=== PATIENT | female | born 1940 | race Hispanic/Latino ===

== ENCOUNTER 2021-11-03 21:43 | Inpatient (IN) | payer MEDICARE ==
[2021-11-03] MEDS ORDERED: SODIUM CHLORIDE 0.9% 1000 ML 1,000 ML IV ONE (22:10)
[2021-11-03] MEDS ORDERED: ACETAMINOPHEN 500 MG TAB PO ONE (22:12)
--- NOTE | 2021-11-03 22:16 | Emergency Department Report ---
ED Shortness of Breath HPI - General Chief Complaint: Dyspnea/Respdistress Stated Complaint: HELENA Time Seen by Provider: 11/03/21 22:05 Source: patient, EMS Mode of arrival: Stretcher Limitations: No Limitations - History of Present Illness Initial Comments: Patient is 81 years old female with history of hypertension, diabetes and arthritis. Patient brought to the emergency room via EMS from home for evaluation of shortness of breath and difficulty breathing for the last 2 to 3 days associated with fever of 102.2 according to the patient . Patient found to be tachypneic with an oxygen saturation initially 76% improved to 88% on nonrebreather. EMS reported that patient received 2 doses of COVID-19 vaccine. MD Complaint: shortness of breath, cough - Related Data Allergies Allergy/AdvReac Type Severity Reaction Status Date / Time codeine Allergy Unknown Unverified 05/25/14 11:35 meperidine HCl [From Demerol] Allergy Unknown Unverified 05/25/14 11:35 morphine Allergy Unknown Unverified 05/25/14 11:35 Penicillins Allergy Swelling Unverified 05/25/14 11:35 ED Review of Systems ROS: Stated complaint: HELENA Other details as noted in HPI Comment: All other systems reviewed and negative Constitutional: chills, fever Respiratory: cough, orthopnea, shortness of breath, SOB with exertion, SOB at rest. denies: wheezing Cardiovascular: denies: chest pain, palpitations Gastrointestinal: denies: abdominal pain, nausea, vomiting Musculoskeletal: denies: back pain Neurological: denies: headache, weakness ED Physical Exam - General Limitations: No Limitations General appearance: alert, in distress - Head Head exam: Present: atraumatic, normocephalic, normal inspection - Eye Eye exam: Present: normal appearance, PERRL - ENT ENT exam: Present: normal exam - Neck Neck exam: Present: normal inspection, full ROM. Absent: tenderness, meningismus - Respiratory Respiratory exam: Present: respiratory distress, rales, accessory muscle use, decreased breath sounds - GI/Abdominal GI/Abdominal exam: Present: soft. Absent: distended, tenderness, guarding - Extremities Exam Extremities exam: Present: pedal edema - Neurological Exam Neurological exam: Present: alert, oriented X3, CN II-XII intact - Skin Skin exam: Present: warm ED Course Vital Signs 11/03/21 22:15 Temperature 99.7 F H Pulse Rate 120 H Respiratory 26 H Rate Blood Pressure 110/70 [Left] O2 Sat by Pulse 88 Oximetry ED Medical Decision Making - Lab Data Result diagrams: 11/03/21 22:32 11/03/21 22:32 - Radiology Data Radiology results: report reviewed - Medical Decision Making Patient is 81 years old female with history of hypertension, diabetes and arthritis. Patient brought to the emergency room via EMS from home for evalua tion of shortness of breath and difficulty breathing for the last 2 to 3 days associated with fever of 102.2 according to the patient . Patient found to be tachypneic with an oxygen saturation initially 76% improved to 88% on nonrebreather. EMS reported that patient received 2 doses of COVID-19 vaccine. Labs reviewed and showed leukocytosis of 29,000. Chest x-ray showed bilateral infiltrate concerning for pneumonia. Patient received Levaquin and vancomycin. Lactic acid is 3.2. Patient started on normal saline with gentle hydration at 125 mL/h. Patient found to be anemic with a hemoglobin of 6.1. MCV 75. Patient denies any hematemesis, hematochezia or melena. No hemoptysis. Patient received 1 units of PRBC. I discussed the patient with Dr. Mckeno, he agreed to admit the patient to medical service for further management. Critical Care Time: Yes Critical care time in (mins) excluding proc time.: 35 Critical care attestation.: If time is entered above; I have spent that time in minutes in the direct care of this critically ill patient, excluding procedure time. ED Disposition Clinical Impression: Acute respiratory failure with hypoxia, Bilateral pneumonia, Suspected COVID-19 virus infection, Acute anemia Disposition: 09 ADMITTED INPATIENT Is pt being admited?: Yes Condition: Stable Instructions: Bacterial Pneumonia (ED) Referrals: PRIMARY CARE, [Primary Care Provider] - 3-5 Days
--- NOTE | 2021-11-03 22:50 | XRay Report ---
CHEST 1 VIEW 11/03/2021 9:34 PM INDICATION / CLINICAL INFORMATION: Dyspnea. 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 LUNGS / PLEURA: Bilateral interstitial opacities and bilateral pleural effusions. Bibasilar opacities likely represent atelectasis. No pneumothorax. ADDITIONAL FINDINGS: No significant additional findings. IMPRESSION: 1. Bilateral interstitial pulmonary edema with bilateral pleural effusions. 2. Bibasilar opacities favor atelectasis. 3. Cardiomegaly. Signer Name: Saul Rodgers MD Signed: 11/03/2021 10:46 PM Workstation Name: [email or web address] [id number]
[2021-11-03 23:00] LABS: Mean Corpuscular HGB Conc 28 % (30-34); Mean Corpuscular Volume 75 fl (79-97); Platelet Count 276 K/mm3 (140-440); Red Blood Count 2.93 M/mm3 (3.65-5.03); Red Cell Distribution Width 19.7 % (13.2-15.2)
[2021-11-03 23:03] LABS: INR 1.4 (0.87-1.13)
[2021-11-03 23:04] LABS: Partial Thromboplastin Time 28.9 Sec. (24.2-36.6)
[2021-11-03 23:07] LABS: Hematocrit 21.9 % (30.3-42.9); Hemoglobin 6.1 gm/dl (10.1-14.3)
[2021-11-03 23:16] LABS: Calcium 8.3 mg/dL (8.4-10.2)
[2021-11-03] MEDS ORDERED: SODIUM CHLORIDE 0.9% 500 ML 500 ML IV ONE (23:19)
[2021-11-03 23:21] LABS: Alanine Aminotransferase 11 units/L (7-56); Albumin 3.5 g/dL (3.9-5)
[2021-11-03 23:45] LABS: Bilirubin,Direct < 0.2 mg/dL (0-0.2)
[2021-11-04] MEDS ORDERED: VANCOMYCIN/NS 1 GM/250 ML 1 GM/250 ML BAG IV ONE (00:01)
[2021-11-04] MEDS ORDERED: dexAMETHasone 4 MG/ML VIAL IV ONE (01:28)
[2021-11-04 01:32] LABS: Chol/HDL Ratio 1.9 %
[2021-11-04] MEDS ORDERED: MORPHINE 4 MG/1 ML INJ IV PRN (02:03)
[2021-11-04] MEDS ORDERED: DEXTROSE 50% IN WATER (25GM) 50 ML SYRINGE IV PRN (02:03)
[2021-11-04] MEDS ORDERED: MAGNESIUM HYDROXIDE (MOM) ORAL LIQD UDC PO PRN (02:03)
[2021-11-04] MEDS ORDERED: MORPHINE 2 MG/1 ML INJ IV PRN (02:03)
[2021-11-04 02:08] LABS: Basophils % (Manual) 0 % (0.0-1.8); Eosinophils % (Manual) 0 % (0.0-4.3); Monocytes % (Manual) 0 % (0.0-7.3); Total Cells Counted 100
[2021-11-04 02:09] LABS: Hypochromasia 2+
[2021-11-04 02:10] LABS: Anisocytosis 1+; Platelet Estimate Consistent w Auto
[2021-11-04] MEDS ORDERED: SODIUM CHLORIDE 0.9% 1000 ML 1,000 ML IV SCH ×2 (02:15)
--- NOTE | 2021-11-04 02:24 | History and Physical Report ---
History of Present Illness Date of examination: 11/04/21 Date of admission: 11/04/2021 Chief complaint: Shortness of Breath History of present illness: 81-year-old female with known history of diabetes mellitus, hypertension and arthritis brought to the emergency room via EMS today for shortness of breath which has been ongoing for the past 3 days. Patient has been having some cough and shortness of breath. According to patient's , patient has also been h aving a fever of about 102.2 F. Upon arrival of EMS patient was found to be tachypneic with O2 saturation of 76% on room air which later improved to 88% on nonrebreather. Work-up in the emergency room today, chest x-ray shows bilateral interstitial pulmonary edema with bilateral pleural effusions.. Bibasilar opacities which favors atelectasis. Lab reveals leukocytosis of 29. Hemoglobin of 6.1. Patient is being prepared for blood transfusion and will also be checked for COVID-19. Past History Past Medical History: No medical history Past Surgical History: No surgical history Social history: no significant social history Family history: no significant family history Medications and Allergies Allergies Allergy/AdvReac Type Severity Reaction Status Date / Time codeine Allergy Unknown Verified 11/04/21 02:20 meperidine HCl [From Demerol] Allergy Unknown Verified 11/04/21 02:21 morphine Allergy Unknown Verified 11/04/21 02:21 Penicillins Allergy Swelling Verified 11/04/21 02:21 Active Meds: Active Medications Acetaminophen (Acetaminophen 325 Mg Tab) 650 mg PO Q6H PRN PRN Reason: Pain MILD(1-3)/Fever >100.5/RODRIGUEZ Dextrose (Dextrose 50% In Water (25gm) 50 Ml Syringe) 50 ml IV Q30MIN PRN; Protocol PRN Reason: Hypoglycemia Dextrose (Dextrose 50% In Water (25gm) 50 Ml Syringe) 50 ml IV Q30MIN PRN; Protocol PRN Reason: Hypoglycemia Heparin Sodium (Porcine) (Heparin 5,000 Unit/1 Ml Vial) 5,000 unit SUB-Q Q8HR YOS[facility] Sodium Chloride (Nacl 0.9% 1000 Ml) 1,000 mls @ 125 mls/hr IV ONCE ONE Stop: 11/04/21 06:09 Sodium Chloride (Nacl 0.9% 1000 Ml) 1,000 mls @ 75 mls/hr IV DIRECT YOSSI Sodium Chloride (Nacl 0.9% 1000 Ml) 1,000 mls @ 75 mls/hr IV DIRECT YOSSI Levofloxacin/Dextrose (Levaquin 750mg/150ml) 750 mg in 150 mls @ 100 mls/hr IV Q24H YOS[facility]; Protocol Insulin Human Lispro (Insulin Lispro 100 Unit/Ml) 0 unit SUB-Q ACHS YOSSI; Protocol Insulin Human Lispro (Insulin Lispro 100 Unit/Ml) 0 unit SUB-Q Q6HR YOS[facility]; Protocol Magnesium Hydroxide (Magnesium Hydroxide (Mom) Oral Liqd Udc) 30 ml PO Q4H PRN PRN Reason: Constipation Morphine Sulfate (Morphine 2 Mg/1 Ml Inj) 2 mg IV Q4H PRN PRN Reason: Pain, Moderate (4-6) Morphine Sulfate (Morphine 4 Mg/1 Ml Inj) 4 mg IV Q4H PRN PRN Reason: Pain , Severe (7-10) Ondansetron HCl (Ondansetron 4 Mg/2 Ml Inj) 4 mg IV Q8H PRN PRN Reason: Nausea And Vomiting Sodium Chloride (Sodium Chloride 0.9% 10 Ml Flush Syringe) 10 ml IV BID YOSSI Sodium Chloride (Sodium Chloride 0.9% 10 Ml Flush Syringe) 10 ml IV PRN PRN PRN Reason: LINE FLUSH Review of Systems Constitutional: fever, no chills Ears, nose, mouth and throat: no nasal congestion, no sore throat Cardiovascular: no chest pain, no palpitations Respiratory: cough, shortness of breath Gastrointestinal: no abdominal pain, no nausea, no vomiting, no diarrhea Genitourinary Female: no pelvic pain, no flank pain, no dysuria, no hematuria Musculoskeletal: no neck pain, no low back pain Integumentary: no rash, no pruritis Neurological: no headaches, no confusion Psychiatric: no anxiety, no depression Endocrine: no polydipsia, no polyuria, no nocturia Exam - Constitutional Vitals: Temp Pulse Resp BP Pulse Ox 99.7 F H 120 H 26 H 110/70 88 11/03/21 22:15 11/03/21 22:15 11/03/21 22:15 11/03/21 22:15 11/03/21 22:15 General appearance: Present: no acute distress, well-nourished, other (Moderate pallor) - EENT Eyes: Present: PERRL, EOM intact. Absent: scleral icterus ENT: hearing intact, clear oral mucosa, dentition normal - Neck Neck: Present: supple, normal ROM - Respiratory Respiratory effort: normal Respiratory: bilateral: diminished - Cardiovascular Rhythm: regular Heart Sounds: Present: S1 & S2. Absent: systolic murmur, diastolic murmur, rub, click - Extremities Extremities: no ischemia, pulses intact, pulses symmetrical, normal temperature, normal color, Full ROM Extremity abnormal: edema (1+ bilateral lower extremity edema) Peripheral Pulses: within normal limits - Abdominal General gastrointestinal: Present: soft, non-tender, non-distended, normal bowel sounds. Absent: mass - Integumentary Integumentary: Present: clear, warm, dry. Absent: rash - Musculoskeletal Musculoskeletal: strength equal bilaterally - Psychiatric Psychiatric: appropriate mood/affect, intact judgment & insight, memory intact, cooperative - Neurologic Neurologic: CNII-XII intact, no focal deficits, moves all extremities HEART Score - HEART Score Troponin: Troponin T 0.051 ng/mL (0.00-0.029) H D 11/04/21 00:59 Results - Labs CBC & Chem 7: 11/03/21 22:32 11/03/21 22:32 Labs: Abnormal lab results 11/03/21 11/03/21 11/03/21 Range/Units 22:32 22:32 22:32 WBC 29.3 H (4.5-11.0) K/mm3 RBC 2.93 L (3.65-5.03) M/mm3 Hgb 6.1 L (10.1-14.3) gm/dl Hct 21.9 L (30.3-42.9) % MCV 75 L (79-97) fl MCH 21 L (28-32) pg MCHC 28 L (30-34) % RDW 19.7 H (13.2-15.2) % Seg Neuts % (Manual) 97.0 H (40.0-70.0) % Lymphocytes % (Manual) 3.0 L (13.4-35.0) % Seg Neutrophils # Man 28.4 H (1.8-7.7) K/mm3 Lymphocytes # (Manual) 0.9 L (1.2-5.4) K/mm3 PT 18.6 H (12.2-14.9) Sec. INR 1.40 H (0.87-1.13) Carbon Dioxide 20 L (22-30) mmol/L BUN 33 H (7-17) mg/dL Glucose 119 H (65-100) mg/dL Lactic Acid (0.7-2.0) mmol/L Calcium 8.3 L (8.4-10.2) mg/dL Alkaline Phosphatase (35-129) units/L Troponin T 0.035 H (0.00-0.029) ng/mL NT-Pro-B Natriuret Pep (0-900) pg/mL Albumin (3.9-5) g/dL LDL Cholesterol Direct 34 L (50-130) mg/dL Crossmatch 11/03/21 11/03/21 11/03/21 Range/Units 22:32 22:32 23:57 WBC (4.5-11.0) K/mm3 RBC (3.65-5.03) M/mm3 Hgb (10.1-14.3) gm/dl Hct (30.3-42.9) % MCV (79-97) fl MCH (28-32) pg MCHC (30-34) % RDW (13.2-15.2) % Seg Neuts % (Manual) (40.0-70.0) % Lymphocytes % (Manual) (13.4-35.0) % Seg Neutrophils # Man (1.8-7.7) K/mm3 Lymphocytes # (Manual) (1.2-5.4) K/mm3 PT (12.2-14.9) Sec. INR (0.87-1.13) Carbon Dioxide (22-30) mmol/L BUN (7-17) mg/dL Glucose (65-100) mg/dL Lactic Acid 3.70 H* (0.7-2.0) mmol/L Calcium (8.4-10.2) mg/dL Alkaline Phosphatase 139 H (35-129) units/L Troponin T (0.00-0.029) ng/mL NT-Pro-B Natriuret Pep 7895 H (0-900) pg/mL Albumin 3.5 L (3.9-5) g/dL LDL Cholesterol Direct (50-130) mg/dL Crossmatch See Detail 11/04/21 Range/Units 00:59 WBC (4.5-11.0) K/mm3 RBC (3.65-5.03) M/mm3 Hgb (10.1-14.3) gm/dl Hct (30.3-42.9) % MCV (79-97) fl MCH (28-32) pg MCHC (30-34) % RDW (13.2-15.2) % Seg Neuts % (Manual) (40.0-70.0) % Lymphocytes % (Manual) (13.4-35.0) % Seg Neutrophils # Man (1.8-7.7) K/mm3 Lymphocytes # (Manual) (1.2-5.4) K/mm3 PT (12.2-14.9) Sec. INR (0.87-1.13) Carbon Dioxide (22-30) mmol/L BUN (7-17) mg/dL Glucose (65-100) mg/dL Lactic Acid (0.7-2.0) mmol/L Calcium (8.4-10.2) mg/dL Alkaline Phosphatase (35-129) units/L Troponin T 0.051 H D (0.00-0.029) ng/mL NT-Pro-B Natriuret Pep (0-900) pg/mL Albumin (3.9-5) g/dL LDL Cholesterol Direct (50-130) mg/dL Crossmatch Assessment and Plan - Patient Problems (1) Acute respiratory failure with hypoxia Current Visit: Yes Status: Acute Plan to address problem: Possibly secondary to underlying pleural effusion versus pneumonia. Will keep O2 saturation greater or equal to 92%. (2) Acute anemia Current Visit: Yes Status: Acute Plan to address problem: Patient denies any rectal bleeding. She is being prepared for blood transfusion. We will monitor CBC. We will check stool Hemoccults. (3) Bilateral pneumonia Current Visit: Yes Status: Acute Plan to address problem: Patient placed on empiric IV antibiotics. Will await culture results. (4) Suspected COVID-19 virus infection Current Visit: Yes Status: Acute Plan to address problem: Will await COVID-19 testing. (5) DVT prophylaxis Current Visit: Yes Status: Acute Plan to address problem: Patient placed on subcutaneous heparin. (6) Full code status Current Visit: Yes Status: Acute Plan to address problem: Patient is full code.
[2021-11-04] MEDS ORDERED: INSULIN LISPRO 100 UNIT/ML SUB-Q SCH (06:00)
[2021-11-04] MEDS: INSULIN LISPRO 100 UNIT/ML SUB-Q SCH ×2 (09:29→17:39)
--- NOTE | 2021-11-04 09:40 | Progress Note ---
Assessment and Plan Assessment and plan: History of present illness: 81-year-old female with known history of diabetes mellitus, hypertension and arthritis brought to the emergency room via EMS today for shortness of breath which has been ongoing for the past 3 days. Patient has been having some cough and shortness of breath. According to patient's , patient has also been having a fever of about 102.2 F. Upon arrival of EMS patient was found to be tachypneic with O2 saturation of 76% on room air which later improved to 88% on nonrebreather. Disposition : ICU Hospital Course to date: 11/04/2021: Empiric therapy with iv levaquin/vancomycin. COVID PCR pending. Will consult ID. PCCM consulted, will follow recs. Hypotensive this AM, ordered bolus and fluids at 150 cc/hr. May require pressor support if bp does not improve. Assessment and Plan: #Acute respiratory failure with hypoxia - nrb - abx iv - work up as below - ccm consultation #Acute microcytic anemia - hgb 6.1, mcv: 75 - ordered 1 unit prbc #Severe Sepsis POA vs septic shock - wbc: 29.3, LA 3.7, febrile, source pulmonary - hypotensive, fluid bolus, blood products...may require pressors if unresponsive. - bcx, scx, ucx - empiric iv abx #Bilateral pneumonia #Suspected COVID-19 virus infection #Advance care planning Disease education conducted, care plan discussed, diagnoses discussed, prognosis discussed, patient is full code, patient acknowledges understanding and agree with care plan, +30 minutes. The high probability of a clinically significant, sudden or life threatening deterioration of the [multi] system(s) required my full and direct attention, intervention and personal management. The aggregate critical care time was [60] minutes. This time is in addition to time spent performing reported procedures but includes the following: [x] Data Review and interpretation [x] Patient assessment and monitoring of vital signs [x] Documentation [x] Medication orders and management History Interval history: Slightly confused on my encounter. Patient pulse oximeter malfunction but just prior saw sats 90's. Ventimask on but barely. Patient state she continues to feel unwell, very weak. Denies chest pain but does state she is still short of breath. Endorses chills. Hospitalist Physical - Physical exam Narrative exam: Physical Exam: VITAL SIGNS: Reviewed. GENERAL: The patient appears normally developed, Vital signs as documented. Frail appearing elderly woman. HEAD: No signs of head trauma. EYES: Pupils are equal. Extraocular motions intact. EARS: Hearing grossly intact. MOUTH: Oropharynx is normal. NECK: No adenopathy, no JVD. CHEST: Bl rhonchi CARDIAC: Regular rate and rhythm. S1 and S2, without murmurs, gallops, or rubs. VASCULAR: No Edema. Peripheral pulses normal and equal in all extremities. ABDOMEN: Soft, non tender and non distended. No rebound or guarding, and no masses palpated. Bowel Sounds normal. MUSCULOSKELETAL: Good range of motion of all major joints. Extremities without clubbing, cyanosis or edema. NEUROLOGIC EXAM: Alert and oriented x 4. no focal sensory or strength deficits. PSYCHIATRIC: anxious appearing SKIN: detail exam as documented in skin assessment - Constitutional Vitals: Temp Pulse Resp BP Pulse Ox 98.1 F 88 14 68/50 91 11/04/21 06:55 11/04/21 08:00 11/04/21 08:00 11/04/21 08:00 11/04/21 07:46 General appearance: Present: no acute distress, well-nourished, other (Moderate pallor) HEART Score - HEART Score Troponin: Troponin T 0.051 ng/mL (0.00-0.029) H D 11/04/21 00:59 Results - Labs CBC & Chem 7: 11/03/21 22:32 11/03/21 22:32 Labs: Laboratory Last Values WBC 29.3 K/mm3 (4.5-11.0) H 11/03/21 22:32 RBC 2.93 M/mm3 (3.65-5.03) L 11/03/21 22:32 Hgb 6.1 gm/dl (10.1-14.3) L 11/03/21 22:32 Hct 21.9 % (30.3-42.9) L 11/03/21 22:32 MCV 75 fl (79-97) L 11/03/21 22:32 MCH 21 pg (28-32) L 11/03/21 22:32 MCHC 28 % (30-34) L 11/03/21 22:32 RDW 19.7 % (13.2-15.2) H 11/03/21 22:32 Plt Count 276 K/mm3 (140-440) 11/03/21 22:32 Add Manual Diff Complete 11/03/21: Total Counted 100 11/03/21 22:32 Seg 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 11/03/21 22:32 Seg Neuts % (Manual) 97.0 % (40.0-70.0) H 11/03/21 22:32 Band Neutrophils % 0 % 11/03/21 22:32 Lymphocytes % (Manual) 3.0 % (13.4-35.0) L 11/03/21 22:32 Reactive Lymphs % (Man) 0 % 11/03/21 22:32 Monocytes % (Manual) 0 % (0.0-7.3) 11/03/21:32 Eosinophils % (Manual) 0 % (0.0-4.3) 11/03/21:32 Basophils % (Manual) 0 % (0.0-1.8) 11/03/21 22:32 Metamyelocytes % 0 % 11/03/21: Myelocytes % 0 % 11/03/21:32 Promyelocytes % 0 % 11/03/21 22:32 Blast Cells % 0 % 11/03/21:32 Nucleated RBC % Not Reportable 11/03/21: Seg Neutrophils # Man 28.4 K/mm3 (1.8-7.7) H 11/03/21 22:32 Band Neutrophils # 0.0 K/mm3 11/03/21 22:32 Lymphocytes # (Manual) 0.9 K/mm3 (1.2-5.4) L 11/03/21 22:32 Abs React Lymphs (Man) 0.0 K/mm3 11/03/21:32 Monocytes # (Manual) 0.0 K/mm3 (0.0-0.8) 11/03/21 22:32 Eosinophils # (Manual) 0.0 K/mm3 (0.0-0.4) 11/03/21 22:32 Basophils # (Manual) 0.0 K/mm3 (0.0-0.1) 11/03/21 22:32 Metamyelocytes # 0.0 K/mm3 11/03/21 22:32 Myelocytes # 0.0 K/mm3 11/03/21 22:32 Promyelocytes # 0.0 K/mm3 11/03/21 22:32 Blast Cells # 0.0 K/mm3 11/03/21 22:32 WBC Morphology Not Reportable 11/03/21 22:32 Hypersegmented Neuts Not Reportable 11/03/21 22:32 Hyposegmented Neuts Not Reportable 11/03/21 22:32 Hypogranular Neuts Not Reportable 11/03/21 22:32 Smudge Cells Not Reportable 11/03/21 22:32 Toxic Granulation Not Reportable 11/03/21 22:32 Toxic Vacuolation Not Reportable 11/03/21 22:32 Dohle Bodies Not Reportable 11/03/21 22:32 Pelger-Huet Anomaly Not Reportable 11/03/21 22:32 Irina Rods Not Reportable 11/03/21 22:32 Platelet Estimate Consistent w auto 11/03/21 22:32 Clumped Platelets Not Reportable 11/03/21 22:32 Plt Clumps, EDTA Not Reportable 11/03/21 22:32 Large Platelets Not Reportable 11/03/21 22:32 Giant Platelets Not Reportable 11/03/21 22:32 Platelet Satelliting Not Reportable 11/03/21 22:32 Plt Morphology Comment Not Reportable 11/03/21 22:32 RBC Morphology Not Reportable 11/03/21 22:32 Dimorphic RBCs Not Reportable 11/03/21 22:32 Polychromasia Not Reportable 11/03/21 22:32 Hypochromasia 2+ 11/03/21 22:32 Poikilocytosis Not Reportable 11/03/21 22:32 Anisocytosis 1+ 11/03/21 22:32 Microcytosis Not Reportable 11/03/21 22:32 Macrocytosis Not Reportable 11/03/21 22:32 Spherocytes Not Reportable 11/03/21 22:32 Pappenheimer Bodies Not Reportable 11/03/21 22:32 Sickle Cells Not Reportable 11/03/21 22:32 Target Cells Not Reportable 11/03/21 22:32 Tear Drop Cells Not Reportable 11/03/21 22:32 Ovalocytes Not Reportable 11/03/21 22:32 Helmet Cells Not Reportable 11/03/21 22:32 Odonnell-[place] Bodies Not Reportable 11/03/21 22:32 Elma Rings Not Reportable 11/03/21 22:32 [place] Cells Not Reportable 11/03/21 22:32 Bite Cells Not Reportable 11/03/21 22:32 Crenated Cell Not Reportable 11/03/21 22:32 Elliptocytes Not Reportable 11/03/21 22:32 Acanthocytes (Spur) Not Reportable 11/03/21 22:32 Rouleaux Not Reportable 11/03/21 22:32 Hemoglobin C Crystals Not Reportable 11/03/21 22:32 Schistocytes Not Reportable 11/03/21 22:32 Malaria parasites Not Reportable 11/03/21 22:32 Godfrey Bodies Not Reportable 11/03/21 22:32 Hem Pathologist Commnt No 11/03/21 22:32 PT 18.6 Sec. (12.2-14.9) H 11/03/21 22:32 INR 1.40 (0.87-1.13) H 11/03/21 22:32 APTT 28.9 Sec. (24.2-36.6) 11/03/21 22:32 Sodium 138 mmol/L (137-145) 11/03/21 22:32 Potassium 4.0 mmol/L (3.6-5.0) 11/03/21 22:32 Chloride 101.3 mmol/L (98-107) 11/03/21 22:32 Carbon Dioxide 20 mmol/L (22-30) L 11/03/21 22:32 Anion Gap 21 mmol/L 11/03/21 22:32 BUN 33 mg/dL (7-17) H 11/03/21 22:32 Creatinine 1.0 mg/dL (0.6-1.2) 11/03/21 22:32 Estimated GFR 53 ml/min 11/03/21 22:32 BUN/Creatinine Ratio 33 % 11/03/21 22:32 Glucose 119 mg/dL (65-100) H 11/03/21 22:32 Lactic Acid 3.70 mmol/L (0.7-2.0) H* 11/03/21 22:32 Calcium 8.3 mg/dL (8.4-10.2) L 11/03/21 22:32 Total Bilirubin 0.40 mg/dL (0.1-1.2) 11/03/21 22:32 Direct Bilirubin < 0.2 mg/dL (0-0.2) 11/03/21 22:32 Indirect Bilirubin 0.2 mg/dL 11/03/21 22:32 AST 19 units/L (5-40) 11/03/21 22:32 ALT 11 units/L (7-56) 11/03/21 22:32 Alkaline Phosphatase 139 units/L (35-129) H 11/03/21 22:32 Troponin T 0.051 ng/mL (0.00-0.029) H D 11/04/21 00:59 NT-Pro-B Natriuret Pep 7895 pg/mL (0-900) H 11/03/21 22:32 Total Protein 6.5 g/dL (6.3-8.2) 11/03/21 22:32 Albumin 3.5 g/dL (3.9-5) L 11/03/21 22:32 Albumin/Globulin Ratio 1.2 % 11/03/21 22:32 Triglycerides 66 mg/dL (2-149) 11/03/21 22:32 Cholesterol 80 mg/dL (50-199) 11/03/21 22:32 LDL Cholesterol Direct 34 mg/dL (50-130) L 11/03/21 22:32 HDL Cholesterol 42 mg/dL (40-59) 11/03/21 22:32 Cholesterol/HDL Ratio 1.90 % 11/03/21 22:32 Blood Type O POSITIVE 11/03/21 23:57 Antibody Screen Negative 11/03/21 23:57 Crossmatch See Detail 11/03/21 23:57 Microbiology: Microbiology 11/03/21 22:57 Peripheral/Venous Blood Culture - Preliminary Culture in Progress 11/03/21 22:32 Peripheral/Venous Blood Culture - Preliminary Culture in Progress Active Medications - Current Medications Current Medications: Generic Name Dose Route Start Last Admin Trade Name Freq PRN Reason Stop Dose Admin Acetaminophen 650 mg 11/04/21 02:03 Acetaminophen 325 Mg Tab PO Q6H PRN Pain MILD(1-3)/Fever >100.5/RODRIGUEZ Dextrose 50 ml 11/04/21 02:03 Dextrose 50% In Water (25gm) 50 Ml Syringe IV Q30MIN PRN Hypoglycemia Protocol Heparin Sodium (Porcine) 5,000 unit 11/04/21 06:00 Heparin 5,000 Unit/1 Ml Vial SUB-Q Q8HR [facility] Sodium Chloride 1,000 mls @ 75 mls/hr 11/04/21 02:15 Nacl 0.9% 1000 Ml IV DIRECT YOSSI Levofloxacin/Dextrose 750 mg in 150 mls @ 100 mls/hr 11/04/21 03:00 11/04/21 02:55 Levaquin 750mg/150ml IV 100 mls/hr Q48H [facility] Administration Protocol Insulin Human Lispro 0 unit 11/04/21 07:30 Insulin Lispro 100 Unit/Ml SUB-Q ACHS YOSSI Protocol Insulin Human Lispro 0 unit 11/04/21 06:00 Insulin Lispro 100 Unit/Ml SUB-Q Q6HR [facility] Protocol Magnesium Hydroxide 30 ml 11/04/21 02:03 Magnesium Hydroxide (Mom) Oral Liqd Udc PO Q4H PRN Constipation Ondansetron HCl 4 mg 11/04/21 02:03 Ondansetron 4 Mg/2 Ml Inj IV Q8H PRN Nausea And Vomiting Sodium Chloride 10 ml 11/04/21 10:00 Sodium Chloride 0.9% 10 Ml Flush Syringe IV BID YOSSI Sodium Chloride 10 ml 11/04/21 02:03 Sodium Chloride 0.9% 10 Ml Flush Syringe IV PRN PRN LINE FLUSH
[2021-11-04 14:33] LABS: Mean Corpuscular HGB Conc 29 % (30-34); Mean Corpuscular Volume 78 fl (79-97); Platelet Count 231 K/mm3 (140-440); Red Blood Count 3.28 M/mm3 (3.65-5.03); Red Cell Distribution Width 19.1 % (13.2-15.2)
[2021-11-04 14:34] LABS: Hematocrit 25.5 % (30.3-42.9); Hemoglobin 7.3 gm/dl (10.1-14.3)
--- NOTE | 2021-11-04 14:44 | Consultation ---
History of Present Illness - Reason for Consult Consult date: 11/04/21 b/l pna, COVID PUI Requesting physician: FREDERICK DALTON - History of Present Illness The patient is a 81-year-old female with diabetes mellitus, hypertension, arthritis was admitted with shortness of breath. She was also having fever. Upon evaluation in the ER, chest x-ray showed bilateral opacities concerning for pneumonia versus pulmonary edema. COVID-19 PCR was ordered and is pending. She was febrile at home reportedly, T-max here 99.7 F. Labs showed leukocytosis with WBC 29.3, lactate 3.7, troponin 0.051, NT proBNP 7895, creatinine 1.0 Review of Systems: reviewed in the chart, unable to obtain, minimize risk of transmission Past History Past Medical History: No medical history Past Surgical History: No surgical history Social history: no significant social history Family history: no significant family history Medications and Allergies Allergies Allergy/AdvReac Type Severity Reaction Status Date / Time codeine Allergy Unknown Verified 11/04/21 02:20 meperidine HCl [From Demerol] Allergy Unknown Verified 11/04/21 02:21 morphine Allergy Unknown Verified 11/04/21 02:21 Penicillins Allergy Swelling Verified 11/04/21 02:21 Home Medications Medication Instructions Recorded Confirmed Last Taken Type Azelastine HCl [Azelastine HCl 1 drop OU BID 11/04/21 11/04/21 Unknown History 0.05%] HYDROcodone/APAP 10-325 [[place] 1 each PO Q8HR PRN 11/04/21 11/04/21 Unknown History 10/325] allopurinoL [Zyloprim] 300 mg PO QDAY 11/04/21 11/04/21 Unknown History Active Meds: Active Medications Acetaminophen (Acetaminophen 325 Mg Tab) 650 mg PO Q6H PRN PRN Reason: Pain MILD(1-3)/Fever >100.5/RODRIGUEZ Dextrose (Dextrose 50% In Water (25gm) 50 Ml Syringe) 50 ml IV Q30MIN PRN; Protocol PRN Reason: Hypoglycemia Heparin Sodium (Porcine) (Heparin 5,000 Unit/1 Ml Vial) 5,000 unit SUB-Q Q8HR [facility] Sodium Chloride (Nacl 0.9% 1000 Ml) 1,000 mls @ 150 mls/hr IV DIRECT [facility] Last Admin: 11/04/21 09:29 Dose: 150 mls/hr Ceftriaxone Sodium (Rocephin/Ns 2 Gm/100 Ml) 2 gm in 100 mls @ 200 mls/hr IV Q24HR [facility]; Protocol Insulin Human Lispro (Insulin Lispro 100 Unit/Ml) 0 unit SUB-Q ACHS [facility]; Protocol Last Admin: 11/04/21 09:29 Dose: Not Given Magnesium Hydroxide (Magnesium Hydroxide (Mom) Oral Liqd Udc) 30 ml PO Q4H PRN PRN Reason: Constipation Ondansetron HCl (Ondansetron 4 Mg/2 Ml Inj) 4 mg IV Q8H PRN PRN Reason: Nausea And Vomiting Sodium Chloride (Sodium Chloride 0.9% 10 Ml Flush Syringe) 10 ml IV BID [facility] Sodium Chloride (Sodium Chloride 0.9% 10 Ml Flush Syringe) 10 ml IV PRN PRN PRN Reason: LINE FLUSH Physical Examination - Physical Exam Narrative exam: Physical Exam (reviewed in chart to minimize risk of transmission) Constitutional: deferred Head, Ears, Nose: deferred Eyes: deferred Neck: deferred Oral: deferred Cardiovascular: deferred Respiratory: deferred GI: deferred Musculoskeletal: deferred Skin: deferred Hem/Lymphatic: deferred Psych: deferred Neurological: deferred - Constitutional Vitals: Vital Signs Temp Pulse Resp BP Pulse Ox 98.1 F 88 21 73/46 95 11/04/21 06:55 11/04/21 09:00 11/04/21 09:00 11/04/21 09:00 11/04/21 09:00 Temperature -Last 24 Hours Temperature 98.1 F Temperature 97.9 F Temperature 98.4 F Temperature 98.2 F Temperature 98.3 F Temperature 98.3 F Temperature 99.7 F Results - Labs CBC & Chem 7: 11/04/21 13:58 11/03/21 22:32 Labs: Abnormal lab results 11/03/21 11/03/21 11/03/21 Range/Units 22:32 22:32 22:32 WBC 29.3 H (4.5-11.0) K/mm3 RBC 2.93 L (3.65-5.03) M/mm3 Hgb 6.1 L (10.1-14.3) gm/dl Hct 21.9 L (30.3-42.9) % MCV 75 L (79-97) fl MCH 21 L (28-32) pg MCHC 28 L (30-34) % RDW 19.7 H (13.2-15.2) % Seg Neuts % (Manual) 97.0 H (40.0-70.0) % Lymphocytes % (Manual) 3.0 L (13.4-35.0) % Seg Neutrophils # Man 28.4 H (1.8-7.7) K/mm3 Lymphocytes # (Manual) 0.9 L (1.2-5.4) K/mm3 PT 18.6 H (12.2-14.9) Sec. INR 1.40 H (0.87-1.13) Carbon Dioxide 20 L (22-30) mmol/L BUN 33 H (7-17) mg/dL Glucose 119 H (65-100) mg/dL Lactic Acid (0.7-2.0) mmol/L Calcium 8.3 L (8.4-10.2) mg/dL Alkaline Phosphatase (35-129) units/L Troponin T 0.035 H (0.00-0.029) ng/mL NT-Pro-B Natriuret Pep (0-900) pg/mL Albumin (3.9-5) g/dL LDL Cholesterol Direct 34 L (50-130) mg/dL Crossmatch 11/03/21 11/03/21 11/03/21 Range/Units 22:32 22:32 23:57 WBC (4.5-11.0) K/mm3 RBC (3.65-5.03) M/mm3 Hgb (10.1-14.3) gm/dl Hct (30.3-42.9) % MCV (79-97) fl MCH (28-32) pg MCHC (30-34) % RDW (13.2-15.2) % Seg Neuts % (Manual) (40.0-70.0) % Lymphocytes % (Manual) (13.4-35.0) % Seg Neutrophils # Man (1.8-7.7) K/mm3 Lymphocytes # (Manual) (1.2-5.4) K/mm3 PT (12.2-14.9) Sec. INR (0.87-1.13) Carbon Dioxide (22-30) mmol/L BUN (7-17) mg/dL Glucose (65-100) mg/dL Lactic Acid 3.70 H* (0.7-2.0) mmol/L Calcium (8.4-10.2) mg/dL Alkaline Phosphatase 139 H (35-129) units/L Troponin T (0.00-0.029) ng/mL NT-Pro-B Natriuret Pep 7895 H (0-900) pg/mL Albumin 3.5 L (3.9-5) g/dL LDL Cholesterol Direct (50-130) mg/dL Crossmatch See Detail 11/04/21 11/04/21 Range/Units 00:59 13:58 WBC 27.9 H (4.5-11.0) K/mm3 RBC 3.28 L (3.65-5.03) M/mm3 Hgb 7.3 L (10.1-14.3) gm/dl Hct 25.5 L (30.3-42.9) % MCV 78 L (79-97) fl MCH 22 L (28-32) pg MCHC 29 L (30-34) % RDW 19.1 H (13.2-15.2) % Seg Neuts % (Manual) (40.0-70.0) % Lymphocytes % (Manual) (13.4-35.0) % Seg Neutrophils # Man (1.8-7.7) K/mm3 Lymphocytes # (Manual) (1.2-5.4) K/mm3 PT (12.2-14.9) Sec. INR (0.87-1.13) Carbon Dioxide (22-30) mmol/L BUN (7-17) mg/dL Glucose (65-100) mg/dL Lactic Acid (0.7-2.0) mmol/L Calcium (8.4-10.2) mg/dL Alkaline Phosphatase (35-129) units/L Troponin T 0.051 H D (0.00-0.029) ng/mL NT-Pro-B Natriuret Pep (0-900) pg/mL Albumin (3.9-5) g/dL LDL Cholesterol Direct (50-130) mg/dL Crossmatch - Imaging and Cardiology Chest x-ray: report reviewed, image reviewed (b/l atelectasis v/s pna, cardiac device present) Assessment and Plan Cultures: SARS CoV2 PCR: Pending 11/03/2021 blood culture: 2 sets positive for GPC A/P: 81-year-old female with diabetes mellitus, hypertension, arthritis was admitted with shortness of breath. She was also having fever: #Severe sepsis, secondary to bilateral pneumonia: Likely bacterial. Rule out COVID-19 also. #GPC bacteremia: Likely secondary to above. Does have indwelling cardiac device. #Acute hypoxic respiratory failure: Secondary to above. Requiring NRB. Recs: -Empiric ceftriaxone, vancomycin -Follow-up blood cultures -Repeat blood cultures ordered -TTE ordered Gumaro Baires MD, FACP, [facility] O: [phone] F: [phone]
[2021-11-04] MEDS ORDERED: VANCOMYCIN PHARMACY TO DOSE IV SCH (15:00)
[2021-11-04] MEDS: HEPARIN 5,000 UNIT/1 ML VIAL SUB-Q SCH ×2 (15:20→17:40)
[2021-11-04 15:23] LABS: Band Neutrophils # (Manual) 0.3 K/mm3; Basophils % (Manual) 0 % (0.0-1.8); Eosinophils % (Manual) 0 % (0.0-4.3); Total Cells Counted 100
[2021-11-04 15:24] LABS: Anisocytosis 1+; Hypochromasia 2+; Platelet Estimate Consistent w Auto; Toxic Granulation 1+
[2021-11-04] MEDS: cefTRIAXone/NS 2 GM/100 ML 2 GM/100 ML BAG IV SCH (18:45)
[2021-11-05] MEDS: busPIRone 5 MG TAB PO SCH ×2 (00:03→23:39)
[2021-11-05] MEDS: ACETAMINOPHEN 325 MG TAB PO PRN (00:04)
[2021-11-05] MEDS: HEPARIN 5,000 UNIT/1 ML VIAL SUB-Q SCH ×4 (00:07→23:40)
[2021-11-05] MEDS: HYDROcodone/ACETAMINOPHEN 10-325MG TAB PO PRN ×2 (01:12→08:35)
[2021-11-05 06:28] LABS: Mean Corpuscular HGB Conc 29 % (30-34); Mean Corpuscular Volume 78 fl (79-97); Platelet Count 268 K/mm3 (140-440); Red Blood Count 3.57 M/mm3 (3.65-5.03); Red Cell Distribution Width 19.2 % (13.2-15.2)
[2021-11-05] MEDS: INSULIN LISPRO 100 UNIT/ML SUB-Q SCH ×5 (06:30→22:18)
[2021-11-05 06:41] LABS: Hematocrit 27.7 % (30.3-42.9)
[2021-11-05 06:57] LABS: Albumin 3.2 g/dL (3.9-5); C-Reactive Protein 22.2 mg/dL (0.00-1.30); Calcium 8.9 mg/dL (8.4-10.2)
--- NOTE | 2021-11-05 07:25 | Consultation ---
History of Present Illness Consult date: 11/05/21 Requesting physician: FREDERICK DALTON Reason for consult: other History of present illness: 81-year-old female with known history of diabetes mellitus, hypertension and arthritis brought to the emergency room via EMS today for shortness of breath which has been ongoing for the past 3 days. Patient has been having some cough and shortness of breath. According to patient's , patient has also been having a fever of about 102.2 F. Upon arrival of EMS patient was found to be tachypneic with O2 saturation of 76% on room air which later improved to 88% on nonrebreather. Work-up in the emergency room today, chest x-ray shows bilateral interstitial pulmonary edema with bilateral pleural effusions. Bibasilar opacities which favors atelectasis. Lab reveals leukocytosis of 29. Hemoglobin of 6.1. lactate 3.7, troponin 0.051, NT proBNP 7895, creatinine 1.0 Patient is being prepared for blood transfusion and will also be checked for COVID-19. A critical care consult was placed. when I saw her the patient was in distress, she had increased work of breathing and was soft blood pressure. She was awake and alert, with conversational dyspnea. She has just received 1 unit PRBC and she has been seen by ID and started on antibiotics I discussed with the RT- placed on BIPAP Discussed with the RN, and order placed for PICC line placement and Levophed ordered Discussed with hospital medicine Past History Past Medical History: other (s/p cardiac device) Past Surgical History: No surgical history Social history: no significant social history Family history: no significant family history Medications and Allergies Allergies Allergy/AdvReac Type Severity Reaction Status Date / Time codeine Allergy Unknown Verified 11/04/21 02:20 meperidine HCl [From Demerol] Allergy Unknown Verified 11/04/21 02:21 morphine Allergy Unknown Verified 11/04/21 02:21 Penicillins Allergy Swelling Verified 11/04/21 02:21 Home Medications Medication Instructions Recorded Confirmed Last Taken Type Buspirone HCl [busPIRone] 15 mg PO DAILY 11/04/21 11/04/21 Unknown History Furosemide [Lasix] 40 mg PO QDAY 11/04/21 11/04/21 Unknown History HYDROcodone/APAP 10-325 [[place] 1 each PO Q8HR PRN 11/04/21 11/04/21 Unknown History 10/325] Levothyroxine [Synthroid] 125 mcg PO QAM 11/04/21 11/04/21 Unknown History Loratadine [Allergy Relief] 10 mg PO QDAY PRN 11/04/21 11/04/21 Unknown History Meclizine [Antivert] 12.5 mg PO BID PRN 11/04/21 11/04/21 Unknown History Nitroglycerin [Nitrostat] 0.4 mg SL PRN PRN 11/04/21 11/04/21 Unknown History Omeprazole Magnesium [Prilosec] 20 mg PO QDAY 11/04/21 11/04/21 Unknown History Ondansetron HCl [Zofran] 4 mg PO Q6HR PRN 11/04/21 11/04/21 Unknown History Pravastatin Sodium [Pravastatin] 20 mg PO QHS 11/04/21 11/04/21 Unknown History Prednisone [predniSONE (Rebeca) ER 1 mg PO QDAY 11/04/21 11/04/21 Unknown History TAB] allopurinoL [Zyloprim] 300 mg PO QDAY 11/04/21 11/04/21 Unknown History Active Meds: Active Medications Acetaminophen (Acetaminophen 325 Mg Tab) 650 mg PO Q6H PRN PRN Reason: Pain MILD(1-3)/Fever >100.5/RODRIGUEZ Last Admin: 11/05/21 00:04 Dose: 650 mg Hydrocodone Bitart/Acetaminophen (Hydrocodone/Acetaminophen 10-325mg Tab) 1 each PO Q6H PRN PRN Reason: Pain, Moderate (4-6) Last Admin: 11/05/21 01:12 Dose: 1 each Buspirone HCl (Buspirone 5 Mg Tab) 7.5 mg PO BID [facility] Last Admin: 11/05/21 00:03 Dose: 7.5 mg Dextrose (Dextrose 50% In Water (25gm) 50 Ml Syringe) 50 ml IV Q30MIN PRN; Protocol PRN Reason: Hypoglycemia Heparin Sodium (Porcine) (Heparin 5,000 Unit/1 Ml Vial) 5,000 unit SUB-Q Q8HR [facility] Last Admin: 11/05/21 00:07 Dose: 5,000 unit Sodium Chloride (Nacl 0.9% 1000 Ml) 1,000 mls @ 150 mls/hr IV DIRECT [facility] Last Admin: 11/04/21 09:29 Dose: 150 mls/hr Ceftriaxone Sodium (Rocephin/Ns 2 Gm/100 Ml) 2 gm in 100 mls @ 200 mls/hr IV Q24HR [facility]; Protocol Last Admin: 11/04/21 18:45 Dose: 200 mls/hr Vancomycin HCl (Vancomycin/Ns 1 Gm/250 Ml) 1 gm in 250 mls @ 167.007 mls/hr IV Q24HR [facility] Insulin Human Lispro (Insulin Lispro 100 Unit/Ml) 0 unit SUB-Q ACHS [facility]; Protocol Last Admin: 11/05/21 06:30 Dose: Not Given Levothyroxine Sodium (Levothyroxine 125 Mcg Tab) 125 mcg PO DAILY@0600 [facility] Magnesium Hydroxide (Magnesium Hydroxide (Mom) Oral Liqd Udc) 30 ml PO Q4H PRN PRN Reason: Constipation Ondansetron HCl (Ondansetron 4 Mg/2 Ml Inj) 4 mg IV Q8H PRN PRN Reason: Nausea And Vomiting Sodium Chloride (Sodium Chloride 0.9% 10 Ml Flush Syringe) 10 ml IV BID [facility] Last Admin: 11/05/21 00:08 Dose: 10 ml Sodium Chloride (Sodium Chloride 0.9% 10 Ml Flush Syringe) 10 ml IV PRN PRN PRN Reason: LINE FLUSH Review of Systems ROS unobtainable: due to mental status (due to respiratory distress) Physical Examination Vital signs: Vital Signs Temp Pulse Resp BP Pulse Ox 99.7 F H 120 H 26 H 110/70 88 11/03/21 22:15 11/03/21 22:15 11/03/21 22:15 11/03/21 22:15 11/03/21 22:15 General appearance: alert, appears uncomfortable, other (in moderate distress) Eyes: non-icteric ENT: oropharynx dry Neck: supple, no lymphadenopathy, no JVD Effort: mildly labored Ascultation: Bilateral: diminished breath sounds, rhonchi Cardiovascular: regular rate and rhythm, other (Tachycardia, S1,S2) Gastrointestinal: normoactive bowel sounds, soft, non-tender, non-distended Extremities: pulses normal, edema non-focal exam, pupils equal and round, other (moving all extemities, obeys commands) mood appropriate Results - Laboratory Findings CBC and BMP: 11/05/21 06:11 11/05/21 06:11 PT/INR, D-dimer PT 18.6 Sec. (12.2-14.9) H 11/03/21 22:32 INR 1.40 (0.87-1.13) H 11/03/21 22:32 D-Dimer 1494.53 ng/mlDDU (0-234) H 11/05/21 06:11 Abnormal lab findings: Abnormal Labs 11/03/21 11/03/21 11/03/21 22:32 22:32 22:32 WBC 29.3 H RBC 2.93 L Hgb 6.1 L Hct 21.9 L MCV 75 L MCH 21 L MCHC 28 L RDW 19.7 H Seg Neuts % (Manual) 97.0 H Lymphocytes % (Manual) 3.0 L Seg Neutrophils # Man 28.4 H Lymphocytes # (Manual) 0.9 L PT 18.6 H INR 1.40 H D-Dimer Carbon Dioxide 20 L BUN 33 H Glucose 119 H Lactic Acid Calcium 8.3 L AST Alkaline Phosphatase Lactate Dehydrogenase Troponin T 0.035 H C-Reactive Protein NT-Pro-B Natriuret Pep Total Protein Albumin LDL Cholesterol Direct 34 L Crossmatch 11/03/21 11/03/21 11/03/21 22:32 22:32 23:57 WBC RBC Hgb Hct MCV MCH MCHC RDW Seg Neuts % (Manual) Lymphocytes % (Manual) Seg Neutrophils # Man Lymphocytes # (Manual) PT INR D-Dimer Carbon Dioxide BUN Glucose Lactic Acid 3.70 H* Calcium AST Alkaline Phosphatase 139 H Lactate Dehydrogenase Troponin T C-Reactive Protein NT-Pro-B Natriuret Pep 7895 H Total Protein Albumin 3.5 L LDL Cholesterol Direct Crossmatch See Detail 11/04/21 11/04/21 11/05/21 00:59 13:58 00:51 WBC 27.9 H RBC 3.28 L Hgb 7.3 L Hct 25.5 L MCV 78 L MCH 22 L MCHC 29 L RDW 19.1 H Seg Neuts % (Manual) 96.0 H Lymphocytes % (Manual) 2.0 L Seg Neutrophils # Man 26.8 H Lymphocytes # (Manual) 0.6 L PT INR D-Dimer Carbon Dioxide BUN Glucose Lactic Acid Calcium AST Alkaline Phosphatase Lactate Dehydrogenase Troponin T 0.051 H D 0.032 H D C-Reactive Protein NT-Pro-B Natriuret Pep Total Protein Albumin LDL Cholesterol Direct Crossmatch 11/05/21 11/05/21 11/05/21 06:11 06:11 06:11 WBC 31.8 H RBC 3.57 L Hgb 8.0 L Hct 27.7 L MCV 78 L MCH 22 L MCHC 29 L RDW 19.2 H Seg Neuts % (Manual) Lymphocytes % (Manual) Seg Neutrophils # Man Lymphocytes # (Manual) PT INR D-Dimer 1494.53 H Carbon Dioxide 19 L BUN 42 H Glucose 115 H Lactic Acid Calcium AST 43 H Alkaline Phosphatase Lactate Dehydrogenase 187 H Troponin T C-Reactive Protein 22.20 H NT-Pro-B Natriuret Pep Total Protein 6.0 L Albumin 3.2 L LDL Cholesterol Direct Crossmatch 11/05/21 06:11 WBC RBC Hgb Hct MCV MCH MCHC RDW Seg Neuts % (Manual) Lymphocytes % (Manual) Seg Neutrophils # Man Lymphocytes # (Manual) PT INR D-Dimer Carbon Dioxide BUN Glucose Lactic Acid Calcium AST Alkaline Phosphatase Lactate Dehydrogenase Troponin T 0.033 H C-Reactive Protein NT-Pro-B Natriuret Pep Total Protein Albumin LDL Cholesterol Direct Crossmatch - Diagnostic Findings Chest x-ray: image reviewed (BIlateral mixed alveolar interstitial infiltraes, cardiomegaly, cardiac device) Assessment and Plan Severe Sepsis POA vs septic shock- 11/03/2021 blood culture: 2 sets positive for GPC Acute respiratory failure with hypoxia Acute microcytic anemia Bilateral pneumonia Suspected COVID-19 virus infection -Get ABG, BIPAP ordered for increased work of breathing -Possible a cardiogenic component to her respiratory compromise, get surface echocardiogram -Titrate supplemental oxygen to keep SpO2 88-90% -Empiric antibiotics per ID service, deescalate based on culture data and clinical response -Place PICC line and start vasopressors -Supportive transfusions keep HgB >7g/dL -No VTE prophylaxis, in view of anemia requiring blood transfusion -Get FOBT -Follow cultures -Judicious volume resuscitation, patient has evidence of heart failure radiographically with a markedly elevated BNP -Airborne and contact isolation while waiting COVID testing results The high probability of a clinically significant, sudden or life threatening deterioration of the respiratory, cardiovascular, hematology systems required my full and direct attention, intervention and personal management. The aggregate critical care time was [35] minutes. This time is in addition to time spent performing reported procedures but includes the following: [x] Data Review and interpretation [x] Patient assessment and monitoring of vital signs [x] Documentation [x] Medication orders and management
[2021-11-05 07:47] LABS: Anisocytosis 1+; Band Neutrophils # (Manual) 0.3 K/mm3; Basophils % (Manual) 0 % (0.0-1.8); Eosinophils % (Manual) 0 % (0.0-4.3); Hypochromasia 2+; Large Platelets Few; Monocytes % (Manual) 3.5 % (0.0-7.3); Platelet Estimate Consistent w Auto; Total Cells Counted 200
[2021-11-05 07:48] LABS: Toxic Granulation 1+
[2021-11-05] MEDS: ONDANSETRON 4 MG/2 ML INJ IV PRN ×2 (07:49→15:48)
[2021-11-05] MEDS: LEVOTHYROXINE 125 MCG TAB PO SCH (07:50)
--- NOTE | 2021-11-05 08:48 | Progress Note ---
Assessment and Plan Assessment and plan: History of present illness: 81-year-old female with known history of diabetes mellitus, hypertension and arthritis brought to the emergency room via EMS today for shortness of breath which has been ongoing for the past 3 days. Patient has been having some cough and shortness of breath. According to patient's , patient has also been having a fever of about 102.2 F. Upon arrival of EMS patient was found to be tachypneic with O2 saturation of 76% on room air which later improved to 88% on nonrebreather. Disposition : ICU Hospital Course to date: 11/04/2021: Empiric therapy with iv levaquin/vancomycin. COVID PCR pending. Will consult ID. PCCM consulted, will follow recs. Hypotensive this AM, ordered bolus and fluids at 150 cc/hr. May require pressor support if bp does not improve. 11/05/2021: GBS on bcx +, currently on rocephin IV. Currently on bipap due to respiratory distress overnight. Worsening BL opacities on CXR. May be volume overload vs pneumonia. Unfortunately bp too low for lasix at this point. WIll continue levophed and bipap. Once able to tolerate, may do trial of albumin/lasix. Call attempt made to [facility], no response. Will try again tomorrow to update. Assessment and Plan: #Acute respiratory failure with hypoxia - now on bipap currently. - cxr shows worsening bl opacities, may be volume overloaded. - abx iv - work up as below - [facility] consultation #Septic shock POA - wbc: 29.3, LA 3.7, febrile, source pulmonary - hypotensive, fluid bolus, blood products...may require pressors if unresponsive. - bcx, scx, ucx - empiric iv abx remains hypotensive, Initiate Levophed gtt #Group B strep bacteremia - 11/04 Bcx: 4/4 GBS Vancomycin/Levaquin discontinued, Rocephin continued, monitor for allergic reaction (that said risk is very low) - repeat blood cx 11/05 ordered #Bilateral pneumonia - bl opacities on cxr - scx #Acute microcytic anemia - hgb 6.1, mcv: 75 - ordered 1 unit prbc, repeat hgb improved. - trend h/h daily #Suspected COVID-19 virus infection - rt pcr negative #Advance care planning Disease education conducted, care plan discussed, diagnoses discussed, prognosis discussed, patient is full code, patient acknowledges understanding and agree with care plan, +30 minutes. The high probability of a clinically significant, sudden or life threatening deterioration of the [multi] system(s) required my full and direct attention, intervention and personal management. The aggregate critical care time was [60] minutes. This time is in addition to time spent performing reported procedures but includes the following: [x] Data Review and interpretation [x] Patient assessment and monitoring of vital signs [x] Documentation [x] Medication orders and management History Interval history: On BIPAP this morning. Patient upset over bipap mask however advised patient to not pull mask as it is maintaining saturations. Hospitalist Physical - Physical exam Narrative exam: Physical Exam: VITAL SIGNS: Reviewed. GENERAL: The patient appears normally developed, Vital signs as documented. Frail appearing elderly woman. HEAD: No signs of head trauma. EYES: Pupils are equal. Extraocular motions intact. EARS: Hearing grossly intact. MOUTH: Oropharynx is normal. NECK: No adenopathy, no JVD. CHEST: Bl rhonchi CARDIAC: Regular rate and rhythm. S1 and S2, without murmurs, gallops, or rubs. VASCULAR: No Edema. Peripheral pulses normal and equal in all extremities. ABDOMEN: Soft, non tender and non distended. No rebound or guarding, and no masses palpated. Bowel Sounds normal. MUSCULOSKELETAL: Good range of motion of all major joints. Extremities without clubbing, cyanosis or edema. NEUROLOGIC EXAM: Alert and oriented x 4. no focal sensory or strength deficits. PSYCHIATRIC: anxious appearing SKIN: detail exam as documented in skin assessment - Constitutional Vitals: Temp Pulse Resp BP Pulse Ox 97.3 F L 101 H 22 78/36 98 11/05/21 08:38 11/05/21 08:38 11/05/21 08:38 11/05/21 08:38 11/05/21 08:38 General appearance: Present: no acute distress, well-nourished, other (Moderate pallor) HEART Score - HEART Score Troponin: Troponin T 0.033 ng/mL (0.00-0.029) H 11/05/21 06:11 Results - Labs CBC & Chem 7: 11/05/21 06:11 11/05/21 06:11 Labs: Laboratory Last Values WBC 31.8 K/mm3 (4.5-11.0) H 11/05/21 06:11 RBC 3.57 M/mm3 (3.65-5.03) L 11/05/21 06:11 Hgb 8.0 gm/dl (10.1-14.3) L 11/05/21 06:11 Hct 27.7 % (30.3-42.9) L 11/05/21 06:11 MCV 78 fl (79-97) L 11/05/21 06:11 MCH 22 pg (28-32) L 11/05/21 06:11 MCHC 29 % (30-34) L 11/05/21 06:11 RDW 19.2 % (13.2-15.2) H 11/05/21 06:11 Plt Count 268 K/mm3 (140-440) 11/05/21 06:11 Add Manual Diff Complete 11/05/21 06:11 Total Counted 200 11/05/21 06:11 Seg Neutrophils % Electronic Prepress System Operator 11/05/21 06:11 Seg Neuts % (Manual) 91.0 % (40.0-70.0) H 11/05/21 06:11 Band Neutrophils % 1.0 % 11/05/21 06:11 Lymphocytes % (Manual) 4.5 % (13.4-35.0) L 11/05/21 06:11 Reactive Lymphs % (Man) 0 % 11/05/21 06:11 Monocytes % (Manual) 3.5 % (0.0-7.3) 11/05/21 06:11 Eosinophils % (Manual) 0 % (0.0-4.3) 11/05/21 06:11 Basophils % (Manual) 0 % (0.0-1.8) 11/05/21 06:11 Metamyelocytes % 0 % 11/05/21 06:11 Myelocytes % 0 % 11/05/21 06:11 Promyelocytes % 0 % 11/05/21 06:11 Blast Cells % 0 % 11/05/21 06:11 Nucleated RBC % Not Reportable 11/05/21 06:11 Seg Neutrophils # Man 28.9 K/mm3 (1.8-7.7) H 11/05/21 06:11 Band Neutrophils # 0.3 K/mm3 11/05/21 06:11 Lymphocytes # (Manual) 1.4 K/mm3 (1.2-5.4) 11/05/21 06:11 Abs React Lymphs (Man) 0.0 K/mm3 11/05/21 06:11 Monocytes # (Manual) 1.1 K/mm3 (0.0-0.8) H 11/05/21 06:11 Eosinophils # (Manual) 0.0 K/mm3 (0.0-0.4) 11/05/21 06:11 Basophils # (Manual) 0.0 K/mm3 (0.0-0.1) 11/05/21 06:11 Metamyelocytes # 0.0 K/mm3 11/05/21 06:11 Myelocytes # 0.0 K/mm3 11/05/21 06:11 Promyelocytes # 0.0 K/mm3 11/05/21 06:11 Blast Cells # 0.0 K/mm3 11/05/21 06:11 WBC Morphology Not Reportable 11/05/21 06:11 Hypersegmented Neuts Not Reportable 11/05/21 06:11 Hyposegmented Neuts Not Reportable 11/05/21 06:11 Hypogranular Neuts Not Reportable 11/05/21 06:11 Smudge Cells Not Reportable 11/05/21 06:11 Toxic Granulation 1+ 11/05/21 06:11 Toxic Vacuolation Not Reportable 11/05/21 06:11 Dohle Bodies Not Reportable 11/05/21 06:11 Pelger-Huet Anomaly Not Reportable 11/05/21 06:11 Irina Rods Not Reportable 11/05/21 06:11 Platelet Estimate Consistent w auto 11/05/21 06:11 Clumped Platelets Not Reportable 11/05/21 06:11 Plt Clumps, EDTA Not Reportable 11/05/21 06:11 Large Platelets Few 11/05/21 06:11 Giant Platelets Not Reportable 11/05/21 06:11 Platelet Satelliting Not Reportable 11/05/21 06:11 Plt Morphology Comment Not Reportable 11/05/21 06:11 RBC Morphology Not Reportable 11/05/21 06:11 Dimorphic RBCs Not Reportable 11/05/21 06:11 Polychromasia Not Reportable 11/05/21 06:11 Hypochromasia 2+ 11/05/21 06:11 Poikilocytosis Not Reportable 11/05/21 06:11 Anisocytosis 1+ 11/05/21 06:11 Microcytosis Not Reportable 11/05/21 06:11 Macrocytosis Not Reportable 11/05/21 06:11 Spherocytes Not Reportable 11/05/21 06:11 Pappenheimer Bodies Not Reportable 11/05/21 06:11 Sickle Cells Not Reportable 11/05/21 06:11 Target Cells Not Reportable 11/05/21 06:11 Tear Drop Cells Not Reportable 11/05/21 06:11 Ovalocytes Not Reportable 11/05/21 06:11 Helmet Cells Not Reportable 11/05/21 06:11 Odonnell-Burden Bodies Not Reportable 11/05/21 06:11 Bath Rings Not Reportable 11/05/21 06:11 [place] Cells Not Reportable 11/05/21 06:11 Bite Cells Not Reportable 11/05/21 06:11 Crenated Cell Not Reportable 11/05/21 06:11 Elliptocytes Not Reportable 11/05/21 06:11 Acanthocytes (Spur) Not Reportable 11/05/21 06:11 Rouleaux Not Reportable 11/05/21 06:11 Hemoglobin C Crystals Not Reportable 11/05/21 06:11 Schistocytes Not Reportable 11/05/21 06:11 Malaria parasites Not Reportable 11/05/21 06:11 Godfrey Bodies Not Reportable 11/05/21 06:11 Hem Pathologist Commnt No 11/05/21 06:11 PT 18.6 Sec. (12.2-14.9) H 11/03/21 22:32 INR 1.40 (0.87-1.13) H 11/03/21 22:32 APTT 28.9 Sec. (24.2-36.6) 11/03/21 22:32 D-Dimer 1494.53 ng/mlDDU (0-234) H 11/05/21 06:11 Sodium 139 mmol/L (137-145) 11/05/21 06:11 Potassium 4.5 mmol/L (3.6-5.0) 11/05/21 06:11 Chloride 105.4 mmol/L (98-107) 11/05/21 06:11 Carbon Dioxide 19 mmol/L (22-30) L 11/05/21 06:11 Anion Gap 19 mmol/L 11/05/21 06:11 BUN 42 mg/dL (7-17) H 11/05/21 06:11 Creatinine 1.1 mg/dL (0.6-1.2) 11/05/21 06:11 Estimated GFR 47 ml/min 11/05/21 06:11 BUN/Creatinine Ratio 38 % 11/05/21 06:11 Glucose 115 mg/dL (65-100) H 11/05/21 06:11 POC Glucose 102 mg/dL (70-105) 11/04/21 19:31 Lactic Acid 3.70 mmol/L (0.7-2.0) H* 11/03/21 22:32 Calcium 8.9 mg/dL (8.4-10.2) 11/05/21 06:11 Ferritin 52.6 ng/mL (10.0-200.0) 11/05/21 06:11 Total Bilirubin 0.30 mg/dL (0.1-1.2) 11/05/21 06:11 Direct Bilirubin < 0.2 mg/dL (0-0.2) 11/03/21 22:32 Indirect Bilirubin 0.2 mg/dL 11/03/21 22:32 AST 43 units/L (5-40) H 11/05/21 06:11 ALT 23 units/L (7-56) 11/05/21 06:11 Alkaline Phosphatase 117 units/L (35-129) 11/05/21 06:11 Lactate Dehydrogenase 187 units/L (91-180) H 11/05/21 06:11 Troponin T 0.033 ng/mL (0.00-0.029) H 11/05/21 06:11 C-Reactive Protein 22.20 mg/dL (0.00-1.30) H 11/05/21 06:11 NT-Pro-B Natriuret Pep 7895 pg/mL (0-900) H 11/03/21 22:32 Total Protein 6.0 g/dL (6.3-8.2) L 11/05/21 06:11 Albumin 3.2 g/dL (3.9-5) L 11/05/21 06:11 Albumin/Globulin Ratio 1.1 % 11/05/21 06:11 Triglycerides 66 mg/dL (2-149) 11/03/21 22:32 Cholesterol 80 mg/dL (50-199) 11/03/21 22:32 LDL Cholesterol Direct 34 mg/dL (50-130) L 11/03/21 22:32 HDL Cholesterol 42 mg/dL (40-59) 11/03/21 22:32 Cholesterol/HDL Ratio 1.90 % 11/03/21 22:32 Coronavirus (PCR) Negative (Negative) 11/04/21 Unknown Blood Type O POSITIVE 11/03/21 23:57 Antibody Screen Negative 11/03/21 23:57 Crossmatch See Detail 11/03/21 23:57 Microbiology: Microbiology 11/04/21 15:03 Peripheral/Venous Blood Culture - Preliminary Culture in Progress 11/04/21 15:03 Peripheral/Venous Blood Culture - Preliminary Culture in Progress 11/03/21 22:32 Peripheral/Venous Blood Culture - Preliminary 11/03/21 22:57 Peripheral/Venous Blood Culture - Preliminary Active Medications - Current Medications Current Medications: Generic Name Dose Route Start Last Admin Trade Name Freq PRN Reason Stop Dose Admin Acetaminophen 650 mg 11/04/21 02:03 11/05/21 00:04 Acetaminophen 325 Mg Tab PO 650 mg Q6H PRN Administration Pain MILD(1-3)/Fever >100.5/RODRIGUEZ Hydrocodone Bitart/Acetaminophen 1 each 11/05/21 00:59 11/05/21 08:35 Hydrocodone/Acetaminophen 10-325mg Tab PO 1 each Q6H PRN Administration Pain, Moderate (4-6) Buspirone HCl 7.5 mg 11/04/21 23:45 11/05/21 00:03 Buspirone 5 Mg Tab PO 7.5 mg BID YOSSI Administration Dextrose 50 ml 11/04/21 02:03 Dextrose 50% In Water (25gm) 50 Ml Syringe IV Q30MIN PRN Hypoglycemia Protocol Heparin Sodium (Porcine) 5,000 unit 11/04/21 06:00 11/05/21 07:51 Heparin 5,000 Unit/1 Ml Vial SUB-Q 5,000 unit Q8HR YOSSI Administration Sodium Chloride 1,000 mls @ 150 mls/hr 11/04/21 02:15 11/04/21 09:29 Nacl 0.9% 1000 Ml IV 150 mls/hr DIRECT YOSSI Administration Ceftriaxone Sodium 2 gm in 100 mls @ 200 mls/hr 11/04/21 15:00 11/04/21 18:45 Rocephin/Ns 2 Gm/100 Ml IV 200 mls/hr Q24HR YOSSI Administration Protocol Vancomycin HCl 1 gm in 250 mls @ 167.007 mls/hr 11/05/21 10:00 Vancomycin/Ns 1 Gm/250 Ml IV Q24HR YOSSI NORepinephrine/NS 8 MG-250 ML 8 mg in 250 mls @ 3.75 mls/hr 11/05/21 09:00 Norepinephrine/Ns 8 Mg-250 Ml (Double Conc) IV TITRATE YOSSI Protocol 2 MCG/MIN Insulin Human Lispro 0 unit 11/04/21 07:30 11/05/21 07:50 Insulin Lispro 100 Unit/Ml SUB-Q Not Given ACHS YOSSI Protocol Levothyroxine Sodium 125 mcg 11/05/21 07:00 11/05/21 07:50 Levothyroxine 125 Mcg Tab PO 125 mcg DAILY@0600 YOSSI Administration Magnesium Hydroxide 30 ml 11/04/21 02:03 Magnesium Hydroxide (Mom) Oral Liqd Udc PO Q4H PRN Constipation Ondansetron HCl 4 mg 11/04/21 02:03 11/05/21 07:49 Ondansetron 4 Mg/2 Ml Inj IV 4 mg Q8H PRN Administration Nausea And Vomiting Sodium Chloride 10 ml 11/04/21 10:00 11/05/21 00:08 Sodium Chloride 0.9% 10 Ml Flush Syringe IV 10 ml BID YOSSI Administration Sodium Chloride 10 ml 11/04/21 02:03 Sodium Chloride 0.9% 10 Ml Flush Syringe IV PRN PRN LINE FLUSH Nutrition/Malnutrition Assess - Dietary Evaluation Nutrition/Malnutrition Findings: Nutrition Notes Start: 11/04/21 17:16 Freq: Status: Active Protocol: Document 11/04/21 17:16 ISABELL (Rec: 11/04/21 17:22 ISABELL [id number]) Nutrition Notes Need for Assessment generated from: MD Order,Education Initial or Follow up Brief Note Current Diagnosis Diabetes,Hypertension, Respiratory Failure Other Pertinent Diagnosis COVID-19 pui, Bilateral Pneumonia, Acute Anemia. Current Diet Cardiac/Consistent Carbohydrates Diet (since B ). Height 5 ft Weight 58.967 kg [place] Body Weight (kg) 45.45 BMI 25.4 Weight change and time frame None reported at admission. Weight Status Appropriate Subjective/Other Information RD consult for nutrition education. No report available on PO intake of meals at the time. Pt still on ED, not a candidate for Nutrition Education at the time, will assess feasibility on F/U. Percent of energy/protein needs met: Prescribed Cardiac/Consistent Carbohydrates Diet provides for energy/protein needs (1, 977 Kcal/86 g) during LOS. Nutrition Intervention Follow-Up By: 11/11/21 Additional Comments Nutrition education will be provided on F/U if feasible. Continue monitoring food tolerance, %PO intake of meals , and BM.
[2021-11-05] MEDS: NORepinephrine/NS 8 MG-250 ML 8 MG/250 ML INFUS..BTL IV SCH ×2 (08:50→21:52)
--- NOTE | 2021-11-05 08:58 | XRay Report ---
CHEST 1 VIEW 11/05/2021 7:27 AM INDICATION / CLINICAL INFORMATION: resp failure, bilaeral [pleural effusions. COMPARISON: 11/03/2021 FINDINGS: SUPPORT DEVICES: Stable, satisfactory device positioning. HEART / MEDIASTINUM: Cardiomegaly LUNGS / PLEURA: Increased interstitial prominence and opacities with bilateral effusions appear sligh tly increased No pneumothorax. ADDITIONAL FINDINGS: No significant additional findings. IMPRESSION: 1. Worsening bilateral pulmonary opacities and effusions Signer Name: Eduard Hahn MD Signed: 11/05/2021 8:53 AM Workstation Name: [id number]
[2021-11-05] MEDS ORDERED: VANCOMYCIN/NS 1 GM/250 ML 1 GM/250 ML BAG IV SCH (10:00)
[2021-11-05] MEDS: cefTRIAXone/NS 2 GM/100 ML 2 GM/100 ML BAG IV SCH (12:14)
--- NOTE | 2021-11-05 13:30 | Progress Note ---
Assessment and Plan Cultures: SARS CoV2 PCR: negative 11/03/2021 blood culture: Group B streptococcus 11/04/2021 blood culture: In process A/P: 81-year-old female with diabetes mellitus, hypertension, arthritis was admitted with shortness of breath. She was also having fever: #Severe sepsis, secondary to bilateral pneumonia: Likely bacterial. COVID-19 negative #Group B Strep bacteremia: Likely secondary to above, no other source identified. Does have indwelling cardiac device, per patient it is a pacemaker. TTE showed no valvular or lead vegetations #Acute hypoxic respiratory failure: Secondary to above. was requiring NRB, weaned to ventimask Recs: -continue Ceftriaxone 2 gm daily -vancomycin discontinued -Follow-up blood cultures Gumaro Baires MD, FACP, [facility] O: [phone] F: [phone] Subjective Date of service: 11/05/21 Interval history: No fever. On Ventimask. COVID-19 PCR came back negative. Asking for water. Says her entire body hurts Objective - Exam Narrative Exam: Physical Exam: Constitutional: Alert, cooperative. Mild distress Head, Ears, Nose: Normocephalic, atraumatic. External ears, nose normal Eyes: Conjunctivae/corneas clear. No icterus. No ptosis. Neck: Supple, no meningeal signs Oral: ventimask Cardiovascular: S1, S2 +, PPM site non tender Respiratory: Good air entry, clear to auscultation bilaterally GI: Soft, non-tender; bowel sounds normal. No peritoneal signs Musculoskeletal: trace pedal edema, no cyanosis. dry skin Skin: No rash or abscess Hem/Lymphatic: No palpable cervical or supraclavicular nodes. No lymphangitis Psych: Mood ok. Affect normal Neurological: Awake, alert, oriented. No gross abnormality - Constitutional Vitals: Vital Signs Temp Pulse Resp BP Pulse Ox 98.5 F 103 H 20 95/58 100 11/05/21 12:18 11/05/21 12:18 11/05/21 12:18 11/05/21 12:18 11/05/21 12:18 Temperature -Last 24 Hours Temperature 98.5 F Temperature 97.3 F - Labs CBC & Chem 7: 11/05/21 06:11 11/05/21 06:11 Labs: Abnormal lab results 11/04/21 11/05/21 11/05/21 Range/Units 13:58 00:51 06:11 WBC 27.9 H 31.8 H (4.5-11.0) K/mm3 RBC 3.28 L 3.57 L (3.65-5.03) M/mm3 Hgb 7.3 L 8.0 L (10.1-14.3) gm/dl Hct 25.5 L 27.7 L (30.3-42.9) % MCV 78 L 78 L (79-97) fl MCH 22 L 22 L (28-32) pg MCHC 29 L 29 L (30-34) % RDW 19.1 H 19.2 H (13.2-15.2) % Seg Neuts % (Manual) 96.0 H 91.0 H (40.0-70.0) % Lymphocytes % (Manual) 2.0 L 4.5 L (13.4-35.0) % Seg Neutrophils # Man 26.8 H 28.9 H (1.8-7.7) K/mm3 Lymphocytes # (Manual) 0.6 L (1.2-5.4) K/mm3 Monocytes # (Manual) 1.1 H (0.0-0.8) K/mm3 D-Dimer (0-234) ng/mlDDU Carbon Dioxide (22-30) mmol/L BUN (7-17) mg/dL Glucose (65-100) mg/dL POC Glucose (70-105) mg/dL AST (5-40) units/L Lactate Dehydrogenase (91-180) units/L Troponin T 0.032 H D (0.00-0.029) ng/mL C-Reactive Protein (0.00-1.30) mg/dL Total Protein (6.3-8.2) g/dL Albumin (3.9-5) g/dL 11/05/21 11/05/21 11/05/21 Range/Units 06:11 06:11 06:11 WBC (4.5-11.0) K/mm3 RBC (3.65-5.03) M/mm3 Hgb (10.1-14.3) gm/dl Hct (30.3-42.9) % MCV (79-97) fl MCH (28-32) pg MCHC (30-34) % RDW (13.2-15.2) % Seg Neuts % (Manual) (40.0-70.0) % Lymphocytes % (Manual) (13.4-35.0) % Seg Neutrophils # Man (1.8-7.7) K/mm3 Lymphocytes # (Manual) (1.2-5.4) K/mm3 Monocytes # (Manual) (0.0-0.8) K/mm3 D-Dimer 1494.53 H (0-234) ng/mlDDU Carbon Dioxide 19 L (22-30) mmol/L BUN 42 H (7-17) mg/dL Glucose 115 H (65-100) mg/dL POC Glucose (70-105) mg/dL AST 43 H (5-40) units/L Lactate Dehydrogenase 187 H (91-180) units/L Troponin T 0.033 H (0.00-0.029) ng/mL C-Reactive Protein 22.20 H (0.00-1.30) mg/dL Total Protein 6.0 L (6.3-8.2) g/dL Albumin 3.2 L (3.9-5) g/dL 11/05/21 Range/Units 12:15 WBC (4.5-11.0) K/mm3 RBC (3.65-5.03) M/mm3 Hgb (10.1-14.3) gm/dl Hct (30.3-42.9) % MCV (79-97) fl MCH (28-32) pg MCHC (30-34) % RDW (13.2-15.2) % Seg Neuts % (Manual) (40.0-70.0) % Lymphocytes % (Manual) (13.4-35.0) % Seg Neutrophils # Man (1.8-7.7) K/mm3 Lymphocytes # (Manual) (1.2-5.4) K/mm3 Monocytes # (Manual) (0.0-0.8) K/mm3 D-Dimer (0-234) ng/mlDDU Carbon Dioxide (22-30) mmol/L BUN (7-17) mg/dL Glucose (65-100) mg/dL POC Glucose 113 H (70-105) mg/dL AST (5-40) units/L Lactate Dehydrogenase (91-180) units/L Troponin T (0.00-0.029) ng/mL C-Reactive Protein (0.00-1.30) mg/dL Total Protein (6.3-8.2) g/dL Albumin (3.9-5) g/dL
[2021-11-05] MEDS ORDERED: SODIUM CHLORIDE 0.9% 1000 ML 1,000 ML ONE (20:41)
--- NOTE | 2021-11-05 21:17 | Procedure Note ---
Date of procedure: 11/05/21 Pre-op diagnosis: Sepsis Post-op diagnosis: same Procedure: Right femoral vein triple-lumen catheter under ultrasound guidance. A timeout was taken to verify the correct patient, correct procedure, and correct operative site. Staff nurse at bedside. The patient was prepped and draped in the usual sterile fashion. Local anesthesia was obtained with lidocaine 1%. Ultrasound was utilized to localize the right femoral vein without difficulty. The Seldinger technique was utilized to access the right femoral vein under ultrasound guidance. A seeker needle was then advanced into the right femoral vein without difficulty under ultrasound guidance. A guidewire was then advanced into the right femoral vein and the seeker needle was subsequently removed over the guidewire. A scalpel was used to incise the skin. A dilator was then advanced over the guidewire into the right femoral vein and subsequently removed. A preflush triple-lumen catheter was then advanced to the right femoral vein and the guidewire subsequently removed.. All 3 ports flush and drawl with ease. The triple-lumen catheter was then sewn in place with 3-0 nylon. A Biopatch was placed at the insertion site. Complications none. Estimated blood loss minimal. Anesthesia: local Estimated blood loss: minimal Pathology: none Condition: critical Disposition: ICU
[2021-11-05] MEDS ORDERED: SODIUM CHLORIDE 0.9% 1000 ML 3,000 ML IV ONE (21:26)
[2021-11-05] MEDS ORDERED: busPIRone 5 MG TAB PO SCH (22:00)
[2021-11-05] MEDS ORDERED: VASOPRESSIN 20 UNIT in SODIUM CHLORIDE 0.9% 100 ML IV SCH (23:00)
[2021-11-06] MEDS ORDERED: ETOMIDATE 20 MG/10 ML INJ IV ONE ×2 (00:30→00:35)
[2021-11-06] MEDS ORDERED: SUCCINYLCHOLINE CHLORIDE 200 MG/10 ML INJ MDV IV ONE (00:30)
[2021-11-06] MEDS ORDERED: DOPamine 800 MG/D5W 250ML 800 MG/250 ML BAG IV ONE (00:32)
[2021-11-06] MEDS ORDERED: SUCCINYLCHOLINE CHLORIDE 200 MG/10 ML INJ MDV ONE (00:35)
--- NOTE | 2021-11-06 01:00 | Event Note ---
Date: 11/06/21 I was called to the room by patient nurse stating that patient is more obtunded and not responding painful stimuli. Her oxygen saturation is 82% on BiPAP. Patient with a GCS of 3. I immediately proceeded with intubation. Patient Ambu bag to 95%. Using medication assisted intubation. Patient initially given etomidate 20 mg and then proceeded with succinylcholine 100 mg. Using a glide scope I was able to visualized vocal cords however patient has a very narrow airway and unable to pass a 7.5 ET tube but successfully passed a 6.0 ET tube. With good color change and bilateral breath sounds on both sides. Chest x-ray ordered to confirm ET tube. Patient blood pressure also is like 54/44 I asked the patient nurse to add dopamine. I discussed the patient with Dr. Mckeon, hospitalist on-call to follow-up on the patient.
--- NOTE | 2021-11-06 01:40 | XRay Report ---
CHEST 1 VIEW 11/06/2021 12:30 AM INDICATION / CLINICAL INFORMATION: POST INTUBATION. COMPARISON: 11/05/21 FINDINGS: Patient is markedly rotated to the left. SUPPORT DEVICES: Endotracheal tube has been placed with the tip 3.6 cm above the pascale. Esophagogast teresa tube has been placed below the diaphragm into the stomach. HEART / MEDIASTINUM: Stable. LUNGS / PLEURA: Bilateral pulmonary opacities and pleural effusions are unchanged. No pneumothorax. ADDITIONAL FINDINGS: No significant additional findings. IMPRESSION: 1. Endotracheal and esophagogastric tubes in expected position. Signer Name: Dyllan Baker MD Signed: 11/06/2021 1:35 AM Workstation Name: [id number]
[2021-11-06] MEDS ORDERED: MINERAL OIL/PETROLATUM, WHITE OPHTH OINT 3.5 GM OU PRN (04:02)
[2021-11-06] MEDS ORDERED: MIDAZOLAM 2 MG/2 ML INJ IV PRN (04:02)
[2021-11-06] MEDS ORDERED: LIP THERAPY VASELINE TP PRN (04:02)
[2021-11-06] MEDS ORDERED: MIDAZOLAM 100 MG in SODIUM CHLORIDE 0.9% 80 ML IV SCH (05:00)
[2021-11-06 06:46] LABS: ABG Base Excess -9.6 mmol/L (-2.0-3.0); ABG HCO3 15.8 mmol/L (20.0-26.0); ABG Methemoglobin 0.5 % (0.0-1.5); ABG Oxygen Saturation 96.7 % (95.0-99.0); ABG PCO2 32.4 mm Hg; ABG PH 7.305 pH Units (7.350-7.450); ABG PO2 82.1 mm Hg (80.0-90.0)
[2021-11-06] MEDS: LEVOTHYROXINE 125 MCG TAB PO SCH (06:58)
[2021-11-06] MEDS: HEPARIN 5,000 UNIT/1 ML VIAL SUB-Q SCH ×3 (07:00→23:38)
--- NOTE | 2021-11-06 08:03 | Progress Note ---
Assessment and Plan Severe Sepsis POA vs septic shock- 11/03/2021 blood culture: 2 sets positive for GPC Acute respiratory failure with hypoxia, now on MVS Acute microcytic anemia Bilateral pneumonia Left pleural effusion Cardiomyopathy EF 30-35% Moderate pulmonary HTN RVSP 49 -IR for ultrasound guided thoracentesis of left pleural effusion- this will help improve respiratory mechanics. Send pleural fluid for analysis -Place PICC line and discontinue the femoral CVL -Once she gets up to the ICU, place arterial line fro invasive hemodynamic monitoring -Wean vasopressor support for MAP>655, wean off dopamine first - continue to titrate supplemental oxygen to keep SPO2 88-90% - VAP bundle addressed, aspiration precatuions - continue bronchodilators with pulmonary hygiene per RT - avoid nephrotoxins, renally dose all medications - Accuchecks with glycemic control per SSI (While critically ill target blood glucose of 140-180 mg/dL; avoid hypoglycemia) - sedation prn for target RASS 0 to -1 - continue to avoid benzodiazepines, reduce the possibility of delirium -antibiotics per ID- BCx positive for beta hemolytic strep, follow up cultures no growth to date - prn analgesia per CPOT score - Maintenance of sleep-wake cycle, avoid delirium - start enteral nutritional support once OGT placement has been confirmed - Stress and VTE prophylaxis - mobility, off loading and frequent turning to prevent pressure ulcer - Monitor hemodynamics closely - continue other care per attending / other consultants - discharge planning ongoing concurrently COVID SPECIFIC INTERVENTIONS - Negative CONDITION: CRITICAL PROGNOSIS: GUARDED CODE STATUS: FULL CODE The high probability of a clinically significant, sudden or life-threatening deterioration of the [respiratory, cardiovascular and hematologic] system(s) required my full and direct attention, intervention and personal management. The aggregate critical care time was [35] minutes without overlap. Time includes spent on; [x] Data Review and interpretation [x] Patient assessment and monitoring of vital signs [x] Documentation [x] Medication orders and management Subjective Date of service: 11/06/21 Interval history: Follow up fro acute hypoxemic resp failure; Septic and cardiogenic shock; severe anemia; Patient seen and examined. Vitals, labs, medications, chart and imaging reviewed. Discussed with respiratory and nursing care staff. Decompensation overnight requiring intubation. On MVS: 20/350/+6/100% Currently on dopamine, levophed, vasopressin. Midazolam and Fentanyl Right femoral CVL Objective - Exam Narrative Exam: VITAL SIGNS: Reviewed. GENERAL: The patient appears normally developed, Orally intubated to MVS, no distress Vital signs as documented. Frail appearing elderly woman. HEAD: No signs of head trauma. EYES: Pupils are equal. Extraocular motions intact. NECK: No adenopathy, no JVD. CHEST: Decreased AE bialterally with rhonchi Chest wall device CARDIAC: Regular rate and rhythm. S1 and S2, without murmurs, gallops, or rubs. VASCULAR: No Edema. Peripheral pulses normal and equal in all extremities. ABDOMEN: Soft, non tender and non distended. No rebound or guarding, and no masses palpated. Bowel Sounds normal. MUSCULOSKELETAL: Good range of motion of all major joints. Extremities without clubbing, cyanosis or edema. NEUROLOGIC EXAM: Unable to assess, sedated SKIN: detail exam as documented in skin assessment Vital Signs - 12hr 11/05/21 11/05/21 11/05/21 20:11 20:21 20:31 Pulse Rate 120 H 121 H 123 H Respiratory 26 H 25 H 25 H Rate Blood Pressure 83/42 79/44 87/50 O2 Sat by Pulse 93 93 94 Oximetry 11/05/21 11/05/21 11/05/21 20:41 20:51 21:00 Pulse Rate 126 H 130 H 128 H Respiratory 27 H 20 21 Rate Blood Pressure 87/50 97/54 154/105 O2 Sat by Pulse 93 93 85 Oximetry 11/05/21 11/05/21 11/05/21 21:10 21:11 21:20 Pulse Rate 130 H 128 H Respiratory 26 H 26 H Rate Blood Pressure 154/105 82/54 O2 Sat by Pulse 92 86 87 Oximetry 11/05/21 11/05/21 11/05/21 21:31 21:45 22:01 Pulse Rate 126 H 127 H 112 H Respiratory 31 H 27 H 28 H Rate Blood Pressure 81/50 71/41 72/39 O2 Sat by Pulse 91 96 Oximetry 11/05/21 11/05/21 11/05/21 22:15 22:31 22:45 Pulse Rate 118 H 123 H 122 H Respiratory 28 H 30 H 31 H Rate Blood Pressure 84/50 85/44 78/47 O2 Sat by Pulse 97 94 93 Oximetry 11/05/21 11/05/21 11/05/21 22:57 23:01 23:11 Pulse Rate 121 H 120 H 120 H Respiratory 25 H 24 26 H Rate Blood Pressure 78/47 75/43 75/43 O2 Sat by Pulse 92 94 91 Oximetry 11/05/21 11/05/21 11/05/21 23:21 23:31 23:41 Pulse Rate 120 H 119 H 118 H Respiratory 29 H 22 26 H Rate Blood Pressure 77/41 73/42 73/42 O2 Sat by Pulse 91 91 91 Oximetry 11/05/21 11/06/21 11/06/21 23:51 00:01 00:11 Pulse Rate 117 H 117 H 117 H Respiratory 29 H 28 H 29 H Rate Blood Pressure 73/45 82/37 82/37 O2 Sat by Pulse 91 91 90 Oximetry 11/06/21 11/06/21 11/06/21 00:21 00:30 00:41 Pulse Rate 117 H 117 H 114 H Respiratory 30 H 27 H 35 H Rate Blood Pressure 80/39 134/47 75/33 O2 Sat by Pulse 90 100 Oximetry 11/06/21 11/06/21 11/06/21 00:51 01:01 01:11 Pulse Rate 108 H 117 H 121 H Respiratory 21 20 20 Rate Blood Pressure 69/33 79/46 102/43 O2 Sat by Pulse 74 L 99 71 L Oximetry 11/06/21 11/06/21 11/06/21 01:21 01:31 01:41 Pulse Rate 127 H 124 H 125 H Respiratory 21 18 20 Rate Blood Pressure 104/52 98/63 98/63 O2 Sat by Pulse 70 L 57 L 55 L Oximetry 11/06/21 11/06/21 11/06/21 01:51 02:01 02:11 Pulse Rate 126 H 124 H 123 H Respiratory 20 20 20 Rate Blood Pressure 97/59 101/60 101/60 O2 Sat by Pulse 40 L 86 87 Oximetry 11/06/21 11/06/21 11/06/21 02:31 02:45 03:01 Pulse Rate 122 H 126 H 128 H Respiratory 20 20 20 Rate Blood Pressure 98/52 106/62 97/54 O2 Sat by Pulse 80 L 82 L Oximetry 11/06/21 11/06/21 11/06/21 03:15 03:31 03:45 Pulse Rate 137 H 129 H 133 H Respiratory 28 H 22 34 H Rate Blood Pressure 59/32 79/47 177/51 O2 Sat by Pulse 84 86 83 L Oximetry 01/20/22 01/20/22 01/20/22 04:01 04:11 04:31 Pulse Rate 127 H 126 H 126 H Respiratory 22 20 23 Rate Blood Pressure 167/45 167/45 182/50 O2 Sat by Pulse 87 85 85 Oximetry 11/06/21 11/06/21 11/06/21 04:45 05:01 05:15 Pulse Rate 118 H 123 H 121 H Respiratory 21 19 25 H Rate Blood Pressure 170/44 178/47 157/43 O2 Sat by Pulse 86 85 89 Oximetry 11/06/21 11/06/21 11/06/21 05:31 05:45 06:01 Pulse Rate 116 H 118 H 116 H Respiratory 22 23 20 Rate Blood Pressure 149/35 155/48 136/44 O2 Sat by Pulse 96 92 100 Oximetry 11/06/21 11/06/21 11/06/21 06:15 06:31 06:45 Pulse Rate 118 H 116 H 117 H Respiratory 21 20 20 Rate Blood Pressure 159/50 134/47 148/52 O2 Sat by Pulse 100 91 96 Oximetry CBC and BMP: 11/06/21 15:50 11/06/21 15:50 ABG, PT/INR, D-dimer: ABG ABG pH 7.305 pH Units (7.350-7.450) L 11/06/21 05:50 ABG pCO2 32.4 mm Hg 11/06/21 05:50 ABG pO2 82.1 mm Hg (80.0-90.0) 11/06/21 05:50 ABG O2 Saturation 96.7 % (95.0-99.0) 11/06/21 05:50 PT/INR, D-dimer PT 18.6 Sec. (12.2-14.9) H 11/03/21 22:32 INR 1.40 (0.87-1.13) H 11/03/21 22:32 D-Dimer 1494.53 ng/mlDDU (0-234) H 11/05/21 06:11 Abnormal lab findings: Abnormal Labs 11/03/21 11/03/21 11/03/21 22:32 22:32 22:32 WBC 29.3 H RBC 2.93 L Hgb 6.1 L Hct 21.9 L MCV 75 L MCH 21 L MCHC 28 L RDW 19.7 H Seg Neuts % (Manual) 97.0 H Lymphocytes % (Manual) 3.0 L Seg Neutrophils # Man 28.4 H Lymphocytes # (Manual) 0.9 L Monocytes # (Manual) PT 18.6 H INR 1.40 H D-Dimer ABG pH ABG HCO3 ABG Base Excess ABG Hemoglobin Oxyhemoglobin Carbon Dioxide 20 L BUN 33 H Glucose 119 H POC Glucose Lactic Acid Calcium 8.3 L AST Alkaline Phosphatase Lactate Dehydrogenase Troponin T 0.035 H C-Reactive Protein NT-Pro-B Natriuret Pep Total Protein Albumin LDL Cholesterol Direct 34 L Crossmatch 11/03/21 11/03/21 11/03/21 22:32 22:32 23:57 WBC RBC Hgb Hct MCV MCH MCHC RDW Seg Neuts % (Manual) Lymphocytes % (Manual) Seg Neutrophils # Man Lymphocytes # (Manual) Monocytes # (Manual) PT INR D-Dimer ABG pH ABG HCO3 ABG Base Excess ABG Hemoglobin Oxyhemoglobin Carbon Dioxide BUN Glucose POC Glucose Lactic Acid 3.70 H* Calcium AST Alkaline Phosphatase 139 H Lactate Dehydrogenase Troponin T C-Reactive Protein NT-Pro-B Natriuret Pep 7895 H Total Protein Albumin 3.5 L LDL Cholesterol Direct Crossmatch See Detail 11/04/21 11/04/21 11/05/21 00:59 13:58 00:51 WBC 27.9 H RBC 3.28 L Hgb 7.3 L Hct 25.5 L MCV 78 L MCH 22 L MCHC 29 L RDW 19.1 H Seg Neuts % (Manual) 96.0 H Lymphocytes % (Manual) 2.0 L Seg Neutrophils # Man 26.8 H Lymphocytes # (Manual) 0.6 L Monocytes # (Manual) PT INR D-Dimer ABG pH ABG HCO3 ABG Base Excess ABG Hemoglobin Oxyhemoglobin Carbon Dioxide BUN Glucose POC Glucose Lactic Acid Calcium AST Alkaline Phosphatase Lactate Dehydrogenase Troponin T 0.051 H D 0.032 H D C-Reactive Protein NT-Pro-B Natriuret Pep Total Protein Albumin LDL Cholesterol Direct Crossmatch 11/05/21 11/05/21 11/05/21 06:11 06:11 06:11 WBC 31.8 H RBC 3.57 L Hgb 8.0 L Hct 27.7 L MCV 78 L MCH 22 L MCHC 29 L RDW 19.2 H Seg Neuts % (Manual) 91.0 H Lymphocytes % (Manual) 4.5 L Seg Neutrophils # Man 28.9 H Lymphocytes # (Manual) Monocytes # (Manual) 1.1 H PT INR D-Dimer 1494.53 H ABG pH ABG HCO3 ABG Base Excess ABG Hemoglobin Oxyhemoglobin Carbon Dioxide 19 L BUN 42 H Glucose 115 H POC Glucose Lactic Acid Calcium AST 43 H Alkaline Phosphatase Lactate Dehydrogenase 187 H Troponin T C-Reactive Protein 22.20 H NT-Pro-B Natriuret Pep Total Protein 6.0 L Albumin 3.2 L LDL Cholesterol Direct Crossmatch 11/05/21 11/05/21 11/06/21 06:11 12:15 00:30 WBC RBC Hgb Hct MCV MCH MCHC RDW Seg Neuts % (Manual) Lymphocytes % (Manual) Seg Neutrophils # Man Lymphocytes # (Manual) Monocytes # (Manual) PT INR D-Dimer ABG pH ABG HCO3 ABG Base Excess ABG Hemoglobin Oxyhemoglobin Carbon Dioxide BUN Glucose POC Glucose 113 H 69 L Lactic Acid Calcium AST Alkaline Phosphatase Lactate Dehydrogenase Troponin T 0.033 H C-Reactive Protein NT-Pro-B Natriuret Pep Total Protein Albumin LDL Cholesterol Direct Crossmatch 11/06/21 05:50 WBC RBC Hgb Hct MCV MCH MCHC RDW Seg Neuts % (Manual) Lymphocytes % (Manual) Seg Neutrophils # Man Lymphocytes # (Manual) Monocytes # (Manual) PT INR D-Dimer ABG pH 7.305 L ABG HCO3 15.8 L ABG Base Excess -9.6 L ABG Hemoglobin 8.6 L Oxyhemoglobin 94.6 L Carbon Dioxide BUN Glucose POC Glucose Lactic Acid Calcium AST Alkaline Phosphatase Lactate Dehydrogenase Troponin T C-Reactive Protein NT-Pro-B Natriuret Pep Total Protein Albumin LDL Cholesterol Direct Crossmatch Chest x-ray: image reviewed (Bilatral alveolra interstial infiltrates, bilateral effusions, ETT in position) Additional Studies: Echo 11/04/21 -LVEF 30-35%, mild diastolic dysfunction -RVSP 49 -Moderate MR -Pacemaker leads in place Allied health notes reviewed: RT
--- NOTE | 2021-11-06 08:39 | Progress Note ---
Assessment and Plan Assessment and plan: History of present illness: 81-year-old female with known history of diabetes mellitus, hypertension and arthritis brought to the emergency room via EMS today for shortness of breath which has been ongoing for the past 3 days. Patient has been having some cough and shortness of breath. According to patient's , patient has also been having a fever of about 102.2 F. Upon arrival of EMS patient was found to be tachypneic with O2 saturation of 76% on room air which later improved to 88% on nonrebreather. Disposition : ICU Hospital Course to date: 11/04/2021: Empiric therapy with iv levaquin/vancomycin. COVID PCR pending. Will consult ID. PCCM consulted, will follow recs. Hypotensive this AM, ordered bolus and fluids at 150 cc/hr. May require pressor support if bp does not improve. 11/05/2021: GBS on bcx +, currently on rocephin IV. Currently on bipap due to respiratory distress overnight. Worsening BL opacities on CXR. May be volume overload vs pneumonia. Unfortunately bp too low for lasix at this point. WIll continue levophed and bipap. Once able to tolerate, may do trial of albumin/lasix. Call attempt made to Niraj, no response. Will try again tomorrow to update. 11/06/2021: Decompensated overnight requiring intubation. CXR shows worsening interstitial infiltrates. Currenlty on dopamine, levophed, vasopressin. PICC line ordered. Advised RN to place gamble for I/O monitoring. Would benefit from diuresis but very volume overloaded. Prognosis guarded. Assessment and Plan: #Acute respiratory failure with hypoxia - now on bipap currently. - cxr shows worsening bl opacities, may be volume overloaded. - abx iv - work up as below - [facility] consultation #Septic shock POA - wbc: 29.3, LA 3.7, febrile, source pulmonary - hypotensive, fluid bolus, blood products...may require pressors if unr esponsive. - bcx, scx, ucx - empiric iv abx remains hypotensive, Initiate Levophed gtt #Group B strep bacteremia - 11/04 Bcx: 4/4 GBS Vancomycin/Levaquin discontinued, Rocephin continued, monitor for allergic reaction (that said risk is very low) - repeat blood cx 1/19 ordered #Bilateral pneumonia - bl opacities on cxr - scx #Acute microcytic anemia - hgb 6.1, mcv: 75 - ordered 1 unit prbc, repeat hgb improved. - trend h/h daily #Suspected COVID-19 virus infection - rt pcr negative #Advance care planning Disease education conducted, care plan discussed, diagnoses discussed, prognosis discussed, patient is full code, patient acknowledges understanding and agree with care plan, +30 minutes. The high probability of a clinically significant, sudden or life threatening deterioration of the [multi] system(s) required my full and direct attention, intervention and personal management. The aggregate critical care time was [60] minutes. This time is in addition to time spent performing reported procedures but includes the following: [x] Data Review and interpretation [x] Patient assessment and monitoring of vital signs [x] Documentation [x] Medication orders and management History Interval history: Decompensated overnight, requiring intubation. Hospitalist Physical - Physical exam Narrative exam: Physical Exam: VITAL SIGNS: Reviewed. GENERAL: The patient appears normally developed, Vital signs as documented. Frail appearing elderly woman. HEAD: No signs of head trauma. EYES: Pupils are equal. Extraocular motions intact. EARS: Hearing grossly intact. MOUTH: Oropharynx is normal. NECK: No adenopathy, no JVD. CHEST: Bl rhonchi CARDIAC: Regular rate and rhythm. S1 and S2, without murmurs, gallops, or rubs. VASCULAR: No Edema. Peripheral pulses normal and equal in all extremities. ABDOMEN: Soft, non tender and non distended. No rebound or guarding, and no masses palpated. Bowel Sounds normal. MUSCULOSKELETAL: Good range of motion of all major joints. Extremities without clubbing, cyanosis or edema. NEUROLOGIC EXAM: Alert and oriented x 4. no focal sensory or strength deficits. PSYCHIATRIC: anxious appearing SKIN: detail exam as documented in skin assessment - Constitutional Vitals: Temp Pulse Resp BP Pulse Ox 97.5 F L 117 H 20 148/52 96 11/05/21 17:00 11/06/21 06:45 11/06/21 06:45 11/06/21 06:45 11/06/21 06:45 General appearance: Present: no acute distress, well-nourished, other (Moderate pallor) HEART Score - HEART Score Troponin: Troponin T 0.033 ng/mL (0.00-0.029) H 11/05/21 06:11 Results - Labs CBC & Chem 7: 11/06/21 15:50 11/06/21 15:50 Labs: Laboratory Last Values WBC 31.8 K/mm3 (4.5-11.0) H 11/05/21 06:11 RBC 3.57 M/mm3 (3.65-5.03) L 11/05/21 06:11 Hgb 8.0 gm/dl (10.1-14.3) L 11/05/21 06:11 Hct 27.7 % (30.3-42.9) L 11/05/21 06:11 MCV 78 fl (79-97) L 11/05/21 06:11 MCH 22 pg (28-32) L 11/05/21 06:11 MCHC 29 % (30-34) L 11/05/21 06:11 RDW 19.2 % (13.2-15.2) H 11/05/21 06:11 Plt Count 268 K/mm3 (140-440) 11/05/21 06:11 Add Manual Diff Complete 11/05/21 06:11 Total Counted 200 11/05/21 06:11 Seg Neutrophils % Director Of Intelligence 11/05/21 06:11 Seg Neuts % (Manual) 91.0 % (40.0-70.0) H 11/05/21 06:11 Band Neutrophils % 1.0 % 11/05/21 06:11 Lymphocytes % (Manual) 4.5 % (13.4-35.0) L 11/05/21 06:11 Reactive Lymphs % (Man) 0 % 11/05/21 06:11 Monocytes % (Manual) 3.5 % (0.0-7.3) 11/05/21 06:11 Eosinophils % (Manual) 0 % (0.0-4.3) 11/05/21 06:11 Basophils % (Manual) 0 % (0.0-1.8) 11/05/21 06:11 Metamyelocytes % 0 % 11/05/21 06:11 Myelocytes % 0 % 11/05/21 06:11 Promyelocytes % 0 % 11/05/21 06:11 Blast Cells % 0 % 11/05/21 06:11 Nucleated RBC % Not Reportable 11/05/21 06:11 Seg Neutrophils # Man 28.9 K/mm3 (1.8-7.7) H 11/05/21 06:11 Band Neutrophils # 0.3 K/mm3 11/05/21 06:11 Lymphocytes # (Manual) 1.4 K/mm3 (1.2-5.4) 11/05/21 06:11 Abs React Lymphs (Man) 0.0 K/mm3 11/05/21 06:11 Monocytes # (Manual) 1.1 K/mm3 (0.0-0.8) H 11/05/21 06:11 Eosinophils # (Manual) 0.0 K/mm3 (0.0-0.4) 11/05/21 06:11 Basophils # (Manual) 0.0 K/mm3 (0.0-0.1) 11/05/21 06:11 Metamyelocytes # 0.0 K/mm3 11/05/21 06:11 Myelocytes # 0.0 K/mm3 11/05/21 06:11 Promyelocytes # 0.0 K/mm3 11/05/21 06:11 Blast Cells # 0.0 K/mm3 11/05/21 06:11 WBC Morphology Not Reportable 11/05/21 06:11 Hypersegmented Neuts Not Reportable 11/05/21 06:11 Hyposegmented Neuts Not Reportable 11/05/21 06:11 Hypogranular Neuts Not Reportable 11/05/21 06:11 Smudge Cells Not Reportable 11/05/21 06:11 Toxic Granulation 1+ 11/05/21 06:11 Toxic Vacuolation Not Reportable 11/05/21 06:11 Dohle Bodies Not Reportable 11/05/21 06:11 Pelger-Huet Anomaly Not Reportable 11/05/21 06:11 Irina Rods Not Reportable 11/05/21 06:11 Platelet Estimate Consistent w auto 11/05/21 06:11 Clumped Platelets Not Reportable 11/05/21 06:11 Plt Clumps, EDTA Not Reportable 11/05/21 06:11 Large Platelets Few 11/05/21 06:11 Giant Platelets Not Reportable 11/05/21 06:11 Platelet Satelliting Not Reportable 11/05/21 06:11 Plt Morphology Comment Not Reportable 11/05/21 06:11 RBC Morphology Not Reportable 11/05/21 06:11 Dimorphic RBCs Not Reportable 11/05/21 06:11 Polychromasia Not Reportable 11/05/21 06:11 Hypochromasia 2+ 11/05/21 06:11 Poikilocytosis Not Reportable 11/05/21 06:11 Anisocytosis 1+ 11/05/21 06:11 Microcytosis Not Reportable 11/05/21 06:11 Macrocytosis Not Reportable 11/05/21 06:11 Spherocytes Not Reportable 11/05/21 06:11 Pappenheimer Bodies Not Reportable 11/05/21 06:11 Sickle Cells Not Reportable 11/05/21 06:11 Target Cells Not Reportable 11/05/21 06:11 Tear Drop Cells Not Reportable 11/05/21 06:11 Ovalocytes Not Reportable 11/05/21 06:11 Helmet Cells Not Reportable 11/05/21 06:11 Odonnell-Simla Bodies Not Reportable 11/05/21 06:11 [place] Rings Not Reportable 11/05/21 06:11 [place] Cells Not Reportable 11/05/21 06:11 Bite Cells Not Reportable 11/05/21 06:11 Crenated Cell Not Reportable 11/05/21 06:11 Elliptocytes Not Reportable 11/05/21 06:11 Acanthocytes (Spur) Not Reportable 11/05/21 06:11 Rouleaux Not Reportable 11/05/21 06:11 Hemoglobin C Crystals Not Reportable 11/05/21 06:11 Schistocytes Not Reportable 11/05/21 06:11 Malaria parasites Not Reportable 11/05/21 06:11 Godfrey Bodies Not Reportable 11/05/21 06:11 Hem Pathologist Commnt No 11/05/21 06:11 PT 18.6 Sec. (12.2-14.9) H 11/03/21 22:32 INR 1.40 (0.87-1.13) H 11/03/21 22:32 APTT 28.9 Sec. (24.2-36.6) 11/03/21 22:32 D-Dimer 1494.53 ng/mlDDU (0-234) H 11/05/21 06:11 ABG pH 7.305 pH Units (7.350-7.450) L 11/06/21 05:50 ABG pCO2 32.4 mm Hg 11/06/21 05:50 ABG pO2 82.1 mm Hg (80.0-90.0) 11/06/21 05:50 ABG HCO3 15.8 mmol/L (20.0-26.0) L 11/06/21 05:50 ABG O2 Saturation 96.7 % (95.0-99.0) 11/06/21 05:50 ABG O2 Content 11.6 (0.0-44) 11/06/21 05:50 ABG Base Excess -9.6 mmol/L (-2.0-3.0) L 11/06/21 05:50 ABG Hemoglobin 8.6 gm/dl (12.0-16.0) L 11/06/21 05:50 ABG Carboxyhemoglobin 1.7 % (0.0-5.0) 11/06/21 05:50 ABG Methemoglobin 0.5 % (0.0-1.5) 11/06/21 05:50 Oxyhemoglobin 94.6 % (95.0-99.0) L 11/06/21 05:50 FiO2 100 % 11/06/21 05:50 Sodium 139 mmol/L (137-145) 11/05/21 06:11 Potassium 4.5 mmol/L (3.6-5.0) 11/05/21 06:11 Chloride 105.4 mmol/L (98-107) 11/05/21 06:11 Carbon Dioxide 19 mmol/L (22-30) L 11/05/21 06:11 Anion Gap 19 mmol/L 11/05/21 06:11 BUN 42 mg/dL (7-17) H 11/05/21 06:11 Creatinine 1.1 mg/dL (0.6-1.2) 11/05/21 06:11 Estimated GFR 47 ml/min 11/05/21 06:11 BUN/Creatinine Ratio 38 % 11/05/21 06:11 Glucose 115 mg/dL (65-100) H 11/05/21 06:11 POC Glucose 69 mg/dL (70-105) L 11/06/21 00:30 Lactic Acid 3.70 mmol/L (0.7-2.0) H* 11/03/21 22:32 Calcium 8.9 mg/dL (8.4-10.2) 11/05/21 06:11 Ferritin 52.6 ng/mL (10.0-200.0) 11/05/21 06:11 Total Bilirubin 0.30 mg/dL (0.1-1.2) 11/05/21 06:11 Direct Bilirubin < 0.2 mg/dL (0-0.2) 11/03/21 22:32 Indirect Bilirubin 0.2 mg/dL 11/03/21 22:32 AST 43 units/L (5-40) H 11/05/21 06:11 ALT 23 units/L (7-56) 11/05/21 06:11 Alkaline Phosphatase 117 units/L (35-129) 11/05/21 06:11 Lactate Dehydrogenase 187 units/L (91-180) H 11/05/21 06:11 Troponin T 0.033 ng/mL (0.00-0.029) H 11/05/21 06:11 C-Reactive Protein 22.20 mg/dL (0.00-1.30) H 11/05/21 06:11 NT-Pro-B Natriuret Pep 7895 pg/mL (0-900) H 11/03/21 22:32 Total Protein 6.0 g/dL (6.3-8.2) L 11/05/21 06:11 Albumin 3.2 g/dL (3.9-5) L 11/05/21 06:11 Albumin/Globulin Ratio 1.1 % 11/05/21 06:11 Triglycerides 66 mg/dL (2-149) 11/03/21 22:32 Cholesterol 80 mg/dL (50-199) 11/03/21 22:32 LDL Cholesterol Direct 34 mg/dL (50-130) L 11/03/21 22:32 HDL Cholesterol 42 mg/dL (40-59) 11/03/21 22:32 Cholesterol/HDL Ratio 1.90 % 11/03/21 22:32 Coronavirus (PCR) Negative (Negative) 11/04/21 Unknown Blood Type O POSITIVE 11/03/21 23:57 Antibody Screen Negative 11/03/21 23:57 Crossmatch See Detail 11/03/21 23:57 Microbiology: Microbiology 11/04/21 15:03 Peripheral/Venous Blood Culture - Preliminary NO GROWTH AFTER 24 HOURS 11/04/21 15:03 Peripheral/Venous Blood Culture - Preliminary NO GROWTH AFTER 24 HOURS 11/03/21 22:32 Peripheral/Venous Blood Culture - Final Beta Hemolytic Strep Group B 11/03/21 22:57 Peripheral/Venous Blood Culture - Preliminary Beta Hemolytic Strep Group B Active Medications - Current Medications Current Medications: Generic Name Dose Route Start Last Admin Trade Name Freq PRN Reason Stop Dose Admin Acetaminophen 650 mg 11/04/21 02:03 11/05/21 00:04 Acetaminophen 325 Mg Tab PO 650 mg Q6H PRN Administration Pain MILD(1-3)/Fever >100.5/RODRIGUEZ Hydrocodone Bitart/Acetaminophen 1 each 11/05/21 00:59 11/05/21 08:35 Hydrocodone/Acetaminophen 10-325mg Tab PO 1 each Q6H PRN Administration Pain, Moderate (4-6) Buspirone HCl 7.5 mg 11/04/21 23:45 11/05/21 23:39 Buspirone 5 Mg Tab PO Not Given BID YOSSI Dextrose 50 ml 11/04/21 02:03 Dextrose 50% In Water (25gm) 50 Ml Syringe IV Q30MIN PRN Hypoglycemia Protocol Famotidine 20 mg 11/06/21 10:00 Famotidine 20 Mg/2 Ml Inj IV DAILY YOSSI Heparin Sodium (Porcine) 5,000 unit 11/04/21 06:00 11/05/21 23:40 Heparin 5,000 Unit/1 Ml Vial SUB-Q Not Given Q8HR YOSSI Hydrophilic Ointment 1 applic 11/06/21 04:02 Lip Therapy Vaseline TP Q2HR PRN Dry Lips Ceftriaxone Sodium 2 gm in 100 mls @ 200 mls/hr 11/04/21 15:00 11/05/21 15:02 Rocephin/Ns 2 Gm/100 Ml IV Infused Q24HR YOSSI Infusion Protocol NORepinephrine/NS 8 MG-250 ML 8 mg in 250 mls @ 3.75 mls/hr 11/05/21 09:00 11/05/21 21:52 Norepinephrine/Ns 8 Mg-250 Ml (Double Conc) IV 14 mcg/min TITRATE YOSSI 26.25 mls/hr Administration Protocol 2 MCG/MIN Vasopressin 20 unit/ Sodium 101 mls @ 9.09 mls/hr 11/05/21 23:00 11/06/21 01:00 Chloride IV 0.03 units/min TITR YOSSI 9.09 mls/hr Administration Protocol 0.03 UNITS/MIN Dopamine HCl/Dextrose 800 mg in 250 mls @ 2.211 mls/hr 11/06/21 00:32 11/06/21 01:38 Dopamine 800 Mg/D5w 250ml IV 11/10/21 17:36 20 mcg/kg/min TITR ONE 22.113 mls/hr Administration Protocol 2 MCG/KG/MIN Midazolam HCl 100 mg/ Sodium 100 mls @ 2 mls/hr 11/06/21 05:00 Chloride IV TITR COUNTS INCLUDE 234 BEDS AT THE [facility] Protocol 2 MG/HR Insulin Human Lispro 0 unit 11/04/21 07:30 11/05/21 22:18 Insulin Lispro 100 Unit/Ml SUB-Q Not Given ACHS COUNTS INCLUDE 234 BEDS AT THE [facility] Protocol Levothyroxine Sodium 125 mcg 11/05/21 07:00 11/06/21 06:58 Levothyroxine 125 Mcg Tab PO Not Given DAILY@0600 COUNTS INCLUDE 234 BEDS AT THE [facility] Magnesium Hydroxide 30 ml 11/04/21 02:03 Magnesium Hydroxide (Mom) Oral Liqd Udc PO Q4H PRN Constipation Midazolam HCl 2 mg 11/06/21 04:02 11/06/21 04:00 Midazolam 2 Mg/2 Ml Inj IV 2 mg Q10MIN PRN Administration Sedation Multi-Ingred Cream/Lotion/Oil/Oint 1 applic 11/06/21 04:02 Mineral Oil/Petrolatum, White Ophth Oint 3.5 Gm OU Q4HR PRN Dry Eye(s) Ondansetron HCl 4 mg 11/04/21 02:03 11/05/21 15:48 Ondansetron 4 Mg/2 Ml Inj IV 4 mg Q8H PRN Administration Nausea And Vomiting Senna/Docusate Sodium 1 tab 11/06/21 10:00 Sennosides/Docusate Sodium 8.6/50 Mg Tab FEEDTUBE BID YOSSI Sodium Chloride 10 ml 11/04/21 10:00 11/05/21 23:39 Sodium Chloride 0.9% 10 Ml Flush Syringe IV 10 ml BID YOSSI Administration Sodium Chloride 10 ml 11/04/21 02:03 Sodium Chloride 0.9% 10 Ml Flush Syringe IV PRN PRN LINE FLUSH Nutrition/Malnutrition Assess - Dietary Evaluation Nutrition/Malnutrition Findings: Nutrition Notes Start: 11/04/21 17:16 Freq: Status: Active Protocol: Document 11/04/21 17:16 ISABELL (Rec: 11/04/21 17:22 ISABELL [id number]) Nutrition Notes Need for Assessment generated from: MD Order,Education Initial or Follow up Brief Note Current Diagnosis Diabetes,Hypertension, Respiratory Failure Other Pertinent Diagnosis COVID-19 pui, Bilateral Pneumonia, Acute Anemia. Current Diet Cardiac/Consistent Carbohydrates Diet (since B ). Height 5 ft Weight 58.967 kg [place] Body Weight (kg) 45.45 BMI 25.4 Weight change and time frame None reported at admission. Weight Status Appropriate Subjective/Other Information RD consult for nutrition education. No report available on PO intake of meals at the time. Pt still on ED, not a candidate for Nutrition Education at the time, will assess feasibility on F/U. Percent of energy/protein needs met: Prescribed Cardiac/Consistent Carbohydrates Diet provides for energy/protein needs (1, 977 Kcal/86 g) during LOS. Nutrition Intervention Follow-Up By: 11/11/21 Additional Comments Nutrition education will be provided on F/U if feasible. Continue monitoring food tolerance, %PO intake of meals , and BM.
[2021-11-06] MEDS: busPIRone 5 MG TAB PO SCH ×2 (10:00→23:38)
[2021-11-06] MEDS ORDERED: FAMOTIDINE 20 MG/2 ML INJ IV SCH (10:00)
[2021-11-06] MEDS: INSULIN LISPRO 100 UNIT/ML SUB-Q SCH ×3 (12:12→18:46)
[2021-11-06] MEDS: cefTRIAXone/NS 2 GM/100 ML 2 GM/100 ML BAG IV SCH (12:12)
[2021-11-06] MEDS: SENNOSIDES/DOCUSATE SODIUM 8.6/50 MG TAB FEEDTUBE SCH ×2 (12:12→23:39)
[2021-11-06] MEDS: FAMOTIDINE 20 MG/2 ML INJ IV SCH (12:12)
[2021-11-06] MEDS: NORepinephrine/NS 8 MG-250 ML 8 MG/250 ML INFUS..BTL IV SCH (14:00)
--- NOTE | 2021-11-06 14:12 | Progress Note ---
Assessment and Plan Cultures: SARS CoV2 PCR: negative 11/03/2021 blood culture: Group B streptococcus 11/04/2021 blood culture: no growth A/P: 81-year-old female with diabetes mellitus, hypertension, arthritis was admitted with shortness of breath. She was also having fever: #Severe sepsis with shock, secondary to bilateral pneumonia: likely from Group B Strep. COVID-19 negative #Group B Strep bacteremia: Likely secondary to above, no other source identified. Does have indwelling cardiac device, per patient it is a pacemaker. TTE showed no valvular or lead vegetations #Acute hypoxic respiratory failure: Secondary to above. Intubated, on the vent. Recs: -continue Ceftriaxone 2 gm daily -added IV Clindamycin for synergy x 3 days -overall guarded prognosis Gumaro Baires MD, FACP, [facility] O: [phone] F: [phone] Subjective Date of service: 11/06/21 Interval history: No fever. Now intubated, on pressors. Objective - Exam Narrative Exam: Physical Exam: Constitutional: sedated, intubated, on the vent Head, Ears, Nose: Normocephalic, atraumatic. External ears, nose normal Eyes: Conjunctivae/corneas clear. No icterus. No ptosis. Neck: intubated Oral: intubated Cardiovascular: S1, S2 + Respiratory: AE fair bilaterally GI: Soft, bowel sounds + Musculoskeletal: trace pedal edema Skin: No rash or abscess Hem/Lymphatic: No palpable cervical or supraclavicular nodes. No lymphangitis Psych: no agitation Neurological: sedated, intubated, on the vent, exam limited - Constitutional Vitals: Vital Signs Temp Pulse Resp BP Pulse Ox 97.5 F L 95 H 20 94/59 100 11/05/21 17:00 11/06/21 13:16 11/06/21 12:01 11/06/21 12:01 11/06/21 13:16 Temperature -Last 24 Hours Temperature 97.5 F - Labs CBC & Chem 7: 11/05/21 06:11 11/05/21 06:11 Labs: Abnormal lab results 11/06/21 11/06/21 Range/Units 00:30 05:50 ABG pH 7.305 L (7.350-7.450) pH Units ABG HCO3 15.8 L (20.0-26.0) mmol/L ABG Base Excess -9.6 L (-2.0-3.0) mmol/L ABG Hemoglobin 8.6 L (12.0-16.0) gm/dl Oxyhemoglobin 94.6 L (95.0-99.0) % POC Glucose 69 L (70-105) mg/dL - Imaging and cardiology Chest x-ray: report reviewed, image reviewed (ET tube +, PPM +)
--- NOTE | 2021-11-06 14:25 | XRay Report ---
CHEST - 1 VIEW 1354 hours INDICATION: chest pain COMPARISON: Earlier today at 0102 hours FINDINGS: Support devices: Stable support device positioning. Heart: Stable mild cardiomegaly Lungs/pleura: There is rotation to the left, but pulmonary venous congestion and bilateral pleural e ffusions appear decreased by 50%. No pneumothorax. Additional findings: None. IMPRESSION: Improvement in CHF/volume overload as described. No new acute process. Signer Name: Job López Jr, MD Signed: 11/06/2021 2:20 PM Workstation Name: [id number]
[2021-11-06 16:19] LABS: Mean Corpuscular HGB Conc 29 % (30-34); Mean Corpuscular Volume 76 fl (79-97); Platelet Count 234 K/mm3 (140-440); Red Blood Count 3.62 M/mm3 (3.65-5.03); Red Cell Distribution Width 19.6 % (13.2-15.2)
[2021-11-06 16:23] LABS: Hematocrit 27.5 % (30.3-42.9)
--- NOTE | 2021-11-06 16:40 | Cat Scan Report ---
CT head/brain wo con INDICATION / CLINICAL INFORMATION: 81 years Female; altered mentation. TECHNIQUE: Routine CT head without contrast. All CT scans at this location are performed using CT dos e reduction for ALARA by means of automated exposure control. COMPARISON: None. FINDINGS: BRAIN / INTRACRANIAL CONTENTS: There is extensive cerebral white matter disease most consistent with microvascular angiopathy. There is moderate cerebral atrophy with associated mild prominence of the v entricular system. The motion degrades the image quality in this intubated patient. However, there is no clear CT evidence of acute intracranial hemorrhage or significant mass effect. ORBITS: No significant abnormality of visualized orbits. SINUSES / MASTOIDS: No significant abnormality in the visualized paranasal sinuses or mastoid air donavan ls. CRANIOCERVICAL JUNCTION: No significant abnormality. ADDITIONAL FINDINGS: None. IMPRESSION: 1. There is extensive microvascular angiopathy and moderate cerebral atrophy as described without benito ar CT evidence of acute intracranial hemorrhage. Signer Name: Phil Kong MD Signed: 11/06/2021 4:35 PM Workstation Name: [id number]
[2021-11-06 17:11] LABS: Albumin 2.6 g/dL (3.9-5); Calcium 7.9 mg/dL (8.4-10.2)
[2021-11-06 18:11] LABS: Anisocytosis 1+; Basophils % (Manual) 0 % (0.0-1.8); Eosinophils % (Manual) 0 % (0.0-4.3); Hypochromasia 2+; Platelet Estimate Consistent w Auto; Total Cells Counted 100
[2021-11-07] MEDS: INSULIN LISPRO 100 UNIT/ML SUB-Q SCH ×4 (04:47→18:02)
[2021-11-07 05:11] LABS: ABG Base Excess -5.9 mmol/L (-2.0-3.0); ABG HCO3 18.1 mmol/L (20.0-26.0); ABG Methemoglobin 0.5 % (0.0-1.5); ABG Oxygen Saturation 99.5 % (95.0-99.0); ABG PCO2 29.7 mm Hg; ABG PH 7.404 pH Units (7.350-7.450)
[2021-11-07 05:13] LABS: ABG PO2 296.9 mm Hg (80.0-90.0)
[2021-11-07] MEDS: HEPARIN 5,000 UNIT/1 ML VIAL SUB-Q SCH ×2 (09:29→15:58)
[2021-11-07] MEDS: LEVOTHYROXINE 125 MCG TAB PO SCH (09:29)
[2021-11-07] MEDS: FAMOTIDINE 20 MG/2 ML INJ IV SCH (10:36)
[2021-11-07] MEDS: SENNOSIDES/DOCUSATE SODIUM 8.6/50 MG TAB FEEDTUBE SCH (10:41)
[2021-11-07] MEDS: cefTRIAXone/NS 2 GM/100 ML 2 GM/100 ML BAG IV SCH (10:41)
[2021-11-07] MEDS: busPIRone 5 MG TAB PO SCH (10:42)
--- NOTE | 2021-11-07 11:54 | Progress Note ---
Assessment and Plan Cultures: SARS CoV2 PCR: negative 11/03/2021 blood culture: Group B streptococcus 11/04/2021 blood culture: no growth A/P: 81-year-old female with diabetes mellitus, hypertension, arthritis was admitted with shortness of breath. She was also having fever: #Severe sepsis with shock, secondary to bilateral pneumonia: likely from Group B Strep. COVID-19 negative #Group B Strep bacteremia: Likely secondary to above, no other source identified, other possibility is mild lower extremity cellulitis. Does have indwelling cardiac device, per patient it is a pacemaker. TTE showed no valvular or lead vegetations #Acute hypoxic respiratory failure: Secondary to above. Intubated, on the vent. Recs: -continue Ceftriaxone 2 gm daily -continue IV Clindamycin for synergy x 3 days, D2 -overall guarded prognosis Gumaro Baires MD, FACP, [facility] O: [phone] F: [phone] Subjective Date of service: 11/07/21 Interval history: Afebrile. Remains intubated, on the vent. Sedated. On pressors: Levophed. Objective - Exam Narrative Exam: Physical Exam: Constitutional: sedated, intubated, on the vent Head, Ears, Nose: Normocephalic, atraumatic. External ears, nose normal Eyes: Conjunctivae/corneas clear. No icterus. No ptosis. Neck: intubated Oral: intubated Cardiovascular: S1, S2 + Respiratory: AE fair bilaterally GI: Soft, bowel sounds + Musculoskeletal: trace pedal edema Skin: No rash or abscess Hem/Lymphatic: No palpable cervical or supraclavicular nodes. No lymphangitis Psych: no agitation Neurological: sedated, intubated, on the vent, exam limited - Constitutional Vitals: Vital Signs Temp Pulse Resp BP Pulse Ox 99.0 F 92 H 20 140/61 100 11/07/21 00:16 11/07/21 10:46 11/07/21 10:46 11/07/21 10:46 11/07/21 10:46 Temperature -Last 24 Hours Temperature 99.0 F - Labs CBC & Chem 7: 11/06/21 15:50 11/06/21 15:50 Labs: Abnormal lab results 01/11/06/21 11/07/21 Range/Units 15:50 15:50 03:30 WBC 25.5 H (4.5-11.0) K/mm3 RBC 3.62 L (3.65-5.03) M/mm3 Hgb 8.0 L (10.1-14.3) gm/dl Hct 27.5 L (30.3-42.9) % MCV 76 L (79-97) fl MCH 22 L (28-32) pg MCHC 29 L (30-34) % RDW 19.6 H (13.2-15.2) % Seg Neuts % (Manual) 92.0 H (40.0-70.0) % Lymphocytes % (Manual) 5.0 L (13.4-35.0) % Seg Neutrophils # Man 23.5 H (1.8-7.7) K/mm3 ABG pO2 (80.0-90.0) mm Hg ABG HCO3 (20.0-26.0) mmol/L ABG O2 Saturation (95.0-99.0) % ABG Base Excess (-2.0-3.0) mmol/L ABG Hemoglobin (12.0-16.0) gm/dl Chloride 113.9 H (98-107) mmol/L Carbon Dioxide 17 L (22-30) mmol/L BUN 56 H (7-17) mg/dL Glucose 114 H (65-100) mg/dL POC Glucose 106 H (70-105) mg/dL Calcium 7.9 L (8.4-10.2) mg/dL AST 1410 H (5-40) units/L ALT 934 H (7-56) units/L Alkaline Phosphatase 142 H (35-129) units/L Total Protein 5.0 L (6.3-8.2) g/dL Albumin 2.6 L (3.9-5) g/dL 11/07/21 11/07/21 Range/Units 04:50 08:07 WBC (4.5-11.0) K/mm3 RBC (3.65-5.03) M/mm3 Hgb (10.1-14.3) gm/dl Hct (30.3-42.9) % MCV (79-97) fl MCH (28-32) pg MCHC (30-34) % RDW (13.2-15.2) % Seg Neuts % (Manual) (40.0-70.0) % Lymphocytes % (Manual) (13.4-35.0) % Seg Neutrophils # Man (1.8-7.7) K/mm3 ABG pO2 296.9 H (80.0-90.0) mm Hg ABG HCO3 18.1 L (20.0-26.0) mmol/L ABG O2 Saturation 99.5 H (95.0-99.0) % ABG Base Excess -5.9 L (-2.0-3.0) mmol/L ABG Hemoglobin 7.6 L (12.0-16.0) gm/dl Chloride (98-107) mmol/L Carbon Dioxide (22-30) mmol/L BUN (7-17) mg/dL Glucose (65-100) mg/dL POC Glucose 108 H (70-105) mg/dL Calcium (8.4-10.2) mg/dL AST (5-40) units/L ALT (7-56) units/L Alkaline Phosphatase (35-129) units/L Total Protein (6.3-8.2) g/dL Albumin (3.9-5) g/dL
--- NOTE | 2021-11-07 13:01 | Progress Note ---
Assessment and Plan Severe Sepsis POA vs septic shock- 11/03/2021 blood culture: 2 sets positive for GPC Acute respiratory failure with hypoxia, now on MVS Acute microcytic anemia Bilateral pneumonia Left pleural effusion Cardiomyopathy EF 30-35% Moderate pulmonary HTN RVSP 49 IR for ultrasound guided thoracentesis of left pleural effusion- this will help improve respiratory mechanics. Place PICC line and discontinue the femoral CVL Wean vasopressor support for MAP>65 Stop Midazolam and use fentanyl Antibiotics per ID Enteric nutritional support Monitor electrolytes and address as indicated Conservative fluid management as tolerated by renal function and hemodynamics. Once she if off Levophed, negative fluid balance can be achieved with intermittent diuretic therapy ABG and CXR in am - continue to titrate supplemental oxygen to keep SPO2 88-90% - VAP bundle addressed, aspiration precautions - continue bronchodilators with pulmonary hygiene per RT - avoid nephrotoxins, renally dose all medications - Accuchecks with glycemic control per SSI (While critically ill target blood glucose of 140-180 mg/dL; avoid hypoglycemia) - sedation prn for target RASS 0 to -1 - continue to avoid benzodiazepines, reduce the possibility of delirium -antibiotics per ID- BCx positive for beta hemolytic strep, follow up cultures no growth to date - prn analgesia per CPOT score - Maintenance of sleep-wake cycle, avoid delirium - Stress and VTE prophylaxis - mobility, off loading and frequent turning to prevent pressure ulcer - Monitor hemodynamics closely - continue other care per attending / other consultants COVID SPECIFIC INTERVENTIONS - Negative CONDITION: CRITICAL PROGNOSIS: GUARDED CODE STATUS: FULL CODE The high probability of a clinically significant, sudden or life-threatening deterioration of the [respiratory, cardiovascular and hematologic] system(s) required my full and direct attention, intervention and personal management. The aggregate critical care time was [35] minutes without overlap. Time includes spent on; [x] Data Review and interpretation [x] Patient assessment and monitoring of vital signs [x] Documentation [x] Medication orders and management Subjective Date of service: 11/07/21 Interval history: Follow up fro acute hypoxemic resp failure; Septic and cardiogenic shock; severe anemia; Patient seen and examined. Vitals, labs, medications, chart and imaging reviewed. Discussed with respiratory and nursing care staff. Remains on MVS; 20/350/+6/100% Midazolam and Fentanyl Right femoral CVL On Norepinephrine Objective Vital Signs - 12hr 11/07/21 11/07/21 11/07/21 01:12 01:31 02:01 Pulse Rate 91 H 87 Respiratory 20 20 20 Rate Blood Pressure 141/71 127/62 Blood Pressure [Left] O2 Sat by Pulse 98 100 100 Oximetry 11/07/21 11/07/21 11/07/21 02:31 03:01 03:31 Pulse Rate 87 90 89 Respiratory 20 20 19 Rate Blood Pressure 128/64 131/65 131/65 Blood Pressure [Left] O2 Sat by Pulse 100 100 100 Oximetry 11/07/21 11/07/21 11/07/21 03:51 04:01 04:31 Pulse Rate 91 H 89 89 Respiratory 20 20 Rate Blood Pressure 137/66 135/67 121/61 Blood Pressure [Left] O2 Sat by Pulse 98 100 100 Oximetry 11/07/21 11/07/21 11/07/21 05:01 05:31 06:01 Pulse Rate 90 89 90 Respiratory 20 20 20 Rate Blood Pressure 136/70 135/65 132/66 Blood Pressure [Left] O2 Sat by Pulse 100 100 100 Oximetry 11/07/21 11/07/21 11/07/21 06:31 07:01 07:31 Pulse Rate 90 94 H 98 H Respiratory 20 17 20 Rate Blood Pressure 138/66 136/63 141/67 Blood Pressure [Left] O2 Sat by Pulse 100 100 100 Oximetry 11/07/21 11/07/21 11/07/21 08:01 08:30 09:00 Pulse Rate 94 H 92 H 92 H Respiratory 24 18 Rate Blood Pressure 127/65 140/65 136/57 Blood Pressure [Left] O2 Sat by Pulse 100 100 100 Oximetry 11/07/21 11/07/21 11/07/21 09:01 09:31 10:01 Pulse Rate 91 H 92 H 92 H Respiratory 17 17 18 Rate Blood Pressure 133/62 136/62 133/62 Blood Pressure [Left] O2 Sat by Pulse 100 100 100 Oximetry 11/07/21 11/07/21 11/07/21 10:31 10:46 11:01 Pulse Rate 92 H 92 H 87 Respiratory 17 20 19 Rate Blood Pressure 138/62 117/50 Blood Pressure 140/61 [Left] O2 Sat by Pulse 100 100 100 Oximetry 11/07/21 11/07/21 11:31 12:01 Pulse Rate 87 86 Respiratory 19 17 Rate Blood Pressure 117/53 116/50 Blood Pressure [Left] O2 Sat by Pulse 100 100 Oximetry Constitutional: no acute distress, asleep, other (RASS-3) Eyes: non-icteric ENT: oropharynx dry Neck: supple, no lymphadenopathy, no JVD Effort: mildly labored Ascultation: Bilateral: diminished breath sounds, rhonchi Cardiovascular: regular rate and rhythm, other (Tachycardia, S1,S2) Gastrointestinal: normoactive bowel sounds, soft, non-tender, non-distended Extremities: pulses normal, edema (bilateral upper extemites- especially her paredes nds) Neurologic: pupils equal and round, other (RASS-3) CBC and BMP: 11/10/21 04:00 11/10/21 04:00 ABG, PT/INR, D-dimer: ABG ABG pH 7.404 pH Units (7.350-7.450) 11/07/21 04:50 ABG pCO2 29.7 mm Hg 11/07/21 04:50 ABG pO2 296.9 mm Hg (80.0-90.0) H 11/07/21 04:50 ABG O2 Saturation 99.5 % (95.0-99.0) H 11/07/21 04:50 PT/INR, D-dimer PT 18.6 Sec. (12.2-14.9) H 11/03/21 22:32 INR 1.40 (0.87-1.13) H 11/03/21 22:32 D-Dimer 1494.53 ng/mlDDU (0-234) H 11/05/21 06:11 Abnormal lab findings: Abnormal Labs 11/03/21 11/03/21 11/03/21 22:32 22:32 22:32 WBC 29.3 H RBC 2.93 L Hgb 6.1 L Hct 21.9 L MCV 75 L MCH 21 L MCHC 28 L RDW 19.7 H Seg Neuts % (Manual) 97.0 H Lymphocytes % (Manual) 3.0 L Seg Neutrophils # Man 28.4 H Lymphocytes # (Manual) 0.9 L Monocytes # (Manual) PT 18.6 H INR 1.40 H D-Dimer ABG pH ABG pO2 ABG HCO3 ABG O2 Saturation ABG Base Excess ABG Hemoglobin Oxyhemoglobin Chloride Carbon Dioxide 20 L BUN 33 H Glucose 119 H POC Glucose Lactic Acid Calcium 8.3 L AST ALT Alkaline Phosphatase Lactate Dehydrogenase Troponin T 0.035 H C-Reactive Protein NT-Pro-B Natriuret Pep Total Protein Albumin LDL Cholesterol Direct 34 L Crossmatch 11/03/21 11/03/21 11/03/21 22:32 22:32 23:57 WBC RBC Hgb Hct MCV MCH MCHC RDW Seg Neuts % (Manual) Lymphocytes % (Manual) Seg Neutrophils # Man Lymphocytes # (Manual) Monocytes # (Manual) PT INR D-Dimer ABG pH ABG pO2 ABG HCO3 ABG O2 Saturation ABG Base Excess ABG Hemoglobin Oxyhemoglobin Chloride Carbon Dioxide BUN Glucose POC Glucose Lactic Acid 3.70 H* Calcium AST ALT Alkaline Phosphatase 139 H Lactate Dehydrogenase Troponin T C-Reactive Protein NT-Pro-B Natriuret Pep 7895 H Total Protein Albumin 3.5 L LDL Cholesterol Direct Crossmatch See Detail 11/04/21 11/04/21 11/05/21 00:59 13:58 00:51 WBC 27.9 H RBC 3.28 L Hgb 7.3 L Hct 25.5 L MCV 78 L MCH 22 L MCHC 29 L RDW 19.1 H Seg Neuts % (Manual) 96.0 H Lymphocytes % (Manual) 2.0 L Seg Neutrophils # Man 26.8 H Lymphocytes # (Manual) 0.6 L Monocytes # (Manual) PT INR D-Dimer ABG pH ABG pO2 ABG HCO3 ABG O2 Saturation ABG Base Excess ABG Hemoglobin Oxyhemoglobin Chloride Carbon Dioxide BUN Glucose POC Glucose Lactic Acid Calcium AST ALT Alkaline Phosphatase Lactate Dehydrogenase Troponin T 0.051 H D 0.032 H D C-Reactive Protein NT-Pro-B Natriuret Pep Total Protein Albumin LDL Cholesterol Direct Crossmatch 11/05/21 11/05/21 11/05/21 06:11 06:11 06:11 WBC 31.8 H RBC 3.57 L Hgb 8.0 L Hct 27.7 L MCV 78 L MCH 22 L MCHC 29 L RDW 19.2 H Seg Neuts % (Manual) 91.0 H Lymphocytes % (Manual) 4.5 L Seg Neutrophils # Man 28.9 H Lymphocytes # (Manual) Monocytes # (Manual) 1.1 H PT INR D-Dimer 1494.53 H ABG pH ABG pO2 ABG HCO3 ABG O2 Saturation ABG Base Excess ABG Hemoglobin Oxyhemoglobin Chloride Carbon Dioxide 19 L BUN 42 H Glucose 115 H POC Glucose Lactic Acid Calcium AST 43 H ALT Alkaline Phosphatase Lactate Dehydrogenase 187 H Troponin T C-Reactive Protein 22.20 H NT-Pro-B Natriuret Pep Total Protein 6.0 L Albumin 3.2 L LDL Cholesterol Direct Crossmatch 11/05/21 11/05/21 11/06/21 06:11 12:15 00:30 WBC RBC Hgb Hct MCV MCH MCHC RDW Seg Neuts % (Manual) Lymphocytes % (Manual) Seg Neutrophils # Man Lymphocytes # (Manual) Monocytes # (Manual) PT INR D-Dimer ABG pH ABG pO2 ABG HCO3 ABG O2 Saturation ABG Base Excess ABG Hemoglobin Oxyhemoglobin Chloride Carbon Dioxide BUN Glucose POC Glucose 113 H 69 L Lactic Acid Calcium AST ALT Alkaline Phosphatase Lactate Dehydrogenase Troponin T 0.033 H C-Reactive Protein NT-Pro-B Natriuret Pep Total Protein Albumin LDL Cholesterol Direct Crossmatch 11/06/21 11/06/21 11/06/21 05:50 15:50 15:50 WBC 25.5 H RBC 3.62 L Hgb 8.0 L Hct 27.5 L MCV 76 L MCH 22 L MCHC 29 L RDW 19.6 H Seg Neuts % (Manual) 92.0 H Lymphocytes % (Manual) 5.0 L Seg Neutrophils # Man 23.5 H Lymphocytes # (Manual) Monocytes # (Manual) PT INR D-Dimer ABG pH 7.305 L ABG pO2 ABG HCO3 15.8 L ABG O2 Saturation ABG Base Excess -9.6 L ABG Hemoglobin 8.6 L Oxyhemoglobin 94.6 L Chloride 113.9 H Carbon Dioxide 17 L BUN 56 H Glucose 114 H POC Glucose Lactic Acid Calcium 7.9 L AST 1410 H ALT 934 H Alkaline Phosphatase 142 H Lactate Dehydrogenase Troponin T C-Reactive Protein NT-Pro-B Natriuret Pep Total Protein 5.0 L Albumin 2.6 L LDL Cholesterol Direct Crossmatch 11/07/21 11/07/21 11/07/21 03:30 04:50 08:07 WBC RBC Hgb Hct MCV MCH MCHC RDW Seg Neuts % (Manual) Lymphocytes % (Manual) Seg Neutrophils # Man Lymphocytes # (Manual) Monocytes # (Manual) PT INR D-Dimer ABG pH ABG pO2 296.9 H ABG HCO3 18.1 L ABG O2 Saturation 99.5 H ABG Base Excess -5.9 L ABG Hemoglobin 7.6 L Oxyhemoglobin Chloride Carbon Dioxide BUN Glucose POC Glucose 106 H 108 H Lactic Acid Calcium AST ALT Alkaline Phosphatase Lactate Dehydrogenase Troponin T C-Reactive Protein NT-Pro-B Natriuret Pep Total Protein Albumin LDL Cholesterol Direct Crossmatch Chest x-ray: image reviewed Allied health notes reviewed: RT
--- NOTE | 2021-11-07 17:26 | Progress Note ---
Assessment and Plan Assessment and Plan: #Acute respiratory failure with hypoxia - now on bipap currently. - cxr shows worsening bl opacities, may be volume overloaded. - abx iv - work up as below - [facility] [place] consultation #Septic shock POA - wbc: 29.3, LA 3.7, febrile, source pulmonary - hypotensive, fluid bolus, blood products...may require pressors if unresponsive. - bcx, scx, ucx - empiric iv abx remains hypotensive, Initiate Levophed gtt #Group B strep bacteremia - 11/04 Bcx: 4/4 GBS Vancomycin/Levaquin discontinued, Rocephin continued, monitor for allergic reaction (that said risk is very low) - repeat blood cx 11/05 ordered #Bilateral pneumonia - bl opacities on cxr - scx #Acute microcytic anemia - hgb 6.1, mcv: 75 - ordered 1 unit prbc, repeat hgb improved. - trend h/h daily #Suspected COVID-19 virus infection - rt pcr negative #Advance care planning Disease education conducted, care plan discussed, diagnoses discussed, prognosis discussed, patient is full code, patient acknowledges understanding and agree with care plan, +30 minutes. The high probability of a clinically significant, sudden or life threatening deterioration of the [multi] system(s) required my full and direct attention, intervention and personal management. The aggregate critical care time was [40] minutes. This time is in addition to time spent performing reported procedures but includes the following: [x] Data Review and interpretation [x] Patient assessment and monitoring of vital signs [x] Documentation [x] Medication orders and management Subjective Date of service: 11/07/21 Interval history: 81-year-old female with known history of diabetes mellitus, hypertension and arthritis brought to the emergency room via EMS today for shortness of breath wh ich has been ongoing for the past 3 days. Patient has been having some cough and shortness of breath. According to patient's , patient has also been having a fever of about 102.2 F. Upon arrival of EMS patient was found to be tachypneic with O2 saturation of 76% on room air which later improved to 88% on nonrebreather. Disposition : ICU Hospital Course to date: 11/04/2021: Empiric therapy with iv levaquin/vancomycin. COVID PCR pending. Will consult ID. PCCM consulted, will follow recs. Hypotensive this AM, ordered bolus and fluids at 150 cc/hr. May require pressor support if bp does not improve. 11/05/2021: GBS on bcx +, currently on rocephin IV. Currently on bipap due to respiratory distress overnight. Worsening BL opacities on CXR. May be volume overload vs pneumonia. Unfortunately bp too low for lasix at this point. WIll continue levophed and bipap. Once able to tolerate, may do trial of albumin/lasix. Call attempt made to [facility], no response. Will try again tomorrow to update. 11/06/2021: Decompensated overnight requiring intubation. CXR shows worsening interstitial infiltrates. Currenlty on dopamine, levophed, vasopressin. PICC line ordered. Advised RN to place gamble for I/O monitoring. Would benefit from diuresis but very volume overloaded. Prognosis guarded. Objective - Constitutional Vitals: Vital Signs - 12hr 11/07/21 11/07/21 11/07/21 05:31 06:01 06:31 Temperature Pulse Rate 89 90 90 Respiratory 20 20 20 Rate Blood Pressure 135/65 132/66 138/66 Blood Pressure [Left] O2 Sat by Pulse 100 100 100 Oximetry 11/07/21 11/07/21 11/07/21 07:01 07:31 08:01 Temperature Pulse Rate 94 H 98 H 94 H Respiratory 17 20 24 Rate Blood Pressure 136/63 141/67 127/65 Blood Pressure [Left] O2 Sat by Pulse 100 100 100 Oximetry 11/07/21 11/07/21 11/07/21 08:30 09:00 09:01 Temperature Pulse Rate 92 H 92 H 91 H Respiratory 18 17 Rate Blood Pressure 140/65 136/57 133/62 Blood Pressure [Left] O2 Sat by Pulse 100 100 100 Oximetry 11/07/21 11/07/21 11/07/21 09:31 10:01 10:31 Temperature Pulse Rate 92 H 92 H 92 H Respiratory 17 18 17 Rate Blood Pressure 136/62 133/62 138/62 Blood Pressure [Left] O2 Sat by Pulse 100 100 100 Oximetry 11/07/21 11/07/21 11/07/21 10:46 11:01 11:31 Temperature Pulse Rate 92 H 87 87 Respiratory 20 19 19 Rate Blood Pressure 117/50 117/53 Blood Pressure 140/61 [Left] O2 Sat by Pulse 100 100 100 Oximetry 11/07/21 11/07/21 11/07/21 12:01 12:15 12:31 Temperature 96.7 F L Pulse Rate 86 87 Respiratory 17 18 Rate Blood Pressure 116/50 116/51 Blood Pressure [Left] O2 Sat by Pulse 100 100 Oximetry 11/07/21 11/07/21 11/07/21 13:01 13:31 14:00 Temperature 97.6 F Pulse Rate 86 84 Respiratory 21 16 Rate Blood Pressure 113/52 111/51 Blood Pressure [Left] O2 Sat by Pulse 100 100 Oximetry 11/07/21 11/07/21 11/07/21 14:01 14:31 15:01 Temperature Pulse Rate 85 84 87 Respiratory 23 17 18 Rate Blood Pressure 122/51 119/54 125/53 Blood Pressure [Left] O2 Sat by Pulse 100 100 100 Oximetry 11/07/21 11/07/21 11/07/21 15:31 16:01 16:31 Temperature Pulse Rate 82 85 84 Respiratory 16 16 17 Rate Blood Pressure 114/47 106/46 112/52 Blood Pressure [Left] O2 Sat by Pulse 100 100 100 Oximetry - Labs CBC & Chem 7: 11/06/21 15:50 11/06/21 15:50 Labs: Abnormal lab results 11/06/21 11/06/21 11/07/21 Range/Units 15:50 15:50 03:30 Seg Neuts % (Manual) 92.0 H (40.0-70.0) % Lymphocytes % (Manual) 5.0 L (13.4-35.0) % Seg Neutrophils # Man 23.5 H (1.8-7.7) K/mm3 ABG pO2 (80.0-90.0) mm Hg ABG HCO3 (20.0-26.0) mmol/L ABG O2 Saturation (95.0-99.0) % ABG Base Excess (-2.0-3.0) mmol/L ABG Hemoglobin (12.0-16.0) gm/dl POC Glucose 106 H (70-105) mg/dL AST 1410 H (5-40) units/L ALT 934 H (7-56) units/L 11/07/21 11/07/21 Range/Units 04:50 08:07 Seg Neuts % (Manual) (40.0-70.0) % Lymphocytes % (Manual) (13.4-35.0) % Seg Neutrophils # Man (1.8-7.7) K/mm3 ABG pO2 296.9 H (80.0-90.0) mm Hg ABG HCO3 18.1 L (20.0-26.0) mmol/L ABG O2 Saturation 99.5 H (95.0-99.0) % ABG Base Excess -5.9 L (-2.0-3.0) mmol/L ABG Hemoglobin 7.6 L (12.0-16.0) gm/dl POC Glucose 108 H (70-105) mg/dL AST (5-40) units/L ALT (7-56) units/L HEART Score - HEART Score Troponin: Troponin T 0.033 ng/mL (0.00-0.029) H 11/05/21 06:11
[2021-11-08] MEDS: busPIRone 5 MG TAB PO SCH ×2 (01:33→10:41)
[2021-11-08] MEDS: SENNOSIDES/DOCUSATE SODIUM 8.6/50 MG TAB FEEDTUBE SCH ×2 (01:34→10:41)
[2021-11-08] MEDS: HEPARIN 5,000 UNIT/1 ML VIAL SUB-Q SCH ×3 (01:34→18:25)
[2021-11-08] MEDS: INSULIN LISPRO 100 UNIT/ML SUB-Q SCH ×4 (02:20→19:16)
[2021-11-08 03:42] LABS: ABG Base Excess -3.4 mmol/L (-2.0-3.0); ABG HCO3 20.5 mmol/L (20.0-26.0); ABG Methemoglobin 0.5 % (0.0-1.5); ABG Oxygen Saturation 98.6 % (95.0-99.0); ABG PCO2 31.9 mm Hg; ABG PH 7.427 pH Units (7.350-7.450); ABG PO2 127.4 mm Hg (80.0-90.0)
--- NOTE | 2021-11-08 06:04 | Progress Note ---
Assessment and Plan Severe Sepsis POA vs septic shock- 11/03/2021 blood culture: 2 sets positive for GPC Acute respiratory failure with hypoxia, now on MVS Acute microcytic anemia Bilateral pneumonia Left pleural effusion Cardiomyopathy EF 30-35% Moderate pulmonary HTN RVSP 49 IR for ultrasound guided thoracentesis of left pleural effusion- this will help improve respiratory mechanics. Discontinue the femoral CVL Wean vasopressor support for MAP>65 Stop Midazolam and use fentanyl Antibiotics per ID Enteric nutritional support, Monitor electrolytes and address as indicated Conservative fluid management as tolerated by renal function and hemodynamics. Negative fluid balance can be achieved with intermittent diuretic therapy ABG and CXR as clinically indicated - continue to titrate supplemental oxygen to keep SPO2 88-90% - VAP bundle addressed, aspiration precautions - continue bronchodilators with pulmonary hygiene per RT - avoid nephrotoxins, renally dose all medications - Accuchecks with glycemic control per SSI (While critically ill target blood glucose of 140-180 mg/dL; avoid hypoglycemia) - sedation prn for target RASS 0 to -1 - continue to avoid benzodiazepines, reduce the possibility of delirium -antibiotics per ID- BCx positive for beta hemolytic strep, follow up cultures no growth to date - prn analgesia per CPOT score - Maintenance of sleep-wake cycle, avoid delirium - Stress and VTE prophylaxis - mobility, off loading and frequent turning to prevent pressure ulcer - Monitor hemodynamics closely - continue other care per attending / other consultants COVID SPECIFIC INTERVENTIONS - Negative CONDITION: CRITICAL PROGNOSIS: GUARDED CODE STATUS: FULL CODE The high probability of a clinically significant, sudden or life-threatening deterioration of the [respiratory, cardiovascular and hematologic] system(s) required my full and direct attention, intervention and personal management. The aggregate critical care time was [35] minutes without overlap. Time includes spent on; [x] Data Review and interpretation [x] Patient assessment and monitoring of vital signs [x] Documentation [x] Medication orders and management Subjective Date of service: 11/08/21 Interval history: Follow up fro acute hypoxemic resp failure; Septic and cardiogenic shock; severe anemia; Patient seen and examined. Vitals, labs, medications, chart and imaging reviewed. Discussed with respiratory and nursing care staff. Remains on MVS; 20/350/+6/100% Midazolam and Fentanyl Right femoral CVL On Norepinephrine Objective Vital Signs - 12hr 11/07/21 11/07/21 11/07/21 18:31 19:01 19:31 Temperature Pulse Rate 85 80 81 Pulse Rate [ From Monitor] Respiratory 26 H 16 16 Rate Blood Pressure 122/57 111/49 116/51 Blood Pressure [Left] O2 Sat by Pulse 100 100 100 Oximetry 11/07/21 11/07/21 11/07/21 19:50 20:01 20:31 Temperature Pulse Rate 80 80 81 Pulse Rate [ From Monitor] Respiratory 2 L 16 16 Rate Blood Pressure 103/45 117/49 113/46 Blood Pressure [Left] O2 Sat by Pulse 98 100 100 Oximetry 11/07/21 11/07/21 11/07/21 21:01 21:31 22:01 Temperature Pulse Rate 78 77 84 Pulse Rate [ From Monitor] Respiratory 16 16 18 Rate Blood Pressure 118/47 116/47 122/54 Blood Pressure [Left] O2 Sat by Pulse 100 100 100 Oximetry 11/07/21 11/07/21 11/07/21 22:31 23:01 23:07 Temperature Pulse Rate 77 79 76 Pulse Rate [ From Monitor] Respiratory 17 16 17 Rate Blood Pressure 112/51 115/46 115/46 Blood Pressure [Left] O2 Sat by Pulse 100 100 100 Oximetry 11/07/21 11/07/21 11/07/21 23:09 23:11 23:20 Temperature 99.8 F H Pulse Rate 76 77 Pulse Rate [ From Monitor] Respiratory 16 16 Rate Blood Pressure 115/46 115/46 Blood Pressure 115/46 [Left] O2 Sat by Pulse 100 100 100 Oximetry 11/07/21 11/07/21 11/08/21 23:50 23:52 00:00 Temperature 98.7 F Pulse Rate 84 84 Pulse Rate [ 70 From Monitor] Respiratory 20 16 Rate Blood Pressure 103/45 103/45 Blood Pressure [Left] O2 Sat by Pulse 91 91 Oximetry 11/08/21 11/08/21 11/08/21 00:10 00:20 00:30 Temperature Pulse Rate 87 89 87 Pulse Rate [ From Monitor] Respiratory 14 15 18 Rate Blood Pressure 105/41 103/47 113/49 Blood Pressure [Left] O2 Sat by Pulse 94 96 95 Oximetry 11/08/21 11/08/21 11/08/21 00:41 00:51 01:00 Temperature Pulse Rate 86 86 86 Pulse Rate [ From Monitor] Respiratory 19 20 19 Rate Blood Pressure 103/47 109/48 117/44 Blood Pressure [Left] O2 Sat by Pulse 96 97 97 Oximetry 11/08/21 11/08/21 11/08/21 01:11 01:21 01:30 Temperature Pulse Rate 86 77 85 Pulse Rate [ From Monitor] Respiratory 21 17 24 Rate Blood Pressure 117/44 118/51 120/51 Blood Pressure [Left] O2 Sat by Pulse 98 99 99 Oximetry 11/08/21 11/08/21 11/08/21 01:41 01:51 02:00 Temperature Pulse Rate 89 84 82 Pulse Rate [ From Monitor] Respiratory 18 15 21 Rate Blood Pressure 120/51 121/54 110/52 Blood Pressure [Left] O2 Sat by Pulse 99 99 99 Oximetry 11/08/21 11/08/21 11/08/21 02:11 02:21 02:30 Temperature Pulse Rate 79 79 78 Pulse Rate [ From Monitor] Respiratory 21 19 15 Rate Blood Pressure 110/52 113/51 114/50 Blood Pressure [Left] O2 Sat by Pulse 99 100 100 Oximetry 11/08/21 11/08/21 11/08/21 02:41 02:51 03:00 Temperature Pulse Rate 77 75 75 Pulse Rate [ From Monitor] Respiratory 16 19 18 Rate Blood Pressure 114/50 113/51 112/49 Blood Pressure [Left] O2 Sat by Pulse 100 100 100 Oximetry 11/08/21 11/08/21 11/08/21 03:11 03:21 03:30 Temperature Pulse Rate 79 77 80 Pulse Rate [ From Monitor] Respiratory 19 17 16 Rate Blood Pressure 112/49 117/51 117/51 Blood Pressure [Left] O2 Sat by Pulse 100 100 100 Oximetry 11/08/21 11/08/21 11/08/21 03:35 03:41 03:51 Temperature Pulse Rate 76 81 83 Pulse Rate [ From Monitor] Respiratory 4 L 19 18 Rate Blood Pressure 103/45 117/51 116/51 Blood Pressure [Left] O2 Sat by Pulse 98 99 Oximetry 11/08/21 11/08/21 11/08/21 04:00 04:11 04:21 Temperature 97.6 F Pulse Rate 81 84 83 Pulse Rate [ 70 From Monitor] Respiratory 18 18 16 Rate Blood Pressure 122/53 122/53 119/52 Blood Pressure [Left] O2 Sat by Pulse 100 99 100 Oximetry 11/08/21 11/08/21 11/08/21 04:30 04:41 04:51 Temperature Pulse Rate 87 79 81 Pulse Rate [ From Monitor] Respiratory 16 17 20 Rate Blood Pressure 126/55 126/55 121/51 Blood Pressure [Left] O2 Sat by Pulse 100 100 100 Oximetry 11/08/21 05:00 Temperature Pulse Rate 82 Pulse Rate [ From Monitor] Respiratory 20 Rate Blood Pressure 125/53 Blood Pressure [Left] O2 Sat by Pulse 100 Oximetry Constitutional: no acute distress, other (orally intuabted , no patient- ventilator dys-synchrony) Eyes: non-icteric ENT: oropharynx dry Neck: supple, no lymphadenopathy, no JVD Effort: mildly labored Ascultation: Bilateral: diminished breath sounds, rhonchi Cardiovascular: regular rate and rhythm, other (Tachycardia, S1,S2) Gastrointestinal: normoactive bowel sounds, soft, non-tender, non-distended Extremities: pulses normal, edema (hands) Neurologic: pupils equal and round, other (RASS-3) CBC and BMP: 11/10/21 04:00 11/10/21 04:00 ABG, PT/INR, D-dimer: ABG ABG pH 7.427 pH Units (7.350-7.450) 11/08/21 03:10 ABG pCO2 31.9 mm Hg 11/08/21 03:10 ABG pO2 127.4 mm Hg (80.0-90.0) H 11/08/21 03:10 ABG O2 Saturation 98.6 % (95.0-99.0) 11/08/21 03:10 PT/INR, D-dimer PT 18.6 Sec. (12.2-14.9) H 11/03/21 22:32 INR 1.40 (0.87-1.13) H 11/03/21 22:32 D-Dimer 1494.53 ng/mlDDU (0-234) H 11/05/21 06:11 Abnormal lab findings: Abnormal Labs 11/03/21 11/03/21 11/03/21 22:32 22:32 22:32 WBC 29.3 H RBC 2.93 L Hgb 6.1 L Hct 21.9 L MCV 75 L MCH 21 L MCHC 28 L RDW 19.7 H Seg Neuts % (Manual) 97.0 H Lymphocytes % (Manual) 3.0 L Seg Neutrophils # Man 28.4 H Lymphocytes # (Manual) 0.9 L Monocytes # (Manual) PT 18.6 H INR 1.40 H D-Dimer ABG pH ABG pO2 ABG HCO3 ABG O2 Saturation ABG Base Excess ABG Hemoglobin Oxyhemoglobin Chloride Carbon Dioxide 20 L BUN 33 H Glucose 119 H POC Glucose Lactic Acid Calcium 8.3 L AST ALT Alkaline Phosphatase Lactate Dehydrogenase Troponin T 0.035 H C-Reactive Protein NT-Pro-B Natriuret Pep Total Protein Albumin LDL Cholesterol Direct 34 L Crossmatch 11/03/21 11/03/21 11/03/21 22:32 22:32 23:57 WBC RBC Hgb Hct MCV MCH MCHC RDW Seg Neuts % (Manual) Lymphocytes % (Manual) Seg Neutrophils # Man Lymphocytes # (Manual) Monocytes # (Manual) PT INR D-Dimer ABG pH ABG pO2 ABG HCO3 ABG O2 Saturation ABG Base Excess ABG Hemoglobin Oxyhemoglobin Chloride Carbon Dioxide BUN Glucose POC Glucose Lactic Acid 3.70 H* Calcium AST ALT Alkaline Phosphatase 139 H Lactate Dehydrogenase Troponin T C-Reactive Protein NT-Pro-B Natriuret Pep 7895 H Total Protein Albumin 3.5 L LDL Cholesterol Direct Crossmatch See Detail 11/04/21 11/04/21 11/05/21 00:59 13:58 00:51 WBC 27.9 H RBC 3.28 L Hgb 7.3 L Hct 25.5 L MCV 78 L MCH 22 L MCHC 29 L RDW 19.1 H Seg Neuts % (Manual) 96.0 H Lymphocytes % (Manual) 2.0 L Seg Neutrophils # Man 26.8 H Lymphocytes # (Manual) 0.6 L Monocytes # (Manual) PT INR D-Dimer ABG pH ABG pO2 ABG HCO3 ABG O2 Saturation ABG Base Excess ABG Hemoglobin Oxyhemoglobin Chloride Carbon Dioxide BUN Glucose POC Glucose Lactic Acid Calcium AST ALT Alkaline Phosphatase Lactate Dehydrogenase Troponin T 0.051 H D 0.032 H D C-Reactive Protein NT-Pro-B Natriuret Pep Total Protein Albumin LDL Cholesterol Direct Crossmatch 11/05/21 11/05/21 11/05/21 06:11 06:11 06:11 WBC 31.8 H RBC 3.57 L Hgb 8.0 L Hct 27.7 L MCV 78 L MCH 22 L MCHC 29 L RDW 19.2 H Seg Neuts % (Manual) 91.0 H Lymphocytes % (Manual) 4.5 L Seg Neutrophils # Man 28.9 H Lymphocytes # (Manual) Monocytes # (Manual) 1.1 H PT INR D-Dimer 1494.53 H ABG pH ABG pO2 ABG HCO3 ABG O2 Saturation ABG Base Excess ABG Hemoglobin Oxyhemoglobin Chloride Carbon Dioxide 19 L BUN 42 H Glucose 115 H POC Glucose Lactic Acid Calcium AST 43 H ALT Alkaline Phosphatase Lactate Dehydrogenase 187 H Troponin T C-Reactive Protein 22.20 H NT-Pro-B Natriuret Pep Total Protein 6.0 L Albumin 3.2 L LDL Cholesterol Direct Crossmatch 11/05/21 11/05/21 11/06/21 06:11 12:15 00:30 WBC RBC Hgb Hct MCV MCH MCHC RDW Seg Neuts % (Manual) Lymphocytes % (Manual) Seg Neutrophils # Man Lymphocytes # (Manual) Monocytes # (Manual) PT INR D-Dimer ABG pH ABG pO2 ABG HCO3 ABG O2 Saturation ABG Base Excess ABG Hemoglobin Oxyhemoglobin Chloride Carbon Dioxide BUN Glucose POC Glucose 113 H 69 L Lactic Acid Calcium AST ALT Alkaline Phosphatase Lactate Dehydrogenase Troponin T 0.033 H C-Reactive Protein NT-Pro-B Natriuret Pep Total Protein Albumin LDL Cholesterol Direct Crossmatch 11/06/21 11/06/21 11/06/21 05:50 15:50 15:50 WBC 25.5 H RBC 3.62 L Hgb 8.0 L Hct 27.5 L MCV 76 L MCH 22 L MCHC 29 L RDW 19.6 H Seg Neuts % (Manual) 92.0 H Lymphocytes % (Manual) 5.0 L Seg Neutrophils # Man 23.5 H Lymphocytes # (Manual) Monocytes # (Manual) PT INR D-Dimer ABG pH 7.305 L ABG pO2 ABG HCO3 15.8 L ABG O2 Saturation ABG Base Excess -9.6 L ABG Hemoglobin 8.6 L Oxyhemoglobin 94.6 L Chloride 113.9 H Carbon Dioxide 17 L BUN 56 H Glucose 114 H POC Glucose Lactic Acid Calcium 7.9 L AST 1410 H ALT 934 H Alkaline Phosphatase 142 H Lactate Dehydrogenase Troponin T C-Reactive Protein NT-Pro-B Natriuret Pep Total Protein 5.0 L Albumin 2.6 L LDL Cholesterol Direct Crossmatch 11/07/21 11/07/21 11/07/21 03:30 04:50 08:07 WBC RBC Hgb Hct MCV MCH MCHC RDW Seg Neuts % (Manual) Lymphocytes % (Manual) Seg Neutrophils # Man Lymphocytes # (Manual) Monocytes # (Manual) PT INR D-Dimer ABG pH ABG pO2 296.9 H ABG HCO3 18.1 L ABG O2 Saturation 99.5 H ABG Base Excess -5.9 L ABG Hemoglobin 7.6 L Oxyhemoglobin Chloride Carbon Dioxide BUN Glucose POC Glucose 106 H 108 H Lactic Acid Calcium AST ALT Alkaline Phosphatase Lactate Dehydrogenase Troponin T C-Reactive Protein NT-Pro-B Natriuret Pep Total Protein Albumin LDL Cholesterol Direct Crossmatch 11/08/21 03:10 WBC RBC Hgb Hct MCV MCH MCHC RDW Seg Neuts % (Manual) Lymphocytes % (Manual) Seg Neutrophils # Man Lymphocytes # (Manual) Monocytes # (Manual) PT INR D-Dimer ABG pH ABG pO2 127.4 H ABG HCO3 ABG O2 Saturation ABG Base Excess -3.4 L ABG Hemoglobin 7.4 L Oxyhemoglobin Chloride Carbon Dioxide BUN Glucose POC Glucose Lactic Acid Calcium AST ALT Alkaline Phosphatase Lactate Dehydrogenase Troponin T C-Reactive Protein NT-Pro-B Natriuret Pep Total Protein Albumin LDL Cholesterol Direct Crossmatch Allied health notes reviewed: RT
[2021-11-08] MEDS: LEVOTHYROXINE 125 MCG TAB PO SCH (06:08)
[2021-11-08 10:14] LABS: Hematocrit 25.4 % (30.3-42.9); Hemoglobin 7.5 gm/dl (10.1-14.3); Mean Corpuscular HGB Conc 30 % (30-34); Mean Corpuscular Volume 76 fl (79-97); Platelet Count 145 K/mm3 (140-440); Red Blood Count 3.35 M/mm3 (3.65-5.03); Red Cell Distribution Width 19.9 % (13.2-15.2)
[2021-11-08 10:37] LABS: BUN/Creatinine Ratio 54; Blood Urea Nitrogen 38 mg/dL (7-17); Calcium 8.3 mg/dL (8.4-10.2); Hemolysis Index 1
[2021-11-08] MEDS: cefTRIAXone/NS 2 GM/100 ML 2 GM/100 ML BAG IV SCH (10:40)
[2021-11-08] MEDS: FAMOTIDINE 20 MG/2 ML INJ IV SCH (10:41)
--- NOTE | 2021-11-08 10:42 | XRay Report ---
ABDOMEN 1 VIEW INDICATION / CLINICAL INFORMATION: OGT Placement. COMPARISON: One view of the chest from 11/06/2021. FINDINGS: TUBES / LINES: An orogastric tube terminates over the gastric body. A right common femoral CVL termin ates approximately 2 cm below the right SI joint. BOWEL GAS PATTERN: No dilated bowel loops. A large amount of stool is seen along the rectum. FREE AIR / EXTRALUMINAL GAS: None seen. ADDITIONAL FINDINGS: Worsening bilateral pleural parenchymal opacities are partially visualized. A le ft pacemaker and right arm PICC are unchanged in position. IMPRESSION: 1. Satisfactory positioning of the orogastric tube with evidence of constipation/stool impaction. 2. Additional findings as above. Signer Name: Osiel Kirk MD Signed: 11/08/2021 10:38 AM Workstation Name: [id number]
[2021-11-08] MEDS ORDERED: LIPASE 10,500/PROTEASE 25,000/AMYLASE 43,750 (UNITS) DR CAP FEEDTUBE PRN (11:09)
[2021-11-08] MEDS ORDERED: SODIUM BICARBONATE 325 MG TAB FEEDTUBE PRN (11:09)
[2021-11-08] MEDS ORDERED: SIMPLE SYRUP 15 ML FEEDTUBE PRN ×2 (11:09)
[2021-11-08] MEDS ORDERED: POTASSIUM CHLORIDE 20 MEQ PACKET FEEDTUBE SCH (11:17)
--- NOTE | 2021-11-08 11:20 | Progress Note ---
Assessment and Plan Assessment and plan: This is a 81-year-old female with known history of diabetes mellitus, hypertension, PPM, and arthritis admitted for sepsis and acute hypoxia respiratory failure 2/2 bilateral pneumonia requiring intubation and ventilatory support Hospital Course to date: 11/04/2021: Empiric therapy with iv levaquin/vancomycin. COVID PCR pending. Will consult ID. PCCM consulted, will follow recs. Hypotensive this AM, ordered bolus and fluids at 150 cc/hr. May require pressor support if bp does not improve. 11/05/2021: GBS on bcx +, currently on rocephin IV. Currently on bipap due to respiratory distress overnight. Worsening BL opacities on CXR. May be volume overload vs pneumonia. Unfortunately bp too low for lasix at this point. WIll continue levophed and bipap. Once able to tolerate, may do trial of albumin/lasix. Call attempt made to Niraj, no response. Will try again tomorrow to update. 11/06/2021: Decompensated overnight requiring intubation. CXR shows worsening int erstitial infiltrates. Currenlty on dopamine, levophed, vasopressin. PICC line ordered. Advised RN to place gamble for I/O monitoring. Would benefit from diuresis but very volume overloaded. Prognosis guarded 11/08: Off sedation this am, remains unresponsive only grimace to pain. Hold all sedatives agents for now, patient is off pressors this am. Hypernatremia from today's lab- D5W X1bag, and low K repleted, repeat lab in the am. Severe constipation also noted from KUB, BR added. Assessment and Plan #Septic Shock POA #Bilateral Pneumonia #Bacteremia - Presented with fevers, leukocytosis, and hypotension - COVID PCR negative - 11/04 Bcult with 3/4 group B strep bacteremia - 11/05 Repeat Bculture pending - 11/04 2D Echo with no evidence of vegetation - ID on consult, appreciate recommendations - Continue current IV Abx per ID - F/u on culture data - Trend CBC #Acute Hypoxic Respiratory Failure 2/2 #Bilateral Pleural Effusion #Bilateral Pneumonia - COVID PCR negative - CXR shows Bilateral opacities, may be volume overloaded. - Intubated on 11/06 - Vent Setting:A/C-35%,6,16,350 - This am ABG noted - CCM consulted, appreciate recommendations - Continue IV ABx - VAP bundle addressed - Aspiration precaution HOB above 30 - PS trials when more awake - ABG and CXR er CCM - Continue SPO2 monitoring for SPO2 goal above 92% #CHF- EF 30-35% with PPM #Hypotension-improved #Septic Kristian - Was on 3 pressors initially - Off pressors this am - SR on the monitor, HR 70-90s - 11/04 Echo-EF 30-35% - Cardiology consulted - Continue blood pressure monitor per protocol - Maintain MAP above 65 #Acute Encephalopathy - Probably r/t sedation vs infectious process vs high Na - Pt was on versed gtt, now D/c - CT head noted - Will contine to monitor for now - Hold all sedatives agents #Acute Microcytic Anemia - s/p 1unit of PRBCs - H&H stable this am - trend h/h daily #Transaminitis/Shock Liver - Probably due to bacteria/spetic shock - Continue to Trend LFTs #DVT Prophylaxis - Continue AC- heparin subQ - SCDs to bilateral lower extremities while in bed The high probability of a clinically significant, sudden or life threatening deterioration of the [multi] system(s) required my full and direct attention, intervention and personal management. The aggregate critical care time was [60] minutes. This time is in addition to time spent performing reported procedures but includes the following: [x] Data Review and interpretation [x] Patient assessment and monitoring of vital signs [x] Documentation [x] Medication orders and management Disposition Plan: ICU Total Time Spent with Patient (Minutes): 60 History Interval history: Patient seen and examined at the bedside. Intubated, not on any sedation, only grimace to pain. MARIA DEL CARMEN overnight Hospitalist Physical - Constitutional Vitals: Temp Pulse Resp BP Pulse Ox 97.9 F 84 17 116/48 99 11/08/21 08:00 11/08/21 11:00 11/08/21 11:00 11/08/21 11:00 11/08/21 11:00 General appearance: Present: no acute distress, other (Intubated and u nresponsive) - EENT Eyes: Present: PERRL - Respiratory Respiratory effort: normal Respiratory: bilateral: rhonchi - Cardiovascular Rhythm: regular Heart Sounds: Present: S1 & S2 - Extremities Extremities: no ischemia, pulses intact, pulses symmetrical Extremity abnormal: edema - Peripheral Assessment Generalized Edema Type: Non-pitting Edema Degree: 1+ Capillary Refill: < 3 seconds Skin Temperature: Warm Peripheral Pulses: within normal limits - Abdominal General gastrointestinal: soft, non-distended, hypoactive bowel sounds - Integumentary Integumentary: Present: warm, dry - Psychiatric Psychiatric: other (Intubated and unresponsive) - Neurologic Neurologic: other (Intubated and unresponsive) - Allied Health Allied health notes reviewed: nursing HEART Score - HEART Score Troponin: Troponin T 0.033 ng/mL (0.00-0.029) H 11/05/21 06:11 Results - Labs CBC & Chem 7: 11/08/21 Unknown 11/08/21 Unknown Labs: Laboratory Last Values WBC 10.1 K/mm3 (4.5-11.0) 11/08/21 Unknown RBC 3.35 M/mm3 (3.65-5.03) L 11/08/21 Unknown Hgb 7.5 gm/dl (10.1-14.3) L 11/08/21 Unknown Hct 25.4 % (30.3-42.9) L 11/08/21 Unknown MCV 76 fl (79-97) L 11/08/21 Unknown MCH 23 pg (28-32) L 11/08/21 Unknown MCHC 30 % (30-34) 11/08/21 Unknown RDW 19.9 % (13.2-15.2) H 11/08/21 Unknown Plt Count 145 K/mm3 (140-440) 11/08/21 Unknown Add Manual Diff Complete 11/06/21 15:50 Total Counted 100 11/06/21 15:50 Seg Neutrophils % Incubator Operator 11/06/21 15:50 Seg Neuts % (Manual) 92.0 % (40.0-70.0) H 11/06/21 15:50 Band Neutrophils % 0 % 11/06/21 15:50 Lymphocytes % (Manual) 5.0 % (13.4-35.0) L 11/06/21 15:50 Reactive Lymphs % (Man) 0 % 11/06/21 15:50 Monocytes % (Manual) 3.0 % (0.0-7.3) 11/06/21 15:50 Eosinophils % (Manual) 0 % (0.0-4.3) 11/06/21 15:50 Basophils % (Manual) 0 % (0.0-1.8) 11/06/21 15:50 Metamyelocytes % 0 % 11/06/21 15:50 Myelocytes % 0 % 11/06/21 15:50 Promyelocytes % 0 % 11/06/21 15:50 Blast Cells % 0 % 11/06/21 15:50 Nucleated RBC % Not Reportable 11/06/21 15:50 Seg Neutrophils # Man 23.5 K/mm3 (1.8-7.7) H 11/06/21 15:50 Band Neutrophils # 0.0 K/mm3 11/06/21 15:50 Lymphocytes # (Manual) 1.3 K/mm3 (1.2-5.4) 11/06/21 15:50 Abs React Lymphs (Man) 0.0 K/mm3 11/06/21 15:50 Monocytes # (Manual) 0.8 K/mm3 (0.0-0.8) 11/06/21 15:50 Eosinophils # (Manual) 0.0 K/mm3 (0.0-0.4) 11/06/21 15:50 Basophils # (Manual) 0.0 K/mm3 (0.0-0.1) 11/06/21 15:50 Metamyelocytes # 0.0 K/mm3 11/06/21 15:50 Myelocytes # 0.0 K/mm3 11/06/21 15:50 Promyelocytes # 0.0 K/mm3 11/06/21 15:50 Blast Cells # 0.0 K/mm3 11/06/21 15:50 WBC Morphology Not Reportable 11/06/21 15:50 Hypersegmented Neuts Not Reportable 11/06/21 15:50 Hyposegmented Neuts Not Reportable 11/06/21 15:50 Hypogranular Neuts Not Reportable 11/06/21 15:50 Smudge Cells Not Reportable 11/06/21 15:50 Toxic Granulation Not Reportable 11/06/21 15:50 Toxic Vacuolation Not Reportable 11/06/21 15:50 Dohle Bodies Not Reportable 11/06/21 15:50 Pelger-Huet Anomaly Not Reportable 11/06/21 15:50 Irina Rods Not Reportable 11/06/21 15:50 Platelet Estimate Consistent w auto 11/06/21 15:50 Clumped Platelets Not Reportable 11/06/21 15:50 Plt Clumps, EDTA Not Reportable 11/06/21 15:50 Large Platelets Not Reportable 11/06/21 15:50 Giant Platelets Not Reportable 11/06/21 15:50 Platelet Satelliting Not Reportable 11/06/21 15:50 Plt Morphology Comment Not Reportable 11/06/21 15:50 RBC Morphology Not Reportable 11/06/21 15:50 Dimorphic RBCs Not Reportable 11/06/21 15:50 Polychromasia Not Reportable 11/06/21 15:50 Hypochromasia 2+ 11/06/21 15:50 Poikilocytosis Not Reportable 11/06/21 15:50 Anisocytosis 1+ 11/06/21 15:50 Microcytosis Not Reportable 11/06/21 15:50 Macrocytosis Not Reportable 11/06/21 15:50 Spherocytes Not Reportable 11/06/21 15:50 Pappenheimer Bodies Not Reportable 11/06/21 15:50 Sickle Cells Not Reportable 11/06/21 15:50 Target Cells Not Reportable 11/06/21 15:50 Tear Drop Cells Not Reportable 11/06/21 15:50 Ovalocytes Not Reportable 11/06/21 15:50 Helmet Cells Not Reportable 11/06/21 15:50 Odonnell-Haugan Bodies Not Reportable 11/06/21 15:50 [place] Rings Not Reportable 11/06/21 15:50 Malcom Cells Not Reportable 11/06/21 15:50 Bite Cells Not Reportable 11/06/21 15:50 Crenated Cell Not Reportable 11/06/21 15:50 Elliptocytes Not Reportable 11/06/21 15:50 Acanthocytes (Spur) Not Reportable 11/06/21 15:50 Rouleaux Not Reportable 11/06/21 15:50 Hemoglobin C Crystals Not Reportable 11/06/21 15:50 Schistocytes Not Reportable 11/06/21 15:50 Malaria parasites Not Reportable 11/06/21 15:50 Godfrey Bodies Not Reportable 11/06/21 15:50 Hem Pathologist Commnt No 11/06/21 15:50 PT 18.6 Sec. (12.2-14.9) H 11/03/21 22:32 INR 1.40 (0.87-1.13) H 11/03/21 22:32 APTT 28.9 Sec. (24.2-36.6) 11/03/21 22:32 D-Dimer 1494.53 ng/mlDDU (0-234) H 11/05/21 06:11 ABG pH 7.427 pH Units (7.350-7.450) 11/08/21 03:10 ABG pCO2 31.9 mm Hg 11/08/21 03:10 ABG pO2 127.4 mm Hg (80.0-90.0) H 11/08/21 03:10 ABG HCO3 20.5 mmol/L (20.0-26.0) 11/08/21 03:10 ABG O2 Saturation 98.6 % (95.0-99.0) 11/08/21 03:10 ABG O2 Content 10.3 (0.0-44) 11/08/21 03:10 ABG Base Excess -3.4 mmol/L (-2.0-3.0) L 11/08/21 03:10 ABG Hemoglobin 7.4 gm/dl (12.0-16.0) L 11/08/21 03:10 ABG Carboxyhemoglobin 1.7 % (0.0-5.0) 11/08/21 03:10 ABG Methemoglobin 0.5 % (0.0-1.5) 11/08/21 03:10 Oxyhemoglobin 96.4 % (95.0-99.0) 11/08/21 03:10 FiO2 45 % 11/08/21 03:10 Sodium 154 mmol/L (137-145) H D 11/08/21 Unknown Potassium 3.3 mmol/L (3.6-5.0) L 11/08/21 Unknown Chloride 120.7 mmol/L (98-107) H 11/08/21 Unknown Carbon Dioxide 20 mmol/L (22-30) L 11/08/21 Unknown Anion Gap 17 mmol/L 11/08/21 Unknown BUN 38 mg/dL (7-17) H 11/08/21 Unknown Creatinine 0.7 mg/dL (0.6-1.2) 11/08/21 Unknown Estimated GFR > 60 ml/min 11/08/21 Unknown BUN/Creatinine Ratio 54 % 11/08/21 Unknown Glucose 97 mg/dL (65-100) 11/08/21 Unknown POC Glucose 89 mg/dL (70-105) 11/08/21 09:47 Lactic Acid 3.70 mmol/L (0.7-2.0) H* 11/03/21 22:32 Calcium 8.3 mg/dL (8.4-10.2) L 11/08/21 Unknown Ferritin 52.6 ng/mL (10.0-200.0) 11/05/21 06:11 Total Bilirubin 0.50 mg/dL (0.1-1.2) 11/06/21 15:50 Direct Bilirubin < 0.2 mg/dL (0-0.2) 11/03/21 22:32 Indirect Bilirubin 0.2 mg/dL 11/03/21 22:32 AST 1410 units/L (5-40) H 11/06/21 15:50 ALT 934 units/L (7-56) H 11/06/21 15:50 Alkaline Phosphatase 142 units/L (35-129) H 11/06/21 15:50 Lactate Dehydrogenase 187 units/L (91-180) H 11/05/21 06:11 Troponin T 0.033 ng/mL (0.00-0.029) H 11/05/21 06:11 C-Reactive Protein 22.20 mg/dL (0.00-1.30) H 11/05/21 06:11 NT-Pro-B Natriuret Pep 7895 pg/mL (0-900) H 11/03/21 22:32 Total Protein 5.0 g/dL (6.3-8.2) L 11/06/21 15:50 Albumin 2.6 g/dL (3.9-5) L 11/06/21 15:50 Albumin/Globulin Ratio 1.1 % 11/06/21 15:50 Triglycerides 66 mg/dL (2-149) 11/03/21 22:32 Cholesterol 80 mg/dL (50-199) 11/03/21 22:32 LDL Cholesterol Direct 34 mg/dL (50-130) L 11/03/21 22:32 HDL Cholesterol 42 mg/dL (40-59) 11/03/21 22:32 Cholesterol/HDL Ratio 1.90 % 11/03/21 22:32 Coronavirus (PCR) Negative (Negative) 11/04/21 Unknown Blood Type O POSITIVE 11/03/21 23:57 Antibody Screen Negative 11/03/21 23:57 Crossmatch See Detail 11/03/21 23:57 Microbiology: Microbiology 11/04/21 15:03 Peripheral/Venous Blood Culture - Preliminary NO GROWTH AFTER 72 HOURS 11/04/21 15:03 Peripheral/Venous Blood Culture - Preliminary NO GROWTH AFTER 72 HOURS Gamble/IV: Voiding Method Indwelling Catheter Active Medications - Current Medications Current Medications: Generic Name Dose Route Start Last Admin Trade Name Freq PRN Reason Stop Dose Admin Acetaminophen 650 mg 11/04/21 02:03 11/05/21 00:04 Acetaminophen 325 Mg Tab PO 650 mg Q6H PRN Administration Pain MILD(1-3)/Fever >100.5/RODRIGUEZ Hydrocodone Bitart/Acetaminophen 1 each 11/05/21 00:59 11/05/21 08:35 Hydrocodone/Acetaminophen 10-325mg Tab PO 1 each Q6H PRN Administration Pain, Moderate (4-6) Lipase/Protease/Amylase 1 each 11/08/21 11:09 Lipase 10,500/Protease 25,000/Amylase 43,750 (Units) Dr Lema FEEDTUBE PRN PRN For Clogged Feeding Tube Buspirone HCl 7.5 mg 11/04/21 23:45 11/08/21 10:41 Buspirone 5 Mg Tab PO 7.5 mg BID YOSSI Administration Dextrose 50 ml 11/04/21 02:03 Dextrose 50% In Water (25gm) 50 Ml Syringe IV Q30MIN PRN Hypoglycemia Protocol Docusate Sodium 100 mg 11/08/21 12:00 Docusate Sodium 100 Mg/10 Ml Oral Liqd PO BID YOSSI Famotidine 20 mg 11/06/21 10:00 11/08/21 10:41 Famotidine 20 Mg/2 Ml Inj IV 20 mg DAILY YOSSI Administration Heparin Sodium (Porcine) 5,000 unit 11/08/21 10:00 11/08/21 10:41 Heparin 5,000 Unit/1 Ml Vial SUB-Q 5,000 unit 0200,1000,1800 YOSSI Administration Hydrophilic Ointment 1 applic 11/06/21 04:02 Lip Therapy Vaseline TP Q2HR PRN Dry Lips Ceftriaxone Sodium 2 gm in 100 mls @ 200 mls/hr 11/04/21 15:00 11/08/21 10:40 Rocephin/Ns 2 Gm/100 Ml IV 200 mls/hr Q24HR YOSSI Administration Protocol NORepinephrine/NS 8 MG-250 ML 8 mg in 250 mls @ 3.75 mls/hr 11/05/21 09:00 11/07/21 08:45 Norepinephrine/Ns 8 Mg-250 Ml (Double Conc) IV Infused TITRATE YOSSI Titration Protocol 2 MCG/MIN Vasopressin 20 unit/ Sodium 101 mls @ 9.09 mls/hr 11/05/21 23:00 11/06/21 01:00 Chloride IV 0.03 units/min TITR YOSSI 9.09 mls/hr Administration Protocol 0.03 UNITS/MIN Dopamine HCl/Dextrose 800 mg in 250 mls @ 2.211 mls/hr 11/06/21 00:32 11/06/21 14:18 Dopamine 800 Mg/D5w 250ml IV 11/10/21 17:36 Infused TITR ONE Titration Protocol 2 MCG/KG/MIN Midazolam HCl 100 mg/ Sodium 100 mls @ 2 mls/hr 11/06/21 05:00 11/08/21 06:07 Chloride IV 0 mg/hr TITR YOSSI 0 mls/hr Titration Protocol 2 MG/HR Clindamycin HCl 900 mg in 50 mls @ 100 mls/hr 11/08/21 02:00 11/08/21 10:40 Cleocin 900 Mg/50 Ml IV 100 mls/hr 0200,1000,1800 [facility] Administration Protocol Dextrose 1,000 mls @ 75 mls/hr 11/08/21 12:00 D5w IV 11/09/21 01:19 DIRECT [facility] Insulin Human Lispro 0 unit 11/06/21 12:00 11/08/21 06:08 Insulin Lispro 100 Unit/Ml SUB-Q Not Given Q6HR [facility] Protocol Levothyroxine Sodium 125 mcg 11/05/21 07:00 11/08/21 06:08 Levothyroxine 125 Mcg Tab PO 125 mcg DAILY@0600 [facility] Administration Magnesium Hydroxide 30 ml 11/04/21 02:03 Magnesium Hydroxide (Mom) Oral Liqd Udc PO Q4H PRN Constipation Midazolam HCl 2 mg 11/06/21 04:02 11/06/21 04:00 Midazolam 2 Mg/2 Ml Inj IV 2 mg Q10MIN PRN Administration Sedation Multi-Ingred Cream/Lotion/Oil/Oint 1 applic 11/06/21 04:02 Mineral Oil/Petrolatum, White Ophth Oint 3.5 Gm OU Q4HR PRN Dry Eye(s) Ondansetron HCl 4 mg 11/04/21 02:03 11/05/21 15:48 Ondansetron 4 Mg/2 Ml Inj IV 4 mg Q8H PRN Administration Nausea And Vomiting Polyethylene Glycol 17 gm 11/08/21 12:00 Polyethylene Glycol 3350 17 Gm Powder PO QDAY YOSSI Potassium Chloride 40 meq 11/08/21 11:17 Potassium Chloride 20 Meq Packet FEEDTUBE 11/08/21 11:18 ONCE ONE Senna 17.6 mg 11/08/21 22:00 Sennosides Oral Liqd 8.8 Mg/5 Ml Oral Liqd PO Q12HR YOSSI Simple Syrup 15 ml 11/08/21 11:09 Simple Syrup 15 Ml FEEDTUBE PRN PRN Hypoglycemia Simple Syrup 30 ml 11/08/21 11:09 Simple Syrup 15 Ml FEEDTUBE PRN PRN Hypoglycemia Sodium Bicarbonate 325 mg 11/08/21 11:09 Sodium Bicarbonate 325 Mg Tab FEEDTUBE PRN PRN For Clogged Feeding Tube Sodium Chloride 10 ml 11/04/21 10:00 11/08/21 10:40 Sodium Chloride 0.9% 10 Ml Flush Syringe IV 10 ml BID YOSSI Administration Sodium Chloride 10 ml 11/04/21 02:03 Sodium Chloride 0.9% 10 Ml Flush Syringe IV PRN PRN LINE FLUSH Nutrition/Malnutrition Assess - Dietary Evaluation Nutrition/Malnutrition Findings: Nutrition Notes Start: 11/04/21 17:16 Freq: Status: Active Protocol: Document 11/04/21 17:16 ISABELL (Rec: 11/04/21 17:22 ISABELL [id number]) Nutrition Notes Need for Assessment generated from: MD Order,Education Initial or Follow up Brief Note Current Diagnosis Diabetes,Hypertension, Respiratory Failure Other Pertinent Diagnosis COVID-19 pui, Bilateral Pneumonia, Acute Anemia. Current Diet Cardiac/Consistent Carbohydrates Diet (since B ). Height 5 ft Weight 58.967 kg [place] Body Weight (kg) 45.45 BMI 25.4 Weight change and time frame None reported at admission. Weight Status Appropriate Subjective/Other Information RD consult for nutrition education. No report available on PO intake of meals at the time. Pt still on ED, not a candidate for Nutrition Education at the time, will assess feasibility on F/U. Percent of energy/protein needs met: Prescribed Cardiac/Consistent Carbohydrates Diet provides for energy/protein needs (1, 977 Kcal/86 g) during LOS. Nutrition Intervention Follow-Up By: 11/11/21 Additional Comments Nutrition education will be provided on F/U if feasible. Continue monitoring food tolerance, %PO intake of meals , and BM.
[2021-11-08] MEDS ORDERED: fentaNYL 100 MCG/2 ML INJ IV PRN (11:21)
[2021-11-08] MEDS ORDERED: DEXTROSE 5% IN WATER 1,000 ML IV SCH (12:00)
--- NOTE | 2021-11-08 14:49 | Event Note ---
Date: 11/08/21 Received a call from patient's , Niraj Amaro. Patient's daughter was also on the call. They were updated on patient's condition and status. All questions and concerns were voiced at this time. Team will continue to follow up with further updates. Contact Info:- Niraj Amaro At [phone] + [id number]- [phone]
[2021-11-08] MEDS: POLYETHYLENE GLYCOL 3350 17 GM POWDER PO SCH (15:27)
[2021-11-08] MEDS: DOCUSATE SODIUM 100 MG/10 ML ORAL LIQD PO SCH ×2 (15:27→22:19)
--- NOTE | 2021-11-08 18:18 | Consultation ---
History of Present Illness Consult date: 11/08/21 Requesting physician: LONNIE MAURICE Consult reason: congestive heart failure History of present illness: Pt is an 81-year-old female with a hx of CAD s/p PCI (2004), CHB s/p PPM ([facility], 11/2020), and HTN, who presented with complaints of SOB and fever. She was found to be in respiratory distress, initially treated with NRB. Pt was also noted to be septic with radiographic evidence of bilateral PNA. Pt was eventually intubated and ultimately required vasopressor support. Cardiology has been consulted today for evaluation and management of suspected CHF. ProBNP 7895pg/mL at admission. CXR reveals evidence of increasing pulmonary vascular congestion, along with previously noted bilateral pleural effusions. Of note, was previously followed in our office by Dr. Cohen but now follows with [facility]. Dobutamine stress echo 11/25/2020: no evidence of ischemia, LVEF 60%. Echo 11/22/2020: EF 55-60%, grade II diastolic dysfunction, mild biatrial enlargement, mild , mild TR. Lexiscan stress MPI 11/2018: medium-sized partially reversible apical defect, large fixed inferior defect, small fixed inferolateral defect, EF 57%. Past History Past Medical History: arthritis, CAD, diabetes, hypertension, hypothyroidism, other (CHB) Past Surgical History: PTCA, Other (PPM). denies: valve replacement, CABG Social history: denies: smoking, alcohol abuse Family history: CAD, cancer, hypertension Medications and Allergies Allergies Allergy/AdvReac Type Severity Reaction Status Date / Time codeine Allergy Unknown Verified 11/04/21 02:20 meperidine HCl [From Demerol] Allergy Unknown Verified 11/04/21 02:21 morphine Allergy Unknown Verified 11/04/21 02:21 Penicillins Allergy Swelling Verified 11/04/21 02:21 Home Medications Medication Instructions Recorded Confirmed Last Taken Type Buspirone HCl [busPIRone] 15 mg PO DAILY 11/04/21 11/04/21 Unknown History Furosemide [Lasix] 40 mg PO QDAY 11/04/21 11/04/21 Unknown History HYDROcodone/APAP 10-325 [[place] 1 each PO Q8HR PRN 11/04/21 11/04/21 Unknown History 10/325] Levothyroxine [Synthroid] 125 mcg PO QAM 11/04/21 11/04/21 Unknown History Loratadine [Allergy Relief] 10 mg PO QDAY PRN 11/04/21 11/04/21 Unknown History Meclizine [Antivert] 12.5 mg PO BID PRN 11/04/21 11/04/21 Unknown History Nitroglycerin [Nitrostat] 0.4 mg SL PRN PRN 11/04/21 11/04/21 Unknown History Omeprazole Magnesium [Prilosec] 20 mg PO QDAY 11/04/21 11/04/21 Unknown History Ondansetron HCl [Zofran] 4 mg PO Q6HR PRN 11/04/21 11/04/21 Unknown History Pravastatin Sodium [Pravastatin] 20 mg PO QHS 11/04/21 11/04/21 Unknown History Prednisone [predniSONE (Rebeca) ER 1 mg PO QDAY 11/04/21 11/04/21 Unknown History TAB] allopurinoL [Zyloprim] 300 mg PO QDAY 11/04/21 11/04/21 Unknown History Active Meds: Active Medications Acetaminophen (Acetaminophen 325 Mg Tab) 650 mg PO Q6H PRN PRN Reason: Pain MILD(1-3)/Fever >100.5/RODRIGUEZ Last Admin: 11/05/21 00:04 Dose: 650 mg Lipase/Protease/Amylase (Lipase 10,500/Protease 25,000/Amylase 43,750 (Units) Dr Lema) 1 each FEEDTUBE PRN PRN PRN Reason: For Clogged Feeding Tube Dextrose (Dextrose 50% In Water (25gm) 50 Ml Syringe) 50 ml IV Q30MIN PRN; Protocol PRN Reason: Hypoglycemia Docusate Sodium (Docusate Sodium 100 Mg/10 Ml Oral Liqd) 100 mg PO BID [facility] Last Admin: 11/08/21 15:27 Dose: 100 mg Famotidine (Famotidine 20 Mg/2 Ml Inj) 20 mg IV DAILY [facility] Last Admin: 11/08/21 10:41 Dose: 20 mg Furosemide (Furosemide 20 Mg/2 Ml Inj) 20 mg IV 0600,1800 [facility] Heparin Sodium (Porcine) (Heparin 5,000 Unit/1 Ml Vial) 5,000 unit SUB-Q 0200,1000,1800 [facility] Last Admin: 11/08/21 10:41 Dose: 5,000 unit Hydrophilic Ointment (Lip Therapy Vaseline) 1 applic TP Q2HR PRN PRN Reason: Dry Lips Ceftriaxone Sodium (Rocephin/Ns 2 Gm/100 Ml) 2 gm in 100 mls @ 200 mls/hr IV Q24HR [facility]; Protocol Last Admin: 11/08/21 10:40 Dose: 200 mls/hr NORepinephrine/NS 8 MG-250 ML (Norepinephrine/Ns 8 Mg-250 Ml (Double Conc)) 8 mg in 250 mls @ 3.75 mls/hr IV TITRATE [facility]; Protocol Last Titration: 11/07/21 08:45 Dose: Infused Vasopressin 20 unit/ Sodium (Chloride) 101 mls @ 9.09 mls/hr IV TITR [facility]; P rotocol Last Admin: 11/06/21 01:00 Dose: 0.03 units/min, 9.09 mls/hr Clindamycin HCl (Cleocin 900 Mg/50 Ml) 900 mg in 50 mls @ 100 mls/hr IV 0200,1000,1800 [facility]; Protocol Stop: 11/09/21 18:59 Last Admin: 11/08/21 10:40 Dose: 100 mls/hr Dextrose (D5w) 1,000 mls @ 75 mls/hr IV DIRECT [facility] Stop: 11/09/21 01:19 Last Admin: 11/08/21 15:27 Dose: 75 mls/hr Insulin Human Lispro (Insulin Lispro 100 Unit/Ml) 0 unit SUB-Q Q6HR [facility]; Protocol Last Admin: 11/08/21 15:15 Dose: Not Given Levothyroxine Sodium (Levothyroxine 125 Mcg Tab) 125 mcg PO DAILY@0600 [facility] Last Admin: 11/08/21 06:08 Dose: 125 mcg Magnesium Hydroxide (Magnesium Hydroxide (Mom) Oral Liqd Udc) 30 ml PO Q4H PRN PRN Reason: Constipation Multi-Ingred Cream/Lotion/Oil/Oint (Mineral Oil/Petrolatum, White Ophth Oint 3.5 Gm) 1 applic OU Q4HR PRN PRN Reason: Dry Eye(s) Ondansetron HCl (Ondansetron 4 Mg/2 Ml Inj) 4 mg IV Q8H PRN PRN Reason: Nausea And Vomiting Last Admin: 11/05/21 15:48 Dose: 4 mg Polyethylene Glycol (Polyethylene Glycol 3350 17 Gm Powder) 17 gm PO QDAY [facility] Last Admin: 11/08/21 15:27 Dose: 17 gm Potassium Chloride (Potassium Chloride 20 Meq Packet) 40 meq FEEDTUBE ONCE [facility] Last Admin: 11/08/21 15:27 Dose: 40 meq Senna (Sennosides Oral Liqd 8.8 Mg/5 Ml Oral Liqd) 17.6 mg PO Q12HR [facility] Simple Syrup (Simple Syrup 15 Ml) 15 ml FEEDTUBE PRN PRN PRN Reason: Hypoglycemia Simple Syrup (Simple Syrup 15 Ml) 30 ml FEEDTUBE PRN PRN PRN Reason: Hypoglycemia Sodium Bicarbonate (Sodium Bicarbonate 325 Mg Tab) 325 mg FEEDTUBE PRN PRN PRN Reason: For Clogged Feeding Tube Sodium Chloride (Sodium Chloride 0.9% 10 Ml Flush Syringe) 10 ml IV BID [facility] Last Admin: 11/08/21 10:40 Dose: 10 ml Sodium Chloride (Sodium Chloride 0.9% 10 Ml Flush Syringe) 10 ml IV PRN PRN PRN Reason: LINE FLUSH Review of Systems ROS unobtainable: due to endotracheal tube Physical Examination Last Vital Signs Temp 97.6 F 11/08/21 16:00 Pulse 91 H 11/08/21 17:11 Resp 17 11/08/21 17:11 BP 113/45 11/08/21 17:11 Pulse Ox 100 11/08/21 17:11 General appearance: other (intubated) HEENT: Positive: Normocephaly Neck: Positive: neck supple, trachea midline Cardiac: Positive: Reg Rate and Rhythm Lungs: Positive: Ventilated Respirations Neuro: Positive: Other (intubated) Abdomen: Positive: Soft Skin: Negative: Wound Musculoskeletal: No Fluid Collection Extremities: Present: lower extr. pulses, edema Results 11/08/21 Unknown 11/08/21 Unknown CBC 11/08/21 Range/Units Unknown WBC 10.1 (4.5-11.0) K/mm3 RBC 3.35 L (3.65-5.03) M/mm3 Hgb 7.5 L (10.1-14.3) gm/dl Hct 25.4 L (30.3-42.9) % Plt Count 145 (140-440) K/mm3 Comprehensive Metabolic Panel 11/08/21 Range/Units Unknown Sodium 154 H D (137-145) mmol/L Potassium 3.3 L (3.6-5.0) mmol/L Chloride 120.7 H (98-107) mmol/L Carbon Dioxide 20 L (22-30) mmol/L BUN 38 H (7-17) mg/dL Creatinine 0.7 (0.6-1.2) mg/dL Glucose 97 (65-100) mg/dL Calcium 8.3 L (8.4-10.2) mg/dL - Imaging and Cardiology Stress echo: report reviewed Echo: report reviewed, other Cardiac cath: report reviewed EKG interpretations - Telemetry EKG Rhythm: Sinus Rhythm Assessment and Plan Acute Respiratory Failure Septic Shock GBS Bacteremia Bilateral Pneumonia Bilateral Pleural Effusions Acute HFrEF Cardiomyopathy (EF reduced to 30-35% on echo this admission) Tn Elevation (?Type 2 IA in the setting of hypoxia & shock) Elevated LFTs (?shock liver) Anemia Hypernatremia Hypokalemia CAD s/p PCI (2004) CHB s/p PPM ([facility]) Hypothyroidism H/o HTN H/o DM Arthritis Plan: Echo reviewed - EF 30-35%, mild diastolic dysfunction, RV mildly dilated, moderate MR, moderate TR, moderate pulmonary HTN w/RVSP 49mmHg, no pericardial effusion, large left pleural effusion. Suspect volume overload in the setting of IV fluid resuscitation. Start gentle IV diuresis with strict I/Os and close monitoring of renal indices & electrolytes. May consider addition of inotrope therapy pending clinical response. Will start beta charleen when hemodynamically permissible. Not on ASA d/t allergy. Statin held in the setting of elevated LFTs. Obtain 12-lead ECG. Pt seen in conjunction with Dr. Rizo, who agrees with the assessment and plan of care.
[2021-11-08] MEDS: FUROSEMIDE 20 MG/2 ML INJ IV SCH (18:25)
[2021-11-08] MEDS: ACETAMINOPHEN 325 MG TAB PO PRN (22:49)
[2021-11-08] MEDS: SENNOSIDES ORAL LIQD 8.8 MG/5 ML ORAL LIQD PO SCH (23:17)
[2021-11-09] MEDS: INSULIN LISPRO 100 UNIT/ML SUB-Q SCH ×3 (00:51→21:00)
[2021-11-09] MEDS: HEPARIN 5,000 UNIT/1 ML VIAL SUB-Q SCH ×3 (01:56→21:01)
[2021-11-09 02:42] LABS: Mean Corpuscular HGB Conc 30 % (30-34); Mean Corpuscular Volume 76 fl (79-97); Platelet Count 146 K/mm3 (140-440); Red Blood Count 3.65 M/mm3 (3.65-5.03); Red Cell Distribution Width 19.9 % (13.2-15.2)
[2021-11-09 02:45] LABS: Hematocrit 27.6 % (30.3-42.9); Hemoglobin 8.1 gm/dl (10.1-14.3)
[2021-11-09 03:07] LABS: Alanine Aminotransferase 481 units/L (7-56); Albumin 2.8 g/dL (3.9-5); Blood Urea Nitrogen 33 mg/dL (7-17); Calcium 8.5 mg/dL (8.4-10.2); Hemolysis Index 2
[2021-11-09 03:34] LABS: ABG Base Excess -1.5 mmol/L (-2.0-3.0); ABG HCO3 21.7 mmol/L (20.0-26.0); ABG Methemoglobin 0.5 % (0.0-1.5); ABG Oxygen Saturation 98.5 % (95.0-99.0); ABG PCO2 29.9 mm Hg; ABG PH 7.479 pH Units (7.350-7.450); ABG PO2 121.3 mm Hg (80.0-90.0)
[2021-11-09 03:38] LABS: BUN/Creatinine Ratio 47
[2021-11-09] MEDS: FUROSEMIDE 20 MG/2 ML INJ IV SCH ×2 (05:00→21:01)
[2021-11-09] MEDS: LEVOTHYROXINE 125 MCG TAB PO SCH (05:01)
[2021-11-09] MEDS: SENNOSIDES ORAL LIQD 8.8 MG/5 ML ORAL LIQD PO SCH ×2 (10:10→21:02)
[2021-11-09] MEDS: POLYETHYLENE GLYCOL 3350 17 GM POWDER PO SCH (10:10)
[2021-11-09] MEDS: FAMOTIDINE 20 MG/2 ML INJ IV SCH (10:10)
[2021-11-09] MEDS: DOCUSATE SODIUM 100 MG/10 ML ORAL LIQD PO SCH ×2 (10:10→21:01)
[2021-11-09] MEDS: cefTRIAXone/NS 2 GM/100 ML 2 GM/100 ML BAG IV SCH (10:11)
--- NOTE | 2021-11-09 11:21 | Progress Note ---
<LONNIE MAURICE - Last Filed: 11/09/21 17:41> Assessment and Plan Assessment and plan: This is a 81-year-old female with known history of diabetes mellitus, hypertension, PPM, and arthritis admitted for sepsis and acute hypoxia respiratory failure 2/2 bilateral pneumonia requiring intubation and ventilatory support Hospital Course to date: 11/04/2021: Empiric therapy with iv levaquin/vancomycin. COVID PCR pending. Will consult ID. PCCM consulted, will follow recs. Hypotensive this AM, ordered bolus and fluids at 150 cc/hr. May require pressor support if bp does not improve. 11/05/2021: GBS on bcx +, currently on rocephin IV. Currently on bipap due to respiratory distress overnight. Worsening BL opacities on CXR. May be volume overload vs pneumonia. Unfortunately bp too low for lasix at this point. WIll continue levophed and bipap. Once able to tolerate, may do trial of albumin/lasi x. Call attempt made to Niraj, no response. Will try again tomorrow to update. 11/06/2021: Decompensated overnight requiring intubation. CXR shows worsening interstitial infiltrates. Currenlty on dopamine, levophed, vasopressin. PICC line ordered. Advised RN to place gamble for I/O monitoring. Would benefit from diuresis but very volume overloaded. Prognosis guarded 11/08: Off sedation this am, remains unresponsive only grimace to pain. Hold all sedatives agents for now, patient is off pressors this am. Hypernatremia from today's lab- D5W X1bag, and low K repleted, repeat lab in the am. Severe constipation also noted from KUB, BR added. 11/09: Sudden SPO2 drop in the 60s this am. Patient was manually bagged and deep suctioned. Patient is currently stable on the vent, repeat CXR with no significant change. D/w CCM Mucomyst and brochodilator added. Patient mentation is unchanged, continue to hold off on sedative agents. Neurology consulted. Assessment and Plan #Septic Shock POA #Bilateral Pneumonia #Bacteremia - Presented with fevers, leukocytosis, and hypotension - COVID PCR negative - 11/04 Bcult with 3/4 group B strep bacteremia - 11/05 Repeat Bculture pending - 11/04 2D Echo with no evidence of vegetation - ID on consult, appreciate recommendations - Continue current IV Abx per ID - F/u on culture data - Trend CBC #Acute Hypoxic Respiratory Failure 2/2 #Bilateral Pleural Effusion #Bilateral Pneumonia - COVID PCR negative - CXR shows Bilateral opacities, may be volume overloaded. - Intubated on 11/06 - Vent Setting:A/C-35%,6,16,350 - This am ABG noted - CCM consulted, appreciate recommendations - Continue IV ABx - VAP bundle addressed - Aspiration precaution HOB above 30 - PS trials when more awake - ABG and CXR er CCM - Continue SPO2 monitoring for SPO2 goal above 92% #CHF- EF 30-35% with PPM #Hypotension-improved #Septic Kristian - Was on 3 pressors initially - Off pressors this am - SR on the monitor, HR 70-90s - 11/04 Echo-EF 30-35% - Cardiology consulted - Continue blood pressure monitor per protocol - Maintain MAP above 65 #Acute Encephalopathy - Probably r/t sedation vs infectious process - Pt was on versed gtt, now D/c - Mentation unchanged - CT head noted - Will contine to monitor for now - Hold all sedatives agents - Neurology consulted #Acute Microcytic Anemia - s/p 1unit of PRBCs - H&H stable this am - trend h/h daily #Transaminitis/Shock Liver - Probably due to bacteria/spetic shock - Continue to Trend LFTs #DVT Prophylaxis - Continue AC- heparin subQ - SCDs to bilateral lower extremities while in bed The high probability of a clinically significant, sudden or life threatening deterioration of the [multi] system(s) required my full and direct attention, intervention and personal management. The aggregate critical care time was [60] minutes. This time is in addition to time spent performing reported procedures but includes the following: [x] Data Review and interpretation [x] Patient assessment and monitoring of vital signs [x] Documentation [x] Medication orders and management Disposition Plan: ICU Total Time Spent with Patient (Minutes): 60 History Interval history: Patient seen and examined at the bedside. Intubated, not on any sedation, only grimace to pain. Per RN patient desated into the 60s requiring manual bagging this am, patient was deep suction and placed back on the vent. Patient is currentlt stable SPO2 at 100%, no acute distress noted Hospitalist Physical - Constitutional Vitals: Temp Pulse Resp BP Pulse Ox 97.9 F 96 H 25 H 134/60 97 11/09/21 08:00 11/09/21 10:10 11/09/21 10:10 11/09/21 10:10 11/09/21 10:10 General appearance: Present: no acute distress, other (On the vent) - EENT Eyes: Present: PERRL - Respiratory Respiratory effort: normal Respiratory: bilateral: rhonchi - Cardiovascular Rhythm: regular Heart Sounds: Present: S1 & S2 - Extremities Extremities: no ischemia, pulses intact, pulses symmetrical Extremity abnormal: edema - Peripheral Assessment Generalized Edema Type: Non-pitting Edema Degree: 1+ Capillary Refill: < 3 seconds Skin Temperature: Warm Peripheral Pulses: within normal limits - Abdominal General gastrointestinal: soft, non-distended, normal bowel sounds - Integumentary Integumentary: Present: warm, dry - Psychiatric Psychiatric: other (CA[facility]) - Neurologic Neurologic: other (Unresponsive, only grimace to pain. Not on any sedation) - Allied Health Allied health notes reviewed: nursing HEART Score - HEART Score Troponin: Troponin T 0.033 ng/mL (0.00-0.029) H 11/05/21 06:11 Results - Labs CBC & Chem 7: 11/09/21 02:00 11/09/21 02:00 Labs: Laboratory Last Values WBC 14.5 K/mm3 (4.5-11.0) H 11/09/21 02:00 RBC 3.65 M/mm3 (3.65-5.03) 11/09/21 02:00 Hgb 8.1 gm/dl (10.1-14.3) L 11/09/21 02:00 Hct 27.6 % (30.3-42.9) L 11/09/21 02:00 MCV 76 fl (79-97) L 11/09/21 02:00 MCH 22 pg (28-32) L 11/09/21 02:00 MCHC 30 % (30-34) 11/09/21 02:00 RDW 19.9 % (13.2-15.2) H 11/09/21 02:00 Plt Count 146 K/mm3 (140-440) 11/09/21 02:00 Add Manual Diff Complete 11/06/21 15:50 Total Counted 100 11/06/21 15:50 Seg Neutrophils % Image Consultant 11/06/21 15:50 Seg Neuts % (Manual) 92.0 % (40.0-70.0) H 11/06/21 15:50 Band Neutrophils % 0 % 11/06/21 15:50 Lymphocytes % (Manual) 5.0 % (13.4-35.0) L 11/06/21 15:50 Reactive Lymphs % (Man) 0 % 11/06/21 15:50 Monocytes % (Manual) 3.0 % (0.0-7.3) 11/06/21 15:50 Eosinophils % (Manual) 0 % (0.0-4.3) 11/06/21 15:50 Basophils % (Manual) 0 % (0.0-1.8) 11/06/21 15:50 Metamyelocytes % 0 % 11/06/21 15:50 Myelocytes % 0 % 11/06/21 15:50 Promyelocytes % 0 % 11/06/21 15:50 Blast Cells % 0 % 11/06/21 15:50 Nucleated RBC % Not Reportable 11/06/21 15:50 Seg Neutrophils # Man 23.5 K/mm3 (1.8-7.7) H 11/06/21 15:50 Band Neutrophils # 0.0 K/mm3 11/06/21 15:50 Lymphocytes # (Manual) 1.3 K/mm3 (1.2-5.4) 11/06/21 15:50 Abs React Lymphs (Man) 0.0 K/mm3 11/06/21 15:50 Monocytes # (Manual) 0.8 K/mm3 (0.0-0.8) 11/06/21 15:50 Eosinophils # (Manual) 0.0 K/mm3 (0.0-0.4) 11/06/21 15:50 Basophils # (Manual) 0.0 K/mm3 (0.0-0.1) 11/06/21 15:50 Metamyelocytes # 0.0 K/mm3 11/06/21 15:50 Myelocytes # 0.0 K/mm3 11/06/21 15:50 Promyelocytes # 0.0 K/mm3 11/06/21 15:50 Blast Cells # 0.0 K/mm3 11/06/21 15:50 WBC Morphology Not Reportable 11/06/21 15:50 Hypersegmented Neuts Not Reportable 11/06/21 15:50 Hyposegmented Neuts Not Reportable 11/06/21 15:50 Hypogranular Neuts Not Reportable 11/06/21 15:50 Smudge Cells Not Reportable 11/06/21 15:50 Toxic Granulation Not Reportable 11/06/21 15:50 Toxic Vacuolation Not Reportable 11/06/21 15:50 Dohle Bodies Not Reportable 11/06/21 15:50 Pelger-Huet Anomaly Not Reportable 11/06/21 15:50 Irina Rods Not Reportable 11/06/21 15:50 Platelet Estimate Consistent w auto 11/06/21 15:50 Clumped Platelets Not Reportable 11/06/21 15:50 Plt Clumps, EDTA Not Reportable 11/06/21 15:50 Large Platelets Not Reportable 11/06/21 15:50 Giant Platelets Not Reportable 11/06/21 15:50 Platelet Satelliting Not Reportable 11/06/21 15:50 Plt Morphology Comment Not Reportable 11/06/21 15:50 RBC Morphology Not Reportable 11/06/21 15:50 Dimorphic RBCs Not Reportable 11/06/21 15:50 Polychromasia Not Reportable 11/06/21 15:50 Hypochromasia 2+ 11/06/21 15:50 Poikilocytosis Not Reportable 11/06/21 15:50 Anisocytosis 1+ 11/06/21 15:50 Microcytosis Not Reportable 11/06/21 15:50 Macrocytosis Not Reportable 11/06/21 15:50 Spherocytes Not Reportable 11/06/21 15:50 Pappenheimer Bodies Not Reportable 11/06/21 15:50 Sickle Cells Not Reportable 11/06/21 15:50 Target Cells Not Reportable 11/06/21 15:50 Tear Drop Cells Not Reportable 11/06/21 15:50 Ovalocytes Not Reportable 11/06/21 15:50 Helmet Cells Not Reportable 11/06/21 15:50 [place] Bodies Not Reportable 11/06/21 15:50 [place] Rings Not Reportable 11/06/21 15:50 [place] Cells Not Reportable 11/06/21 15:50 Bite Cells Not Reportable 11/06/21 15:50 Crenated Cell Not Reportable 11/06/21 15:50 Elliptocytes Not Reportable 11/06/21 15:50 Acanthocytes (Spur) Not Reportable 11/06/21 15:50 Rouleaux Not Reportable 11/06/21 15:50 Hemoglobin C Crystals Not Reportable 11/06/21 15:50 Schistocytes Not Reportable 11/06/21 15:50 Malaria parasites Not Reportable 11/06/21 15:50 Godfrey Bodies Not Reportable 11/06/21 15:50 Hem Pathologist Commnt No 11/06/21 15:50 PT 18.6 Sec. (12.2-14.9) H 11/03/21 22:32 INR 1.40 (0.87-1.13) H 11/03/21 22:32 APTT 28.9 Sec. (24.2-36.6) 11/03/21 22:32 D-Dimer 1494.53 ng/mlDDU (0-234) H 11/05/21 06:11 ABG pH 7.479 pH Units (7.350-7.450) H 11/09/21 02:31 ABG pCO2 29.9 mm Hg 11/09/21 02:31 ABG pO2 121.3 mm Hg (80.0-90.0) H 11/09/21 02:31 ABG HCO3 21.7 mmol/L (20.0-26.0) 11/09/21 02:31 ABG O2 Saturation 98.5 % (95.0-99.0) 11/09/21 02:31 ABG O2 Content 10.1 (0.0-44) 11/09/21 02:31 ABG Base Excess -1.5 mmol/L (-2.0-3.0) 11/09/21 02:31 ABG Hemoglobin 7.3 gm/dl (12.0-16.0) L 11/09/21 02:31 ABG Carboxyhemoglobin 1.9 % (0.0-5.0) 11/09/21 02:31 ABG Methemoglobin 0.5 % (0.0-1.5) 11/09/21 02:31 Oxyhemoglobin 96.2 % (95.0-99.0) 11/09/21 02:31 FiO2 35 % 11/09/21 02:31 Sodium 143 mmol/L (137-145) D 11/09/21 02:00 Potassium 3.6 mmol/L (3.6-5.0) 11/09/21 02:00 Chloride 112.5 mmol/L (98-107) H 11/09/21 02:00 Carbon Dioxide 22 mmol/L (22-30) 11/09/21 02:00 Anion Gap 12 mmol/L 11/09/21 02:00 BUN 33 mg/dL (7-17) H 11/09/21 02:00 Creatinine 0.7 mg/dL (0.6-1.2) 11/09/21 02:00 Estimated GFR > 60 ml/min 11/09/21 02:00 BUN/Creatinine Ratio 47 % 11/09/21 02:00 Glucose 161 mg/dL (65-100) H 11/09/21 02:00 POC Glucose 135 mg/dL (70-105) H 11/09/21 05:12 Lactic Acid 3.70 mmol/L (0.7-2.0) H* 11/03/21 22:32 Calcium 8.5 mg/dL (8.4-10.2) 11/09/21 02:00 Ferritin 52.6 ng/mL (10.0-200.0) 11/05/21 06:11 Total Bilirubin 0.30 mg/dL (0.1-1.2) 11/09/21 02:00 Direct Bilirubin < 0.2 mg/dL (0-0.2) 11/03/21 22:32 Indirect Bilirubin 0.2 mg/dL 11/03/21 22:32 AST 251 units/L (5-40) H 11/09/21 02:00 ALT 481 units/L (7-56) H 11/09/21 02:00 Alkaline Phosphatase 128 units/L (35-129) 11/09/21 02:00 Lactate Dehydrogenase 187 units/L (91-180) H 11/05/21 06:11 Troponin T 0.033 ng/mL (0.00-0.029) H 11/05/21 06:11 C-Reactive Protein 22.20 mg/dL (0.00-1.30) H 11/05/21 06:11 NT-Pro-B Natriuret Pep 7895 pg/mL (0-900) H 11/03/21 22:32 Total Protein 5.0 g/dL (6.3-8.2) L 11/09/21 02:00 Albumin 2.8 g/dL (3.9-5) L 11/09/21 02:00 Albumin/Globulin Ratio 1.3 % 11/09/21 02:00 Triglycerides 66 mg/dL (2-149) 11/03/21 22:32 Cholesterol 80 mg/dL (50-199) 11/03/21 22:32 LDL Cholesterol Direct 34 mg/dL (50-130) L 11/03/21 22:32 HDL Cholesterol 42 mg/dL (40-59) 11/03/21 22:32 Cholesterol/HDL Ratio 1.90 % 11/03/21 22:32 Coronavirus (PCR) Negative (Negative) 11/04/21 Unknown Blood Type O POSITIVE 11/03/21 23:57 Antibody Screen Negative 11/03/21 23:57 Crossmatch See Detail 11/03/21 23:57 Microbiology: Microbiology 11/04/21 15:03 Peripheral/Venous Blood Culture - Preliminary NO GROWTH AFTER 4 DAYS 11/04/21 15:03 Peripheral/Venous Blood Culture - Preliminary NO GROWTH AFTER 4 DAYS Gamble/IV: Voiding Method Indwelling Catheter Active Medications - Current Medications Current Medications: Generic Name Dose Route Start Last Admin Trade Name Freq PRN Reason Stop Dose Admin Acetaminophen 650 mg 11/04/21 02:03 11/08/21 22:49 Acetaminophen 325 Mg Tab PO 650 mg Q6H PRN Administration Pain MILD(1-3)/Fever >100.5/RODRIGUEZ Lipase/Protease/Amylase 1 each 11/08/21 11:09 Lipase 10,500/Protease 25,000/Amylase 43,750 (Units) Dr Lema FEEDTUBE PRN PRN For Clogged Feeding Tube Dextrose 50 ml 11/04/21 02:03 Dextrose 50% In Water (25gm) 50 Ml Syringe IV Q30MIN PRN Hypoglycemia Protocol Docusate Sodium 100 mg 11/08/21 12:00 11/09/21 10:10 Docusate Sodium 100 Mg/10 Ml Oral Liqd PO 100 mg BID YOSSI Administration Famotidine 20 mg 11/06/21 10:00 11/09/21 10:10 Famotidine 20 Mg/2 Ml Inj IV 20 mg DAILY YOSSI Administration Furosemide 20 mg 11/08/21 18:00 11/09/21 05:00 Furosemide 20 Mg/2 Ml Inj IV 20 mg 0600,1800 YOSSI Administration Heparin Sodium (Porcine) 5,000 unit 11/08/21 10:00 11/09/21 10:11 Heparin 5,000 Unit/1 Ml Vial SUB-Q 5,000 unit 0200,1000,1800 YOSSI Administration Hydrophilic Ointment 1 applic 11/06/21 04:02 Lip Therapy Vaseline TP Q2HR PRN Dry Lips Ceftriaxone Sodium 2 gm in 100 mls @ 200 mls/hr 11/04/21 15:00 11/09/21 10:11 Rocephin/Ns 2 Gm/100 Ml IV 200 mls/hr Q24HR YOSSI Administration Protocol NORepinephrine/NS 8 MG-250 ML 8 mg in 250 mls @ 3.75 mls/hr 11/05/21 09:00 11/07/21 08:45 Norepinephrine/Ns 8 Mg-250 Ml (Double Conc) IV Infused TITRATE YOSSI Titration Protocol 2 MCG/MIN Vasopressin 20 unit/ Sodium 101 mls @ 9.09 mls/hr 11/05/21 23:00 11/06/21 01:00 Chloride IV 0.03 units/min TITR YOSSI 9.09 mls/hr Administration Protocol 0.03 UNITS/MIN Clindamycin HCl 900 mg in 50 mls @ 100 mls/hr 11/08/21 02:00 11/09/21 01:56 Cleocin 900 Mg/50 Ml IV 11/09/21 18:59 100 mls/hr 0200,1000,1800 [facility] Administration Protocol Insulin Human Lispro 0 unit 11/06/21 12:00 11/09/21 05:35 Insulin Lispro 100 Unit/Ml SUB-Q Not Given Q6HR [facility] Protocol Levothyroxine Sodium 125 mcg 11/05/21 07:00 11/09/21 05:01 Levothyroxine 125 Mcg Tab PO 125 mcg DAILY@0600 [facility] Administration Magnesium Hydroxide 30 ml 11/04/21 02:03 Magnesium Hydroxide (Mom) Oral Liqd Udc PO Q4H PRN Constipation Multi-Ingred Cream/Lotion/Oil/Oint 1 applic 11/06/21 04:02 Mineral Oil/Petrolatum, White Ophth Oint 3.5 Gm OU Q4HR PRN Dry Eye(s) Ondansetron HCl 4 mg 11/04/21 02:03 11/05/21 15:48 Ondansetron 4 Mg/2 Ml Inj IV 4 mg Q8H PRN Administration Nausea And Vomiting Polyethylene Glycol 17 gm 11/08/21 12:00 11/09/21 10:10 Polyethylene Glycol 3350 17 Gm Powder PO 17 gm QDAY YOSSI Administration Potassium Chloride 40 meq 11/08/21 11:17 11/08/21 15:27 Potassium Chloride 20 Meq Packet FEEDTUBE 40 meq ONCE YOSSI Administration Senna 17.6 mg 11/08/21 22:00 11/09/21 10:10 Sennosides Oral Liqd 8.8 Mg/5 Ml Oral Liqd PO 17.6 mg Q12HR YOSSI Administration Simple Syrup 15 ml 11/08/21 11:09 Simple Syrup 15 Ml FEEDTUBE PRN PRN Hypoglycemia Simple Syrup 30 ml 11/08/21 11:09 Simple Syrup 15 Ml FEEDTUBE PRN PRN Hypoglycemia Sodium Bicarbonate 325 mg 11/08/21 11:09 Sodium Bicarbonate 325 Mg Tab FEEDTUBE PRN PRN For Clogged Feeding Tube Sodium Chloride 10 ml 11/04/21 10:00 11/08/21 22:19 Sodium Chloride 0.9% 10 Ml Flush Syringe IV 10 ml BID YOSSI Administration Sodium Chloride 10 ml 11/04/21 02:03 Sodium Chloride 0.9% 10 Ml Flush Syringe IV PRN PRN LINE FLUSH Nutrition/Malnutrition Assess - Dietary Evaluation Nutrition/Malnutrition Findings: Nutrition Notes Start: 11/04/21 17:16 Freq: Status: Active Protocol: Document 11/08/21 14:15 RS (Rec: 11/08/21 14:29 RS [id number]) Nutrition Notes Need for Assessment generated from: MD Order Initial or Follow up Reassessment Current Diagnosis Diabetes,Hypertension, Respiratory Failure Other Pertinent Diagnosis COVID-19 pui, Bilateral Pneumonia, Acute Anemia. Current Diet Vital AF Labs/Tests Na:154 K+: 3.3 Cl: 120.7 CO2: 20 BUN:38 Pertinent Medications norepineprine Height 5 ft Weight 58.967 kg [place] Body Weight (kg) 45.45 BMI 25.4 Weight Status Appropriate Subjective/Other Information MD consult for TF. Pt is intubated on vent; no skin breakdown noted. Percent of energy/protein needs met: 0% Current % PO Negligible Minimum of two criteria No Energy Intake (non-severe) <75% Estimated Energy Requirement >7 days #1 Nutrition Diagnosis Inadequate oral intake Etiology on mechanical vent As Evidenced by Signs and Symptoms pt NPO Is patient on ventilator? Yes Is Patient Ambulatory and/or Out of Bed No REE-([place]-St. Jeor-confined to bed) 1166.664 Kcal/Kg value to use for calculation 29 Approximate Energy Requirements Using 1710 kcal/Kg Calculation Used for Recommendations Kcal/kg Additional Notes Protein needs: 70-118g/day (1. 2-2g/kg BW/day) Fluid needs: 1mL/kcal Nutrition Intervention Change Diet Order: Vital AF at 60ml/hr Nutrition Support: Initiate Vital AF at 10mL/hr and increase rate by 10mL q8hr until goal rate of 60mL/hr is achieved. Free water flush of 250mL q4hr until hypernatremia is resolved. Free water flush of 100mL q4hr once hypernatremia is resolved. Kcal 1,728 Protein (gm) 108 Fluid (mL) 1,167 Goal #1 Meet at least 75% of kcal/PRO needs via TF Follow-Up By: 11/10/21 Additional Comments F/U for intiatiation of TF/TF tolerance <LEAH ALFONSO - Last Filed: 11/10/21 07:16> Assessment and Plan Assessment and plan: I saw and evaluated the patient. I agree with the findings and the plan of care as documented in the Nurse Practitioner's~note, with the following corrections and additions. Hospitalist Physical - Constitutional Vitals: Temp Pulse Resp BP Pulse Ox 98.7 F 95 H 23 130/63 100 11/10/21 04:00 11/10/21 05:20 11/10/21 05:20 11/10/21 05:20 11/10/21 05:20 HEART Score - HEART Score Troponin: Troponin T 0.033 ng/mL (0.00-0.029) H 11/05/21 06:11 Results - Labs CBC & Chem 7: 11/10/21 04:00 11/10/21 04:00 Labs: Laboratory Last Values WBC 16.0 K/mm3 (4.5-11.0) H 11/10/21 04:00 RBC 3.61 M/mm3 (3.65-5.03) L 11/10/21 04:00 Hgb 8.0 gm/dl (10.1-14.3) L 11/10/21 04:00 Hct 27.1 % (30.3-42.9) L 11/10/21 04:00 MCV 75 fl (79-97) L 11/10/21 04:00 MCH 22 pg (28-32) L 11/10/21 04:00 MCHC 30 % (30-34) 11/10/21 04:00 RDW 20.4 % (13.2-15.2) H 11/10/21 04:00 Plt Count 144 K/mm3 (140-440) 11/10/21 04:00 Add Manual Diff Complete 11/06/21 15:50 Total Counted 100 11/06/21 15:50 Seg Neutrophils % Image Consultant 11/06/21 15:50 Seg Neuts % (Manual) 92.0 % (40.0-70.0) H 11/06/21 15:50 Band Neutrophils % 0 % 11/06/21 15:50 Lymphocytes % (Manual) 5.0 % (13.4-35.0) L 11/06/21 15:50 Reactive Lymphs % (Man) 0 % 11/06/21 15:50 Monocytes % (Manual) 3.0 % (0.0-7.3) 11/06/21 15:50 Eosinophils % (Manual) 0 % (0.0-4.3) 11/06/21 15:50 Basophils % (Manual) 0 % (0.0-1.8) 11/06/21 15:50 Metamyelocytes % 0 % 11/06/21 15:50 Myelocytes % 0 % 11/06/21 15:50 Promyelocytes % 0 % 11/06/21 15:50 Blast Cells % 0 % 11/06/21 15:50 Nucleated RBC % Not Reportable 11/06/21 15:50 Seg Neutrophils # Man 23.5 K/mm3 (1.8-7.7) H 11/06/21 15:50 Band Neutrophils # 0.0 K/mm3 11/06/21 15:50 Lymphocytes # (Manual) 1.3 K/mm3 (1.2-5.4) 11/06/21 15:50 Abs React Lymphs (Man) 0.0 K/mm3 11/06/21 15:50 Monocytes # (Manual) 0.8 K/mm3 (0.0-0.8) 11/06/21 15:50 Eosinophils # (Manual) 0.0 K/mm3 (0.0-0.4) 11/06/21 15:50 Basophils # (Manual) 0.0 K/mm3 (0.0-0.1) 11/06/21 15:50 Metamyelocytes # 0.0 K/mm3 11/06/21 15:50 Myelocytes # 0.0 K/mm3 11/06/21 15:50 Promyelocytes # 0.0 K/mm3 11/06/21 15:50 Blast Cells # 0.0 K/mm3 11/06/21 15:50 WBC Morphology Not Reportable 11/06/21 15:50 Hypersegmented Neuts Not Reportable 11/06/21 15:50 Hyposegmented Neuts Not Reportable 11/06/21 15:50 Hypogranular Neuts Not Reportable 11/06/21 15:50 Smudge Cells Not Reportable 11/06/21 15:50 Toxic Granulation Not Reportable 11/06/21 15:50 Toxic Vacuolation Not Reportable 11/06/21 15:50 Dohle Bodies Not Reportable 11/06/21 15:50 Pelger-Huet Anomaly Not Reportable 11/06/21 15:50 Irina Rods Not Reportable 11/06/21 15:50 Platelet Estimate Consistent w auto 11/06/21 15:50 Clumped Platelets Not Reportable 11/06/21 15:50 Plt Clumps, EDTA Not Reportable 11/06/21 15:50 Large Platelets Not Reportable 11/06/21 15:50 Giant Platelets Not Reportable 11/06/21 15:50 Platelet Satelliting Not Reportable 11/06/21 15:50 Plt Morphology Comment Not Reportable 11/06/21 15:50 RBC Morphology Not Reportable 11/06/21 15:50 Dimorphic RBCs Not Reportable 11/06/21 15:50 Polychromasia Not Reportable 11/06/21 15:50 Hypochromasia 2+ 11/06/21 15:50 Poikilocytosis Not Reportable 11/06/21 15:50 Anisocytosis 1+ 11/06/21 15:50 Microcytosis Not Reportable 11/06/21 15:50 Macrocytosis Not Reportable 11/06/21 15:50 Spherocytes Not Reportable 11/06/21 15:50 Pappenheimer Bodies Not Reportable 11/06/21 15:50 Sickle Cells Not Reportable 11/06/21 15:50 Target Cells Not Reportable 11/06/21 15:50 Tear Drop Cells Not Reportable 11/06/21 15:50 Ovalocytes Not Reportable 11/06/21 15:50 Helmet Cells Not Reportable 11/06/21 15:50 [place] Bodies Not Reportable 11/06/21 15:50 [place] Rings Not Reportable 11/06/21 15:50 [place] Cells Not Reportable 11/06/21 15:50 Bite Cells Not Reportable 11/06/21 15:50 Crenated Cell Not Reportable 11/06/21 15:50 Elliptocytes Not Reportable 11/06/21 15:50 Acanthocytes (Spur) Not Reportable 11/06/21 15:50 Rouleaux Not Reportable 11/06/21 15:50 Hemoglobin C Crystals Not Reportable 11/06/21 15:50 Schistocytes Not Reportable 11/06/21 15:50 Malaria parasites Not Reportable 11/06/21 15:50 Godfrey Bodies Not Reportable 11/06/21 15:50 Hem Pathologist Commnt No 11/06/21 15:50 PT 18.6 Sec. (12.2-14.9) H 11/03/21 22:32 INR 1.40 (0.87-1.13) H 11/03/21 22:32 APTT 28.9 Sec. (24.2-36.6) 11/03/21 22:32 D-Dimer 1494.53 ng/mlDDU (0-234) H 11/05/21 06:11 ABG pH 7.479 pH Units (7.350-7.450) H 11/09/21 02:31 ABG pCO2 29.9 mm Hg 11/09/21 02:31 ABG pO2 121.3 mm Hg (80.0-90.0) H 11/09/21 02:31 ABG HCO3 21.7 mmol/L (20.0-26.0) 11/09/21 02:31 ABG O2 Saturation 98.5 % (95.0-99.0) 11/09/21 02:31 ABG O2 Content 10.1 (0.0-44) 11/09/21 02:31 ABG Base Excess -1.5 mmol/L (-2.0-3.0) 11/09/21 02:31 ABG Hemoglobin 7.3 gm/dl (12.0-16.0) L 11/09/21 02:31 ABG Carboxyhemoglobin 1.9 % (0.0-5.0) 11/09/21 02:31 ABG Methemoglobin 0.5 % (0.0-1.5) 11/09/21 02:31 Oxyhemoglobin 96.2 % (95.0-99.0) 11/09/21 02:31 FiO2 35 % 11/09/21 02:31 Sodium 149 mmol/L (137-145) H 11/10/21 04:00 Potassium 3.9 mmol/L (3.6-5.0) 11/10/21 04:00 Chloride 114.1 mmol/L (98-107) H 11/10/21 04:00 Carbon Dioxide 23 mmol/L (22-30) 11/10/21 04:00 Anion Gap 16 mmol/L 11/10/21 04:00 BUN 31 mg/dL (7-17) H 11/10/21 04:00 Creatinine 0.6 mg/dL (0.6-1.2) 11/10/21 04:00 Estimated GFR > 60 ml/min 11/10/21 04:00 BUN/Creatinine Ratio 52 % 11/10/21 04:00 Glucose 148 mg/dL (65-100) H 11/10/21 04:00 POC Glucose 132 mg/dL (70-105) H 11/10/21 05:35 Lactic Acid 3.70 mmol/L (0.7-2.0) H* 11/03/21 22:32 Calcium 8.2 mg/dL (8.4-10.2) L 11/10/21 04:00 Phosphorus 2.60 mg/dL (2.5-4.5) 11/10/21 04:00 Magnesium 1.70 mg/dL (1.7-2.3) 11/10/21 04:00 Ferritin 52.6 ng/mL (10.0-200.0) 11/05/21 06:11 Total Bilirubin 0.30 mg/dL (0.1-1.2) 11/09/21 02:00 Direct Bilirubin < 0.2 mg/dL (0-0.2) 11/03/21 22:32 Indirect Bilirubin 0.2 mg/dL 11/03/21 22:32 AST 251 units/L (5-40) H 11/09/21 02:00 ALT 481 units/L (7-56) H 11/09/21 02:00 Alkaline Phosphatase 128 units/L (35-129) 11/09/21 02:00 Lactate Dehydrogenase 187 units/L (91-180) H 11/05/21 06:11 Troponin T 0.033 ng/mL (0.00-0.029) H 11/05/21 06:11 C-Reactive Protein 22.20 mg/dL (0.00-1.30) H 11/05/21 06:11 NT-Pro-B Natriuret Pep 7895 pg/mL (0-900) H 11/03/21 22:32 Total Protein 5.0 g/dL (6.3-8.2) L 11/09/21 02:00 Albumin 2.8 g/dL (3.9-5) L 11/09/21 02:00 Albumin/Globulin Ratio 1.3 % 11/09/21 02:00 Triglycerides 66 mg/dL (2-149) 11/03/21 22:32 Cholesterol 80 mg/dL (50-199) 11/03/21 22:32 LDL Cholesterol Direct 34 mg/dL (50-130) L 11/03/21 22:32 HDL Cholesterol 42 mg/dL (40-59) 11/03/21 22:32 Cholesterol/HDL Ratio 1.90 % 11/03/21 22:32 Coronavirus (PCR) Negative (Negative) 11/04/21 Unknown Blood Type O POSITIVE 11/03/21 23:57 Antibody Screen Negative 11/03/21 23:57 Crossmatch See Detail 11/03/21 23:57 Microbiology: Microbiology 11/04/21 15:03 Peripheral/Venous Blood Culture - Final NO GROWTH AFTER 5 DAYS 11/04/21 15:03 Peripheral/Venous Blood Culture - Final NO GROWTH AFTER 5 DAYS [facility]/IV: Voiding Method Indwelling Catheter Active Medications - Current Medications Current Medications: Generic Name Dose Route Start Last Admin Trade Name Freq PRN Reason Stop Dose Admin Acetaminophen 650 mg 11/04/21 02:03 11/08/21 22:49 Acetaminophen 325 Mg Tab PO 650 mg Q6H PRN Administration Pain MILD(1-3)/Fever >100.5/RODRIGUEZ Acetylcysteine 200 mg 11/10/21 00:00 Acetylcysteine 20% 200 Mg/1 Ml *For Inhalation Use* INHALATION Q8HRT YOSSI Albuterol 2.5 mg 11/10/21 00:00 11/09/21 23:08 Albuterol 2.5 Mg/3 Ml Nebu IH 2.5 mg Q8HRT YOSSI Administration Lipase/Protease/Amylase 1 each 11/08/21 11:09 Lipase 10,500/Protease 25,000/Amylase 43,750 (Units) Dr Lema FEEDTUBE PRN PRN For Clogged Feeding Tube Dextrose 50 ml 11/04/21 02:03 Dextrose 50% In Water (25gm) 50 Ml Syringe IV Q30MIN PRN Hypoglycemia Protocol Docusate Sodium 100 mg 11/08/21 12:00 11/09/21 21:01 Docusate Sodium 100 Mg/10 Ml Oral Liqd PO 100 mg BID YOSSI Administration Famotidine 20 mg 11/06/21 10:00 11/09/21 10:10 Famotidine 20 Mg/2 Ml Inj IV 20 mg DAILY YOSSI Administration Furosemide 20 mg 11/08/21 18:00 11/10/21 05:27 Furosemide 20 Mg/2 Ml Inj IV 20 mg 0600,1800 YOSSI Administration Heparin Sodium (Porcine) 5,000 unit 11/08/21 10:00 11/10/21 02:32 Heparin 5,000 Unit/1 Ml Vial SUB-Q 5,000 unit 0200,1000,1800 YOSSI Administration Hydrophilic Ointment 1 applic 11/06/21 04:02 Lip Therapy Vaseline TP Q2HR PRN Dry Lips Ceftriaxone Sodium 2 gm in 100 mls @ 200 mls/hr 11/04/21 15:00 11/09/21 10:11 Rocephin/Ns 2 Gm/100 Ml IV 200 mls/hr Q24HR YOSSI Administration Protocol NORepinephrine/NS 8 MG-250 ML 8 mg in 250 mls @ 3.75 mls/hr 11/05/21 09:00 11/07/21 08:45 Norepinephrine/Ns 8 Mg-250 Ml (Double Conc) IV Infused TITRATE YOSSI Titration Protocol 2 MCG/MIN Vasopressin 20 unit/ Sodium 101 mls @ 9.09 mls/hr 11/05/21 23:00 11/06/21 01:00 Chloride IV 0.03 units/min TITR YOSSI 9.09 mls/hr Administration Protocol 0.03 UNITS/MIN Insulin Human Lispro 0 unit 11/06/21 12:00 11/10/21 06:12 Insulin Lispro 100 Unit/Ml SUB-Q Not Given Q6HR [facility] Protocol Levothyroxine Sodium 125 mcg 11/05/21 07:00 11/10/21 06:13 Levothyroxine 125 Mcg Tab PO 125 mcg DAILY@0600 YOSSI Administration Magnesium Hydroxide 30 ml 11/04/21 02:03 Magnesium Hydroxide (Mom) Oral Liqd Udc PO Q4H PRN Constipation Metoprolol Tartrate 12.5 mg 11/09/21 22:00 11/09/21 21:02 Metoprolol Tartrate 25 Mg Tab PO 12.5 mg BID YOSSI Administration Multi-Ingred Cream/Lotion/Oil/Oint 1 applic 11/06/21 04:02 Mineral Oil/Petrolatum, White Ophth Oint 3.5 Gm OU Q4HR PRN Dry Eye(s) Ondansetron HCl 4 mg 11/04/21 02:03 11/05/21 15:48 Ondansetron 4 Mg/2 Ml Inj IV 4 mg Q8H PRN Administration Nausea And Vomiting Polyethylene Glycol 17 gm 11/08/21 12:00 11/09/21 10:10 Polyethylene Glycol 3350 17 Gm Powder PO 17 gm QDAY YOSSI Administration Potassium Chloride 40 meq 11/08/21 11:17 11/08/21 15:27 Potassium Chloride 20 Meq Packet FEEDTUBE 40 meq ONCE YOSSI Administration Senna 17.6 mg 11/08/21 22:00 11/09/21 21:02 Sennosides Oral Liqd 8.8 Mg/5 Ml Oral Liqd PO 17.6 mg Q12HR YOSSI Administration Simple Syrup 15 ml 11/08/21 11:09 Simple Syrup 15 Ml FEEDTUBE PRN PRN Hypoglycemia Simple Syrup 30 ml 11/08/21 11:09 Simple Syrup 15 Ml FEEDTUBE PRN PRN Hypoglycemia Sodium Bicarbonate 325 mg 11/08/21 11:09 Sodium Bicarbonate 325 Mg Tab FEEDTUBE PRN PRN For Clogged Feeding Tube Sodium Chloride 10 ml 11/04/21 10:00 11/09/21 21:02 Sodium Chloride 0.9% 10 Ml Flush Syringe IV 10 ml BID YOSSI Administration Sodium Chloride 10 ml 11/04/21 02:03 Sodium Chloride 0.9% 10 Ml Flush Syringe IV PRN PRN LINE FLUSH Nutrition/Malnutrition Assess - Dietary Evaluation Nutrition/Malnutrition Findings: Nutrition Notes Start: 11/04/21 17:16 Freq: Status: Active Protocol: Document 11/08/21 14:15 RS (Rec: 11/08/21 14:29 RS [id number]) Nutrition Notes Need for Assessment generated from: MD Order Initial or Follow up Reassessment Current Diagnosis Diabetes,Hypertension, Respiratory Failure Other Pertinent Diagnosis COVID-19 pui, Bilateral Pneumonia, Acute Anemia. Current Diet Vital AF Labs/Tests Na:154 K+: 3.3 Cl: 120.7 CO2: 20 BUN:38 Pertinent Medications norepineprine Height 5 ft Weight 58.967 kg [place] Body Weight (kg) 45.45 BMI 25.4 Weight Status Appropriate Subjective/Other Information MD consult for TF. Pt is intubated on vent; no skin breakdown noted. Percent of energy/protein needs met: 0% Current % PO Negligible Minimum of two criteria No Energy Intake (non-severe) <75% Estimated Energy Requirement >7 days #1 Nutrition Diagnosis Inadequate oral intake Etiology on mechanical vent As Evidenced by Signs and Symptoms pt NPO Is patient on ventilator? Yes Is Patient Ambulatory and/or Out of Bed No REE-([facility]-confined to bed) 1166.664 Kcal/Kg value to use for calculation 29 Approximate Energy Requirements Using 1710 kcal/Kg Calculation Used for Recommendations Kcal/kg Additional Notes Protein needs: 70-118g/day (1. 2-2g/kg BW/day) Fluid needs: 1mL/kcal Nutrition Intervention Change Diet Order: Vital AF at 60ml/hr Nutrition Support: Initiate Vital AF at 10mL/hr and increase rate by 10mL q8hr until goal rate of 60mL/hr is achieved. Free water flush of 250mL q4hr until hypernatremia is resolved. Free water flush of 100mL q4hr once hypernatremia is resolved. Kcal 1,728 Protein (gm) 108 Fluid (mL) 1,167 Goal #1 Meet at least 75% of kcal/PRO needs via TF Follow-Up By: 11/10/21 Additional Comments F/U for intiatiation of TF/TF tolerance
--- NOTE | 2021-11-09 12:17 | XRay Report ---
CHEST 1 VIEW INDICATION / CLINICAL INFORMATION: Hypoxia. COMPARISON: 11/06/2021 FINDINGS: SUPPORT DEVICES: Unchanged. HEART / MEDIASTINUM: Stable. LUNGS / PLEURA: No significant interval change in severity or distribution of airspace opacities. No pneumothorax. ADDITIONAL FINDINGS: No significant additional findings. IMPRESSION: 1. No significant change. Signer Name: Fan Khan MD Signed: 11/09/2021 12:13 PM Workstation Name: [id number]
--- NOTE | 2021-11-09 18:26 | Progress Note ---
Assessment and Plan Acute Respiratory Failure Septic Shock GBS Bacteremia Bilateral Pneumonia Bilateral Pleural Effusions Acute HFrEF Cardiomyopathy (EF reduced to 30-35% on echo this admission) NSVT Tn Elevation (?Type 2 SD in the setting of hypoxia & shock) Elevated LFTs (?shock liver) Anemia Hypokalemia CAD s/p PCI (2004) CHB s/p PPM ([facility]) Hypothyroidism H/o HTN H/o DM Arthritis Plan: Echo reviewed - EF 30-35%, mild diastolic dysfunction, RV mildly dilated, moderate MR, moderate TR, moderate pulmonary HTN w/RVSP 49mmHg, no pericardial effusion, large left pleural effusion. Suspect volume overload in the setting of IV fluid resuscitation. Continue gentle IV diuresis with strict I/Os and close monitoring of renal indices & electrolytes. Check Mg. Start Lopressor 12.5mg BID. Not on ASA d/t allergy. Statin held in the setting of elevated LFTs. 12-lead ECG pending. Pt seen in conjunction with Dr. Rizo, who agrees with the assessment and plan of care. - Patient Problems (1) Acute respiratory failure with hypoxia Current Visit: Yes Status: Acute Subjective Date of service: 11/09/21 Principal diagnosis: HFrEF Interval history: 2800mL UOP noted / 24 hrs. Tele reviewed - SR 90-100s with frequent NSVT. Objective Last Vital Signs Temp 98.3 F 11/09/21 12:00 Pulse 104 H 11/09/21 15:46 Resp 24 11/09/21 15:40 BP 132/88 11/09/21 15:46 Pulse Ox 100 11/09/21 15:46 - Physical Examination General: Other (intubated) Cardiac: Positive: Reg Rate and Rhythm Lungs: Positive: Ventilated Respirations Neuro: Positive: Other (intubated) Abdomen: Positive: Soft Skin: Negative: Wound Extremities: Present: lower extr. pulses, edema - Labs and Meds Cardiac Enzymes 11/09/21 Range/Units 02:00 AST 251 H (5-40) units/L CBC 11/09/21 Range/Units 02:00 WBC 14.5 H (4.5-11.0) K/mm3 RBC 3.65 (3.65-5.03) M/mm3 Hgb 8.1 L (10.1-14.3) gm/dl Hct 27.6 L (30.3-42.9) % Plt Count 146 (140-440) K/mm3 Comprehensive Metabolic Panel 11/09/21 Range/Units 02:00 Sodium 143 D (137-145) mmol/L Potassium 3.6 (3.6-5.0) mmol/L Chloride 112.5 H (98-107) mmol/L Carbon Dioxide 22 (22-30) mmol/L BUN 33 H (7-17) mg/dL Creatinine 0.7 (0.6-1.2) mg/dL Glucose 161 H (65-100) mg/dL Calcium 8.5 (8.4-10.2) mg/dL AST 251 H (5-40) units/L ALT 481 H (7-56) units/L Alkaline Phosphatase 128 (35-129) units/L Total Protein 5.0 L (6.3-8.2) g/dL Albumin 2.8 L (3.9-5) g/dL - Imaging and Cardiology EKG: report reviewed, image reviewed Stress echo: report reviewed Echo: report reviewed Cardiac cath: report reviewed - Telemetry EKG Rhythm: Sinus Rhythm - Allied health notes Allied health notes reviewed: nursing
--- NOTE | 2021-11-09 18:53 | Progress Note ---
Assessment and Plan Severe Sepsis POA vs septic shock- 11/03/2021 blood culture: 2 sets positive for GPC Acute respiratory failure with hypoxia, now on MVS Acute microcytic anemia Bilateral pneumonia Left pleural effusion Cardiomyopathy EF 30-35% Moderate pulmonary HTN RVSP 49 Continue to hold all sedation Ultrasound of the right chest wall to evaluate the pleural effusion- on imaging the effusion appears less but she has a worsening of the alveolar infitrates Get tracheal aspirate for cultures Antibiotics per ID, if she decompensates overnight or needs vasopressor support will broaden antibiotics Enteric nutritional support, free water flushes for hypernatremia Monitor electrolytes and address as indicated Adjust minute ventilation- she is has alkalosis on ABGs - continue to titrate supplemental oxygen to keep SPO2 88-90% - VAP bundle addressed, aspiration precautions - continue bronchodilators with pulmonary hygiene per RT - avoid nephrotoxins, renally dose all medications - Accuchecks with glycemic control per SSI (While critically ill target blood glucose of 140-180 mg/dL; avoid hypoglycemia) - sedation prn for target RASS 0 to -1 - continue to avoid benzodiazepines, reduce the possibility of delirium -antibiotics per ID- BCx positive for beta hemolytic strep, follow up cultures no growth to date - prn analgesia per CPOT score - Maintenance of sleep-wake cycle, avoid delirium - Stress and VTE prophylaxis - mobility, off loading and frequent turning to prevent pressure ulcer - Monitor hemodynamics closely - continue other care per attending / other consultants COVID SPECIFIC INTERVENTIONS - Negative CONDITION: CRITICAL PROGNOSIS: GUARDED CODE STATUS: FULL CODE The high probability of a clinically significant, sudden or life-threatening deterioration of the [respiratory, cardiovascular and hematologic] system(s) required my full and direct attention, intervention and personal management. The aggregate critical care time was [35] minutes without overlap. Time includes spent on; [x] Data Review and interpretation [x] Patient assessment and monitoring of vital signs [x] Documentation [x] Medication orders and management Subjective Date of service: 11/09/21 Principal diagnosis: HFrEF Interval history: Follow up fro acute hypoxemic resp failure; Septic and cardiogenic shock; severe anemia; Patient seen and examined. Vitals, labs, medications, chart and imaging reviewed. Discussed with respiratory and nursing care staff. Sudden SPO2 drop in the 60s this am. Patient was manually bagged and deep suctioned. Remains on minimal vent setting, she has worsening WCC and she has worsening alveoalr infiltrates on imaging She remains unresponsive and has been off Midazolam for 24 hours Objective Vital Signs - 12hr 11/09/21 11/09/21 11/09/21 07:00 07:10 07:20 Temperature Pulse Rate 93 H 94 H 92 H Pulse Rate [ From Monitor] Respiratory 21 22 24 Rate Blood Pressure 121/69 121/69 132/65 O2 Sat by Pulse 100 100 99 Oximetry 11/09/21 11/09/21 11/09/21 07:30 07:40 07:50 Temperature Pulse Rate 90 92 H 91 H Pulse Rate [ From Monitor] Respiratory 21 26 H 16 Rate Blood Pressure 126/60 126/60 132/65 O2 Sat by Pulse 99 100 99 Oximetry 11/09/21 11/09/21 11/09/21 08:00 08:10 08:20 Temperature 97.9 F Pulse Rate 91 H 92 H 100 H Pulse Rate [ 79 From Monitor] Respiratory 19 19 16 Rate Blood Pressure 127/63 127/63 127/70 O2 Sat by Pulse 99 99 96 Oximetry 11/09/21 11/09/21 11/09/21 08:30 08:38 08:40 Temperature Pulse Rate 107 H 94 H 95 H Pulse Rate [ From Monitor] Respiratory 14 14 Rate Blood Pressure 146/72 146/72 146/72 O2 Sat by Pulse 88 100 100 Oximetry 11/09/21 11/09/21 11/09/21 08:50 09:00 09:10 Temperature Pulse Rate 103 H 106 H 108 H Pulse Rate [ From Monitor] Respiratory 12 15 26 H Rate Blood Pressure 128/64 141/76 141/76 O2 Sat by Pulse 97 98 99 Oximetry 11/09/21 11/09/21 11/09/21 09:20 09:30 09:40 Temperature Pulse Rate 106 H 99 H 98 H Pulse Rate [ From Monitor] Respiratory 18 30 H 26 H Rate Blood Pressure 135/75 134/68 134/68 O2 Sat by Pulse 95 96 96 Oximetry 11/09/21 11/09/21 11/09/21 09:50 10:00 10:10 Temperature Pulse Rate 101 H 97 H 96 H Pulse Rate [ From Monitor] Respiratory 26 H 25 H 25 H Rate Blood Pressure 130/69 134/60 134/60 O2 Sat by Pulse 97 97 97 Oximetry 11/09/21 11/09/21 11/09/21 10:20 10:30 10:40 Temperature Pulse Rate 96 H 97 H 101 H Pulse Rate [ From Monitor] Respiratory 21 17 17 Rate Blood Pressure 131/59 137/67 137/67 O2 Sat by Pulse 100 100 100 Oximetry 11/09/21 11/09/21 11/09/21 10:50 11:00 11:10 Temperature Pulse Rate 96 H 94 H 94 H Pulse Rate [ From Monitor] Respiratory 23 20 18 Rate Blood Pressure 135/65 138/67 138/67 O2 Sat by Pulse 100 100 100 Oximetry 11/09/21 11/09/21 11/09/21 11:20 11:30 11:40 Temperature Pulse Rate 93 H 89 96 H Pulse Rate [ From Monitor] Respiratory 27 H 18 21 Rate Blood Pressure 125/65 120/60 120/60 O2 Sat by Pulse 100 100 100 Oximetry 11/09/21 11/09/21 11/09/21 11:50 12:00 12:10 Temperature 98.3 F Pulse Rate 98 H 96 H 95 H Pulse Rate [ 79 From Monitor] Respiratory 22 30 H 26 H Rate Blood Pressure 126/82 146/79 146/79 O2 Sat by Pulse 98 96 96 Oximetry 11/09/21 11/09/21 11/09/21 12:20 12:30 12:40 Temperature Pulse Rate 90 83 84 Pulse Rate [ From Monitor] Respiratory 19 19 20 Rate Blood Pressure 141/66 122/54 122/54 O2 Sat by Pulse 97 96 95 Oximetry 11/09/21 11/09/21 11/09/21 12:50 12:56 13:00 Temperature Pulse Rate 100 H 88 101 H Pulse Rate [ From Monitor] Respiratory 29 H 25 H Rate Blood Pressure 141/74 141/74 153/82 O2 Sat by Pulse 95 100 97 Oximetry 11/09/21 11/09/21 11/09/21 13:02 13:10 13:20 Temperature Pulse Rate 95 H 100 H Pulse Rate [ From Monitor] Respiratory 20 29 H 21 Rate Blood Pressure 153/82 157/65 O2 Sat by Pulse 100 94 86 Oximetry 11/09/21 11/09/21 11/09/21 13:30 13:40 13:50 Temperature Pulse Rate 101 H 100 H 94 H Pulse Rate [ From Monitor] Respiratory 25 H 16 24 Rate Blood Pressure 130/74 130/74 145/69 O2 Sat by Pulse 92 85 79 L Oximetry 01/11/09/21 11/09/21 14:00 14:10 14:20 Temperature Pulse Rate 90 85 96 H Pulse Rate [ From Monitor] Respiratory 22 17 25 H Rate Blood Pressure 122/56 122/56 126/65 O2 Sat by Pulse 88 97 100 Oximetry 11/09/21 11/09/21 11/09/21 14:30 14:40 14:50 Temperature Pulse Rate 99 H 90 94 H Pulse Rate [ From Monitor] Respiratory 22 19 27 H Rate Blood Pressure 145/67 145/67 130/72 O2 Sat by Pulse 99 100 100 Oximetry 11/09/21 11/09/21 11/09/21 15:00 15:10 15:20 Temperature Pulse Rate 94 H 95 H 91 H Pulse Rate [ From Monitor] Respiratory 19 25 H 22 Rate Blood Pressure 131/68 131/68 126/60 O2 Sat by Pulse 100 100 100 Oximetry 11/09/21 11/09/21 11/09/21 15:30 15:40 15:46 Temperature Pulse Rate 103 H 104 H 104 H Pulse Rate [ From Monitor] Respiratory 19 24 Rate Blood Pressure 132/88 132/88 132/88 O2 Sat by Pulse 100 100 100 Oximetry 11/09/21 11/09/21 11/09/21 15:50 16:00 16:10 Temperature 98.2 F Pulse Rate 105 H 101 H 95 H Pulse Rate [ 79 From Monitor] Respiratory 25 H 21 19 Rate Blood Pressure 142/85 128/61 128/61 O2 Sat by Pulse 100 100 100 Oximetry 11/09/21 11/09/21 11/09/21 16:20 16:30 16:40 Temperature Pulse Rate 86 84 106 H Pulse Rate [ From Monitor] Respiratory 17 21 21 Rate Blood Pressure 106/54 95/41 95/41 O2 Sat by Pulse 100 100 95 Oximetry 11/09/21 11/09/21 11/09/21 16:50 17:00 17:10 Temperature Pulse Rate 116 H 113 H 113 H Pulse Rate [ From Monitor] Respiratory 17 30 H 26 H Rate Blood Pressure 151/77 150/77 150/77 O2 Sat by Pulse 92 92 92 Oximetry 11/09/21 11/09/21 11/09/21 17:20 17:30 17:40 Temperature Pulse Rate 98 H 93 H 101 H Pulse Rate [ From Monitor] Respiratory 26 H 20 25 H Rate Blood Pressure 124/61 102/45 102/45 O2 Sat by Pulse 93 95 96 Oximetry 11/09/21 11/09/21 11/09/21 17:50 18:00 18:10 Temperature Pulse Rate 87 104 H 103 H Pulse Rate [ From Monitor] Respiratory 16 23 18 Rate Blood Pressure 110/52 125/69 125/69 O2 Sat by Pulse 98 99 99 Oximetry 11/09/21 11/09/21 18:20 18:30 Temperature Pulse Rate 101 H 101 H Pulse Rate [ From Monitor] Respiratory 25 H 27 H Rate Blood Pressure 102/46 120/65 O2 Sat by Pulse 100 100 Oximetry Constitutional: no acute distress, other (ETT to MVS, frail elderly woman) Eyes: non-icteric ENT: oropharynx moist Neck: supple, no lymphadenopathy, no JVD Effort: normal Ascultation: Bilateral: diminished breath sounds, rhonchi Cardiovascular: regular rate and rhythm, other (S1,S2) Gastrointestinal: normoactive bowel sounds, soft, non-tender, non-distended Extremities: pulses normal, edema Neurologic: pupils equal and round, other (grimaces to pain) CBC and BMP: 11/10/21 04:00 11/10/21 04:00 ABG, PT/INR, D-dimer: ABG ABG pH 7.479 pH Units (7.350-7.450) H 11/09/21 02:31 ABG pCO2 29.9 mm Hg 11/09/21 02:31 ABG pO2 121.3 mm Hg (80.0-90.0) H 11/09/21 02:31 ABG O2 Saturation 98.5 % (95.0-99.0) 11/09/21 02:31 PT/INR, D-dimer PT 18.6 Sec. (12.2-14.9) H 11/03/21 22:32 INR 1.40 (0.87-1.13) H 11/03/21 22:32 D-Dimer 1494.53 ng/mlDDU (0-234) H 11/05/21 06:11 Abnormal lab findings: Abnormal Labs 11/03/21 11/03/21 11/03/21 22:32 22:32 22:32 WBC 29.3 H RBC 2.93 L Hgb 6.1 L Hct 21.9 L MCV 75 L MCH 21 L MCHC 28 L RDW 19.7 H Seg Neuts % (Manual) 97.0 H Lymphocytes % (Manual) 3.0 L Seg Neutrophils # Man 28.4 H Lymphocytes # (Manual) 0.9 L Monocytes # (Manual) PT 18.6 H INR 1.40 H D-Dimer ABG pH ABG pO2 ABG HCO3 ABG O2 Saturation ABG Base Excess ABG Hemoglobin Oxyhemoglobin Sodium Potassium Chloride Carbon Dioxide 20 L BUN 33 H Glucose 119 H POC Glucose Lactic Acid Calcium 8.3 L AST ALT Alkaline Phosphatase Lactate Dehydrogenase Troponin T 0.035 H C-Reactive Protein NT-Pro-B Natriuret Pep Total Protein Albumin LDL Cholesterol Direct 34 L Crossmatch 11/03/21 11/03/21 11/03/21 22:32 22:32 23:57 WBC RBC Hgb Hct MCV MCH MCHC RDW Seg Neuts % (Manual) Lymphocytes % (Manual) Seg Neutrophils # Man Lymphocytes # (Manual) Monocytes # (Manual) PT INR D-Dimer ABG pH ABG pO2 ABG HCO3 ABG O2 Saturation ABG Base Excess ABG Hemoglobin Oxyhemoglobin Sodium Potassium Chloride Carbon Dioxide BUN Glucose POC Glucose Lactic Acid 3.70 H* Calcium AST ALT Alkaline Phosphatase 139 H Lactate Dehydrogenase Troponin T C-Reactive Protein NT-Pro-B Natriuret Pep 7895 H Total Protein Albumin 3.5 L LDL Cholesterol Direct Crossmatch See Detail 11/04/21 11/04/21 11/05/21 00:59 13:58 00:51 WBC 27.9 H RBC 3.28 L Hgb 7.3 L Hct 25.5 L MCV 78 L MCH 22 L MCHC 29 L RDW 19.1 H Seg Neuts % (Manual) 96.0 H Lymphocytes % (Manual) 2.0 L Seg Neutrophils # Man 26.8 H Lymphocytes # (Manual) 0.6 L Monocytes # (Manual) PT INR D-Dimer ABG pH ABG pO2 ABG HCO3 ABG O2 Saturation ABG Base Excess ABG Hemoglobin Oxyhemoglobin Sodium Potassium Chloride Carbon Dioxide BUN Glucose POC Glucose Lactic Acid Calcium AST ALT Alkaline Phosphatase Lactate Dehydrogenase Troponin T 0.051 H D 0.032 H D C-Reactive Protein NT-Pro-B Natriuret Pep Total Protein Albumin LDL Cholesterol Direct Crossmatch 11/05/21 11/05/21 11/05/21 06:11 06:11 06:11 WBC 31.8 H RBC 3.57 L Hgb 8.0 L Hct 27.7 L MCV 78 L MCH 22 L MCHC 29 L RDW 19.2 H Seg Neuts % (Manual) 91.0 H Lymphocytes % (Manual) 4.5 L Seg Neutrophils # Man 28.9 H Lymphocytes # (Manual) Monocytes # (Manual) 1.1 H PT INR D-Dimer 1494.53 H ABG pH ABG pO2 ABG HCO3 ABG O2 Saturation ABG Base Excess ABG Hemoglobin Oxyhemoglobin Sodium Potassium Chloride Carbon Dioxide 19 L BUN 42 H Glucose 115 H POC Glucose Lactic Acid Calcium AST 43 H ALT Alkaline Phosphatase Lactate Dehydrogenase 187 H Troponin T C-Reactive Protein 22.20 H NT-Pro-B Natriuret Pep Total Protein 6.0 L Albumin 3.2 L LDL Cholesterol Direct Crossmatch 11/05/21 11/05/21 11/06/21 06:11 12:15 00:30 WBC RBC Hgb Hct MCV MCH MCHC RDW Seg Neuts % (Manual) Lymphocytes % (Manual) Seg Neutrophils # Man Lymphocytes # (Manual) Monocytes # (Manual) PT INR D-Dimer ABG pH ABG pO2 ABG HCO3 ABG O2 Saturation ABG Base Excess ABG Hemoglobin Oxyhemoglobin Sodium Potassium Chloride Carbon Dioxide BUN Glucose POC Glucose 113 H 69 L Lactic Acid Calcium AST ALT Alkaline Phosphatase Lactate Dehydrogenase Troponin T 0.033 H C-Reactive Protein NT-Pro-B Natriuret Pep Total Protein Albumin LDL Cholesterol Direct Crossmatch 11/06/21 11/06/21 11/06/21 05:50 15:50 15:50 WBC 25.5 H RBC 3.62 L Hgb 8.0 L Hct 27.5 L MCV 76 L MCH 22 L MCHC 29 L RDW 19.6 H Seg Neuts % (Manual) 92.0 H Lymphocytes % (Manual) 5.0 L Seg Neutrophils # Man 23.5 H Lymphocytes # (Manual) Monocytes # (Manual) PT INR D-Dimer ABG pH 7.305 L ABG pO2 ABG HCO3 15.8 L ABG O2 Saturation ABG Base Excess -9.6 L ABG Hemoglobin 8.6 L Oxyhemoglobin 94.6 L Sodium Potassium Chloride 113.9 H Carbon Dioxide 17 L BUN 56 H Glucose 114 H POC Glucose Lactic Acid Calcium 7.9 L AST 1410 H ALT 934 H Alkaline Phosphatase 142 H Lactate Dehydrogenase Troponin T C-Reactive Protein NT-Pro-B Natriuret Pep Total Protein 5.0 L Albumin 2.6 L LDL Cholesterol Direct Crossmatch 11/07/21 11/07/21 11/07/21 03:30 04:50 08:07 WBC RBC Hgb Hct MCV MCH MCHC RDW Seg Neuts % (Manual) Lymphocytes % (Manual) Seg Neutrophils # Man Lymphocytes # (Manual) Monocytes # (Manual) PT INR D-Dimer ABG pH ABG pO2 296.9 H ABG HCO3 18.1 L ABG O2 Saturation 99.5 H ABG Base Excess -5.9 L ABG Hemoglobin 7.6 L Oxyhemoglobin Sodium Potassium Chloride Carbon Dioxide BUN Glucose POC Glucose 106 H 108 H Lactic Acid Calcium AST ALT Alkaline Phosphatase Lactate Dehydrogenase Troponin T C-Reactive Protein NT-Pro-B Natriuret Pep Total Protein Albumin LDL Cholesterol Direct Crossmatch 11/08/21 11/08/21 11/08/21 03:10 18:05 23:43 WBC RBC Hgb Hct MCV MCH MCHC RDW Seg Neuts % (Manual) Lymphocytes % (Manual) Seg Neutrophils # Man Lymphocytes # (Manual) Monocytes # (Manual) PT INR D-Dimer ABG pH ABG pO2 127.4 H ABG HCO3 ABG O2 Saturation ABG Base Excess -3.4 L ABG Hemoglobin 7.4 L Oxyhemoglobin Sodium Potassium Chloride Carbon Dioxide BUN Glucose POC Glucose 113 H 141 H Lactic Acid Calcium AST ALT Alkaline Phosphatase Lactate Dehydrogenase Troponin T C-Reactive Protein NT-Pro-B Natriuret Pep Total Protein Albumin LDL Cholesterol Direct Crossmatch 11/08/21 11/08/21 11/09/21 Unknown Unknown 02:00 WBC 14.5 H RBC 3.35 L Hgb 7.5 L 8.1 L Hct 25.4 L 27.6 L MCV 76 L 76 L MCH 23 L 22 L MCHC RDW 19.9 H 19.9 H Seg Neuts % (Manual) Lymphocytes % (Manual) Seg Neutrophils # Man Lymphocytes # (Manual) Monocytes # (Manual) PT INR D-Dimer ABG pH ABG pO2 ABG HCO3 ABG O2 Saturation ABG Base Excess ABG Hemoglobin Oxyhemoglobin Sodium 154 H D Potassium 3.3 L Chloride 120.7 H Carbon Dioxide 20 L BUN 38 H Glucose POC Glucose Lactic Acid Calcium 8.3 L AST ALT Alkaline Phosphatase Lactate Dehydrogenase Troponin T C-Reactive Protein NT-Pro-B Natriuret Pep Total Protein Albumin LDL Cholesterol Direct Crossmatch 11/09/21 11/09/21 11/09/21 02:00 02:31 05:12 WBC RBC Hgb Hct MCV MCH MCHC RDW Seg Neuts % (Manual) Lymphocytes % (Manual) Seg Neutrophils # Man Lymphocytes # (Manual) Monocytes # (Manual) PT INR D-Dimer ABG pH 7.479 H ABG pO2 121.3 H ABG HCO3 ABG O2 Saturation ABG Base Excess ABG Hemoglobin 7.3 L Oxyhemoglobin Sodium Potassium Chloride 112.5 H Carbon Dioxide BUN 33 H Glucose 161 H POC Glucose 135 H Lactic Acid Calcium AST 251 H ALT 481 H Alkaline Phosphatase Lactate Dehydrogenase Troponin T C-Reactive Protein NT-Pro-B Natriuret Pep Total Protein 5.0 L Albumin 2.8 L LDL Cholesterol Direct Crossmatch 11/09/21 11/09/21 11:33 16:32 WBC RBC Hgb Hct MCV MCH MCHC RDW Seg Neuts % (Manual) Lymphocytes % (Manual) Seg Neutrophils # Man Lymphocytes # (Manual) Monocytes # (Manual) PT INR D-Dimer ABG pH ABG pO2 ABG HCO3 ABG O2 Saturation ABG Base Excess ABG Hemoglobin Oxyhemoglobin Sodium Potassium Chloride Carbon Dioxide BUN Glucose POC Glucose 132 H 133 H Lactic Acid Calcium AST ALT Alkaline Phosphatase Lactate Dehydrogenase Troponin T C-Reactive Protein NT-Pro-B Natriuret Pep Total Protein Albumin LDL Cholesterol Direct Crossmatch Allied health notes reviewed: nursing
[2021-11-09] MEDS: METOPROLOL TARTRATE 25 MG TAB PO SCH (21:02)
[2021-11-09] MEDS: ALBUTEROL 2.5 MG/3 ML NEBU IH SCH (23:08)
[2021-11-10] MEDS: INSULIN LISPRO 100 UNIT/ML SUB-Q SCH ×4 (00:27→18:24)
[2021-11-10] MEDS: HEPARIN 5,000 UNIT/1 ML VIAL SUB-Q SCH ×2 (02:32→10:09)
[2021-11-10] MEDS: FUROSEMIDE 20 MG/2 ML INJ IV SCH ×2 (05:27→18:24)
[2021-11-10 05:35] LABS: Mean Corpuscular HGB Conc 30 % (30-34); Mean Corpuscular Volume 75 fl (79-97); Platelet Count 144 K/mm3 (140-440); Red Blood Count 3.61 M/mm3 (3.65-5.03)
[2021-11-10 05:58] LABS: Hematocrit 27.1 % (30.3-42.9); Red Cell Distribution Width 20.4 % (13.2-15.2)
[2021-11-10 06:01] LABS: Blood Urea Nitrogen 31 mg/dL (7-17); Calcium 8.2 mg/dL (8.4-10.2); Hemolysis Index 5
[2021-11-10] MEDS: LEVOTHYROXINE 125 MCG TAB PO SCH (06:13)
[2021-11-10 06:20] LABS: BUN/Creatinine Ratio 52
[2021-11-10] MEDS: ALBUTEROL 2.5 MG/3 ML NEBU IH SCH ×3 (08:54→22:17)
[2021-11-10] MEDS: ACETYLCYSTEINE 20% 200 MG/1 ML *FOR INHALATION USE INHALATION SCH ×3 (08:54→22:17)
--- NOTE | 2021-11-10 09:38 | Consultation ---
History of Present Illness Consult date: 11/10/21 Reason for Consult: Encephalopathy and Hypoxemia with fever ,COVID-19 is negative History of present illness: Shortness of Breath History of present illness: 81-year-old female with known history of diabetes mellitus, hypertension and arthritis brought to the emergency room via EMS today for shortness of breath which has been ongoing for the past 3 days. Patient has been having some cough and shortness of breath. According to patient's , patient has also been having a fever of about 102.2 F. Upon arrival of EMS patient was found to be tachypneic with O2 saturation of 76% on room air which later improved to 88% on nonrebreather. Work-up in the emergency room today, chest x-ray shows bilateral interstitial pulmonary edema with bilateral pleural effusions.. Bibasilar opacities which favors atelectasis. Lab reveals leukocytosis of 29. Hemoglobin of 6.1. Patient is being prepared for blood transfusion and will also be checked for COVID-19. she is off sedation intubated neurology asked to see pt. 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 denies: valve replacement, CABG Social history: denies: smoking, alcohol abuse Family history: CAD, cancer, hypertension Medications and Allergies Allergies Allergy/AdvReac Type Severity Reaction Status Date / Time codeine Allergy Unknown Verified 11/04/21 02:20 meperidine HCl [From Demerol] Allergy Unknown Verified 11/04/21 02:21 morphine Allergy Unknown Verified 11/04/21 02:21 Penicillins Allergy Swelling Verified 11/04/21 02:21 Home Medications Medication Instructions Recorded Confirmed Last Taken Type Buspirone HCl [busPIRone] 15 mg PO DAILY 11/04/21 11/04/21 Unknown History Furosemide [Lasix] 40 mg PO QDAY 11/04/21 11/04/21 Unknown History HYDROcodone/APAP 10-325 [Gilbert 1 each PO Q8HR PRN 11/04/21 11/04/21 Unknown History 10/325] Levothyroxine [Synthroid] 125 mcg PO QAM 11/04/21 11/04/21 Unknown History Loratadine [Allergy Relief] 10 mg PO QDAY PRN 11/04/21 11/04/21 Unknown History Meclizine [Antivert] 12.5 mg PO BID PRN 11/04/21 11/04/21 Unknown History Nitroglycerin [Nitrostat] 0.4 mg SL PRN PRN 11/04/21 11/04/21 Unknown History Omeprazole Magnesium [Prilosec] 20 mg PO QDAY 11/04/21 11/04/21 Unknown History Ondansetron HCl [Zofran] 4 mg PO Q6HR PRN 11/04/21 11/04/21 Unknown History Pravastatin Sodium [Pravastatin] 20 mg PO QHS 11/04/21 11/04/21 Unknown History Prednisone [predniSONE (Rebeca) ER 1 mg PO QDAY 11/04/21 11/04/21 Unknown History TAB] allopurinoL [Zyloprim] 300 mg PO QDAY 11/04/21 11/04/21 Unknown History Active Meds: Active Medications Acetaminophen (Acetaminophen 325 Mg Tab) 650 mg PO Q6H PRN PRN Reason: Pain MILD(1-3)/Fever >100.5/RODRIGUEZ Last Admin: 11/08/21 22:49 Dose: 650 mg Acetylcysteine (Acetylcysteine 20% 200 Mg/1 Ml *For Inhalation Use*) 200 mg INHALATION Q8HRT [facility] Last Admin: 11/10/21 08:54 Dose: Not Given Albuterol (Albuterol 2.5 Mg/3 Ml Nebu) 2.5 mg IH Q8HRT [facility] Last Admin: 11/10/21 08:54 Dose: Not Given Lipase/Protease/Amylase (Lipase 10,500/Protease 25,000/Amylase 43,750 (Units) Dr Lema) 1 each FEEDTUBE PRN PRN PRN Reason: For Clogged Feeding Tube Dextrose (Dextrose 50% In Water (25gm) 50 Ml Syringe) 50 ml IV Q30MIN PRN; Protocol PRN Reason: Hypoglycemia Docusate Sodium (Docusate Sodium 100 Mg/10 Ml Oral Liqd) 100 mg PO BID [facility] Last Admin: 11/09/21 21:01 Dose: 100 mg Famotidine (Famotidine 20 Mg/2 Ml Inj) 20 mg IV DAILY [facility] Last Admin: 11/09/21 10:10 Dose: 20 mg Furosemide (Furosemide 20 Mg/2 Ml Inj) 20 mg IV 0600,1800 [facility] Last Admin: 11/10/21 05:27 Dose: 20 mg Heparin Sodium (Porcine) (Heparin 5,000 Unit/1 Ml Vial) 5,000 unit SUB-Q 0200,1000,1800 [facility] Last Admin: 11/10/21 02:32 Dose: 5,000 unit Hydrophilic Ointment (Lip Therapy Vaseline) 1 applic TP Q2HR PRN PRN Reason: Dry Lips Ceftriaxone Sodium (Rocephin/Ns 2 Gm/100 Ml) 2 gm in 100 mls @ 200 mls/hr IV Q24HR [facility]; Protocol Last Admin: 11/09/21 10:11 Dose: 200 mls/hr NORepinephrine/NS 8 MG-250 ML (Norepinephrine/Ns 8 Mg-250 Ml (Double Conc)) 8 mg in 250 mls @ 3.75 mls/hr IV TITRATE [facility]; Protocol Last Titration: 11/07/21 08:45 Dose: Infused Vasopressin 20 unit/ Sodium (Chloride) 101 mls @ 9.09 mls/hr IV TITR [facility]; Protocol Last Admin: 11/06/21 01:00 Dose: 0.03 units/min, 9.09 mls/hr Insulin Human Lispro (Insulin Lispro 100 Unit/Ml) 0 unit SUB-Q Q6HR [facility]; Protocol Last Admin: 11/10/21 06:12 Dose: Not Given Levothyroxine Sodium (Levothyroxine 125 Mcg Tab) 125 mcg PO DAILY@0600 [facility] Last Admin: 11/10/21 06:13 Dose: 125 mcg Magnesium Hydroxide (Magnesium Hydroxide (Mom) Oral Liqd Udc) 30 ml PO Q4H PRN PRN Reason: Constipation Metoprolol Tartrate (Metoprolol Tartrate 25 Mg Tab) 12.5 mg PO BID [facility] Last Admin: 11/09/21 21:02 Dose: 12.5 mg Multi-Ingred Cream/Lotion/Oil/Oint (Mineral Oil/Petrolatum, White Ophth Oint 3.5 Gm) 1 applic OU Q4HR PRN PRN Reason: Dry Eye(s) Ondansetron HCl (Ondansetron 4 Mg/2 Ml Inj) 4 mg IV Q8H PRN PRN Reason: Nausea And Vomiting Last Admin: 11/05/21 15:48 Dose: 4 mg Polyethylene Glycol (Polyethylene Glycol 3350 17 Gm Powder) 17 gm PO QDAY [facility] Last Admin: 11/09/21 10:10 Dose: 17 gm Potassium Chloride (Potassium Chloride 20 Meq Packet) 40 meq FEEDTUBE ONCE [facility] Last Admin: 11/08/21 15:27 Dose: 40 meq Senna (Sennosides Oral Liqd 8.8 Mg/5 Ml Oral Liqd) 17.6 mg PO Q12HR [facility] Last Admin: 11/09/21 21:02 Dose: 17.6 mg Simple Syrup (Simple Syrup 15 Ml) 15 ml FEEDTUBE PRN PRN PRN Reason: Hypoglycemia Simple Syrup (Simple Syrup 15 Ml) 30 ml FEEDTUBE PRN PRN PRN Reason: Hypoglycemia Sodium Bicarbonate (Sodium Bicarbonate 325 Mg Tab) 325 mg FEEDTUBE PRN PRN PRN Reason: For Clogged Feeding Tube Sodium Chloride (Sodium Chloride 0.9% 10 Ml Flush Syringe) 10 ml IV BID [facility] Last Admin: 11/09/21 21:02 Dose: 10 ml Sodium Chloride (Sodium Chloride 0.9% 10 Ml Flush Syringe) 10 ml IV PRN PRN PRN Reason: LINE FLUSH Physical Examination - Vital Signs Vital Signs: Vital Signs Temp Pulse Resp BP Pulse Ox 99.7 F H 120 H 26 H 110/70 88 11/03/21 22:15 11/03/21 22:15 11/03/21 22:15 11/03/21 22:15 11/03/21 22:15 - Constitutional General appearance: comfortable - EENT EENT: Present: PERRL, mucous membranes moist - Respiratory Respiratory: Present: lungs clear, rales, rhonchi - Cardiovascular Cardiovascular: Present: regular rate, normal S1, normal S2 Extremities: Present: no peripheral edema bilatateraly, no clubbing, cyanosis - Gastrointestinal Gastrointestinal: Present: normoactive bowel sounds - Integumentary Integumentary: Present: normal - Neurologic Cranial nerve examination: PERRL, EOMI Speech examination: other (intubated and is lathergic , not follow command) Detailed motor examination: other (slight movment in lower and to lesser extent in upper she is lathergic and is not following command,reflexes are suppressed and planter is down going) Cerebellar examination: other (she is slightly open eyes to sternal rub not moving not follow command , no neck rigidity is appreciated) Results - Laboratory Findings CBC and BMP: 11/10/21 04:00 11/10/21 04:00 Abnormal Lab Findings: Abnormal Labs 11/03/21 11/03/21 11/03/21 22:32 22:32 22:32 WBC 29.3 H RBC 2.93 L Hgb 6.1 L Hct 21.9 L MCV 75 L MCH 21 L MCHC 28 L RDW 19.7 H Seg Neuts % (Manual) 97.0 H Lymphocytes % (Manual) 3.0 L Seg Neutrophils # Man 28.4 H Lymphocytes # (Manual) 0.9 L Monocytes # (Manual) PT 18.6 H INR 1.40 H D-Dimer ABG pH ABG pO2 ABG HCO3 ABG O2 Saturation ABG Base Excess ABG Hemoglobin Oxyhemoglobin Sodium Potassium Chloride Carbon Dioxide 20 L BUN 33 H Glucose 119 H POC Glucose Lactic Acid Calcium 8.3 L AST ALT Alkaline Phosphatase Lactate Dehydrogenase Troponin T 0.035 H C-Reactive Protein NT-Pro-B Natriuret Pep Total Protein Albumin LDL Cholesterol Direct 34 L Crossmatch 11/03/21 11/03/21 11/03/21 22:32 22:32 23:57 WBC RBC Hgb Hct MCV MCH MCHC RDW Seg Neuts % (Manual) Lymphocytes % (Manual) Seg Neutrophils # Man Lymphocytes # (Manual) Monocytes # (Manual) PT INR D-Dimer ABG pH ABG pO2 ABG HCO3 ABG O2 Saturation ABG Base Excess ABG Hemoglobin Oxyhemoglobin Sodium Potassium Chloride Carbon Dioxide BUN Glucose POC Glucose Lactic Acid 3.70 H* Calcium AST ALT Alkaline Phosphatase 139 H Lactate Dehydrogenase Troponin T C-Reactive Protein NT-Pro-B Natriuret Pep 7895 H Total Protein Albumin 3.5 L LDL Cholesterol Direct Crossmatch See Detail 11/04/21 11/04/21 11/05/21 00:59 13:58 00:51 WBC 27.9 H RBC 3.28 L Hgb 7.3 L Hct 25.5 L MCV 78 L MCH 22 L MCHC 29 L RDW 19.1 H Seg Neuts % (Manual) 96.0 H Lymphocytes % (Manual) 2.0 L Seg Neutrophils # Man 26.8 H Lymphocytes # (Manual) 0.6 L Monocytes # (Manual) PT INR D-Dimer ABG pH ABG pO2 ABG HCO3 ABG O2 Saturation ABG Base Excess ABG Hemoglobin Oxyhemoglobin Sodium Potassium Chloride Carbon Dioxide BUN Glucose POC Glucose Lactic Acid Calcium AST ALT Alkaline Phosphatase Lactate Dehydrogenase Troponin T 0.051 H D 0.032 H D C-Reactive Protein NT-Pro-B Natriuret Pep Total Protein Albumin LDL Cholesterol Direct Crossmatch 11/05/21 11/05/21 11/05/21 06:11 06:11 06:11 WBC 31.8 H RBC 3.57 L Hgb 8.0 L Hct 27.7 L MCV 78 L MCH 22 L MCHC 29 L RDW 19.2 H Seg Neuts % (Manual) 91.0 H Lymphocytes % (Manual) 4.5 L Seg Neutrophils # Man 28.9 H Lymphocytes # (Manual) Monocytes # (Manual) 1.1 H PT INR D-Dimer 1494.53 H ABG pH ABG pO2 ABG HCO3 ABG O2 Saturation ABG Base Excess ABG Hemoglobin Oxyhemoglobin Sodium Potassium Chloride Carbon Dioxide 19 L BUN 42 H Glucose 115 H POC Glucose Lactic Acid Calcium AST 43 H ALT Alkaline Phosphatase Lactate Dehydrogenase 187 H Troponin T C-Reactive Protein 22.20 H NT-Pro-B Natriuret Pep Total Protein 6.0 L Albumin 3.2 L LDL Cholesterol Direct Crossmatch 11/05/21 11/05/21 11/06/21 06:11 12:15 00:30 WBC RBC Hgb Hct MCV MCH MCHC RDW Seg Neuts % (Manual) Lymphocytes % (Manual) Seg Neutrophils # Man Lymphocytes # (Manual) Monocytes # (Manual) PT INR D-Dimer ABG pH ABG pO2 ABG HCO3 ABG O2 Saturation ABG Base Excess ABG Hemoglobin Oxyhemoglobin Sodium Potassium Chloride Carbon Dioxide BUN Glucose POC Glucose 113 H 69 L Lactic Acid Calcium AST ALT Alkaline Phosphatase Lactate Dehydrogenase Troponin T 0.033 H C-Reactive Protein NT-Pro-B Natriuret Pep Total Protein Albumin LDL Cholesterol Direct Crossmatch 11/06/21 11/06/21 11/06/21 05:50 15:50 15:50 WBC 25.5 H RBC 3.62 L Hgb 8.0 L Hct 27.5 L MCV 76 L MCH 22 L MCHC 29 L RDW 19.6 H Seg Neuts % (Manual) 92.0 H Lymphocytes % (Manual) 5.0 L Seg Neutrophils # Man 23.5 H Lymphocytes # (Manual) Monocytes # (Manual) PT INR D-Dimer ABG pH 7.305 L ABG pO2 ABG HCO3 15.8 L ABG O2 Saturation ABG Base Excess -9.6 L ABG Hemoglobin 8.6 L Oxyhemoglobin 94.6 L Sodium Potassium Chloride 113.9 H Carbon Dioxide 17 L BUN 56 H Glucose 114 H POC Glucose Lactic Acid Calcium 7.9 L AST 1410 H ALT 934 H Alkaline Phosphatase 142 H Lactate Dehydrogenase Troponin T C-Reactive Protein NT-Pro-B Natriuret Pep Total Protein 5.0 L Albumin 2.6 L LDL Cholesterol Direct Crossmatch 11/07/21 11/07/21 11/07/21 03:30 04:50 08:07 WBC RBC Hgb Hct MCV MCH MCHC RDW Seg Neuts % (Manual) Lymphocytes % (Manual) Seg Neutrophils # Man Lymphocytes # (Manual) Monocytes # (Manual) PT INR D-Dimer ABG pH ABG pO2 296.9 H ABG HCO3 18.1 L ABG O2 Saturation 99.5 H ABG Base Excess -5.9 L ABG Hemoglobin 7.6 L Oxyhemoglobin Sodium Potassium Chloride Carbon Dioxide BUN Glucose POC Glucose 106 H 108 H Lactic Acid Calcium AST ALT Alkaline Phosphatase Lactate Dehydrogenase Troponin T C-Reactive Protein NT-Pro-B Natriuret Pep Total Protein Albumin LDL Cholesterol Direct Crossmatch 11/08/21 11/08/21 11/08/21 03:10 18:05 23:43 WBC RBC Hgb Hct MCV MCH MCHC RDW Seg Neuts % (Manual) Lymphocytes % (Manual) Seg Neutrophils # Man Lymphocytes # (Manual) Monocytes # (Manual) PT INR D-Dimer ABG pH ABG pO2 127.4 H ABG HCO3 ABG O2 Saturation ABG Base Excess -3.4 L ABG Hemoglobin 7.4 L Oxyhemoglobin Sodium Potassium Chloride Carbon Dioxide BUN Glucose POC Glucose 113 H 141 H Lactic Acid Calcium AST ALT Alkaline Phosphatase Lactate Dehydrogenase Troponin T C-Reactive Protein NT-Pro-B Natriuret Pep Total Protein Albumin LDL Cholesterol Direct Crossmatch 11/08/21 11/08/21 11/09/21 Unknown Unknown 02:00 WBC 14.5 H RBC 3.35 L Hgb 7.5 L 8.1 L Hct 25.4 L 27.6 L MCV 76 L 76 L MCH 23 L 22 L MCHC RDW 19.9 H 19.9 H Seg Neuts % (Manual) Lymphocytes % (Manual) Seg Neutrophils # Man Lymphocytes # (Manual) Monocytes # (Manual) PT INR D-Dimer ABG pH ABG pO2 ABG HCO3 ABG O2 Saturation ABG Base Excess ABG Hemoglobin Oxyhemoglobin Sodium 154 H D Potassium 3.3 L Chloride 120.7 H Carbon Dioxide 20 L BUN 38 H Glucose POC Glucose Lactic Acid Calcium 8.3 L AST ALT Alkaline Phosphatase Lactate Dehydrogenase Troponin T C-Reactive Protein NT-Pro-B Natriuret Pep Total Protein Albumin LDL Cholesterol Direct Crossmatch 11/09/21 11/09/21 11/09/21 02:00 02:31 05:12 WBC RBC Hgb Hct MCV MCH MCHC RDW Seg Neuts % (Manual) Lymphocytes % (Manual) Seg Neutrophils # Man Lymphocytes # (Manual) Monocytes # (Manual) PT INR D-Dimer ABG pH 7.479 H ABG pO2 121.3 H ABG HCO3 ABG O2 Saturation ABG Base Excess ABG Hemoglobin 7.3 L Oxyhemoglobin Sodium Potassium Chloride 112.5 H Carbon Dioxide BUN 33 H Glucose 161 H POC Glucose 135 H Lactic Acid Calcium AST 251 H ALT 481 H Alkaline Phosphatase Lactate Dehydrogenase Troponin T C-Reactive Protein NT-Pro-B Natriuret Pep Total Protein 5.0 L Albumin 2.8 L LDL Cholesterol Direct Crossmatch 11/09/21 11/09/21 11/09/21 11:33 16:32 23:28 WBC RBC Hgb Hct MCV MCH MCHC RDW Seg Neuts % (Manual) Lymphocytes % (Manual) Seg Neutrophils # Man Lymphocytes # (Manual) Monocytes # (Manual) PT INR D-Dimer ABG pH ABG pO2 ABG HCO3 ABG O2 Saturation ABG Base Excess ABG Hemoglobin Oxyhemoglobin Sodium Potassium Chloride Carbon Dioxide BUN Glucose POC Glucose 132 H 133 H 143 H Lactic Acid Calcium AST ALT Alkaline Phosphatase Lactate Dehydrogenase Troponin T C-Reactive Protein NT-Pro-B Natriuret Pep Total Protein Albumin LDL Cholesterol Direct Crossmatch 11/10/21 11/10/21 11/10/21 04:00 04:00 05:35 WBC 16.0 H RBC 3.61 L Hgb 8.0 L Hct 27.1 L MCV 75 L MCH 22 L MCHC RDW 20.4 H Seg Neuts % (Manual) Lymphocytes % (Manual) Seg Neutrophils # Man Lymphocytes # (Manual) Monocytes # (Manual) PT INR D-Dimer ABG pH ABG pO2 ABG HCO3 ABG O2 Saturation ABG Base Excess ABG Hemoglobin Oxyhemoglobin Sodium 149 H Potassium Chloride 114.1 H Carbon Dioxide BUN 31 H Glucose 148 H POC Glucose 132 H Lactic Acid Calcium 8.2 L AST ALT Alkaline Phosphatase Lactate Dehydrogenase Troponin T C-Reactive Protein NT-Pro-B Natriuret Pep Total Protein Albumin LDL Cholesterol Direct Crossmatch Assessment and Plan 81-year-old female with known history of diabetes mellitus, hypertension and arthritis brought to the emergency room via EMS today for shortness of breath which has been ongoing for the past 3 days. Patient has been having some cough and shortness of breath. According to patient's , patient has also been having a fever of about 102.2 F. Upon arrival of EMS patient was found to be tachypneic with O2 saturation of 76% on room air which later improved to 88% on nonrebreather. Work-up in the emergency room today, chest x-ray shows bilateral interstitial pulmonary edema with bilateral pleural effusions.. Bibasilar opacities which favors atelectasis. Assessment and Plan #Acute Encephalopathy - Probably r/t sedation vs infectious process- off sedation today -Ct brain showed no acute event -EEG is pending -MRI brain when possible - Pt was on versed gtt, now D/c #Septic Shock POA #Bilateral Pneumonia #Bacteremia - Presented with fevers, leukocytosis, and hypotension - COVID PCR negative - 11/04 B.cult with 3/4 group B strep bacteremia - 11/05 Repeat B.culture pending - 11/04 2D Echo with no evidence of vegetation - ID on consult, appreciate recommendations - Continue current IV Abx per ID - F/u on culture data - Trend CBC #Acute Hypoxic Respiratory Failure 2/2 #Bilateral Pleural Effusion #Bilateral Pneumonia - COVID PCR negative - CXR shows Bilateral opacities, may be volume overloaded. - Intubated on 11/06 - Vent Setting:A/C-35%,6,16,350 - This am ABG noted - CCM consulted, appreciate recommendations - Continue IV ABx - VAP bundle addressed - Aspiration precaution HOB above 30 - PS trials when more awake - ABG and CXR er CCM - Continue SPO2 monitoring for SPO2 goal above 92% #CHF- EF 30-35% with PPM #Hypotension-improved #Septic Kristian - Was on 3 pressors initially - Off pressors this am - SR on the monitor, HR 70-90s - 11/04 Echo-EF 30-35% - Cardiology consulted - Continue blood pressure monitor per protocol - Maintain MAP above 65 #Acute Microcytic Anemia #Transaminitis/Shock Liver #DVT Prophylaxis - Continue AC- heparin subQ - SCDs to bilateral lower extremities while in bed The high probability of a clinically significant, sudden or life threatening deterioration of the [multi] system(s) required my full and direct attention, intervention and personal management. The aggregate critical care time was [60] minutes. This time is in addition to time spent performing reported procedures but includes the following: [x] Data Review and interpretation [x] Patient assessment and monitoring of vital signs [x] Documentation PLAN 1- Hold sedation 2- MRI brain wo gd when possible 3- EEG 4- treat underlying infection 5-TSH,B12,ammonia level will follow
[2021-11-10] MEDS: SENNOSIDES ORAL LIQD 8.8 MG/5 ML ORAL LIQD PO SCH ×2 (10:07→21:40)
[2021-11-10] MEDS: POLYETHYLENE GLYCOL 3350 17 GM POWDER PO SCH (10:07)
[2021-11-10] MEDS: SODIUM CHLORIDE 0.9% 50 ML IVPB IV PRN (10:07)
[2021-11-10] MEDS: cefTRIAXone/NS 2 GM/100 ML 2 GM/100 ML BAG IV SCH (10:07)
[2021-11-10] MEDS: DOCUSATE SODIUM 100 MG/10 ML ORAL LIQD PO SCH ×2 (10:08→21:40)
[2021-11-10] MEDS: FAMOTIDINE 20 MG/2 ML INJ IV SCH (10:08)
[2021-11-10] MEDS: METOPROLOL TARTRATE 25 MG TAB PO SCH ×2 (10:08→21:41)
--- NOTE | 2021-11-10 12:26 | Progress Note ---
Assessment and Plan Severe Sepsis POA vs septic shock- 11/03/2021 blood culture: 2 sets positive for GPC Acute respiratory failure with hypoxia, now on MVS Acute microcytic anemia Bilateral pneumonia Left pleural effusion Cardiomyopathy EF 30-35% Moderate pulmonary HTN RVSP 49 - follow US Chest +/- thoracentesis - get lower extremity dopplers re: elevated d-dimers - reduced set rate to 12/min - increased TV to 400mls - get ABG now ands address - d/c folley cathetr in am if shows critical care improvement - antibiotics per ID (BCx positive for beta hemolytic strep, follow up cultures no growth to date) - continue care as below otherwise; - Daily SAT and SBT assessment as tolerated - continue to wean supplemental oxygen for target O2 sat's > 90% acutely - VAP bundle addressed - continue lung protective strategies - continue bronchodilators with pulmonary hygiene per RT - wean per pulmonary driven protocols otherwise - avoid nephrotoxins, renally dose all medications - continue accuchecks with glycemic control per SSI (While critically ill target blood glucose of 140-180 mg/dL; avoid hypoglycemia) - sedation prn for target RASS 0 to -1 - continue to avoid benzodiazepine's, reduce the possibility of delirium - prn analgesia per CPOT score - Maintenance of sleep-wake cycle, avoid delirium - continue enteral nutritional support at goal rate as tolerated - G.I. & VTE prophylaxis - PT/OT/ROM exercises - continue mobility protocols for pressure ulcer prophylaxis - Monitor hemodynamics closely - continue other care per attending / other consultants - discharge planning ongoing concurrently COVID SPECIFIC INTERVENTIONS - COVID-19 PCR negative .... Re-evaluate in am & prn CONDITION: CRITICAL PROGNOSIS: GUARDED CODE STATUS: FULL CODE The high probability of a clinically significant, sudden or life-threatening deterioration of the [respiratory, cardiovascular & neurologic] system(s) required my full and direct attention, intervention and personal management. The aggregate critical care time was [34] minutes without overlap. Time includes spent on; [x] Data Review and interpretation [x] Patient assessment and monitoring of vital signs [x] Documentation [x] Medication orders and management Subjective Date of service: 11/10/21 Principal diagnosis: Septic shock; AHRF; Anemia; Pneumonia; L. pleural effusion; HFrEF; Pulm HTN Interval history: Patient is seen today for: Septic shock; Acute hypoxemic respiratory failure; Anemia; Bilateral pneumonia; Left pleural effusion; HFrEF 30-35%; Pulm HTN RVSP 49 Seen and examined at bedside; 24hour events reviewed; nursing and respiratory care staff consulted; no adverse overnight events reported to me; resting in bed; remains on MVS; failed bedside SBT; AMS is persistent; mild oropharyngeal secretions; COVID-19 repeat test negative; no gross bleeding Objective Vital Signs - 12hr 11/10/21 11/10/21 11/10/21 00:30 00:40 00:50 Temperature Pulse Rate 113 H 111 H 103 H Respiratory 27 H 28 H 26 H Rate Blood Pressure 152/89 152/89 152/89 O2 Sat by Pulse 99 98 98 Oximetry 11/10/21 11/10/21 11/10/21 01:00 01:10 01:20 Temperature Pulse Rate 97 H 96 H 98 H Respiratory 21 25 H 22 Rate Blood Pressure 125/66 125/66 125/66 O2 Sat by Pulse 99 99 99 Oximetry 11/10/21 11/10/21 11/10/21 01:30 01:40 01:50 Temperature Pulse Rate 97 H 99 H 104 H Respiratory 25 H 25 H 20 Rate Blood Pressure 125/66 125/66 125/66 O2 Sat by Pulse 99 99 99 Oximetry 11/10/21 11/10/21 11/10/21 02:00 02:10 02:20 Temperature Pulse Rate 99 H 88 91 H Respiratory 22 22 22 Rate Blood Pressure 134/63 134/63 134/63 O2 Sat by Pulse 98 99 99 Oximetry 11/10/21 11/10/21 11/10/21 02:30 02:40 02:50 Temperature Pulse Rate 96 H 94 H 102 H Respiratory 23 22 20 Rate Blood Pressure 134/63 134/63 134/63 O2 Sat by Pulse 99 99 100 Oximetry 11/10/21 11/10/21 11/10/21 03:00 03:10 03:20 Temperature Pulse Rate 96 H 93 H 91 H Respiratory 23 26 H 20 Rate Blood Pressure 119/62 119/62 119/62 O2 Sat by Pulse 99 100 99 Oximetry 11/10/21 11/10/21 11/10/21 03:30 03:40 03:50 Temperature Pulse Rate 99 H 100 H 92 H Respiratory 21 21 24 Rate Blood Pressure 119/62 119/62 119/62 O2 Sat by Pulse 100 100 100 Oximetry 11/10/21 11/10/2122 04:00 04:10 04:20 Temperature 98.7 F Pulse Rate 94 H 93 H 97 H Respiratory 22 25 H 22 Rate Blood Pressure 127/70 127/70 127/70 O2 Sat by Pulse 100 99 100 Oximetry 11/10/21 11/10/21 11/10/21 04:30 04:40 04:50 Temperature Pulse Rate 95 H 97 H 99 H Respiratory 26 H 25 H 16 Rate Blood Pressure 127/70 127/70 127/70 O2 Sat by Pulse 100 100 100 Oximetry 11/10/21 11/10/21 11/10/21 05:00 05:10 05:20 Temperature Pulse Rate 95 H 95 H 95 H Respiratory 19 11 L 23 Rate Blood Pressure 130/63 130/63 130/63 O2 Sat by Pulse 100 100 100 Oximetry 11/10/21 11/10/21 11/10/21 05:30 05:40 05:50 Temperature Pulse Rate 97 H 101 H 99 H Respiratory 21 30 H 22 Rate Blood Pressure 130/63 130/63 130/63 O2 Sat by Pulse 100 100 100 Oximetry 11/10/21 11/10/21 11/10/21 06:00 06:11 06:21 Temperature Pulse Rate 93 H 97 H 102 H Respiratory 22 18 28 H Rate Blood Pressure 134/63 130/63 130/63 O2 Sat by Pulse 99 100 100 Oximetry 11/10/21 11/10/21 11/10/21 06:31 06:41 06:51 Temperature Pulse Rate 103 H 97 H 96 H Respiratory 24 19 26 H Rate Blood Pressure 130/63 130/63 130/63 O2 Sat by Pulse 99 99 99 Oximetry 11/10/21 11/10/21 11/10/21 07:00 07:11 07:21 Temperature Pulse Rate 101 H 97 H 96 H Respiratory 25 H 19 27 H Rate Blood Pressure 137/60 137/60 137/60 O2 Sat by Pulse 99 99 99 Oximetry 11/10/21 11/10/21 11/10/21 07:31 07:41 07:49 Temperature Pulse Rate 98 H 99 H 98 H Respiratory 28 H 23 Rate Blood Pressure 137/60 137/60 137/60 O2 Sat by Pulse 99 100 100 Oximetry 11/10/21 11/10/21 11/10/21 07:51 08:00 08:11 Temperature 98.9 F Pulse Rate 97 H 101 H 95 H Respiratory 18 30 H 26 H Rate Blood Pressure 137/60 133/70 133/70 O2 Sat by Pulse 100 99 98 Oximetry 11/10/21 11/10/21 11/10/21 08:21 08:31 08:41 Temperature Pulse Rate 101 H 108 H 107 H Respiratory 22 30 H 12 Rate Blood Pressure 133/70 133/70 133/70 O2 Sat by Pulse 99 99 99 Oximetry 11/10/21 11/10/21 11/10/21 08:51 09:00 09:11 Temperature Pulse Rate 99 H 97 H 98 H Respiratory 28 H 22 23 Rate Blood Pressure 133/70 125/54 125/54 O2 Sat by Pulse 98 99 98 Oximetry 11/10/21 11/10/21 11/10/21 09:21 09:31 09:41 Temperature Pulse Rate 98 H 97 H 95 H Respiratory 21 26 H 25 H Rate Blood Pressure 125/54 125/54 125/54 O2 Sat by Pulse 99 99 99 Oximetry 11/10/21 11/10/21 11/10/21 09:51 10:00 10:08 Temperature Pulse Rate 101 H 100 H 100 H Respiratory 23 24 Rate Blood Pressure 125/54 145/63 145/63 O2 Sat by Pulse 99 99 Oximetry 11/10/21 11/10/21 11/10/21 10:11 10:21 10:31 Temperature Pulse Rate 101 H 105 H 90 Respiratory 29 H 29 H 25 H Rate Blood Pressure 145/63 145/63 145/63 O2 Sat by Pulse 100 99 99 Oximetry 11/10/21 11/10/21 11/10/21 10:41 10:51 11:00 Temperature Pulse Rate 87 94 H 93 H Respiratory 19 23 31 H Rate Blood Pressure 145/63 145/63 139/69 O2 Sat by Pulse 99 99 98 Oximetry 11/10/21 11/10/21 11/10/21 11:11 11:21 11:22 Temperature Pulse Rate 94 H 92 H 90 Respiratory 27 H 25 H Rate Blood Pressure 139/69 139/69 139/69 O2 Sat by Pulse 100 99 100 Oximetry 11/10/21 11:31 Temperature Pulse Rate 87 Respiratory 26 H Rate Blood Pressure 139/69 O2 Sat by Pulse 99 Oximetry Constitutional: appears uncomfortable, other (ETT to MVS, frail elderly woman with mildly increased respiratory effort at rest) Eyes: non-icteric ENT: oropharynx moist, oropharyngeal exudate pre (clear frothy), other (ETT 23 cm ELIZABETH) Neck: supple, no lymphadenopathy, no JVD Effort: normal, mildly labored Ascultation: Bilateral: diminished breath sounds, rhonchi Percussion: Bilateral: not dull Cardiovascular: regular rate and rhythm, other (S1,S2) Gastrointestinal: normoactive bowel sounds, soft, non-tender, non-distended Extremities: no edema, pink and warm, pulses normal, edema (trace) Neurologic: non-focal exam (grossly), pupils equal and round, unable to assess, other (grimaces to pain) Psychiatric: anxious, other (unable to assess re: AMS) CBC and BMP: 11/10/21 04:00 11/10/21 04:00 ABG, PT/INR, D-dimer: ABG ABG pH 7.479 pH Units (7.350-7.450) H 11/09/21 02:31 ABG pCO2 29.9 mm Hg 11/09/21 02:31 ABG pO2 121.3 mm Hg (80.0-90.0) H 11/09/21 02:31 ABG O2 Saturation 98.5 % (95.0-99.0) 11/09/21 02:31 PT/INR, D-dimer PT 18.6 Sec. (12.2-14.9) H 11/03/21 22:32 INR 1.40 (0.87-1.13) H 11/03/21 22:32 D-Dimer 1494.53 ng/mlDDU (0-234) H 11/05/21 06:11 Abnormal lab findings: Abnormal Labs 11/03/21 11/03/21 11/03/21 22:32 22:32 22:32 WBC 29.3 H RBC 2.93 L Hgb 6.1 L Hct 21.9 L MCV 75 L MCH 21 L MCHC 28 L RDW 19.7 H Seg Neuts % (Manual) 97.0 H Lymphocytes % (Manual) 3.0 L Seg Neutrophils # Man 28.4 H Lymphocytes # (Manual) 0.9 L Monocytes # (Manual) PT 18.6 H INR 1.40 H D-Dimer ABG pH ABG pO2 ABG HCO3 ABG O2 Saturation ABG Base Excess ABG Hemoglobin Oxyhemoglobin Sodium Potassium Chloride Carbon Dioxide 20 L BUN 33 H Glucose 119 H POC Glucose Lactic Acid Calcium 8.3 L AST ALT Alkaline Phosphatase Lactate Dehydrogenase Troponin T 0.035 H C-Reactive Protein NT-Pro-B Natriuret Pep Total Protein Albumin LDL Cholesterol Direct 34 L Crossmatch 11/03/21 11/03/21 11/03/21 22:32 22:32 23:57 WBC RBC Hgb Hct MCV MCH MCHC RDW Seg Neuts % (Manual) Lymphocytes % (Manual) Seg Neutrophils # Man Lymphocytes # (Manual) Monocytes # (Manual) PT INR D-Dimer ABG pH ABG pO2 ABG HCO3 ABG O2 Saturation ABG Base Excess ABG Hemoglobin Oxyhemoglobin Sodium Potassium Chloride Carbon Dioxide BUN Glucose POC Glucose Lactic Acid 3.70 H* Calcium AST ALT Alkaline Phosphatase 139 H Lactate Dehydrogenase Troponin T C-Reactive Protein NT-Pro-B Natriuret Pep 7895 H Total Protein Albumin 3.5 L LDL Cholesterol Direct Crossmatch See Detail 11/04/21 11/04/21 11/05/21 00:59 13:58 00:51 WBC 27.9 H RBC 3.28 L Hgb 7.3 L Hct 25.5 L MCV 78 L MCH 22 L MCHC 29 L RDW 19.1 H Seg Neuts % (Manual) 96.0 H Lymphocytes % (Manual) 2.0 L Seg Neutrophils # Man 26.8 H Lymphocytes # (Manual) 0.6 L Monocytes # (Manual) PT INR D-Dimer ABG pH ABG pO2 ABG HCO3 ABG O2 Saturation ABG Base Excess ABG Hemoglobin Oxyhemoglobin Sodium Potassium Chloride Carbon Dioxide BUN Glucose POC Glucose Lactic Acid Calcium AST ALT Alkaline Phosphatase Lactate Dehydrogenase Troponin T 0.051 H D 0.032 H D C-Reactive Protein NT-Pro-B Natriuret Pep Total Protein Albumin LDL Cholesterol Direct Crossmatch 11/05/21 11/05/21 11/05/21 06:11 06:11 06:11 WBC 31.8 H RBC 3.57 L Hgb 8.0 L Hct 27.7 L MCV 78 L MCH 22 L MCHC 29 L RDW 19.2 H Seg Neuts % (Manual) 91.0 H Lymphocytes % (Manual) 4.5 L Seg Neutrophils # Man 28.9 H Lymphocytes # (Manual) Monocytes # (Manual) 1.1 H PT INR D-Dimer 1494.53 H ABG pH ABG pO2 ABG HCO3 ABG O2 Saturation ABG Base Excess ABG Hemoglobin Oxyhemoglobin Sodium Potassium Chloride Carbon Dioxide 19 L BUN 42 H Glucose 115 H POC Glucose Lactic Acid Calcium AST 43 H ALT Alkaline Phosphatase Lactate Dehydrogenase 187 H Troponin T C-Reactive Protein 22.20 H NT-Pro-B Natriuret Pep Total Protein 6.0 L Albumin 3.2 L LDL Cholesterol Direct Crossmatch 11/05/21 11/05/21 11/06/21 06:11 12:15 00:30 WBC RBC Hgb Hct MCV MCH MCHC RDW Seg Neuts % (Manual) Lymphocytes % (Manual) Seg Neutrophils # Man Lymphocytes # (Manual) Monocytes # (Manual) PT INR D-Dimer ABG pH ABG pO2 ABG HCO3 ABG O2 Saturation ABG Base Excess ABG Hemoglobin Oxyhemoglobin Sodium Potassium Chloride Carbon Dioxide BUN Glucose POC Glucose 113 H 69 L Lactic Acid Calcium AST ALT Alkaline Phosphatase Lactate Dehydrogenase Troponin T 0.033 H C-Reactive Protein NT-Pro-B Natriuret Pep Total Protein Albumin LDL Cholesterol Direct Crossmatch 11/06/21 11/06/21 11/06/21 05:50 15:50 15:50 WBC 25.5 H RBC 3.62 L Hgb 8.0 L Hct 27.5 L MCV 76 L MCH 22 L MCHC 29 L RDW 19.6 H Seg Neuts % (Manual) 92.0 H Lymphocytes % (Manual) 5.0 L Seg Neutrophils # Man 23.5 H Lymphocytes # (Manual) Monocytes # (Manual) PT INR D-Dimer ABG pH 7.305 L ABG pO2 ABG HCO3 15.8 L ABG O2 Saturation ABG Base Excess -9.6 L ABG Hemoglobin 8.6 L Oxyhemoglobin 94.6 L Sodium Potassium Chloride 113.9 H Carbon Dioxide 17 L BUN 56 H Glucose 114 H POC Glucose Lactic Acid Calcium 7.9 L AST 1410 H ALT 934 H Alkaline Phosphatase 142 H Lactate Dehydrogenase Troponin T C-Reactive Protein NT-Pro-B Natriuret Pep Total Protein 5.0 L Albumin 2.6 L LDL Cholesterol Direct Crossmatch 11/07/21 11/07/21 11/07/21 03:30 04:50 08:07 WBC RBC Hgb Hct MCV MCH MCHC RDW Seg Neuts % (Manual) Lymphocytes % (Manual) Seg Neutrophils # Man Lymphocytes # (Manual) Monocytes # (Manual) PT INR D-Dimer ABG pH ABG pO2 296.9 H ABG HCO3 18.1 L ABG O2 Saturation 99.5 H ABG Base Excess -5.9 L ABG Hemoglobin 7.6 L Oxyhemoglobin Sodium Potassium Chloride Carbon Dioxide BUN Glucose POC Glucose 106 H 108 H Lactic Acid Calcium AST ALT Alkaline Phosphatase Lactate Dehydrogenase Troponin T C-Reactive Protein NT-Pro-B Natriuret Pep Total Protein Albumin LDL Cholesterol Direct Crossmatch 11/08/21 11/08/21 11/08/21 03:10 18:05 23:43 WBC RBC Hgb Hct MCV MCH MCHC RDW Seg Neuts % (Manual) Lymphocytes % (Manual) Seg Neutrophils # Man Lymphocytes # (Manual) Monocytes # (Manual) PT INR D-Dimer ABG pH ABG pO2 127.4 H ABG HCO3 ABG O2 Saturation ABG Base Excess -3.4 L ABG Hemoglobin 7.4 L Oxyhemoglobin Sodium Potassium Chloride Carbon Dioxide BUN Glucose POC Glucose 113 H 141 H Lactic Acid Calcium AST ALT Alkaline Phosphatase Lactate Dehydrogenase Troponin T C-Reactive Protein NT-Pro-B Natriuret Pep Total Protein Albumin LDL Cholesterol Direct Crossmatch 11/08/21 11/08/21 11/09/21 Unknown Unknown 02:00 WBC 14.5 H RBC 3.35 L Hgb 7.5 L 8.1 L Hct 25.4 L 27.6 L MCV 76 L 76 L MCH 23 L 22 L MCHC RDW 19.9 H 19.9 H Seg Neuts % (Manual) Lymphocytes % (Manual) Seg Neutrophils # Man Lymphocytes # (Manual) Monocytes # (Manual) PT INR D-Dimer ABG pH ABG pO2 ABG HCO3 ABG O2 Saturation ABG Base Excess ABG Hemoglobin Oxyhemoglobin Sodium 154 H D Potassium 3.3 L Chloride 120.7 H Carbon Dioxide 20 L BUN 38 H Glucose POC Glucose Lactic Acid Calcium 8.3 L AST ALT Alkaline Phosphatase Lactate Dehydrogenase Troponin T C-Reactive Protein NT-Pro-B Natriuret Pep Total Protein Albumin LDL Cholesterol Direct Crossmatch 11/09/21 11/09/21 11/09/21 02:00 02:31 05:12 WBC RBC Hgb Hct MCV MCH MCHC RDW Seg Neuts % (Manual) Lymphocytes % (Manual) Seg Neutrophils # Man Lymphocytes # (Manual) Monocytes # (Manual) PT INR D-Dimer ABG pH 7.479 H ABG pO2 121.3 H ABG HCO3 ABG O2 Saturation ABG Base Excess ABG Hemoglobin 7.3 L Oxyhemoglobin Sodium Potassium Chloride 112.5 H Carbon Dioxide BUN 33 H Glucose 161 H POC Glucose 135 H Lactic Acid Calcium AST 251 H ALT 481 H Alkaline Phosphatase Lactate Dehydrogenase Troponin T C-Reactive Protein NT-Pro-B Natriuret Pep Total Protein 5.0 L Albumin 2.8 L LDL Cholesterol Direct Crossmatch 11/09/21 11/09/21 11/09/21 11:33 16:32 23:28 WBC RBC Hgb Hct MCV MCH MCHC RDW Seg Neuts % (Manual) Lymphocytes % (Manual) Seg Neutrophils # Man Lymphocytes # (Manual) Monocytes # (Manual) PT INR D-Dimer ABG pH ABG pO2 ABG HCO3 ABG O2 Saturation ABG Base Excess ABG Hemoglobin Oxyhemoglobin Sodium Potassium Chloride Carbon Dioxide BUN Glucose POC Glucose 132 H 133 H 143 H Lactic Acid Calcium AST ALT Alkaline Phosphatase Lactate Dehydrogenase Troponin T C-Reactive Protein NT-Pro-B Natriuret Pep Total Protein Albumin LDL Cholesterol Direct Crossmatch 11/10/21 11/10/21 11/10/21 04:00 04:00 05:35 WBC 16.0 H RBC 3.61 L Hgb 8.0 L Hct 27.1 L MCV 75 L MCH 22 L MCHC RDW 20.4 H Seg Neuts % (Manual) Lymphocytes % (Manual) Seg Neutrophils # Man Lymphocytes # (Manual) Monocytes # (Manual) PT INR D-Dimer ABG pH ABG pO2 ABG HCO3 ABG O2 Saturation ABG Base Excess ABG Hemoglobin Oxyhemoglobin Sodium 149 H Potassium Chloride 114.1 H Carbon Dioxide BUN 31 H Glucose 148 H POC Glucose 132 H Lactic Acid Calcium 8.2 L AST ALT Alkaline Phosphatase Lactate Dehydrogenase Troponin T C-Reactive Protein NT-Pro-B Natriuret Pep Total Protein Albumin LDL Cholesterol Direct Crossmatch 11/10/21 11:31 WBC RBC Hgb Hct MCV MCH MCHC RDW Seg Neuts % (Manual) Lymphocytes % (Manual) Seg Neutrophils # Man Lymphocytes # (Manual) Monocytes # (Manual) PT INR D-Dimer ABG pH ABG pO2 ABG HCO3 ABG O2 Saturation ABG Base Excess ABG Hemoglobin Oxyhemoglobin Sodium Potassium Chloride Carbon Dioxide BUN Glucose POC Glucose 147 H Lactic Acid Calcium AST ALT Alkaline Phosphatase Lactate Dehydrogenase Troponin T C-Reactive Protein NT-Pro-B Natriuret Pep Total Protein Albumin LDL Cholesterol Direct Crossmatch Chest x-ray: pending Allied health notes reviewed: nursing
--- NOTE | 2021-11-10 14:10 | Progress Note ---
Assessment and Plan Acute Respiratory Failure Septic Shock GBS Bacteremia Bilateral Pneumonia Bilateral Pleural Effusions Acute HFrEF Cardiomyopathy (EF reduced to 30-35% on echo this admission) NSVT Tn Elevation (?Type [address] in the setting of hypoxia & shock) Elevated LFTs (?shock liver) Anemia Hypokalemia CAD s/p PCI (2004) CHB s/p PPM ([facility]) Hypothyroidism H/o HTN H/o DM Arthritis Echo reviewed - EF 30-35%, mild diastolic dysfunction, RV mildly dilated, moderate MR, moderate TR, moderate pulmonary HTN w/RVSP 49mmHg, no pericardial effusion, large left pleural effusion. Plan: EKG shows sinus 95 with nonspecific T wave abnormality. No acute ischemic changes Suspect volume overload in the setting of IV fluid resuscitation. Continue gentle IV diuresis with strict I/Os and close monitoring of renal indices & electrolytes. Continue metoprolol 12.5mg BID. Not on ASA d/t allergy. Statin held in the setting of elevated LFTs. Pt seen in conjunction with Dr. Rizo, who agrees with the assessment and plan of care. - Patient Problems (1) Acute anemia Current Visit: Yes Status: Acute (2) Acute respiratory failure with hypoxia Current Visit: Yes Status: Acute (3) Bilateral pneumonia Current Visit: Yes Status: Acute Subjective Date of service: 11/10/21 Principal diagnosis: Septic shock; AHRF; Anemia; Pneumonia; L. pleural effusion; HFrEF; Pulm HTN Interval history: Patient remained intubated and sedated no acute distress Sinus 90s to 100 with PVCs on monitor Objective Vital Signs Temp Pulse Pulse Pulse Resp BP Pulse Ox 11/10/21 12:00 99.1 F 11/10/21 11:31 87 26 H 139/69 99 11/10/21 11:22 90 139/69 100 11/10/21 11:21 92 H 25 H 139/69 99 11/10/21 11:11 94 H 27 H 139/69 100 11/10/21 11:00 93 H 31 H 139/69 98 11/10/21 10:51 94 H 23 145/63 99 11/10/21 10:41 87 19 145/63 99 11/10/21 10:31 90 25 H 145/63 99 11/10/21 10:21 105 H 29 H 145/63 99 11/10/21 10:11 101 H 29 H 145/63 100 11/10/21 10:08 100 H 145/63 11/10/21 10:00 100 H 24 145/63 99 11/10/21 09:51 101 H 23 125/54 99 11/10/21 09:41 95 H 25 H 125/54 99 11/10/21 09:31 97 H 26 H 125/54 99 11/10/21 09:21 98 H 21 125/54 99 11/10/21 09:11 98 H 23 125/54 98 11/10/21 09:00 97 H 22 125/54 99 11/10/21 08:51 99 H 28 H 133/70 98 11/10/21 08:41 107 H 12 133/70 99 11/10/21 08:31 108 H 30 H 133/70 99 11/10/21 08:21 101 H 22 133/70 99 11/10/21 08:11 95 H 26 H 133/70 98 11/10/21 08:00 98.9 F 101 H 30 H 133/70 99 11/10/21 07:51 97 H 18 137/60 100 11/10/21 07:49 98 H 137/60 100 11/10/21 07:41 99 H 23 137/60 100 11/10/21 07:31 98 H 28 H 137/60 99 11/10/21 07:21 96 H 27 H 137/60 99 11/10/21 07:11 97 H 19 137/60 99 11/10/21 07:00 101 H 25 H 137/60 99 11/10/21 06:51 96 H 26 H 130/63 99 11/10/21 06:41 97 H 19 130/63 99 11/10/21 06:31 103 H 24 130/63 99 11/10/21 06:21 102 H 28 H 130/63 100 11/10/21 06:11 97 H 18 130/63 100 11/10/21 06:00 93 H 22 134/63 99 11/10/21 05:50 99 H 22 130/63 100 11/10/21 05:40 101 H 30 H 130/63 100 11/10/21 05:30 97 H 21 130/63 100 11/10/21 05:20 95 H 23 130/63 100 11/10/21 05:10 95 H 11 L 130/63 100 11/10/21 05:00 95 H 19 130/63 100 11/10/21 04:50 99 H 16 127/70 100 11/10/21 04:40 97 H 25 H 127/70 100 11/10/21 04:30 95 H 26 H 127/70 100 11/10/21 04:20 97 H 22 127/70 100 11/10/21 04:10 93 H 25 H 127/70 99 11/10/21 04:00 98.7 F 94 H 22 127/70 100 11/10/21 03:50 92 H 24 119/62 100 11/10/21 03:40 100 H 21 119/62 100 11/10/21 03:30 99 H 21 119/62 100 11/10/21 03:20 91 H 20 119/62 99 11/10/21 03:10 93 H 26 H 119/62 100 11/10/21 03:00 96 H 23 119/62 99 11/10/21 02:50 102 H 20 134/63 100 11/10/21 02:40 94 H 22 134/63 99 11/10/21 02:30 96 H 23 134/63 99 11/10/21 02:20 91 H 22 134/63 99 11/10/21 02:10 88 22 134/63 99 11/10/21 02:00 99 H 22 134/63 98 11/10/21 01:50 104 H 20 125/66 99 11/10/21 01:40 99 H 25 H 125/66 99 11/10/21 01:30 97 H 25 H 125/66 99 11/10/21 01:20 98 H 22 125/66 99 11/10/21 01:10 96 H 25 H 125/66 99 11/10/21 01:00 97 H 21 125/66 99 11/10/21 00:50 103 H 26 H 152/89 98 11/10/21 00:40 111 H 28 H 152/89 98 11/10/21 00:30 113 H 27 H 152/89 99 11/10/21 00:20 105 H 24 152/89 99 11/10/21 00:10 108 H 26 H 152/89 98 11/10/21 00:00 98.8 F 110 H 31 H 119/59 98 11/09/21 23:57 113 H 152/89 98 11/09/21 23:50 112 H 24 119/59 98 11/09/21 23:40 102 H 25 H 119/59 100 11/09/21 23:30 84 17 119/59 100 11/09/21 23:20 86 16 119/59 100 11/09/21 23:18 88 16 119/59 100 11/09/21 23:17 89 11/09/21 23:10 102 H 29 H 119/59 99 11/09/21 23:00 93 H 20 119/59 100 11/09/21 22:50 94 H 20 117/65 99 11/09/21 22:40 100 H 25 H 117/65 99 11/09/21 22:30 99 H 27 H 117/65 100 11/09/21 22:20 95 H 20 117/65 99 11/09/21 22:10 91 H 27 H 117/65 99 11/09/21 22:00 94 H 24 117/65 100 11/09/21 21:50 98 H 28 H 137/73 99 11/09/21 21:40 99 H 22 137/73 100 11/09/21 21:30 93 H 20 137/73 99 11/09/21 21:20 102 H 26 H 137/73 99 11/09/21 21:10 97 H 21 137/73 100 11/09/21 21:00 108 H 23 137/73 100 11/09/21 20:50 113 H 26 H 128/86 99 11/09/21 20:40 111 H 23 128/86 99 11/09/21 20:30 114 H 20 128/86 99 11/09/21 20:20 111 H 21 128/86 99 11/09/21 20:10 108 H 24 128/86 99 11/09/21 20:00 99.4 F 113 H 23 128/86 99 11/09/21 19:50 116 H 21 129/92 99 11/09/21 19:47 117 H 117 H 29 H 99 11/09/21 19:40 117 H 17 111/50 100 11/09/21 19:30 98 H 21 111/50 100 11/09/21 19:20 102 H 20 121/60 99 11/09/21 19:10 99 H 28 H 132/67 100 11/09/21 19:00 111 H 26 H 132/67 99 11/09/21 18:50 112 H 27 H 135/77 100 11/09/21 18:40 105 H 28 H 120/65 100 11/09/21 18:30 101 H 27 H 120/65 100 11/09/21 18:20 101 H 25 H 102/46 100 11/09/21 18:10 103 H 18 125/69 99 11/09/21 18:00 104 H 23 125/69 99 11/09/21 17:50 87 16 110/52 98 11/09/21 17:40 101 H 25 H 102/45 96 11/09/21 17:30 93 H 20 102/45 95 11/09/21 17:20 98 H 26 H 124/61 93 11/09/21 17:10 113 H 26 H 150/77 92 11/09/21 17:00 113 H 30 H 150/77 92 11/09/21 16:50 116 H 17 151/77 92 11/09/21 16:40 106 H 21 95/41 95 11/09/21 16:30 84 21 95/41 100 11/09/21 16:20 86 17 106/54 100 11/09/21 16:10 95 H 19 128/61 100 11/09/21 16:00 98.2 F 101 H 79 21 128/61 100 11/09/21 15:50 105 H 25 H 142/85 100 11/09/21 15:46 104 H 132/88 100 11/09/21 15:40 104 H 24 132/88 100 11/09/21 15:30 103 H 19 132/88 100 11/09/21 15:20 91 H 22 126/60 100 11/09/21 15:10 95 H 25 H 131/68 100 11/09/21 15:00 94 H 19 131/68 100 11/09/21 14:50 94 H 27 H 130/72 100 11/09/21 14:40 90 19 145/67 100 11/09/21 14:30 99 H 22 145/67 99 11/09/21 14:20 96 H 25 H 126/65 100 11/09/21 14:10 85 17 122/56 97 - Physical Examination General: Other (intubated) HEENT: Positive: Normocephaly Neck: Positive: neck supple, trachea midline Cardiac: Positive: Reg Rate and Rhythm Lungs: Positive: Ventilated Respirations Neuro: Positive: Other (intubated) Abdomen: Positive: Soft Skin: Negative: Wound Musculoskeletal: No Fluid Collection Extremities: Present: lower extr. pulses, edema - Labs and Meds CBC 11/10/21 Range/Units 04:00 WBC 16.0 H (4.5-11.0) K/mm3 RBC 3.61 L (3.65-5.03) M/mm3 Hgb 8.0 L (10.1-14.3) gm/dl Hct 27.1 L (30.3-42.9) % Plt Count 144 (140-440) K/mm3 Comprehensive Metabolic Panel 11/10/21 Range/Units 04:00 Sodium 149 H (137-145) mmol/L Potassium 3.9 (3.6-5.0) mmol/L Chloride 114.1 H (98-107) mmol/L Carbon Dioxide 23 (22-30) mmol/L BUN 31 H (7-17) mg/dL Creatinine 0.6 (0.6-1.2) mg/dL Glucose 148 H (65-100) mg/dL Calcium 8.2 L (8.4-10.2) mg/dL - Imaging and Cardiology EKG: report reviewed, image reviewed Stress echo: report reviewed Echo: report reviewed Cardiac cath: report reviewed - Telemetry EKG Rhythm: Sinus Rhythm - EKG Sinus rhythms and dysrhythmias: sinus rhythm - Allied health notes Allied health notes reviewed: nursing
--- NOTE | 2021-11-10 15:14 | Progress Note ---
Assessment and Plan Cultures: SARS CoV2 PCR: negative 11/03/2021 blood culture: Group B streptococcus 11/04/2021 blood culture: no growth A/P: 81-year-old female with diabetes mellitus, hypertension, arthritis was admitted with shortness of breath. She was also having fever: #Severe sepsis with shock, secondary to bilateral pneumonia: likely from Group B Strep. COVID-19 negative #Group B Strep bacteremia: Likely secondary to above, no other source identified, other possibility is mild lower extremity cellulitis. Does have indwelling cardiac device, per patient it is a pacemaker. TTE showed no valvular or lead vegetations #Acute hypoxic respiratory failure: Secondary to above. Intubated, on the vent. Recs: -continue Ceftriaxone 2 gm daily, plan 2 weeks. -Completed synergistic clindamycin -overall guarded prognosis Mahogany Montes MD [facility] ([facility]) O: [phone] F: [phone] Subjective Date of service: 11/10/21 Principal diagnosis: Septic shock; AHRF; Anemia; Pneumonia; L. pleural effusion; HFrEF; Pulm HTN Interval history: Afebrile, white count elevated at 16. Cultures no growth. She remains on the vent. Imaging personally viewed: Chest x-ray: No significant change Objective - Exam Narrative Exam: Physical exam deferred to reduce risk of transmission of COVID-19. Please refer to primary team's note. - Constitutional Vitals: Vital Signs Temp Pulse Resp BP Pulse Ox 99.1 F 87 26 H 139/69 99 11/10/21 12:00 11/10/21 11:31 11/10/21 11:31 11/10/21 11:31 11/10/21 11:31 Temperature -Last 24 Hours Temperature 99.1 F Temperature 98.9 F Temperature 98.7 F Temperature 98.8 F Temperature 99.4 F Temperature 98.2 F - Labs CBC & Chem 7: 11/10/21 04:00 11/10/21 04:00 Labs: Abnormal lab results 11/09/21 11/09/21 11/10/21 Range/Units 16:32 23:28 04:00 WBC 16.0 H (4.5-11.0) K/mm3 RBC 3.61 L (3.65-5.03) M/mm3 Hgb 8.0 L (10.1-14.3) gm/dl Hct 27.1 L (30.3-42.9) % MCV 75 L (79-97) fl MCH 22 L (28-32) pg RDW 20.4 H (13.2-15.2) % Sodium (137-145) mmol/L Chloride (98-107) mmol/L BUN (7-17) mg/dL Glucose (65-100) mg/dL POC Glucose 133 H 143 H (70-105) mg/dL Calcium (8.4-10.2) mg/dL 11/10/21 11/10/21 11/10/21 Range/Units 04:00 05:35 11:31 WBC (4.5-11.0) K/mm3 RBC (3.65-5.03) M/mm3 Hgb (10.1-14.3) gm/dl Hct (30.3-42.9) % MCV (79-97) fl MCH (28-32) pg RDW (13.2-15.2) % Sodium 149 H (137-145) mmol/L Chloride 114.1 H (98-107) mmol/L BUN 31 H (7-17) mg/dL Glucose 148 H (65-100) mg/dL POC Glucose 132 H 147 H (70-105) mg/dL Calcium 8.2 L (8.4-10.2) mg/dL
[2021-11-10 16:05] LABS: ABG Base Excess 1.2 mmol/L (-2.0-3.0); ABG HCO3 25.6 mmol/L (20.0-26.0); ABG Methemoglobin 0.5 % (0.0-1.5); ABG Oxygen Saturation 98.5 % (95.0-99.0); ABG PCO2 39.3 mm Hg; ABG PH 7.43 pH Units (7.350-7.450); ABG PO2 126.6 mm Hg (80.0-90.0)
--- NOTE | 2021-11-10 18:47 | Vascular Lab Report ---
DUPLEX DOPPLER LOWER EXTREMITY VEINS, BILATERAL INDICATION / CLINICAL INFORMATION: swelling. TECHNIQUE: Duplex doppler imaging was performed through the veins of both lower extremities using conner ous compression and other maneuvers. COMPARISON: None available. FINDINGS: RIGHT COMMON FEMORAL VEIN: Acute thrombus. RIGHT FEMORAL VEIN: Acute thrombus. RIGHT POPLITEAL VEIN: Negative. RIGHT CALF VEINS: Negative. There is also DVT seen in the inferior aspect of the right external iliac vein. LEFT COMMON FEMORAL VEIN: Negative. LEFT FEMORAL VEIN: Negative. LEFT POPLITEAL VEIN: Negative. LEFT CALF VEINS: Negative. ADDITIONAL FINDINGS: None. IMPRESSION: 1. Acute DVT is seen in the right external iliac vein, common femoral vein and superior aspect of the femoral vein. CRITICAL RESULT: Time of Discovery (UROLOGY NURSE/CDT): 1732 Time of Communication (UROLOGY NURSE/CDT): 1740 Licensed Practitioner Receiving Report: Vane, the patient's nurse, notified by the technologist. Read-Back Performed: Yes. Signer Name: Jefferson Salmeron MD Signed: 11/10/2021 6:42 PM Workstation Name: [id number]
--- NOTE | 2021-11-10 19:18 | Progress Note ---
<MAYCOLJASBIR MorelMarissa - Last Filed: 11/10/21 19:52> Assessment and Plan Assessment and plan: Assessment and Plan Assessment and plan: This is a 81-year-old female with known history of diabetes mellitus, hypertension, PPM, and arthritis admitted for sepsis and acute hypoxia respiratory failure 2/2 bilateral pneumonia requiring intubation and ventilatory support Septic shock, POA, bilateral pneumonia, bacteremia -Infectious disease consulted, appreciate recommendations -COVID-19 PCR negative -Presented with fevers, leukocytosis and hypotension -11/04 blood cultures positive with a group B strep bacteremia however repeat blood cultures on the with no growth to date -Echo showed no evidence of vegetation -ABX therapy with ceftriaxone and clindamycin -Completed clindamycin, 2 weeks of ceftriaxone planned (11/04) -Monitor WBC and fever curve Acute hypoxic respiratory failure secondary to bilateral pleural effusion/bilateral pneumonia -COVID-19 PCR negative -Intubated on 11/06 with------ -A.m. vent settings: Assist-control rate 16, tidal volume 350, PEEP 6, FiO2 40% -See RT notes for titration -Failed SBT -ABG/CXR per CCM -VAP bundle -Right chest wall ultrasound pending -SPO2 monitoring -Mucomyst every 8 -Albuterol every 8 Acute DVT in the right external iliac vein, common femoral vein, superior aspect of femoral vein, elevated ddimer -Evidenced on bilateral upper lower extremity ultrasound -Therapeutic Lovenox Heart failure with reduced EF, h/o CHB PPM -S/p vasopressor support -11/04 echocardiogram shows EF 30 to 35% -Cardiology consulted, appreciate recommendations -Continue beta-charleen -Not on aspirin due to allergy -Statins on hold due to elevated LFTs -Blood pressure monitor per protocol Acute encephalopathy -Neurology consulted, appreciate recommendations -CT brain showed no acute events -EEG pending -MRI brain and possible -Avoid delirium -Reorientation as needed -TSH/B12/ammonia level pending Acute microcytic anemia -S/p 1 unit PRBC -Trend CBC -Transfuse for hemoglobin less than 7 Transaminitis -Nutrition consult for tube feeding -BR: Senokot -24-hour positive 475 -Trend LFTs -No BM recorded h/o HTN/CAD s/p PCI (2004) -Statin on hold due to transaminitis -Hold home antihypertensive and resume as tolerated -Blood pressure monitoring per protocol h/o DM -SSI -Accu-Cheks every 6 -Avoid hypoglycemia h/o hypothyroidism -Continue home Synthroid DVT/GI prophylaxis -Therapeutic Lovenox, PPI The high probability of a clinically significant, sudden or life threatening deterioration of the [multi] system(s) required my full and direct attention, intervention and personal management. The aggregate critical care time was [60] minutes. This time is in addition to time spent performing reported procedures but includes the following: [x] Data Review and interpretation [x] Patient assessment and monitoring of vital signs [x] Documentation [x] Medication orders and management Disposition Plan: icu Total Time Spent with Patient (Minutes): 60 History Interval history: This is an 82-year-old female with DM, HTN , PPM and arthritis who presented to the emergency department on 11/04 for shortness of breath ongoing for the past 3 days, cough and according to family a fever of 102.2. Upon arrival of EMS patient was found to be tachypneic and hypoxic with SPO2 of 76% on room air which later improved to 88% on nonrebreather. Work-up in the emergency department included a CXR which showed bilateral interstitial pulmonary edema with bilateral pleural effusions and bibasilar opacities, leukocytosis and anemia with a hemoglobin of 6.1. Patient was admitted to the hospitalist service with acute anemia, acute hypoxic respiratory failure, bilateral pneumonia and COVID-19 PUI with consults to pulmonology, infectious disease and later cardiology. Patient was eventually intubated in the emergency department on 11/06. Hospital Course to date: 11/04/2021: Empiric therapy with iv levaquin/vancomycin. COVID PCR pending. Will consult ID. PCCM consulted, will follow recs. Hypotensive this AM, ordered bolus and fluids at 150 cc/hr. May require pressor support if bp does not improve. 11/05/2021: GBS on bcx +, currently on rocephin IV. Currently on bipap due to respiratory distress overnight. Worsening BL opacities on CXR. May be volume overload vs pneumonia. Unfortunately bp too low for lasix at this point. WIll continue levophed and bipap. Once able to tolerate, may do trial of albumin/lasix. Call attempt made to Niraj, no response. Will try again tomorrow to update. 11/06/2021: Decompensated overnight requiring intubation. CXR shows worsening interstitial infiltrates. Currenlty on dopamine, levophed, vasopressin. PICC tressa johnson ordered. Advised RN to place gamble for I/O monitoring. Would benefit from diuresis but very volume overloaded. Prognosis guarded 11/08: Off sedation this am, remains unresponsive only grimace to pain. Hold all sedatives agents for now, patient is off pressors this am. Hypernatremia from today's lab- D5W X1bag, and low K repleted, repeat lab in the am. Severe constipation also noted from KUB, BR added. 11/09: Sudden SPO2 drop in the 60s this am. Patient was manually bagged and deep suctioned. Patient is currently stable on the vent, repeat CXR with no significant change. D/w CCM Mucomyst and brochodilator added. Patient mentation is unchanged, continue to hold off on sedative agents. Neurology consulted. 11/10: Acute DVT noted on bilateral lower extremity Doppler ultrasound therefore she was started on Lovenox treatment dose. Failed SBT. Hypernatremia and hyperchloremia noted, free water flush adjusted. This is a 80-year-old female with DM, HTN, and arthritis admitted for sepsis, acute hypoxic respiratory failure secondary to bilateral pneumonia requiring intubation Hospitalist Physical - Constitutional Vitals: Temp Pulse Resp BP Pulse Ox 99.1 F 102 H 23 150/71 99 11/10/21 12:00 11/10/21 18:21 11/10/21 18:21 11/10/21 18:21 11/10/21 18:21 General appearance: Present: no acute distress, other (On the vent) HEART Score - HEART Score Troponin: Troponin T 0.033 ng/mL (0.00-0.029) H 11/05/21 06:11 Results - Labs CBC & Chem 7: 11/10/21 04:00 11/10/21 04:00 Labs: Laboratory Last Values WBC 16.0 K/mm3 (4.5-11.0) H 11/10/21 04:00 RBC 3.61 M/mm3 (3.65-5.03) L 11/10/21 04:00 Hgb 8.0 gm/dl (10.1-14.3) L 11/10/21 04:00 Hct 27.1 % (30.3-42.9) L 11/10/21 04:00 MCV 75 fl (79-97) L 11/10/21 04:00 MCH 22 pg (28-32) L 11/10/21 04:00 MCHC 30 % (30-34) 11/10/21 04:00 RDW 20.4 % (13.2-15.2) H 11/10/21 04:00 Plt Count 144 K/mm3 (140-440) 11/10/21 04:00 Add Manual Diff Complete 11/06/21 15:50 Total Counted 100 11/06/21 15:50 Seg Neutrophils % Utility Maintenance Worker 11/06/21 15:50 Seg Neuts % (Manual) 92.0 % (40.0-70.0) H 11/06/21 15:50 Band Neutrophils % 0 % 11/06/21 15:50 Lymphocytes % (Manual) 5.0 % (13.4-35.0) L 11/06/21 15:50 Reactive Lymphs % (Man) 0 % 11/06/21 15:50 Monocytes % (Manual) 3.0 % (0.0-7.3) 11/06/21 15:50 Eosinophils % (Manual) 0 % (0.0-4.3) 11/06/21 15:50 Basophils % (Manual) 0 % (0.0-1.8) 11/06/21 15:50 Metamyelocytes % 0 % 11/06/21 15:50 Myelocytes % 0 % 11/06/21 15:50 Promyelocytes % 0 % 11/06/21 15:50 Blast Cells % 0 % 11/06/21 15:50 Nucleated RBC % Not Reportable 11/06/21 15:50 Seg Neutrophils # Man 23.5 K/mm3 (1.8-7.7) H 11/06/21 15:50 Band Neutrophils # 0.0 K/mm3 11/06/21 15:50 Lymphocytes # (Manual) 1.3 K/mm3 (1.2-5.4) 11/06/21 15:50 Abs React Lymphs (Man) 0.0 K/mm3 11/06/21 15:50 Monocytes # (Manual) 0.8 K/mm3 (0.0-0.8) 11/06/21 15:50 Eosinophils # (Manual) 0.0 K/mm3 (0.0-0.4) 11/06/21 15:50 Basophils # (Manual) 0.0 K/mm3 (0.0-0.1) 11/06/21 15:50 Metamyelocytes # 0.0 K/mm3 11/06/21 15:50 Myelocytes # 0.0 K/mm3 11/06/21 15:50 Promyelocytes # 0.0 K/mm3 11/06/21 15:50 Blast Cells # 0.0 K/mm3 11/06/21 15:50 WBC Morphology Not Reportable 11/06/21 15:50 Hypersegmented Neuts Not Reportable 11/06/21 15:50 Hyposegmented Neuts Not Reportable 11/06/21 15:50 Hypogranular Neuts Not Reportable 11/06/21 15:50 Smudge Cells Not Reportable 11/06/21 15:50 Toxic Granulation Not Reportable 11/06/21 15:50 Toxic Vacuolation Not Reportable 11/06/21 15:50 Dohle Bodies Not Reportable 11/06/21 15:50 Pelger-Huet Anomaly Not Reportable 11/06/21 15:50 Irina Rods Not Reportable 11/06/21 15:50 Platelet Estimate Consistent w auto 11/06/21 15:50 Clumped Platelets Not Reportable 11/06/21 15:50 Plt Clumps, EDTA Not Reportable 11/06/21 15:50 Large Platelets Not Reportable 11/06/21 15:50 Giant Platelets Not Reportable 11/06/21 15:50 Platelet Satelliting Not Reportable 11/06/21 15:50 Plt Morphology Comment Not Reportable 11/06/21 15:50 RBC Morphology Not Reportable 11/06/21 15:50 Dimorphic RBCs Not Reportable 11/06/21 15:50 Polychromasia Not Reportable 11/06/21 15:50 Hypochromasia 2+ 11/06/21 15:50 Poikilocytosis Not Reportable 11/06/21 15:50 Anisocytosis 1+ 11/06/21 15:50 Microcytosis Not Reportable 11/06/21 15:50 Macrocytosis Not Reportable 11/06/21 15:50 Spherocytes Not Reportable 11/06/21 15:50 Pappenheimer Bodies Not Reportable 11/06/21 15:50 Sickle Cells Not Reportable 11/06/21 15:50 Target Cells Not Reportable 11/06/21 15:50 Tear Drop Cells Not Reportable 11/06/21 15:50 Ovalocytes Not Reportable 11/06/21 15:50 Helmet Cells Not Reportable 11/06/21 15:50 O[place] Bodies Not Reportable 11/06/21 15:50 [place] Rings Not Reportable 11/06/21 15:50 Malcom Cells Not Reportable 11/06/21 15:50 Bite Cells Not Reportable 11/06/21 15:50 Crenated Cell Not Reportable 11/06/21 15:50 Elliptocytes Not Reportable 11/06/21 15:50 Acanthocytes (Spur) Not Reportable 11/06/21 15:50 Rouleaux Not Reportable 11/06/21 15:50 Hemoglobin C Crystals Not Reportable 11/06/21 15:50 Schistocytes Not Reportable 11/06/21 15:50 Malaria parasites Not Reportable 11/06/21 15:50 Godfrey Bodies Not Reportable 11/06/21 15:50 Hem Pathologist Commnt No 11/06/21 15:50 PT 18.6 Sec. (12.2-14.9) H 11/03/21 22:32 INR 1.40 (0.87-1.13) H 11/03/21 22:32 APTT 28.9 Sec. (24.2-36.6) 11/03/21 22:32 D-Dimer 1494.53 ng/mlDDU (0-234) H 11/05/21 06:11 ABG pH 7.430 pH Units (7.350-7.450) 11/10/21 15:35 ABG pCO2 39.3 mm Hg 11/10/21 15:35 ABG pO2 126.6 mm Hg (80.0-90.0) H 11/10/21 15:35 ABG HCO3 25.6 mmol/L (20.0-26.0) 11/10/21 15:35 ABG O2 Saturation 98.5 % (95.0-99.0) 11/10/21 15:35 ABG O2 Content 10.3 (0.0-44) 11/10/21 15:35 ABG Base Excess 1.2 mmol/L (-2.0-3.0) 11/10/21 15:35 ABG Hemoglobin 7.4 gm/dl (12.0-16.0) L 11/10/21 15:35 ABG Carboxyhemoglobin 1.9 % (0.0-5.0) 11/10/21 15:35 ABG Methemoglobin 0.5 % (0.0-1.5) 11/10/21 15:35 Oxyhemoglobin 96.2 % (95.0-99.0) 11/10/21 15:35 FiO2 40 % 11/10/21 15:35 Sodium 149 mmol/L (137-145) H 11/10/21 04:00 Potassium 3.9 mmol/L (3.6-5.0) 11/10/21 04:00 Chloride 114.1 mmol/L (98-107) H 11/10/21 04:00 Carbon Dioxide 23 mmol/L (22-30) 11/10/21 04:00 Anion Gap 16 mmol/L 11/10/21 04:00 BUN 31 mg/dL (7-17) H 11/10/21 04:00 Creatinine 0.6 mg/dL (0.6-1.2) 11/10/21 04:00 Estimated GFR > 60 ml/min 11/10/21 04:00 BUN/Creatinine Ratio 52 % 11/10/21 04:00 Glucose 148 mg/dL (65-100) H 11/10/21 04:00 POC Glucose 140 mg/dL (70-105) H 11/10/21 17:53 Lactic Acid 3.70 mmol/L (0.7-2.0) H* 11/03/21 22:32 Calcium 8.2 mg/dL (8.4-10.2) L 11/10/21 04:00 Phosphorus 2.60 mg/dL (2.5-4.5) 11/10/21 04:00 Magnesium 1.70 mg/dL (1.7-2.3) 11/10/21 04:00 Ferritin 52.6 ng/mL (10.0-200.0) 11/05/21 06:11 Total Bilirubin 0.30 mg/dL (0.1-1.2) 11/09/21 02:00 Direct Bilirubin < 0.2 mg/dL (0-0.2) 11/03/21 22:32 Indirect Bilirubin 0.2 mg/dL 11/03/21 22:32 AST 251 units/L (5-40) H 11/09/21 02:00 ALT 481 units/L (7-56) H 11/09/21 02:00 Alkaline Phosphatase 128 units/L (35-129) 11/09/21 02:00 Ammonia 42.0 umol/L (25-60) 11/10/21 14:08 Lactate Dehydrogenase 187 units/L (91-180) H 11/05/21 06:11 Troponin T 0.033 ng/mL (0.00-0.029) H 11/05/21 06:11 C-Reactive Protein 22.20 mg/dL (0.00-1.30) H 11/05/21 06:11 NT-Pro-B Natriuret Pep 7895 pg/mL (0-900) H 11/03/21 22:32 Total Protein 5.0 g/dL (6.3-8.2) L 11/09/21 02:00 Albumin 2.8 g/dL (3.9-5) L 11/09/21 02:00 Albumin/Globulin Ratio 1.3 % 11/09/21 02:00 Triglycerides 66 mg/dL (2-149) 11/03/21 22:32 Cholesterol 80 mg/dL (50-199) 11/03/21 22:32 LDL Cholesterol Direct 34 mg/dL (50-130) L 11/03/21 22:32 HDL Cholesterol 42 mg/dL (40-59) 11/03/21 22:32 Cholesterol/HDL Ratio 1.90 % 11/03/21 22:32 Vitamin B12 1823 pg/mL (211-911) H 11/10/21 14:08 TSH 1.510 mlU/mL (0.270-4.200) 11/10/21 14:08 Coronavirus (PCR) Negative (Negative) 11/10/21 08:30 Blood Type O POSITIVE 11/03/21 23:57 Antibody Screen Negative 11/03/21 23:57 Crossmatch See Detail 11/03/21 23:57 Microbiology: Microbiology 11/04/21 15:03 Peripheral/Venous Blood Culture - Final NO GROWTH AFTER 5 DAYS 11/04/21 15:03 Peripheral/Venous Blood Culture - Final NO GROWTH AFTER 5 DAYS Gamble/IV: Voiding Method Indwelling Catheter Active Medications - Current Medications Current Medications: Generic Name Dose Route Start Last Admin Trade Name Freq PRN Reason Stop Dose Admin Acetaminophen 650 mg 11/04/21 02:03 11/08/21 22:49 Acetaminophen 325 Mg Tab PO 650 mg Q6H PRN Administration Pain MILD(1-3)/Fever >100.5/RODRIGUEZ Acetylcysteine 200 mg 11/10/21 00:00 11/10/21 16:18 Acetylcysteine 20% 200 Mg/1 Ml *For Inhalation Use* INHALATION Not Given Q8HRT YOSSI Albuterol 2.5 mg 11/10/21 00:00 11/10/21 16:18 Albuterol 2.5 Mg/3 Ml Nebu IH Not Given Q8HRT YOSSI Lipase/Protease/Amylase 1 each 11/08/21 11:09 Lipase 10,500/Protease 25,000/Amylase 43,750 (Units) Dr Lema FEEDTUBE PRN PRN For Clogged Feeding Tube Dextrose 0 ml 11/10/21 10:52 Dextrose 10% *Hypoglycemia IV PRN PRN Hypoglycemia Docusate Sodium 100 mg 11/08/21 12:00 11/10/21 10:08 Docusate Sodium 100 Mg/10 Ml Oral Liqd PO 100 mg BID YOSSI Administration Enoxaparin Sodium 60 mg 11/10/21 22:00 Enoxaparin 60 Mg/0.6 Ml Inj SUB-Q Q12HR YOSSI Protocol Famotidine 10 mg 11/11/21 10:00 Famotidine 10 Mg Tab PO BID YOSSI Furosemide 20 mg 11/08/21 18:00 11/10/21 18:24 Furosemide 20 Mg/2 Ml Inj IV 20 mg 0600,1800 YOSSI Administration Hydrophilic Ointment 1 applic 11/06/21 04:02 Lip Therapy Vaseline TP Q2HR PRN Dry Lips Ceftriaxone Sodium 2 gm in 100 mls @ 200 mls/hr 11/04/21 15:00 11/10/21 10:07 Rocephin/Ns 2 Gm/100 Ml IV 200 mls/hr Q24HR YOSSI Administration Protocol NORepinephrine/NS 8 MG-250 ML 8 mg in 250 mls @ 3.75 mls/hr 11/05/21 09:00 11/07/21 08:45 Norepinephrine/Ns 8 Mg-250 Ml (Double Conc) IV Infused TITRATE YOSSI Titration Protocol 2 MCG/MIN Vasopressin 20 unit/ Sodium 101 mls @ 9.09 mls/hr 11/05/21 23:00 11/06/21 01:00 Chloride IV 0.03 units/min TITR YOSSI 9.09 mls/hr Administration Protocol 0.03 UNITS/MIN Insulin Human Lispro 0 unit 11/06/21 12:00 11/10/21 18:24 Insulin Lispro 100 Unit/Ml SUB-Q Not Given Q6HR [facility] Protocol Levothyroxine Sodium 125 mcg 11/05/21 07:00 11/10/21 06:13 Levothyroxine 125 Mcg Tab PO 125 mcg DAILY@0600 [facility] Administration Magnesium Hydroxide 30 ml 11/04/21 02:03 Magnesium Hydroxide (Mom) Oral Liqd Udc PO Q4H PRN Constipation Metoprolol Tartrate 12.5 mg 11/09/21 22:00 11/10/21 10:08 Metoprolol Tartrate 25 Mg Tab PO 12.5 mg BID [facility] Administration Multi-Ingred Cream/Lotion/Oil/Oint 1 applic 11/06/21 04:02 Mineral Oil/Petrolatum, White Ophth Oint 3.5 Gm OU Q4HR PRN Dry Eye(s) Ondansetron HCl 4 mg 11/04/21 02:03 11/05/21 15:48 Ondansetron 4 Mg/2 Ml Inj IV 4 mg Q8H PRN Administration Nausea And Vomiting Polyethylene Glycol 17 gm 11/08/21 12:00 11/10/21 10:07 Polyethylene Glycol 3350 17 Gm Powder PO 17 gm QDAY [facility] Administration Senna 17.6 mg 11/08/21 22:00 11/10/21 10:07 Sennosides Oral Liqd 8.8 Mg/5 Ml Oral Liqd PO 17.6 mg Q12HR YOSSI Administration Simple Syrup 15 ml 11/08/21 11:09 Simple Syrup 15 Ml FEEDTUBE PRN PRN Hypoglycemia Simple Syrup 30 ml 11/08/21 11:09 Simple Syrup 15 Ml FEEDTUBE PRN PRN Hypoglycemia Sodium Bicarbonate 325 mg 11/08/21 11:09 Sodium Bicarbonate 325 Mg Tab FEEDTUBE PRN PRN For Clogged Feeding Tube Sodium Chloride 10 ml 11/04/21 10:00 11/10/21 17:27 Sodium Chloride 0.9% 10 Ml Flush Syringe IV Not Given BID YOSSI Sodium Chloride 10 ml 11/04/21 02:03 Sodium Chloride 0.9% 10 Ml Flush Syringe IV PRN PRN LINE FLUSH Sodium Chloride 10 ml 11/10/21 09:57 11/10/21 10:07 Sodium Chloride 0.9% 50 Ml Ivpb IV 10 ml PRN PRN Administration FLUSH Nutrition/Malnutrition Assess - Dietary Evaluation Nutrition/Malnutrition Findings: Nutrition Notes Start: 11/04/21 17:16 Freq: Status: Active Protocol: Document 11/10/21 16:03 ISABELL (Rec: 11/10/21 16:20 ISABELL [id number]) Nutrition Notes Current Diagnosis Diabetes,Sepsis,Hypertension, Respiratory Failure Other Pertinent Diagnosis Severe Sepsis/Bacteremia, Bilateral Pneumonia. Current Diet TF-Vital AF @ 60 ml/hr (since L 11/08). Height 5 ft Weight 58.967 kg [place] Body Weight (kg) 45.45 BMI 25.4 Weight change and time frame No body weight change reported . Weight Status Appropriate Subjective/Other Information RD consult for TF tolerance. TF well tolerated, according to RN notes. Percent of energy/protein needs met: Prescribed Vital AF @ 60 ml/hr provides for energy/protein needs (1,710 Kcal/107 g) during LOS, 100% Kcal; 100% AA . #1 Nutrition Diagnosis Inadequate oral intake Diagnosis Progress(for reassessment Continues documentation) Is patient on ventilator? Yes Is Patient Ambulatory and/or Out of Bed No REE-([facility]-confined to bed) 1166.664 Kcal/Kg value to use for calculation 29 Approximate Energy Requirements Using 1710 kcal/Kg Calculation Used for Recommendations Kcal/kg Additional Notes Protein: 70-118 g/day (1.2-2g/ kg BW/day) Fluids: 1 ml/kcal, or as per MD. Nutrition Intervention Nutrition Support: Continue Vital AF @ 60 ml/hr. Flush: 100 ml water Q 4 hr, or as per MD. Kcal 1,710 Protein (gm) 107 Carbohydrates (gm) 158 Fat (gm) 77 Fluid (mL) 1,156 Fiber (gm) 7 % RDI: 100% Kcal; 100% AA. Goal #1 Provide at least 75% of energy /protein needs through Enteral Feeding during LOS. Goal #2 Maintain body weight within +/ -3% of admission body weight during LOS. Follow-Up By: 11/17/21 Additional Comments Continue monitoring TF tolerance and BM. <LEAH ALFONSO - Last Filed: 11/14/21 09:41> Assessment and Plan Assessment and plan: I saw and evaluated the patient. I agree with the findings and the plan of care as documented in the Nurse Practitioner's~note, with the following corrections and additions. Hospitalist Physical - Constitutional Vitals: Temp Pulse Resp BP Pulse Ox 98.0 F 86 14 121/52 99 11/14/21 08:00 11/14/21 09:01 11/14/21 09:01 11/14/21 09:01 11/14/21 09:01 HEART Score - HEART Score Troponin: Troponin T 0.033 ng/mL (0.00-0.029) H 11/05/21 06:11 Results - Labs CBC & Chem 7: 11/14/21 04:46 11/14/21 04:46 Labs: Laboratory Last Values WBC 20.0 K/mm3 (4.5-11.0) H 11/14/21 04:46 RBC 3.41 M/mm3 (3.65-5.03) L 11/14/21 04:46 Hgb 7.9 gm/dl (10.1-14.3) L 11/14/21 04:46 Hct 26.8 % (30.3-42.9) L 11/14/21 04:46 MCV 79 fl (79-97) 11/14/21 04:46 MCH 23 pg (28-32) L 11/14/21 04:46 MCHC 29 % (30-34) L 11/14/21 04:46 RDW 24.0 % (13.2-15.2) H 11/14/21 04:46 Plt Count 146 K/mm3 (140-440) 11/14/21 04:46 Add Manual Diff Complete 11/06/21 15:50 Total Counted 100 11/06/21 15:50 Seg Neutrophils % Utility Maintenance Worker 11/06/21 15:50 Seg Neuts % (Manual) 92.0 % (40.0-70.0) H 11/06/21 15:50 Band Neutrophils % 0 % 11/06/21 15:50 Lymphocytes % (Manual) 5.0 % (13.4-35.0) L 11/06/21 15:50 Reactive Lymphs % (Man) 0 % 11/06/21 15:50 Monocytes % (Manual) 3.0 % (0.0-7.3) 11/06/21 15:50 Eosinophils % (Manual) 0 % (0.0-4.3) 11/06/21 15:50 Basophils % (Manual) 0 % (0.0-1.8) 11/06/21 15:50 Metamyelocytes % 0 % 11/06/21 15:50 Myelocytes % 0 % 11/06/21 15:50 Promyelocytes % 0 % 11/06/21 15:50 Blast Cells % 0 % 11/06/21 15:50 Nucleated RBC % Not Reportable 11/06/21 15:50 Seg Neutrophils # Man 23.5 K/mm3 (1.8-7.7) H 11/06/21 15:50 Band Neutrophils # 0.0 K/mm3 11/06/21 15:50 Lymphocytes # (Manual) 1.3 K/mm3 (1.2-5.4) 11/06/21 15:50 Abs React Lymphs (Man) 0.0 K/mm3 11/06/21 15:50 Monocytes # (Manual) 0.8 K/mm3 (0.0-0.8) 11/06/21 15:50 Eosinophils # (Manual) 0.0 K/mm3 (0.0-0.4) 11/06/21 15:50 Basophils # (Manual) 0.0 K/mm3 (0.0-0.1) 11/06/21 15:50 Metamyelocytes # 0.0 K/mm3 11/06/21 15:50 Myelocytes # 0.0 K/mm3 11/06/21 15:50 Promyelocytes # 0.0 K/mm3 11/06/21 15:50 Blast Cells # 0.0 K/mm3 11/06/21 15:50 WBC Morphology Not Reportable 11/06/21 15:50 Hypersegmented Neuts Not Reportable 11/06/21 15:50 Hyposegmented Neuts Not Reportable 11/06/21 15:50 Hypogranular Neuts Not Reportable 11/06/21 15:50 Smudge Cells Not Reportable 11/06/21 15:50 Toxic Granulation Not Reportable 11/06/21 15:50 Toxic Vacuolation Not Reportable 11/06/21 15:50 Dohle Bodies Not Reportable 11/06/21 15:50 Pelger-Huet Anomaly Not Reportable 11/06/21 15:50 Irina Rods Not Reportable 11/06/21 15:50 Platelet Estimate Consistent w auto 11/06/21 15:50 Clumped Platelets Not Reportable 11/06/21 15:50 Plt Clumps, EDTA Not Reportable 11/06/21 15:50 Large Platelets Not Reportable 11/06/21 15:50 Giant Platelets Not Reportable 11/06/21 15:50 Platelet Satelliting Not Reportable 11/06/21 15:50 Plt Morphology Comment Not Reportable 11/06/21 15:50 RBC Morphology Not Reportable 11/06/21 15:50 Dimorphic RBCs Not Reportable 11/06/21 15:50 Polychromasia Not Reportable 11/06/21 15:50 Hypochromasia 2+ 11/06/21 15:50 Poikilocytosis Not Reportable 11/06/21 15:50 Anisocytosis 1+ 11/06/21 15:50 Microcytosis Not Reportable 11/06/21 15:50 Macrocytosis Not Reportable 11/06/21 15:50 Spherocytes Not Reportable 11/06/21 15:50 Pappenheimer Bodies Not Reportable 11/06/21 15:50 Sickle Cells Not Reportable 11/06/21 15:50 Target Cells Not Reportable 11/06/21 15:50 Tear Drop Cells Not Reportable 11/06/21 15:50 Ovalocytes Not Reportable 11/06/21 15:50 Helmet Cells Not Reportable 11/06/21 15:50 [place] Bodies Not Reportable 11/06/21 15:50 [place] Rings Not Reportable 11/06/21 15:50 [place] Cells Not Reportable 11/06/21 15:50 Bite Cells Not Reportable 11/06/21 15:50 Crenated Cell Not Reportable 11/06/21 15:50 Elliptocytes Not Reportable 11/06/21 15:50 Acanthocytes (Spur) Not Reportable 11/06/21 15:50 Rouleaux Not Reportable 11/06/21 15:50 Hemoglobin C Crystals Not Reportable 11/06/21 15:50 Schistocytes Not Reportable 11/06/21 15:50 Malaria parasites Not Reportable 11/06/21 15:50 Godfrey Bodies Not Reportable 11/06/21 15:50 Hem Pathologist Commnt No 11/06/21 15:50 PT 18.6 Sec. (12.2-14.9) H 11/03/21 22:32 INR 1.40 (0.87-1.13) H 11/03/21 22:32 APTT 28.9 Sec. (24.2-36.6) 11/03/21 22:32 D-Dimer 2655.00 ng/mlDDU (0-234) H 11/11/21 04:28 ABG pH 7.586 pH Units (7.350-7.450) H 11/12/21 05:40 ABG pCO2 29.2 mm Hg 11/12/21 05:40 ABG pO2 150.6 mm Hg (80.0-90.0) H 11/12/21 05:40 ABG HCO3 27.2 mmol/L (20.0-26.0) H 11/12/21 05:40 ABG O2 Saturation 99.1 % (95.0-99.0) H 11/12/21 05:40 ABG O2 Content 10.6 (0.0-44) 11/12/21 05:40 ABG Base Excess 5.2 mmol/L (-2.0-3.0) H 11/12/21 05:40 ABG Hemoglobin 7.5 gm/dl (12.0-16.0) L 11/12/21 05:40 ABG Carboxyhemoglobin 1.7 % (0.0-5.0) 11/12/21 05:40 ABG Methemoglobin 0.5 % (0.0-1.5) 11/12/21 05:40 Oxyhemoglobin 96.9 % (95.0-99.0) 11/12/21 05:40 FiO2 50 % 11/12/21 05:40 Sodium 148 mmol/L (137-145) H 11/14/21 04:46 Potassium 4.1 mmol/L (3.6-5.0) 11/14/21 04:46 Chloride 113.1 mmol/L (98-107) H 11/14/21 04:46 Carbon Dioxide 24 mmol/L (22-30) 11/14/21 04:46 Anion Gap 15 mmol/L 11/14/21 04:46 BUN 43 mg/dL (7-17) H 11/14/21 04:46 Creatinine 0.7 mg/dL (0.6-1.2) 11/14/21 04:46 Estimated GFR > 60 ml/min 11/14/21 04:46 BUN/Creatinine Ratio 61 % 11/14/21 04:46 Glucose 140 mg/dL (65-100) H 11/14/21 04:46 POC Glucose 132 mg/dL (70-105) H 11/14/21 05:10 Lactic Acid 3.70 mmol/L (0.7-2.0) H* 11/03/21 22:32 Calcium 7.5 mg/dL (8.4-10.2) L 11/14/21 04:46 Phosphorus 4.40 mg/dL (2.5-4.5) D 11/13/21 06:30 Magnesium 2.40 mg/dL (1.7-2.3) H 11/13/21 06:30 Ferritin 52.6 ng/mL (10.0-200.0) 11/05/21 06:11 Total Bilirubin < 0.20 mg/dL (0.1-1.2) 11/13/21 06:30 Direct Bilirubin < 0.2 mg/dL (0-0.2) 11/11/21 04:28 Indirect Bilirubin 0.1 mg/dL 11/11/21 04:28 AST 35 units/L (5-40) 11/13/21 06:30 ALT 72 units/L (7-56) H 11/13/21 06:30 Alkaline Phosphatase 100 units/L (35-129) 11/13/21 06:30 Ammonia 42.0 umol/L (25-60) 11/10/21 14:08 Lactate Dehydrogenase 187 units/L (91-180) H 11/05/21 06:11 Troponin T 0.033 ng/mL (0.00-0.029) H 11/05/21 06:11 C-Reactive Protein 22.20 mg/dL (0.00-1.30) H 11/05/21 06:11 NT-Pro-B Natriuret Pep 7895 pg/mL (0-900) H 11/03/21 22:32 Total Protein 5.2 g/dL (6.3-8.2) L 11/13/21 06:30 Albumin 2.2 g/dL (3.9-5) L 11/13/21 06:30 Albumin/Globulin Ratio 0.7 % 11/13/21 06:30 Triglycerides 66 mg/dL (2-149) 11/03/21 22: Cholesterol 80 mg/dL (50-199) 11/03/21 22: LDL Cholesterol Direct 34 mg/dL (50-130) L 11/03/21 22: HDL Cholesterol 42 mg/dL (40-59) 11/03/21 22: Cholesterol/HDL Ratio 1.90 % 11/03/21 22:32 Vitamin B12 1823 pg/mL (211-911) H 11/10/21 14:08 TSH 1.510 mlU/mL (0.270-4.200) 11/10/21 14:08 Urine Color Yellow (Yellow) 11/11/21 09:00 Urine Turbidity Slightly-cloudy (Clear) 11/11/21 09:00 Urine pH 5.0 (5.0-7.0) 11/11/21 09:00 Ur Specific [place] 1.009 (1.003-1.030) 11/11/21 09:00 Urine Protein <15 mg/dl mg/dL (Negative) 11/11/21 09:00 Urine Glucose (UA) Neg mg/dL (Negative) 11/11/21 09:00 Urine Ketones Neg mg/dL (Negative) 11/11/21 09:00 Urine Blood Mod (Negative) 11/11/21 09:00 Urine Nitrite Neg (Negative) 11/11/21 09:00 Urine Bilirubin Neg (Negative) 11/11/21 09:00 Urine Urobilinogen < 2.0 mg/dL (<2.0) 11/11/21 09:00 Ur Leukocyte Esterase Neg (Negative) 11/11/21 09:00 Urine WBC (Auto) < 1.0 /HPF (0.0-6.0) 11/11/21 09:00 Urine RBC (Auto) < 1.0 /HPF (0.0-6.0) 11/11/21 09:00 Coronavirus (PCR) Negative (Negative) 11/10/21 08:30 Blood Type O POSITIVE 11/13/21 08:30 Antibody Screen Negative 11/13/21 08:30 Crossmatch See Detail 11/13/21 08:30 Microbiology: Microbiology 11/10/21 15:35 Tracheal Aspirate Sputum Culture - Final 11/11/21 14:22 Peripheral/Venous Blood Culture - Preliminary NO GROWTH AFTER 48 HOURS 11/11/21 14:36 Peripheral/Venous Blood Culture - Preliminary NO GROWTH AFTER 48 HOURS [place]/IV: Voiding Method Indwelling Catheter Active Medications - Current Medications Current Medications: Generic Name Dose Route Start Last Admin Trade Name Freq PRN Reason Stop Dose Admin Acetaminophen 650 mg 11/04/21 02:03 11/12/21 05:35 Acetaminophen 325 Mg Tab PO 650 mg Q6H PRN Administration Pain MILD(1-3)/Fever >100.5/RODRIGUEZ Lipase/Protease/Amylase 1 each 11/08/21 11:09 Lipase 10,500/Protease 25,000/Amylase 43,750 (Units) Cap FEEDTUBE PRN PRN For Clogged Feeding Tube Dextrose 0 ml 11/10/21 10:52 Dextrose 10% *Hypoglycemia IV PRN PRN Hypoglycemia Docusate Sodium 100 mg 11/08/21 12:00 11/13/21 21:39 Docusate Sodium 100 Mg/10 Ml Oral Liqd PO Not Given BID YOSSI Enoxaparin Sodium 60 mg 11/10/21 22:00 11/13/21 21:38 Enoxaparin 60 Mg/0.6 Ml Inj SUB-Q 60 mg Q12HR YOSSI Administration Protocol Famotidine 10 mg 11/11/21 22:00 11/13/21 21:38 Famotidine 10 Mg Tab FEEDTUBE 10 mg BID YOSSI Administration Fentanyl 50 mcg 11/11/21 16:22 11/13/21 18:01 Fentanyl 100 Mcg/2 Ml Inj IV 50 mcg Q10MIN PRN Administration ANALGESIA Furosemide 20 mg 11/08/21 18:00 11/14/21 06:25 Furosemide 20 Mg/2 Ml Inj IV 20 mg 0600,1800 YOSSI Administration Hydrophilic Ointment 1 applic 11/06/21 04:02 Lip Therapy Vaseline TP Q2HR PRN Dry Lips NORepinephrine/NS 8 MG-250 ML 8 mg in 250 mls @ 3.75 mls/hr 11/05/21 09:00 11/14/21 09:19 Norepinephrine/Ns 8 Mg-250 Ml (Double Conc) IV 0 mcg/min TITRATE YOSSI 0 mls/hr Titration Protocol 2 MCG/MIN Vasopressin 20 unit/ Sodium 101 mls @ 9.09 mls/hr 11/05/21 23:00 11/06/21 01:00 Chloride IV 0.03 units/min TITR YOSSI 9.09 mls/hr Administration Protocol 0.03 UNITS/MIN Fentanyl Citrate 2,000 mcg in 100 mls @ 3.12 mls/hr 11/11/21 17:00 11/14/21 04:20 Fentanyl Drip Premix IV 3 mcg/kg/hr TITR YOSSI 9.36 mls/hr Administration Protocol 1 MCG/KG/HR Cefepime HCl 1 gm in 100 mls @ 200 mls/hr 11/12/21 16:00 11/14/21 00:08 Cefepime/Ns 1 Gm/100 Ml IV 200 mls/hr Q8H YOSSI Administration Protocol Vancomycin HCl 1,250 mg/ 275 mls @ 166.667 mls/hr 11/12/21 15:00 11/13/21 15:15 Sodium Chloride IV 166.667 mls/hr Q24H YOSSI Administration Insulin Human Lispro 0 unit 11/06/21 12:00 11/14/21 06:25 Insulin Lispro 100 Unit/Ml SUB-Q Not Given Q6HR [facility] Protocol Levothyroxine Sodium 125 mcg 11/05/21 07:00 11/14/21 06:25 Levothyroxine 125 Mcg Tab PO 125 mcg DAILY@0600 [facility] Administration Magnesium Hydroxide 30 ml 11/04/21 02:03 Magnesium Hydroxide (Mom) Oral Liqd Udc PO Q4H PRN Constipation Multi-Ingred Cream/Lotion/Oil/Oint 1 applic 11/06/21 04:02 Mineral Oil/Petrolatum, White Ophth Oint 3.5 Gm OU Q4HR PRN Dry Eye(s) Ondansetron HCl 4 mg 11/04/21 02:03 11/05/21 15:48 Ondansetron 4 Mg/2 Ml Inj IV 4 mg Q8H PRN Administration Nausea And Vomiting Polyethylene Glycol 17 gm 11/08/21 12:00 11/13/21 09:10 Polyethylene Glycol 3350 17 Gm Powder PO 17 gm QDAY YOSSI Administration Senna 17.6 mg 11/08/21 22:00 11/13/21 21:39 Sennosides Oral Liqd 8.8 Mg/5 Ml Oral Liqd PO Not Given Q12HR YOSSI Simple Syrup 15 ml 11/08/21 11:09 Simple Syrup 15 Ml FEEDTUBE PRN PRN Hypoglycemia Simple Syrup 30 ml 11/08/21 11:09 Simple Syrup 15 Ml FEEDTUBE PRN PRN Hypoglycemia Sodium Bicarbonate 325 mg 11/08/21 11:09 Sodium Bicarbonate 325 Mg Tab FEEDTUBE PRN PRN For Clogged Feeding Tube Sodium Chloride 10 ml 11/04/21 10:00 11/13/21 21:39 Sodium Chloride 0.9% 10 Ml Flush Syringe IV 10 ml BID YOSSI Administration Sodium Chloride 10 ml 11/04/21 02:03 Sodium Chloride 0.9% 10 Ml Flush Syringe IV PRN PRN LINE FLUSH Sodium Chloride 10 ml 11/10/21 09:57 11/12/21 17:08 Sodium Chloride 0.9% 50 Ml Ivpb IV 10 ml PRN PRN Administration FLUSH Nutrition/Malnutrition Assess - Dietary Evaluation Nutrition/Malnutrition Findings: Nutrition Notes Start: 11/04/21 17:16 Freq: Status: Active Protocol: Document 11/10/21 16:03 ISABELL (Rec: 11/10/21 16:20 ISABELL [id number]) Nutrition Notes Current Diagnosis Diabetes,Sepsis,Hypertension, Respiratory Failure Other Pertinent Diagnosis Severe Sepsis/Bacteremia, Bilateral Pneumonia. Current Diet TF-Vital AF @ 60 ml/hr (since L 11/08). Height 5 ft Weight 58.967 kg [place] Body Weight (kg) 45.45 BMI 25.4 Weight change and time frame No body weight change reported . Weight Status Appropriate Subjective/Other Information RD consult for TF tolerance. TF well tolerated, according to RN notes. Percent of energy/protein needs met: Prescribed Vital AF @ 60 ml/hr provides for energy/protein needs (1,710 Kcal/107 g) during LOS, 100% Kcal; 100% AA . #1 Nutrition Diagnosis Inadequate oral intake Diagnosis Progress(for reassessment Continues documentation) Is patient on ventilator? Yes Is Patient Ambulatory and/or Out of Bed No REE-([place]. Jeor-confined to bed) 1166.664 Kcal/Kg value to use for calculation 29 Approximate Energy Requirements Using 1710 kcal/Kg Calculation Used for Recommendations Kcal/kg Additional Notes Protein: 70-118 g/day (1.2-2g/ kg BW/day) Fluids: 1 ml/kcal, or as per MD. Nutrition Intervention Nutrition Support: Continue Vital AF @ 60 ml/hr. Flush: 100 ml water Q 4 hr, or as per MD. Kcal 1,710 Protein (gm) 107 Carbohydrates (gm) 158 Fat (gm) 77 Fluid (mL) 1,156 Fiber (gm) 7 % RDI: 100% Kcal; 100% AA. Goal #1 Provide at least 75% of energy /protein needs through Enteral Feeding during LOS. Goal #2 Maintain body weight within +/ -3% of admission body weight during LOS. Follow-Up By: 11/17/21 Additional Comments Continue monitoring TF tolerance and BM.
[2021-11-10] MEDS: ENOXAPARIN 60 MG/0.6 ML INJ SUB-Q SCH (21:40)
[2021-11-11] MEDS: INSULIN LISPRO 100 UNIT/ML SUB-Q SCH ×3 (01:06→18:44)
[2021-11-11] MEDS: ACETYLCYSTEINE 20% 200 MG/1 ML *FOR INHALATION USE INHALATION SCH (01:56)
[2021-11-11] MEDS: ALBUTEROL 2.5 MG/3 ML NEBU IH SCH (01:56)
[2021-11-11 05:12] LABS: Mean Corpuscular HGB Conc 29 % (30-34); Mean Corpuscular Volume 75 fl (79-97); Platelet Count 132 K/mm3 (140-440); Red Blood Count 3.47 M/mm3 (3.65-5.03)
[2021-11-11 05:22] LABS: Hemoglobin 7.5 gm/dl (10.1-14.3); Red Cell Distribution Width 21.6 % (13.2-15.2)
[2021-11-11 05:35] LABS: Alanine Aminotransferase 203 units/L (7-56); Albumin 2.6 g/dL (3.9-5); Blood Urea Nitrogen 34 mg/dL (7-17); Calcium 7.9 mg/dL (8.4-10.2); Hemolysis Index 0
[2021-11-11 05:40] LABS: BUN/Creatinine Ratio 57; Bilirubin,Direct < 0.2 mg/dL (0-0.2)
[2021-11-11] MEDS: FUROSEMIDE 20 MG/2 ML INJ IV SCH (05:59)
[2021-11-11] MEDS: LEVOTHYROXINE 125 MCG TAB PO SCH (05:59)
[2021-11-11] MEDS: ACETAMINOPHEN 325 MG TAB PO PRN ×2 (08:40→21:17)
--- NOTE | 2021-11-11 08:58 | Electrocardiograph Report ---
[facility] Test Date: 2021-11-10 Test Time: 11:11:46 Pat Name: ENRRIQUE GLASS Department: Room: A262 1 Gender: F Debate Director: BONG : [id number] Requested By: SORIN BILLY Order Number: [id number] Reading MD: Gabino Griggs Measurements Intervals [place] Rate: 95 P: -61 MT: 148 QRS: -47 QRSD: 126 T: 141 QT: 363 QTc: 457 Interpretive Statements Sinus or ectopic atrial rhythm Nonspecific IVCD poor r wave progression Abnormal T, consider ischemia, lateral leads No previous ECG available for comparison Electronically Signed On 11-11-2021 8:57:39 EST by Gabino Griggs
[2021-11-11 09:26] LABS: Bilirubin,Urine NEG (Negative); Blood,Urine MOD (Negative); Color,Urine Yellow (Yellow); Protein,Urine <15 mg/dL mg/dL (Negative); Urobilinogen,Urine < 2.0 mg/dL (<2.0); WBC,Urine < 1.0 /HPF (0.0-6.0)
[2021-11-11 09:30] LABS: RBC,Urine < 1.0 /HPF (0.0-6.0)
--- NOTE | 2021-11-11 09:59 | XRay Report ---
CHEST 1 VIEW INDICATION / CLINICAL INFORMATION: fevers. COMPARISON: 11/09/2021 FINDINGS: SUPPORT DEVICES: Unchanged. HEART / MEDIASTINUM: Largely obscured LUNGS / PLEURA: Severe interval increase in consolidation of the left hemithorax with essentially com plete opacification of the left hemithorax. Right basilar airspace disease and suspected right pleura l effusion are again demonstrated and not significantly changed. No pneumothorax. ADDITIONAL FINDINGS: No significant additional findings. IMPRESSION: 1. Interval worsening, now with essentially complete opacification of the left hemithorax. 2. Right basilar airspace disease and layering right pleural effusion are not significantly changed. Signer Name: Fan Khan MD Signed: 11/11/2021 9:54 AM Workstation Name: [id number]
[2021-11-11] MEDS ORDERED: FAMOTIDINE 10 MG TAB PO SCH (10:00)
[2021-11-11] MEDS: POLYETHYLENE GLYCOL 3350 17 GM POWDER PO SCH (10:09)
[2021-11-11] MEDS: SENNOSIDES ORAL LIQD 8.8 MG/5 ML ORAL LIQD PO SCH ×2 (10:09→21:19)
[2021-11-11] MEDS: ENOXAPARIN 60 MG/0.6 ML INJ SUB-Q SCH ×2 (10:09→21:18)
[2021-11-11] MEDS: DOCUSATE SODIUM 100 MG/10 ML ORAL LIQD PO SCH ×2 (10:09→21:17)
[2021-11-11] MEDS: cefTRIAXone/NS 2 GM/100 ML 2 GM/100 ML BAG IV SCH (10:09)
[2021-11-11] MEDS: METOPROLOL TARTRATE 25 MG TAB PO SCH (10:09)
[2021-11-11] MEDS ORDERED: METOPROLOL TARTRATE 25 MG TAB PO SCH (11:00)
--- NOTE | 2021-11-11 11:45 | Progress Note ---
Assessment and Plan 81-year-old female with known history of diabetes mellitus, hypertension and arthritis brought to the emergency room via EMS today for shortness of breath which has been ongoing for the past 3 days. Patient has been having some cough and shortness of breath. According to patient's , patient has also been having a fever of about 102.2 F. Upon arrival of EMS patient was found to be tachypneic with O2 saturation of 76% on room air which later improved to 88% on nonrebreather. Work-up in the emergency room today, chest x-ray shows bilateral interstitial pulmonary edema with bilateral pleural effusions.. Bibasilar opacities which favors atelectasis. Assessment and Plan #Acute Encephalopathy - related to infectious process- off sedation today -Ct brain showed no acute event -EEG is pending -MRI brain unable to do due to pace maker - will repeat CT brain #Septic Shock POA #Bilateral Pneumonia #Bacteremia - Presented with fevers, leukocytosis, and hypotension - COVID PCR negative - 11/04 B.cult with 3/4 group B strep bacteremia - 11/04 2D Echo with no evidence of vegetation - Trend CBC #Acute Hypoxic Respiratory Failure 2/2 #Bilateral Pleural Effusion #Bilateral Pneumonia - COVID PCR negative - CXR shows Bilateral opacities, may be volume overloaded. #CHF- EF 30-35% with PPM #Hypotension-improved #Septic Kristian - Was on 3 pressors initially - Off pressors - SR on the monitor, HR 70-90s - 11/04 Echo-EF 30-35% - Maintain MAP above 65 #Acute Microcytic Anemia # Positive US lEs in Right external iliac vein , right common femoral vein and superior aspect right femoral vein #Transaminitis/Shock Liver #DVT Prophylaxis - Continue AC- heparin subQ-Full dose - SCDs to bilateral lower extremities while in bed HARVINDER 1- Hold sedation/ hydration 2- EEG 3- treat underlying infection 4- repeat Ct brain 5- Sq heparin 6- MRI brain can not be done due to pace maker will follow prognosis is quarded Subjective Date of service: 11/11/21 Principal diagnosis: Septic shock; AHRF; Anemia; Pneumonia; L. pleural effusion; HFrEF; Pulm HTN Interval history: continues to be intubated unresponsive , positive blood cls plus pneumonia -she is off sedation could not do MRI due to pace maker eeg is pending Ammonia#[id number] b12 and folate wnl US les is remarkable for DVT iliac and femral veins she is on SQ heparin Objective - Vital Sign Vital Signs - 12hr 11/10/21 11/11/21 11/11/21 23:51 00:00 00:11 Temperature 100.6 F H Pulse Rate 89 91 H 94 H Pulse Rate [ Anterior Throughout] Pulse Rate [ 94 H From Monitor] Respiratory 16 21 21 Rate Respiratory Rate [Anterior Throughout] Blood Pressure 110/47 120/59 120/59 O2 Sat by Pulse 98 98 99 Oximetry 11/11/21 11/11/21 11/11/21 00:21 00:31 00:41 Temperature Pulse Rate 90 85 95 H Pulse Rate [ Anterior Throughout] Pulse Rate [ From Monitor] Respiratory 16 16 15 Rate Respiratory Rate [Anterior Throughout] Blood Pressure 120/59 120/59 120/59 O2 Sat by Pulse 99 99 100 Oximetry 11/11/21 11/11/21 11/11/21 00:51 01:00 01:11 Temperature Pulse Rate 89 95 H 100 H Pulse Rate [ Anterior Throughout] Pulse Rate [ From Monitor] Respiratory 15 18 16 Rate Respiratory Rate [Anterior Throughout] Blood Pressure 120/59 133/63 133/63 O2 Sat by Pulse 100 100 100 Oximetry 11/11/21 11/11/21 11/11/21 01:21 01:31 01:41 Temperature Pulse Rate 97 H 96 H 95 H Pulse Rate [ Anterior Throughout] Pulse Rate [ From Monitor] Respiratory 18 20 18 Rate Respiratory Rate [Anterior Throughout] Blood Pressure 133/63 133/63 133/63 O2 Sat by Pulse 100 100 100 Oximetry 11/11/21 11/11/21 11/11/21 01:51 02:00 02:11 Temperature Pulse Rate 98 H 99 H 94 H Pulse Rate [ Anterior Throughout] Pulse Rate [ From Monitor] Respiratory 18 19 17 Rate Respiratory Rate [Anterior Throughout] Blood Pressure 133/63 144/62 144/62 O2 Sat by Pulse 100 100 100 Oximetry 11/11/21 11/11/21 11/11/21 02:21 02:31 02:41 Temperature Pulse Rate 101 H 98 H 99 H Pulse Rate [ Anterior Throughout] Pulse Rate [ From Monitor] Respiratory 16 16 22 Rate Respiratory Rate [Anterior Throughout] Blood Pressure 144/62 144/62 144/62 O2 Sat by Pulse 99 100 100 Oximetry 11/11/21 11/11/21 11/11/21 02:51 03:00 03:11 Temperature Pulse Rate 102 H 100 H 103 H Pulse Rate [ Anterior Throughout] Pulse Rate [ From Monitor] Respiratory 19 19 22 Rate Respiratory Rate [Anterior Throughout] Blood Pressure 144/62 132/66 132/66 O2 Sat by Pulse 100 100 100 Oximetry 11/11/21 11/11/21 11/11/21 03:21 03:31 03:41 Temperature Pulse Rate 101 H 101 H 104 H Pulse Rate [ Anterior Throughout] Pulse Rate [ From Monitor] Respiratory 20 19 20 Rate Respiratory Rate [Anterior Throughout] Blood Pressure 132/66 132/66 132/66 O2 Sat by Pulse 100 100 100 Oximetry 11/11/21 11/11/21 11/11/21 03:48 03:51 04:00 Temperature 99.7 F H 99.7 F H Pulse Rate 102 H 103 H Pulse Rate [ Anterior Throughout] Pulse Rate [ 88 From Monitor] Respiratory 19 18 Rate Respiratory Rate [Anterior Throughout] Blood Pressure 132/66 130/60 O2 Sat by Pulse 100 100 Oximetry 11/11/21 11/11/21 11/11/21 04:11 04:21 04:31 Temperature Pulse Rate 102 H 104 H 110 H Pulse Rate [ Anterior Throughout] Pulse Rate [ From Monitor] Respiratory 16 17 21 Rate Respiratory Rate [Anterior Throughout] Blood Pressure 130/60 130/60 130/60 O2 Sat by Pulse 99 100 100 Oximetry 11/11/21 11/11/21 11/11/21 04:32 04:41 04:51 Temperature Pulse Rate 106 H 105 H 107 H Pulse Rate [ Anterior Throughout] Pulse Rate [ From Monitor] Respiratory 15 21 Rate Respiratory Rate [Anterior Throughout] Blood Pressure 130/60 130/60 130/60 O2 Sat by Pulse 100 100 100 Oximetry 11/11/21 11/11/21 11/11/21 05:00 05:11 05:21 Temperature Pulse Rate 104 H 107 H 106 H Pulse Rate [ Anterior Throughout] Pulse Rate [ From Monitor] Respiratory 20 18 22 Rate Respiratory Rate [Anterior Throughout] Blood Pressure 123/55 123/55 123/55 O2 Sat by Pulse 99 99 100 Oximetry 11/11/21 11/11/21 11/11/21 05:31 05:41 05:51 Temperature Pulse Rate 107 H 108 H 108 H Pulse Rate [ Anterior Throughout] Pulse Rate [ From Monitor] Respiratory 22 19 21 Rate Respiratory Rate [Anterior Throughout] Blood Pressure 123/55 123/55 123/55 O2 Sat by Pulse 100 100 100 Oximetry 11/11/21 11/11/21 11/11/21 06:00 06:11 06:21 Temperature Pulse Rate 107 H 109 H 109 H Pulse Rate [ Anterior Throughout] Pulse Rate [ From Monitor] Respiratory 15 21 21 Rate Respiratory Rate [Anterior Throughout] Blood Pressure 134/66 134/66 134/66 O2 Sat by Pulse 100 100 100 Oximetry 11/11/21 11/11/21 11/11/21 06:31 06:41 06:51 Temperature Pulse Rate 108 H 105 H 107 H Pulse Rate [ Anterior Throughout] Pulse Rate [ From Monitor] Respiratory 15 22 23 Rate Respiratory Rate [Anterior Throughout] Blood Pressure 134/66 134/66 134/66 O2 Sat by Pulse 100 99 99 Oximetry 11/11/21 11/11/21 11/11/21 07:00 08:00 08:40 Temperature 100.3 F H Pulse Rate 109 H 116 H Pulse Rate [ Anterior Throughout] Pulse Rate [ From Monitor] Respiratory 21 Rate Respiratory Rate [Anterior Throughout] Blood Pressure 143/64 143/64 O2 Sat by Pulse 100 98 Oximetry 11/11/21 11/11/21 08:45 10:09 Temperature Pulse Rate 115 H Pulse Rate [ 118 H Anterior Throughout] Pulse Rate [ From Monitor] Respiratory Rate Respiratory 15 Rate [Anterior Throughout] Blood Pressure 136/53 O2 Sat by Pulse Oximetry - General Apperance Constitutional: comfortable - EENT EENT: PERRL, mucous membranes moist - Respiratory Respiratory: lungs clear, rales, rhonchi - Cardiovascular Cardiovascular: regular rate, normal S1, normal S2 Extremities: no peripheral edema bilat, no clubbing, cyanosis - Gastrointestinal Gastrointestinal: normoactive bowel sounds - Integumentary Integumentary: normal - Neurologic Cranial nerve examination: PERRL, EOMI, intact Speech examination: other (intubated unresponsive) Detailed motor examination: other (slight withdrawal of feet to stimulation) - Laboratory Findings CBC and BMP: 11/11/21 04:28 11/11/21 04:28 Abnormal Lab Findings: Abnormal Labs 11/03/21 11/03/21 11/03/21 22:32 22:32 22:32 WBC 29.3 H RBC 2.93 L Hgb 6.1 L Hct 21.9 L MCV 75 L MCH 21 L MCHC 28 L RDW 19.7 H Plt Count Seg Neuts % (Manual) 97.0 H Lymphocytes % (Manual) 3.0 L Seg Neutrophils # Man 28.4 H Lymphocytes # (Manual) 0.9 L Monocytes # (Manual) PT 18.6 H INR 1.40 H D-Dimer ABG pH ABG pO2 ABG HCO3 ABG O2 Saturation ABG Base Excess ABG Hemoglobin Oxyhemoglobin Sodium Potassium Chloride Carbon Dioxide 20 L BUN 33 H Glucose 119 H POC Glucose Lactic Acid Calcium 8.3 L AST ALT Alkaline Phosphatase Lactate Dehydrogenase Troponin T 0.035 H C-Reactive Protein NT-Pro-B Natriuret Pep Total Protein Albumin LDL Cholesterol Direct 34 L Vitamin B12 Crossmatch 11/03/21 11/03/21 11/03/21 22:32 22:32 23:57 WBC RBC Hgb Hct MCV MCH MCHC RDW Plt Count Seg Neuts % (Manual) Lymphocytes % (Manual) Seg Neutrophils # Man Lymphocytes # (Manual) Monocytes # (Manual) PT INR D-Dimer ABG pH ABG pO2 ABG HCO3 ABG O2 Saturation ABG Base Excess ABG Hemoglobin Oxyhemoglobin Sodium Potassium Chloride Carbon Dioxide BUN Glucose POC Glucose Lactic Acid 3.70 H* Calcium AST ALT Alkaline Phosphatase 139 H Lactate Dehydrogenase Troponin T C-Reactive Protein NT-Pro-B Natriuret Pep 7895 H Total Protein Albumin 3.5 L LDL Cholesterol Direct Vitamin B12 Crossmatch See Detail 11/04/21 11/04/21 11/05/21 00:59 13:58 00:51 WBC 27.9 H RBC 3.28 L Hgb 7.3 L Hct 25.5 L MCV 78 L MCH 22 L MCHC 29 L RDW 19.1 H Plt Count Seg Neuts % (Manual) 96.0 H Lymphocytes % (Manual) 2.0 L Seg Neutrophils # Man 26.8 H Lymphocytes # (Manual) 0.6 L Monocytes # (Manual) PT INR D-Dimer ABG pH ABG pO2 ABG HCO3 ABG O2 Saturation ABG Base Excess ABG Hemoglobin Oxyhemoglobin Sodium Potassium Chloride Carbon Dioxide BUN Glucose POC Glucose Lactic Acid Calcium AST ALT Alkaline Phosphatase Lactate Dehydrogenase Troponin T 0.051 H D 0.032 H D C-Reactive Protein NT-Pro-B Natriuret Pep Total Protein Albumin LDL Cholesterol Direct Vitamin B12 Crossmatch 11/05/21 11/05/21 11/05/21 06:11 06:11 06:11 WBC 31.8 H RBC 3.57 L Hgb 8.0 L Hct 27.7 L MCV 78 L MCH 22 L MCHC 29 L RDW 19.2 H Plt Count Seg Neuts % (Manual) 91.0 H Lymphocytes % (Manual) 4.5 L Seg Neutrophils # Man 28.9 H Lymphocytes # (Manual) Monocytes # (Manual) 1.1 H PT INR D-Dimer 1494.53 H ABG pH ABG pO2 ABG HCO3 ABG O2 Saturation ABG Base Excess ABG Hemoglobin Oxyhemoglobin Sodium Potassium Chloride Carbon Dioxide 19 L BUN 42 H Glucose 115 H POC Glucose Lactic Acid Calcium AST 43 H ALT Alkaline Phosphatase Lactate Dehydrogenase 187 H Troponin T C-Reactive Protein 22.20 H NT-Pro-B Natriuret Pep Total Protein 6.0 L Albumin 3.2 L LDL Cholesterol Direct Vitamin B12 Crossmatch 11/05/21 11/05/21 11/06/21 06:11 12:15 00:30 WBC RBC Hgb Hct MCV MCH MCHC RDW Plt Count Seg Neuts % (Manual) Lymphocytes % (Manual) Seg Neutrophils # Man Lymphocytes # (Manual) Monocytes # (Manual) PT INR D-Dimer ABG pH ABG pO2 ABG HCO3 ABG O2 Saturation ABG Base Excess ABG Hemoglobin Oxyhemoglobin Sodium Potassium Chloride Carbon Dioxide BUN Glucose POC Glucose 113 H 69 L Lactic Acid Calcium AST ALT Alkaline Phosphatase Lactate Dehydrogenase Troponin T 0.033 H C-Reactive Protein NT-Pro-B Natriuret Pep Total Protein Albumin LDL Cholesterol Direct Vitamin B12 Crossmatch 11/06/21 11/06/21 11/06/21 05:50 15:50 15:50 WBC 25.5 H RBC 3.62 L Hgb 8.0 L Hct 27.5 L MCV 76 L MCH 22 L MCHC 29 L RDW 19.6 H Plt Count Seg Neuts % (Manual) 92.0 H Lymphocytes % (Manual) 5.0 L Seg Neutrophils # Man 23.5 H Lymphocytes # (Manual) Monocytes # (Manual) PT INR D-Dimer ABG pH 7.305 L ABG pO2 ABG HCO3 15.8 L ABG O2 Saturation ABG Base Excess -9.6 L ABG Hemoglobin 8.6 L Oxyhemoglobin 94.6 L Sodium Potassium Chloride 113.9 H Carbon Dioxide 17 L BUN 56 H Glucose 114 H POC Glucose Lactic Acid Calcium 7.9 L AST 1410 H ALT 934 H Alkaline Phosphatase 142 H Lactate Dehydrogenase Troponin T C-Reactive Protein NT-Pro-B Natriuret Pep Total Protein 5.0 L Albumin 2.6 L LDL Cholesterol Direct Vitamin B12 Crossmatch 11/07/21 11/07/21 11/07/21 03:30 04:50 08:07 WBC RBC Hgb Hct MCV MCH MCHC RDW Plt Count Seg Neuts % (Manual) Lymphocytes % (Manual) Seg Neutrophils # Man Lymphocytes # (Manual) Monocytes # (Manual) PT INR D-Dimer ABG pH ABG pO2 296.9 H ABG HCO3 18.1 L ABG O2 Saturation 99.5 H ABG Base Excess -5.9 L ABG Hemoglobin 7.6 L Oxyhemoglobin Sodium Potassium Chloride Carbon Dioxide BUN Glucose POC Glucose 106 H 108 H Lactic Acid Calcium AST ALT Alkaline Phosphatase Lactate Dehydrogenase Troponin T C-Reactive Protein NT-Pro-B Natriuret Pep Total Protein Albumin LDL Cholesterol Direct Vitamin B12 Crossmatch 11/08/21 11/08/21 11/08/21 03:10 18:05 23:43 WBC RBC Hgb Hct MCV MCH MCHC RDW Plt Count Seg Neuts % (Manual) Lymphocytes % (Manual) Seg Neutrophils # Man Lymphocytes # (Manual) Monocytes # (Manual) PT INR D-Dimer ABG pH ABG pO2 127.4 H ABG HCO3 ABG O2 Saturation ABG Base Excess -3.4 L ABG Hemoglobin 7.4 L Oxyhemoglobin Sodium Potassium Chloride Carbon Dioxide BUN Glucose POC Glucose 113 H 141 H Lactic Acid Calcium AST ALT Alkaline Phosphatase Lactate Dehydrogenase Troponin T C-Reactive Protein NT-Pro-B Natriuret Pep Total Protein Albumin LDL Cholesterol Direct Vitamin B12 Crossmatch 11/08/21 11/08/21 11/09/21 Unknown Unknown 02:00 WBC 14.5 H RBC 3.35 L Hgb 7.5 L 8.1 L Hct 25.4 L 27.6 L MCV 76 L 76 L MCH 23 L 22 L MCHC RDW 19.9 H 19.9 H Plt Count Seg Neuts % (Manual) Lymphocytes % (Manual) Seg Neutrophils # Man Lymphocytes # (Manual) Monocytes # (Manual) PT INR D-Dimer ABG pH ABG pO2 ABG HCO3 ABG O2 Saturation ABG Base Excess ABG Hemoglobin Oxyhemoglobin Sodium 154 H D Potassium 3.3 L Chloride 120.7 H Carbon Dioxide 20 L BUN 38 H Glucose POC Glucose Lactic Acid Calcium 8.3 L AST ALT Alkaline Phosphatase Lactate Dehydrogenase Troponin T C-Reactive Protein NT-Pro-B Natriuret Pep Total Protein Albumin LDL Cholesterol Direct Vitamin B12 Crossmatch 11/09/21 11/09/21 11/09/21 02:00 02:31 05:12 WBC RBC Hgb Hct MCV MCH MCHC RDW Plt Count Seg Neuts % (Manual) Lymphocytes % (Manual) Seg Neutrophils # Man Lymphocytes # (Manual) Monocytes # (Manual) PT INR D-Dimer ABG pH 7.479 H ABG pO2 121.3 H ABG HCO3 ABG O2 Saturation ABG Base Excess ABG Hemoglobin 7.3 L Oxyhemoglobin Sodium Potassium Chloride 112.5 H Carbon Dioxide BUN 33 H Glucose 161 H POC Glucose 135 H Lactic Acid Calcium AST 251 H ALT 481 H Alkaline Phosphatase Lactate Dehydrogenase Troponin T C-Reactive Protein NT-Pro-B Natriuret Pep Total Protein 5.0 L Albumin 2.8 L LDL Cholesterol Direct Vitamin B12 Crossmatch 11/09/21 11/09/21 11/09/21 11:33 16:32 23:28 WBC RBC Hgb Hct MCV MCH MCHC RDW Plt Count Seg Neuts % (Manual) Lymphocytes % (Manual) Seg Neutrophils # Man Lymphocytes # (Manual) Monocytes # (Manual) PT INR D-Dimer ABG pH ABG pO2 ABG HCO3 ABG O2 Saturation ABG Base Excess ABG Hemoglobin Oxyhemoglobin Sodium Potassium Chloride Carbon Dioxide BUN Glucose POC Glucose 132 H 133 H 143 H Lactic Acid Calcium AST ALT Alkaline Phosphatase Lactate Dehydrogenase Troponin T C-Reactive Protein NT-Pro-B Natriuret Pep Total Protein Albumin LDL Cholesterol Direct Vitamin B12 Crossmatch 11/10/21 11/10/21 11/10/21 04:00 04:00 05:35 WBC 16.0 H RBC 3.61 L Hgb 8.0 L Hct 27.1 L MCV 75 L MCH 22 L MCHC RDW 20.4 H Plt Count Seg Neuts % (Manual) Lymphocytes % (Manual) Seg Neutrophils # Man Lymphocytes # (Manual) Monocytes # (Manual) PT INR D-Dimer ABG pH ABG pO2 ABG HCO3 ABG O2 Saturation ABG Base Excess ABG Hemoglobin Oxyhemoglobin Sodium 149 H Potassium Chloride 114.1 H Carbon Dioxide BUN 31 H Glucose 148 H POC Glucose 132 H Lactic Acid Calcium 8.2 L AST ALT Alkaline Phosphatase Lactate Dehydrogenase Troponin T C-Reactive Protein NT-Pro-B Natriuret Pep Total Protein Albumin LDL Cholesterol Direct Vitamin B12 Crossmatch 11/10/21 11/10/21 11/10/21 11:31 14:08 15:35 WBC RBC Hgb Hct MCV MCH MCHC RDW Plt Count Seg Neuts % (Manual) Lymphocytes % (Manual) Seg Neutrophils # Man Lymphocytes # (Manual) Monocytes # (Manual) PT INR D-Dimer ABG pH ABG pO2 126.6 H ABG HCO3 ABG O2 Saturation ABG Base Excess ABG Hemoglobin 7.4 L Oxyhemoglobin Sodium Potassium Chloride Carbon Dioxide BUN Glucose POC Glucose 147 H Lactic Acid Calcium AST ALT Alkaline Phosphatase Lactate Dehydrogenase Troponin T C-Reactive Protein NT-Pro-B Natriuret Pep Total Protein Albumin LDL Cholesterol Direct Vitamin B12 1823 H Crossmatch 11/10/21 11/11/21 11/11/21 17:53 00:55 04:28 WBC RBC Hgb Hct MCV MCH MCHC RDW Plt Count Seg Neuts % (Manual) Lymphocytes % (Manual) Seg Neutrophils # Man Lymphocytes # (Manual) Monocytes # (Manual) PT INR D-Dimer ABG pH ABG pO2 ABG HCO3 ABG O2 Saturation ABG Base Excess ABG Hemoglobin Oxyhemoglobin Sodium 149 H Potassium Chloride 112.2 H Carbon Dioxide BUN 34 H Glucose 148 H POC Glucose 140 H 145 H Lactic Acid Calcium 7.9 L AST 53 H ALT 203 H Alkaline Phosphatase Lactate Dehydrogenase Troponin T C-Reactive Protein NT-Pro-B Natriuret Pep Total Protein 4.9 L Albumin 2.6 L LDL Cholesterol Direct Vitamin B12 Crossmatch 11/11/21 11/11/21 11/11/21 04:28 04:28 05:28 WBC 20.9 H RBC 3.47 L Hgb 7.5 L Hct 26.0 L MCV 75 L MCH 22 L MCHC 29 L RDW 21.6 H Plt Count 132 L Seg Neuts % (Manual) Lymphocytes % (Manual) Seg Neutrophils # Man Lymphocytes # (Manual) Monocytes # (Manual) PT INR D-Dimer 2655.00 H ABG pH ABG pO2 ABG HCO3 ABG O2 Saturation ABG Base Excess ABG Hemoglobin Oxyhemoglobin Sodium Potassium Chloride Carbon Dioxide BUN Glucose POC Glucose 154 H Lactic Acid Calcium AST ALT Alkaline Phosphatase Lactate Dehydrogenase Troponin T C-Reactive Protein NT-Pro-B Natriuret Pep Total Protein Albumin LDL Cholesterol Direct Vitamin B12 Crossmatch
--- NOTE | 2021-11-11 13:13 | Progress Note ---
Assessment and Plan Severe Sepsis POA vs septic shock- 11/03/2021 blood culture: 2 sets positive for GPC Acute respiratory failure with hypoxia, now on MVS Acute microcytic anemia Bilateral pneumonia Left pleural effusion Cardiomyopathy EF 30-35% Moderate pulmonary HTN RVSP 49 - fiberoptic bronchoscopy done to open up left lung - ETT changed to a #7.5 over bougie (was a 6.0) - repeat CXR revealed right pneumothorax and s/p right chest tube (emergently done due to new onset hypotension) - follow post chest tube CXR - US Chest with small L>R effusions - lower extremity dopplers revealed acute right iliac DVT; continue treatment dose Lovenox - continue care as below otherwise; - Daily SAT and SBT assessment as tolerated - continue to wean supplemental oxygen for target O2 sat's > 90% acutely - VAP bundle addressed - continue lung protective strategies - continue bronchodilators with pulmonary hygiene per RT - wean per pulmonary driven protocols otherwise - avoid nephrotoxins, renally dose all medications - continue accuchecks with glycemic control per SSI (While critically ill target blood glucose of 140-180 mg/dL; avoid hypoglycemia) - sedation prn for target RASS 0 to -1 - antibiotics per ID recommendations - continue to avoid benzodiazepine's, reduce the possibility of delirium - prn analgesia per CPOT score - Maintenance of sleep-wake cycle, avoid delirium - continue enteral nutritional support at goal rate as tolerated - G.I. & VTE prophylaxis - PT/OT/ROM exercises - continue mobility protocols for pressure ulcer prophylaxis - Monitor hemodynamics closely - continue other care per attending / other consultants - discharge planning ongoing concurrently COVID SPECIFIC INTERVENTIONS - COVID-19 PCR negative .... Re-evaluate in am & prn CONDITION: CRITICAL PROGNOSIS: GUARDED CODE STATUS: FULL CODE The high probability of a clinically significant, sudden or life-threatening deterioration of the [respiratory, cardiovascular & neurologic] system(s) required my full and direct attention, intervention and personal management. The aggregate critical care time was [40] minutes without overlap. Time includes spent on; [x] Data Review and interpretation [x] Patient assessment and monitoring of vital signs [x] Documentation [x] Medication orders and management Subjective Date of service: 11/11/21 Principal diagnosis: Septic shock; AHRF; Anemia; Pneumonia; L. pleural effusion; HFrEF; Pulm HTN Interval history: Patient is seen today for: Septic shock; Acute hypoxemic respiratory failure; Anemia; Bilateral pneumonia; Left pleural effusion; HFrEF 30-35%; Pulm HTN RVSP 49 Seen and examined at bedside; 24hour events reviewed; nursing and respiratory care staff consulted; no adverse overnight events reported to me; resting in bed; remains on MVS; CXR with left lung atelectasis likely related to mucus plug; no emesis or overt aspiration but AMS is persistent Objective Vital Signs - 12hr 11/11/21 11/11/21 11/11/21 01:21 01:31 01:41 Temperature Pulse Rate 97 H 96 H 95 H Pulse Rate [ Anterior Throughout] Pulse Rate [ From Monitor] Respiratory 18 20 18 Rate Respiratory Rate [Anterior Throughout] Blood Pressure 133/63 133/63 133/63 O2 Sat by Pulse 100 100 100 Oximetry 11/11/21 11/11/21 11/11/21 01:51 02:00 02:11 Temperature Pulse Rate 98 H 99 H 94 H Pulse Rate [ Anterior Throughout] Pulse Rate [ From Monitor] Respiratory 18 19 17 Rate Respiratory Rate [Anterior Throughout] Blood Pressure 133/63 144/62 144/62 O2 Sat by Pulse 100 100 100 Oximetry 11/11/21 11/11/21 11/11/21 02:21 02:31 02:41 Temperature Pulse Rate 101 H 98 H 99 H Pulse Rate [ Anterior Throughout] Pulse Rate [ From Monitor] Respiratory 16 16 22 Rate Respiratory Rate [Anterior Throughout] Blood Pressure 144/62 144/62 144/62 O2 Sat by Pulse 99 100 100 Oximetry 11/11/21 11/11/21 11/11/21 02:51 03:00 03:11 Temperature Pulse Rate 102 H 100 H 103 H Pulse Rate [ Anterior Throughout] Pulse Rate [ From Monitor] Respiratory 19 19 22 Rate Respiratory Rate [Anterior Throughout] Blood Pressure 144/62 132/66 132/66 O2 Sat by Pulse 100 100 100 Oximetry 11/11/21 11/11/21 11/11/21 03:21 03:31 03:41 Temperature Pulse Rate 101 H 101 H 104 H Pulse Rate [ Anterior Throughout] Pulse Rate [ From Monitor] Respiratory 20 19 20 Rate Respiratory Rate [Anterior Throughout] Blood Pressure 132/66 132/66 132/66 O2 Sat by Pulse 100 100 100 Oximetry 11/11/21 11/11/21 11/11/21 03:48 03:51 04:00 Temperature 99.7 F H 99.7 F H Pulse Rate 102 H 103 H Pulse Rate [ Anterior Throughout] Pulse Rate [ 88 From Monitor] Respiratory 19 18 Rate Respiratory Rate [Anterior Throughout] Blood Pressure 132/66 130/60 O2 Sat by Pulse 100 100 Oximetry 11/11/21 11/11/21 11/11/21 04:11 04:21 04:31 Temperature Pulse Rate 102 H 104 H 110 H Pulse Rate [ Anterior Throughout] Pulse Rate [ From Monitor] Respiratory 16 17 21 Rate Respiratory Rate [Anterior Throughout] Blood Pressure 130/60 130/60 130/60 O2 Sat by Pulse 99 100 100 Oximetry 11/11/21 11/11/21 11/11/21 04:32 04:41 04:51 Temperature Pulse Rate 106 H 105 H 107 H Pulse Rate [ Anterior Throughout] Pulse Rate [ From Monitor] Respiratory 15 21 Rate Respiratory Rate [Anterior Throughout] Blood Pressure 130/60 130/60 130/60 O2 Sat by Pulse 100 100 100 Oximetry 11/11/21 11/11/21 11/11/21 05:00 05:11 05:21 Temperature Pulse Rate 104 H 107 H 106 H Pulse Rate [ Anterior Throughout] Pulse Rate [ From Monitor] Respiratory 20 18 22 Rate Respiratory Rate [Anterior Throughout] Blood Pressure 123/55 123/55 123/55 O2 Sat by Pulse 99 99 100 Oximetry 11/11/21 11/11/21 11/11/21 05:31 05:41 05:51 Temperature Pulse Rate 107 H 108 H 108 H Pulse Rate [ Anterior Throughout] Pulse Rate [ From Monitor] Respiratory 22 19 21 Rate Respiratory Rate [Anterior Throughout] Blood Pressure 123/55 123/55 123/55 O2 Sat by Pulse 100 100 100 Oximetry 11/11/21 11/11/21 11/11/21 06:00 06:11 06:21 Temperature Pulse Rate 107 H 109 H 109 H Pulse Rate [ Anterior Throughout] Pulse Rate [ From Monitor] Respiratory 15 21 21 Rate Respiratory Rate [Anterior Throughout] Blood Pressure 134/66 134/66 134/66 O2 Sat by Pulse 100 100 100 Oximetry 11/11/21 11/11/21 11/11/21 06:31 06:41 06:51 Temperature Pulse Rate 108 H 105 H 107 H Pulse Rate [ Anterior Throughout] Pulse Rate [ From Monitor] Respiratory 15 22 23 Rate Respiratory Rate [Anterior Throughout] Blood Pressure 134/66 134/66 134/66 O2 Sat by Pulse 100 99 99 Oximetry 11/11/21 11/11/21 11/11/21 07:00 07:11 07:21 Temperature Pulse Rate 109 H 110 H 113 H Pulse Rate [ Anterior Throughout] Pulse Rate [ From Monitor] Respiratory 21 22 24 Rate Respiratory Rate [Anterior Throughout] Blood Pressure 143/64 143/64 143/64 O2 Sat by Pulse 100 100 100 Oximetry 11/11/21 11/11/21 11/11/21 07:31 07:41 07:51 Temperature Pulse Rate 114 H 112 H 115 H Pulse Rate [ Anterior Throughout] Pulse Rate [ From Monitor] Respiratory 22 21 21 Rate Respiratory Rate [Anterior Throughout] Blood Pressure 143/64 143/64 143/64 O2 Sat by Pulse 100 100 99 Oximetry 11/11/21 11/11/21 11/11/21 08:00 08:11 08:21 Temperature 100.3 F H Pulse Rate 116 H 116 H 119 H Pulse Rate [ Anterior Throughout] Pulse Rate [ From Monitor] Respiratory 21 22 23 Rate Respiratory Rate [Anterior Throughout] Blood Pressure 143/68 143/68 143/68 O2 Sat by Pulse 99 100 100 Oximetry 11/11/21 11/11/21 11/11/21 08:31 08:40 08:41 Temperature Pulse Rate 119 H 116 H 117 H Pulse Rate [ Anterior Throughout] Pulse Rate [ From Monitor] Respiratory 21 22 Rate Respiratory Rate [Anterior Throughout] Blood Pressure 143/68 143/64 143/68 O2 Sat by Pulse 98 98 99 Oximetry 11/11/21 11/11/21 11/11/21 08:45 08:51 09:00 Temperature Pulse Rate 119 H 116 H Pulse Rate [ 118 H Anterior Throughout] Pulse Rate [ From Monitor] Respiratory 22 21 Rate Respiratory 15 Rate [Anterior Throughout] Blood Pressure 143/68 139/56 O2 Sat by Pulse 100 100 Oximetry 11/11/21 11/11/21 11/11/21 09:11 09:21 09:31 Temperature Pulse Rate 118 H 118 H 116 H Pulse Rate [ Anterior Throughout] Pulse Rate [ From Monitor] Respiratory 24 23 17 Rate Respiratory Rate [Anterior Throughout] Blood Pressure 139/56 139/56 139/56 O2 Sat by Pulse 99 98 99 Oximetry 11/11/21 11/11/21 11/11/21 09:41 09:51 10:00 Temperature Pulse Rate 116 H 118 H 113 H Pulse Rate [ Anterior Throughout] Pulse Rate [ From Monitor] Respiratory 20 14 20 Rate Respiratory Rate [Anterior Throughout] Blood Pressure 139/56 139/56 136/53 O2 Sat by Pulse 99 99 92 Oximetry 11/11/21 11/11/21 11/11/21 10:09 10:11 10:21 Temperature Pulse Rate 115 H 115 H 117 H Pulse Rate [ Anterior Throughout] Pulse Rate [ From Monitor] Respiratory 21 24 Rate Respiratory Rate [Anterior Throughout] Blood Pressure 136/53 136/53 136/53 O2 Sat by Pulse 89 87 Oximetry 11/11/21 11/11/21 11/11/21 10:31 10:41 10:51 Temperature Pulse Rate 113 H 109 H 102 H Pulse Rate [ Anterior Throughout] Pulse Rate [ From Monitor] Respiratory 24 22 16 Rate Respiratory Rate [Anterior Throughout] Blood Pressure 136/53 136/53 136/53 O2 Sat by Pulse 88 89 90 Oximetry 11/11/21 11/11/21 11/11/21 11:00 11:11 11:21 Temperature Pulse Rate 101 H 103 H 101 H Pulse Rate [ Anterior Throughout] Pulse Rate [ From Monitor] Respiratory 21 22 21 Rate Respiratory Rate [Anterior Throughout] Blood Pressure 124/43 124/43 124/43 O2 Sat by Pulse 92 94 96 Oximetry 11/11/21 11/11/21 11/11/21 11:31 11:41 11:51 Temperature Pulse Rate 104 H 106 H 104 H Pulse Rate [ Anterior Throughout] Pulse Rate [ From Monitor] Respiratory 21 18 18 Rate Respiratory Rate [Anterior Throughout] Blood Pressure 124/43 124/43 124/43 O2 Sat by Pulse 96 97 98 Oximetry 11/11/21 11/11/21 11/11/21 12:00 12:11 12:21 Temperature 100.4 F H Pulse Rate 106 H 102 H 106 H Pulse Rate [ Anterior Throughout] Pulse Rate [ From Monitor] Respiratory 15 20 20 Rate Respiratory Rate [Anterior Throughout] Blood Pressure 119/50 119/50 119/50 O2 Sat by Pulse 98 98 95 Oximetry 11/11/21 11/11/21 11/11/21 12:31 12:40 12:41 Temperature Pulse Rate 106 H 100 H Pulse Rate [ Anterior Throughout] Pulse Rate [ From Monitor] Respiratory 18 17 Rate Respiratory Rate [Anterior Throughout] Blood Pressure 119/50 119/50 O2 Sat by Pulse 96 100 97 Oximetry 11/11/21 12:51 Temperature Pulse Rate 106 H Pulse Rate [ Anterior Throughout] Pulse Rate [ From Monitor] Respiratory 20 Rate Respiratory Rate [Anterior Throughout] Blood Pressure 119/50 O2 Sat by Pulse 97 Oximetry Constitutional: appears uncomfortable, other (ETT to MVS, frail elderly woman with mildly increased respiratory effort at rest) Eyes: non-icteric ENT: oropharynx moist, oropharyngeal exudate pre (clear frothy), other (ETT 23 cm ELIZABETH) Neck: supple, no lymphadenopathy, no JVD Effort: normal, mildly labored Ascultation: Bilateral: diminished breath sounds (L>R), rhonchi Percussion: Bilateral: not dull Cardiovascular: regular rate and rhythm, other (S1,S2) Gastrointestinal: normoactive bowel sounds, soft, non-tender, non-distended Integumentary: normal Extremities: no edema, pink and warm, pulses normal, edema (trace) Neurologic: non-focal exam (grossly), pupils equal and round, unable to assess, other (grimaces to pain) Psychiatric: other (unable to assess re: AMS) CBC and BMP: 11/11/21 04:28 11/11/21 04:28 ABG, PT/INR, D-dimer: ABG ABG pH 7.430 pH Units (7.350-7.450) 11/10/21 15:35 ABG pCO2 39.3 mm Hg 11/10/21 15:35 ABG pO2 126.6 mm Hg (80.0-90.0) H 11/10/21 15:35 ABG O2 Saturation 98.5 % (95.0-99.0) 11/10/21 15:35 PT/INR, D-dimer PT 18.6 Sec. (12.2-14.9) H 11/03/21 22:32 INR 1.40 (0.87-1.13) H 11/03/21 22:32 D-Dimer 2655.00 ng/mlDDU (0-234) H 11/11/21 04:28 Abnormal lab findings: Abnormal Labs 11/03/21 11/03/21 11/03/21 22:32 22:32 22:32 WBC 29.3 H RBC 2.93 L Hgb 6.1 L Hct 21.9 L MCV 75 L MCH 21 L MCHC 28 L RDW 19.7 H Plt Count Seg Neuts % (Manual) 97.0 H Lymphocytes % (Manual) 3.0 L Seg Neutrophils # Man 28.4 H Lymphocytes # (Manual) 0.9 L Monocytes # (Manual) PT 18.6 H INR 1.40 H D-Dimer ABG pH ABG pO2 ABG HCO3 ABG O2 Saturation ABG Base Excess ABG Hemoglobin Oxyhemoglobin Sodium Potassium Chloride Carbon Dioxide 20 L BUN 33 H Glucose 119 H POC Glucose Lactic Acid Calcium 8.3 L AST ALT Alkaline Phosphatase Lactate Dehydrogenase Troponin T 0.035 H C-Reactive Protein NT-Pro-B Natriuret Pep Total Protein Albumin LDL Cholesterol Direct 34 L Vitamin B12 Crossmatch 11/03/21 11/03/21 11/03/21 22:32 22:32 23:57 WBC RBC Hgb Hct MCV MCH MCHC RDW Plt Count Seg Neuts % (Manual) Lymphocytes % (Manual) Seg Neutrophils # Man Lymphocytes # (Manual) Monocytes # (Manual) PT INR D-Dimer ABG pH ABG pO2 ABG HCO3 ABG O2 Saturation ABG Base Excess ABG Hemoglobin Oxyhemoglobin Sodium Potassium Chloride Carbon Dioxide BUN Glucose POC Glucose Lactic Acid 3.70 H* Calcium AST ALT Alkaline Phosphatase 139 H Lactate Dehydrogenase Troponin T C-Reactive Protein NT-Pro-B Natriuret Pep 7895 H Total Protein Albumin 3.5 L LDL Cholesterol Direct Vitamin B12 Crossmatch See Detail 11/04/21 11/04/21 11/05/21 00:59 13:58 00:51 WBC 27.9 H RBC 3.28 L Hgb 7.3 L Hct 25.5 L MCV 78 L MCH 22 L MCHC 29 L RDW 19.1 H Plt Count Seg Neuts % (Manual) 96.0 H Lymphocytes % (Manual) 2.0 L Seg Neutrophils # Man 26.8 H Lymphocytes # (Manual) 0.6 L Monocytes # (Manual) PT INR D-Dimer ABG pH ABG pO2 ABG HCO3 ABG O2 Saturation ABG Base Excess ABG Hemoglobin Oxyhemoglobin Sodium Potassium Chloride Carbon Dioxide BUN Glucose POC Glucose Lactic Acid Calcium AST ALT Alkaline Phosphatase Lactate Dehydrogenase Troponin T 0.051 H D 0.032 H D C-Reactive Protein NT-Pro-B Natriuret Pep Total Protein Albumin LDL Cholesterol Direct Vitamin B12 Crossmatch 11/05/21 11/05/21 11/05/21 06:11 06:11 06:11 WBC 31.8 H RBC 3.57 L Hgb 8.0 L Hct 27.7 L MCV 78 L MCH 22 L MCHC 29 L RDW 19.2 H Plt Count Seg Neuts % (Manual) 91.0 H Lymphocytes % (Manual) 4.5 L Seg Neutrophils # Man 28.9 H Lymphocytes # (Manual) Monocytes # (Manual) 1.1 H PT INR D-Dimer 1494.53 H ABG pH ABG pO2 ABG HCO3 ABG O2 Saturation ABG Base Excess ABG Hemoglobin Oxyhemoglobin Sodium Potassium Chloride Carbon Dioxide 19 L BUN 42 H Glucose 115 H POC Glucose Lactic Acid Calcium AST 43 H ALT Alkaline Phosphatase Lactate Dehydrogenase 187 H Troponin T C-Reactive Protein 22.20 H NT-Pro-B Natriuret Pep Total Protein 6.0 L Albumin 3.2 L LDL Cholesterol Direct Vitamin B12 Crossmatch 11/05/21 11/05/21 11/06/21 06:11 12:15 00:30 WBC RBC Hgb Hct MCV MCH MCHC RDW Plt Count Seg Neuts % (Manual) Lymphocytes % (Manual) Seg Neutrophils # Man Lymphocytes # (Manual) Monocytes # (Manual) PT INR D-Dimer ABG pH ABG pO2 ABG HCO3 ABG O2 Saturation ABG Base Excess ABG Hemoglobin Oxyhemoglobin Sodium Potassium Chloride Carbon Dioxide BUN Glucose POC Glucose 113 H 69 L Lactic Acid Calcium AST ALT Alkaline Phosphatase Lactate Dehydrogenase Troponin T 0.033 H C-Reactive Protein NT-Pro-B Natriuret Pep Total Protein Albumin LDL Cholesterol Direct Vitamin B12 Crossmatch 11/06/21 11/06/21 11/06/21 05:50 15:50 15:50 WBC 25.5 H RBC 3.62 L Hgb 8.0 L Hct 27.5 L MCV 76 L MCH 22 L MCHC 29 L RDW 19.6 H Plt Count Seg Neuts % (Manual) 92.0 H Lymphocytes % (Manual) 5.0 L Seg Neutrophils # Man 23.5 H Lymphocytes # (Manual) Monocytes # (Manual) PT INR D-Dimer ABG pH 7.305 L ABG pO2 ABG HCO3 15.8 L ABG O2 Saturation ABG Base Excess -9.6 L ABG Hemoglobin 8.6 L Oxyhemoglobin 94.6 L Sodium Potassium Chloride 113.9 H Carbon Dioxide 17 L BUN 56 H Glucose 114 H POC Glucose Lactic Acid Calcium 7.9 L AST 1410 H ALT 934 H Alkaline Phosphatase 142 H Lactate Dehydrogenase Troponin T C-Reactive Protein NT-Pro-B Natriuret Pep Total Protein 5.0 L Albumin 2.6 L LDL Cholesterol Direct Vitamin B12 Crossmatch 11/07/21 11/07/21 11/07/21 03:30 04:50 08:07 WBC RBC Hgb Hct MCV MCH MCHC RDW Plt Count Seg Neuts % (Manual) Lymphocytes % (Manual) Seg Neutrophils # Man Lymphocytes # (Manual) Monocytes # (Manual) PT INR D-Dimer ABG pH ABG pO2 296.9 H ABG HCO3 18.1 L ABG O2 Saturation 99.5 H ABG Base Excess -5.9 L ABG Hemoglobin 7.6 L Oxyhemoglobin Sodium Potassium Chloride Carbon Dioxide BUN Glucose POC Glucose 106 H 108 H Lactic Acid Calcium AST ALT Alkaline Phosphatase Lactate Dehydrogenase Troponin T C-Reactive Protein NT-Pro-B Natriuret Pep Total Protein Albumin LDL Cholesterol Direct Vitamin B12 Crossmatch 11/08/21 11/08/21 11/08/21 03:10 18:05 23:43 WBC RBC Hgb Hct MCV MCH MCHC RDW Plt Count Seg Neuts % (Manual) Lymphocytes % (Manual) Seg Neutrophils # Man Lymphocytes # (Manual) Monocytes # (Manual) PT INR D-Dimer ABG pH ABG pO2 127.4 H ABG HCO3 ABG O2 Saturation ABG Base Excess -3.4 L ABG Hemoglobin 7.4 L Oxyhemoglobin Sodium Potassium Chloride Carbon Dioxide BUN Glucose POC Glucose 113 H 141 H Lactic Acid Calcium AST ALT Alkaline Phosphatase Lactate Dehydrogenase Troponin T C-Reactive Protein NT-Pro-B Natriuret Pep Total Protein Albumin LDL Cholesterol Direct Vitamin B12 Crossmatch 11/08/21 11/08/21 11/09/21 Unknown Unknown 02:00 WBC 14.5 H RBC 3.35 L Hgb 7.5 L 8.1 L Hct 25.4 L 27.6 L MCV 76 L 76 L MCH 23 L 22 L MCHC RDW 19.9 H 19.9 H Plt Count Seg Neuts % (Manual) Lymphocytes % (Manual) Seg Neutrophils # Man Lymphocytes # (Manual) Monocytes # (Manual) PT INR D-Dimer ABG pH ABG pO2 ABG HCO3 ABG O2 Saturation ABG Base Excess ABG Hemoglobin Oxyhemoglobin Sodium 154 H D Potassium 3.3 L Chloride 120.7 H Carbon Dioxide 20 L BUN 38 H Glucose POC Glucose Lactic Acid Calcium 8.3 L AST ALT Alkaline Phosphatase Lactate Dehydrogenase Troponin T C-Reactive Protein NT-Pro-B Natriuret Pep Total Protein Albumin LDL Cholesterol Direct Vitamin B12 Crossmatch 11/09/21 11/09/21 11/09/21 02:00 02:31 05:12 WBC RBC Hgb Hct MCV MCH MCHC RDW Plt Count Seg Neuts % (Manual) Lymphocytes % (Manual) Seg Neutrophils # Man Lymphocytes # (Manual) Monocytes # (Manual) PT INR D-Dimer ABG pH 7.479 H ABG pO2 121.3 H ABG HCO3 ABG O2 Saturation ABG Base Excess ABG Hemoglobin 7.3 L Oxyhemoglobin Sodium Potassium Chloride 112.5 H Carbon Dioxide BUN 33 H Glucose 161 H POC Glucose 135 H Lactic Acid Calcium AST 251 H ALT 481 H Alkaline Phosphatase Lactate Dehydrogenase Troponin T C-Reactive Protein NT-Pro-B Natriuret Pep Total Protein 5.0 L Albumin 2.8 L LDL Cholesterol Direct Vitamin B12 Crossmatch 11/09/21 11/09/21 11/09/21 11:33 16:32 23:28 WBC RBC Hgb Hct MCV MCH MCHC RDW Plt Count Seg Neuts % (Manual) Lymphocytes % (Manual) Seg Neutrophils # Man Lymphocytes # (Manual) Monocytes # (Manual) PT INR D-Dimer ABG pH ABG pO2 ABG HCO3 ABG O2 Saturation ABG Base Excess ABG Hemoglobin Oxyhemoglobin Sodium Potassium Chloride Carbon Dioxide BUN Glucose POC Glucose 132 H 133 H 143 H Lactic Acid Calcium AST ALT Alkaline Phosphatase Lactate Dehydrogenase Troponin T C-Reactive Protein NT-Pro-B Natriuret Pep Total Protein Albumin LDL Cholesterol Direct Vitamin B12 Crossmatch 11/10/21 11/10/21 11/10/21 04:00 04:00 05:35 WBC 16.0 H RBC 3.61 L Hgb 8.0 L Hct 27.1 L MCV 75 L MCH 22 L MCHC RDW 20.4 H Plt Count Seg Neuts % (Manual) Lymphocytes % (Manual) Seg Neutrophils # Man Lymphocytes # (Manual) Monocytes # (Manual) PT INR D-Dimer ABG pH ABG pO2 ABG HCO3 ABG O2 Saturation ABG Base Excess ABG Hemoglobin Oxyhemoglobin Sodium 149 H Potassium Chloride 114.1 H Carbon Dioxide BUN 31 H Glucose 148 H POC Glucose 132 H Lactic Acid Calcium 8.2 L AST ALT Alkaline Phosphatase Lactate Dehydrogenase Troponin T C-Reactive Protein NT-Pro-B Natriuret Pep Total Protein Albumin LDL Cholesterol Direct Vitamin B12 Crossmatch 11/10/21 11/10/21 11/10/21 11:31 14:08 15:35 WBC RBC Hgb Hct MCV MCH MCHC RDW Plt Count Seg Neuts % (Manual) Lymphocytes % (Manual) Seg Neutrophils # Man Lymphocytes # (Manual) Monocytes # (Manual) PT INR D-Dimer ABG pH ABG pO2 126.6 H ABG HCO3 ABG O2 Saturation ABG Base Excess ABG Hemoglobin 7.4 L Oxyhemoglobin Sodium Potassium Chloride Carbon Dioxide BUN Glucose POC Glucose 147 H Lactic Acid Calcium AST ALT Alkaline Phosphatase Lactate Dehydrogenase Troponin T C-Reactive Protein NT-Pro-B Natriuret Pep Total Protein Albumin LDL Cholesterol Direct Vitamin B12 1823 H Crossmatch 11/10/21 11/11/21 11/11/21 17:53 00:55 04:28 WBC RBC Hgb Hct MCV MCH MCHC RDW Plt Count Seg Neuts % (Manual) Lymphocytes % (Manual) Seg Neutrophils # Man Lymphocytes # (Manual) Monocytes # (Manual) PT INR D-Dimer ABG pH ABG pO2 ABG HCO3 ABG O2 Saturation ABG Base Excess ABG Hemoglobin Oxyhemoglobin Sodium 149 H Potassium Chloride 112.2 H Carbon Dioxide BUN 34 H Glucose 148 H POC Glucose 140 H 145 H Lactic Acid Calcium 7.9 L AST 53 H ALT 203 H Alkaline Phosphatase Lactate Dehydrogenase Troponin T C-Reactive Protein NT-Pro-B Natriuret Pep Total Protein 4.9 L Albumin 2.6 L LDL Cholesterol Direct Vitamin B12 Crossmatch 11/11/21 11/11/21 11/11/21 04:28 04:28 05:28 WBC 20.9 H RBC 3.47 L Hgb 7.5 L Hct 26.0 L MCV 75 L MCH 22 L MCHC 29 L RDW 21.6 H Plt Count 132 L Seg Neuts % (Manual) Lymphocytes % (Manual) Seg Neutrophils # Man Lymphocytes # (Manual) Monocytes # (Manual) PT INR D-Dimer 2655.00 H ABG pH ABG pO2 ABG HCO3 ABG O2 Saturation ABG Base Excess ABG Hemoglobin Oxyhemoglobin Sodium Potassium Chloride Carbon Dioxide BUN Glucose POC Glucose 154 H Lactic Acid Calcium AST ALT Alkaline Phosphatase Lactate Dehydrogenase Troponin T C-Reactive Protein NT-Pro-B Natriuret Pep Total Protein Albumin LDL Cholesterol Direct Vitamin B12 Crossmatch 11/11/21 12:38 WBC RBC Hgb Hct MCV MCH MCHC RDW Plt Count Seg Neuts % (Manual) Lymphocytes % (Manual) Seg Neutrophils # Man Lymphocytes # (Manual) Monocytes # (Manual) PT INR D-Dimer ABG pH ABG pO2 ABG HCO3 ABG O2 Saturation ABG Base Excess ABG Hemoglobin Oxyhemoglobin Sodium Potassium Chloride Carbon Dioxide BUN Glucose POC Glucose 137 H Lactic Acid Calcium AST ALT Alkaline Phosphatase Lactate Dehydrogenase Troponin T C-Reactive Protein NT-Pro-B Natriuret Pep Total Protein Albumin LDL Cholesterol Direct Vitamin B12 Crossmatch Chest x-ray: image reviewed (left lung large volume atelectasis) Allied health notes reviewed: nursing
--- NOTE | 2021-11-11 13:25 | Progress Note ---
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 She was found to be in respiratory distress, initially treated with NRB. Pt was also noted to be septic with radiographic evidence of bilateral PNA Acute Respiratory Failure Septic Shock GBS Bacteremia Bilateral Pneumonia Bilateral Pleural Effusions Acute HFrEF Cardiomyopathy (EF reduced to 30-35% on echo this admission) NSVT Tn Elevation (?Type 2 OR in the setting of hypoxia & shock) Elevated LFTs (?shock liver) Anemia Hypokalemia CAD s/p PCI (2004) CHB s/p PPM ([facility]) Hypothyroidism H/o HTN H/o DM Arthritis Echo reviewed - EF 30-35%, mild diastolic dysfunction, RV mildly dilated, moderate MR, moderate TR, moderate pulmonary HTN w/RVSP 49mmHg, no pericardial effusion, large left pleural effusion. Plan: Suspect volume overload in the setting of IV fluid resuscitation. Continue gentle IV diuresis with strict I/Os and close monitoring of renal indices & electrolytes. Patient is tachycardic will increase to metoprolol 25mg BID. Not on ASA d/t allergy. Statin held in the setting of elevated LFTs. Pt seen in conjunction with Dr. Griggs, who agrees with the assessment and plan of care. - Patient Problems (1) Acute anemia Current Visit: Yes Status: Acute (2) Acute respiratory failure with hypoxia Current Visit: Yes Status: Acute (3) Bilateral pneumonia Current Visit: Yes Status: Acute Subjective Date of service: 11/11/21 Principal diagnosis: Septic shock; AHRF; Anemia; Pneumonia; L. pleural effusion; HFrEF; Pulm HTN Interval history: Patient remained intubated and sedated no acute distress Sinus tach 110s-120s on monitor Objective Vital Signs Temp Pulse Pulse Pulse Resp Resp BP 11/11/21 12:51 106 H 20 119/50 11/11/21 12:41 100 H 17 119/50 11/11/21 12:40 11/11/21 12:31 106 H 18 119/50 11/11/21 12:21 106 H 20 119/50 11/11/21 12:11 102 H 20 119/50 11/11/21 12:00 100.4 F H 106 H 15 119/50 11/11/21 11:51 104 H 18 124/43 11/11/21 11:41 106 H 18 124/43 11/11/21 11:31 104 H 21 124/43 11/11/21 11:21 101 H 21 124/43 11/11/21 11:11 103 H 22 124/43 11/11/21 11:00 101 H 21 124/43 11/11/21 10:51 102 H 16 136/53 11/11/21 10:41 109 H 22 136/53 11/11/21 10:31 113 H 24 136/53 11/11/21 10:21 117 H 24 136/53 11/11/21 10:11 115 H 21 136/53 11/11/21 10:09 115 H 136/53 11/11/21 10:00 113 H 20 136/53 11/11/21 09:51 118 H 14 139/56 11/11/21 09:41 116 H 20 139/56 11/11/21 09:31 116 H 17 139/56 11/11/21 09:21 118 H 23 139/56 11/11/21 09:11 118 H 24 139/56 11/11/21 09:00 116 H 21 139/56 11/11/21 08:51 119 H 22 143/68 11/11/21 08:45 118 H 15 11/11/21 08:41 117 H 22 143/68 11/11/21 08:40 116 H 143/64 11/11/21 08:31 119 H 21 143/68 11/11/21 08:21 119 H 23 143/68 11/11/21 08:11 116 H 22 143/68 11/11/21 08:00 100.3 F H 116 H 21 143/68 11/11/21 07:51 115 H 21 143/64 11/11/21 07:41 112 H 21 143/64 11/11/21 07:31 114 H 22 143/64 11/11/21 07:21 113 H 24 143/64 11/11/21 07:11 110 H 22 143/64 11/11/21 07:00 109 H 21 143/64 11/11/21 06:51 107 H 23 134/66 11/11/21 06:41 105 H 22 134/66 11/11/21 06:31 108 H 15 134/66 01/25/22 06:21 109 H 21 134/66 11/11/21 06:11 109 H 21 134/66 11/11/21 06:00 107 H 15 134/66 11/11/21 05:51 108 H 21 123/55 11/11/21 05:41 108 H 19 123/55 11/11/21 05:31 107 H 22 123/55 11/11/21 05:21 106 H 22 123/55 11/11/21 05:11 107 H 18 123/55 11/11/21 05:00 104 H 20 123/55 11/11/21 04:51 107 H 21 130/60 11/11/21 04:41 105 H 15 130/60 11/11/21 04:32 106 H 130/60 11/11/21 04:31 110 H 21 130/60 11/11/21 04:21 104 H 17 130/60 11/11/21 04:11 102 H 16 130/60 11/11/21 04:00 99.7 F H 103 H 88 18 130/60 11/11/21 03:51 102 H 19 132/66 11/11/21 03:48 99.7 F H 11/11/21 03:41 104 H 20 132/66 11/11/21 03:31 101 H 19 132/66 11/11/21 03:21 101 H 20 132/66 11/11/21 03:11 103 H 22 132/66 11/11/21 03:00 100 H 19 132/66 11/11/21 02:51 102 H 19 144/62 11/11/21 02:41 99 H 22 144/62 11/11/21 02:31 98 H 16 144/62 11/11/21 02:21 101 H 16 144/62 11/11/21 02:11 94 H 17 144/62 11/11/21 02:00 99 H 19 144/62 11/11/21 01:51 98 H 18 133/63 11/11/21 01:41 95 H 18 133/63 11/11/21 01:31 96 H 20 133/63 11/11/21 01:21 97 H 18 133/63 11/11/21 01:11 100 H 16 133/63 11/11/21 01:00 95 H 18 133/63 11/11/21 00:51 89 15 120/59 11/11/21 00:41 95 H 15 120/59 11/11/21 00:31 85 16 120/59 11/11/21 00:21 90 16 120/59 11/11/21 00:11 94 H 21 120/59 11/11/21 00:00 100.6 F H 91 H 94 H 21 120/59 11/10/21 23:51 89 16 110/47 11/10/21 23:41 86 17 110/47 11/10/21 23:31 93 H 19 110/47 11/10/21 23:21 86 17 110/47 11/10/21 23:11 90 16 110/47 11/10/21 23:00 87 15 110/47 11/10/21 22:51 91 H 19 148/59 11/10/21 22:41 93 H 20 148/59 11/10/21 22:31 104 H 20 148/59 11/10/21 22:21 97 H 18 148/59 11/10/21 22:17 107 H 14 11/10/21 22:11 94 H 20 148/59 11/10/21 22:07 93 H 148/59 11/10/21 22:00 107 H 15 148/59 11/10/21 21:51 113 H 38 H 172/67 11/10/21 21:41 111 H 18 174/84 11/10/21 21:31 110 H 19 174/84 11/10/21 21:21 109 H 21 174/84 11/10/21 21:11 111 H 16 174/84 11/10/21 21:00 111 H 16 174/84 11/10/21 20:51 114 H 16 158/84 11/10/21 20:41 114 H 18 158/84 11/10/21 20:31 114 H 17 158/84 11/10/21 20:21 114 H 18 158/84 11/10/21 20:11 114 H 17 158/84 11/10/21 20:00 100.8 F H 106 H 90 16 158/84 11/10/21 19:51 110 H 16 141/67 11/10/21 19:47 113 H 17 141/67 11/10/21 19:41 113 H 25 H 141/67 11/10/21 19:31 102 H 18 141/67 11/10/21 19:29 104 H 141/67 11/10/21 19:21 101 H 18 141/67 11/10/21 19:11 98 H 21 141/67 11/10/21 19:00 98 H 21 141/67 11/10/21 18:51 103 H 19 150/71 11/10/21 18:41 98 H 36 H 150/71 11/10/21 18:31 103 H 14 150/71 11/10/21 18:21 102 H 23 150/71 11/10/21 18:11 101 H 37 H 150/71 11/10/21 18:00 99 H 23 150/71 11/10/21 17:51 103 H 17 146/70 11/10/21 17:41 101 H 19 146/70 11/10/21 17:31 102 H 19 146/70 11/10/21 17:28 96 H 11/10/21 17:21 97 H 22 146/70 11/10/21 17:11 97 H 19 146/70 11/10/21 17:01 97 H 24 146/70 11/10/21 16:51 93 H 22 113/53 11/10/21 16:41 99 H 20 113/53 11/10/21 16:31 96 H 21 113/53 11/10/21 16:21 104 H 21 113/53 11/10/21 16:11 96 H 17 113/53 11/10/21 16:00 90 16 113/53 11/10/21 15:51 94 H 15 123/58 11/10/21 15:41 91 H 17 123/58 11/10/21 15:31 92 H 17 123/58 11/10/21 15:28 94 H 123/58 11/10/21 15:21 96 H 17 123/58 11/10/21 15:11 93 H 25 H 123/58 11/10/21 15:00 123/58 11/10/21 14:51 89 18 147/79 11/10/21 14:41 147/79 11/10/21 14:31 93 H 25 H 147/79 11/10/21 14:21 100 H 22 147/79 11/10/21 14:11 103 H 24 147/79 11/10/21 14:00 104 H 25 H 147/79 11/10/21 13:51 97 H 23 123/51 11/10/21 13:41 97 H 25 H 123/51 11/10/21 13:31 92 H 23 123/51 Pulse Ox 11/11/21 12:51 97 11/11/21 12:41 97 11/11/21 12:40 100 11/11/21 12:31 96 11/11/21 12:21 95 11/11/21 12:11 98 11/11/21 12:00 98 11/11/21 11:51 98 11/11/21 11:41 97 11/11/21 11:31 96 11/11/21 11:21 96 11/11/21 11:11 94 11/11/21 11:00 92 11/11/21 10:51 90 11/11/21 10:41 89 11/11/21 10:31 88 11/11/21 10:21 87 11/11/21 10:11 89 11/11/21 10:09 11/11/21 10:00 92 11/11/21 09:51 99 11/11/21 09:41 99 11/11/21 09:31 99 11/11/21 09:21 98 11/11/21 09:11 99 11/11/21 09:00 100 11/11/21 08:51 100 11/11/21 08:45 11/11/21 08:41 99 11/11/21 08:40 98 11/11/21 08:31 98 11/11/21 08:21 100 11/11/21 08:11 100 11/11/21 08:00 99 11/11/21 07:51 99 11/11/21 07:41 100 11/11/21 07:31 100 11/11/21 07:21 100 11/11/21 07:11 100 11/11/21 07:00 100 11/11/21 06:51 99 11/11/21 06:41 99 11/11/21 06:31 100 11/11/21 06:21 100 11/11/21 06:11 100 11/11/21 06:00 100 11/11/21 05:51 100 11/11/21 05:41 100 11/11/21 05:31 100 11/11/21 05:21 100 11/11/21 05:11 99 11/11/21 05:00 99 11/11/21 04:51 100 11/11/21 04:41 100 11/11/21 04:32 100 11/11/21 04:31 100 11/11/21 04:21 100 11/11/21 04:11 99 11/11/21 04:00 100 11/11/21 03:51 100 11/11/21 03:48 11/11/21 03:41 100 11/11/21 03:31 100 11/11/21 03:21 100 11/11/21 03:11 100 11/11/21 03:00 100 11/11/21 02:51 100 11/11/21 02:41 100 11/11/21 02:31 100 11/11/21 02:21 99 11/11/21 02:11 100 11/11/21 02:00 100 11/11/21 01:51 100 11/11/21 01:41 100 11/11/21 01:31 100 11/11/21 01:21 100 11/11/21 01:11 100 11/11/21 01:00 100 11/11/21 00:51 100 11/11/21 00:41 100 11/11/21 00:31 99 11/11/21 00:21 99 11/11/21 00:11 99 11/11/21 00:00 98 11/10/21 23:51 98 11/10/21 23:41 96 11/10/21 23:31 96 11/10/21 23:21 94 11/10/21 23:11 95 11/10/21 23:00 93 11/10/21 22:51 94 11/10/21 22:41 93 11/10/21 22:31 100 11/10/21 22:21 100 11/10/21 22:17 11/10/21 22:11 98 11/10/21 22:07 98 11/10/21 22:00 85 11/10/21 21:51 99 11/10/21 21:41 98 11/10/21 21:31 98 11/10/21 21:21 98 11/10/21 21:11 98 11/10/21 21:00 98 11/10/21 20:51 99 11/10/21 20:41 99 11/10/21 20:31 99 11/10/21 20:21 99 11/10/21 20:11 99 11/10/21 20:00 99 11/10/21 19:51 99 11/10/21 19:47 98 11/10/21 19:41 100 11/10/21 19:31 99 11/10/21 19:29 98 11/10/21 19:21 99 11/10/21 19:11 98 11/10/21 19:00 98 11/10/21 18:51 100 11/10/21 18:41 99 11/10/21 18:31 100 11/10/21 18:21 99 11/10/21 18:11 99 11/10/21 18:00 98 11/10/21 17:51 99 11/10/21 17:41 98 11/10/21 17:31 98 11/10/21 17:28 100 11/10/21 17:21 97 11/10/21 17:11 97 11/10/21 17:01 97 11/10/21 16:51 95 11/10/21 16:41 96 11/10/21 16:31 94 11/10/21 16:21 97 11/10/21 16:11 98 11/10/21 16:00 100 11/10/21 15:51 100 11/10/21 15:41 100 11/10/21 15:31 100 11/10/21 15:28 100 11/10/21 15:21 100 11/10/21 15:11 99 11/10/21 15:00 100 11/10/21 14:51 100 11/10/21 14:41 99 11/10/21 14:31 99 11/10/21 14:21 99 11/10/21 14:11 99 11/10/21 14:00 99 11/10/21 13:51 99 11/10/21 13:41 99 11/10/21 13:31 99 - Physical Examination General: Other (intubated) HEENT: Positive: Normocephaly Neck: Positive: neck supple, trachea midline Cardiac: Positive: Regular Rhythm, Tachycardia Lungs: Positive: Ventilated Respirations Neuro: Positive: Other (intubated) Abdomen: Positive: Soft Skin: Negative: Wound Musculoskeletal: No Fluid Collection Extremities: Present: lower extr. pulses, edema - Labs and Meds Cardiac Enzymes 11/11/21 Range/Units 04:28 AST 53 H (5-40) units/L CBC 11/11/21 Range/Units 04:28 WBC 20.9 H (4.5-11.0) K/mm3 RBC 3.47 L (3.65-5.03) M/mm3 Hgb 7.5 L (10.1-14.3) gm/dl Hct 26.0 L (30.3-42.9) % Plt Count 132 L (140-440) K/mm3 Comprehensive Metabolic Panel 11/11/21 Range/Units 04:28 Sodium 149 H (137-145) mmol/L Potassium 3.8 (3.6-5.0) mmol/L Chloride 112.2 H (98-107) mmol/L Carbon Dioxide 26 (22-30) mmol/L BUN 34 H (7-17) mg/dL Creatinine 0.6 (0.6-1.2) mg/dL Glucose 148 H (65-100) mg/dL Calcium 7.9 L (8.4-10.2) mg/dL Direct Bilirubin < 0.2 (0-0.2) mg/dL Indirect Bilirubin 0.1 mg/dL AST 53 H (5-40) units/L ALT 203 H (7-56) units/L Alkaline Phosphatase 124 (35-129) units/L Total Protein 4.9 L (6.3-8.2) g/dL Albumin 2.6 L (3.9-5) g/dL - Imaging and Cardiology EKG: report reviewed, image reviewed Stress echo: report reviewed Echo: report reviewed Cardiac cath: report reviewed - Telemetry EKG Rhythm: Sinus Tachycardia - EKG Sinus rhythms and dysrhythmias: sinus rhythm, sinus tachycardia - Allied health notes Allied health notes reviewed: nursing
--- NOTE | 2021-11-11 13:30 | Ultrasound Report ---
US chest INDICATION / CLINICAL INFORMATION: right pleural effusion. COMPARISON: Chest radiograph performed today. FINDINGS: Limited grayscale imaging to evaluate for pleural effusion. Right pleural effusion volume measures approximately 31 cc. Left pleural effusion measures approximat denny 48 cc. IMPRESSION: Small pleural effusions, left slightly larger than right. Scribed by: Belle Richardson RDMS, RVT Scribed: 11/11/2021 9:39 AM I have reviewed the images, agree with this report, and edited this report as needed. Signer Name: Osiel Kirk MD Signed: 11/11/2021 1:26 PM Workstation Name: [id number]
[2021-11-11] MEDS: FREE WATER PO SCH (14:00)
[2021-11-11] MEDS ORDERED: LIDOCAINE (1%) 10 MG/1 ML VIAL 20 ML MDV INFILTRATI NR (14:47)
[2021-11-11] MEDS ORDERED: fentaNYL 100 MCG/2 ML INJ ONE ×2 (14:53→16:04)
[2021-11-11] MEDS: NORepinephrine/NS 8 MG-250 ML 8 MG/250 ML INFUS..BTL IV SCH (15:00)
[2021-11-11] MEDS ORDERED: propofoL 200 MG/20 ML VIAL IV ONE ×2 (15:05→17:00)
[2021-11-11] MEDS ORDERED: SODIUM CHLORIDE 0.9% 500 ML 500 ML ONE (15:15)
--- NOTE | 2021-11-11 15:57 | XRay Report ---
CHEST 1 VIEW 11/11/2021 2:49 PM INDICATION / CLINICAL INFORMATION: ETT exchange; post bronchoscopy. COMPARISON: Exam done earlier today FINDINGS: SUPPORT DEVICES: The tip of ET tube appears to be about 3 cm above the pascale. Other lines appear sta ble. HEART / MEDIASTINUM: Stable. LUNGS / PLEURA: Interval development of moderate right pneumothorax. Improved aeration in the left denzel ng. ADDITIONAL FINDINGS: No significant additional findings. IMPRESSION: 1. Interval development of moderate right pneumothorax. Message was left with Irma working with Dr. Burnett at 2:53 PM on 11/11/2021. Signer Name: Ramana Grissom MD Signed: 11/11/2021 3:53 PM Workstation Name: [id number]
[2021-11-11] MEDS ORDERED: LACTATED RINGERS 1,000 ML IV ONE ×2 (16:00→17:00)
--- NOTE | 2021-11-11 16:09 | Progress Note ---
Assessment and Plan Cultures: SARS CoV2 PCR: negative 11/03/2021 blood culture: Group B streptococcus 11/04/2021 blood culture: no growth A/P: 81-year-old female with diabetes mellitus, hypertension, arthritis was admitted with shortness of breath. She was also having fever: #Severe sepsis with shock, secondary to bilateral pneumonia: likely from Group B Strep. COVID-19 negative #Group B Strep bacteremia: Likely secondary to above, no other source identified, other possibility is mild lower extremity cellulitis. Does have indwelling cardiac device, per patient it is a pacemaker. TTE showed no valvular or lead vegetations #Acute hypoxic respiratory failure: Secondary to above. Intubated, on the vent. Recs: -Given fevers and worsening white count esclaated to cefepime -CXR with R PTX today -Completed synergistic clindamycin -overall guarded prognosis Mahogany Montes MD [facility] O: [phone] F: [phone] Subjective Date of service: 11/11/21 Principal diagnosis: Septic shock; AHRF; Anemia; Pneumonia; L. pleural effusion; HFrEF; Pulm HTN Interval history: Febrile today. Bronch done. White count increasing. Objective - Exam Narrative Exam: Physical exam deferred to reduce risk of transmission of COVID-19. Please refer to primary team's note. - Constitutional Vitals: Vital Signs Temp Pulse Resp BP Pulse Ox 100.4 F H 106 H 20 119/50 100 11/11/21 12:00 11/11/21 12:51 11/11/21 12:51 11/11/21 12:51 11/11/21 15:10 Temperature -Last 24 Hours Temperature 100.4 F Temperature 100.3 F Temperature 99.7 F Temperature 99.7 F Temperature 100.6 F Temperature 100.6 F Temperature 100.8 F - Labs CBC & Chem 7: 11/11/21 04:28 11/11/21 04:28 Labs: Abnormal lab results 11/10/21 11/11/21 11/11/21 Range/Units 17:53 00:55 04:28 WBC (4.5-11.0) K/mm3 RBC (3.65-5.03) M/mm3 Hgb (10.1-14.3) gm/dl Hct (30.3-42.9) % MCV (79-97) fl MCH (28-32) pg MCHC (30-34) % RDW (13.2-15.2) % Plt Count (140-440) K/mm3 D-Dimer (0-234) ng/mlDDU Sodium 149 H (137-145) mmol/L Chloride 112.2 H (98-107) mmol/L BUN 34 H (7-17) mg/dL Glucose 148 H (65-100) mg/dL POC Glucose 140 H 145 H (70-105) mg/dL Calcium 7.9 L (8.4-10.2) mg/dL AST 53 H (5-40) units/L ALT 203 H (7-56) units/L Total Protein 4.9 L (6.3-8.2) g/dL Albumin 2.6 L (3.9-5) g/dL 11/11/21 11/11/21 11/11/21 Range/Units 04:28 04:28 05:28 WBC 20.9 H (4.5-11.0) K/mm3 RBC 3.47 L (3.65-5.03) M/mm3 Hgb 7.5 L (10.1-14.3) gm/dl Hct 26.0 L (30.3-42.9) % MCV 75 L (79-97) fl MCH 22 L (28-32) pg MCHC 29 L (30-34) % RDW 21.6 H (13.2-15.2) % Plt Count 132 L (140-440) K/mm3 D-Dimer 2655.00 H (0-234) ng/mlDDU Sodium (137-145) mmol/L Chloride (98-107) mmol/L BUN (7-17) mg/dL Glucose (65-100) mg/dL POC Glucose 154 H (70-105) mg/dL Calcium (8.4-10.2) mg/dL AST (5-40) units/L ALT (7-56) units/L Total Protein (6.3-8.2) g/dL Albumin (3.9-5) g/dL 11/11/21 Range/Units 12:38 WBC (4.5-11.0) K/mm3 RBC (3.65-5.03) M/mm3 Hgb (10.1-14.3) gm/dl Hct (30.3-42.9) % MCV (79-97) fl MCH (28-32) pg MCHC (30-34) % RDW (13.2-15.2) % Plt Count (140-440) K/mm3 D-Dimer (0-234) ng/mlDDU Sodium (137-145) mmol/L Chloride (98-107) mmol/L BUN (7-17) mg/dL Glucose (65-100) mg/dL POC Glucose 137 H (70-105) mg/dL Calcium (8.4-10.2) mg/dL AST (5-40) units/L ALT (7-56) units/L Total Protein (6.3-8.2) g/dL Albumin (3.9-5) g/dL
[2021-11-11] MEDS ORDERED: fentaNYL 100 MCG/2 ML INJ IV ONE (16:22)
--- NOTE | 2021-11-11 16:39 | Procedure Note ---
Date of procedure: 11/11/21 Pre-op diagnosis: pneumothorax; pleural effusion Post-op diagnosis: same Procedure: Emergent procedure Procedure: Right chest tube placement Indication: Acute R. pneumothorax with hypotension Consent: Emergent procedure. notified post stabilization Complications: no immediate procedural complications. Area of right upper anterior chest wall prepped with sterile drape and cleaned with chorahexidine. Using the sternum and mid clavicular junction as guide, area was palpated for 2nd ICS. Area infiltrated with lidocaine generously. Utilizing a modified seldinger technique a finder needle was used for access, pleural space entered at junction of sternal angle and mid clavicular line (2nd LICS) above the rib and air escape was audible, bubbles noted during aspiration upon entering pleural space and pleural fluid was evident. Then wire was threaded through needle into pleural space, small incision made, space dilated with provided dilator then chest tube inserted over wire and sutured in place. Chest tube attached to pleura vac. Yellow pleural fluid was noted to be draining. Catheter secured with sutures, petroleum gauze in place, covered by Tegaderm. airplane captain affixed to pigtail. CXR ordered. Atrium to wall suction CCT: 60 mins Anesthesia: local Surgeon: JASBIR SEVERINO Program/Music Director: CATHERINE HERNANDEZ Estimated blood loss: minimal Specimen disposition: discarded Condition: critical Disposition: ICU
--- NOTE | 2021-11-11 16:53 | Procedure Note ---
Date of procedure: 11/11/21 Pre-op diagnosis: Left lung atelectasis Post-op diagnosis: same (resolved) Procedure: Fiberoptic bronchoscopy with suction of secretions (full dictation # [id number]) Please see dictated notes for full details Anesthesia: local Estimated blood loss: none Pathology: none
[2021-11-11] MEDS: fentaNYL DRIP Premix 2,000 MCG/100 ML BAG IV SCH (17:02)
--- NOTE | 2021-11-11 17:16 | XRay Report ---
CHEST 1 VIEW 11/11/2021 4:10 PM INDICATION / CLINICAL INFORMATION: chest tube placement. COMPARISON: Exam done earlier today FINDINGS: SUPPORT DEVICES: Placement of right chest tube. HEART / MEDIASTINUM: No significant abnormality. LUNGS / PLEURA: Decreased size of right pneumothorax. Otherwise unchanged bilateral opacities. ADDITIONAL FINDINGS: No significant additional findings. IMPRESSION: 1. Decreased size of right pneumothorax following chest tube placement. Signer Name: Ramana Grissom MD Signed: 11/11/2021 5:12 PM Workstation Name: [email or web address]
--- NOTE | 2021-11-11 17:46 | Progress Note ---
<JASBIR SEVERINO - Last Filed: 11/11/21 17:49> Assessment and Plan Assessment and plan: This is a 81-year-old female with known history of diabetes mellitus, hypertension, PPM, and arthritis admitted for sepsis and acute hypoxia respiratory failure 2/2 bilateral pneumonia requiring intubation and ventilatory support Assessment and Plan Septic shock, POA, bilateral pneumonia, bacteremia -Infectious disease consulted, appreciate recommendations -COVID-19 PCR negative -Presented with fevers, leukocytosis and hypotension -11/04 blood cultures positive with a group B strep bacteremia however repeat blood cultures on the with no growth to date -Echo showed no evidence of vegetation -ABX therapy with ceftriaxone and clindamycin -Completed clindamycin, 2 weeks of ceftriaxone planned (11/04) -Monitor WBC and fever curve -Noted to have fever today -UA/PC/CXR ordered -Bedside bronchoscopy for mucous plug on CXR 11/11 Acute hypoxic respiratory failure secondary to bilateral pneumonia, bilateral pleural effusion. Right pneomothorax -COVID-19 PCR negative -Intubated on 11/06 with 6.00 ETT at 18 at the lip -A.m. vent settings: Assist-control rate 16, tidal volume 350, PEEP 6, FiO2 40% -See RT notes for titration -11/11: Changed over bougie to 7.50 ETT at 22 at the lip -Current vent settings AC, rate 25, tidal and 400, FiO2 100%, PEEP 6 -S/p bedside bronchoscopy on 11/11 -Post bronc noted to have transient hypotension-> given LR bolus, Levophed drip -Complicated by pneumothorax -S/p chest tube placement for right pneumothorax -Chest tube to wall suction -ABG/CXR per CCM -VAP bundle -Right chest wall ultrasound shows pleural effusion -SPO2 monitoring -Mucomyst every 8 -Albuterol every 8 Acute DVT in the right external iliac vein, common femoral vein, superior aspect of femoral vein, elevated ddimer -Evidenced on bilateral upper lower extremity ultrasound -Therapeutic Lovenox Heart failure with reduced EF, h/o chronic heart block s/p PPM -S/p vasopressor support -11/04 echocardiogram shows EF 30 to 35% -Cardiology consulted, appreciate recommendations -Continue beta-charleen -Not on aspirin due to allergy -Statins on hold due to elevated LFTs -Blood pressure monitor per protocol Acute encephalopathy -Neurology consulted, appreciate recommendations -CT brain showed no acute events -EEG pending -MRI brain and possible-> patient has metal in her body -Repeat CT head pending -Avoid delirium -Reorientation as needed -TSH/B12/ammonia level pending Acute microcytic anemia -S/p 1 unit PRBC -Trend CBC -Transfuse for hemoglobin less than 7 Transaminitis -Nutrition consult for tube feeding -BR: Senokot -No BM recorded since admission -KUB for a.m. -24-hour positive 475 -Trend LFTs h/o HTN/CAD s/p PCI (2004) -Statin on hold due to transaminitis -Hold home antihypertensive and resume as tolerated -Blood pressure monitoring per protocol h/o DM -SSI -Accu-Cheks every 6 -Avoid hypoglycemia h/o hypothyroidism -Continue home Synthroid DVT/GI prophylaxis -Therapeutic Lovenox, PPI The high probability of a clinically significant, sudden or life threatening deterioration of the [multi] system(s) required my full and direct attention, intervention and personal management. The aggregate critical care time was [60] minutes. This time is in addition to time spent performing reported procedures but includes the following: [x] Data Review and interpretation [x] Patient assessment and monitoring of vital signs [x] Documentation [x] Medication orders and management Disposition Plan: ICU Total Time Spent with Patient (Minutes): 60 History Interval history: This is an 82-year-old female with DM, HTN , PPM and arthritis who presented to the emergency department on 11/04 for shortness of breath ongoing for the past 3 days, cough and according to family a fever of 102.2. Upon arrival of EMS patient was found to be tachypneic and hypoxic with SPO2 of 76% on room air which later improved to 88% on nonrebreather. Work-up in the emergency department included a CXR which showed bilateral interstitial pulmonary edema with bilateral pleural effusions and bibasilar opacities, leukocytosis and anemia with a hemoglobin of 6.1. Patient was admitted to the hospitalist service with acute anemia, acute hypoxic respiratory failure, bilateral pneumonia and COVID-19 PUI with consults to pulmonology, infectious disease and later cardiology. Patient was eventually intubated in the emergency department on 11/06. Hospital Course to date: 11/04/2021: Empiric therapy with iv levaquin/vancomycin. COVID PCR pending. Will consult ID. PCCM consulted, will follow recs. Hypotensive this AM, ordered bolus and fluids at 150 cc/hr. May require pressor support if bp does not improve. 11/05/2021: GBS on bcx +, currently on rocephin IV. Currently on bipap due to respiratory distress overnight. Worsening BL opacities on CXR. May be volume overload vs pneumonia. Unfortunately bp too low for lasix at this point. WIll continue levophed and bipap. Once able to tolerate, may do trial of albumin/la six. Call attempt made to Niraj, no response. Will try again tomorrow to update. 11/06/2021: Decompensated overnight requiring intubation. CXR shows worsening interstitial infiltrates. Currenlty on dopamine, levophed, vasopressin. PICC line ordered. Advised RN to place gamble for I/O monitoring. Would benefit from diuresis but very volume overloaded. Prognosis guarded 11/08: Off sedation this am, remains unresponsive only grimace to pain. Hold all sedatives agents for now, patient is off pressors this am. Hypernatremia from today's lab- D5W X1bag, and low K repleted, repeat lab in the am. Severe constipation also noted from KUB, BR added. 11/09: Sudden SPO2 drop in the 60s this am. Patient was manually bagged and deep suctioned. Patient is currently stable on the vent, repeat CXR with no significant change. D/w [facility] Mucomyst and brochodilator added. Patient mentation is unchanged, continue to hold off on sedative agents. Neurology consulted. 11/10: Acute DVT noted on bilateral lower extremity Doppler ultrasound therefore she was started on Lovenox treatment dose. Failed SBT. Hypernatremia and hyperchloremia noted, free water flush adjusted. 11/11: Patient noted to be febrile with increasing of the cytosis, UA/BC sent and CXR ordered. ID escalated antibiotics to cefepime. CXR demonstrated mucous plug, bedside bronchoscopy was performed and O ETT was changed over bougie from 6 cm to 7.5. Patient was noted to have a pneumothorax postprocedure and chest tube was placed. Family updated by [facility]. Free water flush increased and will add Jaswant supplementation. Hospitalist Physical - Constitutional Vitals: Temp Pulse Resp BP Pulse Ox 101.5 F H 92 H 25 H 126/49 100 11/11/21 16:00 11/11/21 17:00 11/11/21 16:00 11/11/21 17:00 11/11/21 17:00 General appearance: Present: no acute distress, other (On the vent) - EENT Eyes: Present: PERRL, EOM intact ENT: poor dentition - Neck Neck: Present: normal ROM - Respiratory Respiratory effort: normal Respiratory: bilateral: diminished - Cardiovascular Rhythm: regular Heart Sounds: Present: S1 & S2. Absent: systolic murmur, diastolic murmur - Extremities Extremities: no ischemia, pulses intact, pulses symmetrical, normal temperature, normal color Peripheral Pulses: within normal limits - Abdominal General gastrointestinal: soft, non-tender, non-distended, normal bowel sounds - Integumentary Integumentary: Present: warm, dry - Psychiatric Psychiatric: cooperative - Neurologic Neurologic: CNII-XII intact - Allied Health Allied health notes reviewed: nursing, RT, social work HEART Score - HEART Score Troponin: Troponin T 0.033 ng/mL (0.00-0.029) H 11/05/21 06:11 Results - Labs CBC & Chem 7: 11/11/21 04:28 11/11/21 04:28 Labs: Laboratory Last Values WBC 20.9 K/mm3 (4.5-11.0) H 11/11/21 04:28 RBC 3.47 M/mm3 (3.65-5.03) L 11/11/21 04:28 Hgb 7.5 gm/dl (10.1-14.3) L 11/11/21 04:28 Hct 26.0 % (30.3-42.9) L 11/11/21 04:28 MCV 75 fl (79-97) L 11/11/21 04:28 MCH 22 pg (28-32) L 11/11/21 04:28 MCHC 29 % (30-34) L 11/11/21 04:28 RDW 21.6 % (13.2-15.2) H 11/11/21 04:28 Plt Count 132 K/mm3 (140-440) L 11/11/21 04:28 Add Manual Diff Complete 11/06/21 15:50 Total Counted 100 11/06/21 15:50 Seg Neutrophils % Staking Engineer 11/06/21 15:50 Seg Neuts % (Manual) 92.0 % (40.0-70.0) H 11/06/21 15:50 Band Neutrophils % 0 % 11/06/21 15:50 Lymphocytes % (Manual) 5.0 % (13.4-35.0) L 11/06/21 15:50 Reactive Lymphs % (Man) 0 % 11/06/21 15:50 Monocytes % (Manual) 3.0 % (0.0-7.3) 11/06/21 15:50 Eosinophils % (Manual) 0 % (0.0-4.3) 11/06/21 15:50 Basophils % (Manual) 0 % (0.0-1.8) 11/06/21 15:50 Metamyelocytes % 0 % 11/06/21 15:50 Myelocytes % 0 % 11/06/21 15:50 Promyelocytes % 0 % 11/06/21 15:50 Blast Cells % 0 % 11/06/21 15:50 Nucleated RBC % Not Reportable 11/06/21 15:50 Seg Neutrophils # Man 23.5 K/mm3 (1.8-7.7) H 11/06/21 15:50 Band Neutrophils # 0.0 K/mm3 11/06/21 15:50 Lymphocytes # (Manual) 1.3 K/mm3 (1.2-5.4) 11/06/21 15:50 Abs React Lymphs (Man) 0.0 K/mm3 11/06/21 15:50 Monocytes # (Manual) 0.8 K/mm3 (0.0-0.8) 11/06/21 15:50 Eosinophils # (Manual) 0.0 K/mm3 (0.0-0.4) 11/06/21 15:50 Basophils # (Manual) 0.0 K/mm3 (0.0-0.1) 11/06/21 15:50 Metamyelocytes # 0.0 K/mm3 11/06/21 15:50 Myelocytes # 0.0 K/mm3 11/06/21 15:50 Promyelocytes # 0.0 K/mm3 11/06/21 15:50 Blast Cells # 0.0 K/mm3 11/06/21 15:50 WBC Morphology Not Reportable 11/06/21 15:50 Hypersegmented Neuts Not Reportable 11/06/21 15:50 Hyposegmented Neuts Not Reportable 11/06/21 15:50 Hypogranular Neuts Not Reportable 11/06/21 15:50 Smudge Cells Not Reportable 11/06/21 15:50 Toxic Granulation Not Reportable 11/06/21 15:50 Toxic Vacuolation Not Reportable 11/06/21 15:50 Dohle Bodies Not Reportable 11/06/21 15:50 Pelger-Huet Anomaly Not Reportable 11/06/21 15:50 Irina Rods Not Reportable 11/06/21 15:50 Platelet Estimate Consistent w auto 11/06/21 15:50 Clumped Platelets Not Reportable 11/06/21 15:50 Plt Clumps, EDTA Not Reportable 11/06/21 15:50 Large Platelets Not Reportable 11/06/21 15:50 Giant Platelets Not Reportable 11/06/21 15:50 Platelet Satelliting Not Reportable 11/06/21 15:50 Plt Morphology Comment Not Reportable 11/06/21 15:50 RBC Morphology Not Reportable 11/06/21 15:50 Dimorphic RBCs Not Reportable 11/06/21 15:50 Polychromasia Not Reportable 11/06/21 15:50 Hypochromasia 2+ 11/06/21 15:50 Poikilocytosis Not Reportable 11/06/21 15:50 Anisocytosis 1+ 11/06/21 15:50 Microcytosis Not Reportable 11/06/21 15:50 Macrocytosis Not Reportable 11/06/21 15:50 Spherocytes Not Reportable 11/06/21 15:50 Pappenheimer Bodies Not Reportable 11/06/21 15:50 Sickle Cells Not Reportable 11/06/21 15:50 Target Cells Not Reportable 11/06/21 15:50 Tear Drop Cells Not Reportable 11/06/21 15:50 Ovalocytes Not Reportable 11/06/21 15:50 Helmet Cells Not Reportable 11/06/21 15:50 [place] Bodies Not Reportable 11/06/21 15:50 [place] Rings Not Reportable 11/06/21 15:50 Sc[place]ey Cells Not Reportable 11/06/21 15:50 Bite Cells Not Reportable 11/06/21 15:50 Crenated Cell Not Reportable 11/06/21 15:50 Elliptocytes Not Reportable 11/06/21 15:50 Acanthocytes (Spur) Not Reportable 11/06/21 15:50 Rouleaux Not Reportable 11/06/21 15:50 Hemoglobin C Crystals Not Reportable 11/06/21 15:50 Schistocytes Not Reportable 11/06/21 15:50 Malaria parasites Not Reportable 11/06/21 15:50 Godfrey Bodies Not Reportable 11/06/21 15:50 Hem Pathologist Commnt No 11/06/21 15:50 PT 18.6 Sec. (12.2-14.9) H 11/03/21 22:32 INR 1.40 (0.87-1.13) H 11/03/21 22:32 APTT 28.9 Sec. (24.2-36.6) 11/03/21 22:32 D-Dimer 2655.00 ng/mlDDU (0-234) H 11/11/21 04:28 ABG pH 7.430 pH Units (7.350-7.450) 11/10/21 15:35 ABG pCO2 39.3 mm Hg 11/10/21 15:35 ABG pO2 126.6 mm Hg (80.0-90.0) H 11/10/21 15:35 ABG HCO3 25.6 mmol/L (20.0-26.0) 11/10/21 15:35 ABG O2 Saturation 98.5 % (95.0-99.0) 11/10/21 15:35 ABG O2 Content 10.3 (0.0-44) 11/10/21 15:35 ABG Base Excess 1.2 mmol/L (-2.0-3.0) 11/10/21 15:35 ABG Hemoglobin 7.4 gm/dl (12.0-16.0) L 11/10/21 15:35 ABG Carboxyhemoglobin 1.9 % (0.0-5.0) 11/10/21 15:35 ABG Methemoglobin 0.5 % (0.0-1.5) 11/10/21 15:35 Oxyhemoglobin 96.2 % (95.0-99.0) 11/10/21 15:35 FiO2 40 % 11/10/21 15:35 Sodium 149 mmol/L (137-145) H 11/11/21 04:28 Potassium 3.8 mmol/L (3.6-5.0) 11/11/21 04:28 Chloride 112.2 mmol/L (98-107) H 11/11/21 04:28 Carbon Dioxide 26 mmol/L (22-30) 11/11/21 04:28 Anion Gap 15 mmol/L 11/11/21 04:28 BUN 34 mg/dL (7-17) H 11/11/21 04:28 Creatinine 0.6 mg/dL (0.6-1.2) 11/11/21 04:28 Estimated GFR > 60 ml/min 11/11/21 04:28 BUN/Creatinine Ratio 57 % 11/11/21 04:28 Glucose 148 mg/dL (65-100) H 11/11/21 04:28 POC Glucose 137 mg/dL (70-105) H 11/11/21 12:38 Lactic Acid 3.70 mmol/L (0.7-2.0) H* 11/03/21 22:32 Calcium 7.9 mg/dL (8.4-10.2) L 11/11/21 04:28 Phosphorus 2.60 mg/dL (2.5-4.5) 11/10/21 04:00 Magnesium 1.70 mg/dL (1.7-2.3) 11/10/21 04:00 Ferritin 52.6 ng/mL (10.0-200.0) 11/05/21 06:11 Total Bilirubin 0.30 mg/dL (0.1-1.2) 11/11/21 04:28 Direct Bilirubin < 0.2 mg/dL (0-0.2) 11/11/21 04:28 Indirect Bilirubin 0.1 mg/dL 11/11/21 04:28 AST 53 units/L (5-40) H 11/11/21 04:28 ALT 203 units/L (7-56) H 11/11/21 04:28 Alkaline Phosphatase 124 units/L (35-129) 11/11/21 04:28 Ammonia 42.0 umol/L (25-60) 11/10/21 14:08 Lactate Dehydrogenase 187 units/L (91-180) H 11/05/21 06:11 Troponin T 0.033 ng/mL (0.00-0.029) H 11/05/21 06:11 C-Reactive Protein 22.20 mg/dL (0.00-1.30) H 11/05/21 06:11 NT-Pro-B Natriuret Pep 7895 pg/mL (0-900) H 11/03/21 22:32 Total Protein 4.9 g/dL (6.3-8.2) L 11/11/21 04:28 Albumin 2.6 g/dL (3.9-5) L 11/11/21 04:28 Albumin/Globulin Ratio 1.1 % 11/11/21 04:28 Triglycerides 66 mg/dL (2-149) 11/03/21 22:32 Cholesterol 80 mg/dL (50-199) 11/03/21 22:32 LDL Cholesterol Direct 34 mg/dL (50-130) L 11/03/21 22:32 HDL Cholesterol 42 mg/dL (40-59) 11/03/21 22:32 Cholesterol/HDL Ratio 1.90 % 11/03/21 22:32 Vitamin B12 1823 pg/mL (211-911) H 11/10/21 14:08 TSH 1.510 mlU/mL (0.270-4.200) 11/10/21 14:08 Urine Color Yellow (Yellow) 11/11/21 09:00 Urine Turbidity Slightly-cloudy (Clear) 11/11/21 09:00 Urine pH 5.0 (5.0-7.0) 11/11/21 09:00 Ur Specific [place] 1.009 (1.003-1.030) 11/11/21 09:00 Urine Protein <15 mg/dl mg/dL (Negative) 11/11/21 09:00 Urine Glucose (UA) Neg mg/dL (Negative) 11/11/21 09:00 Urine Ketones Neg mg/dL (Negative) 11/11/21 09:00 Urine Blood Mod (Negative) 11/11/21 09:00 Urine Nitrite Neg (Negative) 11/11/21 09:00 Urine Bilirubin Neg (Negative) 11/11/21 09:00 Urine Urobilinogen < 2.0 mg/dL (<2.0) 11/11/21 09:00 Ur Leukocyte Esterase Neg (Negative) 11/11/21 09:00 Urine WBC (Auto) < 1.0 /HPF (0.0-6.0) 11/11/21 09:00 Urine RBC (Auto) < 1.0 /HPF (0.0-6.0) 11/11/21 09:00 Coronavirus (PCR) Negative (Negative) 11/10/21 08:30 Blood Type O POSITIVE 11/03/21 23:57 Antibody Screen Negative 11/03/21 23:57 Crossmatch See Detail 11/03/21 23:57 Microbiology: Microbiology 11/11/21 14:22 Peripheral/Venous Blood Culture - Preliminary Culture in Progress 11/11/21 14:36 Peripheral/Venous Blood Culture - Preliminary Culture in Progress Gamble/IV: Voiding Method Indwelling Catheter Active Medications - Current Medications Current Medications: Generic Name Dose Route Start Last Admin Trade Name Freq PRN Reason Stop Dose Admin Acetaminophen 650 mg 11/04/21 02:03 11/11/21 08:40 Acetaminophen 325 Mg Tab PO 650 mg Q6H PRN Administration Pain MILD(1-3)/Fever >100.5/RODRIGUEZ Acetylcysteine 200 mg 11/10/21 00:00 11/11/21 01:56 Acetylcysteine 20% 200 Mg/1 Ml *For Inhalation Use* INHALATION 11/12/21 16:01 Not Given Q8HRT [facility] Albuterol 2.5 mg 11/10/21 00:00 11/11/21 01:56 Albuterol 2.5 Mg/3 Ml Nebu IH 11/12/21 16:01 Not Given Q8HRT [facility] Lipase/Protease/Amylase 1 each 11/08/21 11:09 Lipase 10,500/Protease 25,000/Amylase 43,750 (Units) Dr Lema FEEDTUBE PRN PRN For Clogged Feeding Tube Dextrose 0 ml 11/10/21 10:52 Dextrose 10% *Hypoglycemia IV PRN PRN Hypoglycemia Docusate Sodium 100 mg 11/08/21 12:00 11/11/21 10:09 Docusate Sodium 100 Mg/10 Ml Oral Liqd PO 100 mg BID YOSSI Administration Enoxaparin Sodium 60 mg 11/10/21 22:00 11/11/21 10:09 Enoxaparin 60 Mg/0.6 Ml Inj SUB-Q 60 mg Q12HR YOSSI Administration Protocol Famotidine 10 mg 11/11/21 22:00 Famotidine 10 Mg Tab FEEDTUBE BID [facility] Fentanyl 50 mcg 11/11/21 16:22 Fentanyl 100 Mcg/2 Ml Inj IV Q10MIN PRN ANALGESIA Furosemide 20 mg 11/08/21 18:00 11/11/21 05:59 Furosemide 20 Mg/2 Ml Inj IV 20 mg 0600,1800 [facility] Administration Hydrophilic Ointment 1 applic 11/06/21 04:02 Lip Therapy Vaseline TP Q2HR PRN Dry Lips NORepinephrine/NS 8 MG-250 ML 8 mg in 250 mls @ 3.75 mls/hr 11/05/21 09:00 11/07/21 08:45 Norepinephrine/Ns 8 Mg-250 Ml (Double Conc) IV Infused TITRATE [facility] Titration Protocol 2 MCG/MIN Vasopressin 20 unit/ Sodium 101 mls @ 9.09 mls/hr 11/05/21 23:00 11/06/21 01:00 Chloride IV 0.03 units/min TITR YOSSI 9.09 mls/hr Administration Protocol 0.03 UNITS/MIN Cefepime HCl 2 gm in 100 mls @ 200 mls/hr 11/11/21 17:00 Cefepime/Ns 2 Gm/100 Ml IV Q8H [facility] Protocol Lactated Ringer's 1,000 mls @ 999 mls/hr 11/11/21 17:00 Lactated Ringers IV 11/11/21 18:00 BOLUS ONE Fentanyl Citrate 2,000 mcg in 100 mls @ 3.12 mls/hr 11/11/21 17:00 11/11/21 17:02 Fentanyl Drip Premix IV 1 mcg/kg/hr TITR YOSSI 3.12 mls/hr Administration Protocol 1 MCG/KG/HR Insulin Human Lispro 0 unit 11/06/21 12:00 11/11/21 05:59 Insulin Lispro 100 Unit/Ml SUB-Q 2 unit Q6HR [facility] Administration Protocol Levothyroxine Sodium 125 mcg 11/05/21 07:00 11/11/21 05:59 Levothyroxine 125 Mcg Tab PO 125 mcg DAILY@0600 [facility] Administration Magnesium Hydroxide 30 ml 11/04/21 02:03 Magnesium Hydroxide (Mom) Oral Liqd Udc PO Q4H PRN Constipation Metoprolol Tartrate 25 mg 11/11/21 11:00 Metoprolol Tartrate 25 Mg Tab FEEDTUBE BID YOSSI Multi-Ingred Cream/Lotion/Oil/Oint 1 applic 11/06/21 04:02 Mineral Oil/Petrolatum, White Ophth Oint 3.5 Gm OU Q4HR PRN Dry Eye(s) Ondansetron HCl 4 mg 11/04/21 02:03 11/05/21 15:48 Ondansetron 4 Mg/2 Ml Inj IV 4 mg Q8H PRN Administration Nausea And Vomiting Polyethylene Glycol 17 gm 11/08/21 12:00 11/11/21 10:09 Polyethylene Glycol 3350 17 Gm Powder PO 17 gm QDAY YOSSI Administration Senna 17.6 mg 11/08/21 22:00 11/11/21 10:09 Sennosides Oral Liqd 8.8 Mg/5 Ml Oral Liqd PO 17.6 mg Q12HR YOSSI Administration Simple Syrup 15 ml 11/08/21 11:09 Simple Syrup 15 Ml FEEDTUBE PRN PRN Hypoglycemia Simple Syrup 30 ml 11/08/21 11:09 Simple Syrup 15 Ml FEEDTUBE PRN PRN Hypoglycemia Sodium Bicarbonate 325 mg 11/08/21 11:09 Sodium Bicarbonate 325 Mg Tab FEEDTUBE PRN PRN For Clogged Feeding Tube Sodium Chloride 10 ml 11/04/21 10:00 11/10/21 21:42 Sodium Chloride 0.9% 10 Ml Flush Syringe IV Not Given BID YOSSI Sodium Chloride 10 ml 11/04/21 02:03 Sodium Chloride 0.9% 10 Ml Flush Syringe IV PRN PRN LINE FLUSH Sodium Chloride 10 ml 11/10/21 09:57 11/10/21 10:07 Sodium Chloride 0.9% 50 Ml Ivpb IV 10 ml PRN PRN Administration FLUSH Nutrition/Malnutrition Assess - Dietary Evaluation Nutrition/Malnutrition Findings: Nutrition Notes Start: 11/04/21 17:16 Freq: Status: Active Protocol: Document 11/10/21 16:03 ISABELL (Rec: 11/10/21 16:20 ISABELL [id number]) Nutrition Notes Current Diagnosis Diabetes,Sepsis,Hypertension, Respiratory Failure Other Pertinent Diagnosis Severe Sepsis/Bacteremia, Bilateral Pneumonia. Current Diet TF-Vital AF @ 60 ml/hr (since L 11/08). Height 5 ft Weight 58.967 kg [place] Body Weight (kg) 45.45 BMI 25.4 Weight change and time frame No body weight change reported . Weight Status Appropriate Subjective/Other Information RD consult for TF tolerance. TF well tolerated, according to RN notes. Percent of energy/protein needs met: Prescribed Vital AF @ 60 ml/hr provides for energy/protein needs (1,710 Kcal/107 g) during LOS, 100% Kcal; 100% AA . #1 Nutrition Diagnosis Inadequate oral intake Diagnosis Progress(for reassessment Continues documentation) Is patient on ventilator? Yes Is Patient Ambulatory and/or Out of Bed No REE-([place]-St. Jeor-confined to bed) 1166.664 Kcal/Kg value to use for calculation 29 Approximate Energy Requirements Using 1710 kcal/Kg Calculation Used for Recommendations Kcal/kg Additional Notes Protein: 70-118 g/day (1.2-2g/ kg BW/day) Fluids: 1 ml/kcal, or as per MD. Nutrition Intervention Nutrition Support: Continue Vital AF @ 60 ml/hr. Flush: 100 ml water Q 4 hr, or as per MD. Kcal 1,710 Protein (gm) 107 Carbohydrates (gm) 158 Fat (gm) 77 Fluid (mL) 1,156 Fiber (gm) 7 % RDI: 100% Kcal; 100% AA. Goal #1 Provide at least 75% of energy /protein needs through Enteral Feeding during LOS. Goal #2 Maintain body weight within +/ -3% of admission body weight during LOS. Follow-Up By: 11/17/21 Additional Comments Continue monitoring TF tolerance and BM. <FREDERICK DALTON - Last Filed: 11/20/21 12:54> Assessment and Plan Assessment and plan: I saw and evaluated the patient. Discussed with the nurse practitioner and agree with their findings and plan as documented in this note. Hospitalist Physical - Constitutional Vitals: Temp Pulse Resp BP Pulse Ox 97.0 F L 67 12 116/59 96 11/20/21 12:00 11/20/21 12:30 11/20/21 12:30 11/20/21 12:30 11/20/21 12:30 HEART Score - HEART Score Troponin: Troponin T 0.033 ng/mL (0.00-0.029) H 11/05/21 06:11 Results - Labs CBC & Chem 7: 11/20/21 05:40 11/20/21 05:40 Labs: Laboratory Last Values WBC 8.2 K/mm3 (4.5-11.0) 11/20/21 05:40 RBC 3.40 M/mm3 (3.65-5.03) L 11/20/21 05:40 Hgb 9.1 gm/dl (10.1-14.3) L 11/20/21 05:40 Hct 28.8 % (30.3-42.9) L 11/20/21 05:40 MCV 85 fl (79-97) 11/20/21 05:40 MCH 27 pg (28-32) L 11/20/21 05:40 MCHC 31 % (30-34) 11/20/21 05:40 RDW 20.7 % (13.2-15.2) H 11/20/21 05:40 Plt Count 172 K/mm3 (140-440) 11/20/21 05:40 Add Manual Diff Complete 11/16/21 15:25 Total Counted 100 11/16/21 15:25 Seg Neutrophils % Staking Engineer 11/06/21 15:50 Seg Neuts % (Manual) 87.0 % (40.0-70.0) H 11/16/21 15:25 Band Neutrophils % 0 % 11/16/21 15:25 Lymphocytes % (Manual) 8.0 % (13.4-35.0) L 11/16/21 15:25 Reactive Lymphs % (Man) 0 % 11/16/21 15:25 Monocytes % (Manual) 5.0 % (0.0-7.3) 11/16/21 15:25 Eosinophils % (Manual) 0 % (0.0-4.3) 11/16/21 15:25 Basophils % (Manual) 0 % (0.0-1.8) 11/16/21 15:25 Metamyelocytes % 0 % 11/16/21 15:25 Myelocytes % 0 % 11/16/21 15:25 Promyelocytes % 0 % 11/16/21 15:25 Blast Cells % 0 % 11/16/21 15:25 Nucleated RBC % Not Reportable 11/16/21 15:25 Seg Neutrophils # Man 15.0 K/mm3 (1.8-7.7) H 11/16/21 15:25 Band Neutrophils # 0.0 K/mm3 11/16/21 15:25 Lymphocytes # (Manual) 1.4 K/mm3 (1.2-5.4) 11/16/21 15:25 Abs React Lymphs (Man) 0.0 K/mm3 11/16/21 15:25 Monocytes # (Manual) 0.9 K/mm3 (0.0-0.8) H 11/16/21 15:25 Eosinophils # (Manual) 0.0 K/mm3 (0.0-0.4) 11/16/21 15:25 Basophils # (Manual) 0.0 K/mm3 (0.0-0.1) 11/16/21 15:25 Metamyelocytes # 0.0 K/mm3 11/16/21 15:25 Myelocytes # 0.0 K/mm3 11/16/21 15:25 Promyelocytes # 0.0 K/mm3 11/16/21 15:25 Blast Cells # 0.0 K/mm3 11/16/21 15:25 WBC Morphology Not Reportable 11/16/21 15:25 Hypersegmented Neuts Not Reportable 11/16/21 15:25 Hyposegmented Neuts Not Reportable 11/16/21 15:25 Hypogranular Neuts Not Reportable 11/16/21 15:25 Smudge Cells Not Reportable 11/16/21 15:25 Toxic Granulation Not Reportable 11/16/21 15:25 Toxic Vacuolation Not Reportable 11/16/21 15:25 Dohle Bodies Not Reportable 11/16/21 15:25 Pelger-Huet Anomaly Not Reportable 11/16/21 15:25 Irina Rods Not Reportable 11/16/21 15:25 Platelet Estimate Consistent w auto 11/16/21 15:25 Clumped Platelets Rare 11/16/21 15:25 Plt Clumps, EDTA Not Reportable 11/16/21 15:25 Large Platelets Not Reportable 11/16/21 15:25 Giant Platelets Not Reportable 11/16/21 15:25 Platelet Satelliting Not Reportable 11/16/21 15:25 Plt Morphology Comment Not Reportable 11/16/21 15:25 RBC Morphology Not Reportable 11/16/21 15:25 Dimorphic RBCs Not Reportable 11/16/21 15:25 Polychromasia Not Reportable 11/16/21 15:25 Hypochromasia 2+ 11/16/21 15:25 Poikilocytosis Not Reportable 11/16/21 15:25 Anisocytosis 2+ 11/16/21 15:25 Microcytosis Not Reportable 11/16/21 15:25 Macrocytosis Not Reportable 11/16/21 15:25 Spherocytes Not Reportable 11/16/21 15:25 Pappenheimer Bodies Not Reportable 11/16/21 15:25 Sickle Cells Not Reportable 11/16/21 15:25 Target Cells 2+ 11/16/21 15:25 Tear Drop Cells Not Reportable 11/16/21 15:25 Ovalocytes Not Reportable 11/16/21 15:25 Helmet Cells Not Reportable 11/16/21 15:25 [place] Bodies Not Reportable 11/16/21 15:25 [place] Rings Not Reportable 11/16/21 15:25 [place] Cells Not Reportable 11/16/21 15:25 Bite Cells Not Reportable 11/16/21 15:25 Crenated Cell Not Reportable 11/16/21 15:25 Elliptocytes Not Reportable 11/16/21 15:25 Acanthocytes (Spur) Not Reportable 11/16/21 15:25 Rouleaux Not Reportable 11/16/21 15:25 Hemoglobin C Crystals Not Reportable 11/16/21 15:25 Schistocytes Not Reportable 11/16/21 15:25 Malaria parasites Not Reportable 11/16/21 15:25 Godfrey Bodies Not Reportable 11/16/21 15:25 Hem Pathologist Commnt No 11/16/21 15:25 PT 18.6 Sec. (12.2-14.9) H 11/03/21 22:32 INR 1.40 (0.87-1.13) H 11/03/21 22:32 APTT 28.9 Sec. (24.2-36.6) 11/03/21 22:32 D-Dimer 2655.00 ng/mlDDU (0-234) H 11/11/21 04:28 ABG pH 7.407 pH Units (7.350-7.450) 11/14/21 16:14 ABG pCO2 45.6 mm Hg 11/14/21 16:14 ABG pO2 80.6 mm Hg (80.0-90.0) 11/14/21 16:14 ABG HCO3 28.0 mmol/L (20.0-26.0) H 11/14/21 16:14 ABG O2 Saturation 97.0 % (95.0-99.0) 11/14/21 16:14 ABG O2 Content 7.8 (0.0-44) 11/14/21 16:14 ABG Base Excess 3.1 mmol/L (-2.0-3.0) H 11/14/21 16:14 ABG Hemoglobin 5.8 gm/dl (12.0-16.0) L 11/14/21 16:14 ABG Carboxyhemoglobin 2.0 % (0.0-5.0) 11/14/21 16:14 ABG Methemoglobin 0.3 % (0.0-1.5) 11/14/21 16:14 Oxyhemoglobin 94.8 % (95.0-99.0) L 11/14/21 16:14 FiO2 35 % 11/14/21 16:14 Sodium 141 mmol/L (137-145) 11/20/21 05:40 Potassium 3.5 mmol/L (3.6-5.0) L 11/20/21 05:40 Chloride 108.9 mmol/L (98-107) H 11/20/21 05:40 Carbon Dioxide 23 mmol/L (22-30) 11/20/21 05:40 Anion Gap 13 mmol/L 11/20/21 05:40 BUN 37 mg/dL (7-17) H 11/20/21 05:40 Creatinine 0.8 mg/dL (0.6-1.2) 11/20/21 05:40 Estimated GFR > 60 ml/min 11/20/21 05:40 BUN/Creatinine Ratio 46 % 11/20/21 05:40 Glucose 117 mg/dL (65-100) H 11/20/21 05:40 POC Glucose 74 mg/dL (70-105) 11/20/21 12:04 Lactic Acid 3.70 mmol/L (0.7-2.0) H* 11/03/21 22:32 Calcium 7.5 mg/dL (8.4-10.2) L 11/20/21 05:40 Phosphorus 3.80 mg/dL (2.5-4.5) D 11/19/21 04:55 Magnesium 2.30 mg/dL (1.7-2.3) 11/19/21 04:55 Ferritin 52.6 ng/mL (10.0-200.0) 11/05/21 06:11 Total Bilirubin 0.50 mg/dL (0.1-1.2) 11/17/21 05:56 Direct Bilirubin < 0.2 mg/dL (0-0.2) 11/11/21 04:28 Indirect Bilirubin 0.1 mg/dL 11/11/21 04:28 AST 36 units/L (5-40) 11/17/21 05:56 ALT 47 units/L (7-56) 11/17/21 05:56 Alkaline Phosphatase 107 units/L (35-129) 11/17/21 05:56 Ammonia 42.0 umol/L (25-60) 11/10/21 14:08 Lactate Dehydrogenase 187 units/L (91-180) H 11/05/21 06:11 Troponin T 0.033 ng/mL (0.00-0.029) H 11/05/21 06:11 C-Reactive Protein 22.20 mg/dL (0.00-1.30) H 11/05/21 06:11 NT-Pro-B Natriuret Pep 7895 pg/mL (0-900) H 11/03/21 22:32 Total Protein 5.1 g/dL (6.3-8.2) L 11/17/21 05:56 Albumin 2.2 g/dL (3.9-5) L 11/17/21 05:56 Albumin/Globulin Ratio 0.8 % 11/17/21 05:56 Triglycerides 66 mg/dL (2-149) 11/03/21 22:32 Cholesterol 80 mg/dL (50-199) 11/03/21 22:32 LDL Cholesterol Direct 34 mg/dL (50-130) L 11/03/21 22:32 HDL Cholesterol 42 mg/dL (40-59) 11/03/21 22:32 Cholesterol/HDL Ratio 1.90 % 11/03/21 22:32 Vitamin B12 1823 pg/mL (211-911) H 11/10/21 14:08 TSH 1.510 mlU/mL (0.270-4.200) 11/10/21 14:08 Urine Color Yellow (Yellow) 11/11/21 09:00 Urine Turbidity Slightly-cloudy (Clear) 11/11/21 09:00 Urine pH 5.0 (5.0-7.0) 11/11/21 09:00 Ur Specific [place] 1.009 (1.003-1.030) 11/11/21 09:00 Urine Protein <15 mg/dl mg/dL (Negative) 11/11/21 09:00 Urine Glucose (UA) Neg mg/dL (Negative) 11/11/21 09:00 Urine Ketones Neg mg/dL (Negative) 11/11/21 09:00 Urine Blood Mod (Negative) 11/11/21 09:00 Urine Nitrite Neg (Negative) 11/11/21 09:00 Urine Bilirubin Neg (Negative) 11/11/21 09:00 Urine Urobilinogen < 2.0 mg/dL (<2.0) 11/11/21 09:00 Ur Leukocyte Esterase Neg (Negative) 11/11/21 09:00 Urine WBC (Auto) < 1.0 /HPF (0.0-6.0) 11/11/21 09:00 Urine RBC (Auto) < 1.0 /HPF (0.0-6.0) 11/11/21 09:00 Coronavirus (PCR) Negative (Negative) 11/10/21 08:30 Blood Type O POSITIVE 11/18/21 10:45 Antibody Screen Negative 11/18/21 10:45 Crossmatch See Detail 11/18/21 10:45 Gamble/IV: Voiding Method Incontinent Active Medications - Current Medications Current Medications: Generic Name Dose Route Start Last Admin Trade Name Freq PRN Reason Stop Dose Admin Acetaminophen 650 mg 11/04/21 02:03 11/16/21 15:43 Acetaminophen 325 Mg Tab PO 650 mg Q6H PRN Administration Pain MILD(1-3)/Fever >100.5/RODRIGUEZ Hydrocodone Bitart/Acetaminophen 1 each 11/15/21 20:00 11/20/21 09:52 Hydrocodone/Acetaminophen 10-325mg Tab PO 11/20/21 19:59 1 each TID YOSSI Administration Lipase/Protease/Amylase 1 each 11/08/21 11:09 Lipase 10,500/Protease 25,000/Amylase 43,750 (Units) Dr Lema FEEDTUBE PRN PRN For Clogged Feeding Tube Buspirone HCl 7.5 mg 11/17/21 22:00 11/20/21 09:52 Buspirone 5 Mg Tab PO 7.5 mg BID YOSSI Administration Dextrose 0 ml 11/10/21 10:52 11/20/21 12:37 Dextrose 10% *Hypoglycemia IV 50 ml PRN PRN Administration Hypoglycemia Docusate Sodium 100 mg 11/08/21 12:00 11/20/21 09:08 Docusate Sodium 100 Mg/10 Ml Oral Liqd PO Not Given BID YOSSI Fentanyl 1 applic 11/17/21 13:00 11/20/21 09:07 Fentanyl 25 Mcg/Hr Patch 72hr TD 1 applic Q3D YOSSI Administration Fentanyl 25 mcg 11/19/21 18:09 11/20/21 07:05 Fentanyl 100 Mcg/2 Ml Inj IV 11/21/21 18:08 25 mcg Q2HR PRN Administration Pain, Moderate (4-6) Hydrophilic Ointment 1 applic 11/06/21 04:02 Lip Therapy Vaseline TP Q2HR PRN Dry Lips NORepinephrine/NS 8 MG-250 ML 8 mg in 250 mls @ 3.75 mls/hr 11/05/21 09:00 11/18/21 03:26 Norepinephrine/Ns 8 Mg-250 Ml (Double Conc) IV 0 mcg/min TITRATE YOSSI 0 mls/hr Titration Protocol 2 MCG/MIN Vasopressin 20 unit/ Sodium 101 mls @ 9.09 mls/hr 11/05/21 23:00 11/06/21 01:00 Chloride IV 0.03 units/min TITR YOSSI 9.09 mls/hr Administration Protocol 0.03 UNITS/MIN Pantoprazole Sodium 80 mg/ 100 mls @ 10 mls/hr 11/16/21 17:00 11/20/21 01:34 Sodium Chloride IV 8 mg/hr DIRECT YOSSI 10 mls/hr Administration 8 MG/HR Fentanyl Citrate 2,000 mcg in 100 mls @ 3.12 mls/hr 11/17/21 13:00 11/20/21 10:11 Fentanyl Drip Premix IV 3 mcg/kg/hr TITR YOSSI 9.36 mls/hr Titration Protocol 1 MCG/KG/HR Dextrose 1,000 mls @ 75 mls/hr 11/17/21 16:00 11/20/21 06:44 D5w IV 11/21/21 05:19 75 mls/hr DIRECT YOSSI Administration Insulin Human Lispro 0 unit 11/06/21 12:00 11/20/21 12:40 Insulin Lispro 100 Unit/Ml SUB-Q Not Given Q6HR [facility] Protocol Levothyroxine Sodium 125 mcg 11/05/21 07:00 11/20/21 05:29 Levothyroxine 125 Mcg Tab PO Not Given DAILY@0600 YOSSI Magnesium Hydroxide 30 ml 11/04/21 02:03 Magnesium Hydroxide (Mom) Oral Liqd Udc PO Q4H PRN Constipation Multi-Ingred Cream/Lotion/Oil/Oint 1 applic 11/06/21 04:02 Mineral Oil/Petrolatum, White Ophth Oint 3.5 Gm OU Q4HR PRN Dry Eye(s) Ondansetron HCl 4 mg 11/04/21 02:03 11/05/21 15:48 Ondansetron 4 Mg/2 Ml Inj IV 4 mg Q8H PRN Administration Nausea And Vomiting Polyethylene Glycol 17 gm 11/08/21 12:00 11/20/21 09:08 Polyethylene Glycol 3350 17 Gm Powder PO Not Given QDAY [facility] Potassium Chloride 40 meq 11/20/21 09:00 11/20/21 09:51 Potassium Chloride 20 Meq Packet FEEDTUBE 11/20/21 13:00 40 meq ONCE@0900 [facility] Administration Pravastatin Sodium 20 mg 11/18/21 22:00 11/19/21 22:54 Pravastatin 20 Mg Tab PO Not Given QHS [facility] Senna 17.6 mg 11/08/21 22:00 11/20/21 09:08 Sennosides Oral Liqd 8.8 Mg/5 Ml Oral Liqd PO Not Given Q12HR YOSSI Simple Syrup 15 ml 11/08/21 11:09 Simple Syrup 15 Ml FEEDTUBE PRN PRN Hypoglycemia Simple Syrup 30 ml 11/08/21 11:09 Simple Syrup 15 Ml FEEDTUBE PRN PRN Hypoglycemia Sodium Bicarbonate 325 mg 11/08/21 11:09 Sodium Bicarbonate 325 Mg Tab FEEDTUBE PRN PRN For Clogged Feeding Tube Sodium Chloride 10 ml 11/04/21 10:00 11/20/21 09:07 Sodium Chloride 0.9% 10 Ml Flush Syringe IV 10 ml BID YOSSI Administration Sodium Chloride 10 ml 11/04/21 02:03 Sodium Chloride 0.9% 10 Ml Flush Syringe IV PRN PRN LINE FLUSH Sodium Chloride 10 ml 11/10/21 09:57 11/17/21 20:47 Sodium Chloride 0.9% 50 Ml Ivpb IV 10 ml PRN PRN Administration FLUSH Sucralfate 1 gm 11/18/21 16:30 11/20/21 12:00 Sucralfate 1 Gm/10 Ml Oral Liqd PO 1 gm ACHS YOSSI Administration Nutrition/Malnutrition Assess - Dietary Evaluation Nutrition/Malnutrition Findings: Nutrition Notes Start: 11/04/21 17:16 Freq: Status: Active Protocol: Document 11/19/21 16:30 ISABELL (Rec: 11/19/21 16:41 ISABELL [id number]) Nutrition Notes Initial or Follow up Brief Note Current Diet NPO. Height 5 ft Weight 62.4 kg [place] Body Weight (kg) 45.45 BMI 26.9 Weight change and time frame No body weight change reported . Weight Status Appropriate Subjective/Other Information RD consult for routine F/U on TF resume. Pt presented GI bleed. Procedure: EGD with hemostasis and biopsy. Pt continues on mechanical ventilation. indication to continue NPO. Percent of energy/protein needs met: Pt currently on NPO. Nutrition Intervention Follow-Up By: 11/21/21 Additional Comments F/U: TF restart/tolerance, vent status, Na lab/water flush
[2021-11-11] MEDS: METOPROLOL TARTRATE 25 MG TAB FEEDTUBE SCH ×2 (18:43→21:21)
[2021-11-11] MEDS: FAMOTIDINE 10 MG TAB FEEDTUBE SCH (21:18)
[2021-11-12] MEDS: INSULIN LISPRO 100 UNIT/ML SUB-Q SCH ×4 (00:39→19:41)
[2021-11-12] MEDS: FREE WATER PO SCH ×7 (02:38→21:04)
[2021-11-12] MEDS: ACETAMINOPHEN 325 MG TAB PO PRN (05:35)
[2021-11-12] MEDS: CEFEPIME/NS 2 GM/100 ML 2 GM/100 ML BAG IV SCH ×3 (05:36→08:49)
[2021-11-12] MEDS: LEVOTHYROXINE 125 MCG TAB PO SCH (05:37)
[2021-11-12] MEDS: FUROSEMIDE 20 MG/2 ML INJ IV SCH ×2 (05:37→17:04)
[2021-11-12 06:19] LABS: ABG Base Excess 5.2 mmol/L (-2.0-3.0); ABG HCO3 27.2 mmol/L (20.0-26.0); ABG Methemoglobin 0.5 % (0.0-1.5); ABG Oxygen Saturation 99.1 % (95.0-99.0); ABG PCO2 29.2 mm Hg; ABG PH 7.586 pH Units (7.350-7.450); ABG PO2 150.6 mm Hg (80.0-90.0)
--- NOTE | 2021-11-12 09:17 | XRay Report ---
CHEST 1 VIEW 11/12/2021 7:35 AM INDICATION / CLINICAL INFORMATION: Follow-up of pneumothorax. COMPARISON: 11/11/2021 FINDINGS: SUPPORT DEVICES: Stable, satisfactory device positioning. HEART / MEDIASTINUM: Stable. LUNGS / PLEURA: No appreciable residual pneumothorax on the current study. Stable diffuse left lung o pacities. ADDITIONAL FINDINGS: No significant additional findings. IMPRESSION: 1. No appreciable residual pneumothorax on the current exam. Signer Name: Ramana Grissom MD Signed: 11/12/2021 9:13 AM Workstation Name: [email or web address]
[2021-11-12] MEDS: ENOXAPARIN 60 MG/0.6 ML INJ SUB-Q SCH ×2 (09:39→21:02)
[2021-11-12] MEDS: SENNOSIDES ORAL LIQD 8.8 MG/5 ML ORAL LIQD PO SCH ×2 (09:40→21:03)
[2021-11-12] MEDS: DOCUSATE SODIUM 100 MG/10 ML ORAL LIQD PO SCH ×2 (09:40→21:04)
[2021-11-12] MEDS: FAMOTIDINE 10 MG TAB FEEDTUBE SCH ×2 (09:40→21:02)
[2021-11-12] MEDS: POLYETHYLENE GLYCOL 3350 17 GM POWDER PO SCH (09:40)
[2021-11-12] MEDS: METOPROLOL TARTRATE 25 MG TAB FEEDTUBE SCH ×3 (09:40→21:15)
--- NOTE | 2021-11-12 12:05 | Progress Note ---
Assessment and Plan Severe Sepsis POA vs septic shock- 11/03/2021 blood culture: 2 sets positive for GPC Acute respiratory failure with hypoxia, now on MVS Acute microcytic anemia Bilateral pneumonia Left pleural effusion Cardiomyopathy EF 30-35% Moderate pulmonary HTN RVSP 49 - reduced set rate to 14/min - reduced FiO2 to 40% - continue treatment dose Lovenox - continue care as below otherwise; - Daily SAT and SBT assessment as tolerated - continue to wean supplemental oxygen for target O2 sat's > 90% acutely - VAP bundle addressed - continue lung protective strategies - continue bronchodilators with pulmonary hygiene per RT - wean per pulmonary driven protocols otherwise - avoid nephrotoxins, renally dose all medications - continue accuchecks with glycemic control per SSI (While critically ill target blood glucose of 140-180 mg/dL; avoid hypoglycemia) - sedation prn for target RASS 0 to -1 - antibiotics per ID recommendations - continue to avoid benzodiazepine's, reduce the possibility of delirium - prn analgesia per CPOT score - Maintenance of sleep-wake cycle, avoid delirium - continue enteral nutritional support at goal rate as tolerated - G.I. & VTE prophylaxis - PT/OT/ROM exercises - continue mobility protocols for pressure ulcer prophylaxis - Monitor hemodynamics closely - continue other care per attending / other consultants - discharge planning ongoing concurrently COVID SPECIFIC INTERVENTIONS - COVID-19 PCR negative .... Re-evaluate in am & prn CONDITION: CRITICAL PROGNOSIS: GUARDED CODE STATUS: FULL CODE The high probability of a clinically significant, sudden or life-threatening deterioration of the [respiratory, cardiovascular & neurologic] system(s) required my full and direct attention, intervention and personal management. The aggregate critical care time was [34] minutes without overlap. Time includes spent on; [x] Data Review and interpretation [x] Patient assessment and monitoring of vital signs [x] Documentation [x] Medication orders and management Subjective Date of service: 11/12/21 Principal diagnosis: Septic shock; AHRF; Anemia; Pneumonia; L. pleural effusion; HFrEF; Pulm HTN Interval history: Patient is seen today for: Septic shock; Acute hypoxemic respiratory failure; Anemia; Bilateral pneumonia; Left pleural effusion; HFrEF 30-35%; Pulm HTN RVSP 49 Seen and examined at bedside; 24hour events reviewed; nursing and respiratory care staff consulted; no adverse overnight events reported to me; resting in bed; remains on MVS; appropriately responsive; FiO2 at 50% with room to wean; no N/V/F/C; remains on Levophed @ 4 nicole's/min Objective Vital Signs - 12hr 11/12/21 11/12/21 11/12/21 00:15 00:30 00:45 Temperature Pulse Rate 91 H 90 89 Pulse Rate [ From Monitor] Respiratory 25 H 25 H 25 H Rate Blood Pressure 110/46 117/43 107/46 O2 Sat by Pulse Oximetry 11/12/21 11/12/21 11/12/21 01:00 01:15 01:30 Temperature Pulse Rate 91 H 88 89 Pulse Rate [ From Monitor] Respiratory 25 H 25 H 25 H Rate Blood Pressure 116/46 126/46 118/46 O2 Sat by Pulse 99 96 Oximetry 11/12/21 11/12/21 11/12/21 01:45 02:00 02:15 Temperature Pulse Rate 89 87 88 Pulse Rate [ From Monitor] Respiratory 25 H 25 H 25 H Rate Blood Pressure 121/45 116/45 120/45 O2 Sat by Pulse 99 Oximetry 11/12/21 11/12/21 11/12/21 02:30 02:45 03:00 Temperature Pulse Rate 88 88 88 Pulse Rate [ From Monitor] Respiratory 25 H 25 H 25 H Rate Blood Pressure 121/46 120/46 126/48 O2 Sat by Pulse 100 98 98 Oximetry 11/12/21 11/12/21 11/12/21 03:15 03:30 03:45 Temperature Pulse Rate 89 88 86 Pulse Rate [ From Monitor] Respiratory 17 25 H 25 H Rate Blood Pressure 123/48 118/46 121/44 O2 Sat by Pulse Oximetry 11/12/21 11/12/21 11/12/21 04:00 04:15 04:30 Temperature 100.7 F H Pulse Rate 87 91 H 88 Pulse Rate [ 87 From Monitor] Respiratory 25 H 25 H 25 H Rate Blood Pressure 126/46 125/48 123/45 O2 Sat by Pulse 94 Oximetry 11/12/21 11/12/21 11/12/21 04:45 04:53 05:00 Temperature Pulse Rate 92 H 92 H 90 Pulse Rate [ From Monitor] Respiratory 25 H 25 H Rate Blood Pressure 121/50 121/50 131/50 O2 Sat by Pulse 95 100 Oximetry 11/12/21 11/12/21 11/12/21 05:15 05:30 05:45 Temperature Pulse Rate 87 87 87 Pulse Rate [ From Monitor] Respiratory 25 H 25 H 25 H Rate Blood Pressure 125/48 123/50 115/43 O2 Sat by Pulse 94 88 Oximetry 11/12/21 11/12/21 11/12/21 06:00 06:15 06:30 Temperature Pulse Rate 85 85 84 Pulse Rate [ From Monitor] Respiratory 25 H 25 H 25 H Rate Blood Pressure 112/41 108/42 109/40 O2 Sat by Pulse 98 99 99 Oximetry 11/12/21 11/12/21 11/12/21 06:45 07:00 07:15 Temperature Pulse Rate 83 86 85 Pulse Rate [ From Monitor] Respiratory 25 H 26 H 25 H Rate Blood Pressure 106/38 103/35 108/38 O2 Sat by Pulse 99 94 95 Oximetry 11/12/21 08:10 Temperature Pulse Rate 85 Pulse Rate [ From Monitor] Respiratory Rate Blood Pressure 120/48 O2 Sat by Pulse 98 Oximetry Constitutional: no acute distress (sedated), other (ETT to MVS, frail elderly woman with mildly increased respiratory effort at rest) Eyes: non-icteric ENT: oropharynx moist, oropharyngeal exudate pre (clear frothy), other (ETT 23 cm ELIZABETH) Neck: supple, no lymphadenopathy, no JVD Effort: normal, mildly labored Ascultation: Bilateral: diminished breath sounds, rhonchi, other (Right chest tube) Percussion: Bilateral: not dull Cardiovascular: regular rate and rhythm, other (S1,S2) Gastrointestinal: normoactive bowel sounds, soft, non-tender, non-distended Integumentary: normal Extremities: no edema, pink and warm, pulses normal, edema (trace) Neurologic: non-focal exam (grossly), pupils equal and round, CN II-XII normal, unable to assess, other (sedated) Psychiatric: other (sedated) CBC and BMP: 11/11/21 04:28 11/11/21 04:28 ABG, PT/INR, D-dimer: ABG ABG pH 7.586 pH Units (7.350-7.450) H 11/12/21 05:40 ABG pCO2 29.2 mm Hg 11/12/21 05:40 ABG pO2 150.6 mm Hg (80.0-90.0) H 11/12/21 05:40 ABG O2 Saturation 99.1 % (95.0-99.0) H 11/12/21 05:40 PT/INR, D-dimer PT 18.6 Sec. (12.2-14.9) H 11/03/21 22:32 INR 1.40 (0.87-1.13) H 11/03/21 22:32 D-Dimer 2655.00 ng/mlDDU (0-234) H 11/11/21 04:28 Abnormal lab findings: Abnormal Labs 11/03/21 11/03/21 11/03/21 22:32 22:32 22:32 WBC 29.3 H RBC 2.93 L Hgb 6.1 L Hct 21.9 L MCV 75 L MCH 21 L MCHC 28 L RDW 19.7 H Plt Count Seg Neuts % (Manual) 97.0 H Lymphocytes % (Manual) 3.0 L Seg Neutrophils # Man 28.4 H Lymphocytes # (Manual) 0.9 L Monocytes # (Manual) PT 18.6 H INR 1.40 H D-Dimer ABG pH ABG pO2 ABG HCO3 ABG O2 Saturation ABG Base Excess ABG Hemoglobin Oxyhemoglobin Sodium Potassium Chloride Carbon Dioxide 20 L BUN 33 H Glucose 119 H POC Glucose Lactic Acid Calcium 8.3 L AST ALT Alkaline Phosphatase Lactate Dehydrogenase Troponin T 0.035 H C-Reactive Protein NT-Pro-B Natriuret Pep Total Protein Albumin LDL Cholesterol Direct 34 L Vitamin B12 Crossmatch 11/03/21 11/03/21 11/03/21 22:32 22:32 23:57 WBC RBC Hgb Hct MCV MCH MCHC RDW Plt Count Seg Neuts % (Manual) Lymphocytes % (Manual) Seg Neutrophils # Man Lymphocytes # (Manual) Monocytes # (Manual) PT INR D-Dimer ABG pH ABG pO2 ABG HCO3 ABG O2 Saturation ABG Base Excess ABG Hemoglobin Oxyhemoglobin Sodium Potassium Chloride Carbon Dioxide BUN Glucose POC Glucose Lactic Acid 3.70 H* Calcium AST ALT Alkaline Phosphatase 139 H Lactate Dehydrogenase Troponin T C-Reactive Protein NT-Pro-B Natriuret Pep 7895 H Total Protein Albumin 3.5 L LDL Cholesterol Direct Vitamin B12 Crossmatch See Detail 11/04/21 11/04/21 11/05/21 00:59 13:58 00:51 WBC 27.9 H RBC 3.28 L Hgb 7.3 L Hct 25.5 L MCV 78 L MCH 22 L MCHC 29 L RDW 19.1 H Plt Count Seg Neuts % (Manual) 96.0 H Lymphocytes % (Manual) 2.0 L Seg Neutrophils # Man 26.8 H Lymphocytes # (Manual) 0.6 L Monocytes # (Manual) PT INR D-Dimer ABG pH ABG pO2 ABG HCO3 ABG O2 Saturation ABG Base Excess ABG Hemoglobin Oxyhemoglobin Sodium Potassium Chloride Carbon Dioxide BUN Glucose POC Glucose Lactic Acid Calcium AST ALT Alkaline Phosphatase Lactate Dehydrogenase Troponin T 0.051 H D 0.032 H D C-Reactive Protein NT-Pro-B Natriuret Pep Total Protein Albumin LDL Cholesterol Direct Vitamin B12 Crossmatch 11/05/21 11/05/21 11/05/21 06:11 06:11 06:11 WBC 31.8 H RBC 3.57 L Hgb 8.0 L Hct 27.7 L MCV 78 L MCH 22 L MCHC 29 L RDW 19.2 H Plt Count Seg Neuts % (Manual) 91.0 H Lymphocytes % (Manual) 4.5 L Seg Neutrophils # Man 28.9 H Lymphocytes # (Manual) Monocytes # (Manual) 1.1 H PT INR D-Dimer 1494.53 H ABG pH ABG pO2 ABG HCO3 ABG O2 Saturation ABG Base Excess ABG Hemoglobin Oxyhemoglobin Sodium Potassium Chloride Carbon Dioxide 19 L BUN 42 H Glucose 115 H POC Glucose Lactic Acid Calcium AST 43 H ALT Alkaline Phosphatase Lactate Dehydrogenase 187 H Troponin T C-Reactive Protein 22.20 H NT-Pro-B Natriuret Pep Total Protein 6.0 L Albumin 3.2 L LDL Cholesterol Direct Vitamin B12 Crossmatch 11/05/21 11/05/21 11/06/21 06:11 12:15 00:30 WBC RBC Hgb Hct MCV MCH MCHC RDW Plt Count Seg Neuts % (Manual) Lymphocytes % (Manual) Seg Neutrophils # Man Lymphocytes # (Manual) Monocytes # (Manual) PT INR D-Dimer ABG pH ABG pO2 ABG HCO3 ABG O2 Saturation ABG Base Excess ABG Hemoglobin Oxyhemoglobin Sodium Potassium Chloride Carbon Dioxide BUN Glucose POC Glucose 113 H 69 L Lactic Acid Calcium AST ALT Alkaline Phosphatase Lactate Dehydrogenase Troponin T 0.033 H C-Reactive Protein NT-Pro-B Natriuret Pep Total Protein Albumin LDL Cholesterol Direct Vitamin B12 Crossmatch 11/06/21 11/06/21 11/06/21 05:50 15:50 15:50 WBC 25.5 H RBC 3.62 L Hgb 8.0 L Hct 27.5 L MCV 76 L MCH 22 L MCHC 29 L RDW 19.6 H Plt Count Seg Neuts % (Manual) 92.0 H Lymphocytes % (Manual) 5.0 L Seg Neutrophils # Man 23.5 H Lymphocytes # (Manual) Monocytes # (Manual) PT INR D-Dimer ABG pH 7.305 L ABG pO2 ABG HCO3 15.8 L ABG O2 Saturation ABG Base Excess -9.6 L ABG Hemoglobin 8.6 L Oxyhemoglobin 94.6 L Sodium Potassium Chloride 113.9 H Carbon Dioxide 17 L BUN 56 H Glucose 114 H POC Glucose Lactic Acid Calcium 7.9 L AST 1410 H ALT 934 H Alkaline Phosphatase 142 H Lactate Dehydrogenase Troponin T C-Reactive Protein NT-Pro-B Natriuret Pep Total Protein 5.0 L Albumin 2.6 L LDL Cholesterol Direct Vitamin B12 Crossmatch 11/07/21 11/07/21 11/07/21 03:30 04:50 08:07 WBC RBC Hgb Hct MCV MCH MCHC RDW Plt Count Seg Neuts % (Manual) Lymphocytes % (Manual) Seg Neutrophils # Man Lymphocytes # (Manual) Monocytes # (Manual) PT INR D-Dimer ABG pH ABG pO2 296.9 H ABG HCO3 18.1 L ABG O2 Saturation 99.5 H ABG Base Excess -5.9 L ABG Hemoglobin 7.6 L Oxyhemoglobin Sodium Potassium Chloride Carbon Dioxide BUN Glucose POC Glucose 106 H 108 H Lactic Acid Calcium AST ALT Alkaline Phosphatase Lactate Dehydrogenase Troponin T C-Reactive Protein NT-Pro-B Natriuret Pep Total Protein Albumin LDL Cholesterol Direct Vitamin B12 Crossmatch 11/08/21 11/08/21 11/08/21 03:10 18:05 23:43 WBC RBC Hgb Hct MCV MCH MCHC RDW Plt Count Seg Neuts % (Manual) Lymphocytes % (Manual) Seg Neutrophils # Man Lymphocytes # (Manual) Monocytes # (Manual) PT INR D-Dimer ABG pH ABG pO2 127.4 H ABG HCO3 ABG O2 Saturation ABG Base Excess -3.4 L ABG Hemoglobin 7.4 L Oxyhemoglobin Sodium Potassium Chloride Carbon Dioxide BUN Glucose POC Glucose 113 H 141 H Lactic Acid Calcium AST ALT Alkaline Phosphatase Lactate Dehydrogenase Troponin T C-Reactive Protein NT-Pro-B Natriuret Pep Total Protein Albumin LDL Cholesterol Direct Vitamin B12 Crossmatch 11/08/21 11/08/21 11/09/21 Unknown Unknown 02:00 WBC 14.5 H RBC 3.35 L Hgb 7.5 L 8.1 L Hct 25.4 L 27.6 L MCV 76 L 76 L MCH 23 L 22 L MCHC RDW 19.9 H 19.9 H Plt Count Seg Neuts % (Manual) Lymphocytes % (Manual) Seg Neutrophils # Man Lymphocytes # (Manual) Monocytes # (Manual) PT INR D-Dimer ABG pH ABG pO2 ABG HCO3 ABG O2 Saturation ABG Base Excess ABG Hemoglobin Oxyhemoglobin Sodium 154 H D Potassium 3.3 L Chloride 120.7 H Carbon Dioxide 20 L BUN 38 H Glucose POC Glucose Lactic Acid Calcium 8.3 L AST ALT Alkaline Phosphatase Lactate Dehydrogenase Troponin T C-Reactive Protein NT-Pro-B Natriuret Pep Total Protein Albumin LDL Cholesterol Direct Vitamin B12 Crossmatch 11/09/21 11/09/21 11/09/21 02:00 02:31 05:12 WBC RBC Hgb Hct MCV MCH MCHC RDW Plt Count Seg Neuts % (Manual) Lymphocytes % (Manual) Seg Neutrophils # Man Lymphocytes # (Manual) Monocytes # (Manual) PT INR D-Dimer ABG pH 7.479 H ABG pO2 121.3 H ABG HCO3 ABG O2 Saturation ABG Base Excess ABG Hemoglobin 7.3 L Oxyhemoglobin Sodium Potassium Chloride 112.5 H Carbon Dioxide BUN 33 H Glucose 161 H POC Glucose 135 H Lactic Acid Calcium AST 251 H ALT 481 H Alkaline Phosphatase Lactate Dehydrogenase Troponin T C-Reactive Protein NT-Pro-B Natriuret Pep Total Protein 5.0 L Albumin 2.8 L LDL Cholesterol Direct Vitamin B12 Crossmatch 11/09/21 11/09/21 11/09/21 11:33 16:32 23:28 WBC RBC Hgb Hct MCV MCH MCHC RDW Plt Count Seg Neuts % (Manual) Lymphocytes % (Manual) Seg Neutrophils # Man Lymphocytes # (Manual) Monocytes # (Manual) PT INR D-Dimer ABG pH ABG pO2 ABG HCO3 ABG O2 Saturation ABG Base Excess ABG Hemoglobin Oxyhemoglobin Sodium Potassium Chloride Carbon Dioxide BUN Glucose POC Glucose 132 H 133 H 143 H Lactic Acid Calcium AST ALT Alkaline Phosphatase Lactate Dehydrogenase Troponin T C-Reactive Protein NT-Pro-B Natriuret Pep Total Protein Albumin LDL Cholesterol Direct Vitamin B12 Crossmatch 11/10/21 11/10/21 11/10/21 04:00 04:00 05:35 WBC 16.0 H RBC 3.61 L Hgb 8.0 L Hct 27.1 L MCV 75 L MCH 22 L MCHC RDW 20.4 H Plt Count Seg Neuts % (Manual) Lymphocytes % (Manual) Seg Neutrophils # Man Lymphocytes # (Manual) Monocytes # (Manual) PT INR D-Dimer ABG pH ABG pO2 ABG HCO3 ABG O2 Saturation ABG Base Excess ABG Hemoglobin Oxyhemoglobin Sodium 149 H Potassium Chloride 114.1 H Carbon Dioxide BUN 31 H Glucose 148 H POC Glucose 132 H Lactic Acid Calcium 8.2 L AST ALT Alkaline Phosphatase Lactate Dehydrogenase Troponin T C-Reactive Protein NT-Pro-B Natriuret Pep Total Protein Albumin LDL Cholesterol Direct Vitamin B12 Crossmatch 11/10/21 11/10/21 11/10/21 11:31 14:08 15:35 WBC RBC Hgb Hct MCV MCH MCHC RDW Plt Count Seg Neuts % (Manual) Lymphocytes % (Manual) Seg Neutrophils # Man Lymphocytes # (Manual) Monocytes # (Manual) PT INR D-Dimer ABG pH ABG pO2 126.6 H ABG HCO3 ABG O2 Saturation ABG Base Excess ABG Hemoglobin 7.4 L Oxyhemoglobin Sodium Potassium Chloride Carbon Dioxide BUN Glucose POC Glucose 147 H Lactic Acid Calcium AST ALT Alkaline Phosphatase Lactate Dehydrogenase Troponin T C-Reactive Protein NT-Pro-B Natriuret Pep Total Protein Albumin LDL Cholesterol Direct Vitamin B12 1823 H Crossmatch 11/10/21 11/11/21 11/11/21 17:53 00:55 04:28 WBC RBC Hgb Hct MCV MCH MCHC RDW Plt Count Seg Neuts % (Manual) Lymphocytes % (Manual) Seg Neutrophils # Man Lymphocytes # (Manual) Monocytes # (Manual) PT INR D-Dimer ABG pH ABG pO2 ABG HCO3 ABG O2 Saturation ABG Base Excess ABG Hemoglobin Oxyhemoglobin Sodium 149 H Potassium Chloride 112.2 H Carbon Dioxide BUN 34 H Glucose 148 H POC Glucose 140 H 145 H Lactic Acid Calcium 7.9 L AST 53 H ALT 203 H Alkaline Phosphatase Lactate Dehydrogenase Troponin T C-Reactive Protein NT-Pro-B Natriuret Pep Total Protein 4.9 L Albumin 2.6 L LDL Cholesterol Direct Vitamin B12 Crossmatch 11/11/21 11/11/21 11/11/21 04:28 04:28 05:28 WBC 20.9 H RBC 3.47 L Hgb 7.5 L Hct 26.0 L MCV 75 L MCH 22 L MCHC 29 L RDW 21.6 H Plt Count 132 L Seg Neuts % (Manual) Lymphocytes % (Manual) Seg Neutrophils # Man Lymphocytes # (Manual) Monocytes # (Manual) PT INR D-Dimer 2655.00 H ABG pH ABG pO2 ABG HCO3 ABG O2 Saturation ABG Base Excess ABG Hemoglobin Oxyhemoglobin Sodium Potassium Chloride Carbon Dioxide BUN Glucose POC Glucose 154 H Lactic Acid Calcium AST ALT Alkaline Phosphatase Lactate Dehydrogenase Troponin T C-Reactive Protein NT-Pro-B Natriuret Pep Total Protein Albumin LDL Cholesterol Direct Vitamin B12 Crossmatch 11/11/21 11/11/21 11/12/21 12:38 18:13 00:14 WBC RBC Hgb Hct MCV MCH MCHC RDW Plt Count Seg Neuts % (Manual) Lymphocytes % (Manual) Seg Neutrophils # Man Lymphocytes # (Manual) Monocytes # (Manual) PT INR D-Dimer ABG pH ABG pO2 ABG HCO3 ABG O2 Saturation ABG Base Excess ABG Hemoglobin Oxyhemoglobin Sodium Potassium Chloride Carbon Dioxide BUN Glucose POC Glucose 137 H 108 H 137 H Lactic Acid Calcium AST ALT Alkaline Phosphatase Lactate Dehydrogenase Troponin T C-Reactive Protein NT-Pro-B Natriuret Pep Total Protein Albumin LDL Cholesterol Direct Vitamin B12 Crossmatch 11/12/21 11/12/21 11/12/21 05:40 06:24 11:12 WBC RBC Hgb Hct MCV MCH MCHC RDW Plt Count Seg Neuts % (Manual) Lymphocytes % (Manual) Seg Neutrophils # Man Lymphocytes # (Manual) Monocytes # (Manual) PT INR D-Dimer ABG pH 7.586 H ABG pO2 150.6 H ABG HCO3 27.2 H ABG O2 Saturation 99.1 H ABG Base Excess 5.2 H ABG Hemoglobin 7.5 L Oxyhemoglobin Sodium Potassium Chloride Carbon Dioxide BUN Glucose POC Glucose 132 H 140 H Lactic Acid Calcium AST ALT Alkaline Phosphatase Lactate Dehydrogenase Troponin T C-Reactive Protein NT-Pro-B Natriuret Pep Total Protein Albumin LDL Cholesterol Direct Vitamin B12 Crossmatch Chest x-ray: image reviewed (chest tube in place) Allied health notes reviewed: nursing
--- NOTE | 2021-11-12 13:36 | Progress Note ---
Assessment and Plan Cultures: SARS CoV2 PCR: negative 11/03/2021 blood culture: Group B streptococcus 11/04/2021 blood culture: no growth A/P: 81-year-old female with diabetes mellitus, hypertension, arthritis was admitted with shortness of breath. She was also having fever: #Severe sepsis with shock, secondary to bilateral pneumonia: likely from Group B Strep. COVID-19 negative #Group B Strep bacteremia: Likely secondary to above, no other source identified, other possibility is mild lower extremity cellulitis. Does have indwelling cardiac device, per patient it is a pacemaker. TTE showed no valvular or lead vegetations #Acute hypoxic respiratory failure: Secondary to above. Intubated, on the vent. Recs: -Given fevers and worsening white count esclaated to cefepime -Empiric vancomycin pending blood culture results. -Completed synergistic clindamycin -overall guarded prognosis Mahogany Montes MD [facility] ([facility]) O: [phone] F: [phone] Subjective Date of service: 11/12/21 Principal diagnosis: Septic shock; AHRF; Anemia; Pneumonia; L. pleural effusion; HFrEF; Pulm HTN Interval history: Febrile overnight to 100.7 with a white count 20.9. Imaging personally reviewed: Chest x-ray: No residual pneumothorax. Objective - Exam Narrative Exam: Physical exam deferred to reduce risk of transmission of COVID-19. Please refer to primary team's note. - Constitutional Vitals: Vital Signs Temp Pulse Resp BP Pulse Ox 98.4 F 77 25 H 120/48 100 11/12/21 12:00 11/12/21 12:10 11/12/21 07:15 11/12/21 12:10 11/12/21 12:10 Temperature -Last 24 Hours Temperature [Post-Procedure] 101.5 F Temperature 98.4 F Temperature 99.5 F Temperature 100.7 F Temperature 100.3 F Temperature 98.2 F - Labs CBC & Chem 7: 11/11/21 04:28 11/11/21 04:28 Labs: Abnormal lab results 11/11/21 11/12/21 11/12/21 Range/Units 18:13 00:14 05:40 ABG pH 7.586 H (7.350-7.450) pH Units ABG pO2 150.6 H (80.0-90.0) mm Hg ABG HCO3 27.2 H (20.0-26.0) mmol/L ABG O2 Saturation 99.1 H (95.0-99.0) % ABG Base Excess 5.2 H (-2.0-3.0) mmol/L ABG Hemoglobin 7.5 L (12.0-16.0) gm/dl POC Glucose 108 H 137 H (70-105) mg/dL 11/12/21 11/12/21 Range/Units 06:24 11:12 ABG pH (7.350-7.450) pH Units ABG pO2 (80.0-90.0) mm Hg ABG HCO3 (20.0-26.0) mmol/L ABG O2 Saturation (95.0-99.0) % ABG Base Excess (-2.0-3.0) mmol/L ABG Hemoglobin (12.0-16.0) gm/dl POC Glucose 132 H 140 H (70-105) mg/dL
--- NOTE | 2021-11-12 13:41 | Progress Note ---
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 She was found to be in respiratory distress, initially treated with NRB. Pt was also noted to be septic with radiographic evidence of bilateral PNA Acute Respiratory Failure Septic Shock GBS Bacteremia Bilateral Pneumonia Bilateral Pleural Effusions Right pneumothorax and s/p right chest tube Acute HFrEF Cardiomyopathy (EF reduced to 30-35% on echo this admission) NSVT Tn Elevation (?Type 2 [place] in the setting of hypoxia & shock) Elevated LFTs (?shock liver) Anemia Hypokalemia CAD s/p PCI (2004) CHB s/p PPM ([facility]) Hypothyroidism H/o HTN H/o DM Arthritis Echo reviewed - EF 30-35%, mild diastolic dysfunction, RV mildly dilated, moderate MR, moderate TR, moderate pulmonary HTN w/RVSP 49mmHg, no pericardial effusion, large left pleural effusion. Plan: Per documentation patient had bronchoscopy yesterday and developed pneumothorax. Chest tube was inserted Patiet had UOP= [id number] yesterday. Continue gentle IV diuresis with strict I/Os and close monitoring of renal indices & electrolytes. Continue metoprolol 25mg BID. Not on ASA d/t allergy. Statin held in the setting of elevated LFTs. Pt seen in conjunction with Dr. Griggs, who agrees with the assessment and plan of care. - Patient Problems (1) Acute anemia Current Visit: Yes Status: Acute (2) Acute respiratory failure with hypoxia Current Visit: Yes Status: Acute (3) Bilateral pneumonia Current Visit: Yes Status: Acute Subjective Date of service: 11/12/21 Principal diagnosis: Septic shock; AHRF; Anemia; Pneumonia; L. pleural effusion; HFrEF; Pulm HTN Interval history: Patient remained intubated no acute distress Sinus 80s on monitor Objective Vital Signs Temp Temp Pulse Pulse Pulse Resp Resp 11/12/21 12:10 77 11/12/21 12:00 98.4 F 11/12/21 08:10 85 11/12/21 08:00 99.5 F 11/12/21 07:15 85 25 H 11/12/21 07:00 86 26 H 11/12/21 06:45 83 25 H 01/26/22 06:30 84 25 H 11/12/21 06:15 85 25 H 11/12/21 06:00 85 25 H 11/12/21 05:45 87 25 H 11/12/21 05:30 87 25 H 11/12/21 05:15 87 25 H 11/12/21 05:00 90 25 H 11/12/21 04:53 92 H 11/12/21 04:45 92 H 25 H 11/12/21 04:30 88 25 H 11/12/21 04:15 91 H 25 H 11/12/21 04:00 100.7 F H 87 87 25 H 11/12/21 03:45 86 25 H 11/12/21 03:30 88 25 H 11/12/21 03:15 89 17 11/12/21 03:00 88 25 H 11/12/21 02:45 88 25 H 11/12/21 02:30 88 25 H 11/12/21 02:15 88 25 H 11/12/21 02:00 87 25 H 11/12/21 01:45 89 25 H 11/12/21 01:30 89 25 H 11/12/21 01:15 88 25 H 11/12/21 01:00 91 H 25 H 11/12/21 00:45 89 25 H 11/12/21 00:30 90 25 H 11/12/21 00:15 91 H 25 H 11/12/21 00:00 100.3 F H 90 90 24 11/11/21 23:45 91 H 25 H 11/11/21 23:30 91 H 25 H 11/11/21 23:16 91 H 11/11/21 23:15 90 25 H 11/11/21 23:00 91 H 25 H 11/11/21 22:45 92 H 25 H 11/11/21 22:30 91 H 25 H 11/11/21 22:21 90 24 11/11/21 22:15 92 H 25 H 11/11/21 22:11 92 H 25 H 11/11/21 22:00 92 H 25 H 11/11/21 21:51 92 H 25 H 11/11/21 21:45 91 H 25 H 11/11/21 21:41 94 H 25 H 11/11/21 21:30 95 H 25 H 11/11/21 21:21 95 H 25 H 11/11/21 21:15 97 H 21 11/11/21 21:11 96 H 24 11/11/21 21:00 95 H 25 H 11/11/21 20:51 95 H 25 H 11/11/21 20:45 91 H 25 H 11/11/21 20:41 96 H 25 H 11/11/21 20:30 94 H 25 H 11/11/21 20:20 95 H 25 H 11/11/21 20:16 92 H 25 H 11/11/21 20:11 90 21 11/11/21 20:01 92 H 25 H 11/11/21 20:00 98.2 F 91 H 22 11/11/21 19:50 91 H 25 H 11/11/21 19:46 90 23 11/11/21 19:41 91 H 26 H 11/11/21 19:31 90 25 H 11/11/21 19:30 90 25 H 11/11/21 19:20 92 H 25 H 11/11/21 19:16 91 H 25 H 11/11/21 19:11 91 H 25 H 11/11/21 19:01 93 H 25 H 11/11/21 18:50 93 H 25 H 11/11/21 18:41 92 H 26 H 11/11/21 18:31 93 H 25 H 11/11/21 18:20 96 H 25 H 11/11/21 18:11 96 H 25 H 11/11/21 18:01 99 H 17 11/11/21 17:51 97 H 17 11/11/21 17:41 92 H 25 H 11/11/21 17:31 92 H 25 H 11/11/21 17:20 92 H 25 H 11/11/21 17:11 93 H 25 H 11/11/21 17:01 94 H 25 H 11/11/21 17:00 92 H 11/11/21 16:50 90 25 H 11/11/21 16:41 92 H 25 H 11/11/21 16:31 93 H 25 H 11/11/21 16:20 94 H 25 H 11/11/21 16:11 97 H 20 11/11/21 16:01 97 H 25 H 11/11/21 16:00 101.5 F H 93 H 20 25 H 11/11/21 15:50 96 H 29 H 11/11/21 15:41 104 H 30 H 11/11/21 15:30 97 H 21 11/11/21 15:21 88 24 11/11/21 15:11 96 H 13 11/11/21 15:10 11/11/21 15:00 110 H 32 H 11/11/21 14:51 102 H 22 11/11/21 14:41 104 H 13 11/11/21 14:31 100 H 19 11/11/21 14:21 104 H 11/11/21 14:11 108 H 20 11/11/21 14:00 109 H 19 11/11/21 13:51 110 H 21 11/11/21 13:41 113 H 22 BP BP Pulse Ox 11/12/21 12:10 120/48 100 11/12/21 12:00 11/12/21 08:10 120/48 98 11/12/21 08:00 11/12/21 07:15 108/38 95 11/12/21 07:00 103/35 94 11/12/21 06:45 106/38 99 11/12/21 06:30 109/40 99 11/12/21 06:15 108/42 99 11/12/21 06:00 112/41 98 11/12/21 05:45 115/43 88 11/12/21 05:30 123/50 11/12/21 05:15 125/48 94 11/12/21 05:00 131/50 100 11/12/21 04:53 121/50 95 11/12/21 04:45 121/50 11/12/21 04:30 123/45 11/12/21 04:15 125/48 11/12/21 04:00 126/46 94 11/12/21 03:45 121/44 11/12/21 03:30 118/46 11/12/21 03:15 123/48 11/12/21 03:00 126/48 98 11/12/21 02:45 120/46 98 11/12/21 02:30 121/46 100 11/12/21 02:15 120/45 11/12/21 02:00 116/45 11/12/21 01:45 121/45 99 11/12/21 01:30 118/46 96 11/12/21 01:15 126/46 11/12/21 01:00 116/46 99 11/12/21 00:45 107/46 11/12/21 00:30 117/43 11/12/21 00:15 110/46 11/12/21 00:00 120/43 98 11/11/21 23:45 112/43 91 11/11/21 23:30 108/46 98 11/11/21 23:16 111/44 96 11/11/21 23:15 11/11/21 23:00 111/42 11/11/21 22:45 110/43 11/11/21 22:30 104/42 11/11/21 22:21 114/43 11/11/21 22:15 114/43 99 11/11/21 22:11 113/44 11/11/21 22:00 122/45 11/11/21 21:51 122/45 11/11/21 21:45 122/45 11/11/21 21:41 120/48 11/11/21 21:30 120/48 11/11/21 21:21 120/48 11/11/21 21:15 120/48 11/11/21 21:11 119/46 11/11/21 21:00 120/47 11/11/21 20:51 120/47 11/11/21 20:45 120/47 98 11/11/21 20:41 119/45 96 11/11/21 20:30 121/47 96 11/11/21 20:20 119/47 99 11/11/21 20:16 120/45 95 11/11/21 20:11 111/45 11/11/21 20:01 113/47 100 11/11/21 20:00 113/47 100 11/11/21 19:50 114/49 100 11/11/21 19:46 115/48 11/11/21 19:41 118/46 11/11/21 19:31 116/46 11/11/21 19:30 116/46 11/11/21 19:20 111/42 94 11/11/21 19:16 11/11/21 19:11 116/43 98 11/11/21 19:01 122/49 100 11/11/21 18:50 121/49 11/11/21 18:41 122/49 11/11/21 18:31 122/50 11/11/21 18:20 116/53 11/11/21 18:11 128/56 11/11/21 18:01 127/52 100 11/11/21 17:51 114/53 99 11/11/21 17:41 121/45 100 11/11/21 17:31 123/50 100 11/11/21 17:20 125/48 11/11/21 17:11 124/50 11/11/21 17:01 125/53 11/11/21 17:00 126/49 100 11/11/21 16:50 117/50 11/11/21 16:41 127/54 11/11/21 16:31 115/44 11/11/21 16:20 111/46 98 11/11/21 16:11 128/53 91 11/11/21 16:01 130/54 90 11/11/21 16:00 115/44 100 11/11/21 15:50 124/56 100 11/11/21 15:41 110/47 98 11/11/21 15:30 62/35 86 11/11/21 15:21 46/22 100 11/11/21 15:11 108/51 100 11/11/21 15:10 100 11/11/21 15:00 147/75 100 11/11/21 14:51 133/49 100 11/11/21 14:41 133/49 100 11/11/21 14:31 133/49 98 11/11/21 14:21 133/49 96 11/11/21 14:11 133/49 95 11/11/21 14:00 133/49 96 11/11/21 13:51 137/60 96 11/11/21 13:41 137/60 96 - Physical Examination General: Other (intubated) HEENT: Positive: Normocephaly Neck: Positive: neck supple, trachea midline Cardiac: Positive: Reg Rate and Rhythm Lungs: Positive: Ventilated Respirations Neuro: Positive: Other (intubated) Abdomen: Positive: Soft Skin: Negative: Rash, Wound Musculoskeletal: No Fluid Collection Extremities: Present: lower extr. pulses, edema - Imaging and Cardiology EKG: report reviewed, image reviewed Stress echo: report reviewed Echo: report reviewed Cardiac cath: report reviewed - Telemetry EKG Rhythm: Sinus Rhythm - EKG Sinus rhythms and dysrhythmias: sinus rhythm, sinus tachycardia - Allied health notes Allied health notes reviewed: nursing
--- NOTE | 2021-11-12 13:52 | Progress Note ---
Assessment and Plan 81-year-old female with known history of diabetes mellitus, hypertension and arthritis brought to the emergency room via EMS today for shortness of breath which has been ongoing for the past 3 days. Patient has been having some cough and shortness of breath. According to patient's , patient has also been having a fever of about 102.2 F. Upon arrival of EMS patient was found to be tachypneic with O2 saturation of 76% on room air which later improved to 88% on nonrebreather. Work-up in the emergency room today, chest x-ray shows bilateral interstitial pulmonary edema with bilateral pleural effusions.. Bibasilar opacities which favors atelectasis. Assessment and Plan #Acute Encephalopathy - related to infectious process- off sedation today -Ct brain showed no acute event -EEG is slightly slow , no seizure activity is noted -MRI brain unable to do due to pace maker/ foreign body metal .. - will repeat CT brain pending # Diffuse weakness - mostly related to bed ridden - need pt therapy evaluation. #Septic Shock POA #Bilateral Pneumonia #Bacteremia - Presented with fevers, leukocytosis, and hypotension - COVID PCR negative - 11/04 B.cult with 3/4 group B strep bacteremia - 11/04 2D Echo with no evidence of vegetation - Trend CBC #Acute Hypoxic Respiratory Failure 2/2 #Bilateral Pleural Effusion #Bilateral Pneumonia - COVID PCR negative - CXR shows Bilateral opacities, may be volume overloaded. #CHF- EF 30-35% with PPM #Hypotension-improved #Septic Kristian - Was on 3 pressors initially - Off pressors - SR on the monitor, HR 70-90s - 11/04 Echo-EF 30-35% - Maintain MAP above 65 #Acute Microcytic Anemia # Positive US lEs in Right external iliac vein , right common femoral vein and superior aspect right femoral vein #Transaminitis/Shock Liver #DVT Prophylaxis - Continue AC- heparin subQ-Full dose - SCDs to bilateral lower extremities while in bed will follow awak and follows command Subjective Principal diagnosis: Septic shock; AHRF; Anemia; Pneumonia; L. pleural effusion; HFrEF; Pulm HTN Interval history: continues to be intubated awak todat respond to command moving both lower and right upper extremities and to lesser extent left upper positive blood cls plus pneumonia -she is off sedation could not do MRI due to metal in body eeg is reasonably will maintained back ground !!! Ammonia#[id number] b12 and folate wnl US les is remarkable for DVT iliac and femral veins she is on SQ heparin Objective - Vital Sign Vital Signs - 12hr 11/12/21 11/12/21 11/12/21 01:45 02:00 02:15 Temperature Pulse Rate 89 87 88 Pulse Rate [ From Monitor] Respiratory 25 H 25 H 25 H Rate Blood Pressure 121/45 116/45 120/45 O2 Sat by Pulse 99 Oximetry 11/12/21 11/12/21 11/12/21 02:30 02:45 03:00 Temperature Pulse Rate 88 88 88 Pulse Rate [ From Monitor] Respiratory 25 H 25 H 25 H Rate Blood Pressure 121/46 120/46 126/48 O2 Sat by Pulse 100 98 98 Oximetry 11/12/21 11/12/21 11/12/21 03:15 03:30 03:45 Temperature Pulse Rate 89 88 86 Pulse Rate [ From Monitor] Respiratory 17 25 H 25 H Rate Blood Pressure 123/48 118/46 121/44 O2 Sat by Pulse Oximetry 11/12/21 11/12/21 11/12/21 04:00 04:15 04:30 Temperature 100.7 F H Pulse Rate 87 91 H 88 Pulse Rate [ 87 From Monitor] Respiratory 25 H 25 H 25 H Rate Blood Pressure 126/46 125/48 123/45 O2 Sat by Pulse 94 Oximetry 11/12/21 11/12/21 11/12/21 04:45 04:53 05:00 Temperature Pulse Rate 92 H 92 H 90 Pulse Rate [ From Monitor] Respiratory 25 H 25 H Rate Blood Pressure 121/50 121/50 131/50 O2 Sat by Pulse 95 100 Oximetry 11/12/21 11/12/21 11/12/21 05:15 05:30 05:45 Temperature Pulse Rate 87 87 87 Pulse Rate [ From Monitor] Respiratory 25 H 25 H 25 H Rate Blood Pressure 125/48 123/50 115/43 O2 Sat by Pulse 94 88 Oximetry 11/12/21 11/12/21 11/12/21 06:00 06:15 06:30 Temperature Pulse Rate 85 85 84 Pulse Rate [ From Monitor] Respiratory 25 H 25 H 25 H Rate Blood Pressure 112/41 108/42 109/40 O2 Sat by Pulse 98 99 99 Oximetry 01/26/22 01/26/22 01/26/22 06:45 07:00 07:15 Temperature Pulse Rate 83 86 85 Pulse Rate [ From Monitor] Respiratory 25 H 26 H 25 H Rate Blood Pressure 106/38 103/35 108/38 O2 Sat by Pulse 99 94 95 Oximetry 11/12/21 11/12/21 11/12/21 08:00 08:10 12:00 Temperature 99.5 F 98.4 F Pulse Rate 85 Pulse Rate [ From Monitor] Respiratory Rate Blood Pressure 120/48 O2 Sat by Pulse 98 Oximetry 11/12/21 12:10 Temperature Pulse Rate 77 Pulse Rate [ From Monitor] Respiratory Rate Blood Pressure 120/48 O2 Sat by Pulse 100 Oximetry - General Apperance Constitutional: uncomfortable - EENT EENT: PERRL, mucous membranes moist - Respiratory Respiratory: lungs clear, rhonchi - Cardiovascular Cardiovascular: regular rate, normal S1, normal S2 Extremities: no peripheral edema bilat, no clubbing, cyanosis - Gastrointestinal Gastrointestinal: normoactive bowel sounds - Integumentary Integumentary: decubitus ulcer - Neurologic Cranial nerve examination: PERRL, EOMI Speech examination: other (intubated off sedation seem to respond to command today ) Detailed motor examination: other (possible left uuper less movment no clear facial asymmetry , wiggl both feet ) - Laboratory Findings CBC and BMP: 11/11/21 04:28 11/11/21 04:28 Abnormal Lab Findings: Abnormal Labs 11/03/21 11/03/21 11/03/21 22:32 22:32 22:32 WBC 29.3 H RBC 2.93 L Hgb 6.1 L Hct 21.9 L MCV 75 L MCH 21 L MCHC 28 L RDW 19.7 H Plt Count Seg Neuts % (Manual) 97.0 H Lymphocytes % (Manual) 3.0 L Seg Neutrophils # Man 28.4 H Lymphocytes # (Manual) 0.9 L Monocytes # (Manual) PT 18.6 H INR 1.40 H D-Dimer ABG pH ABG pO2 ABG HCO3 ABG O2 Saturation ABG Base Excess ABG Hemoglobin Oxyhemoglobin Sodium Potassium Chloride Carbon Dioxide 20 L BUN 33 H Glucose 119 H POC Glucose Lactic Acid Calcium 8.3 L AST ALT Alkaline Phosphatase Lactate Dehydrogenase Troponin T 0.035 H C-Reactive Protein NT-Pro-B Natriuret Pep Total Protein Albumin LDL Cholesterol Direct 34 L Vitamin B12 Crossmatch 11/03/21 11/03/21 11/03/21 22:32 22:32 23:57 WBC RBC Hgb Hct MCV MCH MCHC RDW Plt Count Seg Neuts % (Manual) Lymphocytes % (Manual) Seg Neutrophils # Man Lymphocytes # (Manual) Monocytes # (Manual) PT INR D-Dimer ABG pH ABG pO2 ABG HCO3 ABG O2 Saturation ABG Base Excess ABG Hemoglobin Oxyhemoglobin Sodium Potassium Chloride Carbon Dioxide BUN Glucose POC Glucose Lactic Acid 3.70 H* Calcium AST ALT Alkaline Phosphatase 139 H Lactate Dehydrogenase Troponin T C-Reactive Protein NT-Pro-B Natriuret Pep 7895 H Total Protein Albumin 3.5 L LDL Cholesterol Direct Vitamin B12 Crossmatch See Detail 11/04/21 11/04/21 11/05/21 00:59 13:58 00:51 WBC 27.9 H RBC 3.28 L Hgb 7.3 L Hct 25.5 L MCV 78 L MCH 22 L MCHC 29 L RDW 19.1 H Plt Count Seg Neuts % (Manual) 96.0 H Lymphocytes % (Manual) 2.0 L Seg Neutrophils # Man 26.8 H Lymphocytes # (Manual) 0.6 L Monocytes # (Manual) PT INR D-Dimer ABG pH ABG pO2 ABG HCO3 ABG O2 Saturation ABG Base Excess ABG Hemoglobin Oxyhemoglobin Sodium Potassium Chloride Carbon Dioxide BUN Glucose POC Glucose Lactic Acid Calcium AST ALT Alkaline Phosphatase Lactate Dehydrogenase Troponin T 0.051 H D 0.032 H D C-Reactive Protein NT-Pro-B Natriuret Pep Total Protein Albumin LDL Cholesterol Direct Vitamin B12 Crossmatch 11/05/21 11/05/21 11/05/21 06:11 06:11 06:11 WBC 31.8 H RBC 3.57 L Hgb 8.0 L Hct 27.7 L MCV 78 L MCH 22 L MCHC 29 L RDW 19.2 H Plt Count Seg Neuts % (Manual) 91.0 H Lymphocytes % (Manual) 4.5 L Seg Neutrophils # Man 28.9 H Lymphocytes # (Manual) Monocytes # (Manual) 1.1 H PT INR D-Dimer 1494.53 H ABG pH ABG pO2 ABG HCO3 ABG O2 Saturation ABG Base Excess ABG Hemoglobin Oxyhemoglobin Sodium Potassium Chloride Carbon Dioxide 19 L BUN 42 H Glucose 115 H POC Glucose Lactic Acid Calcium AST 43 H ALT Alkaline Phosphatase Lactate Dehydrogenase 187 H Troponin T C-Reactive Protein 22.20 H NT-Pro-B Natriuret Pep Total Protein 6.0 L Albumin 3.2 L LDL Cholesterol Direct Vitamin B12 Crossmatch 11/05/21 11/05/21 11/06/21 06:11 12:15 00:30 WBC RBC Hgb Hct MCV MCH MCHC RDW Plt Count Seg Neuts % (Manual) Lymphocytes % (Manual) Seg Neutrophils # Man Lymphocytes # (Manual) Monocytes # (Manual) PT INR D-Dimer ABG pH ABG pO2 ABG HCO3 ABG O2 Saturation ABG Base Excess ABG Hemoglobin Oxyhemoglobin Sodium Potassium Chloride Carbon Dioxide BUN Glucose POC Glucose 113 H 69 L Lactic Acid Calcium AST ALT Alkaline Phosphatase Lactate Dehydrogenase Troponin T 0.033 H C-Reactive Protein NT-Pro-B Natriuret Pep Total Protein Albumin LDL Cholesterol Direct Vitamin B12 Crossmatch 11/06/21 11/06/21 11/06/21 05:50 15:50 15:50 WBC 25.5 H RBC 3.62 L Hgb 8.0 L Hct 27.5 L MCV 76 L MCH 22 L MCHC 29 L RDW 19.6 H Plt Count Seg Neuts % (Manual) 92.0 H Lymphocytes % (Manual) 5.0 L Seg Neutrophils # Man 23.5 H Lymphocytes # (Manual) Monocytes # (Manual) PT INR D-Dimer ABG pH 7.305 L ABG pO2 ABG HCO3 15.8 L ABG O2 Saturation ABG Base Excess -9.6 L ABG Hemoglobin 8.6 L Oxyhemoglobin 94.6 L Sodium Potassium Chloride 113.9 H Carbon Dioxide 17 L BUN 56 H Glucose 114 H POC Glucose Lactic Acid Calcium 7.9 L AST 1410 H ALT 934 H Alkaline Phosphatase 142 H Lactate Dehydrogenase Troponin T C-Reactive Protein NT-Pro-B Natriuret Pep Total Protein 5.0 L Albumin 2.6 L LDL Cholesterol Direct Vitamin B12 Crossmatch 11/07/21 11/07/21 11/07/21 03:30 04:50 08:07 WBC RBC Hgb Hct MCV MCH MCHC RDW Plt Count Seg Neuts % (Manual) Lymphocytes % (Manual) Seg Neutrophils # Man Lymphocytes # (Manual) Monocytes # (Manual) PT INR D-Dimer ABG pH ABG pO2 296.9 H ABG HCO3 18.1 L ABG O2 Saturation 99.5 H ABG Base Excess -5.9 L ABG Hemoglobin 7.6 L Oxyhemoglobin Sodium Potassium Chloride Carbon Dioxide BUN Glucose POC Glucose 106 H 108 H Lactic Acid Calcium AST ALT Alkaline Phosphatase Lactate Dehydrogenase Troponin T C-Reactive Protein NT-Pro-B Natriuret Pep Total Protein Albumin LDL Cholesterol Direct Vitamin B12 Crossmatch 11/08/21 11/08/21 11/08/21 03:10 18:05 23:43 WBC RBC Hgb Hct MCV MCH MCHC RDW Plt Count Seg Neuts % (Manual) Lymphocytes % (Manual) Seg Neutrophils # Man Lymphocytes # (Manual) Monocytes # (Manual) PT INR D-Dimer ABG pH ABG pO2 127.4 H ABG HCO3 ABG O2 Saturation ABG Base Excess -3.4 L ABG Hemoglobin 7.4 L Oxyhemoglobin Sodium Potassium Chloride Carbon Dioxide BUN Glucose POC Glucose 113 H 141 H Lactic Acid Calcium AST ALT Alkaline Phosphatase Lactate Dehydrogenase Troponin T C-Reactive Protein NT-Pro-B Natriuret Pep Total Protein Albumin LDL Cholesterol Direct Vitamin B12 Crossmatch 11/08/21 11/08/21 11/09/21 Unknown Unknown 02:00 WBC 14.5 H RBC 3.35 L Hgb 7.5 L 8.1 L Hct 25.4 L 27.6 L MCV 76 L 76 L MCH 23 L 22 L MCHC RDW 19.9 H 19.9 H Plt Count Seg Neuts % (Manual) Lymphocytes % (Manual) Seg Neutrophils # Man Lymphocytes # (Manual) Monocytes # (Manual) PT INR D-Dimer ABG pH ABG pO2 ABG HCO3 ABG O2 Saturation ABG Base Excess ABG Hemoglobin Oxyhemoglobin Sodium 154 H D Potassium 3.3 L Chloride 120.7 H Carbon Dioxide 20 L BUN 38 H Glucose POC Glucose Lactic Acid Calcium 8.3 L AST ALT Alkaline Phosphatase Lactate Dehydrogenase Troponin T C-Reactive Protein NT-Pro-B Natriuret Pep Total Protein Albumin LDL Cholesterol Direct Vitamin B12 Crossmatch 11/09/21 11/09/21 11/09/21 02:00 02:31 05:12 WBC RBC Hgb Hct MCV MCH MCHC RDW Plt Count Seg Neuts % (Manual) Lymphocytes % (Manual) Seg Neutrophils # Man Lymphocytes # (Manual) Monocytes # (Manual) PT INR D-Dimer ABG pH 7.479 H ABG pO2 121.3 H ABG HCO3 ABG O2 Saturation ABG Base Excess ABG Hemoglobin 7.3 L Oxyhemoglobin Sodium Potassium Chloride 112.5 H Carbon Dioxide BUN 33 H Glucose 161 H POC Glucose 135 H Lactic Acid Calcium AST 251 H ALT 481 H Alkaline Phosphatase Lactate Dehydrogenase Troponin T C-Reactive Protein NT-Pro-B Natriuret Pep Total Protein 5.0 L Albumin 2.8 L LDL Cholesterol Direct Vitamin B12 Crossmatch 11/09/21 11/09/21 11/09/21 11:33 16:32 23:28 WBC RBC Hgb Hct MCV MCH MCHC RDW Plt Count Seg Neuts % (Manual) Lymphocytes % (Manual) Seg Neutrophils # Man Lymphocytes # (Manual) Monocytes # (Manual) PT INR D-Dimer ABG pH ABG pO2 ABG HCO3 ABG O2 Saturation ABG Base Excess ABG Hemoglobin Oxyhemoglobin Sodium Potassium Chloride Carbon Dioxide BUN Glucose POC Glucose 132 H 133 H 143 H Lactic Acid Calcium AST ALT Alkaline Phosphatase Lactate Dehydrogenase Troponin T C-Reactive Protein NT-Pro-B Natriuret Pep Total Protein Albumin LDL Cholesterol Direct Vitamin B12 Crossmatch 11/10/21 11/10/21 11/10/21 04:00 04:00 05:35 WBC 16.0 H RBC 3.61 L Hgb 8.0 L Hct 27.1 L MCV 75 L MCH 22 L MCHC RDW 20.4 H Plt Count Seg Neuts % (Manual) Lymphocytes % (Manual) Seg Neutrophils # Man Lymphocytes # (Manual) Monocytes # (Manual) PT INR D-Dimer ABG pH ABG pO2 ABG HCO3 ABG O2 Saturation ABG Base Excess ABG Hemoglobin Oxyhemoglobin Sodium 149 H Potassium Chloride 114.1 H Carbon Dioxide BUN 31 H Glucose 148 H POC Glucose 132 H Lactic Acid Calcium 8.2 L AST ALT Alkaline Phosphatase Lactate Dehydrogenase Troponin T C-Reactive Protein NT-Pro-B Natriuret Pep Total Protein Albumin LDL Cholesterol Direct Vitamin B12 Crossmatch 11/10/21 11/10/21 11/10/21 11:31 14:08 15:35 WBC RBC Hgb Hct MCV MCH MCHC RDW Plt Count Seg Neuts % (Manual) Lymphocytes % (Manual) Seg Neutrophils # Man Lymphocytes # (Manual) Monocytes # (Manual) PT INR D-Dimer ABG pH ABG pO2 126.6 H ABG HCO3 ABG O2 Saturation ABG Base Excess ABG Hemoglobin 7.4 L Oxyhemoglobin Sodium Potassium Chloride Carbon Dioxide BUN Glucose POC Glucose 147 H Lactic Acid Calcium AST ALT Alkaline Phosphatase Lactate Dehydrogenase Troponin T C-Reactive Protein NT-Pro-B Natriuret Pep Total Protein Albumin LDL Cholesterol Direct Vitamin B12 1823 H Crossmatch 11/10/21 11/11/21 11/11/21 17:53 00:55 04:28 WBC RBC Hgb Hct MCV MCH MCHC RDW Plt Count Seg Neuts % (Manual) Lymphocytes % (Manual) Seg Neutrophils # Man Lymphocytes # (Manual) Monocytes # (Manual) PT INR D-Dimer ABG pH ABG pO2 ABG HCO3 ABG O2 Saturation ABG Base Excess ABG Hemoglobin Oxyhemoglobin Sodium 149 H Potassium Chloride 112.2 H Carbon Dioxide BUN 34 H Glucose 148 H POC Glucose 140 H 145 H Lactic Acid Calcium 7.9 L AST 53 H ALT 203 H Alkaline Phosphatase Lactate Dehydrogenase Troponin T C-Reactive Protein NT-Pro-B Natriuret Pep Total Protein 4.9 L Albumin 2.6 L LDL Cholesterol Direct Vitamin B12 Crossmatch 11/11/21 11/11/21 11/11/21 04:28 04:28 05:28 WBC 20.9 H RBC 3.47 L Hgb 7.5 L Hct 26.0 L MCV 75 L MCH 22 L MCHC 29 L RDW 21.6 H Plt Count 132 L Seg Neuts % (Manual) Lymphocytes % (Manual) Seg Neutrophils # Man Lymphocytes # (Manual) Monocytes # (Manual) PT INR D-Dimer 2655.00 H ABG pH ABG pO2 ABG HCO3 ABG O2 Saturation ABG Base Excess ABG Hemoglobin Oxyhemoglobin Sodium Potassium Chloride Carbon Dioxide BUN Glucose POC Glucose 154 H Lactic Acid Calcium AST ALT Alkaline Phosphatase Lactate Dehydrogenase Troponin T C-Reactive Protein NT-Pro-B Natriuret Pep Total Protein Albumin LDL Cholesterol Direct Vitamin B12 Crossmatch 11/11/21 11/11/21 11/12/21 12:38 18:13 00:14 WBC RBC Hgb Hct MCV MCH MCHC RDW Plt Count Seg Neuts % (Manual) Lymphocytes % (Manual) Seg Neutrophils # Man Lymphocytes # (Manual) Monocytes # (Manual) PT INR D-Dimer ABG pH ABG pO2 ABG HCO3 ABG O2 Saturation ABG Base Excess ABG Hemoglobin Oxyhemoglobin Sodium Potassium Chloride Carbon Dioxide BUN Glucose POC Glucose 137 H 108 H 137 H Lactic Acid Calcium AST ALT Alkaline Phosphatase Lactate Dehydrogenase Troponin T C-Reactive Protein NT-Pro-B Natriuret Pep Total Protein Albumin LDL Cholesterol Direct Vitamin B12 Crossmatch 11/12/21 11/12/21 11/12/21 05:40 06:24 11:12 WBC RBC Hgb Hct MCV MCH MCHC RDW Plt Count Seg Neuts % (Manual) Lymphocytes % (Manual) Seg Neutrophils # Man Lymphocytes # (Manual) Monocytes # (Manual) PT INR D-Dimer ABG pH 7.586 H ABG pO2 150.6 H ABG HCO3 27.2 H ABG O2 Saturation 99.1 H ABG Base Excess 5.2 H ABG Hemoglobin 7.5 L Oxyhemoglobin Sodium Potassium Chloride Carbon Dioxide BUN Glucose POC Glucose 132 H 140 H Lactic Acid Calcium AST ALT Alkaline Phosphatase Lactate Dehydrogenase Troponin T C-Reactive Protein NT-Pro-B Natriuret Pep Total Protein Albumin LDL Cholesterol Direct Vitamin B12 Crossmatch
[2021-11-12] MEDS ORDERED: VANCOMYCIN PHARMACY TO DOSE IV SCH (14:00)
--- NOTE | 2021-11-12 14:25 | Operative Report ---
DATE OF SURGERY: 11/11/2021 PULMONARY PROCEDURE NOTE PROCEDURE: Fiberoptic bronchoscopy with suction of secretions. INDICATIONS: Left lung atelectasis. CONSENT: Informed and witnessed obtained from the patient's and witnessed by the nurse over the phone. COMPLICATIONS: The patient developed a pneumothorax post-procedure; however, this was after she also had an ET tube exchange over a bougie, so it is really if anything is more likely that the pneumothorax may have been related to the bougie exchange, otherwise no immediate procedural complications. DESCRIPTION OF PROCEDURE: After informed and witnessed consent as well as premedication, which included 50 mcg of IV fentanyl twice for a total of 100 mcg as well as topical 1% lidocaine, 5 mL applied at the pascale. The fiberoptic bronchoscope was passed through the Bodai valve and advanced into the distal trachea. From the level of the pascale, I really did not see any significant secretions blocking the left mainstem, which was the presumption. I did enter the left main stem bronchus after anesthesia at pascale and suctioned mild looking secretions really that included some at the entrance to the lingula and some in the entrance of the basilar segments; however, no large mucus plug. I then directed the fiberoptic bronchoscope to the right mainstem bronchus, where I did encounter much more secretions then on the left. This was suctioned out as best as I could with the fiberoptic bronchoscope and lavaged. I did not see any gross endobronchial lesions. Fiberoptic bronchoscope was then withdrawn through the Bodai valve. The patient tolerated the procedure well at that point. TID: [id number] RECEIPT: [id number] MIKE/JOSR/RYAN
[2021-11-12 15:20] LABS: Mean Corpuscular HGB Conc 29 % (30-34); Mean Corpuscular Volume 75 fl (79-97); Platelet Count 145 K/mm3 (140-440); Red Blood Count 3.27 M/mm3 (3.65-5.03)
[2021-11-12 15:28] LABS: Hematocrit 24.5 % (30.3-42.9); Hemoglobin 7.1 gm/dl (10.1-14.3); Red Cell Distribution Width 22.3 % (13.2-15.2)
[2021-11-12 15:32] LABS: Blood Urea Nitrogen 40 mg/dL (7-17); Calcium 7.4 mg/dL (8.4-10.2); Hemolysis Index 8
[2021-11-12 15:34] LABS: BUN/Creatinine Ratio 67
[2021-11-12] MEDS ORDERED: POTASSIUM PHOSPHATE 40 MMOL in SODIUM CHLORIDE 0.9% 500 ML 500 ML IV ONE (16:44)
[2021-11-12] MEDS ORDERED: MAGNESIUM SULFATE 4 GM/100 ML BAG IV ONE (16:45)
[2021-11-12] MEDS: ALBUTEROL 2.5 MG/3 ML NEBU IH SCH (16:56)
[2021-11-12] MEDS: fentaNYL DRIP Premix 2,000 MCG/100 ML BAG IV SCH (17:05)
[2021-11-12] MEDS: VANCOMYCIN 1,250 MG in SODIUM CHLORIDE 0.9% 250ML 250 ML IV SCH (17:05)
[2021-11-12] MEDS: SODIUM CHLORIDE 0.9% 50 ML IVPB IV PRN ×2 (17:06→17:08)
[2021-11-12] MEDS: CEFEPIME/NS 1 GM/100 ML 1 GM/100 ML BAG IV SCH (17:06)
--- NOTE | 2021-11-12 18:30 | Progress Note ---
<MAYCOLJASBIR H. - Last Filed: 11/12/21 18:33> Assessment and Plan Assessment and plan: This is a 81-year-old female with known history of diabetes mellitus, hypertension, PPM, and arthritis admitted for sepsis and acute hypoxia respiratory failure 2/2 bilateral pneumonia requiring intubation and ventilatory support Assessment and Plan Septic shock, POA, bilateral pneumonia, bacteremia -Infectious disease consulted, appreciate recommendations -COVID-19 PCR negative -Presented with fevers, leukocytosis and hypotension -11/04 blood cultures positive with a group B strep bacteremia however repeat blood cultures on the with no growth to date -Echo showed no evidence of vegetation -ABX therapy with ceftriaxone and clindamycin -Completed clindamycin, 2 weeks of ceftriaxone planned (11/04) -Given persistent leukocytosis and fever, escalated to cefepime -Monitor WBC and fever curve -Recultured on 11/11 -Follow-up culture -Bedside bronchoscopy for mucous plug on CXR 11/11 Acute hypoxic respiratory failure secondary to bilateral pneumonia, bilateral pleural effusion. Right pneomothorax -COVID-19 PCR negative -Intubated on 11/06 with 6.00 ETT at 18 at the lip -A.m. vent settings: Assist-control rate 16, tidal volume 350, PEEP 6, FiO2 40% -See RT notes for titration -11/11: Changed over bougie to 7.50 ETT at 22 at the lip -Current vent settings AC, rate 25, tidal and 400, FiO2 100%, PEEP 6 -S/p bedside bronchoscopy on 11/11 -Post bronc noted to have transient hypotension-> given LR bolus, Levophed drip -Complicated by pneumothorax -S/p chest tube placement for right pneumothorax -Chest tube to wall suction -[address] drainage 450 ml -ABG/CXR per CCM -VAP bundle -Right chest wall ultrasound shows pleural effusion -SPO2 monitoring -Mucomyst every 8 -Albuterol every 8 Acute DVT in the right external iliac vein, common femoral vein, superior aspect of femoral vein -Evidenced on bilateral upper lower extremity ultrasound -Therapeutic Lovenox Hypokalemia, hypomagnesemia, hypophosphatemia -Repleted with K-Phos and magnesium -Trend BMP Heart failure with reduced EF, h/o chronic heart block s/p PPM -S/p vasopressor support -11/04 echocardiogram shows EF 30 to 35% -Cardiology consulted, appreciate recommendations -Continue beta-charleen -Not on aspirin due to allergy -Statins on hold due to elevated LFTs -Blood pressure monitor per protocol Acute encephalopathy -Neurology consulted, appreciate recommendations -CT brain showed no acute events -EEG pending -MRI brain and possible-> patient has metal in her body -Repeat CT head pending -Avoid delirium -Reorientation as needed -TSH/B12/ammonia level pending Acute microcytic anemia -S/p 1 unit PRBC -Trend CBC -Transfuse for hemoglobin less than 7 Transaminitis -Nutrition consult for tube feeding -BR: Senokot -KUB ordered yesterday was discontinued by tech. Will not reorder due to glass recorded BM 11/12 -24-hour -2899 ml -Trend LFTs h/o HTN/CAD s/p PCI (2004) -Statin on hold due to transaminitis -Hold home antihypertensive and resume as tolerated -Blood pressure monitoring per protocol h/o DM -SSI -Accu-Cheks every 6 -Avoid hypoglycemia h/o hypothyroidism -Continue home Synthroid DVT/GI prophylaxis -Therapeutic Lovenox, PPI The high probability of a clinically significant, sudden or life threatening deterioration of the [multi] system(s) required my full and direct attention, intervention and personal management. The aggregate critical care time was [60] minutes. This time is in addition to time spent performing reported procedures but includes the following: [x] Data Review and interpretation [x] Patient assessment and monitoring of vital signs [x] Documentation [x] Medication orders and management Disposition Plan: icu Total Time Spent with Patient (Minutes): 60 History Interval history: This is an 82-year-old female with DM, HTN , PPM and arthritis who presented to the emergency department on 11/04 for shortness of breath ongoing for the past 3 days, cough and according to family a fever of 102.2. Upon arrival of EMS patient was found to be tachypneic and hypoxic with SPO2 of 76% on room air which later improved to 88% on nonrebreather. Work-up in the emergency department included a CXR which showed bilateral interstitial pulmonary edema with bilateral pleural effusions and bibasilar opacities, leukocytosis and anemia with a hemoglobin of 6.1. Patient was admitted to the hospitalist service with acute anemia, acute hypoxic respiratory failure, bilateral pneumonia and COVID-19 PUI with consults to pulmonology, infectious disease and later cardiology. Patient was eventually intubated in the emergency department on 11/06. Hospital Course to date: 11/04/2021: Empiric therapy with iv levaquin/vancomycin. COVID PCR pending. Will consult ID. PCCM consulted, will follow recs. Hypotensive this AM, ordered bolus and fluids at 150 cc/hr. May require pressor support if bp does not improve. 11/05/2021: GBS on bcx +, currently on rocephin IV. Currently on bipap due to respiratory distress overnight. Worsening BL opacities on CXR. May be volume overload vs pneumonia. Unfortunately bp too low for lasix at this point. WIll continue levophed and bipap. Once able to tolerate, may do trial of albumin/lasix. Call attempt made to Niraj, no response. Will try again tomorrow to update. 11/06/2021: Decompensated overnight requiring intubation. CXR shows worsening interstitial infiltrates. Currenlty on dopamine, levophed, vasopressin. PICC li ne ordered. Advised RN to place gamble for I/O monitoring. Would benefit from diuresis but very volume overloaded. Prognosis guarded 11/08: Off sedation this am, remains unresponsive only grimace to pain. Hold all sedatives agents for now, patient is off pressors this am. Hypernatremia from today's lab- D5W X1bag, and low K repleted, repeat lab in the am. Severe constipation also noted from KUB, BR added. 11/09: Sudden SPO2 drop in the 60s this am. Patient was manually bagged and deep suctioned. Patient is currently stable on the vent, repeat CXR with no significant change. D/w CCM Mucomyst and brochodilator added. Patient mentation is unchanged, continue to hold off on sedative agents. Neurology consulted. 11/10: Acute DVT noted on bilateral lower extremity Doppler ultrasound therefore she was started on Lovenox treatment dose. Failed SBT. Hypernatremia and hyperchloremia noted, free water flush adjusted. 11/11: Patient noted to be febrile with increasing of the cytosis, UA/BC sent and CXR ordered. ID escalated antibiotics to cefepime. CXR demonstrated mucous plug, bedside bronchoscopy was performed and O ETT was changed over sonal from 6 cm to 7.5. Patient was noted to have a pneumothorax postprocedure and chest tube was placed. Family updated by CCM. Free water flush increased and will add Jaswant supplementation. 11/12: Patient not noted to follow commands, hypernatremia worsen/persist, increasing free water flush, potassium and magnesium and phosphorus repleted. H emoglobin noted to be 7.1/24.5 from 7.03/12 yesterday. We will continue to trend and monitor. Vent changes per CCM. Repeat CXR showed no residual pneumothorax. Consider waterseal tomorrow. Given persistent leukocytosis antibiotics escalated to cefepime per ID. Hospitalist Physical - Physical exam Narrative exam: General appearance: Present: no acute distress, other (On the vent) - EENT Eyes: Present: PERRL, EOM intact ENT: poor dentition - Neck Neck: Present: normal ROM - Respiratory Respiratory effort: normal Respiratory: bilateral: diminished - Cardiovascular Rhythm: regular Heart Sounds: Present: S1 & S2. Absent: systolic murmur, diastolic murmur - Extremities Extremities: no ischemia, pulses intact, pulses symmetrical, normal temperature, normal color Peripheral Pulses: within normal limits - Abdominal General gastrointestinal: soft, non-tender, non-distended, normal bowel sounds - Integumentary Integumentary: Present: warm, dry - Psychiatric Psychiatric: cooperative - Neurologic Neurologic: CNII-XII intact - Allied Health Allied health notes reviewed: nursing, RT, social work - Constitutional Vitals: Temp Pulse Resp BP Pulse Ox 98.4 F 82 22 104/50 97 11/12/21 12:00 11/12/21 17:30 11/12/21 17:30 11/12/21 17:30 11/12/21 17:15 General appearance: Present: no acute distress, other (On the vent) HEART Score - HEART Score Troponin: Troponin T 0.033 ng/mL (0.00-0.029) H 11/05/21 06:11 Results - Labs CBC & Chem 7: 11/12/21 14:50 11/12/21 14:50 Labs: Laboratory Last Values WBC 19.8 K/mm3 (4.5-11.0) H 11/12/21 14:50 RBC 3.27 M/mm3 (3.65-5.03) L 11/12/21 14:50 Hgb 7.1 gm/dl (10.1-14.3) L 11/12/21 14:50 Hct 24.5 % (30.3-42.9) L 11/12/21 14:50 MCV 75 fl (79-97) L 11/12/21 14:50 MCH 22 pg (28-32) L 11/12/21 14:50 MCHC 29 % (30-34) L 11/12/21 14:50 RDW 22.3 % (13.2-15.2) H 11/12/21 14:50 Plt Count 145 K/mm3 (140-440) 11/12/21 14:50 Add Manual Diff Complete 11/06/21 15:50 Total Counted 100 11/06/21 15:50 Seg Neutrophils % Bottle Hop 11/06/21 15:50 Seg Neuts % (Manual) 92.0 % (40.0-70.0) H 11/06/21 15:50 Band Neutrophils % 0 % 11/06/21 15:50 Lymphocytes % (Manual) 5.0 % (13.4-35.0) L 11/06/21 15:50 Reactive Lymphs % (Man) 0 % 11/06/21 15:50 Monocytes % (Manual) 3.0 % (0.0-7.3) 11/06/21 15:50 Eosinophils % (Manual) 0 % (0.0-4.3) 11/06/21 15:50 Basophils % (Manual) 0 % (0.0-1.8) 11/06/21 15:50 Metamyelocytes % 0 % 11/06/21 15:50 Myelocytes % 0 % 11/06/21 15:50 Promyelocytes % 0 % 11/06/21 15:50 Blast Cells % 0 % 11/06/21 15:50 Nucleated RBC % Not Reportable 11/06/21 15:50 Seg Neutrophils # Man 23.5 K/mm3 (1.8-7.7) H 11/06/21 15:50 Band Neutrophils # 0.0 K/mm3 11/06/21 15:50 Lymphocytes # (Manual) 1.3 K/mm3 (1.2-5.4) 11/06/21 15:50 Abs React Lymphs (Man) 0.0 K/mm3 11/06/21 15:50 Monocytes # (Manual) 0.8 K/mm3 (0.0-0.8) 11/06/21 15:50 Eosinophils # (Manual) 0.0 K/mm3 (0.0-0.4) 11/06/21 15:50 Basophils # (Manual) 0.0 K/mm3 (0.0-0.1) 11/06/21 15:50 Metamyelocytes # 0.0 K/mm3 11/06/21 15:50 Myelocytes # 0.0 K/mm3 11/06/21 15:50 Promyelocytes # 0.0 K/mm3 11/06/21 15:50 Blast Cells # 0.0 K/mm3 11/06/21 15:50 WBC Morphology Not Reportable 11/06/21 15:50 Hypersegmented Neuts Not Reportable 11/06/21 15:50 Hyposegmented Neuts Not Reportable 11/06/21 15:50 Hypogranular Neuts Not Reportable 11/06/21 15:50 Smudge Cells Not Reportable 11/06/21 15:50 Toxic Granulation Not Reportable 11/06/21 15:50 Toxic Vacuolation Not Reportable 11/06/21 15:50 Dohle Bodies Not Reportable 11/06/21 15:50 Pelger-Huet Anomaly Not Reportable 11/06/21 15:50 Irina Rods Not Reportable 11/06/21 15:50 Platelet Estimate Consistent w auto 11/06/21 15:50 Clumped Platelets Not Reportable 11/06/21 15:50 Plt Clumps, EDTA Not Reportable 11/06/21 15:50 Large Platelets Not Reportable 11/06/21 15:50 Giant Platelets Not Reportable 11/06/21 15:50 Platelet Satelliting Not Reportable 11/06/21 15:50 Plt Morphology Comment Not Reportable 11/06/21 15:50 RBC Morphology Not Reportable 11/06/21 15:50 Dimorphic RBCs Not Reportable 11/06/21 15:50 Polychromasia Not Reportable 11/06/21 15:50 Hypochromasia 2+ 11/06/21 15:50 Poikilocytosis Not Reportable 11/06/21 15:50 Anisocytosis 1+ 11/06/21 15:50 Microcytosis Not Reportable 11/06/21 15:50 Macrocytosis Not Reportable 11/06/21 15:50 Spherocytes Not Reportable 11/06/21 15:50 Pappenheimer Bodies Not Reportable 11/06/21 15:50 Sickle Cells Not Reportable 11/06/21 15:50 Target Cells Not Reportable 11/06/21 15:50 Tear Drop Cells Not Reportable 11/06/21 15:50 Ovalocytes Not Reportable 11/06/21 15:50 Helmet Cells Not Reportable 11/06/21 15:[address] [place] Bodies Not Reportable 11/06/21 15:50 Henriette Rings Not Reportable 11/06/21 15:50 Malcom Cells Not Reportable 11/06/21 15:50 Bite Cells Not Reportable 11/06/21 15:50 Crenated Cell Not Reportable 11/06/21 15:50 Elliptocytes Not Reportable 11/06/21 15:50 Acanthocytes (Spur) Not Reportable 11/06/21 15:50 Rouleaux Not Reportable 11/06/21 15:50 Hemoglobin C Crystals Not Reportable 11/06/21 15:50 Schistocytes Not Reportable 11/06/21 15:50 Malaria parasites Not Reportable 11/06/21 15:50 Godfrey Bodies Not Reportable 11/06/21 15:50 Hem Pathologist Commnt No 11/06/21 15:50 PT 18.6 Sec. (12.2-14.9) H 11/03/21 22:32 INR 1.40 (0.87-1.13) H 11/03/21 22:32 APTT 28.9 Sec. (24.2-36.6) 11/03/21 22:32 D-Dimer 2655.00 ng/mlDDU (0-234) H 11/11/21 04:28 ABG pH 7.586 pH Units (7.350-7.450) H 11/12/21 05:40 ABG pCO2 29.2 mm Hg 11/12/21 05:40 ABG pO2 150.6 mm Hg (80.0-90.0) H 11/12/21 05:40 ABG HCO3 27.2 mmol/L (20.0-26.0) H 11/12/21 05:40 ABG O2 Saturation 99.1 % (95.0-99.0) H 11/12/21 05:40 ABG O2 Content 10.6 (0.0-44) 11/12/21 05:40 ABG Base Excess 5.2 mmol/L (-2.0-3.0) H 11/12/21 05:40 ABG Hemoglobin 7.5 gm/dl (12.0-16.0) L 11/12/21 05:40 ABG Carboxyhemoglobin 1.7 % (0.0-5.0) 11/12/21 05:40 ABG Methemoglobin 0.5 % (0.0-1.5) 11/12/21 05:40 Oxyhemoglobin 96.9 % (95.0-99.0) 11/12/21 05:40 FiO2 50 % 11/12/21 05:40 Sodium 150 mmol/L (137-145) H 11/12/21 14:50 Potassium 3.3 mmol/L (3.6-5.0) L 11/12/21 14:50 Chloride 112.0 mmol/L (98-107) H 11/12/21 14:50 Carbon Dioxide 25 mmol/L (22-30) 11/12/21 14:50 Anion Gap 16 mmol/L 11/12/21 14:50 BUN 40 mg/dL (7-17) H 11/12/21 14:50 Creatinine 0.6 mg/dL (0.6-1.2) 11/12/21 14:50 Estimated GFR > 60 ml/min 11/12/21 14:50 BUN/Creatinine Ratio 67 % 11/12/21 14:50 Glucose 151 mg/dL (65-100) H 11/12/21 14:50 POC Glucose 121 mg/dL (70-105) H 11/12/21 17:13 Lactic Acid 3.70 mmol/L (0.7-2.0) H* 11/03/21 22:32 Calcium 7.4 mg/dL (8.4-10.2) L 11/12/21 14:50 Phosphorus 1.70 mg/dL (2.5-4.5) L 11/12/21 14:50 Magnesium 1.40 mg/dL (1.7-2.3) L 11/12/21 14:50 Ferritin 52.6 ng/mL (10.0-200.0) 11/05/21 06:11 Total Bilirubin 0.30 mg/dL (0.1-1.2) 11/11/21 04:28 Direct Bilirubin < 0.2 mg/dL (0-0.2) 11/11/21 04:28 Indirect Bilirubin 0.1 mg/dL 11/11/21 04:28 AST 53 units/L (5-40) H 11/11/21 04:28 ALT 203 units/L (7-56) H 11/11/21 04:28 Alkaline Phosphatase 124 units/L (35-129) 11/11/21 04:28 Ammonia 42.0 umol/L (25-60) 11/10/21 14:08 Lactate Dehydrogenase 187 units/L (91-180) H 11/05/21 06:11 Troponin T 0.033 ng/mL (0.00-0.029) H 11/05/21 06:11 C-Reactive Protein 22.20 mg/dL (0.00-1.30) H 11/05/21 06:11 NT-Pro-B Natriuret Pep 7895 pg/mL (0-900) H 11/03/21 22:32 Total Protein 4.9 g/dL (6.3-8.2) L 11/11/21 04:28 Albumin 2.6 g/dL (3.9-5) L 11/11/21 04:28 Albumin/Globulin Ratio 1.1 % 11/11/21 04:28 Triglycerides 66 mg/dL (2-149) 11/03/21 22:32 Cholesterol 80 mg/dL (50-199) 11/03/21 22:32 LDL Cholesterol Direct 34 mg/dL (50-130) L 11/03/21 22:32 HDL Cholesterol 42 mg/dL (40-59) 11/03/21 22:32 Cholesterol/HDL Ratio 1.90 % 11/03/21 22:32 Vitamin B12 1823 pg/mL (211-911) H 11/10/21 14:08 TSH 1.510 mlU/mL (0.270-4.200) 11/10/21 14:08 Urine Color Yellow (Yellow) 11/11/21 09:00 Urine Turbidity Slightly-cloudy (Clear) 11/11/21 09:00 Urine pH 5.0 (5.0-7.0) 11/11/21 09:00 Ur Specific [place] 1.009 (1.003-1.030) 11/11/21 09:00 Urine Protein <15 mg/dl mg/dL (Negative) 11/11/21 09:00 Urine Glucose (UA) Neg mg/dL (Negative) 11/11/21 09:00 Urine Ketones Neg mg/dL (Negative) 11/11/21 09:00 Urine Blood Mod (Negative) 11/11/21 09:00 Urine Nitrite Neg (Negative) 11/11/21 09:00 Urine Bilirubin Neg (Negative) 11/11/21 09:00 Urine Urobilinogen < 2.0 mg/dL (<2.0) 11/11/21 09:00 Ur Leukocyte Esterase Neg (Negative) 11/11/21 09:00 Urine WBC (Auto) < 1.0 /HPF (0.0-6.0) 11/11/21 09:00 Urine RBC (Auto) < 1.0 /HPF (0.0-6.0) 11/11/21 09:00 Coronavirus (PCR) Negative (Negative) 11/10/21 08:30 Blood Type O POSITIVE 11/03/21 23:57 Antibody Screen Negative 11/03/21 23:57 Crossmatch See Detail 11/03/21 23:57 Microbiology: Microbiology 11/11/21 14:22 Peripheral/Venous Blood Culture - Preliminary NO GROWTH AFTER 24 HOURS 11/11/21 14:36 Peripheral/Venous Blood Culture - Preliminary NO GROWTH AFTER 24 HOURS 11/10/21 15:35 Tracheal Aspirate Sputum Culture - Preliminary Gamble/IV: Voiding Method Indwelling Catheter Active Medications - Current Medications Current Medications: Generic Name Dose Route Start Last Admin Trade Name Freq PRN Reason Stop Dose Admin Acetaminophen 650 mg 11/04/21 02:03 11/12/21 05:35 Acetaminophen 325 Mg Tab PO 650 mg Q6H PRN Administration Pain MILD(1-3)/Fever >100.5/ORDRIGUEZ Lipase/Protease/Amylase 1 each 11/08/21 11:09 Lipase 10,500/Protease 25,000/Amylase 43,750 (Units) Cap FEEDTUBE PRN PRN For Clogged Feeding Tube Dextrose 0 ml 11/10/21 10:52 Dextrose 10% *Hypoglycemia IV PRN PRN Hypoglycemia Docusate Sodium 100 mg 11/08/21 12:00 11/12/21 09:40 Docusate Sodium 100 Mg/10 Ml Oral Liqd PO 100 mg BID YOSSI Administration Enoxaparin Sodium 60 mg 11/10/21 22:00 11/12/21 09:39 Enoxaparin 60 Mg/0.6 Ml Inj SUB-Q 60 mg Q12HR YOSSI Administration Protocol Famotidine 10 mg 11/11/21 22:00 11/12/21 09:40 Famotidine 10 Mg Tab FEEDTUBE 10 mg BID YOSSI Administration Fentanyl 50 mcg 11/11/21 16:22 Fentanyl 100 Mcg/2 Ml Inj IV Q10MIN PRN ANALGESIA Furosemide 20 mg 11/08/21 18:00 11/12/21 17:04 Furosemide 20 Mg/2 Ml Inj IV 20 mg 0600,1800 YOSSI Administration Hydrophilic Ointment 1 applic 11/06/21 04:02 Lip Therapy Vaseline TP Q2HR PRN Dry Lips NORepinephrine/NS 8 MG-250 ML 8 mg in 250 mls @ 3.75 mls/hr 11/05/21 09:00 11/11/21 19:30 Norepinephrine/Ns 8 Mg-250 Ml (Double Conc) IV 4 mcg/min TITRATE YOSSI 7.5 mls/hr Titration Protocol 2 MCG/MIN Vasopressin 20 unit/ Sodium 101 mls @ 9.09 mls/hr 11/05/21 23:00 11/06/21 01:00 Chloride IV 0.03 units/min TITR YOSSI 9.09 mls/hr Administration Protocol 0.03 UNITS/MIN Fentanyl Citrate 2,000 mcg in 100 mls @ 3.12 mls/hr 11/11/21 17:00 11/12/21 17:05 Fentanyl Drip Premix IV 2 mcg/kg/hr TITR YOSSI 6.24 mls/hr Administration Protocol 1 MCG/KG/HR Cefepime HCl 1 gm in 100 mls @ 200 mls/hr 11/12/21 16:00 11/12/21 17:06 Cefepime/Ns 1 Gm/100 Ml IV 200 mls/hr Q8H YOSSI Administration Protocol Vancomycin HCl 1,250 mg/ 275 mls @ 166.667 mls/hr 11/12/21 15:00 11/12/21 17:05 Sodium Chloride IV 166.667 mls/hr Q24H YOSSI Administration Potassium Phosphate 40 mmol/ 513.3333 mls @ 83 mls/hr 11/12/21 16:44 Sodium Chloride IV 11/12/21 22:55 ONCE ONE Magnesium Sulfate 4 gm in 100 mls @ 25 mls/hr 11/12/21 16:45 Magnesium Sulfate 4gm/100ml IV 11/12/21 20:44 ONCE ONE Insulin Human Lispro 0 unit 11/06/21 12:00 11/12/21 17:12 Insulin Lispro 100 Unit/Ml SUB-Q Not Given Q6HR [facility] Protocol Levothyroxine Sodium 125 mcg 11/05/21 07:00 11/12/21 05:37 Levothyroxine 125 Mcg Tab PO 125 mcg DAILY@0600 [facility] Administration Magnesium Hydroxide 30 ml 11/04/21 02:03 Magnesium Hydroxide (Mom) Oral Liqd Udc PO Q4H PRN Constipation Metoprolol Tartrate 25 mg 11/11/21 11:00 11/12/21 09:40 Metoprolol Tartrate 25 Mg Tab FEEDTUBE Not Given BID [facility] Multi-Ingred Cream/Lotion/Oil/Oint 1 applic 11/06/21 04:02 Mineral Oil/Petrolatum, White Ophth Oint 3.5 Gm OU Q4HR PRN Dry Eye(s) Ondansetron HCl 4 mg 11/04/21 02:03 11/05/21 15:48 Ondansetron 4 Mg/2 Ml Inj IV 4 mg Q8H PRN Administration Nausea And Vomiting Polyethylene Glycol 17 gm 11/08/21 12:00 11/12/21 09:40 Polyethylene Glycol 3350 17 Gm Powder PO 17 gm QDAY [facility] Administration Senna 17.6 mg 11/08/21 22:00 11/12/21 09:40 Sennosides Oral Liqd 8.8 Mg/5 Ml Oral Liqd PO 17.6 mg Q12HR YOSSI Administration Simple Syrup 15 ml 11/08/21 11:09 Simple Syrup 15 Ml FEEDTUBE PRN PRN Hypoglycemia Simple Syrup 30 ml 11/08/21 11:09 Simple Syrup 15 Ml FEEDTUBE PRN PRN Hypoglycemia Sodium Bicarbonate 325 mg 11/08/21 11:09 Sodium Bicarbonate 325 Mg Tab FEEDTUBE PRN PRN For Clogged Feeding Tube Sodium Chloride 10 ml 11/04/21 10:00 11/11/21 21:20 Sodium Chloride 0.9% 10 Ml Flush Syringe IV Not Given BID YOSSI Sodium Chloride 10 ml 11/04/21 02:03 Sodium Chloride 0.9% 10 Ml Flush Syringe IV PRN PRN LINE FLUSH Sodium Chloride 10 ml 11/10/21 09:57 11/12/21 17:08 Sodium Chloride 0.9% 50 Ml Ivpb IV 10 ml PRN PRN Administration FLUSH Nutrition/Malnutrition Assess - Dietary Evaluation Nutrition/Malnutrition Findings: Nutrition Notes Start: 11/04/21 17:16 Freq: Status: Active Protocol: Document 11/10/21 16:03 ISABELL (Rec: 11/10/21 16:20 ISABELL [id number]) Nutrition Notes Current Diagnosis Diabetes,Sepsis,Hypertension, Respiratory Failure Other Pertinent Diagnosis Severe Sepsis/Bacteremia, Bilateral Pneumonia. Current Diet TF-Vital AF @ 60 ml/hr (since L 11/08). Height 5 ft Weight 58.967 kg [place] Body Weight (kg) 45.45 BMI 25.4 Weight change and time frame No body weight change reported . Weight Status Appropriate Subjective/Other Information RD consult for TF tolerance. TF well tolerated, according to RN notes. Percent of energy/protein needs met: Prescribed Vital AF @ 60 ml/hr provides for energy/protein needs (1,710 Kcal/107 g) during LOS, 100% Kcal; 100% AA . #1 Nutrition Diagnosis Inadequate oral intake Diagnosis Progress(for reassessment Continues documentation) Is patient on ventilator? Yes Is Patient Ambulatory and/or Out of Bed No REE-([facility]-confined to bed) 1166.664 Kcal/Kg value to use for calculation 29 Approximate Energy Requirements Using 1710 kcal/Kg Calculation Used for Recommendations Kcal/kg Additional Notes Protein: 70-118 g/day (1.2-2g/ kg BW/day) Fluids: 1 ml/kcal, or as per MD. Nutrition Intervention Nutrition Support: Continue Vital AF @ 60 ml/hr. Flush: 100 ml water Q 4 hr, or as per MD. Kcal 1,710 Protein (gm) 107 Carbohydrates (gm) 158 Fat (gm) 77 Fluid (mL) 1,156 Fiber (gm) 7 % RDI: 100% Kcal; 100% AA. Goal #1 Provide at least 75% of energy /protein needs through Enteral Feeding during LOS. Goal #2 Maintain body weight within +/ -3% of admission body weight during LOS. Follow-Up By: 11/17/21 Additional Comments Continue monitoring TF tolerance and BM. <FREDERICK DALTON - Last Filed: 11/20/21 12:53> Assessment and Plan Assessment and plan: I saw and evaluated the patient. Discussed with the nurse practitioner and agree with their findings and plan as documented in this note. Hospitalist Physical - Constitutional Vitals: Temp Pulse Resp BP Pulse Ox 97.0 F L 67 15 91/44 95 11/20/21 12:00 11/20/21 11:28 11/20/21 11:27 11/20/21 11:00 11/20/21 11:27 HEART Score - HEART Score Troponin: Troponin T 0.033 ng/mL (0.00-0.029) H 11/05/21 06:11 Results - Labs CBC & Chem 7: 11/20/21 05:40 11/20/21 05:40 Labs: Laboratory Last Values WBC 8.2 K/mm3 (4.5-11.0) 11/20/21 05:40 RBC 3.40 M/mm3 (3.65-5.03) L 11/20/21 05:40 Hgb 9.1 gm/dl (10.1-14.3) L 11/20/21 05:40 Hct 28.8 % (30.3-42.9) L 11/20/21 05:40 MCV 85 fl (79-97) 11/20/21 05:40 MCH 27 pg (28-32) L 11/20/21 05:40 MCHC 31 % (30-34) 11/20/21 05:40 RDW 20.7 % (13.2-15.2) H 11/20/21 05:40 Plt Count 172 K/mm3 (140-440) 11/20/21 05:40 Add Manual Diff Complete 11/16/21 15:25 Total Counted 100 11/16/21 15:25 Seg Neutrophils % Bottle Hop 11/06/21 15:50 Seg Neuts % (Manual) 87.0 % (40.0-70.0) H 11/16/21 15:25 Band Neutrophils % 0 % 11/16/21 15:25 Lymphocytes % (Manual) 8.0 % (13.4-35.0) L 11/16/21 15:25 Reactive Lymphs % (Man) 0 % 11/16/21 15:25 Monocytes % (Manual) 5.0 % (0.0-7.3) 11/16/21 15:25 Eosinophils % (Manual) 0 % (0.0-4.3) 11/16/21 15:25 Basophils % (Manual) 0 % (0.0-1.8) 11/16/21 15:25 Metamyelocytes % 0 % 11/16/21 15:25 Myelocytes % 0 % 11/16/21 15:25 Promyelocytes % 0 % 11/16/21 15:25 Blast Cells % 0 % 11/16/21 15:25 Nucleated RBC % Not Reportable 11/16/21 15:25 Seg Neutrophils # Man 15.0 K/mm3 (1.8-7.7) H 11/16/21 15:25 Band Neutrophils # 0.0 K/mm3 11/16/21 15:25 Lymphocytes # (Manual) 1.4 K/mm3 (1.2-5.4) 11/16/21 15:25 Abs React Lymphs (Man) 0.0 K/mm3 11/16/21 15:25 Monocytes # (Manual) 0.9 K/mm3 (0.0-0.8) H 11/16/21 15:25 Eosinophils # (Manual) 0.0 K/mm3 (0.0-0.4) 11/16/21 15:25 Basophils # (Manual) 0.0 K/mm3 (0.0-0.1) 11/16/21 15:25 Metamyelocytes # 0.0 K/mm3 11/16/21 15:25 Myelocytes # 0.0 K/mm3 11/16/21 15:25 Promyelocytes # 0.0 K/mm3 11/16/21 15:25 Blast Cells # 0.0 K/mm3 11/16/21 15:25 WBC Morphology Not Reportable 11/16/21 15:25 Hypersegmented Neuts Not Reportable 11/16/21 15:25 Hyposegmented Neuts Not Reportable 11/16/21 15:25 Hypogranular Neuts Not Reportable 11/16/21 15:25 Smudge Cells Not Reportable 11/16/21 15:25 Toxic Granulation Not Reportable 11/16/21 15:25 Toxic Vacuolation Not Reportable 11/16/21 15:25 Dohle Bodies Not Reportable 11/16/21 15:25 Pelger-Huet Anomaly Not Reportable 11/16/21 15:25 Irina Rods Not Reportable 11/16/21 15:25 Platelet Estimate Consistent w auto 11/16/21 15:25 Clumped Platelets Rare 11/16/21 15:25 Plt Clumps, EDTA Not Reportable 11/16/21 15:25 Large Platelets Not Reportable 11/16/21 15:25 Giant Platelets Not Reportable 11/16/21 15:25 Platelet Satelliting Not Reportable 11/16/21 15:25 Plt Morphology Comment Not Reportable 11/16/21 15:25 RBC Morphology Not Reportable 11/16/21 15:25 Dimorphic RBCs Not Reportable 11/16/21 15:25 Polychromasia Not Reportable 11/16/21 15:25 Hypochromasia 2+ 11/16/21 15:25 Poikilocytosis Not Reportable 11/16/21 15:25 Anisocytosis 2+ 11/16/21 15:25 Microcytosis Not Reportable 11/16/21 15:25 Macrocytosis Not Reportable 11/16/21 15:25 Spherocytes Not Reportable 11/16/21 15:25 Pappenheimer Bodies Not Reportable 11/16/21 15:25 Sickle Cells Not Reportable 11/16/21 15:25 Target Cells 2+ 11/16/21 15:25 Tear Drop Cells Not Reportable 11/16/21 15:25 Ovalocytes Not Reportable 11/16/21 15:25 Helmet Cells Not Reportable 11/16/21 15:[address] [place] Bodies Not Reportable 11/16/21 15:25 Henriette Rings Not Reportable 11/16/21 15:25 Malcom Cells Not Reportable 11/16/21 15:25 Bite Cells Not Reportable 11/16/21 15:25 Crenated Cell Not Reportable 11/16/21 15:25 Elliptocytes Not Reportable 11/16/21 15:25 Acanthocytes (Spur) Not Reportable 11/16/21 15:25 Rouleaux Not Reportable 11/16/21 15:25 Hemoglobin C Crystals Not Reportable 11/16/21 15:25 Schistocytes Not Reportable 11/16/21 15:25 Malaria parasites Not Reportable 11/16/21 15:25 Godfrey Bodies Not Reportable 11/16/21 15:25 Hem Pathologist Commnt No 11/16/21 15:25 PT 18.6 Sec. (12.2-14.9) H 11/03/21 22:32 INR 1.40 (0.87-1.13) H 11/03/21 22:32 APTT 28.9 Sec. (24.2-36.6) 11/03/21 22:32 D-Dimer 2655.00 ng/mlDDU (0-234) H 11/11/21 04:28 ABG pH 7.407 pH Units (7.350-7.450) 11/14/21 16:14 ABG pCO2 45.6 mm Hg 11/14/21 16:14 ABG pO2 80.6 mm Hg (80.0-90.0) 11/14/21 16:14 ABG HCO3 28.0 mmol/L (20.0-26.0) H 11/14/21 16:14 ABG O2 Saturation 97.0 % (95.0-99.0) 11/14/21 16:14 ABG O2 Content 7.8 (0.0-44) 11/14/21 16:14 ABG Base Excess 3.1 mmol/L (-2.0-3.0) H 11/14/21 16:14 ABG Hemoglobin 5.8 gm/dl (12.0-16.0) L 11/14/21 16:14 ABG Carboxyhemoglobin 2.0 % (0.0-5.0) 11/14/21 16:14 ABG Methemoglobin 0.3 % (0.0-1.5) 11/14/21 16:14 Oxyhemoglobin 94.8 % (95.0-99.0) L 11/14/21 16:14 FiO2 35 % 11/14/21 16:14 Sodium 141 mmol/L (137-145) 11/20/21 05:40 Potassium 3.5 mmol/L (3.6-5.0) L 11/20/21 05:40 Chloride 108.9 mmol/L (98-107) H 11/20/21 05:40 Carbon Dioxide 23 mmol/L (22-30) 11/20/21 05:40 Anion Gap 13 mmol/L 11/20/21 05:40 BUN 37 mg/dL (7-17) H 11/20/21 05:40 Creatinine 0.8 mg/dL (0.6-1.2) 11/20/21 05:40 Estimated GFR > 60 ml/min 11/20/21 05:40 BUN/Creatinine Ratio 46 % 11/20/21 05:40 Glucose 117 mg/dL (65-100) H 11/20/21 05:40 POC Glucose 74 mg/dL (70-105) 11/20/21 12:04 Lactic Acid 3.70 mmol/L (0.7-2.0) H* 11/03/21 22:32 Calcium 7.5 mg/dL (8.4-10.2) L 11/20/21 05:40 Phosphorus 3.80 mg/dL (2.5-4.5) D 11/19/21 04:55 Magnesium 2.30 mg/dL (1.7-2.3) 11/19/21 04:55 Ferritin 52.6 ng/mL (10.0-200.0) 11/05/21 06:11 Total Bilirubin 0.50 mg/dL (0.1-1.2) 11/17/21 05:56 Direct Bilirubin < 0.2 mg/dL (0-0.2) 11/11/21 04:28 Indirect Bilirubin 0.1 mg/dL 11/11/21 04:28 AST 36 units/L (5-40) 11/17/21 05:56 ALT 47 units/L (7-56) 11/17/21 05:56 Alkaline Phosphatase 107 units/L (35-129) 11/17/21 05:56 Ammonia 42.0 umol/L (25-60) 11/10/21 14:08 Lactate Dehydrogenase 187 units/L (91-180) H 11/05/21 06:11 Troponin T 0.033 ng/mL (0.00-0.029) H 11/05/21 06:11 C-Reactive Protein 22.20 mg/dL (0.00-1.30) H 11/05/21 06:11 NT-Pro-B Natriuret Pep 7895 pg/mL (0-900) H 11/03/21 22:32 Total Protein 5.1 g/dL (6.3-8.2) L 11/17/21 05:56 Albumin 2.2 g/dL (3.9-5) L 11/17/21 05:56 Albumin/Globulin Ratio 0.8 % 11/17/21 05:56 Triglycerides 66 mg/dL (2-149) 11/03/21 22:32 Cholesterol 80 mg/dL (50-199) 11/03/21 22:32 LDL Cholesterol Direct 34 mg/dL (50-130) L 11/03/21 22:32 HDL Cholesterol 42 mg/dL (40-59) 11/03/21 22:32 Cholesterol/HDL Ratio 1.90 % 11/03/21 22:32 Vitamin B12 1823 pg/mL (211-911) H 11/10/21 14:08 TSH 1.510 mlU/mL (0.270-4.200) 11/10/21 14:08 Urine Color Yellow (Yellow) 11/11/21 09:00 Urine Turbidity Slightly-cloudy (Clear) 11/11/21 09:00 Urine pH 5.0 (5.0-7.0) 11/11/21 09:00 Ur Specific [place] 1.009 (1.003-1.030) 11/11/21 09:00 Urine Protein <15 mg/dl mg/dL (Negative) 11/11/21 09:00 Urine Glucose (UA) Neg mg/dL (Negative) 11/11/21 09:00 Urine Ketones Neg mg/dL (Negative) 11/11/21 09:00 Urine Blood Mod (Negative) 11/11/21 09:00 Urine Nitrite Neg (Negative) 11/11/21 09:00 Urine Bilirubin Neg (Negative) 11/11/21 09:00 Urine Urobilinogen < 2.0 mg/dL (<2.0) 11/11/21 09:00 Ur Leukocyte Esterase Neg (Negative) 11/11/21 09:00 Urine WBC (Auto) < 1.0 /HPF (0.0-6.0) 11/11/21 09:00 Urine RBC (Auto) < 1.0 /HPF (0.0-6.0) 11/11/21 09:00 Coronavirus (PCR) Negative (Negative) 11/10/21 08:30 Blood Type O POSITIVE 11/18/21 10:45 Antibody Screen Negative 11/18/21 10:45 Crossmatch See Detail 11/18/21 10:45 Gamble/IV: Voiding Method Incontinent Active Medications - Current Medications Current Medications: Generic Name Dose Route Start Last Admin Trade Name Freq PRN Reason Stop Dose Admin Acetaminophen 650 mg 11/04/21 02:03 11/16/21 15:43 Acetaminophen 325 Mg Tab PO 650 mg Q6H PRN Administration Pain MILD(1-3)/Fever >100.5/RODRIGUEZ Hydrocodone Bitart/Acetaminophen 1 each 11/15/21 20:00 11/20/21 09:52 Hydrocodone/Acetaminophen 10-325mg Tab PO 11/20/21 19:59 1 each TID YOSSI Administration Lipase/Protease/Amylase 1 each 11/08/21 11:09 Lipase 10,500/Protease 25,000/Amylase 43,750 (Units) Dr Lema FEEDTUBE PRN PRN For Clogged Feeding Tube Buspirone HCl 7.5 mg 11/17/21 22:00 11/20/21 09:52 Buspirone 5 Mg Tab PO 7.5 mg BID YOSSI Administration Dextrose 0 ml 11/10/21 10:52 11/20/21 12:37 Dextrose 10% *Hypoglycemia IV 50 ml PRN PRN Administration Hypoglycemia Docusate Sodium 100 mg 11/08/21 12:00 11/20/21 09:08 Docusate Sodium 100 Mg/10 Ml Oral Liqd PO Not Given BID YOSSI Fentanyl 1 applic 11/17/21 13:00 11/20/21 09:07 Fentanyl 25 Mcg/Hr Patch 72hr TD 1 applic Q3D YOSSI Administration Fentanyl 25 mcg 11/19/21 18:09 11/20/21 07:05 Fentanyl 100 Mcg/2 Ml Inj IV 11/21/21 18:08 25 mcg Q2HR PRN Administration Pain, Moderate (4-6) Hydrophilic Ointment 1 applic 11/06/21 04:02 Lip Therapy Vaseline TP Q2HR PRN Dry Lips NORepinephrine/NS 8 MG-250 ML 8 mg in 250 mls @ 3.75 mls/hr 11/05/21 09:00 11/18/21 03:26 Norepinephrine/Ns 8 Mg-250 Ml (Double Conc) IV 0 mcg/min TITRATE YOSSI 0 mls/hr Titration Protocol 2 MCG/MIN Vasopressin 20 unit/ Sodium 101 mls @ 9.09 mls/hr 11/05/21 23:00 11/06/21 01:00 Chloride IV 0.03 units/min TITR YOSSI 9.09 mls/hr Administration Protocol 0.03 UNITS/MIN Pantoprazole Sodium 80 mg/ 100 mls @ 10 mls/hr 11/16/21 17:00 11/20/21 01:34 Sodium Chloride IV 8 mg/hr DIRECT YOSSI 10 mls/hr Administration 8 MG/HR Fentanyl Citrate 2,000 mcg in 100 mls @ 3.12 mls/hr 11/17/21 13:00 11/20/21 10:11 Fentanyl Drip Premix IV 3 mcg/kg/hr TITR YOSSI 9.36 mls/hr Titration Protocol 1 MCG/KG/HR Dextrose 1,000 mls @ 75 mls/hr 11/17/21 16:00 11/20/21 06:44 D5w IV 11/21/21 05:19 75 mls/hr DIRECT YOSSI Administration Insulin Human Lispro 0 unit 11/06/21 12:00 11/20/21 12:40 Insulin Lispro 100 Unit/Ml SUB-Q Not Given Q6HR [facility] Protocol Levothyroxine Sodium 125 mcg 11/05/21 07:00 11/20/21 05:29 Levothyroxine 125 Mcg Tab PO Not Given DAILY@0600 [facility] Magnesium Hydroxide 30 ml 11/04/21 02:03 Magnesium Hydroxide (Mom) Oral Liqd Udc PO Q4H PRN Constipation Multi-Ingred Cream/Lotion/Oil/Oint 1 applic 11/06/21 04:02 Mineral Oil/Petrolatum, White Ophth Oint 3.5 Gm OU Q4HR PRN Dry Eye(s) Ondansetron HCl 4 mg 11/04/21 02:03 11/05/21 15:48 Ondansetron 4 Mg/2 Ml Inj IV 4 mg Q8H PRN Administration Nausea And Vomiting Polyethylene Glycol 17 gm 11/08/21 12:00 11/20/21 09:08 Polyethylene Glycol 3350 17 Gm Powder PO Not Given QDAY [facility] Potassium Chloride 40 meq 11/20/21 09:00 11/20/21 09:51 Potassium Chloride 20 Meq Packet FEEDTUBE 11/20/21 13:00 40 meq ONCE@0900 YOSSI Administration Pravastatin Sodium 20 mg 11/18/21 22:00 11/19/21 22:54 Pravastatin 20 Mg Tab PO Not Given QHS YOSSI Senna 17.6 mg 11/08/21 22:00 11/20/21 09:08 Sennosides Oral Liqd 8.8 Mg/5 Ml Oral Liqd PO Not Given Q12HR YOSSI Simple Syrup 15 ml 11/08/21 11:09 Simple Syrup 15 Ml FEEDTUBE PRN PRN Hypoglycemia Simple Syrup 30 ml 11/08/21 11:09 Simple Syrup 15 Ml FEEDTUBE PRN PRN Hypoglycemia Sodium Bicarbonate 325 mg 11/08/21 11:09 Sodium Bicarbonate 325 Mg Tab FEEDTUBE PRN PRN For Clogged Feeding Tube Sodium Chloride 10 ml 11/04/21 10:00 11/20/21 09:07 Sodium Chloride 0.9% 10 Ml Flush Syringe IV 10 ml BID YOSSI Administration Sodium Chloride 10 ml 11/04/21 02:03 Sodium Chloride 0.9% 10 Ml Flush Syringe IV PRN PRN LINE FLUSH Sodium Chloride 10 ml 11/10/21 09:57 11/17/21 20:47 Sodium Chloride 0.9% 50 Ml Ivpb IV 10 ml PRN PRN Administration FLUSH Sucralfate 1 gm 11/18/21 16:30 11/20/21 12:00 Sucralfate 1 Gm/10 Ml Oral Liqd PO 1 gm ACHS YOSSI Administration Nutrition/Malnutrition Assess - Dietary Evaluation Nutrition/Malnutrition Findings: Nutrition Notes Start: 11/04/21 17:16 Freq: Status: Active Protocol: Document 11/19/21 16:30 ISABELL (Rec: 11/19/21 16:41 ISABELL [email or web address]) Nutrition Notes Initial or Follow up Brief Note Current Diet NPO. Height 5 ft Weight 62.4 kg [place] Body Weight (kg) 45.45 BMI 26.9 Weight change and time frame No body weight change reported . Weight Status Appropriate Subjective/Other Information RD consult for routine F/U on TF resume. Pt presented GI bleed. Procedure: EGD with hemostasis and biopsy. Pt continues on mechanical ventilation. indication to continue NPO. Percent of energy/protein needs met: Pt currently on NPO. Nutrition Intervention Follow-Up By: 11/21/21 Additional Comments F/U: TF restart/tolerance, vent status, Na lab/water flush
[2021-11-12] MEDS: NORepinephrine/NS 8 MG-250 ML 8 MG/250 ML INFUS..BTL IV SCH (23:30)
[2021-11-13] MEDS: INSULIN LISPRO 100 UNIT/ML SUB-Q SCH ×4 (00:03→18:40)
[2021-11-13] MEDS: CEFEPIME/NS 1 GM/100 ML 1 GM/100 ML BAG IV SCH ×3 (01:52→15:15)
[2021-11-13] MEDS: FREE WATER PO SCH ×3 (02:50→09:10)
[2021-11-13] MEDS: fentaNYL DRIP Premix 2,000 MCG/100 ML BAG IV SCH ×2 (05:53→18:10)
[2021-11-13] MEDS: FUROSEMIDE 20 MG/2 ML INJ IV SCH ×2 (05:55→18:01)
[2021-11-13] MEDS: LEVOTHYROXINE 125 MCG TAB PO SCH (05:55)
[2021-11-13 06:57] LABS: Hematocrit 23.2 % (30.3-42.9); Hemoglobin 6.8 gm/dl (10.1-14.3); Mean Corpuscular HGB Conc 29 % (30-34); Mean Corpuscular Volume 74 fl (79-97); Platelet Count 135 K/mm3 (140-440); Red Blood Count 3.12 M/mm3 (3.65-5.03)
[2021-11-13 07:00] LABS: Red Cell Distribution Width 22.2 % (13.2-15.2)
[2021-11-13 07:34] LABS: Hemolysis Index 0
[2021-11-13 08:09] LABS: BUN/Creatinine Ratio 67; Blood Urea Nitrogen 40 mg/dL (7-17); Calcium 7.3 mg/dL (8.4-10.2)
[2021-11-13 08:10] LABS: Alanine Aminotransferase 72 units/L (7-56); Albumin 2.2 g/dL (3.9-5)
[2021-11-13] MEDS ORDERED: SODIUM CHLORIDE 0.9% 500 ML 500 ML IV SCH (08:17)
[2021-11-13] MEDS: METOPROLOL TARTRATE 25 MG TAB FEEDTUBE SCH (09:10)
[2021-11-13] MEDS: DOCUSATE SODIUM 100 MG/10 ML ORAL LIQD PO SCH ×2 (09:10→21:39)
[2021-11-13] MEDS: SENNOSIDES ORAL LIQD 8.8 MG/5 ML ORAL LIQD PO SCH ×2 (09:10→21:39)
[2021-11-13] MEDS: FAMOTIDINE 10 MG TAB FEEDTUBE SCH ×2 (09:10→21:38)
[2021-11-13] MEDS: POLYETHYLENE GLYCOL 3350 17 GM POWDER PO SCH (09:10)
--- NOTE | 2021-11-13 09:33 | Progress Note ---
Assessment and Plan 81-year-old female with known history of diabetes mellitus, hypertension and arthritis brought to the emergency room via EMS today for shortness of breath which has been ongoing for the past 3 days. Patient has been having some cough and shortness of breath. According to patient's , patient has also been having a fever of about 102.2 F. Upon arrival of EMS patient was found to be tachypneic with O2 saturation of 76% on room air which later improved to 88% on nonrebreather. Work-up in the emergency room today, chest x-ray shows bilateral interstitial pulmonary edema with bilateral pleural effusions.. Bibasilar opacities which favors atelectasis. Assessment and Plan #Acute Encephalopathy improved she is alert follow command ,move allextremites to stimulation and command -on Fentanyl today IV# 3mc due to pain and agitation -Initial Ct brain showed no acute event -EEG is slightly slow , no seizure activity is noted -MRI brain unable to do due to pace maker/ foreign body metal .. - will repeat CT brain pending # Diffuse weakness - mostly related to bed ridden - need pt therapy evaluation. #Septic Shock POA #Bilateral Pneumonia #Bacteremia - Presented with fevers, leukocytosis, and hypotension - COVID PCR negative - 11/04 B.cult with 3/4 group B strep bacteremia - 11/04 2D Echo with no evidence of vegetation - Trend CBC #Acute Hypoxic Respiratory Failure 2/2 #Bilateral Pleural Effusion #Bilateral Pneumonia # Pneumothorax after bronchoscopy --she is with right side chest tube. - COVID PCR negative - CXR shows Bilateral opacities, may be volume overloaded. #CHF- EF 30-35% with PPM #Hypotension-improved #Septic Kristian - Was on 3 pressors initially - Off pressors - SR on the monitor, HR 70-90s - 11/04 Echo-EF 30-35% - Maintain MAP above 65 #Acute Microcytic Anemia # Positive US lEs in Right external iliac vein , right common femoral vein and superior aspect right femoral vein #Transaminitis/Shock Liver #DVT Prophylaxis - Continue AC- heparin subQ-Full dose - SCDs to bilateral lower extremities while in bed will follow awak and follows command pt therapy extubation when stable per Pulmonary . Subjective Date of service: 11/13/21 Principal diagnosis: Septic shock; AHRF; Anemia; Pneumonia; L. pleural effusion; HFrEF; Pulm HTN Interval history: continues to be intubated awak today respond to command moving all extremities slightly agitated started on small dose fentanyl 3mc could not do MRI due to metal in body eeg is reasonably will maintained back ground !!! Ammonia#42 b12 and folate wnl US les is remarkable for DVT iliac and femral veins she is on SQ heparin Allergic to ASA as per cardiology note. WBCs is more elevated today 21.2K, Hg#6.8 Na#149--40/0.6 Objective - Vital Sign Vital Signs - 12hr 11/12/21 11/12/21 11/12/21 21:30 21:45 22:00 Temperature Pulse Rate 79 76 77 Pulse Rate [ From Monitor] Pulse Rate [ Left Dorsalis Pedis] Pulse Rate [ Left Radial] Pulse Rate [ Right Dorsalis Pedis] Pulse Rate [ Right Radial] Respiratory 14 14 14 Rate Blood Pressure 89/38 87/37 96/42 O2 Sat by Pulse 98 100 100 Oximetry 11/12/21 11/12/21 11/12/21 22:15 22:30 22:45 Temperature Pulse Rate 74 74 75 Pulse Rate [ From Monitor] Pulse Rate [ Left Dorsalis Pedis] Pulse Rate [ Left Radial] Pulse Rate [ Right Dorsalis Pedis] Pulse Rate [ Right Radial] Respiratory 14 15 14 Rate Blood Pressure 86/37 85/37 91/38 O2 Sat by Pulse 100 98 100 Oximetry 11/12/21 11/12/21 11/12/21 23:01 23:15 23:30 Temperature Pulse Rate 95 H 90 80 Pulse Rate [ From Monitor] Pulse Rate [ Left Dorsalis Pedis] Pulse Rate [ Left Radial] Pulse Rate [ Right Dorsalis Pedis] Pulse Rate [ Right Radial] Respiratory 13 15 15 Rate Blood Pressure 99/64 103/59 80/38 O2 Sat by Pulse 73 L 98 Oximetry 11/12/21 11/13/21 11/13/21 23:45 00:00 00:07 Temperature 98.4 F Pulse Rate 81 78 79 Pulse Rate [ 79 From Monitor] Pulse Rate [ Left Dorsalis Pedis] Pulse Rate [ Left Radial] Pulse Rate [ Right Dorsalis Pedis] Pulse Rate [ Right Radial] Respiratory 14 14 17 Rate Blood Pressure 83/42 95/46 95/46 O2 Sat by Pulse 99 100 100 Oximetry 11/13/21 11/13/21 11/13/21 00:15 00:22 00:30 Temperature Pulse Rate 81 82 84 Pulse Rate [ From Monitor] Pulse Rate [ Left Dorsalis Pedis] Pulse Rate [ Left Radial] Pulse Rate [ Right Dorsalis Pedis] Pulse Rate [ Right Radial] Respiratory 14 16 Rate Blood Pressure 105/54 105/54 106/53 O2 Sat by Pulse 99 99 100 Oximetry 11/13/21 11/13/21 11/13/21 00:45 01:00 01:15 Temperature Pulse Rate 81 85 85 Pulse Rate [ From Monitor] Pulse Rate [ Left Dorsalis Pedis] Pulse Rate [ Left Radial] Pulse Rate [ Right Dorsalis Pedis] Pulse Rate [ Right Radial] Respiratory 16 14 16 Rate Blood Pressure 109/50 98/45 105/48 O2 Sat by Pulse 100 100 Oximetry 11/13/21 11/13/21 11/13/21 01:30 01:45 02:00 Temperature Pulse Rate 82 87 89 Pulse Rate [ From Monitor] Pulse Rate [ Left Dorsalis Pedis] Pulse Rate [ Left Radial] Pulse Rate [ Right Dorsalis Pedis] Pulse Rate [ Right Radial] Respiratory 17 15 16 Rate Blood Pressure 96/45 103/56 107/51 O2 Sat by Pulse 100 Oximetry 11/13/21 11/13/21 11/13/21 02:15 02:30 02:45 Temperature Pulse Rate 89 95 H 89 Pulse Rate [ From Monitor] Pulse Rate [ Left Dorsalis Pedis] Pulse Rate [ Left Radial] Pulse Rate [ Right Dorsalis Pedis] Pulse Rate [ Right Radial] Respiratory 20 18 15 Rate Blood Pressure 106/56 108/57 104/53 O2 Sat by Pulse 99 99 99 Oximetry 11/13/21 11/13/21 11/13/21 03:00 03:15 03:30 Temperature Pulse Rate 83 83 82 Pulse Rate [ From Monitor] Pulse Rate [ Left Dorsalis Pedis] Pulse Rate [ Left Radial] Pulse Rate [ Right Dorsalis Pedis] Pulse Rate [ Right Radial] Respiratory 18 16 16 Rate Blood Pressure 103/48 102/51 95/48 O2 Sat by Pulse 98 98 97 Oximetry 11/13/21 11/13/21 11/13/21 03:45 03:50 04:00 Temperature 98.7 F Pulse Rate 86 82 83 Pulse Rate [ 83 From Monitor] Pulse Rate [ Left Dorsalis Pedis] Pulse Rate [ Left Radial] Pulse Rate [ Right Dorsalis Pedis] Pulse Rate [ Right Radial] Respiratory 17 17 Rate Blood Pressure 108/55 106/53 O2 Sat by Pulse 98 99 Oximetry 11/13/21 11/13/21 11/13/21 04:08 04:15 04:30 Temperature Pulse Rate 85 86 87 Pulse Rate [ From Monitor] Pulse Rate [ Left Dorsalis Pedis] Pulse Rate [ Left Radial] Pulse Rate [ Right Dorsalis Pedis] Pulse Rate [ Right Radial] Respiratory 13 15 Rate Blood Pressure 106/53 106/56 112/57 O2 Sat by Pulse 98 98 100 Oximetry 11/13/21 11/13/21 11/13/21 04:45 05:00 05:15 Temperature Pulse Rate 85 85 86 Pulse Rate [ From Monitor] Pulse Rate [ Left Dorsalis Pedis] Pulse Rate [ Left Radial] Pulse Rate [ Right Dorsalis Pedis] Pulse Rate [ Right Radial] Respiratory 16 15 16 Rate Blood Pressure 103/51 110/55 104/52 O2 Sat by Pulse 98 99 99 Oximetry 11/13/21 11/13/21 11/13/21 05:30 05:45 06:00 Temperature Pulse Rate 87 90 94 H Pulse Rate [ From Monitor] Pulse Rate [ Left Dorsalis Pedis] Pulse Rate [ Left Radial] Pulse Rate [ Right Dorsalis Pedis] Pulse Rate [ Right Radial] Respiratory 17 22 17 Rate Blood Pressure 113/53 113/55 123/62 O2 Sat by Pulse 99 99 99 Oximetry 11/13/21 11/13/21 11/13/21 06:15 06:30 06:45 Temperature Pulse Rate 90 93 H 82 Pulse Rate [ From Monitor] Pulse Rate [ Left Dorsalis Pedis] Pulse Rate [ Left Radial] Pulse Rate [ Right Dorsalis Pedis] Pulse Rate [ Right Radial] Respiratory 15 18 17 Rate Blood Pressure 103/49 108/50 87/39 O2 Sat by Pulse 96 98 99 Oximetry 11/13/21 11/13/21 11/13/21 07:00 07:15 07:30 Temperature Pulse Rate 82 87 82 Pulse Rate [ From Monitor] Pulse Rate [ Left Dorsalis Pedis] Pulse Rate [ Left Radial] Pulse Rate [ Right Dorsalis Pedis] Pulse Rate [ Right Radial] Respiratory 16 14 17 Rate Blood Pressure 86/43 101/52 92/44 O2 Sat by Pulse 99 99 98 Oximetry 11/13/21 11/13/21 11/13/21 07:45 08:00 08:15 Temperature 100.1 F H Pulse Rate 82 82 82 Pulse Rate [ 82 From Monitor] Pulse Rate [ 80 Left Dorsalis Pedis] Pulse Rate [ 78 Left Radial] Pulse Rate [ 80 Right Dorsalis Pedis] Pulse Rate [ 78 Right Radial] Respiratory 15 15 14 Rate Blood Pressure 94/48 94/47 95/48 O2 Sat by Pulse 99 98 99 Oximetry 11/13/21 11/13/21 08:30 09:10 Temperature Pulse Rate 92 H 83 Pulse Rate [ From Monitor] Pulse Rate [ Left Dorsalis Pedis] Pulse Rate [ Left Radial] Pulse Rate [ Right Dorsalis Pedis] Pulse Rate [ Right Radial] Respiratory 18 Rate Blood Pressure 113/58 101/48 O2 Sat by Pulse 100 Oximetry - General Apperance Constitutional: uncomfortable - EENT EENT: PERRL, mucous membranes moist - Respiratory Respiratory: chest non-tender, lungs clear, rhonchi - Cardiovascular Cardiovascular: regular rate, normal S1, normal S2 Extremities: no peripheral edema bilat, no clubbing, cyanosis - Gastrointestinal Gastrointestinal: normoactive bowel sounds - Integumentary Integumentary: normal - Neurologic Cranial nerve examination: PERRL, EOMI, intact Speech examination: other (intubated , respond to command ,move allextremities , planter is down going .) - Laboratory Findings CBC and BMP: 11/13/21 06:30 11/13/21 06:30 Abnormal Lab Findings: Abnormal Labs 11/03/21 11/03/21 11/03/21 22:32 22:32 22:32 WBC 29.3 H RBC 2.93 L Hgb 6.1 L Hct 21.9 L MCV 75 L MCH 21 L MCHC 28 L RDW 19.7 H Plt Count Seg Neuts % (Manual) 97.0 H Lymphocytes % (Manual) 3.0 L Seg Neutrophils # Man 28.4 H Lymphocytes # (Manual) 0.9 L Monocytes # (Manual) PT 18.6 H INR 1.40 H D-Dimer ABG pH ABG pO2 ABG HCO3 ABG O2 Saturation ABG Base Excess ABG Hemoglobin Oxyhemoglobin Sodium Potassium Chloride Carbon Dioxide 20 L BUN 33 H Glucose 119 H POC Glucose Lactic Acid Calcium 8.3 L Phosphorus Magnesium AST ALT Alkaline Phosphatase Lactate Dehydrogenase Troponin T 0.035 H C-Reactive Protein NT-Pro-B Natriuret Pep Total Protein Albumin LDL Cholesterol Direct 34 L Vitamin B12 Crossmatch 11/03/21 11/03/21 11/03/21 22:32 22:32 23:57 WBC RBC Hgb Hct MCV MCH MCHC RDW Plt Count Seg Neuts % (Manual) Lymphocytes % (Manual) Seg Neutrophils # Man Lymphocytes # (Manual) Monocytes # (Manual) PT INR D-Dimer ABG pH ABG pO2 ABG HCO3 ABG O2 Saturation ABG Base Excess ABG Hemoglobin Oxyhemoglobin Sodium Potassium Chloride Carbon Dioxide BUN Glucose POC Glucose Lactic Acid 3.70 H* Calcium Phosphorus Magnesium AST ALT Alkaline Phosphatase 139 H Lactate Dehydrogenase Troponin T C-Reactive Protein NT-Pro-B Natriuret Pep 7895 H Total Protein Albumin 3.5 L LDL Cholesterol Direct Vitamin B12 Crossmatch See Detail 11/04/21 11/04/21 11/05/21 00:59 13:58 00:51 WBC 27.9 H RBC 3.28 L Hgb 7.3 L Hct 25.5 L MCV 78 L MCH 22 L MCHC 29 L RDW 19.1 H Plt Count Seg Neuts % (Manual) 96.0 H Lymphocytes % (Manual) 2.0 L Seg Neutrophils # Man 26.8 H Lymphocytes # (Manual) 0.6 L Monocytes # (Manual) PT INR D-Dimer ABG pH ABG pO2 ABG HCO3 ABG O2 Saturation ABG Base Excess ABG Hemoglobin Oxyhemoglobin Sodium Potassium Chloride Carbon Dioxide BUN Glucose POC Glucose Lactic Acid Calcium Phosphorus Magnesium AST ALT Alkaline Phosphatase Lactate Dehydrogenase Troponin T 0.051 H D 0.032 H D C-Reactive Protein NT-Pro-B Natriuret Pep Total Protein Albumin LDL Cholesterol Direct Vitamin B12 Crossmatch 11/05/21 11/05/21 11/05/21 06:11 06:11 06:11 WBC 31.8 H RBC 3.57 L Hgb 8.0 L Hct 27.7 L MCV 78 L MCH 22 L MCHC 29 L RDW 19.2 H Plt Count Seg Neuts % (Manual) 91.0 H Lymphocytes % (Manual) 4.5 L Seg Neutrophils # Man 28.9 H Lymphocytes # (Manual) Monocytes # (Manual) 1.1 H PT INR D-Dimer 1494.53 H ABG pH ABG pO2 ABG HCO3 ABG O2 Saturation ABG Base Excess ABG Hemoglobin Oxyhemoglobin Sodium Potassium Chloride Carbon Dioxide 19 L BUN 42 H Glucose 115 H POC Glucose Lactic Acid Calcium Phosphorus Magnesium AST 43 H ALT Alkaline Phosphatase Lactate Dehydrogenase 187 H Troponin T C-Reactive Protein 22.20 H NT-Pro-B Natriuret Pep Total Protein 6.0 L Albumin 3.2 L LDL Cholesterol Direct Vitamin B12 Crossmatch 11/05/21 11/05/21 11/06/21 06:11 12:15 00:30 WBC RBC Hgb Hct MCV MCH MCHC RDW Plt Count Seg Neuts % (Manual) Lymphocytes % (Manual) Seg Neutrophils # Man Lymphocytes # (Manual) Monocytes # (Manual) PT INR D-Dimer ABG pH ABG pO2 ABG HCO3 ABG O2 Saturation ABG Base Excess ABG Hemoglobin Oxyhemoglobin Sodium Potassium Chloride Carbon Dioxide BUN Glucose POC Glucose 113 H 69 L Lactic Acid Calcium Phosphorus Magnesium AST ALT Alkaline Phosphatase Lactate Dehydrogenase Troponin T 0.033 H C-Reactive Protein NT-Pro-B Natriuret Pep Total Protein Albumin LDL Cholesterol Direct Vitamin B12 Crossmatch 11/06/21 11/06/21 11/06/21 05:50 15:50 15:50 WBC 25.5 H RBC 3.62 L Hgb 8.0 L Hct 27.5 L MCV 76 L MCH 22 L MCHC 29 L RDW 19.6 H Plt Count Seg Neuts % (Manual) 92.0 H Lymphocytes % (Manual) 5.0 L Seg Neutrophils # Man 23.5 H Lymphocytes # (Manual) Monocytes # (Manual) PT INR D-Dimer ABG pH 7.305 L ABG pO2 ABG HCO3 15.8 L ABG O2 Saturation ABG Base Excess -9.6 L ABG Hemoglobin 8.6 L Oxyhemoglobin 94.6 L Sodium Potassium Chloride 113.9 H Carbon Dioxide 17 L BUN 56 H Glucose 114 H POC Glucose Lactic Acid Calcium 7.9 L Phosphorus Magnesium AST 1410 H ALT 934 H Alkaline Phosphatase 142 H Lactate Dehydrogenase Troponin T C-Reactive Protein NT-Pro-B Natriuret Pep Total Protein 5.0 L Albumin 2.6 L LDL Cholesterol Direct Vitamin B12 Crossmatch 11/07/21 11/07/21 11/07/21 03:30 04:50 08:07 WBC RBC Hgb Hct MCV MCH MCHC RDW Plt Count Seg Neuts % (Manual) Lymphocytes % (Manual) Seg Neutrophils # Man Lymphocytes # (Manual) Monocytes # (Manual) PT INR D-Dimer ABG pH ABG pO2 296.9 H ABG HCO3 18.1 L ABG O2 Saturation 99.5 H ABG Base Excess -5.9 L ABG Hemoglobin 7.6 L Oxyhemoglobin Sodium Potassium Chloride Carbon Dioxide BUN Glucose POC Glucose 106 H 108 H Lactic Acid Calcium Phosphorus Magnesium AST ALT Alkaline Phosphatase Lactate Dehydrogenase Troponin T C-Reactive Protein NT-Pro-B Natriuret Pep Total Protein Albumin LDL Cholesterol Direct Vitamin B12 Crossmatch 11/08/21 11/08/21 11/08/21 03:10 18:05 23:43 WBC RBC Hgb Hct MCV MCH MCHC RDW Plt Count Seg Neuts % (Manual) Lymphocytes % (Manual) Seg Neutrophils # Man Lymphocytes # (Manual) Monocytes # (Manual) PT INR D-Dimer ABG pH ABG pO2 127.4 H ABG HCO3 ABG O2 Saturation ABG Base Excess -3.4 L ABG Hemoglobin 7.4 L Oxyhemoglobin Sodium Potassium Chloride Carbon Dioxide BUN Glucose POC Glucose 113 H 141 H Lactic Acid Calcium Phosphorus Magnesium AST ALT Alkaline Phosphatase Lactate Dehydrogenase Troponin T C-Reactive Protein NT-Pro-B Natriuret Pep Total Protein Albumin LDL Cholesterol Direct Vitamin B12 Crossmatch 11/08/21 11/08/21 11/09/21 Unknown Unknown 02:00 WBC 14.5 H RBC 3.35 L Hgb 7.5 L 8.1 L Hct 25.4 L 27.6 L MCV 76 L 76 L MCH 23 L 22 L MCHC RDW 19.9 H 19.9 H Plt Count Seg Neuts % (Manual) Lymphocytes % (Manual) Seg Neutrophils # Man Lymphocytes # (Manual) Monocytes # (Manual) PT INR D-Dimer ABG pH ABG pO2 ABG HCO3 ABG O2 Saturation ABG Base Excess ABG Hemoglobin Oxyhemoglobin Sodium 154 H D Potassium 3.3 L Chloride 120.7 H Carbon Dioxide 20 L BUN 38 H Glucose POC Glucose Lactic Acid Calcium 8.3 L Phosphorus Magnesium AST ALT Alkaline Phosphatase Lactate Dehydrogenase Troponin T C-Reactive Protein NT-Pro-B Natriuret Pep Total Protein Albumin LDL Cholesterol Direct Vitamin B12 Crossmatch 11/09/21 11/09/21 11/09/21 02:00 02:31 05:12 WBC RBC Hgb Hct MCV MCH MCHC RDW Plt Count Seg Neuts % (Manual) Lymphocytes % (Manual) Seg Neutrophils # Man Lymphocytes # (Manual) Monocytes # (Manual) PT INR D-Dimer ABG pH 7.479 H ABG pO2 121.3 H ABG HCO3 ABG O2 Saturation ABG Base Excess ABG Hemoglobin 7.3 L Oxyhemoglobin Sodium Potassium Chloride 112.5 H Carbon Dioxide BUN 33 H Glucose 161 H POC Glucose 135 H Lactic Acid Calcium Phosphorus Magnesium AST 251 H ALT 481 H Alkaline Phosphatase Lactate Dehydrogenase Troponin T C-Reactive Protein NT-Pro-B Natriuret Pep Total Protein 5.0 L Albumin 2.8 L LDL Cholesterol Direct Vitamin B12 Crossmatch 11/09/21 11/09/21 11/09/21 11:33 16:32 23:28 WBC RBC Hgb Hct MCV MCH MCHC RDW Plt Count Seg Neuts % (Manual) Lymphocytes % (Manual) Seg Neutrophils # Man Lymphocytes # (Manual) Monocytes # (Manual) PT INR D-Dimer ABG pH ABG pO2 ABG HCO3 ABG O2 Saturation ABG Base Excess ABG Hemoglobin Oxyhemoglobin Sodium Potassium Chloride Carbon Dioxide BUN Glucose POC Glucose 132 H 133 H 143 H Lactic Acid Calcium Phosphorus Magnesium AST ALT Alkaline Phosphatase Lactate Dehydrogenase Troponin T C-Reactive Protein NT-Pro-B Natriuret Pep Total Protein Albumin LDL Cholesterol Direct Vitamin B12 Crossmatch 11/10/21 11/10/21 11/10/21 04:00 04:00 05:35 WBC 16.0 H RBC 3.61 L Hgb 8.0 L Hct 27.1 L MCV 75 L MCH 22 L MCHC RDW 20.4 H Plt Count Seg Neuts % (Manual) Lymphocytes % (Manual) Seg Neutrophils # Man Lymphocytes # (Manual) Monocytes # (Manual) PT INR D-Dimer ABG pH ABG pO2 ABG HCO3 ABG O2 Saturation ABG Base Excess ABG Hemoglobin Oxyhemoglobin Sodium 149 H Potassium Chloride 114.1 H Carbon Dioxide BUN 31 H Glucose 148 H POC Glucose 132 H Lactic Acid Calcium 8.2 L Phosphorus Magnesium AST ALT Alkaline Phosphatase Lactate Dehydrogenase Troponin T C-Reactive Protein NT-Pro-B Natriuret Pep Total Protein Albumin LDL Cholesterol Direct Vitamin B12 Crossmatch 11/10/21 11/10/21 11/10/21 11:31 14:08 15:35 WBC RBC Hgb Hct MCV MCH MCHC RDW Plt Count Seg Neuts % (Manual) Lymphocytes % (Manual) Seg Neutrophils # Man Lymphocytes # (Manual) Monocytes # (Manual) PT INR D-Dimer ABG pH ABG pO2 126.6 H ABG HCO3 ABG O2 Saturation ABG Base Excess ABG Hemoglobin 7.4 L Oxyhemoglobin Sodium Potassium Chloride Carbon Dioxide BUN Glucose POC Glucose 147 H Lactic Acid Calcium Phosphorus Magnesium AST ALT Alkaline Phosphatase Lactate Dehydrogenase Troponin T C-Reactive Protein NT-Pro-B Natriuret Pep Total Protein Albumin LDL Cholesterol Direct Vitamin B12 1823 H Crossmatch 11/10/21 11/11/21 11/11/21 17:53 00:55 04:28 WBC RBC Hgb Hct MCV MCH MCHC RDW Plt Count Seg Neuts % (Manual) Lymphocytes % (Manual) Seg Neutrophils # Man Lymphocytes # (Manual) Monocytes # (Manual) PT INR D-Dimer ABG pH ABG pO2 ABG HCO3 ABG O2 Saturation ABG Base Excess ABG Hemoglobin Oxyhemoglobin Sodium 149 H Potassium Chloride 112.2 H Carbon Dioxide BUN 34 H Glucose 148 H POC Glucose 140 H 145 H Lactic Acid Calcium 7.9 L Phosphorus Magnesium AST 53 H ALT 203 H Alkaline Phosphatase Lactate Dehydrogenase Troponin T C-Reactive Protein NT-Pro-B Natriuret Pep Total Protein 4.9 L Albumin 2.6 L LDL Cholesterol Direct Vitamin B12 Crossmatch 11/11/21 11/11/21 11/11/21 04:28 04:28 05:28 WBC 20.9 H RBC 3.47 L Hgb 7.5 L Hct 26.0 L MCV 75 L MCH 22 L MCHC 29 L RDW 21.6 H Plt Count 132 L Seg Neuts % (Manual) Lymphocytes % (Manual) Seg Neutrophils # Man Lymphocytes # (Manual) Monocytes # (Manual) PT INR D-Dimer 2655.00 H ABG pH ABG pO2 ABG HCO3 ABG O2 Saturation ABG Base Excess ABG Hemoglobin Oxyhemoglobin Sodium Potassium Chloride Carbon Dioxide BUN Glucose POC Glucose 154 H Lactic Acid Calcium Phosphorus Magnesium AST ALT Alkaline Phosphatase Lactate Dehydrogenase Troponin T C-Reactive Protein NT-Pro-B Natriuret Pep Total Protein Albumin LDL Cholesterol Direct Vitamin B12 Crossmatch 11/11/21 11/11/21 11/12/21 12:38 18:13 00:14 WBC RBC Hgb Hct MCV MCH MCHC RDW Plt Count Seg Neuts % (Manual) Lymphocytes % (Manual) Seg Neutrophils # Man Lymphocytes # (Manual) Monocytes # (Manual) PT INR D-Dimer ABG pH ABG pO2 ABG HCO3 ABG O2 Saturation ABG Base Excess ABG Hemoglobin Oxyhemoglobin Sodium Potassium Chloride Carbon Dioxide BUN Glucose POC Glucose 137 H 108 H 137 H Lactic Acid Calcium Phosphorus Magnesium AST ALT Alkaline Phosphatase Lactate Dehydrogenase Troponin T C-Reactive Protein NT-Pro-B Natriuret Pep Total Protein Albumin LDL Cholesterol Direct Vitamin B12 Crossmatch 11/12/21 11/12/21 11/12/21 05:40 06:24 11:12 WBC RBC Hgb Hct MCV MCH MCHC RDW Plt Count Seg Neuts % (Manual) Lymphocytes % (Manual) Seg Neutrophils # Man Lymphocytes # (Manual) Monocytes # (Manual) PT INR D-Dimer ABG pH 7.586 H ABG pO2 150.6 H ABG HCO3 27.2 H ABG O2 Saturation 99.1 H ABG Base Excess 5.2 H ABG Hemoglobin 7.5 L Oxyhemoglobin Sodium Potassium Chloride Carbon Dioxide BUN Glucose POC Glucose 132 H 140 H Lactic Acid Calcium Phosphorus Magnesium AST ALT Alkaline Phosphatase Lactate Dehydrogenase Troponin T C-Reactive Protein NT-Pro-B Natriuret Pep Total Protein Albumin LDL Cholesterol Direct Vitamin B12 Crossmatch 11/12/21 11/12/21 11/12/21 14:50 14:50 17:13 WBC 19.8 H RBC 3.27 L Hgb 7.1 L Hct 24.5 L MCV 75 L MCH 22 L MCHC 29 L RDW 22.3 H Plt Count Seg Neuts % (Manual) Lymphocytes % (Manual) Seg Neutrophils # Man Lymphocytes # (Manual) Monocytes # (Manual) PT INR D-Dimer ABG pH ABG pO2 ABG HCO3 ABG O2 Saturation ABG Base Excess ABG Hemoglobin Oxyhemoglobin Sodium 150 H Potassium 3.3 L Chloride 112.0 H Carbon Dioxide BUN 40 H Glucose 151 H POC Glucose 121 H Lactic Acid Calcium 7.4 L Phosphorus 1.70 L Magnesium 1.40 L AST ALT Alkaline Phosphatase Lactate Dehydrogenase Troponin T C-Reactive Protein NT-Pro-B Natriuret Pep Total Protein Albumin LDL Cholesterol Direct Vitamin B12 Crossmatch 11/12/21 11/13/21 11/13/21 23:19 05:34 06:30 WBC RBC Hgb Hct MCV MCH MCHC RDW Plt Count Seg Neuts % (Manual) Lymphocytes % (Manual) Seg Neutrophils # Man Lymphocytes # (Manual) Monocytes # (Manual) PT INR D-Dimer ABG pH ABG pO2 ABG HCO3 ABG O2 Saturation ABG Base Excess ABG Hemoglobin Oxyhemoglobin Sodium 149 H Potassium Chloride 60.0 L Carbon Dioxide BUN 40 H Glucose 146 H POC Glucose 113 H 132 H Lactic Acid Calcium 7.3 L Phosphorus Magnesium 2.40 H AST ALT 72 H Alkaline Phosphatase Lactate Dehydrogenase Troponin T C-Reactive Protein NT-Pro-B Natriuret Pep Total Protein 5.2 L Albumin 2.2 L LDL Cholesterol Direct Vitamin B12 Crossmatch 11/13/21 06:30 WBC 21.2 H RBC 3.12 L Hgb 6.8 L Hct 23.2 L MCV 74 L MCH 22 L MCHC 29 L RDW 22.2 H Plt Count 135 L Seg Neuts % (Manual) Lymphocytes % (Manual) Seg Neutrophils # Man Lymphocytes # (Manual) Monocytes # (Manual) PT INR D-Dimer ABG pH ABG pO2 ABG HCO3 ABG O2 Saturation ABG Base Excess ABG Hemoglobin Oxyhemoglobin Sodium Potassium Chloride Carbon Dioxide BUN Glucose POC Glucose Lactic Acid Calcium Phosphorus Magnesium AST ALT Alkaline Phosphatase Lactate Dehydrogenase Troponin T C-Reactive Protein NT-Pro-B Natriuret Pep Total Protein Albumin LDL Cholesterol Direct Vitamin B12 Crossmatch
[2021-11-13] MEDS: ENOXAPARIN 60 MG/0.6 ML INJ SUB-Q SCH ×2 (09:50→21:38)
--- NOTE | 2021-11-13 11:56 | Progress Note ---
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 She was found to be in respiratory distress, initially treated with NRB. Pt was also noted to be septic with radiographic evidence of bilateral PNA Acute Respiratory Failure Septic Shock GBS Bacteremia Bilateral Pneumonia Bilateral Pleural Effusions Right pneumothorax and s/p right chest tube Acute HFrEF Cardiomyopathy (EF reduced to 30-35% on echo this admission) NSVT Tn Elevation (?Type 2 IN in the setting of hypoxia & shock) Elevated LFTs (?shock liver) Anemia Hypokalemia CAD s/p PCI (2004) CHB s/p PPM ([facility]) Hypothyroidism H/o HTN H/o DM Arthritis Echo reviewed - EF 30-35%, mild diastolic dysfunction, RV mildly dilated, moderate MR, moderate TR, moderate pulmonary HTN w/RVSP 49mmHg, no pericardial effusion, large left pleural effusion. Plan: Patient currently on levo will hold metoprolol Continue gentle IV diuresis with strict I/Os and close monitoring of renal indices & electrolytes. Not on ASA d/t allergy. Statin held in the setting of elevated LFTs. Pt seen in conjunction with Dr. Griggs, who agrees with the assessment and plan of care. - Patient Problems (1) Acute anemia Current Visit: Yes Status: Acute (2) Acute respiratory failure with hypoxia Current Visit: Yes Status: Acute (3) Bilateral pneumonia Current Visit: Yes Status: Acute Subjective Date of service: 11/13/21 Principal diagnosis: Septic shock; AHRF; Anemia; Pneumonia; L. pleural effusion; HFrEF; Pulm HTN Interval history: Patient remained intubated and is currently awake Sinus 80s with frequent PVCs on monitor Objective Vital Signs Temp Pulse Pulse Pulse Pulse Pulse Pulse 11/13/21 11:42 98.2 F 11/13/21 09:10 83 11/13/21 08:30 92 H 11/13/21 08:15 82 11/13/21 08:00 100.1 F H 82 82 80 78 80 78 11/13/21 07:45 82 11/13/21 07:30 82 11/13/21 07:15 87 11/13/21 07:00 82 11/13/21 06:45 82 11/13/21 06:30 93 H 11/13/21 06:15 90 11/13/21 06:00 94 H 11/13/21 05:45 90 11/13/21 05:30 87 11/13/21 05:15 86 11/13/21 05:00 85 11/13/21 04:45 85 11/13/21 04:30 87 11/13/21 04:15 86 11/13/21 04:08 85 11/13/21 04:00 98.7 F 83 83 11/13/21 03:50 82 11/13/21 03:45 86 11/13/21 03:30 82 11/13/21 03:15 83 11/13/21 03:00 83 11/13/21 02:45 89 11/13/21 02:30 95 H 11/13/21 02:15 89 11/13/21 02:00 89 11/13/21 01:45 87 11/13/21 01:30 82 11/13/21 01:15 85 11/13/21 01:00 85 11/13/21 00:45 81 11/13/21 00:30 84 11/13/21 00:22 82 11/13/21 00:15 81 11/13/21 00:07 79 11/13/21 00:00 98.4 F 78 79 11/12/21 23:45 81 11/12/21 23:30 80 11/12/21 23:15 90 11/12/21 23:01 95 H 11/12/21 22:45 75 11/12/21 22:30 74 11/12/21 22:15 74 11/12/21 22:00 77 11/12/21 21:45 76 11/12/21 21:30 79 11/12/21 21:15 84 11/12/21 20:45 84 11/12/21 20:30 82 11/12/21 20:18 87 11/12/21 20:16 90 11/12/21 20:00 99.2 F 82 82 11/12/21 19:45 80 11/12/21 19:30 84 11/12/21 19:15 83 11/12/21 19:00 87 11/12/21 18:45 76 11/12/21 18:30 78 11/12/21 18:15 78 11/12/21 18:00 78 11/12/21 17:45 77 11/12/21 17:30 82 11/12/21 17:15 83 11/12/21 17:00 86 11/12/21 16:46 98 H 11/12/21 16:30 86 11/12/21 16:15 85 11/12/21 16:00 98.4 F 94 H 87 11/12/21 15:45 89 11/12/21 15:30 91 H 11/12/21 15:15 81 11/12/21 15:00 81 11/12/21 14:46 85 11/12/21 14:30 79 11/12/21 14:15 77 11/12/21 14:00 80 11/12/21 13:45 77 11/12/21 13:30 76 11/12/21 13:15 78 11/12/21 13:00 80 11/12/21 12:45 78 11/12/21 12:30 77 11/12/21 12:15 77 11/12/21 12:10 77 11/12/21 12:00 98.4 F 78 87 Resp BP Pulse Ox 11/13/21 11:42 11/13/21 09:10 101/48 11/13/21 08:30 18 113/58 100 11/13/21 08:15 14 95/48 99 11/13/21 08:00 15 94/47 98 11/13/21 07:45 15 94/48 99 11/13/21 07:30 17 92/44 98 11/13/21 07:15 14 101/52 99 11/13/21 07:00 16 86/43 99 11/13/21 06:45 17 87/39 99 11/13/21 06:30 18 108/50 98 11/13/21 06:15 15 103/49 96 11/13/21 06:00 17 123/62 99 11/13/21 05:45 22 113/55 99 11/13/21 05:30 17 113/53 99 11/13/21 05:15 16 104/52 99 11/13/21 05:00 15 110/55 99 11/13/21 04:45 16 103/51 98 11/13/21 04:30 15 112/57 100 11/13/21 04:15 13 106/56 98 11/13/21 04:08 106/53 98 11/13/21 04:00 17 106/53 99 11/13/21 03:50 11/13/21 03:45 17 108/55 98 11/13/21 03:30 16 95/48 97 11/13/21 03:15 16 102/51 98 11/13/21 03:00 18 103/48 98 11/13/21 02:45 15 104/53 99 11/13/21 02:30 18 108/57 99 11/13/21 02:15 20 106/56 99 11/13/21 02:00 16 107/51 100 11/13/21 01:45 15 103/56 11/13/21 01:30 17 96/45 11/13/21 01:15 16 105/48 11/13/21 01:00 14 98/45 100 11/13/21 00:45 16 109/50 100 11/13/21 00:30 16 106/53 100 11/13/21 00:22 105/54 99 11/13/21 00:15 14 105/54 99 11/13/21 00:07 17 95/46 100 11/13/21 00:00 14 95/46 100 11/12/21 23:45 14 83/42 99 11/12/21 23:30 15 80/38 98 11/12/21 23:15 15 103/59 11/12/21 23:01 13 99/64 73 L 11/12/21 22:45 14 91/38 100 11/12/21 22:30 15 85/37 98 11/12/21 22:15 14 86/37 100 11/12/21 22:00 14 96/42 100 11/12/21 21:45 14 87/37 100 11/12/21 21:30 14 89/38 98 11/12/21 21:15 16 99/45 99 11/12/21 20:45 15 99/43 97 11/12/21 20:30 14 106/43 99 11/12/21 20:18 116/56 100 11/12/21 20:16 22 116/56 99 11/12/21 20:00 14 101/44 96 11/12/21 19:45 14 94/42 99 11/12/21 19:30 16 112/45 100 11/12/21 19:15 12 103/52 99 11/12/21 19:00 12 108/45 99 11/12/21 18:45 16 108/45 98 11/12/21 18:30 16 105/43 99 11/12/21 18:15 20 107/43 97 11/12/21 18:00 18 105/46 99 11/12/21 17:45 17 102/46 99 11/12/21 17:30 22 104/50 11/12/21 17:15 14 113/46 97 11/12/21 17:00 22 146/74 94 11/12/21 16:46 23 146/74 98 11/12/21 16:30 19 127/54 95 11/12/21 16:15 21 125/53 98 11/12/21 16:00 25 H 138/58 97 11/12/21 15:45 17 123/57 95 11/12/21 15:30 16 121/57 95 11/12/21 15:15 16 115/52 95 11/12/21 15:00 18 118/54 99 11/12/21 14:46 14 130/55 100 11/12/21 14:30 25 H 120/54 100 11/12/21 14:15 25 H 115/48 100 11/12/21 14:00 25 H 110/45 100 11/12/21 13:45 25 H 111/46 100 11/12/21 13:30 25 H 109/42 100 11/12/21 13:15 25 H 106/44 100 11/12/21 13:00 25 H 111/41 99 11/12/21 12:45 25 H 104/39 100 11/12/21 12:30 25 H 104/48 100 11/12/21 12:15 25 H 112/43 100 11/12/21 12:10 120/48 100 11/12/21 12:00 25 H 115/46 97 - Physical Examination General: Other (intubated) HEENT: Positive: Normocephaly Neck: Positive: neck supple, trachea midline Cardiac: Positive: Reg Rate and Rhythm Lungs: Positive: Ventilated Respirations Neuro: Positive: Other (intubated) Abdomen: Positive: Soft Skin: Negative: Rash, Wound Musculoskeletal: No Fluid Collection Extremities: Present: lower extr. pulses, edema - Labs and Meds Cardiac Enzymes 11/13/21 Range/Units 06:30 AST 35 (5-40) units/L CBC 11/12/21 11/13/21 Range/Units 14:50 06:30 WBC 19.8 H 21.2 H (4.5-11.0) K/mm3 RBC 3.27 L 3.12 L (3.65-5.03) M/mm3 Hgb 7.1 L 6.8 L (10.1-14.3) gm/dl Hct 24.5 L 23.2 L (30.3-42.9) % Plt Count 145 135 L (140-440) K/mm3 Comprehensive Metabolic Panel 11/12/21 11/13/21 Range/Units 14:50 06:30 Sodium 150 H 149 H (137-145) mmol/L Potassium 3.3 L 4.1 D (3.6-5.0) mmol/L Chloride 112.0 H 60.0 L (98-107) mmol/L Carbon Dioxide 25 26 (22-30) mmol/L BUN 40 H 40 H (7-17) mg/dL Creatinine 0.6 0.6 (0.6-1.2) mg/dL Glucose 151 H 146 H (65-100) mg/dL Calcium 7.4 L 7.3 L (8.4-10.2) mg/dL AST 35 (5-40) units/L ALT 72 H (7-56) units/L Alkaline Phosphatase 100 (35-129) units/L Total Protein 5.2 L (6.3-8.2) g/dL Albumin 2.2 L (3.9-5) g/dL - Imaging and Cardiology EKG: report reviewed, image reviewed Stress echo: report reviewed Echo: report reviewed Cardiac cath: report reviewed - Telemetry EKG Rhythm: Sinus Rhythm - EKG Sinus rhythms and dysrhythmias: sinus rhythm, sinus tachycardia Ventricular dysrhythmias: ventricular premature com - Allied health notes Allied health notes reviewed: nursing
--- NOTE | 2021-11-13 13:15 | Progress Note ---
Assessment and Plan Severe Sepsis POA vs septic shock- 11/03/2021 blood culture: 2 sets positive for GPC Acute respiratory failure with hypoxia, now on MVS Acute microcytic anemia Bilateral pneumonia Left pleural effusion Cardiomyopathy EF 30-35% Moderate pulmonary HTN RVSP 49 - reduced set rate further to 12/min - resume SBT's as tolerated - transfuse 1 unit PRBC - wean Levophed for target MAP > 65 mmHg - continue treatment dose Lovenox - continue care as below otherwise; - Daily SAT and SBT assessment as tolerated - continue to wean supplemental oxygen for target O2 sat's > 90% acutely - VAP bundle addressed - continue lung protective strategies - continue bronchodilators with pulmonary hygiene per RT - wean per pulmonary driven protocols otherwise - avoid nephrotoxins, renally dose all medications - continue accuchecks with glycemic control per SSI (While critically ill target blood glucose of 140-180 mg/dL; avoid hypoglycemia) - sedation prn for target RASS 0 to -1 - antibiotics per ID recommendations - continue to avoid benzodiazepine's, reduce the possibility of delirium - prn analgesia per CPOT score - Maintenance of sleep-wake cycle, avoid delirium - continue enteral nutritional support at goal rate as tolerated - G.I. & VTE prophylaxis - PT/OT/ROM exercises - continue mobility protocols for pressure ulcer prophylaxis - Monitor hemodynamics closely - continue other care per attending / other consultants - discharge planning ongoing concurrently COVID SPECIFIC INTERVENTIONS - COVID-19 PCR negative .... Re-evaluate in am & prn CONDITION: CRITICAL PROGNOSIS: GUARDED CODE STATUS: FULL CODE The high probability of a clinically significant, sudden or life-threatening deterioration of the [respiratory, cardiovascular & neurologic] system(s) required my full and direct attention, intervention and personal management. The aggregate critical care time was [32] minutes without overlap. Time includes spent on; [x] Data Review and interpretation [x] Patient assessment and monitoring of vital signs [x] Documentation [x] Medication orders and management Subjective Date of service: 11/13/21 Principal diagnosis: Septic shock; AHRF; Anemia; Pneumonia; L. pleural effusion; HFrEF; Pulm HTN Interval history: Patient is seen today for: Septic shock; Acute hypoxemic respiratory failure; Anemia; Bilateral pneumonia; Left pleural effusion; HFrEF 30-35%; Pulm HTN RVSP 49 Seen and examined at bedside; 24hour events reviewed; nursing and respiratory care staff consulted; no adverse overnight events reported to me; resting in bed; remains on MVS; serum Hb low at 6.8 g/dl, no gross bleeding reported; no emesis or overt aspiration; chest tube in place; remains on Levophed drip but weaned down to 6 nicole's/min Objective Vital Signs - 12hr 11/13/21 11/13/21 11/13/21 01:30 01:45 02:00 Temperature Pulse Rate 82 87 89 Pulse Rate [ From Monitor] Pulse Rate [ Left Dorsalis Pedis] Pulse Rate [ Left Radial] Pulse Rate [ Right Dorsalis Pedis] Pulse Rate [ Right Radial] Respiratory 17 15 16 Rate Blood Pressure 96/45 103/56 107/51 O2 Sat by Pulse 100 Oximetry 11/13/21 11/13/21 11/13/21 02:15 02:30 02:45 Temperature Pulse Rate 89 95 H 89 Pulse Rate [ From Monitor] Pulse Rate [ Left Dorsalis Pedis] Pulse Rate [ Left Radial] Pulse Rate [ Right Dorsalis Pedis] Pulse Rate [ Right Radial] Respiratory 20 18 15 Rate Blood Pressure 106/56 108/57 104/53 O2 Sat by Pulse 99 99 99 Oximetry 11/13/21 11/13/21 11/13/21 03:00 03:15 03:30 Temperature Pulse Rate 83 83 82 Pulse Rate [ From Monitor] Pulse Rate [ Left Dorsalis Pedis] Pulse Rate [ Left Radial] Pulse Rate [ Right Dorsalis Pedis] Pulse Rate [ Right Radial] Respiratory 18 16 16 Rate Blood Pressure 103/48 102/51 95/48 O2 Sat by Pulse 98 98 97 Oximetry 11/13/21 11/13/21 11/13/21 03:45 03:50 04:00 Temperature 98.7 F Pulse Rate 86 82 83 Pulse Rate [ 83 From Monitor] Pulse Rate [ Left Dorsalis Pedis] Pulse Rate [ Left Radial] Pulse Rate [ Right Dorsalis Pedis] Pulse Rate [ Right Radial] Respiratory 17 17 Rate Blood Pressure 108/55 106/53 O2 Sat by Pulse 98 99 Oximetry 11/13/21 11/13/21 11/13/21 04:08 04:15 04:30 Temperature Pulse Rate 85 86 87 Pulse Rate [ From Monitor] Pulse Rate [ Left Dorsalis Pedis] Pulse Rate [ Left Radial] Pulse Rate [ Right Dorsalis Pedis] Pulse Rate [ Right Radial] Respiratory 13 15 Rate Blood Pressure 106/53 106/56 112/57 O2 Sat by Pulse 98 98 100 Oximetry 11/13/21 11/13/21 11/13/21 04:45 05:00 05:15 Temperature Pulse Rate 85 85 86 Pulse Rate [ From Monitor] Pulse Rate [ Left Dorsalis Pedis] Pulse Rate [ Left Radial] Pulse Rate [ Right Dorsalis Pedis] Pulse Rate [ Right Radial] Respiratory 16 15 16 Rate Blood Pressure 103/51 110/55 104/52 O2 Sat by Pulse 98 99 99 Oximetry 11/13/21 11/13/21 11/13/21 05:30 05:45 06:00 Temperature Pulse Rate 87 90 94 H Pulse Rate [ From Monitor] Pulse Rate [ Left Dorsalis Pedis] Pulse Rate [ Left Radial] Pulse Rate [ Right Dorsalis Pedis] Pulse Rate [ Right Radial] Respiratory 17 22 17 Rate Blood Pressure 113/53 113/55 123/62 O2 Sat by Pulse 99 99 99 Oximetry 11/13/21 11/13/21 11/13/21 06:15 06:30 06:45 Temperature Pulse Rate 90 93 H 82 Pulse Rate [ From Monitor] Pulse Rate [ Left Dorsalis Pedis] Pulse Rate [ Left Radial] Pulse Rate [ Right Dorsalis Pedis] Pulse Rate [ Right Radial] Respiratory 15 18 17 Rate Blood Pressure 103/49 108/50 87/39 O2 Sat by Pulse 96 98 99 Oximetry 11/13/21 11/13/21 11/13/21 07:00 07:15 07:30 Temperature Pulse Rate 82 87 82 Pulse Rate [ From Monitor] Pulse Rate [ Left Dorsalis Pedis] Pulse Rate [ Left Radial] Pulse Rate [ Right Dorsalis Pedis] Pulse Rate [ Right Radial] Respiratory 16 14 17 Rate Blood Pressure 86/43 101/52 92/44 O2 Sat by Pulse 99 99 98 Oximetry 11/13/21 11/13/21 11/13/21 07:45 08:00 08:15 Temperature 100.1 F H Pulse Rate 82 82 82 Pulse Rate [ 82 From Monitor] Pulse Rate [ 80 Left Dorsalis Pedis] Pulse Rate [ 78 Left Radial] Pulse Rate [ 80 Right Dorsalis Pedis] Pulse Rate [ 78 Right Radial] Respiratory 15 15 14 Rate Blood Pressure 94/48 94/47 95/48 O2 Sat by Pulse 99 98 99 Oximetry 11/13/21 11/13/21 11/13/21 08:30 09:10 11:42 Temperature 98.2 F Pulse Rate 92 H 83 Pulse Rate [ From Monitor] Pulse Rate [ Left Dorsalis Pedis] Pulse Rate [ Left Radial] Pulse Rate [ Right Dorsalis Pedis] Pulse Rate [ Right Radial] Respiratory 18 Rate Blood Pressure 113/58 101/48 O2 Sat by Pulse 100 Oximetry 11/13/21 11/13/21 11/13/21 12:00 12:30 12:45 Temperature 98.5 F 98.8 F Pulse Rate 94 H 98 H 103 H Pulse Rate [ From Monitor] Pulse Rate [ Left Dorsalis Pedis] Pulse Rate [ Left Radial] Pulse Rate [ Right Dorsalis Pedis] Pulse Rate [ Right Radial] Respiratory 14 15 Rate Blood Pressure 130/61 130/61 123/60 O2 Sat by Pulse 99 99 100 Oximetry Constitutional: no acute distress (sedated), other (ETT to MVS, frail elderly woman with mildly increased respiratory effort at rest) Eyes: non-icteric ENT: oropharynx moist, oropharyngeal exudate pre (clear frothy), other (ETT 23 cm ELIZABETH) Neck: supple, no lymphadenopathy, no JVD Effort: normal, mildly labored Ascultation: Bilateral: diminished breath sounds, rhonchi, other (Right chest tube) Percussion: Bilateral: not dull Cardiovascular: regular rate and rhythm, other (S1,S2) Gastrointestinal: normoactive bowel sounds Integumentary: normal Extremities: no edema, pink and warm, pulses normal, edema (trace) Neurologic: non-focal exam (grossly), pupils equal and round, CN II-XII normal, unable to assess, other (sedated) Psychiatric: other (sedated) CBC and BMP: 11/13/21 06:30 11/13/21 06:30 ABG, PT/INR, D-dimer: ABG ABG pH 7.586 pH Units (7.350-7.450) H 11/12/21 05:40 ABG pCO2 29.2 mm Hg 11/12/21 05:40 ABG pO2 150.6 mm Hg (80.0-90.0) H 11/12/21 05:40 ABG O2 Saturation 99.1 % (95.0-99.0) H 11/12/21 05:40 PT/INR, D-dimer PT 18.6 Sec. (12.2-14.9) H 11/03/21 22:32 INR 1.40 (0.87-1.13) H 11/03/21 22:32 D-Dimer 2655.00 ng/mlDDU (0-234) H 11/11/21 04:28 Abnormal lab findings: Abnormal Labs 11/03/21 11/03/21 11/03/21 22:32 22:32 22:32 WBC 29.3 H RBC 2.93 L Hgb 6.1 L Hct 21.9 L MCV 75 L MCH 21 L MCHC 28 L RDW 19.7 H Plt Count Seg Neuts % (Manual) 97.0 H Lymphocytes % (Manual) 3.0 L Seg Neutrophils # Man 28.4 H Lymphocytes # (Manual) 0.9 L Monocytes # (Manual) PT 18.6 H INR 1.40 H D-Dimer ABG pH ABG pO2 ABG HCO3 ABG O2 Saturation ABG Base Excess ABG Hemoglobin Oxyhemoglobin Sodium Potassium Chloride Carbon Dioxide 20 L BUN 33 H Glucose 119 H POC Glucose Lactic Acid Calcium 8.3 L Phosphorus Magnesium AST ALT Alkaline Phosphatase Lactate Dehydrogenase Troponin T 0.035 H C-Reactive Protein NT-Pro-B Natriuret Pep Total Protein Albumin LDL Cholesterol Direct 34 L Vitamin B12 Crossmatch 11/03/21 11/03/21 11/03/21 22:32 22:32 23:57 WBC RBC Hgb Hct MCV MCH MCHC RDW Plt Count Seg Neuts % (Manual) Lymphocytes % (Manual) Seg Neutrophils # Man Lymphocytes # (Manual) Monocytes # (Manual) PT INR D-Dimer ABG pH ABG pO2 ABG HCO3 ABG O2 Saturation ABG Base Excess ABG Hemoglobin Oxyhemoglobin Sodium Potassium Chloride Carbon Dioxide BUN Glucose POC Glucose Lactic Acid 3.70 H* Calcium Phosphorus Magnesium AST ALT Alkaline Phosphatase 139 H Lactate Dehydrogenase Troponin T C-Reactive Protein NT-Pro-B Natriuret Pep 7895 H Total Protein Albumin 3.5 L LDL Cholesterol Direct Vitamin B12 Crossmatch See Detail 11/04/21 11/04/21 11/05/21 00:59 13:58 00:51 WBC 27.9 H RBC 3.28 L Hgb 7.3 L Hct 25.5 L MCV 78 L MCH 22 L MCHC 29 L RDW 19.1 H Plt Count Seg Neuts % (Manual) 96.0 H Lymphocytes % (Manual) 2.0 L Seg Neutrophils # Man 26.8 H Lymphocytes # (Manual) 0.6 L Monocytes # (Manual) PT INR D-Dimer ABG pH ABG pO2 ABG HCO3 ABG O2 Saturation ABG Base Excess ABG Hemoglobin Oxyhemoglobin Sodium Potassium Chloride Carbon Dioxide BUN Glucose POC Glucose Lactic Acid Calcium Phosphorus Magnesium AST ALT Alkaline Phosphatase Lactate Dehydrogenase Troponin T 0.051 H D 0.032 H D C-Reactive Protein NT-Pro-B Natriuret Pep Total Protein Albumin LDL Cholesterol Direct Vitamin B12 Crossmatch 11/05/21 11/05/21 11/05/21 06:11 06:11 06:11 WBC 31.8 H RBC 3.57 L Hgb 8.0 L Hct 27.7 L MCV 78 L MCH 22 L MCHC 29 L RDW 19.2 H Plt Count Seg Neuts % (Manual) 91.0 H Lymphocytes % (Manual) 4.5 L Seg Neutrophils # Man 28.9 H Lymphocytes # (Manual) Monocytes # (Manual) 1.1 H PT INR D-Dimer 1494.53 H ABG pH ABG pO2 ABG HCO3 ABG O2 Saturation ABG Base Excess ABG Hemoglobin Oxyhemoglobin Sodium Potassium Chloride Carbon Dioxide 19 L BUN 42 H Glucose 115 H POC Glucose Lactic Acid Calcium Phosphorus Magnesium AST 43 H ALT Alkaline Phosphatase Lactate Dehydrogenase 187 H Troponin T C-Reactive Protein 22.20 H NT-Pro-B Natriuret Pep Total Protein 6.0 L Albumin 3.2 L LDL Cholesterol Direct Vitamin B12 Crossmatch 11/05/21 11/05/21 11/06/21 06:11 12:15 00:30 WBC RBC Hgb Hct MCV MCH MCHC RDW Plt Count Seg Neuts % (Manual) Lymphocytes % (Manual) Seg Neutrophils # Man Lymphocytes # (Manual) Monocytes # (Manual) PT INR D-Dimer ABG pH ABG pO2 ABG HCO3 ABG O2 Saturation ABG Base Excess ABG Hemoglobin Oxyhemoglobin Sodium Potassium Chloride Carbon Dioxide BUN Glucose POC Glucose 113 H 69 L Lactic Acid Calcium Phosphorus Magnesium AST ALT Alkaline Phosphatase Lactate Dehydrogenase Troponin T 0.033 H C-Reactive Protein NT-Pro-B Natriuret Pep Total Protein Albumin LDL Cholesterol Direct Vitamin B12 Crossmatch 11/06/21 11/06/21 11/06/21 05:50 15:50 15:50 WBC 25.5 H RBC 3.62 L Hgb 8.0 L Hct 27.5 L MCV 76 L MCH 22 L MCHC 29 L RDW 19.6 H Plt Count Seg Neuts % (Manual) 92.0 H Lymphocytes % (Manual) 5.0 L Seg Neutrophils # Man 23.5 H Lymphocytes # (Manual) Monocytes # (Manual) PT INR D-Dimer ABG pH 7.305 L ABG pO2 ABG HCO3 15.8 L ABG O2 Saturation ABG Base Excess -9.6 L ABG Hemoglobin 8.6 L Oxyhemoglobin 94.6 L Sodium Potassium Chloride 113.9 H Carbon Dioxide 17 L BUN 56 H Glucose 114 H POC Glucose Lactic Acid Calcium 7.9 L Phosphorus Magnesium AST 1410 H ALT 934 H Alkaline Phosphatase 142 H Lactate Dehydrogenase Troponin T C-Reactive Protein NT-Pro-B Natriuret Pep Total Protein 5.0 L Albumin 2.6 L LDL Cholesterol Direct Vitamin B12 Crossmatch 11/07/21 11/07/21 11/07/21 03:30 04:50 08:07 WBC RBC Hgb Hct MCV MCH MCHC RDW Plt Count Seg Neuts % (Manual) Lymphocytes % (Manual) Seg Neutrophils # Man Lymphocytes # (Manual) Monocytes # (Manual) PT INR D-Dimer ABG pH ABG pO2 296.9 H ABG HCO3 18.1 L ABG O2 Saturation 99.5 H ABG Base Excess -5.9 L ABG Hemoglobin 7.6 L Oxyhemoglobin Sodium Potassium Chloride Carbon Dioxide BUN Glucose POC Glucose 106 H 108 H Lactic Acid Calcium Phosphorus Magnesium AST ALT Alkaline Phosphatase Lactate Dehydrogenase Troponin T C-Reactive Protein NT-Pro-B Natriuret Pep Total Protein Albumin LDL Cholesterol Direct Vitamin B12 Crossmatch 11/08/21 11/08/21 11/08/21 03:10 18:05 23:43 WBC RBC Hgb Hct MCV MCH MCHC RDW Plt Count Seg Neuts % (Manual) Lymphocytes % (Manual) Seg Neutrophils # Man Lymphocytes # (Manual) Monocytes # (Manual) PT INR D-Dimer ABG pH ABG pO2 127.4 H ABG HCO3 ABG O2 Saturation ABG Base Excess -3.4 L ABG Hemoglobin 7.4 L Oxyhemoglobin Sodium Potassium Chloride Carbon Dioxide BUN Glucose POC Glucose 113 H 141 H Lactic Acid Calcium Phosphorus Magnesium AST ALT Alkaline Phosphatase Lactate Dehydrogenase Troponin T C-Reactive Protein NT-Pro-B Natriuret Pep Total Protein Albumin LDL Cholesterol Direct Vitamin B12 Crossmatch 11/08/21 11/08/21 11/09/21 Unknown Unknown 02:00 WBC 14.5 H RBC 3.35 L Hgb 7.5 L 8.1 L Hct 25.4 L 27.6 L MCV 76 L 76 L MCH 23 L 22 L MCHC RDW 19.9 H 19.9 H Plt Count Seg Neuts % (Manual) Lymphocytes % (Manual) Seg Neutrophils # Man Lymphocytes # (Manual) Monocytes # (Manual) PT INR D-Dimer ABG pH ABG pO2 ABG HCO3 ABG O2 Saturation ABG Base Excess ABG Hemoglobin Oxyhemoglobin Sodium 154 H D Potassium 3.3 L Chloride 120.7 H Carbon Dioxide 20 L BUN 38 H Glucose POC Glucose Lactic Acid Calcium 8.3 L Phosphorus Magnesium AST ALT Alkaline Phosphatase Lactate Dehydrogenase Troponin T C-Reactive Protein NT-Pro-B Natriuret Pep Total Protein Albumin LDL Cholesterol Direct Vitamin B12 Crossmatch 11/09/21 11/09/21 11/09/21 02:00 02:31 05:12 WBC RBC Hgb Hct MCV MCH MCHC RDW Plt Count Seg Neuts % (Manual) Lymphocytes % (Manual) Seg Neutrophils # Man Lymphocytes # (Manual) Monocytes # (Manual) PT INR D-Dimer ABG pH 7.479 H ABG pO2 121.3 H ABG HCO3 ABG O2 Saturation ABG Base Excess ABG Hemoglobin 7.3 L Oxyhemoglobin Sodium Potassium Chloride 112.5 H Carbon Dioxide BUN 33 H Glucose 161 H POC Glucose 135 H Lactic Acid Calcium Phosphorus Magnesium AST 251 H ALT 481 H Alkaline Phosphatase Lactate Dehydrogenase Troponin T C-Reactive Protein NT-Pro-B Natriuret Pep Total Protein 5.0 L Albumin 2.8 L LDL Cholesterol Direct Vitamin B12 Crossmatch 11/09/21 11/09/21 11/09/21 11:33 16:32 23:28 WBC RBC Hgb Hct MCV MCH MCHC RDW Plt Count Seg Neuts % (Manual) Lymphocytes % (Manual) Seg Neutrophils # Man Lymphocytes # (Manual) Monocytes # (Manual) PT INR D-Dimer ABG pH ABG pO2 ABG HCO3 ABG O2 Saturation ABG Base Excess ABG Hemoglobin Oxyhemoglobin Sodium Potassium Chloride Carbon Dioxide BUN Glucose POC Glucose 132 H 133 H 143 H Lactic Acid Calcium Phosphorus Magnesium AST ALT Alkaline Phosphatase Lactate Dehydrogenase Troponin T C-Reactive Protein NT-Pro-B Natriuret Pep Total Protein Albumin LDL Cholesterol Direct Vitamin B12 Crossmatch 11/10/21 11/10/21 11/10/21 04:00 04:00 05:35 WBC 16.0 H RBC 3.61 L Hgb 8.0 L Hct 27.1 L MCV 75 L MCH 22 L MCHC RDW 20.4 H Plt Count Seg Neuts % (Manual) Lymphocytes % (Manual) Seg Neutrophils # Man Lymphocytes # (Manual) Monocytes # (Manual) PT INR D-Dimer ABG pH ABG pO2 ABG HCO3 ABG O2 Saturation ABG Base Excess ABG Hemoglobin Oxyhemoglobin Sodium 149 H Potassium Chloride 114.1 H Carbon Dioxide BUN 31 H Glucose 148 H POC Glucose 132 H Lactic Acid Calcium 8.2 L Phosphorus Magnesium AST ALT Alkaline Phosphatase Lactate Dehydrogenase Troponin T C-Reactive Protein NT-Pro-B Natriuret Pep Total Protein Albumin LDL Cholesterol Direct Vitamin B12 Crossmatch 11/10/21 11/10/21 11/10/21 11:31 14:08 15:35 WBC RBC Hgb Hct MCV MCH MCHC RDW Plt Count Seg Neuts % (Manual) Lymphocytes % (Manual) Seg Neutrophils # Man Lymphocytes # (Manual) Monocytes # (Manual) PT INR D-Dimer ABG pH ABG pO2 126.6 H ABG HCO3 ABG O2 Saturation ABG Base Excess ABG Hemoglobin 7.4 L Oxyhemoglobin Sodium Potassium Chloride Carbon Dioxide BUN Glucose POC Glucose 147 H Lactic Acid Calcium Phosphorus Magnesium AST ALT Alkaline Phosphatase Lactate Dehydrogenase Troponin T C-Reactive Protein NT-Pro-B Natriuret Pep Total Protein Albumin LDL Cholesterol Direct Vitamin B12 1823 H Crossmatch 11/10/21 11/11/21 11/11/21 17:53 00:55 04:28 WBC RBC Hgb Hct MCV MCH MCHC RDW Plt Count Seg Neuts % (Manual) Lymphocytes % (Manual) Seg Neutrophils # Man Lymphocytes # (Manual) Monocytes # (Manual) PT INR D-Dimer ABG pH ABG pO2 ABG HCO3 ABG O2 Saturation ABG Base Excess ABG Hemoglobin Oxyhemoglobin Sodium 149 H Potassium Chloride 112.2 H Carbon Dioxide BUN 34 H Glucose 148 H POC Glucose 140 H 145 H Lactic Acid Calcium 7.9 L Phosphorus Magnesium AST 53 H ALT 203 H Alkaline Phosphatase Lactate Dehydrogenase Troponin T C-Reactive Protein NT-Pro-B Natriuret Pep Total Protein 4.9 L Albumin 2.6 L LDL Cholesterol Direct Vitamin B12 Crossmatch 11/11/21 11/11/21 11/11/21 04:28 04:28 05:28 WBC 20.9 H RBC 3.47 L Hgb 7.5 L Hct 26.0 L MCV 75 L MCH 22 L MCHC 29 L RDW 21.6 H Plt Count 132 L Seg Neuts % (Manual) Lymphocytes % (Manual) Seg Neutrophils # Man Lymphocytes # (Manual) Monocytes # (Manual) PT INR D-Dimer 2655.00 H ABG pH ABG pO2 ABG HCO3 ABG O2 Saturation ABG Base Excess ABG Hemoglobin Oxyhemoglobin Sodium Potassium Chloride Carbon Dioxide BUN Glucose POC Glucose 154 H Lactic Acid Calcium Phosphorus Magnesium AST ALT Alkaline Phosphatase Lactate Dehydrogenase Troponin T C-Reactive Protein NT-Pro-B Natriuret Pep Total Protein Albumin LDL Cholesterol Direct Vitamin B12 Crossmatch 11/11/21 11/11/21 11/12/21 12:38 18:13 00:14 WBC RBC Hgb Hct MCV MCH MCHC RDW Plt Count Seg Neuts % (Manual) Lymphocytes % (Manual) Seg Neutrophils # Man Lymphocytes # (Manual) Monocytes # (Manual) PT INR D-Dimer ABG pH ABG pO2 ABG HCO3 ABG O2 Saturation ABG Base Excess ABG Hemoglobin Oxyhemoglobin Sodium Potassium Chloride Carbon Dioxide BUN Glucose POC Glucose 137 H 108 H 137 H Lactic Acid Calcium Phosphorus Magnesium AST ALT Alkaline Phosphatase Lactate Dehydrogenase Troponin T C-Reactive Protein NT-Pro-B Natriuret Pep Total Protein Albumin LDL Cholesterol Direct Vitamin B12 Crossmatch 11/12/21 11/12/21 11/12/21 05:40 06:24 11:12 WBC RBC Hgb Hct MCV MCH MCHC RDW Plt Count Seg Neuts % (Manual) Lymphocytes % (Manual) Seg Neutrophils # Man Lymphocytes # (Manual) Monocytes # (Manual) PT INR D-Dimer ABG pH 7.586 H ABG pO2 150.6 H ABG HCO3 27.2 H ABG O2 Saturation 99.1 H ABG Base Excess 5.2 H ABG Hemoglobin 7.5 L Oxyhemoglobin Sodium Potassium Chloride Carbon Dioxide BUN Glucose POC Glucose 132 H 140 H Lactic Acid Calcium Phosphorus Magnesium AST ALT Alkaline Phosphatase Lactate Dehydrogenase Troponin T C-Reactive Protein NT-Pro-B Natriuret Pep Total Protein Albumin LDL Cholesterol Direct Vitamin B12 Crossmatch 11/12/21 11/12/21 11/12/21 14:50 14:50 17:13 WBC 19.8 H RBC 3.27 L Hgb 7.1 L Hct 24.5 L MCV 75 L MCH 22 L MCHC 29 L RDW 22.3 H Plt Count Seg Neuts % (Manual) Lymphocytes % (Manual) Seg Neutrophils # Man Lymphocytes # (Manual) Monocytes # (Manual) PT INR D-Dimer ABG pH ABG pO2 ABG HCO3 ABG O2 Saturation ABG Base Excess ABG Hemoglobin Oxyhemoglobin Sodium 150 H Potassium 3.3 L Chloride 112.0 H Carbon Dioxide BUN 40 H Glucose 151 H POC Glucose 121 H Lactic Acid Calcium 7.4 L Phosphorus 1.70 L Magnesium 1.40 L AST ALT Alkaline Phosphatase Lactate Dehydrogenase Troponin T C-Reactive Protein NT-Pro-B Natriuret Pep Total Protein Albumin LDL Cholesterol Direct Vitamin B12 Crossmatch 11/12/21 11/13/21 11/13/21 23:19 05:34 06:30 WBC RBC Hgb Hct MCV MCH MCHC RDW Plt Count Seg Neuts % (Manual) Lymphocytes % (Manual) Seg Neutrophils # Man Lymphocytes # (Manual) Monocytes # (Manual) PT INR D-Dimer ABG pH ABG pO2 ABG HCO3 ABG O2 Saturation ABG Base Excess ABG Hemoglobin Oxyhemoglobin Sodium 149 H Potassium Chloride 60.0 L Carbon Dioxide BUN 40 H Glucose 146 H POC Glucose 113 H 132 H Lactic Acid Calcium 7.3 L Phosphorus Magnesium 2.40 H AST ALT 72 H Alkaline Phosphatase Lactate Dehydrogenase Troponin T C-Reactive Protein NT-Pro-B Natriuret Pep Total Protein 5.2 L Albumin 2.2 L LDL Cholesterol Direct Vitamin B12 Crossmatch 11/13/21 11/13/21 11/13/21 06:30 08:30 11:19 WBC 21.2 H RBC 3.12 L Hgb 6.8 L Hct 23.2 L MCV 74 L MCH 22 L MCHC 29 L RDW 22.2 H Plt Count 135 L Seg Neuts % (Manual) Lymphocytes % (Manual) Seg Neutrophils # Man Lymphocytes # (Manual) Monocytes # (Manual) PT INR D-Dimer ABG pH ABG pO2 ABG HCO3 ABG O2 Saturation ABG Base Excess ABG Hemoglobin Oxyhemoglobin Sodium Potassium Chloride Carbon Dioxide BUN Glucose POC Glucose 136 H Lactic Acid Calcium Phosphorus Magnesium AST ALT Alkaline Phosphatase Lactate Dehydrogenase Troponin T C-Reactive Protein NT-Pro-B Natriuret Pep Total Protein Albumin LDL Cholesterol Direct Vitamin B12 Crossmatch See Detail Chest x-ray: pending Allied health notes reviewed: nursing
--- NOTE | 2021-11-13 14:00 | Progress Note ---
Assessment and Plan Cultures: SARS CoV2 PCR: negative 11/03/2021 blood culture: Group B streptococcus 11/04/2021 blood culture: no growth 11/11/2021 blood culture: No growth A/P: 81-year-old female with diabetes mellitus, hypertension, arthritis was admitted with shortness of breath. She was also having fever: #Severe sepsis with shock, secondary to bilateral pneumonia: likely from Group B Strep. COVID-19 negative #Group B Strep bacteremia: Likely secondary to above, no other source identified, other possibility is mild lower extremity cellulitis. Does have indwelling cardiac device, per patient it is a pacemaker. TTE showed no valvular or lead vegetations #Acute hypoxic respiratory failure: Secondary to above. Intubated, on the vent. Recs: -Given fevers and worsening white count escalated to cefepime -Empiric vancomycin pending blood culture results. -Completed synergistic clindamycin -overall guarded prognosis Mahogany Montes MD [facility] O: [phone] F: [phone] Subjective Date of service: 11/13/21 Principal diagnosis: Septic shock; AHRF; Anemia; Pneumonia; L. pleural effusion; HFrEF; Pulm HTN Interval history: Afebrile overnight, white count remains elevated at 21.2. Objective - Exam Narrative Exam: Physical exam deferred to reduce risk of transmission of COVID-19. Please refer to primary team's note. - Constitutional Vitals: Vital Signs Temp Pulse Resp BP Pulse Ox 98.5 F 83 14 102/48 98 11/13/21 13:45 11/13/21 13:45 11/13/21 13:45 11/13/21 13:45 11/13/21 13:45 Temperature -Last 24 Hours Temperature 98.5 F Temperature 99 F Temperature 98.8 F Temperature 98.5 F Temperature 98.2 F Temperature 100.1 F Temperature 100.1 F Temperature 98.7 F Temperature 98.4 F Temperature 99.2 F Temperature 98.4 F - Labs CBC & Chem 7: 11/13/21 06:30 11/13/21 06:30 Labs: Abnormal lab results 11/12/21 11/12/21 11/12/21 Range/Units 14:50 14:50 17:13 WBC 19.8 H (4.5-11.0) K/mm3 RBC 3.27 L (3.65-5.03) M/mm3 Hgb 7.1 L (10.1-14.3) gm/dl Hct 24.5 L (30.3-42.9) % MCV 75 L (79-97) fl MCH 22 L (28-32) pg MCHC 29 L (30-34) % RDW 22.3 H (13.2-15.2) % Plt Count (140-440) K/mm3 Sodium 150 H (137-145) mmol/L Potassium 3.3 L (3.6-5.0) mmol/L Chloride 112.0 H (98-107) mmol/L BUN 40 H (7-17) mg/dL Glucose 151 H (65-100) mg/dL POC Glucose 121 H (70-105) mg/dL Calcium 7.4 L (8.4-10.2) mg/dL Phosphorus 1.70 L (2.5-4.5) mg/dL Magnesium 1.40 L (1.7-2.3) mg/dL ALT (7-56) units/L Total Protein (6.3-8.2) g/dL Albumin (3.9-5) g/dL Crossmatch 11/12/21 11/13/21 11/13/21 Range/Units 23:19 05:34 06:30 WBC (4.5-11.0) K/mm3 RBC (3.65-5.03) M/mm3 Hgb (10.1-14.3) gm/dl Hct (30.3-42.9) % MCV (79-97) fl MCH (28-32) pg MCHC (30-34) % RDW (13.2-15.2) % Plt Count (140-440) K/mm3 Sodium 149 H (137-145) mmol/L Potassium (3.6-5.0) mmol/L Chloride 60.0 L (98-107) mmol/L BUN 40 H (7-17) mg/dL Glucose 146 H (65-100) mg/dL POC Glucose 113 H 132 H (70-105) mg/dL Calcium 7.3 L (8.4-10.2) mg/dL Phosphorus (2.5-4.5) mg/dL Magnesium 2.40 H (1.7-2.3) mg/dL ALT 72 H (7-56) units/L Total Protein 5.2 L (6.3-8.2) g/dL Albumin 2.2 L (3.9-5) g/dL Crossmatch 11/13/21 11/13/21 11/13/21 Range/Units 06:30 08:30 11:19 WBC 21.2 H (4.5-11.0) K/mm3 RBC 3.12 L (3.65-5.03) M/mm3 Hgb 6.8 L (10.1-14.3) gm/dl Hct 23.2 L (30.3-42.9) % MCV 74 L (79-97) fl MCH 22 L (28-32) pg MCHC 29 L (30-34) % RDW 22.2 H (13.2-15.2) % Plt Count 135 L (140-440) K/mm3 Sodium (137-145) mmol/L Potassium (3.6-5.0) mmol/L Chloride (98-107) mmol/L BUN (7-17) mg/dL Glucose (65-100) mg/dL POC Glucose 136 H (70-105) mg/dL Calcium (8.4-10.2) mg/dL Phosphorus (2.5-4.5) mg/dL Magnesium (1.7-2.3) mg/dL ALT (7-56) units/L Total Protein (6.3-8.2) g/dL Albumin (3.9-5) g/dL Crossmatch See Detail
[2021-11-13] MEDS: VANCOMYCIN 1,250 MG in SODIUM CHLORIDE 0.9% 250ML 250 ML IV SCH (15:15)
--- NOTE | 2021-11-13 15:52 | Progress Note ---
<MAYCOLJASBIR H. - Last Filed: 11/13/21 15:48> Assessment and Plan Assessment and plan: This is a 81-year-old female with known history of diabetes mellitus, hypertension, PPM, and arthritis admitted for sepsis and acute hypoxia respiratory failure 2/2 bilateral pneumonia requiring intubation and ventilatory support Assessment and Plan Septic shock, POA, bilateral pneumonia, bacteremia -Infectious disease consulted, appreciate recommendations -COVID-19 PCR negative -Presented with fevers, leukocytosis and hypotension -11/04 blood cultures positive with a group B strep bacteremia however repeat blood cultures on the with no growth to date -Echo showed no evidence of vegetation -ABX therapy with ceftriaxone and clindamycin -Completed clindamycin, 2 weeks of ceftriaxone planned (11/04) -Given persistent leukocytosis and fever, escalated to cefepime by ID -Monitor WBC and fever curve -Recultured on 11/11 -Follow-up culture -Bedside bronchoscopy for mucous plug on CXR 11/11 Acute hypoxic respiratory failure secondary to bilateral pneumonia, bilateral pleural effusion. Right pneomothorax -COVID-19 PCR negative -Intubated on 11/06 with 6.00 ETT at 18 at the lip -A.m. vent settings: Assist-control rate 16, tidal volume 350, PEEP 6, FiO2 40% -See RT notes for titration -11/11: Changed over bougie to 7.50 ETT at 22 at the lip -Current vent settings AC, rate 25, tidal and 400, FiO2 100%, PEEP 6 -S/p bedside bronchoscopy on 11/11 -Post bronc noted to have transient hypotension-> given LR bolus, Levophed drip -Complicated by pneumothorax -S/p chest tube placement for right pneumothorax -Chest tube to wall suction -[address] drainage 0 ml -ABG/CXR per CCM -VAP bundle -Right chest wall ultrasound shows pleural effusion -SPO2 monitoring -Mucomyst every 8 -Albuterol every 8 Acute DVT in the right external iliac vein, common femoral vein, superior aspect of femoral vein -Evidenced on bilateral upper lower extremity ultrasound -Therapeutic Lovenox Hypernatremia -increase in FWF -Trend sodium Hypokalemia, hypomagnesemia, hypophosphatemia (resolved) -Repleted with K-Phos and magnesium -Trend BMP Hypotension, Heart failure with reduced EF, h/o chronic heart block s/p PPM -Remains on vasopressor support with levophed -map goal >65 -11/04 echocardiogram shows EF 30 to 35% -Cardiology consulted, appreciate recommendations -Continue beta-charleen -Not on aspirin due to allergy -Statins on hold due to elevated LFTs -Blood pressure monitor per protocol Acute encephalopathy -Neurology consulted, appreciate recommendations -CT brain showed no acute events -EEG pending -MRI brain and possible-> patient has metal in her body -Repeat CT head pending -Avoid delirium -Reorientation as needed -TSH/B12/ammonia level pending Acute microcytic anemia -S/p 1 unit PRBC -Trend CBC -Transfuse for hemoglobin less than 7 -noted to be 6.8 today -given 1 unit prbc today Transaminitis -Nutrition consult for tube feeding -BR: Senokot -KUB ordered yesterday was discontinued by tech. Will not reorder due to recorded BM 11/12 -24-hour -64 ml -Trend LFTs h/o HTN/CAD s/p PCI (2004) -Statin on hold due to transaminitis -Hold home antihypertensive and resume as tolerated -Blood pressure monitoring per protocol h/o DM -SSI -Accu-Cheks every 6 -Avoid hypoglycemia h/o hypothyroidism -Continue home Synthroid DVT/GI prophylaxis -Therapeutic Lovenox, PPI The high probability of a clinically significant, sudden or life threatening deterioration of the [multi] system(s) required my full and direct attention, intervention and personal management. The aggregate critical care time was [60] minutes. This time is in addition to time spent performing reported procedures but includes the following: [x] Data Review and interpretation [x] Patient assessment and monitoring of vital signs [x] Documentation [x] Medication orders and management Disposition Plan: icu Total Time Spent with Patient (Minutes): 60 History Interval history: This is an 82-year-old female with DM, HTN , PPM and arthritis who presented to the emergency department on 11/04 for shortness of breath ongoing for the past 3 days, cough and according to family a fever of 102.2. Upon arrival of EMS patient was found to be tachypneic and hypoxic with SPO2 of 76% on room air which later improved to 88% on nonrebreather. Work-up in the emergency department included a CXR which showed bilateral interstitial pulmonary edema with bilateral pleural effusions and bibasilar opacities, leukocytosis and anemia with a hemoglobin of 6.1. Patient was admitted to the hospitalist service with acute anemia, acute hypoxic respiratory failure, bilateral pneumonia and COVID-19 PUI with consults to pulmonology, infectious disease and later cardiology. Patient was eventually intubated in the emergency department on 11/06. Hospital Course to date: 11/04/2021: Empiric therapy with iv levaquin/vancomycin. COVID PCR pending. Will consult ID. PCCM consulted, will follow recs. Hypotensive this AM, ordered bolus and fluids at 150 cc/hr. May require pressor support if bp does not improve. 11/05/2021: GBS on bcx +, currently on rocephin IV. Currently on bipap due to res piratory distress overnight. Worsening BL opacities on CXR. May be volume overload vs pneumonia. Unfortunately bp too low for lasix at this point. WIll continue levophed and bipap. Once able to tolerate, may do trial of albumin/lasix. Call attempt made to Niraj, no response. Will try again tomorrow to update. 11/06/2021: Decompensated overnight requiring intubation. CXR shows worsening i nterstitial infiltrates. Currenlty on dopamine, levophed, vasopressin. PICC line ordered. Advised RN to place gamble for I/O monitoring. Would benefit from diuresis but very volume overloaded. Prognosis guarded 11/08: Off sedation this am, remains unresponsive only grimace to pain. Hold all sedatives agents for now, patient is off pressors this am. Hypernatremia from today's lab- D5W X1bag, and low K repleted, repeat lab in the am. Severe constipation also noted from KUB, BR added. 11/09: Sudden SPO2 drop in the 60s this am. Patient was manually bagged and deep suctioned. Patient is currently stable on the vent, repeat CXR with no significant change. D/w CCM Mucomyst and brochodilator added. Patient mentation is unchanged, continue to hold off on sedative agents. Neurology consulted. 11/10: Acute DVT noted on bilateral lower extremity Doppler ultrasound therefore she was started on Lovenox treatment dose. Failed SBT. Hypernatremia and hyperchloremia noted, free water flush adjusted. 11/11: Patient noted to be febrile with increasing of the cytosis, UA/BC sent and CXR ordered. ID escalated antibiotics to cefepime. CXR demonstrated mucous plug, bedside bronchoscopy was performed and O ETT was changed over bougie from 6 cm to 7.5. Patient was noted to have a pneumothorax postprocedure and chest tube was placed. Family updated by CCM. Free water flush increased and will add Jaswant supplementation. 11/12: Patient not noted to follow commands, hypernatremia worsen/persist, in creasing free water flush, potassium and magnesium and phosphorus repleted. Hemoglobin noted to be 7.1/24.5 from 7.03/12 yesterday. We will continue to trend and monitor. Vent changes per CCM. Repeat CXR showed no residual pneumothorax. Consider waterseal tomorrow. Given persistent leukocytosis antibiotics escalated to cefepime per ID. 11/13: Remains on cefepime and vancomycin, vent changes per CCM. Anemia noted and given 1 unit PRBC. And beta-charleen held in setting of Levophed drip infu sing. Remains on fentanyl drip. Hospitalist Physical - Constitutional Vitals: Temp Pulse Resp BP Pulse Ox 98.8 F 80 15 103/45 98 11/13/21 14:30 11/13/21 14:30 11/13/21 14:30 11/13/21 14:30 11/13/21 14:30 General appearance: Present: no acute distress, other (On the vent) - EENT Eyes: Present: PERRL, EOM intact ENT: hearing intact, clear oral mucosa, dentition normal - Neck Neck: Present: normal ROM - Respiratory Respiratory effort: normal Respiratory: bilateral: diminished - Cardiovascular Rhythm: regular Heart Sounds: Present: S1 & S2. Absent: systolic murmur, diastolic murmur - Extremities Extremities: no ischemia, pulses intact, pulses symmetrical, No edema, normal temperature, normal color Peripheral Pulses: within normal limits - Abdominal General gastrointestinal: soft, non-tender, non-distended, normal bowel sounds - Integumentary Integumentary: Present: warm, dry - Psychiatric Psychiatric: cooperative - Neurologic Neurologic: CNII-XII intact, no focal deficits, moves all extremities - Allied Health Allied health notes reviewed: nursing, RT, social work HEART Score - HEART Score Troponin: Troponin T 0.033 ng/mL (0.00-0.029) H 11/05/21 06:11 Results - Labs CBC & Chem 7: 11/13/21 06:30 11/13/21 06:30 Labs: Laboratory Last Values WBC 21.2 K/mm3 (4.5-11.0) H 11/13/21 06:30 RBC 3.12 M/mm3 (3.65-5.03) L 11/13/21 06:30 Hgb 6.8 gm/dl (10.1-14.3) L 11/13/21 06:30 Hct 23.2 % (30.3-42.9) L 11/13/21 06:30 MCV 74 fl (79-97) L 11/13/21 06:30 MCH 22 pg (28-32) L 11/13/21 06:30 MCHC 29 % (30-34) L 11/13/21 06:30 RDW 22.2 % (13.2-15.2) H 11/13/21 06:30 Plt Count 135 K/mm3 (140-440) L 11/13/21 06:30 Add Manual Diff Complete 11/06/21 15:50 Total Counted 100 11/06/21 15:50 Seg Neutrophils % Milieu Coordinator 11/06/21 15:50 Seg Neuts % (Manual) 92.0 % (40.0-70.0) H 11/06/21 15:50 Band Neutrophils % 0 % 11/06/21 15:50 Lymphocytes % (Manual) 5.0 % (13.4-35.0) L 11/06/21 15:50 Reactive Lymphs % (Man) 0 % 11/06/21 15:50 Monocytes % (Manual) 3.0 % (0.0-7.3) 11/06/21 15:50 Eosinophils % (Manual) 0 % (0.0-4.3) 11/06/21 15:50 Basophils % (Manual) 0 % (0.0-1.8) 11/06/21 15:50 Metamyelocytes % 0 % 11/06/21 15:50 Myelocytes % 0 % 11/06/21 15:50 Promyelocytes % 0 % 11/06/21 15:50 Blast Cells % 0 % 11/06/21 15:50 Nucleated RBC % Not Reportable 11/06/21 15:50 Seg Neutrophils # Man 23.5 K/mm3 (1.8-7.7) H 11/06/21 15:50 Band Neutrophils # 0.0 K/mm3 11/06/21 15:50 Lymphocytes # (Manual) 1.3 K/mm3 (1.2-5.4) 11/06/21 15:50 Abs React Lymphs (Man) 0.0 K/mm3 11/06/21 15:50 Monocytes # (Manual) 0.8 K/mm3 (0.0-0.8) 11/06/21 15:50 Eosinophils # (Manual) 0.0 K/mm3 (0.0-0.4) 11/06/21 15:50 Basophils # (Manual) 0.0 K/mm3 (0.0-0.1) 11/06/21 15:50 Metamyelocytes # 0.0 K/mm3 11/06/21 15:50 Myelocytes # 0.0 K/mm3 11/06/21 15:50 Promyelocytes # 0.0 K/mm3 11/06/21 15:50 Blast Cells # 0.0 K/mm3 11/06/21 15:50 WBC Morphology Not Reportable 11/06/21 15:50 Hypersegmented Neuts Not Reportable 11/06/21 15:50 Hyposegmented Neuts Not Reportable 11/06/21 15:50 Hypogranular Neuts Not Reportable 11/06/21 15:50 Smudge Cells Not Reportable 11/06/21 15:50 Toxic Granulation Not Reportable 11/06/21 15:50 Toxic Vacuolation Not Reportable 11/06/21 15:50 Dohle Bodies Not Reportable 11/06/21 15:50 Pelger-Huet Anomaly Not Reportable 11/06/21 15:50 Irina Rods Not Reportable 11/06/21 15:50 Platelet Estimate Consistent w auto 11/06/21 15:50 Clumped Platelets Not Reportable 11/06/21 15:50 Plt Clumps, EDTA Not Reportable 11/06/21 15:50 Large Platelets Not Reportable 11/06/21 15:50 Giant Platelets Not Reportable 11/06/21 15:50 Platelet Satelliting Not Reportable 11/06/21 15:50 Plt Morphology Comment Not Reportable 11/06/21 15:50 RBC Morphology Not Reportable 11/06/21 15:50 Dimorphic RBCs Not Reportable 11/06/21 15:50 Polychromasia Not Reportable 11/06/21 15:50 Hypochromasia 2+ 11/06/21 15:50 Poikilocytosis Not Reportable 11/06/21 15:50 Anisocytosis 1+ 11/06/21 15:50 Microcytosis Not Reportable 11/06/21 15:50 Macrocytosis Not Reportable 11/06/21 15:50 Spherocytes Not Reportable 11/06/21 15:50 Pappenheimer Bodies Not Reportable 11/06/21 15:50 Sickle Cells Not Reportable 11/06/21 15:50 Target Cells Not Reportable 11/06/21 15:50 Tear Drop Cells Not Reportable 11/06/21 15:50 Ovalocytes Not Reportable 11/06/21 15:50 Helmet Cells Not Reportable 11/06/21 15:50 Odonnell-Arpin Bodies Not Reportable 11/06/21 15:50 [place] Rings Not Reportable 11/06/21 15:50 May Cells Not Reportable 11/06/21 15:50 Bite Cells Not Reportable 11/06/21 15:50 Crenated Cell Not Reportable 11/06/21 15:50 Elliptocytes Not Reportable 11/06/21 15:50 Acanthocytes (Spur) Not Reportable 11/06/21 15:50 Rouleaux Not Reportable 11/06/21 15:50 Hemoglobin C Crystals Not Reportable 11/06/21 15:50 Schistocytes Not Reportable 11/06/21 15:50 Malaria parasites Not Reportable 11/06/21 15:50 Godfrey Bodies Not Reportable 11/06/21 15:50 Hem Pathologist Commnt No 11/06/21 15:50 PT 18.6 Sec. (12.2-14.9) H 11/03/21 22:32 INR 1.40 (0.87-1.13) H 11/03/21 22:32 APTT 28.9 Sec. (24.2-36.6) 11/03/21 22:32 D-Dimer 2655.00 ng/mlDDU (0-234) H 11/11/21 04:28 ABG pH 7.586 pH Units (7.350-7.450) H 11/12/21 05:40 ABG pCO2 29.2 mm Hg 11/12/21 05:40 ABG pO2 150.6 mm Hg (80.0-90.0) H 11/12/21 05:40 ABG HCO3 27.2 mmol/L (20.0-26.0) H 11/12/21 05:40 ABG O2 Saturation 99.1 % (95.0-99.0) H 11/12/21 05:40 ABG O2 Content 10.6 (0.0-44) 11/12/21 05:40 ABG Base Excess 5.2 mmol/L (-2.0-3.0) H 11/12/21 05:40 ABG Hemoglobin 7.5 gm/dl (12.0-16.0) L 11/12/21 05:40 ABG Carboxyhemoglobin 1.7 % (0.0-5.0) 11/12/21 05:40 ABG Methemoglobin 0.5 % (0.0-1.5) 11/12/21 05:40 Oxyhemoglobin 96.9 % (95.0-99.0) 11/12/21 05:40 FiO2 50 % 11/12/21 05:40 Sodium 149 mmol/L (137-145) H 11/13/21 06:30 Potassium 4.1 mmol/L (3.6-5.0) D 11/13/21 06:30 Chloride 60.0 mmol/L (98-107) L 11/13/21 06:30 Carbon Dioxide 26 mmol/L (22-30) 11/13/21 06:30 Anion Gap 15 mmol/L 11/13/21 06:30 BUN 40 mg/dL (7-17) H 11/13/21 06:30 Creatinine 0.6 mg/dL (0.6-1.2) 11/13/21 06:30 Estimated GFR > 60 ml/min 11/13/21 06:30 BUN/Creatinine Ratio 67 % 11/13/21 06:30 Glucose 146 mg/dL (65-100) H 11/13/21 06:30 POC Glucose 136 mg/dL (70-105) H 11/13/21 11:19 Lactic Acid 3.70 mmol/L (0.7-2.0) H* 11/03/21 22:32 Calcium 7.3 mg/dL (8.4-10.2) L 11/13/21 06:30 Phosphorus 4.40 mg/dL (2.5-4.5) D 11/13/21 06:30 Magnesium 2.40 mg/dL (1.7-2.3) H 11/13/21 06:30 Ferritin 52.6 ng/mL (10.0-200.0) 11/05/21 06:11 Total Bilirubin < 0.20 mg/dL (0.1-1.2) 11/13/21 06:30 Direct Bilirubin < 0.2 mg/dL (0-0.2) 11/11/21 04:28 Indirect Bilirubin 0.1 mg/dL 11/11/21 04:28 AST 35 units/L (5-40) 11/13/21 06:30 ALT 72 units/L (7-56) H 11/13/21 06:30 Alkaline Phosphatase 100 units/L (35-129) 11/13/21 06:30 Ammonia 42.0 umol/L (25-60) 11/10/21 14:08 Lactate Dehydrogenase 187 units/L (91-180) H 11/05/21 06:11 Troponin T 0.033 ng/mL (0.00-0.029) H 11/05/21 06:11 C-Reactive Protein 22.20 mg/dL (0.00-1.30) H 11/05/21 06:11 NT-Pro-B Natriuret Pep 7895 pg/mL (0-900) H 11/03/21 22:32 Total Protein 5.2 g/dL (6.3-8.2) L 11/13/21 06:30 Albumin 2.2 g/dL (3.9-5) L 11/13/21 06:30 Albumin/Globulin Ratio 0.7 % 11/13/21 06:30 Triglycerides 66 mg/dL (2-149) 11/03/21 22:32 Cholesterol 80 mg/dL (50-199) 11/03/21 22:32 LDL Cholesterol Direct 34 mg/dL (50-130) L 11/03/21 22:32 HDL Cholesterol 42 mg/dL (40-59) 11/03/21 22:32 Cholesterol/HDL Ratio 1.90 % 11/03/21 22:32 Vitamin B12 1823 pg/mL (211-911) H 11/10/21 14:08 TSH 1.510 mlU/mL (0.270-4.200) 11/10/21 14:08 Urine Color Yellow (Yellow) 11/11/21 09:00 Urine Turbidity Slightly-cloudy (Clear) 11/11/21 09:00 Urine pH 5.0 (5.0-7.0) 11/11/21 09:00 Ur Specific [place] 1.009 (1.003-1.030) 11/11/21 09:00 Urine Protein <15 mg/dl mg/dL (Negative) 11/11/21 09:00 Urine Glucose (UA) Neg mg/dL (Negative) 11/11/21 09:00 Urine Ketones Neg mg/dL (Negative) 11/11/21 09:00 Urine Blood Mod (Negative) 11/11/21 09:00 Urine Nitrite Neg (Negative) 11/11/21 09:00 Urine Bilirubin Neg (Negative) 11/11/21 09:00 Urine Urobilinogen < 2.0 mg/dL (<2.0) 11/11/21 09:00 Ur Leukocyte Esterase Neg (Negative) 11/11/21 09:00 Urine WBC (Auto) < 1.0 /HPF (0.0-6.0) 11/11/21 09:00 Urine RBC (Auto) < 1.0 /HPF (0.0-6.0) 11/11/21 09:00 Coronavirus (PCR) Negative (Negative) 11/10/21 08:30 Blood Type O POSITIVE 11/13/21 08:30 Antibody Screen Negative 11/13/21 08:30 Crossmatch See Detail 11/13/21 08:30 Microbiology: Microbiology 11/11/21 14:22 Peripheral/Venous Blood Culture - Preliminary NO GROWTH AFTER 24 HOURS 11/11/21 14:36 Peripheral/Venous Blood Culture - Preliminary NO GROWTH AFTER 24 HOURS 11/10/21 15:35 Tracheal Aspirate Sputum Culture - Preliminary Gamble/IV: Voiding Method Indwelling Catheter Active Medications - Current Medications Current Medications: Generic Name Dose Route Start Last Admin Trade Name Freq PRN Reason Stop Dose Admin Acetaminophen 650 mg 11/04/21 02:03 11/12/21 05:35 Acetaminophen 325 Mg Tab PO 650 mg Q6H PRN Administration Pain MILD(1-3)/Fever >100.5/RODRIGUEZ Lipase/Protease/Amylase 1 each 11/08/21 11:09 Lipase 10,500/Protease 25,000/Amylase 43,750 (Units) Dr Cap FEEDTUBE PRN PRN For Clogged Feeding Tube Dextrose 0 ml 11/10/21 10:52 Dextrose 10% *Hypoglycemia IV PRN PRN Hypoglycemia Docusate Sodium 100 mg 11/08/21 12:00 11/13/21 09:10 Docusate Sodium 100 Mg/10 Ml Oral Liqd PO 100 mg BID YOSSI Administration Enoxaparin Sodium 60 mg 11/10/21 22:00 11/13/21 09:50 Enoxaparin 60 Mg/0.6 Ml Inj SUB-Q 60 mg Q12HR YOSSI Administration Protocol Famotidine 10 mg 11/11/21 22:00 11/13/21 09:10 Famotidine 10 Mg Tab FEEDTUBE 10 mg BID YOSSI Administration Fentanyl 50 mcg 11/11/21 16:22 Fentanyl 100 Mcg/2 Ml Inj IV Q10MIN PRN ANALGESIA Furosemide 20 mg 11/08/21 18:00 11/13/21 05:55 Furosemide 20 Mg/2 Ml Inj IV 20 mg 0600,1800 YOSSI Administration Hydrophilic Ointment 1 applic 11/06/21 04:02 Lip Therapy Vaseline TP Q2HR PRN Dry Lips NORepinephrine/NS 8 MG-250 ML 8 mg in 250 mls @ 3.75 mls/hr 11/05/21 09:00 11/13/21 13:30 Norepinephrine/Ns 8 Mg-250 Ml (Double Conc) IV 6 mcg/min TITRATE YOSSI 11.25 mls/hr Titration Protocol 2 MCG/MIN Vasopressin 20 unit/ Sodium 101 mls @ 9.09 mls/hr 11/05/21 23:00 11/06/21 01:00 Chloride IV 0.03 units/min TITR YOSSI 9.09 mls/hr Administration Protocol 0.03 UNITS/MIN Fentanyl Citrate 2,000 mcg in 100 mls @ 3.12 mls/hr 11/11/21 17:00 11/13/21 11:13 Fentanyl Drip Premix IV 3 mcg/kg/hr TITR YOSSI 9.36 mls/hr Titration Protocol 1 MCG/KG/HR Cefepime HCl 1 gm in 100 mls @ 200 mls/hr 11/12/21 16:00 11/13/21 15:15 Cefepime/Ns 1 Gm/100 Ml IV 200 mls/hr Q8H YOSSI Administration Protocol Vancomycin HCl 1,250 mg/ 275 mls @ 166.667 mls/hr 11/12/21 15:00 11/13/21 15:15 Sodium Chloride IV 166.667 mls/hr Q24H YOSSI Administration Sodium Chloride 500 mls @ 0 mls/hr 11/13/21 08:17 Nacl 0.9% 500 Ml IV 11/13/21 23:59 ONCE YOSSI As Directed Insulin Human Lispro 0 unit 11/06/21 12:00 11/13/21 12:49 Insulin Lispro 100 Unit/Ml SUB-Q Not Given Q6HR [facility] Protocol Levothyroxine Sodium 125 mcg 11/05/21 07:00 11/13/21 05:55 Levothyroxine 125 Mcg Tab PO 125 mcg DAILY@0600 [facility] Administration Magnesium Hydroxide 30 ml 11/04/21 02:03 Magnesium Hydroxide (Mom) Oral Liqd Udc PO Q4H PRN Constipation Multi-Ingred Cream/Lotion/Oil/Oint 1 applic 11/06/21 04:02 Mineral Oil/Petrolatum, White Ophth Oint 3.5 Gm OU Q4HR PRN Dry Eye(s) Ondansetron HCl 4 mg 11/04/21 02:03 11/05/21 15:48 Ondansetron 4 Mg/2 Ml Inj IV 4 mg Q8H PRN Administration Nausea And Vomiting Polyethylene Glycol 17 gm 11/08/21 12:00 11/13/21 09:10 Polyethylene Glycol 3350 17 Gm Powder PO 17 gm QDAY [facility] Administration Senna 17.6 mg 11/08/21 22:00 11/13/21 09:10 Sennosides Oral Liqd 8.8 Mg/5 Ml Oral Liqd PO 17.6 mg Q12HR YOSSI Administration Simple Syrup 15 ml 11/08/21 11:09 Simple Syrup 15 Ml FEEDTUBE PRN PRN Hypoglycemia Simple Syrup 30 ml 11/08/21 11:09 Simple Syrup 15 Ml FEEDTUBE PRN PRN Hypoglycemia Sodium Bicarbonate 325 mg 11/08/21 11:09 Sodium Bicarbonate 325 Mg Tab FEEDTUBE PRN PRN For Clogged Feeding Tube Sodium Chloride 10 ml 11/04/21 10:00 11/13/21 09:10 Sodium Chloride 0.9% 10 Ml Flush Syringe IV 10 ml BID YOSSI Administration Sodium Chloride 10 ml 11/04/21 02:03 Sodium Chloride 0.9% 10 Ml Flush Syringe IV PRN PRN LINE FLUSH Sodium Chloride 10 ml 11/10/21 09:57 11/12/21 17:08 Sodium Chloride 0.9% 50 Ml Ivpb IV 10 ml PRN PRN Administration FLUSH Nutrition/Malnutrition Assess - Dietary Evaluation Nutrition/Malnutrition Findings: Nutrition Notes Start: 11/04/21 17:16 Freq: Status: Active Protocol: Document 11/10/21 16:03 ISABELL (Rec: 11/10/21 16:20 ISABELL [id number]) Nutrition Notes Current Diagnosis Diabetes,Sepsis,Hypertension, Respiratory Failure Other Pertinent Diagnosis Severe Sepsis/Bacteremia, Bilateral Pneumonia. Current Diet TF-Vital AF @ 60 ml/hr (since L 11/08). Height 5 ft Weight 58.967 kg [place] Body Weight (kg) 45.45 BMI 25.4 Weight change and time frame No body weight change reported . Weight Status Appropriate Subjective/Other Information RD consult for TF tolerance. TF well tolerated, according to RN notes. Percent of energy/protein needs met: Prescribed Vital AF @ 60 ml/hr provides for energy/protein needs (1,710 Kcal/107 g) during LOS, 100% Kcal; 100% AA . #1 Nutrition Diagnosis Inadequate oral intake Diagnosis Progress(for reassessment Continues documentation) Is patient on ventilator? Yes Is Patient Ambulatory and/or Out of Bed No REE-([facility]-confined to bed) 1166.664 Kcal/Kg value to use for calculation 29 Approximate Energy Requirements Using 1710 kcal/Kg Calculation Used for Recommendations Kcal/kg Additional Notes Protein: 70-118 g/day (1.2-2g/ kg BW/day) Fluids: 1 ml/kcal, or as per MD. Nutrition Intervention Nutrition Support: Continue Vital AF @ 60 ml/hr. Flush: 100 ml water Q 4 hr, or as per MD. Kcal 1,710 Protein (gm) 107 Carbohydrates (gm) 158 Fat (gm) 77 Fluid (mL) 1,156 Fiber (gm) 7 % RDI: 100% Kcal; 100% AA. Goal #1 Provide at least 75% of energy /protein needs through Enteral Feeding during LOS. Goal #2 Maintain body weight within +/ -3% of admission body weight during LOS. Follow-Up By: 11/17/21 Additional Comments Continue monitoring TF tolerance and BM. <FREDERICK DALTON - Last Filed: 11/20/21 12:53> Assessment and Plan Assessment and plan: I saw and evaluated the patient. Discussed with the nurse practitioner and agree with their findings and plan as documented in this note. Hospitalist Physical - Constitutional Vitals: Temp Pulse Resp BP Pulse Ox 97.0 F L 67 15 91/44 95 11/20/21 12:00 11/20/21 11:28 11/20/21 11:27 11/20/21 11:00 11/20/21 11:27 HEART Score - HEART Score Troponin: Troponin T 0.033 ng/mL (0.00-0.029) H 11/05/21 06:11 Results - Labs CBC & Chem 7: 11/20/21 05:40 11/20/21 05:40 Labs: Laboratory Last Values WBC 8.2 K/mm3 (4.5-11.0) 11/20/21 05:40 RBC 3.40 M/mm3 (3.65-5.03) L 11/20/21 05:40 Hgb 9.1 gm/dl (10.1-14.3) L 11/20/21 05:40 Hct 28.8 % (30.3-42.9) L 11/20/21 05:40 MCV 85 fl (79-97) 11/20/21 05:40 MCH 27 pg (28-32) L 11/20/21 05:40 MCHC 31 % (30-34) 11/20/21 05:40 RDW 20.7 % (13.2-15.2) H 11/20/21 05:40 Plt Count 172 K/mm3 (140-440) 11/20/21 05:40 Add Manual Diff Complete 11/16/21 15:25 Total Counted 100 11/16/21 15:25 Seg Neutrophils % Milieu Coordinator 11/06/21 15:50 Seg Neuts % (Manual) 87.0 % (40.0-70.0) H 11/16/21 15:25 Band Neutrophils % 0 % 11/16/21 15:25 Lymphocytes % (Manual) 8.0 % (13.4-35.0) L 11/16/21 15:25 Reactive Lymphs % (Man) 0 % 11/16/21 15:25 Monocytes % (Manual) 5.0 % (0.0-7.3) 11/16/21 15:25 Eosinophils % (Manual) 0 % (0.0-4.3) 11/16/21 15:25 Basophils % (Manual) 0 % (0.0-1.8) 11/16/21 15:25 Metamyelocytes % 0 % 11/16/21 15:25 Myelocytes % 0 % 11/16/21 15:25 Promyelocytes % 0 % 11/16/21 15:25 Blast Cells % 0 % 11/16/21 15:25 Nucleated RBC % Not Reportable 11/16/21 15:25 Seg Neutrophils # Man 15.0 K/mm3 (1.8-7.7) H 11/16/21 15:25 Band Neutrophils # 0.0 K/mm3 11/16/21 15:25 Lymphocytes # (Manual) 1.4 K/mm3 (1.2-5.4) 11/16/21 15:25 Abs React Lymphs (Man) 0.0 K/mm3 11/16/21 15:25 Monocytes # (Manual) 0.9 K/mm3 (0.0-0.8) H 11/16/21 15:25 Eosinophils # (Manual) 0.0 K/mm3 (0.0-0.4) 11/16/21 15:25 Basophils # (Manual) 0.0 K/mm3 (0.0-0.1) 11/16/21 15:25 Metamyelocytes # 0.0 K/mm3 11/16/21 15:25 Myelocytes # 0.0 K/mm3 11/16/21 15:25 Promyelocytes # 0.0 K/mm3 11/16/21 15:25 Blast Cells # 0.0 K/mm3 11/16/21 15:25 WBC Morphology Not Reportable 11/16/21 15:25 Hypersegmented Neuts Not Reportable 11/16/21 15:25 Hyposegmented Neuts Not Reportable 11/16/21 15:25 Hypogranular Neuts Not Reportable 11/16/21 15:25 Smudge Cells Not Reportable 11/16/21 15:25 Toxic Granulation Not Reportable 11/16/21 15:25 Toxic Vacuolation Not Reportable 11/16/21 15:25 Dohle Bodies Not Reportable 11/16/21 15:25 Pelger-Huet Anomaly Not Reportable 11/16/21 15:25 Irina Rods Not Reportable 11/16/21 15:25 Platelet Estimate Consistent w auto 11/16/21 15:25 Clumped Platelets Rare 11/16/21 15:25 Plt Clumps, EDTA Not Reportable 11/16/21 15:25 Large Platelets Not Reportable 11/16/21 15:25 Giant Platelets Not Reportable 11/16/21 15:25 Platelet Satelliting Not Reportable 11/16/21 15:25 Plt Morphology Comment Not Reportable 11/16/21 15:25 RBC Morphology Not Reportable 11/16/21 15:25 Dimorphic RBCs Not Reportable 11/16/21 15:25 Polychromasia Not Reportable 11/16/21 15:25 Hypochromasia 2+ 11/16/21 15:25 Poikilocytosis Not Reportable 11/16/21 15:25 Anisocytosis 2+ 11/16/21 15:25 Microcytosis Not Reportable 11/16/21 15:25 Macrocytosis Not Reportable 11/16/21 15:25 Spherocytes Not Reportable 11/16/21 15:25 Pappenheimer Bodies Not Reportable 11/16/21 15:25 Sickle Cells Not Reportable 11/16/21 15:25 Target Cells 2+ 11/16/21 15:25 Tear Drop Cells Not Reportable 11/16/21 15:25 Ovalocytes Not Reportable 11/16/21 15:25 Helmet Cells Not Reportable 11/16/21 15:25 Odonnell-Arpin Bodies Not Reportable 11/16/21 15:25 [place] Rings Not Reportable 11/16/21 15:25 May Cells Not Reportable 11/16/21 15:25 Bite Cells Not Reportable 11/16/21 15:25 Crenated Cell Not Reportable 11/16/21 15:25 Elliptocytes Not Reportable 11/16/21 15:25 Acanthocytes (Spur) Not Reportable 11/16/21 15:25 Rouleaux Not Reportable 11/16/21 15:25 Hemoglobin C Crystals Not Reportable 11/16/21 15:25 Schistocytes Not Reportable 11/16/21 15:25 Malaria parasites Not Reportable 11/16/21 15:25 Godfrey Bodies Not Reportable 11/16/21 15:25 Hem Pathologist Commnt No 11/16/21 15:25 PT 18.6 Sec. (12.2-14.9) H 11/03/21 22:32 INR 1.40 (0.87-1.13) H 11/03/21 22:32 APTT 28.9 Sec. (24.2-36.6) 11/03/21 22:32 D-Dimer 2655.00 ng/mlDDU (0-234) H 11/11/21 04:28 ABG pH 7.407 pH Units (7.350-7.450) 11/14/21 16:14 ABG pCO2 45.6 mm Hg 11/14/21 16:14 ABG pO2 80.6 mm Hg (80.0-90.0) 11/14/21 16:14 ABG HCO3 28.0 mmol/L (20.0-26.0) H 11/14/21 16:14 ABG O2 Saturation 97.0 % (95.0-99.0) 11/14/21 16:14 ABG O2 Content 7.8 (0.0-44) 11/14/21 16:14 ABG Base Excess 3.1 mmol/L (-2.0-3.0) H 11/14/21 16:14 ABG Hemoglobin 5.8 gm/dl (12.0-16.0) L 11/14/21 16:14 ABG Carboxyhemoglobin 2.0 % (0.0-5.0) 11/14/21 16:14 ABG Methemoglobin 0.3 % (0.0-1.5) 11/14/21 16:14 Oxyhemoglobin 94.8 % (95.0-99.0) L 11/14/21 16:14 FiO2 35 % 11/14/21 16:14 Sodium 141 mmol/L (137-145) 11/20/21 05:40 Potassium 3.5 mmol/L (3.6-5.0) L 11/20/21 05:40 Chloride 108.9 mmol/L (98-107) H 11/20/21 05:40 Carbon Dioxide 23 mmol/L (22-30) 11/20/21 05:40 Anion Gap 13 mmol/L 11/20/21 05:40 BUN 37 mg/dL (7-17) H 11/20/21 05:40 Creatinine 0.8 mg/dL (0.6-1.2) 11/20/21 05:40 Estimated GFR > 60 ml/min 11/20/21 05:40 BUN/Creatinine Ratio 46 % 11/20/21 05:40 Glucose 117 mg/dL (65-100) H 11/20/21 05:40 POC Glucose 74 mg/dL (70-105) 11/20/21 12:04 Lactic Acid 3.70 mmol/L (0.7-2.0) H* 11/03/21 22:32 Calcium 7.5 mg/dL (8.4-10.2) L 11/20/21 05:40 Phosphorus 3.80 mg/dL (2.5-4.5) D 11/19/21 04:55 Magnesium 2.30 mg/dL (1.7-2.3) 11/19/21 04:55 Ferritin 52.6 ng/mL (10.0-200.0) 11/05/21 06:11 Total Bilirubin 0.50 mg/dL (0.1-1.2) 11/17/21 05:56 Direct Bilirubin < 0.2 mg/dL (0-0.2) 11/11/21 04:28 Indirect Bilirubin 0.1 mg/dL 11/11/21 04:28 AST 36 units/L (5-40) 11/17/21 05:56 ALT 47 units/L (7-56) 11/17/21 05:56 Alkaline Phosphatase 107 units/L (35-129) 11/17/21 05:56 Ammonia 42.0 umol/L (25-60) 11/10/21 14:08 Lactate Dehydrogenase 187 units/L (91-180) H 11/05/21 06:11 Troponin T 0.033 ng/mL (0.00-0.029) H 11/05/21 06:11 C-Reactive Protein 22.20 mg/dL (0.00-1.30) H 11/05/21 06:11 NT-Pro-B Natriuret Pep 7895 pg/mL (0-900) H 11/03/21 22:32 Total Protein 5.1 g/dL (6.3-8.2) L 11/17/21 05:56 Albumin 2.2 g/dL (3.9-5) L 11/17/21 05:56 Albumin/Globulin Ratio 0.8 % 11/17/21 05:56 Triglycerides 66 mg/dL (2-149) 11/03/21 22:32 Cholesterol 80 mg/dL (50-199) 11/03/21 22:32 LDL Cholesterol Direct 34 mg/dL (50-130) L 11/03/21 22:32 HDL Cholesterol 42 mg/dL (40-59) 11/03/21 22:32 Cholesterol/HDL Ratio 1.90 % 11/03/21 22:32 Vitamin B12 1823 pg/mL (211-911) H 11/10/21 14:08 TSH 1.510 mlU/mL (0.270-4.200) 11/10/21 14:08 Urine Color Yellow (Yellow) 11/11/21 09:00 Urine Turbidity Slightly-cloudy (Clear) 11/11/21 09:00 Urine pH 5.0 (5.0-7.0) 11/11/21 09:00 Ur Specific [place] 1.009 (1.003-1.030) 11/11/21 09:00 Urine Protein <15 mg/dl mg/dL (Negative) 11/11/21 09:00 Urine Glucose (UA) Neg mg/dL (Negative) 11/11/21 09:00 Urine Ketones Neg mg/dL (Negative) 11/11/21 09:00 Urine Blood Mod (Negative) 11/11/21 09:00 Urine Nitrite Neg (Negative) 11/11/21 09:00 Urine Bilirubin Neg (Negative) 11/11/21 09:00 Urine Urobilinogen < 2.0 mg/dL (<2.0) 11/11/21 09:00 Ur Leukocyte Esterase Neg (Negative) 11/11/21 09:00 Urine WBC (Auto) < 1.0 /HPF (0.0-6.0) 11/11/21 09:00 Urine RBC (Auto) < 1.0 /HPF (0.0-6.0) 11/11/21 09:00 Coronavirus (PCR) Negative (Negative) 11/10/21 08:30 Blood Type O POSITIVE 11/18/21 10:45 Antibody Screen Negative 11/18/21 10:45 Crossmatch See Detail 11/18/21 10:45 Gamble/IV: Voiding Method Incontinent Active Medications - Current Medications Current Medications: Generic Name Dose Route Start Last Admin Trade Name Freq PRN Reason Stop Dose Admin Acetaminophen 650 mg 11/04/21 02:03 11/16/21 15:43 Acetaminophen 325 Mg Tab PO 650 mg Q6H PRN Administration Pain MILD(1-3)/Fever >100.5/RODRIGUEZ Hydrocodone Bitart/Acetaminophen 1 each 11/15/21 20:00 11/20/21 09:52 Hydrocodone/Acetaminophen 10-325mg Tab PO 11/20/21 19:59 1 each TID YOSSI Administration Lipase/Protease/Amylase 1 each 11/08/21 11:09 Lipase 10,500/Protease 25,000/Amylase 43,750 (Units) Dr Lema FEEDTUBE PRN PRN For Clogged Feeding Tube Buspirone HCl 7.5 mg 11/17/21 22:00 11/20/21 09:52 Buspirone 5 Mg Tab PO 7.5 mg BID YOSSI Administration Dextrose 0 ml 11/10/21 10:52 11/20/21 12:37 Dextrose 10% *Hypoglycemia IV 50 ml PRN PRN Administration Hypoglycemia Docusate Sodium 100 mg 11/08/21 12:00 11/20/21 09:08 Docusate Sodium 100 Mg/10 Ml Oral Liqd PO Not Given BID YOSSI Fentanyl 1 applic 11/17/21 13:00 11/20/21 09:07 Fentanyl 25 Mcg/Hr Patch 72hr TD 1 applic Q3D YOSSI Administration Fentanyl 25 mcg 11/19/21 18:09 11/20/21 07:05 Fentanyl 100 Mcg/2 Ml Inj IV 11/21/21 18:08 25 mcg Q2HR PRN Administration Pain, Moderate (4-6) Hydrophilic Ointment 1 applic 11/06/21 04:02 Lip Therapy Vaseline TP Q2HR PRN Dry Lips NORepinephrine/NS 8 MG-250 ML 8 mg in 250 mls @ 3.75 mls/hr 11/05/21 09:00 11/18/21 03:26 Norepinephrine/Ns 8 Mg-250 Ml (Double Conc) IV 0 mcg/min TITRATE YOSSI 0 mls/hr Titration Protocol 2 MCG/MIN Vasopressin 20 unit/ Sodium 101 mls @ 9.09 mls/hr 11/05/21 23:00 11/06/21 01:00 Chloride IV 0.03 units/min TITR YOSSI 9.09 mls/hr Administration Protocol 0.03 UNITS/MIN Pantoprazole Sodium 80 mg/ 100 mls @ 10 mls/hr 11/16/21 17:00 11/20/21 01:34 Sodium Chloride IV 8 mg/hr DIRECT YOSSI 10 mls/hr Administration 8 MG/HR Fentanyl Citrate 2,000 mcg in 100 mls @ 3.12 mls/hr 11/17/21 13:00 11/20/21 10:11 Fentanyl Drip Premix IV 3 mcg/kg/hr TITR YOSSI 9.36 mls/hr Titration Protocol 1 MCG/KG/HR Dextrose 1,000 mls @ 75 mls/hr 11/17/21 16:00 11/20/21 06:44 D5w IV 11/21/21 05:19 75 mls/hr DIRECT YOSSI Administration Insulin Human Lispro 0 unit 11/06/21 12:00 11/20/21 12:40 Insulin Lispro 100 Unit/Ml SUB-Q Not Given Q6HR [facility] Protocol Levothyroxine Sodium 125 mcg 11/05/21 07:00 11/20/21 05:29 Levothyroxine 125 Mcg Tab PO Not Given DAILY@0600 [facility] Magnesium Hydroxide 30 ml 11/04/21 02:03 Magnesium Hydroxide (Mom) Oral Liqd Udc PO Q4H PRN Constipation Multi-Ingred Cream/Lotion/Oil/Oint 1 applic 11/06/21 04:02 Mineral Oil/Petrolatum, White Ophth Oint 3.5 Gm OU Q4HR PRN Dry Eye(s) Ondansetron HCl 4 mg 11/04/21 02:03 11/05/21 15:48 Ondansetron 4 Mg/2 Ml Inj IV 4 mg Q8H PRN Administration Nausea And Vomiting Polyethylene Glycol 17 gm 11/08/21 12:00 11/20/21 09:08 Polyethylene Glycol 3350 17 Gm Powder PO Not Given QDAY [facility] Potassium Chloride 40 meq 11/20/21 09:00 11/20/21 09:51 Potassium Chloride 20 Meq Packet FEEDTUBE 11/20/21 13:00 40 meq ONCE@0900 YOSSI Administration Pravastatin Sodium 20 mg 11/18/21 22:00 11/19/21 22:54 Pravastatin 20 Mg Tab PO Not Given QHS YOSSI Senna 17.6 mg 11/08/21 22:00 11/20/21 09:08 Sennosides Oral Liqd 8.8 Mg/5 Ml Oral Liqd PO Not Given Q12HR YOSSI Simple Syrup 15 ml 11/08/21 11:09 Simple Syrup 15 Ml FEEDTUBE PRN PRN Hypoglycemia Simple Syrup 30 ml 11/08/21 11:09 Simple Syrup 15 Ml FEEDTUBE PRN PRN Hypoglycemia Sodium Bicarbonate 325 mg 11/08/21 11:09 Sodium Bicarbonate 325 Mg Tab FEEDTUBE PRN PRN For Clogged Feeding Tube Sodium Chloride 10 ml 11/04/21 10:00 11/20/21 09:07 Sodium Chloride 0.9% 10 Ml Flush Syringe IV 10 ml BID YOSSI Administration Sodium Chloride 10 ml 11/04/21 02:03 Sodium Chloride 0.9% 10 Ml Flush Syringe IV PRN PRN LINE FLUSH Sodium Chloride 10 ml 11/10/21 09:57 11/17/21 20:47 Sodium Chloride 0.9% 50 Ml Ivpb IV 10 ml PRN PRN Administration FLUSH Sucralfate 1 gm 11/18/21 16:30 11/20/21 12:00 Sucralfate 1 Gm/10 Ml Oral Liqd PO 1 gm ACHS YOSSI Administration Nutrition/Malnutrition Assess - Dietary Evaluation Nutrition/Malnutrition Findings: Nutrition Notes Start: 11/04/21 17:16 Freq: Status: Active Protocol: Document 11/19/21 16:30 ISABELL (Rec: 11/19/21 16:41 ISABELL [id number]) Nutrition Notes Initial or Follow up Brief Note Current Diet NPO. Height 5 ft Weight 62.4 kg [place] Body Weight (kg) 45.45 BMI 26.9 Weight change and time frame No body weight change reported . Weight Status Appropriate Subjective/Other Information RD consult for routine F/U on TF resume. Pt presented GI bleed. Procedure: EGD with hemostasis and biopsy. Pt continues on mechanical ventilation. indication to continue NPO. Percent of energy/protein needs met: Pt currently on NPO. Nutrition Intervention Follow-Up By: 11/21/21 Additional Comments F/U: TF restart/tolerance, vent status, Na lab/water flush
[2021-11-13] MEDS: fentaNYL 100 MCG/2 ML INJ IV PRN (18:01)
[2021-11-13] MEDS: NORepinephrine/NS 8 MG-250 ML 8 MG/250 ML INFUS..BTL IV SCH (21:37)
[2021-11-14] MEDS: INSULIN LISPRO 100 UNIT/ML SUB-Q SCH ×4 (00:07→17:35)
[2021-11-14] MEDS: CEFEPIME/NS 1 GM/100 ML 1 GM/100 ML BAG IV SCH ×3 (00:08→16:15)
[2021-11-14] MEDS: fentaNYL DRIP Premix 2,000 MCG/100 ML BAG IV SCH ×2 (04:20→14:18)
[2021-11-14 05:26] LABS: Mean Corpuscular HGB Conc 29 % (30-34); Mean Corpuscular Volume 79 fl (79-97); Platelet Count 146 K/mm3 (140-440); Red Blood Count 3.41 M/mm3 (3.65-5.03)
[2021-11-14 05:27] LABS: Hematocrit 26.8 % (30.3-42.9); Hemoglobin 7.9 gm/dl (10.1-14.3)
[2021-11-14 05:40] LABS: Blood Urea Nitrogen 43 mg/dL (7-17); Calcium 7.5 mg/dL (8.4-10.2); Hemolysis Index 3
[2021-11-14 05:41] LABS: BUN/Creatinine Ratio 61
[2021-11-14] MEDS: LEVOTHYROXINE 125 MCG TAB PO SCH (06:25)
[2021-11-14] MEDS: FUROSEMIDE 20 MG/2 ML INJ IV SCH ×2 (06:25→17:34)
[2021-11-14] MEDS: SENNOSIDES ORAL LIQD 8.8 MG/5 ML ORAL LIQD PO SCH ×2 (09:39→22:42)
[2021-11-14] MEDS: DOCUSATE SODIUM 100 MG/10 ML ORAL LIQD PO SCH ×2 (09:39→22:42)
[2021-11-14] MEDS: ENOXAPARIN 60 MG/0.6 ML INJ SUB-Q SCH ×2 (09:40→22:41)
[2021-11-14] MEDS: POLYETHYLENE GLYCOL 3350 17 GM POWDER PO SCH (09:40)
[2021-11-14] MEDS: FAMOTIDINE 10 MG TAB FEEDTUBE SCH ×2 (10:10→22:41)
--- NOTE | 2021-11-14 11:24 | Progress Note ---
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 She was found to be in respiratory distress, initially treated with NRB. Pt was also noted to be septic with radiographic evidence of bilateral PNA Acute Respiratory Failure Septic Shock GBS Bacteremia Bilateral Pneumonia Bilateral Pleural Effusions Right pneumothorax and s/p right chest tube Acute HFrEF DVT Cardiomyopathy (EF reduced to 30-35% on echo this admission) NSVT Tn Elevation (?Type 2 [place] in the setting of hypoxia & shock) Elevated LFTs (?shock liver) Anemia Hypokalemia CAD s/p PCI (2004) CHB s/p PPM ([facility]) Hypothyroidism H/o HTN H/o DM Arthritis Echo reviewed - EF 30-35%, mild diastolic dysfunction, RV mildly dilated, moderate MR, moderate TR, moderate pulmonary HTN w/RVSP 49mmHg, no pericardial effusion, large left pleural effusion. Plan: Patient no longer on Levo. Will continue to hold BB for soft BB Continue gentle IV diuresis with strict I/Os and close monitoring of renal indices & electrolytes. Not on ASA d/t allergy. Statin held in the setting of elevated LFTs. Will see as needed over weekend Pt seen in conjunction with Dr. Griggs, who agrees with the assessment and plan of care. - Patient Problems (1) Acute anemia Current Visit: Yes Status: Acute (2) Acute respiratory failure with hypoxia Current Visit: Yes Status: Acute (3) Bilateral pneumonia Current Visit: Yes Status: Acute Subjective Date of service: 11/14/21 Principal diagnosis: Septic shock; AHRF; Anemia; Pneumonia; L. pleural effusion; HFrEF; Pulm HTN Interval history: Patient remained intubated and is currently awake Sinus 90s on monitor Objective Vital Signs Temp Pulse Pulse Resp BP Pulse Ox 11/14/21 10:45 85 15 127/46 98 11/14/21 10:31 85 13 147/48 98 11/14/21 10:15 87 14 131/50 98 11/14/21 10:01 92 H 13 130/51 99 11/14/21 09:45 91 H 11 L 111/50 100 11/14/21 09:30 82 15 111/50 98 11/14/21 09:15 94 H 15 121/52 100 11/14/21 09:01 86 14 121/52 99 11/14/21 08:45 88 15 96/39 99 11/14/21 08:30 76 15 96/39 97 11/14/21 08:15 77 16 100/42 97 11/14/21 08:00 98.0 F 83 17 114/50 97 11/14/21 07:45 79 15 108/51 98 11/14/21 07:30 78 15 100/43 96 11/14/21 07:15 80 15 95/41 96 11/14/21 07:00 83 16 96/42 96 11/14/21 06:45 87 15 130/66 97 11/14/21 06:30 97 H 19 130/66 98 11/14/21 06:15 95 H 15 117/51 100 11/14/21 06:00 103 H 19 138/71 98 11/14/21 05:45 97 H 12 122/70 93 11/14/21 05:31 94 H 13 122/70 99 11/14/21 05:15 89 13 120/54 98 11/14/21 05:00 83 16 120/54 98 11/14/21 04:45 81 14 114/50 98 11/14/21 04:30 83 14 107/47 97 11/14/21 04:15 79 14 105/50 96 11/14/21 04:10 85 2 L 114/50 98 11/14/21 04:00 98.6 F 80 15 107/49 98 11/14/21 03:45 85 11 L 122/56 98 11/14/21 03:42 84 19 99 11/14/21 03:30 84 16 123/53 97 11/14/21 03:15 82 15 118/49 98 11/14/21 03:00 86 19 122/55 98 11/14/21 02:45 86 14 121/61 100 11/14/21 02:30 87 18 129/60 99 11/14/21 02:15 83 15 123/61 97 11/14/21 02:00 87 16 119/59 98 11/14/21 01:45 80 17 108/58 97 11/14/21 01:30 79 14 102/47 97 11/14/21 01:15 83 15 121/51 97 11/14/21 01:00 81 14 111/47 95 01/28/22 00:45 89 20 128/55 98 11/14/21 00:30 89 17 121/54 96 11/14/21 00:20 84 4 L 107/50 97 11/14/21 00:15 89 18 132/56 97 11/14/21 00:00 98.8 F 89 89 17 131/60 99 11/13/21 23:45 91 H 17 127/60 99 11/13/21 23:30 83 14 122/58 100 11/13/21 23:15 84 13 119/57 99 11/13/21 23:00 82 14 116/57 99 11/13/21 22:45 79 14 108/51 100 11/13/21 22:30 74 14 94/37 98 11/13/21 22:15 80 14 108/44 98 11/13/21 22:00 85 13 119/52 99 11/13/21 21:45 96 H 19 135/62 99 11/13/21 21:30 80 14 111/48 99 11/13/21 21:15 80 14 109/48 98 11/13/21 21:00 84 14 118/56 99 11/13/21 20:45 88 16 123/60 99 11/13/21 20:30 85 14 119/60 98 11/13/21 20:15 85 14 123/56 98 11/13/21 20:00 99.7 F H 81 81 14 116/54 98 11/13/21 19:45 78 14 107/49 98 11/13/21 19:30 79 14 109/49 97 11/13/21 19:15 81 14 109/50 98 11/13/21 19:00 78 15 99/42 97 11/13/21 18:45 80 14 102/39 97 11/13/21 18:30 92 H 17 126/59 98 11/13/21 18:15 98 H 20 139/73 97 11/13/21 18:00 106 H 18 144/76 11/13/21 17:45 100 H 17 140/73 99 11/13/21 17:30 98 H 14 135/68 99 11/13/21 17:15 92 H 16 124/56 98 11/13/21 17:00 91 H 15 119/60 99 11/13/21 16:45 89 14 117/61 97 11/13/21 16:30 95 H 15 129/62 98 11/13/21 16:15 96 H 17 102/49 98 11/13/21 16:00 100 H 84 16 140/73 98 11/13/21 15:53 99.4 F 11/13/21 15:45 77 15 94/42 98 11/13/21 15:30 86 14 105/56 97 11/13/21 15:15 91 H 10 L 111/61 98 11/13/21 15:00 91 H 14 118/60 98 11/13/21 14:45 98 H 12 116/56 97 11/13/21 14:30 98.8 F 80 15 103/45 98 11/13/21 14:15 81 15 107/53 98 11/13/21 14:00 84 16 95/47 98 11/13/21 13:45 98.5 F 83 14 102/48 98 11/13/21 13:30 90 16 112/57 99 11/13/21 13:15 99 F 82 16 104/48 99 11/13/21 13:00 89 16 110/53 99 11/13/21 12:45 98.8 F 95 H 14 123/60 99 11/13/21 12:30 98.5 F 98 H 14 130/61 99 11/13/21 12:15 101 H 19 140/58 99 11/13/21 12:00 98.2 F 80 80 17 105/50 99 11/13/21 11:45 80 16 105/52 100 11/13/21 11:42 98.2 F 11/13/21 11:30 79 15 104/53 99 - Physical Examination General: Other (intubated) HEENT: Positive: Normocephaly Neck: Positive: neck supple, trachea midline Cardiac: Positive: Reg Rate and Rhythm Lungs: Positive: Ventilated Respirations Neuro: Positive: Other (intubated) Abdomen: Positive: Soft Skin: Negative: Rash, Wound Musculoskeletal: No Fluid Collection Extremities: Present: lower extr. pulses, edema - Labs and Meds CBC 11/14/21 Range/Units 04:46 WBC 20.0 H (4.5-11.0) K/mm3 RBC 3.41 L (3.65-5.03) M/mm3 Hgb 7.9 L (10.1-14.3) gm/dl Hct 26.8 L (30.3-42.9) % Plt Count 146 (140-440) K/mm3 Comprehensive Metabolic Panel 11/14/21 Range/Units 04:46 Sodium 148 H (137-145) mmol/L Potassium 4.1 (3.6-5.0) mmol/L Chloride 113.1 H (98-107) mmol/L Carbon Dioxide 24 (22-30) mmol/L BUN 43 H (7-17) mg/dL Creatinine 0.7 (0.6-1.2) mg/dL Glucose 140 H (65-100) mg/dL Calcium 7.5 L (8.4-10.2) mg/dL - Imaging and Cardiology EKG: report reviewed, image reviewed Stress echo: report reviewed Echo: report reviewed Cardiac cath: report reviewed - Telemetry EKG Rhythm: Sinus Rhythm - EKG Sinus rhythms and dysrhythmias: sinus rhythm, sinus tachycardia Ventricular dysrhythmias: ventricular premature com - Allied health notes Allied health notes reviewed: nursing
--- NOTE | 2021-11-14 12:12 | Progress Note ---
Assessment and Plan 81-year-old female with known history of diabetes mellitus, hypertension and arthritis brought to the emergency room via EMS today for shortness of breath which has been ongoing for the past 3 days. Patient has been having some cough and shortness of breath. According to patient's , patient has also been having a fever of about 102.2 F. Upon arrival of EMS patient was found to be tachypneic with O2 saturation of 76% on room air which later improved to 88% on nonrebreather. Work-up in the emergency room today, chest x-ray shows bilateral interstitial pulmonary edema with bilateral pleural effusions.. Bibasilar opacities which favors atelectasis. Assessment and Plan #Acute Encephalopathy improved she is alert follow command ,move all extremites to stimulation and command -on Fentanyl today IV# 3mc due to pain and agitation -Initial Ct brain showed no acute event -EEG is slightly slow , no seizure activity is noted -MRI brain unable to do due to pace maker/ foreign body metal .. - will repeat CT brain pending # Diffuse weakness - mostly related to bed ridden - need pt therapy evaluation. #Septic Shock POA #Bilateral Pneumonia #Bacteremia - Presented with fevers, leukocytosis, and hypotension - COVID PCR negative - 11/04 B.cult with 3/4 group B strep bacteremia - 11/04 2D Echo with no evidence of vegetation - Trend CBC #Acute Hypoxic Respiratory Failure 2/2 #Bilateral Pleural Effusion #Bilateral Pneumonia # Pneumothorax after bronchoscopy --she is with right side chest tube. - COVID PCR negative - CXR shows Bilateral opacities, may be volume overloaded. #CHF- EF 30-35% with PPM #Hypotension-improved #Septic Kristian - Was on 3 pressors initially - Off pressors - SR on the monitor, HR 70-90s - 11/04 Echo-EF 30-35% - Maintain MAP above 65 #Acute Microcytic Anemia # Positive US lEs in Right external iliac vein , right common femoral vein and superior aspect right femoral vein #Transaminitis/Shock Liver #DVT Prophylaxis - Continue AC- heparin subQ-Full dose - SCDs to bilateral lower extremities while in bed Recommend 1-as above 2-PT therapy to see 3- extubate when ready 4- Ct brain repeat when ready will sign off 2- Subjective Date of service: 11/14/21 Principal diagnosis: Septic shock; AHRF; Anemia; Pneumonia; L. pleural effusion; HFrEF; Pulm HTN Interval history: continues to be intubated awak today respond to command moving all extremities slightly agitated started on small dose fentanyl 3mc could not do MRI due to metal in body eeg is reasonably will maintained back ground !!! Ammonia#42 b12 and folate wnl US les is remarkable for DVT iliac and femral veins she is on SQ heparin Allergic to ASA as per cardiology note. WBCs is #down slightly 20K, Na#149- 148--- BUN/Cr#43/0.7 Objective - Vital Sign Vital Signs - 12hr 11/14/21 11/14/21 11/14/21 00:15 00:20 00:30 Temperature Pulse Rate 89 84 89 Pulse Rate [ From Monitor] Respiratory 18 4 L 17 Rate Blood Pressure 132/56 107/50 121/54 O2 Sat by Pulse 97 97 96 Oximetry 11/14/21 11/14/21 11/14/21 00:45 01:00 01:15 Temperature Pulse Rate 89 81 83 Pulse Rate [ From Monitor] Respiratory 20 14 15 Rate Blood Pressure 128/55 111/47 121/51 O2 Sat by Pulse 98 95 97 Oximetry 11/14/21 11/14/21 11/14/21 01:30 01:45 02:00 Temperature Pulse Rate 79 80 87 Pulse Rate [ From Monitor] Respiratory 14 17 16 Rate Blood Pressure 102/47 108/58 119/59 O2 Sat by Pulse 97 97 98 Oximetry 11/14/21 11/14/21 11/14/21 02:15 02:30 02:45 Temperature Pulse Rate 83 87 86 Pulse Rate [ From Monitor] Respiratory 15 18 14 Rate Blood Pressure 123/61 129/60 121/61 O2 Sat by Pulse 97 99 100 Oximetry 11/14/21 11/14/21 11/14/21 03:00 03:15 03:30 Temperature Pulse Rate 86 82 84 Pulse Rate [ From Monitor] Respiratory 19 15 16 Rate Blood Pressure 122/55 118/49 123/53 O2 Sat by Pulse 98 98 97 Oximetry 11/14/21 11/14/21 11/14/21 03:42 03:45 04:00 Temperature 98.6 F Pulse Rate 85 80 Pulse Rate [ 84 From Monitor] Respiratory 19 11 L 15 Rate Blood Pressure 122/56 107/49 O2 Sat by Pulse 99 98 98 Oximetry 0111/14/21 11/14/21 04:10 04:15 04:30 Temperature Pulse Rate 85 79 83 Pulse Rate [ From Monitor] Respiratory 2 L 14 14 Rate Blood Pressure 114/50 105/50 107/47 O2 Sat by Pulse 98 96 97 Oximetry 11/14/21 11/14/21 11/14/21 04:45 05:00 05:15 Temperature Pulse Rate 81 83 89 Pulse Rate [ From Monitor] Respiratory 14 16 13 Rate Blood Pressure 114/50 120/54 120/54 O2 Sat by Pulse 98 98 98 Oximetry 11/14/21 11/14/21 11/14/21 05:31 05:45 06:00 Temperature Pulse Rate 94 H 97 H 103 H Pulse Rate [ From Monitor] Respiratory 13 12 19 Rate Blood Pressure 122/70 122/70 138/71 O2 Sat by Pulse 99 93 98 Oximetry 11/14/21 11/14/21 11/14/21 06:15 06:30 06:45 Temperature Pulse Rate 95 H 97 H 87 Pulse Rate [ From Monitor] Respiratory 15 19 15 Rate Blood Pressure 117/51 130/66 130/66 O2 Sat by Pulse 100 98 97 Oximetry 11/14/21 11/14/21 11/14/21 07:00 07:15 07:30 Temperature Pulse Rate 83 80 78 Pulse Rate [ From Monitor] Respiratory 16 15 15 Rate Blood Pressure 96/42 95/41 100/43 O2 Sat by Pulse 96 96 96 Oximetry 11/14/21 11/14/21 11/14/21 07:45 08:00 08:15 Temperature 98.0 F Pulse Rate 79 83 77 Pulse Rate [ From Monitor] Respiratory 15 17 16 Rate Blood Pressure 108/51 114/50 100/42 O2 Sat by Pulse 98 97 97 Oximetry 11/14/21 11/14/21 11/14/21 08:30 08:45 09:01 Temperature Pulse Rate 76 88 86 Pulse Rate [ From Monitor] Respiratory 15 15 14 Rate Blood Pressure 96/39 96/39 121/52 O2 Sat by Pulse 97 99 99 Oximetry 11/14/21 11/14/21 11/14/21 09:15 09:30 09:45 Temperature Pulse Rate 94 H 82 91 H Pulse Rate [ From Monitor] Respiratory 15 15 11 L Rate Blood Pressure 121/52 111/50 111/50 O2 Sat by Pulse 100 98 100 Oximetry 11/14/21 11/14/21 11/14/21 10:01 10:15 10:31 Temperature Pulse Rate 92 H 87 85 Pulse Rate [ From Monitor] Respiratory 13 14 13 Rate Blood Pressure 130/51 131/50 147/48 O2 Sat by Pulse 99 98 98 Oximetry 11/14/21 10:45 Temperature Pulse Rate 85 Pulse Rate [ From Monitor] Respiratory 15 Rate Blood Pressure 127/46 O2 Sat by Pulse 98 Oximetry - General Apperance Constitutional: uncomfortable - EENT EENT: PERRL, mucous membranes moist - Respiratory Respiratory: lungs clear, rhonchi - Cardiovascular Cardiovascular: regular rate, normal S1, normal S2 Extremities: no peripheral edema bilat, no clubbing, cyanosis - Gastrointestinal Gastrointestinal: normoactive bowel sounds - Integumentary Integumentary: normal - Neurologic Cranial nerve examination: PERRL, EOMI, intact Speech examination: other (awak and intubated ) Detailed motor examination: other (move all limbs to stimuli and command ) - Laboratory Findings CBC and BMP: 11/14/21 04:46 11/14/21 04:46 Abnormal Lab Findings: Abnormal Labs 11/03/21 11/03/21 11/03/21 22:32 22:32 22:32 WBC 29.3 H RBC 2.93 L Hgb 6.1 L Hct 21.9 L MCV 75 L MCH 21 L MCHC 28 L RDW 19.7 H Plt Count Seg Neuts % (Manual) 97.0 H Lymphocytes % (Manual) 3.0 L Seg Neutrophils # Man 28.4 H Lymphocytes # (Manual) 0.9 L Monocytes # (Manual) PT 18.6 H INR 1.40 H D-Dimer ABG pH ABG pO2 ABG HCO3 ABG O2 Saturation ABG Base Excess ABG Hemoglobin Oxyhemoglobin Sodium Potassium Chloride Carbon Dioxide 20 L BUN 33 H Glucose 119 H POC Glucose Lactic Acid Calcium 8.3 L Phosphorus Magnesium AST ALT Alkaline Phosphatase Lactate Dehydrogenase Troponin T 0.035 H C-Reactive Protein NT-Pro-B Natriuret Pep Total Protein Albumin LDL Cholesterol Direct 34 L Vitamin B12 Crossmatch 11/03/21 11/03/21 11/03/21 22:32 22:32 23:57 WBC RBC Hgb Hct MCV MCH MCHC RDW Plt Count Seg Neuts % (Manual) Lymphocytes % (Manual) Seg Neutrophils # Man Lymphocytes # (Manual) Monocytes # (Manual) PT INR D-Dimer ABG pH ABG pO2 ABG HCO3 ABG O2 Saturation ABG Base Excess ABG Hemoglobin Oxyhemoglobin Sodium Potassium Chloride Carbon Dioxide BUN Glucose POC Glucose Lactic Acid 3.70 H* Calcium Phosphorus Magnesium AST ALT Alkaline Phosphatase 139 H Lactate Dehydrogenase Troponin T C-Reactive Protein NT-Pro-B Natriuret Pep 7895 H Total Protein Albumin 3.5 L LDL Cholesterol Direct Vitamin B12 Crossmatch See Detail 11/04/21 11/04/21 11/05/21 00:59 13:58 00:51 WBC 27.9 H RBC 3.28 L Hgb 7.3 L Hct 25.5 L MCV 78 L MCH 22 L MCHC 29 L RDW 19.1 H Plt Count Seg Neuts % (Manual) 96.0 H Lymphocytes % (Manual) 2.0 L Seg Neutrophils # Man 26.8 H Lymphocytes # (Manual) 0.6 L Monocytes # (Manual) PT INR D-Dimer ABG pH ABG pO2 ABG HCO3 ABG O2 Saturation ABG Base Excess ABG Hemoglobin Oxyhemoglobin Sodium Potassium Chloride Carbon Dioxide BUN Glucose POC Glucose Lactic Acid Calcium Phosphorus Magnesium AST ALT Alkaline Phosphatase Lactate Dehydrogenase Troponin T 0.051 H D 0.032 H D C-Reactive Protein NT-Pro-B Natriuret Pep Total Protein Albumin LDL Cholesterol Direct Vitamin B12 Crossmatch 11/05/21 11/05/21 11/05/21 06:11 06:11 06:11 WBC 31.8 H RBC 3.57 L Hgb 8.0 L Hct 27.7 L MCV 78 L MCH 22 L MCHC 29 L RDW 19.2 H Plt Count Seg Neuts % (Manual) 91.0 H Lymphocytes % (Manual) 4.5 L Seg Neutrophils # Man 28.9 H Lymphocytes # (Manual) Monocytes # (Manual) 1.1 H PT INR D-Dimer 1494.53 H ABG pH ABG pO2 ABG HCO3 ABG O2 Saturation ABG Base Excess ABG Hemoglobin Oxyhemoglobin Sodium Potassium Chloride Carbon Dioxide 19 L BUN 42 H Glucose 115 H POC Glucose Lactic Acid Calcium Phosphorus Magnesium AST 43 H ALT Alkaline Phosphatase Lactate Dehydrogenase 187 H Troponin T C-Reactive Protein 22.20 H NT-Pro-B Natriuret Pep Total Protein 6.0 L Albumin 3.2 L LDL Cholesterol Direct Vitamin B12 Crossmatch 11/05/21 11/05/2122 06:11 12:15 00:30 WBC RBC Hgb Hct MCV MCH MCHC RDW Plt Count Seg Neuts % (Manual) Lymphocytes % (Manual) Seg Neutrophils # Man Lymphocytes # (Manual) Monocytes # (Manual) PT INR D-Dimer ABG pH ABG pO2 ABG HCO3 ABG O2 Saturation ABG Base Excess ABG Hemoglobin Oxyhemoglobin Sodium Potassium Chloride Carbon Dioxide BUN Glucose POC Glucose 113 H 69 L Lactic Acid Calcium Phosphorus Magnesium AST ALT Alkaline Phosphatase Lactate Dehydrogenase Troponin T 0.033 H C-Reactive Protein NT-Pro-B Natriuret Pep Total Protein Albumin LDL Cholesterol Direct Vitamin B12 Crossmatch 11/06/21 11/06/21 11/06/21 05:50 15:50 15:50 WBC 25.5 H RBC 3.62 L Hgb 8.0 L Hct 27.5 L MCV 76 L MCH 22 L MCHC 29 L RDW 19.6 H Plt Count Seg Neuts % (Manual) 92.0 H Lymphocytes % (Manual) 5.0 L Seg Neutrophils # Man 23.5 H Lymphocytes # (Manual) Monocytes # (Manual) PT INR D-Dimer ABG pH 7.305 L ABG pO2 ABG HCO3 15.8 L ABG O2 Saturation ABG Base Excess -9.6 L ABG Hemoglobin 8.6 L Oxyhemoglobin 94.6 L Sodium Potassium Chloride 113.9 H Carbon Dioxide 17 L BUN 56 H Glucose 114 H POC Glucose Lactic Acid Calcium 7.9 L Phosphorus Magnesium AST 1410 H ALT 934 H Alkaline Phosphatase 142 H Lactate Dehydrogenase Troponin T C-Reactive Protein NT-Pro-B Natriuret Pep Total Protein 5.0 L Albumin 2.6 L LDL Cholesterol Direct Vitamin B12 Crossmatch 11/07/21 11/07/21 11/07/21 03:30 04:50 08:07 WBC RBC Hgb Hct MCV MCH MCHC RDW Plt Count Seg Neuts % (Manual) Lymphocytes % (Manual) Seg Neutrophils # Man Lymphocytes # (Manual) Monocytes # (Manual) PT INR D-Dimer ABG pH ABG pO2 296.9 H ABG HCO3 18.1 L ABG O2 Saturation 99.5 H ABG Base Excess -5.9 L ABG Hemoglobin 7.6 L Oxyhemoglobin Sodium Potassium Chloride Carbon Dioxide BUN Glucose POC Glucose 106 H 108 H Lactic Acid Calcium Phosphorus Magnesium AST ALT Alkaline Phosphatase Lactate Dehydrogenase Troponin T C-Reactive Protein NT-Pro-B Natriuret Pep Total Protein Albumin LDL Cholesterol Direct Vitamin B12 Crossmatch 11/08/21 11/08/21 11/08/21 03:10 18:05 23:43 WBC RBC Hgb Hct MCV MCH MCHC RDW Plt Count Seg Neuts % (Manual) Lymphocytes % (Manual) Seg Neutrophils # Man Lymphocytes # (Manual) Monocytes # (Manual) PT INR D-Dimer ABG pH ABG pO2 127.4 H ABG HCO3 ABG O2 Saturation ABG Base Excess -3.4 L ABG Hemoglobin 7.4 L Oxyhemoglobin Sodium Potassium Chloride Carbon Dioxide BUN Glucose POC Glucose 113 H 141 H Lactic Acid Calcium Phosphorus Magnesium AST ALT Alkaline Phosphatase Lactate Dehydrogenase Troponin T C-Reactive Protein NT-Pro-B Natriuret Pep Total Protein Albumin LDL Cholesterol Direct Vitamin B12 Crossmatch 11/08/21 11/08/21 11/09/21 Unknown Unknown 02:00 WBC 14.5 H RBC 3.35 L Hgb 7.5 L 8.1 L Hct 25.4 L 27.6 L MCV 76 L 76 L MCH 23 L 22 L MCHC RDW 19.9 H 19.9 H Plt Count Seg Neuts % (Manual) Lymphocytes % (Manual) Seg Neutrophils # Man Lymphocytes # (Manual) Monocytes # (Manual) PT INR D-Dimer ABG pH ABG pO2 ABG HCO3 ABG O2 Saturation ABG Base Excess ABG Hemoglobin Oxyhemoglobin Sodium 154 H D Potassium 3.3 L Chloride 120.7 H Carbon Dioxide 20 L BUN 38 H Glucose POC Glucose Lactic Acid Calcium 8.3 L Phosphorus Magnesium AST ALT Alkaline Phosphatase Lactate Dehydrogenase Troponin T C-Reactive Protein NT-Pro-B Natriuret Pep Total Protein Albumin LDL Cholesterol Direct Vitamin B12 Crossmatch 11/09/21 11/09/21 11/09/21 02:00 02:31 05:12 WBC RBC Hgb Hct MCV MCH MCHC RDW Plt Count Seg Neuts % (Manual) Lymphocytes % (Manual) Seg Neutrophils # Man Lymphocytes # (Manual) Monocytes # (Manual) PT INR D-Dimer ABG pH 7.479 H ABG pO2 121.3 H ABG HCO3 ABG O2 Saturation ABG Base Excess ABG Hemoglobin 7.3 L Oxyhemoglobin Sodium Potassium Chloride 112.5 H Carbon Dioxide BUN 33 H Glucose 161 H POC Glucose 135 H Lactic Acid Calcium Phosphorus Magnesium AST 251 H ALT 481 H Alkaline Phosphatase Lactate Dehydrogenase Troponin T C-Reactive Protein NT-Pro-B Natriuret Pep Total Protein 5.0 L Albumin 2.8 L LDL Cholesterol Direct Vitamin B12 Crossmatch 11/09/21 11/09/21 11/09/21 11:33 16:32 23:28 WBC RBC Hgb Hct MCV MCH MCHC RDW Plt Count Seg Neuts % (Manual) Lymphocytes % (Manual) Seg Neutrophils # Man Lymphocytes # (Manual) Monocytes # (Manual) PT INR D-Dimer ABG pH ABG pO2 ABG HCO3 ABG O2 Saturation ABG Base Excess ABG Hemoglobin Oxyhemoglobin Sodium Potassium Chloride Carbon Dioxide BUN Glucose POC Glucose 132 H 133 H 143 H Lactic Acid Calcium Phosphorus Magnesium AST ALT Alkaline Phosphatase Lactate Dehydrogenase Troponin T C-Reactive Protein NT-Pro-B Natriuret Pep Total Protein Albumin LDL Cholesterol Direct Vitamin B12 Crossmatch 11/10/21 11/10/21 11/10/21 04:00 04:00 05:35 WBC 16.0 H RBC 3.61 L Hgb 8.0 L Hct 27.1 L MCV 75 L MCH 22 L MCHC RDW 20.4 H Plt Count Seg Neuts % (Manual) Lymphocytes % (Manual) Seg Neutrophils # Man Lymphocytes # (Manual) Monocytes # (Manual) PT INR D-Dimer ABG pH ABG pO2 ABG HCO3 ABG O2 Saturation ABG Base Excess ABG Hemoglobin Oxyhemoglobin Sodium 149 H Potassium Chloride 114.1 H Carbon Dioxide BUN 31 H Glucose 148 H POC Glucose 132 H Lactic Acid Calcium 8.2 L Phosphorus Magnesium AST ALT Alkaline Phosphatase Lactate Dehydrogenase Troponin T C-Reactive Protein NT-Pro-B Natriuret Pep Total Protein Albumin LDL Cholesterol Direct Vitamin B12 Crossmatch 11/10/21 11/10/21 11/10/21 11:31 14:08 15:35 WBC RBC Hgb Hct MCV MCH MCHC RDW Plt Count Seg Neuts % (Manual) Lymphocytes % (Manual) Seg Neutrophils # Man Lymphocytes # (Manual) Monocytes # (Manual) PT INR D-Dimer ABG pH ABG pO2 126.6 H ABG HCO3 ABG O2 Saturation ABG Base Excess ABG Hemoglobin 7.4 L Oxyhemoglobin Sodium Potassium Chloride Carbon Dioxide BUN Glucose POC Glucose 147 H Lactic Acid Calcium Phosphorus Magnesium AST ALT Alkaline Phosphatase Lactate Dehydrogenase Troponin T C-Reactive Protein NT-Pro-B Natriuret Pep Total Protein Albumin LDL Cholesterol Direct Vitamin B12 1823 H Crossmatch 11/10/21 11/11/21 11/11/21 17:53 00:55 04:28 WBC RBC Hgb Hct MCV MCH MCHC RDW Plt Count Seg Neuts % (Manual) Lymphocytes % (Manual) Seg Neutrophils # Man Lymphocytes # (Manual) Monocytes # (Manual) PT INR D-Dimer ABG pH ABG pO2 ABG HCO3 ABG O2 Saturation ABG Base Excess ABG Hemoglobin Oxyhemoglobin Sodium 149 H Potassium Chloride 112.2 H Carbon Dioxide BUN 34 H Glucose 148 H POC Glucose 140 H 145 H Lactic Acid Calcium 7.9 L Phosphorus Magnesium AST 53 H ALT 203 H Alkaline Phosphatase Lactate Dehydrogenase Troponin T C-Reactive Protein NT-Pro-B Natriuret Pep Total Protein 4.9 L Albumin 2.6 L LDL Cholesterol Direct Vitamin B12 Crossmatch 11/11/21 11/11/21 11/11/21 04:28 04:28 05:28 WBC 20.9 H RBC 3.47 L Hgb 7.5 L Hct 26.0 L MCV 75 L MCH 22 L MCHC 29 L RDW 21.6 H Plt Count 132 L Seg Neuts % (Manual) Lymphocytes % (Manual) Seg Neutrophils # Man Lymphocytes # (Manual) Monocytes # (Manual) PT INR D-Dimer 2655.00 H ABG pH ABG pO2 ABG HCO3 ABG O2 Saturation ABG Base Excess ABG Hemoglobin Oxyhemoglobin Sodium Potassium Chloride Carbon Dioxide BUN Glucose POC Glucose 154 H Lactic Acid Calcium Phosphorus Magnesium AST ALT Alkaline Phosphatase Lactate Dehydrogenase Troponin T C-Reactive Protein NT-Pro-B Natriuret Pep Total Protein Albumin LDL Cholesterol Direct Vitamin B12 Crossmatch 11/11/21 11/11/21 11/12/21 12:38 18:13 00:14 WBC RBC Hgb Hct MCV MCH MCHC RDW Plt Count Seg Neuts % (Manual) Lymphocytes % (Manual) Seg Neutrophils # Man Lymphocytes # (Manual) Monocytes # (Manual) PT INR D-Dimer ABG pH ABG pO2 ABG HCO3 ABG O2 Saturation ABG Base Excess ABG Hemoglobin Oxyhemoglobin Sodium Potassium Chloride Carbon Dioxide BUN Glucose POC Glucose 137 H 108 H 137 H Lactic Acid Calcium Phosphorus Magnesium AST ALT Alkaline Phosphatase Lactate Dehydrogenase Troponin T C-Reactive Protein NT-Pro-B Natriuret Pep Total Protein Albumin LDL Cholesterol Direct Vitamin B12 Crossmatch 11/12/21 11/12/21 11/12/21 05:40 06:24 11:12 WBC RBC Hgb Hct MCV MCH MCHC RDW Plt Count Seg Neuts % (Manual) Lymphocytes % (Manual) Seg Neutrophils # Man Lymphocytes # (Manual) Monocytes # (Manual) PT INR D-Dimer ABG pH 7.586 H ABG pO2 150.6 H ABG HCO3 27.2 H ABG O2 Saturation 99.1 H ABG Base Excess 5.2 H ABG Hemoglobin 7.5 L Oxyhemoglobin Sodium Potassium Chloride Carbon Dioxide BUN Glucose POC Glucose 132 H 140 H Lactic Acid Calcium Phosphorus Magnesium AST ALT Alkaline Phosphatase Lactate Dehydrogenase Troponin T C-Reactive Protein NT-Pro-B Natriuret Pep Total Protein Albumin LDL Cholesterol Direct Vitamin B12 Crossmatch 11/12/21 11/12/21 11/12/21 14:50 14:50 17:13 WBC 19.8 H RBC 3.27 L Hgb 7.1 L Hct 24.5 L MCV 75 L MCH 22 L MCHC 29 L RDW 22.3 H Plt Count Seg Neuts % (Manual) Lymphocytes % (Manual) Seg Neutrophils # Man Lymphocytes # (Manual) Monocytes # (Manual) PT INR D-Dimer ABG pH ABG pO2 ABG HCO3 ABG O2 Saturation ABG Base Excess ABG Hemoglobin Oxyhemoglobin Sodium 150 H Potassium 3.3 L Chloride 112.0 H Carbon Dioxide BUN 40 H Glucose 151 H POC Glucose 121 H Lactic Acid Calcium 7.4 L Phosphorus 1.70 L Magnesium 1.40 L AST ALT Alkaline Phosphatase Lactate Dehydrogenase Troponin T C-Reactive Protein NT-Pro-B Natriuret Pep Total Protein Albumin LDL Cholesterol Direct Vitamin B12 Crossmatch 11/12/21 11/13/21 11/13/21 23:19 05:34 06:30 WBC RBC Hgb Hct MCV MCH MCHC RDW Plt Count Seg Neuts % (Manual) Lymphocytes % (Manual) Seg Neutrophils # Man Lymphocytes # (Manual) Monocytes # (Manual) PT INR D-Dimer ABG pH ABG pO2 ABG HCO3 ABG O2 Saturation ABG Base Excess ABG Hemoglobin Oxyhemoglobin Sodium 149 H Potassium Chloride 60.0 L Carbon Dioxide BUN 40 H Glucose 146 H POC Glucose 113 H 132 H Lactic Acid Calcium 7.3 L Phosphorus Magnesium 2.40 H AST ALT 72 H Alkaline Phosphatase Lactate Dehydrogenase Troponin T C-Reactive Protein NT-Pro-B Natriuret Pep Total Protein 5.2 L Albumin 2.2 L LDL Cholesterol Direct Vitamin B12 Crossmatch 11/13/21 11/13/21 11/13/21 06:30 08:30 11:19 WBC 21.2 H RBC 3.12 L Hgb 6.8 L Hct 23.2 L MCV 74 L MCH 22 L MCHC 29 L RDW 22.2 H Plt Count 135 L Seg Neuts % (Manual) Lymphocytes % (Manual) Seg Neutrophils # Man Lymphocytes # (Manual) Monocytes # (Manual) PT INR D-Dimer ABG pH ABG pO2 ABG HCO3 ABG O2 Saturation ABG Base Excess ABG Hemoglobin Oxyhemoglobin Sodium Potassium Chloride Carbon Dioxide BUN Glucose POC Glucose 136 H Lactic Acid Calcium Phosphorus Magnesium AST ALT Alkaline Phosphatase Lactate Dehydrogenase Troponin T C-Reactive Protein NT-Pro-B Natriuret Pep Total Protein Albumin LDL Cholesterol Direct Vitamin B12 Crossmatch See Detail 11/13/21 11/14/21 11/14/21 18:21 00:01 04:46 WBC 20.0 H RBC 3.41 L Hgb 7.9 L Hct 26.8 L MCV MCH 23 L MCHC 29 L RDW 24.0 H Plt Count Seg Neuts % (Manual) Lymphocytes % (Manual) Seg Neutrophils # Man Lymphocytes # (Manual) Monocytes # (Manual) PT INR D-Dimer ABG pH ABG pO2 ABG HCO3 ABG O2 Saturation ABG Base Excess ABG Hemoglobin Oxyhemoglobin Sodium Potassium Chloride Carbon Dioxide BUN Glucose POC Glucose 149 H 141 H Lactic Acid Calcium Phosphorus Magnesium AST ALT Alkaline Phosphatase Lactate Dehydrogenase Troponin T C-Reactive Protein NT-Pro-B Natriuret Pep Total Protein Albumin LDL Cholesterol Direct Vitamin B12 Crossmatch 11/14/21 11/14/21 11/14/21 04:46 05:10 11:10 WBC RBC Hgb Hct MCV MCH MCHC RDW Plt Count Seg Neuts % (Manual) Lymphocytes % (Manual) Seg Neutrophils # Man Lymphocytes # (Manual) Monocytes # (Manual) PT INR D-Dimer ABG pH ABG pO2 ABG HCO3 ABG O2 Saturation ABG Base Excess ABG Hemoglobin Oxyhemoglobin Sodium 148 H Potassium Chloride 113.1 H Carbon Dioxide BUN 43 H Glucose 140 H POC Glucose 132 H 133 H Lactic Acid Calcium 7.5 L Phosphorus Magnesium AST ALT Alkaline Phosphatase Lactate Dehydrogenase Troponin T C-Reactive Protein NT-Pro-B Natriuret Pep Total Protein Albumin LDL Cholesterol Direct Vitamin B12 Crossmatch
--- NOTE | 2021-11-14 13:51 | Progress Note ---
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 - placed on SBT - get ABG after 2 hours on SBT - rest on AC qhs for now till meeting weaning criteria better - s/p 1 unit PRBC yesterday with appropriate rise in Hb level - continue free water supplementation - wean Levophed for target MAP > 65 mmHg - continue treatment dose Lovenox for DVT - continue care as below otherwise; - Daily SAT and SBT assessment as tolerated - continue to wean supplemental oxygen for target O2 sat's > 90% acutely - VAP bundle addressed - continue lung protective strategies - continue bronchodilators with pulmonary hygiene per RT - wean per pulmonary driven protocols otherwise - avoid nephrotoxins, renally dose all medications - continue accuchecks with glycemic control per SSI (While critically ill target blood glucose of 140-180 mg/dL; avoid hypoglycemia) - sedation prn for target RASS 0 to -1 - antibiotics per ID recommendations - continue to avoid benzodiazepine's, reduce the possibility of delirium - prn analgesia per CPOT score - Maintenance of sleep-wake cycle, avoid delirium - continue enteral nutritional support at goal rate as tolerated - G.I. & VTE prophylaxis - PT/OT/ROM exercises - continue mobility protocols for pressure ulcer prophylaxis - Monitor hemodynamics closely - continue other care per attending / other consultants - discharge planning ongoing concurrently COVID SPECIFIC INTERVENTIONS - COVID-19 PCR negative .... Re-evaluate in am & prn CONDITION: CRITICAL PROGNOSIS: GUARDED CODE STATUS: FULL CODE The high probability of a clinically significant, sudden or life-threatening deterioration of the [respiratory, cardiovascular & neurologic] system(s) required my full and direct attention, intervention and personal management. The aggregate critical care time was [35] minutes without overlap. Time includes spent on; [x] Data Review and interpretation [x] Patient assessment and monitoring of vital signs [x] Documentation [x] Medication orders and management Subjective Date of service: 11/14/21 Principal diagnosis: Septic shock; AHRF; Anemia; Pneumonia; L. pleural effusion; HFrEF; Pulm HTN Interval history: Patient is seen today for: Septic shock; Acute hypoxemic respiratory failure; Anemia; Bilateral pneumonia; Left pleural effusion; HFrEF 30-35%; Pulm HTN RVSP 49 Seen and examined at bedside; 24hour events reviewed; nursing and respiratory care staff consulted; no adverse overnight events reported to me; resting in bed; remains on MVS; follows simple commands; complains of pain despite fentanyl drip @ 3 nicole's/kg/hr; tolerated bedside SBT decently but with p-supp at 20 cm H2O Objective Vital Signs - 12hr 11/14/21 11/14/21 11/14/21 02:00 02:15 02:30 Temperature Pulse Rate 87 83 87 Pulse Rate [ From Monitor] Respiratory 16 15 18 Rate Blood Pressure 119/59 123/61 129/60 O2 Sat by Pulse 98 97 99 Oximetry 11/14/21 11/14/21 11/14/21 02:45 03:00 03:15 Temperature Pulse Rate 86 86 82 Pulse Rate [ From Monitor] Respiratory 14 19 15 Rate Blood Pressure 121/61 122/55 118/49 O2 Sat by Pulse 100 98 98 Oximetry 11/14/21 11/14/21 11/14/21 03:30 03:42 03:45 Temperature Pulse Rate 84 85 Pulse Rate [ 84 From Monitor] Respiratory 16 19 11 L Rate Blood Pressure 123/53 122/56 O2 Sat by Pulse 97 99 98 Oximetry 11/14/21 11/14/21 11/14/21 04:00 04:10 04:15 Temperature 98.6 F Pulse Rate 80 85 79 Pulse Rate [ From Monitor] Respiratory 15 2 L 14 Rate Blood Pressure 107/49 114/50 105/50 O2 Sat by Pulse 98 98 96 Oximetry 11/14/21 11/14/21 11/14/21 04:30 04:45 05:00 Temperature Pulse Rate 83 81 83 Pulse Rate [ From Monitor] Respiratory 14 14 16 Rate Blood Pressure 107/47 114/50 120/54 O2 Sat by Pulse 97 98 98 Oximetry 11/14/21 11/14/21 11/14/21 05:15 05:31 05:45 Temperature Pulse Rate 89 94 H 97 H Pulse Rate [ From Monitor] Respiratory 13 13 12 Rate Blood Pressure 120/54 122/70 122/70 O2 Sat by Pulse 98 99 93 Oximetry 11/14/21 11/14/21 11/14/21 06:00 06:15 06:30 Temperature Pulse Rate 103 H 95 H 97 H Pulse Rate [ From Monitor] Respiratory 19 15 19 Rate Blood Pressure 138/71 117/51 130/66 O2 Sat by Pulse 98 100 98 Oximetry 11/14/21 11/14/21 11/14/21 06:45 07:00 07:15 Temperature Pulse Rate 87 83 80 Pulse Rate [ From Monitor] Respiratory 15 16 15 Rate Blood Pressure 130/66 96/42 95/41 O2 Sat by Pulse 97 96 96 Oximetry 11/14/21 11/14/21 11/14/21 07:30 07:45 08:00 Temperature 98.0 F Pulse Rate 78 79 89 Pulse Rate [ From Monitor] Respiratory 15 15 17 Rate Blood Pressure 100/43 108/51 114/50 O2 Sat by Pulse 96 98 97 Oximetry 11/14/21 11/14/21 11/14/21 08:15 08:30 08:45 Temperature Pulse Rate 77 76 88 Pulse Rate [ From Monitor] Respiratory 16 15 15 Rate Blood Pressure 100/42 96/39 96/39 O2 Sat by Pulse 97 97 99 Oximetry 11/14/21 11/14/21 11/14/21 09:01 09:15 09:30 Temperature Pulse Rate 86 94 H 82 Pulse Rate [ From Monitor] Respiratory 14 15 15 Rate Blood Pressure 121/52 121/52 111/50 O2 Sat by Pulse 99 100 98 Oximetry 11/14/21 11/14/21 11/14/21 09:45 10:01 10:15 Temperature Pulse Rate 91 H 92 H 87 Pulse Rate [ From Monitor] Respiratory 11 L 13 14 Rate Blood Pressure 111/50 130/51 131/50 O2 Sat by Pulse 100 99 98 Oximetry 11/14/21 11/14/21 11/14/21 10:31 10:45 11:01 Temperature Pulse Rate 85 85 89 Pulse Rate [ From Monitor] Respiratory 13 15 14 Rate Blood Pressure 147/48 127/46 117/54 O2 Sat by Pulse 98 98 98 Oximetry 11/14/21 11/14/21 11/14/21 11:15 11:30 11:45 Temperature Pulse Rate 78 76 74 Pulse Rate [ From Monitor] Respiratory 15 14 15 Rate Blood Pressure 117/54 94/39 90/36 O2 Sat by Pulse 97 97 97 Oximetry 11/14/21 11/14/21 11/14/21 12:00 12:15 12:58 Temperature 98.7 F Pulse Rate 80 75 77 Pulse Rate [ From Monitor] Respiratory 14 17 Rate Blood Pressure 96/41 88/36 108/51 O2 Sat by Pulse 98 98 100 Oximetry Constitutional: appears uncomfortable, other (ETT to MVS, frail elderly woman with mildly increased respiratory effort at rest) Eyes: non-icteric ENT: oropharynx moist, oropharyngeal exudate pre (clear frothy), other (ETT 23 cm ELIZABETH) Neck: supple, no lymphadenopathy, no JVD Effort: normal, mildly labored Ascultation: Bilateral: diminished breath sounds, rhonchi, other (Right chest tube) Percussion: Bilateral: not dull Cardiovascular: regular rate and rhythm, other (S1,S2) Gastrointestinal: normoactive bowel sounds, soft, non-tender, non-distended Integumentary: normal Extremities: no edema, pink and warm, pulses normal, edema (trace) Neurologic: non-focal exam (grossly), pupils equal and round, CN II-XII normal, unable to assess, other (sedated) Psychiatric: other (sedated) CBC and BMP: 11/14/21 04:46 11/14/21 04:46 ABG, PT/INR, D-dimer: ABG ABG pH 7.586 pH Units (7.350-7.450) H 11/12/21 05:40 ABG pCO2 29.2 mm Hg 11/12/21 05:40 ABG pO2 150.6 mm Hg (80.0-90.0) H 11/12/21 05:40 ABG O2 Saturation 99.1 % (95.0-99.0) H 11/12/21 05:40 PT/INR, D-dimer PT 18.6 Sec. (12.2-14.9) H 11/03/21 22:32 INR 1.40 (0.87-1.13) H 11/03/21 22:32 D-Dimer 2655.00 ng/mlDDU (0-234) H 11/11/21 04:28 Abnormal lab findings: Abnormal Labs 11/03/21 11/03/21 11/03/21 22:32 22:32 22:32 WBC 29.3 H RBC 2.93 L Hgb 6.1 L Hct 21.9 L MCV 75 L MCH 21 L MCHC 28 L RDW 19.7 H Plt Count Seg Neuts % (Manual) 97.0 H Lymphocytes % (Manual) 3.0 L Seg Neutrophils # Man 28.4 H Lymphocytes # (Manual) 0.9 L Monocytes # (Manual) PT 18.6 H INR 1.40 H D-Dimer ABG pH ABG pO2 ABG HCO3 ABG O2 Saturation ABG Base Excess ABG Hemoglobin Oxyhemoglobin Sodium Potassium Chloride Carbon Dioxide 20 L BUN 33 H Glucose 119 H POC Glucose Lactic Acid Calcium 8.3 L Phosphorus Magnesium AST ALT Alkaline Phosphatase Lactate Dehydrogenase Troponin T 0.035 H C-Reactive Protein NT-Pro-B Natriuret Pep Total Protein Albumin LDL Cholesterol Direct 34 L Vitamin B12 Crossmatch 11/03/21 11/03/21 11/03/21 22:32 22:32 23:57 WBC RBC Hgb Hct MCV MCH MCHC RDW Plt Count Seg Neuts % (Manual) Lymphocytes % (Manual) Seg Neutrophils # Man Lymphocytes # (Manual) Monocytes # (Manual) PT INR D-Dimer ABG pH ABG pO2 ABG HCO3 ABG O2 Saturation ABG Base Excess ABG Hemoglobin Oxyhemoglobin Sodium Potassium Chloride Carbon Dioxide BUN Glucose POC Glucose Lactic Acid 3.70 H* Calcium Phosphorus Magnesium AST ALT Alkaline Phosphatase 139 H Lactate Dehydrogenase Troponin T C-Reactive Protein NT-Pro-B Natriuret Pep 7895 H Total Protein Albumin 3.5 L LDL Cholesterol Direct Vitamin B12 Crossmatch See Detail 11/04/21 11/04/21 11/05/21 00:59 13:58 00:51 WBC 27.9 H RBC 3.28 L Hgb 7.3 L Hct 25.5 L MCV 78 L MCH 22 L MCHC 29 L RDW 19.1 H Plt Count Seg Neuts % (Manual) 96.0 H Lymphocytes % (Manual) 2.0 L Seg Neutrophils # Man 26.8 H Lymphocytes # (Manual) 0.6 L Monocytes # (Manual) PT INR D-Dimer ABG pH ABG pO2 ABG HCO3 ABG O2 Saturation ABG Base Excess ABG Hemoglobin Oxyhemoglobin Sodium Potassium Chloride Carbon Dioxide BUN Glucose POC Glucose Lactic Acid Calcium Phosphorus Magnesium AST ALT Alkaline Phosphatase Lactate Dehydrogenase Troponin T 0.051 H D 0.032 H D C-Reactive Protein NT-Pro-B Natriuret Pep Total Protein Albumin LDL Cholesterol Direct Vitamin B12 Crossmatch 11/05/21 11/05/21 11/05/21 06:11 06:11 06:11 WBC 31.8 H RBC 3.57 L Hgb 8.0 L Hct 27.7 L MCV 78 L MCH 22 L MCHC 29 L RDW 19.2 H Plt Count Seg Neuts % (Manual) 91.0 H Lymphocytes % (Manual) 4.5 L Seg Neutrophils # Man 28.9 H Lymphocytes # (Manual) Monocytes # (Manual) 1.1 H PT INR D-Dimer 1494.53 H ABG pH ABG pO2 ABG HCO3 ABG O2 Saturation ABG Base Excess ABG Hemoglobin Oxyhemoglobin Sodium Potassium Chloride Carbon Dioxide 19 L BUN 42 H Glucose 115 H POC Glucose Lactic Acid Calcium Phosphorus Magnesium AST 43 H ALT Alkaline Phosphatase Lactate Dehydrogenase 187 H Troponin T C-Reactive Protein 22.20 H NT-Pro-B Natriuret Pep Total Protein 6.0 L Albumin 3.2 L LDL Cholesterol Direct Vitamin B12 Crossmatch 11/05/21 11/05/21 11/06/21 06:11 12:15 00:30 WBC RBC Hgb Hct MCV MCH MCHC RDW Plt Count Seg Neuts % (Manual) Lymphocytes % (Manual) Seg Neutrophils # Man Lymphocytes # (Manual) Monocytes # (Manual) PT INR D-Dimer ABG pH ABG pO2 ABG HCO3 ABG O2 Saturation ABG Base Excess ABG Hemoglobin Oxyhemoglobin Sodium Potassium Chloride Carbon Dioxide BUN Glucose POC Glucose 113 H 69 L Lactic Acid Calcium Phosphorus Magnesium AST ALT Alkaline Phosphatase Lactate Dehydrogenase Troponin T 0.033 H C-Reactive Protein NT-Pro-B Natriuret Pep Total Protein Albumin LDL Cholesterol Direct Vitamin B12 Crossmatch 11/06/21 11/06/21 11/06/21 05:50 15:50 15:50 WBC 25.5 H RBC 3.62 L Hgb 8.0 L Hct 27.5 L MCV 76 L MCH 22 L MCHC 29 L RDW 19.6 H Plt Count Seg Neuts % (Manual) 92.0 H Lymphocytes % (Manual) 5.0 L Seg Neutrophils # Man 23.5 H Lymphocytes # (Manual) Monocytes # (Manual) PT INR D-Dimer ABG pH 7.305 L ABG pO2 ABG HCO3 15.8 L ABG O2 Saturation ABG Base Excess -9.6 L ABG Hemoglobin 8.6 L Oxyhemoglobin 94.6 L Sodium Potassium Chloride 113.9 H Carbon Dioxide 17 L BUN 56 H Glucose 114 H POC Glucose Lactic Acid Calcium 7.9 L Phosphorus Magnesium AST 1410 H ALT 934 H Alkaline Phosphatase 142 H Lactate Dehydrogenase Troponin T C-Reactive Protein NT-Pro-B Natriuret Pep Total Protein 5.0 L Albumin 2.6 L LDL Cholesterol Direct Vitamin B12 Crossmatch 11/07/21 11/07/21 11/07/21 03:30 04:50 08:07 WBC RBC Hgb Hct MCV MCH MCHC RDW Plt Count Seg Neuts % (Manual) Lymphocytes % (Manual) Seg Neutrophils # Man Lymphocytes # (Manual) Monocytes # (Manual) PT INR D-Dimer ABG pH ABG pO2 296.9 H ABG HCO3 18.1 L ABG O2 Saturation 99.5 H ABG Base Excess -5.9 L ABG Hemoglobin 7.6 L Oxyhemoglobin Sodium Potassium Chloride Carbon Dioxide BUN Glucose POC Glucose 106 H 108 H Lactic Acid Calcium Phosphorus Magnesium AST ALT Alkaline Phosphatase Lactate Dehydrogenase Troponin T C-Reactive Protein NT-Pro-B Natriuret Pep Total Protein Albumin LDL Cholesterol Direct Vitamin B12 Crossmatch 11/08/21 11/08/21 11/08/21 03:10 18:05 23:43 WBC RBC Hgb Hct MCV MCH MCHC RDW Plt Count Seg Neuts % (Manual) Lymphocytes % (Manual) Seg Neutrophils # Man Lymphocytes # (Manual) Monocytes # (Manual) PT INR D-Dimer ABG pH ABG pO2 127.4 H ABG HCO3 ABG O2 Saturation ABG Base Excess -3.4 L ABG Hemoglobin 7.4 L Oxyhemoglobin Sodium Potassium Chloride Carbon Dioxide BUN Glucose POC Glucose 113 H 141 H Lactic Acid Calcium Phosphorus Magnesium AST ALT Alkaline Phosphatase Lactate Dehydrogenase Troponin T C-Reactive Protein NT-Pro-B Natriuret Pep Total Protein Albumin LDL Cholesterol Direct Vitamin B12 Crossmatch 11/08/21 11/08/21 11/09/21 Unknown Unknown 02:00 WBC 14.5 H RBC 3.35 L Hgb 7.5 L 8.1 L Hct 25.4 L 27.6 L MCV 76 L 76 L MCH 23 L 22 L MCHC RDW 19.9 H 19.9 H Plt Count Seg Neuts % (Manual) Lymphocytes % (Manual) Seg Neutrophils # Man Lymphocytes # (Manual) Monocytes # (Manual) PT INR D-Dimer ABG pH ABG pO2 ABG HCO3 ABG O2 Saturation ABG Base Excess ABG Hemoglobin Oxyhemoglobin Sodium 154 H D Potassium 3.3 L Chloride 120.7 H Carbon Dioxide 20 L BUN 38 H Glucose POC Glucose Lactic Acid Calcium 8.3 L Phosphorus Magnesium AST ALT Alkaline Phosphatase Lactate Dehydrogenase Troponin T C-Reactive Protein NT-Pro-B Natriuret Pep Total Protein Albumin LDL Cholesterol Direct Vitamin B12 Crossmatch 11/09/21 11/09/21 11/09/21 02:00 02:31 05:12 WBC RBC Hgb Hct MCV MCH MCHC RDW Plt Count Seg Neuts % (Manual) Lymphocytes % (Manual) Seg Neutrophils # Man Lymphocytes # (Manual) Monocytes # (Manual) PT INR D-Dimer ABG pH 7.479 H ABG pO2 121.3 H ABG HCO3 ABG O2 Saturation ABG Base Excess ABG Hemoglobin 7.3 L Oxyhemoglobin Sodium Potassium Chloride 112.5 H Carbon Dioxide BUN 33 H Glucose 161 H POC Glucose 135 H Lactic Acid Calcium Phosphorus Magnesium AST 251 H ALT 481 H Alkaline Phosphatase Lactate Dehydrogenase Troponin T C-Reactive Protein NT-Pro-B Natriuret Pep Total Protein 5.0 L Albumin 2.8 L LDL Cholesterol Direct Vitamin B12 Crossmatch 11/09/21 11/09/21 11/09/21 11:33 16:32 23:28 WBC RBC Hgb Hct MCV MCH MCHC RDW Plt Count Seg Neuts % (Manual) Lymphocytes % (Manual) Seg Neutrophils # Man Lymphocytes # (Manual) Monocytes # (Manual) PT INR D-Dimer ABG pH ABG pO2 ABG HCO3 ABG O2 Saturation ABG Base Excess ABG Hemoglobin Oxyhemoglobin Sodium Potassium Chloride Carbon Dioxide BUN Glucose POC Glucose 132 H 133 H 143 H Lactic Acid Calcium Phosphorus Magnesium AST ALT Alkaline Phosphatase Lactate Dehydrogenase Troponin T C-Reactive Protein NT-Pro-B Natriuret Pep Total Protein Albumin LDL Cholesterol Direct Vitamin B12 Crossmatch 11/10/21 11/10/21 11/10/21 04:00 04:00 05:35 WBC 16.0 H RBC 3.61 L Hgb 8.0 L Hct 27.1 L MCV 75 L MCH 22 L MCHC RDW 20.4 H Plt Count Seg Neuts % (Manual) Lymphocytes % (Manual) Seg Neutrophils # Man Lymphocytes # (Manual) Monocytes # (Manual) PT INR D-Dimer ABG pH ABG pO2 ABG HCO3 ABG O2 Saturation ABG Base Excess ABG Hemoglobin Oxyhemoglobin Sodium 149 H Potassium Chloride 114.1 H Carbon Dioxide BUN 31 H Glucose 148 H POC Glucose 132 H Lactic Acid Calcium 8.2 L Phosphorus Magnesium AST ALT Alkaline Phosphatase Lactate Dehydrogenase Troponin T C-Reactive Protein NT-Pro-B Natriuret Pep Total Protein Albumin LDL Cholesterol Direct Vitamin B12 Crossmatch 11/10/21 11/10/21 11/10/21 11:31 14:08 15:35 WBC RBC Hgb Hct MCV MCH MCHC RDW Plt Count Seg Neuts % (Manual) Lymphocytes % (Manual) Seg Neutrophils # Man Lymphocytes # (Manual) Monocytes # (Manual) PT INR D-Dimer ABG pH ABG pO2 126.6 H ABG HCO3 ABG O2 Saturation ABG Base Excess ABG Hemoglobin 7.4 L Oxyhemoglobin Sodium Potassium Chloride Carbon Dioxide BUN Glucose POC Glucose 147 H Lactic Acid Calcium Phosphorus Magnesium AST ALT Alkaline Phosphatase Lactate Dehydrogenase Troponin T C-Reactive Protein NT-Pro-B Natriuret Pep Total Protein Albumin LDL Cholesterol Direct Vitamin B12 1823 H Crossmatch 11/10/21 11/11/21 11/11/21 17:53 00:55 04:28 WBC RBC Hgb Hct MCV MCH MCHC RDW Plt Count Seg Neuts % (Manual) Lymphocytes % (Manual) Seg Neutrophils # Man Lymphocytes # (Manual) Monocytes # (Manual) PT INR D-Dimer ABG pH ABG pO2 ABG HCO3 ABG O2 Saturation ABG Base Excess ABG Hemoglobin Oxyhemoglobin Sodium 149 H Potassium Chloride 112.2 H Carbon Dioxide BUN 34 H Glucose 148 H POC Glucose 140 H 145 H Lactic Acid Calcium 7.9 L Phosphorus Magnesium AST 53 H ALT 203 H Alkaline Phosphatase Lactate Dehydrogenase Troponin T C-Reactive Protein NT-Pro-B Natriuret Pep Total Protein 4.9 L Albumin 2.6 L LDL Cholesterol Direct Vitamin B12 Crossmatch 11/11/21 11/11/21 11/11/21 04:28 04:28 05:28 WBC 20.9 H RBC 3.47 L Hgb 7.5 L Hct 26.0 L MCV 75 L MCH 22 L MCHC 29 L RDW 21.6 H Plt Count 132 L Seg Neuts % (Manual) Lymphocytes % (Manual) Seg Neutrophils # Man Lymphocytes # (Manual) Monocytes # (Manual) PT INR D-Dimer 2655.00 H ABG pH ABG pO2 ABG HCO3 ABG O2 Saturation ABG Base Excess ABG Hemoglobin Oxyhemoglobin Sodium Potassium Chloride Carbon Dioxide BUN Glucose POC Glucose 154 H Lactic Acid Calcium Phosphorus Magnesium AST ALT Alkaline Phosphatase Lactate Dehydrogenase Troponin T C-Reactive Protein NT-Pro-B Natriuret Pep Total Protein Albumin LDL Cholesterol Direct Vitamin B12 Crossmatch 11/11/21 11/11/21 11/12/21 12:38 18:13 00:14 WBC RBC Hgb Hct MCV MCH MCHC RDW Plt Count Seg Neuts % (Manual) Lymphocytes % (Manual) Seg Neutrophils # Man Lymphocytes # (Manual) Monocytes # (Manual) PT INR D-Dimer ABG pH ABG pO2 ABG HCO3 ABG O2 Saturation ABG Base Excess ABG Hemoglobin Oxyhemoglobin Sodium Potassium Chloride Carbon Dioxide BUN Glucose POC Glucose 137 H 108 H 137 H Lactic Acid Calcium Phosphorus Magnesium AST ALT Alkaline Phosphatase Lactate Dehydrogenase Troponin T C-Reactive Protein NT-Pro-B Natriuret Pep Total Protein Albumin LDL Cholesterol Direct Vitamin B12 Crossmatch 11/12/21 11/12/21 11/12/21 05:40 06:24 11:12 WBC RBC Hgb Hct MCV MCH MCHC RDW Plt Count Seg Neuts % (Manual) Lymphocytes % (Manual) Seg Neutrophils # Man Lymphocytes # (Manual) Monocytes # (Manual) PT INR D-Dimer ABG pH 7.586 H ABG pO2 150.6 H ABG HCO3 27.2 H ABG O2 Saturation 99.1 H ABG Base Excess 5.2 H ABG Hemoglobin 7.5 L Oxyhemoglobin Sodium Potassium Chloride Carbon Dioxide BUN Glucose POC Glucose 132 H 140 H Lactic Acid Calcium Phosphorus Magnesium AST ALT Alkaline Phosphatase Lactate Dehydrogenase Troponin T C-Reactive Protein NT-Pro-B Natriuret Pep Total Protein Albumin LDL Cholesterol Direct Vitamin B12 Crossmatch 11/12/21 11/12/21 11/12/21 14:50 14:50 17:13 WBC 19.8 H RBC 3.27 L Hgb 7.1 L Hct 24.5 L MCV 75 L MCH 22 L MCHC 29 L RDW 22.3 H Plt Count Seg Neuts % (Manual) Lymphocytes % (Manual) Seg Neutrophils # Man Lymphocytes # (Manual) Monocytes # (Manual) PT INR D-Dimer ABG pH ABG pO2 ABG HCO3 ABG O2 Saturation ABG Base Excess ABG Hemoglobin Oxyhemoglobin Sodium 150 H Potassium 3.3 L Chloride 112.0 H Carbon Dioxide BUN 40 H Glucose 151 H POC Glucose 121 H Lactic Acid Calcium 7.4 L Phosphorus 1.70 L Magnesium 1.40 L AST ALT Alkaline Phosphatase Lactate Dehydrogenase Troponin T C-Reactive Protein NT-Pro-B Natriuret Pep Total Protein Albumin LDL Cholesterol Direct Vitamin B12 Crossmatch 11/12/21 11/13/21 11/13/21 23:19 05:34 06:30 WBC RBC Hgb Hct MCV MCH MCHC RDW Plt Count Seg Neuts % (Manual) Lymphocytes % (Manual) Seg Neutrophils # Man Lymphocytes # (Manual) Monocytes # (Manual) PT INR D-Dimer ABG pH ABG pO2 ABG HCO3 ABG O2 Saturation ABG Base Excess ABG Hemoglobin Oxyhemoglobin Sodium 149 H Potassium Chloride 60.0 L Carbon Dioxide BUN 40 H Glucose 146 H POC Glucose 113 H 132 H Lactic Acid Calcium 7.3 L Phosphorus Magnesium 2.40 H AST ALT 72 H Alkaline Phosphatase Lactate Dehydrogenase Troponin T C-Reactive Protein NT-Pro-B Natriuret Pep Total Protein 5.2 L Albumin 2.2 L LDL Cholesterol Direct Vitamin B12 Crossmatch 11/13/21 11/13/21 11/13/21 06:30 08:30 11:19 WBC 21.2 H RBC 3.12 L Hgb 6.8 L Hct 23.2 L MCV 74 L MCH 22 L MCHC 29 L RDW 22.2 H Plt Count 135 L Seg Neuts % (Manual) Lymphocytes % (Manual) Seg Neutrophils # Man Lymphocytes # (Manual) Monocytes # (Manual) PT INR D-Dimer ABG pH ABG pO2 ABG HCO3 ABG O2 Saturation ABG Base Excess ABG Hemoglobin Oxyhemoglobin Sodium Potassium Chloride Carbon Dioxide BUN Glucose POC Glucose 136 H Lactic Acid Calcium Phosphorus Magnesium AST ALT Alkaline Phosphatase Lactate Dehydrogenase Troponin T C-Reactive Protein NT-Pro-B Natriuret Pep Total Protein Albumin LDL Cholesterol Direct Vitamin B12 Crossmatch See Detail 11/13/21 11/14/21 11/14/21 18:21 00:01 04:46 WBC 20.0 H RBC 3.41 L Hgb 7.9 L Hct 26.8 L MCV MCH 23 L MCHC 29 L RDW 24.0 H Plt Count Seg Neuts % (Manual) Lymphocytes % (Manual) Seg Neutrophils # Man Lymphocytes # (Manual) Monocytes # (Manual) PT INR D-Dimer ABG pH ABG pO2 ABG HCO3 ABG O2 Saturation ABG Base Excess ABG Hemoglobin Oxyhemoglobin Sodium Potassium Chloride Carbon Dioxide BUN Glucose POC Glucose 149 H 141 H Lactic Acid Calcium Phosphorus Magnesium AST ALT Alkaline Phosphatase Lactate Dehydrogenase Troponin T C-Reactive Protein NT-Pro-B Natriuret Pep Total Protein Albumin LDL Cholesterol Direct Vitamin B12 Crossmatch 11/14/21 11/14/21 11/14/21 04:46 05:10 11:10 WBC RBC Hgb Hct MCV MCH MCHC RDW Plt Count Seg Neuts % (Manual) Lymphocytes % (Manual) Seg Neutrophils # Man Lymphocytes # (Manual) Monocytes # (Manual) PT INR D-Dimer ABG pH ABG pO2 ABG HCO3 ABG O2 Saturation ABG Base Excess ABG Hemoglobin Oxyhemoglobin Sodium 148 H Potassium Chloride 113.1 H Carbon Dioxide BUN 43 H Glucose 140 H POC Glucose 132 H 133 H Lactic Acid Calcium 7.5 L Phosphorus Magnesium AST ALT Alkaline Phosphatase Lactate Dehydrogenase Troponin T C-Reactive Protein NT-Pro-B Natriuret Pep Total Protein Albumin LDL Cholesterol Direct Vitamin B12 Crossmatch Chest x-ray: pending Allied health notes reviewed: nursing
--- NOTE | 2021-11-14 14:05 | Progress Note ---
Assessment and Plan Cultures: SARS CoV2 PCR: negative 11/03/2021 blood culture: Group B streptococcus 11/04/2021 blood culture: no growth 11/11/2021 blood culture: No growth A/P: 81-year-old female with diabetes mellitus, hypertension, arthritis was admitted with shortness of breath. She was also having fever: #Severe sepsis with shock, secondary to bilateral pneumonia: likely from Group B Strep. COVID-19 negative #Group B Strep bacteremia: Likely secondary to above, no other source identified, other possibility is mild lower extremity cellulitis. Does have indwelling cardiac device, per patient it is a pacemaker. TTE showed no valvular or lead vegetations #Acute hypoxic respiratory failure: Secondary to above. Intubated, on the vent. Recs: -Given fevers and worsening white count escalated to cefepime -Stopped empiric vancomycin -Completed synergistic clindamycin -overall guarded prognosis Mahogany Montes MD [facility] ([facility]) O: [phone] F: [phone] Subjective Date of service: 11/14/21 Principal diagnosis: Septic shock; AHRF; Anemia; Pneumonia; L. pleural effusion; HFrEF; Pulm HTN Interval history: Afebrile, white count 20 today. Is approximately consistent with previous. Cultures remain negative. No other acute changes. Objective - Exam Narrative Exam: Physical exam deferred to reduce risk of transmission of COVID-19. Please refer to primary team's note. - Constitutional Vitals: Vital Signs Temp Pulse Resp BP Pulse Ox 98.7 F 77 17 108/51 100 11/14/21 12:00 11/14/21 12:58 11/14/21 12:20 11/14/21 12:58 11/14/21 12:58 Temperature -Last 24 Hours Temperature 98.7 F Temperature 98.0 F Temperature 98.6 F Temperature 98.8 F Temperature 99.7 F Temperature 99.4 F Temperature 98.8 F - Labs CBC & Chem 7: 11/14/21 04:46 11/14/21 04:46 Labs: Abnormal lab results 11/13/21 11/13/21 11/14/21 Range/Units 08:30 18:21 00:01 WBC (4.5-11.0) K/mm3 RBC (3.65-5.03) M/mm3 Hgb (10.1-14.3) gm/dl Hct (30.3-42.9) % MCH (28-32) pg MCHC (30-34) % RDW (13.2-15.2) % Sodium (137-145) mmol/L Chloride (98-107) mmol/L BUN (7-17) mg/dL Glucose (65-100) mg/dL POC Glucose 149 H 141 H (70-105) mg/dL Calcium (8.4-10.2) mg/dL Crossmatch See Detail 11/14/21 11/14/21 11/14/21 Range/Units 04:46 04:46 05:10 WBC 20.0 H (4.5-11.0) K/mm3 RBC 3.41 L (3.65-5.03) M/mm3 Hgb 7.9 L (10.1-14.3) gm/dl Hct 26.8 L (30.3-42.9) % MCH 23 L (28-32) pg MCHC 29 L (30-34) % RDW 24.0 H (13.2-15.2) % Sodium 148 H (137-145) mmol/L Chloride 113.1 H (98-107) mmol/L BUN 43 H (7-17) mg/dL Glucose 140 H (65-100) mg/dL POC Glucose 132 H (70-105) mg/dL Calcium 7.5 L (8.4-10.2) mg/dL Crossmatch 11/14/21 Range/Units 11:10 WBC (4.5-11.0) K/mm3 RBC (3.65-5.03) M/mm3 Hgb (10.1-14.3) gm/dl Hct (30.3-42.9) % MCH (28-32) pg MCHC (30-34) % RDW (13.2-15.2) % Sodium (137-145) mmol/L Chloride (98-107) mmol/L BUN (7-17) mg/dL Glucose (65-100) mg/dL POC Glucose 133 H (70-105) mg/dL Calcium (8.4-10.2) mg/dL Crossmatch
[2021-11-14 16:30] LABS: ABG Base Excess 3.1 mmol/L (-2.0-3.0); ABG Methemoglobin 0.3 % (0.0-1.5); ABG PCO2 45.6 mm Hg; ABG PH 7.407 pH Units (7.350-7.450); ABG PO2 80.6 mm Hg (80.0-90.0)
--- NOTE | 2021-11-14 18:07 | Progress Note ---
<JASBIR SEVERINO - Last Filed: 11/14/21 18:03> Assessment and Plan Assessment and plan: This is a 81-year-old female with known history of diabetes mellitus, hypertension, PPM, and arthritis admitted for sepsis and acute hypoxia respiratory failure 2/2 bilateral pneumonia requiring intubation and ventilatory support Assessment and Plan Septic shock, POA, bilateral pneumonia, bacteremia -Infectious disease consulted, appreciate recommendations -COVID-19 PCR negative -Presented with fevers, leukocytosis and hypotension -11/04 blood cultures positive with a group B strep bacteremia however repeat blood cultures on the with no growth to date -Echo showed no evidence of vegetation -ABX therapy with ceftriaxone and clindamycin -Completed clindamycin, 2 weeks of ceftriaxone planned (11/04) -Given persistent leukocytosis and fever, escalated to cefepime by ID -Monitor WBC and fever curve -Recultured on 11/11 -Follow-up culture -Bedside bronchoscopy for mucous plug on CXR 11/11 Acute hypoxic respiratory failure secondary to bilateral pneumonia, bilateral pleural effusion. Right pneomothorax -COVID-19 PCR negative -Intubated on 11/06 with 6.00 ETT at 18 at the lip -A.m. vent settings: Assist-control rate 16, tidal volume 350, PEEP 6, FiO2 40% -See RT notes for titration -11/11: Changed over bougie to 7.50 ETT at 22 at the lip -Current vent settings AC, rate 25, tidal and 400, FiO2 100%, PEEP 6 -S/p bedside bronchoscopy on 11/11 -Post bronc noted to have transient hypotension-> given LR bolus, Levophed drip -Complicated by pneumothorax -S/p chest tube placement for right pneumothorax -Chest tube to wall suction -[address] drainage 0 ml -ABG/CXR per CCM -VAP bundle -Right chest wall ultrasound shows pleural effusion -SPO2 monitoring -Mucomyst every 8 -Albuterol every 8 Acute DVT in the right external iliac vein, common femoral vein, superior aspect of femoral vein -Evidenced on bilateral upper lower extremity ultrasound -Therapeutic Lovenox Hypernatremia -increase in FWF -Trend sodium Hypokalemia, hypomagnesemia, hypophosphatemia (resolved) -Repleted with K-Phos and magnesium -Trend BMP Hypotension, Heart failure with reduced EF, h/o chronic heart block s/p PPM -Remains on vasopressor support with levophed -map goal >65 -11/04 echocardiogram shows EF 30 to 35% -Cardiology consulted, appreciate recommendations -Continue beta-charleen -Not on aspirin due to allergy -Statins on hold due to elevated LFTs -Blood pressure monitor per protocol Acute encephalopathy -Neurology consulted, appreciate recommendations -CT brain showed no acute events -EEG interpreted as abnormal record due to diffuse slowing and therefore5 height noted throughout the recording, suggestive of encephalopathic process and/or drug effect, possibilities of postictal state cannot be totally excluded. Clinical correlation is in order -MRI brain and possible-> patient has metal in her body -Repeat CT head pending -Avoid delirium -Reorientation as needed -TSH/B12/ammonia level pending Acute microcytic anemia -S/p 1 unit PRBC -Trend CBC -Transfuse for hemoglobin less than 7 -repeat h/h 7.9/.8 Transaminitis -Nutrition consult for tube feeding -BR: Senokot -KUB ordered yesterday was discontinued by tech. Will not reorder due to recorded BM 11/12 -24-hour +896 ml -Trend LFTs h/o HTN/CAD s/p PCI (2004) -Statin on hold due to transaminitis -Hold home antihypertensive and resume as tolerated -Blood pressure monitoring per protocol h/o DM -SSI -Accu-Cheks every 6 -Avoid hypoglycemia h/o hypothyroidism -Continue home Synthroid DVT/GI prophylaxis -Therapeutic Lovenox, PPI The high probability of a clinically significant, sudden or life threatening deterioration of the [multi] system(s) required my full and direct attention, intervention and personal management. The aggregate critical care time was [60] minutes. This time is in addition to time spent performing reported procedures but includes the following: [x] Data Review and interpretation [x] Patient assessment and monitoring of vital signs [x] Documentation [x] Medication orders and management Disposition Plan: icu Total Time Spent with Patient (Minutes): 60 History Interval history: This is an 82-year-old female with DM, HTN , PPM and arthritis who presented to the emergency department on 11/04 for shortness of breath ongoing for the past 3 days, cough and according to family a fever of 102.2. Upon arrival of EMS patient was found to be tachypneic and hypoxic with SPO2 of 76% on room air which later improved to 88% on nonrebreather. Work-up in the emergency department included a CXR which showed bilateral interstitial pulmonary edema with bilateral pleural effusions and bibasilar opacities, leukocytosis and anemia with a hemoglobin of 6.1. Patient was admitted to the hospitalist service with acute anemia, acute hypoxic respiratory failure, bilateral pneumonia and COVID-19 PUI with consults to pulmonology, infectious disease and later cardiology. Patient was eventually intubated in the emergency department on 11/06. Hospital Course to date: 11/04/2021: Empiric therapy with iv levaquin/vancomycin. COVID PCR pending. Will consult ID. PCCM consulted, will follow recs. Hypotensive this AM, ordered bolus and fluids at 150 cc/hr. May require pressor support if bp does not improve. 11/05/2021: GBS on bcx +, currently on rocephin IV. Currently on bipap due to respiratory distress overnight. Worsening BL opacities on CXR. May be volume ov erload vs pneumonia. Unfortunately bp too low for lasix at this point. WIll continue levophed and bipap. Once able to tolerate, may do trial of albumin/lasix. Call attempt made to Niraj, no response. Will try again tomorrow to update. 11/06/2021: Decompensated overnight requiring intubation. CXR shows worsening interstitial infiltrates. Currenlty on dopamine, levophed, vasopressin. PICC line ordered. Advised RN to place gamble for I/O monitoring. Would benefit from diuresis but very volume overloaded. Prognosis guarded 11/08: Off sedation this am, remains unresponsive only grimace to pain. Hold all sedatives agents for now, patient is off pressors this am. Hypernatremia from today's lab- D5W X1bag, and low K repleted, repeat lab in the am. Severe constipation also noted from KUB, BR added. 11/09: Sudden SPO2 drop in the 60s this am. Patient was manually bagged and deep suctioned. Patient is currently stable on the vent, repeat CXR with no significant change. D/w CCM Mucomyst and brochodilator added. Patient mentation is unchanged, continue to hold off on sedative agents. Neurology consulted. 11/10: Acute DVT noted on bilateral lower extremity Doppler ultrasound therefore she was started on Lovenox treatment dose. Failed SBT. Hypernatremia and hyperchloremia noted, free water flush adjusted. 11/11: Patient noted to be febrile with increasing of the cytosis, UA/BC sent and CXR ordered. ID escalated antibiotics to cefepime. CXR demonstrated mucous plug, bedside bronchoscopy was performed and O ETT was changed over bougie from 6 cm to 7.5. Patient was noted to have a pneumothorax postprocedure and chest tube was placed. Family updated by [facility]. Free water flush increased and will add Jaswant supplementation. 11/12: Patient not noted to follow commands, hypernatremia worsen/persist, increasing free water flush, potassium and magnesium and phosphorus repleted. Hemoglobin noted to be 7.1/24.5 from 7.03/12 yesterday. We will continue to trend and monitor. Vent changes per [facility]. Repeat CXR showed no residual pneumothorax. Consider waterseal tomorrow. Given persistent leukocytosis antibiotics escalated to cefepime per ID. 11/13: Remains on cefepime and vancomycin, vent changes per CCM. Anemia noted and given 1 unit PRBC. And beta-charleen held in setting of Levophed drip infusing. Remains on fentanyl drip. 11/14: Patient put on CPAP trial by [facility], will continue chest tube until after extubation. Will rest on assist control. CT brain was cancelled by shingle grader and reordered. Hospitalist Physical - Constitutional Vitals: Temp Pulse Resp BP Pulse Ox 98.7 F 89 21 124/55 98 11/14/21 12:00 11/14/21 16:14 11/14/21 16:14 11/14/21 16:14 11/14/21 16:14 General appearance: Present: no acute distress, other (On the vent) - EENT Eyes: Present: PERRL, EOM intact ENT: hearing intact, clear oral mucosa - Neck Neck: Present: normal ROM - Respiratory Respiratory effort: normal Respiratory: bilateral: diminished - Cardiovascular Rhythm: regular Heart Sounds: Present: S1 & S2. Absent: systolic murmur, diastolic murmur - Extremities Extremities: no ischemia, pulses intact, pulses symmetrical, No edema, normal temperature, normal color Peripheral Pulses: within normal limits - Abdominal General gastrointestinal: soft, non-tender, non-distended, normal bowel sounds - Integumentary Integumentary: Present: warm, dry - Psychiatric Psychiatric: cooperative, agitated - Neurologic Neurologic: CNII-XII intact, moves all extremities - Allied Health Allied health notes reviewed: nursing, RT, social work HEART Score - HEART Score Troponin: Troponin T 0.033 ng/mL (0.00-0.029) H 11/05/21 06:11 Results - Labs CBC & Chem 7: 11/14/21 04:46 11/14/21 04:46 Labs: Laboratory Last Values WBC 20.0 K/mm3 (4.5-11.0) H 11/14/21 04:46 RBC 3.41 M/mm3 (3.65-5.03) L 11/14/21 04:46 Hgb 7.9 gm/dl (10.1-14.3) L 11/14/21 04:46 Hct 26.8 % (30.3-42.9) L 11/14/21 04:46 MCV 79 fl (79-97) 11/14/21 04:46 MCH 23 pg (28-32) L 11/14/21 04:46 MCHC 29 % (30-34) L 11/14/21 04:46 RDW 24.0 % (13.2-15.2) H 11/14/21 04:46 Plt Count 146 K/mm3 (140-440) 11/14/21 04:46 Add Manual Diff Complete 11/06/21 15:50 Total Counted 100 11/06/21 15:50 Seg Neutrophils % Senior Research Consultant 11/06/21 15:50 Seg Neuts % (Manual) 92.0 % (40.0-70.0) H 11/06/21 15:50 Band Neutrophils % 0 % 11/06/21 15:50 Lymphocytes % (Manual) 5.0 % (13.4-35.0) L 11/06/21 15:50 Reactive Lymphs % (Man) 0 % 11/06/21 15:50 Monocytes % (Manual) 3.0 % (0.0-7.3) 11/06/21 15:50 Eosinophils % (Manual) 0 % (0.0-4.3) 11/06/21 15:50 Basophils % (Manual) 0 % (0.0-1.8) 11/06/21 15:50 Metamyelocytes % 0 % 11/06/21 15:50 Myelocytes % 0 % 11/06/21 15:50 Promyelocytes % 0 % 11/06/21 15:50 Blast Cells % 0 % 11/06/21 15:50 Nucleated RBC % Not Reportable 11/06/21 15:50 Seg Neutrophils # Man 23.5 K/mm3 (1.8-7.7) H 11/06/21 15:50 Band Neutrophils # 0.0 K/mm3 11/06/21 15:50 Lymphocytes # (Manual) 1.3 K/mm3 (1.2-5.4) 11/06/21 15:50 Abs React Lymphs (Man) 0.0 K/mm3 11/06/21 15:50 Monocytes # (Manual) 0.8 K/mm3 (0.0-0.8) 11/06/21 15:50 Eosinophils # (Manual) 0.0 K/mm3 (0.0-0.4) 11/06/21 15:50 Basophils # (Manual) 0.0 K/mm3 (0.0-0.1) 11/06/21 15:50 Metamyelocytes # 0.0 K/mm3 11/06/21 15:50 Myelocytes # 0.0 K/mm3 11/06/21 15:50 Promyelocytes # 0.0 K/mm3 11/06/21 15:50 Blast Cells # 0.0 K/mm3 11/06/21 15:50 WBC Morphology Not Reportable 11/06/21 15:50 Hypersegmented Neuts Not Reportable 11/06/21 15:50 Hyposegmented Neuts Not Reportable 11/06/21 15:50 Hypogranular Neuts Not Reportable 11/06/21 15:50 Smudge Cells Not Reportable 11/06/21 15:50 Toxic Granulation Not Reportable 11/06/21 15:50 Toxic Vacuolation Not Reportable 11/06/21 15:50 Dohle Bodies Not Reportable 11/06/21 15:50 Pelger-Huet Anomaly Not Reportable 11/06/21 15:50 Irina Rods Not Reportable 11/06/21 15:50 Platelet Estimate Consistent w auto 11/06/21 15:50 Clumped Platelets Not Reportable 11/06/21 15:50 Plt Clumps, EDTA Not Reportable 11/06/21 15:50 Large Platelets Not Reportable 11/06/21 15:50 Giant Platelets Not Reportable 11/06/21 15:50 Platelet Satelliting Not Reportable 11/06/21 15:50 Plt Morphology Comment Not Reportable 11/06/21 15:50 RBC Morphology Not Reportable 11/06/21 15:50 Dimorphic RBCs Not Reportable 11/06/21 15:50 Polychromasia Not Reportable 11/06/21 15:50 Hypochromasia 2+ 11/06/21 15:50 Poikilocytosis Not Reportable 11/06/21 15:50 Anisocytosis 1+ 11/06/21 15:50 Microcytosis Not Reportable 11/06/21 15:50 Macrocytosis Not Reportable 11/06/21 15:50 Spherocytes Not Reportable 11/06/21 15:50 Pappenheimer Bodies Not Reportable 11/06/21 15:50 Sickle Cells Not Reportable 11/06/21 15:50 Target Cells Not Reportable 11/06/21 15:50 Tear Drop Cells Not Reportable 11/06/21 15:50 Ovalocytes Not Reportable 11/06/21 15:50 Helmet Cells Not Reportable 11/06/21 15:50 [place] Bodies Not Reportable 11/06/21 15:50 Bromide Rings Not Reportable 11/06/21 15:50 Malcom Cells Not Reportable 11/06/21 15:50 Bite Cells Not Reportable 11/06/21 15:50 Crenated Cell Not Reportable 11/06/21 15:50 Elliptocytes Not Reportable 11/06/21 15:50 Acanthocytes (Spur) Not Reportable 11/06/21 15:50 Rouleaux Not Reportable 11/06/21 15:50 Hemoglobin C Crystals Not Reportable 11/06/21 15:50 Schistocytes Not Reportable 11/06/21 15:50 Malaria parasites Not Reportable 11/06/21 15:50 Godfrey Bodies Not Reportable 11/06/21 15:50 Hem Pathologist Commnt No 11/06/21 15:50 PT 18.6 Sec. (12.2-14.9) H 11/03/21 22:32 INR 1.40 (0.87-1.13) H 11/03/21 22:32 APTT 28.9 Sec. (24.2-36.6) 11/03/21 22:32 D-Dimer 2655.00 ng/mlDDU (0-234) H 11/11/21 04:28 ABG pH 7.407 pH Units (7.350-7.450) 11/14/21 16:14 ABG pCO2 45.6 mm Hg 11/14/21 16:14 ABG pO2 80.6 mm Hg (80.0-90.0) 11/14/21 16:14 ABG HCO3 28.0 mmol/L (20.0-26.0) H 11/14/21 16:14 ABG O2 Saturation 97.0 % (95.0-99.0) 11/14/21 16:14 ABG O2 Content 7.8 (0.0-44) 11/14/21 16:14 ABG Base Excess 3.1 mmol/L (-2.0-3.0) H 11/14/21 16:14 ABG Hemoglobin 5.8 gm/dl (12.0-16.0) L 11/14/21 16:14 ABG Carboxyhemoglobin 2.0 % (0.0-5.0) 11/14/21 16:14 ABG Methemoglobin 0.3 % (0.0-1.5) 11/14/21 16:14 Oxyhemoglobin 94.8 % (95.0-99.0) L 11/14/21 16:14 FiO2 35 % 11/14/21 16:14 Sodium 148 mmol/L (137-145) H 11/14/21 04:46 Potassium 4.1 mmol/L (3.6-5.0) 11/14/21 04:46 Chloride 113.1 mmol/L (98-107) H 11/14/21 04:46 Carbon Dioxide 24 mmol/L (22-30) 11/14/21 04:46 Anion Gap 15 mmol/L 11/14/21 04:46 BUN 43 mg/dL (7-17) H 11/14/21 04:46 Creatinine 0.7 mg/dL (0.6-1.2) 11/14/21 04:46 Estimated GFR > 60 ml/min 11/14/21 04:46 BUN/Creatinine Ratio 61 % 11/14/21 04:46 Glucose 140 mg/dL (65-100) H 11/14/21 04:46 POC Glucose 130 mg/dL (70-105) H 11/14/21 17:48 Lactic Acid 3.70 mmol/L (0.7-2.0) H* 11/03/21 22:32 Calcium 7.5 mg/dL (8.4-10.2) L 11/14/21 04:46 Phosphorus 4.40 mg/dL (2.5-4.5) D 11/13/21 06:30 Magnesium 2.40 mg/dL (1.7-2.3) H 11/13/21 06:30 Ferritin 52.6 ng/mL (10.0-200.0) 11/05/21 06:11 Total Bilirubin < 0.20 mg/dL (0.1-1.2) 11/13/21 06:30 Direct Bilirubin < 0.2 mg/dL (0-0.2) 11/11/21 04:28 Indirect Bilirubin 0.1 mg/dL 11/11/21 04:28 AST 35 units/L (5-40) 11/13/21 06:30 ALT 72 units/L (7-56) H 11/13/21 06:30 Alkaline Phosphatase 100 units/L (35-129) 11/13/21 06:30 Ammonia 42.0 umol/L (25-60) 11/10/21 14:08 Lactate Dehydrogenase 187 units/L (91-180) H 11/05/21 06:11 Troponin T 0.033 ng/mL (0.00-0.029) H 11/05/21 06:11 C-Reactive Protein 22.20 mg/dL (0.00-1.30) H 11/05/21 06:11 NT-Pro-B Natriuret Pep 7895 pg/mL (0-900) H 11/03/21 22:32 Total Protein 5.2 g/dL (6.3-8.2) L 11/13/21 06:30 Albumin 2.2 g/dL (3.9-5) L 11/13/21 06:30 Albumin/Globulin Ratio 0.7 % 11/13/21 06:30 Triglycerides 66 mg/dL (2-149) 11/03/21 22:32 Cholesterol 80 mg/dL (50-199) 11/03/21 22:32 LDL Cholesterol Direct 34 mg/dL (50-130) L 11/03/21 22:32 HDL Cholesterol 42 mg/dL (40-59) 11/03/21 22:32 Cholesterol/HDL Ratio 1.90 % 11/03/21 22:32 Vitamin B12 1823 pg/mL (211-911) H 11/10/21 14:08 TSH 1.510 mlU/mL (0.270-4.200) 11/10/21 14:08 Urine Color Yellow (Yellow) 11/11/21 09:00 Urine Turbidity Slightly-cloudy (Clear) 11/11/21 09:00 Urine pH 5.0 (5.0-7.0) 11/11/21 09:00 Ur Specific [place] 1.009 (1.003-1.030) 11/11/21 09:00 Urine Protein <15 mg/dl mg/dL (Negative) 11/11/21 09:00 Urine Glucose (UA) Neg mg/dL (Negative) 11/11/21 09:00 Urine Ketones Neg mg/dL (Negative) 11/11/21 09:00 Urine Blood Mod (Negative) 11/11/21 09:00 Urine Nitrite Neg (Negative) 11/11/21 09:00 Urine Bilirubin Neg (Negative) 11/11/21 09:00 Urine Urobilinogen < 2.0 mg/dL (<2.0) 11/11/21 09:00 Ur Leukocyte Esterase Neg (Negative) 11/11/21 09:00 Urine WBC (Auto) < 1.0 /HPF (0.0-6.0) 11/11/21 09:00 Urine RBC (Auto) < 1.0 /HPF (0.0-6.0) 11/11/21 09:00 Coronavirus (PCR) Negative (Negative) 11/10/21 08:30 Blood Type O POSITIVE 11/13/21 08:30 Antibody Screen Negative 11/13/21 08:30 Crossmatch See Detail 11/13/21 08:30 Microbiology: Microbiology 11/11/21 14:22 Peripheral/Venous Blood Culture - Preliminary NO GROWTH AFTER 72 HOURS 11/11/21 14:36 Peripheral/Venous Blood Culture - Preliminary NO GROWTH AFTER 72 HOURS 11/10/21 15:35 Tracheal Aspirate Sputum Culture - Final Gamble/IV: Voiding Method Indwelling Catheter Active Medications - Current Medications Current Medications: Generic Name Dose Route Start Last Admin Trade Name Freq PRN Reason Stop Dose Admin Acetaminophen 650 mg 11/04/21 02:03 11/12/21 05:35 Acetaminophen 325 Mg Tab PO 650 mg Q6H PRN Administration Pain MILD(1-3)/Fever >100.5/RODRIGUEZ Lipase/Protease/Amylase 1 each 11/08/21 11:09 Lipase 10,500/Protease 25,000/Amylase 43,750 (Units) Dr Cap FEEDTUBE PRN PRN For Clogged Feeding Tube Dextrose 0 ml 11/10/21 10:52 Dextrose 10% *Hypoglycemia IV PRN PRN Hypoglycemia Docusate Sodium 100 mg 11/08/21 12:00 11/14/21 09:39 Docusate Sodium 100 Mg/10 Ml Oral Liqd PO 100 mg BID YOSSI Administration Enoxaparin Sodium 60 mg 11/10/21 22:00 11/14/21 09:40 Enoxaparin 60 Mg/0.6 Ml Inj SUB-Q 60 mg Q12HR YOSSI Administration Protocol Famotidine 10 mg 11/11/21 22:00 11/14/21 10:10 Famotidine 10 Mg Tab FEEDTUBE 10 mg BID YOSSI Administration Fentanyl 50 mcg 11/11/21 16:22 11/13/21 18:01 Fentanyl 100 Mcg/2 Ml Inj IV 50 mcg Q10MIN PRN Administration ANALGESIA Furosemide 20 mg 11/08/21 18:00 11/14/21 17:34 Furosemide 20 Mg/2 Ml Inj IV 20 mg 0600,1800 YOSSI Administration Hydrophilic Ointment 1 applic 11/06/21 04:02 Lip Therapy Vaseline TP Q2HR PRN Dry Lips NORepinephrine/NS 8 MG-250 ML 8 mg in 250 mls @ 3.75 mls/hr 11/05/21 09:00 11/14/21 12:23 Norepinephrine/Ns 8 Mg-250 Ml (Double Conc) IV 2 mcg/min TITRATE YOSSI 3.75 mls/hr Titration Protocol 2 MCG/MIN Vasopressin 20 unit/ Sodium 101 mls @ 9.09 mls/hr 11/05/21 23:00 11/06/21 01:00 Chloride IV 0.03 units/min TITR YOSSI 9.09 mls/hr Administration Protocol 0.03 UNITS/MIN Fentanyl Citrate 2,000 mcg in 100 mls @ 3.12 mls/hr 11/11/21 17:00 11/14/21 14:18 Fentanyl Drip Premix IV 3 mcg/kg/hr TITR YOSSI 9.36 mls/hr Administration Protocol 1 MCG/KG/HR Cefepime HCl 1 gm in 100 mls @ 200 mls/hr 11/12/21 16:00 11/14/21 16:15 Cefepime/Ns 1 Gm/100 Ml IV 200 mls/hr Q8H [facility] Administration Protocol Insulin Human Lispro 0 unit 11/06/21 12:00 11/14/21 17:35 Insulin Lispro 100 Unit/Ml SUB-Q Not Given Q6HR [facility] Protocol Levothyroxine Sodium 125 mcg 11/05/21 07:00 11/14/21 06:25 Levothyroxine 125 Mcg Tab PO 125 mcg DAILY@0600 [facility] Administration Magnesium Hydroxide 30 ml 11/04/21 02:03 Magnesium Hydroxide (Mom) Oral Liqd Udc PO Q4H PRN Constipation Multi-Ingred Cream/Lotion/Oil/Oint 1 applic 11/06/21 04:02 Mineral Oil/Petrolatum, White Ophth Oint 3.5 Gm OU Q4HR PRN Dry Eye(s) Ondansetron HCl 4 mg 11/04/21 02:03 11/05/21 15:48 Ondansetron 4 Mg/2 Ml Inj IV 4 mg Q8H PRN Administration Nausea And Vomiting Polyethylene Glycol 17 gm 11/08/21 12:00 11/14/21 09:40 Polyethylene Glycol 3350 17 Gm Powder PO 17 gm QDAY [facility] Administration Senna 17.6 mg 11/08/21 22:00 11/14/21 09:39 Sennosides Oral Liqd 8.8 Mg/5 Ml Oral Liqd PO 17.6 mg Q12HR [facility] Administration Simple Syrup 15 ml 11/08/21 11:09 Simple Syrup 15 Ml FEEDTUBE PRN PRN Hypoglycemia Simple Syrup 30 ml 11/08/21 11:09 Simple Syrup 15 Ml FEEDTUBE PRN PRN Hypoglycemia Sodium Bicarbonate 325 mg 11/08/21 11:09 Sodium Bicarbonate 325 Mg Tab FEEDTUBE PRN PRN For Clogged Feeding Tube Sodium Chloride 10 ml 11/04/21 10:00 11/14/21 10:01 Sodium Chloride 0.9% 10 Ml Flush Syringe IV Not Given BID YOSSI Sodium Chloride 10 ml 11/04/21 02:03 Sodium Chloride 0.9% 10 Ml Flush Syringe IV PRN PRN LINE FLUSH Sodium Chloride 10 ml 11/10/21 09:57 11/12/21 17:08 Sodium Chloride 0.9% 50 Ml Ivpb IV 10 ml PRN PRN Administration FLUSH Nutrition/Malnutrition Assess - Dietary Evaluation Nutrition/Malnutrition Findings: Nutrition Notes Start: 11/04/21 17:16 Freq: Status: Active Protocol: Document 11/10/21 16:03 ISABELL (Rec: 11/10/21 16:20 ISABELL [id number]) Nutrition Notes Current Diagnosis Diabetes,Sepsis,Hypertension, Respiratory Failure Other Pertinent Diagnosis Severe Sepsis/Bacteremia, Bilateral Pneumonia. Current Diet TF-Vital AF @ 60 ml/hr (since L 11/08). Height 5 ft Weight 58.967 kg [place] Body Weight (kg) 45.45 BMI 25.4 Weight change and time frame No body weight change reported . Weight Status Appropriate Subjective/Other Information RD consult for TF tolerance. TF well tolerated, according to RN notes. Percent of energy/protein needs met: Prescribed Vital AF @ 60 ml/hr provides for energy/protein needs (1,710 Kcal/107 g) during LOS, 100% Kcal; 100% AA . #1 Nutrition Diagnosis Inadequate oral intake Diagnosis Progress(for reassessment Continues documentation) Is patient on ventilator? Yes Is Patient Ambulatory and/or Out of Bed No REE-([facility]-confined to bed) 1166.664 Kcal/Kg value to use for calculation 29 Approximate Energy Requirements Using 1710 kcal/Kg Calculation Used for Recommendations Kcal/kg Additional Notes Protein: 70-118 g/day (1.2-2g/ kg BW/day) Fluids: 1 ml/kcal, or as per MD. Nutrition Intervention Nutrition Support: Continue Vital AF @ 60 ml/hr. Flush: 100 ml water Q 4 hr, or as per MD. Kcal 1,710 Protein (gm) 107 Carbohydrates (gm) 158 Fat (gm) 77 Fluid (mL) 1,156 Fiber (gm) 7 % RDI: 100% Kcal; 100% AA. Goal #1 Provide at least 75% of energy /protein needs through Enteral Feeding during LOS. Goal #2 Maintain body weight within +/ -3% of admission body weight during LOS. Follow-Up By: 11/17/21 Additional Comments Continue monitoring TF tolerance and BM. <FREDERICK DALTON - Last Filed: 11/20/21 12:52> Assessment and Plan Assessment and plan: I saw and evaluated the patient. Discussed with the nurse practitioner and agree with their findings and plan as documented in this note. Hospitalist Physical - Constitutional Vitals: Temp Pulse Resp BP Pulse Ox 97.0 F L 67 15 91/44 95 11/20/21 12:00 11/20/21 11:28 11/20/21 11:27 11/20/21 11:00 11/20/21 11:27 HEART Score - HEART Score Troponin: Troponin T 0.033 ng/mL (0.00-0.029) H 11/05/21 06:11 Results - Labs CBC & Chem 7: 11/20/21 05:40 11/20/21 05:40 Labs: Laboratory Last Values WBC 8.2 K/mm3 (4.5-11.0) 11/20/21 05:40 RBC 3.40 M/mm3 (3.65-5.03) L 11/20/21 05:40 Hgb 9.1 gm/dl (10.1-14.3) L 11/20/21 05:40 Hct 28.8 % (30.3-42.9) L 11/20/21 05:40 MCV 85 fl (79-97) 11/20/21 05:40 MCH 27 pg (28-32) L 11/20/21 05:40 MCHC 31 % (30-34) 11/20/21 05:40 RDW 20.7 % (13.2-15.2) H 11/20/21 05:40 Plt Count 172 K/mm3 (140-440) 11/20/21 05:40 Add Manual Diff Complete 11/16/21 15:25 Total Counted 100 11/16/21 15:25 Seg Neutrophils % Senior Research Consultant 11/06/21 15:50 Seg Neuts % (Manual) 87.0 % (40.0-70.0) H 11/16/21 15:25 Band Neutrophils % 0 % 11/16/21 15:25 Lymphocytes % (Manual) 8.0 % (13.4-35.0) L 11/16/21 15:25 Reactive Lymphs % (Man) 0 % 11/16/21 15:25 Monocytes % (Manual) 5.0 % (0.0-7.3) 11/16/21 15:25 Eosinophils % (Manual) 0 % (0.0-4.3) 11/16/21 15:25 Basophils % (Manual) 0 % (0.0-1.8) 11/16/21 15:25 Metamyelocytes % 0 % 11/16/21 15:25 Myelocytes % 0 % 11/16/21 15:25 Promyelocytes % 0 % 11/16/21 15:25 Blast Cells % 0 % 11/16/21 15:25 Nucleated RBC % Not Reportable 11/16/21 15:25 Seg Neutrophils # Man 15.0 K/mm3 (1.8-7.7) H 11/16/21 15:25 Band Neutrophils # 0.0 K/mm3 11/16/21 15:25 Lymphocytes # (Manual) 1.4 K/mm3 (1.2-5.4) 11/16/21 15:25 Abs React Lymphs (Man) 0.0 K/mm3 11/16/21 15:25 Monocytes # (Manual) 0.9 K/mm3 (0.0-0.8) H 11/16/21 15:25 Eosinophils # (Manual) 0.0 K/mm3 (0.0-0.4) 11/16/21 15:25 Basophils # (Manual) 0.0 K/mm3 (0.0-0.1) 11/16/21 15:25 Metamyelocytes # 0.0 K/mm3 11/16/21 15:25 Myelocytes # 0.0 K/mm3 11/16/21 15:25 Promyelocytes # 0.0 K/mm3 11/16/21 15:25 Blast Cells # 0.0 K/mm3 11/16/21 15:25 WBC Morphology Not Reportable 11/16/21 15:25 Hypersegmented Neuts Not Reportable 11/16/21 15:25 Hyposegmented Neuts Not Reportable 11/16/21 15:25 Hypogranular Neuts Not Reportable 11/16/21 15:25 Smudge Cells Not Reportable 11/16/21 15:25 Toxic Granulation Not Reportable 11/16/21 15:25 Toxic Vacuolation Not Reportable 11/16/21 15:25 Dohle Bodies Not Reportable 11/16/21 15:25 Pelger-Huet Anomaly Not Reportable 11/16/21 15:25 Irina Rods Not Reportable 11/16/21 15:25 Platelet Estimate Consistent w auto 11/16/21 15:25 Clumped Platelets Rare 11/16/21 15:25 Plt Clumps, EDTA Not Reportable 11/16/21 15:25 Large Platelets Not Reportable 11/16/21 15:25 Giant Platelets Not Reportable 11/16/21 15:25 Platelet Satelliting Not Reportable 11/16/21 15:25 Plt Morphology Comment Not Reportable 11/16/21 15:25 RBC Morphology Not Reportable 11/16/21 15:25 Dimorphic RBCs Not Reportable 11/16/21 15:25 Polychromasia Not Reportable 11/16/21 15:25 Hypochromasia 2+ 11/16/21 15:25 Poikilocytosis Not Reportable 11/16/21 15:25 Anisocytosis 2+ 11/16/21 15:25 Microcytosis Not Reportable 11/16/21 15:25 Macrocytosis Not Reportable 11/16/21 15:25 Spherocytes Not Reportable 11/16/21 15:25 Pappenheimer Bodies Not Reportable 11/16/21 15:25 Sickle Cells Not Reportable 11/16/21 15:25 Target Cells 2+ 11/16/21 15:25 Tear Drop Cells Not Reportable 11/16/21 15:25 Ovalocytes Not Reportable 11/16/21 15:25 Helmet Cells Not Reportable 11/16/21 15:25 [place] Bodies Not Reportable 11/16/21 15:25 Bromide Rings Not Reportable 11/16/21 15:25 Malcom Cells Not Reportable 11/16/21 15:25 Bite Cells Not Reportable 11/16/21 15:25 Crenated Cell Not Reportable 11/16/21 15:25 Elliptocytes Not Reportable 11/16/21 15:25 Acanthocytes (Spur) Not Reportable 11/16/21 15:25 Rouleaux Not Reportable 11/16/21 15:25 Hemoglobin C Crystals Not Reportable 11/16/21 15:25 Schistocytes Not Reportable 11/16/21 15:25 Malaria parasites Not Reportable 11/16/21 15:25 Godfrey Bodies Not Reportable 11/16/21 15:25 Hem Pathologist Commnt No 11/16/21 15:25 PT 18.6 Sec. (12.2-14.9) H 11/03/21 22:32 INR 1.40 (0.87-1.13) H 11/03/21 22:32 APTT 28.9 Sec. (24.2-36.6) 11/03/21 22:32 D-Dimer 2655.00 ng/mlDDU (0-234) H 11/11/21 04:28 ABG pH 7.407 pH Units (7.350-7.450) 11/14/21 16:14 ABG pCO2 45.6 mm Hg 11/14/21 16:14 ABG pO2 80.6 mm Hg (80.0-90.0) 11/14/21 16:14 ABG HCO3 28.0 mmol/L (20.0-26.0) H 11/14/21 16:14 ABG O2 Saturation 97.0 % (95.0-99.0) 11/14/21 16:14 ABG O2 Content 7.8 (0.0-44) 11/14/21 16:14 ABG Base Excess 3.1 mmol/L (-2.0-3.0) H 11/14/21 16:14 ABG Hemoglobin 5.8 gm/dl (12.0-16.0) L 11/14/21 16:14 ABG Carboxyhemoglobin 2.0 % (0.0-5.0) 11/14/21 16:14 ABG Methemoglobin 0.3 % (0.0-1.5) 11/14/21 16:14 Oxyhemoglobin 94.8 % (95.0-99.0) L 11/14/21 16:14 FiO2 35 % 11/14/21 16:14 Sodium 141 mmol/L (137-145) 11/20/21 05:40 Potassium 3.5 mmol/L (3.6-5.0) L 11/20/21 05:40 Chloride 108.9 mmol/L (98-107) H 11/20/21 05:40 Carbon Dioxide 23 mmol/L (22-30) 11/20/21 05:40 Anion Gap 13 mmol/L 11/20/21 05:40 BUN 37 mg/dL (7-17) H 11/20/21 05:40 Creatinine 0.8 mg/dL (0.6-1.2) 11/20/21 05:40 Estimated GFR > 60 ml/min 11/20/21 05:40 BUN/Creatinine Ratio 46 % 11/20/21 05:40 Glucose 117 mg/dL (65-100) H 11/20/21 05:40 POC Glucose 74 mg/dL (70-105) 11/20/21 12:04 Lactic Acid 3.70 mmol/L (0.7-2.0) H* 11/03/21 22:32 Calcium 7.5 mg/dL (8.4-10.2) L 11/20/21 05:40 Phosphorus 3.80 mg/dL (2.5-4.5) D 11/19/21 04:55 Magnesium 2.30 mg/dL (1.7-2.3) 11/19/21 04:55 Ferritin 52.6 ng/mL (10.0-200.0) 11/05/21 06:11 Total Bilirubin 0.50 mg/dL (0.1-1.2) 11/17/21 05:56 Direct Bilirubin < 0.2 mg/dL (0-0.2) 11/11/21 04:28 Indirect Bilirubin 0.1 mg/dL 11/11/21 04:28 AST 36 units/L (5-40) 11/17/21 05:56 ALT 47 units/L (7-56) 11/17/21 05:56 Alkaline Phosphatase 107 units/L (35-129) 11/17/21 05:56 Ammonia 42.0 umol/L (25-60) 11/10/21 14:08 Lactate Dehydrogenase 187 units/L (91-180) H 11/05/21 06:11 Troponin T 0.033 ng/mL (0.00-0.029) H 11/05/21 06:11 C-Reactive Protein 22.20 mg/dL (0.00-1.30) H 11/05/21 06:11 NT-Pro-B Natriuret Pep 7895 pg/mL (0-900) H 11/03/21 22:32 Total Protein 5.1 g/dL (6.3-8.2) L 11/17/21 05:56 Albumin 2.2 g/dL (3.9-5) L 11/17/21 05:56 Albumin/Globulin Ratio 0.8 % 11/17/21 05:56 Triglycerides 66 mg/dL (2-149) 11/03/21 22:32 Cholesterol 80 mg/dL (50-199) 11/03/21 22:32 LDL Cholesterol Direct 34 mg/dL (50-130) L 11/03/21 22:32 HDL Cholesterol 42 mg/dL (40-59) 11/03/21 22:32 Cholesterol/HDL Ratio 1.90 % 11/03/21 22:32 Vitamin B12 1823 pg/mL (211-911) H 11/10/21 14:08 TSH 1.510 mlU/mL (0.270-4.200) 11/10/21 14:08 Urine Color Yellow (Yellow) 11/11/21 09:00 Urine Turbidity Slightly-cloudy (Clear) 11/11/21 09:00 Urine pH 5.0 (5.0-7.0) 11/11/21 09:00 Ur Specific [place] 1.009 (1.003-1.030) 11/11/21 09:00 Urine Protein <15 mg/dl mg/dL (Negative) 11/11/21 09:00 Urine Glucose (UA) Neg mg/dL (Negative) 11/11/21 09:00 Urine Ketones Neg mg/dL (Negative) 11/11/21 09:00 Urine Blood Mod (Negative) 11/11/21 09:00 Urine Nitrite Neg (Negative) 11/11/21 09:00 Urine Bilirubin Neg (Negative) 11/11/21 09:00 Urine Urobilinogen < 2.0 mg/dL (<2.0) 11/11/21 09:00 Ur Leukocyte Esterase Neg (Negative) 11/11/21 09:00 Urine WBC (Auto) < 1.0 /HPF (0.0-6.0) 11/11/21 09:00 Urine RBC (Auto) < 1.0 /HPF (0.0-6.0) 11/11/21 09:00 Coronavirus (PCR) Negative (Negative) 11/10/21 08:30 Blood Type O POSITIVE 11/18/21 10:45 Antibody Screen Negative 11/18/21 10:45 Crossmatch See Detail 11/18/21 10:45 Gamble/IV: Voiding Method Incontinent Active Medications - Current Medications Current Medications: Generic Name Dose Route Start Last Admin Trade Name Freq PRN Reason Stop Dose Admin Acetaminophen 650 mg 11/04/21 02:03 11/16/21 15:43 Acetaminophen 325 Mg Tab PO 650 mg Q6H PRN Administration Pain MILD(1-3)/Fever >100.5/RODRIGUEZ Hydrocodone Bitart/Acetaminophen 1 each 11/15/21 20:00 11/20/21 09:52 Hydrocodone/Acetaminophen 10-325mg Tab PO 11/20/21 19:59 1 each TID YOSSI Administration Lipase/Protease/Amylase 1 each 11/08/21 11:09 Lipase 10,500/Protease 25,000/Amylase 43,750 (Units) Dr Lema FEEDTUBE PRN PRN For Clogged Feeding Tube Buspirone HCl 7.5 mg 11/17/21 22:00 11/20/21 09:52 Buspirone 5 Mg Tab PO 7.5 mg BID YOSSI Administration Dextrose 0 ml 11/10/21 10:52 11/20/21 12:37 Dextrose 10% *Hypoglycemia IV 50 ml PRN PRN Administration Hypoglycemia Docusate Sodium 100 mg 11/08/21 12:00 11/20/21 09:08 Docusate Sodium 100 Mg/10 Ml Oral Liqd PO Not Given BID YOSSI Fentanyl 1 applic 11/17/21 13:00 11/20/21 09:07 Fentanyl 25 Mcg/Hr Patch 72hr TD 1 applic Q3D YOSSI Administration Fentanyl 25 mcg 11/19/21 18:09 11/20/21 07:05 Fentanyl 100 Mcg/2 Ml Inj IV 11/21/21 18:08 25 mcg Q2HR PRN Administration Pain, Moderate (4-6) Hydrophilic Ointment 1 applic 11/06/21 04:02 Lip Therapy Vaseline TP Q2HR PRN Dry Lips NORepinephrine/NS 8 MG-250 ML 8 mg in 250 mls @ 3.75 mls/hr 11/05/21 09:00 11/18/21 03:26 Norepinephrine/Ns 8 Mg-250 Ml (Double Conc) IV 0 mcg/min TITRATE YOSSI 0 mls/hr Titration Protocol 2 MCG/MIN Vasopressin 20 unit/ Sodium 101 mls @ 9.09 mls/hr 11/05/21 23:00 11/06/21 01:00 Chloride IV 0.03 units/min TITR YOSSI 9.09 mls/hr Administration Protocol 0.03 UNITS/MIN Pantoprazole Sodium 80 mg/ 100 mls @ 10 mls/hr 11/16/21 17:00 11/20/21 01:34 Sodium Chloride IV 8 mg/hr DIRECT YOSSI 10 mls/hr Administration 8 MG/HR Fentanyl Citrate 2,000 mcg in 100 mls @ 3.12 mls/hr 11/17/21 13:00 11/20/21 10:11 Fentanyl Drip Premix IV 3 mcg/kg/hr TITR YOSSI 9.36 mls/hr Titration Protocol 1 MCG/KG/HR Dextrose 1,000 mls @ 75 mls/hr 11/17/21 16:00 11/20/21 06:44 D5w IV 11/21/21 05:19 75 mls/hr DIRECT YOSSI Administration Insulin Human Lispro 0 unit 11/06/21 12:00 11/20/21 12:40 Insulin Lispro 100 Unit/Ml SUB-Q Not Given Q6HR [facility] Protocol Levothyroxine Sodium 125 mcg 11/05/21 07:00 11/20/21 05:29 Levothyroxine 125 Mcg Tab PO Not Given DAILY@0600 [facility] Magnesium Hydroxide 30 ml 11/04/21 02:03 Magnesium Hydroxide (Mom) Oral Liqd Udc PO Q4H PRN Constipation Multi-Ingred Cream/Lotion/Oil/Oint 1 applic 11/06/21 04:02 Mineral Oil/Petrolatum, White Ophth Oint 3.5 Gm OU Q4HR PRN Dry Eye(s) Ondansetron HCl 4 mg 11/04/21 02:03 11/05/21 15:48 Ondansetron 4 Mg/2 Ml Inj IV 4 mg Q8H PRN Administration Nausea And Vomiting Polyethylene Glycol 17 gm 11/08/21 12:00 11/20/21 09:08 Polyethylene Glycol 3350 17 Gm Powder PO Not Given QDAY [facility] Potassium Chloride 40 meq 11/20/21 09:00 11/20/21 09:51 Potassium Chloride 20 Meq Packet FEEDTUBE 02/03/22 13:00 40 meq ONCE@0900 YOSSI Administration Pravastatin Sodium 20 mg 11/18/21 22:00 11/19/21 22:54 Pravastatin 20 Mg Tab PO Not Given QHS YOSSI Senna 17.6 mg 11/08/21 22:00 11/20/21 09:08 Sennosides Oral Liqd 8.8 Mg/5 Ml Oral Liqd PO Not Given Q12HR YOSSI Simple Syrup 15 ml 11/08/21 11:09 Simple Syrup 15 Ml FEEDTUBE PRN PRN Hypoglycemia Simple Syrup 30 ml 11/08/21 11:09 Simple Syrup 15 Ml FEEDTUBE PRN PRN Hypoglycemia Sodium Bicarbonate 325 mg 11/08/21 11:09 Sodium Bicarbonate 325 Mg Tab FEEDTUBE PRN PRN For Clogged Feeding Tube Sodium Chloride 10 ml 11/04/21 10:00 11/20/21 09:07 Sodium Chloride 0.9% 10 Ml Flush Syringe IV 10 ml BID YOSSI Administration Sodium Chloride 10 ml 11/04/21 02:03 Sodium Chloride 0.9% 10 Ml Flush Syringe IV PRN PRN LINE FLUSH Sodium Chloride 10 ml 11/10/21 09:57 11/17/21 20:47 Sodium Chloride 0.9% 50 Ml Ivpb IV 10 ml PRN PRN Administration FLUSH Sucralfate 1 gm 11/18/21 16:30 11/20/21 12:00 Sucralfate 1 Gm/10 Ml Oral Liqd PO 1 gm ACHS YOSSI Administration Nutrition/Malnutrition Assess - Dietary Evaluation Nutrition/Malnutrition Findings: Nutrition Notes Start: 11/04/21 17:16 Freq: Status: Active Protocol: Document 11/19/21 16:30 ISABELL (Rec: 11/19/21 16:41 [email or web address]) Nutrition Notes Initial or Follow up Brief Note Current Diet NPO. Height 5 ft Weight 62.4 kg [place] Body Weight (kg) 45.45 BMI 26.9 Weight change and time frame No body weight change reported . Weight Status Appropriate Subjective/Other Information RD consult for routine F/U on TF resume. Pt presented GI bleed. Procedure: EGD with hemostasis and biopsy. Pt continues on mechanical ventilation. indication to continue NPO. Percent of energy/protein needs met: Pt currently on NPO. Nutrition Intervention Follow-Up By: 11/21/21 Additional Comments F/U: TF restart/tolerance, vent status, Na lab/water flush
[2021-11-15] MEDS: fentaNYL DRIP Premix 2,000 MCG/100 ML BAG IV SCH (00:02)
[2021-11-15] MEDS: INSULIN LISPRO 100 UNIT/ML SUB-Q SCH ×4 (00:05→18:08)
[2021-11-15] MEDS: CEFEPIME/NS 1 GM/100 ML 1 GM/100 ML BAG IV SCH ×3 (00:05→17:32)
[2021-11-15] MEDS: LEVOTHYROXINE 125 MCG TAB PO SCH (06:12)
[2021-11-15] MEDS: FUROSEMIDE 20 MG/2 ML INJ IV SCH ×2 (06:14→17:33)
[2021-11-15 06:34] LABS: Mean Corpuscular HGB Conc 29 % (30-34); Mean Corpuscular Volume 80 fl (79-97); Platelet Count 143 K/mm3 (140-440)
[2021-11-15 06:38] LABS: Hematocrit 27.9 % (30.3-42.9); Hemoglobin 8.2 gm/dl (10.1-14.3); Red Cell Distribution Width 24.9 % (13.2-15.2)
[2021-11-15 06:58] LABS: Blood Urea Nitrogen 48 mg/dL (7-17); Calcium 7.9 mg/dL (8.4-10.2); Hemolysis Index 0
[2021-11-15 07:05] LABS: BUN/Creatinine Ratio 69
--- NOTE | 2021-11-15 08:35 | Progress Note ---
<JASBIR SEVERINO - Last Filed: 11/15/21 15:00> Assessment and Plan Assessment and plan: This is a 81-year-old female with known history of diabetes mellitus, hypertension, PPM, and arthritis admitted for sepsis and acute hypoxia respiratory failure 2/2 bilateral pneumonia requiring intubation and ventilatory support Assessment and Plan Septic shock, POA, bilateral pneumonia, bacteremia -Infectious disease consulted, appreciate recommendations -COVID-19 PCR negative -Presented with fevers, leukocytosis and hypotension -11/04 blood cultures positive with a group B strep bacteremia however repeat blood cultures on the with no growth to date -Echo showed no evidence of vegetation -ABX therapy with ceftriaxone and clindamycin -Completed clindamycin, 2 weeks of ceftriaxone planned (11/04) -Given persistent leukocytosis and fever, escalated to cefepime by ID -Monitor WBC and fever curve -Recultured on 11/11 -Follow-up culture -Bedside bronchoscopy for mucous plug on CXR 11/11 Acute hypoxic respiratory failure secondary to bilateral pneumonia, bilateral pleural effusion. Right pneomothorax -COVID-19 PCR negative -Intubated on 11/06 with 6.00 ETT at 18 at the lip -A.m. vent settings: Assist-control rate 16, tidal volume 350, PEEP 6, FiO2 40% -See RT notes for titration -11/11: Changed over bougie to 7.50 ETT at 22 at the lip -Current vent settings AC, rate 25, tidal and 400, FiO2 100%, PEEP 6 -S/p bedside bronchoscopy on 11/11 -Post bronc noted to have transient hypotension-> given LR bolus, Levophed drip -Complicated by pneumothorax -S/p chest tube placement for right pneumothorax -Chest tube to wall suction -[address] drainage 0 ml -removed overngiht on 11/15 by patient -cxr shows no pneumo -ABG/CXR per CCM -VAP bundle -Right chest wall ultrasound shows pleural effusion -SPO2 monitoring -Mucomyst every 8 -Albuterol every 8 Acute DVT in the right external iliac vein, common femoral vein, superior aspect of femoral vein -Evidenced on bilateral upper lower extremity ultrasound -Therapeutic Lovenox Hypernatremia -increase in FWF -Trend sodium Hypokalemia, hypomagnesemia, hypophosphatemia (resolved) -Repleted with K-Phos and magnesium -Trend BMP Hypotension, Heart failure with reduced EF, h/o chronic heart block s/p PPM -Remains on vasopressor support with levophed -map goal >65 -11/04 echocardiogram shows EF 30 to 35% -Cardiology consulted, appreciate recommendations -Continue beta-charleen -Not on aspirin due to allergy -Statins on hold due to elevated LFTs -Blood pressure monitor per protocol Acute encephalopathy -Neurology consulted, appreciate recommendations -CT brain showed no acute events -EEG interpreted as abnormal record due to diffuse slowing and therefore5 height noted throughout the recording, suggestive of encephalopathic process and/or drug effect, possibilities of postictal state cannot be totally excluded. Clinical correlation is in order -MRI brain and possible-> patient has metal in her body -Repeat CT head with no acute findings -Reorientation as needed -TSH/B12/ammonia level pending Acute microcytic anemia -S/p 1 unit PRBC -Trend CBC -Transfuse for hemoglobin less than 7 -repeat h/h 7.9/26.8 Transaminitis -Nutrition consult for tube feeding -BR: Senokot -last BM 11/12 -24-hour +397 ml -Trend LFTs h/o HTN/CAD s/p PCI (2004) -Statin on hold due to transaminitis -Hold home antihypertensive and resume as tolerated -Blood pressure monitoring per protocol h/o DM -SSI -Accu-Cheks every 6 -Avoid hypoglycemia h/o hypothyroidism -Continue home Synthroid DVT/GI prophylaxis -Therapeutic Lovenox, PPI The high probability of a clinically significant, sudden or life threatening deterioration of the [multi] system(s) required my full and direct attention, intervention and personal management. The aggregate critical care time was [60] minutes. This time is in addition to time spent performing reported procedures but includes the following: [x] Data Review and interpretation [x] Patient assessment and monitoring of vital signs [x] Documentation [x] Medication orders and management Disposition Plan: icu Total Time Spent with Patient (Minutes): 60 History Interval history: This is an 82-year-old female with DM, HTN , PPM and arthritis who presented to the emergency department on 11/04 for shortness of breath ongoing for the past 3 days, cough and according to family a fever of 102.2. Upon arrival of EMS patient was found to be tachypneic and hypoxic with SPO2 of 76% on room air which later improved to 88% on nonrebreather. Work-up in the emergency de partment included a CXR which showed bilateral interstitial pulmonary edema with bilateral pleural effusions and bibasilar opacities, leukocytosis and anemia with a hemoglobin of 6.1. Patient was admitted to the hospitalist service with acute anemia, acute hypoxic respiratory failure, bilateral pneumonia and COVID- 19 PUI with consults to pulmonology, infectious disease and later cardiology. Patient was eventually intubated in the emergency department on 11/06. Hospital Course to date: 11/04/2021: Empiric therapy with iv levaquin/vancomycin. COVID PCR pending. Will consult ID. PCCM consulted, will follow recs. Hypotensive this AM, ordered bolus and fluids at 150 cc/hr. May require pressor support if bp does not improve. 11/05/2021: GBS on bcx +, currently on rocephin IV. Currently on bipap due to respiratory distress overnight. Worsening BL opacities on CXR. May be volume overload vs pneumonia. Unfortunately bp too low for lasix at this point. WIll continue levophed and bipap. Once able to tolerate, may do trial of albumin/lasix. Call attempt made to Niraj, no response. Will try again tomorrow to update. 11/06/2021: Decompensated overnight requiring intubation. CXR shows worsening interstitial infiltrates. Currenlty on dopamine, levophed, vasopressin. PICC line ordered. Advised RN to place gamble for I/O monitoring. Would benefit from diuresis but very volume overloaded. Prognosis guarded 11/08: Off sedation this am, remains unresponsive only grimace to pain. Hold all sedatives agents for now, patient is off pressors this am. Hypernatremia from today's lab- D5W X1bag, and low K repleted, repeat lab in the am. Severe constipation also noted from KUB, BR added. 11/09: Sudden SPO2 drop in the 60s this am. Patient was manually bagged and deep suctioned. Patient is currently stable on the vent, repeat CXR with no significant change. D/w CCM Mucomyst and brochodilator added. Patient mentation is unchanged, continue to hold off on sedative agents. Neurology consulted. 11/10: Acute DVT noted on bilateral lower extremity Doppler ultrasound therefore she was started on Lovenox treatment dose. Failed SBT. Hypernatremia and hyperchloremia noted, free water flush adjusted. 11/11: Patient noted to be febrile with increasing of the cytosis, UA/BC sent and CXR ordered. ID escalated antibiotics to cefepime. CXR demonstrated mucous plug, bedside bronchoscopy was performed and O ETT was changed over bougie from 6 cm to 7.5. Patient was noted to have a pneumothorax postprocedure and chest tube was placed. Family updated by [facility]. Free water flush increased and will add Jaswant supplementation. 11/12: Patient not noted to follow commands, hypernatremia worsen/persist, increasing free water flush, potassium and magnesium and phosphorus repleted. Hemoglobin noted to be 7.1/24.5 from 7.03/12 yesterday. We will continue to trend and monitor. Vent changes per [facility]. Repeat CXR showed no residual pneumothorax. Consider waterseal tomorrow. Given persistent leukocytosis antibiotics escalated to cefepime per ID. 11/13: Remains on cefepime and vancomycin, vent changes per [facility]. Anemia noted and given 1 unit PRBC. And beta-charleen held in setting of Levophed drip infusing. Remains on fentanyl drip. 11/14: Patient put on CPAP trial by [facility], will continue chest tube until after extubation. Will rest on assist control. CT brain was cancelled by commodities trader and reordered. 11/15: Patient removed chest tube overnight. Will obtain cxr. remains on low dose levo. CTH completed with no acute findings. RT to place on CPAP. Hospitalist Physical - Physical exam Narrative exam: General appearance: Present: no acute distress, other (On the vent) - EENT Eyes: Present: PERRL, EOM intact ENT: poor dentition - Neck Neck: Present: normal ROM - Respiratory Respiratory effort: normal Respiratory: bilateral: diminished - Cardiovascular Rhythm: regular Heart Sounds: Present: S1 & S2. Absent: systolic murmur, diastolic murmur - Extremities Extremities: no ischemia, pulses intact, pulses symmetrical, normal temperature, normal color Peripheral Pulses: within normal limits - Abdominal General gastrointestinal: soft, non-tender, non-distended, normal bowel sounds - Integumentary Integumentary: Present: warm, dry - Psychiatric Psychiatric: cooperative - Neurologic Neurologic: CNII-XII intact - Allied Health Allied health notes reviewed: nursing, RT, social work - Constitutional Vitals: Temp Pulse Resp BP Pulse Ox 98.8 F 73 16 100/43 99 11/15/21 00:00 11/15/21 08:20 11/15/21 08:00 11/15/21 08:20 11/15/21 08:20 General appearance: Present: no acute distress, other (On the vent) HEART Score - HEART Score Troponin: Troponin T 0.033 ng/mL (0.00-0.029) H 11/05/21 06:11 Results - Labs CBC & Chem 7: 11/15/21 05:50 11/15/21 05:50 Labs: Laboratory Last Values WBC 19.9 K/mm3 (4.5-11.0) H 11/15/21 05:50 RBC 3.50 M/mm3 (3.65-5.03) L 11/15/21 05:50 Hgb 8.2 gm/dl (10.1-14.3) L 11/15/21 05:50 Hct 27.9 % (30.3-42.9) L 11/15/21 05:50 MCV 80 fl (79-97) 11/15/21 05:50 MCH 23 pg (28-32) L 11/15/21 05:50 MCHC 29 % (30-34) L 11/15/21 05:50 RDW 24.9 % (13.2-15.2) H 11/15/21 05:50 Plt Count 143 K/mm3 (140-440) 11/15/21 05:50 Add Manual Diff Complete 11/06/21 15:50 Total Counted 100 11/06/21 15:50 Seg Neutrophils % Kiln Remover 11/06/21 15:50 Seg Neuts % (Manual) 92.0 % (40.0-70.0) H 11/06/21 15:50 Band Neutrophils % 0 % 11/06/21 15:50 Lymphocytes % (Manual) 5.0 % (13.4-35.0) L 11/06/21 15:50 Reactive Lymphs % (Man) 0 % 11/06/21 15:50 Monocytes % (Manual) 3.0 % (0.0-7.3) 11/06/21 15:50 Eosinophils % (Manual) 0 % (0.0-4.3) 11/06/21 15:50 Basophils % (Manual) 0 % (0.0-1.8) 11/06/21 15:50 Metamyelocytes % 0 % 11/06/21 15:50 Myelocytes % 0 % 11/06/21 15:50 Promyelocytes % 0 % 11/06/21 15:50 Blast Cells % 0 % 11/06/21 15:50 Nucleated RBC % Not Reportable 11/06/21 15:50 Seg Neutrophils # Man 23.5 K/mm3 (1.8-7.7) H 11/06/21 15:50 Band Neutrophils # 0.0 K/mm3 11/06/21 15:50 Lymphocytes # (Manual) 1.3 K/mm3 (1.2-5.4) 11/06/21 15:50 Abs React Lymphs (Man) 0.0 K/mm3 11/06/21 15:50 Monocytes # (Manual) 0.8 K/mm3 (0.0-0.8) 11/06/21 15:50 Eosinophils # (Manual) 0.0 K/mm3 (0.0-0.4) 11/06/21 15:50 Basophils # (Manual) 0.0 K/mm3 (0.0-0.1) 11/06/21 15:50 Metamyelocytes # 0.0 K/mm3 11/06/21 15:50 Myelocytes # 0.0 K/mm3 11/06/21 15:50 Promyelocytes # 0.0 K/mm3 11/06/21 15:50 Blast Cells # 0.0 K/mm3 11/06/21 15:50 WBC Morphology Not Reportable 11/06/21 15:50 Hypersegmented Neuts Not Reportable 11/06/21 15:50 Hyposegmented Neuts Not Reportable 11/06/21 15:50 Hypogranular Neuts Not Reportable 11/06/21 15:50 Smudge Cells Not Reportable 11/06/21 15:50 Toxic Granulation Not Reportable 11/06/21 15:50 Toxic Vacuolation Not Reportable 11/06/21 15:50 Dohle Bodies Not Reportable 11/06/21 15:50 Pelger-Huet Anomaly Not Reportable 11/06/21 15:50 Irina Rods Not Reportable 11/06/21 15:50 Platelet Estimate Consistent w auto 11/06/21 15:50 Clumped Platelets Not Reportable 11/06/21 15:50 Plt Clumps, EDTA Not Reportable 11/06/21 15:50 Large Platelets Not Reportable 11/06/21 15:50 Giant Platelets Not Reportable 11/06/21 15:50 Platelet Satelliting Not Reportable 11/06/21 15:50 Plt Morphology Comment Not Reportable 11/06/21 15:50 RBC Morphology Not Reportable 11/06/21 15:50 Dimorphic RBCs Not Reportable 11/06/21 15:50 Polychromasia Not Reportable 11/06/21 15:50 Hypochromasia 2+ 11/06/21 15:50 Poikilocytosis Not Reportable 11/06/21 15:50 Anisocytosis 1+ 11/06/21 15:50 Microcytosis Not Reportable 11/06/21 15:50 Macrocytosis Not Reportable 11/06/21 15:50 Spherocytes Not Reportable 11/06/21 15:50 Pappenheimer Bodies Not Reportable 11/06/21 15:50 Sickle Cells Not Reportable 11/06/21 15:50 Target Cells Not Reportable 11/06/21 15:50 Tear Drop Cells Not Reportable 11/06/21 15:50 Ovalocytes Not Reportable 11/06/21 15:50 Helmet Cells Not Reportable 11/06/21 15:50 Odonnell-[place] Bodies Not Reportable 11/06/21 15:50 Butternut Rings Not Reportable 11/06/21 15:50 Malcom Cells Not Reportable 11/06/21 15:50 Bite Cells Not Reportable 11/06/21 15:50 Crenated Cell Not Reportable 11/06/21 15:50 Elliptocytes Not Reportable 11/06/21 15:50 Acanthocytes (Spur) Not Reportable 11/06/21 15:50 Rouleaux Not Reportable 11/06/21 15:50 Hemoglobin C Crystals Not Reportable 11/06/21 15:50 Schistocytes Not Reportable 11/06/21 15:50 Malaria parasites Not Reportable 11/06/21 15:50 Godfrey Bodies Not Reportable 11/06/21 15:50 Hem Pathologist Commnt No 11/06/21 15:50 PT 18.6 Sec. (12.2-14.9) H 11/03/21 22:32 INR 1.40 (0.87-1.13) H 11/03/21 22:32 APTT 28.9 Sec. (24.2-36.6) 11/03/21 22:32 D-Dimer 2655.00 ng/mlDDU (0-234) H 11/11/21 04:28 ABG pH 7.407 pH Units (7.350-7.450) 11/14/21 16:14 ABG pCO2 45.6 mm Hg 11/14/21 16:14 ABG pO2 80.6 mm Hg (80.0-90.0) 11/14/21 16:14 ABG HCO3 28.0 mmol/L (20.0-26.0) H 11/14/21 16:14 ABG O2 Saturation 97.0 % (95.0-99.0) 11/14/21 16:14 ABG O2 Content 7.8 (0.0-44) 11/14/21 16:14 ABG Base Excess 3.1 mmol/L (-2.0-3.0) H 11/14/21 16:14 ABG Hemoglobin 5.8 gm/dl (12.0-16.0) L 11/14/21 16:14 ABG Carboxyhemoglobin 2.0 % (0.0-5.0) 11/14/21 16:14 ABG Methemoglobin 0.3 % (0.0-1.5) 11/14/21 16:14 Oxyhemoglobin 94.8 % (95.0-99.0) L 11/14/21 16:14 FiO2 35 % 11/14/21 16:14 Sodium 149 mmol/L (137-145) H 11/15/21 05:50 Potassium 4.0 mmol/L (3.6-5.0) 11/15/21 05:50 Chloride 112.0 mmol/L (98-107) H 11/15/21 05:50 Carbon Dioxide 26 mmol/L (22-30) 11/15/21 05:50 Anion Gap 15 mmol/L 11/15/21 05:50 BUN 48 mg/dL (7-17) H 11/15/21 05:50 Creatinine 0.7 mg/dL (0.6-1.2) 11/15/21 05:50 Estimated GFR > 60 ml/min 11/15/21 05:50 BUN/Creatinine Ratio 69 % 11/15/21 05:50 Glucose 152 mg/dL (65-100) H 11/15/21 05:50 POC Glucose 137 mg/dL (70-105) H 11/15/21 05:20 Lactic Acid 3.70 mmol/L (0.7-2.0) H* 11/03/21 22:32 Calcium 7.9 mg/dL (8.4-10.2) L 11/15/21 05:50 Phosphorus 4.40 mg/dL (2.5-4.5) D 11/13/21 06:30 Magnesium 2.40 mg/dL (1.7-2.3) H 11/13/21 06:30 Ferritin 52.6 ng/mL (10.0-200.0) 11/05/21 06:11 Total Bilirubin < 0.20 mg/dL (0.1-1.2) 11/13/21 06:30 Direct Bilirubin < 0.2 mg/dL (0-0.2) 11/11/21 04:28 Indirect Bilirubin 0.1 mg/dL 11/11/21 04:28 AST 35 units/L (5-40) 11/13/21 06:30 ALT 72 units/L (7-56) H 11/13/21 06:30 Alkaline Phosphatase 100 units/L (35-129) 11/13/21 06:30 Ammonia 42.0 umol/L (25-60) 11/10/21 14:08 Lactate Dehydrogenase 187 units/L (91-180) H 11/05/21 06:11 Troponin T 0.033 ng/mL (0.00-0.029) H 11/05/21 06:11 C-Reactive Protein 22.20 mg/dL (0.00-1.30) H 11/05/21 06:11 NT-Pro-B Natriuret Pep 7895 pg/mL (0-900) H 11/03/21 22:32 Total Protein 5.2 g/dL (6.3-8.2) L 11/13/21 06:30 Albumin 2.2 g/dL (3.9-5) L 11/13/21 06:30 Albumin/Globulin Ratio 0.7 % 11/13/21 06:30 Triglycerides 66 mg/dL (2-149) 11/03/21 22:32 Cholesterol 80 mg/dL (50-199) 11/03/21 22:32 LDL Cholesterol Direct 34 mg/dL (50-130) L 11/03/21 22:32 HDL Cholesterol 42 mg/dL (40-59) 11/03/21 22:32 Cholesterol/HDL Ratio 1.90 % 11/03/21 22:32 Vitamin B12 1823 pg/mL (211-911) H 11/10/21 14:08 TSH 1.510 mlU/mL (0.270-4.200) 11/10/21 14:08 Urine Color Yellow (Yellow) 11/11/21 09:00 Urine Turbidity Slightly-cloudy (Clear) 11/11/21 09:00 Urine pH 5.0 (5.0-7.0) 11/11/21 09:00 Ur Specific [place] 1.009 (1.003-1.030) 11/11/21 09:00 Urine Protein <15 mg/dl mg/dL (Negative) 11/11/21 09:00 Urine Glucose (UA) Neg mg/dL (Negative) 11/11/21 09:00 Urine Ketones Neg mg/dL (Negative) 11/11/21 09:00 Urine Blood Mod (Negative) 11/11/21 09:00 Urine Nitrite Neg (Negative) 11/11/21 09:00 Urine Bilirubin Neg (Negative) 11/11/21 09:00 Urine Urobilinogen < 2.0 mg/dL (<2.0) 11/11/21 09:00 Ur Leukocyte Esterase Neg (Negative) 11/11/21 09:00 Urine WBC (Auto) < 1.0 /HPF (0.0-6.0) 11/11/21 09:00 Urine RBC (Auto) < 1.0 /HPF (0.0-6.0) 11/11/21 09:00 Coronavirus (PCR) Negative (Negative) 11/10/21 08:30 Blood Type O POSITIVE 11/13/21 08:30 Antibody Screen Negative 11/13/21 08:30 Crossmatch See Detail 11/13/21 08:30 Microbiology: Microbiology 11/11/21 14:22 Peripheral/Venous Blood Culture - Preliminary NO GROWTH AFTER 72 HOURS 11/11/21 14:36 Peripheral/Venous Blood Culture - Preliminary NO GROWTH AFTER 72 HOURS Gamble/IV: Voiding Method Indwelling Catheter Active Medications - Current Medications Current Medications: Generic Name Dose Route Start Last Admin Trade Name Freq PRN Reason Stop Dose Admin Acetaminophen 650 mg 11/04/21 02:03 11/12/21 05:35 Acetaminophen 325 Mg Tab PO 650 mg Q6H PRN Administration Pain MILD(1-3)/Fever >100.5/RODRIGUEZ Lipase/Protease/Amylase 1 each 11/08/21 11:09 Lipase 10,500/Protease 25,000/Amylase 43,750 (Units) Cap FEEDTUBE PRN PRN For Clogged Feeding Tube Dextrose 0 ml 11/10/21 10:52 Dextrose 10% *Hypoglycemia IV PRN PRN Hypoglycemia Docusate Sodium 100 mg 11/08/21 12:00 11/14/21 22:42 Docusate Sodium 100 Mg/10 Ml Oral Liqd PO 100 mg BID YOSSI Administration Enoxaparin Sodium 60 mg 11/10/21 22:00 11/14/21 22:41 Enoxaparin 60 Mg/0.6 Ml Inj SUB-Q 60 mg Q12HR YOSSI Administration Protocol Famotidine 10 mg 11/11/21 22:00 11/14/21 22:41 Famotidine 10 Mg Tab FEEDTUBE 10 mg BID YOSSI Administration Fentanyl 50 mcg 11/11/21 16:22 11/13/21 18:01 Fentanyl 100 Mcg/2 Ml Inj IV 50 mcg Q10MIN PRN Administration ANALGESIA Furosemide 20 mg 11/08/21 18:00 11/15/21 06:14 Furosemide 20 Mg/2 Ml Inj IV 20 mg 0600,1800 YOSSI Administration Hydrophilic Ointment 1 applic 11/06/21 04:02 Lip Therapy Vaseline TP Q2HR PRN Dry Lips NORepinephrine/NS 8 MG-250 ML 8 mg in 250 mls @ 3.75 mls/hr 11/05/21 09:00 11/14/21 12:23 Norepinephrine/Ns 8 Mg-250 Ml (Double Conc) IV 2 mcg/min TITRATE YOSSI 3.75 mls/hr Titration Protocol 2 MCG/MIN Vasopressin 20 unit/ Sodium 101 mls @ 9.09 mls/hr 11/05/21 23:00 11/06/21 01:00 Chloride IV 0.03 units/min TITR YOSSI 9.09 mls/hr Administration Protocol 0.03 UNITS/MIN Fentanyl Citrate 2,000 mcg in 100 mls @ 3.12 mls/hr 11/11/21 17:00 11/15/21 08:22 Fentanyl Drip Premix IV 0 mcg/kg/hr TITR YOSSI 0 mls/hr Titration Protocol 1 MCG/KG/HR Cefepime HCl 1 gm in 100 mls @ 200 mls/hr 11/12/21 16:00 11/15/21 00:05 Cefepime/Ns 1 Gm/100 Ml IV 200 mls/hr Q8H [facility] Administration Protocol Insulin Human Lispro 0 unit 11/06/21 12:00 11/15/21 06:15 Insulin Lispro 100 Unit/Ml SUB-Q Not Given Q6HR [facility] Protocol Levothyroxine Sodium 125 mcg 11/05/21 07:00 11/15/21 06:12 Levothyroxine 125 Mcg Tab PO 125 mcg DAILY@0600 [facility] Administration Magnesium Hydroxide 30 ml 11/04/21 02:03 Magnesium Hydroxide (Mom) Oral Liqd Udc PO Q4H PRN Constipation Multi-Ingred Cream/Lotion/Oil/Oint 1 applic 11/06/21 04:02 Mineral Oil/Petrolatum, White Ophth Oint 3.5 Gm OU Q4HR PRN Dry Eye(s) Ondansetron HCl 4 mg 11/04/21 02:03 11/05/21 15:48 Ondansetron 4 Mg/2 Ml Inj IV 4 mg Q8H PRN Administration Nausea And Vomiting Polyethylene Glycol 17 gm 11/08/21 12:00 11/14/21 09:40 Polyethylene Glycol 3350 17 Gm Powder PO 17 gm QDAY [facility] Administration Senna 17.6 mg 11/08/21 22:00 11/14/21 22:42 Sennosides Oral Liqd 8.8 Mg/5 Ml Oral Liqd PO 17.6 mg Q12HR [facility] Administration Simple Syrup 15 ml 11/08/21 11:09 Simple Syrup 15 Ml FEEDTUBE PRN PRN Hypoglycemia Simple Syrup 30 ml 11/08/21 11:09 Simple Syrup 15 Ml FEEDTUBE PRN PRN Hypoglycemia Sodium Bicarbonate 325 mg 11/08/21 11:09 Sodium Bicarbonate 325 Mg Tab FEEDTUBE PRN PRN For Clogged Feeding Tube Sodium Chloride 10 ml 11/04/21 10:00 11/15/21 08:22 Sodium Chloride 0.9% 10 Ml Flush Syringe IV Not Given BID YOSSI Sodium Chloride 10 ml 11/04/21 02:03 Sodium Chloride 0.9% 10 Ml Flush Syringe IV PRN PRN LINE FLUSH Sodium Chloride 10 ml 11/10/21 09:57 11/12/21 17:08 Sodium Chloride 0.9% 50 Ml Ivpb IV 10 ml PRN PRN Administration FLUSH Nutrition/Malnutrition Assess - Dietary Evaluation Nutrition/Malnutrition Findings: Nutrition Notes Start: 11/04/21 17:16 Freq: Status: Active Protocol: Document 11/10/21 16:03 ISABELL (Rec: 11/10/21 16:20 ISABELL [id number]) Nutrition Notes Current Diagnosis Diabetes,Sepsis,Hypertension, Respiratory Failure Other Pertinent Diagnosis Severe Sepsis/Bacteremia, Bilateral Pneumonia. Current Diet TF-Vital AF @ 60 ml/hr (since L 11/08). Height 5 ft Weight 58.967 kg [place] Body Weight (kg) 45.45 BMI 25.4 Weight change and time frame No body weight change reported . Weight Status Appropriate Subjective/Other Information RD consult for TF tolerance. TF well tolerated, according to RN notes. Percent of energy/protein needs met: Prescribed Vital AF @ 60 ml/hr provides for energy/protein needs (1,710 Kcal/107 g) during LOS, 100% Kcal; 100% AA . #1 Nutrition Diagnosis Inadequate oral intake Diagnosis Progress(for reassessment Continues documentation) Is patient on ventilator? Yes Is Patient Ambulatory and/or Out of Bed No REE-([place]-confined to bed) 1166.664 Kcal/Kg value to use for calculation 29 Approximate Energy Requirements Using 1710 kcal/Kg Calculation Used for Recommendations Kcal/kg Additional Notes Protein: 70-118 g/day (1.2-2g/ kg BW/day) Fluids: 1 ml/kcal, or as per MD. Nutrition Intervention Nutrition Support: Continue Vital AF @ 60 ml/hr. Flush: 100 ml water Q 4 hr, or as per MD. Kcal 1,710 Protein (gm) 107 Carbohydrates (gm) 158 Fat (gm) 77 Fluid (mL) 1,156 Fiber (gm) 7 % RDI: 100% Kcal; 100% AA. Goal #1 Provide at least 75% of energy /protein needs through Enteral Feeding during LOS. Goal #2 Maintain body weight within +/ -3% of admission body weight during LOS. Follow-Up By: 11/17/21 Additional Comments Continue monitoring TF tolerance and BM. <FREDERICK DALTON - Last Filed: 11/20/21 12:52> Assessment and Plan Assessment and plan: I saw and evaluated the patient. Discussed with the nurse practitioner and agree with their findings and plan as documented in this note. Hospitalist Physical - Constitutional Vitals: Temp Pulse Resp BP Pulse Ox 97.0 F L 67 15 91/44 95 11/20/21 12:00 11/20/21 11:28 11/20/21 11:27 11/20/21 11:00 11/20/21 11:27 HEART Score - HEART Score Troponin: Troponin T 0.033 ng/mL (0.00-0.029) H 11/05/21 06:11 Results - Labs CBC & Chem 7: 11/20/21 05:40 11/20/21 05:40 Labs: Laboratory Last Values WBC 8.2 K/mm3 (4.5-11.0) 11/20/21 05:40 RBC 3.40 M/mm3 (3.65-5.03) L 11/20/21 05:40 Hgb 9.1 gm/dl (10.1-14.3) L 11/20/21 05:40 Hct 28.8 % (30.3-42.9) L 11/20/21 05:40 MCV 85 fl (79-97) 11/20/21 05:40 MCH 27 pg (28-32) L 11/20/21 05:40 MCHC 31 % (30-34) 11/20/21 05:40 RDW 20.7 % (13.2-15.2) H 11/20/21 05:40 Plt Count 172 K/mm3 (140-440) 11/20/21 05:40 Add Manual Diff Complete 11/16/21 15:25 Total Counted 100 11/16/21 15:25 Seg Neutrophils % Kiln Remover 11/06/21 15:50 Seg Neuts % (Manual) 87.0 % (40.0-70.0) H 11/16/21 15:25 Band Neutrophils % 0 % 11/16/21 15:25 Lymphocytes % (Manual) 8.0 % (13.4-35.0) L 11/16/21 15:25 Reactive Lymphs % (Man) 0 % 11/16/21 15:25 Monocytes % (Manual) 5.0 % (0.0-7.3) 11/16/21 15:25 Eosinophils % (Manual) 0 % (0.0-4.3) 11/16/21 15:25 Basophils % (Manual) 0 % (0.0-1.8) 11/16/21 15:25 Metamyelocytes % 0 % 11/16/21 15:25 Myelocytes % 0 % 11/16/21 15:25 Promyelocytes % 0 % 11/16/21 15:25 Blast Cells % 0 % 11/16/21 15:25 Nucleated RBC % Not Reportable 11/16/21 15:25 Seg Neutrophils # Man 15.0 K/mm3 (1.8-7.7) H 11/16/21 15:25 Band Neutrophils # 0.0 K/mm3 11/16/21 15:25 Lymphocytes # (Manual) 1.4 K/mm3 (1.2-5.4) 11/16/21 15:25 Abs React Lymphs (Man) 0.0 K/mm3 11/16/21 15:25 Monocytes # (Manual) 0.9 K/mm3 (0.0-0.8) H 11/16/21 15:25 Eosinophils # (Manual) 0.0 K/mm3 (0.0-0.4) 11/16/21 15:25 Basophils # (Manual) 0.0 K/mm3 (0.0-0.1) 11/16/21 15:25 Metamyelocytes # 0.0 K/mm3 11/16/21 15:25 Myelocytes # 0.0 K/mm3 11/16/21 15:25 Promyelocytes # 0.0 K/mm3 11/16/21 15:25 Blast Cells # 0.0 K/mm3 11/16/21 15:25 WBC Morphology Not Reportable 11/16/21 15:25 Hypersegmented Neuts Not Reportable 11/16/21 15:25 Hyposegmented Neuts Not Reportable 11/16/21 15:25 Hypogranular Neuts Not Reportable 11/16/21 15:25 Smudge Cells Not Reportable 11/16/21 15:25 Toxic Granulation Not Reportable 11/16/21 15:25 Toxic Vacuolation Not Reportable 11/16/21 15:25 Dohle Bodies Not Reportable 11/16/21 15:25 Pelger-Huet Anomaly Not Reportable 11/16/21 15:25 Irina Rods Not Reportable 11/16/21 15:25 Platelet Estimate Consistent w auto 11/16/21 15:25 Clumped Platelets Rare 11/16/21 15:25 Plt Clumps, EDTA Not Reportable 11/16/21 15:25 Large Platelets Not Reportable 11/16/21 15:25 Giant Platelets Not Reportable 11/16/21 15:25 Platelet Satelliting Not Reportable 11/16/21 15:25 Plt Morphology Comment Not Reportable 11/16/21 15:25 RBC Morphology Not Reportable 11/16/21 15:25 Dimorphic RBCs Not Reportable 11/16/21 15:25 Polychromasia Not Reportable 11/16/21 15:25 Hypochromasia 2+ 11/16/21 15:25 Poikilocytosis Not Reportable 11/16/21 15:25 Anisocytosis 2+ 11/16/21 15:25 Microcytosis Not Reportable 11/16/21 15:25 Macrocytosis Not Reportable 11/16/21 15:25 Spherocytes Not Reportable 11/16/21 15:25 Pappenheimer Bodies Not Reportable 11/16/21 15:25 Sickle Cells Not Reportable 11/16/21 15:25 Target Cells 2+ 11/16/21 15:25 Tear Drop Cells Not Reportable 11/16/21 15:25 Ovalocytes Not Reportable 11/16/21 15:25 Helmet Cells Not Reportable 11/16/21 15:25 [place] Bodies Not Reportable 11/16/21 15:25 Butternut Rings Not Reportable 11/16/21 15:25 [place] Cells Not Reportable 11/16/21 15:25 Bite Cells Not Reportable 11/16/21 15:25 Crenated Cell Not Reportable 11/16/21 15:25 Elliptocytes Not Reportable 11/16/21 15:25 Acanthocytes (Spur) Not Reportable 11/16/21 15:25 Rouleaux Not Reportable 11/16/21 15:25 Hemoglobin C Crystals Not Reportable 11/16/21 15:25 Schistocytes Not Reportable 11/16/21 15:25 Malaria parasites Not Reportable 11/16/21 15:25 Godfrey Bodies Not Reportable 11/16/21 15:25 Hem Pathologist Commnt No 11/16/21 15:25 PT 18.6 Sec. (12.2-14.9) H 11/03/21 22:32 INR 1.40 (0.87-1.13) H 11/03/21 22:32 APTT 28.9 Sec. (24.2-36.6) 11/03/21 22:32 D-Dimer 2655.00 ng/mlDDU (0-234) H 11/11/21 04:28 ABG pH 7.407 pH Units (7.350-7.450) 11/14/21 16:14 ABG pCO2 45.6 mm Hg 11/14/21 16:14 ABG pO2 80.6 mm Hg (80.0-90.0) 11/14/21 16:14 ABG HCO3 28.0 mmol/L (20.0-26.0) H 11/14/21 16:14 ABG O2 Saturation 97.0 % (95.0-99.0) 11/14/21 16:14 ABG O2 Content 7.8 (0.0-44) 11/14/21 16:14 ABG Base Excess 3.1 mmol/L (-2.0-3.0) H 11/14/21 16:14 ABG Hemoglobin 5.8 gm/dl (12.0-16.0) L 11/14/21 16:14 ABG Carboxyhemoglobin 2.0 % (0.0-5.0) 11/14/21 16:14 ABG Methemoglobin 0.3 % (0.0-1.5) 11/14/21 16:14 Oxyhemoglobin 94.8 % (95.0-99.0) L 11/14/21 16:14 FiO2 35 % 11/14/21 16:14 Sodium 141 mmol/L (137-145) 11/20/21 05:40 Potassium 3.5 mmol/L (3.6-5.0) L 11/20/21 05:40 Chloride 108.9 mmol/L (98-107) H 11/20/21 05:40 Carbon Dioxide 23 mmol/L (22-30) 11/20/21 05:40 Anion Gap 13 mmol/L 11/20/21 05:40 BUN 37 mg/dL (7-17) H 11/20/21 05:40 Creatinine 0.8 mg/dL (0.6-1.2) 11/20/21 05:40 Estimated GFR > 60 ml/min 11/20/21 05:40 BUN/Creatinine Ratio 46 % 11/20/21 05:40 Glucose 117 mg/dL (65-100) H 11/20/21 05:40 POC Glucose 74 mg/dL (70-105) 11/20/21 12:04 Lactic Acid 3.70 mmol/L (0.7-2.0) H* 11/03/21 22:32 Calcium 7.5 mg/dL (8.4-10.2) L 11/20/21 05:40 Phosphorus 3.80 mg/dL (2.5-4.5) D 11/19/21 04:55 Magnesium 2.30 mg/dL (1.7-2.3) 11/19/21 04:55 Ferritin 52.6 ng/mL (10.0-200.0) 11/05/21 06:11 Total Bilirubin 0.50 mg/dL (0.1-1.2) 11/17/21 05:56 Direct Bilirubin < 0.2 mg/dL (0-0.2) 11/11/21 04:28 Indirect Bilirubin 0.1 mg/dL 11/11/21 04:28 AST 36 units/L (5-40) 11/17/21 05:56 ALT 47 units/L (7-56) 11/17/21 05:56 Alkaline Phosphatase 107 units/L (35-129) 11/17/21 05:56 Ammonia 42.0 umol/L (25-60) 11/10/21 14:08 Lactate Dehydrogenase 187 units/L (91-180) H 11/05/21 06:11 Troponin T 0.033 ng/mL (0.00-0.029) H 11/05/21 06:11 C-Reactive Protein 22.20 mg/dL (0.00-1.30) H 11/05/21 06:11 NT-Pro-B Natriuret Pep 7895 pg/mL (0-900) H 11/03/21 22:32 Total Protein 5.1 g/dL (6.3-8.2) L 11/17/21 05:56 Albumin 2.2 g/dL (3.9-5) L 11/17/21 05:56 Albumin/Globulin Ratio 0.8 % 11/17/21 05:56 Triglycerides 66 mg/dL (2-149) 11/03/21 22:32 Cholesterol 80 mg/dL (50-199) 11/03/21 22:32 LDL Cholesterol Direct 34 mg/dL (50-130) L 11/03/21 22:32 HDL Cholesterol 42 mg/dL (40-59) 11/03/21 22:32 Cholesterol/HDL Ratio 1.90 % 11/03/21 22:32 Vitamin B12 1823 pg/mL (211-911) H 11/10/21 14:08 TSH 1.510 mlU/mL (0.270-4.200) 11/10/21 14:08 Urine Color Yellow (Yellow) 11/11/21 09:00 Urine Turbidity Slightly-cloudy (Clear) 11/11/21 09:00 Urine pH 5.0 (5.0-7.0) 11/11/21 09:00 Ur Specific [place] 1.009 (1.003-1.030) 11/11/21 09:00 Urine Protein <15 mg/dl mg/dL (Negative) 11/11/21 09:00 Urine Glucose (UA) Neg mg/dL (Negative) 11/11/21 09:00 Urine Ketones Neg mg/dL (Negative) 11/11/21 09:00 Urine Blood Mod (Negative) 11/11/21 09:00 Urine Nitrite Neg (Negative) 11/11/21 09:00 Urine Bilirubin Neg (Negative) 11/11/21 09:00 Urine Urobilinogen < 2.0 mg/dL (<2.0) 11/11/21 09:00 Ur Leukocyte Esterase Neg (Negative) 11/11/21 09:00 Urine WBC (Auto) < 1.0 /HPF (0.0-6.0) 11/11/21 09:00 Urine RBC (Auto) < 1.0 /HPF (0.0-6.0) 11/11/21 09:00 Coronavirus (PCR) Negative (Negative) 11/10/21 08:30 Blood Type O POSITIVE 11/18/21 10:45 Antibody Screen Negative 11/18/21 10:45 Crossmatch See Detail 11/18/21 10:45 Gamble/IV: Voiding Method Incontinent Active Medications - Current Medications Current Medications: Generic Name Dose Route Start Last Admin Trade Name Freq PRN Reason Stop Dose Admin Acetaminophen 650 mg 11/04/21 02:03 11/16/21 15:43 Acetaminophen 325 Mg Tab PO 650 mg Q6H PRN Administration Pain MILD(1-3)/Fever >100.5/RODRIGUEZ Hydrocodone Bitart/Acetaminophen 1 each 11/15/21 20:00 11/20/21 09:52 Hydrocodone/Acetaminophen 10-325mg Tab PO 11/20/21 19:59 1 each TID YOSSI Administration Lipase/Protease/Amylase 1 each 11/08/21 11:09 Lipase 10,500/Protease 25,000/Amylase 43,750 (Units) Dr Lema FEEDTUBE PRN PRN For Clogged Feeding Tube Buspirone HCl 7.5 mg 11/17/21 22:00 11/20/21 09:52 Buspirone 5 Mg Tab PO 7.5 mg BID YOSSI Administration Dextrose 0 ml 11/10/21 10:52 11/20/21 12:37 Dextrose 10% *Hypoglycemia IV 50 ml PRN PRN Administration Hypoglycemia Docusate Sodium 100 mg 11/08/21 12:00 11/20/21 09:08 Docusate Sodium 100 Mg/10 Ml Oral Liqd PO Not Given BID YOSSI Fentanyl 1 applic 11/17/21 13:00 11/20/21 09:07 Fentanyl 25 Mcg/Hr Patch 72hr TD 1 applic Q3D YOSSI Administration Fentanyl 25 mcg 11/19/21 18:09 11/20/21 07:05 Fentanyl 100 Mcg/2 Ml Inj IV 11/21/21 18:08 25 mcg Q2HR PRN Administration Pain, Moderate (4-6) Hydrophilic Ointment 1 applic 11/06/21 04:02 Lip Therapy Vaseline TP Q2HR PRN Dry Lips NORepinephrine/NS 8 MG-250 ML 8 mg in 250 mls @ 3.75 mls/hr 11/05/21 09:00 11/18/21 03:26 Norepinephrine/Ns 8 Mg-250 Ml (Double Conc) IV 0 mcg/min TITRATE YOSSI 0 mls/hr Titration Protocol 2 MCG/MIN Vasopressin 20 unit/ Sodium 101 mls @ 9.09 mls/hr 11/05/21 23:00 11/06/21 01:00 Chloride IV 0.03 units/min TITR YOSSI 9.09 mls/hr Administration Protocol 0.03 UNITS/MIN Pantoprazole Sodium 80 mg/ 100 mls @ 10 mls/hr 11/16/21 17:00 11/20/21 01:34 Sodium Chloride IV 8 mg/hr DIRECT YOSSI 10 mls/hr Administration 8 MG/HR Fentanyl Citrate 2,000 mcg in 100 mls @ 3.12 mls/hr 11/17/21 13:00 11/20/21 10:11 Fentanyl Drip Premix IV 3 mcg/kg/hr TITR YOSSI 9.36 mls/hr Titration Protocol 1 MCG/KG/HR Dextrose 1,000 mls @ 75 mls/hr 11/17/21 16:00 11/20/21 06:44 D5w IV 11/21/21 05:19 75 mls/hr DIRECT YOSSI Administration Insulin Human Lispro 0 unit 11/06/21 12:00 11/20/21 12:40 Insulin Lispro 100 Unit/Ml SUB-Q Not Given Q6HR [facility] Protocol Levothyroxine Sodium 125 mcg 11/05/21 07:00 11/20/21 05:29 Levothyroxine 125 Mcg Tab PO Not Given DAILY@0600 [facility] Magnesium Hydroxide 30 ml 11/04/21 02:03 Magnesium Hydroxide (Mom) Oral Liqd Udc PO Q4H PRN Constipation Multi-Ingred Cream/Lotion/Oil/Oint 1 applic 11/06/21 04:02 Mineral Oil/Petrolatum, White Ophth Oint 3.5 Gm OU Q4HR PRN Dry Eye(s) Ondansetron HCl 4 mg 11/04/21 02:03 11/05/21 15:48 Ondansetron 4 Mg/2 Ml Inj IV 4 mg Q8H PRN Administration Nausea And Vomiting Polyethylene Glycol 17 gm 11/08/21 12:00 11/20/21 09:08 Polyethylene Glycol 3350 17 Gm Powder PO Not Given QDAY [facility] Potassium Chloride 40 meq 11/20/21 09:00 11/20/21 09:51 Potassium Chloride 20 Meq Packet FEEDTUBE 11/20/21 13:00 40 meq ONCE@0900 YOSSI Administration Pravastatin Sodium 20 mg 11/18/21 22:00 11/19/21 22:54 Pravastatin 20 Mg Tab PO Not Given QHS YOSSI Senna 17.6 mg 11/08/21 22:00 11/20/21 09:08 Sennosides Oral Liqd 8.8 Mg/5 Ml Oral Liqd PO Not Given Q12HR YOSSI Simple Syrup 15 ml 11/08/21 11:09 Simple Syrup 15 Ml FEEDTUBE PRN PRN Hypoglycemia Simple Syrup 30 ml 11/08/21 11:09 Simple Syrup 15 Ml FEEDTUBE PRN PRN Hypoglycemia Sodium Bicarbonate 325 mg 11/08/21 11:09 Sodium Bicarbonate 325 Mg Tab FEEDTUBE PRN PRN For Clogged Feeding Tube Sodium Chloride 10 ml 11/04/21 10:00 11/20/21 09:07 Sodium Chloride 0.9% 10 Ml Flush Syringe IV 10 ml BID YOSSI Administration Sodium Chloride 10 ml 11/04/21 02:03 Sodium Chloride 0.9% 10 Ml Flush Syringe IV PRN PRN LINE FLUSH Sodium Chloride 10 ml 11/10/21 09:57 11/17/21 20:47 Sodium Chloride 0.9% 50 Ml Ivpb IV 10 ml PRN PRN Administration FLUSH Sucralfate 1 gm 11/18/21 16:30 11/20/21 12:00 Sucralfate 1 Gm/10 Ml Oral Liqd PO 1 gm ACHS YOSSI Administration Nutrition/Malnutrition Assess - Dietary Evaluation Nutrition/Malnutrition Findings: Nutrition Notes Start: 11/04/21 17:16 Freq: Status: Active Protocol: Document 11/19/21 16:30 ISABELL (Rec: 11/19/21 16:41 ISABELL [id number]) Nutrition Notes Initial or Follow up Brief Note Current Diet NPO. Height 5 ft Weight 62.4 kg [place] Body Weight (kg) 45.45 BMI 26.9 Weight change and time frame No body weight change reported . Weight Status Appropriate Subjective/Other Information RD consult for routine F/U on TF resume. Pt presented GI bleed. Procedure: EGD with hemostasis and biopsy. Pt continues on mechanical ventilation. indication to continue NPO. Percent of energy/protein needs met: Pt currently on NPO. Nutrition Intervention Follow-Up By: 11/21/21 Additional Comments F/U: TF restart/tolerance, vent status, Na lab/water flush
[2021-11-15] MEDS: POLYETHYLENE GLYCOL 3350 17 GM POWDER PO SCH (09:13)
[2021-11-15] MEDS: DOCUSATE SODIUM 100 MG/10 ML ORAL LIQD PO SCH ×2 (09:13→22:42)
[2021-11-15] MEDS: FAMOTIDINE 10 MG TAB FEEDTUBE SCH ×2 (09:13→22:42)
[2021-11-15] MEDS: ENOXAPARIN 60 MG/0.6 ML INJ SUB-Q SCH ×2 (09:13→22:42)
[2021-11-15] MEDS: SENNOSIDES ORAL LIQD 8.8 MG/5 ML ORAL LIQD PO SCH ×2 (09:13→22:42)
[2021-11-15] MEDS: fentaNYL 100 MCG/2 ML INJ IV PRN (10:42)
--- NOTE | 2021-11-15 10:42 | Cat Scan Report ---
CT head/brain wo con INDICATION / CLINICAL INFORMATION: 81 years Female; ams. Patient in distress. Best images possible.. TECHNIQUE: Routine CT head without contrast. All CT scans at this location are performed using CT dos e reduction for ALARA by means of automated exposure control. COMPARISON: 11/06/2021 FINDINGS: BRAIN / INTRACRANIAL CONTENTS: No acute hemorrhage, mass effect, midline shift, hydrocephalus, or acu te, large territorial infarct. Mild to moderate, diffuse cerebral and mild cerebellar atrophy. Moderate degree of hippocampal atroph y suggested bilaterally. There are moderate, somewhat confluent areas of decreased attenuation in the white matter of the cere bral hemispheres. These are nonspecific findings and may be related to microangiopathy (hypertension, diabetes, atherosclerosis), given the patient's age. It might be difficult to evaluate for small are as of ischemia without diffusion imaging by MRI. CRANIOCERVICAL JUNCTION: No significant abnormality. ORBITS: No significant abnormality of visualized orbits. SINUSES / MASTOIDS: Patient is intubated. OG tube noted as well. Visualized paranasal sinuses are ess entially clear. However, there is moderate opacification of the mastoids. Nasal septum perforation no wayne. ADDITIONAL FINDINGS: Atherosclerotic disease is seen in the anterior and posterior circulation. IMPRESSION: 1. No focal mass, hemorrhage, hydrocephalus, or acute, large territorial infarct. Signer Name: Tristan Lockett MD, III Signed: 11/15/2021 10:38 AM Workstation Name: [email or web address]
--- NOTE | 2021-11-15 11:34 | XRay Report ---
ABDOMEN AP PORTABLE SUPINE 1047 INDICATION: OGT placement COMPARISON: None available. FINDINGS: Orogastric tube extends well into the stomach. Signer Name: Yousif Sanches MD Signed: 11/15/2021 11:29 AM Workstation Name: [id number]
--- NOTE | 2021-11-15 13:08 | XRay Report ---
CHEST 1 VIEW INDICATION / CLINICAL INFORMATION: chest tube removal STUDY TIME: 1229 COMPARISON: 11/12/2021 FINDINGS: SUPPORT DEVICES: Right thoracostomy tube has been removed. Pacer is again noted. Nasogastric tube and endotracheal tube appear unchanged. HEART / MEDIASTINUM: Stable LUNGS / PLEURA: Patient is strongly rotated. Congestive changes and pulmonary edema appear moderately worse. Left pleural effusion is more prominent. Left basilar infiltrate is more prominent. No pneumo thorax. ADDITIONAL FINDINGS: No significant additional findings. Signer Name: Yousif Sanches MD Signed: 11/15/2021 1:04 PM Workstation Name: [id number]
--- NOTE | 2021-11-15 13:49 | Progress Note ---
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 (Discussed care plan at length with her and daughter over the phone and answered all their questions; they alsdo mention she takes Lortabs 10 4 times daily religiously for chronic pain) - schedule lortabs 10 tid - repeat CXR in am for surveillance - add scopolamine patch for better secretion control - wean Levophed for target MAP > 65 mmHg - continue treatment dose Lovenox for DVT - continue care as below otherwise; - Daily SAT and SBT assessment as tolerated - continue to wean supplemental oxygen for target O2 sat's > 90% acutely - VAP bundle addressed - continue lung protective strategies - continue bronchodilators with pulmonary hygiene per RT - wean per pulmonary driven protocols otherwise - avoid nephrotoxins, renally dose all medications - continue accuchecks with glycemic control per SSI (While critically ill target blood glucose of 140-180 mg/dL; avoid hypoglycemia) - sedation prn for target RASS 0 to -1 - antibiotics per ID recommendations - continue to avoid benzodiazepine's, reduce the possibility of delirium - prn analgesia per CPOT score - Maintenance of sleep-wake cycle, avoid delirium - continue enteral nutritional support at goal rate as tolerated - G.I. & VTE prophylaxis - PT/OT/ROM exercises - continue mobility protocols for pressure ulcer prophylaxis - Monitor hemodynamics closely - continue other care per attending / other consultants - discharge planning ongoing concurrently COVID SPECIFIC INTERVENTIONS - COVID-19 PCR negative .... Re-evaluate in am & prn CONDITION: CRITICAL PROGNOSIS: GUARDED CODE STATUS: FULL CODE The high probability of a clinically significant, sudden or life-threatening deterioration of the [respiratory, cardiovascular & neurologic] system(s) required my full and direct attention, intervention and personal management. The aggregate critical care time was [38] minutes without overlap. Time includes spent on; [x] Data Review and interpretation [x] Patient assessment and monitoring of vital signs [x] Documentation [x] Medication orders and management Subjective Date of service: 11/15/21 Principal diagnosis: Septic shock; AHRF; Anemia; Pneumonia; L. pleural effusion; HFrEF; Pulm HTN Interval history: Patient is seen today for: Septic shock; Acute hypoxemic respiratory failure; Anemia; Bilateral pneumonia; Left pleural effusion; HFrEF 30-35%; Pulm HTN RVSP 49 Seen and examined at bedside; 24hour events reviewed; nursing and respiratory care staff consulted; no adverse overnight events reported to me; resting in bed; remains on MVS; dislodged her chest tube overnight; repeat CXR without recurrent PTX; failed SBT after 1-2 hours with po-supp @ 20 cm H2O Objective Vital Signs - 12hr 11/15/21 11/15/21 11/15/21 02:00 02:15 02:31 Temperature Pulse Rate 95 H 94 H 79 Pulse Rate [ From Monitor] Respiratory 18 14 16 Rate Blood Pressure 117/74 127/65 101/36 O2 Sat by Pulse Oximetry 11/15/21 11/15/21 11/15/21 02:45 03:00 03:15 Temperature Pulse Rate 83 87 91 H Pulse Rate [ From Monitor] Respiratory 15 14 13 Rate Blood Pressure 118/54 122/57 132/62 O2 Sat by Pulse Oximetry 11/15/21 11/15/21 11/15/21 03:30 03:45 04:00 Temperature Pulse Rate 87 91 H 93 H Pulse Rate [ 93 H From Monitor] Respiratory 14 16 19 Rate Blood Pressure 122/56 128/63 134/67 O2 Sat by Pulse 98 Oximetry 11/15/21 11/15/21 11/15/21 04:02 04:15 04:30 Temperature Pulse Rate 93 H 88 89 Pulse Rate [ From Monitor] Respiratory 14 11 L Rate Blood Pressure 134/67 121/60 129/57 O2 Sat by Pulse 97 Oximetry 11/15/21 11/15/21 11/15/21 04:45 05:01 05:15 Temperature Pulse Rate 87 77 89 Pulse Rate [ From Monitor] Respiratory 10 L 14 13 Rate Blood Pressure 114/59 101/38 129/56 O2 Sat by Pulse Oximetry 11/15/21 11/15/21 11/15/21 05:30 05:45 06:01 Temperature Pulse Rate 91 H 93 H 94 H Pulse Rate [ From Monitor] Respiratory 16 14 13 Rate Blood Pressure 135/59 143/65 141/56 O2 Sat by Pulse Oximetry 11/15/21 11/15/21 11/15/21 06:15 06:30 06:45 Temperature Pulse Rate 96 H 92 H 86 Pulse Rate [ From Monitor] Respiratory 15 13 15 Rate Blood Pressure 144/63 129/65 126/57 O2 Sat by Pulse 98 98 Oximetry 11/15/21 11/15/21 11/15/21 07:01 07:15 07:30 Temperature Pulse Rate 81 87 80 Pulse Rate [ From Monitor] Respiratory 9 L 16 15 Rate Blood Pressure 111/46 110/56 108/48 O2 Sat by Pulse 98 96 99 Oximetry 11/15/21 11/15/21 11/15/21 07:45 08:00 08:15 Temperature 97.9 F Pulse Rate 75 76 76 Pulse Rate [ From Monitor] Respiratory 13 16 16 Rate Blood Pressure 100/43 102/44 100/43 O2 Sat by Pulse 98 98 99 Oximetry 11/15/21 11/15/21 11/15/21 08:20 08:30 08:45 Temperature Pulse Rate 73 78 81 Pulse Rate [ From Monitor] Respiratory 14 15 Rate Blood Pressure 100/43 114/51 114/51 O2 Sat by Pulse 99 100 100 Oximetry 11/15/21 11/15/21 11/15/21 09:00 09:15 09:59 Temperature Pulse Rate 95 H 96 H 116 H Pulse Rate [ From Monitor] Respiratory 14 15 26 H Rate Blood Pressure 141/63 141/63 O2 Sat by Pulse 100 99 Oximetry 11/15/21 11/15/21 11/15/21 10:01 10:15 10:30 Temperature Pulse Rate 110 H 108 H 99 H Pulse Rate [ From Monitor] Respiratory 24 25 H 14 Rate Blood Pressure 129/55 129/55 135/57 O2 Sat by Pulse 60 L 87 98 Oximetry 11/15/21 11/15/21 11/15/21 10:45 11:01 11:15 Temperature Pulse Rate 95 H 90 81 Pulse Rate [ From Monitor] Respiratory 15 14 14 Rate Blood Pressure 137/56 124/50 124/50 O2 Sat by Pulse 98 97 98 Oximetry 11/15/21 11/15/21 11/15/21 11:30 11:45 12:00 Temperature 98.5 F Pulse Rate 79 78 78 Pulse Rate [ From Monitor] Respiratory 16 15 15 Rate Blood Pressure 87/38 103/45 116/50 O2 Sat by Pulse 98 99 100 Oximetry 11/15/21 11/15/21 11/15/21 12:05 12:15 12:30 Temperature Pulse Rate 77 82 77 Pulse Rate [ From Monitor] Respiratory 18 15 Rate Blood Pressure 116/50 119/55 109/52 O2 Sat by Pulse 100 100 100 Oximetry 11/15/21 11/15/21 11/15/21 12:45 13:01 13:15 Temperature Pulse Rate 82 86 91 H Pulse Rate [ From Monitor] Respiratory 16 14 15 Rate Blood Pressure 109/52 125/62 129/63 O2 Sat by Pulse 100 100 99 Oximetry Constitutional: appears uncomfortable, other (ETT to MVS, frail elderly woman with mildly increased respiratory effort at rest) Eyes: non-icteric ENT: oropharynx moist, oropharyngeal exudate pre (clear frothy), other (ETT 23 cm ELIZABETH) Neck: supple, no lymphadenopathy, no JVD Effort: normal, mildly labored Ascultation: Bilateral: diminished breath sounds, rhonchi Percussion: Bilateral: not dull Cardiovascular: regular rate and rhythm, other (S1,S2) Gastrointestinal: normoactive bowel sounds, soft, non-tender, non-distended Integumentary: normal Extremities: no edema, pink and warm, pulses normal, edema (trace) Neurologic: non-focal exam (grossly), pupils equal and round, CN II-XII normal, unable to assess, other (sedated) Psychiatric: other (sedated) CBC and BMP: 11/15/21 05:50 11/15/21 05:50 ABG, PT/INR, D-dimer: ABG ABG pH 7.407 pH Units (7.350-7.450) 11/14/21 16:14 ABG pCO2 45.6 mm Hg 11/14/21 16:14 ABG pO2 80.6 mm Hg (80.0-90.0) 11/14/21 16:14 ABG O2 Saturation 97.0 % (95.0-99.0) 11/14/21 16:14 PT/INR, D-dimer PT 18.6 Sec. (12.2-14.9) H 11/03/21 22:32 INR 1.40 (0.87-1.13) H 11/03/21 22:32 D-Dimer 2655.00 ng/mlDDU (0-234) H 11/11/21 04:28 Abnormal lab findings: Abnormal Labs 11/03/21 11/03/21 11/03/21 22:32 22:32 22:32 WBC 29.3 H RBC 2.93 L Hgb 6.1 L Hct 21.9 L MCV 75 L MCH 21 L MCHC 28 L RDW 19.7 H Plt Count Seg Neuts % (Manual) 97.0 H Lymphocytes % (Manual) 3.0 L Seg Neutrophils # Man 28.4 H Lymphocytes # (Manual) 0.9 L Monocytes # (Manual) PT 18.6 H INR 1.40 H D-Dimer ABG pH ABG pO2 ABG HCO3 ABG O2 Saturation ABG Base Excess ABG Hemoglobin Oxyhemoglobin Sodium Potassium Chloride Carbon Dioxide 20 L BUN 33 H Glucose 119 H POC Glucose Lactic Acid Calcium 8.3 L Phosphorus Magnesium AST ALT Alkaline Phosphatase Lactate Dehydrogenase Troponin T 0.035 H C-Reactive Protein NT-Pro-B Natriuret Pep Total Protein Albumin LDL Cholesterol Direct 34 L Vitamin B12 Crossmatch 11/03/21 11/03/21 11/03/21 22:32 22:32 23:57 WBC RBC Hgb Hct MCV MCH MCHC RDW Plt Count Seg Neuts % (Manual) Lymphocytes % (Manual) Seg Neutrophils # Man Lymphocytes # (Manual) Monocytes # (Manual) PT INR D-Dimer ABG pH ABG pO2 ABG HCO3 ABG O2 Saturation ABG Base Excess ABG Hemoglobin Oxyhemoglobin Sodium Potassium Chloride Carbon Dioxide BUN Glucose POC Glucose Lactic Acid 3.70 H* Calcium Phosphorus Magnesium AST ALT Alkaline Phosphatase 139 H Lactate Dehydrogenase Troponin T C-Reactive Protein NT-Pro-B Natriuret Pep 7895 H Total Protein Albumin 3.5 L LDL Cholesterol Direct Vitamin B12 Crossmatch See Detail 11/04/21 11/04/21 11/05/21 00:59 13:58 00:51 WBC 27.9 H RBC 3.28 L Hgb 7.3 L Hct 25.5 L MCV 78 L MCH 22 L MCHC 29 L RDW 19.1 H Plt Count Seg Neuts % (Manual) 96.0 H Lymphocytes % (Manual) 2.0 L Seg Neutrophils # Man 26.8 H Lymphocytes # (Manual) 0.6 L Monocytes # (Manual) PT INR D-Dimer ABG pH ABG pO2 ABG HCO3 ABG O2 Saturation ABG Base Excess ABG Hemoglobin Oxyhemoglobin Sodium Potassium Chloride Carbon Dioxide BUN Glucose POC Glucose Lactic Acid Calcium Phosphorus Magnesium AST ALT Alkaline Phosphatase Lactate Dehydrogenase Troponin T 0.051 H D 0.032 H D C-Reactive Protein NT-Pro-B Natriuret Pep Total Protein Albumin LDL Cholesterol Direct Vitamin B12 Crossmatch 11/05/21 11/05/21 11/05/21 06:11 06:11 06:11 WBC 31.8 H RBC 3.57 L Hgb 8.0 L Hct 27.7 L MCV 78 L MCH 22 L MCHC 29 L RDW 19.2 H Plt Count Seg Neuts % (Manual) 91.0 H Lymphocytes % (Manual) 4.5 L Seg Neutrophils # Man 28.9 H Lymphocytes # (Manual) Monocytes # (Manual) 1.1 H PT INR D-Dimer 1494.53 H ABG pH ABG pO2 ABG HCO3 ABG O2 Saturation ABG Base Excess ABG Hemoglobin Oxyhemoglobin Sodium Potassium Chloride Carbon Dioxide 19 L BUN 42 H Glucose 115 H POC Glucose Lactic Acid Calcium Phosphorus Magnesium AST 43 H ALT Alkaline Phosphatase Lactate Dehydrogenase 187 H Troponin T C-Reactive Protein 22.20 H NT-Pro-B Natriuret Pep Total Protein 6.0 L Albumin 3.2 L LDL Cholesterol Direct Vitamin B12 Crossmatch 11/05/21 11/05/21 11/06/21 06:11 12:15 00:30 WBC RBC Hgb Hct MCV MCH MCHC RDW Plt Count Seg Neuts % (Manual) Lymphocytes % (Manual) Seg Neutrophils # Man Lymphocytes # (Manual) Monocytes # (Manual) PT INR D-Dimer ABG pH ABG pO2 ABG HCO3 ABG O2 Saturation ABG Base Excess ABG Hemoglobin Oxyhemoglobin Sodium Potassium Chloride Carbon Dioxide BUN Glucose POC Glucose 113 H 69 L Lactic Acid Calcium Phosphorus Magnesium AST ALT Alkaline Phosphatase Lactate Dehydrogenase Troponin T 0.033 H C-Reactive Protein NT-Pro-B Natriuret Pep Total Protein Albumin LDL Cholesterol Direct Vitamin B12 Crossmatch 11/06/21 11/06/21 11/06/21 05:50 15:50 15:50 WBC 25.5 H RBC 3.62 L Hgb 8.0 L Hct 27.5 L MCV 76 L MCH 22 L MCHC 29 L RDW 19.6 H Plt Count Seg Neuts % (Manual) 92.0 H Lymphocytes % (Manual) 5.0 L Seg Neutrophils # Man 23.5 H Lymphocytes # (Manual) Monocytes # (Manual) PT INR D-Dimer ABG pH 7.305 L ABG pO2 ABG HCO3 15.8 L ABG O2 Saturation ABG Base Excess -9.6 L ABG Hemoglobin 8.6 L Oxyhemoglobin 94.6 L Sodium Potassium Chloride 113.9 H Carbon Dioxide 17 L BUN 56 H Glucose 114 H POC Glucose Lactic Acid Calcium 7.9 L Phosphorus Magnesium AST 1410 H ALT 934 H Alkaline Phosphatase 142 H Lactate Dehydrogenase Troponin T C-Reactive Protein NT-Pro-B Natriuret Pep Total Protein 5.0 L Albumin 2.6 L LDL Cholesterol Direct Vitamin B12 Crossmatch 11/07/21 11/07/21 11/07/21 03:30 04:50 08:07 WBC RBC Hgb Hct MCV MCH MCHC RDW Plt Count Seg Neuts % (Manual) Lymphocytes % (Manual) Seg Neutrophils # Man Lymphocytes # (Manual) Monocytes # (Manual) PT INR D-Dimer ABG pH ABG pO2 296.9 H ABG HCO3 18.1 L ABG O2 Saturation 99.5 H ABG Base Excess -5.9 L ABG Hemoglobin 7.6 L Oxyhemoglobin Sodium Potassium Chloride Carbon Dioxide BUN Glucose POC Glucose 106 H 108 H Lactic Acid Calcium Phosphorus Magnesium AST ALT Alkaline Phosphatase Lactate Dehydrogenase Troponin T C-Reactive Protein NT-Pro-B Natriuret Pep Total Protein Albumin LDL Cholesterol Direct Vitamin B12 Crossmatch 11/08/21 11/08/21 11/08/21 03:10 18:05 23:43 WBC RBC Hgb Hct MCV MCH MCHC RDW Plt Count Seg Neuts % (Manual) Lymphocytes % (Manual) Seg Neutrophils # Man Lymphocytes # (Manual) Monocytes # (Manual) PT INR D-Dimer ABG pH ABG pO2 127.4 H ABG HCO3 ABG O2 Saturation ABG Base Excess -3.4 L ABG Hemoglobin 7.4 L Oxyhemoglobin Sodium Potassium Chloride Carbon Dioxide BUN Glucose POC Glucose 113 H 141 H Lactic Acid Calcium Phosphorus Magnesium AST ALT Alkaline Phosphatase Lactate Dehydrogenase Troponin T C-Reactive Protein NT-Pro-B Natriuret Pep Total Protein Albumin LDL Cholesterol Direct Vitamin B12 Crossmatch 11/08/21 11/08/21 11/09/21 Unknown Unknown 02:00 WBC 14.5 H RBC 3.35 L Hgb 7.5 L 8.1 L Hct 25.4 L 27.6 L MCV 76 L 76 L MCH 23 L 22 L MCHC RDW 19.9 H 19.9 H Plt Count Seg Neuts % (Manual) Lymphocytes % (Manual) Seg Neutrophils # Man Lymphocytes # (Manual) Monocytes # (Manual) PT INR D-Dimer ABG pH ABG pO2 ABG HCO3 ABG O2 Saturation ABG Base Excess ABG Hemoglobin Oxyhemoglobin Sodium 154 H D Potassium 3.3 L Chloride 120.7 H Carbon Dioxide 20 L BUN 38 H Glucose POC Glucose Lactic Acid Calcium 8.3 L Phosphorus Magnesium AST ALT Alkaline Phosphatase Lactate Dehydrogenase Troponin T C-Reactive Protein NT-Pro-B Natriuret Pep Total Protein Albumin LDL Cholesterol Direct Vitamin B12 Crossmatch 11/09/21 11/09/21 11/09/21 02:00 02:31 05:12 WBC RBC Hgb Hct MCV MCH MCHC RDW Plt Count Seg Neuts % (Manual) Lymphocytes % (Manual) Seg Neutrophils # Man Lymphocytes # (Manual) Monocytes # (Manual) PT INR D-Dimer ABG pH 7.479 H ABG pO2 121.3 H ABG HCO3 ABG O2 Saturation ABG Base Excess ABG Hemoglobin 7.3 L Oxyhemoglobin Sodium Potassium Chloride 112.5 H Carbon Dioxide BUN 33 H Glucose 161 H POC Glucose 135 H Lactic Acid Calcium Phosphorus Magnesium AST 251 H ALT 481 H Alkaline Phosphatase Lactate Dehydrogenase Troponin T C-Reactive Protein NT-Pro-B Natriuret Pep Total Protein 5.0 L Albumin 2.8 L LDL Cholesterol Direct Vitamin B12 Crossmatch 11/09/21 11/09/21 11/09/21 11:33 16:32 23:28 WBC RBC Hgb Hct MCV MCH MCHC RDW Plt Count Seg Neuts % (Manual) Lymphocytes % (Manual) Seg Neutrophils # Man Lymphocytes # (Manual) Monocytes # (Manual) PT INR D-Dimer ABG pH ABG pO2 ABG HCO3 ABG O2 Saturation ABG Base Excess ABG Hemoglobin Oxyhemoglobin Sodium Potassium Chloride Carbon Dioxide BUN Glucose POC Glucose 132 H 133 H 143 H Lactic Acid Calcium Phosphorus Magnesium AST ALT Alkaline Phosphatase Lactate Dehydrogenase Troponin T C-Reactive Protein NT-Pro-B Natriuret Pep Total Protein Albumin LDL Cholesterol Direct Vitamin B12 Crossmatch 11/10/21 11/10/21 11/10/21 04:00 04:00 05:35 WBC 16.0 H RBC 3.61 L Hgb 8.0 L Hct 27.1 L MCV 75 L MCH 22 L MCHC RDW 20.4 H Plt Count Seg Neuts % (Manual) Lymphocytes % (Manual) Seg Neutrophils # Man Lymphocytes # (Manual) Monocytes # (Manual) PT INR D-Dimer ABG pH ABG pO2 ABG HCO3 ABG O2 Saturation ABG Base Excess ABG Hemoglobin Oxyhemoglobin Sodium 149 H Potassium Chloride 114.1 H Carbon Dioxide BUN 31 H Glucose 148 H POC Glucose 132 H Lactic Acid Calcium 8.2 L Phosphorus Magnesium AST ALT Alkaline Phosphatase Lactate Dehydrogenase Troponin T C-Reactive Protein NT-Pro-B Natriuret Pep Total Protein Albumin LDL Cholesterol Direct Vitamin B12 Crossmatch 11/10/21 11/10/21 11/10/21 11:31 14:08 15:35 WBC RBC Hgb Hct MCV MCH MCHC RDW Plt Count Seg Neuts % (Manual) Lymphocytes % (Manual) Seg Neutrophils # Man Lymphocytes # (Manual) Monocytes # (Manual) PT INR D-Dimer ABG pH ABG pO2 126.6 H ABG HCO3 ABG O2 Saturation ABG Base Excess ABG Hemoglobin 7.4 L Oxyhemoglobin Sodium Potassium Chloride Carbon Dioxide BUN Glucose POC Glucose 147 H Lactic Acid Calcium Phosphorus Magnesium AST ALT Alkaline Phosphatase Lactate Dehydrogenase Troponin T C-Reactive Protein NT-Pro-B Natriuret Pep Total Protein Albumin LDL Cholesterol Direct Vitamin B12 1823 H Crossmatch 11/10/21 11/11/21 11/11/21 17:53 00:55 04:28 WBC RBC Hgb Hct MCV MCH MCHC RDW Plt Count Seg Neuts % (Manual) Lymphocytes % (Manual) Seg Neutrophils # Man Lymphocytes # (Manual) Monocytes # (Manual) PT INR D-Dimer ABG pH ABG pO2 ABG HCO3 ABG O2 Saturation ABG Base Excess ABG Hemoglobin Oxyhemoglobin Sodium 149 H Potassium Chloride 112.2 H Carbon Dioxide BUN 34 H Glucose 148 H POC Glucose 140 H 145 H Lactic Acid Calcium 7.9 L Phosphorus Magnesium AST 53 H ALT 203 H Alkaline Phosphatase Lactate Dehydrogenase Troponin T C-Reactive Protein NT-Pro-B Natriuret Pep Total Protein 4.9 L Albumin 2.6 L LDL Cholesterol Direct Vitamin B12 Crossmatch 11/11/21 11/11/21 11/11/21 04:28 04:28 05:28 WBC 20.9 H RBC 3.47 L Hgb 7.5 L Hct 26.0 L MCV 75 L MCH 22 L MCHC 29 L RDW 21.6 H Plt Count 132 L Seg Neuts % (Manual) Lymphocytes % (Manual) Seg Neutrophils # Man Lymphocytes # (Manual) Monocytes # (Manual) PT INR D-Dimer 2655.00 H ABG pH ABG pO2 ABG HCO3 ABG O2 Saturation ABG Base Excess ABG Hemoglobin Oxyhemoglobin Sodium Potassium Chloride Carbon Dioxide BUN Glucose POC Glucose 154 H Lactic Acid Calcium Phosphorus Magnesium AST ALT Alkaline Phosphatase Lactate Dehydrogenase Troponin T C-Reactive Protein NT-Pro-B Natriuret Pep Total Protein Albumin LDL Cholesterol Direct Vitamin B12 Crossmatch 11/11/21 11/11/21 11/12/21 12:38 18:13 00:14 WBC RBC Hgb Hct MCV MCH MCHC RDW Plt Count Seg Neuts % (Manual) Lymphocytes % (Manual) Seg Neutrophils # Man Lymphocytes # (Manual) Monocytes # (Manual) PT INR D-Dimer ABG pH ABG pO2 ABG HCO3 ABG O2 Saturation ABG Base Excess ABG Hemoglobin Oxyhemoglobin Sodium Potassium Chloride Carbon Dioxide BUN Glucose POC Glucose 137 H 108 H 137 H Lactic Acid Calcium Phosphorus Magnesium AST ALT Alkaline Phosphatase Lactate Dehydrogenase Troponin T C-Reactive Protein NT-Pro-B Natriuret Pep Total Protein Albumin LDL Cholesterol Direct Vitamin B12 Crossmatch 11/12/21 11/12/21 11/12/21 05:40 06:24 11:12 WBC RBC Hgb Hct MCV MCH MCHC RDW Plt Count Seg Neuts % (Manual) Lymphocytes % (Manual) Seg Neutrophils # Man Lymphocytes # (Manual) Monocytes # (Manual) PT INR D-Dimer ABG pH 7.586 H ABG pO2 150.6 H ABG HCO3 27.2 H ABG O2 Saturation 99.1 H ABG Base Excess 5.2 H ABG Hemoglobin 7.5 L Oxyhemoglobin Sodium Potassium Chloride Carbon Dioxide BUN Glucose POC Glucose 132 H 140 H Lactic Acid Calcium Phosphorus Magnesium AST ALT Alkaline Phosphatase Lactate Dehydrogenase Troponin T C-Reactive Protein NT-Pro-B Natriuret Pep Total Protein Albumin LDL Cholesterol Direct Vitamin B12 Crossmatch 11/12/21 11/12/21 11/12/21 14:50 14:50 17:13 WBC 19.8 H RBC 3.27 L Hgb 7.1 L Hct 24.5 L MCV 75 L MCH 22 L MCHC 29 L RDW 22.3 H Plt Count Seg Neuts % (Manual) Lymphocytes % (Manual) Seg Neutrophils # Man Lymphocytes # (Manual) Monocytes # (Manual) PT INR D-Dimer ABG pH ABG pO2 ABG HCO3 ABG O2 Saturation ABG Base Excess ABG Hemoglobin Oxyhemoglobin Sodium 150 H Potassium 3.3 L Chloride 112.0 H Carbon Dioxide BUN 40 H Glucose 151 H POC Glucose 121 H Lactic Acid Calcium 7.4 L Phosphorus 1.70 L Magnesium 1.40 L AST ALT Alkaline Phosphatase Lactate Dehydrogenase Troponin T C-Reactive Protein NT-Pro-B Natriuret Pep Total Protein Albumin LDL Cholesterol Direct Vitamin B12 Crossmatch 11/12/21 11/13/21 11/13/21 23:19 05:34 06:30 WBC RBC Hgb Hct MCV MCH MCHC RDW Plt Count Seg Neuts % (Manual) Lymphocytes % (Manual) Seg Neutrophils # Man Lymphocytes # (Manual) Monocytes # (Manual) PT INR D-Dimer ABG pH ABG pO2 ABG HCO3 ABG O2 Saturation ABG Base Excess ABG Hemoglobin Oxyhemoglobin Sodium 149 H Potassium Chloride 60.0 L Carbon Dioxide BUN 40 H Glucose 146 H POC Glucose 113 H 132 H Lactic Acid Calcium 7.3 L Phosphorus Magnesium 2.40 H AST ALT 72 H Alkaline Phosphatase Lactate Dehydrogenase Troponin T C-Reactive Protein NT-Pro-B Natriuret Pep Total Protein 5.2 L Albumin 2.2 L LDL Cholesterol Direct Vitamin B12 Crossmatch 11/13/21 11/13/21 11/13/21 06:30 08:30 11:19 WBC 21.2 H RBC 3.12 L Hgb 6.8 L Hct 23.2 L MCV 74 L MCH 22 L MCHC 29 L RDW 22.2 H Plt Count 135 L Seg Neuts % (Manual) Lymphocytes % (Manual) Seg Neutrophils # Man Lymphocytes # (Manual) Monocytes # (Manual) PT INR D-Dimer ABG pH ABG pO2 ABG HCO3 ABG O2 Saturation ABG Base Excess ABG Hemoglobin Oxyhemoglobin Sodium Potassium Chloride Carbon Dioxide BUN Glucose POC Glucose 136 H Lactic Acid Calcium Phosphorus Magnesium AST ALT Alkaline Phosphatase Lactate Dehydrogenase Troponin T C-Reactive Protein NT-Pro-B Natriuret Pep Total Protein Albumin LDL Cholesterol Direct Vitamin B12 Crossmatch See Detail 11/13/21 11/14/21 11/14/21 18:21 00:01 04:46 WBC 20.0 H RBC 3.41 L Hgb 7.9 L Hct 26.8 L MCV MCH 23 L MCHC 29 L RDW 24.0 H Plt Count Seg Neuts % (Manual) Lymphocytes % (Manual) Seg Neutrophils # Man Lymphocytes # (Manual) Monocytes # (Manual) PT INR D-Dimer ABG pH ABG pO2 ABG HCO3 ABG O2 Saturation ABG Base Excess ABG Hemoglobin Oxyhemoglobin Sodium Potassium Chloride Carbon Dioxide BUN Glucose POC Glucose 149 H 141 H Lactic Acid Calcium Phosphorus Magnesium AST ALT Alkaline Phosphatase Lactate Dehydrogenase Troponin T C-Reactive Protein NT-Pro-B Natriuret Pep Total Protein Albumin LDL Cholesterol Direct Vitamin B12 Crossmatch 11/14/21 11/14/21 11/14/21 04:46 05:10 11:10 WBC RBC Hgb Hct MCV MCH MCHC RDW Plt Count Seg Neuts % (Manual) Lymphocytes % (Manual) Seg Neutrophils # Man Lymphocytes # (Manual) Monocytes # (Manual) PT INR D-Dimer ABG pH ABG pO2 ABG HCO3 ABG O2 Saturation ABG Base Excess ABG Hemoglobin Oxyhemoglobin Sodium 148 H Potassium Chloride 113.1 H Carbon Dioxide BUN 43 H Glucose 140 H POC Glucose 132 H 133 H Lactic Acid Calcium 7.5 L Phosphorus Magnesium AST ALT Alkaline Phosphatase Lactate Dehydrogenase Troponin T C-Reactive Protein NT-Pro-B Natriuret Pep Total Protein Albumin LDL Cholesterol Direct Vitamin B12 Crossmatch 11/14/21 11/14/21 11/14/21 16:14 17:48 23:23 WBC RBC Hgb Hct MCV MCH MCHC RDW Plt Count Seg Neuts % (Manual) Lymphocytes % (Manual) Seg Neutrophils # Man Lymphocytes # (Manual) Monocytes # (Manual) PT INR D-Dimer ABG pH ABG pO2 ABG HCO3 28.0 H ABG O2 Saturation ABG Base Excess 3.1 H ABG Hemoglobin 5.8 L Oxyhemoglobin 94.8 L Sodium Potassium Chloride Carbon Dioxide BUN Glucose POC Glucose 130 H 136 H Lactic Acid Calcium Phosphorus Magnesium AST ALT Alkaline Phosphatase Lactate Dehydrogenase Troponin T C-Reactive Protein NT-Pro-B Natriuret Pep Total Protein Albumin LDL Cholesterol Direct Vitamin B12 Crossmatch 11/15/21 11/15/21 11/15/21 05:20 05:50 05:50 WBC 19.9 H RBC 3.50 L Hgb 8.2 L Hct 27.9 L MCV MCH 23 L MCHC 29 L RDW 24.9 H Plt Count Seg Neuts % (Manual) Lymphocytes % (Manual) Seg Neutrophils # Man Lymphocytes # (Manual) Monocytes # (Manual) PT INR D-Dimer ABG pH ABG pO2 ABG HCO3 ABG O2 Saturation ABG Base Excess ABG Hemoglobin Oxyhemoglobin Sodium 149 H Potassium Chloride 112.0 H Carbon Dioxide BUN 48 H Glucose 152 H POC Glucose 137 H Lactic Acid Calcium 7.9 L Phosphorus Magnesium AST ALT Alkaline Phosphatase Lactate Dehydrogenase Troponin T C-Reactive Protein NT-Pro-B Natriuret Pep Total Protein Albumin LDL Cholesterol Direct Vitamin B12 Crossmatch 11/15/21 12:12 WBC RBC Hgb Hct MCV MCH MCHC RDW Plt Count Seg Neuts % (Manual) Lymphocytes % (Manual) Seg Neutrophils # Man Lymphocytes # (Manual) Monocytes # (Manual) PT INR D-Dimer ABG pH ABG pO2 ABG HCO3 ABG O2 Saturation ABG Base Excess ABG Hemoglobin Oxyhemoglobin Sodium Potassium Chloride Carbon Dioxide BUN Glucose POC Glucose 114 H Lactic Acid Calcium Phosphorus Magnesium AST ALT Alkaline Phosphatase Lactate Dehydrogenase Troponin T C-Reactive Protein NT-Pro-B Natriuret Pep Total Protein Albumin LDL Cholesterol Direct Vitamin B12 Crossmatch Chest x-ray: image reviewed (no recurrent PTX) Allied health notes reviewed: nursing
[2021-11-15] MEDS: HYDROcodone/ACETAMINOPHEN 10-325MG TAB PO SCH (22:41)
[2021-11-16] MEDS: INSULIN LISPRO 100 UNIT/ML SUB-Q SCH ×4 (00:24→18:23)
[2021-11-16] MEDS: CEFEPIME/NS 1 GM/100 ML 1 GM/100 ML BAG IV SCH ×3 (00:34→16:30)
--- NOTE | 2021-11-16 05:50 | XRay Report ---
CHEST 1 VIEW 11/16/2021 4:40 AM INDICATION / CLINICAL INFORMATION: Pneumothorax. COMPARISON: Yesterday. FINDINGS: SUPPORT DEVICES: Unchanged. HEART / MEDIASTINUM: Unchanged. LUNGS / PLEURA: Bilateral pleuroparenchymal disease, left greater than right, has shown significant i mprovement. Disease persists, especially in the left mid to lower hemithorax. No pneumothorax. ADDITIONAL FINDINGS: No significant additional findings. IMPRESSION: Improving bilateral pleuroparenchymal disease, left greater than right. Signer Name: Deven Nguyễn MD Signed: 11/16/2021 5:46 AM Workstation Name: [id number]
[2021-11-16] MEDS: FUROSEMIDE 20 MG/2 ML INJ IV SCH ×2 (06:02→18:22)
[2021-11-16] MEDS: LEVOTHYROXINE 125 MCG TAB PO SCH (06:02)
[2021-11-16] MEDS: HYDROcodone/ACETAMINOPHEN 10-325MG TAB PO SCH ×2 (08:37→13:38)
[2021-11-16 10:28] LABS: Hematocrit 20.2 % (30.3-42.9); Mean Corpuscular HGB Conc 30 % (30-34); Mean Corpuscular Volume 79 fl (79-97); Platelet Count 204 K/mm3 (140-440); Red Blood Count 2.57 M/mm3 (3.65-5.03)
[2021-11-16 10:33] LABS: Calcium 8.1 mg/dL (8.4-10.2)
[2021-11-16 10:34] LABS: Red Cell Distribution Width 26.3 % (13.2-15.2)
[2021-11-16] MEDS: SENNOSIDES ORAL LIQD 8.8 MG/5 ML ORAL LIQD PO SCH (11:00)
[2021-11-16] MEDS: ENOXAPARIN 60 MG/0.6 ML INJ SUB-Q SCH (11:00)
[2021-11-16] MEDS: FAMOTIDINE 10 MG TAB FEEDTUBE SCH (11:00)
[2021-11-16] MEDS: DOCUSATE SODIUM 100 MG/10 ML ORAL LIQD PO SCH (11:00)
[2021-11-16] MEDS: POLYETHYLENE GLYCOL 3350 17 GM POWDER PO SCH (11:02)
[2021-11-16] MEDS ORDERED: SODIUM CHLORIDE 0.9% 500 ML 500 ML IV ONE ×2 (12:16→19:44)
[2021-11-16] MEDS: FREE WATER PO SCH ×2 (13:41→18:23)
--- NOTE | 2021-11-16 13:53 | Progress Note ---
<JASBIR SEVERINO - Last Filed: 11/16/21 13:59> Assessment and Plan Assessment and plan: This is a 81-year-old female with known history of diabetes mellitus, hypertension, PPM, and arthritis admitted for sepsis and acute hypoxia respiratory failure 2/2 bilateral pneumonia requiring intubation and ventilatory support Assessment and Plan Septic shock, POA, bilateral pneumonia, bacteremia -Infectious disease consulted, appreciate recommendations -COVID-19 PCR negative -Presented with fevers, leukocytosis and hypotension -11/04 blood cultures positive with a group B strep bacteremia however repeat blood cultures on the with no growth to date -Echo showed no evidence of vegetation -ABX therapy with ceftriaxone and clindamycin -Completed clindamycin, 2 weeks of ceftriaxone planned (11/04) -Given persistent leukocytosis and fever, escalated to cefepime by ID -Monitor WBC and fever curve -Recultured on 11/11 -Follow-up culture -Bedside bronchoscopy for mucous plug on CXR 11/11 Acute hypoxic respiratory failure secondary to bilateral pneumonia, bilateral pleural effusion. Right pneomothorax -COVID-19 PCR negative -Intubated on 11/06 with 6.00 ETT at 18 at the lip -A.m. vent settings: Assist-control rate 16, tidal volume 350, PEEP 6, FiO2 40% -See RT notes for titration -11/11: Changed over bougie to 7.50 ETT at 22 at the lip -Current vent settings AC, rate 25, tidal and 400, FiO2 100%, PEEP 6 -S/p bedside bronchoscopy on 11/11 -Post bronc noted to have transient hypotension-> given LR bolus, Levophed drip -Complicated by pneumothorax -S/p chest tube placement for right pneumothorax -Chest tube to wall suction -[address] drainage 0 ml -removed overnight on 11/15 by patient -cxr shows no pneumo -ABG/CXR per CCM -VAP bundle -Right chest wall ultrasound shows pleural effusion -SPO2 monitoring -Mucomyst every 8 -Albuterol every 8 Acute DVT in the right external iliac vein, common femoral vein, superior aspect of femoral vein -Evidenced on bilateral upper lower extremity ultrasound -Therapeutic Lovenox Hypernatremia -increase in FWF -Trend sodium Hypotension, Heart failure with reduced EF, h/o chronic heart block s/p PPM -s/p vasopressor support with levophed -map goal >65 -11/04 echocardiogram shows EF 30 to 35% -Cardiology consulted, appreciate recommendations -Continue beta-charleen -Not on aspirin due to allergy -Statins on hold due to elevated LFTs -Blood pressure monitor per protocol Acute encephalopathy -Neurology consulted, appreciate recommendations -CT brain showed no acute events -EEG interpreted as abnormal record due to diffuse slowing and therefore5 height noted throughout the recording, suggestive of encephalopathic process and/or drug effect, possibilities of postictal state cannot be totally excluded. Clinical correlation is in order -MRI brain and possible-> patient has metal in her body -Repeat CT head with no acute findings -Reorientation as needed -Ammonia 42, B12 1823, TSH 1.5 Acute microcytic anemia -S/p 1 unit PRBC -Trend CBC -Transfuse for hemoglobin less than 7 -hbg 6 today -1 unit prbc -noted to have increase in BUN -gastric occult ordered Transaminitis -Nutrition consult for tube feeding -BR: Senokot -last BM 11/15 -24-hour -578 ml -Trend LFTs h/o HTN/CAD s/p PCI (2004) -Statin on hold due to transaminitis -Hold home antihypertensive and resume as tolerated -Blood pressure monitoring per protocol h/o DM -SSI -Accu-Cheks every 6 -Avoid hypoglycemia h/o hypothyroidism -Continue home Synthroid DVT/GI prophylaxis -Therapeutic Lovenox, PPI The high probability of a clinically significant, sudden or life threatening deterioration of the [multi] system(s) required my full and direct attention, intervention and personal management. The aggregate critical care time was [60] minutes. This time is in addition to time spent performing reported procedures but includes the following: [x] Data Review and interpretation [x] Patient assessment and monitoring of vital signs [x] Documentation [x] Medication orders and management Disposition Plan: icu Total Time Spent with Patient (Minutes): 60 History Interval history: This is an 82-year-old female with DM, HTN , PPM and arthritis who presented to the emergency department on 11/04 for shortness of breath ongoing for the past 3 days, cough and according to family a fever of 102.2. Upon arrival of EMS patient was found to be tachypneic and hypoxic with SPO2 of 76% on room air which later improved to 88% on nonrebreather. Work-up in the emergency department included a CXR which showed bilateral interstitial pulmonary edema with bilateral pleural effusions and bibasilar opacities, leukocytosis and anemia with a hemoglobin of 6.1. Patient was admitted to the hospitalist service with acute anemia, acute hypoxic respiratory failure, bilateral pneumonia and COVID-19 PUI with consults to pulmonology, infectious disease and later cardiology. Patient was eventually intubated in the emergency department on 11/06. Hospital Course to date: 11/04/2021: Empiric therapy with iv levaquin/vancomycin. COVID PCR pending. Will consult ID. PCCM consulted, will follow recs. Hypotensive this AM, ordered bolus and fluids at 150 cc/hr. May require pressor support if bp does not improve. 11/05/2021: GBS on bcx +, currently on rocephin IV. Currently on bipap due to respiratory distress overnight. Worsening BL opacities on CXR. May be volume overload vs pneumonia. Unfortunately bp too low for lasix at this point. WIll continue levophed and bipap. Once able to tolerate, may do trial of albumin/lasix. Call attempt made to alok Healy, no response. Will try again tomorrow to update. 11/06/2021: Decompensated overnight requiring intubation. CXR shows worsening interstitial infiltrates. Currenlty on dopamine, levophed, vasopressin. PICC line ordered. Advised RN to place gamble for I/O monitoring. Would benefit from diuresis but very volume overloaded. Prognosis guarded 11/08: Off sedation this am, remains unresponsive only grimace to pain. Hold all sedatives agents for now, patient is off pressors this am. Hypernatremia from today's lab- D5W X1bag, and low K repleted, repeat lab in the am. Severe constipation also noted from KUB, BR added. 11/09: Sudden SPO2 drop in the 60s this am. Patient was manually bagged and deep suctioned. Patient is currently stable on the vent, repeat CXR with no significant change. D/w CCM Mucomyst and brochodilator added. Patient mentation is unchanged, continue to hold off on sedative agents. Neurology consulted. 11/10: Acute DVT noted on bilateral lower extremity Doppler ultrasound therefore she was started on Lovenox treatment dose. Failed SBT. Hypernatremia and hyperchloremia noted, free water flush adjusted. 11/11: Patient noted to be febrile with increasing of the cytosis, UA/BC sent and CXR ordered. ID escalated antibiotics to cefepime. CXR demonstrated mucous pl ug, bedside bronchoscopy was performed and O ETT was changed over bougie from 6 cm to 7.5. Patient was noted to have a pneumothorax postprocedure and chest tube was placed. Family updated by [facility]. Free water flush increased and will add Jaswant supplementation. 11/12: Patient not noted to follow commands, hypernatremia worsen/persist, increasing free water flush, potassium and magnesium and phosphorus repleted. Hemoglobin noted to be 7.1/24.5 from 7.03/12 yesterday. We will continue to trend and monitor. Vent changes per [facility]. Repeat CXR showed no residual pneumothorax. Consider waterseal tomorrow. Given persistent leukocytosis antibiotics escalated to cefepime per ID. 11/13: Remains on cefepime and vancomycin, vent changes per [facility]. Anemia noted and given 1 unit PRBC. And beta-charleen held in setting of Levophed drip infusing. Remains on fentanyl drip. 11/14: Patient put on CPAP trial by [facility], will continue chest tube until after extubation. Will rest on assist control. CT brain was cancelled by cloth grader supervisor and reordered. 11/15: Patient removed chest tube overnight. Will obtain cxr. remains on low dose levo. CTH completed with no acute findings. RT to place on CPAP. 11/16: Hypernatremia/hyperchloremia noted on the increase of day water flushes. Anemia noted and ordered PRBC. asked RT to place on cpap but not done yet Hospitalist Physical - Physical exam Narrative exam: General appearance: Present: no acute distress, other (On the vent) - EENT Eyes: Present: PERRL, EOM intact ENT: poor dentition - Neck Neck: Present: normal ROM - Respiratory Respiratory effort: normal Respiratory: bilateral: diminished - Cardiovascular Rhythm: regular Heart Sounds: Present: S1 & S2. Absent: systolic murmur, diastolic murmur - Extremities Extremities: no ischemia, pulses intact, pulses symmetrical, normal temperature, normal color Peripheral Pulses: within normal limits - Abdominal General gastrointestinal: soft, non-tender, non-distended, normal bowel sounds - Integumentary Integumentary: Present: warm, dry - Psychiatric Psychiatric: cooperative - Neurologic Neurologic: CNII-XII intact - Allied Health Allied health notes reviewed: nursing, RT, social work - Constitutional Vitals: Temp Pulse Resp BP Pulse Ox 98.5 F 109 H 25 H 105/47 100 11/16/21 08:00 11/16/21 12:30 11/16/21 13:38 11/16/21 12:30 11/16/21 12:30 General appearance: Present: no acute distress, other (On the vent) HEART Score - HEART Score Troponin: Troponin T 0.033 ng/mL (0.00-0.029) H 11/05/21 06:11 Results - Labs CBC & Chem 7: 11/16/21 10:00 11/16/21 10:00 Labs: Laboratory Last Values WBC 21.7 K/mm3 (4.5-11.0) H 11/16/21 10:00 RBC 2.57 M/mm3 (3.65-5.03) L 11/16/21 10:00 Hgb 6.0 gm/dl (10.1-14.3) L 11/16/21 10:00 Hct 20.2 % (30.3-42.9) L D 11/16/21 10:00 MCV 79 fl (79-97) 11/16/21 10:00 MCH 24 pg (28-32) L 11/16/21 10:00 MCHC 30 % (30-34) 11/16/21 10:00 RDW 26.3 % (13.2-15.2) H 11/16/21 10:00 Plt Count 204 K/mm3 (140-440) 11/16/21 10:00 Add Manual Diff Complete 11/06/21 15:50 Total Counted 100 11/06/21 15:50 Seg Neutrophils % Commissary Agent 11/06/21 15:50 Seg Neuts % (Manual) 92.0 % (40.0-70.0) H 11/06/21 15:50 Band Neutrophils % 0 % 11/06/21 15:50 Lymphocytes % (Manual) 5.0 % (13.4-35.0) L 11/06/21 15:50 Reactive Lymphs % (Man) 0 % 11/06/21 15:50 Monocytes % (Manual) 3.0 % (0.0-7.3) 11/06/21 15:50 Eosinophils % (Manual) 0 % (0.0-4.3) 11/06/21 15:50 Basophils % (Manual) 0 % (0.0-1.8) 11/06/21 15:50 Metamyelocytes % 0 % 11/06/21 15:50 Myelocytes % 0 % 11/06/21 15:50 Promyelocytes % 0 % 11/06/21 15:50 Blast Cells % 0 % 11/06/21 15:50 Nucleated RBC % Not Reportable 11/06/21 15:50 Seg Neutrophils # Man 23.5 K/mm3 (1.8-7.7) H 11/06/21 15:50 Band Neutrophils # 0.0 K/mm3 11/06/21 15:50 Lymphocytes # (Manual) 1.3 K/mm3 (1.2-5.4) 11/06/21 15:50 Abs React Lymphs (Man) 0.0 K/mm3 11/06/21 15:50 Monocytes # (Manual) 0.8 K/mm3 (0.0-0.8) 11/06/21 15:50 Eosinophils # (Manual) 0.0 K/mm3 (0.0-0.4) 11/06/21 15:50 Basophils # (Manual) 0.0 K/mm3 (0.0-0.1) 11/06/21 15:50 Metamyelocytes # 0.0 K/mm3 11/06/21 15:50 Myelocytes # 0.0 K/mm3 11/06/21 15:50 Promyelocytes # 0.0 K/mm3 11/06/21 15:50 Blast Cells # 0.0 K/mm3 11/06/21 15:50 WBC Morphology Not Reportable 11/06/21 15:50 Hypersegmented Neuts Not Reportable 11/06/21 15:50 Hyposegmented Neuts Not Reportable 11/06/21 15:50 Hypogranular Neuts Not Reportable 11/06/21 15:50 Smudge Cells Not Reportable 11/06/21 15:50 Toxic Granulation Not Reportable 11/06/21 15:50 Toxic Vacuolation Not Reportable 11/06/21 15:50 Dohle Bodies Not Reportable 11/06/21 15:50 Pelger-Huet Anomaly Not Reportable 11/06/21 15:50 Irina Rods Not Reportable 11/06/21 15:50 Platelet Estimate Consistent w auto 11/06/21 15:50 Clumped Platelets Not Reportable 11/06/21 15:50 Plt Clumps, EDTA Not Reportable 11/06/21 15:50 Large Platelets Not Reportable 11/06/21 15:50 Giant Platelets Not Reportable 11/06/21 15:50 Platelet Satelliting Not Reportable 11/06/21 15:50 Plt Morphology Comment Not Reportable 11/06/21 15:50 RBC Morphology Not Reportable 11/06/21 15:50 Dimorphic RBCs Not Reportable 11/06/21 15:50 Polychromasia Not Reportable 11/06/21 15:50 Hypochromasia 2+ 11/06/21 15:50 Poikilocytosis Not Reportable 11/06/21 15:50 Anisocytosis 1+ 11/06/21 15:50 Microcytosis Not Reportable 11/06/21 15:50 Macrocytosis Not Reportable 11/06/21 15:50 Spherocytes Not Reportable 11/06/21 15:50 Pappenheimer Bodies Not Reportable 11/06/21 15:50 Sickle Cells Not Reportable 11/06/21 15:50 Target Cells Not Reportable 11/06/21 15:50 Tear Drop Cells Not Reportable 11/06/21 15:50 Ovalocytes Not Reportable 11/06/21 15:50 Helmet Cells Not Reportable 11/06/21 15:50 [place] Bodies Not Reportable 11/06/21 15:50 [place] Rings Not Reportable 11/06/21 15:50 [place] Cells Not Reportable 11/06/21 15:50 Bite Cells Not Reportable 11/06/21 15:50 Crenated Cell Not Reportable 11/06/21 15:50 Elliptocytes Not Reportable 11/06/21 15:50 Acanthocytes (Spur) Not Reportable 11/06/21 15:50 Rouleaux Not Reportable 11/06/21 15:50 Hemoglobin C Crystals Not Reportable 11/06/21 15:50 Schistocytes Not Reportable 11/06/21 15:50 Malaria parasites Not Reportable 11/06/21 15:50 Godfrey Bodies Not Reportable 11/06/21 15:50 Hem Pathologist Commnt No 11/06/21 15:50 PT 18.6 Sec. (12.2-14.9) H 11/03/21 22:32 INR 1.40 (0.87-1.13) H 11/03/21 22:32 APTT 28.9 Sec. (24.2-36.6) 11/03/21 22:32 D-Dimer 2655.00 ng/mlDDU (0-234) H 11/11/21 04:28 ABG pH 7.407 pH Units (7.350-7.450) 11/14/21 16:14 ABG pCO2 45.6 mm Hg 11/14/21 16:14 ABG pO2 80.6 mm Hg (80.0-90.0) 11/14/21 16:14 ABG HCO3 28.0 mmol/L (20.0-26.0) H 11/14/21 16:14 ABG O2 Saturation 97.0 % (95.0-99.0) 11/14/21 16:14 ABG O2 Content 7.8 (0.0-44) 11/14/21 16:14 ABG Base Excess 3.1 mmol/L (-2.0-3.0) H 11/14/21 16:14 ABG Hemoglobin 5.8 gm/dl (12.0-16.0) L 11/14/21 16:14 ABG Carboxyhemoglobin 2.0 % (0.0-5.0) 11/14/21 16:14 ABG Methemoglobin 0.3 % (0.0-1.5) 11/14/21 16:14 Oxyhemoglobin 94.8 % (95.0-99.0) L 11/14/21 16:14 FiO2 35 % 11/14/21 16:14 Sodium 153 mmol/L (137-145) H 11/16/21 10:00 Potassium 3.8 mmol/L (3.6-5.0) 11/16/21 10:00 Chloride 114.9 mmol/L (98-107) H 11/16/21 10:00 Carbon Dioxide 26 mmol/L (22-30) 11/16/21 10:00 Anion Gap 16 mmol/L 11/16/21 10:00 BUN 74 mg/dL (7-17) H 11/16/21 10:00 Creatinine 0.9 mg/dL (0.6-1.2) 11/16/21 10:00 Estimated GFR 60 ml/min 11/16/21 10:00 BUN/Creatinine Ratio 82 % 11/16/21 10:00 Glucose 155 mg/dL (65-100) H 11/16/21 10:00 POC Glucose 131 mg/dL (70-105) H 11/16/21 11:34 Lactic Acid 3.70 mmol/L (0.7-2.0) H* 11/03/21 22:32 Calcium 8.1 mg/dL (8.4-10.2) L 11/16/21 10:00 Phosphorus 4.40 mg/dL (2.5-4.5) D 11/13/21 06:30 Magnesium 2.40 mg/dL (1.7-2.3) H 11/13/21 06:30 Ferritin 52.6 ng/mL (10.0-200.0) 11/05/21 06:11 Total Bilirubin < 0.20 mg/dL (0.1-1.2) 11/13/21 06:30 Direct Bilirubin < 0.2 mg/dL (0-0.2) 11/11/21 04:28 Indirect Bilirubin 0.1 mg/dL 11/11/21 04:28 AST 35 units/L (5-40) 11/13/21 06:30 ALT 72 units/L (7-56) H 11/13/21 06:30 Alkaline Phosphatase 100 units/L (35-129) 11/13/21 06:30 Ammonia 42.0 umol/L (25-60) 11/10/21 14:08 Lactate Dehydrogenase 187 units/L (91-180) H 11/05/21 06:11 Troponin T 0.033 ng/mL (0.00-0.029) H 11/05/21 06:11 C-Reactive Protein 22.20 mg/dL (0.00-1.30) H 11/05/21 06:11 NT-Pro-B Natriuret Pep 7895 pg/mL (0-900) H 11/03/21 22:32 Total Protein 5.2 g/dL (6.3-8.2) L 11/13/21 06:30 Albumin 2.2 g/dL (3.9-5) L 11/13/21 06:30 Albumin/Globulin Ratio 0.7 % 11/13/21 06:30 Triglycerides 66 mg/dL (2-149) 11/03/21 22:32 Cholesterol 80 mg/dL (50-199) 11/03/21 22:32 LDL Cholesterol Direct 34 mg/dL (50-130) L 11/03/21 22:32 HDL Cholesterol 42 mg/dL (40-59) 11/03/21 22:32 Cholesterol/HDL Ratio 1.90 % 11/03/21 22:32 Vitamin B12 1823 pg/mL (211-911) H 11/10/21 14:08 TSH 1.510 mlU/mL (0.270-4.200) 11/10/21 14:08 Urine Color Yellow (Yellow) 11/11/21 09:00 Urine Turbidity Slightly-cloudy (Clear) 11/11/21 09:00 Urine pH 5.0 (5.0-7.0) 11/11/21 09:00 Ur Specific [place] 1.009 (1.003-1.030) 11/11/21 09:00 Urine Protein <15 mg/dl mg/dL (Negative) 11/11/21 09:00 Urine Glucose (UA) Neg mg/dL (Negative) 11/11/21 09:00 Urine Ketones Neg mg/dL (Negative) 11/11/21 09:00 Urine Blood Mod (Negative) 11/11/21 09:00 Urine Nitrite Neg (Negative) 11/11/21 09:00 Urine Bilirubin Neg (Negative) 11/11/21 09:00 Urine Urobilinogen < 2.0 mg/dL (<2.0) 11/11/21 09:00 Ur Leukocyte Esterase Neg (Negative) 11/11/21 09:00 Urine WBC (Auto) < 1.0 /HPF (0.0-6.0) 11/11/21 09:00 Urine RBC (Auto) < 1.0 /HPF (0.0-6.0) 11/11/21 09:00 Coronavirus (PCR) Negative (Negative) 11/10/21 08:30 Blood Type O POSITIVE 11/13/21 08:30 Antibody Screen Negative 11/13/21 08:30 Crossmatch See Detail 11/13/21 08:30 Microbiology: Microbiology 11/11/21 14:22 Peripheral/Venous Blood Culture - Preliminary NO GROWTH AFTER 4 DAYS 11/11/21 14:36 Peripheral/Venous Blood Culture - Preliminary NO GROWTH AFTER 4 DAYS Gamble/IV: Voiding Method Indwelling Catheter Active Medications - Current Medications Current Medications: Generic Name Dose Route Start Last Admin Trade Name Freq PRN Reason Stop Dose Admin Acetaminophen 650 mg 11/04/21 02:03 11/12/21 05:35 Acetaminophen 325 Mg Tab PO 650 mg Q6H PRN Administration Pain MILD(1-3)/Fever >100.5/RODRIGUEZ Hydrocodone Bitart/Acetaminophen 1 each 11/15/21 20:00 11/16/21 13:38 Hydrocodone/Acetaminophen 10-325mg Tab PO 11/20/21 19:59 1 each TID YOSSI Administration Lipase/Protease/Amylase 1 each 11/08/21 11:09 Lipase 10,500/Protease 25,000/Amylase 43,750 (Units) Dr Lema FEEDTUBE PRN PRN For Clogged Feeding Tube Dextrose 0 ml 11/10/21 10:52 Dextrose 10% *Hypoglycemia IV PRN PRN Hypoglycemia Docusate Sodium 100 mg 11/08/21 12:00 11/16/21 11:00 Docusate Sodium 100 Mg/10 Ml Oral Liqd PO 100 mg BID YOSSI Administration Enoxaparin Sodium 60 mg 11/10/21 22:00 11/16/21 11:00 Enoxaparin 60 Mg/0.6 Ml Inj SUB-Q 60 mg Q12HR YOSSI Administration Protocol Famotidine 10 mg 11/11/21 22:00 11/16/21 11:00 Famotidine 10 Mg Tab FEEDTUBE 10 mg BID YOSSI Administration Fentanyl 50 mcg 11/11/21 16:22 11/15/21 10:42 Fentanyl 100 Mcg/2 Ml Inj IV 50 mcg Q10MIN PRN Administration ANALGESIA Furosemide 20 mg 11/08/21 18:00 11/16/21 06:02 Furosemide 20 Mg/2 Ml Inj IV 20 mg 0600,1800 YOSSI Administration Hydrophilic Ointment 1 applic 11/06/21 04:02 Lip Therapy Vaseline TP Q2HR PRN Dry Lips NORepinephrine/NS 8 MG-250 ML 8 mg in 250 mls @ 3.75 mls/hr 11/05/21 09:00 11/14/21 12:23 Norepinephrine/Ns 8 Mg-250 Ml (Double Conc) IV 2 mcg/min TITRATE YOSSI 3.75 mls/hr Titration Protocol 2 MCG/MIN Vasopressin 20 unit/ Sodium 101 mls @ 9.09 mls/hr 11/05/21 23:00 11/06/21 01:00 Chloride IV 0.03 units/min TITR YOSSI 9.09 mls/hr Administration Protocol 0.03 UNITS/MIN Fentanyl Citrate 2,000 mcg in 100 mls @ 3.12 mls/hr 11/11/21 17:00 11/15/21 12:00 Fentanyl Drip Premix IV Infused TITR YOSSI Titration Protocol 1 MCG/KG/HR Cefepime HCl 1 gm in 100 mls @ 200 mls/hr 11/12/21 16:00 11/16/21 08:37 Cefepime/Ns 1 Gm/100 Ml IV 200 mls/hr Q8H [facility] Administration Protocol Insulin Human Lispro 0 unit 11/06/21 12:00 11/16/21 12:50 Insulin Lispro 100 Unit/Ml SUB-Q Not Given Q6HR [facility] Protocol Levothyroxine Sodium 125 mcg 11/05/21 07:00 11/16/21 06:02 Levothyroxine 125 Mcg Tab PO 125 mcg DAILY@0600 [facility] Administration Magnesium Hydroxide 30 ml 11/04/21 02:03 Magnesium Hydroxide (Mom) Oral Liqd Udc PO Q4H PRN Constipation Multi-Ingred Cream/Lotion/Oil/Oint 1 applic 11/06/21 04:02 Mineral Oil/Petrolatum, White Ophth Oint 3.5 Gm OU Q4HR PRN Dry Eye(s) Ondansetron HCl 4 mg 11/04/21 02:03 11/05/21 15:48 Ondansetron 4 Mg/2 Ml Inj IV 4 mg Q8H PRN Administration Nausea And Vomiting Polyethylene Glycol 17 gm 11/08/21 12:00 11/16/21 11:02 Polyethylene Glycol 3350 17 Gm Powder PO 17 gm QDAY YOSSI Administration Senna 17.6 mg 11/08/21 22:00 11/16/21 11:00 Sennosides Oral Liqd 8.8 Mg/5 Ml Oral Liqd PO 17.6 mg Q12HR YOSSI Administration Simple Syrup 15 ml 11/08/21 11:09 Simple Syrup 15 Ml FEEDTUBE PRN PRN Hypoglycemia Simple Syrup 30 ml 11/08/21 11:09 Simple Syrup 15 Ml FEEDTUBE PRN PRN Hypoglycemia Sodium Bicarbonate 325 mg 11/08/21 11:09 Sodium Bicarbonate 325 Mg Tab FEEDTUBE PRN PRN For Clogged Feeding Tube Sodium Chloride 10 ml 11/04/21 10:00 11/16/21 11:02 Sodium Chloride 0.9% 10 Ml Flush Syringe IV 10 ml BID YOSSI Administration Sodium Chloride 10 ml 11/04/21 02:03 Sodium Chloride 0.9% 10 Ml Flush Syringe IV PRN PRN LINE FLUSH Sodium Chloride 10 ml 11/10/21 09:57 11/12/21 17:08 Sodium Chloride 0.9% 50 Ml Ivpb IV 10 ml PRN PRN Administration FLUSH Nutrition/Malnutrition Assess - Dietary Evaluation Nutrition/Malnutrition Findings: Nutrition Notes Start: 11/04/21 17:16 Freq: Status: Active Protocol: Document 11/10/21 16:03 ISABELL (Rec: 11/10/21 16:20 ISABELL [id number]) Nutrition Notes Current Diagnosis Diabetes,Sepsis,Hypertension, Respiratory Failure Other Pertinent Diagnosis Severe Sepsis/Bacteremia, Bilateral Pneumonia. Current Diet TF-Vital AF @ 60 ml/hr (since L 11/08). Height 5 ft Weight 58.967 kg [place] Body Weight (kg) 45.45 BMI 25.4 Weight change and time frame No body weight change reported . Weight Status Appropriate Subjective/Other Information RD consult for TF tolerance. TF well tolerated, according to RN notes. Percent of energy/protein needs met: Prescribed Vital AF @ 60 ml/hr provides for energy/protein needs (1,710 Kcal/107 g) during LOS, 100% Kcal; 100% AA . #1 Nutrition Diagnosis Inadequate oral intake Diagnosis Progress(for reassessment Continues documentation) Is patient on ventilator? Yes Is Patient Ambulatory and/or Out of Bed No REE-([facility]-confined to bed) 1166.664 Kcal/Kg value to use for calculation 29 Approximate Energy Requirements Using 1710 kcal/Kg Calculation Used for Recommendations Kcal/kg Additional Notes Protein: 70-118 g/day (1.2-2g/ kg BW/day) Fluids: 1 ml/kcal, or as per MD. Nutrition Intervention Nutrition Support: Continue Vital AF @ 60 ml/hr. Flush: 100 ml water Q 4 hr, or as per MD. Kcal 1,710 Protein (gm) 107 Carbohydrates (gm) 158 Fat (gm) 77 Fluid (mL) 1,156 Fiber (gm) 7 % RDI: 100% Kcal; 100% AA. Goal #1 Provide at least 75% of energy /protein needs through Enteral Feeding during LOS. Goal #2 Maintain body weight within +/ -3% of admission body weight during LOS. Follow-Up By: 11/17/21 Additional Comments Continue monitoring TF tolerance and BM. <FREDERICK DALTON - Last Filed: 11/18/21 10:21> Assessment and Plan Assessment and plan: I saw and evaluated the patient. Discussed with the nurse practitioner and agree with their findings and plan as documented in this note. Hospitalist Physical - Constitutional Vitals: Temp Pulse Resp BP Pulse Ox 98.6 F 85 16 135/68 89 11/18/21 08:00 11/18/21 10:00 11/18/21 10:00 11/18/21 10:00 11/18/21 10:00 HEART Score - HEART Score Troponin: Troponin T 0.033 ng/mL (0.00-0.029) H 11/05/21 06:11 Results - Labs CBC & Chem 7: 11/18/21 05:10 11/18/21 07:10 Labs: Laboratory Last Values WBC 12.5 K/mm3 (4.5-11.0) H 11/18/21 05:10 RBC 2.39 M/mm3 (3.65-5.03) L 11/18/21 05:10 Hgb 6.1 gm/dl (10.1-14.3) L 11/18/21 05:10 Hct 20.2 % (30.3-42.9) L 11/18/21 05:10 MCV 85 fl (79-97) 11/18/21 05:10 MCH 25 pg (28-32) L 11/18/21 05:10 MCHC 30 % (30-34) 11/18/21 05:10 RDW 23.2 % (13.2-15.2) H 11/18/21 05:10 Plt Count 150 K/mm3 (140-440) 11/18/21 05:10 Add Manual Diff Complete 11/16/21 15:25 Total Counted 100 11/16/21 15:25 Seg Neutrophils % Commissary Agent 11/06/21 15:50 Seg Neuts % (Manual) 87.0 % (40.0-70.0) H 11/16/21 15:25 Band Neutrophils % 0 % 11/16/21 15:25 Lymphocytes % (Manual) 8.0 % (13.4-35.0) L 11/16/21 15:25 Reactive Lymphs % (Man) 0 % 11/16/21 15:25 Monocytes % (Manual) 5.0 % (0.0-7.3) 11/16/21 15:25 Eosinophils % (Manual) 0 % (0.0-4.3) 11/16/21 15:25 Basophils % (Manual) 0 % (0.0-1.8) 11/16/21 15:25 Metamyelocytes % 0 % 11/16/21 15:25 Myelocytes % 0 % 11/16/21 15:25 Promyelocytes % 0 % 11/16/21 15:25 Blast Cells % 0 % 11/16/21 15:25 Nucleated RBC % Not Reportable 11/16/21 15:25 Seg Neutrophils # Man 15.0 K/mm3 (1.8-7.7) H 11/16/21 15:25 Band Neutrophils # 0.0 K/mm3 11/16/21 15:25 Lymphocytes # (Manual) 1.4 K/mm3 (1.2-5.4) 11/16/21 15:25 Abs React Lymphs (Man) 0.0 K/mm3 11/16/21 15:25 Monocytes # (Manual) 0.9 K/mm3 (0.0-0.8) H 11/16/21 15:25 Eosinophils # (Manual) 0.0 K/mm3 (0.0-0.4) 11/16/21 15:25 Basophils # (Manual) 0.0 K/mm3 (0.0-0.1) 11/16/21 15:25 Metamyelocytes # 0.0 K/mm3 11/16/21 15:25 Myelocytes # 0.0 K/mm3 11/16/21 15:25 Promyelocytes # 0.0 K/mm3 11/16/21 15:25 Blast Cells # 0.0 K/mm3 11/16/21 15:25 WBC Morphology Not Reportable 11/16/21 15:25 Hypersegmented Neuts Not Reportable 11/16/21 15:25 Hyposegmented Neuts Not Reportable 11/16/21 15:25 Hypogranular Neuts Not Reportable 11/16/21 15:25 Smudge Cells Not Reportable 11/16/21 15:25 Toxic Granulation Not Reportable 11/16/21 15:25 Toxic Vacuolation Not Reportable 11/16/21 15:25 Dohle Bodies Not Reportable 11/16/21 15:25 Pelger-Huet Anomaly Not Reportable 11/16/21 15:25 Irina Rods Not Reportable 11/16/21 15:25 Platelet Estimate Consistent w auto 11/16/21 15:25 Clumped Platelets Rare 11/16/21 15:25 Plt Clumps, EDTA Not Reportable 11/16/21 15:25 Large Platelets Not Reportable 11/16/21 15:25 Giant Platelets Not Reportable 11/16/21 15:25 Platelet Satelliting Not Reportable 11/16/21 15:25 Plt Morphology Comment Not Reportable 11/16/21 15:25 RBC Morphology Not Reportable 11/16/21 15:25 Dimorphic RBCs Not Reportable 11/16/21 15:25 Polychromasia Not Reportable 11/16/21 15:25 Hypochromasia 2+ 11/16/21 15:25 Poikilocytosis Not Reportable 11/16/21 15:25 Anisocytosis 2+ 11/16/21 15:25 Microcytosis Not Reportable 11/16/21 15:25 Macrocytosis Not Reportable 11/16/21 15:25 Spherocytes Not Reportable 11/16/21 15:25 Pappenheimer Bodies Not Reportable 11/16/21 15:25 Sickle Cells Not Reportable 11/16/21 15:25 Target Cells 2+ 11/16/21 15:25 Tear Drop Cells Not Reportable 11/16/21 15:25 Ovalocytes Not Reportable 11/16/21 15:25 Helmet Cells Not Reportable 11/16/21 15:25 [place] Bodies Not Reportable 11/16/21 15:25 [place] Rings Not Reportable 11/16/21 15:25 [place] Cells Not Reportable 11/16/21 15:25 Bite Cells Not Reportable 11/16/21 15:25 Crenated Cell Not Reportable 11/16/21 15:25 Elliptocytes Not Reportable 11/16/21 15:25 Acanthocytes (Spur) Not Reportable 11/16/21 15:25 Rouleaux Not Reportable 11/16/21 15:25 Hemoglobin C Crystals Not Reportable 11/16/21 15:25 Schistocytes Not Reportable 11/16/21 15:25 Malaria parasites Not Reportable 11/16/21 15:25 Godfrey Bodies Not Reportable 11/16/21 15:25 Hem Pathologist Commnt No 11/16/21 15:25 PT 18.6 Sec. (12.2-14.9) H 11/03/21 22:32 INR 1.40 (0.87-1.13) H 11/03/21 22:32 APTT 28.9 Sec. (24.2-36.6) 11/03/21 22:32 D-Dimer 2655.00 ng/mlDDU (0-234) H 11/11/21 04:28 ABG pH 7.407 pH Units (7.350-7.450) 11/14/21 16:14 ABG pCO2 45.6 mm Hg 11/14/21 16:14 ABG pO2 80.6 mm Hg (80.0-90.0) 11/14/21 16:14 ABG HCO3 28.0 mmol/L (20.0-26.0) H 11/14/21 16:14 ABG O2 Saturation 97.0 % (95.0-99.0) 11/14/21 16:14 ABG O2 Content 7.8 (0.0-44) 11/14/21 16:14 ABG Base Excess 3.1 mmol/L (-2.0-3.0) H 11/14/21 16:14 ABG Hemoglobin 5.8 gm/dl (12.0-16.0) L 11/14/21 16:14 ABG Carboxyhemoglobin 2.0 % (0.0-5.0) 11/14/21 16:14 ABG Methemoglobin 0.3 % (0.0-1.5) 11/14/21 16:14 Oxyhemoglobin 94.8 % (95.0-99.0) L 11/14/21 16:14 FiO2 35 % 11/14/21 16:14 Sodium 148 mmol/L (137-145) H D 11/18/21 07:10 Potassium 3.1 mmol/L (3.6-5.0) L 11/18/21 07:10 Chloride 111.9 mmol/L (98-107) H 11/18/21 07:10 Carbon Dioxide 27 mmol/L (22-30) 11/18/21 07:10 Anion Gap 12 mmol/L 11/18/21 07:10 BUN 63 mg/dL (7-17) H 11/18/21 07:10 Creatinine 1.0 mg/dL (0.6-1.2) 11/18/21 07:10 Estimated GFR 53 ml/min 11/18/21 07:10 BUN/Creatinine Ratio 63 % 11/18/21 07:10 Glucose 141 mg/dL (65-100) H 11/18/21 07:10 POC Glucose 124 mg/dL (70-105) H 11/18/21 05:23 Lactic Acid 3.70 mmol/L (0.7-2.0) H* 11/03/21 22:32 Calcium 8.1 mg/dL (8.4-10.2) L D 11/18/21 07:10 Phosphorus 2.20 mg/dL (2.5-4.5) L D 11/18/21 05:10 Magnesium 1.50 mg/dL (1.7-2.3) L 11/18/21 05:10 Ferritin 52.6 ng/mL (10.0-200.0) 11/05/21 06:11 Total Bilirubin 0.50 mg/dL (0.1-1.2) 11/17/21 05:56 Direct Bilirubin < 0.2 mg/dL (0-0.2) 11/11/21 04:28 Indirect Bilirubin 0.1 mg/dL 11/11/21 04:28 AST 36 units/L (5-40) 11/17/21 05:56 ALT 47 units/L (7-56) 11/17/21 05:56 Alkaline Phosphatase 107 units/L (35-129) 11/17/21 05:56 Ammonia 42.0 umol/L (25-60) 11/10/21 14:08 Lactate Dehydrogenase 187 units/L (91-180) H 11/05/21 06:11 Troponin T 0.033 ng/mL (0.00-0.029) H 11/05/21 06:11 C-Reactive Protein 22.20 mg/dL (0.00-1.30) H 11/05/21 06:11 NT-Pro-B Natriuret Pep 7895 pg/mL (0-900) H 11/03/21 22:32 Total Protein 5.1 g/dL (6.3-8.2) L 11/17/21 05:56 Albumin 2.2 g/dL (3.9-5) L 11/17/21 05:56 Albumin/Globulin Ratio 0.8 % 11/17/21 05:56 Triglycerides 66 mg/dL (2-149) 11/03/21 22:32 Cholesterol 80 mg/dL (50-199) 11/03/21 22:32 LDL Cholesterol Direct 34 mg/dL (50-130) L 11/03/21 22:32 HDL Cholesterol 42 mg/dL (40-59) 11/03/21 22:32 Cholesterol/HDL Ratio 1.90 % 11/03/21 22:32 Vitamin B12 1823 pg/mL (211-911) H 11/10/21 14:08 TSH 1.510 mlU/mL (0.270-4.200) 11/10/21 14:08 Urine Color Yellow (Yellow) 11/11/21 09:00 Urine Turbidity Slightly-cloudy (Clear) 11/11/21 09:00 Urine pH 5.0 (5.0-7.0) 11/11/21 09:00 Ur Specific [place] 1.009 (1.003-1.030) 11/11/21 09:00 Urine Protein <15 mg/dl mg/dL (Negative) 11/11/21 09:00 Urine Glucose (UA) Neg mg/dL (Negative) 11/11/21 09:00 Urine Ketones Neg mg/dL (Negative) 11/11/21 09:00 Urine Blood Mod (Negative) 11/11/21 09:00 Urine Nitrite Neg (Negative) 11/11/21 09:00 Urine Bilirubin Neg (Negative) 11/11/21 09:00 Urine Urobilinogen < 2.0 mg/dL (<2.0) 11/11/21 09:00 Ur Leukocyte Esterase Neg (Negative) 11/11/21 09:00 Urine WBC (Auto) < 1.0 /HPF (0.0-6.0) 11/11/21 09:00 Urine RBC (Auto) < 1.0 /HPF (0.0-6.0) 11/11/21 09:00 Coronavirus (PCR) Negative (Negative) 11/10/21 08:30 Blood Type O POSITIVE 11/16/21 14:00 Antibody Screen Negative 11/16/21 14:00 Crossmatch See Detail 11/16/21 14:00 Gamble/IV: Voiding Method Indwelling Catheter Active Medications - Current Medications Current Medications: Generic Name Dose Route Start Last Admin Trade Name Freq PRN Reason Stop Dose Admin Acetaminophen 650 mg 11/04/21 02:03 11/16/21 15:43 Acetaminophen 325 Mg Tab PO 650 mg Q6H PRN Administration Pain MILD(1-3)/Fever >100.5/RODRIGUEZ Hydrocodone Bitart/Acetaminophen 1 each 11/15/21 20:00 11/18/21 09:58 Hydrocodone/Acetaminophen 10-325mg Tab PO 11/20/21 19:59 Not Given TID YOSSI Lipase/Protease/Amylase 1 each 11/08/21 11:09 Lipase 10,500/Protease 25,000/Amylase 43,750 (Units) Dr Lema FEEDTUBE PRN PRN For Clogged Feeding Tube Buspirone HCl 7.5 mg 11/17/21 22:00 11/18/21 09:58 Buspirone 5 Mg Tab PO Not Given BID YOSSI Dextrose 0 ml 11/10/21 10:52 Dextrose 10% *Hypoglycemia IV PRN PRN Hypoglycemia Docusate Sodium 100 mg 11/08/21 12:00 11/18/21 09:58 Docusate Sodium 100 Mg/10 Ml Oral Liqd PO Not Given BID YOSSI Fentanyl 25 mcg 11/17/21 12:07 11/18/21 09:18 Fentanyl 100 Mcg/2 Ml Inj IV 11/19/21 12:06 25 mcg Q2H PRN Administration Pain , Severe (7-10) Fentanyl 1 applic 11/17/21 13:00 11/17/21 13:00 Fentanyl 25 Mcg/Hr Patch 72hr TD 1 applic Q3D YOSSI Administration Hydrophilic Ointment 1 applic 11/06/21 04:02 Lip Therapy Vaseline TP Q2HR PRN Dry Lips NORepinephrine/NS 8 MG-250 ML 8 mg in 250 mls @ 3.75 mls/hr 11/05/21 09:00 11/18/21 03:26 Norepinephrine/Ns 8 Mg-250 Ml (Double Conc) IV 0 mcg/min TITRATE YOSSI 0 mls/hr Titration Protocol 2 MCG/MIN Vasopressin 20 unit/ Sodium 101 mls @ 9.09 mls/hr 11/05/21 23:00 11/06/21 01:00 Chloride IV 0.03 units/min TITR YOSSI 9.09 mls/hr Administration Protocol 0.03 UNITS/MIN Cefepime HCl 1 gm in 100 mls @ 200 mls/hr 11/12/21 16:00 11/18/21 09:16 Cefepime/Ns 1 Gm/100 Ml IV 200 mls/hr Q8H YOSSI Administration Protocol Pantoprazole Sodium 80 mg/ 100 mls @ 10 mls/hr 11/16/21 17:00 11/18/21 04:58 Sodium Chloride IV 8 mg/hr DIRECT YOSSI 10 mls/hr Administration 8 MG/HR Fentanyl Citrate 2,000 mcg in 100 mls @ 3.12 mls/hr 11/17/21 13:00 11/17/21 19:05 Fentanyl Drip Premix IV 0 mcg/kg/hr TITR YOSSI 0 mls/hr Titration Protocol 1 MCG/KG/HR Dextrose 1,000 mls @ 100 mls/hr 11/17/21 16:00 11/18/21 03:25 D5w IV 11/20/21 01:59 100 mls/hr DIRECT YOSSI Administration Magnesium Sulfate 4 gm in 100 mls @ 25 mls/hr 11/18/21 10:00 11/18/21 09:16 Magnesium Sulfate 4gm/100ml IV 11/18/21 13:59 25 mls/hr ONCE ONE Administration Potassium Phosphate 45 mmol/ 515 mls @ 85 mls/hr 11/18/21 10:00 11/18/21 09:58 Sodium Chloride IV 11/18/21 16:03 85 mls/hr ONCE ONE Administration Insulin Human Lispro 0 unit 11/06/21 12:00 11/18/21 05:28 Insulin Lispro 100 Unit/Ml SUB-Q Not Given Q6HR [facility] Protocol Levothyroxine Sodium 125 mcg 11/05/21 07:00 11/18/21 05:17 Levothyroxine 125 Mcg Tab PO Not Given DAILY@0600 YOSSI Magnesium Hydroxide 30 ml 11/04/21 02:03 Magnesium Hydroxide (Mom) Oral Liqd Udc PO Q4H PRN Constipation Multi-Ingred Cream/Lotion/Oil/Oint 1 applic 11/06/21 04:02 Mineral Oil/Petrolatum, White Ophth Oint 3.5 Gm OU Q4HR PRN Dry Eye(s) Ondansetron HCl 4 mg 11/04/21 02:03 11/05/21 15:48 Ondansetron 4 Mg/2 Ml Inj IV 4 mg Q8H PRN Administration Nausea And Vomiting Polyethylene Glycol 17 gm 11/08/21 12:00 11/18/21 09:58 Polyethylene Glycol 3350 17 Gm Powder PO Not Given QDAY [facility] Senna 17.6 mg 11/08/21 22:00 11/18/21 09:59 Sennosides Oral Liqd 8.8 Mg/5 Ml Oral Liqd PO Not Given Q12HR YOSSI Simple Syrup 15 ml 11/08/21 11:09 Simple Syrup 15 Ml FEEDTUBE PRN PRN Hypoglycemia Simple Syrup 30 ml 11/08/21 11:09 Simple Syrup 15 Ml FEEDTUBE PRN PRN Hypoglycemia Sodium Bicarbonate 325 mg 11/08/21 11:09 Sodium Bicarbonate 325 Mg Tab FEEDTUBE PRN PRN For Clogged Feeding Tube Sodium Chloride 10 ml 11/04/21 10:00 11/18/21 09:59 Sodium Chloride 0.9% 10 Ml Flush Syringe IV 10 ml BID YOSSI Administration Sodium Chloride 10 ml 11/04/21 02:03 Sodium Chloride 0.9% 10 Ml Flush Syringe IV PRN PRN LINE FLUSH Sodium Chloride 10 ml 11/10/21 09:57 11/17/21 20:47 Sodium Chloride 0.9% 50 Ml Ivpb IV 10 ml PRN PRN Administration FLUSH Nutrition/Malnutrition Assess - Dietary Evaluation Nutrition/Malnutrition Findings: Nutrition Notes Start: 11/04/21 17:16 Freq: Status: Active Protocol: Document 11/17/21 15:18 YOVANI (Rec: 11/17/21 15:27 [facility] [email or web address]) Nutrition Notes Initial or Follow up Reassessment Current Diagnosis Diabetes,Hypertension, Respiratory Failure Other Pertinent Diagnosis Septic shock, Bilat pneu, Anemia, GIB Current Diet NPO Labs/Tests Na 151 BUN 85 Pertinent Medications Levophed gtt, Vasopressin gtt, Protonix gtt, Fentanyl Height 5 ft Weight 62.4 kg [place] Body Weight (kg) 45.45 BMI 26.9 Weight change and time frame Wt change noted Weight Status Appropriate Subjective/Other Information Per RN, TF turned off sec to scheduled procedure today (IVC filter placement). Pt remains on vent support. #1 Nutrition Diagnosis Inadequate oral intake Diagnosis Progress(for reassessment Continues documentation) Is patient on ventilator? Yes Is Patient Ambulatory and/or Out of Bed No REE-([place] Jeor-confined to bed) [phone] Calculation Used for Recommendations [place] Additional Notes Pro needs 1.2-2g/k-125g/ day Fluid needs 1ml/kcal Nutrition Intervention Nutrition Support: Resume TF when medically feasible. Pt to either receive Vital AF 1.2 at 40ml/ hr or Glucerna 1.2 at 40ml/hr. Goal #1 Resume TF to meet nutrient needs Follow-Up By: 11/19/21 Additional Comments F/U: TF restart/tolerance, vent status, Na lab/water flush
--- NOTE | 2021-11-16 14:36 | Progress Note ---
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 (Discussed care plan at length with her and daughter over the phone and answered all their questions; they alsdo mention she takes Lortabs 10 4 times daily religiously for chronic pain) - resume full support via AC mode - stat repeat on CBC - transfuse 2 units PRBC's if confirmed - send stool occult bleed - get Vascular surgery consult as may need IVC filter if continued anemia on anticoagulation - continue scopolamine patch for better secretion control - wean Levophed for target MAP > 65 mmHg - continue treatment dose Lovenox for DVT - continue care as below otherwise; - Daily SAT and SBT assessment as tolerated - continue to wean supplemental oxygen for target O2 sat's > 90% acutely - VAP bundle addressed - continue lung protective strategies - continue bronchodilators with pulmonary hygiene per RT - wean per pulmonary driven protocols otherwise - avoid nephrotoxins, renally dose all medications - continue accuchecks with glycemic control per SSI (While critically ill target blood glucose of 140-180 mg/dL; avoid hypoglycemia) - sedation prn for target RASS 0 to -1 - antibiotics per ID recommendations - continue to avoid benzodiazepine's, reduce the possibility of delirium - prn analgesia per CPOT score - Maintenance of sleep-wake cycle, avoid delirium - continue enteral nutritional support at goal rate as tolerated - G.I. & VTE prophylaxis - PT/OT/ROM exercises - continue mobility protocols for pressure ulcer prophylaxis - Monitor hemodynamics closely - continue other care per attending / other consultants - discharge planning ongoing concurrently COVID SPECIFIC INTERVENTIONS - COVID-19 PCR negative .... Re-evaluate in am & prn CONDITION: CRITICAL PROGNOSIS: GUARDED CODE STATUS: FULL CODE The high probability of a clinically significant, sudden or life-threatening deterioration of the [respiratory, cardiovascular & neurologic] system(s) required my full and direct attention, intervention and personal management. The aggregate critical care time was [32] minutes without overlap. Time includes spent on; [x] Data Review and interpretation [x] Patient assessment and monitoring of vital signs [x] Documentation [x] Medication orders and management Subjective Date of service: 11/16/21 Principal diagnosis: Septic shock; AHRF; Anemia; Pneumonia; L. pleural effusion; HFrEF; Pulm HTN Interval history: Patient is seen today for: Septic shock; Acute hypoxemic respiratory failure; Anemia; Bilateral pneumonia; Left pleural effusion; HFrEF 30-35%; Pulm HTN RVSP 49 Seen and examined at bedside; 24hour events reviewed; nursing and respiratory care staff consulted; no adverse overnight events reported to me; resting in bed; remains on MVS; serum Hb down to 6.2 but no gross bleeding reported; also BMP with significant worsening in azotemia; on SBT with p-supp at 14 cm H2O but in moderate distress. Objective Vital Signs - 12hr 11/16/21 11/16/21 11/16/21 02:45 03:00 03:15 Temperature Pulse Rate 97 H 102 H Pulse Rate [ From Monitor] Respiratory 20 22 Rate Blood Pressure 124/55 124/55 129/56 O2 Sat by Pulse 100 100 Oximetry 11/16/21 11/16/21 11/16/21 03:30 03:45 03:57 Temperature 98.8 F Pulse Rate 103 H 108 H Pulse Rate [ From Monitor] Respiratory 22 32 H Rate Blood Pressure 139/61 141/66 O2 Sat by Pulse 100 100 Oximetry 11/16/21 11/16/21 11/16/21 04:00 04:15 04:30 Temperature Pulse Rate 105 H 106 H 105 H Pulse Rate [ 105 H From Monitor] Respiratory 19 40 H 23 Rate Blood Pressure 136/56 135/61 135/60 O2 Sat by Pulse 100 100 100 Oximetry 11/16/21 11/16/21 11/16/21 04:45 05:00 05:15 Temperature Pulse Rate 105 H 106 H 107 H Pulse Rate [ From Monitor] Respiratory 17 27 H 26 H Rate Blood Pressure 130/54 134/59 130/56 O2 Sat by Pulse 100 100 100 Oximetry 11/16/21 11/16/21 11/16/21 05:30 05:45 06:00 Temperature Pulse Rate 106 H 106 H 111 H Pulse Rate [ From Monitor] Respiratory 26 H 25 H 20 Rate Blood Pressure 122/53 147/61 147/63 O2 Sat by Pulse 100 97 100 Oximetry 11/16/21 11/16/21 11/16/21 06:15 06:30 06:45 Temperature Pulse Rate 115 H 115 H 116 H Pulse Rate [ From Monitor] Respiratory 19 18 22 Rate Blood Pressure 141/65 137/63 143/56 O2 Sat by Pulse 100 100 99 Oximetry 11/16/21 11/16/21 11/16/21 07:00 07:30 07:33 Temperature Pulse Rate 115 H 110 H 109 H Pulse Rate [ From Monitor] Respiratory 17 25 H Rate Blood Pressure 143/56 114/44 114/44 O2 Sat by Pulse 100 95 97 Oximetry 11/16/21 11/16/21 11/16/21 08:00 08:30 08:37 Temperature 98.5 F Pulse Rate 110 H 112 H Pulse Rate [ 112 H From Monitor] Respiratory 26 H 25 H 25 H Rate Blood Pressure 100/39 113/45 O2 Sat by Pulse 99 99 Oximetry 11/16/21 11/16/21 11/16/21 09:00 09:30 09:37 Temperature Pulse Rate 113 H 114 H Pulse Rate [ From Monitor] Respiratory 25 H 24 24 Rate Blood Pressure 112/44 102/39 O2 Sat by Pulse 100 100 Oximetry 11/16/21 11/16/21 11/16/21 10:00 10:30 11:00 Temperature Pulse Rate 110 H 112 H 112 H Pulse Rate [ From Monitor] Respiratory 25 H 25 H 27 H Rate Blood Pressure 116/45 108/42 103/42 O2 Sat by Pulse 92 98 99 Oximetry 11/16/21 11/16/21 11/16/21 11:12 11:30 12:00 Temperature 102.2 F H Pulse Rate 113 H 111 H 110 H Pulse Rate [ 113 H From Monitor] Respiratory 25 H 22 Rate Blood Pressure 103/42 100/42 106/52 O2 Sat by Pulse 100 99 100 Oximetry 11/16/21 11/16/21 11/16/21 12:30 13:00 13:30 Temperature Pulse Rate 109 H 111 H 111 H Pulse Rate [ From Monitor] Respiratory 22 25 H 25 H Rate Blood Pressure 105/47 120/55 120/55 O2 Sat by Pulse 100 99 98 Oximetry 11/16/21 11/16/21 13:38 14:00 Temperature Pulse Rate 103 H Pulse Rate [ From Monitor] Respiratory 25 H 22 Rate Blood Pressure 116/48 O2 Sat by Pulse 98 Oximetry Constitutional: appears uncomfortable, other (ETT to MVS, frail elderly woman with mildly increased respiratory effort at rest) Eyes: non-icteric ENT: oropharynx moist, oropharyngeal exudate pre (clear frothy), other (ETT 23 cm ELIZABETH) Neck: supple, no lymphadenopathy, no JVD Effort: normal, mildly labored Ascultation: Bilateral: diminished breath sounds, rhonchi Percussion: Bilateral: not dull Cardiovascular: regular rate and rhythm, other (S1,S2) Gastrointestinal: normoactive bowel sounds, soft, non-tender, non-distended Integumentary: normal Extremities: no edema, pink and warm, pulses normal, edema (trace) Neurologic: non-focal exam (grossly), pupils equal and round, CN II-XII normal, unable to assess, other (sedated) Psychiatric: other (unable to assess re: AMS) CBC and BMP: 11/16/21 10:00 11/16/21 10:00 ABG, PT/INR, D-dimer: ABG ABG pH 7.407 pH Units (7.350-7.450) 11/14/21 16:14 ABG pCO2 45.6 mm Hg 11/14/21 16:14 ABG pO2 80.6 mm Hg (80.0-90.0) 11/14/21 16:14 ABG O2 Saturation 97.0 % (95.0-99.0) 11/14/21 16:14 PT/INR, D-dimer PT 18.6 Sec. (12.2-14.9) H 11/03/21 22:32 INR 1.40 (0.87-1.13) H 11/03/21 22:32 D-Dimer 2655.00 ng/mlDDU (0-234) H 11/11/21 04:28 Abnormal lab findings: Abnormal Labs 11/03/21 11/03/21 11/03/21 22:32 22:32 22:32 WBC 29.3 H RBC 2.93 L Hgb 6.1 L Hct 21.9 L MCV 75 L MCH 21 L MCHC 28 L RDW 19.7 H Plt Count Seg Neuts % (Manual) 97.0 H Lymphocytes % (Manual) 3.0 L Seg Neutrophils # Man 28.4 H Lymphocytes # (Manual) 0.9 L Monocytes # (Manual) PT 18.6 H INR 1.40 H D-Dimer ABG pH ABG pO2 ABG HCO3 ABG O2 Saturation ABG Base Excess ABG Hemoglobin Oxyhemoglobin Sodium Potassium Chloride Carbon Dioxide 20 L BUN 33 H Glucose 119 H POC Glucose Lactic Acid Calcium 8.3 L Phosphorus Magnesium AST ALT Alkaline Phosphatase Lactate Dehydrogenase Troponin T 0.035 H C-Reactive Protein NT-Pro-B Natriuret Pep Total Protein Albumin LDL Cholesterol Direct 34 L Vitamin B12 Crossmatch 11/03/21 11/03/21 11/03/21 22:32 22:32 23:57 WBC RBC Hgb Hct MCV MCH MCHC RDW Plt Count Seg Neuts % (Manual) Lymphocytes % (Manual) Seg Neutrophils # Man Lymphocytes # (Manual) Monocytes # (Manual) PT INR D-Dimer ABG pH ABG pO2 ABG HCO3 ABG O2 Saturation ABG Base Excess ABG Hemoglobin Oxyhemoglobin Sodium Potassium Chloride Carbon Dioxide BUN Glucose POC Glucose Lactic Acid 3.70 H* Calcium Phosphorus Magnesium AST ALT Alkaline Phosphatase 139 H Lactate Dehydrogenase Troponin T C-Reactive Protein NT-Pro-B Natriuret Pep 7895 H Total Protein Albumin 3.5 L LDL Cholesterol Direct Vitamin B12 Crossmatch See Detail 11/04/21 11/04/21 11/05/21 00:59 13:58 00:51 WBC 27.9 H RBC 3.28 L Hgb 7.3 L Hct 25.5 L MCV 78 L MCH 22 L MCHC 29 L RDW 19.1 H Plt Count Seg Neuts % (Manual) 96.0 H Lymphocytes % (Manual) 2.0 L Seg Neutrophils # Man 26.8 H Lymphocytes # (Manual) 0.6 L Monocytes # (Manual) PT INR D-Dimer ABG pH ABG pO2 ABG HCO3 ABG O2 Saturation ABG Base Excess ABG Hemoglobin Oxyhemoglobin Sodium Potassium Chloride Carbon Dioxide BUN Glucose POC Glucose Lactic Acid Calcium Phosphorus Magnesium AST ALT Alkaline Phosphatase Lactate Dehydrogenase Troponin T 0.051 H D 0.032 H D C-Reactive Protein NT-Pro-B Natriuret Pep Total Protein Albumin LDL Cholesterol Direct Vitamin B12 Crossmatch 11/05/21 11/05/21 11/05/21 06:11 06:11 06:11 WBC 31.8 H RBC 3.57 L Hgb 8.0 L Hct 27.7 L MCV 78 L MCH 22 L MCHC 29 L RDW 19.2 H Plt Count Seg Neuts % (Manual) 91.0 H Lymphocytes % (Manual) 4.5 L Seg Neutrophils # Man 28.9 H Lymphocytes # (Manual) Monocytes # (Manual) 1.1 H PT INR D-Dimer 1494.53 H ABG pH ABG pO2 ABG HCO3 ABG O2 Saturation ABG Base Excess ABG Hemoglobin Oxyhemoglobin Sodium Potassium Chloride Carbon Dioxide 19 L BUN 42 H Glucose 115 H POC Glucose Lactic Acid Calcium Phosphorus Magnesium AST 43 H ALT Alkaline Phosphatase Lactate Dehydrogenase 187 H Troponin T C-Reactive Protein 22.20 H NT-Pro-B Natriuret Pep Total Protein 6.0 L Albumin 3.2 L LDL Cholesterol Direct Vitamin B12 Crossmatch 11/05/21 11/05/21 11/06/21 06:11 12:15 00:30 WBC RBC Hgb Hct MCV MCH MCHC RDW Plt Count Seg Neuts % (Manual) Lymphocytes % (Manual) Seg Neutrophils # Man Lymphocytes # (Manual) Monocytes # (Manual) PT INR D-Dimer ABG pH ABG pO2 ABG HCO3 ABG O2 Saturation ABG Base Excess ABG Hemoglobin Oxyhemoglobin Sodium Potassium Chloride Carbon Dioxide BUN Glucose POC Glucose 113 H 69 L Lactic Acid Calcium Phosphorus Magnesium AST ALT Alkaline Phosphatase Lactate Dehydrogenase Troponin T 0.033 H C-Reactive Protein NT-Pro-B Natriuret Pep Total Protein Albumin LDL Cholesterol Direct Vitamin B12 Crossmatch 11/06/21 11/06/21 11/06/21 05:50 15:50 15:50 WBC 25.5 H RBC 3.62 L Hgb 8.0 L Hct 27.5 L MCV 76 L MCH 22 L MCHC 29 L RDW 19.6 H Plt Count Seg Neuts % (Manual) 92.0 H Lymphocytes % (Manual) 5.0 L Seg Neutrophils # Man 23.5 H Lymphocytes # (Manual) Monocytes # (Manual) PT INR D-Dimer ABG pH 7.305 L ABG pO2 ABG HCO3 15.8 L ABG O2 Saturation ABG Base Excess -9.6 L ABG Hemoglobin 8.6 L Oxyhemoglobin 94.6 L Sodium Potassium Chloride 113.9 H Carbon Dioxide 17 L BUN 56 H Glucose 114 H POC Glucose Lactic Acid Calcium 7.9 L Phosphorus Magnesium AST 1410 H ALT 934 H Alkaline Phosphatase 142 H Lactate Dehydrogenase Troponin T C-Reactive Protein NT-Pro-B Natriuret Pep Total Protein 5.0 L Albumin 2.6 L LDL Cholesterol Direct Vitamin B12 Crossmatch 11/07/21 11/07/21 11/07/21 03:30 04:50 08:07 WBC RBC Hgb Hct MCV MCH MCHC RDW Plt Count Seg Neuts % (Manual) Lymphocytes % (Manual) Seg Neutrophils # Man Lymphocytes # (Manual) Monocytes # (Manual) PT INR D-Dimer ABG pH ABG pO2 296.9 H ABG HCO3 18.1 L ABG O2 Saturation 99.5 H ABG Base Excess -5.9 L ABG Hemoglobin 7.6 L Oxyhemoglobin Sodium Potassium Chloride Carbon Dioxide BUN Glucose POC Glucose 106 H 108 H Lactic Acid Calcium Phosphorus Magnesium AST ALT Alkaline Phosphatase Lactate Dehydrogenase Troponin T C-Reactive Protein NT-Pro-B Natriuret Pep Total Protein Albumin LDL Cholesterol Direct Vitamin B12 Crossmatch 11/08/21 11/08/21 11/08/21 03:10 18:05 23:43 WBC RBC Hgb Hct MCV MCH MCHC RDW Plt Count Seg Neuts % (Manual) Lymphocytes % (Manual) Seg Neutrophils # Man Lymphocytes # (Manual) Monocytes # (Manual) PT INR D-Dimer ABG pH ABG pO2 127.4 H ABG HCO3 ABG O2 Saturation ABG Base Excess -3.4 L ABG Hemoglobin 7.4 L Oxyhemoglobin Sodium Potassium Chloride Carbon Dioxide BUN Glucose POC Glucose 113 H 141 H Lactic Acid Calcium Phosphorus Magnesium AST ALT Alkaline Phosphatase Lactate Dehydrogenase Troponin T C-Reactive Protein NT-Pro-B Natriuret Pep Total Protein Albumin LDL Cholesterol Direct Vitamin B12 Crossmatch 11/08/21 11/08/21 11/09/21 Unknown Unknown 02:00 WBC 14.5 H RBC 3.35 L Hgb 7.5 L 8.1 L Hct 25.4 L 27.6 L MCV 76 L 76 L MCH 23 L 22 L MCHC RDW 19.9 H 19.9 H Plt Count Seg Neuts % (Manual) Lymphocytes % (Manual) Seg Neutrophils # Man Lymphocytes # (Manual) Monocytes # (Manual) PT INR D-Dimer ABG pH ABG pO2 ABG HCO3 ABG O2 Saturation ABG Base Excess ABG Hemoglobin Oxyhemoglobin Sodium 154 H D Potassium 3.3 L Chloride 120.7 H Carbon Dioxide 20 L BUN 38 H Glucose POC Glucose Lactic Acid Calcium 8.3 L Phosphorus Magnesium AST ALT Alkaline Phosphatase Lactate Dehydrogenase Troponin T C-Reactive Protein NT-Pro-B Natriuret Pep Total Protein Albumin LDL Cholesterol Direct Vitamin B12 Crossmatch 11/09/21 11/09/21 11/09/21 02:00 02:31 05:12 WBC RBC Hgb Hct MCV MCH MCHC RDW Plt Count Seg Neuts % (Manual) Lymphocytes % (Manual) Seg Neutrophils # Man Lymphocytes # (Manual) Monocytes # (Manual) PT INR D-Dimer ABG pH 7.479 H ABG pO2 121.3 H ABG HCO3 ABG O2 Saturation ABG Base Excess ABG Hemoglobin 7.3 L Oxyhemoglobin Sodium Potassium Chloride 112.5 H Carbon Dioxide BUN 33 H Glucose 161 H POC Glucose 135 H Lactic Acid Calcium Phosphorus Magnesium AST 251 H ALT 481 H Alkaline Phosphatase Lactate Dehydrogenase Troponin T C-Reactive Protein NT-Pro-B Natriuret Pep Total Protein 5.0 L Albumin 2.8 L LDL Cholesterol Direct Vitamin B12 Crossmatch 11/09/21 11/09/21 11/09/21 11:33 16:32 23:28 WBC RBC Hgb Hct MCV MCH MCHC RDW Plt Count Seg Neuts % (Manual) Lymphocytes % (Manual) Seg Neutrophils # Man Lymphocytes # (Manual) Monocytes # (Manual) PT INR D-Dimer ABG pH ABG pO2 ABG HCO3 ABG O2 Saturation ABG Base Excess ABG Hemoglobin Oxyhemoglobin Sodium Potassium Chloride Carbon Dioxide BUN Glucose POC Glucose 132 H 133 H 143 H Lactic Acid Calcium Phosphorus Magnesium AST ALT Alkaline Phosphatase Lactate Dehydrogenase Troponin T C-Reactive Protein NT-Pro-B Natriuret Pep Total Protein Albumin LDL Cholesterol Direct Vitamin B12 Crossmatch 11/10/21 11/10/21 11/10/21 04:00 04:00 05:35 WBC 16.0 H RBC 3.61 L Hgb 8.0 L Hct 27.1 L MCV 75 L MCH 22 L MCHC RDW 20.4 H Plt Count Seg Neuts % (Manual) Lymphocytes % (Manual) Seg Neutrophils # Man Lymphocytes # (Manual) Monocytes # (Manual) PT INR D-Dimer ABG pH ABG pO2 ABG HCO3 ABG O2 Saturation ABG Base Excess ABG Hemoglobin Oxyhemoglobin Sodium 149 H Potassium Chloride 114.1 H Carbon Dioxide BUN 31 H Glucose 148 H POC Glucose 132 H Lactic Acid Calcium 8.2 L Phosphorus Magnesium AST ALT Alkaline Phosphatase Lactate Dehydrogenase Troponin T C-Reactive Protein NT-Pro-B Natriuret Pep Total Protein Albumin LDL Cholesterol Direct Vitamin B12 Crossmatch 11/10/21 11/10/21 11/10/21 11:31 14:08 15:35 WBC RBC Hgb Hct MCV MCH MCHC RDW Plt Count Seg Neuts % (Manual) Lymphocytes % (Manual) Seg Neutrophils # Man Lymphocytes # (Manual) Monocytes # (Manual) PT INR D-Dimer ABG pH ABG pO2 126.6 H ABG HCO3 ABG O2 Saturation ABG Base Excess ABG Hemoglobin 7.4 L Oxyhemoglobin Sodium Potassium Chloride Carbon Dioxide BUN Glucose POC Glucose 147 H Lactic Acid Calcium Phosphorus Magnesium AST ALT Alkaline Phosphatase Lactate Dehydrogenase Troponin T C-Reactive Protein NT-Pro-B Natriuret Pep Total Protein Albumin LDL Cholesterol Direct Vitamin B12 1823 H Crossmatch 11/10/21 11/11/21 11/11/21 17:53 00:55 04:28 WBC RBC Hgb Hct MCV MCH MCHC RDW Plt Count Seg Neuts % (Manual) Lymphocytes % (Manual) Seg Neutrophils # Man Lymphocytes # (Manual) Monocytes # (Manual) PT INR D-Dimer ABG pH ABG pO2 ABG HCO3 ABG O2 Saturation ABG Base Excess ABG Hemoglobin Oxyhemoglobin Sodium 149 H Potassium Chloride 112.2 H Carbon Dioxide BUN 34 H Glucose 148 H POC Glucose 140 H 145 H Lactic Acid Calcium 7.9 L Phosphorus Magnesium AST 53 H ALT 203 H Alkaline Phosphatase Lactate Dehydrogenase Troponin T C-Reactive Protein NT-Pro-B Natriuret Pep Total Protein 4.9 L Albumin 2.6 L LDL Cholesterol Direct Vitamin B12 Crossmatch 11/11/21 11/11/21 11/11/21 04:28 04:28 05:28 WBC 20.9 H RBC 3.47 L Hgb 7.5 L Hct 26.0 L MCV 75 L MCH 22 L MCHC 29 L RDW 21.6 H Plt Count 132 L Seg Neuts % (Manual) Lymphocytes % (Manual) Seg Neutrophils # Man Lymphocytes # (Manual) Monocytes # (Manual) PT INR D-Dimer 2655.00 H ABG pH ABG pO2 ABG HCO3 ABG O2 Saturation ABG Base Excess ABG Hemoglobin Oxyhemoglobin Sodium Potassium Chloride Carbon Dioxide BUN Glucose POC Glucose 154 H Lactic Acid Calcium Phosphorus Magnesium AST ALT Alkaline Phosphatase Lactate Dehydrogenase Troponin T C-Reactive Protein NT-Pro-B Natriuret Pep Total Protein Albumin LDL Cholesterol Direct Vitamin B12 Crossmatch 11/11/21 11/11/21 11/12/21 12:38 18:13 00:14 WBC RBC Hgb Hct MCV MCH MCHC RDW Plt Count Seg Neuts % (Manual) Lymphocytes % (Manual) Seg Neutrophils # Man Lymphocytes # (Manual) Monocytes # (Manual) PT INR D-Dimer ABG pH ABG pO2 ABG HCO3 ABG O2 Saturation ABG Base Excess ABG Hemoglobin Oxyhemoglobin Sodium Potassium Chloride Carbon Dioxide BUN Glucose POC Glucose 137 H 108 H 137 H Lactic Acid Calcium Phosphorus Magnesium AST ALT Alkaline Phosphatase Lactate Dehydrogenase Troponin T C-Reactive Protein NT-Pro-B Natriuret Pep Total Protein Albumin LDL Cholesterol Direct Vitamin B12 Crossmatch 11/12/21 11/12/21 11/12/21 05:40 06:24 11:12 WBC RBC Hgb Hct MCV MCH MCHC RDW Plt Count Seg Neuts % (Manual) Lymphocytes % (Manual) Seg Neutrophils # Man Lymphocytes # (Manual) Monocytes # (Manual) PT INR D-Dimer ABG pH 7.586 H ABG pO2 150.6 H ABG HCO3 27.2 H ABG O2 Saturation 99.1 H ABG Base Excess 5.2 H ABG Hemoglobin 7.5 L Oxyhemoglobin Sodium Potassium Chloride Carbon Dioxide BUN Glucose POC Glucose 132 H 140 H Lactic Acid Calcium Phosphorus Magnesium AST ALT Alkaline Phosphatase Lactate Dehydrogenase Troponin T C-Reactive Protein NT-Pro-B Natriuret Pep Total Protein Albumin LDL Cholesterol Direct Vitamin B12 Crossmatch 11/12/21 11/12/21 11/12/21 14:50 14:50 17:13 WBC 19.8 H RBC 3.27 L Hgb 7.1 L Hct 24.5 L MCV 75 L MCH 22 L MCHC 29 L RDW 22.3 H Plt Count Seg Neuts % (Manual) Lymphocytes % (Manual) Seg Neutrophils # Man Lymphocytes # (Manual) Monocytes # (Manual) PT INR D-Dimer ABG pH ABG pO2 ABG HCO3 ABG O2 Saturation ABG Base Excess ABG Hemoglobin Oxyhemoglobin Sodium 150 H Potassium 3.3 L Chloride 112.0 H Carbon Dioxide BUN 40 H Glucose 151 H POC Glucose 121 H Lactic Acid Calcium 7.4 L Phosphorus 1.70 L Magnesium 1.40 L AST ALT Alkaline Phosphatase Lactate Dehydrogenase Troponin T C-Reactive Protein NT-Pro-B Natriuret Pep Total Protein Albumin LDL Cholesterol Direct Vitamin B12 Crossmatch 11/12/21 11/13/21 11/13/21 23:19 05:34 06:30 WBC RBC Hgb Hct MCV MCH MCHC RDW Plt Count Seg Neuts % (Manual) Lymphocytes % (Manual) Seg Neutrophils # Man Lymphocytes # (Manual) Monocytes # (Manual) PT INR D-Dimer ABG pH ABG pO2 ABG HCO3 ABG O2 Saturation ABG Base Excess ABG Hemoglobin Oxyhemoglobin Sodium 149 H Potassium Chloride 60.0 L Carbon Dioxide BUN 40 H Glucose 146 H POC Glucose 113 H 132 H Lactic Acid Calcium 7.3 L Phosphorus Magnesium 2.40 H AST ALT 72 H Alkaline Phosphatase Lactate Dehydrogenase Troponin T C-Reactive Protein NT-Pro-B Natriuret Pep Total Protein 5.2 L Albumin 2.2 L LDL Cholesterol Direct Vitamin B12 Crossmatch 11/13/21 11/13/21 11/13/21 06:30 08:30 11:19 WBC 21.2 H RBC 3.12 L Hgb 6.8 L Hct 23.2 L MCV 74 L MCH 22 L MCHC 29 L RDW 22.2 H Plt Count 135 L Seg Neuts % (Manual) Lymphocytes % (Manual) Seg Neutrophils # Man Lymphocytes # (Manual) Monocytes # (Manual) PT INR D-Dimer ABG pH ABG pO2 ABG HCO3 ABG O2 Saturation ABG Base Excess ABG Hemoglobin Oxyhemoglobin Sodium Potassium Chloride Carbon Dioxide BUN Glucose POC Glucose 136 H Lactic Acid Calcium Phosphorus Magnesium AST ALT Alkaline Phosphatase Lactate Dehydrogenase Troponin T C-Reactive Protein NT-Pro-B Natriuret Pep Total Protein Albumin LDL Cholesterol Direct Vitamin B12 Crossmatch See Detail 11/13/21 11/14/21 11/14/21 18:21 00:01 04:46 WBC 20.0 H RBC 3.41 L Hgb 7.9 L Hct 26.8 L MCV MCH 23 L MCHC 29 L RDW 24.0 H Plt Count Seg Neuts % (Manual) Lymphocytes % (Manual) Seg Neutrophils # Man Lymphocytes # (Manual) Monocytes # (Manual) PT INR D-Dimer ABG pH ABG pO2 ABG HCO3 ABG O2 Saturation ABG Base Excess ABG Hemoglobin Oxyhemoglobin Sodium Potassium Chloride Carbon Dioxide BUN Glucose POC Glucose 149 H 141 H Lactic Acid Calcium Phosphorus Magnesium AST ALT Alkaline Phosphatase Lactate Dehydrogenase Troponin T C-Reactive Protein NT-Pro-B Natriuret Pep Total Protein Albumin LDL Cholesterol Direct Vitamin B12 Crossmatch 11/14/21 11/14/21 11/14/21 04:46 05:10 11:10 WBC RBC Hgb Hct MCV MCH MCHC RDW Plt Count Seg Neuts % (Manual) Lymphocytes % (Manual) Seg Neutrophils # Man Lymphocytes # (Manual) Monocytes # (Manual) PT INR D-Dimer ABG pH ABG pO2 ABG HCO3 ABG O2 Saturation ABG Base Excess ABG Hemoglobin Oxyhemoglobin Sodium 148 H Potassium Chloride 113.1 H Carbon Dioxide BUN 43 H Glucose 140 H POC Glucose 132 H 133 H Lactic Acid Calcium 7.5 L Phosphorus Magnesium AST ALT Alkaline Phosphatase Lactate Dehydrogenase Troponin T C-Reactive Protein NT-Pro-B Natriuret Pep Total Protein Albumin LDL Cholesterol Direct Vitamin B12 Crossmatch 11/14/21 11/14/21 11/14/21 16:14 17:48 23:23 WBC RBC Hgb Hct MCV MCH MCHC RDW Plt Count Seg Neuts % (Manual) Lymphocytes % (Manual) Seg Neutrophils # Man Lymphocytes # (Manual) Monocytes # (Manual) PT INR D-Dimer ABG pH ABG pO2 ABG HCO3 28.0 H ABG O2 Saturation ABG Base Excess 3.1 H ABG Hemoglobin 5.8 L Oxyhemoglobin 94.8 L Sodium Potassium Chloride Carbon Dioxide BUN Glucose POC Glucose 130 H 136 H Lactic Acid Calcium Phosphorus Magnesium AST ALT Alkaline Phosphatase Lactate Dehydrogenase Troponin T C-Reactive Protein NT-Pro-B Natriuret Pep Total Protein Albumin LDL Cholesterol Direct Vitamin B12 Crossmatch 11/15/21 11/15/21 11/15/21 05:20 05:50 05:50 WBC 19.9 H RBC 3.50 L Hgb 8.2 L Hct 27.9 L MCV MCH 23 L MCHC 29 L RDW 24.9 H Plt Count Seg Neuts % (Manual) Lymphocytes % (Manual) Seg Neutrophils # Man Lymphocytes # (Manual) Monocytes # (Manual) PT INR D-Dimer ABG pH ABG pO2 ABG HCO3 ABG O2 Saturation ABG Base Excess ABG Hemoglobin Oxyhemoglobin Sodium 149 H Potassium Chloride 112.0 H Carbon Dioxide BUN 48 H Glucose 152 H POC Glucose 137 H Lactic Acid Calcium 7.9 L Phosphorus Magnesium AST ALT Alkaline Phosphatase Lactate Dehydrogenase Troponin T C-Reactive Protein NT-Pro-B Natriuret Pep Total Protein Albumin LDL Cholesterol Direct Vitamin B12 Crossmatch 11/15/21 11/15/21 11/15/21 12:12 17:07 23:24 WBC RBC Hgb Hct MCV MCH MCHC RDW Plt Count Seg Neuts % (Manual) Lymphocytes % (Manual) Seg Neutrophils # Man Lymphocytes # (Manual) Monocytes # (Manual) PT INR D-Dimer ABG pH ABG pO2 ABG HCO3 ABG O2 Saturation ABG Base Excess ABG Hemoglobin Oxyhemoglobin Sodium Potassium Chloride Carbon Dioxide BUN Glucose POC Glucose 114 H 135 H 123 H Lactic Acid Calcium Phosphorus Magnesium AST ALT Alkaline Phosphatase Lactate Dehydrogenase Troponin T C-Reactive Protein NT-Pro-B Natriuret Pep Total Protein Albumin LDL Cholesterol Direct Vitamin B12 Crossmatch 11/16/21 11/16/21 11/16/21 05:21 10:00 10:00 WBC 21.7 H RBC 2.57 L Hgb 6.0 L Hct 20.2 L D MCV MCH 24 L MCHC RDW 26.3 H Plt Count Seg Neuts % (Manual) Lymphocytes % (Manual) Seg Neutrophils # Man Lymphocytes # (Manual) Monocytes # (Manual) PT INR D-Dimer ABG pH ABG pO2 ABG HCO3 ABG O2 Saturation ABG Base Excess ABG Hemoglobin Oxyhemoglobin Sodium 153 H Potassium Chloride 114.9 H Carbon Dioxide BUN 74 H Glucose 155 H POC Glucose 127 H Lactic Acid Calcium 8.1 L Phosphorus Magnesium AST ALT Alkaline Phosphatase Lactate Dehydrogenase Troponin T C-Reactive Protein NT-Pro-B Natriuret Pep Total Protein Albumin LDL Cholesterol Direct Vitamin B12 Crossmatch 11/16/21 11:34 WBC RBC Hgb Hct MCV MCH MCHC RDW Plt Count Seg Neuts % (Manual) Lymphocytes % (Manual) Seg Neutrophils # Man Lymphocytes # (Manual) Monocytes # (Manual) PT INR D-Dimer ABG pH ABG pO2 ABG HCO3 ABG O2 Saturation ABG Base Excess ABG Hemoglobin Oxyhemoglobin Sodium Potassium Chloride Carbon Dioxide BUN Glucose POC Glucose 131 H Lactic Acid Calcium Phosphorus Magnesium AST ALT Alkaline Phosphatase Lactate Dehydrogenase Troponin T C-Reactive Protein NT-Pro-B Natriuret Pep Total Protein Albumin LDL Cholesterol Direct Vitamin B12 Crossmatch Chest x-ray: image reviewed (improved areation) Allied health notes reviewed: nursing
[2021-11-16] MEDS: ACETAMINOPHEN 325 MG TAB PO PRN (15:43)
[2021-11-16 15:50] LABS: Mean Corpuscular HGB Conc 29 % (30-34); Mean Corpuscular Volume 78 fl (79-97); Platelet Count 172 K/mm3 (140-440); Red Blood Count 2.08 M/mm3 (3.65-5.03)
[2021-11-16 15:56] LABS: Hematocrit 16.2 % (30.3-42.9); Hemoglobin 4.7 gm/dl (10.1-14.3)
[2021-11-16] MEDS ORDERED: SODIUM CHLORIDE 0.9% 500 ML 500 ML IV NR (16:00)
[2021-11-16 16:03] LABS: Calcium 7.6 mg/dL (8.4-10.2)
--- NOTE | 2021-11-16 16:11 | Event Note ---
Date: 11/16/21 - repeat Hb 4.7 - stool guaiac pending but physical sample consistent with Melena - Hold Lovenox - transfuse 2 units PRBC stat and repeat H&H - begin Protonix drip - GI consult placed - vascular consult for IVC filter
[2021-11-16] MEDS ORDERED: PANTOPRAZOLE 40 MG INJ IV STA (16:14)
[2021-11-16] MEDS: NORepinephrine/NS 8 MG-250 ML 8 MG/250 ML INFUS..BTL IV SCH (16:16)
[2021-11-16 16:39] LABS: Anisocytosis 2+; Basophils % (Manual) 0 % (0.0-1.8); Eosinophils % (Manual) 0 % (0.0-4.3); Hypochromasia 2+; Platelet Clumps Rare; Target Cells 2+; Total Cells Counted 100
[2021-11-16 16:40] LABS: Platelet Estimate Consistent w Auto
[2021-11-16] MEDS: PANTOPRAZOLE 80 MG in SODIUM CHLORIDE 0.9% 100 ML IV SCH (17:30)
[2021-11-16 23:13] LABS: Hematocrit 27.7 % (30.3-42.9); Hemoglobin 8.6 gm/dl (10.1-14.3)
[2021-11-17] MEDS: SENNOSIDES ORAL LIQD 8.8 MG/5 ML ORAL LIQD PO SCH ×3 (01:03→21:56)
[2021-11-17] MEDS: HYDROcodone/ACETAMINOPHEN 10-325MG TAB PO SCH ×4 (01:03→21:55)
[2021-11-17] MEDS: DOCUSATE SODIUM 100 MG/10 ML ORAL LIQD PO SCH ×3 (01:03→21:56)
[2021-11-17] MEDS: FAMOTIDINE 10 MG TAB FEEDTUBE SCH (01:04)
[2021-11-17] MEDS: FREE WATER PO SCH ×7 (01:05→21:56)
[2021-11-17] MEDS: CEFEPIME/NS 1 GM/100 ML 1 GM/100 ML BAG IV SCH ×3 (01:08→17:41)
[2021-11-17] MEDS: INSULIN LISPRO 100 UNIT/ML SUB-Q SCH ×4 (01:16→18:22)
[2021-11-17] MEDS: PANTOPRAZOLE 80 MG in SODIUM CHLORIDE 0.9% 100 ML IV SCH ×2 (05:18→17:39)
[2021-11-17] MEDS: LEVOTHYROXINE 125 MCG TAB PO SCH (05:44)
[2021-11-17] MEDS: FUROSEMIDE 20 MG/2 ML INJ IV SCH (05:45)
[2021-11-17 06:26] LABS: Hematocrit 28.5 % (30.3-42.9); Hemoglobin 8.7 gm/dl (10.1-14.3); Mean Corpuscular HGB Conc 31 % (30-34); Mean Corpuscular Volume 82 fl (79-97); Platelet Count 237 K/mm3 (140-440); Red Blood Count 3.47 M/mm3 (3.65-5.03)
[2021-11-17 06:48] LABS: Albumin 2.2 g/dL (3.9-5); Calcium 7.8 mg/dL (8.4-10.2)
[2021-11-17 07:02] LABS: Red Cell Distribution Width 22.3 % (13.2-15.2)
--- NOTE | 2021-11-17 08:17 | Gastroenterology Consultation ---
History of Present Illness - Reason for Consult Consult date: 11/17/21 GI bleed Requesting physician: CATHERINE HERNANDEZ - History of Present Illness This is a 81-year-old female with known history of diabetes mellitus, hypertension, PPM, and arthritis admitted for sepsis and acute hypoxia respiratory failure 2/2 bilateral pneumonia requiring intubation and ventilatory support She remains intubated and unable to provide a history Hemoglobin went from 6 to 4, then patient got 2 units transfusion blood and hemoglobin went up to 8 Patient has received a total of 4 units over the course of her hospitalization Occult blood positive yesterday Report of dark stool yesterday and today Obtained/updated/reviewed patient's current medications Past History Past Medical History: arthritis, CAD, diabetes, hypertension, hypothyroidism, other (CHB) Past Surgical History: PTCA, Other (PPM). denies: valve replacement, CABG Social history: denies: smoking, alcohol abuse Family history: CAD, cancer, hypertension Medications and Allergies Allergies Allergy/AdvReac Type Severity Reaction Status Date / Time codeine Allergy Unknown Verified 11/04/21 02:20 meperidine HCl [From Demerol] Allergy Unknown Verified 11/04/21 02:21 morphine Allergy Unknown Verified 11/04/21 02:21 Penicillins Allergy Swelling Verified 11/04/21 02:21 Home Medications Medication Instructions Recorded Confirmed Last Taken Type Buspirone HCl [busPIRone] 15 mg PO DAILY 11/04/21 11/04/21 Unknown History Furosemide [Lasix] 40 mg PO QDAY 11/04/21 11/04/21 Unknown History HYDROcodone/APAP 10-325 [[place] 1 each PO Q8HR PRN 11/04/21 11/04/21 Unknown History 10/325] Levothyroxine [Synthroid] 125 mcg PO QAM 11/04/21 11/04/21 Unknown History Loratadine [Allergy Relief] 10 mg PO QDAY PRN 11/04/21 11/04/21 Unknown History Meclizine [Antivert] 12.5 mg PO BID PRN 11/04/21 11/04/21 Unknown History Nitroglycerin [Nitrostat] 0.4 mg SL PRN PRN 11/04/21 11/04/21 Unknown History Omeprazole Magnesium [Prilosec] 20 mg PO QDAY 11/04/21 11/04/21 Unknown History Pravastatin Sodium [Pravastatin] 20 mg PO QHS 11/04/21 11/04/21 Unknown History Prednisone [predniSONE (Rebeca) ER 1 mg PO QDAY 11/04/21 11/04/21 Unknown History TAB] allopurinoL [Zyloprim] 300 mg PO QDAY 11/04/21 11/04/21 Unknown History ondansetron HCL [Zofran] 4 mg PO Q6HR PRN 11/04/21 11/04/21 Unknown History Active Meds: Active Medications Acetaminophen (Acetaminophen 325 Mg Tab) 650 mg PO Q6H PRN PRN Reason: Pain MILD(1-3)/Fever >100.5/RODRIGUEZ Last Admin: 11/16/21 15:43 Dose: 650 mg Hydrocodone Bitart/Acetaminophen (Hydrocodone/Acetaminophen 10-325mg Tab) 1 each PO TID [facility] Stop: 11/20/21 19:59 Last Admin: 11/17/21 07:50 Dose: 1 each Lipase/Protease/Amylase (Lipase 10,500/Protease 25,000/Amylase 43,750 (Units) Dr Lema) 1 each FEEDTUBE PRN PRN PRN Reason: For Clogged Feeding Tube Dextrose (Dextrose 10% *Hypoglycemia) 0 ml IV PRN PRN PRN Reason: Hypoglycemia Docusate Sodium (Docusate Sodium 100 Mg/10 Ml Oral Liqd) 100 mg PO BID [facility] Last Admin: 11/17/21 01:03 Dose: 100 mg Famotidine (Famotidine 10 Mg Tab) 10 mg FEEDTUBE BID [facility] Last Admin: 11/17/21 01:04 Dose: 10 mg Fentanyl (Fentanyl 100 Mcg/2 Ml Inj) 50 mcg IV Q10MIN PRN PRN Reason: ANALGESIA Last Admin: 11/15/21 10:42 Dose: 50 mcg Furosemide (Furosemide 20 Mg/2 Ml Inj) 20 mg IV 0600,1800 [facility] Last Admin: 11/17/21 05:45 Dose: 20 mg Hydrophilic Ointment (Lip Therapy Vaseline) 1 applic TP Q2HR PRN PRN Reason: Dry Lips NORepinephrine/NS 8 MG-250 ML (Norepinephrine/Ns 8 Mg-250 Ml (Double Conc)) 8 mg in 250 mls @ 3.75 mls/hr IV TITRATE YOSSI; Protocol Last Titration: 11/16/21 18:30 Dose: 6 mcg/min, 11.25 mls/hr Vasopressin 20 unit/ Sodium (Chloride) 101 mls @ 9.09 mls/hr IV TITR YOSSI; Protocol Last Admin: 11/06/21 01:00 Dose: 0.03 units/min, 9.09 mls/hr Fentanyl Citrate (Fentanyl Drip Premix) 2,000 mcg in 100 mls @ 3.12 mls/hr IV TITR YOSSI; Protocol Last Titration: 11/15/21 12:00 Dose: Infused Cefepime HCl (Cefepime/Ns 1 Gm/100 Ml) 1 gm in 100 mls @ 200 mls/hr IV Q8H YOSSI; Protocol Last Admin: 11/17/21 07:50 Dose: 200 mls/hr Pantoprazole Sodium 80 mg/ (Sodium Chloride) 100 mls @ 10 mls/hr IV DIRECT YOSSI Last Admin: 11/17/21 05:18 Dose: 8 mg/hr, 10 mls/hr Insulin Human Lispro (Insulin Lispro 100 Unit/Ml) 0 unit SUB-Q Q6HR YOSSI; Protocol Last Admin: 11/17/21 07:59 Dose: Not Given Levothyroxine Sodium (Levothyroxine 125 Mcg Tab) 125 mcg PO DAILY@0600 [facility] Last Admin: 11/17/21 05:44 Dose: 125 mcg Magnesium Hydroxide (Magnesium Hydroxide (Mom) Oral Liqd Udc) 30 ml PO Q4H PRN PRN Reason: Constipation Multi-Ingred Cream/Lotion/Oil/Oint (Mineral Oil/Petrolatum, White Ophth Oint 3.5 Gm) 1 applic OU Q4HR PRN PRN Reason: Dry Eye(s) Ondansetron HCl (Ondansetron 4 Mg/2 Ml Inj) 4 mg IV Q8H PRN PRN Reason: Nausea And Vomiting Last Admin: 11/05/21 15:48 Dose: 4 mg Polyethylene Glycol (Polyethylene Glycol 3350 17 Gm Powder) 17 gm PO QDAY [facility] Last Admin: 11/16/21 11:02 Dose: 17 gm Senna (Sennosides Oral Liqd 8.8 Mg/5 Ml Oral Liqd) 17.6 mg PO Q12HR [facility] Last Admin: 11/17/21 01:03 Dose: 17.6 mg Simple Syrup (Simple Syrup 15 Ml) 15 ml FEEDTUBE PRN PRN PRN Reason: Hypoglycemia Simple Syrup (Simple Syrup 15 Ml) 30 ml FEEDTUBE PRN PRN PRN Reason: Hypoglycemia Sodium Bicarbonate (Sodium Bicarbonate 325 Mg Tab) 325 mg FEEDTUBE PRN PRN PRN Reason: For Clogged Feeding Tube Sodium Chloride (Sodium Chloride 0.9% 10 Ml Flush Syringe) 10 ml IV BID YOSSI Last Admin: 11/17/21 01:06 Dose: 10 ml Sodium Chloride (Sodium Chloride 0.9% 10 Ml Flush Syringe) 10 ml IV PRN PRN PRN Reason: LINE FLUSH Sodium Chloride (Sodium Chloride 0.9% 50 Ml Ivpb) 10 ml IV PRN PRN PRN Reason: FLUSH Last Admin: 11/12/21 17:08 Dose: 10 ml Review of Systems - Review of Systems ROS unobtainable: due to endotracheal tube Exam - Constitutional Vital Signs: Temp Pulse Resp BP Pulse Ox 98.8 F 83 16 117/50 97 11/17/21 04:00 11/17/21 07:15 11/17/21 07:15 11/17/21 07:15 11/17/21 07:15 General appearance: other (Intubated) - EENT Eyes: EOM intact ENT: hearing intact - Neck Neck: supple - Respiratory Respiratory effort: other (On CPAP while intubated) - Cardiovascular Rhythm: regular - Gastrointestinal General gastrointestinal: Present: soft, non-tender Rectal Exam: other (Nurse assisted me in checking patient's stool it is very dark brown) - Integumentary Integumentary: Present: dry - Neurologic Neurological: other (Patient intubated so unable to speak but responding to verbal commands) - Psychiatric Psychiatric: other (Unable to assess as patient is intubated so cannot speak) - Labs CBC & Chem 7: 11/17/21 05:56 11/17/21 05:56 Lab Results: Laboratory Results - last 24 hr 11/16/21 11/16/21 11/16/21 10:00 10:00 11:34 WBC 21.7 H RBC 2.57 L Hgb 6.0 L Hct 20.2 L D MCV 79 MCH 24 L MCHC 30 RDW 26.3 H Plt Count 204 Add Manual Diff Total Counted Seg Neuts % (Manual) Band Neutrophils % Lymphocytes % (Manual) Reactive Lymphs % (Man) Monocytes % (Manual) Eosinophils % (Manual) Basophils % (Manual) Metamyelocytes % Myelocytes % Promyelocytes % Blast Cells % Nucleated RBC % Seg Neutrophils # Man Band Neutrophils # Lymphocytes # (Manual) Abs React Lymphs (Man) Monocytes # (Manual) Eosinophils # (Manual) Basophils # (Manual) Metamyelocytes # Myelocytes # Promyelocytes # Blast Cells # WBC Morphology Hypersegmented Neuts Hyposegmented Neuts Hypogranular Neuts Smudge Cells Toxic Granulation Toxic Vacuolation Dohle Bodies Pelger-Huet Anomaly Irina Rods Platelet Estimate Clumped Platelets Plt Clumps, EDTA Large Platelets Giant Platelets Platelet Satelliting Plt Morphology Comment RBC Morphology Dimorphic RBCs Polychromasia Hypochromasia Poikilocytosis Anisocytosis Microcytosis Macrocytosis Spherocytes Pappenheimer Bodies Sickle Cells Target Cells Tear Drop Cells Ovalocytes Helmet Cells [place]-Gr[place] Bodies Fossil Rings Malcom Cells Bite Cells Crenated Cell Elliptocytes Acanthocytes (Spur) Rouleaux Hemoglobin C Crystals Schistocytes Malaria parasites Godfrey Bodies Hem Pathologist Commnt Sodium 153 H Potassium 3.8 Chloride 114.9 H Carbon Dioxide 26 Anion Gap 16 BUN 74 H Creatinine 0.9 Estimated GFR 60 BUN/Creatinine Ratio 82 Glucose 155 H POC Glucose 131 H Calcium 8.1 L Phosphorus Magnesium Total Bilirubin AST ALT Alkaline Phosphatase Total Protein Albumin Albumin/Globulin Ratio Blood Type Antibody Screen Crossmatch 11/16/21 11/16/21 11/16/21 14:00 15:25 15:25 WBC 17.2 H RBC 2.08 L Hgb 4.7 L* Hct 16.2 L* MCV 78 L MCH 23 L MCHC 29 L RDW 26.0 H Plt Count 172 Add Manual Diff Complete Total Counted 100 Seg Neuts % (Manual) 87.0 H Band Neutrophils % 0 Lymphocytes % (Manual) 8.0 L Reactive Lymphs % (Man) 0 Monocytes % (Manual) 5.0 Eosinophils % (Manual) 0 Basophils % (Manual) 0 Metamyelocytes % 0 Myelocytes % 0 Promyelocytes % 0 Blast Cells % 0 Nucleated RBC % Not Reportable Seg Neutrophils # Man 15.0 H Band Neutrophils # 0.0 Lymphocytes # (Manual) 1.4 Abs React Lymphs (Man) 0.0 Monocytes # (Manual) 0.9 H Eosinophils # (Manual) 0.0 Basophils # (Manual) 0.0 Metamyelocytes # 0.0 Myelocytes # 0.0 Promyelocytes # 0.0 Blast Cells # 0.0 WBC Morphology Not Reportable Hypersegmented Neuts Not Reportable Hyposegmented Neuts Not Reportable Hypogranular Neuts Not Reportable Smudge Cells Not Reportable Toxic Granulation Not Reportable Toxic Vacuolation Not Reportable Dohle Bodies Not Reportable Pelger-Huet Anomaly Not Reportable Irina Rods Not Reportable Platelet Estimate Consistent w auto Clumped Platelets Rare Plt Clumps, EDTA Not Reportable Large Platelets Not Reportable Giant Platelets Not Reportable Platelet Satelliting Not Reportable Plt Morphology Comment Not Reportable RBC Morphology Not Reportable Dimorphic RBCs Not Reportable Polychromasia Not Reportable Hypochromasia 2+ Poikilocytosis Not Reportable Anisocytosis 2+ Microcytosis Not Reportable Macrocytosis Not Reportable Spherocytes Not Reportable Pappenheimer Bodies Not Reportable Sickle Cells Not Reportable Target Cells 2+ Tear Drop Cells Not Reportable Ovalocytes Not Reportable Helmet Cells Not Reportable [place] Bodies Not Reportable Fossil Rings Not Reportable Malcom Cells Not Reportable Bite Cells Not Reportable Crenated Cell Not Reportable Elliptocytes Not Reportable Acanthocytes (Spur) Not Reportable Rouleaux Not Reportable Hemoglobin C Crystals Not Reportable Schistocytes Not Reportable Malaria parasites Not Reportable Godfrey Bodies Not Reportable Hem Pathologist Commnt No Sodium 148 H Potassium 3.8 Chloride 113.2 H Carbon Dioxide 26 Anion Gap 13 BUN 84 H Creatinine 1.0 Estimated GFR 53 BUN/Creatinine Ratio 84 Glucose 164 H POC Glucose Calcium 7.6 L Phosphorus Magnesium Total Bilirubin AST ALT Alkaline Phosphatase Total Protein Albumin Albumin/Globulin Ratio Blood Type O POSITIVE Antibody Screen Negative Crossmatch See Detail 11/16/21 11/16/21 11/16/21 17:21 22:43 23:07 WBC RBC Hgb 8.6 L D Hct 27.7 L D MCV MCH MCHC RDW Plt Count Add Manual Diff Total Counted Seg Neuts % (Manual) Band Neutrophils % Lymphocytes % (Manual) Reactive Lymphs % (Man) Monocytes % (Manual) Eosinophils % (Manual) Basophils % (Manual) Metamyelocytes % Myelocytes % Promyelocytes % Blast Cells % Nucleated RBC % Seg Neutrophils # Man Band Neutrophils # Lymphocytes # (Manual) Abs React Lymphs (Man) Monocytes # (Manual) Eosinophils # (Manual) Basophils # (Manual) Metamyelocytes # Myelocytes # Promyelocytes # Blast Cells # WBC Morphology Hypersegmented Neuts Hyposegmented Neuts Hypogranular Neuts Smudge Cells Toxic Granulation Toxic Vacuolation Dohle Bodies Pelger-Huet Anomaly Irina Rods Platelet Estimate Clumped Platelets Plt Clumps, EDTA Large Platelets Giant Platelets Platelet Satelliting Plt Morphology Comment RBC Morphology Dimorphic RBCs Polychromasia Hypochromasia Poikilocytosis Anisocytosis Microcytosis Macrocytosis Spherocytes Pappenheimer Bodies Sickle Cells Target Cells Tear Drop Cells Ovalocytes Helmet Cells [place]-Granger Bodies Fossil Rings Malcom Cells Bite Cells Crenated Cell Elliptocytes Acanthocytes (Spur) Rouleaux Hemoglobin C Crystals Schistocytes Malaria parasites Godfrey Bodies Hem Pathologist Commnt Sodium Potassium Chloride Carbon Dioxide Anion Gap BUN Creatinine Estimated GFR BUN/Creatinine Ratio Glucose POC Glucose 124 H 128 H Calcium Phosphorus Magnesium Total Bilirubin AST ALT Alkaline Phosphatase Total Protein Albumin Albumin/Globulin Ratio Blood Type Antibody Screen Crossmatch 11/17/21 11/17/21 11/17/21 05:33 05:56 05:56 WBC 25.1 H RBC 3.47 L Hgb 8.7 L Hct 28.5 L MCV 82 MCH 25 L MCHC 31 RDW 22.3 H Plt Count 237 Add Manual Diff Total Counted Seg Neuts % (Manual) Band Neutrophils % Lymphocytes % (Manual) Reactive Lymphs % (Man) Monocytes % (Manual) Eosinophils % (Manual) Basophils % (Manual) Metamyelocytes % Myelocytes % Promyelocytes % Blast Cells % Nucleated RBC % Seg Neutrophils # Man Band Neutrophils # Lymphocytes # (Manual) Abs React Lymphs (Man) Monocytes # (Manual) Eosinophils # (Manual) Basophils # (Manual) Metamyelocytes # Myelocytes # Promyelocytes # Blast Cells # WBC Morphology Hypersegmented Neuts Hyposegmented Neuts Hypogranular Neuts Smudge Cells Toxic Granulation Toxic Vacuolation Dohle Bodies Pelger-Huet Anomaly Irina Rods Platelet Estimate Clumped Platelets Plt Clumps, EDTA Large Platelets Giant Platelets Platelet Satelliting Plt Morphology Comment RBC Morphology Dimorphic RBCs Polychromasia Hypochromasia Poikilocytosis Anisocytosis Microcytosis Macrocytosis Spherocytes Pappenheimer Bodies Sickle Cells Target Cells Tear Drop Cells Ovalocytes Helmet Cells [place]-Granger Bodies Fossil Rings [place] Cells Bite Cells Crenated Cell Elliptocytes Acanthocytes (Spur) Rouleaux Hemoglobin C Crystals Schistocytes Malaria parasites Godfrey Bodies Hem Pathologist Commnt Sodium 151 H Potassium 3.8 Chloride 113.6 H Carbon Dioxide 25 Anion Gap 16 BUN 85 H Creatinine 1.0 Estimated GFR 53 BUN/Creatinine Ratio 85 Glucose 132 H POC Glucose 133 H Calcium 7.8 L Phosphorus 2.90 Magnesium 1.90 Total Bilirubin 0.50 AST 36 ALT 47 Alkaline Phosphatase 107 Total Protein 5.1 L Albumin 2.2 L Albumin/Globulin Ratio 0.8 Blood Type Antibody Screen Crossmatch Assessment and Plan Patient without jocelyn melena on my exam Hemoglobin has been very low this entire hospitalization with intermittent blood transfusions required Patient clinically does not appear to be having an active GI bleed based upon my exam and reviewing the labs Therefore recommend continue PPI drip and monitor clinically however unclear th at the benefits of endoscopy would outweigh the risks at this juncture However if patient has overt GI bleeding with concomitant significant sudden drop in hemoglobin please call me so I can reassess for an EGD - Patient Problems (1) Anemia Current Visit: Yes Status: Acute (2) Occult blood positive stool Current Visit: Yes Status: Acute
[2021-11-17] MEDS: POLYETHYLENE GLYCOL 3350 17 GM POWDER PO SCH (09:41)
--- NOTE | 2021-11-17 10:54 | Progress Note ---
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 (Discussed care plan at length with her and daughter over the phone and answered all their questions; they alsdo mention she takes Lortabs 10 4 times daily religiously for chronic pain) - place 25 nicole's/hr Fentanyl patch - resume IV Fentanyl drip meantime - keep NPO - continue Protonix drip - further directive's per G.I. team recommendations - resume full support via AC mode - trend H&H - tentatively for IVC filter placement - hold Lasix re: Azotemia - discontinue Sánchez catheter - D5W @ 100 mls/hr X 3 liters re: Hypernatremia - prn Levophed for target MAP > 65 mmHg - continue care as below otherwise; - Daily SAT and SBT assessment as tolerated - continue to wean supplemental oxygen for target O2 sat's > 90% acutely - VAP bundle addressed - continue lung protective strategies - continue bronchodilators with pulmonary hygiene per RT - wean per pulmonary driven protocols otherwise - avoid nephrotoxins, renally dose all medications - continue accuchecks with glycemic control per SSI (While critically ill target blood glucose of 140-180 mg/dL; avoid hypoglycemia) - sedation prn for target RASS 0 to -1 - antibiotics per ID recommendations - continue to avoid benzodiazepine's, reduce the possibility of delirium - prn analgesia per CPOT score - Maintenance of sleep-wake cycle, avoid delirium - continue enteral nutritional support at goal rate as tolerated - G.I. & VTE prophylaxis - PT/OT/ROM exercises - continue mobility protocols for pressure ulcer prophylaxis - Monitor hemodynamics closely - continue other care per attending / other consultants - discharge planning ongoing concurrently COVID SPECIFIC INTERVENTIONS - COVID-19 PCR negative .... Re-evaluate in am & prn CONDITION: CRITICAL PROGNOSIS: GUARDED CODE STATUS: FULL CODE The high probability of a clinically significant, sudden or life-threatening deterioration of the [respiratory, cardiovascular & neurologic] system(s) required my full and direct attention, intervention and personal management. The aggregate critical care time was [36] minutes without overlap. Time includes spent on; [x] Data Review and interpretation [x] Patient assessment and monitoring of vital signs [x] Documentation [x] Medication orders and management Subjective Date of service: 11/17/21 Principal diagnosis: Septic shock; AHRF; Anemia; Pneumonia; L. pleural effusion; HFrEF; Pulm HTN Interval history: Patient is seen today for: Septic shock; Acute hypoxemic respiratory failure; Anemia; Bilateral pneumonia; Left pleural effusion; HFrEF 30-35%; Pulm HTN RVSP 49 Seen and examined at bedside; 24hour events reviewed; nursing and respiratory care staff consulted; no adverse overnight events reported to me; resting in bed; remains on MVS; serum Hb up to 8.6 s/p 2 units PRBC's (unlikely baseline 4.7 was correct); stool guaiac was positive and seen by GI as well as vascular team; she is alert and grimacing to pain issues Objective Vital Signs - 12hr 11/16/21 11/16/21 11/16/21 23:00 23:15 23:30 Temperature Pulse Rate 77 77 76 Pulse Rate [ From Monitor] Respiratory 17 20 17 Rate Blood Pressure 112/47 107/45 104/45 O2 Sat by Pulse 100 100 100 Oximetry 11/16/21 11/16/21 11/17/21 23:42 23:45 00:00 Temperature 98.5 F Pulse Rate 79 76 Pulse Rate [ 77 From Monitor] Respiratory 13 17 Rate Blood Pressure 114/53 109/50 O2 Sat by Pulse 100 100 Oximetry 11/17/21 11/17/21 11/17/21 00:15 00:30 00:45 Temperature Pulse Rate 76 77 75 Pulse Rate [ From Monitor] Respiratory 20 21 13 Rate Blood Pressure 107/46 112/49 104/47 O2 Sat by Pulse 100 100 100 Oximetry 11/17/21 11/17/21 11/17/21 01:00 01:15 01:30 Temperature Pulse Rate 77 77 75 Pulse Rate [ From Monitor] Respiratory 19 17 18 Rate Blood Pressure 112/49 108/47 108/45 O2 Sat by Pulse 100 100 99 Oximetry 11/17/21 11/17/21 11/17/21 01:45 02:00 02:15 Temperature Pulse Rate 75 74 75 Pulse Rate [ From Monitor] Respiratory 18 17 18 Rate Blood Pressure 98/41 105/47 103/45 O2 Sat by Pulse 100 100 99 Oximetry 11/17/21 11/17/21 11/17/21 02:30 02:45 03:00 Temperature Pulse Rate 75 75 75 Pulse Rate [ From Monitor] Respiratory 21 20 18 Rate Blood Pressure 100/42 101/44 106/46 O2 Sat by Pulse 99 99 98 Oximetry 11/17/21 11/17/21 11/17/21 03:15 03:30 03:45 Temperature Pulse Rate 75 74 74 Pulse Rate [ From Monitor] Respiratory 22 18 20 Rate Blood Pressure 102/47 111/47 98/45 O2 Sat by Pulse 99 99 99 Oximetry 11/17/21 11/17/21 11/17/21 04:00 04:01 04:15 Temperature 98.8 F Pulse Rate 81 76 77 Pulse Rate [ 78 From Monitor] Respiratory 21 16 Rate Blood Pressure 109/50 107/54 O2 Sat by Pulse 100 99 Oximetry 11/17/21 11/17/21 11/17/21 04:30 04:45 05:00 Temperature Pulse Rate 75 76 84 Pulse Rate [ From Monitor] Respiratory 21 19 12 Rate Blood Pressure 99/45 113/53 113/53 O2 Sat by Pulse 97 97 100 Oximetry 11/17/21 11/17/21 11/17/21 05:15 05:30 05:45 Temperature Pulse Rate 82 85 85 Pulse Rate [ From Monitor] Respiratory 22 18 15 Rate Blood Pressure 130/57 132/64 141/63 O2 Sat by Pulse 98 98 98 Oximetry 11/17/21 11/17/21 11/17/21 06:00 06:15 06:30 Temperature Pulse Rate 81 82 89 Pulse Rate [ From Monitor] Respiratory 17 19 21 Rate Blood Pressure 141/63 125/59 146/75 O2 Sat by Pulse 97 97 98 Oximetry 11/17/21 11/17/21 11/17/21 06:45 07:00 07:15 Temperature Pulse Rate 89 90 83 Pulse Rate [ From Monitor] Respiratory 29 H 20 16 Rate Blood Pressure 144/81 151/92 117/50 O2 Sat by Pulse 98 97 97 Oximetry 11/17/21 11/17/21 11/17/21 07:30 07:45 08:00 Temperature 99.9 F H Pulse Rate 79 87 95 H Pulse Rate [ 89 From Monitor] Respiratory 14 13 16 Rate Blood Pressure 104/49 139/57 148/58 O2 Sat by Pulse 97 97 99 Oximetry 11/17/21 11/17/21 11/17/21 08:15 08:30 08:45 Temperature Pulse Rate 80 79 78 Pulse Rate [ From Monitor] Respiratory 17 19 18 Rate Blood Pressure 108/49 84/39 123/55 O2 Sat by Pulse 97 98 99 Oximetry 11/17/21 11/17/21 11/17/21 09:00 09:15 09:17 Temperature Pulse Rate 78 78 82 Pulse Rate [ From Monitor] Respiratory 15 18 21 Rate Blood Pressure 119/60 128/55 128/55 O2 Sat by Pulse 99 99 99 Oximetry 11/17/21 11/17/21 11/17/21 09:31 09:45 09:56 Temperature Pulse Rate 92 H 92 H 82 Pulse Rate [ From Monitor] Respiratory 33 H 37 H Rate Blood Pressure 149/65 148/68 148/68 O2 Sat by Pulse 99 99 98 Oximetry 11/17/21 11/17/21 10:00 10:15 Temperature Pulse Rate 84 80 Pulse Rate [ From Monitor] Respiratory 16 15 Rate Blood Pressure 103/49 120/53 O2 Sat by Pulse 98 98 Oximetry Constitutional: appears uncomfortable, other (ETT to MVS, frail elderly woman with mildly increased respiratory effort at rest) Eyes: non-icteric ENT: oropharynx moist, oropharyngeal exudate pre (clear frothy), other (ETT 23 cm ELIZABETH) Neck: supple, no lymphadenopathy, no JVD Effort: normal, mildly labored Ascultation: Bilateral: diminished breath sounds, rhonchi Percussion: Bilateral: not dull Cardiovascular: regular rate and rhythm, other (S1,S2) Gastrointestinal: normoactive bowel sounds, soft, non-tender, non-distended Integumentary: normal Extremities: no edema, pink and warm, pulses normal, edema (trace) Neurologic: non-focal exam (grossly), pupils equal and round, CN II-XII normal, other (sedated) Psychiatric: mood appropriate, anxious CBC and BMP: 11/17/21 05:56 11/17/21 05:56 ABG, PT/INR, D-dimer: ABG ABG pH 7.407 pH Units (7.350-7.450) 11/14/21 16:14 ABG pCO2 45.6 mm Hg 11/14/21 16:14 ABG pO2 80.6 mm Hg (80.0-90.0) 11/14/21 16:14 ABG O2 Saturation 97.0 % (95.0-99.0) 11/14/21 16:14 PT/INR, D-dimer PT 18.6 Sec. (12.2-14.9) H 11/03/21 22:32 INR 1.40 (0.87-1.13) H 11/03/21 22:32 D-Dimer 2655.00 ng/mlDDU (0-234) H 11/11/21 04:28 Abnormal lab findings: Abnormal Labs 11/03/21 11/03/21 11/03/21 22:32 22:32 22:32 WBC 29.3 H RBC 2.93 L Hgb 6.1 L Hct 21.9 L MCV 75 L MCH 21 L MCHC 28 L RDW 19.7 H Plt Count Seg Neuts % (Manual) 97.0 H Lymphocytes % (Manual) 3.0 L Seg Neutrophils # Man 28.4 H Lymphocytes # (Manual) 0.9 L Monocytes # (Manual) PT 18.6 H INR 1.40 H D-Dimer ABG pH ABG pO2 ABG HCO3 ABG O2 Saturation ABG Base Excess ABG Hemoglobin Oxyhemoglobin Sodium Potassium Chloride Carbon Dioxide 20 L BUN 33 H Glucose 119 H POC Glucose Lactic Acid Calcium 8.3 L Phosphorus Magnesium AST ALT Alkaline Phosphatase Lactate Dehydrogenase Troponin T 0.035 H C-Reactive Protein NT-Pro-B Natriuret Pep Total Protein Albumin LDL Cholesterol Direct 34 L Vitamin B12 Crossmatch 11/03/21 11/03/21 11/03/21 22:32 22:32 23:57 WBC RBC Hgb Hct MCV MCH MCHC RDW Plt Count Seg Neuts % (Manual) Lymphocytes % (Manual) Seg Neutrophils # Man Lymphocytes # (Manual) Monocytes # (Manual) PT INR D-Dimer ABG pH ABG pO2 ABG HCO3 ABG O2 Saturation ABG Base Excess ABG Hemoglobin Oxyhemoglobin Sodium Potassium Chloride Carbon Dioxide BUN Glucose POC Glucose Lactic Acid 3.70 H* Calcium Phosphorus Magnesium AST ALT Alkaline Phosphatase 139 H Lactate Dehydrogenase Troponin T C-Reactive Protein NT-Pro-B Natriuret Pep 7895 H Total Protein Albumin 3.5 L LDL Cholesterol Direct Vitamin B12 Crossmatch See Detail 11/04/21 11/04/21 11/05/21 00:59 13:58 00:51 WBC 27.9 H RBC 3.28 L Hgb 7.3 L Hct 25.5 L MCV 78 L MCH 22 L MCHC 29 L RDW 19.1 H Plt Count Seg Neuts % (Manual) 96.0 H Lymphocytes % (Manual) 2.0 L Seg Neutrophils # Man 26.8 H Lymphocytes # (Manual) 0.6 L Monocytes # (Manual) PT INR D-Dimer ABG pH ABG pO2 ABG HCO3 ABG O2 Saturation ABG Base Excess ABG Hemoglobin Oxyhemoglobin Sodium Potassium Chloride Carbon Dioxide BUN Glucose POC Glucose Lactic Acid Calcium Phosphorus Magnesium AST ALT Alkaline Phosphatase Lactate Dehydrogenase Troponin T 0.051 H D 0.032 H D C-Reactive Protein NT-Pro-B Natriuret Pep Total Protein Albumin LDL Cholesterol Direct Vitamin B12 Crossmatch 11/05/21 11/05/21 11/05/21 06:11 06:11 06:11 WBC 31.8 H RBC 3.57 L Hgb 8.0 L Hct 27.7 L MCV 78 L MCH 22 L MCHC 29 L RDW 19.2 H Plt Count Seg Neuts % (Manual) 91.0 H Lymphocytes % (Manual) 4.5 L Seg Neutrophils # Man 28.9 H Lymphocytes # (Manual) Monocytes # (Manual) 1.1 H PT INR D-Dimer 1494.53 H ABG pH ABG pO2 ABG HCO3 ABG O2 Saturation ABG Base Excess ABG Hemoglobin Oxyhemoglobin Sodium Potassium Chloride Carbon Dioxide 19 L BUN 42 H Glucose 115 H POC Glucose Lactic Acid Calcium Phosphorus Magnesium AST 43 H ALT Alkaline Phosphatase Lactate Dehydrogenase 187 H Troponin T C-Reactive Protein 22.20 H NT-Pro-B Natriuret Pep Total Protein 6.0 L Albumin 3.2 L LDL Cholesterol Direct Vitamin B12 Crossmatch 11/05/21 11/05/21 11/06/21 06:11 12:15 00:30 WBC RBC Hgb Hct MCV MCH MCHC RDW Plt Count Seg Neuts % (Manual) Lymphocytes % (Manual) Seg Neutrophils # Man Lymphocytes # (Manual) Monocytes # (Manual) PT INR D-Dimer ABG pH ABG pO2 ABG HCO3 ABG O2 Saturation ABG Base Excess ABG Hemoglobin Oxyhemoglobin Sodium Potassium Chloride Carbon Dioxide BUN Glucose POC Glucose 113 H 69 L Lactic Acid Calcium Phosphorus Magnesium AST ALT Alkaline Phosphatase Lactate Dehydrogenase Troponin T 0.033 H C-Reactive Protein NT-Pro-B Natriuret Pep Total Protein Albumin LDL Cholesterol Direct Vitamin B12 Crossmatch 11/06/21 11/06/21 11/06/21 05:50 15:50 15:50 WBC 25.5 H RBC 3.62 L Hgb 8.0 L Hct 27.5 L MCV 76 L MCH 22 L MCHC 29 L RDW 19.6 H Plt Count Seg Neuts % (Manual) 92.0 H Lymphocytes % (Manual) 5.0 L Seg Neutrophils # Man 23.5 H Lymphocytes # (Manual) Monocytes # (Manual) PT INR D-Dimer ABG pH 7.305 L ABG pO2 ABG HCO3 15.8 L ABG O2 Saturation ABG Base Excess -9.6 L ABG Hemoglobin 8.6 L Oxyhemoglobin 94.6 L Sodium Potassium Chloride 113.9 H Carbon Dioxide 17 L BUN 56 H Glucose 114 H POC Glucose Lactic Acid Calcium 7.9 L Phosphorus Magnesium AST 1410 H ALT 934 H Alkaline Phosphatase 142 H Lactate Dehydrogenase Troponin T C-Reactive Protein NT-Pro-B Natriuret Pep Total Protein 5.0 L Albumin 2.6 L LDL Cholesterol Direct Vitamin B12 Crossmatch 11/07/21 11/07/21 11/07/21 03:30 04:50 08:07 WBC RBC Hgb Hct MCV MCH MCHC RDW Plt Count Seg Neuts % (Manual) Lymphocytes % (Manual) Seg Neutrophils # Man Lymphocytes # (Manual) Monocytes # (Manual) PT INR D-Dimer ABG pH ABG pO2 296.9 H ABG HCO3 18.1 L ABG O2 Saturation 99.5 H ABG Base Excess -5.9 L ABG Hemoglobin 7.6 L Oxyhemoglobin Sodium Potassium Chloride Carbon Dioxide BUN Glucose POC Glucose 106 H 108 H Lactic Acid Calcium Phosphorus Magnesium AST ALT Alkaline Phosphatase Lactate Dehydrogenase Troponin T C-Reactive Protein NT-Pro-B Natriuret Pep Total Protein Albumin LDL Cholesterol Direct Vitamin B12 Crossmatch 11/08/21 11/08/21 11/08/21 03:10 18:05 23:43 WBC RBC Hgb Hct MCV MCH MCHC RDW Plt Count Seg Neuts % (Manual) Lymphocytes % (Manual) Seg Neutrophils # Man Lymphocytes # (Manual) Monocytes # (Manual) PT INR D-Dimer ABG pH ABG pO2 127.4 H ABG HCO3 ABG O2 Saturation ABG Base Excess -3.4 L ABG Hemoglobin 7.4 L Oxyhemoglobin Sodium Potassium Chloride Carbon Dioxide BUN Glucose POC Glucose 113 H 141 H Lactic Acid Calcium Phosphorus Magnesium AST ALT Alkaline Phosphatase Lactate Dehydrogenase Troponin T C-Reactive Protein NT-Pro-B Natriuret Pep Total Protein Albumin LDL Cholesterol Direct Vitamin B12 Crossmatch 11/08/21 11/08/21 11/09/21 Unknown Unknown 02:00 WBC 14.5 H RBC 3.35 L Hgb 7.5 L 8.1 L Hct 25.4 L 27.6 L MCV 76 L 76 L MCH 23 L 22 L MCHC RDW 19.9 H 19.9 H Plt Count Seg Neuts % (Manual) Lymphocytes % (Manual) Seg Neutrophils # Man Lymphocytes # (Manual) Monocytes # (Manual) PT INR D-Dimer ABG pH ABG pO2 ABG HCO3 ABG O2 Saturation ABG Base Excess ABG Hemoglobin Oxyhemoglobin Sodium 154 H D Potassium 3.3 L Chloride 120.7 H Carbon Dioxide 20 L BUN 38 H Glucose POC Glucose Lactic Acid Calcium 8.3 L Phosphorus Magnesium AST ALT Alkaline Phosphatase Lactate Dehydrogenase Troponin T C-Reactive Protein NT-Pro-B Natriuret Pep Total Protein Albumin LDL Cholesterol Direct Vitamin B12 Crossmatch 11/09/21 11/09/21 11/09/21 02:00 02:31 05:12 WBC RBC Hgb Hct MCV MCH MCHC RDW Plt Count Seg Neuts % (Manual) Lymphocytes % (Manual) Seg Neutrophils # Man Lymphocytes # (Manual) Monocytes # (Manual) PT INR D-Dimer ABG pH 7.479 H ABG pO2 121.3 H ABG HCO3 ABG O2 Saturation ABG Base Excess ABG Hemoglobin 7.3 L Oxyhemoglobin Sodium Potassium Chloride 112.5 H Carbon Dioxide BUN 33 H Glucose 161 H POC Glucose 135 H Lactic Acid Calcium Phosphorus Magnesium AST 251 H ALT 481 H Alkaline Phosphatase Lactate Dehydrogenase Troponin T C-Reactive Protein NT-Pro-B Natriuret Pep Total Protein 5.0 L Albumin 2.8 L LDL Cholesterol Direct Vitamin B12 Crossmatch 11/09/21 11/09/21 11/09/21 11:33 16:32 23:28 WBC RBC Hgb Hct MCV MCH MCHC RDW Plt Count Seg Neuts % (Manual) Lymphocytes % (Manual) Seg Neutrophils # Man Lymphocytes # (Manual) Monocytes # (Manual) PT INR D-Dimer ABG pH ABG pO2 ABG HCO3 ABG O2 Saturation ABG Base Excess ABG Hemoglobin Oxyhemoglobin Sodium Potassium Chloride Carbon Dioxide BUN Glucose POC Glucose 132 H 133 H 143 H Lactic Acid Calcium Phosphorus Magnesium AST ALT Alkaline Phosphatase Lactate Dehydrogenase Troponin T C-Reactive Protein NT-Pro-B Natriuret Pep Total Protein Albumin LDL Cholesterol Direct Vitamin B12 Crossmatch 11/10/21 11/10/21 11/10/21 04:00 04:00 05:35 WBC 16.0 H RBC 3.61 L Hgb 8.0 L Hct 27.1 L MCV 75 L MCH 22 L MCHC RDW 20.4 H Plt Count Seg Neuts % (Manual) Lymphocytes % (Manual) Seg Neutrophils # Man Lymphocytes # (Manual) Monocytes # (Manual) PT INR D-Dimer ABG pH ABG pO2 ABG HCO3 ABG O2 Saturation ABG Base Excess ABG Hemoglobin Oxyhemoglobin Sodium 149 H Potassium Chloride 114.1 H Carbon Dioxide BUN 31 H Glucose 148 H POC Glucose 132 H Lactic Acid Calcium 8.2 L Phosphorus Magnesium AST ALT Alkaline Phosphatase Lactate Dehydrogenase Troponin T C-Reactive Protein NT-Pro-B Natriuret Pep Total Protein Albumin LDL Cholesterol Direct Vitamin B12 Crossmatch 11/10/21 11/10/21 11/10/21 11:31 14:08 15:35 WBC RBC Hgb Hct MCV MCH MCHC RDW Plt Count Seg Neuts % (Manual) Lymphocytes % (Manual) Seg Neutrophils # Man Lymphocytes # (Manual) Monocytes # (Manual) PT INR D-Dimer ABG pH ABG pO2 126.6 H ABG HCO3 ABG O2 Saturation ABG Base Excess ABG Hemoglobin 7.4 L Oxyhemoglobin Sodium Potassium Chloride Carbon Dioxide BUN Glucose POC Glucose 147 H Lactic Acid Calcium Phosphorus Magnesium AST ALT Alkaline Phosphatase Lactate Dehydrogenase Troponin T C-Reactive Protein NT-Pro-B Natriuret Pep Total Protein Albumin LDL Cholesterol Direct Vitamin B12 1823 H Crossmatch 11/10/21 11/11/21 11/11/21 17:53 00:55 04:28 WBC RBC Hgb Hct MCV MCH MCHC RDW Plt Count Seg Neuts % (Manual) Lymphocytes % (Manual) Seg Neutrophils # Man Lymphocytes # (Manual) Monocytes # (Manual) PT INR D-Dimer ABG pH ABG pO2 ABG HCO3 ABG O2 Saturation ABG Base Excess ABG Hemoglobin Oxyhemoglobin Sodium 149 H Potassium Chloride 112.2 H Carbon Dioxide BUN 34 H Glucose 148 H POC Glucose 140 H 145 H Lactic Acid Calcium 7.9 L Phosphorus Magnesium AST 53 H ALT 203 H Alkaline Phosphatase Lactate Dehydrogenase Troponin T C-Reactive Protein NT-Pro-B Natriuret Pep Total Protein 4.9 L Albumin 2.6 L LDL Cholesterol Direct Vitamin B12 Crossmatch 11/11/21 11/11/21 11/11/21 04:28 04:28 05:28 WBC 20.9 H RBC 3.47 L Hgb 7.5 L Hct 26.0 L MCV 75 L MCH 22 L MCHC 29 L RDW 21.6 H Plt Count 132 L Seg Neuts % (Manual) Lymphocytes % (Manual) Seg Neutrophils # Man Lymphocytes # (Manual) Monocytes # (Manual) PT INR D-Dimer 2655.00 H ABG pH ABG pO2 ABG HCO3 ABG O2 Saturation ABG Base Excess ABG Hemoglobin Oxyhemoglobin Sodium Potassium Chloride Carbon Dioxide BUN Glucose POC Glucose 154 H Lactic Acid Calcium Phosphorus Magnesium AST ALT Alkaline Phosphatase Lactate Dehydrogenase Troponin T C-Reactive Protein NT-Pro-B Natriuret Pep Total Protein Albumin LDL Cholesterol Direct Vitamin B12 Crossmatch 11/11/21 11/11/21 11/12/21 12:38 18:13 00:14 WBC RBC Hgb Hct MCV MCH MCHC RDW Plt Count Seg Neuts % (Manual) Lymphocytes % (Manual) Seg Neutrophils # Man Lymphocytes # (Manual) Monocytes # (Manual) PT INR D-Dimer ABG pH ABG pO2 ABG HCO3 ABG O2 Saturation ABG Base Excess ABG Hemoglobin Oxyhemoglobin Sodium Potassium Chloride Carbon Dioxide BUN Glucose POC Glucose 137 H 108 H 137 H Lactic Acid Calcium Phosphorus Magnesium AST ALT Alkaline Phosphatase Lactate Dehydrogenase Troponin T C-Reactive Protein NT-Pro-B Natriuret Pep Total Protein Albumin LDL Cholesterol Direct Vitamin B12 Crossmatch 11/12/21 11/12/21 11/12/21 05:40 06:24 11:12 WBC RBC Hgb Hct MCV MCH MCHC RDW Plt Count Seg Neuts % (Manual) Lymphocytes % (Manual) Seg Neutrophils # Man Lymphocytes # (Manual) Monocytes # (Manual) PT INR D-Dimer ABG pH 7.586 H ABG pO2 150.6 H ABG HCO3 27.2 H ABG O2 Saturation 99.1 H ABG Base Excess 5.2 H ABG Hemoglobin 7.5 L Oxyhemoglobin Sodium Potassium Chloride Carbon Dioxide BUN Glucose POC Glucose 132 H 140 H Lactic Acid Calcium Phosphorus Magnesium AST ALT Alkaline Phosphatase Lactate Dehydrogenase Troponin T C-Reactive Protein NT-Pro-B Natriuret Pep Total Protein Albumin LDL Cholesterol Direct Vitamin B12 Crossmatch 11/12/21 11/12/21 11/12/21 14:50 14:50 17:13 WBC 19.8 H RBC 3.27 L Hgb 7.1 L Hct 24.5 L MCV 75 L MCH 22 L MCHC 29 L RDW 22.3 H Plt Count Seg Neuts % (Manual) Lymphocytes % (Manual) Seg Neutrophils # Man Lymphocytes # (Manual) Monocytes # (Manual) PT INR D-Dimer ABG pH ABG pO2 ABG HCO3 ABG O2 Saturation ABG Base Excess ABG Hemoglobin Oxyhemoglobin Sodium 150 H Potassium 3.3 L Chloride 112.0 H Carbon Dioxide BUN 40 H Glucose 151 H POC Glucose 121 H Lactic Acid Calcium 7.4 L Phosphorus 1.70 L Magnesium 1.40 L AST ALT Alkaline Phosphatase Lactate Dehydrogenase Troponin T C-Reactive Protein NT-Pro-B Natriuret Pep Total Protein Albumin LDL Cholesterol Direct Vitamin B12 Crossmatch 11/12/21 11/13/21 11/13/21 23:19 05:34 06:30 WBC RBC Hgb Hct MCV MCH MCHC RDW Plt Count Seg Neuts % (Manual) Lymphocytes % (Manual) Seg Neutrophils # Man Lymphocytes # (Manual) Monocytes # (Manual) PT INR D-Dimer ABG pH ABG pO2 ABG HCO3 ABG O2 Saturation ABG Base Excess ABG Hemoglobin Oxyhemoglobin Sodium 149 H Potassium Chloride 60.0 L Carbon Dioxide BUN 40 H Glucose 146 H POC Glucose 113 H 132 H Lactic Acid Calcium 7.3 L Phosphorus Magnesium 2.40 H AST ALT 72 H Alkaline Phosphatase Lactate Dehydrogenase Troponin T C-Reactive Protein NT-Pro-B Natriuret Pep Total Protein 5.2 L Albumin 2.2 L LDL Cholesterol Direct Vitamin B12 Crossmatch 11/13/21 11/13/21 11/13/21 06:30 08:30 11:19 WBC 21.2 H RBC 3.12 L Hgb 6.8 L Hct 23.2 L MCV 74 L MCH 22 L MCHC 29 L RDW 22.2 H Plt Count 135 L Seg Neuts % (Manual) Lymphocytes % (Manual) Seg Neutrophils # Man Lymphocytes # (Manual) Monocytes # (Manual) PT INR D-Dimer ABG pH ABG pO2 ABG HCO3 ABG O2 Saturation ABG Base Excess ABG Hemoglobin Oxyhemoglobin Sodium Potassium Chloride Carbon Dioxide BUN Glucose POC Glucose 136 H Lactic Acid Calcium Phosphorus Magnesium AST ALT Alkaline Phosphatase Lactate Dehydrogenase Troponin T C-Reactive Protein NT-Pro-B Natriuret Pep Total Protein Albumin LDL Cholesterol Direct Vitamin B12 Crossmatch See Detail 11/13/21 11/14/21 11/14/21 18:21 00:01 04:46 WBC 20.0 H RBC 3.41 L Hgb 7.9 L Hct 26.8 L MCV MCH 23 L MCHC 29 L RDW 24.0 H Plt Count Seg Neuts % (Manual) Lymphocytes % (Manual) Seg Neutrophils # Man Lymphocytes # (Manual) Monocytes # (Manual) PT INR D-Dimer ABG pH ABG pO2 ABG HCO3 ABG O2 Saturation ABG Base Excess ABG Hemoglobin Oxyhemoglobin Sodium Potassium Chloride Carbon Dioxide BUN Glucose POC Glucose 149 H 141 H Lactic Acid Calcium Phosphorus Magnesium AST ALT Alkaline Phosphatase Lactate Dehydrogenase Troponin T C-Reactive Protein NT-Pro-B Natriuret Pep Total Protein Albumin LDL Cholesterol Direct Vitamin B12 Crossmatch 11/14/21 11/14/21 11/14/21 04:46 05:10 11:10 WBC RBC Hgb Hct MCV MCH MCHC RDW Plt Count Seg Neuts % (Manual) Lymphocytes % (Manual) Seg Neutrophils # Man Lymphocytes # (Manual) Monocytes # (Manual) PT INR D-Dimer ABG pH ABG pO2 ABG HCO3 ABG O2 Saturation ABG Base Excess ABG Hemoglobin Oxyhemoglobin Sodium 148 H Potassium Chloride 113.1 H Carbon Dioxide BUN 43 H Glucose 140 H POC Glucose 132 H 133 H Lactic Acid Calcium 7.5 L Phosphorus Magnesium AST ALT Alkaline Phosphatase Lactate Dehydrogenase Troponin T C-Reactive Protein NT-Pro-B Natriuret Pep Total Protein Albumin LDL Cholesterol Direct Vitamin B12 Crossmatch 11/14/21 11/14/21 11/14/21 16:14 17:48 23:23 WBC RBC Hgb Hct MCV MCH MCHC RDW Plt Count Seg Neuts % (Manual) Lymphocytes % (Manual) Seg Neutrophils # Man Lymphocytes # (Manual) Monocytes # (Manual) PT INR D-Dimer ABG pH ABG pO2 ABG HCO3 28.0 H ABG O2 Saturation ABG Base Excess 3.1 H ABG Hemoglobin 5.8 L Oxyhemoglobin 94.8 L Sodium Potassium Chloride Carbon Dioxide BUN Glucose POC Glucose 130 H 136 H Lactic Acid Calcium Phosphorus Magnesium AST ALT Alkaline Phosphatase Lactate Dehydrogenase Troponin T C-Reactive Protein NT-Pro-B Natriuret Pep Total Protein Albumin LDL Cholesterol Direct Vitamin B12 Crossmatch 11/15/21 11/15/21 11/15/21 05:20 05:50 05:50 WBC 19.9 H RBC 3.50 L Hgb 8.2 L Hct 27.9 L MCV MCH 23 L MCHC 29 L RDW 24.9 H Plt Count Seg Neuts % (Manual) Lymphocytes % (Manual) Seg Neutrophils # Man Lymphocytes # (Manual) Monocytes # (Manual) PT INR D-Dimer ABG pH ABG pO2 ABG HCO3 ABG O2 Saturation ABG Base Excess ABG Hemoglobin Oxyhemoglobin Sodium 149 H Potassium Chloride 112.0 H Carbon Dioxide BUN 48 H Glucose 152 H POC Glucose 137 H Lactic Acid Calcium 7.9 L Phosphorus Magnesium AST ALT Alkaline Phosphatase Lactate Dehydrogenase Troponin T C-Reactive Protein NT-Pro-B Natriuret Pep Total Protein Albumin LDL Cholesterol Direct Vitamin B12 Crossmatch 11/15/21 11/15/21 11/15/21 12:12 17:07 23:24 WBC RBC Hgb Hct MCV MCH MCHC RDW Plt Count Seg Neuts % (Manual) Lymphocytes % (Manual) Seg Neutrophils # Man Lymphocytes # (Manual) Monocytes # (Manual) PT INR D-Dimer ABG pH ABG pO2 ABG HCO3 ABG O2 Saturation ABG Base Excess ABG Hemoglobin Oxyhemoglobin Sodium Potassium Chloride Carbon Dioxide BUN Glucose POC Glucose 114 H 135 H 123 H Lactic Acid Calcium Phosphorus Magnesium AST ALT Alkaline Phosphatase Lactate Dehydrogenase Troponin T C-Reactive Protein NT-Pro-B Natriuret Pep Total Protein Albumin LDL Cholesterol Direct Vitamin B12 Crossmatch 11/16/21 11/16/21 11/16/21 05:21 10:00 10:00 WBC 21.7 H RBC 2.57 L Hgb 6.0 L Hct 20.2 L D MCV MCH 24 L MCHC RDW 26.3 H Plt Count Seg Neuts % (Manual) Lymphocytes % (Manual) Seg Neutrophils # Man Lymphocytes # (Manual) Monocytes # (Manual) PT INR D-Dimer ABG pH ABG pO2 ABG HCO3 ABG O2 Saturation ABG Base Excess ABG Hemoglobin Oxyhemoglobin Sodium 153 H Potassium Chloride 114.9 H Carbon Dioxide BUN 74 H Glucose 155 H POC Glucose 127 H Lactic Acid Calcium 8.1 L Phosphorus Magnesium AST ALT Alkaline Phosphatase Lactate Dehydrogenase Troponin T C-Reactive Protein NT-Pro-B Natriuret Pep Total Protein Albumin LDL Cholesterol Direct Vitamin B12 Crossmatch 11/16/21 11/16/21 11/16/21 11:34 14:00 15:25 WBC 17.2 H RBC 2.08 L Hgb 4.7 L* Hct 16.2 L* MCV 78 L MCH 23 L MCHC 29 L RDW 26.0 H Plt Count Seg Neuts % (Manual) 87.0 H Lymphocytes % (Manual) 8.0 L Seg Neutrophils # Man 15.0 H Lymphocytes # (Manual) Monocytes # (Manual) 0.9 H PT INR D-Dimer ABG pH ABG pO2 ABG HCO3 ABG O2 Saturation ABG Base Excess ABG Hemoglobin Oxyhemoglobin Sodium Potassium Chloride Carbon Dioxide BUN Glucose POC Glucose 131 H Lactic Acid Calcium Phosphorus Magnesium AST ALT Alkaline Phosphatase Lactate Dehydrogenase Troponin T C-Reactive Protein NT-Pro-B Natriuret Pep Total Protein Albumin LDL Cholesterol Direct Vitamin B12 Crossmatch See Detail 11/16/21 11/16/21 11/16/21 15:25 17:21 22:43 WBC RBC Hgb 8.6 L D Hct 27.7 L D MCV MCH MCHC RDW Plt Count Seg Neuts % (Manual) Lymphocytes % (Manual) Seg Neutrophils # Man Lymphocytes # (Manual) Monocytes # (Manual) PT INR D-Dimer ABG pH ABG pO2 ABG HCO3 ABG O2 Saturation ABG Base Excess ABG Hemoglobin Oxyhemoglobin Sodium 148 H Potassium Chloride 113.2 H Carbon Dioxide BUN 84 H Glucose 164 H POC Glucose 124 H Lactic Acid Calcium 7.6 L Phosphorus Magnesium AST ALT Alkaline Phosphatase Lactate Dehydrogenase Troponin T C-Reactive Protein NT-Pro-B Natriuret Pep Total Protein Albumin LDL Cholesterol Direct Vitamin B12 Crossmatch 11/16/21 11/17/21 11/17/21 23:07 05:33 05:56 WBC 25.1 H RBC 3.47 L Hgb 8.7 L Hct 28.5 L MCV MCH 25 L MCHC RDW 22.3 H Plt Count Seg Neuts % (Manual) Lymphocytes % (Manual) Seg Neutrophils # Man Lymphocytes # (Manual) Monocytes # (Manual) PT INR D-Dimer ABG pH ABG pO2 ABG HCO3 ABG O2 Saturation ABG Base Excess ABG Hemoglobin Oxyhemoglobin Sodium Potassium Chloride Carbon Dioxide BUN Glucose POC Glucose 128 H 133 H Lactic Acid Calcium Phosphorus Magnesium AST ALT Alkaline Phosphatase Lactate Dehydrogenase Troponin T C-Reactive Protein NT-Pro-B Natriuret Pep Total Protein Albumin LDL Cholesterol Direct Vitamin B12 Crossmatch 11/17/21 05:56 WBC RBC Hgb Hct MCV MCH MCHC RDW Plt Count Seg Neuts % (Manual) Lymphocytes % (Manual) Seg Neutrophils # Man Lymphocytes # (Manual) Monocytes # (Manual) PT INR D-Dimer ABG pH ABG pO2 ABG HCO3 ABG O2 Saturation ABG Base Excess ABG Hemoglobin Oxyhemoglobin Sodium 151 H Potassium Chloride 113.6 H Carbon Dioxide BUN 85 H Glucose 132 H POC Glucose Lactic Acid Calcium 7.8 L Phosphorus Magnesium AST ALT Alkaline Phosphatase Lactate Dehydrogenase Troponin T C-Reactive Protein NT-Pro-B Natriuret Pep Total Protein 5.1 L Albumin 2.2 L LDL Cholesterol Direct Vitamin B12 Crossmatch Chest x-ray: pending Allied health notes reviewed: nursing
--- NOTE | 2021-11-17 11:32 | Consultation ---
History of Present Illness - Reason for Consult Consult date: 11/17/21 IVC filter Requesting physician: JASBIR SEVERINO - History of Present Illness This is a 81-year-old female with known history of diabetes mellitus, hypertension, PPM, and arthritis admitted for sepsis and acute hypoxia respiratory failure 2/2 bilateral pneumonia requiring intubation and ventilatory support She remains intubated and unable to provide a history Hemoglobin went from 6 to 4, then patient got 2 units transfusion blood and hemoglobin went up to 8 Patient has received a total of 4 units over the course of her hospitalization Occult blood positive yesterday Report of dark stool yesterday and today Vascular consulted for IVC filter. Patient has right lower extremity DVT with pulmonary issues making her high risk for deterioration if pulmonary embolism occurs. Patient cannot be anticoagulated due to severe anemia and is occult blood positive. Past History Past Medical History: arthritis, CAD, diabetes, hypertension, hypothyroidism, ot her (CHB) Past Surgical History: PTCA, Other (PPM). denies: valve replacement, CABG Social history: denies: smoking, alcohol abuse Family history: CAD, cancer, hypertension Medications and Allergies Allergies Allergy/AdvReac Type Severity Reaction Status Date / Time codeine Allergy Unknown Verified 11/04/21 02:20 meperidine HCl [From Demerol] Allergy Unknown Verified 11/04/21 02:21 morphine Allergy Unknown Verified 11/04/21 02:21 Penicillins Allergy Swelling Verified 11/04/21 02:21 Home Medications Medication Instructions Recorded Confirmed Last Taken Type Buspirone HCl [busPIRone] 15 mg PO DAILY 11/04/21 11/04/21 Unknown History Furosemide [Lasix] 40 mg PO QDAY 11/04/21 11/04/21 Unknown History HYDROcodone/APAP 10-325 [[place] 1 each PO Q8HR PRN 11/04/21 11/04/21 Unknown History 10/325] Levothyroxine [Synthroid] 125 mcg PO QAM 11/04/21 11/04/21 Unknown History Loratadine [Allergy Relief] 10 mg PO QDAY PRN 11/04/21 11/04/21 Unknown History Meclizine [Antivert] 12.5 mg PO BID PRN 11/04/21 11/04/21 Unknown History Nitroglycerin [Nitrostat] 0.4 mg SL PRN PRN 11/04/21 11/04/21 Unknown History Omeprazole Magnesium [Prilosec] 20 mg PO QDAY 11/04/21 11/04/21 Unknown History Pravastatin Sodium [Pravastatin] 20 mg PO QHS 11/04/21 11/04/21 Unknown History Prednisone [predniSONE (Rebeca) ER 1 mg PO QDAY 11/04/21 11/04/21 Unknown History TAB] allopurinoL [Zyloprim] 300 mg PO QDAY 11/04/21 11/04/21 Unknown History ondansetron HCL [Zofran] 4 mg PO Q6HR PRN 11/04/21 11/04/21 Unknown History Active Meds: Active Medications Acetaminophen (Acetaminophen 325 Mg Tab) 650 mg PO Q6H PRN PRN Reason: Pain MILD(1-3)/Fever >100.5/RODRIGUEZ Last Admin: 11/16/21 15:43 Dose: 650 mg Hydrocodone Bitart/Acetaminophen (Hydrocodone/Acetaminophen 10-325mg Tab) 1 each PO TID YOSSI Stop: 11/20/21 19:59 Last Admin: 11/17/21 07:50 Dose: 1 each Lipase/Protease/Amylase (Lipase 10,500/Protease 25,000/Amylase 43,750 (Units) Dr Cap) 1 each FEEDTUBE PRN PRN PRN Reason: For Clogged Feeding Tube Dextrose (Dextrose 10% *Hypoglycemia) 0 ml IV PRN PRN PRN Reason: Hypoglycemia Docusate Sodium (Docusate Sodium 100 Mg/10 Ml Oral Liqd) 100 mg PO BID YOSSI Last Admin: 11/17/21 09:41 Dose: Not Given Fentanyl (Fentanyl 100 Mcg/2 Ml Inj) 50 mcg IV Q10MIN PRN PRN Reason: ANALGESIA Last Admin: 11/15/21 10:42 Dose: 50 mcg Furosemide (Furosemide 20 Mg/2 Ml Inj) 20 mg IV 0600,1800 [facility] Last Admin: 11/17/21 05:45 Dose: 20 mg Hydrophilic Ointment (Lip Therapy Vaseline) 1 applic TP Q2HR PRN PRN Reason: Dry Lips NORepinephrine/NS 8 MG-250 ML (Norepinephrine/Ns 8 Mg-250 Ml (Double Conc)) 8 mg in 250 mls @ 3.75 mls/hr IV TITRATE YOSSI; Protocol Last Titration: 11/17/21 10:37 Dose: 6 mcg/min, 11.25 mls/hr Vasopressin 20 unit/ Sodium (Chloride) 101 mls @ 9.09 mls/hr IV TITR YOSSI; Protocol Last Admin: 11/06/21 01:00 Dose: 0.03 units/min, 9.09 mls/hr Fentanyl Citrate (Fentanyl Drip Premix) 2,000 mcg in 100 mls @ 3.12 mls/hr IV TITR YOSSI; Protocol Last Titration: 11/15/21 12:00 Dose: Infused Cefepime HCl (Cefepime/Ns 1 Gm/100 Ml) 1 gm in 100 mls @ 200 mls/hr IV Q8H YOSSI; Protocol Last Admin: 11/17/21 07:50 Dose: 200 mls/hr Pantoprazole Sodium 80 mg/ (Sodium Chloride) 100 mls @ 10 mls/hr IV DIRECT YOSSI Last Admin: 11/17/21 05:18 Dose: 8 mg/hr, 10 mls/hr Insulin Human Lispro (Insulin Lispro 100 Unit/Ml) 0 unit SUB-Q Q6HR YOSSI; Protocol Last Admin: 11/17/21 07:59 Dose: Not Given Levothyroxine Sodium (Levothyroxine 125 Mcg Tab) 125 mcg PO DAILY@0600 [facility] Last Admin: 11/17/21 05:44 Dose: 125 mcg Magnesium Hydroxide (Magnesium Hydroxide (Mom) Oral Liqd Udc) 30 ml PO Q4H PRN PRN Reason: Constipation Multi-Ingred Cream/Lotion/Oil/Oint (Mineral Oil/Petrolatum, White Ophth Oint 3.5 Gm) 1 applic OU Q4HR PRN PRN Reason: Dry Eye(s) Ondansetron HCl (Ondansetron 4 Mg/2 Ml Inj) 4 mg IV Q8H PRN PRN Reason: Nausea And Vomiting Last Admin: 11/05/21 15:48 Dose: 4 mg Polyethylene Glycol (Polyethylene Glycol 3350 17 Gm Powder) 17 gm PO QDAY [facility] Last Admin: 11/17/21 09:41 Dose: Not Given Senna (Sennosides Oral Liqd 8.8 Mg/5 Ml Oral Liqd) 17.6 mg PO Q12HR [facility] Last Admin: 11/17/21 09:41 Dose: Not Given Simple Syrup (Simple Syrup 15 Ml) 15 ml FEEDTUBE PRN PRN PRN Reason: Hypoglycemia Simple Syrup (Simple Syrup 15 Ml) 30 ml FEEDTUBE PRN PRN PRN Reason: Hypoglycemia Sodium Bicarbonate (Sodium Bicarbonate 325 Mg Tab) 325 mg FEEDTUBE PRN PRN PRN Reason: For Clogged Feeding Tube Sodium Chloride (Sodium Chloride 0.9% 10 Ml Flush Syringe) 10 ml IV BID YOSSI Last Admin: 11/17/21 09:59 Dose: 10 ml Sodium Chloride (Sodium Chloride 0.9% 10 Ml Flush Syringe) 10 ml IV PRN PRN PRN Reason: LINE FLUSH Sodium Chloride (Sodium Chloride 0.9% 50 Ml Ivpb) 10 ml IV PRN PRN PRN Reason: FLUSH Last Admin: 11/12/21 17:08 Dose: 10 ml Review of Systems ROS unobtainable: due to endotracheal tube Exam - Constitutional Vitals: Temp Pulse Resp BP Pulse Ox 99.9 F H 80 15 120/53 98 11/17/21 08:00 11/17/21 10:15 11/17/21 10:15 11/17/21 10:15 11/17/21 10:15 General appearance: Present: no acute distress - EENT ENT: other (Intubated) - Respiratory Respiratory effort: other (Intubated) - Abdominal General gastrointestinal: Present: soft, other - Rectal Rectal Exam: deferred - Psychiatric Psychiatric: other (Intubated) - Neurologic Neurologic: other (Intubated) Results - Labs CBC & Chem 7: 11/17/21 11:55 11/17/21 05:56 Labs: Abnormal lab results 11/16/21 11/16/21 11/16/21 Range/Units 11:34 14:00 15:25 WBC 17.2 H (4.5-11.0) K/mm3 RBC 2.08 L (3.65-5.03) M/mm3 Hgb 4.7 L* (10.1-14.3) gm/dl Hct 16.2 L* (30.3-42.9) % MCV 78 L (79-97) fl MCH 23 L (28-32) pg MCHC 29 L (30-34) % RDW 26.0 H (13.2-15.2) % Seg Neuts % (Manual) 87.0 H (40.0-70.0) % Lymphocytes % (Manual) 8.0 L (13.4-35.0) % Seg Neutrophils # Man 15.0 H (1.8-7.7) K/mm3 Monocytes # (Manual) 0.9 H (0.0-0.8) K/mm3 Sodium (137-145) mmol/L Chloride (98-107) mmol/L BUN (7-17) mg/dL Glucose (65-100) mg/dL POC Glucose 131 H (70-105) mg/dL Calcium (8.4-10.2) mg/dL Total Protein (6.3-8.2) g/dL Albumin (3.9-5) g/dL Crossmatch See Detail 11/16/21 11/16/21 11/16/21 Range/Units 15:25 17:21 22:43 WBC (4.5-11.0) K/mm3 RBC (3.65-5.03) M/mm3 Hgb 8.6 L D (10.1-14.3) gm/dl Hct 27.7 L D (30.3-42.9) % MCV (79-97) fl MCH (28-32) pg MCHC (30-34) % RDW (13.2-15.2) % Seg Neuts % (Manual) (40.0-70.0) % Lymphocytes % (Manual) (13.4-35.0) % Seg Neutrophils # Man (1.8-7.7) K/mm3 Monocytes # (Manual) (0.0-0.8) K/mm3 Sodium 148 H (137-145) mmol/L Chloride 113.2 H (98-107) mmol/L BUN 84 H (7-17) mg/dL Glucose 164 H (65-100) mg/dL POC Glucose 124 H (70-105) mg/dL Calcium 7.6 L (8.4-10.2) mg/dL Total Protein (6.3-8.2) g/dL Albumin (3.9-5) g/dL Crossmatch 11/16/21 11/17/21 11/17/21 Range/Units 23:07 05:33 05:56 WBC 25.1 H (4.5-11.0) K/mm3 RBC 3.47 L (3.65-5.03) M/mm3 Hgb 8.7 L (10.1-14.3) gm/dl Hct 28.5 L (30.3-42.9) % MCV (79-97) fl MCH 25 L (28-32) pg MCHC (30-34) % RDW 22.3 H (13.2-15.2) % Seg Neuts % (Manual) (40.0-70.0) % Lymphocytes % (Manual) (13.4-35.0) % Seg Neutrophils # Man (1.8-7.7) K/mm3 Monocytes # (Manual) (0.0-0.8) K/mm3 Sodium (137-145) mmol/L Chloride (98-107) mmol/L BUN (7-17) mg/dL Glucose (65-100) mg/dL POC Glucose 128 H 133 H (70-105) mg/dL Calcium (8.4-10.2) mg/dL Total Protein (6.3-8.2) g/dL Albumin (3.9-5) g/dL Crossmatch 11/17/21 11/17/21 Range/Units 05:56 11:00 WBC (4.5-11.0) K/mm3 RBC (3.65-5.03) M/mm3 Hgb (10.1-14.3) gm/dl Hct (30.3-42.9) % MCV (79-97) fl MCH (28-32) pg MCHC (30-34) % RDW (13.2-15.2) % Seg Neuts % (Manual) (40.0-70.0) % Lymphocytes % (Manual) (13.4-35.0) % Seg Neutrophils # Man (1.8-7.7) K/mm3 Monocytes # (Manual) (0.0-0.8) K/mm3 Sodium 151 H (137-145) mmol/L Chloride 113.6 H (98-107) mmol/L BUN 85 H (7-17) mg/dL Glucose 132 H (65-100) mg/dL POC Glucose 121 H (70-105) mg/dL Calcium 7.8 L (8.4-10.2) mg/dL Total Protein 5.1 L (6.3-8.2) g/dL Albumin 2.2 L (3.9-5) g/dL Crossmatch Assessment and Plan 81-year-old female with multiple medical issues who was admitted for sepsis with pneumonia who has a right lower extremity DVT with severe anemia requiring 2 packed red blood cell unit transfusion with response. Given patient's multiple medical issues and sepsis with pneumonia, a pulmonary embolism would place her at a prohibitively high risk for further deterioration. Patient is occult blood positive with severe anemia and cannot tolerate further anticoagulation per primary team. Given these issues, IVC filter is appropriate. Discussed with who agrees with procedure. Plan for IVC filter placement. Once patient's risk of GI bleeding decreases, consider reinitiation of anticoagulation. Discussed with that patient should follow-up with us if she survives this hospitalization for IVC filter removal.
[2021-11-17] MEDS: NORepinephrine/NS 8 MG-250 ML 8 MG/250 ML INFUS..BTL IV SCH (11:43)
[2021-11-17] MEDS: fentaNYL DRIP Premix 2,000 MCG/100 ML BAG IV SCH ×2 (12:04→12:10)
--- NOTE | 2021-11-17 12:23 | XRay Report ---
ABDOMEN 1 VIEW INDICATION / CLINICAL INFORMATION: ivc filter, check. Evaluate for presence of IVC filter. COMPARISON: KUB from 11/15/2021. FINDINGS: TUBES / LINES: Unchanged esophagogastric tube. BOWEL GAS PATTERN: No significant abnormality. FREE AIR / EXTRALUMINAL GAS: None seen. ADDITIONAL FINDINGS: No IVC filter is identified. The bones are unchanged. IMPRESSION: No acute findings. No IVC filter is identified. Signer Name: Osiel Kirk MD Signed: 11/17/2021 12:18 PM Workstation Name: [id number]
--- NOTE | 2021-11-17 12:29 | Progress Note ---
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 She was found to be in respiratory distress, initially treated with NRB. Pt was also noted to be septic with radiographic evidence of bilateral PNA Acute Respiratory Failure Septic Shock GBS Bacteremia Bilateral Pneumonia Bilateral Pleural Effusions Right pneumothorax and s/p right chest tube Acute HFrEF DVT Cardiomyopathy (EF reduced to 30-35% on echo this admission) NSVT Tn Elevation (?Type 2 NH in the setting of hypoxia & shock) Elevated LFTs (?shock liver) Anemia Hypokalemia CAD s/p PCI (2004) CHB s/p PPM ([facility]) Hypothyroidism H/o HTN H/o DM Arthritis Echo reviewed - EF 30-35%, mild diastolic dysfunction, RV mildly dilated, moderate MR, moderate TR, moderate pulmonary HTN w/RVSP 49mmHg, no pericardial effusion, large left pleural effusion. Plan: Will continue to hold BB for soft BB Continue gentle IV diuresis with strict I/Os and close monitoring of renal indices & electrolytes. Not on ASA d/t allergy. Statin held in the setting of elevated LFTs. Patient may be for ICV filter today Pt seen in conjunction with Dr. Rizo who agrees with the assessment and plan of care. - Patient Problems (1) Acute anemia Current Visit: Yes Status: Acute (2) Acute respiratory failure with hypoxia Current Visit: Yes Status: Acute (3) Bilateral pneumonia Current Visit: Yes Status: Acute Subjective Date of service: 11/17/21 Principal diagnosis: Septic shock; AHRF; Anemia; Pneumonia; L. pleural effusion; HFrEF; Pulm HTN Interval history: Patient remained intubated and sedated Sinus 80s with APCs on monitor Objective Vital Signs Temp Pulse Pulse Resp BP Pulse Ox 11/17/21 12:16 83 14 134/47 100 11/17/21 12:00 83 83 13 140/53 100 11/17/21 11:45 76 19 116/48 99 11/17/21 11:30 78 12 122/57 99 11/17/21 11:15 80 15 128/60 99 11/17/21 11:00 81 19 124/60 98 11/17/21 10:45 80 20 132/64 99 11/17/21 10:30 77 16 104/45 99 11/17/21 10:15 80 15 120/53 98 11/17/21 10:00 84 16 103/49 98 11/17/21 09:56 82 148/68 98 11/17/21 09:45 92 H 37 H 148/68 99 11/17/21 09:31 92 H 33 H 149/65 99 11/17/21 09:17 82 21 128/55 99 11/17/21 09:15 78 18 128/55 99 11/17/21 09:00 78 15 119/60 99 11/17/21 08:45 78 18 123/55 99 11/17/21 08:30 79 19 84/39 98 11/17/21 08:15 80 17 108/49 97 11/17/21 08:00 99.9 F H 95 H 89 16 148/58 99 11/17/21 07:45 87 13 139/57 97 11/17/21 07:30 79 14 104/49 97 11/17/21 07:15 83 16 117/50 97 11/17/21 07:00 90 20 151/92 97 11/17/21 06:45 89 29 H 144/81 98 11/17/21 06:30 89 21 146/75 98 11/17/21 06:15 82 19 125/59 97 11/17/21 06:00 81 17 141/63 97 11/17/21 05:45 85 15 141/63 98 11/17/21 05:30 85 18 132/64 98 11/17/21 05:15 82 22 130/57 98 11/17/21 05:00 84 12 113/53 100 11/17/21 04:45 76 19 113/53 97 11/17/21 04:30 75 21 99/45 97 11/17/21 04:15 77 16 107/54 99 11/17/21 04:01 76 11/17/21 04:00 98.8 F 81 78 21 109/50 100 11/17/21 03:45 74 20 98/45 99 11/17/21 03:30 74 18 111/47 99 11/17/21 03:15 75 22 102/47 99 11/17/21 03:00 75 18 106/46 98 11/17/21 02:45 75 20 101/44 99 11/17/21 02:30 75 21 100/42 99 11/17/21 02:15 75 18 103/45 99 11/17/21 02:00 74 17 105/47 100 11/17/21 01:45 75 18 98/41 100 11/17/21 01:30 75 18 108/45 99 11/17/21 01:15 77 17 108/47 100 11/17/21 01:00 77 19 112/49 100 11/17/21 00:45 75 13 104/47 100 11/17/21 00:30 77 21 112/49 100 11/17/21 00:15 76 20 107/46 100 11/17/21 00:00 76 77 17 109/50 100 11/16/21 23:45 79 13 114/53 100 11/16/21 23:42 98.5 F 11/16/21 23:30 76 17 104/45 100 11/16/21 23:15 77 20 107/45 100 11/16/21 23:00 77 17 112/47 100 11/16/21 22:45 80 16 94/41 100 11/16/21 22:30 78 17 104/42 100 11/16/21 22:15 79 15 113/50 100 11/16/21 22:00 79 17 101/45 100 11/16/21 21:45 77 17 102/43 100 11/16/21 21:30 77 18 98/43 100 11/16/21 21:15 78 17 122/44 100 11/16/21 21:00 81 16 139/46 100 11/16/21 20:45 83 15 129/54 100 11/16/21 20:30 80 14 118/53 100 11/16/21 20:15 80 17 114/50 99 11/16/21 20:04 78 17 93/39 99 11/16/21 20:00 99.2 F 82 82 24 129/54 100 11/16/21 19:45 79 21 116/50 97 11/16/21 19:30 81 17 117/50 95 11/16/21 19:25 97.5 F L 81 24 117/50 92 11/16/21 19:15 83 30 H 109/50 94 11/16/21 19:14 98.4 F 86 21 109/50 93 11/16/21 19:00 84 39 H 103/47 93 11/16/21 18:45 87 26 H 93/41 92 11/16/21 18:44 98.6 F 87 22 93/41 94 11/16/21 18:30 95 H 18 155/72 90 11/16/21 18:29 99.1 F 94 H 22 155/72 91 11/16/21 18:15 106 H 13 155/72 100 11/16/21 18:00 90 17 127/62 97 11/16/21 17:45 91 H 21 127/62 97 11/16/21 17:30 96 H 14 126/60 100 11/16/21 17:18 99.2 F 92 H 21 118/51 99 11/16/21 17:15 90 14 118/51 100 11/16/21 17:00 91 H 19 95/43 96 11/16/21 16:48 99.5 F 93 H 17 93/44 99 11/16/21 16:45 94 H 18 93/44 100 11/16/21 16:30 97 H 19 98/43 100 11/16/21 16:18 99.5 F 99 H 16 87/37 100 11/16/21 16:15 96 H 18 87/37 100 11/16/21 16:03 99 F 98 H 17 86/37 100 11/16/21 16:00 81 16 86/37 100 11/16/21 15:46 101 H 17 86/38 100 11/16/21 15:43 18 11/16/21 15:30 100 H 21 79/34 98 11/16/21 15:16 105 H 22 88/36 98 11/16/21 15:00 103 H 20 71/33 100 11/16/21 14:48 105 H 19 127/58 100 11/16/21 14:46 108 H 18 127/58 99 11/16/21 14:38 18 11/16/21 14:30 109 H 41 H 127/58 92 11/16/21 14:00 103 H 22 116/48 98 11/16/21 13:38 25 H 11/16/21 13:30 111 H 25 H 120/55 98 11/16/21 13:00 111 H 25 H 120/55 99 11/16/21 12:30 109 H 22 105/47 100 - Physical Examination General: Other (intubated) HEENT: Positive: Normocephaly Neck: Positive: neck supple, trachea midline Cardiac: Positive: Reg Rate and Rhythm Lungs: Positive: Ventilated Respirations Neuro: Positive: Other (intubated) Abdomen: Positive: Soft Skin: Negative: Rash, Wound Musculoskeletal: No Fluid Collection Extremities: Present: lower extr. pulses, edema - Labs and Meds Cardiac Enzymes 11/17/21 Range/Units 05:56 AST 36 (5-40) units/L CBC 11/16/21 11/16/21 11/17/21 Range/Units 15:25 22:43 05:56 WBC 17.2 H 25.1 H (4.5-11.0) K/mm3 RBC 2.08 L 3.47 L (3.65-5.03) M/mm3 Hgb 4.7 L* 8.6 L D 8.7 L (10.1-14.3) gm/dl Hct 16.2 L* 27.7 L D 28.5 L (30.3-42.9) % Plt Count 172 237 (140-440) K/mm3 Comprehensive Metabolic Panel 11/16/21 11/17/21 Range/Units 15:25 05:56 Sodium 148 H 151 H (137-145) mmol/L Potassium 3.8 3.8 (3.6-5.0) mmol/L Chloride 113.2 H 113.6 H (98-107) mmol/L Carbon Dioxide 26 25 (22-30) mmol/L BUN 84 H 85 H (7-17) mg/dL Creatinine 1.0 1.0 (0.6-1.2) mg/dL Glucose 164 H 132 H (65-100) mg/dL Calcium 7.6 L 7.8 L (8.4-10.2) mg/dL AST 36 (5-40) units/L ALT 47 (7-56) units/L Alkaline Phosphatase 107 (35-129) units/L Total Protein 5.1 L (6.3-8.2) g/dL Albumin 2.2 L (3.9-5) g/dL - Imaging and Cardiology EKG: report reviewed, image reviewed Stress echo: report reviewed Echo: report reviewed Cardiac cath: report reviewed - Telemetry EKG Rhythm: Sinus Rhythm - EKG Sinus rhythms and dysrhythmias: sinus rhythm, sinus tachycardia Ventricular dysrhythmias: ventricular premature com - Allied health notes Allied health notes reviewed: nursing
[2021-11-17] MEDS: fentaNYL 25 MCG/HR PATCH 72HR TD SCH (13:00)
[2021-11-17 13:21] LABS: Hematocrit 26.9 % (30.3-42.9); Hemoglobin 8.3 gm/dl (10.1-14.3)
[2021-11-17] MEDS ORDERED: SODIUM CHLORIDE 0.9% 500 ML 500 ML ONE (13:36)
[2021-11-17] MEDS ORDERED: HEPARIN/NS 5000 UNIT/500ML 500 ML IR ONE (13:36)
[2021-11-17] MEDS ORDERED: MIDAZOLAM 2 MG/2 ML INJ ONE (13:54)
[2021-11-17] MEDS ORDERED: fentaNYL 100 MCG/2 ML INJ ONE (13:54)
[2021-11-17] MEDS: LIDOCAINE (2%) 20 MG/1 ML VIAL 20 ML MDV INFILTRATI ONE ×2 (14:20→14:23)
--- NOTE | 2021-11-17 15:00 | Operative Report ---
Operative Report Operative Report: EXAM: Ultrasound guided access of the right internal jugular Selection of the left hepatic vein with digital subtraction angiography Selection of the right hepatic vein with digital subtraction angiography Selection of the left external iliac vein with digital subtraction angiography IVC filter placement and inferior venacava venography DATE: 11/17/2021 INDICATION: Right lower extremity DVT with inability to anticoagulate due to GI bleed with anemia. MEDICATIONS: Continuous cardiopulmonary monitoring was performed during this procedure. Please review the nursing record for a list of all medications. DEVICES: Retrievable Bard Lawrence IVC filter. PERFUME AND TOILET WATER MAKER: STEPHANIE RAMOS MD CONTRAST: 70 mLs of nonionic contrast PROCEDURE: The risks, benefits, and alternatives were discussed with the patient's spouse; written informed consent was obtained. The patient was transported to the angiography suite in stable condition. The patient was transported on the table and the right internal jugular was assessed with ultrasound to ensure patency. The patient was prepped and draped in a sterile fashion. The right internal jugular vein was accessed with an 21-gauge needle under direct ultrasound guidance. Under direct ultrasound guidance, the right internal jugular vein was accessed with a 21-gauge needle. 0.018 inch wire was advanced through the needle and the needle was exchanged for a transitional dilation. Inner dilator and wire was removed. 0.035 inch wire was passed into the superior vena cava. The transitional dilator was exchanged for a 5 Trin[place] sheath. Digital subtraction angiography was performed demonstrating patency of the SVC and right atrium. Multiple wires and catheters were used to select the IVC. I suspect this was due to the dilated nature of the right atrium. Initially, the left hepatic vein and right hepatic vein were selected and digital subtraction angiography de monstrated patency of the hepatic branches. Ultimately the IVC was selected. Then the left external iliac vein was selected. Digital subtraction angiography was performed demonstrating patency of the left external iliac vein and common iliac vein. 5 Trin[place] pigtail catheter was advanced over the wire and passed into the inferior vena cava. The table was locked. Digital subtraction venography was performed. Digital subtraction venography of the inferior vena cava demonstrates no evidence of inferior vena cava thrombus. The inferior vena cava is normal in size. Renal vein inflow is visualized. The inferior vena cava is adequate to accommodate an IVC filter. The pigtail was removed over a 0.035 inch wire and the sheath was removed over the wire. The IVC filter sheath and introducer were advanced over the wire under direct fluoroscopic guidance. The wire and introducer were removed. The IVC filter deployment system was advanced through the sheath and properly positioned under fluoroscopic guidance. The IVC filter was deployed under direct fluoroscopic guidance. Venography was performed through the sheath to confirm position. Bard Terri retrievable IVC filter is properly positioned, below the renal veins and above the iliocaval confluence. The deployment system, and sheath were removed. Pressure was held until hemostasis was achieved. The patient was transferred from the angiography suite in stable condition. FINDINGS: Please see procedure notes above. IMPRESSION: Successful placement of a retrievable Bard Lawrence IVC filter. No evidence of caval thrombus.
--- NOTE | 2021-11-17 15:35 | Progress Note ---
Assessment and Plan Cultures: SARS CoV2 PCR: negative 11/03/2021 blood culture: Group B streptococcus 11/04/2021 blood culture: no growth 11/11/2021 blood culture: No growth A/P: 81-year-old female with diabetes mellitus, hypertension, arthritis was admitted with shortness of breath. She was also having fever: #Severe sepsis with shock, secondary to bilateral pneumonia: likely from Group B Strep. COVID-19 negative #Group B Strep bacteremia: Likely secondary to above, no other source identified, other possibility is mild lower extremity cellulitis. Does have indwelling cardiac device, per patient it is a pacemaker. TTE showed no valvular or lead vegetations #Acute hypoxic respiratory failure: Secondary to above. Intubated, on the vent. #Acute DVT: unable to anticoagulate Recs: -Given fevers and worsening white count escalated to cefepime. fevers improving, white count remains high -IVC filter for DVT today -overall guarded prognosis Mahogany Montes MD [facility] O: [phone] F: [phone] Subjective Date of service: 11/17/21 Principal diagnosis: Septic shock; AHRF; Anemia; Pneumonia; L. pleural effusion; HFrEF; Pulm HTN Interval history: Afebrile overnight, white count worsened to 25.1. Blood cultures remain negative. To the OR today for IVC filter. Imaging personally reviewed: Chest x-ray: Improving bilateral pneumonia Objective - Exam Narrative Exam: Physical exam deferred to reduce risk of transmission of COVID-19. Please refer to primary team's note. - Constitutional Vitals: Vital Signs Temp Pulse Resp BP Pulse Ox 98.5 F 78 18 114/55 98 11/17/21 12:00 11/17/21 13:30 11/17/21 13:30 11/17/21 13:30 11/17/21 13:30 Temperature -Last 24 Hours Temperature 98.5 F Temperature 99.9 F Temperature 98.8 F Temperature 98.5 F Temperature 99.2 F Temperature 97.5 F Temperature 98.4 F Temperature 98.6 F Temperature 99.1 F Temperature 99.2 F Temperature 99.5 F Temperature 99.5 F Temperature 99 F - Labs CBC & Chem 7: 11/17/21 11:55 11/17/21 05:56 Labs: Abnormal lab results 11/16/21 11/16/21 11/16/21 Range/Units 14:00 15:25 15:25 WBC 17.2 H (4.5-11.0) K/mm3 RBC 2.08 L (3.65-5.03) M/mm3 Hgb 4.7 L* (10.1-14.3) gm/dl Hct 16.2 L* (30.3-42.9) % MCV 78 L (79-97) fl MCH 23 L (28-32) pg MCHC 29 L (30-34) % RDW 26.0 H (13.2-15.2) % Seg Neuts % (Manual) 87.0 H (40.0-70.0) % Lymphocytes % (Manual) 8.0 L (13.4-35.0) % Seg Neutrophils # Man 15.0 H (1.8-7.7) K/mm3 Monocytes # (Manual) 0.9 H (0.0-0.8) K/mm3 Sodium 148 H (137-145) mmol/L Chloride 113.2 H (98-107) mmol/L BUN 84 H (7-17) mg/dL Glucose 164 H (65-100) mg/dL POC Glucose (70-105) mg/dL Calcium 7.6 L (8.4-10.2) mg/dL Total Protein (6.3-8.2) g/dL Albumin (3.9-5) g/dL Crossmatch See Detail 11/16/21 11/16/21 11/16/21 Range/Units 17:21 22:43 23:07 WBC (4.5-11.0) K/mm3 RBC (3.65-5.03) M/mm3 Hgb 8.6 L D (10.1-14.3) gm/dl Hct 27.7 L D (30.3-42.9) % MCV (79-97) fl MCH (28-32) pg MCHC (30-34) % RDW (13.2-15.2) % Seg Neuts % (Manual) (40.0-70.0) % Lymphocytes % (Manual) (13.4-35.0) % Seg Neutrophils # Man (1.8-7.7) K/mm3 Monocytes # (Manual) (0.0-0.8) K/mm3 Sodium (137-145) mmol/L Chloride (98-107) mmol/L BUN (7-17) mg/dL Glucose (65-100) mg/dL POC Glucose 124 H 128 H (70-105) mg/dL Calcium (8.4-10.2) mg/dL Total Protein (6.3-8.2) g/dL Albumin (3.9-5) g/dL Crossmatch 11/17/21 11/17/21 11/17/21 Range/Units 05:33 05:56 05:56 WBC 25.1 H (4.5-11.0) K/mm3 RBC 3.47 L (3.65-5.03) M/mm3 Hgb 8.7 L (10.1-14.3) gm/dl Hct 28.5 L (30.3-42.9) % MCV (79-97) fl MCH 25 L (28-32) pg MCHC (30-34) % RDW 22.3 H (13.2-15.2) % Seg Neuts % (Manual) (40.0-70.0) % Lymphocytes % (Manual) (13.4-35.0) % Seg Neutrophils # Man (1.8-7.7) K/mm3 Monocytes # (Manual) (0.0-0.8) K/mm3 Sodium 151 H (137-145) mmol/L Chloride 113.6 H (98-107) mmol/L BUN 85 H (7-17) mg/dL Glucose 132 H (65-100) mg/dL POC Glucose 133 H (70-105) mg/dL Calcium 7.8 L (8.4-10.2) mg/dL Total Protein 5.1 L (6.3-8.2) g/dL Albumin 2.2 L (3.9-5) g/dL Crossmatch 11/17/21 11/17/21 Range/Units 11:00 11:55 WBC (4.5-11.0) K/mm3 RBC (3.65-5.03) M/mm3 Hgb 8.3 L (10.1-14.3) gm/dl Hct 26.9 L (30.3-42.9) % MCV (79-97) fl MCH (28-32) pg MCHC (30-34) % RDW (13.2-15.2) % Seg Neuts % (Manual) (40.0-70.0) % Lymphocytes % (Manual) (13.4-35.0) % Seg Neutrophils # Man (1.8-7.7) K/mm3 Monocytes # (Manual) (0.0-0.8) K/mm3 Sodium (137-145) mmol/L Chloride (98-107) mmol/L BUN (7-17) mg/dL Glucose (65-100) mg/dL POC Glucose 121 H (70-105) mg/dL Calcium (8.4-10.2) mg/dL Total Protein (6.3-8.2) g/dL Albumin (3.9-5) g/dL Crossmatch
[2021-11-17] MEDS: DEXTROSE 5% IN WATER 1,000 ML IV SCH (16:08)
--- NOTE | 2021-11-17 17:05 | Progress Note ---
<LONNIE MAURICE - Last Filed: 11/17/21 18:14> Assessment and Plan Assessment and plan: This is a 81-year-old female with known history of diabetes mellitus, hypertension, PPM, and arthritis admitted for sepsis and acute hypoxia respiratory failure 2/2 bilateral pneumonia requiring intubation and ventilatory support Hospital Course to date: 11/04/2021: Empiric therapy with iv levaquin/vancomycin. COVID PCR pending. Will consult ID. PCCM consulted, will follow recs. Hypotensive this AM, ordered bolus and fluids at 150 cc/hr. May require pressor support if bp does not improve. 11/05/2021: GBS on bcx +, currently on rocephin IV. Currently on bipap due to respiratory distress overnight. Worsening BL opacities on CXR. May be volume overload vs pneumonia. Unfortunately bp too low for lasix at this point. WIll continue levophed and bipap. Once able to tolerate, may do trial of albumin/lasi x. Call attempt made to Niraj, no response. Will try again tomorrow to update. 11/06/2021: Decompensated overnight requiring intubation. CXR shows worsening interstitial infiltrates. Currenlty on dopamine, levophed, vasopressin. PICC line ordered. Advised RN to place gamble for I/O monitoring. Would benefit from diuresis but very volume overloaded. Prognosis guarded 11/08: Off sedation this am, remains unresponsive only grimace to pain. Hold all sedatives agents for now, patient is off pressors this am. Hypernatremia from today's lab- D5W X1bag, and low K repleted, repeat lab in the am. Severe constipation also noted from KUB, BR added. 11/09: Sudden SPO2 drop in the 60s this am. Patient was manually bagged and deep suctioned. Patient is currently stable on the vent, repeat CXR with no significant change. D/w CCM Mucomyst and brochodilator added. Patient mentation is unchanged, continue to hold off on sedative agents. Neurology consulted. 11/10: Acute DVT noted on bilateral lower extremity Doppler ultrasound therefore she was started on Lovenox treatment dose. Failed SBT. Hypernatremia and hyperchloremia noted, free water flush adjusted. 11/11: Patient noted to be febrile with increasing of the cytosis, UA/BC sent and CXR ordered. ID escalated antibiotics to cefepime. CXR demonstrated mucous plug, bedside bronchoscopy was performed and O ETT was changed over bougie from 6 cm to 7.5. Patient was noted to have a pneumothorax postprocedure and chest tube was placed. Family updated by [facility]. Free water flush increased and will add Jaswant supplementation. 11/12: Patient not noted to follow commands, hypernatremia worsen/persist, increasing free water flush, potassium and magnesium and phosphorus repleted. Hemoglobin noted to be 7.1/24.5 from 7.03/12 yesterday. We will continue to trend and monitor. Vent changes per CCM. Repeat CXR showed no residual pneumo thorax. Consider waterseal tomorrow. Given persistent leukocytosis antibiotics escalated to cefepime per ID. 11/13: Remains on cefepime and vancomycin, vent changes per CCM. Anemia noted and given 1 unit PRBC. And beta-charleen held in setting of Levophed drip infusing. Remains on fentanyl drip. 11/14: Patient put on CPAP trial by [facility], will continue chest tube until after extubation. Will rest on assist control. CT brain was cancelled by [facility] and reordered. 11/15: Patient removed chest tube overnight. Will obtain cxr. remains on low dose levo. CTH completed with no acute findings. RT to place on CPAP. 11/16: Hypernatremia/hyperchloremia noted on the increase of day water flushes. Anemia noted and ordered PRBC. asked RT to place on cpap but not done yet 11/17: Patient remains on the vent, awake and following commands. H&H stable s/p 2units PRBCs. GI on consult, no intervention at this time. Will continue protonix gtt and serial H&H Q6hrs. Keep patient NPO for now, D5w added for hypernatremia and NPO status. Plan for IVC filter placement today by Vascular. Assessment and Plan #Septic Shock POA #Bilateral Pneumonia #Bacteremia - Presented with fevers, leukocytosis, and hypotension - COVID PCR negative - 11/04 Bcult with 3/4 group B strep bacteremia - Repeat Bculture NGTD - 11/04 2D Echo with no evidence of vegetation - ID on consult, appreciate recommendations - Continue current IV Abx per ID - F/u on culture data - Trend CBC #Acute Hypoxic Respiratory Failure 2/ #Right Pneumothorax #Bilateral Pleural Effusion #Bilateral Pneumonia - COVID PCR negative - CXR shows Bilateral opacities, may be volume overloaded - CCM consulted, appreciate recommendations - Intubated on 11/06, ETT exchanged on 11/11 - 11/11 Bronchoscopy--Complicated by spontaneous pneumothorax - 11/11 S/p chest tube placement for right pneumothorax, removed by patient on 11/15 - 11/15 Repeat CXR with resolve Pneumo - This am Vent Setting:A/C-35%,6,16,350 - Today ABG pending - Continue Nebs treatment - VAP bundle addressed - Aspiration precaution HOB above 30 - ABG and CXR per [facility] - Continue SPO2 monitoring for SPO2 goal above 92% #CHF- EF 30-35% with PPM #Hypotension-Resolved #Septic Kristian - Was on 3 pressors initially - BP remains stable - SR on the monitor, HR 70-90s - 11/04 Echo-EF 30-35% - Cardiology on consult - Continue beta-charleen - Not on aspirin due to allergy - Statins on hold due to elevated LFTs - Continue blood pressure monitor per protocol - Maintain MAP above 65 #Acute Blood Loss #Acute GI Bleed #Acute Microcytic Anemia - Report of melena &black tarry stools - s/p a total of 4units of PRBCs since admit - Now on protonix gtt - GI on consult, no intervention at this time - H&H stable this am - Keep patient NPO - Serial H&H Q6hrs - Transfuse for H&H less than 7 - Hold AC for now #Hypernatremia - Unable to give FWF due to NPO status - D5w was added - Strict intake and output - Continue to monitor and replace electrolytes as needed - Trend BMP #Acute DVT in RLE - BLE doppler + Acute DVT in the right external iliac vein, common femoral vein, and superior aspect of femoral vein - Was on Therapeutic Lovenox- held to due GI Bleed - Plan for possible IVC filter placement today by Vascular Surg #Acute Encephalopathy-improved - Probably r/t sedation vs infectious process - Awake and following commands - CT head noted - Neurology consulted - Resumed Buspar #Transaminitis/Shock Liver - Probably due to bacteria/spetic shock - Continue to Trend LFTs The high probability of a clinically significant, sudden or life threatening deterioration of the [multi] system(s) required my full and direct attention, intervention and personal management. The aggregate critical care time was [60] minutes. This time is in addition to time spent performing reported procedures but includes the following: [x] Data Review and interpretation [x] Patient assessment and monitoring of vital signs [x] Documentation [x] Medication orders and management Disposition Plan: ICU Total Time Spent with Patient (Minutes): 60 Hospitalist Physical - Constitutional Vitals: Temp Pulse Resp BP Pulse Ox 97.8 F 73 18 125/59 100 11/17/21 16:00 11/17/21 16:23 11/17/21 15:30 11/17/21 16:23 11/17/21 16:23 General appearance: Present: no acute distress HEART Score - HEART Score Troponin: Troponin T 0.033 ng/mL (0.00-0.029) H 11/05/21 06:11 Results - Labs CBC & Chem 7: 11/17/21 11:55 11/17/21 05:56 Labs: Laboratory Last Values WBC 25.1 K/mm3 (4.5-11.0) H 11/17/21 05:56 RBC 3.47 M/mm3 (3.65-5.03) L 11/17/21 05:56 Hgb 8.3 gm/dl (10.1-14.3) L 11/17/21 11:55 Hct 26.9 % (30.3-42.9) L 11/17/21 11:55 MCV 82 fl (79-97) 11/17/21 05:56 MCH 25 pg (28-32) L 11/17/21 05:56 MCHC 31 % (30-34) 11/17/21 05:56 RDW 22.3 % (13.2-15.2) H 11/17/21 05:56 Plt Count 237 K/mm3 (140-440) 11/17/21 05:56 Add Manual Diff Complete 11/16/21 15:25 Total Counted 100 11/16/21 15:25 Seg Neutrophils % Hand Polisher 11/06/21 15:50 Seg Neuts % (Manual) 87.0 % (40.0-70.0) H 11/16/21 15:25 Band Neutrophils % 0 % 11/16/21 15:25 Lymphocytes % (Manual) 8.0 % (13.4-35.0) L 11/16/21 15:25 Reactive Lymphs % (Man) 0 % 11/16/21 15:25 Monocytes % (Manual) 5.0 % (0.0-7.3) 11/16/21 15:25 Eosinophils % (Manual) 0 % (0.0-4.3) 11/16/21 15:25 Basophils % (Manual) 0 % (0.0-1.8) 11/16/21 15:25 Metamyelocytes % 0 % 11/16/21 15:25 Myelocytes % 0 % 11/16/21 15:25 Promyelocytes % 0 % 11/16/21 15:25 Blast Cells % 0 % 11/16/21 15:25 Nucleated RBC % Not Reportable 11/16/21 15:25 Seg Neutrophils # Man 15.0 K/mm3 (1.8-7.7) H 11/16/21 15:25 Band Neutrophils # 0.0 K/mm3 11/16/21 15:25 Lymphocytes # (Manual) 1.4 K/mm3 (1.2-5.4) 11/16/21 15:25 Abs React Lymphs (Man) 0.0 K/mm3 11/16/21 15:25 Monocytes # (Manual) 0.9 K/mm3 (0.0-0.8) H 11/16/21 15:25 Eosinophils # (Manual) 0.0 K/mm3 (0.0-0.4) 11/16/21 15:25 Basophils # (Manual) 0.0 K/mm3 (0.0-0.1) 11/16/21 15:25 Metamyelocytes # 0.0 K/mm3 11/16/21 15:25 Myelocytes # 0.0 K/mm3 11/16/21 15:25 Promyelocytes # 0.0 K/mm3 11/16/21 15:25 Blast Cells # 0.0 K/mm3 11/16/21 15:25 WBC Morphology Not Reportable 11/16/21 15:25 Hypersegmented Neuts Not Reportable 11/16/21 15:25 Hyposegmented Neuts Not Reportable 11/16/21 15:25 Hypogranular Neuts Not Reportable 11/16/21 15:25 Smudge Cells Not Reportable 11/16/21 15:25 Toxic Granulation Not Reportable 11/16/21 15:25 Toxic Vacuolation Not Reportable 11/16/21 15:25 Dohle Bodies Not Reportable 11/16/21 15:25 Pelger-Huet Anomaly Not Reportable 11/16/21 15:25 Irina Rods Not Reportable 11/16/21 15:25 Platelet Estimate Consistent w auto 11/16/21 15:25 Clumped Platelets Rare 11/16/21 15:25 Plt Clumps, EDTA Not Reportable 11/16/21 15:25 Large Platelets Not Reportable 11/16/21 15:25 Giant Platelets Not Reportable 11/16/21 15:25 Platelet Satelliting Not Reportable 11/16/21 15:25 Plt Morphology Comment Not Reportable 11/16/21 15:25 RBC Morphology Not Reportable 11/16/21 15:25 Dimorphic RBCs Not Reportable 11/16/21 15:25 Polychromasia Not Reportable 11/16/21 15:25 Hypochromasia 2+ 11/16/21 15:25 Poikilocytosis Not Reportable 11/16/21 15:25 Anisocytosis 2+ 11/16/21 15:25 Microcytosis Not Reportable 11/16/21 15:25 Macrocytosis Not Reportable 11/16/21 15:25 Spherocytes Not Reportable 11/16/21 15:25 Pappenheimer Bodies Not Reportable 11/16/21 15:25 Sickle Cells Not Reportable 11/16/21 15:25 Target Cells 2+ 11/16/21 15:25 Tear Drop Cells Not Reportable 11/16/21 15:25 Ovalocytes Not Reportable 11/16/21 15:25 Helmet Cells Not Reportable 11/16/21 15:25 [place] Bodies Not Reportable 11/16/21 15:25 [place] Rings Not Reportable 11/16/21 15:25 [place] Cells Not Reportable 11/16/21 15:25 Bite Cells Not Reportable 11/16/21 15:25 Crenated Cell Not Reportable 11/16/21 15:25 Elliptocytes Not Reportable 11/16/21 15:25 Acanthocytes (Spur) Not Reportable 11/16/21 15:25 Rouleaux Not Reportable 11/16/21 15:25 Hemoglobin C Crystals Not Reportable 11/16/21 15:25 Schistocytes Not Reportable 11/16/21 15:25 Malaria parasites Not Reportable 11/16/21 15:25 Godfrey Bodies Not Reportable 11/16/21 15:25 Hem Pathologist Commnt No 11/16/21 15:25 PT 18.6 Sec. (12.2-14.9) H 11/03/21 22:32 INR 1.40 (0.87-1.13) H 11/03/21 22:32 APTT 28.9 Sec. (24.2-36.6) 11/03/21 22:32 D-Dimer 2655.00 ng/mlDDU (0-234) H 11/11/21 04:28 ABG pH 7.407 pH Units (7.350-7.450) 11/14/21 16:14 ABG pCO2 45.6 mm Hg 11/14/21 16:14 ABG pO2 80.6 mm Hg (80.0-90.0) 11/14/21 16:14 ABG HCO3 28.0 mmol/L (20.0-26.0) H 11/14/21 16:14 ABG O2 Saturation 97.0 % (95.0-99.0) 11/14/21 16:14 ABG O2 Content 7.8 (0.0-44) 11/14/21 16:14 ABG Base Excess 3.1 mmol/L (-2.0-3.0) H 11/14/21 16:14 ABG Hemoglobin 5.8 gm/dl (12.0-16.0) L 11/14/21 16:14 ABG Carboxyhemoglobin 2.0 % (0.0-5.0) 11/14/21 16:14 ABG Methemoglobin 0.3 % (0.0-1.5) 11/14/21 16:14 Oxyhemoglobin 94.8 % (95.0-99.0) L 11/14/21 16:14 FiO2 35 % 11/14/21 16:14 Sodium 151 mmol/L (137-145) H 11/17/21 05:56 Potassium 3.8 mmol/L (3.6-5.0) 11/17/21 05:56 Chloride 113.6 mmol/L (98-107) H 11/17/21 05:56 Carbon Dioxide 25 mmol/L (22-30) 11/17/21 05:56 Anion Gap 16 mmol/L 11/17/21 05:56 BUN 85 mg/dL (7-17) H 11/17/21 05:56 Creatinine 1.0 mg/dL (0.6-1.2) 11/17/21 05:56 Estimated GFR 53 ml/min 11/17/21 05:56 BUN/Creatinine Ratio 85 % 11/17/21 05:56 Glucose 132 mg/dL (65-100) H 11/17/21 05:56 POC Glucose 121 mg/dL (70-105) H 11/17/21 11:00 Lactic Acid 3.70 mmol/L (0.7-2.0) H* 11/03/21 22:32 Calcium 7.8 mg/dL (8.4-10.2) L 11/17/21 05:56 Phosphorus 2.90 mg/dL (2.5-4.5) 11/17/21 05:56 Magnesium 1.90 mg/dL (1.7-2.3) 11/17/21 05:56 Ferritin 52.6 ng/mL (10.0-200.0) 11/05/21 06:11 Total Bilirubin 0.50 mg/dL (0.1-1.2) 11/17/21 05:56 Direct Bilirubin < 0.2 mg/dL (0-0.2) 11/11/21 04:28 Indirect Bilirubin 0.1 mg/dL 11/11/21 04:28 AST 36 units/L (5-40) 11/17/21 05:56 ALT 47 units/L (7-56) 11/17/21 05:56 Alkaline Phosphatase 107 units/L (35-129) 11/17/21 05:56 Ammonia 42.0 umol/L (25-60) 11/10/21 14:08 Lactate Dehydrogenase 187 units/L (91-180) H 11/05/21 06:11 Troponin T 0.033 ng/mL (0.00-0.029) H 11/05/21 06:11 C-Reactive Protein 22.20 mg/dL (0.00-1.30) H 11/05/21 06:11 NT-Pro-B Natriuret Pep 7895 pg/mL (0-900) H 11/03/21 22:32 Total Protein 5.1 g/dL (6.3-8.2) L 11/17/21 05:56 Albumin 2.2 g/dL (3.9-5) L 11/17/21 05:56 Albumin/Globulin Ratio 0.8 % 11/17/21 05:56 Triglycerides 66 mg/dL (2-149) 11/03/21 22:32 Cholesterol 80 mg/dL (50-199) 11/03/21 22:32 LDL Cholesterol Direct 34 mg/dL (50-130) L 11/03/21 22:32 HDL Cholesterol 42 mg/dL (40-59) 11/03/21 22: Cholesterol/HDL Ratio 1.90 % 11/03/21 22:32 Vitamin B12 1823 pg/mL (211-911) H 11/10/21 14:08 TSH 1.510 mlU/mL (0.270-4.200) 11/10/21 14:08 Urine Color Yellow (Yellow) 11/11/21 09:00 Urine Turbidity Slightly-cloudy (Clear) 11/11/21 09:00 Urine pH 5.0 (5.0-7.0) 11/11/21 09:00 Ur Specific Bliss 1.009 (1.003-1.030) 11/11/21 09:00 Urine Protein <15 mg/dl mg/dL (Negative) 11/11/21 09:00 Urine Glucose (UA) Neg mg/dL (Negative) 11/11/21 09:00 Urine Ketones Neg mg/dL (Negative) 11/11/21 09:00 Urine Blood Mod (Negative) 11/11/21 09:00 Urine Nitrite Neg (Negative) 11/11/21 09:00 Urine Bilirubin Neg (Negative) 11/11/21 09:00 Urine Urobilinogen < 2.0 mg/dL (<2.0) 11/11/21 09:00 Ur Leukocyte Esterase Neg (Negative) 11/11/21 09:00 Urine WBC (Auto) < 1.0 /HPF (0.0-6.0) 11/11/21 09:00 Urine RBC (Auto) < 1.0 /HPF (0.0-6.0) 11/11/21 09:00 Coronavirus (PCR) Negative (Negative) 11/10/21 08:30 Blood Type O POSITIVE 11/16/21 14:00 Antibody Screen Negative 11/16/21 14:00 Crossmatch See Detail 11/16/21 14:00 Microbiology: Microbiology 11/16/21 15:25 Stool Stool Occult Blood (KIRAN) - Final 11/11/21 14:22 Peripheral/Venous Blood Culture - Final NO GROWTH AFTER 5 DAYS 11/11/21 14:36 Peripheral/Venous Blood Culture - Final NO GROWTH AFTER 5 DAYS Gamble/IV: Voiding Method Indwelling Catheter Active Medications - Current Medications Current Medications: Generic Name Dose Route Start Last Admin Trade Name Freq PRN Reason Stop Dose Admin Acetaminophen 650 mg 11/04/21 02:03 11/16/21 15:43 Acetaminophen 325 Mg Tab PO 650 mg Q6H PRN Administration Pain MILD(1-3)/Fever >100.5/RODRIGUEZ Hydrocodone Bitart/Acetaminophen 1 each 11/15/21 20:00 11/17/21 13:58 Hydrocodone/Acetaminophen 10-325mg Tab PO 11/20/21 19:59 Not Given TID YOSSI Lipase/Protease/Amylase 1 each 11/08/21 11:09 Lipase 10,500/Protease 25,000/Amylase 43,750 (Units) Dr Lema FEEDTUBE PRN PRN For Clogged Feeding Tube Dextrose 0 ml 11/10/21 10:52 Dextrose 10% *Hypoglycemia IV PRN PRN Hypoglycemia Docusate Sodium 100 mg 11/08/21 12:00 11/17/21 09:41 Docusate Sodium 100 Mg/10 Ml Oral Liqd PO Not Given BID YOSSI Fentanyl 25 mcg 11/17/21 12:07 Fentanyl 100 Mcg/2 Ml Inj IV 11/19/21 12:06 Q2H PRN Pain , Severe (7-10) Fentanyl 1 applic 11/17/21 13:00 11/17/21 13:00 Fentanyl 25 Mcg/Hr Patch 72hr TD 1 applic Q3D YOSSI Administration Hydrophilic Ointment 1 applic 11/06/21 04:02 Lip Therapy Vaseline TP Q2HR PRN Dry Lips NORepinephrine/NS 8 MG-250 ML 8 mg in 250 mls @ 3.75 mls/hr 11/05/21 09:00 11/17/21 11:43 Norepinephrine/Ns 8 Mg-250 Ml (Double Conc) IV 6 mcg/min TITRATE YOSSI 11.25 mls/hr Administration Protocol 2 MCG/MIN Vasopressin 20 unit/ Sodium 101 mls @ 9.09 mls/hr 11/05/21 23:00 11/06/21 01:00 Chloride IV 0.03 units/min TITR YOSSI 9.09 mls/hr Administration Protocol 0.03 UNITS/MIN Cefepime HCl 1 gm in 100 mls @ 200 mls/hr 11/12/21 16:00 11/17/21 07:50 Cefepime/Ns 1 Gm/100 Ml IV 200 mls/hr Q8H YOSSI Administration Protocol Pantoprazole Sodium 80 mg/ 100 mls @ 10 mls/hr 11/16/21 17:00 11/17/21 05:18 Sodium Chloride IV 8 mg/hr DIRECT YOSSI 10 mls/hr Administration 8 MG/HR Fentanyl Citrate 2,000 mcg in 100 mls @ 3.12 mls/hr 11/17/21 13:00 11/17/21 12:10 Fentanyl Drip Premix IV 1 mcg/kg/hr TITR YOSSI 3.12 mls/hr Administration Protocol 1 MCG/KG/HR Dextrose 1,000 mls @ 100 mls/hr 11/17/21 16:00 11/17/21 16:08 D5w IV 11/20/21 01:59 100 mls/hr DIRECT YOSSI Administration Insulin Human Lispro 0 unit 11/06/21 12:00 11/17/21 11:34 Insulin Lispro 100 Unit/Ml SUB-Q Not Given Q6HR [facility] Protocol Levothyroxine Sodium 125 mcg 11/05/21 07:00 11/17/21 05:44 Levothyroxine 125 Mcg Tab PO 125 mcg DAILY@0600 YOSSI Administration Magnesium Hydroxide 30 ml 11/04/21 02:03 Magnesium Hydroxide (Mom) Oral Liqd Udc PO Q4H PRN Constipation Multi-Ingred Cream/Lotion/Oil/Oint 1 applic 11/06/21 04:02 Mineral Oil/Petrolatum, White Ophth Oint 3.5 Gm OU Q4HR PRN Dry Eye(s) Ondansetron HCl 4 mg 11/04/21 02:03 11/05/21 15:48 Ondansetron 4 Mg/2 Ml Inj IV 4 mg Q8H PRN Administration Nausea And Vomiting Polyethylene Glycol 17 gm 01/22/22 12:00 11/17/21 09:41 Polyethylene Glycol 3350 17 Gm Powder PO Not Given QDAY YOSSI Senna 17.6 mg 11/08/21 22:00 11/17/21 09:41 Sennosides Oral Liqd 8.8 Mg/5 Ml Oral Liqd PO Not Given Q12HR YOSSI Simple Syrup 15 ml 11/08/21 11:09 Simple Syrup 15 Ml FEEDTUBE PRN PRN Hypoglycemia Simple Syrup 30 ml 11/08/21 11:09 Simple Syrup 15 Ml FEEDTUBE PRN PRN Hypoglycemia Sodium Bicarbonate 325 mg 11/08/21 11:09 Sodium Bicarbonate 325 Mg Tab FEEDTUBE PRN PRN For Clogged Feeding Tube Sodium Chloride 10 ml 11/04/21 10:00 11/17/21 09:59 Sodium Chloride 0.9% 10 Ml Flush Syringe IV 10 ml BID YOSSI Administration Sodium Chloride 10 ml 11/04/21 02:03 Sodium Chloride 0.9% 10 Ml Flush Syringe IV PRN PRN LINE FLUSH Sodium Chloride 10 ml 11/10/21 09:57 11/12/21 17:08 Sodium Chloride 0.9% 50 Ml Ivpb IV 10 ml PRN PRN Administration FLUSH Nutrition/Malnutrition Assess - Dietary Evaluation Nutrition/Malnutrition Findings: Nutrition Notes Start: 11/04/21 17:16 Freq: Status: Active Protocol: Document 11/17/21 15:18 [facility] (Rec: 11/17/21 15:27 [facility] [id number]) Nutrition Notes Initial or Follow up Reassessment Current Diagnosis Diabetes,Hypertension, Respiratory Failure Other Pertinent Diagnosis Septic shock, Bilat pneu, Anemia, GIB Current Diet NPO Labs/Tests Na 151 BUN 85 Pertinent Medications Levophed gtt, Vasopressin gtt, Protonix gtt, Fentanyl Height 5 ft Weight 62.4 kg [place] Body Weight (kg) 45.45 BMI 26.9 Weight change and time frame Wt change noted Weight Status Appropriate Subjective/Other Information Per RN, TF turned off sec to scheduled procedure today (IVC filter placement). Pt remains on vent support. #1 Nutrition Diagnosis Inadequate oral intake Diagnosis Progress(for reassessment Continues documentation) Is patient on ventilator? Yes Is Patient Ambulatory and/or Out of Bed No REE-([facility]-confined to bed) 1207.824 Calculation Used for Recommendations Mahad Tilley Additional Notes Pro needs 1.2-2g/k-125g/ day Fluid needs 1ml/kcal Nutrition Intervention Nutrition Support: Resume TF when medically feasible. Pt to either receive Vital AF 1.2 at 40ml/ hr or Glucerna 1.2 at 40ml/hr. Goal #1 Resume TF to meet nutrient needs Follow-Up By: 11/19/21 Additional Comments F/U: TF restart/tolerance, vent status, Na lab/water flush <FREDERICK DALTON - Last Filed: 11/18/21 10:15> Assessment and Plan Assessment and plan: I saw and evaluated the patient. Discussed with the nurse practitioner and agree with their findings and plan as documented in this note. History Interval history: intubated and sedated. Hospitalist Physical - Constitutional Vitals: Temp Pulse Resp BP Pulse Ox 98.6 F 85 16 135/68 89 11/18/21 08:00 11/18/21 10:00 11/18/21 10:00 11/18/21 10:00 11/18/21 10:00 HEART Score - HEART Score Troponin: Troponin T 0.033 ng/mL (0.00-0.029) H 11/05/21 06:11 Results - Labs CBC & Chem 7: 11/18/21 05:10 11/18/21 07:10 Labs: Laboratory Last Values WBC 12.5 K/mm3 (4.5-11.0) H 11/18/21 05:10 RBC 2.39 M/mm3 (3.65-5.03) L 11/18/21 05:10 Hgb 6.1 gm/dl (10.1-14.3) L 11/18/21 05:10 Hct 20.2 % (30.3-42.9) L 11/18/21 05:10 MCV 85 fl (79-97) 11/18/21 05:10 MCH 25 pg (28-32) L 11/18/21 05:10 MCHC 30 % (30-34) 11/18/21 05:10 RDW 23.2 % (13.2-15.2) H 11/18/21 05:10 Plt Count 150 K/mm3 (140-440) 11/18/21 05:10 Add Manual Diff Complete 11/16/21 15:25 Total Counted 100 11/16/21 15:25 Seg Neutrophils % Hand Polisher 11/06/21 15:50 Seg Neuts % (Manual) 87.0 % (40.0-70.0) H 11/16/21 15:25 Band Neutrophils % 0 % 11/16/21 15:25 Lymphocytes % (Manual) 8.0 % (13.4-35.0) L 11/16/21 15:25 Reactive Lymphs % (Man) 0 % 11/16/21 15:25 Monocytes % (Manual) 5.0 % (0.0-7.3) 11/16/21 15:25 Eosinophils % (Manual) 0 % (0.0-4.3) 11/16/21 15:25 Basophils % (Manual) 0 % (0.0-1.8) 11/16/21 15:25 Metamyelocytes % 0 % 11/16/21 15:25 Myelocytes % 0 % 11/16/21 15:25 Promyelocytes % 0 % 11/16/21 15:25 Blast Cells % 0 % 11/16/21 15:25 Nucleated RBC % Not Reportable 11/16/21 15:25 Seg Neutrophils # Man 15.0 K/mm3 (1.8-7.7) H 11/16/21 15:25 Band Neutrophils # 0.0 K/mm3 11/16/21 15:25 Lymphocytes # (Manual) 1.4 K/mm3 (1.2-5.4) 11/16/21 15:25 Abs React Lymphs (Man) 0.0 K/mm3 11/16/21 15:25 Monocytes # (Manual) 0.9 K/mm3 (0.0-0.8) H 11/16/21 15:25 Eosinophils # (Manual) 0.0 K/mm3 (0.0-0.4) 11/16/21 15:25 Basophils # (Manual) 0.0 K/mm3 (0.0-0.1) 11/16/21 15:25 Metamyelocytes # 0.0 K/mm3 11/16/21 15:25 Myelocytes # 0.0 K/mm3 11/16/21 15:25 Promyelocytes # 0.0 K/mm3 11/16/21 15:25 Blast Cells # 0.0 K/mm3 11/16/21 15:25 WBC Morphology Not Reportable 11/16/21 15:25 Hypersegmented Neuts Not Reportable 11/16/21 15:25 Hyposegmented Neuts Not Reportable 11/16/21 15:25 Hypogranular Neuts Not Reportable 11/16/21 15:25 Smudge Cells Not Reportable 11/16/21 15:25 Toxic Granulation Not Reportable 11/16/21 15:25 Toxic Vacuolation Not Reportable 11/16/21 15:25 Dohle Bodies Not Reportable 11/16/21 15:25 Pelger-Huet Anomaly Not Reportable 11/16/21 15:25 Irina Rods Not Reportable 11/16/21 15:25 Platelet Estimate Consistent w auto 11/16/21 15:25 Clumped Platelets Rare 11/16/21 15:25 Plt Clumps, EDTA Not Reportable 11/16/21 15:25 Large Platelets Not Reportable 11/16/21 15:25 Giant Platelets Not Reportable 11/16/21 15:25 Platelet Satelliting Not Reportable 11/16/21 15:25 Plt Morphology Comment Not Reportable 11/16/21 15:25 RBC Morphology Not Reportable 11/16/21 15:25 Dimorphic RBCs Not Reportable 11/16/21 15:25 Polychromasia Not Reportable 11/16/21 15:25 Hypochromasia 2+ 11/16/21 15:25 Poikilocytosis Not Reportable 11/16/21 15:25 Anisocytosis 2+ 11/16/21 15:25 Microcytosis Not Reportable 11/16/21 15:25 Macrocytosis Not Reportable 11/16/21 15:25 Spherocytes Not Reportable 11/16/21 15:25 Pappenheimer Bodies Not Reportable 11/16/21 15:25 Sickle Cells Not Reportable 11/16/21 15:25 Target Cells 2+ 11/16/21 15:25 Tear Drop Cells Not Reportable 11/16/21 15:25 Ovalocytes Not Reportable 11/16/21 15:25 Helmet Cells Not Reportable 11/16/21 15:25 [place] Bodies Not Reportable 11/16/21 15:25 [place] Rings Not Reportable 11/16/21 15:25 [place] Cells Not Reportable 11/16/21 15:25 Bite Cells Not Reportable 11/16/21 15:25 Crenated Cell Not Reportable 11/16/21 15:25 Elliptocytes Not Reportable 11/16/21 15:25 Acanthocytes (Spur) Not Reportable 11/16/21 15:25 Rouleaux Not Reportable 11/16/21 15:25 Hemoglobin C Crystals Not Reportable 11/16/21 15:25 Schistocytes Not Reportable 11/16/21 15:25 Malaria parasites Not Reportable 11/16/21 15:25 [place] Bodies Not Reportable 11/16/21 15:25 Hem Pathologist Commnt No 11/16/21 15:25 PT 18.6 Sec. (12.2-14.9) H 11/03/21 22:32 INR 1.40 (0.87-1.13) H 11/03/21 22:32 APTT 28.9 Sec. (24.2-36.6) 11/03/21 22:32 D-Dimer 2655.00 ng/mlDDU (0-234) H 11/11/21 04:28 ABG pH 7.407 pH Units (7.350-7.450) 11/14/21 16:14 ABG pCO2 45.6 mm Hg 11/14/21 16:14 ABG pO2 80.6 mm Hg (80.0-90.0) 11/14/21 16:14 ABG HCO3 28.0 mmol/L (20.0-26.0) H 11/14/21 16:14 ABG O2 Saturation 97.0 % (95.0-99.0) 11/14/21 16:14 ABG O2 Content 7.8 (0.0-44) 11/14/21 16:14 ABG Base Excess 3.1 mmol/L (-2.0-3.0) H 11/14/21 16:14 ABG Hemoglobin 5.8 gm/dl (12.0-16.0) L 11/14/21 16:14 ABG Carboxyhemoglobin 2.0 % (0.0-5.0) 11/14/21 16:14 ABG Methemoglobin 0.3 % (0.0-1.5) 11/14/21 16:14 Oxyhemoglobin 94.8 % (95.0-99.0) L 11/14/21 16:14 FiO2 35 % 11/14/21 16:14 Sodium 148 mmol/L (137-145) H D 11/18/21 07:10 Potassium 3.1 mmol/L (3.6-5.0) L 11/18/21 07:10 Chloride 111.9 mmol/L (98-107) H 11/18/21 07:10 Carbon Dioxide 27 mmol/L (22-30) 11/18/21 07:10 Anion Gap 12 mmol/L 11/18/21 07:10 BUN 63 mg/dL (7-17) H 11/18/21 07:10 Creatinine 1.0 mg/dL (0.6-1.2) 11/18/21 07:10 Estimated GFR 53 ml/min 11/18/21 07:10 BUN/Creatinine Ratio 63 % 11/18/21 07:10 Glucose 141 mg/dL (65-100) H 11/18/21 07:10 POC Glucose 124 mg/dL (70-105) H 11/18/21 05:23 Lactic Acid 3.70 mmol/L (0.7-2.0) H* 11/03/21 22:32 Calcium 8.1 mg/dL (8.4-10.2) L D 11/18/21 07:10 Phosphorus 2.20 mg/dL (2.5-4.5) L D 11/18/21 05:10 Magnesium 1.50 mg/dL (1.7-2.3) L 11/18/21 05:10 Ferritin 52.6 ng/mL (10.0-200.0) 11/05/21 06:11 Total Bilirubin 0.50 mg/dL (0.1-1.2) 11/17/21 05:56 Direct Bilirubin < 0.2 mg/dL (0-0.2) 11/11/21 04:28 Indirect Bilirubin 0.1 mg/dL 11/11/21 04:28 AST 36 units/L (5-40) 11/17/21 05:56 ALT 47 units/L (7-56) 11/17/21 05:56 Alkaline Phosphatase 107 units/L (35-129) 11/17/21 05:56 Ammonia 42.0 umol/L (25-60) 11/10/21 14:08 Lactate Dehydrogenase 187 units/L (91-180) H 11/05/21 06:11 Troponin T 0.033 ng/mL (0.00-0.029) H 11/05/21 06:11 C-Reactive Protein 22.20 mg/dL (0.00-1.30) H 11/05/21 06:11 NT-Pro-B Natriuret Pep 7895 pg/mL (0-900) H 11/03/21 22:32 Total Protein 5.1 g/dL (6.3-8.2) L 11/17/21 05:56 Albumin 2.2 g/dL (3.9-5) L 11/17/21 05:56 Albumin/Globulin Ratio 0.8 % 11/17/21 05:56 Triglycerides 66 mg/dL (2-149) 11/03/21 22:32 Cholesterol 80 mg/dL (50-199) 11/03/21 22:32 LDL Cholesterol Direct 34 mg/dL (50-130) L 11/03/21 22:32 HDL Cholesterol 42 mg/dL (40-59) 11/03/21 22:32 Cholesterol/HDL Ratio 1.90 % 11/03/21 22:32 Vitamin B12 1823 pg/mL (211-911) H 11/10/21 14:08 TSH 1.510 mlU/mL (0.270-4.200) 11/10/21 14:08 Urine Color Yellow (Yellow) 11/11/21 09:00 Urine Turbidity Slightly-cloudy (Clear) 11/11/21 09:00 Urine pH 5.0 (5.0-7.0) 11/11/21 09:00 Ur Specific Bliss 1.009 (1.003-1.030) 11/11/21 09:00 Urine Protein <15 mg/dl mg/dL (Negative) 11/11/21 09:00 Urine Glucose (UA) Neg mg/dL (Negative) 11/11/21 09:00 Urine Ketones Neg mg/dL (Negative) 11/11/21 09:00 Urine Blood Mod (Negative) 11/11/21 09:00 Urine Nitrite Neg (Negative) 11/11/21 09:00 Urine Bilirubin Neg (Negative) 11/11/21 09:00 Urine Urobilinogen < 2.0 mg/dL (<2.0) 11/11/21 09:00 Ur Leukocyte Esterase Neg (Negative) 11/11/21 09:00 Urine WBC (Auto) < 1.0 /HPF (0.0-6.0) 11/11/21 09:00 Urine RBC (Auto) < 1.0 /HPF (0.0-6.0) 11/11/21 09:00 Coronavirus (PCR) Negative (Negative) 11/10/21 08:30 Blood Type O POSITIVE 11/16/21 14:00 Antibody Screen Negative 11/16/21 14:00 Crossmatch See Detail 11/16/21 14:00 Gamble/IV: Voiding Method Indwelling Catheter Active Medications - Current Medications Current Medications: Generic Name Dose Route Start Last Admin Trade Name Freq PRN Reason Stop Dose Admin Acetaminophen 650 mg 11/04/21 02:03 11/16/21 15:43 Acetaminophen 325 Mg Tab PO 650 mg Q6H PRN Administration Pain MILD(1-3)/Fever >100.5/RODRIGUEZ Hydrocodone Bitart/Acetaminophen 1 each 11/15/21 20:00 11/18/21 09:58 Hydrocodone/Acetaminophen 10-325mg Tab PO 11/20/21 19:59 Not Given TID YOSSI Lipase/Protease/Amylase 1 each 11/08/21 11:09 Lipase 10,500/Protease 25,000/Amylase 43,750 (Units) Dr Lema FEEDTUBE PRN PRN For Clogged Feeding Tube Buspirone HCl 7.5 mg 11/17/21 22:00 11/18/21 09:58 Buspirone 5 Mg Tab PO Not Given BID YOSSI Dextrose 0 ml 11/10/21 10:52 Dextrose 10% *Hypoglycemia IV PRN PRN Hypoglycemia Docusate Sodium 100 mg 11/08/21 12:00 11/18/21 09:58 Docusate Sodium 100 Mg/10 Ml Oral Liqd PO Not Given BID YOSSI Fentanyl 25 mcg 11/17/21 12:07 11/18/21 09:18 Fentanyl 100 Mcg/2 Ml Inj IV 11/19/21 12:06 25 mcg Q2H PRN Administration Pain , Severe (7-10) Fentanyl 1 applic 11/17/21 13:00 11/17/21 13:00 Fentanyl 25 Mcg/Hr Patch 72hr TD 1 applic Q3D YOSSI Administration Hydrophilic Ointment 1 applic 11/06/21 04:02 Lip Therapy Vaseline TP Q2HR PRN Dry Lips NORepinephrine/NS 8 MG-250 ML 8 mg in 250 mls @ 3.75 mls/hr 11/05/21 09:00 11/18/21 03:26 Norepinephrine/Ns 8 Mg-250 Ml (Double Conc) IV 0 mcg/min TITRATE YOSSI 0 mls/hr Titration Protocol 2 MCG/MIN Vasopressin 20 unit/ Sodium 101 mls @ 9.09 mls/hr 11/05/21 23:00 11/06/21 01:00 Chloride IV 0.03 units/min TITR YOSSI 9.09 mls/hr Administration Protocol 0.03 UNITS/MIN Cefepime HCl 1 gm in 100 mls @ 200 mls/hr 11/12/21 16:00 11/18/21 09:16 Cefepime/Ns 1 Gm/100 Ml IV 200 mls/hr Q8H YOSSI Administration Protocol Pantoprazole Sodium 80 mg/ 100 mls @ 10 mls/hr 11/16/21 17:00 11/18/21 04:58 Sodium Chloride IV 8 mg/hr DIRECT YOSSI 10 mls/hr Administration 8 MG/HR Fentanyl Citrate 2,000 mcg in 100 mls @ 3.12 mls/hr 11/17/21 13:00 11/17/21 19:05 Fentanyl Drip Premix IV 0 mcg/kg/hr TITR YOSSI 0 mls/hr Titration Protocol 1 MCG/KG/HR Dextrose 1,000 mls @ 100 mls/hr 11/17/21 16:00 11/18/21 03:25 D5w IV 11/20/21 01:59 100 mls/hr DIRECT YOSSI Administration Magnesium Sulfate 4 gm in 100 mls @ 25 mls/hr 11/18/21 10:00 11/18/21 09:16 Magnesium Sulfate 4gm/100ml IV 11/18/21 13:59 25 mls/hr ONCE ONE Administration Potassium Phosphate 45 mmol/ 515 mls @ 85 mls/hr 11/18/21 10:00 11/18/21 09:58 Sodium Chloride IV 11/18/21 16:03 85 mls/hr ONCE ONE Administration Insulin Human Lispro 0 unit 11/06/21 12:00 11/18/21 05:28 Insulin Lispro 100 Unit/Ml SUB-Q Not Given Q6HR [facility] Protocol Levothyroxine Sodium 125 mcg 11/05/21 07:00 11/18/21 05:17 Levothyroxine 125 Mcg Tab PO Not Given DAILY@0600 YOSSI Magnesium Hydroxide 30 ml 11/04/21 02:03 Magnesium Hydroxide (Mom) Oral Liqd Udc PO Q4H PRN Constipation Multi-Ingred Cream/Lotion/Oil/Oint 1 applic 11/06/21 04:02 Mineral Oil/Petrolatum, White Ophth Oint 3.5 Gm OU Q4HR PRN Dry Eye(s) Ondansetron HCl 4 mg 11/04/21 02:03 11/05/21 15:48 Ondansetron 4 Mg/2 Ml Inj IV 4 mg Q8H PRN Administration Nausea And Vomiting Polyethylene Glycol 17 gm 11/08/21 12:00 11/18/21 09:58 Polyethylene Glycol 3350 17 Gm Powder PO Not Given QDAY [facility] Senna 17.6 mg 11/08/21 22:00 11/18/21 09:59 Sennosides Oral Liqd 8.8 Mg/5 Ml Oral Liqd PO Not Given Q12HR YOSSI Simple Syrup 15 ml 11/08/21 11:09 Simple Syrup 15 Ml FEEDTUBE PRN PRN Hypoglycemia Simple Syrup 30 ml 11/08/21 11:09 Simple Syrup 15 Ml FEEDTUBE PRN PRN Hypoglycemia Sodium Bicarbonate 325 mg 11/08/21 11:09 Sodium Bicarbonate 325 Mg Tab FEEDTUBE PRN PRN For Clogged Feeding Tube Sodium Chloride 10 ml 11/04/21 10:00 11/18/21 09:59 Sodium Chloride 0.9% 10 Ml Flush Syringe IV 10 ml BID YOSSI Administration Sodium Chloride 10 ml 11/04/21 02:03 Sodium Chloride 0.9% 10 Ml Flush Syringe IV PRN PRN LINE FLUSH Sodium Chloride 10 ml 11/10/21 09:57 11/17/21 20:47 Sodium Chloride 0.9% 50 Ml Ivpb IV 10 ml PRN PRN Administration FLUSH Nutrition/Malnutrition Assess - Dietary Evaluation Nutrition/Malnutrition Findings: Nutrition Notes Start: 11/04/21 17:16 Freq: Status: Active Protocol: Document 11/17/21 15:18 YOVANI (Rec: 11/17/21 15:27 MNALL [id number]) Nutrition Notes Initial or Follow up Reassessment Current Diagnosis Diabetes,Hypertension, Respiratory Failure Other Pertinent Diagnosis Septic shock, Bilat pneu, Anemia, GIB Current Diet NPO Labs/Tests Na 151 BUN 85 Pertinent Medications Levophed gtt, Vasopressin gtt, Protonix gtt, Fentanyl Height 5 ft Weight 62.4 kg [place] Body Weight (kg) 45.45 BMI 26.9 Weight change and time frame Wt change noted Weight Status Appropriate Subjective/Other Information Per RN, TF turned off sec to scheduled procedure today (IVC filter placement). Pt remains on vent support. #1 Nutrition Diagnosis Inadequate oral intake Diagnosis Progress(for reassessment Continues documentation) Is patient on ventilator? Yes Is Patient Ambulatory and/or Out of Bed No REE-(Maynard-St. Jeor-confined to bed) [phone] Calculation Used for Recommendations Maynard-St Jeor Additional Notes Pro needs 1.2-2g/k-125g/ day Fluid needs 1ml/kcal Nutrition Intervention Nutrition Support: Resume TF when medically feasible. Pt to either receive Vital AF 1.2 at 40ml/ hr or Glucerna 1.2 at 40ml/hr. Goal #1 Resume TF to meet nutrient needs Follow-Up By: 11/19/21 Additional Comments F/U: TF restart/tolerance, vent status, Na lab/water flush
[2021-11-17 20:19] LABS: Hematocrit 24.8 % (30.3-42.9); Hemoglobin 7.5 gm/dl (10.1-14.3)
[2021-11-17] MEDS: fentaNYL 100 MCG/2 ML INJ IV PRN (20:46)
[2021-11-17] MEDS: SODIUM CHLORIDE 0.9% 50 ML IVPB IV PRN (20:47)
[2021-11-17] MEDS: busPIRone 5 MG TAB PO SCH (21:55)
[2021-11-18 00:48] LABS: Hematocrit 23.6 % (30.3-42.9); Hemoglobin 7.1 gm/dl (10.1-14.3)
[2021-11-18] MEDS: INSULIN LISPRO 100 UNIT/ML SUB-Q SCH ×4 (00:51→19:02)
[2021-11-18] MEDS: FREE WATER PO SCH ×5 (01:26→21:58)
[2021-11-18] MEDS: CEFEPIME/NS 1 GM/100 ML 1 GM/100 ML BAG IV SCH ×4 (01:26→23:30)
[2021-11-18] MEDS: DEXTROSE 5% IN WATER 1,000 ML IV SCH ×2 (03:25→14:08)
[2021-11-18] MEDS: PANTOPRAZOLE 80 MG in SODIUM CHLORIDE 0.9% 100 ML IV SCH ×2 (04:58→17:00)
[2021-11-18] MEDS: fentaNYL 100 MCG/2 ML INJ IV PRN ×2 (05:05→09:18)
[2021-11-18] MEDS: LEVOTHYROXINE 125 MCG TAB PO SCH (05:17)
[2021-11-18 05:53] LABS: Hematocrit 20.2 % (30.3-42.9); Hemoglobin 6.1 gm/dl (10.1-14.3); Mean Corpuscular HGB Conc 30 % (30-34); Mean Corpuscular Volume 85 fl (79-97); Platelet Count 150 K/mm3 (140-440); Red Blood Count 2.39 M/mm3 (3.65-5.03)
[2021-11-18 05:56] LABS: Red Cell Distribution Width 23.2 % (13.2-15.2)
[2021-11-18] MEDS ORDERED: SODIUM CHLORIDE 0.9% 500 ML 500 ML IV ONE ×2 (06:04→09:40)
[2021-11-18 07:36] LABS: Calcium 8.1 mg/dL (8.4-10.2)
--- NOTE | 2021-11-18 08:44 | Gastroenterology Progress Note ---
Assessment and Plan Patient with occult blood positive stool More rapid drop in hemoglobin over the last 24 hours Requiring multiple blood transfusions in the last 48 hours despite PPI Therefore this juncture now benefits of EGD outweighs risks Spoke with the patient's and explained to him After patient gets 1 unit PRBC will schedule EGD for today - Patient Problems (1) Anemia Current Visit: Yes Status: Acute (2) Occult blood positive stool Current Visit: Yes Status: Acute Subjective Date of service: 11/18/21 Principal diagnosis: Septic shock; AHRF; Anemia; Pneumonia; L. pleural effusion; HFrEF; Pulm HTN Interval history: Patient intubated so unable to speak I spoke to the patient's nurse she reports patient still with dark stools Drop in hemoglobin despite blood transfusion noted Patient still on PPI Objective - Constitutional Vitals: Temp Pulse Resp BP Pulse Ox 98.6 F 78 17 120/51 97 11/18/21 08:00 11/18/21 08:38 11/18/21 08:38 11/18/21 08:38 11/18/21 08:38 General appearance: other (Intubated, awake) - EENT ENT: hearing intact - Respiratory Respiratory effort: other (Intubated) - Gastrointestinal General gastrointestinal: Present: soft - Labs CBC & Chem 7: 11/18/21 05:10 11/18/21 07:10 Labs: Laboratory Results - last 24 hr 11/16/21 11/17/21 11/17/21 14:00 11:00 11:55 WBC RBC Hgb 8.3 L Hct 26.9 L MCV MCH MCHC RDW Plt Count Sodium Potassium Chloride Carbon Dioxide Anion Gap BUN Creatinine Estimated GFR BUN/Creatinine Ratio Glucose POC Glucose 121 H Calcium Phosphorus Magnesium Crossmatch See Detail 11/17/21 11/17/21 11/18/21 18:04 18:55 00:26 WBC RBC Hgb 7.5 L 7.1 L Hct 24.8 L 23.6 L MCV MCH MCHC RDW Plt Count Sodium Potassium Chloride Carbon Dioxide Anion Gap BUN Creatinine Estimated GFR BUN/Creatinine Ratio Glucose POC Glucose 144 H Calcium Phosphorus Magnesium Crossmatch 11/18/21 11/18/21 11/18/21 00:43 05:10 05:10 WBC 12.5 H RBC 2.39 L Hgb 6.1 L Hct 20.2 L MCV 85 MCH 25 L MCHC 30 RDW 23.2 H Plt Count 150 Sodium 131 L D Potassium 2.9 L* D Chloride 97.8 L Carbon Dioxide 23 Anion Gap 13 BUN 58 H Creatinine 0.9 Estimated GFR 60 BUN/Creatinine Ratio 64 Glucose 665 H* POC Glucose 139 H Calcium 7.0 L Phosphorus 2.20 L D Magnesium 1.50 L Crossmatch 11/18/21 11/18/21 05:23 07:10 WBC RBC Hgb Hct MCV MCH MCHC RDW Plt Count Sodium 148 H D Potassium 3.1 L Chloride 111.9 H Carbon Dioxide 27 Anion Gap 12 BUN 63 H Creatinine 1.0 Estimated GFR 53 BUN/Creatinine Ratio 63 Glucose 141 H POC Glucose 124 H Calcium 8.1 L D Phosphorus Magnesium Crossmatch
[2021-11-18] MEDS: HYDROcodone/ACETAMINOPHEN 10-325MG TAB PO SCH ×3 (09:58→21:31)
[2021-11-18] MEDS: POLYETHYLENE GLYCOL 3350 17 GM POWDER PO SCH (09:58)
[2021-11-18] MEDS: DOCUSATE SODIUM 100 MG/10 ML ORAL LIQD PO SCH ×2 (09:58→21:58)
[2021-11-18] MEDS: busPIRone 5 MG TAB PO SCH ×2 (09:58→21:58)
[2021-11-18] MEDS: SENNOSIDES ORAL LIQD 8.8 MG/5 ML ORAL LIQD PO SCH ×2 (09:59→21:59)
[2021-11-18] MEDS ORDERED: MAGNESIUM SULFATE 4 GM/100 ML BAG IV ONE (10:00)
[2021-11-18] MEDS ORDERED: POTASSIUM PHOSPHATE 45 MMOL in SODIUM CHLORIDE 0.9% 500 ML 500 ML IV ONE (10:00)
--- NOTE | 2021-11-18 12:14 | Progress Note ---
<LONNIE MAURICE - Last Filed: 11/18/21 17:52> Assessment and Plan Assessment and plan: This is a 81-year-old female with known history of diabetes mellitus, hypertension, PPM, and arthritis admitted for sepsis and acute hypoxia respiratory failure 2/2 bilateral pneumonia requiring intubation and ventilatory support Hospital Course to date: 11/04/2021: Empiric therapy with iv levaquin/vancomycin. COVID PCR pending. Will consult ID. PCCM consulted, will follow recs. Hypotensive this AM, ordered bolus and fluids at 150 cc/hr. May require pressor support if bp does not improve. 11/05/2021: GBS on bcx +, currently on rocephin IV. Currently on bipap due to respiratory distress overnight. Worsening BL opacities on CXR. May be volume overload vs pneumonia. Unfortunately bp too low for lasix at this point. WIll continue levophed and bipap. Once able to tolerate, may do trial of albumin/lasi x. Call attempt made to Niraj, no response. Will try again tomorrow to update. 11/06/2021: Decompensated overnight requiring intubation. CXR shows worsening interstitial infiltrates. Currenlty on dopamine, levophed, vasopressin. PICC line ordered. Advised RN to place gamble for I/O monitoring. Would benefit from diuresis but very volume overloaded. Prognosis guarded 11/08: Off sedation this am, remains unresponsive only grimace to pain. Hold all sedatives agents for now, patient is off pressors this am. Hypernatremia from today's lab- D5W X1bag, and low K repleted, repeat lab in the am. Severe constipation also noted from KUB, BR added. 11/09: Sudden SPO2 drop in the 60s this am. Patient was manually bagged and deep suctioned. Patient is currently stable on the vent, repeat CXR with no significant change. D/w CCM Mucomyst and brochodilator added. Patient mentation is unchanged, continue to hold off on sedative agents. Neurology consulted. 11/10: Acute DVT noted on bilateral lower extremity Doppler ultrasound therefore she was started on Lovenox treatment dose. Failed SBT. Hypernatremia and hyperchloremia noted, free water flush adjusted. 11/11: Patient noted to be febrile with increasing of the cytosis, UA/BC sent and CXR ordered. ID escalated antibiotics to cefepime. CXR demonstrated mucous plug, bedside bronchoscopy was performed and O ETT was changed over bougie from 6 cm to 7.5. Patient was noted to have a pneumothorax postprocedure and chest tube was placed. Family updated by [facility]. Free water flush increased and will add Jaswant supplementation. 11/12: Patient not noted to follow commands, hypernatremia worsen/persist, increasing free water flush, potassium and magnesium and phosphorus repleted. Hemoglobin noted to be 7.1/24.5 from 7.03/12 yesterday. We will continue to trend and monitor. Vent changes per [facility]. Repeat CXR showed no residual pneumo thorax. Consider waterseal tomorrow. Given persistent leukocytosis antibiotics escalated to cefepime per ID. 11/13: Remains on cefepime and vancomycin, vent changes per [facility]. Anemia noted and given 1 unit PRBC. And beta-charleen held in setting of Levophed drip infusing. Remains on fentanyl drip. 11/14: Patient put on CPAP trial by [facility], will continue chest tube until after extubation. Will rest on assist control. CT brain was cancelled by cath lab radiological technologist and reordered. 11/15: Patient removed chest tube overnight. Will obtain cxr. remains on low dose levo. CTH completed with no acute findings. RT to place on CPAP. 11/16: Hypernatremia/hyperchloremia noted on the increase of day water flushes. Anemia noted and ordered PRBC. asked RT to place on cpap but not done yet 11/17: Patient remains on the vent, awake and following commands. H&H stable s/p 2units PRBCs. GI on consult, no intervention at this time. Will continue protonix gtt and serial H&H Q6hrs. Keep patient NPO for now, D5w added for hypernatremia and NPO status. Plan for IVC filter placement today by Vascular. 11/18: Patient is s/p IVC filter. H&H continue to trend down, hbg 6.1 this am, 1 unit of PRBCs ordered. Plan for possible EGD today by GI. Keep patient NPO, continue PPI drip and serial H&H Q6hrs. Electrolytes repleted, repeat lab in the am Assessment and Plan #Septic Shock POA #Bilateral Pneumonia #Bacteremia - Presented with fevers, leukocytosis, and hypotension - COVID PCR negative - 11/04 Bcult with 3/4 group B strep bacteremia - Repeat Bculture NGTD - 11/04 2D Echo with no evidence of vegetation - ID on consult, appreciate recommendations - Continue current IV Abx per ID - F/u on culture data - Trend CBC #Acute Hypoxic Respiratory Failure 2/2 #Right Pneumothorax #Bilateral Pleural Effusion #Bilateral Pneumonia - COVID PCR negative - CXR shows Bilateral opacities, may be volume overloaded - CCM consulted, appreciate recommendations - Intubated on 11/06, ETT exchanged on 11/11 - 11/11 Bronchoscopy--Complicated by spontaneous pneumothorax - 11/11 S/p chest tube placement for right pneumothorax, removed by patient on 11/15 - 11/15 Repeat CXR with resolve Pneumo - This am Vent Setting:CPAP-30%,6,16,350 - Today ABG pending - Continue Nebs treatment - VAP bundle addressed - Aspiration precaution HOB above 30 - ABG and CXR per CCM - Continue SPO2 monitoring for SPO2 goal above 92% #CHF- EF 30-35% with PPM #Hypotension-Resolved #Septic Kristian - Was on 3 pressors initially - BP remains stable - SR on the monitor, HR 70-90s - 11/04 Echo-EF 30-35% - Cardiology on consult - Continue beta-charleen - Not on aspirin due to allergy - Statins on hold due to elevated LFTs - Continue blood pressure monitor per protocol - Maintain MAP above 65 #Acute Blood Loss #Acute GI Bleed #Acute Microcytic Anemia - Report of melena &black tarry stools - s/p a total of 4units of PRBCs since admit - H&H dropped again this am, 1unit of PRBC ordered - GI on consult, no intervention at this time - Plan for possible EGD today - Continue protonix gtt - Keep patient NPO - Serial H&H Q6hrs - Transfuse for H&H less than 7 - Hold AC for now #Hypokalemia #Hypernatremia - K repleted - Unable to give FWF due to NPO status - Continue D5W - Strict intake and output - Continue to monitor and replace electrolytes as needed - Trend BMP,mag, & phosp #Acute DVT in RLE - BLE doppler + Acute DVT in the right external iliac vein, common femoral vein, and superior aspect of femoral vein - Was on Therapeutic Lovenox- held to due GI Bleed - 11/17 s/p IVC filter placement by Vascular Surg #Acute Encephalopathy-improved - Probably r/t sedation vs infectious process - Awake and following commands - CT head noted - Neurology consulted - Resumed Buspar #Transaminitis/Shock Liver - Probably due to bacteria/spetic shock - Continue to Trend LFTs The high probability of a clinically significant, sudden or life threatening deterioration of the [multi] system(s) required my full and direct attention, intervention and personal management. The aggregate critical care time was [60] minutes. This time is in addition to time spent performing reported procedures but includes the following: [x] Data Review and interpretation [x] Patient assessment and monitoring of vital signs [x] Documentation [x] Medication orders and management Disposition Plan: ICU Total Time Spent with Patient (Minutes): 60 History Interval history: Patient seen and examined at the bedside. Patient remains on the vent, Awake and alert, following simple commands. Per RN gamble was reinserted overnight due to X1 bladder scan greater than 600. Patient is still with black tarry stools overnight, Hbg dropped to 6.1 this am, 1unit of PRBCs ordered. Hospitalist Physical - Constitutional Vitals: Temp Pulse Resp BP Pulse Ox 98.6 F 75 25 H 112/45 95 11/18/21 08:00 11/18/21 11:45 11/18/21 11:45 11/18/21 11:45 11/18/21 11:45 General appearance: Present: no acute distress - EENT Eyes: Present: PERRL ENT: hearing intact - Neck Neck: Present: normal ROM - Respiratory Respiratory effort: normal Respiratory: bilateral: rhonchi - Cardiovascular Rhythm: regular Heart Sounds: Present: S1 & S2 - Extremities Extremities: no ischemia, pulses intact, pulses symmetrical Extremity abnormal: edema - Peripheral Assessment Generalized Edema Type: Pitting Edema Degree: 2+ Capillary Refill: < 3 seconds Skin Temperature: Warm Peripheral Pulses: within normal limits - Abdominal General gastrointestinal: soft, non-distended, normal bowel sounds - Integumentary Integumentary: Present: warm, dry - Psychiatric Psychiatric: appropriate mood/affect, cooperative - Neurologic Neurologic: moves all extremities, other (Awake and alert, follows simple commands) - Allied Health Allied health notes reviewed: nursing HEART Score - HEART Score Troponin: Troponin T 0.033 ng/mL (0.00-0.029) H 11/05/21 06:11 Results - Labs CBC & Chem 7: 11/18/21 05:10 11/18/21 07:10 Labs: Laboratory Last Values WBC 12.5 K/mm3 (4.5-11.0) H 11/18/21 05:10 RBC 2.39 M/mm3 (3.65-5.03) L 11/18/21 05:10 Hgb 6.1 gm/dl (10.1-14.3) L 11/18/21 05:10 Hct 20.2 % (30.3-42.9) L 11/18/21 05:10 MCV 85 fl (79-97) 11/18/21 05:10 MCH 25 pg (28-32) L 11/18/21 05:10 MCHC 30 % (30-34) 11/18/21 05:10 RDW 23.2 % (13.2-15.2) H 11/18/21 05:10 Plt Count 150 K/mm3 (140-440) 11/18/21 05:10 Add Manual Diff Complete 11/16/21 15:25 Total Counted 100 11/16/21 15:25 Seg Neutrophils % Automotive [employer] Drafter 11/06/21 15:50 Seg Neuts % (Manual) 87.0 % (40.0-70.0) H 11/16/21 15:25 Band Neutrophils % 0 % 11/16/21 15:25 Lymphocytes % (Manual) 8.0 % (13.4-35.0) L 11/16/21 15:25 Reactive Lymphs % (Man) 0 % 11/16/21 15:25 Monocytes % (Manual) 5.0 % (0.0-7.3) 11/16/21 15:25 Eosinophils % (Manual) 0 % (0.0-4.3) 11/16/21 15:25 Basophils % (Manual) 0 % (0.0-1.8) 11/16/21 15:25 Metamyelocytes % 0 % 11/16/21 15:25 Myelocytes % 0 % 11/16/21 15:25 Promyelocytes % 0 % 11/16/21 15:25 Blast Cells % 0 % 11/16/21 15:25 Nucleated RBC % Not Reportable 11/16/21 15:25 Seg Neutrophils # Man 15.0 K/mm3 (1.8-7.7) H 11/16/21 15:25 Band Neutrophils # 0.0 K/mm3 11/16/21 15:25 Lymphocytes # (Manual) 1.4 K/mm3 (1.2-5.4) 11/16/21 15:25 Abs React Lymphs (Man) 0.0 K/mm3 11/16/21 15:25 Monocytes # (Manual) 0.9 K/mm3 (0.0-0.8) H 11/16/21 15:25 Eosinophils # (Manual) 0.0 K/mm3 (0.0-0.4) 11/16/21 15:25 Basophils # (Manual) 0.0 K/mm3 (0.0-0.1) 11/16/21 15:25 Metamyelocytes # 0.0 K/mm3 11/16/21 15:25 Myelocytes # 0.0 K/mm3 11/16/21 15:25 Promyelocytes # 0.0 K/mm3 11/16/21 15:25 Blast Cells # 0.0 K/mm3 11/16/21 15:25 WBC Morphology Not Reportable 11/16/21 15:25 Hypersegmented Neuts Not Reportable 11/16/21 15:25 Hyposegmented Neuts Not Reportable 11/16/21 15:25 Hypogranular Neuts Not Reportable 11/16/21 15:25 Smudge Cells Not Reportable 11/16/21 15:25 Toxic Granulation Not Reportable 11/16/21 15:25 Toxic Vacuolation Not Reportable 11/16/21 15:25 Dohle Bodies Not Reportable 11/16/21 15:25 Pelger-Huet Anomaly Not Reportable 11/16/21 15:25 Irina Rods Not Reportable 11/16/21 15:25 Platelet Estimate Consistent w auto 11/16/21 15:25 Clumped Platelets Rare 11/16/21 15:25 Plt Clumps, EDTA Not Reportable 11/16/21 15:25 Large Platelets Not Reportable 11/16/21 15:25 Giant Platelets Not Reportable 11/16/21 15:25 Platelet Satelliting Not Reportable 11/16/21 15:25 Plt Morphology Comment Not Reportable 11/16/21 15:25 RBC Morphology Not Reportable 11/16/21 15:25 Dimorphic RBCs Not Reportable 11/16/21 15:25 Polychromasia Not Reportable 11/16/21 15:25 Hypochromasia 2+ 11/16/21 15:25 Poikilocytosis Not Reportable 11/16/21 15:25 Anisocytosis 2+ 11/16/21 15:25 Microcytosis Not Reportable 11/16/21 15:25 Macrocytosis Not Reportable 11/16/21 15:25 Spherocytes Not Reportable 11/16/21 15:25 Pappenheimer Bodies Not Reportable 11/16/21 15:25 Sickle Cells Not Reportable 11/16/21 15:25 Target Cells 2+ 11/16/21 15:25 Tear Drop Cells Not Reportable 11/16/21 15:25 Ovalocytes Not Reportable 11/16/21 15:25 Helmet Cells Not Reportable 11/16/21 15:25 [place] Bodies Not Reportable 11/16/21 15:25 [place] Rings Not Reportable 11/16/21 15:25 [place] Cells Not Reportable 11/16/21 15:25 Bite Cells Not Reportable 11/16/21 15:25 Crenated Cell Not Reportable 11/16/21 15:25 Elliptocytes Not Reportable 11/16/21 15:25 Acanthocytes (Spur) Not Reportable 11/16/21 15:25 Rouleaux Not Reportable 11/16/21 15:25 Hemoglobin C Crystals Not Reportable 11/16/21 15:25 Schistocytes Not Reportable 11/16/21 15:25 Malaria parasites Not Reportable 11/16/21 15:25 [place]frey Bodies Not Reportable 11/16/21 15:25 Hem Pathologist Commnt No 11/16/21 15:25 PT 18.6 Sec. (12.2-14.9) H 11/03/21 22:32 INR 1.40 (0.87-1.13) H 11/03/21 22:32 APTT 28.9 Sec. (24.2-36.6) 11/03/21 22:32 D-Dimer 2655.00 ng/mlDDU (0-234) H 11/11/21 04:28 ABG pH 7.407 pH Units (7.350-7.450) 11/14/21 16:14 ABG pCO2 45.6 mm Hg 11/14/21 16:14 ABG pO2 80.6 mm Hg (80.0-90.0) 11/14/21 16:14 ABG HCO3 28.0 mmol/L (20.0-26.0) H 11/14/21 16:14 ABG O2 Saturation 97.0 % (95.0-99.0) 11/14/21 16:14 ABG O2 Content 7.8 (0.0-44) 11/14/21 16:14 ABG Base Excess 3.1 mmol/L (-2.0-3.0) H 11/14/21 16:14 ABG Hemoglobin 5.8 gm/dl (12.0-16.0) L 11/14/21 16:14 ABG Carboxyhemoglobin 2.0 % (0.0-5.0) 11/14/21 16:14 ABG Methemoglobin 0.3 % (0.0-1.5) 11/14/21 16:14 Oxyhemoglobin 94.8 % (95.0-99.0) L 11/14/21 16:14 FiO2 35 % 11/14/21 16:14 Sodium 148 mmol/L (137-145) H D 11/18/21 07:10 Potassium 3.1 mmol/L (3.6-5.0) L 11/18/21 07:10 Chloride 111.9 mmol/L (98-107) H 11/18/21 07:10 Carbon Dioxide 27 mmol/L (22-30) 11/18/21 07:10 Anion Gap 12 mmol/L 11/18/21 07:10 BUN 63 mg/dL (7-17) H 11/18/21 07:10 Creatinine 1.0 mg/dL (0.6-1.2) 11/18/21 07:10 Estimated GFR 53 ml/min 11/18/21 07:10 BUN/Creatinine Ratio 63 % 11/18/21 07:10 Glucose 141 mg/dL (65-100) H 11/18/21 07:10 POC Glucose 119 mg/dL (70-105) H 11/18/21 11:57 Lactic Acid 3.70 mmol/L (0.7-2.0) H* 11/03/21 22:32 Calcium 8.1 mg/dL (8.4-10.2) L D 11/18/21 07:10 Phosphorus 2.20 mg/dL (2.5-4.5) L D 11/18/21 05:10 Magnesium 1.50 mg/dL (1.7-2.3) L 11/18/21 05:10 Ferritin 52.6 ng/mL (10.0-200.0) 11/05/21 06:11 Total Bilirubin 0.50 mg/dL (0.1-1.2) 11/17/21 05:56 Direct Bilirubin < 0.2 mg/dL (0-0.2) 11/11/21 04:28 Indirect Bilirubin 0.1 mg/dL 11/11/21 04:28 AST 36 units/L (5-40) 11/17/21 05:56 ALT 47 units/L (7-56) 11/17/21 05:56 Alkaline Phosphatase 107 units/L (35-129) 11/17/21 05:56 Ammonia 42.0 umol/L (25-60) 11/10/21 14:08 Lactate Dehydrogenase 187 units/L (91-180) H 11/05/21 06:11 Troponin T 0.033 ng/mL (0.00-0.029) H 11/05/21 06:11 C-Reactive Protein 22.20 mg/dL (0.00-1.30) H 11/05/21 06:11 NT-Pro-B Natriuret Pep 7895 pg/mL (0-900) H 11/03/21 22:32 Total Protein 5.1 g/dL (6.3-8.2) L 11/17/21 05:56 Albumin 2.2 g/dL (3.9-5) L 11/17/21 05:56 Albumin/Globulin Ratio 0.8 % 11/17/21 05:56 Triglycerides 66 mg/dL (2-149) 11/03/21 22:32 Cholesterol 80 mg/dL (50-199) 11/03/21 22:32 LDL Cholesterol Direct 34 mg/dL (50-130) L 11/03/21 22:32 HDL Cholesterol 42 mg/dL (40-59) 11/03/21 22:32 Cholesterol/HDL Ratio 1.90 % 11/03/21 22:32 Vitamin B12 1823 pg/mL (211-911) H 11/10/21 14:08 TSH 1.510 mlU/mL (0.270-4.200) 11/10/21 14:08 Urine Color Yellow (Yellow) 11/11/21 09:00 Urine Turbidity Slightly-cloudy (Clear) 11/11/21 09:00 Urine pH 5.0 (5.0-7.0) 11/11/21 09:00 Ur Specific [place] 1.009 (1.003-1.030) 11/11/21 09:00 Urine Protein <15 mg/dl mg/dL (Negative) 11/11/21 09:00 Urine Glucose (UA) Neg mg/dL (Negative) 11/11/21 09:00 Urine Ketones Neg mg/dL (Negative) 11/11/21 09:00 Urine Blood Mod (Negative) 11/11/21 09:00 Urine Nitrite Neg (Negative) 11/11/21 09:00 Urine Bilirubin Neg (Negative) 11/11/21 09:00 Urine Urobilinogen < 2.0 mg/dL (<2.0) 11/11/21 09:00 Ur Leukocyte Esterase Neg (Negative) 11/11/21 09:00 Urine WBC (Auto) < 1.0 /HPF (0.0-6.0) 11/11/21 09:00 Urine RBC (Auto) < 1.0 /HPF (0.0-6.0) 11/11/21 09:00 Coronavirus (PCR) Negative (Negative) 11/10/21 08:30 Blood Type O POSITIVE 11/18/21 10:45 Antibody Screen Negative 11/18/21 10:45 Crossmatch See Detail 11/18/21 10:45 Gamble/IV: Voiding Method Indwelling Catheter Active Medications - Current Medications Current Medications: Generic Name Dose Route Start Last Admin Trade Name Freq PRN Reason Stop Dose Admin Acetaminophen 650 mg 11/04/21 02:03 11/16/21 15:43 Acetaminophen 325 Mg Tab PO 650 mg Q6H PRN Administration Pain MILD(1-3)/Fever >100.5/RODRIGUEZ Hydrocodone Bitart/Acetaminophen 1 each 11/15/21 20:00 11/18/21 09:58 Hydrocodone/Acetaminophen 10-325mg Tab PO 11/20/21 19:59 Not Given TID YOSSI Lipase/Protease/Amylase 1 each 11/08/21 11:09 Lipase 10,500/Protease 25,000/Amylase 43,750 (Units) Dr Lema FEEDTUBE PRN PRN For Clogged Feeding Tube Buspirone HCl 7.5 mg 11/17/21 22:00 11/18/21 09:58 Buspirone 5 Mg Tab PO Not Given BID YOSSI Dextrose 0 ml 11/10/21 10:52 Dextrose 10% *Hypoglycemia IV PRN PRN Hypoglycemia Docusate Sodium 100 mg 11/08/21 12:00 11/18/21 09:58 Docusate Sodium 100 Mg/10 Ml Oral Liqd PO Not Given BID YOSSI Fentanyl 25 mcg 11/17/21 12:07 11/18/21 09:18 Fentanyl 100 Mcg/2 Ml Inj IV 11/19/21 12:06 25 mcg Q2H PRN Administration Pain , Severe (7-10) Fentanyl 1 applic 11/17/21 13:00 11/17/21 13:00 Fentanyl 25 Mcg/Hr Patch 72hr TD 1 applic Q3D YOSSI Administration Hydrophilic Ointment 1 applic 11/06/21 04:02 Lip Therapy Vaseline TP Q2HR PRN Dry Lips NORepinephrine/NS 8 MG-250 ML 8 mg in 250 mls @ 3.75 mls/hr 11/05/21 09:00 11/18/21 03:26 Norepinephrine/Ns 8 Mg-250 Ml (Double Conc) IV 0 mcg/min TITRATE YOSSI 0 mls/hr Titration Protocol 2 MCG/MIN Vasopressin 20 unit/ Sodium 101 mls @ 9.09 mls/hr 11/05/21 23:00 11/06/21 01:00 Chloride IV 0.03 units/min TITR YOSSI 9.09 mls/hr Administration Protocol 0.03 UNITS/MIN Cefepime HCl 1 gm in 100 mls @ 200 mls/hr 11/12/21 16:00 11/18/21 09:16 Cefepime/Ns 1 Gm/100 Ml IV 200 mls/hr Q8H YOSSI Administration Protocol Pantoprazole Sodium 80 mg/ 100 mls @ 10 mls/hr 11/16/21 17:00 11/18/21 04:58 Sodium Chloride IV 8 mg/hr DIRECT YOSSI 10 mls/hr Administration 8 MG/HR Fentanyl Citrate 2,000 mcg in 100 mls @ 3.12 mls/hr 11/17/21 13:00 11/17/21 19:05 Fentanyl Drip Premix IV 0 mcg/kg/hr TITR YOSSI 0 mls/hr Titration Protocol 1 MCG/KG/HR Dextrose 1,000 mls @ 100 mls/hr 11/17/21 16:00 11/18/21 03:25 D5w IV 11/20/21 01:59 100 mls/hr DIRECT YOSSI Administration Magnesium Sulfate 4 gm in 100 mls @ 25 mls/hr 11/18/21 10:00 11/18/21 09:16 Magnesium Sulfate 4gm/100ml IV 11/18/21 13:59 25 mls/hr ONCE ONE Administration Potassium Phosphate 45 mmol/ 515 mls @ 85 mls/hr 11/18/21 10:00 11/18/21 09:58 Sodium Chloride IV 11/18/21 16:03 85 mls/hr ONCE ONE Administration Insulin Human Lispro 0 unit 11/06/21 12:00 11/18/21 05:28 Insulin Lispro 100 Unit/Ml SUB-Q Not Given Q6HR [facility] Protocol Levothyroxine Sodium 125 mcg 11/05/21 07:00 11/18/21 05:17 Levothyroxine 125 Mcg Tab PO Not Given DAILY@0600 [facility] Magnesium Hydroxide 30 ml 11/04/21 02:03 Magnesium Hydroxide (Mom) Oral Liqd Udc PO Q4H PRN Constipation Multi-Ingred Cream/Lotion/Oil/Oint 1 applic 11/06/21 04:02 Mineral Oil/Petrolatum, White Ophth Oint 3.5 Gm OU Q4HR PRN Dry Eye(s) Ondansetron HCl 4 mg 11/04/21 02:03 11/05/21 15:48 Ondansetron 4 Mg/2 Ml Inj IV 4 mg Q8H PRN Administration Nausea And Vomiting Polyethylene Glycol 17 gm 11/08/21 12:00 11/18/21 09:58 Polyethylene Glycol 3350 17 Gm Powder PO Not Given QDAY [facility] Senna 17.6 mg 11/08/21 22:00 11/18/21 09:59 Sennosides Oral Liqd 8.8 Mg/5 Ml Oral Liqd PO Not Given Q12HR YOSSI Simple Syrup 15 ml 11/08/21 11:09 Simple Syrup 15 Ml FEEDTUBE PRN PRN Hypoglycemia Simple Syrup 30 ml 11/08/21 11:09 Simple Syrup 15 Ml FEEDTUBE PRN PRN Hypoglycemia Sodium Bicarbonate 325 mg 11/08/21 11:09 Sodium Bicarbonate 325 Mg Tab FEEDTUBE PRN PRN For Clogged Feeding Tube Sodium Chloride 10 ml 11/04/21 10:00 11/18/21 09:59 Sodium Chloride 0.9% 10 Ml Flush Syringe IV 10 ml BID YOSSI Administration Sodium Chloride 10 ml 11/04/21 02:03 Sodium Chloride 0.9% 10 Ml Flush Syringe IV PRN PRN LINE FLUSH Sodium Chloride 10 ml 11/10/21 09:57 11/17/21 20:47 Sodium Chloride 0.9% 50 Ml Ivpb IV 10 ml PRN PRN Administration FLUSH Nutrition/Malnutrition Assess - Dietary Evaluation Nutrition/Malnutrition Findings: Nutrition Notes Start: 11/04/21 17:16 Freq: Status: Active Protocol: Document 11/17/21 15:18 NHALL (Rec: 11/17/21 15:27 ORALL [id number]) Nutrition Notes Initial or Follow up Reassessment Current Diagnosis Diabetes,Hypertension, Respiratory Failure Other Pertinent Diagnosis Septic shock, Bilat pneu, Anemia, GIB Current Diet NPO Labs/Tests Na 151 BUN 85 Pertinent Medications Levophed gtt, Vasopressin gtt, Protonix gtt, Fentanyl Height 5 ft Weight 62.4 kg [place] Body Weight (kg) 45.45 BMI 26.9 Weight change and time frame Wt change noted Weight Status Appropriate Subjective/Other Information Per RN, TF turned off sec to scheduled procedure today (IVC filter placement). Pt remains on vent support. #1 Nutrition Diagnosis Inadequate oral intake Diagnosis Progress(for reassessment Continues documentation) Is patient on ventilator? Yes Is Patient Ambulatory and/or Out of Bed No REE-([facility]-confined to bed) 3047.824 Calculation Used for Recommendations [facility] Additional Notes Pro needs 1.2-2g/k-125g/ day Fluid needs 1ml/kcal Nutrition Intervention Nutrition Support: Resume TF when medically feasible. Pt to either receive Vital AF 1.2 at 40ml/ hr or Glucerna 1.2 at 40ml/hr. Goal #1 Resume TF to meet nutrient needs Follow-Up By: 11/19/21 Additional Comments F/U: TF restart/tolerance, vent status, Na lab/water flush <LEAH ALFONSO - Last Filed: 11/18/21 18:23> Assessment and Plan Assessment and plan: I saw and evaluated the patient. I agree with the findings and the plan of care as documented in the Nurse Practitioner's~note, with the following corrections and additions. Hospitalist Physical - Constitutional Vitals: Temp Pulse Resp BP Pulse Ox 97.7 F 69 18 105/47 92 11/18/21 16:00 11/18/21 17:16 11/18/21 17:16 11/18/21 17:16 11/18/21 17:16 HEART Score - HEART Score Troponin: Troponin T 0.033 ng/mL (0.00-0.029) H 11/05/21 06:11 Results - Labs CBC & Chem 7: 11/18/21 05:10 11/18/21 07:10 Labs: Laboratory Last Values WBC 12.5 K/mm3 (4.5-11.0) H 11/18/21 05:10 RBC 2.39 M/mm3 (3.65-5.03) L 11/18/21 05:10 Hgb 6.1 gm/dl (10.1-14.3) L 11/18/21 05:10 Hct 20.2 % (30.3-42.9) L 11/18/21 05:10 MCV 85 fl (79-97) 11/18/21 05:10 MCH 25 pg (28-32) L 11/18/21 05:10 MCHC 30 % (30-34) 11/18/21 05:10 RDW 23.2 % (13.2-15.2) H 11/18/21 05:10 Plt Count 150 K/mm3 (140-440) 11/18/21 05:10 Add Manual Diff Complete 11/16/21 15:25 Total Counted 100 11/16/21 15:25 Seg Neutrophils % [employer] 11/06/21 15:50 Seg Neuts % (Manual) 87.0 % (40.0-70.0) H 11/16/21 15:25 Band Neutrophils % 0 % 11/16/21 15:25 Lymphocytes % (Manual) 8.0 % (13.4-35.0) L 11/16/21 15:25 Reactive Lymphs % (Man) 0 % 11/16/21 15:25 Monocytes % (Manual) 5.0 % (0.0-7.3) 11/16/21 15:25 Eosinophils % (Manual) 0 % (0.0-4.3) 11/16/21 15:25 Basophils % (Manual) 0 % (0.0-1.8) 11/16/21 15:25 Metamyelocytes % 0 % 11/16/21 15:25 Myelocytes % 0 % 11/16/21 15:25 Promyelocytes % 0 % 11/16/21 15:25 Blast Cells % 0 % 11/16/21 15:25 Nucleated RBC % Not Reportable 11/16/21 15:25 Seg Neutrophils # Man 15.0 K/mm3 (1.8-7.7) H 11/16/21 15:25 Band Neutrophils # 0.0 K/mm3 11/16/21 15:25 Lymphocytes # (Manual) 1.4 K/mm3 (1.2-5.4) 11/16/21 15:25 Abs React Lymphs (Man) 0.0 K/mm3 11/16/21 15:25 Monocytes # (Manual) 0.9 K/mm3 (0.0-0.8) H 11/16/21 15:25 Eosinophils # (Manual) 0.0 K/mm3 (0.0-0.4) 11/16/21 15:25 Basophils # (Manual) 0.0 K/mm3 (0.0-0.1) 11/16/21 15:25 Metamyelocytes # 0.0 K/mm3 11/16/21 15:25 Myelocytes # 0.0 K/mm3 11/16/21 15:25 Promyelocytes # 0.0 K/mm3 11/16/21 15:25 Blast Cells # 0.0 K/mm3 11/16/21 15:25 WBC Morphology Not Reportable 11/16/21 15:25 Hypersegmented Neuts Not Reportable 11/16/21 15:25 Hyposegmented Neuts Not Reportable 11/16/21 15:25 Hypogranular Neuts Not Reportable 11/16/21 15:25 Smudge Cells Not Reportable 11/16/21 15:25 Toxic Granulation Not Reportable 11/16/21 15:25 Toxic Vacuolation Not Reportable 11/16/21 15:25 Dohle Bodies Not Reportable 11/16/21 15:25 Pelger-Huet Anomaly Not Reportable 11/16/21 15:25 Irina Rods Not Reportable 11/16/21 15:25 Platelet Estimate Consistent w auto 11/16/21 15:25 Clumped Platelets Rare 11/16/21 15:25 Plt Clumps, EDTA Not Reportable 11/16/21 15:25 Large Platelets Not Reportable 11/16/21 15:25 Giant Platelets Not Reportable 11/16/21 15:25 Platelet Satelliting Not Reportable 11/16/21 15:25 Plt Morphology Comment Not Reportable 11/16/21 15:25 RBC Morphology Not Reportable 11/16/21 15:25 Dimorphic RBCs Not Reportable 11/16/21 15:25 Polychromasia Not Reportable 11/16/21 15:25 Hypochromasia 2+ 11/16/21 15:25 Poikilocytosis Not Reportable 11/16/21 15:25 Anisocytosis 2+ 11/16/21 15:25 Microcytosis Not Reportable 11/16/21 15:25 Macrocytosis Not Reportable 11/16/21 15:25 Spherocytes Not Reportable 11/16/21 15:25 Pappenheimer Bodies Not Reportable 11/16/21 15:25 Sickle Cells Not Reportable 11/16/21 15:25 Target Cells 2+ 11/16/21 15:25 Tear Drop Cells Not Reportable 11/16/21 15:25 Ovalocytes Not Reportable 11/16/21 15:25 Helmet Cells Not Reportable 11/16/21 15:25 [place] Bodies Not Reportable 11/16/21 15:25 [place] Rings Not Reportable 11/16/21 15:25 [place] Cells Not Reportable 11/16/21 15:25 Bite Cells Not Reportable 11/16/21 15:25 Crenated Cell Not Reportable 11/16/21 15:25 Elliptocytes Not Reportable 11/16/21 15:25 Acanthocytes (Spur) Not Reportable 11/16/21 15:25 Rouleaux Not Reportable 11/16/21 15:25 Hemoglobin C Crystals Not Reportable 11/16/21 15:25 Schistocytes Not Reportable 11/16/21 15:25 Malaria parasites Not Reportable 11/16/21 15:25 [place] Bodies Not Reportable 11/16/21 15:25 Hem Pathologist Commnt No 11/16/21 15:25 PT 18.6 Sec. (12.2-14.9) H 11/03/21 22:32 INR 1.40 (0.87-1.13) H 11/03/21 22:32 APTT 28.9 Sec. (24.2-36.6) 11/03/21 22:32 D-Dimer 2655.00 ng/mlDDU (0-234) H 11/11/21 04:28 ABG pH 7.407 pH Units (7.350-7.450) 11/14/21 16:14 ABG pCO2 45.6 mm Hg 11/14/21 16:14 ABG pO2 80.6 mm Hg (80.0-90.0) 11/14/21 16:14 ABG HCO3 28.0 mmol/L (20.0-26.0) H 11/14/21 16:14 ABG O2 Saturation 97.0 % (95.0-99.0) 11/14/21 16:14 ABG O2 Content 7.8 (0.0-44) 11/14/21 16:14 ABG Base Excess 3.1 mmol/L (-2.0-3.0) H 11/14/21 16:14 ABG Hemoglobin 5.8 gm/dl (12.0-16.0) L 11/14/21 16:14 ABG Carboxyhemoglobin 2.0 % (0.0-5.0) 11/14/21 16:14 ABG Methemoglobin 0.3 % (0.0-1.5) 11/14/21 16:14 Oxyhemoglobin 94.8 % (95.0-99.0) L 11/14/21 16:14 FiO2 35 % 11/14/21 16:14 Sodium 148 mmol/L (137-145) H D 11/18/21 07:10 Potassium 3.1 mmol/L (3.6-5.0) L 11/18/21 07:10 Chloride 111.9 mmol/L (98-107) H 11/18/21 07:10 Carbon Dioxide 27 mmol/L (22-30) 11/18/21 07:10 Anion Gap 12 mmol/L 11/18/21 07:10 BUN 63 mg/dL (7-17) H 11/18/21 07:10 Creatinine 1.0 mg/dL (0.6-1.2) 11/18/21 07:10 Estimated GFR 53 ml/min 11/18/21 07:10 BUN/Creatinine Ratio 63 % 11/18/21 07:10 Glucose 141 mg/dL (65-100) H 11/18/21 07:10 POC Glucose 98 mg/dL (70-105) 11/18/21 17:51 Lactic Acid 3.70 mmol/L (0.7-2.0) H* 11/03/21 22:32 Calcium 8.1 mg/dL (8.4-10.2) L D 11/18/21 07:10 Phosphorus 2.20 mg/dL (2.5-4.5) L D 11/18/21 05:10 Magnesium 1.50 mg/dL (1.7-2.3) L 11/18/21 05:10 Ferritin 52.6 ng/mL (10.0-200.0) 11/05/21 06:11 Total Bilirubin 0.50 mg/dL (0.1-1.2) 11/17/21 05:56 Direct Bilirubin < 0.2 mg/dL (0-0.2) 11/11/21 04:28 Indirect Bilirubin 0.1 mg/dL 11/11/21 04:28 AST 36 units/L (5-40) 11/17/21 05:56 ALT 47 units/L (7-56) 11/17/21 05:56 Alkaline Phosphatase 107 units/L (35-129) 11/17/21 05:56 Ammonia 42.0 umol/L (25-60) 11/10/21 14:08 Lactate Dehydrogenase 187 units/L (91-180) H 11/05/21 06:11 Troponin T 0.033 ng/mL (0.00-0.029) H 11/05/21 06:11 C-Reactive Protein 22.20 mg/dL (0.00-1.30) H 11/05/21 06:11 NT-Pro-B Natriuret Pep 7895 pg/mL (0-900) H 11/03/21 22:32 Total Protein 5.1 g/dL (6.3-8.2) L 11/17/21 05:56 Albumin 2.2 g/dL (3.9-5) L 11/17/21 05:56 Albumin/Globulin Ratio 0.8 % 11/17/21 05:56 Triglycerides 66 mg/dL (2-149) 11/03/21 22:32 Cholesterol 80 mg/dL (50-199) 11/03/21 22:32 LDL Cholesterol Direct 34 mg/dL (50-130) L 11/03/21 22:32 HDL Cholesterol 42 mg/dL (40-59) 11/03/21 22:32 Cholesterol/HDL Ratio 1.90 % 11/03/21 22:32 Vitamin B12 1823 pg/mL (211-911) H 11/10/21 14:08 TSH 1.510 mlU/mL (0.270-4.200) 11/10/21 14:08 Urine Color Yellow (Yellow) 11/11/21 09:00 Urine Turbidity Slightly-cloudy (Clear) 11/11/21 09:00 Urine pH 5.0 (5.0-7.0) 11/11/21 09:00 Ur Specific [place] 1.009 (1.003-1.030) 11/11/21 09:00 Urine Protein <15 mg/dl mg/dL (Negative) 11/11/21 09:00 Urine Glucose (UA) Neg mg/dL (Negative) 11/11/21 09:00 Urine Ketones Neg mg/dL (Negative) 11/11/21 09:00 Urine Blood Mod (Negative) 11/11/21 09:00 Urine Nitrite Neg (Negative) 11/11/21 09:00 Urine Bilirubin Neg (Negative) 11/11/21 09:00 Urine Urobilinogen < 2.0 mg/dL (<2.0) 11/11/21 09:00 Ur Leukocyte Esterase Neg (Negative) 11/11/21 09:00 Urine WBC (Auto) < 1.0 /HPF (0.0-6.0) 11/11/21 09:00 Urine RBC (Auto) < 1.0 /HPF (0.0-6.0) 11/11/21 09:00 Coronavirus (PCR) Negative (Negative) 11/10/21 08:30 Blood Type O POSITIVE 11/18/21 10:45 Antibody Screen Negative 11/18/21 10:45 Crossmatch See Detail 11/18/21 10:45 Gamble/IV: Voiding Method Indwelling Catheter Active Medications - Current Medications Current Medications: Generic Name Dose Route Start Last Admin Trade Name Freq PRN Reason Stop Dose Admin Acetaminophen 650 mg 11/04/21 02:03 11/16/21 15:43 Acetaminophen 325 Mg Tab PO 650 mg Q6H PRN Administration Pain MILD(1-3)/Fever >100.5/RODRIGUEZ Hydrocodone Bitart/Acetaminophen 1 each 11/15/21 20:00 11/18/21 09:58 Hydrocodone/Acetaminophen 10-325mg Tab PO 11/20/21 19:59 Not Given TID YOSSI Lipase/Protease/Amylase 1 each 11/08/21 11:09 Lipase 10,500/Protease 25,000/Amylase 43,750 (Units) Dr Lema FEEDTUBE PRN PRN For Clogged Feeding Tube Buspirone HCl 7.5 mg 11/17/21 22:00 11/18/21 09:58 Buspirone 5 Mg Tab PO Not Given BID YOSSI Dextrose 0 ml 11/10/21 10:52 Dextrose 10% *Hypoglycemia IV PRN PRN Hypoglycemia Docusate Sodium 100 mg 11/08/21 12:00 11/18/21 09:58 Docusate Sodium 100 Mg/10 Ml Oral Liqd PO Not Given BID YOSSI Fentanyl 25 mcg 11/17/21 12:07 11/18/21 09:18 Fentanyl 100 Mcg/2 Ml Inj IV 11/19/21 12:06 25 mcg Q2H PRN Administration Pain , Severe (7-10) Fentanyl 1 applic 11/17/21 13:00 11/17/21 13:00 Fentanyl 25 Mcg/Hr Patch 72hr TD 1 applic Q3D YOSSI Administration Hydrophilic Ointment 1 applic 11/06/21 04:02 Lip Therapy Vaseline TP Q2HR PRN Dry Lips NORepinephrine/NS 8 MG-250 ML 8 mg in 250 mls @ 3.75 mls/hr 11/05/21 09:00 11/18/21 03:26 Norepinephrine/Ns 8 Mg-250 Ml (Double Conc) IV 0 mcg/min TITRATE YOSSI 0 mls/hr Titration Protocol 2 MCG/MIN Vasopressin 20 unit/ Sodium 101 mls @ 9.09 mls/hr 11/05/21 23:00 11/06/21 01:00 Chloride IV 0.03 units/min TITR YOSSI 9.09 mls/hr Administration Protocol 0.03 UNITS/MIN Cefepime HCl 1 gm in 100 mls @ 200 mls/hr 11/12/21 16:00 11/18/21 17:00 Cefepime/Ns 1 Gm/100 Ml IV 200 mls/hr Q8H YOSSI Administration Protocol Pantoprazole Sodium 80 mg/ 100 mls @ 10 mls/hr 11/16/21 17:00 11/18/21 17:00 Sodium Chloride IV 8 mg/hr DIRECT YOSSI 10 mls/hr Administration 8 MG/HR Fentanyl Citrate 2,000 mcg in 100 mls @ 3.12 mls/hr 11/17/21 13:00 11/17/21 19:05 Fentanyl Drip Premix IV 0 mcg/kg/hr TITR YOSSI 0 mls/hr Titration Protocol 1 MCG/KG/HR Dextrose 1,000 mls @ 75 mls/hr 11/17/21 16:00 11/18/21 14:08 D5w IV 11/21/21 05:19 100 mls/hr DIRECT YOSSI Administration Insulin Human Lispro 0 unit 11/06/21 12:00 11/18/21 14:09 Insulin Lispro 100 Unit/Ml SUB-Q Not Given Q6HR [facility] Protocol Levothyroxine Sodium 125 mcg 11/05/21 07:00 11/18/21 05:17 Levothyroxine 125 Mcg Tab PO Not Given DAILY@0600 [facility] Magnesium Hydroxide 30 ml 11/04/21 02:03 Magnesium Hydroxide (Mom) Oral Liqd Udc PO Q4H PRN Constipation Multi-Ingred Cream/Lotion/Oil/Oint 1 applic 11/06/21 04:02 Mineral Oil/Petrolatum, White Ophth Oint 3.5 Gm OU Q4HR PRN Dry Eye(s) Ondansetron HCl 4 mg 11/04/21 02:03 11/05/21 15:48 Ondansetron 4 Mg/2 Ml Inj IV 4 mg Q8H PRN Administration Nausea And Vomiting Polyethylene Glycol 17 gm 11/08/21 12:00 11/18/21 09:58 Polyethylene Glycol 3350 17 Gm Powder PO Not Given QDAY [facility] Pravastatin Sodium 20 mg 11/18/21 22:00 Pravastatin 20 Mg Tab PO QHS [facility] Senna 17.6 mg 11/08/21 22:00 11/18/21 09:59 Sennosides Oral Liqd 8.8 Mg/5 Ml Oral Liqd PO Not Given Q12HR YOSSI Simple Syrup 15 ml 11/08/21 11:09 Simple Syrup 15 Ml FEEDTUBE PRN PRN Hypoglycemia Simple Syrup 30 ml 11/08/21 11:09 Simple Syrup 15 Ml FEEDTUBE PRN PRN Hypoglycemia Sodium Bicarbonate 325 mg 11/08/21 11:09 Sodium Bicarbonate 325 Mg Tab FEEDTUBE PRN PRN For Clogged Feeding Tube Sodium Chloride 10 ml 11/04/21 10:00 11/18/21 09:59 Sodium Chloride 0.9% 10 Ml Flush Syringe IV 10 ml BID YOSSI Administration Sodium Chloride 10 ml 11/04/21 02:03 Sodium Chloride 0.9% 10 Ml Flush Syringe IV PRN PRN LINE FLUSH Sodium Chloride 10 ml 11/10/21 09:57 11/17/21 20:47 Sodium Chloride 0.9% 50 Ml Ivpb IV 10 ml PRN PRN Administration FLUSH Sucralfate 1 gm 11/18/21 16:30 Sucralfate 1 Gm/10 Ml Oral Liqd PO [facility] Nutrition/Malnutrition Assess - Dietary Evaluation Nutrition/Malnutrition Findings: Nutrition Notes Start: 11/04/21 17:16 Freq: Status: Active Protocol: Document 11/17/21 15:18 [facility] (Rec: 11/17/21 15:27 [facility] [id number]) Nutrition Notes Initial or Follow up Reassessment Current Diagnosis Diabetes,Hypertension, Respiratory Failure Other Pertinent Diagnosis Septic shock, Bilat pneu, Anemia, GIB Current Diet NPO Labs/Tests Na 151 BUN 85 Pertinent Medications Levophed gtt, Vasopressin gtt, Protonix gtt, Fentanyl Height 5 ft Weight 62.4 kg [place] Body Weight (kg) 45.45 BMI 26.9 Weight change and time frame Wt change noted Weight Status Appropriate Subjective/Other Information Per RN, TF turned off sec to scheduled procedure today (IVC filter placement). Pt remains on vent support. #1 Nutrition Diagnosis Inadequate oral intake Diagnosis Progress(for reassessment Continues documentation) Is patient on ventilator? Yes Is Patient Ambulatory and/or Out of Bed No REE-([facility]-confined to bed) [phone] Calculation Used for Recommendations [facility] Additional Notes Pro needs 1.2-2g/k-125g/ day Fluid needs 1ml/kcal Nutrition Intervention Nutrition Support: Resume TF when medically feasible. Pt to either receive Vital AF 1.2 at 40ml/ hr or Glucerna 1.2 at 40ml/hr. Goal #1 Resume TF to meet nutrient needs Follow-Up By: 11/19/21 Additional Comments F/U: TF restart/tolerance, vent status, Na lab/water flush
--- NOTE | 2021-11-18 12:34 | Progress Note ---
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 She was found to be in respiratory distress, initially treated with NRB. Pt was also noted to be septic with radiographic evidence of bilateral PNA Acute Respiratory Failure Septic Shock GBS Bacteremia Bilateral Pneumonia Bilateral Pleural Effusions Right pneumothorax and s/p right chest tube Acute HFrEF DVT Cardiomyopathy (EF reduced to 30-35% on echo this admission) NSVT Tn Elevation (?Type 2 TN in the setting of hypoxia & shock) Anemia Hypokalemia CAD s/p PCI (2004) CHB s/p PPM ([facility]) Hypothyroidism H/o HTN H/o DM Arthritis Echo reviewed - EF 30-35%, mild diastolic dysfunction, RV mildly dilated, moderate MR, moderate TR, moderate pulmonary HTN w/RVSP 49mmHg, no pericardial effusion, large left pleural effusion. Plan: Will continue to hold BB for soft BB Not on ASA d/t allergy. Pat[place] S/p IVC filter Patient may be for EGD today Will resume statin due Pt seen in conjunction with Dr. Rizo who agrees with the assessment and plan of care. - Patient Problems (1) Acute anemia Current Visit: Yes Status: Acute (2) Acute respiratory failure with hypoxia Current Visit: Yes Status: Acute (3) Bilateral pneumonia Current Visit: Yes Status: Acute Subjective Date of service: 11/18/21 Principal diagnosis: Septic shock; AHRF; Anemia; Pneumonia; L. pleural effusion; HFrEF; Pulm HTN Interval history: Patient remained intubated Sinus 80s with APCs on monitor Objective Vital Signs Temp Pulse Pulse Resp BP Pulse Ox 11/18/21 12:15 75 105/45 94 11/18/21 11:45 75 25 H 112/45 95 11/18/21 11:30 74 23 109/48 89 11/18/21 11:15 78 35 H 121/51 94 11/18/21 11:00 77 24 112/52 79 L 11/18/21 10:45 76 16 126/39 89 11/18/21 10:30 82 13 134/51 78 L 11/18/21 10:15 79 17 122/47 84 11/18/21 10:00 85 16 135/68 89 11/18/21 09:45 81 18 133/59 88 11/18/21 09:30 79 12 128/53 96 11/18/21 09:15 78 13 114/60 92 11/18/21 09:00 79 14 104/56 92 11/18/21 08:45 77 13 114/46 98 11/18/21 08:38 78 17 120/51 97 11/18/21 08:30 80 13 120/51 98 11/18/21 08:15 80 14 113/47 98 11/18/21 08:00 98.6 F 83 77 10 L 133/43 95 11/18/21 07:45 80 12 125/49 94 11/18/21 07:30 82 16 118/63 100 11/18/21 07:16 77 17 129/48 97 11/18/21 07:00 80 10 L 133/46 99 11/18/21 06:45 81 13 127/49 94 11/18/21 06:30 85 12 117/54 98 11/18/21 06:15 76 18 111/50 97 11/18/21 06:00 76 14 109/45 98 11/18/21 05:45 74 20 100/40 96 11/18/21 05:30 75 17 108/39 96 11/18/21 05:15 76 17 112/42 99 11/18/21 05:00 82 10 L 125/48 87 11/18/21 04:46 135/60 89 11/18/21 04:30 79 10 L 118/57 87 11/18/21 04:15 78 10 L 124/51 94 11/18/21 04:11 81 123/49 98 11/18/21 04:00 97.5 F L 80 83 10 L 123/49 95 11/18/21 03:46 82 13 114/51 98 11/18/21 03:30 78 19 120/49 97 11/18/21 03:15 85 11 L 136/55 96 11/18/21 03:00 80 12 125/46 100 11/18/21 02:45 81 11 L 128/48 100 11/18/21 02:30 81 16 127/52 95 11/18/21 02:16 80 11 L 117/43 97 11/18/21 02:00 81 16 111/46 91 11/18/21 01:46 82 12 140/50 86 02/01/22 01:30 77 30 H 122/44 99 11/18/21 01:15 79 18 122/50 99 11/18/21 01:00 83 21 132/52 97 11/18/21 00:53 81 98 11/18/21 00:46 81 20 123/46 94 11/18/21 00:30 82 13 123/46 98 11/18/21 00:15 81 11 L 143/59 100 11/18/21 00:00 97.8 F 84 82 19 141/65 100 11/17/21 23:45 77 16 139/58 100 11/17/21 23:34 79 11/17/21 23:30 75 14 135/56 100 11/17/21 23:15 75 22 139/55 100 11/17/21 23:00 79 15 138/65 100 11/17/21 22:45 84 11 L 141/63 100 11/17/21 22:30 83 14 141/58 100 11/17/21 22:15 83 14 136/59 100 11/17/21 22:00 85 14 134/58 100 11/17/21 21:45 81 18 150/63 100 11/17/21 21:30 74 17 140/55 100 11/17/21 21:15 73 18 82/55 100 11/17/21 21:00 74 20 103/47 100 11/17/21 20:45 88 13 144/69 99 11/17/21 20:30 82 12 136/61 100 11/17/21 20:16 78 136/57 100 11/17/21 20:15 78 12 136/57 100 11/17/21 20:00 97.6 F 79 81 18 129/54 100 11/17/21 19:45 72 19 122/51 100 11/17/21 19:30 71 17 112/43 100 11/17/21 19:15 74 19 108/42 100 11/17/21 19:00 75 16 94/36 100 11/17/21 18:45 155/77 100 11/17/21 18:30 84 11 L 138/61 99 11/17/21 18:15 79 14 136/58 98 11/17/21 18:00 79 27 H 131/54 93 11/17/21 17:45 80 14 129/61 92 11/17/21 17:30 75 16 132/55 95 11/17/21 17:15 73 20 119/47 93 11/17/21 17:00 78 17 130/56 96 11/17/21 16:45 76 19 127/47 91 11/17/21 16:30 79 17 134/58 94 11/17/21 16:23 73 125/59 100 11/17/21 16:15 77 19 125/59 100 11/17/21 16:00 97.8 F 76 76 18 122/55 100 11/17/21 15:45 76 19 113/56 100 11/17/21 15:30 80 18 116/47 100 11/17/21 15:26 114/55 100 11/17/21 13:30 78 18 114/55 98 11/17/21 13:15 74 18 118/46 98 11/17/21 13:00 76 12 117/57 99 11/17/21 12:45 73 15 94/42 100 - Physical Examination General: Other (intubated) HEENT: Positive: Normocephaly Neck: Positive: neck supple, trachea midline Cardiac: Positive: Reg Rate and Rhythm Lungs: Positive: Ventilated Respirations Neuro: Positive: Other (intubated) Abdomen: Positive: Soft Skin: Negative: Rash, Wound Musculoskeletal: No Fluid Collection Extremities: Present: lower extr. pulses, edema - Labs and Meds CBC 11/17/21 11/17/21 11/18/21 Range/Units 11:55 18:55 00:26 WBC (4.5-11.0) K/mm3 RBC (3.65-5.03) M/mm3 Hgb 8.3 L 7.5 L 7.1 L (10.1-14.3) gm/dl Hct 26.9 L 24.8 L 23.6 L (30.3-42.9) % Plt Count (140-440) K/mm3 11/18/21 Range/Units 05:10 WBC 12.5 H (4.5-11.0) K/mm3 RBC 2.39 L (3.65-5.03) M/mm3 Hgb 6.1 L (10.1-14.3) gm/dl Hct 20.2 L (30.3-42.9) % Plt Count 150 (140-440) K/mm3 Comprehensive Metabolic Panel 11/18/21 11/18/21 Range/Units 05:10 07:10 Sodium 131 L D 148 H D (137-145) mmol/L Potassium 2.9 L* D 3.1 L (3.6-5.0) mmol/L Chloride 97.8 L 111.9 H (98-107) mmol/L Carbon Dioxide 23 27 (22-30) mmol/L BUN 58 H 63 H (7-17) mg/dL Creatinine 0.9 1.0 (0.6-1.2) mg/dL Glucose 665 H* 141 H (65-100) mg/dL Calcium 7.0 L 8.1 L D (8.4-10.2) mg/dL - Imaging and Cardiology EKG: report reviewed, image reviewed Stress echo: report reviewed Echo: report reviewed Cardiac cath: report reviewed - Telemetry EKG Rhythm: Sinus Rhythm - EKG Sinus rhythms and dysrhythmias: sinus rhythm, sinus tachycardia Ventricular dysrhythmias: ventricular premature com - Allied health notes Allied health notes reviewed: nursing
[2021-11-18] MEDS ORDERED: SODIUM CHLORIDE 0.9% 250ML 250 ML ONE (13:06)
[2021-11-18] MEDS ORDERED: WATER FOR IRRIG STERILE 250 ML BOTTLE IR ONE (13:09)
[2021-11-18] MEDS ORDERED: WATER FOR IRRIG STERILE 1,000 ML BOTTLE ONE (13:10)
[2021-11-18] MEDS ORDERED: EPINEPHrine 1 MG/10 ML SYRINGE ONE (13:16)
--- NOTE | 2021-11-18 13:35 | Progress Note ---
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 - follow EGD report - keep NPO - continue Protonix drip - trend H&H - complete D5W @ 100 mls/hr X 3 liters re: Hypernatremia - prn Levophed for target MAP > 65 mmHg - continue care as below otherwise; - Daily SAT and SBT assessment as tolerated - continue to wean supplemental oxygen for target O2 sat's > 90% acutely - VAP bundle addressed - continue lung protective strategies - continue bronchodilators with pulmonary hygiene per RT - wean per pulmonary driven protocols otherwise - avoid nephrotoxins, renally dose all medications - continue accuchecks with glycemic control per SSI (While critically ill target blood glucose of 140-180 mg/dL; avoid hypoglycemia) - sedation prn for target RASS 0 to -1 - antibiotics per ID recommendations - continue to avoid benzodiazepine's, reduce the possibility of delirium - prn analgesia per CPOT score - Maintenance of sleep-wake cycle, avoid delirium - continue enteral nutritional support at goal rate as tolerated - G.I. & VTE prophylaxis - PT/OT/ROM exercises - continue mobility protocols for pressure ulcer prophylaxis - Monitor hemodynamics closely - continue other care per attending / other consultants - discharge planning ongoing concurrently COVID SPECIFIC INTERVENTIONS - COVID-19 PCR negative .... Re-evaluate in am & prn CONDITION: CRITICAL PROGNOSIS: GUARDED CODE STATUS: FULL CODE The high probability of a clinically significant, sudden or life-threatening deterioration of the [respiratory, cardiovascular & neurologic] system(s) required my full and direct attention, intervention and personal management. The aggregate critical care time was [32] minutes without overlap. Time includes spent on; [x] Data Review and interpretation [x] Patient assessment and monitoring of vital signs [x] Documentation [x] Medication orders and management Subjective Date of service: 11/18/21 Principal diagnosis: Septic shock; AHRF; Anemia; Pneumonia; L. pleural effusion; HFrEF; Pulm HTN Interval history: Patient is seen today for: Septic shock; Acute hypoxemic respiratory failure; Anemia; Bilateral pneumonia; Left pleural effusion; HFrEF 30-35%; Pulm HTN RVSP 49 Seen and examined at bedside; 24hour events reviewed; nursing and respiratory care staff consulted; no adverse overnight events reported to me; resting in bed; remains on MVS; for EGD today; received 1 unit PRBC; s/p IVC filter now Objective Vital Signs - 12hr 11/18/21 11/18/21 11/18/21 01:46 02:00 02:16 Temperature Pulse Rate 82 81 80 Pulse Rate [ From Monitor] Respiratory 12 16 11 L Rate Blood Pressure 140/50 111/46 117/43 O2 Sat by Pulse 86 91 97 Oximetry 11/18/21 11/18/21 11/18/21 02:30 02:45 03:00 Temperature Pulse Rate 81 81 80 Pulse Rate [ From Monitor] Respiratory 16 11 L 12 Rate Blood Pressure 127/52 128/48 125/46 O2 Sat by Pulse 95 100 100 Oximetry 11/18/21 11/18/21 11/18/21 03:15 03:30 03:46 Temperature Pulse Rate 85 78 82 Pulse Rate [ From Monitor] Respiratory 11 L 19 13 Rate Blood Pressure 136/55 120/49 114/51 O2 Sat by Pulse 96 97 98 Oximetry 11/18/21 11/18/21 11/18/21 04:00 04:11 04:15 Temperature 97.5 F L Pulse Rate 80 81 78 Pulse Rate [ 83 From Monitor] Respiratory 10 L 10 L Rate Blood Pressure 123/49 123/49 124/51 O2 Sat by Pulse 95 98 94 Oximetry 11/18/21 11/18/21 11/18/21 04:30 04:46 05:00 Temperature Pulse Rate 79 82 Pulse Rate [ From Monitor] Respiratory 10 L 10 L Rate Blood Pressure 118/57 135/60 125/48 O2 Sat by Pulse 87 89 87 Oximetry 11/18/21 11/18/21 11/18/21 05:15 05:30 05:45 Temperature Pulse Rate 76 75 74 Pulse Rate [ From Monitor] Respiratory 17 17 20 Rate Blood Pressure 112/42 108/39 100/40 O2 Sat by Pulse 99 96 96 Oximetry 11/18/21 11/18/21 11/18/21 06:00 06:15 06:30 Temperature Pulse Rate 76 76 85 Pulse Rate [ From Monitor] Respiratory 14 18 12 Rate Blood Pressure 109/45 111/50 117/54 O2 Sat by Pulse 98 97 98 Oximetry 11/18/21 11/18/21 11/18/21 06:45 07:00 07:16 Temperature Pulse Rate 81 80 77 Pulse Rate [ From Monitor] Respiratory 13 10 L 17 Rate Blood Pressure 127/49 133/46 129/48 O2 Sat by Pulse 94 99 97 Oximetry 11/18/21 11/18/21 11/18/21 07:30 07:45 08:00 Temperature 98.6 F Pulse Rate 82 80 83 Pulse Rate [ 77 From Monitor] Respiratory 16 12 10 L Rate Blood Pressure 118/63 125/49 133/43 O2 Sat by Pulse 100 94 95 Oximetry 11/18/21 11/18/21 11/18/21 08:15 08:30 08:38 Temperature Pulse Rate 80 80 78 Pulse Rate [ From Monitor] Respiratory 14 13 17 Rate Blood Pressure 113/47 120/51 120/51 O2 Sat by Pulse 98 98 97 Oximetry 11/18/21 11/18/21 11/18/21 08:45 09:00 09:15 Temperature Pulse Rate 77 79 78 Pulse Rate [ From Monitor] Respiratory 13 14 13 Rate Blood Pressure 114/46 104/56 114/60 O2 Sat by Pulse 98 92 92 Oximetry 11/18/21 11/18/21 11/18/21 09:30 09:45 10:00 Temperature Pulse Rate 79 81 85 Pulse Rate [ From Monitor] Respiratory 12 18 16 Rate Blood Pressure 128/53 133/59 135/68 O2 Sat by Pulse 96 88 89 Oximetry 11/18/21 11/18/21 11/18/21 10:15 10:30 10:45 Temperature Pulse Rate 79 82 76 Pulse Rate [ From Monitor] Respiratory 17 13 16 Rate Blood Pressure 122/47 134/51 126/39 O2 Sat by Pulse 84 78 L 89 Oximetry 11/18/21 11/18/21 11/18/21 11:00 11:15 11:30 Temperature Pulse Rate 77 78 74 Pulse Rate [ From Monitor] Respiratory 24 35 H 23 Rate Blood Pressure 112/52 121/51 109/48 O2 Sat by Pulse 79 L 94 89 Oximetry 11/18/21 11/18/21 11/18/21 11:45 12:00 12:15 Temperature 97.9 F Pulse Rate 75 75 72 Pulse Rate [ From Monitor] Respiratory 25 H 32 H 29 H Rate Blood Pressure 112/45 111/43 105/45 O2 Sat by Pulse 95 94 94 Oximetry 11/18/21 11/18/2122 12:30 12:45 13:00 Temperature Pulse Rate 75 74 75 Pulse Rate [ From Monitor] Respiratory 21 16 13 Rate Blood Pressure 111/43 111/42 111/42 O2 Sat by Pulse 93 94 93 Oximetry 11/18/21 13:15 Temperature 97.5 F L Pulse Rate 73 Pulse Rate [ From Monitor] Respiratory 20 Rate Blood Pressure 106/42 O2 Sat by Pulse 94 Oximetry Constitutional: no acute distress, other (ETT to MVS, frail elderly woman with mildly increased respiratory effort at rest) Eyes: non-icteric ENT: oropharynx moist, oropharyngeal exudate pre (clear frothy), other (ETT 23 cm ELIZABETH) Neck: supple, no lymphadenopathy, no JVD Effort: normal, mildly labored Ascultation: Bilateral: diminished breath sounds, rhonchi Percussion: Bilateral: not dull Cardiovascular: regular rate and rhythm, other (S1,S2) Gastrointestinal: normoactive bowel sounds, soft, non-tender, non-distended Integumentary: normal Extremities: no edema, pink and warm, pulses normal, edema (trace) Neurologic: non-focal exam (grossly), pupils equal and round, CN II-XII normal, other (sedated) Psychiatric: mood appropriate, affect normal CBC and BMP: 11/19/21 04:55 11/19/21 04:55 ABG, PT/INR, D-dimer: ABG ABG pH 7.407 pH Units (7.350-7.450) 11/14/21 16:14 ABG pCO2 45.6 mm Hg 11/14/21 16:14 ABG pO2 80.6 mm Hg (80.0-90.0) 11/14/21 16:14 ABG O2 Saturation 97.0 % (95.0-99.0) 11/14/21 16:14 PT/INR, D-dimer PT 18.6 Sec. (12.2-14.9) H 11/03/21 22:32 INR 1.40 (0.87-1.13) H 11/03/21 22:32 D-Dimer 2655.00 ng/mlDDU (0-234) H 11/11/21 04:28 Abnormal lab findings: Abnormal Labs 11/03/21 11/03/21 11/03/21 22:32 22:32 22:32 WBC 29.3 H RBC 2.93 L Hgb 6.1 L Hct 21.9 L MCV 75 L MCH 21 L MCHC 28 L RDW 19.7 H Plt Count Seg Neuts % (Manual) 97.0 H Lymphocytes % (Manual) 3.0 L Seg Neutrophils # Man 28.4 H Lymphocytes # (Manual) 0.9 L Monocytes # (Manual) PT 18.6 H INR 1.40 H D-Dimer ABG pH ABG pO2 ABG HCO3 ABG O2 Saturation ABG Base Excess ABG Hemoglobin Oxyhemoglobin Sodium Potassium Chloride Carbon Dioxide 20 L BUN 33 H Glucose 119 H POC Glucose Lactic Acid Calcium 8.3 L Phosphorus Magnesium AST ALT Alkaline Phosphatase Lactate Dehydrogenase Troponin T 0.035 H C-Reactive Protein NT-Pro-B Natriuret Pep Total Protein Albumin LDL Cholesterol Direct 34 L Vitamin B12 Crossmatch 11/03/21 11/03/21 11/03/21 22:32 22:32 23:57 WBC RBC Hgb Hct MCV MCH MCHC RDW Plt Count Seg Neuts % (Manual) Lymphocytes % (Manual) Seg Neutrophils # Man Lymphocytes # (Manual) Monocytes # (Manual) PT INR D-Dimer ABG pH ABG pO2 ABG HCO3 ABG O2 Saturation ABG Base Excess ABG Hemoglobin Oxyhemoglobin Sodium Potassium Chloride Carbon Dioxide BUN Glucose POC Glucose Lactic Acid 3.70 H* Calcium Phosphorus Magnesium AST ALT Alkaline Phosphatase 139 H Lactate Dehydrogenase Troponin T C-Reactive Protein NT-Pro-B Natriuret Pep 7895 H Total Protein Albumin 3.5 L LDL Cholesterol Direct Vitamin B12 Crossmatch See Detail 11/04/21 11/04/21 11/05/21 00:59 13:58 00:51 WBC 27.9 H RBC 3.28 L Hgb 7.3 L Hct 25.5 L MCV 78 L MCH 22 L MCHC 29 L RDW 19.1 H Plt Count Seg Neuts % (Manual) 96.0 H Lymphocytes % (Manual) 2.0 L Seg Neutrophils # Man 26.8 H Lymphocytes # (Manual) 0.6 L Monocytes # (Manual) PT INR D-Dimer ABG pH ABG pO2 ABG HCO3 ABG O2 Saturation ABG Base Excess ABG Hemoglobin Oxyhemoglobin Sodium Potassium Chloride Carbon Dioxide BUN Glucose POC Glucose Lactic Acid Calcium Phosphorus Magnesium AST ALT Alkaline Phosphatase Lactate Dehydrogenase Troponin T 0.051 H D 0.032 H D C-Reactive Protein NT-Pro-B Natriuret Pep Total Protein Albumin LDL Cholesterol Direct Vitamin B12 Crossmatch 11/05/21 11/05/21 11/05/21 06:11 06:11 06:11 WBC 31.8 H RBC 3.57 L Hgb 8.0 L Hct 27.7 L MCV 78 L MCH 22 L MCHC 29 L RDW 19.2 H Plt Count Seg Neuts % (Manual) 91.0 H Lymphocytes % (Manual) 4.5 L Seg Neutrophils # Man 28.9 H Lymphocytes # (Manual) Monocytes # (Manual) 1.1 H PT INR D-Dimer 1494.53 H ABG pH ABG pO2 ABG HCO3 ABG O2 Saturation ABG Base Excess ABG Hemoglobin Oxyhemoglobin Sodium Potassium Chloride Carbon Dioxide 19 L BUN 42 H Glucose 115 H POC Glucose Lactic Acid Calcium Phosphorus Magnesium AST 43 H ALT Alkaline Phosphatase Lactate Dehydrogenase 187 H Troponin T C-Reactive Protein 22.20 H NT-Pro-B Natriuret Pep Total Protein 6.0 L Albumin 3.2 L LDL Cholesterol Direct Vitamin B12 Crossmatch 11/05/21 11/05/21 11/06/21 06:11 12:15 00:30 WBC RBC Hgb Hct MCV MCH MCHC RDW Plt Count Seg Neuts % (Manual) Lymphocytes % (Manual) Seg Neutrophils # Man Lymphocytes # (Manual) Monocytes # (Manual) PT INR D-Dimer ABG pH ABG pO2 ABG HCO3 ABG O2 Saturation ABG Base Excess ABG Hemoglobin Oxyhemoglobin Sodium Potassium Chloride Carbon Dioxide BUN Glucose POC Glucose 113 H 69 L Lactic Acid Calcium Phosphorus Magnesium AST ALT Alkaline Phosphatase Lactate Dehydrogenase Troponin T 0.033 H C-Reactive Protein NT-Pro-B Natriuret Pep Total Protein Albumin LDL Cholesterol Direct Vitamin B12 Crossmatch 11/06/21 11/06/21 11/06/21 05:50 15:50 15:50 WBC 25.5 H RBC 3.62 L Hgb 8.0 L Hct 27.5 L MCV 76 L MCH 22 L MCHC 29 L RDW 19.6 H Plt Count Seg Neuts % (Manual) 92.0 H Lymphocytes % (Manual) 5.0 L Seg Neutrophils # Man 23.5 H Lymphocytes # (Manual) Monocytes # (Manual) PT INR D-Dimer ABG pH 7.305 L ABG pO2 ABG HCO3 15.8 L ABG O2 Saturation ABG Base Excess -9.6 L ABG Hemoglobin 8.6 L Oxyhemoglobin 94.6 L Sodium Potassium Chloride 113.9 H Carbon Dioxide 17 L BUN 56 H Glucose 114 H POC Glucose Lactic Acid Calcium 7.9 L Phosphorus Magnesium AST 1410 H ALT 934 H Alkaline Phosphatase 142 H Lactate Dehydrogenase Troponin T C-Reactive Protein NT-Pro-B Natriuret Pep Total Protein 5.0 L Albumin 2.6 L LDL Cholesterol Direct Vitamin B12 Crossmatch 11/07/21 11/07/21 11/07/21 03:30 04:50 08:07 WBC RBC Hgb Hct MCV MCH MCHC RDW Plt Count Seg Neuts % (Manual) Lymphocytes % (Manual) Seg Neutrophils # Man Lymphocytes # (Manual) Monocytes # (Manual) PT INR D-Dimer ABG pH ABG pO2 296.9 H ABG HCO3 18.1 L ABG O2 Saturation 99.5 H ABG Base Excess -5.9 L ABG Hemoglobin 7.6 L Oxyhemoglobin Sodium Potassium Chloride Carbon Dioxide BUN Glucose POC Glucose 106 H 108 H Lactic Acid Calcium Phosphorus Magnesium AST ALT Alkaline Phosphatase Lactate Dehydrogenase Troponin T C-Reactive Protein NT-Pro-B Natriuret Pep Total Protein Albumin LDL Cholesterol Direct Vitamin B12 Crossmatch 11/08/21 11/08/21 11/08/21 03:10 18:05 23:43 WBC RBC Hgb Hct MCV MCH MCHC RDW Plt Count Seg Neuts % (Manual) Lymphocytes % (Manual) Seg Neutrophils # Man Lymphocytes # (Manual) Monocytes # (Manual) PT INR D-Dimer ABG pH ABG pO2 127.4 H ABG HCO3 ABG O2 Saturation ABG Base Excess -3.4 L ABG Hemoglobin 7.4 L Oxyhemoglobin Sodium Potassium Chloride Carbon Dioxide BUN Glucose POC Glucose 113 H 141 H Lactic Acid Calcium Phosphorus Magnesium AST ALT Alkaline Phosphatase Lactate Dehydrogenase Troponin T C-Reactive Protein NT-Pro-B Natriuret Pep Total Protein Albumin LDL Cholesterol Direct Vitamin B12 Crossmatch 11/08/21 11/08/21 11/09/21 Unknown Unknown 02:00 WBC 14.5 H RBC 3.35 L Hgb 7.5 L 8.1 L Hct 25.4 L 27.6 L MCV 76 L 76 L MCH 23 L 22 L MCHC RDW 19.9 H 19.9 H Plt Count Seg Neuts % (Manual) Lymphocytes % (Manual) Seg Neutrophils # Man Lymphocytes # (Manual) Monocytes # (Manual) PT INR D-Dimer ABG pH ABG pO2 ABG HCO3 ABG O2 Saturation ABG Base Excess ABG Hemoglobin Oxyhemoglobin Sodium 154 H D Potassium 3.3 L Chloride 120.7 H Carbon Dioxide 20 L BUN 38 H Glucose POC Glucose Lactic Acid Calcium 8.3 L Phosphorus Magnesium AST ALT Alkaline Phosphatase Lactate Dehydrogenase Troponin T C-Reactive Protein NT-Pro-B Natriuret Pep Total Protein Albumin LDL Cholesterol Direct Vitamin B12 Crossmatch 11/09/21 11/09/21 11/09/21 02:00 02:31 05:12 WBC RBC Hgb Hct MCV MCH MCHC RDW Plt Count Seg Neuts % (Manual) Lymphocytes % (Manual) Seg Neutrophils # Man Lymphocytes # (Manual) Monocytes # (Manual) PT INR D-Dimer ABG pH 7.479 H ABG pO2 121.3 H ABG HCO3 ABG O2 Saturation ABG Base Excess ABG Hemoglobin 7.3 L Oxyhemoglobin Sodium Potassium Chloride 112.5 H Carbon Dioxide BUN 33 H Glucose 161 H POC Glucose 135 H Lactic Acid Calcium Phosphorus Magnesium AST 251 H ALT 481 H Alkaline Phosphatase Lactate Dehydrogenase Troponin T C-Reactive Protein NT-Pro-B Natriuret Pep Total Protein 5.0 L Albumin 2.8 L LDL Cholesterol Direct Vitamin B12 Crossmatch 11/09/21 11/09/21 11/09/21 11:33 16:32 23:28 WBC RBC Hgb Hct MCV MCH MCHC RDW Plt Count Seg Neuts % (Manual) Lymphocytes % (Manual) Seg Neutrophils # Man Lymphocytes # (Manual) Monocytes # (Manual) PT INR D-Dimer ABG pH ABG pO2 ABG HCO3 ABG O2 Saturation ABG Base Excess ABG Hemoglobin Oxyhemoglobin Sodium Potassium Chloride Carbon Dioxide BUN Glucose POC Glucose 132 H 133 H 143 H Lactic Acid Calcium Phosphorus Magnesium AST ALT Alkaline Phosphatase Lactate Dehydrogenase Troponin T C-Reactive Protein NT-Pro-B Natriuret Pep Total Protein Albumin LDL Cholesterol Direct Vitamin B12 Crossmatch 11/10/21 11/10/21 11/10/21 04:00 04:00 05:35 WBC 16.0 H RBC 3.61 L Hgb 8.0 L Hct 27.1 L MCV 75 L MCH 22 L MCHC RDW 20.4 H Plt Count Seg Neuts % (Manual) Lymphocytes % (Manual) Seg Neutrophils # Man Lymphocytes # (Manual) Monocytes # (Manual) PT INR D-Dimer ABG pH ABG pO2 ABG HCO3 ABG O2 Saturation ABG Base Excess ABG Hemoglobin Oxyhemoglobin Sodium 149 H Potassium Chloride 114.1 H Carbon Dioxide BUN 31 H Glucose 148 H POC Glucose 132 H Lactic Acid Calcium 8.2 L Phosphorus Magnesium AST ALT Alkaline Phosphatase Lactate Dehydrogenase Troponin T C-Reactive Protein NT-Pro-B Natriuret Pep Total Protein Albumin LDL Cholesterol Direct Vitamin B12 Crossmatch 11/10/21 11/10/21 11/10/21 11:31 14:08 15:35 WBC RBC Hgb Hct MCV MCH MCHC RDW Plt Count Seg Neuts % (Manual) Lymphocytes % (Manual) Seg Neutrophils # Man Lymphocytes # (Manual) Monocytes # (Manual) PT INR D-Dimer ABG pH ABG pO2 126.6 H ABG HCO3 ABG O2 Saturation ABG Base Excess ABG Hemoglobin 7.4 L Oxyhemoglobin Sodium Potassium Chloride Carbon Dioxide BUN Glucose POC Glucose 147 H Lactic Acid Calcium Phosphorus Magnesium AST ALT Alkaline Phosphatase Lactate Dehydrogenase Troponin T C-Reactive Protein NT-Pro-B Natriuret Pep Total Protein Albumin LDL Cholesterol Direct Vitamin B12 1823 H Crossmatch 11/10/21 11/11/21 11/11/21 17:53 00:55 04:28 WBC RBC Hgb Hct MCV MCH MCHC RDW Plt Count Seg Neuts % (Manual) Lymphocytes % (Manual) Seg Neutrophils # Man Lymphocytes # (Manual) Monocytes # (Manual) PT INR D-Dimer ABG pH ABG pO2 ABG HCO3 ABG O2 Saturation ABG Base Excess ABG Hemoglobin Oxyhemoglobin Sodium 149 H Potassium Chloride 112.2 H Carbon Dioxide BUN 34 H Glucose 148 H POC Glucose 140 H 145 H Lactic Acid Calcium 7.9 L Phosphorus Magnesium AST 53 H ALT 203 H Alkaline Phosphatase Lactate Dehydrogenase Troponin T C-Reactive Protein NT-Pro-B Natriuret Pep Total Protein 4.9 L Albumin 2.6 L LDL Cholesterol Direct Vitamin B12 Crossmatch 11/11/21 11/11/21 11/11/21 04:28 04:28 05:28 WBC 20.9 H RBC 3.47 L Hgb 7.5 L Hct 26.0 L MCV 75 L MCH 22 L MCHC 29 L RDW 21.6 H Plt Count 132 L Seg Neuts % (Manual) Lymphocytes % (Manual) Seg Neutrophils # Man Lymphocytes # (Manual) Monocytes # (Manual) PT INR D-Dimer 2655.00 H ABG pH ABG pO2 ABG HCO3 ABG O2 Saturation ABG Base Excess ABG Hemoglobin Oxyhemoglobin Sodium Potassium Chloride Carbon Dioxide BUN Glucose POC Glucose 154 H Lactic Acid Calcium Phosphorus Magnesium AST ALT Alkaline Phosphatase Lactate Dehydrogenase Troponin T C-Reactive Protein NT-Pro-B Natriuret Pep Total Protein Albumin LDL Cholesterol Direct Vitamin B12 Crossmatch 11/11/21 11/11/21 11/12/21 12:38 18:13 00:14 WBC RBC Hgb Hct MCV MCH MCHC RDW Plt Count Seg Neuts % (Manual) Lymphocytes % (Manual) Seg Neutrophils # Man Lymphocytes # (Manual) Monocytes # (Manual) PT INR D-Dimer ABG pH ABG pO2 ABG HCO3 ABG O2 Saturation ABG Base Excess ABG Hemoglobin Oxyhemoglobin Sodium Potassium Chloride Carbon Dioxide BUN Glucose POC Glucose 137 H 108 H 137 H Lactic Acid Calcium Phosphorus Magnesium AST ALT Alkaline Phosphatase Lactate Dehydrogenase Troponin T C-Reactive Protein NT-Pro-B Natriuret Pep Total Protein Albumin LDL Cholesterol Direct Vitamin B12 Crossmatch 11/12/21 11/12/21 11/12/21 05:40 06:24 11:12 WBC RBC Hgb Hct MCV MCH MCHC RDW Plt Count Seg Neuts % (Manual) Lymphocytes % (Manual) Seg Neutrophils # Man Lymphocytes # (Manual) Monocytes # (Manual) PT INR D-Dimer ABG pH 7.586 H ABG pO2 150.6 H ABG HCO3 27.2 H ABG O2 Saturation 99.1 H ABG Base Excess 5.2 H ABG Hemoglobin 7.5 L Oxyhemoglobin Sodium Potassium Chloride Carbon Dioxide BUN Glucose POC Glucose 132 H 140 H Lactic Acid Calcium Phosphorus Magnesium AST ALT Alkaline Phosphatase Lactate Dehydrogenase Troponin T C-Reactive Protein NT-Pro-B Natriuret Pep Total Protein Albumin LDL Cholesterol Direct Vitamin B12 Crossmatch 11/12/21 11/12/21 11/12/21 14:50 14:50 17:13 WBC 19.8 H RBC 3.27 L Hgb 7.1 L Hct 24.5 L MCV 75 L MCH 22 L MCHC 29 L RDW 22.3 H Plt Count Seg Neuts % (Manual) Lymphocytes % (Manual) Seg Neutrophils # Man Lymphocytes # (Manual) Monocytes # (Manual) PT INR D-Dimer ABG pH ABG pO2 ABG HCO3 ABG O2 Saturation ABG Base Excess ABG Hemoglobin Oxyhemoglobin Sodium 150 H Potassium 3.3 L Chloride 112.0 H Carbon Dioxide BUN 40 H Glucose 151 H POC Glucose 121 H Lactic Acid Calcium 7.4 L Phosphorus 1.70 L Magnesium 1.40 L AST ALT Alkaline Phosphatase Lactate Dehydrogenase Troponin T C-Reactive Protein NT-Pro-B Natriuret Pep Total Protein Albumin LDL Cholesterol Direct Vitamin B12 Crossmatch 11/12/21 11/13/21 11/13/21 23:19 05:34 06:30 WBC RBC Hgb Hct MCV MCH MCHC RDW Plt Count Seg Neuts % (Manual) Lymphocytes % (Manual) Seg Neutrophils # Man Lymphocytes # (Manual) Monocytes # (Manual) PT INR D-Dimer ABG pH ABG pO2 ABG HCO3 ABG O2 Saturation ABG Base Excess ABG Hemoglobin Oxyhemoglobin Sodium 149 H Potassium Chloride 60.0 L Carbon Dioxide BUN 40 H Glucose 146 H POC Glucose 113 H 132 H Lactic Acid Calcium 7.3 L Phosphorus Magnesium 2.40 H AST ALT 72 H Alkaline Phosphatase Lactate Dehydrogenase Troponin T C-Reactive Protein NT-Pro-B Natriuret Pep Total Protein 5.2 L Albumin 2.2 L LDL Cholesterol Direct Vitamin B12 Crossmatch 11/13/21 11/13/21 11/13/21 06:30 08:30 11:19 WBC 21.2 H RBC 3.12 L Hgb 6.8 L Hct 23.2 L MCV 74 L MCH 22 L MCHC 29 L RDW 22.2 H Plt Count 135 L Seg Neuts % (Manual) Lymphocytes % (Manual) Seg Neutrophils # Man Lymphocytes # (Manual) Monocytes # (Manual) PT INR D-Dimer ABG pH ABG pO2 ABG HCO3 ABG O2 Saturation ABG Base Excess ABG Hemoglobin Oxyhemoglobin Sodium Potassium Chloride Carbon Dioxide BUN Glucose POC Glucose 136 H Lactic Acid Calcium Phosphorus Magnesium AST ALT Alkaline Phosphatase Lactate Dehydrogenase Troponin T C-Reactive Protein NT-Pro-B Natriuret Pep Total Protein Albumin LDL Cholesterol Direct Vitamin B12 Crossmatch See Detail 11/13/21 11/14/21 11/14/21 18:21 00:01 04:46 WBC 20.0 H RBC 3.41 L Hgb 7.9 L Hct 26.8 L MCV MCH 23 L MCHC 29 L RDW 24.0 H Plt Count Seg Neuts % (Manual) Lymphocytes % (Manual) Seg Neutrophils # Man Lymphocytes # (Manual) Monocytes # (Manual) PT INR D-Dimer ABG pH ABG pO2 ABG HCO3 ABG O2 Saturation ABG Base Excess ABG Hemoglobin Oxyhemoglobin Sodium Potassium Chloride Carbon Dioxide BUN Glucose POC Glucose 149 H 141 H Lactic Acid Calcium Phosphorus Magnesium AST ALT Alkaline Phosphatase Lactate Dehydrogenase Troponin T C-Reactive Protein NT-Pro-B Natriuret Pep Total Protein Albumin LDL Cholesterol Direct Vitamin B12 Crossmatch 11/14/21 11/14/21 11/14/21 04:46 05:10 11:10 WBC RBC Hgb Hct MCV MCH MCHC RDW Plt Count Seg Neuts % (Manual) Lymphocytes % (Manual) Seg Neutrophils # Man Lymphocytes # (Manual) Monocytes # (Manual) PT INR D-Dimer ABG pH ABG pO2 ABG HCO3 ABG O2 Saturation ABG Base Excess ABG Hemoglobin Oxyhemoglobin Sodium 148 H Potassium Chloride 113.1 H Carbon Dioxide BUN 43 H Glucose 140 H POC Glucose 132 H 133 H Lactic Acid Calcium 7.5 L Phosphorus Magnesium AST ALT Alkaline Phosphatase Lactate Dehydrogenase Troponin T C-Reactive Protein NT-Pro-B Natriuret Pep Total Protein Albumin LDL Cholesterol Direct Vitamin B12 Crossmatch 11/14/21 11/14/21 11/14/21 16:14 17:48 23:23 WBC RBC Hgb Hct MCV MCH MCHC RDW Plt Count Seg Neuts % (Manual) Lymphocytes % (Manual) Seg Neutrophils # Man Lymphocytes # (Manual) Monocytes # (Manual) PT INR D-Dimer ABG pH ABG pO2 ABG HCO3 28.0 H ABG O2 Saturation ABG Base Excess 3.1 H ABG Hemoglobin 5.8 L Oxyhemoglobin 94.8 L Sodium Potassium Chloride Carbon Dioxide BUN Glucose POC Glucose 130 H 136 H Lactic Acid Calcium Phosphorus Magnesium AST ALT Alkaline Phosphatase Lactate Dehydrogenase Troponin T C-Reactive Protein NT-Pro-B Natriuret Pep Total Protein Albumin LDL Cholesterol Direct Vitamin B12 Crossmatch 11/15/21 11/15/21 11/15/21 05:20 05:50 05:50 WBC 19.9 H RBC 3.50 L Hgb 8.2 L Hct 27.9 L MCV MCH 23 L MCHC 29 L RDW 24.9 H Plt Count Seg Neuts % (Manual) Lymphocytes % (Manual) Seg Neutrophils # Man Lymphocytes # (Manual) Monocytes # (Manual) PT INR D-Dimer ABG pH ABG pO2 ABG HCO3 ABG O2 Saturation ABG Base Excess ABG Hemoglobin Oxyhemoglobin Sodium 149 H Potassium Chloride 112.0 H Carbon Dioxide BUN 48 H Glucose 152 H POC Glucose 137 H Lactic Acid Calcium 7.9 L Phosphorus Magnesium AST ALT Alkaline Phosphatase Lactate Dehydrogenase Troponin T C-Reactive Protein NT-Pro-B Natriuret Pep Total Protein Albumin LDL Cholesterol Direct Vitamin B12 Crossmatch 11/15/21 11/15/21 11/15/21 12:12 17:07 23:24 WBC RBC Hgb Hct MCV MCH MCHC RDW Plt Count Seg Neuts % (Manual) Lymphocytes % (Manual) Seg Neutrophils # Man Lymphocytes # (Manual) Monocytes # (Manual) PT INR D-Dimer ABG pH ABG pO2 ABG HCO3 ABG O2 Saturation ABG Base Excess ABG Hemoglobin Oxyhemoglobin Sodium Potassium Chloride Carbon Dioxide BUN Glucose POC Glucose 114 H 135 H 123 H Lactic Acid Calcium Phosphorus Magnesium AST ALT Alkaline Phosphatase Lactate Dehydrogenase Troponin T C-Reactive Protein NT-Pro-B Natriuret Pep Total Protein Albumin LDL Cholesterol Direct Vitamin B12 Crossmatch 11/16/21 11/16/21 11/16/21 05:21 10:00 10:00 WBC 21.7 H RBC 2.57 L Hgb 6.0 L Hct 20.2 L D MCV MCH 24 L MCHC RDW 26.3 H Plt Count Seg Neuts % (Manual) Lymphocytes % (Manual) Seg Neutrophils # Man Lymphocytes # (Manual) Monocytes # (Manual) PT INR D-Dimer ABG pH ABG pO2 ABG HCO3 ABG O2 Saturation ABG Base Excess ABG Hemoglobin Oxyhemoglobin Sodium 153 H Potassium Chloride 114.9 H Carbon Dioxide BUN 74 H Glucose 155 H POC Glucose 127 H Lactic Acid Calcium 8.1 L Phosphorus Magnesium AST ALT Alkaline Phosphatase Lactate Dehydrogenase Troponin T C-Reactive Protein NT-Pro-B Natriuret Pep Total Protein Albumin LDL Cholesterol Direct Vitamin B12 Crossmatch 11/16/21 11/16/21 11/16/21 11:34 14:00 15:25 WBC 17.2 H RBC 2.08 L Hgb 4.7 L* Hct 16.2 L* MCV 78 L MCH 23 L MCHC 29 L RDW 26.0 H Plt Count Seg Neuts % (Manual) 87.0 H Lymphocytes % (Manual) 8.0 L Seg Neutrophils # Man 15.0 H Lymphocytes # (Manual) Monocytes # (Manual) 0.9 H PT INR D-Dimer ABG pH ABG pO2 ABG HCO3 ABG O2 Saturation ABG Base Excess ABG Hemoglobin Oxyhemoglobin Sodium Potassium Chloride Carbon Dioxide BUN Glucose POC Glucose 131 H Lactic Acid Calcium Phosphorus Magnesium AST ALT Alkaline Phosphatase Lactate Dehydrogenase Troponin T C-Reactive Protein NT-Pro-B Natriuret Pep Total Protein Albumin LDL Cholesterol Direct Vitamin B12 Crossmatch See Detail 11/16/21 11/16/21 11/16/21 15:25 17:21 22:43 WBC RBC Hgb 8.6 L D Hct 27.7 L D MCV MCH MCHC RDW Plt Count Seg Neuts % (Manual) Lymphocytes % (Manual) Seg Neutrophils # Man Lymphocytes # (Manual) Monocytes # (Manual) PT INR D-Dimer ABG pH ABG pO2 ABG HCO3 ABG O2 Saturation ABG Base Excess ABG Hemoglobin Oxyhemoglobin Sodium 148 H Potassium Chloride 113.2 H Carbon Dioxide BUN 84 H Glucose 164 H POC Glucose 124 H Lactic Acid Calcium 7.6 L Phosphorus Magnesium AST ALT Alkaline Phosphatase Lactate Dehydrogenase Troponin T C-Reactive Protein NT-Pro-B Natriuret Pep Total Protein Albumin LDL Cholesterol Direct Vitamin B12 Crossmatch 11/16/21 11/17/21 11/17/21 23:07 05:33 05:56 WBC 25.1 H RBC 3.47 L Hgb 8.7 L Hct 28.5 L MCV MCH 25 L MCHC RDW 22.3 H Plt Count Seg Neuts % (Manual) Lymphocytes % (Manual) Seg Neutrophils # Man Lymphocytes # (Manual) Monocytes # (Manual) PT INR D-Dimer ABG pH ABG pO2 ABG HCO3 ABG O2 Saturation ABG Base Excess ABG Hemoglobin Oxyhemoglobin Sodium Potassium Chloride Carbon Dioxide BUN Glucose POC Glucose 128 H 133 H Lactic Acid Calcium Phosphorus Magnesium AST ALT Alkaline Phosphatase Lactate Dehydrogenase Troponin T C-Reactive Protein NT-Pro-B Natriuret Pep Total Protein Albumin LDL Cholesterol Direct Vitamin B12 Crossmatch 11/17/21 11/17/21 11/17/21 05:56 11:00 11:55 WBC RBC Hgb 8.3 L Hct 26.9 L MCV MCH MCHC RDW Plt Count Seg Neuts % (Manual) Lymphocytes % (Manual) Seg Neutrophils # Man Lymphocytes # (Manual) Monocytes # (Manual) PT INR D-Dimer ABG pH ABG pO2 ABG HCO3 ABG O2 Saturation ABG Base Excess ABG Hemoglobin Oxyhemoglobin Sodium 151 H Potassium Chloride 113.6 H Carbon Dioxide BUN 85 H Glucose 132 H POC Glucose 121 H Lactic Acid Calcium 7.8 L Phosphorus Magnesium AST ALT Alkaline Phosphatase Lactate Dehydrogenase Troponin T C-Reactive Protein NT-Pro-B Natriuret Pep Total Protein 5.1 L Albumin 2.2 L LDL Cholesterol Direct Vitamin B12 Crossmatch 11/17/21 11/17/21 11/18/21 18:04 18:55 00:26 WBC RBC Hgb 7.5 L 7.1 L Hct 24.8 L 23.6 L MCV MCH MCHC RDW Plt Count Seg Neuts % (Manual) Lymphocytes % (Manual) Seg Neutrophils # Man Lymphocytes # (Manual) Monocytes # (Manual) PT INR D-Dimer ABG pH ABG pO2 ABG HCO3 ABG O2 Saturation ABG Base Excess ABG Hemoglobin Oxyhemoglobin Sodium Potassium Chloride Carbon Dioxide BUN Glucose POC Glucose 144 H Lactic Acid Calcium Phosphorus Magnesium AST ALT Alkaline Phosphatase Lactate Dehydrogenase Troponin T C-Reactive Protein NT-Pro-B Natriuret Pep Total Protein Albumin LDL Cholesterol Direct Vitamin B12 Crossmatch 11/18/21 11/18/21 11/18/21 00:43 05:10 05:10 WBC 12.5 H RBC 2.39 L Hgb 6.1 L Hct 20.2 L MCV MCH 25 L MCHC RDW 23.2 H Plt Count Seg Neuts % (Manual) Lymphocytes % (Manual) Seg Neutrophils # Man Lymphocytes # (Manual) Monocytes # (Manual) PT INR D-Dimer ABG pH ABG pO2 ABG HCO3 ABG O2 Saturation ABG Base Excess ABG Hemoglobin Oxyhemoglobin Sodium 131 L D Potassium 2.9 L* D Chloride 97.8 L Carbon Dioxide BUN 58 H Glucose 665 H* POC Glucose 139 H Lactic Acid Calcium 7.0 L Phosphorus 2.20 L D Magnesium 1.50 L AST ALT Alkaline Phosphatase Lactate Dehydrogenase Troponin T C-Reactive Protein NT-Pro-B Natriuret Pep Total Protein Albumin LDL Cholesterol Direct Vitamin B12 Crossmatch 11/18/21 11/18/21 11/18/21 05:23 07:10 10:45 WBC RBC Hgb Hct MCV MCH MCHC RDW Plt Count Seg Neuts % (Manual) Lymphocytes % (Manual) Seg Neutrophils # Man Lymphocytes # (Manual) Monocytes # (Manual) PT INR D-Dimer ABG pH ABG pO2 ABG HCO3 ABG O2 Saturation ABG Base Excess ABG Hemoglobin Oxyhemoglobin Sodium 148 H D Potassium 3.1 L Chloride 111.9 H Carbon Dioxide BUN 63 H Glucose 141 H POC Glucose 124 H Lactic Acid Calcium 8.1 L D Phosphorus Magnesium AST ALT Alkaline Phosphatase Lactate Dehydrogenase Troponin T C-Reactive Protein NT-Pro-B Natriuret Pep Total Protein Albumin LDL Cholesterol Direct Vitamin B12 Crossmatch See Detail 11/18/21 11:57 WBC RBC Hgb Hct MCV MCH MCHC RDW Plt Count Seg Neuts % (Manual) Lymphocytes % (Manual) Seg Neutrophils # Man Lymphocytes # (Manual) Monocytes # (Manual) PT INR D-Dimer ABG pH ABG pO2 ABG HCO3 ABG O2 Saturation ABG Base Excess ABG Hemoglobin Oxyhemoglobin Sodium Potassium Chloride Carbon Dioxide BUN Glucose POC Glucose 119 H Lactic Acid Calcium Phosphorus Magnesium AST ALT Alkaline Phosphatase Lactate Dehydrogenase Troponin T C-Reactive Protein NT-Pro-B Natriuret Pep Total Protein Albumin LDL Cholesterol Direct Vitamin B12 Crossmatch Chest x-ray: pending Allied health notes reviewed: nursing
[2021-11-18] MEDS ORDERED: propofoL 200 MG/20 ML VIAL IV ONE (13:51)
[2021-11-18] MEDS ORDERED: LIDOCAINE MPF (2%) 20 MG/1 ML VIAL 5 ML ONE (13:51)
[2021-11-18] MEDS ORDERED: KETAMINE/STERILE WATER 50 MG/ML SYRINGE ONE (13:53)
[2021-11-18] MEDS ORDERED: MIDAZOLAM 2 MG/2 ML INJ ONE (13:53)
[2021-11-18] MEDS ORDERED: SODIUM CHLORIDE 0.9% 250ML 250 ML IV SCH ×2 (14:00→14:15)
--- NOTE | 2021-11-18 14:00 | Anesthesia Consultation ---
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 Awake, alert with no pressors or sedation infusing immediately prior to procedure.
--- NOTE | 2021-11-18 14:05 | Anesthesia Day of Surgery ---
Anesthesia Day of Surgery - Day of Surgery Patient Examined: Yes Patient H&P Reviewed: Yes Patient is NPO: Yes
--- NOTE | 2021-11-18 14:28 | Progress Note ---
Assessment and Plan Cultures: SARS CoV2 PCR: negative 11/03/2021 blood culture: Group B streptococcus 11/04/2021 blood culture: no growth 11/11/2021 blood culture: No growth A/P: 81-year-old female with diabetes mellitus, hypertension, arthritis was admitted with shortness of breath. She was also having fever: #Severe sepsis with shock, secondary to bilateral pneumonia: likely from Group B Strep. COVID-19 negative #Group B Strep bacteremia: Likely secondary to above, no other source identified, other possibility is mild lower extremity cellulitis. Does have indwelling cardiac device, per patient it is a pacemaker. TTE showed no valvular or lead vegetations #Acute hypoxic respiratory failure: Secondary to above. Intubated, on the vent. #Acute DVT: unable to anticoagulate Recs: -Given fevers and worsening white count escalated to cefepime. fevers improving, white count remains high -IVC filter for DVT yesterday -overall guarded prognosis Mahogany Montes MD [facility] O: [phone] F: [phone] Subjective Date of service: 11/18/21 Principal diagnosis: Septic shock; AHRF; Anemia; Pneumonia; L. pleural effusion; HFrEF; Pulm HTN Interval history: Afebrile, white count 12.5. Remains on the vent. Objective - Exam Narrative Exam: Physical exam deferred to reduce risk of transmission of COVID-19. Please refer to primary team's note. - Constitutional Vitals: Vital Signs Temp Pulse Resp BP Pulse Ox 97.5 F L 76 18 119/94 95 11/18/21 13:15 11/18/21 14:00 11/18/21 14:00 11/18/21 14:00 11/18/21 14:00 Temperature -Last 24 Hours Temperature 97.5 F Temperature 97.9 F Temperature 98.6 F Temperature 97.5 F Temperature 97.8 F Temperature 97.6 F Temperature 97.8 F - Labs CBC & Chem 7: 11/18/21 05:10 11/18/21 07:10 Labs: Abnormal lab results 11/16/21 11/17/21 11/17/21 Range/Units 14:00 18:04 18:55 WBC (4.5-11.0) K/mm3 RBC (3.65-5.03) M/mm3 Hgb 7.5 L (10.1-14.3) gm/dl Hct 24.8 L (30.3-42.9) % MCH (28-32) pg RDW (13.2-15.2) % Sodium (137-145) mmol/L Potassium (3.6-5.0) mmol/L Chloride (98-107) mmol/L BUN (7-17) mg/dL Glucose (65-100) mg/dL POC Glucose 144 H (70-105) mg/dL Calcium (8.4-10.2) mg/dL Phosphorus (2.5-4.5) mg/dL Magnesium (1.7-2.3) mg/dL Crossmatch See Detail 11/18/21 11/18/21 11/18/21 Range/Units 00:26 00:43 05:10 WBC 12.5 H (4.5-11.0) K/mm3 RBC 2.39 L (3.65-5.03) M/mm3 Hgb 7.1 L 6.1 L (10.1-14.3) gm/dl Hct 23.6 L 20.2 L (30.3-42.9) % MCH 25 L (28-32) pg RDW 23.2 H (13.2-15.2) % Sodium (137-145) mmol/L Potassium (3.6-5.0) mmol/L Chloride (98-107) mmol/L BUN (7-17) mg/dL Glucose (65-100) mg/dL POC Glucose 139 H (70-105) mg/dL Calcium (8.4-10.2) mg/dL Phosphorus (2.5-4.5) mg/dL Magnesium (1.7-2.3) mg/dL Crossmatch 11/18/21 11/18/21 11/18/21 Range/Units 05:10 05:23 07:10 WBC (4.5-11.0) K/mm3 RBC (3.65-5.03) M/mm3 Hgb (10.1-14.3) gm/dl Hct (30.3-42.9) % MCH (28-32) pg RDW (13.2-15.2) % Sodium 131 L D 148 H D (137-145) mmol/L Potassium 2.9 L* D 3.1 L (3.6-5.0) mmol/L Chloride 97.8 L 111.9 H (98-107) mmol/L BUN 58 H 63 H (7-17) mg/dL Glucose 665 H* 141 H (65-100) mg/dL POC Glucose 124 H (70-105) mg/dL Calcium 7.0 L 8.1 L D (8.4-10.2) mg/dL Phosphorus 2.20 L D (2.5-4.5) mg/dL Magnesium 1.50 L (1.7-2.3) mg/dL Crossmatch 11/18/21 11/18/21 Range/Units 10:45 11:57 WBC (4.5-11.0) K/mm3 RBC (3.65-5.03) M/mm3 Hgb (10.1-14.3) gm/dl Hct (30.3-42.9) % MCH (28-32) pg RDW (13.2-15.2) % Sodium (137-145) mmol/L Potassium (3.6-5.0) mmol/L Chloride (98-107) mmol/L BUN (7-17) mg/dL Glucose (65-100) mg/dL POC Glucose 119 H (70-105) mg/dL Calcium (8.4-10.2) mg/dL Phosphorus (2.5-4.5) mg/dL Magnesium (1.7-2.3) mg/dL Crossmatch See Detail
[2021-11-18] MEDS ORDERED: PHENYLEPHRINE/NS 1,000 MCG/10 ML SYRINGE (OR USE) IV ONE (14:44)
--- NOTE | 2021-11-18 14:49 | Operative Report ---
Operative Report Operative Report: DOS: 11/18/21 SURGEON: James Yepez MD EGD with hemostasis and biopsy REPORT PREOPERATIVE DIAGNOSIS and POSTOPERATIVE DIAGNOSIS: GI Bleed ESTIMATED BLOOD LOSS: 10cc DESCRIPTION OF PROCEDURE: A high-resolution EGD scope was passed through the oropharynx, esophagus, stomach, and second portion of duodenum. The scope was carefully withdrawn. Retroflexion was performed in the stomach. At the end of the procedure, the scope was cleaned using normal technique. Vital signs monitored continuously throughout. SEDATION: Provided by Anesthesiology Services. COMPLICATIONS: None. FINDINGS: * No gross lesions in the 2nd portion of the duodenum * Large cratered ulcer in the posterior duodenal bulb about 2 cm in diameter. Visible vessel present. Mild active oozing from the ulcer bed. A total of 3 injections were performed around the ulcer for a total of 2.5 cc of dilute epinephrine and hemostasis was obtained. However, because location of the ulcer could not inject circumferentially around the ulcer only able to inject around 60% of the circumference * Mostly healed clean-based ulcer in the anterior duodenal bulb with surrounding edema and erythema, no high risk stigmata * Mild to moderate atrophic gastritis throughout the entire stomach. Scattered erythema. No active bleeding * GE junction located approximately 35 cm from incisors * 3 cm hiatal hernia * 1 cm area of nodularity at the GE junction concerning for dysplasia, cold forceps used to obtain biopsies * Remainder exam unremarkable RECOMMENDATIONS: Continue PPI drip for 48 more hours Trend hemoglobin closely Avoid blood thinners Start Carafate 1 g p.o. 3 times daily If patient rebleeds please consult IR for possible intervention, as no further GI interventions available
--- NOTE | 2021-11-18 15:29 | Post Anesthesia Evaluation ---
- Post Anesthesia Evaluation Patient Participated: No Airway Patent: Yes Stable Respiratory Function: Yes Nausea/Vomiting: No Temp > 96.8F: Yes Pain Manageable: Yes Adequeate Hydration: Yes Anesthesia Complications: No
[2021-11-18] MEDS: SUCRALFATE 1 GM/10 ML ORAL LIQD PO SCH ×2 (19:04→21:31)
[2021-11-18] MEDS: PRAVASTATIN 20 MG TAB PO SCH (21:59)
[2021-11-19] MEDS: fentaNYL 100 MCG/2 ML INJ IV PRN ×3 (00:11→23:16)
[2021-11-19] MEDS: INSULIN LISPRO 100 UNIT/ML SUB-Q SCH ×4 (00:18→18:20)
[2021-11-19 01:10] LABS: Hematocrit 28.3 % (30.3-42.9)
[2021-11-19] MEDS: DEXTROSE 5% IN WATER 1,000 ML IV SCH ×2 (02:03→17:50)
[2021-11-19] MEDS: PANTOPRAZOLE 80 MG in SODIUM CHLORIDE 0.9% 100 ML IV SCH ×2 (04:23→15:02)
[2021-11-19 05:47] LABS: Hematocrit 28.1 % (30.3-42.9); Hemoglobin 8.9 gm/dl (10.1-14.3); Mean Corpuscular HGB Conc 32 % (30-34); Mean Corpuscular Volume 84 fl (79-97); Platelet Count 157 K/mm3 (140-440); Red Blood Count 3.35 M/mm3 (3.65-5.03)
[2021-11-19] MEDS: FREE WATER PO SCH (06:00)
[2021-11-19] MEDS: DEXTROSE 10% *Hypoglycemia IV PRN ×2 (06:00→18:25)
[2021-11-19] MEDS: LEVOTHYROXINE 125 MCG TAB PO SCH (06:01)
[2021-11-19 06:03] LABS: BUN/Creatinine Ratio 59; Blood Urea Nitrogen 47 mg/dL (7-17); Calcium 7.1 mg/dL (8.4-10.2); Hemolysis Index 0
[2021-11-19 06:18] LABS: Red Cell Distribution Width 20.3 % (13.2-15.2)
[2021-11-19] MEDS: HYDROcodone/ACETAMINOPHEN 10-325MG TAB PO SCH ×3 (09:20→22:43)
[2021-11-19] MEDS: POLYETHYLENE GLYCOL 3350 17 GM POWDER PO SCH (09:20)
[2021-11-19] MEDS: DOCUSATE SODIUM 100 MG/10 ML ORAL LIQD PO SCH ×2 (09:20→22:54)
[2021-11-19] MEDS: busPIRone 5 MG TAB PO SCH ×2 (09:20→22:53)
[2021-11-19] MEDS: SENNOSIDES ORAL LIQD 8.8 MG/5 ML ORAL LIQD PO SCH ×2 (09:20→22:54)
[2021-11-19] MEDS: SUCRALFATE 1 GM/10 ML ORAL LIQD PO SCH ×4 (09:50→22:56)
[2021-11-19] MEDS: CEFEPIME/NS 1 GM/100 ML 1 GM/100 ML BAG IV SCH ×2 (09:50→15:05)
--- NOTE | 2021-11-19 10:54 | Progress Note ---
<LONNIE MAURICE - Last Filed: 11/19/21 18:06> Assessment and Plan Assessment and plan: This is a 81-year-old female with known history of diabetes mellitus, hypertension, PPM, and arthritis admitted for sepsis and acute hypoxia respiratory failure 2/2 bilateral pneumonia requiring intubation and ventilatory support Hospital Course to date: 11/04/2021: Empiric therapy with iv levaquin/vancomycin. COVID PCR pending. Will consult ID. PCCM consulted, will follow recs. Hypotensive this AM, ordered bolus and fluids at 150 cc/hr. May require pressor support if bp does not improve. 11/05/2021: GBS on bcx +, currently on rocephin IV. Currently on bipap due to respiratory distress overnight. Worsening BL opacities on CXR. May be volume overload vs pneumonia. Unfortunately bp too low for lasix at this point. WIll continue levophed and bipap. Once able to tolerate, may do trial of albumin/lasi x. Call attempt made to [facility]ir[facility], no response. Will try again tomorrow to update. 11/06/2021: Decompensated overnight requiring intubation. CXR shows worsening interstitial infiltrates. Currenlty on dopamine, levophed, vasopressin. PICC line ordered. Advised RN to place gamble for I/O monitoring. Would benefit from diuresis but very volume overloaded. Prognosis guarded 11/08: Off sedation this am, remains unresponsive only grimace to pain. Hold all sedatives agents for now, patient is off pressors this am. Hypernatremia from today's lab- D5W X1bag, and low K repleted, repeat lab in the am. Severe constipation also noted from KUB, BR added. 11/09: Sudden SPO2 drop in the 60s this am. Patient was manually bagged and deep suctioned. Patient is currently stable on the vent, repeat CXR with no significant change. D/w CCM Mucomyst and brochodilator added. Patient mentation is unchanged, continue to hold off on sedative agents. Neurology consulted. 11/10: Acute DVT noted on bilateral lower extremity Doppler ultrasound therefore she was started on Lovenox treatment dose. Failed SBT. Hypernatremia and hyperchloremia noted, free water flush adjusted. 11/11: Patient noted to be febrile with increasing of the cytosis, UA/BC sent and CXR ordered. ID escalated antibiotics to cefepime. CXR demonstrated mucous plug, bedside bronchoscopy was performed and O ETT was changed over bougie from 6 cm to 7.5. Patient was noted to have a pneumothorax postprocedure and chest tube was placed. Family updated by [facility]. Free water flush increased and will add Jaswant supplementation. 11/12: Patient not noted to follow commands, hypernatremia worsen/persist, increasing free water flush, potassium and magnesium and phosphorus repleted. Hemoglobin noted to be 7.1/24.5 from 7.03/12 yesterday. We will continue to trend and monitor. Vent changes per [facility]. Repeat CXR showed no residual pneumo thorax. Consider waterseal tomorrow. Given persistent leukocytosis antibiotics escalated to cefepime per ID. 11/13: Remains on cefepime and vancomycin, vent changes per [facility]. Anemia noted and given 1 unit PRBC. And beta-charleen held in setting of Levophed drip infusing. Remains on fentanyl drip. 11/14: Patient put on CPAP trial by [facility], will continue chest tube until after extubation. Will rest on assist control. CT brain was cancelled by [employer] and reordered. 11/15: Patient removed chest tube overnight. Will obtain cxr. remains on low dose levo. CTH completed with no acute findings. RT to place on CPAP. 11/16: Hypernatremia/hyperchloremia noted on the increase of day water flushes. Anemia noted and ordered PRBC. asked RT to place on cpap but not done yet 11/17: Patient remains on the vent, awake and following commands. H&H stable s/p 2units PRBCs. GI on consult, no intervention at this time. Will continue protonix gtt and serial H&H Q6hrs. Keep patient NPO for now, D5w added for hypernatremia and NPO status. Plan for IVC filter placement today by Vascular. 11/18: Patient is s/p IVC filter. H&H continue to trend down, hbg 6.1 this am, 1 unit of PRBCs ordered. Plan for possible EGD today by GI. Keep patient NPO, continue PPI drip and serial H&H Q6hrs. Electrolytes repleted, repeat lab in the am 11/19: S/p EGD- larger duodenal ulcer noted, see operative note. GI recommendat ions noted also noted. H&H stable this am. Keep patient on protonix gtt for now. Will keep patient NPO, continue IVF and serial H&H for now. Electrolytes repleted, repeat labs in the am Assessment and Plan #Septic Shock POA #Bilateral Pneumonia #Bacteremia - Presented with fevers, leukocytosis, and hypotension - COVID PCR negative - 11/04 Bcult with 3/4 group B strep bacteremia - Repeat Bculture NGTD - 11/04 2D Echo with no evidence of vegetation - ID on consult, appreciate recommendations - Continue current IV Abx per ID - F/u on culture data - Trend CBC #Acute Hypoxic Respiratory Failure 11/19 #Right Pneumothorax #Bilateral Pleural Effusion #Bilateral Pneumonia - COVID PCR negative - CXR shows Bilateral opacities, may be volume overloaded - CCM consulted, appreciate recommendations - Intubated on 11/06, ETT exchanged on 11/11 - 11/11 Bronchoscopy--Complicated by spontaneous pneumothorax - 11/11 S/p chest tube placement for right pneumothorax, removed by patient on 11/15 - 11/15 Repeat CXR with resolve Pneumo - This am Vent Setting:CPAP-30%,6,16,350 - Today ABG pending - Continue Nebs treatment - VAP bundle addressed - Aspiration precaution HOB above 30 - ABG and CXR per CCM - Continue SPO2 monitoring for SPO2 goal above 92% #CHF- EF 30-35% with PPM #Hypotension-Resolved #Septic Kristian - Was on 3 pressors initially - BP remains stable - SR on the monitor, HR 70-90s - 11/04 Echo-EF 30-35% - Cardiology on consult - Continue beta-charleen - Not on aspirin due to allergy - Statins on hold due to elevated LFTs - Continue blood pressure monitor per protocol - Maintain MAP above 65 #Acute Blood Loss #Acute GI Bleed #Acute Microcytic Anemia - Report of melena &black tarry stools - s/p a total of 4units of PRBCs since admit - H&H dropped again this am, 1unit of PRBC ordered - GI on consult - 11/18 EGD- Large cratered ulcer in the posterior duodenal bulb about 2 cm in diameter. Visible vessel present. Mild active oozing from the ulcer bed. A total of 3 injections were performed around the ulcer for a total of 2.5 cc of dilute epinephrine and hemostasis was obtained.--> See full report - Continue protonix gtt - Keep patient NPO - Serial H&H Q6hrs - Transfuse for H&H less than 7 - Hold AC for now #Hypokalemia #Hypernatremia - K repleted - Unable to give FWF due to NPO status - Continue D5W - Strict intake and output - Continue to monitor and replace electrolytes as needed - Trend BMP,mag, & phosp #Acute DVT in RLE - BLE doppler + Acute DVT in the right external iliac vein, common femoral vein, and superior aspect of femoral vein - Was on Therapeutic Lovenox- held to due GI Bleed - 11/17 s/p IVC filter placement by Vascular Surg #Acute Encephalopathy-improved - Probably r/t sedation vs infectious process - Awake and following commands - CT head noted - Neurology consulted - Resumed Buspar #Transaminitis/Shock Liver - Probably due to bacteria/spetic shock - Continue to Trend LFTs The high probability of a clinically significant, sudden or life threatening deterioration of the [multi] system(s) required my full and direct attention, intervention and personal management. The aggregate critical care time was [60] minutes. This time is in addition to time spent performing reported procedures but includes the following: [x] Data Review and interpretation [x] Patient assessment and monitoring of vital signs [x] Documentation [x] Medication orders and management Disposition Plan: ICU Total Time Spent with Patient (Minutes): 60 History Interval history: Patient seen and examined at the bedside. Patient remains on the vent, Awake and alert, following simple commands. s/p EGD from yesterday. Per RN X2 dark stools overnight, and urinary retention, patient was straight cath per protocol Hospitalist Physical - Constitutional Vitals: Temp Pulse Resp BP Pulse Ox 97.7 F 71 14 110/50 100 11/19/21 07:18 11/19/21 10:00 11/19/21 10:00 11/19/21 10:00 11/19/21 10:00 General appearance: Present: no acute distress - EENT Eyes: Present: PERRL ENT: hearing intact - Neck Neck: Present: normal ROM - Respiratory Respiratory effort: normal Respiratory: bilateral: rhonchi - Cardiovascular Rhythm: regular Heart Sounds: Present: S1 & S2 - Extremities Extremities: no ischemia, pulses intact, pulses symmetrical Extremity abnormal: edema - Peripheral Assessment Generalized Edema Type: Pitting Edema Degree: 2+ Capillary Refill: < 3 seconds Skin Temperature: Warm Peripheral Pulses: within normal limits - Abdominal General gastrointestinal: soft, non-distended, normal bowel sounds - Integumentary Integumentary: Present: warm, dry - Psychiatric Psychiatric: cooperative, other - Neurologic Neurologic: moves all extremities - Allied Health Allied health notes reviewed: nursing HEART Score - HEART Score Troponin: Troponin T 0.033 ng/mL (0.00-0.029) H 11/05/21 06:11 Results - Labs CBC & Chem 7: 11/19/21 04:55 11/19/21 04:55 Labs: Laboratory Last Values WBC 10.3 K/mm3 (4.5-11.0) 11/19/21 04:55 RBC 3.35 M/mm3 (3.65-5.03) L 11/19/21 04:55 Hgb 8.9 gm/dl (10.1-14.3) L 11/19/21 04:55 Hct 28.1 % (30.3-42.9) L 11/19/21 04:55 MCV 84 fl (79-97) 11/19/21 04:55 MCH 27 pg (28-32) L 11/19/21 04:55 MCHC 32 % (30-34) 11/19/21 04:55 RDW 20.3 % (13.2-15.2) H 11/19/21 04:55 Plt Count 157 K/mm3 (140-440) 11/19/21 04:55 Add Manual Diff Complete 11/16/21 15:25 Total Counted 100 11/16/21 15:25 Seg Neutrophils % Butter Melter 11/06/21 15:50 Seg Neuts % (Manual) 87.0 % (40.0-70.0) H 11/16/21 15:25 Band Neutrophils % 0 % 11/16/21 15:25 Lymphocytes % (Manual) 8.0 % (13.4-35.0) L 11/16/21 15:25 Reactive Lymphs % (Man) 0 % 11/16/21 15:25 Monocytes % (Manual) 5.0 % (0.0-7.3) 11/16/21 15:25 Eosinophils % (Manual) 0 % (0.0-4.3) 11/16/21 15:25 Basophils % (Manual) 0 % (0.0-1.8) 11/16/21 15:25 Metamyelocytes % 0 % 11/16/21 15:25 Myelocytes % 0 % 11/16/21 15:25 Promyelocytes % 0 % 11/16/21 15:25 Blast Cells % 0 % 11/16/21 15:25 Nucleated RBC % Not Reportable 11/16/21 15:25 Seg Neutrophils # Man 15.0 K/mm3 (1.8-7.7) H 11/16/21 15:25 Band Neutrophils # 0.0 K/mm3 11/16/21 15:25 Lymphocytes # (Manual) 1.4 K/mm3 (1.2-5.4) 11/16/21 15:25 Abs React Lymphs (Man) 0.0 K/mm3 11/16/21 15:25 Monocytes # (Manual) 0.9 K/mm3 (0.0-0.8) H 11/16/21 15:25 Eosinophils # (Manual) 0.0 K/mm3 (0.0-0.4) 11/16/21 15:25 Basophils # (Manual) 0.0 K/mm3 (0.0-0.1) 11/16/21 15:25 Metamyelocytes # 0.0 K/mm3 11/16/21 15:25 Myelocytes # 0.0 K/mm3 11/16/21 15:25 Promyelocytes # 0.0 K/mm3 11/16/21 15:25 Blast Cells # 0.0 K/mm3 11/16/21 15:25 WBC Morphology Not Reportable 11/16/21 15:25 Hypersegmented Neuts Not Reportable 11/16/21 15:25 Hyposegmented Neuts Not Reportable 11/16/21 15:25 Hypogranular Neuts Not Reportable 11/16/21 15:25 Smudge Cells Not Reportable 11/16/21 15:25 Toxic Granulation Not Reportable 11/16/21 15:25 Toxic Vacuolation Not Reportable 11/16/21 15:25 Dohle Bodies Not Reportable 11/16/21 15:25 Pelger-Huet Anomaly Not Reportable 11/16/21 15:25 Irina Rods Not Reportable 11/16/21 15:25 Platelet Estimate Consistent w auto 11/16/21 15:25 Clumped Platelets Rare 11/16/21 15:25 Plt Clumps, EDTA Not Reportable 11/16/21 15:25 Large Platelets Not Reportable 11/16/21 15:25 Giant Platelets Not Reportable 11/16/21 15:25 Platelet Satelliting Not Reportable 11/16/21 15:25 Plt Morphology Comment Not Reportable 11/16/21 15:25 RBC Morphology Not Reportable 11/16/21 15:25 Dimorphic RBCs Not Reportable 11/16/21 15:25 Polychromasia Not Reportable 11/16/21 15:25 Hypochromasia 2+ 11/16/21 15:25 Poikilocytosis Not Reportable 11/16/21 15:25 Anisocytosis 2+ 11/16/21 15:25 Microcytosis Not Reportable 11/16/21 15:25 Macrocytosis Not Reportable 11/16/21 15:25 Spherocytes Not Reportable 11/16/21 15:25 Pappenheimer Bodies Not Reportable 11/16/21 15:25 Sickle Cells Not Reportable 11/16/21 15:25 Target Cells 2+ 11/16/21 15:25 Tear Drop Cells Not Reportable 11/16/21 15:25 Ovalocytes Not Reportable 11/16/21 15:25 Helmet Cells Not Reportable 11/16/21 15:25 Odonnell-[place] Bodies Not Reportable 11/16/21 15:25 [place] Rings Not Reportable 11/16/21 15:25 Doyle Cells Not Reportable 11/16/21 15:25 Bite Cells Not Reportable 11/16/21 15:25 Crenated Cell Not Reportable 11/16/21 15:25 Elliptocytes Not Reportable 11/16/21 15:25 Acanthocytes (Spur) Not Reportable 11/16/21 15:25 Rouleaux Not Reportable 11/16/21 15:25 Hemoglobin C Crystals Not Reportable 11/16/21 15:25 Schistocytes Not Reportable 11/16/21 15:25 Malaria parasites Not Reportable 11/16/21 15:25 Godfrey Bodies Not Reportable 11/16/21 15:25 Hem Pathologist Commnt No 11/16/21 15:25 PT 18.6 Sec. (12.2-14.9) H 11/03/21 22:32 INR 1.40 (0.87-1.13) H 11/03/21 22:32 APTT 28.9 Sec. (24.2-36.6) 11/03/21 22:32 D-Dimer 2655.00 ng/mlDDU (0-234) H 11/11/21 04:28 ABG pH 7.407 pH Units (7.350-7.450) 11/14/21 16:14 ABG pCO2 45.6 mm Hg 11/14/21 16:14 ABG pO2 80.6 mm Hg (80.0-90.0) 11/14/21 16:14 ABG HCO3 28.0 mmol/L (20.0-26.0) H 11/14/21 16:14 ABG O2 Saturation 97.0 % (95.0-99.0) 11/14/21 16:14 ABG O2 Content 7.8 (0.0-44) 11/14/21 16:14 ABG Base Excess 3.1 mmol/L (-2.0-3.0) H 11/14/21 16:14 ABG Hemoglobin 5.8 gm/dl (12.0-16.0) L 11/14/21 16:14 ABG Carboxyhemoglobin 2.0 % (0.0-5.0) 11/14/21 16:14 ABG Methemoglobin 0.3 % (0.0-1.5) 11/14/21 16:14 Oxyhemoglobin 94.8 % (95.0-99.0) L 11/14/21 16:14 FiO2 35 % 11/14/21 16:14 Sodium 142 mmol/L (137-145) 11/19/21 04:55 Potassium 3.5 mmol/L (3.6-5.0) L 11/19/21 04:55 Chloride 108.6 mmol/L (98-107) H 11/19/21 04:55 Carbon Dioxide 23 mmol/L (22-30) 11/19/21 04:55 Anion Gap 14 mmol/L 11/19/21 04:55 BUN 47 mg/dL (7-17) H 11/19/21 04:55 Creatinine 0.8 mg/dL (0.6-1.2) 11/19/21 04:55 Estimated GFR > 60 ml/min 11/19/21 04:55 BUN/Creatinine Ratio 59 % 11/19/21 04:55 Glucose 207 mg/dL (65-100) H 11/19/21 04:55 POC Glucose 99 mg/dL (70-105) 11/19/21 08:33 Lactic Acid 3.70 mmol/L (0.7-2.0) H* 11/03/21 22:32 Calcium 7.1 mg/dL (8.4-10.2) L 11/19/21 04:55 Phosphorus 3.80 mg/dL (2.5-4.5) D 11/19/21 04:55 Magnesium 2.30 mg/dL (1.7-2.3) 11/19/21 04:55 Ferritin 52.6 ng/mL (10.0-200.0) 11/05/21 06:11 Total Bilirubin 0.50 mg/dL (0.1-1.2) 11/17/21 05:56 Direct Bilirubin < 0.2 mg/dL (0-0.2) 11/11/21 04:28 Indirect Bilirubin 0.1 mg/dL 11/11/21 04:28 AST 36 units/L (5-40) 11/17/21 05:56 ALT 47 units/L (7-56) 11/17/21 05:56 Alkaline Phosphatase 107 units/L (35-129) 11/17/21 05:56 Ammonia 42.0 umol/L (25-60) 11/10/21 14:08 Lactate Dehydrogenase 187 units/L (91-180) H 11/05/21 06:11 Troponin T 0.033 ng/mL (0.00-0.029) H 11/05/21 06:11 C-Reactive Protein 22.20 mg/dL (0.00-1.30) H 11/05/21 06:11 NT-Pro-B Natriuret Pep 7895 pg/mL (0-900) H 11/03/21 22:32 Total Protein 5.1 g/dL (6.3-8.2) L 11/17/21 05:56 Albumin 2.2 g/dL (3.9-5) L 11/17/21 05:56 Albumin/Globulin Ratio 0.8 % 11/17/21 05:56 Triglycerides 66 mg/dL (2-149) 11/03/21 22:32 Cholesterol 80 mg/dL (50-199) 11/03/21 22:32 LDL Cholesterol Direct 34 mg/dL (50-130) L 11/03/21 22:32 HDL Cholesterol 42 mg/dL (40-59) 11/03/21 22:32 Cholesterol/HDL Ratio 1.90 % 11/03/21 22:32 Vitamin B12 1823 pg/mL (211-911) H 11/10/21 14:08 TSH 1.510 mlU/mL (0.270-4.200) 11/10/21 14:08 Urine Color Yellow (Yellow) 11/11/21 09:00 Urine Turbidity Slightly-cloudy (Clear) 11/11/21 09:00 Urine pH 5.0 (5.0-7.0) 11/11/21 09:00 Ur Specific Skipwith 1.009 (1.003-1.030) 11/11/21 09:00 Urine Protein <15 mg/dl mg/dL (Negative) 11/11/21 09:00 Urine Glucose (UA) Neg mg/dL (Negative) 11/11/21 09:00 Urine Ketones Neg mg/dL (Negative) 11/11/21 09:00 Urine Blood Mod (Negative) 11/11/21 09:00 Urine Nitrite Neg (Negative) 11/11/21 09:00 Urine Bilirubin Neg (Negative) 11/11/21 09:00 Urine Urobilinogen < 2.0 mg/dL (<2.0) 11/11/21 09:00 Ur Leukocyte Esterase Neg (Negative) 11/11/21 09:00 Urine WBC (Auto) < 1.0 /HPF (0.0-6.0) 11/11/21 09:00 Urine RBC (Auto) < 1.0 /HPF (0.0-6.0) 11/11/21 09:00 Coronavirus (PCR) Negative (Negative) 11/10/21 08:30 Blood Type O POSITIVE 11/18/21 10:45 Antibody Screen Negative 11/18/21 10:45 Crossmatch See Detail 11/18/21 10:45 Gamble/IV: Voiding Method Incontinent Active Medications - Current Medications Current Medications: Generic Name Dose Route Start Last Admin Trade Name Freq PRN Reason Stop Dose Admin Acetaminophen 650 mg 11/04/21 02:03 11/16/21 15:43 Acetaminophen 325 Mg Tab PO 650 mg Q6H PRN Administration Pain MILD(1-3)/Fever >100.5/RODRIGUEZ Hydrocodone Bitart/Acetaminophen 1 each 11/15/21 20:00 11/19/21 09:20 Hydrocodone/Acetaminophen 10-325mg Tab PO 11/20/21 19:59 Not Given TID YOSSI Lipase/Protease/Amylase 1 each 11/08/21 11:09 Lipase 10,500/Protease 25,000/Amylase 43,750 (Units) Dr Lema FEEDTUBE PRN PRN For Clogged Feeding Tube Buspirone HCl 7.5 mg 11/17/21 22:00 11/19/21 09:20 Buspirone 5 Mg Tab PO Not Given BID YOSSI Dextrose 0 ml 11/10/21 10:52 11/19/21 06:00 Dextrose 10% *Hypoglycemia IV 75 ml PRN PRN Administration Hypoglycemia Docusate Sodium 100 mg 11/08/21 12:00 11/19/21 09:20 Docusate Sodium 100 Mg/10 Ml Oral Liqd PO Not Given BID YOSSI Fentanyl 25 mcg 11/17/21 12:07 11/19/21 10:26 Fentanyl 100 Mcg/2 Ml Inj IV 11/19/21 12:06 25 mcg Q2H PRN Administration Pain , Severe (7-10) Fentanyl 1 applic 11/17/21 13:00 11/17/21 13:00 Fentanyl 25 Mcg/Hr Patch 72hr TD 1 applic Q3D YOSSI Administration Hydrophilic Ointment 1 applic 11/06/21 04:02 Lip Therapy Vaseline TP Q2HR PRN Dry Lips NORepinephrine/NS 8 MG-250 ML 8 mg in 250 mls @ 3.75 mls/hr 11/05/21 09:00 11/18/21 03:26 Norepinephrine/Ns 8 Mg-250 Ml (Double Conc) IV 0 mcg/min TITRATE YOSSI 0 mls/hr Titration Protocol 2 MCG/MIN Vasopressin 20 unit/ Sodium 101 mls @ 9.09 mls/hr 11/05/21 23:00 11/06/21 01:00 Chloride IV 0.03 units/min TITR YOSSI 9.09 mls/hr Administration Protocol 0.03 UNITS/MIN Cefepime HCl 1 gm in 100 mls @ 200 mls/hr 11/12/21 16:00 11/19/21 09:50 Cefepime/Ns 1 Gm/100 Ml IV 200 mls/hr Q8H [facility] Administration Protocol Pantoprazole Sodium 80 mg/ 100 mls @ 10 mls/hr 11/16/21 17:00 11/19/21 04:23 Sodium Chloride IV 8 mg/hr DIRECT YOSSI 10 mls/hr Administration 8 MG/HR Fentanyl Citrate 2,000 mcg in 100 mls @ 3.12 mls/hr 11/17/21 13:00 11/17/21 19:05 Fentanyl Drip Premix IV 0 mcg/kg/hr TITR YOSSI 0 mls/hr Titration Protocol 1 MCG/KG/HR Dextrose 1,000 mls @ 75 mls/hr 11/17/21 16:00 11/19/21 02:03 D5w IV 11/21/21 05:19 75 mls/hr DIRECT YOSSI Administration Insulin Human Lispro 0 unit 11/06/21 12:00 11/19/21 06:01 Insulin Lispro 100 Unit/Ml SUB-Q Not Given Q6HR [facility] Protocol Levothyroxine Sodium 125 mcg 11/05/21 07:00 11/19/21 06:01 Levothyroxine 125 Mcg Tab PO Not Given DAILY@0600 [facility] Magnesium Hydroxide 30 ml 11/04/21 02:03 Magnesium Hydroxide (Mom) Oral Liqd Udc PO Q4H PRN Constipation Multi-Ingred Cream/Lotion/Oil/Oint 1 applic 11/06/21 04:02 Mineral Oil/Petrolatum, White Ophth Oint 3.5 Gm OU Q4HR PRN Dry Eye(s) Ondansetron HCl 4 mg 11/04/21 02:03 11/05/21 15:48 Ondansetron 4 Mg/2 Ml Inj IV 4 mg Q8H PRN Administration Nausea And Vomiting Polyethylene Glycol 17 gm 11/08/21 12:00 11/19/21 09:20 Polyethylene Glycol 3350 17 Gm Powder PO Not Given QDAY [facility] Pravastatin Sodium 20 mg 11/18/21 22:00 11/18/21 21:59 Pravastatin 20 Mg Tab PO Not Given QHS [facility] Senna 17.6 mg 11/08/21 22:00 11/19/21 09:20 Sennosides Oral Liqd 8.8 Mg/5 Ml Oral Liqd PO Not Given Q12HR YOSSI Simple Syrup 15 ml 11/08/21 11:09 Simple Syrup 15 Ml FEEDTUBE PRN PRN Hypoglycemia Simple Syrup 30 ml 11/08/21 11:09 Simple Syrup 15 Ml FEEDTUBE PRN PRN Hypoglycemia Sodium Bicarbonate 325 mg 11/08/21 11:09 Sodium Bicarbonate 325 Mg Tab FEEDTUBE PRN PRN For Clogged Feeding Tube Sodium Chloride 10 ml 11/04/21 10:00 11/19/21 09:51 Sodium Chloride 0.9% 10 Ml Flush Syringe IV Not Given BID YOSSI Sodium Chloride 10 ml 11/04/21 02:03 Sodium Chloride 0.9% 10 Ml Flush Syringe IV PRN PRN LINE FLUSH Sodium Chloride 10 ml 11/10/21 09:57 11/17/21 20:47 Sodium Chloride 0.9% 50 Ml Ivpb IV 10 ml PRN PRN Administration FLUSH Sucralfate 1 gm 11/18/21 16:30 11/19/21 09:50 Sucralfate 1 Gm/10 Ml Oral Liqd PO 1 gm ACHS YOSSI Administration Nutrition/Malnutrition Assess - Dietary Evaluation Nutrition/Malnutrition Findings: Nutrition Notes Start: 11/04/21 17:16 Freq: Status: Active Protocol: Document 11/17/21 15:18 [facility] (Rec: 11/17/21 15:27 [facility] [id number]) Nutrition Notes Initial or Follow up Reassessment Current Diagnosis Diabetes,Hypertension, Respiratory Failure Other Pertinent Diagnosis Septic shock, Bilat pneu, Anemia, GIB Current Diet NPO Labs/Tests Na 151 BUN 85 Pertinent Medications Levophed gtt, Vasopressin gtt, Protonix gtt, Fentanyl Height 5 ft Weight 62.4 kg Ethan Body Weight (kg) 45.45 BMI 26.9 Weight change and time frame Wt change noted Weight Status Appropriate Subjective/Other Information Per RN, TF turned off sec to scheduled procedure today (IVC filter placement). Pt remains on vent support. #1 Nutrition Diagnosis Inadequate oral intake Diagnosis Progress(for reassessment Continues documentation) Is patient on ventilator? Yes Is Patient Ambulatory and/or Out of Bed No REE-([facility]-confined to bed) 1207.824 Calculation Used for Recommendations [facility] Additional Notes Pro needs 1.2-2g/k-125g/ day Fluid needs 1ml/kcal Nutrition Intervention Nutrition Support: Resume TF when medically feasible. Pt to either receive Vital AF 1.2 at 40ml/ hr or Glucerna 1.2 at 40ml/hr. Goal #1 Resume TF to meet nutrient needs Follow-Up By: 11/19/21 Additional Comments F/U: TF restart/tolerance, vent status, Na lab/water flush <LEAH ALFONSO - Last Filed: 11/20/21 07:24> Assessment and Plan Assessment and plan: I saw and evaluated the patient. I agree with the findings and the plan of care as documented in the Nurse Practitioner's~note, with the following corrections and additions. Hospitalist Physical - Constitutional Vitals: Temp Pulse Resp BP Pulse Ox 97.8 F 63 20 142/52 100 11/20/21 04:00 11/20/21 05:00 11/20/21 05:00 11/20/21 05:00 11/20/21 05:00 HEART Score - HEART Score Troponin: Troponin T 0.033 ng/mL (0.00-0.029) H 11/05/21 06:11 Results - Labs CBC & Chem 7: 11/20/21 05:40 11/20/21 05:40 Labs: Laboratory Last Values WBC 8.2 K/mm3 (4.5-11.0) 11/20/21 05:40 RBC 3.40 M/mm3 (3.65-5.03) L 11/20/21 05:40 Hgb 9.1 gm/dl (10.1-14.3) L 11/20/21 05:40 Hct 28.8 % (30.3-42.9) L 11/20/21 05:40 MCV 85 fl (79-97) 11/20/21 05:40 MCH 27 pg (28-32) L 11/20/21 05:40 MCHC 31 % (30-34) 11/20/21 05:40 RDW 20.7 % (13.2-15.2) H 11/20/21 05:40 Plt Count 172 K/mm3 (140-440) 11/20/21 05:40 Add Manual Diff Complete 11/16/21 15:25 Total Counted 100 11/16/21 15:25 Seg Neutrophils % Butter Melter 11/06/21 15:50 Seg Neuts % (Manual) 87.0 % (40.0-70.0) H 11/16/21 15:25 Band Neutrophils % 0 % 11/16/21 15:25 Lymphocytes % (Manual) 8.0 % (13.4-35.0) L 11/16/21 15:25 Reactive Lymphs % (Man) 0 % 11/16/21 15:25 Monocytes % (Manual) 5.0 % (0.0-7.3) 11/16/21 15:25 Eosinophils % (Manual) 0 % (0.0-4.3) 11/16/21 15:25 Basophils % (Manual) 0 % (0.0-1.8) 11/16/21 15:25 Metamyelocytes % 0 % 11/16/21 15:25 Myelocytes % 0 % 11/16/21 15:25 Promyelocytes % 0 % 11/16/21 15:25 Blast Cells % 0 % 11/16/21 15:25 Nucleated RBC % Not Reportable 11/16/21 15:25 Seg Neutrophils # Man 15.0 K/mm3 (1.8-7.7) H 11/16/21 15:25 Band Neutrophils # 0.0 K/mm3 11/16/21 15:25 Lymphocytes # (Manual) 1.4 K/mm3 (1.2-5.4) 11/16/21 15:25 Abs React Lymphs (Man) 0.0 K/mm3 11/16/21 15:25 Monocytes # (Manual) 0.9 K/mm3 (0.0-0.8) H 11/16/21 15:25 Eosinophils # (Manual) 0.0 K/mm3 (0.0-0.4) 11/16/21 15:25 Basophils # (Manual) 0.0 K/mm3 (0.0-0.1) 11/16/21 15:25 Metamyelocytes # 0.0 K/mm3 11/16/21 15:25 Myelocytes # 0.0 K/mm3 11/16/21 15:25 Promyelocytes # 0.0 K/mm3 11/16/21 15:25 Blast Cells # 0.0 K/mm3 11/16/21 15:25 WBC Morphology Not Reportable 11/16/21 15:25 Hypersegmented Neuts Not Reportable 11/16/21 15:25 Hyposegmented Neuts Not Reportable 11/16/21 15:25 Hypogranular Neuts Not Reportable 11/16/21 15:25 Smudge Cells Not Reportable 11/16/21 15:25 Toxic Granulation Not Reportable 11/16/21 15:25 Toxic Vacuolation Not Reportable 11/16/21 15:25 Dohle Bodies Not Reportable 11/16/21 15:25 Pelger-Huet Anomaly Not Reportable 11/16/21 15:25 Irina Rods Not Reportable 11/16/21 15:25 Platelet Estimate Consistent w auto 11/16/21 15:25 Clumped Platelets Rare 11/16/21 15:25 Plt Clumps, EDTA Not Reportable 11/16/21 15:25 Large Platelets Not Reportable 11/16/21 15:25 Giant Platelets Not Reportable 11/16/21 15:25 Platelet Satelliting Not Reportable 11/16/21 15:25 Plt Morphology Comment Not Reportable 11/16/21 15:25 RBC Morphology Not Reportable 11/16/21 15:25 Dimorphic RBCs Not Reportable 11/16/21 15:25 Polychromasia Not Reportable 11/16/21 15:25 Hypochromasia 2+ 11/16/21 15:25 Poikilocytosis Not Reportable 11/16/21 15:25 Anisocytosis 2+ 11/16/21 15:25 Microcytosis Not Reportable 11/16/21 15:25 Macrocytosis Not Reportable 11/16/21 15:25 Spherocytes Not Reportable 11/16/21 15:25 Pappenheimer Bodies Not Reportable 11/16/21 15:25 Sickle Cells Not Reportable 11/16/21 15:25 Target Cells 2+ 11/16/21 15:25 Tear Drop Cells Not Reportable 11/16/21 15:25 Ovalocytes Not Reportable 11/16/21 15:25 Helmet Cells Not Reportable 11/16/21 15:25 Odonnell-[place] Bodies Not Reportable 11/16/21 15:25 [place] Rings Not Reportable 11/16/21 15:25 Doyle Cells Not Reportable 11/16/21 15:25 Bite Cells Not Reportable 11/16/21 15:25 Crenated Cell Not Reportable 11/16/21 15:25 Elliptocytes Not Reportable 11/16/21 15:25 Acanthocytes (Spur) Not Reportable 11/16/21 15:25 Rouleaux Not Reportable 11/16/21 15:25 Hemoglobin C Crystals Not Reportable 11/16/21 15:25 Schistocytes Not Reportable 11/16/21 15:25 Malaria parasites Not Reportable 11/16/21 15:25 Godfrey Bodies Not Reportable 11/16/21 15:25 Hem Pathologist Commnt No 11/16/21 15:25 PT 18.6 Sec. (12.2-14.9) H 11/03/21 22:32 INR 1.40 (0.87-1.13) H 11/03/21 22:32 APTT 28.9 Sec. (24.2-36.6) 11/03/21 22:32 D-Dimer 2655.00 ng/mlDDU (0-234) H 11/11/21 04:28 ABG pH 7.407 pH Units (7.350-7.450) 11/14/21 16:14 ABG pCO2 45.6 mm Hg 11/14/21 16:14 ABG pO2 80.6 mm Hg (80.0-90.0) 11/14/21 16:14 ABG HCO3 28.0 mmol/L (20.0-26.0) H 11/14/21 16:14 ABG O2 Saturation 97.0 % (95.0-99.0) 11/14/21 16:14 ABG O2 Content 7.8 (0.0-44) 11/14/21 16:14 ABG Base Excess 3.1 mmol/L (-2.0-3.0) H 11/14/21 16:14 ABG Hemoglobin 5.8 gm/dl (12.0-16.0) L 11/14/21 16:14 ABG Carboxyhemoglobin 2.0 % (0.0-5.0) 11/14/21 16:14 ABG Methemoglobin 0.3 % (0.0-1.5) 11/14/21 16:14 Oxyhemoglobin 94.8 % (95.0-99.0) L 11/14/21 16:14 FiO2 35 % 11/14/21 16:14 Sodium 141 mmol/L (137-145) 11/20/21 05:40 Potassium 3.5 mmol/L (3.6-5.0) L 11/20/21 05:40 Chloride 108.9 mmol/L (98-107) H 11/20/21 05:40 Carbon Dioxide 23 mmol/L (22-30) 11/20/21 05:40 Anion Gap 13 mmol/L 11/20/21 05:40 BUN 37 mg/dL (7-17) H 11/20/21 05:40 Creatinine 0.8 mg/dL (0.6-1.2) 11/20/21 05:40 Estimated GFR > 60 ml/min 11/20/21 05:40 BUN/Creatinine Ratio 46 % 11/20/21 05:40 Glucose 117 mg/dL (65-100) H 11/20/21 05:40 POC Glucose 88 mg/dL (70-105) 11/20/21 06:29 Lactic Acid 3.70 mmol/L (0.7-2.0) H* 11/03/21 22:32 Calcium 7.5 mg/dL (8.4-10.2) L 11/20/21 05:40 Phosphorus 3.80 mg/dL (2.5-4.5) D 11/19/21 04:55 Magnesium 2.30 mg/dL (1.7-2.3) 11/19/21 04:55 Ferritin 52.6 ng/mL (10.0-200.0) 11/05/21 06:11 Total Bilirubin 0.50 mg/dL (0.1-1.2) 11/17/21 05:56 Direct Bilirubin < 0.2 mg/dL (0-0.2) 11/11/21 04:28 Indirect Bilirubin 0.1 mg/dL 11/11/21 04:28 AST 36 units/L (5-40) 11/17/21 05:56 ALT 47 units/L (7-56) 11/17/21 05:56 Alkaline Phosphatase 107 units/L (35-129) 11/17/21 05:56 Ammonia 42.0 umol/L (25-60) 11/10/21 14:08 Lactate Dehydrogenase 187 units/L (91-180) H 11/05/21 06:11 Troponin T 0.033 ng/mL (0.00-0.029) H 11/05/21 06:11 C-Reactive Protein 22.20 mg/dL (0.00-1.30) H 11/05/21 06:11 NT-Pro-B Natriuret Pep 7895 pg/mL (0-900) H 11/03/21 22:32 Total Protein 5.1 g/dL (6.3-8.2) L 11/17/21 05:56 Albumin 2.2 g/dL (3.9-5) L 11/17/21 05:56 Albumin/Globulin Ratio 0.8 % 11/17/21 05:56 Triglycerides 66 mg/dL (2-149) 11/03/21 22:32 Cholesterol 80 mg/dL (50-199) 11/03/21 22:32 LDL Cholesterol Direct 34 mg/dL (50-130) L 11/03/21 22:32 HDL Cholesterol 42 mg/dL (40-59) 11/03/21 22:32 Cholesterol/HDL Ratio 1.90 % 11/03/21 22:32 Vitamin B12 1823 pg/mL (211-911) H 11/10/21 14:08 TSH 1.510 mlU/mL (0.270-4.200) 11/10/21 14:08 Urine Color Yellow (Yellow) 11/11/21 09:00 Urine Turbidity Slightly-cloudy (Clear) 11/11/21 09:00 Urine pH 5.0 (5.0-7.0) 11/11/21 09:00 Ur Specific Skipwith 1.009 (1.003-1.030) 11/11/21 09:00 Urine Protein <15 mg/dl mg/dL (Negative) 11/11/21 09:00 Urine Glucose (UA) Neg mg/dL (Negative) 11/11/21 09:00 Urine Ketones Neg mg/dL (Negative) 11/11/21 09:00 Urine Blood Mod (Negative) 11/11/21 09:00 Urine Nitrite Neg (Negative) 11/11/21 09:00 Urine Bilirubin Neg (Negative) 11/11/21 09:00 Urine Urobilinogen < 2.0 mg/dL (<2.0) 11/11/21 09:00 Ur Leukocyte Esterase Neg (Negative) 11/11/21 09:00 Urine WBC (Auto) < 1.0 /HPF (0.0-6.0) 11/11/21 09:00 Urine RBC (Auto) < 1.0 /HPF (0.0-6.0) 11/11/21 09:00 Coronavirus (PCR) Negative (Negative) 11/10/21 08:30 Blood Type O POSITIVE 11/18/21 10:45 Antibody Screen Negative 11/18/21 10:45 Crossmatch See Detail 11/18/21 10:45 Gamble/IV: Voiding Method Incontinent Active Medications - Current Medications Current Medications: Generic Name Dose Route Start Last Admin Trade Name Freq PRN Reason Stop Dose Admin Acetaminophen 650 mg 11/04/21 02:03 11/16/21 15:43 Acetaminophen 325 Mg Tab PO 650 mg Q6H PRN Administration Pain MILD(1-3)/Fever >100.5/RODRIGUEZ Hydrocodone Bitart/Acetaminophen 1 each 11/15/21 20:00 11/19/21 22:43 Hydrocodone/Acetaminophen 10-325mg Tab PO 11/20/21 19:59 Not Given TID YOSSI Lipase/Protease/Amylase 1 each 11/08/21 11:09 Lipase 10,500/Protease 25,000/Amylase 43,750 (Units) Dr Lema FEEDTUBE PRN PRN For Clogged Feeding Tube Buspirone HCl 7.5 mg 11/17/21 22:00 11/19/21 22:53 Buspirone 5 Mg Tab PO Not Given BID YOSSI Dextrose 0 ml 11/10/21 10:52 11/19/21 18:25 Dextrose 10% *Hypoglycemia IV 50 ml PRN PRN Administration Hypoglycemia Docusate Sodium 100 mg 11/08/21 12:00 11/19/21 22:54 Docusate Sodium 100 Mg/10 Ml Oral Liqd PO Not Given BID YOSSI Fentanyl 1 applic 11/17/21 13:00 11/17/21 13:00 Fentanyl 25 Mcg/Hr Patch 72hr TD 1 applic Q3D YOSSI Administration Fentanyl 25 mcg 11/19/21 18:09 11/20/21 07:05 Fentanyl 100 Mcg/2 Ml Inj IV 11/21/21 18:08 25 mcg Q2HR PRN Administration Pain, Moderate (4-6) Hydrophilic Ointment 1 applic 11/06/21 04:02 Lip Therapy Vaseline TP Q2HR PRN Dry Lips NORepinephrine/NS 8 MG-250 ML 8 mg in 250 mls @ 3.75 mls/hr 11/05/21 09:00 11/18/21 03:26 Norepinephrine/Ns 8 Mg-250 Ml (Double Conc) IV 0 mcg/min TITRATE YOSSI 0 mls/hr Titration Protocol 2 MCG/MIN Vasopressin 20 unit/ Sodium 101 mls @ 9.09 mls/hr 11/05/21 23:00 11/06/21 01:00 Chloride IV 0.03 units/min TITR YOSSI 9.09 mls/hr Administration Protocol 0.03 UNITS/MIN Pantoprazole Sodium 80 mg/ 100 mls @ 10 mls/hr 11/16/21 17:00 11/20/21 01:34 Sodium Chloride IV 8 mg/hr DIRECT YOSSI 10 mls/hr Administration 8 MG/HR Fentanyl Citrate 2,000 mcg in 100 mls @ 3.12 mls/hr 11/17/21 13:00 11/19/21 18:37 Fentanyl Drip Premix IV 0 mcg/kg/hr TITR YOSSI 0 mls/hr Titration Protocol 1 MCG/KG/HR Dextrose 1,000 mls @ 75 mls/hr 11/17/21 16:00 11/20/21 06:44 D5w IV 11/21/21 05:19 75 mls/hr DIRECT YOSSI Administration Insulin Human Lispro 0 unit 11/06/21 12:00 11/20/21 06:43 Insulin Lispro 100 Unit/Ml SUB-Q Not Given Q6HR [facility] Protocol Levothyroxine Sodium 125 mcg 11/05/21 07:00 11/20/21 05:29 Levothyroxine 125 Mcg Tab PO Not Given DAILY@0600 YOSSI Magnesium Hydroxide 30 ml 11/04/21 02:03 Magnesium Hydroxide (Mom) Oral Liqd Udc PO Q4H PRN Constipation Multi-Ingred Cream/Lotion/Oil/Oint 1 applic 11/06/21 04:02 Mineral Oil/Petrolatum, White Ophth Oint 3.5 Gm OU Q4HR PRN Dry Eye(s) Ondansetron HCl 4 mg 11/04/21 02:03 11/05/21 15:48 Ondansetron 4 Mg/2 Ml Inj IV 4 mg Q8H PRN Administration Nausea And Vomiting Polyethylene Glycol 17 gm 11/08/21 12:00 11/19/21 09:20 Polyethylene Glycol 3350 17 Gm Powder PO Not Given QDAY [facility] Pravastatin Sodium 20 mg 11/18/21 22:00 11/19/21 22:54 Pravastatin 20 Mg Tab PO Not Given QHS YOSSI Senna 17.6 mg 11/08/21 22:00 11/19/21 22:54 Sennosides Oral Liqd 8.8 Mg/5 Ml Oral Liqd PO Not Given Q12HR YOSSI Simple Syrup 15 ml 11/08/21 11:09 Simple Syrup 15 Ml FEEDTUBE PRN PRN Hypoglycemia Simple Syrup 30 ml 11/08/21 11:09 Simple Syrup 15 Ml FEEDTUBE PRN PRN Hypoglycemia Sodium Bicarbonate 325 mg 11/08/21 11:09 Sodium Bicarbonate 325 Mg Tab FEEDTUBE PRN PRN For Clogged Feeding Tube Sodium Chloride 10 ml 11/04/21 10:00 11/19/21 22:56 Sodium Chloride 0.9% 10 Ml Flush Syringe IV 10 ml BID YOSSI Administration Sodium Chloride 10 ml 11/04/21 02:03 Sodium Chloride 0.9% 10 Ml Flush Syringe IV PRN PRN LINE FLUSH Sodium Chloride 10 ml 11/10/21 09:57 11/17/21 20:47 Sodium Chloride 0.9% 50 Ml Ivpb IV 10 ml PRN PRN Administration FLUSH Sucralfate 1 gm 11/18/21 16:30 11/19/21 22:56 Sucralfate 1 Gm/10 Ml Oral Liqd PO 1 gm ACHS YOSSI Administration Nutrition/Malnutrition Assess - Dietary Evaluation Nutrition/Malnutrition Findings: Nutrition Notes Start: 11/04/21 17:16 Freq: Status: Active Protocol: Document 11/19/21 16:30 ISABELL (Rec: 11/19/21 16:41 [email or web address] [id number]) Nutrition Notes Initial or Follow up Brief Note Current Diet NPO. Height 5 ft Weight 62.4 kg Ethan Body Weight (kg) 45.45 BMI 26.9 Weight change and time frame No body weight change reported . Weight Status Appropriate Subjective/Other Information RD consult for routine F/U on TF resume. Pt presented GI bleed. Procedure: EGD with hemostasis and biopsy. Pt continues on mechanical ventilation. MD indication to continue NPO. Percent of energy/protein needs met: Pt currently on NPO. Nutrition Intervention Follow-Up By: 11/21/21 Additional Comments F/U: TF restart/tolerance, vent status, Na lab/water flush
--- NOTE | 2021-11-19 11:09 | Progress Note ---
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 - keep NPO - IR consultation if Hb drops further - continue Protonix drip - trend H&H - prn Levophed for target MAP > 65 mmHg - continue care as below otherwise; - Daily SAT and SBT assessment as tolerated - continue to wean supplemental oxygen for target O2 sat's > 90% acutely - VAP bundle addressed - continue lung protective strategies - continue bronchodilators with pulmonary hygiene per RT - wean per pulmonary driven protocols otherwise - avoid nephrotoxins, renally dose all medications - continue accuchecks with glycemic control per SSI (While critically ill target blood glucose of 140-180 mg/dL; avoid hypoglycemia) - sedation prn for target RASS 0 to -1 - antibiotics per ID recommendations - continue to avoid benzodiazepine's, reduce the possibility of delirium - prn analgesia per CPOT score - Maintenance of sleep-wake cycle, avoid delirium - continue enteral nutritional support at goal rate as tolerated - G.I. & VTE prophylaxis - PT/OT/ROM exercises - continue mobility protocols for pressure ulcer prophylaxis - Monitor hemodynamics closely - continue other care per attending / other consultants - discharge planning ongoing concurrently COVID SPECIFIC INTERVENTIONS - COVID-19 PCR negative .... Re-evaluate in am & prn CONDITION: CRITICAL PROGNOSIS: GUARDED CODE STATUS: FULL CODE The high probability of a clinically significant, sudden or life-threatening deterioration of the [respiratory, cardiovascular & neurologic] system(s) required my full and direct attention, intervention and personal management. The aggregate critical care time was [35] minutes without overlap. Time includes spent on; [x] Data Review and interpretation [x] Patient assessment and monitoring of vital signs [x] Documentation [x] Medication orders and management Subjective Date of service: 11/19/21 Principal diagnosis: Septic shock; AHRF; Anemia; Pneumonia; L. pleural effusion; HFrEF; Pulm HTN Interval history: Patient is seen today for: Septic shock; Acute hypoxemic respiratory failure; Anemia; Bilateral pneumonia; Left pleural effusion; HFrEF 30-35%; Pulm HTN RVSP 49 Seen and examined at bedside; 24hour events reviewed; nursing and respiratory care staff consulted; no adverse overnight events reported to me; resting in bed; remains on MVS; failed bedside SBT very quickly; EGD showed duodenal bulb ulcer and she remains on protonix drip; may need IR intervention if Hb drops further Objective Vital Signs - 12hr 11/18/21 11/18/21 11/18/21 23:15 23:18 23:30 Temperature Pulse Rate 68 70 67 Pulse Rate [ From Monitor] Respiratory 13 11 L 14 Rate Blood Pressure 114/43 115/51 113/47 O2 Sat by Pulse 97 98 99 Oximetry 11/18/21 11/19/21 11/19/21 23:45 00:00 00:15 Temperature 98.4 F Pulse Rate 70 65 70 Pulse Rate [ 69 From Monitor] Respiratory 13 19 15 Rate Blood Pressure 114/47 98/43 112/42 O2 Sat by Pulse 97 95 96 Oximetry 11/19/21 11/19/21 11/19/21 00:30 00:46 01:00 Temperature Pulse Rate 65 67 64 Pulse Rate [ From Monitor] Respiratory 24 16 17 Rate Blood Pressure 98/43 98/43 105/41 O2 Sat by Pulse 96 96 96 Oximetry 11/19/21 11/19/21 11/19/21 01:16 01:30 01:46 Temperature Pulse Rate 65 64 67 Pulse Rate [ From Monitor] Respiratory 19 15 15 Rate Blood Pressure 105/41 105/41 99/41 O2 Sat by Pulse 97 95 96 Oximetry 11/19/21 11/19/21 11/19/21 02:00 02:16 02:30 Temperature Pulse Rate 64 67 68 Pulse Rate [ From Monitor] Respiratory 20 12 29 H Rate Blood Pressure 103/42 103/42 103/42 O2 Sat by Pulse 98 98 98 Oximetry 11/19/21 11/19/21 11/19/21 02:46 03:00 03:09 Temperature Pulse Rate 66 66 65 Pulse Rate [ From Monitor] Respiratory 19 26 H Rate Blood Pressure 122/52 122/52 O2 Sat by Pulse 98 96 Oximetry 11/19/21 11/19/21 11/19/21 03:30 04:00 04:30 Temperature 97.8 F Pulse Rate 65 67 65 Pulse Rate [ 67 From Monitor] Respiratory 13 16 20 Rate Blood Pressure 117/50 117/50 115/51 O2 Sat by Pulse 97 100 97 Oximetry 11/19/21 11/19/21 11/19/21 05:00 05:30 06:00 Temperature Pulse Rate 62 64 66 Pulse Rate [ From Monitor] Respiratory 16 15 19 Rate Blood Pressure 111/51 109/51 109/51 O2 Sat by Pulse 98 97 Oximetry 11/19/21 11/19/21 11/19/21 06:30 07:00 07:18 Temperature 97.7 F Pulse Rate 62 68 Pulse Rate [ From Monitor] Respiratory 17 26 H Rate Blood Pressure 105/43 105/47 O2 Sat by Pulse 96 94 Oximetry 11/19/21 11/19/21 11/19/21 07:30 07:40 08:00 Temperature Pulse Rate 65 66 67 Pulse Rate [ 64 From Monitor] Respiratory 18 19 Rate Blood Pressure 105/47 102/44 102/44 O2 Sat by Pulse 94 95 95 Oximetry 11/19/21 11/19/21 11/19/21 08:30 09:00 09:30 Temperature Pulse Rate 70 67 68 Pulse Rate [ From Monitor] Respiratory 21 15 20 Rate Blood Pressure 114/51 110/47 110/50 O2 Sat by Pulse 97 97 99 Oximetry 11/19/21 10:00 Temperature Pulse Rate 71 Pulse Rate [ From Monitor] Respiratory 14 Rate Blood Pressure 110/50 O2 Sat by Pulse 100 Oximetry Constitutional: appears uncomfortable, other (ETT to MVS, frail elderly woman with mildly increased respiratory effort at rest) Eyes: non-icteric ENT: oropharynx moist, oropharyngeal exudate pre (clear frothy), other (ETT 23 cm ELIZABETH) Neck: supple, no lymphadenopathy, no JVD Effort: normal, mildly labored Ascultation: Bilateral: diminished breath sounds, rhonchi Percussion: Bilateral: not dull Cardiovascular: regular rate and rhythm, other (S1,S2) Gastrointestinal: normoactive bowel sounds, soft, non-tender, non-distended (protuberant) Integumentary: normal Extremities: no edema, pink and warm, pulses normal, edema (trace) Neurologic: non-focal exam (grossly), pupils equal and round, CN II-XII normal, other (sedated) Psychiatric: mood appropriate, affect normal CBC and BMP: 11/19/21 04:55 11/19/21 04:55 ABG, PT/INR, D-dimer: ABG ABG pH 7.407 pH Units (7.350-7.450) 11/14/21 16:14 ABG pCO2 45.6 mm Hg 11/14/21 16:14 ABG pO2 80.6 mm Hg (80.0-90.0) 11/14/21 16:14 ABG O2 Saturation 97.0 % (95.0-99.0) 11/14/21 16:14 PT/INR, D-dimer PT 18.6 Sec. (12.2-14.9) H 11/03/21 22:32 INR 1.40 (0.87-1.13) H 11/03/21 22:32 D-Dimer 2655.00 ng/mlDDU (0-234) H 11/11/21 04:28 Abnormal lab findings: Abnormal Labs 11/03/21 11/03/21 11/03/21 22:32 22:32 22:32 WBC 29.3 H RBC 2.93 L Hgb 6.1 L Hct 21.9 L MCV 75 L MCH 21 L MCHC 28 L RDW 19.7 H Plt Count Seg Neuts % (Manual) 97.0 H Lymphocytes % (Manual) 3.0 L Seg Neutrophils # Man 28.4 H Lymphocytes # (Manual) 0.9 L Monocytes # (Manual) PT 18.6 H INR 1.40 H D-Dimer ABG pH ABG pO2 ABG HCO3 ABG O2 Saturation ABG Base Excess ABG Hemoglobin Oxyhemoglobin Sodium Potassium Chloride Carbon Dioxide 20 L BUN 33 H Glucose 119 H POC Glucose Lactic Acid Calcium 8.3 L Phosphorus Magnesium AST ALT Alkaline Phosphatase Lactate Dehydrogenase Troponin T 0.035 H C-Reactive Protein NT-Pro-B Natriuret Pep Total Protein Albumin LDL Cholesterol Direct 34 L Vitamin B12 Crossmatch 11/03/21 11/03/21 11/03/21 22:32 22:32 23:57 WBC RBC Hgb Hct MCV MCH MCHC RDW Plt Count Seg Neuts % (Manual) Lymphocytes % (Manual) Seg Neutrophils # Man Lymphocytes # (Manual) Monocytes # (Manual) PT INR D-Dimer ABG pH ABG pO2 ABG HCO3 ABG O2 Saturation ABG Base Excess ABG Hemoglobin Oxyhemoglobin Sodium Potassium Chloride Carbon Dioxide BUN Glucose POC Glucose Lactic Acid 3.70 H* Calcium Phosphorus Magnesium AST ALT Alkaline Phosphatase 139 H Lactate Dehydrogenase Troponin T C-Reactive Protein NT-Pro-B Natriuret Pep 7895 H Total Protein Albumin 3.5 L LDL Cholesterol Direct Vitamin B12 Crossmatch See Detail 11/04/21 11/04/21 11/05/21 00:59 13:58 00:51 WBC 27.9 H RBC 3.28 L Hgb 7.3 L Hct 25.5 L MCV 78 L MCH 22 L MCHC 29 L RDW 19.1 H Plt Count Seg Neuts % (Manual) 96.0 H Lymphocytes % (Manual) 2.0 L Seg Neutrophils # Man 26.8 H Lymphocytes # (Manual) 0.6 L Monocytes # (Manual) PT INR D-Dimer ABG pH ABG pO2 ABG HCO3 ABG O2 Saturation ABG Base Excess ABG Hemoglobin Oxyhemoglobin Sodium Potassium Chloride Carbon Dioxide BUN Glucose POC Glucose Lactic Acid Calcium Phosphorus Magnesium AST ALT Alkaline Phosphatase Lactate Dehydrogenase Troponin T 0.051 H D 0.032 H D C-Reactive Protein NT-Pro-B Natriuret Pep Total Protein Albumin LDL Cholesterol Direct Vitamin B12 Crossmatch 11/05/21 11/05/21 11/05/21 06:11 06:11 06:11 WBC 31.8 H RBC 3.57 L Hgb 8.0 L Hct 27.7 L MCV 78 L MCH 22 L MCHC 29 L RDW 19.2 H Plt Count Seg Neuts % (Manual) 91.0 H Lymphocytes % (Manual) 4.5 L Seg Neutrophils # Man 28.9 H Lymphocytes # (Manual) Monocytes # (Manual) 1.1 H PT INR D-Dimer 1494.53 H ABG pH ABG pO2 ABG HCO3 ABG O2 Saturation ABG Base Excess ABG Hemoglobin Oxyhemoglobin Sodium Potassium Chloride Carbon Dioxide 19 L BUN 42 H Glucose 115 H POC Glucose Lactic Acid Calcium Phosphorus Magnesium AST 43 H ALT Alkaline Phosphatase Lactate Dehydrogenase 187 H Troponin T C-Reactive Protein 22.20 H NT-Pro-B Natriuret Pep Total Protein 6.0 L Albumin 3.2 L LDL Cholesterol Direct Vitamin B12 Crossmatch 11/05/21 11/05/21 11/06/21 06:11 12:15 00:30 WBC RBC Hgb Hct MCV MCH MCHC RDW Plt Count Seg Neuts % (Manual) Lymphocytes % (Manual) Seg Neutrophils # Man Lymphocytes # (Manual) Monocytes # (Manual) PT INR D-Dimer ABG pH ABG pO2 ABG HCO3 ABG O2 Saturation ABG Base Excess ABG Hemoglobin Oxyhemoglobin Sodium Potassium Chloride Carbon Dioxide BUN Glucose POC Glucose 113 H 69 L Lactic Acid Calcium Phosphorus Magnesium AST ALT Alkaline Phosphatase Lactate Dehydrogenase Troponin T 0.033 H C-Reactive Protein NT-Pro-B Natriuret Pep Total Protein Albumin LDL Cholesterol Direct Vitamin B12 Crossmatch 11/06/21 11/06/21 11/06/21 05:50 15:50 15:50 WBC 25.5 H RBC 3.62 L Hgb 8.0 L Hct 27.5 L MCV 76 L MCH 22 L MCHC 29 L RDW 19.6 H Plt Count Seg Neuts % (Manual) 92.0 H Lymphocytes % (Manual) 5.0 L Seg Neutrophils # Man 23.5 H Lymphocytes # (Manual) Monocytes # (Manual) PT INR D-Dimer ABG pH 7.305 L ABG pO2 ABG HCO3 15.8 L ABG O2 Saturation ABG Base Excess -9.6 L ABG Hemoglobin 8.6 L Oxyhemoglobin 94.6 L Sodium Potassium Chloride 113.9 H Carbon Dioxide 17 L BUN 56 H Glucose 114 H POC Glucose Lactic Acid Calcium 7.9 L Phosphorus Magnesium AST 1410 H ALT 934 H Alkaline Phosphatase 142 H Lactate Dehydrogenase Troponin T C-Reactive Protein NT-Pro-B Natriuret Pep Total Protein 5.0 L Albumin 2.6 L LDL Cholesterol Direct Vitamin B12 Crossmatch 11/07/21 11/07/21 11/07/21 03:30 04:50 08:07 WBC RBC Hgb Hct MCV MCH MCHC RDW Plt Count Seg Neuts % (Manual) Lymphocytes % (Manual) Seg Neutrophils # Man Lymphocytes # (Manual) Monocytes # (Manual) PT INR D-Dimer ABG pH ABG pO2 296.9 H ABG HCO3 18.1 L ABG O2 Saturation 99.5 H ABG Base Excess -5.9 L ABG Hemoglobin 7.6 L Oxyhemoglobin Sodium Potassium Chloride Carbon Dioxide BUN Glucose POC Glucose 106 H 108 H Lactic Acid Calcium Phosphorus Magnesium AST ALT Alkaline Phosphatase Lactate Dehydrogenase Troponin T C-Reactive Protein NT-Pro-B Natriuret Pep Total Protein Albumin LDL Cholesterol Direct Vitamin B12 Crossmatch 11/08/21 11/08/21 11/08/21 03:10 18:05 23:43 WBC RBC Hgb Hct MCV MCH MCHC RDW Plt Count Seg Neuts % (Manual) Lymphocytes % (Manual) Seg Neutrophils # Man Lymphocytes # (Manual) Monocytes # (Manual) PT INR D-Dimer ABG pH ABG pO2 127.4 H ABG HCO3 ABG O2 Saturation ABG Base Excess -3.4 L ABG Hemoglobin 7.4 L Oxyhemoglobin Sodium Potassium Chloride Carbon Dioxide BUN Glucose POC Glucose 113 H 141 H Lactic Acid Calcium Phosphorus Magnesium AST ALT Alkaline Phosphatase Lactate Dehydrogenase Troponin T C-Reactive Protein NT-Pro-B Natriuret Pep Total Protein Albumin LDL Cholesterol Direct Vitamin B12 Crossmatch 11/08/21 11/08/21 11/09/21 Unknown Unknown 02:00 WBC 14.5 H RBC 3.35 L Hgb 7.5 L 8.1 L Hct 25.4 L 27.6 L MCV 76 L 76 L MCH 23 L 22 L MCHC RDW 19.9 H 19.9 H Plt Count Seg Neuts % (Manual) Lymphocytes % (Manual) Seg Neutrophils # Man Lymphocytes # (Manual) Monocytes # (Manual) PT INR D-Dimer ABG pH ABG pO2 ABG HCO3 ABG O2 Saturation ABG Base Excess ABG Hemoglobin Oxyhemoglobin Sodium 154 H D Potassium 3.3 L Chloride 120.7 H Carbon Dioxide 20 L BUN 38 H Glucose POC Glucose Lactic Acid Calcium 8.3 L Phosphorus Magnesium AST ALT Alkaline Phosphatase Lactate Dehydrogenase Troponin T C-Reactive Protein NT-Pro-B Natriuret Pep Total Protein Albumin LDL Cholesterol Direct Vitamin B12 Crossmatch 11/09/21 11/09/21 11/09/21 02:00 02:31 05:12 WBC RBC Hgb Hct MCV MCH MCHC RDW Plt Count Seg Neuts % (Manual) Lymphocytes % (Manual) Seg Neutrophils # Man Lymphocytes # (Manual) Monocytes # (Manual) PT INR D-Dimer ABG pH 7.479 H ABG pO2 121.3 H ABG HCO3 ABG O2 Saturation ABG Base Excess ABG Hemoglobin 7.3 L Oxyhemoglobin Sodium Potassium Chloride 112.5 H Carbon Dioxide BUN 33 H Glucose 161 H POC Glucose 135 H Lactic Acid Calcium Phosphorus Magnesium AST 251 H ALT 481 H Alkaline Phosphatase Lactate Dehydrogenase Troponin T C-Reactive Protein NT-Pro-B Natriuret Pep Total Protein 5.0 L Albumin 2.8 L LDL Cholesterol Direct Vitamin B12 Crossmatch 11/09/21 11/09/21 11/09/21 11:33 16:32 23:28 WBC RBC Hgb Hct MCV MCH MCHC RDW Plt Count Seg Neuts % (Manual) Lymphocytes % (Manual) Seg Neutrophils # Man Lymphocytes # (Manual) Monocytes # (Manual) PT INR D-Dimer ABG pH ABG pO2 ABG HCO3 ABG O2 Saturation ABG Base Excess ABG Hemoglobin Oxyhemoglobin Sodium Potassium Chloride Carbon Dioxide BUN Glucose POC Glucose 132 H 133 H 143 H Lactic Acid Calcium Phosphorus Magnesium AST ALT Alkaline Phosphatase Lactate Dehydrogenase Troponin T C-Reactive Protein NT-Pro-B Natriuret Pep Total Protein Albumin LDL Cholesterol Direct Vitamin B12 Crossmatch 11/10/21 11/10/21 11/10/21 04:00 04:00 05:35 WBC 16.0 H RBC 3.61 L Hgb 8.0 L Hct 27.1 L MCV 75 L MCH 22 L MCHC RDW 20.4 H Plt Count Seg Neuts % (Manual) Lymphocytes % (Manual) Seg Neutrophils # Man Lymphocytes # (Manual) Monocytes # (Manual) PT INR D-Dimer ABG pH ABG pO2 ABG HCO3 ABG O2 Saturation ABG Base Excess ABG Hemoglobin Oxyhemoglobin Sodium 149 H Potassium Chloride 114.1 H Carbon Dioxide BUN 31 H Glucose 148 H POC Glucose 132 H Lactic Acid Calcium 8.2 L Phosphorus Magnesium AST ALT Alkaline Phosphatase Lactate Dehydrogenase Troponin T C-Reactive Protein NT-Pro-B Natriuret Pep Total Protein Albumin LDL Cholesterol Direct Vitamin B12 Crossmatch 11/10/21 11/10/21 11/10/21 11:31 14:08 15:35 WBC RBC Hgb Hct MCV MCH MCHC RDW Plt Count Seg Neuts % (Manual) Lymphocytes % (Manual) Seg Neutrophils # Man Lymphocytes # (Manual) Monocytes # (Manual) PT INR D-Dimer ABG pH ABG pO2 126.6 H ABG HCO3 ABG O2 Saturation ABG Base Excess ABG Hemoglobin 7.4 L Oxyhemoglobin Sodium Potassium Chloride Carbon Dioxide BUN Glucose POC Glucose 147 H Lactic Acid Calcium Phosphorus Magnesium AST ALT Alkaline Phosphatase Lactate Dehydrogenase Troponin T C-Reactive Protein NT-Pro-B Natriuret Pep Total Protein Albumin LDL Cholesterol Direct Vitamin B12 1823 H Crossmatch 11/10/21 11/11/21 11/11/21 17:53 00:55 04:28 WBC RBC Hgb Hct MCV MCH MCHC RDW Plt Count Seg Neuts % (Manual) Lymphocytes % (Manual) Seg Neutrophils # Man Lymphocytes # (Manual) Monocytes # (Manual) PT INR D-Dimer ABG pH ABG pO2 ABG HCO3 ABG O2 Saturation ABG Base Excess ABG Hemoglobin Oxyhemoglobin Sodium 149 H Potassium Chloride 112.2 H Carbon Dioxide BUN 34 H Glucose 148 H POC Glucose 140 H 145 H Lactic Acid Calcium 7.9 L Phosphorus Magnesium AST 53 H ALT 203 H Alkaline Phosphatase Lactate Dehydrogenase Troponin T C-Reactive Protein NT-Pro-B Natriuret Pep Total Protein 4.9 L Albumin 2.6 L LDL Cholesterol Direct Vitamin B12 Crossmatch 11/11/21 11/11/21 11/11/21 04:28 04:28 05:28 WBC 20.9 H RBC 3.47 L Hgb 7.5 L Hct 26.0 L MCV 75 L MCH 22 L MCHC 29 L RDW 21.6 H Plt Count 132 L Seg Neuts % (Manual) Lymphocytes % (Manual) Seg Neutrophils # Man Lymphocytes # (Manual) Monocytes # (Manual) PT INR D-Dimer 2655.00 H ABG pH ABG pO2 ABG HCO3 ABG O2 Saturation ABG Base Excess ABG Hemoglobin Oxyhemoglobin Sodium Potassium Chloride Carbon Dioxide BUN Glucose POC Glucose 154 H Lactic Acid Calcium Phosphorus Magnesium AST ALT Alkaline Phosphatase Lactate Dehydrogenase Troponin T C-Reactive Protein NT-Pro-B Natriuret Pep Total Protein Albumin LDL Cholesterol Direct Vitamin B12 Crossmatch 11/11/21 11/11/21 11/12/21 12:38 18:13 00:14 WBC RBC Hgb Hct MCV MCH MCHC RDW Plt Count Seg Neuts % (Manual) Lymphocytes % (Manual) Seg Neutrophils # Man Lymphocytes # (Manual) Monocytes # (Manual) PT INR D-Dimer ABG pH ABG pO2 ABG HCO3 ABG O2 Saturation ABG Base Excess ABG Hemoglobin Oxyhemoglobin Sodium Potassium Chloride Carbon Dioxide BUN Glucose POC Glucose 137 H 108 H 137 H Lactic Acid Calcium Phosphorus Magnesium AST ALT Alkaline Phosphatase Lactate Dehydrogenase Troponin T C-Reactive Protein NT-Pro-B Natriuret Pep Total Protein Albumin LDL Cholesterol Direct Vitamin B12 Crossmatch 11/12/21 11/12/21 11/12/21 05:40 06:24 11:12 WBC RBC Hgb Hct MCV MCH MCHC RDW Plt Count Seg Neuts % (Manual) Lymphocytes % (Manual) Seg Neutrophils # Man Lymphocytes # (Manual) Monocytes # (Manual) PT INR D-Dimer ABG pH 7.586 H ABG pO2 150.6 H ABG HCO3 27.2 H ABG O2 Saturation 99.1 H ABG Base Excess 5.2 H ABG Hemoglobin 7.5 L Oxyhemoglobin Sodium Potassium Chloride Carbon Dioxide BUN Glucose POC Glucose 132 H 140 H Lactic Acid Calcium Phosphorus Magnesium AST ALT Alkaline Phosphatase Lactate Dehydrogenase Troponin T C-Reactive Protein NT-Pro-B Natriuret Pep Total Protein Albumin LDL Cholesterol Direct Vitamin B12 Crossmatch 11/12/21 11/12/21 11/12/21 14:50 14:50 17:13 WBC 19.8 H RBC 3.27 L Hgb 7.1 L Hct 24.5 L MCV 75 L MCH 22 L MCHC 29 L RDW 22.3 H Plt Count Seg Neuts % (Manual) Lymphocytes % (Manual) Seg Neutrophils # Man Lymphocytes # (Manual) Monocytes # (Manual) PT INR D-Dimer ABG pH ABG pO2 ABG HCO3 ABG O2 Saturation ABG Base Excess ABG Hemoglobin Oxyhemoglobin Sodium 150 H Potassium 3.3 L Chloride 112.0 H Carbon Dioxide BUN 40 H Glucose 151 H POC Glucose 121 H Lactic Acid Calcium 7.4 L Phosphorus 1.70 L Magnesium 1.40 L AST ALT Alkaline Phosphatase Lactate Dehydrogenase Troponin T C-Reactive Protein NT-Pro-B Natriuret Pep Total Protein Albumin LDL Cholesterol Direct Vitamin B12 Crossmatch 11/12/21 11/13/21 11/13/21 23:19 05:34 06:30 WBC RBC Hgb Hct MCV MCH MCHC RDW Plt Count Seg Neuts % (Manual) Lymphocytes % (Manual) Seg Neutrophils # Man Lymphocytes # (Manual) Monocytes # (Manual) PT INR D-Dimer ABG pH ABG pO2 ABG HCO3 ABG O2 Saturation ABG Base Excess ABG Hemoglobin Oxyhemoglobin Sodium 149 H Potassium Chloride 60.0 L Carbon Dioxide BUN 40 H Glucose 146 H POC Glucose 113 H 132 H Lactic Acid Calcium 7.3 L Phosphorus Magnesium 2.40 H AST ALT 72 H Alkaline Phosphatase Lactate Dehydrogenase Troponin T C-Reactive Protein NT-Pro-B Natriuret Pep Total Protein 5.2 L Albumin 2.2 L LDL Cholesterol Direct Vitamin B12 Crossmatch 11/13/21 11/13/21 11/13/21 06:30 08:30 11:19 WBC 21.2 H RBC 3.12 L Hgb 6.8 L Hct 23.2 L MCV 74 L MCH 22 L MCHC 29 L RDW 22.2 H Plt Count 135 L Seg Neuts % (Manual) Lymphocytes % (Manual) Seg Neutrophils # Man Lymphocytes # (Manual) Monocytes # (Manual) PT INR D-Dimer ABG pH ABG pO2 ABG HCO3 ABG O2 Saturation ABG Base Excess ABG Hemoglobin Oxyhemoglobin Sodium Potassium Chloride Carbon Dioxide BUN Glucose POC Glucose 136 H Lactic Acid Calcium Phosphorus Magnesium AST ALT Alkaline Phosphatase Lactate Dehydrogenase Troponin T C-Reactive Protein NT-Pro-B Natriuret Pep Total Protein Albumin LDL Cholesterol Direct Vitamin B12 Crossmatch See Detail 11/13/21 11/14/21 11/14/21 18:21 00:01 04:46 WBC 20.0 H RBC 3.41 L Hgb 7.9 L Hct 26.8 L MCV MCH 23 L MCHC 29 L RDW 24.0 H Plt Count Seg Neuts % (Manual) Lymphocytes % (Manual) Seg Neutrophils # Man Lymphocytes # (Manual) Monocytes # (Manual) PT INR D-Dimer ABG pH ABG pO2 ABG HCO3 ABG O2 Saturation ABG Base Excess ABG Hemoglobin Oxyhemoglobin Sodium Potassium Chloride Carbon Dioxide BUN Glucose POC Glucose 149 H 141 H Lactic Acid Calcium Phosphorus Magnesium AST ALT Alkaline Phosphatase Lactate Dehydrogenase Troponin T C-Reactive Protein NT-Pro-B Natriuret Pep Total Protein Albumin LDL Cholesterol Direct Vitamin B12 Crossmatch 11/14/21 11/14/21 11/14/21 04:46 05:10 11:10 WBC RBC Hgb Hct MCV MCH MCHC RDW Plt Count Seg Neuts % (Manual) Lymphocytes % (Manual) Seg Neutrophils # Man Lymphocytes # (Manual) Monocytes # (Manual) PT INR D-Dimer ABG pH ABG pO2 ABG HCO3 ABG O2 Saturation ABG Base Excess ABG Hemoglobin Oxyhemoglobin Sodium 148 H Potassium Chloride 113.1 H Carbon Dioxide BUN 43 H Glucose 140 H POC Glucose 132 H 133 H Lactic Acid Calcium 7.5 L Phosphorus Magnesium AST ALT Alkaline Phosphatase Lactate Dehydrogenase Troponin T C-Reactive Protein NT-Pro-B Natriuret Pep Total Protein Albumin LDL Cholesterol Direct Vitamin B12 Crossmatch 11/14/21 11/14/21 11/14/21 16:14 17:48 23:23 WBC RBC Hgb Hct MCV MCH MCHC RDW Plt Count Seg Neuts % (Manual) Lymphocytes % (Manual) Seg Neutrophils # Man Lymphocytes # (Manual) Monocytes # (Manual) PT INR D-Dimer ABG pH ABG pO2 ABG HCO3 28.0 H ABG O2 Saturation ABG Base Excess 3.1 H ABG Hemoglobin 5.8 L Oxyhemoglobin 94.8 L Sodium Potassium Chloride Carbon Dioxide BUN Glucose POC Glucose 130 H 136 H Lactic Acid Calcium Phosphorus Magnesium AST ALT Alkaline Phosphatase Lactate Dehydrogenase Troponin T C-Reactive Protein NT-Pro-B Natriuret Pep Total Protein Albumin LDL Cholesterol Direct Vitamin B12 Crossmatch 11/15/21 11/15/21 11/15/21 05:20 05:50 05:50 WBC 19.9 H RBC 3.50 L Hgb 8.2 L Hct 27.9 L MCV MCH 23 L MCHC 29 L RDW 24.9 H Plt Count Seg Neuts % (Manual) Lymphocytes % (Manual) Seg Neutrophils # Man Lymphocytes # (Manual) Monocytes # (Manual) PT INR D-Dimer ABG pH ABG pO2 ABG HCO3 ABG O2 Saturation ABG Base Excess ABG Hemoglobin Oxyhemoglobin Sodium 149 H Potassium Chloride 112.0 H Carbon Dioxide BUN 48 H Glucose 152 H POC Glucose 137 H Lactic Acid Calcium 7.9 L Phosphorus Magnesium AST ALT Alkaline Phosphatase Lactate Dehydrogenase Troponin T C-Reactive Protein NT-Pro-B Natriuret Pep Total Protein Albumin LDL Cholesterol Direct Vitamin B12 Crossmatch 11/15/21 11/15/21 11/15/21 12:12 17:07 23:24 WBC RBC Hgb Hct MCV MCH MCHC RDW Plt Count Seg Neuts % (Manual) Lymphocytes % (Manual) Seg Neutrophils # Man Lymphocytes # (Manual) Monocytes # (Manual) PT INR D-Dimer ABG pH ABG pO2 ABG HCO3 ABG O2 Saturation ABG Base Excess ABG Hemoglobin Oxyhemoglobin Sodium Potassium Chloride Carbon Dioxide BUN Glucose POC Glucose 114 H 135 H 123 H Lactic Acid Calcium Phosphorus Magnesium AST ALT Alkaline Phosphatase Lactate Dehydrogenase Troponin T C-Reactive Protein NT-Pro-B Natriuret Pep Total Protein Albumin LDL Cholesterol Direct Vitamin B12 Crossmatch 11/16/21 11/16/21 11/16/21 05:21 10:00 10:00 WBC 21.7 H RBC 2.57 L Hgb 6.0 L Hct 20.2 L D MCV MCH 24 L MCHC RDW 26.3 H Plt Count Seg Neuts % (Manual) Lymphocytes % (Manual) Seg Neutrophils # Man Lymphocytes # (Manual) Monocytes # (Manual) PT INR D-Dimer ABG pH ABG pO2 ABG HCO3 ABG O2 Saturation ABG Base Excess ABG Hemoglobin Oxyhemoglobin Sodium 153 H Potassium Chloride 114.9 H Carbon Dioxide BUN 74 H Glucose 155 H POC Glucose 127 H Lactic Acid Calcium 8.1 L Phosphorus Magnesium AST ALT Alkaline Phosphatase Lactate Dehydrogenase Troponin T C-Reactive Protein NT-Pro-B Natriuret Pep Total Protein Albumin LDL Cholesterol Direct Vitamin B12 Crossmatch 11/16/21 11/16/21 11/16/21 11:34 14:00 15:25 WBC 17.2 H RBC 2.08 L Hgb 4.7 L* Hct 16.2 L* MCV 78 L MCH 23 L MCHC 29 L RDW 26.0 H Plt Count Seg Neuts % (Manual) 87.0 H Lymphocytes % (Manual) 8.0 L Seg Neutrophils # Man 15.0 H Lymphocytes # (Manual) Monocytes # (Manual) 0.9 H PT INR D-Dimer ABG pH ABG pO2 ABG HCO3 ABG O2 Saturation ABG Base Excess ABG Hemoglobin Oxyhemoglobin Sodium Potassium Chloride Carbon Dioxide BUN Glucose POC Glucose 131 H Lactic Acid Calcium Phosphorus Magnesium AST ALT Alkaline Phosphatase Lactate Dehydrogenase Troponin T C-Reactive Protein NT-Pro-B Natriuret Pep Total Protein Albumin LDL Cholesterol Direct Vitamin B12 Crossmatch See Detail 11/16/21 11/16/21 11/16/21 15:25 17:21 22:43 WBC RBC Hgb 8.6 L D Hct 27.7 L D MCV MCH MCHC RDW Plt Count Seg Neuts % (Manual) Lymphocytes % (Manual) Seg Neutrophils # Man Lymphocytes # (Manual) Monocytes # (Manual) PT INR D-Dimer ABG pH ABG pO2 ABG HCO3 ABG O2 Saturation ABG Base Excess ABG Hemoglobin Oxyhemoglobin Sodium 148 H Potassium Chloride 113.2 H Carbon Dioxide BUN 84 H Glucose 164 H POC Glucose 124 H Lactic Acid Calcium 7.6 L Phosphorus Magnesium AST ALT Alkaline Phosphatase Lactate Dehydrogenase Troponin T C-Reactive Protein NT-Pro-B Natriuret Pep Total Protein Albumin LDL Cholesterol Direct Vitamin B12 Crossmatch 11/16/21 11/17/21 11/17/21 23:07 05:33 05:56 WBC 25.1 H RBC 3.47 L Hgb 8.7 L Hct 28.5 L MCV MCH 25 L MCHC RDW 22.3 H Plt Count Seg Neuts % (Manual) Lymphocytes % (Manual) Seg Neutrophils # Man Lymphocytes # (Manual) Monocytes # (Manual) PT INR D-Dimer ABG pH ABG pO2 ABG HCO3 ABG O2 Saturation ABG Base Excess ABG Hemoglobin Oxyhemoglobin Sodium Potassium Chloride Carbon Dioxide BUN Glucose POC Glucose 128 H 133 H Lactic Acid Calcium Phosphorus Magnesium AST ALT Alkaline Phosphatase Lactate Dehydrogenase Troponin T C-Reactive Protein NT-Pro-B Natriuret Pep Total Protein Albumin LDL Cholesterol Direct Vitamin B12 Crossmatch 11/17/21 11/17/21 11/17/21 05:56 11:00 11:55 WBC RBC Hgb 8.3 L Hct 26.9 L MCV MCH MCHC RDW Plt Count Seg Neuts % (Manual) Lymphocytes % (Manual) Seg Neutrophils # Man Lymphocytes # (Manual) Monocytes # (Manual) PT INR D-Dimer ABG pH ABG pO2 ABG HCO3 ABG O2 Saturation ABG Base Excess ABG Hemoglobin Oxyhemoglobin Sodium 151 H Potassium Chloride 113.6 H Carbon Dioxide BUN 85 H Glucose 132 H POC Glucose 121 H Lactic Acid Calcium 7.8 L Phosphorus Magnesium AST ALT Alkaline Phosphatase Lactate Dehydrogenase Troponin T C-Reactive Protein NT-Pro-B Natriuret Pep Total Protein 5.1 L Albumin 2.2 L LDL Cholesterol Direct Vitamin B12 Crossmatch 11/17/21 11/17/21 11/18/21 18:04 18:55 00:26 WBC RBC Hgb 7.5 L 7.1 L Hct 24.8 L 23.6 L MCV MCH MCHC RDW Plt Count Seg Neuts % (Manual) Lymphocytes % (Manual) Seg Neutrophils # Man Lymphocytes # (Manual) Monocytes # (Manual) PT INR D-Dimer ABG pH ABG pO2 ABG HCO3 ABG O2 Saturation ABG Base Excess ABG Hemoglobin Oxyhemoglobin Sodium Potassium Chloride Carbon Dioxide BUN Glucose POC Glucose 144 H Lactic Acid Calcium Phosphorus Magnesium AST ALT Alkaline Phosphatase Lactate Dehydrogenase Troponin T C-Reactive Protein NT-Pro-B Natriuret Pep Total Protein Albumin LDL Cholesterol Direct Vitamin B12 Crossmatch 11/18/21 11/18/21 11/18/21 00:43 05:10 05:10 WBC 12.5 H RBC 2.39 L Hgb 6.1 L Hct 20.2 L MCV MCH 25 L MCHC RDW 23.2 H Plt Count Seg Neuts % (Manual) Lymphocytes % (Manual) Seg Neutrophils # Man Lymphocytes # (Manual) Monocytes # (Manual) PT INR D-Dimer ABG pH ABG pO2 ABG HCO3 ABG O2 Saturation ABG Base Excess ABG Hemoglobin Oxyhemoglobin Sodium 131 L D Potassium 2.9 L* D Chloride 97.8 L Carbon Dioxide BUN 58 H Glucose 665 H* POC Glucose 139 H Lactic Acid Calcium 7.0 L Phosphorus 2.20 L D Magnesium 1.50 L AST ALT Alkaline Phosphatase Lactate Dehydrogenase Troponin T C-Reactive Protein NT-Pro-B Natriuret Pep Total Protein Albumin LDL Cholesterol Direct Vitamin B12 Crossmatch 11/18/21 11/18/21 11/18/21 05:23 07:10 10:45 WBC RBC Hgb Hct MCV MCH MCHC RDW Plt Count Seg Neuts % (Manual) Lymphocytes % (Manual) Seg Neutrophils # Man Lymphocytes # (Manual) Monocytes # (Manual) PT INR D-Dimer ABG pH ABG pO2 ABG HCO3 ABG O2 Saturation ABG Base Excess ABG Hemoglobin Oxyhemoglobin Sodium 148 H D Potassium 3.1 L Chloride 111.9 H Carbon Dioxide BUN 63 H Glucose 141 H POC Glucose 124 H Lactic Acid Calcium 8.1 L D Phosphorus Magnesium AST ALT Alkaline Phosphatase Lactate Dehydrogenase Troponin T C-Reactive Protein NT-Pro-B Natriuret Pep Total Protein Albumin LDL Cholesterol Direct Vitamin B12 Crossmatch See Detail 11/18/21 11/19/21 11/19/21 11:57 00:19 04:55 WBC RBC 3.35 L Hgb 9.0 L 8.9 L Hct 28.3 L D 28.1 L MCV MCH 27 L MCHC RDW 20.3 H Plt Count Seg Neuts % (Manual) Lymphocytes % (Manual) Seg Neutrophils # Man Lymphocytes # (Manual) Monocytes # (Manual) PT INR D-Dimer ABG pH ABG pO2 ABG HCO3 ABG O2 Saturation ABG Base Excess ABG Hemoglobin Oxyhemoglobin Sodium Potassium Chloride Carbon Dioxide BUN Glucose POC Glucose 119 H Lactic Acid Calcium Phosphorus Magnesium AST ALT Alkaline Phosphatase Lactate Dehydrogenase Troponin T C-Reactive Protein NT-Pro-B Natriuret Pep Total Protein Albumin LDL Cholesterol Direct Vitamin B12 Crossmatch 11/19/21 11/19/21 04:55 05:42 WBC RBC Hgb Hct MCV MCH MCHC RDW Plt Count Seg Neuts % (Manual) Lymphocytes % (Manual) Seg Neutrophils # Man Lymphocytes # (Manual) Monocytes # (Manual) PT INR D-Dimer ABG pH ABG pO2 ABG HCO3 ABG O2 Saturation ABG Base Excess ABG Hemoglobin Oxyhemoglobin Sodium Potassium 3.5 L Chloride 108.6 H Carbon Dioxide BUN 47 H Glucose 207 H POC Glucose 63 L Lactic Acid Calcium 7.1 L Phosphorus Magnesium AST ALT Alkaline Phosphatase Lactate Dehydrogenase Troponin T C-Reactive Protein NT-Pro-B Natriuret Pep Total Protein Albumin LDL Cholesterol Direct Vitamin B12 Crossmatch Allied health notes reviewed: nursing
[2021-11-19] MEDS: fentaNYL DRIP Premix 2,000 MCG/100 ML BAG IV SCH (12:18)
[2021-11-19] MEDS ORDERED: POTASSIUM CHLORIDE 20 MEQ 20 MEQ/100 ML BAG IV SCH (13:00)
--- NOTE | 2021-11-19 15:15 | Post Anesthesia Evaluation ---
- Post Anesthesia Evaluation Patient Participated: No Airway Patent: Yes (intubated) Stable Respiratory Function: Yes Nausea/Vomiting: No Temp > 96.8F: Yes Pain Manageable: Yes (on fentanyl drip) Adequeate Hydration: Yes Anesthesia Complications: No Block Receding Appropriately: Not Applicable Patient on Ventilator: Yes
--- NOTE | 2021-11-19 16:38 | Progress Note ---
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 She was found to be in respiratory distress, initially treated with NRB. Pt was also noted to be septic with radiographic evidence of bilateral PNA Acute Respiratory Failure Septic Shock GBS Bacteremia Bilateral Pneumonia Bilateral Pleural Effusions Right pneumothorax and s/p right chest tube Acute HFrEF DVT Cardiomyopathy (EF reduced to 30-35% on echo this admission) NSVT Tn Elevation (?Type 2 NC in the setting of hypoxia & shock) Anemia GI bleed CAD s/p PCI (2004) CHB s/p PPM ([facility]) Hypothyroidism H/o HTN H/o DM Arthritis Echo reviewed - EF 30-35%, mild diastolic dysfunction, RV mildly dilated, moderate MR, moderate TR, moderate pulmonary HTN w/RVSP 49mmHg, no pericardial effusion, large left pleural effusion. Plan: Will continue to hold BB for soft BB Not on ASA d/t allergy. Patient S/p IVC filter Continue statin Pt seen in conjunction with Dr. Rizo who agrees with the assessment and plan of care. - Patient Problems (1) Acute anemia Current Visit: Yes Status: Acute (2) Acute respiratory failure with hypoxia Current Visit: Yes Status: Acute (3) Bilateral pneumonia Current Visit: Yes Status: Acute Subjective Date of service: 11/19/21 Principal diagnosis: Septic shock; AHRF; Anemia; Pneumonia; L. pleural effusion; HFrEF; Pulm HTN Interval history: Patient remained intubated Sinus 70s with PvCs on monitor Objective Vital Signs Temp Pulse Pulse Resp BP Pulse Ox 11/19/21 13:54 96.8 F L 11/19/21 13:00 69 15 129/58 98 11/19/21 12:30 76 20 122/55 98 11/19/21 12:00 73 72 13 102/43 99 11/19/21 11:30 64 14 101/44 95 11/19/21 11:00 64 16 117/50 96 11/19/21 10:30 70 18 117/50 97 11/19/21 10:00 71 14 110/50 100 11/19/21 09:30 68 20 110/50 99 11/19/21 09:00 67 15 110/47 97 11/19/21 08:30 70 21 114/51 97 02/12/09 08:00 67 64 19 102/44 95 02 07:40 66 102/44 95 11/19/21 07:30 65 18 105/47 94 11/19/21 07:18 97.7 F 0202 07:00 68 26 H 105/47 94 0202 06:30 62 17 105/43 96 11/19/21 06:00 66 19 109/51 02 05:30 64 15 109/51 97 0202 05:00 62 16 111/51 98 11/19/21 04:30 65 20 115/51 97 11/19/21 04:00 97.8 F 67 67 16 117/50 100 11/19/21 03:30 65 13 117/50 97 11/19/21 03:09 65 11/19/21 03:00 66 26 H 122/52 96 11/19/21 02:46 66 19 122/52 98 11/19/21 02:30 68 29 H 103/42 98 02 02:16 67 12 103/42 98 11/19/21 02:00 64 20 103/42 98 02 01:46 67 15 99/41 96 0202 01:30 64 15 105/41 95 11/19/21 01:16 65 19 105/41 97 11/19/21 01:00 64 17 105/41 96 11/19/21 00:46 67 16 98/43 96 11/19/21 00:30 65 24 98/43 96 11/19/21 00:15 70 15 112/42 96 11/19/21 00:00 98.4 F 65 69 19 98/43 95 02/22 23:45 70 13 114/47 97 02/01/22 23:30 67 14 113/47 99 02/22 23:18 70 11 L 115/51 98 020122 23:15 68 13 114/43 97 02/01/22 23:00 67 13 110/45 99 02//22 22:45 67 18 108/43 100 02//22 22:30 67 24 105/42 97 0222 22:15 67 22 106/42 97 02 22:00 67 20 103/41 95 11/18/21 21:45 67 17 108/42 98 11/18/21 21:30 70 11 L 112/47 97 11/18/21 21:15 68 14 107/46 99 11/18/21 21:00 68 17 107/47 99 11/18/21 20:48 69 108/47 99 11/18/21 20:45 68 20 101/48 97 11/18/21 20:30 65 16 99/44 99 11/18/21 20:15 67 23 99/44 98 11/18/21 20:00 98.0 F 68 14 105/48 99 11/18/21 19:45 65 17 99/44 98 11/18/21 19:44 83 19 100 11/18/21 19:40 68 11/18/21 19:30 66 22 101/44 98 11/18/21 19:15 68 17 106/47 97 11/18/21 19:00 67 16 96/42 97 11/18/21 18:45 70 18 104/46 97 11/18/21 18:30 70 17 100/45 96 11/18/21 18:15 74 18 102/46 97 11/18/21 18:00 73 18 97/47 95 11/18/21 17:46 74 25 H 119/56 89 11/18/21 17:30 69 16 100/41 92 11/18/21 17:16 69 18 105/47 92 11/18/21 17:00 70 16 108/44 92 11/18/21 16:46 69 18 101/43 90 - Physical Examination General: Other (intubated) HEENT: Positive: Normocephaly Neck: Positive: neck supple, trachea midline Cardiac: Positive: Reg Rate and Rhythm Lungs: Positive: Ventilated Respirations Neuro: Positive: Other (intubated) Abdomen: Positive: Soft Skin: Negative: Rash, Wound Musculoskeletal: No Fluid Collection Extremities: Present: lower extr. pulses, edema - Labs and Meds CBC 11/19/21 11/19/21 Range/Units 00:19 04:55 WBC 10.3 (4.5-11.0) K/mm3 RBC 3.35 L (3.65-5.03) M/mm3 Hgb 9.0 L 8.9 L (10.1-14.3) gm/dl Hct 28.3 L D 28.1 L (30.3-42.9) % Plt Count 157 (140-440) K/mm3 Comprehensive Metabolic Panel 11/19/21 Range/Units 04:55 Sodium 142 (137-145) mmol/L Potassium 3.5 L (3.6-5.0) mmol/L Chloride 108.6 H (98-107) mmol/L Carbon Dioxide 23 (22-30) mmol/L BUN 47 H (7-17) mg/dL Creatinine 0.8 (0.6-1.2) mg/dL Glucose 207 H (65-100) mg/dL Calcium 7.1 L (8.4-10.2) mg/dL - Imaging and Cardiology EKG: report reviewed, image reviewed Stress echo: report reviewed Echo: report reviewed Cardiac cath: report reviewed - Telemetry EKG Rhythm: Sinus Rhythm - EKG Sinus rhythms and dysrhythmias: sinus rhythm, sinus tachycardia Ventricular dysrhythmias: ventricular premature com - Allied health notes Allied health notes reviewed: nursing
--- NOTE | 2021-11-19 16:49 | Progress Note ---
Assessment and Plan Cultures: SARS CoV2 PCR: negative 11/03/2021 blood culture: Group B streptococcus 11/04/2021 blood culture: no growth 11/11/2021 blood culture: No growth A/P: 81-year-old female with diabetes mellitus, hypertension, arthritis was admitted with shortness of breath. She was also having fever: #Severe sepsis with shock, secondary to bilateral pneumonia: likely from Group B Strep. COVID-19 negative #Group B Strep bacteremia: Likely secondary to above, no other source identified, other possibility is mild lower extremity cellulitis. Does have indwelling cardiac device, per patient it is a pacemaker. TTE showed no valvular or lead vegetations #Acute hypoxic respiratory failure: Secondary to above. Intubated, on the vent. #Acute DVT: unable to anticoagulate Recs: -Stop cefepime after day 8 today. -overall guarded prognosis Mahogany Montes MD [facility] O: [phone] F: [phone] Subjective Date of service: 11/19/21 Principal diagnosis: Septic shock; AHRF; Anemia; Pneumonia; L. pleural effusion; HFrEF; Pulm HTN Interval history: Afebrile, normal white count. Objective - Exam Narrative Exam: Physical exam deferred to reduce risk of transmission of COVID-19. Please refer to primary team's note. - Constitutional Vitals: Vital Signs Temp Pulse Resp BP Pulse Ox 96.8 F L 65 11 L 98/48 99 11/19/21 13:54 11/19/21 16:30 11/19/21 16:30 11/19/21 16:30 11/19/21 16:30 Temperature -Last 24 Hours Temperature 96.8 F Temperature 97.7 F Temperature 97.8 F Temperature 98.4 F Temperature 98.0 F - Labs CBC & Chem 7: 11/19/21 04:55 11/19/21 04:55 Labs: Abnormal lab results 11/19/21 11/19/21 11/19/21 Range/Units 00:19 04:55 04:55 RBC 3.35 L (3.65-5.03) M/mm3 Hgb 9.0 L 8.9 L (10.1-14.3) gm/dl Hct 28.3 L D 28.1 L (30.3-42.9) % MCH 27 L (28-32) pg RDW 20.3 H (13.2-15.2) % Potassium 3.5 L (3.6-5.0) mmol/L Chloride 108.6 H (98-107) mmol/L BUN 47 H (7-17) mg/dL Glucose 207 H (65-100) mg/dL POC Glucose (70-105) mg/dL Calcium 7.1 L (8.4-10.2) mg/dL 11/19/21 Range/Units 05:42 RBC (3.65-5.03) M/mm3 Hgb (10.1-14.3) gm/dl Hct (30.3-42.9) % MCH (28-32) pg RDW (13.2-15.2) % Potassium (3.6-5.0) mmol/L Chloride (98-107) mmol/L BUN (7-17) mg/dL Glucose (65-100) mg/dL POC Glucose 63 L (70-105) mg/dL Calcium (8.4-10.2) mg/dL
--- NOTE | 2021-11-19 17:48 | Gastroenterology Progress Note ---
Assessment and Plan Continue PPI drip for one more day Trend hemoglobin closely Avoid blood thinners cont Carafate 1 g p.o. 3 times daily If patient rebleeds please consult IR for possible intervention, as no further GI interventions available GI will sign off - Patient Problems (1) Anemia Current Visit: Yes Status: Acute (2) Occult blood positive stool Current Visit: Yes Status: Acute Subjective Date of service: 11/19/21 (patient seen around 7:45AM) Principal diagnosis: Septic shock; AHRF; Anemia; Pneumonia; L. pleural effusion; HFrEF; Pulm HTN Interval history: hgb stable s/p transfusion and no overt bleeding per nurse, patient cannot provide history EGD 11/18 FINDINGS: * No gross lesions in the 2nd portion of the duodenum * Large cratered ulcer in the posterior duodenal bulb about 2 cm in diameter. Visible vessel present. Mild active oozing from the ulcer bed. A total of 3 injections were performed around the ulcer for a total of 2.5 cc of dilute epinephrine and hemostasis was obtained. However, because location of the ulcer could not inject circumferentially around the ulcer only able to inject around 60% of the circumference * Mostly healed clean-based ulcer in the anterior duodenal bulb with surrounding edema and erythema, no high risk stigmata * Mild to moderate atrophic gastritis throughout the entire stomach. Scattered erythema. No active bleeding * GE junction located approximately 35 cm from incisors * 3 cm hiatal hernia * 1 cm area of nodularity at the GE junction concerning for dysplasia, cold forceps used to obtain biopsies * Remainder exam unremarkable Objective - Constitutional Vitals: Temp Pulse Resp BP Pulse Ox 96.8 F L 67 13 104/51 98 11/19/21 13:54 11/19/21 17:00 11/19/21 17:00 11/19/21 17:00 11/19/21 17:00 General appearance: other (intubated) - EENT Eyes: EOM intact - Respiratory Respiratory effort: other (intubated) - Gastrointestinal General gastrointestinal: Present: soft - Labs CBC & Chem 7: 11/19/21 04:55 11/19/21 04:55 Labs: Laboratory Results - last 24 hr 11/18/21 11/19/21 11/19/21 17:51 00:09 00:19 WBC RBC Hgb 9.0 L Hct 28.3 L D MCV MCH MCHC RDW Plt Count Sodium Potassium Chloride Carbon Dioxide Anion Gap BUN Creatinine Estimated GFR BUN/Creatinine Ratio Glucose POC Glucose 98 78 Calcium Phosphorus Magnesium 11/19/21 11/19/21 11/19/21 04:55 04:55 05:42 WBC 10.3 RBC 3.35 L Hgb 8.9 L Hct 28.1 L MCV 84 MCH 27 L MCHC 32 RDW 20.3 H Plt Count 157 Sodium 142 Potassium 3.5 L Chloride 108.6 H Carbon Dioxide 23 Anion Gap 14 BUN 47 H Creatinine 0.8 Estimated GFR > 60 BUN/Creatinine Ratio 59 Glucose 207 H POC Glucose 63 L Calcium 7.1 L Phosphorus 3.80 D Magnesium 2.30 11/19/21 11/19/21 11/19/21 06:15 08:33 11:50 WBC RBC Hgb Hct MCV MCH MCHC RDW Plt Count Sodium Potassium Chloride Carbon Dioxide Anion Gap BUN Creatinine Estimated GFR BUN/Creatinine Ratio Glucose POC Glucose 77 99 87 Calcium Phosphorus Magnesium
[2021-11-19] MEDS: PRAVASTATIN 20 MG TAB PO SCH (22:54)
[2021-11-20] MEDS: PANTOPRAZOLE 80 MG in SODIUM CHLORIDE 0.9% 100 ML IV SCH (01:34)
[2021-11-20 01:50] LABS: Hematocrit 28.6 % (30.3-42.9)
[2021-11-20] MEDS: fentaNYL 100 MCG/2 ML INJ IV PRN ×2 (02:43→07:05)
[2021-11-20] MEDS: LEVOTHYROXINE 125 MCG TAB PO SCH (05:29)
[2021-11-20 06:34] LABS: Hematocrit 28.8 % (30.3-42.9); Hemoglobin 9.1 gm/dl (10.1-14.3); Mean Corpuscular HGB Conc 31 % (30-34); Mean Corpuscular Volume 85 fl (79-97); Platelet Count 172 K/mm3 (140-440)
[2021-11-20 06:36] LABS: Red Cell Distribution Width 20.7 % (13.2-15.2)
[2021-11-20] MEDS: INSULIN LISPRO 100 UNIT/ML SUB-Q SCH ×4 (06:43→18:30)
[2021-11-20] MEDS: DEXTROSE 5% IN WATER 1,000 ML IV SCH ×2 (06:44→21:00)
[2021-11-20 06:51] LABS: BUN/Creatinine Ratio 46; Blood Urea Nitrogen 37 mg/dL (7-17); Calcium 7.5 mg/dL (8.4-10.2); Hemolysis Index 2
[2021-11-20] MEDS: HYDROcodone/ACETAMINOPHEN 10-325MG TAB PO SCH ×3 (08:06→13:06)
[2021-11-20] MEDS: SUCRALFATE 1 GM/10 ML ORAL LIQD PO SCH ×4 (09:07→21:09)
[2021-11-20] MEDS: fentaNYL 25 MCG/HR PATCH 72HR TD SCH (09:07)
[2021-11-20] MEDS: DOCUSATE SODIUM 100 MG/10 ML ORAL LIQD PO SCH ×2 (09:08→21:09)
[2021-11-20] MEDS: POTASSIUM CHLORIDE 20 MEQ PACKET FEEDTUBE SCH ×2 (09:08→09:51)
[2021-11-20] MEDS: SENNOSIDES ORAL LIQD 8.8 MG/5 ML ORAL LIQD PO SCH ×2 (09:08→21:10)
[2021-11-20] MEDS: busPIRone 5 MG TAB PO SCH ×3 (09:08→21:09)
[2021-11-20] MEDS: POLYETHYLENE GLYCOL 3350 17 GM POWDER PO SCH (09:08)
--- NOTE | 2021-11-20 10:35 | Progress Note ---
<LONNIE MAURICE - Last Filed: 11/20/21 15:37> Assessment and Plan Assessment and plan: This is a 81-year-old female with known history of diabetes mellitus, hypertension, PPM, and arthritis admitted for sepsis and acute hypoxia respiratory failure 2/2 bilateral pneumonia requiring intubation and ventilatory support Hospital Course to date: 11/04/2021: Empiric therapy with iv levaquin/vancomycin. COVID PCR pending. Will consult ID. PCCM consulted, will follow recs. Hypotensive this AM, ordered bolus and fluids at 150 cc/hr. May require pressor support if bp does not improve. 11/05/2021: GBS on bcx +, currently on rocephin IV. Currently on bipap due to respiratory distress overnight. Worsening BL opacities on CXR. May be volume overload vs pneumonia. Unfortunately bp too low for lasix at this point. WIll continue levophed and bipap. Once able to tolerate, may do trial of albumin/lasi x. Call attempt made to Niraj, no response. Will try again tomorrow to update. 11/06/2021: Decompensated overnight requiring intubation. CXR shows worsening interstitial infiltrates. Currenlty on dopamine, levophed, vasopressin. PICC line ordered. Advised RN to place gamble for I/O monitoring. Would benefit from diuresis but very volume overloaded. Prognosis guarded 11/08: Off sedation this am, remains unresponsive only grimace to pain. Hold all sedatives agents for now, patient is off pressors this am. Hypernatremia from today's lab- D5W X1bag, and low K repleted, repeat lab in the am. Severe constipation also noted from KUB, BR added. 11/09: Sudden SPO2 drop in the 60s this am. Patient was manually bagged and deep suctioned. Patient is currently stable on the vent, repeat CXR with no significant change. D/w CCM Mucomyst and brochodilator added. Patient mentation is unchanged, continue to hold off on sedative agents. Neurology consulted. 11/10: Acute DVT noted on bilateral lower extremity Doppler ultrasound therefore she was started on Lovenox treatment dose. Failed SBT. Hypernatremia and hyperchloremia noted, free water flush adjusted. 11/11: Patient noted to be febrile with increasing of the cytosis, UA/BC sent and CXR ordered. ID escalated antibiotics to cefepime. CXR demonstrated mucous plug, bedside bronchoscopy was performed and O ETT was changed over bougie from 6 cm to 7.5. Patient was noted to have a pneumothorax postprocedure and chest tube was placed. Family updated by [facility]. Free water flush increased and will add Jaswant supplementation. 11/12: Patient not noted to follow commands, hypernatremia worsen/persist, increasing free water flush, potassium and magnesium and phosphorus repleted. Hemoglobin noted to be 7.1/24.5 from 7.03/12 yesterday. We will continue to trend and monitor. Vent changes per [facility]. Repeat CXR showed no residual pneumo thorax. Consider waterseal tomorrow. Given persistent leukocytosis antibiotics escalated to cefepime per ID. 11/13: Remains on cefepime and vancomycin, vent changes per [facility]. Anemia noted and given 1 unit PRBC. And beta-charleen held in setting of Levophed drip infusing. Remains on fentanyl drip. 11/14: Patient put on CPAP trial by [facility], will continue chest tube until after extubation. Will rest on assist control. CT brain was cancelled by [employer] and reordered. 11/15: Patient removed chest tube overnight. Will obtain cxr. remains on low dose levo. CTH completed with no acute findings. RT to place on CPAP. 11/16: Hypernatremia/hyperchloremia noted on the increase of day water flushes. Anemia noted and ordered PRBC. asked RT to place on cpap but not done yet 11/17: Patient remains on the vent, awake and following commands. H&H stable s/p 2units PRBCs. GI on consult, no intervention at this time. Will continue protonix gtt and serial H&H Q6hrs. Keep patient NPO for now, D5w added for hypernatremia and NPO status. Plan for IVC filter placement today by Vascular. 11/18: Patient is s/p IVC filter. H&H continue to trend down, hbg 6.1 this am, 1 unit of PRBCs ordered. Plan for possible EGD today by GI. Keep patient NPO, continue PPI drip and serial H&H Q6hrs. Electrolytes repleted, repeat lab in the am 11/19: S/p EGD- larger duodenal ulcer noted, see operative note. GI recommendat ions noted also noted. H&H stable this am. Keep patient on protonix gtt for now. Will keep patient NPO, continue IVF and serial H&H for now. Electrolytes repleted, repeat labs in the am 2/3: Very agitated and restless this am, fentanyl gtt resumed. Patient remains on protonix gtt, H&H remains stable. Will switch protonix gtt to IV BID, continue carafate and okay to resume meds at this time. Will F/u with GI to see if TF can be resumed. Gamble was reinserted overnight for retention. Electrolytes repleted, repeat in the am. Plan for possible PST today for possible extubation per [facility]. Assessment and Plan #Septic Shock POA #Bilateral Pneumonia #Bacteremia - Presented with fevers, leukocytosis, and hypotension - COVID PCR negative - 11/04 Bcult with 3/4 group B strep bacteremia - Repeat Bculture NGTD - 11/04 2D Echo with no evidence of vegetation - ID on consult, appreciate recommendations - Patient completed IV Abx course - F/u on culture data - Trend CBC #Acute Hypoxic Respiratory Failure 11/19 #Right Pneumothorax #Bilateral Pleural Effusion #Bilateral Pneumonia - COVID PCR negative - CXR shows Bilateral opacities, may be volume overloaded - [facility] consulted, appreciate recommendations - Intubated on 11/06, ETT exchanged on 11/11 - 11/11 Bronchoscopy--Complicated by spontaneous pneumothorax - 11/11 S/p chest tube placement for right pneumothorax, removed by patient on 11/15 - 11/15 Repeat CXR with resolve Pneumo - This am Vent Setting:A/C-30%,6,14,400 - Today ABG pending - Plan for possible PST today for possible extubation per CCM - Continue Nebs treatment - VAP bundle addressed - Aspiration precaution HOB above 30 - ABG and CXR per CCM - Continue SPO2 monitoring for SPO2 goal above 92% #CHF- EF 30-35% with PPM #Hypotension-Resolved #Septic Kristian - Was on 3 pressors initially - BP remains stable - SR on the monitor, HR 70-90s - 11/04 Echo-EF 30-35% - Cardiology on consult - Continue beta-charleen - Not on aspirin due to allergy - Statins resumed - Continue blood pressure monitor per protocol - Maintain MAP above 65 #Acute Blood Loss #Acute GI Bleed #Acute Microcytic Anemia - Report of melena &black tarry stools - s/p a total of 5units of PRBCs since admit - H&H remains stable post EDG - GI on consult - 11/18 EGD- Large cratered ulcer in the posterior duodenal bulb about 2 cm in diameter. Visible vessel present. Mild active oozing from the ulcer bed. A total of 3 injections were performed around the ulcer for a total of 2.5 cc of dilute epinephrine and hemostasis was obtained.--> See full report - Protonix gtt switched to IV push BID - Continue Carafate - Okay to administer meds at this time, will f/u with GI on resuming TF - Continue to trend CBC - Transfuse for H&H less than 7 - Hold AC for now #Hypokalemia #Hypernatremia-improved - K repleted - Continue D5W for now - Strict intake and output - Continue to monitor and replace electrolytes as needed - Trend BMP,mag, & phosp #Urinary Retention - Gamble reinserted on 11/19 for retention - Keep gamble for now, will reassess in 3 to 5days #Acute DVT in RLE - BLE doppler + Acute DVT in the right external iliac vein, common femoral vein, and superior aspect of femoral vein - Was on Therapeutic Lovenox- held to due GI Bleed - 11/17 s/p IVC filter placement by Vascular Surg #Agitation #Acute Encephalopathy-Resolved - Awake and agitated this am, following commands - Fentanyl gtt resumed, titrate for RASS goal of 0 to -1 - CT head noted - Neurology consulted - Resumed Buspar #Transaminitis/Shock Liver - Probably due to bacteria/spetic shock - Continue to Trend LFTs The high probability of a clinically significant, sudden or life threatening deterioration of the [multi] system(s) required my full and direct attention, intervention and personal management. The aggregate critical care time was [60] minutes. This time is in addition to time spent performing reported procedures but includes the following: [x] Data Review and interpretation [x] Patient assessment and monitoring of vital signs [x] Documentation [x] Medication orders and management Disposition Plan: ICU Total Time Spent with Patient (Minutes): 60 History Interval history: Patient seen and examined at the bedside. Patient remains on the vent. Appears very agitated and restless this am, fentanyl gtt resumed. Gamble was also re- inserted overnight due to retention. Remains on protonix gtt, no s/s of any active bleeding overnight Hospitalist Physical - Constitutional Vitals: Temp Pulse Resp BP Pulse Ox 97.8 F 75 13 145/72 98 11/20/21 04:00 11/20/21 10:00 11/20/21 10:00 11/20/21 10:00 11/20/21 10:00 General appearance: Present: mild distress, other (On the vent) - EENT Eyes: Present: PERRL, EOM intact ENT: hearing intact - Neck Neck: Present: normal ROM - Respiratory Respiratory effort: normal Respiratory: bilateral: rhonchi - Cardiovascular Rhythm: regular Heart Sounds: Present: S1 & S2 - Extremities Extremities: no ischemia, pulses intact, pulses symmetrical Extremity abnormal: edema - Peripheral Assessment Generalized Edema Type: Non-pitting Edema Degree: 2+ Capillary Refill: < 3 seconds Skin Temperature: Warm Peripheral Pulses: within normal limits - Abdominal General gastrointestinal: soft, non-distended, normal bowel sounds - Integumentary Integumentary: Present: warm, dry - Psychiatric Psychiatric: agitated - Neurologic Neurologic: moves all extremities - Allied Health Allied health notes reviewed: nursing HEART Score - HEART Score Troponin: Troponin T 0.033 ng/mL (0.00-0.029) H 11/05/21 06:11 Results - Labs CBC & Chem 7: 11/20/21 05:40 11/20/21 05:40 Labs: Laboratory Last Values WBC 8.2 K/mm3 (4.5-11.0) 11/20/21 05:40 RBC 3.40 M/mm3 (3.65-5.03) L 11/20/21 05:40 Hgb 9.1 gm/dl (10.1-14.3) L 11/20/21 05:40 Hct 28.8 % (30.3-42.9) L 11/20/21 05:40 MCV 85 fl (79-97) 11/20/21 05:40 MCH 27 pg (28-32) L 11/20/21 05:40 MCHC 31 % (30-34) 11/20/21 05:40 RDW 20.7 % (13.2-15.2) H 11/20/21 05:40 Plt Count 172 K/mm3 (140-440) 11/20/21 05:40 Add Manual Diff Complete 11/16/21 15:25 Total Counted 100 11/16/21 15:25 Seg Neutrophils % Blanket Winder Helper 11/06/21 15:50 Seg Neuts % (Manual) 87.0 % (40.0-70.0) H 11/16/21 15:25 Band Neutrophils % 0 % 11/16/21 15:25 Lymphocytes % (Manual) 8.0 % (13.4-35.0) L 11/16/21 15:25 Reactive Lymphs % (Man) 0 % 11/16/21 15:25 Monocytes % (Manual) 5.0 % (0.0-7.3) 11/16/21 15:25 Eosinophils % (Manual) 0 % (0.0-4.3) 11/16/21 15:25 Basophils % (Manual) 0 % (0.0-1.8) 11/16/21 15:25 Metamyelocytes % 0 % 11/16/21 15:25 Myelocytes % 0 % 11/16/21 15:25 Promyelocytes % 0 % 11/16/21 15:25 Blast Cells % 0 % 11/16/21 15:25 Nucleated RBC % Not Reportable 11/16/21 15:25 Seg Neutrophils # Man 15.0 K/mm3 (1.8-7.7) H 11/16/21 15:25 Band Neutrophils # 0.0 K/mm3 11/16/21 15:25 Lymphocytes # (Manual) 1.4 K/mm3 (1.2-5.4) 11/16/21 15:25 Abs React Lymphs (Man) 0.0 K/mm3 11/16/21 15:25 Monocytes # (Manual) 0.9 K/mm3 (0.0-0.8) H 11/16/21 15:25 Eosinophils # (Manual) 0.0 K/mm3 (0.0-0.4) 11/16/21 15:25 Basophils # (Manual) 0.0 K/mm3 (0.0-0.1) 11/16/21 15:25 Metamyelocytes # 0.0 K/mm3 11/16/21 15:25 Myelocytes # 0.0 K/mm3 11/16/21 15:25 Promyelocytes # 0.0 K/mm3 11/16/21 15:25 Blast Cells # 0.0 K/mm3 11/16/21 15:25 WBC Morphology Not Reportable 11/16/21 15:25 Hypersegmented Neuts Not Reportable 11/16/21 15:25 Hyposegmented Neuts Not Reportable 11/16/21 15:25 Hypogranular Neuts Not Reportable 11/16/21 15:25 Smudge Cells Not Reportable 11/16/21 15:25 Toxic Granulation Not Reportable 11/16/21 15:25 Toxic Vacuolation Not Reportable 11/16/21 15:25 Dohle Bodies Not Reportable 11/16/21 15:25 Pelger-Huet Anomaly Not Reportable 11/16/21 15:25 Irina Rods Not Reportable 11/16/21 15:25 Platelet Estimate Consistent w auto 11/16/21 15:25 Clumped Platelets Rare 11/16/21 15:25 Plt Clumps, EDTA Not Reportable 11/16/21 15:25 Large Platelets Not Reportable 11/16/21 15:25 Giant Platelets Not Reportable 11/16/21 15:25 Platelet Satelliting Not Reportable 11/16/21 15:25 Plt Morphology Comment Not Reportable 11/16/21 15:25 RBC Morphology Not Reportable 11/16/21 15:25 Dimorphic RBCs Not Reportable 11/16/21 15:25 Polychromasia Not Reportable 11/16/21 15:25 Hypochromasia 2+ 11/16/21 15:25 Poikilocytosis Not Reportable 11/16/21 15:25 Anisocytosis 2+ 11/16/21 15:25 Microcytosis Not Reportable 11/16/21 15:25 Macrocytosis Not Reportable 11/16/21 15:25 Spherocytes Not Reportable 11/16/21 15:25 Pappenheimer Bodies Not Reportable 11/16/21 15:25 Sickle Cells Not Reportable 11/16/21 15:25 Target Cells 2+ 11/16/21 15:25 Tear Drop Cells Not Reportable 11/16/21 15:25 Ovalocytes Not Reportable 11/16/21 15:25 Helmet Cells Not Reportable 11/16/21 15:25 [place] Bodies Not Reportable 11/16/21 15:25 [place] Rings Not Reportable 11/16/21 15:25 [place] Cells Not Reportable 11/16/21 15:25 Bite Cells Not Reportable 11/16/21 15:25 Crenated Cell Not Reportable 11/16/21 15:25 Elliptocytes Not Reportable 11/16/21 15:25 Acanthocytes (Spur) Not Reportable 11/16/21 15:25 Rouleaux Not Reportable 11/16/21 15:25 Hemoglobin C Crystals Not Reportable 11/16/21 15:25 Schistocytes Not Reportable 11/16/21 15:25 Malaria parasites Not Reportable 11/16/21 15:25 Godfrey Bodies Not Reportable 11/16/21 15:25 Hem Pathologist Commnt No 11/16/21 15:25 PT 18.6 Sec. (12.2-14.9) H 11/03/21 22:32 INR 1.40 (0.87-1.13) H 11/03/21 22:32 APTT 28.9 Sec. (24.2-36.6) 11/03/21 22:32 D-Dimer 2655.00 ng/mlDDU (0-234) H 11/11/21 04:28 ABG pH 7.407 pH Units (7.350-7.450) 11/14/21 16:14 ABG pCO2 45.6 mm Hg 11/14/21 16:14 ABG pO2 80.6 mm Hg (80.0-90.0) 11/14/21 16:14 ABG HCO3 28.0 mmol/L (20.0-26.0) H 11/14/21 16:14 ABG O2 Saturation 97.0 % (95.0-99.0) 11/14/21 16:14 ABG O2 Content 7.8 (0.0-44) 11/14/21 16:14 ABG Base Excess 3.1 mmol/L (-2.0-3.0) H 11/14/21 16:14 ABG Hemoglobin 5.8 gm/dl (12.0-16.0) L 11/14/21 16:14 ABG Carboxyhemoglobin 2.0 % (0.0-5.0) 11/14/21 16:14 ABG Methemoglobin 0.3 % (0.0-1.5) 11/14/21 16:14 Oxyhemoglobin 94.8 % (95.0-99.0) L 11/14/21 16:14 FiO2 35 % 11/14/21 16:14 Sodium 141 mmol/L (137-145) 11/20/21 05:40 Potassium 3.5 mmol/L (3.6-5.0) L 11/20/21 05:40 Chloride 108.9 mmol/L (98-107) H 11/20/21 05:40 Carbon Dioxide 23 mmol/L (22-30) 11/20/21 05:40 Anion Gap 13 mmol/L 11/20/21 05:40 BUN 37 mg/dL (7-17) H 11/20/21 05:40 Creatinine 0.8 mg/dL (0.6-1.2) 11/20/21 05:40 Estimated GFR > 60 ml/min 11/20/21 05:40 BUN/Creatinine Ratio 46 % 11/20/21 05:40 Glucose 117 mg/dL (65-100) H 11/20/21 05:40 POC Glucose 88 mg/dL (70-105) 11/20/21 06:29 Lactic Acid 3.70 mmol/L (0.7-2.0) H* 11/03/21 22:32 Calcium 7.5 mg/dL (8.4-10.2) L 11/20/21 05:40 Phosphorus 3.80 mg/dL (2.5-4.5) D 11/19/21 04:55 Magnesium 2.30 mg/dL (1.7-2.3) 11/19/21 04:55 Ferritin 52.6 ng/mL (10.0-200.0) 11/05/21 06:11 Total Bilirubin 0.50 mg/dL (0.1-1.2) 11/17/21 05:56 Direct Bilirubin < 0.2 mg/dL (0-0.2) 11/11/21 04:28 Indirect Bilirubin 0.1 mg/dL 11/11/21 04:28 AST 36 units/L (5-40) 11/17/21 05:56 ALT 47 units/L (7-56) 11/17/21 05:56 Alkaline Phosphatase 107 units/L (35-129) 11/17/21 05:56 Ammonia 42.0 umol/L (25-60) 11/10/21 14:08 Lactate Dehydrogenase 187 units/L (91-180) H 11/05/21 06:11 Troponin T 0.033 ng/mL (0.00-0.029) H 11/05/21 06:11 C-Reactive Protein 22.20 mg/dL (0.00-1.30) H 11/05/21 06:11 NT-Pro-B Natriuret Pep 7895 pg/mL (0-900) H 11/03/21 22:32 Total Protein 5.1 g/dL (6.3-8.2) L 11/17/21 05:56 Albumin 2.2 g/dL (3.9-5) L 11/17/21 05:56 Albumin/Globulin Ratio 0.8 % 11/17/21 05:56 Triglycerides 66 mg/dL (2-149) 11/03/21 22:32 Cholesterol 80 mg/dL (50-199) 11/03/21 22:32 LDL Cholesterol Direct 34 mg/dL (50-130) L 11/03/21 22:32 HDL Cholesterol 42 mg/dL (40-59) 11/03/21 22:32 Cholesterol/HDL Ratio 1.90 % 11/03/21 22:32 Vitamin B12 1823 pg/mL (211-911) H 11/10/21 14:08 TSH 1.510 mlU/mL (0.270-4.200) 11/10/21 14:08 Urine Color Yellow (Yellow) 11/11/21 09:00 Urine Turbidity Slightly-cloudy (Clear) 11/11/21 09:00 Urine pH 5.0 (5.0-7.0) 11/11/21 09:00 Ur Specific [place] 1.009 (1.003-1.030) 11/11/21 09:00 Urine Protein <15 mg/dl mg/dL (Negative) 11/11/21 09:00 Urine Glucose (UA) Neg mg/dL (Negative) 11/11/21 09:00 Urine Ketones Neg mg/dL (Negative) 11/11/21 09:00 Urine Blood Mod (Negative) 11/11/21 09:00 Urine Nitrite Neg (Negative) 11/11/21 09:00 Urine Bilirubin Neg (Negative) 11/11/21 09:00 Urine Urobilinogen < 2.0 mg/dL (<2.0) 11/11/21 09:00 Ur Leukocyte Esterase Neg (Negative) 11/11/21 09:00 Urine WBC (Auto) < 1.0 /HPF (0.0-6.0) 11/11/21 09:00 Urine RBC (Auto) < 1.0 /HPF (0.0-6.0) 11/11/21 09:00 Coronavirus (PCR) Negative (Negative) 11/10/21 08:30 Blood Type O POSITIVE 11/18/21 10:45 Antibody Screen Negative 11/18/21 10:45 Crossmatch See Detail 11/18/21 10:45 Gamble/IV: Voiding Method Incontinent Active Medications - Current Medications Current Medications: Generic Name Dose Route Start Last Admin Trade Name Freq PRN Reason Stop Dose Admin Acetaminophen 650 mg 11/04/21 02:03 11/16/21 15:43 Acetaminophen 325 Mg Tab PO 650 mg Q6H PRN Administration Pain MILD(1-3)/Fever >100.5/RODRIGUEZ Hydrocodone Bitart/Acetaminophen 1 each 11/15/21 20:00 11/20/21 09:52 Hydrocodone/Acetaminophen 10-325mg Tab PO 11/20/21 19:59 1 each TID YOSSI Administration Lipase/Protease/Amylase 1 each 11/08/21 11:09 Lipase 10,500/Protease 25,000/Amylase 43,750 (Units) Dr Lema FEEDTUBE PRN PRN For Clogged Feeding Tube Buspirone HCl 7.5 mg 11/17/21 22:00 11/20/21 09:52 Buspirone 5 Mg Tab PO 7.5 mg BID YOSSI Administration Dextrose 0 ml 11/10/21 10:52 11/19/21 18:25 Dextrose 10% *Hypoglycemia IV 50 ml PRN PRN Administration Hypoglycemia Docusate Sodium 100 mg 11/08/21 12:00 11/20/21 09:08 Docusate Sodium 100 Mg/10 Ml Oral Liqd PO Not Given BID YOSSI Fentanyl 1 applic 11/17/21 13:00 11/20/21 09:07 Fentanyl 25 Mcg/Hr Patch 72hr TD 1 applic Q3D YOSSI Administration Fentanyl 25 mcg 11/19/21 18:09 11/20/21 07:05 Fentanyl 100 Mcg/2 Ml Inj IV 11/21/21 18:08 25 mcg Q2HR PRN Administration Pain, Moderate (4-6) Hydrophilic Ointment 1 applic 11/06/21 04:02 Lip Therapy Vaseline TP Q2HR PRN Dry Lips NORepinephrine/NS 8 MG-250 ML 8 mg in 250 mls @ 3.75 mls/hr 11/05/21 09:00 11/18/21 03:26 Norepinephrine/Ns 8 Mg-250 Ml (Double Conc) IV 0 mcg/min TITRATE YOSSI 0 mls/hr Titration Protocol 2 MCG/MIN Vasopressin 20 unit/ Sodium 101 mls @ 9.09 mls/hr 11/05/21 23:00 11/06/21 01:00 Chloride IV 0.03 units/min TITR YOSSI 9.09 mls/hr Administration Protocol 0.03 UNITS/MIN Pantoprazole Sodium 80 mg/ 100 mls @ 10 mls/hr 11/16/21 17:00 11/20/21 01:34 Sodium Chloride IV 8 mg/hr DIRECT YOSSI 10 mls/hr Administration 8 MG/HR Fentanyl Citrate 2,000 mcg in 100 mls @ 3.12 mls/hr 11/17/21 13:00 11/20/21 10:11 Fentanyl Drip Premix IV 3 mcg/kg/hr TITR YOSSI 9.36 mls/hr Titration Protocol 1 MCG/KG/HR Dextrose 1,000 mls @ 75 mls/hr 11/17/21 16:00 11/20/21 06:44 D5w IV 11/21/21 05:19 75 mls/hr DIRECT YOSSI Administration Insulin Human Lispro 0 unit 11/06/21 12:00 11/20/21 06:43 Insulin Lispro 100 Unit/Ml SUB-Q Not Given Q6HR YOSSI Protocol Levothyroxine Sodium 125 mcg 11/05/21 07:00 11/20/21 05:29 Levothyroxine 125 Mcg Tab PO Not Given DAILY@0600 YOSSI Magnesium Hydroxide 30 ml 11/04/21 02:03 Magnesium Hydroxide (Mom) Oral Liqd Udc PO Q4H PRN Constipation Multi-Ingred Cream/Lotion/Oil/Oint 1 applic 11/06/21 04:02 Mineral Oil/Petrolatum, White Ophth Oint 3.5 Gm OU Q4HR PRN Dry Eye(s) Ondansetron HCl 4 mg 11/04/21 02:03 11/05/21 15:48 Ondansetron 4 Mg/2 Ml Inj IV 4 mg Q8H PRN Administration Nausea And Vomiting Polyethylene Glycol 17 gm 11/08/21 12:00 11/20/21 09:08 Polyethylene Glycol 3350 17 Gm Powder PO Not Given QDAY [facility] Potassium Chloride 40 meq 11/20/21 09:00 11/20/21 09:51 Potassium Chloride 20 Meq Packet FEEDTUBE 11/20/21 13:00 40 meq ONCE@0900 YOSSI Administration Pravastatin Sodium 20 mg 11/18/21 22:00 11/19/21 22:54 Pravastatin 20 Mg Tab PO Not Given QHS [facility] Senna 17.6 mg 11/08/21 22:00 11/20/21 09:08 Sennosides Oral Liqd 8.8 Mg/5 Ml Oral Liqd PO Not Given Q12HR YOSSI Simple Syrup 15 ml 11/08/21 11:09 Simple Syrup 15 Ml FEEDTUBE PRN PRN Hypoglycemia Simple Syrup 30 ml 11/08/21 11:09 Simple Syrup 15 Ml FEEDTUBE PRN PRN Hypoglycemia Sodium Bicarbonate 325 mg 11/08/21 11:09 Sodium Bicarbonate 325 Mg Tab FEEDTUBE PRN PRN For Clogged Feeding Tube Sodium Chloride 10 ml 11/04/21 10:00 11/20/21 09:07 Sodium Chloride 0.9% 10 Ml Flush Syringe IV 10 ml BID YOSSI Administration Sodium Chloride 10 ml 11/04/21 02:03 Sodium Chloride 0.9% 10 Ml Flush Syringe IV PRN PRN LINE FLUSH Sodium Chloride 10 ml 11/10/21 09:57 11/17/21 20:47 Sodium Chloride 0.9% 50 Ml Ivpb IV 10 ml PRN PRN Administration FLUSH Sucralfate 1 gm 11/18/21 16:30 11/20/21 09:07 Sucralfate 1 Gm/10 Ml Oral Liqd PO 1 gm ACHS YOSSI Administration Nutrition/Malnutrition Assess - Dietary Evaluation Nutrition/Malnutrition Findings: Nutrition Notes Start: 11/04/21 17:16 Freq: Status: Active Protocol: Document 11/19/21 16:30 ISABELL (Rec: 11/19/21 16:41 ISABELL [email or web address]) Nutrition Notes Initial or Follow up Brief Note Current Diet NPO. Height 5 ft Weight 62.4 kg [place] Body Weight (kg) 45.45 BMI 26.9 Weight change and time frame No body weight change reported . Weight Status Appropriate Subjective/Other Information RD consult for routine F/U on TF resume. Pt presented GI bleed. Procedure: EGD with hemostasis and biopsy. Pt continues on mechanical ventilation. indication to continue NPO. Percent of energy/protein needs met: Pt currently on NPO. Nutrition Intervention Follow-Up By: 11/21/21 Additional Comments F/U: TF restart/tolerance, vent status, Na lab/water flush <LEAH ALFONSO - Last Filed: 11/21/21 07:41> Assessment and Plan Assessment and plan: I saw and evaluated the patient. I agree with the findings and the plan of care as documented in the Nurse Practitioner's~note, with the following corrections and additions. Hospitalist Physical - Constitutional Vitals: Temp Pulse Resp BP Pulse Ox 97.7 F 76 20 123/55 95 11/21/21 04:00 11/21/21 06:30 11/21/21 06:30 11/21/21 06:30 11/21/21 06:30 HEART Score - HEART Score Troponin: Troponin T 0.033 ng/mL (0.00-0.029) H 11/05/21 06:11 Results - Labs CBC & Chem 7: 11/21/21 04:30 11/21/21 04:30 Labs: Laboratory Last Values WBC 9.3 K/mm3 (4.5-11.0) 11/21/21 04:30 RBC 3.25 M/mm3 (3.65-5.03) L 11/21/21 04:30 Hgb 8.6 gm/dl (10.1-14.3) L 11/21/21 04:30 Hct 28.1 % (30.3-42.9) L 11/21/21 04:30 MCV 86 fl (79-97) 11/21/21 04:30 MCH 26 pg (28-32) L 11/21/21 04:30 MCHC 31 % (30-34) 11/21/21 04:30 RDW 20.7 % (13.2-15.2) H 11/21/21 04:30 Plt Count 200 K/mm3 (140-440) 11/21/21 04:30 Add Manual Diff Complete 11/16/21 15:25 Total Counted 100 11/16/21 15:25 Seg Neutrophils % Blanket Winder Helper 11/06/21 15:50 Seg Neuts % (Manual) 87.0 % (40.0-70.0) H 11/16/21 15:25 Band Neutrophils % 0 % 11/16/21 15:25 Lymphocytes % (Manual) 8.0 % (13.4-35.0) L 11/16/21 15:25 Reactive Lymphs % (Man) 0 % 11/16/21 15:25 Monocytes % (Manual) 5.0 % (0.0-7.3) 11/16/21 15:25 Eosinophils % (Manual) 0 % (0.0-4.3) 11/16/21 15:25 Basophils % (Manual) 0 % (0.0-1.8) 11/16/21 15:25 Metamyelocytes % 0 % 11/16/21 15:25 Myelocytes % 0 % 11/16/21 15:25 Promyelocytes % 0 % 11/16/21 15:25 Blast Cells % 0 % 11/16/21 15:25 Nucleated RBC % Not Reportable 11/16/21 15:25 Seg Neutrophils # Man 15.0 K/mm3 (1.8-7.7) H 11/16/21 15:25 Band Neutrophils # 0.0 K/mm3 11/16/21 15:25 Lymphocytes # (Manual) 1.4 K/mm3 (1.2-5.4) 11/16/21 15:25 Abs React Lymphs (Man) 0.0 K/mm3 11/16/21 15:25 Monocytes # (Manual) 0.9 K/mm3 (0.0-0.8) H 11/16/21 15:25 Eosinophils # (Manual) 0.0 K/mm3 (0.0-0.4) 11/16/21 15:25 Basophils # (Manual) 0.0 K/mm3 (0.0-0.1) 11/16/21 15:25 Metamyelocytes # 0.0 K/mm3 11/16/21 15:25 Myelocytes # 0.0 K/mm3 11/16/21 15:25 Promyelocytes # 0.0 K/mm3 11/16/21 15:25 Blast Cells # 0.0 K/mm3 11/16/21 15:25 WBC Morphology Not Reportable 11/16/21 15:25 Hypersegmented Neuts Not Reportable 11/16/21 15:25 Hyposegmented Neuts Not Reportable 11/16/21 15:25 Hypogranular Neuts Not Reportable 11/16/21 15:25 Smudge Cells Not Reportable 11/16/21 15:25 Toxic Granulation Not Reportable 11/16/21 15:25 Toxic Vacuolation Not Reportable 11/16/21 15:25 Dohle Bodies Not Reportable 11/16/21 15:25 Pelger-Huet Anomaly Not Reportable 11/16/21 15:25 Irina Rods Not Reportable 11/16/21 15:25 Platelet Estimate Consistent w auto 11/16/21 15:25 Clumped Platelets Rare 11/16/21 15:25 Plt Clumps, EDTA Not Reportable 11/16/21 15:25 Large Platelets Not Reportable 11/16/21 15:25 Giant Platelets Not Reportable 11/16/21 15:25 Platelet Satelliting Not Reportable 11/16/21 15:25 Plt Morphology Comment Not Reportable 11/16/21 15:25 RBC Morphology Not Reportable 11/16/21 15:25 Dimorphic RBCs Not Reportable 11/16/21 15:25 Polychromasia Not Reportable 11/16/21 15:25 Hypochromasia 2+ 11/16/21 15:25 Poikilocytosis Not Reportable 11/16/21 15:25 Anisocytosis 2+ 11/16/21 15:25 Microcytosis Not Reportable 11/16/21 15:25 Macrocytosis Not Reportable 11/16/21 15:25 Spherocytes Not Reportable 11/16/21 15:25 Pappenheimer Bodies Not Reportable 11/16/21 15:25 Sickle Cells Not Reportable 11/16/21 15:25 Target Cells 2+ 11/16/21 15:25 Tear Drop Cells Not Reportable 11/16/21 15:25 Ovalocytes Not Reportable 11/16/21 15:25 Helmet Cells Not Reportable 11/16/21 15:25 [place] Bodies Not Reportable 11/16/21 15:25 [place] Rings Not Reportable 11/16/21 15:25 Malcom Cells Not Reportable 11/16/21 15:25 Bite Cells Not Reportable 11/16/21 15:25 Crenated Cell Not Reportable 11/16/21 15:25 Elliptocytes Not Reportable 11/16/21 15:25 Acanthocytes (Spur) Not Reportable 11/16/21 15:25 Rouleaux Not Reportable 11/16/21 15:25 Hemoglobin C Crystals Not Reportable 11/16/21 15:25 Schistocytes Not Reportable 11/16/21 15:25 Malaria parasites Not Reportable 11/16/21 15:25 Godfrey Bodies Not Reportable 11/16/21 15:25 Hem Pathologist Commnt No 11/16/21 15:25 PT 18.6 Sec. (12.2-14.9) H 11/03/21 22:32 INR 1.40 (0.87-1.13) H 11/03/21 22:32 APTT 28.9 Sec. (24.2-36.6) 11/03/21 22:32 D-Dimer 2655.00 ng/mlDDU (0-234) H 11/11/21 04:28 ABG pH 7.354 pH Units (7.350-7.450) 11/20/21 Unknown ABG pCO2 41.6 mm Hg 11/20/21 Unknown ABG pO2 85.2 mm Hg (80.0-90.0) 11/20/21 Unknown ABG HCO3 22.7 mmol/L (20.0-26.0) 11/20/21 Unknown ABG O2 Saturation 96.6 % (95.0-99.0) 11/20/21 Unknown ABG O2 Content 12.7 (0.0-44) 11/20/21 Unknown ABG Base Excess -2.7 mmol/L (-2.0-3.0) L 11/20/21 Unknown ABG Hemoglobin 9.5 gm/dl (12.0-16.0) L 11/20/21 Unknown ABG Carboxyhemoglobin 1.9 % (0.0-5.0) 11/20/21 Unknown ABG Methemoglobin 0.4 % (0.0-1.5) 11/20/21 Unknown Oxyhemoglobin 94.3 % (95.0-99.0) L 11/20/21 Unknown FiO2 30 % 11/20/21 Unknown Sodium 134 mmol/L (137-145) L 11/21/21 04:30 Potassium 4.4 mmol/L (3.6-5.0) D 11/21/21 04:30 Chloride 106.2 mmol/L (98-107) 11/21/21 04:30 Carbon Dioxide 20 mmol/L (22-30) L 11/21/21 04:30 Anion Gap 12 mmol/L 11/21/21 04:30 BUN 34 mg/dL (7-17) H 11/21/21 04:30 Creatinine 0.9 mg/dL (0.6-1.2) 11/21/21 04:30 Estimated GFR 60 ml/min 11/21/21 04:30 BUN/Creatinine Ratio 38 % 11/21/21 04:30 Glucose 93 mg/dL (65-100) 11/21/21 04:30 POC Glucose 88 mg/dL (70-105) 11/21/21 06:02 Lactic Acid 3.70 mmol/L (0.7-2.0) H* 11/03/21 22:32 Calcium 7.1 mg/dL (8.4-10.2) L 11/21/21 04:30 Phosphorus 3.30 mg/dL (2.5-4.5) 11/21/21 04:30 Magnesium 1.90 mg/dL (1.7-2.3) 11/21/21 04:30 Ferritin 52.6 ng/mL (10.0-200.0) 11/05/21 06:11 Total Bilirubin 0.50 mg/dL (0.1-1.2) 11/17/21 05:56 Direct Bilirubin < 0.2 mg/dL (0-0.2) 11/11/21 04:28 Indirect Bilirubin 0.1 mg/dL 11/11/21 04:28 AST 36 units/L (5-40) 11/17/21 05:56 ALT 47 units/L (7-56) 11/17/21 05:56 Alkaline Phosphatase 107 units/L (35-129) 11/17/21 05:56 Ammonia 42.0 umol/L (25-60) 11/10/21 14:08 Lactate Dehydrogenase 187 units/L (91-180) H 11/05/21 06:11 Troponin T 0.033 ng/mL (0.00-0.029) H 11/05/21 06:11 C-Reactive Protein 22.20 mg/dL (0.00-1.30) H 11/05/21 06:11 NT-Pro-B Natriuret Pep 7895 pg/mL (0-900) H 11/03/21 22:32 Total Protein 5.1 g/dL (6.3-8.2) L 11/17/21 05:56 Albumin 2.2 g/dL (3.9-5) L 11/17/21 05:56 Albumin/Globulin Ratio 0.8 % 11/17/21 05:56 Triglycerides 66 mg/dL (2-149) 11/03/21 22:32 Cholesterol 80 mg/dL (50-199) 11/03/21 22:32 LDL Cholesterol Direct 34 mg/dL (50-130) L 11/03/21 22:32 HDL Cholesterol 42 mg/dL (40-59) 11/03/21 22:32 Cholesterol/HDL Ratio 1.90 % 11/03/21 22:32 Vitamin B12 1823 pg/mL (211-911) H 11/10/21 14:08 TSH 1.510 mlU/mL (0.270-4.200) 11/10/21 14:08 Urine Color Yellow (Yellow) 11/11/21 09:00 Urine Turbidity Slightly-cloudy (Clear) 11/11/21 09:00 Urine pH 5.0 (5.0-7.0) 11/11/21 09:00 Ur Specific [place]ers 1.009 (1.003-1.030) 11/11/21 09:00 Urine Protein <15 mg/dl mg/dL (Negative) 11/11/21 09:00 Urine Glucose (UA) Neg mg/dL (Negative) 11/11/21 09:00 Urine Ketones Neg mg/dL (Negative) 11/11/21 09:00 Urine Blood Mod (Negative) 11/11/21 09:00 Urine Nitrite Neg (Negative) 11/11/21 09:00 Urine Bilirubin Neg (Negative) 11/11/21 09:00 Urine Urobilinogen < 2.0 mg/dL (<2.0) 01/25/22 09:00 Ur Leukocyte Esterase Neg (Negative) 11/11/21 09:00 Urine WBC (Auto) < 1.0 /HPF (0.0-6.0) 11/11/21 09:00 Urine RBC (Auto) < 1.0 /HPF (0.0-6.0) 11/11/21 09:00 Coronavirus (PCR) Negative (Negative) 11/10/21 08:30 Blood Type O POSITIVE 11/18/21 10:45 Antibody Screen Negative 11/18/21 10:45 Crossmatch See Detail 11/18/21 10:45 Gamble/IV: Voiding Method Incontinent Active Medications - Current Medications Current Medications: Generic Name Dose Route Start Last Admin Trade Name Freq PRN Reason Stop Dose Admin Acetaminophen 650 mg 11/04/21 02:03 11/16/21 15:43 Acetaminophen 325 Mg Tab PO 650 mg Q6H PRN Administration Pain MILD(1-3)/Fever >100.5/RODRIGUEZ Lipase/Protease/Amylase 1 each 11/08/21 11:09 Lipase 10,500/Protease 25,000/Amylase 43,750 (Units) Dr Lema FEEDTUBE PRN PRN For Clogged Feeding Tube Buspirone HCl 7.5 mg 11/17/21 22:00 11/20/21 21:09 Buspirone 5 Mg Tab PO 7.5 mg BID YOSSI Administration Dextrose 0 ml 11/10/21 10:52 11/20/21 12:37 Dextrose 10% *Hypoglycemia IV 50 ml PRN PRN Administration Hypoglycemia Docusate Sodium 100 mg 11/08/21 12:00 11/20/21 21:09 Docusate Sodium 100 Mg/10 Ml Oral Liqd PO 100 mg BID YOSSI Administration Fentanyl 1 applic 11/17/21 13:00 11/20/21 09:07 Fentanyl 25 Mcg/Hr Patch 72hr TD 1 applic Q3D YOSSI Administration Fentanyl 25 mcg 11/19/21 18:09 11/20/21 07:05 Fentanyl 100 Mcg/2 Ml Inj IV 11/21/21 18:08 25 mcg Q2HR PRN Administration Pain, Moderate (4-6) Hydrophilic Ointment 1 applic 11/06/21 04:02 Lip Therapy Vaseline TP Q2HR PRN Dry Lips NORepinephrine/NS 8 MG-250 ML 8 mg in 250 mls @ 3.75 mls/hr 11/05/21 09:00 11/18/21 03:26 Norepinephrine/Ns 8 Mg-250 Ml (Double Conc) IV 0 mcg/min TITRATE YOSSI 0 mls/hr Titration Protocol 2 MCG/MIN Vasopressin 20 unit/ Sodium 101 mls @ 9.09 mls/hr 11/05/21 23:00 11/06/21 01:00 Chloride IV 0.03 units/min TITR YOSSI 9.09 mls/hr Administration Protocol 0.03 UNITS/MIN Fentanyl Citrate 2,000 mcg in 100 mls @ 3.12 mls/hr 11/17/21 13:00 11/20/21 18:27 Fentanyl Drip Premix IV 1 mcg/kg/hr TITR YOSSI 3.12 mls/hr Titration Protocol 1 MCG/KG/HR Insulin Human Lispro 0 unit 11/06/21 12:00 11/21/21 06:53 Insulin Lispro 100 Unit/Ml SUB-Q Not Given Q6HR [facility] Protocol Levothyroxine Sodium 125 mcg 11/05/21 07:00 11/21/21 06:53 Levothyroxine 125 Mcg Tab PO 125 mcg DAILY@0600 [facility] Administration Magnesium Hydroxide 30 ml 11/04/21 02:03 Magnesium Hydroxide (Mom) Oral Liqd Udc PO Q4H PRN Constipation Multi-Ingred Cream/Lotion/Oil/Oint 1 applic 11/06/21 04:02 Mineral Oil/Petrolatum, White Ophth Oint 3.5 Gm OU Q4HR PRN Dry Eye(s) Ondansetron HCl 4 mg 11/04/21 02:03 11/05/21 15:48 Ondansetron 4 Mg/2 Ml Inj IV 4 mg Q8H PRN Administration Nausea And Vomiting Pantoprazole Sodium 40 mg 11/20/21 22:00 11/20/21 21:09 Pantoprazole 40 Mg Inj IV 40 mg BID YOSSI Administration Polyethylene Glycol 17 gm 11/08/21 12:00 11/20/21 09:08 Polyethylene Glycol 3350 17 Gm Powder PO Not Given QDAY [facility] Pravastatin Sodium 20 mg 11/18/21 22:00 11/20/21 21:09 Pravastatin 20 Mg Tab PO 20 mg QHS YOSSI Administration Quetiapine Fumarate 50 mg 11/20/21 22:00 11/20/21 21:10 Quetiapine 25 Mg Tab PO 50 mg BID YOSSI Administration Senna 17.6 mg 11/08/21 22:00 11/20/21 21:10 Sennosides Oral Liqd 8.8 Mg/5 Ml Oral Liqd PO 17.6 mg Q12HR YOSSI Administration Simple Syrup 15 ml 11/08/21 11:09 Simple Syrup 15 Ml FEEDTUBE PRN PRN Hypoglycemia Simple Syrup 30 ml 11/08/21 11:09 Simple Syrup 15 Ml FEEDTUBE PRN PRN Hypoglycemia Sodium Bicarbonate 325 mg 11/08/21 11:09 Sodium Bicarbonate 325 Mg Tab FEEDTUBE PRN PRN For Clogged Feeding Tube Sodium Chloride 10 ml 11/04/21 10:00 11/20/21 21:10 Sodium Chloride 0.9% 10 Ml Flush Syringe IV 10 ml BID YOSSI Administration Sodium Chloride 10 ml 11/04/21 02:03 Sodium Chloride 0.9% 10 Ml Flush Syringe IV PRN PRN LINE FLUSH Sodium Chloride 10 ml 11/10/21 09:57 11/17/21 20:47 Sodium Chloride 0.9% 50 Ml Ivpb IV 10 ml PRN PRN Administration FLUSH Sucralfate 1 gm 11/18/21 16:30 11/20/21 21:09 Sucralfate 1 Gm/10 Ml Oral Liqd PO 1 gm ACHS YOSSI Administration Nutrition/Malnutrition Assess - Dietary Evaluation Nutrition/Malnutrition Findings: Nutrition Notes Start: 11/04/21 17:16 Freq: Status: Active Protocol: Document 11/20/21 15:54 ISABELL (Rec: 11/20/21 16:31 ISABELL [id number]) Nutrition Notes Initial or Follow up Reassessment Current Diagnosis Decubitus(Pressure Ulcer), Diabetes,Sepsis,Hypertension, Respiratory Failure Other Pertinent Diagnosis Septic shock, Bilateral Pneumonia, Lower Extremity Cellulitis. Current Diet TF-Glucerna 1.2 Tamir @ 42 ml/hr (since D 11/20). Labs/Tests 11/20: K 3.5, Cl 108.9, BUN 37 , Glu 117. Pertinent Medications 11/20: D5w 1000 ml @ 75 ml/hr, others nutritionally unremarkable. Height 5 ft Weight 62.4 kg Elrod Body Weight (kg) 45.45 BMI 26.9 Weight change and time frame No body weight change reported . Weight Status Appropriate Subjective/Other Information RD consult for routine F/U on TF resume. Pt continues on mechanical ventilation. MD indication to Resume TF. Percent of energy/protein needs met: Prescribed Glucerna 1.2 Tamir @ 42 ml/hr provides for energy/ protein needs (1,208 Kcal/60 g ) during LOS, 100% Kcal; 81% AA. Burn Absent Trauma Absent GI Symptoms Diarrhea Difficulty In Swallowing,Chewing Food Allergy No Skin Integrity/Comment Lower Extremities Pressure Ulcer. Current % PO Other Minimum of two criteria No #1 Nutrition Diagnosis Inadequate oral intake Comments: Pt continues on mechanical ventilation. MD indication to Resume TF. Diagnosis Progress(for reassessment Continues documentation) Is patient on ventilator? Yes Is Patient Ambulatory and/or Out of Bed No REE-([facility]-confined to bed) 1207.82 Calculation Used for Recommendations [facility] Additional Notes Protein: 1.2-2 g/Kg; 75-125 g/ day. Fluids: 1 ml/Kcal, or as per MD. Nutrition Intervention Nutrition Support: Start Glucerna 1.2 Tamri @ 42 ml /hr. Flush: 70 ml water Q 4 hr, or as per MD. Kcal 1,208 Protein (gm) 60 Carbohydrates (gm) 115 Fat (gm) 60 Fluid (mL) 810 Fiber (gm) 16 % RDI: 100% Kcal; 81% AA. Goal #1 Provide at least 75% of energy /protein needs through Enteral Feeding during LOS. Goal #2 Maintain body weight within +/ -3% of admission body weight during LOS. Follow-Up By: 11/24/21 Additional Comments Continue monitoring TF tolerance and BM.
[2021-11-20] MEDS: DEXTROSE 10% *Hypoglycemia IV PRN (12:37)
--- NOTE | 2021-11-20 14:08 | Progress Note ---
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 - resume scheduled Lortabs - begin low dose Seroquel - placed on SBT and toplerating well so far - ABG after 2 hours - change Protonix top 40 mg IV bid - continue to trend H&H prn - prn Levophed for target MAP > 65 mmHg - continue care as below otherwise; - Daily SAT and SBT assessment as tolerated - continue to wean supplemental oxygen for target O2 sat's > 90% acutely - VAP bundle addressed - continue lung protective strategies - continue bronchodilators with pulmonary hygiene per RT - wean per pulmonary driven protocols otherwise - avoid nephrotoxins, renally dose all medications - continue accuchecks with glycemic control per SSI (While critically ill target blood glucose of 140-180 mg/dL; avoid hypoglycemia) - sedation prn for target RASS 0 to -1 - antibiotics per ID recommendations - continue to avoid benzodiazepine's, reduce the possibility of delirium - prn analgesia per CPOT score - Maintenance of sleep-wake cycle, avoid delirium - continue enteral nutritional support at goal rate as tolerated - G.I. & VTE prophylaxis - PT/OT/ROM exercises - continue mobility protocols for pressure ulcer prophylaxis - Monitor hemodynamics closely - continue other care per attending / other consultants - discharge planning ongoing concurrently COVID SPECIFIC INTERVENTIONS - COVID-19 PCR negative .... Re-evaluate in am & prn CONDITION: CRITICAL PROGNOSIS: GUARDED CODE STATUS: FULL CODE The high probability of a clinically significant, sudden or life-threatening deterioration of the [respiratory, cardiovascular & neurologic] system(s) required my full and direct attention, intervention and personal management. The aggregate critical care time was [32] minutes without overlap. Time includes spent on; [x] Data Review and interpretation [x] Patient assessment and monitoring of vital signs [x] Documentation [x] Medication orders and management Subjective Date of service: 11/20/21 Principal diagnosis: Septic shock; AHRF; Anemia; Pneumonia; L. pleural effusion; HFrEF; Pulm HTN Interval history: Patient is seen today for: Septic shock; Acute hypoxemic respiratory failure; Anemia; Bilateral pneumonia; Left pleural effusion; HFrEF 30-35%; Pulm HTN RVSP 49 Seen and examined at bedside; 24hour events reviewed; nursing and respiratory care staff consulted; no adverse overnight events reported to me; resting in bed; remains on MVS; H & H holding so far; cleared for tube feeds and meds by G.I. team; gamble replaced due to retention; still with intermittent agitation issues Objective Vital Signs - 12hr 11/20/21 11/20/21 11/20/21 02:30 03:00 03:30 Temperature Pulse Rate 81 69 74 Pulse Rate [ From Monitor] Respiratory 16 16 14 Rate Blood Pressure 153/70 115/50 125/71 O2 Sat by Pulse 100 99 99 Oximetry 11/20/21 11/20/21 11/20/21 04:00 04:30 04:49 Temperature 97.8 F Pulse Rate 69 70 64 Pulse Rate [ 77 From Monitor] Respiratory 12 16 Rate Blood Pressure 123/79 135/61 135/61 O2 Sat by Pulse 100 99 100 Oximetry 11/20/21 11/20/21 11/20/21 05:00 05:30 06:00 Temperature Pulse Rate 63 61 72 Pulse Rate [ From Monitor] Respiratory 20 14 13 Rate Blood Pressure 142/52 95/45 131/68 O2 Sat by Pulse 100 98 100 Oximetry 11/20/21 11/20/21 11/20/21 06:30 07:00 07:30 Temperature Pulse Rate 72 74 72 Pulse Rate [ From Monitor] Respiratory 21 13 17 Rate Blood Pressure 139/71 148/67 142/60 O2 Sat by Pulse 99 99 97 Oximetry 11/20/21 11/20/21 11/20/21 08:00 08:30 08:38 Temperature Pulse Rate 66 72 63 Pulse Rate [ 63 From Monitor] Respiratory 19 17 Rate Blood Pressure 106/48 118/63 118/63 O2 Sat by Pulse 97 92 95 Oximetry 11/20/21 11/20/21 11/20/21 09:00 09:30 10:00 Temperature Pulse Rate 73 76 75 Pulse Rate [ From Monitor] Respiratory 13 17 13 Rate Blood Pressure 124/61 148/69 145/72 O2 Sat by Pulse 98 98 Oximetry 11/20/21 11/20/21 11/20/21 10:30 11:00 11:27 Temperature Pulse Rate 74 69 Pulse Rate [ 67 From Monitor] Respiratory 18 13 15 Rate Blood Pressure 129/59 91/44 O2 Sat by Pulse 98 92 95 Oximetry 11/20/21 11/20/21 11/20/21 11:28 11:30 12:00 Temperature 97.0 F L Pulse Rate 67 68 68 Pulse Rate [ From Monitor] Respiratory 15 12 Rate Blood Pressure 107/57 107/52 O2 Sat by Pulse 97 Oximetry 11/20/21 11/20/21 11/20/21 12:30 12:41 13:00 Temperature Pulse Rate 67 65 66 Pulse Rate [ From Monitor] Respiratory 12 19 Rate Blood Pressure 116/59 109/51 109/51 O2 Sat by Pulse 96 100 99 Oximetry Constitutional: appears uncomfortable, other (ETT to MVS, frail elderly woman with mildly increased respiratory effort at rest) Eyes: non-icteric ENT: oropharynx moist, oropharyngeal exudate pre (clear frothy), other (ETT 23 cm ELIZABETH) Neck: supple, no lymphadenopathy, no JVD Effort: normal, mildly labored Ascultation: Bilateral: diminished breath sounds, rhonchi Percussion: Bilateral: not dull Cardiovascular: regular rate and rhythm, other (S1,S2) Gastrointestinal: normoactive bowel sounds, soft, non-tender, non-distended (pro tuberant) Integumentary: normal Extremities: no edema, pink and warm, pulses normal, edema (trace) Neurologic: non-focal exam (grossly), pupils equal and round, CN II-XII normal, other (sedated) Psychiatric: mood appropriate, affect normal CBC and BMP: 11/21/21 04:30 11/21/21 04:30 ABG, PT/INR, D-dimer: ABG ABG pH 7.407 pH Units (7.350-7.450) 11/14/21 16:14 ABG pCO2 45.6 mm Hg 11/14/21 16:14 ABG pO2 80.6 mm Hg (80.0-90.0) 11/14/21 16:14 ABG O2 Saturation 97.0 % (95.0-99.0) 11/14/21 16:14 PT/INR, D-dimer PT 18.6 Sec. (12.2-14.9) H 11/03/21 22:32 INR 1.40 (0.87-1.13) H 11/03/21 22:32 D-Dimer 2655.00 ng/mlDDU (0-234) H 11/11/21 04:28 Abnormal lab findings: Abnormal Labs 11/03/21 11/03/21 11/03/21 22:32 22:32 22:32 WBC 29.3 H RBC 2.93 L Hgb 6.1 L Hct 21.9 L MCV 75 L MCH 21 L MCHC 28 L RDW 19.7 H Plt Count Seg Neuts % (Manual) 97.0 H Lymphocytes % (Manual) 3.0 L Seg Neutrophils # Man 28.4 H Lymphocytes # (Manual) 0.9 L Monocytes # (Manual) PT 18.6 H INR 1.40 H D-Dimer ABG pH ABG pO2 ABG HCO3 ABG O2 Saturation ABG Base Excess ABG Hemoglobin Oxyhemoglobin Sodium Potassium Chloride Carbon Dioxide 20 L BUN 33 H Glucose 119 H POC Glucose Lactic Acid Calcium 8.3 L Phosphorus Magnesium AST ALT Alkaline Phosphatase Lactate Dehydrogenase Troponin T 0.035 H C-Reactive Protein NT-Pro-B Natriuret Pep Total Protein Albumin LDL Cholesterol Direct 34 L Vitamin B12 Crossmatch 11/03/21 11/03/21 11/03/21 22:32 22:32 23:57 WBC RBC Hgb Hct MCV MCH MCHC RDW Plt Count Seg Neuts % (Manual) Lymphocytes % (Manual) Seg Neutrophils # Man Lymphocytes # (Manual) Monocytes # (Manual) PT INR D-Dimer ABG pH ABG pO2 ABG HCO3 ABG O2 Saturation ABG Base Excess ABG Hemoglobin Oxyhemoglobin Sodium Potassium Chloride Carbon Dioxide BUN Glucose POC Glucose Lactic Acid 3.70 H* Calcium Phosphorus Magnesium AST ALT Alkaline Phosphatase 139 H Lactate Dehydrogenase Troponin T C-Reactive Protein NT-Pro-B Natriuret Pep 7895 H Total Protein Albumin 3.5 L LDL Cholesterol Direct Vitamin B12 Crossmatch See Detail 11/04/21 11/04/21 11/05/21 00:59 13:58 00:51 WBC 27.9 H RBC 3.28 L Hgb 7.3 L Hct 25.5 L MCV 78 L MCH 22 L MCHC 29 L RDW 19.1 H Plt Count Seg Neuts % (Manual) 96.0 H Lymphocytes % (Manual) 2.0 L Seg Neutrophils # Man 26.8 H Lymphocytes # (Manual) 0.6 L Monocytes # (Manual) PT INR D-Dimer ABG pH ABG pO2 ABG HCO3 ABG O2 Saturation ABG Base Excess ABG Hemoglobin Oxyhemoglobin Sodium Potassium Chloride Carbon Dioxide BUN Glucose POC Glucose Lactic Acid Calcium Phosphorus Magnesium AST ALT Alkaline Phosphatase Lactate Dehydrogenase Troponin T 0.051 H D 0.032 H D C-Reactive Protein NT-Pro-B Natriuret Pep Total Protein Albumin LDL Cholesterol Direct Vitamin B12 Crossmatch 11/05/21 11/05/21 11/05/21 06:11 06:11 06:11 WBC 31.8 H RBC 3.57 L Hgb 8.0 L Hct 27.7 L MCV 78 L MCH 22 L MCHC 29 L RDW 19.2 H Plt Count Seg Neuts % (Manual) 91.0 H Lymphocytes % (Manual) 4.5 L Seg Neutrophils # Man 28.9 H Lymphocytes # (Manual) Monocytes # (Manual) 1.1 H PT INR D-Dimer 1494.53 H ABG pH ABG pO2 ABG HCO3 ABG O2 Saturation ABG Base Excess ABG Hemoglobin Oxyhemoglobin Sodium Potassium Chloride Carbon Dioxide 19 L BUN 42 H Glucose 115 H POC Glucose Lactic Acid Calcium Phosphorus Magnesium AST 43 H ALT Alkaline Phosphatase Lactate Dehydrogenase 187 H Troponin T C-Reactive Protein 22.20 H NT-Pro-B Natriuret Pep Total Protein 6.0 L Albumin 3.2 L LDL Cholesterol Direct Vitamin B12 Crossmatch 11/05/21 11/05/21 11/06/21 06:11 12:15 00:30 WBC RBC Hgb Hct MCV MCH MCHC RDW Plt Count Seg Neuts % (Manual) Lymphocytes % (Manual) Seg Neutrophils # Man Lymphocytes # (Manual) Monocytes # (Manual) PT INR D-Dimer ABG pH ABG pO2 ABG HCO3 ABG O2 Saturation ABG Base Excess ABG Hemoglobin Oxyhemoglobin Sodium Potassium Chloride Carbon Dioxide BUN Glucose POC Glucose 113 H 69 L Lactic Acid Calcium Phosphorus Magnesium AST ALT Alkaline Phosphatase Lactate Dehydrogenase Troponin T 0.033 H C-Reactive Protein NT-Pro-B Natriuret Pep Total Protein Albumin LDL Cholesterol Direct Vitamin B12 Crossmatch 11/06/21 11/06/21 11/06/21 05:50 15:50 15:50 WBC 25.5 H RBC 3.62 L Hgb 8.0 L Hct 27.5 L MCV 76 L MCH 22 L MCHC 29 L RDW 19.6 H Plt Count Seg Neuts % (Manual) 92.0 H Lymphocytes % (Manual) 5.0 L Seg Neutrophils # Man 23.5 H Lymphocytes # (Manual) Monocytes # (Manual) PT INR D-Dimer ABG pH 7.305 L ABG pO2 ABG HCO3 15.8 L ABG O2 Saturation ABG Base Excess -9.6 L ABG Hemoglobin 8.6 L Oxyhemoglobin 94.6 L Sodium Potassium Chloride 113.9 H Carbon Dioxide 17 L BUN 56 H Glucose 114 H POC Glucose Lactic Acid Calcium 7.9 L Phosphorus Magnesium AST 1410 H ALT 934 H Alkaline Phosphatase 142 H Lactate Dehydrogenase Troponin T C-Reactive Protein NT-Pro-B Natriuret Pep Total Protein 5.0 L Albumin 2.6 L LDL Cholesterol Direct Vitamin B12 Crossmatch 11/07/21 11/07/21 11/07/21 03:30 04:50 08:07 WBC RBC Hgb Hct MCV MCH MCHC RDW Plt Count Seg Neuts % (Manual) Lymphocytes % (Manual) Seg Neutrophils # Man Lymphocytes # (Manual) Monocytes # (Manual) PT INR D-Dimer ABG pH ABG pO2 296.9 H ABG HCO3 18.1 L ABG O2 Saturation 99.5 H ABG Base Excess -5.9 L ABG Hemoglobin 7.6 L Oxyhemoglobin Sodium Potassium Chloride Carbon Dioxide BUN Glucose POC Glucose 106 H 108 H Lactic Acid Calcium Phosphorus Magnesium AST ALT Alkaline Phosphatase Lactate Dehydrogenase Troponin T C-Reactive Protein NT-Pro-B Natriuret Pep Total Protein Albumin LDL Cholesterol Direct Vitamin B12 Crossmatch 11/08/21 11/08/21 11/08/21 03:10 18:05 23:43 WBC RBC Hgb Hct MCV MCH MCHC RDW Plt Count Seg Neuts % (Manual) Lymphocytes % (Manual) Seg Neutrophils # Man Lymphocytes # (Manual) Monocytes # (Manual) PT INR D-Dimer ABG pH ABG pO2 127.4 H ABG HCO3 ABG O2 Saturation ABG Base Excess -3.4 L ABG Hemoglobin 7.4 L Oxyhemoglobin Sodium Potassium Chloride Carbon Dioxide BUN Glucose POC Glucose 113 H 141 H Lactic Acid Calcium Phosphorus Magnesium AST ALT Alkaline Phosphatase Lactate Dehydrogenase Troponin T C-Reactive Protein NT-Pro-B Natriuret Pep Total Protein Albumin LDL Cholesterol Direct Vitamin B12 Crossmatch 11/08/21 11/08/21 11/09/21 Unknown Unknown 02:00 WBC 14.5 H RBC 3.35 L Hgb 7.5 L 8.1 L Hct 25.4 L 27.6 L MCV 76 L 76 L MCH 23 L 22 L MCHC RDW 19.9 H 19.9 H Plt Count Seg Neuts % (Manual) Lymphocytes % (Manual) Seg Neutrophils # Man Lymphocytes # (Manual) Monocytes # (Manual) PT INR D-Dimer ABG pH ABG pO2 ABG HCO3 ABG O2 Saturation ABG Base Excess ABG Hemoglobin Oxyhemoglobin Sodium 154 H D Potassium 3.3 L Chloride 120.7 H Carbon Dioxide 20 L BUN 38 H Glucose POC Glucose Lactic Acid Calcium 8.3 L Phosphorus Magnesium AST ALT Alkaline Phosphatase Lactate Dehydrogenase Troponin T C-Reactive Protein NT-Pro-B Natriuret Pep Total Protein Albumin LDL Cholesterol Direct Vitamin B12 Crossmatch 11/09/21 11/09/21 11/09/21 02:00 02:31 05:12 WBC RBC Hgb Hct MCV MCH MCHC RDW Plt Count Seg Neuts % (Manual) Lymphocytes % (Manual) Seg Neutrophils # Man Lymphocytes # (Manual) Monocytes # (Manual) PT INR D-Dimer ABG pH 7.479 H ABG pO2 121.3 H ABG HCO3 ABG O2 Saturation ABG Base Excess ABG Hemoglobin 7.3 L Oxyhemoglobin Sodium Potassium Chloride 112.5 H Carbon Dioxide BUN 33 H Glucose 161 H POC Glucose 135 H Lactic Acid Calcium Phosphorus Magnesium AST 251 H ALT 481 H Alkaline Phosphatase Lactate Dehydrogenase Troponin T C-Reactive Protein NT-Pro-B Natriuret Pep Total Protein 5.0 L Albumin 2.8 L LDL Cholesterol Direct Vitamin B12 Crossmatch 11/09/21 11/09/21 11/09/21 11:33 16:32 23:28 WBC RBC Hgb Hct MCV MCH MCHC RDW Plt Count Seg Neuts % (Manual) Lymphocytes % (Manual) Seg Neutrophils # Man Lymphocytes # (Manual) Monocytes # (Manual) PT INR D-Dimer ABG pH ABG pO2 ABG HCO3 ABG O2 Saturation ABG Base Excess ABG Hemoglobin Oxyhemoglobin Sodium Potassium Chloride Carbon Dioxide BUN Glucose POC Glucose 132 H 133 H 143 H Lactic Acid Calcium Phosphorus Magnesium AST ALT Alkaline Phosphatase Lactate Dehydrogenase Troponin T C-Reactive Protein NT-Pro-B Natriuret Pep Total Protein Albumin LDL Cholesterol Direct Vitamin B12 Crossmatch 11/10/21 11/10/21 11/10/21 04:00 04:00 05:35 WBC 16.0 H RBC 3.61 L Hgb 8.0 L Hct 27.1 L MCV 75 L MCH 22 L MCHC RDW 20.4 H Plt Count Seg Neuts % (Manual) Lymphocytes % (Manual) Seg Neutrophils # Man Lymphocytes # (Manual) Monocytes # (Manual) PT INR D-Dimer ABG pH ABG pO2 ABG HCO3 ABG O2 Saturation ABG Base Excess ABG Hemoglobin Oxyhemoglobin Sodium 149 H Potassium Chloride 114.1 H Carbon Dioxide BUN 31 H Glucose 148 H POC Glucose 132 H Lactic Acid Calcium 8.2 L Phosphorus Magnesium AST ALT Alkaline Phosphatase Lactate Dehydrogenase Troponin T C-Reactive Protein NT-Pro-B Natriuret Pep Total Protein Albumin LDL Cholesterol Direct Vitamin B12 Crossmatch 11/10/21 11/10/21 11/10/21 11:31 14:08 15:35 WBC RBC Hgb Hct MCV MCH MCHC RDW Plt Count Seg Neuts % (Manual) Lymphocytes % (Manual) Seg Neutrophils # Man Lymphocytes # (Manual) Monocytes # (Manual) PT INR D-Dimer ABG pH ABG pO2 126.6 H ABG HCO3 ABG O2 Saturation ABG Base Excess ABG Hemoglobin 7.4 L Oxyhemoglobin Sodium Potassium Chloride Carbon Dioxide BUN Glucose POC Glucose 147 H Lactic Acid Calcium Phosphorus Magnesium AST ALT Alkaline Phosphatase Lactate Dehydrogenase Troponin T C-Reactive Protein NT-Pro-B Natriuret Pep Total Protein Albumin LDL Cholesterol Direct Vitamin B12 1823 H Crossmatch 11/10/21 11/11/21 11/11/21 17:53 00:55 04:28 WBC RBC Hgb Hct MCV MCH MCHC RDW Plt Count Seg Neuts % (Manual) Lymphocytes % (Manual) Seg Neutrophils # Man Lymphocytes # (Manual) Monocytes # (Manual) PT INR D-Dimer ABG pH ABG pO2 ABG HCO3 ABG O2 Saturation ABG Base Excess ABG Hemoglobin Oxyhemoglobin Sodium 149 H Potassium Chloride 112.2 H Carbon Dioxide BUN 34 H Glucose 148 H POC Glucose 140 H 145 H Lactic Acid Calcium 7.9 L Phosphorus Magnesium AST 53 H ALT 203 H Alkaline Phosphatase Lactate Dehydrogenase Troponin T C-Reactive Protein NT-Pro-B Natriuret Pep Total Protein 4.9 L Albumin 2.6 L LDL Cholesterol Direct Vitamin B12 Crossmatch 11/11/21 11/11/21 11/11/21 04:28 04:28 05:28 WBC 20.9 H RBC 3.47 L Hgb 7.5 L Hct 26.0 L MCV 75 L MCH 22 L MCHC 29 L RDW 21.6 H Plt Count 132 L Seg Neuts % (Manual) Lymphocytes % (Manual) Seg Neutrophils # Man Lymphocytes # (Manual) Monocytes # (Manual) PT INR D-Dimer 2655.00 H ABG pH ABG pO2 ABG HCO3 ABG O2 Saturation ABG Base Excess ABG Hemoglobin Oxyhemoglobin Sodium Potassium Chloride Carbon Dioxide BUN Glucose POC Glucose 154 H Lactic Acid Calcium Phosphorus Magnesium AST ALT Alkaline Phosphatase Lactate Dehydrogenase Troponin T C-Reactive Protein NT-Pro-B Natriuret Pep Total Protein Albumin LDL Cholesterol Direct Vitamin B12 Crossmatch 11/11/21 11/11/21 11/12/21 12:38 18:13 00:14 WBC RBC Hgb Hct MCV MCH MCHC RDW Plt Count Seg Neuts % (Manual) Lymphocytes % (Manual) Seg Neutrophils # Man Lymphocytes # (Manual) Monocytes # (Manual) PT INR D-Dimer ABG pH ABG pO2 ABG HCO3 ABG O2 Saturation ABG Base Excess ABG Hemoglobin Oxyhemoglobin Sodium Potassium Chloride Carbon Dioxide BUN Glucose POC Glucose 137 H 108 H 137 H Lactic Acid Calcium Phosphorus Magnesium AST ALT Alkaline Phosphatase Lactate Dehydrogenase Troponin T C-Reactive Protein NT-Pro-B Natriuret Pep Total Protein Albumin LDL Cholesterol Direct Vitamin B12 Crossmatch 11/12/21 11/12/21 11/12/21 05:40 06:24 11:12 WBC RBC Hgb Hct MCV MCH MCHC RDW Plt Count Seg Neuts % (Manual) Lymphocytes % (Manual) Seg Neutrophils # Man Lymphocytes # (Manual) Monocytes # (Manual) PT INR D-Dimer ABG pH 7.586 H ABG pO2 150.6 H ABG HCO3 27.2 H ABG O2 Saturation 99.1 H ABG Base Excess 5.2 H ABG Hemoglobin 7.5 L Oxyhemoglobin Sodium Potassium Chloride Carbon Dioxide BUN Glucose POC Glucose 132 H 140 H Lactic Acid Calcium Phosphorus Magnesium AST ALT Alkaline Phosphatase Lactate Dehydrogenase Troponin T C-Reactive Protein NT-Pro-B Natriuret Pep Total Protein Albumin LDL Cholesterol Direct Vitamin B12 Crossmatch 11/12/21 11/12/21 11/12/21 14:50 14:50 17:13 WBC 19.8 H RBC 3.27 L Hgb 7.1 L Hct 24.5 L MCV 75 L MCH 22 L MCHC 29 L RDW 22.3 H Plt Count Seg Neuts % (Manual) Lymphocytes % (Manual) Seg Neutrophils # Man Lymphocytes # (Manual) Monocytes # (Manual) PT INR D-Dimer ABG pH ABG pO2 ABG HCO3 ABG O2 Saturation ABG Base Excess ABG Hemoglobin Oxyhemoglobin Sodium 150 H Potassium 3.3 L Chloride 112.0 H Carbon Dioxide BUN 40 H Glucose 151 H POC Glucose 121 H Lactic Acid Calcium 7.4 L Phosphorus 1.70 L Magnesium 1.40 L AST ALT Alkaline Phosphatase Lactate Dehydrogenase Troponin T C-Reactive Protein NT-Pro-B Natriuret Pep Total Protein Albumin LDL Cholesterol Direct Vitamin B12 Crossmatch 11/12/21 11/13/21 11/13/21 23:19 05:34 06:30 WBC RBC Hgb Hct MCV MCH MCHC RDW Plt Count Seg Neuts % (Manual) Lymphocytes % (Manual) Seg Neutrophils # Man Lymphocytes # (Manual) Monocytes # (Manual) PT INR D-Dimer ABG pH ABG pO2 ABG HCO3 ABG O2 Saturation ABG Base Excess ABG Hemoglobin Oxyhemoglobin Sodium 149 H Potassium Chloride 60.0 L Carbon Dioxide BUN 40 H Glucose 146 H POC Glucose 113 H 132 H Lactic Acid Calcium 7.3 L Phosphorus Magnesium 2.40 H AST ALT 72 H Alkaline Phosphatase Lactate Dehydrogenase Troponin T C-Reactive Protein NT-Pro-B Natriuret Pep Total Protein 5.2 L Albumin 2.2 L LDL Cholesterol Direct Vitamin B12 Crossmatch 11/13/21 11/13/21 11/13/21 06:30 08:30 11:19 WBC 21.2 H RBC 3.12 L Hgb 6.8 L Hct 23.2 L MCV 74 L MCH 22 L MCHC 29 L RDW 22.2 H Plt Count 135 L Seg Neuts % (Manual) Lymphocytes % (Manual) Seg Neutrophils # Man Lymphocytes # (Manual) Monocytes # (Manual) PT INR D-Dimer ABG pH ABG pO2 ABG HCO3 ABG O2 Saturation ABG Base Excess ABG Hemoglobin Oxyhemoglobin Sodium Potassium Chloride Carbon Dioxide BUN Glucose POC Glucose 136 H Lactic Acid Calcium Phosphorus Magnesium AST ALT Alkaline Phosphatase Lactate Dehydrogenase Troponin T C-Reactive Protein NT-Pro-B Natriuret Pep Total Protein Albumin LDL Cholesterol Direct Vitamin B12 Crossmatch See Detail 11/13/21 11/14/21 11/14/21 18:21 00:01 04:46 WBC 20.0 H RBC 3.41 L Hgb 7.9 L Hct 26.8 L MCV MCH 23 L MCHC 29 L RDW 24.0 H Plt Count Seg Neuts % (Manual) Lymphocytes % (Manual) Seg Neutrophils # Man Lymphocytes # (Manual) Monocytes # (Manual) PT INR D-Dimer ABG pH ABG pO2 ABG HCO3 ABG O2 Saturation ABG Base Excess ABG Hemoglobin Oxyhemoglobin Sodium Potassium Chloride Carbon Dioxide BUN Glucose POC Glucose 149 H 141 H Lactic Acid Calcium Phosphorus Magnesium AST ALT Alkaline Phosphatase Lactate Dehydrogenase Troponin T C-Reactive Protein NT-Pro-B Natriuret Pep Total Protein Albumin LDL Cholesterol Direct Vitamin B12 Crossmatch 11/14/21 11/14/21 11/14/21 04:46 05:10 11:10 WBC RBC Hgb Hct MCV MCH MCHC RDW Plt Count Seg Neuts % (Manual) Lymphocytes % (Manual) Seg Neutrophils # Man Lymphocytes # (Manual) Monocytes # (Manual) PT INR D-Dimer ABG pH ABG pO2 ABG HCO3 ABG O2 Saturation ABG Base Excess ABG Hemoglobin Oxyhemoglobin Sodium 148 H Potassium Chloride 113.1 H Carbon Dioxide BUN 43 H Glucose 140 H POC Glucose 132 H 133 H Lactic Acid Calcium 7.5 L Phosphorus Magnesium AST ALT Alkaline Phosphatase Lactate Dehydrogenase Troponin T C-Reactive Protein NT-Pro-B Natriuret Pep Total Protein Albumin LDL Cholesterol Direct Vitamin B12 Crossmatch 11/14/21 11/14/21 11/14/21 16:14 17:48 23:23 WBC RBC Hgb Hct MCV MCH MCHC RDW Plt Count Seg Neuts % (Manual) Lymphocytes % (Manual) Seg Neutrophils # Man Lymphocytes # (Manual) Monocytes # (Manual) PT INR D-Dimer ABG pH ABG pO2 ABG HCO3 28.0 H ABG O2 Saturation ABG Base Excess 3.1 H ABG Hemoglobin 5.8 L Oxyhemoglobin 94.8 L Sodium Potassium Chloride Carbon Dioxide BUN Glucose POC Glucose 130 H 136 H Lactic Acid Calcium Phosphorus Magnesium AST ALT Alkaline Phosphatase Lactate Dehydrogenase Troponin T C-Reactive Protein NT-Pro-B Natriuret Pep Total Protein Albumin LDL Cholesterol Direct Vitamin B12 Crossmatch 11/15/21 11/15/21 11/15/21 05:20 05:50 05:50 WBC 19.9 H RBC 3.50 L Hgb 8.2 L Hct 27.9 L MCV MCH 23 L MCHC 29 L RDW 24.9 H Plt Count Seg Neuts % (Manual) Lymphocytes % (Manual) Seg Neutrophils # Man Lymphocytes # (Manual) Monocytes # (Manual) PT INR D-Dimer ABG pH ABG pO2 ABG HCO3 ABG O2 Saturation ABG Base Excess ABG Hemoglobin Oxyhemoglobin Sodium 149 H Potassium Chloride 112.0 H Carbon Dioxide BUN 48 H Glucose 152 H POC Glucose 137 H Lactic Acid Calcium 7.9 L Phosphorus Magnesium AST ALT Alkaline Phosphatase Lactate Dehydrogenase Troponin T C-Reactive Protein NT-Pro-B Natriuret Pep Total Protein Albumin LDL Cholesterol Direct Vitamin B12 Crossmatch 11/15/21 11/15/21 11/15/21 12:12 17:07 23:24 WBC RBC Hgb Hct MCV MCH MCHC RDW Plt Count Seg Neuts % (Manual) Lymphocytes % (Manual) Seg Neutrophils # Man Lymphocytes # (Manual) Monocytes # (Manual) PT INR D-Dimer ABG pH ABG pO2 ABG HCO3 ABG O2 Saturation ABG Base Excess ABG Hemoglobin Oxyhemoglobin Sodium Potassium Chloride Carbon Dioxide BUN Glucose POC Glucose 114 H 135 H 123 H Lactic Acid Calcium Phosphorus Magnesium AST ALT Alkaline Phosphatase Lactate Dehydrogenase Troponin T C-Reactive Protein NT-Pro-B Natriuret Pep Total Protein Albumin LDL Cholesterol Direct Vitamin B12 Crossmatch 11/16/21 11/16/21 11/16/21 05:21 10:00 10:00 WBC 21.7 H RBC 2.57 L Hgb 6.0 L Hct 20.2 L D MCV MCH 24 L MCHC RDW 26.3 H Plt Count Seg Neuts % (Manual) Lymphocytes % (Manual) Seg Neutrophils # Man Lymphocytes # (Manual) Monocytes # (Manual) PT INR D-Dimer ABG pH ABG pO2 ABG HCO3 ABG O2 Saturation ABG Base Excess ABG Hemoglobin Oxyhemoglobin Sodium 153 H Potassium Chloride 114.9 H Carbon Dioxide BUN 74 H Glucose 155 H POC Glucose 127 H Lactic Acid Calcium 8.1 L Phosphorus Magnesium AST ALT Alkaline Phosphatase Lactate Dehydrogenase Troponin T C-Reactive Protein NT-Pro-B Natriuret Pep Total Protein Albumin LDL Cholesterol Direct Vitamin B12 Crossmatch 11/16/21 11/16/21 11/16/21 11:34 14:00 15:25 WBC 17.2 H RBC 2.08 L Hgb 4.7 L* Hct 16.2 L* MCV 78 L MCH 23 L MCHC 29 L RDW 26.0 H Plt Count Seg Neuts % (Manual) 87.0 H Lymphocytes % (Manual) 8.0 L Seg Neutrophils # Man 15.0 H Lymphocytes # (Manual) Monocytes # (Manual) 0.9 H PT INR D-Dimer ABG pH ABG pO2 ABG HCO3 ABG O2 Saturation ABG Base Excess ABG Hemoglobin Oxyhemoglobin Sodium Potassium Chloride Carbon Dioxide BUN Glucose POC Glucose 131 H Lactic Acid Calcium Phosphorus Magnesium AST ALT Alkaline Phosphatase Lactate Dehydrogenase Troponin T C-Reactive Protein NT-Pro-B Natriuret Pep Total Protein Albumin LDL Cholesterol Direct Vitamin B12 Crossmatch See Detail 11/16/21 11/16/21 11/16/21 15:25 17:21 22:43 WBC RBC Hgb 8.6 L D Hct 27.7 L D MCV MCH MCHC RDW Plt Count Seg Neuts % (Manual) Lymphocytes % (Manual) Seg Neutrophils # Man Lymphocytes # (Manual) Monocytes # (Manual) PT INR D-Dimer ABG pH ABG pO2 ABG HCO3 ABG O2 Saturation ABG Base Excess ABG Hemoglobin Oxyhemoglobin Sodium 148 H Potassium Chloride 113.2 H Carbon Dioxide BUN 84 H Glucose 164 H POC Glucose 124 H Lactic Acid Calcium 7.6 L Phosphorus Magnesium AST ALT Alkaline Phosphatase Lactate Dehydrogenase Troponin T C-Reactive Protein NT-Pro-B Natriuret Pep Total Protein Albumin LDL Cholesterol Direct Vitamin B12 Crossmatch 11/16/21 11/17/21 11/17/21 23:07 05:33 05:56 WBC 25.1 H RBC 3.47 L Hgb 8.7 L Hct 28.5 L MCV MCH 25 L MCHC RDW 22.3 H Plt Count Seg Neuts % (Manual) Lymphocytes % (Manual) Seg Neutrophils # Man Lymphocytes # (Manual) Monocytes # (Manual) PT INR D-Dimer ABG pH ABG pO2 ABG HCO3 ABG O2 Saturation ABG Base Excess ABG Hemoglobin Oxyhemoglobin Sodium Potassium Chloride Carbon Dioxide BUN Glucose POC Glucose 128 H 133 H Lactic Acid Calcium Phosphorus Magnesium AST ALT Alkaline Phosphatase Lactate Dehydrogenase Troponin T C-Reactive Protein NT-Pro-B Natriuret Pep Total Protein Albumin LDL Cholesterol Direct Vitamin B12 Crossmatch 11/17/21 11/17/21 11/17/21 05:56 11:00 11:55 WBC RBC Hgb 8.3 L Hct 26.9 L MCV MCH MCHC RDW Plt Count Seg Neuts % (Manual) Lymphocytes % (Manual) Seg Neutrophils # Man Lymphocytes # (Manual) Monocytes # (Manual) PT INR D-Dimer ABG pH ABG pO2 ABG HCO3 ABG O2 Saturation ABG Base Excess ABG Hemoglobin Oxyhemoglobin Sodium 151 H Potassium Chloride 113.6 H Carbon Dioxide BUN 85 H Glucose 132 H POC Glucose 121 H Lactic Acid Calcium 7.8 L Phosphorus Magnesium AST ALT Alkaline Phosphatase Lactate Dehydrogenase Troponin T C-Reactive Protein NT-Pro-B Natriuret Pep Total Protein 5.1 L Albumin 2.2 L LDL Cholesterol Direct Vitamin B12 Crossmatch 11/17/21 11/17/21 11/18/21 18:04 18:55 00:26 WBC RBC Hgb 7.5 L 7.1 L Hct 24.8 L 23.6 L MCV MCH MCHC RDW Plt Count Seg Neuts % (Manual) Lymphocytes % (Manual) Seg Neutrophils # Man Lymphocytes # (Manual) Monocytes # (Manual) PT INR D-Dimer ABG pH ABG pO2 ABG HCO3 ABG O2 Saturation ABG Base Excess ABG Hemoglobin Oxyhemoglobin Sodium Potassium Chloride Carbon Dioxide BUN Glucose POC Glucose 144 H Lactic Acid Calcium Phosphorus Magnesium AST ALT Alkaline Phosphatase Lactate Dehydrogenase Troponin T C-Reactive Protein NT-Pro-B Natriuret Pep Total Protein Albumin LDL Cholesterol Direct Vitamin B12 Crossmatch 11/18/21 11/18/21 11/18/21 00:43 05:10 05:10 WBC 12.5 H RBC 2.39 L Hgb 6.1 L Hct 20.2 L MCV MCH 25 L MCHC RDW 23.2 H Plt Count Seg Neuts % (Manual) Lymphocytes % (Manual) Seg Neutrophils # Man Lymphocytes # (Manual) Monocytes # (Manual) PT INR D-Dimer ABG pH ABG pO2 ABG HCO3 ABG O2 Saturation ABG Base Excess ABG Hemoglobin Oxyhemoglobin Sodium 131 L D Potassium 2.9 L* D Chloride 97.8 L Carbon Dioxide BUN 58 H Glucose 665 H* POC Glucose 139 H Lactic Acid Calcium 7.0 L Phosphorus 2.20 L D Magnesium 1.50 L AST ALT Alkaline Phosphatase Lactate Dehydrogenase Troponin T C-Reactive Protein NT-Pro-B Natriuret Pep Total Protein Albumin LDL Cholesterol Direct Vitamin B12 Crossmatch 11/18/21 11/18/21 11/18/21 05:23 07:10 10:45 WBC RBC Hgb Hct MCV MCH MCHC RDW Plt Count Seg Neuts % (Manual) Lymphocytes % (Manual) Seg Neutrophils # Man Lymphocytes # (Manual) Monocytes # (Manual) PT INR D-Dimer ABG pH ABG pO2 ABG HCO3 ABG O2 Saturation ABG Base Excess ABG Hemoglobin Oxyhemoglobin Sodium 148 H D Potassium 3.1 L Chloride 111.9 H Carbon Dioxide BUN 63 H Glucose 141 H POC Glucose 124 H Lactic Acid Calcium 8.1 L D Phosphorus Magnesium AST ALT Alkaline Phosphatase Lactate Dehydrogenase Troponin T C-Reactive Protein NT-Pro-B Natriuret Pep Total Protein Albumin LDL Cholesterol Direct Vitamin B12 Crossmatch See Detail 11/18/21 11/19/21 11/19/21 11:57 00:19 04:55 WBC RBC 3.35 L Hgb 9.0 L 8.9 L Hct 28.3 L D 28.1 L MCV MCH 27 L MCHC RDW 20.3 H Plt Count Seg Neuts % (Manual) Lymphocytes % (Manual) Seg Neutrophils # Man Lymphocytes # (Manual) Monocytes # (Manual) PT INR D-Dimer ABG pH ABG pO2 ABG HCO3 ABG O2 Saturation ABG Base Excess ABG Hemoglobin Oxyhemoglobin Sodium Potassium Chloride Carbon Dioxide BUN Glucose POC Glucose 119 H Lactic Acid Calcium Phosphorus Magnesium AST ALT Alkaline Phosphatase Lactate Dehydrogenase Troponin T C-Reactive Protein NT-Pro-B Natriuret Pep Total Protein Albumin LDL Cholesterol Direct Vitamin B12 Crossmatch 11/19/21 11/19/21 11/20/21 04:55 05:42 00:55 WBC RBC Hgb 9.0 L Hct 28.6 L MCV MCH MCHC RDW Plt Count Seg Neuts % (Manual) Lymphocytes % (Manual) Seg Neutrophils # Man Lymphocytes # (Manual) Monocytes # (Manual) PT INR D-Dimer ABG pH ABG pO2 ABG HCO3 ABG O2 Saturation ABG Base Excess ABG Hemoglobin Oxyhemoglobin Sodium Potassium 3.5 L Chloride 108.6 H Carbon Dioxide BUN 47 H Glucose 207 H POC Glucose 63 L Lactic Acid Calcium 7.1 L Phosphorus Magnesium AST ALT Alkaline Phosphatase Lactate Dehydrogenase Troponin T C-Reactive Protein NT-Pro-B Natriuret Pep Total Protein Albumin LDL Cholesterol Direct Vitamin B12 Crossmatch 11/20/21 11/20/21 05:40 05:40 WBC RBC 3.40 L Hgb 9.1 L Hct 28.8 L MCV MCH 27 L MCHC RDW 20.7 H Plt Count Seg Neuts % (Manual) Lymphocytes % (Manual) Seg Neutrophils # Man Lymphocytes # (Manual) Monocytes # (Manual) PT INR D-Dimer ABG pH ABG pO2 ABG HCO3 ABG O2 Saturation ABG Base Excess ABG Hemoglobin Oxyhemoglobin Sodium Potassium 3.5 L Chloride 108.9 H Carbon Dioxide BUN 37 H Glucose 117 H POC Glucose Lactic Acid Calcium 7.5 L Phosphorus Magnesium AST ALT Alkaline Phosphatase Lactate Dehydrogenase Troponin T C-Reactive Protein NT-Pro-B Natriuret Pep Total Protein Albumin LDL Cholesterol Direct Vitamin B12 Crossmatch Allied health notes reviewed: nursing
--- NOTE | 2021-11-20 14:08 | Progress Note ---
Assessment and Plan Cultures: SARS CoV2 PCR: negative 11/03/2021 blood culture: Group B streptococcus 11/04/2021 blood culture: no growth 11/11/2021 blood culture: No growth A/P: 81-year-old female with diabetes mellitus, hypertension, arthritis was admitted with shortness of breath. She was also having fever: #Severe sepsis with shock, secondary to bilateral pneumonia: likely from Group B Strep. COVID-19 negative #Group B Strep bacteremia: Likely secondary to above, no other source identified, other possibility is mild lower extremity cellulitis. Does have indwelling cardiac device, per patient it is a pacemaker. TTE showed no valvular or lead vegetations #Acute hypoxic respiratory failure: Secondary to above. Intubated, on the vent. #Acute DVT: unable to anticoagulate Recs: -Completed antibiotics -overall guarded prognosis Mahogany Montes MD [facility] ([facility]) O: [phone] F: [phone] Subjective Date of service: 11/20/21 Principal diagnosis: Septic shock; AHRF; Anemia; Pneumonia; L. pleural effusion; HFrEF; Pulm HTN Interval history: Afebrile, normal white count. Objective - Exam Narrative Exam: Physical exam deferred to reduce risk of transmission of COVID-19. Please refer to primary team's note. - Constitutional Vitals: Vital Signs Temp Pulse Resp BP Pulse Ox 97.0 F L 66 19 109/51 99 11/20/21 12:00 11/20/21 13:00 11/20/21 13:00 11/20/21 13:00 11/20/21 13:00 Temperature -Last 24 Hours Temperature 97.0 F Temperature 97.8 F Temperature 97.5 F Temperature 97.5 F Temperature 97.5 F Temperature 97.5 F Temperature 97.4 F - Labs CBC & Chem 7: 11/20/21 05:40 11/20/21 05:40 Labs: Abnormal lab results 11/20/21 11/20/21 11/20/21 Range/Units 00:55 05:40 05:40 RBC 3.40 L (3.65-5.03) M/mm3 Hgb 9.0 L 9.1 L (10.1-14.3) gm/dl Hct 28.6 L 28.8 L (30.3-42.9) % MCH 27 L (28-32) pg RDW 20.7 H (13.2-15.2) % Potassium 3.5 L (3.6-5.0) mmol/L Chloride 108.9 H (98-107) mmol/L BUN 37 H (7-17) mg/dL Glucose 117 H (65-100) mg/dL Calcium 7.5 L (8.4-10.2) mg/dL
--- NOTE | 2021-11-20 14:55 | Progress Note ---
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 She was found to be in respiratory distress, initially treated with NRB. Pt was also noted to be septic with radiographic evidence of bilateral PNA Acute Respiratory Failure Septic Shock GBS Bacteremia Bilateral Pneumonia Bilateral Pleural Effusions Right pneumothorax and s/p right chest tube Acute HFrEF DVT- s/p IVC filter Cardiomyopathy (EF reduced to 30-35% on echo this admission) NSVT Tn Elevation (?Type 2 MO in the setting of hypoxia & shock) Anemia GI bleed CAD s/p PCI (2004) CHB s/p PPM ([facility]) Hypothyroidism H/o HTN H/o DM Arthritis Echo reviewed - EF 30-35%, mild diastolic dysfunction, RV mildly dilated, moderate MR, moderate TR, moderate pulmonary HTN w/RVSP 49mmHg, no pericardial effusion, large left pleural effusion. Plan: Will continue to hold BB for soft BP Not on ASA d/t allergy. Patient S/p IVC filter Continue statin Pt seen in conjunction with Dr. Rizo who agrees with the assessment and plan of care. - Patient Problems (1) Acute anemia Current Visit: Yes Status: Acute (2) Acute respiratory failure with hypoxia Current Visit: Yes Status: Acute (3) Bilateral pneumonia Current Visit: Yes Status: Acute Subjective Date of service: 11/20/21 Principal diagnosis: Septic shock; AHRF; Anemia; Pneumonia; L. pleural effusion; HFrEF; Pulm HTN Interval history: Patient remained intubated Sinus 70s on monitor Objective Vital Signs Temp Pulse Pulse Resp BP Pulse Ox 11/20/21 14:30 69 16 133/58 99 11/20/21 14:00 67 13 114/53 99 11/20/21 13:30 66 14 116/52 99 11/20/21 13:00 66 19 109/51 99 11/20/21 12:41 65 109/51 100 11/20/21 12:30 67 12 116/59 96 11/20/21 12:00 97.0 F L 68 12 107/52 11/20/21 11:30 68 15 107/57 97 11/20/21 11:28 67 11/20/21 11:27 67 15 95 11/20/21 11:00 69 13 91/44 92 11/20/21 10:30 74 18 129/59 98 03 10:00 75 13 145/72 98 03 09:30 76 17 148/69 98 11/20/21 09:00 73 13 124/61 11/20/21 08:38 63 118/63 95 11/20/21 08:30 72 17 118/63 92 11/20/21 08:00 66 63 19 106/48 97 03 07:30 72 17 142/60 97 11/20/21 07:00 74 13 148/67 99 11/20/21 06:30 72 21 139/71 99 11/20/21 06:00 72 13 131/68 100 11/20/21 05:30 61 14 95/45 98 11/20/21 05:00 63 20 142/52 100 11/20/21 04:49 64 135/61 100 11/20/21 04:30 70 16 135/61 99 11/20/21 04:00 97.8 F 69 77 12 123/79 100 03 03:30 74 14 125/71 99 11/20/21 03:00 69 16 115/50 99 03 02:30 81 16 153/70 100 11/20/21 02:00 79 18 147/69 88 03 01:30 66 23 117/55 98 11/20/21 01:00 66 24 107/52 97 11/20/21 00:30 73 8 L 123/59 97 03 00:03 69 149/59 98 11/20/21 00:00 97.5 F L 65 77 15 102/45 94 0222 23:30 68 13 149/59 100 11/19/21 23:26 67 11 L 142/60 99 020222 23:00 72 18 142/60 98 0222 22:30 78 15 85/36 94 02 22:00 67 20 104/50 98 0222 21:30 68 23 110/52 98 02 21:00 64 15 99/43 97 02 20:31 66 16 109/49 99 0222 20:24 62 90/45 98 02 20:00 97.5 F L 64 77 20 90/45 95 11/19/21 19:30 65 24 85/36 96 11/19/21 19:00 63 19 119/55 93 11/19/21 18:30 64 15 102/43 95 11/19/21 18:23 97.4 F L 11/19/21 18:00 68 17 106/44 92 11/19/21 17:30 65 24 106/44 100 11/19/21 17:00 67 13 104/51 98 11/19/21 16:30 65 11 L 98/48 99 11/19/21 16:00 65 67 20 98/48 95 11/19/21 15:30 63 17 94/48 98 11/19/21 15:00 63 5 L 85/41 99 - Physical Examination General: Other (intubated) HEENT: Positive: Normocephaly Neck: Positive: neck supple, trachea midline Cardiac: Positive: Reg Rate and Rhythm Lungs: Positive: Ventilated Respirations Neuro: Positive: Other (intubated) Abdomen: Positive: Soft Skin: Negative: Rash, Wound Musculoskeletal: No Fluid Collection Extremities: Present: lower extr. pulses, edema - Labs and Meds CBC 11/20/21 11/20/21 Range/Units 00:55 05:40 WBC 8.2 (4.5-11.0) K/mm3 RBC 3.40 L (3.65-5.03) M/mm3 Hgb 9.0 L 9.1 L (10.1-14.3) gm/dl Hct 28.6 L 28.8 L (30.3-42.9) % Plt Count 172 (140-440) K/mm3 Comprehensive Metabolic Panel 11/20/21 Range/Units 05:40 Sodium 141 (137-145) mmol/L Potassium 3.5 L (3.6-5.0) mmol/L Chloride 108.9 H (98-107) mmol/L Carbon Dioxide 23 (22-30) mmol/L BUN 37 H (7-17) mg/dL Creatinine 0.8 (0.6-1.2) mg/dL Glucose 117 H (65-100) mg/dL Calcium 7.5 L (8.4-10.2) mg/dL - Imaging and Cardiology EKG: report reviewed, image reviewed Stress echo: report reviewed Echo: report reviewed Cardiac cath: report reviewed - EKG Sinus rhythms and dysrhythmias: sinus rhythm, sinus tachycardia Ventricular dysrhythmias: ventricular premature com - Allied health notes Allied health notes reviewed: nursing
[2021-11-20] MEDS: fentaNYL DRIP Premix 2,000 MCG/100 ML BAG IV SCH (15:00)
[2021-11-20 15:52] LABS: ABG Base Excess -2.7 mmol/L (-2.0-3.0); ABG HCO3 22.7 mmol/L (20.0-26.0); ABG Methemoglobin 0.4 % (0.0-1.5); ABG Oxygen Saturation 96.6 % (95.0-99.0); ABG PCO2 41.6 mm Hg; ABG PH 7.354 pH Units (7.350-7.450); ABG PO2 85.2 mm Hg (80.0-90.0)
[2021-11-20] MEDS ORDERED: QUEtiapine 25 MG TAB PO ONE (16:00)
[2021-11-20] MEDS: PANTOPRAZOLE 40 MG INJ IV SCH (21:09)
[2021-11-20] MEDS: PRAVASTATIN 20 MG TAB PO SCH (21:09)
[2021-11-20] MEDS: QUEtiapine 25 MG TAB PO SCH (21:10)
[2021-11-21] MEDS: INSULIN LISPRO 100 UNIT/ML SUB-Q SCH ×4 (00:14→17:46)
[2021-11-21 05:19] LABS: Hematocrit 28.1 % (30.3-42.9); Hemoglobin 8.6 gm/dl (10.1-14.3); Mean Corpuscular HGB Conc 31 % (30-34); Mean Corpuscular Volume 86 fl (79-97); Platelet Count 200 K/mm3 (140-440); Red Blood Count 3.25 M/mm3 (3.65-5.03)
[2021-11-21 05:22] LABS: Red Cell Distribution Width 20.7 % (13.2-15.2)
[2021-11-21 05:40] LABS: Calcium 7.1 mg/dL (8.4-10.2)
[2021-11-21] MEDS: LEVOTHYROXINE 125 MCG TAB PO SCH (06:53)
[2021-11-21] MEDS: SUCRALFATE 1 GM/10 ML ORAL LIQD PO SCH ×3 (09:08→16:25)
[2021-11-21] MEDS: busPIRone 5 MG TAB PO SCH (09:08)
[2021-11-21] MEDS: PANTOPRAZOLE 40 MG INJ IV SCH (09:08)
[2021-11-21] MEDS: QUEtiapine 25 MG TAB PO SCH (09:08)
[2021-11-21] MEDS: DOCUSATE SODIUM 100 MG/10 ML ORAL LIQD PO SCH (09:09)
[2021-11-21] MEDS: SENNOSIDES ORAL LIQD 8.8 MG/5 ML ORAL LIQD PO SCH (09:09)
[2021-11-21] MEDS: POLYETHYLENE GLYCOL 3350 17 GM POWDER PO SCH (09:09)
--- NOTE | 2021-11-21 10:01 | Progress Note ---
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 She was found to be in respiratory distress, initially treated with NRB. Pt was also noted to be septic with radiographic evidence of bilateral PNA Acute Respiratory Failure Septic Shock GBS Bacteremia Bilateral Pneumonia Bilateral Pleural Effusions Right pneumothorax and s/p right chest tube Acute HFrEF DVT- s/p IVC filter Cardiomyopathy (EF reduced to 30-35% on echo this admission) NSVT Tn Elevation (?Type 2 [place] in the setting of hypoxia & shock) Anemia GI bleed CAD s/p PCI (2004) CHB s/p PPM ([facility]) Hypothyroidism H/o HTN H/o DM Arthritis Echo reviewed - EF 30-35%, mild diastolic dysfunction, RV mildly dilated, moderate MR, moderate TR, moderate pulmonary HTN w/RVSP 49mmHg, no pericardial effusion, large left pleural effusion. Plan: Unclear as to why patient was not on beta-charleen as an outpatient given cardiac history and the fact that she has PPM.due to patient having frequent PVCs on wed ito this a.m. Will initiate metoprolol 12.5 mg p.o. twice daily. May titrate up as needed Repeat EKG in the a.m. Not on ASA d/t allergy. Patient S/p IVC filter Continue statin Pt seen in conjunction with Dr. Rizo who agrees with the assessment and plan of care. - Patient Problems (1) Acute anemia Current Visit: Yes Status: Acute (2) Acute respiratory failure with hypoxia Current Visit: Yes Status: Acute (3) Bilateral pneumonia Current Visit: Yes Status: Acute Subjective Date of service: 11/21/21 Principal diagnosis: Septic shock; AHRF; Anemia; Pneumonia; L. pleural effusion; HFrEF; Pulm HTN Interval history: Patient remained intubated Sinus 80s on with frequent PVCs on monitor Objective Vital Signs Temp Pulse Pulse Resp BP Pulse Ox 11/21/21 09:00 76 18 130/56 97 11/21/21 08:30 79 16 122/54 96 11/21/21 08:01 84 22 150/71 98 11/21/21 08:00 76 76 21 98 11/21/21 07:51 89 123/56 92 11/21/21 07:30 75 23 123/56 96 11/21/21 07:00 76 20 133/61 97 11/21/21 06:30 76 20 123/55 95 11/21/21 06:00 75 21 133/60 95 11/21/21 05:30 73 25 H 133/55 96 11/21/21 05:00 77 21 127/57 94 11/21/21 04:30 74 17 119/62 98 11/21/21 04:14 72 119/62 97 11/21/21 04:00 97.7 F 73 69 11 L 119/62 100 11/21/21 03:30 71 16 109/56 98 11/21/21 03:00 70 16 111/57 99 11/21/21 02:30 70 15 112/60 99 11/21/21 02:00 69 15 105/55 98 11/21/21 01:30 69 16 105/52 99 11/21/21 01:00 70 14 105/52 100 11/21/21 00:30 71 14 127/62 100 11/21/21 00:07 70 113/62 100 11/21/21 00:00 97.4 F L 69 69 15 109/58 98 03 23:30 69 16 113/62 98 11/20/21 23:00 69 25 H 113/56 96 11/20/21 22:30 69 22 102/51 95 03 22:26 70 18 93/45 95 11/20/21 22:00 65 16 93/45 96 11/20/21 21:30 66 16 103/56 99 03 21:00 64 15 105/57 100 03 20:30 63 16 105/61 100 11/20/21 20:00 65 69 15 110/55 98 03 19:56 62 98/54 100 03 19:30 63 12 98/54 100 03 19:00 63 14 98/56 100 0203 18:30 63 14 93/52 100 11/20/21 18:00 62 12 101/51 98 03 17:30 62 14 90/45 96 11/20/21 17:27 90/54 0203 17:00 66 14 100 11/20/21 16:30 63 14 116/48 95 11/20/21 16:00 65 69 16 116/48 95 11/20/21 15:45 69 14 86/50 98 11/20/21 15:30 71 12 135/63 98 11/20/21 15:00 64 17 133/58 11/20/21 14:30 69 16 133/58 99 11/20/21 14:00 70 13 114/53 99 11/20/21 13:30 66 14 116/52 99 11/20/21 13:00 66 19 109/51 99 11/20/21 12:41 65 109/51 100 11/20/21 12:30 67 12 116/59 96 11/20/21 12:00 97.0 F L 68 12 107/52 11/20/21 11:30 68 15 107/57 97 11/20/21 11:28 67 11/20/21 11:27 67 15 95 11/20/21 11:00 69 13 91/44 92 11/20/21 10:30 74 18 129/59 98 11/20/21 10:00 75 13 145/72 98 - Physical Examination General: Other (intubated) HEENT: Positive: Normocephaly Neck: Positive: neck supple, trachea midline Cardiac: Positive: Reg Rate and Rhythm Lungs: Positive: Ventilated Respirations Neuro: Positive: Other (intubated) Abdomen: Positive: Soft Skin: Negative: Rash, Wound Musculoskeletal: No Fluid Collection Extremities: Present: lower extr. pulses, edema - Labs and Meds CBC 11/21/21 Range/Units 04:30 WBC 9.3 (4.5-11.0) K/mm3 RBC 3.25 L (3.65-5.03) M/mm3 Hgb 8.6 L (10.1-14.3) gm/dl Hct 28.1 L (30.3-42.9) % Plt Count 200 (140-440) K/mm3 Comprehensive Metabolic Panel 11/21/21 Range/Units 04:30 Sodium 134 L (137-145) mmol/L Potassium 4.4 D (3.6-5.0) mmol/L Chloride 106.2 (98-107) mmol/L Carbon Dioxide 20 L (22-30) mmol/L BUN 34 H (7-17) mg/dL Creatinine 0.9 (0.6-1.2) mg/dL Glucose 93 (65-100) mg/dL Calcium 7.1 L (8.4-10.2) mg/dL - Imaging and Cardiology EKG: report reviewed, image reviewed Stress echo: report reviewed Echo: report reviewed Cardiac cath: report reviewed - Telemetry EKG Rhythm: Sinus Rhythm - EKG Sinus rhythms and dysrhythmias: sinus rhythm Ventricular dysrhythmias: ventricular premature com - Allied health notes Allied health notes reviewed: nursing
[2021-11-21] MEDS: HYDROcodone/ACETAMINOPHEN 10-325MG TAB FEEDTUBE SCH ×2 (10:13→16:25)
[2021-11-21] MEDS: METOPROLOL TARTRATE 25 MG TAB PO SCH (10:13)
[2021-11-21] MEDS: fentaNYL DRIP Premix 2,000 MCG/100 ML BAG IV SCH (11:03)
--- NOTE | 2021-11-21 11:19 | Progress Note ---
<LONNIE MAURICE - Last Filed: 11/21/21 18:20> Assessment and Plan Assessment and plan: This is a 81-year-old female with known history of diabetes mellitus, hypertension, PPM, and arthritis admitted for sepsis and acute hypoxia respiratory failure 2/2 bilateral pneumonia requiring intubation and ventilatory support Hospital Course to date: 11/04/2021: Empiric therapy with iv levaquin/vancomycin. COVID PCR pending. Will consult ID. PCCM consulted, will follow recs. Hypotensive this AM, ordered bolus and fluids at 150 cc/hr. May require pressor support if bp does not improve. 11/05/2021: GBS on bcx +, currently on rocephin IV. Currently on bipap due to respiratory distress overnight. Worsening BL opacities on CXR. May be volume overload vs pneumonia. Unfortunately bp too low for lasix at this point. WIll continue levophed and bipap. Once able to tolerate, may do trial of albumin/lasi x. Call attempt made to Niraj, no response. Will try again tomorrow to update. 11/06/2021: Decompensated overnight requiring intubation. CXR shows worsening interstitial infiltrates. Currenlty on dopamine, levophed, vasopressin. PICC line ordered. Advised RN to place gamble for I/O monitoring. Would benefit from diuresis but very volume overloaded. Prognosis guarded 11/08: Off sedation this am, remains unresponsive only grimace to pain. Hold all sedatives agents for now, patient is off pressors this am. Hypernatremia from today's lab- D5W X1bag, and low K repleted, repeat lab in the am. Severe constipation also noted from KUB, BR added. 11/09: Sudden SPO2 drop in the 60s this am. Patient was manually bagged and deep suctioned. Patient is currently stable on the vent, repeat CXR with no significant change. D/w CCM Mucomyst and brochodilator added. Patient mentation is unchanged, continue to hold off on sedative agents. Neurology consulted. 11/10: Acute DVT noted on bilateral lower extremity Doppler ultrasound therefore she was started on Lovenox treatment dose. Failed SBT. Hypernatremia and hyperchloremia noted, free water flush adjusted. 11/11: Patient noted to be febrile with increasing of the cytosis, UA/BC sent and CXR ordered. ID escalated antibiotics to cefepime. CXR demonstrated mucous plug, bedside bronchoscopy was performed and O ETT was changed over bougie from 6 cm to 7.5. Patient was noted to have a pneumothorax postprocedure and chest tube was placed. Family updated by [facility]. Free water flush increased and will add Jaswant supplementation. 11/12: Patient not noted to follow commands, hypernatremia worsen/persist, increasing free water flush, potassium and magnesium and phosphorus repleted. Hemoglobin noted to be 7.1/24.5 from 7.03/12 yesterday. We will continue to trend and monitor. Vent changes per [facility]. Repeat CXR showed no residual pneumo thorax. Consider waterseal tomorrow. Given persistent leukocytosis antibiotics escalated to cefepime per ID. 11/13: Remains on cefepime and vancomycin, vent changes per [facility]. Anemia noted and given 1 unit PRBC. And beta-charleen held in setting of Levophed drip infusing. Remains on fentanyl drip. 11/14: Patient put on CPAP trial by [facility], will continue chest tube until after extubation. Will rest on assist control. CT brain was cancelled by [employer] and reordered. 11/15: Patient removed chest tube overnight. Will obtain cxr. remains on low dose levo. CTH completed with no acute findings. RT to place on CPAP. 11/16: Hypernatremia/hyperchloremia noted on the increase of day water flushes. Anemia noted and ordered PRBC. asked RT to place on cpap but not done yet 11/17: Patient remains on the vent, awake and following commands. H&H stable s/p 2units PRBCs. GI on consult, no intervention at this time. Will continue protonix gtt and serial H&H Q6hrs. Keep patient NPO for now, D5w added for hypernatremia and NPO status. Plan for IVC filter placement today by Vascular. 11/18: Patient is s/p IVC filter. H&H continue to trend down, hbg 6.1 this am, 1 unit of PRBCs ordered. Plan for possible EGD today by GI. Keep patient NPO, continue PPI drip and serial H&H Q6hrs. Electrolytes repleted, repeat lab in the am 11/19: S/p EGD- larger duodenal ulcer noted, see operative note. GI recommendat ions noted also noted. H&H stable this am. Keep patient on protonix gtt for now. Will keep patient NPO, continue IVF and serial H&H for now. Electrolytes repleted, repeat labs in the am 2/3: Very agitated and restless this am, fentanyl gtt resumed. Patient remains on protonix gtt, H&H remains stable. Will switch protonix gtt to IV BID, continue carafate and okay to resume meds at this time. Will F/u with GI to see if TF can be resumed. Gamble was reinserted overnight for retention. Electrolytes repleted, repeat in the am. Plan for possible PST today for possible extubation per [facility]. 11/21: Patient is now on seroquel and patient's home buspar resumed. Patient more calm this morning, fentanyl gtt is off. H&H remains stable and patient is tolerating TF. Patient had a runs of Vtach/PVCs this am, BB added per Cardio. Continue daily PS and wean trial for possible extubation. Assessment and Plan #Septic Shock POA #Bilateral Pneumonia #Bacteremia - Presented with fevers, leukocytosis, and hypotension - COVID PCR negative - 11/04 Bcult with 3/4 group B strep bacteremia - Repeat Bculture NGTD - 11/04 2D Echo with no evidence of vegetation - ID on consult, appreciate recommendations - Patient completed IV Abx course - F/u on culture data - Trend CBC #Acute Hypoxic Respiratory Failure 2/ #Right Pneumothorax #Bilateral Pleural Effusion #Bilateral Pneumonia - COVID PCR negative - CXR shows Bilateral opacities, may be volume overloaded - [facility] consulted, appreciate recommendations - Intubated on 11/06, ETT exchanged on 11/11 - 11/11 Bronchoscopy--Complicated by spontaneous pneumothorax - 11/11 S/p chest tube placement for right pneumothorax, removed by patient on 11/15 - 11/15 Repeat CXR with resolve Pneumo - This am Vent Setting:A/C-30%,6,14,400 - Today ABG pending - Plan for possible PST today for possible extubation per CCM - Continue Nebs treatment - VAP bundle addressed - Aspiration precaution HOB above 30 - ABG and CXR per CCM - Continue SPO2 monitoring for SPO2 goal above 92% #CHF- EF 30-35% with PPM #Hypotension-Resolved #Septic Kristian - Was on 3 pressors initially - BP remains stable - SR on the monitor, HR 70-90s - 11/04 Echo-EF 30-35% - Cardiology on consult - Continue beta-charleen - Not on aspirin due to allergy - Statins resumed - Continue blood pressure monitor per protocol - Maintain MAP above 65 #Acute Blood Loss #Acute GI Bleed #Acute Microcytic Anemia - Report of melena &black tarry stools - s/p a total of 5units of PRBCs since admit - H&H remains stable post EGD - GI on consult - 11/18 EGD- Large cratered ulcer in the posterior duodenal bulb about 2 cm in diameter. Visible vessel present. Mild active oozing from the ulcer bed. A total of 3 injections were performed around the ulcer for a total of 2.5 cc of dilute epinephrine and hemostasis was obtained.--> See full report - Protonix gtt switched to IV push BID - Continue Carafate - Patient is tolerating TF - Continue to trend CBC - Transfuse for H&H less than 7 - Hold AC for now #Hypokalemia #Hypernatremia-improved - Strict intake and output - Continue to monitor and replace electrolytes as needed - Trend BMP,mag, & phosp #Urinary Retention - Gamble reinserted on 11/19 for retention - Keep gamble for now, will reassess in 3 to 5days #Acute DVT in RLE - BLE doppler + Acute DVT in the right external iliac vein, common femoral vein, and superior aspect of femoral vein - Was on Therapeutic Lovenox- held to due GI Bleed - 11/17 s/p IVC filter placement by Vascular Surg #Agitation #Acute Encephalopathy-Resolved - Awake and agitated this am, following commands - Fentanyl gtt resumed, titrate for RASS goal of 0 to -1 - CT head noted - Neurology consulted - Resumed Buspar #Transaminitis/Shock Liver - Probably due to bacteria/spetic shock - Continue to Trend LFTs The high probability of a clinically significant, sudden or life threatening deterioration of the [multi] system(s) required my full and direct attention, intervention and personal management. The aggregate critical care time was [60] minutes. This time is in addition to time spent performing reported procedures but includes the following: [x] Data Review and interpretation [x] Patient assessment and monitoring of vital signs [x] Documentation [x] Medication orders and management Disposition Plan: ICU Total Time Spent with Patient (Minutes): 60 History Interval history: Patient seen and examined at the bedside. Patient remains on the vent. Appears drowsy this am , however awake and calm, still following commands. Off the fentanyl gtt. MARIA DEL CARMEN overnight Hospitalist Physical - Constitutional Vitals: Temp Pulse Resp BP Pulse Ox 98.4 F 92 H 21 133/76 91 11/21/21 08:00 11/21/21 11:01 11/21/21 11:01 11/21/21 11:01 11/21/21 11:01 General appearance: Present: no acute distress, other (On the vent) - EENT Eyes: Present: PERRL ENT: hearing intact - Neck Neck: Present: normal ROM - Respiratory Respiratory effort: normal Respiratory: bilateral: rhonchi - Cardiovascular Rhythm: regular Heart Sounds: Present: S1 & S2 - Extremities Extremities: no ischemia, pulses intact, pulses symmetrical Extremity abnormal: edema - Peripheral Assessment Generalized Edema Type: Pitting Edema Degree: 2+ Capillary Refill: < 3 seconds Skin Temperature: Warm Peripheral Pulses: within normal limits - Abdominal General gastrointestinal: soft, non-distended, normal bowel sounds - Integumentary Integumentary: Present: warm, dry - Psychiatric Psychiatric: appropriate mood/affect, cooperative, other (On the vent) - Neurologic Neurologic: moves all extremities, other (On the vent) - Allied Health Allied health notes reviewed: nursing HEART Score - HEART Score Troponin: Troponin T 0.033 ng/mL (0.00-0.029) H 11/05/21 06:11 Results - Labs CBC & Chem 7: 11/21/21 04:30 11/21/21 04:30 Labs: Laboratory Last Values WBC 9.3 K/mm3 (4.5-11.0) 11/21/21 04:30 RBC 3.25 M/mm3 (3.65-5.03) L 11/21/21 04:30 Hgb 8.6 gm/dl (10.1-14.3) L 11/21/21 04:30 Hct 28.1 % (30.3-42.9) L 11/21/21 04:30 MCV 86 fl (79-97) 11/21/21 04:30 MCH 26 pg (28-32) L 11/21/21 04:30 MCHC 31 % (30-34) 11/21/21 04:30 RDW 20.7 % (13.2-15.2) H 11/21/21 04:30 Plt Count 200 K/mm3 (140-440) 11/21/21 04:30 Add Manual Diff Complete 11/16/21 15:25 Total Counted 100 11/16/21 15:25 Seg Neutrophils % Alarm Signal Operator 11/06/21 15:50 Seg Neuts % (Manual) 87.0 % (40.0-70.0) H 11/16/21 15:25 Band Neutrophils % 0 % 11/16/21 15:25 Lymphocytes % (Manual) 8.0 % (13.4-35.0) L 11/16/21 15:25 Reactive Lymphs % (Man) 0 % 11/16/21 15:25 Monocytes % (Manual) 5.0 % (0.0-7.3) 11/16/21 15:25 Eosinophils % (Manual) 0 % (0.0-4.3) 11/16/21 15:25 Basophils % (Manual) 0 % (0.0-1.8) 11/16/21 15:25 Metamyelocytes % 0 % 11/16/21 15:25 Myelocytes % 0 % 11/16/21 15:25 Promyelocytes % 0 % 11/16/21 15:25 Blast Cells % 0 % 11/16/21 15:25 Nucleated RBC % Not Reportable 11/16/21 15:25 Seg Neutrophils # Man 15.0 K/mm3 (1.8-7.7) H 11/16/21 15:25 Band Neutrophils # 0.0 K/mm3 11/16/21 15:25 Lymphocytes # (Manual) 1.4 K/mm3 (1.2-5.4) 11/16/21 15:25 Abs React Lymphs (Man) 0.0 K/mm3 11/16/21 15:25 Monocytes # (Manual) 0.9 K/mm3 (0.0-0.8) H 11/16/21 15:25 Eosinophils # (Manual) 0.0 K/mm3 (0.0-0.4) 11/16/21 15:25 Basophils # (Manual) 0.0 K/mm3 (0.0-0.1) 11/16/21 15:25 Metamyelocytes # 0.0 K/mm3 11/16/21 15:25 Myelocytes # 0.0 K/mm3 11/16/21 15:25 Promyelocytes # 0.0 K/mm3 11/16/21 15:25 Blast Cells # 0.0 K/mm3 11/16/21 15:25 WBC Morphology Not Reportable 11/16/21 15:25 Hypersegmented Neuts Not Reportable 11/16/21 15:25 Hyposegmented Neuts Not Reportable 11/16/21 15:25 Hypogranular Neuts Not Reportable 11/16/21 15:25 Smudge Cells Not Reportable 11/16/21 15:25 Toxic Granulation Not Reportable 11/16/21 15:25 Toxic Vacuolation Not Reportable 11/16/21 15:25 Dohle Bodies Not Reportable 11/16/21 15:25 Pelger-Huet Anomaly Not Reportable 11/16/21 15:25 Irina Rods Not Reportable 11/16/21 15:25 Platelet Estimate Consistent w auto 11/16/21 15:25 Clumped Platelets Rare 11/16/21 15:25 Plt Clumps, EDTA Not Reportable 11/16/21 15:25 Large Platelets Not Reportable 11/16/21 15:25 Giant Platelets Not Reportable 11/16/21 15:25 Platelet Satelliting Not Reportable 11/16/21 15:25 Plt Morphology Comment Not Reportable 11/16/21 15:25 RBC Morphology Not Reportable 11/16/21 15:25 Dimorphic RBCs Not Reportable 11/16/21 15:25 Polychromasia Not Reportable 11/16/21 15:25 Hypochromasia 2+ 11/16/21 15:25 Poikilocytosis Not Reportable 11/16/21 15:25 Anisocytosis 2+ 11/16/21 15:25 Microcytosis Not Reportable 11/16/21 15:25 Macrocytosis Not Reportable 11/16/21 15:25 Spherocytes Not Reportable 11/16/21 15:25 Pappenheimer Bodies Not Reportable 11/16/21 15:25 Sickle Cells Not Reportable 11/16/21 15:25 Target Cells 2+ 11/16/21 15:25 Tear Drop Cells Not Reportable 11/16/21 15:25 Ovalocytes Not Reportable 11/16/21 15:25 Helmet Cells Not Reportable 11/16/21 15:25 [place] Bodies Not Reportable 11/16/21 15:25 Banning Rings Not Reportable 11/16/21 15:25 Samaria Cells Not Reportable 11/16/21 15:25 Bite Cells Not Reportable 11/16/21 15:25 Crenated Cell Not Reportable 11/16/21 15:25 Elliptocytes Not Reportable 11/16/21 15:25 Acanthocytes (Spur) Not Reportable 11/16/21 15:25 Rouleaux Not Reportable 11/16/21 15:25 Hemoglobin C Crystals Not Reportable 11/16/21 15:25 Schistocytes Not Reportable 11/16/21 15:25 Malaria parasites Not Reportable 11/16/21 15:25 Godfrey Bodies Not Reportable 11/16/21 15:25 Hem Pathologist Commnt No 11/16/21 15:25 PT 18.6 Sec. (12.2-14.9) H 11/03/21 22:32 INR 1.40 (0.87-1.13) H 11/03/21 22:32 APTT 28.9 Sec. (24.2-36.6) 11/03/21 22:32 D-Dimer 2655.00 ng/mlDDU (0-234) H 11/11/21 04:28 ABG pH 7.354 pH Units (7.350-7.450) 11/20/21 Unknown ABG pCO2 41.6 mm Hg 11/20/21 Unknown ABG pO2 85.2 mm Hg (80.0-90.0) 11/20/21 Unknown ABG HCO3 22.7 mmol/L (20.0-26.0) 11/20/21 Unknown ABG O2 Saturation 96.6 % (95.0-99.0) 11/20/21 Unknown ABG O2 Content 12.7 (0.0-44) 11/20/21 Unknown ABG Base Excess -2.7 mmol/L (-2.0-3.0) L 11/20/21 Unknown ABG Hemoglobin 9.5 gm/dl (12.0-16.0) L 11/20/21 Unknown ABG Carboxyhemoglobin 1.9 % (0.0-5.0) 11/20/21 Unknown ABG Methemoglobin 0.4 % (0.0-1.5) 11/20/21 Unknown Oxyhemoglobin 94.3 % (95.0-99.0) L 11/20/21 Unknown FiO2 30 % 11/20/21 Unknown Sodium 134 mmol/L (137-145) L 11/21/21 04:30 Potassium 4.4 mmol/L (3.6-5.0) D 11/21/21 04:30 Chloride 106.2 mmol/L (98-107) 11/21/21 04:30 Carbon Dioxide 20 mmol/L (22-30) L 11/21/21 04:30 Anion Gap 12 mmol/L 11/21/21 04:30 BUN 34 mg/dL (7-17) H 11/21/21 04:30 Creatinine 0.9 mg/dL (0.6-1.2) 11/21/21 04:30 Estimated GFR 60 ml/min 11/21/21 04:30 BUN/Creatinine Ratio 38 % 11/21/21 04:30 Glucose 93 mg/dL (65-100) 11/21/21 04:30 POC Glucose 89 mg/dL (70-105) 11/21/21 11:02 Lactic Acid 3.70 mmol/L (0.7-2.0) H* 11/03/21 22:32 Calcium 7.1 mg/dL (8.4-10.2) L 11/21/21 04:30 Phosphorus 3.30 mg/dL (2.5-4.5) 11/21/21 04:30 Magnesium 1.90 mg/dL (1.7-2.3) 11/21/21 04:30 Ferritin 52.6 ng/mL (10.0-200.0) 11/05/21 06:11 Total Bilirubin 0.50 mg/dL (0.1-1.2) 11/17/21 05:56 Direct Bilirubin < 0.2 mg/dL (0-0.2) 11/11/21 04:28 Indirect Bilirubin 0.1 mg/dL 11/11/21 04:28 AST 36 units/L (5-40) 11/17/21 05:56 ALT 47 units/L (7-56) 11/17/21 05:56 Alkaline Phosphatase 107 units/L (35-129) 11/17/21 05:56 Ammonia 42.0 umol/L (25-60) 11/10/21 14:08 Lactate Dehydrogenase 187 units/L (91-180) H 11/05/21 06:11 Troponin T 0.033 ng/mL (0.00-0.029) H 11/05/21 06:11 C-Reactive Protein 22.20 mg/dL (0.00-1.30) H 11/05/21 06:11 NT-Pro-B Natriuret Pep 7895 pg/mL (0-900) H 11/03/21 22:32 Total Protein 5.1 g/dL (6.3-8.2) L 11/17/21 05:56 Albumin 2.2 g/dL (3.9-5) L 11/17/21 05:56 Albumin/Globulin Ratio 0.8 % 11/17/21 05:56 Triglycerides 66 mg/dL (2-149) 11/03/21 22:32 Cholesterol 80 mg/dL (50-199) 11/03/21 22:32 LDL Cholesterol Direct 34 mg/dL (50-130) L 11/03/21 22:32 HDL Cholesterol 42 mg/dL (40-59) 11/03/21 22:32 Cholesterol/HDL Ratio 1.90 % 11/03/21 22:32 Vitamin B12 1823 pg/mL (211-911) H 11/10/21 14:08 TSH 1.510 mlU/mL (0.270-4.200) 11/10/21 14:08 Urine Color Yellow (Yellow) 11/11/21 09:00 Urine Turbidity Slightly-cloudy (Clear) 11/11/21 09:00 Urine pH 5.0 (5.0-7.0) 11/11/21 09:00 Ur Specific [place] 1.009 (1.003-1.030) 11/11/21 09:00 Urine Protein <15 mg/dl mg/dL (Negative) 11/11/21 09:00 Urine Glucose (UA) Neg mg/dL (Negative) 11/11/21 09:00 Urine Ketones Neg mg/dL (Negative) 11/11/21 09:00 Urine Blood Mod (Negative) 11/11/21 09:00 Urine Nitrite Neg (Negative) 11/11/21 09:00 Urine Bilirubin Neg (Negative) 11/11/21 09:00 Urine Urobilinogen < 2.0 mg/dL (<2.0) 11/11/21 09:00 Ur Leukocyte Esterase Neg (Negative) 11/11/21 09:00 Urine WBC (Auto) < 1.0 /HPF (0.0-6.0) 11/11/21 09:00 Urine RBC (Auto) < 1.0 /HPF (0.0-6.0) 11/11/21 09:00 Coronavirus (PCR) Negative (Negative) 11/10/21 08:30 Blood Type O POSITIVE 11/18/21 10:45 Antibody Screen Negative 11/18/21 10:45 Crossmatch See Detail 11/18/21 10:45 Gamble/IV: Voiding Method Incontinent Active Medications - Current Medications Current Medications: Generic Name Dose Route Start Last Admin Trade Name Freq PRN Reason Stop Dose Admin Acetaminophen 650 mg 11/04/21 02:03 11/16/21 15:43 Acetaminophen 325 Mg Tab PO 650 mg Q6H PRN Administration Pain MILD(1-3)/Fever >100.5/RODRIGUEZ Hydrocodone Bitart/Acetaminophen 1 each 11/21/21 10:00 11/21/21 10:13 Hydrocodone/Acetaminophen 10-325mg Tab FEEDTUBE 1 each TID YOSSI Administration Lipase/Protease/Amylase 1 each 11/08/21 11:09 Lipase 10,500/Protease 25,000/Amylase 43,750 (Units) Dr Lema FEEDTUBE PRN PRN For Clogged Feeding Tube Buspirone HCl 7.5 mg 11/17/21 22:00 11/21/21 09:08 Buspirone 5 Mg Tab PO 7.5 mg BID YOSSI Administration Dextrose 0 ml 11/10/21 10:52 11/20/21 12:37 Dextrose 10% *Hypoglycemia IV 50 ml PRN PRN Administration Hypoglycemia Docusate Sodium 100 mg 11/08/21 12:00 11/21/21 09:09 Docusate Sodium 100 Mg/10 Ml Oral Liqd PO Not Given BID YOSSI Fentanyl 1 applic 11/17/21 13:00 11/20/21 09:07 Fentanyl 25 Mcg/Hr Patch 72hr TD 1 applic Q3D YOSSI Administration Fentanyl 25 mcg 11/19/21 18:09 11/20/21 07:05 Fentanyl 100 Mcg/2 Ml Inj IV 11/21/21 18:08 25 mcg Q2HR PRN Administration Pain, Moderate (4-6) Hydrophilic Ointment 1 applic 11/06/21 04:02 Lip Therapy Vaseline TP Q2HR PRN Dry Lips NORepinephrine/NS 8 MG-250 ML 8 mg in 250 mls @ 3.75 mls/hr 11/05/21 09:00 11/18/21 03:26 Norepinephrine/Ns 8 Mg-250 Ml (Double Conc) IV 0 mcg/min TITRATE YOSSI 0 mls/hr Titration Protocol 2 MCG/MIN Fentanyl Citrate 2,000 mcg in 100 mls @ 3.12 mls/hr 11/17/21 13:00 11/21/21 11:03 Fentanyl Drip Premix IV 1 mcg/kg/hr TITR YOSSI 3.12 mls/hr Administration Protocol 1 MCG/KG/HR Insulin Human Lispro 0 unit 11/06/21 12:00 11/21/21 11:07 Insulin Lispro 100 Unit/Ml SUB-Q Not Given Q6HR [facility] Protocol Levothyroxine Sodium 125 mcg 11/05/21 07:00 11/21/21 06:53 Levothyroxine 125 Mcg Tab PO 125 mcg DAILY@0600 [facility] Administration Magnesium Hydroxide 30 ml 11/04/21 02:03 Magnesium Hydroxide (Mom) Oral Liqd Udc PO Q4H PRN Constipation Metoprolol Tartrate 12.5 mg 11/21/21 10:00 11/21/21 10:13 Metoprolol Tartrate 25 Mg Tab PO 12.5 mg BID [facility] Administration Multi-Ingred Cream/Lotion/Oil/Oint 1 applic 11/06/21 04:02 Mineral Oil/Petrolatum, White Ophth Oint 3.5 Gm OU Q4HR PRN Dry Eye(s) Ondansetron HCl 4 mg 11/04/21 02:03 11/05/21 15:48 Ondansetron 4 Mg/2 Ml Inj IV 4 mg Q8H PRN Administration Nausea And Vomiting Pantoprazole Sodium 40 mg 11/20/21 22:00 11/21/21 09:08 Pantoprazole 40 Mg Inj IV 40 mg BID [facility] Administration Polyethylene Glycol 17 gm 11/08/21 12:00 11/21/21 09:09 Polyethylene Glycol 3350 17 Gm Powder PO Not Given QDAY YOSSI Pravastatin Sodium 20 mg 11/18/21 22:00 11/20/21 21:09 Pravastatin 20 Mg Tab PO 20 mg QHS YOSSI Administration Quetiapine Fumarate 50 mg 11/20/21 22:00 11/21/21 09:08 Quetiapine 25 Mg Tab PO 50 mg BID YOSSI Administration Senna 17.6 mg 11/08/21 22:00 11/21/21 09:09 Sennosides Oral Liqd 8.8 Mg/5 Ml Oral Liqd PO Not Given Q12HR YOSSI Simple Syrup 15 ml 11/08/21 11:09 Simple Syrup 15 Ml FEEDTUBE PRN PRN Hypoglycemia Simple Syrup 30 ml 11/08/21 11:09 Simple Syrup 15 Ml FEEDTUBE PRN PRN Hypoglycemia Sodium Bicarbonate 325 mg 11/08/21 11:09 Sodium Bicarbonate 325 Mg Tab FEEDTUBE PRN PRN For Clogged Feeding Tube Sodium Chloride 10 ml 11/04/21 10:00 11/21/21 09:09 Sodium Chloride 0.9% 10 Ml Flush Syringe IV 10 ml BID YOSSI Administration Sodium Chloride 10 ml 11/04/21 02:03 Sodium Chloride 0.9% 10 Ml Flush Syringe IV PRN PRN LINE FLUSH Sodium Chloride 10 ml 11/10/21 09:57 11/17/21 20:47 Sodium Chloride 0.9% 50 Ml Ivpb IV 10 ml PRN PRN Administration FLUSH Sucralfate 1 gm 11/18/21 16:30 11/21/21 09:08 Sucralfate 1 Gm/10 Ml Oral Liqd PO 1 gm ACHS YOSSI Administration Nutrition/Malnutrition Assess - Dietary Evaluation Nutrition/Malnutrition Findings: Nutrition Notes Start: 11/04/21 17:16 Freq: Status: Active Protocol: Document 11/20/21 15:54 ISABELL (Rec: 11/20/21 16:31 ISABELL [id number]) Nutrition Notes Initial or Follow up Reassessment Current Diagnosis Decubitus(Pressure Ulcer), Diabetes,Sepsis,Hypertension, Respiratory Failure Other Pertinent Diagnosis Septic shock, Bilateral Pneumonia, Lower Extremity Cellulitis. Current Diet TF-Glucerna 1.2 Tamir @ 42 ml/hr (since D 11/20). Labs/Tests 11/20: K 3.5, Cl 108.9, BUN 37 , Glu 117. Pertinent Medications 11/20: D5w 1000 ml @ 75 ml/hr, others nutritionally unremarkable. Height 5 ft Weight 62.4 kg [place] Body Weight (kg) 45.45 BMI 26.9 Weight change and time frame No body weight change reported . Weight Status Appropriate Subjective/Other Information RD consult for routine F/U on TF resume. Pt continues on mechanical ventilation. MD indication to Resume TF. Percent of energy/protein needs met: Prescribed Glucerna 1.2 Tamir @ 42 ml/hr provides for energy/ protein needs (1,208 Kcal/60 g ) during LOS, 100% Kcal; 81% AA. Burn Absent Trauma Absent GI Symptoms Diarrhea Difficulty In Swallowing,Chewing Food Allergy No Skin Integrity/Comment Lower Extremities Pressure Ulcer. Current % PO Other Minimum of two criteria No #1 Nutrition Diagnosis Inadequate oral intake Comments: Pt continues on mechanical ventilation. MD indication to Resume TF. Diagnosis Progress(for reassessment Continues documentation) Is patient on ventilator? Yes Is Patient Ambulatory and/or Out of Bed No REE-([facility]-confined to bed) 1207.824 Calculation Used for Recommendations [facility] Additional Notes Protein: 1.2-2 g/Kg; 75-125 g/ day. Fluids: 1 ml/Kcal, or as per MD. Nutrition Intervention Nutrition Support: Start Glucerna 1.2 Tamir @ 42 ml /hr. Flush: 70 ml water Q 4 hr, or as per MD. Kcal 1,208 Protein (gm) 60 Carbohydrates (gm) 115 Fat (gm) 60 Fluid (mL) 810 Fiber (gm) 16 % RDI: 100% Kcal; 81% AA. Goal #1 Provide at least 75% of energy /protein needs through Enteral Feeding during LOS. Goal #2 Maintain body weight within +/ -3% of admission body weight during LOS. Follow-Up By: 11/24/21 Additional Comments Continue monitoring TF tolerance and BM. <LEAH ALFONSO - Last Filed: 11/22/21 07:36> Assessment and Plan Assessment and plan: I saw and evaluated the patient. I agree with the findings and the plan of care as documented in the Nurse Practitioner's~note, with the following corrections and additions. Hospitalist Physical - Constitutional Vitals: Temp Pulse Resp BP Pulse Ox 99.0 F 77 14 104/53 99 11/22/21 04:00 11/22/21 04:30 11/22/21 04:30 11/22/21 04:30 11/22/21 04:30 HEART Score - HEART Score Troponin: Troponin T 0.033 ng/mL (0.00-0.029) H 11/05/21 06:11 Results - Labs CBC & Chem 7: 11/21/21 04:30 11/21/21 04:30 Labs: Laboratory Last Values WBC 9.3 K/mm3 (4.5-11.0) 11/21/21 04:30 RBC 3.25 M/mm3 (3.65-5.03) L 11/21/21 04:30 Hgb 8.6 gm/dl (10.1-14.3) L 11/21/21 04:30 Hct 28.1 % (30.3-42.9) L 11/21/21 04:30 MCV 86 fl (79-97) 11/21/21 04:30 MCH 26 pg (28-32) L 11/21/21 04:30 MCHC 31 % (30-34) 11/21/21 04:30 RDW 20.7 % (13.2-15.2) H 11/21/21 04:30 Plt Count 200 K/mm3 (140-440) 11/21/21 04:30 Add Manual Diff Complete 11/16/21 15:25 Total Counted 100 11/16/21 15:25 Seg Neutrophils % Alarm Signal Operator 11/06/21 15:50 Seg Neuts % (Manual) 87.0 % (40.0-70.0) H 11/16/21 15:25 Band Neutrophils % 0 % 11/16/21 15:25 Lymphocytes % (Manual) 8.0 % (13.4-35.0) L 11/16/21 15:25 Reactive Lymphs % (Man) 0 % 11/16/21 15:25 Monocytes % (Manual) 5.0 % (0.0-7.3) 11/16/21 15:25 Eosinophils % (Manual) 0 % (0.0-4.3) 11/16/21 15:25 Basophils % (Manual) 0 % (0.0-1.8) 11/16/21 15:25 Metamyelocytes % 0 % 11/16/21 15:25 Myelocytes % 0 % 11/16/21 15:25 Promyelocytes % 0 % 11/16/21 15:25 Blast Cells % 0 % 11/16/21 15:25 Nucleated RBC % Not Reportable 11/16/21 15:25 Seg Neutrophils # Man 15.0 K/mm3 (1.8-7.7) H 11/16/21 15:25 Band Neutrophils # 0.0 K/mm3 11/16/21 15:25 Lymphocytes # (Manual) 1.4 K/mm3 (1.2-5.4) 11/16/21 15:25 Abs React Lymphs (Man) 0.0 K/mm3 11/16/21 15:25 Monocytes # (Manual) 0.9 K/mm3 (0.0-0.8) H 11/16/21 15:25 Eosinophils # (Manual) 0.0 K/mm3 (0.0-0.4) 11/16/21 15:25 Basophils # (Manual) 0.0 K/mm3 (0.0-0.1) 11/16/21 15:25 Metamyelocytes # 0.0 K/mm3 11/16/21 15:25 Myelocytes # 0.0 K/mm3 11/16/21 15:25 Promyelocytes # 0.0 K/mm3 11/16/21 15:25 Blast Cells # 0.0 K/mm3 11/16/21 15:25 WBC Morphology Not Reportable 11/16/21 15:25 Hypersegmented Neuts Not Reportable 11/16/21 15:25 Hyposegmented Neuts Not Reportable 11/16/21 15:25 Hypogranular Neuts Not Reportable 11/16/21 15:25 Smudge Cells Not Reportable 11/16/21 15:25 Toxic Granulation Not Reportable 11/16/21 15:25 Toxic Vacuolation Not Reportable 11/16/21 15:25 Dohle Bodies Not Reportable 11/16/21 15:25 Pelger-Huet Anomaly Not Reportable 11/16/21 15:25 Irina Rods Not Reportable 11/16/21 15:25 Platelet Estimate Consistent w auto 11/16/21 15:25 Clumped Platelets Rare 11/16/21 15:25 Plt Clumps, EDTA Not Reportable 11/16/21 15:25 Large Platelets Not Reportable 11/16/21 15:25 Giant Platelets Not Reportable 11/16/21 15:25 Platelet Satelliting Not Reportable 11/16/21 15:25 Plt Morphology Comment Not Reportable 11/16/21 15:25 RBC Morphology Not Reportable 11/16/21 15:25 Dimorphic RBCs Not Reportable 11/16/21 15:25 Polychromasia Not Reportable 11/16/21 15:25 Hypochromasia 2+ 11/16/21 15:25 Poikilocytosis Not Reportable 11/16/21 15:25 Anisocytosis 2+ 11/16/21 15:25 Microcytosis Not Reportable 11/16/21 15:25 Macrocytosis Not Reportable 11/16/21 15:25 Spherocytes Not Reportable 11/16/21 15:25 Pappenheimer Bodies Not Reportable 11/16/21 15:25 Sickle Cells Not Reportable 11/16/21 15:25 Target Cells 2+ 11/16/21 15:25 Tear Drop Cells Not Reportable 11/16/21 15:25 Ovalocytes Not Reportable 11/16/21 15:25 Helmet Cells Not Reportable 11/16/21 15:25 [place] Bodies Not Reportable 11/16/21 15:25 Banning Rings Not Reportable 11/16/21 15:25 Samaria Cells Not Reportable 11/16/21 15:25 Bite Cells Not Reportable 11/16/21 15:25 Crenated Cell Not Reportable 11/16/21 15:25 Elliptocytes Not Reportable 11/16/21 15:25 Acanthocytes (Spur) Not Reportable 11/16/21 15:25 Rouleaux Not Reportable 11/16/21 15:25 Hemoglobin C Crystals Not Reportable 11/16/21 15:25 Schistocytes Not Reportable 11/16/21 15:25 Malaria parasites Not Reportable 11/16/21 15:25 Godfrey Bodies Not Reportable 11/16/21 15:25 Hem Pathologist Commnt No 11/16/21 15:25 PT 18.6 Sec. (12.2-14.9) H 11/03/21 22:32 INR 1.40 (0.87-1.13) H 11/03/21 22:32 APTT 28.9 Sec. (24.2-36.6) 11/03/21 22:32 D-Dimer 2655.00 ng/mlDDU (0-234) H 11/11/21 04:28 ABG pH 7.449 pH Units (7.350-7.450) 11/21/21 16:00 ABG pCO2 32.1 mm Hg 11/21/21 16:00 ABG pO2 114.2 mm Hg (80.0-90.0) H 11/21/21 16:00 ABG HCO3 21.8 mmol/L (20.0-26.0) 11/21/21 16:00 ABG O2 Saturation 98.3 % (95.0-99.0) 11/21/21 16:00 ABG O2 Content 12.5 (0.0-44) 11/21/21 16:00 ABG Base Excess -1.7 mmol/L (-2.0-3.0) 11/21/21 16:00 ABG Hemoglobin 9.1 gm/dl (12.0-16.0) L 11/21/21 16:00 ABG Carboxyhemoglobin 1.9 % (0.0-5.0) 11/21/21 16:00 ABG Methemoglobin 0.5 % (0.0-1.5) 11/21/21 16:00 Oxyhemoglobin 96.0 % (95.0-99.0) 11/21/21 16:00 FiO2 30 % 11/21/21 16:00 Sodium 134 mmol/L (137-145) L 11/21/21 04:30 Potassium 4.4 mmol/L (3.6-5.0) D 11/21/21 04:30 Chloride 106.2 mmol/L (98-107) 11/21/21 04:30 Carbon Dioxide 20 mmol/L (22-30) L 11/21/21 04:30 Anion Gap 12 mmol/L 11/21/21 04:30 BUN 34 mg/dL (7-17) H 11/21/21 04:30 Creatinine 0.9 mg/dL (0.6-1.2) 11/21/21 04:30 Estimated GFR 60 ml/min 11/21/21 04:30 BUN/Creatinine Ratio 38 % 11/21/21 04:30 Glucose 93 mg/dL (65-100) 11/21/21 04:30 POC Glucose 91 mg/dL (70-105) 11/22/21 05:45 Lactic Acid 3.70 mmol/L (0.7-2.0) H* 11/03/21 22:32 Calcium 7.1 mg/dL (8.4-10.2) L 11/21/21 04:30 Phosphorus 3.30 mg/dL (2.5-4.5) 11/21/21 04:30 Magnesium 1.90 mg/dL (1.7-2.3) 11/21/21 04:30 Ferritin 52.6 ng/mL (10.0-200.0) 11/05/21 06:11 Total Bilirubin 0.50 mg/dL (0.1-1.2) 11/17/21 05:56 Direct Bilirubin < 0.2 mg/dL (0-0.2) 11/11/21 04:28 Indirect Bilirubin 0.1 mg/dL 11/11/21 04:28 AST 36 units/L (5-40) 11/17/21 05:56 ALT 47 units/L (7-56) 11/17/21 05:56 Alkaline Phosphatase 107 units/L (35-129) 11/17/21 05:56 Ammonia 42.0 umol/L (25-60) 11/10/21 14:08 Lactate Dehydrogenase 187 units/L (91-180) H 11/05/21 06:11 Troponin T 0.033 ng/mL (0.00-0.029) H 11/05/21 06:11 C-Reactive Protein 22.20 mg/dL (0.00-1.30) H 11/05/21 06:11 NT-Pro-B Natriuret Pep 7895 pg/mL (0-900) H 11/03/21 22:32 Total Protein 5.1 g/dL (6.3-8.2) L 11/17/21 05:56 Albumin 2.2 g/dL (3.9-5) L 11/17/21 05:56 Albumin/Globulin Ratio 0.8 % 11/17/21 05:56 Triglycerides 66 mg/dL (2-149) 11/03/21 22:32 Cholesterol 80 mg/dL (50-199) 11/03/21 22:32 LDL Cholesterol Direct 34 mg/dL (50-130) L 11/03/21 22:32 HDL Cholesterol 42 mg/dL (40-59) 11/03/21 22:32 Cholesterol/HDL Ratio 1.90 % 11/03/21 22:32 Vitamin B12 1823 pg/mL (211-911) H 11/10/21 14:08 TSH 1.510 mlU/mL (0.270-4.200) 11/10/21 14:08 Urine Color Yellow (Yellow) 11/11/21 09:00 Urine Turbidity Slightly-cloudy (Clear) 11/11/21 09:00 Urine pH 5.0 (5.0-7.0) 11/11/21 09:00 Ur Specific [place] 1.009 (1.003-1.030) 11/11/21 09:00 Urine Protein <15 mg/dl mg/dL (Negative) 11/11/21 09:00 Urine Glucose (UA) Neg mg/dL (Negative) 11/11/21 09:00 Urine Ketones Neg mg/dL (Negative) 11/11/21 09:00 Urine Blood Mod (Negative) 11/11/21 09:00 Urine Nitrite Neg (Negative) 11/11/21 09:00 Urine Bilirubin Neg (Negative) 11/11/21 09:00 Urine Urobilinogen < 2.0 mg/dL (<2.0) 11/11/21 09:00 Ur Leukocyte Esterase Neg (Negative) 11/11/21 09:00 Urine WBC (Auto) < 1.0 /HPF (0.0-6.0) 11/11/21 09:00 Urine RBC (Auto) < 1.0 /HPF (0.0-6.0) 11/11/21 09:00 Coronavirus (PCR) Negative (Negative) 11/10/21 08:30 Blood Type O POSITIVE 11/18/21 10:45 Antibody Screen Negative 11/18/21 10:45 Crossmatch See Detail 11/18/21 10:45 Gamble/IV: Voiding Method Incontinent Active Medications - Current Medications Current Medications: Generic Name Dose Route Start Last Admin Trade Name Freq PRN Reason Stop Dose Admin Acetaminophen 650 mg 11/04/21 02:03 11/16/21 15:43 Acetaminophen 325 Mg Tab PO 650 mg Q6H PRN Administration Pain MILD(1-3)/Fever >100.5/RODRIGUEZ Hydrocodone Bitart/Acetaminophen 1 each 11/21/21 10:00 11/22/21 00:10 Hydrocodone/Acetaminophen 10-325mg Tab FEEDTUBE 1 each TID YOSSI Administration Lipase/Protease/Amylase 1 each 11/08/21 11:09 Lipase 10,500/Protease 25,000/Amylase 43,750 (Units) Dr Cap FEEDTUBE PRN PRN For Clogged Feeding Tube Buspirone HCl 7.5 mg 11/17/21 22:00 11/22/21 00:11 Buspirone 5 Mg Tab PO 7.5 mg BID YOSSI Administration Dextrose 0 ml 11/10/21 10:52 11/21/21 16:27 Dextrose 10% *Hypoglycemia IV 50 ml PRN PRN Administration Hypoglycemia Docusate Sodium 100 mg 11/08/21 12:00 11/22/21 00:10 Docusate Sodium 100 Mg/10 Ml Oral Liqd PO 100 mg BID YOSSI Administration Fentanyl 1 applic 11/17/21 13:00 11/20/21 09:07 Fentanyl 25 Mcg/Hr Patch 72hr TD 1 applic Q3D YOSSI Administration Hydrophilic Ointment 1 applic 11/06/21 04:02 Lip Therapy Vaseline TP Q2HR PRN Dry Lips NORepinephrine/NS 8 MG-250 ML 8 mg in 250 mls @ 3.75 mls/hr 11/05/21 09:00 11/18/21 03:26 Norepinephrine/Ns 8 Mg-250 Ml (Double Conc) IV 0 mcg/min TITRATE YOSSI 0 mls/hr Titration Protocol 2 MCG/MIN Fentanyl Citrate 2,000 mcg in 100 mls @ 3.12 mls/hr 11/17/21 13:00 11/21/21 17:45 Fentanyl Drip Premix IV 1 mcg/kg/hr TITR YOSSI 3.12 mls/hr Titration Protocol 1 MCG/KG/HR Insulin Human Lispro 0 unit 11/06/21 12:00 11/22/21 06:45 Insulin Lispro 100 Unit/Ml SUB-Q Not Given Q6HR YOSSI Protocol Levothyroxine Sodium 125 mcg 11/05/21 07:00 11/22/21 07:10 Levothyroxine 125 Mcg Tab PO 125 mcg DAILY@0600 YOSSI Administration Magnesium Hydroxide 30 ml 11/04/21 02:03 Magnesium Hydroxide (Mom) Oral Liqd Udc PO Q4H PRN Constipation Metoprolol Tartrate 12.5 mg 11/21/21 10:00 11/22/21 00:10 Metoprolol Tartrate 25 Mg Tab PO 12.5 mg BID YOSSI Administration Multi-Ingred Cream/Lotion/Oil/Oint 1 applic 11/06/21 04:02 Mineral Oil/Petrolatum, White Ophth Oint 3.5 Gm OU Q4HR PRN Dry Eye(s) Ondansetron HCl 4 mg 11/04/21 02:03 11/05/21 15:48 Ondansetron 4 Mg/2 Ml Inj IV 4 mg Q8H PRN Administration Nausea And Vomiting Pantoprazole Sodium 40 mg 11/20/21 22:00 11/22/21 00:16 Pantoprazole 40 Mg Inj IV 40 mg BID YOSSI Administration Polyethylene Glycol 17 gm 11/08/21 12:00 11/21/21 09:09 Polyethylene Glycol 3350 17 Gm Powder PO Not [facility] Pravastatin Sodium 20 mg 11/18/21 22:00 11/22/21 00:16 Pravastatin 20 Mg Tab PO 20 mg QHS YOSSI Administration Quetiapine Fumarate 50 mg 11/20/21 22:00 11/22/21 00:09 Quetiapine 25 Mg Tab PO 50 mg BID YOSSI Administration Senna 17.6 mg 11/08/21 22:00 11/22/21 00:10 Sennosides Oral Liqd 8.8 Mg/5 Ml Oral Liqd PO 17.6 mg Q12HR YOSSI Administration Simple Syrup 15 ml 11/08/21 11:09 Simple Syrup 15 Ml FEEDTUBE PRN PRN Hypoglycemia Simple Syrup 30 ml 11/08/21 11:09 Simple Syrup 15 Ml FEEDTUBE PRN PRN Hypoglycemia Sodium Bicarbonate 325 mg 11/08/21 11:09 Sodium Bicarbonate 325 Mg Tab FEEDTUBE PRN PRN For Clogged Feeding Tube Sodium Chloride 10 ml 11/04/21 10:00 11/22/21 00:16 Sodium Chloride 0.9% 10 Ml Flush Syringe IV 10 ml BID YOSSI Administration Sodium Chloride 10 ml 11/04/21 02:03 Sodium Chloride 0.9% 10 Ml Flush Syringe IV PRN PRN LINE FLUSH Sodium Chloride 10 ml 11/10/21 09:57 11/17/21 20:47 Sodium Chloride 0.9% 50 Ml Ivpb IV 10 ml PRN PRN Administration FLUSH Sucralfate 1 gm 11/18/21 16:30 11/22/21 00:18 Sucralfate 1 Gm/10 Ml Oral Liqd PO 1 gm ACHS YOSSI Administration Nutrition/Malnutrition Assess - Dietary Evaluation Nutrition/Malnutrition Findings: Nutrition Notes Start: 11/04/21 17:16 Freq: Status: Active Protocol: Document 11/20/21 15:54 ISABELL (Rec: 11/20/21 16:31 ISABELL [id number]) Nutrition Notes Initial or Follow up Reassessment Current Diagnosis Decubitus(Pressure Ulcer), Diabetes,Sepsis,Hypertension, Respiratory Failure Other Pertinent Diagnosis Septic shock, Bilateral Pneumonia, Lower Extremity Cellulitis. Current Diet TF-Glucerna 1.2 Tamir @ 42 ml/hr (since D 11/20). Labs/Tests 11/20: K 3.5, Cl 108.9, BUN 37 , Glu 117. Pertinent Medications 11/20: D5w 1000 ml @ 75 ml/hr, others nutritionally unremarkable. Height 5 ft Weight 62.4 kg [place] Body Weight (kg) 45.45 BMI 26.9 Weight change and time frame No body weight change reported . Weight Status Appropriate Subjective/Other Information RD consult for routine F/U on TF resume. Pt continues on mechanical ventilation. MD indication to Resume TF. Percent of energy/protein needs met: Prescribed Glucerna 1.2 Tamir @ 42 ml/hr provides for energy/ protein needs (1,208 Kcal/60 g ) during LOS, 100% Kcal; 81% AA. Burn Absent Trauma Absent GI Symptoms Diarrhea Difficulty In Swallowing,Chewing Food Allergy No Skin Integrity/Comment Lower Extremities Pressure Ulcer. Current % PO Other Minimum of two criteria No #1 Nutrition Diagnosis Inadequate oral intake Comments: Pt continues on mechanical ventilation. MD indication to Resume TF. Diagnosis Progress(for reassessment Continues documentation) Is patient on ventilator? Yes Is Patient Ambulatory and/or Out of Bed No REE-([place]-confined to bed) [phone] Calculation Used for Recommendations [facility] Additional Notes Protein: 1.2-2 g/Kg; 75-125 g/ day. Fluids: 1 ml/Kcal, or as per MD. Nutrition Intervention Nutrition Support: Start Glucerna 1.2 Tamir @ 42 ml /hr. Flush: 70 ml water Q 4 hr, or as per MD. Kcal 1,208 Protein (gm) 60 Carbohydrates (gm) 115 Fat (gm) 60 Fluid (mL) 810 Fiber (gm) 16 % RDI: 100% Kcal; 81% AA. Goal #1 Provide at least 75% of energy /protein needs through Enteral Feeding during LOS. Goal #2 Maintain body weight within +/ -3% of admission body weight during LOS. Follow-Up By: 11/24/21 Additional Comments Continue monitoring TF tolerance and BM.
--- NOTE | 2021-11-21 13:30 | XRay Report ---
XR abdomen 1V ap INDICATION: NGT placement. COMPARISON: 11/17/2021 FINDINGS: The tip of the esophagogastric tube projects over the body of the stomach. Signer Name: Ramana Grissom MD Signed: 11/21/2021 1:26 PM Workstation Name: [id number]
--- NOTE | 2021-11-21 14:08 | Progress Note ---
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 - discontinue daytime Seroquel - ABG after 2 hours on SBT - consider extubation to BIPAP today or tomorrow - continue Protonix 40 mg IV bid - continue to trend H&H prn - prn Levophed for target MAP > 65 mmHg - continue care as below otherwise; - Daily SAT and SBT assessment as tolerated - continue to wean supplemental oxygen for target O2 sat's > 90% acutely - VAP bundle addressed - continue lung protective strategies - continue bronchodilators with pulmonary hygiene per RT - wean per pulmonary driven protocols otherwise - avoid nephrotoxins, renally dose all medications - continue accuchecks with glycemic control per SSI (While critically ill target blood glucose of 140-180 mg/dL; avoid hypoglycemia) - sedation prn for target RASS 0 to -1 - antibiotics per ID recommendations - continue to avoid benzodiazepine's, reduce the possibility of delirium - prn analgesia per CPOT score - Maintenance of sleep-wake cycle, avoid delirium - continue enteral nutritional support at goal rate as tolerated - G.I. & VTE prophylaxis - PT/OT/ROM exercises - continue mobility protocols for pressure ulcer prophylaxis - Monitor hemodynamics closely - continue other care per attending / other consultants - discharge planning ongoing concurrently COVID SPECIFIC INTERVENTIONS - COVID-19 PCR negative .... Re-evaluate in am & prn CONDITION: CRITICAL PROGNOSIS: GUARDED CODE STATUS: FULL CODE The high probability of a clinically significant, sudden or life-threatening deterioration of the [respiratory, cardiovascular & neurologic] system(s) required my full and direct attention, intervention and personal management. The aggregate critical care time was [36] minutes without overlap. Time includes spent on; [x] Data Review and interpretation [x] Patient assessment and monitoring of vital signs [x] Documentation [x] Medication orders and management Subjective Date of service: 11/21/21 Principal diagnosis: Septic shock; AHRF; Anemia; Pneumonia; L. pleural effusion; HFrEF; Pulm HTN Interval history: Patient is seen today for: Septic shock; Acute hypoxemic respiratory failure; Anemia; Bilateral pneumonia; Left pleural effusion; HFrEF 30-35%; Pulm HTN RVSP 49 Seen and examined at bedside; 24hour events reviewed; nursing and respiratory care staff consulted; no adverse overnight events reported to me; resting in bed; remains on MVS; responded very well to Seroquel and off IV Fentanyl; just placed on SBT and tolerating well so far; no emesis or overt aspiration; started on low dose metoprolol. Objective Vital Signs - 12hr 11/21/21 11/21/21 11/21/21 02:30 03:00 03:30 Temperature Pulse Rate 70 70 71 Pulse Rate [ From Monitor] Respiratory 15 16 16 Rate Blood Pressure 112/60 111/57 109/56 O2 Sat by Pulse 99 99 98 Oximetry 11/21/21 11/21/21 11/21/21 04:00 04:14 04:30 Temperature 97.7 F Pulse Rate 73 72 74 Pulse Rate [ 69 From Monitor] Respiratory 11 L 17 Rate Blood Pressure 119/62 119/62 119/62 O2 Sat by Pulse 100 97 98 Oximetry 11/21/21 11/21/21 11/21/21 05:00 05:30 06:00 Temperature Pulse Rate 77 73 75 Pulse Rate [ From Monitor] Respiratory 21 25 H 21 Rate Blood Pressure 127/57 133/55 133/60 O2 Sat by Pulse 94 96 95 Oximetry 11/21/21 11/21/21 11/21/21 06:30 07:00 07:30 Temperature Pulse Rate 76 76 75 Pulse Rate [ From Monitor] Respiratory 20 20 23 Rate Blood Pressure 123/55 133/61 123/56 O2 Sat by Pulse 95 97 96 Oximetry 11/21/21 11/21/21 11/21/21 07:51 08:00 08:01 Temperature 98.4 F Pulse Rate 89 76 84 Pulse Rate [ 76 From Monitor] Respiratory 21 22 Rate Blood Pressure 123/56 150/71 O2 Sat by Pulse 92 98 98 Oximetry 11/21/21 11/21/21 11/21/21 08:30 09:00 09:30 Temperature Pulse Rate 79 76 82 Pulse Rate [ From Monitor] Respiratory 16 18 14 Rate Blood Pressure 122/54 130/56 143/62 O2 Sat by Pulse 96 97 96 Oximetry 11/21/21 11/21/21 11/21/21 10:00 10:13 10:30 Temperature Pulse Rate 84 81 77 Pulse Rate [ From Monitor] Respiratory 21 19 Rate Blood Pressure 123/50 123/50 119/49 O2 Sat by Pulse 97 99 Oximetry 11/21/21 11/21/21 11/21/21 11:01 11:30 11:37 Temperature 98.9 F Pulse Rate 92 H 77 Pulse Rate [ From Monitor] Respiratory 21 18 Rate Blood Pressure 133/76 110/40 O2 Sat by Pulse 91 98 Oximetry 11/21/21 11/21/21 11/21/21 11:40 12:00 12:01 Temperature Pulse Rate 76 86 85 Pulse Rate [ 86 From Monitor] Respiratory 17 17 Rate Blood Pressure 110/40 124/58 O2 Sat by Pulse 97 100 98 Oximetry 11/21/21 11/21/21 12:30 13:00 Temperature Pulse Rate 75 74 Pulse Rate [ From Monitor] Respiratory 20 18 Rate Blood Pressure 108/43 111/45 O2 Sat by Pulse 91 93 Oximetry Constitutional: no acute distress, other (ETT to MVS, frail elderly woman without increased respiratory effort at rest) Eyes: non-icteric ENT: oropharynx moist, oropharyngeal exudate pre (clear frothy), other (ETT 23 cm ELIZABETH) Neck: supple, no lymphadenopathy, no JVD Effort: normal, mildly labored Ascultation: Bilateral: diminished breath sounds, rhonchi (bases) Percussion: Bilateral: not dull Cardiovascular: regular rate and rhythm, other (S1,S2) Gastrointestinal: normoactive bowel sounds, soft, non-tender, non-distended (protuberant) Integumentary: normal Extremities: pink and warm, pulses normal, edema (upper etremities) Neurologic: non-focal exam (grossly), pupils equal and round, CN II-XII normal, other (sedated) Psychiatric: other (sedate, unable to assess) CBC and BMP: 11/21/21 04:30 11/21/21 04:30 ABG, PT/INR, D-dimer: ABG ABG pH 7.354 pH Units (7.350-7.450) 11/20/21 Unknown ABG pCO2 41.6 mm Hg 11/20/21 Unknown ABG pO2 85.2 mm Hg (80.0-90.0) 11/20/21 Unknown ABG O2 Saturation 96.6 % (95.0-99.0) 11/20/21 Unknown PT/INR, D-dimer PT 18.6 Sec. (12.2-14.9) H 11/03/21 22:32 INR 1.40 (0.87-1.13) H 11/03/21 22:32 D-Dimer 2655.00 ng/mlDDU (0-234) H 11/11/21 04:28 Abnormal lab findings: Abnormal Labs 11/03/21 11/03/21 11/03/21 22:32 22:32 22:32 WBC 29.3 H RBC 2.93 L Hgb 6.1 L Hct 21.9 L MCV 75 L MCH 21 L MCHC 28 L RDW 19.7 H Plt Count Seg Neuts % (Manual) 97.0 H Lymphocytes % (Manual) 3.0 L Seg Neutrophils # Man 28.4 H Lymphocytes # (Manual) 0.9 L Monocytes # (Manual) PT 18.6 H INR 1.40 H D-Dimer ABG pH ABG pO2 ABG HCO3 ABG O2 Saturation ABG Base Excess ABG Hemoglobin Oxyhemoglobin Sodium Potassium Chloride Carbon Dioxide 20 L BUN 33 H Glucose 119 H POC Glucose Lactic Acid Calcium 8.3 L Phosphorus Magnesium AST ALT Alkaline Phosphatase Lactate Dehydrogenase Troponin T 0.035 H C-Reactive Protein NT-Pro-B Natriuret Pep Total Protein Albumin LDL Cholesterol Direct 34 L Vitamin B12 Crossmatch 11/03/21 11/03/21 11/03/21 22:32 22:32 23:57 WBC RBC Hgb Hct MCV MCH MCHC RDW Plt Count Seg Neuts % (Manual) Lymphocytes % (Manual) Seg Neutrophils # Man Lymphocytes # (Manual) Monocytes # (Manual) PT INR D-Dimer ABG pH ABG pO2 ABG HCO3 ABG O2 Saturation ABG Base Excess ABG Hemoglobin Oxyhemoglobin Sodium Potassium Chloride Carbon Dioxide BUN Glucose POC Glucose Lactic Acid 3.70 H* Calcium Phosphorus Magnesium AST ALT Alkaline Phosphatase 139 H Lactate Dehydrogenase Troponin T C-Reactive Protein NT-Pro-B Natriuret Pep 7895 H Total Protein Albumin 3.5 L LDL Cholesterol Direct Vitamin B12 Crossmatch See Detail 11/04/21 11/04/21 11/05/21 00:59 13:58 00:51 WBC 27.9 H RBC 3.28 L Hgb 7.3 L Hct 25.5 L MCV 78 L MCH 22 L MCHC 29 L RDW 19.1 H Plt Count Seg Neuts % (Manual) 96.0 H Lymphocytes % (Manual) 2.0 L Seg Neutrophils # Man 26.8 H Lymphocytes # (Manual) 0.6 L Monocytes # (Manual) PT INR D-Dimer ABG pH ABG pO2 ABG HCO3 ABG O2 Saturation ABG Base Excess ABG Hemoglobin Oxyhemoglobin Sodium Potassium Chloride Carbon Dioxide BUN Glucose POC Glucose Lactic Acid Calcium Phosphorus Magnesium AST ALT Alkaline Phosphatase Lactate Dehydrogenase Troponin T 0.051 H D 0.032 H D C-Reactive Protein NT-Pro-B Natriuret Pep Total Protein Albumin LDL Cholesterol Direct Vitamin B12 Crossmatch 11/05/21 11/05/21 11/05/21 06:11 06:11 06:11 WBC 31.8 H RBC 3.57 L Hgb 8.0 L Hct 27.7 L MCV 78 L MCH 22 L MCHC 29 L RDW 19.2 H Plt Count Seg Neuts % (Manual) 91.0 H Lymphocytes % (Manual) 4.5 L Seg Neutrophils # Man 28.9 H Lymphocytes # (Manual) Monocytes # (Manual) 1.1 H PT INR D-Dimer 1494.53 H ABG pH ABG pO2 ABG HCO3 ABG O2 Saturation ABG Base Excess ABG Hemoglobin Oxyhemoglobin Sodium Potassium Chloride Carbon Dioxide 19 L BUN 42 H Glucose 115 H POC Glucose Lactic Acid Calcium Phosphorus Magnesium AST 43 H ALT Alkaline Phosphatase Lactate Dehydrogenase 187 H Troponin T C-Reactive Protein 22.20 H NT-Pro-B Natriuret Pep Total Protein 6.0 L Albumin 3.2 L LDL Cholesterol Direct Vitamin B12 Crossmatch 11/05/21 11/05/21 11/06/21 06:11 12:15 00:30 WBC RBC Hgb Hct MCV MCH MCHC RDW Plt Count Seg Neuts % (Manual) Lymphocytes % (Manual) Seg Neutrophils # Man Lymphocytes # (Manual) Monocytes # (Manual) PT INR D-Dimer ABG pH ABG pO2 ABG HCO3 ABG O2 Saturation ABG Base Excess ABG Hemoglobin Oxyhemoglobin Sodium Potassium Chloride Carbon Dioxide BUN Glucose POC Glucose 113 H 69 L Lactic Acid Calcium Phosphorus Magnesium AST ALT Alkaline Phosphatase Lactate Dehydrogenase Troponin T 0.033 H C-Reactive Protein NT-Pro-B Natriuret Pep Total Protein Albumin LDL Cholesterol Direct Vitamin B12 Crossmatch 11/06/21 11/06/21 11/06/21 05:50 15:50 15:50 WBC 25.5 H RBC 3.62 L Hgb 8.0 L Hct 27.5 L MCV 76 L MCH 22 L MCHC 29 L RDW 19.6 H Plt Count Seg Neuts % (Manual) 92.0 H Lymphocytes % (Manual) 5.0 L Seg Neutrophils # Man 23.5 H Lymphocytes # (Manual) Monocytes # (Manual) PT INR D-Dimer ABG pH 7.305 L ABG pO2 ABG HCO3 15.8 L ABG O2 Saturation ABG Base Excess -9.6 L ABG Hemoglobin 8.6 L Oxyhemoglobin 94.6 L Sodium Potassium Chloride 113.9 H Carbon Dioxide 17 L BUN 56 H Glucose 114 H POC Glucose Lactic Acid Calcium 7.9 L Phosphorus Magnesium AST 1410 H ALT 934 H Alkaline Phosphatase 142 H Lactate Dehydrogenase Troponin T C-Reactive Protein NT-Pro-B Natriuret Pep Total Protein 5.0 L Albumin 2.6 L LDL Cholesterol Direct Vitamin B12 Crossmatch 11/07/21 11/07/21 11/07/21 03:30 04:50 08:07 WBC RBC Hgb Hct MCV MCH MCHC RDW Plt Count Seg Neuts % (Manual) Lymphocytes % (Manual) Seg Neutrophils # Man Lymphocytes # (Manual) Monocytes # (Manual) PT INR D-Dimer ABG pH ABG pO2 296.9 H ABG HCO3 18.1 L ABG O2 Saturation 99.5 H ABG Base Excess -5.9 L ABG Hemoglobin 7.6 L Oxyhemoglobin Sodium Potassium Chloride Carbon Dioxide BUN Glucose POC Glucose 106 H 108 H Lactic Acid Calcium Phosphorus Magnesium AST ALT Alkaline Phosphatase Lactate Dehydrogenase Troponin T C-Reactive Protein NT-Pro-B Natriuret Pep Total Protein Albumin LDL Cholesterol Direct Vitamin B12 Crossmatch 11/08/21 11/08/21 11/08/21 03:10 18:05 23:43 WBC RBC Hgb Hct MCV MCH MCHC RDW Plt Count Seg Neuts % (Manual) Lymphocytes % (Manual) Seg Neutrophils # Man Lymphocytes # (Manual) Monocytes # (Manual) PT INR D-Dimer ABG pH ABG pO2 127.4 H ABG HCO3 ABG O2 Saturation ABG Base Excess -3.4 L ABG Hemoglobin 7.4 L Oxyhemoglobin Sodium Potassium Chloride Carbon Dioxide BUN Glucose POC Glucose 113 H 141 H Lactic Acid Calcium Phosphorus Magnesium AST ALT Alkaline Phosphatase Lactate Dehydrogenase Troponin T C-Reactive Protein NT-Pro-B Natriuret Pep Total Protein Albumin LDL Cholesterol Direct Vitamin B12 Crossmatch 11/08/21 11/08/21 11/09/21 Unknown Unknown 02:00 WBC 14.5 H RBC 3.35 L Hgb 7.5 L 8.1 L Hct 25.4 L 27.6 L MCV 76 L 76 L MCH 23 L 22 L MCHC RDW 19.9 H 19.9 H Plt Count Seg Neuts % (Manual) Lymphocytes % (Manual) Seg Neutrophils # Man Lymphocytes # (Manual) Monocytes # (Manual) PT INR D-Dimer ABG pH ABG pO2 ABG HCO3 ABG O2 Saturation ABG Base Excess ABG Hemoglobin Oxyhemoglobin Sodium 154 H D Potassium 3.3 L Chloride 120.7 H Carbon Dioxide 20 L BUN 38 H Glucose POC Glucose Lactic Acid Calcium 8.3 L Phosphorus Magnesium AST ALT Alkaline Phosphatase Lactate Dehydrogenase Troponin T C-Reactive Protein NT-Pro-B Natriuret Pep Total Protein Albumin LDL Cholesterol Direct Vitamin B12 Crossmatch 11/09/21 11/09/21 11/09/21 02:00 02:31 05:12 WBC RBC Hgb Hct MCV MCH MCHC RDW Plt Count Seg Neuts % (Manual) Lymphocytes % (Manual) Seg Neutrophils # Man Lymphocytes # (Manual) Monocytes # (Manual) PT INR D-Dimer ABG pH 7.479 H ABG pO2 121.3 H ABG HCO3 ABG O2 Saturation ABG Base Excess ABG Hemoglobin 7.3 L Oxyhemoglobin Sodium Potassium Chloride 112.5 H Carbon Dioxide BUN 33 H Glucose 161 H POC Glucose 135 H Lactic Acid Calcium Phosphorus Magnesium AST 251 H ALT 481 H Alkaline Phosphatase Lactate Dehydrogenase Troponin T C-Reactive Protein NT-Pro-B Natriuret Pep Total Protein 5.0 L Albumin 2.8 L LDL Cholesterol Direct Vitamin B12 Crossmatch 11/09/21 11/09/21 11/09/21 11:33 16:32 23:28 WBC RBC Hgb Hct MCV MCH MCHC RDW Plt Count Seg Neuts % (Manual) Lymphocytes % (Manual) Seg Neutrophils # Man Lymphocytes # (Manual) Monocytes # (Manual) PT INR D-Dimer ABG pH ABG pO2 ABG HCO3 ABG O2 Saturation ABG Base Excess ABG Hemoglobin Oxyhemoglobin Sodium Potassium Chloride Carbon Dioxide BUN Glucose POC Glucose 132 H 133 H 143 H Lactic Acid Calcium Phosphorus Magnesium AST ALT Alkaline Phosphatase Lactate Dehydrogenase Troponin T C-Reactive Protein NT-Pro-B Natriuret Pep Total Protein Albumin LDL Cholesterol Direct Vitamin B12 Crossmatch 11/10/21 11/10/21 11/10/21 04:00 04:00 05:35 WBC 16.0 H RBC 3.61 L Hgb 8.0 L Hct 27.1 L MCV 75 L MCH 22 L MCHC RDW 20.4 H Plt Count Seg Neuts % (Manual) Lymphocytes % (Manual) Seg Neutrophils # Man Lymphocytes # (Manual) Monocytes # (Manual) PT INR D-Dimer ABG pH ABG pO2 ABG HCO3 ABG O2 Saturation ABG Base Excess ABG Hemoglobin Oxyhemoglobin Sodium 149 H Potassium Chloride 114.1 H Carbon Dioxide BUN 31 H Glucose 148 H POC Glucose 132 H Lactic Acid Calcium 8.2 L Phosphorus Magnesium AST ALT Alkaline Phosphatase Lactate Dehydrogenase Troponin T C-Reactive Protein NT-Pro-B Natriuret Pep Total Protein Albumin LDL Cholesterol Direct Vitamin B12 Crossmatch 11/10/21 11/10/21 11/10/21 11:31 14:08 15:35 WBC RBC Hgb Hct MCV MCH MCHC RDW Plt Count Seg Neuts % (Manual) Lymphocytes % (Manual) Seg Neutrophils # Man Lymphocytes # (Manual) Monocytes # (Manual) PT INR D-Dimer ABG pH ABG pO2 126.6 H ABG HCO3 ABG O2 Saturation ABG Base Excess ABG Hemoglobin 7.4 L Oxyhemoglobin Sodium Potassium Chloride Carbon Dioxide BUN Glucose POC Glucose 147 H Lactic Acid Calcium Phosphorus Magnesium AST ALT Alkaline Phosphatase Lactate Dehydrogenase Troponin T C-Reactive Protein NT-Pro-B Natriuret Pep Total Protein Albumin LDL Cholesterol Direct Vitamin B12 1823 H Crossmatch 11/10/21 11/11/21 11/11/21 17:53 00:55 04:28 WBC RBC Hgb Hct MCV MCH MCHC RDW Plt Count Seg Neuts % (Manual) Lymphocytes % (Manual) Seg Neutrophils # Man Lymphocytes # (Manual) Monocytes # (Manual) PT INR D-Dimer ABG pH ABG pO2 ABG HCO3 ABG O2 Saturation ABG Base Excess ABG Hemoglobin Oxyhemoglobin Sodium 149 H Potassium Chloride 112.2 H Carbon Dioxide BUN 34 H Glucose 148 H POC Glucose 140 H 145 H Lactic Acid Calcium 7.9 L Phosphorus Magnesium AST 53 H ALT 203 H Alkaline Phosphatase Lactate Dehydrogenase Troponin T C-Reactive Protein NT-Pro-B Natriuret Pep Total Protein 4.9 L Albumin 2.6 L LDL Cholesterol Direct Vitamin B12 Crossmatch 11/11/21 11/11/21 11/11/21 04:28 04:28 05:28 WBC 20.9 H RBC 3.47 L Hgb 7.5 L Hct 26.0 L MCV 75 L MCH 22 L MCHC 29 L RDW 21.6 H Plt Count 132 L Seg Neuts % (Manual) Lymphocytes % (Manual) Seg Neutrophils # Man Lymphocytes # (Manual) Monocytes # (Manual) PT INR D-Dimer 2655.00 H ABG pH ABG pO2 ABG HCO3 ABG O2 Saturation ABG Base Excess ABG Hemoglobin Oxyhemoglobin Sodium Potassium Chloride Carbon Dioxide BUN Glucose POC Glucose 154 H Lactic Acid Calcium Phosphorus Magnesium AST ALT Alkaline Phosphatase Lactate Dehydrogenase Troponin T C-Reactive Protein NT-Pro-B Natriuret Pep Total Protein Albumin LDL Cholesterol Direct Vitamin B12 Crossmatch 11/11/21 11/11/21 11/12/21 12:38 18:13 00:14 WBC RBC Hgb Hct MCV MCH MCHC RDW Plt Count Seg Neuts % (Manual) Lymphocytes % (Manual) Seg Neutrophils # Man Lymphocytes # (Manual) Monocytes # (Manual) PT INR D-Dimer ABG pH ABG pO2 ABG HCO3 ABG O2 Saturation ABG Base Excess ABG Hemoglobin Oxyhemoglobin Sodium Potassium Chloride Carbon Dioxide BUN Glucose POC Glucose 137 H 108 H 137 H Lactic Acid Calcium Phosphorus Magnesium AST ALT Alkaline Phosphatase Lactate Dehydrogenase Troponin T C-Reactive Protein NT-Pro-B Natriuret Pep Total Protein Albumin LDL Cholesterol Direct Vitamin B12 Crossmatch 11/12/21 11/12/21 11/12/21 05:40 06:24 11:12 WBC RBC Hgb Hct MCV MCH MCHC RDW Plt Count Seg Neuts % (Manual) Lymphocytes % (Manual) Seg Neutrophils # Man Lymphocytes # (Manual) Monocytes # (Manual) PT INR D-Dimer ABG pH 7.586 H ABG pO2 150.6 H ABG HCO3 27.2 H ABG O2 Saturation 99.1 H ABG Base Excess 5.2 H ABG Hemoglobin 7.5 L Oxyhemoglobin Sodium Potassium Chloride Carbon Dioxide BUN Glucose POC Glucose 132 H 140 H Lactic Acid Calcium Phosphorus Magnesium AST ALT Alkaline Phosphatase Lactate Dehydrogenase Troponin T C-Reactive Protein NT-Pro-B Natriuret Pep Total Protein Albumin LDL Cholesterol Direct Vitamin B12 Crossmatch 11/12/21 11/12/21 11/12/21 14:50 14:50 17:13 WBC 19.8 H RBC 3.27 L Hgb 7.1 L Hct 24.5 L MCV 75 L MCH 22 L MCHC 29 L RDW 22.3 H Plt Count Seg Neuts % (Manual) Lymphocytes % (Manual) Seg Neutrophils # Man Lymphocytes # (Manual) Monocytes # (Manual) PT INR D-Dimer ABG pH ABG pO2 ABG HCO3 ABG O2 Saturation ABG Base Excess ABG Hemoglobin Oxyhemoglobin Sodium 150 H Potassium 3.3 L Chloride 112.0 H Carbon Dioxide BUN 40 H Glucose 151 H POC Glucose 121 H Lactic Acid Calcium 7.4 L Phosphorus 1.70 L Magnesium 1.40 L AST ALT Alkaline Phosphatase Lactate Dehydrogenase Troponin T C-Reactive Protein NT-Pro-B Natriuret Pep Total Protein Albumin LDL Cholesterol Direct Vitamin B12 Crossmatch 11/12/21 11/13/21 11/13/21 23:19 05:34 06:30 WBC RBC Hgb Hct MCV MCH MCHC RDW Plt Count Seg Neuts % (Manual) Lymphocytes % (Manual) Seg Neutrophils # Man Lymphocytes # (Manual) Monocytes # (Manual) PT INR D-Dimer ABG pH ABG pO2 ABG HCO3 ABG O2 Saturation ABG Base Excess ABG Hemoglobin Oxyhemoglobin Sodium 149 H Potassium Chloride 60.0 L Carbon Dioxide BUN 40 H Glucose 146 H POC Glucose 113 H 132 H Lactic Acid Calcium 7.3 L Phosphorus Magnesium 2.40 H AST ALT 72 H Alkaline Phosphatase Lactate Dehydrogenase Troponin T C-Reactive Protein NT-Pro-B Natriuret Pep Total Protein 5.2 L Albumin 2.2 L LDL Cholesterol Direct Vitamin B12 Crossmatch 11/13/21 11/13/21 11/13/21 06:30 08:30 11:19 WBC 21.2 H RBC 3.12 L Hgb 6.8 L Hct 23.2 L MCV 74 L MCH 22 L MCHC 29 L RDW 22.2 H Plt Count 135 L Seg Neuts % (Manual) Lymphocytes % (Manual) Seg Neutrophils # Man Lymphocytes # (Manual) Monocytes # (Manual) PT INR D-Dimer ABG pH ABG pO2 ABG HCO3 ABG O2 Saturation ABG Base Excess ABG Hemoglobin Oxyhemoglobin Sodium Potassium Chloride Carbon Dioxide BUN Glucose POC Glucose 136 H Lactic Acid Calcium Phosphorus Magnesium AST ALT Alkaline Phosphatase Lactate Dehydrogenase Troponin T C-Reactive Protein NT-Pro-B Natriuret Pep Total Protein Albumin LDL Cholesterol Direct Vitamin B12 Crossmatch See Detail 11/13/21 11/14/21 11/14/21 18:21 00:01 04:46 WBC 20.0 H RBC 3.41 L Hgb 7.9 L Hct 26.8 L MCV MCH 23 L MCHC 29 L RDW 24.0 H Plt Count Seg Neuts % (Manual) Lymphocytes % (Manual) Seg Neutrophils # Man Lymphocytes # (Manual) Monocytes # (Manual) PT INR D-Dimer ABG pH ABG pO2 ABG HCO3 ABG O2 Saturation ABG Base Excess ABG Hemoglobin Oxyhemoglobin Sodium Potassium Chloride Carbon Dioxide BUN Glucose POC Glucose 149 H 141 H Lactic Acid Calcium Phosphorus Magnesium AST ALT Alkaline Phosphatase Lactate Dehydrogenase Troponin T C-Reactive Protein NT-Pro-B Natriuret Pep Total Protein Albumin LDL Cholesterol Direct Vitamin B12 Crossmatch 11/14/21 11/14/21 11/14/21 04:46 05:10 11:10 WBC RBC Hgb Hct MCV MCH MCHC RDW Plt Count Seg Neuts % (Manual) Lymphocytes % (Manual) Seg Neutrophils # Man Lymphocytes # (Manual) Monocytes # (Manual) PT INR D-Dimer ABG pH ABG pO2 ABG HCO3 ABG O2 Saturation ABG Base Excess ABG Hemoglobin Oxyhemoglobin Sodium 148 H Potassium Chloride 113.1 H Carbon Dioxide BUN 43 H Glucose 140 H POC Glucose 132 H 133 H Lactic Acid Calcium 7.5 L Phosphorus Magnesium AST ALT Alkaline Phosphatase Lactate Dehydrogenase Troponin T C-Reactive Protein NT-Pro-B Natriuret Pep Total Protein Albumin LDL Cholesterol Direct Vitamin B12 Crossmatch 11/14/21 11/14/21 11/14/21 16:14 17:48 23:23 WBC RBC Hgb Hct MCV MCH MCHC RDW Plt Count Seg Neuts % (Manual) Lymphocytes % (Manual) Seg Neutrophils # Man Lymphocytes # (Manual) Monocytes # (Manual) PT INR D-Dimer ABG pH ABG pO2 ABG HCO3 28.0 H ABG O2 Saturation ABG Base Excess 3.1 H ABG Hemoglobin 5.8 L Oxyhemoglobin 94.8 L Sodium Potassium Chloride Carbon Dioxide BUN Glucose POC Glucose 130 H 136 H Lactic Acid Calcium Phosphorus Magnesium AST ALT Alkaline Phosphatase Lactate Dehydrogenase Troponin T C-Reactive Protein NT-Pro-B Natriuret Pep Total Protein Albumin LDL Cholesterol Direct Vitamin B12 Crossmatch 11/15/21 11/15/21 11/15/21 05:20 05:50 05:50 WBC 19.9 H RBC 3.50 L Hgb 8.2 L Hct 27.9 L MCV MCH 23 L MCHC 29 L RDW 24.9 H Plt Count Seg Neuts % (Manual) Lymphocytes % (Manual) Seg Neutrophils # Man Lymphocytes # (Manual) Monocytes # (Manual) PT INR D-Dimer ABG pH ABG pO2 ABG HCO3 ABG O2 Saturation ABG Base Excess ABG Hemoglobin Oxyhemoglobin Sodium 149 H Potassium Chloride 112.0 H Carbon Dioxide BUN 48 H Glucose 152 H POC Glucose 137 H Lactic Acid Calcium 7.9 L Phosphorus Magnesium AST ALT Alkaline Phosphatase Lactate Dehydrogenase Troponin T C-Reactive Protein NT-Pro-B Natriuret Pep Total Protein Albumin LDL Cholesterol Direct Vitamin B12 Crossmatch 11/15/21 11/15/21 11/15/21 12:12 17:07 23:24 WBC RBC Hgb Hct MCV MCH MCHC RDW Plt Count Seg Neuts % (Manual) Lymphocytes % (Manual) Seg Neutrophils # Man Lymphocytes # (Manual) Monocytes # (Manual) PT INR D-Dimer ABG pH ABG pO2 ABG HCO3 ABG O2 Saturation ABG Base Excess ABG Hemoglobin Oxyhemoglobin Sodium Potassium Chloride Carbon Dioxide BUN Glucose POC Glucose 114 H 135 H 123 H Lactic Acid Calcium Phosphorus Magnesium AST ALT Alkaline Phosphatase Lactate Dehydrogenase Troponin T C-Reactive Protein NT-Pro-B Natriuret Pep Total Protein Albumin LDL Cholesterol Direct Vitamin B12 Crossmatch 11/16/21 11/16/21 11/16/21 05:21 10:00 10:00 WBC 21.7 H RBC 2.57 L Hgb 6.0 L Hct 20.2 L D MCV MCH 24 L MCHC RDW 26.3 H Plt Count Seg Neuts % (Manual) Lymphocytes % (Manual) Seg Neutrophils # Man Lymphocytes # (Manual) Monocytes # (Manual) PT INR D-Dimer ABG pH ABG pO2 ABG HCO3 ABG O2 Saturation ABG Base Excess ABG Hemoglobin Oxyhemoglobin Sodium 153 H Potassium Chloride 114.9 H Carbon Dioxide BUN 74 H Glucose 155 H POC Glucose 127 H Lactic Acid Calcium 8.1 L Phosphorus Magnesium AST ALT Alkaline Phosphatase Lactate Dehydrogenase Troponin T C-Reactive Protein NT-Pro-B Natriuret Pep Total Protein Albumin LDL Cholesterol Direct Vitamin B12 Crossmatch 11/16/21 11/16/2122 11:34 14:00 15:25 WBC 17.2 H RBC 2.08 L Hgb 4.7 L* Hct 16.2 L* MCV 78 L MCH 23 L MCHC 29 L RDW 26.0 H Plt Count Seg Neuts % (Manual) 87.0 H Lymphocytes % (Manual) 8.0 L Seg Neutrophils # Man 15.0 H Lymphocytes # (Manual) Monocytes # (Manual) 0.9 H PT INR D-Dimer ABG pH ABG pO2 ABG HCO3 ABG O2 Saturation ABG Base Excess ABG Hemoglobin Oxyhemoglobin Sodium Potassium Chloride Carbon Dioxide BUN Glucose POC Glucose 131 H Lactic Acid Calcium Phosphorus Magnesium AST ALT Alkaline Phosphatase Lactate Dehydrogenase Troponin T C-Reactive Protein NT-Pro-B Natriuret Pep Total Protein Albumin LDL Cholesterol Direct Vitamin B12 Crossmatch See Detail 11/16/21 11/16/21 11/16/21 15:25 17:21 22:43 WBC RBC Hgb 8.6 L D Hct 27.7 L D MCV MCH MCHC RDW Plt Count Seg Neuts % (Manual) Lymphocytes % (Manual) Seg Neutrophils # Man Lymphocytes # (Manual) Monocytes # (Manual) PT INR D-Dimer ABG pH ABG pO2 ABG HCO3 ABG O2 Saturation ABG Base Excess ABG Hemoglobin Oxyhemoglobin Sodium 148 H Potassium Chloride 113.2 H Carbon Dioxide BUN 84 H Glucose 164 H POC Glucose 124 H Lactic Acid Calcium 7.6 L Phosphorus Magnesium AST ALT Alkaline Phosphatase Lactate Dehydrogenase Troponin T C-Reactive Protein NT-Pro-B Natriuret Pep Total Protein Albumin LDL Cholesterol Direct Vitamin B12 Crossmatch 11/16/21 11/17/21 11/17/21 23:07 05:33 05:56 WBC 25.1 H RBC 3.47 L Hgb 8.7 L Hct 28.5 L MCV MCH 25 L MCHC RDW 22.3 H Plt Count Seg Neuts % (Manual) Lymphocytes % (Manual) Seg Neutrophils # Man Lymphocytes # (Manual) Monocytes # (Manual) PT INR D-Dimer ABG pH ABG pO2 ABG HCO3 ABG O2 Saturation ABG Base Excess ABG Hemoglobin Oxyhemoglobin Sodium Potassium Chloride Carbon Dioxide BUN Glucose POC Glucose 128 H 133 H Lactic Acid Calcium Phosphorus Magnesium AST ALT Alkaline Phosphatase Lactate Dehydrogenase Troponin T C-Reactive Protein NT-Pro-B Natriuret Pep Total Protein Albumin LDL Cholesterol Direct Vitamin B12 Crossmatch 11/17/21 11/17/21 11/17/21 05:56 11:00 11:55 WBC RBC Hgb 8.3 L Hct 26.9 L MCV MCH MCHC RDW Plt Count Seg Neuts % (Manual) Lymphocytes % (Manual) Seg Neutrophils # Man Lymphocytes # (Manual) Monocytes # (Manual) PT INR D-Dimer ABG pH ABG pO2 ABG HCO3 ABG O2 Saturation ABG Base Excess ABG Hemoglobin Oxyhemoglobin Sodium 151 H Potassium Chloride 113.6 H Carbon Dioxide BUN 85 H Glucose 132 H POC Glucose 121 H Lactic Acid Calcium 7.8 L Phosphorus Magnesium AST ALT Alkaline Phosphatase Lactate Dehydrogenase Troponin T C-Reactive Protein NT-Pro-B Natriuret Pep Total Protein 5.1 L Albumin 2.2 L LDL Cholesterol Direct Vitamin B12 Crossmatch 11/17/21 11/17/21 11/18/21 18:04 18:55 00:26 WBC RBC Hgb 7.5 L 7.1 L Hct 24.8 L 23.6 L MCV MCH MCHC RDW Plt Count Seg Neuts % (Manual) Lymphocytes % (Manual) Seg Neutrophils # Man Lymphocytes # (Manual) Monocytes # (Manual) PT INR D-Dimer ABG pH ABG pO2 ABG HCO3 ABG O2 Saturation ABG Base Excess ABG Hemoglobin Oxyhemoglobin Sodium Potassium Chloride Carbon Dioxide BUN Glucose POC Glucose 144 H Lactic Acid Calcium Phosphorus Magnesium AST ALT Alkaline Phosphatase Lactate Dehydrogenase Troponin T C-Reactive Protein NT-Pro-B Natriuret Pep Total Protein Albumin LDL Cholesterol Direct Vitamin B12 Crossmatch 11/18/21 11/18/21 11/18/21 00:43 05:10 05:10 WBC 12.5 H RBC 2.39 L Hgb 6.1 L Hct 20.2 L MCV MCH 25 L MCHC RDW 23.2 H Plt Count Seg Neuts % (Manual) Lymphocytes % (Manual) Seg Neutrophils # Man Lymphocytes # (Manual) Monocytes # (Manual) PT INR D-Dimer ABG pH ABG pO2 ABG HCO3 ABG O2 Saturation ABG Base Excess ABG Hemoglobin Oxyhemoglobin Sodium 131 L D Potassium 2.9 L* D Chloride 97.8 L Carbon Dioxide BUN 58 H Glucose 665 H* POC Glucose 139 H Lactic Acid Calcium 7.0 L Phosphorus 2.20 L D Magnesium 1.50 L AST ALT Alkaline Phosphatase Lactate Dehydrogenase Troponin T C-Reactive Protein NT-Pro-B Natriuret Pep Total Protein Albumin LDL Cholesterol Direct Vitamin B12 Crossmatch 11/18/21 11/18/21 11/18/21 05:23 07:10 10:45 WBC RBC Hgb Hct MCV MCH MCHC RDW Plt Count Seg Neuts % (Manual) Lymphocytes % (Manual) Seg Neutrophils # Man Lymphocytes # (Manual) Monocytes # (Manual) PT INR D-Dimer ABG pH ABG pO2 ABG HCO3 ABG O2 Saturation ABG Base Excess ABG Hemoglobin Oxyhemoglobin Sodium 148 H D Potassium 3.1 L Chloride 111.9 H Carbon Dioxide BUN 63 H Glucose 141 H POC Glucose 124 H Lactic Acid Calcium 8.1 L D Phosphorus Magnesium AST ALT Alkaline Phosphatase Lactate Dehydrogenase Troponin T C-Reactive Protein NT-Pro-B Natriuret Pep Total Protein Albumin LDL Cholesterol Direct Vitamin B12 Crossmatch See Detail 11/18/21 11/19/21 11/19/21 11:57 00:19 04:55 WBC RBC 3.35 L Hgb 9.0 L 8.9 L Hct 28.3 L D 28.1 L MCV MCH 27 L MCHC RDW 20.3 H Plt Count Seg Neuts % (Manual) Lymphocytes % (Manual) Seg Neutrophils # Man Lymphocytes # (Manual) Monocytes # (Manual) PT INR D-Dimer ABG pH ABG pO2 ABG HCO3 ABG O2 Saturation ABG Base Excess ABG Hemoglobin Oxyhemoglobin Sodium Potassium Chloride Carbon Dioxide BUN Glucose POC Glucose 119 H Lactic Acid Calcium Phosphorus Magnesium AST ALT Alkaline Phosphatase Lactate Dehydrogenase Troponin T C-Reactive Protein NT-Pro-B Natriuret Pep Total Protein Albumin LDL Cholesterol Direct Vitamin B12 Crossmatch 11/19/21 11/19/21 11/20/21 04:55 05:42 00:55 WBC RBC Hgb 9.0 L Hct 28.6 L MCV MCH MCHC RDW Plt Count Seg Neuts % (Manual) Lymphocytes % (Manual) Seg Neutrophils # Man Lymphocytes # (Manual) Monocytes # (Manual) PT INR D-Dimer ABG pH ABG pO2 ABG HCO3 ABG O2 Saturation ABG Base Excess ABG Hemoglobin Oxyhemoglobin Sodium Potassium 3.5 L Chloride 108.6 H Carbon Dioxide BUN 47 H Glucose 207 H POC Glucose 63 L Lactic Acid Calcium 7.1 L Phosphorus Magnesium AST ALT Alkaline Phosphatase Lactate Dehydrogenase Troponin T C-Reactive Protein NT-Pro-B Natriuret Pep Total Protein Albumin LDL Cholesterol Direct Vitamin B12 Crossmatch 11/20/21 11/20/21 11/20/21 05:40 05:40 Unknown WBC RBC 3.40 L Hgb 9.1 L Hct 28.8 L MCV MCH 27 L MCHC RDW 20.7 H Plt Count Seg Neuts % (Manual) Lymphocytes % (Manual) Seg Neutrophils # Man Lymphocytes # (Manual) Monocytes # (Manual) PT INR D-Dimer ABG pH ABG pO2 ABG HCO3 ABG O2 Saturation ABG Base Excess -2.7 L ABG Hemoglobin 9.5 L Oxyhemoglobin 94.3 L Sodium Potassium 3.5 L Chloride 108.9 H Carbon Dioxide BUN 37 H Glucose 117 H POC Glucose Lactic Acid Calcium 7.5 L Phosphorus Magnesium AST ALT Alkaline Phosphatase Lactate Dehydrogenase Troponin T C-Reactive Protein NT-Pro-B Natriuret Pep Total Protein Albumin LDL Cholesterol Direct Vitamin B12 Crossmatch 11/21/21 11/21/21 04:30 04:30 WBC RBC 3.25 L Hgb 8.6 L Hct 28.1 L MCV MCH 26 L MCHC RDW 20.7 H Plt Count Seg Neuts % (Manual) Lymphocytes % (Manual) Seg Neutrophils # Man Lymphocytes # (Manual) Monocytes # (Manual) PT INR D-Dimer ABG pH ABG pO2 ABG HCO3 ABG O2 Saturation ABG Base Excess ABG Hemoglobin Oxyhemoglobin Sodium 134 L Potassium Chloride Carbon Dioxide 20 L BUN 34 H Glucose POC Glucose Lactic Acid Calcium 7.1 L Phosphorus Magnesium AST ALT Alkaline Phosphatase Lactate Dehydrogenase Troponin T C-Reactive Protein NT-Pro-B Natriuret Pep Total Protein Albumin LDL Cholesterol Direct Vitamin B12 Crossmatch Allied health notes reviewed: nursing
--- NOTE | 2021-11-21 14:30 | Progress Note ---
Assessment and Plan Cultures: SARS CoV2 PCR: negative 11/03/2021 blood culture: Group B streptococcus 11/04/2021 blood culture: no growth 11/11/2021 blood culture: No growth A/P: 81-year-old female with diabetes mellitus, hypertension, arthritis was admitted with shortness of breath. She was also having fever: #Severe sepsis with shock, secondary to bilateral pneumonia: likely from Group B Strep. COVID-19 negative #Group B Strep bacteremia: Likely secondary to above, no other source identified, other possibility is mild lower extremity cellulitis. Does have indwelling cardiac device, per patient it is a pacemaker. TTE showed no valvular or lead vegetations #Acute hypoxic respiratory failure: Secondary to above. Intubated, on the vent. #Acute DVT: unable to anticoagulate Recs: -Completed antibiotics -overall guarded prognosis ID will sign off. Please call with questions. Mahogany Montes MD [facility] ([facility]) O: [phone] F: [phone] Subjective Date of service: 11/21/21 Principal diagnosis: Septic shock; AHRF; Anemia; Pneumonia; L. pleural effusion; HFrEF; Pulm HTN Interval history: Afebrile, normal white count. Objective - Exam Narrative Exam: Physical exam deferred to reduce risk of transmission of COVID-19. Please refer to primary team's note. - Constitutional Vitals: Vital Signs Temp Pulse Resp BP Pulse Ox 98.9 F 74 18 111/45 93 11/21/21 11:37 11/21/21 13:00 11/21/21 13:00 11/21/21 13:00 11/21/21 13:00 Temperature -Last 24 Hours Temperature 98.9 F Temperature 98.4 F Temperature 97.7 F Temperature 97.4 F - Labs CBC & Chem 7: 11/21/21 04:30 11/21/21 04:30 Labs: Abnormal lab results 11/20/21 11/21/21 11/21/21 Range/Units Unknown 04:30 04:30 RBC 3.25 L (3.65-5.03) M/mm3 Hgb 8.6 L (10.1-14.3) gm/dl Hct 28.1 L (30.3-42.9) % MCH 26 L (28-32) pg RDW 20.7 H (13.2-15.2) % ABG Base Excess -2.7 L (-2.0-3.0) mmol/L ABG Hemoglobin 9.5 L (12.0-16.0) gm/dl Oxyhemoglobin 94.3 L (95.0-99.0) % Sodium 134 L (137-145) mmol/L Carbon Dioxide 20 L (22-30) mmol/L BUN 34 H (7-17) mg/dL Calcium 7.1 L (8.4-10.2) mg/dL
--- NOTE | 2021-11-21 14:45 | Electrocardiograph Report ---
[facility] Test Date: 2021-11-21 Test Time: 08:52:07 Pat Name: ENRRIQUE GLASS Department: Room: A262 1 Gender: F Behavioral Modification Assistant: MATTHIAS : [id number] Requested By: LONNIE MAURICE Order Number: [id number] Reading MD: Vamsi Covington Measurements Intervals [place] Rate: 77 P: -36 WV: 153 QRS: -44 QRSD: 130 T: 104 QT: 434 QTc: 491 Interpretive Statements Sinus rhythm RBBB and LAFB Compared to ECG 11/10/2021 11:11:46 No significant change Electronically Signed On 11-21-2021 14:44:34 EST by Vamsi Covington
[2021-11-21] MEDS: DEXTROSE 10% *Hypoglycemia IV PRN (16:27)
[2021-11-21 17:14] LABS: ABG Base Excess -1.7 mmol/L (-2.0-3.0); ABG HCO3 21.8 mmol/L (20.0-26.0); ABG Methemoglobin 0.5 % (0.0-1.5); ABG Oxygen Saturation 98.3 % (95.0-99.0); ABG PCO2 32.1 mm Hg; ABG PH 7.449 pH Units (7.350-7.450); ABG PO2 114.2 mm Hg (80.0-90.0)
[2021-11-22] MEDS: QUEtiapine 25 MG TAB PO SCH ×3 (00:09→21:25)
[2021-11-22] MEDS: SENNOSIDES ORAL LIQD 8.8 MG/5 ML ORAL LIQD PO SCH ×3 (00:10→21:23)
[2021-11-22] MEDS: METOPROLOL TARTRATE 25 MG TAB PO SCH ×3 (00:10→21:26)
[2021-11-22] MEDS: HYDROcodone/ACETAMINOPHEN 10-325MG TAB FEEDTUBE SCH ×4 (00:10→21:24)
[2021-11-22] MEDS: DOCUSATE SODIUM 100 MG/10 ML ORAL LIQD PO SCH ×3 (00:10→21:23)
[2021-11-22] MEDS: busPIRone 5 MG TAB PO SCH ×3 (00:11→21:23)
[2021-11-22] MEDS: PRAVASTATIN 20 MG TAB PO SCH ×2 (00:16→21:25)
[2021-11-22] MEDS: PANTOPRAZOLE 40 MG INJ IV SCH ×3 (00:16→21:23)
[2021-11-22] MEDS: SUCRALFATE 1 GM/10 ML ORAL LIQD PO SCH ×5 (00:18→21:23)
[2021-11-22] MEDS: INSULIN LISPRO 100 UNIT/ML SUB-Q SCH ×4 (00:27→18:06)
[2021-11-22] MEDS: LEVOTHYROXINE 125 MCG TAB PO SCH (07:10)
[2021-11-22 08:05] LABS: Calcium 7.5 mg/dL (8.4-10.2)
[2021-11-22 08:06] LABS: Hematocrit 28.5 % (30.3-42.9); Mean Corpuscular HGB Conc 32 % (30-34); Mean Corpuscular Volume 86 fl (79-97); Platelet Count 204 K/mm3 (140-440)
[2021-11-22] MEDS: POLYETHYLENE GLYCOL 3350 17 GM POWDER PO SCH (10:18)
--- NOTE | 2021-11-22 11:25 | Progress Note ---
<LONNIE MAURICE - Last Filed: 11/22/21 19:17> Assessment and Plan Assessment and plan: This is a 81-year-old female with known history of diabetes mellitus, hypertension, PPM, and arthritis admitted for sepsis and acute hypoxia respiratory failure 2/2 bilateral pneumonia requiring intubation and ventilatory support Hospital Course to date: 11/04/2021: Empiric therapy with iv levaquin/vancomycin. COVID PCR pending. Will consult ID. PCCM consulted, will follow recs. Hypotensive this AM, ordered bolus and fluids at 150 cc/hr. May require pressor support if bp does not improve. 11/05/2021: GBS on bcx +, currently on rocephin IV. Currently on bipap due to respiratory distress overnight. Worsening BL opacities on CXR. May be volume overload vs pneumonia. Unfortunately bp too low for lasix at this point. WIll continue levophed and bipap. Once able to tolerate, may do trial of albumin/lasi x. Call attempt made to Niraj, no response. Will try again tomorrow to update. 11/06/2021: Decompensated overnight requiring intubation. CXR shows worsening interstitial infiltrates. Currenlty on dopamine, levophed, vasopressin. PICC line ordered. Advised RN to place gamble for I/O monitoring. Would benefit from diuresis but very volume overloaded. Prognosis guarded 11/08: Off sedation this am, remains unresponsive only grimace to pain. Hold all sedatives agents for now, patient is off pressors this am. Hypernatremia from today's lab- D5W X1bag, and low K repleted, repeat lab in the am. Severe constipation also noted from KUB, BR added. 11/09: Sudden SPO2 drop in the 60s this am. Patient was manually bagged and deep suctioned. Patient is currently stable on the vent, repeat CXR with no significant change. D/w CCM Mucomyst and brochodilator added. Patient mentation is unchanged, continue to hold off on sedative agents. Neurology consulted. 11/10: Acute DVT noted on bilateral lower extremity Doppler ultrasound therefore she was started on Lovenox treatment dose. Failed SBT. Hypernatremia and hyperchloremia noted, free water flush adjusted. 11/11: Patient noted to be febrile with increasing of the cytosis, UA/BC sent and CXR ordered. ID escalated antibiotics to cefepime. CXR demonstrated mucous plug, bedside bronchoscopy was performed and O ETT was changed over bougie from 6 cm to 7.5. Patient was noted to have a pneumothorax postprocedure and chest tube was placed. Family updated by [facility]. Free water flush increased and will add Jaswant supplementation. 11/12: Patient not noted to follow commands, hypernatremia worsen/persist, increasing free water flush, potassium and magnesium and phosphorus repleted. Hemoglobin noted to be 7.1/24.5 from 7.03/12 yesterday. We will continue to trend and monitor. Vent changes per [facility]. Repeat CXR showed no residual pneumo thorax. Consider waterseal tomorrow. Given persistent leukocytosis antibiotics escalated to cefepime per ID. 11/13: Remains on cefepime and vancomycin, vent changes per [facility]. Anemia noted and given 1 unit PRBC. And beta-charleen held in setting of Levophed drip infusing. Remains on fentanyl drip. 11/14: Patient put on CPAP trial by [facility], will continue chest tube until after extubation. Will rest on assist control. CT brain was cancelled by [employer] and reordered. 11/15: Patient removed chest tube overnight. Will obtain cxr. remains on low dose levo. CTH completed with no acute findings. RT to place on CPAP. 11/16: Hypernatremia/hyperchloremia noted on the increase of day water flushes. Anemia noted and ordered PRBC. asked RT to place on cpap but not done yet 11/17: Patient remains on the vent, awake and following commands. H&H stable s/p 2units PRBCs. GI on consult, no intervention at this time. Will continue protonix gtt and serial H&H Q6hrs. Keep patient NPO for now, D5w added for hypernatremia and NPO status. Plan for IVC filter placement today by Vascular. 11/18: Patient is s/p IVC filter. H&H continue to trend down, hbg 6.1 this am, 1 unit of PRBCs ordered. Plan for possible EGD today by GI. Keep patient NPO, continue PPI drip and serial H&H Q6hrs. Electrolytes repleted, repeat lab in the am 11/19: S/p EGD- larger duodenal ulcer noted, see operative note. GI recommendat ions noted also noted. H&H stable this am. Keep patient on protonix gtt for now. Will keep patient NPO, continue IVF and serial H&H for now. Electrolytes repleted, repeat labs in the am 2/3: Very agitated and restless this am, fentanyl gtt resumed. Patient remains on protonix gtt, H&H remains stable. Will switch protonix gtt to IV BID, continue carafate and okay to resume meds at this time. Will F/u with GI to see if TF can be resumed. Gamble was reinserted overnight for retention. Electrolytes repleted, repeat in the am. Plan for possible PST today for possible extubation per CCM. 11/21: Patient is now on seroquel and patient's home buspar resumed. Patient more calm this morning, fentanyl gtt is off. H&H remains stable and patient is tolerating TF. Patient had a runs of Vtach/PVCs this am, BB added per Cardio. Continue daily PS and wean trial for possible extubation. 11/22: Back on fentanyl gtt overnight , RASS o to -1, following commands. Patient failed PST this am due to increased work of breathing and low SPO2, ABG pending. Patient is also with worsen pitting edema, lasix is still on hold. Will discuss with cardio and CCM to possibly resume lasix. Assessment and Plan #Septic Shock POA #Bilateral Pneumonia #Bacteremia - Presented with fevers, leukocytosis, and hypotension - COVID PCR negative - 11/04 Bcult with 3/4 group B strep bacteremia - Repeat Bculture NGTD - 11/04 2D Echo with no evidence of vegetation - ID on consult, appreciate recommendations - Patient completed IV Abx course - F/u on culture data - Trend CBC #Acute Hypoxic Respiratory Failure / #Right Pneumothorax #Bilateral Pleural Effusion #Bilateral Pneumonia - COVID PCR negative - CXR shows Bilateral opacities, may be volume overloaded - CCM consulted, appreciate recommendations - Intubated on 11/06, ETT exchanged on 11/11 - 11/11 Bronchoscopy--Complicated by spontaneous pneumothorax - 11/11 S/p chest tube placement for right pneumothorax, removed by patient on 11/15 - 11/15 Repeat CXR with resolve Pneumo - This am Vent Setting:A/C-30%,6,14,400 - Today ABG pending - Continue Nebs treatmen - Continue daily PST as tolerated - VAP bundle addressed - Aspiration precaution HOB above 30 - ABG and CXR per CCM - Continue SPO2 monitoring for SPO2 goal above 92% #CHF- EF 30-35% with PPM #Hypotension-Resolved #Septic Kristian - Was on 3 pressors initially - BP remains stable - SR on the monitor, HR 70-90s - 11/04 Echo-EF 30-35% - Cardiology on consult - Continue beta-charleen - Not on aspirin due to allergy - Statins resumed - Continue blood pressure monitor per protocol - Maintain MAP above 65 #Acute Blood Loss #Acute GI Bleed #Acute Microcytic Anemia - Report of melena &black tarry stools - s/p a total of 5units of PRBCs since admit - H&H remains stable post EGD - GI on consult - 11/18 EGD- Large cratered ulcer in the posterior duodenal bulb about 2 cm in diameter. Visible vessel present. Mild active oozing from the ulcer bed. A total of 3 injections were performed around the ulcer for a total of 2.5 cc of dilute epinephrine and hemostasis was obtained.--> See full report - Protonix gtt switched to IV push BID - Continue Carafate - Patient is tolerating TF - Continue to trend CBC - Transfuse for H&H less than 7 - Hold AC for now #Hypokalemia #Hypernatremia-improved - Strict intake and output - Continue to monitor and replace electrolytes as needed - Trend BMP,mag, & phosp #Urinary Retention - Gamble reinserted on 11/19 for retention - Keep gamble for now, will reassess in 3 to 5days #Acute DVT in RLE - BLE doppler + Acute DVT in the right external iliac vein, common femoral vein, and superior aspect of femoral vein - Was on Therapeutic Lovenox- held to due GI Bleed - 11/17 s/p IVC filter placement by Vascular Surg #Agitation #Acute Encephalopathy-Resolved - Awake and agitated this am, following commands - Fentanyl gtt resumed, titrate for RASS goal of 0 to -1 - CT head noted - Neurology consulted - Resumed Buspar #Transaminitis/Shock Liver - Probably due to bacteria/spetic shock - Continue to Trend LFTs The high probability of a clinically significant, sudden or life threatening deterioration of the [multi] system(s) required my full and direct attention, intervention and personal management. The aggregate critical care time was [60] minutes. This time is in addition to time spent performing reported procedures but includes the following: [x] Data Review and interpretation [x] Patient assessment and monitoring of vital signs [x] Documentation [x] Medication orders and management Disposition Plan: ICU Total Time Spent with Patient (Minutes): 60 History Interval history: Patient seen and examined at the bedside. Patient remains on the vent. Still drowsy but following commands. Back on fentanyl gtt. Patient also failed PST this am due to increase work of breathing and low SPO2. MARIA DEL CARMEN overnight Hospitalist Physical - Constitutional Vitals: Temp Pulse Resp BP Pulse Ox 98.6 F 77 23 124/46 93 11/22/21 08:00 11/22/21 11:15 11/22/21 10:01 11/22/21 11:15 11/22/21 11:15 General appearance: Present: no acute distress, other (On the vent) - EENT Eyes: Present: PERRL ENT: hearing intact - Neck Neck: Present: normal ROM - Respiratory Respiratory effort: normal Respiratory: bilateral: rhonchi - Cardiovascular Rhythm: regular Heart Sounds: Present: S1 & S2 - Extremities Extremities: no ischemia, pulses intact, pulses symmetrical Extremity abnormal: edema - Peripheral Assessment Generalized Edema Type: Pitting Edema Degree: 3+ Capillary Refill: < 3 seconds Skin Temperature: Warm Peripheral Pulses: within normal limits - Abdominal General gastrointestinal: soft, non-distended, normal bowel sounds - Integumentary Integumentary: Present: warm, dry - Psychiatric Psychiatric: appropriate mood/affect, cooperative - Neurologic Neurologic: moves all extremities - Allied Health Allied health notes reviewed: nursing HEART Score - HEART Score Troponin: Troponin T 0.033 ng/mL (0.00-0.029) H 11/05/21 06:11 Results - Labs CBC & Chem 7: 11/22/21 07:07 11/22/21 07:07 Labs: Laboratory Last Values WBC 10.1 K/mm3 (4.5-11.0) 11/22/21 07:07 RBC 3.30 M/mm3 (3.65-5.03) L 11/22/21 07:07 Hgb 9.0 gm/dl (10.1-14.3) L 11/22/21 07:07 Hct 28.5 % (30.3-42.9) L 11/22/21 07:07 MCV 86 fl (79-97) 11/22/21 07:07 MCH 27 pg (28-32) L 11/22/21 07:07 MCHC 32 % (30-34) 11/22/21 07:07 RDW 21.0 % (13.2-15.2) H 11/22/21 07:07 Plt Count 204 K/mm3 (140-440) 11/22/21 07:07 Add Manual Diff Complete 11/16/21 15:25 Total Counted 100 11/16/21 15:25 Seg Neutrophils % [employer] Consultant 11/06/21 15:50 Seg Neuts % (Manual) 87.0 % (40.0-70.0) H 11/16/21 15:25 Band Neutrophils % 0 % 11/16/21 15:25 Lymphocytes % (Manual) 8.0 % (13.4-35.0) L 11/16/21 15:25 Reactive Lymphs % (Man) 0 % 11/16/21 15:25 Monocytes % (Manual) 5.0 % (0.0-7.3) 11/16/21 15:25 Eosinophils % (Manual) 0 % (0.0-4.3) 11/16/21 15:25 Basophils % (Manual) 0 % (0.0-1.8) 11/16/21 15:25 Metamyelocytes % 0 % 11/16/21 15:25 Myelocytes % 0 % 11/16/21 15:25 Promyelocytes % 0 % 11/16/21 15:25 Blast Cells % 0 % 11/16/21 15:25 Nucleated RBC % Not Reportable 11/16/21 15:25 Seg Neutrophils # Man 15.0 K/mm3 (1.8-7.7) H 11/16/21 15:25 Band Neutrophils # 0.0 K/mm3 11/16/21 15:25 Lymphocytes # (Manual) 1.4 K/mm3 (1.2-5.4) 11/16/21 15:25 Abs React Lymphs (Man) 0.0 K/mm3 11/16/21 15:25 Monocytes # (Manual) 0.9 K/mm3 (0.0-0.8) H 11/16/21 15:25 Eosinophils # (Manual) 0.0 K/mm3 (0.0-0.4) 11/16/21 15:25 Basophils # (Manual) 0.0 K/mm3 (0.0-0.1) 11/16/21 15:25 Metamyelocytes # 0.0 K/mm3 11/16/21 15:25 Myelocytes # 0.0 K/mm3 11/16/21 15:25 Promyelocytes # 0.0 K/mm3 11/16/21 15:25 Blast Cells # 0.0 K/mm3 11/16/21 15:25 WBC Morphology Not Reportable 11/16/21 15:25 Hypersegmented Neuts Not Reportable 11/16/21 15:25 Hyposegmented Neuts Not Reportable 11/16/21 15:25 Hypogranular Neuts Not Reportable 11/16/21 15:25 Smudge Cells Not Reportable 11/16/21 15:25 Toxic Granulation Not Reportable 11/16/21 15:25 Toxic Vacuolation Not Reportable 11/16/21 15:25 Dohle Bodies Not Reportable 11/16/21 15:25 Pelger-Huet Anomaly Not Reportable 11/16/21 15:25 Irina Rods Not Reportable 11/16/21 15:25 Platelet Estimate Consistent w auto 11/16/21 15:25 Clumped Platelets Rare 11/16/21 15:25 Plt Clumps, EDTA Not Reportable 11/16/21 15:25 Large Platelets Not Reportable 11/16/21 15:25 Giant Platelets Not Reportable 11/16/21 15:25 Platelet Satelliting Not Reportable 11/16/21 15:25 Plt Morphology Comment Not Reportable 11/16/21 15:25 RBC Morphology Not Reportable 11/16/21 15:25 Dimorphic RBCs Not Reportable 11/16/21 15:25 Polychromasia Not Reportable 11/16/21 15:25 Hypochromasia 2+ 11/16/21 15:25 Poikilocytosis Not Reportable 11/16/21 15:25 Anisocytosis 2+ 11/16/21 15:25 Microcytosis Not Reportable 11/16/21 15:25 Macrocytosis Not Reportable 11/16/21 15:25 Spherocytes Not Reportable 11/16/21 15:25 Pappenheimer Bodies Not Reportable 11/16/21 15:25 Sickle Cells Not Reportable 11/16/21 15:25 Target Cells 2+ 11/16/21 15:25 Tear Drop Cells Not Reportable 11/16/21 15:25 Ovalocytes Not Reportable 11/16/21 15:25 Helmet Cells Not Reportable 11/16/21 15:25 Odonnell-Mansura Bodies Not Reportable 11/16/21 15:25 [place] Rings Not Reportable 11/16/21 15:25 Malcom Cells Not Reportable 11/16/21 15:25 Bite Cells Not Reportable 11/16/21 15:25 Crenated Cell Not Reportable 11/16/21 15:25 Elliptocytes Not Reportable 11/16/21 15:25 Acanthocytes (Spur) Not Reportable 11/16/21 15:25 Rouleaux Not Reportable 11/16/21 15:25 Hemoglobin C Crystals Not Reportable 11/16/21 15:25 Schistocytes Not Reportable 11/16/21 15:25 Malaria parasites Not Reportable 11/16/21 15:25 Godfrey Bodies Not Reportable 11/16/21 15:25 Hem Pathologist Commnt No 11/16/21 15:25 PT 18.6 Sec. (12.2-14.9) H 11/03/21 22:32 INR 1.40 (0.87-1.13) H 11/03/21 22:32 APTT 28.9 Sec. (24.2-36.6) 11/03/21 22:32 D-Dimer 2655.00 ng/mlDDU (0-234) H 11/11/21 04:28 ABG pH 7.449 pH Units (7.350-7.450) 11/21/21 16:00 ABG pCO2 32.1 mm Hg 11/21/21 16:00 ABG pO2 114.2 mm Hg (80.0-90.0) H 11/21/21 16:00 ABG HCO3 21.8 mmol/L (20.0-26.0) 11/21/21 16:00 ABG O2 Saturation 98.3 % (95.0-99.0) 11/21/21 16:00 ABG O2 Content 12.5 (0.0-44) 11/21/21 16:00 ABG Base Excess -1.7 mmol/L (-2.0-3.0) 11/21/21 16:00 ABG Hemoglobin 9.1 gm/dl (12.0-16.0) L 11/21/21 16:00 ABG Carboxyhemoglobin 1.9 % (0.0-5.0) 11/21/21 16:00 ABG Methemoglobin 0.5 % (0.0-1.5) 11/21/21 16:00 Oxyhemoglobin 96.0 % (95.0-99.0) 11/21/21 16:00 FiO2 30 % 11/21/21 16:00 Sodium 139 mmol/L (137-145) 11/22/21 07:07 Potassium 4.7 mmol/L (3.6-5.0) 11/22/21 07:07 Chloride 107.0 mmol/L (98-107) 11/22/21 07:07 Carbon Dioxide 22 mmol/L (22-30) 11/22/21 07:07 Anion Gap 15 mmol/L 11/22/21 07:07 BUN 32 mg/dL (7-17) H 11/22/21 07:07 Creatinine 1.0 mg/dL (0.6-1.2) 11/22/21 07:07 Estimated GFR 53 ml/min 11/22/21 07:07 BUN/Creatinine Ratio 32 % 11/22/21 07:07 Glucose 106 mg/dL (65-100) H 11/22/21 07:07 POC Glucose 91 mg/dL (70-105) 11/22/21 05:45 Lactic Acid 3.70 mmol/L (0.7-2.0) H* 11/03/21 22:32 Calcium 7.5 mg/dL (8.4-10.2) L 11/22/21 07:07 Phosphorus 3.30 mg/dL (2.5-4.5) 11/22/21 07:07 Magnesium 1.90 mg/dL (1.7-2.3) 11/22/21 07:07 Ferritin 52.6 ng/mL (10.0-200.0) 11/05/21 06:11 Total Bilirubin 0.50 mg/dL (0.1-1.2) 11/17/21 05:56 Direct Bilirubin < 0.2 mg/dL (0-0.2) 11/11/21 04:28 Indirect Bilirubin 0.1 mg/dL 11/11/21 04:28 AST 36 units/L (5-40) 11/17/21 05:56 ALT 47 units/L (7-56) 11/17/21 05:56 Alkaline Phosphatase 107 units/L (35-129) 11/17/21 05:56 Ammonia 42.0 umol/L (25-60) 11/10/21 14:08 Lactate Dehydrogenase 187 units/L (91-180) H 11/05/21 06:11 Troponin T 0.033 ng/mL (0.00-0.029) H 11/05/21 06:11 C-Reactive Protein 22.20 mg/dL (0.00-1.30) H 11/05/21 06:11 NT-Pro-B Natriuret Pep 7895 pg/mL (0-900) H 11/03/21 22:32 Total Protein 5.1 g/dL (6.3-8.2) L 11/17/21 05:56 Albumin 2.2 g/dL (3.9-5) L 11/17/21 05:56 Albumin/Globulin Ratio 0.8 % 11/17/21 05:56 Triglycerides 66 mg/dL (2-149) 11/03/21 22:32 Cholesterol 80 mg/dL (50-199) 11/03/21 22:32 LDL Cholesterol Direct 34 mg/dL (50-130) L 11/03/21 22:32 HDL Cholesterol 42 mg/dL (40-59) 11/03/21 22:32 Cholesterol/HDL Ratio 1.90 % 11/03/21 22:32 Vitamin B12 1823 pg/mL (211-911) H 11/10/21 14:08 TSH 1.510 mlU/mL (0.270-4.200) 11/10/21 14:08 Urine Color Yellow (Yellow) 11/11/21 09:00 Urine Turbidity Slightly-cloudy (Clear) 11/11/21 09:00 Urine pH 5.0 (5.0-7.0) 11/11/21 09:00 Ur Specific [place] 1.009 (1.003-1.030) 11/11/21 09:00 Urine Protein <15 mg/dl mg/dL (Negative) 11/11/21 09:00 Urine Glucose (UA) Neg mg/dL (Negative) 11/11/21 09:00 Urine Ketones Neg mg/dL (Negative) 11/11/21 09:00 Urine Blood Mod (Negative) 11/11/21 09:00 Urine Nitrite Neg (Negative) 11/11/21 09:00 Urine Bilirubin Neg (Negative) 11/11/21 09:00 Urine Urobilinogen < 2.0 mg/dL (<2.0) 11/11/21 09:00 Ur Leukocyte Esterase Neg (Negative) 11/11/21 09:00 Urine WBC (Auto) < 1.0 /HPF (0.0-6.0) 11/11/21 09:00 Urine RBC (Auto) < 1.0 /HPF (0.0-6.0) 11/11/21 09:00 Coronavirus (PCR) Negative (Negative) 11/10/21 08:30 Blood Type O POSITIVE 11/18/21 10:45 Antibody Screen Negative 11/18/21 10:45 Crossmatch See Detail 11/18/21 10:45 Gamble/IV: Voiding Method Incontinent Active Medications - Current Medications Current Medications: Generic Name Dose Route Start Last Admin Trade Name Freq PRN Reason Stop Dose Admin Acetaminophen 650 mg 11/04/21 02:03 11/16/21 15:43 Acetaminophen 325 Mg Tab PO 650 mg Q6H PRN Administration Pain MILD(1-3)/Fever >100.5/RODRIGUEZ Hydrocodone Bitart/Acetaminophen 1 each 11/21/21 10:00 11/22/21 10:17 Hydrocodone/Acetaminophen 10-325mg Tab FEEDTUBE 1 each TID YOSSI Administration Lipase/Protease/Amylase 1 each 11/08/21 11:09 Lipase 10,500/Protease 25,000/Amylase 43,750 (Units) Dr Lema FEEDTUBE PRN PRN For Clogged Feeding Tube Buspirone HCl 7.5 mg 11/17/21 22:00 11/22/21 10:15 Buspirone 5 Mg Tab PO 7.5 mg BID YOSSI Administration Dextrose 0 ml 11/10/21 10:52 11/21/21 16:27 Dextrose 10% *Hypoglycemia IV 50 ml PRN PRN Administration Hypoglycemia Docusate Sodium 100 mg 01/22/22 12:00 11/22/21 10:17 Docusate Sodium 100 Mg/10 Ml Oral Liqd PO 100 mg BID YOSSI Administration Fentanyl 1 applic 11/17/21 13:00 11/20/21 09:07 Fentanyl 25 Mcg/Hr Patch 72hr TD 1 applic Q3D YOSSI Administration Hydrophilic Ointment 1 applic 11/06/21 04:02 Lip Therapy Vaseline TP Q2HR PRN Dry Lips NORepinephrine/NS 8 MG-250 ML 8 mg in 250 mls @ 3.75 mls/hr 11/05/21 09:00 11/18/21 03:26 Norepinephrine/Ns 8 Mg-250 Ml (Double Conc) IV 0 mcg/min TITRATE YOSSI 0 mls/hr Titration Protocol 2 MCG/MIN Fentanyl Citrate 2,000 mcg in 100 mls @ 3.12 mls/hr 11/17/21 13:00 11/22/21 10:19 Fentanyl Drip Premix IV 0 mcg/kg/hr TITR YOSSI 0 mls/hr Titration Protocol 1 MCG/KG/HR Insulin Human Lispro 0 unit 11/06/21 12:00 11/22/21 06:45 Insulin Lispro 100 Unit/Ml SUB-Q Not Given Q6HR [facility] Protocol Levothyroxine Sodium 125 mcg 11/05/21 07:00 11/22/21 07:10 Levothyroxine 125 Mcg Tab PO 125 mcg DAILY@0600 [facility] Administration Magnesium Hydroxide 30 ml 11/04/21 02:03 Magnesium Hydroxide (Mom) Oral Liqd Udc PO Q4H PRN Constipation Metoprolol Tartrate 12.5 mg 11/21/21 10:00 11/22/21 10:16 Metoprolol Tartrate 25 Mg Tab PO 12.5 mg BID [facility] Administration Multi-Ingred Cream/Lotion/Oil/Oint 1 applic 11/06/21 04:02 Mineral Oil/Petrolatum, White Ophth Oint 3.5 Gm OU Q4HR PRN Dry Eye(s) Ondansetron HCl 4 mg 11/04/21 02:03 11/05/21 15:48 Ondansetron 4 Mg/2 Ml Inj IV 4 mg Q8H PRN Administration Nausea And Vomiting Pantoprazole Sodium 40 mg 11/20/21 22:00 11/22/21 10:18 Pantoprazole 40 Mg Inj IV 40 mg BID YOSSI Administration Polyethylene Glycol 17 gm 11/08/21 12:00 11/22/21 10:18 Polyethylene Glycol 3350 17 Gm Powder PO Not Given QDAY YOSSI Pravastatin Sodium 20 mg 11/18/21 22:00 11/22/21 00:16 Pravastatin 20 Mg Tab PO 20 mg QHS YOSSI Administration Quetiapine Fumarate 50 mg 11/20/21 22:00 11/22/21 10:16 Quetiapine 25 Mg Tab PO 50 mg BID YOSSI Administration Senna 17.6 mg 11/08/21 22:00 11/22/21 10:18 Sennosides Oral Liqd 8.8 Mg/5 Ml Oral Liqd PO Not Given Q12HR YOSSI Simple Syrup 15 ml 11/08/21 11:09 Simple Syrup 15 Ml FEEDTUBE PRN PRN Hypoglycemia Simple Syrup 30 ml 11/08/21 11:09 Simple Syrup 15 Ml FEEDTUBE PRN PRN Hypoglycemia Sodium Bicarbonate 325 mg 11/08/21 11:09 Sodium Bicarbonate 325 Mg Tab FEEDTUBE PRN PRN For Clogged Feeding Tube Sodium Chloride 10 ml 11/04/21 10:00 11/22/21 10:18 Sodium Chloride 0.9% 10 Ml Flush Syringe IV 10 ml BID YOSSI Administration Sodium Chloride 10 ml 11/04/21 02:03 Sodium Chloride 0.9% 10 Ml Flush Syringe IV PRN PRN LINE FLUSH Sodium Chloride 10 ml 11/10/21 09:57 11/17/21 20:47 Sodium Chloride 0.9% 50 Ml Ivpb IV 10 ml PRN PRN Administration FLUSH Sucralfate 1 gm 11/18/21 16:30 11/22/21 10:15 Sucralfate 1 Gm/10 Ml Oral Liqd PO 1 gm ACHS YOSSI Administration Nutrition/Malnutrition Assess - Dietary Evaluation Nutrition/Malnutrition Findings: Nutrition Notes Start: 11/04/21 17:16 Freq: Status: Active Protocol: Document 11/20/21 15:54 ISABELL (Rec: 11/20/21 16:31 ISABELL [id number]) Nutrition Notes Initial or Follow up Reassessment Current Diagnosis Decubitus(Pressure Ulcer), Diabetes,Sepsis,Hypertension, Respiratory Failure Other Pertinent Diagnosis Septic shock, Bilateral Pneumonia, Lower Extremity Cellulitis. Current Diet TF-Glucerna 1.2 Tamir @ 42 ml/hr (since D 11/20). Labs/Tests 11/20: K 3.5, Cl 108.9, BUN 37 , Glu 117. Pertinent Medications 11/20: D5w 1000 ml @ 75 ml/hr, others nutritionally unremarkable. Height 5 ft Weight 62.4 kg [place] Body Weight (kg) 45.45 BMI 26.9 Weight change and time frame No body weight change reported . Weight Status Appropriate Subjective/Other Information RD consult for routine F/U on TF resume. Pt continues on mechanical ventilation. MD indication to Resume TF. Percent of energy/protein needs met: Prescribed Glucerna 1.2 Tamir @ 42 ml/hr provides for energy/ protein needs (1,208 Kcal/60 g ) during LOS, 100% Kcal; 81% AA. Burn Absent Trauma Absent GI Symptoms Diarrhea Difficulty In Swallowing,Chewing Food Allergy No Skin Integrity/Comment Lower Extremities Pressure Ulcer. Current % PO Other Minimum of two criteria No #1 Nutrition Diagnosis Inadequate oral intake Comments: Pt continues on mechanical ventilation. MD indication to Resume TF. Diagnosis Progress(for reassessment Continues documentation) Is patient on ventilator? Yes Is Patient Ambulatory and/or Out of Bed No REE-([place]-St. Jeor-confined to bed) 1207.824 Calculation Used for Recommendations [facility] Additional Notes Protein: 1.2-2 g/Kg; 75-125 g/ day. Fluids: 1 ml/Kcal, or as per MD. Nutrition Intervention Nutrition Support: Start Glucerna 1.2 Tamir @ 42 ml /hr. Flush: 70 ml water Q 4 hr, or as per MD. Kcal 1,208 Protein (gm) 60 Carbohydrates (gm) 115 Fat (gm) 60 Fluid (mL) 810 Fiber (gm) 16 % RDI: 100% Kcal; 81% AA. Goal #1 Provide at least 75% of energy /protein needs through Enteral Feeding during LOS. Goal #2 Maintain body weight within +/ -3% of admission body weight during LOS. Follow-Up By: 11/24/21 Additional Comments Continue monitoring TF tolerance and BM. <LEAH ALFONSO - Last Filed: 11/23/21 07:19> Assessment and Plan Assessment and plan: I saw and evaluated the patient. I agree with the findings and the plan of care as documented in the Nurse Practitioner's~note, with the following corrections and additions. Hospitalist Physical - Constitutional Vitals: Temp Pulse Resp BP Pulse Ox 98.6 F 85 14 129/54 100 11/23/21 04:00 11/23/21 07:00 11/23/21 07:00 11/23/21 07:00 11/23/21 07:00 HEART Score - HEART Score Troponin: Troponin T 0.033 ng/mL (0.00-0.029) H 11/05/21 06:11 Results - Labs CBC & Chem 7: 11/23/21 04:38 11/23/21 04:38 Labs: Laboratory Last Values WBC 9.3 K/mm3 (4.5-11.0) 11/23/21 04:38 RBC 3.23 M/mm3 (3.65-5.03) L 11/23/21 04:38 Hgb 8.8 gm/dl (10.1-14.3) L 11/23/21 04:38 Hct 28.0 % (30.3-42.9) L 11/23/21 04:38 MCV 87 fl (79-97) 11/23/21 04:38 MCH 27 pg (28-32) L 11/23/21 04:38 MCHC 32 % (30-34) 11/23/21 04:38 RDW 21.3 % (13.2-15.2) H 11/23/21 04:38 Plt Count 227 K/mm3 (140-440) 11/23/21 04:38 Add Manual Diff Complete 11/16/21 15:25 Total Counted 100 11/16/21 15:25 Seg Neutrophils % [employer] Consultant 11/06/21 15:50 Seg Neuts % (Manual) 87.0 % (40.0-70.0) H 11/16/21 15:25 Band Neutrophils % 0 % 11/16/21 15:25 Lymphocytes % (Manual) 8.0 % (13.4-35.0) L 11/16/21 15:25 Reactive Lymphs % (Man) 0 % 11/16/21 15:25 Monocytes % (Manual) 5.0 % (0.0-7.3) 11/16/21 15:25 Eosinophils % (Manual) 0 % (0.0-4.3) 11/16/21 15:25 Basophils % (Manual) 0 % (0.0-1.8) 11/16/21 15:25 Metamyelocytes % 0 % 11/16/21 15:25 Myelocytes % 0 % 11/16/21 15:25 Promyelocytes % 0 % 11/16/21 15:25 Blast Cells % 0 % 11/16/21 15:25 Nucleated RBC % Not Reportable 11/16/21 15:25 Seg Neutrophils # Man 15.0 K/mm3 (1.8-7.7) H 11/16/21 15:25 Band Neutrophils # 0.0 K/mm3 11/16/21 15:25 Lymphocytes # (Manual) 1.4 K/mm3 (1.2-5.4) 11/16/21 15:25 Abs React Lymphs (Man) 0.0 K/mm3 11/16/21 15:25 Monocytes # (Manual) 0.9 K/mm3 (0.0-0.8) H 11/16/21 15:25 Eosinophils # (Manual) 0.0 K/mm3 (0.0-0.4) 11/16/21 15:25 Basophils # (Manual) 0.0 K/mm3 (0.0-0.1) 11/16/21 15:25 Metamyelocytes # 0.0 K/mm3 11/16/21 15:25 Myelocytes # 0.0 K/mm3 11/16/21 15:25 Promyelocytes # 0.0 K/mm3 11/16/21 15:25 Blast Cells # 0.0 K/mm3 11/16/21 15:25 WBC Morphology Not Reportable 11/16/21 15:25 Hypersegmented Neuts Not Reportable 11/16/21 15:25 Hyposegmented Neuts Not Reportable 11/16/21 15:25 Hypogranular Neuts Not Reportable 11/16/21 15:25 Smudge Cells Not Reportable 11/16/21 15:25 Toxic Granulation Not Reportable 11/16/21 15:25 Toxic Vacuolation Not Reportable 11/16/21 15:25 Dohle Bodies Not Reportable 11/16/21 15:25 Pelger-Huet Anomaly Not Reportable 11/16/21 15:25 Irina Rods Not Reportable 11/16/21 15:25 Platelet Estimate Consistent w auto 11/16/21 15:25 Clumped Platelets Rare 11/16/21 15:25 Plt Clumps, EDTA Not Reportable 11/16/21 15:25 Large Platelets Not Reportable 11/16/21 15:25 Giant Platelets Not Reportable 11/16/21 15:25 Platelet Satelliting Not Reportable 11/16/21 15:25 Plt Morphology Comment Not Reportable 11/16/21 15:25 RBC Morphology Not Reportable 11/16/21 15:25 Dimorphic RBCs Not Reportable 11/16/21 15:25 Polychromasia Not Reportable 11/16/21 15:25 Hypochromasia 2+ 11/16/21 15:25 Poikilocytosis Not Reportable 11/16/21 15:25 Anisocytosis 2+ 11/16/21 15:25 Microcytosis Not Reportable 11/16/21 15:25 Macrocytosis Not Reportable 11/16/21 15:25 Spherocytes Not Reportable 11/16/21 15:25 Pappenheimer Bodies Not Reportable 11/16/21 15:25 Sickle Cells Not Reportable 11/16/21 15:25 Target Cells 2+ 11/16/21 15:25 Tear Drop Cells Not Reportable 11/16/21 15:25 Ovalocytes Not Reportable 11/16/21 15:25 Helmet Cells Not Reportable 11/16/21 15:25 Odonnell-Mansura Bodies Not Reportable 11/16/21 15:25 [place] Rings Not Reportable 11/16/21 15:25 Malcom Cells Not Reportable 11/16/21 15:25 Bite Cells Not Reportable 11/16/21 15:25 Crenated Cell Not Reportable 11/16/21 15:25 Elliptocytes Not Reportable 11/16/21 15:25 Acanthocytes (Spur) Not Reportable 11/16/21 15:25 Rouleaux Not Reportable 11/16/21 15:25 Hemoglobin C Crystals Not Reportable 11/16/21 15:25 Schistocytes Not Reportable 11/16/21 15:25 Malaria parasites Not Reportable 11/16/21 15:25 Godfrey Bodies Not Reportable 11/16/21 15:25 Hem Pathologist Commnt No 11/16/21 15:25 PT 18.6 Sec. (12.2-14.9) H 11/03/21 22:32 INR 1.40 (0.87-1.13) H 11/03/21 22:32 APTT 28.9 Sec. (24.2-36.6) 11/03/21 22:32 D-Dimer 2655.00 ng/mlDDU (0-234) H 11/11/21 04:28 ABG pH 7.449 pH Units (7.350-7.450) 11/21/21 16:00 ABG pCO2 32.1 mm Hg 11/21/21 16:00 ABG pO2 114.2 mm Hg (80.0-90.0) H 11/21/21 16:00 ABG HCO3 21.8 mmol/L (20.0-26.0) 11/21/21 16:00 ABG O2 Saturation 98.3 % (95.0-99.0) 11/21/21 16:00 ABG O2 Content 12.5 (0.0-44) 11/21/21 16:00 ABG Base Excess -1.7 mmol/L (-2.0-3.0) 11/21/21 16:00 ABG Hemoglobin 9.1 gm/dl (12.0-16.0) L 11/21/21 16:00 ABG Carboxyhemoglobin 1.9 % (0.0-5.0) 11/21/21 16:00 ABG Methemoglobin 0.5 % (0.0-1.5) 11/21/21 16:00 Oxyhemoglobin 96.0 % (95.0-99.0) 11/21/21 16:00 FiO2 30 % 11/21/21 16:00 Sodium 136 mmol/L (137-145) L 11/23/21 04:38 Potassium 4.4 mmol/L (3.6-5.0) 11/23/21 04:38 Chloride 106.5 mmol/L (98-107) 11/23/21 04:38 Carbon Dioxide 20 mmol/L (22-30) L 11/23/21 04:38 Anion Gap 14 mmol/L 11/23/21 04:38 BUN 32 mg/dL (7-17) H 11/23/21 04:38 Creatinine 0.9 mg/dL (0.6-1.2) 11/23/21 04:38 Estimated GFR 60 ml/min 11/23/21 04:38 BUN/Creatinine Ratio 36 % 11/23/21 04:38 Glucose 109 mg/dL (65-100) H 11/23/21 04:38 POC Glucose 115 mg/dL (70-105) H 11/23/21 06:01 Lactic Acid 3.70 mmol/L (0.7-2.0) H* 11/03/21 22:32 Calcium 7.7 mg/dL (8.4-10.2) L 11/23/21 04:38 Phosphorus 3.30 mg/dL (2.5-4.5) 11/22/21 07:07 Magnesium 1.90 mg/dL (1.7-2.3) 11/22/21 07:07 Ferritin 52.6 ng/mL (10.0-200.0) 11/05/21 06:11 Total Bilirubin 0.50 mg/dL (0.1-1.2) 11/17/21 05:56 Direct Bilirubin < 0.2 mg/dL (0-0.2) 11/11/21 04:28 Indirect Bilirubin 0.1 mg/dL 11/11/21 04:28 AST 36 units/L (5-40) 11/17/21 05:56 ALT 47 units/L (7-56) 11/17/21 05:56 Alkaline Phosphatase 107 units/L (35-129) 11/17/21 05:56 Ammonia 42.0 umol/L (25-60) 11/10/21 14:08 Lactate Dehydrogenase 187 units/L (91-180) H 11/05/21 06:11 Troponin T 0.033 ng/mL (0.00-0.029) H 11/05/21 06:11 C-Reactive Protein 22.20 mg/dL (0.00-1.30) H 11/05/21 06:11 NT-Pro-B Natriuret Pep 7895 pg/mL (0-900) H 11/03/21 22:32 Total Protein 5.1 g/dL (6.3-8.2) L 11/17/21 05:56 Albumin 2.2 g/dL (3.9-5) L 11/17/21 05:56 Albumin/Globulin Ratio 0.8 % 11/17/21 05:56 Triglycerides 66 mg/dL (2-149) 11/03/21 22:32 Cholesterol 80 mg/dL (50-199) 11/03/21 22:32 LDL Cholesterol Direct 34 mg/dL (50-130) L 11/03/21 22:32 HDL Cholesterol 42 mg/dL (40-59) 11/03/21 22:32 Cholesterol/HDL Ratio 1.90 % 11/03/21 22:32 Vitamin B12 1823 pg/mL (211-911) H 11/10/21 14:08 TSH 1.510 mlU/mL (0.270-4.200) 11/10/21 14:08 Urine Color Yellow (Yellow) 11/11/21 09:00 Urine Turbidity Slightly-cloudy (Clear) 11/11/21 09:00 Urine pH 5.0 (5.0-7.0) 11/11/21 09:00 Ur Specific [place] 1.009 (1.003-1.030) 11/11/21 09:00 Urine Protein <15 mg/dl mg/dL (Negative) 11/11/21 09:00 Urine Glucose (UA) Neg mg/dL (Negative) 11/11/21 09:00 Urine Ketones Neg mg/dL (Negative) 11/11/21 09:00 Urine Blood Mod (Negative) 11/11/21 09:00 Urine Nitrite Neg (Negative) 11/11/21 09:00 Urine Bilirubin Neg (Negative) 11/11/21 09:00 Urine Urobilinogen < 2.0 mg/dL (<2.0) 11/11/21 09:00 Ur Leukocyte Esterase Neg (Negative) 11/11/21 09:00 Urine WBC (Auto) < 1.0 /HPF (0.0-6.0) 11/11/21 09:00 Urine RBC (Auto) < 1.0 /HPF (0.0-6.0) 11/11/21 09:00 Coronavirus (PCR) Negative (Negative) 11/10/21 08:30 Blood Type O POSITIVE 11/18/21 10:45 Antibody Screen Negative 11/18/21 10:45 Crossmatch See Detail 11/18/21 10:45 Gamble/IV: Voiding Method Indwelling Catheter Active Medications - Current Medications Current Medications: Generic Name Dose Route Start Last Admin Trade Name Freq PRN Reason Stop Dose Admin Acetaminophen 650 mg 11/04/21 02:03 11/16/21 15:43 Acetaminophen 325 Mg Tab PO 650 mg Q6H PRN Administration Pain MILD(1-3)/Fever >100.5/RODRIGUEZ Hydrocodone Bitart/Acetaminophen 1 each 11/21/21 10:00 11/22/21 21:24 Hydrocodone/Acetaminophen 10-325mg Tab FEEDTUBE 1 each TID YOSSI Administration Lipase/Protease/Amylase 1 each 11/08/21 11:09 Lipase 10,500/Protease 25,000/Amylase 43,750 (Units) Dr Cap FEEDTUBE PRN PRN For Clogged Feeding Tube Buspirone HCl 7.5 mg 11/17/21 22:00 11/22/21 21:23 Buspirone 5 Mg Tab PO 7.5 mg BID YOSSI Administration Dextrose 0 ml 11/10/21 10:52 11/21/21 16:27 Dextrose 10% *Hypoglycemia IV 50 ml PRN PRN Administration Hypoglycemia Docusate Sodium 100 mg 11/08/21 12:00 11/22/21 21:23 Docusate Sodium 100 Mg/10 Ml Oral Liqd PO 100 mg BID YOSSI Administration Fentanyl 1 applic 11/17/21 13:00 11/20/21 09:07 Fentanyl 25 Mcg/Hr Patch 72hr TD 1 applic Q3D YOSSI Administration Hydrophilic Ointment 1 applic 11/06/21 04:02 Lip Therapy Vaseline TP Q2HR PRN Dry Lips NORepinephrine/NS 8 MG-250 ML 8 mg in 250 mls @ 3.75 mls/hr 11/05/21 09:00 11/18/21 03:26 Norepinephrine/Ns 8 Mg-250 Ml (Double Conc) IV 0 mcg/min TITRATE YOSSI 0 mls/hr Titration Protocol 2 MCG/MIN Fentanyl Citrate 2,000 mcg in 100 mls @ 3.12 mls/hr 11/17/21 13:00 11/22/21 18:04 Fentanyl Drip Premix IV 0 mcg/kg/hr TITR YOSSI 0 mls/hr Titration Protocol 1 MCG/KG/HR Insulin Human Lispro 0 unit 11/06/21 12:00 11/23/21 05:43 Insulin Lispro 100 Unit/Ml SUB-Q Not Given Q6HR YOSSI Protocol Levothyroxine Sodium 125 mcg 11/05/21 07:00 11/23/21 05:49 Levothyroxine 125 Mcg Tab PO 125 mcg DAILY@0600 [facility] Administration Magnesium Hydroxide 30 ml 11/04/21 02:03 Magnesium Hydroxide (Mom) Oral Liqd Udc PO Q4H PRN Constipation Metoprolol Tartrate 12.5 mg 11/21/21 10:00 11/22/21 21:26 Metoprolol Tartrate 25 Mg Tab PO 12.5 mg BID [facility] Administration Multi-Ingred Cream/Lotion/Oil/Oint 1 applic 11/06/21 04:02 Mineral Oil/Petrolatum, White Ophth Oint 3.5 Gm OU Q4HR PRN Dry Eye(s) Ondansetron HCl 4 mg 11/04/21 02:03 11/05/21 15:48 Ondansetron 4 Mg/2 Ml Inj IV 4 mg Q8H PRN Administration Nausea And Vomiting Pantoprazole Sodium 40 mg 11/20/21 22:00 11/22/21 21:23 Pantoprazole 40 Mg Inj IV 40 mg BID YOSSI Administration Polyethylene Glycol 17 gm 11/08/21 12:00 11/22/21 10:18 Polyethylene Glycol 3350 17 Gm Powder PO Not Given QDAY [facility] Pravastatin Sodium 20 mg 11/18/21 22:00 11/22/21 21:25 Pravastatin 20 Mg Tab PO 20 mg QHS [facility] Administration Quetiapine Fumarate 50 mg 11/20/21 22:00 11/22/21 21:25 Quetiapine 25 Mg Tab PO 50 mg BID [facility] Administration Senna 17.6 mg 11/08/21 22:00 11/22/21 21:23 Sennosides Oral Liqd 8.8 Mg/5 Ml Oral Liqd PO 17.6 mg Q12HR YOSSI Administration Simple Syrup 15 ml 11/08/21 11:09 Simple Syrup 15 Ml FEEDTUBE PRN PRN Hypoglycemia Simple Syrup 30 ml 11/08/21 11:09 Simple Syrup 15 Ml FEEDTUBE PRN PRN Hypoglycemia Sodium Bicarbonate 325 mg 11/08/21 11:09 Sodium Bicarbonate 325 Mg Tab FEEDTUBE PRN PRN For Clogged Feeding Tube Sodium Chloride 10 ml 11/04/21 10:00 11/22/21 21:26 Sodium Chloride 0.9% 10 Ml Flush Syringe IV 10 ml BID YOSSI Administration Sodium Chloride 10 ml 11/04/21 02:03 Sodium Chloride 0.9% 10 Ml Flush Syringe IV PRN PRN LINE FLUSH Sodium Chloride 10 ml 11/10/21 09:57 11/17/21 20:47 Sodium Chloride 0.9% 50 Ml Ivpb IV 10 ml PRN PRN Administration FLUSH Sucralfate 1 gm 11/18/21 16:30 11/22/21 21:23 Sucralfate 1 Gm/10 Ml Oral Liqd PO 1 gm ACHS YOSSI Administration Nutrition/Malnutrition Assess - Dietary Evaluation Nutrition/Malnutrition Findings: Nutrition Notes Start: 11/04/21 17:16 Freq: Status: Active Protocol: Document 11/20/21 15:54 ISABELL (Rec: 11/20/21 16:31 ISABELL [id number]) Nutrition Notes Initial or Follow up Reassessment Current Diagnosis Decubitus(Pressure Ulcer), Diabetes,Sepsis,Hypertension, Respiratory Failure Other Pertinent Diagnosis Septic shock, Bilateral Pneumonia, Lower Extremity Cellulitis. Current Diet TF-Glucerna 1.2 Tamir @ 42 ml/hr (since D 11/20). Labs/Tests 11/20: K 3.5, Cl 108.9, BUN 37 , Glu 117. Pertinent Medications 11/20: D5w 1000 ml @ 75 ml/hr, others nutritionally unremarkable. Height 5 ft Weight 62.4 kg [place] Body Weight (kg) 45.45 BMI 26.9 Weight change and time frame No body weight change reported . Weight Status Appropriate Subjective/Other Information RD consult for routine F/U on TF resume. Pt continues on mechanical ventilation. MD indication to Resume TF. Percent of energy/protein needs met: Prescribed Glucerna 1.2 Tamir @ 42 ml/hr provides for energy/ protein needs (1,208 Kcal/60 g ) during LOS, 100% Kcal; 81% AA. Burn Absent Trauma Absent GI Symptoms Diarrhea Difficulty In Swallowing,Chewing Food Allergy No Skin Integrity/Comment Lower Extremities Pressure Ulcer. Current % PO Other Minimum of two criteria No #1 Nutrition Diagnosis Inadequate oral intake Comments: Pt continues on mechanical ventilation. MD indication to Resume TF. Diagnosis Progress(for reassessment Continues documentation) Is patient on ventilator? Yes Is Patient Ambulatory and/or Out of Bed No [facility]EE[facility]) 1207.824 Calculation Used for Recommendations [facility] Additional Notes Protein: 1.2-2 g/Kg; 75-125 g/ day. Fluids: 1 ml/Kcal, or as per MD. Nutrition Intervention Nutrition Support: Start Glucerna 1.2 Tamir @ 42 ml /hr. Flush: 70 ml water Q 4 hr, or as per MD. Kcal 1,208 Protein (gm) 60 Carbohydrates (gm) 115 Fat (gm) 60 Fluid (mL) 810 Fiber (gm) 16 % RDI: 100% Kcal; 81% AA. Goal #1 Provide at least 75% of energy /protein needs through Enteral Feeding during LOS. Goal #2 Maintain body weight within +/ -3% of admission body weight during LOS. Follow-Up By: 11/24/21 Additional Comments Continue monitoring TF tolerance and BM.
--- NOTE | 2021-11-22 11:43 | Progress Note ---
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 She was found to be in respiratory distress, initially treated with NRB. Pt was also noted to be septic with radiographic evidence of bilateral PNA Acute Respiratory Failure Septic Shock GBS Bacteremia Bilateral Pneumonia Bilateral Pleural Effusions Right pneumothorax and s/p right chest tube Acute HFrEF DVT- s/p IVC filter Cardiomyopathy (EF reduced to 30-35% on echo this admission) NSVT Tn Elevation (?Type 2 PR in the setting of hypoxia & shock) Anemia GI bleed CAD s/p PCI (2004) CHB s/p PPM ([facility]) Hypothyroidism H/o HTN H/o DM Arthritis Echo reviewed - EF 30-35%, mild diastolic dysfunction, RV mildly dilated, moderate MR, moderate TR, moderate pulmonary HTN w/RVSP 49mmHg, no pericardial effusion, large left pleural effusion. Plan: cont low dose bb Not on ASA d/t allergy. Patient S/p IVC filter Continue statin Subjective Principal diagnosis: Septic shock; AHRF; Anemia; Pneumonia; L. pleural effusion; HFrEF; Pulm HTN Interval history: No changes overnight. RN at bedside. Objective Vital Signs Temp Pulse Pulse Resp BP Pulse Ox 11/22/21 11:15 77 124/46 93 11/22/21 11:01 76 20 124/46 95 11/22/21 10:30 85 12 175/76 98 11/22/21 10:16 87 188/99 11/22/21 10:01 89 23 188/99 90 11/22/21 09:30 75 23 127/59 95 11/22/21 09:00 76 14 124/57 95 11/22/21 08:30 75 14 121/57 94 11/22/21 08:00 98.6 F 76 13 130/58 99 11/22/21 07:47 75 121/55 97 11/22/21 07:30 76 15 121/55 95 11/22/21 07:01 80 16 126/60 89 11/22/21 06:30 79 15 126/60 100 11/22/21 06:00 76 14 105/57 97 11/22/21 05:30 75 15 102/51 98 11/22/21 05:00 76 12 113/54 98 11/22/21 04:30 77 14 104/53 99 11/22/21 04:02 80 115/55 97 11/22/21 04:00 99.0 F 81 81 20 115/55 100 11/22/21 03:30 79 8 L 107/53 100 11/22/21 03:00 78 16 106/48 99 11/22/21 02:30 78 19 100/49 97 11/22/21 02:00 80 18 98/49 98 11/22/21 01:30 79 13 95/48 97 11/22/21 01:00 81 16 91/45 97 11/22/21 00:30 89 12 114/52 97 11/22/21 00:21 83 110/53 96 11/22/21 00:10 84 110/53 11/22/21 00:00 99.5 F 83 89 21 110/53 100 11/21/21 23:30 82 16 107/53 98 11/21/21 23:00 78 9 L 109/49 97 11/21/21 22:30 81 10 L 119/52 96 11/21/21 22:00 81 14 122/51 98 11/21/21 21:30 78 18 109/48 95 11/21/21 21:00 82 12 115/49 95 11/21/21 20:30 84 14 130/60 95 11/21/21 20:00 99.1 F 83 79 24 127/64 100 11/21/21 19:58 79 118/56 95 11/21/21 19:30 80 7 L 118/56 94 11/21/21 19:00 81 16 115/49 95 11/21/21 18:30 81 16 127/58 97 11/21/21 18:15 77 16 147/76 95 11/21/21 18:02 90 147/76 90 11/21/21 18:01 91 H 11 L 147/76 88 11/21/21 17:30 73 25 H 101/40 90 11/21/21 17:00 71 22 106/40 97 11/21/21 16:51 99.1 F 11/21/21 16:30 76 20 130/60 97 11/21/21 16:00 74 10 L 112/49 95 11/21/21 15:53 75 21 100 11/21/21 15:52 75 02/04/22 15:30 75 19 112/48 99 11/21/21 15:00 73 18 112/45 99 11/21/21 14:57 73 23 98/40 98 11/21/21 14:30 72 14 97/37 98 11/21/21 14:00 73 15 107/44 99 11/21/21 13:30 74 13 107/44 95 11/21/21 13:00 74 18 111/45 93 11/21/21 12:30 75 20 108/43 91 11/21/21 12:01 85 17 124/58 98 11/21/21 12:00 86 86 17 100 - Physical Examination General: Other (intubated) HEENT: Positive: Normocephaly Neck: Positive: neck supple, trachea midline Neuro: Positive: Other (intubated) Abdomen: Positive: Soft Skin: Negative: Rash, Wound Musculoskeletal: No Fluid Collection Extremities: Present: lower extr. pulses, edema - Labs and Meds CBC 11/22/21 Range/Units 07:07 WBC 10.1 (4.5-11.0) K/mm3 RBC 3.30 L (3.65-5.03) M/mm3 Hgb 9.0 L (10.1-14.3) gm/dl Hct 28.5 L (30.3-42.9) % Plt Count 204 (140-440) K/mm3 Comprehensive Metabolic Panel 11/22/21 Range/Units 07:07 Sodium 139 (137-145) mmol/L Potassium 4.7 (3.6-5.0) mmol/L Chloride 107.0 (98-107) mmol/L Carbon Dioxide 22 (22-30) mmol/L BUN 32 H (7-17) mg/dL Creatinine 1.0 (0.6-1.2) mg/dL Glucose 106 H (65-100) mg/dL Calcium 7.5 L (8.4-10.2) mg/dL - Imaging and Cardiology EKG: report reviewed, image reviewed Stress echo: report reviewed Echo: report reviewed Cardiac cath: report reviewed - EKG Sinus rhythms and dysrhythmias: sinus rhythm Ventricular dysrhythmias: ventricular premature com - Allied health notes Allied health notes reviewed: nursing
--- NOTE | 2021-11-22 15:44 | Progress Note ---
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 - discussed need for a tracheostomy with her and daughter and they want to talk to the surgeon regarding aura-operative risks - surgery consult placed - continue Protonix 40 mg IV bid - prn Levophed for target MAP > 65 mmHg - continue care as below otherwise; - continue daily SAT and SBT assessment as tolerated - continue to wean supplemental oxygen for target O2 sat's > 90% acutely - VAP bundle addressed - continue lung protective strategies - continue bronchodilators with pulmonary hygiene per RT - wean per pulmonary driven protocols otherwise - avoid nephrotoxins, renally dose all medications - continue accuchecks with glycemic control per SSI (While critically ill target blood glucose of 140-180 mg/dL; avoid hypoglycemia) - sedation prn for target RASS 0 to -1 - antibiotics per ID recommendations - continue to avoid benzodiazepine's, reduce the possibility of delirium - prn analgesia per CPOT score - Maintenance of sleep-wake cycle, avoid delirium - continue enteral nutritional support at goal rate as tolerated - G.I. & VTE prophylaxis - PT/OT/ROM exercises - continue mobility protocols for pressure ulcer prophylaxis - Monitor hemodynamics closely - continue other care per attending / other consultants - discharge planning ongoing concurrently COVID SPECIFIC INTERVENTIONS - COVID-19 PCR negative .... Re-evaluate in am & prn CONDITION: CRITICAL PROGNOSIS: GUARDED CODE STATUS: FULL CODE The high probability of a clinically significant, sudden or life-threatening deterioration of the [respiratory, cardiovascular & neurologic] system(s) required my full and direct attention, intervention and personal management. The aggregate critical care time was [32] minutes without overlap. Time includes spent on; [x] Data Review and interpretation [x] Patient assessment and monitoring of vital signs [x] Documentation [x] Medication orders and management Subjective Date of service: 11/22/21 Principal diagnosis: Septic shock; AHRF; Anemia; Pneumonia; L. pleural effusion; HFrEF; Pulm HTN Interval history: Patient is seen today for: Septic shock; Acute hypoxemic respiratory failure; Anemia; Bilateral pneumonia; Left pleural effusion; HFrEF 30-35%; Pulm HTN RVSP 49 Seen and examined at bedside; 24hour events reviewed; nursing and respiratory care staff consulted; no adverse overnight events reported to me; resting in bed; remains on MVS; unfortunately she continues to fail SBT's even with p-supp at 20 cm H2O; no N/V/F/C Objective Vital Signs - 12hr 11/22/21 11/22/21 11/22/21 04:00 04:02 04:30 Temperature 99.0 F Pulse Rate 81 80 77 Pulse Rate [ 81 From Monitor] Respiratory 20 14 Rate Blood Pressure 115/55 115/55 104/53 O2 Sat by Pulse 100 97 99 Oximetry 11/22/21 11/22/21 11/22/21 05:00 05:30 06:00 Temperature Pulse Rate 76 75 76 Pulse Rate [ From Monitor] Respiratory 12 15 14 Rate Blood Pressure 113/54 102/51 105/57 O2 Sat by Pulse 98 98 97 Oximetry 11/22/21 11/22/21 11/22/21 06:30 07:01 07:30 Temperature Pulse Rate 79 80 76 Pulse Rate [ From Monitor] Respiratory 15 16 15 Rate Blood Pressure 126/60 126/60 121/55 O2 Sat by Pulse 100 89 95 Oximetry 11/22/21 11/22/21 11/22/21 07:47 08:00 08:30 Temperature 98.6 F Pulse Rate 75 76 75 Pulse Rate [ From Monitor] Respiratory 13 14 Rate Blood Pressure 121/55 130/58 121/57 O2 Sat by Pulse 97 99 94 Oximetry 11/22/21 11/22/21 11/22/21 09:00 09:30 10:01 Temperature Pulse Rate 76 75 89 Pulse Rate [ From Monitor] Respiratory 14 23 23 Rate Blood Pressure 124/57 127/59 188/99 O2 Sat by Pulse 95 95 90 Oximetry 11/22/21 11/22/21 11/22/21 10:16 10:30 11:01 Temperature Pulse Rate 87 85 76 Pulse Rate [ From Monitor] Respiratory 12 20 Rate Blood Pressure 188/99 175/76 124/46 O2 Sat by Pulse 98 95 Oximetry 11/22/21 11/22/21 11/22/21 11:15 11:30 12:00 Temperature 97.7 F Pulse Rate 77 71 68 Pulse Rate [ From Monitor] Respiratory 16 15 Rate Blood Pressure 124/46 99/44 86/44 O2 Sat by Pulse 93 94 96 Oximetry 11/22/21 11/22/2111/22/22 12:30 13:00 13:30 Temperature Pulse Rate 67 67 68 Pulse Rate [ From Monitor] Respiratory 18 14 16 Rate Blood Pressure 113/43 111/43 114/45 O2 Sat by Pulse 96 99 98 Oximetry 11/22/21 11/22/21 11/22/21 14:01 14:31 15:00 Temperature Pulse Rate 74 79 81 Pulse Rate [ From Monitor] Respiratory 18 19 14 Rate Blood Pressure 126/47 139/61 138/65 O2 Sat by Pulse 98 97 98 Oximetry 11/22/21 15:30 Temperature Pulse Rate 73 Pulse Rate [ From Monitor] Respiratory 10 L Rate Blood Pressure 125/52 O2 Sat by Pulse 98 Oximetry Constitutional: no acute distress, other (ETT to MVS, frail elderly woman with mildly increased respiratory effort at rest) Eyes: non-icteric ENT: oropharynx moist, oropharyngeal exudate pre (clear frothy), other (ETT 23 cm ELIZABETH) Neck: supple, no lymphadenopathy, no JVD Effort: normal, mildly labored Ascultation: Bilateral: diminished breath sounds, rhonchi (bases) Percussion: Bilateral: not dull Cardiovascular: regular rate and rhythm, other (S1,S2) Gastrointestinal: normoactive bowel sounds, soft, non-tender, non-distended (protuberant) Integumentary: normal Extremities: no cyanosis, pink and warm, pulses normal, edema (upper etremities) Neurologic: non-focal exam (grossly), pupils equal and round, CN II-XII normal, other (sedated) Psychiatric: mood appropriate, affect normal CBC and BMP: 11/22/21 07:07 11/22/21 07:07 ABG, PT/INR, D-dimer: ABG ABG pH 7.449 pH Units (7.350-7.450) 11/21/21 16:00 ABG pCO2 32.1 mm Hg 11/21/21 16:00 ABG pO2 114.2 mm Hg (80.0-90.0) H 11/21/21 16:00 ABG O2 Saturation 98.3 % (95.0-99.0) 11/21/21 16:00 PT/INR, D-dimer PT 18.6 Sec. (12.2-14.9) H 11/03/21 22:32 INR 1.40 (0.87-1.13) H 11/03/21 22:32 D-Dimer 2655.00 ng/mlDDU (0-234) H 11/11/21 04:28 Abnormal lab findings: Abnormal Labs 11/03/21 11/03/21 11/03/21 22:32 22:32 22:32 WBC 29.3 H RBC 2.93 L Hgb 6.1 L Hct 21.9 L MCV 75 L MCH 21 L MCHC 28 L RDW 19.7 H Plt Count Seg Neuts % (Manual) 97.0 H Lymphocytes % (Manual) 3.0 L Seg Neutrophils # Man 28.4 H Lymphocytes # (Manual) 0.9 L Monocytes # (Manual) PT 18.6 H INR 1.40 H D-Dimer ABG pH ABG pO2 ABG HCO3 ABG O2 Saturation ABG Base Excess ABG Hemoglobin Oxyhemoglobin Sodium Potassium Chloride Carbon Dioxide 20 L BUN 33 H Glucose 119 H POC Glucose Lactic Acid Calcium 8.3 L Phosphorus Magnesium AST ALT Alkaline Phosphatase Lactate Dehydrogenase Troponin T 0.035 H C-Reactive Protein NT-Pro-B Natriuret Pep Total Protein Albumin LDL Cholesterol Direct 34 L Vitamin B12 Crossmatch 11/03/21 11/03/21 11/03/21 22:32 22:32 23:57 WBC RBC Hgb Hct MCV MCH MCHC RDW Plt Count Seg Neuts % (Manual) Lymphocytes % (Manual) Seg Neutrophils # Man Lymphocytes # (Manual) Monocytes # (Manual) PT INR D-Dimer ABG pH ABG pO2 ABG HCO3 ABG O2 Saturation ABG Base Excess ABG Hemoglobin Oxyhemoglobin Sodium Potassium Chloride Carbon Dioxide BUN Glucose POC Glucose Lactic Acid 3.70 H* Calcium Phosphorus Magnesium AST ALT Alkaline Phosphatase 139 H Lactate Dehydrogenase Troponin T C-Reactive Protein NT-Pro-B Natriuret Pep 7895 H Total Protein Albumin 3.5 L LDL Cholesterol Direct Vitamin B12 Crossmatch See Detail 11/04/21 11/04/21 11/05/21 00:59 13:58 00:51 WBC 27.9 H RBC 3.28 L Hgb 7.3 L Hct 25.5 L MCV 78 L MCH 22 L MCHC 29 L RDW 19.1 H Plt Count Seg Neuts % (Manual) 96.0 H Lymphocytes % (Manual) 2.0 L Seg Neutrophils # Man 26.8 H Lymphocytes # (Manual) 0.6 L Monocytes # (Manual) PT INR D-Dimer ABG pH ABG pO2 ABG HCO3 ABG O2 Saturation ABG Base Excess ABG Hemoglobin Oxyhemoglobin Sodium Potassium Chloride Carbon Dioxide BUN Glucose POC Glucose Lactic Acid Calcium Phosphorus Magnesium AST ALT Alkaline Phosphatase Lactate Dehydrogenase Troponin T 0.051 H D 0.032 H D C-Reactive Protein NT-Pro-B Natriuret Pep Total Protein Albumin LDL Cholesterol Direct Vitamin B12 Crossmatch 11/05/21 11/05/21 11/05/21 06:11 06:11 06:11 WBC 31.8 H RBC 3.57 L Hgb 8.0 L Hct 27.7 L MCV 78 L MCH 22 L MCHC 29 L RDW 19.2 H Plt Count Seg Neuts % (Manual) 91.0 H Lymphocytes % (Manual) 4.5 L Seg Neutrophils # Man 28.9 H Lymphocytes # (Manual) Monocytes # (Manual) 1.1 H PT INR D-Dimer 1494.53 H ABG pH ABG pO2 ABG HCO3 ABG O2 Saturation ABG Base Excess ABG Hemoglobin Oxyhemoglobin Sodium Potassium Chloride Carbon Dioxide 19 L BUN 42 H Glucose 115 H POC Glucose Lactic Acid Calcium Phosphorus Magnesium AST 43 H ALT Alkaline Phosphatase Lactate Dehydrogenase 187 H Troponin T C-Reactive Protein 22.20 H NT-Pro-B Natriuret Pep Total Protein 6.0 L Albumin 3.2 L LDL Cholesterol Direct Vitamin B12 Crossmatch 11/05/21 11/05/21 11/06/21 06:11 12:15 00:30 WBC RBC Hgb Hct MCV MCH MCHC RDW Plt Count Seg Neuts % (Manual) Lymphocytes % (Manual) Seg Neutrophils # Man Lymphocytes # (Manual) Monocytes # (Manual) PT INR D-Dimer ABG pH ABG pO2 ABG HCO3 ABG O2 Saturation ABG Base Excess ABG Hemoglobin Oxyhemoglobin Sodium Potassium Chloride Carbon Dioxide BUN Glucose POC Glucose 113 H 69 L Lactic Acid Calcium Phosphorus Magnesium AST ALT Alkaline Phosphatase Lactate Dehydrogenase Troponin T 0.033 H C-Reactive Protein NT-Pro-B Natriuret Pep Total Protein Albumin LDL Cholesterol Direct Vitamin B12 Crossmatch 11/06/21 11/06/21 11/06/21 05:50 15:50 15:50 WBC 25.5 H RBC 3.62 L Hgb 8.0 L Hct 27.5 L MCV 76 L MCH 22 L MCHC 29 L RDW 19.6 H Plt Count Seg Neuts % (Manual) 92.0 H Lymphocytes % (Manual) 5.0 L Seg Neutrophils # Man 23.5 H Lymphocytes # (Manual) Monocytes # (Manual) PT INR D-Dimer ABG pH 7.305 L ABG pO2 ABG HCO3 15.8 L ABG O2 Saturation ABG Base Excess -9.6 L ABG Hemoglobin 8.6 L Oxyhemoglobin 94.6 L Sodium Potassium Chloride 113.9 H Carbon Dioxide 17 L BUN 56 H Glucose 114 H POC Glucose Lactic Acid Calcium 7.9 L Phosphorus Magnesium AST 1410 H ALT 934 H Alkaline Phosphatase 142 H Lactate Dehydrogenase Troponin T C-Reactive Protein NT-Pro-B Natriuret Pep Total Protein 5.0 L Albumin 2.6 L LDL Cholesterol Direct Vitamin B12 Crossmatch 11/07/21 11/07/21 11/07/21 03:30 04:50 08:07 WBC RBC Hgb Hct MCV MCH MCHC RDW Plt Count Seg Neuts % (Manual) Lymphocytes % (Manual) Seg Neutrophils # Man Lymphocytes # (Manual) Monocytes # (Manual) PT INR D-Dimer ABG pH ABG pO2 296.9 H ABG HCO3 18.1 L ABG O2 Saturation 99.5 H ABG Base Excess -5.9 L ABG Hemoglobin 7.6 L Oxyhemoglobin Sodium Potassium Chloride Carbon Dioxide BUN Glucose POC Glucose 106 H 108 H Lactic Acid Calcium Phosphorus Magnesium AST ALT Alkaline Phosphatase Lactate Dehydrogenase Troponin T C-Reactive Protein NT-Pro-B Natriuret Pep Total Protein Albumin LDL Cholesterol Direct Vitamin B12 Crossmatch 11/08/21 11/08/21 11/08/21 03:10 18:05 23:43 WBC RBC Hgb Hct MCV MCH MCHC RDW Plt Count Seg Neuts % (Manual) Lymphocytes % (Manual) Seg Neutrophils # Man Lymphocytes # (Manual) Monocytes # (Manual) PT INR D-Dimer ABG pH ABG pO2 127.4 H ABG HCO3 ABG O2 Saturation ABG Base Excess -3.4 L ABG Hemoglobin 7.4 L Oxyhemoglobin Sodium Potassium Chloride Carbon Dioxide BUN Glucose POC Glucose 113 H 141 H Lactic Acid Calcium Phosphorus Magnesium AST ALT Alkaline Phosphatase Lactate Dehydrogenase Troponin T C-Reactive Protein NT-Pro-B Natriuret Pep Total Protein Albumin LDL Cholesterol Direct Vitamin B12 Crossmatch 11/08/21 11/08/21 11/09/21 Unknown Unknown 02:00 WBC 14.5 H RBC 3.35 L Hgb 7.5 L 8.1 L Hct 25.4 L 27.6 L MCV 76 L 76 L MCH 23 L 22 L MCHC RDW 19.9 H 19.9 H Plt Count Seg Neuts % (Manual) Lymphocytes % (Manual) Seg Neutrophils # Man Lymphocytes # (Manual) Monocytes # (Manual) PT INR D-Dimer ABG pH ABG pO2 ABG HCO3 ABG O2 Saturation ABG Base Excess ABG Hemoglobin Oxyhemoglobin Sodium 154 H D Potassium 3.3 L Chloride 120.7 H Carbon Dioxide 20 L BUN 38 H Glucose POC Glucose Lactic Acid Calcium 8.3 L Phosphorus Magnesium AST ALT Alkaline Phosphatase Lactate Dehydrogenase Troponin T C-Reactive Protein NT-Pro-B Natriuret Pep Total Protein Albumin LDL Cholesterol Direct Vitamin B12 Crossmatch 11/09/21 11/09/21 11/09/21 02:00 02:31 05:12 WBC RBC Hgb Hct MCV MCH MCHC RDW Plt Count Seg Neuts % (Manual) Lymphocytes % (Manual) Seg Neutrophils # Man Lymphocytes # (Manual) Monocytes # (Manual) PT INR D-Dimer ABG pH 7.479 H ABG pO2 121.3 H ABG HCO3 ABG O2 Saturation ABG Base Excess ABG Hemoglobin 7.3 L Oxyhemoglobin Sodium Potassium Chloride 112.5 H Carbon Dioxide BUN 33 H Glucose 161 H POC Glucose 135 H Lactic Acid Calcium Phosphorus Magnesium AST 251 H ALT 481 H Alkaline Phosphatase Lactate Dehydrogenase Troponin T C-Reactive Protein NT-Pro-B Natriuret Pep Total Protein 5.0 L Albumin 2.8 L LDL Cholesterol Direct Vitamin B12 Crossmatch 11/09/21 11/09/21 11/09/21 11:33 16:32 23:28 WBC RBC Hgb Hct MCV MCH MCHC RDW Plt Count Seg Neuts % (Manual) Lymphocytes % (Manual) Seg Neutrophils # Man Lymphocytes # (Manual) Monocytes # (Manual) PT INR D-Dimer ABG pH ABG pO2 ABG HCO3 ABG O2 Saturation ABG Base Excess ABG Hemoglobin Oxyhemoglobin Sodium Potassium Chloride Carbon Dioxide BUN Glucose POC Glucose 132 H 133 H 143 H Lactic Acid Calcium Phosphorus Magnesium AST ALT Alkaline Phosphatase Lactate Dehydrogenase Troponin T C-Reactive Protein NT-Pro-B Natriuret Pep Total Protein Albumin LDL Cholesterol Direct Vitamin B12 Crossmatch 11/10/21 11/10/21 11/10/21 04:00 04:00 05:35 WBC 16.0 H RBC 3.61 L Hgb 8.0 L Hct 27.1 L MCV 75 L MCH 22 L MCHC RDW 20.4 H Plt Count Seg Neuts % (Manual) Lymphocytes % (Manual) Seg Neutrophils # Man Lymphocytes # (Manual) Monocytes # (Manual) PT INR D-Dimer ABG pH ABG pO2 ABG HCO3 ABG O2 Saturation ABG Base Excess ABG Hemoglobin Oxyhemoglobin Sodium 149 H Potassium Chloride 114.1 H Carbon Dioxide BUN 31 H Glucose 148 H POC Glucose 132 H Lactic Acid Calcium 8.2 L Phosphorus Magnesium AST ALT Alkaline Phosphatase Lactate Dehydrogenase Troponin T C-Reactive Protein NT-Pro-B Natriuret Pep Total Protein Albumin LDL Cholesterol Direct Vitamin B12 Crossmatch 11/10/21 11/10/21 11/10/21 11:31 14:08 15:35 WBC RBC Hgb Hct MCV MCH MCHC RDW Plt Count Seg Neuts % (Manual) Lymphocytes % (Manual) Seg Neutrophils # Man Lymphocytes # (Manual) Monocytes # (Manual) PT INR D-Dimer ABG pH ABG pO2 126.6 H ABG HCO3 ABG O2 Saturation ABG Base Excess ABG Hemoglobin 7.4 L Oxyhemoglobin Sodium Potassium Chloride Carbon Dioxide BUN Glucose POC Glucose 147 H Lactic Acid Calcium Phosphorus Magnesium AST ALT Alkaline Phosphatase Lactate Dehydrogenase Troponin T C-Reactive Protein NT-Pro-B Natriuret Pep Total Protein Albumin LDL Cholesterol Direct Vitamin B12 1823 H Crossmatch 11/10/21 11/11/21 11/11/21 17:53 00:55 04:28 WBC RBC Hgb Hct MCV MCH MCHC RDW Plt Count Seg Neuts % (Manual) Lymphocytes % (Manual) Seg Neutrophils # Man Lymphocytes # (Manual) Monocytes # (Manual) PT INR D-Dimer ABG pH ABG pO2 ABG HCO3 ABG O2 Saturation ABG Base Excess ABG Hemoglobin Oxyhemoglobin Sodium 149 H Potassium Chloride 112.2 H Carbon Dioxide BUN 34 H Glucose 148 H POC Glucose 140 H 145 H Lactic Acid Calcium 7.9 L Phosphorus Magnesium AST 53 H ALT 203 H Alkaline Phosphatase Lactate Dehydrogenase Troponin T C-Reactive Protein NT-Pro-B Natriuret Pep Total Protein 4.9 L Albumin 2.6 L LDL Cholesterol Direct Vitamin B12 Crossmatch 11/11/21 11/11/2111/11/22 04:28 04:28 05:28 WBC 20.9 H RBC 3.47 L Hgb 7.5 L Hct 26.0 L MCV 75 L MCH 22 L MCHC 29 L RDW 21.6 H Plt Count 132 L Seg Neuts % (Manual) Lymphocytes % (Manual) Seg Neutrophils # Man Lymphocytes # (Manual) Monocytes # (Manual) PT INR D-Dimer 2655.00 H ABG pH ABG pO2 ABG HCO3 ABG O2 Saturation ABG Base Excess ABG Hemoglobin Oxyhemoglobin Sodium Potassium Chloride Carbon Dioxide BUN Glucose POC Glucose 154 H Lactic Acid Calcium Phosphorus Magnesium AST ALT Alkaline Phosphatase Lactate Dehydrogenase Troponin T C-Reactive Protein NT-Pro-B Natriuret Pep Total Protein Albumin LDL Cholesterol Direct Vitamin B12 Crossmatch 11/11/21 11/11/21 11/12/21 12:38 18:13 00:14 WBC RBC Hgb Hct MCV MCH MCHC RDW Plt Count Seg Neuts % (Manual) Lymphocytes % (Manual) Seg Neutrophils # Man Lymphocytes # (Manual) Monocytes # (Manual) PT INR D-Dimer ABG pH ABG pO2 ABG HCO3 ABG O2 Saturation ABG Base Excess ABG Hemoglobin Oxyhemoglobin Sodium Potassium Chloride Carbon Dioxide BUN Glucose POC Glucose 137 H 108 H 137 H Lactic Acid Calcium Phosphorus Magnesium AST ALT Alkaline Phosphatase Lactate Dehydrogenase Troponin T C-Reactive Protein NT-Pro-B Natriuret Pep Total Protein Albumin LDL Cholesterol Direct Vitamin B12 Crossmatch 11/12/21 11/12/21 11/12/21 05:40 06:24 11:12 WBC RBC Hgb Hct MCV MCH MCHC RDW Plt Count Seg Neuts % (Manual) Lymphocytes % (Manual) Seg Neutrophils # Man Lymphocytes # (Manual) Monocytes # (Manual) PT INR D-Dimer ABG pH 7.586 H ABG pO2 150.6 H ABG HCO3 27.2 H ABG O2 Saturation 99.1 H ABG Base Excess 5.2 H ABG Hemoglobin 7.5 L Oxyhemoglobin Sodium Potassium Chloride Carbon Dioxide BUN Glucose POC Glucose 132 H 140 H Lactic Acid Calcium Phosphorus Magnesium AST ALT Alkaline Phosphatase Lactate Dehydrogenase Troponin T C-Reactive Protein NT-Pro-B Natriuret Pep Total Protein Albumin LDL Cholesterol Direct Vitamin B12 Crossmatch 11/12/21 11/12/21 11/12/21 14:50 14:50 17:13 WBC 19.8 H RBC 3.27 L Hgb 7.1 L Hct 24.5 L MCV 75 L MCH 22 L MCHC 29 L RDW 22.3 H Plt Count Seg Neuts % (Manual) Lymphocytes % (Manual) Seg Neutrophils # Man Lymphocytes # (Manual) Monocytes # (Manual) PT INR D-Dimer ABG pH ABG pO2 ABG HCO3 ABG O2 Saturation ABG Base Excess ABG Hemoglobin Oxyhemoglobin Sodium 150 H Potassium 3.3 L Chloride 112.0 H Carbon Dioxide BUN 40 H Glucose 151 H POC Glucose 121 H Lactic Acid Calcium 7.4 L Phosphorus 1.70 L Magnesium 1.40 L AST ALT Alkaline Phosphatase Lactate Dehydrogenase Troponin T C-Reactive Protein NT-Pro-B Natriuret Pep Total Protein Albumin LDL Cholesterol Direct Vitamin B12 Crossmatch 11/12/21 11/13/21 11/13/21 23:19 05:34 06:30 WBC RBC Hgb Hct MCV MCH MCHC RDW Plt Count Seg Neuts % (Manual) Lymphocytes % (Manual) Seg Neutrophils # Man Lymphocytes # (Manual) Monocytes # (Manual) PT INR D-Dimer ABG pH ABG pO2 ABG HCO3 ABG O2 Saturation ABG Base Excess ABG Hemoglobin Oxyhemoglobin Sodium 149 H Potassium Chloride 60.0 L Carbon Dioxide BUN 40 H Glucose 146 H POC Glucose 113 H 132 H Lactic Acid Calcium 7.3 L Phosphorus Magnesium 2.40 H AST ALT 72 H Alkaline Phosphatase Lactate Dehydrogenase Troponin T C-Reactive Protein NT-Pro-B Natriuret Pep Total Protein 5.2 L Albumin 2.2 L LDL Cholesterol Direct Vitamin B12 Crossmatch 11/13/21 11/13/21 11/13/21 06:30 08:30 11:19 WBC 21.2 H RBC 3.12 L Hgb 6.8 L Hct 23.2 L MCV 74 L MCH 22 L MCHC 29 L RDW 22.2 H Plt Count 135 L Seg Neuts % (Manual) Lymphocytes % (Manual) Seg Neutrophils # Man Lymphocytes # (Manual) Monocytes # (Manual) PT INR D-Dimer ABG pH ABG pO2 ABG HCO3 ABG O2 Saturation ABG Base Excess ABG Hemoglobin Oxyhemoglobin Sodium Potassium Chloride Carbon Dioxide BUN Glucose POC Glucose 136 H Lactic Acid Calcium Phosphorus Magnesium AST ALT Alkaline Phosphatase Lactate Dehydrogenase Troponin T C-Reactive Protein NT-Pro-B Natriuret Pep Total Protein Albumin LDL Cholesterol Direct Vitamin B12 Crossmatch See Detail 11/13/21 11/14/21 11/14/21 18:21 00:01 04:46 WBC 20.0 H RBC 3.41 L Hgb 7.9 L Hct 26.8 L MCV MCH 23 L MCHC 29 L RDW 24.0 H Plt Count Seg Neuts % (Manual) Lymphocytes % (Manual) Seg Neutrophils # Man Lymphocytes # (Manual) Monocytes # (Manual) PT INR D-Dimer ABG pH ABG pO2 ABG HCO3 ABG O2 Saturation ABG Base Excess ABG Hemoglobin Oxyhemoglobin Sodium Potassium Chloride Carbon Dioxide BUN Glucose POC Glucose 149 H 141 H Lactic Acid Calcium Phosphorus Magnesium AST ALT Alkaline Phosphatase Lactate Dehydrogenase Troponin T C-Reactive Protein NT-Pro-B Natriuret Pep Total Protein Albumin LDL Cholesterol Direct Vitamin B12 Crossmatch 11/14/21 11/14/21 11/14/21 04:46 05:10 11:10 WBC RBC Hgb Hct MCV MCH MCHC RDW Plt Count Seg Neuts % (Manual) Lymphocytes % (Manual) Seg Neutrophils # Man Lymphocytes # (Manual) Monocytes # (Manual) PT INR D-Dimer ABG pH ABG pO2 ABG HCO3 ABG O2 Saturation ABG Base Excess ABG Hemoglobin Oxyhemoglobin Sodium 148 H Potassium Chloride 113.1 H Carbon Dioxide BUN 43 H Glucose 140 H POC Glucose 132 H 133 H Lactic Acid Calcium 7.5 L Phosphorus Magnesium AST ALT Alkaline Phosphatase Lactate Dehydrogenase Troponin T C-Reactive Protein NT-Pro-B Natriuret Pep Total Protein Albumin LDL Cholesterol Direct Vitamin B12 Crossmatch 11/14/21 11/14/21 11/14/21 16:14 17:48 23:23 WBC RBC Hgb Hct MCV MCH MCHC RDW Plt Count Seg Neuts % (Manual) Lymphocytes % (Manual) Seg Neutrophils # Man Lymphocytes # (Manual) Monocytes # (Manual) PT INR D-Dimer ABG pH ABG pO2 ABG HCO3 28.0 H ABG O2 Saturation ABG Base Excess 3.1 H ABG Hemoglobin 5.8 L Oxyhemoglobin 94.8 L Sodium Potassium Chloride Carbon Dioxide BUN Glucose POC Glucose 130 H 136 H Lactic Acid Calcium Phosphorus Magnesium AST ALT Alkaline Phosphatase Lactate Dehydrogenase Troponin T C-Reactive Protein NT-Pro-B Natriuret Pep Total Protein Albumin LDL Cholesterol Direct Vitamin B12 Crossmatch 11/15/21 11/15/21 11/15/21 05:20 05:50 05:50 WBC 19.9 H RBC 3.50 L Hgb 8.2 L Hct 27.9 L MCV MCH 23 L MCHC 29 L RDW 24.9 H Plt Count Seg Neuts % (Manual) Lymphocytes % (Manual) Seg Neutrophils # Man Lymphocytes # (Manual) Monocytes # (Manual) PT INR D-Dimer ABG pH ABG pO2 ABG HCO3 ABG O2 Saturation ABG Base Excess ABG Hemoglobin Oxyhemoglobin Sodium 149 H Potassium Chloride 112.0 H Carbon Dioxide BUN 48 H Glucose 152 H POC Glucose 137 H Lactic Acid Calcium 7.9 L Phosphorus Magnesium AST ALT Alkaline Phosphatase Lactate Dehydrogenase Troponin T C-Reactive Protein NT-Pro-B Natriuret Pep Total Protein Albumin LDL Cholesterol Direct Vitamin B12 Crossmatch 11/15/21 11/15/21 11/15/21 12:12 17:07 23:24 WBC RBC Hgb Hct MCV MCH MCHC RDW Plt Count Seg Neuts % (Manual) Lymphocytes % (Manual) Seg Neutrophils # Man Lymphocytes # (Manual) Monocytes # (Manual) PT INR D-Dimer ABG pH ABG pO2 ABG HCO3 ABG O2 Saturation ABG Base Excess ABG Hemoglobin Oxyhemoglobin Sodium Potassium Chloride Carbon Dioxide BUN Glucose POC Glucose 114 H 135 H 123 H Lactic Acid Calcium Phosphorus Magnesium AST ALT Alkaline Phosphatase Lactate Dehydrogenase Troponin T C-Reactive Protein NT-Pro-B Natriuret Pep Total Protein Albumin LDL Cholesterol Direct Vitamin B12 Crossmatch 11/16/21 11/16/21 11/16/21 05:21 10:00 10:00 WBC 21.7 H RBC 2.57 L Hgb 6.0 L Hct 20.2 L D MCV MCH 24 L MCHC RDW 26.3 H Plt Count Seg Neuts % (Manual) Lymphocytes % (Manual) Seg Neutrophils # Man Lymphocytes # (Manual) Monocytes # (Manual) PT INR D-Dimer ABG pH ABG pO2 ABG HCO3 ABG O2 Saturation ABG Base Excess ABG Hemoglobin Oxyhemoglobin Sodium 153 H Potassium Chloride 114.9 H Carbon Dioxide BUN 74 H Glucose 155 H POC Glucose 127 H Lactic Acid Calcium 8.1 L Phosphorus Magnesium AST ALT Alkaline Phosphatase Lactate Dehydrogenase Troponin T C-Reactive Protein NT-Pro-B Natriuret Pep Total Protein Albumin LDL Cholesterol Direct Vitamin B12 Crossmatch 11/16/21 11/16/21 11/16/21 11:34 14:00 15:25 WBC 17.2 H RBC 2.08 L Hgb 4.7 L* Hct 16.2 L* MCV 78 L MCH 23 L MCHC 29 L RDW 26.0 H Plt Count Seg Neuts % (Manual) 87.0 H Lymphocytes % (Manual) 8.0 L Seg Neutrophils # Man 15.0 H Lymphocytes # (Manual) Monocytes # (Manual) 0.9 H PT INR D-Dimer ABG pH ABG pO2 ABG HCO3 ABG O2 Saturation ABG Base Excess ABG Hemoglobin Oxyhemoglobin Sodium Potassium Chloride Carbon Dioxide BUN Glucose POC Glucose 131 H Lactic Acid Calcium Phosphorus Magnesium AST ALT Alkaline Phosphatase Lactate Dehydrogenase Troponin T C-Reactive Protein NT-Pro-B Natriuret Pep Total Protein Albumin LDL Cholesterol Direct Vitamin B12 Crossmatch See Detail 11/16/21 11/16/21 11/16/21 15:25 17:21 22:43 WBC RBC Hgb 8.6 L D Hct 27.7 L D MCV MCH MCHC RDW Plt Count Seg Neuts % (Manual) Lymphocytes % (Manual) Seg Neutrophils # Man Lymphocytes # (Manual) Monocytes # (Manual) PT INR D-Dimer ABG pH ABG pO2 ABG HCO3 ABG O2 Saturation ABG Base Excess ABG Hemoglobin Oxyhemoglobin Sodium 148 H Potassium Chloride 113.2 H Carbon Dioxide BUN 84 H Glucose 164 H POC Glucose 124 H Lactic Acid Calcium 7.6 L Phosphorus Magnesium AST ALT Alkaline Phosphatase Lactate Dehydrogenase Troponin T C-Reactive Protein NT-Pro-B Natriuret Pep Total Protein Albumin LDL Cholesterol Direct Vitamin B12 Crossmatch 11/16/21 11/17/21 11/17/21 23:07 05:33 05:56 WBC 25.1 H RBC 3.47 L Hgb 8.7 L Hct 28.5 L MCV MCH 25 L MCHC RDW 22.3 H Plt Count Seg Neuts % (Manual) Lymphocytes % (Manual) Seg Neutrophils # Man Lymphocytes # (Manual) Monocytes # (Manual) PT INR D-Dimer ABG pH ABG pO2 ABG HCO3 ABG O2 Saturation ABG Base Excess ABG Hemoglobin Oxyhemoglobin Sodium Potassium Chloride Carbon Dioxide BUN Glucose POC Glucose 128 H 133 H Lactic Acid Calcium Phosphorus Magnesium AST ALT Alkaline Phosphatase Lactate Dehydrogenase Troponin T C-Reactive Protein NT-Pro-B Natriuret Pep Total Protein Albumin LDL Cholesterol Direct Vitamin B12 Crossmatch 11/17/21 11/17/21 11/17/21 05:56 11:00 11:55 WBC RBC Hgb 8.3 L Hct 26.9 L MCV MCH MCHC RDW Plt Count Seg Neuts % (Manual) Lymphocytes % (Manual) Seg Neutrophils # Man Lymphocytes # (Manual) Monocytes # (Manual) PT INR D-Dimer ABG pH ABG pO2 ABG HCO3 ABG O2 Saturation ABG Base Excess ABG Hemoglobin Oxyhemoglobin Sodium 151 H Potassium Chloride 113.6 H Carbon Dioxide BUN 85 H Glucose 132 H POC Glucose 121 H Lactic Acid Calcium 7.8 L Phosphorus Magnesium AST ALT Alkaline Phosphatase Lactate Dehydrogenase Troponin T C-Reactive Protein NT-Pro-B Natriuret Pep Total Protein 5.1 L Albumin 2.2 L LDL Cholesterol Direct Vitamin B12 Crossmatch 11/17/21 11/17/21 11/18/21 18:04 18:55 00:26 WBC RBC Hgb 7.5 L 7.1 L Hct 24.8 L 23.6 L MCV MCH MCHC RDW Plt Count Seg Neuts % (Manual) Lymphocytes % (Manual) Seg Neutrophils # Man Lymphocytes # (Manual) Monocytes # (Manual) PT INR D-Dimer ABG pH ABG pO2 ABG HCO3 ABG O2 Saturation ABG Base Excess ABG Hemoglobin Oxyhemoglobin Sodium Potassium Chloride Carbon Dioxide BUN Glucose POC Glucose 144 H Lactic Acid Calcium Phosphorus Magnesium AST ALT Alkaline Phosphatase Lactate Dehydrogenase Troponin T C-Reactive Protein NT-Pro-B Natriuret Pep Total Protein Albumin LDL Cholesterol Direct Vitamin B12 Crossmatch 11/18/21 11/18/21 11/18/21 00:43 05:10 05:10 WBC 12.5 H RBC 2.39 L Hgb 6.1 L Hct 20.2 L MCV MCH 25 L MCHC RDW 23.2 H Plt Count Seg Neuts % (Manual) Lymphocytes % (Manual) Seg Neutrophils # Man Lymphocytes # (Manual) Monocytes # (Manual) PT INR D-Dimer ABG pH ABG pO2 ABG HCO3 ABG O2 Saturation ABG Base Excess ABG Hemoglobin Oxyhemoglobin Sodium 131 L D Potassium 2.9 L* D Chloride 97.8 L Carbon Dioxide BUN 58 H Glucose 665 H* POC Glucose 139 H Lactic Acid Calcium 7.0 L Phosphorus 2.20 L D Magnesium 1.50 L AST ALT Alkaline Phosphatase Lactate Dehydrogenase Troponin T C-Reactive Protein NT-Pro-B Natriuret Pep Total Protein Albumin LDL Cholesterol Direct Vitamin B12 Crossmatch 11/18/21 11/18/21 11/18/21 05:23 07:10 10:45 WBC RBC Hgb Hct MCV MCH MCHC RDW Plt Count Seg Neuts % (Manual) Lymphocytes % (Manual) Seg Neutrophils # Man Lymphocytes # (Manual) Monocytes # (Manual) PT INR D-Dimer ABG pH ABG pO2 ABG HCO3 ABG O2 Saturation ABG Base Excess ABG Hemoglobin Oxyhemoglobin Sodium 148 H D Potassium 3.1 L Chloride 111.9 H Carbon Dioxide BUN 63 H Glucose 141 H POC Glucose 124 H Lactic Acid Calcium 8.1 L D Phosphorus Magnesium AST ALT Alkaline Phosphatase Lactate Dehydrogenase Troponin T C-Reactive Protein NT-Pro-B Natriuret Pep Total Protein Albumin LDL Cholesterol Direct Vitamin B12 Crossmatch See Detail 11/18/21 11/19/21 11/19/21 11:57 00:19 04:55 WBC RBC 3.35 L Hgb 9.0 L 8.9 L Hct 28.3 L D 28.1 L MCV MCH 27 L MCHC RDW 20.3 H Plt Count Seg Neuts % (Manual) Lymphocytes % (Manual) Seg Neutrophils # Man Lymphocytes # (Manual) Monocytes # (Manual) PT INR D-Dimer ABG pH ABG pO2 ABG HCO3 ABG O2 Saturation ABG Base Excess ABG Hemoglobin Oxyhemoglobin Sodium Potassium Chloride Carbon Dioxide BUN Glucose POC Glucose 119 H Lactic Acid Calcium Phosphorus Magnesium AST ALT Alkaline Phosphatase Lactate Dehydrogenase Troponin T C-Reactive Protein NT-Pro-B Natriuret Pep Total Protein Albumin LDL Cholesterol Direct Vitamin B12 Crossmatch 11/19/21 11/19/21 11/20/21 04:55 05:42 00:55 WBC RBC Hgb 9.0 L Hct 28.6 L MCV MCH MCHC RDW Plt Count Seg Neuts % (Manual) Lymphocytes % (Manual) Seg Neutrophils # Man Lymphocytes # (Manual) Monocytes # (Manual) PT INR D-Dimer ABG pH ABG pO2 ABG HCO3 ABG O2 Saturation ABG Base Excess ABG Hemoglobin Oxyhemoglobin Sodium Potassium 3.5 L Chloride 108.6 H Carbon Dioxide BUN 47 H Glucose 207 H POC Glucose 63 L Lactic Acid Calcium 7.1 L Phosphorus Magnesium AST ALT Alkaline Phosphatase Lactate Dehydrogenase Troponin T C-Reactive Protein NT-Pro-B Natriuret Pep Total Protein Albumin LDL Cholesterol Direct Vitamin B12 Crossmatch 02/01/0611/20/21 11/20/21 05:40 05:40 Unknown WBC RBC 3.40 L Hgb 9.1 L Hct 28.8 L MCV MCH 27 L MCHC RDW 20.7 H Plt Count Seg Neuts % (Manual) Lymphocytes % (Manual) Seg Neutrophils # Man Lymphocytes # (Manual) Monocytes # (Manual) PT INR D-Dimer ABG pH ABG pO2 ABG HCO3 ABG O2 Saturation ABG Base Excess -2.7 L ABG Hemoglobin 9.5 L Oxyhemoglobin 94.3 L Sodium Potassium 3.5 L Chloride 108.9 H Carbon Dioxide BUN 37 H Glucose 117 H POC Glucose Lactic Acid Calcium 7.5 L Phosphorus Magnesium AST ALT Alkaline Phosphatase Lactate Dehydrogenase Troponin T C-Reactive Protein NT-Pro-B Natriuret Pep Total Protein Albumin LDL Cholesterol Direct Vitamin B12 Crossmatch 11/21/21 11/21/21 11/21/21 04:30 04:30 16:00 WBC RBC 3.25 L Hgb 8.6 L Hct 28.1 L MCV MCH 26 L MCHC RDW 20.7 H Plt Count Seg Neuts % (Manual) Lymphocytes % (Manual) Seg Neutrophils # Man Lymphocytes # (Manual) Monocytes # (Manual) PT INR D-Dimer ABG pH ABG pO2 114.2 H ABG HCO3 ABG O2 Saturation ABG Base Excess ABG Hemoglobin 9.1 L Oxyhemoglobin Sodium 134 L Potassium Chloride Carbon Dioxide 20 L BUN 34 H Glucose POC Glucose Lactic Acid Calcium 7.1 L Phosphorus Magnesium AST ALT Alkaline Phosphatase Lactate Dehydrogenase Troponin T C-Reactive Protein NT-Pro-B Natriuret Pep Total Protein Albumin LDL Cholesterol Direct Vitamin B12 Crossmatch 11/22/21 11/22/21 07:07 07:07 WBC RBC 3.30 L Hgb 9.0 L Hct 28.5 L MCV MCH 27 L MCHC RDW 21.0 H Plt Count Seg Neuts % (Manual) Lymphocytes % (Manual) Seg Neutrophils # Man Lymphocytes # (Manual) Monocytes # (Manual) PT INR D-Dimer ABG pH ABG pO2 ABG HCO3 ABG O2 Saturation ABG Base Excess ABG Hemoglobin Oxyhemoglobin Sodium Potassium Chloride Carbon Dioxide BUN 32 H Glucose 106 H POC Glucose Lactic Acid Calcium 7.5 L Phosphorus Magnesium AST ALT Alkaline Phosphatase Lactate Dehydrogenase Troponin T C-Reactive Protein NT-Pro-B Natriuret Pep Total Protein Albumin LDL Cholesterol Direct Vitamin B12 Crossmatch Chest x-ray: pending Allied health notes reviewed: nursing
[2021-11-23] MEDS: INSULIN LISPRO 100 UNIT/ML SUB-Q SCH ×4 (00:15→18:40)
[2021-11-23 05:18] LABS: Hemoglobin 8.8 gm/dl (10.1-14.3); Mean Corpuscular HGB Conc 32 % (30-34); Mean Corpuscular Volume 87 fl (79-97); Platelet Count 227 K/mm3 (140-440); Red Blood Count 3.23 M/mm3 (3.65-5.03)
[2021-11-23 05:22] LABS: Red Cell Distribution Width 21.3 % (13.2-15.2)
[2021-11-23 05:39] LABS: Calcium 7.7 mg/dL (8.4-10.2)
[2021-11-23] MEDS: LEVOTHYROXINE 125 MCG TAB PO SCH (05:49)
[2021-11-23] MEDS: SUCRALFATE 1 GM/10 ML ORAL LIQD PO SCH ×4 (08:25→21:09)
[2021-11-23] MEDS: HYDROcodone/ACETAMINOPHEN 10-325MG TAB FEEDTUBE SCH ×3 (08:25→21:09)
[2021-11-23] MEDS: POLYETHYLENE GLYCOL 3350 17 GM POWDER PO SCH (09:27)
[2021-11-23] MEDS: PANTOPRAZOLE 40 MG INJ IV SCH ×2 (09:28→21:09)
[2021-11-23] MEDS: SENNOSIDES ORAL LIQD 8.8 MG/5 ML ORAL LIQD PO SCH ×2 (09:28→21:08)
[2021-11-23] MEDS: DOCUSATE SODIUM 100 MG/10 ML ORAL LIQD PO SCH ×2 (09:28→21:08)
[2021-11-23] MEDS: fentaNYL 25 MCG/HR PATCH 72HR TD SCH (09:29)
[2021-11-23] MEDS: QUEtiapine 25 MG TAB PO SCH ×2 (09:29→21:08)
[2021-11-23] MEDS: METOPROLOL TARTRATE 25 MG TAB PO SCH ×2 (09:30→21:14)
[2021-11-23] MEDS: busPIRone 5 MG TAB PO SCH ×2 (10:12→21:08)
--- NOTE | 2021-11-23 10:33 | Progress Note ---
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 She was found to be in respiratory distress, initially treated with NRB. Pt was also noted to be septic with radiographic evidence of bilateral PNA Acute Respiratory Failure Septic Shock GBS Bacteremia Bilateral Pneumonia Bilateral Pleural Effusions Right pneumothorax and s/p right chest tube Acute HFrEF DVT- s/p IVC filter Cardiomyopathy (EF reduced to 30-35% on echo this admission) NSVT Tn Elevation (?Type 2 CO in the setting of hypoxia & shock) Anemia GI bleed CAD s/p PCI (2004) CHB s/p PPM ([facility]) Hypothyroidism H/o HTN H/o DM Arthritis Echo reviewed - EF 30-35%, mild diastolic dysfunction, RV mildly dilated, moderate MR, moderate TR, moderate pulmonary HTN w/RVSP 49mmHg, no pericardial effusion, large left pleural effusion. Plan: no changes from cardiac standpoint Subjective Principal diagnosis: Septic shock; AHRF; Anemia; Pneumonia; L. pleural effusion; HFrEF; Pulm HTN Interval history: No changes overnight. RN at bedside. Objective Vital Signs Temp Pulse Pulse Resp BP Pulse Ox 11/23/21 10:00 88 15 129/50 93 11/23/21 09:30 86 13 127/49 92 11/23/21 09:08 87 131/55 100 11/23/21 09:00 86 9 L 131/55 100 11/23/21 08:39 85 12 100 11/23/21 08:30 85 12 127/52 100 11/23/21 08:00 85 12 131/52 99 11/23/21 07:36 98.3 F 11/23/21 07:30 85 15 133/55 99 11/23/21 07:00 85 14 129/54 100 11/23/21 06:30 84 13 127/52 99 11/23/21 06:00 85 12 130/53 99 11/23/21 05:30 89 18 138/51 97 11/23/21 05:00 97 H 20 152/62 96 11/23/21 04:30 80 15 134/57 95 11/23/21 04:00 98.6 F 80 17 136/53 95 11/23/21 03:58 80 95 02/06/22 03:30 80 21 131/52 93 11/23/21 03:00 80 16 134/50 95 11/23/21 02:30 88 15 152/60 99 11/23/21 02:00 76 15 121/51 98 11/23/21 01:30 74 19 129/81 96 11/23/21 01:00 75 14 123/48 98 11/23/21 00:30 73 18 119/40 97 11/23/21 00:02 74 11/23/21 00:00 97.6 F 81 14 131/52 95 11/22/21 23:30 71 21 107/35 95 11/22/21 23:00 71 16 105/37 93 11/22/21 22:30 70 15 129/41 91 11/22/21 22:00 81 14 129/41 94 11/22/21 21:30 77 10 L 136/55 100 11/22/21 21:26 78 136/55 11/22/21 21:15 79 13 114/42 99 11/22/21 21:07 75 114/42 99 11/22/21 21:00 75 15 113/44 99 11/22/21 20:45 77 14 113/44 99 11/22/21 20:30 75 13 122/57 98 11/22/21 20:24 75 11/22/21 20:15 74 14 122/57 100 11/22/21 20:00 98.2 F 77 11 L 111/43 100 11/22/21 19:46 73 13 99 11/22/21 19:45 74 16 111/43 99 11/22/21 19:30 74 13 111/43 100 11/22/21 19:15 77 14 112/42 99 11/22/21 19:00 73 13 112/42 99 11/22/21 18:45 75 14 110/44 98 11/22/21 18:30 73 15 110/44 98 11/22/21 18:15 73 14 131/52 98 11/22/21 18:00 80 20 131/52 99 11/22/21 17:30 76 13 124/56 99 11/22/21 17:00 69 11 L 110/43 98 11/22/21 16:30 68 13 110/41 97 11/22/21 16:00 97.6 F 67 13 115/44 99 11/22/21 15:30 73 10 L 125/52 98 11/22/21 15:26 79 138/65 100 11/22/21 15:00 81 14 138/65 98 11/22/21 14:31 79 19 139/61 97 11/22/21 14:01 74 18 126/47 98 11/22/21 13:30 68 16 114/45 98 11/22/21 13:00 67 14 111/43 99 11/22/21 12:30 67 18 113/43 96 11/22/21 12:00 97.7 F 68 15 86/44 96 11/22/21 11:30 71 16 99/44 94 11/22/21 11:15 77 124/46 93 11/22/21 11:01 76 20 124/46 95 - Physical Examination General: Other (intubated) HEENT: Positive: Normocephaly Neck: Positive: neck supple, trachea midline Neuro: Positive: Other (intubated) Abdomen: Positive: Soft Skin: Negative: Rash, Wound Musculoskeletal: No Fluid Collection Extremities: Present: lower extr. pulses, edema - Labs and Meds CBC 11/23/21 Range/Units 04:38 WBC 9.3 (4.5-11.0) K/mm3 RBC 3.23 L (3.65-5.03) M/mm3 Hgb 8.8 L (10.1-14.3) gm/dl Hct 28.0 L (30.3-42.9) % Plt Count 227 (140-440) K/mm3 Comprehensive Metabolic Panel 11/23/21 Range/Units 04:38 Sodium 136 L (137-145) mmol/L Potassium 4.4 (3.6-5.0) mmol/L Chloride 106.5 (98-107) mmol/L Carbon Dioxide 20 L (22-30) mmol/L BUN 32 H (7-17) mg/dL Creatinine 0.9 (0.6-1.2) mg/dL Glucose 109 H (65-100) mg/dL Calcium 7.7 L (8.4-10.2) mg/dL - Imaging and Cardiology EKG: report reviewed, image reviewed Stress echo: report reviewed Echo: report reviewed Cardiac cath: report reviewed - EKG Sinus rhythms and dysrhythmias: sinus rhythm Ventricular dysrhythmias: ventricular premature com - Allied health notes Allied health notes reviewed: nursing
--- NOTE | 2021-11-23 11:40 | Consultation ---
History of Present Illness Consult date: 11/23/21 Chief complaint: vent dependence - History of present illness History of present illness: 81-year-old female with history of diabetes, hypertension who presented to the emergency room on 11/03/2021 for shortness of breath, fever. The patient was diagnosed with pneumonia, septic shock. During hospitalization patient's mental status deteriorated and she was intubated. She was also treated for GI bleed secondary to a duodenal ulcer. The patient has not been able to be weaned from the ventilator. During PSV trials the patient becomes tachypneic and desaturates. Trach and PEG requested by division service manager. Past History Past Medical History: arthritis, CAD, diabetes, hypertension, hypothyroidism, other (CHB) Past Surgical History: PTCA, Other (PPM). denies: valve replacement, CABG Social history: denies: smoking, alcohol abuse Family history: CAD, cancer, hypertension Medications and Allergies Allergies Allergy/AdvReac Type Severity Reaction Status Date / Time codeine Allergy Unknown Verified 11/04/21 02:20 meperidine HCl [From Demerol] Allergy Unknown Verified 11/04/21 02:21 morphine Allergy Unknown Verified 11/04/21 02:21 Penicillins Allergy Swelling Verified 11/04/21 02:21 Home Medications Medication Instructions Recorded Confirmed Last Taken Type Buspirone HCl [busPIRone] 15 mg PO DAILY 11/04/21 11/04/21 Unknown History Furosemide [Lasix] 40 mg PO QDAY 11/04/21 11/04/21 Unknown History HYDROcodone/APAP 10-325 [Nichols 1 each PO Q8HR PRN 11/04/21 11/04/21 Unknown History 10/325] Levothyroxine [Synthroid] 125 mcg PO QAM 11/04/21 11/04/21 Unknown History Loratadine [Allergy Relief] 10 mg PO QDAY PRN 11/04/21 11/04/21 Unknown History Meclizine [Antivert] 12.5 mg PO BID PRN 11/04/21 11/04/21 Unknown History Nitroglycerin [Nitrostat] 0.4 mg SL PRN PRN 11/04/21 11/04/21 Unknown History Omeprazole Magnesium [Prilosec] 20 mg PO QDAY 11/04/21 11/04/21 Unknown History Pravastatin Sodium [Pravastatin] 20 mg PO QHS 11/04/21 11/04/21 Unknown History Prednisone [predniSONE (Rebeca) ER 1 mg PO QDAY 11/04/21 11/04/21 Unknown History TAB] allopurinoL [Zyloprim] 300 mg PO QDAY 11/04/21 11/04/21 Unknown History ondansetron HCL [Zofran] 4 mg PO Q6HR PRN 11/04/21 11/04/21 Unknown History Active Meds: Active Medications Acetaminophen (Acetaminophen 325 Mg Tab) 650 mg PO Q6H PRN PRN Reason: Pain MILD(1-3)/Fever >100.5/RODRIGUEZ Last Admin: 11/16/21 15:43 Dose: 650 mg Hydrocodone Bitart/Acetaminophen (Hydrocodone/Acetaminophen 10-325mg Tab) 1 each FEEDTUBE TID [facility] Last Admin: 11/23/21 08:25 Dose: 1 each Lipase/Protease/Amylase (Lipase 10,500/Protease 25,000/Amylase 43,750 (Units) Dr Cap) 1 each FEEDTUBE PRN PRN PRN Reason: For Clogged Feeding Tube Buspirone HCl (Buspirone 5 Mg Tab) 7.5 mg PO BID [facility] Last Admin: 11/23/21 10:12 Dose: 7.5 mg Dextrose (Dextrose 10% *Hypoglycemia) 0 ml IV PRN PRN PRN Reason: Hypoglycemia Last Admin: 11/21/21 16:27 Dose: 50 ml Docusate Sodium (Docusate Sodium 100 Mg/10 Ml Oral Liqd) 100 mg PO BID [facility] Last Admin: 11/23/21 09:28 Dose: 100 mg Fentanyl (Fentanyl 25 Mcg/Hr Patch 72hr) 1 applic TD Q3D [facility] Last Admin: 11/23/21 09:29 Dose: 1 applic Hydrophilic Ointment (Lip Therapy Vaseline) 1 applic TP Q2HR PRN PRN Reason: Dry Lips NORepinephrine/NS 8 MG-250 ML (Norepinephrine/Ns 8 Mg-250 Ml (Double Conc)) 8 mg in 250 mls @ 3.75 mls/hr IV TITRATE YOSSI; Protocol Last Titration: 11/18/21 03:26 Dose: 0 mcg/min, 0 mls/hr Fentanyl Citrate (Fentanyl Drip Premix) 2,000 mcg in 100 mls @ 3.12 mls/hr IV TITR YOSSI; Protocol Last Titration: 11/22/21 18:04 Dose: 0 mcg/kg/hr, 0 mls/hr Insulin Human Lispro (Insulin Lispro 100 Unit/Ml) 0 unit SUB-Q Q6HR [facility]; Protocol Last Admin: 11/23/21 05:43 Dose: Not Given Levothyroxine Sodium (Levothyroxine 125 Mcg Tab) 125 mcg PO DAILY@0600 [facility] Last Admin: 11/23/21 05:49 Dose: 125 mcg Magnesium Hydroxide (Magnesium Hydroxide (Mom) Oral Liqd Udc) 30 ml PO Q4H PRN PRN Reason: Constipation Metoprolol Tartrate (Metoprolol Tartrate 25 Mg Tab) 12.5 mg PO BID [facility] Last Admin: 11/23/21 09:30 Dose: 12.5 mg Multi-Ingred Cream/Lotion/Oil/Oint (Mineral Oil/Petrolatum, White Ophth Oint 3.5 Gm) 1 applic OU Q4HR PRN PRN Reason: Dry Eye(s) Ondansetron HCl (Ondansetron 4 Mg/2 Ml Inj) 4 mg IV Q8H PRN PRN Reason: Nausea And Vomiting Last Admin: 11/05/21 15:48 Dose: 4 mg Pantoprazole Sodium (Pantoprazole 40 Mg Inj) 40 mg IV BID [facility] Last Admin: 11/23/21 09:28 Dose: 40 mg Polyethylene Glycol (Polyethylene Glycol 3350 17 Gm Powder) 17 gm PO QDAY [facility] Last Admin: 11/23/21 09:27 Dose: 17 gm Pravastatin Sodium (Pravastatin 20 Mg Tab) 20 mg PO QHS [facility] Last Admin: 11/22/21 21:25 Dose: 20 mg Quetiapine Fumarate (Quetiapine 25 Mg Tab) 50 mg PO BID [facility] Last Admin: 11/23/21 09:29 Dose: 50 mg Senna (Sennosides Oral Liqd 8.8 Mg/5 Ml Oral Liqd) 17.6 mg PO Q12HR [facility] Last Admin: 11/23/21 09:28 Dose: 17.6 mg Simple Syrup (Simple Syrup 15 Ml) 15 ml FEEDTUBE PRN PRN PRN Reason: Hypoglycemia Simple Syrup (Simple Syrup 15 Ml) 30 ml FEEDTUBE PRN PRN PRN Reason: Hypoglycemia Sodium Bicarbonate (Sodium Bicarbonate 325 Mg Tab) 325 mg FEEDTUBE PRN PRN PRN Reason: For Clogged Feeding Tube Sodium Chloride (Sodium Chloride 0.9% 10 Ml Flush Syringe) 10 ml IV BID [facility] Last Admin: 11/23/21 09:27 Dose: 10 ml Sodium Chloride (Sodium Chloride 0.9% 10 Ml Flush Syringe) 10 ml IV PRN PRN PRN Reason: LINE FLUSH Sodium Chloride (Sodium Chloride 0.9% 50 Ml Ivpb) 10 ml IV PRN PRN PRN Reason: FLUSH Last Admin: 11/17/21 20:47 Dose: 10 ml Sucralfate (Sucralfate 1 Gm/10 Ml Oral Liqd) 1 gm PO ACHS [facility] Last Admin: 11/23/21 10:56 Dose: 1 gm Review of Systems ROS unobtainable: due to endotracheal tube, due to mental status Exam Vital Signs Temp Pulse Resp BP Pulse Ox 99.7 F H 120 H 26 H 110/70 88 11/03/21 22:15 11/03/21 22:15 11/03/21 22:15 11/03/21 22:15 11/03/21 22:15 Narrative exam: Gen; Intubated. ENT: ETT and OGT in place. no LAD, pulsatile masses, Trachea midline CV: S1, S2+ Resp; on vent Abd: soft, NT, ND Ext: +edema Results - Labs 11/24/21 04:13 11/24/21 04:13 Abnormal lab results 11/22/21 11/23/21 11/23/21 Range/Units 23:54 04:38 04:38 RBC 3.23 L (3.65-5.03) M/mm3 Hgb 8.8 L (10.1-14.3) gm/dl Hct 28.0 L (30.3-42.9) % MCH 27 L (28-32) pg RDW 21.3 H (13.2-15.2) % Sodium 136 L (137-145) mmol/L Carbon Dioxide 20 L (22-30) mmol/L BUN 32 H (7-17) mg/dL Glucose 109 H (65-100) mg/dL POC Glucose 110 H (70-105) mg/dL Calcium 7.7 L (8.4-10.2) mg/dL 11/23/21 Range/Units 06:01 RBC (3.65-5.03) M/mm3 Hgb (10.1-14.3) gm/dl Hct (30.3-42.9) % MCH (28-32) pg RDW (13.2-15.2) % Sodium (137-145) mmol/L Carbon Dioxide (22-30) mmol/L BUN (7-17) mg/dL Glucose (65-100) mg/dL POC Glucose 115 H (70-105) mg/dL Calcium (8.4-10.2) mg/dL Diabetes panel 11/23/21 Range/Units 04:38 Sodium 136 L (137-145) mmol/L Potassium 4.4 (3.6-5.0) mmol/L Chloride 106.5 (98-107) mmol/L Carbon Dioxide 20 L (22-30) mmol/L BUN 32 H (7-17) mg/dL Creatinine 0.9 (0.6-1.2) mg/dL Glucose 109 H (65-100) mg/dL Calcium 7.7 L (8.4-10.2) mg/dL Calcium panel 11/23/21 Range/Units 04:38 Calcium 7.7 L (8.4-10.2) mg/dL Pituitary panel 11/23/21 Range/Units 04:38 Sodium 136 L (137-145) mmol/L Potassium 4.4 (3.6-5.0) mmol/L Chloride 106.5 (98-107) mmol/L Carbon Dioxide 20 L (22-30) mmol/L BUN 32 H (7-17) mg/dL Creatinine 0.9 (0.6-1.2) mg/dL Glucose 109 H (65-100) mg/dL Calcium 7.7 L (8.4-10.2) mg/dL Adrenal panel 11/23/21 Range/Units 04:38 Sodium 136 L (137-145) mmol/L Potassium 4.4 (3.6-5.0) mmol/L Chloride 106.5 (98-107) mmol/L Carbon Dioxide 20 L (22-30) mmol/L BUN 32 H (7-17) mg/dL Creatinine 0.9 (0.6-1.2) mg/dL Glucose 109 H (65-100) mg/dL Calcium 7.7 L (8.4-10.2) mg/dL - Imaging Chest x-ray: report reviewed, image reviewed Assessment and Plan 81 yo F with 1. VDRF 2. PNA 3. sepsis Vent: FIO2 30%, PEEP 6 Plan: 1. Candidate for trach/PEG. Will discuss with family 2. vent management per ICU team 3. continue TF as justina Thank you for this consultation. Please call with any questions or concerns. Evaluation and treatment of this patient was during the time of the national and state emergency arising from COVID19 coronavirus pandemic. Treatment and procedures performed meet the current and available best practice and guidelines for patient during the COVID pandemic.
--- NOTE | 2021-11-23 11:46 | Progress Note ---
<LONNIE MAURICE - Last Filed: 11/23/21 17:09> Assessment and Plan Assessment and plan: This is a 81-year-old female with known history of diabetes mellitus, hypertension, PPM, and arthritis admitted for sepsis and acute hypoxia respiratory failure 2/2 bilateral pneumonia requiring intubation and ventilatory support Hospital Course to date: 11/04/2021: Empiric therapy with iv levaquin/vancomycin. COVID PCR pending. Will consult ID. PCCM consulted, will follow recs. Hypotensive this AM, ordered bolus and fluids at 150 cc/hr. May require pressor support if bp does not improve. 11/05/2021: GBS on bcx +, currently on rocephin IV. Currently on bipap due to respiratory distress overnight. Worsening BL opacities on CXR. May be volume overload vs pneumonia. Unfortunately bp too low for lasix at this point. WIll continue levophed and bipap. Once able to tolerate, may do trial of albumin/lasi x. Call attempt made to Niraj, no response. Will try again tomorrow to update. 11/06/2021: Decompensated overnight requiring intubation. CXR shows worsening interstitial infiltrates. Currenlty on dopamine, levophed, vasopressin. PICC line ordered. Advised RN to place gamble for I/O monitoring. Would benefit from diuresis but very volume overloaded. Prognosis guarded 11/08: Off sedation this am, remains unresponsive only grimace to pain. Hold all sedatives agents for now, patient is off pressors this am. Hypernatremia from today's lab- D5W X1bag, and low K repleted, repeat lab in the am. Severe constipation also noted from KUB, BR added. 11/09: Sudden SPO2 drop in the 60s this am. Patient was manually bagged and deep suctioned. Patient is currently stable on the vent, repeat CXR with no significant change. D/w CCM Mucomyst and brochodilator added. Patient mentation is unchanged, continue to hold off on sedative agents. Neurology consulted. 11/10: Acute DVT noted on bilateral lower extremity Doppler ultrasound therefore she was started on Lovenox treatment dose. Failed SBT. Hypernatremia and hyperchloremia noted, free water flush adjusted. 11/11: Patient noted to be febrile with increasing of the cytosis, UA/BC sent and CXR ordered. ID escalated antibiotics to cefepime. CXR demonstrated mucous plug, bedside bronchoscopy was performed and O ETT was changed over bougie from 6 cm to 7.5. Patient was noted to have a pneumothorax postprocedure and chest tube was placed. Family updated by [facility]. Free water flush increased and will add Jaswant supplementation. 11/12: Patient not noted to follow commands, hypernatremia worsen/persist, increasing free water flush, potassium and magnesium and phosphorus repleted. Hemoglobin noted to be 7.1/24.5 from 7.03/12 yesterday. We will continue to trend and monitor. Vent changes per [facility]. Repeat CXR showed no residual pneumo thorax. Consider waterseal tomorrow. Given persistent leukocytosis antibiotics escalated to cefepime per ID. 11/13: Remains on cefepime and vancomycin, vent changes per [facility]. Anemia noted and given 1 unit PRBC. And beta-charleen held in setting of Levophed drip infusing. Remains on fentanyl drip. 11/14: Patient put on CPAP trial by [facility], will continue chest tube until after extubation. Will rest on assist control. CT brain was cancelled by [employer] and reordered. 11/15: Patient removed chest tube overnight. Will obtain cxr. remains on low dose levo. CTH completed with no acute findings. RT to place on CPAP. 11/16: Hypernatremia/hyperchloremia noted on the increase of day water flushes. Anemia noted and ordered PRBC. asked RT to place on cpap but not done yet 11/17: Patient remains on the vent, awake and following commands. H&H stable s/p 2units PRBCs. GI on consult, no intervention at this time. Will continue protonix gtt and serial H&H Q6hrs. Keep patient NPO for now, D5w added for hypernatremia and NPO status. Plan for IVC filter placement today by Vascular. 11/18: Patient is s/p IVC filter. H&H continue to trend down, hbg 6.1 this am, 1 unit of PRBCs ordered. Plan for possible EGD today by GI. Keep patient NPO, continue PPI drip and serial H&H Q6hrs. Electrolytes repleted, repeat lab in the am 11/19: S/p EGD- larger duodenal ulcer noted, see operative note. GI recommendat ions noted also noted. H&H stable this am. Keep patient on protonix gtt for now. Will keep patient NPO, continue IVF and serial H&H for now. Electrolytes repleted, repeat labs in the am 2/3: Very agitated and restless this am, fentanyl gtt resumed. Patient remains on protonix gtt, H&H remains stable. Will switch protonix gtt to IV BID, continue carafate and okay to resume meds at this time. Will F/u with GI to see if TF can be resumed. Gamble was reinserted overnight for retention. Electrolytes repleted, repeat in the am. Plan for possible PST today for possible extubation per CCM. 11/21: Patient is now on seroquel and patient's home buspar resumed. Patient more calm this morning, fentanyl gtt is off. H&H remains stable and patient is tolerating TF. Patient had a runs of Vtach/PVCs this am, BB added per Cardio. Continue daily PS and wean trial for possible extubation. 11/22: Back on fentanyl gtt overnight , RASS o to -1, following commands. Patient failed PST this am due to increased work of breathing and low SPO2, ABG pending. Patient is also with worsen pitting edema, lasix is still on hold. Will discuss with cardio and CCM to possibly resume lasix. 11/23: MARIA DEL CARMEN overnight. Patient failed PST again this am. Per CCM plan for possible trach and PEG, hold off on IV lasix for now. General surgery consulted and family is aware of possible Trach and PEG. Assessment and Plan #Septic Shock POA #Bilateral Pneumonia #Bacteremia - Presented with fevers, leukocytosis, and hypotension - COVID PCR negative - 11/04 Bcult with 3/4 group B strep bacteremia - Repeat Bculture NGTD - 11/04 2D Echo with no evidence of vegetation - ID on consult, appreciate recommendations - Patient completed IV Abx course - F/u on culture data - Trend CBC #Acute Hypoxic Respiratory Failure 2/ #Right Pneumothorax #Bilateral Pleural Effusion #Bilateral Pneumonia - COVID PCR negative - CXR shows Bilateral opacities, may be volume overloaded - CCM consulted, appreciate recommendations - Intubated on 11/06, ETT exchanged on 11/11 - 11/11 Bronchoscopy--Complicated by spontaneous pneumothorax - 11/11 S/p chest tube placement for right pneumothorax, removed by patient on 11/15 - 11/15 Repeat CXR with resolve Pneumo - This am Vent Setting:A/C-30%,6,14,400 - Today ABG pending - Continue Nebs treatmen - Continue daily PST as tolerated - VAP bundle addressed - Aspiration precaution HOB above 30 - ABG and CXR per CCM - Continue SPO2 monitoring for SPO2 goal above 92% - Plan for possible Trach and PEG - General Surgery consulted #CHF- EF 30-35% with PPM #Hypotension-Resolved #Septic Kristian - Was on 3 pressors initially - BP remains stable - SR on the monitor, HR 70-90s - 11/04 Echo-EF 30-35% - Cardiology on consult - Continue beta-charleen - Not on aspirin due to allergy - Statins resumed - Continue blood pressure monitor per protocol - Maintain MAP above 65 #Acute Blood Loss #Acute GI Bleed #Acute Microcytic Anemia - Report of melena &black tarry stools - s/p a total of 5units of PRBCs since admit - H&H remains stable post EGD - GI on consult - 11/18 EGD- Large cratered ulcer in the posterior duodenal bulb about 2 cm in diameter. Visible vessel present. Mild active oozing from the ulcer bed. A total of 3 injections were performed around the ulcer for a total of 2.5 cc of dilute epinephrine and hemostasis was obtained.--> See full report - Protonix gtt switched to IV push BID - Continue Carafate - Patient is tolerating TF - Continue to trend CBC - Transfuse for H&H less than 7 - Hold AC for now #Hypokalemia #Hypernatremia-improved - Strict intake and output - Continue to monitor and replace electrolytes as needed - Trend BMP,mag, & phosp #Urinary Retention - Gamble reinserted on 11/19 for retention - Keep gamble for now, will reassess in 3 to 5days #Acute DVT in RLE - BLE doppler + Acute DVT in the right external iliac vein, common femoral vein, and superior aspect of femoral vein - Was on Therapeutic Lovenox- held to due GI Bleed - 11/17 s/p IVC filter placement by Vascular Surg #Agitation #Acute Encephalopathy-Resolved - Awake and agitated this am, following commands - Fentanyl gtt resumed, titrate for RASS goal of 0 to -1 - CT head noted - Neurology consulted - Resumed Buspar #Transaminitis/Shock Liver - Probably due to bacteria/spetic shock - Continue to Trend LFTs The high probability of a clinically significant, sudden or life threatening deterioration of the [multi] system(s) required my full and direct attention, intervention and personal management. The aggregate critical care time was [60] minutes. This time is in addition to time spent performing reported procedures but includes the following: [x] Data Review and interpretation [x] Patient assessment and monitoring of vital signs [x] Documentation [x] Medication orders and management Disposition Plan: ICU Total Time Spent with Patient (Minutes): 60 History Interval history: Patient seen and examined at the bedside. Patient remains on the vent. Drowsy but following commands. Off fentanyl gtt this am. Patient failed PST again this am, Per RT patient had increased work off breathing with 2 minutes. MARIA DEL CARMEN overnight Hospitalist Physical - Constitutional Vitals: Temp Pulse Resp BP Pulse Ox 98.3 F 80 17 111/40 98 11/23/21 07:36 11/23/21 11:00 11/23/21 11:00 11/23/21 11:00 11/23/21 11:00 General appearance: Present: no acute distress, other (On the vent) - EENT Eyes: Present: PERRL ENT: hearing intact - Neck Neck: Present: normal ROM - Respiratory Respiratory effort: normal Respiratory: bilateral: rhonchi - Cardiovascular Rhythm: regular Heart Sounds: Present: S1 & S2 - Extremities Extremities: no ischemia, pulses intact, pulses symmetrical Extremity abnormal: edema - Peripheral Assessment Bilateral Upper Extremity Edema Type: Pitting Edema Degree: 3+ Capillary Refill: < 3 seconds Skin Temperature: Warm Peripheral Pulses: within normal limits - Abdominal General gastrointestinal: soft, non-distended, normal bowel sounds - Integumentary Integumentary: Present: warm, dry - Psychiatric Psychiatric: appropriate mood/affect, cooperative, other (On the vent) - Neurologic Neurologic: moves all extremities, other (On the vent) - Allied Health Allied health notes reviewed: nursing HEART Score - HEART Score Troponin: Troponin T 0.033 ng/mL (0.00-0.029) H 11/05/21 06:11 Results - Labs CBC & Chem 7: 11/23/21 04:38 11/23/21 04:38 Labs: Laboratory Last Values WBC 9.3 K/mm3 (4.5-11.0) 11/23/21 04:38 RBC 3.23 M/mm3 (3.65-5.03) L 11/23/21 04:38 Hgb 8.8 gm/dl (10.1-14.3) L 11/23/21 04:38 Hct 28.0 % (30.3-42.9) L 11/23/21 04:38 MCV 87 fl (79-97) 11/23/21 04:38 MCH 27 pg (28-32) L 11/23/21 04:38 MCHC 32 % (30-34) 11/23/21 04:38 RDW 21.3 % (13.2-15.2) H 11/23/21 04:38 Plt Count 227 K/mm3 (140-440) 11/23/21 04:38 Add Manual Diff Complete 11/16/21 15:25 Total Counted 100 11/16/21 15:25 Seg Neutrophils % Business Management Associate 11/06/21 15:50 Seg Neuts % (Manual) 87.0 % (40.0-70.0) H 11/16/21 15:25 Band Neutrophils % 0 % 11/16/21 15:25 Lymphocytes % (Manual) 8.0 % (13.4-35.0) L 11/16/21 15:25 Reactive Lymphs % (Man) 0 % 11/16/21 15:25 Monocytes % (Manual) 5.0 % (0.0-7.3) 11/16/21 15:25 Eosinophils % (Manual) 0 % (0.0-4.3) 11/16/21 15:25 Basophils % (Manual) 0 % (0.0-1.8) 11/16/21 15:25 Metamyelocytes % 0 % 11/16/21 15:25 Myelocytes % 0 % 11/16/21 15:25 Promyelocytes % 0 % 11/16/21 15:25 Blast Cells % 0 % 11/16/21 15:25 Nucleated RBC % Not Reportable 11/16/21 15:25 Seg Neutrophils # Man 15.0 K/mm3 (1.8-7.7) H 11/16/21 15:25 Band Neutrophils # 0.0 K/mm3 11/16/21 15:25 Lymphocytes # (Manual) 1.4 K/mm3 (1.2-5.4) 11/16/21 15:25 Abs React Lymphs (Man) 0.0 K/mm3 11/16/21 15:25 Monocytes # (Manual) 0.9 K/mm3 (0.0-0.8) H 11/16/21 15:25 Eosinophils # (Manual) 0.0 K/mm3 (0.0-0.4) 11/16/21 15:25 Basophils # (Manual) 0.0 K/mm3 (0.0-0.1) 11/16/21 15:25 Metamyelocytes # 0.0 K/mm3 11/16/21 15:25 Myelocytes # 0.0 K/mm3 11/16/21 15:25 Promyelocytes # 0.0 K/mm3 11/16/21 15:25 Blast Cells # 0.0 K/mm3 11/16/21 15:25 WBC Morphology Not Reportable 11/16/21 15:25 Hypersegmented Neuts Not Reportable 11/16/21 15:25 Hyposegmented Neuts Not Reportable 11/16/21 15:25 Hypogranular Neuts Not Reportable 11/16/21 15:25 Smudge Cells Not Reportable 11/16/21 15:25 Toxic Granulation Not Reportable 11/16/21 15:25 Toxic Vacuolation Not Reportable 11/16/21 15:25 Dohle Bodies Not Reportable 11/16/21 15:25 Pelger-Huet Anomaly Not Reportable 11/16/21 15:25 Irina Rods Not Reportable 11/16/21 15:25 Platelet Estimate Consistent w auto 11/16/21 15:25 Clumped Platelets Rare 11/16/21 15:25 Plt Clumps, EDTA Not Reportable 11/16/21 15:25 Large Platelets Not Reportable 11/16/21 15:25 Giant Platelets Not Reportable 11/16/21 15:25 Platelet Satelliting Not Reportable 11/16/21 15:25 Plt Morphology Comment Not Reportable 11/16/21 15:25 RBC Morphology Not Reportable 11/16/21 15:25 Dimorphic RBCs Not Reportable 11/16/21 15:25 Polychromasia Not Reportable 11/16/21 15:25 Hypochromasia 2+ 11/16/21 15:25 Poikilocytosis Not Reportable 11/16/21 15:25 Anisocytosis 2+ 11/16/21 15:25 Microcytosis Not Reportable 11/16/21 15:25 Macrocytosis Not Reportable 11/16/21 15:25 Spherocytes Not Reportable 11/16/21 15:25 Pappenheimer Bodies Not Reportable 11/16/21 15:25 Sickle Cells Not Reportable 11/16/21 15:25 Target Cells 2+ 11/16/21 15:25 Tear Drop Cells Not Reportable 11/16/21 15:25 Ovalocytes Not Reportable 11/16/21 15:25 Helmet Cells Not Reportable 11/16/21 15:[address] [place] Bodies Not Reportable 11/16/21 15:25 [place] Rings Not Reportable 11/16/21 15:25 Malcom Cells Not Reportable 11/16/21 15:25 Bite Cells Not Reportable 11/16/21 15:25 Crenated Cell Not Reportable 11/16/21 15:25 Elliptocytes Not Reportable 11/16/21 15:25 Acanthocytes (Spur) Not Reportable 11/16/21 15:25 Rouleaux Not Reportable 11/16/21 15:25 Hemoglobin C Crystals Not Reportable 11/16/21 15:25 Schistocytes Not Reportable 11/16/21 15:25 Malaria parasites Not Reportable 11/16/21 15:25 Godfrey Bodies Not Reportable 11/16/21 15:25 Hem Pathologist Commnt No 11/16/21 15:25 PT 18.6 Sec. (12.2-14.9) H 11/03/21 22:32 INR 1.40 (0.87-1.13) H 11/03/21 22:32 APTT 28.9 Sec. (24.2-36.6) 11/03/21 22:32 D-Dimer 2655.00 ng/mlDDU (0-234) H 11/11/21 04:28 ABG pH 7.449 pH Units (7.350-7.450) 11/21/21 16:00 ABG pCO2 32.1 mm Hg 11/21/21 16:00 ABG pO2 114.2 mm Hg (80.0-90.0) H 11/21/21 16:00 ABG HCO3 21.8 mmol/L (20.0-26.0) 11/21/21 16:00 ABG O2 Saturation 98.3 % (95.0-99.0) 11/21/21 16:00 ABG O2 Content 12.5 (0.0-44) 11/21/21 16:00 ABG Base Excess -1.7 mmol/L (-2.0-3.0) 11/21/21 16:00 ABG Hemoglobin 9.1 gm/dl (12.0-16.0) L 11/21/21 16:00 ABG Carboxyhemoglobin 1.9 % (0.0-5.0) 11/21/21 16:00 ABG Methemoglobin 0.5 % (0.0-1.5) 11/21/21 16:00 Oxyhemoglobin 96.0 % (95.0-99.0) 11/21/21 16:00 FiO2 30 % 11/21/21 16:00 Sodium 136 mmol/L (137-145) L 11/23/21 04:38 Potassium 4.4 mmol/L (3.6-5.0) 11/23/21 04:38 Chloride 106.5 mmol/L (98-107) 11/23/21 04:38 Carbon Dioxide 20 mmol/L (22-30) L 11/23/21 04:38 Anion Gap 14 mmol/L 11/23/21 04:38 BUN 32 mg/dL (7-17) H 11/23/21 04:38 Creatinine 0.9 mg/dL (0.6-1.2) 11/23/21 04:38 Estimated GFR 60 ml/min 11/23/21 04:38 BUN/Creatinine Ratio 36 % 11/23/21 04:38 Glucose 109 mg/dL (65-100) H 11/23/21 04:38 POC Glucose 115 mg/dL (70-105) H 11/23/21 06:01 Lactic Acid 3.70 mmol/L (0.7-2.0) H* 11/03/21 22:32 Calcium 7.7 mg/dL (8.4-10.2) L 11/23/21 04:38 Phosphorus 3.30 mg/dL (2.5-4.5) 02/05/22 07:07 Magnesium 1.90 mg/dL (1.7-2.3) 11/22/21 07:07 Ferritin 52.6 ng/mL (10.0-200.0) 11/05/21 06:11 Total Bilirubin 0.50 mg/dL (0.1-1.2) 11/17/21 05:56 Direct Bilirubin < 0.2 mg/dL (0-0.2) 11/11/21 04:28 Indirect Bilirubin 0.1 mg/dL 11/11/21 04:28 AST 36 units/L (5-40) 11/17/21 05:56 ALT 47 units/L (7-56) 11/17/21 05:56 Alkaline Phosphatase 107 units/L (35-129) 11/17/21 05:56 Ammonia 42.0 umol/L (25-60) 11/10/21 14:08 Lactate Dehydrogenase 187 units/L (91-180) H 11/05/21 06:11 Troponin T 0.033 ng/mL (0.00-0.029) H 11/05/21 06:11 C-Reactive Protein 22.20 mg/dL (0.00-1.30) H 11/05/21 06:11 NT-Pro-B Natriuret Pep 7895 pg/mL (0-900) H 11/03/21 22:32 Total Protein 5.1 g/dL (6.3-8.2) L 11/17/21 05:56 Albumin 2.2 g/dL (3.9-5) L 11/17/21 05:56 Albumin/Globulin Ratio 0.8 % 11/17/21 05:56 Triglycerides 66 mg/dL (2-149) 11/03/21 22:32 Cholesterol 80 mg/dL (50-199) 11/03/21 22:32 LDL Cholesterol Direct 34 mg/dL (50-130) L 11/03/21 22:32 HDL Cholesterol 42 mg/dL (40-59) 11/03/21 22:32 Cholesterol/HDL Ratio 1.90 % 11/03/21 22:32 Vitamin B12 1823 pg/mL (211-911) H 11/10/21 14:08 TSH 1.510 mlU/mL (0.270-4.200) 11/10/21 14:08 Urine Color Yellow (Yellow) 11/11/21 09:00 Urine Turbidity Slightly-cloudy (Clear) 11/11/21 09:00 Urine pH 5.0 (5.0-7.0) 11/11/21 09:00 Ur Specific [place] 1.009 (1.003-1.030) 11/11/21 09:00 Urine Protein <15 mg/dl mg/dL (Negative) 11/11/21 09:00 Urine Glucose (UA) Neg mg/dL (Negative) 11/11/21 09:00 Urine Ketones Neg mg/dL (Negative) 11/11/21 09:00 Urine Blood Mod (Negative) 11/11/21 09:00 Urine Nitrite Neg (Negative) 11/11/21 09:00 Urine Bilirubin Neg (Negative) 11/11/21 09:00 Urine Urobilinogen < 2.0 mg/dL (<2.0) 11/11/21 09:00 Ur Leukocyte Esterase Neg (Negative) 11/11/21 09:00 Urine WBC (Auto) < 1.0 /HPF (0.0-6.0) 11/11/21 09:00 Urine RBC (Auto) < 1.0 /HPF (0.0-6.0) 11/11/21 09:00 Coronavirus (PCR) Negative (Negative) 11/10/21 08:30 Blood Type O POSITIVE 11/18/21 10:45 Antibody Screen Negative 11/18/21 10:45 Crossmatch See Detail 11/18/21 10:45 Gamble/IV: Voiding Method Indwelling Catheter Active Medications - Current Medications Current Medications: Generic Name Dose Route Start Last Admin Trade Name Freq PRN Reason Stop Dose Admin Acetaminophen 650 mg 11/04/21 02:03 11/16/21 15:43 Acetaminophen 325 Mg Tab PO 650 mg Q6H PRN Administration Pain MILD(1-3)/Fever >100.5/ORDRIGUEZ Hydrocodone Bitart/Acetaminophen 1 each 11/21/21 10:00 11/23/21 08:25 Hydrocodone/Acetaminophen 10-325mg Tab FEEDTUBE 1 each TID YOSSI Administration Lipase/Protease/Amylase 1 each 11/08/21 11:09 Lipase 10,500/Protease 25,000/Amylase 43,750 (Units) Dr Cap FEEDTUBE PRN PRN For Clogged Feeding Tube Buspirone HCl 7.5 mg 11/17/21 22:00 11/23/21 10:12 Buspirone 5 Mg Tab PO 7.5 mg BID YOSSI Administration Dextrose 0 ml 11/10/21 10:52 11/21/21 16:27 Dextrose 10% *Hypoglycemia IV 50 ml PRN PRN Administration Hypoglycemia Docusate Sodium 100 mg 11/08/21 12:00 11/23/21 09:28 Docusate Sodium 100 Mg/10 Ml Oral Liqd PO 100 mg BID YOSSI Administration Fentanyl 1 applic 11/17/21 13:00 11/23/21 09:29 Fentanyl 25 Mcg/Hr Patch 72hr TD 1 applic Q3D YOSSI Administration Hydrophilic Ointment 1 applic 11/06/21 04:02 Lip Therapy Vaseline TP Q2HR PRN Dry Lips NORepinephrine/NS 8 MG-250 ML 8 mg in 250 mls @ 3.75 mls/hr 11/05/21 09:00 11/18/21 03:26 Norepinephrine/Ns 8 Mg-250 Ml (Double Conc) IV 0 mcg/min TITRATE YOSSI 0 mls/hr Titration Protocol 2 MCG/MIN Fentanyl Citrate 2,000 mcg in 100 mls @ 3.12 mls/hr 11/17/21 13:00 11/22/21 18:04 Fentanyl Drip Premix IV 0 mcg/kg/hr TITR YOSSI 0 mls/hr Titration Protocol 1 MCG/KG/HR Insulin Human Lispro 0 unit 11/06/21 12:00 11/23/21 05:43 Insulin Lispro 100 Unit/Ml SUB-Q Not Given Q6HR [facility] Protocol Levothyroxine Sodium 125 mcg 11/05/21 07:00 11/23/21 05:49 Levothyroxine 125 Mcg Tab PO 125 mcg DAILY@0600 YOSSI Administration Magnesium Hydroxide 30 ml 11/04/21 02:03 Magnesium Hydroxide (Mom) Oral Liqd Udc PO Q4H PRN Constipation Metoprolol Tartrate 12.5 mg 11/21/21 10:00 11/23/21 09:30 Metoprolol Tartrate 25 Mg Tab PO 12.5 mg BID YOSSI Administration Multi-Ingred Cream/Lotion/Oil/Oint 1 applic 11/06/21 04:02 Mineral Oil/Petrolatum, White Ophth Oint 3.5 Gm OU Q4HR PRN Dry Eye(s) Ondansetron HCl 4 mg 11/04/21 02:03 11/05/21 15:48 Ondansetron 4 Mg/2 Ml Inj IV 4 mg Q8H PRN Administration Nausea And Vomiting Pantoprazole Sodium 40 mg 11/20/21 22:00 11/23/21 09:28 Pantoprazole 40 Mg Inj IV 40 mg BID YOSSI Administration Polyethylene Glycol 17 gm 11/08/21 12:00 11/23/21 09:27 Polyethylene Glycol 3350 17 Gm Powder PO 17 gm QDAY YOSSI Administration Pravastatin Sodium 20 mg 11/18/21 22:00 11/22/21 21:25 Pravastatin 20 Mg Tab PO 20 mg QHS YOSSI Administration Quetiapine Fumarate 50 mg 11/20/21 22:00 11/23/21 09:29 Quetiapine 25 Mg Tab PO 50 mg BID YOSSI Administration Senna 17.6 mg 11/08/21 22:00 11/23/21 09:28 Sennosides Oral Liqd 8.8 Mg/5 Ml Oral Liqd PO 17.6 mg Q12HR YOSSI Administration Simple Syrup 15 ml 11/08/21 11:09 Simple Syrup 15 Ml FEEDTUBE PRN PRN Hypoglycemia Simple Syrup 30 ml 11/08/21 11:09 Simple Syrup 15 Ml FEEDTUBE PRN PRN Hypoglycemia Sodium Bicarbonate 325 mg 11/08/21 11:09 Sodium Bicarbonate 325 Mg Tab FEEDTUBE PRN PRN For Clogged Feeding Tube Sodium Chloride 10 ml 11/04/21 10:00 11/23/21 09:27 Sodium Chloride 0.9% 10 Ml Flush Syringe IV 10 ml BID YOSSI Administration Sodium Chloride 10 ml 11/04/21 02:03 Sodium Chloride 0.9% 10 Ml Flush Syringe IV PRN PRN LINE FLUSH Sodium Chloride 10 ml 11/10/21 09:57 11/17/21 20:47 Sodium Chloride 0.9% 50 Ml Ivpb IV 10 ml PRN PRN Administration FLUSH Sucralfate 1 gm 11/18/21 16:30 11/23/21 10:56 Sucralfate 1 Gm/10 Ml Oral Liqd PO 1 gm ACHS YOSSI Administration Nutrition/Malnutrition Assess - Dietary Evaluation Nutrition/Malnutrition Findings: Nutrition Notes Start: 11/04/21 17:16 Freq: Status: Active Protocol: Document 11/20/21 15:54 ISABELL (Rec: 11/20/21 16:31 ISABELL [id number]) Nutrition Notes Initial or Follow up Reassessment Current Diagnosis Decubitus(Pressure Ulcer), Diabetes,Sepsis,Hypertension, Respiratory Failure Other Pertinent Diagnosis Septic shock, Bilateral Pneumonia, Lower Extremity Cellulitis. Current Diet TF-Glucerna 1.2 Tamir @ 42 ml/hr (since D 11/20). Labs/Tests 11/20: K 3.5, Cl 108.9, BUN 37 , Glu 117. Pertinent Medications 11/20: D5w 1000 ml @ 75 ml/hr, others nutritionally unremarkable. Height 5 ft Weight 62.4 kg [place] Body Weight (kg) 45.45 BMI 26.9 Weight change and time frame No body weight change reported . Weight Status Appropriate Subjective/Other Information RD consult for routine F/U on TF resume. Pt continues on mechanical ventilation. MD indication to Resume TF. Percent of energy/protein needs met: Prescribed Glucerna 1.2 Tamir @ 42 ml/hr provides for energy/ protein needs (1,208 Kcal/60 g ) during LOS, 100% Kcal; 81% AA. Burn Absent Trauma Absent GI Symptoms Diarrhea Difficulty In Swallowing,Chewing Food Allergy No Skin Integrity/Comment Lower Extremities Pressure Ulcer. Current % PO Other Minimum of two criteria No #1 Nutrition Diagnosis Inadequate oral intake Comments: Pt continues on mechanical ventilation. MD indication to Resume TF. Diagnosis Progress(for reassessment Continues documentation) Is patient on ventilator? Yes Is Patient Ambulatory and/or Out of Bed No REE-([facility]-confined to bed) [phone] Calculation Used for Recommendations [facility] Additional Notes Protein: 1.2-2 g/Kg; 75-125 g/ day. Fluids: 1 ml/Kcal, or as per MD. Nutrition Intervention Nutrition Support: Start Glucerna 1.2 Tamir @ 42 ml /hr. Flush: 70 ml water Q 4 hr, or as per MD. Kcal 1,208 Protein (gm) 60 Carbohydrates (gm) 115 Fat (gm) 60 Fluid (mL) 810 Fiber (gm) 16 % RDI: 100% Kcal; 81% AA. Goal #1 Provide at least 75% of energy /protein needs through Enteral Feeding during LOS. Goal #2 Maintain body weight within +/ -3% of admission body weight during LOS. Follow-Up By: 11/24/21 Additional Comments Continue monitoring TF tolerance and BM. <LEAH ALFONSO - Last Filed: 11/24/21 07:11> Assessment and Plan Assessment and plan: I saw and evaluated the patient. I agree with the findings and the plan of care as documented in the Nurse Practitioner's~note, with the following corrections a nd additions. Hospitalist Physical - Constitutional Vitals: Temp Pulse Resp BP Pulse Ox 100.5 F H 92 H 21 151/55 100 11/24/21 04:00 11/24/21 06:00 11/24/21 06:00 11/24/21 06:00 11/24/21 06:00 HEART Score - HEART Score Troponin: Troponin T 0.033 ng/mL (0.00-0.029) H 11/05/21 06:11 Results - Labs CBC & Chem 7: 11/24/21 04:13 11/24/21 04:13 Labs: Laboratory Last Values WBC 8.3 K/mm3 (4.5-11.0) 11/24/21 04:13 RBC 3.18 M/mm3 (3.65-5.03) L 11/24/21 04:13 Hgb 8.5 gm/dl (10.1-14.3) L 11/24/21 04:13 Hct 27.5 % (30.3-42.9) L 11/24/21 04:13 MCV 86 fl (79-97) 11/24/21 04:13 MCH 27 pg (28-32) L 11/24/21 04:13 MCHC 31 % (30-34) 11/24/21 04:13 RDW 21.6 % (13.2-15.2) H 11/24/21 04:13 Plt Count 240 K/mm3 (140-440) 11/24/21 04:13 Add Manual Diff Complete 11/16/21 15:25 Total Counted 100 11/16/21 15:25 Seg Neutrophils % Business Management Associate 11/06/21 15:50 Seg Neuts % (Manual) 87.0 % (40.0-70.0) H 11/16/21 15:25 Band Neutrophils % 0 % 11/16/21 15:25 Lymphocytes % (Manual) 8.0 % (13.4-35.0) L 11/16/21 15:25 Reactive Lymphs % (Man) 0 % 11/16/21 15:25 Monocytes % (Manual) 5.0 % (0.0-7.3) 11/16/21 15:25 Eosinophils % (Manual) 0 % (0.0-4.3) 11/16/21 15:25 Basophils % (Manual) 0 % (0.0-1.8) 11/16/21 15:25 Metamyelocytes % 0 % 11/16/21 15:25 Myelocytes % 0 % 11/16/21 15:25 Promyelocytes % 0 % 11/16/21 15:25 Blast Cells % 0 % 11/16/21 15:25 Nucleated RBC % Not Reportable 11/16/21 15:25 Seg Neutrophils # Man 15.0 K/mm3 (1.8-7.7) H 11/16/21 15:25 Band Neutrophils # 0.0 K/mm3 11/16/21 15:25 Lymphocytes # (Manual) 1.4 K/mm3 (1.2-5.4) 11/16/21 15:25 Abs React Lymphs (Man) 0.0 K/mm3 11/16/21 15:25 Monocytes # (Manual) 0.9 K/mm3 (0.0-0.8) H 11/16/21 15:25 Eosinophils # (Manual) 0.0 K/mm3 (0.0-0.4) 11/16/21 15:25 Basophils # (Manual) 0.0 K/mm3 (0.0-0.1) 11/16/21 15:25 Metamyelocytes # 0.0 K/mm3 11/16/21 15:25 Myelocytes # 0.0 K/mm3 11/16/21 15:25 Promyelocytes # 0.0 K/mm3 11/16/21 15:25 Blast Cells # 0.0 K/mm3 11/16/21 15:25 WBC Morphology Not Reportable 11/16/21 15:25 Hypersegmented Neuts Not Reportable 11/16/21 15:25 Hyposegmented Neuts Not Reportable 11/16/21 15:25 Hypogranular Neuts Not Reportable 11/16/21 15:25 Smudge Cells Not Reportable 11/16/21 15:25 Toxic Granulation Not Reportable 11/16/21 15:25 Toxic Vacuolation Not Reportable 11/16/21 15:25 Dohle Bodies Not Reportable 11/16/21 15:25 Pelger-Huet Anomaly Not Reportable 11/16/21 15:25 Irina Rods Not Reportable 11/16/21 15:25 Platelet Estimate Consistent w auto 11/16/21 15:25 Clumped Platelets Rare 11/16/21 15:25 Plt Clumps, EDTA Not Reportable 11/16/21 15:25 Large Platelets Not Reportable 11/16/21 15:25 Giant Platelets Not Reportable 11/16/21 15:25 Platelet Satelliting Not Reportable 11/16/21 15:25 Plt Morphology Comment Not Reportable 11/16/21 15:25 RBC Morphology Not Reportable 11/16/21 15:25 Dimorphic RBCs Not Reportable 11/16/21 15:25 Polychromasia Not Reportable 11/16/21 15:25 Hypochromasia 2+ 11/16/21 15:25 Poikilocytosis Not Reportable 11/16/21 15:25 Anisocytosis 2+ 11/16/21 15:25 Microcytosis Not Reportable 11/16/21 15:25 Macrocytosis Not Reportable 11/16/21 15:25 Spherocytes Not Reportable 11/16/21 15:25 Pappenheimer Bodies Not Reportable 11/16/21 15:25 Sickle Cells Not Reportable 11/16/21 15:25 Target Cells 2+ 11/16/21 15:25 Tear Drop Cells Not Reportable 11/16/21 15:25 Ovalocytes Not Reportable 11/16/21 15:25 Helmet Cells Not Reportable 11/16/21 15:[address] [place] Bodies Not Reportable 11/16/21 15:25 [place] Rings Not Reportable 11/16/21 15:25 Malcom Cells Not Reportable 11/16/21 15:25 Bite Cells Not Reportable 11/16/21 15:25 Crenated Cell Not Reportable 11/16/21 15:25 Elliptocytes Not Reportable 11/16/21 15:25 Acanthocytes (Spur) Not Reportable 11/16/21 15:25 Rouleaux Not Reportable 11/16/21 15:25 Hemoglobin C Crystals Not Reportable 11/16/21 15:25 Schistocytes Not Reportable 11/16/21 15:25 Malaria parasites Not Reportable 11/16/21 15:25 Godfrey Bodies Not Reportable 11/16/21 15:25 Hem Pathologist Commnt No 11/16/21 15:25 PT 18.6 Sec. (12.2-14.9) H 11/03/21 22:32 INR 1.40 (0.87-1.13) H 11/03/21 22:32 APTT 28.9 Sec. (24.2-36.6) 11/03/21 22:32 D-Dimer 2655.00 ng/mlDDU (0-234) H 11/11/21 04:28 ABG pH 7.449 pH Units (7.350-7.450) 11/21/21 16:00 ABG pCO2 32.1 mm Hg 11/21/21 16:00 ABG pO2 114.2 mm Hg (80.0-90.0) H 11/21/21 16:00 ABG HCO3 21.8 mmol/L (20.0-26.0) 11/21/21 16:00 ABG O2 Saturation 98.3 % (95.0-99.0) 11/21/21 16:00 ABG O2 Content 12.5 (0.0-44) 11/21/21 16:00 ABG Base Excess -1.7 mmol/L (-2.0-3.0) 11/21/21 16:00 ABG Hemoglobin 9.1 gm/dl (12.0-16.0) L 11/21/21 16:00 ABG Carboxyhemoglobin 1.9 % (0.0-5.0) 11/21/21 16:00 ABG Methemoglobin 0.5 % (0.0-1.5) 11/21/21 16:00 Oxyhemoglobin 96.0 % (95.0-99.0) 11/21/21 16:00 FiO2 30 % 11/21/21 16:00 Sodium 138 mmol/L (137-145) 11/24/21 04:13 Potassium 4.6 mmol/L (3.6-5.0) 11/24/21 04:13 Chloride 103.8 mmol/L (98-107) 11/24/21 04:13 Carbon Dioxide 23 mmol/L (22-30) 11/24/21 04:13 Anion Gap 16 mmol/L 11/24/21 04:13 BUN 31 mg/dL (7-17) H 11/24/21 04:13 Creatinine 1.0 mg/dL (0.6-1.2) 11/24/21 04:13 Estimated GFR 53 ml/min 11/24/21 04:13 BUN/Creatinine Ratio 31 % 11/24/21 04:13 Glucose 101 mg/dL (65-100) H 11/24/21 04:13 POC Glucose 115 mg/dL (70-105) H 11/24/21 05:30 Lactic Acid 3.70 mmol/L (0.7-2.0) H* 11/03/21 22:32 Calcium 7.7 mg/dL (8.4-10.2) L 11/24/21 04:13 Phosphorus 3.10 mg/dL (2.5-4.5) 11/24/21 04:13 Magnesium 1.80 mg/dL (1.7-2.3) 11/24/21 04:13 Ferritin 52.6 ng/mL (10.0-200.0) 11/05/21 06:11 Total Bilirubin 0.50 mg/dL (0.1-1.2) 11/17/21 05:56 Direct Bilirubin < 0.2 mg/dL (0-0.2) 11/11/21 04:28 Indirect Bilirubin 0.1 mg/dL 11/11/21 04:28 AST 36 units/L (5-40) 11/17/21 05:56 ALT 47 units/L (7-56) 11/17/21 05:56 Alkaline Phosphatase 107 units/L (35-129) 11/17/21 05:56 Ammonia 42.0 umol/L (25-60) 11/10/21 14:08 Lactate Dehydrogenase 187 units/L (91-180) H 11/05/21 06:11 Troponin T 0.033 ng/mL (0.00-0.029) H 11/05/21 06:11 C-Reactive Protein 22.20 mg/dL (0.00-1.30) H 11/05/21 06:11 NT-Pro-B Natriuret Pep 7895 pg/mL (0-900) H 11/03/21 22:32 Total Protein 5.1 g/dL (6.3-8.2) L 11/17/21 05:56 Albumin 2.2 g/dL (3.9-5) L 11/17/21 05:56 Albumin/Globulin Ratio 0.8 % 11/17/21 05:56 Triglycerides 66 mg/dL (2-149) 11/03/21 22:32 Cholesterol 80 mg/dL (50-199) 11/03/21 22:32 LDL Cholesterol Direct 34 mg/dL (50-130) L 11/03/21 22:32 HDL Cholesterol 42 mg/dL (40-59) 11/03/21 22:32 Cholesterol/HDL Ratio 1.90 % 11/03/21 22:32 Vitamin B12 1823 pg/mL (211-911) H 11/10/21 14:08 TSH 1.510 mlU/mL (0.270-4.200) 11/10/21 14:08 Urine Color Yellow (Yellow) 11/11/21 09:00 Urine Turbidity Slightly-cloudy (Clear) 11/11/21 09:00 Urine pH 5.0 (5.0-7.0) 11/11/21 09:00 Ur Specific [place] 1.009 (1.003-1.030) 11/11/21 09:00 Urine Protein <15 mg/dl mg/dL (Negative) 11/11/21 09:00 Urine Glucose (UA) Neg mg/dL (Negative) 11/11/21 09:00 Urine Ketones Neg mg/dL (Negative) 11/11/21 09:00 Urine Blood Mod (Negative) 11/11/21 09:00 Urine Nitrite Neg (Negative) 11/11/21 09:00 Urine Bilirubin Neg (Negative) 11/11/21 09:00 Urine Urobilinogen < 2.0 mg/dL (<2.0) 11/11/21 09:00 Ur Leukocyte Esterase Neg (Negative) 11/11/21 09:00 Urine WBC (Auto) < 1.0 /HPF (0.0-6.0) 11/11/21 09:00 Urine RBC (Auto) < 1.0 /HPF (0.0-6.0) 11/11/21 09:00 Coronavirus (PCR) Negative (Negative) 11/10/21 08:30 Blood Type O POSITIVE 11/18/21 10:45 Antibody Screen Negative 11/18/21 10:45 Crossmatch See Detail 11/18/21 10:45 Gamble/IV: Voiding Method Indwelling Catheter Active Medications - Current Medications Current Medications: Generic Name Dose Route Start Last Admin Trade Name Freq PRN Reason Stop Dose Admin Acetaminophen 650 mg 11/04/21 02:03 11/23/21 16:26 Acetaminophen 325 Mg Tab PO 650 mg Q6H PRN Administration Pain MILD(1-3)/Fever >100.5/RODRIGUEZ Hydrocodone Bitart/Acetaminophen 1 each 11/21/21 10:00 11/23/21 21:09 Hydrocodone/Acetaminophen 10-325mg Tab FEEDTUBE 1 each TID YOSSI Administration Lipase/Protease/Amylase 1 each 11/08/21 11:09 Lipase 10,500/Protease 25,000/Amylase 43,750 (Units) Dr Cap FEEDTUBE PRN PRN For Clogged Feeding Tube Buspirone HCl 7.5 mg 11/17/21 22:00 11/23/21 21:08 Buspirone 5 Mg Tab PO 7.5 mg BID YOSSI Administration Dextrose 0 ml 11/10/21 10:52 11/21/21 16:27 Dextrose 10% *Hypoglycemia IV 50 ml PRN PRN Administration Hypoglycemia Docusate Sodium 100 mg 11/08/21 12:00 11/23/21 21:08 Docusate Sodium 100 Mg/10 Ml Oral Liqd PO 100 mg BID YOSSI Administration Fentanyl 1 applic 11/17/21 13:00 11/23/21 09:29 Fentanyl 25 Mcg/Hr Patch 72hr TD 1 applic Q3D YOSSI Administration Hydrophilic Ointment 1 applic 11/06/21 04:02 Lip Therapy Vaseline TP Q2HR PRN Dry Lips NORepinephrine/NS 8 MG-250 ML 8 mg in 250 mls @ 3.75 mls/hr 11/05/21 09:00 11/18/21 03:26 Norepinephrine/Ns 8 Mg-250 Ml (Double Conc) IV 0 mcg/min TITRATE YOSSI 0 mls/hr Titration Protocol 2 MCG/MIN Fentanyl Citrate 2,000 mcg in 100 mls @ 3.12 mls/hr 11/17/21 13:00 11/22/21 18:04 Fentanyl Drip Premix IV 0 mcg/kg/hr TITR YOSSI 0 mls/hr Titration Protocol 1 MCG/KG/HR Insulin Human Lispro 0 unit 11/06/21 12:00 11/24/21 06:21 Insulin Lispro 100 Unit/Ml SUB-Q Not Given Q6HR [facility] Protocol Levothyroxine Sodium 125 mcg 11/05/21 07:00 11/24/21 06:38 Levothyroxine 125 Mcg Tab PO 125 mcg DAILY@0600 YOSSI Administration Magnesium Hydroxide 30 ml 11/04/21 02:03 Magnesium Hydroxide (Mom) Oral Liqd Udc PO Q4H PRN Constipation Metoprolol Tartrate 12.5 mg 11/21/21 10:00 11/23/21 21:14 Metoprolol Tartrate 25 Mg Tab PO 12.5 mg BID [facility] Administration Multi-Ingred Cream/Lotion/Oil/Oint 1 applic 11/06/21 04:02 Mineral Oil/Petrolatum, White Ophth Oint 3.5 Gm OU Q4HR PRN Dry Eye(s) Ondansetron HCl 4 mg 11/04/21 02:03 11/05/21 15:48 Ondansetron 4 Mg/2 Ml Inj IV 4 mg Q8H PRN Administration Nausea And Vomiting Pantoprazole Sodium 40 mg 11/20/21 22:00 11/23/21 21:09 Pantoprazole 40 Mg Inj IV 40 mg BID YOSSI Administration Polyethylene Glycol 17 gm 11/08/21 12:00 11/23/21 09:27 Polyethylene Glycol 3350 17 Gm Powder PO 17 gm QDAY YOSSI Administration Pravastatin Sodium 20 mg 11/18/21 22:00 11/23/21 21:09 Pravastatin 20 Mg Tab PO 20 mg QHS YOSSI Administration Quetiapine Fumarate 50 mg 11/20/21 22:00 11/23/21 21:08 Quetiapine 25 Mg Tab PO 50 mg BID YOSSI Administration Senna 17.6 mg 11/08/21 22:00 11/23/21 21:08 Sennosides Oral Liqd 8.8 Mg/5 Ml Oral Liqd PO 17.6 mg Q12HR YOSSI Administration Simple Syrup 15 ml 11/08/21 11:09 Simple Syrup 15 Ml FEEDTUBE PRN PRN Hypoglycemia Simple Syrup 30 ml 11/08/21 11:09 Simple Syrup 15 Ml FEEDTUBE PRN PRN Hypoglycemia Sodium Bicarbonate 325 mg 11/08/21 11:09 Sodium Bicarbonate 325 Mg Tab FEEDTUBE PRN PRN For Clogged Feeding Tube Sodium Chloride 10 ml 11/04/21 10:00 11/23/21 21:10 Sodium Chloride 0.9% 10 Ml Flush Syringe IV 10 ml BID YOSSI Administration Sodium Chloride 10 ml 11/04/21 02:03 Sodium Chloride 0.9% 10 Ml Flush Syringe IV PRN PRN LINE FLUSH Sodium Chloride 10 ml 11/10/21 09:57 11/17/21 20:47 Sodium Chloride 0.9% 50 Ml Ivpb IV 10 ml PRN PRN Administration FLUSH Sucralfate 1 gm 11/18/21 16:30 11/23/21 21:09 Sucralfate 1 Gm/10 Ml Oral Liqd PO 1 gm ACHS YOSSI Administration Nutrition/Malnutrition Assess - Dietary Evaluation Nutrition/Malnutrition Findings: Nutrition Notes Start: 11/04/21 17:16 Freq: Status: Active Protocol: Document 11/20/21 15:54 ISABELL (Rec: 11/20/21 16:31 ISABELL [id number]) Nutrition Notes Initial or Follow up Reassessment Current Diagnosis Decubitus(Pressure Ulcer), Diabetes,Sepsis,Hypertension, Respiratory Failure Other Pertinent Diagnosis Septic shock, Bilateral Pneumonia, Lower Extremity Cellulitis. Current Diet TF-Glucerna 1.2 Tamir @ 42 ml/hr (since D 11/20). Labs/Tests 11/20: K 3.5, Cl 108.9, BUN 37 , Glu 117. Pertinent Medications 11/20: D5w 1000 ml @ 75 ml/hr, others nutritionally unremarkable. Height 5 ft Weight 62.4 kg [place] Body Weight (kg) 45.45 BMI 26.9 Weight change and time frame No body weight change reported . Weight Status Appropriate Subjective/Other Information RD consult for routine F/U on TF resume. Pt continues on mechanical ventilation. MD indication to Resume TF. Percent of energy/protein needs met: Prescribed Glucerna 1.2 Tamir @ 42 ml/hr provides for energy/ protein needs (1,208 Kcal/60 g ) during LOS, 100% Kcal; 81% AA. Burn Absent Trauma Absent GI Symptoms Diarrhea Difficulty In Swallowing,Chewing Food Allergy No Skin Integrity/Comment Lower Extremities Pressure Ulcer. Current % PO Other Minimum of two criteria No #1 Nutrition Diagnosis Inadequate oral intake Comments: Pt continues on mechanical ventilation. MD indication to Resume TF. Diagnosis Progress(for reassessment Continues documentation) Is patient on ventilator? Yes Is Patient Ambulatory and/or Out of Bed No REE-([facility]-confined to bed) [id number] Calculation Used for Recommendations [facility] Additional Notes Protein: 1.2-2 g/Kg; 75-125 g/ day. Fluids: 1 ml/Kcal, or as per MD. Nutrition Intervention Nutrition Support: Start Glucerna 1.2 Tamir @ 42 ml /hr. Flush: 70 ml water Q 4 hr, or as per MD. Kcal 1,208 Protein (gm) 60 Carbohydrates (gm) 115 Fat (gm) 60 Fluid (mL) 810 Fiber (gm) 16 % RDI: 100% Kcal; 81% AA. Goal #1 Provide at least 75% of energy /protein needs through Enteral Feeding during LOS. Goal #2 Maintain body weight within +/ -3% of admission body weight during LOS. Follow-Up By: 11/24/21 Additional Comments Continue monitoring TF tolerance and BM.
--- NOTE | 2021-11-23 13:55 | Progress Note ---
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 - await tracheostomy decision by family - continue daily SAT and SBT assessment as tolerated meanwhile - prn Levophed for target MAP > 65 mmHg - continue care as below otherwise; - continue to wean supplemental oxygen for target O2 sat's > 90% acutely - VAP bundle addressed - continue lung protective strategies - continue bronchodilators with pulmonary hygiene per RT - wean per pulmonary driven protocols otherwise - avoid nephrotoxins, renally dose all medications - continue accuchecks with glycemic control per SSI (While critically ill target blood glucose of 140-180 mg/dL; avoid hypoglycemia) - sedation prn for target RASS 0 to -1 - antibiotics per ID recommendations - continue to avoid benzodiazepine's, reduce the possibility of delirium - prn analgesia per CPOT score - Maintenance of sleep-wake cycle, avoid delirium - continue enteral nutritional support at goal rate as tolerated - G.I. & VTE prophylaxis - PT/OT/ROM exercises - continue mobility protocols for pressure ulcer prophylaxis - Monitor hemodynamics closely - continue other care per attending / other consultants - discharge planning ongoing concurrently COVID SPECIFIC INTERVENTIONS - COVID-19 PCR negative .... Re-evaluate in am & prn CONDITION: CRITICAL PROGNOSIS: GUARDED CODE STATUS: FULL CODE The high probability of a clinically significant, sudden or life-threatening deterioration of the [respiratory, cardiovascular & neurologic] system(s) required my full and direct attention, intervention and personal management. The aggregate critical care time was [36] minutes without overlap. Time includes spent on; [x] Data Review and interpretation [x] Patient assessment and monitoring of vital signs [x] Documentation [x] Medication orders and management Subjective Date of service: 11/23/21 Principal diagnosis: Septic shock; AHRF; Anemia; Pneumonia; L. pleural effusion; HFrEF; Pulm HTN Interval history: Patient is seen today for: Septic shock; Acute hypoxemic respiratory failure; Anemia; Bilateral pneumonia; Left pleural effusion; HFrEF 30-35%; Pulm HTN RVSP 49 Seen and examined at bedside; 24hour events reviewed; nursing and respiratory care staff consulted; no adverse overnight events reported to me; resting in bed; remains on MVS; again failed bedside SBT very quickly; awaiting surgery evaluation re: trach; no new issues otherwise Objective Vital Signs - 12hr 11/23/21 11/23/21 11/23/21 02:00 02:30 03:00 Temperature Pulse Rate 76 88 80 Pulse Rate [ From Monitor] Respiratory 15 15 16 Rate Blood Pressure 121/51 152/60 134/50 O2 Sat by Pulse 98 99 95 Oximetry 11/23/21 11/23/21 11/23/21 03:30 03:58 04:00 Temperature 98.6 F Pulse Rate 80 80 80 Pulse Rate [ From Monitor] Respiratory 21 17 Rate Blood Pressure 131/52 136/53 O2 Sat by Pulse 93 95 95 Oximetry 11/23/21 11/23/21 11/23/21 04:30 05:00 05:30 Temperature Pulse Rate 80 97 H 89 Pulse Rate [ From Monitor] Respiratory 15 20 18 Rate Blood Pressure 134/57 152/62 138/51 O2 Sat by Pulse 95 96 97 Oximetry 11/23/21 11/23/21 11/23/21 06:00 06:30 07:00 Temperature Pulse Rate 85 84 85 Pulse Rate [ From Monitor] Respiratory 12 13 14 Rate Blood Pressure 130/53 127/52 129/54 O2 Sat by Pulse 99 99 100 Oximetry 11/23/21 11/23/21 11/23/21 07:30 07:36 08:00 Temperature 98.3 F Pulse Rate 85 85 Pulse Rate [ From Monitor] Respiratory 15 12 Rate Blood Pressure 133/55 131/52 O2 Sat by Pulse 99 99 Oximetry 11/23/21 11/23/21 11/23/21 08:30 08:39 09:00 Temperature Pulse Rate 85 86 Pulse Rate [ 85 From Monitor] Respiratory 12 12 9 L Rate Blood Pressure 127/52 131/55 O2 Sat by Pulse 100 100 100 Oximetry 11/23/21 11/23/21 11/23/21 09:08 09:30 10:00 Temperature Pulse Rate 87 86 88 Pulse Rate [ From Monitor] Respiratory 13 15 Rate Blood Pressure 131/55 127/49 129/50 O2 Sat by Pulse 100 92 93 Oximetry 11/23/21 11/23/21 11/23/21 10:30 11:00 11:30 Temperature Pulse Rate 81 80 80 Pulse Rate [ From Monitor] Respiratory 18 17 20 Rate Blood Pressure 108/40 111/40 109/47 O2 Sat by Pulse 93 98 97 Oximetry 11/23/21 11/23/21 11/23/21 12:00 12:15 12:30 Temperature 100.2 F H Pulse Rate 79 78 Pulse Rate [ From Monitor] Respiratory 15 10 L Rate Blood Pressure 112/46 105/42 O2 Sat by Pulse 98 98 Oximetry 11/23/21 11/23/21 13:00 13:30 Temperature Pulse Rate 78 80 Pulse Rate [ From Monitor] Respiratory 15 17 Rate Blood Pressure 115/48 119/42 O2 Sat by Pulse 98 98 Oximetry Constitutional: no acute distress, other (ETT to MVS, frail elderly woman with mildly increased respiratory effort at rest) Eyes: non-icteric ENT: oropharynx moist, oropharyngeal exudate pre (clear frothy), other (ETT 23 cm ELIZABETH) Neck: supple, no lymphadenopathy, no JVD Effort: normal, mildly labored Ascultation: Bilateral: diminished breath sounds, rhonchi (bases) Percussion: Bilateral: not dull Cardiovascular: regular rate and rhythm, other (S1,S2) Gastrointestinal: normoactive bowel sounds, soft, non-tender, non-distended (protuberant) Integumentary: normal Extremities: no cyanosis, pink and warm, pulses normal, edema (upper etremities) Neurologic: non-focal exam (grossly), pupils equal and round, CN II-XII normal, other (sedated) Psychiatric: mood appropriate, affect normal CBC and BMP: 11/23/21 04:38 11/23/21 04:38 ABG, PT/INR, D-dimer: ABG ABG pH 7.449 pH Units (7.350-7.450) 11/21/21 16:00 ABG pCO2 32.1 mm Hg 11/21/21 16:00 ABG pO2 114.2 mm Hg (80.0-90.0) H 11/21/21 16:00 ABG O2 Saturation 98.3 % (95.0-99.0) 11/21/21 16:00 PT/INR, D-dimer PT 18.6 Sec. (12.2-14.9) H 11/03/21 22:32 INR 1.40 (0.87-1.13) H 11/03/21 22:32 D-Dimer 2655.00 ng/mlDDU (0-234) H 11/11/21 04:28 Abnormal lab findings: Abnormal Labs 11/03/21 11/03/21 11/03/21 22:32 22:32 22:32 WBC 29.3 H RBC 2.93 L Hgb 6.1 L Hct 21.9 L MCV 75 L MCH 21 L MCHC 28 L RDW 19.7 H Plt Count Seg Neuts % (Manual) 97.0 H Lymphocytes % (Manual) 3.0 L Seg Neutrophils # Man 28.4 H Lymphocytes # (Manual) 0.9 L Monocytes # (Manual) PT 18.6 H INR 1.40 H D-Dimer ABG pH ABG pO2 ABG HCO3 ABG O2 Saturation ABG Base Excess ABG Hemoglobin Oxyhemoglobin Sodium Potassium Chloride Carbon Dioxide 20 L BUN 33 H Glucose 119 H POC Glucose Lactic Acid Calcium 8.3 L Phosphorus Magnesium AST ALT Alkaline Phosphatase Lactate Dehydrogenase Troponin T 0.035 H C-Reactive Protein NT-Pro-B Natriuret Pep Total Protein Albumin LDL Cholesterol Direct 34 L Vitamin B12 Crossmatch 11/03/21 11/03/21 11/03/21 22:32 22:32 23:57 WBC RBC Hgb Hct MCV MCH MCHC RDW Plt Count Seg Neuts % (Manual) Lymphocytes % (Manual) Seg Neutrophils # Man Lymphocytes # (Manual) Monocytes # (Manual) PT INR D-Dimer ABG pH ABG pO2 ABG HCO3 ABG O2 Saturation ABG Base Excess ABG Hemoglobin Oxyhemoglobin Sodium Potassium Chloride Carbon Dioxide BUN Glucose POC Glucose Lactic Acid 3.70 H* Calcium Phosphorus Magnesium AST ALT Alkaline Phosphatase 139 H Lactate Dehydrogenase Troponin T C-Reactive Protein NT-Pro-B Natriuret Pep 7895 H Total Protein Albumin 3.5 L LDL Cholesterol Direct Vitamin B12 Crossmatch See Detail 11/04/21 11/04/21 11/05/21 00:59 13:58 00:51 WBC 27.9 H RBC 3.28 L Hgb 7.3 L Hct 25.5 L MCV 78 L MCH 22 L MCHC 29 L RDW 19.1 H Plt Count Seg Neuts % (Manual) 96.0 H Lymphocytes % (Manual) 2.0 L Seg Neutrophils # Man 26.8 H Lymphocytes # (Manual) 0.6 L Monocytes # (Manual) PT INR D-Dimer ABG pH ABG pO2 ABG HCO3 ABG O2 Saturation ABG Base Excess ABG Hemoglobin Oxyhemoglobin Sodium Potassium Chloride Carbon Dioxide BUN Glucose POC Glucose Lactic Acid Calcium Phosphorus Magnesium AST ALT Alkaline Phosphatase Lactate Dehydrogenase Troponin T 0.051 H D 0.032 H D C-Reactive Protein NT-Pro-B Natriuret Pep Total Protein Albumin LDL Cholesterol Direct Vitamin B12 Crossmatch 11/05/21 11/05/21 11/05/21 06:11 06:11 06:11 WBC 31.8 H RBC 3.57 L Hgb 8.0 L Hct 27.7 L MCV 78 L MCH 22 L MCHC 29 L RDW 19.2 H Plt Count Seg Neuts % (Manual) 91.0 H Lymphocytes % (Manual) 4.5 L Seg Neutrophils # Man 28.9 H Lymphocytes # (Manual) Monocytes # (Manual) 1.1 H PT INR D-Dimer 1494.53 H ABG pH ABG pO2 ABG HCO3 ABG O2 Saturation ABG Base Excess ABG Hemoglobin Oxyhemoglobin Sodium Potassium Chloride Carbon Dioxide 19 L BUN 42 H Glucose 115 H POC Glucose Lactic Acid Calcium Phosphorus Magnesium AST 43 H ALT Alkaline Phosphatase Lactate Dehydrogenase 187 H Troponin T C-Reactive Protein 22.20 H NT-Pro-B Natriuret Pep Total Protein 6.0 L Albumin 3.2 L LDL Cholesterol Direct Vitamin B12 Crossmatch 11/05/21 11/05/21 11/06/21 06:11 12:15 00:30 WBC RBC Hgb Hct MCV MCH MCHC RDW Plt Count Seg Neuts % (Manual) Lymphocytes % (Manual) Seg Neutrophils # Man Lymphocytes # (Manual) Monocytes # (Manual) PT INR D-Dimer ABG pH ABG pO2 ABG HCO3 ABG O2 Saturation ABG Base Excess ABG Hemoglobin Oxyhemoglobin Sodium Potassium Chloride Carbon Dioxide BUN Glucose POC Glucose 113 H 69 L Lactic Acid Calcium Phosphorus Magnesium AST ALT Alkaline Phosphatase Lactate Dehydrogenase Troponin T 0.033 H C-Reactive Protein NT-Pro-B Natriuret Pep Total Protein Albumin LDL Cholesterol Direct Vitamin B12 Crossmatch 11/06/21 11/06/21 11/06/21 05:50 15:50 15:50 WBC 25.5 H RBC 3.62 L Hgb 8.0 L Hct 27.5 L MCV 76 L MCH 22 L MCHC 29 L RDW 19.6 H Plt Count Seg Neuts % (Manual) 92.0 H Lymphocytes % (Manual) 5.0 L Seg Neutrophils # Man 23.5 H Lymphocytes # (Manual) Monocytes # (Manual) PT INR D-Dimer ABG pH 7.305 L ABG pO2 ABG HCO3 15.8 L ABG O2 Saturation ABG Base Excess -9.6 L ABG Hemoglobin 8.6 L Oxyhemoglobin 94.6 L Sodium Potassium Chloride 113.9 H Carbon Dioxide 17 L BUN 56 H Glucose 114 H POC Glucose Lactic Acid Calcium 7.9 L Phosphorus Magnesium AST 1410 H ALT 934 H Alkaline Phosphatase 142 H Lactate Dehydrogenase Troponin T C-Reactive Protein NT-Pro-B Natriuret Pep Total Protein 5.0 L Albumin 2.6 L LDL Cholesterol Direct Vitamin B12 Crossmatch 11/07/21 11/07/21 11/07/21 03:30 04:50 08:07 WBC RBC Hgb Hct MCV MCH MCHC RDW Plt Count Seg Neuts % (Manual) Lymphocytes % (Manual) Seg Neutrophils # Man Lymphocytes # (Manual) Monocytes # (Manual) PT INR D-Dimer ABG pH ABG pO2 296.9 H ABG HCO3 18.1 L ABG O2 Saturation 99.5 H ABG Base Excess -5.9 L ABG Hemoglobin 7.6 L Oxyhemoglobin Sodium Potassium Chloride Carbon Dioxide BUN Glucose POC Glucose 106 H 108 H Lactic Acid Calcium Phosphorus Magnesium AST ALT Alkaline Phosphatase Lactate Dehydrogenase Troponin T C-Reactive Protein NT-Pro-B Natriuret Pep Total Protein Albumin LDL Cholesterol Direct Vitamin B12 Crossmatch 11/08/21 11/08/21 11/08/21 03:10 18:05 23:43 WBC RBC Hgb Hct MCV MCH MCHC RDW Plt Count Seg Neuts % (Manual) Lymphocytes % (Manual) Seg Neutrophils # Man Lymphocytes # (Manual) Monocytes # (Manual) PT INR D-Dimer ABG pH ABG pO2 127.4 H ABG HCO3 ABG O2 Saturation ABG Base Excess -3.4 L ABG Hemoglobin 7.4 L Oxyhemoglobin Sodium Potassium Chloride Carbon Dioxide BUN Glucose POC Glucose 113 H 141 H Lactic Acid Calcium Phosphorus Magnesium AST ALT Alkaline Phosphatase Lactate Dehydrogenase Troponin T C-Reactive Protein NT-Pro-B Natriuret Pep Total Protein Albumin LDL Cholesterol Direct Vitamin B12 Crossmatch 11/08/21 11/08/21 11/09/21 Unknown Unknown 02:00 WBC 14.5 H RBC 3.35 L Hgb 7.5 L 8.1 L Hct 25.4 L 27.6 L MCV 76 L 76 L MCH 23 L 22 L MCHC RDW 19.9 H 19.9 H Plt Count Seg Neuts % (Manual) Lymphocytes % (Manual) Seg Neutrophils # Man Lymphocytes # (Manual) Monocytes # (Manual) PT INR D-Dimer ABG pH ABG pO2 ABG HCO3 ABG O2 Saturation ABG Base Excess ABG Hemoglobin Oxyhemoglobin Sodium 154 H D Potassium 3.3 L Chloride 120.7 H Carbon Dioxide 20 L BUN 38 H Glucose POC Glucose Lactic Acid Calcium 8.3 L Phosphorus Magnesium AST ALT Alkaline Phosphatase Lactate Dehydrogenase Troponin T C-Reactive Protein NT-Pro-B Natriuret Pep Total Protein Albumin LDL Cholesterol Direct Vitamin B12 Crossmatch 11/09/21 11/09/21 11/09/21 02:00 02:31 05:12 WBC RBC Hgb Hct MCV MCH MCHC RDW Plt Count Seg Neuts % (Manual) Lymphocytes % (Manual) Seg Neutrophils # Man Lymphocytes # (Manual) Monocytes # (Manual) PT INR D-Dimer ABG pH 7.479 H ABG pO2 121.3 H ABG HCO3 ABG O2 Saturation ABG Base Excess ABG Hemoglobin 7.3 L Oxyhemoglobin Sodium Potassium Chloride 112.5 H Carbon Dioxide BUN 33 H Glucose 161 H POC Glucose 135 H Lactic Acid Calcium Phosphorus Magnesium AST 251 H ALT 481 H Alkaline Phosphatase Lactate Dehydrogenase Troponin T C-Reactive Protein NT-Pro-B Natriuret Pep Total Protein 5.0 L Albumin 2.8 L LDL Cholesterol Direct Vitamin B12 Crossmatch 11/09/21 11/09/21 11/09/21 11:33 16:32 23:28 WBC RBC Hgb Hct MCV MCH MCHC RDW Plt Count Seg Neuts % (Manual) Lymphocytes % (Manual) Seg Neutrophils # Man Lymphocytes # (Manual) Monocytes # (Manual) PT INR D-Dimer ABG pH ABG pO2 ABG HCO3 ABG O2 Saturation ABG Base Excess ABG Hemoglobin Oxyhemoglobin Sodium Potassium Chloride Carbon Dioxide BUN Glucose POC Glucose 132 H 133 H 143 H Lactic Acid Calcium Phosphorus Magnesium AST ALT Alkaline Phosphatase Lactate Dehydrogenase Troponin T C-Reactive Protein NT-Pro-B Natriuret Pep Total Protein Albumin LDL Cholesterol Direct Vitamin B12 Crossmatch 11/10/21 11/10/21 11/10/21 04:00 04:00 05:35 WBC 16.0 H RBC 3.61 L Hgb 8.0 L Hct 27.1 L MCV 75 L MCH 22 L MCHC RDW 20.4 H Plt Count Seg Neuts % (Manual) Lymphocytes % (Manual) Seg Neutrophils # Man Lymphocytes # (Manual) Monocytes # (Manual) PT INR D-Dimer ABG pH ABG pO2 ABG HCO3 ABG O2 Saturation ABG Base Excess ABG Hemoglobin Oxyhemoglobin Sodium 149 H Potassium Chloride 114.1 H Carbon Dioxide BUN 31 H Glucose 148 H POC Glucose 132 H Lactic Acid Calcium 8.2 L Phosphorus Magnesium AST ALT Alkaline Phosphatase Lactate Dehydrogenase Troponin T C-Reactive Protein NT-Pro-B Natriuret Pep Total Protein Albumin LDL Cholesterol Direct Vitamin B12 Crossmatch 11/10/21 11/10/21 11/10/21 11:31 14:08 15:35 WBC RBC Hgb Hct MCV MCH MCHC RDW Plt Count Seg Neuts % (Manual) Lymphocytes % (Manual) Seg Neutrophils # Man Lymphocytes # (Manual) Monocytes # (Manual) PT INR D-Dimer ABG pH ABG pO2 126.6 H ABG HCO3 ABG O2 Saturation ABG Base Excess ABG Hemoglobin 7.4 L Oxyhemoglobin Sodium Potassium Chloride Carbon Dioxide BUN Glucose POC Glucose 147 H Lactic Acid Calcium Phosphorus Magnesium AST ALT Alkaline Phosphatase Lactate Dehydrogenase Troponin T C-Reactive Protein NT-Pro-B Natriuret Pep Total Protein Albumin LDL Cholesterol Direct Vitamin B12 1823 H Crossmatch 11/10/21 11/11/21 11/11/21 17:53 00:55 04:28 WBC RBC Hgb Hct MCV MCH MCHC RDW Plt Count Seg Neuts % (Manual) Lymphocytes % (Manual) Seg Neutrophils # Man Lymphocytes # (Manual) Monocytes # (Manual) PT INR D-Dimer ABG pH ABG pO2 ABG HCO3 ABG O2 Saturation ABG Base Excess ABG Hemoglobin Oxyhemoglobin Sodium 149 H Potassium Chloride 112.2 H Carbon Dioxide BUN 34 H Glucose 148 H POC Glucose 140 H 145 H Lactic Acid Calcium 7.9 L Phosphorus Magnesium AST 53 H ALT 203 H Alkaline Phosphatase Lactate Dehydrogenase Troponin T C-Reactive Protein NT-Pro-B Natriuret Pep Total Protein 4.9 L Albumin 2.6 L LDL Cholesterol Direct Vitamin B12 Crossmatch 11/11/21 11/11/21 11/11/21 04:28 04:28 05:28 WBC 20.9 H RBC 3.47 L Hgb 7.5 L Hct 26.0 L MCV 75 L MCH 22 L MCHC 29 L RDW 21.6 H Plt Count 132 L Seg Neuts % (Manual) Lymphocytes % (Manual) Seg Neutrophils # Man Lymphocytes # (Manual) Monocytes # (Manual) PT INR D-Dimer 2655.00 H ABG pH ABG pO2 ABG HCO3 ABG O2 Saturation ABG Base Excess ABG Hemoglobin Oxyhemoglobin Sodium Potassium Chloride Carbon Dioxide BUN Glucose POC Glucose 154 H Lactic Acid Calcium Phosphorus Magnesium AST ALT Alkaline Phosphatase Lactate Dehydrogenase Troponin T C-Reactive Protein NT-Pro-B Natriuret Pep Total Protein Albumin LDL Cholesterol Direct Vitamin B12 Crossmatch 11/11/21 11/11/21 11/12/21 12:38 18:13 00:14 WBC RBC Hgb Hct MCV MCH MCHC RDW Plt Count Seg Neuts % (Manual) Lymphocytes % (Manual) Seg Neutrophils # Man Lymphocytes # (Manual) Monocytes # (Manual) PT INR D-Dimer ABG pH ABG pO2 ABG HCO3 ABG O2 Saturation ABG Base Excess ABG Hemoglobin Oxyhemoglobin Sodium Potassium Chloride Carbon Dioxide BUN Glucose POC Glucose 137 H 108 H 137 H Lactic Acid Calcium Phosphorus Magnesium AST ALT Alkaline Phosphatase Lactate Dehydrogenase Troponin T C-Reactive Protein NT-Pro-B Natriuret Pep Total Protein Albumin LDL Cholesterol Direct Vitamin B12 Crossmatch 11/12/21 11/12/21 11/12/21 05:40 06:24 11:12 WBC RBC Hgb Hct MCV MCH MCHC RDW Plt Count Seg Neuts % (Manual) Lymphocytes % (Manual) Seg Neutrophils # Man Lymphocytes # (Manual) Monocytes # (Manual) PT INR D-Dimer ABG pH 7.586 H ABG pO2 150.6 H ABG HCO3 27.2 H ABG O2 Saturation 99.1 H ABG Base Excess 5.2 H ABG Hemoglobin 7.5 L Oxyhemoglobin Sodium Potassium Chloride Carbon Dioxide BUN Glucose POC Glucose 132 H 140 H Lactic Acid Calcium Phosphorus Magnesium AST ALT Alkaline Phosphatase Lactate Dehydrogenase Troponin T C-Reactive Protein NT-Pro-B Natriuret Pep Total Protein Albumin LDL Cholesterol Direct Vitamin B12 Crossmatch 11/12/21 11/12/21 11/12/21 14:50 14:50 17:13 WBC 19.8 H RBC 3.27 L Hgb 7.1 L Hct 24.5 L MCV 75 L MCH 22 L MCHC 29 L RDW 22.3 H Plt Count Seg Neuts % (Manual) Lymphocytes % (Manual) Seg Neutrophils # Man Lymphocytes # (Manual) Monocytes # (Manual) PT INR D-Dimer ABG pH ABG pO2 ABG HCO3 ABG O2 Saturation ABG Base Excess ABG Hemoglobin Oxyhemoglobin Sodium 150 H Potassium 3.3 L Chloride 112.0 H Carbon Dioxide BUN 40 H Glucose 151 H POC Glucose 121 H Lactic Acid Calcium 7.4 L Phosphorus 1.70 L Magnesium 1.40 L AST ALT Alkaline Phosphatase Lactate Dehydrogenase Troponin T C-Reactive Protein NT-Pro-B Natriuret Pep Total Protein Albumin LDL Cholesterol Direct Vitamin B12 Crossmatch 11/12/21 11/13/21 11/13/21 23:19 05:34 06:30 WBC RBC Hgb Hct MCV MCH MCHC RDW Plt Count Seg Neuts % (Manual) Lymphocytes % (Manual) Seg Neutrophils # Man Lymphocytes # (Manual) Monocytes # (Manual) PT INR D-Dimer ABG pH ABG pO2 ABG HCO3 ABG O2 Saturation ABG Base Excess ABG Hemoglobin Oxyhemoglobin Sodium 149 H Potassium Chloride 60.0 L Carbon Dioxide BUN 40 H Glucose 146 H POC Glucose 113 H 132 H Lactic Acid Calcium 7.3 L Phosphorus Magnesium 2.40 H AST ALT 72 H Alkaline Phosphatase Lactate Dehydrogenase Troponin T C-Reactive Protein NT-Pro-B Natriuret Pep Total Protein 5.2 L Albumin 2.2 L LDL Cholesterol Direct Vitamin B12 Crossmatch 11/13/21 11/13/21 11/13/21 06:30 08:30 11:19 WBC 21.2 H RBC 3.12 L Hgb 6.8 L Hct 23.2 L MCV 74 L MCH 22 L MCHC 29 L RDW 22.2 H Plt Count 135 L Seg Neuts % (Manual) Lymphocytes % (Manual) Seg Neutrophils # Man Lymphocytes # (Manual) Monocytes # (Manual) PT INR D-Dimer ABG pH ABG pO2 ABG HCO3 ABG O2 Saturation ABG Base Excess ABG Hemoglobin Oxyhemoglobin Sodium Potassium Chloride Carbon Dioxide BUN Glucose POC Glucose 136 H Lactic Acid Calcium Phosphorus Magnesium AST ALT Alkaline Phosphatase Lactate Dehydrogenase Troponin T C-Reactive Protein NT-Pro-B Natriuret Pep Total Protein Albumin LDL Cholesterol Direct Vitamin B12 Crossmatch See Detail 11/13/21 11/14/21 11/14/21 18:21 00:01 04:46 WBC 20.0 H RBC 3.41 L Hgb 7.9 L Hct 26.8 L MCV MCH 23 L MCHC 29 L RDW 24.0 H Plt Count Seg Neuts % (Manual) Lymphocytes % (Manual) Seg Neutrophils # Man Lymphocytes # (Manual) Monocytes # (Manual) PT INR D-Dimer ABG pH ABG pO2 ABG HCO3 ABG O2 Saturation ABG Base Excess ABG Hemoglobin Oxyhemoglobin Sodium Potassium Chloride Carbon Dioxide BUN Glucose POC Glucose 149 H 141 H Lactic Acid Calcium Phosphorus Magnesium AST ALT Alkaline Phosphatase Lactate Dehydrogenase Troponin T C-Reactive Protein NT-Pro-B Natriuret Pep Total Protein Albumin LDL Cholesterol Direct Vitamin B12 Crossmatch 11/14/21 11/14/21 11/14/21 04:46 05:10 11:10 WBC RBC Hgb Hct MCV MCH MCHC RDW Plt Count Seg Neuts % (Manual) Lymphocytes % (Manual) Seg Neutrophils # Man Lymphocytes # (Manual) Monocytes # (Manual) PT INR D-Dimer ABG pH ABG pO2 ABG HCO3 ABG O2 Saturation ABG Base Excess ABG Hemoglobin Oxyhemoglobin Sodium 148 H Potassium Chloride 113.1 H Carbon Dioxide BUN 43 H Glucose 140 H POC Glucose 132 H 133 H Lactic Acid Calcium 7.5 L Phosphorus Magnesium AST ALT Alkaline Phosphatase Lactate Dehydrogenase Troponin T C-Reactive Protein NT-Pro-B Natriuret Pep Total Protein Albumin LDL Cholesterol Direct Vitamin B12 Crossmatch 11/14/21 11/14/21 11/14/21 16:14 17:48 23:23 WBC RBC Hgb Hct MCV MCH MCHC RDW Plt Count Seg Neuts % (Manual) Lymphocytes % (Manual) Seg Neutrophils # Man Lymphocytes # (Manual) Monocytes # (Manual) PT INR D-Dimer ABG pH ABG pO2 ABG HCO3 28.0 H ABG O2 Saturation ABG Base Excess 3.1 H ABG Hemoglobin 5.8 L Oxyhemoglobin 94.8 L Sodium Potassium Chloride Carbon Dioxide BUN Glucose POC Glucose 130 H 136 H Lactic Acid Calcium Phosphorus Magnesium AST ALT Alkaline Phosphatase Lactate Dehydrogenase Troponin T C-Reactive Protein NT-Pro-B Natriuret Pep Total Protein Albumin LDL Cholesterol Direct Vitamin B12 Crossmatch 11/15/21 11/15/21 11/15/21 05:20 05:50 05:50 WBC 19.9 H RBC 3.50 L Hgb 8.2 L Hct 27.9 L MCV MCH 23 L MCHC 29 L RDW 24.9 H Plt Count Seg Neuts % (Manual) Lymphocytes % (Manual) Seg Neutrophils # Man Lymphocytes # (Manual) Monocytes # (Manual) PT INR D-Dimer ABG pH ABG pO2 ABG HCO3 ABG O2 Saturation ABG Base Excess ABG Hemoglobin Oxyhemoglobin Sodium 149 H Potassium Chloride 112.0 H Carbon Dioxide BUN 48 H Glucose 152 H POC Glucose 137 H Lactic Acid Calcium 7.9 L Phosphorus Magnesium AST ALT Alkaline Phosphatase Lactate Dehydrogenase Troponin T C-Reactive Protein NT-Pro-B Natriuret Pep Total Protein Albumin LDL Cholesterol Direct Vitamin B12 Crossmatch 11/15/21 11/15/21 11/15/21 12:12 17:07 23:24 WBC RBC Hgb Hct MCV MCH MCHC RDW Plt Count Seg Neuts % (Manual) Lymphocytes % (Manual) Seg Neutrophils # Man Lymphocytes # (Manual) Monocytes # (Manual) PT INR D-Dimer ABG pH ABG pO2 ABG HCO3 ABG O2 Saturation ABG Base Excess ABG Hemoglobin Oxyhemoglobin Sodium Potassium Chloride Carbon Dioxide BUN Glucose POC Glucose 114 H 135 H 123 H Lactic Acid Calcium Phosphorus Magnesium AST ALT Alkaline Phosphatase Lactate Dehydrogenase Troponin T C-Reactive Protein NT-Pro-B Natriuret Pep Total Protein Albumin LDL Cholesterol Direct Vitamin B12 Crossmatch 11/16/21 11/16/21 11/16/21 05:21 10:00 10:00 WBC 21.7 H RBC 2.57 L Hgb 6.0 L Hct 20.2 L D MCV MCH 24 L MCHC RDW 26.3 H Plt Count Seg Neuts % (Manual) Lymphocytes % (Manual) Seg Neutrophils # Man Lymphocytes # (Manual) Monocytes # (Manual) PT INR D-Dimer ABG pH ABG pO2 ABG HCO3 ABG O2 Saturation ABG Base Excess ABG Hemoglobin Oxyhemoglobin Sodium 153 H Potassium Chloride 114.9 H Carbon Dioxide BUN 74 H Glucose 155 H POC Glucose 127 H Lactic Acid Calcium 8.1 L Phosphorus Magnesium AST ALT Alkaline Phosphatase Lactate Dehydrogenase Troponin T C-Reactive Protein NT-Pro-B Natriuret Pep Total Protein Albumin LDL Cholesterol Direct Vitamin B12 Crossmatch 11/16/21 11/16/21 11/16/21 11:34 14:00 15:25 WBC 17.2 H RBC 2.08 L Hgb 4.7 L* Hct 16.2 L* MCV 78 L MCH 23 L MCHC 29 L RDW 26.0 H Plt Count Seg Neuts % (Manual) 87.0 H Lymphocytes % (Manual) 8.0 L Seg Neutrophils # Man 15.0 H Lymphocytes # (Manual) Monocytes # (Manual) 0.9 H PT INR D-Dimer ABG pH ABG pO2 ABG HCO3 ABG O2 Saturation ABG Base Excess ABG Hemoglobin Oxyhemoglobin Sodium Potassium Chloride Carbon Dioxide BUN Glucose POC Glucose 131 H Lactic Acid Calcium Phosphorus Magnesium AST ALT Alkaline Phosphatase Lactate Dehydrogenase Troponin T C-Reactive Protein NT-Pro-B Natriuret Pep Total Protein Albumin LDL Cholesterol Direct Vitamin B12 Crossmatch See Detail 11/16/21 11/16/21 11/16/21 15:25 17:21 22:43 WBC RBC Hgb 8.6 L D Hct 27.7 L D MCV MCH MCHC RDW Plt Count Seg Neuts % (Manual) Lymphocytes % (Manual) Seg Neutrophils # Man Lymphocytes # (Manual) Monocytes # (Manual) PT INR D-Dimer ABG pH ABG pO2 ABG HCO3 ABG O2 Saturation ABG Base Excess ABG Hemoglobin Oxyhemoglobin Sodium 148 H Potassium Chloride 113.2 H Carbon Dioxide BUN 84 H Glucose 164 H POC Glucose 124 H Lactic Acid Calcium 7.6 L Phosphorus Magnesium AST ALT Alkaline Phosphatase Lactate Dehydrogenase Troponin T C-Reactive Protein NT-Pro-B Natriuret Pep Total Protein Albumin LDL Cholesterol Direct Vitamin B12 Crossmatch 11/16/21 11/17/21 11/17/21 23:07 05:33 05:56 WBC 25.1 H RBC 3.47 L Hgb 8.7 L Hct 28.5 L MCV MCH 25 L MCHC RDW 22.3 H Plt Count Seg Neuts % (Manual) Lymphocytes % (Manual) Seg Neutrophils # Man Lymphocytes # (Manual) Monocytes # (Manual) PT INR D-Dimer ABG pH ABG pO2 ABG HCO3 ABG O2 Saturation ABG Base Excess ABG Hemoglobin Oxyhemoglobin Sodium Potassium Chloride Carbon Dioxide BUN Glucose POC Glucose 128 H 133 H Lactic Acid Calcium Phosphorus Magnesium AST ALT Alkaline Phosphatase Lactate Dehydrogenase Troponin T C-Reactive Protein NT-Pro-B Natriuret Pep Total Protein Albumin LDL Cholesterol Direct Vitamin B12 Crossmatch 11/17/21 11/17/21 11/17/21 05:56 11:00 11:55 WBC RBC Hgb 8.3 L Hct 26.9 L MCV MCH MCHC RDW Plt Count Seg Neuts % (Manual) Lymphocytes % (Manual) Seg Neutrophils # Man Lymphocytes # (Manual) Monocytes # (Manual) PT INR D-Dimer ABG pH ABG pO2 ABG HCO3 ABG O2 Saturation ABG Base Excess ABG Hemoglobin Oxyhemoglobin Sodium 151 H Potassium Chloride 113.6 H Carbon Dioxide BUN 85 H Glucose 132 H POC Glucose 121 H Lactic Acid Calcium 7.8 L Phosphorus Magnesium AST ALT Alkaline Phosphatase Lactate Dehydrogenase Troponin T C-Reactive Protein NT-Pro-B Natriuret Pep Total Protein 5.1 L Albumin 2.2 L LDL Cholesterol Direct Vitamin B12 Crossmatch 11/17/21 11/17/21 11/18/21 18:04 18:55 00:26 WBC RBC Hgb 7.5 L 7.1 L Hct 24.8 L 23.6 L MCV MCH MCHC RDW Plt Count Seg Neuts % (Manual) Lymphocytes % (Manual) Seg Neutrophils # Man Lymphocytes # (Manual) Monocytes # (Manual) PT INR D-Dimer ABG pH ABG pO2 ABG HCO3 ABG O2 Saturation ABG Base Excess ABG Hemoglobin Oxyhemoglobin Sodium Potassium Chloride Carbon Dioxide BUN Glucose POC Glucose 144 H Lactic Acid Calcium Phosphorus Magnesium AST ALT Alkaline Phosphatase Lactate Dehydrogenase Troponin T C-Reactive Protein NT-Pro-B Natriuret Pep Total Protein Albumin LDL Cholesterol Direct Vitamin B12 Crossmatch 11/18/21 11/18/21 11/18/21 00:43 05:10 05:10 WBC 12.5 H RBC 2.39 L Hgb 6.1 L Hct 20.2 L MCV MCH 25 L MCHC RDW 23.2 H Plt Count Seg Neuts % (Manual) Lymphocytes % (Manual) Seg Neutrophils # Man Lymphocytes # (Manual) Monocytes # (Manual) PT INR D-Dimer ABG pH ABG pO2 ABG HCO3 ABG O2 Saturation ABG Base Excess ABG Hemoglobin Oxyhemoglobin Sodium 131 L D Potassium 2.9 L* D Chloride 97.8 L Carbon Dioxide BUN 58 H Glucose 665 H* POC Glucose 139 H Lactic Acid Calcium 7.0 L Phosphorus 2.20 L D Magnesium 1.50 L AST ALT Alkaline Phosphatase Lactate Dehydrogenase Troponin T C-Reactive Protein NT-Pro-B Natriuret Pep Total Protein Albumin LDL Cholesterol Direct Vitamin B12 Crossmatch 11/18/21 11/18/21 11/18/21 05:23 07:10 10:45 WBC RBC Hgb Hct MCV MCH MCHC RDW Plt Count Seg Neuts % (Manual) Lymphocytes % (Manual) Seg Neutrophils # Man Lymphocytes # (Manual) Monocytes # (Manual) PT INR D-Dimer ABG pH ABG pO2 ABG HCO3 ABG O2 Saturation ABG Base Excess ABG Hemoglobin Oxyhemoglobin Sodium 148 H D Potassium 3.1 L Chloride 111.9 H Carbon Dioxide BUN 63 H Glucose 141 H POC Glucose 124 H Lactic Acid Calcium 8.1 L D Phosphorus Magnesium AST ALT Alkaline Phosphatase Lactate Dehydrogenase Troponin T C-Reactive Protein NT-Pro-B Natriuret Pep Total Protein Albumin LDL Cholesterol Direct Vitamin B12 Crossmatch See Detail 11/18/21 11/19/21 11/19/21 11:57 00:19 04:55 WBC RBC 3.35 L Hgb 9.0 L 8.9 L Hct 28.3 L D 28.1 L MCV MCH 27 L MCHC RDW 20.3 H Plt Count Seg Neuts % (Manual) Lymphocytes % (Manual) Seg Neutrophils # Man Lymphocytes # (Manual) Monocytes # (Manual) PT INR D-Dimer ABG pH ABG pO2 ABG HCO3 ABG O2 Saturation ABG Base Excess ABG Hemoglobin Oxyhemoglobin Sodium Potassium Chloride Carbon Dioxide BUN Glucose POC Glucose 119 H Lactic Acid Calcium Phosphorus Magnesium AST ALT Alkaline Phosphatase Lactate Dehydrogenase Troponin T C-Reactive Protein NT-Pro-B Natriuret Pep Total Protein Albumin LDL Cholesterol Direct Vitamin B12 Crossmatch 11/19/21 11/19/21 11/20/21 04:55 05:42 00:55 WBC RBC Hgb 9.0 L Hct 28.6 L MCV MCH MCHC RDW Plt Count Seg Neuts % (Manual) Lymphocytes % (Manual) Seg Neutrophils # Man Lymphocytes # (Manual) Monocytes # (Manual) PT INR D-Dimer ABG pH ABG pO2 ABG HCO3 ABG O2 Saturation ABG Base Excess ABG Hemoglobin Oxyhemoglobin Sodium Potassium 3.5 L Chloride 108.6 H Carbon Dioxide BUN 47 H Glucose 207 H POC Glucose 63 L Lactic Acid Calcium 7.1 L Phosphorus Magnesium AST ALT Alkaline Phosphatase Lactate Dehydrogenase Troponin T C-Reactive Protein NT-Pro-B Natriuret Pep Total Protein Albumin LDL Cholesterol Direct Vitamin B12 Crossmatch 11/20/21 11/20/21 11/20/21 05:40 05:40 Unknown WBC RBC 3.40 L Hgb 9.1 L Hct 28.8 L MCV MCH 27 L MCHC RDW 20.7 H Plt Count Seg Neuts % (Manual) Lymphocytes % (Manual) Seg Neutrophils # Man Lymphocytes # (Manual) Monocytes # (Manual) PT INR D-Dimer ABG pH ABG pO2 ABG HCO3 ABG O2 Saturation ABG Base Excess -2.7 L ABG Hemoglobin 9.5 L Oxyhemoglobin 94.3 L Sodium Potassium 3.5 L Chloride 108.9 H Carbon Dioxide BUN 37 H Glucose 117 H POC Glucose Lactic Acid Calcium 7.5 L Phosphorus Magnesium AST ALT Alkaline Phosphatase Lactate Dehydrogenase Troponin T C-Reactive Protein NT-Pro-B Natriuret Pep Total Protein Albumin LDL Cholesterol Direct Vitamin B12 Crossmatch 11/21/21 11/21/21 11/21/21 04:30 04:30 16:00 WBC RBC 3.25 L Hgb 8.6 L Hct 28.1 L MCV MCH 26 L MCHC RDW 20.7 H Plt Count Seg Neuts % (Manual) Lymphocytes % (Manual) Seg Neutrophils # Man Lymphocytes # (Manual) Monocytes # (Manual) PT INR D-Dimer ABG pH ABG pO2 114.2 H ABG HCO3 ABG O2 Saturation ABG Base Excess ABG Hemoglobin 9.1 L Oxyhemoglobin Sodium 134 L Potassium Chloride Carbon Dioxide 20 L BUN 34 H Glucose POC Glucose Lactic Acid Calcium 7.1 L Phosphorus Magnesium AST ALT Alkaline Phosphatase Lactate Dehydrogenase Troponin T C-Reactive Protein NT-Pro-B Natriuret Pep Total Protein Albumin LDL Cholesterol Direct Vitamin B12 Crossmatch 11/22/21 11/22/21 11/22/21 07:07 07:07 23:54 WBC RBC 3.30 L Hgb 9.0 L Hct 28.5 L MCV MCH 27 L MCHC RDW 21.0 H Plt Count Seg Neuts % (Manual) Lymphocytes % (Manual) Seg Neutrophils # Man Lymphocytes # (Manual) Monocytes # (Manual) PT INR D-Dimer ABG pH ABG pO2 ABG HCO3 ABG O2 Saturation ABG Base Excess ABG Hemoglobin Oxyhemoglobin Sodium Potassium Chloride Carbon Dioxide BUN 32 H Glucose 106 H POC Glucose 110 H Lactic Acid Calcium 7.5 L Phosphorus Magnesium AST ALT Alkaline Phosphatase Lactate Dehydrogenase Troponin T C-Reactive Protein NT-Pro-B Natriuret Pep Total Protein Albumin LDL Cholesterol Direct Vitamin B12 Crossmatch 11/23/21 11/23/21 11/23/21 04:38 04:38 06:01 WBC RBC 3.23 L Hgb 8.8 L Hct 28.0 L MCV MCH 27 L MCHC RDW 21.3 H Plt Count Seg Neuts % (Manual) Lymphocytes % (Manual) Seg Neutrophils # Man Lymphocytes # (Manual) Monocytes # (Manual) PT INR D-Dimer ABG pH ABG pO2 ABG HCO3 ABG O2 Saturation ABG Base Excess ABG Hemoglobin Oxyhemoglobin Sodium 136 L Potassium Chloride Carbon Dioxide 20 L BUN 32 H Glucose 109 H POC Glucose 115 H Lactic Acid Calcium 7.7 L Phosphorus Magnesium AST ALT Alkaline Phosphatase Lactate Dehydrogenase Troponin T C-Reactive Protein NT-Pro-B Natriuret Pep Total Protein Albumin LDL Cholesterol Direct Vitamin B12 Crossmatch 11/23/21 11:40 WBC RBC Hgb Hct MCV MCH MCHC RDW Plt Count Seg Neuts % (Manual) Lymphocytes % (Manual) Seg Neutrophils # Man Lymphocytes # (Manual) Monocytes # (Manual) PT INR D-Dimer ABG pH ABG pO2 ABG HCO3 ABG O2 Saturation ABG Base Excess ABG Hemoglobin Oxyhemoglobin Sodium Potassium Chloride Carbon Dioxide BUN Glucose POC Glucose 117 H Lactic Acid Calcium Phosphorus Magnesium AST ALT Alkaline Phosphatase Lactate Dehydrogenase Troponin T C-Reactive Protein NT-Pro-B Natriuret Pep Total Protein Albumin LDL Cholesterol Direct Vitamin B12 Crossmatch Chest x-ray: pending Allied health notes reviewed: nursing
--- NOTE | 2021-11-23 14:31 | Electrocardiograph Report ---
[facility] Test Date: 2021-11-22 Test Time: 06:54:18 Pat Name: ENRRIQUE GLASS Department: Room: A262 1 Gender: F Practice Representative: VENTURA : 1940 Requested By: SUZIE WESLEY Order Number: [id number] Reading MD: Parminder Owusu Measurements Intervals [place] Rate: 79 P: -2 ID: [id number] QRS: -36 QRSD: 111 T: 158 QT: 396 QTc: 455 Interpretive Statements Sinus rhythm LVH with secondary repolarization abnormality Probable anterior infarct, age indeterminate Compared to ECG 11/21/2021 08:52:07 Left ventricular hypertrophy now present Early repolarization now present Myocardial infarct finding now present Left anterior fascicular block no longer present Right bundle-branch block no longer present Electronically Signed On 11-23-2021 14:30:41 EST by Parminder Owusu
[2021-11-23] MEDS: ACETAMINOPHEN 325 MG TAB PO PRN (16:26)
[2021-11-23] MEDS: PRAVASTATIN 20 MG TAB PO SCH (21:09)
[2021-11-24] MEDS: INSULIN LISPRO 100 UNIT/ML SUB-Q SCH ×4 (00:10→18:01)
[2021-11-24 05:21] LABS: Hematocrit 27.5 % (30.3-42.9); Hemoglobin 8.5 gm/dl (10.1-14.3); Mean Corpuscular HGB Conc 31 % (30-34); Mean Corpuscular Volume 86 fl (79-97); Platelet Count 240 K/mm3 (140-440); Red Blood Count 3.18 M/mm3 (3.65-5.03); Red Cell Distribution Width 21.6 % (13.2-15.2)
[2021-11-24 05:45] LABS: Calcium 7.7 mg/dL (8.4-10.2)
[2021-11-24] MEDS: LEVOTHYROXINE 125 MCG TAB PO SCH (06:38)
[2021-11-24] MEDS: SUCRALFATE 1 GM/10 ML ORAL LIQD PO SCH ×4 (08:12→21:28)
[2021-11-24] MEDS: HYDROcodone/ACETAMINOPHEN 10-325MG TAB FEEDTUBE SCH ×3 (08:12→19:40)
[2021-11-24] MEDS: busPIRone 5 MG TAB PO SCH ×2 (09:07→21:28)
[2021-11-24] MEDS: POLYETHYLENE GLYCOL 3350 17 GM POWDER PO SCH (09:07)
[2021-11-24] MEDS: QUEtiapine 25 MG TAB PO SCH ×2 (09:07→21:28)
[2021-11-24] MEDS: PANTOPRAZOLE 40 MG INJ IV SCH (09:07)
[2021-11-24] MEDS: METOPROLOL TARTRATE 25 MG TAB PO SCH ×2 (09:07→21:29)
[2021-11-24] MEDS: SENNOSIDES ORAL LIQD 8.8 MG/5 ML ORAL LIQD PO SCH ×2 (09:08→21:30)
[2021-11-24] MEDS: DOCUSATE SODIUM 100 MG/10 ML ORAL LIQD PO SCH (09:08)
--- NOTE | 2021-11-24 11:53 | Progress Note ---
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 She was found to be in respiratory distress, initially treated with NRB. Pt was also noted to be septic with radiographic evidence of bilateral PNA Acute Respiratory Failure Septic Shock GBS Bacteremia Bilateral Pneumonia Bilateral Pleural Effusions Right pneumothorax and s/p right chest tube Acute HFrEF DVT- s/p IVC filter Cardiomyopathy (EF reduced to 30-35% on echo this admission) NSVT Tn Elevation (?Type [address] CT in the setting of hypoxia & shock) Anemia GI bleed CAD s/p PCI (2004) CHB s/p PPM ([facility]) Hypothyroidism H/o HTN H/o DM Arthritis Echo reviewed - EF 30-35%, mild diastolic dysfunction, RV mildly dilated, moderate MR, moderate TR, moderate pulmonary HTN w/RVSP 49mmHg, no pericardial effusion, large left pleural effusion. Plan: Per documentation patient awaiting trach and PEG procedure this week Continue metoprolol 12.5 mg p.o. twice daily. May titrate up as needed Not on ASA d/t allergy. Patient S/p IVC filter Continue statin Pt seen in conjunction with Dr. Jaramillo who agrees with the assessment and plan of care. 30minutes of critical care time spent on care and coordination of patient - Patient Problems (1) Acute anemia Current Visit: Yes Status: Acute (2) Acute respiratory failure with hypoxia Current Visit: Yes Status: Acute (3) Bilateral pneumonia Current Visit: Yes Status: Acute Subjective Date of service: 11/24/21 Principal diagnosis: Septic shock; AHRF; Anemia; Pneumonia; L. pleural effusion; HFrEF; Pulm HTN Interval history: Patient remained intubated Sinus 80s on monitor Objective Vital Signs Temp Pulse Pulse Resp BP Pulse Ox 11/24/21 11:41 99.4 F 11/24/21 11:37 78 16 96 11/24/21 11:35 78 11/24/21 11:00 82 15 111/45 99 11/24/21 10:30 80 14 117/40 100 11/24/21 10:00 81 14 121/45 100 11/24/21 09:30 77 14 112/44 99 11/24/21 09:07 84 121/48 11/24/21 09:00 80 14 121/48 98 11/24/21 08:30 86 16 134/55 98 11/24/21 08:25 85 151/55 100 11/24/21 08:00 101 H 82 17 174/54 96 11/24/21 07:30 93 H 20 161/67 96 11/24/21 07:17 99.0 F 02 07:00 82 14 135/49 96 11/24/21 06:30 84 14 148/46 98 11/24/21 06:00 92 H 21 151/55 100 11/24/21 05:30 82 14 148/43 100 11/24/21 05:00 91 H 17 138/51 100 11/24/21 04:38 90 11/24/21 04:30 92 H 19 132/54 100 11/24/21 04:00 100.5 F H 76 14 123/48 100 11/24/21 03:30 75 14 124/47 100 11/24/21 03:00 73 14 114/45 100 11/24/21 02:30 71 14 113/40 100 11/24/21 02:00 72 14 111/40 100 11/24/21 01:30 72 14 107/39 100 11/24/21 01:00 72 14 105/38 100 11/24/21 00:30 72 14 110/44 100 11/24/21 00:05 77 11/24/21 00:00 98.6 F 79 14 124/48 100 11/23/21 23:37 73 116/39 100 11/23/21 23:30 73 14 100 11/23/21 23:00 72 13 116/39 100 11/23/21 22:30 71 14 113/36 99 11/23/21 22:00 70 14 107/40 99 11/23/21 21:30 77 17 117/38 100 11/23/21 21:14 79 127/44 0206 21:00 79 14 123/43 100 11/23/21 20:30 80 15 111/43 100 11/23/21 20:00 99.2 F 83 16 111/43 100 11/23/21 19:50 78 11/23/21 19:30 78 15 111/47 100 11/23/21 19:00 78 14 109/40 99 11/23/21 18:30 84 15 113/40 98 11/23/21 18:00 84 16 114/40 99 11/23/21 17:30 81 14 110/40 99 11/23/21 17:00 81 15 112/41 99 11/23/21 16:51 100.5 F H 11/23/21 16:30 81 15 116/44 98 11/23/21 16:22 80 80 14 98 11/23/21 16:00 100.5 F H 81 14 116/45 100 11/23/21 15:54 79 114/43 98 11/23/21 15:30 80 14 114/43 98 11/23/21 15:00 81 13 116/41 98 11/23/21 14:30 80 16 115/40 99 11/23/21 14:00 80 15 121/43 98 11/23/21 13:30 80 17 119/42 98 11/23/21 13:00 78 15 115/48 98 11/23/21 12:30 78 10 L 105/42 98 11/23/21 12:15 100.2 F H 11/23/21 12:00 79 79 16 112/46 98 - Physical Examination General: Other (intubated) HEENT: Positive: Normocephaly Neck: Positive: neck supple, trachea midline Cardiac: Positive: Reg Rate and Rhythm Lungs: Positive: Ventilated Respirations Neuro: Positive: Other (intubated) Abdomen: Positive: Soft Skin: Negative: Rash, Wound Musculoskeletal: No Fluid Collection Extremities: Present: lower extr. pulses, edema - Labs and Meds CBC 11/24/21 Range/Units 04:13 WBC 8.3 (4.5-11.0) K/mm3 RBC 3.18 L (3.65-5.03) M/mm3 Hgb 8.5 L (10.1-14.3) gm/dl Hct 27.5 L (30.3-42.9) % Plt Count 240 (140-440) K/mm3 Comprehensive Metabolic Panel 11/24/21 Range/Units 04:13 Sodium 138 (137-145) mmol/L Potassium 4.6 (3.6-5.0) mmol/L Chloride 103.8 (98-107) mmol/L Carbon Dioxide 23 (22-30) mmol/L BUN 31 H (7-17) mg/dL Creatinine 1.0 (0.6-1.2) mg/dL Glucose 101 H (65-100) mg/dL Calcium 7.7 L (8.4-10.2) mg/dL - Imaging and Cardiology EKG: report reviewed, image reviewed Stress echo: report reviewed Echo: report reviewed Cardiac cath: report reviewed - Telemetry EKG Rhythm: Sinus Rhythm - EKG Sinus rhythms and dysrhythmias: sinus rhythm - Allied health notes Allied health notes reviewed: nursing
--- NOTE | 2021-11-24 12:49 | Progress Note ---
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 - await tracheostomy decision by family - no new issues today, continue care as below; - continue daily SAT and SBT assessment as tolerated meanwhile - prn Levophed for target MAP > 65 mmHg - continue to wean supplemental oxygen for target O2 sat's > 90% acutely - VAP bundle addressed - continue lung protective strategies - continue bronchodilators with pulmonary hygiene per RT - wean per pulmonary driven protocols otherwise - avoid nephrotoxins, renally dose all medications - continue accuchecks with glycemic control per SSI (While critically ill target blood glucose of 140-180 mg/dL; avoid hypoglycemia) - sedation prn for target RASS 0 to -1 - antibiotics per ID recommendations - continue to avoid benzodiazepine's, reduce the possibility of delirium - prn analgesia per CPOT score - Maintenance of sleep-wake cycle, avoid delirium - continue enteral nutritional support at goal rate as tolerated - G.I. & VTE prophylaxis - PT/OT/ROM exercises - continue mobility protocols for pressure ulcer prophylaxis - Monitor hemodynamics closely - continue other care per attending / other consultants - discharge planning ongoing concurrently COVID SPECIFIC INTERVENTIONS - COVID-19 PCR negative .... Re-evaluate in am & prn CONDITION: CRITICAL PROGNOSIS: GUARDED CODE STATUS: FULL CODE The high probability of a clinically significant, sudden or life-threatening deterioration of the [respiratory, cardiovascular & neurologic] system(s) requir ed my full and direct attention, intervention and personal management. The aggregate critical care time was [33] minutes without overlap. Time includes spent on; [x] Data Review and interpretation [x] Patient assessment and monitoring of vital signs [x] Documentation [x] Medication orders and management Subjective Date of service: 11/24/21 Principal diagnosis: Septic shock; AHRF; Anemia; Pneumonia; L. pleural effusion; HFrEF; Pulm HTN Interval history: Patient is seen today for: Septic shock; Acute hypoxemic respiratory failure; Anemia; Bilateral pneumonia; Left pleural effusion; HFrEF 30-35%; Pulm HTN RVSP 49 Seen and examined at bedside; 24hour events reviewed; nursing and respiratory care staff consulted; no adverse overnight events reported to me; resting in bed; remains on MVS; awaiting tracheostomy; failed SBT again today; no new issues otherwise Objective Vital Signs - 12hr 11/24/21 11/24/21 11/24/21 01:00 01:30 02:00 Temperature Pulse Rate 72 72 72 Pulse Rate [ From Monitor] Respiratory 14 14 14 Rate Blood Pressure 105/38 107/39 111/40 O2 Sat by Pulse 100 100 100 Oximetry 11/24/21 11/24/21 11/24/21 02:30 03:00 03:30 Temperature Pulse Rate 71 73 75 Pulse Rate [ From Monitor] Respiratory 14 14 14 Rate Blood Pressure 113/40 114/45 124/47 O2 Sat by Pulse 100 100 100 Oximetry 11/24/21 11/24/21 11/24/21 04:00 04:30 04:38 Temperature 100.5 F H Pulse Rate 76 92 H 90 Pulse Rate [ From Monitor] Respiratory 14 19 Rate Blood Pressure 123/48 132/54 O2 Sat by Pulse 100 100 Oximetry 11/24/21 11/24/21 11/24/21 05:00 05:30 06:00 Temperature Pulse Rate 91 H 82 92 H Pulse Rate [ From Monitor] Respiratory 17 14 21 Rate Blood Pressure 138/51 148/43 151/55 O2 Sat by Pulse 100 100 100 Oximetry 11/24/21 11/24/21 11/24/21 06:30 07:00 07:17 Temperature 99.0 F Pulse Rate 84 82 Pulse Rate [ From Monitor] Respiratory 14 14 Rate Blood Pressure 148/46 135/49 O2 Sat by Pulse 98 96 Oximetry 11/24/21 11/24/21 11/24/21 07:30 08:00 08:25 Temperature Pulse Rate 93 H 101 H 85 Pulse Rate [ 82 From Monitor] Respiratory 20 17 Rate Blood Pressure 161/67 174/54 151/55 O2 Sat by Pulse 96 96 100 Oximetry 11/24/21 11/24/21 11/24/21 08:30 09:00 09:07 Temperature Pulse Rate 86 80 84 Pulse Rate [ From Monitor] Respiratory 16 14 Rate Blood Pressure 134/55 121/48 121/48 O2 Sat by Pulse 98 98 Oximetry 11/24/21 11/24/21 11/24/21 09:30 10:00 10:30 Temperature Pulse Rate 77 81 80 Pulse Rate [ From Monitor] Respiratory 14 14 14 Rate Blood Pressure 112/44 121/45 117/40 O2 Sat by Pulse 99 100 100 Oximetry 11/24/21 11/24/21 11/24/21 11:00 11:30 11:31 Temperature Pulse Rate 82 83 Pulse Rate [ From Monitor] Respiratory 15 22 Rate Blood Pressure 111/45 118/54 O2 Sat by Pulse 99 99 97 Oximetry 11/24/21 11/24/21 11/24/21 11:35 11:37 11:41 Temperature 99.4 F Pulse Rate 78 Pulse Rate [ 78 From Monitor] Respiratory 16 Rate Blood Pressure O2 Sat by Pulse 96 Oximetry 11/24/21 11/24/21 12:00 12:24 Temperature Pulse Rate 93 H 85 Pulse Rate [ From Monitor] Respiratory 14 Rate Blood Pressure 124/44 124/44 O2 Sat by Pulse 97 96 Oximetry Constitutional: no acute distress, other (ETT to MVS, frail elderly woman with mildly increased respiratory effort at rest) Eyes: non-icteric ENT: oropharynx moist, oropharyngeal exudate pre (clear frothy), other (ETT 23 cm ELIZABETH) Neck: supple, no lymphadenopathy, no JVD Effort: normal, mildly labored Ascultation: Bilateral: diminished breath sounds, rhonchi (bases) Percussion: Bilateral: not dull Cardiovascular: regular rate and rhythm, other (S1,S2) Gastrointestinal: normoactive bowel sounds, soft, non-tender, non-distended (protuberant) Integumentary: normal Extremities: no cyanosis, pink and warm, pulses normal, edema (upper etremities) Neurologic: non-focal exam (grossly), pupils equal and round, CN II-XII normal, other (sedated) Psychiatric: mood appropriate, affect normal CBC and BMP: 11/25/21 05:12 11/25/21 05:12 ABG, PT/INR, D-dimer: ABG ABG pH 7.449 pH Units (7.350-7.450) 11/21/21 16:00 ABG pCO2 32.1 mm Hg 11/21/21 16:00 ABG pO2 114.2 mm Hg (80.0-90.0) H 11/21/21 16:00 ABG O2 Saturation 98.3 % (95.0-99.0) 11/21/21 16:00 PT/INR, D-dimer PT 18.6 Sec. (12.2-14.9) H 11/03/21 22:32 INR 1.40 (0.87-1.13) H 11/03/21 22:32 D-Dimer 2655.00 ng/mlDDU (0-234) H 11/11/21 04:28 Abnormal lab findings: Abnormal Labs 11/03/21 11/03/21 11/03/21 22:32 22:32 22:32 WBC 29.3 H RBC 2.93 L Hgb 6.1 L Hct 21.9 L MCV 75 L MCH 21 L MCHC 28 L RDW 19.7 H Plt Count Seg Neuts % (Manual) 97.0 H Lymphocytes % (Manual) 3.0 L Seg Neutrophils # Man 28.4 H Lymphocytes # (Manual) 0.9 L Monocytes # (Manual) PT 18.6 H INR 1.40 H D-Dimer ABG pH ABG pO2 ABG HCO3 ABG O2 Saturation ABG Base Excess ABG Hemoglobin Oxyhemoglobin Sodium Potassium Chloride Carbon Dioxide 20 L BUN 33 H Glucose 119 H POC Glucose Lactic Acid Calcium 8.3 L Phosphorus Magnesium AST ALT Alkaline Phosphatase Lactate Dehydrogenase Troponin T 0.035 H C-Reactive Protein NT-Pro-B Natriuret Pep Total Protein Albumin LDL Cholesterol Direct 34 L Vitamin B12 Crossmatch 11/03/21 11/03/21 11/03/21 22:32 22:32 23:57 WBC RBC Hgb Hct MCV MCH MCHC RDW Plt Count Seg Neuts % (Manual) Lymphocytes % (Manual) Seg Neutrophils # Man Lymphocytes # (Manual) Monocytes # (Manual) PT INR D-Dimer ABG pH ABG pO2 ABG HCO3 ABG O2 Saturation ABG Base Excess ABG Hemoglobin Oxyhemoglobin Sodium Potassium Chloride Carbon Dioxide BUN Glucose POC Glucose Lactic Acid 3.70 H* Calcium Phosphorus Magnesium AST ALT Alkaline Phosphatase 139 H Lactate Dehydrogenase Troponin T C-Reactive Protein NT-Pro-B Natriuret Pep 7895 H Total Protein Albumin 3.5 L LDL Cholesterol Direct Vitamin B12 Crossmatch See Detail 11/04/21 11/04/21 11/05/21 00:59 13:58 00:51 WBC 27.9 H RBC 3.28 L Hgb 7.3 L Hct 25.5 L MCV 78 L MCH 22 L MCHC 29 L RDW 19.1 H Plt Count Seg Neuts % (Manual) 96.0 H Lymphocytes % (Manual) 2.0 L Seg Neutrophils # Man 26.8 H Lymphocytes # (Manual) 0.6 L Monocytes # (Manual) PT INR D-Dimer ABG pH ABG pO2 ABG HCO3 ABG O2 Saturation ABG Base Excess ABG Hemoglobin Oxyhemoglobin Sodium Potassium Chloride Carbon Dioxide BUN Glucose POC Glucose Lactic Acid Calcium Phosphorus Magnesium AST ALT Alkaline Phosphatase Lactate Dehydrogenase Troponin T 0.051 H D 0.032 H D C-Reactive Protein NT-Pro-B Natriuret Pep Total Protein Albumin LDL Cholesterol Direct Vitamin B12 Crossmatch 11/05/21 11/05/21 11/05/21 06:11 06:11 06:11 WBC 31.8 H RBC 3.57 L Hgb 8.0 L Hct 27.7 L MCV 78 L MCH 22 L MCHC 29 L RDW 19.2 H Plt Count Seg Neuts % (Manual) 91.0 H Lymphocytes % (Manual) 4.5 L Seg Neutrophils # Man 28.9 H Lymphocytes # (Manual) Monocytes # (Manual) 1.1 H PT INR D-Dimer 1494.53 H ABG pH ABG pO2 ABG HCO3 ABG O2 Saturation ABG Base Excess ABG Hemoglobin Oxyhemoglobin Sodium Potassium Chloride Carbon Dioxide 19 L BUN 42 H Glucose 115 H POC Glucose Lactic Acid Calcium Phosphorus Magnesium AST 43 H ALT Alkaline Phosphatase Lactate Dehydrogenase 187 H Troponin T C-Reactive Protein 22.20 H NT-Pro-B Natriuret Pep Total Protein 6.0 L Albumin 3.2 L LDL Cholesterol Direct Vitamin B12 Crossmatch 11/05/21 11/05/21 11/06/21 06:11 12:15 00:30 WBC RBC Hgb Hct MCV MCH MCHC RDW Plt Count Seg Neuts % (Manual) Lymphocytes % (Manual) Seg Neutrophils # Man Lymphocytes # (Manual) Monocytes # (Manual) PT INR D-Dimer ABG pH ABG pO2 ABG HCO3 ABG O2 Saturation ABG Base Excess ABG Hemoglobin Oxyhemoglobin Sodium Potassium Chloride Carbon Dioxide BUN Glucose POC Glucose 113 H 69 L Lactic Acid Calcium Phosphorus Magnesium AST ALT Alkaline Phosphatase Lactate Dehydrogenase Troponin T 0.033 H C-Reactive Protein NT-Pro-B Natriuret Pep Total Protein Albumin LDL Cholesterol Direct Vitamin B12 Crossmatch 11/06/21 11/06/21 11/06/21 05:50 15:50 15:50 WBC 25.5 H RBC 3.62 L Hgb 8.0 L Hct 27.5 L MCV 76 L MCH 22 L MCHC 29 L RDW 19.6 H Plt Count Seg Neuts % (Manual) 92.0 H Lymphocytes % (Manual) 5.0 L Seg Neutrophils # Man 23.5 H Lymphocytes # (Manual) Monocytes # (Manual) PT INR D-Dimer ABG pH 7.305 L ABG pO2 ABG HCO3 15.8 L ABG O2 Saturation ABG Base Excess -9.6 L ABG Hemoglobin 8.6 L Oxyhemoglobin 94.6 L Sodium Potassium Chloride 113.9 H Carbon Dioxide 17 L BUN 56 H Glucose 114 H POC Glucose Lactic Acid Calcium 7.9 L Phosphorus Magnesium AST 1410 H ALT 934 H Alkaline Phosphatase 142 H Lactate Dehydrogenase Troponin T C-Reactive Protein NT-Pro-B Natriuret Pep Total Protein 5.0 L Albumin 2.6 L LDL Cholesterol Direct Vitamin B12 Crossmatch 11/07/21 11/07/21 11/07/21 03:30 04:50 08:07 WBC RBC Hgb Hct MCV MCH MCHC RDW Plt Count Seg Neuts % (Manual) Lymphocytes % (Manual) Seg Neutrophils # Man Lymphocytes # (Manual) Monocytes # (Manual) PT INR D-Dimer ABG pH ABG pO2 296.9 H ABG HCO3 18.1 L ABG O2 Saturation 99.5 H ABG Base Excess -5.9 L ABG Hemoglobin 7.6 L Oxyhemoglobin Sodium Potassium Chloride Carbon Dioxide BUN Glucose POC Glucose 106 H 108 H Lactic Acid Calcium Phosphorus Magnesium AST ALT Alkaline Phosphatase Lactate Dehydrogenase Troponin T C-Reactive Protein NT-Pro-B Natriuret Pep Total Protein Albumin LDL Cholesterol Direct Vitamin B12 Crossmatch 11/08/21 11/08/21 11/08/21 03:10 18:05 23:43 WBC RBC Hgb Hct MCV MCH MCHC RDW Plt Count Seg Neuts % (Manual) Lymphocytes % (Manual) Seg Neutrophils # Man Lymphocytes # (Manual) Monocytes # (Manual) PT INR D-Dimer ABG pH ABG pO2 127.4 H ABG HCO3 ABG O2 Saturation ABG Base Excess -3.4 L ABG Hemoglobin 7.4 L Oxyhemoglobin Sodium Potassium Chloride Carbon Dioxide BUN Glucose POC Glucose 113 H 141 H Lactic Acid Calcium Phosphorus Magnesium AST ALT Alkaline Phosphatase Lactate Dehydrogenase Troponin T C-Reactive Protein NT-Pro-B Natriuret Pep Total Protein Albumin LDL Cholesterol Direct Vitamin B12 Crossmatch 11/08/21 11/08/21 11/09/21 Unknown Unknown 02:00 WBC 14.5 H RBC 3.35 L Hgb 7.5 L 8.1 L Hct 25.4 L 27.6 L MCV 76 L 76 L MCH 23 L 22 L MCHC RDW 19.9 H 19.9 H Plt Count Seg Neuts % (Manual) Lymphocytes % (Manual) Seg Neutrophils # Man Lymphocytes # (Manual) Monocytes # (Manual) PT INR D-Dimer ABG pH ABG pO2 ABG HCO3 ABG O2 Saturation ABG Base Excess ABG Hemoglobin Oxyhemoglobin Sodium 154 H D Potassium 3.3 L Chloride 120.7 H Carbon Dioxide 20 L BUN 38 H Glucose POC Glucose Lactic Acid Calcium 8.3 L Phosphorus Magnesium AST ALT Alkaline Phosphatase Lactate Dehydrogenase Troponin T C-Reactive Protein NT-Pro-B Natriuret Pep Total Protein Albumin LDL Cholesterol Direct Vitamin B12 Crossmatch 11/09/21 11/09/21 11/09/21 02:00 02:31 05:12 WBC RBC Hgb Hct MCV MCH MCHC RDW Plt Count Seg Neuts % (Manual) Lymphocytes % (Manual) Seg Neutrophils # Man Lymphocytes # (Manual) Monocytes # (Manual) PT INR D-Dimer ABG pH 7.479 H ABG pO2 121.3 H ABG HCO3 ABG O2 Saturation ABG Base Excess ABG Hemoglobin 7.3 L Oxyhemoglobin Sodium Potassium Chloride 112.5 H Carbon Dioxide BUN 33 H Glucose 161 H POC Glucose 135 H Lactic Acid Calcium Phosphorus Magnesium AST 251 H ALT 481 H Alkaline Phosphatase Lactate Dehydrogenase Troponin T C-Reactive Protein NT-Pro-B Natriuret Pep Total Protein 5.0 L Albumin 2.8 L LDL Cholesterol Direct Vitamin B12 Crossmatch 11/09/21 11/09/21 11/09/21 11:33 16:32 23:28 WBC RBC Hgb Hct MCV MCH MCHC RDW Plt Count Seg Neuts % (Manual) Lymphocytes % (Manual) Seg Neutrophils # Man Lymphocytes # (Manual) Monocytes # (Manual) PT INR D-Dimer ABG pH ABG pO2 ABG HCO3 ABG O2 Saturation ABG Base Excess ABG Hemoglobin Oxyhemoglobin Sodium Potassium Chloride Carbon Dioxide BUN Glucose POC Glucose 132 H 133 H 143 H Lactic Acid Calcium Phosphorus Magnesium AST ALT Alkaline Phosphatase Lactate Dehydrogenase Troponin T C-Reactive Protein NT-Pro-B Natriuret Pep Total Protein Albumin LDL Cholesterol Direct Vitamin B12 Crossmatch 11/10/21 11/10/21 11/10/21 04:00 04:00 05:35 WBC 16.0 H RBC 3.61 L Hgb 8.0 L Hct 27.1 L MCV 75 L MCH 22 L MCHC RDW 20.4 H Plt Count Seg Neuts % (Manual) Lymphocytes % (Manual) Seg Neutrophils # Man Lymphocytes # (Manual) Monocytes # (Manual) PT INR D-Dimer ABG pH ABG pO2 ABG HCO3 ABG O2 Saturation ABG Base Excess ABG Hemoglobin Oxyhemoglobin Sodium 149 H Potassium Chloride 114.1 H Carbon Dioxide BUN 31 H Glucose 148 H POC Glucose 132 H Lactic Acid Calcium 8.2 L Phosphorus Magnesium AST ALT Alkaline Phosphatase Lactate Dehydrogenase Troponin T C-Reactive Protein NT-Pro-B Natriuret Pep Total Protein Albumin LDL Cholesterol Direct Vitamin B12 Crossmatch 11/10/21 11/10/21 11/10/21 11:31 14:08 15:35 WBC RBC Hgb Hct MCV MCH MCHC RDW Plt Count Seg Neuts % (Manual) Lymphocytes % (Manual) Seg Neutrophils # Man Lymphocytes # (Manual) Monocytes # (Manual) PT INR D-Dimer ABG pH ABG pO2 126.6 H ABG HCO3 ABG O2 Saturation ABG Base Excess ABG Hemoglobin 7.4 L Oxyhemoglobin Sodium Potassium Chloride Carbon Dioxide BUN Glucose POC Glucose 147 H Lactic Acid Calcium Phosphorus Magnesium AST ALT Alkaline Phosphatase Lactate Dehydrogenase Troponin T C-Reactive Protein NT-Pro-B Natriuret Pep Total Protein Albumin LDL Cholesterol Direct Vitamin B12 1823 H Crossmatch 11/10/21 11/11/21 11/11/21 17:53 00:55 04:28 WBC RBC Hgb Hct MCV MCH MCHC RDW Plt Count Seg Neuts % (Manual) Lymphocytes % (Manual) Seg Neutrophils # Man Lymphocytes # (Manual) Monocytes # (Manual) PT INR D-Dimer ABG pH ABG pO2 ABG HCO3 ABG O2 Saturation ABG Base Excess ABG Hemoglobin Oxyhemoglobin Sodium 149 H Potassium Chloride 112.2 H Carbon Dioxide BUN 34 H Glucose 148 H POC Glucose 140 H 145 H Lactic Acid Calcium 7.9 L Phosphorus Magnesium AST 53 H ALT 203 H Alkaline Phosphatase Lactate Dehydrogenase Troponin T C-Reactive Protein NT-Pro-B Natriuret Pep Total Protein 4.9 L Albumin 2.6 L LDL Cholesterol Direct Vitamin B12 Crossmatch 11/11/21 11/11/21 11/11/21 04:28 04:28 05:28 WBC 20.9 H RBC 3.47 L Hgb 7.5 L Hct 26.0 L MCV 75 L MCH 22 L MCHC 29 L RDW 21.6 H Plt Count 132 L Seg Neuts % (Manual) Lymphocytes % (Manual) Seg Neutrophils # Man Lymphocytes # (Manual) Monocytes # (Manual) PT INR D-Dimer 2655.00 H ABG pH ABG pO2 ABG HCO3 ABG O2 Saturation ABG Base Excess ABG Hemoglobin Oxyhemoglobin Sodium Potassium Chloride Carbon Dioxide BUN Glucose POC Glucose 154 H Lactic Acid Calcium Phosphorus Magnesium AST ALT Alkaline Phosphatase Lactate Dehydrogenase Troponin T C-Reactive Protein NT-Pro-B Natriuret Pep Total Protein Albumin LDL Cholesterol Direct Vitamin B12 Crossmatch 11/11/21 11/11/21 11/12/21 12:38 18:13 00:14 WBC RBC Hgb Hct MCV MCH MCHC RDW Plt Count Seg Neuts % (Manual) Lymphocytes % (Manual) Seg Neutrophils # Man Lymphocytes # (Manual) Monocytes # (Manual) PT INR D-Dimer ABG pH ABG pO2 ABG HCO3 ABG O2 Saturation ABG Base Excess ABG Hemoglobin Oxyhemoglobin Sodium Potassium Chloride Carbon Dioxide BUN Glucose POC Glucose 137 H 108 H 137 H Lactic Acid Calcium Phosphorus Magnesium AST ALT Alkaline Phosphatase Lactate Dehydrogenase Troponin T C-Reactive Protein NT-Pro-B Natriuret Pep Total Protein Albumin LDL Cholesterol Direct Vitamin B12 Crossmatch 11/12/21 11/12/21 11/12/21 05:40 06:24 11:12 WBC RBC Hgb Hct MCV MCH MCHC RDW Plt Count Seg Neuts % (Manual) Lymphocytes % (Manual) Seg Neutrophils # Man Lymphocytes # (Manual) Monocytes # (Manual) PT INR D-Dimer ABG pH 7.586 H ABG pO2 150.6 H ABG HCO3 27.2 H ABG O2 Saturation 99.1 H ABG Base Excess 5.2 H ABG Hemoglobin 7.5 L Oxyhemoglobin Sodium Potassium Chloride Carbon Dioxide BUN Glucose POC Glucose 132 H 140 H Lactic Acid Calcium Phosphorus Magnesium AST ALT Alkaline Phosphatase Lactate Dehydrogenase Troponin T C-Reactive Protein NT-Pro-B Natriuret Pep Total Protein Albumin LDL Cholesterol Direct Vitamin B12 Crossmatch 11/12/21 11/12/2122 14:50 14:50 17:13 WBC 19.8 H RBC 3.27 L Hgb 7.1 L Hct 24.5 L MCV 75 L MCH 22 L MCHC 29 L RDW 22.3 H Plt Count Seg Neuts % (Manual) Lymphocytes % (Manual) Seg Neutrophils # Man Lymphocytes # (Manual) Monocytes # (Manual) PT INR D-Dimer ABG pH ABG pO2 ABG HCO3 ABG O2 Saturation ABG Base Excess ABG Hemoglobin Oxyhemoglobin Sodium 150 H Potassium 3.3 L Chloride 112.0 H Carbon Dioxide BUN 40 H Glucose 151 H POC Glucose 121 H Lactic Acid Calcium 7.4 L Phosphorus 1.70 L Magnesium 1.40 L AST ALT Alkaline Phosphatase Lactate Dehydrogenase Troponin T C-Reactive Protein NT-Pro-B Natriuret Pep Total Protein Albumin LDL Cholesterol Direct Vitamin B12 Crossmatch 11/12/21 11/13/21 11/13/21 23:19 05:34 06:30 WBC RBC Hgb Hct MCV MCH MCHC RDW Plt Count Seg Neuts % (Manual) Lymphocytes % (Manual) Seg Neutrophils # Man Lymphocytes # (Manual) Monocytes # (Manual) PT INR D-Dimer ABG pH ABG pO2 ABG HCO3 ABG O2 Saturation ABG Base Excess ABG Hemoglobin Oxyhemoglobin Sodium 149 H Potassium Chloride 60.0 L Carbon Dioxide BUN 40 H Glucose 146 H POC Glucose 113 H 132 H Lactic Acid Calcium 7.3 L Phosphorus Magnesium 2.40 H AST ALT 72 H Alkaline Phosphatase Lactate Dehydrogenase Troponin T C-Reactive Protein NT-Pro-B Natriuret Pep Total Protein 5.2 L Albumin 2.2 L LDL Cholesterol Direct Vitamin B12 Crossmatch 11/13/21 11/13/21 11/13/21 06:30 08:30 11:19 WBC 21.2 H RBC 3.12 L Hgb 6.8 L Hct 23.2 L MCV 74 L MCH 22 L MCHC 29 L RDW 22.2 H Plt Count 135 L Seg Neuts % (Manual) Lymphocytes % (Manual) Seg Neutrophils # Man Lymphocytes # (Manual) Monocytes # (Manual) PT INR D-Dimer ABG pH ABG pO2 ABG HCO3 ABG O2 Saturation ABG Base Excess ABG Hemoglobin Oxyhemoglobin Sodium Potassium Chloride Carbon Dioxide BUN Glucose POC Glucose 136 H Lactic Acid Calcium Phosphorus Magnesium AST ALT Alkaline Phosphatase Lactate Dehydrogenase Troponin T C-Reactive Protein NT-Pro-B Natriuret Pep Total Protein Albumin LDL Cholesterol Direct Vitamin B12 Crossmatch See Detail 11/13/21 11/14/21 11/14/21 18:21 00:01 04:46 WBC 20.0 H RBC 3.41 L Hgb 7.9 L Hct 26.8 L MCV MCH 23 L MCHC 29 L RDW 24.0 H Plt Count Seg Neuts % (Manual) Lymphocytes % (Manual) Seg Neutrophils # Man Lymphocytes # (Manual) Monocytes # (Manual) PT INR D-Dimer ABG pH ABG pO2 ABG HCO3 ABG O2 Saturation ABG Base Excess ABG Hemoglobin Oxyhemoglobin Sodium Potassium Chloride Carbon Dioxide BUN Glucose POC Glucose 149 H 141 H Lactic Acid Calcium Phosphorus Magnesium AST ALT Alkaline Phosphatase Lactate Dehydrogenase Troponin T C-Reactive Protein NT-Pro-B Natriuret Pep Total Protein Albumin LDL Cholesterol Direct Vitamin B12 Crossmatch 11/14/21 11/14/21 11/14/21 04:46 05:10 11:10 WBC RBC Hgb Hct MCV MCH MCHC RDW Plt Count Seg Neuts % (Manual) Lymphocytes % (Manual) Seg Neutrophils # Man Lymphocytes # (Manual) Monocytes # (Manual) PT INR D-Dimer ABG pH ABG pO2 ABG HCO3 ABG O2 Saturation ABG Base Excess ABG Hemoglobin Oxyhemoglobin Sodium 148 H Potassium Chloride 113.1 H Carbon Dioxide BUN 43 H Glucose 140 H POC Glucose 132 H 133 H Lactic Acid Calcium 7.5 L Phosphorus Magnesium AST ALT Alkaline Phosphatase Lactate Dehydrogenase Troponin T C-Reactive Protein NT-Pro-B Natriuret Pep Total Protein Albumin LDL Cholesterol Direct Vitamin B12 Crossmatch 11/14/21 11/14/21 11/14/21 16:14 17:48 23:23 WBC RBC Hgb Hct MCV MCH MCHC RDW Plt Count Seg Neuts % (Manual) Lymphocytes % (Manual) Seg Neutrophils # Man Lymphocytes # (Manual) Monocytes # (Manual) PT INR D-Dimer ABG pH ABG pO2 ABG HCO3 28.0 H ABG O2 Saturation ABG Base Excess 3.1 H ABG Hemoglobin 5.8 L Oxyhemoglobin 94.8 L Sodium Potassium Chloride Carbon Dioxide BUN Glucose POC Glucose 130 H 136 H Lactic Acid Calcium Phosphorus Magnesium AST ALT Alkaline Phosphatase Lactate Dehydrogenase Troponin T C-Reactive Protein NT-Pro-B Natriuret Pep Total Protein Albumin LDL Cholesterol Direct Vitamin B12 Crossmatch 11/15/21 11/15/21 11/15/21 05:20 05:50 05:50 WBC 19.9 H RBC 3.50 L Hgb 8.2 L Hct 27.9 L MCV MCH 23 L MCHC 29 L RDW 24.9 H Plt Count Seg Neuts % (Manual) Lymphocytes % (Manual) Seg Neutrophils # Man Lymphocytes # (Manual) Monocytes # (Manual) PT INR D-Dimer ABG pH ABG pO2 ABG HCO3 ABG O2 Saturation ABG Base Excess ABG Hemoglobin Oxyhemoglobin Sodium 149 H Potassium Chloride 112.0 H Carbon Dioxide BUN 48 H Glucose 152 H POC Glucose 137 H Lactic Acid Calcium 7.9 L Phosphorus Magnesium AST ALT Alkaline Phosphatase Lactate Dehydrogenase Troponin T C-Reactive Protein NT-Pro-B Natriuret Pep Total Protein Albumin LDL Cholesterol Direct Vitamin B12 Crossmatch 11/15/21 11/15/21 11/15/21 12:12 17:07 23:24 WBC RBC Hgb Hct MCV MCH MCHC RDW Plt Count Seg Neuts % (Manual) Lymphocytes % (Manual) Seg Neutrophils # Man Lymphocytes # (Manual) Monocytes # (Manual) PT INR D-Dimer ABG pH ABG pO2 ABG HCO3 ABG O2 Saturation ABG Base Excess ABG Hemoglobin Oxyhemoglobin Sodium Potassium Chloride Carbon Dioxide BUN Glucose POC Glucose 114 H 135 H 123 H Lactic Acid Calcium Phosphorus Magnesium AST ALT Alkaline Phosphatase Lactate Dehydrogenase Troponin T C-Reactive Protein NT-Pro-B Natriuret Pep Total Protein Albumin LDL Cholesterol Direct Vitamin B12 Crossmatch 11/16/21 11/16/21 11/16/21 05:21 10:00 10:00 WBC 21.7 H RBC 2.57 L Hgb 6.0 L Hct 20.2 L D MCV MCH 24 L MCHC RDW 26.3 H Plt Count Seg Neuts % (Manual) Lymphocytes % (Manual) Seg Neutrophils # Man Lymphocytes # (Manual) Monocytes # (Manual) PT INR D-Dimer ABG pH ABG pO2 ABG HCO3 ABG O2 Saturation ABG Base Excess ABG Hemoglobin Oxyhemoglobin Sodium 153 H Potassium Chloride 114.9 H Carbon Dioxide BUN 74 H Glucose 155 H POC Glucose 127 H Lactic Acid Calcium 8.1 L Phosphorus Magnesium AST ALT Alkaline Phosphatase Lactate Dehydrogenase Troponin T C-Reactive Protein NT-Pro-B Natriuret Pep Total Protein Albumin LDL Cholesterol Direct Vitamin B12 Crossmatch 01/11/16/21 11/16/21 11:34 14:00 15:25 WBC 17.2 H RBC 2.08 L Hgb 4.7 L* Hct 16.2 L* MCV 78 L MCH 23 L MCHC 29 L RDW 26.0 H Plt Count Seg Neuts % (Manual) 87.0 H Lymphocytes % (Manual) 8.0 L Seg Neutrophils # Man 15.0 H Lymphocytes # (Manual) Monocytes # (Manual) 0.9 H PT INR D-Dimer ABG pH ABG pO2 ABG HCO3 ABG O2 Saturation ABG Base Excess ABG Hemoglobin Oxyhemoglobin Sodium Potassium Chloride Carbon Dioxide BUN Glucose POC Glucose 131 H Lactic Acid Calcium Phosphorus Magnesium AST ALT Alkaline Phosphatase Lactate Dehydrogenase Troponin T C-Reactive Protein NT-Pro-B Natriuret Pep Total Protein Albumin LDL Cholesterol Direct Vitamin B12 Crossmatch See Detail 11/16/21 11/16/21 11/16/21 15:25 17:21 22:43 WBC RBC Hgb 8.6 L D Hct 27.7 L D MCV MCH MCHC RDW Plt Count Seg Neuts % (Manual) Lymphocytes % (Manual) Seg Neutrophils # Man Lymphocytes # (Manual) Monocytes # (Manual) PT INR D-Dimer ABG pH ABG pO2 ABG HCO3 ABG O2 Saturation ABG Base Excess ABG Hemoglobin Oxyhemoglobin Sodium 148 H Potassium Chloride 113.2 H Carbon Dioxide BUN 84 H Glucose 164 H POC Glucose 124 H Lactic Acid Calcium 7.6 L Phosphorus Magnesium AST ALT Alkaline Phosphatase Lactate Dehydrogenase Troponin T C-Reactive Protein NT-Pro-B Natriuret Pep Total Protein Albumin LDL Cholesterol Direct Vitamin B12 Crossmatch 11/16/21 11/17/21 11/17/21 23:07 05:33 05:56 WBC 25.1 H RBC 3.47 L Hgb 8.7 L Hct 28.5 L MCV MCH 25 L MCHC RDW 22.3 H Plt Count Seg Neuts % (Manual) Lymphocytes % (Manual) Seg Neutrophils # Man Lymphocytes # (Manual) Monocytes # (Manual) PT INR D-Dimer ABG pH ABG pO2 ABG HCO3 ABG O2 Saturation ABG Base Excess ABG Hemoglobin Oxyhemoglobin Sodium Potassium Chloride Carbon Dioxide BUN Glucose POC Glucose 128 H 133 H Lactic Acid Calcium Phosphorus Magnesium AST ALT Alkaline Phosphatase Lactate Dehydrogenase Troponin T C-Reactive Protein NT-Pro-B Natriuret Pep Total Protein Albumin LDL Cholesterol Direct Vitamin B12 Crossmatch 11/17/21 11/17/21 11/17/21 05:56 11:00 11:55 WBC RBC Hgb 8.3 L Hct 26.9 L MCV MCH MCHC RDW Plt Count Seg Neuts % (Manual) Lymphocytes % (Manual) Seg Neutrophils # Man Lymphocytes # (Manual) Monocytes # (Manual) PT INR D-Dimer ABG pH ABG pO2 ABG HCO3 ABG O2 Saturation ABG Base Excess ABG Hemoglobin Oxyhemoglobin Sodium 151 H Potassium Chloride 113.6 H Carbon Dioxide BUN 85 H Glucose 132 H POC Glucose 121 H Lactic Acid Calcium 7.8 L Phosphorus Magnesium AST ALT Alkaline Phosphatase Lactate Dehydrogenase Troponin T C-Reactive Protein NT-Pro-B Natriuret Pep Total Protein 5.1 L Albumin 2.2 L LDL Cholesterol Direct Vitamin B12 Crossmatch 11/17/21 11/17/21 11/18/21 18:04 18:55 00:26 WBC RBC Hgb 7.5 L 7.1 L Hct 24.8 L 23.6 L MCV MCH MCHC RDW Plt Count Seg Neuts % (Manual) Lymphocytes % (Manual) Seg Neutrophils # Man Lymphocytes # (Manual) Monocytes # (Manual) PT INR D-Dimer ABG pH ABG pO2 ABG HCO3 ABG O2 Saturation ABG Base Excess ABG Hemoglobin Oxyhemoglobin Sodium Potassium Chloride Carbon Dioxide BUN Glucose POC Glucose 144 H Lactic Acid Calcium Phosphorus Magnesium AST ALT Alkaline Phosphatase Lactate Dehydrogenase Troponin T C-Reactive Protein NT-Pro-B Natriuret Pep Total Protein Albumin LDL Cholesterol Direct Vitamin B12 Crossmatch 11/18/21 11/18/21 11/18/21 00:43 05:10 05:10 WBC 12.5 H RBC 2.39 L Hgb 6.1 L Hct 20.2 L MCV MCH 25 L MCHC RDW 23.2 H Plt Count Seg Neuts % (Manual) Lymphocytes % (Manual) Seg Neutrophils # Man Lymphocytes # (Manual) Monocytes # (Manual) PT INR D-Dimer ABG pH ABG pO2 ABG HCO3 ABG O2 Saturation ABG Base Excess ABG Hemoglobin Oxyhemoglobin Sodium 131 L D Potassium 2.9 L* D Chloride 97.8 L Carbon Dioxide BUN 58 H Glucose 665 H* POC Glucose 139 H Lactic Acid Calcium 7.0 L Phosphorus 2.20 L D Magnesium 1.50 L AST ALT Alkaline Phosphatase Lactate Dehydrogenase Troponin T C-Reactive Protein NT-Pro-B Natriuret Pep Total Protein Albumin LDL Cholesterol Direct Vitamin B12 Crossmatch 11/18/21 11/18/21 11/18/21 05:23 07:10 10:45 WBC RBC Hgb Hct MCV MCH MCHC RDW Plt Count Seg Neuts % (Manual) Lymphocytes % (Manual) Seg Neutrophils # Man Lymphocytes # (Manual) Monocytes # (Manual) PT INR D-Dimer ABG pH ABG pO2 ABG HCO3 ABG O2 Saturation ABG Base Excess ABG Hemoglobin Oxyhemoglobin Sodium 148 H D Potassium 3.1 L Chloride 111.9 H Carbon Dioxide BUN 63 H Glucose 141 H POC Glucose 124 H Lactic Acid Calcium 8.1 L D Phosphorus Magnesium AST ALT Alkaline Phosphatase Lactate Dehydrogenase Troponin T C-Reactive Protein NT-Pro-B Natriuret Pep Total Protein Albumin LDL Cholesterol Direct Vitamin B12 Crossmatch See Detail 11/18/21 11/19/21 11/19/21 11:57 00:19 04:55 WBC RBC 3.35 L Hgb 9.0 L 8.9 L Hct 28.3 L D 28.1 L MCV MCH 27 L MCHC RDW 20.3 H Plt Count Seg Neuts % (Manual) Lymphocytes % (Manual) Seg Neutrophils # Man Lymphocytes # (Manual) Monocytes # (Manual) PT INR D-Dimer ABG pH ABG pO2 ABG HCO3 ABG O2 Saturation ABG Base Excess ABG Hemoglobin Oxyhemoglobin Sodium Potassium Chloride Carbon Dioxide BUN Glucose POC Glucose 119 H Lactic Acid Calcium Phosphorus Magnesium AST ALT Alkaline Phosphatase Lactate Dehydrogenase Troponin T C-Reactive Protein NT-Pro-B Natriuret Pep Total Protein Albumin LDL Cholesterol Direct Vitamin B12 Crossmatch 11/19/21 11/19/21 11/20/21 04:55 05:42 00:55 WBC RBC Hgb 9.0 L Hct 28.6 L MCV MCH MCHC RDW Plt Count Seg Neuts % (Manual) Lymphocytes % (Manual) Seg Neutrophils # Man Lymphocytes # (Manual) Monocytes # (Manual) PT INR D-Dimer ABG pH ABG pO2 ABG HCO3 ABG O2 Saturation ABG Base Excess ABG Hemoglobin Oxyhemoglobin Sodium Potassium 3.5 L Chloride 108.6 H Carbon Dioxide BUN 47 H Glucose 207 H POC Glucose 63 L Lactic Acid Calcium 7.1 L Phosphorus Magnesium AST ALT Alkaline Phosphatase Lactate Dehydrogenase Troponin T C-Reactive Protein NT-Pro-B Natriuret Pep Total Protein Albumin LDL Cholesterol Direct Vitamin B12 Crossmatch 11/20/21 11/20/21 11/20/21 05:40 05:40 Unknown WBC RBC 3.40 L Hgb 9.1 L Hct 28.8 L MCV MCH 27 L MCHC RDW 20.7 H Plt Count Seg Neuts % (Manual) Lymphocytes % (Manual) Seg Neutrophils # Man Lymphocytes # (Manual) Monocytes # (Manual) PT INR D-Dimer ABG pH ABG pO2 ABG HCO3 ABG O2 Saturation ABG Base Excess -2.7 L ABG Hemoglobin 9.5 L Oxyhemoglobin 94.3 L Sodium Potassium 3.5 L Chloride 108.9 H Carbon Dioxide BUN 37 H Glucose 117 H POC Glucose Lactic Acid Calcium 7.5 L Phosphorus Magnesium AST ALT Alkaline Phosphatase Lactate Dehydrogenase Troponin T C-Reactive Protein NT-Pro-B Natriuret Pep Total Protein Albumin LDL Cholesterol Direct Vitamin B12 Crossmatch 11/21/21 11/21/21 11/21/21 04:30 04:30 16:00 WBC RBC 3.25 L Hgb 8.6 L Hct 28.1 L MCV MCH 26 L MCHC RDW 20.7 H Plt Count Seg Neuts % (Manual) Lymphocytes % (Manual) Seg Neutrophils # Man Lymphocytes # (Manual) Monocytes # (Manual) PT INR D-Dimer ABG pH ABG pO2 114.2 H ABG HCO3 ABG O2 Saturation ABG Base Excess ABG Hemoglobin 9.1 L Oxyhemoglobin Sodium 134 L Potassium Chloride Carbon Dioxide 20 L BUN 34 H Glucose POC Glucose Lactic Acid Calcium 7.1 L Phosphorus Magnesium AST ALT Alkaline Phosphatase Lactate Dehydrogenase Troponin T C-Reactive Protein NT-Pro-B Natriuret Pep Total Protein Albumin LDL Cholesterol Direct Vitamin B12 Crossmatch 11/22/21 11/22/21 11/22/21 07:07 07:07 23:54 WBC RBC 3.30 L Hgb 9.0 L Hct 28.5 L MCV MCH 27 L MCHC RDW 21.0 H Plt Count Seg Neuts % (Manual) Lymphocytes % (Manual) Seg Neutrophils # Man Lymphocytes # (Manual) Monocytes # (Manual) PT INR D-Dimer ABG pH ABG pO2 ABG HCO3 ABG O2 Saturation ABG Base Excess ABG Hemoglobin Oxyhemoglobin Sodium Potassium Chloride Carbon Dioxide BUN 32 H Glucose 106 H POC Glucose 110 H Lactic Acid Calcium 7.5 L Phosphorus Magnesium AST ALT Alkaline Phosphatase Lactate Dehydrogenase Troponin T C-Reactive Protein NT-Pro-B Natriuret Pep Total Protein Albumin LDL Cholesterol Direct Vitamin B12 Crossmatch 11/23/21 11/23/21 11/23/21 04:38 04:38 06:01 WBC RBC 3.23 L Hgb 8.8 L Hct 28.0 L MCV MCH 27 L MCHC RDW 21.3 H Plt Count Seg Neuts % (Manual) Lymphocytes % (Manual) Seg Neutrophils # Man Lymphocytes # (Manual) Monocytes # (Manual) PT INR D-Dimer ABG pH ABG pO2 ABG HCO3 ABG O2 Saturation ABG Base Excess ABG Hemoglobin Oxyhemoglobin Sodium 136 L Potassium Chloride Carbon Dioxide 20 L BUN 32 H Glucose 109 H POC Glucose 115 H Lactic Acid Calcium 7.7 L Phosphorus Magnesium AST ALT Alkaline Phosphatase Lactate Dehydrogenase Troponin T C-Reactive Protein NT-Pro-B Natriuret Pep Total Protein Albumin LDL Cholesterol Direct Vitamin B12 Crossmatch 11/23/21 11/24/21 11/24/21 11:40 00:03 04:13 WBC RBC 3.18 L Hgb 8.5 L Hct 27.5 L MCV MCH 27 L MCHC RDW 21.6 H Plt Count Seg Neuts % (Manual) Lymphocytes % (Manual) Seg Neutrophils # Man Lymphocytes # (Manual) Monocytes # (Manual) PT INR D-Dimer ABG pH ABG pO2 ABG HCO3 ABG O2 Saturation ABG Base Excess ABG Hemoglobin Oxyhemoglobin Sodium Potassium Chloride Carbon Dioxide BUN Glucose POC Glucose 117 H 111 H Lactic Acid Calcium Phosphorus Magnesium AST ALT Alkaline Phosphatase Lactate Dehydrogenase Troponin T C-Reactive Protein NT-Pro-B Natriuret Pep Total Protein Albumin LDL Cholesterol Direct Vitamin B12 Crossmatch 11/24/21 11/24/21 11/24/21 04:13 05:30 11:10 WBC RBC Hgb Hct MCV MCH MCHC RDW Plt Count Seg Neuts % (Manual) Lymphocytes % (Manual) Seg Neutrophils # Man Lymphocytes # (Manual) Monocytes # (Manual) PT INR D-Dimer ABG pH ABG pO2 ABG HCO3 ABG O2 Saturation ABG Base Excess ABG Hemoglobin Oxyhemoglobin Sodium Potassium Chloride Carbon Dioxide BUN 31 H Glucose 101 H POC Glucose 115 H 107 H Lactic Acid Calcium 7.7 L Phosphorus Magnesium AST ALT Alkaline Phosphatase Lactate Dehydrogenase Troponin T C-Reactive Protein NT-Pro-B Natriuret Pep Total Protein Albumin LDL Cholesterol Direct Vitamin B12 Crossmatch Allied health notes reviewed: nursing
--- NOTE | 2021-11-24 18:38 | Progress Note ---
<MAYCOLJASBIR Maria TeresaMarissa - Last Filed: 11/24/21 18:39> Assessment and Plan Assessment and plan: This is a 81-year-old female with known history of diabetes mellitus, hypertension, PPM, and arthritis admitted for sepsis and acute hypoxia respiratory failure 2/2 bilateral pneumonia requiring intubation and ventilatory support Assessment and Plan Neuro : Acute encephalopathy -Neurology consulted, appreciate recommendations -CT brain showed no acute events -EEG interpreted as abnormal record due to diffuse slowing and therefore5 height noted throughout the recording, suggestive of encephalopathic process and/or drug effect, possibilities of postictal state cannot be totally excluded. Clinical correlation is in order -MRI brain not obtained-> patient has metal in her body -Repeat CT head with no acute findings -Reorientation as needed -Ammonia 42, B12 1823, TSH 1.5 -BuSpar, fentanyl patch, Seroquel, Maury Cardio: Heart failure with reduced EF, h/o chronic heart block s/p PPM, HTN/CAD s/p PCI (2004) -s/p vasopressor support with levophed -map goal >65 -11/04 echocardiogram shows EF 30 to 35% -Cardiology consulted, appreciate recommendations -Continue beta-charleen and statin therapy -Not on aspirin due to allergy -Statins on hold due to elevated LFTs -Blood pressure monitor per protocol -Resume home antihypertensives as needed Resp: Acute hypoxic respiratory failure secondary to bilateral pneumonia, bilateral pleural effusion. Right pneumothorax (resolved) -COVID-19 PCR negative -Intubated on 11/06 with 6.00 ETT at 18 at the lip and changed over bougie on 11/11-7.50 ETT at 20 at the lip -A.m. vent settings: Assist-control rate 14, tidal volume 400, PEEP 6, FiO2 30 % -See RT notes for titration -Surgery consult for trach -S/p bedside bronchoscopy on 11/11 complicated by pneumothorax -S/p chest tube placement for right pneumothorax and dislodgment by patient on 11/15 -ABG/CXR per CCM -VAP bundle -Right chest wall ultrasound shows pleural effusion -SPO2 monitoring -Mucomyst every 8 -Albuterol every 8 GI: S/p GI bleed, duodenal ulcer,transaminitis -GI consulted, appreciate recommendations -Nutrition consult for tube feeding -BR: Senokot, MiraLAX -Surgery consult for PEG -H2 charleen -Carafate -24-hour +506 ml -BM 11/23 -Gastric occult positive : Urinary retention -Gamble catheter -Strict intake and output -Trend BMP ID: Septic shock, POA, bilateral pneumonia, bacteremia -Infectious disease consulted, appreciate recommendations -COVID-19 PCR negative -Presented with fevers, leukocytosis and hypotension -11/04 blood cultures positive with a group B strep bacteremia however repeat blood cultures on the with no growth to date -Echo showed no evidence of vegetation -ABX therapy: Ceftriaxone (), vancomycin (11/05, ), clindamycin ), cefepime , ) -Monitor WBC and fever curve -Recultured on 11/11 with NGTD -Bedside bronchoscopy for mucous plug on CXR 11/11 Heme: Acute DVT in the right external iliac vein, common femoral vein, superior aspect of femoral vein, Acute microcytic anemia -Evidenced on bilateral upper lower extremity ultrasound -Therapeutic Lovenox -S/p 2 unit PRBC -Trend CBC -Transfuse for hemoglobin less than 7 -S/p IVC filter Endo: h/o DM and hypothyroidism -Continue home Synthroid -SSI -Accu-Cheks every 6 -Avoid hypoglycemia The high probability of a clinically significant, sudden or life threatening deterioration of the [multi] system(s) required my full and direct attention, intervention and personal management. The aggregate critical care time was [60] minutes. This time is in addition to time spent performing reported procedures but includes the following: [x] Data Review and interpretation [x] Patient assessment and monitoring of vital signs [x] Documentation [x] Medication orders and management Disposition Plan: ICU Total Time Spent with Patient (Minutes): 60 History Interval history: This is an 82-year-old female with DM, HTN , PPM and arthritis who presented to the emergency department on 11/04 for shortness of breath ongoing for the past 3 days, cough and according to family a fever of 102.2. Upon arrival of EMS patient was found to be tachypneic and hypoxic with SPO2 of 76% on room air which later improved to 88% on nonrebreather. Work-up in the emergency department included a CXR which showed bilateral interstitial pulmonary edema with bilateral pleural effusions and bibasilar opacities, leukocytosis and anemia with a hemoglobin of 6.1. Patient was admitted to the hospitalist service with acute anemia, acute hypoxic respiratory failure, bilateral pneumonia and COVID-19 PUI with consults to pulmonology, infectious disease and later cardiology. Patient was eventually intubated in the emergency department on 11/06. Hospital Course to date: 11/04/2021: Empiric therapy with iv levaquin/vancomycin. COVID PCR pending. Will consult ID. PCCM consulted, will follow recs. Hypotensive this AM, ordered bolus and fluids at 150 cc/hr. May require pressor support if bp does not improve. 11/05/2021: GBS on bcx +, currently on rocephin IV. Currently on bipap due to respiratory distress overnight. Worsening BL opacities on CXR. May be volume overload vs pneumonia. Unfortunately bp too low for lasix at this point. WIll continue levophed and bipap. Once able to tolerate, may do trial of albumin/lasix. Call attempt made to Niraj, no response. Will try again tomorrow to update. 11/06/2021: Decompensated overnight requiring intubation. CXR shows worsening interstitial infiltrates. Currenlty on dopamine, levophed, vasopressin. PICC line ordered. Advised RN to place gamble for I/O monitoring. Would benefit from diuresis but very volume overloaded. Prognosis guarded 11/08: Off sedation this am, remains unresponsive only grimace to pain. Hold all sedatives agents for now, patient is off pressors this am. Hypernatremia from today's lab- D5W X1bag, and low K repleted, repeat lab in the am. Severe constipation also noted from KUB, BR added. 11/09: Sudden SPO2 drop in the 60s this am. Patient was manually bagged and deep suctioned. Patient is currently stable on the vent, repeat CXR with no significant change. D/w CCM Mucomyst and brochodilator added. Patient mentation is unchanged, continue to hold off on sedative agents. Neurology consulted. 11/10: Acute DVT noted on bilateral lower extremity Doppler ultrasound therefore she was started on Lovenox treatment dose. Failed SBT. Hypernatremia and hyperchloremia noted, free water flush adjusted. 11/11: Patient noted to be febrile with increasing of the cytosis, UA/BC sent and CXR ordered. ID escalated antibiotics to cefepime. CXR demonstrated mucous plug, bedside bronchoscopy was performed and O ETT was changed over bougie from 6 cm to 7.5. Patient was noted to have a pneumothorax postprocedure and chest tube was placed. Family updated by [facility]. Free water flush increased and will add Jaswant supplementation. 11/12: Patient not noted to follow commands, hypernatremia worsen/persist, increasing free water flush, potassium and magnesium and phosphorus repleted. Hemoglobin noted to be 7.1/24.5 from 7.03/12 yesterday. We will continue to trend and monitor. Vent changes per [facility]. Repeat CXR showed no residual pneumothorax. Consider waterseal tomorrow. Given persistent leukocytosis antibiotics escalated to cefepime per ID. 11/13: Remains on cefepime and vancomycin, vent changes per [facility]. Anemia noted and given 1 unit PRBC. And beta-charleen held in setting of Levophed drip infusing. Remains on fentanyl drip. 11/14: Patient put on CPAP trial by [facility], will continue chest tube until after extubation. Will rest on assist control. CT brain was cancelled by trade manager and reordered. 11/15: Patient removed chest tube overnight. Will obtain cxr. remains on low dose levo. CTH completed with no acute findings. RT to place on CPAP. 11/16: Hypernatremia/hyperchloremia noted on the increase of day water flushes. Anemia noted and ordered PRBC. asked RT to place on cpap but not done yet 11/17: Patient remains on the vent, awake and following commands. H&H stable s/p 2units PRBCs. GI on consult, no intervention at this time. Will continue protonix gtt and serial H&H Q6hrs. Keep patient NPO for now, D5w added for hypernatremia and NPO status. Plan for IVC filter placement today by Vascular. 11/18: Patient is s/p IVC filter. H&H continue to trend down, hbg 6.1 this am, 1 unit of PRBCs ordered. Plan for possible EGD today by GI. Keep patient NPO, continue PPI drip and serial H&H Q6hrs. Electrolytes repleted, repeat lab in the am 11/19: S/p EGD- larger duodenal ulcer noted, see operative note. GI recommendations noted also noted. H&H stable this am. Keep patient on protonix gtt for now. Will keep patient NPO, continue IVF and serial H&H for now. Electrolytes repleted, repeat labs in the am 2/3: Very agitated and restless this am, fentanyl gtt resumed. Patient remains on protonix gtt, H&H remains stable. Will switch protonix gtt to IV BID, continue carafate and okay to resume meds at this time. Will F/u with GI to see if TF can be resumed. Gamble was reinserted overnight for retention. Electrolytes repleted, repeat in the am. Plan for possible PST today for possible extubation per CCM. 11/21: Patient is now on seroquel and patient's home buspar resumed. Patient more calm this morning, fentanyl gtt is off. H&H remains stable and patient is tolerating TF. Patient had a runs of Vtach/PVCs this am, BB added per Cardio. Continue daily PS and wean trial for possible extubation. 11/22: Back on fentanyl gtt overnight , RASS o to -1, following commands. Patient failed PST this am due to increased work of breathing and low SPO2, ABG pending. Patient is also with worsen pitting edema, lasix is still on hold. Will discuss with cardio and CCM to possibly resume lasix. 11/23: MARIA DEL CARMEN overnight. Patient failed PST again this am. Per CCM plan for possible trach and PEG, hold off on IV lasix for now. General surgery consulted and family is aware of possible Trach and PEG. 11/24: Trach/PEG pending this week, continue SBT/SAT as tolerated. No acute events reported overnight. Hospitalist Physical - Constitutional Vitals: Temp Pulse Resp BP Pulse Ox 99.2 F 81 14 124/48 99 11/24/21 16:44 11/24/21 18:00 11/24/21 18:00 11/24/21 18:00 11/24/21 18:00 General appearance: Present: no acute distress, other (On the vent) - EENT Eyes: Present: PERRL, EOM intact ENT: hearing intact, clear oral mucosa, dentition normal - Neck Neck: Present: normal ROM - Respiratory Respiratory effort: normal Respiratory: bilateral: CTA - Cardiovascular Rhythm: regular Heart Sounds: Present: S1 & S2. Absent: systolic murmur, diastolic murmur - Extremities Extremities: no ischemia, pulses intact, pulses symmetrical, No edema, normal temperature, normal color Peripheral Pulses: within normal limits - Abdominal General gastrointestinal: soft, non-tender, non-distended, normal bowel sounds - Integumentary Integumentary: Present: warm, dry - Psychiatric Psychiatric: cooperative - Neurologic Neurologic: CNII-XII intact, no focal deficits, moves all extremities - Allied Health Allied health notes reviewed: nursing, RT, social work HEART Score - HEART Score Troponin: Troponin T 0.033 ng/mL (0.00-0.029) H 11/05/21 06:11 Results - Labs CBC & Chem 7: 11/24/21 04:13 11/24/21 04:13 Labs: Laboratory Last Values WBC 8.3 K/mm3 (4.5-11.0) 11/24/21 04:13 RBC 3.18 M/mm3 (3.65-5.03) L 11/24/21 04:13 Hgb 8.5 gm/dl (10.1-14.3) L 11/24/21 04:13 Hct 27.5 % (30.3-42.9) L 11/24/21 04:13 MCV 86 fl (79-97) 11/24/21 04:13 MCH 27 pg (28-32) L 11/24/21 04:13 MCHC 31 % (30-34) 11/24/21 04:13 RDW 21.6 % (13.2-15.2) H 11/24/21 04:13 Plt Count 240 K/mm3 (140-440) 11/24/21 04:13 Add Manual Diff Complete 11/16/21 15:25 Total Counted 100 11/16/21 15:25 Seg Neutrophils % Scada Engineer 11/06/21 15:50 Seg Neuts % (Manual) 87.0 % (40.0-70.0) H 11/16/21 15:25 Band Neutrophils % 0 % 11/16/21 15:25 Lymphocytes % (Manual) 8.0 % (13.4-35.0) L 11/16/21 15:25 Reactive Lymphs % (Man) 0 % 11/16/21 15:25 Monocytes % (Manual) 5.0 % (0.0-7.3) 11/16/21 15:25 Eosinophils % (Manual) 0 % (0.0-4.3) 11/16/21 15:25 Basophils % (Manual) 0 % (0.0-1.8) 11/16/21 15:25 Metamyelocytes % 0 % 11/16/21 15:25 Myelocytes % 0 % 11/16/21 15:25 Promyelocytes % 0 % 11/16/21 15:25 Blast Cells % 0 % 11/16/21 15:25 Nucleated RBC % Not Reportable 11/16/21 15:25 Seg Neutrophils # Man 15.0 K/mm3 (1.8-7.7) H 11/16/21 15:25 Band Neutrophils # 0.0 K/mm3 11/16/21 15:25 Lymphocytes # (Manual) 1.4 K/mm3 (1.2-5.4) 11/16/21 15:25 Abs React Lymphs (Man) 0.0 K/mm3 11/16/21 15:25 Monocytes # (Manual) 0.9 K/mm3 (0.0-0.8) H 11/16/21 15:25 Eosinophils # (Manual) 0.0 K/mm3 (0.0-0.4) 11/16/21 15:25 Basophils # (Manual) 0.0 K/mm3 (0.0-0.1) 11/16/21 15:25 Metamyelocytes # 0.0 K/mm3 11/16/21 15:25 Myelocytes # 0.0 K/mm3 11/16/21 15:25 Promyelocytes # 0.0 K/mm3 11/16/21 15:25 Blast Cells # 0.0 K/mm3 11/16/21 15:25 WBC Morphology Not Reportable 11/16/21 15:25 Hypersegmented Neuts Not Reportable 11/16/21 15:25 Hyposegmented Neuts Not Reportable 11/16/21 15:25 Hypogranular Neuts Not Reportable 11/16/21 15:25 Smudge Cells Not Reportable 11/16/21 15:25 Toxic Granulation Not Reportable 11/16/21 15:25 Toxic Vacuolation Not Reportable 11/16/21 15:25 Dohle Bodies Not Reportable 11/16/21 15:25 Pelger-Huet Anomaly Not Reportable 11/16/21 15:25 Irina Rods Not Reportable 11/16/21 15:25 Platelet Estimate Consistent w auto 11/16/21 15:25 Clumped Platelets Rare 11/16/21 15:25 Plt Clumps, EDTA Not Reportable 11/16/21 15:25 Large Platelets Not Reportable 11/16/21 15:25 Giant Platelets Not Reportable 11/16/21 15:25 Platelet Satelliting Not Reportable 11/16/21 15:25 Plt Morphology Comment Not Reportable 11/16/21 15:25 RBC Morphology Not Reportable 11/16/21 15:25 Dimorphic RBCs Not Reportable 11/16/21 15:25 Polychromasia Not Reportable 11/16/21 15:25 Hypochromasia 2+ 11/16/21 15:25 Poikilocytosis Not Reportable 11/16/21 15:25 Anisocytosis 2+ 11/16/21 15:25 Microcytosis Not Reportable 11/16/21 15:25 Macrocytosis Not Reportable 11/16/21 15:25 Spherocytes Not Reportable 11/16/21 15:25 Pappenheimer Bodies Not Reportable 11/16/21 15:25 Sickle Cells Not Reportable 11/16/21 15:25 Target Cells 2+ 11/16/21 15:25 Tear Drop Cells Not Reportable 11/16/21 15:25 Ovalocytes Not Reportable 11/16/21 15:25 Helmet Cells Not Reportable 11/16/21 15:25 Odonnell-Driftwood Bodies Not Reportable 11/16/21 15:25 [place] Rings Not Reportable 11/16/21 15:25 Malcom Cells Not Reportable 11/16/21 15:25 Bite Cells Not Reportable 11/16/21 15:25 Crenated Cell Not Reportable 11/16/21 15:25 Elliptocytes Not Reportable 11/16/21 15:25 Acanthocytes (Spur) Not Reportable 11/16/21 15:25 Rouleaux Not Reportable 11/16/21 15:25 Hemoglobin C Crystals Not Reportable 11/16/21 15:25 Schistocytes Not Reportable 11/16/21 15:25 Malaria parasites Not Reportable 11/16/21 15:25 Godfrey Bodies Not Reportable 11/16/21 15:25 Hem Pathologist Commnt No 11/16/21 15:25 PT 18.6 Sec. (12.2-14.9) H 11/03/21 22:32 INR 1.40 (0.87-1.13) H 11/03/21 22:32 APTT 28.9 Sec. (24.2-36.6) 11/03/21 22:32 D-Dimer 2655.00 ng/mlDDU (0-234) H 11/11/21 04:28 ABG pH 7.449 pH Units (7.350-7.450) 11/21/21 16:00 ABG pCO2 32.1 mm Hg 11/21/21 16:00 ABG pO2 114.2 mm Hg (80.0-90.0) H 11/21/21 16:00 ABG HCO3 21.8 mmol/L (20.0-26.0) 11/21/21 16:00 ABG O2 Saturation 98.3 % (95.0-99.0) 11/21/21 16:00 ABG O2 Content 12.5 (0.0-44) 11/21/21 16:00 ABG Base Excess -1.7 mmol/L (-2.0-3.0) 11/21/21 16:00 ABG Hemoglobin 9.1 gm/dl (12.0-16.0) L 11/21/21 16:00 ABG Carboxyhemoglobin 1.9 % (0.0-5.0) 11/21/21 16:00 ABG Methemoglobin 0.5 % (0.0-1.5) 11/21/21 16:00 Oxyhemoglobin 96.0 % (95.0-99.0) 11/21/21 16:00 FiO2 30 % 11/21/21 16:00 Sodium 138 mmol/L (137-145) 11/24/21 04:13 Potassium 4.6 mmol/L (3.6-5.0) 11/24/21 04:13 Chloride 103.8 mmol/L (98-107) 11/24/21 04:13 Carbon Dioxide 23 mmol/L (22-30) 11/24/21 04:13 Anion Gap 16 mmol/L 11/24/21 04:13 BUN 31 mg/dL (7-17) H 11/24/21 04:13 Creatinine 1.0 mg/dL (0.6-1.2) 11/24/21 04:13 Estimated GFR 53 ml/min 11/24/21 04:13 BUN/Creatinine Ratio 31 % 11/24/21 04:13 Glucose 101 mg/dL (65-100) H 11/24/21 04:13 POC Glucose 110 mg/dL (70-105) H 11/24/21 17:57 Lactic Acid 3.70 mmol/L (0.7-2.0) H* 11/03/21 22:32 Calcium 7.7 mg/dL (8.4-10.2) L 11/24/21 04:13 Phosphorus 3.10 mg/dL (2.5-4.5) 11/24/21 04:13 Magnesium 1.80 mg/dL (1.7-2.3) 11/24/21 04:13 Ferritin 52.6 ng/mL (10.0-200.0) 11/05/21 06:11 Total Bilirubin 0.50 mg/dL (0.1-1.2) 11/17/21 05:56 Direct Bilirubin < 0.2 mg/dL (0-0.2) 11/11/21 04:28 Indirect Bilirubin 0.1 mg/dL 11/11/21 04:28 AST 36 units/L (5-40) 11/17/21 05:56 ALT 47 units/L (7-56) 11/17/21 05:56 Alkaline Phosphatase 107 units/L (35-129) 11/17/21 05:56 Ammonia 42.0 umol/L (25-60) 11/10/21 14:08 Lactate Dehydrogenase 187 units/L (91-180) H 11/05/21 06:11 Troponin T 0.033 ng/mL (0.00-0.029) H 11/05/21 06:11 C-Reactive Protein 22.20 mg/dL (0.00-1.30) H 11/05/21 06:11 NT-Pro-B Natriuret Pep 7895 pg/mL (0-900) H 11/03/21 22:32 Total Protein 5.1 g/dL (6.3-8.2) L 11/17/21 05:56 Albumin 2.2 g/dL (3.9-5) L 11/17/21 05:56 Albumin/Globulin Ratio 0.8 % 11/17/21 05:56 Triglycerides 66 mg/dL (2-149) 11/03/21 22:32 Cholesterol 80 mg/dL (50-199) 11/03/21 22:32 LDL Cholesterol Direct 34 mg/dL (50-130) L 11/03/21 22:32 HDL Cholesterol 42 mg/dL (40-59) 11/03/21 22:32 Cholesterol/HDL Ratio 1.90 % 11/03/21 22:32 Vitamin B12 1823 pg/mL (211-911) H 11/10/21 14:08 TSH 1.510 mlU/mL (0.270-4.200) 11/10/21 14:08 Urine Color Yellow (Yellow) 11/11/21 09:00 Urine Turbidity Slightly-cloudy (Clear) 11/11/21 09:00 Urine pH 5.0 (5.0-7.0) 11/11/21 09:00 Ur Specific [place] 1.009 (1.003-1.030) 11/11/21 09:00 Urine Protein <15 mg/dl mg/dL (Negative) 11/11/21 09:00 Urine Glucose (UA) Neg mg/dL (Negative) 11/11/21 09:00 Urine Ketones Neg mg/dL (Negative) 11/11/21 09:00 Urine Blood Mod (Negative) 11/11/21 09:00 Urine Nitrite Neg (Negative) 11/11/21 09:00 Urine Bilirubin Neg (Negative) 11/11/21 09:00 Urine Urobilinogen < 2.0 mg/dL (<2.0) 11/11/21 09:00 Ur Leukocyte Esterase Neg (Negative) 11/11/21 09:00 Urine WBC (Auto) < 1.0 /HPF (0.0-6.0) 11/11/21 09:00 Urine RBC (Auto) < 1.0 /HPF (0.0-6.0) 11/11/21 09:00 Coronavirus (PCR) Negative (Negative) 11/10/21 08:30 Blood Type O POSITIVE 11/18/21 10:45 Antibody Screen Negative 11/18/21 10:45 Crossmatch See Detail 11/18/21 10:45 Gamble/IV: Voiding Method Indwelling Catheter Active Medications - Current Medications Current Medications: Generic Name Dose Route Start Last Admin Trade Name Freq PRN Reason Stop Dose Admin Acetaminophen 650 mg 11/04/21 02:03 11/23/21 16:26 Acetaminophen 325 Mg Tab PO 650 mg Q6H PRN Administration Pain MILD(1-3)/Fever >100.5/RODRIGUEZ Hydrocodone Bitart/Acetaminophen 1 each 11/21/21 10:00 11/24/21 13:19 Hydrocodone/Acetaminophen 10-325mg Tab FEEDTUBE 1 each TID YOSSI Administration Lipase/Protease/Amylase 1 each 11/08/21 11:09 Lipase 10,500/Protease 25,000/Amylase 43,750 (Units) Dr Lema FEEDTUBE PRN PRN For Clogged Feeding Tube Buspirone HCl 7.5 mg 11/17/21 22:00 11/24/21 09:07 Buspirone 5 Mg Tab PO 7.5 mg BID YOSSI Administration Dextrose 0 ml 11/10/21 10:52 11/21/21 16:27 Dextrose 10% *Hypoglycemia IV 50 ml PRN PRN Administration Hypoglycemia Fentanyl 1 applic 11/17/21 13:00 11/23/21 09:29 Fentanyl 25 Mcg/Hr Patch 72hr TD 1 applic Q3D YOSSI Administration Hydrophilic Ointment 1 applic 11/06/21 04:02 Lip Therapy Vaseline TP Q2HR PRN Dry Lips NORepinephrine/NS 8 MG-250 ML 8 mg in 250 mls @ 3.75 mls/hr 11/05/21 09:00 11/18/21 03:26 Norepinephrine/Ns 8 Mg-250 Ml (Double Conc) IV 0 mcg/min TITRATE YOSSI 0 mls/hr Titration Protocol 2 MCG/MIN Fentanyl Citrate 2,000 mcg in 100 mls @ 3.12 mls/hr 11/17/21 13:00 11/22/21 18:04 Fentanyl Drip Premix IV 0 mcg/kg/hr TITR YOSSI 0 mls/hr Titration Protocol 1 MCG/KG/HR Insulin Human Lispro 0 unit 11/06/21 12:00 11/24/21 18:01 Insulin Lispro 100 Unit/Ml SUB-Q Not Given Q6HR YOSSI Protocol Lansoprazole 30 mg 11/24/21 22:00 Lansoprazole 30 Mg Solutab FEEDTUBE BID YOSSI Levothyroxine Sodium 125 mcg 11/05/21 07:00 11/24/21 06:38 Levothyroxine 125 Mcg Tab PO 125 mcg DAILY@0600 YOSSI Administration Magnesium Hydroxide 30 ml 11/04/21 02:03 Magnesium Hydroxide (Mom) Oral Liqd Udc PO Q4H PRN Constipation Metoprolol Tartrate 12.5 mg 11/21/21 10:00 11/24/21 09:07 Metoprolol Tartrate 25 Mg Tab PO 12.5 mg BID YOSSI Administration Multi-Ingred Cream/Lotion/Oil/Oint 1 applic 11/06/21 04:02 Mineral Oil/Petrolatum, White Ophth Oint 3.5 Gm OU Q4HR PRN Dry Eye(s) Ondansetron HCl 4 mg 11/04/21 02:03 11/05/21 15:48 Ondansetron 4 Mg/2 Ml Inj IV 4 mg Q8H PRN Administration Nausea And Vomiting Pravastatin Sodium 20 mg 11/18/21 22:00 11/23/21 21:09 Pravastatin 20 Mg Tab PO 20 mg QHS YOSSI Administration Quetiapine Fumarate 50 mg 11/20/21 22:00 11/24/21 09:07 Quetiapine 25 Mg Tab PO 50 mg BID [facility] Administration Senna 17.6 mg 11/08/21 22:00 11/24/21 09:08 Sennosides Oral Liqd 8.8 Mg/5 Ml Oral Liqd PO Not Given Q12HR YOSSI Simple Syrup 15 ml 11/08/21 11:09 Simple Syrup 15 Ml FEEDTUBE PRN PRN Hypoglycemia Simple Syrup 30 ml 11/08/21 11:09 Simple Syrup 15 Ml FEEDTUBE PRN PRN Hypoglycemia Sodium Bicarbonate 325 mg 11/08/21 11:09 Sodium Bicarbonate 325 Mg Tab FEEDTUBE PRN PRN For Clogged Feeding Tube Sodium Chloride 10 ml 11/04/21 10:00 11/24/21 09:08 Sodium Chloride 0.9% 10 Ml Flush Syringe IV 10 ml BID YOSSI Administration Sodium Chloride 10 ml 11/04/21 02:03 Sodium Chloride 0.9% 10 Ml Flush Syringe IV PRN PRN LINE FLUSH Sodium Chloride 10 ml 11/10/21 09:57 11/17/21 20:47 Sodium Chloride 0.9% 50 Ml Ivpb IV 10 ml PRN PRN Administration FLUSH Sucralfate 1 gm 11/18/21 16:30 11/24/21 16:43 Sucralfate 1 Gm/10 Ml Oral Liqd PO 1 gm ACHS YOSSI Administration Nutrition/Malnutrition Assess - Dietary Evaluation Nutrition/Malnutrition Findings: Nutrition Notes Start: 11/04/21 17:16 Freq: Status: Active Protocol: Document 11/24/21 14:48 MEARMEN (Rec: 11/24/21 14:56 MEALL [id number]) Nutrition Notes Initial or Follow up Reassessment Current Diagnosis Diabetes,Hypertension,Heart Failure,Respiratory Failure Other Pertinent Diagnosis Bilat pneu, (R) pneumothorax, Septic shock Current Diet TF - Glucerna 1.2 at 42ml/hr Labs/Tests Reviewed Pertinent Medications Sucralfate Height 5 ft Weight 62.4 kg [place] Body Weight (kg) 45.45 BMI 26.9 Weight Status Appropriate Subjective/Other Information Observed TF infusing at goal rate. Pt remains on vent support. Trach/PEG placement pending. Percent of energy/protein needs met: 100% energy 81% pro Burn Absent Trauma Absent #1 Nutrition Diagnosis Inadequate oral intake Diagnosis Progress(for reassessment Continues documentation) Is patient on ventilator? Yes Is Patient Ambulatory and/or Out of Bed No REE-([facility]-confined to bed) 1207.824 Calculation Used for Recommendations [facility] Additional Notes Pro needs 1.2-2 g/k-125g/ day Fluid needs 1ml/kcal Nutrition Intervention Nutrition Support: Continue Glucerna 1.2 at 42ml/ hr with 75ml water flush q4h. Kcal 1,210 Protein (gm) 60 Carbohydrates (gm) 115 Fat (gm) 60 Fluid (mL) 811 Fiber (gm) 16 Goal #1 TF tolerance Goal #2 TF to meet at least 75% energy and pro needs Follow-Up By: 12/01/21 Additional Comments F/U: stable TF, trach/PEG placement, vent status, wt <LEAH ALFONSO - Last Filed: 12/02/21 07:16> Assessment and Plan Assessment and plan: I saw and evaluated the patient. I agree with the findings and the plan of care as documented in the Nurse Practitioner's~note, with the following corrections and additions. Hospitalist Physical - Constitutional Vitals: Temp Pulse Resp BP Pulse Ox 98.3 F 72 13 88/34 96 12/02/21 04:00 12/02/21 06:00 12/02/21 06:00 12/02/21 06:00 12/02/21 06:00 HEART Score - HEART Score Troponin: Troponin T 0.045 ng/mL (0.00-0.029) H 11/29/21 20:15 Results - Labs CBC & Chem 7: 12/02/21 04:20 12/02/21 04:20 Labs: Laboratory Last Values WBC 7.9 K/mm3 (4.5-11.0) 12/02/21 04:20 RBC 2.92 M/mm3 (3.65-5.03) L 12/02/21 04:20 Hgb 7.7 gm/dl (10.1-14.3) L 12/02/21 04:20 Hct 24.3 % (30.3-42.9) L 12/02/21 04:20 MCV 83 fl (79-97) 12/02/21 04:20 MCH 26 pg (28-32) L 12/02/21 04:20 MCHC 32 % (30-34) 12/02/21 04:20 RDW 20.5 % (13.2-15.2) H 12/02/21 04:20 Plt Count 182 K/mm3 (140-440) 12/02/21 04:20 Add Manual Diff Complete 11/16/21 15:25 Total Counted 100 11/16/21 15:25 Seg Neutrophils % Scada Engineer 11/06/21 15:50 Seg Neuts % (Manual) 87.0 % (40.0-70.0) H 11/16/21 15:25 Band Neutrophils % 0 % 11/16/21 15:25 Lymphocytes % (Manual) 8.0 % (13.4-35.0) L 11/16/21 15:25 Reactive Lymphs % (Man) 0 % 11/16/21 15:25 Monocytes % (Manual) 5.0 % (0.0-7.3) 11/16/21 15:25 Eosinophils % (Manual) 0 % (0.0-4.3) 11/16/21 15:25 Basophils % (Manual) 0 % (0.0-1.8) 11/16/21 15:25 Metamyelocytes % 0 % 11/16/21 15:25 Myelocytes % 0 % 11/16/21 15:25 Promyelocytes % 0 % 11/16/21 15:25 Blast Cells % 0 % 11/16/21 15:25 Nucleated RBC % Not Reportable 11/16/21 15:25 Seg Neutrophils # Man 15.0 K/mm3 (1.8-7.7) H 11/16/21 15:25 Band Neutrophils # 0.0 K/mm3 11/16/21 15:25 Lymphocytes # (Manual) 1.4 K/mm3 (1.2-5.4) 11/16/21 15:25 Abs React Lymphs (Man) 0.0 K/mm3 11/16/21 15:25 Monocytes # (Manual) 0.9 K/mm3 (0.0-0.8) H 11/16/21 15:25 Eosinophils # (Manual) 0.0 K/mm3 (0.0-0.4) 11/16/21 15:25 Basophils # (Manual) 0.0 K/mm3 (0.0-0.1) 11/16/21 15:25 Metamyelocytes # 0.0 K/mm3 11/16/21 15:25 Myelocytes # 0.0 K/mm3 11/16/21 15:25 Promyelocytes # 0.0 K/mm3 11/16/21 15:25 Blast Cells # 0.0 K/mm3 11/16/21 15:25 WBC Morphology Not Reportable 11/16/21 15:25 Hypersegmented Neuts Not Reportable 11/16/21 15:25 Hyposegmented Neuts Not Reportable 11/16/21 15:25 Hypogranular Neuts Not Reportable 11/16/21 15:25 Smudge Cells Not Reportable 11/16/21 15:25 Toxic Granulation Not Reportable 11/16/21 15:25 Toxic Vacuolation Not Reportable 11/16/21 15:25 Dohle Bodies Not Reportable 11/16/21 15:25 Pelger-Huet Anomaly Not Reportable 11/16/21 15:25 Irina Rods Not Reportable 11/16/21 15:25 Platelet Estimate Consistent w auto 11/16/21 15:25 Clumped Platelets Rare 11/16/21 15:25 Plt Clumps, EDTA Not Reportable 11/16/21 15:25 Large Platelets Not Reportable 11/16/21 15:25 Giant Platelets Not Reportable 11/16/21 15:25 Platelet Satelliting Not Reportable 11/16/21 15:25 Plt Morphology Comment Not Reportable 11/16/21 15:25 RBC Morphology Not Reportable 11/16/21 15:25 Dimorphic RBCs Not Reportable 11/16/21 15:25 Polychromasia Not Reportable 11/16/21 15:25 Hypochromasia 2+ 11/16/21 15:25 Poikilocytosis Not Reportable 11/16/21 15:25 Anisocytosis 2+ 11/16/21 15:25 Microcytosis Not Reportable 11/16/21 15:25 Macrocytosis Not Reportable 11/16/21 15:25 Spherocytes Not Reportable 11/16/21 15:25 Pappenheimer Bodies Not Reportable 11/16/21 15:25 Sickle Cells Not Reportable 11/16/21 15:25 Target Cells 2+ 11/16/21 15:25 Tear Drop Cells Not Reportable 11/16/21 15:25 Ovalocytes Not Reportable 11/16/21 15:25 Helmet Cells Not Reportable 11/16/21 15:25 Odonnell-Driftwood Bodies Not Reportable 11/16/21 15:25 [place] Rings Not Reportable 11/16/21 15:25 [place] Cells Not Reportable 11/16/21 15:25 Bite Cells Not Reportable 11/16/21 15:25 Crenated Cell Not Reportable 11/16/21 15:25 Elliptocytes Not Reportable 11/16/21 15:25 Acanthocytes (Spur) Not Reportable 11/16/21 15:25 Rouleaux Not Reportable 11/16/21 15:25 Hemoglobin C Crystals Not Reportable 11/16/21 15:25 Schistocytes Not Reportable 11/16/21 15:25 Malaria parasites Not Reportable 11/16/21 15:25 Godfrey Bodies Not Reportable 11/16/21 15:25 Hem Pathologist Commnt No 11/16/21 15:25 PT 16.9 Sec. (12.2-14.9) H 11/26/21 05:00 INR 1.24 (0.87-1.13) H 11/26/21 05:00 APTT 29.2 Sec. (24.2-36.6) 11/26/21 05:00 D-Dimer 2655.00 ng/mlDDU (0-234) H 11/11/21 04:28 ABG pH 7.449 pH Units (7.350-7.450) 11/21/21 16:00 ABG pCO2 32.1 mm Hg 11/21/21 16:00 ABG pO2 114.2 mm Hg (80.0-90.0) H 11/21/21 16:00 ABG HCO3 21.8 mmol/L (20.0-26.0) 11/21/21 16:00 ABG O2 Saturation 98.3 % (95.0-99.0) 11/21/21 16:00 ABG O2 Content 12.5 (0.0-44) 11/21/21 16:00 ABG Base Excess -1.7 mmol/L (-2.0-3.0) 11/21/21 16:00 ABG Hemoglobin 9.1 gm/dl (12.0-16.0) L 11/21/21 16:00 ABG Carboxyhemoglobin 1.9 % (0.0-5.0) 11/21/21 16:00 ABG Methemoglobin 0.5 % (0.0-1.5) 11/21/21 16:00 Oxyhemoglobin 96.0 % (95.0-99.0) 11/21/21 16:00 FiO2 30 % 11/21/21 16:00 Sodium 135 mmol/L (137-145) L 12/02/21 04:20 Potassium 3.8 mmol/L (3.6-5.0) 12/02/21 04:20 Chloride 99.2 mmol/L (98-107) 12/02/21 04:20 Carbon Dioxide 29 mmol/L (22-30) 12/02/21 04:20 Anion Gap 11 mmol/L 12/02/21 04:20 BUN 26 mg/dL (7-17) H 12/02/21 04:20 Creatinine 0.6 mg/dL (0.6-1.2) 12/02/21 04:20 Estimated GFR > 60 ml/min 12/02/21 04:20 BUN/Creatinine Ratio 43 % 12/02/21 04:20 Glucose 121 mg/dL (65-100) H 12/02/21 04:20 POC Glucose 97 mg/dL (70-105) 12/02/21 05:29 Lactic Acid 3.70 mmol/L (0.7-2.0) H* 11/03/21 22:32 Calcium 7.4 mg/dL (8.4-10.2) L 12/02/21 04:20 Phosphorus 3.10 mg/dL (2.5-4.5) 12/02/21 04:20 Magnesium 2.00 mg/dL (1.7-2.3) 12/02/21 04:20 Ferritin 52.6 ng/mL (10.0-200.0) 11/05/21 06:11 Total Bilirubin 0.50 mg/dL (0.1-1.2) 11/17/21 05:56 Direct Bilirubin < 0.2 mg/dL (0-0.2) 11/11/21 04:28 Indirect Bilirubin 0.1 mg/dL 11/11/21 04:28 AST 36 units/L (5-40) 11/17/21 05:56 ALT 47 units/L (7-56) 11/17/21 05:56 Alkaline Phosphatase 107 units/L (35-129) 11/17/21 05:56 Ammonia 42.0 umol/L (25-60) 11/10/21 14:08 Lactate Dehydrogenase 187 units/L (91-180) H 11/05/21 06:11 Troponin T 0.045 ng/mL (0.00-0.029) H 11/29/21 20:15 C-Reactive Protein 22.20 mg/dL (0.00-1.30) H 11/05/21 06:11 NT-Pro-B Natriuret Pep 7895 pg/mL (0-900) H 11/03/21 22:32 Total Protein 5.1 g/dL (6.3-8.2) L 11/17/21 05:56 Albumin 2.2 g/dL (3.9-5) L 11/17/21 05:56 Albumin/Globulin Ratio 0.8 % 11/17/21 05:56 Triglycerides 59 mg/dL (2-149) 11/29/21 20:15 Cholesterol 74 mg/dL (50-199) 11/29/21 20:15 LDL Cholesterol Direct 25 mg/dL (50-130) L 11/29/21 20:15 HDL Cholesterol 41 mg/dL (40-59) 11/29/21 20:15 Cholesterol/HDL Ratio 1.80 % 11/29/21 20:15 Vitamin B12 1823 pg/mL (211-911) H 11/10/21 14:08 TSH 1.510 mlU/mL (0.270-4.200) 11/10/21 14:08 Urine Color Yellow (Yellow) 11/11/21 09:00 Urine Turbidity Slightly-cloudy (Clear) 11/11/21 09:00 Urine pH 5.0 (5.0-7.0) 11/11/21 09:00 Ur Specific [place] 1.009 (1.003-1.030) 11/11/21 09:00 Urine Protein <15 mg/dl mg/dL (Negative) 11/11/21 09:00 Urine Glucose (UA) Neg mg/dL (Negative) 11/11/21 09:00 Urine Ketones Neg mg/dL (Negative) 11/11/21 09:00 Urine Blood Mod (Negative) 11/11/21 09:00 Urine Nitrite Neg (Negative) 11/11/21 09:00 Urine Bilirubin Neg (Negative) 11/11/21 09:00 Urine Urobilinogen < 2.0 mg/dL (<2.0) 11/11/21 09:00 Ur Leukocyte Esterase Neg (Negative) 11/11/21 09:00 Urine WBC (Auto) < 1.0 /HPF (0.0-6.0) 11/11/21 09:00 Urine RBC (Auto) < 1.0 /HPF (0.0-6.0) 11/11/21 09:00 Coronavirus (PCR) Negative (Negative) 11/10/21 08:30 Blood Type O POSITIVE 11/18/21 10:45 Antibody Screen Negative 11/18/21 10:45 Crossmatch See Detail 11/18/21 10:45 Gamble/IV: Voiding Method Indwelling Catheter Active Medications - Current Medications Current Medications: Generic Name Dose Route Start Last Admin Trade Name Freq PRN Reason Stop Dose Admin Acetaminophen 650 mg 11/04/21 02:03 11/23/21 16:26 Acetaminophen 325 Mg Tab PO 650 mg Q6H PRN Administration Pain MILD(1-3)/Fever >100.5/RODRIGUEZ Hydrocodone Bitart/Acetaminophen 1 each 11/21/21 10:00 12/01/21 20:15 Hydrocodone/Acetaminophen 10-325mg Tab FEEDTUBE 1 each TID YOSSI Administration Lipase/Protease/Amylase 1 each 11/08/21 11:09 Lipase 10,500/Protease 25,000/Amylase 43,750 (Units) Dr Lema FEEDTUBE PRN PRN For Clogged Feeding Tube Buspirone HCl 7.5 mg 11/17/21 22:00 12/01/21 22:24 Buspirone 5 Mg Tab PO 7.5 mg BID YOSSI Administration Dextrose 0 ml 11/10/21 10:52 11/21/21 16:27 Dextrose 10% *Hypoglycemia IV 50 ml PRN PRN Administration Hypoglycemia Fentanyl 1 applic 11/17/21 13:00 11/29/21 09:55 Fentanyl 25 Mcg/Hr Patch 72hr TD 1 applic Q3D YOSSI Administration Furosemide 20 mg 12/01/21 20:00 12/01/21 22:25 Furosemide 20 Mg/2 Ml Inj IV 12/03/21 23:59 20 mg QDAY YOSSI Administration Gabapentin 100 mg 12/01/21 10:00 12/01/21 10:41 Gabapentin 100 Mg Cap PO 100 mg QDAY YOSSI Administration Hydrophilic Ointment 1 applic 11/06/21 04:02 Lip Therapy Vaseline TP Q2HR PRN Dry Lips NORepinephrine/NS 8 MG-250 ML 8 mg in 250 mls @ 3.75 mls/hr 11/29/21 00:00 11/30/21 08:17 Norepinephrine/Ns 8 Mg-250 Ml (Double Conc) IV 0 mcg/min TITRATE YOSSI 0 mls/hr Titration Protocol 2 MCG/MIN Insulin Human Lispro 0 unit 11/06/21 12:00 12/02/21 00:30 Insulin Lispro 100 Unit/Ml SUB-Q Not Given Q6HR YOSSI Protocol Lansoprazole 30 mg 11/24/21 22:00 12/01/21 22:25 Lansoprazole 30 Mg Solutab FEEDTUBE 30 mg BID YOSSI Administration Levothyroxine Sodium 125 mcg 11/05/21 07:00 12/02/21 05:13 Levothyroxine 125 Mcg Tab PO 125 mcg DAILY@0600 YOSSI Administration Magnesium Hydroxide 30 ml 11/04/21 02:03 Magnesium Hydroxide (Mom) Oral Liqd Udc PO Q4H PRN Constipation Metoprolol Tartrate 12.5 mg 11/21/21 10:00 12/01/21 22:26 Metoprolol Tartrate 25 Mg Tab PO 12.5 mg BID YOSSI Administration Multi-Ingred Cream/Lotion/Oil/Oint 1 applic 11/06/21 04:02 Mineral Oil/Petrolatum, White Ophth Oint 3.5 Gm OU Q4HR PRN Dry Eye(s) Nitroglycerin 0.4 mg 11/30/21 11:36 Nitroglycerin 0.4 Mg Tab Subl SL .Q5MIN PRN Chest Pain Ondansetron HCl 4 mg 11/04/21 02:03 11/05/21 15:48 Ondansetron 4 Mg/2 Ml Inj IV 4 mg Q8H PRN Administration Nausea And Vomiting Pravastatin Sodium 20 mg 11/18/21 22:00 11/30/21 21:47 Pravastatin 20 Mg Tab PO 20 mg QHS YOSSI Administration Quetiapine Fumarate 50 mg 12/01/21 22:00 12/01/21 22:27 Quetiapine 25 Mg Tab PO 50 mg QHS YOSSI Administration Senna 17.6 mg 11/08/21 22:00 12/01/21 22:26 Sennosides Oral Liqd 8.8 Mg/5 Ml Oral Liqd PO 17.6 mg Q12HR YOSSI Administration Simple Syrup 15 ml 11/08/21 11:09 Simple Syrup 15 Ml FEEDTUBE PRN PRN Hypoglycemia Simple Syrup 30 ml 11/08/21 11:09 Simple Syrup 15 Ml FEEDTUBE PRN PRN Hypoglycemia Sodium Bicarbonate 325 mg 11/08/21 11:09 Sodium Bicarbonate 325 Mg Tab FEEDTUBE PRN PRN For Clogged Feeding Tube Sodium Chloride 10 ml 11/04/21 10:00 12/01/21 22:28 Sodium Chloride 0.9% 10 Ml Flush Syringe IV 10 ml BID YOSSI Administration Sodium Chloride 10 ml 11/04/21 02:03 Sodium Chloride 0.9% 10 Ml Flush Syringe IV PRN PRN LINE FLUSH Sodium Chloride 10 ml 11/10/21 09:57 11/17/21 20:47 Sodium Chloride 0.9% 50 Ml Ivpb IV 10 ml PRN PRN Administration FLUSH Sucralfate 1 gm 11/18/21 16:30 12/01/21 22:25 Sucralfate 1 Gm/10 Ml Oral Liqd PO 1 gm ACHS YOSSI Administration Nutrition/Malnutrition Assess - Dietary Evaluation Nutrition/Malnutrition Findings: Nutrition Notes Start: 11/04/21 17:16 Freq: Status: Active Protocol: Document 12/01/21 18:39 ISABELL (Rec: 12/01/21 19:19 ISABELL [id number]) Nutrition Notes Initial or Follow up Reassessment Current Diagnosis Decubitus(Pressure Ulcer), Diabetes,Hypertension, Respiratory Failure Other Pertinent Diagnosis Bilateral Pneumonia and Pleural Effusion, R- Pneumothorax, CHF-EF, GI Bleed . Current Diet TF-Vital AF 1.2 @ 40 ml/hr ( since 11/30) Labs/Tests 12/01: Na 136, BUN 24, Glu 117 , Ca 7.5, Mg 1.6. Pertinent Medications 12/01: Levothyroxine, others nutritionally unremarkable. Height 5 ft Weight 62.4 kg [place] Body Weight (kg) 45.45 BMI 26.9 Weight change and time frame No body weight change reported . Weight Status Overweight Subjective/Other Information RD consult for routine F/U on TF assessment. Glucerna switched to Vital AF due to out of stock situation. PEG tube placed on 11/26, well tolerated. Pt still on Mechanical Ventilation. Pt has missing teerth, according to Physical Assessment History notes. Case Management note 12/01: Patient officially referred to [facility] for aggressive ventilator weaning. Percent of energy/protein needs met: Prescribed Vital AF 1.2 Tamir @ 40 ml/hr provides for energy/ protein needs (1,150 Kcal/72 g ) during LOS, 95% Kcal; 96% AA . Burn Absent Trauma Absent GI Symptoms Other Difficulty In Swallowing,Chewing Food Allergy No Skin Integrity/Comment Lower Extremities Pressure Ulcer. Current % PO Other Minimum of two criteria No #1 Nutrition Diagnosis Inadequate oral intake Diagnosis Progress(for reassessment Continues documentation) Is patient on ventilator? Yes Is Patient Ambulatory and/or Out of Bed No REE-([facility]-confined to bed) 1207.824 Calculation Used for Recommendations [facility] Additional Notes Protein: 1.2-2 g/Kg; 75-125 g/ day. Fluids: 1 ml/Kcal, or as per MD. Nutrition Intervention Nutrition Support: Switch to Vital AF 1.2 Tamir @ 40 ml/hr. Flush: 70 ml water Q 4 hr, or as per MD. Kcal 1,150 Protein (gm) 72 Carbohydrates (gm) 106 Fat (gm) 52 Fluid (mL) 777 Fiber (gm) 5 % RDI: 95% Kcal; 96% AA. Goal #1 Provide at least 75% of energy /protein needs through Enteral Feeding during LOS. Goal #2 Maintain body weight within +/ -3% of admission body weight during LOS. Follow-Up By: 12/08/21 Additional Comments Continue monitoring TF tolerance and BM.
[2021-11-24] MEDS: LANSOPRAZOLE 30 MG SOLUTAB FEEDTUBE SCH (21:29)
[2021-11-24] MEDS: PRAVASTATIN 20 MG TAB PO SCH (21:33)
[2021-11-25] MEDS: INSULIN LISPRO 100 UNIT/ML SUB-Q SCH ×3 (02:53→11:41)
[2021-11-25] MEDS ORDERED: LORazepam 2 MG/ML VIAL IV ONE (03:24)
[2021-11-25] MEDS: LEVOTHYROXINE 125 MCG TAB PO SCH (05:00)
[2021-11-25 05:41] LABS: Hematocrit 26.6 % (30.3-42.9); Hemoglobin 8.2 gm/dl (10.1-14.3); Mean Corpuscular HGB Conc 31 % (30-34); Mean Corpuscular Volume 85 fl (79-97); Platelet Count 244 K/mm3 (140-440); Red Blood Count 3.11 M/mm3 (3.65-5.03)
[2021-11-25 05:43] LABS: Red Cell Distribution Width 21.3 % (13.2-15.2)
[2021-11-25 05:53] LABS: Calcium 8.2 mg/dL (8.4-10.2)
[2021-11-25] MEDS: LANSOPRAZOLE 30 MG SOLUTAB FEEDTUBE SCH ×2 (10:05→21:26)
[2021-11-25] MEDS: busPIRone 5 MG TAB PO SCH ×2 (10:05→21:25)
[2021-11-25] MEDS: QUEtiapine 25 MG TAB PO SCH ×2 (10:05→21:27)
[2021-11-25] MEDS: SUCRALFATE 1 GM/10 ML ORAL LIQD PO SCH ×3 (10:06→21:26)
[2021-11-25] MEDS: METOPROLOL TARTRATE 25 MG TAB PO SCH ×2 (10:06→21:28)
--- NOTE | 2021-11-25 11:30 | Progress Note ---
Assessment and Plan 81 yo F with 1. VDRF 2. PNA 3. sepsis Plan: 1. Trach/Peg scheduled for today but TF not held. Will move to tomorrow. 2. vent management per ICU team 3. hold TF after MN tonight 4. Discussed procedures with . Consent obtained. Plan d/w patient's RN. Thank you for this consultation. Please call with any questions or concerns. Evaluation and treatment of this patient was during the time of the national and state emergency arising from COVID19 coronavirus pandemic. Treatment and procedures performed meet the current and available best practice and guidelines for patient during the COVID pandemic. Subjective Date of service: 11/25/21 Narrative: Pt seen and examined. No change in overall condition. Not tolerating PSV trials. Objective Vital Signs - 12hr 11/24/21 11/24/21 11/25/21 23:30 23:53 00:00 Temperature 98.3 F Pulse Rate 67 70 71 Pulse Rate [ 90 From Monitor] Pulse Rate [ Left Dorsalis Pedis] Pulse Rate [ Left Radial] Pulse Rate [ Right Dorsalis Pedis] Pulse Rate [ Right Radial] Respiratory 14 14 14 Rate Blood Pressure 111/43 111/43 122/54 O2 Sat by Pulse 97 99 99 Oximetry 11/25/21 11/25/21 11/25/21 00:07 00:30 01:00 Temperature Pulse Rate 67 72 71 Pulse Rate [ From Monitor] Pulse Rate [ Left Dorsalis Pedis] Pulse Rate [ Left Radial] Pulse Rate [ Right Dorsalis Pedis] Pulse Rate [ Right Radial] Respiratory 14 14 Rate Blood Pressure 111/43 131/51 117/45 O2 Sat by Pulse 97 98 97 Oximetry 11/25/21 11/25/21 11/25/21 01:31 02:00 02:31 Temperature Pulse Rate 85 98 H 101 H Pulse Rate [ From Monitor] Pulse Rate [ Left Dorsalis Pedis] Pulse Rate [ Left Radial] Pulse Rate [ Right Dorsalis Pedis] Pulse Rate [ Right Radial] Respiratory 17 20 32 H Rate Blood Pressure 151/77 170/80 192/101 O2 Sat by Pulse 100 95 95 Oximetry 11/25/21 11/25/21 11/25/21 03:00 03:30 04:00 Temperature 98.4 F Pulse Rate 111 H 105 H 87 Pulse Rate [ 74 From Monitor] Pulse Rate [ Left Dorsalis Pedis] Pulse Rate [ Left Radial] Pulse Rate [ Right Dorsalis Pedis] Pulse Rate [ Right Radial] Respiratory 14 17 14 Rate Blood Pressure 190/122 183/93 102/53 O2 Sat by Pulse 92 77 L 100 Oximetry 11/25/21 11/25/21 11/25/21 04:27 04:30 05:00 Temperature Pulse Rate 80 80 74 Pulse Rate [ From Monitor] Pulse Rate [ Left Dorsalis Pedis] Pulse Rate [ Left Radial] Pulse Rate [ Right Dorsalis Pedis] Pulse Rate [ Right Radial] Respiratory 14 14 Rate Blood Pressure 102/53 102/49 101/50 O2 Sat by Pulse 100 99 99 Oximetry 11/25/21 11/25/21 11/25/21 05:30 06:00 06:30 Temperature Pulse Rate 72 68 66 Pulse Rate [ From Monitor] Pulse Rate [ Left Dorsalis Pedis] Pulse Rate [ Left Radial] Pulse Rate [ Right Dorsalis Pedis] Pulse Rate [ Right Radial] Respiratory 14 14 14 Rate Blood Pressure 100/48 98/47 104/53 O2 Sat by Pulse 100 100 100 Oximetry 11/25/21 11/25/21 11/25/21 07:00 07:30 08:00 Temperature 96.4 F L Pulse Rate 65 68 94 H Pulse Rate [ 79 From Monitor] Pulse Rate [ 79 Left Dorsalis Pedis] Pulse Rate [ 79 Left Radial] Pulse Rate [ 79 Right Dorsalis Pedis] Pulse Rate [ 79 Right Radial] Respiratory 14 14 14 Rate Blood Pressure 106/50 105/50 105/51 O2 Sat by Pulse 100 100 100 Oximetry 11/25/21 11/25/21 11/25/21 08:27 08:31 09:00 Temperature Pulse Rate 91 H 91 H 95 H Pulse Rate [ From Monitor] Pulse Rate [ Left Dorsalis Pedis] Pulse Rate [ Left Radial] Pulse Rate [ Right Dorsalis Pedis] Pulse Rate [ Right Radial] Respiratory 16 22 Rate Blood Pressure 105/51 182/91 154/74 O2 Sat by Pulse 99 98 96 Oximetry 11/25/21 11/25/21 11/25/21 09:03 09:30 10:00 Temperature Pulse Rate 80 76 Pulse Rate [ From Monitor] Pulse Rate [ Left Dorsalis Pedis] Pulse Rate [ Left Radial] Pulse Rate [ 93 H Right Dorsalis Pedis] Pulse Rate [ Right Radial] Respiratory 14 16 14 Rate Blood Pressure 125/52 108/48 O2 Sat by Pulse 100 100 99 Oximetry 11/25/21 11/25/21 11/25/21 10:06 10:30 11:00 Temperature Pulse Rate 76 94 H 93 H Pulse Rate [ From Monitor] Pulse Rate [ Left Dorsalis Pedis] Pulse Rate [ Left Radial] Pulse Rate [ Right Dorsalis Pedis] Pulse Rate [ Right Radial] Respiratory 35 H 20 Rate Blood Pressure 108/48 166/119 139/70 O2 Sat by Pulse 98 93 Oximetry - General physical appearance Narrative Exam: Gen; Intubated, sedated ENT: ETT and OGT in place. CV: S1, S2+ Resp; even and unlabored FIO2: 40%, PEEP 6 - Labs 11/25/21 05:12 11/25/21 05:12 Diabetes panel 11/25/21 Range/Units 05:12 Sodium 137 (137-145) mmol/L Potassium 4.5 (3.6-5.0) mmol/L Chloride 104.5 (98-107) mmol/L Carbon Dioxide 25 (22-30) mmol/L BUN 32 H (7-17) mg/dL Creatinine 1.0 (0.6-1.2) mg/dL Glucose 118 H (65-100) mg/dL Calcium 8.2 L (8.4-10.2) mg/dL Calcium panel 11/25/21 Range/Units 05:12 Calcium 8.2 L (8.4-10.2) mg/dL Phosphorus 3.40 (2.5-4.5) mg/dL Pituitary panel 11/25/21 Range/Units 05:12 Sodium 137 (137-145) mmol/L Potassium 4.5 (3.6-5.0) mmol/L Chloride 104.5 (98-107) mmol/L Carbon Dioxide 25 (22-30) mmol/L BUN 32 H (7-17) mg/dL Creatinine 1.0 (0.6-1.2) mg/dL Glucose 118 H (65-100) mg/dL Calcium 8.2 L (8.4-10.2) mg/dL Adrenal panel 11/25/21 Range/Units 05:12 Sodium 137 (137-145) mmol/L Potassium 4.5 (3.6-5.0) mmol/L Chloride 104.5 (98-107) mmol/L Carbon Dioxide 25 (22-30) mmol/L BUN 32 H (7-17) mg/dL Creatinine 1.0 (0.6-1.2) mg/dL Glucose 118 H (65-100) mg/dL Calcium 8.2 L (8.4-10.2) mg/dL
[2021-11-25] MEDS: SENNOSIDES ORAL LIQD 8.8 MG/5 ML ORAL LIQD PO SCH (11:40)
[2021-11-25] MEDS: HYDROcodone/ACETAMINOPHEN 10-325MG TAB FEEDTUBE SCH ×3 (12:20→21:26)
--- NOTE | 2021-11-25 13:14 | Progress Note ---
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 - tracheostomy rescheduled as patient not NPO - no new issues today, continue care as below; - continue daily SAT and SBT assessment as tolerated meanwhile - prn Levophed for target MAP > 65 mmHg - continue to wean supplemental oxygen for target O2 sat's > 90% acutely - VAP bundle addressed - continue lung protective strategies - continue bronchodilators with pulmonary hygiene per RT - wean per pulmonary driven protocols otherwise - avoid nephrotoxins, renally dose all medications - continue accuchecks with glycemic control per SSI (While critically ill target blood glucose of 140-180 mg/dL; avoid hypoglycemia) - sedation prn for target RASS 0 to -1 - antibiotics per ID recommendations - continue to avoid benzodiazepine's, reduce the possibility of delirium - prn analgesia per CPOT score - Maintenance of sleep-wake cycle, avoid delirium - continue enteral nutritional support at goal rate as tolerated - G.I. & VTE prophylaxis - PT/OT/ROM exercises - continue mobility protocols for pressure ulcer prophylaxis - Monitor hemodynamics closely - continue other care per attending / other consultants - discharge planning ongoing concurrently COVID SPECIFIC INTERVENTIONS - COVID-19 PCR negative .... Re-evaluate in am & prn CONDITION: CRITICAL PROGNOSIS: GUARDED CODE STATUS: FULL CODE The high probability of a clinically significant, sudden or life-threatening deterioration of the [respiratory, cardiovascular & neurologic] system(s) required my full and direct attention, intervention and personal management. The aggregate critical care time was [35] minutes without overlap. Time includes spent on; [x] Data Review and interpretation [x] Patient assessment and monitoring of vital signs [x] Documentation [x] Medication orders and management Subjective Date of service: 11/25/21 Principal diagnosis: Septic shock; AHRF; Anemia; Pneumonia; L. pleural effusion; HFrEF; Pulm HTN Interval history: Patient is seen today for: Septic shock; Acute hypoxemic respiratory failure; Anemia; Bilateral pneumonia; Left pleural effusion; HFrEF 30-35%; Pulm HTN RVSP 49 Seen and examined at bedside; 24hour events reviewed; nursing and respiratory care staff consulted; no adverse overnight events reported to me; resting in bed; remains on MVS; failed SBT; tentatively for trach and PEG today Objective Vital Signs - 12hr 11/25/21 11/25/21 11/25/21 01:31 02:00 02:31 Temperature Pulse Rate 85 98 H 101 H Pulse Rate [ From Monitor] Pulse Rate [ Left Dorsalis Pedis] Pulse Rate [ Left Radial] Pulse Rate [ Right Dorsalis Pedis] Pulse Rate [ Right Radial] Respiratory 17 20 32 H Rate Blood Pressure 151/77 170/80 192/101 O2 Sat by Pulse 100 95 95 Oximetry 11/25/21 11/25/21 11/25/21 03:00 03:30 04:00 Temperature 98.4 F Pulse Rate 111 H 105 H 87 Pulse Rate [ 74 From Monitor] Pulse Rate [ Left Dorsalis Pedis] Pulse Rate [ Left Radial] Pulse Rate [ Right Dorsalis Pedis] Pulse Rate [ Right Radial] Respiratory 14 17 14 Rate Blood Pressure 190/122 183/93 102/53 O2 Sat by Pulse 92 77 L 100 Oximetry 11/25/21 11/25/21 11/25/21 04:27 04:30 05:00 Temperature Pulse Rate 80 80 74 Pulse Rate [ From Monitor] Pulse Rate [ Left Dorsalis Pedis] Pulse Rate [ Left Radial] Pulse Rate [ Right Dorsalis Pedis] Pulse Rate [ Right Radial] Respiratory 14 14 Rate Blood Pressure 102/53 102/49 101/50 O2 Sat by Pulse 100 99 99 Oximetry 11/25/21 11/25/21 11/25/21 05:30 06:00 06:30 Temperature Pulse Rate 72 68 66 Pulse Rate [ From Monitor] Pulse Rate [ Left Dorsalis Pedis] Pulse Rate [ Left Radial] Pulse Rate [ Right Dorsalis Pedis] Pulse Rate [ Right Radial] Respiratory 14 14 14 Rate Blood Pressure 100/48 98/47 104/53 O2 Sat by Pulse 100 100 100 Oximetry 11/25/21 11/25/21 11/25/21 07:00 07:30 08:00 Temperature 96.4 F L Pulse Rate 65 68 94 H Pulse Rate [ 79 From Monitor] Pulse Rate [ 79 Left Dorsalis Pedis] Pulse Rate [ 79 Left Radial] Pulse Rate [ 79 Right Dorsalis Pedis] Pulse Rate [ 79 Right Radial] Respiratory 14 14 14 Rate Blood Pressure 106/50 105/50 105/51 O2 Sat by Pulse 100 100 100 Oximetry 11/25/21 11/25/21 11/25/21 08:27 08:31 09:00 Temperature Pulse Rate 91 H 91 H 95 H Pulse Rate [ From Monitor] Pulse Rate [ Left Dorsalis Pedis] Pulse Rate [ Left Radial] Pulse Rate [ Right Dorsalis Pedis] Pulse Rate [ Right Radial] Respiratory 16 22 Rate Blood Pressure 105/51 182/91 154/74 O2 Sat by Pulse 99 98 96 Oximetry 11/25/21 11/25/21 11/25/21 09:03 09:30 10:00 Temperature Pulse Rate 80 76 Pulse Rate [ From Monitor] Pulse Rate [ Left Dorsalis Pedis] Pulse Rate [ Left Radial] Pulse Rate [ 93 H Right Dorsalis Pedis] Pulse Rate [ Right Radial] Respiratory 14 16 14 Rate Blood Pressure 125/52 108/48 O2 Sat by Pulse 100 100 99 Oximetry 11/25/21 11/25/21 11/25/21 10:06 10:20 10:30 Temperature Pulse Rate 76 80 94 H Pulse Rate [ From Monitor] Pulse Rate [ Left Dorsalis Pedis] Pulse Rate [ Left Radial] Pulse Rate [ Right Dorsalis Pedis] Pulse Rate [ Right Radial] Respiratory 35 H Rate Blood Pressure 108/48 108/48 166/119 O2 Sat by Pulse 100 98 Oximetry 11/25/21 11/25/21 11/25/21 11:00 12:00 12:20 Temperature Pulse Rate 93 H 86 Pulse Rate [ From Monitor] Pulse Rate [ Left Dorsalis Pedis] Pulse Rate [ Left Radial] Pulse Rate [ Right Dorsalis Pedis] Pulse Rate [ Right Radial] Respiratory 20 14 Rate Blood Pressure 139/70 123/72 O2 Sat by Pulse 93 97 Oximetry Constitutional: no acute distress, other (ETT to [facility], frail elderly woman with mildly increased respiratory effort at rest) Eyes: non-icteric ENT: oropharynx moist, oropharyngeal exudate pre (clear frothy), other (ETT 23 cm ELIZABETH) Neck: supple, no lymphadenopathy, no JVD Effort: normal, mildly labored Ascultation: Bilateral: diminished breath sounds, rhonchi (bases) Percussion: Bilateral: not dull Cardiovascular: regular rate and rhythm, other (S1,S2) Gastrointestinal: normoactive bowel sounds, soft, non-tender, non-distended (protuberant) Integumentary: normal Extremities: no cyanosis, pink and warm, pulses normal, edema (upper etremities) Neurologic: non-focal exam (grossly), pupils equal and round, CN II-XII normal, other (sedated) Psychiatric: mood appropriate, affect normal CBC and BMP: 11/26/21 05:00 11/26/21 05:00 ABG, PT/INR, D-dimer: ABG ABG pH 7.449 pH Units (7.350-7.450) 11/21/21 16:00 ABG pCO2 32.1 mm Hg 11/21/21 16:00 ABG pO2 114.2 mm Hg (80.0-90.0) H 11/21/21 16:00 ABG O2 Saturation 98.3 % (95.0-99.0) 11/21/21 16:00 PT/INR, D-dimer PT 18.6 Sec. (12.2-14.9) H 11/03/21 22:32 INR 1.40 (0.87-1.13) H 11/03/21 22:32 D-Dimer 2655.00 ng/mlDDU (0-234) H 11/11/21 04:28 Abnormal lab findings: Abnormal Labs 11/03/21 11/03/21 11/03/21 22:32 22:32 22:32 WBC 29.3 H RBC 2.93 L Hgb 6.1 L Hct 21.9 L MCV 75 L MCH 21 L MCHC 28 L RDW 19.7 H Plt Count Seg Neuts % (Manual) 97.0 H Lymphocytes % (Manual) 3.0 L Seg Neutrophils # Man 28.4 H Lymphocytes # (Manual) 0.9 L Monocytes # (Manual) PT 18.6 H INR 1.40 H D-Dimer ABG pH ABG pO2 ABG HCO3 ABG O2 Saturation ABG Base Excess ABG Hemoglobin Oxyhemoglobin Sodium Potassium Chloride Carbon Dioxide 20 L BUN 33 H Glucose 119 H POC Glucose Lactic Acid Calcium 8.3 L Phosphorus Magnesium AST ALT Alkaline Phosphatase Lactate Dehydrogenase Troponin T 0.035 H C-Reactive Protein NT-Pro-B Natriuret Pep Total Protein Albumin LDL Cholesterol Direct 34 L Vitamin B12 Crossmatch 11/03/21 11/03/21 11/03/21 22:32 22:32 23:57 WBC RBC Hgb Hct MCV MCH MCHC RDW Plt Count Seg Neuts % (Manual) Lymphocytes % (Manual) Seg Neutrophils # Man Lymphocytes # (Manual) Monocytes # (Manual) PT INR D-Dimer ABG pH ABG pO2 ABG HCO3 ABG O2 Saturation ABG Base Excess ABG Hemoglobin Oxyhemoglobin Sodium Potassium Chloride Carbon Dioxide BUN Glucose POC Glucose Lactic Acid 3.70 H* Calcium Phosphorus Magnesium AST ALT Alkaline Phosphatase 139 H Lactate Dehydrogenase Troponin T C-Reactive Protein NT-Pro-B Natriuret Pep 7895 H Total Protein Albumin 3.5 L LDL Cholesterol Direct Vitamin B12 Crossmatch See Detail 11/04/21 11/04/21 11/05/21 00:59 13:58 00:51 WBC 27.9 H RBC 3.28 L Hgb 7.3 L Hct 25.5 L MCV 78 L MCH 22 L MCHC 29 L RDW 19.1 H Plt Count Seg Neuts % (Manual) 96.0 H Lymphocytes % (Manual) 2.0 L Seg Neutrophils # Man 26.8 H Lymphocytes # (Manual) 0.6 L Monocytes # (Manual) PT INR D-Dimer ABG pH ABG pO2 ABG HCO3 ABG O2 Saturation ABG Base Excess ABG Hemoglobin Oxyhemoglobin Sodium Potassium Chloride Carbon Dioxide BUN Glucose POC Glucose Lactic Acid Calcium Phosphorus Magnesium AST ALT Alkaline Phosphatase Lactate Dehydrogenase Troponin T 0.051 H D 0.032 H D C-Reactive Protein NT-Pro-B Natriuret Pep Total Protein Albumin LDL Cholesterol Direct Vitamin B12 Crossmatch 11/05/21 11/05/21 11/05/21 06:11 06:11 06:11 WBC 31.8 H RBC 3.57 L Hgb 8.0 L Hct 27.7 L MCV 78 L MCH 22 L MCHC 29 L RDW 19.2 H Plt Count Seg Neuts % (Manual) 91.0 H Lymphocytes % (Manual) 4.5 L Seg Neutrophils # Man 28.9 H Lymphocytes # (Manual) Monocytes # (Manual) 1.1 H PT INR D-Dimer 1494.53 H ABG pH ABG pO2 ABG HCO3 ABG O2 Saturation ABG Base Excess ABG Hemoglobin Oxyhemoglobin Sodium Potassium Chloride Carbon Dioxide 19 L BUN 42 H Glucose 115 H POC Glucose Lactic Acid Calcium Phosphorus Magnesium AST 43 H ALT Alkaline Phosphatase Lactate Dehydrogenase 187 H Troponin T C-Reactive Protein 22.20 H NT-Pro-B Natriuret Pep Total Protein 6.0 L Albumin 3.2 L LDL Cholesterol Direct Vitamin B12 Crossmatch 11/05/21 11/05/21 11/06/21 06:11 12:15 00:30 WBC RBC Hgb Hct MCV MCH MCHC RDW Plt Count Seg Neuts % (Manual) Lymphocytes % (Manual) Seg Neutrophils # Man Lymphocytes # (Manual) Monocytes # (Manual) PT INR D-Dimer ABG pH ABG pO2 ABG HCO3 ABG O2 Saturation ABG Base Excess ABG Hemoglobin Oxyhemoglobin Sodium Potassium Chloride Carbon Dioxide BUN Glucose POC Glucose 113 H 69 L Lactic Acid Calcium Phosphorus Magnesium AST ALT Alkaline Phosphatase Lactate Dehydrogenase Troponin T 0.033 H C-Reactive Protein NT-Pro-B Natriuret Pep Total Protein Albumin LDL Cholesterol Direct Vitamin B12 Crossmatch 11/06/21 11/06/21 11/06/21 05:50 15:50 15:50 WBC 25.5 H RBC 3.62 L Hgb 8.0 L Hct 27.5 L MCV 76 L MCH 22 L MCHC 29 L RDW 19.6 H Plt Count Seg Neuts % (Manual) 92.0 H Lymphocytes % (Manual) 5.0 L Seg Neutrophils # Man 23.5 H Lymphocytes # (Manual) Monocytes # (Manual) PT INR D-Dimer ABG pH 7.305 L ABG pO2 ABG HCO3 15.8 L ABG O2 Saturation ABG Base Excess -9.6 L ABG Hemoglobin 8.6 L Oxyhemoglobin 94.6 L Sodium Potassium Chloride 113.9 H Carbon Dioxide 17 L BUN 56 H Glucose 114 H POC Glucose Lactic Acid Calcium 7.9 L Phosphorus Magnesium AST 1410 H ALT 934 H Alkaline Phosphatase 142 H Lactate Dehydrogenase Troponin T C-Reactive Protein NT-Pro-B Natriuret Pep Total Protein 5.0 L Albumin 2.6 L LDL Cholesterol Direct Vitamin B12 Crossmatch 11/07/21 11/07/21 11/07/21 03:30 04:50 08:07 WBC RBC Hgb Hct MCV MCH MCHC RDW Plt Count Seg Neuts % (Manual) Lymphocytes % (Manual) Seg Neutrophils # Man Lymphocytes # (Manual) Monocytes # (Manual) PT INR D-Dimer ABG pH ABG pO2 296.9 H ABG HCO3 18.1 L ABG O2 Saturation 99.5 H ABG Base Excess -5.9 L ABG Hemoglobin 7.6 L Oxyhemoglobin Sodium Potassium Chloride Carbon Dioxide BUN Glucose POC Glucose 106 H 108 H Lactic Acid Calcium Phosphorus Magnesium AST ALT Alkaline Phosphatase Lactate Dehydrogenase Troponin T C-Reactive Protein NT-Pro-B Natriuret Pep Total Protein Albumin LDL Cholesterol Direct Vitamin B12 Crossmatch 11/08/21 11/08/21 11/08/21 03:10 18:05 23:43 WBC RBC Hgb Hct MCV MCH MCHC RDW Plt Count Seg Neuts % (Manual) Lymphocytes % (Manual) Seg Neutrophils # Man Lymphocytes # (Manual) Monocytes # (Manual) PT INR D-Dimer ABG pH ABG pO2 127.4 H ABG HCO3 ABG O2 Saturation ABG Base Excess -3.4 L ABG Hemoglobin 7.4 L Oxyhemoglobin Sodium Potassium Chloride Carbon Dioxide BUN Glucose POC Glucose 113 H 141 H Lactic Acid Calcium Phosphorus Magnesium AST ALT Alkaline Phosphatase Lactate Dehydrogenase Troponin T C-Reactive Protein NT-Pro-B Natriuret Pep Total Protein Albumin LDL Cholesterol Direct Vitamin B12 Crossmatch 11/08/21 11/08/21 11/09/21 Unknown Unknown 02:00 WBC 14.5 H RBC 3.35 L Hgb 7.5 L 8.1 L Hct 25.4 L 27.6 L MCV 76 L 76 L MCH 23 L 22 L MCHC RDW 19.9 H 19.9 H Plt Count Seg Neuts % (Manual) Lymphocytes % (Manual) Seg Neutrophils # Man Lymphocytes # (Manual) Monocytes # (Manual) PT INR D-Dimer ABG pH ABG pO2 ABG HCO3 ABG O2 Saturation ABG Base Excess ABG Hemoglobin Oxyhemoglobin Sodium 154 H D Potassium 3.3 L Chloride 120.7 H Carbon Dioxide 20 L BUN 38 H Glucose POC Glucose Lactic Acid Calcium 8.3 L Phosphorus Magnesium AST ALT Alkaline Phosphatase Lactate Dehydrogenase Troponin T C-Reactive Protein NT-Pro-B Natriuret Pep Total Protein Albumin LDL Cholesterol Direct Vitamin B12 Crossmatch 11/09/21 11/09/21 11/09/21 02:00 02:31 05:12 WBC RBC Hgb Hct MCV MCH MCHC RDW Plt Count Seg Neuts % (Manual) Lymphocytes % (Manual) Seg Neutrophils # Man Lymphocytes # (Manual) Monocytes # (Manual) PT INR D-Dimer ABG pH 7.479 H ABG pO2 121.3 H ABG HCO3 ABG O2 Saturation ABG Base Excess ABG Hemoglobin 7.3 L Oxyhemoglobin Sodium Potassium Chloride 112.5 H Carbon Dioxide BUN 33 H Glucose 161 H POC Glucose 135 H Lactic Acid Calcium Phosphorus Magnesium AST 251 H ALT 481 H Alkaline Phosphatase Lactate Dehydrogenase Troponin T C-Reactive Protein NT-Pro-B Natriuret Pep Total Protein 5.0 L Albumin 2.8 L LDL Cholesterol Direct Vitamin B12 Crossmatch 11/09/21 11/09/21 11/09/21 11:33 16:32 23:28 WBC RBC Hgb Hct MCV MCH MCHC RDW Plt Count Seg Neuts % (Manual) Lymphocytes % (Manual) Seg Neutrophils # Man Lymphocytes # (Manual) Monocytes # (Manual) PT INR D-Dimer ABG pH ABG pO2 ABG HCO3 ABG O2 Saturation ABG Base Excess ABG Hemoglobin Oxyhemoglobin Sodium Potassium Chloride Carbon Dioxide BUN Glucose POC Glucose 132 H 133 H 143 H Lactic Acid Calcium Phosphorus Magnesium AST ALT Alkaline Phosphatase Lactate Dehydrogenase Troponin T C-Reactive Protein NT-Pro-B Natriuret Pep Total Protein Albumin LDL Cholesterol Direct Vitamin B12 Crossmatch 11/10/21 11/10/21 11/10/21 04:00 04:00 05:35 WBC 16.0 H RBC 3.61 L Hgb 8.0 L Hct 27.1 L MCV 75 L MCH 22 L MCHC RDW 20.4 H Plt Count Seg Neuts % (Manual) Lymphocytes % (Manual) Seg Neutrophils # Man Lymphocytes # (Manual) Monocytes # (Manual) PT INR D-Dimer ABG pH ABG pO2 ABG HCO3 ABG O2 Saturation ABG Base Excess ABG Hemoglobin Oxyhemoglobin Sodium 149 H Potassium Chloride 114.1 H Carbon Dioxide BUN 31 H Glucose 148 H POC Glucose 132 H Lactic Acid Calcium 8.2 L Phosphorus Magnesium AST ALT Alkaline Phosphatase Lactate Dehydrogenase Troponin T C-Reactive Protein NT-Pro-B Natriuret Pep Total Protein Albumin LDL Cholesterol Direct Vitamin B12 Crossmatch 11/10/21 11/10/21 11/10/21 11:31 14:08 15:35 WBC RBC Hgb Hct MCV MCH MCHC RDW Plt Count Seg Neuts % (Manual) Lymphocytes % (Manual) Seg Neutrophils # Man Lymphocytes # (Manual) Monocytes # (Manual) PT INR D-Dimer ABG pH ABG pO2 126.6 H ABG HCO3 ABG O2 Saturation ABG Base Excess ABG Hemoglobin 7.4 L Oxyhemoglobin Sodium Potassium Chloride Carbon Dioxide BUN Glucose POC Glucose 147 H Lactic Acid Calcium Phosphorus Magnesium AST ALT Alkaline Phosphatase Lactate Dehydrogenase Troponin T C-Reactive Protein NT-Pro-B Natriuret Pep Total Protein Albumin LDL Cholesterol Direct Vitamin B12 1823 H Crossmatch 11/10/21 11/11/21 11/11/21 17:53 00:55 04:28 WBC RBC Hgb Hct MCV MCH MCHC RDW Plt Count Seg Neuts % (Manual) Lymphocytes % (Manual) Seg Neutrophils # Man Lymphocytes # (Manual) Monocytes # (Manual) PT INR D-Dimer ABG pH ABG pO2 ABG HCO3 ABG O2 Saturation ABG Base Excess ABG Hemoglobin Oxyhemoglobin Sodium 149 H Potassium Chloride 112.2 H Carbon Dioxide BUN 34 H Glucose 148 H POC Glucose 140 H 145 H Lactic Acid Calcium 7.9 L Phosphorus Magnesium AST 53 H ALT 203 H Alkaline Phosphatase Lactate Dehydrogenase Troponin T C-Reactive Protein NT-Pro-B Natriuret Pep Total Protein 4.9 L Albumin 2.6 L LDL Cholesterol Direct Vitamin B12 Crossmatch 11/11/21 11/11/21 11/11/21 04:28 04:28 05:28 WBC 20.9 H RBC 3.47 L Hgb 7.5 L Hct 26.0 L MCV 75 L MCH 22 L MCHC 29 L RDW 21.6 H Plt Count 132 L Seg Neuts % (Manual) Lymphocytes % (Manual) Seg Neutrophils # Man Lymphocytes # (Manual) Monocytes # (Manual) PT INR D-Dimer 2655.00 H ABG pH ABG pO2 ABG HCO3 ABG O2 Saturation ABG Base Excess ABG Hemoglobin Oxyhemoglobin Sodium Potassium Chloride Carbon Dioxide BUN Glucose POC Glucose 154 H Lactic Acid Calcium Phosphorus Magnesium AST ALT Alkaline Phosphatase Lactate Dehydrogenase Troponin T C-Reactive Protein NT-Pro-B Natriuret Pep Total Protein Albumin LDL Cholesterol Direct Vitamin B12 Crossmatch 11/11/21 11/11/21 11/12/21 12:38 18:13 00:14 WBC RBC Hgb Hct MCV MCH MCHC RDW Plt Count Seg Neuts % (Manual) Lymphocytes % (Manual) Seg Neutrophils # Man Lymphocytes # (Manual) Monocytes # (Manual) PT INR D-Dimer ABG pH ABG pO2 ABG HCO3 ABG O2 Saturation ABG Base Excess ABG Hemoglobin Oxyhemoglobin Sodium Potassium Chloride Carbon Dioxide BUN Glucose POC Glucose 137 H 108 H 137 H Lactic Acid Calcium Phosphorus Magnesium AST ALT Alkaline Phosphatase Lactate Dehydrogenase Troponin T C-Reactive Protein NT-Pro-B Natriuret Pep Total Protein Albumin LDL Cholesterol Direct Vitamin B12 Crossmatch 11/12/21 11/12/21 11/12/21 05:40 06:24 11:12 WBC RBC Hgb Hct MCV MCH MCHC RDW Plt Count Seg Neuts % (Manual) Lymphocytes % (Manual) Seg Neutrophils # Man Lymphocytes # (Manual) Monocytes # (Manual) PT INR D-Dimer ABG pH 7.586 H ABG pO2 150.6 H ABG HCO3 27.2 H ABG O2 Saturation 99.1 H ABG Base Excess 5.2 H ABG Hemoglobin 7.5 L Oxyhemoglobin Sodium Potassium Chloride Carbon Dioxide BUN Glucose POC Glucose 132 H 140 H Lactic Acid Calcium Phosphorus Magnesium AST ALT Alkaline Phosphatase Lactate Dehydrogenase Troponin T C-Reactive Protein NT-Pro-B Natriuret Pep Total Protein Albumin LDL Cholesterol Direct Vitamin B12 Crossmatch 11/12/21 11/12/21 11/12/21 14:50 14:50 17:13 WBC 19.8 H RBC 3.27 L Hgb 7.1 L Hct 24.5 L MCV 75 L MCH 22 L MCHC 29 L RDW 22.3 H Plt Count Seg Neuts % (Manual) Lymphocytes % (Manual) Seg Neutrophils # Man Lymphocytes # (Manual) Monocytes # (Manual) PT INR D-Dimer ABG pH ABG pO2 ABG HCO3 ABG O2 Saturation ABG Base Excess ABG Hemoglobin Oxyhemoglobin Sodium 150 H Potassium 3.3 L Chloride 112.0 H Carbon Dioxide BUN 40 H Glucose 151 H POC Glucose 121 H Lactic Acid Calcium 7.4 L Phosphorus 1.70 L Magnesium 1.40 L AST ALT Alkaline Phosphatase Lactate Dehydrogenase Troponin T C-Reactive Protein NT-Pro-B Natriuret Pep Total Protein Albumin LDL Cholesterol Direct Vitamin B12 Crossmatch 11/12/21 11/13/21 11/13/21 23:19 05:34 06:30 WBC RBC Hgb Hct MCV MCH MCHC RDW Plt Count Seg Neuts % (Manual) Lymphocytes % (Manual) Seg Neutrophils # Man Lymphocytes # (Manual) Monocytes # (Manual) PT INR D-Dimer ABG pH ABG pO2 ABG HCO3 ABG O2 Saturation ABG Base Excess ABG Hemoglobin Oxyhemoglobin Sodium 149 H Potassium Chloride 60.0 L Carbon Dioxide BUN 40 H Glucose 146 H POC Glucose 113 H 132 H Lactic Acid Calcium 7.3 L Phosphorus Magnesium 2.40 H AST ALT 72 H Alkaline Phosphatase Lactate Dehydrogenase Troponin T C-Reactive Protein NT-Pro-B Natriuret Pep Total Protein 5.2 L Albumin 2.2 L LDL Cholesterol Direct Vitamin B12 Crossmatch 11/13/21 11/13/21 11/13/21 06:30 08:30 11:19 WBC 21.2 H RBC 3.12 L Hgb 6.8 L Hct 23.2 L MCV 74 L MCH 22 L MCHC 29 L RDW 22.2 H Plt Count 135 L Seg Neuts % (Manual) Lymphocytes % (Manual) Seg Neutrophils # Man Lymphocytes # (Manual) Monocytes # (Manual) PT INR D-Dimer ABG pH ABG pO2 ABG HCO3 ABG O2 Saturation ABG Base Excess ABG Hemoglobin Oxyhemoglobin Sodium Potassium Chloride Carbon Dioxide BUN Glucose POC Glucose 136 H Lactic Acid Calcium Phosphorus Magnesium AST ALT Alkaline Phosphatase Lactate Dehydrogenase Troponin T C-Reactive Protein NT-Pro-B Natriuret Pep Total Protein Albumin LDL Cholesterol Direct Vitamin B12 Crossmatch See Detail 11/13/21 11/14/21 11/14/21 18:21 00:01 04:46 WBC 20.0 H RBC 3.41 L Hgb 7.9 L Hct 26.8 L MCV MCH 23 L MCHC 29 L RDW 24.0 H Plt Count Seg Neuts % (Manual) Lymphocytes % (Manual) Seg Neutrophils # Man Lymphocytes # (Manual) Monocytes # (Manual) PT INR D-Dimer ABG pH ABG pO2 ABG HCO3 ABG O2 Saturation ABG Base Excess ABG Hemoglobin Oxyhemoglobin Sodium Potassium Chloride Carbon Dioxide BUN Glucose POC Glucose 149 H 141 H Lactic Acid Calcium Phosphorus Magnesium AST ALT Alkaline Phosphatase Lactate Dehydrogenase Troponin T C-Reactive Protein NT-Pro-B Natriuret Pep Total Protein Albumin LDL Cholesterol Direct Vitamin B12 Crossmatch 11/14/21 11/14/21 11/14/21 04:46 05:10 11:10 WBC RBC Hgb Hct MCV MCH MCHC RDW Plt Count Seg Neuts % (Manual) Lymphocytes % (Manual) Seg Neutrophils # Man Lymphocytes # (Manual) Monocytes # (Manual) PT INR D-Dimer ABG pH ABG pO2 ABG HCO3 ABG O2 Saturation ABG Base Excess ABG Hemoglobin Oxyhemoglobin Sodium 148 H Potassium Chloride 113.1 H Carbon Dioxide BUN 43 H Glucose 140 H POC Glucose 132 H 133 H Lactic Acid Calcium 7.5 L Phosphorus Magnesium AST ALT Alkaline Phosphatase Lactate Dehydrogenase Troponin T C-Reactive Protein NT-Pro-B Natriuret Pep Total Protein Albumin LDL Cholesterol Direct Vitamin B12 Crossmatch 11/14/21 11/14/21 11/14/21 16:14 17:48 23:23 WBC RBC Hgb Hct MCV MCH MCHC RDW Plt Count Seg Neuts % (Manual) Lymphocytes % (Manual) Seg Neutrophils # Man Lymphocytes # (Manual) Monocytes # (Manual) PT INR D-Dimer ABG pH ABG pO2 ABG HCO3 28.0 H ABG O2 Saturation ABG Base Excess 3.1 H ABG Hemoglobin 5.8 L Oxyhemoglobin 94.8 L Sodium Potassium Chloride Carbon Dioxide BUN Glucose POC Glucose 130 H 136 H Lactic Acid Calcium Phosphorus Magnesium AST ALT Alkaline Phosphatase Lactate Dehydrogenase Troponin T C-Reactive Protein NT-Pro-B Natriuret Pep Total Protein Albumin LDL Cholesterol Direct Vitamin B12 Crossmatch 11/15/21 11/15/21 11/15/21 05:20 05:50 05:50 WBC 19.9 H RBC 3.50 L Hgb 8.2 L Hct 27.9 L MCV MCH 23 L MCHC 29 L RDW 24.9 H Plt Count Seg Neuts % (Manual) Lymphocytes % (Manual) Seg Neutrophils # Man Lymphocytes # (Manual) Monocytes # (Manual) PT INR D-Dimer ABG pH ABG pO2 ABG HCO3 ABG O2 Saturation ABG Base Excess ABG Hemoglobin Oxyhemoglobin Sodium 149 H Potassium Chloride 112.0 H Carbon Dioxide BUN 48 H Glucose 152 H POC Glucose 137 H Lactic Acid Calcium 7.9 L Phosphorus Magnesium AST ALT Alkaline Phosphatase Lactate Dehydrogenase Troponin T C-Reactive Protein NT-Pro-B Natriuret Pep Total Protein Albumin LDL Cholesterol Direct Vitamin B12 Crossmatch 11/15/21 11/15/21 11/15/21 12:12 17:07 23:24 WBC RBC Hgb Hct MCV MCH MCHC RDW Plt Count Seg Neuts % (Manual) Lymphocytes % (Manual) Seg Neutrophils # Man Lymphocytes # (Manual) Monocytes # (Manual) PT INR D-Dimer ABG pH ABG pO2 ABG HCO3 ABG O2 Saturation ABG Base Excess ABG Hemoglobin Oxyhemoglobin Sodium Potassium Chloride Carbon Dioxide BUN Glucose POC Glucose 114 H 135 H 123 H Lactic Acid Calcium Phosphorus Magnesium AST ALT Alkaline Phosphatase Lactate Dehydrogenase Troponin T C-Reactive Protein NT-Pro-B Natriuret Pep Total Protein Albumin LDL Cholesterol Direct Vitamin B12 Crossmatch 11/16/21 11/16/21 11/16/21 05:21 10:00 10:00 WBC 21.7 H RBC 2.57 L Hgb 6.0 L Hct 20.2 L D MCV MCH 24 L MCHC RDW 26.3 H Plt Count Seg Neuts % (Manual) Lymphocytes % (Manual) Seg Neutrophils # Man Lymphocytes # (Manual) Monocytes # (Manual) PT INR D-Dimer ABG pH ABG pO2 ABG HCO3 ABG O2 Saturation ABG Base Excess ABG Hemoglobin Oxyhemoglobin Sodium 153 H Potassium Chloride 114.9 H Carbon Dioxide BUN 74 H Glucose 155 H POC Glucose 127 H Lactic Acid Calcium 8.1 L Phosphorus Magnesium AST ALT Alkaline Phosphatase Lactate Dehydrogenase Troponin T C-Reactive Protein NT-Pro-B Natriuret Pep Total Protein Albumin LDL Cholesterol Direct Vitamin B12 Crossmatch 11/16/21 11/16/21 11/16/21 11:34 14:00 15:25 WBC 17.2 H RBC 2.08 L Hgb 4.7 L* Hct 16.2 L* MCV 78 L MCH 23 L MCHC 29 L RDW 26.0 H Plt Count Seg Neuts % (Manual) 87.0 H Lymphocytes % (Manual) 8.0 L Seg Neutrophils # Man 15.0 H Lymphocytes # (Manual) Monocytes # (Manual) 0.9 H PT INR D-Dimer ABG pH ABG pO2 ABG HCO3 ABG O2 Saturation ABG Base Excess ABG Hemoglobin Oxyhemoglobin Sodium Potassium Chloride Carbon Dioxide BUN Glucose POC Glucose 131 H Lactic Acid Calcium Phosphorus Magnesium AST ALT Alkaline Phosphatase Lactate Dehydrogenase Troponin T C-Reactive Protein NT-Pro-B Natriuret Pep Total Protein Albumin LDL Cholesterol Direct Vitamin B12 Crossmatch See Detail 11/16/21 11/16/21 11/16/21 15:25 17:21 22:43 WBC RBC Hgb 8.6 L D Hct 27.7 L D MCV MCH MCHC RDW Plt Count Seg Neuts % (Manual) Lymphocytes % (Manual) Seg Neutrophils # Man Lymphocytes # (Manual) Monocytes # (Manual) PT INR D-Dimer ABG pH ABG pO2 ABG HCO3 ABG O2 Saturation ABG Base Excess ABG Hemoglobin Oxyhemoglobin Sodium 148 H Potassium Chloride 113.2 H Carbon Dioxide BUN 84 H Glucose 164 H POC Glucose 124 H Lactic Acid Calcium 7.6 L Phosphorus Magnesium AST ALT Alkaline Phosphatase Lactate Dehydrogenase Troponin T C-Reactive Protein NT-Pro-B Natriuret Pep Total Protein Albumin LDL Cholesterol Direct Vitamin B12 Crossmatch 11/16/21 11/17/21 11/17/21 23:07 05:33 05:56 WBC 25.1 H RBC 3.47 L Hgb 8.7 L Hct 28.5 L MCV MCH 25 L MCHC RDW 22.3 H Plt Count Seg Neuts % (Manual) Lymphocytes % (Manual) Seg Neutrophils # Man Lymphocytes # (Manual) Monocytes # (Manual) PT INR D-Dimer ABG pH ABG pO2 ABG HCO3 ABG O2 Saturation ABG Base Excess ABG Hemoglobin Oxyhemoglobin Sodium Potassium Chloride Carbon Dioxide BUN Glucose POC Glucose 128 H 133 H Lactic Acid Calcium Phosphorus Magnesium AST ALT Alkaline Phosphatase Lactate Dehydrogenase Troponin T C-Reactive Protein NT-Pro-B Natriuret Pep Total Protein Albumin LDL Cholesterol Direct Vitamin B12 Crossmatch 11/17/21 11/17/21 11/17/21 05:56 11:00 11:55 WBC RBC Hgb 8.3 L Hct 26.9 L MCV MCH MCHC RDW Plt Count Seg Neuts % (Manual) Lymphocytes % (Manual) Seg Neutrophils # Man Lymphocytes # (Manual) Monocytes # (Manual) PT INR D-Dimer ABG pH ABG pO2 ABG HCO3 ABG O2 Saturation ABG Base Excess ABG Hemoglobin Oxyhemoglobin Sodium 151 H Potassium Chloride 113.6 H Carbon Dioxide BUN 85 H Glucose 132 H POC Glucose 121 H Lactic Acid Calcium 7.8 L Phosphorus Magnesium AST ALT Alkaline Phosphatase Lactate Dehydrogenase Troponin T C-Reactive Protein NT-Pro-B Natriuret Pep Total Protein 5.1 L Albumin 2.2 L LDL Cholesterol Direct Vitamin B12 Crossmatch 11/17/21 11/17/21 11/18/21 18:04 18:55 00:26 WBC RBC Hgb 7.5 L 7.1 L Hct 24.8 L 23.6 L MCV MCH MCHC RDW Plt Count Seg Neuts % (Manual) Lymphocytes % (Manual) Seg Neutrophils # Man Lymphocytes # (Manual) Monocytes # (Manual) PT INR D-Dimer ABG pH ABG pO2 ABG HCO3 ABG O2 Saturation ABG Base Excess ABG Hemoglobin Oxyhemoglobin Sodium Potassium Chloride Carbon Dioxide BUN Glucose POC Glucose 144 H Lactic Acid Calcium Phosphorus Magnesium AST ALT Alkaline Phosphatase Lactate Dehydrogenase Troponin T C-Reactive Protein NT-Pro-B Natriuret Pep Total Protein Albumin LDL Cholesterol Direct Vitamin B12 Crossmatch 11/18/21 11/18/21 11/18/21 00:43 05:10 05:10 WBC 12.5 H RBC 2.39 L Hgb 6.1 L Hct 20.2 L MCV MCH 25 L MCHC RDW 23.2 H Plt Count Seg Neuts % (Manual) Lymphocytes % (Manual) Seg Neutrophils # Man Lymphocytes # (Manual) Monocytes # (Manual) PT INR D-Dimer ABG pH ABG pO2 ABG HCO3 ABG O2 Saturation ABG Base Excess ABG Hemoglobin Oxyhemoglobin Sodium 131 L D Potassium 2.9 L* D Chloride 97.8 L Carbon Dioxide BUN 58 H Glucose 665 H* POC Glucose 139 H Lactic Acid Calcium 7.0 L Phosphorus 2.20 L D Magnesium 1.50 L AST ALT Alkaline Phosphatase Lactate Dehydrogenase Troponin T C-Reactive Protein NT-Pro-B Natriuret Pep Total Protein Albumin LDL Cholesterol Direct Vitamin B12 Crossmatch 11/18/21 11/18/21 11/18/21 05:23 07:10 10:45 WBC RBC Hgb Hct MCV MCH MCHC RDW Plt Count Seg Neuts % (Manual) Lymphocytes % (Manual) Seg Neutrophils # Man Lymphocytes # (Manual) Monocytes # (Manual) PT INR D-Dimer ABG pH ABG pO2 ABG HCO3 ABG O2 Saturation ABG Base Excess ABG Hemoglobin Oxyhemoglobin Sodium 148 H D Potassium 3.1 L Chloride 111.9 H Carbon Dioxide BUN 63 H Glucose 141 H POC Glucose 124 H Lactic Acid Calcium 8.1 L D Phosphorus Magnesium AST ALT Alkaline Phosphatase Lactate Dehydrogenase Troponin T C-Reactive Protein NT-Pro-B Natriuret Pep Total Protein Albumin LDL Cholesterol Direct Vitamin B12 Crossmatch See Detail 11/18/21 11/19/21 11/19/21 11:57 00:19 04:55 WBC RBC 3.35 L Hgb 9.0 L 8.9 L Hct 28.3 L D 28.1 L MCV MCH 27 L MCHC RDW 20.3 H Plt Count Seg Neuts % (Manual) Lymphocytes % (Manual) Seg Neutrophils # Man Lymphocytes # (Manual) Monocytes # (Manual) PT INR D-Dimer ABG pH ABG pO2 ABG HCO3 ABG O2 Saturation ABG Base Excess ABG Hemoglobin Oxyhemoglobin Sodium Potassium Chloride Carbon Dioxide BUN Glucose POC Glucose 119 H Lactic Acid Calcium Phosphorus Magnesium AST ALT Alkaline Phosphatase Lactate Dehydrogenase Troponin T C-Reactive Protein NT-Pro-B Natriuret Pep Total Protein Albumin LDL Cholesterol Direct Vitamin B12 Crossmatch 11/19/21 11/19/21 11/20/21 04:55 05:42 00:55 WBC RBC Hgb 9.0 L Hct 28.6 L MCV MCH MCHC RDW Plt Count Seg Neuts % (Manual) Lymphocytes % (Manual) Seg Neutrophils # Man Lymphocytes # (Manual) Monocytes # (Manual) PT INR D-Dimer ABG pH ABG pO2 ABG HCO3 ABG O2 Saturation ABG Base Excess ABG Hemoglobin Oxyhemoglobin Sodium Potassium 3.5 L Chloride 108.6 H Carbon Dioxide BUN 47 H Glucose 207 H POC Glucose 63 L Lactic Acid Calcium 7.1 L Phosphorus Magnesium AST ALT Alkaline Phosphatase Lactate Dehydrogenase Troponin T C-Reactive Protein NT-Pro-B Natriuret Pep Total Protein Albumin LDL Cholesterol Direct Vitamin B12 Crossmatch 11/20/21 11/20/21 11/20/21 05:40 05:40 Unknown WBC RBC 3.40 L Hgb 9.1 L Hct 28.8 L MCV MCH 27 L MCHC RDW 20.7 H Plt Count Seg Neuts % (Manual) Lymphocytes % (Manual) Seg Neutrophils # Man Lymphocytes # (Manual) Monocytes # (Manual) PT INR D-Dimer ABG pH ABG pO2 ABG HCO3 ABG O2 Saturation ABG Base Excess -2.7 L ABG Hemoglobin 9.5 L Oxyhemoglobin 94.3 L Sodium Potassium 3.5 L Chloride 108.9 H Carbon Dioxide BUN 37 H Glucose 117 H POC Glucose Lactic Acid Calcium 7.5 L Phosphorus Magnesium AST ALT Alkaline Phosphatase Lactate Dehydrogenase Troponin T C-Reactive Protein NT-Pro-B Natriuret Pep Total Protein Albumin LDL Cholesterol Direct Vitamin B12 Crossmatch 11/21/21 11/21/21 11/21/21 04:30 04:30 16:00 WBC RBC 3.25 L Hgb 8.6 L Hct 28.1 L MCV MCH 26 L MCHC RDW 20.7 H Plt Count Seg Neuts % (Manual) Lymphocytes % (Manual) Seg Neutrophils # Man Lymphocytes # (Manual) Monocytes # (Manual) PT INR D-Dimer ABG pH ABG pO2 114.2 H ABG HCO3 ABG O2 Saturation ABG Base Excess ABG Hemoglobin 9.1 L Oxyhemoglobin Sodium 134 L Potassium Chloride Carbon Dioxide 20 L BUN 34 H Glucose POC Glucose Lactic Acid Calcium 7.1 L Phosphorus Magnesium AST ALT Alkaline Phosphatase Lactate Dehydrogenase Troponin T C-Reactive Protein NT-Pro-B Natriuret Pep Total Protein Albumin LDL Cholesterol Direct Vitamin B12 Crossmatch 11/22/21 11/22/21 11/22/21 07:07 07:07 23:54 WBC RBC 3.30 L Hgb 9.0 L Hct 28.5 L MCV MCH 27 L MCHC RDW 21.0 H Plt Count Seg Neuts % (Manual) Lymphocytes % (Manual) Seg Neutrophils # Man Lymphocytes # (Manual) Monocytes # (Manual) PT INR D-Dimer ABG pH ABG pO2 ABG HCO3 ABG O2 Saturation ABG Base Excess ABG Hemoglobin Oxyhemoglobin Sodium Potassium Chloride Carbon Dioxide BUN 32 H Glucose 106 H POC Glucose 110 H Lactic Acid Calcium 7.5 L Phosphorus Magnesium AST ALT Alkaline Phosphatase Lactate Dehydrogenase Troponin T C-Reactive Protein NT-Pro-B Natriuret Pep Total Protein Albumin LDL Cholesterol Direct Vitamin B12 Crossmatch 11/23/21 11/23/21 11/23/21 04:38 04:38 06:01 WBC RBC 3.23 L Hgb 8.8 L Hct 28.0 L MCV MCH 27 L MCHC RDW 21.3 H Plt Count Seg Neuts % (Manual) Lymphocytes % (Manual) Seg Neutrophils # Man Lymphocytes # (Manual) Monocytes # (Manual) PT INR D-Dimer ABG pH ABG pO2 ABG HCO3 ABG O2 Saturation ABG Base Excess ABG Hemoglobin Oxyhemoglobin Sodium 136 L Potassium Chloride Carbon Dioxide 20 L BUN 32 H Glucose 109 H POC Glucose 115 H Lactic Acid Calcium 7.7 L Phosphorus Magnesium AST ALT Alkaline Phosphatase Lactate Dehydrogenase Troponin T C-Reactive Protein NT-Pro-B Natriuret Pep Total Protein Albumin LDL Cholesterol Direct Vitamin B12 Crossmatch 11/23/21 11/24/21 11/24/21 11:40 00:03 04:13 WBC RBC 3.18 L Hgb 8.5 L Hct 27.5 L MCV MCH 27 L MCHC RDW 21.6 H Plt Count Seg Neuts % (Manual) Lymphocytes % (Manual) Seg Neutrophils # Man Lymphocytes # (Manual) Monocytes # (Manual) PT INR D-Dimer ABG pH ABG pO2 ABG HCO3 ABG O2 Saturation ABG Base Excess ABG Hemoglobin Oxyhemoglobin Sodium Potassium Chloride Carbon Dioxide BUN Glucose POC Glucose 117 H 111 H Lactic Acid Calcium Phosphorus Magnesium AST ALT Alkaline Phosphatase Lactate Dehydrogenase Troponin T C-Reactive Protein NT-Pro-B Natriuret Pep Total Protein Albumin LDL Cholesterol Direct Vitamin B12 Crossmatch 11/24/21 11/24/21 11/24/21 04:13 05:30 11:10 WBC RBC Hgb Hct MCV MCH MCHC RDW Plt Count Seg Neuts % (Manual) Lymphocytes % (Manual) Seg Neutrophils # Man Lymphocytes # (Manual) Monocytes # (Manual) PT INR D-Dimer ABG pH ABG pO2 ABG HCO3 ABG O2 Saturation ABG Base Excess ABG Hemoglobin Oxyhemoglobin Sodium Potassium Chloride Carbon Dioxide BUN 31 H Glucose 101 H POC Glucose 115 H 107 H Lactic Acid Calcium 7.7 L Phosphorus Magnesium AST ALT Alkaline Phosphatase Lactate Dehydrogenase Troponin T C-Reactive Protein NT-Pro-B Natriuret Pep Total Protein Albumin LDL Cholesterol Direct Vitamin B12 Crossmatch 11/24/21 11/24/21 11/25/21 16:34 17:57 05:12 WBC RBC 3.11 L Hgb 8.2 L Hct 26.6 L MCV MCH 26 L MCHC RDW 21.3 H Plt Count Seg Neuts % (Manual) Lymphocytes % (Manual) Seg Neutrophils # Man Lymphocytes # (Manual) Monocytes # (Manual) PT INR D-Dimer ABG pH ABG pO2 ABG HCO3 ABG O2 Saturation ABG Base Excess ABG Hemoglobin Oxyhemoglobin Sodium Potassium Chloride Carbon Dioxide BUN Glucose POC Glucose 115 H 110 H Lactic Acid Calcium Phosphorus Magnesium AST ALT Alkaline Phosphatase Lactate Dehydrogenase Troponin T C-Reactive Protein NT-Pro-B Natriuret Pep Total Protein Albumin LDL Cholesterol Direct Vitamin B12 Crossmatch 11/25/21 11/25/21 05:12 11:20 WBC RBC Hgb Hct MCV MCH MCHC RDW Plt Count Seg Neuts % (Manual) Lymphocytes % (Manual) Seg Neutrophils # Man Lymphocytes # (Manual) Monocytes # (Manual) PT INR D-Dimer ABG pH ABG pO2 ABG HCO3 ABG O2 Saturation ABG Base Excess ABG Hemoglobin Oxyhemoglobin Sodium Potassium Chloride Carbon Dioxide BUN 32 H Glucose 118 H POC Glucose 118 H Lactic Acid Calcium 8.2 L Phosphorus Magnesium AST ALT Alkaline Phosphatase Lactate Dehydrogenase Troponin T C-Reactive Protein NT-Pro-B Natriuret Pep Total Protein Albumin LDL Cholesterol Direct Vitamin B12 Crossmatch Allied health notes reviewed: nursing
--- NOTE | 2021-11-25 14:31 | Progress Note ---
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 She was found to be in respiratory distress, initially treated with NRB. Pt was also noted to be septic with radiographic evidence of bilateral PNA Acute Respiratory Failure Septic Shock GBS Bacteremia Bilateral Pneumonia Bilateral Pleural Effusions Right pneumothorax and s/p right chest tube Acute HFrEF DVT- s/p IVC filter Cardiomyopathy (EF reduced to 30-35% on echo this admission) NSVT Tn Elevation (?Type [address] CT in the setting of hypoxia & shock) Anemia GI bleed CAD s/p PCI (2004) CHB s/p PPM ([facility]) Hypothyroidism H/o HTN H/o DM Arthritis Echo reviewed - EF 30-35%, mild diastolic dysfunction, RV mildly dilated, moderate MR, moderate TR, moderate pulmonary HTN w/RVSP 49mmHg, no pericardial effusion, large left pleural effusion. Plan: Per documentation patient awaiting trach and PEG procedure this week Continue metoprolol 12.5 mg p.o. twice daily. May titrate up as needed Not on ASA d/t allergy. Patient S/p IVC filter Continue statin Cardiac status otherwise stable we will see as needed Pt seen in conjunction with Dr. Jaramillo who agrees with the assessment and plan of care. 30minutes of critical care time spent on care and coordination of patient - Patient Problems (1) Acute anemia Current Visit: Yes Status: Acute (2) Acute respiratory failure with hypoxia Current Visit: Yes Status: Acute (3) Bilateral pneumonia Current Visit: Yes Status: Acute Subjective Date of service: 11/25/21 Principal diagnosis: Septic shock; AHRF; Anemia; Pneumonia; L. pleural effusion; HFrEF; Pulm HTN Interval history: Patient remained intubated Sinus 70s-80s on monitor Objective Vital Signs Temp Pulse Pulse Pulse Pulse Pulse Pulse 11/25/21 14:18 11/25/21 14:00 90 11/25/21 13:31 94 H 11/25/21 13:00 83 11/25/21 12:30 85 11/25/21 12:20 11/25/21 12:00 98.4 F 86 79 79 79 93 H 79 11/25/21 11:30 84 11/25/21 11:00 93 H 11/25/21 10:30 94 H 11/25/21 10:20 80 11/25/21 10:06 76 11/25/21 10:00 76 11/25/21 09:30 80 11/25/21 09:03 93 H 11/25/21 09:00 95 H 11/25/21 08:31 91 H 11/25/21 08:27 91 H 11/25/21 08:00 96.4 F L 94 H 79 79 79 79 79 11/25/21 07:30 68 11/25/21 07:00 65 11/25/21 06:30 66 11/25/21 06:00 68 11/25/21 05:30 72 11/25/21 05:00 74 11/25/21 04:30 80 11/25/21 04:27 80 11/25/21 04:00 98.4 F 87 74 11/25/21 03:30 105 H 11/25/21 03:00 111 H 11/25/21 02:31 101 H 11/25/21 02:00 98 H 11/25/21 01:31 85 11/25/21 01:00 71 11/25/21 00:30 72 11/25/21 00:07 67 11/25/21 00:00 98.3 F 71 90 11/24/21 23:53 70 11/24/21 23:30 67 11/24/21 23:00 67 11/24/21 22:30 69 11/24/21 22:01 84 11/24/21 21:30 100 H 11/24/21 21:29 98 H 11/24/21 21:00 90 11/24/21 20:30 93 H 11/24/21 20:20 93 H 11/24/21 20:01 95 H 11/24/21 20:00 93 H 96 H 11/24/21 19:54 98.8 F 11/24/21 19:30 83 11/24/21 19:00 77 11/24/21 18:30 79 11/24/21 18:00 81 11/24/21 17:30 83 11/24/21 17:00 92 H 11/24/21 16:44 99.2 F 11/24/21 16:35 81 11/24/21 16:30 82 11/24/21 16:01 90 02/07/22 16:00 90 90 11/24/21 15:30 78 11/24/21 15:00 78 Resp BP Pulse Ox 11/25/21 14:18 20 11/25/21 14:00 15 137/69 98 11/25/21 13:31 13 135/78 99 11/25/21 13:00 19 135/64 98 11/25/21 12:30 14 123/72 96 11/25/21 12:20 14 11/25/21 12:00 25 H 133/62 95 11/25/21 11:30 15 129/61 93 11/25/21 11:00 20 139/70 93 11/25/21 10:30 35 H 166/119 98 11/25/21 10:20 108/48 100 11/25/21 10:06 108/48 11/25/21 10:00 14 108/48 99 11/25/21 09:30 16 125/52 100 11/25/21 09:03 14 100 11/25/21 09:00 22 154/74 96 11/25/21 08:31 16 182/91 98 11/25/21 08:27 105/51 99 11/25/21 08:00 14 105/51 100 11/25/21 07:30 14 105/50 100 11/25/21 07:00 14 106/50 100 11/25/21 06:30 14 104/53 100 11/25/21 06:00 14 98/47 100 11/25/21 05:30 14 100/48 100 11/25/21 05:00 14 101/50 99 11/25/21 04:30 14 102/49 99 11/25/21 04:27 102/53 100 11/25/21 04:00 14 102/53 100 11/25/21 03:30 17 183/93 77 L 11/25/21 03:00 14 190/122 92 11/25/21 02:31 32 H 192/101 95 11/25/21 02:00 20 170/80 95 11/25/21 01:31 17 151/77 100 11/25/21 01:00 14 117/45 97 11/25/21 00:30 14 131/51 98 11/25/21 00:07 111/43 97 02/08/22 00:00 14 122/54 99 02/07/22 23:53 14 111/43 99 11/24/21 23:30 14 111/43 97 11/24/21 23:00 14 108/38 96 11/24/21 22:30 14 103/38 96 11/24/21 22:01 12 135/47 98 11/24/21 21:30 15 183/69 99 11/24/21 21:29 163/55 11/24/21 21:00 15 163/55 98 11/24/21 20:30 16 171/60 98 11/24/21 20:20 171/60 99 11/24/21 20:01 22 169/74 97 11/24/21 20:00 16 96 11/24/21 19:54 11/24/21 19:30 14 142/59 99 11/24/21 19:00 14 119/48 100 11/24/21 18:30 14 127/51 99 11/24/21 18:00 14 124/48 99 11/24/21 17:30 14 127/48 99 11/24/21 17:00 17 166/59 99 11/24/21 16:44 11/24/21 16:35 134/43 99 11/24/21 16:30 14 134/43 98 11/24/21 16:01 15 150/59 99 11/24/21 16:00 21 96 11/24/21 15:30 14 123/42 99 11/24/21 15:00 14 122/41 98 - Physical Examination General: Other (intubated) HEENT: Positive: Normocephaly Neck: Positive: neck supple, trachea midline Cardiac: Positive: Reg Rate and Rhythm Lungs: Positive: Ventilated Respirations Neuro: Positive: Other (intubated) Abdomen: Positive: Soft Skin: Negative: Rash, Wound Musculoskeletal: No Fluid Collection Extremities: Present: lower extr. pulses, edema - Labs and Meds CBC 11/25/21 Range/Units 05:12 WBC 8.2 (4.5-11.0) K/mm3 RBC 3.11 L (3.65-5.03) M/mm3 Hgb 8.2 L (10.1-14.3) gm/dl Hct 26.6 L (30.3-42.9) % Plt Count 244 (140-440) K/mm3 Comprehensive Metabolic Panel 11/25/21 Range/Units 05:12 Sodium 137 (137-145) mmol/L Potassium 4.5 (3.6-5.0) mmol/L Chloride 104.5 (98-107) mmol/L Carbon Dioxide 25 (22-30) mmol/L BUN 32 H (7-17) mg/dL Creatinine 1.0 (0.6-1.2) mg/dL Glucose 118 H (65-100) mg/dL Calcium 8.2 L (8.4-10.2) mg/dL - Imaging and Cardiology EKG: report reviewed, image reviewed Stress echo: report reviewed Echo: report reviewed Cardiac cath: report reviewed - Telemetry EKG Rhythm: Sinus Rhythm - EKG Sinus rhythms and dysrhythmias: sinus rhythm Ventricular dysrhythmias: ventricular premature com - Allied health notes Allied health notes reviewed: nursing
--- NOTE | 2021-11-25 15:15 | XRay Report ---
CHEST 1 VIEW INDICATION / CLINICAL INFORMATION: vent, PNA. COMPARISON: Chest x-ray 11/16/2021 FINDINGS: SUPPORT DEVICES: Stable, satisfactory device positioning. HEART / MEDIASTINUM: No significant abnormality. LUNGS / PLEURA: Dependent pleural fluid collections and bibasilar atelectatic changes suggests minima l change. No pneumothorax. ADDITIONAL FINDINGS: Cardiac pacemaker stable. IMPRESSION: 1. Persistent bilateral pleural fluid collections and bibasilar lung opacities minimal change from co mparison. If any change the right-sided pleural fluid collection may have minimally increased in size . 2. Stable tubes and lines. Signer Name: Adebayo Del Real II, MD Signed: 11/23/2021 2:26 AM Workstation Name: [id number]
--- NOTE | 2021-11-25 16:35 | Progress Note ---
<MAYCOLJASBIR Maria TeresaMarissa - Last Filed: 11/25/21 16:35> Assessment and Plan Assessment and plan: This is a 81-year-old female with known history of diabetes mellitus, hypertension, PPM, and arthritis admitted for sepsis and acute hypoxia respiratory failure 2/2 bilateral pneumonia requiring intubation and ventilatory support Assessment and Plan Neuro : Acute encephalopathy -Neurology consulted, appreciate recommendations -CT brain showed no acute events -EEG interpreted as abnormal record due to diffuse slowing and therefore5 height noted throughout the recording, suggestive of encephalopathic process and/or drug effect, possibilities of postictal state cannot be totally excluded. Clinical correlation is in order -MRI brain not obtained-> patient has metal in her body -Repeat CT head with no acute findings -Reorientation as needed -Ammonia 42, B12 1823, TSH 1.5 -BuSpar, fentanyl patch, Seroquel, [place] Cardio: Heart failure with reduced EF, h/o chronic heart block s/p PPM, HTN/CAD s/p PCI (2004) -s/p vasopressor support with levophed -map goal >65 -11/04 echocardiogram shows EF 30 to 35% -Cardiology consulted, appreciate recommendations -Continue beta-charleen and statin therapy -Not on aspirin due to allergy -Statins on hold due to elevated LFTs -Blood pressure monitor per protocol -Resume home antihypertensives as needed Resp: Acute hypoxic respiratory failure secondary to bilateral pneumonia, bilateral pleural effusion. Right pneumothorax (resolved) -COVID-19 PCR negative -Intubated on 11/06 with 6.00 ETT at 18 at the lip and changed over bougie on 11/11-7.50 ETT at 20 at the lip -A.m. vent settings: Assist-control rate 14, tidal volume 400, PEEP 6, FiO2 30 % -See RT notes for titration -Failed PSV again -Surgery consult for trach -Scheduled for tomorrow -S/p bedside bronchoscopy on 11/11 complicated by pneumothorax -S/p chest tube placement for right pneumothorax and dislodgment by patient on 11/15 -ABG/CXR per CCM -VAP bundle -Right chest wall ultrasound shows pleural effusion -SPO2 monitoring -Mucomyst every 8 -Albuterol every 8 GI: S/p GI bleed, duodenal ulcer,transaminitis -GI consulted, appreciate recommendations -Nutrition consult for tube feeding -BR: Senokot, MiraLAX -Surgery consult for PEG -Scheduled for tomorrow -H2 charleen -Carafate -24-hour -61 ml -BM 11/23 -Gastric occult positive : Urinary retention -Gamble catheter -Strict intake and output -Trend BMP ID: Septic shock, POA, bilateral pneumonia, bacteremia -Infectious disease consulted, appreciate recommendations -COVID-19 PCR negative -Presented with fevers, leukocytosis and hypotension -11/04 blood cultures positive with a group B strep bacteremia however repeat blood cultures on the with no growth to date -Echo showed no evidence of vegetation -ABX therapy: Ceftriaxone (), vancomycin (11/05, ), clindamycin ), cefepime , ) -Monitor WBC and fever curve -Recultured on 11/11 with NGTD -Bedside bronchoscopy for mucous plug on CXR 11/11 Heme: Acute DVT in the right external iliac vein, common femoral vein, superior aspect of femoral vein, Acute microcytic anemia -Evidenced on bilateral upper lower extremity ultrasound -S/p 2 unit PRBC -Trend CBC -Transfuse for hemoglobin less than 7 -S/p IVC filter Endo: h/o DM and hypothyroidism -Continue home Synthroid -SSI -Accu-Cheks every 6 -Avoid hypoglycemia The high probability of a clinically significant, sudden or life threatening deterioration of the [multi] system(s) required my full and direct attention, intervention and personal management. The aggregate critical care time was [60] minutes. This time is in addition to time spent performing reported procedures but includes the following: [x] Data Review and interpretation [x] Patient assessment and monitoring of vital signs [x] Documentation [x] Medication orders and management Disposition Plan: icu Total Time Spent with Patient (Minutes): 60 History Interval history: This is an 82-year-old female with DM, HTN , PPM and arthritis who presented to the emergency department on 11/04 for shortness of breath ongoing for the past 3 days, cough and according to family a fever of 102.2. Upon arrival of EMS patient was found to be tachypneic and hypoxic with SPO2 of 76% on room air which later improved to 88% on nonrebreather. Work-up in the emergency department included a CXR which showed bilateral interstitial pulmonary edema with bilateral pleural effusions and bibasilar opacities, leukocytosis and anemia with a hemoglobin of 6.1. Patient was admitted to the hospitalist service with acute anemia, acute hypoxic respiratory failure, bilateral pneumonia and COVID-19 PUI with consults to pulmonology, infectious disease and later cardiology. Patient was eventually intubated in the emergency department on 11/06. Hospital Course to date: 11/04/2021: Empiric therapy with iv levaquin/vancomycin. COVID PCR pending. Will consult ID. PCCM consulted, will follow recs. Hypotensive this AM, ordered bolus and fluids at 150 cc/hr. May require pressor support if bp does not improve. 11/05/2021: GBS on bcx +, currently on rocephin IV. Currently on bipap due to respiratory distress overnight. Worsening BL opacities on CXR. May be volume overload vs pneumonia. Unfortunately bp too low for lasix at this point. WIll continue levophed and bipap. Once able to tolerate, may do trial of albumin/lasix. Call attempt made to Niraj, no response. Will try again tomorrow to update. 11/06/2021: Decompensated overnight requiring intubation. CXR shows worsening interstitial infiltrates. Currenlty on dopamine, levophed, vasopressin. PICC line ordered. Advised RN to place gamble for I/O monitoring. Would benefit from diuresis but very volume overloaded. Prognosis guarded 11/08: Off sedation this am, remains unresponsive only grimace to pain. Hold all sedatives agents for now, patient is off pressors this am. Hypernatremia from today's lab- D5W X1bag, and low K repleted, repeat lab in the am. Severe constipation also noted from KUB, BR added. 11/09: Sudden SPO2 drop in the 60s this am. Patient was manually bagged and deep suctioned. Patient is currently stable on the vent, repeat CXR with no significant change. D/w CCM Mucomyst and brochodilator added. Patient mentation is unchanged, continue to hold off on sedative agents. Neurology consulted. 11/10: Acute DVT noted on bilateral lower extremity Doppler ultrasound therefore she was started on Lovenox treatment dose. Failed SBT. Hypernatremia and hyperchloremia noted, free water flush adjusted. 11/11: Patient noted to be febrile with increasing of the cytosis, UA/BC sent and CXR ordered. ID escalated antibiotics to cefepime. CXR demonstrated mucous p lug, bedside bronchoscopy was performed and O ETT was changed over bougie from 6 cm to 7.5. Patient was noted to have a pneumothorax postprocedure and chest tube was placed. Family updated by [facility]. Free water flush increased and will add Jaswant supplementation. 11/12: Patient not noted to follow commands, hypernatremia worsen/persist, increasing free water flush, potassium and magnesium and phosphorus repleted. Hemoglobin noted to be 7.1/24.5 from 7.5 yesterday. We will continue to trend and monitor. Vent changes per CCM. Repeat CXR showed no residual pneumothorax. Consider waterseal tomorrow. Given persistent leukocytosis antibiotics escalated to cefepime per ID. 11/13: Remains on cefepime and vancomycin, vent changes per CCM. Anemia noted and given 1 unit PRBC. And beta-charleen held in setting of Levophed drip infusing. Remains on fentanyl drip. 11/14: Patient put on CPAP trial by [facility], will continue chest tube until after extubation. Will rest on assist control. CT brain was cancelled by radio interference trouble shooter and reordered. 11/15: Patient removed chest tube overnight. Will obtain cxr. remains on low dose levo. CTH completed with no acute findings. RT to place on CPAP. 11/16: Hypernatremia/hyperchloremia noted on the increase of day water flushes. Anemia noted and ordered PRBC. asked RT to place on cpap but not done yet 11/17: Patient remains on the vent, awake and following commands. H&H stable s/p 2units PRBCs. GI on consult, no intervention at this time. Will continue protonix gtt and serial H&H Q6hrs. Keep patient NPO for now, D5w added for hypernatremia and NPO status. Plan for IVC filter placement today by Vascular. 11/18: Patient is s/p IVC filter. H&H continue to trend down, hbg 6.1 this am, 1 unit of PRBCs ordered. Plan for possible EGD today by GI. Keep patient NPO, continue PPI drip and serial H&H Q6hrs. Electrolytes repleted, repeat lab in the am 11/19: S/p EGD- larger duodenal ulcer noted, see operative note. GI recommendations noted also noted. H&H stable this am. Keep patient on protonix gtt for now. Will keep patient NPO, continue IVF and serial H&H for now. Electrolytes repleted, repeat labs in the am 11/20: Very agitated and restless this am, fentanyl gtt resumed. Patient remains on protonix gtt, H&H remains stable. Will switch protonix gtt to IV BID, continue carafate and okay to resume meds at this time. Will F/u with GI to see if TF can be resumed. Gamble was reinserted overnight for retention. Electrolytes repleted, repeat in the am. Plan for possible PST today for possible extubation per CCM. 11/21: Patient is now on seroquel and patient's home buspar resumed. Patient more calm this morning, fentanyl gtt is off. H&H remains stable and patient is tolerating TF. Patient had a runs of Vtach/PVCs this am, BB added per Cardio. Continue daily PS and wean trial for possible extubation. 11/22: Back on fentanyl gtt overnight , RASS o to -1, following commands. Patient failed PST this am due to increased work of breathing and low SPO2, ABG pending. Patient is also with worsen pitting edema, lasix is still on hold. Will discuss with cardio and CCM to possibly resume lasix. 11/23: MARIA DEL CARMEN overnight. Patient failed PST again this am. Per CCM plan for possible trach and PEG, hold off on IV lasix for now. General surgery consulted and nilda noel is aware of possible Trach and PEG. 11/24: Trach/PEG pending this week, continue SBT/SAT as tolerated. No acute events reported overnight. 11/25: Patient was n.p.o. overnight and will remain n.p.o. tonight for trach/PEG tomorrow morning. She failed to support trial again. KUB obtained due to dis tended belly. Hospitalist Physical - Constitutional Vitals: Temp Pulse Resp BP Pulse Ox 98.4 F 90 20 137/69 98 11/25/21 12:00 11/25/21 14:00 11/25/21 14:18 11/25/21 14:00 11/25/21 14:00 General appearance: Present: no acute distress, other (On the vent) - EENT Eyes: Present: PERRL, EOM intact ENT: hearing intact - Neck Neck: Present: normal ROM - Respiratory Respiratory effort: normal Respiratory: bilateral: diminished - Cardiovascular Rhythm: regular Heart Sounds: Present: S1 & S2. Absent: systolic murmur, diastolic murmur - Extremities Extremities: no ischemia, pulses intact, pulses symmetrical, No edema, normal temperature, normal color Peripheral Pulses: within normal limits - Abdominal General gastrointestinal: soft, non-tender, non-distended, normal bowel sounds - Integumentary Integumentary: Present: warm, dry - Psychiatric Psychiatric: cooperative - Neurologic Neurologic: CNII-XII intact, no focal deficits, moves all extremities - Allied Health Allied health notes reviewed: nursing, RT, social work HEART Score - HEART Score Troponin: Troponin T 0.033 ng/mL (0.00-0.029) H 11/05/21 06:11 Results - Labs CBC & Chem 7: 11/25/21 05:12 11/25/21 05:12 Labs: Laboratory Last Values WBC 8.2 K/mm3 (4.5-11.0) 11/25/21 05:12 RBC 3.11 M/mm3 (3.65-5.03) L 11/25/21 05:12 Hgb 8.2 gm/dl (10.1-14.3) L 11/25/21 05:12 Hct 26.6 % (30.3-42.9) L 11/25/21 05:12 MCV 85 fl (79-97) 11/25/21 05:12 MCH 26 pg (28-32) L 11/25/21 05:12 MCHC 31 % (30-34) 11/25/21 05:12 RDW 21.3 % (13.2-15.2) H 11/25/21 05:12 Plt Count 244 K/mm3 (140-440) 11/25/21 05:12 Add Manual Diff Complete 11/16/21 15:25 Total Counted 100 11/16/21 15:25 Seg Neutrophils % Director Call Center Sales 11/06/21 15:50 Seg Neuts % (Manual) 87.0 % (40.0-70.0) H 11/16/21 15:25 Band Neutrophils % 0 % 11/16/21 15:25 Lymphocytes % (Manual) 8.0 % (13.4-35.0) L 11/16/21 15:25 Reactive Lymphs % (Man) 0 % 11/16/21 15:25 Monocytes % (Manual) 5.0 % (0.0-7.3) 11/16/21 15:25 Eosinophils % (Manual) 0 % (0.0-4.3) 11/16/21 15:25 Basophils % (Manual) 0 % (0.0-1.8) 11/16/21 15:25 Metamyelocytes % 0 % 11/16/21 15:25 Myelocytes % 0 % 11/16/21 15:25 Promyelocytes % 0 % 11/16/21 15:25 Blast Cells % 0 % 11/16/21 15:25 Nucleated RBC % Not Reportable 11/16/21 15:25 Seg Neutrophils # Man 15.0 K/mm3 (1.8-7.7) H 11/16/21 15:25 Band Neutrophils # 0.0 K/mm3 11/16/21 15:25 Lymphocytes # (Manual) 1.4 K/mm3 (1.2-5.4) 11/16/21 15:25 Abs React Lymphs (Man) 0.0 K/mm3 11/16/21 15:25 Monocytes # (Manual) 0.9 K/mm3 (0.0-0.8) H 11/16/21 15:25 Eosinophils # (Manual) 0.0 K/mm3 (0.0-0.4) 11/16/21 15:25 Basophils # (Manual) 0.0 K/mm3 (0.0-0.1) 11/16/21 15:25 Metamyelocytes # 0.0 K/mm3 11/16/21 15:25 Myelocytes # 0.0 K/mm3 11/16/21 15:25 Promyelocytes # 0.0 K/mm3 11/16/21 15:25 Blast Cells # 0.0 K/mm3 11/16/21 15:25 WBC Morphology Not Reportable 11/16/21 15:25 Hypersegmented Neuts Not Reportable 11/16/21 15:25 Hyposegmented Neuts Not Reportable 11/16/21 15:25 Hypogranular Neuts Not Reportable 11/16/21 15:25 Smudge Cells Not Reportable 11/16/21 15:25 Toxic Granulation Not Reportable 11/16/21 15:25 Toxic Vacuolation Not Reportable 11/16/21 15:25 Dohle Bodies Not Reportable 11/16/21 15:25 Pelger-Huet Anomaly Not Reportable 11/16/21 15:25 Irina Rods Not Reportable 11/16/21 15:25 Platelet Estimate Consistent w auto 11/16/21 15:25 Clumped Platelets Rare 11/16/21 15:25 Plt Clumps, EDTA Not Reportable 11/16/21 15:25 Large Platelets Not Reportable 11/16/21 15:25 Giant Platelets Not Reportable 11/16/21 15:25 Platelet Satelliting Not Reportable 11/16/21 15:25 Plt Morphology Comment Not Reportable 11/16/21 15:25 RBC Morphology Not Reportable 11/16/21 15:25 Dimorphic RBCs Not Reportable 11/16/21 15:25 Polychromasia Not Reportable 11/16/21 15:25 Hypochromasia 2+ 11/16/21 15:25 Poikilocytosis Not Reportable 11/16/21 15:25 Anisocytosis 2+ 11/16/21 15:25 Microcytosis Not Reportable 11/16/21 15:25 Macrocytosis Not Reportable 11/16/21 15:25 Spherocytes Not Reportable 11/16/21 15:25 Pappenheimer Bodies Not Reportable 11/16/21 15:25 Sickle Cells Not Reportable 11/16/21 15:25 Target Cells 2+ 11/16/21 15:25 Tear Drop Cells Not Reportable 11/16/21 15:25 Ovalocytes Not Reportable 11/16/21 15:25 Helmet Cells Not Reportable 11/16/21 15:25 [place] Bodies Not Reportable 11/16/21 15:25 [place] Rings Not Reportable 11/16/21 15:25 [place] Cells Not Reportable 11/16/21 15:25 Bite Cells Not Reportable 11/16/21 15:25 Crenated Cell Not Reportable 11/16/21 15:25 Elliptocytes Not Reportable 11/16/21 15:25 Acanthocytes (Spur) Not Reportable 11/16/21 15:25 Rouleaux Not Reportable 11/16/21 15:25 Hemoglobin C Crystals Not Reportable 11/16/21 15:25 Schistocytes Not Reportable 11/16/21 15:25 Malaria parasites Not Reportable 11/16/21 15:25 Godfrey Bodies Not Reportable 11/16/21 15:25 Hem Pathologist Commnt No 11/16/21 15:25 PT 18.6 Sec. (12.2-14.9) H 11/03/21 22:32 INR 1.40 (0.87-1.13) H 11/03/21 22:32 APTT 28.9 Sec. (24.2-36.6) 11/03/21 22:32 D-Dimer 2655.00 ng/mlDDU (0-234) H 11/11/21 04:28 ABG pH 7.449 pH Units (7.350-7.450) 11/21/21 16:00 ABG pCO2 32.1 mm Hg 11/21/21 16:00 ABG pO2 114.2 mm Hg (80.0-90.0) H 11/21/21 16:00 ABG HCO3 21.8 mmol/L (20.0-26.0) 11/21/21 16:00 ABG O2 Saturation 98.3 % (95.0-99.0) 11/21/21 16:00 ABG O2 Content 12.5 (0.0-44) 11/21/21 16:00 ABG Base Excess -1.7 mmol/L (-2.0-3.0) 11/21/21 16:00 ABG Hemoglobin 9.1 gm/dl (12.0-16.0) L 11/21/21 16:00 ABG Carboxyhemoglobin 1.9 % (0.0-5.0) 11/21/21 16:00 ABG Methemoglobin 0.5 % (0.0-1.5) 11/21/21 16:00 Oxyhemoglobin 96.0 % (95.0-99.0) 11/21/21 16:00 FiO2 30 % 11/21/21 16:00 Sodium 137 mmol/L (137-145) 11/25/21 05:12 Potassium 4.5 mmol/L (3.6-5.0) 11/25/21 05:12 Chloride 104.5 mmol/L (98-107) 11/25/21 05:12 Carbon Dioxide 25 mmol/L (22-30) 11/25/21 05:12 Anion Gap 12 mmol/L 11/25/21 05:12 BUN 32 mg/dL (7-17) H 11/25/21 05:12 Creatinine 1.0 mg/dL (0.6-1.2) 11/25/21 05:12 Estimated GFR 53 ml/min 11/25/21 05:12 BUN/Creatinine Ratio 32 % 11/25/21 05:12 Glucose 118 mg/dL (65-100) H 11/25/21 05:12 POC Glucose 118 mg/dL (70-105) H 11/25/21 11:20 Lactic Acid 3.70 mmol/L (0.7-2.0) H* 11/03/21 22:32 Calcium 8.2 mg/dL (8.4-10.2) L 11/25/21 05:12 Phosphorus 3.40 mg/dL (2.5-4.5) 11/25/21 05:12 Magnesium 1.70 mg/dL (1.7-2.3) 11/25/21 05:12 Ferritin 52.6 ng/mL (10.0-200.0) 11/05/21 06:11 Total Bilirubin 0.50 mg/dL (0.1-1.2) 11/17/21 05:56 Direct Bilirubin < 0.2 mg/dL (0-0.2) 11/11/21 04:28 Indirect Bilirubin 0.1 mg/dL 11/11/21 04:28 AST 36 units/L (5-40) 11/17/21 05:56 ALT 47 units/L (7-56) 11/17/21 05:56 Alkaline Phosphatase 107 units/L (35-129) 11/17/21 05:56 Ammonia 42.0 umol/L (25-60) 11/10/21 14:08 Lactate Dehydrogenase 187 units/L (91-180) H 11/05/21 06:11 Troponin T 0.033 ng/mL (0.00-0.029) H 11/05/21 06:11 C-Reactive Protein 22.20 mg/dL (0.00-1.30) H 11/05/21 06:11 NT-Pro-B Natriuret Pep 7895 pg/mL (0-900) H 11/03/21 22:32 Total Protein 5.1 g/dL (6.3-8.2) L 11/17/21 05:56 Albumin 2.2 g/dL (3.9-5) L 11/17/21 05:56 Albumin/Globulin Ratio 0.8 % 11/17/21 05:56 Triglycerides 66 mg/dL (2-149) 11/03/21 22:32 Cholesterol 80 mg/dL (50-199) 11/03/21 22:32 LDL Cholesterol Direct 34 mg/dL (50-130) L 11/03/21 22:32 HDL Cholesterol 42 mg/dL (40-59) 11/03/21 22:32 Cholesterol/HDL Ratio 1.90 % 11/03/21 22:32 Vitamin B12 1823 pg/mL (211-911) H 11/10/21 14:08 TSH 1.510 mlU/mL (0.270-4.200) 11/10/21 14:08 Urine Color Yellow (Yellow) 11/11/21 09:00 Urine Turbidity Slightly-cloudy (Clear) 11/11/21 09:00 Urine pH 5.0 (5.0-7.0) 11/11/21 09:00 Ur Specific [place] 1.009 (1.003-1.030) 11/11/21 09:00 Urine Protein <15 mg/dl mg/dL (Negative) 11/11/21 09:00 Urine Glucose (UA) Neg mg/dL (Negative) 11/11/21 09:00 Urine Ketones Neg mg/dL (Negative) 11/11/21 09:00 Urine Blood Mod (Negative) 11/11/21 09:00 Urine Nitrite Neg (Negative) 11/11/21 09:00 Urine Bilirubin Neg (Negative) 11/11/21 09:00 Urine Urobilinogen < 2.0 mg/dL (<2.0) 11/11/21 09:00 Ur Leukocyte Esterase Neg (Negative) 11/11/21 09:00 Urine WBC (Auto) < 1.0 /HPF (0.0-6.0) 11/11/21 09:00 Urine RBC (Auto) < 1.0 /HPF (0.0-6.0) 11/11/21 09:00 Coronavirus (PCR) Negative (Negative) 11/10/21 08:30 Blood Type O POSITIVE 11/18/21 10:45 Antibody Screen Negative 11/18/21 10:45 Crossmatch See Detail 11/18/21 10:45 Gamble/IV: Voiding Method Indwelling Catheter Active Medications - Current Medications Current Medications: Generic Name Dose Route Start Last Admin Trade Name Freq PRN Reason Stop Dose Admin Acetaminophen 650 mg 11/04/21 02:03 11/23/21 16:26 Acetaminophen 325 Mg Tab PO 650 mg Q6H PRN Administration Pain MILD(1-3)/Fever >100.5/RODRIGUEZ Hydrocodone Bitart/Acetaminophen 1 each 11/21/21 10:00 11/25/21 14:18 Hydrocodone/Acetaminophen 10-325mg Tab FEEDTUBE 1 each TID YOSSI Administration Lipase/Protease/Amylase 1 each 11/08/21 11:09 Lipase 10,500/Protease 25,000/Amylase 43,750 (Units) Dr Cap FEEDTUBE PRN PRN For Clogged Feeding Tube Buspirone HCl 7.5 mg 11/17/21 22:00 11/25/21 10:05 Buspirone 5 Mg Tab PO 7.5 mg BID YOSSI Administration Dextrose 0 ml 11/10/21 10:52 11/21/21 16:27 Dextrose 10% *Hypoglycemia IV 50 ml PRN PRN Administration Hypoglycemia Fentanyl 1 applic 11/17/21 13:00 11/23/21 09:29 Fentanyl 25 Mcg/Hr Patch 72hr TD 1 applic Q3D YOSSI Administration Hydrophilic Ointment 1 applic 11/06/21 04:02 Lip Therapy Vaseline TP Q2HR PRN Dry Lips NORepinephrine/NS 8 MG-250 ML 8 mg in 250 mls @ 3.75 mls/hr 11/05/21 09:00 11/18/21 03:26 Norepinephrine/Ns 8 Mg-250 Ml (Double Conc) IV 0 mcg/min TITRATE YOSSI 0 mls/hr Titration Protocol 2 MCG/MIN Fentanyl Citrate 2,000 mcg in 100 mls @ 3.12 mls/hr 11/17/21 13:00 11/22/21 18:04 Fentanyl Drip Premix IV 0 mcg/kg/hr TITR YOSSI 0 mls/hr Titration Protocol 1 MCG/KG/HR Insulin Human Lispro 0 unit 11/06/21 12:00 11/25/21 11:41 Insulin Lispro 100 Unit/Ml SUB-Q Not Given Q6HR [facility] Protocol Lansoprazole 30 mg 11/24/21 22:00 11/25/21 10:05 Lansoprazole 30 Mg Solutab FEEDTUBE 30 mg BID YOSSI Administration Levothyroxine Sodium 125 mcg 11/05/21 07:00 11/25/21 05:00 Levothyroxine 125 Mcg Tab PO 125 mcg DAILY@0600 [facility] Administration Magnesium Hydroxide 30 ml 11/04/21 02:03 Magnesium Hydroxide (Mom) Oral Liqd Udc PO Q4H PRN Constipation Metoprolol Tartrate 12.5 mg 11/21/21 10:00 11/25/21 10:06 Metoprolol Tartrate 25 Mg Tab PO 12.5 mg BID [facility] Administration Multi-Ingred Cream/Lotion/Oil/Oint 1 applic 11/06/21 04:02 Mineral Oil/Petrolatum, White Ophth Oint 3.5 Gm OU Q4HR PRN Dry Eye(s) Ondansetron HCl 4 mg 11/04/21 02:03 11/05/21 15:48 Ondansetron 4 Mg/2 Ml Inj IV 4 mg Q8H PRN Administration Nausea And Vomiting Pravastatin Sodium 20 mg 11/18/21 22:00 11/24/21 21:33 Pravastatin 20 Mg Tab PO 20 mg QHS [facility] Administration Quetiapine Fumarate 50 mg 11/20/21 22:00 11/25/21 10:05 Quetiapine 25 Mg Tab PO 50 mg BID [facility] Administration Senna 17.6 mg 11/08/21 22:00 11/25/21 11:40 Sennosides Oral Liqd 8.8 Mg/5 Ml Oral Liqd PO Not Given Q12HR YOSSI Simple Syrup 15 ml 11/08/21 11:09 Simple Syrup 15 Ml FEEDTUBE PRN PRN Hypoglycemia Simple Syrup 30 ml 11/08/21 11:09 Simple Syrup 15 Ml FEEDTUBE PRN PRN Hypoglycemia Sodium Bicarbonate 325 mg 11/08/21 11:09 Sodium Bicarbonate 325 Mg Tab FEEDTUBE PRN PRN For Clogged Feeding Tube Sodium Chloride 10 ml 11/04/21 10:00 11/25/21 14:18 Sodium Chloride 0.9% 10 Ml Flush Syringe IV 10 ml BID YOSSI Administration Sodium Chloride 10 ml 11/04/21 02:03 Sodium Chloride 0.9% 10 Ml Flush Syringe IV PRN PRN LINE FLUSH Sodium Chloride 10 ml 11/10/21 09:57 11/17/21 20:47 Sodium Chloride 0.9% 50 Ml Ivpb IV 10 ml PRN PRN Administration FLUSH Sucralfate 1 gm 11/18/21 16:30 11/25/21 12:19 Sucralfate 1 Gm/10 Ml Oral Liqd PO 1 gm ACHS YOSSI Administration Nutrition/Malnutrition Assess - Dietary Evaluation Nutrition/Malnutrition Findings: Nutrition Notes Start: 11/04/21 17:16 Freq: Status: Active Protocol: Document 11/24/21 14:48 YOVANI (Rec: 11/24/21 14:56 YOVANI [id number]) Nutrition Notes Initial or Follow up Reassessment Current Diagnosis Diabetes,Hypertension,Heart Failure,Respiratory Failure Other Pertinent Diagnosis Bilat pneu, (R) pneumothorax, Septic shock Current Diet TF - Glucerna 1.2 at 42ml/hr Labs/Tests Reviewed Pertinent Medications Sucralfate Height 5 ft Weight 62.4 kg [place] Body Weight (kg) 45.45 BMI 26.9 Weight Status Appropriate Subjective/Other Information Observed TF infusing at goal rate. Pt remains on vent support. Trach/PEG placement pending. Percent of energy/protein needs met: 100% energy 81% pro Burn Absent Trauma Absent #1 Nutrition Diagnosis Inadequate oral intake Diagnosis Progress(for reassessment Continues documentation) Is patient on ventilator? Yes Is Patient Ambulatory and/or Out of Bed No REE-([facility]-confined to bed) 1207.824 Calculation Used for Recommendations [facility] Additional Notes Pro needs 1.2-2 g/k-125g/ day Fluid needs 1ml/kcal Nutrition Intervention Nutrition Support: Continue Glucerna 1.2 at 42ml/ hr with 75ml water flush q4h. Kcal 1,210 Protein (gm) 60 Carbohydrates (gm) 115 Fat (gm) 60 Fluid (mL) 811 Fiber (gm) 16 Goal #1 TF tolerance Goal #2 TF to meet at least 75% energy and pro needs Follow-Up By: 12/01/21 Additional Comments F/U: stable TF, trach/PEG placement, vent status, wt <DALTON,FREDERICK D. - Last Filed: 11/27/21 13:37> Assessment and Plan Assessment and plan: I saw and evaluated the patient. Discussed with the nurse practitioner and agree with their findings and plan as documented in this note. Hospitalist Physical - Constitutional Vitals: Temp Pulse Resp BP Pulse Ox 99.6 F 85 15 110/51 98 11/27/21 12:00 11/27/21 12:46 11/27/21 12:46 11/27/21 12:46 11/27/21 12:46 HEART Score - HEART Score Troponin: Troponin T 0.033 ng/mL (0.00-0.029) H 11/05/21 06:11 Results - Labs CBC & Chem 7: 11/27/21 07:40 11/27/21 07:40 Labs: Laboratory Last Values WBC 7.9 K/mm3 (4.5-11.0) 11/27/21 07:40 RBC 3.18 M/mm3 (3.65-5.03) L 11/27/21 07:40 Hgb 8.5 gm/dl (10.1-14.3) L 11/27/21 07:40 Hct 27.0 % (30.3-42.9) L 11/27/21 07:40 MCV 85 fl (79-97) 11/27/21 07:40 MCH 27 pg (28-32) L 11/27/21 07:40 MCHC 32 % (30-34) 11/27/21 07:40 RDW 21.2 % (13.2-15.2) H 11/27/21 07:40 Plt Count 276 K/mm3 (140-440) 11/27/21 07:40 Add Manual Diff Complete 11/16/21 15:25 Total Counted 100 11/16/21 15:25 Seg Neutrophils % Director Call Center Sales 11/06/21 15:50 Seg Neuts % (Manual) 87.0 % (40.0-70.0) H 11/16/21 15:25 Band Neutrophils % 0 % 11/16/21 15:25 Lymphocytes % (Manual) 8.0 % (13.4-35.0) L 11/16/21 15:25 Reactive Lymphs % (Man) 0 % 11/16/21 15:25 Monocytes % (Manual) 5.0 % (0.0-7.3) 11/16/21 15:25 Eosinophils % (Manual) 0 % (0.0-4.3) 11/16/21 15:25 Basophils % (Manual) 0 % (0.0-1.8) 11/16/21 15:25 Metamyelocytes % 0 % 11/16/21 15:25 Myelocytes % 0 % 11/16/21 15:25 Promyelocytes % 0 % 11/16/21 15:25 Blast Cells % 0 % 11/16/21 15:25 Nucleated RBC % Not Reportable 11/16/21 15:25 Seg Neutrophils # Man 15.0 K/mm3 (1.8-7.7) H 11/16/21 15:25 Band Neutrophils # 0.0 K/mm3 11/16/21 15:25 Lymphocytes # (Manual) 1.4 K/mm3 (1.2-5.4) 11/16/21 15:25 Abs React Lymphs (Man) 0.0 K/mm3 11/16/21 15:25 Monocytes # (Manual) 0.9 K/mm3 (0.0-0.8) H 11/16/21 15:25 Eosinophils # (Manual) 0.0 K/mm3 (0.0-0.4) 11/16/21 15:25 Basophils # (Manual) 0.0 K/mm3 (0.0-0.1) 11/16/21 15:25 Metamyelocytes # 0.0 K/mm3 11/16/21 15:25 Myelocytes # 0.0 K/mm3 11/16/21 15:25 Promyelocytes # 0.0 K/mm3 11/16/21 15:25 Blast Cells # 0.0 K/mm3 11/16/21 15:25 WBC Morphology Not Reportable 11/16/21 15:25 Hypersegmented Neuts Not Reportable 11/16/21 15:25 Hyposegmented Neuts Not Reportable 11/16/21 15:25 Hypogranular Neuts Not Reportable 11/16/21 15:25 Smudge Cells Not Reportable 11/16/21 15:25 Toxic Granulation Not Reportable 11/16/21 15:25 Toxic Vacuolation Not Reportable 11/16/21 15:25 Dohle Bodies Not Reportable 11/16/21 15:25 Pelger-Huet Anomaly Not Reportable 11/16/21 15:25 Irina Rods Not Reportable 11/16/21 15:25 Platelet Estimate Consistent w auto 11/16/21 15:25 Clumped Platelets Rare 11/16/21 15:25 Plt Clumps, EDTA Not Reportable 11/16/21 15:25 Large Platelets Not Reportable 11/16/21 15:25 Giant Platelets Not Reportable 11/16/21 15:25 Platelet Satelliting Not Reportable 11/16/21 15:25 Plt Morphology Comment Not Reportable 11/16/21 15:25 RBC Morphology Not Reportable 11/16/21 15:25 Dimorphic RBCs Not Reportable 11/16/21 15:25 Polychromasia Not Reportable 11/16/21 15:25 Hypochromasia 2+ 11/16/21 15:25 Poikilocytosis Not Reportable 11/16/21 15:25 Anisocytosis 2+ 11/16/21 15:25 Microcytosis Not Reportable 11/16/21 15:25 Macrocytosis Not Reportable 11/16/21 15:25 Spherocytes Not Reportable 11/16/21 15:25 Pappenheimer Bodies Not Reportable 11/16/21 15:25 Sickle Cells Not Reportable 11/16/21 15:25 Target Cells 2+ 11/16/21 15:25 Tear Drop Cells Not Reportable 11/16/21 15:25 Ovalocytes Not Reportable 11/16/21 15:25 Helmet Cells Not Reportable 11/16/21 15:25 [place] Bodies Not Reportable 11/16/21 15:25 [place] Rings Not Reportable 11/16/21 15:25 [place] Cells Not Reportable 11/16/21 15:25 Bite Cells Not Reportable 11/16/21 15:25 Crenated Cell Not Reportable 11/16/21 15:25 Elliptocytes Not Reportable 11/16/21 15:25 Acanthocytes (Spur) Not Reportable 11/16/21 15:25 Rouleaux Not Reportable 11/16/21 15:25 Hemoglobin C Crystals Not Reportable 11/16/21 15:25 Schistocytes Not Reportable 11/16/21 15:25 Malaria parasites Not Reportable 11/16/21 15:25 [place]frey Bodies Not Reportable 11/16/21 15:25 Hem Pathologist Commnt No 11/16/21 15:25 PT 16.9 Sec. (12.2-14.9) H 11/26/21 05:00 INR 1.24 (0.87-1.13) H 11/26/21 05:00 APTT 29.2 Sec. (24.2-36.6) 11/26/21 05:00 D-Dimer 2655.00 ng/mlDDU (0-234) H 11/11/21 04:28 ABG pH 7.449 pH Units (7.350-7.450) 11/21/21 16:00 ABG pCO2 32.1 mm Hg 11/21/21 16:00 ABG pO2 114.2 mm Hg (80.0-90.0) H 11/21/21 16:00 ABG HCO3 21.8 mmol/L (20.0-26.0) 11/21/21 16:00 ABG O2 Saturation 98.3 % (95.0-99.0) 11/21/21 16:00 ABG O2 Content 12.5 (0.0-44) 11/21/21 16:00 ABG Base Excess -1.7 mmol/L (-2.0-3.0) 11/21/21 16:00 ABG Hemoglobin 9.1 gm/dl (12.0-16.0) L 11/21/21 16:00 ABG Carboxyhemoglobin 1.9 % (0.0-5.0) 11/21/21 16:00 ABG Methemoglobin 0.5 % (0.0-1.5) 11/21/21 16:00 Oxyhemoglobin 96.0 % (95.0-99.0) 11/21/21 16:00 FiO2 30 % 11/21/21 16:00 Sodium 139 mmol/L (137-145) 11/27/21 07:40 Potassium 4.4 mmol/L (3.6-5.0) 11/27/21 07:40 Chloride 105.3 mmol/L (98-107) 11/27/21 07:40 Carbon Dioxide 25 mmol/L (22-30) 11/27/21 07:40 Anion Gap 13 mmol/L 11/27/21 07:40 BUN 27 mg/dL (7-17) H 11/27/21 07:40 Creatinine 0.8 mg/dL (0.6-1.2) 11/27/21 07:40 Estimated GFR > 60 ml/min 11/27/21 07:40 BUN/Creatinine Ratio 34 % 11/27/21 07:40 Glucose 112 mg/dL (65-100) H 11/27/21 07:40 POC Glucose 109 mg/dL (70-105) H 11/27/21 12:04 Lactic Acid 3.70 mmol/L (0.7-2.0) H* 11/03/21 22:32 Calcium 7.6 mg/dL (8.4-10.2) L 11/27/21 07:40 Phosphorus 3.00 mg/dL (2.5-4.5) 11/26/21 05:00 Magnesium 1.70 mg/dL (1.7-2.3) 11/26/21 05:00 Ferritin 52.6 ng/mL (10.0-200.0) 11/05/21 06:11 Total Bilirubin 0.50 mg/dL (0.1-1.2) 11/17/21 05:56 Direct Bilirubin < 0.2 mg/dL (0-0.2) 11/11/21 04:28 Indirect Bilirubin 0.1 mg/dL 11/11/21 04:28 AST 36 units/L (5-40) 11/17/21 05:56 ALT 47 units/L (7-56) 11/17/21 05:56 Alkaline Phosphatase 107 units/L (35-129) 11/17/21 05:56 Ammonia 42.0 umol/L (25-60) 11/10/21 14:08 Lactate Dehydrogenase 187 units/L (91-180) H 11/05/21 06:11 Troponin T 0.033 ng/mL (0.00-0.029) H 11/05/21 06:11 C-Reactive Protein 22.20 mg/dL (0.00-1.30) H 11/05/21 06:11 NT-Pro-B Natriuret Pep 7895 pg/mL (0-900) H 11/03/21 22:32 Total Protein 5.1 g/dL (6.3-8.2) L 11/17/21 05:56 Albumin 2.2 g/dL (3.9-5) L 11/17/21 05:56 Albumin/Globulin Ratio 0.8 % 11/17/21 05:56 Triglycerides 66 mg/dL (2-149) 11/03/21 22:32 Cholesterol 80 mg/dL (50-199) 11/03/21 22:32 LDL Cholesterol Direct 34 mg/dL (50-130) L 11/03/21 22:32 HDL Cholesterol 42 mg/dL (40-59) 11/03/21 22:32 Cholesterol/HDL Ratio 1.90 % 11/03/21 22:32 Vitamin B12 1823 pg/mL (211-911) H 11/10/21 14:08 TSH 1.510 mlU/mL (0.270-4.200) 11/10/21 14:08 Urine Color Yellow (Yellow) 11/11/21 09:00 Urine Turbidity Slightly-cloudy (Clear) 11/11/21 09:00 Urine pH 5.0 (5.0-7.0) 11/11/21 09:00 Ur Specific [place] 1.009 (1.003-1.030) 11/11/21 09:00 Urine Protein <15 mg/dl mg/dL (Negative) 11/11/21 09:00 Urine Glucose (UA) Neg mg/dL (Negative) 11/11/21 09:00 Urine Ketones Neg mg/dL (Negative) 11/11/21 09:00 Urine Blood Mod (Negative) 11/11/21 09:00 Urine Nitrite Neg (Negative) 11/11/21 09:00 Urine Bilirubin Neg (Negative) 11/11/21 09:00 Urine Urobilinogen < 2.0 mg/dL (<2.0) 11/11/21 09:00 Ur Leukocyte Esterase Neg (Negative) 11/11/21 09:00 Urine WBC (Auto) < 1.0 /HPF (0.0-6.0) 11/11/21 09:00 Urine RBC (Auto) < 1.0 /HPF (0.0-6.0) 11/11/21 09:00 Coronavirus (PCR) Negative (Negative) 11/10/21 08:30 Blood Type O POSITIVE 11/18/21 10:45 Antibody Screen Negative 11/18/21 10:45 Crossmatch See Detail 11/18/21 10:45 Gamble/IV: Voiding Method Indwelling Catheter Active Medications - Current Medications Current Medications: Generic Name Dose Route Start Last Admin Trade Name Frank PRN Reason Stop Dose Admin Acetaminophen 650 mg 11/04/21 02:03 11/23/21 16:26 Acetaminophen 325 Mg Tab PO 650 mg Q6H PRN Administration Pain MILD(1-3)/Fever >100.5/RODRIGUEZ Hydrocodone Bitart/Acetaminophen 1 each 11/21/21 10:00 11/27/21 09:11 Hydrocodone/Acetaminophen 10-325mg Tab FEEDTUBE 1 each TID YOSSI Administration Lipase/Protease/Amylase 1 each 11/08/21 11:09 Lipase 10,500/Protease 25,000/Amylase 43,750 (Units) Dr Lema FEEDTUBE PRN PRN For Clogged Feeding Tube Buspirone HCl 7.5 mg 11/17/21 22:00 11/27/21 09:12 Buspirone 5 Mg Tab PO 7.5 mg BID YOSSI Administration Dextrose 0 ml 11/10/21 10:52 11/21/21 16:27 Dextrose 10% *Hypoglycemia IV 50 ml PRN PRN Administration Hypoglycemia Fentanyl 1 applic 11/17/21 13:00 11/23/21 09:29 Fentanyl 25 Mcg/Hr Patch 72hr TD 1 applic Q3D YOSSI Administration Fentanyl 25 mcg 11/26/21 14:01 11/26/21 19:56 Fentanyl 100 Mcg/2 Ml Inj IV 11/28/21 14:00 25 mcg Q4H PRN Administration Pain , Severe (7-10) Furosemide 20 mg 11/27/21 14:00 Furosemide 20 Mg/2 Ml Inj IV 11/29/21 10:01 QDAY YOSSI Hydrophilic Ointment 1 applic 11/06/21 04:02 Lip Therapy Vaseline TP Q2HR PRN Dry Lips Insulin Human Lispro 0 unit 11/06/21 12:00 11/27/21 06:16 Insulin Lispro 100 Unit/Ml SUB-Q Not Given Q6HR [facility] Protocol Lansoprazole 30 mg 11/24/21 22:00 11/27/21 09:12 Lansoprazole 30 Mg Solutab FEEDTUBE 30 mg BID YOSSI Administration Levothyroxine Sodium 125 mcg 11/05/21 07:00 11/27/21 06:03 Levothyroxine 125 Mcg Tab PO 125 mcg DAILY@0600 YOSSI Administration Magnesium Hydroxide 30 ml 11/04/21 02:03 Magnesium Hydroxide (Mom) Oral Liqd Udc PO Q4H PRN Constipation Metoprolol Tartrate 12.5 mg 11/21/21 10:00 11/27/21 09:12 Metoprolol Tartrate 25 Mg Tab PO 12.5 mg BID YOSSI Administration Multi-Ingred Cream/Lotion/Oil/Oint 1 applic 11/06/21 04:02 Mineral Oil/Petrolatum, White Ophth Oint 3.5 Gm OU Q4HR PRN Dry Eye(s) Ondansetron HCl 4 mg 11/04/21 02:03 11/05/21 15:48 Ondansetron 4 Mg/2 Ml Inj IV 4 mg Q8H PRN Administration Nausea And Vomiting Pravastatin Sodium 20 mg 11/18/21 22:00 11/27/21 00:16 Pravastatin 20 Mg Tab PO 20 mg QHS YOSSI Administration Quetiapine Fumarate 50 mg 11/20/21 22:00 11/27/21 09:11 Quetiapine 25 Mg Tab PO 50 mg BID YOSSI Administration Senna 17.6 mg 11/08/21 22:00 11/27/21 09:11 Sennosides Oral Liqd 8.8 Mg/5 Ml Oral Liqd PO 17.6 mg Q12HR YOSSI Administration Simethicone 160 mg 11/26/21 20:00 11/27/21 09:11 Simethicone 80 Mg Chew Tab PO 11/29/21 14:01 160 mg TID YOSSI Administration Simple Syrup 15 ml 11/08/21 11:09 Simple Syrup 15 Ml FEEDTUBE PRN PRN Hypoglycemia Simple Syrup 30 ml 11/08/21 11:09 Simple Syrup 15 Ml FEEDTUBE PRN PRN Hypoglycemia Sodium Bicarbonate 325 mg 11/08/21 11:09 Sodium Bicarbonate 325 Mg Tab FEEDTUBE PRN PRN For Clogged Feeding Tube Sodium Chloride 10 ml 11/04/21 10:00 11/27/21 09:13 Sodium Chloride 0.9% 10 Ml Flush Syringe IV 10 ml BID YOSSI Administration Sodium Chloride 10 ml 11/04/21 02:03 Sodium Chloride 0.9% 10 Ml Flush Syringe IV PRN PRN LINE FLUSH Sodium Chloride 10 ml 11/10/21 09:57 11/17/21 20:47 Sodium Chloride 0.9% 50 Ml Ivpb IV 10 ml PRN PRN Administration FLUSH Sucralfate 1 gm 11/18/21 16:30 11/27/21 09:12 Sucralfate 1 Gm/10 Ml Oral Liqd PO 1 gm ACHS YOSSI Administration Nutrition/Malnutrition Assess - Dietary Evaluation Nutrition/Malnutrition Findings: Nutrition Notes Start: 11/04/21 17:16 Freq: Status: Active Protocol: Document 11/24/21 14:48 VISHALALL (Rec: 11/24/21 14:56 NHALL [id number]) Nutrition Notes Initial or Follow up Reassessment Current Diagnosis Diabetes,Hypertension,Heart Failure,Respiratory Failure Other Pertinent Diagnosis Bilat pneu, (R) pneumothorax, Septic shock Current Diet TF - Glucerna 1.2 at 42ml/hr Labs/Tests Reviewed Pertinent Medications Sucralfate Height 5 ft Weight 62.4 kg [place] Body Weight (kg) 45.45 BMI 26.9 Weight Status Appropriate Subjective/Other Information Observed TF infusing at goal rate. Pt remains on vent support. Trach/PEG placement pending. Percent of energy/protein needs met: 100% energy 81% pro Burn Absent Trauma Absent #1 Nutrition Diagnosis Inadequate oral intake Diagnosis Progress(for reassessment Continues documentation) Is patient on ventilator? Yes Is Patient Ambulatory and/or Out of Bed No REE-([facility]-confined to bed) 1207.824 Calculation Used for Recommendations [facility] Additional Notes Pro needs 1.2-2 g/k-125g/ day Fluid needs 1ml/kcal Nutrition Intervention Nutrition Support: Continue Glucerna 1.2 at 42ml/ hr with 75ml water flush q4h. Kcal 1,210 Protein (gm) 60 Carbohydrates (gm) 115 Fat (gm) 60 Fluid (mL) 811 Fiber (gm) 16 Goal #1 TF tolerance Goal #2 TF to meet at least 75% energy and pro needs Follow-Up By: 12/01/21 Additional Comments F/U: stable TF, trach/PEG placement, vent status, wt
--- NOTE | 2021-11-25 17:03 | XRay Report ---
Abdomen single view INDICATION: Abdominal pain IMPRESSION: The patient is severely rotated which limits distinct evaluation of the location of the e sophagogastric tube. The esophagogastric tube projects over the lower abdomen/upper pelvis the presum ed gastric bubble but this is ultimately nonspecific. Signer Name: Leroy Garcia MD Signed: 11/25/2021 4:58 PM Workstation Name: [id number]
[2021-11-25] MEDS: PRAVASTATIN 20 MG TAB PO SCH (21:25)
[2021-11-26 05:13] LABS: Hematocrit 28.2 % (30.3-42.9); Hemoglobin 8.8 gm/dl (10.1-14.3); Mean Corpuscular HGB Conc 31 % (30-34); Mean Corpuscular Volume 86 fl (79-97); Platelet Count 271 K/mm3 (140-440)
[2021-11-26 05:23] LABS: Red Cell Distribution Width 20.7 % (13.2-15.2)
[2021-11-26 05:24] LABS: Blood Urea Nitrogen 31 mg/dL (7-17); Calcium 7.9 mg/dL (8.4-10.2); Hemolysis Index 0
[2021-11-26 05:25] LABS: INR 1.24 (0.87-1.13)
[2021-11-26 05:26] LABS: BUN/Creatinine Ratio 44; Partial Thromboplastin Time 29.2 Sec. (24.2-36.6)
[2021-11-26] MEDS: INSULIN LISPRO 100 UNIT/ML SUB-Q SCH ×3 (06:35→13:07)
[2021-11-26] MEDS: LEVOTHYROXINE 125 MCG TAB PO SCH (06:37)
[2021-11-26] MEDS: SENNOSIDES ORAL LIQD 8.8 MG/5 ML ORAL LIQD PO SCH ×2 (06:40→13:08)
[2021-11-26] MEDS: SUCRALFATE 1 GM/10 ML ORAL LIQD PO SCH (13:07)
[2021-11-26] MEDS: HYDROcodone/ACETAMINOPHEN 10-325MG TAB FEEDTUBE SCH (13:07)
[2021-11-26] MEDS: QUEtiapine 25 MG TAB PO SCH (13:08)
[2021-11-26] MEDS: LANSOPRAZOLE 30 MG SOLUTAB FEEDTUBE SCH (13:08)
[2021-11-26] MEDS: busPIRone 5 MG TAB PO SCH (13:08)
[2021-11-26] MEDS: METOPROLOL TARTRATE 25 MG TAB PO SCH (13:08)
--- NOTE | 2021-11-26 13:15 | Progress Note ---
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 - schedule Simethicane 160 mg tid X 3 days - tracheostomy this afternoon - no new issues otherwise, continue care as below; - continue daily SAT and SBT assessment as tolerated meanwhile - prn Levophed for target MAP > 65 mmHg - continue to wean supplemental oxygen for target O2 sat's > 90% acutely - VAP bundle addressed - continue lung protective strategies - continue bronchodilators with pulmonary hygiene per RT - wean per pulmonary driven protocols otherwise - avoid nephrotoxins, renally dose all medications - continue accuchecks with glycemic control per SSI (While critically ill target blood glucose of 140-180 mg/dL; avoid hypoglycemia) - sedation prn for target RASS 0 to -1 - antibiotics per ID recommendations - continue to avoid benzodiazepine's, reduce the possibility of delirium - prn analgesia per CPOT score - Maintenance of sleep-wake cycle, avoid delirium - continue enteral nutritional support at goal rate as tolerated - G.I. & VTE prophylaxis - PT/OT/ROM exercises - continue mobility protocols for pressure ulcer prophylaxis - Monitor hemodynamics closely - continue other care per attending / other consultants - discharge planning ongoing concurrently COVID SPECIFIC INTERVENTIONS - COVID-19 PCR negative .... Re-evaluate in am & prn CONDITION: CRITICAL PROGNOSIS: GUARDED CODE STATUS: FULL CODE The high probability of a clinically significant, sudden or life-threatening deterioration of the [respiratory, cardiovascular & neurologic] system(s) required my full and direct attention, intervention and personal management. The aggregate critical care time was [32] minutes without overlap. Time includes spent on; [x] Data Review and interpretation [x] Patient assessment and monitoring of vital signs [x] Documentation [x] Medication orders and management Subjective Date of service: 11/26/21 Principal diagnosis: Septic shock; AHRF; Anemia; Pneumonia; L. pleural effusion; HFrEF; Pulm HTN Interval history: Patient is seen today for: Septic shock; Acute hypoxemic respiratory failure; Anemia; Bilateral pneumonia; Left pleural effusion; HFrEF 30-35%; Pulm HTN RVSP 49 Seen and examined at bedside; 24hour events reviewed; nursing and respiratory care staff consulted; no adverse overnight events reported to me; resting in bed; remains on MVS; tentatively for trach today; + abdominal distension Objective Vital Signs - 12hr 11/26/21 11/26/21 11/26/21 01:30 02:00 02:30 Temperature Pulse Rate 68 70 74 Pulse Rate [ From Monitor] Pulse Rate [ Right Dorsalis Pedis] Respiratory 14 14 13 Rate Blood Pressure 95/43 101/47 100/49 O2 Sat by Pulse 100 100 100 Oximetry 11/26/21 11/26/21 11/26/21 03:00 03:30 04:00 Temperature 97.8 F Pulse Rate 71 77 86 Pulse Rate [ 81 From Monitor] Pulse Rate [ 93 H Right Dorsalis Pedis] Respiratory 14 14 20 Rate Blood Pressure 95/42 106/46 108/54 O2 Sat by Pulse 100 100 98 Oximetry 11/26/21 11/26/21 11/26/21 04:21 04:30 05:00 Temperature Pulse Rate 84 80 81 Pulse Rate [ From Monitor] Pulse Rate [ Right Dorsalis Pedis] Respiratory 14 13 Rate Blood Pressure 108/54 115/49 107/47 O2 Sat by Pulse 99 99 100 Oximetry 11/26/21 11/26/21 11/26/21 05:30 06:00 06:30 Temperature Pulse Rate 90 82 77 Pulse Rate [ From Monitor] Pulse Rate [ Right Dorsalis Pedis] Respiratory 18 14 13 Rate Blood Pressure 101/56 122/47 97/45 O2 Sat by Pulse 99 96 98 Oximetry 11/26/21 11/26/21 11/26/21 07:00 07:30 08:00 Temperature 97.9 F Pulse Rate 81 80 75 Pulse Rate [ 81 From Monitor] Pulse Rate [ 80 Right Dorsalis Pedis] Respiratory 16 12 14 Rate Blood Pressure 97/45 110/47 102/44 O2 Sat by Pulse 100 100 100 Oximetry 11/26/21 11/26/21 11/26/21 08:30 08:56 09:00 Temperature Pulse Rate 79 77 76 Pulse Rate [ From Monitor] Pulse Rate [ Right Dorsalis Pedis] Respiratory 12 14 Rate Blood Pressure 113/48 97/45 111/47 O2 Sat by Pulse 100 98 100 Oximetry 11/26/21 11/26/21 11/26/21 09:30 10:00 10:30 Temperature Pulse Rate 75 75 79 Pulse Rate [ From Monitor] Pulse Rate [ Right Dorsalis Pedis] Respiratory 15 14 17 Rate Blood Pressure 96/42 100/41 100/41 O2 Sat by Pulse 100 100 99 Oximetry 11/26/21 11/26/21 11:00 12:00 Temperature Pulse Rate 74 84 Pulse Rate [ From Monitor] Pulse Rate [ Right Dorsalis Pedis] Respiratory 13 Rate Blood Pressure 113/50 135/75 O2 Sat by Pulse 99 100 Oximetry Constitutional: no acute distress, other (ETT to MVS, frail elderly woman with mildly increased respiratory effort at rest) Eyes: non-icteric ENT: oropharynx moist, oropharyngeal exudate pre (clear frothy), other (ETT 23 cm ELIZABETH) Neck: supple, no lymphadenopathy, no JVD Effort: mildly labored Ascultation: Bilateral: diminished breath sounds, rhonchi (bases) Percussion: Bilateral: not dull Cardiovascular: regular rate and rhythm, other (S1,S2) Gastrointestinal: normoactive bowel sounds, soft, non-tender, non-distended (protuberant) Integumentary: normal Extremities: no cyanosis, pink and warm, pulses normal, edema (upper etremities) Neurologic: non-focal exam (grossly), pupils equal and round, CN II-XII normal, other (sedated) Psychiatric: mood appropriate, affect normal CBC and BMP: 11/27/21 07:40 11/27/21 07:40 ABG, PT/INR, D-dimer: ABG ABG pH 7.449 pH Units (7.350-7.450) 11/21/21 16:00 ABG pCO2 32.1 mm Hg 11/21/21 16:00 ABG pO2 114.2 mm Hg (80.0-90.0) H 11/21/21 16:00 ABG O2 Saturation 98.3 % (95.0-99.0) 11/21/21 16:00 PT/INR, D-dimer PT 16.9 Sec. (12.2-14.9) H 11/26/21 05:00 INR 1.24 (0.87-1.13) H 11/26/21 05:00 D-Dimer 2655.00 ng/mlDDU (0-234) H 11/11/21 04:28 Abnormal lab findings: Abnormal Labs 11/03/21 11/03/21 11/03/21 22:32 22:32 22:32 WBC 29.3 H RBC 2.93 L Hgb 6.1 L Hct 21.9 L MCV 75 L MCH 21 L MCHC 28 L RDW 19.7 H Plt Count Seg Neuts % (Manual) 97.0 H Lymphocytes % (Manual) 3.0 L Seg Neutrophils # Man 28.4 H Lymphocytes # (Manual) 0.9 L Monocytes # (Manual) PT 18.6 H INR 1.40 H D-Dimer ABG pH ABG pO2 ABG HCO3 ABG O2 Saturation ABG Base Excess ABG Hemoglobin Oxyhemoglobin Sodium Potassium Chloride Carbon Dioxide 20 L BUN 33 H Glucose 119 H POC Glucose Lactic Acid Calcium 8.3 L Phosphorus Magnesium AST ALT Alkaline Phosphatase Lactate Dehydrogenase Troponin T 0.035 H C-Reactive Protein NT-Pro-B Natriuret Pep Total Protein Albumin LDL Cholesterol Direct 34 L Vitamin B12 Crossmatch 11/03/21 11/03/21 11/03/21 22:32 22:32 23:57 WBC RBC Hgb Hct MCV MCH MCHC RDW Plt Count Seg Neuts % (Manual) Lymphocytes % (Manual) Seg Neutrophils # Man Lymphocytes # (Manual) Monocytes # (Manual) PT INR D-Dimer ABG pH ABG pO2 ABG HCO3 ABG O2 Saturation ABG Base Excess ABG Hemoglobin Oxyhemoglobin Sodium Potassium Chloride Carbon Dioxide BUN Glucose POC Glucose Lactic Acid 3.70 H* Calcium Phosphorus Magnesium AST ALT Alkaline Phosphatase 139 H Lactate Dehydrogenase Troponin T C-Reactive Protein NT-Pro-B Natriuret Pep 7895 H Total Protein Albumin 3.5 L LDL Cholesterol Direct Vitamin B12 Crossmatch See Detail 11/04/21 11/04/21 11/05/21 00:59 13:58 00:51 WBC 27.9 H RBC 3.28 L Hgb 7.3 L Hct 25.5 L MCV 78 L MCH 22 L MCHC 29 L RDW 19.1 H Plt Count Seg Neuts % (Manual) 96.0 H Lymphocytes % (Manual) 2.0 L Seg Neutrophils # Man 26.8 H Lymphocytes # (Manual) 0.6 L Monocytes # (Manual) PT INR D-Dimer ABG pH ABG pO2 ABG HCO3 ABG O2 Saturation ABG Base Excess ABG Hemoglobin Oxyhemoglobin Sodium Potassium Chloride Carbon Dioxide BUN Glucose POC Glucose Lactic Acid Calcium Phosphorus Magnesium AST ALT Alkaline Phosphatase Lactate Dehydrogenase Troponin T 0.051 H D 0.032 H D C-Reactive Protein NT-Pro-B Natriuret Pep Total Protein Albumin LDL Cholesterol Direct Vitamin B12 Crossmatch 11/05/21 11/05/21 11/05/21 06:11 06:11 06:11 WBC 31.8 H RBC 3.57 L Hgb 8.0 L Hct 27.7 L MCV 78 L MCH 22 L MCHC 29 L RDW 19.2 H Plt Count Seg Neuts % (Manual) 91.0 H Lymphocytes % (Manual) 4.5 L Seg Neutrophils # Man 28.9 H Lymphocytes # (Manual) Monocytes # (Manual) 1.1 H PT INR D-Dimer 1494.53 H ABG pH ABG pO2 ABG HCO3 ABG O2 Saturation ABG Base Excess ABG Hemoglobin Oxyhemoglobin Sodium Potassium Chloride Carbon Dioxide 19 L BUN 42 H Glucose 115 H POC Glucose Lactic Acid Calcium Phosphorus Magnesium AST 43 H ALT Alkaline Phosphatase Lactate Dehydrogenase 187 H Troponin T C-Reactive Protein 22.20 H NT-Pro-B Natriuret Pep Total Protein 6.0 L Albumin 3.2 L LDL Cholesterol Direct Vitamin B12 Crossmatch 11/05/21 11/05/21 11/06/21 06:11 12:15 00:30 WBC RBC Hgb Hct MCV MCH MCHC RDW Plt Count Seg Neuts % (Manual) Lymphocytes % (Manual) Seg Neutrophils # Man Lymphocytes # (Manual) Monocytes # (Manual) PT INR D-Dimer ABG pH ABG pO2 ABG HCO3 ABG O2 Saturation ABG Base Excess ABG Hemoglobin Oxyhemoglobin Sodium Potassium Chloride Carbon Dioxide BUN Glucose POC Glucose 113 H 69 L Lactic Acid Calcium Phosphorus Magnesium AST ALT Alkaline Phosphatase Lactate Dehydrogenase Troponin T 0.033 H C-Reactive Protein NT-Pro-B Natriuret Pep Total Protein Albumin LDL Cholesterol Direct Vitamin B12 Crossmatch 11/06/21 11/06/21 11/06/21 05:50 15:50 15:50 WBC 25.5 H RBC 3.62 L Hgb 8.0 L Hct 27.5 L MCV 76 L MCH 22 L MCHC 29 L RDW 19.6 H Plt Count Seg Neuts % (Manual) 92.0 H Lymphocytes % (Manual) 5.0 L Seg Neutrophils # Man 23.5 H Lymphocytes # (Manual) Monocytes # (Manual) PT INR D-Dimer ABG pH 7.305 L ABG pO2 ABG HCO3 15.8 L ABG O2 Saturation ABG Base Excess -9.6 L ABG Hemoglobin 8.6 L Oxyhemoglobin 94.6 L Sodium Potassium Chloride 113.9 H Carbon Dioxide 17 L BUN 56 H Glucose 114 H POC Glucose Lactic Acid Calcium 7.9 L Phosphorus Magnesium AST 1410 H ALT 934 H Alkaline Phosphatase 142 H Lactate Dehydrogenase Troponin T C-Reactive Protein NT-Pro-B Natriuret Pep Total Protein 5.0 L Albumin 2.6 L LDL Cholesterol Direct Vitamin B12 Crossmatch 11/07/21 11/07/21 11/07/21 03:30 04:50 08:07 WBC RBC Hgb Hct MCV MCH MCHC RDW Plt Count Seg Neuts % (Manual) Lymphocytes % (Manual) Seg Neutrophils # Man Lymphocytes # (Manual) Monocytes # (Manual) PT INR D-Dimer ABG pH ABG pO2 296.9 H ABG HCO3 18.1 L ABG O2 Saturation 99.5 H ABG Base Excess -5.9 L ABG Hemoglobin 7.6 L Oxyhemoglobin Sodium Potassium Chloride Carbon Dioxide BUN Glucose POC Glucose 106 H 108 H Lactic Acid Calcium Phosphorus Magnesium AST ALT Alkaline Phosphatase Lactate Dehydrogenase Troponin T C-Reactive Protein NT-Pro-B Natriuret Pep Total Protein Albumin LDL Cholesterol Direct Vitamin B12 Crossmatch 11/08/21 11/08/21 11/08/21 03:10 18:05 23:43 WBC RBC Hgb Hct MCV MCH MCHC RDW Plt Count Seg Neuts % (Manual) Lymphocytes % (Manual) Seg Neutrophils # Man Lymphocytes # (Manual) Monocytes # (Manual) PT INR D-Dimer ABG pH ABG pO2 127.4 H ABG HCO3 ABG O2 Saturation ABG Base Excess -3.4 L ABG Hemoglobin 7.4 L Oxyhemoglobin Sodium Potassium Chloride Carbon Dioxide BUN Glucose POC Glucose 113 H 141 H Lactic Acid Calcium Phosphorus Magnesium AST ALT Alkaline Phosphatase Lactate Dehydrogenase Troponin T C-Reactive Protein NT-Pro-B Natriuret Pep Total Protein Albumin LDL Cholesterol Direct Vitamin B12 Crossmatch 11/08/21 11/08/21 11/09/21 Unknown Unknown 02:00 WBC 14.5 H RBC 3.35 L Hgb 7.5 L 8.1 L Hct 25.4 L 27.6 L MCV 76 L 76 L MCH 23 L 22 L MCHC RDW 19.9 H 19.9 H Plt Count Seg Neuts % (Manual) Lymphocytes % (Manual) Seg Neutrophils # Man Lymphocytes # (Manual) Monocytes # (Manual) PT INR D-Dimer ABG pH ABG pO2 ABG HCO3 ABG O2 Saturation ABG Base Excess ABG Hemoglobin Oxyhemoglobin Sodium 154 H D Potassium 3.3 L Chloride 120.7 H Carbon Dioxide 20 L BUN 38 H Glucose POC Glucose Lactic Acid Calcium 8.3 L Phosphorus Magnesium AST ALT Alkaline Phosphatase Lactate Dehydrogenase Troponin T C-Reactive Protein NT-Pro-B Natriuret Pep Total Protein Albumin LDL Cholesterol Direct Vitamin B12 Crossmatch 11/09/21 11/09/21 11/09/21 02:00 02:31 05:12 WBC RBC Hgb Hct MCV MCH MCHC RDW Plt Count Seg Neuts % (Manual) Lymphocytes % (Manual) Seg Neutrophils # Man Lymphocytes # (Manual) Monocytes # (Manual) PT INR D-Dimer ABG pH 7.479 H ABG pO2 121.3 H ABG HCO3 ABG O2 Saturation ABG Base Excess ABG Hemoglobin 7.3 L Oxyhemoglobin Sodium Potassium Chloride 112.5 H Carbon Dioxide BUN 33 H Glucose 161 H POC Glucose 135 H Lactic Acid Calcium Phosphorus Magnesium AST 251 H ALT 481 H Alkaline Phosphatase Lactate Dehydrogenase Troponin T C-Reactive Protein NT-Pro-B Natriuret Pep Total Protein 5.0 L Albumin 2.8 L LDL Cholesterol Direct Vitamin B12 Crossmatch 11/09/21 11/09/21 11/09/21 11:33 16:32 23:28 WBC RBC Hgb Hct MCV MCH MCHC RDW Plt Count Seg Neuts % (Manual) Lymphocytes % (Manual) Seg Neutrophils # Man Lymphocytes # (Manual) Monocytes # (Manual) PT INR D-Dimer ABG pH ABG pO2 ABG HCO3 ABG O2 Saturation ABG Base Excess ABG Hemoglobin Oxyhemoglobin Sodium Potassium Chloride Carbon Dioxide BUN Glucose POC Glucose 132 H 133 H 143 H Lactic Acid Calcium Phosphorus Magnesium AST ALT Alkaline Phosphatase Lactate Dehydrogenase Troponin T C-Reactive Protein NT-Pro-B Natriuret Pep Total Protein Albumin LDL Cholesterol Direct Vitamin B12 Crossmatch 11/10/21 11/10/21 11/10/21 04:00 04:00 05:35 WBC 16.0 H RBC 3.61 L Hgb 8.0 L Hct 27.1 L MCV 75 L MCH 22 L MCHC RDW 20.4 H Plt Count Seg Neuts % (Manual) Lymphocytes % (Manual) Seg Neutrophils # Man Lymphocytes # (Manual) Monocytes # (Manual) PT INR D-Dimer ABG pH ABG pO2 ABG HCO3 ABG O2 Saturation ABG Base Excess ABG Hemoglobin Oxyhemoglobin Sodium 149 H Potassium Chloride 114.1 H Carbon Dioxide BUN 31 H Glucose 148 H POC Glucose 132 H Lactic Acid Calcium 8.2 L Phosphorus Magnesium AST ALT Alkaline Phosphatase Lactate Dehydrogenase Troponin T C-Reactive Protein NT-Pro-B Natriuret Pep Total Protein Albumin LDL Cholesterol Direct Vitamin B12 Crossmatch 11/10/21 11/10/21 11/10/21 11:31 14:08 15:35 WBC RBC Hgb Hct MCV MCH MCHC RDW Plt Count Seg Neuts % (Manual) Lymphocytes % (Manual) Seg Neutrophils # Man Lymphocytes # (Manual) Monocytes # (Manual) PT INR D-Dimer ABG pH ABG pO2 126.6 H ABG HCO3 ABG O2 Saturation ABG Base Excess ABG Hemoglobin 7.4 L Oxyhemoglobin Sodium Potassium Chloride Carbon Dioxide BUN Glucose POC Glucose 147 H Lactic Acid Calcium Phosphorus Magnesium AST ALT Alkaline Phosphatase Lactate Dehydrogenase Troponin T C-Reactive Protein NT-Pro-B Natriuret Pep Total Protein Albumin LDL Cholesterol Direct Vitamin B12 1823 H Crossmatch 11/10/21 11/11/21 11/11/21 17:53 00:55 04:28 WBC RBC Hgb Hct MCV MCH MCHC RDW Plt Count Seg Neuts % (Manual) Lymphocytes % (Manual) Seg Neutrophils # Man Lymphocytes # (Manual) Monocytes # (Manual) PT INR D-Dimer ABG pH ABG pO2 ABG HCO3 ABG O2 Saturation ABG Base Excess ABG Hemoglobin Oxyhemoglobin Sodium 149 H Potassium Chloride 112.2 H Carbon Dioxide BUN 34 H Glucose 148 H POC Glucose 140 H 145 H Lactic Acid Calcium 7.9 L Phosphorus Magnesium AST 53 H ALT 203 H Alkaline Phosphatase Lactate Dehydrogenase Troponin T C-Reactive Protein NT-Pro-B Natriuret Pep Total Protein 4.9 L Albumin 2.6 L LDL Cholesterol Direct Vitamin B12 Crossmatch 11/11/21 11/11/21 11/11/21 04:28 04:28 05:28 WBC 20.9 H RBC 3.47 L Hgb 7.5 L Hct 26.0 L MCV 75 L MCH 22 L MCHC 29 L RDW 21.6 H Plt Count 132 L Seg Neuts % (Manual) Lymphocytes % (Manual) Seg Neutrophils # Man Lymphocytes # (Manual) Monocytes # (Manual) PT INR D-Dimer 2655.00 H ABG pH ABG pO2 ABG HCO3 ABG O2 Saturation ABG Base Excess ABG Hemoglobin Oxyhemoglobin Sodium Potassium Chloride Carbon Dioxide BUN Glucose POC Glucose 154 H Lactic Acid Calcium Phosphorus Magnesium AST ALT Alkaline Phosphatase Lactate Dehydrogenase Troponin T C-Reactive Protein NT-Pro-B Natriuret Pep Total Protein Albumin LDL Cholesterol Direct Vitamin B12 Crossmatch 11/11/21 11/11/21 11/12/21 12:38 18:13 00:14 WBC RBC Hgb Hct MCV MCH MCHC RDW Plt Count Seg Neuts % (Manual) Lymphocytes % (Manual) Seg Neutrophils # Man Lymphocytes # (Manual) Monocytes # (Manual) PT INR D-Dimer ABG pH ABG pO2 ABG HCO3 ABG O2 Saturation ABG Base Excess ABG Hemoglobin Oxyhemoglobin Sodium Potassium Chloride Carbon Dioxide BUN Glucose POC Glucose 137 H 108 H 137 H Lactic Acid Calcium Phosphorus Magnesium AST ALT Alkaline Phosphatase Lactate Dehydrogenase Troponin T C-Reactive Protein NT-Pro-B Natriuret Pep Total Protein Albumin LDL Cholesterol Direct Vitamin B12 Crossmatch 11/12/21 11/12/21 11/12/21 05:40 06:24 11:12 WBC RBC Hgb Hct MCV MCH MCHC RDW Plt Count Seg Neuts % (Manual) Lymphocytes % (Manual) Seg Neutrophils # Man Lymphocytes # (Manual) Monocytes # (Manual) PT INR D-Dimer ABG pH 7.586 H ABG pO2 150.6 H ABG HCO3 27.2 H ABG O2 Saturation 99.1 H ABG Base Excess 5.2 H ABG Hemoglobin 7.5 L Oxyhemoglobin Sodium Potassium Chloride Carbon Dioxide BUN Glucose POC Glucose 132 H 140 H Lactic Acid Calcium Phosphorus Magnesium AST ALT Alkaline Phosphatase Lactate Dehydrogenase Troponin T C-Reactive Protein NT-Pro-B Natriuret Pep Total Protein Albumin LDL Cholesterol Direct Vitamin B12 Crossmatch 11/12/21 11/12/21 11/12/21 14:50 14:50 17:13 WBC 19.8 H RBC 3.27 L Hgb 7.1 L Hct 24.5 L MCV 75 L MCH 22 L MCHC 29 L RDW 22.3 H Plt Count Seg Neuts % (Manual) Lymphocytes % (Manual) Seg Neutrophils # Man Lymphocytes # (Manual) Monocytes # (Manual) PT INR D-Dimer ABG pH ABG pO2 ABG HCO3 ABG O2 Saturation ABG Base Excess ABG Hemoglobin Oxyhemoglobin Sodium 150 H Potassium 3.3 L Chloride 112.0 H Carbon Dioxide BUN 40 H Glucose 151 H POC Glucose 121 H Lactic Acid Calcium 7.4 L Phosphorus 1.70 L Magnesium 1.40 L AST ALT Alkaline Phosphatase Lactate Dehydrogenase Troponin T C-Reactive Protein NT-Pro-B Natriuret Pep Total Protein Albumin LDL Cholesterol Direct Vitamin B12 Crossmatch 11/12/21 11/13/21 11/13/21 23:19 05:34 06:30 WBC RBC Hgb Hct MCV MCH MCHC RDW Plt Count Seg Neuts % (Manual) Lymphocytes % (Manual) Seg Neutrophils # Man Lymphocytes # (Manual) Monocytes # (Manual) PT INR D-Dimer ABG pH ABG pO2 ABG HCO3 ABG O2 Saturation ABG Base Excess ABG Hemoglobin Oxyhemoglobin Sodium 149 H Potassium Chloride 60.0 L Carbon Dioxide BUN 40 H Glucose 146 H POC Glucose 113 H 132 H Lactic Acid Calcium 7.3 L Phosphorus Magnesium 2.40 H AST ALT 72 H Alkaline Phosphatase Lactate Dehydrogenase Troponin T C-Reactive Protein NT-Pro-B Natriuret Pep Total Protein 5.2 L Albumin 2.2 L LDL Cholesterol Direct Vitamin B12 Crossmatch 11/13/21 11/13/21 11/13/21 06:30 08:30 11:19 WBC 21.2 H RBC 3.12 L Hgb 6.8 L Hct 23.2 L MCV 74 L MCH 22 L MCHC 29 L RDW 22.2 H Plt Count 135 L Seg Neuts % (Manual) Lymphocytes % (Manual) Seg Neutrophils # Man Lymphocytes # (Manual) Monocytes # (Manual) PT INR D-Dimer ABG pH ABG pO2 ABG HCO3 ABG O2 Saturation ABG Base Excess ABG Hemoglobin Oxyhemoglobin Sodium Potassium Chloride Carbon Dioxide BUN Glucose POC Glucose 136 H Lactic Acid Calcium Phosphorus Magnesium AST ALT Alkaline Phosphatase Lactate Dehydrogenase Troponin T C-Reactive Protein NT-Pro-B Natriuret Pep Total Protein Albumin LDL Cholesterol Direct Vitamin B12 Crossmatch See Detail 11/13/21 11/14/21 11/14/21 18:21 00:01 04:46 WBC 20.0 H RBC 3.41 L Hgb 7.9 L Hct 26.8 L MCV MCH 23 L MCHC 29 L RDW 24.0 H Plt Count Seg Neuts % (Manual) Lymphocytes % (Manual) Seg Neutrophils # Man Lymphocytes # (Manual) Monocytes # (Manual) PT INR D-Dimer ABG pH ABG pO2 ABG HCO3 ABG O2 Saturation ABG Base Excess ABG Hemoglobin Oxyhemoglobin Sodium Potassium Chloride Carbon Dioxide BUN Glucose POC Glucose 149 H 141 H Lactic Acid Calcium Phosphorus Magnesium AST ALT Alkaline Phosphatase Lactate Dehydrogenase Troponin T C-Reactive Protein NT-Pro-B Natriuret Pep Total Protein Albumin LDL Cholesterol Direct Vitamin B12 Crossmatch 11/14/21 11/14/21 11/14/21 04:46 05:10 11:10 WBC RBC Hgb Hct MCV MCH MCHC RDW Plt Count Seg Neuts % (Manual) Lymphocytes % (Manual) Seg Neutrophils # Man Lymphocytes # (Manual) Monocytes # (Manual) PT INR D-Dimer ABG pH ABG pO2 ABG HCO3 ABG O2 Saturation ABG Base Excess ABG Hemoglobin Oxyhemoglobin Sodium 148 H Potassium Chloride 113.1 H Carbon Dioxide BUN 43 H Glucose 140 H POC Glucose 132 H 133 H Lactic Acid Calcium 7.5 L Phosphorus Magnesium AST ALT Alkaline Phosphatase Lactate Dehydrogenase Troponin T C-Reactive Protein NT-Pro-B Natriuret Pep Total Protein Albumin LDL Cholesterol Direct Vitamin B12 Crossmatch 11/14/21 11/14/21 11/14/21 16:14 17:48 23:23 WBC RBC Hgb Hct MCV MCH MCHC RDW Plt Count Seg Neuts % (Manual) Lymphocytes % (Manual) Seg Neutrophils # Man Lymphocytes # (Manual) Monocytes # (Manual) PT INR D-Dimer ABG pH ABG pO2 ABG HCO3 28.0 H ABG O2 Saturation ABG Base Excess 3.1 H ABG Hemoglobin 5.8 L Oxyhemoglobin 94.8 L Sodium Potassium Chloride Carbon Dioxide BUN Glucose POC Glucose 130 H 136 H Lactic Acid Calcium Phosphorus Magnesium AST ALT Alkaline Phosphatase Lactate Dehydrogenase Troponin T C-Reactive Protein NT-Pro-B Natriuret Pep Total Protein Albumin LDL Cholesterol Direct Vitamin B12 Crossmatch 11/15/21 11/15/21 11/15/21 05:20 05:50 05:50 WBC 19.9 H RBC 3.50 L Hgb 8.2 L Hct 27.9 L MCV MCH 23 L MCHC 29 L RDW 24.9 H Plt Count Seg Neuts % (Manual) Lymphocytes % (Manual) Seg Neutrophils # Man Lymphocytes # (Manual) Monocytes # (Manual) PT INR D-Dimer ABG pH ABG pO2 ABG HCO3 ABG O2 Saturation ABG Base Excess ABG Hemoglobin Oxyhemoglobin Sodium 149 H Potassium Chloride 112.0 H Carbon Dioxide BUN 48 H Glucose 152 H POC Glucose 137 H Lactic Acid Calcium 7.9 L Phosphorus Magnesium AST ALT Alkaline Phosphatase Lactate Dehydrogenase Troponin T C-Reactive Protein NT-Pro-B Natriuret Pep Total Protein Albumin LDL Cholesterol Direct Vitamin B12 Crossmatch 11/15/21 11/15/21 11/15/21 12:12 17:07 23:24 WBC RBC Hgb Hct MCV MCH MCHC RDW Plt Count Seg Neuts % (Manual) Lymphocytes % (Manual) Seg Neutrophils # Man Lymphocytes # (Manual) Monocytes # (Manual) PT INR D-Dimer ABG pH ABG pO2 ABG HCO3 ABG O2 Saturation ABG Base Excess ABG Hemoglobin Oxyhemoglobin Sodium Potassium Chloride Carbon Dioxide BUN Glucose POC Glucose 114 H 135 H 123 H Lactic Acid Calcium Phosphorus Magnesium AST ALT Alkaline Phosphatase Lactate Dehydrogenase Troponin T C-Reactive Protein NT-Pro-B Natriuret Pep Total Protein Albumin LDL Cholesterol Direct Vitamin B12 Crossmatch 11/16/21 11/16/21 11/16/21 05:21 10:00 10:00 WBC 21.7 H RBC 2.57 L Hgb 6.0 L Hct 20.2 L D MCV MCH 24 L MCHC RDW 26.3 H Plt Count Seg Neuts % (Manual) Lymphocytes % (Manual) Seg Neutrophils # Man Lymphocytes # (Manual) Monocytes # (Manual) PT INR D-Dimer ABG pH ABG pO2 ABG HCO3 ABG O2 Saturation ABG Base Excess ABG Hemoglobin Oxyhemoglobin Sodium 153 H Potassium Chloride 114.9 H Carbon Dioxide BUN 74 H Glucose 155 H POC Glucose 127 H Lactic Acid Calcium 8.1 L Phosphorus Magnesium AST ALT Alkaline Phosphatase Lactate Dehydrogenase Troponin T C-Reactive Protein NT-Pro-B Natriuret Pep Total Protein Albumin LDL Cholesterol Direct Vitamin B12 Crossmatch 11/16/21 11/16/21 11/16/21 11:34 14:00 15:25 WBC 17.2 H RBC 2.08 L Hgb 4.7 L* Hct 16.2 L* MCV 78 L MCH 23 L MCHC 29 L RDW 26.0 H Plt Count Seg Neuts % (Manual) 87.0 H Lymphocytes % (Manual) 8.0 L Seg Neutrophils # Man 15.0 H Lymphocytes # (Manual) Monocytes # (Manual) 0.9 H PT INR D-Dimer ABG pH ABG pO2 ABG HCO3 ABG O2 Saturation ABG Base Excess ABG Hemoglobin Oxyhemoglobin Sodium Potassium Chloride Carbon Dioxide BUN Glucose POC Glucose 131 H Lactic Acid Calcium Phosphorus Magnesium AST ALT Alkaline Phosphatase Lactate Dehydrogenase Troponin T C-Reactive Protein NT-Pro-B Natriuret Pep Total Protein Albumin LDL Cholesterol Direct Vitamin B12 Crossmatch See Detail 11/16/21 11/16/21 11/16/21 15:25 17:21 22:43 WBC RBC Hgb 8.6 L D Hct 27.7 L D MCV MCH MCHC RDW Plt Count Seg Neuts % (Manual) Lymphocytes % (Manual) Seg Neutrophils # Man Lymphocytes # (Manual) Monocytes # (Manual) PT INR D-Dimer ABG pH ABG pO2 ABG HCO3 ABG O2 Saturation ABG Base Excess ABG Hemoglobin Oxyhemoglobin Sodium 148 H Potassium Chloride 113.2 H Carbon Dioxide BUN 84 H Glucose 164 H POC Glucose 124 H Lactic Acid Calcium 7.6 L Phosphorus Magnesium AST ALT Alkaline Phosphatase Lactate Dehydrogenase Troponin T C-Reactive Protein NT-Pro-B Natriuret Pep Total Protein Albumin LDL Cholesterol Direct Vitamin B12 Crossmatch 11/16/21 11/17/21 11/17/21 23:07 05:33 05:56 WBC 25.1 H RBC 3.47 L Hgb 8.7 L Hct 28.5 L MCV MCH 25 L MCHC RDW 22.3 H Plt Count Seg Neuts % (Manual) Lymphocytes % (Manual) Seg Neutrophils # Man Lymphocytes # (Manual) Monocytes # (Manual) PT INR D-Dimer ABG pH ABG pO2 ABG HCO3 ABG O2 Saturation ABG Base Excess ABG Hemoglobin Oxyhemoglobin Sodium Potassium Chloride Carbon Dioxide BUN Glucose POC Glucose 128 H 133 H Lactic Acid Calcium Phosphorus Magnesium AST ALT Alkaline Phosphatase Lactate Dehydrogenase Troponin T C-Reactive Protein NT-Pro-B Natriuret Pep Total Protein Albumin LDL Cholesterol Direct Vitamin B12 Crossmatch 11/17/21 11/17/21 11/17/21 05:56 11:00 11:55 WBC RBC Hgb 8.3 L Hct 26.9 L MCV MCH MCHC RDW Plt Count Seg Neuts % (Manual) Lymphocytes % (Manual) Seg Neutrophils # Man Lymphocytes # (Manual) Monocytes # (Manual) PT INR D-Dimer ABG pH ABG pO2 ABG HCO3 ABG O2 Saturation ABG Base Excess ABG Hemoglobin Oxyhemoglobin Sodium 151 H Potassium Chloride 113.6 H Carbon Dioxide BUN 85 H Glucose 132 H POC Glucose 121 H Lactic Acid Calcium 7.8 L Phosphorus Magnesium AST ALT Alkaline Phosphatase Lactate Dehydrogenase Troponin T C-Reactive Protein NT-Pro-B Natriuret Pep Total Protein 5.1 L Albumin 2.2 L LDL Cholesterol Direct Vitamin B12 Crossmatch 11/17/21 11/17/21 11/18/21 18:04 18:55 00:26 WBC RBC Hgb 7.5 L 7.1 L Hct 24.8 L 23.6 L MCV MCH MCHC RDW Plt Count Seg Neuts % (Manual) Lymphocytes % (Manual) Seg Neutrophils # Man Lymphocytes # (Manual) Monocytes # (Manual) PT INR D-Dimer ABG pH ABG pO2 ABG HCO3 ABG O2 Saturation ABG Base Excess ABG Hemoglobin Oxyhemoglobin Sodium Potassium Chloride Carbon Dioxide BUN Glucose POC Glucose 144 H Lactic Acid Calcium Phosphorus Magnesium AST ALT Alkaline Phosphatase Lactate Dehydrogenase Troponin T C-Reactive Protein NT-Pro-B Natriuret Pep Total Protein Albumin LDL Cholesterol Direct Vitamin B12 Crossmatch 11/18/21 11/18/21 11/18/21 00:43 05:10 05:10 WBC 12.5 H RBC 2.39 L Hgb 6.1 L Hct 20.2 L MCV MCH 25 L MCHC RDW 23.2 H Plt Count Seg Neuts % (Manual) Lymphocytes % (Manual) Seg Neutrophils # Man Lymphocytes # (Manual) Monocytes # (Manual) PT INR D-Dimer ABG pH ABG pO2 ABG HCO3 ABG O2 Saturation ABG Base Excess ABG Hemoglobin Oxyhemoglobin Sodium 131 L D Potassium 2.9 L* D Chloride 97.8 L Carbon Dioxide BUN 58 H Glucose 665 H* POC Glucose 139 H Lactic Acid Calcium 7.0 L Phosphorus 2.20 L D Magnesium 1.50 L AST ALT Alkaline Phosphatase Lactate Dehydrogenase Troponin T C-Reactive Protein NT-Pro-B Natriuret Pep Total Protein Albumin LDL Cholesterol Direct Vitamin B12 Crossmatch 11/18/21 11/18/21 11/18/21 05:23 07:10 10:45 WBC RBC Hgb Hct MCV MCH MCHC RDW Plt Count Seg Neuts % (Manual) Lymphocytes % (Manual) Seg Neutrophils # Man Lymphocytes # (Manual) Monocytes # (Manual) PT INR D-Dimer ABG pH ABG pO2 ABG HCO3 ABG O2 Saturation ABG Base Excess ABG Hemoglobin Oxyhemoglobin Sodium 148 H D Potassium 3.1 L Chloride 111.9 H Carbon Dioxide BUN 63 H Glucose 141 H POC Glucose 124 H Lactic Acid Calcium 8.1 L D Phosphorus Magnesium AST ALT Alkaline Phosphatase Lactate Dehydrogenase Troponin T C-Reactive Protein NT-Pro-B Natriuret Pep Total Protein Albumin LDL Cholesterol Direct Vitamin B12 Crossmatch See Detail 11/18/21 11/19/21 11/19/21 11:57 00:19 04:55 WBC RBC 3.35 L Hgb 9.0 L 8.9 L Hct 28.3 L D 28.1 L MCV MCH 27 L MCHC RDW 20.3 H Plt Count Seg Neuts % (Manual) Lymphocytes % (Manual) Seg Neutrophils # Man Lymphocytes # (Manual) Monocytes # (Manual) PT INR D-Dimer ABG pH ABG pO2 ABG HCO3 ABG O2 Saturation ABG Base Excess ABG Hemoglobin Oxyhemoglobin Sodium Potassium Chloride Carbon Dioxide BUN Glucose POC Glucose 119 H Lactic Acid Calcium Phosphorus Magnesium AST ALT Alkaline Phosphatase Lactate Dehydrogenase Troponin T C-Reactive Protein NT-Pro-B Natriuret Pep Total Protein Albumin LDL Cholesterol Direct Vitamin B12 Crossmatch 11/19/21 11/19/21 11/20/21 04:55 05:42 00:55 WBC RBC Hgb 9.0 L Hct 28.6 L MCV MCH MCHC RDW Plt Count Seg Neuts % (Manual) Lymphocytes % (Manual) Seg Neutrophils # Man Lymphocytes # (Manual) Monocytes # (Manual) PT INR D-Dimer ABG pH ABG pO2 ABG HCO3 ABG O2 Saturation ABG Base Excess ABG Hemoglobin Oxyhemoglobin Sodium Potassium 3.5 L Chloride 108.6 H Carbon Dioxide BUN 47 H Glucose 207 H POC Glucose 63 L Lactic Acid Calcium 7.1 L Phosphorus Magnesium AST ALT Alkaline Phosphatase Lactate Dehydrogenase Troponin T C-Reactive Protein NT-Pro-B Natriuret Pep Total Protein Albumin LDL Cholesterol Direct Vitamin B12 Crossmatch 11/20/21 11/20/21 11/20/21 05:40 05:40 Unknown WBC RBC 3.40 L Hgb 9.1 L Hct 28.8 L MCV MCH 27 L MCHC RDW 20.7 H Plt Count Seg Neuts % (Manual) Lymphocytes % (Manual) Seg Neutrophils # Man Lymphocytes # (Manual) Monocytes # (Manual) PT INR D-Dimer ABG pH ABG pO2 ABG HCO3 ABG O2 Saturation ABG Base Excess -2.7 L ABG Hemoglobin 9.5 L Oxyhemoglobin 94.3 L Sodium Potassium 3.5 L Chloride 108.9 H Carbon Dioxide BUN 37 H Glucose 117 H POC Glucose Lactic Acid Calcium 7.5 L Phosphorus Magnesium AST ALT Alkaline Phosphatase Lactate Dehydrogenase Troponin T C-Reactive Protein NT-Pro-B Natriuret Pep Total Protein Albumin LDL Cholesterol Direct Vitamin B12 Crossmatch 11/21/21 11/21/21 11/21/21 04:30 04:30 16:00 WBC RBC 3.25 L Hgb 8.6 L Hct 28.1 L MCV MCH 26 L MCHC RDW 20.7 H Plt Count Seg Neuts % (Manual) Lymphocytes % (Manual) Seg Neutrophils # Man Lymphocytes # (Manual) Monocytes # (Manual) PT INR D-Dimer ABG pH ABG pO2 114.2 H ABG HCO3 ABG O2 Saturation ABG Base Excess ABG Hemoglobin 9.1 L Oxyhemoglobin Sodium 134 L Potassium Chloride Carbon Dioxide 20 L BUN 34 H Glucose POC Glucose Lactic Acid Calcium 7.1 L Phosphorus Magnesium AST ALT Alkaline Phosphatase Lactate Dehydrogenase Troponin T C-Reactive Protein NT-Pro-B Natriuret Pep Total Protein Albumin LDL Cholesterol Direct Vitamin B12 Crossmatch 11/22/21 11/22/21 11/22/21 07:07 07:07 23:54 WBC RBC 3.30 L Hgb 9.0 L Hct 28.5 L MCV MCH 27 L MCHC RDW 21.0 H Plt Count Seg Neuts % (Manual) Lymphocytes % (Manual) Seg Neutrophils # Man Lymphocytes # (Manual) Monocytes # (Manual) PT INR D-Dimer ABG pH ABG pO2 ABG HCO3 ABG O2 Saturation ABG Base Excess ABG Hemoglobin Oxyhemoglobin Sodium Potassium Chloride Carbon Dioxide BUN 32 H Glucose 106 H POC Glucose 110 H Lactic Acid Calcium 7.5 L Phosphorus Magnesium AST ALT Alkaline Phosphatase Lactate Dehydrogenase Troponin T C-Reactive Protein NT-Pro-B Natriuret Pep Total Protein Albumin LDL Cholesterol Direct Vitamin B12 Crossmatch 11/23/21 11/23/21 11/23/21 04:38 04:38 06:01 WBC RBC 3.23 L Hgb 8.8 L Hct 28.0 L MCV MCH 27 L MCHC RDW 21.3 H Plt Count Seg Neuts % (Manual) Lymphocytes % (Manual) Seg Neutrophils # Man Lymphocytes # (Manual) Monocytes # (Manual) PT INR D-Dimer ABG pH ABG pO2 ABG HCO3 ABG O2 Saturation ABG Base Excess ABG Hemoglobin Oxyhemoglobin Sodium 136 L Potassium Chloride Carbon Dioxide 20 L BUN 32 H Glucose 109 H POC Glucose 115 H Lactic Acid Calcium 7.7 L Phosphorus Magnesium AST ALT Alkaline Phosphatase Lactate Dehydrogenase Troponin T C-Reactive Protein NT-Pro-B Natriuret Pep Total Protein Albumin LDL Cholesterol Direct Vitamin B12 Crossmatch 11/23/21 11/24/21 11/24/21 11:40 00:03 04:13 WBC RBC 3.18 L Hgb 8.5 L Hct 27.5 L MCV MCH 27 L MCHC RDW 21.6 H Plt Count Seg Neuts % (Manual) Lymphocytes % (Manual) Seg Neutrophils # Man Lymphocytes # (Manual) Monocytes # (Manual) PT INR D-Dimer ABG pH ABG pO2 ABG HCO3 ABG O2 Saturation ABG Base Excess ABG Hemoglobin Oxyhemoglobin Sodium Potassium Chloride Carbon Dioxide BUN Glucose POC Glucose 117 H 111 H Lactic Acid Calcium Phosphorus Magnesium AST ALT Alkaline Phosphatase Lactate Dehydrogenase Troponin T C-Reactive Protein NT-Pro-B Natriuret Pep Total Protein Albumin LDL Cholesterol Direct Vitamin B12 Crossmatch 11/24/21 11/24/21 11/24/21 04:13 05:30 11:10 WBC RBC Hgb Hct MCV MCH MCHC RDW Plt Count Seg Neuts % (Manual) Lymphocytes % (Manual) Seg Neutrophils # Man Lymphocytes # (Manual) Monocytes # (Manual) PT INR D-Dimer ABG pH ABG pO2 ABG HCO3 ABG O2 Saturation ABG Base Excess ABG Hemoglobin Oxyhemoglobin Sodium Potassium Chloride Carbon Dioxide BUN 31 H Glucose 101 H POC Glucose 115 H 107 H Lactic Acid Calcium 7.7 L Phosphorus Magnesium AST ALT Alkaline Phosphatase Lactate Dehydrogenase Troponin T C-Reactive Protein NT-Pro-B Natriuret Pep Total Protein Albumin LDL Cholesterol Direct Vitamin B12 Crossmatch 11/24/21 11/24/21 11/25/21 16:34 17:57 05:12 WBC RBC 3.11 L Hgb 8.2 L Hct 26.6 L MCV MCH 26 L MCHC RDW 21.3 H Plt Count Seg Neuts % (Manual) Lymphocytes % (Manual) Seg Neutrophils # Man Lymphocytes # (Manual) Monocytes # (Manual) PT INR D-Dimer ABG pH ABG pO2 ABG HCO3 ABG O2 Saturation ABG Base Excess ABG Hemoglobin Oxyhemoglobin Sodium Potassium Chloride Carbon Dioxide BUN Glucose POC Glucose 115 H 110 H Lactic Acid Calcium Phosphorus Magnesium AST ALT Alkaline Phosphatase Lactate Dehydrogenase Troponin T C-Reactive Protein NT-Pro-B Natriuret Pep Total Protein Albumin LDL Cholesterol Direct Vitamin B12 Crossmatch 11/25/21 11/25/21 11/26/21 05:12 11:20 05:00 WBC RBC 3.30 L Hgb 8.8 L Hct 28.2 L MCV MCH 27 L MCHC RDW 20.7 H Plt Count Seg Neuts % (Manual) Lymphocytes % (Manual) Seg Neutrophils # Man Lymphocytes # (Manual) Monocytes # (Manual) PT INR D-Dimer ABG pH ABG pO2 ABG HCO3 ABG O2 Saturation ABG Base Excess ABG Hemoglobin Oxyhemoglobin Sodium Potassium Chloride Carbon Dioxide BUN 32 H Glucose 118 H POC Glucose 118 H Lactic Acid Calcium 8.2 L Phosphorus Magnesium AST ALT Alkaline Phosphatase Lactate Dehydrogenase Troponin T C-Reactive Protein NT-Pro-B Natriuret Pep Total Protein Albumin LDL Cholesterol Direct Vitamin B12 Crossmatch 11/26/21 11/26/21 11/26/21 05:00 05:00 05:44 WBC RBC Hgb Hct MCV MCH MCHC RDW Plt Count Seg Neuts % (Manual) Lymphocytes % (Manual) Seg Neutrophils # Man Lymphocytes # (Manual) Monocytes # (Manual) PT 16.9 H INR 1.24 H D-Dimer ABG pH ABG pO2 ABG HCO3 ABG O2 Saturation ABG Base Excess ABG Hemoglobin Oxyhemoglobin Sodium Potassium Chloride Carbon Dioxide BUN 31 H Glucose 104 H POC Glucose 110 H Lactic Acid Calcium 7.9 L Phosphorus Magnesium AST ALT Alkaline Phosphatase Lactate Dehydrogenase Troponin T C-Reactive Protein NT-Pro-B Natriuret Pep Total Protein Albumin LDL Cholesterol Direct Vitamin B12 Crossmatch Chest x-ray: pending Allied health notes reviewed: nursing
[2021-11-26] MEDS: fentaNYL 100 MCG/2 ML INJ IV PRN ×2 (14:39→19:56)
[2021-11-26] MEDS ORDERED: ROCURONIUM 50 MG/5 ML INJ IV ONE (15:22)
[2021-11-26] MEDS ORDERED: MIDAZOLAM 2 MG/2 ML INJ ONE (15:22)
[2021-11-26] MEDS ORDERED: LACTATED RINGERS 1,000 ML ONE (15:59)
[2021-11-26] MEDS ORDERED: GLYCOPYRROLATE 0.4 MG/2 ML INJ ONE (16:15)
[2021-11-26] MEDS ORDERED: NEOSTIGMINE 10MG/10 ML INJ MDV ONE (16:15)
--- NOTE | 2021-11-26 16:47 | Operative Report ---
Operative Report Operative Report: Date of surgery: 11/26/2022 Preoperative diagnosis: Vent dependence Postoperative diagnosis: Same as above Procedure: Percutaneous tracheostomy Surgeon: Swati Mane DO Anesthesia: Geta, local Findings: Good placement of tracheostomy as visualized by fiberoptic bronchoscopy EBL: 10 cc Specimen: None Complications: None Disposition: Stable to ICU HPI and indication: Patient is a 81 year-old female who is has had a protracted hospital course due to pneumonia, sepsis. Patient has been intubated and unable to be weaned from vent as she is failing PSV trials. Tracheostomy and PEG was requested by the copra processor. I discussed the indication for the procedures along with risks, benefits, alternatives with the patient's . All questions were answered and consent obtained. Procedure in detail: The patient was identified in the ICU and brought down to the operating room and positioned in supine position in the hospital bed. Consent was verified on the chart timeout was performed. The neck was prepped and draped in usual sterile fashion. Anesthesia was administered. Neck could not be hyperextended due to previous cervical fusion surgery. Dr. Valladares provider performed fiberoptic bronchoscopy throughout the entire procedure. The fiberoptic bronchoscope was inserted through the endotracheal tube via the adapter and the trachea examined. The trachea was unremarkable and the 7.5 ET tube was approximately 3 cm from pascale at 24 cm at the lip. 1% lidocaine was infiltrated into the skin and subcutaneous tissue approximately 2 fingerbreadths above the sternal notch. A 2 cm incision was made in a horizontal fashion using a 15 blade. Using a hemostat the soft tissues were bluntly dissected until the trachea was encountered. 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 The ET tube was then pulled back slowly to approximately 16 cm. Using the introducer needle, the trachea was entered under direct visualization. The wire was passed down the trachea towards the pascale. Introducer needle was then removed. The trachea was then serially dilated, after which a 8 [place] Shiley tracheostomy tube was inserted. The balloon was inflated, patient placed back on ventilator. There was end-tidal CO2 detected and tidal volumes assessed which were satisfactory. The bronchoscope was then placed through the tracheostomy and showed good positioning of the tracheostomy approximately 4 cm above the pascale and no bleeding. A drain sponge was placed between the skin and tracheostomy. The tracheostomy was secured to the patient's neck using a tracheostomy strap. A post op chest x-ray is pending. The patient tolerated the procedure well. All sharps were disposed of appropriately. PEG tube was now performed see separate procedure note. The patient was then taken back to the ICU in stable condition. Patient's was updated.
--- NOTE | 2021-11-26 16:49 | Operative Report ---
Operative Report Operative Report: Date:11/26/2021 Surgeon:Isaiah Valladares MD Pre-op diagnosis: respiratory failure Post-op diagnosis: same as pre-op Procedure: fiberoptic bronchoscopy for percutaneous tracheostomy placement Anesthesia:GETA Indication: Patient is a 81 year old female. Patient intubated and sedated therefore unable to provided detail history. The patient has been unable to be weaned from the ventilator and therefore tracheostomy with assistance of fiberoptic bronchoscopy is indicated along with PEG tube placement. All risks were discussed with the family, and consent obtained. Procedure in detail: The patient was identified in the hospital bed in the ICU and brought down to the OR. After anesthesia was induced, the fiberoptic bronchoscope was passed through the endotracheal tube using an adapter. The trachea and pascale were visualized, there was a normal appearance of the mucosa and no debris or fluid was seen. At this point, Dr. Mane who performed the tracheostomy portion of the procedure (please see separate operative note), asked for the endotracheal tube to be withdrawn slowly. The upper trachea was visualized and appeared normal. At this point, Dr. Mane placed the tracheostomy tube under direct visualization by fiberoptic bronchoscopy. Please see separate operative note for more details on Tracheostomy placement. Once the tracheostomy tube was placed, the bronchoscope was withdrawn from the endotracheal tube and placed through the tracheostomy tube. The tracheostomy tube appeared to be in good position approximately 4 cm above the pascale. The bronchoscope was then withdrawn. The procedure was terminated and the patient was returned to ICU in stable condition. Complication: none immediate
--- NOTE | 2021-11-26 16:50 | Operative Report ---
Operative Report Operative Report: Date: 11/26/2021 Surgeon: Isaiah Valladares MD Co-Surgeon: Aarti Mane DO Pre-op Dx: respiratory failure Post-op Dx: same as pre-op Anesthesia: GETA Indiction: Pt is a 81 year old female who is an able to weaned from ventilator and also requiring machine stoppage frequency checker tube feeds. She is here today for PEG tube placem ent. Family signed informed consent. Details of procedure: A mouth guard was placed through which a flexible endoscope was passed through the mouth and into the esophagus. The NG tube was visualized along the way. The endoscope was advanced through the esophagus and into the stomach. The stomach was unremarkable. The stomach was insufflated and transillumination performed. An area of transillumination was visualized in the left upper quadrant and marked. Dr. Mane performed the beside tube placement. The skin was then prepped and draped in usual sterile fashion. Local anesthetic was infiltrated to the skin at the intended incision site. A small incision was made in the skin using an 11 blade. An introducer needle/breakaway sheath was inserted directly through this incision into the stomach under direct endoscopic visualization. The needle was removed. The wire was passed and grasped with a snare by the patient services assistant and the wire pulled along with the endoscope through the mouth. The PEG tube was assembled onto the wire and pulled back through the mouth and down into the stomach. The outer bumper was at 2 cm at the skin. The PEG tube was cut to size and assembled in the usual fashion. A drain sponge was applied between the skin and the PEG tube and the tube secured with tape. I then reinserted the endoscope into the mouth and down into the stomach. The PEG tube inner bumper was seen to lay flush against the gastric mucosa without tension. There is no bleeding. The pylorus was entered and the first portion of the duodenum was unremarkable. The scope was then withdrawn back into the stomach and retroflexed. The entirety of the stomach was unremarkable. The NG tube was withdrawn. The stomach was then desufflated and the endoscope withdrawn. EBL: minimal Complications: none immediate
--- NOTE | 2021-11-26 17:13 | Progress Note ---
<MAYCOLJASBIR Maria TeresaMarissa - Last Filed: 11/26/21 17:13> Assessment and Plan Assessment and plan: This is a 81-year-old female with known history of diabetes mellitus, hypertension, PPM, and arthritis admitted for sepsis and acute hypoxia respiratory failure 2/2 bilateral pneumonia requiring intubation and ventilatory support Assessment and Plan Neuro : Acute encephalopathy -Neurology consulted, appreciate recommendations -CT brain showed no acute events -EEG interpreted as abnormal record due to diffuse slowing and therefore5 height noted throughout the recording, suggestive of encephalopathic process and/or drug effect, possibilities of postictal state cannot be totally excluded. Clinical correlation is in order -MRI brain not obtained-> patient has metal in her body -Repeat CT head with no acute findings -Reorientation as needed -Ammonia 42, B12 1823, TSH 1.5 -BuSpar, fentanyl patch, Seroquel, Baker Cardio: Heart failure with reduced EF, h/o chronic heart block s/p PPM, HTN/CAD s/p PCI (2004) -s/p vasopressor support with levophed -map goal >65 -11/04 echocardiogram shows EF 30 to 35% -Cardiology consulted, appreciate recommendations -Continue beta-charleen and statin therapy -Not on aspirin due to allergy -Blood pressure monitoring per protocol Resp: Acute hypoxic respiratory failure secondary to bilateral pneumonia, bilate ral pleural effusion. Right pneumothorax (resolved) -COVID-19 PCR negative -Intubated on 11/06 with 6.00 ETT at 18 at the lip and changed over bougie on 11/11-7.50 ETT at 20 at the lip -A.m. vent settings: Assist-control rate 14, tidal volume 400, PEEP 6, FiO2 30 % -See RT notes for titration -Failed PSV again -Surgery consult for trach -Received trach/PEG on 11/26 -S/p bedside bronchoscopy on 11/11 complicated by pneumothorax -S/p chest tube placement for right pneumothorax and dislodgment by patient on 11/15 -ABG/CXR per CCM -VAP bundle -Right chest wall ultrasound showed pleural effusion s/p chest tube -SPO2 monitoring -Mucomyst every 8 -Albuterol every 8 GI: S/p GI bleed, duodenal ulcer,transaminitis -GI consulted, appreciate recommendations -Nutrition consult for tube feeding -BR: Senokot, MiraLAX -Surgery consult for PEG -Scheduled for tomorrow -H2 charleen -Carafate -24-hour -75 ml -BM 11/23 -Gastric occult positive : Urinary retention -Gamble catheter -Strict intake and output -Trend BMP ID: Septic shock, POA, bilateral pneumonia, bacteremia -Infectious disease consulted, appreciate recommendations -COVID-19 PCR negative -Presented with fevers, leukocytosis and hypotension -11/04 blood cultures positive with a group B strep bacteremia however repeat blood cultures on the with no growth to date -Echo showed no evidence of vegetation -ABX therapy: Ceftriaxone (), vancomycin (11/05, ), clindamycin ), cefepime , ) -Monitor WBC and fever curve -Recultured on 11/11 with NGTD -Bedside bronchoscopy for mucous plug on CXR 11/11 Heme: Acute DVT in the right external iliac vein, common femoral vein, superior aspect of femoral vein, Acute microcytic anemia -Evidenced on bilateral upper lower extremity ultrasound -S/p 5 unit PRBC -Trend CBC -Transfuse for hemoglobin less than 7 -S/p IVC filter Endo: h/o DM and hypothyroidism -Continue home Synthroid -SSI -Accu-Cheks every 6 -Avoid hypoglycemia The high probability of a clinically significant, sudden or life threatening deterioration of the [multi] system(s) required my full and direct attention, intervention and personal management. The aggregate critical care time was [60] minutes. This time is in addition to time spent performing reported procedures but includes the following: [x] Data Review and interpretation [x] Patient assessment and monitoring of vital signs [x] Documentation [x] Medication orders and management Disposition Plan: icu Total Time Spent with Patient (Minutes): 60 History Interval history: This is an 82-year-old female with DM, HTN , PPM and arthritis who presented to the emergency department on 11/04 for shortness of breath ongoing for the past 3 days, cough and according to family a fever of 102.2. Upon arrival of EMS patient was found to be tachypneic and hypoxic with SPO2 of 76% on room air which later improved to 88% on nonrebreather. Work-up in the emergency departm ent included a CXR which showed bilateral interstitial pulmonary edema with bilateral pleural effusions and bibasilar opacities, leukocytosis and anemia with a hemoglobin of 6.1. Patient was admitted to the hospitalist service with acute anemia, acute hypoxic respiratory failure, bilateral pneumonia and COVID- 19 PUI with consults to pulmonology, infectious disease and later cardiology. Patient was eventually intubated in the emergency department on 11/06. Hospital Course to date: 11/04/2021: Empiric therapy with iv levaquin/vancomycin. COVID PCR pending. Will consult ID. PCCM consulted, will follow recs. Hypotensive this AM, ordered bolus and fluids at 150 cc/hr. May require pressor support if bp does not improve. 11/05/2021: GBS on bcx +, currently on rocephin IV. Currently on bipap due to respiratory distress overnight. Worsening BL opacities on CXR. May be volume overload vs pneumonia. Unfortunately bp too low for lasix at this point. WIll continue levophed and bipap. Once able to tolerate, may do trial of albumin/lasix. Call attempt made to alok Healy, no response. Will try again tomorrow to update. 11/06/2021: Decompensated overnight requiring intubation. CXR shows worsening interstitial infiltrates. Currenlty on dopamine, levophed, vasopressin. PICC line ordered. Advised RN to place gamble for I/O monitoring. Would benefit from diuresis but very volume overloaded. Prognosis guarded 11/08: Off sedation this am, remains unresponsive only grimace to pain. Hold all sedatives agents for now, patient is off pressors this am. Hypernatremia from today's lab- D5W X1bag, and low K repleted, repeat lab in the am. Severe constipation also noted from KUB, BR added. 11/09: Sudden SPO2 drop in the 60s this am. Patient was manually bagged and deep suctioned. Patient is currently stable on the vent, repeat CXR with no significant change. D/w CCM Mucomyst and brochodilator added. Patient mentation is unchanged, continue to hold off on sedative agents. Neurology consulted. 11/10: Acute DVT noted on bilateral lower extremity Doppler ultrasound therefore she was started on Lovenox treatment dose. Failed SBT. Hypernatremia and hyperchloremia noted, free water flush adjusted. 11/11: Patient noted to be febrile with increasing of the cytosis, UA/BC sent and CXR ordered. ID escalated antibiotics to cefepime. CXR demonstrated mucous plug, bedside bronchoscopy was performed and O ETT was changed over bougie from 6 cm to 7.5. Patient was noted to have a pneumothorax postprocedure and chest tube was placed. Family updated by [facility]. Free water flush increased and will add Jaswant supplementation. 11/12: Patient not noted to follow commands, hypernatremia worsen/persist, increasing free water flush, potassium and magnesium and phosphorus repleted. Hemoglobin noted to be 7.1/24.5 from 7.03/12 yesterday. We will continue to trend and monitor. Vent changes per [facility]. Repeat CXR showed no residual pneumothorax. Consider waterseal tomorrow. Given persistent leukocytosis antibiotics escalated to cefepime per ID. 11/13: Remains on cefepime and vancomycin, vent changes per [facility]. Anemia noted and given 1 unit PRBC. And beta-charleen held in setting of Levophed drip infusing. Remains on fentanyl drip. 11/14: Patient put on CPAP trial by [facility], will continue chest tube until after extubation. Will rest on assist control. CT brain was cancelled by 1st grade teacher and reordered. 11/15: Patient removed chest tube overnight. Will obtain cxr. remains on low dose levo. CTH completed with no acute findings. RT to place on CPAP. 11/16: Hypernatremia/hyperchloremia noted on the increase of day water flushes. Anemia noted and ordered PRBC. asked RT to place on cpap but not done yet 11/17: Patient remains on the vent, awake and following commands. H&H stable s/p 2units PRBCs. GI on consult, no intervention at this time. Will continue protonix gtt and serial H&H Q6hrs. Keep patient NPO for now, D5w added for hypernatremia and NPO status. Plan for IVC filter placement today by Vascular. 11/18: Patient is s/p IVC filter. H&H continue to trend down, hbg 6.1 this am, 1 unit of PRBCs ordered. Plan for possible EGD today by GI. Keep patient NPO, continue PPI drip and serial H&H Q6hrs. Electrolytes repleted, repeat lab in the am 11/19: S/p EGD- larger duodenal ulcer noted, see operative note. GI recommendations noted also noted. H&H stable this am. Keep patient on protonix gtt for now. Will keep patient NPO, continue IVF and serial H&H for now. Electrolytes repleted, repeat labs in the am 2/3: Very agitated and restless this am, fentanyl gtt resumed. Patient remains on protonix gtt, H&H remains stable. Will switch protonix gtt to IV BID, continue carafate and okay to resume meds at this time. Will F/u with GI to see if TF can be resumed. Gamble was reinserted overnight for retention. Electrolytes repleted, repeat in the am. Plan for possible PST today for possible extubation per [facility]. 11/21: Patient is now on seroquel and patient's home buspar resumed. Patient more calm this morning, fentanyl gtt is off. H&H remains stable and patient is tolerating TF. Patient had a runs of Vtach/PVCs this am, BB added per Cardio. Continue daily PS and wean trial for possible extubation. 11/22: Back on fentanyl gtt overnight , RASS o to -1, following commands. Patient failed PST this am due to increased work of breathing and low SPO2, ABG pending. Patient is also with worsen pitting edema, lasix is still on hold. Will discuss with cardio and CCM to possibly resume lasix. 11/23: MARIA DEL CARMEN overnight. Patient failed PST again this am. Per CCM plan for possible trach and PEG, hold off on IV lasix for now. General surgery consulted and family is aware of possible Trach and PEG. 11/24: Trach/PEG pending this week, continue SBT/SAT as tolerated. No acute events reported overnight. 11/25: Patient was n.p.o. overnight and will remain n.p.o. tonight for trach/PEG tomorrow morning. She failed to support trial again. KUB obtained due to distended belly. 11/26: Patient scheduled for tracheostomy and PEG tube placement today, has been n.p.o. since midnight. No acute events reported overnight. [facility] ordered simethicone scheduled. Hospitalist Physical - Constitutional Vitals: Temp Pulse Resp BP Pulse Ox 97.9 F 88 14 116/55 100 11/26/21 08:00 11/26/21 17:00 11/26/21 17:00 11/26/21 17:00 11/26/21 17:00 General appearance: Present: no acute distress, other (On the vent) - EENT Eyes: Present: PERRL, EOM intact ENT: hearing intact, clear oral mucosa, dentition normal - Neck Neck: Present: normal ROM - Respiratory Respiratory effort: normal Respiratory: bilateral: diminished - Cardiovascular Rhythm: regular Heart Sounds: Present: S1 & S2. Absent: systolic murmur, diastolic murmur - Extremities Extremities: no ischemia, pulses intact, pulses symmetrical, No edema, normal temperature, normal color Peripheral Pulses: within normal limits - Abdominal General gastrointestinal: soft, non-distended, normal bowel sounds - Integumentary Integumentary: Present: warm, dry - Psychiatric Psychiatric: cooperative - Neurologic Neurologic: CNII-XII intact, no focal deficits, moves all extremities - Allied Health Allied health notes reviewed: nursing, RT, social work HEART Score - HEART Score Troponin: Troponin T 0.033 ng/mL (0.00-0.029) H 11/05/21 06:11 Results - Labs CBC & Chem 7: 11/26/21 05:00 11/26/21 05:00 Labs: Laboratory Last Values WBC 6.8 K/mm3 (4.5-11.0) 11/26/21 05:00 RBC 3.30 M/mm3 (3.65-5.03) L 11/26/21 05:00 Hgb 8.8 gm/dl (10.1-14.3) L 11/26/21 05:00 Hct 28.2 % (30.3-42.9) L 11/26/21 05:00 MCV 86 fl (79-97) 11/26/21 05:00 MCH 27 pg (28-32) L 11/26/21 05:00 MCHC 31 % (30-34) 11/26/21 05:00 RDW 20.7 % (13.2-15.2) H 11/26/21 05:00 Plt Count 271 K/mm3 (140-440) 11/26/21 05:00 Add Manual Diff Complete 11/16/21 15:25 Total Counted 100 11/16/21 15:25 Seg Neutrophils % Slitter Helper 11/06/21 15:50 Seg Neuts % (Manual) 87.0 % (40.0-70.0) H 11/16/21 15:25 Band Neutrophils % 0 % 11/16/21 15:25 Lymphocytes % (Manual) 8.0 % (13.4-35.0) L 11/16/21 15:25 Reactive Lymphs % (Man) 0 % 11/16/21 15:25 Monocytes % (Manual) 5.0 % (0.0-7.3) 11/16/21 15:25 Eosinophils % (Manual) 0 % (0.0-4.3) 11/16/21 15:25 Basophils % (Manual) 0 % (0.0-1.8) 11/16/21 15:25 Metamyelocytes % 0 % 11/16/21 15:25 Myelocytes % 0 % 11/16/21 15:25 Promyelocytes % 0 % 11/16/21 15:25 Blast Cells % 0 % 11/16/21 15:25 Nucleated RBC % Not Reportable 11/16/21 15:25 Seg Neutrophils # Man 15.0 K/mm3 (1.8-7.7) H 11/16/21 15:25 Band Neutrophils # 0.0 K/mm3 11/16/21 15:25 Lymphocytes # (Manual) 1.4 K/mm3 (1.2-5.4) 11/16/21 15:25 Abs React Lymphs (Man) 0.0 K/mm3 11/16/21 15:25 Monocytes # (Manual) 0.9 K/mm3 (0.0-0.8) H 11/16/21 15:25 Eosinophils # (Manual) 0.0 K/mm3 (0.0-0.4) 11/16/21 15:25 Basophils # (Manual) 0.0 K/mm3 (0.0-0.1) 11/16/21 15:25 Metamyelocytes # 0.0 K/mm3 11/16/21 15:25 Myelocytes # 0.0 K/mm3 11/16/21 15:25 Promyelocytes # 0.0 K/mm3 11/16/21 15:25 Blast Cells # 0.0 K/mm3 11/16/21 15:25 WBC Morphology Not Reportable 11/16/21 15:25 Hypersegmented Neuts Not Reportable 11/16/21 15:25 Hyposegmented Neuts Not Reportable 11/16/21 15:25 Hypogranular Neuts Not Reportable 11/16/21 15:25 Smudge Cells Not Reportable 11/16/21 15:25 Toxic Granulation Not Reportable 11/16/21 15:25 Toxic Vacuolation Not Reportable 11/16/21 15:25 Dohle Bodies Not Reportable 11/16/21 15:25 Pelger-Huet Anomaly Not Reportable 11/16/21 15:25 Irina Rods Not Reportable 11/16/21 15:25 Platelet Estimate Consistent w auto 11/16/21 15:25 Clumped Platelets Rare 11/16/21 15:25 Plt Clumps, EDTA Not Reportable 11/16/21 15:25 Large Platelets Not Reportable 11/16/21 15:25 Giant Platelets Not Reportable 11/16/21 15:25 Platelet Satelliting Not Reportable 11/16/21 15:25 Plt Morphology Comment Not Reportable 11/16/21 15:25 RBC Morphology Not Reportable 11/16/21 15:25 Dimorphic RBCs Not Reportable 11/16/21 15:25 Polychromasia Not Reportable 11/16/21 15:25 Hypochromasia 2+ 11/16/21 15:25 Poikilocytosis Not Reportable 11/16/21 15:25 Anisocytosis 2+ 11/16/21 15:25 Microcytosis Not Reportable 11/16/21 15:25 Macrocytosis Not Reportable 11/16/21 15:25 Spherocytes Not Reportable 11/16/21 15:25 Pappenheimer Bodies Not Reportable 11/16/21 15:25 Sickle Cells Not Reportable 11/16/21 15:25 Target Cells 2+ 11/16/21 15:25 Tear Drop Cells Not Reportable 11/16/21 15:25 Ovalocytes Not Reportable 11/16/21 15:25 Helmet Cells Not Reportable 11/16/21 15:25 Odonnell-Butternut Bodies Not Reportable 11/16/21 15:25 Mcdavid Rings Not Reportable 11/16/21 15:25 Malcom Cells Not Reportable 11/16/21 15:25 Bite Cells Not Reportable 11/16/21 15:25 Crenated Cell Not Reportable 11/16/21 15:25 Elliptocytes Not Reportable 11/16/21 15:25 Acanthocytes (Spur) Not Reportable 11/16/21 15:25 Rouleaux Not Reportable 11/16/21 15:25 Hemoglobin C Crystals Not Reportable 11/16/21 15:25 Schistocytes Not Reportable 11/16/21 15:25 Malaria parasites Not Reportable 11/16/21 15:25 Godfrey Bodies Not Reportable 11/16/21 15:25 Hem Pathologist Commnt No 11/16/21 15:25 PT 16.9 Sec. (12.2-14.9) H 11/26/21 05:00 INR 1.24 (0.87-1.13) H 11/26/21 05:00 APTT 29.2 Sec. (24.2-36.6) 11/26/21 05:00 D-Dimer 2655.00 ng/mlDDU (0-234) H 11/11/21 04:28 ABG pH 7.449 pH Units (7.350-7.450) 11/21/21 16:00 ABG pCO2 32.1 mm Hg 11/21/21 16:00 ABG pO2 114.2 mm Hg (80.0-90.0) H 11/21/21 16:00 ABG HCO3 21.8 mmol/L (20.0-26.0) 11/21/21 16:00 ABG O2 Saturation 98.3 % (95.0-99.0) 11/21/21 16:00 ABG O2 Content 12.5 (0.0-44) 11/21/21 16:00 ABG Base Excess -1.7 mmol/L (-2.0-3.0) 11/21/21 16:00 ABG Hemoglobin 9.1 gm/dl (12.0-16.0) L 11/21/21 16:00 ABG Carboxyhemoglobin 1.9 % (0.0-5.0) 11/21/21 16:00 ABG Methemoglobin 0.5 % (0.0-1.5) 11/21/21 16:00 Oxyhemoglobin 96.0 % (95.0-99.0) 11/21/21 16:00 FiO2 30 % 11/21/21 16:00 Sodium 139 mmol/L (137-145) 11/26/21 05:00 Potassium 4.6 mmol/L (3.6-5.0) 11/26/21 05:00 Chloride 105.1 mmol/L (98-107) 11/26/21 05:00 Carbon Dioxide 25 mmol/L (22-30) 11/26/21 05:00 Anion Gap 14 mmol/L 11/26/21 05:00 BUN 31 mg/dL (7-17) H 11/26/21 05:00 Creatinine 0.7 mg/dL (0.6-1.2) 11/26/21 05:00 Estimated GFR > 60 ml/min 11/26/21 05:00 BUN/Creatinine Ratio 44 % 11/26/21 05:00 Glucose 104 mg/dL (65-100) H 11/26/21 05:00 POC Glucose 77 mg/dL (70-105) 11/26/21 16:59 Lactic Acid 3.70 mmol/L (0.7-2.0) H* 11/03/21 22:32 Calcium 7.9 mg/dL (8.4-10.2) L 11/26/21 05:00 Phosphorus 3.00 mg/dL (2.5-4.5) 11/26/21 05:00 Magnesium 1.70 mg/dL (1.7-2.3) 11/26/21 05:00 Ferritin 52.6 ng/mL (10.0-200.0) 11/05/21 06:11 Total Bilirubin 0.50 mg/dL (0.1-1.2) 11/17/21 05:56 Direct Bilirubin < 0.2 mg/dL (0-0.2) 11/11/21 04:28 Indirect Bilirubin 0.1 mg/dL 11/11/21 04:28 AST 36 units/L (5-40) 11/17/21 05:56 ALT 47 units/L (7-56) 11/17/21 05:56 Alkaline Phosphatase 107 units/L (35-129) 11/17/21 05:56 Ammonia 42.0 umol/L (25-60) 11/10/21 14:08 Lactate Dehydrogenase 187 units/L (91-180) H 11/05/21 06:11 Troponin T 0.033 ng/mL (0.00-0.029) H 11/05/21 06:11 C-Reactive Protein 22.20 mg/dL (0.00-1.30) H 11/05/21 06:11 NT-Pro-B Natriuret Pep 7895 pg/mL (0-900) H 11/03/21 22:32 Total Protein 5.1 g/dL (6.3-8.2) L 11/17/21 05:56 Albumin 2.2 g/dL (3.9-5) L 11/17/21 05:56 Albumin/Globulin Ratio 0.8 % 11/17/21 05:56 Triglycerides 66 mg/dL (2-149) 11/03/21 22:32 Cholesterol 80 mg/dL (50-199) 11/03/21 22:32 LDL Cholesterol Direct 34 mg/dL (50-130) L 11/03/21 22:32 HDL Cholesterol 42 mg/dL (40-59) 11/03/21 22:32 Cholesterol/HDL Ratio 1.90 % 11/03/21 22:32 Vitamin B12 1823 pg/mL (211-911) H 11/10/21 14:08 TSH 1.510 mlU/mL (0.270-4.200) 11/10/21 14:08 Urine Color Yellow (Yellow) 11/11/21 09:00 Urine Turbidity Slightly-cloudy (Clear) 11/11/21 09:00 Urine pH 5.0 (5.0-7.0) 11/11/21 09:00 Ur Specific [place] 1.009 (1.003-1.030) 11/11/21 09:00 Urine Protein <15 mg/dl mg/dL (Negative) 11/11/21 09:00 Urine Glucose (UA) Neg mg/dL (Negative) 11/11/21 09:00 Urine Ketones Neg mg/dL (Negative) 11/11/21 09:00 Urine Blood Mod (Negative) 11/11/21 09:00 Urine Nitrite Neg (Negative) 11/11/21 09:00 Urine Bilirubin Neg (Negative) 11/11/21 09:00 Urine Urobilinogen < 2.0 mg/dL (<2.0) 11/11/21 09:00 Ur Leukocyte Esterase Neg (Negative) 11/11/21 09:00 Urine WBC (Auto) < 1.0 /HPF (0.0-6.0) 11/11/21 09:00 Urine RBC (Auto) < 1.0 /HPF (0.0-6.0) 11/11/21 09:00 Coronavirus (PCR) Negative (Negative) 11/10/21 08:30 Blood Type O POSITIVE 11/18/21 10:45 Antibody Screen Negative 11/18/21 10:45 Crossmatch See Detail 11/18/21 10:45 Gamble/IV: Voiding Method Indwelling Catheter Active Medications - Current Medications Current Medications: Generic Name Dose Route Start Last Admin Trade Name Freq PRN Reason Stop Dose Admin Acetaminophen 650 mg 11/04/21 02:03 11/23/21 16:26 Acetaminophen 325 Mg Tab PO 650 mg Q6H PRN Administration Pain MILD(1-3)/Fever >100.5/RODRIGUEZ Hydrocodone Bitart/Acetaminophen 1 each 11/21/21 10:00 11/26/21 13:07 Hydrocodone/Acetaminophen 10-325mg Tab FEEDTUBE Not Given TID YOSSI Lipase/Protease/Amylase 1 each 11/08/21 11:09 Lipase 10,500/Protease 25,000/Amylase 43,750 (Units) Dr Cap FEEDTUBE PRN PRN For Clogged Feeding Tube Buspirone HCl 7.5 mg 11/17/21 22:00 11/26/21 13:08 Buspirone 5 Mg Tab PO Not Given BID YOSSI Dextrose 0 ml 11/10/21 10:52 11/21/21 16:27 Dextrose 10% *Hypoglycemia IV 50 ml PRN PRN Administration Hypoglycemia Fentanyl 1 applic 11/17/21 13:00 11/23/21 09:29 Fentanyl 25 Mcg/Hr Patch 72hr TD 1 applic Q3D YOSSI Administration Fentanyl 25 mcg 11/26/21 14:01 11/26/21 14:39 Fentanyl 100 Mcg/2 Ml Inj IV 11/28/21 14:00 25 mcg Q4H PRN Administration Pain , Severe (7-10) Hydrophilic Ointment 1 applic 11/06/21 04:02 Lip Therapy Vaseline TP Q2HR PRN Dry Lips Insulin Human Lispro 0 unit 11/06/21 12:00 11/26/21 13:07 Insulin Lispro 100 Unit/Ml SUB-Q Not Given Q6HR [facility] Protocol Lansoprazole 30 mg 11/24/21 22:00 11/26/21 13:08 Lansoprazole 30 Mg Solutab FEEDTUBE Not Given BID [facility] Levothyroxine Sodium 125 mcg 11/05/21 07:00 11/26/21 06:37 Levothyroxine 125 Mcg Tab PO Not Given DAILY@0600 YOSSI Magnesium Hydroxide 30 ml 11/04/21 02:03 Magnesium Hydroxide (Mom) Oral Liqd Udc PO Q4H PRN Constipation Metoprolol Tartrate 12.5 mg 11/21/21 10:00 11/26/21 13:08 Metoprolol Tartrate 25 Mg Tab PO Not Given BID [facility] Multi-Ingred Cream/Lotion/Oil/Oint 1 applic 11/06/21 04:02 Mineral Oil/Petrolatum, White Ophth Oint 3.5 Gm OU Q4HR PRN Dry Eye(s) Ondansetron HCl 4 mg 11/04/21 02:03 11/05/21 15:48 Ondansetron 4 Mg/2 Ml Inj IV 4 mg Q8H PRN Administration Nausea And Vomiting Pravastatin Sodium 20 mg 11/18/21 22:00 11/25/21 21:25 Pravastatin 20 Mg Tab PO 20 mg QHS YOSSI Administration Quetiapine Fumarate 50 mg 11/20/21 22:00 11/26/21 13:08 Quetiapine 25 Mg Tab PO Not Given BID [facility] Senna 17.6 mg 11/08/21 22:00 11/26/21 13:08 Sennosides Oral Liqd 8.8 Mg/5 Ml Oral Liqd PO Not Given Q12HR [facility] Simethicone 160 mg 11/26/21 20:00 Simethicone 80 Mg Chew Tab PO 11/29/21 14:01 TID YOSSI Simple Syrup 15 ml 11/08/21 11:09 Simple Syrup 15 Ml FEEDTUBE PRN PRN Hypoglycemia Simple Syrup 30 ml 11/08/21 11:09 Simple Syrup 15 Ml FEEDTUBE PRN PRN Hypoglycemia Sodium Bicarbonate 325 mg 11/08/21 11:09 Sodium Bicarbonate 325 Mg Tab FEEDTUBE PRN PRN For Clogged Feeding Tube Sodium Chloride 10 ml 11/04/21 10:00 11/26/21 13:09 Sodium Chloride 0.9% 10 Ml Flush Syringe IV Not Given BID [facility] Sodium Chloride 10 ml 11/04/21 02:03 Sodium Chloride 0.9% 10 Ml Flush Syringe IV PRN PRN LINE FLUSH Sodium Chloride 10 ml 11/10/21 09:57 11/17/21 20:47 Sodium Chloride 0.9% 50 Ml Ivpb IV 10 ml PRN PRN Administration FLUSH Sucralfate 1 gm 11/18/21 16:30 11/26/21 13:07 Sucralfate 1 Gm/10 Ml Oral Liqd PO Not Given ACHS YOSSI Nutrition/Malnutrition Assess - Dietary Evaluation Nutrition/Malnutrition Findings: Nutrition Notes Start: 11/04/21 17:16 Freq: Status: Active Protocol: Document 11/24/21 14:48 NHALL (Rec: 11/24/21 14:56 NHALL [email or web address]) Nutrition Notes Initial or Follow up Reassessment Current Diagnosis Diabetes,Hypertension,Heart Failure,Respiratory Failure Other Pertinent Diagnosis Bilat pneu, (R) pneumothorax, Septic shock Current Diet TF - Glucerna 1.2 at 42ml/hr Labs/Tests Reviewed Pertinent Medications Sucralfate Height 5 ft Weight 62.4 kg [place] Body Weight (kg) 45.45 BMI 26.9 Weight Status Appropriate Subjective/Other Information Observed TF infusing at goal rate. Pt remains on vent support. Trach/PEG placement pending. Percent of energy/protein needs met: 100% energy 81% pro Burn Absent Trauma Absent #1 Nutrition Diagnosis Inadequate oral intake Diagnosis Progress(for reassessment Continues documentation) Is patient on ventilator? Yes Is Patient Ambulatory and/or Out of Bed No REE-([facility]-confined to bed) 1207.824 Calculation Used for Recommendations [facility] Additional Notes Pro needs 1.2-2 g/k-125g/ day Fluid needs 1ml/kcal Nutrition Intervention Nutrition Support: Continue Glucerna 1.2 at 42ml/ hr with 75ml water flush q4h. Kcal 1,210 Protein (gm) 60 Carbohydrates (gm) 115 Fat (gm) 60 Fluid (mL) 811 Fiber (gm) 16 Goal #1 TF tolerance Goal #2 TF to meet at least 75% energy and pro needs Follow-Up By: 12/01/21 Additional Comments F/U: stable TF, trach/PEG placement, vent status, wt <FREDERICK DALTON - Last Filed: 11/27/21 13:22> Assessment and Plan Assessment and plan: I saw and evaluated the patient. Discussed with the nurse practitioner and agree with their findings and plan as documented in this note. Hospitalist Physical - Constitutional Vitals: Temp Pulse Resp BP Pulse Ox 99.6 F 85 15 110/51 98 11/27/21 12:00 11/27/21 12:46 11/27/21 12:46 11/27/21 12:46 11/27/21 12:46 HEART Score - HEART Score Troponin: Troponin T 0.033 ng/mL (0.00-0.029) H 11/05/21 06:11 Results - Labs CBC & Chem 7: 11/27/21 07:40 11/27/21 07:40 Labs: Laboratory Last Values WBC 7.9 K/mm3 (4.5-11.0) 11/27/21 07:40 RBC 3.18 M/mm3 (3.65-5.03) L 11/27/21 07:40 Hgb 8.5 gm/dl (10.1-14.3) L 11/27/21 07:40 Hct 27.0 % (30.3-42.9) L 11/27/21 07:40 MCV 85 fl (79-97) 11/27/21 07:40 MCH 27 pg (28-32) L 11/27/21 07:40 MCHC 32 % (30-34) 11/27/21 07:40 RDW 21.2 % (13.2-15.2) H 11/27/21 07:40 Plt Count 276 K/mm3 (140-440) 11/27/21 07:40 Add Manual Diff Complete 11/16/21 15:25 Total Counted 100 11/16/21 15:25 Seg Neutrophils % Slitter Helper 11/06/21 15:50 Seg Neuts % (Manual) 87.0 % (40.0-70.0) H 11/16/21 15:25 Band Neutrophils % 0 % 11/16/21 15:25 Lymphocytes % (Manual) 8.0 % (13.4-35.0) L 11/16/21 15:25 Reactive Lymphs % (Man) 0 % 11/16/21 15:25 Monocytes % (Manual) 5.0 % (0.0-7.3) 11/16/21 15:25 Eosinophils % (Manual) 0 % (0.0-4.3) 11/16/21 15:25 Basophils % (Manual) 0 % (0.0-1.8) 11/16/21 15:25 Metamyelocytes % 0 % 11/16/21 15:25 Myelocytes % 0 % 11/16/21 15:25 Promyelocytes % 0 % 11/16/21 15:25 Blast Cells % 0 % 11/16/21 15:25 Nucleated RBC % Not Reportable 11/16/21 15:25 Seg Neutrophils # Man 15.0 K/mm3 (1.8-7.7) H 11/16/21 15:25 Band Neutrophils # 0.0 K/mm3 11/16/21 15:25 Lymphocytes # (Manual) 1.4 K/mm3 (1.2-5.4) 11/16/21 15:25 Abs React Lymphs (Man) 0.0 K/mm3 11/16/21 15:25 Monocytes # (Manual) 0.9 K/mm3 (0.0-0.8) H 11/16/21 15:25 Eosinophils # (Manual) 0.0 K/mm3 (0.0-0.4) 11/16/21 15:25 Basophils # (Manual) 0.0 K/mm3 (0.0-0.1) 11/16/21 15:25 Metamyelocytes # 0.0 K/mm3 11/16/21 15:25 Myelocytes # 0.0 K/mm3 11/16/21 15:25 Promyelocytes # 0.0 K/mm3 11/16/21 15:25 Blast Cells # 0.0 K/mm3 11/16/21 15:25 WBC Morphology Not Reportable 11/16/21 15:25 Hypersegmented Neuts Not Reportable 11/16/21 15:25 Hyposegmented Neuts Not Reportable 11/16/21 15:25 Hypogranular Neuts Not Reportable 11/16/21 15:25 Smudge Cells Not Reportable 11/16/21 15:25 Toxic Granulation Not Reportable 11/16/21 15:25 Toxic Vacuolation Not Reportable 11/16/21 15:25 Dohle Bodies Not Reportable 11/16/21 15:25 Pelger-Huet Anomaly Not Reportable 11/16/21 15:25 Irina Rods Not Reportable 11/16/21 15:25 Platelet Estimate Consistent w auto 11/16/21 15:25 Clumped Platelets Rare 11/16/21 15:25 Plt Clumps, EDTA Not Reportable 11/16/21 15:25 Large Platelets Not Reportable 11/16/21 15:25 Giant Platelets Not Reportable 11/16/21 15:25 Platelet Satelliting Not Reportable 11/16/21 15:25 Plt Morphology Comment Not Reportable 11/16/21 15:25 RBC Morphology Not Reportable 11/16/21 15:25 Dimorphic RBCs Not Reportable 11/16/21 15:25 Polychromasia Not Reportable 11/16/21 15:25 Hypochromasia 2+ 11/16/21 15:25 Poikilocytosis Not Reportable 11/16/21 15:25 Anisocytosis 2+ 11/16/21 15:25 Microcytosis Not Reportable 11/16/21 15:25 Macrocytosis Not Reportable 11/16/21 15:25 Spherocytes Not Reportable 11/16/21 15:25 Pappenheimer Bodies Not Reportable 11/16/21 15:25 Sickle Cells Not Reportable 11/16/21 15:25 Target Cells 2+ 11/16/21 15:25 Tear Drop Cells Not Reportable 11/16/21 15:25 Ovalocytes Not Reportable 11/16/21 15:25 Helmet Cells Not Reportable 11/16/21 15:25 Odonnell-Butternut Bodies Not Reportable 11/16/21 15:25 Mcdavid Rings Not Reportable 11/16/21 15:25 [place] Cells Not Reportable 11/16/21 15:25 Bite Cells Not Reportable 11/16/21 15:25 Crenated Cell Not Reportable 11/16/21 15:25 Elliptocytes Not Reportable 11/16/21 15:25 Acanthocytes (Spur) Not Reportable 11/16/21 15:25 Rouleaux Not Reportable 11/16/21 15:25 Hemoglobin C Crystals Not Reportable 11/16/21 15:25 Schistocytes Not Reportable 11/16/21 15:25 Malaria parasites Not Reportable 11/16/21 15:25 Godfrey Bodies Not Reportable 11/16/21 15:25 Hem Pathologist Commnt No 11/16/21 15:25 PT 16.9 Sec. (12.2-14.9) H 11/26/21 05:00 INR 1.24 (0.87-1.13) H 11/26/21 05:00 APTT 29.2 Sec. (24.2-36.6) 11/26/21 05:00 D-Dimer 2655.00 ng/mlDDU (0-234) H 11/11/21 04:28 ABG pH 7.449 pH Units (7.350-7.450) 11/21/21 16:00 ABG pCO2 32.1 mm Hg 11/21/21 16:00 ABG pO2 114.2 mm Hg (80.0-90.0) H 11/21/21 16:00 ABG HCO3 21.8 mmol/L (20.0-26.0) 11/21/21 16:00 ABG O2 Saturation 98.3 % (95.0-99.0) 11/21/21 16:00 ABG O2 Content 12.5 (0.0-44) 11/21/21 16:00 ABG Base Excess -1.7 mmol/L (-2.0-3.0) 11/21/21 16:00 ABG Hemoglobin 9.1 gm/dl (12.0-16.0) L 11/21/21 16:00 ABG Carboxyhemoglobin 1.9 % (0.0-5.0) 11/21/21 16:00 ABG Methemoglobin 0.5 % (0.0-1.5) 11/21/21 16:00 Oxyhemoglobin 96.0 % (95.0-99.0) 11/21/21 16:00 FiO2 30 % 11/21/21 16:00 Sodium 139 mmol/L (137-145) 11/27/21 07:40 Potassium 4.4 mmol/L (3.6-5.0) 11/27/21 07:40 Chloride 105.3 mmol/L (98-107) 11/27/21 07:40 Carbon Dioxide 25 mmol/L (22-30) 11/27/21 07:40 Anion Gap 13 mmol/L 11/27/21 07:40 BUN 27 mg/dL (7-17) H 11/27/21 07:40 Creatinine 0.8 mg/dL (0.6-1.2) 11/27/21 07:40 Estimated GFR > 60 ml/min 11/27/21 07:40 BUN/Creatinine Ratio 34 % 11/27/21 07:40 Glucose 112 mg/dL (65-100) H 11/27/21 07:40 POC Glucose 109 mg/dL (70-105) H 11/27/21 12:04 Lactic Acid 3.70 mmol/L (0.7-2.0) H* 11/03/21 22:32 Calcium 7.6 mg/dL (8.4-10.2) L 11/27/21 07:40 Phosphorus 3.00 mg/dL (2.5-4.5) 11/26/21 05:00 Magnesium 1.70 mg/dL (1.7-2.3) 11/26/21 05:00 Ferritin 52.6 ng/mL (10.0-200.0) 11/05/21 06:11 Total Bilirubin 0.50 mg/dL (0.1-1.2) 11/17/21 05:56 Direct Bilirubin < 0.2 mg/dL (0-0.2) 11/11/21 04:28 Indirect Bilirubin 0.1 mg/dL 11/11/21 04:28 AST 36 units/L (5-40) 11/17/21 05:56 ALT 47 units/L (7-56) 11/17/21 05:56 Alkaline Phosphatase 107 units/L (35-129) 11/17/21 05:56 Ammonia 42.0 umol/L (25-60) 11/10/21 14:08 Lactate Dehydrogenase 187 units/L (91-180) H 11/05/21 06:11 Troponin T 0.033 ng/mL (0.00-0.029) H 11/05/21 06:11 C-Reactive Protein 22.20 mg/dL (0.00-1.30) H 11/05/21 06:11 NT-Pro-B Natriuret Pep 7895 pg/mL (0-900) H 11/03/21 22:32 Total Protein 5.1 g/dL (6.3-8.2) L 11/17/21 05:56 Albumin 2.2 g/dL (3.9-5) L 11/17/21 05:56 Albumin/Globulin Ratio 0.8 % 11/17/21 05:56 Triglycerides 66 mg/dL (2-149) 11/03/21 22:32 Cholesterol 80 mg/dL (50-199) 11/03/21 22:32 LDL Cholesterol Direct 34 mg/dL (50-130) L 11/03/21 22:32 HDL Cholesterol 42 mg/dL (40-59) 11/03/21 22:32 Cholesterol/HDL Ratio 1.90 % 11/03/21 22:32 Vitamin B12 1823 pg/mL (211-911) H 11/10/21 14:08 TSH 1.510 mlU/mL (0.270-4.200) 11/10/21 14:08 Urine Color Yellow (Yellow) 11/11/21 09:00 Urine Turbidity Slightly-cloudy (Clear) 11/11/21 09:00 Urine pH 5.0 (5.0-7.0) 11/11/21 09:00 Ur Specific [place] 1.009 (1.003-1.030) 11/11/21 09:00 Urine Protein <15 mg/dl mg/dL (Negative) 11/11/21 09:00 Urine Glucose (UA) Neg mg/dL (Negative) 11/11/21 09:00 Urine Ketones Neg mg/dL (Negative) 11/11/21 09:00 Urine Blood Mod (Negative) 11/11/21 09:00 Urine Nitrite Neg (Negative) 11/11/21 09:00 Urine Bilirubin Neg (Negative) 11/11/21 09:00 Urine Urobilinogen < 2.0 mg/dL (<2.0) 11/11/21 09:00 Ur Leukocyte Esterase Neg (Negative) 11/11/21 09:00 Urine WBC (Auto) < 1.0 /HPF (0.0-6.0) 11/11/21 09:00 Urine RBC (Auto) < 1.0 /HPF (0.0-6.0) 11/11/21 09:00 Coronavirus (PCR) Negative (Negative) 11/10/21 08:30 Blood Type O POSITIVE 11/18/21 10:45 Antibody Screen Negative 11/18/21 10:45 Crossmatch See Detail 11/18/21 10:45 Gamble/IV: Voiding Method Indwelling Catheter Active Medications - Current Medications Current Medications: Generic Name Dose Route Start Last Admin Trade Name Freq PRN Reason Stop Dose Admin Acetaminophen 650 mg 11/04/21 02:03 11/23/21 16:26 Acetaminophen 325 Mg Tab PO 650 mg Q6H PRN Administration Pain MILD(1-3)/Fever >100.5/RODRIGUEZ Hydrocodone Bitart/Acetaminophen 1 each 11/21/21 10:00 11/27/21 09:11 Hydrocodone/Acetaminophen 10-325mg Tab FEEDTUBE 1 each TID YOSSI Administration Lipase/Protease/Amylase 1 each 11/08/21 11:09 Lipase 10,500/Protease 25,000/Amylase 43,750 (Units) Dr Lema FEEDTUBE PRN PRN For Clogged Feeding Tube Buspirone HCl 7.5 mg 11/17/21 22:00 11/27/21 09:12 Buspirone 5 Mg Tab PO 7.5 mg BID YOSSI Administration Dextrose 0 ml 11/10/21 10:52 11/21/21 16:27 Dextrose 10% *Hypoglycemia IV 50 ml PRN PRN Administration Hypoglycemia Fentanyl 1 applic 11/17/21 13:00 11/23/21 09:29 Fentanyl 25 Mcg/Hr Patch 72hr TD 1 applic Q3D YOSSI Administration Fentanyl 25 mcg 11/26/21 14:01 11/26/21 19:56 Fentanyl 100 Mcg/2 Ml Inj IV 11/28/21 14:00 25 mcg Q4H PRN Administration Pain , Severe (7-10) Furosemide 20 mg 11/27/21 14:00 Furosemide 20 Mg/2 Ml Inj IV 11/29/21 10:01 QDAY YOSSI Hydrophilic Ointment 1 applic 11/06/21 04:02 Lip Therapy Vaseline TP Q2HR PRN Dry Lips Insulin Human Lispro 0 unit 11/06/21 12:00 11/27/21 06:16 Insulin Lispro 100 Unit/Ml SUB-Q Not Given Q6HR [facility] Protocol Lansoprazole 30 mg 11/24/21 22:00 11/27/21 09:12 Lansoprazole 30 Mg Solutab FEEDTUBE 30 mg BID YOSSI Administration Levothyroxine Sodium 125 mcg 11/05/21 07:00 11/27/21 06:03 Levothyroxine 125 Mcg Tab PO 125 mcg DAILY@0600 YOSSI Administration Magnesium Hydroxide 30 ml 11/04/21 02:03 Magnesium Hydroxide (Mom) Oral Liqd Udc PO Q4H PRN Constipation Metoprolol Tartrate 12.5 mg 11/21/21 10:00 11/27/21 09:12 Metoprolol Tartrate 25 Mg Tab PO 12.5 mg BID YOSSI Administration Multi-Ingred Cream/Lotion/Oil/Oint 1 applic 11/06/21 04:02 Mineral Oil/Petrolatum, White Ophth Oint 3.5 Gm OU Q4HR PRN Dry Eye(s) Ondansetron HCl 4 mg 11/04/21 02:03 11/05/21 15:48 Ondansetron 4 Mg/2 Ml Inj IV 4 mg Q8H PRN Administration Nausea And Vomiting Pravastatin Sodium 20 mg 11/18/21 22:00 11/27/21 00:16 Pravastatin 20 Mg Tab PO 20 mg QHS YOSSI Administration Quetiapine Fumarate 50 mg 11/20/21 22:00 11/27/21 09:11 Quetiapine 25 Mg Tab PO 50 mg BID YOSSI Administration Senna 17.6 mg 11/08/21 22:00 11/27/21 09:11 Sennosides Oral Liqd 8.8 Mg/5 Ml Oral Liqd PO 17.6 mg Q12HR YOSSI Administration Simethicone 160 mg 11/26/21 20:00 11/27/21 09:11 Simethicone 80 Mg Chew Tab PO 11/29/21 14:01 160 mg TID YOSSI Administration Simple Syrup 15 ml 11/08/21 11:09 Simple Syrup 15 Ml FEEDTUBE PRN PRN Hypoglycemia Simple Syrup 30 ml 11/08/21 11:09 Simple Syrup 15 Ml FEEDTUBE PRN PRN Hypoglycemia Sodium Bicarbonate 325 mg 11/08/21 11:09 Sodium Bicarbonate 325 Mg Tab FEEDTUBE PRN PRN For Clogged Feeding Tube Sodium Chloride 10 ml 11/04/21 10:00 11/27/21 09:13 Sodium Chloride 0.9% 10 Ml Flush Syringe IV 10 ml BID YOSSI Administration Sodium Chloride 10 ml 11/04/21 02:03 Sodium Chloride 0.9% 10 Ml Flush Syringe IV PRN PRN LINE FLUSH Sodium Chloride 10 ml 11/10/21 09:57 11/17/21 20:47 Sodium Chloride 0.9% 50 Ml Ivpb IV 10 ml PRN PRN Administration FLUSH Sucralfate 1 gm 11/18/21 16:30 11/27/21 09:12 Sucralfate 1 Gm/10 Ml Oral Liqd PO 1 gm ACHS YOSSI Administration Nutrition/Malnutrition Assess - Dietary Evaluation Nutrition/Malnutrition Findings: Nutrition Notes Start: 11/04/21 17:16 Freq: Status: Active Protocol: Document 11/24/21 14:48 YOVANI (Rec: 11/24/21 14:56 NHALL [id number]) Nutrition Notes Initial or Follow up Reassessment Current Diagnosis Diabetes,Hypertension,Heart Failure,Respiratory Failure Other Pertinent Diagnosis Bilat pneu, (R) pneumothorax, Septic shock Current Diet TF - Glucerna 1.2 at 42ml/hr Labs/Tests Reviewed Pertinent Medications Sucralfate Height 5 ft Weight 62.4 kg [place] Body Weight (kg) 45.45 BMI 26.9 Weight Status Appropriate Subjective/Other Information Observed TF infusing at goal rate. Pt remains on vent support. Trach/PEG placement pending. Percent of energy/protein needs met: 100% energy 81% pro Burn Absent Trauma Absent #1 Nutrition Diagnosis Inadequate oral intake Diagnosis Progress(for reassessment Continues documentation) Is patient on ventilator? Yes Is Patient Ambulatory and/or Out of Bed No REE-([facility]-confined to bed) 1207.824 Calculation Used for Recommendations [facility] Additional Notes Pro needs 1.2-2 g/k-125g/ day Fluid needs 1ml/kcal Nutrition Intervention Nutrition Support: Continue Glucerna 1.2 at 42ml/ hr with 75ml water flush q4h. Kcal 1,210 Protein (gm) 60 Carbohydrates (gm) 115 Fat (gm) 60 Fluid (mL) 811 Fiber (gm) 16 Goal #1 TF tolerance Goal #2 TF to meet at least 75% energy and pro needs Follow-Up By: 12/01/21 Additional Comments F/U: stable TF, trach/PEG placement, vent status, wt
--- NOTE | 2021-11-26 17:15 | XRay Report ---
CHEST 1 VIEW 11/26/2021 4:53 PM INDICATION / CLINICAL INFORMATION: tracheostomy. COMPARISON: 11/23/2021 FINDINGS: SUPPORT DEVICES: Stable, satisfactory device positioning. HEART / MEDIASTINUM: No significant abnormality. LUNGS / PLEURA: Diffuse opacities in bilateral lungs have worsened No pneumothorax. ADDITIONAL FINDINGS: No significant additional findings. IMPRESSION: 1. Interval worsening bilateral pulmonary opacities Signer Name: Eduard Hahn MD Signed: 11/26/2021 5:10 PM Workstation Name: [email or web address]
--- NOTE | 2021-11-26 17:40 | Post Anesthesia Evaluation ---
- Post Anesthesia Evaluation Patient Participated: No Airway Patent: Yes Stable Respiratory Function: Yes Nausea/Vomiting: No Temp > 96.8F: Yes Pain Manageable: Yes Adequeate Hydration: Yes Anesthesia Complications: No Block Receding Appropriately: Not Applicable Patient on Ventilator: Yes
[2021-11-27] MEDS: SIMETHICONE 80 MG CHEW TAB PO SCH ×4 (00:14→21:20)
[2021-11-27] MEDS: SUCRALFATE 1 GM/10 ML ORAL LIQD PO SCH ×6 (00:14→21:21)
[2021-11-27] MEDS: QUEtiapine 25 MG TAB PO SCH ×3 (00:15→21:21)
[2021-11-27] MEDS: HYDROcodone/ACETAMINOPHEN 10-325MG TAB FEEDTUBE SCH ×5 (00:15→21:22)
[2021-11-27] MEDS: LANSOPRAZOLE 30 MG SOLUTAB FEEDTUBE SCH ×3 (00:16→21:21)
[2021-11-27] MEDS: PRAVASTATIN 20 MG TAB PO SCH ×2 (00:16→21:21)
[2021-11-27] MEDS: busPIRone 5 MG TAB PO SCH ×3 (00:16→21:23)
[2021-11-27] MEDS: LEVOTHYROXINE 125 MCG TAB PO SCH (06:03)
[2021-11-27] MEDS: INSULIN LISPRO 100 UNIT/ML SUB-Q SCH ×4 (06:04→18:12)
[2021-11-27] MEDS: METOPROLOL TARTRATE 25 MG TAB PO SCH ×3 (06:14→21:21)
[2021-11-27] MEDS: SENNOSIDES ORAL LIQD 8.8 MG/5 ML ORAL LIQD PO SCH ×3 (06:15→21:21)
[2021-11-27 07:53] LABS: Hemoglobin 8.5 gm/dl (10.1-14.3); Mean Corpuscular HGB Conc 32 % (30-34); Mean Corpuscular Volume 85 fl (79-97); Platelet Count 276 K/mm3 (140-440); Red Blood Count 3.18 M/mm3 (3.65-5.03)
[2021-11-27 08:12] LABS: Red Cell Distribution Width 21.2 % (13.2-15.2)
[2021-11-27 08:15] LABS: BUN/Creatinine Ratio 34; Blood Urea Nitrogen 27 mg/dL (7-17); Calcium 7.6 mg/dL (8.4-10.2); Hemolysis Index 0
--- NOTE | 2021-11-27 11:52 | Progress Note ---
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 - Lasix 20 mg IV daily X 3 days Simethicone 160 mg tid X 3 days - tracheostomy this afternoon - no new issues otherwise, continue care as below; - continue daily SAT and SBT assessment as tolerated meanwhile - prn Levophed for target MAP > 65 mmHg - continue to wean supplemental oxygen for target O2 sat's > 90% acutely - VAP bundle addressed - continue lung protective strategies - continue bronchodilators with routine trach care and pulmonary hygiene per RT - wean per pulmonary driven protocols otherwise - avoid nephrotoxins, renally dose all medications - continue accuchecks with glycemic control per SSI (While critically ill target blood glucose of 140-180 mg/dL; avoid hypoglycemia) - sedation prn for target RASS 0 to -1 - antibiotics per ID recommendations - continue to avoid benzodiazepine's, reduce the possibility of delirium - prn analgesia per CPOT score - Maintenance of sleep-wake cycle, avoid delirium - continue enteral nutritional support at goal rate as tolerated - G.I. & VTE prophylaxis - PT/OT/ROM exercises - continue mobility protocols for pressure ulcer prophylaxis - Monitor hemodynamics closely - continue other care per attending / other consultants - discharge planning ongoing concurrently COVID SPECIFIC INTERVENTIONS - COVID-19 PCR negative .... Re-evaluate in am & prn CONDITION: CRITICAL PROGNOSIS: GUARDED CODE STATUS: FULL CODE The high probability of a clinically significant, sudden or life-threatening deterioration of the [respiratory, cardiovascular & neurologic] system(s) required my full and direct attention, intervention and personal management. The aggregate critical care time was [35] minutes without overlap. Time includes spent on; [x] Data Review and interpretation [x] Patient assessment and monitoring of vital signs [x] Documentation [x] Medication orders and management Subjective Date of service: 11/27/21 Principal diagnosis: Septic shock; AHRF; Anemia; Pneumonia; L. pleural effusion; HFrEF; Pulm HTN Interval history: Patient is seen today for: Septic shock; Acute hypoxemic respiratory failure; Anemia; Bilateral pneumonia; Left pleural effusion; HFrEF 30-35%; Pulm HTN RVSP 49 Seen and examined at bedside; 24hour events reviewed; nursing and respiratory care staff consulted; no adverse overnight events reported to me; resting in bed; remains on MVS; s/p trach; CXR with increased bilateral infiltrates; no N/V/F/C Objective Vital Signs - 12hr 11/26/21 11/27/21 11/27/21 23:58 00:00 00:16 Temperature 98.2 F Pulse Rate 80 78 80 Pulse Rate [ 76 From Monitor] Respiratory 15 14 19 Rate Blood Pressure 129/58 122/54 122/54 O2 Sat by Pulse 100 100 100 Oximetry 11/27/21 11/27/21 11/27/21 00:30 00:46 00:59 Temperature Pulse Rate 77 76 75 Pulse Rate [ From Monitor] Respiratory 15 11 L Rate Blood Pressure 123/52 123/52 123/52 O2 Sat by Pulse 100 98 99 Oximetry 11/27/21 11/27/21 11/27/21 01:00 01:16 01:30 Temperature Pulse Rate 75 73 80 Pulse Rate [ From Monitor] Respiratory 14 14 15 Rate Blood Pressure 112/47 112/47 110/52 O2 Sat by Pulse 99 99 98 Oximetry 11/27/21 11/27/21 11/27/21 01:46 02:00 02:16 Temperature Pulse Rate 81 75 72 Pulse Rate [ From Monitor] Respiratory 14 14 14 Rate Blood Pressure 110/52 100/40 100/40 O2 Sat by Pulse 100 99 99 Oximetry 11/27/21 11/27/21 11/27/21 02:30 02:46 03:00 Temperature Pulse Rate 68 68 67 Pulse Rate [ From Monitor] Respiratory 14 14 14 Rate Blood Pressure 93/38 93/38 91/39 O2 Sat by Pulse 99 99 98 Oximetry 11/27/21 11/27/21 11/27/21 03:16 03:30 03:46 Temperature Pulse Rate 68 68 69 Pulse Rate [ From Monitor] Respiratory 14 14 14 Rate Blood Pressure 91/39 92/39 92/39 O2 Sat by Pulse 99 99 99 Oximetry 11/27/21 11/27/21 11/27/21 04:00 04:16 04:30 Temperature 98.8 F Pulse Rate 73 71 72 Pulse Rate [ 70 From Monitor] Respiratory 13 14 14 Rate Blood Pressure 109/47 109/47 102/42 O2 Sat by Pulse 100 100 100 Oximetry 11/27/21 11/27/21 11/27/21 04:46 05:00 05:15 Temperature Pulse Rate 73 70 79 Pulse Rate [ From Monitor] Respiratory 14 14 Rate Blood Pressure 102/42 103/41 103/41 O2 Sat by Pulse 100 100 100 Oximetry 11/27/21 11/27/21 11/27/21 05:16 05:30 05:46 Temperature Pulse Rate 75 80 91 H Pulse Rate [ From Monitor] Respiratory 14 14 18 Rate Blood Pressure 103/41 105/51 105/51 O2 Sat by Pulse 100 100 100 Oximetry 11/27/21 11/27/21 11/27/21 06:00 06:14 06:16 Temperature Pulse Rate 84 70 87 Pulse Rate [ From Monitor] Respiratory 16 16 Rate Blood Pressure 105/51 92/48 124/51 O2 Sat by Pulse 100 100 Oximetry 11/27/21 11/27/21 11/27/21 06:30 06:46 07:00 Temperature Pulse Rate 76 75 75 Pulse Rate [ From Monitor] Respiratory 14 14 14 Rate Blood Pressure 102/41 102/41 100/41 O2 Sat by Pulse 100 100 98 Oximetry 11/27/21 11/27/21 11/27/21 07:16 07:30 07:46 Temperature Pulse Rate 81 80 81 Pulse Rate [ From Monitor] Respiratory 14 16 15 Rate Blood Pressure 100/41 112/47 112/47 O2 Sat by Pulse 98 100 Oximetry 11/27/21 11/27/21 11/27/21 07:48 08:00 08:16 Temperature 97.7 F Pulse Rate 83 80 77 Pulse Rate [ From Monitor] Respiratory 18 14 Rate Blood Pressure 112/47 116/54 116/54 O2 Sat by Pulse 100 94 Oximetry 11/27/21 11/27/21 11/27/21 08:30 08:46 09:00 Temperature Pulse Rate 83 82 83 Pulse Rate [ From Monitor] Respiratory 18 14 19 Rate Blood Pressure 121/54 121/54 120/58 O2 Sat by Pulse 99 100 91 Oximetry 11/27/21 11/27/21 11/27/21 09:12 09:16 09:30 Temperature Pulse Rate 84 84 83 Pulse Rate [ From Monitor] Respiratory 16 15 Rate Blood Pressure 120/58 120/58 115/53 O2 Sat by Pulse 100 100 Oximetry 11/27/21 11/27/21 11/27/21 09:46 10:00 10:16 Temperature Pulse Rate 90 92 H 89 Pulse Rate [ From Monitor] Respiratory 17 17 16 Rate Blood Pressure 115/53 103/52 103/52 O2 Sat by Pulse 100 Oximetry 11/27/21 11/27/21 11/27/21 10:30 10:46 11:00 Temperature Pulse Rate 91 H 88 87 Pulse Rate [ From Monitor] Respiratory 15 15 16 Rate Blood Pressure 121/47 121/47 109/47 O2 Sat by Pulse Oximetry 11/27/21 11/27/21 11:04 11:16 Temperature Pulse Rate 84 87 Pulse Rate [ From Monitor] Respiratory 13 Rate Blood Pressure 121/47 109/47 O2 Sat by Pulse 98 Oximetry Constitutional: no acute distress, other (ETT to MVS, frail elderly woman with m ildly increased respiratory effort at rest) Eyes: non-icteric ENT: oropharynx moist, oropharyngeal exudate pre (clear frothy), other (+ Midline tracheostomy) Neck: supple, no lymphadenopathy, no JVD Effort: mildly labored Ascultation: Bilateral: diminished breath sounds, rhonchi Percussion: Bilateral: not dull Cardiovascular: regular rate and rhythm, other (S1,S2) Gastrointestinal: normoactive bowel sounds, soft, non-tender, non-distended (protuberant) Integumentary: normal Extremities: no cyanosis, pink and warm, pulses normal, edema (upper etremities) Neurologic: non-focal exam (grossly), pupils equal and round, CN II-XII normal, other (sedated) Psychiatric: mood appropriate, affect normal CBC and BMP: 11/27/21 07:40 11/27/21 07:40 ABG, PT/INR, D-dimer: ABG ABG pH 7.449 pH Units (7.350-7.450) 11/21/21 16:00 ABG pCO2 32.1 mm Hg 11/21/21 16:00 ABG pO2 114.2 mm Hg (80.0-90.0) H 11/21/21 16:00 ABG O2 Saturation 98.3 % (95.0-99.0) 11/21/21 16:00 PT/INR, D-dimer PT 16.9 Sec. (12.2-14.9) H 11/26/21 05:00 INR 1.24 (0.87-1.13) H 11/26/21 05:00 D-Dimer 2655.00 ng/mlDDU (0-234) H 11/11/21 04:28 Abnormal lab findings: Abnormal Labs 11/03/21 11/03/21 11/03/21 22:32 22:32 22:32 WBC 29.3 H RBC 2.93 L Hgb 6.1 L Hct 21.9 L MCV 75 L MCH 21 L MCHC 28 L RDW 19.7 H Plt Count Seg Neuts % (Manual) 97.0 H Lymphocytes % (Manual) 3.0 L Seg Neutrophils # Man 28.4 H Lymphocytes # (Manual) 0.9 L Monocytes # (Manual) PT 18.6 H INR 1.40 H D-Dimer ABG pH ABG pO2 ABG HCO3 ABG O2 Saturation ABG Base Excess ABG Hemoglobin Oxyhemoglobin Sodium Potassium Chloride Carbon Dioxide 20 L BUN 33 H Glucose 119 H POC Glucose Lactic Acid Calcium 8.3 L Phosphorus Magnesium AST ALT Alkaline Phosphatase Lactate Dehydrogenase Troponin T 0.035 H C-Reactive Protein NT-Pro-B Natriuret Pep Total Protein Albumin LDL Cholesterol Direct 34 L Vitamin B12 Crossmatch 11/03/21 11/03/21 11/03/21 22:32 22:32 23:57 WBC RBC Hgb Hct MCV MCH MCHC RDW Plt Count Seg Neuts % (Manual) Lymphocytes % (Manual) Seg Neutrophils # Man Lymphocytes # (Manual) Monocytes # (Manual) PT INR D-Dimer ABG pH ABG pO2 ABG HCO3 ABG O2 Saturation ABG Base Excess ABG Hemoglobin Oxyhemoglobin Sodium Potassium Chloride Carbon Dioxide BUN Glucose POC Glucose Lactic Acid 3.70 H* Calcium Phosphorus Magnesium AST ALT Alkaline Phosphatase 139 H Lactate Dehydrogenase Troponin T C-Reactive Protein NT-Pro-B Natriuret Pep 7895 H Total Protein Albumin 3.5 L LDL Cholesterol Direct Vitamin B12 Crossmatch See Detail 11/04/21 11/04/21 11/05/21 00:59 13:58 00:51 WBC 27.9 H RBC 3.28 L Hgb 7.3 L Hct 25.5 L MCV 78 L MCH 22 L MCHC 29 L RDW 19.1 H Plt Count Seg Neuts % (Manual) 96.0 H Lymphocytes % (Manual) 2.0 L Seg Neutrophils # Man 26.8 H Lymphocytes # (Manual) 0.6 L Monocytes # (Manual) PT INR D-Dimer ABG pH ABG pO2 ABG HCO3 ABG O2 Saturation ABG Base Excess ABG Hemoglobin Oxyhemoglobin Sodium Potassium Chloride Carbon Dioxide BUN Glucose POC Glucose Lactic Acid Calcium Phosphorus Magnesium AST ALT Alkaline Phosphatase Lactate Dehydrogenase Troponin T 0.051 H D 0.032 H D C-Reactive Protein NT-Pro-B Natriuret Pep Total Protein Albumin LDL Cholesterol Direct Vitamin B12 Crossmatch 11/05/21 11/05/21 11/05/21 06:11 06:11 06:11 WBC 31.8 H RBC 3.57 L Hgb 8.0 L Hct 27.7 L MCV 78 L MCH 22 L MCHC 29 L RDW 19.2 H Plt Count Seg Neuts % (Manual) 91.0 H Lymphocytes % (Manual) 4.5 L Seg Neutrophils # Man 28.9 H Lymphocytes # (Manual) Monocytes # (Manual) 1.1 H PT INR D-Dimer 1494.53 H ABG pH ABG pO2 ABG HCO3 ABG O2 Saturation ABG Base Excess ABG Hemoglobin Oxyhemoglobin Sodium Potassium Chloride Carbon Dioxide 19 L BUN 42 H Glucose 115 H POC Glucose Lactic Acid Calcium Phosphorus Magnesium AST 43 H ALT Alkaline Phosphatase Lactate Dehydrogenase 187 H Troponin T C-Reactive Protein 22.20 H NT-Pro-B Natriuret Pep Total Protein 6.0 L Albumin 3.2 L LDL Cholesterol Direct Vitamin B12 Crossmatch 11/05/21 11/05/21 11/06/21 06:11 12:15 00:30 WBC RBC Hgb Hct MCV MCH MCHC RDW Plt Count Seg Neuts % (Manual) Lymphocytes % (Manual) Seg Neutrophils # Man Lymphocytes # (Manual) Monocytes # (Manual) PT INR D-Dimer ABG pH ABG pO2 ABG HCO3 ABG O2 Saturation ABG Base Excess ABG Hemoglobin Oxyhemoglobin Sodium Potassium Chloride Carbon Dioxide BUN Glucose POC Glucose 113 H 69 L Lactic Acid Calcium Phosphorus Magnesium AST ALT Alkaline Phosphatase Lactate Dehydrogenase Troponin T 0.033 H C-Reactive Protein NT-Pro-B Natriuret Pep Total Protein Albumin LDL Cholesterol Direct Vitamin B12 Crossmatch 11/06/21 11/06/21 11/06/21 05:50 15:50 15:50 WBC 25.5 H RBC 3.62 L Hgb 8.0 L Hct 27.5 L MCV 76 L MCH 22 L MCHC 29 L RDW 19.6 H Plt Count Seg Neuts % (Manual) 92.0 H Lymphocytes % (Manual) 5.0 L Seg Neutrophils # Man 23.5 H Lymphocytes # (Manual) Monocytes # (Manual) PT INR D-Dimer ABG pH 7.305 L ABG pO2 ABG HCO3 15.8 L ABG O2 Saturation ABG Base Excess -9.6 L ABG Hemoglobin 8.6 L Oxyhemoglobin 94.6 L Sodium Potassium Chloride 113.9 H Carbon Dioxide 17 L BUN 56 H Glucose 114 H POC Glucose Lactic Acid Calcium 7.9 L Phosphorus Magnesium AST 1410 H ALT 934 H Alkaline Phosphatase 142 H Lactate Dehydrogenase Troponin T C-Reactive Protein NT-Pro-B Natriuret Pep Total Protein 5.0 L Albumin 2.6 L LDL Cholesterol Direct Vitamin B12 Crossmatch 11/07/21 11/07/21 11/07/21 03:30 04:50 08:07 WBC RBC Hgb Hct MCV MCH MCHC RDW Plt Count Seg Neuts % (Manual) Lymphocytes % (Manual) Seg Neutrophils # Man Lymphocytes # (Manual) Monocytes # (Manual) PT INR D-Dimer ABG pH ABG pO2 296.9 H ABG HCO3 18.1 L ABG O2 Saturation 99.5 H ABG Base Excess -5.9 L ABG Hemoglobin 7.6 L Oxyhemoglobin Sodium Potassium Chloride Carbon Dioxide BUN Glucose POC Glucose 106 H 108 H Lactic Acid Calcium Phosphorus Magnesium AST ALT Alkaline Phosphatase Lactate Dehydrogenase Troponin T C-Reactive Protein NT-Pro-B Natriuret Pep Total Protein Albumin LDL Cholesterol Direct Vitamin B12 Crossmatch 11/08/21 11/08/21 11/08/21 03:10 18:05 23:43 WBC RBC Hgb Hct MCV MCH MCHC RDW Plt Count Seg Neuts % (Manual) Lymphocytes % (Manual) Seg Neutrophils # Man Lymphocytes # (Manual) Monocytes # (Manual) PT INR D-Dimer ABG pH ABG pO2 127.4 H ABG HCO3 ABG O2 Saturation ABG Base Excess -3.4 L ABG Hemoglobin 7.4 L Oxyhemoglobin Sodium Potassium Chloride Carbon Dioxide BUN Glucose POC Glucose 113 H 141 H Lactic Acid Calcium Phosphorus Magnesium AST ALT Alkaline Phosphatase Lactate Dehydrogenase Troponin T C-Reactive Protein NT-Pro-B Natriuret Pep Total Protein Albumin LDL Cholesterol Direct Vitamin B12 Crossmatch 11/08/21 11/08/21 11/09/21 Unknown Unknown 02:00 WBC 14.5 H RBC 3.35 L Hgb 7.5 L 8.1 L Hct 25.4 L 27.6 L MCV 76 L 76 L MCH 23 L 22 L MCHC RDW 19.9 H 19.9 H Plt Count Seg Neuts % (Manual) Lymphocytes % (Manual) Seg Neutrophils # Man Lymphocytes # (Manual) Monocytes # (Manual) PT INR D-Dimer ABG pH ABG pO2 ABG HCO3 ABG O2 Saturation ABG Base Excess ABG Hemoglobin Oxyhemoglobin Sodium 154 H D Potassium 3.3 L Chloride 120.7 H Carbon Dioxide 20 L BUN 38 H Glucose POC Glucose Lactic Acid Calcium 8.3 L Phosphorus Magnesium AST ALT Alkaline Phosphatase Lactate Dehydrogenase Troponin T C-Reactive Protein NT-Pro-B Natriuret Pep Total Protein Albumin LDL Cholesterol Direct Vitamin B12 Crossmatch 11/09/21 11/09/21 11/09/21 02:00 02:31 05:12 WBC RBC Hgb Hct MCV MCH MCHC RDW Plt Count Seg Neuts % (Manual) Lymphocytes % (Manual) Seg Neutrophils # Man Lymphocytes # (Manual) Monocytes # (Manual) PT INR D-Dimer ABG pH 7.479 H ABG pO2 121.3 H ABG HCO3 ABG O2 Saturation ABG Base Excess ABG Hemoglobin 7.3 L Oxyhemoglobin Sodium Potassium Chloride 112.5 H Carbon Dioxide BUN 33 H Glucose 161 H POC Glucose 135 H Lactic Acid Calcium Phosphorus Magnesium AST 251 H ALT 481 H Alkaline Phosphatase Lactate Dehydrogenase Troponin T C-Reactive Protein NT-Pro-B Natriuret Pep Total Protein 5.0 L Albumin 2.8 L LDL Cholesterol Direct Vitamin B12 Crossmatch 11/09/21 11/09/21 11/09/21 11:33 16:32 23:28 WBC RBC Hgb Hct MCV MCH MCHC RDW Plt Count Seg Neuts % (Manual) Lymphocytes % (Manual) Seg Neutrophils # Man Lymphocytes # (Manual) Monocytes # (Manual) PT INR D-Dimer ABG pH ABG pO2 ABG HCO3 ABG O2 Saturation ABG Base Excess ABG Hemoglobin Oxyhemoglobin Sodium Potassium Chloride Carbon Dioxide BUN Glucose POC Glucose 132 H 133 H 143 H Lactic Acid Calcium Phosphorus Magnesium AST ALT Alkaline Phosphatase Lactate Dehydrogenase Troponin T C-Reactive Protein NT-Pro-B Natriuret Pep Total Protein Albumin LDL Cholesterol Direct Vitamin B12 Crossmatch 11/10/21 11/10/21 11/10/21 04:00 04:00 05:35 WBC 16.0 H RBC 3.61 L Hgb 8.0 L Hct 27.1 L MCV 75 L MCH 22 L MCHC RDW 20.4 H Plt Count Seg Neuts % (Manual) Lymphocytes % (Manual) Seg Neutrophils # Man Lymphocytes # (Manual) Monocytes # (Manual) PT INR D-Dimer ABG pH ABG pO2 ABG HCO3 ABG O2 Saturation ABG Base Excess ABG Hemoglobin Oxyhemoglobin Sodium 149 H Potassium Chloride 114.1 H Carbon Dioxide BUN 31 H Glucose 148 H POC Glucose 132 H Lactic Acid Calcium 8.2 L Phosphorus Magnesium AST ALT Alkaline Phosphatase Lactate Dehydrogenase Troponin T C-Reactive Protein NT-Pro-B Natriuret Pep Total Protein Albumin LDL Cholesterol Direct Vitamin B12 Crossmatch 11/10/21 11/10/21 11/10/21 11:31 14:08 15:35 WBC RBC Hgb Hct MCV MCH MCHC RDW Plt Count Seg Neuts % (Manual) Lymphocytes % (Manual) Seg Neutrophils # Man Lymphocytes # (Manual) Monocytes # (Manual) PT INR D-Dimer ABG pH ABG pO2 126.6 H ABG HCO3 ABG O2 Saturation ABG Base Excess ABG Hemoglobin 7.4 L Oxyhemoglobin Sodium Potassium Chloride Carbon Dioxide BUN Glucose POC Glucose 147 H Lactic Acid Calcium Phosphorus Magnesium AST ALT Alkaline Phosphatase Lactate Dehydrogenase Troponin T C-Reactive Protein NT-Pro-B Natriuret Pep Total Protein Albumin LDL Cholesterol Direct Vitamin B12 1823 H Crossmatch 11/10/21 11/11/21 11/11/21 17:53 00:55 04:28 WBC RBC Hgb Hct MCV MCH MCHC RDW Plt Count Seg Neuts % (Manual) Lymphocytes % (Manual) Seg Neutrophils # Man Lymphocytes # (Manual) Monocytes # (Manual) PT INR D-Dimer ABG pH ABG pO2 ABG HCO3 ABG O2 Saturation ABG Base Excess ABG Hemoglobin Oxyhemoglobin Sodium 149 H Potassium Chloride 112.2 H Carbon Dioxide BUN 34 H Glucose 148 H POC Glucose 140 H 145 H Lactic Acid Calcium 7.9 L Phosphorus Magnesium AST 53 H ALT 203 H Alkaline Phosphatase Lactate Dehydrogenase Troponin T C-Reactive Protein NT-Pro-B Natriuret Pep Total Protein 4.9 L Albumin 2.6 L LDL Cholesterol Direct Vitamin B12 Crossmatch 11/11/21 11/11/21 11/11/21 04:28 04:28 05:28 WBC 20.9 H RBC 3.47 L Hgb 7.5 L Hct 26.0 L MCV 75 L MCH 22 L MCHC 29 L RDW 21.6 H Plt Count 132 L Seg Neuts % (Manual) Lymphocytes % (Manual) Seg Neutrophils # Man Lymphocytes # (Manual) Monocytes # (Manual) PT INR D-Dimer 2655.00 H ABG pH ABG pO2 ABG HCO3 ABG O2 Saturation ABG Base Excess ABG Hemoglobin Oxyhemoglobin Sodium Potassium Chloride Carbon Dioxide BUN Glucose POC Glucose 154 H Lactic Acid Calcium Phosphorus Magnesium AST ALT Alkaline Phosphatase Lactate Dehydrogenase Troponin T C-Reactive Protein NT-Pro-B Natriuret Pep Total Protein Albumin LDL Cholesterol Direct Vitamin B12 Crossmatch 11/11/21 11/11/21 11/12/21 12:38 18:13 00:14 WBC RBC Hgb Hct MCV MCH MCHC RDW Plt Count Seg Neuts % (Manual) Lymphocytes % (Manual) Seg Neutrophils # Man Lymphocytes # (Manual) Monocytes # (Manual) PT INR D-Dimer ABG pH ABG pO2 ABG HCO3 ABG O2 Saturation ABG Base Excess ABG Hemoglobin Oxyhemoglobin Sodium Potassium Chloride Carbon Dioxide BUN Glucose POC Glucose 137 H 108 H 137 H Lactic Acid Calcium Phosphorus Magnesium AST ALT Alkaline Phosphatase Lactate Dehydrogenase Troponin T C-Reactive Protein NT-Pro-B Natriuret Pep Total Protein Albumin LDL Cholesterol Direct Vitamin B12 Crossmatch 11/12/21 11/12/21 11/12/21 05:40 06:24 11:12 WBC RBC Hgb Hct MCV MCH MCHC RDW Plt Count Seg Neuts % (Manual) Lymphocytes % (Manual) Seg Neutrophils # Man Lymphocytes # (Manual) Monocytes # (Manual) PT INR D-Dimer ABG pH 7.586 H ABG pO2 150.6 H ABG HCO3 27.2 H ABG O2 Saturation 99.1 H ABG Base Excess 5.2 H ABG Hemoglobin 7.5 L Oxyhemoglobin Sodium Potassium Chloride Carbon Dioxide BUN Glucose POC Glucose 132 H 140 H Lactic Acid Calcium Phosphorus Magnesium AST ALT Alkaline Phosphatase Lactate Dehydrogenase Troponin T C-Reactive Protein NT-Pro-B Natriuret Pep Total Protein Albumin LDL Cholesterol Direct Vitamin B12 Crossmatch 11/12/21 11/12/21 11/12/21 14:50 14:50 17:13 WBC 19.8 H RBC 3.27 L Hgb 7.1 L Hct 24.5 L MCV 75 L MCH 22 L MCHC 29 L RDW 22.3 H Plt Count Seg Neuts % (Manual) Lymphocytes % (Manual) Seg Neutrophils # Man Lymphocytes # (Manual) Monocytes # (Manual) PT INR D-Dimer ABG pH ABG pO2 ABG HCO3 ABG O2 Saturation ABG Base Excess ABG Hemoglobin Oxyhemoglobin Sodium 150 H Potassium 3.3 L Chloride 112.0 H Carbon Dioxide BUN 40 H Glucose 151 H POC Glucose 121 H Lactic Acid Calcium 7.4 L Phosphorus 1.70 L Magnesium 1.40 L AST ALT Alkaline Phosphatase Lactate Dehydrogenase Troponin T C-Reactive Protein NT-Pro-B Natriuret Pep Total Protein Albumin LDL Cholesterol Direct Vitamin B12 Crossmatch 11/12/21 11/13/21 11/13/21 23:19 05:34 06:30 WBC RBC Hgb Hct MCV MCH MCHC RDW Plt Count Seg Neuts % (Manual) Lymphocytes % (Manual) Seg Neutrophils # Man Lymphocytes # (Manual) Monocytes # (Manual) PT INR D-Dimer ABG pH ABG pO2 ABG HCO3 ABG O2 Saturation ABG Base Excess ABG Hemoglobin Oxyhemoglobin Sodium 149 H Potassium Chloride 60.0 L Carbon Dioxide BUN 40 H Glucose 146 H POC Glucose 113 H 132 H Lactic Acid Calcium 7.3 L Phosphorus Magnesium 2.40 H AST ALT 72 H Alkaline Phosphatase Lactate Dehydrogenase Troponin T C-Reactive Protein NT-Pro-B Natriuret Pep Total Protein 5.2 L Albumin 2.2 L LDL Cholesterol Direct Vitamin B12 Crossmatch 11/13/21 11/13/21 11/13/21 06:30 08:30 11:19 WBC 21.2 H RBC 3.12 L Hgb 6.8 L Hct 23.2 L MCV 74 L MCH 22 L MCHC 29 L RDW 22.2 H Plt Count 135 L Seg Neuts % (Manual) Lymphocytes % (Manual) Seg Neutrophils # Man Lymphocytes # (Manual) Monocytes # (Manual) PT INR D-Dimer ABG pH ABG pO2 ABG HCO3 ABG O2 Saturation ABG Base Excess ABG Hemoglobin Oxyhemoglobin Sodium Potassium Chloride Carbon Dioxide BUN Glucose POC Glucose 136 H Lactic Acid Calcium Phosphorus Magnesium AST ALT Alkaline Phosphatase Lactate Dehydrogenase Troponin T C-Reactive Protein NT-Pro-B Natriuret Pep Total Protein Albumin LDL Cholesterol Direct Vitamin B12 Crossmatch See Detail 11/13/21 11/14/21 11/14/21 18:21 00:01 04:46 WBC 20.0 H RBC 3.41 L Hgb 7.9 L Hct 26.8 L MCV MCH 23 L MCHC 29 L RDW 24.0 H Plt Count Seg Neuts % (Manual) Lymphocytes % (Manual) Seg Neutrophils # Man Lymphocytes # (Manual) Monocytes # (Manual) PT INR D-Dimer ABG pH ABG pO2 ABG HCO3 ABG O2 Saturation ABG Base Excess ABG Hemoglobin Oxyhemoglobin Sodium Potassium Chloride Carbon Dioxide BUN Glucose POC Glucose 149 H 141 H Lactic Acid Calcium Phosphorus Magnesium AST ALT Alkaline Phosphatase Lactate Dehydrogenase Troponin T C-Reactive Protein NT-Pro-B Natriuret Pep Total Protein Albumin LDL Cholesterol Direct Vitamin B12 Crossmatch 11/14/21 11/14/21 11/14/21 04:46 05:10 11:10 WBC RBC Hgb Hct MCV MCH MCHC RDW Plt Count Seg Neuts % (Manual) Lymphocytes % (Manual) Seg Neutrophils # Man Lymphocytes # (Manual) Monocytes # (Manual) PT INR D-Dimer ABG pH ABG pO2 ABG HCO3 ABG O2 Saturation ABG Base Excess ABG Hemoglobin Oxyhemoglobin Sodium 148 H Potassium Chloride 113.1 H Carbon Dioxide BUN 43 H Glucose 140 H POC Glucose 132 H 133 H Lactic Acid Calcium 7.5 L Phosphorus Magnesium AST ALT Alkaline Phosphatase Lactate Dehydrogenase Troponin T C-Reactive Protein NT-Pro-B Natriuret Pep Total Protein Albumin LDL Cholesterol Direct Vitamin B12 Crossmatch 11/14/21 11/14/21 11/14/21 16:14 17:48 23:23 WBC RBC Hgb Hct MCV MCH MCHC RDW Plt Count Seg Neuts % (Manual) Lymphocytes % (Manual) Seg Neutrophils # Man Lymphocytes # (Manual) Monocytes # (Manual) PT INR D-Dimer ABG pH ABG pO2 ABG HCO3 28.0 H ABG O2 Saturation ABG Base Excess 3.1 H ABG Hemoglobin 5.8 L Oxyhemoglobin 94.8 L Sodium Potassium Chloride Carbon Dioxide BUN Glucose POC Glucose 130 H 136 H Lactic Acid Calcium Phosphorus Magnesium AST ALT Alkaline Phosphatase Lactate Dehydrogenase Troponin T C-Reactive Protein NT-Pro-B Natriuret Pep Total Protein Albumin LDL Cholesterol Direct Vitamin B12 Crossmatch 11/15/21 11/15/21 11/15/21 05:20 05:50 05:50 WBC 19.9 H RBC 3.50 L Hgb 8.2 L Hct 27.9 L MCV MCH 23 L MCHC 29 L RDW 24.9 H Plt Count Seg Neuts % (Manual) Lymphocytes % (Manual) Seg Neutrophils # Man Lymphocytes # (Manual) Monocytes # (Manual) PT INR D-Dimer ABG pH ABG pO2 ABG HCO3 ABG O2 Saturation ABG Base Excess ABG Hemoglobin Oxyhemoglobin Sodium 149 H Potassium Chloride 112.0 H Carbon Dioxide BUN 48 H Glucose 152 H POC Glucose 137 H Lactic Acid Calcium 7.9 L Phosphorus Magnesium AST ALT Alkaline Phosphatase Lactate Dehydrogenase Troponin T C-Reactive Protein NT-Pro-B Natriuret Pep Total Protein Albumin LDL Cholesterol Direct Vitamin B12 Crossmatch 11/15/21 11/15/21 11/15/21 12:12 17:07 23:24 WBC RBC Hgb Hct MCV MCH MCHC RDW Plt Count Seg Neuts % (Manual) Lymphocytes % (Manual) Seg Neutrophils # Man Lymphocytes # (Manual) Monocytes # (Manual) PT INR D-Dimer ABG pH ABG pO2 ABG HCO3 ABG O2 Saturation ABG Base Excess ABG Hemoglobin Oxyhemoglobin Sodium Potassium Chloride Carbon Dioxide BUN Glucose POC Glucose 114 H 135 H 123 H Lactic Acid Calcium Phosphorus Magnesium AST ALT Alkaline Phosphatase Lactate Dehydrogenase Troponin T C-Reactive Protein NT-Pro-B Natriuret Pep Total Protein Albumin LDL Cholesterol Direct Vitamin B12 Crossmatch 11/16/21 11/16/21 11/16/21 05:21 10:00 10:00 WBC 21.7 H RBC 2.57 L Hgb 6.0 L Hct 20.2 L D MCV MCH 24 L MCHC RDW 26.3 H Plt Count Seg Neuts % (Manual) Lymphocytes % (Manual) Seg Neutrophils # Man Lymphocytes # (Manual) Monocytes # (Manual) PT INR D-Dimer ABG pH ABG pO2 ABG HCO3 ABG O2 Saturation ABG Base Excess ABG Hemoglobin Oxyhemoglobin Sodium 153 H Potassium Chloride 114.9 H Carbon Dioxide BUN 74 H Glucose 155 H POC Glucose 127 H Lactic Acid Calcium 8.1 L Phosphorus Magnesium AST ALT Alkaline Phosphatase Lactate Dehydrogenase Troponin T C-Reactive Protein NT-Pro-B Natriuret Pep Total Protein Albumin LDL Cholesterol Direct Vitamin B12 Crossmatch 11/16/21 11/16/21 11/16/21 11:34 14:00 15:25 WBC 17.2 H RBC 2.08 L Hgb 4.7 L* Hct 16.2 L* MCV 78 L MCH 23 L MCHC 29 L RDW 26.0 H Plt Count Seg Neuts % (Manual) 87.0 H Lymphocytes % (Manual) 8.0 L Seg Neutrophils # Man 15.0 H Lymphocytes # (Manual) Monocytes # (Manual) 0.9 H PT INR D-Dimer ABG pH ABG pO2 ABG HCO3 ABG O2 Saturation ABG Base Excess ABG Hemoglobin Oxyhemoglobin Sodium Potassium Chloride Carbon Dioxide BUN Glucose POC Glucose 131 H Lactic Acid Calcium Phosphorus Magnesium AST ALT Alkaline Phosphatase Lactate Dehydrogenase Troponin T C-Reactive Protein NT-Pro-B Natriuret Pep Total Protein Albumin LDL Cholesterol Direct Vitamin B12 Crossmatch See Detail 11/16/21 11/16/21 11/16/21 15:25 17:21 22:43 WBC RBC Hgb 8.6 L D Hct 27.7 L D MCV MCH MCHC RDW Plt Count Seg Neuts % (Manual) Lymphocytes % (Manual) Seg Neutrophils # Man Lymphocytes # (Manual) Monocytes # (Manual) PT INR D-Dimer ABG pH ABG pO2 ABG HCO3 ABG O2 Saturation ABG Base Excess ABG Hemoglobin Oxyhemoglobin Sodium 148 H Potassium Chloride 113.2 H Carbon Dioxide BUN 84 H Glucose 164 H POC Glucose 124 H Lactic Acid Calcium 7.6 L Phosphorus Magnesium AST ALT Alkaline Phosphatase Lactate Dehydrogenase Troponin T C-Reactive Protein NT-Pro-B Natriuret Pep Total Protein Albumin LDL Cholesterol Direct Vitamin B12 Crossmatch 11/16/21 11/17/21 11/17/21 23:07 05:33 05:56 WBC 25.1 H RBC 3.47 L Hgb 8.7 L Hct 28.5 L MCV MCH 25 L MCHC RDW 22.3 H Plt Count Seg Neuts % (Manual) Lymphocytes % (Manual) Seg Neutrophils # Man Lymphocytes # (Manual) Monocytes # (Manual) PT INR D-Dimer ABG pH ABG pO2 ABG HCO3 ABG O2 Saturation ABG Base Excess ABG Hemoglobin Oxyhemoglobin Sodium Potassium Chloride Carbon Dioxide BUN Glucose POC Glucose 128 H 133 H Lactic Acid Calcium Phosphorus Magnesium AST ALT Alkaline Phosphatase Lactate Dehydrogenase Troponin T C-Reactive Protein NT-Pro-B Natriuret Pep Total Protein Albumin LDL Cholesterol Direct Vitamin B12 Crossmatch 11/17/21 11/17/21 11/17/21 05:56 11:00 11:55 WBC RBC Hgb 8.3 L Hct 26.9 L MCV MCH MCHC RDW Plt Count Seg Neuts % (Manual) Lymphocytes % (Manual) Seg Neutrophils # Man Lymphocytes # (Manual) Monocytes # (Manual) PT INR D-Dimer ABG pH ABG pO2 ABG HCO3 ABG O2 Saturation ABG Base Excess ABG Hemoglobin Oxyhemoglobin Sodium 151 H Potassium Chloride 113.6 H Carbon Dioxide BUN 85 H Glucose 132 H POC Glucose 121 H Lactic Acid Calcium 7.8 L Phosphorus Magnesium AST ALT Alkaline Phosphatase Lactate Dehydrogenase Troponin T C-Reactive Protein NT-Pro-B Natriuret Pep Total Protein 5.1 L Albumin 2.2 L LDL Cholesterol Direct Vitamin B12 Crossmatch 11/17/21 11/17/21 11/18/21 18:04 18:55 00:26 WBC RBC Hgb 7.5 L 7.1 L Hct 24.8 L 23.6 L MCV MCH MCHC RDW Plt Count Seg Neuts % (Manual) Lymphocytes % (Manual) Seg Neutrophils # Man Lymphocytes # (Manual) Monocytes # (Manual) PT INR D-Dimer ABG pH ABG pO2 ABG HCO3 ABG O2 Saturation ABG Base Excess ABG Hemoglobin Oxyhemoglobin Sodium Potassium Chloride Carbon Dioxide BUN Glucose POC Glucose 144 H Lactic Acid Calcium Phosphorus Magnesium AST ALT Alkaline Phosphatase Lactate Dehydrogenase Troponin T C-Reactive Protein NT-Pro-B Natriuret Pep Total Protein Albumin LDL Cholesterol Direct Vitamin B12 Crossmatch 11/18/21 11/18/21 11/18/21 00:43 05:10 05:10 WBC 12.5 H RBC 2.39 L Hgb 6.1 L Hct 20.2 L MCV MCH 25 L MCHC RDW 23.2 H Plt Count Seg Neuts % (Manual) Lymphocytes % (Manual) Seg Neutrophils # Man Lymphocytes # (Manual) Monocytes # (Manual) PT INR D-Dimer ABG pH ABG pO2 ABG HCO3 ABG O2 Saturation ABG Base Excess ABG Hemoglobin Oxyhemoglobin Sodium 131 L D Potassium 2.9 L* D Chloride 97.8 L Carbon Dioxide BUN 58 H Glucose 665 H* POC Glucose 139 H Lactic Acid Calcium 7.0 L Phosphorus 2.20 L D Magnesium 1.50 L AST ALT Alkaline Phosphatase Lactate Dehydrogenase Troponin T C-Reactive Protein NT-Pro-B Natriuret Pep Total Protein Albumin LDL Cholesterol Direct Vitamin B12 Crossmatch 11/18/21 11/18/21 11/18/21 05:23 07:10 10:45 WBC RBC Hgb Hct MCV MCH MCHC RDW Plt Count Seg Neuts % (Manual) Lymphocytes % (Manual) Seg Neutrophils # Man Lymphocytes # (Manual) Monocytes # (Manual) PT INR D-Dimer ABG pH ABG pO2 ABG HCO3 ABG O2 Saturation ABG Base Excess ABG Hemoglobin Oxyhemoglobin Sodium 148 H D Potassium 3.1 L Chloride 111.9 H Carbon Dioxide BUN 63 H Glucose 141 H POC Glucose 124 H Lactic Acid Calcium 8.1 L D Phosphorus Magnesium AST ALT Alkaline Phosphatase Lactate Dehydrogenase Troponin T C-Reactive Protein NT-Pro-B Natriuret Pep Total Protein Albumin LDL Cholesterol Direct Vitamin B12 Crossmatch See Detail 11/18/21 11/19/21 11/19/21 11:57 00:19 04:55 WBC RBC 3.35 L Hgb 9.0 L 8.9 L Hct 28.3 L D 28.1 L MCV MCH 27 L MCHC RDW 20.3 H Plt Count Seg Neuts % (Manual) Lymphocytes % (Manual) Seg Neutrophils # Man Lymphocytes # (Manual) Monocytes # (Manual) PT INR D-Dimer ABG pH ABG pO2 ABG HCO3 ABG O2 Saturation ABG Base Excess ABG Hemoglobin Oxyhemoglobin Sodium Potassium Chloride Carbon Dioxide BUN Glucose POC Glucose 119 H Lactic Acid Calcium Phosphorus Magnesium AST ALT Alkaline Phosphatase Lactate Dehydrogenase Troponin T C-Reactive Protein NT-Pro-B Natriuret Pep Total Protein Albumin LDL Cholesterol Direct Vitamin B12 Crossmatch 11/19/21 11/19/21 11/20/21 04:55 05:42 00:55 WBC RBC Hgb 9.0 L Hct 28.6 L MCV MCH MCHC RDW Plt Count Seg Neuts % (Manual) Lymphocytes % (Manual) Seg Neutrophils # Man Lymphocytes # (Manual) Monocytes # (Manual) PT INR D-Dimer ABG pH ABG pO2 ABG HCO3 ABG O2 Saturation ABG Base Excess ABG Hemoglobin Oxyhemoglobin Sodium Potassium 3.5 L Chloride 108.6 H Carbon Dioxide BUN 47 H Glucose 207 H POC Glucose 63 L Lactic Acid Calcium 7.1 L Phosphorus Magnesium AST ALT Alkaline Phosphatase Lactate Dehydrogenase Troponin T C-Reactive Protein NT-Pro-B Natriuret Pep Total Protein Albumin LDL Cholesterol Direct Vitamin B12 Crossmatch 11/20/21 11/20/21 11/20/21 05:40 05:40 Unknown WBC RBC 3.40 L Hgb 9.1 L Hct 28.8 L MCV MCH 27 L MCHC RDW 20.7 H Plt Count Seg Neuts % (Manual) Lymphocytes % (Manual) Seg Neutrophils # Man Lymphocytes # (Manual) Monocytes # (Manual) PT INR D-Dimer ABG pH ABG pO2 ABG HCO3 ABG O2 Saturation ABG Base Excess -2.7 L ABG Hemoglobin 9.5 L Oxyhemoglobin 94.3 L Sodium Potassium 3.5 L Chloride 108.9 H Carbon Dioxide BUN 37 H Glucose 117 H POC Glucose Lactic Acid Calcium 7.5 L Phosphorus Magnesium AST ALT Alkaline Phosphatase Lactate Dehydrogenase Troponin T C-Reactive Protein NT-Pro-B Natriuret Pep Total Protein Albumin LDL Cholesterol Direct Vitamin B12 Crossmatch 11/21/21 11/21/21 11/21/21 04:30 04:30 16:00 WBC RBC 3.25 L Hgb 8.6 L Hct 28.1 L MCV MCH 26 L MCHC RDW 20.7 H Plt Count Seg Neuts % (Manual) Lymphocytes % (Manual) Seg Neutrophils # Man Lymphocytes # (Manual) Monocytes # (Manual) PT INR D-Dimer ABG pH ABG pO2 114.2 H ABG HCO3 ABG O2 Saturation ABG Base Excess ABG Hemoglobin 9.1 L Oxyhemoglobin Sodium 134 L Potassium Chloride Carbon Dioxide 20 L BUN 34 H Glucose POC Glucose Lactic Acid Calcium 7.1 L Phosphorus Magnesium AST ALT Alkaline Phosphatase Lactate Dehydrogenase Troponin T C-Reactive Protein NT-Pro-B Natriuret Pep Total Protein Albumin LDL Cholesterol Direct Vitamin B12 Crossmatch 11/22/21 11/22/21 11/22/21 07:07 07:07 23:54 WBC RBC 3.30 L Hgb 9.0 L Hct 28.5 L MCV MCH 27 L MCHC RDW 21.0 H Plt Count Seg Neuts % (Manual) Lymphocytes % (Manual) Seg Neutrophils # Man Lymphocytes # (Manual) Monocytes # (Manual) PT INR D-Dimer ABG pH ABG pO2 ABG HCO3 ABG O2 Saturation ABG Base Excess ABG Hemoglobin Oxyhemoglobin Sodium Potassium Chloride Carbon Dioxide BUN 32 H Glucose 106 H POC Glucose 110 H Lactic Acid Calcium 7.5 L Phosphorus Magnesium AST ALT Alkaline Phosphatase Lactate Dehydrogenase Troponin T C-Reactive Protein NT-Pro-B Natriuret Pep Total Protein Albumin LDL Cholesterol Direct Vitamin B12 Crossmatch 11/23/21 11/23/21 11/23/21 04:38 04:38 06:01 WBC RBC 3.23 L Hgb 8.8 L Hct 28.0 L MCV MCH 27 L MCHC RDW 21.3 H Plt Count Seg Neuts % (Manual) Lymphocytes % (Manual) Seg Neutrophils # Man Lymphocytes # (Manual) Monocytes # (Manual) PT INR D-Dimer ABG pH ABG pO2 ABG HCO3 ABG O2 Saturation ABG Base Excess ABG Hemoglobin Oxyhemoglobin Sodium 136 L Potassium Chloride Carbon Dioxide 20 L BUN 32 H Glucose 109 H POC Glucose 115 H Lactic Acid Calcium 7.7 L Phosphorus Magnesium AST ALT Alkaline Phosphatase Lactate Dehydrogenase Troponin T C-Reactive Protein NT-Pro-B Natriuret Pep Total Protein Albumin LDL Cholesterol Direct Vitamin B12 Crossmatch 11/23/21 11/24/21 11/24/21 11:40 00:03 04:13 WBC RBC 3.18 L Hgb 8.5 L Hct 27.5 L MCV MCH 27 L MCHC RDW 21.6 H Plt Count Seg Neuts % (Manual) Lymphocytes % (Manual) Seg Neutrophils # Man Lymphocytes # (Manual) Monocytes # (Manual) PT INR D-Dimer ABG pH ABG pO2 ABG HCO3 ABG O2 Saturation ABG Base Excess ABG Hemoglobin Oxyhemoglobin Sodium Potassium Chloride Carbon Dioxide BUN Glucose POC Glucose 117 H 111 H Lactic Acid Calcium Phosphorus Magnesium AST ALT Alkaline Phosphatase Lactate Dehydrogenase Troponin T C-Reactive Protein NT-Pro-B Natriuret Pep Total Protein Albumin LDL Cholesterol Direct Vitamin B12 Crossmatch 11/24/21 11/24/21 11/24/21 04:13 05:30 11:10 WBC RBC Hgb Hct MCV MCH MCHC RDW Plt Count Seg Neuts % (Manual) Lymphocytes % (Manual) Seg Neutrophils # Man Lymphocytes # (Manual) Monocytes # (Manual) PT INR D-Dimer ABG pH ABG pO2 ABG HCO3 ABG O2 Saturation ABG Base Excess ABG Hemoglobin Oxyhemoglobin Sodium Potassium Chloride Carbon Dioxide BUN 31 H Glucose 101 H POC Glucose 115 H 107 H Lactic Acid Calcium 7.7 L Phosphorus Magnesium AST ALT Alkaline Phosphatase Lactate Dehydrogenase Troponin T C-Reactive Protein NT-Pro-B Natriuret Pep Total Protein Albumin LDL Cholesterol Direct Vitamin B12 Crossmatch 11/24/21 11/24/21 11/25/21 16:34 17:57 05:12 WBC RBC 3.11 L Hgb 8.2 L Hct 26.6 L MCV MCH 26 L MCHC RDW 21.3 H Plt Count Seg Neuts % (Manual) Lymphocytes % (Manual) Seg Neutrophils # Man Lymphocytes # (Manual) Monocytes # (Manual) PT INR D-Dimer ABG pH ABG pO2 ABG HCO3 ABG O2 Saturation ABG Base Excess ABG Hemoglobin Oxyhemoglobin Sodium Potassium Chloride Carbon Dioxide BUN Glucose POC Glucose 115 H 110 H Lactic Acid Calcium Phosphorus Magnesium AST ALT Alkaline Phosphatase Lactate Dehydrogenase Troponin T C-Reactive Protein NT-Pro-B Natriuret Pep Total Protein Albumin LDL Cholesterol Direct Vitamin B12 Crossmatch 11/25/21 11/25/21 11/26/21 05:12 11:20 05:00 WBC RBC 3.30 L Hgb 8.8 L Hct 28.2 L MCV MCH 27 L MCHC RDW 20.7 H Plt Count Seg Neuts % (Manual) Lymphocytes % (Manual) Seg Neutrophils # Man Lymphocytes # (Manual) Monocytes # (Manual) PT INR D-Dimer ABG pH ABG pO2 ABG HCO3 ABG O2 Saturation ABG Base Excess ABG Hemoglobin Oxyhemoglobin Sodium Potassium Chloride Carbon Dioxide BUN 32 H Glucose 118 H POC Glucose 118 H Lactic Acid Calcium 8.2 L Phosphorus Magnesium AST ALT Alkaline Phosphatase Lactate Dehydrogenase Troponin T C-Reactive Protein NT-Pro-B Natriuret Pep Total Protein Albumin LDL Cholesterol Direct Vitamin B12 Crossmatch 11/26/21 11/26/21 11/26/21 05:00 05:00 05:44 WBC RBC Hgb Hct MCV MCH MCHC RDW Plt Count Seg Neuts % (Manual) Lymphocytes % (Manual) Seg Neutrophils # Man Lymphocytes # (Manual) Monocytes # (Manual) PT 16.9 H INR 1.24 H D-Dimer ABG pH ABG pO2 ABG HCO3 ABG O2 Saturation ABG Base Excess ABG Hemoglobin Oxyhemoglobin Sodium Potassium Chloride Carbon Dioxide BUN 31 H Glucose 104 H POC Glucose 110 H Lactic Acid Calcium 7.9 L Phosphorus Magnesium AST ALT Alkaline Phosphatase Lactate Dehydrogenase Troponin T C-Reactive Protein NT-Pro-B Natriuret Pep Total Protein Albumin LDL Cholesterol Direct Vitamin B12 Crossmatch 11/26/21 11/27/21 11/27/21 23:55 07:40 07:40 WBC RBC 3.18 L Hgb 8.5 L Hct 27.0 L MCV MCH 27 L MCHC RDW 21.2 H Plt Count Seg Neuts % (Manual) Lymphocytes % (Manual) Seg Neutrophils # Man Lymphocytes # (Manual) Monocytes # (Manual) PT INR D-Dimer ABG pH ABG pO2 ABG HCO3 ABG O2 Saturation ABG Base Excess ABG Hemoglobin Oxyhemoglobin Sodium Potassium Chloride Carbon Dioxide BUN 27 H Glucose 112 H POC Glucose 63 L Lactic Acid Calcium 7.6 L Phosphorus Magnesium AST ALT Alkaline Phosphatase Lactate Dehydrogenase Troponin T C-Reactive Protein NT-Pro-B Natriuret Pep Total Protein Albumin LDL Cholesterol Direct Vitamin B12 Crossmatch Chest x-ray: image reviewed (increased bilateral infiltrates; Trach tube in good position) Allied health notes reviewed: nursing
[2021-11-27] MEDS: FUROSEMIDE 20 MG/2 ML INJ IV SCH (14:17)
--- NOTE | 2021-11-27 17:31 | Progress Note ---
Assessment and Plan 81 yo F s/p percutaneous tracheostomy, fiberoptic bronchoscopy, PEG tube placement, postop day 1 Plan: 1. trach management as per protocol 2. vent management per ICU team 3. continue TF as tolerated 4. no further surgical intervention - will s/o Thank you, please call with questions. Subjective Date of service: 11/27/21 Narrative: Pt seen and examined. Much more alert today and following commands, answering questions. No overnight events. Objective Vital Signs - 12hr 11/27/21 11/27/21 11/27/21 05:30 05:46 06:00 Temperature Pulse Rate 80 91 H 84 Pulse Rate [ From Monitor] Respiratory 14 18 16 Rate Blood Pressure 105/51 105/51 105/51 O2 Sat by Pulse 100 100 100 Oximetry O2 Sat by Pulse Oximetry [ Assessment] 11/27/21 11/27/21 11/27/21 06:14 06:16 06:30 Temperature Pulse Rate 70 87 76 Pulse Rate [ From Monitor] Respiratory 16 14 Rate Blood Pressure 92/48 124/51 102/41 O2 Sat by Pulse 100 100 Oximetry O2 Sat by Pulse Oximetry [ Assessment] 11/27/21 11/27/21 11/27/21 06:46 07:00 07:16 Temperature Pulse Rate 75 75 81 Pulse Rate [ From Monitor] Respiratory 14 14 14 Rate Blood Pressure 102/41 100/41 100/41 O2 Sat by Pulse 100 98 98 Oximetry O2 Sat by Pulse Oximetry [ Assessment] 11/27/21 11/27/21 11/27/21 07:30 07:46 07:48 Temperature Pulse Rate 80 81 83 Pulse Rate [ From Monitor] Respiratory 16 15 Rate Blood Pressure 112/47 112/47 112/47 O2 Sat by Pulse 100 100 Oximetry O2 Sat by Pulse Oximetry [ Assessment] 11/27/21 11/27/21 11/27/21 08:00 08:16 08:30 Temperature 97.7 F Pulse Rate 83 77 83 Pulse Rate [ 83 From Monitor] Respiratory 18 14 18 Rate Blood Pressure 116/54 116/54 121/54 O2 Sat by Pulse 100 94 99 Oximetry O2 Sat by Pulse Oximetry [ Assessment] 11/27/21 11/27/21 11/27/21 08:46 09:00 09:12 Temperature Pulse Rate 82 83 84 Pulse Rate [ From Monitor] Respiratory 14 19 Rate Blood Pressure 121/54 120/58 120/58 O2 Sat by Pulse 100 91 Oximetry O2 Sat by Pulse Oximetry [ Assessment] 11/27/21 11/27/21 11/27/21 09:16 09:30 09:46 Temperature Pulse Rate 84 83 90 Pulse Rate [ From Monitor] Respiratory 16 15 17 Rate Blood Pressure 120/58 115/53 115/53 O2 Sat by Pulse 100 100 100 Oximetry O2 Sat by Pulse Oximetry [ Assessment] 11/27/21 11/27/21 11/27/21 10:00 10:16 10:30 Temperature Pulse Rate 92 H 89 91 H Pulse Rate [ From Monitor] Respiratory 17 16 15 Rate Blood Pressure 103/52 103/52 121/47 O2 Sat by Pulse Oximetry O2 Sat by Pulse Oximetry [ Assessment] 11/27/21 11/27/21 11/27/21 10:46 11:00 11:04 Temperature Pulse Rate 88 87 84 Pulse Rate [ From Monitor] Respiratory 15 16 Rate Blood Pressure 121/47 109/47 121/47 O2 Sat by Pulse 98 Oximetry O2 Sat by Pulse Oximetry [ Assessment] 11/27/21 11/27/21 11/27/21 11:16 11:30 11:46 Temperature Pulse Rate 87 87 86 Pulse Rate [ From Monitor] Respiratory 13 15 16 Rate Blood Pressure 109/47 113/48 113/48 O2 Sat by Pulse Oximetry O2 Sat by Pulse Oximetry [ Assessment] 11/27/21 11/27/21 11/27/21 12:00 12:16 12:30 Temperature 99.6 F Pulse Rate 83 81 85 Pulse Rate [ 80 From Monitor] Respiratory 18 14 15 Rate Blood Pressure 104/53 104/53 110/51 O2 Sat by Pulse 100 100 100 Oximetry O2 Sat by Pulse Oximetry [ Assessment] 11/27/21 11/27/21 11/27/21 12:46 13:00 13:16 Temperature Pulse Rate 85 82 80 Pulse Rate [ From Monitor] Respiratory 15 14 14 Rate Blood Pressure 110/51 105/45 105/45 O2 Sat by Pulse 98 100 100 Oximetry O2 Sat by Pulse Oximetry [ Assessment] 11/27/21 11/27/21 11/27/21 13:30 13:46 14:00 Temperature Pulse Rate 92 H 85 88 Pulse Rate [ From Monitor] Respiratory 13 14 15 Rate Blood Pressure 118/58 118/58 122/55 O2 Sat by Pulse 100 100 100 Oximetry O2 Sat by Pulse Oximetry [ Assessment] 11/27/21 11/27/21 11/27/21 14:25 15:01 16:00 Temperature 99.2 F Pulse Rate 95 H Pulse Rate [ From Monitor] Respiratory Rate Blood Pressure 122/55 O2 Sat by Pulse 100 Oximetry O2 Sat by Pulse 100 Oximetry [ Assessment] - General physical appearance Narrative Exam: Gen.: Awake, alert. On vent. Answers questions appropriately and following commands. No apparent distress ENT: Tracheostomy in place - no swelling, bleeding. No lymphadenopathy. No scleral icterus or conjunctival pallor CV: S1, S2 present Respiratory: No audible wheezes Abdomen: Soft, moderately distended, nontender. PEG in place - bumper slightly loosened - remains at 2cm at skin No rebound, rigidity, guarding Extremities: No clubbing, cyanosis, edema - Labs 11/27/21 07:40 11/27/21 07:40 Diabetes panel 11/27/21 Range/Units 07:40 Sodium 139 (137-145) mmol/L Potassium 4.4 (3.6-5.0) mmol/L Chloride 105.3 (98-107) mmol/L Carbon Dioxide 25 (22-30) mmol/L BUN 27 H (7-17) mg/dL Creatinine 0.8 (0.6-1.2) mg/dL Glucose 112 H (65-100) mg/dL Calcium 7.6 L (8.4-10.2) mg/dL Calcium panel 11/27/21 Range/Units 07:40 Calcium 7.6 L (8.4-10.2) mg/dL Pituitary panel 11/27/21 Range/Units 07:40 Sodium 139 (137-145) mmol/L Potassium 4.4 (3.6-5.0) mmol/L Chloride 105.3 (98-107) mmol/L Carbon Dioxide 25 (22-30) mmol/L BUN 27 H (7-17) mg/dL Creatinine 0.8 (0.6-1.2) mg/dL Glucose 112 H (65-100) mg/dL Calcium 7.6 L (8.4-10.2) mg/dL Adrenal panel 11/27/21 Range/Units 07:40 Sodium 139 (137-145) mmol/L Potassium 4.4 (3.6-5.0) mmol/L Chloride 105.3 (98-107) mmol/L Carbon Dioxide 25 (22-30) mmol/L BUN 27 H (7-17) mg/dL Creatinine 0.8 (0.6-1.2) mg/dL Glucose 112 H (65-100) mg/dL Calcium 7.6 L (8.4-10.2) mg/dL
--- NOTE | 2021-11-27 17:41 | Progress Note ---
Assessment and Plan Assessment and plan: This is a 81-year-old female with known history of diabetes mellitus, hypertension, PPM, and arthritis admitted for sepsis and acute hypoxia respiratory failure 2/2 bilateral pneumonia requiring intubation and ventilatory support Assessment and Plan Neuro : Acute encephalopathy -Neurology consulted, appreciate recommendations -CT brain showed no acute events -EEG interpreted as abnormal record due to diffuse slowing and therefore5 height noted throughout the recording, suggestive of encephalopathic process and/or drug effect, possibilities of postictal state cannot be totally excluded. Clinical correlation is in order -MRI brain not obtained-> patient has metal in her body -Repeat CT head with no acute findings -Reorientation as needed -Ammonia 42, B12 1823, TSH 1.5 -BuSpar, fentanyl patch, Seroquel, [place] Cardio: Heart failure with reduced EF, h/o chronic heart block s/p PPM, HTN/CAD s/p PCI (2004) -s/p vasopressor support with levophed -map goal >65 -11/04 echocardiogram shows EF 30 to 35% -Cardiology consulted, appreciate recommendations -Continue beta-charleen and statin therapy -Not on aspirin due to allergy -Blood pressure monitoring per protocol Resp: Acute hypoxic respiratory failure secondary to bilateral pneumonia, bilateral pleural effusion. Right pneumothorax (resolved) -COVID-19 PCR negative -Intubated on 11/06 with 6.00 ETT at 18 at the lip and changed over bougie on 11/11-7.50 ETT at 20 at the lip -A.m. vent settings: Assist-control rate 14, tidal volume 400, PEEP 6, FiO2 30 % -See RT notes for titration -PSV today -Surgery consult for trach -Received trach/PEG on 11/26 -S/p bedside bronchoscopy on 11/11 complicated by pneumothorax -S/p chest tube placement for right pneumothorax and dislodgment by patient on 11/15 -ABG/CXR per CCM -VAP bundle -Right chest wall ultrasound showed pleural effusion s/p chest tube -SPO2 monitoring -Mucomyst every 8 -Albuterol every 8 GI: S/p GI bleed, duodenal ulcer,transaminitis -GI consulted, appreciate recommendations -Nutrition consult for tube feeding -BR: Senokot, MiraLAX -s/p peg trach 11/26 -H2 charleen -Carafate -24-hour -1282 ml -BM 11/25 -Gastric occult positive : Urinary retention -Gamble catheter in place -Strict intake and output -Trend BMP ID: Septic shock, POA, bilateral pneumonia, bacteremia -Infectious disease consulted, appreciate recommendations -COVID-19 PCR negative -Presented with fevers, leukocytosis and hypotension -11/04 blood cultures positive with a group B strep bacteremia however repeat blood cultures on the with no growth to date -Echo showed no evidence of vegetation -ABX therapy: Ceftriaxone (), vancomycin (11/05, ), clindamycin ), cefepime , ) -Monitor WBC and fever curve -Recultured on 11/11 with NGTD -Bedside bronchoscopy for mucous plug on CXR 11/11 Heme: Acute DVT in the right external iliac vein, common femoral vein, superior aspect of femoral vein, Acute microcytic anemia -Evidenced on bilateral upper lower extremity ultrasound -S/p 5 unit PRBC -Trend CBC -Transfuse for hemoglobin less than 7 -S/p IVC filter Endo: h/o DM and hypothyroidism -Continue home Synthroid -SSI -Accu-Cheks every 6 -Avoid hypoglycemia The high probability of a clinically significant, sudden or life threatening deterioration of the [multi] system(s) required my full and direct attention, intervention and personal management. The aggregate critical care time was [60] minutes. This time is in addition to time spent performing reported procedures but includes the following: [x] Data Review and interpretation [x] Patient assessment and monitoring of vital signs [x] Documentation [x] Medication orders and management Disposition Plan: icu Total Time Spent with Patient (Minutes): 60 History Interval history: This is an 82-year-old female with DM, HTN , PPM and arthritis who presented to the emergency department on 11/04 for shortness of breath ongoing for the past 3 days, cough and according to family a fever of 102.2. Upon arrival of EMS patient was found to be tachypneic and hypoxic with SPO2 of 76% on room air which later improved to 88% on nonrebreather. Work-up in the emergency departm ent included a CXR which showed bilateral interstitial pulmonary edema with bilateral pleural effusions and bibasilar opacities, leukocytosis and anemia with a hemoglobin of 6.1. Patient was admitted to the hospitalist service with acute anemia, acute hypoxic respiratory failure, bilateral pneumonia and COVID- 19 PUI with consults to pulmonology, infectious disease and later cardiology. Patient was eventually intubated in the emergency department on 11/06. Hospital Course to date: 11/04/2021: Empiric therapy with iv levaquin/vancomycin. COVID PCR pending. Will consult ID. PCCM consulted, will follow recs. Hypotensive this AM, ordered bolus and fluids at 150 cc/hr. May require pressor support if bp does not improve. 11/05/2021: GBS on bcx +, currently on rocephin IV. Currently on bipap due to respiratory distress overnight. Worsening BL opacities on CXR. May be volume overload vs pneumonia. Unfortunately bp too low for lasix at this point. WIll continue levophed and bipap. Once able to tolerate, may do trial of albumin/lasix. Call attempt made to Niraj, no response. Will try again tomorrow to update. 11/06/2021: Decompensated overnight requiring intubation. CXR shows worsening interstitial infiltrates. Currenlty on dopamine, levophed, vasopressin. PICC line ordered. Advised RN to place gamble for I/O monitoring. Would benefit from diuresis but very volume overloaded. Prognosis guarded 11/08: Off sedation this am, remains unresponsive only grimace to pain. Hold all sedatives agents for now, patient is off pressors this am. Hypernatremia from today's lab- D5W X1bag, and low K repleted, repeat lab in the am. Severe constipation also noted from KUB, BR added. 11/09: Sudden SPO2 drop in the 60s this am. Patient was manually bagged and deep suctioned. Patient is currently stable on the vent, repeat CXR with no significant change. D/w CCM Mucomyst and brochodilator added. Patient mentation is unchanged, continue to hold off on sedative agents. Neurology consulted. 11/10: Acute DVT noted on bilateral lower extremity Doppler ultrasound therefore she was started on Lovenox treatment dose. Failed SBT. Hypernatremia and hyperchloremia noted, free water flush adjusted. 11/11: Patient noted to be febrile with increasing of the cytosis, UA/BC sent and CXR ordered. ID escalated antibiotics to cefepime. CXR demonstrated mucous plug, bedside bronchoscopy was performed and O ETT was changed over bougie from 6 cm to 7.5. Patient was noted to have a pneumothorax postprocedure and chest tube was placed. Family updated by [facility]. Free water flush increased and will add Jaswant supplementation. 11/12: Patient not noted to follow commands, hypernatremia worsen/persist, increasing free water flush, potassium and magnesium and phosphorus repleted. Hemoglobin noted to be 7.1/24.5 from 7.03/12 yesterday. We will continue to trend and monitor. Vent changes per [facility]. Repeat CXR showed no residual pneumothorax. Consider waterseal tomorrow. Given persistent leukocytosis antibiotics escalated to cefepime per ID. 11/13: Remains on cefepime and vancomycin, vent changes per [facility]. Anemia noted and given 1 unit PRBC. And beta-charleen held in setting of Levophed drip infusing. Remains on fentanyl drip. 11/14: Patient put on CPAP trial by [facility], will continue chest tube until after extubation. Will rest on assist control. CT brain was cancelled by auto radiator mechanic and reordered. 11/15: Patient removed chest tube overnight. Will obtain cxr. remains on low dose levo. CTH completed with no acute findings. RT to place on CPAP. 11/16: Hypernatremia/hyperchloremia noted on the increase of day water flushes. Anemia noted and ordered PRBC. asked RT to place on cpap but not done yet 11/17: Patient remains on the vent, awake and following commands. H&H stable s/p 2units PRBCs. GI on consult, no intervention at this time. Will continue protonix gtt and serial H&H Q6hrs. Keep patient NPO for now, D5w added for hypernatremia and NPO status. Plan for IVC filter placement today by V[facility]. 11/18: Patient is s/p IVC filter. H&H continue to trend down, hbg 6.1 this am, 1 unit of PRBCs ordered. Plan for possible EGD today by GI. Keep patient NPO, continue PPI drip and serial H&H Q6hrs. Electrolytes repleted, repeat lab in the am 11/19: S/p EGD- larger duodenal ulcer noted, see operative note. GI recommendations noted also noted. H&H stable this am. Keep patient on protonix gtt for now. Will keep patient NPO, continue IVF and serial H&H for now. Electrolytes repleted, repeat labs in the am 2/3: Very agitated and restless this am, fentanyl gtt resumed. Patient remains on protonix gtt, H&H remains stable. Will switch protonix gtt to IV BID, continue carafate and okay to resume meds at this time. Will F/u with GI to see if TF can be resumed. Gamble was reinserted overnight for retention. Electrolytes repleted, repeat in the am. Plan for possible PST today for possible extubation per CCM. 11/21: Patient is now on seroquel and patient's home buspar resumed. Patient more calm this morning, fentanyl gtt is off. H&H remains stable and patient is tolerating TF. Patient had a runs of Vtach/PVCs this am, BB added per Cardio. Continue daily PS and wean trial for possible extubation. 11/22: Back on fentanyl gtt overnight , RASS o to -1, following commands. Patient failed PST this am due to increased work of breathing and low SPO2, ABG pending. Patient is also with worsen pitting edema, lasix is still on hold. Will discuss with cardio and CCM to possibly resume lasix. 11/23: MARIA DEL CARMEN overnight. Patient failed PST again this am. Per CCM plan for possible trach and PEG, hold off on IV lasix for now. General surgery consulted and family is aware of possible Trach and PEG. 11/24: Trach/PEG pending this week, continue SBT/SAT as tolerated. No acute events reported overnight. 11/25: Patient was n.p.o. overnight and will remain n.p.o. tonight for trach/PEG tomorrow morning. She failed to support trial again. KUB obtained due to distended belly. 11/26: Patient scheduled for tracheostomy and PEG tube placement today, has been n.p.o. since midnight. No acute events reported overnight. [facility] ordered simethicone scheduled. 11/27: No acute events reported overnight, patient received trach/PEG yesterday. Has been on feedings since last night. Still awaiting LTAC placement. Hospitalist Physical - Physical exam Narrative exam: General appearance: Present: no acute distress, other (On the vent) - EENT Eyes: Present: PERRL, EOM intact ENT: poor dentition - Neck Neck: Present: normal ROM - Respiratory Respiratory effort: normal Respiratory: bilateral: diminished - Cardiovascular Rhythm: regular Heart Sounds: Present: S1 & S2. Absent: systolic murmur, diastolic murmur - Extremities Extremities: no ischemia, pulses intact, pulses symmetrical, normal temperature, normal color Peripheral Pulses: within normal limits - Abdominal General gastrointestinal: soft, non-tender, non-distended, normal bowel sounds - Integumentary Integumentary: Present: warm, dry - Psychiatric Psychiatric: cooperative - Neurologic Neurologic: CNII-XII intact - Allied Health Allied health notes reviewed: nursing, RT, social work - Constitutional Vitals: Temp Pulse Resp BP Pulse Ox 99.2 F 77 14 105/50 100 11/27/21 16:00 11/27/21 17:30 11/27/21 17:30 11/27/21 17:30 11/27/21 15:01 General appearance: Present: no acute distress, other (On the vent) HEART Score - HEART Score Troponin: Troponin T 0.033 ng/mL (0.00-0.029) H 11/05/21 06:11 Results - Labs CBC & Chem 7: 11/27/21 07:40 11/27/21 07:40 Labs: Laboratory Last Values WBC 7.9 K/mm3 (4.5-11.0) 11/27/21 07:40 RBC 3.18 M/mm3 (3.65-5.03) L 11/27/21 07:40 Hgb 8.5 gm/dl (10.1-14.3) L 11/27/21 07:40 Hct 27.0 % (30.3-42.9) L 11/27/21 07:40 MCV 85 fl (79-97) 11/27/21 07:40 MCH 27 pg (28-32) L 11/27/21 07:40 MCHC 32 % (30-34) 11/27/21 07:40 RDW 21.2 % (13.2-15.2) H 11/27/21 07:40 Plt Count 276 K/mm3 (140-440) 11/27/21 07:40 Add Manual Diff Complete 11/16/21 15:25 Total Counted 100 11/16/21 15:25 Seg Neutrophils % Paper Cone Machine Operator 11/06/21 15:50 Seg Neuts % (Manual) 87.0 % (40.0-70.0) H 11/16/21 15:25 Band Neutrophils % 0 % 11/16/21 15:25 Lymphocytes % (Manual) 8.0 % (13.4-35.0) L 11/16/21 15:25 Reactive Lymphs % (Man) 0 % 11/16/21 15:25 Monocytes % (Manual) 5.0 % (0.0-7.3) 11/16/21 15:25 Eosinophils % (Manual) 0 % (0.0-4.3) 11/16/21 15:25 Basophils % (Manual) 0 % (0.0-1.8) 11/16/21 15:25 Metamyelocytes % 0 % 11/16/21 15:25 Myelocytes % 0 % 11/16/21 15:25 Promyelocytes % 0 % 11/16/21 15:25 Blast Cells % 0 % 11/16/21 15:25 Nucleated RBC % Not Reportable 11/16/21 15:25 Seg Neutrophils # Man 15.0 K/mm3 (1.8-7.7) H 11/16/21 15:25 Band Neutrophils # 0.0 K/mm3 11/16/21 15:25 Lymphocytes # (Manual) 1.4 K/mm3 (1.2-5.4) 11/16/21 15:25 Abs React Lymphs (Man) 0.0 K/mm3 11/16/21 15:25 Monocytes # (Manual) 0.9 K/mm3 (0.0-0.8) H 11/16/21 15:25 Eosinophils # (Manual) 0.0 K/mm3 (0.0-0.4) 11/16/21 15:25 Basophils # (Manual) 0.0 K/mm3 (0.0-0.1) 11/16/21 15:25 Metamyelocytes # 0.0 K/mm3 11/16/21 15:25 Myelocytes # 0.0 K/mm3 11/16/21 15:25 Promyelocytes # 0.0 K/mm3 11/16/21 15:25 Blast Cells # 0.0 K/mm3 11/16/21 15:25 WBC Morphology Not Reportable 11/16/21 15:25 Hypersegmented Neuts Not Reportable 11/16/21 15:25 Hyposegmented Neuts Not Reportable 11/16/21 15:25 Hypogranular Neuts Not Reportable 11/16/21 15:25 Smudge Cells Not Reportable 11/16/21 15:25 Toxic Granulation Not Reportable 11/16/21 15:25 Toxic Vacuolation Not Reportable 11/16/21 15:25 Dohle Bodies Not Reportable 11/16/21 15:25 Pelger-Huet Anomaly Not Reportable 11/16/21 15:25 Irina Rods Not Reportable 11/16/21 15:25 Platelet Estimate Consistent w auto 11/16/21 15:25 Clumped Platelets Rare 11/16/21 15:25 Plt Clumps, EDTA Not Reportable 11/16/21 15:25 Large Platelets Not Reportable 11/16/21 15:25 Giant Platelets Not Reportable 11/16/21 15:25 Platelet Satelliting Not Reportable 11/16/21 15:25 Plt Morphology Comment Not Reportable 11/16/21 15:25 RBC Morphology Not Reportable 11/16/21 15:25 Dimorphic RBCs Not Reportable 11/16/21 15:25 Polychromasia Not Reportable 11/16/21 15:25 Hypochromasia 2+ 11/16/21 15:25 Poikilocytosis Not Reportable 11/16/21 15:25 Anisocytosis 2+ 11/16/21 15:25 Microcytosis Not Reportable 11/16/21 15:25 Macrocytosis Not Reportable 11/16/21 15:25 Spherocytes Not Reportable 11/16/21 15:25 Pappenheimer Bodies Not Reportable 11/16/21 15:25 Sickle Cells Not Reportable 11/16/21 15:25 Target Cells 2+ 11/16/21 15:25 Tear Drop Cells Not Reportable 11/16/21 15:25 Ovalocytes Not Reportable 11/16/21 15:25 Helmet Cells Not Reportable 11/16/21 15:25 Odonnell-Harrod Bodies Not Reportable 11/16/21 15:25 [place]atte Rings Not Reportable 11/16/21 15:25 Grayling Cells Not Reportable 11/16/21 15:25 Bite Cells Not Reportable 11/16/21 15:25 Crenated Cell Not Reportable 11/16/21 15:25 Elliptocytes Not Reportable 11/16/21 15:25 Acanthocytes (Spur) Not Reportable 11/16/21 15:25 Rouleaux Not Reportable 11/16/21 15:25 Hemoglobin C Crystals Not Reportable 11/16/21 15:25 Schistocytes Not Reportable 11/16/21 15:25 Malaria parasites Not Reportable 11/16/21 15:25 Godfrey Bodies Not Reportable 11/16/21 15:25 Hem Pathologist Commnt No 11/16/21 15:25 PT 16.9 Sec. (12.2-14.9) H 11/26/21 05:00 INR 1.24 (0.87-1.13) H 11/26/21 05:00 APTT 29.2 Sec. (24.2-36.6) 11/26/21 05:00 D-Dimer 2655.00 ng/mlDDU (0-234) H 11/11/21 04:28 ABG pH 7.449 pH Units (7.350-7.450) 11/21/21 16:00 ABG pCO2 32.1 mm Hg 11/21/21 16:00 ABG pO2 114.2 mm Hg (80.0-90.0) H 11/21/21 16:00 ABG HCO3 21.8 mmol/L (20.0-26.0) 11/21/21 16:00 ABG O2 Saturation 98.3 % (95.0-99.0) 11/21/21 16:00 ABG O2 Content 12.5 (0.0-44) 11/21/21 16:00 ABG Base Excess -1.7 mmol/L (-2.0-3.0) 11/21/21 16:00 ABG Hemoglobin 9.1 gm/dl (12.0-16.0) L 11/21/21 16:00 ABG Carboxyhemoglobin 1.9 % (0.0-5.0) 11/21/21 16:00 ABG Methemoglobin 0.5 % (0.0-1.5) 11/21/21 16:00 Oxyhemoglobin 96.0 % (95.0-99.0) 11/21/21 16:00 FiO2 30 % 11/21/21 16:00 Sodium 139 mmol/L (137-145) 11/27/21 07:40 Potassium 4.4 mmol/L (3.6-5.0) 11/27/21 07:40 Chloride 105.3 mmol/L (98-107) 11/27/21 07:40 Carbon Dioxide 25 mmol/L (22-30) 11/27/21 07:40 Anion Gap 13 mmol/L 11/27/21 07:40 BUN 27 mg/dL (7-17) H 11/27/21 07:40 Creatinine 0.8 mg/dL (0.6-1.2) 11/27/21 07:40 Estimated GFR > 60 ml/min 11/27/21 07:40 BUN/Creatinine Ratio 34 % 11/27/21 07:40 Glucose 112 mg/dL (65-100) H 11/27/21 07:40 POC Glucose 109 mg/dL (70-105) H 11/27/21 12:04 Lactic Acid 3.70 mmol/L (0.7-2.0) H* 11/03/21 22:32 Calcium 7.6 mg/dL (8.4-10.2) L 11/27/21 07:40 Phosphorus 3.00 mg/dL (2.5-4.5) 11/26/21 05:00 Magnesium 1.70 mg/dL (1.7-2.3) 11/26/21 05:00 Ferritin 52.6 ng/mL (10.0-200.0) 11/05/21 06:11 Total Bilirubin 0.50 mg/dL (0.1-1.2) 11/17/21 05:56 Direct Bilirubin < 0.2 mg/dL (0-0.2) 11/11/21 04:28 Indirect Bilirubin 0.1 mg/dL 11/11/21 04:28 AST 36 units/L (5-40) 11/17/21 05:56 ALT 47 units/L (7-56) 11/17/21 05:56 Alkaline Phosphatase 107 units/L (35-129) 11/17/21 05:56 Ammonia 42.0 umol/L (25-60) 11/10/21 14:08 Lactate Dehydrogenase 187 units/L (91-180) H 11/05/21 06:11 Troponin T 0.033 ng/mL (0.00-0.029) H 11/05/21 06:11 C-Reactive Protein 22.20 mg/dL (0.00-1.30) H 11/05/21 06:11 NT-Pro-B Natriuret Pep 7895 pg/mL (0-900) H 11/03/21 22:32 Total Protein 5.1 g/dL (6.3-8.2) L 11/17/21 05:56 Albumin 2.2 g/dL (3.9-5) L 11/17/21 05:56 Albumin/Globulin Ratio 0.8 % 11/17/21 05:56 Triglycerides 66 mg/dL (2-149) 11/03/21 22:32 Cholesterol 80 mg/dL (50-199) 11/03/21 22:32 LDL Cholesterol Direct 34 mg/dL (50-130) L 11/03/21 22:32 HDL Cholesterol 42 mg/dL (40-59) 11/03/21 22:32 Cholesterol/HDL Ratio 1.90 % 11/03/21 22:32 Vitamin B12 1823 pg/mL (211-911) H 11/10/21 14:08 TSH 1.510 mlU/mL (0.270-4.200) 11/10/21 14:08 Urine Color Yellow (Yellow) 11/11/21 09:00 Urine Turbidity Slightly-cloudy (Clear) 11/11/21 09:00 Urine pH 5.0 (5.0-7.0) 11/11/21 09:00 Ur Specific [place] 1.009 (1.003-1.030) 11/11/21 09:00 Urine Protein <15 mg/dl mg/dL (Negative) 11/11/21 09:00 Urine Glucose (UA) Neg mg/dL (Negative) 11/11/21 09:00 Urine Ketones Neg mg/dL (Negative) 11/11/21 09:00 Urine Blood Mod (Negative) 11/11/21 09:00 Urine Nitrite Neg (Negative) 11/11/21 09:00 Urine Bilirubin Neg (Negative) 11/11/21 09:00 Urine Urobilinogen < 2.0 mg/dL (<2.0) 11/11/21 09:00 Ur Leukocyte Esterase Neg (Negative) 11/11/21 09:00 Urine WBC (Auto) < 1.0 /HPF (0.0-6.0) 11/11/21 09:00 Urine RBC (Auto) < 1.0 /HPF (0.0-6.0) 11/11/21 09:00 Coronavirus (PCR) Negative (Negative) 11/10/21 08:30 Blood Type O POSITIVE 11/18/21 10:45 Antibody Screen Negative 11/18/21 10:45 Crossmatch See Detail 11/18/21 10:45 Gamble/IV: Voiding Method Indwelling Catheter Active Medications - Current Medications Current Medications: Generic Name Dose Route Start Last Admin Trade Name Freq PRN Reason Stop Dose Admin Acetaminophen 650 mg 11/04/21 02:03 11/23/21 16:26 Acetaminophen 325 Mg Tab PO 650 mg Q6H PRN Administration Pain MILD(1-3)/Fever >100.5/RODRIGUEZ Hydrocodone Bitart/Acetaminophen 1 each 11/21/21 10:00 11/27/21 14:17 Hydrocodone/Acetaminophen 10-325mg Tab FEEDTUBE 1 each TID YOSSI Administration Lipase/Protease/Amylase 1 each 11/08/21 11:09 Lipase 10,500/Protease 25,000/Amylase 43,750 (Units) Dr Lema FEEDTUBE PRN PRN For Clogged Feeding Tube Buspirone HCl 7.5 mg 11/17/21 22:00 11/27/21 09:12 Buspirone 5 Mg Tab PO 7.5 mg BID YOSSI Administration Dextrose 0 ml 11/10/21 10:52 11/21/21 16:27 Dextrose 10% *Hypoglycemia IV 50 ml PRN PRN Administration Hypoglycemia Fentanyl 1 applic 11/17/21 13:00 11/23/21 09:29 Fentanyl 25 Mcg/Hr Patch 72hr TD 1 applic Q3D YOSSI Administration Fentanyl 25 mcg 11/26/21 14:01 11/26/21 19:56 Fentanyl 100 Mcg/2 Ml Inj IV 11/28/21 14:00 25 mcg Q4H PRN Administration Pain , Severe (7-10) Furosemide 20 mg 11/27/21 14:00 11/27/21 14:17 Furosemide 20 Mg/2 Ml Inj IV 11/29/21 10:01 20 mg QDAY YOSSI Administration Hydrophilic Ointment 1 applic 11/06/21 04:02 Lip Therapy Vaseline TP Q2HR PRN Dry Lips Insulin Human Lispro 0 unit 11/06/21 12:00 11/27/21 14:30 Insulin Lispro 100 Unit/Ml SUB-Q Not Given Q6HR [facility] Protocol Lansoprazole 30 mg 11/24/21 22:00 11/27/21 09:12 Lansoprazole 30 Mg Solutab FEEDTUBE 30 mg BID YOSSI Administration Levothyroxine Sodium 125 mcg 11/05/21 07:00 11/27/21 06:03 Levothyroxine 125 Mcg Tab PO 125 mcg DAILY@0600 YOSSI Administration Magnesium Hydroxide 30 ml 11/04/21 02:03 Magnesium Hydroxide (Mom) Oral Liqd Udc PO Q4H PRN Constipation Metoprolol Tartrate 12.5 mg 11/21/21 10:00 11/27/21 09:12 Metoprolol Tartrate 25 Mg Tab PO 12.5 mg BID YOSSI Administration Multi-Ingred Cream/Lotion/Oil/Oint 1 applic 11/06/21 04:02 Mineral Oil/Petrolatum, White Ophth Oint 3.5 Gm OU Q4HR PRN Dry Eye(s) Ondansetron HCl 4 mg 11/04/21 02:03 11/05/21 15:48 Ondansetron 4 Mg/2 Ml Inj IV 4 mg Q8H PRN Administration Nausea And Vomiting Pravastatin Sodium 20 mg 11/18/21 22:00 11/27/21 00:16 Pravastatin 20 Mg Tab PO 20 mg QHS YOSSI Administration Quetiapine Fumarate 50 mg 11/20/21 22:00 11/27/21 09:11 Quetiapine 25 Mg Tab PO 50 mg BID YOSSI Administration Senna 17.6 mg 11/08/21 22:00 11/27/21 09:11 Sennosides Oral Liqd 8.8 Mg/5 Ml Oral Liqd PO 17.6 mg Q12HR YOSSI Administration Simethicone 160 mg 11/26/21 20:00 11/27/21 14:17 Simethicone 80 Mg Chew Tab PO 11/29/21 14:01 160 mg TID YOSSI Administration Simple Syrup 15 ml 11/08/21 11:09 Simple Syrup 15 Ml FEEDTUBE PRN PRN Hypoglycemia Simple Syrup 30 ml 11/08/21 11:09 Simple Syrup 15 Ml FEEDTUBE PRN PRN Hypoglycemia Sodium Bicarbonate 325 mg 11/08/21 11:09 Sodium Bicarbonate 325 Mg Tab FEEDTUBE PRN PRN For Clogged Feeding Tube Sodium Chloride 10 ml 11/04/21 10:00 11/27/21 09:13 Sodium Chloride 0.9% 10 Ml Flush Syringe IV 10 ml BID YOSSI Administration Sodium Chloride 10 ml 11/04/21 02:03 Sodium Chloride 0.9% 10 Ml Flush Syringe IV PRN PRN LINE FLUSH Sodium Chloride 10 ml 11/10/21 09:57 11/17/21 20:47 Sodium Chloride 0.9% 50 Ml Ivpb IV 10 ml PRN PRN Administration FLUSH Sucralfate 1 gm 11/18/21 16:30 11/27/21 14:30 Sucralfate 1 Gm/10 Ml Oral Liqd PO 1 gm ACHS YOSSI Administration Nutrition/Malnutrition Assess - Dietary Evaluation Nutrition/Malnutrition Findings: Nutrition Notes Start: 11/04/21 17:16 Freq: Status: Active Protocol: Document 11/24/21 14:48 [facility] (Rec: 11/24/21 14:56 [facility] [id number]) Nutrition Notes Initial or Follow up Reassessment Current Diagnosis Diabetes,Hypertension,Heart Failure,Respiratory Failure Other Pertinent Diagnosis Bilat pneu, (R) pneumothorax, Septic shock Current Diet TF - Glucerna 1.2 at 42ml/hr Labs/Tests Reviewed Pertinent Medications Sucralfate Height 5 ft Weight 62.4 kg [place] Body Weight (kg) 45.45 BMI 26.9 Weight Status Appropriate Subjective/Other Information Observed TF infusing at goal rate. Pt remains on vent support. Trach/PEG placement pending. Percent of energy/protein needs met: 100% energy 81% pro Burn Absent Trauma Absent #1 Nutrition Diagnosis Inadequate oral intake Diagnosis Progress(for reassessment Continues documentation) Is patient on ventilator? Yes Is Patient Ambulatory and/or Out of Bed No REE-([facility]-confined to bed) [phone] Calculation Used for Recommendations [facility] Additional Notes Pro needs 1.2-2 g/k-125g/ day Fluid needs 1ml/kcal Nutrition Intervention Nutrition Support: Continue Glucerna 1.2 at 42ml/ hr with 75ml water flush q4h. Kcal 1,210 Protein (gm) 60 Carbohydrates (gm) 115 Fat (gm) 60 Fluid (mL) 811 Fiber (gm) 16 Goal #1 TF tolerance Goal #2 TF to meet at least 75% energy and pro needs Follow-Up By: 12/01/21 Additional Comments F/U: stable TF, trach/PEG placement, vent status, wt
[2021-11-28] MEDS: fentaNYL 100 MCG/2 ML INJ IV PRN (05:37)
[2021-11-28] MEDS: LEVOTHYROXINE 125 MCG TAB PO SCH (05:39)
[2021-11-28] MEDS: INSULIN LISPRO 100 UNIT/ML SUB-Q SCH ×3 (08:10→18:28)
[2021-11-28] MEDS: SENNOSIDES ORAL LIQD 8.8 MG/5 ML ORAL LIQD PO SCH ×2 (09:19→21:32)
[2021-11-28] MEDS: busPIRone 5 MG TAB PO SCH ×2 (09:19→21:33)
[2021-11-28] MEDS: SUCRALFATE 1 GM/10 ML ORAL LIQD PO SCH ×4 (09:19→21:32)
[2021-11-28] MEDS: FUROSEMIDE 20 MG/2 ML INJ IV SCH (09:19)
[2021-11-28] MEDS: HYDROcodone/ACETAMINOPHEN 10-325MG TAB FEEDTUBE SCH ×3 (09:19→21:32)
[2021-11-28] MEDS: LANSOPRAZOLE 30 MG SOLUTAB FEEDTUBE SCH ×2 (09:20→21:34)
[2021-11-28] MEDS: METOPROLOL TARTRATE 25 MG TAB PO SCH ×2 (09:20→21:34)
[2021-11-28] MEDS: QUEtiapine 25 MG TAB PO SCH ×2 (09:20→21:34)
[2021-11-28] MEDS: SIMETHICONE 80 MG CHEW TAB PO SCH ×3 (09:21→21:33)
--- NOTE | 2021-11-28 12:27 | Progress Note ---
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 - complete Lasix dosing - ABG after 2 hours on SBT when she tolerates - continue daily SAT and SBT assessment as tolerated meanwhile - LTAC evaluation ongoing - no new issues otherwise, continue care as below; - prn Levophed for target MAP > 65 mmHg - continue to wean supplemental oxygen for target O2 sat's > 90% acutely - VAP bundle addressed - continue lung protective strategies - continue bronchodilators with routine trach care and pulmonary hygiene per RT - wean per pulmonary driven protocols otherwise - avoid nephrotoxins, renally dose all medications - continue accuchecks with glycemic control per SSI (While critically ill target blood glucose of 140-180 mg/dL; avoid hypoglycemia) - sedation prn for target RASS 0 to -1 - antibiotics per ID recommendations - continue to avoid benzodiazepine's, reduce the possibility of delirium - prn analgesia per CPOT score - Maintenance of sleep-wake cycle, avoid delirium - continue enteral nutritional support at goal rate as tolerated - G.I. & VTE prophylaxis - PT/OT/ROM exercises - continue mobility protocols for pressure ulcer prophylaxis - Monitor hemodynamics closely - continue other care per attending / other consultants - discharge planning ongoing concurrently COVID SPECIFIC INTERVENTIONS - COVID-19 PCR negative .... Re-evaluate in am & prn CONDITION: CRITICAL PROGNOSIS: GUARDED CODE STATUS: FULL CODE The high probability of a clinically significant, sudden or life-threatening deterioration of the [respiratory, cardiovascular & neurologic] system(s) required my full and direct attention, intervention and personal management. The aggregate critical care time was [31] minutes without overlap. Time includes spent on; [x] Data Review and interpretation [x] Patient assessment and monitoring of vital signs [x] Documentation [x] Medication orders and management Subjective Date of service: 11/28/21 Principal diagnosis: Septic shock; AHRF; Anemia; Pneumonia; L. pleural effusion; HFrEF; Pulm HTN Interval history: Patient is seen today for: Septic shock; Acute hypoxemic respiratory failure; Anemia; Bilateral pneumonia; Left pleural effusion; HFrEF 30-35%; Pulm HTN RVSP 49 Seen and examined at bedside; 24hour events reviewed; nursing and respiratory care staff consulted; no adverse overnight events reported to me; resting in bed; remains on MVS; failed bedside SBT quickly; tolerating tube feeds; no N/V/F /C Objective Vital Signs - 12hr 11/28/21 11/28/21 11/28/21 00:30 00:45 01:00 Temperature Pulse Rate 67 68 70 Pulse Rate [ From Monitor] Respiratory 14 14 14 Rate Blood Pressure 98/45 98/45 100/43 O2 Sat by Pulse 100 100 100 Oximetry 11/28/21 11/28/21 11/28/21 01:15 01:30 01:45 Temperature Pulse Rate 69 68 69 Pulse Rate [ From Monitor] Respiratory 14 14 14 Rate Blood Pressure 100/43 97/44 97/44 O2 Sat by Pulse 100 98 Oximetry 11/28/21 11/28/21 11/28/21 02:00 02:15 02:30 Temperature Pulse Rate 73 74 74 Pulse Rate [ From Monitor] Respiratory 14 14 14 Rate Blood Pressure 104/46 104/46 105/46 O2 Sat by Pulse Oximetry 11/28/21 11/28/21 11/28/21 02:45 03:00 03:15 Temperature Pulse Rate 71 75 72 Pulse Rate [ From Monitor] Respiratory 14 14 14 Rate Blood Pressure 105/46 110/51 110/51 O2 Sat by Pulse Oximetry 11/28/21 11/28/21 11/28/21 03:30 03:45 04:00 Temperature 98.6 F Pulse Rate 75 73 74 Pulse Rate [ 74 From Monitor] Respiratory 13 14 14 Rate Blood Pressure 109/51 109/51 105/48 O2 Sat by Pulse 100 Oximetry 11/28/21 11/28/21 11/28/21 04:15 04:30 04:45 Temperature Pulse Rate 75 74 76 Pulse Rate [ From Monitor] Respiratory 14 14 15 Rate Blood Pressure 105/48 107/47 107/47 O2 Sat by Pulse Oximetry 11/28/21 11/28/21 11/28/21 05:00 05:15 05:31 Temperature Pulse Rate 77 79 87 Pulse Rate [ From Monitor] Respiratory 14 18 25 H Rate Blood Pressure 114/54 114/54 121/58 O2 Sat by Pulse Oximetry 11/28/21 11/28/21 11/28/21 05:45 06:00 06:15 Temperature Pulse Rate 79 76 74 Pulse Rate [ From Monitor] Respiratory 14 14 14 Rate Blood Pressure 121/58 100/39 100/39 O2 Sat by Pulse Oximetry 11/28/21 11/28/21 11/28/21 06:30 06:45 07:00 Temperature Pulse Rate 76 78 79 Pulse Rate [ From Monitor] Respiratory 14 14 15 Rate Blood Pressure 103/43 103/43 109/84 O2 Sat by Pulse Oximetry 11/28/21 11/28/21 11/28/21 07:15 07:30 07:45 Temperature Pulse Rate 74 78 76 Pulse Rate [ From Monitor] Respiratory 14 14 14 Rate Blood Pressure 109/84 108/48 108/48 O2 Sat by Pulse Oximetry 11/28/21 11/28/21 11/28/21 08:00 08:09 08:14 Temperature 98.6 F Pulse Rate 82 78 82 Pulse Rate [ From Monitor] Respiratory 15 13 Rate Blood Pressure 101/43 101/43 101/43 O2 Sat by Pulse 99 100 100 Oximetry 11/28/21 11/28/21 11/28/21 08:15 08:30 08:45 Temperature Pulse Rate 82 84 85 Pulse Rate [ From Monitor] Respiratory 16 15 22 Rate Blood Pressure 101/43 116/53 116/53 O2 Sat by Pulse 100 100 97 Oximetry 11/28/21 11/28/21 11/28/21 09:00 09:15 09:20 Temperature Pulse Rate 85 89 89 Pulse Rate [ From Monitor] Respiratory 17 20 Rate Blood Pressure 124/54 124/54 124/54 O2 Sat by Pulse Oximetry 11/28/21 11/28/21 11/28/21 09:30 09:45 10:00 Temperature Pulse Rate 88 84 81 Pulse Rate [ From Monitor] Respiratory 18 18 Rate Blood Pressure 127/53 127/53 127/53 O2 Sat by Pulse Oximetry 11/28/21 11/28/21 11/28/21 10:15 10:30 10:38 Temperature Pulse Rate 77 76 80 Pulse Rate [ From Monitor] Respiratory 19 18 23 Rate Blood Pressure 114/47 107/41 107/41 O2 Sat by Pulse 100 Oximetry 11/28/21 11/28/21 10:45 11:00 Temperature Pulse Rate 78 79 Pulse Rate [ From Monitor] Respiratory 17 15 Rate Blood Pressure 107/41 116/47 O2 Sat by Pulse 100 100 Oximetry Constitutional: appears uncomfortable, other (ETT to MVS, frail elderly woman with mildly increased respiratory effort at rest) Eyes: non-icteric ENT: oropharynx moist, oropharyngeal exudate pre (clear frothy), other (+ Midline tracheostomy) Neck: supple, no lymphadenopathy, no JVD Effort: mildly labored Ascultation: Bilateral: diminished breath sounds, rhonchi Percussion: Bilateral: not dull Cardiovascular: regular rate and rhythm, other (S1,S2) Gastrointestinal: normoactive bowel sounds, soft, non-tender, non-distended (protuberant) Integumentary: normal Extremities: no cyanosis, pink and warm, pulses normal, edema (upper etremities) Neurologic: non-focal exam (grossly), pupils equal and round, CN II-XII normal, other (sedated) Psychiatric: mood appropriate, affect normal CBC and BMP: 11/27/21 07:40 11/27/21 07:40 ABG, PT/INR, D-dimer: ABG ABG pH 7.449 pH Units (7.350-7.450) 11/21/21 16:00 ABG pCO2 32.1 mm Hg 11/21/21 16:00 ABG pO2 114.2 mm Hg (80.0-90.0) H 11/21/21 16:00 ABG O2 Saturation 98.3 % (95.0-99.0) 11/21/21 16:00 PT/INR, D-dimer PT 16.9 Sec. (12.2-14.9) H 11/26/21 05:00 INR 1.24 (0.87-1.13) H 11/26/21 05:00 D-Dimer 2655.00 ng/mlDDU (0-234) H 11/11/21 04:28 Abnormal lab findings: Abnormal Labs 11/03/21 11/03/21 11/03/21 22:32 22:32 22:32 WBC 29.3 H RBC 2.93 L Hgb 6.1 L Hct 21.9 L MCV 75 L MCH 21 L MCHC 28 L RDW 19.7 H Plt Count Seg Neuts % (Manual) 97.0 H Lymphocytes % (Manual) 3.0 L Seg Neutrophils # Man 28.4 H Lymphocytes # (Manual) 0.9 L Monocytes # (Manual) PT 18.6 H INR 1.40 H D-Dimer ABG pH ABG pO2 ABG HCO3 ABG O2 Saturation ABG Base Excess ABG Hemoglobin Oxyhemoglobin Sodium Potassium Chloride Carbon Dioxide 20 L BUN 33 H Glucose 119 H POC Glucose Lactic Acid Calcium 8.3 L Phosphorus Magnesium AST ALT Alkaline Phosphatase Lactate Dehydrogenase Troponin T 0.035 H C-Reactive Protein NT-Pro-B Natriuret Pep Total Protein Albumin LDL Cholesterol Direct 34 L Vitamin B12 Crossmatch 11/03/21 11/03/21 11/03/21 22:32 22:32 23:57 WBC RBC Hgb Hct MCV MCH MCHC RDW Plt Count Seg Neuts % (Manual) Lymphocytes % (Manual) Seg Neutrophils # Man Lymphocytes # (Manual) Monocytes # (Manual) PT INR D-Dimer ABG pH ABG pO2 ABG HCO3 ABG O2 Saturation ABG Base Excess ABG Hemoglobin Oxyhemoglobin Sodium Potassium Chloride Carbon Dioxide BUN Glucose POC Glucose Lactic Acid 3.70 H* Calcium Phosphorus Magnesium AST ALT Alkaline Phosphatase 139 H Lactate Dehydrogenase Troponin T C-Reactive Protein NT-Pro-B Natriuret Pep 7895 H Total Protein Albumin 3.5 L LDL Cholesterol Direct Vitamin B12 Crossmatch See Detail 11/04/21 11/04/21 11/05/21 00:59 13:58 00:51 WBC 27.9 H RBC 3.28 L Hgb 7.3 L Hct 25.5 L MCV 78 L MCH 22 L MCHC 29 L RDW 19.1 H Plt Count Seg Neuts % (Manual) 96.0 H Lymphocytes % (Manual) 2.0 L Seg Neutrophils # Man 26.8 H Lymphocytes # (Manual) 0.6 L Monocytes # (Manual) PT INR D-Dimer ABG pH ABG pO2 ABG HCO3 ABG O2 Saturation ABG Base Excess ABG Hemoglobin Oxyhemoglobin Sodium Potassium Chloride Carbon Dioxide BUN Glucose POC Glucose Lactic Acid Calcium Phosphorus Magnesium AST ALT Alkaline Phosphatase Lactate Dehydrogenase Troponin T 0.051 H D 0.032 H D C-Reactive Protein NT-Pro-B Natriuret Pep Total Protein Albumin LDL Cholesterol Direct Vitamin B12 Crossmatch 11/05/21 11/05/21 11/05/21 06:11 06:11 06:11 WBC 31.8 H RBC 3.57 L Hgb 8.0 L Hct 27.7 L MCV 78 L MCH 22 L MCHC 29 L RDW 19.2 H Plt Count Seg Neuts % (Manual) 91.0 H Lymphocytes % (Manual) 4.5 L Seg Neutrophils # Man 28.9 H Lymphocytes # (Manual) Monocytes # (Manual) 1.1 H PT INR D-Dimer 1494.53 H ABG pH ABG pO2 ABG HCO3 ABG O2 Saturation ABG Base Excess ABG Hemoglobin Oxyhemoglobin Sodium Potassium Chloride Carbon Dioxide 19 L BUN 42 H Glucose 115 H POC Glucose Lactic Acid Calcium Phosphorus Magnesium AST 43 H ALT Alkaline Phosphatase Lactate Dehydrogenase 187 H Troponin T C-Reactive Protein 22.20 H NT-Pro-B Natriuret Pep Total Protein 6.0 L Albumin 3.2 L LDL Cholesterol Direct Vitamin B12 Crossmatch 11/05/21 11/05/21 11/06/21 06:11 12:15 00:30 WBC RBC Hgb Hct MCV MCH MCHC RDW Plt Count Seg Neuts % (Manual) Lymphocytes % (Manual) Seg Neutrophils # Man Lymphocytes # (Manual) Monocytes # (Manual) PT INR D-Dimer ABG pH ABG pO2 ABG HCO3 ABG O2 Saturation ABG Base Excess ABG Hemoglobin Oxyhemoglobin Sodium Potassium Chloride Carbon Dioxide BUN Glucose POC Glucose 113 H 69 L Lactic Acid Calcium Phosphorus Magnesium AST ALT Alkaline Phosphatase Lactate Dehydrogenase Troponin T 0.033 H C-Reactive Protein NT-Pro-B Natriuret Pep Total Protein Albumin LDL Cholesterol Direct Vitamin B12 Crossmatch 11/06/21 11/06/21 11/06/21 05:50 15:50 15:50 WBC 25.5 H RBC 3.62 L Hgb 8.0 L Hct 27.5 L MCV 76 L MCH 22 L MCHC 29 L RDW 19.6 H Plt Count Seg Neuts % (Manual) 92.0 H Lymphocytes % (Manual) 5.0 L Seg Neutrophils # Man 23.5 H Lymphocytes # (Manual) Monocytes # (Manual) PT INR D-Dimer ABG pH 7.305 L ABG pO2 ABG HCO3 15.8 L ABG O2 Saturation ABG Base Excess -9.6 L ABG Hemoglobin 8.6 L Oxyhemoglobin 94.6 L Sodium Potassium Chloride 113.9 H Carbon Dioxide 17 L BUN 56 H Glucose 114 H POC Glucose Lactic Acid Calcium 7.9 L Phosphorus Magnesium AST 1410 H ALT 934 H Alkaline Phosphatase 142 H Lactate Dehydrogenase Troponin T C-Reactive Protein NT-Pro-B Natriuret Pep Total Protein 5.0 L Albumin 2.6 L LDL Cholesterol Direct Vitamin B12 Crossmatch 11/07/21 11/07/21 11/07/21 03:30 04:50 08:07 WBC RBC Hgb Hct MCV MCH MCHC RDW Plt Count Seg Neuts % (Manual) Lymphocytes % (Manual) Seg Neutrophils # Man Lymphocytes # (Manual) Monocytes # (Manual) PT INR D-Dimer ABG pH ABG pO2 296.9 H ABG HCO3 18.1 L ABG O2 Saturation 99.5 H ABG Base Excess -5.9 L ABG Hemoglobin 7.6 L Oxyhemoglobin Sodium Potassium Chloride Carbon Dioxide BUN Glucose POC Glucose 106 H 108 H Lactic Acid Calcium Phosphorus Magnesium AST ALT Alkaline Phosphatase Lactate Dehydrogenase Troponin T C-Reactive Protein NT-Pro-B Natriuret Pep Total Protein Albumin LDL Cholesterol Direct Vitamin B12 Crossmatch 11/08/21 11/08/21 11/08/21 03:10 18:05 23:43 WBC RBC Hgb Hct MCV MCH MCHC RDW Plt Count Seg Neuts % (Manual) Lymphocytes % (Manual) Seg Neutrophils # Man Lymphocytes # (Manual) Monocytes # (Manual) PT INR D-Dimer ABG pH ABG pO2 127.4 H ABG HCO3 ABG O2 Saturation ABG Base Excess -3.4 L ABG Hemoglobin 7.4 L Oxyhemoglobin Sodium Potassium Chloride Carbon Dioxide BUN Glucose POC Glucose 113 H 141 H Lactic Acid Calcium Phosphorus Magnesium AST ALT Alkaline Phosphatase Lactate Dehydrogenase Troponin T C-Reactive Protein NT-Pro-B Natriuret Pep Total Protein Albumin LDL Cholesterol Direct Vitamin B12 Crossmatch 11/08/21 11/08/21 11/09/21 Unknown Unknown 02:00 WBC 14.5 H RBC 3.35 L Hgb 7.5 L 8.1 L Hct 25.4 L 27.6 L MCV 76 L 76 L MCH 23 L 22 L MCHC RDW 19.9 H 19.9 H Plt Count Seg Neuts % (Manual) Lymphocytes % (Manual) Seg Neutrophils # Man Lymphocytes # (Manual) Monocytes # (Manual) PT INR D-Dimer ABG pH ABG pO2 ABG HCO3 ABG O2 Saturation ABG Base Excess ABG Hemoglobin Oxyhemoglobin Sodium 154 H D Potassium 3.3 L Chloride 120.7 H Carbon Dioxide 20 L BUN 38 H Glucose POC Glucose Lactic Acid Calcium 8.3 L Phosphorus Magnesium AST ALT Alkaline Phosphatase Lactate Dehydrogenase Troponin T C-Reactive Protein NT-Pro-B Natriuret Pep Total Protein Albumin LDL Cholesterol Direct Vitamin B12 Crossmatch 11/09/21 11/09/21 11/09/21 02:00 02:31 05:12 WBC RBC Hgb Hct MCV MCH MCHC RDW Plt Count Seg Neuts % (Manual) Lymphocytes % (Manual) Seg Neutrophils # Man Lymphocytes # (Manual) Monocytes # (Manual) PT INR D-Dimer ABG pH 7.479 H ABG pO2 121.3 H ABG HCO3 ABG O2 Saturation ABG Base Excess ABG Hemoglobin 7.3 L Oxyhemoglobin Sodium Potassium Chloride 112.5 H Carbon Dioxide BUN 33 H Glucose 161 H POC Glucose 135 H Lactic Acid Calcium Phosphorus Magnesium AST 251 H ALT 481 H Alkaline Phosphatase Lactate Dehydrogenase Troponin T C-Reactive Protein NT-Pro-B Natriuret Pep Total Protein 5.0 L Albumin 2.8 L LDL Cholesterol Direct Vitamin B12 Crossmatch 11/09/21 11/09/21 11/09/21 11:33 16:32 23:28 WBC RBC Hgb Hct MCV MCH MCHC RDW Plt Count Seg Neuts % (Manual) Lymphocytes % (Manual) Seg Neutrophils # Man Lymphocytes # (Manual) Monocytes # (Manual) PT INR D-Dimer ABG pH ABG pO2 ABG HCO3 ABG O2 Saturation ABG Base Excess ABG Hemoglobin Oxyhemoglobin Sodium Potassium Chloride Carbon Dioxide BUN Glucose POC Glucose 132 H 133 H 143 H Lactic Acid Calcium Phosphorus Magnesium AST ALT Alkaline Phosphatase Lactate Dehydrogenase Troponin T C-Reactive Protein NT-Pro-B Natriuret Pep Total Protein Albumin LDL Cholesterol Direct Vitamin B12 Crossmatch 11/10/21 11/10/21 11/10/21 04:00 04:00 05:35 WBC 16.0 H RBC 3.61 L Hgb 8.0 L Hct 27.1 L MCV 75 L MCH 22 L MCHC RDW 20.4 H Plt Count Seg Neuts % (Manual) Lymphocytes % (Manual) Seg Neutrophils # Man Lymphocytes # (Manual) Monocytes # (Manual) PT INR D-Dimer ABG pH ABG pO2 ABG HCO3 ABG O2 Saturation ABG Base Excess ABG Hemoglobin Oxyhemoglobin Sodium 149 H Potassium Chloride 114.1 H Carbon Dioxide BUN 31 H Glucose 148 H POC Glucose 132 H Lactic Acid Calcium 8.2 L Phosphorus Magnesium AST ALT Alkaline Phosphatase Lactate Dehydrogenase Troponin T C-Reactive Protein NT-Pro-B Natriuret Pep Total Protein Albumin LDL Cholesterol Direct Vitamin B12 Crossmatch 11/10/21 11/10/21 11/10/21 11:31 14:08 15:35 WBC RBC Hgb Hct MCV MCH MCHC RDW Plt Count Seg Neuts % (Manual) Lymphocytes % (Manual) Seg Neutrophils # Man Lymphocytes # (Manual) Monocytes # (Manual) PT INR D-Dimer ABG pH ABG pO2 126.6 H ABG HCO3 ABG O2 Saturation ABG Base Excess ABG Hemoglobin 7.4 L Oxyhemoglobin Sodium Potassium Chloride Carbon Dioxide BUN Glucose POC Glucose 147 H Lactic Acid Calcium Phosphorus Magnesium AST ALT Alkaline Phosphatase Lactate Dehydrogenase Troponin T C-Reactive Protein NT-Pro-B Natriuret Pep Total Protein Albumin LDL Cholesterol Direct Vitamin B12 1823 H Crossmatch 11/10/21 11/11/21 11/11/21 17:53 00:55 04:28 WBC RBC Hgb Hct MCV MCH MCHC RDW Plt Count Seg Neuts % (Manual) Lymphocytes % (Manual) Seg Neutrophils # Man Lymphocytes # (Manual) Monocytes # (Manual) PT INR D-Dimer ABG pH ABG pO2 ABG HCO3 ABG O2 Saturation ABG Base Excess ABG Hemoglobin Oxyhemoglobin Sodium 149 H Potassium Chloride 112.2 H Carbon Dioxide BUN 34 H Glucose 148 H POC Glucose 140 H 145 H Lactic Acid Calcium 7.9 L Phosphorus Magnesium AST 53 H ALT 203 H Alkaline Phosphatase Lactate Dehydrogenase Troponin T C-Reactive Protein NT-Pro-B Natriuret Pep Total Protein 4.9 L Albumin 2.6 L LDL Cholesterol Direct Vitamin B12 Crossmatch 11/11/21 11/11/21 11/11/21 04:28 04:28 05:28 WBC 20.9 H RBC 3.47 L Hgb 7.5 L Hct 26.0 L MCV 75 L MCH 22 L MCHC 29 L RDW 21.6 H Plt Count 132 L Seg Neuts % (Manual) Lymphocytes % (Manual) Seg Neutrophils # Man Lymphocytes # (Manual) Monocytes # (Manual) PT INR D-Dimer 2655.00 H ABG pH ABG pO2 ABG HCO3 ABG O2 Saturation ABG Base Excess ABG Hemoglobin Oxyhemoglobin Sodium Potassium Chloride Carbon Dioxide BUN Glucose POC Glucose 154 H Lactic Acid Calcium Phosphorus Magnesium AST ALT Alkaline Phosphatase Lactate Dehydrogenase Troponin T C-Reactive Protein NT-Pro-B Natriuret Pep Total Protein Albumin LDL Cholesterol Direct Vitamin B12 Crossmatch 01/11/11/21 11/12/21 12:38 18:13 00:14 WBC RBC Hgb Hct MCV MCH MCHC RDW Plt Count Seg Neuts % (Manual) Lymphocytes % (Manual) Seg Neutrophils # Man Lymphocytes # (Manual) Monocytes # (Manual) PT INR D-Dimer ABG pH ABG pO2 ABG HCO3 ABG O2 Saturation ABG Base Excess ABG Hemoglobin Oxyhemoglobin Sodium Potassium Chloride Carbon Dioxide BUN Glucose POC Glucose 137 H 108 H 137 H Lactic Acid Calcium Phosphorus Magnesium AST ALT Alkaline Phosphatase Lactate Dehydrogenase Troponin T C-Reactive Protein NT-Pro-B Natriuret Pep Total Protein Albumin LDL Cholesterol Direct Vitamin B12 Crossmatch 11/12/21 11/12/21 11/12/21 05:40 06:24 11:12 WBC RBC Hgb Hct MCV MCH MCHC RDW Plt Count Seg Neuts % (Manual) Lymphocytes % (Manual) Seg Neutrophils # Man Lymphocytes # (Manual) Monocytes # (Manual) PT INR D-Dimer ABG pH 7.586 H ABG pO2 150.6 H ABG HCO3 27.2 H ABG O2 Saturation 99.1 H ABG Base Excess 5.2 H ABG Hemoglobin 7.5 L Oxyhemoglobin Sodium Potassium Chloride Carbon Dioxide BUN Glucose POC Glucose 132 H 140 H Lactic Acid Calcium Phosphorus Magnesium AST ALT Alkaline Phosphatase Lactate Dehydrogenase Troponin T C-Reactive Protein NT-Pro-B Natriuret Pep Total Protein Albumin LDL Cholesterol Direct Vitamin B12 Crossmatch 11/12/21 11/12/21 11/12/21 14:50 14:50 17:13 WBC 19.8 H RBC 3.27 L Hgb 7.1 L Hct 24.5 L MCV 75 L MCH 22 L MCHC 29 L RDW 22.3 H Plt Count Seg Neuts % (Manual) Lymphocytes % (Manual) Seg Neutrophils # Man Lymphocytes # (Manual) Monocytes # (Manual) PT INR D-Dimer ABG pH ABG pO2 ABG HCO3 ABG O2 Saturation ABG Base Excess ABG Hemoglobin Oxyhemoglobin Sodium 150 H Potassium 3.3 L Chloride 112.0 H Carbon Dioxide BUN 40 H Glucose 151 H POC Glucose 121 H Lactic Acid Calcium 7.4 L Phosphorus 1.70 L Magnesium 1.40 L AST ALT Alkaline Phosphatase Lactate Dehydrogenase Troponin T C-Reactive Protein NT-Pro-B Natriuret Pep Total Protein Albumin LDL Cholesterol Direct Vitamin B12 Crossmatch 01/11/13/21 11/13/21 23:19 05:34 06:30 WBC RBC Hgb Hct MCV MCH MCHC RDW Plt Count Seg Neuts % (Manual) Lymphocytes % (Manual) Seg Neutrophils # Man Lymphocytes # (Manual) Monocytes # (Manual) PT INR D-Dimer ABG pH ABG pO2 ABG HCO3 ABG O2 Saturation ABG Base Excess ABG Hemoglobin Oxyhemoglobin Sodium 149 H Potassium Chloride 60.0 L Carbon Dioxide BUN 40 H Glucose 146 H POC Glucose 113 H 132 H Lactic Acid Calcium 7.3 L Phosphorus Magnesium 2.40 H AST ALT 72 H Alkaline Phosphatase Lactate Dehydrogenase Troponin T C-Reactive Protein NT-Pro-B Natriuret Pep Total Protein 5.2 L Albumin 2.2 L LDL Cholesterol Direct Vitamin B12 Crossmatch 11/13/21 11/13/21 11/13/21 06:30 08:30 11:19 WBC 21.2 H RBC 3.12 L Hgb 6.8 L Hct 23.2 L MCV 74 L MCH 22 L MCHC 29 L RDW 22.2 H Plt Count 135 L Seg Neuts % (Manual) Lymphocytes % (Manual) Seg Neutrophils # Man Lymphocytes # (Manual) Monocytes # (Manual) PT INR D-Dimer ABG pH ABG pO2 ABG HCO3 ABG O2 Saturation ABG Base Excess ABG Hemoglobin Oxyhemoglobin Sodium Potassium Chloride Carbon Dioxide BUN Glucose POC Glucose 136 H Lactic Acid Calcium Phosphorus Magnesium AST ALT Alkaline Phosphatase Lactate Dehydrogenase Troponin T C-Reactive Protein NT-Pro-B Natriuret Pep Total Protein Albumin LDL Cholesterol Direct Vitamin B12 Crossmatch See Detail 11/13/21 11/14/21 11/14/21 18:21 00:01 04:46 WBC 20.0 H RBC 3.41 L Hgb 7.9 L Hct 26.8 L MCV MCH 23 L MCHC 29 L RDW 24.0 H Plt Count Seg Neuts % (Manual) Lymphocytes % (Manual) Seg Neutrophils # Man Lymphocytes # (Manual) Monocytes # (Manual) PT INR D-Dimer ABG pH ABG pO2 ABG HCO3 ABG O2 Saturation ABG Base Excess ABG Hemoglobin Oxyhemoglobin Sodium Potassium Chloride Carbon Dioxide BUN Glucose POC Glucose 149 H 141 H Lactic Acid Calcium Phosphorus Magnesium AST ALT Alkaline Phosphatase Lactate Dehydrogenase Troponin T C-Reactive Protein NT-Pro-B Natriuret Pep Total Protein Albumin LDL Cholesterol Direct Vitamin B12 Crossmatch 11/14/21 11/14/21 11/14/21 04:46 05:10 11:10 WBC RBC Hgb Hct MCV MCH MCHC RDW Plt Count Seg Neuts % (Manual) Lymphocytes % (Manual) Seg Neutrophils # Man Lymphocytes # (Manual) Monocytes # (Manual) PT INR D-Dimer ABG pH ABG pO2 ABG HCO3 ABG O2 Saturation ABG Base Excess ABG Hemoglobin Oxyhemoglobin Sodium 148 H Potassium Chloride 113.1 H Carbon Dioxide BUN 43 H Glucose 140 H POC Glucose 132 H 133 H Lactic Acid Calcium 7.5 L Phosphorus Magnesium AST ALT Alkaline Phosphatase Lactate Dehydrogenase Troponin T C-Reactive Protein NT-Pro-B Natriuret Pep Total Protein Albumin LDL Cholesterol Direct Vitamin B12 Crossmatch 11/14/21 11/14/21 11/14/21 16:14 17:48 23:23 WBC RBC Hgb Hct MCV MCH MCHC RDW Plt Count Seg Neuts % (Manual) Lymphocytes % (Manual) Seg Neutrophils # Man Lymphocytes # (Manual) Monocytes # (Manual) PT INR D-Dimer ABG pH ABG pO2 ABG HCO3 28.0 H ABG O2 Saturation ABG Base Excess 3.1 H ABG Hemoglobin 5.8 L Oxyhemoglobin 94.8 L Sodium Potassium Chloride Carbon Dioxide BUN Glucose POC Glucose 130 H 136 H Lactic Acid Calcium Phosphorus Magnesium AST ALT Alkaline Phosphatase Lactate Dehydrogenase Troponin T C-Reactive Protein NT-Pro-B Natriuret Pep Total Protein Albumin LDL Cholesterol Direct Vitamin B12 Crossmatch 11/15/21 11/15/21 11/15/21 05:20 05:50 05:50 WBC 19.9 H RBC 3.50 L Hgb 8.2 L Hct 27.9 L MCV MCH 23 L MCHC 29 L RDW 24.9 H Plt Count Seg Neuts % (Manual) Lymphocytes % (Manual) Seg Neutrophils # Man Lymphocytes # (Manual) Monocytes # (Manual) PT INR D-Dimer ABG pH ABG pO2 ABG HCO3 ABG O2 Saturation ABG Base Excess ABG Hemoglobin Oxyhemoglobin Sodium 149 H Potassium Chloride 112.0 H Carbon Dioxide BUN 48 H Glucose 152 H POC Glucose 137 H Lactic Acid Calcium 7.9 L Phosphorus Magnesium AST ALT Alkaline Phosphatase Lactate Dehydrogenase Troponin T C-Reactive Protein NT-Pro-B Natriuret Pep Total Protein Albumin LDL Cholesterol Direct Vitamin B12 Crossmatch 11/15/21 11/15/21 11/15/21 12:12 17:07 23:24 WBC RBC Hgb Hct MCV MCH MCHC RDW Plt Count Seg Neuts % (Manual) Lymphocytes % (Manual) Seg Neutrophils # Man Lymphocytes # (Manual) Monocytes # (Manual) PT INR D-Dimer ABG pH ABG pO2 ABG HCO3 ABG O2 Saturation ABG Base Excess ABG Hemoglobin Oxyhemoglobin Sodium Potassium Chloride Carbon Dioxide BUN Glucose POC Glucose 114 H 135 H 123 H Lactic Acid Calcium Phosphorus Magnesium AST ALT Alkaline Phosphatase Lactate Dehydrogenase Troponin T C-Reactive Protein NT-Pro-B Natriuret Pep Total Protein Albumin LDL Cholesterol Direct Vitamin B12 Crossmatch 11/16/21 11/16/21 11/16/21 05:21 10:00 10:00 WBC 21.7 H RBC 2.57 L Hgb 6.0 L Hct 20.2 L D MCV MCH 24 L MCHC RDW 26.3 H Plt Count Seg Neuts % (Manual) Lymphocytes % (Manual) Seg Neutrophils # Man Lymphocytes # (Manual) Monocytes # (Manual) PT INR D-Dimer ABG pH ABG pO2 ABG HCO3 ABG O2 Saturation ABG Base Excess ABG Hemoglobin Oxyhemoglobin Sodium 153 H Potassium Chloride 114.9 H Carbon Dioxide BUN 74 H Glucose 155 H POC Glucose 127 H Lactic Acid Calcium 8.1 L Phosphorus Magnesium AST ALT Alkaline Phosphatase Lactate Dehydrogenase Troponin T C-Reactive Protein NT-Pro-B Natriuret Pep Total Protein Albumin LDL Cholesterol Direct Vitamin B12 Crossmatch 11/16/21 11/16/21 11/16/21 11:34 14:00 15:25 WBC 17.2 H RBC 2.08 L Hgb 4.7 L* Hct 16.2 L* MCV 78 L MCH 23 L MCHC 29 L RDW 26.0 H Plt Count Seg Neuts % (Manual) 87.0 H Lymphocytes % (Manual) 8.0 L Seg Neutrophils # Man 15.0 H Lymphocytes # (Manual) Monocytes # (Manual) 0.9 H PT INR D-Dimer ABG pH ABG pO2 ABG HCO3 ABG O2 Saturation ABG Base Excess ABG Hemoglobin Oxyhemoglobin Sodium Potassium Chloride Carbon Dioxide BUN Glucose POC Glucose 131 H Lactic Acid Calcium Phosphorus Magnesium AST ALT Alkaline Phosphatase Lactate Dehydrogenase Troponin T C-Reactive Protein NT-Pro-B Natriuret Pep Total Protein Albumin LDL Cholesterol Direct Vitamin B12 Crossmatch See Detail 11/16/21 11/16/21 11/16/21 15:25 17:21 22:43 WBC RBC Hgb 8.6 L D Hct 27.7 L D MCV MCH MCHC RDW Plt Count Seg Neuts % (Manual) Lymphocytes % (Manual) Seg Neutrophils # Man Lymphocytes # (Manual) Monocytes # (Manual) PT INR D-Dimer ABG pH ABG pO2 ABG HCO3 ABG O2 Saturation ABG Base Excess ABG Hemoglobin Oxyhemoglobin Sodium 148 H Potassium Chloride 113.2 H Carbon Dioxide BUN 84 H Glucose 164 H POC Glucose 124 H Lactic Acid Calcium 7.6 L Phosphorus Magnesium AST ALT Alkaline Phosphatase Lactate Dehydrogenase Troponin T C-Reactive Protein NT-Pro-B Natriuret Pep Total Protein Albumin LDL Cholesterol Direct Vitamin B12 Crossmatch 11/16/21 11/17/21 11/17/21 23:07 05:33 05:56 WBC 25.1 H RBC 3.47 L Hgb 8.7 L Hct 28.5 L MCV MCH 25 L MCHC RDW 22.3 H Plt Count Seg Neuts % (Manual) Lymphocytes % (Manual) Seg Neutrophils # Man Lymphocytes # (Manual) Monocytes # (Manual) PT INR D-Dimer ABG pH ABG pO2 ABG HCO3 ABG O2 Saturation ABG Base Excess ABG Hemoglobin Oxyhemoglobin Sodium Potassium Chloride Carbon Dioxide BUN Glucose POC Glucose 128 H 133 H Lactic Acid Calcium Phosphorus Magnesium AST ALT Alkaline Phosphatase Lactate Dehydrogenase Troponin T C-Reactive Protein NT-Pro-B Natriuret Pep Total Protein Albumin LDL Cholesterol Direct Vitamin B12 Crossmatch 11/17/21 11/17/21 11/17/21 05:56 11:00 11:55 WBC RBC Hgb 8.3 L Hct 26.9 L MCV MCH MCHC RDW Plt Count Seg Neuts % (Manual) Lymphocytes % (Manual) Seg Neutrophils # Man Lymphocytes # (Manual) Monocytes # (Manual) PT INR D-Dimer ABG pH ABG pO2 ABG HCO3 ABG O2 Saturation ABG Base Excess ABG Hemoglobin Oxyhemoglobin Sodium 151 H Potassium Chloride 113.6 H Carbon Dioxide BUN 85 H Glucose 132 H POC Glucose 121 H Lactic Acid Calcium 7.8 L Phosphorus Magnesium AST ALT Alkaline Phosphatase Lactate Dehydrogenase Troponin T C-Reactive Protein NT-Pro-B Natriuret Pep Total Protein 5.1 L Albumin 2.2 L LDL Cholesterol Direct Vitamin B12 Crossmatch 11/17/21 11/17/21 11/18/21 18:04 18:55 00:26 WBC RBC Hgb 7.5 L 7.1 L Hct 24.8 L 23.6 L MCV MCH MCHC RDW Plt Count Seg Neuts % (Manual) Lymphocytes % (Manual) Seg Neutrophils # Man Lymphocytes # (Manual) Monocytes # (Manual) PT INR D-Dimer ABG pH ABG pO2 ABG HCO3 ABG O2 Saturation ABG Base Excess ABG Hemoglobin Oxyhemoglobin Sodium Potassium Chloride Carbon Dioxide BUN Glucose POC Glucose 144 H Lactic Acid Calcium Phosphorus Magnesium AST ALT Alkaline Phosphatase Lactate Dehydrogenase Troponin T C-Reactive Protein NT-Pro-B Natriuret Pep Total Protein Albumin LDL Cholesterol Direct Vitamin B12 Crossmatch 11/18/21 11/18/21 11/18/21 00:43 05:10 05:10 WBC 12.5 H RBC 2.39 L Hgb 6.1 L Hct 20.2 L MCV MCH 25 L MCHC RDW 23.2 H Plt Count Seg Neuts % (Manual) Lymphocytes % (Manual) Seg Neutrophils # Man Lymphocytes # (Manual) Monocytes # (Manual) PT INR D-Dimer ABG pH ABG pO2 ABG HCO3 ABG O2 Saturation ABG Base Excess ABG Hemoglobin Oxyhemoglobin Sodium 131 L D Potassium 2.9 L* D Chloride 97.8 L Carbon Dioxide BUN 58 H Glucose 665 H* POC Glucose 139 H Lactic Acid Calcium 7.0 L Phosphorus 2.20 L D Magnesium 1.50 L AST ALT Alkaline Phosphatase Lactate Dehydrogenase Troponin T C-Reactive Protein NT-Pro-B Natriuret Pep Total Protein Albumin LDL Cholesterol Direct Vitamin B12 Crossmatch 11/18/21 11/18/21 11/18/21 05:23 07:10 10:45 WBC RBC Hgb Hct MCV MCH MCHC RDW Plt Count Seg Neuts % (Manual) Lymphocytes % (Manual) Seg Neutrophils # Man Lymphocytes # (Manual) Monocytes # (Manual) PT INR D-Dimer ABG pH ABG pO2 ABG HCO3 ABG O2 Saturation ABG Base Excess ABG Hemoglobin Oxyhemoglobin Sodium 148 H D Potassium 3.1 L Chloride 111.9 H Carbon Dioxide BUN 63 H Glucose 141 H POC Glucose 124 H Lactic Acid Calcium 8.1 L D Phosphorus Magnesium AST ALT Alkaline Phosphatase Lactate Dehydrogenase Troponin T C-Reactive Protein NT-Pro-B Natriuret Pep Total Protein Albumin LDL Cholesterol Direct Vitamin B12 Crossmatch See Detail 02/11/0811/19/21 11/19/21 11:57 00:19 04:55 WBC RBC 3.35 L Hgb 9.0 L 8.9 L Hct 28.3 L D 28.1 L MCV MCH 27 L MCHC RDW 20.3 H Plt Count Seg Neuts % (Manual) Lymphocytes % (Manual) Seg Neutrophils # Man Lymphocytes # (Manual) Monocytes # (Manual) PT INR D-Dimer ABG pH ABG pO2 ABG HCO3 ABG O2 Saturation ABG Base Excess ABG Hemoglobin Oxyhemoglobin Sodium Potassium Chloride Carbon Dioxide BUN Glucose POC Glucose 119 H Lactic Acid Calcium Phosphorus Magnesium AST ALT Alkaline Phosphatase Lactate Dehydrogenase Troponin T C-Reactive Protein NT-Pro-B Natriuret Pep Total Protein Albumin LDL Cholesterol Direct Vitamin B12 Crossmatch 11/19/21 11/19/21 11/20/21 04:55 05:42 00:55 WBC RBC Hgb 9.0 L Hct 28.6 L MCV MCH MCHC RDW Plt Count Seg Neuts % (Manual) Lymphocytes % (Manual) Seg Neutrophils # Man Lymphocytes # (Manual) Monocytes # (Manual) PT INR D-Dimer ABG pH ABG pO2 ABG HCO3 ABG O2 Saturation ABG Base Excess ABG Hemoglobin Oxyhemoglobin Sodium Potassium 3.5 L Chloride 108.6 H Carbon Dioxide BUN 47 H Glucose 207 H POC Glucose 63 L Lactic Acid Calcium 7.1 L Phosphorus Magnesium AST ALT Alkaline Phosphatase Lactate Dehydrogenase Troponin T C-Reactive Protein NT-Pro-B Natriuret Pep Total Protein Albumin LDL Cholesterol Direct Vitamin B12 Crossmatch 11/20/21 11/20/21 11/20/21 05:40 05:40 Unknown WBC RBC 3.40 L Hgb 9.1 L Hct 28.8 L MCV MCH 27 L MCHC RDW 20.7 H Plt Count Seg Neuts % (Manual) Lymphocytes % (Manual) Seg Neutrophils # Man Lymphocytes # (Manual) Monocytes # (Manual) PT INR D-Dimer ABG pH ABG pO2 ABG HCO3 ABG O2 Saturation ABG Base Excess -2.7 L ABG Hemoglobin 9.5 L Oxyhemoglobin 94.3 L Sodium Potassium 3.5 L Chloride 108.9 H Carbon Dioxide BUN 37 H Glucose 117 H POC Glucose Lactic Acid Calcium 7.5 L Phosphorus Magnesium AST ALT Alkaline Phosphatase Lactate Dehydrogenase Troponin T C-Reactive Protein NT-Pro-B Natriuret Pep Total Protein Albumin LDL Cholesterol Direct Vitamin B12 Crossmatch 11/21/21 11/21/21 11/21/21 04:30 04:30 16:00 WBC RBC 3.25 L Hgb 8.6 L Hct 28.1 L MCV MCH 26 L MCHC RDW 20.7 H Plt Count Seg Neuts % (Manual) Lymphocytes % (Manual) Seg Neutrophils # Man Lymphocytes # (Manual) Monocytes # (Manual) PT INR D-Dimer ABG pH ABG pO2 114.2 H ABG HCO3 ABG O2 Saturation ABG Base Excess ABG Hemoglobin 9.1 L Oxyhemoglobin Sodium 134 L Potassium Chloride Carbon Dioxide 20 L BUN 34 H Glucose POC Glucose Lactic Acid Calcium 7.1 L Phosphorus Magnesium AST ALT Alkaline Phosphatase Lactate Dehydrogenase Troponin T C-Reactive Protein NT-Pro-B Natriuret Pep Total Protein Albumin LDL Cholesterol Direct Vitamin B12 Crossmatch 11/22/21 11/22/21 11/22/21 07:07 07:07 23:54 WBC RBC 3.30 L Hgb 9.0 L Hct 28.5 L MCV MCH 27 L MCHC RDW 21.0 H Plt Count Seg Neuts % (Manual) Lymphocytes % (Manual) Seg Neutrophils # Man Lymphocytes # (Manual) Monocytes # (Manual) PT INR D-Dimer ABG pH ABG pO2 ABG HCO3 ABG O2 Saturation ABG Base Excess ABG Hemoglobin Oxyhemoglobin Sodium Potassium Chloride Carbon Dioxide BUN 32 H Glucose 106 H POC Glucose 110 H Lactic Acid Calcium 7.5 L Phosphorus Magnesium AST ALT Alkaline Phosphatase Lactate Dehydrogenase Troponin T C-Reactive Protein NT-Pro-B Natriuret Pep Total Protein Albumin LDL Cholesterol Direct Vitamin B12 Crossmatch 11/23/21 11/23/21 11/23/21 04:38 04:38 06:01 WBC RBC 3.23 L Hgb 8.8 L Hct 28.0 L MCV MCH 27 L MCHC RDW 21.3 H Plt Count Seg Neuts % (Manual) Lymphocytes % (Manual) Seg Neutrophils # Man Lymphocytes # (Manual) Monocytes # (Manual) PT INR D-Dimer ABG pH ABG pO2 ABG HCO3 ABG O2 Saturation ABG Base Excess ABG Hemoglobin Oxyhemoglobin Sodium 136 L Potassium Chloride Carbon Dioxide 20 L BUN 32 H Glucose 109 H POC Glucose 115 H Lactic Acid Calcium 7.7 L Phosphorus Magnesium AST ALT Alkaline Phosphatase Lactate Dehydrogenase Troponin T C-Reactive Protein NT-Pro-B Natriuret Pep Total Protein Albumin LDL Cholesterol Direct Vitamin B12 Crossmatch 11/23/21 11/24/21 11/24/21 11:40 00:03 04:13 WBC RBC 3.18 L Hgb 8.5 L Hct 27.5 L MCV MCH 27 L MCHC RDW 21.6 H Plt Count Seg Neuts % (Manual) Lymphocytes % (Manual) Seg Neutrophils # Man Lymphocytes # (Manual) Monocytes # (Manual) PT INR D-Dimer ABG pH ABG pO2 ABG HCO3 ABG O2 Saturation ABG Base Excess ABG Hemoglobin Oxyhemoglobin Sodium Potassium Chloride Carbon Dioxide BUN Glucose POC Glucose 117 H 111 H Lactic Acid Calcium Phosphorus Magnesium AST ALT Alkaline Phosphatase Lactate Dehydrogenase Troponin T C-Reactive Protein NT-Pro-B Natriuret Pep Total Protein Albumin LDL Cholesterol Direct Vitamin B12 Crossmatch 11/24/21 11/24/21 11/24/21 04:13 05:30 11:10 WBC RBC Hgb Hct MCV MCH MCHC RDW Plt Count Seg Neuts % (Manual) Lymphocytes % (Manual) Seg Neutrophils # Man Lymphocytes # (Manual) Monocytes # (Manual) PT INR D-Dimer ABG pH ABG pO2 ABG HCO3 ABG O2 Saturation ABG Base Excess ABG Hemoglobin Oxyhemoglobin Sodium Potassium Chloride Carbon Dioxide BUN 31 H Glucose 101 H POC Glucose 115 H 107 H Lactic Acid Calcium 7.7 L Phosphorus Magnesium AST ALT Alkaline Phosphatase Lactate Dehydrogenase Troponin T C-Reactive Protein NT-Pro-B Natriuret Pep Total Protein Albumin LDL Cholesterol Direct Vitamin B12 Crossmatch 11/24/21 11/24/21 11/25/21 16:34 17:57 05:12 WBC RBC 3.11 L Hgb 8.2 L Hct 26.6 L MCV MCH 26 L MCHC RDW 21.3 H Plt Count Seg Neuts % (Manual) Lymphocytes % (Manual) Seg Neutrophils # Man Lymphocytes # (Manual) Monocytes # (Manual) PT INR D-Dimer ABG pH ABG pO2 ABG HCO3 ABG O2 Saturation ABG Base Excess ABG Hemoglobin Oxyhemoglobin Sodium Potassium Chloride Carbon Dioxide BUN Glucose POC Glucose 115 H 110 H Lactic Acid Calcium Phosphorus Magnesium AST ALT Alkaline Phosphatase Lactate Dehydrogenase Troponin T C-Reactive Protein NT-Pro-B Natriuret Pep Total Protein Albumin LDL Cholesterol Direct Vitamin B12 Crossmatch 11/25/21 11/25/21 11/26/21 05:12 11:20 05:00 WBC RBC 3.30 L Hgb 8.8 L Hct 28.2 L MCV MCH 27 L MCHC RDW 20.7 H Plt Count Seg Neuts % (Manual) Lymphocytes % (Manual) Seg Neutrophils # Man Lymphocytes # (Manual) Monocytes # (Manual) PT INR D-Dimer ABG pH ABG pO2 ABG HCO3 ABG O2 Saturation ABG Base Excess ABG Hemoglobin Oxyhemoglobin Sodium Potassium Chloride Carbon Dioxide BUN 32 H Glucose 118 H POC Glucose 118 H Lactic Acid Calcium 8.2 L Phosphorus Magnesium AST ALT Alkaline Phosphatase Lactate Dehydrogenase Troponin T C-Reactive Protein NT-Pro-B Natriuret Pep Total Protein Albumin LDL Cholesterol Direct Vitamin B12 Crossmatch 11/26/21 11/26/21 11/26/21 05:00 05:00 05:44 WBC RBC Hgb Hct MCV MCH MCHC RDW Plt Count Seg Neuts % (Manual) Lymphocytes % (Manual) Seg Neutrophils # Man Lymphocytes # (Manual) Monocytes # (Manual) PT 16.9 H INR 1.24 H D-Dimer ABG pH ABG pO2 ABG HCO3 ABG O2 Saturation ABG Base Excess ABG Hemoglobin Oxyhemoglobin Sodium Potassium Chloride Carbon Dioxide BUN 31 H Glucose 104 H POC Glucose 110 H Lactic Acid Calcium 7.9 L Phosphorus Magnesium AST ALT Alkaline Phosphatase Lactate Dehydrogenase Troponin T C-Reactive Protein NT-Pro-B Natriuret Pep Total Protein Albumin LDL Cholesterol Direct Vitamin B12 Crossmatch 11/26/21 11/27/21 11/27/21 23:55 07:40 07:40 WBC RBC 3.18 L Hgb 8.5 L Hct 27.0 L MCV MCH 27 L MCHC RDW 21.2 H Plt Count Seg Neuts % (Manual) Lymphocytes % (Manual) Seg Neutrophils # Man Lymphocytes # (Manual) Monocytes # (Manual) PT INR D-Dimer ABG pH ABG pO2 ABG HCO3 ABG O2 Saturation ABG Base Excess ABG Hemoglobin Oxyhemoglobin Sodium Potassium Chloride Carbon Dioxide BUN 27 H Glucose 112 H POC Glucose 63 L Lactic Acid Calcium 7.6 L Phosphorus Magnesium AST ALT Alkaline Phosphatase Lactate Dehydrogenase Troponin T C-Reactive Protein NT-Pro-B Natriuret Pep Total Protein Albumin LDL Cholesterol Direct Vitamin B12 Crossmatch 11/27/21 11/27/21 11/27/21 12:04 17:44 23:33 WBC RBC Hgb Hct MCV MCH MCHC RDW Plt Count Seg Neuts % (Manual) Lymphocytes % (Manual) Seg Neutrophils # Man Lymphocytes # (Manual) Monocytes # (Manual) PT INR D-Dimer ABG pH ABG pO2 ABG HCO3 ABG O2 Saturation ABG Base Excess ABG Hemoglobin Oxyhemoglobin Sodium Potassium Chloride Carbon Dioxide BUN Glucose POC Glucose 109 H 107 H 108 H Lactic Acid Calcium Phosphorus Magnesium AST ALT Alkaline Phosphatase Lactate Dehydrogenase Troponin T C-Reactive Protein NT-Pro-B Natriuret Pep Total Protein Albumin LDL Cholesterol Direct Vitamin B12 Crossmatch 11/28/21 12:20 WBC RBC Hgb Hct MCV MCH MCHC RDW Plt Count Seg Neuts % (Manual) Lymphocytes % (Manual) Seg Neutrophils # Man Lymphocytes # (Manual) Monocytes # (Manual) PT INR D-Dimer ABG pH ABG pO2 ABG HCO3 ABG O2 Saturation ABG Base Excess ABG Hemoglobin Oxyhemoglobin Sodium Potassium Chloride Carbon Dioxide BUN Glucose POC Glucose 114 H Lactic Acid Calcium Phosphorus Magnesium AST ALT Alkaline Phosphatase Lactate Dehydrogenase Troponin T C-Reactive Protein NT-Pro-B Natriuret Pep Total Protein Albumin LDL Cholesterol Direct Vitamin B12 Crossmatch Allied health notes reviewed: nursing
[2021-11-28 14:49] LABS: BUN/Creatinine Ratio 36; Blood Urea Nitrogen 25 mg/dL (7-17); Calcium 7.6 mg/dL (8.4-10.2); Hemolysis Index 0
[2021-11-28 14:51] LABS: Hemoglobin 8.7 gm/dl (10.1-14.3); Mean Corpuscular HGB Conc 31 % (30-34); Mean Corpuscular Volume 85 fl (79-97); Platelet Count 310 K/mm3 (140-440); Red Blood Count 3.31 M/mm3 (3.65-5.03)
[2021-11-28 15:11] LABS: Red Cell Distribution Width 20.7 % (13.2-15.2)
--- NOTE | 2021-11-28 17:30 | Progress Note ---
Assessment and Plan Assessment and plan: This is a 81-year-old female with known history of diabetes mellitus, hypertension, PPM, and arthritis admitted for sepsis and acute hypoxia respiratory failure 2/2 bilateral pneumonia requiring intubation and ventilatory support Assessment and Plan Neuro : Acute encephalopathy -Neurology consulted, appreciate recommendations -CT brain showed no acute events -EEG interpreted as abnormal record due to diffuse slowing noted throughout the recording, suggestive of encephalopathic process and/or drug effect, possibilities of postictal state cannot be totally excluded. Clinical correlation is in order -MRI brain not obtained-> patient has metal in her body -Repeat CT head with no acute findings -Reorientation as needed -Ammonia 42, B12 1823, TSH 1.5 -BuSpar, fentanyl patch, Seroquel, Conklin Cardio: Heart failure with reduced EF, h/o chronic heart block s/p PPM, HTN/CAD s/p PCI (2004) -s/p vasopressor support with levophed -map goal >65 -11/04 echocardiogram shows EF 30 to 35% -Cardiology consulted, appreciate recommendations -Continue beta-charleen and statin therapy -Not on aspirin due to allergy -Blood pressure monitoring per protocol Resp: Acute hypoxic respiratory failure secondary to bilateral pneumonia, bi lateral pleural effusion. Right pneumothorax (resolved) -COVID-19 PCR negative -Intubated on 11/06 with 6.00 ETT at 18 at the lip and changed over bougie on 11/11-7.50 ETT at 20 at the lip -A.m. vent settings: Assist-control rate 14, tidal volume 400, PEEP 6, FiO2 30 % -See RT notes for titration -PSV today -Surgery consult for trach -Received trach/PEG on 11/26 -S/p bedside bronchoscopy on 11/11 complicated by pneumothorax -S/p chest tube placement for right pneumothorax and dislodgment by patient on 11/15 -ABG/CXR per CCM -VAP bundle -Right chest wall ultrasound showed pleural effusion s/p chest tube -SPO2 monitoring -Mucomyst every 8 -Albuterol every 8 GI: S/p GI bleed, duodenal ulcer,transaminitis -GI consulted, appreciate recommendations -Nutrition consult for tube feeding -BR: Senokot, MiraLAX -s/p peg trach 11/26 -H2 charleen -Carafate -24-hour -126 ml -BM 11/28 -Gastric occult positive : Urinary retention, hypophosphatemia -Gamble catheter in place -Strict intake and output -Trend BMP ID: Septic shock, POA, bilateral pneumonia, bacteremia -Infectious disease consulted, appreciate recommendations -COVID-19 PCR negative -Presented with fevers, leukocytosis and hypotension -11/04 blood cultures positive with a group B strep bacteremia however repeat blood cultures on the with no growth to date -Echo showed no evidence of vegetation -ABX therapy: Ceftriaxone (), vancomycin (11/05, ), clindamycin ), cefepime , ) -Monitor WBC and fever curve -Recultured on 11/11 with NGTD -Bedside bronchoscopy for mucous plug on CXR 11/11 Heme: Acute DVT in the right external iliac vein, common femoral vein, superior aspect of femoral vein, Acute microcytic anemia -Evidenced on bilateral upper lower extremity ultrasound -S/p 5 unit PRBC -Trend CBC -Transfuse for hemoglobin less than 7 -S/p IVC filter Endo: h/o DM and hypothyroidism -Continue home Synthroid -SSI -Accu-Cheks every 6 -Avoid hypoglycemia The high probability of a clinically significant, sudden or life threatening deterioration of the [multi] system(s) required my full and direct attention, intervention and personal management. The aggregate critical care time was [60] minutes. This time is in addition to time spent performing reported procedures but includes the following: [x] Data Review and interpretation [x] Patient assessment and monitoring of vital signs [x] Documentation [x] Medication orders and management Disposition Plan: icu Total Time Spent with Patient (Minutes): 60 History Interval history: This is an 82-year-old female with DM, HTN , PPM and arthritis who presented to the emergency department on 11/04 for shortness of breath ongoing for the past 3 days, cough and according to family a fever of 102.2. Upon arrival of EMS patient was found to be tachypneic and hypoxic with SPO2 of 76% on room air which later improved to 88% on nonrebreather. Work-up in the emergency department included a CXR which showed bilateral interstitial pulmonary edema with bilateral pleural effusions and bibasilar opacities, leukocytosis and anemia with a hemoglobin of 6.1. Patient was admitted to the hospitalist service with acute anemia, acute hypoxic respiratory failure, bilateral pneumonia and COVID-19 PUI with consults to pulmonology, infectious disease and later cardiology. Patient was eventually intubated in the emergency department on 11/06. Hospital Course to date: 11/04/2021: Empiric therapy with iv levaquin/vancomycin. COVID PCR pending. Will consult ID. PCCM consulted, will follow recs. Hypotensive this AM, ordered bolus and fluids at 150 cc/hr. May require pressor support if bp does not improve. 11/05/2021: GBS on bcx +, currently on rocephin IV. Currently on bipap due to r espiratory distress overnight. Worsening BL opacities on CXR. May be volume overload vs pneumonia. Unfortunately bp too low for lasix at this point. WIll continue levophed and bipap. Once able to tolerate, may do trial of albumin/lasix. Call attempt made to Niraj, no response. Will try again tomorrow to update. 11/06/2021: Decompensated overnight requiring intubation. CXR shows worsening interstitial infiltrates. Currenlty on dopamine, levophed, vasopressin. PICC line ordered. Advised RN to place gamble for I/O monitoring. Would benefit from diuresis but very volume overloaded. Prognosis guarded 11/08: Off sedation this am, remains unresponsive only grimace to pain. Hold all sedatives agents for now, patient is off pressors this am. Hypernatremia from today's lab- D5W X1bag, and low K repleted, repeat lab in the am. Severe constipation also noted from KUB, BR added. 11/09: Sudden SPO2 drop in the 60s this am. Patient was manually bagged and deep suctioned. Patient is currently stable on the vent, repeat CXR with no significant change. D/w CCM Mucomyst and brochodilator added. Patient mentation is unchanged, continue to hold off on sedative agents. Neurology consulted. 11/10: Acute DVT noted on bilateral lower extremity Doppler ultrasound therefore she was started on Lovenox treatment dose. Failed SBT. Hypernatremia and hyperchloremia noted, free water flush adjusted. 11/11: Patient noted to be febrile with increasing of the cytosis, UA/BC sent and CXR ordered. ID escalated antibiotics to cefepime. CXR demonstrated mucous plug, bedside bronchoscopy was performed and O ETT was changed over bougie from 6 cm to 7.5. Patient was noted to have a pneumothorax postprocedure and chest tube was placed. Family updated by [facility]. Free water flush increased and will ad d Jaswant supplementation. 11/12: Patient not noted to follow commands, hypernatremia worsen/persist, increasing free water flush, potassium and magnesium and phosphorus repleted. Hemoglobin noted to be 7.1/24.5 from 7.03/12 yesterday. We will continue to trend and monitor. Vent changes per [facility]. Repeat CXR showed no residual pneumothorax. Consider waterseal tomorrow. Given persistent leukocytosis antibiotics escalated to cefepime per ID. 11/13: Remains on cefepime and vancomycin, vent changes per [facility]. Anemia noted and given 1 unit PRBC. And beta-charleen held in setting of Levophed drip in fusing. Remains on fentanyl drip. 11/14: Patient put on CPAP trial by [facility], will continue chest tube until after extubation. Will rest on assist control. CT brain was cancelled by radiologic technologist mammogram and reordered. 11/15: Patient removed chest tube overnight. Will obtain cxr. remains on low dose levo. CTH completed with no acute findings. RT to place on CPAP. 11/16: Hypernatremia/hyperchloremia noted on the increase of day water flushes. Anemia noted and ordered PRBC. asked RT to place on cpap but not done yet 11/17: Patient remains on the vent, awake and following commands. H&H stable s/p 2units PRBCs. GI on consult, no intervention at this time. Will continue protonix gtt and serial H&H Q6hrs. Keep patient NPO for now, D5w added for hypernatremia and NPO status. Plan for IVC filter placement today by [facility]. 11/18: Patient is s/p IVC filter. H&H continue to trend down, hbg 6.1 this am, 1 unit of PRBCs ordered. Plan for possible EGD today by GI. Keep patient NPO, continue PPI drip and serial H&H Q6hrs. Electrolytes repleted, repeat lab in the am 11/19: S/p EGD- larger duodenal ulcer noted, see operative note. GI recommendations noted also noted. H&H stable this am. Keep patient on protonix gtt for now. Will keep patient NPO, continue IVF and serial H&H for now. Electrolytes repleted, repeat labs in the am 11/20: Very agitated and restless this am, fentanyl gtt resumed. Patient remains on protonix gtt, H&H remains stable. Will switch protonix gtt to IV BID, continue carafate and okay to resume meds at this time. Will F/u with GI to see if TF can be resumed. Gamble was reinserted overnight for retention. Electrolytes repleted, repeat in the am. Plan for possible PST today for possible extubation per [facility]. 11/21: Patient is now on seroquel and patient's home buspar resumed. Patient more calm this morning, fentanyl gtt is off. H&H remains stable and patient is tolerating TF. Patient had a runs of Vtach/PVCs this am, BB added per Cardio. Continue daily PS and wean trial for possible extubation. 11/22: Back on fentanyl gtt overnight , RASS o to -1, following commands. Patient failed PST this am due to increased work of breathing and low SPO2, ABG pending. Patient is also with worsen pitting edema, lasix is still on hold. Will discuss with cardio and CCM to possibly resume lasix. 11/23: MARIA DEL CARMEN overnight. Patient failed PST again this am. Per CCM plan for possible trach and PEG, hold off on IV lasix for now. General surgery consulted and family is aware of possible Trach and PEG. 11/24: Trach/PEG pending this week, continue SBT/SAT as tolerated. No acute events reported overnight. 11/25: Patient was n.p.o. overnight and will remain n.p.o. tonight for trach/PEG tomorrow morning. She failed to support trial again. KUB obtained due to distended belly. 11/26: Patient scheduled for tracheostomy and PEG tube placement today, has been n.p.o. since midnight. No acute events reported overnight. [facility] ordered simethicone scheduled. 11/27: No acute events reported overnight, patient received trach/PEG yesterday. Has been on feedings since last night. Still awaiting LTAC placement. 11/28: Patient magnesium repleted, repeat a.m. labs, SBT Hospitalist Physical - Physical exam Narrative exam: General appearance: Present: no acute distress, other (On the vent) - EENT Eyes: Present: PERRL, EOM intact ENT: poor dentition - Neck Neck: Present: normal ROM - Respiratory Respiratory effort: normal Respiratory: bilateral: diminished - Cardiovascular Rhythm: regular Heart Sounds: Present: S1 & S2. Absent: systolic murmur, diastolic murmur - Extremities Extremities: no ischemia, pulses intact, pulses symmetrical, normal temperature, normal color Peripheral Pulses: within normal limits - Abdominal General gastrointestinal: soft, non-tender, non-distended, normal bowel sounds - Integumentary Integumentary: Present: warm, dry - Psychiatric Psychiatric: cooperative - Neurologic Neurologic: CNII-XII intact - Allied Health Allied health notes reviewed: nursing, RT, social work - Constitutional Vitals: Temp Pulse Resp BP Pulse Ox 99.5 F 81 21 122/56 99 11/28/21 12:00 11/28/21 17:01 11/28/21 17:01 11/28/21 17:01 11/28/21 16:00 General appearance: Present: no acute distress, other (On the vent) HEART Score - HEART Score Troponin: Troponin T 0.033 ng/mL (0.00-0.029) H 11/05/21 06:11 Results - Labs CBC & Chem 7: 11/27/21 13:40 11/27/21 13:40 Labs: Laboratory Last Values WBC 9.8 K/mm3 (4.5-11.0) 11/27/21 13:40 RBC 3.31 M/mm3 (3.65-5.03) L 11/27/21 13:40 Hgb 8.7 gm/dl (10.1-14.3) L 11/27/21 13:40 Hct 28.0 % (30.3-42.9) L 11/27/21 13:40 MCV 85 fl (79-97) 11/27/21 13:40 MCH 26 pg (28-32) L 11/27/21 13:40 MCHC 31 % (30-34) 11/27/21 13:40 RDW 20.7 % (13.2-15.2) H 11/27/21 13:40 Plt Count 310 K/mm3 (140-440) 11/27/21 13:40 Add Manual Diff Complete 11/16/21 15:25 Total Counted 100 11/16/21 15:25 Seg Neutrophils % Aerodynamic Consultant 11/06/21 15:50 Seg Neuts % (Manual) 87.0 % (40.0-70.0) H 11/16/21 15:25 Band Neutrophils % 0 % 11/16/21 15:25 Lymphocytes % (Manual) 8.0 % (13.4-35.0) L 11/16/21 15:25 Reactive Lymphs % (Man) 0 % 11/16/21 15:25 Monocytes % (Manual) 5.0 % (0.0-7.3) 11/16/21 15:25 Eosinophils % (Manual) 0 % (0.0-4.3) 11/16/21 15:25 Basophils % (Manual) 0 % (0.0-1.8) 11/16/21 15:25 Metamyelocytes % 0 % 11/16/21 15:25 Myelocytes % 0 % 11/16/21 15:25 Promyelocytes % 0 % 11/16/21 15:25 Blast Cells % 0 % 11/16/21 15:25 Nucleated RBC % Not Reportable 11/16/21 15:25 Seg Neutrophils # Man 15.0 K/mm3 (1.8-7.7) H 11/16/21 15:25 Band Neutrophils # 0.0 K/mm3 11/16/21 15:25 Lymphocytes # (Manual) 1.4 K/mm3 (1.2-5.4) 11/16/21 15:25 Abs React Lymphs (Man) 0.0 K/mm3 11/16/21 15:25 Monocytes # (Manual) 0.9 K/mm3 (0.0-0.8) H 11/16/21 15:25 Eosinophils # (Manual) 0.0 K/mm3 (0.0-0.4) 11/16/21 15:25 Basophils # (Manual) 0.0 K/mm3 (0.0-0.1) 11/16/21 15:25 Metamyelocytes # 0.0 K/mm3 11/16/21 15:25 Myelocytes # 0.0 K/mm3 11/16/21 15:25 Promyelocytes # 0.0 K/mm3 11/16/21 15:25 Blast Cells # 0.0 K/mm3 11/16/21 15:25 WBC Morphology Not Reportable 11/16/21 15:25 Hypersegmented Neuts Not Reportable 11/16/21 15:25 Hyposegmented Neuts Not Reportable 11/16/21 15:25 Hypogranular Neuts Not Reportable 11/16/21 15:25 Smudge Cells Not Reportable 11/16/21 15:25 Toxic Granulation Not Reportable 11/16/21 15:25 Toxic Vacuolation Not Reportable 11/16/21 15:25 Dohle Bodies Not Reportable 11/16/21 15:25 Pelger-Huet Anomaly Not Reportable 11/16/21 15:25 Irina Rods Not Reportable 11/16/21 15:25 Platelet Estimate Consistent w auto 11/16/21 15:25 Clumped Platelets Rare 11/16/21 15:25 Plt Clumps, EDTA Not Reportable 11/16/21 15:25 Large Platelets Not Reportable 11/16/21 15:25 Giant Platelets Not Reportable 11/16/21 15:25 Platelet Satelliting Not Reportable 11/16/21 15:25 Plt Morphology Comment Not Reportable 11/16/21 15:25 RBC Morphology Not Reportable 11/16/21 15:25 Dimorphic RBCs Not Reportable 11/16/21 15:25 Polychromasia Not Reportable 11/16/21 15:25 Hypochromasia 2+ 11/16/21 15:25 Poikilocytosis Not Reportable 11/16/21 15:25 Anisocytosis 2+ 11/16/21 15:25 Microcytosis Not Reportable 11/16/21 15:25 Macrocytosis Not Reportable 11/16/21 15:25 Spherocytes Not Reportable 11/16/21 15:25 Pappenheimer Bodies Not Reportable 11/16/21 15:25 Sickle Cells Not Reportable 11/16/21 15:25 Target Cells 2+ 11/16/21 15:25 Tear Drop Cells Not Reportable 11/16/21 15:25 Ovalocytes Not Reportable 11/16/21 15:25 Helmet Cells Not Reportable 11/16/21 15:25 Odonnell-Edith Endave Bodies Not Reportable 11/16/21 15:25 [place] Rings Not Reportable 11/16/21 15:25 [place] Cells Not Reportable 11/16/21 15:25 Bite Cells Not Reportable 11/16/21 15:25 Crenated Cell Not Reportable 11/16/21 15:25 Elliptocytes Not Reportable 11/16/21 15:25 Acanthocytes (Spur) Not Reportable 11/16/21 15:25 Rouleaux Not Reportable 11/16/21 15:25 Hemoglobin C Crystals Not Reportable 11/16/21 15:25 Schistocytes Not Reportable 11/16/21 15:25 Malaria parasites Not Reportable 11/16/21 15:25 Godfrey Bodies Not Reportable 11/16/21 15:25 Hem Pathologist Commnt No 11/16/21 15:25 PT 16.9 Sec. (12.2-14.9) H 11/26/21 05:00 INR 1.24 (0.87-1.13) H 11/26/21 05:00 APTT 29.2 Sec. (24.2-36.6) 11/26/21 05:00 D-Dimer 2655.00 ng/mlDDU (0-234) H 11/11/21 04:28 ABG pH 7.449 pH Units (7.350-7.450) 11/21/21 16:00 ABG pCO2 32.1 mm Hg 11/21/21 16:00 ABG pO2 114.2 mm Hg (80.0-90.0) H 11/21/21 16:00 ABG HCO3 21.8 mmol/L (20.0-26.0) 11/21/21 16:00 ABG O2 Saturation 98.3 % (95.0-99.0) 11/21/21 16:00 ABG O2 Content 12.5 (0.0-44) 11/21/21 16:00 ABG Base Excess -1.7 mmol/L (-2.0-3.0) 11/21/21 16:00 ABG Hemoglobin 9.1 gm/dl (12.0-16.0) L 11/21/21 16:00 ABG Carboxyhemoglobin 1.9 % (0.0-5.0) 11/21/21 16:00 ABG Methemoglobin 0.5 % (0.0-1.5) 11/21/21 16:00 Oxyhemoglobin 96.0 % (95.0-99.0) 11/21/21 16:00 FiO2 30 % 11/21/21 16:00 Sodium 136 mmol/L (137-145) L 11/27/21 13:40 Potassium 3.9 mmol/L (3.6-5.0) 11/27/21 13:40 Chloride 101.1 mmol/L (98-107) 11/27/21 13:40 Carbon Dioxide 27 mmol/L (22-30) 11/27/21 13:40 Anion Gap 12 mmol/L 11/27/21 13:40 BUN 25 mg/dL (7-17) H 11/27/21 13:40 Creatinine 0.7 mg/dL (0.6-1.2) 11/27/21 13:40 Estimated GFR > 60 ml/min 11/27/21 13:40 BUN/Creatinine Ratio 36 % 11/27/21 13:40 Glucose 127 mg/dL (65-100) H 11/27/21 13:40 POC Glucose 114 mg/dL (70-105) H 11/28/21 12:20 Lactic Acid 3.70 mmol/L (0.7-2.0) H* 11/03/21 22:32 Calcium 7.6 mg/dL (8.4-10.2) L 11/27/21 13:40 Phosphorus 3.40 mg/dL (2.5-4.5) 11/27/21 13:40 Magnesium 1.40 mg/dL (1.7-2.3) L 11/27/21 13:40 Ferritin 52.6 ng/mL (10.0-200.0) 11/05/21 06:11 Total Bilirubin 0.50 mg/dL (0.1-1.2) 11/17/21 05:56 Direct Bilirubin < 0.2 mg/dL (0-0.2) 11/11/21 04:28 Indirect Bilirubin 0.1 mg/dL 11/11/21 04:28 AST 36 units/L (5-40) 11/17/21 05:56 ALT 47 units/L (7-56) 11/17/21 05:56 Alkaline Phosphatase 107 units/L (35-129) 11/17/21 05:56 Ammonia 42.0 umol/L (25-60) 11/10/21 14:08 Lactate Dehydrogenase 187 units/L (91-180) H 11/05/21 06:11 Troponin T 0.033 ng/mL (0.00-0.029) H 11/05/21 06:11 C-Reactive Protein 22.20 mg/dL (0.00-1.30) H 11/05/21 06:11 NT-Pro-B Natriuret Pep 7895 pg/mL (0-900) H 11/03/21 22:32 Total Protein 5.1 g/dL (6.3-8.2) L 11/17/21 05:56 Albumin 2.2 g/dL (3.9-5) L 11/17/21 05:56 Albumin/Globulin Ratio 0.8 % 11/17/21 05:56 Triglycerides 66 mg/dL (2-149) 11/03/21 22:32 Cholesterol 80 mg/dL (50-199) 11/03/21 22:32 LDL Cholesterol Direct 34 mg/dL (50-130) L 11/03/21 22:32 HDL Cholesterol 42 mg/dL (40-59) 11/03/21 22:32 Cholesterol/HDL Ratio 1.90 % 11/03/21 22:32 Vitamin B12 1823 pg/mL (211-911) H 11/10/21 14:08 TSH 1.510 mlU/mL (0.270-4.200) 11/10/21 14:08 Urine Color Yellow (Yellow) 11/11/21 09:00 Urine Turbidity Slightly-cloudy (Clear) 11/11/21 09:00 Urine pH 5.0 (5.0-7.0) 11/11/21 09:00 Ur Specific [place] 1.009 (1.003-1.030) 11/11/21 09:00 Urine Protein <15 mg/dl mg/dL (Negative) 11/11/21 09:00 Urine Glucose (UA) Neg mg/dL (Negative) 11/11/21 09:00 Urine Ketones Neg mg/dL (Negative) 11/11/21 09:00 Urine Blood Mod (Negative) 11/11/21 09:00 Urine Nitrite Neg (Negative) 11/11/21 09:00 Urine Bilirubin Neg (Negative) 11/11/21 09:00 Urine Urobilinogen < 2.0 mg/dL (<2.0) 11/11/21 09:00 Ur Leukocyte Esterase Neg (Negative) 11/11/21 09:00 Urine WBC (Auto) < 1.0 /HPF (0.0-6.0) 11/11/21 09:00 Urine RBC (Auto) < 1.0 /HPF (0.0-6.0) 11/11/21 09:00 Coronavirus (PCR) Negative (Negative) 11/10/21 08:30 Blood Type O POSITIVE 11/18/21 10:45 Antibody Screen Negative 11/18/21 10:45 Crossmatch See Detail 11/18/21 10:45 Gamble/IV: Voiding Method Indwelling Catheter Active Medications - Current Medications Current Medications: Generic Name Dose Route Start Last Admin Trade Name Freq PRN Reason Stop Dose Admin Acetaminophen 650 mg 11/04/21 02:03 11/23/21 16:26 Acetaminophen 325 Mg Tab PO 650 mg Q6H PRN Administration Pain MILD(1-3)/Fever >100.5/RODRIGUEZ Hydrocodone Bitart/Acetaminophen 1 each 11/21/21 10:00 11/28/21 13:59 Hydrocodone/Acetaminophen 10-325mg Tab FEEDTUBE 1 each TID YOSSI Administration Lipase/Protease/Amylase 1 each 11/08/21 11:09 Lipase 10,500/Protease 25,000/Amylase 43,750 (Units) Dr Lema FEEDTUBE PRN PRN For Clogged Feeding Tube Buspirone HCl 7.5 mg 11/17/21 22:00 11/28/21 09:19 Buspirone 5 Mg Tab PO 7.5 mg BID YOSSI Administration Dextrose 0 ml 11/10/21 10:52 11/21/21 16:27 Dextrose 10% *Hypoglycemia IV 50 ml PRN PRN Administration Hypoglycemia Fentanyl 1 applic 11/17/21 13:00 11/23/21 09:29 Fentanyl 25 Mcg/Hr Patch 72hr TD 1 applic Q3D YOSSI Administration Furosemide 20 mg 11/27/21 14:00 11/28/21 09:19 Furosemide 20 Mg/2 Ml Inj IV 11/29/21 10:01 20 mg QDAY YOSSI Administration Hydrophilic Ointment 1 applic 11/06/21 04:02 Lip Therapy Vaseline TP Q2HR PRN Dry Lips Magnesium Sulfate 4 gm in 100 mls @ 25 mls/hr 11/28/21 17:24 Magnesium Sulfate 4gm/100ml IV 11/28/21 21:23 ONCE ONE Insulin Human Lispro 0 unit 11/06/21 12:00 11/28/21 13:10 Insulin Lispro 100 Unit/Ml SUB-Q Not Given Q6HR [facility] Protocol Lansoprazole 30 mg 11/24/21 22:00 11/28/21 09:20 Lansoprazole 30 Mg Solutab FEEDTUBE 30 mg BID YOSSI Administration Levothyroxine Sodium 125 mcg 11/05/21 07:00 11/28/21 05:39 Levothyroxine 125 Mcg Tab PO 125 mcg DAILY@0600 [facility] Administration Magnesium Hydroxide 30 ml 11/04/21 02:03 Magnesium Hydroxide (Mom) Oral Liqd Udc PO Q4H PRN Constipation Metoprolol Tartrate 12.5 mg 11/21/21 10:00 11/28/21 09:20 Metoprolol Tartrate 25 Mg Tab PO 12.5 mg BID [facility] Administration Multi-Ingred Cream/Lotion/Oil/Oint 1 applic 11/06/21 04:02 Mineral Oil/Petrolatum, White Ophth Oint 3.5 Gm OU Q4HR PRN Dry Eye(s) Ondansetron HCl 4 mg 11/04/21 02:03 11/05/21 15:48 Ondansetron 4 Mg/2 Ml Inj IV 4 mg Q8H PRN Administration Nausea And Vomiting Pravastatin Sodium 20 mg 11/18/21 22:00 11/27/21 21:21 Pravastatin 20 Mg Tab PO 20 mg QHS YOSSI Administration Quetiapine Fumarate 50 mg 11/20/21 22:00 11/28/21 09:20 Quetiapine 25 Mg Tab PO 50 mg BID [facility] Administration Senna 17.6 mg 11/08/21 22:00 11/28/21 09:19 Sennosides Oral Liqd 8.8 Mg/5 Ml Oral Liqd PO 17.6 mg Q12HR YOSSI Administration Simethicone 160 mg 11/26/21 20:00 11/28/21 13:59 Simethicone 80 Mg Chew Tab PO 11/29/21 14:01 160 mg TID YOSSI Administration Simple Syrup 15 ml 11/08/21 11:09 Simple Syrup 15 Ml FEEDTUBE PRN PRN Hypoglycemia Simple Syrup 30 ml 11/08/21 11:09 Simple Syrup 15 Ml FEEDTUBE PRN PRN Hypoglycemia Sodium Bicarbonate 325 mg 11/08/21 11:09 Sodium Bicarbonate 325 Mg Tab FEEDTUBE PRN PRN For Clogged Feeding Tube Sodium Chloride 10 ml 11/04/21 10:00 11/28/21 09:29 Sodium Chloride 0.9% 10 Ml Flush Syringe IV 10 ml BID YOSSI Administration Sodium Chloride 10 ml 11/04/21 02:03 Sodium Chloride 0.9% 10 Ml Flush Syringe IV PRN PRN LINE FLUSH Sodium Chloride 10 ml 11/10/21 09:57 11/17/21 20:47 Sodium Chloride 0.9% 50 Ml Ivpb IV 10 ml PRN PRN Administration FLUSH Sucralfate 1 gm 11/18/21 16:30 11/28/21 13:59 Sucralfate 1 Gm/10 Ml Oral Liqd PO 1 gm ACHS YOSSI Administration Nutrition/Malnutrition Assess - Dietary Evaluation Nutrition/Malnutrition Findings: Nutrition Notes Start: 11/04/21 17:16 Freq: Status: Active Protocol: Document 11/24/21 14:48 [facility] (Rec: 11/24/21 14:56 [facility] [id number]) Nutrition Notes Initial or Follow up Reassessment Current Diagnosis Diabetes,Hypertension,Heart Failure,Respiratory Failure Other Pertinent Diagnosis Bilat pneu, (R) pneumothorax, Septic shock Current Diet TF - Glucerna 1.2 at 42ml/hr Labs/Tests Reviewed Pertinent Medications Sucralfate Height 5 ft Weight 62.4 kg [place] Body Weight (kg) 45.45 BMI 26.9 Weight Status Appropriate Subjective/Other Information Observed TF infusing at goal rate. Pt remains on vent support. Trach/PEG placement pending. Percent of energy/protein needs met: 100% energy 81% pro Burn Absent Trauma Absent #1 Nutrition Diagnosis Inadequate oral intake Diagnosis Progress(for reassessment Continues documentation) Is patient on ventilator? Yes Is Patient Ambulatory and/or Out of Bed No REE-([facility]-confined to bed) [phone] Calculation Used for Recommendations [facility] Additional Notes Pro needs 1.2-2 g/k-125g/ day Fluid needs 1ml/kcal Nutrition Intervention Nutrition Support: Continue Glucerna 1.2 at 42ml/ hr with 75ml water flush q4h. Kcal 1,210 Protein (gm) 60 Carbohydrates (gm) 115 Fat (gm) 60 Fluid (mL) 811 Fiber (gm) 16 Goal #1 TF tolerance Goal #2 TF to meet at least 75% energy and pro needs Follow-Up By: 12/01/21 Additional Comments F/U: stable TF, trach/PEG placement, vent status, wt
[2021-11-28] MEDS ORDERED: MAGNESIUM SULFATE 4 GM/100 ML BAG IV ONE (18:00)
[2021-11-28] MEDS: PRAVASTATIN 20 MG TAB PO SCH (21:33)
[2021-11-28] MEDS ORDERED: NORepinephrine/NS 8 MG-250 ML 8 MG/250 ML INFUS..BTL IV ONE (23:11)
[2021-11-28] MEDS: NORepinephrine/NS 8 MG-250 ML 8 MG/250 ML INFUS..BTL IV SCH (23:15)
[2021-11-29] MEDS: INSULIN LISPRO 100 UNIT/ML SUB-Q SCH ×4 (00:11→18:33)
[2021-11-29 04:06] LABS: Hematocrit 25.8 % (30.3-42.9); Hemoglobin 8.2 gm/dl (10.1-14.3); Mean Corpuscular HGB Conc 32 % (30-34); Mean Corpuscular Volume 84 fl (79-97); Platelet Count 267 K/mm3 (140-440); Red Blood Count 3.05 M/mm3 (3.65-5.03)
[2021-11-29 04:11] LABS: Blood Urea Nitrogen 24 mg/dL (7-17); Calcium 7.4 mg/dL (8.4-10.2); Hemolysis Index 2
[2021-11-29 04:32] LABS: BUN/Creatinine Ratio 40
[2021-11-29 04:44] LABS: Red Cell Distribution Width 20.9 % (13.2-15.2)
[2021-11-29] MEDS: LEVOTHYROXINE 125 MCG TAB PO SCH (06:20)
[2021-11-29] MEDS ORDERED: MORPHINE 2 MG/1 ML INJ ONE (09:39)
[2021-11-29] MEDS ORDERED: MORPHINE 2 MG/1 ML INJ IV ONE (09:50)
[2021-11-29] MEDS: SENNOSIDES ORAL LIQD 8.8 MG/5 ML ORAL LIQD PO SCH ×2 (09:53→22:11)
[2021-11-29] MEDS: SIMETHICONE 80 MG CHEW TAB PO SCH ×2 (09:54→14:51)
[2021-11-29] MEDS: SUCRALFATE 1 GM/10 ML ORAL LIQD PO SCH ×4 (09:55→22:10)
[2021-11-29] MEDS: fentaNYL 25 MCG/HR PATCH 72HR TD SCH (09:55)
[2021-11-29] MEDS: HYDROcodone/ACETAMINOPHEN 10-325MG TAB FEEDTUBE SCH ×3 (09:56→20:22)
[2021-11-29] MEDS: METOPROLOL TARTRATE 25 MG TAB PO SCH ×2 (09:56→22:58)
[2021-11-29] MEDS: QUEtiapine 25 MG TAB PO SCH ×2 (09:56→22:10)
[2021-11-29] MEDS: LANSOPRAZOLE 30 MG SOLUTAB FEEDTUBE SCH ×2 (09:56→22:11)
[2021-11-29] MEDS: FUROSEMIDE 20 MG/2 ML INJ IV SCH (09:56)
[2021-11-29] MEDS: busPIRone 5 MG TAB PO SCH ×2 (09:57→22:10)
--- NOTE | 2021-11-29 13:11 | Progress Note ---
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 - 12 leag EKG without STEMI - get Troponin level - get CXR and address re: chest pain - continue daily SAT and SBT assessment as tolerated meanwhile - LTAC evaluation ongoing - no new issues otherwise, continue care as below; - prn Levophed for target MAP > 65 mmHg - continue to wean supplemental oxygen for target O2 sat's > 90% acutely - VAP bundle addressed - continue lung protective strategies - continue bronchodilators with routine trach care and pulmonary hygiene per RT - wean per pulmonary driven protocols otherwise - avoid nephrotoxins, renally dose all medications - continue accuchecks with glycemic control per SSI (While critically ill target blood glucose of 140-180 mg/dL; avoid hypoglycemia) - sedation prn for target RASS 0 to -1 - antibiotics per ID recommendations - continue to avoid benzodiazepine's, reduce the possibility of delirium - prn analgesia per CPOT score - Maintenance of sleep-wake cycle, avoid delirium - continue enteral nutritional support at goal rate as tolerated - G.I. & VTE prophylaxis - PT/OT/ROM exercises - continue mobility protocols for pressure ulcer prophylaxis - Monitor hemodynamics closely - continue other care per attending / other consultants - discharge planning ongoing concurrently COVID SPECIFIC INTERVENTIONS - COVID-19 PCR negative .... Re-evaluate in am & prn CONDITION: CRITICAL PROGNOSIS: GUARDED CODE STATUS: FULL CODE The high probability of a clinically significant, sudden or life-threatening deterioration of the [respiratory, cardiovascular & neurologic] system(s) required my full and direct attention, intervention and personal management. The aggregate critical care time was [33] minutes without overlap. Time includes spent on; [x] Data Review and interpretation [x] Patient assessment and monitoring of vital signs [x] Documentation [x] Medication orders and management Subjective Date of service: 11/29/21 Principal diagnosis: Septic shock; AHRF; Anemia; Pneumonia; L. pleural effusion; HFrEF; Pulm HTN Interval history: Patient is seen today for: Septic shock; Acute hypoxemic respiratory failure; An emia; Bilateral pneumonia; Left pleural effusion; HFrEF 30-35%; Pulm HTN RVSP 49 Seen and examined at bedside; 24hour events reviewed; nursing and respiratory care staff consulted; no adverse overnight events reported to me; resting in bed; remains on MVS; started on Levophed overnight but weaning off; continues to fail SBT's; complained of chest pain earlier; denies N/V/F/C Objective Vital Signs - 12hr 11/29/21 11/29/21 11/29/21 01:15 01:31 01:45 Temperature Pulse Rate 64 69 68 Pulse Rate [ From Monitor] Respiratory 14 14 14 Rate Blood Pressure 110/47 109/47 106/48 O2 Sat by Pulse 100 100 100 Oximetry O2 Sat by Pulse Oximetry [ Assessment] 11/29/21 11/29/21 11/29/21 02:00 02:15 02:30 Temperature Pulse Rate 73 76 71 Pulse Rate [ From Monitor] Respiratory 17 18 12 Rate Blood Pressure 115/51 116/54 110/48 O2 Sat by Pulse 100 100 100 Oximetry O2 Sat by Pulse Oximetry [ Assessment] 11/29/21 11/29/21 11/29/21 02:45 03:00 03:15 Temperature Pulse Rate 74 70 68 Pulse Rate [ From Monitor] Respiratory 14 13 14 Rate Blood Pressure 118/52 108/47 106/46 O2 Sat by Pulse 100 100 100 Oximetry O2 Sat by Pulse Oximetry [ Assessment] 11/29/21 11/29/21 11/29/21 03:30 03:45 04:00 Temperature 99.2 F Pulse Rate 69 71 73 Pulse Rate [ 70 From Monitor] Respiratory 14 12 13 Rate Blood Pressure 103/52 109/50 106/53 O2 Sat by Pulse 100 100 100 Oximetry O2 Sat by Pulse Oximetry [ Assessment] 11/29/21 11/29/21 11/29/21 04:15 04:30 04:45 Temperature Pulse Rate 72 69 72 Pulse Rate [ From Monitor] Respiratory 15 14 14 Rate Blood Pressure 101/56 123/53 128/55 O2 Sat by Pulse 100 100 100 Oximetry O2 Sat by Pulse Oximetry [ Assessment] 11/29/21 11/29/21 11/29/21 05:00 05:15 05:30 Temperature Pulse Rate 71 77 69 Pulse Rate [ From Monitor] Respiratory 14 15 14 Rate Blood Pressure 128/55 131/59 123/51 O2 Sat by Pulse 100 100 100 Oximetry O2 Sat by Pulse Oximetry [ Assessment] 11/29/21 11/29/21 11/29/21 05:45 06:00 06:15 Temperature Pulse Rate 72 70 70 Pulse Rate [ From Monitor] Respiratory 14 14 14 Rate Blood Pressure 126/53 123/51 126/54 O2 Sat by Pulse 100 100 100 Oximetry O2 Sat by Pulse Oximetry [ Assessment] 11/29/21 11/29/21 11/29/21 06:30 06:45 07:00 Temperature Pulse Rate 71 69 72 Pulse Rate [ From Monitor] Respiratory 14 14 14 Rate Blood Pressure 119/52 120/50 122/52 O2 Sat by Pulse 100 100 100 Oximetry O2 Sat by Pulse Oximetry [ Assessment] 11/29/21 11/29/21 11/29/21 07:15 07:30 07:45 Temperature Pulse Rate 70 73 72 Pulse Rate [ From Monitor] Respiratory 14 14 12 Rate Blood Pressure 121/52 123/54 118/54 O2 Sat by Pulse 100 100 100 Oximetry O2 Sat by Pulse Oximetry [ Assessment] 11/29/21 11/29/21 11/29/21 08:00 08:10 08:15 Temperature 98.8 F Pulse Rate 69 78 Pulse Rate [ From Monitor] Respiratory 14 14 Rate Blood Pressure 119/50 124/54 124/54 O2 Sat by Pulse 100 100 100 Oximetry O2 Sat by Pulse 100 Oximetry [ Assessment] 11/29/21 11/29/21 11/29/21 08:30 08:45 09:00 Temperature Pulse Rate 79 81 84 Pulse Rate [ From Monitor] Respiratory 14 18 24 Rate Blood Pressure 127/61 131/61 138/62 O2 Sat by Pulse 100 100 100 Oximetry O2 Sat by Pulse Oximetry [ Assessment] 11/29/21 11/29/21 11/29/21 09:16 09:30 09:45 Temperature Pulse Rate 93 H 89 Pulse Rate [ From Monitor] Respiratory 14 20 Rate Blood Pressure 138/62 122/62 140/55 O2 Sat by Pulse 100 100 Oximetry O2 Sat by Pulse Oximetry [ Assessment] 11/29/21 11/29/21 11/29/21 09:56 10:00 10:15 Temperature Pulse Rate 82 82 85 Pulse Rate [ From Monitor] Respiratory 14 14 Rate Blood Pressure 140/55 128/58 129/57 O2 Sat by Pulse Oximetry O2 Sat by Pulse Oximetry [ Assessment] 11/29/21 11/29/21 11/29/21 10:30 10:45 11:00 Temperature Pulse Rate 84 80 77 Pulse Rate [ From Monitor] Respiratory 10 L 17 15 Rate Blood Pressure 129/60 120/49 110/51 O2 Sat by Pulse 100 Oximetry O2 Sat by Pulse Oximetry [ Assessment] 11/29/21 11/29/21 11/29/21 11:15 11:30 11:45 Temperature Pulse Rate 73 70 70 Pulse Rate [ From Monitor] Respiratory 17 23 17 Rate Blood Pressure 108/45 104/42 105/45 O2 Sat by Pulse 100 100 100 Oximetry O2 Sat by Pulse Oximetry [ Assessment] 11/29/21 12:00 Temperature 98.6 F Pulse Rate 69 Pulse Rate [ From Monitor] Respiratory 27 H Rate Blood Pressure 110/47 O2 Sat by Pulse 100 Oximetry O2 Sat by Pulse Oximetry [ Assessment] Constitutional: appears uncomfortable, other (ETT to MVS, frail elderly woman with mildly increased respiratory effort at rest) Eyes: non-icteric ENT: oropharynx moist, oropharyngeal exudate pre (clear frothy), other (+ Midline tracheostomy) Neck: supple, no lymphadenopathy, no JVD Effort: mildly labored Ascultation: Bilateral: diminished breath sounds, rhonchi Percussion: Bilateral: not dull Cardiovascular: regular rate and rhythm, other (S1,S2) Gastrointestinal: normoactive bowel sounds, soft, non-tender, non-distended (protuberant) Integumentary: normal Extremities: no cyanosis, pink and warm, pulses normal, edema (upper etremities) Neurologic: non-focal exam (grossly), pupils equal and round, CN II-XII normal, other (sedated) Psychiatric: mood appropriate, affect normal CBC and BMP: 11/29/21 03:20 11/29/21 03:20 ABG, PT/INR, D-dimer: ABG ABG pH 7.449 pH Units (7.350-7.450) 11/21/21 16:00 ABG pCO2 32.1 mm Hg 11/21/21 16:00 ABG pO2 114.2 mm Hg (80.0-90.0) H 11/21/21 16:00 ABG O2 Saturation 98.3 % (95.0-99.0) 11/21/21 16:00 PT/INR, D-dimer PT 16.9 Sec. (12.2-14.9) H 11/26/21 05:00 INR 1.24 (0.87-1.13) H 11/26/21 05:00 D-Dimer 2655.00 ng/mlDDU (0-234) H 11/11/21 04:28 Abnormal lab findings: Abnormal Labs 11/03/21 11/03/21 11/03/21 22:32 22:32 22:32 WBC 29.3 H RBC 2.93 L Hgb 6.1 L Hct 21.9 L MCV 75 L MCH 21 L MCHC 28 L RDW 19.7 H Plt Count Seg Neuts % (Manual) 97.0 H Lymphocytes % (Manual) 3.0 L Seg Neutrophils # Man 28.4 H Lymphocytes # (Manual) 0.9 L Monocytes # (Manual) PT 18.6 H INR 1.40 H D-Dimer ABG pH ABG pO2 ABG HCO3 ABG O2 Saturation ABG Base Excess ABG Hemoglobin Oxyhemoglobin Sodium Potassium Chloride Carbon Dioxide 20 L BUN 33 H Glucose 119 H POC Glucose Lactic Acid Calcium 8.3 L Phosphorus Magnesium AST ALT Alkaline Phosphatase Lactate Dehydrogenase Troponin T 0.035 H C-Reactive Protein NT-Pro-B Natriuret Pep Total Protein Albumin LDL Cholesterol Direct 34 L Vitamin B12 Crossmatch 11/03/21 11/03/21 11/03/21 22:32 22:32 23:57 WBC RBC Hgb Hct MCV MCH MCHC RDW Plt Count Seg Neuts % (Manual) Lymphocytes % (Manual) Seg Neutrophils # Man Lymphocytes # (Manual) Monocytes # (Manual) PT INR D-Dimer ABG pH ABG pO2 ABG HCO3 ABG O2 Saturation ABG Base Excess ABG Hemoglobin Oxyhemoglobin Sodium Potassium Chloride Carbon Dioxide BUN Glucose POC Glucose Lactic Acid 3.70 H* Calcium Phosphorus Magnesium AST ALT Alkaline Phosphatase 139 H Lactate Dehydrogenase Troponin T C-Reactive Protein NT-Pro-B Natriuret Pep 7895 H Total Protein Albumin 3.5 L LDL Cholesterol Direct Vitamin B12 Crossmatch See Detail 11/04/21 11/04/21 11/05/21 00:59 13:58 00:51 WBC 27.9 H RBC 3.28 L Hgb 7.3 L Hct 25.5 L MCV 78 L MCH 22 L MCHC 29 L RDW 19.1 H Plt Count Seg Neuts % (Manual) 96.0 H Lymphocytes % (Manual) 2.0 L Seg Neutrophils # Man 26.8 H Lymphocytes # (Manual) 0.6 L Monocytes # (Manual) PT INR D-Dimer ABG pH ABG pO2 ABG HCO3 ABG O2 Saturation ABG Base Excess ABG Hemoglobin Oxyhemoglobin Sodium Potassium Chloride Carbon Dioxide BUN Glucose POC Glucose Lactic Acid Calcium Phosphorus Magnesium AST ALT Alkaline Phosphatase Lactate Dehydrogenase Troponin T 0.051 H D 0.032 H D C-Reactive Protein NT-Pro-B Natriuret Pep Total Protein Albumin LDL Cholesterol Direct Vitamin B12 Crossmatch 11/05/21 11/05/21 11/05/21 06:11 06:11 06:11 WBC 31.8 H RBC 3.57 L Hgb 8.0 L Hct 27.7 L MCV 78 L MCH 22 L MCHC 29 L RDW 19.2 H Plt Count Seg Neuts % (Manual) 91.0 H Lymphocytes % (Manual) 4.5 L Seg Neutrophils # Man 28.9 H Lymphocytes # (Manual) Monocytes # (Manual) 1.1 H PT INR D-Dimer 1494.53 H ABG pH ABG pO2 ABG HCO3 ABG O2 Saturation ABG Base Excess ABG Hemoglobin Oxyhemoglobin Sodium Potassium Chloride Carbon Dioxide 19 L BUN 42 H Glucose 115 H POC Glucose Lactic Acid Calcium Phosphorus Magnesium AST 43 H ALT Alkaline Phosphatase Lactate Dehydrogenase 187 H Troponin T C-Reactive Protein 22.20 H NT-Pro-B Natriuret Pep Total Protein 6.0 L Albumin 3.2 L LDL Cholesterol Direct Vitamin B12 Crossmatch 11/05/21 11/05/21 11/06/21 06:11 12:15 00:30 WBC RBC Hgb Hct MCV MCH MCHC RDW Plt Count Seg Neuts % (Manual) Lymphocytes % (Manual) Seg Neutrophils # Man Lymphocytes # (Manual) Monocytes # (Manual) PT INR D-Dimer ABG pH ABG pO2 ABG HCO3 ABG O2 Saturation ABG Base Excess ABG Hemoglobin Oxyhemoglobin Sodium Potassium Chloride Carbon Dioxide BUN Glucose POC Glucose 113 H 69 L Lactic Acid Calcium Phosphorus Magnesium AST ALT Alkaline Phosphatase Lactate Dehydrogenase Troponin T 0.033 H C-Reactive Protein NT-Pro-B Natriuret Pep Total Protein Albumin LDL Cholesterol Direct Vitamin B12 Crossmatch 11/06/21 11/06/21 11/06/21 05:50 15:50 15:50 WBC 25.5 H RBC 3.62 L Hgb 8.0 L Hct 27.5 L MCV 76 L MCH 22 L MCHC 29 L RDW 19.6 H Plt Count Seg Neuts % (Manual) 92.0 H Lymphocytes % (Manual) 5.0 L Seg Neutrophils # Man 23.5 H Lymphocytes # (Manual) Monocytes # (Manual) PT INR D-Dimer ABG pH 7.305 L ABG pO2 ABG HCO3 15.8 L ABG O2 Saturation ABG Base Excess -9.6 L ABG Hemoglobin 8.6 L Oxyhemoglobin 94.6 L Sodium Potassium Chloride 113.9 H Carbon Dioxide 17 L BUN 56 H Glucose 114 H POC Glucose Lactic Acid Calcium 7.9 L Phosphorus Magnesium AST 1410 H ALT 934 H Alkaline Phosphatase 142 H Lactate Dehydrogenase Troponin T C-Reactive Protein NT-Pro-B Natriuret Pep Total Protein 5.0 L Albumin 2.6 L LDL Cholesterol Direct Vitamin B12 Crossmatch 11/07/21 11/07/21 11/07/21 03:30 04:50 08:07 WBC RBC Hgb Hct MCV MCH MCHC RDW Plt Count Seg Neuts % (Manual) Lymphocytes % (Manual) Seg Neutrophils # Man Lymphocytes # (Manual) Monocytes # (Manual) PT INR D-Dimer ABG pH ABG pO2 296.9 H ABG HCO3 18.1 L ABG O2 Saturation 99.5 H ABG Base Excess -5.9 L ABG Hemoglobin 7.6 L Oxyhemoglobin Sodium Potassium Chloride Carbon Dioxide BUN Glucose POC Glucose 106 H 108 H Lactic Acid Calcium Phosphorus Magnesium AST ALT Alkaline Phosphatase Lactate Dehydrogenase Troponin T C-Reactive Protein NT-Pro-B Natriuret Pep Total Protein Albumin LDL Cholesterol Direct Vitamin B12 Crossmatch 11/08/21 11/08/21 11/08/21 03:10 18:05 23:43 WBC RBC Hgb Hct MCV MCH MCHC RDW Plt Count Seg Neuts % (Manual) Lymphocytes % (Manual) Seg Neutrophils # Man Lymphocytes # (Manual) Monocytes # (Manual) PT INR D-Dimer ABG pH ABG pO2 127.4 H ABG HCO3 ABG O2 Saturation ABG Base Excess -3.4 L ABG Hemoglobin 7.4 L Oxyhemoglobin Sodium Potassium Chloride Carbon Dioxide BUN Glucose POC Glucose 113 H 141 H Lactic Acid Calcium Phosphorus Magnesium AST ALT Alkaline Phosphatase Lactate Dehydrogenase Troponin T C-Reactive Protein NT-Pro-B Natriuret Pep Total Protein Albumin LDL Cholesterol Direct Vitamin B12 Crossmatch 11/08/21 11/08/21 11/09/21 Unknown Unknown 02:00 WBC 14.5 H RBC 3.35 L Hgb 7.5 L 8.1 L Hct 25.4 L 27.6 L MCV 76 L 76 L MCH 23 L 22 L MCHC RDW 19.9 H 19.9 H Plt Count Seg Neuts % (Manual) Lymphocytes % (Manual) Seg Neutrophils # Man Lymphocytes # (Manual) Monocytes # (Manual) PT INR D-Dimer ABG pH ABG pO2 ABG HCO3 ABG O2 Saturation ABG Base Excess ABG Hemoglobin Oxyhemoglobin Sodium 154 H D Potassium 3.3 L Chloride 120.7 H Carbon Dioxide 20 L BUN 38 H Glucose POC Glucose Lactic Acid Calcium 8.3 L Phosphorus Magnesium AST ALT Alkaline Phosphatase Lactate Dehydrogenase Troponin T C-Reactive Protein NT-Pro-B Natriuret Pep Total Protein Albumin LDL Cholesterol Direct Vitamin B12 Crossmatch 11/09/21 11/09/21 11/09/21 02:00 02:31 05:12 WBC RBC Hgb Hct MCV MCH MCHC RDW Plt Count Seg Neuts % (Manual) Lymphocytes % (Manual) Seg Neutrophils # Man Lymphocytes # (Manual) Monocytes # (Manual) PT INR D-Dimer ABG pH 7.479 H ABG pO2 121.3 H ABG HCO3 ABG O2 Saturation ABG Base Excess ABG Hemoglobin 7.3 L Oxyhemoglobin Sodium Potassium Chloride 112.5 H Carbon Dioxide BUN 33 H Glucose 161 H POC Glucose 135 H Lactic Acid Calcium Phosphorus Magnesium AST 251 H ALT 481 H Alkaline Phosphatase Lactate Dehydrogenase Troponin T C-Reactive Protein NT-Pro-B Natriuret Pep Total Protein 5.0 L Albumin 2.8 L LDL Cholesterol Direct Vitamin B12 Crossmatch 11/09/21 11/09/21 11/09/21 11:33 16:32 23:28 WBC RBC Hgb Hct MCV MCH MCHC RDW Plt Count Seg Neuts % (Manual) Lymphocytes % (Manual) Seg Neutrophils # Man Lymphocytes # (Manual) Monocytes # (Manual) PT INR D-Dimer ABG pH ABG pO2 ABG HCO3 ABG O2 Saturation ABG Base Excess ABG Hemoglobin Oxyhemoglobin Sodium Potassium Chloride Carbon Dioxide BUN Glucose POC Glucose 132 H 133 H 143 H Lactic Acid Calcium Phosphorus Magnesium AST ALT Alkaline Phosphatase Lactate Dehydrogenase Troponin T C-Reactive Protein NT-Pro-B Natriuret Pep Total Protein Albumin LDL Cholesterol Direct Vitamin B12 Crossmatch 11/10/21 11/10/21 11/10/21 04:00 04:00 05:35 WBC 16.0 H RBC 3.61 L Hgb 8.0 L Hct 27.1 L MCV 75 L MCH 22 L MCHC RDW 20.4 H Plt Count Seg Neuts % (Manual) Lymphocytes % (Manual) Seg Neutrophils # Man Lymphocytes # (Manual) Monocytes # (Manual) PT INR D-Dimer ABG pH ABG pO2 ABG HCO3 ABG O2 Saturation ABG Base Excess ABG Hemoglobin Oxyhemoglobin Sodium 149 H Potassium Chloride 114.1 H Carbon Dioxide BUN 31 H Glucose 148 H POC Glucose 132 H Lactic Acid Calcium 8.2 L Phosphorus Magnesium AST ALT Alkaline Phosphatase Lactate Dehydrogenase Troponin T C-Reactive Protein NT-Pro-B Natriuret Pep Total Protein Albumin LDL Cholesterol Direct Vitamin B12 Crossmatch 11/10/21 11/10/21 11/10/21 11:31 14:08 15:35 WBC RBC Hgb Hct MCV MCH MCHC RDW Plt Count Seg Neuts % (Manual) Lymphocytes % (Manual) Seg Neutrophils # Man Lymphocytes # (Manual) Monocytes # (Manual) PT INR D-Dimer ABG pH ABG pO2 126.6 H ABG HCO3 ABG O2 Saturation ABG Base Excess ABG Hemoglobin 7.4 L Oxyhemoglobin Sodium Potassium Chloride Carbon Dioxide BUN Glucose POC Glucose 147 H Lactic Acid Calcium Phosphorus Magnesium AST ALT Alkaline Phosphatase Lactate Dehydrogenase Troponin T C-Reactive Protein NT-Pro-B Natriuret Pep Total Protein Albumin LDL Cholesterol Direct Vitamin B12 1823 H Crossmatch 11/10/21 11/11/21 11/11/21 17:53 00:55 04:28 WBC RBC Hgb Hct MCV MCH MCHC RDW Plt Count Seg Neuts % (Manual) Lymphocytes % (Manual) Seg Neutrophils # Man Lymphocytes # (Manual) Monocytes # (Manual) PT INR D-Dimer ABG pH ABG pO2 ABG HCO3 ABG O2 Saturation ABG Base Excess ABG Hemoglobin Oxyhemoglobin Sodium 149 H Potassium Chloride 112.2 H Carbon Dioxide BUN 34 H Glucose 148 H POC Glucose 140 H 145 H Lactic Acid Calcium 7.9 L Phosphorus Magnesium AST 53 H ALT 203 H Alkaline Phosphatase Lactate Dehydrogenase Troponin T C-Reactive Protein NT-Pro-B Natriuret Pep Total Protein 4.9 L Albumin 2.6 L LDL Cholesterol Direct Vitamin B12 Crossmatch 11/11/21 11/11/21 11/11/21 04:28 04:28 05:28 WBC 20.9 H RBC 3.47 L Hgb 7.5 L Hct 26.0 L MCV 75 L MCH 22 L MCHC 29 L RDW 21.6 H Plt Count 132 L Seg Neuts % (Manual) Lymphocytes % (Manual) Seg Neutrophils # Man Lymphocytes # (Manual) Monocytes # (Manual) PT INR D-Dimer 2655.00 H ABG pH ABG pO2 ABG HCO3 ABG O2 Saturation ABG Base Excess ABG Hemoglobin Oxyhemoglobin Sodium Potassium Chloride Carbon Dioxide BUN Glucose POC Glucose 154 H Lactic Acid Calcium Phosphorus Magnesium AST ALT Alkaline Phosphatase Lactate Dehydrogenase Troponin T C-Reactive Protein NT-Pro-B Natriuret Pep Total Protein Albumin LDL Cholesterol Direct Vitamin B12 Crossmatch 11/11/21 11/11/21 11/12/21 12:38 18:13 00:14 WBC RBC Hgb Hct MCV MCH MCHC RDW Plt Count Seg Neuts % (Manual) Lymphocytes % (Manual) Seg Neutrophils # Man Lymphocytes # (Manual) Monocytes # (Manual) PT INR D-Dimer ABG pH ABG pO2 ABG HCO3 ABG O2 Saturation ABG Base Excess ABG Hemoglobin Oxyhemoglobin Sodium Potassium Chloride Carbon Dioxide BUN Glucose POC Glucose 137 H 108 H 137 H Lactic Acid Calcium Phosphorus Magnesium AST ALT Alkaline Phosphatase Lactate Dehydrogenase Troponin T C-Reactive Protein NT-Pro-B Natriuret Pep Total Protein Albumin LDL Cholesterol Direct Vitamin B12 Crossmatch 11/12/21 11/12/21 11/12/21 05:40 06:24 11:12 WBC RBC Hgb Hct MCV MCH MCHC RDW Plt Count Seg Neuts % (Manual) Lymphocytes % (Manual) Seg Neutrophils # Man Lymphocytes # (Manual) Monocytes # (Manual) PT INR D-Dimer ABG pH 7.586 H ABG pO2 150.6 H ABG HCO3 27.2 H ABG O2 Saturation 99.1 H ABG Base Excess 5.2 H ABG Hemoglobin 7.5 L Oxyhemoglobin Sodium Potassium Chloride Carbon Dioxide BUN Glucose POC Glucose 132 H 140 H Lactic Acid Calcium Phosphorus Magnesium AST ALT Alkaline Phosphatase Lactate Dehydrogenase Troponin T C-Reactive Protein NT-Pro-B Natriuret Pep Total Protein Albumin LDL Cholesterol Direct Vitamin B12 Crossmatch 11/12/21 11/12/21 11/12/21 14:50 14:50 17:13 WBC 19.8 H RBC 3.27 L Hgb 7.1 L Hct 24.5 L MCV 75 L MCH 22 L MCHC 29 L RDW 22.3 H Plt Count Seg Neuts % (Manual) Lymphocytes % (Manual) Seg Neutrophils # Man Lymphocytes # (Manual) Monocytes # (Manual) PT INR D-Dimer ABG pH ABG pO2 ABG HCO3 ABG O2 Saturation ABG Base Excess ABG Hemoglobin Oxyhemoglobin Sodium 150 H Potassium 3.3 L Chloride 112.0 H Carbon Dioxide BUN 40 H Glucose 151 H POC Glucose 121 H Lactic Acid Calcium 7.4 L Phosphorus 1.70 L Magnesium 1.40 L AST ALT Alkaline Phosphatase Lactate Dehydrogenase Troponin T C-Reactive Protein NT-Pro-B Natriuret Pep Total Protein Albumin LDL Cholesterol Direct Vitamin B12 Crossmatch 11/12/21 11/13/21 11/13/21 23:19 05:34 06:30 WBC RBC Hgb Hct MCV MCH MCHC RDW Plt Count Seg Neuts % (Manual) Lymphocytes % (Manual) Seg Neutrophils # Man Lymphocytes # (Manual) Monocytes # (Manual) PT INR D-Dimer ABG pH ABG pO2 ABG HCO3 ABG O2 Saturation ABG Base Excess ABG Hemoglobin Oxyhemoglobin Sodium 149 H Potassium Chloride 60.0 L Carbon Dioxide BUN 40 H Glucose 146 H POC Glucose 113 H 132 H Lactic Acid Calcium 7.3 L Phosphorus Magnesium 2.40 H AST ALT 72 H Alkaline Phosphatase Lactate Dehydrogenase Troponin T C-Reactive Protein NT-Pro-B Natriuret Pep Total Protein 5.2 L Albumin 2.2 L LDL Cholesterol Direct Vitamin B12 Crossmatch 11/13/21 11/13/21 11/13/21 06:30 08:30 11:19 WBC 21.2 H RBC 3.12 L Hgb 6.8 L Hct 23.2 L MCV 74 L MCH 22 L MCHC 29 L RDW 22.2 H Plt Count 135 L Seg Neuts % (Manual) Lymphocytes % (Manual) Seg Neutrophils # Man Lymphocytes # (Manual) Monocytes # (Manual) PT INR D-Dimer ABG pH ABG pO2 ABG HCO3 ABG O2 Saturation ABG Base Excess ABG Hemoglobin Oxyhemoglobin Sodium Potassium Chloride Carbon Dioxide BUN Glucose POC Glucose 136 H Lactic Acid Calcium Phosphorus Magnesium AST ALT Alkaline Phosphatase Lactate Dehydrogenase Troponin T C-Reactive Protein NT-Pro-B Natriuret Pep Total Protein Albumin LDL Cholesterol Direct Vitamin B12 Crossmatch See Detail 11/13/21 11/14/21 11/14/21 18:21 00:01 04:46 WBC 20.0 H RBC 3.41 L Hgb 7.9 L Hct 26.8 L MCV MCH 23 L MCHC 29 L RDW 24.0 H Plt Count Seg Neuts % (Manual) Lymphocytes % (Manual) Seg Neutrophils # Man Lymphocytes # (Manual) Monocytes # (Manual) PT INR D-Dimer ABG pH ABG pO2 ABG HCO3 ABG O2 Saturation ABG Base Excess ABG Hemoglobin Oxyhemoglobin Sodium Potassium Chloride Carbon Dioxide BUN Glucose POC Glucose 149 H 141 H Lactic Acid Calcium Phosphorus Magnesium AST ALT Alkaline Phosphatase Lactate Dehydrogenase Troponin T C-Reactive Protein NT-Pro-B Natriuret Pep Total Protein Albumin LDL Cholesterol Direct Vitamin B12 Crossmatch 11/14/21 11/14/21 11/14/21 04:46 05:10 11:10 WBC RBC Hgb Hct MCV MCH MCHC RDW Plt Count Seg Neuts % (Manual) Lymphocytes % (Manual) Seg Neutrophils # Man Lymphocytes # (Manual) Monocytes # (Manual) PT INR D-Dimer ABG pH ABG pO2 ABG HCO3 ABG O2 Saturation ABG Base Excess ABG Hemoglobin Oxyhemoglobin Sodium 148 H Potassium Chloride 113.1 H Carbon Dioxide BUN 43 H Glucose 140 H POC Glucose 132 H 133 H Lactic Acid Calcium 7.5 L Phosphorus Magnesium AST ALT Alkaline Phosphatase Lactate Dehydrogenase Troponin T C-Reactive Protein NT-Pro-B Natriuret Pep Total Protein Albumin LDL Cholesterol Direct Vitamin B12 Crossmatch 11/14/21 11/14/21 11/14/21 16:14 17:48 23:23 WBC RBC Hgb Hct MCV MCH MCHC RDW Plt Count Seg Neuts % (Manual) Lymphocytes % (Manual) Seg Neutrophils # Man Lymphocytes # (Manual) Monocytes # (Manual) PT INR D-Dimer ABG pH ABG pO2 ABG HCO3 28.0 H ABG O2 Saturation ABG Base Excess 3.1 H ABG Hemoglobin 5.8 L Oxyhemoglobin 94.8 L Sodium Potassium Chloride Carbon Dioxide BUN Glucose POC Glucose 130 H 136 H Lactic Acid Calcium Phosphorus Magnesium AST ALT Alkaline Phosphatase Lactate Dehydrogenase Troponin T C-Reactive Protein NT-Pro-B Natriuret Pep Total Protein Albumin LDL Cholesterol Direct Vitamin B12 Crossmatch 11/15/21 11/15/21 11/15/21 05:20 05:50 05:50 WBC 19.9 H RBC 3.50 L Hgb 8.2 L Hct 27.9 L MCV MCH 23 L MCHC 29 L RDW 24.9 H Plt Count Seg Neuts % (Manual) Lymphocytes % (Manual) Seg Neutrophils # Man Lymphocytes # (Manual) Monocytes # (Manual) PT INR D-Dimer ABG pH ABG pO2 ABG HCO3 ABG O2 Saturation ABG Base Excess ABG Hemoglobin Oxyhemoglobin Sodium 149 H Potassium Chloride 112.0 H Carbon Dioxide BUN 48 H Glucose 152 H POC Glucose 137 H Lactic Acid Calcium 7.9 L Phosphorus Magnesium AST ALT Alkaline Phosphatase Lactate Dehydrogenase Troponin T C-Reactive Protein NT-Pro-B Natriuret Pep Total Protein Albumin LDL Cholesterol Direct Vitamin B12 Crossmatch 11/15/21 11/15/21 11/15/21 12:12 17:07 23:24 WBC RBC Hgb Hct MCV MCH MCHC RDW Plt Count Seg Neuts % (Manual) Lymphocytes % (Manual) Seg Neutrophils # Man Lymphocytes # (Manual) Monocytes # (Manual) PT INR D-Dimer ABG pH ABG pO2 ABG HCO3 ABG O2 Saturation ABG Base Excess ABG Hemoglobin Oxyhemoglobin Sodium Potassium Chloride Carbon Dioxide BUN Glucose POC Glucose 114 H 135 H 123 H Lactic Acid Calcium Phosphorus Magnesium AST ALT Alkaline Phosphatase Lactate Dehydrogenase Troponin T C-Reactive Protein NT-Pro-B Natriuret Pep Total Protein Albumin LDL Cholesterol Direct Vitamin B12 Crossmatch 11/16/21 11/16/21 11/16/21 05:21 10:00 10:00 WBC 21.7 H RBC 2.57 L Hgb 6.0 L Hct 20.2 L D MCV MCH 24 L MCHC RDW 26.3 H Plt Count Seg Neuts % (Manual) Lymphocytes % (Manual) Seg Neutrophils # Man Lymphocytes # (Manual) Monocytes # (Manual) PT INR D-Dimer ABG pH ABG pO2 ABG HCO3 ABG O2 Saturation ABG Base Excess ABG Hemoglobin Oxyhemoglobin Sodium 153 H Potassium Chloride 114.9 H Carbon Dioxide BUN 74 H Glucose 155 H POC Glucose 127 H Lactic Acid Calcium 8.1 L Phosphorus Magnesium AST ALT Alkaline Phosphatase Lactate Dehydrogenase Troponin T C-Reactive Protein NT-Pro-B Natriuret Pep Total Protein Albumin LDL Cholesterol Direct Vitamin B12 Crossmatch 11/16/21 11/16/21 11/16/21 11:34 14:00 15:25 WBC 17.2 H RBC 2.08 L Hgb 4.7 L* Hct 16.2 L* MCV 78 L MCH 23 L MCHC 29 L RDW 26.0 H Plt Count Seg Neuts % (Manual) 87.0 H Lymphocytes % (Manual) 8.0 L Seg Neutrophils # Man 15.0 H Lymphocytes # (Manual) Monocytes # (Manual) 0.9 H PT INR D-Dimer ABG pH ABG pO2 ABG HCO3 ABG O2 Saturation ABG Base Excess ABG Hemoglobin Oxyhemoglobin Sodium Potassium Chloride Carbon Dioxide BUN Glucose POC Glucose 131 H Lactic Acid Calcium Phosphorus Magnesium AST ALT Alkaline Phosphatase Lactate Dehydrogenase Troponin T C-Reactive Protein NT-Pro-B Natriuret Pep Total Protein Albumin LDL Cholesterol Direct Vitamin B12 Crossmatch See Detail 11/16/21 11/16/21 11/16/21 15:25 17:21 22:43 WBC RBC Hgb 8.6 L D Hct 27.7 L D MCV MCH MCHC RDW Plt Count Seg Neuts % (Manual) Lymphocytes % (Manual) Seg Neutrophils # Man Lymphocytes # (Manual) Monocytes # (Manual) PT INR D-Dimer ABG pH ABG pO2 ABG HCO3 ABG O2 Saturation ABG Base Excess ABG Hemoglobin Oxyhemoglobin Sodium 148 H Potassium Chloride 113.2 H Carbon Dioxide BUN 84 H Glucose 164 H POC Glucose 124 H Lactic Acid Calcium 7.6 L Phosphorus Magnesium AST ALT Alkaline Phosphatase Lactate Dehydrogenase Troponin T C-Reactive Protein NT-Pro-B Natriuret Pep Total Protein Albumin LDL Cholesterol Direct Vitamin B12 Crossmatch 11/16/21 11/17/21 11/17/21 23:07 05:33 05:56 WBC 25.1 H RBC 3.47 L Hgb 8.7 L Hct 28.5 L MCV MCH 25 L MCHC RDW 22.3 H Plt Count Seg Neuts % (Manual) Lymphocytes % (Manual) Seg Neutrophils # Man Lymphocytes # (Manual) Monocytes # (Manual) PT INR D-Dimer ABG pH ABG pO2 ABG HCO3 ABG O2 Saturation ABG Base Excess ABG Hemoglobin Oxyhemoglobin Sodium Potassium Chloride Carbon Dioxide BUN Glucose POC Glucose 128 H 133 H Lactic Acid Calcium Phosphorus Magnesium AST ALT Alkaline Phosphatase Lactate Dehydrogenase Troponin T C-Reactive Protein NT-Pro-B Natriuret Pep Total Protein Albumin LDL Cholesterol Direct Vitamin B12 Crossmatch 11/17/21 11/17/21 11/17/21 05:56 11:00 11:55 WBC RBC Hgb 8.3 L Hct 26.9 L MCV MCH MCHC RDW Plt Count Seg Neuts % (Manual) Lymphocytes % (Manual) Seg Neutrophils # Man Lymphocytes # (Manual) Monocytes # (Manual) PT INR D-Dimer ABG pH ABG pO2 ABG HCO3 ABG O2 Saturation ABG Base Excess ABG Hemoglobin Oxyhemoglobin Sodium 151 H Potassium Chloride 113.6 H Carbon Dioxide BUN 85 H Glucose 132 H POC Glucose 121 H Lactic Acid Calcium 7.8 L Phosphorus Magnesium AST ALT Alkaline Phosphatase Lactate Dehydrogenase Troponin T C-Reactive Protein NT-Pro-B Natriuret Pep Total Protein 5.1 L Albumin 2.2 L LDL Cholesterol Direct Vitamin B12 Crossmatch 11/17/21 11/17/21 11/18/21 18:04 18:55 00:26 WBC RBC Hgb 7.5 L 7.1 L Hct 24.8 L 23.6 L MCV MCH MCHC RDW Plt Count Seg Neuts % (Manual) Lymphocytes % (Manual) Seg Neutrophils # Man Lymphocytes # (Manual) Monocytes # (Manual) PT INR D-Dimer ABG pH ABG pO2 ABG HCO3 ABG O2 Saturation ABG Base Excess ABG Hemoglobin Oxyhemoglobin Sodium Potassium Chloride Carbon Dioxide BUN Glucose POC Glucose 144 H Lactic Acid Calcium Phosphorus Magnesium AST ALT Alkaline Phosphatase Lactate Dehydrogenase Troponin T C-Reactive Protein NT-Pro-B Natriuret Pep Total Protein Albumin LDL Cholesterol Direct Vitamin B12 Crossmatch 11/18/21 11/18/21 11/18/21 00:43 05:10 05:10 WBC 12.5 H RBC 2.39 L Hgb 6.1 L Hct 20.2 L MCV MCH 25 L MCHC RDW 23.2 H Plt Count Seg Neuts % (Manual) Lymphocytes % (Manual) Seg Neutrophils # Man Lymphocytes # (Manual) Monocytes # (Manual) PT INR D-Dimer ABG pH ABG pO2 ABG HCO3 ABG O2 Saturation ABG Base Excess ABG Hemoglobin Oxyhemoglobin Sodium 131 L D Potassium 2.9 L* D Chloride 97.8 L Carbon Dioxide BUN 58 H Glucose 665 H* POC Glucose 139 H Lactic Acid Calcium 7.0 L Phosphorus 2.20 L D Magnesium 1.50 L AST ALT Alkaline Phosphatase Lactate Dehydrogenase Troponin T C-Reactive Protein NT-Pro-B Natriuret Pep Total Protein Albumin LDL Cholesterol Direct Vitamin B12 Crossmatch 11/18/21 11/18/21 11/18/21 05:23 07:10 10:45 WBC RBC Hgb Hct MCV MCH MCHC RDW Plt Count Seg Neuts % (Manual) Lymphocytes % (Manual) Seg Neutrophils # Man Lymphocytes # (Manual) Monocytes # (Manual) PT INR D-Dimer ABG pH ABG pO2 ABG HCO3 ABG O2 Saturation ABG Base Excess ABG Hemoglobin Oxyhemoglobin Sodium 148 H D Potassium 3.1 L Chloride 111.9 H Carbon Dioxide BUN 63 H Glucose 141 H POC Glucose 124 H Lactic Acid Calcium 8.1 L D Phosphorus Magnesium AST ALT Alkaline Phosphatase Lactate Dehydrogenase Troponin T C-Reactive Protein NT-Pro-B Natriuret Pep Total Protein Albumin LDL Cholesterol Direct Vitamin B12 Crossmatch See Detail 11/18/21 11/19/21 11/19/21 11:57 00:19 04:55 WBC RBC 3.35 L Hgb 9.0 L 8.9 L Hct 28.3 L D 28.1 L MCV MCH 27 L MCHC RDW 20.3 H Plt Count Seg Neuts % (Manual) Lymphocytes % (Manual) Seg Neutrophils # Man Lymphocytes # (Manual) Monocytes # (Manual) PT INR D-Dimer ABG pH ABG pO2 ABG HCO3 ABG O2 Saturation ABG Base Excess ABG Hemoglobin Oxyhemoglobin Sodium Potassium Chloride Carbon Dioxide BUN Glucose POC Glucose 119 H Lactic Acid Calcium Phosphorus Magnesium AST ALT Alkaline Phosphatase Lactate Dehydrogenase Troponin T C-Reactive Protein NT-Pro-B Natriuret Pep Total Protein Albumin LDL Cholesterol Direct Vitamin B12 Crossmatch 11/19/21 11/19/21 11/20/21 04:55 05:42 00:55 WBC RBC Hgb 9.0 L Hct 28.6 L MCV MCH MCHC RDW Plt Count Seg Neuts % (Manual) Lymphocytes % (Manual) Seg Neutrophils # Man Lymphocytes # (Manual) Monocytes # (Manual) PT INR D-Dimer ABG pH ABG pO2 ABG HCO3 ABG O2 Saturation ABG Base Excess ABG Hemoglobin Oxyhemoglobin Sodium Potassium 3.5 L Chloride 108.6 H Carbon Dioxide BUN 47 H Glucose 207 H POC Glucose 63 L Lactic Acid Calcium 7.1 L Phosphorus Magnesium AST ALT Alkaline Phosphatase Lactate Dehydrogenase Troponin T C-Reactive Protein NT-Pro-B Natriuret Pep Total Protein Albumin LDL Cholesterol Direct Vitamin B12 Crossmatch 11/20/21 11/20/21 11/20/21 05:40 05:40 Unknown WBC RBC 3.40 L Hgb 9.1 L Hct 28.8 L MCV MCH 27 L MCHC RDW 20.7 H Plt Count Seg Neuts % (Manual) Lymphocytes % (Manual) Seg Neutrophils # Man Lymphocytes # (Manual) Monocytes # (Manual) PT INR D-Dimer ABG pH ABG pO2 ABG HCO3 ABG O2 Saturation ABG Base Excess -2.7 L ABG Hemoglobin 9.5 L Oxyhemoglobin 94.3 L Sodium Potassium 3.5 L Chloride 108.9 H Carbon Dioxide BUN 37 H Glucose 117 H POC Glucose Lactic Acid Calcium 7.5 L Phosphorus Magnesium AST ALT Alkaline Phosphatase Lactate Dehydrogenase Troponin T C-Reactive Protein NT-Pro-B Natriuret Pep Total Protein Albumin LDL Cholesterol Direct Vitamin B12 Crossmatch 11/21/21 11/21/21 11/21/21 04:30 04:30 16:00 WBC RBC 3.25 L Hgb 8.6 L Hct 28.1 L MCV MCH 26 L MCHC RDW 20.7 H Plt Count Seg Neuts % (Manual) Lymphocytes % (Manual) Seg Neutrophils # Man Lymphocytes # (Manual) Monocytes # (Manual) PT INR D-Dimer ABG pH ABG pO2 114.2 H ABG HCO3 ABG O2 Saturation ABG Base Excess ABG Hemoglobin 9.1 L Oxyhemoglobin Sodium 134 L Potassium Chloride Carbon Dioxide 20 L BUN 34 H Glucose POC Glucose Lactic Acid Calcium 7.1 L Phosphorus Magnesium AST ALT Alkaline Phosphatase Lactate Dehydrogenase Troponin T C-Reactive Protein NT-Pro-B Natriuret Pep Total Protein Albumin LDL Cholesterol Direct Vitamin B12 Crossmatch 11/22/21 11/22/21 11/22/21 07:07 07:07 23:54 WBC RBC 3.30 L Hgb 9.0 L Hct 28.5 L MCV MCH 27 L MCHC RDW 21.0 H Plt Count Seg Neuts % (Manual) Lymphocytes % (Manual) Seg Neutrophils # Man Lymphocytes # (Manual) Monocytes # (Manual) PT INR D-Dimer ABG pH ABG pO2 ABG HCO3 ABG O2 Saturation ABG Base Excess ABG Hemoglobin Oxyhemoglobin Sodium Potassium Chloride Carbon Dioxide BUN 32 H Glucose 106 H POC Glucose 110 H Lactic Acid Calcium 7.5 L Phosphorus Magnesium AST ALT Alkaline Phosphatase Lactate Dehydrogenase Troponin T C-Reactive Protein NT-Pro-B Natriuret Pep Total Protein Albumin LDL Cholesterol Direct Vitamin B12 Crossmatch 11/23/21 11/23/21 11/23/21 04:38 04:38 06:01 WBC RBC 3.23 L Hgb 8.8 L Hct 28.0 L MCV MCH 27 L MCHC RDW 21.3 H Plt Count Seg Neuts % (Manual) Lymphocytes % (Manual) Seg Neutrophils # Man Lymphocytes # (Manual) Monocytes # (Manual) PT INR D-Dimer ABG pH ABG pO2 ABG HCO3 ABG O2 Saturation ABG Base Excess ABG Hemoglobin Oxyhemoglobin Sodium 136 L Potassium Chloride Carbon Dioxide 20 L BUN 32 H Glucose 109 H POC Glucose 115 H Lactic Acid Calcium 7.7 L Phosphorus Magnesium AST ALT Alkaline Phosphatase Lactate Dehydrogenase Troponin T C-Reactive Protein NT-Pro-B Natriuret Pep Total Protein Albumin LDL Cholesterol Direct Vitamin B12 Crossmatch 11/23/21 11/24/21 11/24/21 11:40 00:03 04:13 WBC RBC 3.18 L Hgb 8.5 L Hct 27.5 L MCV MCH 27 L MCHC RDW 21.6 H Plt Count Seg Neuts % (Manual) Lymphocytes % (Manual) Seg Neutrophils # Man Lymphocytes # (Manual) Monocytes # (Manual) PT INR D-Dimer ABG pH ABG pO2 ABG HCO3 ABG O2 Saturation ABG Base Excess ABG Hemoglobin Oxyhemoglobin Sodium Potassium Chloride Carbon Dioxide BUN Glucose POC Glucose 117 H 111 H Lactic Acid Calcium Phosphorus Magnesium AST ALT Alkaline Phosphatase Lactate Dehydrogenase Troponin T C-Reactive Protein NT-Pro-B Natriuret Pep Total Protein Albumin LDL Cholesterol Direct Vitamin B12 Crossmatch 11/24/21 11/24/21 11/24/21 04:13 05:30 11:10 WBC RBC Hgb Hct MCV MCH MCHC RDW Plt Count Seg Neuts % (Manual) Lymphocytes % (Manual) Seg Neutrophils # Man Lymphocytes # (Manual) Monocytes # (Manual) PT INR D-Dimer ABG pH ABG pO2 ABG HCO3 ABG O2 Saturation ABG Base Excess ABG Hemoglobin Oxyhemoglobin Sodium Potassium Chloride Carbon Dioxide BUN 31 H Glucose 101 H POC Glucose 115 H 107 H Lactic Acid Calcium 7.7 L Phosphorus Magnesium AST ALT Alkaline Phosphatase Lactate Dehydrogenase Troponin T C-Reactive Protein NT-Pro-B Natriuret Pep Total Protein Albumin LDL Cholesterol Direct Vitamin B12 Crossmatch 11/24/21 11/24/21 11/25/21 16:34 17:57 05:12 WBC RBC 3.11 L Hgb 8.2 L Hct 26.6 L MCV MCH 26 L MCHC RDW 21.3 H Plt Count Seg Neuts % (Manual) Lymphocytes % (Manual) Seg Neutrophils # Man Lymphocytes # (Manual) Monocytes # (Manual) PT INR D-Dimer ABG pH ABG pO2 ABG HCO3 ABG O2 Saturation ABG Base Excess ABG Hemoglobin Oxyhemoglobin Sodium Potassium Chloride Carbon Dioxide BUN Glucose POC Glucose 115 H 110 H Lactic Acid Calcium Phosphorus Magnesium AST ALT Alkaline Phosphatase Lactate Dehydrogenase Troponin T C-Reactive Protein NT-Pro-B Natriuret Pep Total Protein Albumin LDL Cholesterol Direct Vitamin B12 Crossmatch 11/25/21 11/25/21 11/26/21 05:12 11:20 05:00 WBC RBC 3.30 L Hgb 8.8 L Hct 28.2 L MCV MCH 27 L MCHC RDW 20.7 H Plt Count Seg Neuts % (Manual) Lymphocytes % (Manual) Seg Neutrophils # Man Lymphocytes # (Manual) Monocytes # (Manual) PT INR D-Dimer ABG pH ABG pO2 ABG HCO3 ABG O2 Saturation ABG Base Excess ABG Hemoglobin Oxyhemoglobin Sodium Potassium Chloride Carbon Dioxide BUN 32 H Glucose 118 H POC Glucose 118 H Lactic Acid Calcium 8.2 L Phosphorus Magnesium AST ALT Alkaline Phosphatase Lactate Dehydrogenase Troponin T C-Reactive Protein NT-Pro-B Natriuret Pep Total Protein Albumin LDL Cholesterol Direct Vitamin B12 Crossmatch 11/26/21 11/26/21 11/26/21 05:00 05:00 05:44 WBC RBC Hgb Hct MCV MCH MCHC RDW Plt Count Seg Neuts % (Manual) Lymphocytes % (Manual) Seg Neutrophils # Man Lymphocytes # (Manual) Monocytes # (Manual) PT 16.9 H INR 1.24 H D-Dimer ABG pH ABG pO2 ABG HCO3 ABG O2 Saturation ABG Base Excess ABG Hemoglobin Oxyhemoglobin Sodium Potassium Chloride Carbon Dioxide BUN 31 H Glucose 104 H POC Glucose 110 H Lactic Acid Calcium 7.9 L Phosphorus Magnesium AST ALT Alkaline Phosphatase Lactate Dehydrogenase Troponin T C-Reactive Protein NT-Pro-B Natriuret Pep Total Protein Albumin LDL Cholesterol Direct Vitamin B12 Crossmatch 11/26/21 11/27/21 11/27/21 23:55 07:40 07:40 WBC RBC 3.18 L Hgb 8.5 L Hct 27.0 L MCV MCH 27 L MCHC RDW 21.2 H Plt Count Seg Neuts % (Manual) Lymphocytes % (Manual) Seg Neutrophils # Man Lymphocytes # (Manual) Monocytes # (Manual) PT INR D-Dimer ABG pH ABG pO2 ABG HCO3 ABG O2 Saturation ABG Base Excess ABG Hemoglobin Oxyhemoglobin Sodium Potassium Chloride Carbon Dioxide BUN 27 H Glucose 112 H POC Glucose 63 L Lactic Acid Calcium 7.6 L Phosphorus Magnesium AST ALT Alkaline Phosphatase Lactate Dehydrogenase Troponin T C-Reactive Protein NT-Pro-B Natriuret Pep Total Protein Albumin LDL Cholesterol Direct Vitamin B12 Crossmatch 11/27/21 11/27/21 11/27/21 12:04 13:40 13:40 WBC RBC 3.31 L Hgb 8.7 L Hct 28.0 L MCV MCH 26 L MCHC RDW 20.7 H Plt Count Seg Neuts % (Manual) Lymphocytes % (Manual) Seg Neutrophils # Man Lymphocytes # (Manual) Monocytes # (Manual) PT INR D-Dimer ABG pH ABG pO2 ABG HCO3 ABG O2 Saturation ABG Base Excess ABG Hemoglobin Oxyhemoglobin Sodium 136 L Potassium Chloride Carbon Dioxide BUN 25 H Glucose 127 H POC Glucose 109 H Lactic Acid Calcium 7.6 L Phosphorus Magnesium 1.40 L AST ALT Alkaline Phosphatase Lactate Dehydrogenase Troponin T C-Reactive Protein NT-Pro-B Natriuret Pep Total Protein Albumin LDL Cholesterol Direct Vitamin B12 Crossmatch 11/27/21 11/27/21 11/28/21 17:44 23:33 12:20 WBC RBC Hgb Hct MCV MCH MCHC RDW Plt Count Seg Neuts % (Manual) Lymphocytes % (Manual) Seg Neutrophils # Man Lymphocytes # (Manual) Monocytes # (Manual) PT INR D-Dimer ABG pH ABG pO2 ABG HCO3 ABG O2 Saturation ABG Base Excess ABG Hemoglobin Oxyhemoglobin Sodium Potassium Chloride Carbon Dioxide BUN Glucose POC Glucose 107 H 108 H 114 H Lactic Acid Calcium Phosphorus Magnesium AST ALT Alkaline Phosphatase Lactate Dehydrogenase Troponin T C-Reactive Protein NT-Pro-B Natriuret Pep Total Protein Albumin LDL Cholesterol Direct Vitamin B12 Crossmatch 11/29/21 11/29/21 11/29/21 00:09 03:20 03:20 WBC RBC 3.05 L Hgb 8.2 L Hct 25.8 L MCV MCH 27 L MCHC RDW 20.9 H Plt Count Seg Neuts % (Manual) Lymphocytes % (Manual) Seg Neutrophils # Man Lymphocytes # (Manual) Monocytes # (Manual) PT INR D-Dimer ABG pH ABG pO2 ABG HCO3 ABG O2 Saturation ABG Base Excess ABG Hemoglobin Oxyhemoglobin Sodium 133 L Potassium Chloride Carbon Dioxide BUN 24 H Glucose 137 H POC Glucose 134 H Lactic Acid Calcium 7.4 L Phosphorus Magnesium AST ALT Alkaline Phosphatase Lactate Dehydrogenase Troponin T C-Reactive Protein NT-Pro-B Natriuret Pep Total Protein Albumin LDL Cholesterol Direct Vitamin B12 Crossmatch 11/29/21 11/29/21 05:38 11:39 WBC RBC Hgb Hct MCV MCH MCHC RDW Plt Count Seg Neuts % (Manual) Lymphocytes % (Manual) Seg Neutrophils # Man Lymphocytes # (Manual) Monocytes # (Manual) PT INR D-Dimer ABG pH ABG pO2 ABG HCO3 ABG O2 Saturation ABG Base Excess ABG Hemoglobin Oxyhemoglobin Sodium Potassium Chloride Carbon Dioxide BUN Glucose POC Glucose 117 H 143 H Lactic Acid Calcium Phosphorus Magnesium AST ALT Alkaline Phosphatase Lactate Dehydrogenase Troponin T C-Reactive Protein NT-Pro-B Natriuret Pep Total Protein Albumin LDL Cholesterol Direct Vitamin B12 Crossmatch Allied health notes reviewed: nursing
--- NOTE | 2021-11-29 17:29 | Progress Note ---
Assessment and Plan Assessment and plan: This is a 81-year-old female with known history of diabetes mellitus, hypertension, PPM, and arthritis admitted for sepsis and acute hypoxia respiratory failure 2/2 bilateral pneumonia requiring intubation and ventilatory support Assessment and Plan Neuro : Acute encephalopathy -Neurology consulted, appreciate recommendations -CT brain showed no acute events -EEG interpreted as abnormal record due to diffuse slowing noted throughout the recording, suggestive of encephalopathic process and/or drug effect, possibilities of postictal state cannot be totally excluded. Clinical correlation is in order -MRI brain not obtained-> patient has metal in her body -Repeat CT head with no acute findings -Reorientation as needed -Ammonia 42, B12 1823, TSH 1.5 -BuSpar, fentanyl patch, Seroquel, [place] Cardio: Heart failure with reduced EF, h/o chronic heart block s/p PPM, HTN/CAD s/p PCI (2004) -vasopressor support with levophed -map goal >65 -11/04 echocardiogram shows EF 30 to 35% -Cardiology consulted, appreciate recommendations -Continue beta-charleen and statin therapy -Not on aspirin due to allergy -Blood pressure monitoring per protocol Resp: Acute hypoxic respiratory failure secondary to bilateral pneumonia, bilate ral pleural effusion. Right pneumothorax (resolved) -COVID-19 PCR negative -Intubated on 11/06 with 6.00 ETT at 18 at the lip and changed over bougie on 11/11-7.50 ETT at 20 at the lip -A.m. vent settings: Assist-control rate 14, tidal volume 400, PEEP 6, FiO2 30 % -See RT notes for titration -PSV today -Surgery consult for trach -Received trach/PEG on 11/26 -S/p bedside bronchoscopy on 11/11 complicated by pneumothorax -S/p chest tube placement for right pneumothorax and dislodgment by patient on 11/15 -ABG/CXR per CCM -VAP bundle -Right chest wall ultrasound showed pleural effusion s/p chest tube -SPO2 monitoring -Mucomyst every 8 -Albuterol every 8 GI: S/p GI bleed, duodenal ulcer,transaminitis -GI consulted, appreciate recommendations -Nutrition consult for tube feeding -BR: Senokot, MiraLAX -s/p peg trach 11/26 -H2 charleen -Carafate -24-hour +194 ml -BM 11/28 -Gastric occult positive : Urinary retention, hyponatremia -Gamble catheter in place -Strict intake and output -Trend BMP ID: Septic shock (POA), bilateral pneumonia, bacteremia -Infectious disease consulted, appreciate recommendations -COVID-19 PCR negative -Presented with fevers, leukocytosis and hypotension -11/04 blood cultures positive with a group B strep bacteremia however repeat blood cultures on the with no growth to date -Echo showed no evidence of vegetation -ABX therapy: Ceftriaxone (), vancomycin (11/05, ), clindamycin ), cefepime , ) -Monitor WBC and fever curve -Recultured on 11/11 with NGTD -Bedside bronchoscopy for mucous plug on CXR 11/11 Heme: Acute DVT in the right external iliac vein, common femoral vein, superior aspect of femoral vein, Acute microcytic anemia -Evidenced on bilateral upper lower extremity ultrasound -S/p 5 unit PRBC -Trend CBC -Transfuse for hemoglobin less than 7 -S/p IVC filter Endo: h/o DM and hypothyroidism -Continue home Synthroid -SSI -Accu-Cheks every 6 -Avoid hypoglycemia The high probability of a clinically significant, sudden or life threatening det erioration of the [multi] system(s) required my full and direct attention, intervention and personal management. The aggregate critical care time was [60] minutes. This time is in addition to time spent performing reported procedures but includes the following: [x] Data Review and interpretation [x] Patient assessment and monitoring of vital signs [x] Documentation [x] Medication orders and management Disposition Plan: icu Total Time Spent with Patient (Minutes): 60 History Interval history: This is an 82-year-old female with DM, HTN , PPM and arthritis who presented to the emergency department on 11/04 for shortness of breath ongoing for the past 3 days, cough and according to family a fever of 102.2. Upon arrival of EMS patient was found to be tachypneic and hypoxic with SPO2 of 76% on room air which later improved to 88% on nonrebreather. Work-up in the emergency department included a CXR which showed bilateral interstitial pulmonary edema with bilateral pleural effusions and bibasilar opacities, leukocytosis and anemia with a hemoglobin of 6.1. Patient was admitted to the hospitalist service with acute anemia, acute hypoxic respiratory failure, bilateral pneumonia and COVID-19 PUI with consults to pulmonology, infectious disease and later cardiology. Patient was eventually intubated in the emergency department on 11/06. Hospital Course to date: 11/04/2021: Empiric therapy with iv levaquin/vancomycin. COVID PCR pending. Will consult ID. PCCM consulted, will follow recs. Hypotensive this AM, ordered bolus and fluids at 150 cc/hr. May require pressor support if bp does not improve. 11/05/2021: GBS on bcx +, currently on rocephin IV. Currently on bipap due to respiratory distress overnight. Worsening BL opacities on CXR. May be volume overload vs pneumonia. Unfortunately bp too low for lasix at this point. WIll continue levophed and bipap. Once able to tolerate, may do trial of albumin/lasix. Call attempt made to Niraj, no response. Will try again tomorrow to update. 11/06/2021: Decompensated overnight requiring intubation. CXR shows worsening interstitial infiltrates. Currenlty on dopamine, levophed, vasopressin. PICC line ordered. Advised RN to place gamble for I/O monitoring. Would benefit from diuresis but very volume overloaded. Prognosis guarded 11/08: Off sedation this am, remains unresponsive only grimace to pain. Hold all sedatives agents for now, patient is off pressors this am. Hypernatremia from today's lab- D5W X1bag, and low K repleted, repeat lab in the am. Severe constipation also noted from KUB, BR added. 11/09: Sudden SPO2 drop in the 60s this am. Patient was manually bagged and deep suctioned. Patient is currently stable on the vent, repeat CXR with no significant change. D/w CCM Mucomyst and brochodilator added. Patient mentation is unchanged, continue to hold off on sedative agents. Neurology consulted. 11/10: Acute DVT noted on bilateral lower extremity Doppler ultrasound therefore she was started on Lovenox treatment dose. Failed SBT. Hypernatremia and hyperchloremia noted, free water flush adjusted. 11/11: Patient noted to be febrile with increasing of the cytosis, UA/BC sent and CXR ordered. ID escalated antibiotics to cefepime. CXR demonstrated mucous plug, bedside bronchoscopy was performed and O ETT was changed over bougie from 6 cm to 7.5. Patient was noted to have a pneumothorax postprocedure and chest tube was placed. Family updated by [facility]. Free water flush increased and will add Jaswant supplementation. 11/12: Patient not noted to follow commands, hypernatremia worsen/persist, increasing free water flush, potassium and magnesium and phosphorus repleted. Hemoglobin noted to be 7.1/24.5 from 7.03/12 yesterday. We will continue to trend and monitor. Vent changes per [facility]. Repeat CXR showed no residual pneumothorax. Consider waterseal tomorrow. Given persistent leukocytosis antib iotics escalated to cefepime per ID. 11/13: Remains on cefepime and vancomycin, vent changes per [facility]. Anemia noted and given 1 unit PRBC. And beta-charleen held in setting of Levophed drip infusing. Remains on fentanyl drip. 11/14: Patient put on CPAP trial by [facility], will continue chest tube until after extubation. Will rest on assist control. CT brain was cancelled by radiological defense officer and reordered. 11/15: Patient removed chest tube overnight. Will obtain cxr. remains on low dose levo. CTH completed with no acute findings. RT to place on CPAP. 11/16: Hypernatremia/hyperchloremia noted on the increase of day water flushes. Anemia noted and ordered PRBC. asked RT to place on cpap but not done yet 11/17: Patient remains on the vent, awake and following commands. H&H stable s/p 2units PRBCs. GI on consult, no intervention at this time. Will continue protonix gtt and serial H&H Q6hrs. Keep patient NPO for now, D5w added for hypernatremia and NPO status. Plan for IVC filter placement today by Vascular. 11/18: Patient is s/p IVC filter. H&H continue to trend down, hbg 6.1 this am, 1 unit of PRBCs ordered. Plan for possible EGD today by GI. Keep patient NPO, continue PPI drip and serial H&H Q6hrs. Electrolytes repleted, repeat lab in the am 11/19: S/p EGD- larger duodenal ulcer noted, see operative note. GI recommendations noted also noted. H&H stable this am. Keep patient on protonix gtt for now. Will keep patient NPO, continue IVF and serial H&H for now. Electrolytes repleted, repeat labs in the am 11/20: Very agitated and restless this am, fentanyl gtt resumed. Patient remains on protonix gtt, H&H remains stable. Will switch protonix gtt to IV BID, continue carafate and okay to resume meds at this time. Will F/u with GI to see if TF can be resumed. Gamble was reinserted overnight for retention. Electrolytes repleted, repeat in the am. Plan for possible PST today for possible extubation per CCM. 11/21: Patient is now on seroquel and patient's home buspar resumed. Patient more calm this morning, fentanyl gtt is off. H&H remains stable and patient is tolerating TF. Patient had a runs of Vtach/PVCs this am, BB added per Cardio. Continue daily PS and wean trial for possible extubation. 11/22: Back on fentanyl gtt overnight , RASS o to -1, following commands. Patient failed PST this am due to increased work of breathing and low SPO2, ABG pending. Patient is also with worsen pitting edema, lasix is still on hold. Will discuss with cardio and CCM to possibly resume lasix. 11/23: MARIA DEL CARMEN overnight. Patient failed PST again this am. Per CCM plan for possible trach and PEG, hold off on IV lasix for now. General surgery consulted and family is aware of possible Trach and PEG. 11/24: Trach/PEG pending this week, continue SBT/SAT as tolerated. No acute events reported overnight. 11/25: Patient was n.p.o. overnight and will remain n.p.o. tonight for trach/PEG tomorrow morning. She failed to support trial again. KUB obtained due to distended belly. 11/26: Patient scheduled for tracheostomy and PEG tube placement today, has been n.p.o. since midnight. No acute events reported overnight. [facility] ordered simethicone scheduled. 11/27: No acute events reported overnight, patient received trach/PEG yesterday. Has been on feedings since last night. Still awaiting LTAC placement. 11/28: Patient magnesium repleted, repeat a.m. labs, SBT 11/29: Patient complains of chest pain but ECG obtained which showed no acute findings, ordered troponin. Patient failed CPAP yesterday and was trialed again today. levophed was restarted but will aggressively wean Hospitalist Physical - Physical exam Narrative exam: General appearance: Present: no acute distress, other (On the vent) - EENT Eyes: Present: PERRL, EOM intact ENT: poor dentition - Neck Neck: Present: normal ROM - Respiratory Respiratory effort: normal Respiratory: bilateral: diminished - Cardiovascular Rhythm: regular Heart Sounds: Present: S1 & S2. Absent: systolic murmur, diastolic murmur - Extremities Extremities: no ischemia, pulses intact, pulses symmetrical, normal temperature, normal color Peripheral Pulses: within normal limits - Abdominal General gastrointestinal: soft, non-tender, non-distended, normal bowel sounds - Integumentary Integumentary: Present: warm, dry - Psychiatric Psychiatric: cooperative - Neurologic Neurologic: CNII-XII intact - Allied Health Allied health notes reviewed: nursing, RT, social work - Constitutional Vitals: Temp Pulse Resp BP Pulse Ox 98.6 F 75 16 112/49 98 11/29/21 12:00 11/29/21 16:19 11/29/21 14:15 11/29/21 16:19 11/29/21 16:19 General appearance: Present: no acute distress, other (On the vent) HEART Score - HEART Score Troponin: Troponin T 0.033 ng/mL (0.00-0.029) H 11/05/21 06:11 Results - Labs CBC & Chem 7: 11/29/21 03:20 11/29/21 03:20 Labs: Laboratory Last Values WBC 9.8 K/mm3 (4.5-11.0) 11/29/21 03:20 RBC 3.05 M/mm3 (3.65-5.03) L 11/29/21 03:20 Hgb 8.2 gm/dl (10.1-14.3) L 11/29/21 03:20 Hct 25.8 % (30.3-42.9) L 11/29/21 03:20 MCV 84 fl (79-97) 11/29/21 03:20 MCH 27 pg (28-32) L 11/29/21 03:20 MCHC 32 % (30-34) 11/29/21 03:20 RDW 20.9 % (13.2-15.2) H 11/29/21 03:20 Plt Count 267 K/mm3 (140-440) 11/29/21 03:20 Add Manual Diff Complete 11/16/21 15:25 Total Counted 100 11/16/21 15:25 Seg Neutrophils % Duplicating Machine Operator 11/06/21 15:50 Seg Neuts % (Manual) 87.0 % (40.0-70.0) H 11/16/21 15:25 Band Neutrophils % 0 % 11/16/21 15:25 Lymphocytes % (Manual) 8.0 % (13.4-35.0) L 11/16/21 15:25 Reactive Lymphs % (Man) 0 % 11/16/21 15:25 Monocytes % (Manual) 5.0 % (0.0-7.3) 11/16/21 15:25 Eosinophils % (Manual) 0 % (0.0-4.3) 11/16/21 15:25 Basophils % (Manual) 0 % (0.0-1.8) 11/16/21 15:25 Metamyelocytes % 0 % 11/16/21 15:25 Myelocytes % 0 % 11/16/21 15:25 Promyelocytes % 0 % 11/16/21 15:25 Blast Cells % 0 % 11/16/21 15:25 Nucleated RBC % Not Reportable 11/16/21 15:25 Seg Neutrophils # Man 15.0 K/mm3 (1.8-7.7) H 11/16/21 15:25 Band Neutrophils # 0.0 K/mm3 11/16/21 15:25 Lymphocytes # (Manual) 1.4 K/mm3 (1.2-5.4) 11/16/21 15:25 Abs React Lymphs (Man) 0.0 K/mm3 11/16/21 15:25 Monocytes # (Manual) 0.9 K/mm3 (0.0-0.8) H 11/16/21 15:25 Eosinophils # (Manual) 0.0 K/mm3 (0.0-0.4) 11/16/21 15:25 Basophils # (Manual) 0.0 K/mm3 (0.0-0.1) 11/16/21 15:25 Metamyelocytes # 0.0 K/mm3 11/16/21 15:25 Myelocytes # 0.0 K/mm3 11/16/21 15:25 Promyelocytes # 0.0 K/mm3 11/16/21 15:25 Blast Cells # 0.0 K/mm3 11/16/21 15:25 WBC Morphology Not Reportable 11/16/21 15:25 Hypersegmented Neuts Not Reportable 11/16/21 15:25 Hyposegmented Neuts Not Reportable 11/16/21 15:25 Hypogranular Neuts Not Reportable 11/16/21 15:25 Smudge Cells Not Reportable 11/16/21 15:25 Toxic Granulation Not Reportable 11/16/21 15:25 Toxic Vacuolation Not Reportable 11/16/21 15:25 Dohle Bodies Not Reportable 11/16/21 15:25 Pelger-Huet Anomaly Not Reportable 11/16/21 15:25 Irina Rods Not Reportable 11/16/21 15:25 Platelet Estimate Consistent w auto 11/16/21 15:25 Clumped Platelets Rare 11/16/21 15:25 Plt Clumps, EDTA Not Reportable 11/16/21 15:25 Large Platelets Not Reportable 11/16/21 15:25 Giant Platelets Not Reportable 11/16/21 15:25 Platelet Satelliting Not Reportable 11/16/21 15:25 Plt Morphology Comment Not Reportable 11/16/21 15:25 RBC Morphology Not Reportable 11/16/21 15:25 Dimorphic RBCs Not Reportable 11/16/21 15:25 Polychromasia Not Reportable 11/16/21 15:25 Hypochromasia 2+ 11/16/21 15:25 Poikilocytosis Not Reportable 11/16/21 15:25 Anisocytosis 2+ 11/16/21 15:25 Microcytosis Not Reportable 11/16/21 15:25 Macrocytosis Not Reportable 11/16/21 15:25 Spherocytes Not Reportable 11/16/21 15:25 Pappenheimer Bodies Not Reportable 11/16/21 15:25 Sickle Cells Not Reportable 11/16/21 15:25 Target Cells 2+ 11/16/21 15:25 Tear Drop Cells Not Reportable 11/16/21 15:25 Ovalocytes Not Reportable 11/16/21 15:25 Helmet Cells Not Reportable 11/16/21 15:25 [place] Bodies Not Reportable 11/16/21 15:25 [place] Rings Not Reportable 11/16/21 15:25 Malcom Cells Not Reportable 11/16/21 15:25 Bite Cells Not Reportable 11/16/21 15:25 Crenated Cell Not Reportable 11/16/21 15:25 Elliptocytes Not Reportable 11/16/21 15:25 Acanthocytes (Spur) Not Reportable 11/16/21 15:25 Rouleaux Not Reportable 11/16/21 15:25 Hemoglobin C Crystals Not Reportable 11/16/21 15:25 Schistocytes Not Reportable 11/16/21 15:25 Malaria parasites Not Reportable 11/16/21 15:25 Godfrey Bodies Not Reportable 11/16/21 15:25 Hem Pathologist Commnt No 11/16/21 15:25 PT 16.9 Sec. (12.2-14.9) H 11/26/21 05:00 INR 1.24 (0.87-1.13) H 11/26/21 05:00 APTT 29.2 Sec. (24.2-36.6) 11/26/21 05:00 D-Dimer 2655.00 ng/mlDDU (0-234) H 11/11/21 04:28 ABG pH 7.449 pH Units (7.350-7.450) 11/21/21 16:00 ABG pCO2 32.1 mm Hg 11/21/21 16:00 ABG pO2 114.2 mm Hg (80.0-90.0) H 11/21/21 16:00 ABG HCO3 21.8 mmol/L (20.0-26.0) 11/21/21 16:00 ABG O2 Saturation 98.3 % (95.0-99.0) 11/21/21 16:00 ABG O2 Content 12.5 (0.0-44) 11/21/21 16:00 ABG Base Excess -1.7 mmol/L (-2.0-3.0) 11/21/21 16:00 ABG Hemoglobin 9.1 gm/dl (12.0-16.0) L 11/21/21 16:00 ABG Carboxyhemoglobin 1.9 % (0.0-5.0) 11/21/21 16:00 ABG Methemoglobin 0.5 % (0.0-1.5) 11/21/21 16:00 Oxyhemoglobin 96.0 % (95.0-99.0) 11/21/21 16:00 FiO2 30 % 11/21/21 16:00 Sodium 133 mmol/L (137-145) L 11/29/21 03:20 Potassium 3.8 mmol/L (3.6-5.0) 11/29/21 03:20 Chloride 99.2 mmol/L (98-107) 11/29/21 03:20 Carbon Dioxide 26 mmol/L (22-30) 11/29/21 03:20 Anion Gap 12 mmol/L 11/29/21 03:20 BUN 24 mg/dL (7-17) H 11/29/21 03:20 Creatinine 0.6 mg/dL (0.6-1.2) 11/29/21 03:20 Estimated GFR > 60 ml/min 11/29/21 03:20 BUN/Creatinine Ratio 40 % 11/29/21 03:20 Glucose 137 mg/dL (65-100) H 11/29/21 03:20 POC Glucose 124 mg/dL (70-105) H 11/29/21 17:11 Lactic Acid 3.70 mmol/L (0.7-2.0) H* 11/03/21 22:32 Calcium 7.4 mg/dL (8.4-10.2) L 11/29/21 03:20 Phosphorus 3.00 mg/dL (2.5-4.5) 11/29/21 03:20 Magnesium 2.00 mg/dL (1.7-2.3) 11/29/21 03:20 Ferritin 52.6 ng/mL (10.0-200.0) 11/05/21 06:11 Total Bilirubin 0.50 mg/dL (0.1-1.2) 11/17/21 05:56 Direct Bilirubin < 0.2 mg/dL (0-0.2) 11/11/21 04:28 Indirect Bilirubin 0.1 mg/dL 11/11/21 04:28 AST 36 units/L (5-40) 11/17/21 05:56 ALT 47 units/L (7-56) 11/17/21 05:56 Alkaline Phosphatase 107 units/L (35-129) 11/17/21 05:56 Ammonia 42.0 umol/L (25-60) 11/10/21 14:08 Lactate Dehydrogenase 187 units/L (91-180) H 11/05/21 06:11 Troponin T 0.033 ng/mL (0.00-0.029) H 11/05/21 06:11 C-Reactive Protein 22.20 mg/dL (0.00-1.30) H 11/05/21 06:11 NT-Pro-B Natriuret Pep 7895 pg/mL (0-900) H 11/03/21 22:32 Total Protein 5.1 g/dL (6.3-8.2) L 11/17/21 05:56 Albumin 2.2 g/dL (3.9-5) L 11/17/21 05:56 Albumin/Globulin Ratio 0.8 % 11/17/21 05:56 Triglycerides 66 mg/dL (2-149) 11/03/21 22:32 Cholesterol 80 mg/dL (50-199) 11/03/21 22:32 LDL Cholesterol Direct 34 mg/dL (50-130) L 11/03/21 22:32 HDL Cholesterol 42 mg/dL (40-59) 11/03/21 22:32 Cholesterol/HDL Ratio 1.90 % 11/03/21 22:32 Vitamin B12 1823 pg/mL (211-911) H 11/10/21 14:08 TSH 1.510 mlU/mL (0.270-4.200) 11/10/21 14:08 Urine Color Yellow (Yellow) 11/11/21 09:00 Urine Turbidity Slightly-cloudy (Clear) 11/11/21 09:00 Urine pH 5.0 (5.0-7.0) 11/11/21 09:00 Ur Specific [place] 1.009 (1.003-1.030) 11/11/21 09:00 Urine Protein <15 mg/dl mg/dL (Negative) 11/11/21 09:00 Urine Glucose (UA) Neg mg/dL (Negative) 11/11/21 09:00 Urine Ketones Neg mg/dL (Negative) 11/11/21 09:00 Urine Blood Mod (Negative) 11/11/21 09:00 Urine Nitrite Neg (Negative) 11/11/21 09:00 Urine Bilirubin Neg (Negative) 11/11/21 09:00 Urine Urobilinogen < 2.0 mg/dL (<2.0) 11/11/21 09:00 Ur Leukocyte Esterase Neg (Negative) 11/11/21 09:00 Urine WBC (Auto) < 1.0 /HPF (0.0-6.0) 11/11/21 09:00 Urine RBC (Auto) < 1.0 /HPF (0.0-6.0) 11/11/21 09:00 Coronavirus (PCR) Negative (Negative) 11/10/21 08:30 Blood Type O POSITIVE 11/18/21 10:45 Antibody Screen Negative 11/18/21 10:45 Crossmatch See Detail 11/18/21 10:45 Gamble/IV: Voiding Method Indwelling Catheter Active Medications - Current Medications Current Medications: Generic Name Dose Route Start Last Admin Trade Name Freq PRN Reason Stop Dose Admin Acetaminophen 650 mg 11/04/21 02:03 11/23/21 16:26 Acetaminophen 325 Mg Tab PO 650 mg Q6H PRN Administration Pain MILD(1-3)/Fever >100.5/RODRIGUEZ Hydrocodone Bitart/Acetaminophen 1 each 11/21/21 10:00 11/29/21 14:51 Hydrocodone/Acetaminophen 10-325mg Tab FEEDTUBE 1 each TID YOSSI Administration Lipase/Protease/Amylase 1 each 11/08/21 11:09 Lipase 10,500/Protease 25,000/Amylase 43,750 (Units) Dr Lema FEEDTUBE PRN PRN For Clogged Feeding Tube Buspirone HCl 7.5 mg 11/17/21 22:00 11/29/21 09:57 Buspirone 5 Mg Tab PO 7.5 mg BID YOSSI Administration Dextrose 0 ml 11/10/21 10:52 11/21/21 16:27 Dextrose 10% *Hypoglycemia IV 50 ml PRN PRN Administration Hypoglycemia Fentanyl 1 applic 11/17/21 13:00 11/29/21 09:55 Fentanyl 25 Mcg/Hr Patch 72hr TD 1 applic Q3D YOSSI Administration Hydrophilic Ointment 1 applic 11/06/21 04:02 Lip Therapy Vaseline TP Q2HR PRN Dry Lips NORepinephrine/NS 8 MG-250 ML 8 mg in 250 mls @ 3.75 mls/hr 11/29/21 00:00 11/29/21 04:04 Norepinephrine/Ns 8 Mg-250 Ml (Double Conc) IV 4 mcg/min TITRATE YOSSI 7.5 mls/hr Titration Protocol 2 MCG/MIN Insulin Human Lispro 0 unit 11/06/21 12:00 11/29/21 12:23 Insulin Lispro 100 Unit/Ml SUB-Q Not Given Q6HR [facility] Protocol Lansoprazole 30 mg 11/24/21 22:00 11/29/21 09:56 Lansoprazole 30 Mg Solutab FEEDTUBE 30 mg BID YOSSI Administration Levothyroxine Sodium 125 mcg 11/05/21 07:00 11/29/21 06:20 Levothyroxine 125 Mcg Tab PO 125 mcg DAILY@0600 YOSSI Administration Magnesium Hydroxide 30 ml 11/04/21 02:03 Magnesium Hydroxide (Mom) Oral Liqd Udc PO Q4H PRN Constipation Metoprolol Tartrate 12.5 mg 11/21/21 10:00 11/29/21 09:56 Metoprolol Tartrate 25 Mg Tab PO 12.5 mg BID YOSSI Administration Multi-Ingred Cream/Lotion/Oil/Oint 1 applic 11/06/21 04:02 Mineral Oil/Petrolatum, White Ophth Oint 3.5 Gm OU Q4HR PRN Dry Eye(s) Ondansetron HCl 4 mg 11/04/21 02:03 11/05/21 15:48 Ondansetron 4 Mg/2 Ml Inj IV 4 mg Q8H PRN Administration Nausea And Vomiting Pravastatin Sodium 20 mg 11/18/21 22:00 11/28/21 21:33 Pravastatin 20 Mg Tab PO 20 mg QHS YOSSI Administration Quetiapine Fumarate 50 mg 11/20/21 22:00 11/29/21 09:56 Quetiapine 25 Mg Tab PO 50 mg BID YOSSI Administration Senna 17.6 mg 11/08/21 22:00 11/29/21 09:53 Sennosides Oral Liqd 8.8 Mg/5 Ml Oral Liqd PO 17.6 mg Q12HR YOSSI Administration Simple Syrup 15 ml 11/08/21 11:09 Simple Syrup 15 Ml FEEDTUBE PRN PRN Hypoglycemia Simple Syrup 30 ml 11/08/21 11:09 Simple Syrup 15 Ml FEEDTUBE PRN PRN Hypoglycemia Sodium Bicarbonate 325 mg 11/08/21 11:09 Sodium Bicarbonate 325 Mg Tab FEEDTUBE PRN PRN For Clogged Feeding Tube Sodium Chloride 10 ml 11/04/21 10:00 11/29/21 10:00 Sodium Chloride 0.9% 10 Ml Flush Syringe IV 10 ml BID YOSSI Administration Sodium Chloride 10 ml 11/04/21 02:03 Sodium Chloride 0.9% 10 Ml Flush Syringe IV PRN PRN LINE FLUSH Sodium Chloride 10 ml 11/10/21 09:57 11/17/21 20:47 Sodium Chloride 0.9% 50 Ml Ivpb IV 10 ml PRN PRN Administration FLUSH Sucralfate 1 gm 11/18/21 16:30 11/29/21 10:30 Sucralfate 1 Gm/10 Ml Oral Liqd PO 1 gm ACHS YOSSI Administration Nutrition/Malnutrition Assess - Dietary Evaluation Nutrition/Malnutrition Findings: Nutrition Notes Start: 11/04/21 17:16 Freq: Status: Active Protocol: Document 11/24/21 14:48 [facility] (Rec: 11/24/21 14:56 [facility] [id number]) Nutrition Notes Initial or Follow up Reassessment Current Diagnosis Diabetes,Hypertension,Heart Failure,Respiratory Failure Other Pertinent Diagnosis Bilat pneu, (R) pneumothorax, Septic shock Current Diet TF - Glucerna 1.2 at 42ml/hr Labs/Tests Reviewed Pertinent Medications Sucralfate Height 5 ft Weight 62.4 kg [place] Body Weight (kg) 45.45 BMI 26.9 Weight Status Appropriate Subjective/Other Information Observed TF infusing at goal rate. Pt remains on vent support. Trach/PEG placement pending. Percent of energy/protein needs met: 100% energy 81% pro Burn Absent Trauma Absent #1 Nutrition Diagnosis Inadequate oral intake Diagnosis Progress(for reassessment Continues documentation) Is patient on ventilator? Yes Is Patient Ambulatory and/or Out of Bed No REE-([facility]-confined to bed) [phone] Calculation Used for Recommendations [facility] Additional Notes Pro needs 1.2-2 g/k-125g/ day Fluid needs 1ml/kcal Nutrition Intervention Nutrition Support: Continue Glucerna 1.2 at 42ml/ hr with 75ml water flush q4h. Kcal 1,210 Protein (gm) 60 Carbohydrates (gm) 115 Fat (gm) 60 Fluid (mL) 811 Fiber (gm) 16 Goal #1 TF tolerance Goal #2 TF to meet at least 75% energy and pro needs Follow-Up By: 12/01/21 Additional Comments F/U: stable TF, trach/PEG placement, vent status, wt
--- NOTE | 2021-11-29 17:56 | XRay Report ---
CHEST 1 VIEW 11/29/2021 5:19 PM INDICATION / CLINICAL INFORMATION: chest pain. COMPARISON: 11/26/2021 FINDINGS: SUPPORT DEVICES: Right PICC line, tracheostomy tube and left subclavian pacemaker again noted. HEART / MEDIASTINUM: Stable moderate cardiomegaly. LUNGS / PLEURA: Severe bilateral pleural-parenchymal disease, unchanged. No pneumothorax. ADDITIONAL FINDINGS: No significant additional findings. IMPRESSION: 1. Stable chest with severe bilateral pleural-parenchymal disease Signer Name: Mathew Rogers MD Signed: 11/29/2021 5:51 PM Workstation Name: [id number]
[2021-11-29] MEDS ORDERED: ALTEPLASE 2 MG INJ IV ONE (21:34)
[2021-11-29] MEDS ORDERED: WATER FOR INJ Sterile (PF) 10 ML ONE (21:42)
[2021-11-29] MEDS: PRAVASTATIN 20 MG TAB PO SCH (22:11)
[2021-11-29 22:33] LABS: Chol/HDL Ratio 1.8 %
[2021-11-30] MEDS: INSULIN LISPRO 100 UNIT/ML SUB-Q SCH ×4 (04:55→16:59)
[2021-11-30 05:53] LABS: Hematocrit 28.9 % (30.3-42.9); Hemoglobin 9.1 gm/dl (10.1-14.3); Mean Corpuscular HGB Conc 32 % (30-34); Mean Corpuscular Volume 85 fl (79-97); Platelet Count 267 K/mm3 (140-440); Red Blood Count 3.41 M/mm3 (3.65-5.03)
[2021-11-30] MEDS: LEVOTHYROXINE 125 MCG TAB PO SCH (05:56)
[2021-11-30 05:59] LABS: Red Cell Distribution Width 20.4 % (13.2-15.2)
[2021-11-30 06:05] LABS: BUN/Creatinine Ratio 40; Blood Urea Nitrogen 24 mg/dL (7-17); Calcium 7.6 mg/dL (8.4-10.2); Hemolysis Index 0
[2021-11-30] MEDS: HYDROcodone/ACETAMINOPHEN 10-325MG TAB FEEDTUBE SCH ×3 (07:39→20:22)
[2021-11-30] MEDS: SUCRALFATE 1 GM/10 ML ORAL LIQD PO SCH ×4 (07:39→21:45)
--- NOTE | 2021-11-30 09:59 | Electrocardiograph Report ---
[facility] Test Date: 2021-11-29 Test Time: 09:34:11 Pat Name: ENRRIQUE GLASS Department: Room: A262 1 Gender: F [employer] Supervisor: [employer] NURSE : 1940 Requested By: FREDERICK DALTON Order Number: [id number] Reading MD: Federico Sabillon Measurements Intervals [place] Rate: 87 P: -33 CT: 147 QRS: -42 QRSD: 137 T: 123 QT: 376 QTc: 453 Interpretive Statements Sinus rhythm RBBB and LAFB Probable LVH with secondary repol abnrm Compared to ECG 11/22/2021 06:54:18 no significant change Electronically Signed On 11-30-2021 9:59:42 EST by Federico Sabillon
[2021-11-30] MEDS: SENNOSIDES ORAL LIQD 8.8 MG/5 ML ORAL LIQD PO SCH ×2 (10:05→21:45)
[2021-11-30] MEDS: busPIRone 5 MG TAB PO SCH ×2 (10:05→21:44)
[2021-11-30] MEDS: LANSOPRAZOLE 30 MG SOLUTAB FEEDTUBE SCH ×2 (10:05→21:45)
[2021-11-30] MEDS: QUEtiapine 25 MG TAB PO SCH ×2 (10:06→21:53)
[2021-11-30] MEDS: METOPROLOL TARTRATE 25 MG TAB PO SCH ×2 (10:06→21:45)
[2021-11-30] MEDS ORDERED: NITROGLYCERIN 0.4 MG TAB SUBL SL PRN (11:36)
--- NOTE | 2021-11-30 13:30 | Progress Note ---
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 - consider low doise daily lasix re: CXR pulm edema pattern - continue daily SAT and SBT assessment as tolerated meanwhile - LTAC evaluation ongoing - no new issues otherwise, continue care as below; - prn Levophed for target MAP > 65 mmHg - continue to wean supplemental oxygen for target O2 sat's > 90% acutely - VAP bundle addressed - continue lung protective strategies - continue bronchodilators with routine trach care and pulmonary hygiene per RT - wean per pulmonary driven protocols otherwise - avoid nephrotoxins, renally dose all medications - continue accuchecks with glycemic control per SSI (While critically ill target blood glucose of 140-180 mg/dL; avoid hypoglycemia) - sedation prn for target RASS 0 to -1 - antibiotics per ID recommendations - continue to avoid benzodiazepine's, reduce the possibility of delirium - prn analgesia per CPOT score - Maintenance of sleep-wake cycle, avoid delirium - continue enteral nutritional support at goal rate as tolerated - G.I. & VTE prophylaxis - PT/OT/ROM exercises - continue mobility protocols for pressure ulcer prophylaxis - Monitor hemodynamics closely - continue other care per attending / other consultants - discharge planning ongoing concurrently COVID SPECIFIC INTERVENTIONS - COVID-19 PCR negative .... Re-evaluate in am & prn CONDITION: CRITICAL PROGNOSIS: GUARDED CODE STATUS: FULL CODE The high probability of a clinically significant, sudden or life-threatening deterioration of the [respiratory, cardiovascular & neurologic] system(s) required my full and direct attention, intervention and personal management. The aggregate critical care time was [35] minutes without overlap. Time includes spent on; [x] Data Review and interpretation [x] Patient assessment and monitoring of vital signs [x] Documentation [x] Medication orders and management Subjective Date of service: 11/30/21 Principal diagnosis: Septic shock; AHRF; Anemia; Pneumonia; L. pleural effusion; HFrEF; Pulm HTN Interval history: Patient is seen today for: Septic shock; Acute hypoxemic respiratory failure; Anemia; Bilateral pneumonia; Left pleural effusion; HFrEF 30-35%; Pulm HTN RVSP 49 Seen and examined at bedside; 24hour events reviewed; nursing and respiratory care staff consulted; no adverse overnight events reported to me; resting in bed; remains on MVS; weaning better today but still pulling low end TV's; on PSV with p-supp @ 14 cm H2O and tolerating well so far today; denies N/V/F/C Objective Vital Signs - 12hr 11/30/21 11/30/21 11/30/21 02:00 03:00 03:41 Temperature 99.5 F Pulse Rate 76 74 Pulse Rate [ From Monitor] Respiratory 14 13 Rate Blood Pressure 111/49 117/49 O2 Sat by Pulse 99 100 Oximetry O2 Sat by Pulse Oximetry [ Assessment] 11/30/21 11/30/21 11/30/21 04:00 05:00 06:00 Temperature Pulse Rate 80 81 83 Pulse Rate [ 68 From Monitor] Respiratory 17 15 14 Rate Blood Pressure 126/58 126/58 129/55 O2 Sat by Pulse 95 98 97 Oximetry O2 Sat by Pulse Oximetry [ Assessment] 11/30/21 11/30/21 11/30/21 07:00 07:15 08:00 Temperature 99.3 F Pulse Rate 82 86 85 Pulse Rate [ 82 From Monitor] Respiratory 15 16 Rate Blood Pressure 121/53 103/51 117/51 O2 Sat by Pulse 97 98 98 Oximetry O2 Sat by Pulse 98 Oximetry [ Assessment] 11/30/21 11/30/21 11/30/21 08:30 09:00 10:00 Temperature Pulse Rate 87 85 87 Pulse Rate [ From Monitor] Respiratory 20 18 15 Rate Blood Pressure 114/54 123/53 122/61 O2 Sat by Pulse 98 99 99 Oximetry O2 Sat by Pulse Oximetry [ Assessment] 11/30/21 11/30/21 11/30/21 10:06 11:01 11:32 Temperature Pulse Rate 88 84 84 Pulse Rate [ From Monitor] Respiratory 19 Rate Blood Pressure 122/61 137/56 O2 Sat by Pulse 100 Oximetry O2 Sat by Pulse Oximetry [ Assessment] 11/30/21 11:33 Temperature Pulse Rate 83 Pulse Rate [ 84 From Monitor] Respiratory 22 Rate Blood Pressure 123/53 O2 Sat by Pulse 98 Oximetry O2 Sat by Pulse Oximetry [ Assessment] Constitutional: no acute distress, other (ETT to MVS, frail elderly woman with mildly increased respiratory effort at rest) Eyes: non-icteric ENT: oropharynx moist, oropharyngeal exudate pre (clear frothy), other (+ Midline tracheostomy) Neck: supple, no lymphadenopathy, no JVD Effort: mildly labored Ascultation: Bilateral: diminished breath sounds, rhonchi Percussion: Bilateral: not dull Cardiovascular: regular rate and rhythm, other (S1,S2) Gastrointestinal: normoactive bowel sounds, soft, non-tender, non-distended (protuberant) Integumentary: normal Extremities: no cyanosis, pink and warm, pulses normal, edema (upper etremities) Neurologic: non-focal exam (grossly), pupils equal and round, CN II-XII normal Psychiatric: mood appropriate, affect normal CBC and BMP: 11/30/21 05:40 11/30/21 05:40 ABG, PT/INR, D-dimer: ABG ABG pH 7.449 pH Units (7.350-7.450) 11/21/21 16:00 ABG pCO2 32.1 mm Hg 11/21/21 16:00 ABG pO2 114.2 mm Hg (80.0-90.0) H 11/21/21 16:00 ABG O2 Saturation 98.3 % (95.0-99.0) 11/21/21 16:00 PT/INR, D-dimer PT 16.9 Sec. (12.2-14.9) H 11/26/21 05:00 INR 1.24 (0.87-1.13) H 11/26/21 05:00 D-Dimer 2655.00 ng/mlDDU (0-234) H 11/11/21 04:28 Abnormal lab findings: Abnormal Labs 11/03/21 11/03/21 11/03/21 22:32 22:32 22:32 WBC 29.3 H RBC 2.93 L Hgb 6.1 L Hct 21.9 L MCV 75 L MCH 21 L MCHC 28 L RDW 19.7 H Plt Count Seg Neuts % (Manual) 97.0 H Lymphocytes % (Manual) 3.0 L Seg Neutrophils # Man 28.4 H Lymphocytes # (Manual) 0.9 L Monocytes # (Manual) PT 18.6 H INR 1.40 H D-Dimer ABG pH ABG pO2 ABG HCO3 ABG O2 Saturation ABG Base Excess ABG Hemoglobin Oxyhemoglobin Sodium Potassium Chloride Carbon Dioxide 20 L BUN 33 H Glucose 119 H POC Glucose Lactic Acid Calcium 8.3 L Phosphorus Magnesium AST ALT Alkaline Phosphatase Lactate Dehydrogenase Troponin T 0.035 H C-Reactive Protein NT-Pro-B Natriuret Pep Total Protein Albumin LDL Cholesterol Direct 34 L Vitamin B12 Crossmatch 11/03/21 11/03/21 11/03/21 22:32 22:32 23:57 WBC RBC Hgb Hct MCV MCH MCHC RDW Plt Count Seg Neuts % (Manual) Lymphocytes % (Manual) Seg Neutrophils # Man Lymphocytes # (Manual) Monocytes # (Manual) PT INR D-Dimer ABG pH ABG pO2 ABG HCO3 ABG O2 Saturation ABG Base Excess ABG Hemoglobin Oxyhemoglobin Sodium Potassium Chloride Carbon Dioxide BUN Glucose POC Glucose Lactic Acid 3.70 H* Calcium Phosphorus Magnesium AST ALT Alkaline Phosphatase 139 H Lactate Dehydrogenase Troponin T C-Reactive Protein NT-Pro-B Natriuret Pep 7895 H Total Protein Albumin 3.5 L LDL Cholesterol Direct Vitamin B12 Crossmatch See Detail 11/04/21 11/04/21 11/05/21 00:59 13:58 00:51 WBC 27.9 H RBC 3.28 L Hgb 7.3 L Hct 25.5 L MCV 78 L MCH 22 L MCHC 29 L RDW 19.1 H Plt Count Seg Neuts % (Manual) 96.0 H Lymphocytes % (Manual) 2.0 L Seg Neutrophils # Man 26.8 H Lymphocytes # (Manual) 0.6 L Monocytes # (Manual) PT INR D-Dimer ABG pH ABG pO2 ABG HCO3 ABG O2 Saturation ABG Base Excess ABG Hemoglobin Oxyhemoglobin Sodium Potassium Chloride Carbon Dioxide BUN Glucose POC Glucose Lactic Acid Calcium Phosphorus Magnesium AST ALT Alkaline Phosphatase Lactate Dehydrogenase Troponin T 0.051 H D 0.032 H D C-Reactive Protein NT-Pro-B Natriuret Pep Total Protein Albumin LDL Cholesterol Direct Vitamin B12 Crossmatch 11/05/21 11/05/21 11/05/21 06:11 06:11 06:11 WBC 31.8 H RBC 3.57 L Hgb 8.0 L Hct 27.7 L MCV 78 L MCH 22 L MCHC 29 L RDW 19.2 H Plt Count Seg Neuts % (Manual) 91.0 H Lymphocytes % (Manual) 4.5 L Seg Neutrophils # Man 28.9 H Lymphocytes # (Manual) Monocytes # (Manual) 1.1 H PT INR D-Dimer 1494.53 H ABG pH ABG pO2 ABG HCO3 ABG O2 Saturation ABG Base Excess ABG Hemoglobin Oxyhemoglobin Sodium Potassium Chloride Carbon Dioxide 19 L BUN 42 H Glucose 115 H POC Glucose Lactic Acid Calcium Phosphorus Magnesium AST 43 H ALT Alkaline Phosphatase Lactate Dehydrogenase 187 H Troponin T C-Reactive Protein 22.20 H NT-Pro-B Natriuret Pep Total Protein 6.0 L Albumin 3.2 L LDL Cholesterol Direct Vitamin B12 Crossmatch 11/05/21 11/05/21 11/06/21 06:11 12:15 00:30 WBC RBC Hgb Hct MCV MCH MCHC RDW Plt Count Seg Neuts % (Manual) Lymphocytes % (Manual) Seg Neutrophils # Man Lymphocytes # (Manual) Monocytes # (Manual) PT INR D-Dimer ABG pH ABG pO2 ABG HCO3 ABG O2 Saturation ABG Base Excess ABG Hemoglobin Oxyhemoglobin Sodium Potassium Chloride Carbon Dioxide BUN Glucose POC Glucose 113 H 69 L Lactic Acid Calcium Phosphorus Magnesium AST ALT Alkaline Phosphatase Lactate Dehydrogenase Troponin T 0.033 H C-Reactive Protein NT-Pro-B Natriuret Pep Total Protein Albumin LDL Cholesterol Direct Vitamin B12 Crossmatch 11/06/21 11/06/21 11/06/21 05:50 15:50 15:50 WBC 25.5 H RBC 3.62 L Hgb 8.0 L Hct 27.5 L MCV 76 L MCH 22 L MCHC 29 L RDW 19.6 H Plt Count Seg Neuts % (Manual) 92.0 H Lymphocytes % (Manual) 5.0 L Seg Neutrophils # Man 23.5 H Lymphocytes # (Manual) Monocytes # (Manual) PT INR D-Dimer ABG pH 7.305 L ABG pO2 ABG HCO3 15.8 L ABG O2 Saturation ABG Base Excess -9.6 L ABG Hemoglobin 8.6 L Oxyhemoglobin 94.6 L Sodium Potassium Chloride 113.9 H Carbon Dioxide 17 L BUN 56 H Glucose 114 H POC Glucose Lactic Acid Calcium 7.9 L Phosphorus Magnesium AST 1410 H ALT 934 H Alkaline Phosphatase 142 H Lactate Dehydrogenase Troponin T C-Reactive Protein NT-Pro-B Natriuret Pep Total Protein 5.0 L Albumin 2.6 L LDL Cholesterol Direct Vitamin B12 Crossmatch 11/07/21 11/07/21 11/07/21 03:30 04:50 08:07 WBC RBC Hgb Hct MCV MCH MCHC RDW Plt Count Seg Neuts % (Manual) Lymphocytes % (Manual) Seg Neutrophils # Man Lymphocytes # (Manual) Monocytes # (Manual) PT INR D-Dimer ABG pH ABG pO2 296.9 H ABG HCO3 18.1 L ABG O2 Saturation 99.5 H ABG Base Excess -5.9 L ABG Hemoglobin 7.6 L Oxyhemoglobin Sodium Potassium Chloride Carbon Dioxide BUN Glucose POC Glucose 106 H 108 H Lactic Acid Calcium Phosphorus Magnesium AST ALT Alkaline Phosphatase Lactate Dehydrogenase Troponin T C-Reactive Protein NT-Pro-B Natriuret Pep Total Protein Albumin LDL Cholesterol Direct Vitamin B12 Crossmatch 11/08/21 11/08/21 11/08/21 03:10 18:05 23:43 WBC RBC Hgb Hct MCV MCH MCHC RDW Plt Count Seg Neuts % (Manual) Lymphocytes % (Manual) Seg Neutrophils # Man Lymphocytes # (Manual) Monocytes # (Manual) PT INR D-Dimer ABG pH ABG pO2 127.4 H ABG HCO3 ABG O2 Saturation ABG Base Excess -3.4 L ABG Hemoglobin 7.4 L Oxyhemoglobin Sodium Potassium Chloride Carbon Dioxide BUN Glucose POC Glucose 113 H 141 H Lactic Acid Calcium Phosphorus Magnesium AST ALT Alkaline Phosphatase Lactate Dehydrogenase Troponin T C-Reactive Protein NT-Pro-B Natriuret Pep Total Protein Albumin LDL Cholesterol Direct Vitamin B12 Crossmatch 11/08/21 11/08/21 11/09/21 Unknown Unknown 02:00 WBC 14.5 H RBC 3.35 L Hgb 7.5 L 8.1 L Hct 25.4 L 27.6 L MCV 76 L 76 L MCH 23 L 22 L MCHC RDW 19.9 H 19.9 H Plt Count Seg Neuts % (Manual) Lymphocytes % (Manual) Seg Neutrophils # Man Lymphocytes # (Manual) Monocytes # (Manual) PT INR D-Dimer ABG pH ABG pO2 ABG HCO3 ABG O2 Saturation ABG Base Excess ABG Hemoglobin Oxyhemoglobin Sodium 154 H D Potassium 3.3 L Chloride 120.7 H Carbon Dioxide 20 L BUN 38 H Glucose POC Glucose Lactic Acid Calcium 8.3 L Phosphorus Magnesium AST ALT Alkaline Phosphatase Lactate Dehydrogenase Troponin T C-Reactive Protein NT-Pro-B Natriuret Pep Total Protein Albumin LDL Cholesterol Direct Vitamin B12 Crossmatch 11/09/21 11/09/21 11/09/21 02:00 02:31 05:12 WBC RBC Hgb Hct MCV MCH MCHC RDW Plt Count Seg Neuts % (Manual) Lymphocytes % (Manual) Seg Neutrophils # Man Lymphocytes # (Manual) Monocytes # (Manual) PT INR D-Dimer ABG pH 7.479 H ABG pO2 121.3 H ABG HCO3 ABG O2 Saturation ABG Base Excess ABG Hemoglobin 7.3 L Oxyhemoglobin Sodium Potassium Chloride 112.5 H Carbon Dioxide BUN 33 H Glucose 161 H POC Glucose 135 H Lactic Acid Calcium Phosphorus Magnesium AST 251 H ALT 481 H Alkaline Phosphatase Lactate Dehydrogenase Troponin T C-Reactive Protein NT-Pro-B Natriuret Pep Total Protein 5.0 L Albumin 2.8 L LDL Cholesterol Direct Vitamin B12 Crossmatch 11/09/21 11/09/21 11/09/21 11:33 16:32 23:28 WBC RBC Hgb Hct MCV MCH MCHC RDW Plt Count Seg Neuts % (Manual) Lymphocytes % (Manual) Seg Neutrophils # Man Lymphocytes # (Manual) Monocytes # (Manual) PT INR D-Dimer ABG pH ABG pO2 ABG HCO3 ABG O2 Saturation ABG Base Excess ABG Hemoglobin Oxyhemoglobin Sodium Potassium Chloride Carbon Dioxide BUN Glucose POC Glucose 132 H 133 H 143 H Lactic Acid Calcium Phosphorus Magnesium AST ALT Alkaline Phosphatase Lactate Dehydrogenase Troponin T C-Reactive Protein NT-Pro-B Natriuret Pep Total Protein Albumin LDL Cholesterol Direct Vitamin B12 Crossmatch 11/10/21 11/10/21 11/10/21 04:00 04:00 05:35 WBC 16.0 H RBC 3.61 L Hgb 8.0 L Hct 27.1 L MCV 75 L MCH 22 L MCHC RDW 20.4 H Plt Count Seg Neuts % (Manual) Lymphocytes % (Manual) Seg Neutrophils # Man Lymphocytes # (Manual) Monocytes # (Manual) PT INR D-Dimer ABG pH ABG pO2 ABG HCO3 ABG O2 Saturation ABG Base Excess ABG Hemoglobin Oxyhemoglobin Sodium 149 H Potassium Chloride 114.1 H Carbon Dioxide BUN 31 H Glucose 148 H POC Glucose 132 H Lactic Acid Calcium 8.2 L Phosphorus Magnesium AST ALT Alkaline Phosphatase Lactate Dehydrogenase Troponin T C-Reactive Protein NT-Pro-B Natriuret Pep Total Protein Albumin LDL Cholesterol Direct Vitamin B12 Crossmatch 11/10/21 11/10/21 11/10/21 11:31 14:08 15:35 WBC RBC Hgb Hct MCV MCH MCHC RDW Plt Count Seg Neuts % (Manual) Lymphocytes % (Manual) Seg Neutrophils # Man Lymphocytes # (Manual) Monocytes # (Manual) PT INR D-Dimer ABG pH ABG pO2 126.6 H ABG HCO3 ABG O2 Saturation ABG Base Excess ABG Hemoglobin 7.4 L Oxyhemoglobin Sodium Potassium Chloride Carbon Dioxide BUN Glucose POC Glucose 147 H Lactic Acid Calcium Phosphorus Magnesium AST ALT Alkaline Phosphatase Lactate Dehydrogenase Troponin T C-Reactive Protein NT-Pro-B Natriuret Pep Total Protein Albumin LDL Cholesterol Direct Vitamin B12 1823 H Crossmatch 11/10/21 11/11/21 11/11/21 17:53 00:55 04:28 WBC RBC Hgb Hct MCV MCH MCHC RDW Plt Count Seg Neuts % (Manual) Lymphocytes % (Manual) Seg Neutrophils # Man Lymphocytes # (Manual) Monocytes # (Manual) PT INR D-Dimer ABG pH ABG pO2 ABG HCO3 ABG O2 Saturation ABG Base Excess ABG Hemoglobin Oxyhemoglobin Sodium 149 H Potassium Chloride 112.2 H Carbon Dioxide BUN 34 H Glucose 148 H POC Glucose 140 H 145 H Lactic Acid Calcium 7.9 L Phosphorus Magnesium AST 53 H ALT 203 H Alkaline Phosphatase Lactate Dehydrogenase Troponin T C-Reactive Protein NT-Pro-B Natriuret Pep Total Protein 4.9 L Albumin 2.6 L LDL Cholesterol Direct Vitamin B12 Crossmatch 11/11/21 11/11/21 11/11/21 04:28 04:28 05:28 WBC 20.9 H RBC 3.47 L Hgb 7.5 L Hct 26.0 L MCV 75 L MCH 22 L MCHC 29 L RDW 21.6 H Plt Count 132 L Seg Neuts % (Manual) Lymphocytes % (Manual) Seg Neutrophils # Man Lymphocytes # (Manual) Monocytes # (Manual) PT INR D-Dimer 2655.00 H ABG pH ABG pO2 ABG HCO3 ABG O2 Saturation ABG Base Excess ABG Hemoglobin Oxyhemoglobin Sodium Potassium Chloride Carbon Dioxide BUN Glucose POC Glucose 154 H Lactic Acid Calcium Phosphorus Magnesium AST ALT Alkaline Phosphatase Lactate Dehydrogenase Troponin T C-Reactive Protein NT-Pro-B Natriuret Pep Total Protein Albumin LDL Cholesterol Direct Vitamin B12 Crossmatch 11/11/21 11/11/21 11/12/21 12:38 18:13 00:14 WBC RBC Hgb Hct MCV MCH MCHC RDW Plt Count Seg Neuts % (Manual) Lymphocytes % (Manual) Seg Neutrophils # Man Lymphocytes # (Manual) Monocytes # (Manual) PT INR D-Dimer ABG pH ABG pO2 ABG HCO3 ABG O2 Saturation ABG Base Excess ABG Hemoglobin Oxyhemoglobin Sodium Potassium Chloride Carbon Dioxide BUN Glucose POC Glucose 137 H 108 H 137 H Lactic Acid Calcium Phosphorus Magnesium AST ALT Alkaline Phosphatase Lactate Dehydrogenase Troponin T C-Reactive Protein NT-Pro-B Natriuret Pep Total Protein Albumin LDL Cholesterol Direct Vitamin B12 Crossmatch 11/12/21 11/12/21 11/12/21 05:40 06:24 11:12 WBC RBC Hgb Hct MCV MCH MCHC RDW Plt Count Seg Neuts % (Manual) Lymphocytes % (Manual) Seg Neutrophils # Man Lymphocytes # (Manual) Monocytes # (Manual) PT INR D-Dimer ABG pH 7.586 H ABG pO2 150.6 H ABG HCO3 27.2 H ABG O2 Saturation 99.1 H ABG Base Excess 5.2 H ABG Hemoglobin 7.5 L Oxyhemoglobin Sodium Potassium Chloride Carbon Dioxide BUN Glucose POC Glucose 132 H 140 H Lactic Acid Calcium Phosphorus Magnesium AST ALT Alkaline Phosphatase Lactate Dehydrogenase Troponin T C-Reactive Protein NT-Pro-B Natriuret Pep Total Protein Albumin LDL Cholesterol Direct Vitamin B12 Crossmatch 11/12/21 11/12/21 11/12/21 14:50 14:50 17:13 WBC 19.8 H RBC 3.27 L Hgb 7.1 L Hct 24.5 L MCV 75 L MCH 22 L MCHC 29 L RDW 22.3 H Plt Count Seg Neuts % (Manual) Lymphocytes % (Manual) Seg Neutrophils # Man Lymphocytes # (Manual) Monocytes # (Manual) PT INR D-Dimer ABG pH ABG pO2 ABG HCO3 ABG O2 Saturation ABG Base Excess ABG Hemoglobin Oxyhemoglobin Sodium 150 H Potassium 3.3 L Chloride 112.0 H Carbon Dioxide BUN 40 H Glucose 151 H POC Glucose 121 H Lactic Acid Calcium 7.4 L Phosphorus 1.70 L Magnesium 1.40 L AST ALT Alkaline Phosphatase Lactate Dehydrogenase Troponin T C-Reactive Protein NT-Pro-B Natriuret Pep Total Protein Albumin LDL Cholesterol Direct Vitamin B12 Crossmatch 11/12/21 11/13/21 11/13/21 23:19 05:34 06:30 WBC RBC Hgb Hct MCV MCH MCHC RDW Plt Count Seg Neuts % (Manual) Lymphocytes % (Manual) Seg Neutrophils # Man Lymphocytes # (Manual) Monocytes # (Manual) PT INR D-Dimer ABG pH ABG pO2 ABG HCO3 ABG O2 Saturation ABG Base Excess ABG Hemoglobin Oxyhemoglobin Sodium 149 H Potassium Chloride 60.0 L Carbon Dioxide BUN 40 H Glucose 146 H POC Glucose 113 H 132 H Lactic Acid Calcium 7.3 L Phosphorus Magnesium 2.40 H AST ALT 72 H Alkaline Phosphatase Lactate Dehydrogenase Troponin T C-Reactive Protein NT-Pro-B Natriuret Pep Total Protein 5.2 L Albumin 2.2 L LDL Cholesterol Direct Vitamin B12 Crossmatch 11/13/21 11/13/21 11/13/21 06:30 08:30 11:19 WBC 21.2 H RBC 3.12 L Hgb 6.8 L Hct 23.2 L MCV 74 L MCH 22 L MCHC 29 L RDW 22.2 H Plt Count 135 L Seg Neuts % (Manual) Lymphocytes % (Manual) Seg Neutrophils # Man Lymphocytes # (Manual) Monocytes # (Manual) PT INR D-Dimer ABG pH ABG pO2 ABG HCO3 ABG O2 Saturation ABG Base Excess ABG Hemoglobin Oxyhemoglobin Sodium Potassium Chloride Carbon Dioxide BUN Glucose POC Glucose 136 H Lactic Acid Calcium Phosphorus Magnesium AST ALT Alkaline Phosphatase Lactate Dehydrogenase Troponin T C-Reactive Protein NT-Pro-B Natriuret Pep Total Protein Albumin LDL Cholesterol Direct Vitamin B12 Crossmatch See Detail 11/13/21 11/14/21 11/14/21 18:21 00:01 04:46 WBC 20.0 H RBC 3.41 L Hgb 7.9 L Hct 26.8 L MCV MCH 23 L MCHC 29 L RDW 24.0 H Plt Count Seg Neuts % (Manual) Lymphocytes % (Manual) Seg Neutrophils # Man Lymphocytes # (Manual) Monocytes # (Manual) PT INR D-Dimer ABG pH ABG pO2 ABG HCO3 ABG O2 Saturation ABG Base Excess ABG Hemoglobin Oxyhemoglobin Sodium Potassium Chloride Carbon Dioxide BUN Glucose POC Glucose 149 H 141 H Lactic Acid Calcium Phosphorus Magnesium AST ALT Alkaline Phosphatase Lactate Dehydrogenase Troponin T C-Reactive Protein NT-Pro-B Natriuret Pep Total Protein Albumin LDL Cholesterol Direct Vitamin B12 Crossmatch 11/14/21 11/14/21 11/14/21 04:46 05:10 11:10 WBC RBC Hgb Hct MCV MCH MCHC RDW Plt Count Seg Neuts % (Manual) Lymphocytes % (Manual) Seg Neutrophils # Man Lymphocytes # (Manual) Monocytes # (Manual) PT INR D-Dimer ABG pH ABG pO2 ABG HCO3 ABG O2 Saturation ABG Base Excess ABG Hemoglobin Oxyhemoglobin Sodium 148 H Potassium Chloride 113.1 H Carbon Dioxide BUN 43 H Glucose 140 H POC Glucose 132 H 133 H Lactic Acid Calcium 7.5 L Phosphorus Magnesium AST ALT Alkaline Phosphatase Lactate Dehydrogenase Troponin T C-Reactive Protein NT-Pro-B Natriuret Pep Total Protein Albumin LDL Cholesterol Direct Vitamin B12 Crossmatch 11/14/21 11/14/21 11/14/21 16:14 17:48 23:23 WBC RBC Hgb Hct MCV MCH MCHC RDW Plt Count Seg Neuts % (Manual) Lymphocytes % (Manual) Seg Neutrophils # Man Lymphocytes # (Manual) Monocytes # (Manual) PT INR D-Dimer ABG pH ABG pO2 ABG HCO3 28.0 H ABG O2 Saturation ABG Base Excess 3.1 H ABG Hemoglobin 5.8 L Oxyhemoglobin 94.8 L Sodium Potassium Chloride Carbon Dioxide BUN Glucose POC Glucose 130 H 136 H Lactic Acid Calcium Phosphorus Magnesium AST ALT Alkaline Phosphatase Lactate Dehydrogenase Troponin T C-Reactive Protein NT-Pro-B Natriuret Pep Total Protein Albumin LDL Cholesterol Direct Vitamin B12 Crossmatch 11/15/21 11/15/21 11/15/21 05:20 05:50 05:50 WBC 19.9 H RBC 3.50 L Hgb 8.2 L Hct 27.9 L MCV MCH 23 L MCHC 29 L RDW 24.9 H Plt Count Seg Neuts % (Manual) Lymphocytes % (Manual) Seg Neutrophils # Man Lymphocytes # (Manual) Monocytes # (Manual) PT INR D-Dimer ABG pH ABG pO2 ABG HCO3 ABG O2 Saturation ABG Base Excess ABG Hemoglobin Oxyhemoglobin Sodium 149 H Potassium Chloride 112.0 H Carbon Dioxide BUN 48 H Glucose 152 H POC Glucose 137 H Lactic Acid Calcium 7.9 L Phosphorus Magnesium AST ALT Alkaline Phosphatase Lactate Dehydrogenase Troponin T C-Reactive Protein NT-Pro-B Natriuret Pep Total Protein Albumin LDL Cholesterol Direct Vitamin B12 Crossmatch 11/15/21 11/15/21 11/15/21 12:12 17:07 23:24 WBC RBC Hgb Hct MCV MCH MCHC RDW Plt Count Seg Neuts % (Manual) Lymphocytes % (Manual) Seg Neutrophils # Man Lymphocytes # (Manual) Monocytes # (Manual) PT INR D-Dimer ABG pH ABG pO2 ABG HCO3 ABG O2 Saturation ABG Base Excess ABG Hemoglobin Oxyhemoglobin Sodium Potassium Chloride Carbon Dioxide BUN Glucose POC Glucose 114 H 135 H 123 H Lactic Acid Calcium Phosphorus Magnesium AST ALT Alkaline Phosphatase Lactate Dehydrogenase Troponin T C-Reactive Protein NT-Pro-B Natriuret Pep Total Protein Albumin LDL Cholesterol Direct Vitamin B12 Crossmatch 11/16/21 11/16/21 11/16/21 05:21 10:00 10:00 WBC 21.7 H RBC 2.57 L Hgb 6.0 L Hct 20.2 L D MCV MCH 24 L MCHC RDW 26.3 H Plt Count Seg Neuts % (Manual) Lymphocytes % (Manual) Seg Neutrophils # Man Lymphocytes # (Manual) Monocytes # (Manual) PT INR D-Dimer ABG pH ABG pO2 ABG HCO3 ABG O2 Saturation ABG Base Excess ABG Hemoglobin Oxyhemoglobin Sodium 153 H Potassium Chloride 114.9 H Carbon Dioxide BUN 74 H Glucose 155 H POC Glucose 127 H Lactic Acid Calcium 8.1 L Phosphorus Magnesium AST ALT Alkaline Phosphatase Lactate Dehydrogenase Troponin T C-Reactive Protein NT-Pro-B Natriuret Pep Total Protein Albumin LDL Cholesterol Direct Vitamin B12 Crossmatch 11/16/21 11/16/21 11/16/21 11:34 14:00 15:25 WBC 17.2 H RBC 2.08 L Hgb 4.7 L* Hct 16.2 L* MCV 78 L MCH 23 L MCHC 29 L RDW 26.0 H Plt Count Seg Neuts % (Manual) 87.0 H Lymphocytes % (Manual) 8.0 L Seg Neutrophils # Man 15.0 H Lymphocytes # (Manual) Monocytes # (Manual) 0.9 H PT INR D-Dimer ABG pH ABG pO2 ABG HCO3 ABG O2 Saturation ABG Base Excess ABG Hemoglobin Oxyhemoglobin Sodium Potassium Chloride Carbon Dioxide BUN Glucose POC Glucose 131 H Lactic Acid Calcium Phosphorus Magnesium AST ALT Alkaline Phosphatase Lactate Dehydrogenase Troponin T C-Reactive Protein NT-Pro-B Natriuret Pep Total Protein Albumin LDL Cholesterol Direct Vitamin B12 Crossmatch See Detail 11/16/21 11/16/21 11/16/21 15:25 17:21 22:43 WBC RBC Hgb 8.6 L D Hct 27.7 L D MCV MCH MCHC RDW Plt Count Seg Neuts % (Manual) Lymphocytes % (Manual) Seg Neutrophils # Man Lymphocytes # (Manual) Monocytes # (Manual) PT INR D-Dimer ABG pH ABG pO2 ABG HCO3 ABG O2 Saturation ABG Base Excess ABG Hemoglobin Oxyhemoglobin Sodium 148 H Potassium Chloride 113.2 H Carbon Dioxide BUN 84 H Glucose 164 H POC Glucose 124 H Lactic Acid Calcium 7.6 L Phosphorus Magnesium AST ALT Alkaline Phosphatase Lactate Dehydrogenase Troponin T C-Reactive Protein NT-Pro-B Natriuret Pep Total Protein Albumin LDL Cholesterol Direct Vitamin B12 Crossmatch 11/16/21 11/17/21 11/17/21 23:07 05:33 05:56 WBC 25.1 H RBC 3.47 L Hgb 8.7 L Hct 28.5 L MCV MCH 25 L MCHC RDW 22.3 H Plt Count Seg Neuts % (Manual) Lymphocytes % (Manual) Seg Neutrophils # Man Lymphocytes # (Manual) Monocytes # (Manual) PT INR D-Dimer ABG pH ABG pO2 ABG HCO3 ABG O2 Saturation ABG Base Excess ABG Hemoglobin Oxyhemoglobin Sodium Potassium Chloride Carbon Dioxide BUN Glucose POC Glucose 128 H 133 H Lactic Acid Calcium Phosphorus Magnesium AST ALT Alkaline Phosphatase Lactate Dehydrogenase Troponin T C-Reactive Protein NT-Pro-B Natriuret Pep Total Protein Albumin LDL Cholesterol Direct Vitamin B12 Crossmatch 11/17/21 11/17/21 11/17/21 05:56 11:00 11:55 WBC RBC Hgb 8.3 L Hct 26.9 L MCV MCH MCHC RDW Plt Count Seg Neuts % (Manual) Lymphocytes % (Manual) Seg Neutrophils # Man Lymphocytes # (Manual) Monocytes # (Manual) PT INR D-Dimer ABG pH ABG pO2 ABG HCO3 ABG O2 Saturation ABG Base Excess ABG Hemoglobin Oxyhemoglobin Sodium 151 H Potassium Chloride 113.6 H Carbon Dioxide BUN 85 H Glucose 132 H POC Glucose 121 H Lactic Acid Calcium 7.8 L Phosphorus Magnesium AST ALT Alkaline Phosphatase Lactate Dehydrogenase Troponin T C-Reactive Protein NT-Pro-B Natriuret Pep Total Protein 5.1 L Albumin 2.2 L LDL Cholesterol Direct Vitamin B12 Crossmatch 11/17/21 11/17/21 11/18/21 18:04 18:55 00:26 WBC RBC Hgb 7.5 L 7.1 L Hct 24.8 L 23.6 L MCV MCH MCHC RDW Plt Count Seg Neuts % (Manual) Lymphocytes % (Manual) Seg Neutrophils # Man Lymphocytes # (Manual) Monocytes # (Manual) PT INR D-Dimer ABG pH ABG pO2 ABG HCO3 ABG O2 Saturation ABG Base Excess ABG Hemoglobin Oxyhemoglobin Sodium Potassium Chloride Carbon Dioxide BUN Glucose POC Glucose 144 H Lactic Acid Calcium Phosphorus Magnesium AST ALT Alkaline Phosphatase Lactate Dehydrogenase Troponin T C-Reactive Protein NT-Pro-B Natriuret Pep Total Protein Albumin LDL Cholesterol Direct Vitamin B12 Crossmatch 11/18/21 11/18/21 11/18/21 00:43 05:10 05:10 WBC 12.5 H RBC 2.39 L Hgb 6.1 L Hct 20.2 L MCV MCH 25 L MCHC RDW 23.2 H Plt Count Seg Neuts % (Manual) Lymphocytes % (Manual) Seg Neutrophils # Man Lymphocytes # (Manual) Monocytes # (Manual) PT INR D-Dimer ABG pH ABG pO2 ABG HCO3 ABG O2 Saturation ABG Base Excess ABG Hemoglobin Oxyhemoglobin Sodium 131 L D Potassium 2.9 L* D Chloride 97.8 L Carbon Dioxide BUN 58 H Glucose 665 H* POC Glucose 139 H Lactic Acid Calcium 7.0 L Phosphorus 2.20 L D Magnesium 1.50 L AST ALT Alkaline Phosphatase Lactate Dehydrogenase Troponin T C-Reactive Protein NT-Pro-B Natriuret Pep Total Protein Albumin LDL Cholesterol Direct Vitamin B12 Crossmatch 11/18/21 11/18/21 11/18/21 05:23 07:10 10:45 WBC RBC Hgb Hct MCV MCH MCHC RDW Plt Count Seg Neuts % (Manual) Lymphocytes % (Manual) Seg Neutrophils # Man Lymphocytes # (Manual) Monocytes # (Manual) PT INR D-Dimer ABG pH ABG pO2 ABG HCO3 ABG O2 Saturation ABG Base Excess ABG Hemoglobin Oxyhemoglobin Sodium 148 H D Potassium 3.1 L Chloride 111.9 H Carbon Dioxide BUN 63 H Glucose 141 H POC Glucose 124 H Lactic Acid Calcium 8.1 L D Phosphorus Magnesium AST ALT Alkaline Phosphatase Lactate Dehydrogenase Troponin T C-Reactive Protein NT-Pro-B Natriuret Pep Total Protein Albumin LDL Cholesterol Direct Vitamin B12 Crossmatch See Detail 11/18/21 11/19/21 11/19/21 11:57 00:19 04:55 WBC RBC 3.35 L Hgb 9.0 L 8.9 L Hct 28.3 L D 28.1 L MCV MCH 27 L MCHC RDW 20.3 H Plt Count Seg Neuts % (Manual) Lymphocytes % (Manual) Seg Neutrophils # Man Lymphocytes # (Manual) Monocytes # (Manual) PT INR D-Dimer ABG pH ABG pO2 ABG HCO3 ABG O2 Saturation ABG Base Excess ABG Hemoglobin Oxyhemoglobin Sodium Potassium Chloride Carbon Dioxide BUN Glucose POC Glucose 119 H Lactic Acid Calcium Phosphorus Magnesium AST ALT Alkaline Phosphatase Lactate Dehydrogenase Troponin T C-Reactive Protein NT-Pro-B Natriuret Pep Total Protein Albumin LDL Cholesterol Direct Vitamin B12 Crossmatch 11/19/21 11/19/21 11/20/21 04:55 05:42 00:55 WBC RBC Hgb 9.0 L Hct 28.6 L MCV MCH MCHC RDW Plt Count Seg Neuts % (Manual) Lymphocytes % (Manual) Seg Neutrophils # Man Lymphocytes # (Manual) Monocytes # (Manual) PT INR D-Dimer ABG pH ABG pO2 ABG HCO3 ABG O2 Saturation ABG Base Excess ABG Hemoglobin Oxyhemoglobin Sodium Potassium 3.5 L Chloride 108.6 H Carbon Dioxide BUN 47 H Glucose 207 H POC Glucose 63 L Lactic Acid Calcium 7.1 L Phosphorus Magnesium AST ALT Alkaline Phosphatase Lactate Dehydrogenase Troponin T C-Reactive Protein NT-Pro-B Natriuret Pep Total Protein Albumin LDL Cholesterol Direct Vitamin B12 Crossmatch 11/20/21 11/20/21 11/20/21 05:40 05:40 Unknown WBC RBC 3.40 L Hgb 9.1 L Hct 28.8 L MCV MCH 27 L MCHC RDW 20.7 H Plt Count Seg Neuts % (Manual) Lymphocytes % (Manual) Seg Neutrophils # Man Lymphocytes # (Manual) Monocytes # (Manual) PT INR D-Dimer ABG pH ABG pO2 ABG HCO3 ABG O2 Saturation ABG Base Excess -2.7 L ABG Hemoglobin 9.5 L Oxyhemoglobin 94.3 L Sodium Potassium 3.5 L Chloride 108.9 H Carbon Dioxide BUN 37 H Glucose 117 H POC Glucose Lactic Acid Calcium 7.5 L Phosphorus Magnesium AST ALT Alkaline Phosphatase Lactate Dehydrogenase Troponin T C-Reactive Protein NT-Pro-B Natriuret Pep Total Protein Albumin LDL Cholesterol Direct Vitamin B12 Crossmatch 11/21/21 11/21/21 11/21/21 04:30 04:30 16:00 WBC RBC 3.25 L Hgb 8.6 L Hct 28.1 L MCV MCH 26 L MCHC RDW 20.7 H Plt Count Seg Neuts % (Manual) Lymphocytes % (Manual) Seg Neutrophils # Man Lymphocytes # (Manual) Monocytes # (Manual) PT INR D-Dimer ABG pH ABG pO2 114.2 H ABG HCO3 ABG O2 Saturation ABG Base Excess ABG Hemoglobin 9.1 L Oxyhemoglobin Sodium 134 L Potassium Chloride Carbon Dioxide 20 L BUN 34 H Glucose POC Glucose Lactic Acid Calcium 7.1 L Phosphorus Magnesium AST ALT Alkaline Phosphatase Lactate Dehydrogenase Troponin T C-Reactive Protein NT-Pro-B Natriuret Pep Total Protein Albumin LDL Cholesterol Direct Vitamin B12 Crossmatch 11/22/21 11/22/21 11/22/21 07:07 07:07 23:54 WBC RBC 3.30 L Hgb 9.0 L Hct 28.5 L MCV MCH 27 L MCHC RDW 21.0 H Plt Count Seg Neuts % (Manual) Lymphocytes % (Manual) Seg Neutrophils # Man Lymphocytes # (Manual) Monocytes # (Manual) PT INR D-Dimer ABG pH ABG pO2 ABG HCO3 ABG O2 Saturation ABG Base Excess ABG Hemoglobin Oxyhemoglobin Sodium Potassium Chloride Carbon Dioxide BUN 32 H Glucose 106 H POC Glucose 110 H Lactic Acid Calcium 7.5 L Phosphorus Magnesium AST ALT Alkaline Phosphatase Lactate Dehydrogenase Troponin T C-Reactive Protein NT-Pro-B Natriuret Pep Total Protein Albumin LDL Cholesterol Direct Vitamin B12 Crossmatch 11/23/21 11/23/21 11/23/21 04:38 04:38 06:01 WBC RBC 3.23 L Hgb 8.8 L Hct 28.0 L MCV MCH 27 L MCHC RDW 21.3 H Plt Count Seg Neuts % (Manual) Lymphocytes % (Manual) Seg Neutrophils # Man Lymphocytes # (Manual) Monocytes # (Manual) PT INR D-Dimer ABG pH ABG pO2 ABG HCO3 ABG O2 Saturation ABG Base Excess ABG Hemoglobin Oxyhemoglobin Sodium 136 L Potassium Chloride Carbon Dioxide 20 L BUN 32 H Glucose 109 H POC Glucose 115 H Lactic Acid Calcium 7.7 L Phosphorus Magnesium AST ALT Alkaline Phosphatase Lactate Dehydrogenase Troponin T C-Reactive Protein NT-Pro-B Natriuret Pep Total Protein Albumin LDL Cholesterol Direct Vitamin B12 Crossmatch 11/23/21 11/24/21 11/24/21 11:40 00:03 04:13 WBC RBC 3.18 L Hgb 8.5 L Hct 27.5 L MCV MCH 27 L MCHC RDW 21.6 H Plt Count Seg Neuts % (Manual) Lymphocytes % (Manual) Seg Neutrophils # Man Lymphocytes # (Manual) Monocytes # (Manual) PT INR D-Dimer ABG pH ABG pO2 ABG HCO3 ABG O2 Saturation ABG Base Excess ABG Hemoglobin Oxyhemoglobin Sodium Potassium Chloride Carbon Dioxide BUN Glucose POC Glucose 117 H 111 H Lactic Acid Calcium Phosphorus Magnesium AST ALT Alkaline Phosphatase Lactate Dehydrogenase Troponin T C-Reactive Protein NT-Pro-B Natriuret Pep Total Protein Albumin LDL Cholesterol Direct Vitamin B12 Crossmatch 11/24/21 11/24/21 11/24/21 04:13 05:30 11:10 WBC RBC Hgb Hct MCV MCH MCHC RDW Plt Count Seg Neuts % (Manual) Lymphocytes % (Manual) Seg Neutrophils # Man Lymphocytes # (Manual) Monocytes # (Manual) PT INR D-Dimer ABG pH ABG pO2 ABG HCO3 ABG O2 Saturation ABG Base Excess ABG Hemoglobin Oxyhemoglobin Sodium Potassium Chloride Carbon Dioxide BUN 31 H Glucose 101 H POC Glucose 115 H 107 H Lactic Acid Calcium 7.7 L Phosphorus Magnesium AST ALT Alkaline Phosphatase Lactate Dehydrogenase Troponin T C-Reactive Protein NT-Pro-B Natriuret Pep Total Protein Albumin LDL Cholesterol Direct Vitamin B12 Crossmatch 11/24/21 11/24/21 11/25/21 16:34 17:57 05:12 WBC RBC 3.11 L Hgb 8.2 L Hct 26.6 L MCV MCH 26 L MCHC RDW 21.3 H Plt Count Seg Neuts % (Manual) Lymphocytes % (Manual) Seg Neutrophils # Man Lymphocytes # (Manual) Monocytes # (Manual) PT INR D-Dimer ABG pH ABG pO2 ABG HCO3 ABG O2 Saturation ABG Base Excess ABG Hemoglobin Oxyhemoglobin Sodium Potassium Chloride Carbon Dioxide BUN Glucose POC Glucose 115 H 110 H Lactic Acid Calcium Phosphorus Magnesium AST ALT Alkaline Phosphatase Lactate Dehydrogenase Troponin T C-Reactive Protein NT-Pro-B Natriuret Pep Total Protein Albumin LDL Cholesterol Direct Vitamin B12 Crossmatch 11/25/21 11/25/21 11/26/21 05:12 11:20 05:00 WBC RBC 3.30 L Hgb 8.8 L Hct 28.2 L MCV MCH 27 L MCHC RDW 20.7 H Plt Count Seg Neuts % (Manual) Lymphocytes % (Manual) Seg Neutrophils # Man Lymphocytes # (Manual) Monocytes # (Manual) PT INR D-Dimer ABG pH ABG pO2 ABG HCO3 ABG O2 Saturation ABG Base Excess ABG Hemoglobin Oxyhemoglobin Sodium Potassium Chloride Carbon Dioxide BUN 32 H Glucose 118 H POC Glucose 118 H Lactic Acid Calcium 8.2 L Phosphorus Magnesium AST ALT Alkaline Phosphatase Lactate Dehydrogenase Troponin T C-Reactive Protein NT-Pro-B Natriuret Pep Total Protein Albumin LDL Cholesterol Direct Vitamin B12 Crossmatch 11/26/21 11/26/21 11/26/21 05:00 05:00 05:44 WBC RBC Hgb Hct MCV MCH MCHC RDW Plt Count Seg Neuts % (Manual) Lymphocytes % (Manual) Seg Neutrophils # Man Lymphocytes # (Manual) Monocytes # (Manual) PT 16.9 H INR 1.24 H D-Dimer ABG pH ABG pO2 ABG HCO3 ABG O2 Saturation ABG Base Excess ABG Hemoglobin Oxyhemoglobin Sodium Potassium Chloride Carbon Dioxide BUN 31 H Glucose 104 H POC Glucose 110 H Lactic Acid Calcium 7.9 L Phosphorus Magnesium AST ALT Alkaline Phosphatase Lactate Dehydrogenase Troponin T C-Reactive Protein NT-Pro-B Natriuret Pep Total Protein Albumin LDL Cholesterol Direct Vitamin B12 Crossmatch 11/26/21 11/27/21 11/27/21 23:55 07:40 07:40 WBC RBC 3.18 L Hgb 8.5 L Hct 27.0 L MCV MCH 27 L MCHC RDW 21.2 H Plt Count Seg Neuts % (Manual) Lymphocytes % (Manual) Seg Neutrophils # Man Lymphocytes # (Manual) Monocytes # (Manual) PT INR D-Dimer ABG pH ABG pO2 ABG HCO3 ABG O2 Saturation ABG Base Excess ABG Hemoglobin Oxyhemoglobin Sodium Potassium Chloride Carbon Dioxide BUN 27 H Glucose 112 H POC Glucose 63 L Lactic Acid Calcium 7.6 L Phosphorus Magnesium AST ALT Alkaline Phosphatase Lactate Dehydrogenase Troponin T C-Reactive Protein NT-Pro-B Natriuret Pep Total Protein Albumin LDL Cholesterol Direct Vitamin B12 Crossmatch 11/27/21 11/27/21 11/27/21 12:04 13:40 13:40 WBC RBC 3.31 L Hgb 8.7 L Hct 28.0 L MCV MCH 26 L MCHC RDW 20.7 H Plt Count Seg Neuts % (Manual) Lymphocytes % (Manual) Seg Neutrophils # Man Lymphocytes # (Manual) Monocytes # (Manual) PT INR D-Dimer ABG pH ABG pO2 ABG HCO3 ABG O2 Saturation ABG Base Excess ABG Hemoglobin Oxyhemoglobin Sodium 136 L Potassium Chloride Carbon Dioxide BUN 25 H Glucose 127 H POC Glucose 109 H Lactic Acid Calcium 7.6 L Phosphorus Magnesium 1.40 L AST ALT Alkaline Phosphatase Lactate Dehydrogenase Troponin T C-Reactive Protein NT-Pro-B Natriuret Pep Total Protein Albumin LDL Cholesterol Direct Vitamin B12 Crossmatch 11/27/21 11/27/21 11/28/21 17:44 23:33 12:20 WBC RBC Hgb Hct MCV MCH MCHC RDW Plt Count Seg Neuts % (Manual) Lymphocytes % (Manual) Seg Neutrophils # Man Lymphocytes # (Manual) Monocytes # (Manual) PT INR D-Dimer ABG pH ABG pO2 ABG HCO3 ABG O2 Saturation ABG Base Excess ABG Hemoglobin Oxyhemoglobin Sodium Potassium Chloride Carbon Dioxide BUN Glucose POC Glucose 107 H 108 H 114 H Lactic Acid Calcium Phosphorus Magnesium AST ALT Alkaline Phosphatase Lactate Dehydrogenase Troponin T C-Reactive Protein NT-Pro-B Natriuret Pep Total Protein Albumin LDL Cholesterol Direct Vitamin B12 Crossmatch 11/29/21 11/29/21 11/29/21 00:09 03:20 03:20 WBC RBC 3.05 L Hgb 8.2 L Hct 25.8 L MCV MCH 27 L MCHC RDW 20.9 H Plt Count Seg Neuts % (Manual) Lymphocytes % (Manual) Seg Neutrophils # Man Lymphocytes # (Manual) Monocytes # (Manual) PT INR D-Dimer ABG pH ABG pO2 ABG HCO3 ABG O2 Saturation ABG Base Excess ABG Hemoglobin Oxyhemoglobin Sodium 133 L Potassium Chloride Carbon Dioxide BUN 24 H Glucose 137 H POC Glucose 134 H Lactic Acid Calcium 7.4 L Phosphorus Magnesium AST ALT Alkaline Phosphatase Lactate Dehydrogenase Troponin T C-Reactive Protein NT-Pro-B Natriuret Pep Total Protein Albumin LDL Cholesterol Direct Vitamin B12 Crossmatch 11/29/21 11/29/21 11/29/21 05:38 11:39 17:11 WBC RBC Hgb Hct MCV MCH MCHC RDW Plt Count Seg Neuts % (Manual) Lymphocytes % (Manual) Seg Neutrophils # Man Lymphocytes # (Manual) Monocytes # (Manual) PT INR D-Dimer ABG pH ABG pO2 ABG HCO3 ABG O2 Saturation ABG Base Excess ABG Hemoglobin Oxyhemoglobin Sodium Potassium Chloride Carbon Dioxide BUN Glucose POC Glucose 117 H 143 H 124 H Lactic Acid Calcium Phosphorus Magnesium AST ALT Alkaline Phosphatase Lactate Dehydrogenase Troponin T C-Reactive Protein NT-Pro-B Natriuret Pep Total Protein Albumin LDL Cholesterol Direct Vitamin B12 Crossmatch 11/29/21 11/30/21 11/30/21 20:15 05:40 05:40 WBC 12.6 H RBC 3.41 L Hgb 9.1 L Hct 28.9 L MCV MCH 27 L MCHC RDW 20.4 H Plt Count Seg Neuts % (Manual) Lymphocytes % (Manual) Seg Neutrophils # Man Lymphocytes # (Manual) Monocytes # (Manual) PT INR D-Dimer ABG pH ABG pO2 ABG HCO3 ABG O2 Saturation ABG Base Excess ABG Hemoglobin Oxyhemoglobin Sodium Potassium Chloride Carbon Dioxide BUN 24 H Glucose 131 H POC Glucose Lactic Acid Calcium 7.6 L Phosphorus Magnesium AST ALT Alkaline Phosphatase Lactate Dehydrogenase Troponin T 0.045 H C-Reactive Protein NT-Pro-B Natriuret Pep Total Protein Albumin LDL Cholesterol Direct 25 L Vitamin B12 Crossmatch 11/30/21 11:29 WBC RBC Hgb Hct MCV MCH MCHC RDW Plt Count Seg Neuts % (Manual) Lymphocytes % (Manual) Seg Neutrophils # Man Lymphocytes # (Manual) Monocytes # (Manual) PT INR D-Dimer ABG pH ABG pO2 ABG HCO3 ABG O2 Saturation ABG Base Excess ABG Hemoglobin Oxyhemoglobin Sodium Potassium Chloride Carbon Dioxide BUN Glucose POC Glucose 123 H Lactic Acid Calcium Phosphorus Magnesium AST ALT Alkaline Phosphatase Lactate Dehydrogenase Troponin T C-Reactive Protein NT-Pro-B Natriuret Pep Total Protein Albumin LDL Cholesterol Direct Vitamin B12 Crossmatch Allied health notes reviewed: nursing
[2021-11-30] MEDS ORDERED: GABAPENTIN 100 MG CAP PO ONE (15:00)
--- NOTE | 2021-11-30 17:18 | Progress Note ---
<MAYCOLJASBIR Maria TeresaMarissa - Last Filed: 11/30/21 17:15> Assessment and Plan Assessment and plan: This is a 81-year-old female with known history of diabetes mellitus, hypertension, PPM, and arthritis admitted for sepsis and acute hypoxia respiratory failure 2/2 bilateral pneumonia requiring intubation and ventilatory support Assessment and Plan Neuro : Acute encephalopathy -Neurology consulted, appreciate recommendations -CT brain showed no acute events -EEG interpreted as abnormal record due to diffuse slowing noted throughout the recording, suggestive of encephalopathic process and/or drug effect, possibilities of postictal state cannot be totally excluded. Clinical correlation is in order -MRI brain not obtained-> patient has metal in her body -Repeat CT head with no acute findings -Reorientation as needed -Ammonia 42, B12 1823, TSH 1.5 -BuSpar, fentanyl patch, Seroquel, [place] -Gabapentin daily Cardio: Heart failure with reduced EF, h/o chronic heart block s/p PPM, HTN/CAD s/p PCI (2004) -vasopressor support with levophed -map goal >65 -11/04 echocardiogram shows EF 30 to 35% -Cardiology consulted, appreciate recommendations -Continue beta-charleen and statin therapy -Not on aspirin due to allergy -Blood pressure monitoring per protocol -As needed nitroglycerin Resp: Acute hypoxic respiratory failure secondary to bilateral pneumonia, bilateral pleural effusion. Right pneumothorax (resolved) -COVID-19 PCR negative -Intubated on 11/06 with 6.00 ETT at 18 at the lip and changed over bougie on 11/11-7.50 ETT at 20 at the lip -A.m. vent settings: Assist-control rate 14, tidal volume 400, PEEP 6, FiO2 30 % -See RT notes for titration -PSV today -Surgery consult for trach -Received trach/PEG on 11/26 -S/p bedside bronchoscopy on 11/11 complicated by pneumothorax -S/p chest tube placement for right pneumothorax and dislodgment by patient on 11/15 -ABG/CXR per CCM -VAP bundle -Right chest wall ultrasound showed pleural effusion s/p chest tube -SPO2 monitoring -Mucomyst every 8 -Albuterol every 8 GI: S/p GI bleed, duodenal ulcer,transaminitis -GI consulted, appreciate recommendations -Nutrition consult for tube feeding -BR: Senokot, MiraLAX -s/p peg trach 11/26 -H2 charleen -Carafate -24-hour -179 ml -BM 11/28 -Gastric occult positive : Urinary retention, hyponatremia -Gamble catheter in place -Strict intake and output -Trend BMP ID: Septic shock (POA), bilateral pneumonia, bacteremia -Infectious disease consulted, appreciate recommendations -COVID-19 PCR negative -Presented with fevers, leukocytosis and hypotension -11/04 blood cultures positive with a group B strep bacteremia however repeat blood cultures on the with no growth to date -Echo showed no evidence of vegetation -ABX therapy: Ceftriaxone (), vancomycin (11/05, ), clindamycin ), cefepime , ) -Monitor WBC and fever curve -Recultured on 11/11 with NGTD -Bedside bronchoscopy for mucous plug on CXR 11/11 Heme: Acute DVT in the right external iliac vein, common femoral vein, superior aspect of femoral vein, Acute microcytic anemia -Evidenced on bilateral upper lower extremity ultrasound -S/p 5 unit PRBC -Trend CBC -Transfuse for hemoglobin less than 7 -S/p IVC filter Endo: h/o DM and hypothyroidism -Continue home Synthroid -SSI -Accu-Cheks every 6 -Avoid hypoglycemia The high probability of a clinically significant, sudden or life threatening deterioration of the [multi] system(s) required my full and direct attention, intervention and personal management. The aggregate critical care time was [60] minutes. This time is in addition to time spent performing reported procedures but includes the following: [x] Data Review and interpretation [x] Patient assessment and monitoring of vital signs [x] Documentation [x] Medication orders and management Disposition Plan: icu Total Time Spent with Patient (Minutes): 60 History Interval history: This is an 82-year-old female with DM, HTN , PPM and arthritis who presented to the emergency department on 11/04 for shortness of breath ongoing for the past 3 days, cough and according to family a fever of 102.2. Upon arrival of EMS patient was found to be tachypneic and hypoxic with SPO2 of 76% on room air which later improved to 88% on nonrebreather. Work-up in the emergency depa rtment included a CXR which showed bilateral interstitial pulmonary edema with bilateral pleural effusions and bibasilar opacities, leukocytosis and anemia with a hemoglobin of 6.1. Patient was admitted to the hospitalist service with acute anemia, acute hypoxic respiratory failure, bilateral pneumonia and COVID- 19 PUI with consults to pulmonology, infectious disease and later cardiology. Patient was eventually intubated in the emergency department on 11/06. Hospital Course to date: 11/04/2021: Empiric therapy with iv levaquin/vancomycin. COVID PCR pending. Will consult ID. PCCM consulted, will follow recs. Hypotensive this AM, ordered bolus and fluids at 150 cc/hr. May require pressor support if bp does not improve. 11/05/2021: GBS on bcx +, currently on rocephin IV. Currently on bipap due to respiratory distress overnight. Worsening BL opacities on CXR. May be volume overload vs pneumonia. Unfortunately bp too low for lasix at this point. WIll continue levophed and bipap. Once able to tolerate, may do trial of albumin/lasix. Call attempt made to Niraj, no response. Will try again tomorrow to update. 11/06/2021: Decompensated overnight requiring intubation. CXR shows worsening interstitial infiltrates. Currenlty on dopamine, levophed, vasopressin. PICC line ordered. Advised RN to place gamble for I/O monitoring. Would benefit from diuresis but very volume overloaded. Prognosis guarded 11/08: Off sedation this am, remains unresponsive only grimace to pain. Hold all sedatives agents for now, patient is off pressors this am. Hypernatremia from today's lab- D5W X1bag, and low K repleted, repeat lab in the am. Severe constipation also noted from KUB, BR added. 11/09: Sudden SPO2 drop in the 60s this am. Patient was manually bagged and deep suctioned. Patient is currently stable on the vent, repeat CXR with no significant change. D/w CCM Mucomyst and brochodilator added. Patient mentation is unchanged, continue to hold off on sedative agents. Neurology consulted. 11/10: Acute DVT noted on bilateral lower extremity Doppler ultrasound therefore she was started on Lovenox treatment dose. Failed SBT. Hypernatremia and hyperchloremia noted, free water flush adjusted. 11/11: Patient noted to be febrile with increasing of the cytosis, UA/BC sent and CXR ordered. ID escalated antibiotics to cefepime. CXR demonstrated mucous plug, bedside bronchoscopy was performed and O ETT was changed over bougie from 6 cm to 7.5. Patient was noted to have a pneumothorax postprocedure and chest tube was placed. Family updated by [facility]. Free water flush increased and will add Jaswant supplementation. 11/12: Patient not noted to follow commands, hypernatremia worsen/persist, increasing free water flush, potassium and magnesium and phosphorus repleted. Hemoglobin noted to be 7.1/24.5 from 7.03/12 yesterday. We will continue to trend and monitor. Vent changes per CCM. Repeat CXR showed no residual pneumothorax. Consider waterseal tomorrow. Given persistent leukocytosis antibiotics escalated to cefepime per ID. 11/13: Remains on cefepime and vancomycin, vent changes per CCM. Anemia noted and given 1 unit PRBC. And beta-charleen held in setting of Levophed drip infusing. Remains on fentanyl drip. 11/14: Patient put on CPAP trial by [facility], will continue chest tube until after extubation. Will rest on assist control. CT brain was cancelled by international trade teacher a nd reordered. 11/15: Patient removed chest tube overnight. Will obtain cxr. remains on low dose levo. CTH completed with no acute findings. RT to place on CPAP. 11/16: Hypernatremia/hyperchloremia noted on the increase of day water flushes. Anemia noted and ordered PRBC. asked RT to place on cpap but not done yet 11/17: Patient remains on the vent, awake and following commands. H&H stable s/p 2units PRBCs. GI on consult, no intervention at this time. Will continue protonix gtt and serial H&H Q6hrs. Keep patient NPO for now, D5w added for hypernatremia and NPO status. Plan for IVC filter placement today by Vascular. 11/18: Patient is s/p IVC filter. H&H continue to trend down, hbg 6.1 this am, 1 unit of PRBCs ordered. Plan for possible EGD today by GI. Keep patient NPO, continue PPI drip and serial H&H Q6hrs. Electrolytes repleted, repeat lab in the am 11/19: S/p EGD- larger duodenal ulcer noted, see operative note. GI recommendations noted also noted. H&H stable this am. Keep patient on protonix gtt for now. Will keep patient NPO, continue IVF and serial H&H for now. Electrolytes repleted, repeat labs in the am 11/20: Very agitated and restless this am, fentanyl gtt resumed. Patient remains on protonix gtt, H&H remains stable. Will switch protonix gtt to IV BID, continue carafate and okay to resume meds at this time. Will F/u with GI to see if TF can be resumed. Gamble was reinserted overnight for retention. Electrolytes repleted, repeat in the am. Plan for possible PST today for possible extubation per CCM. 11/21: Patient is now on seroquel and patient's home buspar resumed. Patient more calm this morning, fentanyl gtt is off. H&H remains stable and patient is tolerating TF. Patient had a runs of Vtach/PVCs this am, BB added per Cardio. Continue daily PS and wean trial for possible extubation. 11/22: Back on fentanyl gtt overnight , RASS o to -1, following commands. Patient failed PST this am due to increased work of breathing and low SPO2, ABG pending. Patient is also with worsen pitting edema, lasix is still on hold. Will discuss with cardio and CCM to possibly resume lasix. 11/23: MARIA DEL CARMEN overnight. Patient failed PST again this am. Per CCM plan for possible trach and PEG, hold off on IV lasix for now. General surgery consulted and family is aware of possible Trach and PEG. 11/24: Trach/PEG pending this week, continue SBT/SAT as tolerated. No acute events reported overnight. 11/25: Patient was n.p.o. overnight and will remain n.p.o. tonight for trach/PEG tomorrow morning. She failed to support trial again. KUB obtained due to distended belly. 11/26: Patient scheduled for tracheostomy and PEG tube placement today, has been n.p.o. since midnight. No acute events reported overnight. [facility] ordered simethicone scheduled. 11/27: No acute events reported overnight, patient received trach/PEG yesterday. Has been on feedings since last night. Still awaiting LTAC placement. 11/28: Patient magnesium repleted, repeat a.m. labs, SBT 11/29: Patient complains of chest pain but ECG obtained which showed no acute findings, ordered troponin. Patient failed CPAP yesterday and was trialed again today. levophed was restarted but will aggressively wean 11/30: Patient failed SBT. Continue supportive care. Started gabapentin today Hospitalist Physical - Physical exam Narrative exam: General appearance: Present: no acute distress, other (On the vent) - EENT Eyes: Present: PERRL, EOM intact ENT: poor dentition - Neck Neck: Present: normal ROM - Respiratory Respiratory effort: normal Respiratory: bilateral: diminished - Cardiovascular Rhythm: regular Heart Sounds: Present: S1 & S2. Absent: systolic murmur, diastolic murmur - Extremities Extremities: no ischemia, pulses intact, pulses symmetrical, normal temperature, normal color Peripheral Pulses: within normal limits - Abdominal General gastrointestinal: soft, non-tender, non-distended, normal bowel sounds - Integumentary Integumentary: Present: warm, dry - Psychiatric Psychiatric: cooperative - Neurologic Neurologic: CNII-XII intact - Allied Health Allied health notes reviewed: nursing, RT, social work - Constitutional Vitals: Temp Pulse Resp BP Pulse Ox 99.3 F 82 20 102/49 99 11/30/21 08:00 11/30/21 16:04 11/30/21 16:04 11/30/21 16:04 11/30/21 16:04 General appearance: Present: no acute distress, other (On the vent) HEART Score - HEART Score Troponin: Troponin T 0.045 ng/mL (0.00-0.029) H 11/29/21 20:15 Results - Labs CBC & Chem 7: 11/30/21 05:40 11/30/21 05:40 Labs: Laboratory Last Values WBC 12.6 K/mm3 (4.5-11.0) H 11/30/21 05:40 RBC 3.41 M/mm3 (3.65-5.03) L 11/30/21 05:40 Hgb 9.1 gm/dl (10.1-14.3) L 11/30/21 05:40 Hct 28.9 % (30.3-42.9) L 11/30/21 05:40 MCV 85 fl (79-97) 11/30/21 05:40 MCH 27 pg (28-32) L 11/30/21 05:40 MCHC 32 % (30-34) 11/30/21 05:40 RDW 20.4 % (13.2-15.2) H 11/30/21 05:40 Plt Count 267 K/mm3 (140-440) 11/30/21 05:40 Add Manual Diff Complete 11/16/21 15:25 Total Counted 100 11/16/21 15:25 Seg Neutrophils % Icer Hand 11/06/21 15:50 Seg Neuts % (Manual) 87.0 % (40.0-70.0) H 11/16/21 15:25 Band Neutrophils % 0 % 11/16/21 15:25 Lymphocytes % (Manual) 8.0 % (13.4-35.0) L 11/16/21 15:25 Reactive Lymphs % (Man) 0 % 11/16/21 15:25 Monocytes % (Manual) 5.0 % (0.0-7.3) 11/16/21 15:25 Eosinophils % (Manual) 0 % (0.0-4.3) 11/16/21 15:25 Basophils % (Manual) 0 % (0.0-1.8) 11/16/21 15:25 Metamyelocytes % 0 % 11/16/21 15:25 Myelocytes % 0 % 11/16/21 15:25 Promyelocytes % 0 % 11/16/21 15:25 Blast Cells % 0 % 11/16/21 15:25 Nucleated RBC % Not Reportable 11/16/21 15:25 Seg Neutrophils # Man 15.0 K/mm3 (1.8-7.7) H 11/16/21 15:25 Band Neutrophils # 0.0 K/mm3 11/16/21 15:25 Lymphocytes # (Manual) 1.4 K/mm3 (1.2-5.4) 11/16/21 15:25 Abs React Lymphs (Man) 0.0 K/mm3 11/16/21 15:25 Monocytes # (Manual) 0.9 K/mm3 (0.0-0.8) H 11/16/21 15:25 Eosinophils # (Manual) 0.0 K/mm3 (0.0-0.4) 11/16/21 15:25 Basophils # (Manual) 0.0 K/mm3 (0.0-0.1) 11/16/21 15:25 Metamyelocytes # 0.0 K/mm3 11/16/21 15:25 Myelocytes # 0.0 K/mm3 11/16/21 15:25 Promyelocytes # 0.0 K/mm3 11/16/21 15:25 Blast Cells # 0.0 K/mm3 11/16/21 15:25 WBC Morphology Not Reportable 11/16/21 15:25 Hypersegmented Neuts Not Reportable 11/16/21 15:25 Hyposegmented Neuts Not Reportable 11/16/21 15:25 Hypogranular Neuts Not Reportable 11/16/21 15:25 Smudge Cells Not Reportable 11/16/21 15:25 Toxic Granulation Not Reportable 11/16/21 15:25 Toxic Vacuolation Not Reportable 11/16/21 15:25 Dohle Bodies Not Reportable 11/16/21 15:25 Pelger-Huet Anomaly Not Reportable 11/16/21 15:25 Irina Rods Not Reportable 11/16/21 15:25 Platelet Estimate Consistent w auto 11/16/21 15:25 Clumped Platelets Rare 11/16/21 15:25 Plt Clumps, EDTA Not Reportable 11/16/21 15:25 Large Platelets Not Reportable 11/16/21 15:25 Giant Platelets Not Reportable 11/16/21 15:25 Platelet Satelliting Not Reportable 11/16/21 15:25 Plt Morphology Comment Not Reportable 11/16/21 15:25 RBC Morphology Not Reportable 11/16/21 15:25 Dimorphic RBCs Not Reportable 11/16/21 15:25 Polychromasia Not Reportable 11/16/21 15:25 Hypochromasia 2+ 11/16/21 15:25 Poikilocytosis Not Reportable 11/16/21 15:25 Anisocytosis 2+ 11/16/21 15:25 Microcytosis Not Reportable 11/16/21 15:25 Macrocytosis Not Reportable 11/16/21 15:25 Spherocytes Not Reportable 11/16/21 15:25 Pappenheimer Bodies Not Reportable 11/16/21 15:25 Sickle Cells Not Reportable 11/16/21 15:25 Target Cells 2+ 11/16/21 15:25 Tear Drop Cells Not Reportable 11/16/21 15:25 Ovalocytes Not Reportable 11/16/21 15:25 Helmet Cells Not Reportable 11/16/21 15:25 Odonnell-Harman Bodies Not Reportable 11/16/21 15:25 Anthony Rings Not Reportable 11/16/21 15:25 Spring Cells Not Reportable 11/16/21 15:25 Bite Cells Not Reportable 11/16/21 15:25 Crenated Cell Not Reportable 11/16/21 15:25 Elliptocytes Not Reportable 11/16/21 15:25 Acanthocytes (Spur) Not Reportable 11/16/21 15:25 Rouleaux Not Reportable 11/16/21 15:25 Hemoglobin C Crystals Not Reportable 11/16/21 15:25 Schistocytes Not Reportable 11/16/21 15:25 Malaria parasites Not Reportable 11/16/21 15:25 Godfrey Bodies Not Reportable 11/16/21 15:25 Hem Pathologist Commnt No 11/16/21 15:25 PT 16.9 Sec. (12.2-14.9) H 11/26/21 05:00 INR 1.24 (0.87-1.13) H 11/26/21 05:00 APTT 29.2 Sec. (24.2-36.6) 11/26/21 05:00 D-Dimer 2655.00 ng/mlDDU (0-234) H 11/11/21 04:28 ABG pH 7.449 pH Units (7.350-7.450) 11/21/21 16:00 ABG pCO2 32.1 mm Hg 11/21/21 16:00 ABG pO2 114.2 mm Hg (80.0-90.0) H 11/21/21 16:00 ABG HCO3 21.8 mmol/L (20.0-26.0) 11/21/21 16:00 ABG O2 Saturation 98.3 % (95.0-99.0) 11/21/21 16:00 ABG O2 Content 12.5 (0.0-44) 11/21/21 16:00 ABG Base Excess -1.7 mmol/L (-2.0-3.0) 11/21/21 16:00 ABG Hemoglobin 9.1 gm/dl (12.0-16.0) L 11/21/21 16:00 ABG Carboxyhemoglobin 1.9 % (0.0-5.0) 11/21/21 16:00 ABG Methemoglobin 0.5 % (0.0-1.5) 11/21/21 16:00 Oxyhemoglobin 96.0 % (95.0-99.0) 11/21/21 16:00 FiO2 30 % 11/21/21 16:00 Sodium 139 mmol/L (137-145) 11/30/21 05:40 Potassium 4.3 mmol/L (3.6-5.0) 11/30/21 05:40 Chloride 102.1 mmol/L (98-107) 11/30/21 05:40 Carbon Dioxide 28 mmol/L (22-30) 11/30/21 05:40 Anion Gap 13 mmol/L 11/30/21 05:40 BUN 24 mg/dL (7-17) H 11/30/21 05:40 Creatinine 0.6 mg/dL (0.6-1.2) 11/30/21 05:40 Estimated GFR > 60 ml/min 11/30/21 05:40 BUN/Creatinine Ratio 40 % 11/30/21 05:40 Glucose 131 mg/dL (65-100) H 11/30/21 05:40 POC Glucose 114 mg/dL (70-105) H 11/30/21 16:51 Lactic Acid 3.70 mmol/L (0.7-2.0) H* 11/03/21 22:32 Calcium 7.6 mg/dL (8.4-10.2) L 11/30/21 05:40 Phosphorus 3.00 mg/dL (2.5-4.5) 11/29/21 03:20 Magnesium 2.00 mg/dL (1.7-2.3) 11/29/21 03:20 Ferritin 52.6 ng/mL (10.0-200.0) 11/05/21 06:11 Total Bilirubin 0.50 mg/dL (0.1-1.2) 11/17/21 05:56 Direct Bilirubin < 0.2 mg/dL (0-0.2) 11/11/21 04:28 Indirect Bilirubin 0.1 mg/dL 11/11/21 04:28 AST 36 units/L (5-40) 11/17/21 05:56 ALT 47 units/L (7-56) 11/17/21 05:56 Alkaline Phosphatase 107 units/L (35-129) 11/17/21 05:56 Ammonia 42.0 umol/L (25-60) 11/10/21 14:08 Lactate Dehydrogenase 187 units/L (91-180) H 11/05/21 06:11 Troponin T 0.045 ng/mL (0.00-0.029) H 11/29/21 20:15 C-Reactive Protein 22.20 mg/dL (0.00-1.30) H 11/05/21 06:11 NT-Pro-B Natriuret Pep 7895 pg/mL (0-900) H 11/03/21 22:32 Total Protein 5.1 g/dL (6.3-8.2) L 11/17/21 05:56 Albumin 2.2 g/dL (3.9-5) L 11/17/21 05:56 Albumin/Globulin Ratio 0.8 % 11/17/21 05:56 Triglycerides 59 mg/dL (2-149) 11/29/21 20:15 Cholesterol 74 mg/dL (50-199) 11/29/21 20:15 LDL Cholesterol Direct 25 mg/dL (50-130) L 11/29/21 20:15 HDL Cholesterol 41 mg/dL (40-59) 11/29/21 20:15 Cholesterol/HDL Ratio 1.80 % 11/29/21 20:15 Vitamin B12 1823 pg/mL (211-911) H 11/10/21 14:08 TSH 1.510 mlU/mL (0.270-4.200) 11/10/21 14:08 Urine Color Yellow (Yellow) 11/11/21 09:00 Urine Turbidity Slightly-cloudy (Clear) 11/11/21 09:00 Urine pH 5.0 (5.0-7.0) 11/11/21 09:00 Ur Specific [place] 1.009 (1.003-1.030) 11/11/21 09:00 Urine Protein <15 mg/dl mg/dL (Negative) 11/11/21 09:00 Urine Glucose (UA) Neg mg/dL (Negative) 11/11/21 09:00 Urine Ketones Neg mg/dL (Negative) 11/11/21 09:00 Urine Blood Mod (Negative) 11/11/21 09:00 Urine Nitrite Neg (Negative) 11/11/21 09:00 Urine Bilirubin Neg (Negative) 11/11/21 09:00 Urine Urobilinogen < 2.0 mg/dL (<2.0) 11/11/21 09:00 Ur Leukocyte Esterase Neg (Negative) 11/11/21 09:00 Urine WBC (Auto) < 1.0 /HPF (0.0-6.0) 11/11/21 09:00 Urine RBC (Auto) < 1.0 /HPF (0.0-6.0) 11/11/21 09:00 Coronavirus (PCR) Negative (Negative) 11/10/21 08:30 Blood Type O POSITIVE 11/18/21 10:45 Antibody Screen Negative 11/18/21 10:45 Crossmatch See Detail 11/18/21 10:45 Gamble/IV: Voiding Method Indwelling Catheter Active Medications - Current Medications Current Medications: Generic Name Dose Route Start Last Admin Trade Name Freq PRN Reason Stop Dose Admin Acetaminophen 650 mg 11/04/21 02:03 11/23/21 16:26 Acetaminophen 325 Mg Tab PO 650 mg Q6H PRN Administration Pain MILD(1-3)/Fever >100.5/RODRIGUEZ Hydrocodone Bitart/Acetaminophen 1 each 11/21/21 10:00 11/30/21 13:19 Hydrocodone/Acetaminophen 10-325mg Tab FEEDTUBE 1 each TID YOSSI Administration Lipase/Protease/Amylase 1 each 11/08/21 11:09 Lipase 10,500/Protease 25,000/Amylase 43,750 (Units) Dr Lema FEEDTUBE PRN PRN For Clogged Feeding Tube Buspirone HCl 7.5 mg 11/17/21 22:00 11/30/21 10:05 Buspirone 5 Mg Tab PO 7.5 mg BID YOSSI Administration Dextrose 0 ml 11/10/21 10:52 11/21/21 16:27 Dextrose 10% *Hypoglycemia IV 50 ml PRN PRN Administration Hypoglycemia Fentanyl 1 applic 11/17/21 13:00 11/29/21 09:55 Fentanyl 25 Mcg/Hr Patch 72hr TD 1 applic Q3D YOSSI Administration Gabapentin 100 mg 12/01/21 10:00 Gabapentin 100 Mg Cap PO QDAY YOSSI Hydrophilic Ointment 1 applic 11/06/21 04:02 Lip Therapy Vaseline TP Q2HR PRN Dry Lips NORepinephrine/NS 8 MG-250 ML 8 mg in 250 mls @ 3.75 mls/hr 11/29/21 00:00 11/30/21 08:17 Norepinephrine/Ns 8 Mg-250 Ml (Double Conc) IV 0 mcg/min TITRATE YOSSI 0 mls/hr Titration Protocol 2 MCG/MIN Insulin Human Lispro 0 unit 11/06/21 12:00 11/30/21 16:59 Insulin Lispro 100 Unit/Ml SUB-Q Not Given Q6HR [facility] Protocol Lansoprazole 30 mg 11/24/21 22:00 11/30/21 10:05 Lansoprazole 30 Mg Solutab FEEDTUBE 30 mg BID YOSSI Administration Levothyroxine Sodium 125 mcg 11/05/21 07:00 11/30/21 05:56 Levothyroxine 125 Mcg Tab PO 125 mcg DAILY@0600 YOSSI Administration Magnesium Hydroxide 30 ml 11/04/21 02:03 Magnesium Hydroxide (Mom) Oral Liqd Udc PO Q4H PRN Constipation Metoprolol Tartrate 12.5 mg 11/21/21 10:00 11/30/21 10:06 Metoprolol Tartrate 25 Mg Tab PO 12.5 mg BID YOSSI Administration Multi-Ingred Cream/Lotion/Oil/Oint 1 applic 11/06/21 04:02 Mineral Oil/Petrolatum, White Ophth Oint 3.5 Gm OU Q4HR PRN Dry Eye(s) Nitroglycerin 0.4 mg 11/30/21 11:36 Nitroglycerin 0.4 Mg Tab Subl SL .Q5MIN PRN Chest Pain Ondansetron HCl 4 mg 11/04/21 02:03 11/05/21 15:48 Ondansetron 4 Mg/2 Ml Inj IV 4 mg Q8H PRN Administration Nausea And Vomiting Pravastatin Sodium 20 mg 11/18/21 22:00 11/29/21 22:11 Pravastatin 20 Mg Tab PO 20 mg QHS YOSSI Administration Quetiapine Fumarate 50 mg 11/20/21 22:00 11/30/21 10:06 Quetiapine 25 Mg Tab PO 50 mg BID YOSSI Administration Senna 17.6 mg 11/08/21 22:00 11/30/21 10:05 Sennosides Oral Liqd 8.8 Mg/5 Ml Oral Liqd PO 17.6 mg Q12HR YOSSI Administration Simple Syrup 15 ml 11/08/21 11:09 Simple Syrup 15 Ml FEEDTUBE PRN PRN Hypoglycemia Simple Syrup 30 ml 11/08/21 11:09 Simple Syrup 15 Ml FEEDTUBE PRN PRN Hypoglycemia Sodium Bicarbonate 325 mg 11/08/21 11:09 Sodium Bicarbonate 325 Mg Tab FEEDTUBE PRN PRN For Clogged Feeding Tube Sodium Chloride 10 ml 11/04/21 10:00 11/30/21 10:06 Sodium Chloride 0.9% 10 Ml Flush Syringe IV 10 ml BID YOSSI Administration Sodium Chloride 10 ml 11/04/21 02:03 Sodium Chloride 0.9% 10 Ml Flush Syringe IV PRN PRN LINE FLUSH Sodium Chloride 10 ml 11/10/21 09:57 11/17/21 20:47 Sodium Chloride 0.9% 50 Ml Ivpb IV 10 ml PRN PRN Administration FLUSH Sucralfate 1 gm 11/18/21 16:30 11/30/21 13:20 Sucralfate 1 Gm/10 Ml Oral Liqd PO 1 gm ACHS YOSSI Administration Nutrition/Malnutrition Assess - Dietary Evaluation Nutrition/Malnutrition Findings: Nutrition Notes Start: 11/04/21 17:16 Freq: Status: Active Protocol: Document 11/24/21 14:48 YOVANI (Rec: 11/24/21 14:56 [facility] [id number]) Nutrition Notes Initial or Follow up Reassessment Current Diagnosis Diabetes,Hypertension,Heart Failure,Respiratory Failure Other Pertinent Diagnosis Bilat pneu, (R) pneumothorax, Septic shock Current Diet TF - Glucerna 1.2 at 42ml/hr Labs/Tests Reviewed Pertinent Medications Sucralfate Height 5 ft Weight 62.4 kg [place] Body Weight (kg) 45.45 BMI 26.9 Weight Status Appropriate Subjective/Other Information Observed TF infusing at goal rate. Pt remains on vent support. Trach/PEG placement pending. Percent of energy/protein needs met: 100% energy 81% pro Burn Absent Trauma Absent #1 Nutrition Diagnosis Inadequate oral intake Diagnosis Progress(for reassessment Continues documentation) Is patient on ventilator? Yes Is Patient Ambulatory and/or Out of Bed No REE-(Casey-[place]. Til[place]-confined to bed) 1207.824 Calculation Used for Recommendations Casey-St Jeor Additional Notes Pro needs 1.2-2 g/k-125g/ day Fluid needs 1ml/kcal Nutrition Intervention Nutrition Support: Continue Glucerna 1.2 at 42ml/ hr with 75ml water flush q4h. Kcal 1,210 Protein (gm) 60 Carbohydrates (gm) 115 Fat (gm) 60 Fluid (mL) 811 Fiber (gm) 16 Goal #1 TF tolerance Goal #2 TF to meet at least 75% energy and pro needs Follow-Up By: 12/01/21 Additional Comments F/U: stable TF, trach/PEG placement, vent status, wt <FREDERICK DALTON - Last Filed: 12/01/21 12:08> Assessment and Plan Assessment and plan: I saw and evaluated the patient. Discussed with the nurse practitioner and agree with their findings and plan as documented in this note. Hospitalist Physical - Constitutional Vitals: Temp Pulse Resp BP Pulse Ox 98 F 85 15 111/47 100 12/01/21 08:00 12/01/21 10:41 12/01/21 08:00 12/01/21 10:41 12/01/21 08:46 HEART Score - HEART Score Troponin: Troponin T 0.045 ng/mL (0.00-0.029) H 11/29/21 20:15 Results - Labs CBC & Chem 7: 12/01/21 05:00 12/01/21 05:00 Labs: Laboratory Last Values WBC 8.9 K/mm3 (4.5-11.0) 12/01/21 05:00 RBC 2.97 M/mm3 (3.65-5.03) L 12/01/21 05:00 Hgb 8.0 gm/dl (10.1-14.3) L 12/01/21 05:00 Hct 25.0 % (30.3-42.9) L 12/01/21 05:00 MCV 84 fl (79-97) 12/01/21 05:00 MCH 27 pg (28-32) L 12/01/21 05:00 MCHC 32 % (30-34) 12/01/21 05:00 RDW 20.8 % (13.2-15.2) H 12/01/21 05:00 Plt Count 202 K/mm3 (140-440) 12/01/21 05:00 Add Manual Diff Complete 11/16/21 15:25 Total Counted 100 11/16/21 15:25 Seg Neutrophils % Icer Hand 11/06/21 15:50 Seg Neuts % (Manual) 87.0 % (40.0-70.0) H 11/16/21 15:25 Band Neutrophils % 0 % 11/16/21 15:25 Lymphocytes % (Manual) 8.0 % (13.4-35.0) L 11/16/21 15:25 Reactive Lymphs % (Man) 0 % 11/16/21 15:25 Monocytes % (Manual) 5.0 % (0.0-7.3) 11/16/21 15:25 Eosinophils % (Manual) 0 % (0.0-4.3) 11/16/21 15:25 Basophils % (Manual) 0 % (0.0-1.8) 11/16/21 15:25 Metamyelocytes % 0 % 11/16/21 15:25 Myelocytes % 0 % 11/16/21 15:25 Promyelocytes % 0 % 11/16/21 15:25 Blast Cells % 0 % 11/16/21 15:25 Nucleated RBC % Not Reportable 11/16/21 15:25 Seg Neutrophils # Man 15.0 K/mm3 (1.8-7.7) H 11/16/21 15:25 Band Neutrophils # 0.0 K/mm3 11/16/21 15:25 Lymphocytes # (Manual) 1.4 K/mm3 (1.2-5.4) 11/16/21 15:25 Abs React Lymphs (Man) 0.0 K/mm3 11/16/21 15:25 Monocytes # (Manual) 0.9 K/mm3 (0.0-0.8) H 11/16/21 15:25 Eosinophils # (Manual) 0.0 K/mm3 (0.0-0.4) 11/16/21 15:25 Basophils # (Manual) 0.0 K/mm3 (0.0-0.1) 11/16/21 15:25 Metamyelocytes # 0.0 K/mm3 11/16/21 15:25 Myelocytes # 0.0 K/mm3 11/16/21 15:25 Promyelocytes # 0.0 K/mm3 11/16/21 15:25 Blast Cells # 0.0 K/mm3 11/16/21 15:25 WBC Morphology Not Reportable 11/16/21 15:25 Hypersegmented Neuts Not Reportable 11/16/21 15:25 Hyposegmented Neuts Not Reportable 11/16/21 15:25 Hypogranular Neuts Not Reportable 11/16/21 15:25 Smudge Cells Not Reportable 11/16/21 15:25 Toxic Granulation Not Reportable 11/16/21 15:25 Toxic Vacuolation Not Reportable 11/16/21 15:25 Dohle Bodies Not Reportable 11/16/21 15:25 Pelger-Huet Anomaly Not Reportable 11/16/21 15:25 Irina Rods Not Reportable 11/16/21 15:25 Platelet Estimate Consistent w auto 11/16/21 15:25 Clumped Platelets Rare 11/16/21 15:25 Plt Clumps, EDTA Not Reportable 11/16/21 15:25 Large Platelets Not Reportable 11/16/21 15:25 Giant Platelets Not Reportable 11/16/21 15:25 Platelet Satelliting Not Reportable 11/16/21 15:25 Plt Morphology Comment Not Reportable 11/16/21 15:25 RBC Morphology Not Reportable 11/16/21 15:25 Dimorphic RBCs Not Reportable 11/16/21 15:25 Polychromasia Not Reportable 11/16/21 15:25 Hypochromasia 2+ 11/16/21 15:25 Poikilocytosis Not Reportable 11/16/21 15:25 Anisocytosis 2+ 11/16/21 15:25 Microcytosis Not Reportable 11/16/21 15:25 Macrocytosis Not Reportable 11/16/21 15:25 Spherocytes Not Reportable 11/16/21 15:25 Pappenheimer Bodies Not Reportable 11/16/21 15:25 Sickle Cells Not Reportable 11/16/21 15:25 Target Cells 2+ 11/16/21 15:25 Tear Drop Cells Not Reportable 11/16/21 15:25 Ovalocytes Not Reportable 11/16/21 15:25 Helmet Cells Not Reportable 11/16/21 15:25 Odonnell-Harman Bodies Not Reportable 11/16/21 15:25 Anthony Rings Not Reportable 11/16/21 15:25 Malcom Cells Not Reportable 11/16/21 15:25 Bite Cells Not Reportable 11/16/21 15:25 Crenated Cell Not Reportable 11/16/21 15:25 Elliptocytes Not Reportable 11/16/21 15:25 Acanthocytes (Spur) Not Reportable 11/16/21 15:25 Rouleaux Not Reportable 11/16/21 15:25 Hemoglobin C Crystals Not Reportable 11/16/21 15:25 Schistocytes Not Reportable 11/16/21 15:25 Malaria parasites Not Reportable 11/16/21 15:25 Godfrey Bodies Not Reportable 11/16/21 15:25 Hem Pathologist Commnt No 11/16/21 15:25 PT 16.9 Sec. (12.2-14.9) H 11/26/21 05:00 INR 1.24 (0.87-1.13) H 11/26/21 05:00 APTT 29.2 Sec. (24.2-36.6) 11/26/21 05:00 D-Dimer 2655.00 ng/mlDDU (0-234) H 11/11/21 04:28 ABG pH 7.449 pH Units (7.350-7.450) 11/21/21 16:00 ABG pCO2 32.1 mm Hg 11/21/21 16:00 ABG pO2 114.2 mm Hg (80.0-90.0) H 11/21/21 16:00 ABG HCO3 21.8 mmol/L (20.0-26.0) 11/21/21 16:00 ABG O2 Saturation 98.3 % (95.0-99.0) 11/21/21 16:00 ABG O2 Content 12.5 (0.0-44) 11/21/21 16:00 ABG Base Excess -1.7 mmol/L (-2.0-3.0) 11/21/21 16:00 ABG Hemoglobin 9.1 gm/dl (12.0-16.0) L 11/21/21 16:00 ABG Carboxyhemoglobin 1.9 % (0.0-5.0) 11/21/21 16:00 ABG Methemoglobin 0.5 % (0.0-1.5) 11/21/21 16:00 Oxyhemoglobin 96.0 % (95.0-99.0) 11/21/21 16:00 FiO2 30 % 11/21/21 16:00 Sodium 136 mmol/L (137-145) L 12/01/21 05:00 Potassium 4.2 mmol/L (3.6-5.0) 12/01/21 05:00 Chloride 98.9 mmol/L (98-107) 12/01/21 05:00 Carbon Dioxide 27 mmol/L (22-30) 12/01/21 05:00 Anion Gap 14 mmol/L 12/01/21 05:00 BUN 24 mg/dL (7-17) H 12/01/21 05:00 Creatinine 0.6 mg/dL (0.6-1.2) 12/01/21 05:00 Estimated GFR > 60 ml/min 12/01/21 05:00 BUN/Creatinine Ratio 40 % 12/01/21 05:00 Glucose 117 mg/dL (65-100) H 12/01/21 05:00 POC Glucose 107 mg/dL (70-105) H 12/01/21 11:54 Lactic Acid 3.70 mmol/L (0.7-2.0) H* 11/03/21 22:32 Calcium 7.5 mg/dL (8.4-10.2) L 12/01/21 05:00 Phosphorus 3.30 mg/dL (2.5-4.5) 12/01/21 05:00 Magnesium 1.60 mg/dL (1.7-2.3) L 12/01/21 05:00 Ferritin 52.6 ng/mL (10.0-200.0) 11/05/21 06:11 Total Bilirubin 0.50 mg/dL (0.1-1.2) 11/17/21 05:56 Direct Bilirubin < 0.2 mg/dL (0-0.2) 11/11/21 04:28 Indirect Bilirubin 0.1 mg/dL 11/11/21 04:28 AST 36 units/L (5-40) 11/17/21 05:56 ALT 47 units/L (7-56) 11/17/21 05:56 Alkaline Phosphatase 107 units/L (35-129) 11/17/21 05:56 Ammonia 42.0 umol/L (25-60) 11/10/21 14:08 Lactate Dehydrogenase 187 units/L (91-180) H 11/05/21 06:11 Troponin T 0.045 ng/mL (0.00-0.029) H 11/29/21 20:15 C-Reactive Protein 22.20 mg/dL (0.00-1.30) H 11/05/21 06:11 NT-Pro-B Natriuret Pep 7895 pg/mL (0-900) H 11/03/21 22:32 Total Protein 5.1 g/dL (6.3-8.2) L 11/17/21 05:56 Albumin 2.2 g/dL (3.9-5) L 11/17/21 05:56 Albumin/Globulin Ratio 0.8 % 11/17/21 05:56 Triglycerides 59 mg/dL (2-149) 11/29/21 20:15 Cholesterol 74 mg/dL (50-199) 11/29/21 20:15 LDL Cholesterol Direct 25 mg/dL (50-130) L 11/29/21 20:15 HDL Cholesterol 41 mg/dL (40-59) 11/29/21 20:15 Cholesterol/HDL Ratio 1.80 % 11/29/21 20:15 Vitamin B12 1823 pg/mL (211-911) H 11/10/21 14:08 TSH 1.510 mlU/mL (0.270-4.200) 11/10/21 14:08 Urine Color Yellow (Yellow) 11/11/21 09:00 Urine Turbidity Slightly-cloudy (Clear) 11/11/21 09:00 Urine pH 5.0 (5.0-7.0) 11/11/21 09:00 Ur Specific [place] 1.009 (1.003-1.030) 11/11/21 09:00 Urine Protein <15 mg/dl mg/dL (Negative) 11/11/21 09:00 Urine Glucose (UA) Neg mg/dL (Negative) 11/11/21 09:00 Urine Ketones Neg mg/dL (Negative) 11/11/21 09:00 Urine Blood Mod (Negative) 11/11/21 09:00 Urine Nitrite Neg (Negative) 11/11/21 09:00 Urine Bilirubin Neg (Negative) 11/11/21 09:00 Urine Urobilinogen < 2.0 mg/dL (<2.0) 11/11/21 09:00 Ur Leukocyte Esterase Neg (Negative) 11/11/21 09:00 Urine WBC (Auto) < 1.0 /HPF (0.0-6.0) 11/11/21 09:00 Urine RBC (Auto) < 1.0 /HPF (0.0-6.0) 11/11/21 09:00 Coronavirus (PCR) Negative (Negative) 11/10/21 08:30 Blood Type O POSITIVE 11/18/21 10:45 Antibody Screen Negative 11/18/21 10:45 Crossmatch See Detail 11/18/21 10:45 Gamble/IV: Voiding Method Indwelling Catheter Active Medications - Current Medications Current Medications: Generic Name Dose Route Start Last Admin Trade Name Freq PRN Reason Stop Dose Admin Acetaminophen 650 mg 11/04/21 02:03 11/23/21 16:26 Acetaminophen 325 Mg Tab PO 650 mg Q6H PRN Administration Pain MILD(1-3)/Fever >100.5/RODRIGUEZ Hydrocodone Bitart/Acetaminophen 1 each 11/21/21 10:00 12/01/21 08:51 Hydrocodone/Acetaminophen 10-325mg Tab FEEDTUBE 1 each TID YOSSI Administration Lipase/Protease/Amylase 1 each 11/08/21 11:09 Lipase 10,500/Protease 25,000/Amylase 43,750 (Units) Dr Lema FEEDTUBE PRN PRN For Clogged Feeding Tube Buspirone HCl 7.5 mg 11/17/21 22:00 12/01/21 10:41 Buspirone 5 Mg Tab PO 7.5 mg BID YOSSI Administration Dextrose 0 ml 11/10/21 10:52 11/21/21 16:27 Dextrose 10% *Hypoglycemia IV 50 ml PRN PRN Administration Hypoglycemia Fentanyl 1 applic 11/17/21 13:00 11/29/21 09:55 Fentanyl 25 Mcg/Hr Patch 72hr TD 1 applic Q3D YOSSI Administration Gabapentin 100 mg 12/01/21 10:00 12/01/21 10:41 Gabapentin 100 Mg Cap PO 100 mg QDAY YOSSI Administration Hydrophilic Ointment 1 applic 11/06/21 04:02 Lip Therapy Vaseline TP Q2HR PRN Dry Lips NORepinephrine/NS 8 MG-250 ML 8 mg in 250 mls @ 3.75 mls/hr 11/29/21 00:00 11/30/21 08:17 Norepinephrine/Ns 8 Mg-250 Ml (Double Conc) IV 0 mcg/min TITRATE YOSSI 0 mls/hr Titration Protocol 2 MCG/MIN Magnesium Sulfate 4 gm in 100 mls @ 25 mls/hr 12/01/21 09:00 12/01/21 10:40 Magnesium Sulfate 4gm/100ml IV 12/01/21 12:59 25 mls/hr ONCE ONE Administration Insulin Human Lispro 0 unit 11/06/21 12:00 12/01/21 05:37 Insulin Lispro 100 Unit/Ml SUB-Q Not Given Q6HR [facility] Protocol Lansoprazole 30 mg 11/24/21 22:00 12/01/21 10:40 Lansoprazole 30 Mg Solutab FEEDTUBE 30 mg BID YOSSI Administration Levothyroxine Sodium 125 mcg 11/05/21 07:00 12/01/21 05:37 Levothyroxine 125 Mcg Tab PO 125 mcg DAILY@0600 [facility] Administration Magnesium Hydroxide 30 ml 11/04/21 02:03 Magnesium Hydroxide (Mom) Oral Liqd Udc PO Q4H PRN Constipation Metoprolol Tartrate 12.5 mg 11/21/21 10:00 12/01/21 10:41 Metoprolol Tartrate 25 Mg Tab PO 12.5 mg BID [facility] Administration Multi-Ingred Cream/Lotion/Oil/Oint 1 applic 11/06/21 04:02 Mineral Oil/Petrolatum, White Ophth Oint 3.5 Gm OU Q4HR PRN Dry Eye(s) Nitroglycerin 0.4 mg 11/30/21 11:36 Nitroglycerin 0.4 Mg Tab Subl SL .Q5MIN PRN Chest Pain Ondansetron HCl 4 mg 11/04/21 02:03 11/05/21 15:48 Ondansetron 4 Mg/2 Ml Inj IV 4 mg Q8H PRN Administration Nausea And Vomiting Pravastatin Sodium 20 mg 11/18/21 22:00 11/30/21 21:47 Pravastatin 20 Mg Tab PO 20 mg QHS [facility] Administration Quetiapine Fumarate 50 mg 11/20/21 22:00 12/01/21 10:40 Quetiapine 25 Mg Tab PO 50 mg BID YOSSI Administration Senna 17.6 mg 11/08/21 22:00 12/01/21 10:40 Sennosides Oral Liqd 8.8 Mg/5 Ml Oral Liqd PO 17.6 mg Q12HR YOSSI Administration Simple Syrup 15 ml 11/08/21 11:09 Simple Syrup 15 Ml FEEDTUBE PRN PRN Hypoglycemia Simple Syrup 30 ml 11/08/21 11:09 Simple Syrup 15 Ml FEEDTUBE PRN PRN Hypoglycemia Sodium Bicarbonate 325 mg 11/08/21 11:09 Sodium Bicarbonate 325 Mg Tab FEEDTUBE PRN PRN For Clogged Feeding Tube Sodium Chloride 10 ml 11/04/21 10:00 12/01/21 10:42 Sodium Chloride 0.9% 10 Ml Flush Syringe IV 10 ml BID YOSSI Administration Sodium Chloride 10 ml 11/04/21 02:03 Sodium Chloride 0.9% 10 Ml Flush Syringe IV PRN PRN LINE FLUSH Sodium Chloride 10 ml 11/10/21 09:57 11/17/21 20:47 Sodium Chloride 0.9% 50 Ml Ivpb IV 10 ml PRN PRN Administration FLUSH Sucralfate 1 gm 11/18/21 16:30 12/01/21 08:51 Sucralfate 1 Gm/10 Ml Oral Liqd PO 1 gm ACHS YOSSI Administration Nutrition/Malnutrition Assess - Dietary Evaluation Nutrition/Malnutrition Findings: Nutrition Notes Start: 11/04/21 17:16 Freq: Status: Active Protocol: Document 11/24/21 14:48 YOVANI (Rec: 11/24/21 14:56 [facility] [id number]) Nutrition Notes Initial or Follow up Reassessment Current Diagnosis Diabetes,Hypertension,Heart Failure,Respiratory Failure Other Pertinent Diagnosis Bilat pneu, (R) pneumothorax, Septic shock Current Diet TF - Glucerna 1.2 at 42ml/hr Labs/Tests Reviewed Pertinent Medications Sucralfate Height 5 ft Weight 62.4 kg [place] Body Weight (kg) 45.45 BMI 26.9 Weight Status Appropriate Subjective/Other Information Observed TF infusing at goal rate. Pt remains on vent support. Trach/PEG placement pending. Percent of energy/protein needs met: 100% energy 81% pro Burn Absent Trauma Absent #1 Nutrition Diagnosis Inadequate oral intake Diagnosis Progress(for reassessment Continues documentation) Is patient on ventilator? Yes Is Patient Ambulatory and/or Out of Bed No REE-([facility]-confined to bed) 1207.824 Calculation Used for Recommendations [facility] Additional Notes Pro needs 1.2-2 g/k-125g/ day Fluid needs 1ml/kcal Nutrition Intervention Nutrition Support: Continue Glucerna 1.2 at 42ml/ hr with 75ml water flush q4h. Kcal 1,210 Protein (gm) 60 Carbohydrates (gm) 115 Fat (gm) 60 Fluid (mL) 811 Fiber (gm) 16 Goal #1 TF tolerance Goal #2 TF to meet at least 75% energy and pro needs Follow-Up By: 12/01/21 Additional Comments F/U: stable TF, trach/PEG placement, vent status, wt
[2021-11-30] MEDS: PRAVASTATIN 20 MG TAB PO SCH (21:47)
[2021-12-01] MEDS: INSULIN LISPRO 100 UNIT/ML SUB-Q SCH ×4 (00:05→18:29)
[2021-12-01] MEDS: LEVOTHYROXINE 125 MCG TAB PO SCH (05:37)
[2021-12-01 06:35] LABS: Mean Corpuscular HGB Conc 32 % (30-34); Mean Corpuscular Volume 84 fl (79-97); Platelet Count 202 K/mm3 (140-440); Red Blood Count 2.97 M/mm3 (3.65-5.03)
[2021-12-01 06:43] LABS: Red Cell Distribution Width 20.8 % (13.2-15.2)
[2021-12-01 06:52] LABS: Blood Urea Nitrogen 24 mg/dL (7-17); Calcium 7.5 mg/dL (8.4-10.2); Hemolysis Index 1
[2021-12-01 06:53] LABS: BUN/Creatinine Ratio 40
[2021-12-01] MEDS: HYDROcodone/ACETAMINOPHEN 10-325MG TAB FEEDTUBE SCH ×3 (08:51→20:15)
[2021-12-01] MEDS: SUCRALFATE 1 GM/10 ML ORAL LIQD PO SCH ×4 (08:51→22:25)
[2021-12-01] MEDS ORDERED: MAGNESIUM SULFATE 4 GM/100 ML BAG IV ONE (09:00)
[2021-12-01] MEDS: QUEtiapine 25 MG TAB PO SCH ×2 (10:40→22:27)
[2021-12-01] MEDS: LANSOPRAZOLE 30 MG SOLUTAB FEEDTUBE SCH ×2 (10:40→22:25)
[2021-12-01] MEDS: SENNOSIDES ORAL LIQD 8.8 MG/5 ML ORAL LIQD PO SCH ×2 (10:40→22:26)
[2021-12-01] MEDS: busPIRone 5 MG TAB PO SCH ×2 (10:41→22:24)
[2021-12-01] MEDS: GABAPENTIN 100 MG CAP PO SCH (10:41)
[2021-12-01] MEDS: METOPROLOL TARTRATE 25 MG TAB PO SCH ×2 (10:41→22:26)
--- NOTE | 2021-12-01 10:41 | Progress Note ---
Assessment and Plan Assessment and plan: This is a 81-year-old female with known history of diabetes mellitus, hypertension, PPM, and arthritis admitted for sepsis and acute hypoxia respiratory failure 2/2 bilateral pneumonia requiring intubation and ventilatory support Hospital Course to date: 11/04/2021: Empiric therapy with iv levaquin/vancomycin. COVID PCR pending. Will consult ID. PCCM consulted, will follow recs. Hypotensive this AM, ordered bolus and fluids at 150 cc/hr. May require pressor support if bp does not improve. 11/05/2021: GBS on bcx +, currently on rocephin IV. Currently on bipap due to respiratory distress overnight. Worsening BL opacities on CXR. May be volume overload vs pneumonia. Unfortunately bp too low for lasix at this point. WIll continue levophed and bipap. Once able to tolerate, may do trial of albumin/lasix. Call attempt made to Niraj, no response. Will try again tomorrow to update. 11/06/2021: Decompensated overnight requiring intubation. CXR shows worsening int erstitial infiltrates. Currenlty on dopamine, levophed, vasopressin. PICC line ordered. Advised RN to place gamble for I/O monitoring. Would benefit from diuresis but very volume overloaded. Prognosis guarded 11/08: Off sedation this am, remains unresponsive only grimace to pain. Hold all sedatives agents for now, patient is off pressors this am. Hypernatremia from today's lab- D5W X1bag, and low K repleted, repeat lab in the am. Severe constipation also noted from KUB, BR added. 11/09: Sudden SPO2 drop in the 60s this am. Patient was manually bagged and deep suctioned. Patient is currently stable on the vent, repeat CXR with no significant change. D/w CCM Mucomyst and brochodilator added. Patient mentation is unchanged, continue to hold off on sedative agents. Neurology consulted. 11/10: Acute DVT noted on bilateral lower extremity Doppler ultrasound therefore she was started on Lovenox treatment dose. Failed SBT. Hypernatremia and hyperchloremia noted, free water flush adjusted. 11/11: Patient noted to be febrile with increasing of the cytosis, UA/BC sent and CXR ordered. ID escalated antibiotics to cefepime. CXR demonstrated mucous plug, bedside bronchoscopy was performed and O ETT was changed over bougie from 6 cm to 7.5. Patient was noted to have a pneumothorax postprocedure and chest tube was placed. Family updated by [facility]. Free water flush increased and will add Jaswant supplementation. 11/12: Patient not noted to follow commands, hypernatremia worsen/persist, incr easing free water flush, potassium and magnesium and phosphorus repleted. Hemoglobin noted to be 7.1/24.5 from 7.03/12 yesterday. We will continue to trend and monitor. Vent changes per [facility]. Repeat CXR showed no residual pneumothorax. Consider waterseal tomorrow. Given persistent leukocytosis a ntibiotics escalated to cefepime per ID. 11/13: Remains on cefepime and vancomycin, vent changes per [facility]. Anemia noted and given 1 unit PRBC. And beta-charleen held in setting of Levophed drip infusi ng. Remains on fentanyl drip. 11/14: Patient put on CPAP trial by [facility], will continue chest tube until after extubation. Will rest on assist control. CT brain was cancelled by sheetmetal trades worker and reordered. 11/15: Patient removed chest tube overnight. Will obtain cxr. remains on low dose levo. CTH completed with no acute findings. RT to place on CPAP. 11/16: Hypernatremia/hyperchloremia noted on the increase of day water flushes. Anemia noted and ordered PRBC. asked RT to place on cpap but not done yet 11/17: Patient remains on the vent, awake and following commands. H&H stable s/p 2units PRBCs. GI on consult, no intervention at this time. Will continue protonix gtt and serial H&H Q6hrs. Keep patient NPO for now, D5w added for hypernatremia and NPO status. Plan for IVC filter placement today by Vascular. 11/18: Patient is s/p IVC filter. H&H continue to trend down, hbg 6.1 this am, 1 unit of PRBCs ordered. Plan for possible EGD today by GI. Keep patient NPO, continue PPI drip and serial H&H Q6hrs. Electrolytes repleted, repeat lab in the am 11/19: S/p EGD- larger duodenal ulcer noted, see operative note. GI recommendations noted also noted. H&H stable this am. Keep patient on protonix gtt for now. Will keep patient NPO, continue IVF and serial H&H for now. Electrolytes repleted, repeat labs in the am 11/20: Very agitated and restless this am, fentanyl gtt resumed. Patient remains on protonix gtt, H&H remains stable. Will switch protonix gtt to IV BID, continue carafate and okay to resume meds at this time. Will F/u with GI to see if TF can be resumed. Gamble was reinserted overnight for retention. Electrolytes repleted, repeat in the am. Plan for possible PST today for possible extubation per [facility]. 11/21: Patient is now on seroquel and patient's home buspar resumed. Patient more calm this morning, fentanyl gtt is off. H&H remains stable and patient is tolerating TF. Patient had a runs of Vtach/PVCs this am, BB added per Cardio. Continue daily PS and wean trial for possible extubation. 11/22: Back on fentanyl gtt overnight , RASS o to -1, following commands. Patient failed PST this am due to increased work of breathing and low SPO2, ABG pending. Patient is also with worsen pitting edema, lasix is still on hold. Will discuss with cardio and CCM to possibly resume lasix. 11/23: MARIA DEL CARMEN overnight. Patient failed PST again this am. Per CCM plan for possible trach and PEG, hold off on IV lasix for now. General surgery consulted and family is aware of possible Trach and PEG. 11/24: Trach/PEG pending this week, continue SBT/SAT as tolerated. No acute events reported overnight. 11/25: Patient was n.p.o. overnight and will remain n.p.o. tonight for trach/PEG tomorrow morning. She failed to support trial again. KUB obtained due to distended belly. 11/26: Patient scheduled for tracheostomy and PEG tube placement today, has been n.p.o. since midnight. No acute events reported overnight. [facility] ordered simethicone scheduled. 11/27: No acute events reported overnight, patient received trach/PEG yesterday. Has been on feedings since last night. Still awaiting LTAC placement. 11/28: Patient magnesium repleted, repeat a.m. labs, SBT 11/29: Patient complains of chest pain but ECG obtained which showed no acute findings, ordered troponin. Patient failed CPAP yesterday and was trialed again today. levophed was restarted but will aggressively wean 11/30: Patient failed SBT. Continue supportive care. Started gabapentin today 12/01: MARIA DEL CARMEN overnight. Continue daily PST. Case management to arrange possible placement Assessment and Plan #Septic Shock POA #Bilateral Pneumonia #Bacteremia - Presented with fevers, leukocytosis, and hypotension - COVID PCR negative - 11/04 Bcult with 3/4 group B strep bacteremia - Repeat Bculture NGTD - 11/04 2D Echo with no evidence of vegetation - ID on consult, appreciate recommendations - Patient completed IV Abx course - F/u on culture data - Trend CBC #Acute Hypoxic Respiratory Failure 11/19 #Bilateral Pleural Effusion #Right Pneumothorax-resolved #Bilateral Pneumonia - COVID PCR negative - CXR shows Bilateral opacities, may be volume overloaded - CCM consulted, appreciate recommendations - Intubated on 11/06, ETT exchanged on 11/11 - 11/11 Bronchoscopy--Complicated by spontaneous pneumothorax - 11/11 S/p chest tube placement for right pneumothorax, removed by patient on 11/15 - 11/26 s/p Tracheostomy and PEGtube placement - This am Vent Setting:CPAP-25%,6 PS-14 - Continue Nebs treatmen - Continue daily PST as tolerated - VAP bundle addressed - Aspiration precaution HOB above 30 - ABG and CXR per CCM - Continue SPO2 monitoring for SPO2 goal above 92% #CHF- EF 30-35% with PPM #Hypotension-Resolved #Septic Kristian-resolved - Was on 3 pressors initially - BP remains stable - SR on the monitor, HR 70-90s - 11/04 Echo-EF 30-35% - Cardiology on consult - Continue beta-charleen - Not on aspirin due to allergy - Statins resumed - Continue blood pressure monitor per protocol - Maintain MAP above 65 #Acute Blood Loss #Acute GI Bleed #Acute Microcytic Anemia - Report of melena &black tarry stools - s/p a total of 5units of PRBCs since admit - H&H remains stable post EGD - GI on consult - 11/18 EGD- Large cratered ulcer in the posterior duodenal bulb about 2 cm in diameter. Visible vessel present. Mild active oozing from the ulcer bed. A total of 3 injections were performed around the ulcer for a total of 2.5 cc of dilute epinephrine and hemostasis was obtained.--> See full report - Protonix gtt switched to IV push BID - Continue Carafate - Patient is tolerating TF - Continue to trend CBC - Transfuse for H&H less than 7 - Hold AC for now #Hyponatremia - FWF adjusted - Strict intake and output - Continue to monitor and replace electrolytes as needed - Trend BMP,mag, & phosp #Urinary Retention - Gamble reinserted on 11/19 for retention - Keep gamble for now, will reassess in 3 to 5days #Acute DVT in RLE - BLE doppler + Acute DVT in the right external iliac vein, common femoral vein, and superior aspect of femoral vein - Was on Therapeutic Lovenox- held to due GI Bleed - 11/17 s/p IVC filter placement by Vascular Surg #Agitation #Acute Encephalopathy-Resolved - Awake and following commands - Continue Buspar and seroquel - CT head noted - Neurology consulted - PRN analgesia for pain management #Transaminitis/Shock Liver - Probably due to bacteria/spetic shock - Continue to Trend LFTs #Endo: h/o DM and hypothyroidism -Continue home Synthroid -Accu-Cheks every 6 -Avoid hypoglycemia The high probability of a clinically significant, sudden or life threatening deterioration of the [multi] system(s) required my full and direct attention, intervention and personal management. The aggregate critical care time was [60] minutes. This time is in addition to time spent performing reported procedures but includes the following: [x] Data Review and interpretation [x] Patient assessment and monitoring of vital signs [x] Documentation [x] Medication orders and management Disposition Plan: ICU Total Time Spent with Patient (Minutes): 60 History Interval history: Patient seen and examined at the bedside. Remains on the vent. Awake and alert, following simple commands. Patient tolerating PST this am. MARIA DEL CARMEN overnight Hospitalist Physical - Constitutional Vitals: Temp Pulse Resp BP Pulse Ox 98 F 83 14 112/48 100 12/01/21 08:00 12/01/21 08:46 12/01/21 08:00 12/01/21 08:46 12/01/21 08:46 General appearance: Present: no acute distress, other (On the vent) - EENT Eyes: Present: PERRL ENT: hearing intact - Neck Neck: Present: normal ROM - Respiratory Respiratory effort: normal Respiratory: bilateral: rhonchi - Cardiovascular Rhythm: regular Heart Sounds: Present: S1 & S2 - Extremities Extremities: no ischemia, pulses intact, pulses symmetrical Extremity abnormal: edema - Peripheral Assessment Generalized Edema Type: Pitting Edema Degree: 2+ Capillary Refill: < 3 seconds Skin Temperature: Warm Peripheral Pulses: within normal limits - Abdominal General gastrointestinal: soft, non-distended, normal bowel sounds - Integumentary Integumentary: Present: warm, dry - Psychiatric Psychiatric: appropriate mood/affect, cooperative - Neurologic Neurologic: moves all extremities - Allied Health Allied health notes reviewed: nursing, case management HEART Score - HEART Score Troponin: Troponin T 0.045 ng/mL (0.00-0.029) H 11/29/21 20:15 Results - Labs CBC & Chem 7: 12/01/21 05:00 12/01/21 05:00 Labs: Laboratory Last Values WBC 8.9 K/mm3 (4.5-11.0) 12/01/21 05:00 RBC 2.97 M/mm3 (3.65-5.03) L 12/01/21 05:00 Hgb 8.0 gm/dl (10.1-14.3) L 12/01/21 05:00 Hct 25.0 % (30.3-42.9) L 12/01/21 05:00 MCV 84 fl (79-97) 12/01/21 05:00 MCH 27 pg (28-32) L 12/01/21 05:00 MCHC 32 % (30-34) 12/01/21 05:00 RDW 20.8 % (13.2-15.2) H 12/01/21 05:00 Plt Count 202 K/mm3 (140-440) 12/01/21 05:00 Add Manual Diff Complete 11/16/21 15:25 Total Counted 100 11/16/21 15:25 Seg Neutrophils % Senior Sas Developer 11/06/21 15:50 Seg Neuts % (Manual) 87.0 % (40.0-70.0) H 11/16/21 15:25 Band Neutrophils % 0 % 11/16/21 15:25 Lymphocytes % (Manual) 8.0 % (13.4-35.0) L 11/16/21 15:25 Reactive Lymphs % (Man) 0 % 11/16/21 15:25 Monocytes % (Manual) 5.0 % (0.0-7.3) 11/16/21 15:25 Eosinophils % (Manual) 0 % (0.0-4.3) 11/16/21 15:25 Basophils % (Manual) 0 % (0.0-1.8) 11/16/21 15:25 Metamyelocytes % 0 % 11/16/21 15:25 Myelocytes % 0 % 11/16/21 15:25 Promyelocytes % 0 % 11/16/21 15:25 Blast Cells % 0 % 11/16/21 15:25 Nucleated RBC % Not Reportable 11/16/21 15:25 Seg Neutrophils # Man 15.0 K/mm3 (1.8-7.7) H 11/16/21 15:25 Band Neutrophils # 0.0 K/mm3 11/16/21 15:25 Lymphocytes # (Manual) 1.4 K/mm3 (1.2-5.4) 11/16/21 15:25 Abs React Lymphs (Man) 0.0 K/mm3 11/16/21 15:25 Monocytes # (Manual) 0.9 K/mm3 (0.0-0.8) H 11/16/21 15:25 Eosinophils # (Manual) 0.0 K/mm3 (0.0-0.4) 11/16/21 15:25 Basophils # (Manual) 0.0 K/mm3 (0.0-0.1) 11/16/21 15:25 Metamyelocytes # 0.0 K/mm3 11/16/21 15:25 Myelocytes # 0.0 K/mm3 11/16/21 15:25 Promyelocytes # 0.0 K/mm3 11/16/21 15:25 Blast Cells # 0.0 K/mm3 11/16/21 15:25 WBC Morphology Not Reportable 11/16/21 15:25 Hypersegmented Neuts Not Reportable 11/16/21 15:25 Hyposegmented Neuts Not Reportable 11/16/21 15:25 Hypogranular Neuts Not Reportable 11/16/21 15:25 Smudge Cells Not Reportable 11/16/21 15:25 Toxic Granulation Not Reportable 11/16/21 15:25 Toxic Vacuolation Not Reportable 11/16/21 15:25 Dohle Bodies Not Reportable 11/16/21 15:25 Pelger-Huet Anomaly Not Reportable 11/16/21 15:25 Irina Rods Not Reportable 11/16/21 15:25 Platelet Estimate Consistent w auto 11/16/21 15:25 Clumped Platelets Rare 11/16/21 15:25 Plt Clumps, EDTA Not Reportable 11/16/21 15:25 Large Platelets Not Reportable 11/16/21 15:25 Giant Platelets Not Reportable 11/16/21 15:25 Platelet Satelliting Not Reportable 11/16/21 15:25 Plt Morphology Comment Not Reportable 11/16/21 15:25 RBC Morphology Not Reportable 11/16/21 15:25 Dimorphic RBCs Not Reportable 11/16/21 15:25 Polychromasia Not Reportable 11/16/21 15:25 Hypochromasia 2+ 11/16/21 15:25 Poikilocytosis Not Reportable 11/16/21 15:25 Anisocytosis 2+ 11/16/21 15:25 Microcytosis Not Reportable 11/16/21 15:25 Macrocytosis Not Reportable 11/16/21 15:25 Spherocytes Not Reportable 11/16/21 15:25 Pappenheimer Bodies Not Reportable 11/16/21 15:25 Sickle Cells Not Reportable 11/16/21 15:25 Target Cells 2+ 11/16/21 15:25 Tear Drop Cells Not Reportable 11/16/21 15:25 Ovalocytes Not Reportable 11/16/21 15:25 Helmet Cells Not Reportable 11/16/21 15:25 Odonnell-Tappen Bodies Not Reportable 11/16/21 15:25 [place] Rings Not Reportable 11/16/21 15:25 Malcom Cells Not Reportable 11/16/21 15:25 Bite Cells Not Reportable 11/16/21 15:25 Crenated Cell Not Reportable 11/16/21 15:25 Elliptocytes Not Reportable 11/16/21 15:25 Acanthocytes (Spur) Not Reportable 11/16/21 15:25 Rouleaux Not Reportable 11/16/21 15:25 Hemoglobin C Crystals Not Reportable 11/16/21 15:25 Schistocytes Not Reportable 11/16/21 15:25 Malaria parasites Not Reportable 11/16/21 15:25 Godfrey Bodies Not Reportable 11/16/21 15:25 Hem Pathologist Commnt No 11/16/21 15:25 PT 16.9 Sec. (12.2-14.9) H 11/26/21 05:00 INR 1.24 (0.87-1.13) H 11/26/21 05:00 APTT 29.2 Sec. (24.2-36.6) 11/26/21 05:00 D-Dimer 2655.00 ng/mlDDU (0-234) H 11/11/21 04:28 ABG pH 7.449 pH Units (7.350-7.450) 11/21/21 16:00 ABG pCO2 32.1 mm Hg 11/21/21 16:00 ABG pO2 114.2 mm Hg (80.0-90.0) H 11/21/21 16:00 ABG HCO3 21.8 mmol/L (20.0-26.0) 11/21/21 16:00 ABG O2 Saturation 98.3 % (95.0-99.0) 11/21/21 16:00 ABG O2 Content 12.5 (0.0-44) 11/21/21 16:00 ABG Base Excess -1.7 mmol/L (-2.0-3.0) 11/21/21 16:00 ABG Hemoglobin 9.1 gm/dl (12.0-16.0) L 11/21/21 16:00 ABG Carboxyhemoglobin 1.9 % (0.0-5.0) 11/21/21 16:00 ABG Methemoglobin 0.5 % (0.0-1.5) 11/21/21 16:00 Oxyhemoglobin 96.0 % (95.0-99.0) 11/21/21 16:00 FiO2 30 % 11/21/21 16:00 Sodium 136 mmol/L (137-145) L 12/01/21 05:00 Potassium 4.2 mmol/L (3.6-5.0) 12/01/21 05:00 Chloride 98.9 mmol/L (98-107) 12/01/21 05:00 Carbon Dioxide 27 mmol/L (22-30) 12/01/21 05:00 Anion Gap 14 mmol/L 12/01/21 05:00 BUN 24 mg/dL (7-17) H 12/01/21 05:00 Creatinine 0.6 mg/dL (0.6-1.2) 12/01/21 05:00 Estimated GFR > 60 ml/min 12/01/21 05:00 BUN/Creatinine Ratio 40 % 12/01/21 05:00 Glucose 117 mg/dL (65-100) H 12/01/21 05:00 POC Glucose 108 mg/dL (70-105) H 12/01/21 05:25 Lactic Acid 3.70 mmol/L (0.7-2.0) H* 11/03/21 22:32 Calcium 7.5 mg/dL (8.4-10.2) L 12/01/21 05:00 Phosphorus 3.30 mg/dL (2.5-4.5) 12/01/21 05:00 Magnesium 1.60 mg/dL (1.7-2.3) L 12/01/21 05:00 Ferritin 52.6 ng/mL (10.0-200.0) 11/05/21 06:11 Total Bilirubin 0.50 mg/dL (0.1-1.2) 11/17/21 05:56 Direct Bilirubin < 0.2 mg/dL (0-0.2) 11/11/21 04:28 Indirect Bilirubin 0.1 mg/dL 11/11/21 04:28 AST 36 units/L (5-40) 11/17/21 05:56 ALT 47 units/L (7-56) 11/17/21 05:56 Alkaline Phosphatase 107 units/L (35-129) 11/17/21 05:56 Ammonia 42.0 umol/L (25-60) 11/10/21 14:08 Lactate Dehydrogenase 187 units/L (91-180) H 11/05/21 06:11 Troponin T 0.045 ng/mL (0.00-0.029) H 11/29/21 20:15 C-Reactive Protein 22.20 mg/dL (0.00-1.30) H 11/05/21 06:11 NT-Pro-B Natriuret Pep 7895 pg/mL (0-900) H 11/03/21 22:32 Total Protein 5.1 g/dL (6.3-8.2) L 11/17/21 05:56 Albumin 2.2 g/dL (3.9-5) L 11/17/21 05:56 Albumin/Globulin Ratio 0.8 % 11/17/21 05:56 Triglycerides 59 mg/dL (2-149) 11/29/21 20:15 Cholesterol 74 mg/dL (50-199) 11/29/21 20:15 LDL Cholesterol Direct 25 mg/dL (50-130) L 11/29/21 20:15 HDL Cholesterol 41 mg/dL (40-59) 11/29/21 20:15 Cholesterol/HDL Ratio 1.80 % 11/29/21 20:15 Vitamin B12 1823 pg/mL (211-911) H 11/10/21 14:08 TSH 1.510 mlU/mL (0.270-4.200) 11/10/21 14:08 Urine Color Yellow (Yellow) 11/11/21 09:00 Urine Turbidity Slightly-cloudy (Clear) 11/11/21 09:00 Urine pH 5.0 (5.0-7.0) 11/11/21 09:00 Ur Specific [place] 1.009 (1.003-1.030) 11/11/21 09:00 Urine Protein <15 mg/dl mg/dL (Negative) 11/11/21 09:00 Urine Glucose (UA) Neg mg/dL (Negative) 11/11/21 09:00 Urine Ketones Neg mg/dL (Negative) 11/11/21 09:00 Urine Blood Mod (Negative) 11/11/21 09:00 Urine Nitrite Neg (Negative) 11/11/21 09:00 Urine Bilirubin Neg (Negative) 11/11/21 09:00 Urine Urobilinogen < 2.0 mg/dL (<2.0) 11/11/21 09:00 Ur Leukocyte Esterase Neg (Negative) 11/11/21 09:00 Urine WBC (Auto) < 1.0 /HPF (0.0-6.0) 11/11/21 09:00 Urine RBC (Auto) < 1.0 /HPF (0.0-6.0) 11/11/21 09:00 Coronavirus (PCR) Negative (Negative) 11/10/21 08:30 Blood Type O POSITIVE 11/18/21 10:45 Antibody Screen Negative 11/18/21 10:45 Crossmatch See Detail 11/18/21 10:45 Gamble/IV: Voiding Method Indwelling Catheter Active Medications - Current Medications Current Medications: Generic Name Dose Route Start Last Admin Trade Name Freq PRN Reason Stop Dose Admin Acetaminophen 650 mg 11/04/21 02:03 11/23/21 16:26 Acetaminophen 325 Mg Tab PO 650 mg Q6H PRN Administration Pain MILD(1-3)/Fever >100.5/RODRIGUEZ Hydrocodone Bitart/Acetaminophen 1 each 11/21/21 10:00 12/01/21 08:51 Hydrocodone/Acetaminophen 10-325mg Tab FEEDTUBE 1 each TID YOSSI Administration Lipase/Protease/Amylase 1 each 11/08/21 11:09 Lipase 10,500/Protease 25,000/Amylase 43,750 (Units) Dr Lema FEEDTUBE PRN PRN For Clogged Feeding Tube Buspirone HCl 7.5 mg 11/17/21 22:00 11/30/21 21:44 Buspirone 5 Mg Tab PO 7.5 mg BID YOSSI Administration Dextrose 0 ml 11/10/21 10:52 11/21/21 16:27 Dextrose 10% *Hypoglycemia IV 50 ml PRN PRN Administration Hypoglycemia Fentanyl 1 applic 11/17/21 13:00 11/29/21 09:55 Fentanyl 25 Mcg/Hr Patch 72hr TD 1 applic Q3D YOSSI Administration Gabapentin 100 mg 12/01/21 10:00 Gabapentin 100 Mg Cap PO QDAY YOSSI Hydrophilic Ointment 1 applic 11/06/21 04:02 Lip Therapy Vaseline TP Q2HR PRN Dry Lips NORepinephrine/NS 8 MG-250 ML 8 mg in 250 mls @ 3.75 mls/hr 11/29/21 00:00 11/30/21 08:17 Norepinephrine/Ns 8 Mg-250 Ml (Double Conc) IV 0 mcg/min TITRATE YOSSI 0 mls/hr Titration Protocol 2 MCG/MIN Magnesium Sulfate 4 gm in 100 mls @ 25 mls/hr 12/01/21 09:00 Magnesium Sulfate 4gm/100ml IV 12/01/21 12:59 ONCE ONE Insulin Human Lispro 0 unit 11/06/21 12:00 12/01/21 05:37 Insulin Lispro 100 Unit/Ml SUB-Q Not Given Q6HR [facility] Protocol Lansoprazole 30 mg 11/24/21 22:00 11/30/21 21:45 Lansoprazole 30 Mg Solutab FEEDTUBE 30 mg BID YOSSI Administration Levothyroxine Sodium 125 mcg 11/05/21 07:00 12/01/21 05:37 Levothyroxine 125 Mcg Tab PO 125 mcg DAILY@0600 YOSSI Administration Magnesium Hydroxide 30 ml 11/04/21 02:03 Magnesium Hydroxide (Mom) Oral Liqd Udc PO Q4H PRN Constipation Metoprolol Tartrate 12.5 mg 11/21/21 10:00 11/30/21 21:45 Metoprolol Tartrate 25 Mg Tab PO 12.5 mg BID [facility] Administration Multi-Ingred Cream/Lotion/Oil/Oint 1 applic 11/06/21 04:02 Mineral Oil/Petrolatum, White Ophth Oint 3.5 Gm OU Q4HR PRN Dry Eye(s) Nitroglycerin 0.4 mg 11/30/21 11:36 Nitroglycerin 0.4 Mg Tab Subl SL .Q5MIN PRN Chest Pain Ondansetron HCl 4 mg 11/04/21 02:03 11/05/21 15:48 Ondansetron 4 Mg/2 Ml Inj IV 4 mg Q8H PRN Administration Nausea And Vomiting Pravastatin Sodium 20 mg 11/18/21 22:00 11/30/21 21:47 Pravastatin 20 Mg Tab PO 20 mg QHS YOSSI Administration Quetiapine Fumarate 50 mg 11/20/21 22:00 11/30/21 21:53 Quetiapine 25 Mg Tab PO 50 mg BID YOSSI Administration Senna 17.6 mg 11/08/21 22:00 11/30/21 21:45 Sennosides Oral Liqd 8.8 Mg/5 Ml Oral Liqd PO 17.6 mg Q12HR YOSSI Administration Simple Syrup 15 ml 11/08/21 11:09 Simple Syrup 15 Ml FEEDTUBE PRN PRN Hypoglycemia Simple Syrup 30 ml 11/08/21 11:09 Simple Syrup 15 Ml FEEDTUBE PRN PRN Hypoglycemia Sodium Bicarbonate 325 mg 11/08/21 11:09 Sodium Bicarbonate 325 Mg Tab FEEDTUBE PRN PRN For Clogged Feeding Tube Sodium Chloride 10 ml 11/04/21 10:00 11/30/21 21:48 Sodium Chloride 0.9% 10 Ml Flush Syringe IV 10 ml BID YOSSI Administration Sodium Chloride 10 ml 11/04/21 02:03 Sodium Chloride 0.9% 10 Ml Flush Syringe IV PRN PRN LINE FLUSH Sodium Chloride 10 ml 11/10/21 09:57 11/17/21 20:47 Sodium Chloride 0.9% 50 Ml Ivpb IV 10 ml PRN PRN Administration FLUSH Sucralfate 1 gm 11/18/21 16:30 12/01/21 08:51 Sucralfate 1 Gm/10 Ml Oral Liqd PO 1 gm ACHS YOSSI Administration Nutrition/Malnutrition Assess - Dietary Evaluation Nutrition/Malnutrition Findings: Nutrition Notes Start: 11/04/21 17:16 Freq: Status: Active Protocol: Document 11/24/21 14:48 YOVANI (Rec: 11/24/21 14:56 YOVANI [email or web address]) Nutrition Notes Initial or Follow up Reassessment Current Diagnosis Diabetes,Hypertension,Heart Failure,Respiratory Failure Other Pertinent Diagnosis Bilat pneu, (R) pneumothorax, Septic shock Current Diet TF - Glucerna 1.2 at 42ml/hr Labs/Tests Reviewed Pertinent Medications Sucralfate Height 5 ft Weight 62.4 kg [place] Body Weight (kg) 45.45 BMI 26.9 Weight Status Appropriate Subjective/Other Information Observed TF infusing at goal rate. Pt remains on vent support. Trach/PEG placement pending. Percent of energy/protein needs met: 100% energy 81% pro Burn Absent Trauma Absent #1 Nutrition Diagnosis Inadequate oral intake Diagnosis Progress(for reassessment Continues documentation) Is patient on ventilator? Yes Is Patient Ambulatory and/or Out of Bed No REE-([facility]-confined to bed) [phone] Calculation Used for Recommendations [facility] Additional Notes Pro needs 1.2-2 g/k-125g/ day Fluid needs 1ml/kcal Nutrition Intervention Nutrition Support: Continue Glucerna 1.2 at 42ml/ hr with 75ml water flush q4h. Kcal 1,210 Protein (gm) 60 Carbohydrates (gm) 115 Fat (gm) 60 Fluid (mL) 811 Fiber (gm) 16 Goal #1 TF tolerance Goal #2 TF to meet at least 75% energy and pro needs Follow-Up By: 12/01/21 Additional Comments F/U: stable TF, trach/PEG placement, vent status, wt
--- NOTE | 2021-12-01 11:32 | Progress Note ---
Assessment and Plan Severe Sepsis POA vs septic shock- 11/03/2021 blood culture: 2 sets positive for GPC Acute respiratory failure with hypoxia, s/p trach on MVS Acute microcytic anemia Bilateral pneumonia Left pleural effusion Cardiomyopathy EF 30-35% Moderate pulmonary HTN RVSP 49 Daily SBTs as tolerated. Conservative fluid management as tolerated by hemodynamics and renal function Continue to optimize enteric nutritional support Discharge planning - continue to titrate supplemental oxygen to keep SPO2 88-90% - VAP bundle addressed, aspiration precautions, HOB >40 - continue bronchodilators with pulmonary hygiene per RT - avoid nephrotoxins, renally dose all medications - Accuchecks with glycemic control per SSI (While critically ill target blood glucose of 140-180 mg/dL; avoid hypoglycemia) - sedation prn for target RASS 0 to -1 - continue to avoid benzodiazepines, reduce the possibility of delirium -trend temperature curve, trend WCC -Monitor off antibiotics for now - prn analgesia per CPOT score - Maintenance of sleep-wake cycle, avoid delirium - Stress and VTE prophylaxis - mobility, off loading and frequent turning to prevent pressure ulcer - Monitor hemodynamics closely - continue other care per attending / other consultants COVID SPECIFIC INTERVENTIONS - Negative CONDITION: CRITICAL PROGNOSIS: GUARDED CODE STATUS: FULL CODE The high probability of a clinically significant, sudden or life-threatening deterioration of the [respiratory, cardiovascular and hematologic] system(s) required my full and direct attention, intervention and personal management. The aggregate critical care time was [33] minutes without overlap. Time includes spent on; [x] Data Review and interpretation [x] Patient assessment and monitoring of vital signs [x] Documentation [x] Medication orders and management Subjective Date of service: 12/01/21 Principal diagnosis: Septic shock; AHRF; Anemia; Pneumonia; L. pleural effusion; HFrEF; Pulm HTN Interval history: Follow up fro acute hypoxemic resp failure s/p tracheostomy to MVS ; Septic and cardiogenic shock; severe anemia; Patient seen and examined. Vitals, labs, medications, chart and imaging reviewed. Discussed with respiratory and nursing care staff. Currently on PSV, no fevers overnight, no diarrhea, no vomiting. No acute overnight events reported. Not on any vasopressor support Objective Vital Signs - 12hr 11/30/21 12/01/21 12/01/21 23:40 00:00 01:00 Temperature 98.9 F Pulse Rate 72 73 Pulse Rate [ 84 From Monitor] Respiratory 14 15 Rate Blood Pressure 108/56 110/52 O2 Sat by Pulse 97 96 Oximetry O2 Sat by Pulse 99 Oximetry [ Assessment] 12/01/21 12/01/21 12/01/21 02:00 03:00 03:24 Temperature 98.6 F Pulse Rate 74 82 Pulse Rate [ From Monitor] Respiratory 14 16 Rate Blood Pressure 112/51 125/62 O2 Sat by Pulse 97 99 Oximetry O2 Sat by Pulse Oximetry [ Assessment] 12/01/21 12/01/21 12/01/21 04:00 05:00 06:00 Temperature Pulse Rate 89 90 82 Pulse Rate [ 84 From Monitor] Respiratory 15 16 13 Rate Blood Pressure 124/52 124/52 103/42 O2 Sat by Pulse 98 99 99 Oximetry O2 Sat by Pulse Oximetry [ Assessment] 12/01/21 12/01/21 12/01/21 07:00 08:00 08:46 Temperature 98 F Pulse Rate 81 80 83 Pulse Rate [ 79 From Monitor] Respiratory 15 15 Rate Blood Pressure 106/47 101/41 112/48 O2 Sat by Pulse 100 100 100 Oximetry O2 Sat by Pulse 100 Oximetry [ Assessment] 12/01/21 10:41 Temperature Pulse Rate 85 Pulse Rate [ From Monitor] Respiratory Rate Blood Pressure 111/47 O2 Sat by Pulse Oximetry O2 Sat by Pulse Oximetry [ Assessment] Constitutional: no acute distress, other (trach to MVS, frail elderly woman with mildly increased respiratory effort at rest) Eyes: non-icteric ENT: oropharynx moist, oropharyngeal exudate pre (clear frothy), other (+ Midline tracheostomy) Neck: supple, no lymphadenopathy, no JVD Effort: mildly labored Ascultation: Bilateral: diminished breath sounds, rhonchi, other (Right chest tube) Percussion: Bilateral: not dull Cardiovascular: regular rate and rhythm, other (S1,S2) Gastrointestinal: normoactive bowel sounds, soft, non-tender, non-distended (protuberant) Integumentary: normal Extremities: no cyanosis, pink and warm, pulses normal, edema (upper etremities) Neurologic: non-focal exam (grossly), pupils equal and round CBC and BMP: 12/01/21 05:00 12/01/21 05:00 ABG, PT/INR, D-dimer: ABG ABG pH 7.449 pH Units (7.350-7.450) 11/21/21 16:00 ABG pCO2 32.1 mm Hg 11/21/21 16:00 ABG pO2 114.2 mm Hg (80.0-90.0) H 11/21/21 16:00 ABG O2 Saturation 98.3 % (95.0-99.0) 11/21/21 16:00 PT/INR, D-dimer PT 16.9 Sec. (12.2-14.9) H 11/26/21 05:00 INR 1.24 (0.87-1.13) H 11/26/21 05:00 D-Dimer 2655.00 ng/mlDDU (0-234) H 11/11/21 04:28 Abnormal lab findings: Abnormal Labs 11/03/21 11/03/21 11/03/21 22:32 22:32 22:32 WBC 29.3 H RBC 2.93 L Hgb 6.1 L Hct 21.9 L MCV 75 L MCH 21 L MCHC 28 L RDW 19.7 H Plt Count Seg Neuts % (Manual) 97.0 H Lymphocytes % (Manual) 3.0 L Seg Neutrophils # Man 28.4 H Lymphocytes # (Manual) 0.9 L Monocytes # (Manual) PT 18.6 H INR 1.40 H D-Dimer ABG pH ABG pO2 ABG HCO3 ABG O2 Saturation ABG Base Excess ABG Hemoglobin Oxyhemoglobin Sodium Potassium Chloride Carbon Dioxide 20 L BUN 33 H Glucose 119 H POC Glucose Lactic Acid Calcium 8.3 L Phosphorus Magnesium AST ALT Alkaline Phosphatase Lactate Dehydrogenase Troponin T 0.035 H C-Reactive Protein NT-Pro-B Natriuret Pep Total Protein Albumin LDL Cholesterol Direct 34 L Vitamin B12 Crossmatch 11/03/21 11/03/21 11/03/21 22:32 22:32 23:57 WBC RBC Hgb Hct MCV MCH MCHC RDW Plt Count Seg Neuts % (Manual) Lymphocytes % (Manual) Seg Neutrophils # Man Lymphocytes # (Manual) Monocytes # (Manual) PT INR D-Dimer ABG pH ABG pO2 ABG HCO3 ABG O2 Saturation ABG Base Excess ABG Hemoglobin Oxyhemoglobin Sodium Potassium Chloride Carbon Dioxide BUN Glucose POC Glucose Lactic Acid 3.70 H* Calcium Phosphorus Magnesium AST ALT Alkaline Phosphatase 139 H Lactate Dehydrogenase Troponin T C-Reactive Protein NT-Pro-B Natriuret Pep 7895 H Total Protein Albumin 3.5 L LDL Cholesterol Direct Vitamin B12 Crossmatch See Detail 11/04/21 11/04/21 11/05/21 00:59 13:58 00:51 WBC 27.9 H RBC 3.28 L Hgb 7.3 L Hct 25.5 L MCV 78 L MCH 22 L MCHC 29 L RDW 19.1 H Plt Count Seg Neuts % (Manual) 96.0 H Lymphocytes % (Manual) 2.0 L Seg Neutrophils # Man 26.8 H Lymphocytes # (Manual) 0.6 L Monocytes # (Manual) PT INR D-Dimer ABG pH ABG pO2 ABG HCO3 ABG O2 Saturation ABG Base Excess ABG Hemoglobin Oxyhemoglobin Sodium Potassium Chloride Carbon Dioxide BUN Glucose POC Glucose Lactic Acid Calcium Phosphorus Magnesium AST ALT Alkaline Phosphatase Lactate Dehydrogenase Troponin T 0.051 H D 0.032 H D C-Reactive Protein NT-Pro-B Natriuret Pep Total Protein Albumin LDL Cholesterol Direct Vitamin B12 Crossmatch 11/05/21 11/05/21 11/05/21 06:11 06:11 06:11 WBC 31.8 H RBC 3.57 L Hgb 8.0 L Hct 27.7 L MCV 78 L MCH 22 L MCHC 29 L RDW 19.2 H Plt Count Seg Neuts % (Manual) 91.0 H Lymphocytes % (Manual) 4.5 L Seg Neutrophils # Man 28.9 H Lymphocytes # (Manual) Monocytes # (Manual) 1.1 H PT INR D-Dimer 1494.53 H ABG pH ABG pO2 ABG HCO3 ABG O2 Saturation ABG Base Excess ABG Hemoglobin Oxyhemoglobin Sodium Potassium Chloride Carbon Dioxide 19 L BUN 42 H Glucose 115 H POC Glucose Lactic Acid Calcium Phosphorus Magnesium AST 43 H ALT Alkaline Phosphatase Lactate Dehydrogenase 187 H Troponin T C-Reactive Protein 22.20 H NT-Pro-B Natriuret Pep Total Protein 6.0 L Albumin 3.2 L LDL Cholesterol Direct Vitamin B12 Crossmatch 11/05/21 11/05/21 11/06/21 06:11 12:15 00:30 WBC RBC Hgb Hct MCV MCH MCHC RDW Plt Count Seg Neuts % (Manual) Lymphocytes % (Manual) Seg Neutrophils # Man Lymphocytes # (Manual) Monocytes # (Manual) PT INR D-Dimer ABG pH ABG pO2 ABG HCO3 ABG O2 Saturation ABG Base Excess ABG Hemoglobin Oxyhemoglobin Sodium Potassium Chloride Carbon Dioxide BUN Glucose POC Glucose 113 H 69 L Lactic Acid Calcium Phosphorus Magnesium AST ALT Alkaline Phosphatase Lactate Dehydrogenase Troponin T 0.033 H C-Reactive Protein NT-Pro-B Natriuret Pep Total Protein Albumin LDL Cholesterol Direct Vitamin B12 Crossmatch 11/06/21 11/06/21 11/06/21 05:50 15:50 15:50 WBC 25.5 H RBC 3.62 L Hgb 8.0 L Hct 27.5 L MCV 76 L MCH 22 L MCHC 29 L RDW 19.6 H Plt Count Seg Neuts % (Manual) 92.0 H Lymphocytes % (Manual) 5.0 L Seg Neutrophils # Man 23.5 H Lymphocytes # (Manual) Monocytes # (Manual) PT INR D-Dimer ABG pH 7.305 L ABG pO2 ABG HCO3 15.8 L ABG O2 Saturation ABG Base Excess -9.6 L ABG Hemoglobin 8.6 L Oxyhemoglobin 94.6 L Sodium Potassium Chloride 113.9 H Carbon Dioxide 17 L BUN 56 H Glucose 114 H POC Glucose Lactic Acid Calcium 7.9 L Phosphorus Magnesium AST 1410 H ALT 934 H Alkaline Phosphatase 142 H Lactate Dehydrogenase Troponin T C-Reactive Protein NT-Pro-B Natriuret Pep Total Protein 5.0 L Albumin 2.6 L LDL Cholesterol Direct Vitamin B12 Crossmatch 11/07/21 11/07/21 11/07/21 03:30 04:50 08:07 WBC RBC Hgb Hct MCV MCH MCHC RDW Plt Count Seg Neuts % (Manual) Lymphocytes % (Manual) Seg Neutrophils # Man Lymphocytes # (Manual) Monocytes # (Manual) PT INR D-Dimer ABG pH ABG pO2 296.9 H ABG HCO3 18.1 L ABG O2 Saturation 99.5 H ABG Base Excess -5.9 L ABG Hemoglobin 7.6 L Oxyhemoglobin Sodium Potassium Chloride Carbon Dioxide BUN Glucose POC Glucose 106 H 108 H Lactic Acid Calcium Phosphorus Magnesium AST ALT Alkaline Phosphatase Lactate Dehydrogenase Troponin T C-Reactive Protein NT-Pro-B Natriuret Pep Total Protein Albumin LDL Cholesterol Direct Vitamin B12 Crossmatch 11/08/21 11/08/21 11/08/21 03:10 18:05 23:43 WBC RBC Hgb Hct MCV MCH MCHC RDW Plt Count Seg Neuts % (Manual) Lymphocytes % (Manual) Seg Neutrophils # Man Lymphocytes # (Manual) Monocytes # (Manual) PT INR D-Dimer ABG pH ABG pO2 127.4 H ABG HCO3 ABG O2 Saturation ABG Base Excess -3.4 L ABG Hemoglobin 7.4 L Oxyhemoglobin Sodium Potassium Chloride Carbon Dioxide BUN Glucose POC Glucose 113 H 141 H Lactic Acid Calcium Phosphorus Magnesium AST ALT Alkaline Phosphatase Lactate Dehydrogenase Troponin T C-Reactive Protein NT-Pro-B Natriuret Pep Total Protein Albumin LDL Cholesterol Direct Vitamin B12 Crossmatch 11/08/21 11/08/21 11/09/21 Unknown Unknown 02:00 WBC 14.5 H RBC 3.35 L Hgb 7.5 L 8.1 L Hct 25.4 L 27.6 L MCV 76 L 76 L MCH 23 L 22 L MCHC RDW 19.9 H 19.9 H Plt Count Seg Neuts % (Manual) Lymphocytes % (Manual) Seg Neutrophils # Man Lymphocytes # (Manual) Monocytes # (Manual) PT INR D-Dimer ABG pH ABG pO2 ABG HCO3 ABG O2 Saturation ABG Base Excess ABG Hemoglobin Oxyhemoglobin Sodium 154 H D Potassium 3.3 L Chloride 120.7 H Carbon Dioxide 20 L BUN 38 H Glucose POC Glucose Lactic Acid Calcium 8.3 L Phosphorus Magnesium AST ALT Alkaline Phosphatase Lactate Dehydrogenase Troponin T C-Reactive Protein NT-Pro-B Natriuret Pep Total Protein Albumin LDL Cholesterol Direct Vitamin B12 Crossmatch 11/09/21 11/09/21 11/09/21 02:00 02:31 05:12 WBC RBC Hgb Hct MCV MCH MCHC RDW Plt Count Seg Neuts % (Manual) Lymphocytes % (Manual) Seg Neutrophils # Man Lymphocytes # (Manual) Monocytes # (Manual) PT INR D-Dimer ABG pH 7.479 H ABG pO2 121.3 H ABG HCO3 ABG O2 Saturation ABG Base Excess ABG Hemoglobin 7.3 L Oxyhemoglobin Sodium Potassium Chloride 112.5 H Carbon Dioxide BUN 33 H Glucose 161 H POC Glucose 135 H Lactic Acid Calcium Phosphorus Magnesium AST 251 H ALT 481 H Alkaline Phosphatase Lactate Dehydrogenase Troponin T C-Reactive Protein NT-Pro-B Natriuret Pep Total Protein 5.0 L Albumin 2.8 L LDL Cholesterol Direct Vitamin B12 Crossmatch 11/09/21 11/09/21 11/09/21 11:33 16:32 23:28 WBC RBC Hgb Hct MCV MCH MCHC RDW Plt Count Seg Neuts % (Manual) Lymphocytes % (Manual) Seg Neutrophils # Man Lymphocytes # (Manual) Monocytes # (Manual) PT INR D-Dimer ABG pH ABG pO2 ABG HCO3 ABG O2 Saturation ABG Base Excess ABG Hemoglobin Oxyhemoglobin Sodium Potassium Chloride Carbon Dioxide BUN Glucose POC Glucose 132 H 133 H 143 H Lactic Acid Calcium Phosphorus Magnesium AST ALT Alkaline Phosphatase Lactate Dehydrogenase Troponin T C-Reactive Protein NT-Pro-B Natriuret Pep Total Protein Albumin LDL Cholesterol Direct Vitamin B12 Crossmatch 11/10/21 11/10/21 11/10/21 04:00 04:00 05:35 WBC 16.0 H RBC 3.61 L Hgb 8.0 L Hct 27.1 L MCV 75 L MCH 22 L MCHC RDW 20.4 H Plt Count Seg Neuts % (Manual) Lymphocytes % (Manual) Seg Neutrophils # Man Lymphocytes # (Manual) Monocytes # (Manual) PT INR D-Dimer ABG pH ABG pO2 ABG HCO3 ABG O2 Saturation ABG Base Excess ABG Hemoglobin Oxyhemoglobin Sodium 149 H Potassium Chloride 114.1 H Carbon Dioxide BUN 31 H Glucose 148 H POC Glucose 132 H Lactic Acid Calcium 8.2 L Phosphorus Magnesium AST ALT Alkaline Phosphatase Lactate Dehydrogenase Troponin T C-Reactive Protein NT-Pro-B Natriuret Pep Total Protein Albumin LDL Cholesterol Direct Vitamin B12 Crossmatch 11/10/21 11/10/21 11/10/21 11:31 14:08 15:35 WBC RBC Hgb Hct MCV MCH MCHC RDW Plt Count Seg Neuts % (Manual) Lymphocytes % (Manual) Seg Neutrophils # Man Lymphocytes # (Manual) Monocytes # (Manual) PT INR D-Dimer ABG pH ABG pO2 126.6 H ABG HCO3 ABG O2 Saturation ABG Base Excess ABG Hemoglobin 7.4 L Oxyhemoglobin Sodium Potassium Chloride Carbon Dioxide BUN Glucose POC Glucose 147 H Lactic Acid Calcium Phosphorus Magnesium AST ALT Alkaline Phosphatase Lactate Dehydrogenase Troponin T C-Reactive Protein NT-Pro-B Natriuret Pep Total Protein Albumin LDL Cholesterol Direct Vitamin B12 1823 H Crossmatch 11/10/21 11/11/21 11/11/21 17:53 00:55 04:28 WBC RBC Hgb Hct MCV MCH MCHC RDW Plt Count Seg Neuts % (Manual) Lymphocytes % (Manual) Seg Neutrophils # Man Lymphocytes # (Manual) Monocytes # (Manual) PT INR D-Dimer ABG pH ABG pO2 ABG HCO3 ABG O2 Saturation ABG Base Excess ABG Hemoglobin Oxyhemoglobin Sodium 149 H Potassium Chloride 112.2 H Carbon Dioxide BUN 34 H Glucose 148 H POC Glucose 140 H 145 H Lactic Acid Calcium 7.9 L Phosphorus Magnesium AST 53 H ALT 203 H Alkaline Phosphatase Lactate Dehydrogenase Troponin T C-Reactive Protein NT-Pro-B Natriuret Pep Total Protein 4.9 L Albumin 2.6 L LDL Cholesterol Direct Vitamin B12 Crossmatch 11/11/21 11/11/21 11/11/21 04:28 04:28 05:28 WBC 20.9 H RBC 3.47 L Hgb 7.5 L Hct 26.0 L MCV 75 L MCH 22 L MCHC 29 L RDW 21.6 H Plt Count 132 L Seg Neuts % (Manual) Lymphocytes % (Manual) Seg Neutrophils # Man Lymphocytes # (Manual) Monocytes # (Manual) PT INR D-Dimer 2655.00 H ABG pH ABG pO2 ABG HCO3 ABG O2 Saturation ABG Base Excess ABG Hemoglobin Oxyhemoglobin Sodium Potassium Chloride Carbon Dioxide BUN Glucose POC Glucose 154 H Lactic Acid Calcium Phosphorus Magnesium AST ALT Alkaline Phosphatase Lactate Dehydrogenase Troponin T C-Reactive Protein NT-Pro-B Natriuret Pep Total Protein Albumin LDL Cholesterol Direct Vitamin B12 Crossmatch 11/11/21 11/11/21 11/12/21 12:38 18:13 00:14 WBC RBC Hgb Hct MCV MCH MCHC RDW Plt Count Seg Neuts % (Manual) Lymphocytes % (Manual) Seg Neutrophils # Man Lymphocytes # (Manual) Monocytes # (Manual) PT INR D-Dimer ABG pH ABG pO2 ABG HCO3 ABG O2 Saturation ABG Base Excess ABG Hemoglobin Oxyhemoglobin Sodium Potassium Chloride Carbon Dioxide BUN Glucose POC Glucose 137 H 108 H 137 H Lactic Acid Calcium Phosphorus Magnesium AST ALT Alkaline Phosphatase Lactate Dehydrogenase Troponin T C-Reactive Protein NT-Pro-B Natriuret Pep Total Protein Albumin LDL Cholesterol Direct Vitamin B12 Crossmatch 11/12/21 11/12/21 11/12/21 05:40 06:24 11:12 WBC RBC Hgb Hct MCV MCH MCHC RDW Plt Count Seg Neuts % (Manual) Lymphocytes % (Manual) Seg Neutrophils # Man Lymphocytes # (Manual) Monocytes # (Manual) PT INR D-Dimer ABG pH 7.586 H ABG pO2 150.6 H ABG HCO3 27.2 H ABG O2 Saturation 99.1 H ABG Base Excess 5.2 H ABG Hemoglobin 7.5 L Oxyhemoglobin Sodium Potassium Chloride Carbon Dioxide BUN Glucose POC Glucose 132 H 140 H Lactic Acid Calcium Phosphorus Magnesium AST ALT Alkaline Phosphatase Lactate Dehydrogenase Troponin T C-Reactive Protein NT-Pro-B Natriuret Pep Total Protein Albumin LDL Cholesterol Direct Vitamin B12 Crossmatch 11/12/21 11/12/21 11/12/21 14:50 14:50 17:13 WBC 19.8 H RBC 3.27 L Hgb 7.1 L Hct 24.5 L MCV 75 L MCH 22 L MCHC 29 L RDW 22.3 H Plt Count Seg Neuts % (Manual) Lymphocytes % (Manual) Seg Neutrophils # Man Lymphocytes # (Manual) Monocytes # (Manual) PT INR D-Dimer ABG pH ABG pO2 ABG HCO3 ABG O2 Saturation ABG Base Excess ABG Hemoglobin Oxyhemoglobin Sodium 150 H Potassium 3.3 L Chloride 112.0 H Carbon Dioxide BUN 40 H Glucose 151 H POC Glucose 121 H Lactic Acid Calcium 7.4 L Phosphorus 1.70 L Magnesium 1.40 L AST ALT Alkaline Phosphatase Lactate Dehydrogenase Troponin T C-Reactive Protein NT-Pro-B Natriuret Pep Total Protein Albumin LDL Cholesterol Direct Vitamin B12 Crossmatch 11/12/21 11/13/21 11/13/21 23:19 05:34 06:30 WBC RBC Hgb Hct MCV MCH MCHC RDW Plt Count Seg Neuts % (Manual) Lymphocytes % (Manual) Seg Neutrophils # Man Lymphocytes # (Manual) Monocytes # (Manual) PT INR D-Dimer ABG pH ABG pO2 ABG HCO3 ABG O2 Saturation ABG Base Excess ABG Hemoglobin Oxyhemoglobin Sodium 149 H Potassium Chloride 60.0 L Carbon Dioxide BUN 40 H Glucose 146 H POC Glucose 113 H 132 H Lactic Acid Calcium 7.3 L Phosphorus Magnesium 2.40 H AST ALT 72 H Alkaline Phosphatase Lactate Dehydrogenase Troponin T C-Reactive Protein NT-Pro-B Natriuret Pep Total Protein 5.2 L Albumin 2.2 L LDL Cholesterol Direct Vitamin B12 Crossmatch 11/13/21 11/13/21 11/13/21 06:30 08:30 11:19 WBC 21.2 H RBC 3.12 L Hgb 6.8 L Hct 23.2 L MCV 74 L MCH 22 L MCHC 29 L RDW 22.2 H Plt Count 135 L Seg Neuts % (Manual) Lymphocytes % (Manual) Seg Neutrophils # Man Lymphocytes # (Manual) Monocytes # (Manual) PT INR D-Dimer ABG pH ABG pO2 ABG HCO3 ABG O2 Saturation ABG Base Excess ABG Hemoglobin Oxyhemoglobin Sodium Potassium Chloride Carbon Dioxide BUN Glucose POC Glucose 136 H Lactic Acid Calcium Phosphorus Magnesium AST ALT Alkaline Phosphatase Lactate Dehydrogenase Troponin T C-Reactive Protein NT-Pro-B Natriuret Pep Total Protein Albumin LDL Cholesterol Direct Vitamin B12 Crossmatch See Detail 11/13/21 11/14/21 11/14/21 18:21 00:01 04:46 WBC 20.0 H RBC 3.41 L Hgb 7.9 L Hct 26.8 L MCV MCH 23 L MCHC 29 L RDW 24.0 H Plt Count Seg Neuts % (Manual) Lymphocytes % (Manual) Seg Neutrophils # Man Lymphocytes # (Manual) Monocytes # (Manual) PT INR D-Dimer ABG pH ABG pO2 ABG HCO3 ABG O2 Saturation ABG Base Excess ABG Hemoglobin Oxyhemoglobin Sodium Potassium Chloride Carbon Dioxide BUN Glucose POC Glucose 149 H 141 H Lactic Acid Calcium Phosphorus Magnesium AST ALT Alkaline Phosphatase Lactate Dehydrogenase Troponin T C-Reactive Protein NT-Pro-B Natriuret Pep Total Protein Albumin LDL Cholesterol Direct Vitamin B12 Crossmatch 11/14/21 11/14/21 11/14/21 04:46 05:10 11:10 WBC RBC Hgb Hct MCV MCH MCHC RDW Plt Count Seg Neuts % (Manual) Lymphocytes % (Manual) Seg Neutrophils # Man Lymphocytes # (Manual) Monocytes # (Manual) PT INR D-Dimer ABG pH ABG pO2 ABG HCO3 ABG O2 Saturation ABG Base Excess ABG Hemoglobin Oxyhemoglobin Sodium 148 H Potassium Chloride 113.1 H Carbon Dioxide BUN 43 H Glucose 140 H POC Glucose 132 H 133 H Lactic Acid Calcium 7.5 L Phosphorus Magnesium AST ALT Alkaline Phosphatase Lactate Dehydrogenase Troponin T C-Reactive Protein NT-Pro-B Natriuret Pep Total Protein Albumin LDL Cholesterol Direct Vitamin B12 Crossmatch 11/14/21 11/14/21 11/14/21 16:14 17:48 23:23 WBC RBC Hgb Hct MCV MCH MCHC RDW Plt Count Seg Neuts % (Manual) Lymphocytes % (Manual) Seg Neutrophils # Man Lymphocytes # (Manual) Monocytes # (Manual) PT INR D-Dimer ABG pH ABG pO2 ABG HCO3 28.0 H ABG O2 Saturation ABG Base Excess 3.1 H ABG Hemoglobin 5.8 L Oxyhemoglobin 94.8 L Sodium Potassium Chloride Carbon Dioxide BUN Glucose POC Glucose 130 H 136 H Lactic Acid Calcium Phosphorus Magnesium AST ALT Alkaline Phosphatase Lactate Dehydrogenase Troponin T C-Reactive Protein NT-Pro-B Natriuret Pep Total Protein Albumin LDL Cholesterol Direct Vitamin B12 Crossmatch 11/15/21 11/15/21 11/15/21 05:20 05:50 05:50 WBC 19.9 H RBC 3.50 L Hgb 8.2 L Hct 27.9 L MCV MCH 23 L MCHC 29 L RDW 24.9 H Plt Count Seg Neuts % (Manual) Lymphocytes % (Manual) Seg Neutrophils # Man Lymphocytes # (Manual) Monocytes # (Manual) PT INR D-Dimer ABG pH ABG pO2 ABG HCO3 ABG O2 Saturation ABG Base Excess ABG Hemoglobin Oxyhemoglobin Sodium 149 H Potassium Chloride 112.0 H Carbon Dioxide BUN 48 H Glucose 152 H POC Glucose 137 H Lactic Acid Calcium 7.9 L Phosphorus Magnesium AST ALT Alkaline Phosphatase Lactate Dehydrogenase Troponin T C-Reactive Protein NT-Pro-B Natriuret Pep Total Protein Albumin LDL Cholesterol Direct Vitamin B12 Crossmatch 11/15/21 11/15/21 11/15/21 12:12 17:07 23:24 WBC RBC Hgb Hct MCV MCH MCHC RDW Plt Count Seg Neuts % (Manual) Lymphocytes % (Manual) Seg Neutrophils # Man Lymphocytes # (Manual) Monocytes # (Manual) PT INR D-Dimer ABG pH ABG pO2 ABG HCO3 ABG O2 Saturation ABG Base Excess ABG Hemoglobin Oxyhemoglobin Sodium Potassium Chloride Carbon Dioxide BUN Glucose POC Glucose 114 H 135 H 123 H Lactic Acid Calcium Phosphorus Magnesium AST ALT Alkaline Phosphatase Lactate Dehydrogenase Troponin T C-Reactive Protein NT-Pro-B Natriuret Pep Total Protein Albumin LDL Cholesterol Direct Vitamin B12 Crossmatch 11/16/21 11/16/21 11/16/21 05:21 10:00 10:00 WBC 21.7 H RBC 2.57 L Hgb 6.0 L Hct 20.2 L D MCV MCH 24 L MCHC RDW 26.3 H Plt Count Seg Neuts % (Manual) Lymphocytes % (Manual) Seg Neutrophils # Man Lymphocytes # (Manual) Monocytes # (Manual) PT INR D-Dimer ABG pH ABG pO2 ABG HCO3 ABG O2 Saturation ABG Base Excess ABG Hemoglobin Oxyhemoglobin Sodium 153 H Potassium Chloride 114.9 H Carbon Dioxide BUN 74 H Glucose 155 H POC Glucose 127 H Lactic Acid Calcium 8.1 L Phosphorus Magnesium AST ALT Alkaline Phosphatase Lactate Dehydrogenase Troponin T C-Reactive Protein NT-Pro-B Natriuret Pep Total Protein Albumin LDL Cholesterol Direct Vitamin B12 Crossmatch 11/16/21 11/16/21 11/16/21 11:34 14:00 15:25 WBC 17.2 H RBC 2.08 L Hgb 4.7 L* Hct 16.2 L* MCV 78 L MCH 23 L MCHC 29 L RDW 26.0 H Plt Count Seg Neuts % (Manual) 87.0 H Lymphocytes % (Manual) 8.0 L Seg Neutrophils # Man 15.0 H Lymphocytes # (Manual) Monocytes # (Manual) 0.9 H PT INR D-Dimer ABG pH ABG pO2 ABG HCO3 ABG O2 Saturation ABG Base Excess ABG Hemoglobin Oxyhemoglobin Sodium Potassium Chloride Carbon Dioxide BUN Glucose POC Glucose 131 H Lactic Acid Calcium Phosphorus Magnesium AST ALT Alkaline Phosphatase Lactate Dehydrogenase Troponin T C-Reactive Protein NT-Pro-B Natriuret Pep Total Protein Albumin LDL Cholesterol Direct Vitamin B12 Crossmatch See Detail 11/16/21 11/16/21 11/16/21 15:25 17:21 22:43 WBC RBC Hgb 8.6 L D Hct 27.7 L D MCV MCH MCHC RDW Plt Count Seg Neuts % (Manual) Lymphocytes % (Manual) Seg Neutrophils # Man Lymphocytes # (Manual) Monocytes # (Manual) PT INR D-Dimer ABG pH ABG pO2 ABG HCO3 ABG O2 Saturation ABG Base Excess ABG Hemoglobin Oxyhemoglobin Sodium 148 H Potassium Chloride 113.2 H Carbon Dioxide BUN 84 H Glucose 164 H POC Glucose 124 H Lactic Acid Calcium 7.6 L Phosphorus Magnesium AST ALT Alkaline Phosphatase Lactate Dehydrogenase Troponin T C-Reactive Protein NT-Pro-B Natriuret Pep Total Protein Albumin LDL Cholesterol Direct Vitamin B12 Crossmatch 11/16/21 11/17/21 11/17/21 23:07 05:33 05:56 WBC 25.1 H RBC 3.47 L Hgb 8.7 L Hct 28.5 L MCV MCH 25 L MCHC RDW 22.3 H Plt Count Seg Neuts % (Manual) Lymphocytes % (Manual) Seg Neutrophils # Man Lymphocytes # (Manual) Monocytes # (Manual) PT INR D-Dimer ABG pH ABG pO2 ABG HCO3 ABG O2 Saturation ABG Base Excess ABG Hemoglobin Oxyhemoglobin Sodium Potassium Chloride Carbon Dioxide BUN Glucose POC Glucose 128 H 133 H Lactic Acid Calcium Phosphorus Magnesium AST ALT Alkaline Phosphatase Lactate Dehydrogenase Troponin T C-Reactive Protein NT-Pro-B Natriuret Pep Total Protein Albumin LDL Cholesterol Direct Vitamin B12 Crossmatch 11/17/21 11/17/21 11/17/21 05:56 11:00 11:55 WBC RBC Hgb 8.3 L Hct 26.9 L MCV MCH MCHC RDW Plt Count Seg Neuts % (Manual) Lymphocytes % (Manual) Seg Neutrophils # Man Lymphocytes # (Manual) Monocytes # (Manual) PT INR D-Dimer ABG pH ABG pO2 ABG HCO3 ABG O2 Saturation ABG Base Excess ABG Hemoglobin Oxyhemoglobin Sodium 151 H Potassium Chloride 113.6 H Carbon Dioxide BUN 85 H Glucose 132 H POC Glucose 121 H Lactic Acid Calcium 7.8 L Phosphorus Magnesium AST ALT Alkaline Phosphatase Lactate Dehydrogenase Troponin T C-Reactive Protein NT-Pro-B Natriuret Pep Total Protein 5.1 L Albumin 2.2 L LDL Cholesterol Direct Vitamin B12 Crossmatch 11/17/21 11/17/21 11/18/21 18:04 18:55 00:26 WBC RBC Hgb 7.5 L 7.1 L Hct 24.8 L 23.6 L MCV MCH MCHC RDW Plt Count Seg Neuts % (Manual) Lymphocytes % (Manual) Seg Neutrophils # Man Lymphocytes # (Manual) Monocytes # (Manual) PT INR D-Dimer ABG pH ABG pO2 ABG HCO3 ABG O2 Saturation ABG Base Excess ABG Hemoglobin Oxyhemoglobin Sodium Potassium Chloride Carbon Dioxide BUN Glucose POC Glucose 144 H Lactic Acid Calcium Phosphorus Magnesium AST ALT Alkaline Phosphatase Lactate Dehydrogenase Troponin T C-Reactive Protein NT-Pro-B Natriuret Pep Total Protein Albumin LDL Cholesterol Direct Vitamin B12 Crossmatch 11/18/21 11/18/21 11/18/21 00:43 05:10 05:10 WBC 12.5 H RBC 2.39 L Hgb 6.1 L Hct 20.2 L MCV MCH 25 L MCHC RDW 23.2 H Plt Count Seg Neuts % (Manual) Lymphocytes % (Manual) Seg Neutrophils # Man Lymphocytes # (Manual) Monocytes # (Manual) PT INR D-Dimer ABG pH ABG pO2 ABG HCO3 ABG O2 Saturation ABG Base Excess ABG Hemoglobin Oxyhemoglobin Sodium 131 L D Potassium 2.9 L* D Chloride 97.8 L Carbon Dioxide BUN 58 H Glucose 665 H* POC Glucose 139 H Lactic Acid Calcium 7.0 L Phosphorus 2.20 L D Magnesium 1.50 L AST ALT Alkaline Phosphatase Lactate Dehydrogenase Troponin T C-Reactive Protein NT-Pro-B Natriuret Pep Total Protein Albumin LDL Cholesterol Direct Vitamin B12 Crossmatch 11/18/21 11/18/21 11/18/21 05:23 07:10 10:45 WBC RBC Hgb Hct MCV MCH MCHC RDW Plt Count Seg Neuts % (Manual) Lymphocytes % (Manual) Seg Neutrophils # Man Lymphocytes # (Manual) Monocytes # (Manual) PT INR D-Dimer ABG pH ABG pO2 ABG HCO3 ABG O2 Saturation ABG Base Excess ABG Hemoglobin Oxyhemoglobin Sodium 148 H D Potassium 3.1 L Chloride 111.9 H Carbon Dioxide BUN 63 H Glucose 141 H POC Glucose 124 H Lactic Acid Calcium 8.1 L D Phosphorus Magnesium AST ALT Alkaline Phosphatase Lactate Dehydrogenase Troponin T C-Reactive Protein NT-Pro-B Natriuret Pep Total Protein Albumin LDL Cholesterol Direct Vitamin B12 Crossmatch See Detail 11/18/21 11/19/21 11/19/21 11:57 00:19 04:55 WBC RBC 3.35 L Hgb 9.0 L 8.9 L Hct 28.3 L D 28.1 L MCV MCH 27 L MCHC RDW 20.3 H Plt Count Seg Neuts % (Manual) Lymphocytes % (Manual) Seg Neutrophils # Man Lymphocytes # (Manual) Monocytes # (Manual) PT INR D-Dimer ABG pH ABG pO2 ABG HCO3 ABG O2 Saturation ABG Base Excess ABG Hemoglobin Oxyhemoglobin Sodium Potassium Chloride Carbon Dioxide BUN Glucose POC Glucose 119 H Lactic Acid Calcium Phosphorus Magnesium AST ALT Alkaline Phosphatase Lactate Dehydrogenase Troponin T C-Reactive Protein NT-Pro-B Natriuret Pep Total Protein Albumin LDL Cholesterol Direct Vitamin B12 Crossmatch 11/19/21 11/19/21 11/20/21 04:55 05:42 00:55 WBC RBC Hgb 9.0 L Hct 28.6 L MCV MCH MCHC RDW Plt Count Seg Neuts % (Manual) Lymphocytes % (Manual) Seg Neutrophils # Man Lymphocytes # (Manual) Monocytes # (Manual) PT INR D-Dimer ABG pH ABG pO2 ABG HCO3 ABG O2 Saturation ABG Base Excess ABG Hemoglobin Oxyhemoglobin Sodium Potassium 3.5 L Chloride 108.6 H Carbon Dioxide BUN 47 H Glucose 207 H POC Glucose 63 L Lactic Acid Calcium 7.1 L Phosphorus Magnesium AST ALT Alkaline Phosphatase Lactate Dehydrogenase Troponin T C-Reactive Protein NT-Pro-B Natriuret Pep Total Protein Albumin LDL Cholesterol Direct Vitamin B12 Crossmatch 11/20/21 11/20/21 11/20/21 05:40 05:40 Unknown WBC RBC 3.40 L Hgb 9.1 L Hct 28.8 L MCV MCH 27 L MCHC RDW 20.7 H Plt Count Seg Neuts % (Manual) Lymphocytes % (Manual) Seg Neutrophils # Man Lymphocytes # (Manual) Monocytes # (Manual) PT INR D-Dimer ABG pH ABG pO2 ABG HCO3 ABG O2 Saturation ABG Base Excess -2.7 L ABG Hemoglobin 9.5 L Oxyhemoglobin 94.3 L Sodium Potassium 3.5 L Chloride 108.9 H Carbon Dioxide BUN 37 H Glucose 117 H POC Glucose Lactic Acid Calcium 7.5 L Phosphorus Magnesium AST ALT Alkaline Phosphatase Lactate Dehydrogenase Troponin T C-Reactive Protein NT-Pro-B Natriuret Pep Total Protein Albumin LDL Cholesterol Direct Vitamin B12 Crossmatch 11/21/21 11/21/21 11/21/21 04:30 04:30 16:00 WBC RBC 3.25 L Hgb 8.6 L Hct 28.1 L MCV MCH 26 L MCHC RDW 20.7 H Plt Count Seg Neuts % (Manual) Lymphocytes % (Manual) Seg Neutrophils # Man Lymphocytes # (Manual) Monocytes # (Manual) PT INR D-Dimer ABG pH ABG pO2 114.2 H ABG HCO3 ABG O2 Saturation ABG Base Excess ABG Hemoglobin 9.1 L Oxyhemoglobin Sodium 134 L Potassium Chloride Carbon Dioxide 20 L BUN 34 H Glucose POC Glucose Lactic Acid Calcium 7.1 L Phosphorus Magnesium AST ALT Alkaline Phosphatase Lactate Dehydrogenase Troponin T C-Reactive Protein NT-Pro-B Natriuret Pep Total Protein Albumin LDL Cholesterol Direct Vitamin B12 Crossmatch 11/22/21 11/22/21 11/22/21 07:07 07:07 23:54 WBC RBC 3.30 L Hgb 9.0 L Hct 28.5 L MCV MCH 27 L MCHC RDW 21.0 H Plt Count Seg Neuts % (Manual) Lymphocytes % (Manual) Seg Neutrophils # Man Lymphocytes # (Manual) Monocytes # (Manual) PT INR D-Dimer ABG pH ABG pO2 ABG HCO3 ABG O2 Saturation ABG Base Excess ABG Hemoglobin Oxyhemoglobin Sodium Potassium Chloride Carbon Dioxide BUN 32 H Glucose 106 H POC Glucose 110 H Lactic Acid Calcium 7.5 L Phosphorus Magnesium AST ALT Alkaline Phosphatase Lactate Dehydrogenase Troponin T C-Reactive Protein NT-Pro-B Natriuret Pep Total Protein Albumin LDL Cholesterol Direct Vitamin B12 Crossmatch 11/23/21 11/23/21 11/23/21 04:38 04:38 06:01 WBC RBC 3.23 L Hgb 8.8 L Hct 28.0 L MCV MCH 27 L MCHC RDW 21.3 H Plt Count Seg Neuts % (Manual) Lymphocytes % (Manual) Seg Neutrophils # Man Lymphocytes # (Manual) Monocytes # (Manual) PT INR D-Dimer ABG pH ABG pO2 ABG HCO3 ABG O2 Saturation ABG Base Excess ABG Hemoglobin Oxyhemoglobin Sodium 136 L Potassium Chloride Carbon Dioxide 20 L BUN 32 H Glucose 109 H POC Glucose 115 H Lactic Acid Calcium 7.7 L Phosphorus Magnesium AST ALT Alkaline Phosphatase Lactate Dehydrogenase Troponin T C-Reactive Protein NT-Pro-B Natriuret Pep Total Protein Albumin LDL Cholesterol Direct Vitamin B12 Crossmatch 11/23/21 11/24/21 11/24/21 11:40 00:03 04:13 WBC RBC 3.18 L Hgb 8.5 L Hct 27.5 L MCV MCH 27 L MCHC RDW 21.6 H Plt Count Seg Neuts % (Manual) Lymphocytes % (Manual) Seg Neutrophils # Man Lymphocytes # (Manual) Monocytes # (Manual) PT INR D-Dimer ABG pH ABG pO2 ABG HCO3 ABG O2 Saturation ABG Base Excess ABG Hemoglobin Oxyhemoglobin Sodium Potassium Chloride Carbon Dioxide BUN Glucose POC Glucose 117 H 111 H Lactic Acid Calcium Phosphorus Magnesium AST ALT Alkaline Phosphatase Lactate Dehydrogenase Troponin T C-Reactive Protein NT-Pro-B Natriuret Pep Total Protein Albumin LDL Cholesterol Direct Vitamin B12 Crossmatch 11/24/21 11/24/21 11/24/21 04:13 05:30 11:10 WBC RBC Hgb Hct MCV MCH MCHC RDW Plt Count Seg Neuts % (Manual) Lymphocytes % (Manual) Seg Neutrophils # Man Lymphocytes # (Manual) Monocytes # (Manual) PT INR D-Dimer ABG pH ABG pO2 ABG HCO3 ABG O2 Saturation ABG Base Excess ABG Hemoglobin Oxyhemoglobin Sodium Potassium Chloride Carbon Dioxide BUN 31 H Glucose 101 H POC Glucose 115 H 107 H Lactic Acid Calcium 7.7 L Phosphorus Magnesium AST ALT Alkaline Phosphatase Lactate Dehydrogenase Troponin T C-Reactive Protein NT-Pro-B Natriuret Pep Total Protein Albumin LDL Cholesterol Direct Vitamin B12 Crossmatch 11/24/21 11/24/21 11/25/21 16:34 17:57 05:12 WBC RBC 3.11 L Hgb 8.2 L Hct 26.6 L MCV MCH 26 L MCHC RDW 21.3 H Plt Count Seg Neuts % (Manual) Lymphocytes % (Manual) Seg Neutrophils # Man Lymphocytes # (Manual) Monocytes # (Manual) PT INR D-Dimer ABG pH ABG pO2 ABG HCO3 ABG O2 Saturation ABG Base Excess ABG Hemoglobin Oxyhemoglobin Sodium Potassium Chloride Carbon Dioxide BUN Glucose POC Glucose 115 H 110 H Lactic Acid Calcium Phosphorus Magnesium AST ALT Alkaline Phosphatase Lactate Dehydrogenase Troponin T C-Reactive Protein NT-Pro-B Natriuret Pep Total Protein Albumin LDL Cholesterol Direct Vitamin B12 Crossmatch 11/25/21 11/25/21 11/26/21 05:12 11:20 05:00 WBC RBC 3.30 L Hgb 8.8 L Hct 28.2 L MCV MCH 27 L MCHC RDW 20.7 H Plt Count Seg Neuts % (Manual) Lymphocytes % (Manual) Seg Neutrophils # Man Lymphocytes # (Manual) Monocytes # (Manual) PT INR D-Dimer ABG pH ABG pO2 ABG HCO3 ABG O2 Saturation ABG Base Excess ABG Hemoglobin Oxyhemoglobin Sodium Potassium Chloride Carbon Dioxide BUN 32 H Glucose 118 H POC Glucose 118 H Lactic Acid Calcium 8.2 L Phosphorus Magnesium AST ALT Alkaline Phosphatase Lactate Dehydrogenase Troponin T C-Reactive Protein NT-Pro-B Natriuret Pep Total Protein Albumin LDL Cholesterol Direct Vitamin B12 Crossmatch 11/26/21 11/26/21 11/26/21 05:00 05:00 05:44 WBC RBC Hgb Hct MCV MCH MCHC RDW Plt Count Seg Neuts % (Manual) Lymphocytes % (Manual) Seg Neutrophils # Man Lymphocytes # (Manual) Monocytes # (Manual) PT 16.9 H INR 1.24 H D-Dimer ABG pH ABG pO2 ABG HCO3 ABG O2 Saturation ABG Base Excess ABG Hemoglobin Oxyhemoglobin Sodium Potassium Chloride Carbon Dioxide BUN 31 H Glucose 104 H POC Glucose 110 H Lactic Acid Calcium 7.9 L Phosphorus Magnesium AST ALT Alkaline Phosphatase Lactate Dehydrogenase Troponin T C-Reactive Protein NT-Pro-B Natriuret Pep Total Protein Albumin LDL Cholesterol Direct Vitamin B12 Crossmatch 11/26/21 11/27/21 11/27/21 23:55 07:40 07:40 WBC RBC 3.18 L Hgb 8.5 L Hct 27.0 L MCV MCH 27 L MCHC RDW 21.2 H Plt Count Seg Neuts % (Manual) Lymphocytes % (Manual) Seg Neutrophils # Man Lymphocytes # (Manual) Monocytes # (Manual) PT INR D-Dimer ABG pH ABG pO2 ABG HCO3 ABG O2 Saturation ABG Base Excess ABG Hemoglobin Oxyhemoglobin Sodium Potassium Chloride Carbon Dioxide BUN 27 H Glucose 112 H POC Glucose 63 L Lactic Acid Calcium 7.6 L Phosphorus Magnesium AST ALT Alkaline Phosphatase Lactate Dehydrogenase Troponin T C-Reactive Protein NT-Pro-B Natriuret Pep Total Protein Albumin LDL Cholesterol Direct Vitamin B12 Crossmatch 11/27/21 11/27/21 11/27/21 12:04 13:40 13:40 WBC RBC 3.31 L Hgb 8.7 L Hct 28.0 L MCV MCH 26 L MCHC RDW 20.7 H Plt Count Seg Neuts % (Manual) Lymphocytes % (Manual) Seg Neutrophils # Man Lymphocytes # (Manual) Monocytes # (Manual) PT INR D-Dimer ABG pH ABG pO2 ABG HCO3 ABG O2 Saturation ABG Base Excess ABG Hemoglobin Oxyhemoglobin Sodium 136 L Potassium Chloride Carbon Dioxide BUN 25 H Glucose 127 H POC Glucose 109 H Lactic Acid Calcium 7.6 L Phosphorus Magnesium 1.40 L AST ALT Alkaline Phosphatase Lactate Dehydrogenase Troponin T C-Reactive Protein NT-Pro-B Natriuret Pep Total Protein Albumin LDL Cholesterol Direct Vitamin B12 Crossmatch 11/27/21 11/27/21 11/28/21 17:44 23:33 12:20 WBC RBC Hgb Hct MCV MCH MCHC RDW Plt Count Seg Neuts % (Manual) Lymphocytes % (Manual) Seg Neutrophils # Man Lymphocytes # (Manual) Monocytes # (Manual) PT INR D-Dimer ABG pH ABG pO2 ABG HCO3 ABG O2 Saturation ABG Base Excess ABG Hemoglobin Oxyhemoglobin Sodium Potassium Chloride Carbon Dioxide BUN Glucose POC Glucose 107 H 108 H 114 H Lactic Acid Calcium Phosphorus Magnesium AST ALT Alkaline Phosphatase Lactate Dehydrogenase Troponin T C-Reactive Protein NT-Pro-B Natriuret Pep Total Protein Albumin LDL Cholesterol Direct Vitamin B12 Crossmatch 11/29/21 11/29/21 11/29/21 00:09 03:20 03:20 WBC RBC 3.05 L Hgb 8.2 L Hct 25.8 L MCV MCH 27 L MCHC RDW 20.9 H Plt Count Seg Neuts % (Manual) Lymphocytes % (Manual) Seg Neutrophils # Man Lymphocytes # (Manual) Monocytes # (Manual) PT INR D-Dimer ABG pH ABG pO2 ABG HCO3 ABG O2 Saturation ABG Base Excess ABG Hemoglobin Oxyhemoglobin Sodium 133 L Potassium Chloride Carbon Dioxide BUN 24 H Glucose 137 H POC Glucose 134 H Lactic Acid Calcium 7.4 L Phosphorus Magnesium AST ALT Alkaline Phosphatase Lactate Dehydrogenase Troponin T C-Reactive Protein NT-Pro-B Natriuret Pep Total Protein Albumin LDL Cholesterol Direct Vitamin B12 Crossmatch 11/29/21 11/29/21 11/29/21 05:38 11:39 17:11 WBC RBC Hgb Hct MCV MCH MCHC RDW Plt Count Seg Neuts % (Manual) Lymphocytes % (Manual) Seg Neutrophils # Man Lymphocytes # (Manual) Monocytes # (Manual) PT INR D-Dimer ABG pH ABG pO2 ABG HCO3 ABG O2 Saturation ABG Base Excess ABG Hemoglobin Oxyhemoglobin Sodium Potassium Chloride Carbon Dioxide BUN Glucose POC Glucose 117 H 143 H 124 H Lactic Acid Calcium Phosphorus Magnesium AST ALT Alkaline Phosphatase Lactate Dehydrogenase Troponin T C-Reactive Protein NT-Pro-B Natriuret Pep Total Protein Albumin LDL Cholesterol Direct Vitamin B12 Crossmatch 11/29/21 11/30/21 11/30/21 20:15 05:40 05:40 WBC 12.6 H RBC 3.41 L Hgb 9.1 L Hct 28.9 L MCV MCH 27 L MCHC RDW 20.4 H Plt Count Seg Neuts % (Manual) Lymphocytes % (Manual) Seg Neutrophils # Man Lymphocytes # (Manual) Monocytes # (Manual) PT INR D-Dimer ABG pH ABG pO2 ABG HCO3 ABG O2 Saturation ABG Base Excess ABG Hemoglobin Oxyhemoglobin Sodium Potassium Chloride Carbon Dioxide BUN 24 H Glucose 131 H POC Glucose Lactic Acid Calcium 7.6 L Phosphorus Magnesium AST ALT Alkaline Phosphatase Lactate Dehydrogenase Troponin T 0.045 H C-Reactive Protein NT-Pro-B Natriuret Pep Total Protein Albumin LDL Cholesterol Direct 25 L Vitamin B12 Crossmatch 11/30/21 11/30/21 12/01/21 11:29 16:51 05:00 WBC RBC 2.97 L Hgb 8.0 L Hct 25.0 L MCV MCH 27 L MCHC RDW 20.8 H Plt Count Seg Neuts % (Manual) Lymphocytes % (Manual) Seg Neutrophils # Man Lymphocytes # (Manual) Monocytes # (Manual) PT INR D-Dimer ABG pH ABG pO2 ABG HCO3 ABG O2 Saturation ABG Base Excess ABG Hemoglobin Oxyhemoglobin Sodium Potassium Chloride Carbon Dioxide BUN Glucose POC Glucose 123 H 114 H Lactic Acid Calcium Phosphorus Magnesium AST ALT Alkaline Phosphatase Lactate Dehydrogenase Troponin T C-Reactive Protein NT-Pro-B Natriuret Pep Total Protein Albumin LDL Cholesterol Direct Vitamin B12 Crossmatch 12/01/21 12/01/21 05:00 05:25 WBC RBC Hgb Hct MCV MCH MCHC RDW Plt Count Seg Neuts % (Manual) Lymphocytes % (Manual) Seg Neutrophils # Man Lymphocytes # (Manual) Monocytes # (Manual) PT INR D-Dimer ABG pH ABG pO2 ABG HCO3 ABG O2 Saturation ABG Base Excess ABG Hemoglobin Oxyhemoglobin Sodium 136 L Potassium Chloride Carbon Dioxide BUN 24 H Glucose 117 H POC Glucose 108 H Lactic Acid Calcium 7.5 L Phosphorus Magnesium 1.60 L AST ALT Alkaline Phosphatase Lactate Dehydrogenase Troponin T C-Reactive Protein NT-Pro-B Natriuret Pep Total Protein Albumin LDL Cholesterol Direct Vitamin B12 Crossmatch Allied health notes reviewed: nursing
[2021-12-01] MEDS: FUROSEMIDE 20 MG/2 ML INJ IV SCH (22:25)
[2021-12-02] MEDS: INSULIN LISPRO 100 UNIT/ML SUB-Q SCH ×4 (00:30→19:52)
[2021-12-02 05:11] LABS: Hematocrit 24.3 % (30.3-42.9); Hemoglobin 7.7 gm/dl (10.1-14.3); Mean Corpuscular HGB Conc 32 % (30-34); Mean Corpuscular Volume 83 fl (79-97); Platelet Count 182 K/mm3 (140-440); Red Blood Count 2.92 M/mm3 (3.65-5.03)
[2021-12-02] MEDS: LEVOTHYROXINE 125 MCG TAB PO SCH (05:13)
[2021-12-02 05:14] LABS: Red Cell Distribution Width 20.5 % (13.2-15.2)
[2021-12-02 05:27] LABS: Blood Urea Nitrogen 26 mg/dL (7-17); Calcium 7.4 mg/dL (8.4-10.2); Hemolysis Index 0
[2021-12-02 05:34] LABS: BUN/Creatinine Ratio 43
[2021-12-02] MEDS: HYDROcodone/ACETAMINOPHEN 10-325MG TAB FEEDTUBE SCH ×3 (08:29→21:15)
[2021-12-02] MEDS: SUCRALFATE 1 GM/10 ML ORAL LIQD PO SCH ×3 (08:30→21:15)
--- NOTE | 2021-12-02 11:23 | Progress Note ---
<LONNIE MAURICE - Last Filed: 12/02/21 16:31> Assessment and Plan Assessment and plan: This is a 81-year-old female with known history of diabetes mellitus, hypertension, PPM, and arthritis admitted for sepsis and acute hypoxia respiratory failure 2/2 bilateral pneumonia requiring intubation and ventilatory support Hospital Course to date: 11/04/2021: Empiric therapy with iv levaquin/vancomycin. COVID PCR pending. Will consult ID. PCCM consulted, will follow recs. Hypotensive this AM, ordered bolus and fluids at 150 cc/hr. May require pressor support if bp does not improve. 11/05/2021: GBS on bcx +, currently on rocephin IV. Currently on bipap due to respiratory distress overnight. Worsening BL opacities on CXR. May be volume overload vs pneumonia. Unfortunately bp too low for lasix at this point. WIll continue levophed and bipap. Once able to tolerate, may do trial of albumin/lasi x. Call attempt made to Niraj, no response. Will try again tomorrow to update. 11/06/2021: Decompensated overnight requiring intubation. CXR shows worsening interstitial infiltrates. Currenlty on dopamine, levophed, vasopressin. PICC line ordered. Advised RN to place gamble for I/O monitoring. Would benefit from diuresis but very volume overloaded. Prognosis guarded 11/08: Off sedation this am, remains unresponsive only grimace to pain. Hold all sedatives agents for now, patient is off pressors this am. Hypernatremia from today's lab- D5W X1bag, and low K repleted, repeat lab in the am. Severe constipation also noted from KUB, BR added. 11/09: Sudden SPO2 drop in the 60s this am. Patient was manually bagged and deep suctioned. Patient is currently stable on the vent, repeat CXR with no significant change. D/w CCM Mucomyst and brochodilator added. Patient mentation is unchanged, continue to hold off on sedative agents. Neurology consulted. 11/10: Acute DVT noted on bilateral lower extremity Doppler ultrasound therefore she was started on Lovenox treatment dose. Failed SBT. Hypernatremia and hyperchloremia noted, free water flush adjusted. 11/11: Patient noted to be febrile with increasing of the cytosis, UA/BC sent and CXR ordered. ID escalated antibiotics to cefepime. CXR demonstrated mucous plug, bedside bronchoscopy was performed and O ETT was changed over bougie from 6 cm to 7.5. Patient was noted to have a pneumothorax postprocedure and chest tube was placed. Family updated by [facility]. Free water flush increased and will add Jaswant supplementation. 11/12: Patient not noted to follow commands, hypernatremia worsen/persist, increasing free water flush, potassium and magnesium and phosphorus repleted. Hemoglobin noted to be 7.1/24.5 from 7.03/12 yesterday. We will continue to trend and monitor. Vent changes per [facility]. Repeat CXR showed no residual pneumo thorax. Consider waterseal tomorrow. Given persistent leukocytosis antibiotics escalated to cefepime per ID. 11/13: Remains on cefepime and vancomycin, vent changes per [facility]. Anemia noted and given 1 unit PRBC. And beta-charleen held in setting of Levophed drip infusing. Remains on fentanyl drip. 11/14: Patient put on CPAP trial by [facility], will continue chest tube until after extubation. Will rest on assist control. CT brain was cancelled by [employer] and reordered. 11/15: Patient removed chest tube overnight. Will obtain cxr. remains on low dose levo. CTH completed with no acute findings. RT to place on CPAP. 11/16: Hypernatremia/hyperchloremia noted on the increase of day water flushes. Anemia noted and ordered PRBC. asked RT to place on cpap but not done yet 11/17: Patient remains on the vent, awake and following commands. H&H stable s/p 2units PRBCs. GI on consult, no intervention at this time. Will continue protonix gtt and serial H&H Q6hrs. Keep patient NPO for now, D5w added for hypernatremia and NPO status. Plan for IVC filter placement today by Vascular. 11/18: Patient is s/p IVC filter. H&H continue to trend down, hbg 6.1 this am, 1 unit of PRBCs ordered. Plan for possible EGD today by GI. Keep patient NPO, continue PPI drip and serial H&H Q6hrs. Electrolytes repleted, repeat lab in the am 11/19: S/p EGD- larger duodenal ulcer noted, see operative note. GI recommendat ions noted also noted. H&H stable this am. Keep patient on protonix gtt for now. Will keep patient NPO, continue IVF and serial H&H for now. Electrolytes repleted, repeat labs in the am 2/3: Very agitated and restless this am, fentanyl gtt resumed. Patient remains on protonix gtt, H&H remains stable. Will switch protonix gtt to IV BID, continue carafate and okay to resume meds at this time. Will F/u with GI to see if TF can be resumed. Gamble was reinserted overnight for retention. Electrolytes repleted, repeat in the am. Plan for possible PST today for possible extubation per CCM. 11/21: Patient is now on seroquel and patient's home buspar resumed. Patient more calm this morning, fentanyl gtt is off. H&H remains stable and patient is tolerating TF. Patient had a runs of Vtach/PVCs this am, BB added per Cardio. Continue daily PS and wean trial for possible extubation. 11/22: Back on fentanyl gtt overnight , RASS o to -1, following commands. Patient failed PST this am due to increased work of breathing and low SPO2, ABG pending. Patient is also with worsen pitting edema, lasix is still on hold. Will discuss with cardio and CCM to possibly resume lasix. 11/23: MARIA DEL CARMEN overnight. Patient failed PST again this am. Per CCM plan for possible trach and PEG, hold off on IV lasix for now. General surgery consulted and family is aware of possible Trach and PEG. 11/24: Trach/PEG pending this week, continue SBT/SAT as tolerated. No acute events reported overnight. 11/25: Patient was n.p.o. overnight and will remain n.p.o. tonight for trach/PEG tomorrow morning. She failed to support trial again. KUB obtained due to distended belly. 11/26: Patient scheduled for tracheostomy and PEG tube placement today, has been n.p.o. since midnight. No acute events reported overnight. [facility] ordered rosalinda thicone scheduled. 11/27: No acute events reported overnight, patient received trach/PEG yesterday. Has been on feedings since last night. Still awaiting LTAC placement. 11/28: Patient magnesium repleted, repeat a.m. labs, SBT 11/29: Patient complains of chest pain but ECG obtained which showed no acute findings, ordered troponin. Patient failed CPAP yesterday and was trialed again today. levophed was restarted but will aggressively wean 11/30: Patient failed SBT. Continue supportive care. Started gabapentin today 12/01: MARIA DEL CARMEN overnight. Continue daily PST. Case management to arrange possible placement 12/02: Report of dark stools overnight, patient is hemodynamically stable. H&H stable, patient is on PPI. Will continue to trend H&H. Continue daily PST as tolerated. Awaiting LTAC vs SNF placement. Assessment and Plan #Septic Shock POA #Bilateral Pneumonia #Bacteremia - Presented with fevers, leukocytosis, and hypotension - COVID PCR negative - 11/04 Bcult with 3/4 group B strep bacteremia - Repeat Bculture NGTD - 11/04 2D Echo with no evidence of vegetation - ID on consult, appreciate recommendations - Patient completed IV Abx course - F/u on culture data - Trend CBC #Acute Hypoxic Respiratory Failure 11/19 #Bilateral Pleural Effusion #Right Pneumothorax-resolved #Bilateral Pneumonia - COVID PCR negative - CXR shows Bilateral opacities, may be volume overloaded - CCM consulted, appreciate recommendations - Intubated on 11/06, ETT exchanged on 11/11 - 11/11 Bronchoscopy--Complicated by spontaneous pneumothorax - 11/11 S/p chest tube placement for right pneumothorax, removed by patient on 11/15 - 11/26 s/p Tracheostomy and PEGtube placement - This am Vent Setting:CPAP-25%,6 PS-14 - Continue Nebs treatment - Continue daily PST as tolerated - VAP bundle addressed - Aspiration precaution HOB above 30 - ABG and CXR per CCM - Continue SPO2 monitoring for SPO2 goal above 92% #CHF- EF 30-35% with PPM #Hypotension-Resolved #Septic Kristian-resolved - Was on 3 pressors initially - BP remains stable - SR on the monitor, HR 70-90s - 11/04 Echo-EF 30-35% - Cardiology on consult - Continue beta-charleen - Not on aspirin due to allergy - Statins resumed - Continue blood pressure monitor per protocol - Maintain MAP above 65 #Acute Blood Loss #Acute GI Bleed #Acute Microcytic Anemia - Report of melena &black tarry stools - s/p a total of 5units of PRBCs since admit - H&H remains stable post EGD - GI on consult - 11/18 EGD- Large cratered ulcer in the posterior duodenal bulb about 2 cm in diameter. Visible vessel present. Mild active oozing from the ulcer bed. A total of 3 injections were performed around the ulcer for a total of 2.5 cc of dilute epinephrine and hemostasis was obtained.--> See full report - Continue PPI and Carafate - Patient is tolerating TF - Continue to trend CBC - Transfuse for H&H less than 7 - Hold AC for now #Hyponatremia - FWF adjusted - Strict intake and output - Continue to monitor and replace electrolytes as needed - Trend BMP,mag, & phosp #Urinary Retention - Gamble reinserted on 11/19 for retention - Keep gamble for now #Acute DVT in RLE - BLE doppler + Acute DVT in the right external iliac vein, common femoral vein, and superior aspect of femoral vein - Was on Therapeutic Lovenox- held to due GI Bleed - 11/17 s/p IVC filter placement by Vascular Surg #Agitation #Acute Encephalopathy-Resolved - Awake and following commands - Continue Buspar and seroquel - CT head noted - Neurology consulted - PRN analgesia for pain management #Transaminitis/Shock Liver - Probably due to bacteria/spetic shock - Continue to Trend LFTs #Endo: h/o DM and hypothyroidism -Continue home Synthroid -Accu-Cheks every 6 -Avoid hypoglycemia The high probability of a clinically significant, sudden or life threatening deterioration of the [multi] system(s) required my full and direct attention, intervention and personal management. The aggregate critical care time was [60] minutes. This time is in addition to time spent performing reported procedures but includes the following: [x] Data Review and interpretation [x] Patient assessment and monitoring of vital signs [x] Documentation [x] Medication orders and management Disposition Plan: ICU Total Time Spent with Patient (Minutes): 60 History Interval history: Patient seen and examined at the bedside. Remains on the vent. Awake and alert, following simple commands. Per RN report of X1 dark stools overnight. Otherwise, no acute events overnight Hospitalist Physical - Constitutional Vitals: Temp Pulse Resp BP Pulse Ox 98.5 F 77 14 110/46 96 12/02/21 08:00 12/02/21 09:00 12/02/21 09:00 12/02/21 09:00 12/02/21 09:00 General appearance: Present: no acute distress, other (On the vent) - EENT Eyes: Present: PERRL, EOM intact ENT: hearing intact - Neck Neck: Present: normal ROM - Respiratory Respiratory effort: normal Respiratory: bilateral: rhonchi - Cardiovascular Rhythm: regular Heart Sounds: Present: S1 & S2 - Extremities Extremities: no ischemia, pulses intact, pulses symmetrical Extremity abnormal: edema - Peripheral Assessment Generalized Edema Type: Non-pitting Edema Degree: 2+ Capillary Refill: < 3 seconds Skin Temperature: Warm Peripheral Pulses: within normal limits - Abdominal General gastrointestinal: soft, non-distended, normal bowel sounds - Integumentary Integumentary: Present: warm, dry - Psychiatric Psychiatric: appropriate mood/affect, cooperative - Neurologic Neurologic: CNII-XII intact, moves all extremities - Allied Health Allied health notes reviewed: nursing, case management HEART Score - HEART Score Troponin: Troponin T 0.045 ng/mL (0.00-0.029) H 11/29/21 20:15 Results - Labs CBC & Chem 7: 12/02/21 04:20 12/02/21 04:20 Labs: Laboratory Last Values WBC 7.9 K/mm3 (4.5-11.0) 12/02/21 04:20 RBC 2.92 M/mm3 (3.65-5.03) L 12/02/21 04:20 Hgb 7.7 gm/dl (10.1-14.3) L 12/02/21 04:20 Hct 24.3 % (30.3-42.9) L 12/02/21 04:20 MCV 83 fl (79-97) 12/02/21 04:20 MCH 26 pg (28-32) L 12/02/21 04:20 MCHC 32 % (30-34) 12/02/21 04:20 RDW 20.5 % (13.2-15.2) H 12/02/21 04:20 Plt Count 182 K/mm3 (140-440) 12/02/21 04:20 Add Manual Diff Complete 11/16/21 15:25 Total Counted 100 11/16/21 15:25 Seg Neutrophils % Face Cleaner 11/06/21 15:50 Seg Neuts % (Manual) 87.0 % (40.0-70.0) H 11/16/21 15:25 Band Neutrophils % 0 % 11/16/21 15:25 Lymphocytes % (Manual) 8.0 % (13.4-35.0) L 11/16/21 15:25 Reactive Lymphs % (Man) 0 % 11/16/21 15:25 Monocytes % (Manual) 5.0 % (0.0-7.3) 11/16/21 15:25 Eosinophils % (Manual) 0 % (0.0-4.3) 11/16/21 15:25 Basophils % (Manual) 0 % (0.0-1.8) 11/16/21 15:25 Metamyelocytes % 0 % 11/16/21 15:25 Myelocytes % 0 % 11/16/21 15:25 Promyelocytes % 0 % 11/16/21 15:25 Blast Cells % 0 % 11/16/21 15:25 Nucleated RBC % Not Reportable 11/16/21 15:25 Seg Neutrophils # Man 15.0 K/mm3 (1.8-7.7) H 11/16/21 15:25 Band Neutrophils # 0.0 K/mm3 11/16/21 15:25 Lymphocytes # (Manual) 1.4 K/mm3 (1.2-5.4) 11/16/21 15:25 Abs React Lymphs (Man) 0.0 K/mm3 11/16/21 15:25 Monocytes # (Manual) 0.9 K/mm3 (0.0-0.8) H 11/16/21 15:25 Eosinophils # (Manual) 0.0 K/mm3 (0.0-0.4) 11/16/21 15:25 Basophils # (Manual) 0.0 K/mm3 (0.0-0.1) 11/16/21 15:25 Metamyelocytes # 0.0 K/mm3 11/16/21 15:25 Myelocytes # 0.0 K/mm3 11/16/21 15:25 Promyelocytes # 0.0 K/mm3 11/16/21 15:25 Blast Cells # 0.0 K/mm3 11/16/21 15:25 WBC Morphology Not Reportable 11/16/21 15:25 Hypersegmented Neuts Not Reportable 11/16/21 15:25 Hyposegmented Neuts Not Reportable 11/16/21 15:25 Hypogranular Neuts Not Reportable 11/16/21 15:25 Smudge Cells Not Reportable 11/16/21 15:25 Toxic Granulation Not Reportable 11/16/21 15:25 Toxic Vacuolation Not Reportable 11/16/21 15:25 Dohle Bodies Not Reportable 11/16/21 15:25 Pelger-Huet Anomaly Not Reportable 11/16/21 15:25 Irina Rods Not Reportable 11/16/21 15:25 Platelet Estimate Consistent w auto 11/16/21 15:25 Clumped Platelets Rare 11/16/21 15:25 Plt Clumps, EDTA Not Reportable 11/16/21 15:25 Large Platelets Not Reportable 11/16/21 15:25 Giant Platelets Not Reportable 11/16/21 15:25 Platelet Satelliting Not Reportable 11/16/21 15:25 Plt Morphology Comment Not Reportable 11/16/21 15:25 RBC Morphology Not Reportable 11/16/21 15:25 Dimorphic RBCs Not Reportable 11/16/21 15:25 Polychromasia Not Reportable 11/16/21 15:25 Hypochromasia 2+ 11/16/21 15:25 Poikilocytosis Not Reportable 11/16/21 15:25 Anisocytosis 2+ 11/16/21 15:25 Microcytosis Not Reportable 11/16/21 15:25 Macrocytosis Not Reportable 11/16/21 15:25 Spherocytes Not Reportable 11/16/21 15:25 Pappenheimer Bodies Not Reportable 11/16/21 15:25 Sickle Cells Not Reportable 11/16/21 15:25 Target Cells 2+ 11/16/21 15:25 Tear Drop Cells Not Reportable 11/16/21 15:25 Ovalocytes Not Reportable 11/16/21 15:25 Helmet Cells Not Reportable 11/16/21 15:25 [place] Bodies Not Reportable 11/16/21 15:25 [place] Rings Not Reportable 11/16/21 15:25 Malcom Cells Not Reportable 11/16/21 15:25 Bite Cells Not Reportable 11/16/21 15:25 Crenated Cell Not Reportable 11/16/21 15:25 Elliptocytes Not Reportable 11/16/21 15:25 Acanthocytes (Spur) Not Reportable 11/16/21 15:25 Rouleaux Not Reportable 11/16/21 15:25 Hemoglobin C Crystals Not Reportable 11/16/21 15:25 Schistocytes Not Reportable 11/16/21 15:25 Malaria parasites Not Reportable 11/16/21 15:25 Godfrey Bodies Not Reportable 11/16/21 15:25 Hem Pathologist Commnt No 11/16/21 15:25 PT 16.9 Sec. (12.2-14.9) H 11/26/21 05:00 INR 1.24 (0.87-1.13) H 11/26/21 05:00 APTT 29.2 Sec. (24.2-36.6) 11/26/21 05:00 D-Dimer 2655.00 ng/mlDDU (0-234) H 11/11/21 04:28 ABG pH 7.449 pH Units (7.350-7.450) 11/21/21 16:00 ABG pCO2 32.1 mm Hg 11/21/21 16:00 ABG pO2 114.2 mm Hg (80.0-90.0) H 11/21/21 16:00 ABG HCO3 21.8 mmol/L (20.0-26.0) 11/21/21 16:00 ABG O2 Saturation 98.3 % (95.0-99.0) 11/21/21 16:00 ABG O2 Content 12.5 (0.0-44) 11/21/21 16:00 ABG Base Excess -1.7 mmol/L (-2.0-3.0) 11/21/21 16:00 ABG Hemoglobin 9.1 gm/dl (12.0-16.0) L 11/21/21 16:00 ABG Carboxyhemoglobin 1.9 % (0.0-5.0) 11/21/21 16:00 ABG Methemoglobin 0.5 % (0.0-1.5) 11/21/21 16:00 Oxyhemoglobin 96.0 % (95.0-99.0) 11/21/21 16:00 FiO2 30 % 11/21/21 16:00 Sodium 135 mmol/L (137-145) L 12/02/21 04:20 Potassium 3.8 mmol/L (3.6-5.0) 12/02/21 04:20 Chloride 99.2 mmol/L (98-107) 12/02/21 04:20 Carbon Dioxide 29 mmol/L (22-30) 12/02/21 04:20 Anion Gap 11 mmol/L 12/02/21 04:20 BUN 26 mg/dL (7-17) H 12/02/21 04:20 Creatinine 0.6 mg/dL (0.6-1.2) 12/02/21 04:20 Estimated GFR > 60 ml/min 12/02/21 04:20 BUN/Creatinine Ratio 43 % 12/02/21 04:20 Glucose 121 mg/dL (65-100) H 12/02/21 04:20 POC Glucose 117 mg/dL (70-105) H 12/02/21 11:17 Lactic Acid 3.70 mmol/L (0.7-2.0) H* 11/03/21 22:32 Calcium 7.4 mg/dL (8.4-10.2) L 12/02/21 04:20 Phosphorus 3.10 mg/dL (2.5-4.5) 12/02/21 04:20 Magnesium 2.00 mg/dL (1.7-2.3) 12/02/21 04:20 Ferritin 52.6 ng/mL (10.0-200.0) 11/05/21 06:11 Total Bilirubin 0.50 mg/dL (0.1-1.2) 11/17/21 05:56 Direct Bilirubin < 0.2 mg/dL (0-0.2) 11/11/21 04:28 Indirect Bilirubin 0.1 mg/dL 11/11/21 04:28 AST 36 units/L (5-40) 11/17/21 05:56 ALT 47 units/L (7-56) 11/17/21 05:56 Alkaline Phosphatase 107 units/L (35-129) 11/17/21 05:56 Ammonia 42.0 umol/L (25-60) 11/10/21 14:08 Lactate Dehydrogenase 187 units/L (91-180) H 11/05/21 06:11 Troponin T 0.045 ng/mL (0.00-0.029) H 11/29/21 20:15 C-Reactive Protein 22.20 mg/dL (0.00-1.30) H 11/05/21 06:11 NT-Pro-B Natriuret Pep 7895 pg/mL (0-900) H 11/03/21 22:32 Total Protein 5.1 g/dL (6.3-8.2) L 11/17/21 05:56 Albumin 2.2 g/dL (3.9-5) L 11/17/21 05:56 Albumin/Globulin Ratio 0.8 % 11/17/21 05:56 Triglycerides 59 mg/dL (2-149) 11/29/21 20:15 Cholesterol 74 mg/dL (50-199) 11/29/21 20:15 LDL Cholesterol Direct 25 mg/dL (50-130) L 11/29/21 20:15 HDL Cholesterol 41 mg/dL (40-59) 11/29/21 20:15 Cholesterol/HDL Ratio 1.80 % 11/29/21 20:15 Vitamin B12 1823 pg/mL (211-911) H 11/10/21 14:08 TSH 1.510 mlU/mL (0.270-4.200) 11/10/21 14:08 Urine Color Yellow (Yellow) 11/11/21 09:00 Urine Turbidity Slightly-cloudy (Clear) 11/11/21 09:00 Urine pH 5.0 (5.0-7.0) 11/11/21 09:00 Ur Specific [place] 1.009 (1.003-1.030) 11/11/21 09:00 Urine Protein <15 mg/dl mg/dL (Negative) 11/11/21 09:00 Urine Glucose (UA) Neg mg/dL (Negative) 11/11/21 09:00 Urine Ketones Neg mg/dL (Negative) 11/11/21 09:00 Urine Blood Mod (Negative) 11/11/21 09:00 Urine Nitrite Neg (Negative) 11/11/21 09:00 Urine Bilirubin Neg (Negative) 11/11/21 09:00 Urine Urobilinogen < 2.0 mg/dL (<2.0) 11/11/21 09:00 Ur Leukocyte Esterase Neg (Negative) 11/11/21 09:00 Urine WBC (Auto) < 1.0 /HPF (0.0-6.0) 11/11/21 09:00 Urine RBC (Auto) < 1.0 /HPF (0.0-6.0) 11/11/21 09:00 Coronavirus (PCR) Negative (Negative) 11/10/21 08:30 Blood Type O POSITIVE 11/18/21 10:45 Antibody Screen Negative 11/18/21 10:45 Crossmatch See Detail 11/18/21 10:45 Gamble/IV: Voiding Method Indwelling Catheter Active Medications - Current Medications Current Medications: Generic Name Dose Route Start Last Admin Trade Name Freq PRN Reason Stop Dose Admin Acetaminophen 650 mg 11/04/21 02:03 11/23/21 16:26 Acetaminophen 325 Mg Tab PO 650 mg Q6H PRN Administration Pain MILD(1-3)/Fever >100.5/RODRIGUEZ Hydrocodone Bitart/Acetaminophen 1 each 11/21/21 10:00 12/02/21 08:29 Hydrocodone/Acetaminophen 10-325mg Tab FEEDTUBE 1 each TID YOSSI Administration Lipase/Protease/Amylase 1 each 11/08/21 11:09 Lipase 10,500/Protease 25,000/Amylase 43,750 (Units) Dr Lema FEEDTUBE PRN PRN For Clogged Feeding Tube Buspirone HCl 7.5 mg 11/17/21 22:00 12/01/21 22:24 Buspirone 5 Mg Tab PO 7.5 mg BID YOSSI Administration Dextrose 0 ml 11/10/21 10:52 11/21/21 16:27 Dextrose 10% *Hypoglycemia IV 50 ml PRN PRN Administration Hypoglycemia Fentanyl 1 applic 11/17/21 13:00 11/29/21 09:55 Fentanyl 25 Mcg/Hr Patch 72hr TD 1 applic Q3D YOSSI Administration Furosemide 20 mg 12/01/21 20:00 12/01/21 22:25 Furosemide 20 Mg/2 Ml Inj IV 12/03/21 23:59 20 mg QDAY YOSSI Administration Gabapentin 100 mg 12/01/21 10:00 12/01/21 10:41 Gabapentin 100 Mg Cap PO 100 mg QDAY YOSSI Administration Hydrophilic Ointment 1 applic 11/06/21 04:02 Lip Therapy Vaseline TP Q2HR PRN Dry Lips NORepinephrine/NS 8 MG-250 ML 8 mg in 250 mls @ 3.75 mls/hr 11/29/21 00:00 11/30/21 08:17 Norepinephrine/Ns 8 Mg-250 Ml (Double Conc) IV 0 mcg/min TITRATE YOSSI 0 mls/hr Titration Protocol 2 MCG/MIN Insulin Human Lispro 0 unit 11/06/21 12:00 12/02/21 07:14 Insulin Lispro 100 Unit/Ml SUB-Q Not Given Q6HR [facility] Protocol Lansoprazole 30 mg 11/24/21 22:00 12/01/21 22:25 Lansoprazole 30 Mg Solutab FEEDTUBE 30 mg BID YOSSI Administration Levothyroxine Sodium 125 mcg 11/05/21 07:00 12/02/21 05:13 Levothyroxine 125 Mcg Tab PO 125 mcg DAILY@0600 [facility] Administration Magnesium Hydroxide 30 ml 11/04/21 02:03 Magnesium Hydroxide (Mom) Oral Liqd Udc PO Q4H PRN Constipation Metoprolol Tartrate 12.5 mg 11/21/21 10:00 12/01/21 22:26 Metoprolol Tartrate 25 Mg Tab PO 12.5 mg BID [facility] Administration Multi-Ingred Cream/Lotion/Oil/Oint 1 applic 11/06/21 04:02 Mineral Oil/Petrolatum, White Ophth Oint 3.5 Gm OU Q4HR PRN Dry Eye(s) Nitroglycerin 0.4 mg 11/30/21 11:36 Nitroglycerin 0.4 Mg Tab Subl SL .Q5MIN PRN Chest Pain Ondansetron HCl 4 mg 11/04/21 02:03 11/05/21 15:48 Ondansetron 4 Mg/2 Ml Inj IV 4 mg Q8H PRN Administration Nausea And Vomiting Polyethylene Glycol 17 gm 12/02/21 10:00 Polyethylene Glycol 3350 17 Gm Powder PO QDAY [facility] Pravastatin Sodium 20 mg 11/18/21 22:00 11/30/21 21:47 Pravastatin 20 Mg Tab PO 20 mg QHS [facility] Administration Quetiapine Fumarate 50 mg 12/01/21 22:00 12/01/21 22:27 Quetiapine 25 Mg Tab PO 50 mg QHS YOSSI Administration Senna 17.6 mg 11/08/21 22:00 12/01/21 22:26 Sennosides Oral Liqd 8.8 Mg/5 Ml Oral Liqd PO 17.6 mg Q12HR YOSSI Administration Simple Syrup 15 ml 11/08/21 11:09 Simple Syrup 15 Ml FEEDTUBE PRN PRN Hypoglycemia Simple Syrup 30 ml 11/08/21 11:09 Simple Syrup 15 Ml FEEDTUBE PRN PRN Hypoglycemia Sodium Bicarbonate 325 mg 11/08/21 11:09 Sodium Bicarbonate 325 Mg Tab FEEDTUBE PRN PRN For Clogged Feeding Tube Sodium Chloride 10 ml 11/04/21 10:00 12/01/21 22:28 Sodium Chloride 0.9% 10 Ml Flush Syringe IV 10 ml BID YOSSI Administration Sodium Chloride 10 ml 11/04/21 02:03 Sodium Chloride 0.9% 10 Ml Flush Syringe IV PRN PRN LINE FLUSH Sodium Chloride 10 ml 11/10/21 09:57 11/17/21 20:47 Sodium Chloride 0.9% 50 Ml Ivpb IV 10 ml PRN PRN Administration FLUSH Sucralfate 1 gm 11/18/21 16:30 12/02/21 08:30 Sucralfate 1 Gm/10 Ml Oral Liqd PO 1 gm ACHS YOSSI Administration Nutrition/Malnutrition Assess - Dietary Evaluation Nutrition/Malnutrition Findings: Nutrition Notes Start: 11/04/21 17:16 Freq: Status: Active Protocol: Document 12/01/21 18:39 ISABELL (Rec: 12/01/21 19:19 ISABELL [id number]) Nutrition Notes Initial or Follow up Reassessment Current Diagnosis Decubitus(Pressure Ulcer), Diabetes,Hypertension, Respiratory Failure Other Pertinent Diagnosis Bilateral Pneumonia and Pleural Effusion, R- Pneumothorax, CHF-EF, GI Bleed . Current Diet TF-Vital AF 1.2 @ 40 ml/hr ( since 11/30) Labs/Tests 12/01: Na 136, BUN 24, Glu 117 , Ca 7.5, Mg 1.6. Pertinent Medications 12/01: Levothyroxine, others nutritionally unremarkable. Height 5 ft Weight 62.4 kg [place] Body Weight (kg) 45.45 BMI 26.9 Weight change and time frame No body weight change reported . Weight Status Overweight Subjective/Other Information RD consult for routine F/U on TF assessment. Glucerna switched to Vital AF due to out of stock situation. PEG tube placed on 11/26, well tolerated. Pt still on Mechanical Ventilation. Pt has missing teerth, according to Physical Assessment History notes. Case Management note 12/01: Patient officially referred to [facility] for aggressive ventilator weaning. Percent of energy/protein needs met: Prescribed Vital AF 1.2 Tamir @ 40 ml/hr provides for energy/ protein needs (1,150 Kcal/72 g ) during LOS, 95% Kcal; 96% AA . Burn Absent Trauma Absent GI Symptoms Other Difficulty In Swallowing,Chewing Food Allergy No Skin Integrity/Comment Lower Extremities Pressure Ulcer. Current % PO Other Minimum of two criteria No #1 Nutrition Diagnosis Inadequate oral intake Diagnosis Progress(for reassessment Continues documentation) Is patient on ventilator? Yes Is Patient Ambulatory and/or Out of Bed No REE-([facility]-confined to bed) 1207.824 Calculation Used for Recommendations [facility] Additional Notes Protein: 1.2-2 g/Kg; 75-125 g/ day. Fluids: 1 ml/Kcal, or as per MD. Nutrition Intervention Nutrition Support: Switch to Vital AF 1.2 Tamir @ 40 ml/hr. Flush: 70 ml water Q 4 hr, or as per MD. Kcal 1,150 Protein (gm) 72 Carbohydrates (gm) 106 Fat (gm) 52 Fluid (mL) 777 Fiber (gm) 5 % RDI: 95% Kcal; 96% AA. Goal #1 Provide at least 75% of energy /protein needs through Enteral Feeding during LOS. Goal #2 Maintain body weight within +/ -3% of admission body weight during LOS. Follow-Up By: 12/08/21 Additional Comments Continue monitoring TF tolerance and BM. <LEAH ALFONSO E - Last Filed: 12/03/21 07:21> Assessment and Plan Assessment and plan: I saw and evaluated the patient. I agree with the findings and the plan of care as documented in the Nurse Practitioner's~note, with the following corrections and additions. Hospitalist Physical - Constitutional Vitals: Temp Pulse Resp BP Pulse Ox 99.2 F 72 17 94/60 100 12/03/21 07:19 12/03/21 06:00 12/03/21 06:00 12/03/21 06:00 12/03/21 06:00 HEART Score - HEART Score Troponin: Troponin T 0.045 ng/mL (0.00-0.029) H 11/29/21 20:15 Results - Labs CBC & Chem 7: 12/03/21 04:00 12/03/21 04:00 Labs: Laboratory Last Values WBC 8.5 K/mm3 (4.5-11.0) 12/03/21 04:00 RBC 2.99 M/mm3 (3.65-5.03) L 12/03/21 04:00 Hgb 7.8 gm/dl (10.1-14.3) L 12/03/21 04:00 Hct 24.6 % (30.3-42.9) L 12/03/21 04:00 MCV 82 fl (79-97) 12/03/21 04:00 MCH 26 pg (28-32) L 12/03/21 04:00 MCHC 32 % (30-34) 12/03/21 04:00 RDW 20.2 % (13.2-15.2) H 12/03/21 04:00 Plt Count 183 K/mm3 (140-440) 12/03/21 04:00 Add Manual Diff Complete 11/16/21 15:25 Total Counted 100 11/16/21 15:25 Seg Neutrophils % Face Cleaner 11/06/21 15:50 Seg Neuts % (Manual) 87.0 % (40.0-70.0) H 11/16/21 15:25 Band Neutrophils % 0 % 11/16/21 15:25 Lymphocytes % (Manual) 8.0 % (13.4-35.0) L 11/16/21 15:25 Reactive Lymphs % (Man) 0 % 11/16/21 15:25 Monocytes % (Manual) 5.0 % (0.0-7.3) 11/16/21 15:25 Eosinophils % (Manual) 0 % (0.0-4.3) 11/16/21 15:25 Basophils % (Manual) 0 % (0.0-1.8) 11/16/21 15:25 Metamyelocytes % 0 % 11/16/21 15:25 Myelocytes % 0 % 11/16/21 15:25 Promyelocytes % 0 % 11/16/21 15:25 Blast Cells % 0 % 11/16/21 15:25 Nucleated RBC % Not Reportable 11/16/21 15:25 Seg Neutrophils # Man 15.0 K/mm3 (1.8-7.7) H 11/16/21 15:25 Band Neutrophils # 0.0 K/mm3 11/16/21 15:25 Lymphocytes # (Manual) 1.4 K/mm3 (1.2-5.4) 11/16/21 15:25 Abs React Lymphs (Man) 0.0 K/mm3 11/16/21 15:25 Monocytes # (Manual) 0.9 K/mm3 (0.0-0.8) H 11/16/21 15:25 Eosinophils # (Manual) 0.0 K/mm3 (0.0-0.4) 11/16/21 15:25 Basophils # (Manual) 0.0 K/mm3 (0.0-0.1) 11/16/21 15:25 Metamyelocytes # 0.0 K/mm3 11/16/21 15:25 Myelocytes # 0.0 K/mm3 11/16/21 15:25 Promyelocytes # 0.0 K/mm3 11/16/21 15:25 Blast Cells # 0.0 K/mm3 11/16/21 15:25 WBC Morphology Not Reportable 11/16/21 15:25 Hypersegmented Neuts Not Reportable 11/16/21 15:25 Hyposegmented Neuts Not Reportable 11/16/21 15:25 Hypogranular Neuts Not Reportable 11/16/21 15:25 Smudge Cells Not Reportable 11/16/21 15:25 Toxic Granulation Not Reportable 11/16/21 15:25 Toxic Vacuolation Not Reportable 11/16/21 15:25 Dohle Bodies Not Reportable 11/16/21 15:25 Pelger-Huet Anomaly Not Reportable 11/16/21 15:25 Irina Rods Not Reportable 11/16/21 15:25 Platelet Estimate Consistent w auto 11/16/21 15:25 Clumped Platelets Rare 11/16/21 15:25 Plt Clumps, EDTA Not Reportable 11/16/21 15:25 Large Platelets Not Reportable 11/16/21 15:25 Giant Platelets Not Reportable 11/16/21 15:25 Platelet Satelliting Not Reportable 11/16/21 15:25 Plt Morphology Comment Not Reportable 11/16/21 15:25 RBC Morphology Not Reportable 11/16/21 15:25 Dimorphic RBCs Not Reportable 11/16/21 15:25 Polychromasia Not Reportable 11/16/21 15:25 Hypochromasia 2+ 11/16/21 15:25 Poikilocytosis Not Reportable 11/16/21 15:25 Anisocytosis 2+ 11/16/21 15:25 Microcytosis Not Reportable 11/16/21 15:25 Macrocytosis Not Reportable 11/16/21 15:25 Spherocytes Not Reportable 11/16/21 15:25 Pappenheimer Bodies Not Reportable 11/16/21 15:25 Sickle Cells Not Reportable 11/16/21 15:25 Target Cells 2+ 11/16/21 15:25 Tear Drop Cells Not Reportable 11/16/21 15:25 Ovalocytes Not Reportable 11/16/21 15:25 Helmet Cells Not Reportable 11/16/21 15:25 [place] Bodies Not Reportable 11/16/21 15:25 [place] Rings Not Reportable 11/16/21 15:25 [place] Cells Not Reportable 11/16/21 15:25 Bite Cells Not Reportable 11/16/21 15:25 Crenated Cell Not Reportable 11/16/21 15:25 Elliptocytes Not Reportable 11/16/21 15:25 Acanthocytes (Spur) Not Reportable 11/16/21 15:25 Rouleaux Not Reportable 11/16/21 15:25 Hemoglobin C Crystals Not Reportable 11/16/21 15:25 Schistocytes Not Reportable 11/16/21 15:25 Malaria parasites Not Reportable 11/16/21 15:25 Godfrey Bodies Not Reportable 11/16/21 15:25 Hem Pathologist Commnt No 11/16/21 15:25 PT 16.9 Sec. (12.2-14.9) H 11/26/21 05:00 INR 1.24 (0.87-1.13) H 11/26/21 05:00 APTT 29.2 Sec. (24.2-36.6) 11/26/21 05:00 D-Dimer 2655.00 ng/mlDDU (0-234) H 11/11/21 04:28 ABG pH 7.449 pH Units (7.350-7.450) 11/21/21 16:00 ABG pCO2 32.1 mm Hg 11/21/21 16:00 ABG pO2 114.2 mm Hg (80.0-90.0) H 11/21/21 16:00 ABG HCO3 21.8 mmol/L (20.0-26.0) 11/21/21 16:00 ABG O2 Saturation 98.3 % (95.0-99.0) 11/21/21 16:00 ABG O2 Content 12.5 (0.0-44) 11/21/21 16:00 ABG Base Excess -1.7 mmol/L (-2.0-3.0) 11/21/21 16:00 ABG Hemoglobin 9.1 gm/dl (12.0-16.0) L 11/21/21 16:00 ABG Carboxyhemoglobin 1.9 % (0.0-5.0) 11/21/21 16:00 ABG Methemoglobin 0.5 % (0.0-1.5) 11/21/21 16:00 Oxyhemoglobin 96.0 % (95.0-99.0) 11/21/21 16:00 FiO2 30 % 11/21/21 16:00 Sodium 136 mmol/L (137-145) L 12/03/21 04:00 Potassium 3.6 mmol/L (3.6-5.0) 12/03/21 04:00 Chloride 99.5 mmol/L (98-107) 12/03/21 04:00 Carbon Dioxide 26 mmol/L (22-30) 12/03/21 04:00 Anion Gap 14 mmol/L 12/03/21 04:00 BUN 27 mg/dL (7-17) H 12/03/21 04:00 Creatinine 0.6 mg/dL (0.6-1.2) 12/03/21 04:00 Estimated GFR > 60 ml/min 12/03/21 04:00 BUN/Creatinine Ratio 45 % 12/03/21 04:00 Glucose 133 mg/dL (65-100) H 12/03/21 04:00 POC Glucose 129 mg/dL (70-105) H 12/03/21 06:30 Lactic Acid 3.70 mmol/L (0.7-2.0) H* 11/03/21 22:32 Calcium 7.5 mg/dL (8.4-10.2) L 12/03/21 04:00 Phosphorus 3.10 mg/dL (2.5-4.5) 12/02/21 04:20 Magnesium 2.00 mg/dL (1.7-2.3) 12/02/21 04:20 Ferritin 52.6 ng/mL (10.0-200.0) 11/05/21 06:11 Total Bilirubin 0.50 mg/dL (0.1-1.2) 11/17/21 05:56 Direct Bilirubin < 0.2 mg/dL (0-0.2) 11/11/21 04:28 Indirect Bilirubin 0.1 mg/dL 11/11/21 04:28 AST 36 units/L (5-40) 11/17/21 05:56 ALT 47 units/L (7-56) 11/17/21 05:56 Alkaline Phosphatase 107 units/L (35-129) 11/17/21 05:56 Ammonia 42.0 umol/L (25-60) 11/10/21 14:08 Lactate Dehydrogenase 187 units/L (91-180) H 11/05/21 06:11 Troponin T 0.045 ng/mL (0.00-0.029) H 11/29/21 20:15 C-Reactive Protein 22.20 mg/dL (0.00-1.30) H 11/05/21 06:11 NT-Pro-B Natriuret Pep 7895 pg/mL (0-900) H 11/03/21 22:32 Total Protein 5.1 g/dL (6.3-8.2) L 11/17/21 05:56 Albumin 2.2 g/dL (3.9-5) L 11/17/21 05:56 Albumin/Globulin Ratio 0.8 % 11/17/21 05:56 Triglycerides 59 mg/dL (2-149) 11/29/21 20:15 Cholesterol 74 mg/dL (50-199) 11/29/21 20:15 LDL Cholesterol Direct 25 mg/dL (50-130) L 11/29/21 20:15 HDL Cholesterol 41 mg/dL (40-59) 11/29/21 20:15 Cholesterol/HDL Ratio 1.80 % 11/29/21 20:15 Vitamin B12 1823 pg/mL (211-911) H 11/10/21 14:08 TSH 1.510 mlU/mL (0.270-4.200) 11/10/21 14:08 Urine Color Yellow (Yellow) 11/11/21 09:00 Urine Turbidity Slightly-cloudy (Clear) 11/11/21 09:00 Urine pH 5.0 (5.0-7.0) 11/11/21 09:00 Ur Specific [place] 1.009 (1.003-1.030) 11/11/21 09:00 Urine Protein <15 mg/dl mg/dL (Negative) 11/11/21 09:00 Urine Glucose (UA) Neg mg/dL (Negative) 11/11/21 09:00 Urine Ketones Neg mg/dL (Negative) 11/11/21 09:00 Urine Blood Mod (Negative) 11/11/21 09:00 Urine Nitrite Neg (Negative) 11/11/21 09:00 Urine Bilirubin Neg (Negative) 11/11/21 09:00 Urine Urobilinogen < 2.0 mg/dL (<2.0) 11/11/21 09:00 Ur Leukocyte Esterase Neg (Negative) 11/11/21 09:00 Urine WBC (Auto) < 1.0 /HPF (0.0-6.0) 11/11/21 09:00 Urine RBC (Auto) < 1.0 /HPF (0.0-6.0) 11/11/21 09:00 Coronavirus (PCR) Negative (Negative) 11/10/21 08:30 Blood Type O POSITIVE 11/18/21 10:45 Antibody Screen Negative 11/18/21 10:45 Crossmatch See Detail 11/18/21 10:45 Gamble/IV: Voiding Method Indwelling Catheter Active Medications - Current Medications Current Medications: Generic Name Dose Route Start Last Admin Trade Name Freq PRN Reason Stop Dose Admin Acetaminophen 650 mg 11/04/21 02:03 11/23/21 16:26 Acetaminophen 325 Mg Tab PO 650 mg Q6H PRN Administration Pain MILD(1-3)/Fever >100.5/RODRIGUEZ Hydrocodone Bitart/Acetaminophen 1 each 11/21/21 10:00 12/02/21 21:15 Hydrocodone/Acetaminophen 10-325mg Tab FEEDTUBE 1 each TID YOSSI Administration Lipase/Protease/Amylase 1 each 11/08/21 11:09 Lipase 10,500/Protease 25,000/Amylase 43,750 (Units) Dr Lema FEEDTUBE PRN PRN For Clogged Feeding Tube Buspirone HCl 7.5 mg 11/17/21 22:00 12/02/21 21:18 Buspirone 5 Mg Tab PO 7.5 mg BID YOSSI Administration Dextrose 0 ml 11/10/21 10:52 11/21/21 16:27 Dextrose 10% *Hypoglycemia IV 50 ml PRN PRN Administration Hypoglycemia Fentanyl 1 applic 11/17/21 13:00 12/02/21 11:43 Fentanyl 25 Mcg/Hr Patch 72hr TD 1 applic Q3D YOSSI Administration Furosemide 20 mg 12/01/21 20:00 12/02/21 11:45 Furosemide 20 Mg/2 Ml Inj IV 12/03/21 23:59 20 mg QDAY YOSSI Administration Gabapentin 100 mg 12/01/21 10:00 12/02/21 11:45 Gabapentin 100 Mg Cap PO 100 mg QDAY YOSSI Administration Hydrophilic Ointment 1 applic 11/06/21 04:02 Lip Therapy Vaseline TP Q2HR PRN Dry Lips NORepinephrine/NS 8 MG-250 ML 8 mg in 250 mls @ 3.75 mls/hr 11/29/21 00:00 12/03/21 06:30 Norepinephrine/Ns 8 Mg-250 Ml (Double Conc) IV 4 mcg/min TITRATE YOSSI 7.5 mls/hr Titration Protocol 2 MCG/MIN Insulin Human Lispro 0 unit 11/06/21 12:00 12/03/21 06:32 Insulin Lispro 100 Unit/Ml SUB-Q Not Given Q6HR YOSSI Protocol Lansoprazole 30 mg 11/24/21 22:00 12/02/21 21:15 Lansoprazole 30 Mg Solutab FEEDTUBE 30 mg BID YOSSI Administration Levothyroxine Sodium 125 mcg 11/05/21 07:00 12/03/21 06:32 Levothyroxine 125 Mcg Tab PO 125 mcg DAILY@0600 YOSSI Administration Magnesium Hydroxide 30 ml 11/04/21 02:03 Magnesium Hydroxide (Mom) Oral Liqd Udc PO Q4H PRN Constipation Metoprolol Tartrate 12.5 mg 11/21/21 10:00 12/02/21 21:15 Metoprolol Tartrate 25 Mg Tab PO 12.5 mg BID YOSSI Administration Multi-Ingred Cream/Lotion/Oil/Oint 1 applic 11/06/21 04:02 Mineral Oil/Petrolatum, White Ophth Oint 3.5 Gm OU Q4HR PRN Dry Eye(s) Nitroglycerin 0.4 mg 11/30/21 11:36 Nitroglycerin 0.4 Mg Tab Subl SL .Q5MIN PRN Chest Pain Ondansetron HCl 4 mg 11/04/21 02:03 11/05/21 15:48 Ondansetron 4 Mg/2 Ml Inj IV 4 mg Q8H PRN Administration Nausea And Vomiting Polyethylene Glycol 17 gm 12/02/21 10:00 12/02/21 11:44 Polyethylene Glycol 3350 17 Gm Powder PO 17 gm QDAY YOSSI Administration Pravastatin Sodium 20 mg 11/18/21 22:00 12/02/21 21:16 Pravastatin 20 Mg Tab PO 20 mg QHS YOSSI Administration Quetiapine Fumarate 50 mg 12/01/21 22:00 12/02/21 21:16 Quetiapine 25 Mg Tab PO 50 mg QHS YOSSI Administration Senna 17.6 mg 11/08/21 22:00 12/02/21 21:15 Sennosides Oral Liqd 8.8 Mg/5 Ml Oral Liqd PO 17.6 mg Q12HR YOSSI Administration Simple Syrup 15 ml 11/08/21 11:09 Simple Syrup 15 Ml FEEDTUBE PRN PRN Hypoglycemia Simple Syrup 30 ml 11/08/21 11:09 Simple Syrup 15 Ml FEEDTUBE PRN PRN Hypoglycemia Sodium Bicarbonate 325 mg 11/08/21 11:09 Sodium Bicarbonate 325 Mg Tab FEEDTUBE PRN PRN For Clogged Feeding Tube Sodium Chloride 10 ml 11/04/21 10:00 12/02/21 21:17 Sodium Chloride 0.9% 10 Ml Flush Syringe IV 10 ml BID YOSSI Administration Sodium Chloride 10 ml 11/04/21 02:03 Sodium Chloride 0.9% 10 Ml Flush Syringe IV PRN PRN LINE FLUSH Sodium Chloride 10 ml 11/10/21 09:57 11/17/21 20:47 Sodium Chloride 0.9% 50 Ml Ivpb IV 10 ml PRN PRN Administration FLUSH Sucralfate 1 gm 11/18/21 16:30 12/02/21 21:15 Sucralfate 1 Gm/10 Ml Oral Liqd PO 1 gm ACHS YOSSI Administration Nutrition/Malnutrition Assess - Dietary Evaluation Nutrition/Malnutrition Findings: Nutrition Notes Start: 11/04/21 17:16 Freq: Status: Active Protocol: Document 12/01/21 18:39 ISABELL (Rec: 12/01/21 19:19 ISABELL [id number]) Nutrition Notes Initial or Follow up Reassessment Current Diagnosis Decubitus(Pressure Ulcer), Diabetes,Hypertension, Respiratory Failure Other Pertinent Diagnosis Bilateral Pneumonia and Pleural Effusion, R- Pneumothorax, CHF-EF, GI Bleed . Current Diet TF-Vital AF 1.2 @ 40 ml/hr ( since 11/30) Labs/Tests 12/01: Na 136, BUN 24, Glu 117 , Ca 7.5, Mg 1.6. Pertinent Medications 12/01: Levothyroxine, others nutritionally unremarkable. Height 5 ft Weight 62.4 kg [place] Body Weight (kg) 45.45 BMI 26.9 Weight change and time frame No body weight change reported . Weight Status Overweight Subjective/Other Information RD consult for routine F/U on TF assessment. Glucerna switched to Vital AF due to out of stock situation. PEG tube placed on 11/26, well tolerated. Pt still on Mechanical Ventilation. Pt has missing teerth, according to Physical Assessment History notes. Case Management note 12/01: Patient officially referred to [facility] for aggressive ventilator weaning. Percent of energy/protein needs met: Prescribed Vital AF 1.2 Tamir @ 40 ml/hr provides for energy/ protein needs (1,150 Kcal/72 g ) during LOS, 95% Kcal; 96% AA . Burn Absent Trauma Absent GI Symptoms Other Difficulty In Swallowing,Chewing Food Allergy No Skin Integrity/Comment Lower Extremities Pressure Ulcer. Current % PO Other Minimum of two criteria No #1 Nutrition Diagnosis Inadequate oral intake Diagnosis Progress(for reassessment Continues documentation) Is patient on ventilator? Yes Is Patient Ambulatory and/or Out of Bed No REE-([facility]-confined to bed) 1207.825 Calculation Used for Recommendations [facility] Additional Notes Protein: 1.2-2 g/Kg; 75-125 g/ day. Fluids: 1 ml/Kcal, or as per MD. Nutrition Intervention Nutrition Support: Switch to Vital AF 1.2 Tamir @ 40 ml/hr. Flush: 70 ml water Q 4 hr, or as per MD. Kcal 1,150 Protein (gm) 72 Carbohydrates (gm) 106 Fat (gm) 52 Fluid (mL) 777 Fiber (gm) 5 % RDI: 95% Kcal; 96% AA. Goal #1 Provide at least 75% of energy /protein needs through Enteral Feeding during LOS. Goal #2 Maintain body weight within +/ -3% of admission body weight during LOS. Follow-Up By: 12/08/21 Additional Comments Continue monitoring TF tolerance and BM.
[2021-12-02] MEDS: busPIRone 5 MG TAB PO SCH ×2 (11:43→21:18)
[2021-12-02] MEDS: fentaNYL 25 MCG/HR PATCH 72HR TD SCH (11:43)
[2021-12-02] MEDS: METOPROLOL TARTRATE 25 MG TAB PO SCH ×2 (11:44→21:15)
[2021-12-02] MEDS: POLYETHYLENE GLYCOL 3350 17 GM POWDER PO SCH (11:44)
[2021-12-02] MEDS: GABAPENTIN 100 MG CAP PO SCH (11:45)
[2021-12-02] MEDS: SENNOSIDES ORAL LIQD 8.8 MG/5 ML ORAL LIQD PO SCH ×2 (11:45→21:15)
[2021-12-02] MEDS: FUROSEMIDE 20 MG/2 ML INJ IV SCH (11:45)
[2021-12-02] MEDS: LANSOPRAZOLE 30 MG SOLUTAB FEEDTUBE SCH ×2 (11:45→21:15)
--- NOTE | 2021-12-02 16:46 | Progress Note ---
Assessment and Plan Severe Sepsis POA vs septic shock- 11/03/2021 blood culture: 2 sets positive for GPC Acute respiratory failure with hypoxia, s/p trach on MVS Acute microcytic anemia Bilateral pneumonia Left pleural effusion Cardiomyopathy EF 30-35% Moderate pulmonary HTN RVSP 49 Acute DVT s/p IVC Anemia Daily SBTs as tolerated. Conservative fluid management as tolerated by hemodynamics and renal function Intermittently requires Vasopressor at low dose, if this persists will add low dose midodrine to therapy to maintain SBP>65 Monitro hemoglobin and transfuse as clinically indicated to keep HgB>7g/dL Continue to optimize enteric nutritional support Maintain sleep-wake cycle, PT/OT, increase activity Discharge planning- possible LTACH - continue to titrate supplemental oxygen to keep SPO2 88-90% - VAP bundle addressed, aspiration precautions, HOB >40 - continue bronchodilators with pulmonary hygiene per RT - continue avoid nephrotoxins, renally dose all medications - Accuchecks with glycemic control per SSI (While critically ill target blood glucose of 140-180 mg/dL; avoid hypoglycemia) - continue to avoid benzodiazepines, reduce the possibility of delirium -trend temperature curve, trend WCC, continue to monitor off antibiotics - Maintenance of sleep-wake cycle, avoid delirium -Stress ulcer prophylaxis (Lansoprazole) -VTE prophyalxis- s/p IVC filter. No anticoagulation 11/18 EGD- Large cratered ulcer in the posterior duodenal bulb about 2 cm in diameter.Visible vessel present. Mild active oozing from the ulcer bed. A total of 3 injections were performed around the ulcer for a total of 2.5 cc of dilute epinephrine and hemostasis was obtained. -mobility, off loading and frequent turning to prevent pressure ulcer -continue with enteric nutritional support via PEG, at goal rate - Continue to monitor hemodynamics closely - continue other care per attending / other consultants COVID SPECIFIC INTERVENTIONS - Negative CONDITION: FAIR PROGNOSIS: GUARDED CODE STATUS: FULL CODE The high probability of a clinically significant, sudden or life-threatening deterioration of the [respiratory, cardiovascular and hematologic] system(s) required my full and direct attention, intervention and personal management. The aggregate critical care time was [33] minutes without overlap. Time includes spent on; [x] Data Review and interpretation [x] Patient assessment and monitoring of vital signs [x] Documentation [x] Medication orders and management Subjective Date of service: 12/02/21 Principal diagnosis: Septic shock; AHRF; Anemia; Pneumonia; L. pleural effusion; HFrEF; Pulm HTN Interval history: Follow up for acute hypoxemic resp failure s/p tracheostomy to MVS ; Septic and cardiogenic shock; severe anemia; Patient seen and examined. Vitals, labs, medications, chart and imaging reviewed. Discussed with respiratory and nursing care staff. Currently on PSV, no fevers overnight, no diarrhea, no vomiting. No acute overnight events reported. Not on any vasopressor support Objective Vital Signs - 12hr 12/02/21 12/02/21 12/02/21 05:00 06:00 07:00 Temperature Pulse Rate 73 72 69 Respiratory 14 13 14 Rate Blood Pressure 100/40 88/34 94/36 O2 Sat by Pulse 97 96 96 Oximetry O2 Sat by Pulse Oximetry [ Assessment] 12/02/21 12/02/21 12/02/21 07:47 07:49 08:00 Temperature 98.5 F Pulse Rate 68 81 Respiratory 16 Rate Blood Pressure 94/37 94/37 O2 Sat by Pulse 97 100 Oximetry O2 Sat by Pulse 97 Oximetry [ Assessment] 12/02/21 12/02/21 12/02/21 08:29 09:00 10:00 Temperature Pulse Rate 77 Respiratory 18 14 Rate Blood Pressure 110/46 111/48 O2 Sat by Pulse 96 96 Oximetry O2 Sat by Pulse Oximetry [ Assessment] 12/02/21 12/02/21 12/02/21 11:00 11:54 12:00 Temperature 98.2 F Pulse Rate 94 H 85 Respiratory 16 Rate Blood Pressure 112/47 164/122 116/46 O2 Sat by Pulse 98 99 100 Oximetry O2 Sat by Pulse Oximetry [ Assessment] 12/02/21 12/02/21 12/02/21 12:43 13:00 14:00 Temperature Pulse Rate 70 70 Respiratory 14 17 15 Rate Blood Pressure 99/40 101/38 O2 Sat by Pulse 97 95 Oximetry O2 Sat by Pulse Oximetry [ Assessment] 12/02/21 12/02/21 12/02/21 14:58 15:00 15:09 Temperature Pulse Rate 73 80 Respiratory 14 18 Rate Blood Pressure 104/41 119/47 O2 Sat by Pulse 99 100 Oximetry O2 Sat by Pulse 100 Oximetry [ Assessment] 12/02/21 16:00 Temperature Pulse Rate 71 Respiratory 14 Rate Blood Pressure 95/45 O2 Sat by Pulse 97 Oximetry O2 Sat by Pulse Oximetry [ Assessment] Constitutional: no acute distress, other (trach to MVS, frail elderly woman with mildly increased respiratory effort at rest) Eyes: non-icteric ENT: oropharynx moist, oropharyngeal exudate pre (clear frothy), other (+ M idline tracheostomy) Neck: supple, no lymphadenopathy, no JVD Effort: mildly labored Ascultation: Bilateral: diminished breath sounds, rhonchi, other (Right chest tube) Percussion: Bilateral: not dull Cardiovascular: regular rate and rhythm, other (S1,S2) Gastrointestinal: normoactive bowel sounds, soft, non-tender, non-distended (protuberant) Integumentary: normal Extremities: no cyanosis, pink and warm, pulses normal, edema (upper etremities) Neurologic: non-focal exam (grossly), pupils equal and round, motor strength normal and Psychiatric: affect normal, anxious CBC and BMP: 12/08/21 04:00 12/08/21 04:00 ABG, PT/INR, D-dimer: ABG ABG pH 7.449 pH Units (7.350-7.450) 11/21/21 16:00 ABG pCO2 32.1 mm Hg 11/21/21 16:00 ABG pO2 114.2 mm Hg (80.0-90.0) H 11/21/21 16:00 ABG O2 Saturation 98.3 % (95.0-99.0) 11/21/21 16:00 PT/INR, D-dimer PT 16.9 Sec. (12.2-14.9) H 11/26/21 05:00 INR 1.24 (0.87-1.13) H 11/26/21 05:00 D-Dimer 2655.00 ng/mlDDU (0-234) H 11/11/21 04:28 Abnormal lab findings: Abnormal Labs 11/03/21 11/03/21 11/03/21 22:32 22:32 22:32 WBC 29.3 H RBC 2.93 L Hgb 6.1 L Hct 21.9 L MCV 75 L MCH 21 L MCHC 28 L RDW 19.7 H Plt Count Seg Neuts % (Manual) 97.0 H Lymphocytes % (Manual) 3.0 L Seg Neutrophils # Man 28.4 H Lymphocytes # (Manual) 0.9 L Monocytes # (Manual) PT 18.6 H INR 1.40 H D-Dimer ABG pH ABG pO2 ABG HCO3 ABG O2 Saturation ABG Base Excess ABG Hemoglobin Oxyhemoglobin Sodium Potassium Chloride Carbon Dioxide 20 L BUN 33 H Glucose 119 H POC Glucose Lactic Acid Calcium 8.3 L Phosphorus Magnesium AST ALT Alkaline Phosphatase Lactate Dehydrogenase Troponin T 0.035 H C-Reactive Protein NT-Pro-B Natriuret Pep Total Protein Albumin LDL Cholesterol Direct 34 L Vitamin B12 Crossmatch 11/03/21 11/03/21 11/03/21 22:32 22:32 23:57 WBC RBC Hgb Hct MCV MCH MCHC RDW Plt Count Seg Neuts % (Manual) Lymphocytes % (Manual) Seg Neutrophils # Man Lymphocytes # (Manual) Monocytes # (Manual) PT INR D-Dimer ABG pH ABG pO2 ABG HCO3 ABG O2 Saturation ABG Base Excess ABG Hemoglobin Oxyhemoglobin Sodium Potassium Chloride Carbon Dioxide BUN Glucose POC Glucose Lactic Acid 3.70 H* Calcium Phosphorus Magnesium AST ALT Alkaline Phosphatase 139 H Lactate Dehydrogenase Troponin T C-Reactive Protein NT-Pro-B Natriuret Pep 7895 H Total Protein Albumin 3.5 L LDL Cholesterol Direct Vitamin B12 Crossmatch See Detail 11/04/21 11/04/21 11/05/21 00:59 13:58 00:51 WBC 27.9 H RBC 3.28 L Hgb 7.3 L Hct 25.5 L MCV 78 L MCH 22 L MCHC 29 L RDW 19.1 H Plt Count Seg Neuts % (Manual) 96.0 H Lymphocytes % (Manual) 2.0 L Seg Neutrophils # Man 26.8 H Lymphocytes # (Manual) 0.6 L Monocytes # (Manual) PT INR D-Dimer ABG pH ABG pO2 ABG HCO3 ABG O2 Saturation ABG Base Excess ABG Hemoglobin Oxyhemoglobin Sodium Potassium Chloride Carbon Dioxide BUN Glucose POC Glucose Lactic Acid Calcium Phosphorus Magnesium AST ALT Alkaline Phosphatase Lactate Dehydrogenase Troponin T 0.051 H D 0.032 H D C-Reactive Protein NT-Pro-B Natriuret Pep Total Protein Albumin LDL Cholesterol Direct Vitamin B12 Crossmatch 11/05/21 11/05/21 11/05/21 06:11 06:11 06:11 WBC 31.8 H RBC 3.57 L Hgb 8.0 L Hct 27.7 L MCV 78 L MCH 22 L MCHC 29 L RDW 19.2 H Plt Count Seg Neuts % (Manual) 91.0 H Lymphocytes % (Manual) 4.5 L Seg Neutrophils # Man 28.9 H Lymphocytes # (Manual) Monocytes # (Manual) 1.1 H PT INR D-Dimer 1494.53 H ABG pH ABG pO2 ABG HCO3 ABG O2 Saturation ABG Base Excess ABG Hemoglobin Oxyhemoglobin Sodium Potassium Chloride Carbon Dioxide 19 L BUN 42 H Glucose 115 H POC Glucose Lactic Acid Calcium Phosphorus Magnesium AST 43 H ALT Alkaline Phosphatase Lactate Dehydrogenase 187 H Troponin T C-Reactive Protein 22.20 H NT-Pro-B Natriuret Pep Total Protein 6.0 L Albumin 3.2 L LDL Cholesterol Direct Vitamin B12 Crossmatch 11/05/21 11/05/21 11/06/21 06:11 12:15 00:30 WBC RBC Hgb Hct MCV MCH MCHC RDW Plt Count Seg Neuts % (Manual) Lymphocytes % (Manual) Seg Neutrophils # Man Lymphocytes # (Manual) Monocytes # (Manual) PT INR D-Dimer ABG pH ABG pO2 ABG HCO3 ABG O2 Saturation ABG Base Excess ABG Hemoglobin Oxyhemoglobin Sodium Potassium Chloride Carbon Dioxide BUN Glucose POC Glucose 113 H 69 L Lactic Acid Calcium Phosphorus Magnesium AST ALT Alkaline Phosphatase Lactate Dehydrogenase Troponin T 0.033 H C-Reactive Protein NT-Pro-B Natriuret Pep Total Protein Albumin LDL Cholesterol Direct Vitamin B12 Crossmatch 11/06/21 11/06/21 11/06/21 05:50 15:50 15:50 WBC 25.5 H RBC 3.62 L Hgb 8.0 L Hct 27.5 L MCV 76 L MCH 22 L MCHC 29 L RDW 19.6 H Plt Count Seg Neuts % (Manual) 92.0 H Lymphocytes % (Manual) 5.0 L Seg Neutrophils # Man 23.5 H Lymphocytes # (Manual) Monocytes # (Manual) PT INR D-Dimer ABG pH 7.305 L ABG pO2 ABG HCO3 15.8 L ABG O2 Saturation ABG Base Excess -9.6 L ABG Hemoglobin 8.6 L Oxyhemoglobin 94.6 L Sodium Potassium Chloride 113.9 H Carbon Dioxide 17 L BUN 56 H Glucose 114 H POC Glucose Lactic Acid Calcium 7.9 L Phosphorus Magnesium AST 1410 H ALT 934 H Alkaline Phosphatase 142 H Lactate Dehydrogenase Troponin T C-Reactive Protein NT-Pro-B Natriuret Pep Total Protein 5.0 L Albumin 2.6 L LDL Cholesterol Direct Vitamin B12 Crossmatch 11/07/21 11/07/21 11/07/21 03:30 04:50 08:07 WBC RBC Hgb Hct MCV MCH MCHC RDW Plt Count Seg Neuts % (Manual) Lymphocytes % (Manual) Seg Neutrophils # Man Lymphocytes # (Manual) Monocytes # (Manual) PT INR D-Dimer ABG pH ABG pO2 296.9 H ABG HCO3 18.1 L ABG O2 Saturation 99.5 H ABG Base Excess -5.9 L ABG Hemoglobin 7.6 L Oxyhemoglobin Sodium Potassium Chloride Carbon Dioxide BUN Glucose POC Glucose 106 H 108 H Lactic Acid Calcium Phosphorus Magnesium AST ALT Alkaline Phosphatase Lactate Dehydrogenase Troponin T C-Reactive Protein NT-Pro-B Natriuret Pep Total Protein Albumin LDL Cholesterol Direct Vitamin B12 Crossmatch 11/08/21 11/08/21 11/08/21 03:10 18:05 23:43 WBC RBC Hgb Hct MCV MCH MCHC RDW Plt Count Seg Neuts % (Manual) Lymphocytes % (Manual) Seg Neutrophils # Man Lymphocytes # (Manual) Monocytes # (Manual) PT INR D-Dimer ABG pH ABG pO2 127.4 H ABG HCO3 ABG O2 Saturation ABG Base Excess -3.4 L ABG Hemoglobin 7.4 L Oxyhemoglobin Sodium Potassium Chloride Carbon Dioxide BUN Glucose POC Glucose 113 H 141 H Lactic Acid Calcium Phosphorus Magnesium AST ALT Alkaline Phosphatase Lactate Dehydrogenase Troponin T C-Reactive Protein NT-Pro-B Natriuret Pep Total Protein Albumin LDL Cholesterol Direct Vitamin B12 Crossmatch 11/08/21 11/08/21 11/09/21 Unknown Unknown 02:00 WBC 14.5 H RBC 3.35 L Hgb 7.5 L 8.1 L Hct 25.4 L 27.6 L MCV 76 L 76 L MCH 23 L 22 L MCHC RDW 19.9 H 19.9 H Plt Count Seg Neuts % (Manual) Lymphocytes % (Manual) Seg Neutrophils # Man Lymphocytes # (Manual) Monocytes # (Manual) PT INR D-Dimer ABG pH ABG pO2 ABG HCO3 ABG O2 Saturation ABG Base Excess ABG Hemoglobin Oxyhemoglobin Sodium 154 H D Potassium 3.3 L Chloride 120.7 H Carbon Dioxide 20 L BUN 38 H Glucose POC Glucose Lactic Acid Calcium 8.3 L Phosphorus Magnesium AST ALT Alkaline Phosphatase Lactate Dehydrogenase Troponin T C-Reactive Protein NT-Pro-B Natriuret Pep Total Protein Albumin LDL Cholesterol Direct Vitamin B12 Crossmatch 11/09/21 11/09/21 11/09/21 02:00 02:31 05:12 WBC RBC Hgb Hct MCV MCH MCHC RDW Plt Count Seg Neuts % (Manual) Lymphocytes % (Manual) Seg Neutrophils # Man Lymphocytes # (Manual) Monocytes # (Manual) PT INR D-Dimer ABG pH 7.479 H ABG pO2 121.3 H ABG HCO3 ABG O2 Saturation ABG Base Excess ABG Hemoglobin 7.3 L Oxyhemoglobin Sodium Potassium Chloride 112.5 H Carbon Dioxide BUN 33 H Glucose 161 H POC Glucose 135 H Lactic Acid Calcium Phosphorus Magnesium AST 251 H ALT 481 H Alkaline Phosphatase Lactate Dehydrogenase Troponin T C-Reactive Protein NT-Pro-B Natriuret Pep Total Protein 5.0 L Albumin 2.8 L LDL Cholesterol Direct Vitamin B12 Crossmatch 11/09/21 11/09/21 11/09/21 11:33 16:32 23:28 WBC RBC Hgb Hct MCV MCH MCHC RDW Plt Count Seg Neuts % (Manual) Lymphocytes % (Manual) Seg Neutrophils # Man Lymphocytes # (Manual) Monocytes # (Manual) PT INR D-Dimer ABG pH ABG pO2 ABG HCO3 ABG O2 Saturation ABG Base Excess ABG Hemoglobin Oxyhemoglobin Sodium Potassium Chloride Carbon Dioxide BUN Glucose POC Glucose 132 H 133 H 143 H Lactic Acid Calcium Phosphorus Magnesium AST ALT Alkaline Phosphatase Lactate Dehydrogenase Troponin T C-Reactive Protein NT-Pro-B Natriuret Pep Total Protein Albumin LDL Cholesterol Direct Vitamin B12 Crossmatch 11/10/21 11/10/21 11/10/21 04:00 04:00 05:35 WBC 16.0 H RBC 3.61 L Hgb 8.0 L Hct 27.1 L MCV 75 L MCH 22 L MCHC RDW 20.4 H Plt Count Seg Neuts % (Manual) Lymphocytes % (Manual) Seg Neutrophils # Man Lymphocytes # (Manual) Monocytes # (Manual) PT INR D-Dimer ABG pH ABG pO2 ABG HCO3 ABG O2 Saturation ABG Base Excess ABG Hemoglobin Oxyhemoglobin Sodium 149 H Potassium Chloride 114.1 H Carbon Dioxide BUN 31 H Glucose 148 H POC Glucose 132 H Lactic Acid Calcium 8.2 L Phosphorus Magnesium AST ALT Alkaline Phosphatase Lactate Dehydrogenase Troponin T C-Reactive Protein NT-Pro-B Natriuret Pep Total Protein Albumin LDL Cholesterol Direct Vitamin B12 Crossmatch 11/10/21 11/10/21 11/10/21 11:31 14:08 15:35 WBC RBC Hgb Hct MCV MCH MCHC RDW Plt Count Seg Neuts % (Manual) Lymphocytes % (Manual) Seg Neutrophils # Man Lymphocytes # (Manual) Monocytes # (Manual) PT INR D-Dimer ABG pH ABG pO2 126.6 H ABG HCO3 ABG O2 Saturation ABG Base Excess ABG Hemoglobin 7.4 L Oxyhemoglobin Sodium Potassium Chloride Carbon Dioxide BUN Glucose POC Glucose 147 H Lactic Acid Calcium Phosphorus Magnesium AST ALT Alkaline Phosphatase Lactate Dehydrogenase Troponin T C-Reactive Protein NT-Pro-B Natriuret Pep Total Protein Albumin LDL Cholesterol Direct Vitamin B12 1823 H Crossmatch 11/10/21 11/11/21 11/11/21 17:53 00:55 04:28 WBC RBC Hgb Hct MCV MCH MCHC RDW Plt Count Seg Neuts % (Manual) Lymphocytes % (Manual) Seg Neutrophils # Man Lymphocytes # (Manual) Monocytes # (Manual) PT INR D-Dimer ABG pH ABG pO2 ABG HCO3 ABG O2 Saturation ABG Base Excess ABG Hemoglobin Oxyhemoglobin Sodium 149 H Potassium Chloride 112.2 H Carbon Dioxide BUN 34 H Glucose 148 H POC Glucose 140 H 145 H Lactic Acid Calcium 7.9 L Phosphorus Magnesium AST 53 H ALT 203 H Alkaline Phosphatase Lactate Dehydrogenase Troponin T C-Reactive Protein NT-Pro-B Natriuret Pep Total Protein 4.9 L Albumin 2.6 L LDL Cholesterol Direct Vitamin B12 Crossmatch 11/11/21 11/11/21 11/11/21 04:28 04:28 05:28 WBC 20.9 H RBC 3.47 L Hgb 7.5 L Hct 26.0 L MCV 75 L MCH 22 L MCHC 29 L RDW 21.6 H Plt Count 132 L Seg Neuts % (Manual) Lymphocytes % (Manual) Seg Neutrophils # Man Lymphocytes # (Manual) Monocytes # (Manual) PT INR D-Dimer 2655.00 H ABG pH ABG pO2 ABG HCO3 ABG O2 Saturation ABG Base Excess ABG Hemoglobin Oxyhemoglobin Sodium Potassium Chloride Carbon Dioxide BUN Glucose POC Glucose 154 H Lactic Acid Calcium Phosphorus Magnesium AST ALT Alkaline Phosphatase Lactate Dehydrogenase Troponin T C-Reactive Protein NT-Pro-B Natriuret Pep Total Protein Albumin LDL Cholesterol Direct Vitamin B12 Crossmatch 11/11/21 11/11/21 11/12/21 12:38 18:13 00:14 WBC RBC Hgb Hct MCV MCH MCHC RDW Plt Count Seg Neuts % (Manual) Lymphocytes % (Manual) Seg Neutrophils # Man Lymphocytes # (Manual) Monocytes # (Manual) PT INR D-Dimer ABG pH ABG pO2 ABG HCO3 ABG O2 Saturation ABG Base Excess ABG Hemoglobin Oxyhemoglobin Sodium Potassium Chloride Carbon Dioxide BUN Glucose POC Glucose 137 H 108 H 137 H Lactic Acid Calcium Phosphorus Magnesium AST ALT Alkaline Phosphatase Lactate Dehydrogenase Troponin T C-Reactive Protein NT-Pro-B Natriuret Pep Total Protein Albumin LDL Cholesterol Direct Vitamin B12 Crossmatch 11/12/21 11/12/21 11/12/21 05:40 06:24 11:12 WBC RBC Hgb Hct MCV MCH MCHC RDW Plt Count Seg Neuts % (Manual) Lymphocytes % (Manual) Seg Neutrophils # Man Lymphocytes # (Manual) Monocytes # (Manual) PT INR D-Dimer ABG pH 7.586 H ABG pO2 150.6 H ABG HCO3 27.2 H ABG O2 Saturation 99.1 H ABG Base Excess 5.2 H ABG Hemoglobin 7.5 L Oxyhemoglobin Sodium Potassium Chloride Carbon Dioxide BUN Glucose POC Glucose 132 H 140 H Lactic Acid Calcium Phosphorus Magnesium AST ALT Alkaline Phosphatase Lactate Dehydrogenase Troponin T C-Reactive Protein NT-Pro-B Natriuret Pep Total Protein Albumin LDL Cholesterol Direct Vitamin B12 Crossmatch 11/12/21 11/12/21 11/12/21 14:50 14:50 17:13 WBC 19.8 H RBC 3.27 L Hgb 7.1 L Hct 24.5 L MCV 75 L MCH 22 L MCHC 29 L RDW 22.3 H Plt Count Seg Neuts % (Manual) Lymphocytes % (Manual) Seg Neutrophils # Man Lymphocytes # (Manual) Monocytes # (Manual) PT INR D-Dimer ABG pH ABG pO2 ABG HCO3 ABG O2 Saturation ABG Base Excess ABG Hemoglobin Oxyhemoglobin Sodium 150 H Potassium 3.3 L Chloride 112.0 H Carbon Dioxide BUN 40 H Glucose 151 H POC Glucose 121 H Lactic Acid Calcium 7.4 L Phosphorus 1.70 L Magnesium 1.40 L AST ALT Alkaline Phosphatase Lactate Dehydrogenase Troponin T C-Reactive Protein NT-Pro-B Natriuret Pep Total Protein Albumin LDL Cholesterol Direct Vitamin B12 Crossmatch 11/12/21 11/13/21 11/13/21 23:19 05:34 06:30 WBC RBC Hgb Hct MCV MCH MCHC RDW Plt Count Seg Neuts % (Manual) Lymphocytes % (Manual) Seg Neutrophils # Man Lymphocytes # (Manual) Monocytes # (Manual) PT INR D-Dimer ABG pH ABG pO2 ABG HCO3 ABG O2 Saturation ABG Base Excess ABG Hemoglobin Oxyhemoglobin Sodium 149 H Potassium Chloride 60.0 L Carbon Dioxide BUN 40 H Glucose 146 H POC Glucose 113 H 132 H Lactic Acid Calcium 7.3 L Phosphorus Magnesium 2.40 H AST ALT 72 H Alkaline Phosphatase Lactate Dehydrogenase Troponin T C-Reactive Protein NT-Pro-B Natriuret Pep Total Protein 5.2 L Albumin 2.2 L LDL Cholesterol Direct Vitamin B12 Crossmatch 11/13/21 11/13/21 11/13/21 06:30 08:30 11:19 WBC 21.2 H RBC 3.12 L Hgb 6.8 L Hct 23.2 L MCV 74 L MCH 22 L MCHC 29 L RDW 22.2 H Plt Count 135 L Seg Neuts % (Manual) Lymphocytes % (Manual) Seg Neutrophils # Man Lymphocytes # (Manual) Monocytes # (Manual) PT INR D-Dimer ABG pH ABG pO2 ABG HCO3 ABG O2 Saturation ABG Base Excess ABG Hemoglobin Oxyhemoglobin Sodium Potassium Chloride Carbon Dioxide BUN Glucose POC Glucose 136 H Lactic Acid Calcium Phosphorus Magnesium AST ALT Alkaline Phosphatase Lactate Dehydrogenase Troponin T C-Reactive Protein NT-Pro-B Natriuret Pep Total Protein Albumin LDL Cholesterol Direct Vitamin B12 Crossmatch See Detail 11/13/21 11/14/21 11/14/21 18:21 00:01 04:46 WBC 20.0 H RBC 3.41 L Hgb 7.9 L Hct 26.8 L MCV MCH 23 L MCHC 29 L RDW 24.0 H Plt Count Seg Neuts % (Manual) Lymphocytes % (Manual) Seg Neutrophils # Man Lymphocytes # (Manual) Monocytes # (Manual) PT INR D-Dimer ABG pH ABG pO2 ABG HCO3 ABG O2 Saturation ABG Base Excess ABG Hemoglobin Oxyhemoglobin Sodium Potassium Chloride Carbon Dioxide BUN Glucose POC Glucose 149 H 141 H Lactic Acid Calcium Phosphorus Magnesium AST ALT Alkaline Phosphatase Lactate Dehydrogenase Troponin T C-Reactive Protein NT-Pro-B Natriuret Pep Total Protein Albumin LDL Cholesterol Direct Vitamin B12 Crossmatch 11/14/21 11/14/21 11/14/21 04:46 05:10 11:10 WBC RBC Hgb Hct MCV MCH MCHC RDW Plt Count Seg Neuts % (Manual) Lymphocytes % (Manual) Seg Neutrophils # Man Lymphocytes # (Manual) Monocytes # (Manual) PT INR D-Dimer ABG pH ABG pO2 ABG HCO3 ABG O2 Saturation ABG Base Excess ABG Hemoglobin Oxyhemoglobin Sodium 148 H Potassium Chloride 113.1 H Carbon Dioxide BUN 43 H Glucose 140 H POC Glucose 132 H 133 H Lactic Acid Calcium 7.5 L Phosphorus Magnesium AST ALT Alkaline Phosphatase Lactate Dehydrogenase Troponin T C-Reactive Protein NT-Pro-B Natriuret Pep Total Protein Albumin LDL Cholesterol Direct Vitamin B12 Crossmatch 11/14/21 11/14/21 11/14/21 16:14 17:48 23:23 WBC RBC Hgb Hct MCV MCH MCHC RDW Plt Count Seg Neuts % (Manual) Lymphocytes % (Manual) Seg Neutrophils # Man Lymphocytes # (Manual) Monocytes # (Manual) PT INR D-Dimer ABG pH ABG pO2 ABG HCO3 28.0 H ABG O2 Saturation ABG Base Excess 3.1 H ABG Hemoglobin 5.8 L Oxyhemoglobin 94.8 L Sodium Potassium Chloride Carbon Dioxide BUN Glucose POC Glucose 130 H 136 H Lactic Acid Calcium Phosphorus Magnesium AST ALT Alkaline Phosphatase Lactate Dehydrogenase Troponin T C-Reactive Protein NT-Pro-B Natriuret Pep Total Protein Albumin LDL Cholesterol Direct Vitamin B12 Crossmatch 11/15/21 11/15/21 11/15/21 05:20 05:50 05:50 WBC 19.9 H RBC 3.50 L Hgb 8.2 L Hct 27.9 L MCV MCH 23 L MCHC 29 L RDW 24.9 H Plt Count Seg Neuts % (Manual) Lymphocytes % (Manual) Seg Neutrophils # Man Lymphocytes # (Manual) Monocytes # (Manual) PT INR D-Dimer ABG pH ABG pO2 ABG HCO3 ABG O2 Saturation ABG Base Excess ABG Hemoglobin Oxyhemoglobin Sodium 149 H Potassium Chloride 112.0 H Carbon Dioxide BUN 48 H Glucose 152 H POC Glucose 137 H Lactic Acid Calcium 7.9 L Phosphorus Magnesium AST ALT Alkaline Phosphatase Lactate Dehydrogenase Troponin T C-Reactive Protein NT-Pro-B Natriuret Pep Total Protein Albumin LDL Cholesterol Direct Vitamin B12 Crossmatch 11/15/21 11/15/21 11/15/21 12:12 17:07 23:24 WBC RBC Hgb Hct MCV MCH MCHC RDW Plt Count Seg Neuts % (Manual) Lymphocytes % (Manual) Seg Neutrophils # Man Lymphocytes # (Manual) Monocytes # (Manual) PT INR D-Dimer ABG pH ABG pO2 ABG HCO3 ABG O2 Saturation ABG Base Excess ABG Hemoglobin Oxyhemoglobin Sodium Potassium Chloride Carbon Dioxide BUN Glucose POC Glucose 114 H 135 H 123 H Lactic Acid Calcium Phosphorus Magnesium AST ALT Alkaline Phosphatase Lactate Dehydrogenase Troponin T C-Reactive Protein NT-Pro-B Natriuret Pep Total Protein Albumin LDL Cholesterol Direct Vitamin B12 Crossmatch 11/16/21 11/16/21 11/16/21 05:21 10:00 10:00 WBC 21.7 H RBC 2.57 L Hgb 6.0 L Hct 20.2 L D MCV MCH 24 L MCHC RDW 26.3 H Plt Count Seg Neuts % (Manual) Lymphocytes % (Manual) Seg Neutrophils # Man Lymphocytes # (Manual) Monocytes # (Manual) PT INR D-Dimer ABG pH ABG pO2 ABG HCO3 ABG O2 Saturation ABG Base Excess ABG Hemoglobin Oxyhemoglobin Sodium 153 H Potassium Chloride 114.9 H Carbon Dioxide BUN 74 H Glucose 155 H POC Glucose 127 H Lactic Acid Calcium 8.1 L Phosphorus Magnesium AST ALT Alkaline Phosphatase Lactate Dehydrogenase Troponin T C-Reactive Protein NT-Pro-B Natriuret Pep Total Protein Albumin LDL Cholesterol Direct Vitamin B12 Crossmatch 11/16/21 11/16/21 11/16/21 11:34 14:00 15:25 WBC 17.2 H RBC 2.08 L Hgb 4.7 L* Hct 16.2 L* MCV 78 L MCH 23 L MCHC 29 L RDW 26.0 H Plt Count Seg Neuts % (Manual) 87.0 H Lymphocytes % (Manual) 8.0 L Seg Neutrophils # Man 15.0 H Lymphocytes # (Manual) Monocytes # (Manual) 0.9 H PT INR D-Dimer ABG pH ABG pO2 ABG HCO3 ABG O2 Saturation ABG Base Excess ABG Hemoglobin Oxyhemoglobin Sodium Potassium Chloride Carbon Dioxide BUN Glucose POC Glucose 131 H Lactic Acid Calcium Phosphorus Magnesium AST ALT Alkaline Phosphatase Lactate Dehydrogenase Troponin T C-Reactive Protein NT-Pro-B Natriuret Pep Total Protein Albumin LDL Cholesterol Direct Vitamin B12 Crossmatch See Detail 11/16/21 11/16/21 11/16/21 15:25 17:21 22:43 WBC RBC Hgb 8.6 L D Hct 27.7 L D MCV MCH MCHC RDW Plt Count Seg Neuts % (Manual) Lymphocytes % (Manual) Seg Neutrophils # Man Lymphocytes # (Manual) Monocytes # (Manual) PT INR D-Dimer ABG pH ABG pO2 ABG HCO3 ABG O2 Saturation ABG Base Excess ABG Hemoglobin Oxyhemoglobin Sodium 148 H Potassium Chloride 113.2 H Carbon Dioxide BUN 84 H Glucose 164 H POC Glucose 124 H Lactic Acid Calcium 7.6 L Phosphorus Magnesium AST ALT Alkaline Phosphatase Lactate Dehydrogenase Troponin T C-Reactive Protein NT-Pro-B Natriuret Pep Total Protein Albumin LDL Cholesterol Direct Vitamin B12 Crossmatch 11/16/21 11/17/21 11/17/21 23:07 05:33 05:56 WBC 25.1 H RBC 3.47 L Hgb 8.7 L Hct 28.5 L MCV MCH 25 L MCHC RDW 22.3 H Plt Count Seg Neuts % (Manual) Lymphocytes % (Manual) Seg Neutrophils # Man Lymphocytes # (Manual) Monocytes # (Manual) PT INR D-Dimer ABG pH ABG pO2 ABG HCO3 ABG O2 Saturation ABG Base Excess ABG Hemoglobin Oxyhemoglobin Sodium Potassium Chloride Carbon Dioxide BUN Glucose POC Glucose 128 H 133 H Lactic Acid Calcium Phosphorus Magnesium AST ALT Alkaline Phosphatase Lactate Dehydrogenase Troponin T C-Reactive Protein NT-Pro-B Natriuret Pep Total Protein Albumin LDL Cholesterol Direct Vitamin B12 Crossmatch 11/17/21 11/17/21 11/17/21 05:56 11:00 11:55 WBC RBC Hgb 8.3 L Hct 26.9 L MCV MCH MCHC RDW Plt Count Seg Neuts % (Manual) Lymphocytes % (Manual) Seg Neutrophils # Man Lymphocytes # (Manual) Monocytes # (Manual) PT INR D-Dimer ABG pH ABG pO2 ABG HCO3 ABG O2 Saturation ABG Base Excess ABG Hemoglobin Oxyhemoglobin Sodium 151 H Potassium Chloride 113.6 H Carbon Dioxide BUN 85 H Glucose 132 H POC Glucose 121 H Lactic Acid Calcium 7.8 L Phosphorus Magnesium AST ALT Alkaline Phosphatase Lactate Dehydrogenase Troponin T C-Reactive Protein NT-Pro-B Natriuret Pep Total Protein 5.1 L Albumin 2.2 L LDL Cholesterol Direct Vitamin B12 Crossmatch 11/17/21 11/17/21 11/18/21 18:04 18:55 00:26 WBC RBC Hgb 7.5 L 7.1 L Hct 24.8 L 23.6 L MCV MCH MCHC RDW Plt Count Seg Neuts % (Manual) Lymphocytes % (Manual) Seg Neutrophils # Man Lymphocytes # (Manual) Monocytes # (Manual) PT INR D-Dimer ABG pH ABG pO2 ABG HCO3 ABG O2 Saturation ABG Base Excess ABG Hemoglobin Oxyhemoglobin Sodium Potassium Chloride Carbon Dioxide BUN Glucose POC Glucose 144 H Lactic Acid Calcium Phosphorus Magnesium AST ALT Alkaline Phosphatase Lactate Dehydrogenase Troponin T C-Reactive Protein NT-Pro-B Natriuret Pep Total Protein Albumin LDL Cholesterol Direct Vitamin B12 Crossmatch 11/18/21 11/18/21 11/18/21 00:43 05:10 05:10 WBC 12.5 H RBC 2.39 L Hgb 6.1 L Hct 20.2 L MCV MCH 25 L MCHC RDW 23.2 H Plt Count Seg Neuts % (Manual) Lymphocytes % (Manual) Seg Neutrophils # Man Lymphocytes # (Manual) Monocytes # (Manual) PT INR D-Dimer ABG pH ABG pO2 ABG HCO3 ABG O2 Saturation ABG Base Excess ABG Hemoglobin Oxyhemoglobin Sodium 131 L D Potassium 2.9 L* D Chloride 97.8 L Carbon Dioxide BUN 58 H Glucose 665 H* POC Glucose 139 H Lactic Acid Calcium 7.0 L Phosphorus 2.20 L D Magnesium 1.50 L AST ALT Alkaline Phosphatase Lactate Dehydrogenase Troponin T C-Reactive Protein NT-Pro-B Natriuret Pep Total Protein Albumin LDL Cholesterol Direct Vitamin B12 Crossmatch 11/18/21 11/18/21 11/18/21 05:23 07:10 10:45 WBC RBC Hgb Hct MCV MCH MCHC RDW Plt Count Seg Neuts % (Manual) Lymphocytes % (Manual) Seg Neutrophils # Man Lymphocytes # (Manual) Monocytes # (Manual) PT INR D-Dimer ABG pH ABG pO2 ABG HCO3 ABG O2 Saturation ABG Base Excess ABG Hemoglobin Oxyhemoglobin Sodium 148 H D Potassium 3.1 L Chloride 111.9 H Carbon Dioxide BUN 63 H Glucose 141 H POC Glucose 124 H Lactic Acid Calcium 8.1 L D Phosphorus Magnesium AST ALT Alkaline Phosphatase Lactate Dehydrogenase Troponin T C-Reactive Protein NT-Pro-B Natriuret Pep Total Protein Albumin LDL Cholesterol Direct Vitamin B12 Crossmatch See Detail 11/18/21 11/19/21 11/19/21 11:57 00:19 04:55 WBC RBC 3.35 L Hgb 9.0 L 8.9 L Hct 28.3 L D 28.1 L MCV MCH 27 L MCHC RDW 20.3 H Plt Count Seg Neuts % (Manual) Lymphocytes % (Manual) Seg Neutrophils # Man Lymphocytes # (Manual) Monocytes # (Manual) PT INR D-Dimer ABG pH ABG pO2 ABG HCO3 ABG O2 Saturation ABG Base Excess ABG Hemoglobin Oxyhemoglobin Sodium Potassium Chloride Carbon Dioxide BUN Glucose POC Glucose 119 H Lactic Acid Calcium Phosphorus Magnesium AST ALT Alkaline Phosphatase Lactate Dehydrogenase Troponin T C-Reactive Protein NT-Pro-B Natriuret Pep Total Protein Albumin LDL Cholesterol Direct Vitamin B12 Crossmatch 11/19/21 11/19/21 11/20/21 04:55 05:42 00:55 WBC RBC Hgb 9.0 L Hct 28.6 L MCV MCH MCHC RDW Plt Count Seg Neuts % (Manual) Lymphocytes % (Manual) Seg Neutrophils # Man Lymphocytes # (Manual) Monocytes # (Manual) PT INR D-Dimer ABG pH ABG pO2 ABG HCO3 ABG O2 Saturation ABG Base Excess ABG Hemoglobin Oxyhemoglobin Sodium Potassium 3.5 L Chloride 108.6 H Carbon Dioxide BUN 47 H Glucose 207 H POC Glucose 63 L Lactic Acid Calcium 7.1 L Phosphorus Magnesium AST ALT Alkaline Phosphatase Lactate Dehydrogenase Troponin T C-Reactive Protein NT-Pro-B Natriuret Pep Total Protein Albumin LDL Cholesterol Direct Vitamin B12 Crossmatch 11/20/21 11/20/21 11/20/21 05:40 05:40 Unknown WBC RBC 3.40 L Hgb 9.1 L Hct 28.8 L MCV MCH 27 L MCHC RDW 20.7 H Plt Count Seg Neuts % (Manual) Lymphocytes % (Manual) Seg Neutrophils # Man Lymphocytes # (Manual) Monocytes # (Manual) PT INR D-Dimer ABG pH ABG pO2 ABG HCO3 ABG O2 Saturation ABG Base Excess -2.7 L ABG Hemoglobin 9.5 L Oxyhemoglobin 94.3 L Sodium Potassium 3.5 L Chloride 108.9 H Carbon Dioxide BUN 37 H Glucose 117 H POC Glucose Lactic Acid Calcium 7.5 L Phosphorus Magnesium AST ALT Alkaline Phosphatase Lactate Dehydrogenase Troponin T C-Reactive Protein NT-Pro-B Natriuret Pep Total Protein Albumin LDL Cholesterol Direct Vitamin B12 Crossmatch 11/21/21 11/21/21 11/21/21 04:30 04:30 16:00 WBC RBC 3.25 L Hgb 8.6 L Hct 28.1 L MCV MCH 26 L MCHC RDW 20.7 H Plt Count Seg Neuts % (Manual) Lymphocytes % (Manual) Seg Neutrophils # Man Lymphocytes # (Manual) Monocytes # (Manual) PT INR D-Dimer ABG pH ABG pO2 114.2 H ABG HCO3 ABG O2 Saturation ABG Base Excess ABG Hemoglobin 9.1 L Oxyhemoglobin Sodium 134 L Potassium Chloride Carbon Dioxide 20 L BUN 34 H Glucose POC Glucose Lactic Acid Calcium 7.1 L Phosphorus Magnesium AST ALT Alkaline Phosphatase Lactate Dehydrogenase Troponin T C-Reactive Protein NT-Pro-B Natriuret Pep Total Protein Albumin LDL Cholesterol Direct Vitamin B12 Crossmatch 11/22/21 11/22/21 11/22/21 07:07 07:07 23:54 WBC RBC 3.30 L Hgb 9.0 L Hct 28.5 L MCV MCH 27 L MCHC RDW 21.0 H Plt Count Seg Neuts % (Manual) Lymphocytes % (Manual) Seg Neutrophils # Man Lymphocytes # (Manual) Monocytes # (Manual) PT INR D-Dimer ABG pH ABG pO2 ABG HCO3 ABG O2 Saturation ABG Base Excess ABG Hemoglobin Oxyhemoglobin Sodium Potassium Chloride Carbon Dioxide BUN 32 H Glucose 106 H POC Glucose 110 H Lactic Acid Calcium 7.5 L Phosphorus Magnesium AST ALT Alkaline Phosphatase Lactate Dehydrogenase Troponin T C-Reactive Protein NT-Pro-B Natriuret Pep Total Protein Albumin LDL Cholesterol Direct Vitamin B12 Crossmatch 11/23/21 11/23/21 11/23/21 04:38 04:38 06:01 WBC RBC 3.23 L Hgb 8.8 L Hct 28.0 L MCV MCH 27 L MCHC RDW 21.3 H Plt Count Seg Neuts % (Manual) Lymphocytes % (Manual) Seg Neutrophils # Man Lymphocytes # (Manual) Monocytes # (Manual) PT INR D-Dimer ABG pH ABG pO2 ABG HCO3 ABG O2 Saturation ABG Base Excess ABG Hemoglobin Oxyhemoglobin Sodium 136 L Potassium Chloride Carbon Dioxide 20 L BUN 32 H Glucose 109 H POC Glucose 115 H Lactic Acid Calcium 7.7 L Phosphorus Magnesium AST ALT Alkaline Phosphatase Lactate Dehydrogenase Troponin T C-Reactive Protein NT-Pro-B Natriuret Pep Total Protein Albumin LDL Cholesterol Direct Vitamin B12 Crossmatch 11/23/21 11/24/21 11/24/21 11:40 00:03 04:13 WBC RBC 3.18 L Hgb 8.5 L Hct 27.5 L MCV MCH 27 L MCHC RDW 21.6 H Plt Count Seg Neuts % (Manual) Lymphocytes % (Manual) Seg Neutrophils # Man Lymphocytes # (Manual) Monocytes # (Manual) PT INR D-Dimer ABG pH ABG pO2 ABG HCO3 ABG O2 Saturation ABG Base Excess ABG Hemoglobin Oxyhemoglobin Sodium Potassium Chloride Carbon Dioxide BUN Glucose POC Glucose 117 H 111 H Lactic Acid Calcium Phosphorus Magnesium AST ALT Alkaline Phosphatase Lactate Dehydrogenase Troponin T C-Reactive Protein NT-Pro-B Natriuret Pep Total Protein Albumin LDL Cholesterol Direct Vitamin B12 Crossmatch 11/24/21 11/24/21 11/24/21 04:13 05:30 11:10 WBC RBC Hgb Hct MCV MCH MCHC RDW Plt Count Seg Neuts % (Manual) Lymphocytes % (Manual) Seg Neutrophils # Man Lymphocytes # (Manual) Monocytes # (Manual) PT INR D-Dimer ABG pH ABG pO2 ABG HCO3 ABG O2 Saturation ABG Base Excess ABG Hemoglobin Oxyhemoglobin Sodium Potassium Chloride Carbon Dioxide BUN 31 H Glucose 101 H POC Glucose 115 H 107 H Lactic Acid Calcium 7.7 L Phosphorus Magnesium AST ALT Alkaline Phosphatase Lactate Dehydrogenase Troponin T C-Reactive Protein NT-Pro-B Natriuret Pep Total Protein Albumin LDL Cholesterol Direct Vitamin B12 Crossmatch 11/24/21 11/24/21 11/25/21 16:34 17:57 05:12 WBC RBC 3.11 L Hgb 8.2 L Hct 26.6 L MCV MCH 26 L MCHC RDW 21.3 H Plt Count Seg Neuts % (Manual) Lymphocytes % (Manual) Seg Neutrophils # Man Lymphocytes # (Manual) Monocytes # (Manual) PT INR D-Dimer ABG pH ABG pO2 ABG HCO3 ABG O2 Saturation ABG Base Excess ABG Hemoglobin Oxyhemoglobin Sodium Potassium Chloride Carbon Dioxide BUN Glucose POC Glucose 115 H 110 H Lactic Acid Calcium Phosphorus Magnesium AST ALT Alkaline Phosphatase Lactate Dehydrogenase Troponin T C-Reactive Protein NT-Pro-B Natriuret Pep Total Protein Albumin LDL Cholesterol Direct Vitamin B12 Crossmatch 11/25/21 11/25/21 11/26/21 05:12 11:20 05:00 WBC RBC 3.30 L Hgb 8.8 L Hct 28.2 L MCV MCH 27 L MCHC RDW 20.7 H Plt Count Seg Neuts % (Manual) Lymphocytes % (Manual) Seg Neutrophils # Man Lymphocytes # (Manual) Monocytes # (Manual) PT INR D-Dimer ABG pH ABG pO2 ABG HCO3 ABG O2 Saturation ABG Base Excess ABG Hemoglobin Oxyhemoglobin Sodium Potassium Chloride Carbon Dioxide BUN 32 H Glucose 118 H POC Glucose 118 H Lactic Acid Calcium 8.2 L Phosphorus Magnesium AST ALT Alkaline Phosphatase Lactate Dehydrogenase Troponin T C-Reactive Protein NT-Pro-B Natriuret Pep Total Protein Albumin LDL Cholesterol Direct Vitamin B12 Crossmatch 11/26/21 11/26/21 11/26/21 05:00 05:00 05:44 WBC RBC Hgb Hct MCV MCH MCHC RDW Plt Count Seg Neuts % (Manual) Lymphocytes % (Manual) Seg Neutrophils # Man Lymphocytes # (Manual) Monocytes # (Manual) PT 16.9 H INR 1.24 H D-Dimer ABG pH ABG pO2 ABG HCO3 ABG O2 Saturation ABG Base Excess ABG Hemoglobin Oxyhemoglobin Sodium Potassium Chloride Carbon Dioxide BUN 31 H Glucose 104 H POC Glucose 110 H Lactic Acid Calcium 7.9 L Phosphorus Magnesium AST ALT Alkaline Phosphatase Lactate Dehydrogenase Troponin T C-Reactive Protein NT-Pro-B Natriuret Pep Total Protein Albumin LDL Cholesterol Direct Vitamin B12 Crossmatch 11/26/21 11/27/21 11/27/21 23:55 07:40 07:40 WBC RBC 3.18 L Hgb 8.5 L Hct 27.0 L MCV MCH 27 L MCHC RDW 21.2 H Plt Count Seg Neuts % (Manual) Lymphocytes % (Manual) Seg Neutrophils # Man Lymphocytes # (Manual) Monocytes # (Manual) PT INR D-Dimer ABG pH ABG pO2 ABG HCO3 ABG O2 Saturation ABG Base Excess ABG Hemoglobin Oxyhemoglobin Sodium Potassium Chloride Carbon Dioxide BUN 27 H Glucose 112 H POC Glucose 63 L Lactic Acid Calcium 7.6 L Phosphorus Magnesium AST ALT Alkaline Phosphatase Lactate Dehydrogenase Troponin T C-Reactive Protein NT-Pro-B Natriuret Pep Total Protein Albumin LDL Cholesterol Direct Vitamin B12 Crossmatch 11/27/21 11/27/21 11/27/21 12:04 13:40 13:40 WBC RBC 3.31 L Hgb 8.7 L Hct 28.0 L MCV MCH 26 L MCHC RDW 20.7 H Plt Count Seg Neuts % (Manual) Lymphocytes % (Manual) Seg Neutrophils # Man Lymphocytes # (Manual) Monocytes # (Manual) PT INR D-Dimer ABG pH ABG pO2 ABG HCO3 ABG O2 Saturation ABG Base Excess ABG Hemoglobin Oxyhemoglobin Sodium 136 L Potassium Chloride Carbon Dioxide BUN 25 H Glucose 127 H POC Glucose 109 H Lactic Acid Calcium 7.6 L Phosphorus Magnesium 1.40 L AST ALT Alkaline Phosphatase Lactate Dehydrogenase Troponin T C-Reactive Protein NT-Pro-B Natriuret Pep Total Protein Albumin LDL Cholesterol Direct Vitamin B12 Crossmatch 11/27/21 11/27/21 11/28/21 17:44 23:33 12:20 WBC RBC Hgb Hct MCV MCH MCHC RDW Plt Count Seg Neuts % (Manual) Lymphocytes % (Manual) Seg Neutrophils # Man Lymphocytes # (Manual) Monocytes # (Manual) PT INR D-Dimer ABG pH ABG pO2 ABG HCO3 ABG O2 Saturation ABG Base Excess ABG Hemoglobin Oxyhemoglobin Sodium Potassium Chloride Carbon Dioxide BUN Glucose POC Glucose 107 H 108 H 114 H Lactic Acid Calcium Phosphorus Magnesium AST ALT Alkaline Phosphatase Lactate Dehydrogenase Troponin T C-Reactive Protein NT-Pro-B Natriuret Pep Total Protein Albumin LDL Cholesterol Direct Vitamin B12 Crossmatch 11/29/21 11/29/21 11/29/21 00:09 03:20 03:20 WBC RBC 3.05 L Hgb 8.2 L Hct 25.8 L MCV MCH 27 L MCHC RDW 20.9 H Plt Count Seg Neuts % (Manual) Lymphocytes % (Manual) Seg Neutrophils # Man Lymphocytes # (Manual) Monocytes # (Manual) PT INR D-Dimer ABG pH ABG pO2 ABG HCO3 ABG O2 Saturation ABG Base Excess ABG Hemoglobin Oxyhemoglobin Sodium 133 L Potassium Chloride Carbon Dioxide BUN 24 H Glucose 137 H POC Glucose 134 H Lactic Acid Calcium 7.4 L Phosphorus Magnesium AST ALT Alkaline Phosphatase Lactate Dehydrogenase Troponin T C-Reactive Protein NT-Pro-B Natriuret Pep Total Protein Albumin LDL Cholesterol Direct Vitamin B12 Crossmatch 11/29/21 11/29/21 11/29/21 05:38 11:39 17:11 WBC RBC Hgb Hct MCV MCH MCHC RDW Plt Count Seg Neuts % (Manual) Lymphocytes % (Manual) Seg Neutrophils # Man Lymphocytes # (Manual) Monocytes # (Manual) PT INR D-Dimer ABG pH ABG pO2 ABG HCO3 ABG O2 Saturation ABG Base Excess ABG Hemoglobin Oxyhemoglobin Sodium Potassium Chloride Carbon Dioxide BUN Glucose POC Glucose 117 H 143 H 124 H Lactic Acid Calcium Phosphorus Magnesium AST ALT Alkaline Phosphatase Lactate Dehydrogenase Troponin T C-Reactive Protein NT-Pro-B Natriuret Pep Total Protein Albumin LDL Cholesterol Direct Vitamin B12 Crossmatch 11/29/21 11/30/21 11/30/21 20:15 05:40 05:40 WBC 12.6 H RBC 3.41 L Hgb 9.1 L Hct 28.9 L MCV MCH 27 L MCHC RDW 20.4 H Plt Count Seg Neuts % (Manual) Lymphocytes % (Manual) Seg Neutrophils # Man Lymphocytes # (Manual) Monocytes # (Manual) PT INR D-Dimer ABG pH ABG pO2 ABG HCO3 ABG O2 Saturation ABG Base Excess ABG Hemoglobin Oxyhemoglobin Sodium Potassium Chloride Carbon Dioxide BUN 24 H Glucose 131 H POC Glucose Lactic Acid Calcium 7.6 L Phosphorus Magnesium AST ALT Alkaline Phosphatase Lactate Dehydrogenase Troponin T 0.045 H C-Reactive Protein NT-Pro-B Natriuret Pep Total Protein Albumin LDL Cholesterol Direct 25 L Vitamin B12 Crossmatch 11/30/21 11/30/21 12/01/21 11:29 16:51 05:00 WBC RBC 2.97 L Hgb 8.0 L Hct 25.0 L MCV MCH 27 L MCHC RDW 20.8 H Plt Count Seg Neuts % (Manual) Lymphocytes % (Manual) Seg Neutrophils # Man Lymphocytes # (Manual) Monocytes # (Manual) PT INR D-Dimer ABG pH ABG pO2 ABG HCO3 ABG O2 Saturation ABG Base Excess ABG Hemoglobin Oxyhemoglobin Sodium Potassium Chloride Carbon Dioxide BUN Glucose POC Glucose 123 H 114 H Lactic Acid Calcium Phosphorus Magnesium AST ALT Alkaline Phosphatase Lactate Dehydrogenase Troponin T C-Reactive Protein NT-Pro-B Natriuret Pep Total Protein Albumin LDL Cholesterol Direct Vitamin B12 Crossmatch 12/01/21 12/01/21 12/01/21 05:00 05:25 11:54 WBC RBC Hgb Hct MCV MCH MCHC RDW Plt Count Seg Neuts % (Manual) Lymphocytes % (Manual) Seg Neutrophils # Man Lymphocytes # (Manual) Monocytes # (Manual) PT INR D-Dimer ABG pH ABG pO2 ABG HCO3 ABG O2 Saturation ABG Base Excess ABG Hemoglobin Oxyhemoglobin Sodium 136 L Potassium Chloride Carbon Dioxide BUN 24 H Glucose 117 H POC Glucose 108 H 107 H Lactic Acid Calcium 7.5 L Phosphorus Magnesium 1.60 L AST ALT Alkaline Phosphatase Lactate Dehydrogenase Troponin T C-Reactive Protein NT-Pro-B Natriuret Pep Total Protein Albumin LDL Cholesterol Direct Vitamin B12 Crossmatch 12/01/21 12/02/21 12/02/21 17:40 00:07 04:20 WBC RBC 2.92 L Hgb 7.7 L Hct 24.3 L MCV MCH 26 L MCHC RDW 20.5 H Plt Count Seg Neuts % (Manual) Lymphocytes % (Manual) Seg Neutrophils # Man Lymphocytes # (Manual) Monocytes # (Manual) PT INR D-Dimer ABG pH ABG pO2 ABG HCO3 ABG O2 Saturation ABG Base Excess ABG Hemoglobin Oxyhemoglobin Sodium Potassium Chloride Carbon Dioxide BUN Glucose POC Glucose 123 H 110 H Lactic Acid Calcium Phosphorus Magnesium AST ALT Alkaline Phosphatase Lactate Dehydrogenase Troponin T C-Reactive Protein NT-Pro-B Natriuret Pep Total Protein Albumin LDL Cholesterol Direct Vitamin B12 Crossmatch 12/02/21 12/02/21 04:20 11:17 WBC RBC Hgb Hct MCV MCH MCHC RDW Plt Count Seg Neuts % (Manual) Lymphocytes % (Manual) Seg Neutrophils # Man Lymphocytes # (Manual) Monocytes # (Manual) PT INR D-Dimer ABG pH ABG pO2 ABG HCO3 ABG O2 Saturation ABG Base Excess ABG Hemoglobin Oxyhemoglobin Sodium 135 L Potassium Chloride Carbon Dioxide BUN 26 H Glucose 121 H POC Glucose 117 H Lactic Acid Calcium 7.4 L Phosphorus Magnesium AST ALT Alkaline Phosphatase Lactate Dehydrogenase Troponin T C-Reactive Protein NT-Pro-B Natriuret Pep Total Protein Albumin LDL Cholesterol Direct Vitamin B12 Crossmatch Chest x-ray: image reviewed Allied health notes reviewed: RT
[2021-12-02] MEDS: QUEtiapine 25 MG TAB PO SCH (21:16)
[2021-12-02] MEDS: PRAVASTATIN 20 MG TAB PO SCH (21:16)
[2021-12-02] MEDS: NORepinephrine/NS 8 MG-250 ML 8 MG/250 ML INFUS..BTL IV SCH (23:28)
[2021-12-03] MEDS: INSULIN LISPRO 100 UNIT/ML SUB-Q SCH ×4 (00:45→18:00)
[2021-12-03 05:08] LABS: Hematocrit 24.6 % (30.3-42.9); Hemoglobin 7.8 gm/dl (10.1-14.3); Mean Corpuscular HGB Conc 32 % (30-34); Mean Corpuscular Volume 82 fl (79-97); Platelet Count 183 K/mm3 (140-440); Red Blood Count 2.99 M/mm3 (3.65-5.03)
[2021-12-03 05:12] LABS: Red Cell Distribution Width 20.2 % (13.2-15.2)
[2021-12-03 06:32] LABS: Blood Urea Nitrogen 27 mg/dL (7-17); Calcium 7.5 mg/dL (8.4-10.2); Hemolysis Index 0
[2021-12-03] MEDS: LEVOTHYROXINE 125 MCG TAB PO SCH (06:32)
[2021-12-03 06:37] LABS: BUN/Creatinine Ratio 45
[2021-12-03] MEDS: SUCRALFATE 1 GM/10 ML ORAL LIQD PO SCH ×4 (08:25→21:33)
[2021-12-03] MEDS: HYDROcodone/ACETAMINOPHEN 10-325MG TAB FEEDTUBE SCH ×3 (08:25→20:48)
[2021-12-03] MEDS: LANSOPRAZOLE 30 MG SOLUTAB FEEDTUBE SCH ×2 (09:22→21:33)
[2021-12-03] MEDS: METOPROLOL TARTRATE 25 MG TAB PO SCH ×2 (09:22→21:34)
[2021-12-03] MEDS: SENNOSIDES ORAL LIQD 8.8 MG/5 ML ORAL LIQD PO SCH ×2 (09:22→21:33)
[2021-12-03] MEDS: POLYETHYLENE GLYCOL 3350 17 GM POWDER PO SCH (09:22)
[2021-12-03] MEDS: busPIRone 5 MG TAB PO SCH ×2 (09:23→21:33)
[2021-12-03] MEDS: GABAPENTIN 100 MG CAP PO SCH (09:30)
[2021-12-03] MEDS: FUROSEMIDE 20 MG/2 ML INJ IV SCH (09:30)
--- NOTE | 2021-12-03 11:48 | Progress Note ---
<LONNIE MAURICE - Last Filed: 12/03/21 18:24> Assessment and Plan Assessment and plan: This is a 81-year-old female with known history of diabetes mellitus, hypertension, PPM, and arthritis admitted for sepsis and acute hypoxia respiratory failure 2/2 bilateral pneumonia requiring intubation and ventilatory support Hospital Course to date: 11/04/2021: Empiric therapy with iv levaquin/vancomycin. COVID PCR pending. Will consult ID. PCCM consulted, will follow recs. Hypotensive this AM, ordered bolus and fluids at 150 cc/hr. May require pressor support if bp does not improve. 11/05/2021: GBS on bcx +, currently on rocephin IV. Currently on bipap due to respiratory distress overnight. Worsening BL opacities on CXR. May be volume overload vs pneumonia. Unfortunately bp too low for lasix at this point. WIll continue levophed and bipap. Once able to tolerate, may do trial of albumin/lasi x. Call attempt made to Niraj, no response. Will try again tomorrow to update. 11/06/2021: Decompensated overnight requiring intubation. CXR shows worsening interstitial infiltrates. Currenlty on dopamine, levophed, vasopressin. PICC line ordered. Advised RN to place gamble for I/O monitoring. Would benefit from diuresis but very volume overloaded. Prognosis guarded 11/08: Off sedation this am, remains unresponsive only grimace to pain. Hold all sedatives agents for now, patient is off pressors this am. Hypernatremia from today's lab- D5W X1bag, and low K repleted, repeat lab in the am. Severe constipation also noted from KUB, BR added. 11/09: Sudden SPO2 drop in the 60s this am. Patient was manually bagged and deep suctioned. Patient is currently stable on the vent, repeat CXR with no significant change. D/w CCM Mucomyst and brochodilator added. Patient mentation is unchanged, continue to hold off on sedative agents. Neurology consulted. 11/10: Acute DVT noted on bilateral lower extremity Doppler ultrasound therefore she was started on Lovenox treatment dose. Failed SBT. Hypernatremia and hyperchloremia noted, free water flush adjusted. 11/11: Patient noted to be febrile with increasing of the cytosis, UA/BC sent and CXR ordered. ID escalated antibiotics to cefepime. CXR demonstrated mucous plug, bedside bronchoscopy was performed and O ETT was changed over bougie from 6 cm to 7.5. Patient was noted to have a pneumothorax postprocedure and chest tube was placed. Family updated by [facility]. Free water flush increased and will add Jaswant supplementation. 11/12: Patient not noted to follow commands, hypernatremia worsen/persist, increasing free water flush, potassium and magnesium and phosphorus repleted. Hemoglobin noted to be 7.1/24.5 from 7.03/12 yesterday. We will continue to trend and monitor. Vent changes per [facility]. Repeat CXR showed no residual pneumo thorax. Consider waterseal tomorrow. Given persistent leukocytosis antibiotics escalated to cefepime per ID. 11/13: Remains on cefepime and vancomycin, vent changes per [facility]. Anemia noted and given 1 unit PRBC. And beta-charleen held in setting of Levophed drip infusing. Remains on fentanyl drip. 11/14: Patient put on CPAP trial by [facility], will continue chest tube until after extubation. Will rest on assist control. CT brain was cancelled by PROFICIO and reordered. 11/15: Patient removed chest tube overnight. Will obtain cxr. remains on low dose levo. CTH completed with no acute findings. RT to place on CPAP. 11/16: Hypernatremia/hyperchloremia noted on the increase of day water flushes. Anemia noted and ordered PRBC. asked RT to place on cpap but not done yet 11/17: Patient remains on the vent, awake and following commands. H&H stable s/p 2units PRBCs. GI on consult, no intervention at this time. Will continue protonix gtt and serial H&H Q6hrs. Keep patient NPO for now, D5w added for hypernatremia and NPO status. Plan for IVC filter placement today by Vascular. 11/18: Patient is s/p IVC filter. H&H continue to trend down, hbg 6.1 this am, 1 unit of PRBCs ordered. Plan for possible EGD today by GI. Keep patient NPO, continue PPI drip and serial H&H Q6hrs. Electrolytes repleted, repeat lab in the am 11/19: S/p EGD- larger duodenal ulcer noted, see operative note. GI recommendat ions noted also noted. H&H stable this am. Keep patient on protonix gtt for now. Will keep patient NPO, continue IVF and serial H&H for now. Electrolytes repleted, repeat labs in the am 2/3: Very agitated and restless this am, fentanyl gtt resumed. Patient remains on protonix gtt, H&H remains stable. Will switch protonix gtt to IV BID, continue carafate and okay to resume meds at this time. Will F/u with GI to see if TF can be resumed. Gamble was reinserted overnight for retention. Electrolytes repleted, repeat in the am. Plan for possible PST today for possible extubation per CCM. 11/21: Patient is now on seroquel and patient's home buspar resumed. Patient more calm this morning, fentanyl gtt is off. H&H remains stable and patient is tolerating TF. Patient had a runs of Vtach/PVCs this am, BB added per Cardio. Continue daily PS and wean trial for possible extubation. 11/22: Back on fentanyl gtt overnight , RASS o to -1, following commands. Patient failed PST this am due to increased work of breathing and low SPO2, ABG pending. Patient is also with worsen pitting edema, lasix is still on hold. Will discuss with cardio and CCM to possibly resume lasix. 11/23: MARIA DEL CARMEN overnight. Patient failed PST again this am. Per CCM plan for possible trach and PEG, hold off on IV lasix for now. General surgery consulted and family is aware of possible Trach and PEG. 11/24: Trach/PEG pending this week, continue SBT/SAT as tolerated. No acute events reported overnight. 11/25: Patient was n.p.o. overnight and will remain n.p.o. tonight for trach/PEG tomorrow morning. She failed to support trial again. KUB obtained due to distended belly. 11/26: Patient scheduled for tracheostomy and PEG tube placement today, has been n.p.o. since midnight. No acute events reported overnight. [facility] ordered rosalinda thicone scheduled. 11/27: No acute events reported overnight, patient received trach/PEG yesterday. Has been on feedings since last night. Still awaiting LTAC placement. 11/28: Patient magnesium repleted, repeat a.m. labs, SBT 11/29: Patient complains of chest pain but ECG obtained which showed no acute findings, ordered troponin. Patient failed CPAP yesterday and was trialed again today. levophed was restarted but will aggressively wean 11/30: Patient failed SBT. Continue supportive care. Started gabapentin today 12/01: MARIA DEL CARMEN overnight. Continue daily PST. Case management to arrange possible placement 12/02: Report of dark stools overnight, patient is hemodynamically stable. H&H stable, patient is on PPI. Will continue to trend H&H. Continue daily PST as tolerated. Awaiting LTAC vs SNF placement. 12/03: Hypotensive overnight, requiring low dose pressors. S/p X3 days of gentle diurese. Will continue to monitor, wean off pressors as tolerated for MAP of 65. Patient Failed PST yesterday, case management to follow up with insurance for possible LTAC placement. Continue daily PST as tolerated. PT eval and treat ordered. Assessment and Plan #Septic Shock POA #Bilateral Pneumonia #Bacteremia - Presented with fevers, leukocytosis, and hypotension - COVID PCR negative - 11/04 Bcult with 3/4 group B strep bacteremia - Repeat Bculture NGTD - 11/04 2D Echo with no evidence of vegetation - ID on consult, appreciate recommendations - Patient completed IV Abx course - F/u on culture data - Trend CBC #Acute Hypoxic Respiratory Failure 11/19 #Bilateral Pleural Effusion #Right Pneumothorax-resolved #Bilateral Pneumonia - COVID PCR negative - CXR shows Bilateral opacities, may be volume overloaded - [facility] consulted, appreciate recommendations - Intubated on 11/06, ETT exchanged on 11/11 - 11/11 Bronchoscopy--Complicated by spontaneous pneumothorax - 11/11 S/p chest tube placement for right pneumothorax, removed by patient on - 11/26 s/p Tracheostomy and PEGtube placement - This am Vent Setting:A/C-25%,6,14,400 - Continue Nebs treatment - Continue daily PST as tolerated - VAP bundle addressed - Aspiration precaution HOB above 30 - ABG and CXR per [facility] - Continue SPO2 monitoring for SPO2 goal above 92% #CHF- EF 30-35% with PPM #Hypotension #Septic Kristian-resolved - SR on the monitor, HR 70-90s - 11/04 Echo-EF 30-35% - Cardiology on consult - Continue beta-charleen - Not on aspirin due to allergy - Statins resumed - Continue blood pressure monitor per protocol - Maintain MAP above 65 #Acute Blood Loss #Acute GI Bleed #Acute Microcytic Anemia - Report of melena &black tarry stools - s/p a total of 5units of PRBCs since admit - H&H remains stable post EGD - GI on consult - 11/18 EGD- Large cratered ulcer in the posterior duodenal bulb about 2 cm in diameter. Visible vessel present. Mild active oozing from the ulcer bed. A total of 3 injections were performed around the ulcer for a total of 2.5 cc of dilute epinephrine and hemostasis was obtained.--> See full report - Continue PPI and Carafate - Patient is tolerating TF - Continue to trend CBC - Transfuse for H&H less than 7 - Hold AC for now #Hyponatremia - FWF decreased - Strict intake and output - Continue to monitor and replace electrolytes as needed - Trend BMP,mag, & phosp #Urinary Retention - Gamble reinserted on 11/19 for retention - Keep gamble for now #Acute DVT in RLE - BLE doppler + Acute DVT in the right external iliac vein, common femoral vein, and superior aspect of femoral vein - Was on Therapeutic Lovenox- held to due GI Bleed - 11/17 s/p IVC filter placement by Vascular Surg #Agitation #Acute Encephalopathy-Resolved - Awake and following commands - Continue Buspar and seroquel - CT head noted - Neurology consulted - PRN analgesia for pain management #Transaminitis/Shock Liver - Probably due to bacteria/spetic shock - Continue to Trend LFTs #Endo: h/o DM and hypothyroidism -Continue home Synthroid -Accu-Cheks every 6 -Avoid hypoglycemia The high probability of a clinically significant, sudden or life threatening deterioration of the [multi] system(s) required my full and direct attention, intervention and personal management. The aggregate critical care time was [60] minutes. This time is in addition to time spent performing reported procedures but includes the following: [x] Data Review and interpretation [x] Patient assessment and monitoring of vital signs [x] Documentation [x] Medication orders and management Disposition Plan: ICU Total Time Spent with Patient (Minutes): 60 History Interval history: Patient seen and examined at the bedside. Remains on the vent. Awake and alert, following simple commands. Failed PST yesterday due to high blood pressure. However, was hypotensive overnight requiring pressors. Patient remains on low dose Levophed gtt this am. Hospitalist Physical - Constitutional Vitals: Temp Pulse Resp BP Pulse Ox 99.2 F 62 17 80/38 100 12/03/21 07:19 12/03/21 11:40 12/03/21 06:00 12/03/21 11:40 12/03/21 11:40 General appearance: Present: no acute distress, other (On the vent) - EENT Eyes: Present: PERRL ENT: hearing intact - Neck Neck: Present: normal ROM - Respiratory Respiratory effort: normal Respiratory: bilateral: diminished - Cardiovascular Rhythm: regular Heart Sounds: Present: S1 & S2 - Extremities Extremities: no ischemia, pulses intact, pulses symmetrical Extremity abnormal: edema - Peripheral Assessment Generalized Edema Type: Non-pitting Edema Degree: 2+ Capillary Refill: < 3 seconds Skin Temperature: Warm Peripheral Pulses: within normal limits - Abdominal General gastrointestinal: soft, non-distended, normal bowel sounds - Integumentary Integumentary: Present: warm, dry - Psychiatric Psychiatric: appropriate mood/affect, cooperative, other (On the vent) - Neurologic Neurologic: moves all extremities, other (On the vent) - Allied Health Allied health notes reviewed: nursing HEART Score - HEART Score Troponin: Troponin T 0.045 ng/mL (0.00-0.029) H 11/29/21 20:15 Results - Labs CBC & Chem 7: 12/03/21 04:00 12/03/21 04:00 Labs: Laboratory Last Values WBC 8.5 K/mm3 (4.5-11.0) 12/03/21 04:00 RBC 2.99 M/mm3 (3.65-5.03) L 12/03/21 04:00 Hgb 7.8 gm/dl (10.1-14.3) L 12/03/21 04:00 Hct 24.6 % (30.3-42.9) L 12/03/21 04:00 MCV 82 fl (79-97) 12/03/21 04:00 MCH 26 pg (28-32) L 12/03/21 04:00 MCHC 32 % (30-34) 12/03/21 04:00 RDW 20.2 % (13.2-15.2) H 12/03/21 04:00 Plt Count 183 K/mm3 (140-440) 12/03/21 04:00 Add Manual Diff Complete 11/16/21 15:25 Total Counted 100 11/16/21 15:25 Seg Neutrophils % Courier Delivery Driver 11/06/21 15:50 Seg Neuts % (Manual) 87.0 % (40.0-70.0) H 11/16/21 15:25 Band Neutrophils % 0 % 11/16/21 15:25 Lymphocytes % (Manual) 8.0 % (13.4-35.0) L 11/16/21 15:25 Reactive Lymphs % (Man) 0 % 11/16/21 15:25 Monocytes % (Manual) 5.0 % (0.0-7.3) 11/16/21 15:25 Eosinophils % (Manual) 0 % (0.0-4.3) 11/16/21 15:25 Basophils % (Manual) 0 % (0.0-1.8) 11/16/21 15:25 Metamyelocytes % 0 % 11/16/21 15:25 Myelocytes % 0 % 11/16/21 15:25 Promyelocytes % 0 % 11/16/21 15:25 Blast Cells % 0 % 11/16/21 15:25 Nucleated RBC % Not Reportable 11/16/21 15:25 Seg Neutrophils # Man 15.0 K/mm3 (1.8-7.7) H 11/16/21 15:25 Band Neutrophils # 0.0 K/mm3 11/16/21 15:25 Lymphocytes # (Manual) 1.4 K/mm3 (1.2-5.4) 11/16/21 15:25 Abs React Lymphs (Man) 0.0 K/mm3 11/16/21 15:25 Monocytes # (Manual) 0.9 K/mm3 (0.0-0.8) H 11/16/21 15:25 Eosinophils # (Manual) 0.0 K/mm3 (0.0-0.4) 11/16/21 15:25 Basophils # (Manual) 0.0 K/mm3 (0.0-0.1) 11/16/21 15:25 Metamyelocytes # 0.0 K/mm3 11/16/21 15:25 Myelocytes # 0.0 K/mm3 11/16/21 15:25 Promyelocytes # 0.0 K/mm3 11/16/21 15:25 Blast Cells # 0.0 K/mm3 11/16/21 15:25 WBC Morphology Not Reportable 11/16/21 15:25 Hypersegmented Neuts Not Reportable 11/16/21 15:25 Hyposegmented Neuts Not Reportable 11/16/21 15:25 Hypogranular Neuts Not Reportable 11/16/21 15:25 Smudge Cells Not Reportable 11/16/21 15:25 Toxic Granulation Not Reportable 11/16/21 15:25 Toxic Vacuolation Not Reportable 11/16/21 15:25 Dohle Bodies Not Reportable 11/16/21 15:25 Pelger-Huet Anomaly Not Reportable 11/16/21 15:25 Irina Rods Not Reportable 11/16/21 15:25 Platelet Estimate Consistent w auto 11/16/21 15:25 Clumped Platelets Rare 11/16/21 15:25 Plt Clumps, EDTA Not Reportable 11/16/21 15:25 Large Platelets Not Reportable 11/16/21 15:25 Giant Platelets Not Reportable 11/16/21 15:25 Platelet Satelliting Not Reportable 11/16/21 15:25 Plt Morphology Comment Not Reportable 11/16/21 15:25 RBC Morphology Not Reportable 11/16/21 15:25 Dimorphic RBCs Not Reportable 11/16/21 15:25 Polychromasia Not Reportable 11/16/21 15:25 Hypochromasia 2+ 11/16/21 15:25 Poikilocytosis Not Reportable 11/16/21 15:25 Anisocytosis 2+ 11/16/21 15:25 Microcytosis Not Reportable 11/16/21 15:25 Macrocytosis Not Reportable 11/16/21 15:25 Spherocytes Not Reportable 11/16/21 15:25 Pappenheimer Bodies Not Reportable 11/16/21 15:25 Sickle Cells Not Reportable 11/16/21 15:25 Target Cells 2+ 11/16/21 15:25 Tear Drop Cells Not Reportable 11/16/21 15:25 Ovalocytes Not Reportable 11/16/21 15:25 Helmet Cells Not Reportable 11/16/21 15:25 Odonnell-Brent Bodies Not Reportable 11/16/21 15:25 [place] Rings Not Reportable 11/16/21 15:25 [place] Cells Not Reportable 11/16/21 15:25 Bite Cells Not Reportable 11/16/21 15:25 Crenated Cell Not Reportable 11/16/21 15:25 Elliptocytes Not Reportable 11/16/21 15:25 Acanthocytes (Spur) Not Reportable 11/16/21 15:25 Rouleaux Not Reportable 11/16/21 15:25 Hemoglobin C Crystals Not Reportable 11/16/21 15:25 Schistocytes Not Reportable 11/16/21 15:25 Malaria parasites Not Reportable 11/16/21 15:25 Godfrey Bodies Not Reportable 11/16/21 15:25 Hem Pathologist Commnt No 11/16/21 15:25 PT 16.9 Sec. (12.2-14.9) H 11/26/21 05:00 INR 1.24 (0.87-1.13) H 11/26/21 05:00 APTT 29.2 Sec. (24.2-36.6) 11/26/21 05:00 D-Dimer 2655.00 ng/mlDDU (0-234) H 11/11/21 04:28 ABG pH 7.449 pH Units (7.350-7.450) 11/21/21 16:00 ABG pCO2 32.1 mm Hg 11/21/21 16:00 ABG pO2 114.2 mm Hg (80.0-90.0) H 11/21/21 16:00 ABG HCO3 21.8 mmol/L (20.0-26.0) 11/21/21 16:00 ABG O2 Saturation 98.3 % (95.0-99.0) 11/21/21 16:00 ABG O2 Content 12.5 (0.0-44) 11/21/21 16:00 ABG Base Excess -1.7 mmol/L (-2.0-3.0) 11/21/21 16:00 ABG Hemoglobin 9.1 gm/dl (12.0-16.0) L 11/21/21 16:00 ABG Carboxyhemoglobin 1.9 % (0.0-5.0) 11/21/21 16:00 ABG Methemoglobin 0.5 % (0.0-1.5) 11/21/21 16:00 Oxyhemoglobin 96.0 % (95.0-99.0) 11/21/21 16:00 FiO2 30 % 11/21/21 16:00 Sodium 136 mmol/L (137-145) L 12/03/21 04:00 Potassium 3.6 mmol/L (3.6-5.0) 12/03/21 04:00 Chloride 99.5 mmol/L (98-107) 12/03/21 04:00 Carbon Dioxide 26 mmol/L (22-30) 12/03/21 04:00 Anion Gap 14 mmol/L 12/03/21 04:00 BUN 27 mg/dL (7-17) H 12/03/21 04:00 Creatinine 0.6 mg/dL (0.6-1.2) 12/03/21 04:00 Estimated GFR > 60 ml/min 12/03/21 04:00 BUN/Creatinine Ratio 45 % 12/03/21 04:00 Glucose 133 mg/dL (65-100) H 12/03/21 04:00 POC Glucose 125 mg/dL (70-105) H 12/03/21 11:13 Lactic Acid 3.70 mmol/L (0.7-2.0) H* 11/03/21 22:32 Calcium 7.5 mg/dL (8.4-10.2) L 12/03/21 04:00 Phosphorus 3.10 mg/dL (2.5-4.5) 12/02/21 04:20 Magnesium 2.00 mg/dL (1.7-2.3) 12/02/21 04:20 Ferritin 52.6 ng/mL (10.0-200.0) 11/05/21 06:11 Total Bilirubin 0.50 mg/dL (0.1-1.2) 11/17/21 05:56 Direct Bilirubin < 0.2 mg/dL (0-0.2) 11/11/21 04:28 Indirect Bilirubin 0.1 mg/dL 11/11/21 04:28 AST 36 units/L (5-40) 11/17/21 05:56 ALT 47 units/L (7-56) 11/17/21 05:56 Alkaline Phosphatase 107 units/L (35-129) 11/17/21 05:56 Ammonia 42.0 umol/L (25-60) 11/10/21 14:08 Lactate Dehydrogenase 187 units/L (91-180) H 11/05/21 06:11 Troponin T 0.045 ng/mL (0.00-0.029) H 11/29/21 20:15 C-Reactive Protein 22.20 mg/dL (0.00-1.30) H 11/05/21 06:11 NT-Pro-B Natriuret Pep 7895 pg/mL (0-900) H 11/03/21 22:32 Total Protein 5.1 g/dL (6.3-8.2) L 11/17/21 05:56 Albumin 2.2 g/dL (3.9-5) L 11/17/21 05:56 Albumin/Globulin Ratio 0.8 % 11/17/21 05:56 Triglycerides 59 mg/dL (2-149) 11/29/21 20:15 Cholesterol 74 mg/dL (50-199) 11/29/21 20:15 LDL Cholesterol Direct 25 mg/dL (50-130) L 11/29/21 20:15 HDL Cholesterol 41 mg/dL (40-59) 11/29/21 20:15 Cholesterol/HDL Ratio 1.80 % 11/29/21 20:15 Vitamin B12 1823 pg/mL (211-911) H 11/10/21 14:08 TSH 1.510 mlU/mL (0.270-4.200) 11/10/21 14:08 Urine Color Yellow (Yellow) 11/11/21 09:00 Urine Turbidity Slightly-cloudy (Clear) 11/11/21 09:00 Urine pH 5.0 (5.0-7.0) 11/11/21 09:00 Ur Specific Sayre 1.009 (1.003-1.030) 11/11/21 09:00 Urine Protein <15 mg/dl mg/dL (Negative) 11/11/21 09:00 Urine Glucose (UA) Neg mg/dL (Negative) 11/11/21 09:00 Urine Ketones Neg mg/dL (Negative) 11/11/21 09:00 Urine Blood Mod (Negative) 11/11/21 09:00 Urine Nitrite Neg (Negative) 11/11/21 09:00 Urine Bilirubin Neg (Negative) 11/11/21 09:00 Urine Urobilinogen < 2.0 mg/dL (<2.0) 11/11/21 09:00 Ur Leukocyte Esterase Neg (Negative) 11/11/21 09:00 Urine WBC (Auto) < 1.0 /HPF (0.0-6.0) 11/11/21 09:00 Urine RBC (Auto) < 1.0 /HPF (0.0-6.0) 11/11/21 09:00 Coronavirus (PCR) Negative (Negative) 11/10/21 08:30 Blood Type O POSITIVE 11/18/21 10:45 Antibody Screen Negative 11/18/21 10:45 Crossmatch See Detail 11/18/21 10:45 Gamble/IV: Voiding Method Indwelling Catheter Active Medications - Current Medications Current Medications: Generic Name Dose Route Start Last Admin Trade Name Freq PRN Reason Stop Dose Admin Acetaminophen 650 mg 11/04/21 02:03 11/23/21 16:26 Acetaminophen 325 Mg Tab PO 650 mg Q6H PRN Administration Pain MILD(1-3)/Fever >100.5/RODRIGUEZ Hydrocodone Bitart/Acetaminophen 1 each 11/21/21 10:00 12/03/21 08:25 Hydrocodone/Acetaminophen 10-325mg Tab FEEDTUBE 1 each TID YOSSI Administration Lipase/Protease/Amylase 1 each 11/08/21 11:09 Lipase 10,500/Protease 25,000/Amylase 43,750 (Units) Dr Lema FEEDTUBE PRN PRN For Clogged Feeding Tube Buspirone HCl 7.5 mg 11/17/21 22:00 12/03/21 09:23 Buspirone 5 Mg Tab PO 7.5 mg BID YOSSI Administration Dextrose 0 ml 11/10/21 10:52 11/21/21 16:27 Dextrose 10% *Hypoglycemia IV 50 ml PRN PRN Administration Hypoglycemia Fentanyl 1 applic 11/17/21 13:00 12/02/21 11:43 Fentanyl 25 Mcg/Hr Patch 72hr TD 1 applic Q3D YOSSI Administration Furosemide 20 mg 12/01/21 20:00 12/03/21 09:30 Furosemide 20 Mg/2 Ml Inj IV 12/03/21 23:59 20 mg QDAY YOSSI Administration Gabapentin 100 mg 12/01/21 10:00 12/03/21 09:30 Gabapentin 100 Mg Cap PO 100 mg QDAY YOSSI Administration Hydrophilic Ointment 1 applic 11/06/21 04:02 Lip Therapy Vaseline TP Q2HR PRN Dry Lips NORepinephrine/NS 8 MG-250 ML 8 mg in 250 mls @ 3.75 mls/hr 11/29/21 00:00 12/03/21 09:43 Norepinephrine/Ns 8 Mg-250 Ml (Double Conc) IV 2 mcg/min TITRATE YOSSI 3.75 mls/hr Titration Protocol 2 MCG/MIN Insulin Human Lispro 0 unit 11/06/21 12:00 12/03/21 06:32 Insulin Lispro 100 Unit/Ml SUB-Q Not Given Q6HR [facility] Protocol Lansoprazole 30 mg 11/24/21 22:00 12/03/21 09:22 Lansoprazole 30 Mg Solutab FEEDTUBE 30 mg BID YOSSI Administration Levothyroxine Sodium 125 mcg 11/05/21 07:00 12/03/21 06:32 Levothyroxine 125 Mcg Tab PO 125 mcg DAILY@0600 [facility] Administration Magnesium Hydroxide 30 ml 11/04/21 02:03 Magnesium Hydroxide (Mom) Oral Liqd Udc PO Q4H PRN Constipation Metoprolol Tartrate 12.5 mg 11/21/21 10:00 12/03/21 09:22 Metoprolol Tartrate 25 Mg Tab PO 12.5 mg BID YOSSI Administration Multi-Ingred Cream/Lotion/Oil/Oint 1 applic 11/06/21 04:02 Mineral Oil/Petrolatum, White Ophth Oint 3.5 Gm OU Q4HR PRN Dry Eye(s) Nitroglycerin 0.4 mg 11/30/21 11:36 Nitroglycerin 0.4 Mg Tab Subl SL .Q5MIN PRN Chest Pain Ondansetron HCl 4 mg 11/04/21 02:03 11/05/21 15:48 Ondansetron 4 Mg/2 Ml Inj IV 4 mg Q8H PRN Administration Nausea And Vomiting Polyethylene Glycol 17 gm 12/02/21 10:00 12/03/21 09:22 Polyethylene Glycol 3350 17 Gm Powder PO 17 gm QDAY YOSSI Administration Pravastatin Sodium 20 mg 11/18/21 22:00 02/15/22 21:16 Pravastatin 20 Mg Tab PO 20 mg QHS YOSSI Administration Quetiapine Fumarate 50 mg 12/01/21 22:00 12/02/21 21:16 Quetiapine 25 Mg Tab PO 50 mg QHS YOSSI Administration Senna 17.6 mg 11/08/21 22:00 12/03/21 09:22 Sennosides Oral Liqd 8.8 Mg/5 Ml Oral Liqd PO 17.6 mg Q12HR YOSSI Administration Simple Syrup 15 ml 11/08/21 11:09 Simple Syrup 15 Ml FEEDTUBE PRN PRN Hypoglycemia Simple Syrup 30 ml 11/08/21 11:09 Simple Syrup 15 Ml FEEDTUBE PRN PRN Hypoglycemia Sodium Bicarbonate 325 mg 11/08/21 11:09 Sodium Bicarbonate 325 Mg Tab FEEDTUBE PRN PRN For Clogged Feeding Tube Sodium Chloride 10 ml 11/04/21 10:00 12/03/21 09:24 Sodium Chloride 0.9% 10 Ml Flush Syringe IV 10 ml BID YOSSI Administration Sodium Chloride 10 ml 11/04/21 02:03 Sodium Chloride 0.9% 10 Ml Flush Syringe IV PRN PRN LINE FLUSH Sodium Chloride 10 ml 11/10/21 09:57 11/17/21 20:47 Sodium Chloride 0.9% 50 Ml Ivpb IV 10 ml PRN PRN Administration FLUSH Sucralfate 1 gm 11/18/21 16:30 12/03/21 08:25 Sucralfate 1 Gm/10 Ml Oral Liqd PO 1 gm ACHS YOSSI Administration Nutrition/Malnutrition Assess - Dietary Evaluation Nutrition/Malnutrition Findings: Nutrition Notes Start: 11/04/21 17:16 Freq: Status: Active Protocol: Document 12/01/21 18:39 ISABELL (Rec: 12/01/21 19:19 ISABELL [email or web address]) Nutrition Notes Initial or Follow up Reassessment Current Diagnosis Decubitus(Pressure Ulcer), Diabetes,Hypertension, Respiratory Failure Other Pertinent Diagnosis Bilateral Pneumonia and Pleural Effusion, R- Pneumothorax, CHF-EF, GI Bleed . Current Diet TF-Vital AF 1.2 @ 40 ml/hr ( since 11/30) Labs/Tests 12/01: Na 136, BUN 24, Glu 117 , Ca 7.5, Mg 1.6. Pertinent Medications 12/01: Levothyroxine, others nutritionally unremarkable. Height 5 ft Weight 62.4 kg [place] Body Weight (kg) 45.45 BMI 26.9 Weight change and time frame No body weight change reported . Weight Status Overweight Subjective/Other Information RD consult for routine F/U on TF assessment. Glucerna switched to Vital AF due to out of stock situation. PEG tube placed on 11/26, well tolerated. Pt still on Mechanical Ventilation. Pt has missing teerth, according to Physical Assessment History notes. Case Management note 12/01: Patient officially referred to [facility] for aggressive ventilator weaning. Percent of energy/protein needs met: Prescribed Vital AF 1.2 Tamir @ 40 ml/hr provides for energy/ protein needs (1,150 Kcal/72 g ) during LOS, 95% Kcal; 96% AA . Burn Absent Trauma Absent GI Symptoms Other Difficulty In Swallowing,Chewing Food Allergy No Skin Integrity/Comment Lower Extremities Pressure Ulcer. Current % PO Other Minimum of two criteria No #1 Nutrition Diagnosis Inadequate oral intake Diagnosis Progress(for reassessment Continues documentation) Is patient on ventilator? Yes Is Patient Ambulatory and/or Out of Bed No REE-([facility]-confined to bed) 1207.824 Calculation [facility] Additional Notes Protein: 1.2-2 g/Kg; 75-125 g/ day. Fluids: 1 ml/Kcal, or as per MD. Nutrition Intervention Nutrition Support: Switch to Vital AF 1.2 Tamir @ 40 ml/hr. Flush: 70 ml water Q 4 hr, or as per MD. Kcal 1,150 Protein (gm) 72 Carbohydrates (gm) 106 Fat (gm) 52 Fluid (mL) 777 Fiber (gm) 5 % RDI: 95% Kcal; 96% AA. Goal #1 Provide at least 75% of energy /protein needs through Enteral Feeding during LOS. Goal #2 Maintain body weight within +/ -3% of admission body weight during LOS. Follow-Up By: 12/08/21 Additional Comments Continue monitoring TF tolerance and BM. <LEAH ALFONSO E - Last Filed: 12/04/21 08:05> Assessment and Plan Assessment and plan: I saw and evaluated the patient. I agree with the findings and the plan of care as documented in the Nurse Practitioner's~note, with the following corrections and additions. Hospitalist Physical - Constitutional Vitals: Temp Pulse Resp BP Pulse Ox 97.6 F 77 16 115/76 98 12/04/21 07:49 12/04/21 07:00 12/04/21 07:00 12/04/21 07:00 12/04/21 07:00 HEART Score - HEART Score Troponin: Troponin T 0.045 ng/mL (0.00-0.029) H 11/29/21 20:15 Results - Labs CBC & Chem 7: 12/03/21 04:00 12/04/21 04:00 Labs: Laboratory Last Values WBC 8.5 K/mm3 (4.5-11.0) 12/03/21 04:00 RBC 2.99 M/mm3 (3.65-5.03) L 12/03/21 04:00 Hgb 7.8 gm/dl (10.1-14.3) L 12/03/21 04:00 Hct 24.6 % (30.3-42.9) L 12/03/21 04:00 MCV 82 fl (79-97) 12/03/21 04:00 MCH 26 pg (28-32) L 12/03/21 04:00 MCHC 32 % (30-34) 12/03/21 04:00 RDW 20.2 % (13.2-15.2) H 12/03/21 04:00 Plt Count 183 K/mm3 (140-440) 12/03/21 04:00 Add Manual Diff Complete 11/16/21 15:25 Total Counted 100 11/16/21 15:25 Seg Neutrophils % Courier Delivery Driver 11/06/21 15:50 Seg Neuts % (Manual) 87.0 % (40.0-70.0) H 11/16/21 15:25 Band Neutrophils % 0 % 11/16/21 15:25 Lymphocytes % (Manual) 8.0 % (13.4-35.0) L 11/16/21 15:25 Reactive Lymphs % (Man) 0 % 11/16/21 15:25 Monocytes % (Manual) 5.0 % (0.0-7.3) 11/16/21 15:25 Eosinophils % (Manual) 0 % (0.0-4.3) 11/16/21 15:25 Basophils % (Manual) 0 % (0.0-1.8) 11/16/21 15:25 Metamyelocytes % 0 % 11/16/21 15:25 Myelocytes % 0 % 11/16/21 15:25 Promyelocytes % 0 % 11/16/21 15:25 Blast Cells % 0 % 11/16/21 15:25 Nucleated RBC % Not Reportable 11/16/21 15:25 Seg Neutrophils # Man 15.0 K/mm3 (1.8-7.7) H 11/16/21 15:25 Band Neutrophils # 0.0 K/mm3 11/16/21 15:25 Lymphocytes # (Manual) 1.4 K/mm3 (1.2-5.4) 11/16/21 15:25 Abs React Lymphs (Man) 0.0 K/mm3 11/16/21 15:25 Monocytes # (Manual) 0.9 K/mm3 (0.0-0.8) H 11/16/21 15:25 Eosinophils # (Manual) 0.0 K/mm3 (0.0-0.4) 11/16/21 15:25 Basophils # (Manual) 0.0 K/mm3 (0.0-0.1) 11/16/21 15:25 Metamyelocytes # 0.0 K/mm3 11/16/21 15:25 Myelocytes # 0.0 K/mm3 11/16/21 15:25 Promyelocytes # 0.0 K/mm3 11/16/21 15:25 Blast Cells # 0.0 K/mm3 11/16/21 15:25 WBC Morphology Not Reportable 11/16/21 15:25 Hypersegmented Neuts Not Reportable 11/16/21 15:25 Hyposegmented Neuts Not Reportable 11/16/21 15:25 Hypogranular Neuts Not Reportable 11/16/21 15:25 Smudge Cells Not Reportable 11/16/21 15:25 Toxic Granulation Not Reportable 11/16/21 15:25 Toxic Vacuolation Not Reportable 11/16/21 15:25 Dohle Bodies Not Reportable 11/16/21 15:25 Pelger-Huet Anomaly Not Reportable 11/16/21 15:25 Irina Rods Not Reportable 11/16/21 15:25 Platelet Estimate Consistent w auto 11/16/21 15:25 Clumped Platelets Rare 11/16/21 15:25 Plt Clumps, EDTA Not Reportable 11/16/21 15:25 Large Platelets Not Reportable 11/16/21 15:25 Giant Platelets Not Reportable 11/16/21 15:25 Platelet Satelliting Not Reportable 11/16/21 15:25 Plt Morphology Comment Not Reportable 11/16/21 15:25 RBC Morphology Not Reportable 11/16/21 15:25 Dimorphic RBCs Not Reportable 11/16/21 15:25 Polychromasia Not Reportable 11/16/21 15:25 Hypochromasia 2+ 11/16/21 15:25 Poikilocytosis Not Reportable 11/16/21 15:25 Anisocytosis 2+ 11/16/21 15:25 Microcytosis Not Reportable 11/16/21 15:25 Macrocytosis Not Reportable 11/16/21 15:25 Spherocytes Not Reportable 11/16/21 15:25 Pappenheimer Bodies Not Reportable 11/16/21 15:25 Sickle Cells Not Reportable 11/16/21 15:25 Target Cells 2+ 11/16/21 15:25 Tear Drop Cells Not Reportable 11/16/21 15:25 Ovalocytes Not Reportable 11/16/21 15:25 Helmet Cells Not Reportable 11/16/21 15:25 Odonnell-Brent Bodies Not Reportable 11/16/21 15:25 [place] Rings Not Reportable 11/16/21 15:25 Malcom Cells Not Reportable 11/16/21 15:25 Bite Cells Not Reportable 11/16/21 15:25 Crenated Cell Not Reportable 11/16/21 15:25 Elliptocytes Not Reportable 11/16/21 15:25 Acanthocytes (Spur) Not Reportable 11/16/21 15:25 Rouleaux Not Reportable 11/16/21 15:25 Hemoglobin C Crystals Not Reportable 11/16/21 15:25 Schistocytes Not Reportable 11/16/21 15:25 Malaria parasites Not Reportable 11/16/21 15:25 Godfrey Bodies Not Reportable 11/16/21 15:25 Hem Pathologist Commnt No 11/16/21 15:25 PT 16.9 Sec. (12.2-14.9) H 11/26/21 05:00 INR 1.24 (0.87-1.13) H 11/26/21 05:00 APTT 29.2 Sec. (24.2-36.6) 11/26/21 05:00 D-Dimer 2655.00 ng/mlDDU (0-234) H 11/11/21 04:28 ABG pH 7.449 pH Units (7.350-7.450) 11/21/21 16:00 ABG pCO2 32.1 mm Hg 11/21/21 16:00 ABG pO2 114.2 mm Hg (80.0-90.0) H 11/21/21 16:00 ABG HCO3 21.8 mmol/L (20.0-26.0) 11/21/21 16:00 ABG O2 Saturation 98.3 % (95.0-99.0) 11/21/21 16:00 ABG O2 Content 12.5 (0.0-44) 11/21/21 16:00 ABG Base Excess -1.7 mmol/L (-2.0-3.0) 11/21/21 16:00 ABG Hemoglobin 9.1 gm/dl (12.0-16.0) L 11/21/21 16:00 ABG Carboxyhemoglobin 1.9 % (0.0-5.0) 11/21/21 16:00 ABG Methemoglobin 0.5 % (0.0-1.5) 11/21/21 16:00 Oxyhemoglobin 96.0 % (95.0-99.0) 11/21/21 16:00 FiO2 30 % 11/21/21 16:00 Sodium 138 mmol/L (137-145) 12/04/21 04:00 Potassium 3.5 mmol/L (3.6-5.0) L 12/04/21 04:00 Chloride 99.4 mmol/L (98-107) 12/04/21 04:00 Carbon Dioxide 28 mmol/L (22-30) 12/04/21 04:00 Anion Gap 14 mmol/L 12/04/21 04:00 BUN 26 mg/dL (7-17) H 12/04/21 04:00 Creatinine 0.5 mg/dL (0.6-1.2) L 12/04/21 04:00 Estimated GFR > 60 ml/min 12/04/21 04:00 BUN/Creatinine Ratio 52 % 12/04/21 04:00 Glucose 151 mg/dL (65-100) H 12/04/21 04:00 POC Glucose 142 mg/dL (70-105) H 12/04/21 05:36 Lactic Acid 3.70 mmol/L (0.7-2.0) H* 11/03/21 22:32 Calcium 8.3 mg/dL (8.4-10.2) L 12/04/21 04:00 Phosphorus 3.20 mg/dL (2.5-4.5) 12/04/21 04:00 Magnesium 1.80 mg/dL (1.7-2.3) 12/04/21 04:00 Ferritin 52.6 ng/mL (10.0-200.0) 11/05/21 06:11 Total Bilirubin 0.50 mg/dL (0.1-1.2) 11/17/21 05:56 Direct Bilirubin < 0.2 mg/dL (0-0.2) 11/11/21 04:28 Indirect Bilirubin 0.1 mg/dL 11/11/21 04:28 AST 36 units/L (5-40) 11/17/21 05:56 ALT 47 units/L (7-56) 11/17/21 05:56 Alkaline Phosphatase 107 units/L (35-129) 11/17/21 05:56 Ammonia 42.0 umol/L (25-60) 11/10/21 14:08 Lactate Dehydrogenase 187 units/L (91-180) H 11/05/21 06:11 Troponin T 0.045 ng/mL (0.00-0.029) H 11/29/21 20:15 C-Reactive Protein 22.20 mg/dL (0.00-1.30) H 11/05/21 06:11 NT-Pro-B Natriuret Pep 7895 pg/mL (0-900) H 11/03/21 22:32 Total Protein 5.1 g/dL (6.3-8.2) L 11/17/21 05:56 Albumin 2.2 g/dL (3.9-5) L 11/17/21 05:56 Albumin/Globulin Ratio 0.8 % 11/17/21 05:56 Triglycerides 59 mg/dL (2-149) 11/29/21 20:15 Cholesterol 74 mg/dL (50-199) 11/29/21 20:15 LDL Cholesterol Direct 25 mg/dL (50-130) L 11/29/21 20:15 HDL Cholesterol 41 mg/dL (40-59) 11/29/21 20:15 Cholesterol/HDL Ratio 1.80 % 11/29/21 20:15 Vitamin B12 1823 pg/mL (211-911) H 11/10/21 14:08 TSH 1.510 mlU/mL (0.270-4.200) 11/10/21 14:08 Urine Color Yellow (Yellow) 11/11/21 09:00 Urine Turbidity Slightly-cloudy (Clear) 11/11/21 09:00 Urine pH 5.0 (5.0-7.0) 11/11/21 09:00 Ur Specific Sayre 1.009 (1.003-1.030) 11/11/21 09:00 Urine Protein <15 mg/dl mg/dL (Negative) 11/11/21 09:00 Urine Glucose (UA) Neg mg/dL (Negative) 11/11/21 09:00 Urine Ketones Neg mg/dL (Negative) 11/11/21 09:00 Urine Blood Mod (Negative) 11/11/21 09:00 Urine Nitrite Neg (Negative) 11/11/21 09:00 Urine Bilirubin Neg (Negative) 11/11/21 09:00 Urine Urobilinogen < 2.0 mg/dL (<2.0) 11/11/21 09:00 Ur Leukocyte Esterase Neg (Negative) 11/11/21 09:00 Urine WBC (Auto) < 1.0 /HPF (0.0-6.0) 11/11/21 09:00 Urine RBC (Auto) < 1.0 /HPF (0.0-6.0) 11/11/21 09:00 Coronavirus (PCR) Negative (Negative) 11/10/21 08:30 Blood Type O POSITIVE 11/18/21 10:45 Antibody Screen Negative 11/18/21 10:45 Crossmatch See Detail 11/18/21 10:45 Gamble/IV: Voiding Method Indwelling Catheter Active Medications - Current Medications Current Medications: Generic Name Dose Route Start Last Admin Trade Name Freq PRN Reason Stop Dose Admin Acetaminophen 650 mg 11/04/21 02:03 11/23/21 16:26 Acetaminophen 325 Mg Tab PO 650 mg Q6H PRN Administration Pain MILD(1-3)/Fever >100.5/RODRIGUEZ Hydrocodone Bitart/Acetaminophen 1 each 11/21/21 10:00 12/03/21 20:48 Hydrocodone/Acetaminophen 10-325mg Tab FEEDTUBE 1 each TID YOSSI Administration Lipase/Protease/Amylase 1 each 11/08/21 11:09 Lipase 10,500/Protease 25,000/Amylase 43,750 (Units) Dr Lema FEEDTUBE PRN PRN For Clogged Feeding Tube Buspirone HCl 7.5 mg 11/17/21 22:00 12/03/21 21:33 Buspirone 5 Mg Tab PO 7.5 mg BID YOSSI Administration Dextrose 0 ml 11/10/21 10:52 11/21/21 16:27 Dextrose 10% *Hypoglycemia IV 50 ml PRN PRN Administration Hypoglycemia Fentanyl 1 applic 11/17/21 13:00 12/02/21 11:43 Fentanyl 25 Mcg/Hr Patch 72hr TD 1 applic Q3D YOSSI Administration Gabapentin 100 mg 12/01/21 10:00 12/03/21 09:30 Gabapentin 100 Mg Cap PO 100 mg QDAY YOSSI Administration Hydrophilic Ointment 1 applic 11/06/21 04:02 Lip Therapy Vaseline TP Q2HR PRN Dry Lips NORepinephrine/NS 8 MG-250 ML 8 mg in 250 mls @ 3.75 mls/hr 11/29/21 00:00 12/04/21 03:57 Norepinephrine/Ns 8 Mg-250 Ml (Double Conc) IV 6 mcg/min TITRATE YOSSI 11.25 mls/hr Administration Protocol 2 MCG/MIN Insulin Human Lispro 0 unit 11/06/21 12:00 12/04/21 06:01 Insulin Lispro 100 Unit/Ml SUB-Q Not Given Q6HR [facility] Protocol Lansoprazole 30 mg 11/24/21 22:00 12/03/21 21:33 Lansoprazole 30 Mg Solutab FEEDTUBE 30 mg BID YOSSI Administration Levothyroxine Sodium 125 mcg 11/05/21 07:00 12/04/21 05:59 Levothyroxine 125 Mcg Tab PO 125 mcg DAILY@0600 YOSSI Administration Magnesium Hydroxide 30 ml 11/04/21 02:03 Magnesium Hydroxide (Mom) Oral Liqd Udc PO Q4H PRN Constipation Metoprolol Tartrate 12.5 mg 11/21/21 10:00 12/03/21 21:34 Metoprolol Tartrate 25 Mg Tab PO 12.5 mg BID YOSSI Administration Multi-Ingred Cream/Lotion/Oil/Oint 1 applic 11/06/21 04:02 Mineral Oil/Petrolatum, White Ophth Oint 3.5 Gm OU Q4HR PRN Dry Eye(s) Nitroglycerin 0.4 mg 11/30/21 11:36 Nitroglycerin 0.4 Mg Tab Subl SL .Q5MIN PRN Chest Pain Ondansetron HCl 4 mg 11/04/21 02:03 11/05/21 15:48 Ondansetron 4 Mg/2 Ml Inj IV 4 mg Q8H PRN Administration Nausea And Vomiting Polyethylene Glycol 17 gm 12/02/21 10:00 12/03/21 09:22 Polyethylene Glycol 3350 17 Gm Powder PO 17 gm QDAY YOSSI Administration Pravastatin Sodium 20 mg 11/18/21 22:00 12/04/21 05:25 Pravastatin 20 Mg Tab PO 20 mg QHS YOSSI Administration Quetiapine Fumarate 50 mg 12/01/21 22:00 12/03/21 21:33 Quetiapine 25 Mg Tab PO 50 mg QHS YOSSI Administration Senna 17.6 mg 11/08/21 22:00 12/03/21 21:33 Sennosides Oral Liqd 8.8 Mg/5 Ml Oral Liqd PO 17.6 mg Q12HR YOSSI Administration Simple Syrup 15 ml 11/08/21 11:09 Simple Syrup 15 Ml FEEDTUBE PRN PRN Hypoglycemia Simple Syrup 30 ml 11/08/21 11:09 Simple Syrup 15 Ml FEEDTUBE PRN PRN Hypoglycemia Sodium Bicarbonate 325 mg 11/08/21 11:09 Sodium Bicarbonate 325 Mg Tab FEEDTUBE PRN PRN For Clogged Feeding Tube Sodium Chloride 10 ml 11/04/21 10:00 12/03/21 21:34 Sodium Chloride 0.9% 10 Ml Flush Syringe IV 10 ml BID YOSSI Administration Sodium Chloride 10 ml 11/04/21 02:03 Sodium Chloride 0.9% 10 Ml Flush Syringe IV PRN PRN LINE FLUSH Sodium Chloride 10 ml 11/10/21 09:57 11/17/21 20:47 Sodium Chloride 0.9% 50 Ml Ivpb IV 10 ml PRN PRN Administration FLUSH Sucralfate 1 gm 11/18/21 16:30 12/03/21 21:33 Sucralfate 1 Gm/10 Ml Oral Liqd PO 1 gm ACHS YOSSI Administration Nutrition/Malnutrition Assess - Dietary Evaluation Nutrition/Malnutrition Findings: Nutrition Notes Start: 11/04/21 17:16 Freq: Status: Active Protocol: Document 12/01/21 18:39 ISABELL (Rec: 12/01/21 19:19 ISABELL [id number]) Nutrition Notes Initial or Follow up Reassessment Current Diagnosis Decubitus(Pressure Ulcer), Diabetes,Hypertension, Respiratory Failure Other Pertinent Diagnosis Bilateral Pneumonia and Pleural Effusion, R- Pneumothorax, CHF-EF, GI Bleed . Current Diet TF-Vital AF 1.2 @ 40 ml/hr ( since 11/30) Labs/Tests 12/01: Na 136, BUN 24, Glu 117 , Ca 7.5, Mg 1.6. Pertinent Medications 12/01: Levothyroxine, others nutritionally unremarkable. Height 5 ft Weight 62.4 kg [place] Body Weight (kg) 45.45 BMI 26.9 Weight change and time frame No body weight change reported . Weight Status Overweight Subjective/Other Information RD consult for routine F/U on TF assessment. Glucerna switched to Vital AF due to out of stock situation. PEG tube placed on 11/26, well tolerated. Pt still on Mechanical Ventilation. Pt has missing teerth, according to Physical Assessment History notes. Case Management note 12/01: Patient officially referred [facility] for aggressive ventilator weaning. Percent of energy/protein needs met: Prescribed Vital AF 1.2 Tamir @ 40 ml/hr provides for energy/ protein needs (1,150 Kcal/72 g ) during LOS, 95% Kcal; 96% AA . Burn Absent Trauma Absent GI Symptoms Other Difficulty In Swallowing,Chewing Food Allergy No Skin Integrity/Comment Lower Extremities Pressure Ulcer. Current % PO Other Minimum of two criteria No #1 Nutrition Diagnosis Inadequate oral intake Diagnosis Progress(for reassessment Continues documentation) Is patient on ventilator? Yes Is Patient Ambulatory and/or Out of Bed No [facility] 9950.760 Calculation Used for Recommendations [facility] Additional Notes Protein: 1.2-2 g/Kg; 75-125 g/ day. Fluids: 1 ml/Kcal, or as per MD. Nutrition Intervention Nutrition Support: Switch to Vital AF 1.2 Tamir @ 40 ml/hr. Flush: 70 ml water Q 4 hr, or as per MD. Kcal 1,150 Protein (gm) 72 Carbohydrates (gm) 106 Fat (gm) 52 Fluid (mL) 777 Fiber (gm) 5 % RDI: 95% Kcal; 96% AA. Goal #1 Provide at least 75% of energy /protein needs through Enteral Feeding during LOS. Goal #2 Maintain body weight within +/ -3% of admission body weight during LOS. Follow-Up By: 12/08/21 Additional Comments Continue monitoring TF tolerance and BM.
--- NOTE | 2021-12-03 18:17 | Progress Note ---
Assessment and Plan Severe Sepsis POA vs septic shock- 11/03/2021 blood culture: 2 sets positive for GPC Acute respiratory failure with hypoxia, s/p trach on MVS Acute microcytic anemia Bilateral pneumonia Left pleural effusion Cardiomyopathy EF 30-35% Moderate pulmonary HTN RVSP 49 Acute DVT s/p IVC Anemia Daily SBTs as tolerated. Conservative fluid management as tolerated by hemodynamics and renal function Intermittently requires Vasopressor at low dose, add low dose midodrine to therapy to maintain SBP>65 Continue to monitor hemoglobin and transfuse as clinically indicated to keep HgB>7g/dL Continue to optimize enteric nutritional support Maintain sleep-wake cycle, she appears to have more confusion at night. Add sleep aid PT/OT, increase activity Discharge planning- possible LTACH - continue to titrate supplemental oxygen to keep SPO2 88-90% - VAP bundle addressed, aspiration precautions, HOB >40 - continue bronchodilators with pulmonary hygiene per RT - continue avoid nephrotoxins, renally dose all medications - Accuchecks with glycemic control per SSI (While critically ill target blood glucose of 140-180 mg/dL; avoid hypoglycemia) - continue to avoid benzodiazepines, reduce the possibility of delirium -trend temperature curve, trend WCC, continue to monitor off antibiotics - Maintenance of sleep-wake cycle, avoid delirium -Stress ulcer prophylaxis (Lansoprazole) -VTE prophyalxis- s/p IVC filter. No anticoagulation 11/18 EGD- Large cratered ulcer in the posterior duodenal bulb about 2 cm in diameter.Visible vessel present. Mild active oozing from the ulcer bed. A total of 3 injections were performed around the ulcer for a total of 2.5 cc of dilute epinephrine and hemostasis was obtained. -mobility, off loading and frequent turning to prevent pressure ulcer -continue with enteric nutritional support via PEG, at goal rate - Continue to monitor hemodynamics closely - continue other care per attending / other consultants COVID SPECIFIC INTERVENTIONS - Negative CONDITION: FAIR PROGNOSIS: GUARDED CODE STATUS: FULL CODE The high probability of a clinically significant, sudden or life-threatening deterioration of the [respiratory, cardiovascular and hematologic] system(s) required my full and direct attention, intervention and personal management. The aggregate critical care time was [33] minutes without overlap. Time includes spent on; [x] Data Review and interpretation [x] Patient assessment and monitoring of vital signs [x] Documentation [x] Medication orders and management Subjective Date of service: 12/03/21 Principal diagnosis: Septic shock; AHRF; Anemia; Pneumonia; L. pleural effusion; HFrEF; Pulm HTN Interval history: Follow up fro acute hypoxemic resp failure s/p tracheostomy to MVS ; Septic and cardiogenic shock; severe anemia; Patient seen and examined. Vitals, labs, medications, chart and imaging reviewed. Discussed with respiratory and nursing care staff. No fevers overnight, no diarrhea, no vomiting. Episodes of agitation, with patient dislodging the trach but easily re-directed. Hypotension overnight and she was restarted on Norepinephrine. Was on PSV yesterday for a few minutes and did not tolerate it Objective Vital Signs - 12hr 12/03/21 12/03/21 12/03/21 07:00 07:19 08:00 Temperature 99.2 F Pulse Rate 74 71 Respiratory 24 13 Rate Blood Pressure 124/73 113/62 O2 Sat by Pulse 100 100 Oximetry O2 Sat by Pulse 100 Oximetry [ Assessment] 12/03/21 12/03/21 12/03/21 09:01 09:22 10:01 Temperature Pulse Rate 76 79 73 Respiratory 20 18 Rate Blood Pressure 123/66 108/69 100/52 O2 Sat by Pulse 100 99 Oximetry O2 Sat by Pulse Oximetry [ Assessment] 12/03/21 12/03/21 12/03/21 11:01 11:40 11:48 Temperature 98.0 F Pulse Rate 64 62 Respiratory 18 Rate Blood Pressure 97/54 80/38 O2 Sat by Pulse 99 100 Oximetry O2 Sat by Pulse Oximetry [ Assessment] 12/03/21 12/03/21 12/03/21 12:00 13:00 14:01 Temperature Pulse Rate 61 67 77 Respiratory 13 15 16 Rate Blood Pressure 75/34 92/49 84/51 O2 Sat by Pulse 99 100 100 Oximetry O2 Sat by Pulse Oximetry [ Assessment] 12/03/21 12/03/21 16:00 16:20 Temperature 97.7 F Pulse Rate 65 Respiratory Rate Blood Pressure 107/68 O2 Sat by Pulse 100 Oximetry O2 Sat by Pulse 100 Oximetry [ Assessment] Constitutional: no acute distress, other (trach to MVS, frail elderly woman with mildly increased respiratory effort at rest) Eyes: non-icteric ENT: oropharynx moist, oropharyngeal exudate pre (clear frothy), other (+ Midline tracheostomy) Neck: supple, no lymphadenopathy, no JVD Effort: mildly labored Ascultation: Bilateral: diminished breath sounds, rhonchi, other (Right chest tube) Percussion: Bilateral: not dull Cardiovascular: regular rate and rhythm, other (S1,S2) Gastrointestinal: normoactive bowel sounds, soft, non-tender, non-distended (protuberant) Integumentary: normal Extremities: no cyanosis, pink and warm, pulses normal, edema (upper etremities) Neurologic: non-focal exam (grossly), pupils equal and round Psychiatric: mood appropriate, affect normal CBC and BMP: 12/08/21 04:00 12/08/21 04:00 ABG, PT/INR, D-dimer: ABG ABG pH 7.449 pH Units (7.350-7.450) 11/21/21 16:00 ABG pCO2 32.1 mm Hg 11/21/21 16:00 ABG pO2 114.2 mm Hg (80.0-90.0) H 11/21/21 16:00 ABG O2 Saturation 98.3 % (95.0-99.0) 11/21/21 16:00 PT/INR, D-dimer PT 16.9 Sec. (12.2-14.9) H 11/26/21 05:00 INR 1.24 (0.87-1.13) H 11/26/21 05:00 D-Dimer 2655.00 ng/mlDDU (0-234) H 11/11/21 04:28 Abnormal lab findings: Abnormal Labs 11/03/21 11/03/21 11/03/21 22:32 22:32 22:32 WBC 29.3 H RBC 2.93 L Hgb 6.1 L Hct 21.9 L MCV 75 L MCH 21 L MCHC 28 L RDW 19.7 H Plt Count Seg Neuts % (Manual) 97.0 H Lymphocytes % (Manual) 3.0 L Seg Neutrophils # Man 28.4 H Lymphocytes # (Manual) 0.9 L Monocytes # (Manual) PT 18.6 H INR 1.40 H D-Dimer ABG pH ABG pO2 ABG HCO3 ABG O2 Saturation ABG Base Excess ABG Hemoglobin Oxyhemoglobin Sodium Potassium Chloride Carbon Dioxide 20 L BUN 33 H Glucose 119 H POC Glucose Lactic Acid Calcium 8.3 L Phosphorus Magnesium AST ALT Alkaline Phosphatase Lactate Dehydrogenase Troponin T 0.035 H C-Reactive Protein NT-Pro-B Natriuret Pep Total Protein Albumin LDL Cholesterol Direct 34 L Vitamin B12 Crossmatch 11/03/21 11/03/21 11/03/21 22:32 22:32 23:57 WBC RBC Hgb Hct MCV MCH MCHC RDW Plt Count Seg Neuts % (Manual) Lymphocytes % (Manual) Seg Neutrophils # Man Lymphocytes # (Manual) Monocytes # (Manual) PT INR D-Dimer ABG pH ABG pO2 ABG HCO3 ABG O2 Saturation ABG Base Excess ABG Hemoglobin Oxyhemoglobin Sodium Potassium Chloride Carbon Dioxide BUN Glucose POC Glucose Lactic Acid 3.70 H* Calcium Phosphorus Magnesium AST ALT Alkaline Phosphatase 139 H Lactate Dehydrogenase Troponin T C-Reactive Protein NT-Pro-B Natriuret Pep 7895 H Total Protein Albumin 3.5 L LDL Cholesterol Direct Vitamin B12 Crossmatch See Detail 11/04/21 11/04/21 11/05/21 00:59 13:58 00:51 WBC 27.9 H RBC 3.28 L Hgb 7.3 L Hct 25.5 L MCV 78 L MCH 22 L MCHC 29 L RDW 19.1 H Plt Count Seg Neuts % (Manual) 96.0 H Lymphocytes % (Manual) 2.0 L Seg Neutrophils # Man 26.8 H Lymphocytes # (Manual) 0.6 L Monocytes # (Manual) PT INR D-Dimer ABG pH ABG pO2 ABG HCO3 ABG O2 Saturation ABG Base Excess ABG Hemoglobin Oxyhemoglobin Sodium Potassium Chloride Carbon Dioxide BUN Glucose POC Glucose Lactic Acid Calcium Phosphorus Magnesium AST ALT Alkaline Phosphatase Lactate Dehydrogenase Troponin T 0.051 H D 0.032 H D C-Reactive Protein NT-Pro-B Natriuret Pep Total Protein Albumin LDL Cholesterol Direct Vitamin B12 Crossmatch 11/05/21 11/05/21 11/05/21 06:11 06:11 06:11 WBC 31.8 H RBC 3.57 L Hgb 8.0 L Hct 27.7 L MCV 78 L MCH 22 L MCHC 29 L RDW 19.2 H Plt Count Seg Neuts % (Manual) 91.0 H Lymphocytes % (Manual) 4.5 L Seg Neutrophils # Man 28.9 H Lymphocytes # (Manual) Monocytes # (Manual) 1.1 H PT INR D-Dimer 1494.53 H ABG pH ABG pO2 ABG HCO3 ABG O2 Saturation ABG Base Excess ABG Hemoglobin Oxyhemoglobin Sodium Potassium Chloride Carbon Dioxide 19 L BUN 42 H Glucose 115 H POC Glucose Lactic Acid Calcium Phosphorus Magnesium AST 43 H ALT Alkaline Phosphatase Lactate Dehydrogenase 187 H Troponin T C-Reactive Protein 22.20 H NT-Pro-B Natriuret Pep Total Protein 6.0 L Albumin 3.2 L LDL Cholesterol Direct Vitamin B12 Crossmatch 11/05/21 11/05/21 11/06/21 06:11 12:15 00:30 WBC RBC Hgb Hct MCV MCH MCHC RDW Plt Count Seg Neuts % (Manual) Lymphocytes % (Manual) Seg Neutrophils # Man Lymphocytes # (Manual) Monocytes # (Manual) PT INR D-Dimer ABG pH ABG pO2 ABG HCO3 ABG O2 Saturation ABG Base Excess ABG Hemoglobin Oxyhemoglobin Sodium Potassium Chloride Carbon Dioxide BUN Glucose POC Glucose 113 H 69 L Lactic Acid Calcium Phosphorus Magnesium AST ALT Alkaline Phosphatase Lactate Dehydrogenase Troponin T 0.033 H C-Reactive Protein NT-Pro-B Natriuret Pep Total Protein Albumin LDL Cholesterol Direct Vitamin B12 Crossmatch 11/06/21 11/06/21 11/06/21 05:50 15:50 15:50 WBC 25.5 H RBC 3.62 L Hgb 8.0 L Hct 27.5 L MCV 76 L MCH 22 L MCHC 29 L RDW 19.6 H Plt Count Seg Neuts % (Manual) 92.0 H Lymphocytes % (Manual) 5.0 L Seg Neutrophils # Man 23.5 H Lymphocytes # (Manual) Monocytes # (Manual) PT INR D-Dimer ABG pH 7.305 L ABG pO2 ABG HCO3 15.8 L ABG O2 Saturation ABG Base Excess -9.6 L ABG Hemoglobin 8.6 L Oxyhemoglobin 94.6 L Sodium Potassium Chloride 113.9 H Carbon Dioxide 17 L BUN 56 H Glucose 114 H POC Glucose Lactic Acid Calcium 7.9 L Phosphorus Magnesium AST 1410 H ALT 934 H Alkaline Phosphatase 142 H Lactate Dehydrogenase Troponin T C-Reactive Protein NT-Pro-B Natriuret Pep Total Protein 5.0 L Albumin 2.6 L LDL Cholesterol Direct Vitamin B12 Crossmatch 11/07/21 11/07/21 11/07/21 03:30 04:50 08:07 WBC RBC Hgb Hct MCV MCH MCHC RDW Plt Count Seg Neuts % (Manual) Lymphocytes % (Manual) Seg Neutrophils # Man Lymphocytes # (Manual) Monocytes # (Manual) PT INR D-Dimer ABG pH ABG pO2 296.9 H ABG HCO3 18.1 L ABG O2 Saturation 99.5 H ABG Base Excess -5.9 L ABG Hemoglobin 7.6 L Oxyhemoglobin Sodium Potassium Chloride Carbon Dioxide BUN Glucose POC Glucose 106 H 108 H Lactic Acid Calcium Phosphorus Magnesium AST ALT Alkaline Phosphatase Lactate Dehydrogenase Troponin T C-Reactive Protein NT-Pro-B Natriuret Pep Total Protein Albumin LDL Cholesterol Direct Vitamin B12 Crossmatch 11/08/21 11/08/21 11/08/21 03:10 18:05 23:43 WBC RBC Hgb Hct MCV MCH MCHC RDW Plt Count Seg Neuts % (Manual) Lymphocytes % (Manual) Seg Neutrophils # Man Lymphocytes # (Manual) Monocytes # (Manual) PT INR D-Dimer ABG pH ABG pO2 127.4 H ABG HCO3 ABG O2 Saturation ABG Base Excess -3.4 L ABG Hemoglobin 7.4 L Oxyhemoglobin Sodium Potassium Chloride Carbon Dioxide BUN Glucose POC Glucose 113 H 141 H Lactic Acid Calcium Phosphorus Magnesium AST ALT Alkaline Phosphatase Lactate Dehydrogenase Troponin T C-Reactive Protein NT-Pro-B Natriuret Pep Total Protein Albumin LDL Cholesterol Direct Vitamin B12 Crossmatch 11/08/21 11/08/21 11/09/21 Unknown Unknown 02:00 WBC 14.5 H RBC 3.35 L Hgb 7.5 L 8.1 L Hct 25.4 L 27.6 L MCV 76 L 76 L MCH 23 L 22 L MCHC RDW 19.9 H 19.9 H Plt Count Seg Neuts % (Manual) Lymphocytes % (Manual) Seg Neutrophils # Man Lymphocytes # (Manual) Monocytes # (Manual) PT INR D-Dimer ABG pH ABG pO2 ABG HCO3 ABG O2 Saturation ABG Base Excess ABG Hemoglobin Oxyhemoglobin Sodium 154 H D Potassium 3.3 L Chloride 120.7 H Carbon Dioxide 20 L BUN 38 H Glucose POC Glucose Lactic Acid Calcium 8.3 L Phosphorus Magnesium AST ALT Alkaline Phosphatase Lactate Dehydrogenase Troponin T C-Reactive Protein NT-Pro-B Natriuret Pep Total Protein Albumin LDL Cholesterol Direct Vitamin B12 Crossmatch 11/09/21 11/09/21 11/09/21 02:00 02:31 05:12 WBC RBC Hgb Hct MCV MCH MCHC RDW Plt Count Seg Neuts % (Manual) Lymphocytes % (Manual) Seg Neutrophils # Man Lymphocytes # (Manual) Monocytes # (Manual) PT INR D-Dimer ABG pH 7.479 H ABG pO2 121.3 H ABG HCO3 ABG O2 Saturation ABG Base Excess ABG Hemoglobin 7.3 L Oxyhemoglobin Sodium Potassium Chloride 112.5 H Carbon Dioxide BUN 33 H Glucose 161 H POC Glucose 135 H Lactic Acid Calcium Phosphorus Magnesium AST 251 H ALT 481 H Alkaline Phosphatase Lactate Dehydrogenase Troponin T C-Reactive Protein NT-Pro-B Natriuret Pep Total Protein 5.0 L Albumin 2.8 L LDL Cholesterol Direct Vitamin B12 Crossmatch 11/09/21 11/09/21 11/09/21 11:33 16:32 23:28 WBC RBC Hgb Hct MCV MCH MCHC RDW Plt Count Seg Neuts % (Manual) Lymphocytes % (Manual) Seg Neutrophils # Man Lymphocytes # (Manual) Monocytes # (Manual) PT INR D-Dimer ABG pH ABG pO2 ABG HCO3 ABG O2 Saturation ABG Base Excess ABG Hemoglobin Oxyhemoglobin Sodium Potassium Chloride Carbon Dioxide BUN Glucose POC Glucose 132 H 133 H 143 H Lactic Acid Calcium Phosphorus Magnesium AST ALT Alkaline Phosphatase Lactate Dehydrogenase Troponin T C-Reactive Protein NT-Pro-B Natriuret Pep Total Protein Albumin LDL Cholesterol Direct Vitamin B12 Crossmatch 11/10/21 11/10/21 11/10/21 04:00 04:00 05:35 WBC 16.0 H RBC 3.61 L Hgb 8.0 L Hct 27.1 L MCV 75 L MCH 22 L MCHC RDW 20.4 H Plt Count Seg Neuts % (Manual) Lymphocytes % (Manual) Seg Neutrophils # Man Lymphocytes # (Manual) Monocytes # (Manual) PT INR D-Dimer ABG pH ABG pO2 ABG HCO3 ABG O2 Saturation ABG Base Excess ABG Hemoglobin Oxyhemoglobin Sodium 149 H Potassium Chloride 114.1 H Carbon Dioxide BUN 31 H Glucose 148 H POC Glucose 132 H Lactic Acid Calcium 8.2 L Phosphorus Magnesium AST ALT Alkaline Phosphatase Lactate Dehydrogenase Troponin T C-Reactive Protein NT-Pro-B Natriuret Pep Total Protein Albumin LDL Cholesterol Direct Vitamin B12 Crossmatch 11/10/21 11/10/21 11/10/21 11:31 14:08 15:35 WBC RBC Hgb Hct MCV MCH MCHC RDW Plt Count Seg Neuts % (Manual) Lymphocytes % (Manual) Seg Neutrophils # Man Lymphocytes # (Manual) Monocytes # (Manual) PT INR D-Dimer ABG pH ABG pO2 126.6 H ABG HCO3 ABG O2 Saturation ABG Base Excess ABG Hemoglobin 7.4 L Oxyhemoglobin Sodium Potassium Chloride Carbon Dioxide BUN Glucose POC Glucose 147 H Lactic Acid Calcium Phosphorus Magnesium AST ALT Alkaline Phosphatase Lactate Dehydrogenase Troponin T C-Reactive Protein NT-Pro-B Natriuret Pep Total Protein Albumin LDL Cholesterol Direct Vitamin B12 1823 H Crossmatch 11/10/21 11/11/21 11/11/21 17:53 00:55 04:28 WBC RBC Hgb Hct MCV MCH MCHC RDW Plt Count Seg Neuts % (Manual) Lymphocytes % (Manual) Seg Neutrophils # Man Lymphocytes # (Manual) Monocytes # (Manual) PT INR D-Dimer ABG pH ABG pO2 ABG HCO3 ABG O2 Saturation ABG Base Excess ABG Hemoglobin Oxyhemoglobin Sodium 149 H Potassium Chloride 112.2 H Carbon Dioxide BUN 34 H Glucose 148 H POC Glucose 140 H 145 H Lactic Acid Calcium 7.9 L Phosphorus Magnesium AST 53 H ALT 203 H Alkaline Phosphatase Lactate Dehydrogenase Troponin T C-Reactive Protein NT-Pro-B Natriuret Pep Total Protein 4.9 L Albumin 2.6 L LDL Cholesterol Direct Vitamin B12 Crossmatch 11/11/21 11/11/21 11/11/21 04:28 04:28 05:28 WBC 20.9 H RBC 3.47 L Hgb 7.5 L Hct 26.0 L MCV 75 L MCH 22 L MCHC 29 L RDW 21.6 H Plt Count 132 L Seg Neuts % (Manual) Lymphocytes % (Manual) Seg Neutrophils # Man Lymphocytes # (Manual) Monocytes # (Manual) PT INR D-Dimer 2655.00 H ABG pH ABG pO2 ABG HCO3 ABG O2 Saturation ABG Base Excess ABG Hemoglobin Oxyhemoglobin Sodium Potassium Chloride Carbon Dioxide BUN Glucose POC Glucose 154 H Lactic Acid Calcium Phosphorus Magnesium AST ALT Alkaline Phosphatase Lactate Dehydrogenase Troponin T C-Reactive Protein NT-Pro-B Natriuret Pep Total Protein Albumin LDL Cholesterol Direct Vitamin B12 Crossmatch 11/11/21 11/11/21 11/12/21 12:38 18:13 00:14 WBC RBC Hgb Hct MCV MCH MCHC RDW Plt Count Seg Neuts % (Manual) Lymphocytes % (Manual) Seg Neutrophils # Man Lymphocytes # (Manual) Monocytes # (Manual) PT INR D-Dimer ABG pH ABG pO2 ABG HCO3 ABG O2 Saturation ABG Base Excess ABG Hemoglobin Oxyhemoglobin Sodium Potassium Chloride Carbon Dioxide BUN Glucose POC Glucose 137 H 108 H 137 H Lactic Acid Calcium Phosphorus Magnesium AST ALT Alkaline Phosphatase Lactate Dehydrogenase Troponin T C-Reactive Protein NT-Pro-B Natriuret Pep Total Protein Albumin LDL Cholesterol Direct Vitamin B12 Crossmatch 11/12/21 11/12/21 11/12/21 05:40 06:24 11:12 WBC RBC Hgb Hct MCV MCH MCHC RDW Plt Count Seg Neuts % (Manual) Lymphocytes % (Manual) Seg Neutrophils # Man Lymphocytes # (Manual) Monocytes # (Manual) PT INR D-Dimer ABG pH 7.586 H ABG pO2 150.6 H ABG HCO3 27.2 H ABG O2 Saturation 99.1 H ABG Base Excess 5.2 H ABG Hemoglobin 7.5 L Oxyhemoglobin Sodium Potassium Chloride Carbon Dioxide BUN Glucose POC Glucose 132 H 140 H Lactic Acid Calcium Phosphorus Magnesium AST ALT Alkaline Phosphatase Lactate Dehydrogenase Troponin T C-Reactive Protein NT-Pro-B Natriuret Pep Total Protein Albumin LDL Cholesterol Direct Vitamin B12 Crossmatch 11/12/21 11/12/21 11/12/21 14:50 14:50 17:13 WBC 19.8 H RBC 3.27 L Hgb 7.1 L Hct 24.5 L MCV 75 L MCH 22 L MCHC 29 L RDW 22.3 H Plt Count Seg Neuts % (Manual) Lymphocytes % (Manual) Seg Neutrophils # Man Lymphocytes # (Manual) Monocytes # (Manual) PT INR D-Dimer ABG pH ABG pO2 ABG HCO3 ABG O2 Saturation ABG Base Excess ABG Hemoglobin Oxyhemoglobin Sodium 150 H Potassium 3.3 L Chloride 112.0 H Carbon Dioxide BUN 40 H Glucose 151 H POC Glucose 121 H Lactic Acid Calcium 7.4 L Phosphorus 1.70 L Magnesium 1.40 L AST ALT Alkaline Phosphatase Lactate Dehydrogenase Troponin T C-Reactive Protein NT-Pro-B Natriuret Pep Total Protein Albumin LDL Cholesterol Direct Vitamin B12 Crossmatch 11/12/21 11/13/21 11/13/21 23:19 05:34 06:30 WBC RBC Hgb Hct MCV MCH MCHC RDW Plt Count Seg Neuts % (Manual) Lymphocytes % (Manual) Seg Neutrophils # Man Lymphocytes # (Manual) Monocytes # (Manual) PT INR D-Dimer ABG pH ABG pO2 ABG HCO3 ABG O2 Saturation ABG Base Excess ABG Hemoglobin Oxyhemoglobin Sodium 149 H Potassium Chloride 60.0 L Carbon Dioxide BUN 40 H Glucose 146 H POC Glucose 113 H 132 H Lactic Acid Calcium 7.3 L Phosphorus Magnesium 2.40 H AST ALT 72 H Alkaline Phosphatase Lactate Dehydrogenase Troponin T C-Reactive Protein NT-Pro-B Natriuret Pep Total Protein 5.2 L Albumin 2.2 L LDL Cholesterol Direct Vitamin B12 Crossmatch 11/13/21 11/13/21 11/13/21 06:30 08:30 11:19 WBC 21.2 H RBC 3.12 L Hgb 6.8 L Hct 23.2 L MCV 74 L MCH 22 L MCHC 29 L RDW 22.2 H Plt Count 135 L Seg Neuts % (Manual) Lymphocytes % (Manual) Seg Neutrophils # Man Lymphocytes # (Manual) Monocytes # (Manual) PT INR D-Dimer ABG pH ABG pO2 ABG HCO3 ABG O2 Saturation ABG Base Excess ABG Hemoglobin Oxyhemoglobin Sodium Potassium Chloride Carbon Dioxide BUN Glucose POC Glucose 136 H Lactic Acid Calcium Phosphorus Magnesium AST ALT Alkaline Phosphatase Lactate Dehydrogenase Troponin T C-Reactive Protein NT-Pro-B Natriuret Pep Total Protein Albumin LDL Cholesterol Direct Vitamin B12 Crossmatch See Detail 11/13/21 11/14/21 11/14/21 18:21 00:01 04:46 WBC 20.0 H RBC 3.41 L Hgb 7.9 L Hct 26.8 L MCV MCH 23 L MCHC 29 L RDW 24.0 H Plt Count Seg Neuts % (Manual) Lymphocytes % (Manual) Seg Neutrophils # Man Lymphocytes # (Manual) Monocytes # (Manual) PT INR D-Dimer ABG pH ABG pO2 ABG HCO3 ABG O2 Saturation ABG Base Excess ABG Hemoglobin Oxyhemoglobin Sodium Potassium Chloride Carbon Dioxide BUN Glucose POC Glucose 149 H 141 H Lactic Acid Calcium Phosphorus Magnesium AST ALT Alkaline Phosphatase Lactate Dehydrogenase Troponin T C-Reactive Protein NT-Pro-B Natriuret Pep Total Protein Albumin LDL Cholesterol Direct Vitamin B12 Crossmatch 11/14/21 11/14/21 11/14/21 04:46 05:10 11:10 WBC RBC Hgb Hct MCV MCH MCHC RDW Plt Count Seg Neuts % (Manual) Lymphocytes % (Manual) Seg Neutrophils # Man Lymphocytes # (Manual) Monocytes # (Manual) PT INR D-Dimer ABG pH ABG pO2 ABG HCO3 ABG O2 Saturation ABG Base Excess ABG Hemoglobin Oxyhemoglobin Sodium 148 H Potassium Chloride 113.1 H Carbon Dioxide BUN 43 H Glucose 140 H POC Glucose 132 H 133 H Lactic Acid Calcium 7.5 L Phosphorus Magnesium AST ALT Alkaline Phosphatase Lactate Dehydrogenase Troponin T C-Reactive Protein NT-Pro-B Natriuret Pep Total Protein Albumin LDL Cholesterol Direct Vitamin B12 Crossmatch 11/14/21 11/14/21 11/14/21 16:14 17:48 23:23 WBC RBC Hgb Hct MCV MCH MCHC RDW Plt Count Seg Neuts % (Manual) Lymphocytes % (Manual) Seg Neutrophils # Man Lymphocytes # (Manual) Monocytes # (Manual) PT INR D-Dimer ABG pH ABG pO2 ABG HCO3 28.0 H ABG O2 Saturation ABG Base Excess 3.1 H ABG Hemoglobin 5.8 L Oxyhemoglobin 94.8 L Sodium Potassium Chloride Carbon Dioxide BUN Glucose POC Glucose 130 H 136 H Lactic Acid Calcium Phosphorus Magnesium AST ALT Alkaline Phosphatase Lactate Dehydrogenase Troponin T C-Reactive Protein NT-Pro-B Natriuret Pep Total Protein Albumin LDL Cholesterol Direct Vitamin B12 Crossmatch 11/15/21 11/15/21 11/15/21 05:20 05:50 05:50 WBC 19.9 H RBC 3.50 L Hgb 8.2 L Hct 27.9 L MCV MCH 23 L MCHC 29 L RDW 24.9 H Plt Count Seg Neuts % (Manual) Lymphocytes % (Manual) Seg Neutrophils # Man Lymphocytes # (Manual) Monocytes # (Manual) PT INR D-Dimer ABG pH ABG pO2 ABG HCO3 ABG O2 Saturation ABG Base Excess ABG Hemoglobin Oxyhemoglobin Sodium 149 H Potassium Chloride 112.0 H Carbon Dioxide BUN 48 H Glucose 152 H POC Glucose 137 H Lactic Acid Calcium 7.9 L Phosphorus Magnesium AST ALT Alkaline Phosphatase Lactate Dehydrogenase Troponin T C-Reactive Protein NT-Pro-B Natriuret Pep Total Protein Albumin LDL Cholesterol Direct Vitamin B12 Crossmatch 11/15/21 11/15/21 11/15/21 12:12 17:07 23:24 WBC RBC Hgb Hct MCV MCH MCHC RDW Plt Count Seg Neuts % (Manual) Lymphocytes % (Manual) Seg Neutrophils # Man Lymphocytes # (Manual) Monocytes # (Manual) PT INR D-Dimer ABG pH ABG pO2 ABG HCO3 ABG O2 Saturation ABG Base Excess ABG Hemoglobin Oxyhemoglobin Sodium Potassium Chloride Carbon Dioxide BUN Glucose POC Glucose 114 H 135 H 123 H Lactic Acid Calcium Phosphorus Magnesium AST ALT Alkaline Phosphatase Lactate Dehydrogenase Troponin T C-Reactive Protein NT-Pro-B Natriuret Pep Total Protein Albumin LDL Cholesterol Direct Vitamin B12 Crossmatch 11/16/21 11/16/21 11/16/21 05:21 10:00 10:00 WBC 21.7 H RBC 2.57 L Hgb 6.0 L Hct 20.2 L D MCV MCH 24 L MCHC RDW 26.3 H Plt Count Seg Neuts % (Manual) Lymphocytes % (Manual) Seg Neutrophils # Man Lymphocytes # (Manual) Monocytes # (Manual) PT INR D-Dimer ABG pH ABG pO2 ABG HCO3 ABG O2 Saturation ABG Base Excess ABG Hemoglobin Oxyhemoglobin Sodium 153 H Potassium Chloride 114.9 H Carbon Dioxide BUN 74 H Glucose 155 H POC Glucose 127 H Lactic Acid Calcium 8.1 L Phosphorus Magnesium AST ALT Alkaline Phosphatase Lactate Dehydrogenase Troponin T C-Reactive Protein NT-Pro-B Natriuret Pep Total Protein Albumin LDL Cholesterol Direct Vitamin B12 Crossmatch 11/16/21 11/16/21 11/16/21 11:34 14:00 15:25 WBC 17.2 H RBC 2.08 L Hgb 4.7 L* Hct 16.2 L* MCV 78 L MCH 23 L MCHC 29 L RDW 26.0 H Plt Count Seg Neuts % (Manual) 87.0 H Lymphocytes % (Manual) 8.0 L Seg Neutrophils # Man 15.0 H Lymphocytes # (Manual) Monocytes # (Manual) 0.9 H PT INR D-Dimer ABG pH ABG pO2 ABG HCO3 ABG O2 Saturation ABG Base Excess ABG Hemoglobin Oxyhemoglobin Sodium Potassium Chloride Carbon Dioxide BUN Glucose POC Glucose 131 H Lactic Acid Calcium Phosphorus Magnesium AST ALT Alkaline Phosphatase Lactate Dehydrogenase Troponin T C-Reactive Protein NT-Pro-B Natriuret Pep Total Protein Albumin LDL Cholesterol Direct Vitamin B12 Crossmatch See Detail 11/16/21 11/16/21 11/16/21 15:25 17:21 22:43 WBC RBC Hgb 8.6 L D Hct 27.7 L D MCV MCH MCHC RDW Plt Count Seg Neuts % (Manual) Lymphocytes % (Manual) Seg Neutrophils # Man Lymphocytes # (Manual) Monocytes # (Manual) PT INR D-Dimer ABG pH ABG pO2 ABG HCO3 ABG O2 Saturation ABG Base Excess ABG Hemoglobin Oxyhemoglobin Sodium 148 H Potassium Chloride 113.2 H Carbon Dioxide BUN 84 H Glucose 164 H POC Glucose 124 H Lactic Acid Calcium 7.6 L Phosphorus Magnesium AST ALT Alkaline Phosphatase Lactate Dehydrogenase Troponin T C-Reactive Protein NT-Pro-B Natriuret Pep Total Protein Albumin LDL Cholesterol Direct Vitamin B12 Crossmatch 11/16/21 11/17/21 11/17/21 23:07 05:33 05:56 WBC 25.1 H RBC 3.47 L Hgb 8.7 L Hct 28.5 L MCV MCH 25 L MCHC RDW 22.3 H Plt Count Seg Neuts % (Manual) Lymphocytes % (Manual) Seg Neutrophils # Man Lymphocytes # (Manual) Monocytes # (Manual) PT INR D-Dimer ABG pH ABG pO2 ABG HCO3 ABG O2 Saturation ABG Base Excess ABG Hemoglobin Oxyhemoglobin Sodium Potassium Chloride Carbon Dioxide BUN Glucose POC Glucose 128 H 133 H Lactic Acid Calcium Phosphorus Magnesium AST ALT Alkaline Phosphatase Lactate Dehydrogenase Troponin T C-Reactive Protein NT-Pro-B Natriuret Pep Total Protein Albumin LDL Cholesterol Direct Vitamin B12 Crossmatch 11/17/21 11/17/21 11/17/21 05:56 11:00 11:55 WBC RBC Hgb 8.3 L Hct 26.9 L MCV MCH MCHC RDW Plt Count Seg Neuts % (Manual) Lymphocytes % (Manual) Seg Neutrophils # Man Lymphocytes # (Manual) Monocytes # (Manual) PT INR D-Dimer ABG pH ABG pO2 ABG HCO3 ABG O2 Saturation ABG Base Excess ABG Hemoglobin Oxyhemoglobin Sodium 151 H Potassium Chloride 113.6 H Carbon Dioxide BUN 85 H Glucose 132 H POC Glucose 121 H Lactic Acid Calcium 7.8 L Phosphorus Magnesium AST ALT Alkaline Phosphatase Lactate Dehydrogenase Troponin T C-Reactive Protein NT-Pro-B Natriuret Pep Total Protein 5.1 L Albumin 2.2 L LDL Cholesterol Direct Vitamin B12 Crossmatch 11/17/21 11/17/21 11/18/21 18:04 18:55 00:26 WBC RBC Hgb 7.5 L 7.1 L Hct 24.8 L 23.6 L MCV MCH MCHC RDW Plt Count Seg Neuts % (Manual) Lymphocytes % (Manual) Seg Neutrophils # Man Lymphocytes # (Manual) Monocytes # (Manual) PT INR D-Dimer ABG pH ABG pO2 ABG HCO3 ABG O2 Saturation ABG Base Excess ABG Hemoglobin Oxyhemoglobin Sodium Potassium Chloride Carbon Dioxide BUN Glucose POC Glucose 144 H Lactic Acid Calcium Phosphorus Magnesium AST ALT Alkaline Phosphatase Lactate Dehydrogenase Troponin T C-Reactive Protein NT-Pro-B Natriuret Pep Total Protein Albumin LDL Cholesterol Direct Vitamin B12 Crossmatch 11/18/21 11/18/21 11/18/21 00:43 05:10 05:10 WBC 12.5 H RBC 2.39 L Hgb 6.1 L Hct 20.2 L MCV MCH 25 L MCHC RDW 23.2 H Plt Count Seg Neuts % (Manual) Lymphocytes % (Manual) Seg Neutrophils # Man Lymphocytes # (Manual) Monocytes # (Manual) PT INR D-Dimer ABG pH ABG pO2 ABG HCO3 ABG O2 Saturation ABG Base Excess ABG Hemoglobin Oxyhemoglobin Sodium 131 L D Potassium 2.9 L* D Chloride 97.8 L Carbon Dioxide BUN 58 H Glucose 665 H* POC Glucose 139 H Lactic Acid Calcium 7.0 L Phosphorus 2.20 L D Magnesium 1.50 L AST ALT Alkaline Phosphatase Lactate Dehydrogenase Troponin T C-Reactive Protein NT-Pro-B Natriuret Pep Total Protein Albumin LDL Cholesterol Direct Vitamin B12 Crossmatch 11/18/21 11/18/21 11/18/21 05:23 07:10 10:45 WBC RBC Hgb Hct MCV MCH MCHC RDW Plt Count Seg Neuts % (Manual) Lymphocytes % (Manual) Seg Neutrophils # Man Lymphocytes # (Manual) Monocytes # (Manual) PT INR D-Dimer ABG pH ABG pO2 ABG HCO3 ABG O2 Saturation ABG Base Excess ABG Hemoglobin Oxyhemoglobin Sodium 148 H D Potassium 3.1 L Chloride 111.9 H Carbon Dioxide BUN 63 H Glucose 141 H POC Glucose 124 H Lactic Acid Calcium 8.1 L D Phosphorus Magnesium AST ALT Alkaline Phosphatase Lactate Dehydrogenase Troponin T C-Reactive Protein NT-Pro-B Natriuret Pep Total Protein Albumin LDL Cholesterol Direct Vitamin B12 Crossmatch See Detail 11/18/21 11/19/21 11/19/21 11:57 00:19 04:55 WBC RBC 3.35 L Hgb 9.0 L 8.9 L Hct 28.3 L D 28.1 L MCV MCH 27 L MCHC RDW 20.3 H Plt Count Seg Neuts % (Manual) Lymphocytes % (Manual) Seg Neutrophils # Man Lymphocytes # (Manual) Monocytes # (Manual) PT INR D-Dimer ABG pH ABG pO2 ABG HCO3 ABG O2 Saturation ABG Base Excess ABG Hemoglobin Oxyhemoglobin Sodium Potassium Chloride Carbon Dioxide BUN Glucose POC Glucose 119 H Lactic Acid Calcium Phosphorus Magnesium AST ALT Alkaline Phosphatase Lactate Dehydrogenase Troponin T C-Reactive Protein NT-Pro-B Natriuret Pep Total Protein Albumin LDL Cholesterol Direct Vitamin B12 Crossmatch 11/19/21 11/19/21 11/20/21 04:55 05:42 00:55 WBC RBC Hgb 9.0 L Hct 28.6 L MCV MCH MCHC RDW Plt Count Seg Neuts % (Manual) Lymphocytes % (Manual) Seg Neutrophils # Man Lymphocytes # (Manual) Monocytes # (Manual) PT INR D-Dimer ABG pH ABG pO2 ABG HCO3 ABG O2 Saturation ABG Base Excess ABG Hemoglobin Oxyhemoglobin Sodium Potassium 3.5 L Chloride 108.6 H Carbon Dioxide BUN 47 H Glucose 207 H POC Glucose 63 L Lactic Acid Calcium 7.1 L Phosphorus Magnesium AST ALT Alkaline Phosphatase Lactate Dehydrogenase Troponin T C-Reactive Protein NT-Pro-B Natriuret Pep Total Protein Albumin LDL Cholesterol Direct Vitamin B12 Crossmatch 11/20/21 11/20/21 11/20/21 05:40 05:40 Unknown WBC RBC 3.40 L Hgb 9.1 L Hct 28.8 L MCV MCH 27 L MCHC RDW 20.7 H Plt Count Seg Neuts % (Manual) Lymphocytes % (Manual) Seg Neutrophils # Man Lymphocytes # (Manual) Monocytes # (Manual) PT INR D-Dimer ABG pH ABG pO2 ABG HCO3 ABG O2 Saturation ABG Base Excess -2.7 L ABG Hemoglobin 9.5 L Oxyhemoglobin 94.3 L Sodium Potassium 3.5 L Chloride 108.9 H Carbon Dioxide BUN 37 H Glucose 117 H POC Glucose Lactic Acid Calcium 7.5 L Phosphorus Magnesium AST ALT Alkaline Phosphatase Lactate Dehydrogenase Troponin T C-Reactive Protein NT-Pro-B Natriuret Pep Total Protein Albumin LDL Cholesterol Direct Vitamin B12 Crossmatch 11/21/21 11/21/21 11/21/21 04:30 04:30 16:00 WBC RBC 3.25 L Hgb 8.6 L Hct 28.1 L MCV MCH 26 L MCHC RDW 20.7 H Plt Count Seg Neuts % (Manual) Lymphocytes % (Manual) Seg Neutrophils # Man Lymphocytes # (Manual) Monocytes # (Manual) PT INR D-Dimer ABG pH ABG pO2 114.2 H ABG HCO3 ABG O2 Saturation ABG Base Excess ABG Hemoglobin 9.1 L Oxyhemoglobin Sodium 134 L Potassium Chloride Carbon Dioxide 20 L BUN 34 H Glucose POC Glucose Lactic Acid Calcium 7.1 L Phosphorus Magnesium AST ALT Alkaline Phosphatase Lactate Dehydrogenase Troponin T C-Reactive Protein NT-Pro-B Natriuret Pep Total Protein Albumin LDL Cholesterol Direct Vitamin B12 Crossmatch 11/22/21 11/22/21 11/22/21 07:07 07:07 23:54 WBC RBC 3.30 L Hgb 9.0 L Hct 28.5 L MCV MCH 27 L MCHC RDW 21.0 H Plt Count Seg Neuts % (Manual) Lymphocytes % (Manual) Seg Neutrophils # Man Lymphocytes # (Manual) Monocytes # (Manual) PT INR D-Dimer ABG pH ABG pO2 ABG HCO3 ABG O2 Saturation ABG Base Excess ABG Hemoglobin Oxyhemoglobin Sodium Potassium Chloride Carbon Dioxide BUN 32 H Glucose 106 H POC Glucose 110 H Lactic Acid Calcium 7.5 L Phosphorus Magnesium AST ALT Alkaline Phosphatase Lactate Dehydrogenase Troponin T C-Reactive Protein NT-Pro-B Natriuret Pep Total Protein Albumin LDL Cholesterol Direct Vitamin B12 Crossmatch 11/23/21 11/23/21 11/23/21 04:38 04:38 06:01 WBC RBC 3.23 L Hgb 8.8 L Hct 28.0 L MCV MCH 27 L MCHC RDW 21.3 H Plt Count Seg Neuts % (Manual) Lymphocytes % (Manual) Seg Neutrophils # Man Lymphocytes # (Manual) Monocytes # (Manual) PT INR D-Dimer ABG pH ABG pO2 ABG HCO3 ABG O2 Saturation ABG Base Excess ABG Hemoglobin Oxyhemoglobin Sodium 136 L Potassium Chloride Carbon Dioxide 20 L BUN 32 H Glucose 109 H POC Glucose 115 H Lactic Acid Calcium 7.7 L Phosphorus Magnesium AST ALT Alkaline Phosphatase Lactate Dehydrogenase Troponin T C-Reactive Protein NT-Pro-B Natriuret Pep Total Protein Albumin LDL Cholesterol Direct Vitamin B12 Crossmatch 11/23/21 11/24/21 11/24/21 11:40 00:03 04:13 WBC RBC 3.18 L Hgb 8.5 L Hct 27.5 L MCV MCH 27 L MCHC RDW 21.6 H Plt Count Seg Neuts % (Manual) Lymphocytes % (Manual) Seg Neutrophils # Man Lymphocytes # (Manual) Monocytes # (Manual) PT INR D-Dimer ABG pH ABG pO2 ABG HCO3 ABG O2 Saturation ABG Base Excess ABG Hemoglobin Oxyhemoglobin Sodium Potassium Chloride Carbon Dioxide BUN Glucose POC Glucose 117 H 111 H Lactic Acid Calcium Phosphorus Magnesium AST ALT Alkaline Phosphatase Lactate Dehydrogenase Troponin T C-Reactive Protein NT-Pro-B Natriuret Pep Total Protein Albumin LDL Cholesterol Direct Vitamin B12 Crossmatch 11/24/21 11/24/21 11/24/21 04:13 05:30 11:10 WBC RBC Hgb Hct MCV MCH MCHC RDW Plt Count Seg Neuts % (Manual) Lymphocytes % (Manual) Seg Neutrophils # Man Lymphocytes # (Manual) Monocytes # (Manual) PT INR D-Dimer ABG pH ABG pO2 ABG HCO3 ABG O2 Saturation ABG Base Excess ABG Hemoglobin Oxyhemoglobin Sodium Potassium Chloride Carbon Dioxide BUN 31 H Glucose 101 H POC Glucose 115 H 107 H Lactic Acid Calcium 7.7 L Phosphorus Magnesium AST ALT Alkaline Phosphatase Lactate Dehydrogenase Troponin T C-Reactive Protein NT-Pro-B Natriuret Pep Total Protein Albumin LDL Cholesterol Direct Vitamin B12 Crossmatch 11/24/21 11/24/21 11/25/21 16:34 17:57 05:12 WBC RBC 3.11 L Hgb 8.2 L Hct 26.6 L MCV MCH 26 L MCHC RDW 21.3 H Plt Count Seg Neuts % (Manual) Lymphocytes % (Manual) Seg Neutrophils # Man Lymphocytes # (Manual) Monocytes # (Manual) PT INR D-Dimer ABG pH ABG pO2 ABG HCO3 ABG O2 Saturation ABG Base Excess ABG Hemoglobin Oxyhemoglobin Sodium Potassium Chloride Carbon Dioxide BUN Glucose POC Glucose 115 H 110 H Lactic Acid Calcium Phosphorus Magnesium AST ALT Alkaline Phosphatase Lactate Dehydrogenase Troponin T C-Reactive Protein NT-Pro-B Natriuret Pep Total Protein Albumin LDL Cholesterol Direct Vitamin B12 Crossmatch 11/25/21 11/25/21 11/26/21 05:12 11:20 05:00 WBC RBC 3.30 L Hgb 8.8 L Hct 28.2 L MCV MCH 27 L MCHC RDW 20.7 H Plt Count Seg Neuts % (Manual) Lymphocytes % (Manual) Seg Neutrophils # Man Lymphocytes # (Manual) Monocytes # (Manual) PT INR D-Dimer ABG pH ABG pO2 ABG HCO3 ABG O2 Saturation ABG Base Excess ABG Hemoglobin Oxyhemoglobin Sodium Potassium Chloride Carbon Dioxide BUN 32 H Glucose 118 H POC Glucose 118 H Lactic Acid Calcium 8.2 L Phosphorus Magnesium AST ALT Alkaline Phosphatase Lactate Dehydrogenase Troponin T C-Reactive Protein NT-Pro-B Natriuret Pep Total Protein Albumin LDL Cholesterol Direct Vitamin B12 Crossmatch 11/26/21 11/26/21 11/26/21 05:00 05:00 05:44 WBC RBC Hgb Hct MCV MCH MCHC RDW Plt Count Seg Neuts % (Manual) Lymphocytes % (Manual) Seg Neutrophils # Man Lymphocytes # (Manual) Monocytes # (Manual) PT 16.9 H INR 1.24 H D-Dimer ABG pH ABG pO2 ABG HCO3 ABG O2 Saturation ABG Base Excess ABG Hemoglobin Oxyhemoglobin Sodium Potassium Chloride Carbon Dioxide BUN 31 H Glucose 104 H POC Glucose 110 H Lactic Acid Calcium 7.9 L Phosphorus Magnesium AST ALT Alkaline Phosphatase Lactate Dehydrogenase Troponin T C-Reactive Protein NT-Pro-B Natriuret Pep Total Protein Albumin LDL Cholesterol Direct Vitamin B12 Crossmatch 11/26/21 11/27/21 11/27/21 23:55 07:40 07:40 WBC RBC 3.18 L Hgb 8.5 L Hct 27.0 L MCV MCH 27 L MCHC RDW 21.2 H Plt Count Seg Neuts % (Manual) Lymphocytes % (Manual) Seg Neutrophils # Man Lymphocytes # (Manual) Monocytes # (Manual) PT INR D-Dimer ABG pH ABG pO2 ABG HCO3 ABG O2 Saturation ABG Base Excess ABG Hemoglobin Oxyhemoglobin Sodium Potassium Chloride Carbon Dioxide BUN 27 H Glucose 112 H POC Glucose 63 L Lactic Acid Calcium 7.6 L Phosphorus Magnesium AST ALT Alkaline Phosphatase Lactate Dehydrogenase Troponin T C-Reactive Protein NT-Pro-B Natriuret Pep Total Protein Albumin LDL Cholesterol Direct Vitamin B12 Crossmatch 11/27/21 11/27/21 11/27/21 12:04 13:40 13:40 WBC RBC 3.31 L Hgb 8.7 L Hct 28.0 L MCV MCH 26 L MCHC RDW 20.7 H Plt Count Seg Neuts % (Manual) Lymphocytes % (Manual) Seg Neutrophils # Man Lymphocytes # (Manual) Monocytes # (Manual) PT INR D-Dimer ABG pH ABG pO2 ABG HCO3 ABG O2 Saturation ABG Base Excess ABG Hemoglobin Oxyhemoglobin Sodium 136 L Potassium Chloride Carbon Dioxide BUN 25 H Glucose 127 H POC Glucose 109 H Lactic Acid Calcium 7.6 L Phosphorus Magnesium 1.40 L AST ALT Alkaline Phosphatase Lactate Dehydrogenase Troponin T C-Reactive Protein NT-Pro-B Natriuret Pep Total Protein Albumin LDL Cholesterol Direct Vitamin B12 Crossmatch 11/27/21 11/27/21 11/28/21 17:44 23:33 12:20 WBC RBC Hgb Hct MCV MCH MCHC RDW Plt Count Seg Neuts % (Manual) Lymphocytes % (Manual) Seg Neutrophils # Man Lymphocytes # (Manual) Monocytes # (Manual) PT INR D-Dimer ABG pH ABG pO2 ABG HCO3 ABG O2 Saturation ABG Base Excess ABG Hemoglobin Oxyhemoglobin Sodium Potassium Chloride Carbon Dioxide BUN Glucose POC Glucose 107 H 108 H 114 H Lactic Acid Calcium Phosphorus Magnesium AST ALT Alkaline Phosphatase Lactate Dehydrogenase Troponin T C-Reactive Protein NT-Pro-B Natriuret Pep Total Protein Albumin LDL Cholesterol Direct Vitamin B12 Crossmatch 11/29/21 11/29/21 11/29/21 00:09 03:20 03:20 WBC RBC 3.05 L Hgb 8.2 L Hct 25.8 L MCV MCH 27 L MCHC RDW 20.9 H Plt Count Seg Neuts % (Manual) Lymphocytes % (Manual) Seg Neutrophils # Man Lymphocytes # (Manual) Monocytes # (Manual) PT INR D-Dimer ABG pH ABG pO2 ABG HCO3 ABG O2 Saturation ABG Base Excess ABG Hemoglobin Oxyhemoglobin Sodium 133 L Potassium Chloride Carbon Dioxide BUN 24 H Glucose 137 H POC Glucose 134 H Lactic Acid Calcium 7.4 L Phosphorus Magnesium AST ALT Alkaline Phosphatase Lactate Dehydrogenase Troponin T C-Reactive Protein NT-Pro-B Natriuret Pep Total Protein Albumin LDL Cholesterol Direct Vitamin B12 Crossmatch 11/29/21 11/29/21 11/29/21 05:38 11:39 17:11 WBC RBC Hgb Hct MCV MCH MCHC RDW Plt Count Seg Neuts % (Manual) Lymphocytes % (Manual) Seg Neutrophils # Man Lymphocytes # (Manual) Monocytes # (Manual) PT INR D-Dimer ABG pH ABG pO2 ABG HCO3 ABG O2 Saturation ABG Base Excess ABG Hemoglobin Oxyhemoglobin Sodium Potassium Chloride Carbon Dioxide BUN Glucose POC Glucose 117 H 143 H 124 H Lactic Acid Calcium Phosphorus Magnesium AST ALT Alkaline Phosphatase Lactate Dehydrogenase Troponin T C-Reactive Protein NT-Pro-B Natriuret Pep Total Protein Albumin LDL Cholesterol Direct Vitamin B12 Crossmatch 11/29/21 11/30/21 11/30/21 20:15 05:40 05:40 WBC 12.6 H RBC 3.41 L Hgb 9.1 L Hct 28.9 L MCV MCH 27 L MCHC RDW 20.4 H Plt Count Seg Neuts % (Manual) Lymphocytes % (Manual) Seg Neutrophils # Man Lymphocytes # (Manual) Monocytes # (Manual) PT INR D-Dimer ABG pH ABG pO2 ABG HCO3 ABG O2 Saturation ABG Base Excess ABG Hemoglobin Oxyhemoglobin Sodium Potassium Chloride Carbon Dioxide BUN 24 H Glucose 131 H POC Glucose Lactic Acid Calcium 7.6 L Phosphorus Magnesium AST ALT Alkaline Phosphatase Lactate Dehydrogenase Troponin T 0.045 H C-Reactive Protein NT-Pro-B Natriuret Pep Total Protein Albumin LDL Cholesterol Direct 25 L Vitamin B12 Crossmatch 11/30/21 11/30/21 12/01/21 11:29 16:51 05:00 WBC RBC 2.97 L Hgb 8.0 L Hct 25.0 L MCV MCH 27 L MCHC RDW 20.8 H Plt Count Seg Neuts % (Manual) Lymphocytes % (Manual) Seg Neutrophils # Man Lymphocytes # (Manual) Monocytes # (Manual) PT INR D-Dimer ABG pH ABG pO2 ABG HCO3 ABG O2 Saturation ABG Base Excess ABG Hemoglobin Oxyhemoglobin Sodium Potassium Chloride Carbon Dioxide BUN Glucose POC Glucose 123 H 114 H Lactic Acid Calcium Phosphorus Magnesium AST ALT Alkaline Phosphatase Lactate Dehydrogenase Troponin T C-Reactive Protein NT-Pro-B Natriuret Pep Total Protein Albumin LDL Cholesterol Direct Vitamin B12 Crossmatch 12/01/21 12/01/21 12/01/21 05:00 05:25 11:54 WBC RBC Hgb Hct MCV MCH MCHC RDW Plt Count Seg Neuts % (Manual) Lymphocytes % (Manual) Seg Neutrophils # Man Lymphocytes # (Manual) Monocytes # (Manual) PT INR D-Dimer ABG pH ABG pO2 ABG HCO3 ABG O2 Saturation ABG Base Excess ABG Hemoglobin Oxyhemoglobin Sodium 136 L Potassium Chloride Carbon Dioxide BUN 24 H Glucose 117 H POC Glucose 108 H 107 H Lactic Acid Calcium 7.5 L Phosphorus Magnesium 1.60 L AST ALT Alkaline Phosphatase Lactate Dehydrogenase Troponin T C-Reactive Protein NT-Pro-B Natriuret Pep Total Protein Albumin LDL Cholesterol Direct Vitamin B12 Crossmatch 12/01/21 12/02/21 12/02/21 17:40 00:07 04:20 WBC RBC 2.92 L Hgb 7.7 L Hct 24.3 L MCV MCH 26 L MCHC RDW 20.5 H Plt Count Seg Neuts % (Manual) Lymphocytes % (Manual) Seg Neutrophils # Man Lymphocytes # (Manual) Monocytes # (Manual) PT INR D-Dimer ABG pH ABG pO2 ABG HCO3 ABG O2 Saturation ABG Base Excess ABG Hemoglobin Oxyhemoglobin Sodium Potassium Chloride Carbon Dioxide BUN Glucose POC Glucose 123 H 110 H Lactic Acid Calcium Phosphorus Magnesium AST ALT Alkaline Phosphatase Lactate Dehydrogenase Troponin T C-Reactive Protein NT-Pro-B Natriuret Pep Total Protein Albumin LDL Cholesterol Direct Vitamin B12 Crossmatch 12/02/21 12/02/21 12/02/21 04:20 11:17 18:20 WBC RBC Hgb Hct MCV MCH MCHC RDW Plt Count Seg Neuts % (Manual) Lymphocytes % (Manual) Seg Neutrophils # Man Lymphocytes # (Manual) Monocytes # (Manual) PT INR D-Dimer ABG pH ABG pO2 ABG HCO3 ABG O2 Saturation ABG Base Excess ABG Hemoglobin Oxyhemoglobin Sodium 135 L Potassium Chloride Carbon Dioxide BUN 26 H Glucose 121 H POC Glucose 117 H 113 H Lactic Acid Calcium 7.4 L Phosphorus Magnesium AST ALT Alkaline Phosphatase Lactate Dehydrogenase Troponin T C-Reactive Protein NT-Pro-B Natriuret Pep Total Protein Albumin LDL Cholesterol Direct Vitamin B12 Crossmatch 12/03/21 12/03/21 12/03/21 00:12 04:00 04:00 WBC RBC 2.99 L Hgb 7.8 L Hct 24.6 L MCV MCH 26 L MCHC RDW 20.2 H Plt Count Seg Neuts % (Manual) Lymphocytes % (Manual) Seg Neutrophils # Man Lymphocytes # (Manual) Monocytes # (Manual) PT INR D-Dimer ABG pH ABG pO2 ABG HCO3 ABG O2 Saturation ABG Base Excess ABG Hemoglobin Oxyhemoglobin Sodium 136 L Potassium Chloride Carbon Dioxide BUN 27 H Glucose 133 H POC Glucose 121 H Lactic Acid Calcium 7.5 L Phosphorus Magnesium AST ALT Alkaline Phosphatase Lactate Dehydrogenase Troponin T C-Reactive Protein NT-Pro-B Natriuret Pep Total Protein Albumin LDL Cholesterol Direct Vitamin B12 Crossmatch 12/03/21 12/03/21 12/03/21 06:30 11:13 16:00 WBC RBC Hgb Hct MCV MCH MCHC RDW Plt Count Seg Neuts % (Manual) Lymphocytes % (Manual) Seg Neutrophils # Man Lymphocytes # (Manual) Monocytes # (Manual) PT INR D-Dimer ABG pH ABG pO2 ABG HCO3 ABG O2 Saturation ABG Base Excess ABG Hemoglobin Oxyhemoglobin Sodium Potassium Chloride Carbon Dioxide BUN Glucose POC Glucose 129 H 125 H 125 H Lactic Acid Calcium Phosphorus Magnesium AST ALT Alkaline Phosphatase Lactate Dehydrogenase Troponin T C-Reactive Protein NT-Pro-B Natriuret Pep Total Protein Albumin LDL Cholesterol Direct Vitamin B12 Crossmatch Chest x-ray: image reviewed Allied health notes reviewed: RT
[2021-12-03] MEDS: QUEtiapine 25 MG TAB PO SCH (21:33)
[2021-12-03] MEDS: PRAVASTATIN 20 MG TAB PO SCH (23:00)
[2021-12-03] MEDS: DEXTROSE 10% *Hypoglycemia IV PRN (23:35)
[2021-12-04] MEDS: NORepinephrine/NS 8 MG-250 ML 8 MG/250 ML INFUS..BTL IV SCH (03:57)
[2021-12-04] MEDS: PRAVASTATIN 20 MG TAB PO SCH ×3 (05:25→21:28)
[2021-12-04 05:39] LABS: Blood Urea Nitrogen 26 mg/dL (7-17); Calcium 8.3 mg/dL (8.4-10.2); Hemolysis Index 3
[2021-12-04 05:45] LABS: BUN/Creatinine Ratio 52
[2021-12-04] MEDS: LEVOTHYROXINE 125 MCG TAB PO SCH (05:59)
[2021-12-04] MEDS: INSULIN LISPRO 100 UNIT/ML SUB-Q SCH ×4 (06:01→17:18)
[2021-12-04] MEDS ORDERED: POTASSIUM CHLORIDE 20 MEQ PACKET FEEDTUBE SCH (10:00)
[2021-12-04] MEDS ORDERED: MAGNESIUM SULFATE 2 GM/50 ML BAG IV SCH (10:00)
--- NOTE | 2021-12-04 10:09 | Progress Note ---
<LONNIE MAURICE - Last Filed: 12/04/21 13:45> Assessment and Plan Assessment and plan: This is a 81-year-old female with known history of diabetes mellitus, hypertension, PPM, and arthritis admitted for sepsis and acute hypoxia respiratory failure 2/2 bilateral pneumonia requiring intubation and ventilatory support Hospital Course to date: 11/04/2021: Empiric therapy with iv levaquin/vancomycin. COVID PCR pending. Will consult ID. PCCM consulted, will follow recs. Hypotensive this AM, ordered bolus and fluids at 150 cc/hr. May require pressor support if bp does not improve. 11/05/2021: GBS on bcx +, currently on rocephin IV. Currently on bipap due to respiratory distress overnight. Worsening BL opacities on CXR. May be volume overload vs pneumonia. Unfortunately bp too low for lasix at this point. WIll continue levophed and bipap. Once able to tolerate, may do trial of albumin/lasi x. Call attempt made to Niraj, no response. Will try again tomorrow to update. 11/06/2021: Decompensated overnight requiring intubation. CXR shows worsening interstitial infiltrates. Currenlty on dopamine, levophed, vasopressin. PICC line ordered. Advised RN to place gamble for I/O monitoring. Would benefit from diuresis but very volume overloaded. Prognosis guarded 11/08: Off sedation this am, remains unresponsive only grimace to pain. Hold all sedatives agents for now, patient is off pressors this am. Hypernatremia from today's lab- D5W X1bag, and low K repleted, repeat lab in the am. Severe constipation also noted from KUB, BR added. 11/09: Sudden SPO2 drop in the 60s this am. Patient was manually bagged and deep suctioned. Patient is currently stable on the vent, repeat CXR with no significant change. D/w CCM Mucomyst and brochodilator added. Patient mentation is unchanged, continue to hold off on sedative agents. Neurology consulted. 11/10: Acute DVT noted on bilateral lower extremity Doppler ultrasound therefore she was started on Lovenox treatment dose. Failed SBT. Hypernatremia and hyperchloremia noted, free water flush adjusted. 11/11: Patient noted to be febrile with increasing of the cytosis, UA/BC sent and CXR ordered. ID escalated antibiotics to cefepime. CXR demonstrated mucous plug, bedside bronchoscopy was performed and O ETT was changed over bougie from 6 cm to 7.5. Patient was noted to have a pneumothorax postprocedure and chest tube was placed. Family updated by [facility]. Free water flush increased and will add Jaswant supplementation. 11/12: Patient not noted to follow commands, hypernatremia worsen/persist, increasing free water flush, potassium and magnesium and phosphorus repleted. Hemoglobin noted to be 7.1/24.5 from 7.03/12 yesterday. We will continue to trend and monitor. Vent changes per [facility]. Repeat CXR showed no residual pneumo thorax. Consider waterseal tomorrow. Given persistent leukocytosis antibiotics escalated to cefepime per ID. 11/13: Remains on cefepime and vancomycin, vent changes per [facility]. Anemia noted and given 1 unit PRBC. And beta-charleen held in setting of Levophed drip infusing. Remains on fentanyl drip. 11/14: Patient put on CPAP trial by [facility], will continue chest tube until after extubation. Will rest on assist control. CT brain was cancelled by [employer] and reordered. 11/15: Patient removed chest tube overnight. Will obtain cxr. remains on low dose levo. CTH completed with no acute findings. RT to place on CPAP. 11/16: Hypernatremia/hyperchloremia noted on the increase of day water flushes. Anemia noted and ordered PRBC. asked RT to place on cpap but not done yet 11/17: Patient remains on the vent, awake and following commands. H&H stable s/p 2units PRBCs. GI on consult, no intervention at this time. Will continue protonix gtt and serial H&H Q6hrs. Keep patient NPO for now, D5w added for hypernatremia and NPO status. Plan for IVC filter placement today by Vascular. 11/18: Patient is s/p IVC filter. H&H continue to trend down, hbg 6.1 this am, 1 unit of PRBCs ordered. Plan for possible EGD today by GI. Keep patient NPO, continue PPI drip and serial H&H Q6hrs. Electrolytes repleted, repeat lab in the am 11/19: S/p EGD- larger duodenal ulcer noted, see operative note. GI recommendat ions noted also noted. H&H stable this am. Keep patient on protonix gtt for now. Will keep patient NPO, continue IVF and serial H&H for now. Electrolytes repleted, repeat labs in the am 2/3: Very agitated and restless this am, fentanyl gtt resumed. Patient remains on protonix gtt, H&H remains stable. Will switch protonix gtt to IV BID, continue carafate and okay to resume meds at this time. Will F/u with GI to see if TF can be resumed. Gamble was reinserted overnight for retention. Electrolytes repleted, repeat in the am. Plan for possible PST today for possible extubation per CCM. 11/21: Patient is now on seroquel and patient's home buspar resumed. Patient more calm this morning, fentanyl gtt is off. H&H remains stable and patient is tolerating TF. Patient had a runs of Vtach/PVCs this am, BB added per Cardio. Continue daily PS and wean trial for possible extubation. 11/22: Back on fentanyl gtt overnight , RASS o to -1, following commands. Patient failed PST this am due to increased work of breathing and low SPO2, ABG pending. Patient is also with worsen pitting edema, lasix is still on hold. Will discuss with cardio and CCM to possibly resume lasix. 11/23: MARIA DEL CARMEN overnight. Patient failed PST again this am. Per CCM plan for possible trach and PEG, hold off on IV lasix for now. General surgery consulted and family is aware of possible Trach and PEG. 11/24: Trach/PEG pending this week, continue SBT/SAT as tolerated. No acute events reported overnight. 11/25: Patient was n.p.o. overnight and will remain n.p.o. tonight for trach/PEG tomorrow morning. She failed to support trial again. KUB obtained due to distended belly. 11/26: Patient scheduled for tracheostomy and PEG tube placement today, has been n.p.o. since midnight. No acute events reported overnight. [facility] ordered rosalinda thicone scheduled. 11/27: No acute events reported overnight, patient received trach/PEG yesterday. Has been on feedings since last night. Still awaiting LTAC placement. 11/28: Patient magnesium repleted, repeat a.m. labs, SBT 11/29: Patient complains of chest pain but ECG obtained which showed no acute findings, ordered troponin. Patient failed CPAP yesterday and was trialed again today. levophed was restarted but will aggressively wean 11/30: Patient failed SBT. Continue supportive care. Started gabapentin today 12/01: MARIA DEL CARMEN overnight. Continue daily PST. Case management to arrange possible placement 12/02: Report of dark stools overnight, patient is hemodynamically stable. H&H stable, patient is on PPI. Will continue to trend H&H. Continue daily PST as tolerated. Awaiting LTAC vs SNF placement. 12/03: Hypotensive overnight, requiring low dose pressors. S/p X3 days of gentle diurese. Will continue to monitor, wean off pressors as tolerated for MAP of 65. Patient Failed PST yesterday, case management to follow up with insurance for possible LTAC placement. Continue daily PST as tolerated. PT eval and treat ordered. 12/04: Increased agitation and anxiety overnight, remains on buspar and seroquel, trazadone added to promote rest. Patient is now working with PT, keep patient engage and awake during the day so she can rest at night. No BM for over 5 days, BR was adjusted. Patient did not tolerate PST again yesterday, continue daily PST as tolerated. Continue to titrate pressor for MAP above 65. Pending possible LTAC placement, case management to arrange. Assessment and Plan #Septic Shock POA #Bilateral Pneumonia #Bacteremia - Presented with fevers, leukocytosis, and hypotension - COVID PCR negative - 11/04 Bcult with 3/4 group B strep bacteremia - Repeat Bculture NGTD - 11/04 2D Echo with no evidence of vegetation - ID on consult, appreciate recommendations - Patient completed IV Abx course - F/u on culture data - Trend CBC #Acute Hypoxic Respiratory Failure 11/19 #Bilateral Pleural Effusion #Right Pneumothorax-resolved #Bilateral Pneumonia - COVID PCR negative - CXR shows Bilateral opacities, may be volume overloaded - [facility] consulted, appreciate recommendations - Intubated on 11/06, ETT exchanged on 11/11 - 11/11 Bronchoscopy--Complicated by spontaneous pneumothorax - 11/11 S/p chest tube placement for right pneumothorax, removed by patient on 11/15 - 11/26 s/p Tracheostomy and PEGtube placement - This am Vent Setting:A/C-25%,6,14,400 - Continue Nebs treatment - Continue daily PST as tolerated - VAP bundle addressed - Aspiration precaution HOB above 30 - ABG and CXR per CCM - Continue SPO2 monitoring for SPO2 goal above 92% #CHF- EF 30-35% with PPM #Hypotension #Septic Kristian-resolved - SR on the monitor, HR 70-90s - 11/04 Echo-EF 30-35% - Cardiology on consult - Continue beta-charleen - Not on aspirin due to allergy - Statins resumed - Continue blood pressure monitor per protocol - Maintain MAP above 65 #Acute Blood Loss #Acute GI Bleed #Acute Microcytic Anemia - Report of melena &black tarry stools - s/p a total of 5units of PRBCs since admit - H&H remains stable post EGD - GI on consult - 11/18 EGD- Large cratered ulcer in the posterior duodenal bulb about 2 cm in diameter. Visible vessel present. Mild active oozing from the ulcer bed. A total of 3 injections were performed around the ulcer for a total of 2.5 cc of dilute epinephrine and hemostasis was obtained.--> See full report - Continue PPI and Carafate - Patient is tolerating TF - Continue to trend CBC - Transfuse for H&H less than 7 - Hold AC for now #Hypokalemia #Hyponatremia-improved - K repleted - Strict intake and output - Continue to monitor and replace electrolytes as needed - Trend BMP,mag, & phosp #Urinary Retention - Gamble reinserted on 11/19 for retention - Keep gamble for now #Acute DVT in RLE - BLE doppler + Acute DVT in the right external iliac vein, common femoral vein, and superior aspect of femoral vein - Was on Therapeutic Lovenox- held to due GI Bleed - 11/17 s/p IVC filter placement by Vascular Surg #Agitation #Acute Encephalopathy-Resolved - Awake and following commands - Continue Buspar and seroquel - CT head noted - Neurology consulted - PRN analgesia for pain management #Transaminitis/Shock Liver - Probably due to bacteria/spetic shock - Continue to Trend LFTs #Endo: h/o DM and hypothyroidism - Continue home Synthroid - Accu-Cheks every 6 - Avoid hypoglycemia The high probability of a clinically significant, sudden or life threatening deterioration of the [multi] system(s) required my full and direct attention, intervention and personal management. The aggregate critical care time was [60] minutes. This time is in addition to time spent performing reported procedures b ut includes the following: [x] Data Review and interpretation [x] Patient assessment and monitoring of vital signs [x] Documentation [x] Medication orders and management Disposition Plan: ICU Total Time Spent with Patient (Minutes): 60 History Interval history: Patient seen and examined at the bedside. Remains on the vent. Awake and alert, still following simple commands. Remains on Levophed gtt for hypotension, MAP in the 80s this am. Plan to titrate pressors for MAP> 65. Per RN patient patient was up most of the night with increased agitation and anxiety which resolved this am. Hospitalist Physical - Constitutional Vitals: Temp Pulse Resp BP Pulse Ox 97.6 F 75 16 114/71 99 12/04/21 07:49 12/04/21 08:00 12/04/21 07:00 12/04/21 08:00 12/04/21 08:00 General appearance: Present: no acute distress, other (On the vent) - EENT Eyes: Present: PERRL ENT: hearing intact - Neck Neck: Present: normal ROM - Respiratory Respiratory effort: normal Respiratory: bilateral: rhonchi - Cardiovascular Rhythm: regular Heart Sounds: Present: S1 & S2 - Extremities Extremities: no ischemia, pulses intact, pulses symmetrical Extremity abnormal: edema - Peripheral Assessment Generalized Edema Type: Non-pitting Edema Degree: 2+ Capillary Refill: < 3 seconds Skin Temperature: Warm Peripheral Pulses: within normal limits - Abdominal General gastrointestinal: soft, non-distended, normal bowel sounds - Integumentary Integumentary: Present: warm, dry - Psychiatric Psychiatric: appropriate mood/affect, cooperative - Neurologic Neurologic: moves all extremities - Allied Health Allied health notes reviewed: nursing, case management HEART Score - HEART Score Troponin: Troponin T 0.045 ng/mL (0.00-0.029) H 11/29/21 20:15 Results - Labs CBC & Chem 7: 12/03/21 04:00 12/04/21 04:00 Labs: Laboratory Last Values WBC 8.5 K/mm3 (4.5-11.0) 12/03/21 04:00 RBC 2.99 M/mm3 (3.65-5.03) L 12/03/21 04:00 Hgb 7.8 gm/dl (10.1-14.3) L 12/03/21 04:00 Hct 24.6 % (30.3-42.9) L 12/03/21 04:00 MCV 82 fl (79-97) 12/03/21 04:00 MCH 26 pg (28-32) L 12/03/21 04:00 MCHC 32 % (30-34) 12/03/21 04:00 RDW 20.2 % (13.2-15.2) H 12/03/21 04:00 Plt Count 183 K/mm3 (140-440) 12/03/21 04:00 Add Manual Diff Complete 11/16/21 15:25 Total Counted 100 11/16/21 15:25 Seg Neutrophils % Client Service Coordinator 11/06/21 15:50 Seg Neuts % (Manual) 87.0 % (40.0-70.0) H 11/16/21 15:25 Band Neutrophils % 0 % 11/16/21 15:25 Lymphocytes % (Manual) 8.0 % (13.4-35.0) L 11/16/21 15:25 Reactive Lymphs % (Man) 0 % 11/16/21 15:25 Monocytes % (Manual) 5.0 % (0.0-7.3) 11/16/21 15:25 Eosinophils % (Manual) 0 % (0.0-4.3) 11/16/21 15:25 Basophils % (Manual) 0 % (0.0-1.8) 11/16/21 15:25 Metamyelocytes % 0 % 11/16/21 15:25 Myelocytes % 0 % 11/16/21 15:25 Promyelocytes % 0 % 11/16/21 15:25 Blast Cells % 0 % 11/16/21 15:25 Nucleated RBC % Not Reportable 11/16/21 15:25 Seg Neutrophils # Man 15.0 K/mm3 (1.8-7.7) H 11/16/21 15:25 Band Neutrophils # 0.0 K/mm3 11/16/21 15:25 Lymphocytes # (Manual) 1.4 K/mm3 (1.2-5.4) 11/16/21 15:25 Abs React Lymphs (Man) 0.0 K/mm3 11/16/21 15:25 Monocytes # (Manual) 0.9 K/mm3 (0.0-0.8) H 11/16/21 15:25 Eosinophils # (Manual) 0.0 K/mm3 (0.0-0.4) 11/16/21 15:25 Basophils # (Manual) 0.0 K/mm3 (0.0-0.1) 11/16/21 15:25 Metamyelocytes # 0.0 K/mm3 11/16/21 15:25 Myelocytes # 0.0 K/mm3 11/16/21 15:25 Promyelocytes # 0.0 K/mm3 11/16/21 15:25 Blast Cells # 0.0 K/mm3 11/16/21 15:25 WBC Morphology Not Reportable 11/16/21 15:25 Hypersegmented Neuts Not Reportable 11/16/21 15:25 Hyposegmented Neuts Not Reportable 11/16/21 15:25 Hypogranular Neuts Not Reportable 11/16/21 15:25 Smudge Cells Not Reportable 11/16/21 15:25 Toxic Granulation Not Reportable 11/16/21 15:25 Toxic Vacuolation Not Reportable 11/16/21 15:25 Dohle Bodies Not Reportable 11/16/21 15:25 Pelger-Huet Anomaly Not Reportable 11/16/21 15:25 Irina Rods Not Reportable 11/16/21 15:25 Platelet Estimate Consistent w auto 11/16/21 15:25 Clumped Platelets Rare 11/16/21 15:25 Plt Clumps, EDTA Not Reportable 11/16/21 15:25 Large Platelets Not Reportable 11/16/21 15:25 Giant Platelets Not Reportable 11/16/21 15:25 Platelet Satelliting Not Reportable 11/16/21 15:25 Plt Morphology Comment Not Reportable 11/16/21 15:25 RBC Morphology Not Reportable 11/16/21 15:25 Dimorphic RBCs Not Reportable 11/16/21 15:25 Polychromasia Not Reportable 11/16/21 15:25 Hypochromasia 2+ 11/16/21 15:25 Poikilocytosis Not Reportable 11/16/21 15:25 Anisocytosis 2+ 11/16/21 15:25 Microcytosis Not Reportable 11/16/21 15:25 Macrocytosis Not Reportable 11/16/21 15:25 Spherocytes Not Reportable 11/16/21 15:25 Pappenheimer Bodies Not Reportable 11/16/21 15:25 Sickle Cells Not Reportable 11/16/21 15:25 Target Cells 2+ 11/16/21 15:25 Tear Drop Cells Not Reportable 11/16/21 15:25 Ovalocytes Not Reportable 11/16/21 15:25 Helmet Cells Not Reportable 11/16/21 15:25 [place] Bodies Not Reportable 11/16/21 15:25 [place] Rings Not Reportable 11/16/21 15:25 [place] Cells Not Reportable 11/16/21 15:25 Bite Cells Not Reportable 11/16/21 15:25 Crenated Cell Not Reportable 11/16/21 15:25 Elliptocytes Not Reportable 11/16/21 15:25 Acanthocytes (Spur) Not Reportable 11/16/21 15:25 Rouleaux Not Reportable 11/16/21 15:25 Hemoglobin C Crystals Not Reportable 11/16/21 15:25 Schistocytes Not Reportable 11/16/21 15:25 Malaria parasites Not Reportable 11/16/21 15:25 Godfrey Bodies Not Reportable 11/16/21 15:25 Hem Pathologist Commnt No 11/16/21 15:25 PT 16.9 Sec. (12.2-14.9) H 11/26/21 05:00 INR 1.24 (0.87-1.13) H 11/26/21 05:00 APTT 29.2 Sec. (24.2-36.6) 11/26/21 05:00 D-Dimer 2655.00 ng/mlDDU (0-234) H 11/11/21 04:28 ABG pH 7.449 pH Units (7.350-7.450) 11/21/21 16:00 ABG pCO2 32.1 mm Hg 11/21/21 16:00 ABG pO2 114.2 mm Hg (80.0-90.0) H 11/21/21 16:00 ABG HCO3 21.8 mmol/L (20.0-26.0) 11/21/21 16:00 ABG O2 Saturation 98.3 % (95.0-99.0) 11/21/21 16:00 ABG O2 Content 12.5 (0.0-44) 11/21/21 16:00 ABG Base Excess -1.7 mmol/L (-2.0-3.0) 11/21/21 16:00 ABG Hemoglobin 9.1 gm/dl (12.0-16.0) L 11/21/21 16:00 ABG Carboxyhemoglobin 1.9 % (0.0-5.0) 11/21/21 16:00 ABG Methemoglobin 0.5 % (0.0-1.5) 11/21/21 16:00 Oxyhemoglobin 96.0 % (95.0-99.0) 11/21/21 16:00 FiO2 30 % 11/21/21 16:00 Sodium 138 mmol/L (137-145) 12/04/21 04:00 Potassium 3.5 mmol/L (3.6-5.0) L 12/04/21 04:00 Chloride 99.4 mmol/L (98-107) 12/04/21 04:00 Carbon Dioxide 28 mmol/L (22-30) 12/04/21 04:00 Anion Gap 14 mmol/L 12/04/21 04:00 BUN 26 mg/dL (7-17) H 12/04/21 04:00 Creatinine 0.5 mg/dL (0.6-1.2) L 12/04/21 04:00 Estimated GFR > 60 ml/min 12/04/21 04:00 BUN/Creatinine Ratio 52 % 12/04/21 04:00 Glucose 151 mg/dL (65-100) H 12/04/21 04:00 POC Glucose 142 mg/dL (70-105) H 12/04/21 05:36 Lactic Acid 3.70 mmol/L (0.7-2.0) H* 11/03/21 22:32 Calcium 8.3 mg/dL (8.4-10.2) L 12/04/21 04:00 Phosphorus 3.20 mg/dL (2.5-4.5) 12/04/21 04:00 Magnesium 1.80 mg/dL (1.7-2.3) 12/04/21 04:00 Ferritin 52.6 ng/mL (10.0-200.0) 11/05/21 06:11 Total Bilirubin 0.50 mg/dL (0.1-1.2) 11/17/21 05:56 Direct Bilirubin < 0.2 mg/dL (0-0.2) 11/11/21 04:28 Indirect Bilirubin 0.1 mg/dL 11/11/21 04:28 AST 36 units/L (5-40) 11/17/21 05:56 ALT 47 units/L (7-56) 11/17/21 05:56 Alkaline Phosphatase 107 units/L (35-129) 11/17/21 05:56 Ammonia 42.0 umol/L (25-60) 11/10/21 14:08 Lactate Dehydrogenase 187 units/L (91-180) H 11/05/21 06:11 Troponin T 0.045 ng/mL (0.00-0.029) H 11/29/21 20:15 C-Reactive Protein 22.20 mg/dL (0.00-1.30) H 11/05/21 06:11 NT-Pro-B Natriuret Pep 7895 pg/mL (0-900) H 11/03/21 22:32 Total Protein 5.1 g/dL (6.3-8.2) L 11/17/21 05:56 Albumin 2.2 g/dL (3.9-5) L 11/17/21 05:56 Albumin/Globulin Ratio 0.8 % 11/17/21 05:56 Triglycerides 59 mg/dL (2-149) 11/29/21 20:15 Cholesterol 74 mg/dL (50-199) 11/29/21 20:15 LDL Cholesterol Direct 25 mg/dL (50-130) L 11/29/21 20:15 HDL Cholesterol 41 mg/dL (40-59) 11/29/21 20:15 Cholesterol/HDL Ratio 1.80 % 11/29/21 20:15 Vitamin B12 1823 pg/mL (211-911) H 11/10/21 14:08 TSH 1.510 mlU/mL (0.270-4.200) 11/10/21 14:08 Urine Color Yellow (Yellow) 11/11/21 09:00 Urine Turbidity Slightly-cloudy (Clear) 11/11/21 09:00 Urine pH 5.0 (5.0-7.0) 11/11/21 09:00 Ur Specific [place] 1.009 (1.003-1.030) 11/11/21 09:00 Urine Protein <15 mg/dl mg/dL (Negative) 11/11/21 09:00 Urine Glucose (UA) Neg mg/dL (Negative) 11/11/21 09:00 Urine Ketones Neg mg/dL (Negative) 11/11/21 09:00 Urine Blood Mod (Negative) 11/11/21 09:00 Urine Nitrite Neg (Negative) 11/11/21 09:00 Urine Bilirubin Neg (Negative) 11/11/21 09:00 Urine Urobilinogen < 2.0 mg/dL (<2.0) 11/11/21 09:00 Ur Leukocyte Esterase Neg (Negative) 11/11/21 09:00 Urine WBC (Auto) < 1.0 /HPF (0.0-6.0) 11/11/21 09:00 Urine RBC (Auto) < 1.0 /HPF (0.0-6.0) 11/11/21 09:00 Coronavirus (PCR) Negative (Negative) 11/10/21 08:30 Blood Type O POSITIVE 11/18/21 10:45 Antibody Screen Negative 11/18/21 10:45 Crossmatch See Detail 11/18/21 10:45 Gamble/IV: Voiding Method Indwelling Catheter Active Medications - Current Medications Current Medications: Generic Name Dose Route Start Last Admin Trade Name Freq PRN Reason Stop Dose Admin Acetaminophen 650 mg 11/04/21 02:03 11/23/21 16:26 Acetaminophen 325 Mg Tab PO 650 mg Q6H PRN Administration Pain MILD(1-3)/Fever >100.5/RODRIGUEZ Hydrocodone Bitart/Acetaminophen 1 each 11/21/21 10:00 12/03/21 20:48 Hydrocodone/Acetaminophen 10-325mg Tab FEEDTUBE 1 each TID YOSSI Administration Lipase/Protease/Amylase 1 each 11/08/21 11:09 Lipase 10,500/Protease 25,000/Amylase 43,750 (Units) Dr Lema FEEDTUBE PRN PRN For Clogged Feeding Tube Buspirone HCl 7.5 mg 11/17/21 22:00 12/03/21 21:33 Buspirone 5 Mg Tab PO 7.5 mg BID YOSSI Administration Dextrose 0 ml 11/10/21 10:52 11/21/21 16:27 Dextrose 10% *Hypoglycemia IV 50 ml PRN PRN Administration Hypoglycemia Fentanyl 1 applic 11/17/21 13:00 12/02/21 11:43 Fentanyl 25 Mcg/Hr Patch 72hr TD 1 applic Q3D YOSSI Administration Gabapentin 100 mg 12/01/21 10:00 12/03/21 09:30 Gabapentin 100 Mg Cap PO 100 mg QDAY YOSSI Administration Hydrophilic Ointment 1 applic 11/06/21 04:02 Lip Therapy Vaseline TP Q2HR PRN Dry Lips NORepinephrine/NS 8 MG-250 ML 8 mg in 250 mls @ 3.75 mls/hr 11/29/21 00:00 12/04/21 03:57 Norepinephrine/Ns 8 Mg-250 Ml (Double Conc) IV 6 mcg/min TITRATE YOSSI 11.25 mls/hr Administration Protocol 2 MCG/MIN Magnesium Sulfate 2 gm in 50 mls @ 25 mls/hr 12/04/21 10:00 Magnesium Sulfate 2gm/50ml IV 12/04/21 14:00 ONCE@1000 [facility] Insulin Human Lispro 0 unit 11/06/21 12:00 12/04/21 06:01 Insulin Lispro 100 Unit/Ml SUB-Q Not Given Q6HR [facility] Protocol Lansoprazole 30 mg 11/24/21 22:00 12/03/21 21:33 Lansoprazole 30 Mg Solutab FEEDTUBE 30 mg BID [facility] Administration Levothyroxine Sodium 125 mcg 11/05/21 07:00 12/04/21 05:59 Levothyroxine 125 Mcg Tab PO 125 mcg DAILY@0600 [facility] Administration Magnesium Hydroxide 30 ml 11/04/21 02:03 Magnesium Hydroxide (Mom) Oral Liqd Udc PO Q4H PRN Constipation Metoprolol Tartrate 12.5 mg 11/21/21 10:00 12/03/21 21:34 Metoprolol Tartrate 25 Mg Tab PO 12.5 mg BID [facility] Administration Multi-Ingred Cream/Lotion/Oil/Oint 1 applic 11/06/21 04:02 Mineral Oil/Petrolatum, White Ophth Oint 3.5 Gm OU Q4HR PRN Dry Eye(s) Nitroglycerin 0.4 mg 11/30/21 11:36 Nitroglycerin 0.4 Mg Tab Subl SL .Q5MIN PRN Chest Pain Ondansetron HCl 4 mg 11/04/21 02:03 11/05/21 15:48 Ondansetron 4 Mg/2 Ml Inj IV 4 mg Q8H PRN Administration Nausea And Vomiting Polyethylene Glycol 17 gm 12/02/21 10:00 12/03/21 09:22 Polyethylene Glycol 3350 17 Gm Powder PO 17 gm QDAY YOSSI Administration Potassium Chloride 40 meq 12/04/21 10:00 Potassium Chloride 20 Meq Packet FEEDTUBE 12/04/21 14:00 ONCE@1000 YOSSI Pravastatin Sodium 20 mg 11/18/21 22:00 12/04/21 05:25 Pravastatin 20 Mg Tab PO 20 mg QHS YOSSI Administration Quetiapine Fumarate 50 mg 12/01/21 22:00 12/03/21 21:33 Quetiapine 25 Mg Tab PO 50 mg QHS YOSSI Administration Senna 17.6 mg 11/08/21 22:00 12/03/21 21:33 Sennosides Oral Liqd 8.8 Mg/5 Ml Oral Liqd PO 17.6 mg Q12HR YOSSI Administration Simple Syrup 15 ml 11/08/21 11:09 Simple Syrup 15 Ml FEEDTUBE PRN PRN Hypoglycemia Simple Syrup 30 ml 11/08/21 11:09 Simple Syrup 15 Ml FEEDTUBE PRN PRN Hypoglycemia Sodium Bicarbonate 325 mg 11/08/21 11:09 Sodium Bicarbonate 325 Mg Tab FEEDTUBE PRN PRN For Clogged Feeding Tube Sodium Chloride 10 ml 11/04/21 10:00 12/03/21 21:34 Sodium Chloride 0.9% 10 Ml Flush Syringe IV 10 ml BID YOSSI Administration Sodium Chloride 10 ml 11/04/21 02:03 Sodium Chloride 0.9% 10 Ml Flush Syringe IV PRN PRN LINE FLUSH Sodium Chloride 10 ml 11/10/21 09:57 11/17/21 20:47 Sodium Chloride 0.9% 50 Ml Ivpb IV 10 ml PRN PRN Administration FLUSH Sucralfate 1 gm 11/18/21 16:30 12/03/21 21:33 Sucralfate 1 Gm/10 Ml Oral Liqd PO 1 gm ACHS YOSSI Administration Nutrition/Malnutrition Assess - Dietary Evaluation Nutrition/Malnutrition Findings: Nutrition Notes Start: 11/04/21 17:16 Freq: Status: Active Protocol: Document 12/01/21 18:39 ISABELL (Rec: 12/01/21 19:19 ISABELL [id number]) Nutrition Notes Initial or Follow up Reassessment Current Diagnosis Decubitus(Pressure Ulcer), Diabetes,Hypertension, Respiratory Failure Other Pertinent Diagnosis Bilateral Pneumonia and Pleural Effusion, R- Pneumothorax, CHF-EF, GI Bleed . Current Diet TF-Vital AF 1.2 @ 40 ml/hr ( since 11/30) Labs/Tests 12/01: Na 136, BUN 24, Glu 117 , Ca 7.5, Mg 1.6. Pertinent Medications 12/01: Levothyroxine, others nutritionally unremarkable. Height 5 ft Weight 62.4 kg [place] Body Weight (kg) 45.45 BMI 26.9 Weight change and time frame No body weight change reported . Weight Status Overweight Subjective/Other Information RD consult for routine F/U on TF assessment. Glucerna switched to Vital AF due to out of stock situation. PEG tube placed on 11/26, well tolerated. Pt still on Mechanical Ventilation. Pt has missing teerth, according to Physical Assessment History notes. Case Management note 12/01: Patient officially referred to [facility] for aggressive ventilator weaning. Percent of energy/protein needs met: Prescribed Vital AF 1.2 Tamir @ 40 ml/hr provides for energy/ protein needs (1,150 Kcal/72 g ) during LOS, 95% Kcal; 96% AA . Burn Absent Trauma Absent GI Symptoms Other Difficulty In Swallowing,Chewing Food Allergy No Skin Integrity/Comment Lower Extremities Pressure Ulcer. Current % PO Other Minimum of two criteria No #1 Nutrition Diagnosis Inadequate oral intake Diagnosis Progress(for reassessment Continues documentation) Is patient on ventilator? Yes Is Patient Ambulatory and/or Out of Bed No REE-(Wil[place]-St. Jeor-confined to bed) 1207.824 Calculation Used for Recommendations [place]-St Jeor Additional Notes Protein: 1.2-2 g/Kg; 75-125 g/ day. Fluids: 1 ml/Kcal, or as per MD. Nutrition Intervention Nutrition Support: Switch to Vital AF 1.2 Tamir @ 40 ml/hr. Flush: 70 ml water Q 4 hr, or as per MD. Kcal 1,150 Protein (gm) 72 Carbohydrates (gm) 106 Fat (gm) 52 Fluid (mL) 777 Fiber (gm) 5 % RDI: 95% Kcal; 96% AA. Goal #1 Provide at least 75% of energy /protein needs through Enteral Feeding during LOS. Goal #2 Maintain body weight within +/ -3% of admission body weight during LOS. Follow-Up By: 12/08/21 Additional Comments Continue monitoring TF tolerance and BM. <KADENLEAH De La Cruz - Last Filed: 12/05/21 07:21> Assessment and Plan Assessment and plan: I saw and evaluated the patient. I agree with the findings and the plan of care as documented in the Nurse Practitioner's~note, with the following corrections and additions. Hospitalist Physical - Constitutional Vitals: Temp Pulse Resp BP Pulse Ox 97.4 F L 64 14 90/58 98 12/05/21 03:36 12/05/21 06:15 12/05/21 06:15 12/05/21 06:15 12/05/21 06:15 HEART Score - HEART Score Troponin: Troponin T 0.045 ng/mL (0.00-0.029) H 11/29/21 20:15 Results - Labs CBC & Chem 7: 12/03/21 04:00 12/05/21 04:36 Labs: Laboratory Last Values WBC 8.5 K/mm3 (4.5-11.0) 12/03/21 04:00 RBC 2.99 M/mm3 (3.65-5.03) L 12/03/21 04:00 Hgb 7.8 gm/dl (10.1-14.3) L 12/03/21 04:00 Hct 24.6 % (30.3-42.9) L 12/03/21 04:00 MCV 82 fl (79-97) 12/03/21 04:00 MCH 26 pg (28-32) L 12/03/21 04:00 MCHC 32 % (30-34) 12/03/21 04:00 RDW 20.2 % (13.2-15.2) H 12/03/21 04:00 Plt Count 183 K/mm3 (140-440) 12/03/21 04:00 Add Manual Diff Complete 11/16/21 15:25 Total Counted 100 11/16/21 15:25 Seg Neutrophils % Client Service Coordinator 11/06/21 15:50 Seg Neuts % (Manual) 87.0 % (40.0-70.0) H 11/16/21 15:25 Band Neutrophils % 0 % 11/16/21 15:25 Lymphocytes % (Manual) 8.0 % (13.4-35.0) L 11/16/21 15:25 Reactive Lymphs % (Man) 0 % 11/16/21 15:25 Monocytes % (Manual) 5.0 % (0.0-7.3) 11/16/21 15:25 Eosinophils % (Manual) 0 % (0.0-4.3) 11/16/21 15:25 Basophils % (Manual) 0 % (0.0-1.8) 11/16/21 15:25 Metamyelocytes % 0 % 11/16/21 15:25 Myelocytes % 0 % 11/16/21 15:25 Promyelocytes % 0 % 11/16/21 15:25 Blast Cells % 0 % 11/16/21 15:25 Nucleated RBC % Not Reportable 11/16/21 15:25 Seg Neutrophils # Man 15.0 K/mm3 (1.8-7.7) H 11/16/21 15:25 Band Neutrophils # 0.0 K/mm3 11/16/21 15:25 Lymphocytes # (Manual) 1.4 K/mm3 (1.2-5.4) 11/16/21 15:25 Abs React Lymphs (Man) 0.0 K/mm3 11/16/21 15:25 Monocytes # (Manual) 0.9 K/mm3 (0.0-0.8) H 11/16/21 15:25 Eosinophils # (Manual) 0.0 K/mm3 (0.0-0.4) 11/16/21 15:25 Basophils # (Manual) 0.0 K/mm3 (0.0-0.1) 11/16/21 15:25 Metamyelocytes # 0.0 K/mm3 11/16/21 15:25 Myelocytes # 0.0 K/mm3 11/16/21 15:25 Promyelocytes # 0.0 K/mm3 11/16/21 15:25 Blast Cells # 0.0 K/mm3 11/16/21 15:25 WBC Morphology Not Reportable 11/16/21 15:25 Hypersegmented Neuts Not Reportable 11/16/21 15:25 Hyposegmented Neuts Not Reportable 11/16/21 15:25 Hypogranular Neuts Not Reportable 11/16/21 15:25 Smudge Cells Not Reportable 11/16/21 15:25 Toxic Granulation Not Reportable 11/16/21 15:25 Toxic Vacuolation Not Reportable 11/16/21 15:25 Dohle Bodies Not Reportable 11/16/21 15:25 Pelger-Huet Anomaly Not Reportable 11/16/21 15:25 Irina Rods Not Reportable 11/16/21 15:25 Platelet Estimate Consistent w auto 11/16/21 15:25 Clumped Platelets Rare 11/16/21 15:25 Plt Clumps, EDTA Not Reportable 11/16/21 15:25 Large Platelets Not Reportable 11/16/21 15:25 Giant Platelets Not Reportable 11/16/21 15:25 Platelet Satelliting Not Reportable 11/16/21 15:25 Plt Morphology Comment Not Reportable 11/16/21 15:25 RBC Morphology Not Reportable 11/16/21 15:25 Dimorphic RBCs Not Reportable 11/16/21 15:25 Polychromasia Not Reportable 11/16/21 15:25 Hypochromasia 2+ 11/16/21 15:25 Poikilocytosis Not Reportable 11/16/21 15:25 Anisocytosis 2+ 11/16/21 15:25 Microcytosis Not Reportable 11/16/21 15:25 Macrocytosis Not Reportable 11/16/21 15:25 Spherocytes Not Reportable 11/16/21 15:25 Pappenheimer Bodies Not Reportable 11/16/21 15:25 Sickle Cells Not Reportable 11/16/21 15:25 Target Cells 2+ 11/16/21 15:25 Tear Drop Cells Not Reportable 11/16/21 15:25 Ovalocytes Not Reportable 11/16/21 15:25 Helmet Cells Not Reportable 11/16/21 15:25 [place] Bodies Not Reportable 11/16/21 15:25 [place] Rings Not Reportable 11/16/21 15:25 [place] Cells Not Reportable 11/16/21 15:25 Bite Cells Not Reportable 11/16/21 15:25 Crenated Cell Not Reportable 11/16/21 15:25 Elliptocytes Not Reportable 11/16/21 15:25 Acanthocytes (Spur) Not Reportable 11/16/21 15:25 Rouleaux Not Reportable 11/16/21 15:25 Hemoglobin C Crystals Not Reportable 11/16/21 15:25 Schistocytes Not Reportable 11/16/21 15:25 Malaria parasites Not Reportable 11/16/21 15:25 Godfrey Bodies Not Reportable 11/16/21 15:25 Hem Pathologist Commnt No 11/16/21 15:25 PT 16.9 Sec. (12.2-14.9) H 11/26/21 05:00 INR 1.24 (0.87-1.13) H 11/26/21 05:00 APTT 29.2 Sec. (24.2-36.6) 11/26/21 05:00 D-Dimer 2655.00 ng/mlDDU (0-234) H 11/11/21 04:28 ABG pH 7.449 pH Units (7.350-7.450) 11/21/21 16:00 ABG pCO2 32.1 mm Hg 11/21/21 16:00 ABG pO2 114.2 mm Hg (80.0-90.0) H 11/21/21 16:00 ABG HCO3 21.8 mmol/L (20.0-26.0) 11/21/21 16:00 ABG O2 Saturation 98.3 % (95.0-99.0) 11/21/21 16:00 ABG O2 Content 12.5 (0.0-44) 11/21/21 16:00 ABG Base Excess -1.7 mmol/L (-2.0-3.0) 11/21/21 16:00 ABG Hemoglobin 9.1 gm/dl (12.0-16.0) L 11/21/21 16:00 ABG Carboxyhemoglobin 1.9 % (0.0-5.0) 11/21/21 16:00 ABG Methemoglobin 0.5 % (0.0-1.5) 11/21/21 16:00 Oxyhemoglobin 96.0 % (95.0-99.0) 11/21/21 16:00 FiO2 30 % 11/21/21 16:00 Sodium 139 mmol/L (137-145) 12/05/21 04:36 Potassium 4.0 mmol/L (3.6-5.0) 12/05/21 04:36 Chloride 102.0 mmol/L (98-107) 12/05/21 04:36 Carbon Dioxide 27 mmol/L (22-30) 12/05/21 04:36 Anion Gap 14 mmol/L 12/05/21 04:36 BUN 21 mg/dL (7-17) H 12/05/21 04:36 Creatinine 0.5 mg/dL (0.6-1.2) L 12/05/21 04:36 Estimated GFR > 60 ml/min 12/05/21 04:36 BUN/Creatinine Ratio 42 % 12/05/21 04:36 Glucose 119 mg/dL (65-100) H 12/05/21 04:36 POC Glucose 107 mg/dL (70-105) H 12/05/21 05:15 Lactic Acid 3.70 mmol/L (0.7-2.0) H* 11/03/21 22:32 Calcium 8.3 mg/dL (8.4-10.2) L 12/05/21 04:36 Phosphorus 2.90 mg/dL (2.5-4.5) 12/05/21 04:36 Magnesium 2.00 mg/dL (1.7-2.3) 12/05/21 04:36 Ferritin 52.6 ng/mL (10.0-200.0) 11/05/21 06:11 Total Bilirubin 0.50 mg/dL (0.1-1.2) 11/17/21 05:56 Direct Bilirubin < 0.2 mg/dL (0-0.2) 11/11/21 04:28 Indirect Bilirubin 0.1 mg/dL 11/11/21 04:28 AST 36 units/L (5-40) 11/17/21 05:56 ALT 47 units/L (7-56) 11/17/21 05:56 Alkaline Phosphatase 107 units/L (35-129) 11/17/21 05:56 Ammonia 42.0 umol/L (25-60) 11/10/21 14:08 Lactate Dehydrogenase 187 units/L (91-180) H 11/05/21 06:11 Troponin T 0.045 ng/mL (0.00-0.029) H 11/29/21 20:15 C-Reactive Protein 22.20 mg/dL (0.00-1.30) H 11/05/21 06:11 NT-Pro-B Natriuret Pep 7895 pg/mL (0-900) H 11/03/21 22:32 Total Protein 5.1 g/dL (6.3-8.2) L 11/17/21 05:56 Albumin 2.2 g/dL (3.9-5) L 11/17/21 05:56 Albumin/Globulin Ratio 0.8 % 11/17/21 05:56 Triglycerides 59 mg/dL (2-149) 11/29/21 20:15 Cholesterol 74 mg/dL (50-199) 11/29/21 20:15 LDL Cholesterol Direct 25 mg/dL (50-130) L 11/29/21 20:15 HDL Cholesterol 41 mg/dL (40-59) 11/29/21 20:15 Cholesterol/HDL Ratio 1.80 % 11/29/21 20:15 Vitamin B12 1823 pg/mL (211-911) H 11/10/21 14:08 TSH 1.510 mlU/mL (0.270-4.200) 11/10/21 14:08 Urine Color Yellow (Yellow) 11/11/21 09:00 Urine Turbidity Slightly-cloudy (Clear) 11/11/21 09:00 Urine pH 5.0 (5.0-7.0) 11/11/21 09:00 Ur Specific [place] 1.009 (1.003-1.030) 11/11/21 09:00 Urine Protein <15 mg/dl mg/dL (Negative) 11/11/21 09:00 Urine Glucose (UA) Neg mg/dL (Negative) 11/11/21 09:00 Urine Ketones Neg mg/dL (Negative) 11/11/21 09:00 Urine Blood Mod (Negative) 11/11/21 09:00 Urine Nitrite Neg (Negative) 11/11/21 09:00 Urine Bilirubin Neg (Negative) 11/11/21 09:00 Urine Urobilinogen < 2.0 mg/dL (<2.0) 11/11/21 09:00 Ur Leukocyte Esterase Neg (Negative) 11/11/21 09:00 Urine WBC (Auto) < 1.0 /HPF (0.0-6.0) 11/11/21 09:00 Urine RBC (Auto) < 1.0 /HPF (0.0-6.0) 11/11/21 09:00 Coronavirus (PCR) Negative (Negative) 11/10/21 08:30 Blood Type O POSITIVE 11/18/21 10:45 Antibody Screen Negative 11/18/21 10:45 Crossmatch See Detail 11/18/21 10:45 Gamble/IV: Voiding Method Indwelling Catheter Active Medications - Current Medications Current Medications: Generic Name Dose Route Start Last Admin Trade Name Freq PRN Reason Stop Dose Admin Hydrocodone Bitart/Acetaminophen 1 each 11/21/21 10:00 12/04/21 21:28 Hydrocodone/Acetaminophen 10-325mg Tab FEEDTUBE 1 each TID YOSSI Administration Lipase/Protease/Amylase 1 each 11/08/21 11:09 Lipase 10,500/Protease 25,000/Amylase 43,750 (Units) Dr Lema FEEDTUBE PRN PRN For Clogged Feeding Tube Buspirone HCl 7.5 mg 11/17/21 22:00 12/04/21 21:27 Buspirone 5 Mg Tab PO 7.5 mg BID YOSSI Administration Dextrose 0 ml 11/10/21 10:52 11/21/21 16:27 Dextrose 10% *Hypoglycemia IV 50 ml PRN PRN Administration Hypoglycemia Docusate Sodium 100 mg 12/04/21 11:00 12/04/21 21:26 Docusate Sodium 100 Mg/10 Ml Oral Liqd PO 100 mg BID YOSSI Administration Fentanyl 1 applic 11/17/21 13:00 12/02/21 11:43 Fentanyl 25 Mcg/Hr Patch 72hr TD 1 applic Q3D YOSSI Administration Gabapentin 100 mg 12/01/21 10:00 12/04/21 10:21 Gabapentin 100 Mg Cap PO 100 mg QDAY YOSSI Administration Hydrophilic Ointment 1 applic 11/06/21 04:02 Lip Therapy Vaseline TP Q2HR PRN Dry Lips NORepinephrine/NS 8 MG-250 ML 8 mg in 250 mls @ 3.75 mls/hr 11/29/21 00:00 12/05/21 06:34 Norepinephrine/Ns 8 Mg-250 Ml (Double Conc) IV 4 mcg/min TITRATE YOSSI 7.5 mls/hr Administration Protocol 2 MCG/MIN Insulin Human Lispro 0 unit 11/06/21 12:00 02/18/22 06:22 Insulin Lispro 100 Unit/Ml SUB-Q Not Given Q6HR [facility] Protocol Lansoprazole 30 mg 11/24/21 22:00 12/04/21 21:28 Lansoprazole 30 Mg Solutab FEEDTUBE 30 mg BID YOSSI Administration Levothyroxine Sodium 125 mcg 11/05/21 07:00 12/05/21 06:21 Levothyroxine 125 Mcg Tab PO 125 mcg DAILY@0600 YOSSI Administration Metoprolol Tartrate 12.5 mg 11/21/21 10:00 12/04/21 21:26 Metoprolol Tartrate 25 Mg Tab PO 12.5 mg BID YOSSI Administration Multi-Ingred Cream/Lotion/Oil/Oint 1 applic 11/06/21 04:02 Mineral Oil/Petrolatum, White Ophth Oint 3.5 Gm OU Q4HR PRN Dry Eye(s) Nitroglycerin 0.4 mg 11/30/21 11:36 Nitroglycerin 0.4 Mg Tab Subl SL .Q5MIN PRN Chest Pain Polyethylene Glycol 17 gm 12/02/21 10:00 12/04/21 10:20 Polyethylene Glycol 3350 17 Gm Powder PO 17 gm QDAY YOSSI Administration Pravastatin Sodium 20 mg 11/18/21 22:00 12/04/21 21:28 Pravastatin 20 Mg Tab PO 20 mg QHS YOSSI Administration Quetiapine Fumarate 50 mg 12/01/21 22:00 12/04/21 21:28 Quetiapine 25 Mg Tab PO 50 mg QHS YOSSI Administration Senna 17.6 mg 11/08/21 22:00 12/04/21 10:20 Sennosides Oral Liqd 8.8 Mg/5 Ml Oral Liqd PO 17.6 mg Q12HR YOSSI Administration Simple Syrup 15 ml 11/08/21 11:09 Simple Syrup 15 Ml FEEDTUBE PRN PRN Hypoglycemia Simple Syrup 30 ml 11/08/21 11:09 Simple Syrup 15 Ml FEEDTUBE PRN PRN Hypoglycemia Sodium Bicarbonate 325 mg 11/08/21 11:09 Sodium Bicarbonate 325 Mg Tab FEEDTUBE PRN PRN For Clogged Feeding Tube Sodium Chloride 10 ml 11/04/21 10:00 12/05/21 06:22 Sodium Chloride 0.9% 10 Ml Flush Syringe IV 10 ml BID YOSSI Administration Sodium Chloride 10 ml 11/04/21 02:03 Sodium Chloride 0.9% 10 Ml Flush Syringe IV PRN PRN LINE FLUSH Sodium Chloride 10 ml 11/10/21 09:57 11/17/21 20:47 Sodium Chloride 0.9% 50 Ml Ivpb IV 10 ml PRN PRN Administration FLUSH Sucralfate 1 gm 11/18/21 16:30 12/05/21 06:23 Sucralfate 1 Gm/10 Ml Oral Liqd PO 1 gm ACHS YOSSI Administration Trazodone HCl 50 mg 12/04/21 22:00 12/04/21 21:31 Trazodone 50 Mg Tab PO 50 mg QHS YOSSI Administration Nutrition/Malnutrition Assess - Dietary Evaluation Nutrition/Malnutrition Findings: Nutrition Notes Start: 11/04/21 17:16 Freq: Status: Active Protocol: Document 12/01/21 18:39 ISABELL (Rec: 12/01/21 19:19 ISABELL [id number]) Nutrition Notes Initial or Follow up Reassessment Current Diagnosis Decubitus(Pressure Ulcer), Diabetes,Hypertension, Respiratory Failure Other Pertinent Diagnosis Bilateral Pneumonia and Pleural Effusion, R- Pneumothorax, CHF-EF, GI Bleed . Current Diet TF-Vital AF 1.2 @ 40 ml/hr ( since 11/30) Labs/Tests 12/01: Na 136, BUN 24, Glu 117 , Ca 7.5, Mg 1.6. Pertinent Medications 12/01: Levothyroxine, others nutritionally unremarkable. Height 5 ft Weight 62.4 kg [place] Body Weight (kg) 45.45 BMI 26.9 Weight change and time frame No body weight change reported . Weight Status Overweight Subjective/Other Information RD consult for routine F/U on TF assessment. Glucerna switched to Vital AF due to out of stock situation. PEG tube placed on 11/26, well tolerated. Pt still on Mechanical Ventilation. Pt has missing teerth, according to Physical Assessment History notes. Case Management note 12/01: Patient officially referred to [facility] for aggressive ventilator weaning. Percent of energy/protein needs met: Prescribed Vital AF 1.2 Tamir @ 40 ml/hr provides for energy/ protein needs (1,150 Kcal/72 g ) during LOS, 95% Kcal; 96% AA . Burn Absent Trauma Absent GI Symptoms Other Difficulty In Swallowing,Chewing Food Allergy No Skin Integrity/Comment Lower Extremities Pressure Ulcer. Current % PO Other Minimum of two criteria No #1 Nutrition Diagnosis Inadequate oral intake Diagnosis Progress(for reassessment Continues documentation) Is patient on ventilator? Yes Is Patient Ambulatory and/or Out of Bed No REE-([facility]-confined to bed) 6885.826 Calculation Used for Recommendations [facility] Additional Notes Protein: 1.2-2 g/Kg; 75-125 g/ day. Fluids: 1 ml/Kcal, or as per MD. Nutrition Intervention Nutrition Support: Switch to Vital AF 1.2 Tamir @ 40 ml/hr. Flush: 70 ml water Q 4 hr, or as per MD. Kcal 1,150 Protein (gm) 72 Carbohydrates (gm) 106 Fat (gm) 52 Fluid (mL) 777 Fiber (gm) 5 % RDI: 95% Kcal; 96% AA. Goal #1 Provide at least 75% of energy /protein needs through Enteral Feeding during LOS. Goal #2 Maintain body weight within +/ -3% of admission body weight during LOS. Follow-Up By: 12/08/21 Additional Comments Continue monitoring TF tolerance and BM.
[2021-12-04] MEDS: HYDROcodone/ACETAMINOPHEN 10-325MG TAB FEEDTUBE SCH ×3 (10:19→21:28)
[2021-12-04] MEDS: SENNOSIDES ORAL LIQD 8.8 MG/5 ML ORAL LIQD PO SCH (10:20)
[2021-12-04] MEDS: POLYETHYLENE GLYCOL 3350 17 GM POWDER PO SCH (10:20)
[2021-12-04] MEDS: busPIRone 5 MG TAB PO SCH ×2 (10:20→21:27)
[2021-12-04] MEDS: SUCRALFATE 1 GM/10 ML ORAL LIQD PO SCH ×4 (10:20→21:28)
[2021-12-04] MEDS: GABAPENTIN 100 MG CAP PO SCH (10:21)
[2021-12-04] MEDS: METOPROLOL TARTRATE 25 MG TAB PO SCH ×2 (10:21→21:26)
[2021-12-04] MEDS: LANSOPRAZOLE 30 MG SOLUTAB FEEDTUBE SCH ×2 (10:21→21:28)
[2021-12-04] MEDS: DOCUSATE SODIUM 100 MG/10 ML ORAL LIQD PO SCH ×2 (10:28→21:26)
--- NOTE | 2021-12-04 20:01 | XRay Report ---
ABDOMEN 1 VIEW INDICATION / CLINICAL INFORMATION: distended abdomen. COMPARISON: KUB from 11/25/2021. FINDINGS: TUBES / LINES: None. BOWEL GAS PATTERN: There is mild distention of the colon. A large amount of stool is seen along the s igmoid colon/rectum. Nonspecific mild small bowel dilatation is seen along the midline of the upper p isaiah. No other significant abnormality. FREE AIR / EXTRALUMINAL GAS: None seen. ADDITIONAL FINDINGS: Unchanged positioning of the IVC filter. The bones are unchanged. Bibasilar pleu ral-parenchymal opacities in the lower chest are again noted. IMPRESSION: Findings suggestive of constipation with mild colonic/small bowel distention. Signer Name: Osiel Kirk MD Signed: 12/04/2021 7:57 PM Workstation Name: [id number]
[2021-12-04] MEDS: QUEtiapine 25 MG TAB PO SCH (21:28)
[2021-12-04] MEDS: traZODone 50 MG TAB PO SCH (21:31)
[2021-12-05 05:48] LABS: Blood Urea Nitrogen 21 mg/dL (7-17); Calcium 8.3 mg/dL (8.4-10.2); Hemolysis Index 0
[2021-12-05 05:51] LABS: BUN/Creatinine Ratio 42
[2021-12-05] MEDS: INSULIN LISPRO 100 UNIT/ML SUB-Q SCH ×3 (06:21→17:48)
[2021-12-05] MEDS: LEVOTHYROXINE 125 MCG TAB PO SCH (06:21)
[2021-12-05] MEDS: SUCRALFATE 1 GM/10 ML ORAL LIQD PO SCH ×4 (06:23→21:25)
[2021-12-05] MEDS: NORepinephrine/NS 8 MG-250 ML 8 MG/250 ML INFUS..BTL IV SCH ×2 (06:34→20:11)
[2021-12-05] MEDS: HYDROcodone/ACETAMINOPHEN 10-325MG TAB FEEDTUBE SCH ×2 (08:29→21:24)
[2021-12-05] MEDS: ONDANSETRON 4 MG/2 ML INJ IV PRN (09:27)
[2021-12-05] MEDS: fentaNYL 25 MCG/HR PATCH 72HR TD SCH (09:48)
[2021-12-05] MEDS: GABAPENTIN 100 MG CAP PO SCH (09:49)
[2021-12-05] MEDS: busPIRone 5 MG TAB PO SCH ×2 (09:50→21:18)
[2021-12-05] MEDS: LANSOPRAZOLE 30 MG SOLUTAB FEEDTUBE SCH ×2 (09:51→21:23)
[2021-12-05 10:58] LABS: Hematocrit 24.6 % (30.3-42.9); Hemoglobin 8.1 gm/dl (10.1-14.3); Mean Corpuscular HGB Conc 33 % (30-34); Mean Corpuscular Volume 83 fl (79-97); Platelet Count 200 K/mm3 (140-440); Red Blood Count 2.98 M/mm3 (3.65-5.03)
[2021-12-05 11:05] LABS: Red Cell Distribution Width 20.8 % (13.2-15.2)
--- NOTE | 2021-12-05 11:58 | Progress Note ---
<LONNIE MAURICE - Last Filed: 12/05/21 17:47> Assessment and Plan Assessment and plan: This is a 81-year-old female with known history of diabetes mellitus, hypertension, PPM, and arthritis admitted for sepsis and acute hypoxia respiratory failure 2/2 bilateral pneumonia requiring intubation and ventilatory support Hospital Course to date: 11/04/2021: Empiric therapy with iv levaquin/vancomycin. COVID PCR pending. Will consult ID. PCCM consulted, will follow recs. Hypotensive this AM, ordered bolus and fluids at 150 cc/hr. May require pressor support if bp does not improve. 11/05/2021: GBS on bcx +, currently on rocephin IV. Currently on bipap due to respiratory distress overnight. Worsening BL opacities on CXR. May be volume overload vs pneumonia. Unfortunately bp too low for lasix at this point. WIll continue levophed and bipap. Once able to tolerate, may do trial of albumin/lasi x. Call attempt made to Niraj, no response. Will try again tomorrow to update. 11/06/2021: Decompensated overnight requiring intubation. CXR shows worsening interstitial infiltrates. Currenlty on dopamine, levophed, vasopressin. PICC line ordered. Advised RN to place gamble for I/O monitoring. Would benefit from diuresis but very volume overloaded. Prognosis guarded 11/08: Off sedation this am, remains unresponsive only grimace to pain. Hold all sedatives agents for now, patient is off pressors this am. Hypernatremia from today's lab- D5W X1bag, and low K repleted, repeat lab in the am. Severe constipation also noted from KUB, BR added. 11/09: Sudden SPO2 drop in the 60s this am. Patient was manually bagged and deep suctioned. Patient is currently stable on the vent, repeat CXR with no significant change. D/w CCM Mucomyst and brochodilator added. Patient mentation is unchanged, continue to hold off on sedative agents. Neurology consulted. 11/10: Acute DVT noted on bilateral lower extremity Doppler ultrasound therefore she was started on Lovenox treatment dose. Failed SBT. Hypernatremia and hyperchloremia noted, free water flush adjusted. 11/11: Patient noted to be febrile with increasing of the cytosis, UA/BC sent and CXR ordered. ID escalated antibiotics to cefepime. CXR demonstrated mucous plug, bedside bronchoscopy was performed and O ETT was changed over bougie from 6 cm to 7.5. Patient was noted to have a pneumothorax postprocedure and chest tube was placed. Family updated by [facility]. Free water flush increased and will add Jaswant supplementation. 11/12: Patient not noted to follow commands, hypernatremia worsen/persist, increasing free water flush, potassium and magnesium and phosphorus repleted. Hemoglobin noted to be 7.1/24.5 from 7.03/12 yesterday. We will continue to trend and monitor. Vent changes per [facility]. Repeat CXR showed no residual pneumo thorax. Consider waterseal tomorrow. Given persistent leukocytosis antibiotics escalated to cefepime per ID. 11/13: Remains on cefepime and vancomycin, vent changes per [facility]. Anemia noted and given 1 unit PRBC. And beta-charleen held in setting of Levophed drip infusing. Remains on fentanyl drip. 11/14: Patient put on CPAP trial by [facility], will continue chest tube until after extubation. Will rest on assist control. CT brain was cancelled by [facility] and reordered. 11/15: Patient removed chest tube overnight. Will obtain cxr. remains on low dose levo. CTH completed with no acute findings. RT to place on CPAP. 11/16: Hypernatremia/hyperchloremia noted on the increase of day water flushes. Anemia noted and ordered PRBC. asked RT to place on cpap but not done yet 11/17: Patient remains on the vent, awake and following commands. H&H stable s/p 2units PRBCs. GI on consult, no intervention at this time. Will continue protonix gtt and serial H&H Q6hrs. Keep patient NPO for now, D5w added for hypernatremia and NPO status. Plan for IVC filter placement today by Vascular. 11/18: Patient is s/p IVC filter. H&H continue to trend down, hbg 6.1 this am, 1 unit of PRBCs ordered. Plan for possible EGD today by GI. Keep patient NPO, continue PPI drip and serial H&H Q6hrs. Electrolytes repleted, repeat lab in the am 11/19: S/p EGD- larger duodenal ulcer noted, see operative note. GI recommendat ions noted also noted. H&H stable this am. Keep patient on protonix gtt for now. Will keep patient NPO, continue IVF and serial H&H for now. Electrolytes repleted, repeat labs in the am 2/3: Very agitated and restless this am, fentanyl gtt resumed. Patient remains on protonix gtt, H&H remains stable. Will switch protonix gtt to IV BID, continue carafate and okay to resume meds at this time. Will F/u with GI to see if TF can be resumed. Gamble was reinserted overnight for retention. Electrolytes repleted, repeat in the am. Plan for possible PST today for possible extubation per CCM. 11/21: Patient is now on seroquel and patient's home buspar resumed. Patient more calm this morning, fentanyl gtt is off. H&H remains stable and patient is tolerating TF. Patient had a runs of Vtach/PVCs this am, BB added per Cardio. Continue daily PS and wean trial for possible extubation. 11/22: Back on fentanyl gtt overnight , RASS o to -1, following commands. Patient failed PST this am due to increased work of breathing and low SPO2, ABG pending. Patient is also with worsen pitting edema, lasix is still on hold. Will discuss with cardio and CCM to possibly resume lasix. 11/23: MARIA DEL CARMEN overnight. Patient failed PST again this am. Per CCM plan for possible trach and PEG, hold off on IV lasix for now. General surgery consulted and family is aware of possible Trach and PEG. 11/24: Trach/PEG pending this week, continue SBT/SAT as tolerated. No acute events reported overnight. 11/25: Patient was n.p.o. overnight and will remain n.p.o. tonight for trach/PEG tomorrow morning. She failed to support trial again. KUB obtained due to distended belly. 11/26: Patient scheduled for tracheostomy and PEG tube placement today, has been n.p.o. since midnight. No acute events reported overnight. [facility] ordered rosalinda thicone scheduled. 11/27: No acute events reported overnight, patient received trach/PEG yesterday. Has been on feedings since last night. Still awaiting LTAC placement. 11/28: Patient magnesium repleted, repeat a.m. labs, SBT 11/29: Patient complains of chest pain but ECG obtained which showed no acute findings, ordered troponin. Patient failed CPAP yesterday and was trialed again today. levophed was restarted but will aggressively wean 11/30: Patient failed SBT. Continue supportive care. Started gabapentin today 12/01: MARIA DEL CARMEN overnight. Continue daily PST. Case management to arrange possible placement 12/02: Report of dark stools overnight, patient is hemodynamically stable. H&H stable, patient is on PPI. Will continue to trend H&H. Continue daily PST as tolerated. Awaiting LTAC vs SNF placement. 12/03: Hypotensive overnight, requiring low dose pressors. S/p X3 days of gentle diurese. Will continue to monitor, wean off pressors as tolerated for MAP of 65. Patient Failed PST yesterday, case management to follow up with insurance for possible LTAC placement. Continue daily PST as tolerated. PT eval and treat ordered. 12/04: Increased agitation and anxiety overnight, remains on buspar and seroquel, trazadone added to promote rest. Patient is now working with PT, keep patient engage and awake during the day so she can rest at night. No BM for over 5 days, BR was adjusted. Patient did not tolerate PST again yesterday, continue daily PST as tolerated. Continue to titrate pressor for MAP above 65. Pending possible LTAC placement, case management to arrange. 12/05: Still not getting much rest overnight, will add melatonin for sleep. Continue to engage patient during the day and promote rest at night. TF was held due to concern for possible bleeding, H&H remains stable and stools normal this am. Resume TF and continue PPI and carafate. Remains on low dose levophed, titrate as tolerated. Continue daily PST. Possible LTAC placement, awaiting approval. Assessment and Plan #Septic Shock POA #Bilateral Pneumonia #Bacteremia - Presented with fevers, leukocytosis, and hypotension - COVID PCR negative - 11/04 Bcult with 3/4 group B strep bacteremia - Repeat Bculture NGTD - 11/04 2D Echo with no evidence of vegetation - ID on consult, appreciate recommendations - Patient completed IV Abx course - F/u on culture data - Trend CBC #Acute Hypoxic Respiratory Failure 11/19 #Bilateral Pleural Effusion #Right Pneumothorax-resolved #Bilateral Pneumonia - COVID PCR negative - CXR shows Bilateral opacities, may be volume overloaded - CCM consulted, appreciate recommendations - Intubated on 11/06, ETT exchanged on 11/11 - 11/11 Bronchoscopy--Complicated by spontaneous pneumothorax - 11/11 S/p chest tube placement for right pneumothorax, removed by patient on 11/15 - 11/26 s/p Tracheostomy and PEGtube placement - This am Vent Setting:CPAP-25%,6 PS-14 - Continue Nebs treatment - Continue daily PST as tolerated - VAP bundle addressed - Aspiration precaution HOB above 30 - ABG and CXR per CCM - Continue SPO2 monitoring for SPO2 goal above 92% #CHF- EF 30-35% with PPM #Hypotension #Septic Kristian-resolved - SR on the monitor, HR 70-90s - 11/04 Echo-EF 30-35% - Cardiology on consult - Continue beta-charleen - Not on aspirin due to allergy - Statins resumed - Continue blood pressure monitor per protocol - Maintain MAP above 65 #Acute Blood Loss #Acute GI Bleed #Acute Microcytic Anemia - Report of melena &black tarry stools - s/p a total of 5units of PRBCs since admit - H&H remains stable post EGD - GI on consult - 11/18 EGD- Large cratered ulcer in the posterior duodenal bulb about 2 cm in diameter. Visible vessel present. Mild active oozing from the ulcer bed. A total of 3 injections were performed around the ulcer for a total of 2.5 cc of dilute epinephrine and hemostasis was obtained.--> See full report - Continue PPI and Carafate - Patient is tolerating TF - Continue to trend CBC - Transfuse for H&H less than 7 - Hold AC for now #Hypokalemia- resolved #Hyponatremia-improved - Strict intake and output - Continue to monitor and replace electrolytes as needed - Trend BMP,mag, & phosp #Urinary Retention - Gamble reinserted on 11/19 for retention - Keep gamble for now #Acute DVT in RLE - BLE doppler + Acute DVT in the right external iliac vein, common femoral vein, and superior aspect of femoral vein - Was on Therapeutic Lovenox- held to due GI Bleed - 11/17 s/p IVC filter placement by Vascular Surg #Agitation #Acute Encephalopathy-Resolved - Awake and following commands - Continue Buspar and seroquel - CT head noted - Neurology consulted - PRN analgesia for pain management #Transaminitis/Shock Liver - Probably due to bacteria/spetic shock - Continue to Trend LFTs #Endo: h/o DM and hypothyroidism - Continue home Synthroid - Accu-Cheks every 6 - Avoid hypoglycemia The high probability of a clinically significant, sudden or life threatening deterioration of the [multi] system(s) required my full and direct attention, intervention and personal management. The aggregate critical care time was [60] minutes. This time is in addition to time spent performing reported procedures but includes the following: [x] Data Review and interpretation [x] Patient assessment and monitoring of vital signs [x] Documentation [x] Medication orders and management Disposition Plan: ICU Total Time Spent with Patient (Minutes): 60 History Interval history: Patient seen and examined at the bedside. Remains on the vent. Awake and alert, still following simple commands. Remains on Levophed gtt for hypotension. Per RN, patient TF was held overnight due to black stools and she also stated that patient did not get much rest overnight due to increased agitation and anxiety Hospitalist Physical - Constitutional Vitals: Temp Pulse Resp BP Pulse Ox 98.0 F 73 25 H 89/55 99 12/05/21 11:31 12/05/21 11:30 12/05/21 11:30 12/05/21 11:30 12/05/21 11:30 General appearance: Present: no acute distress, other (Trah and on the vent) - EENT Eyes: Present: PERRL, EOM intact ENT: hearing intact - Neck Neck: Present: normal ROM - Respiratory Respiratory effort: normal Respiratory: bilateral: rhonchi - Cardiovascular Rhythm: regular Heart Sounds: Present: S1 & S2 - Extremities Extremities: no ischemia, pulses intact, pulses symmetrical Extremity abnormal: edema - Peripheral Assessment Generalized Edema Type: Non-pitting Edema Degree: 1+ Capillary Refill: < 3 seconds Skin Temperature: Warm Peripheral Pulses: within normal limits - Abdominal General gastrointestinal: soft, non-distended, normal bowel sounds - Integumentary Integumentary: Present: warm, dry - Psychiatric Psychiatric: appropriate mood/affect, cooperative - Neurologic Neurologic: moves all extremities - Allied Health Allied health notes reviewed: nursing, case management HEART Score - HEART Score Troponin: Troponin T 0.045 ng/mL (0.00-0.029) H 11/29/21 20:15 Results - Labs CBC & Chem 7: 12/05/21 10:40 12/05/21 04:36 Labs: Laboratory Last Values WBC 9.3 K/mm3 (4.5-11.0) 12/05/21 10:40 RBC 2.98 M/mm3 (3.65-5.03) L 12/05/21 10:40 Hgb 8.1 gm/dl (10.1-14.3) L 12/05/21 10:40 Hct 24.6 % (30.3-42.9) L 12/05/21 10:40 MCV 83 fl (79-97) 12/05/21 10:40 MCH 27 pg (28-32) L 12/05/21 10:40 MCHC 33 % (30-34) 12/05/21 10:40 RDW 20.8 % (13.2-15.2) H 12/05/21 10:40 Plt Count 200 K/mm3 (140-440) 12/05/21 10:40 Add Manual Diff Complete 11/16/21 15:25 Total Counted 100 11/16/21 15:25 Seg Neutrophils % Car Pre Cooler 11/06/21 15:50 Seg Neuts % (Manual) 87.0 % (40.0-70.0) H 11/16/21 15:25 Band Neutrophils % 0 % 11/16/21 15:25 Lymphocytes % (Manual) 8.0 % (13.4-35.0) L 11/16/21 15:25 Reactive Lymphs % (Man) 0 % 11/16/21 15:25 Monocytes % (Manual) 5.0 % (0.0-7.3) 11/16/21 15:25 Eosinophils % (Manual) 0 % (0.0-4.3) 11/16/21 15:25 Basophils % (Manual) 0 % (0.0-1.8) 11/16/21 15:25 Metamyelocytes % 0 % 11/16/21 15:25 Myelocytes % 0 % 11/16/21 15:25 Promyelocytes % 0 % 11/16/21 15:25 Blast Cells % 0 % 11/16/21 15:25 Nucleated RBC % Not Reportable 11/16/21 15:25 Seg Neutrophils # Man 15.0 K/mm3 (1.8-7.7) H 11/16/21 15:25 Band Neutrophils # 0.0 K/mm3 11/16/21 15:25 Lymphocytes # (Manual) 1.4 K/mm3 (1.2-5.4) 11/16/21 15:25 Abs React Lymphs (Man) 0.0 K/mm3 11/16/21 15:25 Monocytes # (Manual) 0.9 K/mm3 (0.0-0.8) H 11/16/21 15:25 Eosinophils # (Manual) 0.0 K/mm3 (0.0-0.4) 11/16/21 15:25 Basophils # (Manual) 0.0 K/mm3 (0.0-0.1) 11/16/21 15:25 Metamyelocytes # 0.0 K/mm3 11/16/21 15:25 Myelocytes # 0.0 K/mm3 11/16/21 15:25 Promyelocytes # 0.0 K/mm3 11/16/21 15:25 Blast Cells # 0.0 K/mm3 11/16/21 15:25 WBC Morphology Not Reportable 11/16/21 15:25 Hypersegmented Neuts Not Reportable 11/16/21 15:25 Hyposegmented Neuts Not Reportable 11/16/21 15:25 Hypogranular Neuts Not Reportable 11/16/21 15:25 Smudge Cells Not Reportable 11/16/21 15:25 Toxic Granulation Not Reportable 11/16/21 15:25 Toxic Vacuolation Not Reportable 11/16/21 15:25 Dohle Bodies Not Reportable 11/16/21 15:25 Pelger-Huet Anomaly Not Reportable 11/16/21 15:25 Irina Rods Not Reportable 11/16/21 15:25 Platelet Estimate Consistent w auto 11/16/21 15:25 Clumped Platelets Rare 11/16/21 15:25 Plt Clumps, EDTA Not Reportable 11/16/21 15:25 Large Platelets Not Reportable 11/16/21 15:25 Giant Platelets Not Reportable 11/16/21 15:25 Platelet Satelliting Not Reportable 11/16/21 15:25 Plt Morphology Comment Not Reportable 11/16/21 15:25 RBC Morphology Not Reportable 11/16/21 15:25 Dimorphic RBCs Not Reportable 11/16/21 15:25 Polychromasia Not Reportable 11/16/21 15:25 Hypochromasia 2+ 11/16/21 15:25 Poikilocytosis Not Reportable 11/16/21 15:25 Anisocytosis 2+ 11/16/21 15:25 Microcytosis Not Reportable 11/16/21 15:25 Macrocytosis Not Reportable 11/16/21 15:25 Spherocytes Not Reportable 11/16/21 15:25 Pappenheimer Bodies Not Reportable 11/16/21 15:25 Sickle Cells Not Reportable 11/16/21 15:25 Target Cells 2+ 11/16/21 15:25 Tear Drop Cells Not Reportable 11/16/21 15:25 Ovalocytes Not Reportable 11/16/21 15:25 Helmet Cells Not Reportable 11/16/21 15:25 [place] Bodies Not Reportable 11/16/21 15:25 [place] Rings Not Reportable 11/16/21 15:25 [place] Cells Not Reportable 11/16/21 15:25 Bite Cells Not Reportable 11/16/21 15:25 Crenated Cell Not Reportable 11/16/21 15:25 Elliptocytes Not Reportable 11/16/21 15:25 Acanthocytes (Spur) Not Reportable 11/16/21 15:25 Rouleaux Not Reportable 11/16/21 15:25 Hemoglobin C Crystals Not Reportable 11/16/21 15:25 Schistocytes Not Reportable 11/16/21 15:25 Malaria parasites Not Reportable 11/16/21 15:25 Godfrey Bodies Not Reportable 11/16/21 15:25 Hem Pathologist Commnt No 11/16/21 15:25 PT 16.9 Sec. (12.2-14.9) H 11/26/21 05:00 INR 1.24 (0.87-1.13) H 11/26/21 05:00 APTT 29.2 Sec. (24.2-36.6) 11/26/21 05:00 D-Dimer 2655.00 ng/mlDDU (0-234) H 11/11/21 04:28 ABG pH 7.449 pH Units (7.350-7.450) 11/21/21 16:00 ABG pCO2 32.1 mm Hg 11/21/21 16:00 ABG pO2 114.2 mm Hg (80.0-90.0) H 11/21/21 16:00 ABG HCO3 21.8 mmol/L (20.0-26.0) 11/21/21 16:00 ABG O2 Saturation 98.3 % (95.0-99.0) 11/21/21 16:00 ABG O2 Content 12.5 (0.0-44) 11/21/21 16:00 ABG Base Excess -1.7 mmol/L (-2.0-3.0) 11/21/21 16:00 ABG Hemoglobin 9.1 gm/dl (12.0-16.0) L 11/21/21 16:00 ABG Carboxyhemoglobin 1.9 % (0.0-5.0) 11/21/21 16:00 ABG Methemoglobin 0.5 % (0.0-1.5) 11/21/21 16:00 Oxyhemoglobin 96.0 % (95.0-99.0) 11/21/21 16:00 FiO2 30 % 11/21/21 16:00 Sodium 139 mmol/L (137-145) 12/05/21 04:36 Potassium 4.0 mmol/L (3.6-5.0) 12/05/21 04:36 Chloride 102.0 mmol/L (98-107) 12/05/21 04:36 Carbon Dioxide 27 mmol/L (22-30) 12/05/21 04:36 Anion Gap 14 mmol/L 12/05/21 04:36 BUN 21 mg/dL (7-17) H 12/05/21 04:36 Creatinine 0.5 mg/dL (0.6-1.2) L 12/05/21 04:36 Estimated GFR > 60 ml/min 12/05/21 04:36 BUN/Creatinine Ratio 42 % 12/05/21 04:36 Glucose 119 mg/dL (65-100) H 12/05/21 04:36 POC Glucose 110 mg/dL (70-105) H 12/05/21 11:12 Lactic Acid 3.70 mmol/L (0.7-2.0) H* 11/03/21 22:32 Calcium 8.3 mg/dL (8.4-10.2) L 12/05/21 04:36 Phosphorus 2.90 mg/dL (2.5-4.5) 12/05/21 04:36 Magnesium 2.00 mg/dL (1.7-2.3) 12/05/21 04:36 Ferritin 52.6 ng/mL (10.0-200.0) 11/05/21 06:11 Total Bilirubin 0.50 mg/dL (0.1-1.2) 11/17/21 05:56 Direct Bilirubin < 0.2 mg/dL (0-0.2) 11/11/21 04:28 Indirect Bilirubin 0.1 mg/dL 11/11/21 04:28 AST 36 units/L (5-40) 11/17/21 05:56 ALT 47 units/L (7-56) 11/17/21 05:56 Alkaline Phosphatase 107 units/L (35-129) 11/17/21 05:56 Ammonia 42.0 umol/L (25-60) 11/10/21 14:08 Lactate Dehydrogenase 187 units/L (91-180) H 11/05/21 06:11 Troponin T 0.045 ng/mL (0.00-0.029) H 11/29/21 20:15 C-Reactive Protein 22.20 mg/dL (0.00-1.30) H 11/05/21 06:11 NT-Pro-B Natriuret Pep 7895 pg/mL (0-900) H 11/03/21 22:32 Total Protein 5.1 g/dL (6.3-8.2) L 11/17/21 05:56 Albumin 2.2 g/dL (3.9-5) L 11/17/21 05:56 Albumin/Globulin Ratio 0.8 % 11/17/21 05:56 Triglycerides 59 mg/dL (2-149) 11/29/21 20:15 Cholesterol 74 mg/dL (50-199) 11/29/21 20:15 LDL Cholesterol Direct 25 mg/dL (50-130) L 11/29/21 20:15 HDL Cholesterol 41 mg/dL (40-59) 11/29/21 20:15 Cholesterol/HDL Ratio 1.80 % 11/29/21 20:15 Vitamin B12 1823 pg/mL (211-911) H 11/10/21 14:08 TSH 1.510 mlU/mL (0.270-4.200) 11/10/21 14:08 Urine Color Yellow (Yellow) 11/11/21 09:00 Urine Turbidity Slightly-cloudy (Clear) 11/11/21 09:00 Urine pH 5.0 (5.0-7.0) 11/11/21 09:00 Ur Specific [place] 1.009 (1.003-1.030) 11/11/21 09:00 Urine Protein <15 mg/dl mg/dL (Negative) 11/11/21 09:00 Urine Glucose (UA) Neg mg/dL (Negative) 11/11/21 09:00 Urine Ketones Neg mg/dL (Negative) 11/11/21 09:00 Urine Blood Mod (Negative) 11/11/21 09:00 Urine Nitrite Neg (Negative) 11/11/21 09:00 Urine Bilirubin Neg (Negative) 11/11/21 09:00 Urine Urobilinogen < 2.0 mg/dL (<2.0) 11/11/21 09:00 Ur Leukocyte Esterase Neg (Negative) 11/11/21 09:00 Urine WBC (Auto) < 1.0 /HPF (0.0-6.0) 11/11/21 09:00 Urine RBC (Auto) < 1.0 /HPF (0.0-6.0) 11/11/21 09:00 Coronavirus (PCR) Negative (Negative) 11/10/21 08:30 Blood Type O POSITIVE 11/18/21 10:45 Antibody Screen Negative 11/18/21 10:45 Crossmatch See Detail 11/18/21 10:45 Gamble/IV: Voiding Method Indwelling Catheter Active Medications - Current Medications Current Medications: Generic Name Dose Route Start Last Admin Trade Name Freq PRN Reason Stop Dose Admin Hydrocodone Bitart/Acetaminophen 1 each 11/21/21 10:00 12/05/21 08:29 Hydrocodone/Acetaminophen 10-325mg Tab FEEDTUBE 1 each TID YOSSI Administration Lipase/Protease/Amylase 1 each 11/08/21 11:09 Lipase 10,500/Protease 25,000/Amylase 43,750 (Units) Cap FEEDTUBE PRN PRN For Clogged Feeding Tube Buspirone HCl 7.5 mg 11/17/21 22:00 12/05/21 09:50 Buspirone 5 Mg Tab PO 7.5 mg BID YOSSI Administration Dextrose 0 ml 11/10/21 10:52 11/21/21 16:27 Dextrose 10% *Hypoglycemia IV 50 ml PRN PRN Administration Hypoglycemia Docusate Sodium 100 mg 12/04/21 11:00 12/04/21 21:26 Docusate Sodium 100 Mg/10 Ml Oral Liqd PO 100 mg BID YOSSI Administration Fentanyl 1 applic 11/17/21 13:00 12/05/21 09:48 Fentanyl 25 Mcg/Hr Patch 72hr TD 1 applic Q3D YOSSI Administration Gabapentin 100 mg 12/01/21 10:00 12/05/21 09:49 Gabapentin 100 Mg Cap PO 100 mg QDAY YOSSI Administration Hydrophilic Ointment 1 applic 11/06/21 04:02 Lip Therapy Vaseline TP Q2HR PRN Dry Lips NORepinephrine/NS 8 MG-250 ML 8 mg in 250 mls @ 3.75 mls/hr 11/29/21 00:00 12/05/21 09:10 Norepinephrine/Ns 8 Mg-250 Ml (Double Conc) IV 0 mcg/min TITRATE YOSSI 0 mls/hr Titration Protocol 2 MCG/MIN Insulin Human Lispro 0 unit 11/06/21 12:00 12/05/21 06:22 Insulin Lispro 100 Unit/Ml SUB-Q Not Given Q6HR YOSSI Protocol Lansoprazole 30 mg 11/24/21 22:00 12/05/21 09:51 Lansoprazole 30 Mg Solutab FEEDTUBE 30 mg BID YOSSI Administration Levothyroxine Sodium 125 mcg 11/05/21 07:00 12/05/21 06:21 Levothyroxine 125 Mcg Tab PO 125 mcg DAILY@0600 YOSSI Administration Metoprolol Tartrate 12.5 mg 11/21/21 10:00 12/04/21 21:26 Metoprolol Tartrate 25 Mg Tab PO 12.5 mg BID YOSSI Administration Multi-Ingred Cream/Lotion/Oil/Oint 1 applic 11/06/21 04:02 Mineral Oil/Petrolatum, White Ophth Oint 3.5 Gm OU Q4HR PRN Dry Eye(s) Nitroglycerin 0.4 mg 11/30/21 11:36 Nitroglycerin 0.4 Mg Tab Subl SL .Q5MIN PRN Chest Pain Ondansetron HCl 4 mg 12/05/21 10:00 12/05/21 09:27 Ondansetron 4 Mg/2 Ml Inj IV 4 mg Q8H PRN Administration Nausea And Vomiting Polyethylene Glycol 17 gm 12/02/21 10:00 12/04/21 10:20 Polyethylene Glycol 3350 17 Gm Powder PO 17 gm QDAY YOSSI Administration Pravastatin Sodium 20 mg 11/18/21 22:00 12/04/21 21:28 Pravastatin 20 Mg Tab PO 20 mg QHS YOSSI Administration Quetiapine Fumarate 50 mg 12/01/21 22:00 12/04/21 21:28 Quetiapine 25 Mg Tab PO 50 mg QHS YOSSI Administration Senna 17.6 mg 11/08/21 22:00 12/04/21 10:20 Sennosides Oral Liqd 8.8 Mg/5 Ml Oral Liqd PO 17.6 mg Q12HR YOSSI Administration Simple Syrup 15 ml 11/08/21 11:09 Simple Syrup 15 Ml FEEDTUBE PRN PRN Hypoglycemia Simple Syrup 30 ml 11/08/21 11:09 Simple Syrup 15 Ml FEEDTUBE PRN PRN Hypoglycemia Sodium Bicarbonate 325 mg 11/08/21 11:09 Sodium Bicarbonate 325 Mg Tab FEEDTUBE PRN PRN For Clogged Feeding Tube Sodium Chloride 10 ml 11/04/21 10:00 12/05/21 09:51 Sodium Chloride 0.9% 10 Ml Flush Syringe IV 10 ml BID YOSSI Administration Sodium Chloride 10 ml 11/04/21 02:03 Sodium Chloride 0.9% 10 Ml Flush Syringe IV PRN PRN LINE FLUSH Sodium Chloride 10 ml 11/10/21 09:57 11/17/21 20:47 Sodium Chloride 0.9% 50 Ml Ivpb IV 10 ml PRN PRN Administration FLUSH Sucralfate 1 gm 11/18/21 16:30 12/05/21 09:50 Sucralfate 1 Gm/10 Ml Oral Liqd PO 1 gm ACHS YOSSI Administration Trazodone HCl 50 mg 12/04/21 22:00 12/04/21 21:31 Trazodone 50 Mg Tab PO 50 mg QHS YOSSI Administration Nutrition/Malnutrition Assess - Dietary Evaluation Nutrition/Malnutrition Findings: Nutrition Notes Start: 11/04/21 17:16 Freq: Status: Active Protocol: Document 12/01/21 18:39 ISABELL (Rec: 12/01/21 19:19 ISABELL [id number]) Nutrition Notes Initial or Follow up Reassessment Current Diagnosis Decubitus(Pressure Ulcer), Diabetes,Hypertension, Respiratory Failure Other Pertinent Diagnosis Bilateral Pneumonia and Pleural Effusion, R- Pneumothorax, CHF-EF, GI Bleed . Current Diet TF-Vital AF 1.2 @ 40 ml/hr ( since 11/30) Labs/Tests 12/01: Na 136, BUN 24, Glu 117 , Ca 7.5, Mg 1.6. Pertinent Medications 12/01: Levothyroxine, others nutritionally unremarkable. Height 5 ft Weight 62.4 kg [place] Body Weight (kg) 45.45 BMI 26.9 Weight change and time frame No body weight change reported . Weight Status Overweight Subjective/Other Information RD consult for routine F/U on TF assessment. Glucerna switched to Vital AF due to out of stock situation. PEG tube placed on 11/26, well tolerated. Pt still on Mechanical Ventilation. Pt has missing teerth, according to Physical Assessment History notes. Case Management note 12/01: Patient officially referred to [facility] for aggressive ventilator weaning. Percent of energy/protein needs met: Prescribed Vital AF 1.2 Tamir @ 40 ml/hr provides for energy/ protein needs (1,150 Kcal/72 g ) during LOS, 95% Kcal; 96% AA . Burn Absent Trauma Absent GI Symptoms Other Difficulty In Swallowing,Chewing Food Allergy No Skin Integrity/Comment Lower Extremities Pressure Ulcer. Current % PO Other Minimum of two criteria No #1 Nutrition Diagnosis Inadequate oral intake Diagnosis Progress(for reassessment Continues documentation) Is patient on ventilator? Yes Is Patient Ambulatory and/or Out of Bed No REE-([facility]-confined to bed) 1207.826 Calculation Used for Recommendations [facility] Additional Notes Protein: 1.2-2 g/Kg; 75-125 g/ day. Fluids: 1 ml/Kcal, or as per MD. Nutrition Intervention Nutrition Support: Switch to Vital AF 1.2 Tamir @ 40 ml/hr. Flush: 70 ml water Q 4 hr, or as per MD. Kcal 1,150 Protein (gm) 72 Carbohydrates (gm) 106 Fat (gm) 52 Fluid (mL) 777 Fiber (gm) 5 % RDI: 95% Kcal; 96% AA. Goal #1 Provide at least 75% of energy /protein needs through Enteral Feeding during LOS. Goal #2 Maintain body weight within +/ -3% of admission body weight during LOS. Follow-Up By: 12/08/21 Additional Comments Continue monitoring TF tolerance and BM. <LEAH ALFONSO - Last Filed: 12/06/21 07:02> Assessment and Plan Assessment and plan: I saw and evaluated the patient. I agree with the findings and the plan of care as documented in the Nurse Practitioner's~note, with the following corrections and additions. Hospitalist Physical - Constitutional Vitals: Temp Pulse Resp BP Pulse Ox 98.0 F 71 14 114/60 98 12/06/21 04:00 12/06/21 06:15 12/06/21 06:15 12/06/21 06:15 12/06/21 06:15 HEART Score - HEART Score Troponin: Troponin T 0.045 ng/mL (0.00-0.029) H 11/29/21 20:15 Results - Labs CBC & Chem 7: 12/06/21 04:25 12/06/21 04:25 Labs: Laboratory Last Values WBC 8.1 K/mm3 (4.5-11.0) 12/06/21 04:25 RBC 2.95 M/mm3 (3.65-5.03) L 12/06/21 04:25 Hgb 7.9 gm/dl (10.1-14.3) L 12/06/21 04:25 Hct 24.7 % (30.3-42.9) L 12/06/21 04:25 MCV 84 fl (79-97) 12/06/21 04:25 MCH 27 pg (28-32) L 12/06/21 04:25 MCHC 32 % (30-34) 12/06/21 04:25 RDW 20.9 % (13.2-15.2) H 12/06/21 04:25 Plt Count 207 K/mm3 (140-440) 12/06/21 04:25 Add Manual Diff Complete 11/16/21 15:25 Total Counted 100 11/16/21 15:25 Seg Neutrophils % Car Pre Cooler 11/06/21 15:50 Seg Neuts % (Manual) 87.0 % (40.0-70.0) H 11/16/21 15:25 Band Neutrophils % 0 % 11/16/21 15:25 Lymphocytes % (Manual) 8.0 % (13.4-35.0) L 11/16/21 15:25 Reactive Lymphs % (Man) 0 % 11/16/21 15:25 Monocytes % (Manual) 5.0 % (0.0-7.3) 11/16/21 15:25 Eosinophils % (Manual) 0 % (0.0-4.3) 11/16/21 15:25 Basophils % (Manual) 0 % (0.0-1.8) 11/16/21 15:25 Metamyelocytes % 0 % 11/16/21 15:25 Myelocytes % 0 % 11/16/21 15:25 Promyelocytes % 0 % 11/16/21 15:25 Blast Cells % 0 % 11/16/21 15:25 Nucleated RBC % Not Reportable 11/16/21 15:25 Seg Neutrophils # Man 15.0 K/mm3 (1.8-7.7) H 11/16/21 15:25 Band Neutrophils # 0.0 K/mm3 11/16/21 15:25 Lymphocytes # (Manual) 1.4 K/mm3 (1.2-5.4) 11/16/21 15:25 Abs React Lymphs (Man) 0.0 K/mm3 11/16/21 15:25 Monocytes # (Manual) 0.9 K/mm3 (0.0-0.8) H 11/16/21 15:25 Eosinophils # (Manual) 0.0 K/mm3 (0.0-0.4) 11/16/21 15:25 Basophils # (Manual) 0.0 K/mm3 (0.0-0.1) 11/16/21 15:25 Metamyelocytes # 0.0 K/mm3 11/16/21 15:25 Myelocytes # 0.0 K/mm3 11/16/21 15:25 Promyelocytes # 0.0 K/mm3 11/16/21 15:25 Blast Cells # 0.0 K/mm3 11/16/21 15:25 WBC Morphology Not Reportable 11/16/21 15:25 Hypersegmented Neuts Not Reportable 11/16/21 15:25 Hyposegmented Neuts Not Reportable 11/16/21 15:25 Hypogranular Neuts Not Reportable 11/16/21 15:25 Smudge Cells Not Reportable 11/16/21 15:25 Toxic Granulation Not Reportable 11/16/21 15:25 Toxic Vacuolation Not Reportable 11/16/21 15:25 Dohle Bodies Not Reportable 11/16/21 15:25 Pelger-Huet Anomaly Not Reportable 11/16/21 15:25 Irina Rods Not Reportable 11/16/21 15:25 Platelet Estimate Consistent w auto 11/16/21 15:25 Clumped Platelets Rare 11/16/21 15:25 Plt Clumps, EDTA Not Reportable 11/16/21 15:25 Large Platelets Not Reportable 11/16/21 15:25 Giant Platelets Not Reportable 11/16/21 15:25 Platelet Satelliting Not Reportable 11/16/21 15:25 Plt Morphology Comment Not Reportable 11/16/21 15:25 RBC Morphology Not Reportable 11/16/21 15:25 Dimorphic RBCs Not Reportable 11/16/21 15:25 Polychromasia Not Reportable 11/16/21 15:25 Hypochromasia 2+ 11/16/21 15:25 Poikilocytosis Not Reportable 11/16/21 15:25 Anisocytosis 2+ 11/16/21 15:25 Microcytosis Not Reportable 11/16/21 15:25 Macrocytosis Not Reportable 11/16/21 15:25 Spherocytes Not Reportable 11/16/21 15:25 Pappenheimer Bodies Not Reportable 11/16/21 15:25 Sickle Cells Not Reportable 11/16/21 15:25 Target Cells 2+ 11/16/21 15:25 Tear Drop Cells Not Reportable 11/16/21 15:25 Ovalocytes Not Reportable 11/16/21 15:25 Helmet Cells Not Reportable 11/16/21 15:25 [place] Bodies Not Reportable 11/16/21 15:25 [place] Rings Not Reportable 11/16/21 15:25 [place] Cells Not Reportable 11/16/21 15:25 Bite Cells Not Reportable 11/16/21 15:25 Crenated Cell Not Reportable 11/16/21 15:25 Elliptocytes Not Reportable 11/16/21 15:25 Acanthocytes (Spur) Not Reportable 11/16/21 15:25 Rouleaux Not Reportable 11/16/21 15:25 Hemoglobin C Crystals Not Reportable 11/16/21 15:25 Schistocytes Not Reportable 11/16/21 15:25 Malaria parasites Not Reportable 11/16/21 15:25 Godfrey Bodies Not Reportable 11/16/21 15:25 Hem Pathologist Commnt No 11/16/21 15:25 PT 16.9 Sec. (12.2-14.9) H 11/26/21 05:00 INR 1.24 (0.87-1.13) H 11/26/21 05:00 APTT 29.2 Sec. (24.2-36.6) 11/26/21 05:00 D-Dimer 2655.00 ng/mlDDU (0-234) H 11/11/21 04:28 ABG pH 7.449 pH Units (7.350-7.450) 11/21/21 16:00 ABG pCO2 32.1 mm Hg 11/21/21 16:00 ABG pO2 114.2 mm Hg (80.0-90.0) H 11/21/21 16:00 ABG HCO3 21.8 mmol/L (20.0-26.0) 11/21/21 16:00 ABG O2 Saturation 98.3 % (95.0-99.0) 11/21/21 16:00 ABG O2 Content 12.5 (0.0-44) 11/21/21 16:00 ABG Base Excess -1.7 mmol/L (-2.0-3.0) 11/21/21 16:00 ABG Hemoglobin 9.1 gm/dl (12.0-16.0) L 11/21/21 16:00 ABG Carboxyhemoglobin 1.9 % (0.0-5.0) 11/21/21 16:00 ABG Methemoglobin 0.5 % (0.0-1.5) 11/21/21 16:00 Oxyhemoglobin 96.0 % (95.0-99.0) 11/21/21 16:00 FiO2 30 % 11/21/21 16:00 Sodium 137 mmol/L (137-145) 12/06/21 04:25 Potassium 3.8 mmol/L (3.6-5.0) 12/06/21 04:25 Chloride 101.6 mmol/L (98-107) 12/06/21 04:25 Carbon Dioxide 28 mmol/L (22-30) 12/06/21 04:25 Anion Gap 11 mmol/L 12/06/21 04:25 BUN 22 mg/dL (7-17) H 12/06/21 04:25 Creatinine 0.5 mg/dL (0.6-1.2) L 12/06/21 04:25 Estimated GFR > 60 ml/min 12/06/21 04:25 BUN/Creatinine Ratio 44 % 12/06/21 04:25 Glucose 136 mg/dL (65-100) H 12/06/21 04:25 POC Glucose 142 mg/dL (70-105) H 12/06/21 05:28 Lactic Acid 3.70 mmol/L (0.7-2.0) H* 11/03/21 22:32 Calcium 8.2 mg/dL (8.4-10.2) L 12/06/21 04:25 Phosphorus 2.90 mg/dL (2.5-4.5) 12/05/21 04:36 Magnesium 2.00 mg/dL (1.7-2.3) 12/05/21 04:36 Ferritin 52.6 ng/mL (10.0-200.0) 11/05/21 06:11 Total Bilirubin 0.50 mg/dL (0.1-1.2) 11/17/21 05:56 Direct Bilirubin < 0.2 mg/dL (0-0.2) 11/11/21 04:28 Indirect Bilirubin 0.1 mg/dL 11/11/21 04:28 AST 36 units/L (5-40) 11/17/21 05:56 ALT 47 units/L (7-56) 11/17/21 05:56 Alkaline Phosphatase 107 units/L (35-129) 11/17/21 05:56 Ammonia 42.0 umol/L (25-60) 11/10/21 14:08 Lactate Dehydrogenase 187 units/L (91-180) H 11/05/21 06:11 Troponin T 0.045 ng/mL (0.00-0.029) H 11/29/21 20:15 C-Reactive Protein 22.20 mg/dL (0.00-1.30) H 11/05/21 06:11 NT-Pro-B Natriuret Pep 7895 pg/mL (0-900) H 11/03/21 22:32 Total Protein 5.1 g/dL (6.3-8.2) L 11/17/21 05:56 Albumin 2.2 g/dL (3.9-5) L 11/17/21 05:56 Albumin/Globulin Ratio 0.8 % 11/17/21 05:56 Triglycerides 59 mg/dL (2-149) 11/29/21 20:15 Cholesterol 74 mg/dL (50-199) 11/29/21 20:15 LDL Cholesterol Direct 25 mg/dL (50-130) L 11/29/21 20:15 HDL Cholesterol 41 mg/dL (40-59) 11/29/21 20:15 Cholesterol/HDL Ratio 1.80 % 11/29/21 20:15 Vitamin B12 1823 pg/mL (211-911) H 11/10/21 14:08 TSH 1.510 mlU/mL (0.270-4.200) 11/10/21 14:08 Urine Color Yellow (Yellow) 11/11/21 09:00 Urine Turbidity Slightly-cloudy (Clear) 11/11/21 09:00 Urine pH 5.0 (5.0-7.0) 11/11/21 09:00 Ur Specific [place] 1.009 (1.003-1.030) 11/11/21 09:00 Urine Protein <15 mg/dl mg/dL (Negative) 11/11/21 09:00 Urine Glucose (UA) Neg mg/dL (Negative) 11/11/21 09:00 Urine Ketones Neg mg/dL (Negative) 11/11/21 09:00 Urine Blood Mod (Negative) 11/11/21 09:00 Urine Nitrite Neg (Negative) 11/11/21 09:00 Urine Bilirubin Neg (Negative) 11/11/21 09:00 Urine Urobilinogen < 2.0 mg/dL (<2.0) 11/11/21 09:00 Ur Leukocyte Esterase Neg (Negative) 11/11/21 09:00 Urine WBC (Auto) < 1.0 /HPF (0.0-6.0) 11/11/21 09:00 Urine RBC (Auto) < 1.0 /HPF (0.0-6.0) 11/11/21 09:00 Coronavirus (PCR) Negative (Negative) 11/10/21 08:30 Blood Type O POSITIVE 11/18/21 10:45 Antibody Screen Negative 11/18/21 10:45 Crossmatch See Detail 11/18/21 10:45 Gamble/IV: Voiding Method Indwelling Catheter Active Medications - Current Medications Current Medications: Generic Name Dose Route Start Last Admin Trade Name Freq PRN Reason Stop Dose Admin Hydrocodone Bitart/Acetaminophen 1 each 11/21/21 10:00 12/05/21 21:24 Hydrocodone/Acetaminophen 10-325mg Tab FEEDTUBE 1 each TID YOSSI Administration Lipase/Protease/Amylase 1 each 11/08/21 11:09 Lipase 10,500/Protease 25,000/Amylase 43,750 (Units) Dr Lema FEEDTUBE PRN PRN For Clogged Feeding Tube Buspirone HCl 7.5 mg 11/17/21 22:00 12/05/21 21:18 Buspirone 5 Mg Tab PO 7.5 mg BID YOSSI Administration Dextrose 0 ml 11/10/21 10:52 11/21/21 16:27 Dextrose 10% *Hypoglycemia IV 50 ml PRN PRN Administration Hypoglycemia Docusate Sodium 100 mg 12/04/21 11:00 12/05/21 21:22 Docusate Sodium 100 Mg/10 Ml Oral Liqd PO 100 mg BID YOSSI Administration Fentanyl 1 applic 11/17/21 13:00 12/05/21 09:48 Fentanyl 25 Mcg/Hr Patch 72hr TD 1 applic Q3D YOSSI Administration Gabapentin 100 mg 12/01/21 10:00 12/05/21 09:49 Gabapentin 100 Mg Cap PO 100 mg QDAY YOSSI Administration Hydrophilic Ointment 1 applic 11/06/21 04:02 Lip Therapy Vaseline TP Q2HR PRN Dry Lips NORepinephrine/NS 8 MG-250 ML 8 mg in 250 mls @ 3.75 mls/hr 11/29/21 00:00 12/05/21 23:12 Norepinephrine/Ns 8 Mg-250 Ml (Double Conc) IV 6 mcg/min TITRATE YOSSI 11.25 mls/hr Titration Protocol 2 MCG/MIN Insulin Human Lispro 0 unit 11/06/21 12:00 12/05/21 17:48 Insulin Lispro 100 Unit/Ml SUB-Q Not Given Q6HR [facility] Protocol Lansoprazole 30 mg 11/24/21 22:00 12/05/21 21:23 Lansoprazole 30 Mg Solutab FEEDTUBE 30 mg BID YOSSI Administration Levothyroxine Sodium 125 mcg 11/05/21 07:00 12/05/21 06:21 Levothyroxine 125 Mcg Tab PO 125 mcg DAILY@0600 [facility] Administration Melatonin 5 mg 12/05/21 22:00 12/05/21 21:22 Melatonin 5 Mg Tab PO 5 mg QHS [facility] Administration Metoprolol Tartrate 12.5 mg 11/21/21 10:00 12/05/21 21:23 Metoprolol Tartrate 25 Mg Tab PO Not Given BID [facility] Multi-Ingred Cream/Lotion/Oil/Oint 1 applic 11/06/21 04:02 Mineral Oil/Petrolatum, White Ophth Oint 3.5 Gm OU Q4HR PRN Dry Eye(s) Nitroglycerin 0.4 mg 11/30/21 11:36 Nitroglycerin 0.4 Mg Tab Subl SL .Q5MIN PRN Chest Pain Ondansetron HCl 4 mg 12/05/21 10:00 12/05/21 09:27 Ondansetron 4 Mg/2 Ml Inj IV 4 mg Q8H PRN Administration Nausea And Vomiting Polyethylene Glycol 17 gm 12/02/21 10:00 12/05/21 17:47 Polyethylene Glycol 3350 17 Gm Powder PO Not Given QDAY [facility] Pravastatin Sodium 20 mg 11/18/21 22:00 12/04/21 21:28 Pravastatin 20 Mg Tab PO 20 mg QHS [facility] Administration Quetiapine Fumarate 50 mg 12/01/21 22:00 12/05/21 21:21 Quetiapine 25 Mg Tab PO 50 mg QHS [facility] Administration Senna 17.6 mg 11/08/21 22:00 12/05/21 21:21 Sennosides Oral Liqd 8.8 Mg/5 Ml Oral Liqd PO 17.6 mg Q12HR YOSSI Administration Simple Syrup 15 ml 11/08/21 11:09 Simple Syrup 15 Ml FEEDTUBE PRN PRN Hypoglycemia Simple Syrup 30 ml 11/08/21 11:09 Simple Syrup 15 Ml FEEDTUBE PRN PRN Hypoglycemia Sodium Bicarbonate 325 mg 11/08/21 11:09 Sodium Bicarbonate 325 Mg Tab FEEDTUBE PRN PRN For Clogged Feeding Tube Sodium Chloride 10 ml 11/04/21 10:00 12/05/21 21:52 Sodium Chloride 0.9% 10 Ml Flush Syringe IV 10 ml BID YOSSI Administration Sodium Chloride 10 ml 11/04/21 02:03 Sodium Chloride 0.9% 10 Ml Flush Syringe IV PRN PRN LINE FLUSH Sodium Chloride 10 ml 11/10/21 09:57 11/17/21 20:47 Sodium Chloride 0.9% 50 Ml Ivpb IV 10 ml PRN PRN Administration FLUSH Sucralfate 1 gm 11/18/21 16:30 12/05/21 21:25 Sucralfate 1 Gm/10 Ml Oral Liqd PO 1 gm ACHS YOSSI Administration Trazodone HCl 50 mg 12/04/21 22:00 12/04/21 21:31 Trazodone 50 Mg Tab PO 50 mg QHS YOSSI Administration Nutrition/Malnutrition Assess - Dietary Evaluation Nutrition/Malnutrition Findings: Nutrition Notes Start: 11/04/21 17:16 Freq: Status: Active Protocol: Document 12/01/21 18:39 ISABELL (Rec: 12/01/21 19:19 ISABELL [id number]) Nutrition Notes Initial or Follow up Reassessment Current Diagnosis Decubitus(Pressure Ulcer), Diabetes,Hypertension, Respiratory Failure Other Pertinent Diagnosis Bilateral Pneumonia and Pleural Effusion, R- Pneumothorax, CHF-EF, GI Bleed . Current Diet TF-Vital AF 1.2 @ 40 ml/hr ( since 11/30) Labs/Tests 12/01: Na 136, BUN 24, Glu 117 , Ca 7.5, Mg 1.6. Pertinent Medications 12/01: Levothyroxine, others nutritionally unremarkable. Height 5 ft Weight 62.4 kg [place] Body Weight (kg) 45.45 BMI 26.9 Weight change and time frame No body weight change reported . Weight Status Overweight Subjective/Other Information RD consult for routine F/U on TF assessment. Glucerna switched to Vital AF due to out of stock situation. PEG tube placed on 11/26, well tolerated. Pt still on Mechanical Ventilation. Pt has missing teerth, according to Physical Assessment History notes. Case Management note 12/01: Patient officially referred [facility] for aggressive ventilator weaning. Percent of energy/protein needs met: Prescribed Vital AF 1.2 Tamir @ 40 ml/hr provides for energy/ protein needs (1,150 Kcal/72 g ) during LOS, 95% Kcal; 96% AA . Burn Absent Trauma Absent GI Symptoms Other Difficulty In Swallowing,Chewing Food Allergy No Skin Integrity/Comment Lower Extremities Pressure Ulcer. Current % PO Other Minimum of two criteria No #1 Nutrition Diagnosis Inadequate oral intake Diagnosis Progress(for reassessment Continues documentation) Is patient on ventilator? Yes Is Patient Ambulatory and/or Out of Bed No REE-([facility]-confined to bed) 7977.243 Calculation Used for Recommendations [facility] Additional Notes Protein: 1.2-2 g/Kg; 75-125 g/ day. Fluids: 1 ml/Kcal, or as per MD. Nutrition Intervention Nutrition Support: Switch to Vital AF 1.2 Tamir @ 40 ml/hr. Flush: 70 ml water Q 4 hr, or as per MD. Kcal 1,150 Protein (gm) 72 Carbohydrates (gm) 106 Fat (gm) 52 Fluid (mL) 777 Fiber (gm) 5 % RDI: 95% Kcal; 96% AA. Goal #1 Provide at least 75% of energy /protein needs through Enteral Feeding during LOS. Goal #2 Maintain body weight within +/ -3% of admission body weight during LOS. Follow-Up By: 12/08/21 Additional Comments Continue monitoring TF tolerance and BM.
--- NOTE | 2021-12-05 16:14 | Progress Note ---
Assessment and Plan Severe Sepsis POA vs septic shock- 11/03/2021 blood culture: 2 sets positive for GPC Acute respiratory failure with hypoxia, s/p trach on MVS Acute microcytic anemia Bilateral pneumonia Left pleural effusion Cardiomyopathy EF 30-35% Moderate pulmonary HTN RVSP 49 Daily SBTs as tolerated. Conservative fluid management as tolerated by hemodynamics and renal function Continue to optimize enteric nutritional support Maintain sleep-wake cycle, add melatonin for sleep PT/OT, increase activity Discharge planning- possible LTACH - continue to titrate supplemental oxygen to keep SPO2 88-90% - VAP bundle addressed, aspiration precautions, HOB >40 - continue bronchodilators with pulmonary hygiene per RT - continue avoid nephrotoxins, renally dose all medications - Accuchecks with glycemic control per SSI (While critically ill target blood glucose of 140-180 mg/dL; avoid hypoglycemia) - continue to avoid benzodiazepines, reduce the possibility of delirium -trend temperature curve, trend WCC, continue to monitor off antibiotics - Maintenance of sleep-wake cycle, avoid delirium -Stress and VTE prophylaxis ( Lansoprazole, resume heparin) -mobility, off loading and frequent turning to prevent pressure ulcer -continue with enteric nutritional support via PEG, at goal rate - Continue to monitor hemodynamics closely - continue other care per attending / other consultants COVID SPECIFIC INTERVENTIONS - Negative CONDITION: FAIR PROGNOSIS: GUARDED CODE STATUS: FULL CODE The high probability of a clinically significant, sudden or life-threatening deterioration of the [respiratory, cardiovascular and hematologic] system(s) r equired my full and direct attention, intervention and personal management. The aggregate critical care time was [33] minutes without overlap. Time includes spent on; [x] Data Review and interpretation [x] Patient assessment and monitoring of vital signs [x] Documentation [x] Medication orders and management Subjective Date of service: 12/05/21 Principal diagnosis: Septic shock; AHRF; Anemia; Pneumonia; L. pleural effusion; HFrEF; Pulm HTN Interval history: Follow up fro acute hypoxemic resp failure s/p tracheostomy to MVS ; Septic and cardiogenic shock; severe anemia; Patient seen and examined. Vitals, labs, medications, chart and imaging reviewed. Discussed with respiratory and nursing care staff. Currently on PSV, no fevers overnight, no diarrhea, no vomiting. Episodes of agitation overnight,on low dose norepinephrine Tolerating tube feeding, she is interactive with appropriate responses Objective Vital Signs - 12hr 02/12/05/21 12/05/21 04:15 04:30 04:46 Temperature Pulse Rate 71 66 63 Pulse Rate [ From Monitor] Respiratory 13 13 14 Rate Blood Pressure 112/72 112/72 81/47 O2 Sat by Pulse 99 98 98 Oximetry 12/05/21 12/05/21 12/05/21 05:00 05:15 05:30 Temperature Pulse Rate 64 66 64 Pulse Rate [ From Monitor] Respiratory 14 13 13 Rate Blood Pressure 93/51 89/53 98/52 O2 Sat by Pulse 97 98 99 Oximetry 12/05/21 12/05/21 12/05/21 05:45 06:00 06:15 Temperature Pulse Rate 63 72 64 Pulse Rate [ From Monitor] Respiratory 14 17 14 Rate Blood Pressure 97/52 100/58 90/58 O2 Sat by Pulse 98 97 98 Oximetry 12/05/21 12/05/21 12/05/21 06:30 06:45 07:00 Temperature Pulse Rate 63 64 66 Pulse Rate [ From Monitor] Respiratory 15 14 13 Rate Blood Pressure 101/56 103/53 112/59 O2 Sat by Pulse 98 98 99 Oximetry 12/05/21 12/05/21 12/05/21 07:15 07:30 07:36 Temperature 98.4 F Pulse Rate 65 65 Pulse Rate [ From Monitor] Respiratory 13 14 Rate Blood Pressure 101/57 107/58 O2 Sat by Pulse 99 99 Oximetry 12/05/21 12/05/21 12/05/21 07:46 07:47 07:51 Temperature Pulse Rate 77 72 71 Pulse Rate [ From Monitor] Respiratory 17 19 Rate Blood Pressure 96/66 96/66 96/66 O2 Sat by Pulse 100 100 99 Oximetry 12/05/21 12/05/21 12/05/21 08:00 08:15 08:30 Temperature Pulse Rate 74 82 92 H Pulse Rate [ 74 From Monitor] Respiratory 18 24 19 Rate Blood Pressure 108/75 117/67 117/67 O2 Sat by Pulse 95 98 95 Oximetry 12/05/21 12/05/21 12/05/21 08:46 09:00 09:16 Temperature Pulse Rate 99 H 105 H 110 H Pulse Rate [ From Monitor] Respiratory 12 17 17 Rate Blood Pressure 128/84 128/84 166/76 O2 Sat by Pulse 92 89 90 Oximetry 12/05/21 12/05/21 12/05/21 09:30 09:46 10:00 Temperature Pulse Rate 108 H 101 H 93 H Pulse Rate [ From Monitor] Respiratory 32 H 35 H 25 H Rate Blood Pressure 131/109 126/63 126/63 O2 Sat by Pulse 96 92 94 Oximetry 12/05/21 12/05/21 12/05/21 10:15 10:30 10:45 Temperature Pulse Rate 85 84 80 Pulse Rate [ From Monitor] Respiratory 21 23 16 Rate Blood Pressure 73/38 81/45 81/38 O2 Sat by Pulse 94 94 93 Oximetry 12/05/21 12/05/21 12/05/21 11:00 11:15 11:30 Temperature Pulse Rate 77 72 72 Pulse Rate [ From Monitor] Respiratory 14 20 25 H Rate Blood Pressure 76/40 70/44 89/55 O2 Sat by Pulse 94 94 100 Oximetry 12/05/21 12/05/21 12/05/21 11:31 11:45 12:00 Temperature 98.0 F Pulse Rate 75 73 Pulse Rate [ 74 From Monitor] Respiratory 32 H 19 Rate Blood Pressure 101/56 105/62 O2 Sat by Pulse 97 97 Oximetry 12/05/21 12:15 Temperature Pulse Rate 74 Pulse Rate [ From Monitor] Respiratory 19 Rate Blood Pressure 111/69 O2 Sat by Pulse 96 Oximetry Constitutional: no acute distress, alert, other (trach to MVS, frail elderly woman with mildly increased respiratory effort at rest) Eyes: non-icteric ENT: oropharynx moist, oropharyngeal exudate pre (clear frothy), other (+ Midline tracheostomy) Neck: supple, no lymphadenopathy, no JVD Effort: mildly labored Ascultation: Bilateral: diminished breath sounds, rhonchi, other (Right chest tube) Percussion: Bilateral: not dull Cardiovascular: regular rate and rhythm, other (S1,S2) Gastrointestinal: normoactive bowel sounds, soft, non-tender, non-distended (protuberant) Integumentary: normal Extremities: no cyanosis, pink and warm, pulses normal, edema (upper etremities) Neurologic: normal mental status, non-focal exam (grossly), pupils equal and round, motor strength normal and Psychiatric: mood appropriate, affect normal CBC and BMP: 12/06/21 04:25 12/06/21 04:25 ABG, PT/INR, D-dimer: ABG ABG pH 7.449 pH Units (7.350-7.450) 11/21/21 16:00 ABG pCO2 32.1 mm Hg 11/21/21 16:00 ABG pO2 114.2 mm Hg (80.0-90.0) H 11/21/21 16:00 ABG O2 Saturation 98.3 % (95.0-99.0) 11/21/21 16:00 PT/INR, D-dimer PT 16.9 Sec. (12.2-14.9) H 11/26/21 05:00 INR 1.24 (0.87-1.13) H 11/26/21 05:00 D-Dimer 2655.00 ng/mlDDU (0-234) H 11/11/21 04:28 Abnormal lab findings: Abnormal Labs 11/03/21 11/03/21 11/03/21 22:32 22:32 22:32 WBC 29.3 H RBC 2.93 L Hgb 6.1 L Hct 21.9 L MCV 75 L MCH 21 L MCHC 28 L RDW 19.7 H Plt Count Seg Neuts % (Manual) 97.0 H Lymphocytes % (Manual) 3.0 L Seg Neutrophils # Man 28.4 H Lymphocytes # (Manual) 0.9 L Monocytes # (Manual) PT 18.6 H INR 1.40 H D-Dimer ABG pH ABG pO2 ABG HCO3 ABG O2 Saturation ABG Base Excess ABG Hemoglobin Oxyhemoglobin Sodium Potassium Chloride Carbon Dioxide 20 L BUN 33 H Creatinine Glucose 119 H POC Glucose Lactic Acid Calcium 8.3 L Phosphorus Magnesium AST ALT Alkaline Phosphatase Lactate Dehydrogenase Troponin T 0.035 H C-Reactive Protein NT-Pro-B Natriuret Pep Total Protein Albumin LDL Cholesterol Direct 34 L Vitamin B12 Crossmatch 11/03/21 11/03/21 11/03/21 22:32 22:32 23:57 WBC RBC Hgb Hct MCV MCH MCHC RDW Plt Count Seg Neuts % (Manual) Lymphocytes % (Manual) Seg Neutrophils # Man Lymphocytes # (Manual) Monocytes # (Manual) PT INR D-Dimer ABG pH ABG pO2 ABG HCO3 ABG O2 Saturation ABG Base Excess ABG Hemoglobin Oxyhemoglobin Sodium Potassium Chloride Carbon Dioxide BUN Creatinine Glucose POC Glucose Lactic Acid 3.70 H* Calcium Phosphorus Magnesium AST ALT Alkaline Phosphatase 139 H Lactate Dehydrogenase Troponin T C-Reactive Protein NT-Pro-B Natriuret Pep 7895 H Total Protein Albumin 3.5 L LDL Cholesterol Direct Vitamin B12 Crossmatch See Detail 11/04/21 11/04/21 11/05/21 00:59 13:58 00:51 WBC 27.9 H RBC 3.28 L Hgb 7.3 L Hct 25.5 L MCV 78 L MCH 22 L MCHC 29 L RDW 19.1 H Plt Count Seg Neuts % (Manual) 96.0 H Lymphocytes % (Manual) 2.0 L Seg Neutrophils # Man 26.8 H Lymphocytes # (Manual) 0.6 L Monocytes # (Manual) PT INR D-Dimer ABG pH ABG pO2 ABG HCO3 ABG O2 Saturation ABG Base Excess ABG Hemoglobin Oxyhemoglobin Sodium Potassium Chloride Carbon Dioxide BUN Creatinine Glucose POC Glucose Lactic Acid Calcium Phosphorus Magnesium AST ALT Alkaline Phosphatase Lactate Dehydrogenase Troponin T 0.051 H D 0.032 H D C-Reactive Protein NT-Pro-B Natriuret Pep Total Protein Albumin LDL Cholesterol Direct Vitamin B12 Crossmatch 11/05/21 11/05/21 11/05/21 06:11 06:11 06:11 WBC 31.8 H RBC 3.57 L Hgb 8.0 L Hct 27.7 L MCV 78 L MCH 22 L MCHC 29 L RDW 19.2 H Plt Count Seg Neuts % (Manual) 91.0 H Lymphocytes % (Manual) 4.5 L Seg Neutrophils # Man 28.9 H Lymphocytes # (Manual) Monocytes # (Manual) 1.1 H PT INR D-Dimer 1494.53 H ABG pH ABG pO2 ABG HCO3 ABG O2 Saturation ABG Base Excess ABG Hemoglobin Oxyhemoglobin Sodium Potassium Chloride Carbon Dioxide 19 L BUN 42 H Creatinine Glucose 115 H POC Glucose Lactic Acid Calcium Phosphorus Magnesium AST 43 H ALT Alkaline Phosphatase Lactate Dehydrogenase 187 H Troponin T C-Reactive Protein 22.20 H NT-Pro-B Natriuret Pep Total Protein 6.0 L Albumin 3.2 L LDL Cholesterol Direct Vitamin B12 Crossmatch 11/05/21 11/05/21 11/06/21 06:11 12:15 00:30 WBC RBC Hgb Hct MCV MCH MCHC RDW Plt Count Seg Neuts % (Manual) Lymphocytes % (Manual) Seg Neutrophils # Man Lymphocytes # (Manual) Monocytes # (Manual) PT INR D-Dimer ABG pH ABG pO2 ABG HCO3 ABG O2 Saturation ABG Base Excess ABG Hemoglobin Oxyhemoglobin Sodium Potassium Chloride Carbon Dioxide BUN Creatinine Glucose POC Glucose 113 H 69 L Lactic Acid Calcium Phosphorus Magnesium AST ALT Alkaline Phosphatase Lactate Dehydrogenase Troponin T 0.033 H C-Reactive Protein NT-Pro-B Natriuret Pep Total Protein Albumin LDL Cholesterol Direct Vitamin B12 Crossmatch 11/06/21 11/06/21 11/06/21 05:50 15:50 15:50 WBC 25.5 H RBC 3.62 L Hgb 8.0 L Hct 27.5 L MCV 76 L MCH 22 L MCHC 29 L RDW 19.6 H Plt Count Seg Neuts % (Manual) 92.0 H Lymphocytes % (Manual) 5.0 L Seg Neutrophils # Man 23.5 H Lymphocytes # (Manual) Monocytes # (Manual) PT INR D-Dimer ABG pH 7.305 L ABG pO2 ABG HCO3 15.8 L ABG O2 Saturation ABG Base Excess -9.6 L ABG Hemoglobin 8.6 L Oxyhemoglobin 94.6 L Sodium Potassium Chloride 113.9 H Carbon Dioxide 17 L BUN 56 H Creatinine Glucose 114 H POC Glucose Lactic Acid Calcium 7.9 L Phosphorus Magnesium AST 1410 H ALT 934 H Alkaline Phosphatase 142 H Lactate Dehydrogenase Troponin T C-Reactive Protein NT-Pro-B Natriuret Pep Total Protein 5.0 L Albumin 2.6 L LDL Cholesterol Direct Vitamin B12 Crossmatch 11/07/21 11/07/21 11/07/21 03:30 04:50 08:07 WBC RBC Hgb Hct MCV MCH MCHC RDW Plt Count Seg Neuts % (Manual) Lymphocytes % (Manual) Seg Neutrophils # Man Lymphocytes # (Manual) Monocytes # (Manual) PT INR D-Dimer ABG pH ABG pO2 296.9 H ABG HCO3 18.1 L ABG O2 Saturation 99.5 H ABG Base Excess -5.9 L ABG Hemoglobin 7.6 L Oxyhemoglobin Sodium Potassium Chloride Carbon Dioxide BUN Creatinine Glucose POC Glucose 106 H 108 H Lactic Acid Calcium Phosphorus Magnesium AST ALT Alkaline Phosphatase Lactate Dehydrogenase Troponin T C-Reactive Protein NT-Pro-B Natriuret Pep Total Protein Albumin LDL Cholesterol Direct Vitamin B12 Crossmatch 11/08/21 11/08/21 11/08/21 03:10 18:05 23:43 WBC RBC Hgb Hct MCV MCH MCHC RDW Plt Count Seg Neuts % (Manual) Lymphocytes % (Manual) Seg Neutrophils # Man Lymphocytes # (Manual) Monocytes # (Manual) PT INR D-Dimer ABG pH ABG pO2 127.4 H ABG HCO3 ABG O2 Saturation ABG Base Excess -3.4 L ABG Hemoglobin 7.4 L Oxyhemoglobin Sodium Potassium Chloride Carbon Dioxide BUN Creatinine Glucose POC Glucose 113 H 141 H Lactic Acid Calcium Phosphorus Magnesium AST ALT Alkaline Phosphatase Lactate Dehydrogenase Troponin T C-Reactive Protein NT-Pro-B Natriuret Pep Total Protein Albumin LDL Cholesterol Direct Vitamin B12 Crossmatch 11/08/21 11/08/21 11/09/21 Unknown Unknown 02:00 WBC 14.5 H RBC 3.35 L Hgb 7.5 L 8.1 L Hct 25.4 L 27.6 L MCV 76 L 76 L MCH 23 L 22 L MCHC RDW 19.9 H 19.9 H Plt Count Seg Neuts % (Manual) Lymphocytes % (Manual) Seg Neutrophils # Man Lymphocytes # (Manual) Monocytes # (Manual) PT INR D-Dimer ABG pH ABG pO2 ABG HCO3 ABG O2 Saturation ABG Base Excess ABG Hemoglobin Oxyhemoglobin Sodium 154 H D Potassium 3.3 L Chloride 120.7 H Carbon Dioxide 20 L BUN 38 H Creatinine Glucose POC Glucose Lactic Acid Calcium 8.3 L Phosphorus Magnesium AST ALT Alkaline Phosphatase Lactate Dehydrogenase Troponin T C-Reactive Protein NT-Pro-B Natriuret Pep Total Protein Albumin LDL Cholesterol Direct Vitamin B12 Crossmatch 11/09/21 11/09/21 11/09/21 02:00 02:31 05:12 WBC RBC Hgb Hct MCV MCH MCHC RDW Plt Count Seg Neuts % (Manual) Lymphocytes % (Manual) Seg Neutrophils # Man Lymphocytes # (Manual) Monocytes # (Manual) PT INR D-Dimer ABG pH 7.479 H ABG pO2 121.3 H ABG HCO3 ABG O2 Saturation ABG Base Excess ABG Hemoglobin 7.3 L Oxyhemoglobin Sodium Potassium Chloride 112.5 H Carbon Dioxide BUN 33 H Creatinine Glucose 161 H POC Glucose 135 H Lactic Acid Calcium Phosphorus Magnesium AST 251 H ALT 481 H Alkaline Phosphatase Lactate Dehydrogenase Troponin T C-Reactive Protein NT-Pro-B Natriuret Pep Total Protein 5.0 L Albumin 2.8 L LDL Cholesterol Direct Vitamin B12 Crossmatch 11/09/21 11/09/21 11/09/21 11:33 16:32 23:28 WBC RBC Hgb Hct MCV MCH MCHC RDW Plt Count Seg Neuts % (Manual) Lymphocytes % (Manual) Seg Neutrophils # Man Lymphocytes # (Manual) Monocytes # (Manual) PT INR D-Dimer ABG pH ABG pO2 ABG HCO3 ABG O2 Saturation ABG Base Excess ABG Hemoglobin Oxyhemoglobin Sodium Potassium Chloride Carbon Dioxide BUN Creatinine Glucose POC Glucose 132 H 133 H 143 H Lactic Acid Calcium Phosphorus Magnesium AST ALT Alkaline Phosphatase Lactate Dehydrogenase Troponin T C-Reactive Protein NT-Pro-B Natriuret Pep Total Protein Albumin LDL Cholesterol Direct Vitamin B12 Crossmatch 11/10/21 11/10/21 11/10/21 04:00 04:00 05:35 WBC 16.0 H RBC 3.61 L Hgb 8.0 L Hct 27.1 L MCV 75 L MCH 22 L MCHC RDW 20.4 H Plt Count Seg Neuts % (Manual) Lymphocytes % (Manual) Seg Neutrophils # Man Lymphocytes # (Manual) Monocytes # (Manual) PT INR D-Dimer ABG pH ABG pO2 ABG HCO3 ABG O2 Saturation ABG Base Excess ABG Hemoglobin Oxyhemoglobin Sodium 149 H Potassium Chloride 114.1 H Carbon Dioxide BUN 31 H Creatinine Glucose 148 H POC Glucose 132 H Lactic Acid Calcium 8.2 L Phosphorus Magnesium AST ALT Alkaline Phosphatase Lactate Dehydrogenase Troponin T C-Reactive Protein NT-Pro-B Natriuret Pep Total Protein Albumin LDL Cholesterol Direct Vitamin B12 Crossmatch 11/10/21 11/10/21 11/10/21 11:31 14:08 15:35 WBC RBC Hgb Hct MCV MCH MCHC RDW Plt Count Seg Neuts % (Manual) Lymphocytes % (Manual) Seg Neutrophils # Man Lymphocytes # (Manual) Monocytes # (Manual) PT INR D-Dimer ABG pH ABG pO2 126.6 H ABG HCO3 ABG O2 Saturation ABG Base Excess ABG Hemoglobin 7.4 L Oxyhemoglobin Sodium Potassium Chloride Carbon Dioxide BUN Creatinine Glucose POC Glucose 147 H Lactic Acid Calcium Phosphorus Magnesium AST ALT Alkaline Phosphatase Lactate Dehydrogenase Troponin T C-Reactive Protein NT-Pro-B Natriuret Pep Total Protein Albumin LDL Cholesterol Direct Vitamin B12 1823 H Crossmatch 11/10/21 11/11/21 11/11/21 17:53 00:55 04:28 WBC RBC Hgb Hct MCV MCH MCHC RDW Plt Count Seg Neuts % (Manual) Lymphocytes % (Manual) Seg Neutrophils # Man Lymphocytes # (Manual) Monocytes # (Manual) PT INR D-Dimer ABG pH ABG pO2 ABG HCO3 ABG O2 Saturation ABG Base Excess ABG Hemoglobin Oxyhemoglobin Sodium 149 H Potassium Chloride 112.2 H Carbon Dioxide BUN 34 H Creatinine Glucose 148 H POC Glucose 140 H 145 H Lactic Acid Calcium 7.9 L Phosphorus Magnesium AST 53 H ALT 203 H Alkaline Phosphatase Lactate Dehydrogenase Troponin T C-Reactive Protein NT-Pro-B Natriuret Pep Total Protein 4.9 L Albumin 2.6 L LDL Cholesterol Direct Vitamin B12 Crossmatch 11/11/21 11/11/21 11/11/21 04:28 04:28 05:28 WBC 20.9 H RBC 3.47 L Hgb 7.5 L Hct 26.0 L MCV 75 L MCH 22 L MCHC 29 L RDW 21.6 H Plt Count 132 L Seg Neuts % (Manual) Lymphocytes % (Manual) Seg Neutrophils # Man Lymphocytes # (Manual) Monocytes # (Manual) PT INR D-Dimer 2655.00 H ABG pH ABG pO2 ABG HCO3 ABG O2 Saturation ABG Base Excess ABG Hemoglobin Oxyhemoglobin Sodium Potassium Chloride Carbon Dioxide BUN Creatinine Glucose POC Glucose 154 H Lactic Acid Calcium Phosphorus Magnesium AST ALT Alkaline Phosphatase Lactate Dehydrogenase Troponin T C-Reactive Protein NT-Pro-B Natriuret Pep Total Protein Albumin LDL Cholesterol Direct Vitamin B12 Crossmatch 11/11/21 11/11/21 11/12/21 12:38 18:13 00:14 WBC RBC Hgb Hct MCV MCH MCHC RDW Plt Count Seg Neuts % (Manual) Lymphocytes % (Manual) Seg Neutrophils # Man Lymphocytes # (Manual) Monocytes # (Manual) PT INR D-Dimer ABG pH ABG pO2 ABG HCO3 ABG O2 Saturation ABG Base Excess ABG Hemoglobin Oxyhemoglobin Sodium Potassium Chloride Carbon Dioxide BUN Creatinine Glucose POC Glucose 137 H 108 H 137 H Lactic Acid Calcium Phosphorus Magnesium AST ALT Alkaline Phosphatase Lactate Dehydrogenase Troponin T C-Reactive Protein NT-Pro-B Natriuret Pep Total Protein Albumin LDL Cholesterol Direct Vitamin B12 Crossmatch 11/12/21 11/12/21 11/12/21 05:40 06:24 11:12 WBC RBC Hgb Hct MCV MCH MCHC RDW Plt Count Seg Neuts % (Manual) Lymphocytes % (Manual) Seg Neutrophils # Man Lymphocytes # (Manual) Monocytes # (Manual) PT INR D-Dimer ABG pH 7.586 H ABG pO2 150.6 H ABG HCO3 27.2 H ABG O2 Saturation 99.1 H ABG Base Excess 5.2 H ABG Hemoglobin 7.5 L Oxyhemoglobin Sodium Potassium Chloride Carbon Dioxide BUN Creatinine Glucose POC Glucose 132 H 140 H Lactic Acid Calcium Phosphorus Magnesium AST ALT Alkaline Phosphatase Lactate Dehydrogenase Troponin T C-Reactive Protein NT-Pro-B Natriuret Pep Total Protein Albumin LDL Cholesterol Direct Vitamin B12 Crossmatch 11/12/21 11/12/21 11/12/21 14:50 14:50 17:13 WBC 19.8 H RBC 3.27 L Hgb 7.1 L Hct 24.5 L MCV 75 L MCH 22 L MCHC 29 L RDW 22.3 H Plt Count Seg Neuts % (Manual) Lymphocytes % (Manual) Seg Neutrophils # Man Lymphocytes # (Manual) Monocytes # (Manual) PT INR D-Dimer ABG pH ABG pO2 ABG HCO3 ABG O2 Saturation ABG Base Excess ABG Hemoglobin Oxyhemoglobin Sodium 150 H Potassium 3.3 L Chloride 112.0 H Carbon Dioxide BUN 40 H Creatinine Glucose 151 H POC Glucose 121 H Lactic Acid Calcium 7.4 L Phosphorus 1.70 L Magnesium 1.40 L AST ALT Alkaline Phosphatase Lactate Dehydrogenase Troponin T C-Reactive Protein NT-Pro-B Natriuret Pep Total Protein Albumin LDL Cholesterol Direct Vitamin B12 Crossmatch 11/12/21 11/13/21 11/13/21 23:19 05:34 06:30 WBC RBC Hgb Hct MCV MCH MCHC RDW Plt Count Seg Neuts % (Manual) Lymphocytes % (Manual) Seg Neutrophils # Man Lymphocytes # (Manual) Monocytes # (Manual) PT INR D-Dimer ABG pH ABG pO2 ABG HCO3 ABG O2 Saturation ABG Base Excess ABG Hemoglobin Oxyhemoglobin Sodium 149 H Potassium Chloride 60.0 L Carbon Dioxide BUN 40 H Creatinine Glucose 146 H POC Glucose 113 H 132 H Lactic Acid Calcium 7.3 L Phosphorus Magnesium 2.40 H AST ALT 72 H Alkaline Phosphatase Lactate Dehydrogenase Troponin T C-Reactive Protein NT-Pro-B Natriuret Pep Total Protein 5.2 L Albumin 2.2 L LDL Cholesterol Direct Vitamin B12 Crossmatch 11/13/21 11/13/21 11/13/21 06:30 08:30 11:19 WBC 21.2 H RBC 3.12 L Hgb 6.8 L Hct 23.2 L MCV 74 L MCH 22 L MCHC 29 L RDW 22.2 H Plt Count 135 L Seg Neuts % (Manual) Lymphocytes % (Manual) Seg Neutrophils # Man Lymphocytes # (Manual) Monocytes # (Manual) PT INR D-Dimer ABG pH ABG pO2 ABG HCO3 ABG O2 Saturation ABG Base Excess ABG Hemoglobin Oxyhemoglobin Sodium Potassium Chloride Carbon Dioxide BUN Creatinine Glucose POC Glucose 136 H Lactic Acid Calcium Phosphorus Magnesium AST ALT Alkaline Phosphatase Lactate Dehydrogenase Troponin T C-Reactive Protein NT-Pro-B Natriuret Pep Total Protein Albumin LDL Cholesterol Direct Vitamin B12 Crossmatch See Detail 11/13/21 11/14/21 11/14/21 18:21 00:01 04:46 WBC 20.0 H RBC 3.41 L Hgb 7.9 L Hct 26.8 L MCV MCH 23 L MCHC 29 L RDW 24.0 H Plt Count Seg Neuts % (Manual) Lymphocytes % (Manual) Seg Neutrophils # Man Lymphocytes # (Manual) Monocytes # (Manual) PT INR D-Dimer ABG pH ABG pO2 ABG HCO3 ABG O2 Saturation ABG Base Excess ABG Hemoglobin Oxyhemoglobin Sodium Potassium Chloride Carbon Dioxide BUN Creatinine Glucose POC Glucose 149 H 141 H Lactic Acid Calcium Phosphorus Magnesium AST ALT Alkaline Phosphatase Lactate Dehydrogenase Troponin T C-Reactive Protein NT-Pro-B Natriuret Pep Total Protein Albumin LDL Cholesterol Direct Vitamin B12 Crossmatch 11/14/21 11/14/21 11/14/21 04:46 05:10 11:10 WBC RBC Hgb Hct MCV MCH MCHC RDW Plt Count Seg Neuts % (Manual) Lymphocytes % (Manual) Seg Neutrophils # Man Lymphocytes # (Manual) Monocytes # (Manual) PT INR D-Dimer ABG pH ABG pO2 ABG HCO3 ABG O2 Saturation ABG Base Excess ABG Hemoglobin Oxyhemoglobin Sodium 148 H Potassium Chloride 113.1 H Carbon Dioxide BUN 43 H Creatinine Glucose 140 H POC Glucose 132 H 133 H Lactic Acid Calcium 7.5 L Phosphorus Magnesium AST ALT Alkaline Phosphatase Lactate Dehydrogenase Troponin T C-Reactive Protein NT-Pro-B Natriuret Pep Total Protein Albumin LDL Cholesterol Direct Vitamin B12 Crossmatch 11/14/21 11/14/21 11/14/21 16:14 17:48 23:23 WBC RBC Hgb Hct MCV MCH MCHC RDW Plt Count Seg Neuts % (Manual) Lymphocytes % (Manual) Seg Neutrophils # Man Lymphocytes # (Manual) Monocytes # (Manual) PT INR D-Dimer ABG pH ABG pO2 ABG HCO3 28.0 H ABG O2 Saturation ABG Base Excess 3.1 H ABG Hemoglobin 5.8 L Oxyhemoglobin 94.8 L Sodium Potassium Chloride Carbon Dioxide BUN Creatinine Glucose POC Glucose 130 H 136 H Lactic Acid Calcium Phosphorus Magnesium AST ALT Alkaline Phosphatase Lactate Dehydrogenase Troponin T C-Reactive Protein NT-Pro-B Natriuret Pep Total Protein Albumin LDL Cholesterol Direct Vitamin B12 Crossmatch 11/15/21 11/15/21 11/15/21 05:20 05:50 05:50 WBC 19.9 H RBC 3.50 L Hgb 8.2 L Hct 27.9 L MCV MCH 23 L MCHC 29 L RDW 24.9 H Plt Count Seg Neuts % (Manual) Lymphocytes % (Manual) Seg Neutrophils # Man Lymphocytes # (Manual) Monocytes # (Manual) PT INR D-Dimer ABG pH ABG pO2 ABG HCO3 ABG O2 Saturation ABG Base Excess ABG Hemoglobin Oxyhemoglobin Sodium 149 H Potassium Chloride 112.0 H Carbon Dioxide BUN 48 H Creatinine Glucose 152 H POC Glucose 137 H Lactic Acid Calcium 7.9 L Phosphorus Magnesium AST ALT Alkaline Phosphatase Lactate Dehydrogenase Troponin T C-Reactive Protein NT-Pro-B Natriuret Pep Total Protein Albumin LDL Cholesterol Direct Vitamin B12 Crossmatch 11/15/21 11/15/21 11/15/21 12:12 17:07 23:24 WBC RBC Hgb Hct MCV MCH MCHC RDW Plt Count Seg Neuts % (Manual) Lymphocytes % (Manual) Seg Neutrophils # Man Lymphocytes # (Manual) Monocytes # (Manual) PT INR D-Dimer ABG pH ABG pO2 ABG HCO3 ABG O2 Saturation ABG Base Excess ABG Hemoglobin Oxyhemoglobin Sodium Potassium Chloride Carbon Dioxide BUN Creatinine Glucose POC Glucose 114 H 135 H 123 H Lactic Acid Calcium Phosphorus Magnesium AST ALT Alkaline Phosphatase Lactate Dehydrogenase Troponin T C-Reactive Protein NT-Pro-B Natriuret Pep Total Protein Albumin LDL Cholesterol Direct Vitamin B12 Crossmatch 11/16/21 11/16/21 11/16/21 05:21 10:00 10:00 WBC 21.7 H RBC 2.57 L Hgb 6.0 L Hct 20.2 L D MCV MCH 24 L MCHC RDW 26.3 H Plt Count Seg Neuts % (Manual) Lymphocytes % (Manual) Seg Neutrophils # Man Lymphocytes # (Manual) Monocytes # (Manual) PT INR D-Dimer ABG pH ABG pO2 ABG HCO3 ABG O2 Saturation ABG Base Excess ABG Hemoglobin Oxyhemoglobin Sodium 153 H Potassium Chloride 114.9 H Carbon Dioxide BUN 74 H Creatinine Glucose 155 H POC Glucose 127 H Lactic Acid Calcium 8.1 L Phosphorus Magnesium AST ALT Alkaline Phosphatase Lactate Dehydrogenase Troponin T C-Reactive Protein NT-Pro-B Natriuret Pep Total Protein Albumin LDL Cholesterol Direct Vitamin B12 Crossmatch 11/16/21 11/16/21 11/16/21 11:34 14:00 15:25 WBC 17.2 H RBC 2.08 L Hgb 4.7 L* Hct 16.2 L* MCV 78 L MCH 23 L MCHC 29 L RDW 26.0 H Plt Count Seg Neuts % (Manual) 87.0 H Lymphocytes % (Manual) 8.0 L Seg Neutrophils # Man 15.0 H Lymphocytes # (Manual) Monocytes # (Manual) 0.9 H PT INR D-Dimer ABG pH ABG pO2 ABG HCO3 ABG O2 Saturation ABG Base Excess ABG Hemoglobin Oxyhemoglobin Sodium Potassium Chloride Carbon Dioxide BUN Creatinine Glucose POC Glucose 131 H Lactic Acid Calcium Phosphorus Magnesium AST ALT Alkaline Phosphatase Lactate Dehydrogenase Troponin T C-Reactive Protein NT-Pro-B Natriuret Pep Total Protein Albumin LDL Cholesterol Direct Vitamin B12 Crossmatch See Detail 11/16/21 11/16/21 11/16/21 15:25 17:21 22:43 WBC RBC Hgb 8.6 L D Hct 27.7 L D MCV MCH MCHC RDW Plt Count Seg Neuts % (Manual) Lymphocytes % (Manual) Seg Neutrophils # Man Lymphocytes # (Manual) Monocytes # (Manual) PT INR D-Dimer ABG pH ABG pO2 ABG HCO3 ABG O2 Saturation ABG Base Excess ABG Hemoglobin Oxyhemoglobin Sodium 148 H Potassium Chloride 113.2 H Carbon Dioxide BUN 84 H Creatinine Glucose 164 H POC Glucose 124 H Lactic Acid Calcium 7.6 L Phosphorus Magnesium AST ALT Alkaline Phosphatase Lactate Dehydrogenase Troponin T C-Reactive Protein NT-Pro-B Natriuret Pep Total Protein Albumin LDL Cholesterol Direct Vitamin B12 Crossmatch 11/16/21 11/17/21 11/17/21 23:07 05:33 05:56 WBC 25.1 H RBC 3.47 L Hgb 8.7 L Hct 28.5 L MCV MCH 25 L MCHC RDW 22.3 H Plt Count Seg Neuts % (Manual) Lymphocytes % (Manual) Seg Neutrophils # Man Lymphocytes # (Manual) Monocytes # (Manual) PT INR D-Dimer ABG pH ABG pO2 ABG HCO3 ABG O2 Saturation ABG Base Excess ABG Hemoglobin Oxyhemoglobin Sodium Potassium Chloride Carbon Dioxide BUN Creatinine Glucose POC Glucose 128 H 133 H Lactic Acid Calcium Phosphorus Magnesium AST ALT Alkaline Phosphatase Lactate Dehydrogenase Troponin T C-Reactive Protein NT-Pro-B Natriuret Pep Total Protein Albumin LDL Cholesterol Direct Vitamin B12 Crossmatch 11/17/21 11/17/21 11/17/21 05:56 11:00 11:55 WBC RBC Hgb 8.3 L Hct 26.9 L MCV MCH MCHC RDW Plt Count Seg Neuts % (Manual) Lymphocytes % (Manual) Seg Neutrophils # Man Lymphocytes # (Manual) Monocytes # (Manual) PT INR D-Dimer ABG pH ABG pO2 ABG HCO3 ABG O2 Saturation ABG Base Excess ABG Hemoglobin Oxyhemoglobin Sodium 151 H Potassium Chloride 113.6 H Carbon Dioxide BUN 85 H Creatinine Glucose 132 H POC Glucose 121 H Lactic Acid Calcium 7.8 L Phosphorus Magnesium AST ALT Alkaline Phosphatase Lactate Dehydrogenase Troponin T C-Reactive Protein NT-Pro-B Natriuret Pep Total Protein 5.1 L Albumin 2.2 L LDL Cholesterol Direct Vitamin B12 Crossmatch 11/17/21 11/17/21 11/18/21 18:04 18:55 00:26 WBC RBC Hgb 7.5 L 7.1 L Hct 24.8 L 23.6 L MCV MCH MCHC RDW Plt Count Seg Neuts % (Manual) Lymphocytes % (Manual) Seg Neutrophils # Man Lymphocytes # (Manual) Monocytes # (Manual) PT INR D-Dimer ABG pH ABG pO2 ABG HCO3 ABG O2 Saturation ABG Base Excess ABG Hemoglobin Oxyhemoglobin Sodium Potassium Chloride Carbon Dioxide BUN Creatinine Glucose POC Glucose 144 H Lactic Acid Calcium Phosphorus Magnesium AST ALT Alkaline Phosphatase Lactate Dehydrogenase Troponin T C-Reactive Protein NT-Pro-B Natriuret Pep Total Protein Albumin LDL Cholesterol Direct Vitamin B12 Crossmatch 11/18/21 11/18/21 11/18/21 00:43 05:10 05:10 WBC 12.5 H RBC 2.39 L Hgb 6.1 L Hct 20.2 L MCV MCH 25 L MCHC RDW 23.2 H Plt Count Seg Neuts % (Manual) Lymphocytes % (Manual) Seg Neutrophils # Man Lymphocytes # (Manual) Monocytes # (Manual) PT INR D-Dimer ABG pH ABG pO2 ABG HCO3 ABG O2 Saturation ABG Base Excess ABG Hemoglobin Oxyhemoglobin Sodium 131 L D Potassium 2.9 L* D Chloride 97.8 L Carbon Dioxide BUN 58 H Creatinine Glucose 665 H* POC Glucose 139 H Lactic Acid Calcium 7.0 L Phosphorus 2.20 L D Magnesium 1.50 L AST ALT Alkaline Phosphatase Lactate Dehydrogenase Troponin T C-Reactive Protein NT-Pro-B Natriuret Pep Total Protein Albumin LDL Cholesterol Direct Vitamin B12 Crossmatch 11/18/21 11/18/21 11/18/21 05:23 07:10 10:45 WBC RBC Hgb Hct MCV MCH MCHC RDW Plt Count Seg Neuts % (Manual) Lymphocytes % (Manual) Seg Neutrophils # Man Lymphocytes # (Manual) Monocytes # (Manual) PT INR D-Dimer ABG pH ABG pO2 ABG HCO3 ABG O2 Saturation ABG Base Excess ABG Hemoglobin Oxyhemoglobin Sodium 148 H D Potassium 3.1 L Chloride 111.9 H Carbon Dioxide BUN 63 H Creatinine Glucose 141 H POC Glucose 124 H Lactic Acid Calcium 8.1 L D Phosphorus Magnesium AST ALT Alkaline Phosphatase Lactate Dehydrogenase Troponin T C-Reactive Protein NT-Pro-B Natriuret Pep Total Protein Albumin LDL Cholesterol Direct Vitamin B12 Crossmatch See Detail 11/18/21 11/19/21 11/19/21 11:57 00:19 04:55 WBC RBC 3.35 L Hgb 9.0 L 8.9 L Hct 28.3 L D 28.1 L MCV MCH 27 L MCHC RDW 20.3 H Plt Count Seg Neuts % (Manual) Lymphocytes % (Manual) Seg Neutrophils # Man Lymphocytes # (Manual) Monocytes # (Manual) PT INR D-Dimer ABG pH ABG pO2 ABG HCO3 ABG O2 Saturation ABG Base Excess ABG Hemoglobin Oxyhemoglobin Sodium Potassium Chloride Carbon Dioxide BUN Creatinine Glucose POC Glucose 119 H Lactic Acid Calcium Phosphorus Magnesium AST ALT Alkaline Phosphatase Lactate Dehydrogenase Troponin T C-Reactive Protein NT-Pro-B Natriuret Pep Total Protein Albumin LDL Cholesterol Direct Vitamin B12 Crossmatch 02/02/22 02/02/22 02/03/22 04:55 05:42 00:55 WBC RBC Hgb 9.0 L Hct 28.6 L MCV MCH MCHC RDW Plt Count Seg Neuts % (Manual) Lymphocytes % (Manual) Seg Neutrophils # Man Lymphocytes # (Manual) Monocytes # (Manual) PT INR D-Dimer ABG pH ABG pO2 ABG HCO3 ABG O2 Saturation ABG Base Excess ABG Hemoglobin Oxyhemoglobin Sodium Potassium 3.5 L Chloride 108.6 H Carbon Dioxide BUN 47 H Creatinine Glucose 207 H POC Glucose 63 L Lactic Acid Calcium 7.1 L Phosphorus Magnesium AST ALT Alkaline Phosphatase Lactate Dehydrogenase Troponin T C-Reactive Protein NT-Pro-B Natriuret Pep Total Protein Albumin LDL Cholesterol Direct Vitamin B12 Crossmatch 11/20/21 11/20/21 11/20/21 05:40 05:40 Unknown WBC RBC 3.40 L Hgb 9.1 L Hct 28.8 L MCV MCH 27 L MCHC RDW 20.7 H Plt Count Seg Neuts % (Manual) Lymphocytes % (Manual) Seg Neutrophils # Man Lymphocytes # (Manual) Monocytes # (Manual) PT INR D-Dimer ABG pH ABG pO2 ABG HCO3 ABG O2 Saturation ABG Base Excess -2.7 L ABG Hemoglobin 9.5 L Oxyhemoglobin 94.3 L Sodium Potassium 3.5 L Chloride 108.9 H Carbon Dioxide BUN 37 H Creatinine Glucose 117 H POC Glucose Lactic Acid Calcium 7.5 L Phosphorus Magnesium AST ALT Alkaline Phosphatase Lactate Dehydrogenase Troponin T C-Reactive Protein NT-Pro-B Natriuret Pep Total Protein Albumin LDL Cholesterol Direct Vitamin B12 Crossmatch 11/21/21 11/21/21 11/21/21 04:30 04:30 16:00 WBC RBC 3.25 L Hgb 8.6 L Hct 28.1 L MCV MCH 26 L MCHC RDW 20.7 H Plt Count Seg Neuts % (Manual) Lymphocytes % (Manual) Seg Neutrophils # Man Lymphocytes # (Manual) Monocytes # (Manual) PT INR D-Dimer ABG pH ABG pO2 114.2 H ABG HCO3 ABG O2 Saturation ABG Base Excess ABG Hemoglobin 9.1 L Oxyhemoglobin Sodium 134 L Potassium Chloride Carbon Dioxide 20 L BUN 34 H Creatinine Glucose POC Glucose Lactic Acid Calcium 7.1 L Phosphorus Magnesium AST ALT Alkaline Phosphatase Lactate Dehydrogenase Troponin T C-Reactive Protein NT-Pro-B Natriuret Pep Total Protein Albumin LDL Cholesterol Direct Vitamin B12 Crossmatch 11/22/21 11/22/21 11/22/21 07:07 07:07 23:54 WBC RBC 3.30 L Hgb 9.0 L Hct 28.5 L MCV MCH 27 L MCHC RDW 21.0 H Plt Count Seg Neuts % (Manual) Lymphocytes % (Manual) Seg Neutrophils # Man Lymphocytes # (Manual) Monocytes # (Manual) PT INR D-Dimer ABG pH ABG pO2 ABG HCO3 ABG O2 Saturation ABG Base Excess ABG Hemoglobin Oxyhemoglobin Sodium Potassium Chloride Carbon Dioxide BUN 32 H Creatinine Glucose 106 H POC Glucose 110 H Lactic Acid Calcium 7.5 L Phosphorus Magnesium AST ALT Alkaline Phosphatase Lactate Dehydrogenase Troponin T C-Reactive Protein NT-Pro-B Natriuret Pep Total Protein Albumin LDL Cholesterol Direct Vitamin B12 Crossmatch 11/23/21 11/23/21 11/23/21 04:38 04:38 06:01 WBC RBC 3.23 L Hgb 8.8 L Hct 28.0 L MCV MCH 27 L MCHC RDW 21.3 H Plt Count Seg Neuts % (Manual) Lymphocytes % (Manual) Seg Neutrophils # Man Lymphocytes # (Manual) Monocytes # (Manual) PT INR D-Dimer ABG pH ABG pO2 ABG HCO3 ABG O2 Saturation ABG Base Excess ABG Hemoglobin Oxyhemoglobin Sodium 136 L Potassium Chloride Carbon Dioxide 20 L BUN 32 H Creatinine Glucose 109 H POC Glucose 115 H Lactic Acid Calcium 7.7 L Phosphorus Magnesium AST ALT Alkaline Phosphatase Lactate Dehydrogenase Troponin T C-Reactive Protein NT-Pro-B Natriuret Pep Total Protein Albumin LDL Cholesterol Direct Vitamin B12 Crossmatch 11/23/21 11/24/21 11/24/21 11:40 00:03 04:13 WBC RBC 3.18 L Hgb 8.5 L Hct 27.5 L MCV MCH 27 L MCHC RDW 21.6 H Plt Count Seg Neuts % (Manual) Lymphocytes % (Manual) Seg Neutrophils # Man Lymphocytes # (Manual) Monocytes # (Manual) PT INR D-Dimer ABG pH ABG pO2 ABG HCO3 ABG O2 Saturation ABG Base Excess ABG Hemoglobin Oxyhemoglobin Sodium Potassium Chloride Carbon Dioxide BUN Creatinine Glucose POC Glucose 117 H 111 H Lactic Acid Calcium Phosphorus Magnesium AST ALT Alkaline Phosphatase Lactate Dehydrogenase Troponin T C-Reactive Protein NT-Pro-B Natriuret Pep Total Protein Albumin LDL Cholesterol Direct Vitamin B12 Crossmatch 11/24/21 11/24/21 11/24/21 04:13 05:30 11:10 WBC RBC Hgb Hct MCV MCH MCHC RDW Plt Count Seg Neuts % (Manual) Lymphocytes % (Manual) Seg Neutrophils # Man Lymphocytes # (Manual) Monocytes # (Manual) PT INR D-Dimer ABG pH ABG pO2 ABG HCO3 ABG O2 Saturation ABG Base Excess ABG Hemoglobin Oxyhemoglobin Sodium Potassium Chloride Carbon Dioxide BUN 31 H Creatinine Glucose 101 H POC Glucose 115 H 107 H Lactic Acid Calcium 7.7 L Phosphorus Magnesium AST ALT Alkaline Phosphatase Lactate Dehydrogenase Troponin T C-Reactive Protein NT-Pro-B Natriuret Pep Total Protein Albumin LDL Cholesterol Direct Vitamin B12 Crossmatch 11/24/21 11/24/21 11/25/21 16:34 17:57 05:12 WBC RBC 3.11 L Hgb 8.2 L Hct 26.6 L MCV MCH 26 L MCHC RDW 21.3 H Plt Count Seg Neuts % (Manual) Lymphocytes % (Manual) Seg Neutrophils # Man Lymphocytes # (Manual) Monocytes # (Manual) PT INR D-Dimer ABG pH ABG pO2 ABG HCO3 ABG O2 Saturation ABG Base Excess ABG Hemoglobin Oxyhemoglobin Sodium Potassium Chloride Carbon Dioxide BUN Creatinine Glucose POC Glucose 115 H 110 H Lactic Acid Calcium Phosphorus Magnesium AST ALT Alkaline Phosphatase Lactate Dehydrogenase Troponin T C-Reactive Protein NT-Pro-B Natriuret Pep Total Protein Albumin LDL Cholesterol Direct Vitamin B12 Crossmatch 11/25/21 11/25/21 11/26/21 05:12 11:20 05:00 WBC RBC 3.30 L Hgb 8.8 L Hct 28.2 L MCV MCH 27 L MCHC RDW 20.7 H Plt Count Seg Neuts % (Manual) Lymphocytes % (Manual) Seg Neutrophils # Man Lymphocytes # (Manual) Monocytes # (Manual) PT INR D-Dimer ABG pH ABG pO2 ABG HCO3 ABG O2 Saturation ABG Base Excess ABG Hemoglobin Oxyhemoglobin Sodium Potassium Chloride Carbon Dioxide BUN 32 H Creatinine Glucose 118 H POC Glucose 118 H Lactic Acid Calcium 8.2 L Phosphorus Magnesium AST ALT Alkaline Phosphatase Lactate Dehydrogenase Troponin T C-Reactive Protein NT-Pro-B Natriuret Pep Total Protein Albumin LDL Cholesterol Direct Vitamin B12 Crossmatch 11/26/21 11/26/21 11/26/21 05:00 05:00 05:44 WBC RBC Hgb Hct MCV MCH MCHC RDW Plt Count Seg Neuts % (Manual) Lymphocytes % (Manual) Seg Neutrophils # Man Lymphocytes # (Manual) Monocytes # (Manual) PT 16.9 H INR 1.24 H D-Dimer ABG pH ABG pO2 ABG HCO3 ABG O2 Saturation ABG Base Excess ABG Hemoglobin Oxyhemoglobin Sodium Potassium Chloride Carbon Dioxide BUN 31 H Creatinine Glucose 104 H POC Glucose 110 H Lactic Acid Calcium 7.9 L Phosphorus Magnesium AST ALT Alkaline Phosphatase Lactate Dehydrogenase Troponin T C-Reactive Protein NT-Pro-B Natriuret Pep Total Protein Albumin LDL Cholesterol Direct Vitamin B12 Crossmatch 11/26/21 11/27/21 11/27/21 23:55 07:40 07:40 WBC RBC 3.18 L Hgb 8.5 L Hct 27.0 L MCV MCH 27 L MCHC RDW 21.2 H Plt Count Seg Neuts % (Manual) Lymphocytes % (Manual) Seg Neutrophils # Man Lymphocytes # (Manual) Monocytes # (Manual) PT INR D-Dimer ABG pH ABG pO2 ABG HCO3 ABG O2 Saturation ABG Base Excess ABG Hemoglobin Oxyhemoglobin Sodium Potassium Chloride Carbon Dioxide BUN 27 H Creatinine Glucose 112 H POC Glucose 63 L Lactic Acid Calcium 7.6 L Phosphorus Magnesium AST ALT Alkaline Phosphatase Lactate Dehydrogenase Troponin T C-Reactive Protein NT-Pro-B Natriuret Pep Total Protein Albumin LDL Cholesterol Direct Vitamin B12 Crossmatch 11/27/21 11/27/21 11/27/21 12:04 13:40 13:40 WBC RBC 3.31 L Hgb 8.7 L Hct 28.0 L MCV MCH 26 L MCHC RDW 20.7 H Plt Count Seg Neuts % (Manual) Lymphocytes % (Manual) Seg Neutrophils # Man Lymphocytes # (Manual) Monocytes # (Manual) PT INR D-Dimer ABG pH ABG pO2 ABG HCO3 ABG O2 Saturation ABG Base Excess ABG Hemoglobin Oxyhemoglobin Sodium 136 L Potassium Chloride Carbon Dioxide BUN 25 H Creatinine Glucose 127 H POC Glucose 109 H Lactic Acid Calcium 7.6 L Phosphorus Magnesium 1.40 L AST ALT Alkaline Phosphatase Lactate Dehydrogenase Troponin T C-Reactive Protein NT-Pro-B Natriuret Pep Total Protein Albumin LDL Cholesterol Direct Vitamin B12 Crossmatch 11/27/21 11/27/21 11/28/21 17:44 23:33 12:20 WBC RBC Hgb Hct MCV MCH MCHC RDW Plt Count Seg Neuts % (Manual) Lymphocytes % (Manual) Seg Neutrophils # Man Lymphocytes # (Manual) Monocytes # (Manual) PT INR D-Dimer ABG pH ABG pO2 ABG HCO3 ABG O2 Saturation ABG Base Excess ABG Hemoglobin Oxyhemoglobin Sodium Potassium Chloride Carbon Dioxide BUN Creatinine Glucose POC Glucose 107 H 108 H 114 H Lactic Acid Calcium Phosphorus Magnesium AST ALT Alkaline Phosphatase Lactate Dehydrogenase Troponin T C-Reactive Protein NT-Pro-B Natriuret Pep Total Protein Albumin LDL Cholesterol Direct Vitamin B12 Crossmatch 11/29/21 11/29/21 11/29/21 00:09 03:20 03:20 WBC RBC 3.05 L Hgb 8.2 L Hct 25.8 L MCV MCH 27 L MCHC RDW 20.9 H Plt Count Seg Neuts % (Manual) Lymphocytes % (Manual) Seg Neutrophils # Man Lymphocytes # (Manual) Monocytes # (Manual) PT INR D-Dimer ABG pH ABG pO2 ABG HCO3 ABG O2 Saturation ABG Base Excess ABG Hemoglobin Oxyhemoglobin Sodium 133 L Potassium Chloride Carbon Dioxide BUN 24 H Creatinine Glucose 137 H POC Glucose 134 H Lactic Acid Calcium 7.4 L Phosphorus Magnesium AST ALT Alkaline Phosphatase Lactate Dehydrogenase Troponin T C-Reactive Protein NT-Pro-B Natriuret Pep Total Protein Albumin LDL Cholesterol Direct Vitamin B12 Crossmatch 11/29/21 11/29/21 11/29/21 05:38 11:39 17:11 WBC RBC Hgb Hct MCV MCH MCHC RDW Plt Count Seg Neuts % (Manual) Lymphocytes % (Manual) Seg Neutrophils # Man Lymphocytes # (Manual) Monocytes # (Manual) PT INR D-Dimer ABG pH ABG pO2 ABG HCO3 ABG O2 Saturation ABG Base Excess ABG Hemoglobin Oxyhemoglobin Sodium Potassium Chloride Carbon Dioxide BUN Creatinine Glucose POC Glucose 117 H 143 H 124 H Lactic Acid Calcium Phosphorus Magnesium AST ALT Alkaline Phosphatase Lactate Dehydrogenase Troponin T C-Reactive Protein NT-Pro-B Natriuret Pep Total Protein Albumin LDL Cholesterol Direct Vitamin B12 Crossmatch 11/29/21 11/30/21 11/30/21 20:15 05:40 05:40 WBC 12.6 H RBC 3.41 L Hgb 9.1 L Hct 28.9 L MCV MCH 27 L MCHC RDW 20.4 H Plt Count Seg Neuts % (Manual) Lymphocytes % (Manual) Seg Neutrophils # Man Lymphocytes # (Manual) Monocytes # (Manual) PT INR D-Dimer ABG pH ABG pO2 ABG HCO3 ABG O2 Saturation ABG Base Excess ABG Hemoglobin Oxyhemoglobin Sodium Potassium Chloride Carbon Dioxide BUN 24 H Creatinine Glucose 131 H POC Glucose Lactic Acid Calcium 7.6 L Phosphorus Magnesium AST ALT Alkaline Phosphatase Lactate Dehydrogenase Troponin T 0.045 H C-Reactive Protein NT-Pro-B Natriuret Pep Total Protein Albumin LDL Cholesterol Direct 25 L Vitamin B12 Crossmatch 11/30/21 11/30/21 12/01/21 11:29 16:51 05:00 WBC RBC 2.97 L Hgb 8.0 L Hct 25.0 L MCV MCH 27 L MCHC RDW 20.8 H Plt Count Seg Neuts % (Manual) Lymphocytes % (Manual) Seg Neutrophils # Man Lymphocytes # (Manual) Monocytes # (Manual) PT INR D-Dimer ABG pH ABG pO2 ABG HCO3 ABG O2 Saturation ABG Base Excess ABG Hemoglobin Oxyhemoglobin Sodium Potassium Chloride Carbon Dioxide BUN Creatinine Glucose POC Glucose 123 H 114 H Lactic Acid Calcium Phosphorus Magnesium AST ALT Alkaline Phosphatase Lactate Dehydrogenase Troponin T C-Reactive Protein NT-Pro-B Natriuret Pep Total Protein Albumin LDL Cholesterol Direct Vitamin B12 Crossmatch 12/01/21 12/01/21 12/01/21 05:00 05:25 11:54 WBC RBC Hgb Hct MCV MCH MCHC RDW Plt Count Seg Neuts % (Manual) Lymphocytes % (Manual) Seg Neutrophils # Man Lymphocytes # (Manual) Monocytes # (Manual) PT INR D-Dimer ABG pH ABG pO2 ABG HCO3 ABG O2 Saturation ABG Base Excess ABG Hemoglobin Oxyhemoglobin Sodium 136 L Potassium Chloride Carbon Dioxide BUN 24 H Creatinine Glucose 117 H POC Glucose 108 H 107 H Lactic Acid Calcium 7.5 L Phosphorus Magnesium 1.60 L AST ALT Alkaline Phosphatase Lactate Dehydrogenase Troponin T C-Reactive Protein NT-Pro-B Natriuret Pep Total Protein Albumin LDL Cholesterol Direct Vitamin B12 Crossmatch 12/01/21 12/02/21 12/02/21 17:40 00:07 04:20 WBC RBC 2.92 L Hgb 7.7 L Hct 24.3 L MCV MCH 26 L MCHC RDW 20.5 H Plt Count Seg Neuts % (Manual) Lymphocytes % (Manual) Seg Neutrophils # Man Lymphocytes # (Manual) Monocytes # (Manual) PT INR D-Dimer ABG pH ABG pO2 ABG HCO3 ABG O2 Saturation ABG Base Excess ABG Hemoglobin Oxyhemoglobin Sodium Potassium Chloride Carbon Dioxide BUN Creatinine Glucose POC Glucose 123 H 110 H Lactic Acid Calcium Phosphorus Magnesium AST ALT Alkaline Phosphatase Lactate Dehydrogenase Troponin T C-Reactive Protein NT-Pro-B Natriuret Pep Total Protein Albumin LDL Cholesterol Direct Vitamin B12 Crossmatch 12/02/21 12/02/21 12/02/21 04:20 11:17 18:20 WBC RBC Hgb Hct MCV MCH MCHC RDW Plt Count Seg Neuts % (Manual) Lymphocytes % (Manual) Seg Neutrophils # Man Lymphocytes # (Manual) Monocytes # (Manual) PT INR D-Dimer ABG pH ABG pO2 ABG HCO3 ABG O2 Saturation ABG Base Excess ABG Hemoglobin Oxyhemoglobin Sodium 135 L Potassium Chloride Carbon Dioxide BUN 26 H Creatinine Glucose 121 H POC Glucose 117 H 113 H Lactic Acid Calcium 7.4 L Phosphorus Magnesium AST ALT Alkaline Phosphatase Lactate Dehydrogenase Troponin T C-Reactive Protein NT-Pro-B Natriuret Pep Total Protein Albumin LDL Cholesterol Direct Vitamin B12 Crossmatch 12/03/21 12/03/21 12/03/21 00:12 04:00 04:00 WBC RBC 2.99 L Hgb 7.8 L Hct 24.6 L MCV MCH 26 L MCHC RDW 20.2 H Plt Count Seg Neuts % (Manual) Lymphocytes % (Manual) Seg Neutrophils # Man Lymphocytes # (Manual) Monocytes # (Manual) PT INR D-Dimer ABG pH ABG pO2 ABG HCO3 ABG O2 Saturation ABG Base Excess ABG Hemoglobin Oxyhemoglobin Sodium 136 L Potassium Chloride Carbon Dioxide BUN 27 H Creatinine Glucose 133 H POC Glucose 121 H Lactic Acid Calcium 7.5 L Phosphorus Magnesium AST ALT Alkaline Phosphatase Lactate Dehydrogenase Troponin T C-Reactive Protein NT-Pro-B Natriuret Pep Total Protein Albumin LDL Cholesterol Direct Vitamin B12 Crossmatch 12/03/21 12/03/21 12/03/21 06:30 11:13 16:00 WBC RBC Hgb Hct MCV MCH MCHC RDW Plt Count Seg Neuts % (Manual) Lymphocytes % (Manual) Seg Neutrophils # Man Lymphocytes # (Manual) Monocytes # (Manual) PT INR D-Dimer ABG pH ABG pO2 ABG HCO3 ABG O2 Saturation ABG Base Excess ABG Hemoglobin Oxyhemoglobin Sodium Potassium Chloride Carbon Dioxide BUN Creatinine Glucose POC Glucose 129 H 125 H 125 H Lactic Acid Calcium Phosphorus Magnesium AST ALT Alkaline Phosphatase Lactate Dehydrogenase Troponin T C-Reactive Protein NT-Pro-B Natriuret Pep Total Protein Albumin LDL Cholesterol Direct Vitamin B12 Crossmatch 12/03/21 12/04/21 12/04/21 23:32 04:00 05:36 WBC RBC Hgb Hct MCV MCH MCHC RDW Plt Count Seg Neuts % (Manual) Lymphocytes % (Manual) Seg Neutrophils # Man Lymphocytes # (Manual) Monocytes # (Manual) PT INR D-Dimer ABG pH ABG pO2 ABG HCO3 ABG O2 Saturation ABG Base Excess ABG Hemoglobin Oxyhemoglobin Sodium Potassium 3.5 L Chloride Carbon Dioxide BUN 26 H Creatinine 0.5 L Glucose 151 H POC Glucose 133 H 142 H Lactic Acid Calcium 8.3 L Phosphorus Magnesium AST ALT Alkaline Phosphatase Lactate Dehydrogenase Troponin T C-Reactive Protein NT-Pro-B Natriuret Pep Total Protein Albumin LDL Cholesterol Direct Vitamin B12 Crossmatch 12/04/21 12/04/21 12/05/21 11:24 15:58 04:36 WBC RBC Hgb Hct MCV MCH MCHC RDW Plt Count Seg Neuts % (Manual) Lymphocytes % (Manual) Seg Neutrophils # Man Lymphocytes # (Manual) Monocytes # (Manual) PT INR D-Dimer ABG pH ABG pO2 ABG HCO3 ABG O2 Saturation ABG Base Excess ABG Hemoglobin Oxyhemoglobin Sodium Potassium Chloride Carbon Dioxide BUN 21 H Creatinine 0.5 L Glucose 119 H POC Glucose 130 H 111 H Lactic Acid Calcium 8.3 L Phosphorus Magnesium AST ALT Alkaline Phosphatase Lactate Dehydrogenase Troponin T C-Reactive Protein NT-Pro-B Natriuret Pep Total Protein Albumin LDL Cholesterol Direct Vitamin B12 Crossmatch 12/05/21 12/05/21 12/05/21 05:15 10:40 11:12 WBC RBC 2.98 L Hgb 8.1 L Hct 24.6 L MCV MCH 27 L MCHC RDW 20.8 H Plt Count Seg Neuts % (Manual) Lymphocytes % (Manual) Seg Neutrophils # Man Lymphocytes # (Manual) Monocytes # (Manual) PT INR D-Dimer ABG pH ABG pO2 ABG HCO3 ABG O2 Saturation ABG Base Excess ABG Hemoglobin Oxyhemoglobin Sodium Potassium Chloride Carbon Dioxide BUN Creatinine Glucose POC Glucose 107 H 110 H Lactic Acid Calcium Phosphorus Magnesium AST ALT Alkaline Phosphatase Lactate Dehydrogenase Troponin T C-Reactive Protein NT-Pro-B Natriuret Pep Total Protein Albumin LDL Cholesterol Direct Vitamin B12 Crossmatch Allied health notes reviewed: RT
[2021-12-05] MEDS: SENNOSIDES ORAL LIQD 8.8 MG/5 ML ORAL LIQD PO SCH ×2 (17:46→21:21)
[2021-12-05] MEDS: DOCUSATE SODIUM 100 MG/10 ML ORAL LIQD PO SCH ×2 (17:47→21:22)
[2021-12-05] MEDS: POLYETHYLENE GLYCOL 3350 17 GM POWDER PO SCH (17:47)
[2021-12-05] MEDS: QUEtiapine 25 MG TAB PO SCH (21:21)
[2021-12-05] MEDS: MELATONIN 5 MG TAB PO SCH (21:22)
[2021-12-05] MEDS: METOPROLOL TARTRATE 25 MG TAB PO SCH (21:23)
[2021-12-06 05:25] LABS: Hematocrit 24.7 % (30.3-42.9); Hemoglobin 7.9 gm/dl (10.1-14.3); Mean Corpuscular HGB Conc 32 % (30-34); Mean Corpuscular Volume 84 fl (79-97); Platelet Count 207 K/mm3 (140-440); Red Blood Count 2.95 M/mm3 (3.65-5.03)
[2021-12-06 05:37] LABS: Red Cell Distribution Width 20.9 % (13.2-15.2)
[2021-12-06 05:47] LABS: BUN/Creatinine Ratio 44; Blood Urea Nitrogen 22 mg/dL (7-17); Calcium 8.2 mg/dL (8.4-10.2); Hemolysis Index 0
[2021-12-06] MEDS: SUCRALFATE 1 GM/10 ML ORAL LIQD PO SCH ×5 (10:00→22:11)
[2021-12-06] MEDS: HYDROcodone/ACETAMINOPHEN 10-325MG TAB FEEDTUBE SCH ×3 (10:01→20:52)
[2021-12-06] MEDS: SENNOSIDES ORAL LIQD 8.8 MG/5 ML ORAL LIQD PO SCH ×2 (10:33→22:12)
[2021-12-06] MEDS: METOPROLOL TARTRATE 25 MG TAB PO SCH ×2 (10:33→22:10)
[2021-12-06] MEDS: POLYETHYLENE GLYCOL 3350 17 GM POWDER PO SCH (10:34)
[2021-12-06] MEDS: DOCUSATE SODIUM 100 MG/10 ML ORAL LIQD PO SCH ×2 (10:34→22:12)
[2021-12-06] MEDS: LANSOPRAZOLE 30 MG SOLUTAB FEEDTUBE SCH ×2 (10:35→22:11)
[2021-12-06] MEDS: busPIRone 5 MG TAB PO SCH ×2 (10:35→22:11)
[2021-12-06] MEDS: GABAPENTIN 100 MG CAP PO SCH (10:35)
[2021-12-06] MEDS: INSULIN LISPRO 100 UNIT/ML SUB-Q SCH ×2 (12:00→17:54)
--- NOTE | 2021-12-06 12:16 | Progress Note ---
<LONNIE MAURICE - Last Filed: 12/06/21 18:06> Assessment and Plan Assessment and plan: This is a 81-year-old female with known history of diabetes mellitus, hypertension, PPM, and arthritis admitted for sepsis and acute hypoxia respiratory failure 2/2 bilateral pneumonia requiring intubation and ventilatory support Hospital Course to date: 11/04/2021: Empiric therapy with iv levaquin/vancomycin. COVID PCR pending. Will consult ID. PCCM consulted, will follow recs. Hypotensive this AM, ordered bolus and fluids at 150 cc/hr. May require pressor support if bp does not improve. 11/05/2021: GBS on bcx +, currently on rocephin IV. Currently on bipap due to respiratory distress overnight. Worsening BL opacities on CXR. May be volume overload vs pneumonia. Unfortunately bp too low for lasix at this point. WIll continue levophed and bipap. Once able to tolerate, may do trial of albumin/lasi x. Call attempt made to Nir[facility], no response. Will try again tomorrow to update. 11/06/2021: Decompensated overnight requiring intubation. CXR shows worsening interstitial infiltrates. Currenlty on dopamine, levophed, vasopressin. PICC line ordered. Advised RN to place gamble for I/O monitoring. Would benefit from diuresis but very volume overloaded. Prognosis guarded 11/08: Off sedation this am, remains unresponsive only grimace to pain. Hold all sedatives agents for now, patient is off pressors this am. Hypernatremia from today's lab- D5W X1bag, and low K repleted, repeat lab in the am. Severe constipation also noted from KUB, BR added. 11/09: Sudden SPO2 drop in the 60s this am. Patient was manually bagged and deep suctioned. Patient is currently stable on the vent, repeat CXR with no significant change. D/w CCM Mucomyst and brochodilator added. Patient mentation is unchanged, continue to hold off on sedative agents. Neurology consulted. 11/10: Acute DVT noted on bilateral lower extremity Doppler ultrasound therefore she was started on Lovenox treatment dose. Failed SBT. Hypernatremia and hyperchloremia noted, free water flush adjusted. 11/11: Patient noted to be febrile with increasing of the cytosis, UA/BC sent and CXR ordered. ID escalated antibiotics to cefepime. CXR demonstrated mucous plug, bedside bronchoscopy was performed and O ETT was changed over bougie from 6 cm to 7.5. Patient was noted to have a pneumothorax postprocedure and chest tube was placed. Family updated by [facility]. Free water flush increased and will add Jaswant supplementation. 11/12: Patient not noted to follow commands, hypernatremia worsen/persist, increasing free water flush, potassium and magnesium and phosphorus repleted. Hemoglobin noted to be 7.1/24.5 from 7.03/12 yesterday. We will continue to trend and monitor. Vent changes per [facility]. Repeat CXR showed no residual pneumo thorax. Consider waterseal tomorrow. Given persistent leukocytosis antibiotics escalated to cefepime per ID. 11/13: Remains on cefepime and vancomycin, vent changes per [facility]. Anemia noted and given 1 unit PRBC. And beta-charleen held in setting of Levophed drip infusing. Remains on fentanyl drip. 11/14: Patient put on CPAP trial by [facility], will continue chest tube until after extubation. Will rest on assist control. CT brain was cancelled by [employer] and reordered. 11/15: Patient removed chest tube overnight. Will obtain cxr. remains on low dose levo. CTH completed with no acute findings. RT to place on CPAP. 11/16: Hypernatremia/hyperchloremia noted on the increase of day water flushes. Anemia noted and ordered PRBC. asked RT to place on cpap but not done yet 11/17: Patient remains on the vent, awake and following commands. H&H stable s/p 2units PRBCs. GI on consult, no intervention at this time. Will continue protonix gtt and serial H&H Q6hrs. Keep patient NPO for now, D5w added for hypernatremia and NPO status. Plan for IVC filter placement today by Vascular. 11/18: Patient is s/p IVC filter. H&H continue to trend down, hbg 6.1 this am, 1 unit of PRBCs ordered. Plan for possible EGD today by GI. Keep patient NPO, continue PPI drip and serial H&H Q6hrs. Electrolytes repleted, repeat lab in the am 11/19: S/p EGD- larger duodenal ulcer noted, see operative note. GI recommendat ions noted also noted. H&H stable this am. Keep patient on protonix gtt for now. Will keep patient NPO, continue IVF and serial H&H for now. Electrolytes repleted, repeat labs in the am 2/3: Very agitated and restless this am, fentanyl gtt resumed. Patient remains on protonix gtt, H&H remains stable. Will switch protonix gtt to IV BID, continue carafate and okay to resume meds at this time. Will F/u with GI to see if TF can be resumed. Gamble was reinserted overnight for retention. Electrolytes repleted, repeat in the am. Plan for possible PST today for possible extubation per CCM. 11/21: Patient is now on seroquel and patient's home buspar resumed. Patient more calm this morning, fentanyl gtt is off. H&H remains stable and patient is tolerating TF. Patient had a runs of Vtach/PVCs this am, BB added per Cardio. Continue daily PS and wean trial for possible extubation. 11/22: Back on fentanyl gtt overnight , RASS o to -1, following commands. Patient failed PST this am due to increased work of breathing and low SPO2, ABG pending. Patient is also with worsen pitting edema, lasix is still on hold. Will discuss with cardio and CCM to possibly resume lasix. 11/23: MARIA DEL CARMEN overnight. Patient failed PST again this am. Per CCM plan for possible trach and PEG, hold off on IV lasix for now. General surgery consulted and family is aware of possible Trach and PEG. 11/24: Trach/PEG pending this week, continue SBT/SAT as tolerated. No acute events reported overnight. 11/25: Patient was n.p.o. overnight and will remain n.p.o. tonight for trach/PEG tomorrow morning. She failed to support trial again. KUB obtained due to distended belly. 11/26: Patient scheduled for tracheostomy and PEG tube placement today, has been n.p.o. since midnight. No acute events reported overnight. [facility] ordered rosalinda thicone scheduled. 11/27: No acute events reported overnight, patient received trach/PEG yesterday. Has been on feedings since last night. Still awaiting LTAC placement. 11/28: Patient magnesium repleted, repeat a.m. labs, SBT 11/29: Patient complains of chest pain but ECG obtained which showed no acute findings, ordered troponin. Patient failed CPAP yesterday and was trialed again today. levophed was restarted but will aggressively wean 11/30: Patient failed SBT. Continue supportive care. Started gabapentin today 12/01: MARIA DEL CARMEN overnight. Continue daily PST. Case management to arrange possible placement 12/02: Report of dark stools overnight, patient is hemodynamically stable. H&H stable, patient is on PPI. Will continue to trend H&H. Continue daily PST as tolerated. Awaiting LTAC vs SNF placement. 12/03: Hypotensive overnight, requiring low dose pressors. S/p X3 days of gentle diurese. Will continue to monitor, wean off pressors as tolerated for MAP of 65. Patient Failed PST yesterday, case management to follow up with insurance for possible LTAC placement. Continue daily PST as tolerated. PT eval and treat ordered. 12/04: Increased agitation and anxiety overnight, remains on buspar and seroquel, trazadone added to promote rest. Patient is now working with PT, keep patient engage and awake during the day so she can rest at night. No BM for over 5 days, BR was adjusted. Patient did not tolerate PST again yesterday, continue daily PST as tolerated. Continue to titrate pressor for MAP above 65. Pending possible LTAC placement, case management to arrange. 12/05: Still not getting much rest overnight, will add melatonin for sleep. Continue to engage patient during the day and promote rest at night. TF was held due to concern for possible bleeding, H&H remains stable and stools normal this am. Resume TF and continue PPI and carafate. Remains on low dose levophed, titrate as tolerated. Continue daily PST. Possible LTAC placement, awaiting approval. 12/06: MARIA DEL CARMEN overnight. Patient rested overnight. Continue supportive measures. Daily PST as tolerated. Awaiting possible LTAC placement Assessment and Plan #Septic Shock POA #Bilateral Pneumonia #Bacteremia - Presented with fevers, leukocytosis, and hypotension - COVID PCR negative - 11/04 Bcult with 3/4 group B strep bacteremia - Repeat Bculture NGTD - 11/04 2D Echo with no evidence of vegetation - ID on consult, appreciate recommendations - Patient completed IV Abx course - F/u on culture data - Trend CBC #Acute Hypoxic Respiratory Failure 11/19 #Bilateral Pleural Effusion #Right Pneumothorax-resolved #Bilateral Pneumonia - COVID PCR negative - CXR shows Bilateral opacities, may be volume overloaded - CCM consulted, appreciate recommendations - Intubated on 11/06, ETT exchanged on 11/11 - 11/11 Bronchoscopy--Complicated by spontaneous pneumothorax - 11/11 S/p chest tube placement for right pneumothorax, removed by patient on 11/15 - 11/26 s/p Tracheostomy and PEGtube placement - This am Vent Setting:CPAP-25%,6 PS-12 - Continue Nebs treatment - Continue daily PST as tolerated - VAP bundle addressed - Aspiration precaution HOB above 30 - ABG and CXR per CCM - Continue SPO2 monitoring for SPO2 goal above 92% #CHF- EF 30-35% with PPM #Hypotension #Septic Kristian-resolved - SR on the monitor, HR 70-90s - 11/04 Echo-EF 30-35% - Cardiology on consult - Continue beta-charleen - Not on aspirin due to allergy - Statins resumed - Continue blood pressure monitor per protocol - Maintain MAP above 65 #Acute Blood Loss #Acute GI Bleed #Acute Microcytic Anemia - Report of melena &black tarry stools - s/p a total of 5units of PRBCs since admit - H&H remains stable post EGD - GI on consult - 11/18 EGD- Large cratered ulcer in the posterior duodenal bulb about 2 cm in diameter. Visible vessel present. Mild active oozing from the ulcer bed. A total of 3 injections were performed around the ulcer for a total of 2.5 cc of dilute epinephrine and hemostasis was obtained.--> See full report - Continue PPI and Carafate - Patient is tolerating TF - Continue to trend CBC - Transfuse for H&H less than 7 - Hold AC for now #Hypokalemia- resolved #Hyponatremia-improved - Strict intake and output - Continue to monitor and replace electrolytes as needed - Trend BMP,mag, & phosp #Urinary Retention - Gamble reinserted on 11/19 for retention - Keep gamble for now #Acute DVT in RLE - BLE doppler + Acute DVT in the right external iliac vein, common femoral vein, and superior aspect of femoral vein - Was on Therapeutic Lovenox- held to due GI Bleed - 11/17 s/p IVC filter placement by Vascular Surg #Agitation #Acute Encephalopathy-Resolved - Awake and following commands - Continue Buspar and seroquel - CT head noted - Neurology consulted - PRN analgesia for pain management #Transaminitis/Shock Liver - Probably due to bacteria/spetic shock - Continue to Trend LFTs #Endo: h/o DM and hypothyroidism - Continue home Synthroid - Accu-Cheks every 6 - Avoid hypoglycemia The high probability of a clinically significant, sudden or life threatening deterioration of the [multi] system(s) required my full and direct attention, intervention and personal management. The aggregate critical care time was [60] minutes. This time is in addition to time spent performing reported procedures but includes the following: [x] Data Review and interpretation [x] Patient assessment and monitoring of vital signs [x] Documentation [x] Medication orders and management Disposition Plan: ICU Total Time Spent with Patient (Minutes): 60 History Interval history: Patient seen and examined at the bedside. Remains stable. Back on low dose Levophed gtt this am. otherwise, MARIA DEL CARMEN overnight Hospitalist Physical - Constitutional Vitals: Temp Pulse Resp BP Pulse Ox 98.2 F 75 16 110/39 92 12/06/21 08:00 12/06/21 11:31 12/06/21 11:31 12/06/21 11:31 12/06/21 11:31 General appearance: Present: no acute distress, other (Trah and on the vent) - EENT Eyes: Present: PERRL, EOM intact ENT: hearing intact - Neck Neck: Present: normal ROM - Respiratory Respiratory effort: normal Respiratory: bilateral: rhonchi - Cardiovascular Rhythm: regular Heart Sounds: Present: S1 & S2 - Extremities Extremities: no ischemia, pulses intact, pulses symmetrical Extremity abnormal: edema - Peripheral Assessment Generalized Edema Type: Pitting Edema Degree: 2+ Capillary Refill: < 3 seconds Skin Temperature: Warm Peripheral Pulses: within normal limits - Abdominal General gastrointestinal: soft, non-distended, normal bowel sounds - Integumentary Integumentary: Present: warm, dry - Psychiatric Psychiatric: appropriate mood/affect, cooperative - Neurologic Neurologic: moves all extremities - Allied Health Allied health notes reviewed: nursing, case management HEART Score - HEART Score Troponin: Troponin T 0.045 ng/mL (0.00-0.029) H 11/29/21 20:15 Results - Labs CBC & Chem 7: 12/06/21 04:25 12/06/21 04:25 Labs: Laboratory Last Values WBC 8.1 K/mm3 (4.5-11.0) 12/06/21 04:25 RBC 2.95 M/mm3 (3.65-5.03) L 12/06/21 04:25 Hgb 7.9 gm/dl (10.1-14.3) L 12/06/21 04:25 Hct 24.7 % (30.3-42.9) L 12/06/21 04:25 MCV 84 fl (79-97) 12/06/21 04:25 MCH 27 pg (28-32) L 12/06/21 04:25 MCHC 32 % (30-34) 12/06/21 04:25 RDW 20.9 % (13.2-15.2) H 12/06/21 04:25 Plt Count 207 K/mm3 (140-440) 12/06/21 04:25 Add Manual Diff Complete 11/16/21 15:25 Total Counted 100 11/16/21 15:25 Seg Neutrophils % Nurse'S Aides Teacher 11/06/21 15:50 Seg Neuts % (Manual) 87.0 % (40.0-70.0) H 11/16/21 15:25 Band Neutrophils % 0 % 11/16/21 15:25 Lymphocytes % (Manual) 8.0 % (13.4-35.0) L 11/16/21 15:25 Reactive Lymphs % (Man) 0 % 11/16/21 15:25 Monocytes % (Manual) 5.0 % (0.0-7.3) 11/16/21 15:25 Eosinophils % (Manual) 0 % (0.0-4.3) 11/16/21 15:25 Basophils % (Manual) 0 % (0.0-1.8) 11/16/21 15:25 Metamyelocytes % 0 % 11/16/21 15:25 Myelocytes % 0 % 11/16/21 15:25 Promyelocytes % 0 % 11/16/21 15:25 Blast Cells % 0 % 11/16/21 15:25 Nucleated RBC % Not Reportable 11/16/21 15:25 Seg Neutrophils # Man 15.0 K/mm3 (1.8-7.7) H 11/16/21 15:25 Band Neutrophils # 0.0 K/mm3 11/16/21 15:25 Lymphocytes # (Manual) 1.4 K/mm3 (1.2-5.4) 11/16/21 15:25 Abs React Lymphs (Man) 0.0 K/mm3 11/16/21 15:25 Monocytes # (Manual) 0.9 K/mm3 (0.0-0.8) H 11/16/21 15:25 Eosinophils # (Manual) 0.0 K/mm3 (0.0-0.4) 11/16/21 15:25 Basophils # (Manual) 0.0 K/mm3 (0.0-0.1) 11/16/21 15:25 Metamyelocytes # 0.0 K/mm3 11/16/21 15:25 Myelocytes # 0.0 K/mm3 11/16/21 15:25 Promyelocytes # 0.0 K/mm3 11/16/21 15:25 Blast Cells # 0.0 K/mm3 11/16/21 15:25 WBC Morphology Not Reportable 11/16/21 15:25 Hypersegmented Neuts Not Reportable 11/16/21 15:25 Hyposegmented Neuts Not Reportable 11/16/21 15:25 Hypogranular Neuts Not Reportable 11/16/21 15:25 Smudge Cells Not Reportable 11/16/21 15:25 Toxic Granulation Not Reportable 11/16/21 15:25 Toxic Vacuolation Not Reportable 11/16/21 15:25 Dohle Bodies Not Reportable 11/16/21 15:25 Pelger-Huet Anomaly Not Reportable 11/16/21 15:25 Irina Rods Not Reportable 11/16/21 15:25 Platelet Estimate Consistent w auto 11/16/21 15:25 Clumped Platelets Rare 11/16/21 15:25 Plt Clumps, EDTA Not Reportable 11/16/21 15:25 Large Platelets Not Reportable 11/16/21 15:25 Giant Platelets Not Reportable 11/16/21 15:25 Platelet Satelliting Not Reportable 11/16/21 15:25 Plt Morphology Comment Not Reportable 11/16/21 15:25 RBC Morphology Not Reportable 11/16/21 15:25 Dimorphic RBCs Not Reportable 11/16/21 15:25 Polychromasia Not Reportable 11/16/21 15:25 Hypochromasia 2+ 11/16/21 15:25 Poikilocytosis Not Reportable 11/16/21 15:25 Anisocytosis 2+ 11/16/21 15:25 Microcytosis Not Reportable 11/16/21 15:25 Macrocytosis Not Reportable 11/16/21 15:25 Spherocytes Not Reportable 11/16/21 15:25 Pappenheimer Bodies Not Reportable 11/16/21 15:25 Sickle Cells Not Reportable 11/16/21 15:25 Target Cells 2+ 11/16/21 15:25 Tear Drop Cells Not Reportable 11/16/21 15:25 Ovalocytes Not Reportable 11/16/21 15:25 Helmet Cells Not Reportable 11/16/21 15:25 Odonnell-Dovray Bodies Not Reportable 11/16/21 15:25 [place] Rings Not Reportable 11/16/21 15:25 Malcom Cells Not Reportable 11/16/21 15:25 Bite Cells Not Reportable 11/16/21 15:25 Crenated Cell Not Reportable 11/16/21 15:25 Elliptocytes Not Reportable 11/16/21 15:25 Acanthocytes (Spur) Not Reportable 11/16/21 15:25 Rouleaux Not Reportable 11/16/21 15:25 Hemoglobin C Crystals Not Reportable 11/16/21 15:25 Schistocytes Not Reportable 11/16/21 15:25 Malaria parasites Not Reportable 11/16/21 15:25 Godfrey Bodies Not Reportable 11/16/21 15:25 Hem Pathologist Commnt No 11/16/21 15:25 PT 16.9 Sec. (12.2-14.9) H 11/26/21 05:00 INR 1.24 (0.87-1.13) H 11/26/21 05:00 APTT 29.2 Sec. (24.2-36.6) 11/26/21 05:00 D-Dimer 2655.00 ng/mlDDU (0-234) H 11/11/21 04:28 ABG pH 7.449 pH Units (7.350-7.450) 11/21/21 16:00 ABG pCO2 32.1 mm Hg 11/21/21 16:00 ABG pO2 114.2 mm Hg (80.0-90.0) H 11/21/21 16:00 ABG HCO3 21.8 mmol/L (20.0-26.0) 11/21/21 16:00 ABG O2 Saturation 98.3 % (95.0-99.0) 11/21/21 16:00 ABG O2 Content 12.5 (0.0-44) 11/21/21 16:00 ABG Base Excess -1.7 mmol/L (-2.0-3.0) 11/21/21 16:00 ABG Hemoglobin 9.1 gm/dl (12.0-16.0) L 11/21/21 16:00 ABG Carboxyhemoglobin 1.9 % (0.0-5.0) 11/21/21 16:00 ABG Methemoglobin 0.5 % (0.0-1.5) 11/21/21 16:00 Oxyhemoglobin 96.0 % (95.0-99.0) 11/21/21 16:00 FiO2 30 % 11/21/21 16:00 Sodium 137 mmol/L (137-145) 12/06/21 04:25 Potassium 3.8 mmol/L (3.6-5.0) 12/06/21 04:25 Chloride 101.6 mmol/L (98-107) 12/06/21 04:25 Carbon Dioxide 28 mmol/L (22-30) 12/06/21 04:25 Anion Gap 11 mmol/L 12/06/21 04:25 BUN 22 mg/dL (7-17) H 12/06/21 04:25 Creatinine 0.5 mg/dL (0.6-1.2) L 12/06/21 04:25 Estimated GFR > 60 ml/min 12/06/21 04:25 BUN/Creatinine Ratio 44 % 12/06/21 04:25 Glucose 136 mg/dL (65-100) H 12/06/21 04:25 POC Glucose 126 mg/dL (70-105) H 12/06/21 11:27 Lactic Acid 3.70 mmol/L (0.7-2.0) H* 11/03/21 22:32 Calcium 8.2 mg/dL (8.4-10.2) L 12/06/21 04:25 Phosphorus 2.90 mg/dL (2.5-4.5) 12/05/21 04:36 Magnesium 2.00 mg/dL (1.7-2.3) 12/05/21 04:36 Ferritin 52.6 ng/mL (10.0-200.0) 11/05/21 06:11 Total Bilirubin 0.50 mg/dL (0.1-1.2) 11/17/21 05:56 Direct Bilirubin < 0.2 mg/dL (0-0.2) 11/11/21 04:28 Indirect Bilirubin 0.1 mg/dL 11/11/21 04:28 AST 36 units/L (5-40) 11/17/21 05:56 ALT 47 units/L (7-56) 11/17/21 05:56 Alkaline Phosphatase 107 units/L (35-129) 11/17/21 05:56 Ammonia 42.0 umol/L (25-60) 11/10/21 14:08 Lactate Dehydrogenase 187 units/L (91-180) H 11/05/21 06:11 Troponin T 0.045 ng/mL (0.00-0.029) H 11/29/21 20:15 C-Reactive Protein 22.20 mg/dL (0.00-1.30) H 11/05/21 06:11 NT-Pro-B Natriuret Pep 7895 pg/mL (0-900) H 11/03/21 22:32 Total Protein 5.1 g/dL (6.3-8.2) L 11/17/21 05:56 Albumin 2.2 g/dL (3.9-5) L 11/17/21 05:56 Albumin/Globulin Ratio 0.8 % 11/17/21 05:56 Triglycerides 59 mg/dL (2-149) 11/29/21 20:15 Cholesterol 74 mg/dL (50-199) 11/29/21 20:15 LDL Cholesterol Direct 25 mg/dL (50-130) L 11/29/21 20:15 HDL Cholesterol 41 mg/dL (40-59) 11/29/21 20:15 Cholesterol/HDL Ratio 1.80 % 11/29/21 20:15 Vitamin B12 1823 pg/mL (211-911) H 11/10/21 14:08 TSH 1.510 mlU/mL (0.270-4.200) 11/10/21 14:08 Urine Color Yellow (Yellow) 11/11/21 09:00 Urine Turbidity Slightly-cloudy (Clear) 11/11/21 09:00 Urine pH 5.0 (5.0-7.0) 11/11/21 09:00 Ur Specific Irving 1.009 (1.003-1.030) 11/11/21 09:00 Urine Protein <15 mg/dl mg/dL (Negative) 11/11/21 09:00 Urine Glucose (UA) Neg mg/dL (Negative) 11/11/21 09:00 Urine Ketones Neg mg/dL (Negative) 11/11/21 09:00 Urine Blood Mod (Negative) 11/11/21 09:00 Urine Nitrite Neg (Negative) 11/11/21 09:00 Urine Bilirubin Neg (Negative) 11/11/21 09:00 Urine Urobilinogen < 2.0 mg/dL (<2.0) 11/11/21 09:00 Ur Leukocyte Esterase Neg (Negative) 11/11/21 09:00 Urine WBC (Auto) < 1.0 /HPF (0.0-6.0) 11/11/21 09:00 Urine RBC (Auto) < 1.0 /HPF (0.0-6.0) 11/11/21 09:00 Coronavirus (PCR) Negative (Negative) 11/10/21 08:30 Blood Type O POSITIVE 11/18/21 10:45 Antibody Screen Negative 11/18/21 10:45 Crossmatch See Detail 11/18/21 10:45 Gamble/IV: Voiding Method Indwelling Catheter Active Medications - Current Medications Current Medications: Generic Name Dose Route Start Last Admin Trade Name Freq PRN Reason Stop Dose Admin Hydrocodone Bitart/Acetaminophen 1 each 11/21/21 10:00 12/06/21 10:01 Hydrocodone/Acetaminophen 10-325mg Tab FEEDTUBE 1 each TID YOSSI Administration Lipase/Protease/Amylase 1 each 11/08/21 11:09 Lipase 10,500/Protease 25,000/Amylase 43,750 (Units) Dr Cap FEEDTUBE PRN PRN For Clogged Feeding Tube Buspirone HCl 7.5 mg 11/17/21 22:00 12/06/21 10:35 Buspirone 5 Mg Tab PO 7.5 mg BID YOSSI Administration Dextrose 0 ml 11/10/21 10:52 11/21/21 16:27 Dextrose 10% *Hypoglycemia IV 50 ml PRN PRN Administration Hypoglycemia Docusate Sodium 100 mg 12/04/21 11:00 12/06/21 10:34 Docusate Sodium 100 Mg/10 Ml Oral Liqd PO Not Given BID YOSSI Fentanyl 1 applic 11/17/21 13:00 12/05/21 09:48 Fentanyl 25 Mcg/Hr Patch 72hr TD 1 applic Q3D YOSSI Administration Gabapentin 100 mg 12/01/21 10:00 12/06/21 10:35 Gabapentin 100 Mg Cap PO 100 mg QDAY YOSSI Administration Hydrophilic Ointment 1 applic 11/06/21 04:02 Lip Therapy Vaseline TP Q2HR PRN Dry Lips NORepinephrine/NS 8 MG-250 ML 8 mg in 250 mls @ 3.75 mls/hr 11/29/21 00:00 12/05/21 23:12 Norepinephrine/Ns 8 Mg-250 Ml (Double Conc) IV 6 mcg/min TITRATE YOSSI 11.25 mls/hr Titration Protocol 2 MCG/MIN Insulin Human Lispro 0 unit 11/06/21 12:00 12/06/21 12:00 Insulin Lispro 100 Unit/Ml SUB-Q Not Given Q6HR [facility] Protocol Lansoprazole 30 mg 11/24/21 22:00 12/06/21 10:35 Lansoprazole 30 Mg Solutab FEEDTUBE 30 mg BID YOSSI Administration Levothyroxine Sodium 125 mcg 11/05/21 07:00 12/05/21 06:21 Levothyroxine 125 Mcg Tab PO 125 mcg DAILY@0600 YOSSI Administration Melatonin 5 mg 12/05/21 22:00 12/05/21 21:22 Melatonin 5 Mg Tab PO 5 mg QHS YOSSI Administration Metoprolol Tartrate 12.5 mg 11/21/21 10:00 12/06/21 10:33 Metoprolol Tartrate 25 Mg Tab PO Not Given BID YOSSI Multi-Ingred Cream/Lotion/Oil/Oint 1 applic 11/06/21 04:02 Mineral Oil/Petrolatum, White Ophth Oint 3.5 Gm OU Q4HR PRN Dry Eye(s) Nitroglycerin 0.4 mg 11/30/21 11:36 Nitroglycerin 0.4 Mg Tab Subl SL .Q5MIN PRN Chest Pain Ondansetron HCl 4 mg 12/05/21 10:00 12/05/21 09:27 Ondansetron 4 Mg/2 Ml Inj IV 4 mg Q8H PRN Administration Nausea And Vomiting Polyethylene Glycol 17 gm 12/02/21 10:00 12/06/21 10:34 Polyethylene Glycol 3350 17 Gm Powder PO Not Given QDAY YOSSI Pravastatin Sodium 20 mg 11/18/21 22:00 12/04/21 21:28 Pravastatin 20 Mg Tab PO 20 mg QHS YOSSI Administration Quetiapine Fumarate 50 mg 12/01/21 22:00 12/05/21 21:21 Quetiapine 25 Mg Tab PO 50 mg QHS YOSSI Administration Senna 17.6 mg 11/08/21 22:00 12/06/21 10:33 Sennosides Oral Liqd 8.8 Mg/5 Ml Oral Liqd PO Not Given Q12HR YOSSI Simple Syrup 15 ml 11/08/21 11:09 Simple Syrup 15 Ml FEEDTUBE PRN PRN Hypoglycemia Simple Syrup 30 ml 11/08/21 11:09 Simple Syrup 15 Ml FEEDTUBE PRN PRN Hypoglycemia Sodium Bicarbonate 325 mg 11/08/21 11:09 Sodium Bicarbonate 325 Mg Tab FEEDTUBE PRN PRN For Clogged Feeding Tube Sodium Chloride 10 ml 11/04/21 10:00 12/06/21 10:35 Sodium Chloride 0.9% 10 Ml Flush Syringe IV 10 ml BID YOSSI Administration Sodium Chloride 10 ml 11/04/21 02:03 Sodium Chloride 0.9% 10 Ml Flush Syringe IV PRN PRN LINE FLUSH Sodium Chloride 10 ml 11/10/21 09:57 11/17/21 20:47 Sodium Chloride 0.9% 50 Ml Ivpb IV 10 ml PRN PRN Administration FLUSH Sucralfate 1 gm 11/18/21 16:30 12/06/21 12:01 Sucralfate 1 Gm/10 Ml Oral Liqd PO 1 gm ACHS YOSSI Administration Trazodone HCl 50 mg 12/04/21 22:00 12/04/21 21:31 Trazodone 50 Mg Tab PO 50 mg QHS YOSSI Administration Nutrition/Malnutrition Assess - Dietary Evaluation Nutrition/Malnutrition Findings: Nutrition Notes Start: 11/04/21 17:16 Freq: Status: Active Protocol: Document 12/01/21 18:39 ISABELL (Rec: 12/01/21 19:19 ISABELL [id number]) Nutrition Notes Initial or Follow up Reassessment Current Diagnosis Decubitus(Pressure Ulcer), Diabetes,Hypertension, Respiratory Failure Other Pertinent Diagnosis Bilateral Pneumonia and Pleural Effusion, R- Pneumothorax, CHF-EF, GI Bleed . Current Diet TF-Vital AF 1.2 @ 40 ml/hr ( since 11/30) Labs/Tests 12/01: Na 136, BUN 24, Glu 117 , Ca 7.5, Mg 1.6. Pertinent Medications 12/01: Levothyroxine, others nutritionally unremarkable. Height 5 ft Weight 62.4 kg [place] Body Weight (kg) 45.45 BMI 26.9 Weight change and time frame No body weight change reported . Weight Status Overweight Subjective/Other Information RD consult for routine F/U on TF assessment. Glucerna switched to Vital AF due to out of stock situation. PEG tube placed on 11/26, well tolerated. Pt still on Mechanical Ventilation. Pt has missing teerth, according to Physical Assessment History notes. Case Management note 12/01: Patient officially referred to [facility] for aggressive ventilator weaning. Percent of energy/protein needs met: Prescribed Vital AF 1.2 Tamir @ 40 ml/hr provides for energy/ protein needs (1,150 Kcal/72 g ) during LOS, 95% Kcal; 96% AA . Burn Absent Trauma Absent GI Symptoms Other Difficulty In Swallowing,Chewing Food Allergy No Skin Integrity/Comment Lower Extremities Pressure Ulcer. Current % PO Other Minimum of two criteria No #1 Nutrition Diagnosis Inadequate oral intake Diagnosis Progress(for reassessment Continues documentation) Is patient on ventilator? Yes Is Patient Ambulatory and/or Out of Bed No [facility] 7420.822 Calculation Used [facility]ations [facility] Additional Notes Protein: 1.2-2 g/Kg; 75-125 g/ day. Fluids: 1 ml/Kcal, or as per MD. Nutrition Intervention Nutrition Support: Switch to Vital AF 1.2 Tamir @ 40 ml/hr. Flush: 70 ml water Q 4 hr, or as per MD. Kcal 1,150 Protein (gm) 72 Carbohydrates (gm) 106 Fat (gm) 52 Fluid (mL) 777 Fiber (gm) 5 % RDI: 95% Kcal; 96% AA. Goal #1 Provide at least 75% of energy /protein needs through Enteral Feeding during LOS. Goal #2 Maintain body weight within +/ -3% of admission body weight during LOS. Follow-Up By: 12/08/21 Additional Comments Continue monitoring TF tolerance and BM. <LEAH ALFONSO - Last Filed: 12/10/21 16:11> Assessment and Plan Assessment and plan: I saw and evaluated the patient. I agree with the findings and the plan of care as documented in the Nurse Practitioner's~note, with the following corrections and additions. Hospitalist Physical - Constitutional Vitals: Temp Pulse Resp BP Pulse Ox 98.9 F 65 18 132/49 98 12/10/21 11:43 12/10/21 13:30 12/10/21 13:30 12/10/21 13:30 12/10/21 13:30 HEART Score - HEART Score Troponin: Troponin T 0.045 ng/mL (0.00-0.029) H 11/29/21 20:15 Results - Labs CBC & Chem 7: 12/09/21 04:20 12/10/21 04:33 Labs: Laboratory Last Values WBC 8.5 K/mm3 (4.5-11.0) 12/09/21 04:20 RBC 2.67 M/mm3 (3.65-5.03) L 12/09/21 04:20 Hgb 7.6 gm/dl (10.1-14.3) L 12/09/21 04:20 Hct 22.1 % (30.3-42.9) L 12/09/21 04:20 MCV 83 fl (79-97) 12/09/21 04:20 MCH 28 pg (28-32) 12/09/21 04:20 MCHC 34 % (30-34) 12/09/21 04:20 RDW 20.8 % (13.2-15.2) H 12/09/21 04:20 Plt Count 175 K/mm3 (140-440) 12/09/21 04:20 Add Manual Diff Complete 11/16/21 15:25 Total Counted 100 11/16/21 15:25 Seg Neutrophils % Nurse'S Aides Teacher 01/20/22 15:50 Seg Neuts % (Manual) 87.0 % (40.0-70.0) H 11/16/21 15:25 Band Neutrophils % 0 % 11/16/21 15:25 Lymphocytes % (Manual) 8.0 % (13.4-35.0) L 11/16/21 15:25 Reactive Lymphs % (Man) 0 % 11/16/21 15:25 Monocytes % (Manual) 5.0 % (0.0-7.3) 11/16/21 15:25 Eosinophils % (Manual) 0 % (0.0-4.3) 11/16/21 15:25 Basophils % (Manual) 0 % (0.0-1.8) 11/16/21 15:25 Metamyelocytes % 0 % 11/16/21 15:25 Myelocytes % 0 % 11/16/21 15:25 Promyelocytes % 0 % 11/16/21 15:25 Blast Cells % 0 % 11/16/21 15:25 Nucleated RBC % Not Reportable 11/16/21 15:25 Seg Neutrophils # Man 15.0 K/mm3 (1.8-7.7) H 11/16/21 15:25 Band Neutrophils # 0.0 K/mm3 11/16/21 15:25 Lymphocytes # (Manual) 1.4 K/mm3 (1.2-5.4) 11/16/21 15:25 Abs React Lymphs (Man) 0.0 K/mm3 11/16/21 15:25 Monocytes # (Manual) 0.9 K/mm3 (0.0-0.8) H 11/16/21 15:25 Eosinophils # (Manual) 0.0 K/mm3 (0.0-0.4) 11/16/21 15:25 Basophils # (Manual) 0.0 K/mm3 (0.0-0.1) 11/16/21 15:25 Metamyelocytes # 0.0 K/mm3 11/16/21 15:25 Myelocytes # 0.0 K/mm3 11/16/21 15:25 Promyelocytes # 0.0 K/mm3 11/16/21 15:25 Blast Cells # 0.0 K/mm3 11/16/21 15:25 WBC Morphology Not Reportable 11/16/21 15:25 Hypersegmented Neuts Not Reportable 11/16/21 15:25 Hyposegmented Neuts Not Reportable 11/16/21 15:25 Hypogranular Neuts Not Reportable 11/16/21 15:25 Smudge Cells Not Reportable 11/16/21 15:25 Toxic Granulation Not Reportable 11/16/21 15:25 Toxic Vacuolation Not Reportable 11/16/21 15:25 Dohle Bodies Not Reportable 11/16/21 15:25 Pelger-Huet Anomaly Not Reportable 11/16/21 15:25 Irina Rods Not Reportable 11/16/21 15:25 Platelet Estimate Consistent w auto 11/16/21 15:25 Clumped Platelets Rare 11/16/21 15:25 Plt Clumps, EDTA Not Reportable 11/16/21 15:25 Large Platelets Not Reportable 11/16/21 15:25 Giant Platelets Not Reportable 11/16/21 15:25 Platelet Satelliting Not Reportable 11/16/21 15:25 Plt Morphology Comment Not Reportable 11/16/21 15:25 RBC Morphology Not Reportable 11/16/21 15:25 Dimorphic RBCs Not Reportable 11/16/21 15:25 Polychromasia Not Reportable 11/16/21 15:25 Hypochromasia 2+ 11/16/21 15:25 Poikilocytosis Not Reportable 11/16/21 15:25 Anisocytosis 2+ 11/16/21 15:25 Microcytosis Not Reportable 11/16/21 15:25 Macrocytosis Not Reportable 11/16/21 15:25 Spherocytes Not Reportable 11/16/21 15:25 Pappenheimer Bodies Not Reportable 11/16/21 15:25 Sickle Cells Not Reportable 11/16/21 15:25 Target Cells 2+ 11/16/21 15:25 Tear Drop Cells Not Reportable 11/16/21 15:25 Ovalocytes Not Reportable 11/16/21 15:25 Helmet Cells Not Reportable 11/16/21 15:25 Odonnell-Dovray Bodies Not Reportable 11/16/21 15:25 [place] Rings Not Reportable 11/16/21 15:25 [place] Cells Not Reportable 11/16/21 15:25 Bite Cells Not Reportable 11/16/21 15:25 Crenated Cell Not Reportable 11/16/21 15:25 Elliptocytes Not Reportable 11/16/21 15:25 Acanthocytes (Spur) Not Reportable 11/16/21 15:25 Rouleaux Not Reportable 11/16/21 15:25 Hemoglobin C Crystals Not Reportable 11/16/21 15:25 Schistocytes Not Reportable 11/16/21 15:25 Malaria parasites Not Reportable 11/16/21 15:25 Godfrey Bodies Not Reportable 11/16/21 15:25 Hem Pathologist Commnt No 11/16/21 15:25 PT 16.9 Sec. (12.2-14.9) H 11/26/21 05:00 INR 1.24 (0.87-1.13) H 11/26/21 05:00 APTT 29.2 Sec. (24.2-36.6) 11/26/21 05:00 D-Dimer 2655.00 ng/mlDDU (0-234) H 11/11/21 04:28 ABG pH 7.449 pH Units (7.350-7.450) 11/21/21 16:00 ABG pCO2 32.1 mm Hg 11/21/21 16:00 ABG pO2 114.2 mm Hg (80.0-90.0) H 11/21/21 16:00 ABG HCO3 21.8 mmol/L (20.0-26.0) 11/21/21 16:00 ABG O2 Saturation 98.3 % (95.0-99.0) 11/21/21 16:00 ABG O2 Content 12.5 (0.0-44) 11/21/21 16:00 ABG Base Excess -1.7 mmol/L (-2.0-3.0) 11/21/21 16:00 ABG Hemoglobin 9.1 gm/dl (12.0-16.0) L 11/21/21 16:00 ABG Carboxyhemoglobin 1.9 % (0.0-5.0) 11/21/21 16:00 ABG Methemoglobin 0.5 % (0.0-1.5) 11/21/21 16:00 Oxyhemoglobin 96.0 % (95.0-99.0) 11/21/21 16:00 FiO2 30 % 11/21/21 16:00 Sodium 136 mmol/L (137-145) L 12/10/21 04:33 Potassium 4.0 mmol/L (3.6-5.0) 12/10/21 04:33 Chloride 99.5 mmol/L (98-107) 12/10/21 04:33 Carbon Dioxide 26 mmol/L (22-30) 12/10/21 04:33 Anion Gap 15 mmol/L 12/10/21 04:33 BUN 27 mg/dL (7-17) H 12/10/21 04:33 Creatinine 0.6 mg/dL (0.6-1.2) 12/10/21 04:33 Estimated GFR > 60 ml/min 12/10/21 04:33 BUN/Creatinine Ratio 45 % 12/10/21 04:33 Glucose 117 mg/dL (65-100) H 12/10/21 04:33 POC Glucose 137 mg/dL (70-105) H 12/10/21 16:02 Lactic Acid 3.70 mmol/L (0.7-2.0) H* 11/03/21 22:32 Calcium 8.2 mg/dL (8.4-10.2) L 12/10/21 04:33 Phosphorus 3.50 mg/dL (2.5-4.5) 12/08/21 04:00 Magnesium 2.20 mg/dL (1.7-2.3) 12/08/21 04:00 Ferritin 52.6 ng/mL (10.0-200.0) 11/05/21 06:11 Total Bilirubin 0.50 mg/dL (0.1-1.2) 11/17/21 05:56 Direct Bilirubin < 0.2 mg/dL (0-0.2) 11/11/21 04:28 Indirect Bilirubin 0.1 mg/dL 11/11/21 04:28 AST 36 units/L (5-40) 11/17/21 05:56 ALT 47 units/L (7-56) 11/17/21 05:56 Alkaline Phosphatase 107 units/L (35-129) 11/17/21 05:56 Ammonia 42.0 umol/L (25-60) 11/10/21 14:08 Lactate Dehydrogenase 187 units/L (91-180) H 11/05/21 06:11 Troponin T 0.045 ng/mL (0.00-0.029) H 11/29/21 20:15 C-Reactive Protein 22.20 mg/dL (0.00-1.30) H 11/05/21 06:11 NT-Pro-B Natriuret Pep 7895 pg/mL (0-900) H 11/03/21 22:32 Total Protein 5.1 g/dL (6.3-8.2) L 11/17/21 05:56 Albumin 2.2 g/dL (3.9-5) L 11/17/21 05:56 Albumin/Globulin Ratio 0.8 % 11/17/21 05:56 Triglycerides 59 mg/dL (2-149) 11/29/21 20:15 Cholesterol 74 mg/dL (50-199) 11/29/21 20:15 LDL Cholesterol Direct 25 mg/dL (50-130) L 11/29/21 20:15 HDL Cholesterol 41 mg/dL (40-59) 11/29/21 20:15 Cholesterol/HDL Ratio 1.80 % 11/29/21 20:15 Vitamin B12 1823 pg/mL (211-911) H 11/10/21 14:08 TSH 1.510 mlU/mL (0.270-4.200) 11/10/21 14:08 Urine Color Yellow (Yellow) 11/11/21 09:00 Urine Turbidity Slightly-cloudy (Clear) 11/11/21 09:00 Urine pH 5.0 (5.0-7.0) 11/11/21 09:00 Ur Specific [place] 1.009 (1.003-1.030) 11/11/21 09:00 Urine Protein <15 mg/dl mg/dL (Negative) 11/11/21 09:00 Urine Glucose (UA) Neg mg/dL (Negative) 11/11/21 09:00 Urine Ketones Neg mg/dL (Negative) 11/11/21 09:00 Urine Blood Mod (Negative) 11/11/21 09:00 Urine Nitrite Neg (Negative) 11/11/21 09:00 Urine Bilirubin Neg (Negative) 11/11/21 09:00 Urine Urobilinogen < 2.0 mg/dL (<2.0) 11/11/21 09:00 Ur Leukocyte Esterase Neg (Negative) 11/11/21 09:00 Urine WBC (Auto) < 1.0 /HPF (0.0-6.0) 11/11/21 09:00 Urine RBC (Auto) < 1.0 /HPF (0.0-6.0) 11/11/21 09:00 Coronavirus (PCR) Negative (Negative) 11/10/21 08:30 Blood Type O POSITIVE 11/18/21 10:45 Antibody Screen Negative 11/18/21 10:45 Crossmatch See Detail 11/18/21 10:45 Gamble/IV: Voiding Method Indwelling Catheter Active Medications - Current Medications Current Medications: Generic Name Dose Route Start Last Admin Trade Name Freq PRN Reason Stop Dose Admin Hydrocodone Bitart/Acetaminophen 1 each 11/21/21 10:00 12/10/21 13:29 Hydrocodone/Acetaminophen 10-325mg Tab FEEDTUBE 1 each TID YOSSI Administration Alprazolam 0.5 mg 12/09/21 08:00 12/10/21 08:55 Alprazolam 0.5 Mg Tab PO 0.5 mg Q8H YOSSI Administration Lipase/Protease/Amylase 1 each 11/08/21 11:09 Lipase 10,500/Protease 25,000/Amylase 43,750 (Units) Dr Lema FEEDTUBE PRN PRN For Clogged Feeding Tube Buspirone HCl 7.5 mg 11/17/21 22:00 12/10/21 09:05 Buspirone 5 Mg Tab PO 7.5 mg BID YOSSI Administration Dextrose 0 ml 11/10/21 10:52 11/21/21 16:27 Dextrose 10% *Hypoglycemia IV 50 ml PRN PRN Administration Hypoglycemia Docusate Sodium 100 mg 12/04/21 11:00 12/10/21 09:04 Docusate Sodium 100 Mg/10 Ml Oral Liqd PO 100 mg BID YOSSI Administration Fentanyl 1 applic 11/17/21 13:00 12/08/21 09:54 Fentanyl 25 Mcg/Hr Patch 72hr TD 1 applic Q3D YOSSI Administration Furosemide 20 mg 12/09/21 10:00 12/10/21 09:04 Furosemide 20 Mg Tab PO 20 mg QDAY YOSSI Administration Gabapentin 100 mg 12/01/21 10:00 12/10/21 09:05 Gabapentin 100 Mg Cap PO 100 mg QDAY YOSSI Administration Hydromorphone HCl 0.5 mg 12/08/21 20:06 02/22/22 21:21 Hydromorphone 1 Mg/1 Ml Inj IV 0.5 mg Q3H PRN Administration Pain, Moderate (4-6) Hydrophilic Ointment 1 applic 11/06/21 04:02 Lip Therapy Vaseline TP Q2HR PRN Dry Lips Lansoprazole 30 mg 11/24/21 22:00 12/10/21 09:04 Lansoprazole 30 Mg Solutab FEEDTUBE 30 mg BID YOSSI Administration Levothyroxine Sodium 125 mcg 11/05/21 07:00 12/10/21 06:39 Levothyroxine 125 Mcg Tab PO 125 mcg DAILY@0600 YOSSI Administration Melatonin 5 mg 12/05/21 22:00 12/09/21 21:19 Melatonin 5 Mg Tab PO 5 mg QHS YOSSI Administration Metoprolol Tartrate 6.25 mg 12/08/21 22:52 12/10/21 09:05 Metoprolol Tartrate 25 Mg Tab PO 6.25 mg BID YOSSI Administration Midodrine 10 mg 12/09/21 08:00 12/10/21 12:14 Midodrine 5 Mg Tab PO 10 mg TID@0800,1200,1600 [facility] Administration Multi-Ingred Cream/Lotion/Oil/Oint 1 applic 11/06/21 04:02 Mineral Oil/Petrolatum, White Ophth Oint 3.5 Gm OU Q4HR PRN Dry Eye(s) Nitroglycerin 0.4 mg 11/30/21 11:36 Nitroglycerin 0.4 Mg Tab Subl SL .Q5MIN PRN Chest Pain Ondansetron HCl 4 mg 12/05/21 10:00 12/08/21 05:17 Ondansetron 4 Mg/2 Ml Inj IV 4 mg Q8H PRN Administration Nausea And Vomiting Polyethylene Glycol 17 gm 12/02/21 10:00 12/10/21 09:04 Polyethylene Glycol 3350 17 Gm Powder PO 17 gm QDAY [facility] Administration Pravastatin Sodium 20 mg 11/18/21 22:00 12/09/21 21:18 Pravastatin 20 Mg Tab PO 20 mg QHS YOSSI Administration Quetiapine Fumarate 50 mg 12/01/21 22:00 12/09/21 21:19 Quetiapine 25 Mg Tab PO 50 mg QHS [facility] Administration Senna 17.6 mg 11/08/21 22:00 12/10/21 09:04 Sennosides Oral Liqd 8.8 Mg/5 Ml Oral Liqd PO 17.6 mg Q12HR YOSSI Administration Simple Syrup 15 ml 11/08/21 11:09 Simple Syrup 15 Ml FEEDTUBE PRN PRN Hypoglycemia Simple Syrup 30 ml 11/08/21 11:09 Simple Syrup 15 Ml FEEDTUBE PRN PRN Hypoglycemia Sodium Bicarbonate 325 mg 11/08/21 11:09 Sodium Bicarbonate 325 Mg Tab FEEDTUBE PRN PRN For Clogged Feeding Tube Sodium Chloride 10 ml 11/04/21 10:00 12/10/21 09:06 Sodium Chloride 0.9% 10 Ml Flush Syringe IV 10 ml BID YOSSI Administration Sodium Chloride 10 ml 11/04/21 02:03 Sodium Chloride 0.9% 10 Ml Flush Syringe IV PRN PRN LINE FLUSH Sodium Chloride 10 ml 11/10/21 09:57 11/17/21 20:47 Sodium Chloride 0.9% 50 Ml Ivpb IV 10 ml PRN PRN Administration FLUSH Sucralfate 1 gm 11/18/21 16:30 12/10/21 10:56 Sucralfate 1 Gm/10 Ml Oral Liqd PO 1 gm ACHS YOSSI Administration Trazodone HCl 50 mg 12/04/21 22:00 12/09/21 21:19 Trazodone 50 Mg Tab PO 50 mg QHS YOSSI Administration Nutrition/Malnutrition Assess - Dietary Evaluation Nutrition/Malnutrition Findings: Nutrition Notes Start: 11/04/21 17:16 Freq: Status: Active Protocol: Document 12/08/21 10:17 [facility] (Rec: 12/08/21 10:27 [facility] [id number]) Nutrition Notes Initial or Follow up Reassessment Current Diagnosis Diabetes,Hypertension,Heart Failure,Respiratory Failure Other Pertinent Diagnosis Bilat pneu, acute GIB Current Diet TF - Vital AF 1.2 at 40ml/hr Labs/Tests Na 135 BUN 23 H/H 7.7/23.5 Pertinent Medications Colace, Miralax Height 5 ft Weight 62.4 kg [place] Body Weight (kg) 45.45 BMI 26.9 Weight Status Appropriate Subjective/Other Information Trach and PEG placed on 11/26. Pt remains on vent support. BM x 1 on yesterday; previous report of no BM x 5 days on 2/ 17. Pt tolerating TF. Percent of energy/protein needs met: 95% energy 96% pro Burn Absent Trauma Absent #1 Nutrition Diagnosis Inadequate oral intake Diagnosis Progress(for reassessment Continues documentation) Is patient on ventilator? Yes Is Patient Ambulatory and/or Out of Bed No REE-([facility]-confined to bed) 1207.824 Calculation Used for Recommendations [facility] Additional Notes Pro needs 1.2-2g/k-125g/ day Fluid needs 1ml/kcal Nutrition Intervention Nutrition Support: Continue Vital AF 1.2 at 40ml/ hr. Provide 65ml water flush q4h. Kcal 1,152 Protein (gm) 72 Carbohydrates (gm) 106 Fat (gm) 52 Fluid (mL) 779 Fiber (gm) 5 Goal #1 TF tolerance Goal #2 TF to meet at least 75% energy and pro needs Follow-Up By: 12/15/21 Additional Comments F/U: stable TF, vent status, wt
--- NOTE | 2021-12-06 13:29 | Progress Note ---
Assessment and Plan Severe Sepsis POA vs septic shock- 11/03/2021 blood culture: 2 sets positive for GPC Acute respiratory failure with hypoxia, s/p trach on MVS Acute microcytic anemia Bilateral pneumonia Left pleural effusion Cardiomyopathy EF 30-35% Moderate pulmonary HTN RVSP 49 Acute DVT s/p IVC Anemia Daily SBTs as tolerated. Conservative fluid management as tolerated by hemodynamics and renal function Continue to optimize enteric nutritional support Maintain sleep-wake cycle, PT/OT, increase activity Discharge planning- possible LTACH - continue to titrate supplemental oxygen to keep SPO2 88-90% - VAP bundle addressed, aspiration precautions, HOB >40 - continue bronchodilators with pulmonary hygiene per RT - continue avoid nephrotoxins, renally dose all medications - Accuchecks with glycemic control per SSI (While critically ill target blood glucose of 140-180 mg/dL; avoid hypoglycemia) - continue to avoid benzodiazepines, reduce the possibility of delirium -trend temperature curve, trend WCC, continue to monitor off antibiotics - Maintenance of sleep-wake cycle, avoid delirium -Stress ulcer prophylaxis (Lansoprazole) -VTE prophyalxis- s/p IVC filter. No anticoagulation 11/18 EGD- Large cratered ulcer in the posterior duodenal bulb about 2 cm in diameter.Visible vessel present. Mild active oozing from the ulcer bed. A total of 3 injections were performed around the ulcer for a total of 2.5 cc of dilute epinephrine and hemostasis was obtained. -mobility, off loading and frequent turning to prevent pressure ulcer -continue with enteric nutritional support via PEG, at goal rate - Continue to monitor hemodynamics closely - continue other care per attending / other consultants COVID SPECIFIC INTERVENTIONS - Negative CONDITION: FAIR PROGNOSIS: GUARDED CODE STATUS: FULL CODE The high probability of a clinically significant, sudden or life-threatening deterioration of the [respiratory, cardiovascular and hematologic] system(s) required my full and direct attention, intervention and personal management. The aggregate critical care time was [33] minutes without overlap. Time includes spent on; [x] Data Review and interpretation [x] Patient assessment and monitoring of vital signs [x] Documentation [x] Medication orders and management Subjective Date of service: 12/06/21 Principal diagnosis: Septic shock; AHRF; Anemia; Pneumonia; L. pleural effusion; HFrEF; Pulm HTN Interval history: Follow up fro acute hypoxemic resp failure s/p tracheostomy to MVS ; Septic and cardiogenic shock; severe anemia; Patient seen and examined. Vitals, labs, medications, chart and imaging reviewed. Discussed with respiratory and nursing care staff. Currently on PSV, no fevers overnight, no diarrhea, no vomiting. Episodes of agitation overnight,on low dose norepinephrine Tolerating tube feeding, she is interactive with appropriate responses Objective Vital Signs - 12hr 12/06/21 12/06/21 12/06/21 01:31 01:45 02:00 Temperature Pulse Rate 60 62 60 Pulse Rate [ From Monitor] Respiratory 14 14 14 Rate Blood Pressure 108/43 108/43 118/47 O2 Sat by Pulse 98 99 98 Oximetry O2 Sat by Pulse Oximetry [ Assessment] 12/06/21 12/06/21 12/06/21 02:15 02:31 02:45 Temperature Pulse Rate 60 60 66 Pulse Rate [ From Monitor] Respiratory 13 14 14 Rate Blood Pressure 118/47 118/47 118/47 O2 Sat by Pulse 98 98 100 Oximetry O2 Sat by Pulse Oximetry [ Assessment] 12/06/21 12/06/21 12/06/21 03:00 03:15 03:31 Temperature Pulse Rate 67 60 62 Pulse Rate [ From Monitor] Respiratory 14 14 14 Rate Blood Pressure 129/52 129/52 129/52 O2 Sat by Pulse 98 99 98 Oximetry O2 Sat by Pulse Oximetry [ Assessment] 12/06/21 12/06/21 12/06/21 03:45 04:00 04:15 Temperature 98.0 F Pulse Rate 62 65 70 Pulse Rate [ From Monitor] Respiratory 14 14 13 Rate Blood Pressure 129/52 119/43 113/45 O2 Sat by Pulse 100 99 99 Oximetry O2 Sat by Pulse Oximetry [ Assessment] 12/06/21 12/06/21 12/06/21 04:31 04:45 05:00 Temperature Pulse Rate 63 61 66 Pulse Rate [ From Monitor] Respiratory 14 14 15 Rate Blood Pressure 113/45 113/45 119/43 O2 Sat by Pulse 99 98 98 Oximetry O2 Sat by Pulse Oximetry [ Assessment] 12/06/21 12/06/21 12/06/21 05:15 05:31 05:45 Temperature Pulse Rate 64 70 63 Pulse Rate [ From Monitor] Respiratory 14 14 14 Rate Blood Pressure 119/43 119/43 119/43 O2 Sat by Pulse 99 99 100 Oximetry O2 Sat by Pulse Oximetry [ Assessment] 12/06/21 12/06/21 12/06/21 06:00 06:15 06:31 Temperature Pulse Rate 62 71 65 Pulse Rate [ From Monitor] Respiratory 14 14 14 Rate Blood Pressure 114/60 114/60 114/60 O2 Sat by Pulse 98 98 99 Oximetry O2 Sat by Pulse Oximetry [ Assessment] 12/06/21 12/06/21 12/06/21 06:45 07:00 07:15 Temperature Pulse Rate 62 62 65 Pulse Rate [ From Monitor] Respiratory 14 14 14 Rate Blood Pressure 114/60 109/70 109/70 O2 Sat by Pulse 99 93 98 Oximetry O2 Sat by Pulse Oximetry [ Assessment] 12/06/21 12/06/21 12/06/21 07:31 07:45 07:49 Temperature Pulse Rate 62 76 82 Pulse Rate [ From Monitor] Respiratory 14 14 Rate Blood Pressure 109/70 109/70 109/70 O2 Sat by Pulse 99 97 98 Oximetry O2 Sat by Pulse 98 Oximetry [ Assessment] 12/06/21 12/06/21 12/06/21 08:00 08:01 08:15 Temperature 98.2 F Pulse Rate 63 79 81 Pulse Rate [ 63 From Monitor] Respiratory 14 26 H 26 H Rate Blood Pressure 124/64 124/64 O2 Sat by Pulse 99 95 99 Oximetry O2 Sat by Pulse Oximetry [ Assessment] 12/06/21 12/06/21 12/06/21 08:31 08:45 09:01 Temperature Pulse Rate 102 H 105 H 114 H Pulse Rate [ From Monitor] Respiratory 33 H 27 H 19 Rate Blood Pressure 124/64 124/64 124/64 O2 Sat by Pulse 100 100 89 Oximetry O2 Sat by Pulse Oximetry [ Assessment] 12/06/21 12/06/21 12/06/21 09:15 09:31 09:45 Temperature Pulse Rate 106 H 94 H 88 Pulse Rate [ From Monitor] Respiratory 22 31 H 23 Rate Blood Pressure 139/85 139/85 139/85 O2 Sat by Pulse 90 96 97 Oximetry O2 Sat by Pulse Oximetry [ Assessment] 12/06/21 12/06/21 12/06/21 10:00 10:15 10:31 Temperature Pulse Rate 86 78 82 Pulse Rate [ From Monitor] Respiratory 26 H 22 22 Rate Blood Pressure 135/96 135/96 135/96 O2 Sat by Pulse 95 98 92 Oximetry O2 Sat by Pulse Oximetry [ Assessment] 12/06/21 12/06/2112/06/22 10:33 10:45 11:00 Temperature Pulse Rate 79 83 81 Pulse Rate [ From Monitor] Respiratory 22 25 H Rate Blood Pressure 135/96 135/96 110/39 O2 Sat by Pulse 92 89 Oximetry O2 Sat by Pulse Oximetry [ Assessment] 12/06/21 12/06/21 12/06/21 11:15 11:31 11:45 Temperature Pulse Rate 80 75 76 Pulse Rate [ From Monitor] Respiratory 25 H 16 22 Rate Blood Pressure 110/39 110/39 110/39 O2 Sat by Pulse 92 92 94 Oximetry O2 Sat by Pulse Oximetry [ Assessment] 12/06/21 12/06/21 12/06/21 12:00 12:15 12:31 Temperature Pulse Rate 80 85 86 Pulse Rate [ 87 From Monitor] Respiratory 20 24 24 Rate Blood Pressure 116/45 116/45 116/45 O2 Sat by Pulse 95 93 92 Oximetry O2 Sat by Pulse Oximetry [ Assessment] 12/06/21 12:45 Temperature Pulse Rate 84 Pulse Rate [ From Monitor] Respiratory 25 H Rate Blood Pressure 116/45 O2 Sat by Pulse 95 Oximetry O2 Sat by Pulse Oximetry [ Assessment] Constitutional: no acute distress, alert, other (trach to MVS, frail elderly woman with mildly increased respiratory effort at rest) Eyes: non-icteric ENT: oropharynx moist, oropharyngeal exudate pre (clear frothy), other (+ Midline tracheostomy) Neck: supple, no lymphadenopathy, no JVD Effort: mildly labored Ascultation: Bilateral: diminished breath sounds, rhonchi, other (Right chest tube) Percussion: Bilateral: not dull Cardiovascular: regular rate and rhythm, other (S1,S2) Gastrointestinal: normoactive bowel sounds, soft, non-tender, non-distended (protuberant) Integumentary: normal Extremities: no cyanosis, pink and warm, pulses normal, edema (upper etremities) Neurologic: normal mental status, non-focal exam (grossly), pupils equal and round, motor strength normal and Psychiatric: mood appropriate, affect normal CBC and BMP: 12/06/21 04:25 12/06/21 04:25 ABG, PT/INR, D-dimer: ABG ABG pH 7.449 pH Units (7.350-7.450) 11/21/21 16:00 ABG pCO2 32.1 mm Hg 11/21/21 16:00 ABG pO2 114.2 mm Hg (80.0-90.0) H 11/21/21 16:00 ABG O2 Saturation 98.3 % (95.0-99.0) 11/21/21 16:00 PT/INR, D-dimer PT 16.9 Sec. (12.2-14.9) H 11/26/21 05:00 INR 1.24 (0.87-1.13) H 11/26/21 05:00 D-Dimer 2655.00 ng/mlDDU (0-234) H 11/11/21 04:28 Abnormal lab findings: Abnormal Labs 11/03/21 11/03/21 11/03/21 22:32 22:32 22:32 WBC 29.3 H RBC 2.93 L Hgb 6.1 L Hct 21.9 L MCV 75 L MCH 21 L MCHC 28 L RDW 19.7 H Plt Count Seg Neuts % (Manual) 97.0 H Lymphocytes % (Manual) 3.0 L Seg Neutrophils # Man 28.4 H Lymphocytes # (Manual) 0.9 L Monocytes # (Manual) PT 18.6 H INR 1.40 H D-Dimer ABG pH ABG pO2 ABG HCO3 ABG O2 Saturation ABG Base Excess ABG Hemoglobin Oxyhemoglobin Sodium Potassium Chloride Carbon Dioxide 20 L BUN 33 H Creatinine Glucose 119 H POC Glucose Lactic Acid Calcium 8.3 L Phosphorus Magnesium AST ALT Alkaline Phosphatase Lactate Dehydrogenase Troponin T 0.035 H C-Reactive Protein NT-Pro-B Natriuret Pep Total Protein Albumin LDL Cholesterol Direct 34 L Vitamin B12 Crossmatch 11/03/21 11/03/21 11/03/21 22:32 22:32 23:57 WBC RBC Hgb Hct MCV MCH MCHC RDW Plt Count Seg Neuts % (Manual) Lymphocytes % (Manual) Seg Neutrophils # Man Lymphocytes # (Manual) Monocytes # (Manual) PT INR D-Dimer ABG pH ABG pO2 ABG HCO3 ABG O2 Saturation ABG Base Excess ABG Hemoglobin Oxyhemoglobin Sodium Potassium Chloride Carbon Dioxide BUN Creatinine Glucose POC Glucose Lactic Acid 3.70 H* Calcium Phosphorus Magnesium AST ALT Alkaline Phosphatase 139 H Lactate Dehydrogenase Troponin T C-Reactive Protein NT-Pro-B Natriuret Pep 7895 H Total Protein Albumin 3.5 L LDL Cholesterol Direct Vitamin B12 Crossmatch See Detail 11/04/21 11/04/21 11/05/21 00:59 13:58 00:51 WBC 27.9 H RBC 3.28 L Hgb 7.3 L Hct 25.5 L MCV 78 L MCH 22 L MCHC 29 L RDW 19.1 H Plt Count Seg Neuts % (Manual) 96.0 H Lymphocytes % (Manual) 2.0 L Seg Neutrophils # Man 26.8 H Lymphocytes # (Manual) 0.6 L Monocytes # (Manual) PT INR D-Dimer ABG pH ABG pO2 ABG HCO3 ABG O2 Saturation ABG Base Excess ABG Hemoglobin Oxyhemoglobin Sodium Potassium Chloride Carbon Dioxide BUN Creatinine Glucose POC Glucose Lactic Acid Calcium Phosphorus Magnesium AST ALT Alkaline Phosphatase Lactate Dehydrogenase Troponin T 0.051 H D 0.032 H D C-Reactive Protein NT-Pro-B Natriuret Pep Total Protein Albumin LDL Cholesterol Direct Vitamin B12 Crossmatch 11/05/21 11/05/21 11/05/21 06:11 06:11 06:11 WBC 31.8 H RBC 3.57 L Hgb 8.0 L Hct 27.7 L MCV 78 L MCH 22 L MCHC 29 L RDW 19.2 H Plt Count Seg Neuts % (Manual) 91.0 H Lymphocytes % (Manual) 4.5 L Seg Neutrophils # Man 28.9 H Lymphocytes # (Manual) Monocytes # (Manual) 1.1 H PT INR D-Dimer 1494.53 H ABG pH ABG pO2 ABG HCO3 ABG O2 Saturation ABG Base Excess ABG Hemoglobin Oxyhemoglobin Sodium Potassium Chloride Carbon Dioxide 19 L BUN 42 H Creatinine Glucose 115 H POC Glucose Lactic Acid Calcium Phosphorus Magnesium AST 43 H ALT Alkaline Phosphatase Lactate Dehydrogenase 187 H Troponin T C-Reactive Protein 22.20 H NT-Pro-B Natriuret Pep Total Protein 6.0 L Albumin 3.2 L LDL Cholesterol Direct Vitamin B12 Crossmatch 11/05/21 11/05/21 11/06/21 06:11 12:15 00:30 WBC RBC Hgb Hct MCV MCH MCHC RDW Plt Count Seg Neuts % (Manual) Lymphocytes % (Manual) Seg Neutrophils # Man Lymphocytes # (Manual) Monocytes # (Manual) PT INR D-Dimer ABG pH ABG pO2 ABG HCO3 ABG O2 Saturation ABG Base Excess ABG Hemoglobin Oxyhemoglobin Sodium Potassium Chloride Carbon Dioxide BUN Creatinine Glucose POC Glucose 113 H 69 L Lactic Acid Calcium Phosphorus Magnesium AST ALT Alkaline Phosphatase Lactate Dehydrogenase Troponin T 0.033 H C-Reactive Protein NT-Pro-B Natriuret Pep Total Protein Albumin LDL Cholesterol Direct Vitamin B12 Crossmatch 11/06/21 11/06/21 11/06/21 05:50 15:50 15:50 WBC 25.5 H RBC 3.62 L Hgb 8.0 L Hct 27.5 L MCV 76 L MCH 22 L MCHC 29 L RDW 19.6 H Plt Count Seg Neuts % (Manual) 92.0 H Lymphocytes % (Manual) 5.0 L Seg Neutrophils # Man 23.5 H Lymphocytes # (Manual) Monocytes # (Manual) PT INR D-Dimer ABG pH 7.305 L ABG pO2 ABG HCO3 15.8 L ABG O2 Saturation ABG Base Excess -9.6 L ABG Hemoglobin 8.6 L Oxyhemoglobin 94.6 L Sodium Potassium Chloride 113.9 H Carbon Dioxide 17 L BUN 56 H Creatinine Glucose 114 H POC Glucose Lactic Acid Calcium 7.9 L Phosphorus Magnesium AST 1410 H ALT 934 H Alkaline Phosphatase 142 H Lactate Dehydrogenase Troponin T C-Reactive Protein NT-Pro-B Natriuret Pep Total Protein 5.0 L Albumin 2.6 L LDL Cholesterol Direct Vitamin B12 Crossmatch 11/07/21 11/07/21 11/07/21 03:30 04:50 08:07 WBC RBC Hgb Hct MCV MCH MCHC RDW Plt Count Seg Neuts % (Manual) Lymphocytes % (Manual) Seg Neutrophils # Man Lymphocytes # (Manual) Monocytes # (Manual) PT INR D-Dimer ABG pH ABG pO2 296.9 H ABG HCO3 18.1 L ABG O2 Saturation 99.5 H ABG Base Excess -5.9 L ABG Hemoglobin 7.6 L Oxyhemoglobin Sodium Potassium Chloride Carbon Dioxide BUN Creatinine Glucose POC Glucose 106 H 108 H Lactic Acid Calcium Phosphorus Magnesium AST ALT Alkaline Phosphatase Lactate Dehydrogenase Troponin T C-Reactive Protein NT-Pro-B Natriuret Pep Total Protein Albumin LDL Cholesterol Direct Vitamin B12 Crossmatch 11/08/21 11/08/21 11/08/21 03:10 18:05 23:43 WBC RBC Hgb Hct MCV MCH MCHC RDW Plt Count Seg Neuts % (Manual) Lymphocytes % (Manual) Seg Neutrophils # Man Lymphocytes # (Manual) Monocytes # (Manual) PT INR D-Dimer ABG pH ABG pO2 127.4 H ABG HCO3 ABG O2 Saturation ABG Base Excess -3.4 L ABG Hemoglobin 7.4 L Oxyhemoglobin Sodium Potassium Chloride Carbon Dioxide BUN Creatinine Glucose POC Glucose 113 H 141 H Lactic Acid Calcium Phosphorus Magnesium AST ALT Alkaline Phosphatase Lactate Dehydrogenase Troponin T C-Reactive Protein NT-Pro-B Natriuret Pep Total Protein Albumin LDL Cholesterol Direct Vitamin B12 Crossmatch 11/08/21 11/08/21 11/09/21 Unknown Unknown 02:00 WBC 14.5 H RBC 3.35 L Hgb 7.5 L 8.1 L Hct 25.4 L 27.6 L MCV 76 L 76 L MCH 23 L 22 L MCHC RDW 19.9 H 19.9 H Plt Count Seg Neuts % (Manual) Lymphocytes % (Manual) Seg Neutrophils # Man Lymphocytes # (Manual) Monocytes # (Manual) PT INR D-Dimer ABG pH ABG pO2 ABG HCO3 ABG O2 Saturation ABG Base Excess ABG Hemoglobin Oxyhemoglobin Sodium 154 H D Potassium 3.3 L Chloride 120.7 H Carbon Dioxide 20 L BUN 38 H Creatinine Glucose POC Glucose Lactic Acid Calcium 8.3 L Phosphorus Magnesium AST ALT Alkaline Phosphatase Lactate Dehydrogenase Troponin T C-Reactive Protein NT-Pro-B Natriuret Pep Total Protein Albumin LDL Cholesterol Direct Vitamin B12 Crossmatch 11/09/21 11/09/21 11/09/21 02:00 02:31 05:12 WBC RBC Hgb Hct MCV MCH MCHC RDW Plt Count Seg Neuts % (Manual) Lymphocytes % (Manual) Seg Neutrophils # Man Lymphocytes # (Manual) Monocytes # (Manual) PT INR D-Dimer ABG pH 7.479 H ABG pO2 121.3 H ABG HCO3 ABG O2 Saturation ABG Base Excess ABG Hemoglobin 7.3 L Oxyhemoglobin Sodium Potassium Chloride 112.5 H Carbon Dioxide BUN 33 H Creatinine Glucose 161 H POC Glucose 135 H Lactic Acid Calcium Phosphorus Magnesium AST 251 H ALT 481 H Alkaline Phosphatase Lactate Dehydrogenase Troponin T C-Reactive Protein NT-Pro-B Natriuret Pep Total Protein 5.0 L Albumin 2.8 L LDL Cholesterol Direct Vitamin B12 Crossmatch 11/09/21 11/09/21 11/09/21 11:33 16:32 23:28 WBC RBC Hgb Hct MCV MCH MCHC RDW Plt Count Seg Neuts % (Manual) Lymphocytes % (Manual) Seg Neutrophils # Man Lymphocytes # (Manual) Monocytes # (Manual) PT INR D-Dimer ABG pH ABG pO2 ABG HCO3 ABG O2 Saturation ABG Base Excess ABG Hemoglobin Oxyhemoglobin Sodium Potassium Chloride Carbon Dioxide BUN Creatinine Glucose POC Glucose 132 H 133 H 143 H Lactic Acid Calcium Phosphorus Magnesium AST ALT Alkaline Phosphatase Lactate Dehydrogenase Troponin T C-Reactive Protein NT-Pro-B Natriuret Pep Total Protein Albumin LDL Cholesterol Direct Vitamin B12 Crossmatch 11/10/21 11/10/21 11/10/21 04:00 04:00 05:35 WBC 16.0 H RBC 3.61 L Hgb 8.0 L Hct 27.1 L MCV 75 L MCH 22 L MCHC RDW 20.4 H Plt Count Seg Neuts % (Manual) Lymphocytes % (Manual) Seg Neutrophils # Man Lymphocytes # (Manual) Monocytes # (Manual) PT INR D-Dimer ABG pH ABG pO2 ABG HCO3 ABG O2 Saturation ABG Base Excess ABG Hemoglobin Oxyhemoglobin Sodium 149 H Potassium Chloride 114.1 H Carbon Dioxide BUN 31 H Creatinine Glucose 148 H POC Glucose 132 H Lactic Acid Calcium 8.2 L Phosphorus Magnesium AST ALT Alkaline Phosphatase Lactate Dehydrogenase Troponin T C-Reactive Protein NT-Pro-B Natriuret Pep Total Protein Albumin LDL Cholesterol Direct Vitamin B12 Crossmatch 11/10/21 11/10/21 11/10/21 11:31 14:08 15:35 WBC RBC Hgb Hct MCV MCH MCHC RDW Plt Count Seg Neuts % (Manual) Lymphocytes % (Manual) Seg Neutrophils # Man Lymphocytes # (Manual) Monocytes # (Manual) PT INR D-Dimer ABG pH ABG pO2 126.6 H ABG HCO3 ABG O2 Saturation ABG Base Excess ABG Hemoglobin 7.4 L Oxyhemoglobin Sodium Potassium Chloride Carbon Dioxide BUN Creatinine Glucose POC Glucose 147 H Lactic Acid Calcium Phosphorus Magnesium AST ALT Alkaline Phosphatase Lactate Dehydrogenase Troponin T C-Reactive Protein NT-Pro-B Natriuret Pep Total Protein Albumin LDL Cholesterol Direct Vitamin B12 1823 H Crossmatch 11/10/21 11/11/21 11/11/21 17:53 00:55 04:28 WBC RBC Hgb Hct MCV MCH MCHC RDW Plt Count Seg Neuts % (Manual) Lymphocytes % (Manual) Seg Neutrophils # Man Lymphocytes # (Manual) Monocytes # (Manual) PT INR D-Dimer ABG pH ABG pO2 ABG HCO3 ABG O2 Saturation ABG Base Excess ABG Hemoglobin Oxyhemoglobin Sodium 149 H Potassium Chloride 112.2 H Carbon Dioxide BUN 34 H Creatinine Glucose 148 H POC Glucose 140 H 145 H Lactic Acid Calcium 7.9 L Phosphorus Magnesium AST 53 H ALT 203 H Alkaline Phosphatase Lactate Dehydrogenase Troponin T C-Reactive Protein NT-Pro-B Natriuret Pep Total Protein 4.9 L Albumin 2.6 L LDL Cholesterol Direct Vitamin B12 Crossmatch 11/11/21 11/11/21 11/11/21 04:28 04:28 05:28 WBC 20.9 H RBC 3.47 L Hgb 7.5 L Hct 26.0 L MCV 75 L MCH 22 L MCHC 29 L RDW 21.6 H Plt Count 132 L Seg Neuts % (Manual) Lymphocytes % (Manual) Seg Neutrophils # Man Lymphocytes # (Manual) Monocytes # (Manual) PT INR D-Dimer 2655.00 H ABG pH ABG pO2 ABG HCO3 ABG O2 Saturation ABG Base Excess ABG Hemoglobin Oxyhemoglobin Sodium Potassium Chloride Carbon Dioxide BUN Creatinine Glucose POC Glucose 154 H Lactic Acid Calcium Phosphorus Magnesium AST ALT Alkaline Phosphatase Lactate Dehydrogenase Troponin T C-Reactive Protein NT-Pro-B Natriuret Pep Total Protein Albumin LDL Cholesterol Direct Vitamin B12 Crossmatch 11/11/21 11/11/21 11/12/21 12:38 18:13 00:14 WBC RBC Hgb Hct MCV MCH MCHC RDW Plt Count Seg Neuts % (Manual) Lymphocytes % (Manual) Seg Neutrophils # Man Lymphocytes # (Manual) Monocytes # (Manual) PT INR D-Dimer ABG pH ABG pO2 ABG HCO3 ABG O2 Saturation ABG Base Excess ABG Hemoglobin Oxyhemoglobin Sodium Potassium Chloride Carbon Dioxide BUN Creatinine Glucose POC Glucose 137 H 108 H 137 H Lactic Acid Calcium Phosphorus Magnesium AST ALT Alkaline Phosphatase Lactate Dehydrogenase Troponin T C-Reactive Protein NT-Pro-B Natriuret Pep Total Protein Albumin LDL Cholesterol Direct Vitamin B12 Crossmatch 11/12/21 11/12/21 11/12/21 05:40 06:24 11:12 WBC RBC Hgb Hct MCV MCH MCHC RDW Plt Count Seg Neuts % (Manual) Lymphocytes % (Manual) Seg Neutrophils # Man Lymphocytes # (Manual) Monocytes # (Manual) PT INR D-Dimer ABG pH 7.586 H ABG pO2 150.6 H ABG HCO3 27.2 H ABG O2 Saturation 99.1 H ABG Base Excess 5.2 H ABG Hemoglobin 7.5 L Oxyhemoglobin Sodium Potassium Chloride Carbon Dioxide BUN Creatinine Glucose POC Glucose 132 H 140 H Lactic Acid Calcium Phosphorus Magnesium AST ALT Alkaline Phosphatase Lactate Dehydrogenase Troponin T C-Reactive Protein NT-Pro-B Natriuret Pep Total Protein Albumin LDL Cholesterol Direct Vitamin B12 Crossmatch 11/12/21 11/12/21 11/12/21 14:50 14:50 17:13 WBC 19.8 H RBC 3.27 L Hgb 7.1 L Hct 24.5 L MCV 75 L MCH 22 L MCHC 29 L RDW 22.3 H Plt Count Seg Neuts % (Manual) Lymphocytes % (Manual) Seg Neutrophils # Man Lymphocytes # (Manual) Monocytes # (Manual) PT INR D-Dimer ABG pH ABG pO2 ABG HCO3 ABG O2 Saturation ABG Base Excess ABG Hemoglobin Oxyhemoglobin Sodium 150 H Potassium 3.3 L Chloride 112.0 H Carbon Dioxide BUN 40 H Creatinine Glucose 151 H POC Glucose 121 H Lactic Acid Calcium 7.4 L Phosphorus 1.70 L Magnesium 1.40 L AST ALT Alkaline Phosphatase Lactate Dehydrogenase Troponin T C-Reactive Protein NT-Pro-B Natriuret Pep Total Protein Albumin LDL Cholesterol Direct Vitamin B12 Crossmatch 11/12/21 11/13/21 11/13/21 23:19 05:34 06:30 WBC RBC Hgb Hct MCV MCH MCHC RDW Plt Count Seg Neuts % (Manual) Lymphocytes % (Manual) Seg Neutrophils # Man Lymphocytes # (Manual) Monocytes # (Manual) PT INR D-Dimer ABG pH ABG pO2 ABG HCO3 ABG O2 Saturation ABG Base Excess ABG Hemoglobin Oxyhemoglobin Sodium 149 H Potassium Chloride 60.0 L Carbon Dioxide BUN 40 H Creatinine Glucose 146 H POC Glucose 113 H 132 H Lactic Acid Calcium 7.3 L Phosphorus Magnesium 2.40 H AST ALT 72 H Alkaline Phosphatase Lactate Dehydrogenase Troponin T C-Reactive Protein NT-Pro-B Natriuret Pep Total Protein 5.2 L Albumin 2.2 L LDL Cholesterol Direct Vitamin B12 Crossmatch 11/13/21 11/13/21 11/13/21 06:30 08:30 11:19 WBC 21.2 H RBC 3.12 L Hgb 6.8 L Hct 23.2 L MCV 74 L MCH 22 L MCHC 29 L RDW 22.2 H Plt Count 135 L Seg Neuts % (Manual) Lymphocytes % (Manual) Seg Neutrophils # Man Lymphocytes # (Manual) Monocytes # (Manual) PT INR D-Dimer ABG pH ABG pO2 ABG HCO3 ABG O2 Saturation ABG Base Excess ABG Hemoglobin Oxyhemoglobin Sodium Potassium Chloride Carbon Dioxide BUN Creatinine Glucose POC Glucose 136 H Lactic Acid Calcium Phosphorus Magnesium AST ALT Alkaline Phosphatase Lactate Dehydrogenase Troponin T C-Reactive Protein NT-Pro-B Natriuret Pep Total Protein Albumin LDL Cholesterol Direct Vitamin B12 Crossmatch See Detail 11/13/21 11/14/21 11/14/21 18:21 00:01 04:46 WBC 20.0 H RBC 3.41 L Hgb 7.9 L Hct 26.8 L MCV MCH 23 L MCHC 29 L RDW 24.0 H Plt Count Seg Neuts % (Manual) Lymphocytes % (Manual) Seg Neutrophils # Man Lymphocytes # (Manual) Monocytes # (Manual) PT INR D-Dimer ABG pH ABG pO2 ABG HCO3 ABG O2 Saturation ABG Base Excess ABG Hemoglobin Oxyhemoglobin Sodium Potassium Chloride Carbon Dioxide BUN Creatinine Glucose POC Glucose 149 H 141 H Lactic Acid Calcium Phosphorus Magnesium AST ALT Alkaline Phosphatase Lactate Dehydrogenase Troponin T C-Reactive Protein NT-Pro-B Natriuret Pep Total Protein Albumin LDL Cholesterol Direct Vitamin B12 Crossmatch 11/14/21 11/14/21 11/14/21 04:46 05:10 11:10 WBC RBC Hgb Hct MCV MCH MCHC RDW Plt Count Seg Neuts % (Manual) Lymphocytes % (Manual) Seg Neutrophils # Man Lymphocytes # (Manual) Monocytes # (Manual) PT INR D-Dimer ABG pH ABG pO2 ABG HCO3 ABG O2 Saturation ABG Base Excess ABG Hemoglobin Oxyhemoglobin Sodium 148 H Potassium Chloride 113.1 H Carbon Dioxide BUN 43 H Creatinine Glucose 140 H POC Glucose 132 H 133 H Lactic Acid Calcium 7.5 L Phosphorus Magnesium AST ALT Alkaline Phosphatase Lactate Dehydrogenase Troponin T C-Reactive Protein NT-Pro-B Natriuret Pep Total Protein Albumin LDL Cholesterol Direct Vitamin B12 Crossmatch 11/14/21 11/14/21 11/14/21 16:14 17:48 23:23 WBC RBC Hgb Hct MCV MCH MCHC RDW Plt Count Seg Neuts % (Manual) Lymphocytes % (Manual) Seg Neutrophils # Man Lymphocytes # (Manual) Monocytes # (Manual) PT INR D-Dimer ABG pH ABG pO2 ABG HCO3 28.0 H ABG O2 Saturation ABG Base Excess 3.1 H ABG Hemoglobin 5.8 L Oxyhemoglobin 94.8 L Sodium Potassium Chloride Carbon Dioxide BUN Creatinine Glucose POC Glucose 130 H 136 H Lactic Acid Calcium Phosphorus Magnesium AST ALT Alkaline Phosphatase Lactate Dehydrogenase Troponin T C-Reactive Protein NT-Pro-B Natriuret Pep Total Protein Albumin LDL Cholesterol Direct Vitamin B12 Crossmatch 11/15/21 11/15/21 11/15/21 05:20 05:50 05:50 WBC 19.9 H RBC 3.50 L Hgb 8.2 L Hct 27.9 L MCV MCH 23 L MCHC 29 L RDW 24.9 H Plt Count Seg Neuts % (Manual) Lymphocytes % (Manual) Seg Neutrophils # Man Lymphocytes # (Manual) Monocytes # (Manual) PT INR D-Dimer ABG pH ABG pO2 ABG HCO3 ABG O2 Saturation ABG Base Excess ABG Hemoglobin Oxyhemoglobin Sodium 149 H Potassium Chloride 112.0 H Carbon Dioxide BUN 48 H Creatinine Glucose 152 H POC Glucose 137 H Lactic Acid Calcium 7.9 L Phosphorus Magnesium AST ALT Alkaline Phosphatase Lactate Dehydrogenase Troponin T C-Reactive Protein NT-Pro-B Natriuret Pep Total Protein Albumin LDL Cholesterol Direct Vitamin B12 Crossmatch 11/15/21 11/15/21 11/15/21 12:12 17:07 23:24 WBC RBC Hgb Hct MCV MCH MCHC RDW Plt Count Seg Neuts % (Manual) Lymphocytes % (Manual) Seg Neutrophils # Man Lymphocytes # (Manual) Monocytes # (Manual) PT INR D-Dimer ABG pH ABG pO2 ABG HCO3 ABG O2 Saturation ABG Base Excess ABG Hemoglobin Oxyhemoglobin Sodium Potassium Chloride Carbon Dioxide BUN Creatinine Glucose POC Glucose 114 H 135 H 123 H Lactic Acid Calcium Phosphorus Magnesium AST ALT Alkaline Phosphatase Lactate Dehydrogenase Troponin T C-Reactive Protein NT-Pro-B Natriuret Pep Total Protein Albumin LDL Cholesterol Direct Vitamin B12 Crossmatch 11/16/21 11/16/21 11/16/21 05:21 10:00 10:00 WBC 21.7 H RBC 2.57 L Hgb 6.0 L Hct 20.2 L D MCV MCH 24 L MCHC RDW 26.3 H Plt Count Seg Neuts % (Manual) Lymphocytes % (Manual) Seg Neutrophils # Man Lymphocytes # (Manual) Monocytes # (Manual) PT INR D-Dimer ABG pH ABG pO2 ABG HCO3 ABG O2 Saturation ABG Base Excess ABG Hemoglobin Oxyhemoglobin Sodium 153 H Potassium Chloride 114.9 H Carbon Dioxide BUN 74 H Creatinine Glucose 155 H POC Glucose 127 H Lactic Acid Calcium 8.1 L Phosphorus Magnesium AST ALT Alkaline Phosphatase Lactate Dehydrogenase Troponin T C-Reactive Protein NT-Pro-B Natriuret Pep Total Protein Albumin LDL Cholesterol Direct Vitamin B12 Crossmatch 11/16/21 11/16/21 11/16/21 11:34 14:00 15:25 WBC 17.2 H RBC 2.08 L Hgb 4.7 L* Hct 16.2 L* MCV 78 L MCH 23 L MCHC 29 L RDW 26.0 H Plt Count Seg Neuts % (Manual) 87.0 H Lymphocytes % (Manual) 8.0 L Seg Neutrophils # Man 15.0 H Lymphocytes # (Manual) Monocytes # (Manual) 0.9 H PT INR D-Dimer ABG pH ABG pO2 ABG HCO3 ABG O2 Saturation ABG Base Excess ABG Hemoglobin Oxyhemoglobin Sodium Potassium Chloride Carbon Dioxide BUN Creatinine Glucose POC Glucose 131 H Lactic Acid Calcium Phosphorus Magnesium AST ALT Alkaline Phosphatase Lactate Dehydrogenase Troponin T C-Reactive Protein NT-Pro-B Natriuret Pep Total Protein Albumin LDL Cholesterol Direct Vitamin B12 Crossmatch See Detail 11/16/21 11/16/21 11/16/21 15:25 17:21 22:43 WBC RBC Hgb 8.6 L D Hct 27.7 L D MCV MCH MCHC RDW Plt Count Seg Neuts % (Manual) Lymphocytes % (Manual) Seg Neutrophils # Man Lymphocytes # (Manual) Monocytes # (Manual) PT INR D-Dimer ABG pH ABG pO2 ABG HCO3 ABG O2 Saturation ABG Base Excess ABG Hemoglobin Oxyhemoglobin Sodium 148 H Potassium Chloride 113.2 H Carbon Dioxide BUN 84 H Creatinine Glucose 164 H POC Glucose 124 H Lactic Acid Calcium 7.6 L Phosphorus Magnesium AST ALT Alkaline Phosphatase Lactate Dehydrogenase Troponin T C-Reactive Protein NT-Pro-B Natriuret Pep Total Protein Albumin LDL Cholesterol Direct Vitamin B12 Crossmatch 11/16/21 11/17/21 11/17/21 23:07 05:33 05:56 WBC 25.1 H RBC 3.47 L Hgb 8.7 L Hct 28.5 L MCV MCH 25 L MCHC RDW 22.3 H Plt Count Seg Neuts % (Manual) Lymphocytes % (Manual) Seg Neutrophils # Man Lymphocytes # (Manual) Monocytes # (Manual) PT INR D-Dimer ABG pH ABG pO2 ABG HCO3 ABG O2 Saturation ABG Base Excess ABG Hemoglobin Oxyhemoglobin Sodium Potassium Chloride Carbon Dioxide BUN Creatinine Glucose POC Glucose 128 H 133 H Lactic Acid Calcium Phosphorus Magnesium AST ALT Alkaline Phosphatase Lactate Dehydrogenase Troponin T C-Reactive Protein NT-Pro-B Natriuret Pep Total Protein Albumin LDL Cholesterol Direct Vitamin B12 Crossmatch 11/17/21 11/17/21 11/17/21 05:56 11:00 11:55 WBC RBC Hgb 8.3 L Hct 26.9 L MCV MCH MCHC RDW Plt Count Seg Neuts % (Manual) Lymphocytes % (Manual) Seg Neutrophils # Man Lymphocytes # (Manual) Monocytes # (Manual) PT INR D-Dimer ABG pH ABG pO2 ABG HCO3 ABG O2 Saturation ABG Base Excess ABG Hemoglobin Oxyhemoglobin Sodium 151 H Potassium Chloride 113.6 H Carbon Dioxide BUN 85 H Creatinine Glucose 132 H POC Glucose 121 H Lactic Acid Calcium 7.8 L Phosphorus Magnesium AST ALT Alkaline Phosphatase Lactate Dehydrogenase Troponin T C-Reactive Protein NT-Pro-B Natriuret Pep Total Protein 5.1 L Albumin 2.2 L LDL Cholesterol Direct Vitamin B12 Crossmatch 11/17/21 11/17/21 11/18/21 18:04 18:55 00:26 WBC RBC Hgb 7.5 L 7.1 L Hct 24.8 L 23.6 L MCV MCH MCHC RDW Plt Count Seg Neuts % (Manual) Lymphocytes % (Manual) Seg Neutrophils # Man Lymphocytes # (Manual) Monocytes # (Manual) PT INR D-Dimer ABG pH ABG pO2 ABG HCO3 ABG O2 Saturation ABG Base Excess ABG Hemoglobin Oxyhemoglobin Sodium Potassium Chloride Carbon Dioxide BUN Creatinine Glucose POC Glucose 144 H Lactic Acid Calcium Phosphorus Magnesium AST ALT Alkaline Phosphatase Lactate Dehydrogenase Troponin T C-Reactive Protein NT-Pro-B Natriuret Pep Total Protein Albumin LDL Cholesterol Direct Vitamin B12 Crossmatch 11/18/21 11/18/21 11/18/21 00:43 05:10 05:10 WBC 12.5 H RBC 2.39 L Hgb 6.1 L Hct 20.2 L MCV MCH 25 L MCHC RDW 23.2 H Plt Count Seg Neuts % (Manual) Lymphocytes % (Manual) Seg Neutrophils # Man Lymphocytes # (Manual) Monocytes # (Manual) PT INR D-Dimer ABG pH ABG pO2 ABG HCO3 ABG O2 Saturation ABG Base Excess ABG Hemoglobin Oxyhemoglobin Sodium 131 L D Potassium 2.9 L* D Chloride 97.8 L Carbon Dioxide BUN 58 H Creatinine Glucose 665 H* POC Glucose 139 H Lactic Acid Calcium 7.0 L Phosphorus 2.20 L D Magnesium 1.50 L AST ALT Alkaline Phosphatase Lactate Dehydrogenase Troponin T C-Reactive Protein NT-Pro-B Natriuret Pep Total Protein Albumin LDL Cholesterol Direct Vitamin B12 Crossmatch 11/18/21 11/18/21 11/18/21 05:23 07:10 10:45 WBC RBC Hgb Hct MCV MCH MCHC RDW Plt Count Seg Neuts % (Manual) Lymphocytes % (Manual) Seg Neutrophils # Man Lymphocytes # (Manual) Monocytes # (Manual) PT INR D-Dimer ABG pH ABG pO2 ABG HCO3 ABG O2 Saturation ABG Base Excess ABG Hemoglobin Oxyhemoglobin Sodium 148 H D Potassium 3.1 L Chloride 111.9 H Carbon Dioxide BUN 63 H Creatinine Glucose 141 H POC Glucose 124 H Lactic Acid Calcium 8.1 L D Phosphorus Magnesium AST ALT Alkaline Phosphatase Lactate Dehydrogenase Troponin T C-Reactive Protein NT-Pro-B Natriuret Pep Total Protein Albumin LDL Cholesterol Direct Vitamin B12 Crossmatch See Detail 11/18/21 11/19/21 11/19/21 11:57 00:19 04:55 WBC RBC 3.35 L Hgb 9.0 L 8.9 L Hct 28.3 L D 28.1 L MCV MCH 27 L MCHC RDW 20.3 H Plt Count Seg Neuts % (Manual) Lymphocytes % (Manual) Seg Neutrophils # Man Lymphocytes # (Manual) Monocytes # (Manual) PT INR D-Dimer ABG pH ABG pO2 ABG HCO3 ABG O2 Saturation ABG Base Excess ABG Hemoglobin Oxyhemoglobin Sodium Potassium Chloride Carbon Dioxide BUN Creatinine Glucose POC Glucose 119 H Lactic Acid Calcium Phosphorus Magnesium AST ALT Alkaline Phosphatase Lactate Dehydrogenase Troponin T C-Reactive Protein NT-Pro-B Natriuret Pep Total Protein Albumin LDL Cholesterol Direct Vitamin B12 Crossmatch 11/19/21 11/19/21 11/20/21 04:55 05:42 00:55 WBC RBC Hgb 9.0 L Hct 28.6 L MCV MCH MCHC RDW Plt Count Seg Neuts % (Manual) Lymphocytes % (Manual) Seg Neutrophils # Man Lymphocytes # (Manual) Monocytes # (Manual) PT INR D-Dimer ABG pH ABG pO2 ABG HCO3 ABG O2 Saturation ABG Base Excess ABG Hemoglobin Oxyhemoglobin Sodium Potassium 3.5 L Chloride 108.6 H Carbon Dioxide BUN 47 H Creatinine Glucose 207 H POC Glucose 63 L Lactic Acid Calcium 7.1 L Phosphorus Magnesium AST ALT Alkaline Phosphatase Lactate Dehydrogenase Troponin T C-Reactive Protein NT-Pro-B Natriuret Pep Total Protein Albumin LDL Cholesterol Direct Vitamin B12 Crossmatch 11/20/21 11/20/21 11/20/21 05:40 05:40 Unknown WBC RBC 3.40 L Hgb 9.1 L Hct 28.8 L MCV MCH 27 L MCHC RDW 20.7 H Plt Count Seg Neuts % (Manual) Lymphocytes % (Manual) Seg Neutrophils # Man Lymphocytes # (Manual) Monocytes # (Manual) PT INR D-Dimer ABG pH ABG pO2 ABG HCO3 ABG O2 Saturation ABG Base Excess -2.7 L ABG Hemoglobin 9.5 L Oxyhemoglobin 94.3 L Sodium Potassium 3.5 L Chloride 108.9 H Carbon Dioxide BUN 37 H Creatinine Glucose 117 H POC Glucose Lactic Acid Calcium 7.5 L Phosphorus Magnesium AST ALT Alkaline Phosphatase Lactate Dehydrogenase Troponin T C-Reactive Protein NT-Pro-B Natriuret Pep Total Protein Albumin LDL Cholesterol Direct Vitamin B12 Crossmatch 11/21/21 11/21/21 11/21/21 04:30 04:30 16:00 WBC RBC 3.25 L Hgb 8.6 L Hct 28.1 L MCV MCH 26 L MCHC RDW 20.7 H Plt Count Seg Neuts % (Manual) Lymphocytes % (Manual) Seg Neutrophils # Man Lymphocytes # (Manual) Monocytes # (Manual) PT INR D-Dimer ABG pH ABG pO2 114.2 H ABG HCO3 ABG O2 Saturation ABG Base Excess ABG Hemoglobin 9.1 L Oxyhemoglobin Sodium 134 L Potassium Chloride Carbon Dioxide 20 L BUN 34 H Creatinine Glucose POC Glucose Lactic Acid Calcium 7.1 L Phosphorus Magnesium AST ALT Alkaline Phosphatase Lactate Dehydrogenase Troponin T C-Reactive Protein NT-Pro-B Natriuret Pep Total Protein Albumin LDL Cholesterol Direct Vitamin B12 Crossmatch 02/05/22 02/05/22 02/05/22 07:07 07:07 23:54 WBC RBC 3.30 L Hgb 9.0 L Hct 28.5 L MCV MCH 27 L MCHC RDW 21.0 H Plt Count Seg Neuts % (Manual) Lymphocytes % (Manual) Seg Neutrophils # Man Lymphocytes # (Manual) Monocytes # (Manual) PT INR D-Dimer ABG pH ABG pO2 ABG HCO3 ABG O2 Saturation ABG Base Excess ABG Hemoglobin Oxyhemoglobin Sodium Potassium Chloride Carbon Dioxide BUN 32 H Creatinine Glucose 106 H POC Glucose 110 H Lactic Acid Calcium 7.5 L Phosphorus Magnesium AST ALT Alkaline Phosphatase Lactate Dehydrogenase Troponin T C-Reactive Protein NT-Pro-B Natriuret Pep Total Protein Albumin LDL Cholesterol Direct Vitamin B12 Crossmatch 11/23/21 11/23/21 11/23/21 04:38 04:38 06:01 WBC RBC 3.23 L Hgb 8.8 L Hct 28.0 L MCV MCH 27 L MCHC RDW 21.3 H Plt Count Seg Neuts % (Manual) Lymphocytes % (Manual) Seg Neutrophils # Man Lymphocytes # (Manual) Monocytes # (Manual) PT INR D-Dimer ABG pH ABG pO2 ABG HCO3 ABG O2 Saturation ABG Base Excess ABG Hemoglobin Oxyhemoglobin Sodium 136 L Potassium Chloride Carbon Dioxide 20 L BUN 32 H Creatinine Glucose 109 H POC Glucose 115 H Lactic Acid Calcium 7.7 L Phosphorus Magnesium AST ALT Alkaline Phosphatase Lactate Dehydrogenase Troponin T C-Reactive Protein NT-Pro-B Natriuret Pep Total Protein Albumin LDL Cholesterol Direct Vitamin B12 Crossmatch 11/23/21 11/24/21 11/24/21 11:40 00:03 04:13 WBC RBC 3.18 L Hgb 8.5 L Hct 27.5 L MCV MCH 27 L MCHC RDW 21.6 H Plt Count Seg Neuts % (Manual) Lymphocytes % (Manual) Seg Neutrophils # Man Lymphocytes # (Manual) Monocytes # (Manual) PT INR D-Dimer ABG pH ABG pO2 ABG HCO3 ABG O2 Saturation ABG Base Excess ABG Hemoglobin Oxyhemoglobin Sodium Potassium Chloride Carbon Dioxide BUN Creatinine Glucose POC Glucose 117 H 111 H Lactic Acid Calcium Phosphorus Magnesium AST ALT Alkaline Phosphatase Lactate Dehydrogenase Troponin T C-Reactive Protein NT-Pro-B Natriuret Pep Total Protein Albumin LDL Cholesterol Direct Vitamin B12 Crossmatch 11/24/21 11/24/21 11/24/21 04:13 05:30 11:10 WBC RBC Hgb Hct MCV MCH MCHC RDW Plt Count Seg Neuts % (Manual) Lymphocytes % (Manual) Seg Neutrophils # Man Lymphocytes # (Manual) Monocytes # (Manual) PT INR D-Dimer ABG pH ABG pO2 ABG HCO3 ABG O2 Saturation ABG Base Excess ABG Hemoglobin Oxyhemoglobin Sodium Potassium Chloride Carbon Dioxide BUN 31 H Creatinine Glucose 101 H POC Glucose 115 H 107 H Lactic Acid Calcium 7.7 L Phosphorus Magnesium AST ALT Alkaline Phosphatase Lactate Dehydrogenase Troponin T C-Reactive Protein NT-Pro-B Natriuret Pep Total Protein Albumin LDL Cholesterol Direct Vitamin B12 Crossmatch 11/24/21 11/24/21 11/25/21 16:34 17:57 05:12 WBC RBC 3.11 L Hgb 8.2 L Hct 26.6 L MCV MCH 26 L MCHC RDW 21.3 H Plt Count Seg Neuts % (Manual) Lymphocytes % (Manual) Seg Neutrophils # Man Lymphocytes # (Manual) Monocytes # (Manual) PT INR D-Dimer ABG pH ABG pO2 ABG HCO3 ABG O2 Saturation ABG Base Excess ABG Hemoglobin Oxyhemoglobin Sodium Potassium Chloride Carbon Dioxide BUN Creatinine Glucose POC Glucose 115 H 110 H Lactic Acid Calcium Phosphorus Magnesium AST ALT Alkaline Phosphatase Lactate Dehydrogenase Troponin T C-Reactive Protein NT-Pro-B Natriuret Pep Total Protein Albumin LDL Cholesterol Direct Vitamin B12 Crossmatch 11/25/21 11/25/21 11/26/21 05:12 11:20 05:00 WBC RBC 3.30 L Hgb 8.8 L Hct 28.2 L MCV MCH 27 L MCHC RDW 20.7 H Plt Count Seg Neuts % (Manual) Lymphocytes % (Manual) Seg Neutrophils # Man Lymphocytes # (Manual) Monocytes # (Manual) PT INR D-Dimer ABG pH ABG pO2 ABG HCO3 ABG O2 Saturation ABG Base Excess ABG Hemoglobin Oxyhemoglobin Sodium Potassium Chloride Carbon Dioxide BUN 32 H Creatinine Glucose 118 H POC Glucose 118 H Lactic Acid Calcium 8.2 L Phosphorus Magnesium AST ALT Alkaline Phosphatase Lactate Dehydrogenase Troponin T C-Reactive Protein NT-Pro-B Natriuret Pep Total Protein Albumin LDL Cholesterol Direct Vitamin B12 Crossmatch 11/26/21 11/26/21 11/26/21 05:00 05:00 05:44 WBC RBC Hgb Hct MCV MCH MCHC RDW Plt Count Seg Neuts % (Manual) Lymphocytes % (Manual) Seg Neutrophils # Man Lymphocytes # (Manual) Monocytes # (Manual) PT 16.9 H INR 1.24 H D-Dimer ABG pH ABG pO2 ABG HCO3 ABG O2 Saturation ABG Base Excess ABG Hemoglobin Oxyhemoglobin Sodium Potassium Chloride Carbon Dioxide BUN 31 H Creatinine Glucose 104 H POC Glucose 110 H Lactic Acid Calcium 7.9 L Phosphorus Magnesium AST ALT Alkaline Phosphatase Lactate Dehydrogenase Troponin T C-Reactive Protein NT-Pro-B Natriuret Pep Total Protein Albumin LDL Cholesterol Direct Vitamin B12 Crossmatch 11/26/21 11/27/21 11/27/21 23:55 07:40 07:40 WBC RBC 3.18 L Hgb 8.5 L Hct 27.0 L MCV MCH 27 L MCHC RDW 21.2 H Plt Count Seg Neuts % (Manual) Lymphocytes % (Manual) Seg Neutrophils # Man Lymphocytes # (Manual) Monocytes # (Manual) PT INR D-Dimer ABG pH ABG pO2 ABG HCO3 ABG O2 Saturation ABG Base Excess ABG Hemoglobin Oxyhemoglobin Sodium Potassium Chloride Carbon Dioxide BUN 27 H Creatinine Glucose 112 H POC Glucose 63 L Lactic Acid Calcium 7.6 L Phosphorus Magnesium AST ALT Alkaline Phosphatase Lactate Dehydrogenase Troponin T C-Reactive Protein NT-Pro-B Natriuret Pep Total Protein Albumin LDL Cholesterol Direct Vitamin B12 Crossmatch 11/27/21 11/27/21 11/27/21 12:04 13:40 13:40 WBC RBC 3.31 L Hgb 8.7 L Hct 28.0 L MCV MCH 26 L MCHC RDW 20.7 H Plt Count Seg Neuts % (Manual) Lymphocytes % (Manual) Seg Neutrophils # Man Lymphocytes # (Manual) Monocytes # (Manual) PT INR D-Dimer ABG pH ABG pO2 ABG HCO3 ABG O2 Saturation ABG Base Excess ABG Hemoglobin Oxyhemoglobin Sodium 136 L Potassium Chloride Carbon Dioxide BUN 25 H Creatinine Glucose 127 H POC Glucose 109 H Lactic Acid Calcium 7.6 L Phosphorus Magnesium 1.40 L AST ALT Alkaline Phosphatase Lactate Dehydrogenase Troponin T C-Reactive Protein NT-Pro-B Natriuret Pep Total Protein Albumin LDL Cholesterol Direct Vitamin B12 Crossmatch 11/27/21 11/27/21 11/28/21 17:44 23:33 12:20 WBC RBC Hgb Hct MCV MCH MCHC RDW Plt Count Seg Neuts % (Manual) Lymphocytes % (Manual) Seg Neutrophils # Man Lymphocytes # (Manual) Monocytes # (Manual) PT INR D-Dimer ABG pH ABG pO2 ABG HCO3 ABG O2 Saturation ABG Base Excess ABG Hemoglobin Oxyhemoglobin Sodium Potassium Chloride Carbon Dioxide BUN Creatinine Glucose POC Glucose 107 H 108 H 114 H Lactic Acid Calcium Phosphorus Magnesium AST ALT Alkaline Phosphatase Lactate Dehydrogenase Troponin T C-Reactive Protein NT-Pro-B Natriuret Pep Total Protein Albumin LDL Cholesterol Direct Vitamin B12 Crossmatch 11/29/21 11/29/21 11/29/21 00:09 03:20 03:20 WBC RBC 3.05 L Hgb 8.2 L Hct 25.8 L MCV MCH 27 L MCHC RDW 20.9 H Plt Count Seg Neuts % (Manual) Lymphocytes % (Manual) Seg Neutrophils # Man Lymphocytes # (Manual) Monocytes # (Manual) PT INR D-Dimer ABG pH ABG pO2 ABG HCO3 ABG O2 Saturation ABG Base Excess ABG Hemoglobin Oxyhemoglobin Sodium 133 L Potassium Chloride Carbon Dioxide BUN 24 H Creatinine Glucose 137 H POC Glucose 134 H Lactic Acid Calcium 7.4 L Phosphorus Magnesium AST ALT Alkaline Phosphatase Lactate Dehydrogenase Troponin T C-Reactive Protein NT-Pro-B Natriuret Pep Total Protein Albumin LDL Cholesterol Direct Vitamin B12 Crossmatch 11/29/21 11/29/21 11/29/21 05:38 11:39 17:11 WBC RBC Hgb Hct MCV MCH MCHC RDW Plt Count Seg Neuts % (Manual) Lymphocytes % (Manual) Seg Neutrophils # Man Lymphocytes # (Manual) Monocytes # (Manual) PT INR D-Dimer ABG pH ABG pO2 ABG HCO3 ABG O2 Saturation ABG Base Excess ABG Hemoglobin Oxyhemoglobin Sodium Potassium Chloride Carbon Dioxide BUN Creatinine Glucose POC Glucose 117 H 143 H 124 H Lactic Acid Calcium Phosphorus Magnesium AST ALT Alkaline Phosphatase Lactate Dehydrogenase Troponin T C-Reactive Protein NT-Pro-B Natriuret Pep Total Protein Albumin LDL Cholesterol Direct Vitamin B12 Crossmatch 11/29/21 11/30/21 11/30/21 20:15 05:40 05:40 WBC 12.6 H RBC 3.41 L Hgb 9.1 L Hct 28.9 L MCV MCH 27 L MCHC RDW 20.4 H Plt Count Seg Neuts % (Manual) Lymphocytes % (Manual) Seg Neutrophils # Man Lymphocytes # (Manual) Monocytes # (Manual) PT INR D-Dimer ABG pH ABG pO2 ABG HCO3 ABG O2 Saturation ABG Base Excess ABG Hemoglobin Oxyhemoglobin Sodium Potassium Chloride Carbon Dioxide BUN 24 H Creatinine Glucose 131 H POC Glucose Lactic Acid Calcium 7.6 L Phosphorus Magnesium AST ALT Alkaline Phosphatase Lactate Dehydrogenase Troponin T 0.045 H C-Reactive Protein NT-Pro-B Natriuret Pep Total Protein Albumin LDL Cholesterol Direct 25 L Vitamin B12 Crossmatch 11/30/21 11/30/21 12/01/21 11:29 16:51 05:00 WBC RBC 2.97 L Hgb 8.0 L Hct 25.0 L MCV MCH 27 L MCHC RDW 20.8 H Plt Count Seg Neuts % (Manual) Lymphocytes % (Manual) Seg Neutrophils # Man Lymphocytes # (Manual) Monocytes # (Manual) PT INR D-Dimer ABG pH ABG pO2 ABG HCO3 ABG O2 Saturation ABG Base Excess ABG Hemoglobin Oxyhemoglobin Sodium Potassium Chloride Carbon Dioxide BUN Creatinine Glucose POC Glucose 123 H 114 H Lactic Acid Calcium Phosphorus Magnesium AST ALT Alkaline Phosphatase Lactate Dehydrogenase Troponin T C-Reactive Protein NT-Pro-B Natriuret Pep Total Protein Albumin LDL Cholesterol Direct Vitamin B12 Crossmatch 12/01/21 12/01/21 12/01/21 05:00 05:25 11:54 WBC RBC Hgb Hct MCV MCH MCHC RDW Plt Count Seg Neuts % (Manual) Lymphocytes % (Manual) Seg Neutrophils # Man Lymphocytes # (Manual) Monocytes # (Manual) PT INR D-Dimer ABG pH ABG pO2 ABG HCO3 ABG O2 Saturation ABG Base Excess ABG Hemoglobin Oxyhemoglobin Sodium 136 L Potassium Chloride Carbon Dioxide BUN 24 H Creatinine Glucose 117 H POC Glucose 108 H 107 H Lactic Acid Calcium 7.5 L Phosphorus Magnesium 1.60 L AST ALT Alkaline Phosphatase Lactate Dehydrogenase Troponin T C-Reactive Protein NT-Pro-B Natriuret Pep Total Protein Albumin LDL Cholesterol Direct Vitamin B12 Crossmatch 12/01/21 12/02/21 12/02/21 17:40 00:07 04:20 WBC RBC 2.92 L Hgb 7.7 L Hct 24.3 L MCV MCH 26 L MCHC RDW 20.5 H Plt Count Seg Neuts % (Manual) Lymphocytes % (Manual) Seg Neutrophils # Man Lymphocytes # (Manual) Monocytes # (Manual) PT INR D-Dimer ABG pH ABG pO2 ABG HCO3 ABG O2 Saturation ABG Base Excess ABG Hemoglobin Oxyhemoglobin Sodium Potassium Chloride Carbon Dioxide BUN Creatinine Glucose POC Glucose 123 H 110 H Lactic Acid Calcium Phosphorus Magnesium AST ALT Alkaline Phosphatase Lactate Dehydrogenase Troponin T C-Reactive Protein NT-Pro-B Natriuret Pep Total Protein Albumin LDL Cholesterol Direct Vitamin B12 Crossmatch 12/02/21 12/02/21 12/02/21 04:20 11:17 18:20 WBC RBC Hgb Hct MCV MCH MCHC RDW Plt Count Seg Neuts % (Manual) Lymphocytes % (Manual) Seg Neutrophils # Man Lymphocytes # (Manual) Monocytes # (Manual) PT INR D-Dimer ABG pH ABG pO2 ABG HCO3 ABG O2 Saturation ABG Base Excess ABG Hemoglobin Oxyhemoglobin Sodium 135 L Potassium Chloride Carbon Dioxide BUN 26 H Creatinine Glucose 121 H POC Glucose 117 H 113 H Lactic Acid Calcium 7.4 L Phosphorus Magnesium AST ALT Alkaline Phosphatase Lactate Dehydrogenase Troponin T C-Reactive Protein NT-Pro-B Natriuret Pep Total Protein Albumin LDL Cholesterol Direct Vitamin B12 Crossmatch 12/03/21 12/03/21 12/03/21 00:12 04:00 04:00 WBC RBC 2.99 L Hgb 7.8 L Hct 24.6 L MCV MCH 26 L MCHC RDW 20.2 H Plt Count Seg Neuts % (Manual) Lymphocytes % (Manual) Seg Neutrophils # Man Lymphocytes # (Manual) Monocytes # (Manual) PT INR D-Dimer ABG pH ABG pO2 ABG HCO3 ABG O2 Saturation ABG Base Excess ABG Hemoglobin Oxyhemoglobin Sodium 136 L Potassium Chloride Carbon Dioxide BUN 27 H Creatinine Glucose 133 H POC Glucose 121 H Lactic Acid Calcium 7.5 L Phosphorus Magnesium AST ALT Alkaline Phosphatase Lactate Dehydrogenase Troponin T C-Reactive Protein NT-Pro-B Natriuret Pep Total Protein Albumin LDL Cholesterol Direct Vitamin B12 Crossmatch 12/03/21 12/03/21 12/03/21 06:30 11:13 16:00 WBC RBC Hgb Hct MCV MCH MCHC RDW Plt Count Seg Neuts % (Manual) Lymphocytes % (Manual) Seg Neutrophils # Man Lymphocytes # (Manual) Monocytes # (Manual) PT INR D-Dimer ABG pH ABG pO2 ABG HCO3 ABG O2 Saturation ABG Base Excess ABG Hemoglobin Oxyhemoglobin Sodium Potassium Chloride Carbon Dioxide BUN Creatinine Glucose POC Glucose 129 H 125 H 125 H Lactic Acid Calcium Phosphorus Magnesium AST ALT Alkaline Phosphatase Lactate Dehydrogenase Troponin T C-Reactive Protein NT-Pro-B Natriuret Pep Total Protein Albumin LDL Cholesterol Direct Vitamin B12 Crossmatch 12/03/21 12/04/21 12/04/21 23:32 04:00 05:36 WBC RBC Hgb Hct MCV MCH MCHC RDW Plt Count Seg Neuts % (Manual) Lymphocytes % (Manual) Seg Neutrophils # Man Lymphocytes # (Manual) Monocytes # (Manual) PT INR D-Dimer ABG pH ABG pO2 ABG HCO3 ABG O2 Saturation ABG Base Excess ABG Hemoglobin Oxyhemoglobin Sodium Potassium 3.5 L Chloride Carbon Dioxide BUN 26 H Creatinine 0.5 L Glucose 151 H POC Glucose 133 H 142 H Lactic Acid Calcium 8.3 L Phosphorus Magnesium AST ALT Alkaline Phosphatase Lactate Dehydrogenase Troponin T C-Reactive Protein NT-Pro-B Natriuret Pep Total Protein Albumin LDL Cholesterol Direct Vitamin B12 Crossmatch 12/04/21 12/04/21 12/05/21 11:24 15:58 04:36 WBC RBC Hgb Hct MCV MCH MCHC RDW Plt Count Seg Neuts % (Manual) Lymphocytes % (Manual) Seg Neutrophils # Man Lymphocytes # (Manual) Monocytes # (Manual) PT INR D-Dimer ABG pH ABG pO2 ABG HCO3 ABG O2 Saturation ABG Base Excess ABG Hemoglobin Oxyhemoglobin Sodium Potassium Chloride Carbon Dioxide BUN 21 H Creatinine 0.5 L Glucose 119 H POC Glucose 130 H 111 H Lactic Acid Calcium 8.3 L Phosphorus Magnesium AST ALT Alkaline Phosphatase Lactate Dehydrogenase Troponin T C-Reactive Protein NT-Pro-B Natriuret Pep Total Protein Albumin LDL Cholesterol Direct Vitamin B12 Crossmatch 12/05/21 12/05/21 12/05/21 05:15 10:40 11:12 WBC RBC 2.98 L Hgb 8.1 L Hct 24.6 L MCV MCH 27 L MCHC RDW 20.8 H Plt Count Seg Neuts % (Manual) Lymphocytes % (Manual) Seg Neutrophils # Man Lymphocytes # (Manual) Monocytes # (Manual) PT INR D-Dimer ABG pH ABG pO2 ABG HCO3 ABG O2 Saturation ABG Base Excess ABG Hemoglobin Oxyhemoglobin Sodium Potassium Chloride Carbon Dioxide BUN Creatinine Glucose POC Glucose 107 H 110 H Lactic Acid Calcium Phosphorus Magnesium AST ALT Alkaline Phosphatase Lactate Dehydrogenase Troponin T C-Reactive Protein NT-Pro-B Natriuret Pep Total Protein Albumin LDL Cholesterol Direct Vitamin B12 Crossmatch 12/05/21 12/06/21 12/06/21 23:39 04:25 04:25 WBC RBC 2.95 L Hgb 7.9 L Hct 24.7 L MCV MCH 27 L MCHC RDW 20.9 H Plt Count Seg Neuts % (Manual) Lymphocytes % (Manual) Seg Neutrophils # Man Lymphocytes # (Manual) Monocytes # (Manual) PT INR D-Dimer ABG pH ABG pO2 ABG HCO3 ABG O2 Saturation ABG Base Excess ABG Hemoglobin Oxyhemoglobin Sodium Potassium Chloride Carbon Dioxide BUN 22 H Creatinine 0.5 L Glucose 136 H POC Glucose 118 H Lactic Acid Calcium 8.2 L Phosphorus Magnesium AST ALT Alkaline Phosphatase Lactate Dehydrogenase Troponin T C-Reactive Protein NT-Pro-B Natriuret Pep Total Protein Albumin LDL Cholesterol Direct Vitamin B12 Crossmatch 12/06/21 12/06/21 05:28 11:27 WBC RBC Hgb Hct MCV MCH MCHC RDW Plt Count Seg Neuts % (Manual) Lymphocytes % (Manual) Seg Neutrophils # Man Lymphocytes # (Manual) Monocytes # (Manual) PT INR D-Dimer ABG pH ABG pO2 ABG HCO3 ABG O2 Saturation ABG Base Excess ABG Hemoglobin Oxyhemoglobin Sodium Potassium Chloride Carbon Dioxide BUN Creatinine Glucose POC Glucose 142 H 126 H Lactic Acid Calcium Phosphorus Magnesium AST ALT Alkaline Phosphatase Lactate Dehydrogenase Troponin T C-Reactive Protein NT-Pro-B Natriuret Pep Total Protein Albumin LDL Cholesterol Direct Vitamin B12 Crossmatch Allied health notes reviewed: RT
[2021-12-06] MEDS: traZODone 50 MG TAB PO SCH (22:10)
[2021-12-06] MEDS: MELATONIN 5 MG TAB PO SCH (22:11)
[2021-12-06] MEDS: PRAVASTATIN 20 MG TAB PO SCH (22:11)
[2021-12-06] MEDS: QUEtiapine 25 MG TAB PO SCH (22:11)
[2021-12-07] MEDS: INSULIN LISPRO 100 UNIT/ML SUB-Q SCH ×2 (00:58→06:07)
[2021-12-07] MEDS: NORepinephrine/NS 8 MG-250 ML 8 MG/250 ML INFUS..BTL IV SCH (00:58)
[2021-12-07 05:08] LABS: Hematocrit 21.8 % (30.3-42.9); Hemoglobin 7.2 gm/dl (10.1-14.3)
[2021-12-07 05:26] LABS: Blood Urea Nitrogen 22 mg/dL (7-17); Hemolysis Index 1
[2021-12-07 05:27] LABS: BUN/Creatinine Ratio 37
[2021-12-07] MEDS: LEVOTHYROXINE 125 MCG TAB PO SCH (06:23)
[2021-12-07] MEDS: SUCRALFATE 1 GM/10 ML ORAL LIQD PO SCH ×4 (08:00→21:47)
[2021-12-07] MEDS: HYDROcodone/ACETAMINOPHEN 10-325MG TAB FEEDTUBE SCH ×3 (08:01→21:47)
[2021-12-07] MEDS ORDERED: MAGNESIUM SULFATE 2 GM/50 ML BAG IV ONE (09:09)
[2021-12-07] MEDS: busPIRone 5 MG TAB PO SCH ×2 (09:24→21:47)
[2021-12-07] MEDS: LANSOPRAZOLE 30 MG SOLUTAB FEEDTUBE SCH ×2 (09:24→21:47)
[2021-12-07] MEDS: GABAPENTIN 100 MG CAP PO SCH (09:24)
[2021-12-07] MEDS: SENNOSIDES ORAL LIQD 8.8 MG/5 ML ORAL LIQD PO SCH ×2 (09:25→21:49)
[2021-12-07] MEDS: METOPROLOL TARTRATE 25 MG TAB PO SCH ×2 (09:26→21:48)
[2021-12-07] MEDS: DOCUSATE SODIUM 100 MG/10 ML ORAL LIQD PO SCH ×2 (09:28→21:48)
[2021-12-07] MEDS: POLYETHYLENE GLYCOL 3350 17 GM POWDER PO SCH (09:28)
--- NOTE | 2021-12-07 14:15 | Progress Note ---
Assessment and Plan Severe Sepsis POA vs septic shock- 11/03/2021 blood culture: 2 sets positive for GPC Acute respiratory failure with hypoxia, s/p trach on MVS Acute microcytic anemia Bilateral pneumonia Left pleural effusion Cardiomyopathy EF 30-35% Moderate pulmonary HTN RVSP 49 Acute DVT s/p IVC Anemia Daily SBTs as tolerated. Plan fro ATP trial today Conservative fluid management as tolerated by hemodynamics and renal function Continue to monitor hemoglobin and transfuse as clinically indicated to keep HgB>7g/dL Continue to optimize enteric nutritional support Maintain sleep-wake cycle PT/OT, increase activity Discharge planning- possible LTACH - continue to titrate supplemental oxygen to keep SPO2 88-90% - VAP bundle addressed, aspiration precautions, HOB >40 - continue bronchodilators with pulmonary hygiene per RT - continue avoid nephrotoxins, renally dose all medications - Accuchecks with glycemic control per SSI (While critically ill target blood glucose of 140-180 mg/dL; avoid hypoglycemia) - continue to avoid benzodiazepines, reduce the possibility of delirium -trend temperature curve, trend WCC, continue to monitor off antibiotics - Maintenance of sleep-wake cycle, avoid delirium -Stress ulcer prophylaxis (Lansoprazole) -VTE prophyalxis- s/p IVC filter. No anticoagulation 11/18 EGD- Large cratered ulcer in the posterior duodenal bulb about 2 cm in diameter.Visible vessel present. Mild active oozing from the ulcer bed. A total of 3 injections were performed around the ulcer for a total of 2.5 cc of dilute epinephrine and hemostasis was obtained. -mobility, off loading and frequent turning to prevent pressure ulcer -continue with enteric nutritional support via PEG, at goal rate - Continue to monitor hemodynamics closely - continue other care per attending / other consultants COVID SPECIFIC INTERVENTIONS - Negative CONDITION: FAIR PROGNOSIS: GUARDED CODE STATUS: FULL CODE The high probability of a clinically significant, sudden or life-threatening deterioration of the [respiratory, cardiovascular and hematologic] system(s) required my full and direct attention, intervention and personal management. The aggregate critical care time was [33] minutes without overlap. Time includes spent on; [x] Data Review and interpretation [x] Patient assessment and monitoring of vital signs [x] Documentation [x] Medication orders and management Subjective Date of service: 12/07/21 Principal diagnosis: Septic shock; AHRF; Anemia; Pneumonia; L. pleural effusion; HFrEF; Pulm HTN Interval history: Follow up fro acute hypoxemic resp failure s/p tracheostomy to MVS ; Septic and cardiogenic shock; severe anemia; Patient seen and examined. Vitals, labs, medications, chart and imaging reviewed. Discussed with respiratory and nursing care staff. Currently on PSV, no fevers overnight, no diarrhea, no vomiting. Episodes of agitation overnight,off norepinephrine Tolerating tube feeding, she is interactive with appropriate responses Objective Vital Signs - 12hr 12/07/21 12/07/21 12/07/21 02:30 02:45 03:01 Temperature Pulse Rate 63 67 64 Pulse Rate [ From Monitor] Respiratory 13 14 14 Rate Blood Pressure 102/43 102/40 91/36 O2 Sat by Pulse Oximetry O2 Sat by Pulse Oximetry [ Assessment] 12/07/21 12/07/21 12/07/21 03:15 03:31 03:45 Temperature Pulse Rate 64 80 67 Pulse Rate [ From Monitor] Respiratory 13 11 L 10 L Rate Blood Pressure 91/36 112/42 112/42 O2 Sat by Pulse 96 95 Oximetry O2 Sat by Pulse Oximetry [ Assessment] 12/07/21 12/07/21 12/07/21 04:00 04:01 04:15 Temperature 99.8 F H Pulse Rate 67 69 67 Pulse Rate [ 68 From Monitor] Respiratory 11 L 15 11 L Rate Blood Pressure 103/34 103/34 O2 Sat by Pulse 98 94 96 Oximetry O2 Sat by Pulse Oximetry [ Assessment] 12/07/21 12/07/21 12/07/21 04:31 04:37 04:39 Temperature Pulse Rate 66 67 Pulse Rate [ From Monitor] Respiratory 7 L Rate Blood Pressure 95/27 95/27 O2 Sat by Pulse 94 99 Oximetry O2 Sat by Pulse 99 Oximetry [ Assessment] 12/07/21 12/07/21 12/07/21 04:45 05:01 05:15 Temperature Pulse Rate 77 66 69 Pulse Rate [ From Monitor] Respiratory 14 13 8 L Rate Blood Pressure 95/27 99/31 99/31 O2 Sat by Pulse 97 97 96 Oximetry O2 Sat by Pulse Oximetry [ Assessment] 12/07/21 12/07/21 12/07/21 05:31 05:45 06:01 Temperature Pulse Rate 77 81 70 Pulse Rate [ From Monitor] Respiratory 13 18 14 Rate Blood Pressure 116/47 116/47 147/53 O2 Sat by Pulse 98 100 93 Oximetry O2 Sat by Pulse Oximetry [ Assessment] 12/07/21 12/07/21 12/07/21 06:15 06:30 06:45 Temperature Pulse Rate 68 67 66 Pulse Rate [ From Monitor] Respiratory 15 14 14 Rate Blood Pressure 147/53 106/35 115/43 O2 Sat by Pulse 96 95 90 Oximetry O2 Sat by Pulse Oximetry [ Assessment] 12/07/21 12/07/21 12/07/21 07:00 07:15 07:24 Temperature 98.6 F Pulse Rate 67 68 Pulse Rate [ From Monitor] Respiratory 14 14 Rate Blood Pressure 115/46 124/53 O2 Sat by Pulse 93 Oximetry O2 Sat by Pulse Oximetry [ Assessment] 12/07/21 12/07/21 12/07/21 07:30 07:45 08:00 Temperature 98.6 F Pulse Rate 69 70 69 Pulse Rate [ 71 From Monitor] Respiratory 14 19 14 Rate Blood Pressure 114/49 121/50 119/47 O2 Sat by Pulse 96 94 97 Oximetry O2 Sat by Pulse 99 Oximetry [ Assessment] 12/07/21 12/07/21 12/07/21 08:15 08:30 08:40 Temperature Pulse Rate 71 66 67 Pulse Rate [ From Monitor] Respiratory 15 13 Rate Blood Pressure 120/48 109/42 116/56 O2 Sat by Pulse 91 96 99 Oximetry O2 Sat by Pulse Oximetry [ Assessment] 12/07/21 12/07/21 12/07/21 08:45 09:00 09:15 Temperature Pulse Rate 71 76 81 Pulse Rate [ From Monitor] Respiratory 21 24 19 Rate Blood Pressure 109/42 116/56 116/56 O2 Sat by Pulse 97 97 94 Oximetry O2 Sat by Pulse Oximetry [ Assessment] 12/07/21 12/07/21 12/07/21 09:16 09:24 09:26 Temperature Pulse Rate 82 Pulse Rate [ From Monitor] Respiratory Rate Blood Pressure 125/54 O2 Sat by Pulse 96 96 Oximetry O2 Sat by Pulse Oximetry [ Assessment] 12/07/21 12/07/21 12/07/21 09:30 09:46 10:00 Temperature Pulse Rate 84 94 H 90 Pulse Rate [ From Monitor] Respiratory 26 H 29 H 18 Rate Blood Pressure 120/48 135/78 135/78 O2 Sat by Pulse 100 95 93 Oximetry O2 Sat by Pulse Oximetry [ Assessment] 12/07/21 12/07/21 12/07/21 10:16 10:30 10:44 Temperature Pulse Rate 99 H 106 H 115 H Pulse Rate [ From Monitor] Respiratory 31 H 40 H Rate Blood Pressure 96/66 157/98 157/98 O2 Sat by Pulse 82 L 94 98 Oximetry O2 Sat by Pulse Oximetry [ Assessment] 12/07/21 12/07/21 12/07/21 10:46 11:00 11:15 Temperature Pulse Rate 82 77 Pulse Rate [ From Monitor] Respiratory 22 21 Rate Blood Pressure 156/84 156/84 106/54 O2 Sat by Pulse 93 91 92 Oximetry O2 Sat by Pulse Oximetry [ Assessment] 12/07/21 12/07/21 12/07/21 11:27 11:30 11:45 Temperature 98.0 F Pulse Rate 74 77 Pulse Rate [ From Monitor] Respiratory 19 20 Rate Blood Pressure 115/41 105/50 O2 Sat by Pulse 89 93 Oximetry O2 Sat by Pulse Oximetry [ Assessment] 12/07/21 12/07/21 12/07/21 12:00 12:15 12:48 Temperature Pulse Rate 76 79 78 Pulse Rate [ 79 From Monitor] Respiratory 12 14 Rate Blood Pressure 134/45 118/49 134/45 O2 Sat by Pulse 95 92 95 Oximetry O2 Sat by Pulse Oximetry [ Assessment] Constitutional: no acute distress, alert, other (trach to MVS, frail elderly woman with mildly increased respiratory effort at rest) Eyes: non-icteric ENT: oropharynx moist, oropharyngeal exudate pre (clear frothy), other (+ Midline tracheostomy) Neck: supple, no lymphadenopathy, no JVD Effort: mildly labored Ascultation: Bilateral: diminished breath sounds, rhonchi, other (Right chest tube) Percussion: Bilateral: not dull Cardiovascular: regular rate and rhythm, other (S1,S2) Gastrointestinal: normoactive bowel sounds, soft, non-tender, non-distended (protuberant) Integumentary: normal Extremities: no cyanosis, pink and warm, pulses normal, edema (upper etremities) Neurologic: normal mental status, non-focal exam (grossly), pupils equal and round, motor strength normal and Psychiatric: mood appropriate, affect normal CBC and BMP: 12/08/21 04:00 12/08/21 04:00 ABG, PT/INR, D-dimer: ABG ABG pH 7.449 pH Units (7.350-7.450) 11/21/21 16:00 ABG pCO2 32.1 mm Hg 11/21/21 16:00 ABG pO2 114.2 mm Hg (80.0-90.0) H 11/21/21 16:00 ABG O2 Saturation 98.3 % (95.0-99.0) 11/21/21 16:00 PT/INR, D-dimer PT 16.9 Sec. (12.2-14.9) H 11/26/21 05:00 INR 1.24 (0.87-1.13) H 11/26/21 05:00 D-Dimer 2655.00 ng/mlDDU (0-234) H 11/11/21 04:28 Abnormal lab findings: Abnormal Labs 11/03/21 11/03/21 11/03/21 22:32 22:32 22:32 WBC 29.3 H RBC 2.93 L Hgb 6.1 L Hct 21.9 L MCV 75 L MCH 21 L MCHC 28 L RDW 19.7 H Plt Count Seg Neuts % (Manual) 97.0 H Lymphocytes % (Manual) 3.0 L Seg Neutrophils # Man 28.4 H Lymphocytes # (Manual) 0.9 L Monocytes # (Manual) PT 18.6 H INR 1.40 H D-Dimer ABG pH ABG pO2 ABG HCO3 ABG O2 Saturation ABG Base Excess ABG Hemoglobin Oxyhemoglobin Sodium Potassium Chloride Carbon Dioxide 20 L BUN 33 H Creatinine Glucose 119 H POC Glucose Lactic Acid Calcium 8.3 L Phosphorus Magnesium AST ALT Alkaline Phosphatase Lactate Dehydrogenase Troponin T 0.035 H C-Reactive Protein NT-Pro-B Natriuret Pep Total Protein Albumin LDL Cholesterol Direct 34 L Vitamin B12 Crossmatch 11/03/21 11/03/21 11/03/21 22:32 22:32 23:57 WBC RBC Hgb Hct MCV MCH MCHC RDW Plt Count Seg Neuts % (Manual) Lymphocytes % (Manual) Seg Neutrophils # Man Lymphocytes # (Manual) Monocytes # (Manual) PT INR D-Dimer ABG pH ABG pO2 ABG HCO3 ABG O2 Saturation ABG Base Excess ABG Hemoglobin Oxyhemoglobin Sodium Potassium Chloride Carbon Dioxide BUN Creatinine Glucose POC Glucose Lactic Acid 3.70 H* Calcium Phosphorus Magnesium AST ALT Alkaline Phosphatase 139 H Lactate Dehydrogenase Troponin T C-Reactive Protein NT-Pro-B Natriuret Pep 7895 H Total Protein Albumin 3.5 L LDL Cholesterol Direct Vitamin B12 Crossmatch See Detail 11/04/21 11/04/21 11/05/21 00:59 13:58 00:51 WBC 27.9 H RBC 3.28 L Hgb 7.3 L Hct 25.5 L MCV 78 L MCH 22 L MCHC 29 L RDW 19.1 H Plt Count Seg Neuts % (Manual) 96.0 H Lymphocytes % (Manual) 2.0 L Seg Neutrophils # Man 26.8 H Lymphocytes # (Manual) 0.6 L Monocytes # (Manual) PT INR D-Dimer ABG pH ABG pO2 ABG HCO3 ABG O2 Saturation ABG Base Excess ABG Hemoglobin Oxyhemoglobin Sodium Potassium Chloride Carbon Dioxide BUN Creatinine Glucose POC Glucose Lactic Acid Calcium Phosphorus Magnesium AST ALT Alkaline Phosphatase Lactate Dehydrogenase Troponin T 0.051 H D 0.032 H D C-Reactive Protein NT-Pro-B Natriuret Pep Total Protein Albumin LDL Cholesterol Direct Vitamin B12 Crossmatch 11/05/21 11/05/21 11/05/21 06:11 06:11 06:11 WBC 31.8 H RBC 3.57 L Hgb 8.0 L Hct 27.7 L MCV 78 L MCH 22 L MCHC 29 L RDW 19.2 H Plt Count Seg Neuts % (Manual) 91.0 H Lymphocytes % (Manual) 4.5 L Seg Neutrophils # Man 28.9 H Lymphocytes # (Manual) Monocytes # (Manual) 1.1 H PT INR D-Dimer 1494.53 H ABG pH ABG pO2 ABG HCO3 ABG O2 Saturation ABG Base Excess ABG Hemoglobin Oxyhemoglobin Sodium Potassium Chloride Carbon Dioxide 19 L BUN 42 H Creatinine Glucose 115 H POC Glucose Lactic Acid Calcium Phosphorus Magnesium AST 43 H ALT Alkaline Phosphatase Lactate Dehydrogenase 187 H Troponin T C-Reactive Protein 22.20 H NT-Pro-B Natriuret Pep Total Protein 6.0 L Albumin 3.2 L LDL Cholesterol Direct Vitamin B12 Crossmatch 11/05/21 11/05/21 11/06/21 06:11 12:15 00:30 WBC RBC Hgb Hct MCV MCH MCHC RDW Plt Count Seg Neuts % (Manual) Lymphocytes % (Manual) Seg Neutrophils # Man Lymphocytes # (Manual) Monocytes # (Manual) PT INR D-Dimer ABG pH ABG pO2 ABG HCO3 ABG O2 Saturation ABG Base Excess ABG Hemoglobin Oxyhemoglobin Sodium Potassium Chloride Carbon Dioxide BUN Creatinine Glucose POC Glucose 113 H 69 L Lactic Acid Calcium Phosphorus Magnesium AST ALT Alkaline Phosphatase Lactate Dehydrogenase Troponin T 0.033 H C-Reactive Protein NT-Pro-B Natriuret Pep Total Protein Albumin LDL Cholesterol Direct Vitamin B12 Crossmatch 11/06/21 11/06/21 11/06/21 05:50 15:50 15:50 WBC 25.5 H RBC 3.62 L Hgb 8.0 L Hct 27.5 L MCV 76 L MCH 22 L MCHC 29 L RDW 19.6 H Plt Count Seg Neuts % (Manual) 92.0 H Lymphocytes % (Manual) 5.0 L Seg Neutrophils # Man 23.5 H Lymphocytes # (Manual) Monocytes # (Manual) PT INR D-Dimer ABG pH 7.305 L ABG pO2 ABG HCO3 15.8 L ABG O2 Saturation ABG Base Excess -9.6 L ABG Hemoglobin 8.6 L Oxyhemoglobin 94.6 L Sodium Potassium Chloride 113.9 H Carbon Dioxide 17 L BUN 56 H Creatinine Glucose 114 H POC Glucose Lactic Acid Calcium 7.9 L Phosphorus Magnesium AST 1410 H ALT 934 H Alkaline Phosphatase 142 H Lactate Dehydrogenase Troponin T C-Reactive Protein NT-Pro-B Natriuret Pep Total Protein 5.0 L Albumin 2.6 L LDL Cholesterol Direct Vitamin B12 Crossmatch 11/07/21 11/07/21 11/07/21 03:30 04:50 08:07 WBC RBC Hgb Hct MCV MCH MCHC RDW Plt Count Seg Neuts % (Manual) Lymphocytes % (Manual) Seg Neutrophils # Man Lymphocytes # (Manual) Monocytes # (Manual) PT INR D-Dimer ABG pH ABG pO2 296.9 H ABG HCO3 18.1 L ABG O2 Saturation 99.5 H ABG Base Excess -5.9 L ABG Hemoglobin 7.6 L Oxyhemoglobin Sodium Potassium Chloride Carbon Dioxide BUN Creatinine Glucose POC Glucose 106 H 108 H Lactic Acid Calcium Phosphorus Magnesium AST ALT Alkaline Phosphatase Lactate Dehydrogenase Troponin T C-Reactive Protein NT-Pro-B Natriuret Pep Total Protein Albumin LDL Cholesterol Direct Vitamin B12 Crossmatch 11/08/21 11/08/21 11/08/21 03:10 18:05 23:43 WBC RBC Hgb Hct MCV MCH MCHC RDW Plt Count Seg Neuts % (Manual) Lymphocytes % (Manual) Seg Neutrophils # Man Lymphocytes # (Manual) Monocytes # (Manual) PT INR D-Dimer ABG pH ABG pO2 127.4 H ABG HCO3 ABG O2 Saturation ABG Base Excess -3.4 L ABG Hemoglobin 7.4 L Oxyhemoglobin Sodium Potassium Chloride Carbon Dioxide BUN Creatinine Glucose POC Glucose 113 H 141 H Lactic Acid Calcium Phosphorus Magnesium AST ALT Alkaline Phosphatase Lactate Dehydrogenase Troponin T C-Reactive Protein NT-Pro-B Natriuret Pep Total Protein Albumin LDL Cholesterol Direct Vitamin B12 Crossmatch 11/08/21 11/08/21 11/09/21 Unknown Unknown 02:00 WBC 14.5 H RBC 3.35 L Hgb 7.5 L 8.1 L Hct 25.4 L 27.6 L MCV 76 L 76 L MCH 23 L 22 L MCHC RDW 19.9 H 19.9 H Plt Count Seg Neuts % (Manual) Lymphocytes % (Manual) Seg Neutrophils # Man Lymphocytes # (Manual) Monocytes # (Manual) PT INR D-Dimer ABG pH ABG pO2 ABG HCO3 ABG O2 Saturation ABG Base Excess ABG Hemoglobin Oxyhemoglobin Sodium 154 H D Potassium 3.3 L Chloride 120.7 H Carbon Dioxide 20 L BUN 38 H Creatinine Glucose POC Glucose Lactic Acid Calcium 8.3 L Phosphorus Magnesium AST ALT Alkaline Phosphatase Lactate Dehydrogenase Troponin T C-Reactive Protein NT-Pro-B Natriuret Pep Total Protein Albumin LDL Cholesterol Direct Vitamin B12 Crossmatch 11/09/21 11/09/21 11/09/21 02:00 02:31 05:12 WBC RBC Hgb Hct MCV MCH MCHC RDW Plt Count Seg Neuts % (Manual) Lymphocytes % (Manual) Seg Neutrophils # Man Lymphocytes # (Manual) Monocytes # (Manual) PT INR D-Dimer ABG pH 7.479 H ABG pO2 121.3 H ABG HCO3 ABG O2 Saturation ABG Base Excess ABG Hemoglobin 7.3 L Oxyhemoglobin Sodium Potassium Chloride 112.5 H Carbon Dioxide BUN 33 H Creatinine Glucose 161 H POC Glucose 135 H Lactic Acid Calcium Phosphorus Magnesium AST 251 H ALT 481 H Alkaline Phosphatase Lactate Dehydrogenase Troponin T C-Reactive Protein NT-Pro-B Natriuret Pep Total Protein 5.0 L Albumin 2.8 L LDL Cholesterol Direct Vitamin B12 Crossmatch 11/09/21 11/09/21 11/09/21 11:33 16:32 23:28 WBC RBC Hgb Hct MCV MCH MCHC RDW Plt Count Seg Neuts % (Manual) Lymphocytes % (Manual) Seg Neutrophils # Man Lymphocytes # (Manual) Monocytes # (Manual) PT INR D-Dimer ABG pH ABG pO2 ABG HCO3 ABG O2 Saturation ABG Base Excess ABG Hemoglobin Oxyhemoglobin Sodium Potassium Chloride Carbon Dioxide BUN Creatinine Glucose POC Glucose 132 H 133 H 143 H Lactic Acid Calcium Phosphorus Magnesium AST ALT Alkaline Phosphatase Lactate Dehydrogenase Troponin T C-Reactive Protein NT-Pro-B Natriuret Pep Total Protein Albumin LDL Cholesterol Direct Vitamin B12 Crossmatch 11/10/21 11/10/21 11/10/21 04:00 04:00 05:35 WBC 16.0 H RBC 3.61 L Hgb 8.0 L Hct 27.1 L MCV 75 L MCH 22 L MCHC RDW 20.4 H Plt Count Seg Neuts % (Manual) Lymphocytes % (Manual) Seg Neutrophils # Man Lymphocytes # (Manual) Monocytes # (Manual) PT INR D-Dimer ABG pH ABG pO2 ABG HCO3 ABG O2 Saturation ABG Base Excess ABG Hemoglobin Oxyhemoglobin Sodium 149 H Potassium Chloride 114.1 H Carbon Dioxide BUN 31 H Creatinine Glucose 148 H POC Glucose 132 H Lactic Acid Calcium 8.2 L Phosphorus Magnesium AST ALT Alkaline Phosphatase Lactate Dehydrogenase Troponin T C-Reactive Protein NT-Pro-B Natriuret Pep Total Protein Albumin LDL Cholesterol Direct Vitamin B12 Crossmatch 11/10/21 11/10/21 11/10/21 11:31 14:08 15:35 WBC RBC Hgb Hct MCV MCH MCHC RDW Plt Count Seg Neuts % (Manual) Lymphocytes % (Manual) Seg Neutrophils # Man Lymphocytes # (Manual) Monocytes # (Manual) PT INR D-Dimer ABG pH ABG pO2 126.6 H ABG HCO3 ABG O2 Saturation ABG Base Excess ABG Hemoglobin 7.4 L Oxyhemoglobin Sodium Potassium Chloride Carbon Dioxide BUN Creatinine Glucose POC Glucose 147 H Lactic Acid Calcium Phosphorus Magnesium AST ALT Alkaline Phosphatase Lactate Dehydrogenase Troponin T C-Reactive Protein NT-Pro-B Natriuret Pep Total Protein Albumin LDL Cholesterol Direct Vitamin B12 1823 H Crossmatch 11/10/21 11/11/21 11/11/21 17:53 00:55 04:28 WBC RBC Hgb Hct MCV MCH MCHC RDW Plt Count Seg Neuts % (Manual) Lymphocytes % (Manual) Seg Neutrophils # Man Lymphocytes # (Manual) Monocytes # (Manual) PT INR D-Dimer ABG pH ABG pO2 ABG HCO3 ABG O2 Saturation ABG Base Excess ABG Hemoglobin Oxyhemoglobin Sodium 149 H Potassium Chloride 112.2 H Carbon Dioxide BUN 34 H Creatinine Glucose 148 H POC Glucose 140 H 145 H Lactic Acid Calcium 7.9 L Phosphorus Magnesium AST 53 H ALT 203 H Alkaline Phosphatase Lactate Dehydrogenase Troponin T C-Reactive Protein NT-Pro-B Natriuret Pep Total Protein 4.9 L Albumin 2.6 L LDL Cholesterol Direct Vitamin B12 Crossmatch 11/11/21 11/11/21 11/11/21 04:28 04:28 05:28 WBC 20.9 H RBC 3.47 L Hgb 7.5 L Hct 26.0 L MCV 75 L MCH 22 L MCHC 29 L RDW 21.6 H Plt Count 132 L Seg Neuts % (Manual) Lymphocytes % (Manual) Seg Neutrophils # Man Lymphocytes # (Manual) Monocytes # (Manual) PT INR D-Dimer 2655.00 H ABG pH ABG pO2 ABG HCO3 ABG O2 Saturation ABG Base Excess ABG Hemoglobin Oxyhemoglobin Sodium Potassium Chloride Carbon Dioxide BUN Creatinine Glucose POC Glucose 154 H Lactic Acid Calcium Phosphorus Magnesium AST ALT Alkaline Phosphatase Lactate Dehydrogenase Troponin T C-Reactive Protein NT-Pro-B Natriuret Pep Total Protein Albumin LDL Cholesterol Direct Vitamin B12 Crossmatch 11/11/21 11/11/21 11/12/21 12:38 18:13 00:14 WBC RBC Hgb Hct MCV MCH MCHC RDW Plt Count Seg Neuts % (Manual) Lymphocytes % (Manual) Seg Neutrophils # Man Lymphocytes # (Manual) Monocytes # (Manual) PT INR D-Dimer ABG pH ABG pO2 ABG HCO3 ABG O2 Saturation ABG Base Excess ABG Hemoglobin Oxyhemoglobin Sodium Potassium Chloride Carbon Dioxide BUN Creatinine Glucose POC Glucose 137 H 108 H 137 H Lactic Acid Calcium Phosphorus Magnesium AST ALT Alkaline Phosphatase Lactate Dehydrogenase Troponin T C-Reactive Protein NT-Pro-B Natriuret Pep Total Protein Albumin LDL Cholesterol Direct Vitamin B12 Crossmatch 11/12/21 11/12/21 11/12/21 05:40 06:24 11:12 WBC RBC Hgb Hct MCV MCH MCHC RDW Plt Count Seg Neuts % (Manual) Lymphocytes % (Manual) Seg Neutrophils # Man Lymphocytes # (Manual) Monocytes # (Manual) PT INR D-Dimer ABG pH 7.586 H ABG pO2 150.6 H ABG HCO3 27.2 H ABG O2 Saturation 99.1 H ABG Base Excess 5.2 H ABG Hemoglobin 7.5 L Oxyhemoglobin Sodium Potassium Chloride Carbon Dioxide BUN Creatinine Glucose POC Glucose 132 H 140 H Lactic Acid Calcium Phosphorus Magnesium AST ALT Alkaline Phosphatase Lactate Dehydrogenase Troponin T C-Reactive Protein NT-Pro-B Natriuret Pep Total Protein Albumin LDL Cholesterol Direct Vitamin B12 Crossmatch 11/12/21 11/12/21 11/12/21 14:50 14:50 17:13 WBC 19.8 H RBC 3.27 L Hgb 7.1 L Hct 24.5 L MCV 75 L MCH 22 L MCHC 29 L RDW 22.3 H Plt Count Seg Neuts % (Manual) Lymphocytes % (Manual) Seg Neutrophils # Man Lymphocytes # (Manual) Monocytes # (Manual) PT INR D-Dimer ABG pH ABG pO2 ABG HCO3 ABG O2 Saturation ABG Base Excess ABG Hemoglobin Oxyhemoglobin Sodium 150 H Potassium 3.3 L Chloride 112.0 H Carbon Dioxide BUN 40 H Creatinine Glucose 151 H POC Glucose 121 H Lactic Acid Calcium 7.4 L Phosphorus 1.70 L Magnesium 1.40 L AST ALT Alkaline Phosphatase Lactate Dehydrogenase Troponin T C-Reactive Protein NT-Pro-B Natriuret Pep Total Protein Albumin LDL Cholesterol Direct Vitamin B12 Crossmatch 11/12/21 11/13/21 11/13/21 23:19 05:34 06:30 WBC RBC Hgb Hct MCV MCH MCHC RDW Plt Count Seg Neuts % (Manual) Lymphocytes % (Manual) Seg Neutrophils # Man Lymphocytes # (Manual) Monocytes # (Manual) PT INR D-Dimer ABG pH ABG pO2 ABG HCO3 ABG O2 Saturation ABG Base Excess ABG Hemoglobin Oxyhemoglobin Sodium 149 H Potassium Chloride 60.0 L Carbon Dioxide BUN 40 H Creatinine Glucose 146 H POC Glucose 113 H 132 H Lactic Acid Calcium 7.3 L Phosphorus Magnesium 2.40 H AST ALT 72 H Alkaline Phosphatase Lactate Dehydrogenase Troponin T C-Reactive Protein NT-Pro-B Natriuret Pep Total Protein 5.2 L Albumin 2.2 L LDL Cholesterol Direct Vitamin B12 Crossmatch 11/13/21 11/13/21 11/13/21 06:30 08:30 11:19 WBC 21.2 H RBC 3.12 L Hgb 6.8 L Hct 23.2 L MCV 74 L MCH 22 L MCHC 29 L RDW 22.2 H Plt Count 135 L Seg Neuts % (Manual) Lymphocytes % (Manual) Seg Neutrophils # Man Lymphocytes # (Manual) Monocytes # (Manual) PT INR D-Dimer ABG pH ABG pO2 ABG HCO3 ABG O2 Saturation ABG Base Excess ABG Hemoglobin Oxyhemoglobin Sodium Potassium Chloride Carbon Dioxide BUN Creatinine Glucose POC Glucose 136 H Lactic Acid Calcium Phosphorus Magnesium AST ALT Alkaline Phosphatase Lactate Dehydrogenase Troponin T C-Reactive Protein NT-Pro-B Natriuret Pep Total Protein Albumin LDL Cholesterol Direct Vitamin B12 Crossmatch See Detail 11/13/21 11/14/21 11/14/21 18:21 00:01 04:46 WBC 20.0 H RBC 3.41 L Hgb 7.9 L Hct 26.8 L MCV MCH 23 L MCHC 29 L RDW 24.0 H Plt Count Seg Neuts % (Manual) Lymphocytes % (Manual) Seg Neutrophils # Man Lymphocytes # (Manual) Monocytes # (Manual) PT INR D-Dimer ABG pH ABG pO2 ABG HCO3 ABG O2 Saturation ABG Base Excess ABG Hemoglobin Oxyhemoglobin Sodium Potassium Chloride Carbon Dioxide BUN Creatinine Glucose POC Glucose 149 H 141 H Lactic Acid Calcium Phosphorus Magnesium AST ALT Alkaline Phosphatase Lactate Dehydrogenase Troponin T C-Reactive Protein NT-Pro-B Natriuret Pep Total Protein Albumin LDL Cholesterol Direct Vitamin B12 Crossmatch 11/14/21 11/14/21 11/14/21 04:46 05:10 11:10 WBC RBC Hgb Hct MCV MCH MCHC RDW Plt Count Seg Neuts % (Manual) Lymphocytes % (Manual) Seg Neutrophils # Man Lymphocytes # (Manual) Monocytes # (Manual) PT INR D-Dimer ABG pH ABG pO2 ABG HCO3 ABG O2 Saturation ABG Base Excess ABG Hemoglobin Oxyhemoglobin Sodium 148 H Potassium Chloride 113.1 H Carbon Dioxide BUN 43 H Creatinine Glucose 140 H POC Glucose 132 H 133 H Lactic Acid Calcium 7.5 L Phosphorus Magnesium AST ALT Alkaline Phosphatase Lactate Dehydrogenase Troponin T C-Reactive Protein NT-Pro-B Natriuret Pep Total Protein Albumin LDL Cholesterol Direct Vitamin B12 Crossmatch 11/14/21 11/14/21 11/14/21 16:14 17:48 23:23 WBC RBC Hgb Hct MCV MCH MCHC RDW Plt Count Seg Neuts % (Manual) Lymphocytes % (Manual) Seg Neutrophils # Man Lymphocytes # (Manual) Monocytes # (Manual) PT INR D-Dimer ABG pH ABG pO2 ABG HCO3 28.0 H ABG O2 Saturation ABG Base Excess 3.1 H ABG Hemoglobin 5.8 L Oxyhemoglobin 94.8 L Sodium Potassium Chloride Carbon Dioxide BUN Creatinine Glucose POC Glucose 130 H 136 H Lactic Acid Calcium Phosphorus Magnesium AST ALT Alkaline Phosphatase Lactate Dehydrogenase Troponin T C-Reactive Protein NT-Pro-B Natriuret Pep Total Protein Albumin LDL Cholesterol Direct Vitamin B12 Crossmatch 11/15/21 11/15/21 11/15/21 05:20 05:50 05:50 WBC 19.9 H RBC 3.50 L Hgb 8.2 L Hct 27.9 L MCV MCH 23 L MCHC 29 L RDW 24.9 H Plt Count Seg Neuts % (Manual) Lymphocytes % (Manual) Seg Neutrophils # Man Lymphocytes # (Manual) Monocytes # (Manual) PT INR D-Dimer ABG pH ABG pO2 ABG HCO3 ABG O2 Saturation ABG Base Excess ABG Hemoglobin Oxyhemoglobin Sodium 149 H Potassium Chloride 112.0 H Carbon Dioxide BUN 48 H Creatinine Glucose 152 H POC Glucose 137 H Lactic Acid Calcium 7.9 L Phosphorus Magnesium AST ALT Alkaline Phosphatase Lactate Dehydrogenase Troponin T C-Reactive Protein NT-Pro-B Natriuret Pep Total Protein Albumin LDL Cholesterol Direct Vitamin B12 Crossmatch 11/15/21 11/15/21 11/15/21 12:12 17:07 23:24 WBC RBC Hgb Hct MCV MCH MCHC RDW Plt Count Seg Neuts % (Manual) Lymphocytes % (Manual) Seg Neutrophils # Man Lymphocytes # (Manual) Monocytes # (Manual) PT INR D-Dimer ABG pH ABG pO2 ABG HCO3 ABG O2 Saturation ABG Base Excess ABG Hemoglobin Oxyhemoglobin Sodium Potassium Chloride Carbon Dioxide BUN Creatinine Glucose POC Glucose 114 H 135 H 123 H Lactic Acid Calcium Phosphorus Magnesium AST ALT Alkaline Phosphatase Lactate Dehydrogenase Troponin T C-Reactive Protein NT-Pro-B Natriuret Pep Total Protein Albumin LDL Cholesterol Direct Vitamin B12 Crossmatch 11/16/21 11/16/21 11/16/21 05:21 10:00 10:00 WBC 21.7 H RBC 2.57 L Hgb 6.0 L Hct 20.2 L D MCV MCH 24 L MCHC RDW 26.3 H Plt Count Seg Neuts % (Manual) Lymphocytes % (Manual) Seg Neutrophils # Man Lymphocytes # (Manual) Monocytes # (Manual) PT INR D-Dimer ABG pH ABG pO2 ABG HCO3 ABG O2 Saturation ABG Base Excess ABG Hemoglobin Oxyhemoglobin Sodium 153 H Potassium Chloride 114.9 H Carbon Dioxide BUN 74 H Creatinine Glucose 155 H POC Glucose 127 H Lactic Acid Calcium 8.1 L Phosphorus Magnesium AST ALT Alkaline Phosphatase Lactate Dehydrogenase Troponin T C-Reactive Protein NT-Pro-B Natriuret Pep Total Protein Albumin LDL Cholesterol Direct Vitamin B12 Crossmatch 11/16/21 11/16/21 11/16/21 11:34 14:00 15:25 WBC 17.2 H RBC 2.08 L Hgb 4.7 L* Hct 16.2 L* MCV 78 L MCH 23 L MCHC 29 L RDW 26.0 H Plt Count Seg Neuts % (Manual) 87.0 H Lymphocytes % (Manual) 8.0 L Seg Neutrophils # Man 15.0 H Lymphocytes # (Manual) Monocytes # (Manual) 0.9 H PT INR D-Dimer ABG pH ABG pO2 ABG HCO3 ABG O2 Saturation ABG Base Excess ABG Hemoglobin Oxyhemoglobin Sodium Potassium Chloride Carbon Dioxide BUN Creatinine Glucose POC Glucose 131 H Lactic Acid Calcium Phosphorus Magnesium AST ALT Alkaline Phosphatase Lactate Dehydrogenase Troponin T C-Reactive Protein NT-Pro-B Natriuret Pep Total Protein Albumin LDL Cholesterol Direct Vitamin B12 Crossmatch See Detail 11/16/21 11/16/21 11/16/21 15:25 17:21 22:43 WBC RBC Hgb 8.6 L D Hct 27.7 L D MCV MCH MCHC RDW Plt Count Seg Neuts % (Manual) Lymphocytes % (Manual) Seg Neutrophils # Man Lymphocytes # (Manual) Monocytes # (Manual) PT INR D-Dimer ABG pH ABG pO2 ABG HCO3 ABG O2 Saturation ABG Base Excess ABG Hemoglobin Oxyhemoglobin Sodium 148 H Potassium Chloride 113.2 H Carbon Dioxide BUN 84 H Creatinine Glucose 164 H POC Glucose 124 H Lactic Acid Calcium 7.6 L Phosphorus Magnesium AST ALT Alkaline Phosphatase Lactate Dehydrogenase Troponin T C-Reactive Protein NT-Pro-B Natriuret Pep Total Protein Albumin LDL Cholesterol Direct Vitamin B12 Crossmatch 11/16/21 11/17/21 11/17/21 23:07 05:33 05:56 WBC 25.1 H RBC 3.47 L Hgb 8.7 L Hct 28.5 L MCV MCH 25 L MCHC RDW 22.3 H Plt Count Seg Neuts % (Manual) Lymphocytes % (Manual) Seg Neutrophils # Man Lymphocytes # (Manual) Monocytes # (Manual) PT INR D-Dimer ABG pH ABG pO2 ABG HCO3 ABG O2 Saturation ABG Base Excess ABG Hemoglobin Oxyhemoglobin Sodium Potassium Chloride Carbon Dioxide BUN Creatinine Glucose POC Glucose 128 H 133 H Lactic Acid Calcium Phosphorus Magnesium AST ALT Alkaline Phosphatase Lactate Dehydrogenase Troponin T C-Reactive Protein NT-Pro-B Natriuret Pep Total Protein Albumin LDL Cholesterol Direct Vitamin B12 Crossmatch 11/17/21 11/17/21 11/17/21 05:56 11:00 11:55 WBC RBC Hgb 8.3 L Hct 26.9 L MCV MCH MCHC RDW Plt Count Seg Neuts % (Manual) Lymphocytes % (Manual) Seg Neutrophils # Man Lymphocytes # (Manual) Monocytes # (Manual) PT INR D-Dimer ABG pH ABG pO2 ABG HCO3 ABG O2 Saturation ABG Base Excess ABG Hemoglobin Oxyhemoglobin Sodium 151 H Potassium Chloride 113.6 H Carbon Dioxide BUN 85 H Creatinine Glucose 132 H POC Glucose 121 H Lactic Acid Calcium 7.8 L Phosphorus Magnesium AST ALT Alkaline Phosphatase Lactate Dehydrogenase Troponin T C-Reactive Protein NT-Pro-B Natriuret Pep Total Protein 5.1 L Albumin 2.2 L LDL Cholesterol Direct Vitamin B12 Crossmatch 11/17/21 11/17/21 11/18/21 18:04 18:55 00:26 WBC RBC Hgb 7.5 L 7.1 L Hct 24.8 L 23.6 L MCV MCH MCHC RDW Plt Count Seg Neuts % (Manual) Lymphocytes % (Manual) Seg Neutrophils # Man Lymphocytes # (Manual) Monocytes # (Manual) PT INR D-Dimer ABG pH ABG pO2 ABG HCO3 ABG O2 Saturation ABG Base Excess ABG Hemoglobin Oxyhemoglobin Sodium Potassium Chloride Carbon Dioxide BUN Creatinine Glucose POC Glucose 144 H Lactic Acid Calcium Phosphorus Magnesium AST ALT Alkaline Phosphatase Lactate Dehydrogenase Troponin T C-Reactive Protein NT-Pro-B Natriuret Pep Total Protein Albumin LDL Cholesterol Direct Vitamin B12 Crossmatch 11/18/21 11/18/21 11/18/21 00:43 05:10 05:10 WBC 12.5 H RBC 2.39 L Hgb 6.1 L Hct 20.2 L MCV MCH 25 L MCHC RDW 23.2 H Plt Count Seg Neuts % (Manual) Lymphocytes % (Manual) Seg Neutrophils # Man Lymphocytes # (Manual) Monocytes # (Manual) PT INR D-Dimer ABG pH ABG pO2 ABG HCO3 ABG O2 Saturation ABG Base Excess ABG Hemoglobin Oxyhemoglobin Sodium 131 L D Potassium 2.9 L* D Chloride 97.8 L Carbon Dioxide BUN 58 H Creatinine Glucose 665 H* POC Glucose 139 H Lactic Acid Calcium 7.0 L Phosphorus 2.20 L D Magnesium 1.50 L AST ALT Alkaline Phosphatase Lactate Dehydrogenase Troponin T C-Reactive Protein NT-Pro-B Natriuret Pep Total Protein Albumin LDL Cholesterol Direct Vitamin B12 Crossmatch 11/18/21 11/18/21 11/18/21 05:23 07:10 10:45 WBC RBC Hgb Hct MCV MCH MCHC RDW Plt Count Seg Neuts % (Manual) Lymphocytes % (Manual) Seg Neutrophils # Man Lymphocytes # (Manual) Monocytes # (Manual) PT INR D-Dimer ABG pH ABG pO2 ABG HCO3 ABG O2 Saturation ABG Base Excess ABG Hemoglobin Oxyhemoglobin Sodium 148 H D Potassium 3.1 L Chloride 111.9 H Carbon Dioxide BUN 63 H Creatinine Glucose 141 H POC Glucose 124 H Lactic Acid Calcium 8.1 L D Phosphorus Magnesium AST ALT Alkaline Phosphatase Lactate Dehydrogenase Troponin T C-Reactive Protein NT-Pro-B Natriuret Pep Total Protein Albumin LDL Cholesterol Direct Vitamin B12 Crossmatch See Detail 11/18/21 11/19/21 11/19/21 11:57 00:19 04:55 WBC RBC 3.35 L Hgb 9.0 L 8.9 L Hct 28.3 L D 28.1 L MCV MCH 27 L MCHC RDW 20.3 H Plt Count Seg Neuts % (Manual) Lymphocytes % (Manual) Seg Neutrophils # Man Lymphocytes # (Manual) Monocytes # (Manual) PT INR D-Dimer ABG pH ABG pO2 ABG HCO3 ABG O2 Saturation ABG Base Excess ABG Hemoglobin Oxyhemoglobin Sodium Potassium Chloride Carbon Dioxide BUN Creatinine Glucose POC Glucose 119 H Lactic Acid Calcium Phosphorus Magnesium AST ALT Alkaline Phosphatase Lactate Dehydrogenase Troponin T C-Reactive Protein NT-Pro-B Natriuret Pep Total Protein Albumin LDL Cholesterol Direct Vitamin B12 Crossmatch 11/19/21 11/19/21 11/20/21 04:55 05:42 00:55 WBC RBC Hgb 9.0 L Hct 28.6 L MCV MCH MCHC RDW Plt Count Seg Neuts % (Manual) Lymphocytes % (Manual) Seg Neutrophils # Man Lymphocytes # (Manual) Monocytes # (Manual) PT INR D-Dimer ABG pH ABG pO2 ABG HCO3 ABG O2 Saturation ABG Base Excess ABG Hemoglobin Oxyhemoglobin Sodium Potassium 3.5 L Chloride 108.6 H Carbon Dioxide BUN 47 H Creatinine Glucose 207 H POC Glucose 63 L Lactic Acid Calcium 7.1 L Phosphorus Magnesium AST ALT Alkaline Phosphatase Lactate Dehydrogenase Troponin T C-Reactive Protein NT-Pro-B Natriuret Pep Total Protein Albumin LDL Cholesterol Direct Vitamin B12 Crossmatch 11/20/21 11/20/21 11/20/21 05:40 05:40 Unknown WBC RBC 3.40 L Hgb 9.1 L Hct 28.8 L MCV MCH 27 L MCHC RDW 20.7 H Plt Count Seg Neuts % (Manual) Lymphocytes % (Manual) Seg Neutrophils # Man Lymphocytes # (Manual) Monocytes # (Manual) PT INR D-Dimer ABG pH ABG pO2 ABG HCO3 ABG O2 Saturation ABG Base Excess -2.7 L ABG Hemoglobin 9.5 L Oxyhemoglobin 94.3 L Sodium Potassium 3.5 L Chloride 108.9 H Carbon Dioxide BUN 37 H Creatinine Glucose 117 H POC Glucose Lactic Acid Calcium 7.5 L Phosphorus Magnesium AST ALT Alkaline Phosphatase Lactate Dehydrogenase Troponin T C-Reactive Protein NT-Pro-B Natriuret Pep Total Protein Albumin LDL Cholesterol Direct Vitamin B12 Crossmatch 11/21/21 11/21/21 11/21/21 04:30 04:30 16:00 WBC RBC 3.25 L Hgb 8.6 L Hct 28.1 L MCV MCH 26 L MCHC RDW 20.7 H Plt Count Seg Neuts % (Manual) Lymphocytes % (Manual) Seg Neutrophils # Man Lymphocytes # (Manual) Monocytes # (Manual) PT INR D-Dimer ABG pH ABG pO2 114.2 H ABG HCO3 ABG O2 Saturation ABG Base Excess ABG Hemoglobin 9.1 L Oxyhemoglobin Sodium 134 L Potassium Chloride Carbon Dioxide 20 L BUN 34 H Creatinine Glucose POC Glucose Lactic Acid Calcium 7.1 L Phosphorus Magnesium AST ALT Alkaline Phosphatase Lactate Dehydrogenase Troponin T C-Reactive Protein NT-Pro-B Natriuret Pep Total Protein Albumin LDL Cholesterol Direct Vitamin B12 Crossmatch 11/22/21 11/22/21 11/22/21 07:07 07:07 23:54 WBC RBC 3.30 L Hgb 9.0 L Hct 28.5 L MCV MCH 27 L MCHC RDW 21.0 H Plt Count Seg Neuts % (Manual) Lymphocytes % (Manual) Seg Neutrophils # Man Lymphocytes # (Manual) Monocytes # (Manual) PT INR D-Dimer ABG pH ABG pO2 ABG HCO3 ABG O2 Saturation ABG Base Excess ABG Hemoglobin Oxyhemoglobin Sodium Potassium Chloride Carbon Dioxide BUN 32 H Creatinine Glucose 106 H POC Glucose 110 H Lactic Acid Calcium 7.5 L Phosphorus Magnesium AST ALT Alkaline Phosphatase Lactate Dehydrogenase Troponin T C-Reactive Protein NT-Pro-B Natriuret Pep Total Protein Albumin LDL Cholesterol Direct Vitamin B12 Crossmatch 11/23/21 11/23/21 11/23/21 04:38 04:38 06:01 WBC RBC 3.23 L Hgb 8.8 L Hct 28.0 L MCV MCH 27 L MCHC RDW 21.3 H Plt Count Seg Neuts % (Manual) Lymphocytes % (Manual) Seg Neutrophils # Man Lymphocytes # (Manual) Monocytes # (Manual) PT INR D-Dimer ABG pH ABG pO2 ABG HCO3 ABG O2 Saturation ABG Base Excess ABG Hemoglobin Oxyhemoglobin Sodium 136 L Potassium Chloride Carbon Dioxide 20 L BUN 32 H Creatinine Glucose 109 H POC Glucose 115 H Lactic Acid Calcium 7.7 L Phosphorus Magnesium AST ALT Alkaline Phosphatase Lactate Dehydrogenase Troponin T C-Reactive Protein NT-Pro-B Natriuret Pep Total Protein Albumin LDL Cholesterol Direct Vitamin B12 Crossmatch 11/23/21 11/24/21 11/24/21 11:40 00:03 04:13 WBC RBC 3.18 L Hgb 8.5 L Hct 27.5 L MCV MCH 27 L MCHC RDW 21.6 H Plt Count Seg Neuts % (Manual) Lymphocytes % (Manual) Seg Neutrophils # Man Lymphocytes # (Manual) Monocytes # (Manual) PT INR D-Dimer ABG pH ABG pO2 ABG HCO3 ABG O2 Saturation ABG Base Excess ABG Hemoglobin Oxyhemoglobin Sodium Potassium Chloride Carbon Dioxide BUN Creatinine Glucose POC Glucose 117 H 111 H Lactic Acid Calcium Phosphorus Magnesium AST ALT Alkaline Phosphatase Lactate Dehydrogenase Troponin T C-Reactive Protein NT-Pro-B Natriuret Pep Total Protein Albumin LDL Cholesterol Direct Vitamin B12 Crossmatch 11/24/21 11/24/21 11/24/21 04:13 05:30 11:10 WBC RBC Hgb Hct MCV MCH MCHC RDW Plt Count Seg Neuts % (Manual) Lymphocytes % (Manual) Seg Neutrophils # Man Lymphocytes # (Manual) Monocytes # (Manual) PT INR D-Dimer ABG pH ABG pO2 ABG HCO3 ABG O2 Saturation ABG Base Excess ABG Hemoglobin Oxyhemoglobin Sodium Potassium Chloride Carbon Dioxide BUN 31 H Creatinine Glucose 101 H POC Glucose 115 H 107 H Lactic Acid Calcium 7.7 L Phosphorus Magnesium AST ALT Alkaline Phosphatase Lactate Dehydrogenase Troponin T C-Reactive Protein NT-Pro-B Natriuret Pep Total Protein Albumin LDL Cholesterol Direct Vitamin B12 Crossmatch 11/24/21 11/24/21 11/25/21 16:34 17:57 05:12 WBC RBC 3.11 L Hgb 8.2 L Hct 26.6 L MCV MCH 26 L MCHC RDW 21.3 H Plt Count Seg Neuts % (Manual) Lymphocytes % (Manual) Seg Neutrophils # Man Lymphocytes # (Manual) Monocytes # (Manual) PT INR D-Dimer ABG pH ABG pO2 ABG HCO3 ABG O2 Saturation ABG Base Excess ABG Hemoglobin Oxyhemoglobin Sodium Potassium Chloride Carbon Dioxide BUN Creatinine Glucose POC Glucose 115 H 110 H Lactic Acid Calcium Phosphorus Magnesium AST ALT Alkaline Phosphatase Lactate Dehydrogenase Troponin T C-Reactive Protein NT-Pro-B Natriuret Pep Total Protein Albumin LDL Cholesterol Direct Vitamin B12 Crossmatch 11/25/21 11/25/21 11/26/21 05:12 11:20 05:00 WBC RBC 3.30 L Hgb 8.8 L Hct 28.2 L MCV MCH 27 L MCHC RDW 20.7 H Plt Count Seg Neuts % (Manual) Lymphocytes % (Manual) Seg Neutrophils # Man Lymphocytes # (Manual) Monocytes # (Manual) PT INR D-Dimer ABG pH ABG pO2 ABG HCO3 ABG O2 Saturation ABG Base Excess ABG Hemoglobin Oxyhemoglobin Sodium Potassium Chloride Carbon Dioxide BUN 32 H Creatinine Glucose 118 H POC Glucose 118 H Lactic Acid Calcium 8.2 L Phosphorus Magnesium AST ALT Alkaline Phosphatase Lactate Dehydrogenase Troponin T C-Reactive Protein NT-Pro-B Natriuret Pep Total Protein Albumin LDL Cholesterol Direct Vitamin B12 Crossmatch 11/26/21 11/26/21 11/26/21 05:00 05:00 05:44 WBC RBC Hgb Hct MCV MCH MCHC RDW Plt Count Seg Neuts % (Manual) Lymphocytes % (Manual) Seg Neutrophils # Man Lymphocytes # (Manual) Monocytes # (Manual) PT 16.9 H INR 1.24 H D-Dimer ABG pH ABG pO2 ABG HCO3 ABG O2 Saturation ABG Base Excess ABG Hemoglobin Oxyhemoglobin Sodium Potassium Chloride Carbon Dioxide BUN 31 H Creatinine Glucose 104 H POC Glucose 110 H Lactic Acid Calcium 7.9 L Phosphorus Magnesium AST ALT Alkaline Phosphatase Lactate Dehydrogenase Troponin T C-Reactive Protein NT-Pro-B Natriuret Pep Total Protein Albumin LDL Cholesterol Direct Vitamin B12 Crossmatch 11/26/21 11/27/21 11/27/21 23:55 07:40 07:40 WBC RBC 3.18 L Hgb 8.5 L Hct 27.0 L MCV MCH 27 L MCHC RDW 21.2 H Plt Count Seg Neuts % (Manual) Lymphocytes % (Manual) Seg Neutrophils # Man Lymphocytes # (Manual) Monocytes # (Manual) PT INR D-Dimer ABG pH ABG pO2 ABG HCO3 ABG O2 Saturation ABG Base Excess ABG Hemoglobin Oxyhemoglobin Sodium Potassium Chloride Carbon Dioxide BUN 27 H Creatinine Glucose 112 H POC Glucose 63 L Lactic Acid Calcium 7.6 L Phosphorus Magnesium AST ALT Alkaline Phosphatase Lactate Dehydrogenase Troponin T C-Reactive Protein NT-Pro-B Natriuret Pep Total Protein Albumin LDL Cholesterol Direct Vitamin B12 Crossmatch 11/27/21 11/27/21 11/27/21 12:04 13:40 13:40 WBC RBC 3.31 L Hgb 8.7 L Hct 28.0 L MCV MCH 26 L MCHC RDW 20.7 H Plt Count Seg Neuts % (Manual) Lymphocytes % (Manual) Seg Neutrophils # Man Lymphocytes # (Manual) Monocytes # (Manual) PT INR D-Dimer ABG pH ABG pO2 ABG HCO3 ABG O2 Saturation ABG Base Excess ABG Hemoglobin Oxyhemoglobin Sodium 136 L Potassium Chloride Carbon Dioxide BUN 25 H Creatinine Glucose 127 H POC Glucose 109 H Lactic Acid Calcium 7.6 L Phosphorus Magnesium 1.40 L AST ALT Alkaline Phosphatase Lactate Dehydrogenase Troponin T C-Reactive Protein NT-Pro-B Natriuret Pep Total Protein Albumin LDL Cholesterol Direct Vitamin B12 Crossmatch 11/27/21 11/27/21 11/28/21 17:44 23:33 12:20 WBC RBC Hgb Hct MCV MCH MCHC RDW Plt Count Seg Neuts % (Manual) Lymphocytes % (Manual) Seg Neutrophils # Man Lymphocytes # (Manual) Monocytes # (Manual) PT INR D-Dimer ABG pH ABG pO2 ABG HCO3 ABG O2 Saturation ABG Base Excess ABG Hemoglobin Oxyhemoglobin Sodium Potassium Chloride Carbon Dioxide BUN Creatinine Glucose POC Glucose 107 H 108 H 114 H Lactic Acid Calcium Phosphorus Magnesium AST ALT Alkaline Phosphatase Lactate Dehydrogenase Troponin T C-Reactive Protein NT-Pro-B Natriuret Pep Total Protein Albumin LDL Cholesterol Direct Vitamin B12 Crossmatch 11/29/21 11/29/21 11/29/21 00:09 03:20 03:20 WBC RBC 3.05 L Hgb 8.2 L Hct 25.8 L MCV MCH 27 L MCHC RDW 20.9 H Plt Count Seg Neuts % (Manual) Lymphocytes % (Manual) Seg Neutrophils # Man Lymphocytes # (Manual) Monocytes # (Manual) PT INR D-Dimer ABG pH ABG pO2 ABG HCO3 ABG O2 Saturation ABG Base Excess ABG Hemoglobin Oxyhemoglobin Sodium 133 L Potassium Chloride Carbon Dioxide BUN 24 H Creatinine Glucose 137 H POC Glucose 134 H Lactic Acid Calcium 7.4 L Phosphorus Magnesium AST ALT Alkaline Phosphatase Lactate Dehydrogenase Troponin T C-Reactive Protein NT-Pro-B Natriuret Pep Total Protein Albumin LDL Cholesterol Direct Vitamin B12 Crossmatch 11/29/21 11/29/21 11/29/21 05:38 11:39 17:11 WBC RBC Hgb Hct MCV MCH MCHC RDW Plt Count Seg Neuts % (Manual) Lymphocytes % (Manual) Seg Neutrophils # Man Lymphocytes # (Manual) Monocytes # (Manual) PT INR D-Dimer ABG pH ABG pO2 ABG HCO3 ABG O2 Saturation ABG Base Excess ABG Hemoglobin Oxyhemoglobin Sodium Potassium Chloride Carbon Dioxide BUN Creatinine Glucose POC Glucose 117 H 143 H 124 H Lactic Acid Calcium Phosphorus Magnesium AST ALT Alkaline Phosphatase Lactate Dehydrogenase Troponin T C-Reactive Protein NT-Pro-B Natriuret Pep Total Protein Albumin LDL Cholesterol Direct Vitamin B12 Crossmatch 11/29/21 11/30/21 11/30/21 20:15 05:40 05:40 WBC 12.6 H RBC 3.41 L Hgb 9.1 L Hct 28.9 L MCV MCH 27 L MCHC RDW 20.4 H Plt Count Seg Neuts % (Manual) Lymphocytes % (Manual) Seg Neutrophils # Man Lymphocytes # (Manual) Monocytes # (Manual) PT INR D-Dimer ABG pH ABG pO2 ABG HCO3 ABG O2 Saturation ABG Base Excess ABG Hemoglobin Oxyhemoglobin Sodium Potassium Chloride Carbon Dioxide BUN 24 H Creatinine Glucose 131 H POC Glucose Lactic Acid Calcium 7.6 L Phosphorus Magnesium AST ALT Alkaline Phosphatase Lactate Dehydrogenase Troponin T 0.045 H C-Reactive Protein NT-Pro-B Natriuret Pep Total Protein Albumin LDL Cholesterol Direct 25 L Vitamin B12 Crossmatch 11/30/21 11/30/21 12/01/21 11:29 16:51 05:00 WBC RBC 2.97 L Hgb 8.0 L Hct 25.0 L MCV MCH 27 L MCHC RDW 20.8 H Plt Count Seg Neuts % (Manual) Lymphocytes % (Manual) Seg Neutrophils # Man Lymphocytes # (Manual) Monocytes # (Manual) PT INR D-Dimer ABG pH ABG pO2 ABG HCO3 ABG O2 Saturation ABG Base Excess ABG Hemoglobin Oxyhemoglobin Sodium Potassium Chloride Carbon Dioxide BUN Creatinine Glucose POC Glucose 123 H 114 H Lactic Acid Calcium Phosphorus Magnesium AST ALT Alkaline Phosphatase Lactate Dehydrogenase Troponin T C-Reactive Protein NT-Pro-B Natriuret Pep Total Protein Albumin LDL Cholesterol Direct Vitamin B12 Crossmatch 12/01/21 12/01/21 12/01/21 05:00 05:25 11:54 WBC RBC Hgb Hct MCV MCH MCHC RDW Plt Count Seg Neuts % (Manual) Lymphocytes % (Manual) Seg Neutrophils # Man Lymphocytes # (Manual) Monocytes # (Manual) PT INR D-Dimer ABG pH ABG pO2 ABG HCO3 ABG O2 Saturation ABG Base Excess ABG Hemoglobin Oxyhemoglobin Sodium 136 L Potassium Chloride Carbon Dioxide BUN 24 H Creatinine Glucose 117 H POC Glucose 108 H 107 H Lactic Acid Calcium 7.5 L Phosphorus Magnesium 1.60 L AST ALT Alkaline Phosphatase Lactate Dehydrogenase Troponin T C-Reactive Protein NT-Pro-B Natriuret Pep Total Protein Albumin LDL Cholesterol Direct Vitamin B12 Crossmatch 12/01/21 12/02/21 12/02/21 17:40 00:07 04:20 WBC RBC 2.92 L Hgb 7.7 L Hct 24.3 L MCV MCH 26 L MCHC RDW 20.5 H Plt Count Seg Neuts % (Manual) Lymphocytes % (Manual) Seg Neutrophils # Man Lymphocytes # (Manual) Monocytes # (Manual) PT INR D-Dimer ABG pH ABG pO2 ABG HCO3 ABG O2 Saturation ABG Base Excess ABG Hemoglobin Oxyhemoglobin Sodium Potassium Chloride Carbon Dioxide BUN Creatinine Glucose POC Glucose 123 H 110 H Lactic Acid Calcium Phosphorus Magnesium AST ALT Alkaline Phosphatase Lactate Dehydrogenase Troponin T C-Reactive Protein NT-Pro-B Natriuret Pep Total Protein Albumin LDL Cholesterol Direct Vitamin B12 Crossmatch 12/02/21 12/02/21 12/02/21 04:20 11:17 18:20 WBC RBC Hgb Hct MCV MCH MCHC RDW Plt Count Seg Neuts % (Manual) Lymphocytes % (Manual) Seg Neutrophils # Man Lymphocytes # (Manual) Monocytes # (Manual) PT INR D-Dimer ABG pH ABG pO2 ABG HCO3 ABG O2 Saturation ABG Base Excess ABG Hemoglobin Oxyhemoglobin Sodium 135 L Potassium Chloride Carbon Dioxide BUN 26 H Creatinine Glucose 121 H POC Glucose 117 H 113 H Lactic Acid Calcium 7.4 L Phosphorus Magnesium AST ALT Alkaline Phosphatase Lactate Dehydrogenase Troponin T C-Reactive Protein NT-Pro-B Natriuret Pep Total Protein Albumin LDL Cholesterol Direct Vitamin B12 Crossmatch 12/03/21 12/03/21 12/03/21 00:12 04:00 04:00 WBC RBC 2.99 L Hgb 7.8 L Hct 24.6 L MCV MCH 26 L MCHC RDW 20.2 H Plt Count Seg Neuts % (Manual) Lymphocytes % (Manual) Seg Neutrophils # Man Lymphocytes # (Manual) Monocytes # (Manual) PT INR D-Dimer ABG pH ABG pO2 ABG HCO3 ABG O2 Saturation ABG Base Excess ABG Hemoglobin Oxyhemoglobin Sodium 136 L Potassium Chloride Carbon Dioxide BUN 27 H Creatinine Glucose 133 H POC Glucose 121 H Lactic Acid Calcium 7.5 L Phosphorus Magnesium AST ALT Alkaline Phosphatase Lactate Dehydrogenase Troponin T C-Reactive Protein NT-Pro-B Natriuret Pep Total Protein Albumin LDL Cholesterol Direct Vitamin B12 Crossmatch 12/03/21 12/03/21 12/03/21 06:30 11:13 16:00 WBC RBC Hgb Hct MCV MCH MCHC RDW Plt Count Seg Neuts % (Manual) Lymphocytes % (Manual) Seg Neutrophils # Man Lymphocytes # (Manual) Monocytes # (Manual) PT INR D-Dimer ABG pH ABG pO2 ABG HCO3 ABG O2 Saturation ABG Base Excess ABG Hemoglobin Oxyhemoglobin Sodium Potassium Chloride Carbon Dioxide BUN Creatinine Glucose POC Glucose 129 H 125 H 125 H Lactic Acid Calcium Phosphorus Magnesium AST ALT Alkaline Phosphatase Lactate Dehydrogenase Troponin T C-Reactive Protein NT-Pro-B Natriuret Pep Total Protein Albumin LDL Cholesterol Direct Vitamin B12 Crossmatch 12/03/21 12/04/21 12/04/21 23:32 04:00 05:36 WBC RBC Hgb Hct MCV MCH MCHC RDW Plt Count Seg Neuts % (Manual) Lymphocytes % (Manual) Seg Neutrophils # Man Lymphocytes # (Manual) Monocytes # (Manual) PT INR D-Dimer ABG pH ABG pO2 ABG HCO3 ABG O2 Saturation ABG Base Excess ABG Hemoglobin Oxyhemoglobin Sodium Potassium 3.5 L Chloride Carbon Dioxide BUN 26 H Creatinine 0.5 L Glucose 151 H POC Glucose 133 H 142 H Lactic Acid Calcium 8.3 L Phosphorus Magnesium AST ALT Alkaline Phosphatase Lactate Dehydrogenase Troponin T C-Reactive Protein NT-Pro-B Natriuret Pep Total Protein Albumin LDL Cholesterol Direct Vitamin B12 Crossmatch 12/04/21 12/04/21 12/05/21 11:24 15:58 04:36 WBC RBC Hgb Hct MCV MCH MCHC RDW Plt Count Seg Neuts % (Manual) Lymphocytes % (Manual) Seg Neutrophils # Man Lymphocytes # (Manual) Monocytes # (Manual) PT INR D-Dimer ABG pH ABG pO2 ABG HCO3 ABG O2 Saturation ABG Base Excess ABG Hemoglobin Oxyhemoglobin Sodium Potassium Chloride Carbon Dioxide BUN 21 H Creatinine 0.5 L Glucose 119 H POC Glucose 130 H 111 H Lactic Acid Calcium 8.3 L Phosphorus Magnesium AST ALT Alkaline Phosphatase Lactate Dehydrogenase Troponin T C-Reactive Protein NT-Pro-B Natriuret Pep Total Protein Albumin LDL Cholesterol Direct Vitamin B12 Crossmatch 12/05/21 12/05/21 12/05/21 05:15 10:40 11:12 WBC RBC 2.98 L Hgb 8.1 L Hct 24.6 L MCV MCH 27 L MCHC RDW 20.8 H Plt Count Seg Neuts % (Manual) Lymphocytes % (Manual) Seg Neutrophils # Man Lymphocytes # (Manual) Monocytes # (Manual) PT INR D-Dimer ABG pH ABG pO2 ABG HCO3 ABG O2 Saturation ABG Base Excess ABG Hemoglobin Oxyhemoglobin Sodium Potassium Chloride Carbon Dioxide BUN Creatinine Glucose POC Glucose 107 H 110 H Lactic Acid Calcium Phosphorus Magnesium AST ALT Alkaline Phosphatase Lactate Dehydrogenase Troponin T C-Reactive Protein NT-Pro-B Natriuret Pep Total Protein Albumin LDL Cholesterol Direct Vitamin B12 Crossmatch 12/05/21 12/06/21 12/06/21 23:39 04:25 04:25 WBC RBC 2.95 L Hgb 7.9 L Hct 24.7 L MCV MCH 27 L MCHC RDW 20.9 H Plt Count Seg Neuts % (Manual) Lymphocytes % (Manual) Seg Neutrophils # Man Lymphocytes # (Manual) Monocytes # (Manual) PT INR D-Dimer ABG pH ABG pO2 ABG HCO3 ABG O2 Saturation ABG Base Excess ABG Hemoglobin Oxyhemoglobin Sodium Potassium Chloride Carbon Dioxide BUN 22 H Creatinine 0.5 L Glucose 136 H POC Glucose 118 H Lactic Acid Calcium 8.2 L Phosphorus Magnesium AST ALT Alkaline Phosphatase Lactate Dehydrogenase Troponin T C-Reactive Protein NT-Pro-B Natriuret Pep Total Protein Albumin LDL Cholesterol Direct Vitamin B12 Crossmatch 12/06/21 12/06/21 12/07/21 05:28 11:27 04:00 WBC RBC Hgb 7.2 L Hct 21.8 L MCV MCH MCHC RDW Plt Count Seg Neuts % (Manual) Lymphocytes % (Manual) Seg Neutrophils # Man Lymphocytes # (Manual) Monocytes # (Manual) PT INR D-Dimer ABG pH ABG pO2 ABG HCO3 ABG O2 Saturation ABG Base Excess ABG Hemoglobin Oxyhemoglobin Sodium Potassium Chloride Carbon Dioxide BUN Creatinine Glucose POC Glucose 142 H 126 H Lactic Acid Calcium Phosphorus Magnesium AST ALT Alkaline Phosphatase Lactate Dehydrogenase Troponin T C-Reactive Protein NT-Pro-B Natriuret Pep Total Protein Albumin LDL Cholesterol Direct Vitamin B12 Crossmatch 12/07/21 12/07/21 12/07/21 04:00 05:30 11:12 WBC RBC Hgb Hct MCV MCH MCHC RDW Plt Count Seg Neuts % (Manual) Lymphocytes % (Manual) Seg Neutrophils # Man Lymphocytes # (Manual) Monocytes # (Manual) PT INR D-Dimer ABG pH ABG pO2 ABG HCO3 ABG O2 Saturation ABG Base Excess ABG Hemoglobin Oxyhemoglobin Sodium Potassium Chloride Carbon Dioxide BUN 22 H Creatinine Glucose 119 H POC Glucose 121 H 124 H Lactic Acid Calcium 8.0 L Phosphorus Magnesium AST ALT Alkaline Phosphatase Lactate Dehydrogenase Troponin T C-Reactive Protein NT-Pro-B Natriuret Pep Total Protein Albumin LDL Cholesterol Direct Vitamin B12 Crossmatch Allied health notes reviewed: RT
--- NOTE | 2021-12-07 15:10 | Progress Note ---
Assessment and Plan Assessment and plan: This is a 81-year-old female with known history of diabetes mellitus, hypertension, PPM, and arthritis admitted for sepsis and acute hypoxia respiratory failure 2/2 bilateral pneumonia requiring intubation and ventilatory support Hospital Course to date: 11/04/2021: Empiric therapy with iv levaquin/vancomycin. COVID PCR pending. Will consult ID. PCCM consulted, will follow recs. Hypotensive this AM, ordered bolus and fluids at 150 cc/hr. May require pressor support if bp does not improve. 11/05/2021: GBS on bcx +, currently on rocephin IV. Currently on bipap due to respiratory distress overnight. Worsening BL opacities on CXR. May be volume overload vs pneumonia. Unfortunately bp too low for lasix at this point. WIll continue levophed and bipap. Once able to tolerate, may do trial of albumin/lasix. Call attempt made to Niraj, no response. Will try again tomorrow to update. 11/06/2021: Decompensated overnight requiring intubation. CXR shows worsening int erstitial infiltrates. Currenlty on dopamine, levophed, vasopressin. PICC line ordered. Advised RN to place gamble for I/O monitoring. Would benefit from diuresis but very volume overloaded. Prognosis guarded 11/08: Off sedation this am, remains unresponsive only grimace to pain. Hold all sedatives agents for now, patient is off pressors this am. Hypernatremia from today's lab- D5W X1bag, and low K repleted, repeat lab in the am. Severe constipation also noted from KUB, BR added. 11/09: Sudden SPO2 drop in the 60s this am. Patient was manually bagged and deep suctioned. Patient is currently stable on the vent, repeat CXR with no significant change. D/w CCM Mucomyst and brochodilator added. Patient mentation is unchanged, continue to hold off on sedative agents. Neurology consulted. 11/10: Acute DVT noted on bilateral lower extremity Doppler ultrasound therefore she was started on Lovenox treatment dose. Failed SBT. Hypernatremia and hyperchloremia noted, free water flush adjusted. 11/11: Patient noted to be febrile with increasing of the cytosis, UA/BC sent and CXR ordered. ID escalated antibiotics to cefepime. CXR demonstrated mucous plug, bedside bronchoscopy was performed and O ETT was changed over bougie from 6 cm to 7.5. Patient was noted to have a pneumothorax postprocedure and chest tube was placed. Family updated by [facility]. Free water flush increased and will add Jaswant supplementation. 11/12: Patient not noted to follow commands, hypernatremia worsen/persist, incr easing free water flush, potassium and magnesium and phosphorus repleted. Hemoglobin noted to be 7.1/24.5 from 7.03/12 yesterday. We will continue to trend and monitor. Vent changes per [facility]. Repeat CXR showed no residual pneumothorax. Consider waterseal tomorrow. Given persistent leukocytosis a ntibiotics escalated to cefepime per ID. 11/13: Remains on cefepime and vancomycin, vent changes per [facility]. Anemia noted and given 1 unit PRBC. And beta-charleen held in setting of Levophed drip infusi ng. Remains on fentanyl drip. 11/14: Patient put on CPAP trial by [facility], will continue chest tube until after extubation. Will rest on assist control. CT brain was cancelled by motor grader rough grade and reordered. 11/15: Patient removed chest tube overnight. Will obtain cxr. remains on low dose levo. CTH completed with no acute findings. RT to place on CPAP. 11/16: Hypernatremia/hyperchloremia noted on the increase of day water flushes. Anemia noted and ordered PRBC. asked RT to place on cpap but not done yet 11/17: Patient remains on the vent, awake and following commands. H&H stable s/p 2units PRBCs. GI on consult, no intervention at this time. Will continue protonix gtt and serial H&H Q6hrs. Keep patient NPO for now, D5w added for hypernatremia and NPO status. Plan for IVC filter placement today by Vascular. 11/18: Patient is s/p IVC filter. H&H continue to trend down, hbg 6.1 this am, 1 unit of PRBCs ordered. Plan for possible EGD today by GI. Keep patient NPO, continue PPI drip and serial H&H Q6hrs. Electrolytes repleted, repeat lab in the am 11/19: S/p EGD- larger duodenal ulcer noted, see operative note. GI recommendations noted also noted. H&H stable this am. Keep patient on protonix gtt for now. Will keep patient NPO, continue IVF and serial H&H for now. Electrolytes repleted, repeat labs in the am 11/20: Very agitated and restless this am, fentanyl gtt resumed. Patient remains on protonix gtt, H&H remains stable. Will switch protonix gtt to IV BID, continue carafate and okay to resume meds at this time. Will F/u with GI to see if TF can be resumed. Gamble was reinserted overnight for retention. Electrolytes repleted, repeat in the am. Plan for possible PST today for possible extubation per [facility]. 11/21: Patient is now on seroquel and patient's home buspar resumed. Patient more calm this morning, fentanyl gtt is off. H&H remains stable and patient is tolerating TF. Patient had a runs of Vtach/PVCs this am, BB added per Cardio. Continue daily PS and wean trial for possible extubation. 11/22: Back on fentanyl gtt overnight , RASS o to -1, following commands. Patient failed PST this am due to increased work of breathing and low SPO2, ABG pending. Patient is also with worsen pitting edema, lasix is still on hold. Will discuss with cardio and CCM to possibly resume lasix. 11/23: MARIA DEL CARMEN overnight. Patient failed PST again this am. Per CCM plan for possible trach and PEG, hold off on IV lasix for now. General surgery consulted and family is aware of possible Trach and PEG. 11/24: Trach/PEG pending this week, continue SBT/SAT as tolerated. No acute events reported overnight. 11/25: Patient was n.p.o. overnight and will remain n.p.o. tonight for trach/PEG tomorrow morning. She failed to support trial again. KUB obtained due to distended belly. 11/26: Patient scheduled for tracheostomy and PEG tube placement today, has been n.p.o. since midnight. No acute events reported overnight. [facility] ordered simethicone scheduled. 11/27: No acute events reported overnight, patient received trach/PEG yesterday. Has been on feedings since last night. Still awaiting LTAC placement. 11/28: Patient magnesium repleted, repeat a.m. labs, SBT 11/29: Patient complains of chest pain but ECG obtained which showed no acute findings, ordered troponin. Patient failed CPAP yesterday and was trialed again today. levophed was restarted but will aggressively wean 11/30: Patient failed SBT. Continue supportive care. Started gabapentin today 12/01: MARIA DEL CARMEN overnight. Continue daily PST. Case management to arrange possible placement 12/02: Report of dark stools overnight, patient is hemodynamically stable. H&H stable, patient is on PPI. Will continue to trend H&H. Continue daily PST as t olerated. Awaiting LTAC vs SNF placement. 12/03: Hypotensive overnight, requiring low dose pressors. S/p X3 days of gentle diurese. Will continue to monitor, wean off pressors as tolerated for MAP of 65. Patient Failed PST yesterday, case management to follow up with insurance for possible LTAC placement. Continue daily PST as tolerated. PT eval and treat ordered. 12/04: Increased agitation and anxiety overnight, remains on buspar and seroquel, trazadone added to promote rest. Patient is now working with PT, keep patient engage and awake during the day so she can rest at night. No BM for over 5 days, BR was adjusted. Patient did not tolerate PST again yesterday, continue daily PST as tolerated. Continue to titrate pressor for MAP above 65. Pending possible LTAC placement, case management to arrange. 12/05: Still not getting much rest overnight, will add melatonin for sleep. Continue to engage patient during the day and promote rest at night. TF was held due to concern for possible bleeding, H&H remains stable and stools normal this am. Resume TF and continue PPI and carafate. Remains on low dose levophed, titrate as tolerated. Continue daily PST. Possible LTAC placement, awaiting a pproval. 12/06: MARIA DEL CARMEN overnight. Patient rested overnight. Continue supportive measures. Daily PST as tolerated. Awaiting possible LTAC placement 12/07: MARIA DEL CARMEN overnight. Plan for Tpiece trial today. Continue current supportive measures. Possible LTAC placement Assessment and Plan #Septic Shock POA #Bilateral Pneumonia #Bacteremia - Presented with fevers, leukocytosis, and hypotension - COVID PCR negative - 11/04 Bcult with 3/4 group B strep bacteremia - Repeat Bculture NGTD - 11/04 2D Echo with no evidence of vegetation - ID on consult, appreciate recommendations - Patient completed IV Abx course - F/u on culture data - Trend CBC #Acute Hypoxic Respiratory Failure 11/19 #Bilateral Pleural Effusion #Right Pneumothorax-resolved #Bilateral Pneumonia - COVID PCR negative - CXR shows Bilateral opacities, may be volume overloaded - CCM consulted, appreciate recommendations - Intubated on 11/06, ETT exchanged on 11/11 - 11/11 Bronchoscopy--Complicated by spontaneous pneumothorax - 11/11 S/p chest tube placement for right pneumothorax, removed by patient on 11/15 - 11/26 s/p Tracheostomy and PEGtube placement - This am Vent Setting:CPAP-25%,5 PS-15 - Continue Nebs treatment - Continue daily PST as tolerated - VAP bundle addressed - Aspiration precaution HOB above 30 - ABG and CXR per CCM - Continue SPO2 monitoring for SPO2 goal above 92% #CHF- EF 30-35% with PPM #Hypotension #Septic Kristian-resolved - SR on the monitor, HR 70-90s - 11/04 Echo-EF 30-35% - Cardiology on consult - Continue beta-charleen - Not on aspirin due to allergy - Statins resumed - Continue blood pressure monitor per protocol - Maintain MAP above 65 #Acute Blood Loss #Acute GI Bleed #Acute Microcytic Anemia - Report of melena &black tarry stools - s/p a total of 5units of PRBCs since admit - H&H remains stable post EGD - GI on consult - 11/18 EGD- Large cratered ulcer in the posterior duodenal bulb about 2 cm in diameter. Visible vessel present. Mild active oozing from the ulcer bed. A total of 3 injections were performed around the ulcer for a total of 2.5 cc of dilute epinephrine and hemostasis was obtained.--> See full report - Continue PPI and Carafate - Patient is tolerating TF - Continue to trend CBC - Transfuse for H&H less than 7 - Hold AC for now #Hypokalemia- resolved #Hyponatremia-improved - Strict intake and output - Continue to monitor and replace electrolytes as needed - Trend BMP,mag, & phosp #Urinary Retention - Gamble reinserted on 11/19 for retention - Keep gamble for now #Acute DVT in RLE - BLE doppler + Acute DVT in the right external iliac vein, common femoral vein, and superior aspect of femoral vein - Was on Therapeutic Lovenox- held to due GI Bleed - 11/17 s/p IVC filter placement by Vascular Surg #Agitation #Acute Encephalopathy-Resolved - Awake and following commands - Continue Buspar and seroquel - CT head noted - Neurology consulted - PRN analgesia for pain management #Transaminitis/Shock Liver - Probably due to bacteria/spetic shock - Continue to Trend LFTs #Endo: h/o DM and hypothyroidism - Continue home Synthroid - Accu-Cheks every 6 - Avoid hypoglycemia The high probability of a clinically significant, sudden or life threatening deterioration of the [multi] system(s) required my full and direct attention, intervention and personal management. The aggregate critical care time was [60] minutes. This time is in addition to time spent performing reported procedures but includes the following: [x] Data Review and interpretation [x] Patient assessment and monitoring of vital signs [x] Documentation [x] Medication orders and management Disposition Plan: ICU Total Time Spent with Patient (Minutes): 60 History Interval history: Patient seen and examined at the bedside. Remains stable on the vent. Off pressors this am. MARIA DEL CARMEN overnight Hospitalist Physical - Constitutional Vitals: Temp Pulse Resp BP Pulse Ox 98.0 F 78 14 134/45 95 12/07/21 11:27 12/07/21 12:48 12/07/21 12:15 12/07/21 12:48 12/07/21 12:48 General appearance: Present: no acute distress, other (Trah and on the vent) - EENT Eyes: Present: PERRL, EOM intact ENT: hearing intact - Neck Neck: Present: normal ROM - Respiratory Respiratory effort: accessory muscle use Respiratory: bilateral: rhonchi - Cardiovascular Rhythm: regular Heart Sounds: Present: S1 & S2 - Extremities Extremities: no ischemia, pulses intact, pulses symmetrical Extremity abnormal: edema - Peripheral Assessment Generalized Edema Type: Non-pitting Edema Degree: 2+ Capillary Refill: < 3 seconds Skin Temperature: Warm Peripheral Pulses: within normal limits - Abdominal General gastrointestinal: soft, non-distended, normal bowel sounds - Integumentary Integumentary: Present: warm, dry - Psychiatric Psychiatric: appropriate mood/affect, cooperative - Neurologic Neurologic: moves all extremities, other (Awake and appropriate, following commands) - Allied Health Allied health notes reviewed: nursing HEART Score - HEART Score Troponin: Troponin T 0.045 ng/mL (0.00-0.029) H 11/29/21 20:15 Results - Labs CBC & Chem 7: 12/07/21 04:00 12/07/21 04:00 Labs: Laboratory Last Values WBC 8.1 K/mm3 (4.5-11.0) 12/06/21 04:25 RBC 2.95 M/mm3 (3.65-5.03) L 12/06/21 04:25 Hgb 7.2 gm/dl (10.1-14.3) L 12/07/21 04:00 Hct 21.8 % (30.3-42.9) L 12/07/21 04:00 MCV 84 fl (79-97) 12/06/21 04:25 MCH 27 pg (28-32) L 12/06/21 04:25 MCHC 32 % (30-34) 12/06/21 04:25 RDW 20.9 % (13.2-15.2) H 12/06/21 04:25 Plt Count 207 K/mm3 (140-440) 12/06/21 04:25 Add Manual Diff Complete 11/16/21 15:25 Total Counted 100 11/16/21 15:25 Seg Neutrophils % [employer] 11/06/21 15:50 Seg Neuts % (Manual) 87.0 % (40.0-70.0) H 11/16/21 15:25 Band Neutrophils % 0 % 11/16/21 15:25 Lymphocytes % (Manual) 8.0 % (13.4-35.0) L 11/16/21 15:25 Reactive Lymphs % (Man) 0 % 11/16/21 15:25 Monocytes % (Manual) 5.0 % (0.0-7.3) 11/16/21 15:25 Eosinophils % (Manual) 0 % (0.0-4.3) 11/16/21 15:25 Basophils % (Manual) 0 % (0.0-1.8) 11/16/21 15:25 Metamyelocytes % 0 % 11/16/21 15:25 Myelocytes % 0 % 11/16/21 15:25 Promyelocytes % 0 % 11/16/21 15:25 Blast Cells % 0 % 11/16/21 15:25 Nucleated RBC % Not Reportable 11/16/21 15:25 Seg Neutrophils # Man 15.0 K/mm3 (1.8-7.7) H 11/16/21 15:25 Band Neutrophils # 0.0 K/mm3 11/16/21 15:25 Lymphocytes # (Manual) 1.4 K/mm3 (1.2-5.4) 11/16/21 15:25 Abs React Lymphs (Man) 0.0 K/mm3 11/16/21 15:25 Monocytes # (Manual) 0.9 K/mm3 (0.0-0.8) H 11/16/21 15:25 Eosinophils # (Manual) 0.0 K/mm3 (0.0-0.4) 11/16/21 15:25 Basophils # (Manual) 0.0 K/mm3 (0.0-0.1) 11/16/21 15:25 Metamyelocytes # 0.0 K/mm3 11/16/21 15:25 Myelocytes # 0.0 K/mm3 11/16/21 15:25 Promyelocytes # 0.0 K/mm3 11/16/21 15:25 Blast Cells # 0.0 K/mm3 11/16/21 15:25 WBC Morphology Not Reportable 11/16/21 15:25 Hypersegmented Neuts Not Reportable 11/16/21 15:25 Hyposegmented Neuts Not Reportable 11/16/21 15:25 Hypogranular Neuts Not Reportable 11/16/21 15:25 Smudge Cells Not Reportable 11/16/21 15:25 Toxic Granulation Not Reportable 11/16/21 15:25 Toxic Vacuolation Not Reportable 11/16/21 15:25 Dohle Bodies Not Reportable 11/16/21 15:25 Pelger-Huet Anomaly Not Reportable 11/16/21 15:25 Irina Rods Not Reportable 11/16/21 15:25 Platelet Estimate Consistent w auto 11/16/21 15:25 Clumped Platelets Rare 11/16/21 15:25 Plt Clumps, EDTA Not Reportable 11/16/21 15:25 Large Platelets Not Reportable 11/16/21 15:25 Giant Platelets Not Reportable 11/16/21 15:25 Platelet Satelliting Not Reportable 11/16/21 15:25 Plt Morphology Comment Not Reportable 11/16/21 15:25 RBC Morphology Not Reportable 11/16/21 15:25 Dimorphic RBCs Not Reportable 11/16/21 15:25 Polychromasia Not Reportable 11/16/21 15:25 Hypochromasia 2+ 11/16/21 15:25 Poikilocytosis Not Reportable 11/16/21 15:25 Anisocytosis 2+ 11/16/21 15:25 Microcytosis Not Reportable 11/16/21 15:25 Macrocytosis Not Reportable 11/16/21 15:25 Spherocytes Not Reportable 11/16/21 15:25 Pappenheimer Bodies Not Reportable 11/16/21 15:25 Sickle Cells Not Reportable 11/16/21 15:25 Target Cells 2+ 11/16/21 15:25 Tear Drop Cells Not Reportable 11/16/21 15:25 Ovalocytes Not Reportable 11/16/21 15:25 Helmet Cells Not Reportable 11/16/21 15:25 [place] Bodies Not Reportable 11/16/21 15:25 [place] Rings Not Reportable 11/16/21 15:25 [place] Cells Not Reportable 11/16/21 15:25 Bite Cells Not Reportable 11/16/21 15:25 Crenated Cell Not Reportable 11/16/21 15:25 Elliptocytes Not Reportable 11/16/21 15:25 Acanthocytes (Spur) Not Reportable 11/16/21 15:25 Rouleaux Not Reportable 11/16/21 15:25 Hemoglobin C Crystals Not Reportable 11/16/21 15:25 Schistocytes Not Reportable 11/16/21 15:25 Malaria parasites Not Reportable 11/16/21 15:25 Godfrey Bodies Not Reportable 11/16/21 15:25 Hem Pathologist Commnt No 11/16/21 15:25 PT 16.9 Sec. (12.2-14.9) H 11/26/21 05:00 INR 1.24 (0.87-1.13) H 11/26/21 05:00 APTT 29.2 Sec. (24.2-36.6) 11/26/21 05:00 D-Dimer 2655.00 ng/mlDDU (0-234) H 11/11/21 04:28 ABG pH 7.449 pH Units (7.350-7.450) 11/21/21 16:00 ABG pCO2 32.1 mm Hg 11/21/21 16:00 ABG pO2 114.2 mm Hg (80.0-90.0) H 11/21/21 16:00 ABG HCO3 21.8 mmol/L (20.0-26.0) 11/21/21 16:00 ABG O2 Saturation 98.3 % (95.0-99.0) 11/21/21 16:00 ABG O2 Content 12.5 (0.0-44) 11/21/21 16:00 ABG Base Excess -1.7 mmol/L (-2.0-3.0) 11/21/21 16:00 ABG Hemoglobin 9.1 gm/dl (12.0-16.0) L 11/21/21 16:00 ABG Carboxyhemoglobin 1.9 % (0.0-5.0) 11/21/21 16:00 ABG Methemoglobin 0.5 % (0.0-1.5) 11/21/21 16:00 Oxyhemoglobin 96.0 % (95.0-99.0) 11/21/21 16:00 FiO2 30 % 11/21/21 16:00 Sodium 140 mmol/L (137-145) 12/07/21 04:00 Potassium 3.9 mmol/L (3.6-5.0) 12/07/21 04:00 Chloride 102.0 mmol/L (98-107) 12/07/21 04:00 Carbon Dioxide 27 mmol/L (22-30) 12/07/21 04:00 Anion Gap 15 mmol/L 12/07/21 04:00 BUN 22 mg/dL (7-17) H 12/07/21 04:00 Creatinine 0.6 mg/dL (0.6-1.2) 12/07/21 04:00 Estimated GFR > 60 ml/min 12/07/21 04:00 BUN/Creatinine Ratio 37 % 12/07/21 04:00 Glucose 119 mg/dL (65-100) H 12/07/21 04:00 POC Glucose 124 mg/dL (70-105) H 12/07/21 11:12 Lactic Acid 3.70 mmol/L (0.7-2.0) H* 11/03/21 22:32 Calcium 8.0 mg/dL (8.4-10.2) L 12/07/21 04:00 Phosphorus 3.50 mg/dL (2.5-4.5) 12/07/21 04:00 Magnesium 1.70 mg/dL (1.7-2.3) 12/07/21 04:00 Ferritin 52.6 ng/mL (10.0-200.0) 11/05/21 06:11 Total Bilirubin 0.50 mg/dL (0.1-1.2) 11/17/21 05:56 Direct Bilirubin < 0.2 mg/dL (0-0.2) 11/11/21 04:28 Indirect Bilirubin 0.1 mg/dL 11/11/21 04:28 AST 36 units/L (5-40) 11/17/21 05:56 ALT 47 units/L (7-56) 11/17/21 05:56 Alkaline Phosphatase 107 units/L (35-129) 11/17/21 05:56 Ammonia 42.0 umol/L (25-60) 11/10/21 14:08 Lactate Dehydrogenase 187 units/L (91-180) H 11/05/21 06:11 Troponin T 0.045 ng/mL (0.00-0.029) H 11/29/21 20:15 C-Reactive Protein 22.20 mg/dL (0.00-1.30) H 11/05/21 06:11 NT-Pro-B Natriuret Pep 7895 pg/mL (0-900) H 11/03/21 22:32 Total Protein 5.1 g/dL (6.3-8.2) L 11/17/21 05:56 Albumin 2.2 g/dL (3.9-5) L 11/17/21 05:56 Albumin/Globulin Ratio 0.8 % 11/17/21 05:56 Triglycerides 59 mg/dL (2-149) 11/29/21 20:15 Cholesterol 74 mg/dL (50-199) 11/29/21 20:15 LDL Cholesterol Direct 25 mg/dL (50-130) L 11/29/21 20:15 HDL Cholesterol 41 mg/dL (40-59) 11/29/21 20:15 Cholesterol/HDL Ratio 1.80 % 11/29/21 20:15 Vitamin B12 1823 pg/mL (211-911) H 11/10/21 14:08 TSH 1.510 mlU/mL (0.270-4.200) 11/10/21 14:08 Urine Color Yellow (Yellow) 11/11/21 09:00 Urine Turbidity Slightly-cloudy (Clear) 11/11/21 09:00 Urine pH 5.0 (5.0-7.0) 11/11/21 09:00 Ur Specific [place] 1.009 (1.003-1.030) 11/11/21 09:00 Urine Protein <15 mg/dl mg/dL (Negative) 11/11/21 09:00 Urine Glucose (UA) Neg mg/dL (Negative) 11/11/21 09:00 Urine Ketones Neg mg/dL (Negative) 11/11/21 09:00 Urine Blood Mod (Negative) 11/11/21 09:00 Urine Nitrite Neg (Negative) 11/11/21 09:00 Urine Bilirubin Neg (Negative) 11/11/21 09:00 Urine Urobilinogen < 2.0 mg/dL (<2.0) 11/11/21 09:00 Ur Leukocyte Esterase Neg (Negative) 11/11/21 09:00 Urine WBC (Auto) < 1.0 /HPF (0.0-6.0) 11/11/21 09:00 Urine RBC (Auto) < 1.0 /HPF (0.0-6.0) 11/11/21 09:00 Coronavirus (PCR) Negative (Negative) 11/10/21 08:30 Blood Type O POSITIVE 11/18/21 10:45 Antibody Screen Negative 11/18/21 10:45 Crossmatch See Detail 11/18/21 10:45 Gamble/IV: Voiding Method Indwelling Catheter Active Medications - Current Medications Current Medications: Generic Name Dose Route Start Last Admin Trade Name Freq PRN Reason Stop Dose Admin Hydrocodone Bitart/Acetaminophen 1 each 11/21/21 10:00 12/07/21 14:19 Hydrocodone/Acetaminophen 10-325mg Tab FEEDTUBE 1 each TID YOSSI Administration Lipase/Protease/Amylase 1 each 11/08/21 11:09 Lipase 10,500/Protease 25,000/Amylase 43,750 (Units) Dr Lema FEEDTUBE PRN PRN For Clogged Feeding Tube Buspirone HCl 7.5 mg 11/17/21 22:00 12/07/21 09:24 Buspirone 5 Mg Tab PO 7.5 mg BID YOSSI Administration Dextrose 0 ml 11/10/21 10:52 11/21/21 16:27 Dextrose 10% *Hypoglycemia IV 50 ml PRN PRN Administration Hypoglycemia Docusate Sodium 100 mg 12/04/21 11:00 12/07/21 09:28 Docusate Sodium 100 Mg/10 Ml Oral Liqd PO Not Given BID YOSSI Fentanyl 1 applic 11/17/21 13:00 12/05/21 09:48 Fentanyl 25 Mcg/Hr Patch 72hr TD 1 applic Q3D YOSSI Administration Gabapentin 100 mg 12/01/21 10:00 12/07/21 09:24 Gabapentin 100 Mg Cap PO 100 mg QDAY YOSSI Administration Hydrophilic Ointment 1 applic 11/06/21 04:02 Lip Therapy Vaseline TP Q2HR PRN Dry Lips NORepinephrine/NS 8 MG-250 ML 8 mg in 250 mls @ 3.75 mls/hr 11/29/21 00:00 12/07/21 06:35 Norepinephrine/Ns 8 Mg-250 Ml (Double Conc) IV 0 mcg/min TITRATE YOSSI 0 mls/hr Titration Protocol 2 MCG/MIN Lansoprazole 30 mg 11/24/21 22:00 12/07/21 09:24 Lansoprazole 30 Mg Solutab FEEDTUBE 30 mg BID YOSSI Administration Levothyroxine Sodium 125 mcg 11/05/21 07:00 12/07/21 06:23 Levothyroxine 125 Mcg Tab PO 125 mcg DAILY@0600 YOSSI Administration Melatonin 5 mg 12/05/21 22:00 12/06/21 22:11 Melatonin 5 Mg Tab PO 5 mg QHS YOSSI Administration Metoprolol Tartrate 12.5 mg 11/21/21 10:00 12/07/21 09:26 Metoprolol Tartrate 25 Mg Tab PO Not Given BID YOSSI Multi-Ingred Cream/Lotion/Oil/Oint 1 applic 11/06/21 04:02 Mineral Oil/Petrolatum, White Ophth Oint 3.5 Gm OU Q4HR PRN Dry Eye(s) Nitroglycerin 0.4 mg 11/30/21 11:36 Nitroglycerin 0.4 Mg Tab Subl SL .Q5MIN PRN Chest Pain Ondansetron HCl 4 mg 12/05/21 10:00 12/05/21 09:27 Ondansetron 4 Mg/2 Ml Inj IV 4 mg Q8H PRN Administration Nausea And Vomiting Polyethylene Glycol 17 gm 12/02/21 10:00 12/07/21 09:28 Polyethylene Glycol 3350 17 Gm Powder PO Not Given QDAY YOSSI Pravastatin Sodium 20 mg 11/18/21 22:00 12/06/21 22:11 Pravastatin 20 Mg Tab PO 20 mg QHS YOSSI Administration Quetiapine Fumarate 50 mg 12/01/21 22:00 12/06/21 22:11 Quetiapine 25 Mg Tab PO 50 mg QHS [facility] Administration Senna 17.6 mg 11/08/21 22:00 12/07/21 09:25 Sennosides Oral Liqd 8.8 Mg/5 Ml Oral Liqd PO Not Given Q12HR YOSSI Simple Syrup 15 ml 11/08/21 11:09 Simple Syrup 15 Ml FEEDTUBE PRN PRN Hypoglycemia Simple Syrup 30 ml 11/08/21 11:09 Simple Syrup 15 Ml FEEDTUBE PRN PRN Hypoglycemia Sodium Bicarbonate 325 mg 11/08/21 11:09 Sodium Bicarbonate 325 Mg Tab FEEDTUBE PRN PRN For Clogged Feeding Tube Sodium Chloride 10 ml 11/04/21 10:00 12/07/21 09:25 Sodium Chloride 0.9% 10 Ml Flush Syringe IV 10 ml BID YOSSI Administration Sodium Chloride 10 ml 11/04/21 02:03 Sodium Chloride 0.9% 10 Ml Flush Syringe IV PRN PRN LINE FLUSH Sodium Chloride 10 ml 11/10/21 09:57 11/17/21 20:47 Sodium Chloride 0.9% 50 Ml Ivpb IV 10 ml PRN PRN Administration FLUSH Sucralfate 1 gm 11/18/21 16:30 12/07/21 12:20 Sucralfate 1 Gm/10 Ml Oral Liqd PO 1 gm ACHS YOSSI Administration Trazodone HCl 50 mg 12/04/21 22:00 12/06/21 22:10 Trazodone 50 Mg Tab PO 50 mg QHS YOSSI Administration Nutrition/Malnutrition Assess - Dietary Evaluation Nutrition/Malnutrition Findings: Nutrition Notes Start: 11/04/21 17:16 Freq: Status: Active Protocol: Document 12/01/21 18:39 ISABELL (Rec: 12/01/21 19:19 ISABELL [id number]) Nutrition Notes Initial or Follow up Reassessment Current Diagnosis Decubitus(Pressure Ulcer), Diabetes,Hypertension, Respiratory Failure Other Pertinent Diagnosis Bilateral Pneumonia and Pleural Effusion, R- Pneumothorax, CHF-EF, GI Bleed . Current Diet TF-Vital AF 1.2 @ 40 ml/hr ( since 11/30) Labs/Tests 12/01: Na 136, BUN 24, Glu 117 , Ca 7.5, Mg 1.6. Pertinent Medications 12/01: Levothyroxine, others nutritionally unremarkable. Height 5 ft Weight 62.4 kg [place] Body Weight (kg) 45.45 BMI 26.9 Weight change and time frame No body weight change reported . Weight Status Overweight Subjective/Other Information RD consult for routine F/U on TF assessment. Glucerna switched to Vital AF due to out of stock situation. PEG tube placed on 11/26, well tolerated. Pt still on Mechanical Ventilation. Pt has missing teerth, according to Physical Assessment History notes. Case Management note 12/01: Patient officially referred to [facility] for aggressive ventilator weaning. Percent of energy/protein needs met: Prescribed Vital AF 1.2 Tamir @ 40 ml/hr provides for energy/ protein needs (1,150 Kcal/72 g ) during LOS, 95% Kcal; 96% AA . Burn Absent Trauma Absent GI Symptoms Other Difficulty In Swallowing,Chewing Food Allergy No Skin Integrity/Comment Lower Extremities Pressure Ulcer. Current % PO Other Minimum of two criteria No #1 Nutrition Diagnosis Inadequate oral intake Diagnosis Progress(for reassessment Continues documentation) Is patient on ventilator? Yes Is Patient Ambulatory and/or Out of Bed No REE-([place]-St. Jeor-confined to bed) 1207.824 Calculation Used for Recommendations [place] Jeor Additional Notes Protein: 1.2-2 g/Kg; 75-125 g/ day. Fluids: 1 ml/Kcal, or as per MD. Nutrition Intervention Nutrition Support: Switch to Vital AF 1.2 Tamir @ 40 ml/hr. Flush: 70 ml water Q 4 hr, or as per MD. Kcal 1,150 Protein (gm) 72 Carbohydrates (gm) 106 Fat (gm) 52 Fluid (mL) 777 Fiber (gm) 5 % RDI: 95% Kcal; 96% AA. Goal #1 Provide at least 75% of energy /protein needs through Enteral Feeding during LOS. Goal #2 Maintain body weight within +/ -3% of admission body weight during LOS. Follow-Up By: 12/08/21 Additional Comments Continue monitoring TF tolerance and BM.
[2021-12-07] MEDS: MELATONIN 5 MG TAB PO SCH (21:47)
[2021-12-07] MEDS: traZODone 50 MG TAB PO SCH (21:47)
[2021-12-07] MEDS: PRAVASTATIN 20 MG TAB PO SCH (21:47)
[2021-12-07] MEDS: QUEtiapine 25 MG TAB PO SCH (21:48)
[2021-12-08] MEDS ORDERED: KETOROLAC 30 MG/1 ML INJ ONE (05:04)
[2021-12-08] MEDS: ONDANSETRON 4 MG/2 ML INJ IV PRN (05:17)
[2021-12-08] MEDS: LEVOTHYROXINE 125 MCG TAB PO SCH (05:18)
[2021-12-08] MEDS ORDERED: KETOROLAC 30 MG/1 ML INJ IV ONE (05:41)
[2021-12-08 05:43] LABS: Hematocrit 23.5 % (30.3-42.9); Hemoglobin 7.7 gm/dl (10.1-14.3); Mean Corpuscular HGB Conc 33 % (30-34); Mean Corpuscular Volume 84 fl (79-97); Platelet Count 201 K/mm3 (140-440); Red Blood Count 2.81 M/mm3 (3.65-5.03)
[2021-12-08 05:45] LABS: Blood Urea Nitrogen 23 mg/dL (7-17); Calcium 8.4 mg/dL (8.4-10.2); Hemolysis Index 2
[2021-12-08 05:48] LABS: BUN/Creatinine Ratio 38
[2021-12-08 05:50] LABS: Red Cell Distribution Width 21.2 % (13.2-15.2)
[2021-12-08] MEDS: HYDROcodone/ACETAMINOPHEN 10-325MG TAB FEEDTUBE SCH ×3 (08:33→21:35)
[2021-12-08] MEDS: GABAPENTIN 100 MG CAP PO SCH (09:53)
[2021-12-08] MEDS: busPIRone 5 MG TAB PO SCH ×2 (09:53→21:35)
[2021-12-08] MEDS: fentaNYL 25 MCG/HR PATCH 72HR TD SCH (09:54)
[2021-12-08] MEDS: SENNOSIDES ORAL LIQD 8.8 MG/5 ML ORAL LIQD PO SCH ×2 (09:54→21:36)
[2021-12-08] MEDS: DOCUSATE SODIUM 100 MG/10 ML ORAL LIQD PO SCH ×2 (09:54→21:33)
[2021-12-08] MEDS: POLYETHYLENE GLYCOL 3350 17 GM POWDER PO SCH (09:54)
[2021-12-08] MEDS: LANSOPRAZOLE 30 MG SOLUTAB FEEDTUBE SCH ×2 (09:54→21:35)
[2021-12-08] MEDS: METOPROLOL TARTRATE 25 MG TAB PO SCH ×2 (10:50→21:33)
[2021-12-08] MEDS: SUCRALFATE 1 GM/10 ML ORAL LIQD PO SCH ×3 (12:21→21:34)
--- NOTE | 2021-12-08 12:52 | Progress Note ---
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e (Called insurance company for peer discussion and her LTAC transfer was denied due to "hemodynamic instability" despite my explaining that she has only intermittently required 2 nicole's/min of Levophed and also that she can be easily managed at the LTAC which also treats critically ill patients) - resume low dose daily lasix X 3 days re: CXR pulm edema pattern - begin Midodrine for BP support acutely - get US chest +/- thoracentesis - schedule Xanax 0.5 mg tid and titrate re: anxiety interfering with weaning - continue daily SAT and SBT assessment as tolerated - LTAC evaluation ongoing - no new issues otherwise, continue care as below; - prn Levophed for target MAP > 65 mmHg - continue to wean supplemental oxygen for target O2 sat's > 90% acutely - VAP bundle addressed - continue lung protective strategies - continue bronchodilators with routine trach care and pulmonary hygiene per RT - wean per pulmonary driven protocols otherwise - avoid nephrotoxins, renally dose all medications - continue accuchecks with glycemic control per SSI (While critically ill target blood glucose of 140-180 mg/dL; avoid hypoglycemia) - sedation prn for target RASS 0 to -1 - antibiotics per ID recommendations - continue to avoid benzodiazepine's, reduce the possibility of delirium - prn analgesia per CPOT score - Maintenance of sleep-wake cycle, avoid delirium - continue enteral nutritional support at goal rate as tolerated - G.I. & VTE prophylaxis - PT/OT/ROM exercises - continue mobility protocols for pressure ulcer prophylaxis - Monitor hemodynamics closely - continue other care per attending / other consultants - discharge planning ongoing concurrently COVID SPECIFIC INTERVENTIONS - COVID-19 PCR negative .... Re-evaluate in am & prn CONDITION: CRITICAL PROGNOSIS: GUARDED CODE STATUS: FULL CODE The high probability of a clinically significant, sudden or life-threatening deterioration of the [respiratory, cardiovascular & neurologic] system(s) required my full and direct attention, intervention and personal management. The aggregate critical care time was [32] minutes without overlap. Time includes spent on; [x] Data Review and interpretation [x] Patient assessment and monitoring of vital signs [x] Documentation [x] Medication orders and management Subjective Date of service: 12/08/21 Principal diagnosis: Septic shock; AHRF; Anemia; Pneumonia; L. pleural effusion; HFrEF; Pulm HTN Interval history: Patient is seen today for: Septic shock; Acute hypoxemic respiratory failure; Anemia; Bilateral pneumonia; Left pleural effusion; HFrEF 30-35%; Pulm HTN RVSP 49 Seen and examined at bedside; 24hour events reviewed; nursing and respiratory care staff consulted; no adverse overnight events reported to me; resting in bed; remains on MVS; still weaning tenuously but on PSV trial with p-supp @ 14 cm H2O; not on Levophed today Objective Vital Signs - 12hr 12/08/21 12/08/21 12/08/21 01:00 01:15 01:30 Temperature Pulse Rate 61 63 60 Pulse Rate [ From Monitor] Respiratory 14 14 14 Rate Blood Pressure 94/35 94/42 94/42 O2 Sat by Pulse 95 97 97 Oximetry 12/08/21 12/08/21 12/08/21 01:45 02:00 02:16 Temperature Pulse Rate 65 61 71 Pulse Rate [ From Monitor] Respiratory 14 14 14 Rate Blood Pressure 105/40 105/40 104/38 O2 Sat by Pulse 97 98 99 Oximetry 12/08/21 12/08/21 12/08/21 02:30 02:45 03:00 Temperature Pulse Rate 62 62 62 Pulse Rate [ From Monitor] Respiratory 14 14 14 Rate Blood Pressure 139/60 107/39 107/39 O2 Sat by Pulse 97 99 96 Oximetry 12/08/21 12/08/21 12/08/21 03:15 03:30 03:46 Temperature Pulse Rate 62 62 61 Pulse Rate [ From Monitor] Respiratory 14 13 14 Rate Blood Pressure 107/41 107/41 110/39 O2 Sat by Pulse 99 99 98 Oximetry 12/08/21 12/08/21 12/08/21 04:00 04:15 04:31 Temperature 98.5 F Pulse Rate 61 66 Pulse Rate [ 74 From Monitor] Respiratory 14 15 Rate Blood Pressure 110/39 114/48 116/56 O2 Sat by Pulse 99 98 99 Oximetry 12/08/21 12/08/21 12/08/21 04:46 05:00 05:16 Temperature Pulse Rate 72 70 Pulse Rate [ From Monitor] Respiratory 15 15 Rate Blood Pressure 134/117 134/117 128/42 O2 Sat by Pulse 100 99 100 Oximetry 12/08/21 12/08/21 12/08/21 05:30 05:46 06:00 Temperature Pulse Rate 65 62 62 Pulse Rate [ From Monitor] Respiratory 14 14 13 Rate Blood Pressure 128/42 106/35 106/35 O2 Sat by Pulse 99 97 97 Oximetry 12/08/21 12/08/21 12/08/21 06:16 06:30 06:45 Temperature Pulse Rate 66 70 62 Pulse Rate [ From Monitor] Respiratory 14 12 14 Rate Blood Pressure 98/33 101/42 96/35 O2 Sat by Pulse 97 98 98 Oximetry 12/08/21 12/08/21 12/08/21 07:00 07:16 07:30 Temperature Pulse Rate 63 62 62 Pulse Rate [ From Monitor] Respiratory 14 14 13 Rate Blood Pressure 96/35 100/33 100/33 O2 Sat by Pulse 96 98 97 Oximetry 12/08/21 12/08/21 12/08/21 07:46 08:00 08:04 Temperature 97.8 F Pulse Rate 61 62 69 Pulse Rate [ 62 From Monitor] Respiratory 15 24 Rate Blood Pressure 97/30 97/30 111/43 O2 Sat by Pulse 98 99 98 Oximetry 12/08/21 12/08/21 12/08/21 08:11 08:15 08:30 Temperature Pulse Rate 69 67 66 Pulse Rate [ From Monitor] Respiratory 24 25 H 18 Rate Blood Pressure 111/43 112/49 112/49 O2 Sat by Pulse 100 99 99 Oximetry 12/08/21 12/08/21 12/08/21 08:33 08:45 09:00 Temperature Pulse Rate 70 67 Pulse Rate [ From Monitor] Respiratory 23 23 19 Rate Blood Pressure 127/56 127/56 O2 Sat by Pulse 99 98 Oximetry 12/08/21 12/08/21 12/08/21 09:16 09:30 09:45 Temperature Pulse Rate 70 64 68 Pulse Rate [ From Monitor] Respiratory 21 20 26 H Rate Blood Pressure 123/33 123/33 110/47 O2 Sat by Pulse 99 97 99 Oximetry 12/08/21 12/08/21 12/08/21 10:00 10:16 10:30 Temperature Pulse Rate 72 69 66 Pulse Rate [ From Monitor] Respiratory 13 26 H 21 Rate Blood Pressure 110/47 146/62 130/88 O2 Sat by Pulse 94 98 98 Oximetry 12/08/21 12/08/21 12/08/21 10:46 11:00 11:16 Temperature Pulse Rate 64 64 64 Pulse Rate [ From Monitor] Respiratory 21 17 20 Rate Blood Pressure 130/88 120/76 120/76 O2 Sat by Pulse 98 100 100 Oximetry 12/08/21 12/08/21 12/08/21 11:30 11:39 11:46 Temperature Pulse Rate 65 63 69 Pulse Rate [ From Monitor] Respiratory 21 21 20 Rate Blood Pressure 120/76 144/58 144/58 O2 Sat by Pulse 99 100 100 Oximetry 12/08/21 12:00 Temperature 97.6 F Pulse Rate Pulse Rate [ 66 From Monitor] Respiratory 21 Rate Blood Pressure O2 Sat by Pulse 99 Oximetry Constitutional: no acute distress, alert, other (trach to MVS, frail elderly woman with mildly increased respiratory effort at rest) Eyes: non-icteric ENT: oropharynx moist, other (+ Midline tracheostomy) Neck: supple, no lymphadenopathy, no JVD Effort: mildly labored Ascultation: Bilateral: diminished breath sounds, rhonchi Percussion: Bilateral: not dull Cardiovascular: regular rate and rhythm, other (S1,S2) Gastrointestinal: normoactive bowel sounds, soft, non-tender, non-distended (protuberant) Integumentary: normal Extremities: no cyanosis, pink and warm, pulses normal, edema (upper etremities) Neurologic: normal mental status, non-focal exam (grossly), pupils equal and round, motor strength normal and Psychiatric: mood appropriate, affect normal CBC and BMP: 12/08/21 04:00 12/08/21 04:00 ABG, PT/INR, D-dimer: ABG ABG pH 7.449 pH Units (7.350-7.450) 11/21/21 16:00 ABG pCO2 32.1 mm Hg 11/21/21 16:00 ABG pO2 114.2 mm Hg (80.0-90.0) H 11/21/21 16:00 ABG O2 Saturation 98.3 % (95.0-99.0) 11/21/21 16:00 PT/INR, D-dimer PT 16.9 Sec. (12.2-14.9) H 11/26/21 05:00 INR 1.24 (0.87-1.13) H 11/26/21 05:00 D-Dimer 2655.00 ng/mlDDU (0-234) H 11/11/21 04:28 Abnormal lab findings: Abnormal Labs 11/03/21 11/03/21 11/03/21 22:32 22:32 22:32 WBC 29.3 H RBC 2.93 L Hgb 6.1 L Hct 21.9 L MCV 75 L MCH 21 L MCHC 28 L RDW 19.7 H Plt Count Seg Neuts % (Manual) 97.0 H Lymphocytes % (Manual) 3.0 L Seg Neutrophils # Man 28.4 H Lymphocytes # (Manual) 0.9 L Monocytes # (Manual) PT 18.6 H INR 1.40 H D-Dimer ABG pH ABG pO2 ABG HCO3 ABG O2 Saturation ABG Base Excess ABG Hemoglobin Oxyhemoglobin Sodium Potassium Chloride Carbon Dioxide 20 L BUN 33 H Creatinine Glucose 119 H POC Glucose Lactic Acid Calcium 8.3 L Phosphorus Magnesium AST ALT Alkaline Phosphatase Lactate Dehydrogenase Troponin T 0.035 H C-Reactive Protein NT-Pro-B Natriuret Pep Total Protein Albumin LDL Cholesterol Direct 34 L Vitamin B12 Crossmatch 11/03/21 11/03/21 11/03/21 22:32 22:32 23:57 WBC RBC Hgb Hct MCV MCH MCHC RDW Plt Count Seg Neuts % (Manual) Lymphocytes % (Manual) Seg Neutrophils # Man Lymphocytes # (Manual) Monocytes # (Manual) PT INR D-Dimer ABG pH ABG pO2 ABG HCO3 ABG O2 Saturation ABG Base Excess ABG Hemoglobin Oxyhemoglobin Sodium Potassium Chloride Carbon Dioxide BUN Creatinine Glucose POC Glucose Lactic Acid 3.70 H* Calcium Phosphorus Magnesium AST ALT Alkaline Phosphatase 139 H Lactate Dehydrogenase Troponin T C-Reactive Protein NT-Pro-B Natriuret Pep 7895 H Total Protein Albumin 3.5 L LDL Cholesterol Direct Vitamin B12 Crossmatch See Detail 11/04/21 11/04/21 11/05/21 00:59 13:58 00:51 WBC 27.9 H RBC 3.28 L Hgb 7.3 L Hct 25.5 L MCV 78 L MCH 22 L MCHC 29 L RDW 19.1 H Plt Count Seg Neuts % (Manual) 96.0 H Lymphocytes % (Manual) 2.0 L Seg Neutrophils # Man 26.8 H Lymphocytes # (Manual) 0.6 L Monocytes # (Manual) PT INR D-Dimer ABG pH ABG pO2 ABG HCO3 ABG O2 Saturation ABG Base Excess ABG Hemoglobin Oxyhemoglobin Sodium Potassium Chloride Carbon Dioxide BUN Creatinine Glucose POC Glucose Lactic Acid Calcium Phosphorus Magnesium AST ALT Alkaline Phosphatase Lactate Dehydrogenase Troponin T 0.051 H D 0.032 H D C-Reactive Protein NT-Pro-B Natriuret Pep Total Protein Albumin LDL Cholesterol Direct Vitamin B12 Crossmatch 11/05/21 11/05/21 11/05/21 06:11 06:11 06:11 WBC 31.8 H RBC 3.57 L Hgb 8.0 L Hct 27.7 L MCV 78 L MCH 22 L MCHC 29 L RDW 19.2 H Plt Count Seg Neuts % (Manual) 91.0 H Lymphocytes % (Manual) 4.5 L Seg Neutrophils # Man 28.9 H Lymphocytes # (Manual) Monocytes # (Manual) 1.1 H PT INR D-Dimer 1494.53 H ABG pH ABG pO2 ABG HCO3 ABG O2 Saturation ABG Base Excess ABG Hemoglobin Oxyhemoglobin Sodium Potassium Chloride Carbon Dioxide 19 L BUN 42 H Creatinine Glucose 115 H POC Glucose Lactic Acid Calcium Phosphorus Magnesium AST 43 H ALT Alkaline Phosphatase Lactate Dehydrogenase 187 H Troponin T C-Reactive Protein 22.20 H NT-Pro-B Natriuret Pep Total Protein 6.0 L Albumin 3.2 L LDL Cholesterol Direct Vitamin B12 Crossmatch 11/05/21 11/05/21 11/06/21 06:11 12:15 00:30 WBC RBC Hgb Hct MCV MCH MCHC RDW Plt Count Seg Neuts % (Manual) Lymphocytes % (Manual) Seg Neutrophils # Man Lymphocytes # (Manual) Monocytes # (Manual) PT INR D-Dimer ABG pH ABG pO2 ABG HCO3 ABG O2 Saturation ABG Base Excess ABG Hemoglobin Oxyhemoglobin Sodium Potassium Chloride Carbon Dioxide BUN Creatinine Glucose POC Glucose 113 H 69 L Lactic Acid Calcium Phosphorus Magnesium AST ALT Alkaline Phosphatase Lactate Dehydrogenase Troponin T 0.033 H C-Reactive Protein NT-Pro-B Natriuret Pep Total Protein Albumin LDL Cholesterol Direct Vitamin B12 Crossmatch 11/06/21 11/06/21 11/06/21 05:50 15:50 15:50 WBC 25.5 H RBC 3.62 L Hgb 8.0 L Hct 27.5 L MCV 76 L MCH 22 L MCHC 29 L RDW 19.6 H Plt Count Seg Neuts % (Manual) 92.0 H Lymphocytes % (Manual) 5.0 L Seg Neutrophils # Man 23.5 H Lymphocytes # (Manual) Monocytes # (Manual) PT INR D-Dimer ABG pH 7.305 L ABG pO2 ABG HCO3 15.8 L ABG O2 Saturation ABG Base Excess -9.6 L ABG Hemoglobin 8.6 L Oxyhemoglobin 94.6 L Sodium Potassium Chloride 113.9 H Carbon Dioxide 17 L BUN 56 H Creatinine Glucose 114 H POC Glucose Lactic Acid Calcium 7.9 L Phosphorus Magnesium AST 1410 H ALT 934 H Alkaline Phosphatase 142 H Lactate Dehydrogenase Troponin T C-Reactive Protein NT-Pro-B Natriuret Pep Total Protein 5.0 L Albumin 2.6 L LDL Cholesterol Direct Vitamin B12 Crossmatch 11/07/21 11/07/21 11/07/21 03:30 04:50 08:07 WBC RBC Hgb Hct MCV MCH MCHC RDW Plt Count Seg Neuts % (Manual) Lymphocytes % (Manual) Seg Neutrophils # Man Lymphocytes # (Manual) Monocytes # (Manual) PT INR D-Dimer ABG pH ABG pO2 296.9 H ABG HCO3 18.1 L ABG O2 Saturation 99.5 H ABG Base Excess -5.9 L ABG Hemoglobin 7.6 L Oxyhemoglobin Sodium Potassium Chloride Carbon Dioxide BUN Creatinine Glucose POC Glucose 106 H 108 H Lactic Acid Calcium Phosphorus Magnesium AST ALT Alkaline Phosphatase Lactate Dehydrogenase Troponin T C-Reactive Protein NT-Pro-B Natriuret Pep Total Protein Albumin LDL Cholesterol Direct Vitamin B12 Crossmatch 11/08/21 11/08/21 11/08/21 03:10 18:05 23:43 WBC RBC Hgb Hct MCV MCH MCHC RDW Plt Count Seg Neuts % (Manual) Lymphocytes % (Manual) Seg Neutrophils # Man Lymphocytes # (Manual) Monocytes # (Manual) PT INR D-Dimer ABG pH ABG pO2 127.4 H ABG HCO3 ABG O2 Saturation ABG Base Excess -3.4 L ABG Hemoglobin 7.4 L Oxyhemoglobin Sodium Potassium Chloride Carbon Dioxide BUN Creatinine Glucose POC Glucose 113 H 141 H Lactic Acid Calcium Phosphorus Magnesium AST ALT Alkaline Phosphatase Lactate Dehydrogenase Troponin T C-Reactive Protein NT-Pro-B Natriuret Pep Total Protein Albumin LDL Cholesterol Direct Vitamin B12 Crossmatch 0111/08/21 11/09/21 Unknown Unknown 02:00 WBC 14.5 H RBC 3.35 L Hgb 7.5 L 8.1 L Hct 25.4 L 27.6 L MCV 76 L 76 L MCH 23 L 22 L MCHC RDW 19.9 H 19.9 H Plt Count Seg Neuts % (Manual) Lymphocytes % (Manual) Seg Neutrophils # Man Lymphocytes # (Manual) Monocytes # (Manual) PT INR D-Dimer ABG pH ABG pO2 ABG HCO3 ABG O2 Saturation ABG Base Excess ABG Hemoglobin Oxyhemoglobin Sodium 154 H D Potassium 3.3 L Chloride 120.7 H Carbon Dioxide 20 L BUN 38 H Creatinine Glucose POC Glucose Lactic Acid Calcium 8.3 L Phosphorus Magnesium AST ALT Alkaline Phosphatase Lactate Dehydrogenase Troponin T C-Reactive Protein NT-Pro-B Natriuret Pep Total Protein Albumin LDL Cholesterol Direct Vitamin B12 Crossmatch 11/09/21 11/09/21 11/09/21 02:00 02:31 05:12 WBC RBC Hgb Hct MCV MCH MCHC RDW Plt Count Seg Neuts % (Manual) Lymphocytes % (Manual) Seg Neutrophils # Man Lymphocytes # (Manual) Monocytes # (Manual) PT INR D-Dimer ABG pH 7.479 H ABG pO2 121.3 H ABG HCO3 ABG O2 Saturation ABG Base Excess ABG Hemoglobin 7.3 L Oxyhemoglobin Sodium Potassium Chloride 112.5 H Carbon Dioxide BUN 33 H Creatinine Glucose 161 H POC Glucose 135 H Lactic Acid Calcium Phosphorus Magnesium AST 251 H ALT 481 H Alkaline Phosphatase Lactate Dehydrogenase Troponin T C-Reactive Protein NT-Pro-B Natriuret Pep Total Protein 5.0 L Albumin 2.8 L LDL Cholesterol Direct Vitamin B12 Crossmatch 11/09/21 11/09/21 11/09/21 11:33 16:32 23:28 WBC RBC Hgb Hct MCV MCH MCHC RDW Plt Count Seg Neuts % (Manual) Lymphocytes % (Manual) Seg Neutrophils # Man Lymphocytes # (Manual) Monocytes # (Manual) PT INR D-Dimer ABG pH ABG pO2 ABG HCO3 ABG O2 Saturation ABG Base Excess ABG Hemoglobin Oxyhemoglobin Sodium Potassium Chloride Carbon Dioxide BUN Creatinine Glucose POC Glucose 132 H 133 H 143 H Lactic Acid Calcium Phosphorus Magnesium AST ALT Alkaline Phosphatase Lactate Dehydrogenase Troponin T C-Reactive Protein NT-Pro-B Natriuret Pep Total Protein Albumin LDL Cholesterol Direct Vitamin B12 Crossmatch 11/10/21 11/10/21 11/10/21 04:00 04:00 05:35 WBC 16.0 H RBC 3.61 L Hgb 8.0 L Hct 27.1 L MCV 75 L MCH 22 L MCHC RDW 20.4 H Plt Count Seg Neuts % (Manual) Lymphocytes % (Manual) Seg Neutrophils # Man Lymphocytes # (Manual) Monocytes # (Manual) PT INR D-Dimer ABG pH ABG pO2 ABG HCO3 ABG O2 Saturation ABG Base Excess ABG Hemoglobin Oxyhemoglobin Sodium 149 H Potassium Chloride 114.1 H Carbon Dioxide BUN 31 H Creatinine Glucose 148 H POC Glucose 132 H Lactic Acid Calcium 8.2 L Phosphorus Magnesium AST ALT Alkaline Phosphatase Lactate Dehydrogenase Troponin T C-Reactive Protein NT-Pro-B Natriuret Pep Total Protein Albumin LDL Cholesterol Direct Vitamin B12 Crossmatch 11/10/21 11/10/21 11/10/21 11:31 14:08 15:35 WBC RBC Hgb Hct MCV MCH MCHC RDW Plt Count Seg Neuts % (Manual) Lymphocytes % (Manual) Seg Neutrophils # Man Lymphocytes # (Manual) Monocytes # (Manual) PT INR D-Dimer ABG pH ABG pO2 126.6 H ABG HCO3 ABG O2 Saturation ABG Base Excess ABG Hemoglobin 7.4 L Oxyhemoglobin Sodium Potassium Chloride Carbon Dioxide BUN Creatinine Glucose POC Glucose 147 H Lactic Acid Calcium Phosphorus Magnesium AST ALT Alkaline Phosphatase Lactate Dehydrogenase Troponin T C-Reactive Protein NT-Pro-B Natriuret Pep Total Protein Albumin LDL Cholesterol Direct Vitamin B12 1823 H Crossmatch 11/10/21 11/11/21 11/11/21 17:53 00:55 04:28 WBC RBC Hgb Hct MCV MCH MCHC RDW Plt Count Seg Neuts % (Manual) Lymphocytes % (Manual) Seg Neutrophils # Man Lymphocytes # (Manual) Monocytes # (Manual) PT INR D-Dimer ABG pH ABG pO2 ABG HCO3 ABG O2 Saturation ABG Base Excess ABG Hemoglobin Oxyhemoglobin Sodium 149 H Potassium Chloride 112.2 H Carbon Dioxide BUN 34 H Creatinine Glucose 148 H POC Glucose 140 H 145 H Lactic Acid Calcium 7.9 L Phosphorus Magnesium AST 53 H ALT 203 H Alkaline Phosphatase Lactate Dehydrogenase Troponin T C-Reactive Protein NT-Pro-B Natriuret Pep Total Protein 4.9 L Albumin 2.6 L LDL Cholesterol Direct Vitamin B12 Crossmatch 11/11/21 11/11/21 11/11/21 04:28 04:28 05:28 WBC 20.9 H RBC 3.47 L Hgb 7.5 L Hct 26.0 L MCV 75 L MCH 22 L MCHC 29 L RDW 21.6 H Plt Count 132 L Seg Neuts % (Manual) Lymphocytes % (Manual) Seg Neutrophils # Man Lymphocytes # (Manual) Monocytes # (Manual) PT INR D-Dimer 2655.00 H ABG pH ABG pO2 ABG HCO3 ABG O2 Saturation ABG Base Excess ABG Hemoglobin Oxyhemoglobin Sodium Potassium Chloride Carbon Dioxide BUN Creatinine Glucose POC Glucose 154 H Lactic Acid Calcium Phosphorus Magnesium AST ALT Alkaline Phosphatase Lactate Dehydrogenase Troponin T C-Reactive Protein NT-Pro-B Natriuret Pep Total Protein Albumin LDL Cholesterol Direct Vitamin B12 Crossmatch 11/11/21 11/11/21 11/12/21 12:38 18:13 00:14 WBC RBC Hgb Hct MCV MCH MCHC RDW Plt Count Seg Neuts % (Manual) Lymphocytes % (Manual) Seg Neutrophils # Man Lymphocytes # (Manual) Monocytes # (Manual) PT INR D-Dimer ABG pH ABG pO2 ABG HCO3 ABG O2 Saturation ABG Base Excess ABG Hemoglobin Oxyhemoglobin Sodium Potassium Chloride Carbon Dioxide BUN Creatinine Glucose POC Glucose 137 H 108 H 137 H Lactic Acid Calcium Phosphorus Magnesium AST ALT Alkaline Phosphatase Lactate Dehydrogenase Troponin T C-Reactive Protein NT-Pro-B Natriuret Pep Total Protein Albumin LDL Cholesterol Direct Vitamin B12 Crossmatch 11/12/21 11/12/21 11/12/21 05:40 06:24 11:12 WBC RBC Hgb Hct MCV MCH MCHC RDW Plt Count Seg Neuts % (Manual) Lymphocytes % (Manual) Seg Neutrophils # Man Lymphocytes # (Manual) Monocytes # (Manual) PT INR D-Dimer ABG pH 7.586 H ABG pO2 150.6 H ABG HCO3 27.2 H ABG O2 Saturation 99.1 H ABG Base Excess 5.2 H ABG Hemoglobin 7.5 L Oxyhemoglobin Sodium Potassium Chloride Carbon Dioxide BUN Creatinine Glucose POC Glucose 132 H 140 H Lactic Acid Calcium Phosphorus Magnesium AST ALT Alkaline Phosphatase Lactate Dehydrogenase Troponin T C-Reactive Protein NT-Pro-B Natriuret Pep Total Protein Albumin LDL Cholesterol Direct Vitamin B12 Crossmatch 11/12/21 11/12/21 11/12/21 14:50 14:50 17:13 WBC 19.8 H RBC 3.27 L Hgb 7.1 L Hct 24.5 L MCV 75 L MCH 22 L MCHC 29 L RDW 22.3 H Plt Count Seg Neuts % (Manual) Lymphocytes % (Manual) Seg Neutrophils # Man Lymphocytes # (Manual) Monocytes # (Manual) PT INR D-Dimer ABG pH ABG pO2 ABG HCO3 ABG O2 Saturation ABG Base Excess ABG Hemoglobin Oxyhemoglobin Sodium 150 H Potassium 3.3 L Chloride 112.0 H Carbon Dioxide BUN 40 H Creatinine Glucose 151 H POC Glucose 121 H Lactic Acid Calcium 7.4 L Phosphorus 1.70 L Magnesium 1.40 L AST ALT Alkaline Phosphatase Lactate Dehydrogenase Troponin T C-Reactive Protein NT-Pro-B Natriuret Pep Total Protein Albumin LDL Cholesterol Direct Vitamin B12 Crossmatch 11/12/21 11/13/21 11/13/21 23:19 05:34 06:30 WBC RBC Hgb Hct MCV MCH MCHC RDW Plt Count Seg Neuts % (Manual) Lymphocytes % (Manual) Seg Neutrophils # Man Lymphocytes # (Manual) Monocytes # (Manual) PT INR D-Dimer ABG pH ABG pO2 ABG HCO3 ABG O2 Saturation ABG Base Excess ABG Hemoglobin Oxyhemoglobin Sodium 149 H Potassium Chloride 60.0 L Carbon Dioxide BUN 40 H Creatinine Glucose 146 H POC Glucose 113 H 132 H Lactic Acid Calcium 7.3 L Phosphorus Magnesium 2.40 H AST ALT 72 H Alkaline Phosphatase Lactate Dehydrogenase Troponin T C-Reactive Protein NT-Pro-B Natriuret Pep Total Protein 5.2 L Albumin 2.2 L LDL Cholesterol Direct Vitamin B12 Crossmatch 11/13/21 11/13/21 11/13/21 06:30 08:30 11:19 WBC 21.2 H RBC 3.12 L Hgb 6.8 L Hct 23.2 L MCV 74 L MCH 22 L MCHC 29 L RDW 22.2 H Plt Count 135 L Seg Neuts % (Manual) Lymphocytes % (Manual) Seg Neutrophils # Man Lymphocytes # (Manual) Monocytes # (Manual) PT INR D-Dimer ABG pH ABG pO2 ABG HCO3 ABG O2 Saturation ABG Base Excess ABG Hemoglobin Oxyhemoglobin Sodium Potassium Chloride Carbon Dioxide BUN Creatinine Glucose POC Glucose 136 H Lactic Acid Calcium Phosphorus Magnesium AST ALT Alkaline Phosphatase Lactate Dehydrogenase Troponin T C-Reactive Protein NT-Pro-B Natriuret Pep Total Protein Albumin LDL Cholesterol Direct Vitamin B12 Crossmatch See Detail 11/13/21 11/14/21 11/14/21 18:21 00:01 04:46 WBC 20.0 H RBC 3.41 L Hgb 7.9 L Hct 26.8 L MCV MCH 23 L MCHC 29 L RDW 24.0 H Plt Count Seg Neuts % (Manual) Lymphocytes % (Manual) Seg Neutrophils # Man Lymphocytes # (Manual) Monocytes # (Manual) PT INR D-Dimer ABG pH ABG pO2 ABG HCO3 ABG O2 Saturation ABG Base Excess ABG Hemoglobin Oxyhemoglobin Sodium Potassium Chloride Carbon Dioxide BUN Creatinine Glucose POC Glucose 149 H 141 H Lactic Acid Calcium Phosphorus Magnesium AST ALT Alkaline Phosphatase Lactate Dehydrogenase Troponin T C-Reactive Protein NT-Pro-B Natriuret Pep Total Protein Albumin LDL Cholesterol Direct Vitamin B12 Crossmatch 11/14/21 11/14/21 11/14/21 04:46 05:10 11:10 WBC RBC Hgb Hct MCV MCH MCHC RDW Plt Count Seg Neuts % (Manual) Lymphocytes % (Manual) Seg Neutrophils # Man Lymphocytes # (Manual) Monocytes # (Manual) PT INR D-Dimer ABG pH ABG pO2 ABG HCO3 ABG O2 Saturation ABG Base Excess ABG Hemoglobin Oxyhemoglobin Sodium 148 H Potassium Chloride 113.1 H Carbon Dioxide BUN 43 H Creatinine Glucose 140 H POC Glucose 132 H 133 H Lactic Acid Calcium 7.5 L Phosphorus Magnesium AST ALT Alkaline Phosphatase Lactate Dehydrogenase Troponin T C-Reactive Protein NT-Pro-B Natriuret Pep Total Protein Albumin LDL Cholesterol Direct Vitamin B12 Crossmatch 11/14/21 11/14/21 11/14/21 16:14 17:48 23:23 WBC RBC Hgb Hct MCV MCH MCHC RDW Plt Count Seg Neuts % (Manual) Lymphocytes % (Manual) Seg Neutrophils # Man Lymphocytes # (Manual) Monocytes # (Manual) PT INR D-Dimer ABG pH ABG pO2 ABG HCO3 28.0 H ABG O2 Saturation ABG Base Excess 3.1 H ABG Hemoglobin 5.8 L Oxyhemoglobin 94.8 L Sodium Potassium Chloride Carbon Dioxide BUN Creatinine Glucose POC Glucose 130 H 136 H Lactic Acid Calcium Phosphorus Magnesium AST ALT Alkaline Phosphatase Lactate Dehydrogenase Troponin T C-Reactive Protein NT-Pro-B Natriuret Pep Total Protein Albumin LDL Cholesterol Direct Vitamin B12 Crossmatch 11/15/21 11/15/21 11/15/21 05:20 05:50 05:50 WBC 19.9 H RBC 3.50 L Hgb 8.2 L Hct 27.9 L MCV MCH 23 L MCHC 29 L RDW 24.9 H Plt Count Seg Neuts % (Manual) Lymphocytes % (Manual) Seg Neutrophils # Man Lymphocytes # (Manual) Monocytes # (Manual) PT INR D-Dimer ABG pH ABG pO2 ABG HCO3 ABG O2 Saturation ABG Base Excess ABG Hemoglobin Oxyhemoglobin Sodium 149 H Potassium Chloride 112.0 H Carbon Dioxide BUN 48 H Creatinine Glucose 152 H POC Glucose 137 H Lactic Acid Calcium 7.9 L Phosphorus Magnesium AST ALT Alkaline Phosphatase Lactate Dehydrogenase Troponin T C-Reactive Protein NT-Pro-B Natriuret Pep Total Protein Albumin LDL Cholesterol Direct Vitamin B12 Crossmatch 11/15/21 11/15/21 11/15/21 12:12 17:07 23:24 WBC RBC Hgb Hct MCV MCH MCHC RDW Plt Count Seg Neuts % (Manual) Lymphocytes % (Manual) Seg Neutrophils # Man Lymphocytes # (Manual) Monocytes # (Manual) PT INR D-Dimer ABG pH ABG pO2 ABG HCO3 ABG O2 Saturation ABG Base Excess ABG Hemoglobin Oxyhemoglobin Sodium Potassium Chloride Carbon Dioxide BUN Creatinine Glucose POC Glucose 114 H 135 H 123 H Lactic Acid Calcium Phosphorus Magnesium AST ALT Alkaline Phosphatase Lactate Dehydrogenase Troponin T C-Reactive Protein NT-Pro-B Natriuret Pep Total Protein Albumin LDL Cholesterol Direct Vitamin B12 Crossmatch 11/16/21 11/16/21 11/16/21 05:21 10:00 10:00 WBC 21.7 H RBC 2.57 L Hgb 6.0 L Hct 20.2 L D MCV MCH 24 L MCHC RDW 26.3 H Plt Count Seg Neuts % (Manual) Lymphocytes % (Manual) Seg Neutrophils # Man Lymphocytes # (Manual) Monocytes # (Manual) PT INR D-Dimer ABG pH ABG pO2 ABG HCO3 ABG O2 Saturation ABG Base Excess ABG Hemoglobin Oxyhemoglobin Sodium 153 H Potassium Chloride 114.9 H Carbon Dioxide BUN 74 H Creatinine Glucose 155 H POC Glucose 127 H Lactic Acid Calcium 8.1 L Phosphorus Magnesium AST ALT Alkaline Phosphatase Lactate Dehydrogenase Troponin T C-Reactive Protein NT-Pro-B Natriuret Pep Total Protein Albumin LDL Cholesterol Direct Vitamin B12 Crossmatch 11/16/21 11/16/21 11/16/21 11:34 14:00 15:25 WBC 17.2 H RBC 2.08 L Hgb 4.7 L* Hct 16.2 L* MCV 78 L MCH 23 L MCHC 29 L RDW 26.0 H Plt Count Seg Neuts % (Manual) 87.0 H Lymphocytes % (Manual) 8.0 L Seg Neutrophils # Man 15.0 H Lymphocytes # (Manual) Monocytes # (Manual) 0.9 H PT INR D-Dimer ABG pH ABG pO2 ABG HCO3 ABG O2 Saturation ABG Base Excess ABG Hemoglobin Oxyhemoglobin Sodium Potassium Chloride Carbon Dioxide BUN Creatinine Glucose POC Glucose 131 H Lactic Acid Calcium Phosphorus Magnesium AST ALT Alkaline Phosphatase Lactate Dehydrogenase Troponin T C-Reactive Protein NT-Pro-B Natriuret Pep Total Protein Albumin LDL Cholesterol Direct Vitamin B12 Crossmatch See Detail 11/16/21 11/16/21 11/16/21 15:25 17:21 22:43 WBC RBC Hgb 8.6 L D Hct 27.7 L D MCV MCH MCHC RDW Plt Count Seg Neuts % (Manual) Lymphocytes % (Manual) Seg Neutrophils # Man Lymphocytes # (Manual) Monocytes # (Manual) PT INR D-Dimer ABG pH ABG pO2 ABG HCO3 ABG O2 Saturation ABG Base Excess ABG Hemoglobin Oxyhemoglobin Sodium 148 H Potassium Chloride 113.2 H Carbon Dioxide BUN 84 H Creatinine Glucose 164 H POC Glucose 124 H Lactic Acid Calcium 7.6 L Phosphorus Magnesium AST ALT Alkaline Phosphatase Lactate Dehydrogenase Troponin T C-Reactive Protein NT-Pro-B Natriuret Pep Total Protein Albumin LDL Cholesterol Direct Vitamin B12 Crossmatch 11/16/21 11/17/21 11/17/21 23:07 05:33 05:56 WBC 25.1 H RBC 3.47 L Hgb 8.7 L Hct 28.5 L MCV MCH 25 L MCHC RDW 22.3 H Plt Count Seg Neuts % (Manual) Lymphocytes % (Manual) Seg Neutrophils # Man Lymphocytes # (Manual) Monocytes # (Manual) PT INR D-Dimer ABG pH ABG pO2 ABG HCO3 ABG O2 Saturation ABG Base Excess ABG Hemoglobin Oxyhemoglobin Sodium Potassium Chloride Carbon Dioxide BUN Creatinine Glucose POC Glucose 128 H 133 H Lactic Acid Calcium Phosphorus Magnesium AST ALT Alkaline Phosphatase Lactate Dehydrogenase Troponin T C-Reactive Protein NT-Pro-B Natriuret Pep Total Protein Albumin LDL Cholesterol Direct Vitamin B12 Crossmatch 11/17/21 11/17/21 11/17/21 05:56 11:00 11:55 WBC RBC Hgb 8.3 L Hct 26.9 L MCV MCH MCHC RDW Plt Count Seg Neuts % (Manual) Lymphocytes % (Manual) Seg Neutrophils # Man Lymphocytes # (Manual) Monocytes # (Manual) PT INR D-Dimer ABG pH ABG pO2 ABG HCO3 ABG O2 Saturation ABG Base Excess ABG Hemoglobin Oxyhemoglobin Sodium 151 H Potassium Chloride 113.6 H Carbon Dioxide BUN 85 H Creatinine Glucose 132 H POC Glucose 121 H Lactic Acid Calcium 7.8 L Phosphorus Magnesium AST ALT Alkaline Phosphatase Lactate Dehydrogenase Troponin T C-Reactive Protein NT-Pro-B Natriuret Pep Total Protein 5.1 L Albumin 2.2 L LDL Cholesterol Direct Vitamin B12 Crossmatch 11/17/21 11/17/21 11/18/21 18:04 18:55 00:26 WBC RBC Hgb 7.5 L 7.1 L Hct 24.8 L 23.6 L MCV MCH MCHC RDW Plt Count Seg Neuts % (Manual) Lymphocytes % (Manual) Seg Neutrophils # Man Lymphocytes # (Manual) Monocytes # (Manual) PT INR D-Dimer ABG pH ABG pO2 ABG HCO3 ABG O2 Saturation ABG Base Excess ABG Hemoglobin Oxyhemoglobin Sodium Potassium Chloride Carbon Dioxide BUN Creatinine Glucose POC Glucose 144 H Lactic Acid Calcium Phosphorus Magnesium AST ALT Alkaline Phosphatase Lactate Dehydrogenase Troponin T C-Reactive Protein NT-Pro-B Natriuret Pep Total Protein Albumin LDL Cholesterol Direct Vitamin B12 Crossmatch 11/18/21 11/18/21 11/18/21 00:43 05:10 05:10 WBC 12.5 H RBC 2.39 L Hgb 6.1 L Hct 20.2 L MCV MCH 25 L MCHC RDW 23.2 H Plt Count Seg Neuts % (Manual) Lymphocytes % (Manual) Seg Neutrophils # Man Lymphocytes # (Manual) Monocytes # (Manual) PT INR D-Dimer ABG pH ABG pO2 ABG HCO3 ABG O2 Saturation ABG Base Excess ABG Hemoglobin Oxyhemoglobin Sodium 131 L D Potassium 2.9 L* D Chloride 97.8 L Carbon Dioxide BUN 58 H Creatinine Glucose 665 H* POC Glucose 139 H Lactic Acid Calcium 7.0 L Phosphorus 2.20 L D Magnesium 1.50 L AST ALT Alkaline Phosphatase Lactate Dehydrogenase Troponin T C-Reactive Protein NT-Pro-B Natriuret Pep Total Protein Albumin LDL Cholesterol Direct Vitamin B12 Crossmatch 11/18/21 11/18/21 11/18/21 05:23 07:10 10:45 WBC RBC Hgb Hct MCV MCH MCHC RDW Plt Count Seg Neuts % (Manual) Lymphocytes % (Manual) Seg Neutrophils # Man Lymphocytes # (Manual) Monocytes # (Manual) PT INR D-Dimer ABG pH ABG pO2 ABG HCO3 ABG O2 Saturation ABG Base Excess ABG Hemoglobin Oxyhemoglobin Sodium 148 H D Potassium 3.1 L Chloride 111.9 H Carbon Dioxide BUN 63 H Creatinine Glucose 141 H POC Glucose 124 H Lactic Acid Calcium 8.1 L D Phosphorus Magnesium AST ALT Alkaline Phosphatase Lactate Dehydrogenase Troponin T C-Reactive Protein NT-Pro-B Natriuret Pep Total Protein Albumin LDL Cholesterol Direct Vitamin B12 Crossmatch See Detail 11/18/21 11/19/21 11/19/21 11:57 00:19 04:55 WBC RBC 3.35 L Hgb 9.0 L 8.9 L Hct 28.3 L D 28.1 L MCV MCH 27 L MCHC RDW 20.3 H Plt Count Seg Neuts % (Manual) Lymphocytes % (Manual) Seg Neutrophils # Man Lymphocytes # (Manual) Monocytes # (Manual) PT INR D-Dimer ABG pH ABG pO2 ABG HCO3 ABG O2 Saturation ABG Base Excess ABG Hemoglobin Oxyhemoglobin Sodium Potassium Chloride Carbon Dioxide BUN Creatinine Glucose POC Glucose 119 H Lactic Acid Calcium Phosphorus Magnesium AST ALT Alkaline Phosphatase Lactate Dehydrogenase Troponin T C-Reactive Protein NT-Pro-B Natriuret Pep Total Protein Albumin LDL Cholesterol Direct Vitamin B12 Crossmatch 11/19/21 11/19/21 11/20/21 04:55 05:42 00:55 WBC RBC Hgb 9.0 L Hct 28.6 L MCV MCH MCHC RDW Plt Count Seg Neuts % (Manual) Lymphocytes % (Manual) Seg Neutrophils # Man Lymphocytes # (Manual) Monocytes # (Manual) PT INR D-Dimer ABG pH ABG pO2 ABG HCO3 ABG O2 Saturation ABG Base Excess ABG Hemoglobin Oxyhemoglobin Sodium Potassium 3.5 L Chloride 108.6 H Carbon Dioxide BUN 47 H Creatinine Glucose 207 H POC Glucose 63 L Lactic Acid Calcium 7.1 L Phosphorus Magnesium AST ALT Alkaline Phosphatase Lactate Dehydrogenase Troponin T C-Reactive Protein NT-Pro-B Natriuret Pep Total Protein Albumin LDL Cholesterol Direct Vitamin B12 Crossmatch 11/20/21 11/20/21 11/20/21 05:40 05:40 Unknown WBC RBC 3.40 L Hgb 9.1 L Hct 28.8 L MCV MCH 27 L MCHC RDW 20.7 H Plt Count Seg Neuts % (Manual) Lymphocytes % (Manual) Seg Neutrophils # Man Lymphocytes # (Manual) Monocytes # (Manual) PT INR D-Dimer ABG pH ABG pO2 ABG HCO3 ABG O2 Saturation ABG Base Excess -2.7 L ABG Hemoglobin 9.5 L Oxyhemoglobin 94.3 L Sodium Potassium 3.5 L Chloride 108.9 H Carbon Dioxide BUN 37 H Creatinine Glucose 117 H POC Glucose Lactic Acid Calcium 7.5 L Phosphorus Magnesium AST ALT Alkaline Phosphatase Lactate Dehydrogenase Troponin T C-Reactive Protein NT-Pro-B Natriuret Pep Total Protein Albumin LDL Cholesterol Direct Vitamin B12 Crossmatch 11/21/21 11/21/21 11/21/21 04:30 04:30 16:00 WBC RBC 3.25 L Hgb 8.6 L Hct 28.1 L MCV MCH 26 L MCHC RDW 20.7 H Plt Count Seg Neuts % (Manual) Lymphocytes % (Manual) Seg Neutrophils # Man Lymphocytes # (Manual) Monocytes # (Manual) PT INR D-Dimer ABG pH ABG pO2 114.2 H ABG HCO3 ABG O2 Saturation ABG Base Excess ABG Hemoglobin 9.1 L Oxyhemoglobin Sodium 134 L Potassium Chloride Carbon Dioxide 20 L BUN 34 H Creatinine Glucose POC Glucose Lactic Acid Calcium 7.1 L Phosphorus Magnesium AST ALT Alkaline Phosphatase Lactate Dehydrogenase Troponin T C-Reactive Protein NT-Pro-B Natriuret Pep Total Protein Albumin LDL Cholesterol Direct Vitamin B12 Crossmatch 11/22/21 11/22/21 11/22/21 07:07 07:07 23:54 WBC RBC 3.30 L Hgb 9.0 L Hct 28.5 L MCV MCH 27 L MCHC RDW 21.0 H Plt Count Seg Neuts % (Manual) Lymphocytes % (Manual) Seg Neutrophils # Man Lymphocytes # (Manual) Monocytes # (Manual) PT INR D-Dimer ABG pH ABG pO2 ABG HCO3 ABG O2 Saturation ABG Base Excess ABG Hemoglobin Oxyhemoglobin Sodium Potassium Chloride Carbon Dioxide BUN 32 H Creatinine Glucose 106 H POC Glucose 110 H Lactic Acid Calcium 7.5 L Phosphorus Magnesium AST ALT Alkaline Phosphatase Lactate Dehydrogenase Troponin T C-Reactive Protein NT-Pro-B Natriuret Pep Total Protein Albumin LDL Cholesterol Direct Vitamin B12 Crossmatch 11/23/21 11/23/21 11/23/21 04:38 04:38 06:01 WBC RBC 3.23 L Hgb 8.8 L Hct 28.0 L MCV MCH 27 L MCHC RDW 21.3 H Plt Count Seg Neuts % (Manual) Lymphocytes % (Manual) Seg Neutrophils # Man Lymphocytes # (Manual) Monocytes # (Manual) PT INR D-Dimer ABG pH ABG pO2 ABG HCO3 ABG O2 Saturation ABG Base Excess ABG Hemoglobin Oxyhemoglobin Sodium 136 L Potassium Chloride Carbon Dioxide 20 L BUN 32 H Creatinine Glucose 109 H POC Glucose 115 H Lactic Acid Calcium 7.7 L Phosphorus Magnesium AST ALT Alkaline Phosphatase Lactate Dehydrogenase Troponin T C-Reactive Protein NT-Pro-B Natriuret Pep Total Protein Albumin LDL Cholesterol Direct Vitamin B12 Crossmatch 11/23/21 11/24/21 11/24/21 11:40 00:03 04:13 WBC RBC 3.18 L Hgb 8.5 L Hct 27.5 L MCV MCH 27 L MCHC RDW 21.6 H Plt Count Seg Neuts % (Manual) Lymphocytes % (Manual) Seg Neutrophils # Man Lymphocytes # (Manual) Monocytes # (Manual) PT INR D-Dimer ABG pH ABG pO2 ABG HCO3 ABG O2 Saturation ABG Base Excess ABG Hemoglobin Oxyhemoglobin Sodium Potassium Chloride Carbon Dioxide BUN Creatinine Glucose POC Glucose 117 H 111 H Lactic Acid Calcium Phosphorus Magnesium AST ALT Alkaline Phosphatase Lactate Dehydrogenase Troponin T C-Reactive Protein NT-Pro-B Natriuret Pep Total Protein Albumin LDL Cholesterol Direct Vitamin B12 Crossmatch 11/24/21 11/24/21 11/24/21 04:13 05:30 11:10 WBC RBC Hgb Hct MCV MCH MCHC RDW Plt Count Seg Neuts % (Manual) Lymphocytes % (Manual) Seg Neutrophils # Man Lymphocytes # (Manual) Monocytes # (Manual) PT INR D-Dimer ABG pH ABG pO2 ABG HCO3 ABG O2 Saturation ABG Base Excess ABG Hemoglobin Oxyhemoglobin Sodium Potassium Chloride Carbon Dioxide BUN 31 H Creatinine Glucose 101 H POC Glucose 115 H 107 H Lactic Acid Calcium 7.7 L Phosphorus Magnesium AST ALT Alkaline Phosphatase Lactate Dehydrogenase Troponin T C-Reactive Protein NT-Pro-B Natriuret Pep Total Protein Albumin LDL Cholesterol Direct Vitamin B12 Crossmatch 11/24/21 11/24/21 11/25/21 16:34 17:57 05:12 WBC RBC 3.11 L Hgb 8.2 L Hct 26.6 L MCV MCH 26 L MCHC RDW 21.3 H Plt Count Seg Neuts % (Manual) Lymphocytes % (Manual) Seg Neutrophils # Man Lymphocytes # (Manual) Monocytes # (Manual) PT INR D-Dimer ABG pH ABG pO2 ABG HCO3 ABG O2 Saturation ABG Base Excess ABG Hemoglobin Oxyhemoglobin Sodium Potassium Chloride Carbon Dioxide BUN Creatinine Glucose POC Glucose 115 H 110 H Lactic Acid Calcium Phosphorus Magnesium AST ALT Alkaline Phosphatase Lactate Dehydrogenase Troponin T C-Reactive Protein NT-Pro-B Natriuret Pep Total Protein Albumin LDL Cholesterol Direct Vitamin B12 Crossmatch 11/25/21 11/25/21 11/26/21 05:12 11:20 05:00 WBC RBC 3.30 L Hgb 8.8 L Hct 28.2 L MCV MCH 27 L MCHC RDW 20.7 H Plt Count Seg Neuts % (Manual) Lymphocytes % (Manual) Seg Neutrophils # Man Lymphocytes # (Manual) Monocytes # (Manual) PT INR D-Dimer ABG pH ABG pO2 ABG HCO3 ABG O2 Saturation ABG Base Excess ABG Hemoglobin Oxyhemoglobin Sodium Potassium Chloride Carbon Dioxide BUN 32 H Creatinine Glucose 118 H POC Glucose 118 H Lactic Acid Calcium 8.2 L Phosphorus Magnesium AST ALT Alkaline Phosphatase Lactate Dehydrogenase Troponin T C-Reactive Protein NT-Pro-B Natriuret Pep Total Protein Albumin LDL Cholesterol Direct Vitamin B12 Crossmatch 11/26/21 11/26/21 11/26/21 05:00 05:00 05:44 WBC RBC Hgb Hct MCV MCH MCHC RDW Plt Count Seg Neuts % (Manual) Lymphocytes % (Manual) Seg Neutrophils # Man Lymphocytes # (Manual) Monocytes # (Manual) PT 16.9 H INR 1.24 H D-Dimer ABG pH ABG pO2 ABG HCO3 ABG O2 Saturation ABG Base Excess ABG Hemoglobin Oxyhemoglobin Sodium Potassium Chloride Carbon Dioxide BUN 31 H Creatinine Glucose 104 H POC Glucose 110 H Lactic Acid Calcium 7.9 L Phosphorus Magnesium AST ALT Alkaline Phosphatase Lactate Dehydrogenase Troponin T C-Reactive Protein NT-Pro-B Natriuret Pep Total Protein Albumin LDL Cholesterol Direct Vitamin B12 Crossmatch 11/26/21 11/27/21 11/27/21 23:55 07:40 07:40 WBC RBC 3.18 L Hgb 8.5 L Hct 27.0 L MCV MCH 27 L MCHC RDW 21.2 H Plt Count Seg Neuts % (Manual) Lymphocytes % (Manual) Seg Neutrophils # Man Lymphocytes # (Manual) Monocytes # (Manual) PT INR D-Dimer ABG pH ABG pO2 ABG HCO3 ABG O2 Saturation ABG Base Excess ABG Hemoglobin Oxyhemoglobin Sodium Potassium Chloride Carbon Dioxide BUN 27 H Creatinine Glucose 112 H POC Glucose 63 L Lactic Acid Calcium 7.6 L Phosphorus Magnesium AST ALT Alkaline Phosphatase Lactate Dehydrogenase Troponin T C-Reactive Protein NT-Pro-B Natriuret Pep Total Protein Albumin LDL Cholesterol Direct Vitamin B12 Crossmatch 11/27/21 11/27/21 11/27/21 12:04 13:40 13:40 WBC RBC 3.31 L Hgb 8.7 L Hct 28.0 L MCV MCH 26 L MCHC RDW 20.7 H Plt Count Seg Neuts % (Manual) Lymphocytes % (Manual) Seg Neutrophils # Man Lymphocytes # (Manual) Monocytes # (Manual) PT INR D-Dimer ABG pH ABG pO2 ABG HCO3 ABG O2 Saturation ABG Base Excess ABG Hemoglobin Oxyhemoglobin Sodium 136 L Potassium Chloride Carbon Dioxide BUN 25 H Creatinine Glucose 127 H POC Glucose 109 H Lactic Acid Calcium 7.6 L Phosphorus Magnesium 1.40 L AST ALT Alkaline Phosphatase Lactate Dehydrogenase Troponin T C-Reactive Protein NT-Pro-B Natriuret Pep Total Protein Albumin LDL Cholesterol Direct Vitamin B12 Crossmatch 11/27/21 11/27/21 11/28/21 17:44 23:33 12:20 WBC RBC Hgb Hct MCV MCH MCHC RDW Plt Count Seg Neuts % (Manual) Lymphocytes % (Manual) Seg Neutrophils # Man Lymphocytes # (Manual) Monocytes # (Manual) PT INR D-Dimer ABG pH ABG pO2 ABG HCO3 ABG O2 Saturation ABG Base Excess ABG Hemoglobin Oxyhemoglobin Sodium Potassium Chloride Carbon Dioxide BUN Creatinine Glucose POC Glucose 107 H 108 H 114 H Lactic Acid Calcium Phosphorus Magnesium AST ALT Alkaline Phosphatase Lactate Dehydrogenase Troponin T C-Reactive Protein NT-Pro-B Natriuret Pep Total Protein Albumin LDL Cholesterol Direct Vitamin B12 Crossmatch 11/29/21 11/29/2122 00:09 03:20 03:20 WBC RBC 3.05 L Hgb 8.2 L Hct 25.8 L MCV MCH 27 L MCHC RDW 20.9 H Plt Count Seg Neuts % (Manual) Lymphocytes % (Manual) Seg Neutrophils # Man Lymphocytes # (Manual) Monocytes # (Manual) PT INR D-Dimer ABG pH ABG pO2 ABG HCO3 ABG O2 Saturation ABG Base Excess ABG Hemoglobin Oxyhemoglobin Sodium 133 L Potassium Chloride Carbon Dioxide BUN 24 H Creatinine Glucose 137 H POC Glucose 134 H Lactic Acid Calcium 7.4 L Phosphorus Magnesium AST ALT Alkaline Phosphatase Lactate Dehydrogenase Troponin T C-Reactive Protein NT-Pro-B Natriuret Pep Total Protein Albumin LDL Cholesterol Direct Vitamin B12 Crossmatch 11/29/21 11/29/21 11/29/21 05:38 11:39 17:11 WBC RBC Hgb Hct MCV MCH MCHC RDW Plt Count Seg Neuts % (Manual) Lymphocytes % (Manual) Seg Neutrophils # Man Lymphocytes # (Manual) Monocytes # (Manual) PT INR D-Dimer ABG pH ABG pO2 ABG HCO3 ABG O2 Saturation ABG Base Excess ABG Hemoglobin Oxyhemoglobin Sodium Potassium Chloride Carbon Dioxide BUN Creatinine Glucose POC Glucose 117 H 143 H 124 H Lactic Acid Calcium Phosphorus Magnesium AST ALT Alkaline Phosphatase Lactate Dehydrogenase Troponin T C-Reactive Protein NT-Pro-B Natriuret Pep Total Protein Albumin LDL Cholesterol Direct Vitamin B12 Crossmatch 11/29/21 11/30/21 11/30/21 20:15 05:40 05:40 WBC 12.6 H RBC 3.41 L Hgb 9.1 L Hct 28.9 L MCV MCH 27 L MCHC RDW 20.4 H Plt Count Seg Neuts % (Manual) Lymphocytes % (Manual) Seg Neutrophils # Man Lymphocytes # (Manual) Monocytes # (Manual) PT INR D-Dimer ABG pH ABG pO2 ABG HCO3 ABG O2 Saturation ABG Base Excess ABG Hemoglobin Oxyhemoglobin Sodium Potassium Chloride Carbon Dioxide BUN 24 H Creatinine Glucose 131 H POC Glucose Lactic Acid Calcium 7.6 L Phosphorus Magnesium AST ALT Alkaline Phosphatase Lactate Dehydrogenase Troponin T 0.045 H C-Reactive Protein NT-Pro-B Natriuret Pep Total Protein Albumin LDL Cholesterol Direct 25 L Vitamin B12 Crossmatch 11/30/21 11/30/21 12/01/21 11:29 16:51 05:00 WBC RBC 2.97 L Hgb 8.0 L Hct 25.0 L MCV MCH 27 L MCHC RDW 20.8 H Plt Count Seg Neuts % (Manual) Lymphocytes % (Manual) Seg Neutrophils # Man Lymphocytes # (Manual) Monocytes # (Manual) PT INR D-Dimer ABG pH ABG pO2 ABG HCO3 ABG O2 Saturation ABG Base Excess ABG Hemoglobin Oxyhemoglobin Sodium Potassium Chloride Carbon Dioxide BUN Creatinine Glucose POC Glucose 123 H 114 H Lactic Acid Calcium Phosphorus Magnesium AST ALT Alkaline Phosphatase Lactate Dehydrogenase Troponin T C-Reactive Protein NT-Pro-B Natriuret Pep Total Protein Albumin LDL Cholesterol Direct Vitamin B12 Crossmatch 12/01/21 12/01/21 12/01/21 05:00 05:25 11:54 WBC RBC Hgb Hct MCV MCH MCHC RDW Plt Count Seg Neuts % (Manual) Lymphocytes % (Manual) Seg Neutrophils # Man Lymphocytes # (Manual) Monocytes # (Manual) PT INR D-Dimer ABG pH ABG pO2 ABG HCO3 ABG O2 Saturation ABG Base Excess ABG Hemoglobin Oxyhemoglobin Sodium 136 L Potassium Chloride Carbon Dioxide BUN 24 H Creatinine Glucose 117 H POC Glucose 108 H 107 H Lactic Acid Calcium 7.5 L Phosphorus Magnesium 1.60 L AST ALT Alkaline Phosphatase Lactate Dehydrogenase Troponin T C-Reactive Protein NT-Pro-B Natriuret Pep Total Protein Albumin LDL Cholesterol Direct Vitamin B12 Crossmatch 12/01/21 12/02/21 12/02/21 17:40 00:07 04:20 WBC RBC 2.92 L Hgb 7.7 L Hct 24.3 L MCV MCH 26 L MCHC RDW 20.5 H Plt Count Seg Neuts % (Manual) Lymphocytes % (Manual) Seg Neutrophils # Man Lymphocytes # (Manual) Monocytes # (Manual) PT INR D-Dimer ABG pH ABG pO2 ABG HCO3 ABG O2 Saturation ABG Base Excess ABG Hemoglobin Oxyhemoglobin Sodium Potassium Chloride Carbon Dioxide BUN Creatinine Glucose POC Glucose 123 H 110 H Lactic Acid Calcium Phosphorus Magnesium AST ALT Alkaline Phosphatase Lactate Dehydrogenase Troponin T C-Reactive Protein NT-Pro-B Natriuret Pep Total Protein Albumin LDL Cholesterol Direct Vitamin B12 Crossmatch 12/02/21 12/02/21 12/02/21 04:20 11:17 18:20 WBC RBC Hgb Hct MCV MCH MCHC RDW Plt Count Seg Neuts % (Manual) Lymphocytes % (Manual) Seg Neutrophils # Man Lymphocytes # (Manual) Monocytes # (Manual) PT INR D-Dimer ABG pH ABG pO2 ABG HCO3 ABG O2 Saturation ABG Base Excess ABG Hemoglobin Oxyhemoglobin Sodium 135 L Potassium Chloride Carbon Dioxide BUN 26 H Creatinine Glucose 121 H POC Glucose 117 H 113 H Lactic Acid Calcium 7.4 L Phosphorus Magnesium AST ALT Alkaline Phosphatase Lactate Dehydrogenase Troponin T C-Reactive Protein NT-Pro-B Natriuret Pep Total Protein Albumin LDL Cholesterol Direct Vitamin B12 Crossmatch 12/03/21 12/03/21 12/03/21 00:12 04:00 04:00 WBC RBC 2.99 L Hgb 7.8 L Hct 24.6 L MCV MCH 26 L MCHC RDW 20.2 H Plt Count Seg Neuts % (Manual) Lymphocytes % (Manual) Seg Neutrophils # Man Lymphocytes # (Manual) Monocytes # (Manual) PT INR D-Dimer ABG pH ABG pO2 ABG HCO3 ABG O2 Saturation ABG Base Excess ABG Hemoglobin Oxyhemoglobin Sodium 136 L Potassium Chloride Carbon Dioxide BUN 27 H Creatinine Glucose 133 H POC Glucose 121 H Lactic Acid Calcium 7.5 L Phosphorus Magnesium AST ALT Alkaline Phosphatase Lactate Dehydrogenase Troponin T C-Reactive Protein NT-Pro-B Natriuret Pep Total Protein Albumin LDL Cholesterol Direct Vitamin B12 Crossmatch 12/03/21 12/03/21 12/03/21 06:30 11:13 16:00 WBC RBC Hgb Hct MCV MCH MCHC RDW Plt Count Seg Neuts % (Manual) Lymphocytes % (Manual) Seg Neutrophils # Man Lymphocytes # (Manual) Monocytes # (Manual) PT INR D-Dimer ABG pH ABG pO2 ABG HCO3 ABG O2 Saturation ABG Base Excess ABG Hemoglobin Oxyhemoglobin Sodium Potassium Chloride Carbon Dioxide BUN Creatinine Glucose POC Glucose 129 H 125 H 125 H Lactic Acid Calcium Phosphorus Magnesium AST ALT Alkaline Phosphatase Lactate Dehydrogenase Troponin T C-Reactive Protein NT-Pro-B Natriuret Pep Total Protein Albumin LDL Cholesterol Direct Vitamin B12 Crossmatch 12/03/21 12/04/21 12/04/21 23:32 04:00 05:36 WBC RBC Hgb Hct MCV MCH MCHC RDW Plt Count Seg Neuts % (Manual) Lymphocytes % (Manual) Seg Neutrophils # Man Lymphocytes # (Manual) Monocytes # (Manual) PT INR D-Dimer ABG pH ABG pO2 ABG HCO3 ABG O2 Saturation ABG Base Excess ABG Hemoglobin Oxyhemoglobin Sodium Potassium 3.5 L Chloride Carbon Dioxide BUN 26 H Creatinine 0.5 L Glucose 151 H POC Glucose 133 H 142 H Lactic Acid Calcium 8.3 L Phosphorus Magnesium AST ALT Alkaline Phosphatase Lactate Dehydrogenase Troponin T C-Reactive Protein NT-Pro-B Natriuret Pep Total Protein Albumin LDL Cholesterol Direct Vitamin B12 Crossmatch 12/04/21 12/04/21 12/05/21 11:24 15:58 04:36 WBC RBC Hgb Hct MCV MCH MCHC RDW Plt Count Seg Neuts % (Manual) Lymphocytes % (Manual) Seg Neutrophils # Man Lymphocytes # (Manual) Monocytes # (Manual) PT INR D-Dimer ABG pH ABG pO2 ABG HCO3 ABG O2 Saturation ABG Base Excess ABG Hemoglobin Oxyhemoglobin Sodium Potassium Chloride Carbon Dioxide BUN 21 H Creatinine 0.5 L Glucose 119 H POC Glucose 130 H 111 H Lactic Acid Calcium 8.3 L Phosphorus Magnesium AST ALT Alkaline Phosphatase Lactate Dehydrogenase Troponin T C-Reactive Protein NT-Pro-B Natriuret Pep Total Protein Albumin LDL Cholesterol Direct Vitamin B12 Crossmatch 12/05/21 12/05/21 12/05/21 05:15 10:40 11:12 WBC RBC 2.98 L Hgb 8.1 L Hct 24.6 L MCV MCH 27 L MCHC RDW 20.8 H Plt Count Seg Neuts % (Manual) Lymphocytes % (Manual) Seg Neutrophils # Man Lymphocytes # (Manual) Monocytes # (Manual) PT INR D-Dimer ABG pH ABG pO2 ABG HCO3 ABG O2 Saturation ABG Base Excess ABG Hemoglobin Oxyhemoglobin Sodium Potassium Chloride Carbon Dioxide BUN Creatinine Glucose POC Glucose 107 H 110 H Lactic Acid Calcium Phosphorus Magnesium AST ALT Alkaline Phosphatase Lactate Dehydrogenase Troponin T C-Reactive Protein NT-Pro-B Natriuret Pep Total Protein Albumin LDL Cholesterol Direct Vitamin B12 Crossmatch 12/05/21 12/06/21 12/06/21 23:39 04:25 04:25 WBC RBC 2.95 L Hgb 7.9 L Hct 24.7 L MCV MCH 27 L MCHC RDW 20.9 H Plt Count Seg Neuts % (Manual) Lymphocytes % (Manual) Seg Neutrophils # Man Lymphocytes # (Manual) Monocytes # (Manual) PT INR D-Dimer ABG pH ABG pO2 ABG HCO3 ABG O2 Saturation ABG Base Excess ABG Hemoglobin Oxyhemoglobin Sodium Potassium Chloride Carbon Dioxide BUN 22 H Creatinine 0.5 L Glucose 136 H POC Glucose 118 H Lactic Acid Calcium 8.2 L Phosphorus Magnesium AST ALT Alkaline Phosphatase Lactate Dehydrogenase Troponin T C-Reactive Protein NT-Pro-B Natriuret Pep Total Protein Albumin LDL Cholesterol Direct Vitamin B12 Crossmatch 12/06/21 12/06/21 12/07/21 05:28 11:27 04:00 WBC RBC Hgb 7.2 L Hct 21.8 L MCV MCH MCHC RDW Plt Count Seg Neuts % (Manual) Lymphocytes % (Manual) Seg Neutrophils # Man Lymphocytes # (Manual) Monocytes # (Manual) PT INR D-Dimer ABG pH ABG pO2 ABG HCO3 ABG O2 Saturation ABG Base Excess ABG Hemoglobin Oxyhemoglobin Sodium Potassium Chloride Carbon Dioxide BUN Creatinine Glucose POC Glucose 142 H 126 H Lactic Acid Calcium Phosphorus Magnesium AST ALT Alkaline Phosphatase Lactate Dehydrogenase Troponin T C-Reactive Protein NT-Pro-B Natriuret Pep Total Protein Albumin LDL Cholesterol Direct Vitamin B12 Crossmatch 12/07/21 12/07/21 12/07/21 04:00 05:30 11:12 WBC RBC Hgb Hct MCV MCH MCHC RDW Plt Count Seg Neuts % (Manual) Lymphocytes % (Manual) Seg Neutrophils # Man Lymphocytes # (Manual) Monocytes # (Manual) PT INR D-Dimer ABG pH ABG pO2 ABG HCO3 ABG O2 Saturation ABG Base Excess ABG Hemoglobin Oxyhemoglobin Sodium Potassium Chloride Carbon Dioxide BUN 22 H Creatinine Glucose 119 H POC Glucose 121 H 124 H Lactic Acid Calcium 8.0 L Phosphorus Magnesium AST ALT Alkaline Phosphatase Lactate Dehydrogenase Troponin T C-Reactive Protein NT-Pro-B Natriuret Pep Total Protein Albumin LDL Cholesterol Direct Vitamin B12 Crossmatch 12/08/21 12/08/21 12/08/21 04:00 04:00 05:39 WBC RBC 2.81 L Hgb 7.7 L Hct 23.5 L MCV MCH MCHC RDW 21.2 H Plt Count Seg Neuts % (Manual) Lymphocytes % (Manual) Seg Neutrophils # Man Lymphocytes # (Manual) Monocytes # (Manual) PT INR D-Dimer ABG pH ABG pO2 ABG HCO3 ABG O2 Saturation ABG Base Excess ABG Hemoglobin Oxyhemoglobin Sodium 135 L Potassium Chloride Carbon Dioxide BUN 23 H Creatinine Glucose 109 H POC Glucose 112 H Lactic Acid Calcium Phosphorus Magnesium AST ALT Alkaline Phosphatase Lactate Dehydrogenase Troponin T C-Reactive Protein NT-Pro-B Natriuret Pep Total Protein Albumin LDL Cholesterol Direct Vitamin B12 Crossmatch 12/08/21 11:03 WBC RBC Hgb Hct MCV MCH MCHC RDW Plt Count Seg Neuts % (Manual) Lymphocytes % (Manual) Seg Neutrophils # Man Lymphocytes # (Manual) Monocytes # (Manual) PT INR D-Dimer ABG pH ABG pO2 ABG HCO3 ABG O2 Saturation ABG Base Excess ABG Hemoglobin Oxyhemoglobin Sodium Potassium Chloride Carbon Dioxide BUN Creatinine Glucose POC Glucose 108 H Lactic Acid Calcium Phosphorus Magnesium AST ALT Alkaline Phosphatase Lactate Dehydrogenase Troponin T C-Reactive Protein NT-Pro-B Natriuret Pep Total Protein Albumin LDL Cholesterol Direct Vitamin B12 Crossmatch Chest x-ray: image reviewed (persistent volume overload picture +/- bilateral effusions) Allied health notes reviewed: nursing
--- NOTE | 2021-12-08 13:29 | XRay Report ---
CHEST 1 VIEW 12/08/2021 11:41 AM INDICATION / CLINICAL INFORMATION: resp failure. COMPARISON: 11/29/2021 FINDINGS: SUPPORT DEVICES: Unchanged. HEART / MEDIASTINUM: Stable. LUNGS / PLEURA: Persistent basilar effusion/volume loss with superimposed opacity edema. Mild interva l improvement. No pneumothorax. ADDITIONAL FINDINGS: No significant additional findings. IMPRESSION: Mild interval improvement. Signer Name: Russel Fishman MD Signed: 12/08/2021 1:25 PM Workstation Name: [id number]
[2021-12-08] MEDS ORDERED: ALPRAZolam 0.25 MG TAB FEEDTUBE PRN (14:33)
[2021-12-08] MEDS ORDERED: HYDROmorphone 1 MG/1 ML INJ IV ONE (15:53)
--- NOTE | 2021-12-08 19:19 | Progress Note ---
Assessment and Plan Assessment and plan: This is a 81-year-old female with known history of diabetes mellitus, hypertension, PPM, and arthritis admitted for sepsis and acute hypoxia respiratory failure 2/2 bilateral pneumonia requiring intubation and ventilatory support Assessment and Plan Neuro : Acute encephalopathy (resolved), agitation/ anxiety -Neurology consulted, appreciate recommendations -CT brain showed no acute events -EEG interpreted as abnormal record due to diffuse slowing noted throughout the recording, suggestive of encephalopathic process and/or drug effect, possibilities of postictal state cannot be totally excluded. Clinical correlation is in order -MRI brain not obtained-> patient has metal in her body -Repeat CT head with no acute findings -Reorientation as needed -Ammonia 42, B12 1823, TSH 1.5 -BuSpar, fentanyl patch, Seroquel, [place] -xanax for anxiety -Gabapentin daily Cardio: Heart failure with reduced EF, h/o chronic heart block s/p PPM, HTN/CAD s/p PCI (2004), Moderate pulmonary HTN, cardiomyopathy -s/p vasopressor support with levophed -11/04 echocardiogram shows EF 30 to 35%, Moderate pulmonary HTN RVSP 49 -Cardiology consulted, appreciate recommendations -Continue beta-charleen and statin therapy -Not on aspirin due to allergy -Blood pressure monitoring per protocol -As needed nitroglycerin Resp: Acute hypoxic respiratory failure secondary to bilateral pneumonia, left pleural effusion. Right pneumothorax (resolved) -COVID-19 PCR negative -Intubated on 11/06 with 6.00 ETT at 18 at the lip and changed over bougie on 11/11-7.50 ETT at 20 at the lip -See RT notes for titration -PSV today -Surgery consult for trach -Received trach/PEG on 11/26 -S/p bedside bronchoscopy on 11/11 complicated by pneumothorax -S/p chest tube placement for right pneumothorax and dislodgment by patient on 11/15 -ABG/CXR per CCM -VAP bundle -Right chest wall ultrasound showed pleural effusion s/p chest tube -SPO2 monitoring -Mucomyst every 8 -Albuterol every 8 GI: S/p GI bleed, duodenal ulcer, transaminitis -GI consulted, appreciate recommendations -Nutrition consult for tube feeding -BR: Senokot, MiraLAX -s/p peg 11/26 -H2 charleen -Carafate -24-hour +953 ml -BM 11/28 -Gastric occult positive : Urinary retention, hyponatremia -Gamble catheter in place -Strict intake and output -Trend BMP ID: Septic shock (POA), bilateral pneumonia, bacteremia -Infectious disease consulted, appreciate recommendations -COVID-19 PCR negative -Presented with fevers, leukocytosis and hypotension -11/04 blood cultures positive with a group B strep bacteremia 12/19 however repeat blood cultures on the with no growth to date -Echo showed no evidence of vegetation -ABX therapy: Ceftriaxone (), vancomycin (11/05, ), clindamycin ), cefepime , ) -Monitor WBC and fever curve -Recultured on 11/11 with NGTD -Bedside bronchoscopy for mucous plug on CXR 11/11 Heme: Acute DVT in the right external iliac vein, common femoral vein, superior aspect of femoral vein, Acute microcytic anemia -Evidenced on bilateral upper lower extremity ultrasound -S/p 5 unit PRBC -Trend CBC -Transfuse for hemoglobin less than 7 -S/p IVC filter Endo: h/o DM and hypothyroidism -Continue home Synthroid -SSI -Accu-Cheks every 6 -Avoid hypoglycemia The high probability of a clinically significant, sudden or life threatening deterioration of the [multi] system(s) required my full and direct attention, intervention and personal management. The aggregate critical care time was [60] minutes. This time is in addition to time spent performing reported procedures but includes the following: [x] Data Review and interpretation [x] Patient assessment and monitoring of vital signs [x] Documentation [x] Medication orders and management Disposition Plan: icu Total Time Spent with Patient (Minutes): 60 History Interval history: This is an 82-year-old female with DM, HTN , PPM and arthritis who presented to the emergency department on 11/04 for shortness of breath ongoing for the past 3 days, cough and according to family a fever of 102.2. Upon arrival of EMS patient was found to be tachypneic and hypoxic with SPO2 of 76% on room air whi ch later improved to 88% on nonrebreather. Work-up in the emergency department included a CXR which showed bilateral interstitial pulmonary edema with bilateral pleural effusions and bibasilar opacities, leukocytosis and anemia with a hemoglobin of 6.1. Patient was admitted to the hospitalist service with acute anemia, acute hypoxic respiratory failure, bilateral pneumonia and COVID- 19 PUI with consults to pulmonology, infectious disease and later cardiology. Patient was eventually intubated in the emergency department on 11/06. Hospital Course to date: 11/04/2021: Empiric therapy with iv levaquin/vancomycin. COVID PCR pending. Will consult ID. PCCM consulted, will follow recs. Hypotensive this AM, ordered bolus and fluids at 150 cc/hr. May require pressor support if bp does not improve. 11/05/2021: GBS on bcx +, currently on rocephin IV. Currently on bipap due to respiratory distress overnight. Worsening BL opacities on CXR. May be volume overload vs pneumonia. Unfortunately bp too low for lasix at this point. WIll continue levophed and bipap. Once able to tolerate, may do trial of albumin/lasix. Call attempt made to Niraj, no response. Will try again tomorrow to update. 11/06/2021: Decompensated overnight requiring intubation. CXR shows worsening interstitial infiltrates. Currenlty on dopamine, levophed, vasopressin. PICC line ordered. Advised RN to place gamble for I/O monitoring. Would benefit from diuresis but very volume overloaded. Prognosis guarded 11/08: Off sedation this am, remains unresponsive only grimace to pain. Hold all sedatives agents for now, patient is off pressors this am. Hypernatremia from today's lab- D5W X1bag, and low K repleted, repeat lab in the am. Severe constipation also noted from KUB, BR added. 11/09: Sudden SPO2 drop in the 60s this am. Patient was manually bagged and deep suctioned. Patient is currently stable on the vent, repeat CXR with no significant change. D/w CCM Mucomyst and brochodilator added. Patient mentation is unchanged, continue to hold off on sedative agents. Neurology consulted. 11/10: Acute DVT noted on bilateral lower extremity Doppler ultrasound therefore she was started on Lovenox treatment dose. Failed SBT. Hypernatremia and hyperchloremia noted, free water flush adjusted. 11/11: Patient noted to be febrile with increasing of the cytosis, UA/BC sent and CXR ordered. ID escalated antibiotics to cefepime. CXR demonstrated mucous plug, bedside bronchoscopy was performed and O ETT was changed over bougie from 6 cm to 7.5. Patient was noted to have a pneumothorax postprocedure and chest tube was placed. Family updated by [facility]. Free water flush increased and will add Jaswant supplementation. 11/12: Patient not noted to follow commands, hypernatremia worsen/persist, increasing free water flush, potassium and magnesium and phosphorus repleted. Hemoglobin noted to be 7.1/24.5 from 7.03/12 yesterday. We will continue to trend and monitor. Vent changes per [facility]. Repeat CXR showed no residual pneumothorax. Consider waterseal tomorrow. Given persistent leukocytosis antibiotics escalated to cefepime per ID. 11/13: Remains on cefepime and vancomycin, vent changes per [facility]. Anemia noted and given 1 unit PRBC. And beta-charleen held in setting of Levophed drip infusing. Remains on fentanyl drip. 11/14: Patient put on CPAP trial by [facility], will continue chest tube until after extubation. Will rest on assist control. CT brain was cancelled by director of radio services and reordered. 11/15: Patient removed chest tube overnight. Will obtain cxr. remains on low dose levo. CTH completed with no acute findings. RT to place on CPAP. 11/16: Hypernatremia/hyperchloremia noted on the increase of day water flushes. Anemia noted and ordered PRBC. asked RT to place on cpap but not done yet 11/17: Patient remains on the vent, awake and following commands. H&H stable s/p 2units PRBCs. GI on consult, no intervention at this time. Will continue protonix gtt and serial H&H Q6hrs. Keep patient NPO for now, D5w added for hypernatremia and NPO status. Plan for IVC filter placement today by Vascular. 11/18: Patient is s/p IVC filter. H&H continue to trend down, hbg 6.1 this am, 1 unit of PRBCs ordered. Plan for possible EGD today by GI. Keep patient NPO, continue PPI drip and serial H&H Q6hrs. Electrolytes repleted, repeat lab in the am 11/19: S/p EGD- larger duodenal ulcer noted, see operative note. GI recommendations noted also noted. H&H stable this am. Keep patient on protonix gtt for now. Will keep patient NPO, continue IVF and serial H&H for now. Electrolytes repleted, repeat labs in the am 11/20: Very agitated and restless this am, fentanyl gtt resumed. Patient remains on protonix gtt, H&H remains stable. Will switch protonix gtt to IV BID, continue carafate and okay to resume meds at this time. Will F/u with GI to see if TF can be resumed. Gamble was reinserted overnight for retention. Electrolytes repleted, repeat in the am. Plan for possible PST today for possible extubation per [facility]. 11/21: Patient is now on seroquel and patient's home buspar resumed. Patient more calm this morning, fentanyl gtt is off. H&H remains stable and patient is tolerating TF. Patient had a runs of Vtach/PVCs this am, BB added per Cardio. Continue daily PS and wean trial for possible extubation. 11/22: Back on fentanyl gtt overnight , RASS o to -1, following commands. Patient failed PST this am due to increased work of breathing and low SPO2, ABG pending. Patient is also with worsen pitting edema, lasix is still on hold. Will discuss with cardio and CCM to possibly resume lasix. 11/23: MARIA DEL CARMEN overnight. Patient failed PST again this am. Per CCM plan for possible trach and PEG, hold off on IV lasix for now. General surgery consulted and family is aware of possible Trach and PEG. 11/24: Trach/PEG pending this week, continue SBT/SAT as tolerated. No acute events reported overnight. 11/25: Patient was n.p.o. overnight and will remain n.p.o. tonight for trach/PEG tomorrow morning. She failed to support trial again. KUB obtained due to distended belly. 11/26: Patient scheduled for tracheostomy and PEG tube placement today, has been n.p.o. since midnight. No acute events reported overnight. [facility] ordered simethicone scheduled. 11/27: No acute events reported overnight, patient received trach/PEG yesterday. Has been on feedings since last night. Still awaiting LTAC placement. 11/28: Patient magnesium repleted, repeat a.m. labs, SBT 11/29: Patient complains of chest pain but ECG obtained which showed no acute findings, ordered troponin. Patient failed CPAP yesterday and was trialed again today. levophed was restarted but will aggressively wean 11/30: Patient failed SBT. Continue supportive care. Started gabapentin today 12/01: MARIA DEL CARMEN overnight. Continue daily PST. Case management to arrange possible placement 12/02: Report of dark stools overnight, patient is hemodynamically stable. H&H stable, patient is on PPI. Will continue to trend H&H. Continue daily PST as tolerated. Awaiting LTAC vs SNF placement. 12/03: Hypotensive overnight, requiring low dose pressors. S/p X3 days of gentle diurese. Will continue to monitor, wean off pressors as tolerated for MAP of 65. Patient Failed PST yesterday, case management to follow up with insurance for possible LTAC placement. Continue daily PST as tolerated. PT eval and treat ordered. 12/04: Increased agitation and anxiety overnight, remains on buspar and seroquel, trazadone added to promote rest. Patient is now working with PT, keep patient engage and awake during the day so she can rest at night. No BM for over 5 days, BR was adjusted. Patient did not tolerate PST again yesterday, continue daily PST as tolerated. Continue to titrate pressor for MAP above 65. Pending possible LTAC placement, case management to arrange. 12/05: Still not getting much rest overnight, will add melatonin for sleep. Continue to engage patient during the day and promote rest at night. TF was held due to concern for possible bleeding, H&H remains stable and stools normal this am. Resume TF and continue PPI and carafate. Remains on low dose levophed, titrate as tolerated. Continue daily PST. Possible LTAC placement, awaiting approval. 12/06: MARIA DEL CARMEN overnight. Patient rested overnight. Continue supportive measures. Daily PST as tolerated. Awaiting possible LTAC placement 12/07: MARIA DEL CARMEN overnight. Plan for Tpiece trial today. Continue current supportive measures. Possible LTAC placement 12/08: Patient placed on pressure support trial again today, started on Xanax, no acute events reported overnight. Awaiting insurance approval for LTAC. Hospitalist Physical - Constitutional Vitals: Temp Pulse Resp BP Pulse Ox 97.5 F L 69 15 122/52 99 12/08/21 16:00 12/08/21 18:30 12/08/21 18:30 12/08/21 18:30 12/08/21 18:30 General appearance: Present: no acute distress, other (Trah and on the vent) - EENT Eyes: Present: PERRL, EOM intact ENT: dentition normal - Neck Neck: Present: normal ROM - Respiratory Respiratory effort: normal Respiratory: bilateral: diminished - Cardiovascular Rhythm: regular Heart Sounds: Present: S1 & S2. Absent: systolic murmur, diastolic murmur - Extremities Extremities: no ischemia, pulses intact, pulses symmetrical, No edema, normal temperature, normal color Peripheral Pulses: within normal limits - Abdominal General gastrointestinal: soft, non-tender, non-distended, normal bowel sounds - Integumentary Integumentary: Present: warm, dry - Psychiatric Psychiatric: cooperative, agitated - Neurologic Neurologic: CNII-XII intact, no focal deficits, moves all extremities - Allied Health Allied health notes reviewed: nursing, RT, social work HEART Score - HEART Score Troponin: Troponin T 0.045 ng/mL (0.00-0.029) H 11/29/21 20:15 Results - Labs CBC & Chem 7: 12/08/21 04:00 12/08/21 04:00 Labs: Laboratory Last Values WBC 8.2 K/mm3 (4.5-11.0) 12/08/21 04:00 RBC 2.81 M/mm3 (3.65-5.03) L 12/08/21 04:00 Hgb 7.7 gm/dl (10.1-14.3) L 12/08/21 04:00 Hct 23.5 % (30.3-42.9) L 12/08/21 04:00 MCV 84 fl (79-97) 12/08/21 04:00 MCH 28 pg (28-32) 12/08/21 04:00 MCHC 33 % (30-34) 12/08/21 04:00 RDW 21.2 % (13.2-15.2) H 12/08/21 04:00 Plt Count 201 K/mm3 (140-440) 12/08/21 04:00 Add Manual Diff Complete 11/16/21 15:25 Total Counted 100 11/16/21 15:25 Seg Neutrophils % Music Writer 11/06/21 15:50 Seg Neuts % (Manual) 87.0 % (40.0-70.0) H 11/16/21 15:25 Band Neutrophils % 0 % 11/16/21 15:25 Lymphocytes % (Manual) 8.0 % (13.4-35.0) L 11/16/21 15:25 Reactive Lymphs % (Man) 0 % 11/16/21 15:25 Monocytes % (Manual) 5.0 % (0.0-7.3) 11/16/21 15:25 Eosinophils % (Manual) 0 % (0.0-4.3) 11/16/21 15:25 Basophils % (Manual) 0 % (0.0-1.8) 11/16/21 15:25 Metamyelocytes % 0 % 11/16/21 15:25 Myelocytes % 0 % 11/16/21 15:25 Promyelocytes % 0 % 11/16/21 15:25 Blast Cells % 0 % 11/16/21 15:25 Nucleated RBC % Not Reportable 11/16/21 15:25 Seg Neutrophils # Man 15.0 K/mm3 (1.8-7.7) H 11/16/21 15:25 Band Neutrophils # 0.0 K/mm3 11/16/21 15:25 Lymphocytes # (Manual) 1.4 K/mm3 (1.2-5.4) 11/16/21 15:25 Abs React Lymphs (Man) 0.0 K/mm3 11/16/21 15:25 Monocytes # (Manual) 0.9 K/mm3 (0.0-0.8) H 11/16/21 15:25 Eosinophils # (Manual) 0.0 K/mm3 (0.0-0.4) 11/16/21 15:25 Basophils # (Manual) 0.0 K/mm3 (0.0-0.1) 11/16/21 15:25 Metamyelocytes # 0.0 K/mm3 11/16/21 15:25 Myelocytes # 0.0 K/mm3 11/16/21 15:25 Promyelocytes # 0.0 K/mm3 11/16/21 15:25 Blast Cells # 0.0 K/mm3 11/16/21 15:25 WBC Morphology Not Reportable 11/16/21 15:25 Hypersegmented Neuts Not Reportable 11/16/21 15:25 Hyposegmented Neuts Not Reportable 11/16/21 15:25 Hypogranular Neuts Not Reportable 11/16/21 15:25 Smudge Cells Not Reportable 11/16/21 15:25 Toxic Granulation Not Reportable 11/16/21 15:25 Toxic Vacuolation Not Reportable 11/16/21 15:25 Dohle Bodies Not Reportable 11/16/21 15:25 Pelger-Huet Anomaly Not Reportable 11/16/21 15:25 Irina Rods Not Reportable 11/16/21 15:25 Platelet Estimate Consistent w auto 11/16/21 15:25 Clumped Platelets Rare 11/16/21 15:25 Plt Clumps, EDTA Not Reportable 11/16/21 15:25 Large Platelets Not Reportable 11/16/21 15:25 Giant Platelets Not Reportable 11/16/21 15:25 Platelet Satelliting Not Reportable 11/16/21 15:25 Plt Morphology Comment Not Reportable 11/16/21 15:25 RBC Morphology Not Reportable 11/16/21 15:25 Dimorphic RBCs Not Reportable 11/16/21 15:25 Polychromasia Not Reportable 11/16/21 15:25 Hypochromasia 2+ 11/16/21 15:25 Poikilocytosis Not Reportable 11/16/21 15:25 Anisocytosis 2+ 11/16/21 15:25 Microcytosis Not Reportable 11/16/21 15:25 Macrocytosis Not Reportable 11/16/21 15:25 Spherocytes Not Reportable 11/16/21 15:25 Pappenheimer Bodies Not Reportable 11/16/21 15:25 Sickle Cells Not Reportable 11/16/21 15:25 Target Cells 2+ 11/16/21 15:25 Tear Drop Cells Not Reportable 11/16/21 15:25 Ovalocytes Not Reportable 11/16/21 15:25 Helmet Cells Not Reportable 11/16/21 15:25 [place] Bodies Not Reportable 11/16/21 15:25 [place] Rings Not Reportable 11/16/21 15:25 Malcom Cells Not Reportable 11/16/21 15:25 Bite Cells Not Reportable 11/16/21 15:25 Crenated Cell Not Reportable 11/16/21 15:25 Elliptocytes Not Reportable 11/16/21 15:25 Acanthocytes (Spur) Not Reportable 11/16/21 15:25 Rouleaux Not Reportable 11/16/21 15:25 Hemoglobin C Crystals Not Reportable 11/16/21 15:25 Schistocytes Not Reportable 11/16/21 15:25 Malaria parasites Not Reportable 11/16/21 15:25 Godfrey Bodies Not Reportable 11/16/21 15:25 Hem Pathologist Commnt No 11/16/21 15:25 PT 16.9 Sec. (12.2-14.9) H 11/26/21 05:00 INR 1.24 (0.87-1.13) H 11/26/21 05:00 APTT 29.2 Sec. (24.2-36.6) 11/26/21 05:00 D-Dimer 2655.00 ng/mlDDU (0-234) H 11/11/21 04:28 ABG pH 7.449 pH Units (7.350-7.450) 11/21/21 16:00 ABG pCO2 32.1 mm Hg 11/21/21 16:00 ABG pO2 114.2 mm Hg (80.0-90.0) H 11/21/21 16:00 ABG HCO3 21.8 mmol/L (20.0-26.0) 11/21/21 16:00 ABG O2 Saturation 98.3 % (95.0-99.0) 11/21/21 16:00 ABG O2 Content 12.5 (0.0-44) 11/21/21 16:00 ABG Base Excess -1.7 mmol/L (-2.0-3.0) 11/21/21 16:00 ABG Hemoglobin 9.1 gm/dl (12.0-16.0) L 11/21/21 16:00 ABG Carboxyhemoglobin 1.9 % (0.0-5.0) 11/21/21 16:00 ABG Methemoglobin 0.5 % (0.0-1.5) 11/21/21 16:00 Oxyhemoglobin 96.0 % (95.0-99.0) 11/21/21 16:00 FiO2 30 % 11/21/21 16:00 Sodium 135 mmol/L (137-145) L 12/08/21 04:00 Potassium 4.3 mmol/L (3.6-5.0) 12/08/21 04:00 Chloride 98.3 mmol/L (98-107) 12/08/21 04:00 Carbon Dioxide 27 mmol/L (22-30) 12/08/21 04:00 Anion Gap 14 mmol/L 12/08/21 04:00 BUN 23 mg/dL (7-17) H 12/08/21 04:00 Creatinine 0.6 mg/dL (0.6-1.2) 12/08/21 04:00 Estimated GFR > 60 ml/min 12/08/21 04:00 BUN/Creatinine Ratio 38 % 12/08/21 04:00 Glucose 109 mg/dL (65-100) H 12/08/21 04:00 POC Glucose 92 mg/dL (70-105) 12/08/21 16:44 Lactic Acid 3.70 mmol/L (0.7-2.0) H* 11/03/21 22:32 Calcium 8.4 mg/dL (8.4-10.2) 12/08/21 04:00 Phosphorus 3.50 mg/dL (2.5-4.5) 12/08/21 04:00 Magnesium 2.20 mg/dL (1.7-2.3) 12/08/21 04:00 Ferritin 52.6 ng/mL (10.0-200.0) 11/05/21 06:11 Total Bilirubin 0.50 mg/dL (0.1-1.2) 11/17/21 05:56 Direct Bilirubin < 0.2 mg/dL (0-0.2) 11/11/21 04:28 Indirect Bilirubin 0.1 mg/dL 11/11/21 04:28 AST 36 units/L (5-40) 11/17/21 05:56 ALT 47 units/L (7-56) 11/17/21 05:56 Alkaline Phosphatase 107 units/L (35-129) 11/17/21 05:56 Ammonia 42.0 umol/L (25-60) 11/10/21 14:08 Lactate Dehydrogenase 187 units/L (91-180) H 11/05/21 06:11 Troponin T 0.045 ng/mL (0.00-0.029) H 11/29/21 20:15 C-Reactive Protein 22.20 mg/dL (0.00-1.30) H 11/05/21 06:11 NT-Pro-B Natriuret Pep 7895 pg/mL (0-900) H 11/03/21 22:32 Total Protein 5.1 g/dL (6.3-8.2) L 11/17/21 05:56 Albumin 2.2 g/dL (3.9-5) L 11/17/21 05:56 Albumin/Globulin Ratio 0.8 % 11/17/21 05:56 Triglycerides 59 mg/dL (2-149) 11/29/21 20:15 Cholesterol 74 mg/dL (50-199) 11/29/21 20:15 LDL Cholesterol Direct 25 mg/dL (50-130) L 11/29/21 20:15 HDL Cholesterol 41 mg/dL (40-59) 11/29/21 20:15 Cholesterol/HDL Ratio 1.80 % 11/29/21 20:15 Vitamin B12 1823 pg/mL (211-911) H 11/10/21 14:08 TSH 1.510 mlU/mL (0.270-4.200) 11/10/21 14:08 Urine Color Yellow (Yellow) 11/11/21 09:00 Urine Turbidity Slightly-cloudy (Clear) 11/11/21 09:00 Urine pH 5.0 (5.0-7.0) 11/11/21 09:00 Ur Specific [place] 1.009 (1.003-1.030) 11/11/21 09:00 Urine Protein <15 mg/dl mg/dL (Negative) 11/11/21 09:00 Urine Glucose (UA) Neg mg/dL (Negative) 11/11/21 09:00 Urine Ketones Neg mg/dL (Negative) 11/11/21 09:00 Urine Blood Mod (Negative) 11/11/21 09:00 Urine Nitrite Neg (Negative) 11/11/21 09:00 Urine Bilirubin Neg (Negative) 11/11/21 09:00 Urine Urobilinogen < 2.0 mg/dL (<2.0) 11/11/21 09:00 Ur Leukocyte Esterase Neg (Negative) 11/11/21 09:00 Urine WBC (Auto) < 1.0 /HPF (0.0-6.0) 11/11/21 09:00 Urine RBC (Auto) < 1.0 /HPF (0.0-6.0) 11/11/21 09:00 Coronavirus (PCR) Negative (Negative) 11/10/21 08:30 Blood Type O POSITIVE 11/18/21 10:45 Antibody Screen Negative 11/18/21 10:45 Crossmatch See Detail 11/18/21 10:45 Gamble/IV: Voiding Method Indwelling Catheter Active Medications - Current Medications Current Medications: Generic Name Dose Route Start Last Admin Trade Name Freq PRN Reason Stop Dose Admin Hydrocodone Bitart/Acetaminophen 1 each 11/21/21 10:00 12/08/21 14:43 Hydrocodone/Acetaminophen 10-325mg Tab FEEDTUBE 1 each TID YOSSI Administration Alprazolam 0.25 mg 12/08/21 14:33 12/08/21 14:44 Alprazolam 0.25 Mg Tab FEEDTUBE 0.25 mg Q8H PRN Administration Anxiety Lipase/Protease/Amylase 1 each 11/08/21 11:09 Lipase 10,500/Protease 25,000/Amylase 43,750 (Units) Dr Lema FEEDTUBE PRN PRN For Clogged Feeding Tube Buspirone HCl 7.5 mg 11/17/21 22:00 12/08/21 09:53 Buspirone 5 Mg Tab PO 7.5 mg BID YOSSI Administration Dextrose 0 ml 11/10/21 10:52 11/21/21 16:27 Dextrose 10% *Hypoglycemia IV 50 ml PRN PRN Administration Hypoglycemia Docusate Sodium 100 mg 12/04/21 11:00 12/08/21 09:54 Docusate Sodium 100 Mg/10 Ml Oral Liqd PO 100 mg BID YOSSI Administration Fentanyl 1 applic 11/17/21 13:00 12/08/21 09:54 Fentanyl 25 Mcg/Hr Patch 72hr TD 1 applic Q3D YOSSI Administration Gabapentin 100 mg 12/01/21 10:00 12/08/21 09:53 Gabapentin 100 Mg Cap PO 100 mg QDAY YOSSI Administration Hydrophilic Ointment 1 applic 11/06/21 04:02 Lip Therapy Vaseline TP Q2HR PRN Dry Lips NORepinephrine/NS 8 MG-250 ML 8 mg in 250 mls @ 3.75 mls/hr 11/29/21 00:00 12/07/21 06:35 Norepinephrine/Ns 8 Mg-250 Ml (Double Conc) IV 0 mcg/min TITRATE YOSSI 0 mls/hr Titration Protocol 2 MCG/MIN Lansoprazole 30 mg 11/24/21 22:00 12/08/21 09:54 Lansoprazole 30 Mg Solutab FEEDTUBE 30 mg BID YOSSI Administration Levothyroxine Sodium 125 mcg 11/05/21 07:00 12/08/21 05:18 Levothyroxine 125 Mcg Tab PO 125 mcg DAILY@0600 YOSSI Administration Melatonin 5 mg 12/05/21 22:00 12/07/21 21:47 Melatonin 5 Mg Tab PO 5 mg QHS [facility] Administration Metoprolol Tartrate 12.5 mg 11/21/21 10:00 12/08/21 10:50 Metoprolol Tartrate 25 Mg Tab PO 12.5 mg BID [facility] Administration Multi-Ingred Cream/Lotion/Oil/Oint 1 applic 11/06/21 04:02 Mineral Oil/Petrolatum, White Ophth Oint 3.5 Gm OU Q4HR PRN Dry Eye(s) Nitroglycerin 0.4 mg 11/30/21 11:36 Nitroglycerin 0.4 Mg Tab Subl SL .Q5MIN PRN Chest Pain Ondansetron HCl 4 mg 12/05/21 10:00 12/08/21 05:17 Ondansetron 4 Mg/2 Ml Inj IV 4 mg Q8H PRN Administration Nausea And Vomiting Polyethylene Glycol 17 gm 12/02/21 10:00 12/08/21 09:54 Polyethylene Glycol 3350 17 Gm Powder PO 17 gm QDAY YOSSI Administration Pravastatin Sodium 20 mg 11/18/21 22:00 12/07/21 21:47 Pravastatin 20 Mg Tab PO 20 mg QHS [facility] Administration Quetiapine Fumarate 50 mg 12/01/21 22:00 12/07/21 21:48 Quetiapine 25 Mg Tab PO 50 mg QHS [facility] Administration Senna 17.6 mg 11/08/21 22:00 12/08/21 09:54 Sennosides Oral Liqd 8.8 Mg/5 Ml Oral Liqd PO 17.6 mg Q12HR YOSSI Administration Simple Syrup 15 ml 11/08/21 11:09 Simple Syrup 15 Ml FEEDTUBE PRN PRN Hypoglycemia Simple Syrup 30 ml 11/08/21 11:09 Simple Syrup 15 Ml FEEDTUBE PRN PRN Hypoglycemia Sodium Bicarbonate 325 mg 11/08/21 11:09 Sodium Bicarbonate 325 Mg Tab FEEDTUBE PRN PRN For Clogged Feeding Tube Sodium Chloride 10 ml 11/04/21 10:00 12/08/21 09:55 Sodium Chloride 0.9% 10 Ml Flush Syringe IV 10 ml BID YOSSI Administration Sodium Chloride 10 ml 11/04/21 02:03 Sodium Chloride 0.9% 10 Ml Flush Syringe IV PRN PRN LINE FLUSH Sodium Chloride 10 ml 11/10/21 09:57 11/17/21 20:47 Sodium Chloride 0.9% 50 Ml Ivpb IV 10 ml PRN PRN Administration FLUSH Sucralfate 1 gm 11/18/21 16:30 12/08/21 17:05 Sucralfate 1 Gm/10 Ml Oral Liqd PO 1 gm ACHS YOSSI Administration Trazodone HCl 50 mg 12/04/21 22:00 12/07/21 21:47 Trazodone 50 Mg Tab PO 50 mg QHS YOSSI Administration Nutrition/Malnutrition Assess - Dietary Evaluation Nutrition/Malnutrition Findings: Nutrition Notes Start: 11/04/21 17:16 Freq: Status: Active Protocol: Document 12/08/21 10:17 YOVANI (Rec: 12/08/21 10:27 [facility] [id number]) Nutrition Notes Initial or Follow up Reassessment Current Diagnosis Diabetes,Hypertension,Heart Failure,Respiratory Failure Other Pertinent Diagnosis Bilat pneu, acute GIB Current Diet TF - Vital AF 1.2 at 40ml/hr Labs/Tests Na 135 BUN 23 H/H 7.7/23.5 Pertinent Medications Colace, Miralax Height 5 ft Weight 62.4 kg [place] Body Weight (kg) 45.45 BMI 26.9 Weight Status Appropriate Subjective/Other Information Trach and PEG placed on 11/26. Pt remains on vent support. BM x 1 on yesterday; previous report of no BM x 5 days on . Pt tolerating TF. Percent of energy/protein needs met: 95% energy 96% pro Burn Absent Trauma Absent #1 Nutrition Diagnosis Inadequate oral intake Diagnosis Progress(for reassessment Continues documentation) Is patient on ventilator? Yes Is Patient Ambulatory and/or Out of Bed No REE-([facility]-confined to bed) [phone] Calculation Used for Recommendations [facility] Additional Notes Pro needs 1.2-2g/k-125g/ day Fluid needs 1ml/kcal Nutrition Intervention Nutrition Support: Continue Vital AF 1.2 at 40ml/ hr. Provide 65ml water flush q4h. Kcal 1,152 Protein (gm) 72 Carbohydrates (gm) 106 Fat (gm) 52 Fluid (mL) 779 Fiber (gm) 5 Goal #1 TF tolerance Goal #2 TF to meet at least 75% energy and pro needs Follow-Up By: 12/15/21 Additional Comments F/U: stable TF, vent status, wt
[2021-12-08] MEDS: HYDROmorphone 1 MG/1 ML INJ IV PRN (20:29)
[2021-12-08] MEDS: PRAVASTATIN 20 MG TAB PO SCH (21:34)
[2021-12-08] MEDS: QUEtiapine 25 MG TAB PO SCH (21:34)
[2021-12-08] MEDS: traZODone 50 MG TAB PO SCH (21:34)
[2021-12-08] MEDS: MELATONIN 5 MG TAB PO SCH (21:35)
[2021-12-09] MEDS: HYDROmorphone 1 MG/1 ML INJ IV PRN ×3 (04:20→21:21)
[2021-12-09 04:49] LABS: Hematocrit 22.1 % (30.3-42.9); Hemoglobin 7.6 gm/dl (10.1-14.3); Mean Corpuscular HGB Conc 34 % (30-34); Mean Corpuscular Volume 83 fl (79-97); Platelet Count 175 K/mm3 (140-440); Red Blood Count 2.67 M/mm3 (3.65-5.03)
[2021-12-09 04:58] LABS: Red Cell Distribution Width 20.8 % (13.2-15.2)
[2021-12-09 05:14] LABS: Blood Urea Nitrogen 26 mg/dL (7-17); Calcium 7.7 mg/dL (8.4-10.2); Hemolysis Index 0
[2021-12-09 05:15] LABS: BUN/Creatinine Ratio 37
[2021-12-09] MEDS: LEVOTHYROXINE 125 MCG TAB PO SCH (06:11)
[2021-12-09] MEDS: HYDROcodone/ACETAMINOPHEN 10-325MG TAB FEEDTUBE SCH ×3 (08:27→21:20)
[2021-12-09] MEDS: SUCRALFATE 1 GM/10 ML ORAL LIQD PO SCH ×4 (08:27→21:20)
[2021-12-09] MEDS: ALPRAZolam 0.5 MG TAB PO SCH ×2 (08:28→17:50)
[2021-12-09] MEDS: MIDODRINE 5 MG TAB PO SCH ×3 (08:29→17:51)
--- NOTE | 2021-12-09 09:51 | Progress Note ---
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e (Called insurance company for peer discussion and her LTAC transfer was denied due to "hemodynamic instability" despite my explaining that she has only intermittently required 2 nicole's/min of Levophed and also that she can be easily managed at the LTAC which also treats critically ill patients) - follow US chest - continue gentle diuresis - continue Midodrine - placed on t-piece trial today but failed after 10-15 mins with increased work of breathing - continue daily SAT and SBT assessment as tolerated - LTAC evaluation ongoing - no new issues otherwise, continue care as below; - prn Levophed for target MAP > 65 mmHg - continue to wean supplemental oxygen for target O2 sat's > 90% acutely - VAP bundle addressed - continue lung protective strategies - continue bronchodilators with routine trach care and pulmonary hygiene per RT - wean per pulmonary driven protocols otherwise - avoid nephrotoxins, renally dose all medications - continue accuchecks with glycemic control per SSI (While critically ill target blood glucose of 140-180 mg/dL; avoid hypoglycemia) - sedation prn for target RASS 0 to -1 - antibiotics per ID recommendations - continue to avoid benzodiazepine's, reduce the possibility of delirium - prn analgesia per CPOT score - Maintenance of sleep-wake cycle, avoid delirium - continue enteral nutritional support at goal rate as tolerated - G.I. & VTE prophylaxis - PT/OT/ROM exercises - continue mobility protocols for pressure ulcer prophylaxis - Monitor hemodynamics closely - continue other care per attending / other consultants - discharge planning ongoing concurrently COVID SPECIFIC INTERVENTIONS - COVID-19 PCR negative .... Re-evaluate in am & prn CONDITION: CRITICAL PROGNOSIS: GUARDED CODE STATUS: FULL CODE The high probability of a clinically significant, sudden or life-threatening deterioration of the [respiratory, cardiovascular & neurologic] system(s) required my full and direct attention, intervention and personal management. The aggregate critical care time was [34] minutes without overlap. Time includes spent on; [x] Data Review and interpretation [x] Patient assessment and monitoring of vital signs [x] Documentation [x] Medication orders and management Subjective Date of service: 12/09/21 Principal diagnosis: Septic shock; AHRF; Anemia; Pneumonia; L. pleural effusion; HFrEF; Pulm HTN Interval history: Patient is seen today for: Septic shock; Acute hypoxemic respiratory failure; Anemia; Bilateral pneumonia; Left pleural effusion; HFrEF 30-35%; Pulm HTN RVSP 49 Seen and examined at bedside; 24hour events reviewed; nursing and respiratory care staff consulted; no adverse overnight events reported to me; resting in bed; remains on MVS; still weaning tenuously but on PSV with p-supp @ 14; nods head "yes" to pain question; denies N/V/F/C; tolerating diuresis well so far Objective Vital Signs - 12hr 12/08/21 12/08/21 12/08/21 22:01 22:15 22:31 Temperature Pulse Rate 60 60 60 Pulse Rate [ From Monitor] Respiratory 14 14 14 Rate Blood Pressure 104/33 104/33 96/18 O2 Sat by Pulse 99 97 96 Oximetry O2 Sat by Pulse Oximetry [ Assessment] 12/08/21 12/08/21 12/08/21 22:45 23:01 23:15 Temperature Pulse Rate 60 60 60 Pulse Rate [ From Monitor] Respiratory 14 14 14 Rate Blood Pressure 96/18 99/31 99/31 O2 Sat by Pulse 96 98 97 Oximetry O2 Sat by Pulse Oximetry [ Assessment] 12/08/21 12/08/21 12/09/21 23:31 23:45 00:00 Temperature 98.6 F Pulse Rate 60 61 62 Pulse Rate [ 70 From Monitor] Respiratory 14 14 15 Rate Blood Pressure 97/32 97/32 104/35 O2 Sat by Pulse 99 97 98 Oximetry O2 Sat by Pulse Oximetry [ Assessment] 12/09/21 12/09/21 12/09/21 00:10 00:15 00:30 Temperature Pulse Rate 62 62 64 Pulse Rate [ From Monitor] Respiratory 14 14 Rate Blood Pressure 104/35 104/35 105/35 O2 Sat by Pulse 97 97 98 Oximetry O2 Sat by Pulse Oximetry [ Assessment] 12/09/21 12/09/21 12/09/21 00:45 01:00 01:15 Temperature Pulse Rate 65 62 61 Pulse Rate [ From Monitor] Respiratory 14 13 14 Rate Blood Pressure 105/35 104/37 104/37 O2 Sat by Pulse 96 98 98 Oximetry O2 Sat by Pulse Oximetry [ Assessment] 12/09/21 12/09/21 12/09/21 01:30 01:45 02:00 Temperature Pulse Rate 63 62 63 Pulse Rate [ From Monitor] Respiratory 14 14 14 Rate Blood Pressure 102/36 102/36 89/44 O2 Sat by Pulse 98 99 100 Oximetry O2 Sat by Pulse Oximetry [ Assessment] 12/09/21 12/09/21 12/09/21 02:15 02:30 02:45 Temperature Pulse Rate 62 64 65 Pulse Rate [ From Monitor] Respiratory 14 14 14 Rate Blood Pressure 89/44 113/44 113/44 O2 Sat by Pulse 98 100 99 Oximetry O2 Sat by Pulse Oximetry [ Assessment] 12/09/21 12/09/21 12/09/21 03:00 03:15 03:30 Temperature Pulse Rate 65 66 63 Pulse Rate [ From Monitor] Respiratory 14 14 14 Rate Blood Pressure 110/45 110/45 105/41 O2 Sat by Pulse 100 97 98 Oximetry O2 Sat by Pulse Oximetry [ Assessment] 12/09/21 12/09/21 12/09/21 03:45 04:00 04:01 Temperature 98.5 F Pulse Rate 65 60 76 Pulse Rate [ 70 From Monitor] Respiratory 14 22 10 L Rate Blood Pressure 105/41 116/77 O2 Sat by Pulse 96 99 99 Oximetry O2 Sat by Pulse Oximetry [ Assessment] 12/09/21 12/09/21 12/09/21 04:15 04:22 04:23 Temperature Pulse Rate 76 74 Pulse Rate [ From Monitor] Respiratory 21 Rate Blood Pressure 116/77 116/77 O2 Sat by Pulse 97 100 Oximetry O2 Sat by Pulse 100 Oximetry [ Assessment] 12/09/21 12/09/21 12/09/21 04:31 04:45 05:00 Temperature Pulse Rate 76 69 71 Pulse Rate [ From Monitor] Respiratory 21 14 14 Rate Blood Pressure 110/26 110/26 111/44 O2 Sat by Pulse 78 L 84 93 Oximetry O2 Sat by Pulse Oximetry [ Assessment] 12/09/21 12/09/21 12/09/21 05:15 05:30 05:45 Temperature Pulse Rate 68 72 68 Pulse Rate [ From Monitor] Respiratory 14 14 14 Rate Blood Pressure 111/44 110/44 110/44 O2 Sat by Pulse 94 94 92 Oximetry O2 Sat by Pulse Oximetry [ Assessment] 12/09/21 12/09/21 12/09/21 06:00 06:15 06:30 Temperature Pulse Rate 67 70 68 Pulse Rate [ From Monitor] Respiratory 14 14 14 Rate Blood Pressure 104/41 104/41 114/47 O2 Sat by Pulse 94 92 93 Oximetry O2 Sat by Pulse Oximetry [ Assessment] 12/09/21 12/09/21 12/09/21 06:45 07:00 07:15 Temperature Pulse Rate 74 67 66 Pulse Rate [ From Monitor] Respiratory 14 14 14 Rate Blood Pressure 114/47 105/45 105/45 O2 Sat by Pulse 95 94 93 Oximetry O2 Sat by Pulse Oximetry [ Assessment] 12/09/21 12/09/21 12/09/21 07:30 07:45 08:00 Temperature 98 F Pulse Rate 68 66 68 Pulse Rate [ 81 From Monitor] Respiratory 14 14 14 Rate Blood Pressure 112/47 112/47 115/51 O2 Sat by Pulse 95 93 94 Oximetry O2 Sat by Pulse 99 Oximetry [ Assessment] 12/09/21 12/09/21 12/09/21 08:10 08:15 08:31 Temperature Pulse Rate 82 80 84 Pulse Rate [ From Monitor] Respiratory 24 24 28 H Rate Blood Pressure 115/51 115/51 115/51 O2 Sat by Pulse 98 99 96 Oximetry O2 Sat by Pulse Oximetry [ Assessment] 12/09/21 08:45 Temperature Pulse Rate 85 Pulse Rate [ From Monitor] Respiratory 29 H Rate Blood Pressure 158/109 O2 Sat by Pulse Oximetry O2 Sat by Pulse Oximetry [ Assessment] Constitutional: alert, appears uncomfortable (restless really), other (trach to MVS, frail elderly woman with mildly increased respiratory effort at rest) Eyes: non-icteric ENT: oropharynx moist, other (+ Midline tracheostomy) Neck: supple, no lymphadenopathy, no JVD Effort: mildly labored Ascultation: Bilateral: diminished breath sounds, rhonchi Percussion: Bilateral: not dull Cardiovascular: regular rate and rhythm, other (S1,S2) Gastrointestinal: normoactive bowel sounds, soft, non-tender, non-distended (protuberant) Integumentary: normal Extremities: no cyanosis, pink and warm, pulses normal, edema (upper etremities) Neurologic: normal mental status, non-focal exam (grossly), pupils equal and round, motor strength normal and Psychiatric: mood appropriate, affect normal CBC and BMP: 12/09/21 04:20 12/10/21 04:33 ABG, PT/INR, D-dimer: ABG ABG pH 7.449 pH Units (7.350-7.450) 11/21/21 16:00 ABG pCO2 32.1 mm Hg 11/21/21 16:00 ABG pO2 114.2 mm Hg (80.0-90.0) H 11/21/21 16:00 ABG O2 Saturation 98.3 % (95.0-99.0) 11/21/21 16:00 PT/INR, D-dimer PT 16.9 Sec. (12.2-14.9) H 11/26/21 05:00 INR 1.24 (0.87-1.13) H 11/26/21 05:00 D-Dimer 2655.00 ng/mlDDU (0-234) H 11/11/21 04:28 Abnormal lab findings: Abnormal Labs 11/03/21 11/03/21 11/03/21 22:32 22:32 22:32 WBC 29.3 H RBC 2.93 L Hgb 6.1 L Hct 21.9 L MCV 75 L MCH 21 L MCHC 28 L RDW 19.7 H Plt Count Seg Neuts % (Manual) 97.0 H Lymphocytes % (Manual) 3.0 L Seg Neutrophils # Man 28.4 H Lymphocytes # (Manual) 0.9 L Monocytes # (Manual) PT 18.6 H INR 1.40 H D-Dimer ABG pH ABG pO2 ABG HCO3 ABG O2 Saturation ABG Base Excess ABG Hemoglobin Oxyhemoglobin Sodium Potassium Chloride Carbon Dioxide 20 L BUN 33 H Creatinine Glucose 119 H POC Glucose Lactic Acid Calcium 8.3 L Phosphorus Magnesium AST ALT Alkaline Phosphatase Lactate Dehydrogenase Troponin T 0.035 H C-Reactive Protein NT-Pro-B Natriuret Pep Total Protein Albumin LDL Cholesterol Direct 34 L Vitamin B12 Crossmatch 11/03/21 11/03/21 11/03/21 22:32 22:32 23:57 WBC RBC Hgb Hct MCV MCH MCHC RDW Plt Count Seg Neuts % (Manual) Lymphocytes % (Manual) Seg Neutrophils # Man Lymphocytes # (Manual) Monocytes # (Manual) PT INR D-Dimer ABG pH ABG pO2 ABG HCO3 ABG O2 Saturation ABG Base Excess ABG Hemoglobin Oxyhemoglobin Sodium Potassium Chloride Carbon Dioxide BUN Creatinine Glucose POC Glucose Lactic Acid 3.70 H* Calcium Phosphorus Magnesium AST ALT Alkaline Phosphatase 139 H Lactate Dehydrogenase Troponin T C-Reactive Protein NT-Pro-B Natriuret Pep 7895 H Total Protein Albumin 3.5 L LDL Cholesterol Direct Vitamin B12 Crossmatch See Detail 11/04/21 11/04/21 11/05/21 00:59 13:58 00:51 WBC 27.9 H RBC 3.28 L Hgb 7.3 L Hct 25.5 L MCV 78 L MCH 22 L MCHC 29 L RDW 19.1 H Plt Count Seg Neuts % (Manual) 96.0 H Lymphocytes % (Manual) 2.0 L Seg Neutrophils # Man 26.8 H Lymphocytes # (Manual) 0.6 L Monocytes # (Manual) PT INR D-Dimer ABG pH ABG pO2 ABG HCO3 ABG O2 Saturation ABG Base Excess ABG Hemoglobin Oxyhemoglobin Sodium Potassium Chloride Carbon Dioxide BUN Creatinine Glucose POC Glucose Lactic Acid Calcium Phosphorus Magnesium AST ALT Alkaline Phosphatase Lactate Dehydrogenase Troponin T 0.051 H D 0.032 H D C-Reactive Protein NT-Pro-B Natriuret Pep Total Protein Albumin LDL Cholesterol Direct Vitamin B12 Crossmatch 11/05/21 11/05/21 11/05/21 06:11 06:11 06:11 WBC 31.8 H RBC 3.57 L Hgb 8.0 L Hct 27.7 L MCV 78 L MCH 22 L MCHC 29 L RDW 19.2 H Plt Count Seg Neuts % (Manual) 91.0 H Lymphocytes % (Manual) 4.5 L Seg Neutrophils # Man 28.9 H Lymphocytes # (Manual) Monocytes # (Manual) 1.1 H PT INR D-Dimer 1494.53 H ABG pH ABG pO2 ABG HCO3 ABG O2 Saturation ABG Base Excess ABG Hemoglobin Oxyhemoglobin Sodium Potassium Chloride Carbon Dioxide 19 L BUN 42 H Creatinine Glucose 115 H POC Glucose Lactic Acid Calcium Phosphorus Magnesium AST 43 H ALT Alkaline Phosphatase Lactate Dehydrogenase 187 H Troponin T C-Reactive Protein 22.20 H NT-Pro-B Natriuret Pep Total Protein 6.0 L Albumin 3.2 L LDL Cholesterol Direct Vitamin B12 Crossmatch 11/05/21 11/05/21 11/06/21 06:11 12:15 00:30 WBC RBC Hgb Hct MCV MCH MCHC RDW Plt Count Seg Neuts % (Manual) Lymphocytes % (Manual) Seg Neutrophils # Man Lymphocytes # (Manual) Monocytes # (Manual) PT INR D-Dimer ABG pH ABG pO2 ABG HCO3 ABG O2 Saturation ABG Base Excess ABG Hemoglobin Oxyhemoglobin Sodium Potassium Chloride Carbon Dioxide BUN Creatinine Glucose POC Glucose 113 H 69 L Lactic Acid Calcium Phosphorus Magnesium AST ALT Alkaline Phosphatase Lactate Dehydrogenase Troponin T 0.033 H C-Reactive Protein NT-Pro-B Natriuret Pep Total Protein Albumin LDL Cholesterol Direct Vitamin B12 Crossmatch 11/06/21 11/06/21 11/06/21 05:50 15:50 15:50 WBC 25.5 H RBC 3.62 L Hgb 8.0 L Hct 27.5 L MCV 76 L MCH 22 L MCHC 29 L RDW 19.6 H Plt Count Seg Neuts % (Manual) 92.0 H Lymphocytes % (Manual) 5.0 L Seg Neutrophils # Man 23.5 H Lymphocytes # (Manual) Monocytes # (Manual) PT INR D-Dimer ABG pH 7.305 L ABG pO2 ABG HCO3 15.8 L ABG O2 Saturation ABG Base Excess -9.6 L ABG Hemoglobin 8.6 L Oxyhemoglobin 94.6 L Sodium Potassium Chloride 113.9 H Carbon Dioxide 17 L BUN 56 H Creatinine Glucose 114 H POC Glucose Lactic Acid Calcium 7.9 L Phosphorus Magnesium AST 1410 H ALT 934 H Alkaline Phosphatase 142 H Lactate Dehydrogenase Troponin T C-Reactive Protein NT-Pro-B Natriuret Pep Total Protein 5.0 L Albumin 2.6 L LDL Cholesterol Direct Vitamin B12 Crossmatch 11/07/21 11/07/21 11/07/21 03:30 04:50 08:07 WBC RBC Hgb Hct MCV MCH MCHC RDW Plt Count Seg Neuts % (Manual) Lymphocytes % (Manual) Seg Neutrophils # Man Lymphocytes # (Manual) Monocytes # (Manual) PT INR D-Dimer ABG pH ABG pO2 296.9 H ABG HCO3 18.1 L ABG O2 Saturation 99.5 H ABG Base Excess -5.9 L ABG Hemoglobin 7.6 L Oxyhemoglobin Sodium Potassium Chloride Carbon Dioxide BUN Creatinine Glucose POC Glucose 106 H 108 H Lactic Acid Calcium Phosphorus Magnesium AST ALT Alkaline Phosphatase Lactate Dehydrogenase Troponin T C-Reactive Protein NT-Pro-B Natriuret Pep Total Protein Albumin LDL Cholesterol Direct Vitamin B12 Crossmatch 11/08/21 11/08/21 11/08/21 03:10 18:05 23:43 WBC RBC Hgb Hct MCV MCH MCHC RDW Plt Count Seg Neuts % (Manual) Lymphocytes % (Manual) Seg Neutrophils # Man Lymphocytes # (Manual) Monocytes # (Manual) PT INR D-Dimer ABG pH ABG pO2 127.4 H ABG HCO3 ABG O2 Saturation ABG Base Excess -3.4 L ABG Hemoglobin 7.4 L Oxyhemoglobin Sodium Potassium Chloride Carbon Dioxide BUN Creatinine Glucose POC Glucose 113 H 141 H Lactic Acid Calcium Phosphorus Magnesium AST ALT Alkaline Phosphatase Lactate Dehydrogenase Troponin T C-Reactive Protein NT-Pro-B Natriuret Pep Total Protein Albumin LDL Cholesterol Direct Vitamin B12 Crossmatch 11/08/21 11/08/21 11/09/21 Unknown Unknown 02:00 WBC 14.5 H RBC 3.35 L Hgb 7.5 L 8.1 L Hct 25.4 L 27.6 L MCV 76 L 76 L MCH 23 L 22 L MCHC RDW 19.9 H 19.9 H Plt Count Seg Neuts % (Manual) Lymphocytes % (Manual) Seg Neutrophils # Man Lymphocytes # (Manual) Monocytes # (Manual) PT INR D-Dimer ABG pH ABG pO2 ABG HCO3 ABG O2 Saturation ABG Base Excess ABG Hemoglobin Oxyhemoglobin Sodium 154 H D Potassium 3.3 L Chloride 120.7 H Carbon Dioxide 20 L BUN 38 H Creatinine Glucose POC Glucose Lactic Acid Calcium 8.3 L Phosphorus Magnesium AST ALT Alkaline Phosphatase Lactate Dehydrogenase Troponin T C-Reactive Protein NT-Pro-B Natriuret Pep Total Protein Albumin LDL Cholesterol Direct Vitamin B12 Crossmatch 11/09/21 11/09/21 11/09/21 02:00 02:31 05:12 WBC RBC Hgb Hct MCV MCH MCHC RDW Plt Count Seg Neuts % (Manual) Lymphocytes % (Manual) Seg Neutrophils # Man Lymphocytes # (Manual) Monocytes # (Manual) PT INR D-Dimer ABG pH 7.479 H ABG pO2 121.3 H ABG HCO3 ABG O2 Saturation ABG Base Excess ABG Hemoglobin 7.3 L Oxyhemoglobin Sodium Potassium Chloride 112.5 H Carbon Dioxide BUN 33 H Creatinine Glucose 161 H POC Glucose 135 H Lactic Acid Calcium Phosphorus Magnesium AST 251 H ALT 481 H Alkaline Phosphatase Lactate Dehydrogenase Troponin T C-Reactive Protein NT-Pro-B Natriuret Pep Total Protein 5.0 L Albumin 2.8 L LDL Cholesterol Direct Vitamin B12 Crossmatch 11/09/21 11/09/21 11/09/21 11:33 16:32 23:28 WBC RBC Hgb Hct MCV MCH MCHC RDW Plt Count Seg Neuts % (Manual) Lymphocytes % (Manual) Seg Neutrophils # Man Lymphocytes # (Manual) Monocytes # (Manual) PT INR D-Dimer ABG pH ABG pO2 ABG HCO3 ABG O2 Saturation ABG Base Excess ABG Hemoglobin Oxyhemoglobin Sodium Potassium Chloride Carbon Dioxide BUN Creatinine Glucose POC Glucose 132 H 133 H 143 H Lactic Acid Calcium Phosphorus Magnesium AST ALT Alkaline Phosphatase Lactate Dehydrogenase Troponin T C-Reactive Protein NT-Pro-B Natriuret Pep Total Protein Albumin LDL Cholesterol Direct Vitamin B12 Crossmatch 11/10/21 11/10/21 11/10/21 04:00 04:00 05:35 WBC 16.0 H RBC 3.61 L Hgb 8.0 L Hct 27.1 L MCV 75 L MCH 22 L MCHC RDW 20.4 H Plt Count Seg Neuts % (Manual) Lymphocytes % (Manual) Seg Neutrophils # Man Lymphocytes # (Manual) Monocytes # (Manual) PT INR D-Dimer ABG pH ABG pO2 ABG HCO3 ABG O2 Saturation ABG Base Excess ABG Hemoglobin Oxyhemoglobin Sodium 149 H Potassium Chloride 114.1 H Carbon Dioxide BUN 31 H Creatinine Glucose 148 H POC Glucose 132 H Lactic Acid Calcium 8.2 L Phosphorus Magnesium AST ALT Alkaline Phosphatase Lactate Dehydrogenase Troponin T C-Reactive Protein NT-Pro-B Natriuret Pep Total Protein Albumin LDL Cholesterol Direct Vitamin B12 Crossmatch 11/10/21 11/10/21 11/10/21 11:31 14:08 15:35 WBC RBC Hgb Hct MCV MCH MCHC RDW Plt Count Seg Neuts % (Manual) Lymphocytes % (Manual) Seg Neutrophils # Man Lymphocytes # (Manual) Monocytes # (Manual) PT INR D-Dimer ABG pH ABG pO2 126.6 H ABG HCO3 ABG O2 Saturation ABG Base Excess ABG Hemoglobin 7.4 L Oxyhemoglobin Sodium Potassium Chloride Carbon Dioxide BUN Creatinine Glucose POC Glucose 147 H Lactic Acid Calcium Phosphorus Magnesium AST ALT Alkaline Phosphatase Lactate Dehydrogenase Troponin T C-Reactive Protein NT-Pro-B Natriuret Pep Total Protein Albumin LDL Cholesterol Direct Vitamin B12 1823 H Crossmatch 11/10/21 11/11/21 11/11/21 17:53 00:55 04:28 WBC RBC Hgb Hct MCV MCH MCHC RDW Plt Count Seg Neuts % (Manual) Lymphocytes % (Manual) Seg Neutrophils # Man Lymphocytes # (Manual) Monocytes # (Manual) PT INR D-Dimer ABG pH ABG pO2 ABG HCO3 ABG O2 Saturation ABG Base Excess ABG Hemoglobin Oxyhemoglobin Sodium 149 H Potassium Chloride 112.2 H Carbon Dioxide BUN 34 H Creatinine Glucose 148 H POC Glucose 140 H 145 H Lactic Acid Calcium 7.9 L Phosphorus Magnesium AST 53 H ALT 203 H Alkaline Phosphatase Lactate Dehydrogenase Troponin T C-Reactive Protein NT-Pro-B Natriuret Pep Total Protein 4.9 L Albumin 2.6 L LDL Cholesterol Direct Vitamin B12 Crossmatch 11/11/21 11/11/21 11/11/21 04:28 04:28 05:28 WBC 20.9 H RBC 3.47 L Hgb 7.5 L Hct 26.0 L MCV 75 L MCH 22 L MCHC 29 L RDW 21.6 H Plt Count 132 L Seg Neuts % (Manual) Lymphocytes % (Manual) Seg Neutrophils # Man Lymphocytes # (Manual) Monocytes # (Manual) PT INR D-Dimer 2655.00 H ABG pH ABG pO2 ABG HCO3 ABG O2 Saturation ABG Base Excess ABG Hemoglobin Oxyhemoglobin Sodium Potassium Chloride Carbon Dioxide BUN Creatinine Glucose POC Glucose 154 H Lactic Acid Calcium Phosphorus Magnesium AST ALT Alkaline Phosphatase Lactate Dehydrogenase Troponin T C-Reactive Protein NT-Pro-B Natriuret Pep Total Protein Albumin LDL Cholesterol Direct Vitamin B12 Crossmatch 11/11/21 11/11/21 11/12/21 12:38 18:13 00:14 WBC RBC Hgb Hct MCV MCH MCHC RDW Plt Count Seg Neuts % (Manual) Lymphocytes % (Manual) Seg Neutrophils # Man Lymphocytes # (Manual) Monocytes # (Manual) PT INR D-Dimer ABG pH ABG pO2 ABG HCO3 ABG O2 Saturation ABG Base Excess ABG Hemoglobin Oxyhemoglobin Sodium Potassium Chloride Carbon Dioxide BUN Creatinine Glucose POC Glucose 137 H 108 H 137 H Lactic Acid Calcium Phosphorus Magnesium AST ALT Alkaline Phosphatase Lactate Dehydrogenase Troponin T C-Reactive Protein NT-Pro-B Natriuret Pep Total Protein Albumin LDL Cholesterol Direct Vitamin B12 Crossmatch 11/12/21 11/12/21 11/12/21 05:40 06:24 11:12 WBC RBC Hgb Hct MCV MCH MCHC RDW Plt Count Seg Neuts % (Manual) Lymphocytes % (Manual) Seg Neutrophils # Man Lymphocytes # (Manual) Monocytes # (Manual) PT INR D-Dimer ABG pH 7.586 H ABG pO2 150.6 H ABG HCO3 27.2 H ABG O2 Saturation 99.1 H ABG Base Excess 5.2 H ABG Hemoglobin 7.5 L Oxyhemoglobin Sodium Potassium Chloride Carbon Dioxide BUN Creatinine Glucose POC Glucose 132 H 140 H Lactic Acid Calcium Phosphorus Magnesium AST ALT Alkaline Phosphatase Lactate Dehydrogenase Troponin T C-Reactive Protein NT-Pro-B Natriuret Pep Total Protein Albumin LDL Cholesterol Direct Vitamin B12 Crossmatch 11/12/21 11/12/21 11/12/21 14:50 14:50 17:13 WBC 19.8 H RBC 3.27 L Hgb 7.1 L Hct 24.5 L MCV 75 L MCH 22 L MCHC 29 L RDW 22.3 H Plt Count Seg Neuts % (Manual) Lymphocytes % (Manual) Seg Neutrophils # Man Lymphocytes # (Manual) Monocytes # (Manual) PT INR D-Dimer ABG pH ABG pO2 ABG HCO3 ABG O2 Saturation ABG Base Excess ABG Hemoglobin Oxyhemoglobin Sodium 150 H Potassium 3.3 L Chloride 112.0 H Carbon Dioxide BUN 40 H Creatinine Glucose 151 H POC Glucose 121 H Lactic Acid Calcium 7.4 L Phosphorus 1.70 L Magnesium 1.40 L AST ALT Alkaline Phosphatase Lactate Dehydrogenase Troponin T C-Reactive Protein NT-Pro-B Natriuret Pep Total Protein Albumin LDL Cholesterol Direct Vitamin B12 Crossmatch 11/12/21 11/13/21 11/13/21 23:19 05:34 06:30 WBC RBC Hgb Hct MCV MCH MCHC RDW Plt Count Seg Neuts % (Manual) Lymphocytes % (Manual) Seg Neutrophils # Man Lymphocytes # (Manual) Monocytes # (Manual) PT INR D-Dimer ABG pH ABG pO2 ABG HCO3 ABG O2 Saturation ABG Base Excess ABG Hemoglobin Oxyhemoglobin Sodium 149 H Potassium Chloride 60.0 L Carbon Dioxide BUN 40 H Creatinine Glucose 146 H POC Glucose 113 H 132 H Lactic Acid Calcium 7.3 L Phosphorus Magnesium 2.40 H AST ALT 72 H Alkaline Phosphatase Lactate Dehydrogenase Troponin T C-Reactive Protein NT-Pro-B Natriuret Pep Total Protein 5.2 L Albumin 2.2 L LDL Cholesterol Direct Vitamin B12 Crossmatch 11/13/21 11/13/21 11/13/21 06:30 08:30 11:19 WBC 21.2 H RBC 3.12 L Hgb 6.8 L Hct 23.2 L MCV 74 L MCH 22 L MCHC 29 L RDW 22.2 H Plt Count 135 L Seg Neuts % (Manual) Lymphocytes % (Manual) Seg Neutrophils # Man Lymphocytes # (Manual) Monocytes # (Manual) PT INR D-Dimer ABG pH ABG pO2 ABG HCO3 ABG O2 Saturation ABG Base Excess ABG Hemoglobin Oxyhemoglobin Sodium Potassium Chloride Carbon Dioxide BUN Creatinine Glucose POC Glucose 136 H Lactic Acid Calcium Phosphorus Magnesium AST ALT Alkaline Phosphatase Lactate Dehydrogenase Troponin T C-Reactive Protein NT-Pro-B Natriuret Pep Total Protein Albumin LDL Cholesterol Direct Vitamin B12 Crossmatch See Detail 11/13/21 11/14/21 11/14/21 18:21 00:01 04:46 WBC 20.0 H RBC 3.41 L Hgb 7.9 L Hct 26.8 L MCV MCH 23 L MCHC 29 L RDW 24.0 H Plt Count Seg Neuts % (Manual) Lymphocytes % (Manual) Seg Neutrophils # Man Lymphocytes # (Manual) Monocytes # (Manual) PT INR D-Dimer ABG pH ABG pO2 ABG HCO3 ABG O2 Saturation ABG Base Excess ABG Hemoglobin Oxyhemoglobin Sodium Potassium Chloride Carbon Dioxide BUN Creatinine Glucose POC Glucose 149 H 141 H Lactic Acid Calcium Phosphorus Magnesium AST ALT Alkaline Phosphatase Lactate Dehydrogenase Troponin T C-Reactive Protein NT-Pro-B Natriuret Pep Total Protein Albumin LDL Cholesterol Direct Vitamin B12 Crossmatch 11/14/21 11/14/21 11/14/21 04:46 05:10 11:10 WBC RBC Hgb Hct MCV MCH MCHC RDW Plt Count Seg Neuts % (Manual) Lymphocytes % (Manual) Seg Neutrophils # Man Lymphocytes # (Manual) Monocytes # (Manual) PT INR D-Dimer ABG pH ABG pO2 ABG HCO3 ABG O2 Saturation ABG Base Excess ABG Hemoglobin Oxyhemoglobin Sodium 148 H Potassium Chloride 113.1 H Carbon Dioxide BUN 43 H Creatinine Glucose 140 H POC Glucose 132 H 133 H Lactic Acid Calcium 7.5 L Phosphorus Magnesium AST ALT Alkaline Phosphatase Lactate Dehydrogenase Troponin T C-Reactive Protein NT-Pro-B Natriuret Pep Total Protein Albumin LDL Cholesterol Direct Vitamin B12 Crossmatch 11/14/21 11/14/21 11/14/21 16:14 17:48 23:23 WBC RBC Hgb Hct MCV MCH MCHC RDW Plt Count Seg Neuts % (Manual) Lymphocytes % (Manual) Seg Neutrophils # Man Lymphocytes # (Manual) Monocytes # (Manual) PT INR D-Dimer ABG pH ABG pO2 ABG HCO3 28.0 H ABG O2 Saturation ABG Base Excess 3.1 H ABG Hemoglobin 5.8 L Oxyhemoglobin 94.8 L Sodium Potassium Chloride Carbon Dioxide BUN Creatinine Glucose POC Glucose 130 H 136 H Lactic Acid Calcium Phosphorus Magnesium AST ALT Alkaline Phosphatase Lactate Dehydrogenase Troponin T C-Reactive Protein NT-Pro-B Natriuret Pep Total Protein Albumin LDL Cholesterol Direct Vitamin B12 Crossmatch 11/15/21 11/15/21 11/15/21 05:20 05:50 05:50 WBC 19.9 H RBC 3.50 L Hgb 8.2 L Hct 27.9 L MCV MCH 23 L MCHC 29 L RDW 24.9 H Plt Count Seg Neuts % (Manual) Lymphocytes % (Manual) Seg Neutrophils # Man Lymphocytes # (Manual) Monocytes # (Manual) PT INR D-Dimer ABG pH ABG pO2 ABG HCO3 ABG O2 Saturation ABG Base Excess ABG Hemoglobin Oxyhemoglobin Sodium 149 H Potassium Chloride 112.0 H Carbon Dioxide BUN 48 H Creatinine Glucose 152 H POC Glucose 137 H Lactic Acid Calcium 7.9 L Phosphorus Magnesium AST ALT Alkaline Phosphatase Lactate Dehydrogenase Troponin T C-Reactive Protein NT-Pro-B Natriuret Pep Total Protein Albumin LDL Cholesterol Direct Vitamin B12 Crossmatch 11/15/21 11/15/21 11/15/21 12:12 17:07 23:24 WBC RBC Hgb Hct MCV MCH MCHC RDW Plt Count Seg Neuts % (Manual) Lymphocytes % (Manual) Seg Neutrophils # Man Lymphocytes # (Manual) Monocytes # (Manual) PT INR D-Dimer ABG pH ABG pO2 ABG HCO3 ABG O2 Saturation ABG Base Excess ABG Hemoglobin Oxyhemoglobin Sodium Potassium Chloride Carbon Dioxide BUN Creatinine Glucose POC Glucose 114 H 135 H 123 H Lactic Acid Calcium Phosphorus Magnesium AST ALT Alkaline Phosphatase Lactate Dehydrogenase Troponin T C-Reactive Protein NT-Pro-B Natriuret Pep Total Protein Albumin LDL Cholesterol Direct Vitamin B12 Crossmatch 11/16/21 11/16/21 11/16/21 05:21 10:00 10:00 WBC 21.7 H RBC 2.57 L Hgb 6.0 L Hct 20.2 L D MCV MCH 24 L MCHC RDW 26.3 H Plt Count Seg Neuts % (Manual) Lymphocytes % (Manual) Seg Neutrophils # Man Lymphocytes # (Manual) Monocytes # (Manual) PT INR D-Dimer ABG pH ABG pO2 ABG HCO3 ABG O2 Saturation ABG Base Excess ABG Hemoglobin Oxyhemoglobin Sodium 153 H Potassium Chloride 114.9 H Carbon Dioxide BUN 74 H Creatinine Glucose 155 H POC Glucose 127 H Lactic Acid Calcium 8.1 L Phosphorus Magnesium AST ALT Alkaline Phosphatase Lactate Dehydrogenase Troponin T C-Reactive Protein NT-Pro-B Natriuret Pep Total Protein Albumin LDL Cholesterol Direct Vitamin B12 Crossmatch 11/16/21 11/16/21 11/16/21 11:34 14:00 15:25 WBC 17.2 H RBC 2.08 L Hgb 4.7 L* Hct 16.2 L* MCV 78 L MCH 23 L MCHC 29 L RDW 26.0 H Plt Count Seg Neuts % (Manual) 87.0 H Lymphocytes % (Manual) 8.0 L Seg Neutrophils # Man 15.0 H Lymphocytes # (Manual) Monocytes # (Manual) 0.9 H PT INR D-Dimer ABG pH ABG pO2 ABG HCO3 ABG O2 Saturation ABG Base Excess ABG Hemoglobin Oxyhemoglobin Sodium Potassium Chloride Carbon Dioxide BUN Creatinine Glucose POC Glucose 131 H Lactic Acid Calcium Phosphorus Magnesium AST ALT Alkaline Phosphatase Lactate Dehydrogenase Troponin T C-Reactive Protein NT-Pro-B Natriuret Pep Total Protein Albumin LDL Cholesterol Direct Vitamin B12 Crossmatch See Detail 11/16/21 11/16/21 11/16/21 15:25 17:21 22:43 WBC RBC Hgb 8.6 L D Hct 27.7 L D MCV MCH MCHC RDW Plt Count Seg Neuts % (Manual) Lymphocytes % (Manual) Seg Neutrophils # Man Lymphocytes # (Manual) Monocytes # (Manual) PT INR D-Dimer ABG pH ABG pO2 ABG HCO3 ABG O2 Saturation ABG Base Excess ABG Hemoglobin Oxyhemoglobin Sodium 148 H Potassium Chloride 113.2 H Carbon Dioxide BUN 84 H Creatinine Glucose 164 H POC Glucose 124 H Lactic Acid Calcium 7.6 L Phosphorus Magnesium AST ALT Alkaline Phosphatase Lactate Dehydrogenase Troponin T C-Reactive Protein NT-Pro-B Natriuret Pep Total Protein Albumin LDL Cholesterol Direct Vitamin B12 Crossmatch 11/16/21 11/17/21 11/17/21 23:07 05:33 05:56 WBC 25.1 H RBC 3.47 L Hgb 8.7 L Hct 28.5 L MCV MCH 25 L MCHC RDW 22.3 H Plt Count Seg Neuts % (Manual) Lymphocytes % (Manual) Seg Neutrophils # Man Lymphocytes # (Manual) Monocytes # (Manual) PT INR D-Dimer ABG pH ABG pO2 ABG HCO3 ABG O2 Saturation ABG Base Excess ABG Hemoglobin Oxyhemoglobin Sodium Potassium Chloride Carbon Dioxide BUN Creatinine Glucose POC Glucose 128 H 133 H Lactic Acid Calcium Phosphorus Magnesium AST ALT Alkaline Phosphatase Lactate Dehydrogenase Troponin T C-Reactive Protein NT-Pro-B Natriuret Pep Total Protein Albumin LDL Cholesterol Direct Vitamin B12 Crossmatch 11/17/21 11/17/21 11/17/21 05:56 11:00 11:55 WBC RBC Hgb 8.3 L Hct 26.9 L MCV MCH MCHC RDW Plt Count Seg Neuts % (Manual) Lymphocytes % (Manual) Seg Neutrophils # Man Lymphocytes # (Manual) Monocytes # (Manual) PT INR D-Dimer ABG pH ABG pO2 ABG HCO3 ABG O2 Saturation ABG Base Excess ABG Hemoglobin Oxyhemoglobin Sodium 151 H Potassium Chloride 113.6 H Carbon Dioxide BUN 85 H Creatinine Glucose 132 H POC Glucose 121 H Lactic Acid Calcium 7.8 L Phosphorus Magnesium AST ALT Alkaline Phosphatase Lactate Dehydrogenase Troponin T C-Reactive Protein NT-Pro-B Natriuret Pep Total Protein 5.1 L Albumin 2.2 L LDL Cholesterol Direct Vitamin B12 Crossmatch 11/17/21 11/17/21 11/18/21 18:04 18:55 00:26 WBC RBC Hgb 7.5 L 7.1 L Hct 24.8 L 23.6 L MCV MCH MCHC RDW Plt Count Seg Neuts % (Manual) Lymphocytes % (Manual) Seg Neutrophils # Man Lymphocytes # (Manual) Monocytes # (Manual) PT INR D-Dimer ABG pH ABG pO2 ABG HCO3 ABG O2 Saturation ABG Base Excess ABG Hemoglobin Oxyhemoglobin Sodium Potassium Chloride Carbon Dioxide BUN Creatinine Glucose POC Glucose 144 H Lactic Acid Calcium Phosphorus Magnesium AST ALT Alkaline Phosphatase Lactate Dehydrogenase Troponin T C-Reactive Protein NT-Pro-B Natriuret Pep Total Protein Albumin LDL Cholesterol Direct Vitamin B12 Crossmatch 02/11/0811/18/21 11/18/21 00:43 05:10 05:10 WBC 12.5 H RBC 2.39 L Hgb 6.1 L Hct 20.2 L MCV MCH 25 L MCHC RDW 23.2 H Plt Count Seg Neuts % (Manual) Lymphocytes % (Manual) Seg Neutrophils # Man Lymphocytes # (Manual) Monocytes # (Manual) PT INR D-Dimer ABG pH ABG pO2 ABG HCO3 ABG O2 Saturation ABG Base Excess ABG Hemoglobin Oxyhemoglobin Sodium 131 L D Potassium 2.9 L* D Chloride 97.8 L Carbon Dioxide BUN 58 H Creatinine Glucose 665 H* POC Glucose 139 H Lactic Acid Calcium 7.0 L Phosphorus 2.20 L D Magnesium 1.50 L AST ALT Alkaline Phosphatase Lactate Dehydrogenase Troponin T C-Reactive Protein NT-Pro-B Natriuret Pep Total Protein Albumin LDL Cholesterol Direct Vitamin B12 Crossmatch 11/18/21 11/18/21 11/18/21 05:23 07:10 10:45 WBC RBC Hgb Hct MCV MCH MCHC RDW Plt Count Seg Neuts % (Manual) Lymphocytes % (Manual) Seg Neutrophils # Man Lymphocytes # (Manual) Monocytes # (Manual) PT INR D-Dimer ABG pH ABG pO2 ABG HCO3 ABG O2 Saturation ABG Base Excess ABG Hemoglobin Oxyhemoglobin Sodium 148 H D Potassium 3.1 L Chloride 111.9 H Carbon Dioxide BUN 63 H Creatinine Glucose 141 H POC Glucose 124 H Lactic Acid Calcium 8.1 L D Phosphorus Magnesium AST ALT Alkaline Phosphatase Lactate Dehydrogenase Troponin T C-Reactive Protein NT-Pro-B Natriuret Pep Total Protein Albumin LDL Cholesterol Direct Vitamin B12 Crossmatch See Detail 11/18/21 11/19/21 11/19/21 11:57 00:19 04:55 WBC RBC 3.35 L Hgb 9.0 L 8.9 L Hct 28.3 L D 28.1 L MCV MCH 27 L MCHC RDW 20.3 H Plt Count Seg Neuts % (Manual) Lymphocytes % (Manual) Seg Neutrophils # Man Lymphocytes # (Manual) Monocytes # (Manual) PT INR D-Dimer ABG pH ABG pO2 ABG HCO3 ABG O2 Saturation ABG Base Excess ABG Hemoglobin Oxyhemoglobin Sodium Potassium Chloride Carbon Dioxide BUN Creatinine Glucose POC Glucose 119 H Lactic Acid Calcium Phosphorus Magnesium AST ALT Alkaline Phosphatase Lactate Dehydrogenase Troponin T C-Reactive Protein NT-Pro-B Natriuret Pep Total Protein Albumin LDL Cholesterol Direct Vitamin B12 Crossmatch 11/19/21 11/19/21 11/20/21 04:55 05:42 00:55 WBC RBC Hgb 9.0 L Hct 28.6 L MCV MCH MCHC RDW Plt Count Seg Neuts % (Manual) Lymphocytes % (Manual) Seg Neutrophils # Man Lymphocytes # (Manual) Monocytes # (Manual) PT INR D-Dimer ABG pH ABG pO2 ABG HCO3 ABG O2 Saturation ABG Base Excess ABG Hemoglobin Oxyhemoglobin Sodium Potassium 3.5 L Chloride 108.6 H Carbon Dioxide BUN 47 H Creatinine Glucose 207 H POC Glucose 63 L Lactic Acid Calcium 7.1 L Phosphorus Magnesium AST ALT Alkaline Phosphatase Lactate Dehydrogenase Troponin T C-Reactive Protein NT-Pro-B Natriuret Pep Total Protein Albumin LDL Cholesterol Direct Vitamin B12 Crossmatch 11/20/21 11/20/21 11/20/21 05:40 05:40 Unknown WBC RBC 3.40 L Hgb 9.1 L Hct 28.8 L MCV MCH 27 L MCHC RDW 20.7 H Plt Count Seg Neuts % (Manual) Lymphocytes % (Manual) Seg Neutrophils # Man Lymphocytes # (Manual) Monocytes # (Manual) PT INR D-Dimer ABG pH ABG pO2 ABG HCO3 ABG O2 Saturation ABG Base Excess -2.7 L ABG Hemoglobin 9.5 L Oxyhemoglobin 94.3 L Sodium Potassium 3.5 L Chloride 108.9 H Carbon Dioxide BUN 37 H Creatinine Glucose 117 H POC Glucose Lactic Acid Calcium 7.5 L Phosphorus Magnesium AST ALT Alkaline Phosphatase Lactate Dehydrogenase Troponin T C-Reactive Protein NT-Pro-B Natriuret Pep Total Protein Albumin LDL Cholesterol Direct Vitamin B12 Crossmatch 11/21/21 11/21/21 11/21/21 04:30 04:30 16:00 WBC RBC 3.25 L Hgb 8.6 L Hct 28.1 L MCV MCH 26 L MCHC RDW 20.7 H Plt Count Seg Neuts % (Manual) Lymphocytes % (Manual) Seg Neutrophils # Man Lymphocytes # (Manual) Monocytes # (Manual) PT INR D-Dimer ABG pH ABG pO2 114.2 H ABG HCO3 ABG O2 Saturation ABG Base Excess ABG Hemoglobin 9.1 L Oxyhemoglobin Sodium 134 L Potassium Chloride Carbon Dioxide 20 L BUN 34 H Creatinine Glucose POC Glucose Lactic Acid Calcium 7.1 L Phosphorus Magnesium AST ALT Alkaline Phosphatase Lactate Dehydrogenase Troponin T C-Reactive Protein NT-Pro-B Natriuret Pep Total Protein Albumin LDL Cholesterol Direct Vitamin B12 Crossmatch 11/22/21 11/22/21 11/22/21 07:07 07:07 23:54 WBC RBC 3.30 L Hgb 9.0 L Hct 28.5 L MCV MCH 27 L MCHC RDW 21.0 H Plt Count Seg Neuts % (Manual) Lymphocytes % (Manual) Seg Neutrophils # Man Lymphocytes # (Manual) Monocytes # (Manual) PT INR D-Dimer ABG pH ABG pO2 ABG HCO3 ABG O2 Saturation ABG Base Excess ABG Hemoglobin Oxyhemoglobin Sodium Potassium Chloride Carbon Dioxide BUN 32 H Creatinine Glucose 106 H POC Glucose 110 H Lactic Acid Calcium 7.5 L Phosphorus Magnesium AST ALT Alkaline Phosphatase Lactate Dehydrogenase Troponin T C-Reactive Protein NT-Pro-B Natriuret Pep Total Protein Albumin LDL Cholesterol Direct Vitamin B12 Crossmatch 11/23/21 11/23/21 11/23/21 04:38 04:38 06:01 WBC RBC 3.23 L Hgb 8.8 L Hct 28.0 L MCV MCH 27 L MCHC RDW 21.3 H Plt Count Seg Neuts % (Manual) Lymphocytes % (Manual) Seg Neutrophils # Man Lymphocytes # (Manual) Monocytes # (Manual) PT INR D-Dimer ABG pH ABG pO2 ABG HCO3 ABG O2 Saturation ABG Base Excess ABG Hemoglobin Oxyhemoglobin Sodium 136 L Potassium Chloride Carbon Dioxide 20 L BUN 32 H Creatinine Glucose 109 H POC Glucose 115 H Lactic Acid Calcium 7.7 L Phosphorus Magnesium AST ALT Alkaline Phosphatase Lactate Dehydrogenase Troponin T C-Reactive Protein NT-Pro-B Natriuret Pep Total Protein Albumin LDL Cholesterol Direct Vitamin B12 Crossmatch 11/23/21 11/24/21 11/24/21 11:40 00:03 04:13 WBC RBC 3.18 L Hgb 8.5 L Hct 27.5 L MCV MCH 27 L MCHC RDW 21.6 H Plt Count Seg Neuts % (Manual) Lymphocytes % (Manual) Seg Neutrophils # Man Lymphocytes # (Manual) Monocytes # (Manual) PT INR D-Dimer ABG pH ABG pO2 ABG HCO3 ABG O2 Saturation ABG Base Excess ABG Hemoglobin Oxyhemoglobin Sodium Potassium Chloride Carbon Dioxide BUN Creatinine Glucose POC Glucose 117 H 111 H Lactic Acid Calcium Phosphorus Magnesium AST ALT Alkaline Phosphatase Lactate Dehydrogenase Troponin T C-Reactive Protein NT-Pro-B Natriuret Pep Total Protein Albumin LDL Cholesterol Direct Vitamin B12 Crossmatch 11/24/21 11/24/21 11/24/21 04:13 05:30 11:10 WBC RBC Hgb Hct MCV MCH MCHC RDW Plt Count Seg Neuts % (Manual) Lymphocytes % (Manual) Seg Neutrophils # Man Lymphocytes # (Manual) Monocytes # (Manual) PT INR D-Dimer ABG pH ABG pO2 ABG HCO3 ABG O2 Saturation ABG Base Excess ABG Hemoglobin Oxyhemoglobin Sodium Potassium Chloride Carbon Dioxide BUN 31 H Creatinine Glucose 101 H POC Glucose 115 H 107 H Lactic Acid Calcium 7.7 L Phosphorus Magnesium AST ALT Alkaline Phosphatase Lactate Dehydrogenase Troponin T C-Reactive Protein NT-Pro-B Natriuret Pep Total Protein Albumin LDL Cholesterol Direct Vitamin B12 Crossmatch 11/24/21 11/24/21 11/25/21 16:34 17:57 05:12 WBC RBC 3.11 L Hgb 8.2 L Hct 26.6 L MCV MCH 26 L MCHC RDW 21.3 H Plt Count Seg Neuts % (Manual) Lymphocytes % (Manual) Seg Neutrophils # Man Lymphocytes # (Manual) Monocytes # (Manual) PT INR D-Dimer ABG pH ABG pO2 ABG HCO3 ABG O2 Saturation ABG Base Excess ABG Hemoglobin Oxyhemoglobin Sodium Potassium Chloride Carbon Dioxide BUN Creatinine Glucose POC Glucose 115 H 110 H Lactic Acid Calcium Phosphorus Magnesium AST ALT Alkaline Phosphatase Lactate Dehydrogenase Troponin T C-Reactive Protein NT-Pro-B Natriuret Pep Total Protein Albumin LDL Cholesterol Direct Vitamin B12 Crossmatch 11/25/21 11/25/21 11/26/21 05:12 11:20 05:00 WBC RBC 3.30 L Hgb 8.8 L Hct 28.2 L MCV MCH 27 L MCHC RDW 20.7 H Plt Count Seg Neuts % (Manual) Lymphocytes % (Manual) Seg Neutrophils # Man Lymphocytes # (Manual) Monocytes # (Manual) PT INR D-Dimer ABG pH ABG pO2 ABG HCO3 ABG O2 Saturation ABG Base Excess ABG Hemoglobin Oxyhemoglobin Sodium Potassium Chloride Carbon Dioxide BUN 32 H Creatinine Glucose 118 H POC Glucose 118 H Lactic Acid Calcium 8.2 L Phosphorus Magnesium AST ALT Alkaline Phosphatase Lactate Dehydrogenase Troponin T C-Reactive Protein NT-Pro-B Natriuret Pep Total Protein Albumin LDL Cholesterol Direct Vitamin B12 Crossmatch 11/26/21 11/26/21 11/26/21 05:00 05:00 05:44 WBC RBC Hgb Hct MCV MCH MCHC RDW Plt Count Seg Neuts % (Manual) Lymphocytes % (Manual) Seg Neutrophils # Man Lymphocytes # (Manual) Monocytes # (Manual) PT 16.9 H INR 1.24 H D-Dimer ABG pH ABG pO2 ABG HCO3 ABG O2 Saturation ABG Base Excess ABG Hemoglobin Oxyhemoglobin Sodium Potassium Chloride Carbon Dioxide BUN 31 H Creatinine Glucose 104 H POC Glucose 110 H Lactic Acid Calcium 7.9 L Phosphorus Magnesium AST ALT Alkaline Phosphatase Lactate Dehydrogenase Troponin T C-Reactive Protein NT-Pro-B Natriuret Pep Total Protein Albumin LDL Cholesterol Direct Vitamin B12 Crossmatch 11/26/21 11/27/21 11/27/21 23:55 07:40 07:40 WBC RBC 3.18 L Hgb 8.5 L Hct 27.0 L MCV MCH 27 L MCHC RDW 21.2 H Plt Count Seg Neuts % (Manual) Lymphocytes % (Manual) Seg Neutrophils # Man Lymphocytes # (Manual) Monocytes # (Manual) PT INR D-Dimer ABG pH ABG pO2 ABG HCO3 ABG O2 Saturation ABG Base Excess ABG Hemoglobin Oxyhemoglobin Sodium Potassium Chloride Carbon Dioxide BUN 27 H Creatinine Glucose 112 H POC Glucose 63 L Lactic Acid Calcium 7.6 L Phosphorus Magnesium AST ALT Alkaline Phosphatase Lactate Dehydrogenase Troponin T C-Reactive Protein NT-Pro-B Natriuret Pep Total Protein Albumin LDL Cholesterol Direct Vitamin B12 Crossmatch 11/27/21 11/27/21 11/27/21 12:04 13:40 13:40 WBC RBC 3.31 L Hgb 8.7 L Hct 28.0 L MCV MCH 26 L MCHC RDW 20.7 H Plt Count Seg Neuts % (Manual) Lymphocytes % (Manual) Seg Neutrophils # Man Lymphocytes # (Manual) Monocytes # (Manual) PT INR D-Dimer ABG pH ABG pO2 ABG HCO3 ABG O2 Saturation ABG Base Excess ABG Hemoglobin Oxyhemoglobin Sodium 136 L Potassium Chloride Carbon Dioxide BUN 25 H Creatinine Glucose 127 H POC Glucose 109 H Lactic Acid Calcium 7.6 L Phosphorus Magnesium 1.40 L AST ALT Alkaline Phosphatase Lactate Dehydrogenase Troponin T C-Reactive Protein NT-Pro-B Natriuret Pep Total Protein Albumin LDL Cholesterol Direct Vitamin B12 Crossmatch 11/27/21 11/27/21 11/28/21 17:44 23:33 12:20 WBC RBC Hgb Hct MCV MCH MCHC RDW Plt Count Seg Neuts % (Manual) Lymphocytes % (Manual) Seg Neutrophils # Man Lymphocytes # (Manual) Monocytes # (Manual) PT INR D-Dimer ABG pH ABG pO2 ABG HCO3 ABG O2 Saturation ABG Base Excess ABG Hemoglobin Oxyhemoglobin Sodium Potassium Chloride Carbon Dioxide BUN Creatinine Glucose POC Glucose 107 H 108 H 114 H Lactic Acid Calcium Phosphorus Magnesium AST ALT Alkaline Phosphatase Lactate Dehydrogenase Troponin T C-Reactive Protein NT-Pro-B Natriuret Pep Total Protein Albumin LDL Cholesterol Direct Vitamin B12 Crossmatch 11/29/21 11/29/21 11/29/21 00:09 03:20 03:20 WBC RBC 3.05 L Hgb 8.2 L Hct 25.8 L MCV MCH 27 L MCHC RDW 20.9 H Plt Count Seg Neuts % (Manual) Lymphocytes % (Manual) Seg Neutrophils # Man Lymphocytes # (Manual) Monocytes # (Manual) PT INR D-Dimer ABG pH ABG pO2 ABG HCO3 ABG O2 Saturation ABG Base Excess ABG Hemoglobin Oxyhemoglobin Sodium 133 L Potassium Chloride Carbon Dioxide BUN 24 H Creatinine Glucose 137 H POC Glucose 134 H Lactic Acid Calcium 7.4 L Phosphorus Magnesium AST ALT Alkaline Phosphatase Lactate Dehydrogenase Troponin T C-Reactive Protein NT-Pro-B Natriuret Pep Total Protein Albumin LDL Cholesterol Direct Vitamin B12 Crossmatch 11/29/21 11/29/21 11/29/21 05:38 11:39 17:11 WBC RBC Hgb Hct MCV MCH MCHC RDW Plt Count Seg Neuts % (Manual) Lymphocytes % (Manual) Seg Neutrophils # Man Lymphocytes # (Manual) Monocytes # (Manual) PT INR D-Dimer ABG pH ABG pO2 ABG HCO3 ABG O2 Saturation ABG Base Excess ABG Hemoglobin Oxyhemoglobin Sodium Potassium Chloride Carbon Dioxide BUN Creatinine Glucose POC Glucose 117 H 143 H 124 H Lactic Acid Calcium Phosphorus Magnesium AST ALT Alkaline Phosphatase Lactate Dehydrogenase Troponin T C-Reactive Protein NT-Pro-B Natriuret Pep Total Protein Albumin LDL Cholesterol Direct Vitamin B12 Crossmatch 11/29/21 11/30/21 11/30/21 20:15 05:40 05:40 WBC 12.6 H RBC 3.41 L Hgb 9.1 L Hct 28.9 L MCV MCH 27 L MCHC RDW 20.4 H Plt Count Seg Neuts % (Manual) Lymphocytes % (Manual) Seg Neutrophils # Man Lymphocytes # (Manual) Monocytes # (Manual) PT INR D-Dimer ABG pH ABG pO2 ABG HCO3 ABG O2 Saturation ABG Base Excess ABG Hemoglobin Oxyhemoglobin Sodium Potassium Chloride Carbon Dioxide BUN 24 H Creatinine Glucose 131 H POC Glucose Lactic Acid Calcium 7.6 L Phosphorus Magnesium AST ALT Alkaline Phosphatase Lactate Dehydrogenase Troponin T 0.045 H C-Reactive Protein NT-Pro-B Natriuret Pep Total Protein Albumin LDL Cholesterol Direct 25 L Vitamin B12 Crossmatch 11/30/21 11/30/21 12/01/21 11:29 16:51 05:00 WBC RBC 2.97 L Hgb 8.0 L Hct 25.0 L MCV MCH 27 L MCHC RDW 20.8 H Plt Count Seg Neuts % (Manual) Lymphocytes % (Manual) Seg Neutrophils # Man Lymphocytes # (Manual) Monocytes # (Manual) PT INR D-Dimer ABG pH ABG pO2 ABG HCO3 ABG O2 Saturation ABG Base Excess ABG Hemoglobin Oxyhemoglobin Sodium Potassium Chloride Carbon Dioxide BUN Creatinine Glucose POC Glucose 123 H 114 H Lactic Acid Calcium Phosphorus Magnesium AST ALT Alkaline Phosphatase Lactate Dehydrogenase Troponin T C-Reactive Protein NT-Pro-B Natriuret Pep Total Protein Albumin LDL Cholesterol Direct Vitamin B12 Crossmatch 12/01/21 12/01/21 12/01/21 05:00 05:25 11:54 WBC RBC Hgb Hct MCV MCH MCHC RDW Plt Count Seg Neuts % (Manual) Lymphocytes % (Manual) Seg Neutrophils # Man Lymphocytes # (Manual) Monocytes # (Manual) PT INR D-Dimer ABG pH ABG pO2 ABG HCO3 ABG O2 Saturation ABG Base Excess ABG Hemoglobin Oxyhemoglobin Sodium 136 L Potassium Chloride Carbon Dioxide BUN 24 H Creatinine Glucose 117 H POC Glucose 108 H 107 H Lactic Acid Calcium 7.5 L Phosphorus Magnesium 1.60 L AST ALT Alkaline Phosphatase Lactate Dehydrogenase Troponin T C-Reactive Protein NT-Pro-B Natriuret Pep Total Protein Albumin LDL Cholesterol Direct Vitamin B12 Crossmatch 12/01/21 12/02/21 12/02/21 17:40 00:07 04:20 WBC RBC 2.92 L Hgb 7.7 L Hct 24.3 L MCV MCH 26 L MCHC RDW 20.5 H Plt Count Seg Neuts % (Manual) Lymphocytes % (Manual) Seg Neutrophils # Man Lymphocytes # (Manual) Monocytes # (Manual) PT INR D-Dimer ABG pH ABG pO2 ABG HCO3 ABG O2 Saturation ABG Base Excess ABG Hemoglobin Oxyhemoglobin Sodium Potassium Chloride Carbon Dioxide BUN Creatinine Glucose POC Glucose 123 H 110 H Lactic Acid Calcium Phosphorus Magnesium AST ALT Alkaline Phosphatase Lactate Dehydrogenase Troponin T C-Reactive Protein NT-Pro-B Natriuret Pep Total Protein Albumin LDL Cholesterol Direct Vitamin B12 Crossmatch 12/02/21 12/02/21 12/02/21 04:20 11:17 18:20 WBC RBC Hgb Hct MCV MCH MCHC RDW Plt Count Seg Neuts % (Manual) Lymphocytes % (Manual) Seg Neutrophils # Man Lymphocytes # (Manual) Monocytes # (Manual) PT INR D-Dimer ABG pH ABG pO2 ABG HCO3 ABG O2 Saturation ABG Base Excess ABG Hemoglobin Oxyhemoglobin Sodium 135 L Potassium Chloride Carbon Dioxide BUN 26 H Creatinine Glucose 121 H POC Glucose 117 H 113 H Lactic Acid Calcium 7.4 L Phosphorus Magnesium AST ALT Alkaline Phosphatase Lactate Dehydrogenase Troponin T C-Reactive Protein NT-Pro-B Natriuret Pep Total Protein Albumin LDL Cholesterol Direct Vitamin B12 Crossmatch 12/03/21 12/03/21 12/03/21 00:12 04:00 04:00 WBC RBC 2.99 L Hgb 7.8 L Hct 24.6 L MCV MCH 26 L MCHC RDW 20.2 H Plt Count Seg Neuts % (Manual) Lymphocytes % (Manual) Seg Neutrophils # Man Lymphocytes # (Manual) Monocytes # (Manual) PT INR D-Dimer ABG pH ABG pO2 ABG HCO3 ABG O2 Saturation ABG Base Excess ABG Hemoglobin Oxyhemoglobin Sodium 136 L Potassium Chloride Carbon Dioxide BUN 27 H Creatinine Glucose 133 H POC Glucose 121 H Lactic Acid Calcium 7.5 L Phosphorus Magnesium AST ALT Alkaline Phosphatase Lactate Dehydrogenase Troponin T C-Reactive Protein NT-Pro-B Natriuret Pep Total Protein Albumin LDL Cholesterol Direct Vitamin B12 Crossmatch 12/03/21 12/03/21 12/03/21 06:30 11:13 16:00 WBC RBC Hgb Hct MCV MCH MCHC RDW Plt Count Seg Neuts % (Manual) Lymphocytes % (Manual) Seg Neutrophils # Man Lymphocytes # (Manual) Monocytes # (Manual) PT INR D-Dimer ABG pH ABG pO2 ABG HCO3 ABG O2 Saturation ABG Base Excess ABG Hemoglobin Oxyhemoglobin Sodium Potassium Chloride Carbon Dioxide BUN Creatinine Glucose POC Glucose 129 H 125 H 125 H Lactic Acid Calcium Phosphorus Magnesium AST ALT Alkaline Phosphatase Lactate Dehydrogenase Troponin T C-Reactive Protein NT-Pro-B Natriuret Pep Total Protein Albumin LDL Cholesterol Direct Vitamin B12 Crossmatch 12/03/21 12/04/21 12/04/21 23:32 04:00 05:36 WBC RBC Hgb Hct MCV MCH MCHC RDW Plt Count Seg Neuts % (Manual) Lymphocytes % (Manual) Seg Neutrophils # Man Lymphocytes # (Manual) Monocytes # (Manual) PT INR D-Dimer ABG pH ABG pO2 ABG HCO3 ABG O2 Saturation ABG Base Excess ABG Hemoglobin Oxyhemoglobin Sodium Potassium 3.5 L Chloride Carbon Dioxide BUN 26 H Creatinine 0.5 L Glucose 151 H POC Glucose 133 H 142 H Lactic Acid Calcium 8.3 L Phosphorus Magnesium AST ALT Alkaline Phosphatase Lactate Dehydrogenase Troponin T C-Reactive Protein NT-Pro-B Natriuret Pep Total Protein Albumin LDL Cholesterol Direct Vitamin B12 Crossmatch 12/04/21 12/04/21 12/05/21 11:24 15:58 04:36 WBC RBC Hgb Hct MCV MCH MCHC RDW Plt Count Seg Neuts % (Manual) Lymphocytes % (Manual) Seg Neutrophils # Man Lymphocytes # (Manual) Monocytes # (Manual) PT INR D-Dimer ABG pH ABG pO2 ABG HCO3 ABG O2 Saturation ABG Base Excess ABG Hemoglobin Oxyhemoglobin Sodium Potassium Chloride Carbon Dioxide BUN 21 H Creatinine 0.5 L Glucose 119 H POC Glucose 130 H 111 H Lactic Acid Calcium 8.3 L Phosphorus Magnesium AST ALT Alkaline Phosphatase Lactate Dehydrogenase Troponin T C-Reactive Protein NT-Pro-B Natriuret Pep Total Protein Albumin LDL Cholesterol Direct Vitamin B12 Crossmatch 12/05/21 12/05/21 12/05/21 05:15 10:40 11:12 WBC RBC 2.98 L Hgb 8.1 L Hct 24.6 L MCV MCH 27 L MCHC RDW 20.8 H Plt Count Seg Neuts % (Manual) Lymphocytes % (Manual) Seg Neutrophils # Man Lymphocytes # (Manual) Monocytes # (Manual) PT INR D-Dimer ABG pH ABG pO2 ABG HCO3 ABG O2 Saturation ABG Base Excess ABG Hemoglobin Oxyhemoglobin Sodium Potassium Chloride Carbon Dioxide BUN Creatinine Glucose POC Glucose 107 H 110 H Lactic Acid Calcium Phosphorus Magnesium AST ALT Alkaline Phosphatase Lactate Dehydrogenase Troponin T C-Reactive Protein NT-Pro-B Natriuret Pep Total Protein Albumin LDL Cholesterol Direct Vitamin B12 Crossmatch 12/05/21 12/06/21 12/06/21 23:39 04:25 04:25 WBC RBC 2.95 L Hgb 7.9 L Hct 24.7 L MCV MCH 27 L MCHC RDW 20.9 H Plt Count Seg Neuts % (Manual) Lymphocytes % (Manual) Seg Neutrophils # Man Lymphocytes # (Manual) Monocytes # (Manual) PT INR D-Dimer ABG pH ABG pO2 ABG HCO3 ABG O2 Saturation ABG Base Excess ABG Hemoglobin Oxyhemoglobin Sodium Potassium Chloride Carbon Dioxide BUN 22 H Creatinine 0.5 L Glucose 136 H POC Glucose 118 H Lactic Acid Calcium 8.2 L Phosphorus Magnesium AST ALT Alkaline Phosphatase Lactate Dehydrogenase Troponin T C-Reactive Protein NT-Pro-B Natriuret Pep Total Protein Albumin LDL Cholesterol Direct Vitamin B12 Crossmatch 12/06/21 12/06/21 12/07/21 05:28 11:27 04:00 WBC RBC Hgb 7.2 L Hct 21.8 L MCV MCH MCHC RDW Plt Count Seg Neuts % (Manual) Lymphocytes % (Manual) Seg Neutrophils # Man Lymphocytes # (Manual) Monocytes # (Manual) PT INR D-Dimer ABG pH ABG pO2 ABG HCO3 ABG O2 Saturation ABG Base Excess ABG Hemoglobin Oxyhemoglobin Sodium Potassium Chloride Carbon Dioxide BUN Creatinine Glucose POC Glucose 142 H 126 H Lactic Acid Calcium Phosphorus Magnesium AST ALT Alkaline Phosphatase Lactate Dehydrogenase Troponin T C-Reactive Protein NT-Pro-B Natriuret Pep Total Protein Albumin LDL Cholesterol Direct Vitamin B12 Crossmatch 12/07/21 12/07/21 12/07/21 04:00 05:30 11:12 WBC RBC Hgb Hct MCV MCH MCHC RDW Plt Count Seg Neuts % (Manual) Lymphocytes % (Manual) Seg Neutrophils # Man Lymphocytes # (Manual) Monocytes # (Manual) PT INR D-Dimer ABG pH ABG pO2 ABG HCO3 ABG O2 Saturation ABG Base Excess ABG Hemoglobin Oxyhemoglobin Sodium Potassium Chloride Carbon Dioxide BUN 22 H Creatinine Glucose 119 H POC Glucose 121 H 124 H Lactic Acid Calcium 8.0 L Phosphorus Magnesium AST ALT Alkaline Phosphatase Lactate Dehydrogenase Troponin T C-Reactive Protein NT-Pro-B Natriuret Pep Total Protein Albumin LDL Cholesterol Direct Vitamin B12 Crossmatch 12/08/21 12/08/21 12/08/21 04:00 04:00 05:39 WBC RBC 2.81 L Hgb 7.7 L Hct 23.5 L MCV MCH MCHC RDW 21.2 H Plt Count Seg Neuts % (Manual) Lymphocytes % (Manual) Seg Neutrophils # Man Lymphocytes # (Manual) Monocytes # (Manual) PT INR D-Dimer ABG pH ABG pO2 ABG HCO3 ABG O2 Saturation ABG Base Excess ABG Hemoglobin Oxyhemoglobin Sodium 135 L Potassium Chloride Carbon Dioxide BUN 23 H Creatinine Glucose 109 H POC Glucose 112 H Lactic Acid Calcium Phosphorus Magnesium AST ALT Alkaline Phosphatase Lactate Dehydrogenase Troponin T C-Reactive Protein NT-Pro-B Natriuret Pep Total Protein Albumin LDL Cholesterol Direct Vitamin B12 Crossmatch 12/08/21 12/09/21 12/09/21 11:03 04:20 04:20 WBC RBC 2.67 L Hgb 7.6 L Hct 22.1 L MCV MCH MCHC RDW 20.8 H Plt Count Seg Neuts % (Manual) Lymphocytes % (Manual) Seg Neutrophils # Man Lymphocytes # (Manual) Monocytes # (Manual) PT INR D-Dimer ABG pH ABG pO2 ABG HCO3 ABG O2 Saturation ABG Base Excess ABG Hemoglobin Oxyhemoglobin Sodium 135 L Potassium Chloride 97.8 L Carbon Dioxide BUN 26 H Creatinine Glucose 119 H POC Glucose 108 H Lactic Acid Calcium 7.7 L Phosphorus Magnesium AST ALT Alkaline Phosphatase Lactate Dehydrogenase Troponin T C-Reactive Protein NT-Pro-B Natriuret Pep Total Protein Albumin LDL Cholesterol Direct Vitamin B12 Crossmatch Allied health notes reviewed: nursing
[2021-12-09] MEDS: busPIRone 5 MG TAB PO SCH ×2 (10:24→21:18)
[2021-12-09] MEDS: METOPROLOL TARTRATE 25 MG TAB PO SCH ×2 (10:24→21:19)
[2021-12-09] MEDS: DOCUSATE SODIUM 100 MG/10 ML ORAL LIQD PO SCH ×2 (10:24→21:19)
[2021-12-09] MEDS: LANSOPRAZOLE 30 MG SOLUTAB FEEDTUBE SCH ×2 (10:24→21:19)
[2021-12-09] MEDS: GABAPENTIN 100 MG CAP PO SCH (10:24)
[2021-12-09] MEDS: SENNOSIDES ORAL LIQD 8.8 MG/5 ML ORAL LIQD PO SCH ×2 (10:24→21:21)
[2021-12-09] MEDS: FUROSEMIDE 20 MG TAB PO SCH (10:25)
[2021-12-09] MEDS: POLYETHYLENE GLYCOL 3350 17 GM POWDER PO SCH (10:25)
--- NOTE | 2021-12-09 17:20 | Progress Note ---
Assessment and Plan Assessment and plan: This is a 81-year-old female with known history of diabetes mellitus, hypertension, PPM, and arthritis admitted for sepsis and acute hypoxia respiratory failure 2/2 bilateral pneumonia requiring intubation and ventilatory support Assessment and Plan Neuro : Acute encephalopathy (resolved), agitation/ anxiety -Neurology consulted, appreciate recommendations -CT brain showed no acute events -EEG interpreted as abnormal record due to diffuse slowing noted throughout the recording, suggestive of encephalopathic process and/or drug effect, possibilities of postictal state cannot be totally excluded. Clinical correlation is in order -MRI brain not obtained-> patient has metal in her body -Repeat CT head with no acute findings -Reorientation as needed -Ammonia 42, B12 1823, TSH 1.5 -BuSpar, fentanyl patch, Seroquel, [place], Xanax, gabapentin Cardio: Heart failure with reduced EF, h/o chronic heart block s/p PPM, HTN/CAD s/p PCI (2004), Moderate pulmonary HTN, cardiomyopathy -s/p vasopressor support with levophed -11/04 echocardiogram shows EF 30 to 35%, Moderate pulmonary HTN RVSP 49 -Cardiology consulted, appreciate recommendations -Continue beta-charleen and statin therapy -Started midodrine -Not on aspirin due to allergy -Blood pressure monitoring per protocol -As needed nitroglycerin Resp: Acute hypoxic respiratory failure secondary to bilateral pneumonia, left pleural effusion. Right pneumothorax (resolved) -COVID-19 PCR negative -Intubated on 11/06 with 6.00 ETT at 18 at the lip and changed over bougie on 11/11-7.50 ETT at 20 at the lip -See RT notes for titration -PSV today -Surgery consult for trach -Received trach/PEG on 11/26 -S/p bedside bronchoscopy on 11/11 complicated by pneumothorax -S/p chest tube placement for right pneumothorax and dislodgment by patient on 11/15 -ABG/CXR per CCM -VAP bundle -Right chest wall ultrasound showed pleural effusion s/p chest tube -Review right chest wall ultrasound pending -Restarted on Lasix -SPO2 monitoring -Mucomyst every 8 -Albuterol every 8 GI: S/p GI bleed, duodenal ulcer, transaminitis -GI consulted, appreciate recommendations -Nutrition consult for tube feeding -BR: Senokot, MiraLAX -s/p peg 11/26 -H2 charleen -Carafate -24-hour +792 ml -BM 11/28 -Gastric occult positive : Urinary retention, hyponatremia, hypochloremia -Gamble catheter in place -Strict intake and output -Trend BMP ID: Septic shock (POA), bilateral pneumonia, bacteremia -Infectious disease consulted, appreciate recommendations -COVID-19 PCR negative -Presented with fevers, leukocytosis and hypotension -11/04 blood cultures positive with a group B strep bacteremia 12/19 however repeat blood cultures on the with no growth to date -Echo showed no evidence of vegetation -ABX therapy: Ceftriaxone (), vancomycin (11/05, ), clindamycin ), cefepime , ) -Monitor WBC and fever curve -Recultured on 11/11 with NGTD -Bedside bronchoscopy for mucous plug on CXR 11/11 Heme: Acute DVT in the right external iliac vein, common femoral vein, superior aspect of femoral vein, Acute microcytic anemia -Evidenced on bilateral upper lower extremity ultrasound -S/p 5 unit PRBC -Trend CBC -Transfuse for hemoglobin less than 7 -S/p IVC filter Endo: h/o DM and hypothyroidism -Continue home Synthroid -SSI -Accu-Cheks every 6 -Avoid hypoglycemia The high probability of a clinically significant, sudden or life threatening deterioration of the [multi] system(s) required my full and direct attention, intervention and personal management. The aggregate critical care time was [60] minutes. This time is in addition to time spent performing reported procedures but includes the following: [x] Data Review and interpretation [x] Patient assessment and monitoring of vital signs [x] Documentation [x] Medication orders and management Disposition Plan: ICU Total Time Spent with Patient (Minutes): 60 History Interval history: This is an 82-year-old female with DM, HTN , PPM and arthritis who presented to the emergency department on 11/04 for shortness of breath ongoing for the past 3 days, cough and according to family a fever of 102.2. Upon arrival of EMS patient was found to be tachypneic and hypoxic with SPO2 of 76% on room air which later improved to 88% on nonrebreather. Work-up in the emergency department included a CXR which showed bilateral interstitial pulmonary edema with bilateral pleural effusions and bibasilar opacities, leukocytosis and anemia with a hemoglobin of 6.1. Patient was admitted to the hospitalist service with acute anemia, acute hypoxic respiratory failure, bilateral pneumonia and COVID-19 PUI with consults to pulmonology, infectious disease and later cardiology. Patient was eventually intubated in the emergency department on 11/06. Hospital Course to date: 11/04/2021: Empiric therapy with iv levaquin/vancomycin. COVID PCR pending. Will consult ID. PCCM consulted, will follow recs. Hypotensive this AM, ordered bolus and fluids at 150 cc/hr. May require pressor support if bp does not improve. 11/05/2021: GBS on bcx +, currently on rocephin IV. Currently on bipap due to respiratory distress overnight. Worsening BL opacities on CXR. May be volume overload vs pneumonia. Unfortunately bp too low for lasix at this point. WIll continue levophed and bipap. Once able to tolerate, may do trial of albumin/lasix. Call attempt made to Niraj, no response. Will try again tomorrow to update. 11/06/2021: Decompensated overnight requiring intubation. CXR shows worsening interstitial infiltrates. Currenlty on dopamine, levophed, vasopressin. PICC line ordered. Advised RN to place gamble for I/O monitoring. Would benefit from diuresis but very volume overloaded. Prognosis guarded 11/08: Off sedation this am, remains unresponsive only grimace to pain. Hold all sedatives agents for now, patient is off pressors this am. Hypernatremia from today's lab- D5W X1bag, and low K repleted, repeat lab in the am. Severe constipation also noted from KUB, BR added. 11/09: Sudden SPO2 drop in the 60s this am. Patient was manually bagged and deep suctioned. Patient is currently stable on the vent, repeat CXR with no significant change. D/w CCM Mucomyst and brochodilator added. Patient mentation is unchanged, continue to hold off on sedative agents. Neurology consulted. 11/10: Acute DVT noted on bilateral lower extremity Doppler ultrasound therefore she was started on Lovenox treatment dose. Failed SBT. Hypernatremia and hyperchloremia noted, free water flush adjusted. 11/11: Patient noted to be febrile with increasing of the cytosis, UA/BC sent and CXR ordered. ID escalated antibiotics to cefepime. CXR demonstrated mucous plug, bedside bronchoscopy was performed and O ETT was changed over bougie from 6 cm to 7.5. Patient was noted to have a pneumothorax postprocedure and chest tube was placed. Family updated by [facility]. Free water flush increased and will add Jaswant supplementation. 11/12: Patient not noted to follow commands, hypernatremia worsen/persist, increasing free water flush, potassium and magnesium and phosphorus repleted. Hemoglobin noted to be 7.1/24.5 from 7.03/12 yesterday. We will continue to trend and monitor. Vent changes per CCM. Repeat CXR showed no residual pneumothorax. Consider waterseal tomorrow. Given persistent leukocytosis antibiotics escalated to cefepime per ID. 11/13: Remains on cefepime and vancomycin, vent changes per CCM. Anemia noted and given 1 unit PRBC. And beta-charleen held in setting of Levophed drip infusing. Remains on fentanyl drip. 11/14: Patient put on CPAP trial by [facility], will continue chest tube until after extubation. Will rest on assist control. CT brain was cancelled by radiation control health physicist and reordered. 11/15: Patient removed chest tube overnight. Will obtain cxr. remains on low dose levo. CTH completed with no acute findings. RT to place on CPAP. 11/16: Hypernatremia/hyperchloremia noted on the increase of day water flushes. Anemia noted and ordered PRBC. asked RT to place on cpap but not done yet 11/17: Patient remains on the vent, awake and following commands. H&H stable s/p 2units PRBCs. GI on consult, no intervention at this time. Will continue protonix gtt and serial H&H Q6hrs. Keep patient NPO for now, D5w added for hy pernatremia and NPO status. Plan for IVC filter placement today by Vascular. 11/18: Patient is s/p IVC filter. H&H continue to trend down, hbg 6.1 this am, 1 unit of PRBCs ordered. Plan for possible EGD today by GI. Keep patient NPO, continue PPI drip and serial H&H Q6hrs. Electrolytes repleted, repeat lab in the am 11/19: S/p EGD- larger duodenal ulcer noted, see operative note. GI recommendations noted also noted. H&H stable this am. Keep patient on protonix gtt for now. Will keep patient NPO, continue IVF and serial H&H for now. Electrolytes repleted, repeat labs in the am 11/20: Very agitated and restless this am, fentanyl gtt resumed. Patient remains on protonix gtt, H&H remains stable. Will switch protonix gtt to IV BID, continue carafate and okay to resume meds at this time. Will F/u with GI to see if TF can be resumed. Gamble was reinserted overnight for retention. Electrolytes repleted, repeat in the am. Plan for possible PST today for possible extubation per CCM. 11/21: Patient is now on seroquel and patient's home buspar resumed. Patient more calm this morning, fentanyl gtt is off. H&H remains stable and patient is tolerating TF. Patient had a runs of Vtach/PVCs this am, BB added per Cardio. Continue daily PS and wean trial for possible extubation. 11/22: Back on fentanyl gtt overnight , RASS o to -1, following commands. Patient failed PST this am due to increased work of breathing and low SPO2, ABG pending. Patient is also with worsen pitting edema, lasix is still on hold. Will discuss with cardio and CCM to possibly resume lasix. 11/23: MARIA DEL CARMEN overnight. Patient failed PST again this am. Per CCM plan for possible trach and PEG, hold off on IV lasix for now. General surgery consulted and family is aware of possible Trach and PEG. 11/24: Trach/PEG pending this week, continue SBT/SAT as tolerated. No acute events reported overnight. 11/25: Patient was n.p.o. overnight and will remain n.p.o. tonight for trach/PEG tomorrow morning. She failed to support trial again. KUB obtained due to distended belly. 11/26: Patient scheduled for tracheostomy and PEG tube placement today, has been n.p.o. since midnight. No acute events reported overnight. [facility] ordered simethicone scheduled. 11/27: No acute events reported overnight, patient received trach/PEG yesterday. Has been on feedings since last night. Still awaiting LTAC placement. 11/28: Patient magnesium repleted, repeat a.m. labs, SBT 11/29: Patient complains of chest pain but ECG obtained which showed no acute findings, ordered troponin. Patient failed CPAP yesterday and was trialed again today. levophed was restarted but will aggressively wean 11/30: Patient failed SBT. Continue supportive care. Started gabapentin today 12/01: MARIA DEL CARMEN overnight. Continue daily PST. Case management to arrange possible pl acement 12/02: Report of dark stools overnight, patient is hemodynamically stable. H&H stable, patient is on PPI. Will continue to trend H&H. Continue daily PST as tolerated. Awaiting LTAC vs SNF placement. 12/03: Hypotensive overnight, requiring low dose pressors. S/p X3 days of gentle diurese. Will continue to monitor, wean off pressors as tolerated for MAP of 65. Patient Failed PST yesterday, case management to follow up with insurance for possible LTAC placement. Continue daily PST as tolerated. PT eval and treat ordered. 12/04: Increased agitation and anxiety overnight, remains on buspar and seroquel, trazadone added to promote rest. Patient is now working with PT, keep patient engage and awake during the day so she can rest at night. No BM for over 5 days, BR was adjusted. Patient did not tolerate PST again yesterday, continue daily PST as tolerated. Continue to titrate pressor for MAP above 65. Pending possible LTAC placement, case management to arrange. 12/05: Still not getting much rest overnight, will add melatonin for sleep. Continue to engage patient during the day and promote rest at night. TF was held due to concern for possible bleeding, H&H remains stable and stools normal this am. Resume TF and continue PPI and carafate. Remains on low dose levophed, titrate as tolerated. Continue daily PST. Possible LTAC placement, awaiting approval. 12/06: MARIA DEL CARMEN overnight. Patient rested overnight. Continue supportive measures. Daily PST as tolerated. Awaiting possible LTAC placement 12/07: MARIA DEL CARMEN overnight. Plan for Tpiece trial today. Continue current supportive measures. Possible LTAC placement 12/08: Patient placed on pressure support trial again today, started on Xanax, no acute events reported overnight. Awaiting insurance approval for LTAC. 12/09: Levophed discontinued, LTAC transfer denied, started on midodrine and Lasix, ultrasound chest pending, started on Xanax 0.[address] De León updated family at bedside today. Started on Dilaudid every 3 hours as needed. Hospitalist Physical - Constitutional Vitals: Temp Pulse Resp BP Pulse Ox 97.8 F 62 14 123/46 99 12/09/21 12:00 12/09/21 16:00 12/09/21 16:00 12/09/21 16:00 12/09/21 16:30 General appearance: Present: no acute distress, other (Trah and on the vent) - EENT Eyes: Present: PERRL, EOM intact ENT: hearing intact, clear oral mucosa, dentition normal - Neck Neck: Present: normal ROM - Respiratory Respiratory effort: normal Respiratory: bilateral: diminished - Cardiovascular Rhythm: regular Heart Sounds: Present: S1 & S2. Absent: systolic murmur - Extremities Extremities: no ischemia, pulses intact, pulses symmetrical, No edema, normal temperature, normal color Peripheral Pulses: within normal limits - Abdominal General gastrointestinal: soft, non-tender, non-distended, normal bowel sounds - Integumentary Integumentary: Present: warm, dry - Psychiatric Psychiatric: cooperative - Neurologic Neurologic: CNII-XII intact, no focal deficits, moves all extremities - Allied Health Allied health notes reviewed: nursing, RT, social work HEART Score - HEART Score Troponin: Troponin T 0.045 ng/mL (0.00-0.029) H 11/29/21 20:15 Results - Labs CBC & Chem 7: 12/09/21 04:20 12/09/21 04:20 Labs: Laboratory Last Values WBC 8.5 K/mm3 (4.5-11.0) 12/09/21 04:20 RBC 2.67 M/mm3 (3.65-5.03) L 12/09/21 04:20 Hgb 7.6 gm/dl (10.1-14.3) L 12/09/21 04:20 Hct 22.1 % (30.3-42.9) L 12/09/21 04:20 MCV 83 fl (79-97) 12/09/21 04:20 MCH 28 pg (28-32) 12/09/21 04:20 MCHC 34 % (30-34) 12/09/21 04:20 RDW 20.8 % (13.2-15.2) H 12/09/21 04:20 Plt Count 175 K/mm3 (140-440) 12/09/21 04:20 Add Manual Diff Complete 11/16/21 15:25 Total Counted 100 11/16/21 15:25 Seg Neutrophils % French Professor 11/06/21 15:50 Seg Neuts % (Manual) 87.0 % (40.0-70.0) H 11/16/21 15:25 Band Neutrophils % 0 % 11/16/21 15:25 Lymphocytes % (Manual) 8.0 % (13.4-35.0) L 11/16/21 15:25 Reactive Lymphs % (Man) 0 % 11/16/21 15:25 Monocytes % (Manual) 5.0 % (0.0-7.3) 11/16/21 15:25 Eosinophils % (Manual) 0 % (0.0-4.3) 11/16/21 15:25 Basophils % (Manual) 0 % (0.0-1.8) 11/16/21 15:25 Metamyelocytes % 0 % 11/16/21 15:25 Myelocytes % 0 % 11/16/21 15:25 Promyelocytes % 0 % 11/16/21 15:25 Blast Cells % 0 % 11/16/21 15:25 Nucleated RBC % Not Reportable 11/16/21 15:25 Seg Neutrophils # Man 15.0 K/mm3 (1.8-7.7) H 11/16/21 15:25 Band Neutrophils # 0.0 K/mm3 11/16/21 15:25 Lymphocytes # (Manual) 1.4 K/mm3 (1.2-5.4) 11/16/21 15:25 Abs React Lymphs (Man) 0.0 K/mm3 11/16/21 15:25 Monocytes # (Manual) 0.9 K/mm3 (0.0-0.8) H 11/16/21 15:25 Eosinophils # (Manual) 0.0 K/mm3 (0.0-0.4) 11/16/21 15:25 Basophils # (Manual) 0.0 K/mm3 (0.0-0.1) 11/16/21 15:25 Metamyelocytes # 0.0 K/mm3 11/16/21 15:25 Myelocytes # 0.0 K/mm3 11/16/21 15:25 Promyelocytes # 0.0 K/mm3 11/16/21 15:25 Blast Cells # 0.0 K/mm3 11/16/21 15:25 WBC Morphology Not Reportable 11/16/21 15:25 Hypersegmented Neuts Not Reportable 11/16/21 15:25 Hyposegmented Neuts Not Reportable 11/16/21 15:25 Hypogranular Neuts Not Reportable 11/16/21 15:25 Smudge Cells Not Reportable 11/16/21 15:25 Toxic Granulation Not Reportable 11/16/21 15:25 Toxic Vacuolation Not Reportable 11/16/21 15:25 Dohle Bodies Not Reportable 11/16/21 15:25 Pelger-Huet Anomaly Not Reportable 11/16/21 15:25 Irina Rods Not Reportable 11/16/21 15:25 Platelet Estimate Consistent w auto 11/16/21 15:25 Clumped Platelets Rare 11/16/21 15:25 Plt Clumps, EDTA Not Reportable 11/16/21 15:25 Large Platelets Not Reportable 11/16/21 15:25 Giant Platelets Not Reportable 11/16/21 15:25 Platelet Satelliting Not Reportable 11/16/21 15:25 Plt Morphology Comment Not Reportable 11/16/21 15:25 RBC Morphology Not Reportable 11/16/21 15:25 Dimorphic RBCs Not Reportable 11/16/21 15:25 Polychromasia Not Reportable 11/16/21 15:25 Hypochromasia 2+ 11/16/21 15:25 Poikilocytosis Not Reportable 11/16/21 15:25 Anisocytosis 2+ 11/16/21 15:25 Microcytosis Not Reportable 11/16/21 15:25 Macrocytosis Not Reportable 11/16/21 15:25 Spherocytes Not Reportable 11/16/21 15:25 Pappenheimer Bodies Not Reportable 11/16/21 15:25 Sickle Cells Not Reportable 11/16/21 15:25 Target Cells 2+ 11/16/21 15:25 Tear Drop Cells Not Reportable 11/16/21 15:25 Ovalocytes Not Reportable 11/16/21 15:25 Helmet Cells Not Reportable 11/16/21 15:25 [place] Bodies Not Reportable 11/16/21 15:25 [place] Rings Not Reportable 11/16/21 15:25 Malcom Cells Not Reportable 11/16/21 15:25 Bite Cells Not Reportable 11/16/21 15:25 Crenated Cell Not Reportable 11/16/21 15:25 Elliptocytes Not Reportable 11/16/21 15:25 Acanthocytes (Spur) Not Reportable 11/16/21 15:25 Rouleaux Not Reportable 11/16/21 15:25 Hemoglobin C Crystals Not Reportable 11/16/21 15:25 Schistocytes Not Reportable 11/16/21 15:25 Malaria parasites Not Reportable 11/16/21 15:25 Godfrey Bodies Not Reportable 11/16/21 15:25 Hem Pathologist Commnt No 11/16/21 15:25 PT 16.9 Sec. (12.2-14.9) H 11/26/21 05:00 INR 1.24 (0.87-1.13) H 11/26/21 05:00 APTT 29.2 Sec. (24.2-36.6) 11/26/21 05:00 D-Dimer 2655.00 ng/mlDDU (0-234) H 11/11/21 04:28 ABG pH 7.449 pH Units (7.350-7.450) 11/21/21 16:00 ABG pCO2 32.1 mm Hg 11/21/21 16:00 ABG pO2 114.2 mm Hg (80.0-90.0) H 11/21/21 16:00 ABG HCO3 21.8 mmol/L (20.0-26.0) 11/21/21 16:00 ABG O2 Saturation 98.3 % (95.0-99.0) 11/21/21 16:00 ABG O2 Content 12.5 (0.0-44) 11/21/21 16:00 ABG Base Excess -1.7 mmol/L (-2.0-3.0) 11/21/21 16:00 ABG Hemoglobin 9.1 gm/dl (12.0-16.0) L 11/21/21 16:00 ABG Carboxyhemoglobin 1.9 % (0.0-5.0) 11/21/21 16:00 ABG Methemoglobin 0.5 % (0.0-1.5) 11/21/21 16:00 Oxyhemoglobin 96.0 % (95.0-99.0) 11/21/21 16:00 FiO2 30 % 11/21/21 16:00 Sodium 135 mmol/L (137-145) L 12/09/21 04:20 Potassium 4.1 mmol/L (3.6-5.0) 12/09/21 04:20 Chloride 97.8 mmol/L (98-107) L 12/09/21 04:20 Carbon Dioxide 26 mmol/L (22-30) 12/09/21 04:20 Anion Gap 15 mmol/L 12/09/21 04:20 BUN 26 mg/dL (7-17) H 12/09/21 04:20 Creatinine 0.7 mg/dL (0.6-1.2) 12/09/21 04:20 Estimated GFR > 60 ml/min 12/09/21 04:20 BUN/Creatinine Ratio 37 % 12/09/21 04:20 Glucose 119 mg/dL (65-100) H 12/09/21 04:20 POC Glucose 110 mg/dL (70-105) H 12/09/21 11:26 Lactic Acid 3.70 mmol/L (0.7-2.0) H* 11/03/21 22:32 Calcium 7.7 mg/dL (8.4-10.2) L 12/09/21 04:20 Phosphorus 3.50 mg/dL (2.5-4.5) 12/08/21 04:00 Magnesium 2.20 mg/dL (1.7-2.3) 12/08/21 04:00 Ferritin 52.6 ng/mL (10.0-200.0) 11/05/21 06:11 Total Bilirubin 0.50 mg/dL (0.1-1.2) 11/17/21 05:56 Direct Bilirubin < 0.2 mg/dL (0-0.2) 11/11/21 04:28 Indirect Bilirubin 0.1 mg/dL 11/11/21 04:28 AST 36 units/L (5-40) 11/17/21 05:56 ALT 47 units/L (7-56) 11/17/21 05:56 Alkaline Phosphatase 107 units/L (35-129) 11/17/21 05:56 Ammonia 42.0 umol/L (25-60) 11/10/21 14:08 Lactate Dehydrogenase 187 units/L (91-180) H 11/05/21 06:11 Troponin T 0.045 ng/mL (0.00-0.029) H 11/29/21 20:15 C-Reactive Protein 22.20 mg/dL (0.00-1.30) H 11/05/21 06:11 NT-Pro-B Natriuret Pep 7895 pg/mL (0-900) H 11/03/21 22:32 Total Protein 5.1 g/dL (6.3-8.2) L 11/17/21 05:56 Albumin 2.2 g/dL (3.9-5) L 11/17/21 05:56 Albumin/Globulin Ratio 0.8 % 11/17/21 05:56 Triglycerides 59 mg/dL (2-149) 11/29/21 20:15 Cholesterol 74 mg/dL (50-199) 11/29/21 20:15 LDL Cholesterol Direct 25 mg/dL (50-130) L 11/29/21 20:15 HDL Cholesterol 41 mg/dL (40-59) 11/29/21 20:15 Cholesterol/HDL Ratio 1.80 % 11/29/21 20:15 Vitamin B12 1823 pg/mL (211-911) H 11/10/21 14:08 TSH 1.510 mlU/mL (0.270-4.200) 11/10/21 14:08 Urine Color Yellow (Yellow) 11/11/21 09:00 Urine Turbidity Slightly-cloudy (Clear) 11/11/21 09:00 Urine pH 5.0 (5.0-7.0) 11/11/21 09:00 Ur Specific [place] 1.009 (1.003-1.030) 11/11/21 09:00 Urine Protein <15 mg/dl mg/dL (Negative) 11/11/21 09:00 Urine Glucose (UA) Neg mg/dL (Negative) 11/11/21 09:00 Urine Ketones Neg mg/dL (Negative) 11/11/21 09:00 Urine Blood Mod (Negative) 11/11/21 09:00 Urine Nitrite Neg (Negative) 11/11/21 09:00 Urine Bilirubin Neg (Negative) 11/11/21 09:00 Urine Urobilinogen < 2.0 mg/dL (<2.0) 11/11/21 09:00 Ur Leukocyte Esterase Neg (Negative) 11/11/21 09:00 Urine WBC (Auto) < 1.0 /HPF (0.0-6.0) 11/11/21 09:00 Urine RBC (Auto) < 1.0 /HPF (0.0-6.0) 11/11/21 09:00 Coronavirus (PCR) Negative (Negative) 11/10/21 08:30 Blood Type O POSITIVE 11/18/21 10:45 Antibody Screen Negative 11/18/21 10:45 Crossmatch See Detail 11/18/21 10:45 Gamble/IV: Voiding Method Indwelling Catheter Active Medications - Current Medications Current Medications: Generic Name Dose Route Start Last Admin Trade Name Freq PRN Reason Stop Dose Admin Hydrocodone Bitart/Acetaminophen 1 each 11/21/21 10:00 12/09/21 08:27 Hydrocodone/Acetaminophen 10-325mg Tab FEEDTUBE 1 each TID YOSSI Administration Alprazolam 0.5 mg 12/09/21 08:00 12/09/21 08:28 Alprazolam 0.5 Mg Tab PO 0.5 mg Q8H YOSSI Administration Lipase/Protease/Amylase 1 each 11/08/21 11:09 Lipase 10,500/Protease 25,000/Amylase 43,750 (Units) Dr Lema FEEDTUBE PRN PRN For Clogged Feeding Tube Buspirone HCl 7.5 mg 11/17/21 22:00 12/09/21 10:24 Buspirone 5 Mg Tab PO 7.5 mg BID YOSSI Administration Dextrose 0 ml 11/10/21 10:52 11/21/21 16:27 Dextrose 10% *Hypoglycemia IV 50 ml PRN PRN Administration Hypoglycemia Docusate Sodium 100 mg 12/04/21 11:00 12/09/21 10:24 Docusate Sodium 100 Mg/10 Ml Oral Liqd PO 100 mg BID YOSIS Administration Fentanyl 1 applic 11/17/21 13:00 12/08/21 09:54 Fentanyl 25 Mcg/Hr Patch 72hr TD 1 applic Q3D YOSSI Administration Furosemide 20 mg 12/09/21 10:00 12/09/21 10:25 Furosemide 20 Mg Tab PO 12/11/21 10:01 20 mg QDAY YOSSI Administration Gabapentin 100 mg 12/01/21 10:00 12/09/21 10:24 Gabapentin 100 Mg Cap PO 100 mg QDAY YOSSI Administration Hydromorphone HCl 0.5 mg 12/08/21 20:06 12/09/21 10:23 Hydromorphone 1 Mg/1 Ml Inj IV 0.5 mg Q3H PRN Administration Pain, Moderate (4-6) Hydrophilic Ointment 1 applic 11/06/21 04:02 Lip Therapy Vaseline TP Q2HR PRN Dry Lips Lansoprazole 30 mg 11/24/21 22:00 12/09/21 10:24 Lansoprazole 30 Mg Solutab FEEDTUBE 30 mg BID [facility] Administration Levothyroxine Sodium 125 mcg 11/05/21 07:00 12/09/21 06:11 Levothyroxine 125 Mcg Tab PO 125 mcg DAILY@0600 [facility] Administration Melatonin 5 mg 12/05/21 22:00 12/08/21 21:35 Melatonin 5 Mg Tab PO 5 mg QHS [facility] Administration Metoprolol Tartrate 6.25 mg 12/08/21 22:52 12/09/21 10:24 Metoprolol Tartrate 25 Mg Tab PO 6.25 mg BID [facility] Administration Midodrine 10 mg 12/09/21 08:00 12/09/21 14:22 Midodrine 5 Mg Tab PO Not Given TID@0800,1200,1600 [facility] Multi-Ingred Cream/Lotion/Oil/Oint 1 applic 11/06/21 04:02 Mineral Oil/Petrolatum, White Ophth Oint 3.5 Gm OU Q4HR PRN Dry Eye(s) Nitroglycerin 0.4 mg 11/30/21 11:36 Nitroglycerin 0.4 Mg Tab Subl SL .Q5MIN PRN Chest Pain Ondansetron HCl 4 mg 12/05/21 10:00 12/08/21 05:17 Ondansetron 4 Mg/2 Ml Inj IV 4 mg Q8H PRN Administration Nausea And Vomiting Polyethylene Glycol 17 gm 12/02/21 10:00 12/09/21 10:25 Polyethylene Glycol 3350 17 Gm Powder PO Not Given QDAY YOSSI Pravastatin Sodium 20 mg 11/18/21 22:00 12/08/21 21:34 Pravastatin 20 Mg Tab PO 20 mg QHS YOSSI Administration Quetiapine Fumarate 50 mg 12/01/21 22:00 12/08/21 21:34 Quetiapine 25 Mg Tab PO 50 mg QHS YOSSI Administration Senna 17.6 mg 11/08/21 22:00 12/09/21 10:24 Sennosides Oral Liqd 8.8 Mg/5 Ml Oral Liqd PO 17.6 mg Q12HR YOSSI Administration Simple Syrup 15 ml 11/08/21 11:09 Simple Syrup 15 Ml FEEDTUBE PRN PRN Hypoglycemia Simple Syrup 30 ml 11/08/21 11:09 Simple Syrup 15 Ml FEEDTUBE PRN PRN Hypoglycemia Sodium Bicarbonate 325 mg 11/08/21 11:09 Sodium Bicarbonate 325 Mg Tab FEEDTUBE PRN PRN For Clogged Feeding Tube Sodium Chloride 10 ml 11/04/21 10:00 12/08/21 21:36 Sodium Chloride 0.9% 10 Ml Flush Syringe IV 10 ml BID YOSSI Administration Sodium Chloride 10 ml 11/04/21 02:03 Sodium Chloride 0.9% 10 Ml Flush Syringe IV PRN PRN LINE FLUSH Sodium Chloride 10 ml 11/10/21 09:57 11/17/21 20:47 Sodium Chloride 0.9% 50 Ml Ivpb IV 10 ml PRN PRN Administration FLUSH Sucralfate 1 gm 11/18/21 16:30 12/09/21 11:00 Sucralfate 1 Gm/10 Ml Oral Liqd PO 1 gm ACHS YOSSI Administration Trazodone HCl 50 mg 12/04/21 22:00 12/08/21 21:34 Trazodone 50 Mg Tab PO 50 mg QHS YOSSI Administration Nutrition/Malnutrition Assess - Dietary Evaluation Nutrition/Malnutrition Findings: Nutrition Notes Start: 11/04/21 17:16 Freq: Status: Active Protocol: Document 12/08/21 10:17 YOVANI (Rec: 12/08/21 10:27 MAARMEN [email or web address]) Nutrition Notes Initial or Follow up Reassessment Current Diagnosis Diabetes,Hypertension,Heart Failure,Respiratory Failure Other Pertinent Diagnosis Bilat pneu, acute GIB Current Diet TF - Vital AF 1.2 at 40ml/hr Labs/Tests Na 135 BUN 23 H/H 7.7/23.5 Pertinent Medications Colace, Miralax Height 5 ft Weight 62.4 kg [place] Body Weight (kg) 45.45 BMI 26.9 Weight Status Appropriate Subjective/Other Information Trach and PEG placed on 11/26. Pt remains on vent support. BM x 1 on yesterday; previous report of no BM x 5 days on . Pt tolerating TF. Percent of energy/protein needs met: 95% energy 96% pro Burn Absent Trauma Absent #1 Nutrition Diagnosis Inadequate oral intake Diagnosis Progress(for reassessment Continues documentation) Is patient on ventilator? Yes Is Patient Ambulatory and/or Out of Bed No REE-([facility]-confined to bed) 1207.824 Calculation Used for Recommendations [facility] Additional Notes Pro needs 1.2-2g/k-125g/ day Fluid needs 1ml/kcal Nutrition Intervention Nutrition Support: Continue Vital AF 1.2 at 40ml/ hr. Provide 65ml water flush q4h. Kcal 1,152 Protein (gm) 72 Carbohydrates (gm) 106 Fat (gm) 52 Fluid (mL) 779 Fiber (gm) 5 Goal #1 TF tolerance Goal #2 TF to meet at least 75% energy and pro needs Follow-Up By: 12/15/21 Additional Comments F/U: stable TF, vent status, wt
--- NOTE | 2021-12-09 18:53 | Ultrasound Report ---
Ultrasound chest INDICATION: Pleural effusions FINDINGS: Small to moderate pleural effusions are noted bilaterally. Pression: There are [id number] bilateral pleural effusions. Signer Name: Jefferson Salmeron MD Signed: 12/09/2021 6:49 PM Workstation Name: [employer]
[2021-12-09] MEDS: PRAVASTATIN 20 MG TAB PO SCH (21:18)
[2021-12-09] MEDS: QUEtiapine 25 MG TAB PO SCH (21:19)
[2021-12-09] MEDS: MELATONIN 5 MG TAB PO SCH (21:19)
[2021-12-09] MEDS: traZODone 50 MG TAB PO SCH (21:19)
[2021-12-10] MEDS: ALPRAZolam 0.5 MG TAB PO SCH ×3 (01:05→17:54)
[2021-12-10 05:06] LABS: Blood Urea Nitrogen 27 mg/dL (7-17); Calcium 8.2 mg/dL (8.4-10.2); Hemolysis Index 1
[2021-12-10 05:08] LABS: BUN/Creatinine Ratio 45
[2021-12-10] MEDS: LEVOTHYROXINE 125 MCG TAB PO SCH (06:39)
[2021-12-10] MEDS: SUCRALFATE 1 GM/10 ML ORAL LIQD PO SCH ×4 (08:20→21:37)
[2021-12-10] MEDS: HYDROcodone/ACETAMINOPHEN 10-325MG TAB FEEDTUBE SCH ×3 (08:54→21:37)
[2021-12-10] MEDS: MIDODRINE 5 MG TAB PO SCH ×3 (08:59→17:54)
[2021-12-10] MEDS: DOCUSATE SODIUM 100 MG/10 ML ORAL LIQD PO SCH ×2 (09:04→21:37)
[2021-12-10] MEDS: LANSOPRAZOLE 30 MG SOLUTAB FEEDTUBE SCH ×2 (09:04→21:38)
[2021-12-10] MEDS: SENNOSIDES ORAL LIQD 8.8 MG/5 ML ORAL LIQD PO SCH ×2 (09:04→21:38)
[2021-12-10] MEDS: FUROSEMIDE 20 MG TAB PO SCH (09:04)
[2021-12-10] MEDS: POLYETHYLENE GLYCOL 3350 17 GM POWDER PO SCH (09:04)
[2021-12-10] MEDS: busPIRone 5 MG TAB PO SCH ×2 (09:05→21:38)
[2021-12-10] MEDS: METOPROLOL TARTRATE 25 MG TAB PO SCH ×2 (09:05→21:37)
[2021-12-10] MEDS: GABAPENTIN 100 MG CAP PO SCH (09:05)
--- NOTE | 2021-12-10 10:48 | Progress Note ---
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 (Called insurance company for peer discussion and her LTAC transfer was denied due to "hemodynamic instability" despite my explaining that she has only intermittently required 2 nicole's/min of Levophed and also that she can be easily managed at the LTAC which also treats critically ill patients) - get thoracentesis to improve alveolar recruitment - LTAC evaluation ongoing - no new issues otherwise, continue care as below; - continue gentle diuresis - continue Midodrine - continue daily SAT and SBT assessment as tolerated - prn Levophed for target MAP > 65 mmHg - continue to wean supplemental oxygen for target O2 sat's > 90% acutely - VAP bundle addressed - continue lung protective strategies - continue bronchodilators with routine trach care and pulmonary hygiene per RT - wean per pulmonary driven protocols otherwise - avoid nephrotoxins, renally dose all medications - continue accuchecks with glycemic control per SSI (While critically ill target blood glucose of 140-180 mg/dL; avoid hypoglycemia) - sedation prn for target RASS 0 to -1 - antibiotics per ID recommendations - continue to avoid benzodiazepine's, reduce the possibility of delirium - prn analgesia per CPOT score - Maintenance of sleep-wake cycle, avoid delirium - continue enteral nutritional support at goal rate as tolerated - G.I. & VTE prophylaxis - PT/OT/ROM exercises - continue mobility protocols for pressure ulcer prophylaxis - Monitor hemodynamics closely - continue other care per attending / other consultants - discharge planning ongoing concurrently COVID SPECIFIC INTERVENTIONS - COVID-19 PCR negative .... Re-evaluate in am & prn CONDITION: CRITICAL PROGNOSIS: GUARDED CODE STATUS: FULL CODE The high probability of a clinically significant, sudden or life-threatening deterioration of the [respiratory, cardiovascular & neurologic] system(s) required my full and direct attention, intervention and personal management. The aggregate critical care time was [32] minutes without overlap. Time includes spent on; [x] Data Review and interpretation [x] Patient assessment and monitoring of vital signs [x] Documentation [x] Medication orders and management Subjective Date of service: 12/10/21 Principal diagnosis: Septic shock; AHRF; Anemia; Pneumonia; L. pleural effusion; HFrEF; Pulm HTN Interval history: Patient is seen today for: Septic shock; Acute hypoxemic respiratory failure; Anemia; Bilateral pneumonia; Left pleural effusion; HFrEF 30-35%; Pulm HTN RVSP 49 Seen and examined at bedside; 24hour events reviewed; nursing and respiratory care staff consulted; no adverse overnight events reported to me; resting in bed; continues to fail weaning trials and remains on MVS; no vasopressor use last 72+ hours; denies acute chest pain; US chest reveals moderate effusion Objective Vital Signs - 12hr 12/09/21 12/09/21 12/09/21 23:00 23:16 23:30 Temperature Pulse Rate 65 67 66 Pulse Rate [ From Monitor] Respiratory 13 13 14 Rate Blood Pressure 127/61 127/61 127/61 O2 Sat by Pulse 98 98 Oximetry O2 Sat by Pulse Oximetry [ Assessment] 12/09/21 12/10/21 12/10/21 23:46 00:00 00:16 Temperature 98.0 F Pulse Rate 68 70 67 Pulse Rate [ 61 From Monitor] Respiratory 14 14 14 Rate Blood Pressure 130/61 146/66 146/66 O2 Sat by Pulse 99 Oximetry O2 Sat by Pulse Oximetry [ Assessment] 12/10/21 12/10/21 12/10/21 00:30 00:41 00:46 Temperature Pulse Rate 68 70 67 Pulse Rate [ From Monitor] Respiratory 15 14 Rate Blood Pressure 146/66 120/61 138/65 O2 Sat by Pulse 98 Oximetry O2 Sat by Pulse Oximetry [ Assessment] 12/10/21 12/10/21 12/10/21 01:00 01:16 01:30 Temperature Pulse Rate 67 65 69 Pulse Rate [ From Monitor] Respiratory 14 14 17 Rate Blood Pressure 138/65 139/62 139/62 O2 Sat by Pulse 96 Oximetry O2 Sat by Pulse Oximetry [ Assessment] 12/10/21 12/10/21 12/10/21 01:46 02:00 02:16 Temperature Pulse Rate 68 65 65 Pulse Rate [ From Monitor] Respiratory 12 14 14 Rate Blood Pressure 132/58 132/58 117/48 O2 Sat by Pulse 98 98 96 Oximetry O2 Sat by Pulse Oximetry [ Assessment] 12/10/21 12/10/21 12/10/21 02:30 02:46 03:00 Temperature Pulse Rate 62 63 62 Pulse Rate [ From Monitor] Respiratory 14 14 14 Rate Blood Pressure 117/48 116/51 116/51 O2 Sat by Pulse 97 96 96 Oximetry O2 Sat by Pulse Oximetry [ Assessment] 12/10/21 12/10/21 12/10/21 03:16 03:30 03:46 Temperature Pulse Rate 61 61 62 Pulse Rate [ From Monitor] Respiratory 14 14 14 Rate Blood Pressure 110/48 110/48 112/52 O2 Sat by Pulse 97 97 95 Oximetry O2 Sat by Pulse Oximetry [ Assessment] 12/10/21 12/10/21 12/10/21 04:00 04:16 04:30 Temperature 97.4 F L Pulse Rate 60 63 64 Pulse Rate [ 61 From Monitor] Respiratory 14 14 14 Rate Blood Pressure 117/50 117/50 126/57 O2 Sat by Pulse 95 95 96 Oximetry O2 Sat by Pulse 100 Oximetry [ Assessment] 12/10/21 12/10/21 12/10/21 04:46 05:00 05:16 Temperature Pulse Rate 71 73 71 Pulse Rate [ From Monitor] Respiratory 16 13 14 Rate Blood Pressure 126/57 123/66 123/66 O2 Sat by Pulse 100 98 99 Oximetry O2 Sat by Pulse Oximetry [ Assessment] 12/10/21 12/10/21 12/10/21 05:30 05:46 06:00 Temperature Pulse Rate 73 70 69 Pulse Rate [ From Monitor] Respiratory 14 13 14 Rate Blood Pressure 123/66 138/67 138/67 O2 Sat by Pulse 99 99 98 Oximetry O2 Sat by Pulse Oximetry [ Assessment] 12/10/21 12/10/21 12/10/21 07:19 09:05 09:42 Temperature 98.4 F Pulse Rate 82 Pulse Rate [ From Monitor] Respiratory Rate Blood Pressure 135/91 O2 Sat by Pulse 94 Oximetry O2 Sat by Pulse Oximetry [ Assessment] Constitutional: alert, appears uncomfortable (restless really), other (trach to MVS, frail elderly woman with mildly increased respiratory effort at rest) Eyes: non-icteric ENT: oropharynx moist, other (+ Midline tracheostomy) Neck: supple, no lymphadenopathy, no JVD Effort: mildly labored Ascultation: Bilateral: diminished breath sounds, rhonchi Percussion: Bilateral: not dull Cardiovascular: regular rate and rhythm, other (S1,S2) Gastrointestinal: normoactive bowel sounds, soft, non-tender, non-distended (protuberant) Integumentary: normal Extremities: no cyanosis, pink and warm, pulses normal, edema (upper etremities) Neurologic: normal mental status, non-focal exam (grossly), pupils equal and round, motor strength normal and Psychiatric: mood appropriate, affect normal CBC and BMP: 12/11/21 04:35 12/11/21 04:35 ABG, PT/INR, D-dimer: ABG ABG pH 7.449 pH Units (7.350-7.450) 11/21/21 16:00 ABG pCO2 32.1 mm Hg 11/21/21 16:00 ABG pO2 114.2 mm Hg (80.0-90.0) H 11/21/21 16:00 ABG O2 Saturation 98.3 % (95.0-99.0) 11/21/21 16:00 PT/INR, D-dimer PT 16.9 Sec. (12.2-14.9) H 11/26/21 05:00 INR 1.24 (0.87-1.13) H 11/26/21 05:00 D-Dimer 2655.00 ng/mlDDU (0-234) H 11/11/21 04:28 Abnormal lab findings: Abnormal Labs 11/03/21 11/03/21 11/03/21 22:32 22:32 22:32 WBC 29.3 H RBC 2.93 L Hgb 6.1 L Hct 21.9 L MCV 75 L MCH 21 L MCHC 28 L RDW 19.7 H Plt Count Seg Neuts % (Manual) 97.0 H Lymphocytes % (Manual) 3.0 L Seg Neutrophils # Man 28.4 H Lymphocytes # (Manual) 0.9 L Monocytes # (Manual) PT 18.6 H INR 1.40 H D-Dimer ABG pH ABG pO2 ABG HCO3 ABG O2 Saturation ABG Base Excess ABG Hemoglobin Oxyhemoglobin Sodium Potassium Chloride Carbon Dioxide 20 L BUN 33 H Creatinine Glucose 119 H POC Glucose Lactic Acid Calcium 8.3 L Phosphorus Magnesium AST ALT Alkaline Phosphatase Lactate Dehydrogenase Troponin T 0.035 H C-Reactive Protein NT-Pro-B Natriuret Pep Total Protein Albumin LDL Cholesterol Direct 34 L Vitamin B12 Crossmatch 11/03/21 11/03/21 11/03/21 22:32 22:32 23:57 WBC RBC Hgb Hct MCV MCH MCHC RDW Plt Count Seg Neuts % (Manual) Lymphocytes % (Manual) Seg Neutrophils # Man Lymphocytes # (Manual) Monocytes # (Manual) PT INR D-Dimer ABG pH ABG pO2 ABG HCO3 ABG O2 Saturation ABG Base Excess ABG Hemoglobin Oxyhemoglobin Sodium Potassium Chloride Carbon Dioxide BUN Creatinine Glucose POC Glucose Lactic Acid 3.70 H* Calcium Phosphorus Magnesium AST ALT Alkaline Phosphatase 139 H Lactate Dehydrogenase Troponin T C-Reactive Protein NT-Pro-B Natriuret Pep 7895 H Total Protein Albumin 3.5 L LDL Cholesterol Direct Vitamin B12 Crossmatch See Detail 11/04/21 11/04/21 11/05/21 00:59 13:58 00:51 WBC 27.9 H RBC 3.28 L Hgb 7.3 L Hct 25.5 L MCV 78 L MCH 22 L MCHC 29 L RDW 19.1 H Plt Count Seg Neuts % (Manual) 96.0 H Lymphocytes % (Manual) 2.0 L Seg Neutrophils # Man 26.8 H Lymphocytes # (Manual) 0.6 L Monocytes # (Manual) PT INR D-Dimer ABG pH ABG pO2 ABG HCO3 ABG O2 Saturation ABG Base Excess ABG Hemoglobin Oxyhemoglobin Sodium Potassium Chloride Carbon Dioxide BUN Creatinine Glucose POC Glucose Lactic Acid Calcium Phosphorus Magnesium AST ALT Alkaline Phosphatase Lactate Dehydrogenase Troponin T 0.051 H D 0.032 H D C-Reactive Protein NT-Pro-B Natriuret Pep Total Protein Albumin LDL Cholesterol Direct Vitamin B12 Crossmatch 11/05/21 11/05/21 11/05/21 06:11 06:11 06:11 WBC 31.8 H RBC 3.57 L Hgb 8.0 L Hct 27.7 L MCV 78 L MCH 22 L MCHC 29 L RDW 19.2 H Plt Count Seg Neuts % (Manual) 91.0 H Lymphocytes % (Manual) 4.5 L Seg Neutrophils # Man 28.9 H Lymphocytes # (Manual) Monocytes # (Manual) 1.1 H PT INR D-Dimer 1494.53 H ABG pH ABG pO2 ABG HCO3 ABG O2 Saturation ABG Base Excess ABG Hemoglobin Oxyhemoglobin Sodium Potassium Chloride Carbon Dioxide 19 L BUN 42 H Creatinine Glucose 115 H POC Glucose Lactic Acid Calcium Phosphorus Magnesium AST 43 H ALT Alkaline Phosphatase Lactate Dehydrogenase 187 H Troponin T C-Reactive Protein 22.20 H NT-Pro-B Natriuret Pep Total Protein 6.0 L Albumin 3.2 L LDL Cholesterol Direct Vitamin B12 Crossmatch 11/05/21 11/05/21 11/06/21 06:11 12:15 00:30 WBC RBC Hgb Hct MCV MCH MCHC RDW Plt Count Seg Neuts % (Manual) Lymphocytes % (Manual) Seg Neutrophils # Man Lymphocytes # (Manual) Monocytes # (Manual) PT INR D-Dimer ABG pH ABG pO2 ABG HCO3 ABG O2 Saturation ABG Base Excess ABG Hemoglobin Oxyhemoglobin Sodium Potassium Chloride Carbon Dioxide BUN Creatinine Glucose POC Glucose 113 H 69 L Lactic Acid Calcium Phosphorus Magnesium AST ALT Alkaline Phosphatase Lactate Dehydrogenase Troponin T 0.033 H C-Reactive Protein NT-Pro-B Natriuret Pep Total Protein Albumin LDL Cholesterol Direct Vitamin B12 Crossmatch 11/06/21 11/06/21 11/06/21 05:50 15:50 15:50 WBC 25.5 H RBC 3.62 L Hgb 8.0 L Hct 27.5 L MCV 76 L MCH 22 L MCHC 29 L RDW 19.6 H Plt Count Seg Neuts % (Manual) 92.0 H Lymphocytes % (Manual) 5.0 L Seg Neutrophils # Man 23.5 H Lymphocytes # (Manual) Monocytes # (Manual) PT INR D-Dimer ABG pH 7.305 L ABG pO2 ABG HCO3 15.8 L ABG O2 Saturation ABG Base Excess -9.6 L ABG Hemoglobin 8.6 L Oxyhemoglobin 94.6 L Sodium Potassium Chloride 113.9 H Carbon Dioxide 17 L BUN 56 H Creatinine Glucose 114 H POC Glucose Lactic Acid Calcium 7.9 L Phosphorus Magnesium AST 1410 H ALT 934 H Alkaline Phosphatase 142 H Lactate Dehydrogenase Troponin T C-Reactive Protein NT-Pro-B Natriuret Pep Total Protein 5.0 L Albumin 2.6 L LDL Cholesterol Direct Vitamin B12 Crossmatch 11/07/21 11/07/21 11/07/21 03:30 04:50 08:07 WBC RBC Hgb Hct MCV MCH MCHC RDW Plt Count Seg Neuts % (Manual) Lymphocytes % (Manual) Seg Neutrophils # Man Lymphocytes # (Manual) Monocytes # (Manual) PT INR D-Dimer ABG pH ABG pO2 296.9 H ABG HCO3 18.1 L ABG O2 Saturation 99.5 H ABG Base Excess -5.9 L ABG Hemoglobin 7.6 L Oxyhemoglobin Sodium Potassium Chloride Carbon Dioxide BUN Creatinine Glucose POC Glucose 106 H 108 H Lactic Acid Calcium Phosphorus Magnesium AST ALT Alkaline Phosphatase Lactate Dehydrogenase Troponin T C-Reactive Protein NT-Pro-B Natriuret Pep Total Protein Albumin LDL Cholesterol Direct Vitamin B12 Crossmatch 11/08/21 11/08/21 11/08/21 03:10 18:05 23:43 WBC RBC Hgb Hct MCV MCH MCHC RDW Plt Count Seg Neuts % (Manual) Lymphocytes % (Manual) Seg Neutrophils # Man Lymphocytes # (Manual) Monocytes # (Manual) PT INR D-Dimer ABG pH ABG pO2 127.4 H ABG HCO3 ABG O2 Saturation ABG Base Excess -3.4 L ABG Hemoglobin 7.4 L Oxyhemoglobin Sodium Potassium Chloride Carbon Dioxide BUN Creatinine Glucose POC Glucose 113 H 141 H Lactic Acid Calcium Phosphorus Magnesium AST ALT Alkaline Phosphatase Lactate Dehydrogenase Troponin T C-Reactive Protein NT-Pro-B Natriuret Pep Total Protein Albumin LDL Cholesterol Direct Vitamin B12 Crossmatch 11/08/21 11/08/21 11/09/21 Unknown Unknown 02:00 WBC 14.5 H RBC 3.35 L Hgb 7.5 L 8.1 L Hct 25.4 L 27.6 L MCV 76 L 76 L MCH 23 L 22 L MCHC RDW 19.9 H 19.9 H Plt Count Seg Neuts % (Manual) Lymphocytes % (Manual) Seg Neutrophils # Man Lymphocytes # (Manual) Monocytes # (Manual) PT INR D-Dimer ABG pH ABG pO2 ABG HCO3 ABG O2 Saturation ABG Base Excess ABG Hemoglobin Oxyhemoglobin Sodium 154 H D Potassium 3.3 L Chloride 120.7 H Carbon Dioxide 20 L BUN 38 H Creatinine Glucose POC Glucose Lactic Acid Calcium 8.3 L Phosphorus Magnesium AST ALT Alkaline Phosphatase Lactate Dehydrogenase Troponin T C-Reactive Protein NT-Pro-B Natriuret Pep Total Protein Albumin LDL Cholesterol Direct Vitamin B12 Crossmatch 11/09/21 11/09/21 11/09/21 02:00 02:31 05:12 WBC RBC Hgb Hct MCV MCH MCHC RDW Plt Count Seg Neuts % (Manual) Lymphocytes % (Manual) Seg Neutrophils # Man Lymphocytes # (Manual) Monocytes # (Manual) PT INR D-Dimer ABG pH 7.479 H ABG pO2 121.3 H ABG HCO3 ABG O2 Saturation ABG Base Excess ABG Hemoglobin 7.3 L Oxyhemoglobin Sodium Potassium Chloride 112.5 H Carbon Dioxide BUN 33 H Creatinine Glucose 161 H POC Glucose 135 H Lactic Acid Calcium Phosphorus Magnesium AST 251 H ALT 481 H Alkaline Phosphatase Lactate Dehydrogenase Troponin T C-Reactive Protein NT-Pro-B Natriuret Pep Total Protein 5.0 L Albumin 2.8 L LDL Cholesterol Direct Vitamin B12 Crossmatch 11/09/21 11/09/21 11/09/21 11:33 16:32 23:28 WBC RBC Hgb Hct MCV MCH MCHC RDW Plt Count Seg Neuts % (Manual) Lymphocytes % (Manual) Seg Neutrophils # Man Lymphocytes # (Manual) Monocytes # (Manual) PT INR D-Dimer ABG pH ABG pO2 ABG HCO3 ABG O2 Saturation ABG Base Excess ABG Hemoglobin Oxyhemoglobin Sodium Potassium Chloride Carbon Dioxide BUN Creatinine Glucose POC Glucose 132 H 133 H 143 H Lactic Acid Calcium Phosphorus Magnesium AST ALT Alkaline Phosphatase Lactate Dehydrogenase Troponin T C-Reactive Protein NT-Pro-B Natriuret Pep Total Protein Albumin LDL Cholesterol Direct Vitamin B12 Crossmatch 11/10/21 11/10/21 11/10/21 04:00 04:00 05:35 WBC 16.0 H RBC 3.61 L Hgb 8.0 L Hct 27.1 L MCV 75 L MCH 22 L MCHC RDW 20.4 H Plt Count Seg Neuts % (Manual) Lymphocytes % (Manual) Seg Neutrophils # Man Lymphocytes # (Manual) Monocytes # (Manual) PT INR D-Dimer ABG pH ABG pO2 ABG HCO3 ABG O2 Saturation ABG Base Excess ABG Hemoglobin Oxyhemoglobin Sodium 149 H Potassium Chloride 114.1 H Carbon Dioxide BUN 31 H Creatinine Glucose 148 H POC Glucose 132 H Lactic Acid Calcium 8.2 L Phosphorus Magnesium AST ALT Alkaline Phosphatase Lactate Dehydrogenase Troponin T C-Reactive Protein NT-Pro-B Natriuret Pep Total Protein Albumin LDL Cholesterol Direct Vitamin B12 Crossmatch 11/10/21 11/10/21 11/10/21 11:31 14:08 15:35 WBC RBC Hgb Hct MCV MCH MCHC RDW Plt Count Seg Neuts % (Manual) Lymphocytes % (Manual) Seg Neutrophils # Man Lymphocytes # (Manual) Monocytes # (Manual) PT INR D-Dimer ABG pH ABG pO2 126.6 H ABG HCO3 ABG O2 Saturation ABG Base Excess ABG Hemoglobin 7.4 L Oxyhemoglobin Sodium Potassium Chloride Carbon Dioxide BUN Creatinine Glucose POC Glucose 147 H Lactic Acid Calcium Phosphorus Magnesium AST ALT Alkaline Phosphatase Lactate Dehydrogenase Troponin T C-Reactive Protein NT-Pro-B Natriuret Pep Total Protein Albumin LDL Cholesterol Direct Vitamin B12 1823 H Crossmatch 11/10/21 11/11/21 11/11/21 17:53 00:55 04:28 WBC RBC Hgb Hct MCV MCH MCHC RDW Plt Count Seg Neuts % (Manual) Lymphocytes % (Manual) Seg Neutrophils # Man Lymphocytes # (Manual) Monocytes # (Manual) PT INR D-Dimer ABG pH ABG pO2 ABG HCO3 ABG O2 Saturation ABG Base Excess ABG Hemoglobin Oxyhemoglobin Sodium 149 H Potassium Chloride 112.2 H Carbon Dioxide BUN 34 H Creatinine Glucose 148 H POC Glucose 140 H 145 H Lactic Acid Calcium 7.9 L Phosphorus Magnesium AST 53 H ALT 203 H Alkaline Phosphatase Lactate Dehydrogenase Troponin T C-Reactive Protein NT-Pro-B Natriuret Pep Total Protein 4.9 L Albumin 2.6 L LDL Cholesterol Direct Vitamin B12 Crossmatch 11/11/21 11/11/21 11/11/21 04:28 04:28 05:28 WBC 20.9 H RBC 3.47 L Hgb 7.5 L Hct 26.0 L MCV 75 L MCH 22 L MCHC 29 L RDW 21.6 H Plt Count 132 L Seg Neuts % (Manual) Lymphocytes % (Manual) Seg Neutrophils # Man Lymphocytes # (Manual) Monocytes # (Manual) PT INR D-Dimer 2655.00 H ABG pH ABG pO2 ABG HCO3 ABG O2 Saturation ABG Base Excess ABG Hemoglobin Oxyhemoglobin Sodium Potassium Chloride Carbon Dioxide BUN Creatinine Glucose POC Glucose 154 H Lactic Acid Calcium Phosphorus Magnesium AST ALT Alkaline Phosphatase Lactate Dehydrogenase Troponin T C-Reactive Protein NT-Pro-B Natriuret Pep Total Protein Albumin LDL Cholesterol Direct Vitamin B12 Crossmatch 11/11/21 11/11/21 11/12/21 12:38 18:13 00:14 WBC RBC Hgb Hct MCV MCH MCHC RDW Plt Count Seg Neuts % (Manual) Lymphocytes % (Manual) Seg Neutrophils # Man Lymphocytes # (Manual) Monocytes # (Manual) PT INR D-Dimer ABG pH ABG pO2 ABG HCO3 ABG O2 Saturation ABG Base Excess ABG Hemoglobin Oxyhemoglobin Sodium Potassium Chloride Carbon Dioxide BUN Creatinine Glucose POC Glucose 137 H 108 H 137 H Lactic Acid Calcium Phosphorus Magnesium AST ALT Alkaline Phosphatase Lactate Dehydrogenase Troponin T C-Reactive Protein NT-Pro-B Natriuret Pep Total Protein Albumin LDL Cholesterol Direct Vitamin B12 Crossmatch 11/12/21 11/12/21 11/12/21 05:40 06:24 11:12 WBC RBC Hgb Hct MCV MCH MCHC RDW Plt Count Seg Neuts % (Manual) Lymphocytes % (Manual) Seg Neutrophils # Man Lymphocytes # (Manual) Monocytes # (Manual) PT INR D-Dimer ABG pH 7.586 H ABG pO2 150.6 H ABG HCO3 27.2 H ABG O2 Saturation 99.1 H ABG Base Excess 5.2 H ABG Hemoglobin 7.5 L Oxyhemoglobin Sodium Potassium Chloride Carbon Dioxide BUN Creatinine Glucose POC Glucose 132 H 140 H Lactic Acid Calcium Phosphorus Magnesium AST ALT Alkaline Phosphatase Lactate Dehydrogenase Troponin T C-Reactive Protein NT-Pro-B Natriuret Pep Total Protein Albumin LDL Cholesterol Direct Vitamin B12 Crossmatch 11/12/21 11/12/21 11/12/21 14:50 14:50 17:13 WBC 19.8 H RBC 3.27 L Hgb 7.1 L Hct 24.5 L MCV 75 L MCH 22 L MCHC 29 L RDW 22.3 H Plt Count Seg Neuts % (Manual) Lymphocytes % (Manual) Seg Neutrophils # Man Lymphocytes # (Manual) Monocytes # (Manual) PT INR D-Dimer ABG pH ABG pO2 ABG HCO3 ABG O2 Saturation ABG Base Excess ABG Hemoglobin Oxyhemoglobin Sodium 150 H Potassium 3.3 L Chloride 112.0 H Carbon Dioxide BUN 40 H Creatinine Glucose 151 H POC Glucose 121 H Lactic Acid Calcium 7.4 L Phosphorus 1.70 L Magnesium 1.40 L AST ALT Alkaline Phosphatase Lactate Dehydrogenase Troponin T C-Reactive Protein NT-Pro-B Natriuret Pep Total Protein Albumin LDL Cholesterol Direct Vitamin B12 Crossmatch 11/12/21 11/13/21 11/13/21 23:19 05:34 06:30 WBC RBC Hgb Hct MCV MCH MCHC RDW Plt Count Seg Neuts % (Manual) Lymphocytes % (Manual) Seg Neutrophils # Man Lymphocytes # (Manual) Monocytes # (Manual) PT INR D-Dimer ABG pH ABG pO2 ABG HCO3 ABG O2 Saturation ABG Base Excess ABG Hemoglobin Oxyhemoglobin Sodium 149 H Potassium Chloride 60.0 L Carbon Dioxide BUN 40 H Creatinine Glucose 146 H POC Glucose 113 H 132 H Lactic Acid Calcium 7.3 L Phosphorus Magnesium 2.40 H AST ALT 72 H Alkaline Phosphatase Lactate Dehydrogenase Troponin T C-Reactive Protein NT-Pro-B Natriuret Pep Total Protein 5.2 L Albumin 2.2 L LDL Cholesterol Direct Vitamin B12 Crossmatch 11/13/21 11/13/21 11/13/21 06:30 08:30 11:19 WBC 21.2 H RBC 3.12 L Hgb 6.8 L Hct 23.2 L MCV 74 L MCH 22 L MCHC 29 L RDW 22.2 H Plt Count 135 L Seg Neuts % (Manual) Lymphocytes % (Manual) Seg Neutrophils # Man Lymphocytes # (Manual) Monocytes # (Manual) PT INR D-Dimer ABG pH ABG pO2 ABG HCO3 ABG O2 Saturation ABG Base Excess ABG Hemoglobin Oxyhemoglobin Sodium Potassium Chloride Carbon Dioxide BUN Creatinine Glucose POC Glucose 136 H Lactic Acid Calcium Phosphorus Magnesium AST ALT Alkaline Phosphatase Lactate Dehydrogenase Troponin T C-Reactive Protein NT-Pro-B Natriuret Pep Total Protein Albumin LDL Cholesterol Direct Vitamin B12 Crossmatch See Detail 11/13/21 11/14/21 11/14/21 18:21 00:01 04:46 WBC 20.0 H RBC 3.41 L Hgb 7.9 L Hct 26.8 L MCV MCH 23 L MCHC 29 L RDW 24.0 H Plt Count Seg Neuts % (Manual) Lymphocytes % (Manual) Seg Neutrophils # Man Lymphocytes # (Manual) Monocytes # (Manual) PT INR D-Dimer ABG pH ABG pO2 ABG HCO3 ABG O2 Saturation ABG Base Excess ABG Hemoglobin Oxyhemoglobin Sodium Potassium Chloride Carbon Dioxide BUN Creatinine Glucose POC Glucose 149 H 141 H Lactic Acid Calcium Phosphorus Magnesium AST ALT Alkaline Phosphatase Lactate Dehydrogenase Troponin T C-Reactive Protein NT-Pro-B Natriuret Pep Total Protein Albumin LDL Cholesterol Direct Vitamin B12 Crossmatch 11/14/21 11/14/21 11/14/21 04:46 05:10 11:10 WBC RBC Hgb Hct MCV MCH MCHC RDW Plt Count Seg Neuts % (Manual) Lymphocytes % (Manual) Seg Neutrophils # Man Lymphocytes # (Manual) Monocytes # (Manual) PT INR D-Dimer ABG pH ABG pO2 ABG HCO3 ABG O2 Saturation ABG Base Excess ABG Hemoglobin Oxyhemoglobin Sodium 148 H Potassium Chloride 113.1 H Carbon Dioxide BUN 43 H Creatinine Glucose 140 H POC Glucose 132 H 133 H Lactic Acid Calcium 7.5 L Phosphorus Magnesium AST ALT Alkaline Phosphatase Lactate Dehydrogenase Troponin T C-Reactive Protein NT-Pro-B Natriuret Pep Total Protein Albumin LDL Cholesterol Direct Vitamin B12 Crossmatch 11/14/21 11/14/21 11/14/21 16:14 17:48 23:23 WBC RBC Hgb Hct MCV MCH MCHC RDW Plt Count Seg Neuts % (Manual) Lymphocytes % (Manual) Seg Neutrophils # Man Lymphocytes # (Manual) Monocytes # (Manual) PT INR D-Dimer ABG pH ABG pO2 ABG HCO3 28.0 H ABG O2 Saturation ABG Base Excess 3.1 H ABG Hemoglobin 5.8 L Oxyhemoglobin 94.8 L Sodium Potassium Chloride Carbon Dioxide BUN Creatinine Glucose POC Glucose 130 H 136 H Lactic Acid Calcium Phosphorus Magnesium AST ALT Alkaline Phosphatase Lactate Dehydrogenase Troponin T C-Reactive Protein NT-Pro-B Natriuret Pep Total Protein Albumin LDL Cholesterol Direct Vitamin B12 Crossmatch 11/15/21 11/15/21 11/15/21 05:20 05:50 05:50 WBC 19.9 H RBC 3.50 L Hgb 8.2 L Hct 27.9 L MCV MCH 23 L MCHC 29 L RDW 24.9 H Plt Count Seg Neuts % (Manual) Lymphocytes % (Manual) Seg Neutrophils # Man Lymphocytes # (Manual) Monocytes # (Manual) PT INR D-Dimer ABG pH ABG pO2 ABG HCO3 ABG O2 Saturation ABG Base Excess ABG Hemoglobin Oxyhemoglobin Sodium 149 H Potassium Chloride 112.0 H Carbon Dioxide BUN 48 H Creatinine Glucose 152 H POC Glucose 137 H Lactic Acid Calcium 7.9 L Phosphorus Magnesium AST ALT Alkaline Phosphatase Lactate Dehydrogenase Troponin T C-Reactive Protein NT-Pro-B Natriuret Pep Total Protein Albumin LDL Cholesterol Direct Vitamin B12 Crossmatch 11/15/21 11/15/21 11/15/21 12:12 17:07 23:24 WBC RBC Hgb Hct MCV MCH MCHC RDW Plt Count Seg Neuts % (Manual) Lymphocytes % (Manual) Seg Neutrophils # Man Lymphocytes # (Manual) Monocytes # (Manual) PT INR D-Dimer ABG pH ABG pO2 ABG HCO3 ABG O2 Saturation ABG Base Excess ABG Hemoglobin Oxyhemoglobin Sodium Potassium Chloride Carbon Dioxide BUN Creatinine Glucose POC Glucose 114 H 135 H 123 H Lactic Acid Calcium Phosphorus Magnesium AST ALT Alkaline Phosphatase Lactate Dehydrogenase Troponin T C-Reactive Protein NT-Pro-B Natriuret Pep Total Protein Albumin LDL Cholesterol Direct Vitamin B12 Crossmatch 11/16/21 11/16/21 11/16/21 05:21 10:00 10:00 WBC 21.7 H RBC 2.57 L Hgb 6.0 L Hct 20.2 L D MCV MCH 24 L MCHC RDW 26.3 H Plt Count Seg Neuts % (Manual) Lymphocytes % (Manual) Seg Neutrophils # Man Lymphocytes # (Manual) Monocytes # (Manual) PT INR D-Dimer ABG pH ABG pO2 ABG HCO3 ABG O2 Saturation ABG Base Excess ABG Hemoglobin Oxyhemoglobin Sodium 153 H Potassium Chloride 114.9 H Carbon Dioxide BUN 74 H Creatinine Glucose 155 H POC Glucose 127 H Lactic Acid Calcium 8.1 L Phosphorus Magnesium AST ALT Alkaline Phosphatase Lactate Dehydrogenase Troponin T C-Reactive Protein NT-Pro-B Natriuret Pep Total Protein Albumin LDL Cholesterol Direct Vitamin B12 Crossmatch 11/16/21 11/16/21 11/16/21 11:34 14:00 15:25 WBC 17.2 H RBC 2.08 L Hgb 4.7 L* Hct 16.2 L* MCV 78 L MCH 23 L MCHC 29 L RDW 26.0 H Plt Count Seg Neuts % (Manual) 87.0 H Lymphocytes % (Manual) 8.0 L Seg Neutrophils # Man 15.0 H Lymphocytes # (Manual) Monocytes # (Manual) 0.9 H PT INR D-Dimer ABG pH ABG pO2 ABG HCO3 ABG O2 Saturation ABG Base Excess ABG Hemoglobin Oxyhemoglobin Sodium Potassium Chloride Carbon Dioxide BUN Creatinine Glucose POC Glucose 131 H Lactic Acid Calcium Phosphorus Magnesium AST ALT Alkaline Phosphatase Lactate Dehydrogenase Troponin T C-Reactive Protein NT-Pro-B Natriuret Pep Total Protein Albumin LDL Cholesterol Direct Vitamin B12 Crossmatch See Detail 11/16/21 11/16/21 11/16/21 15:25 17:21 22:43 WBC RBC Hgb 8.6 L D Hct 27.7 L D MCV MCH MCHC RDW Plt Count Seg Neuts % (Manual) Lymphocytes % (Manual) Seg Neutrophils # Man Lymphocytes # (Manual) Monocytes # (Manual) PT INR D-Dimer ABG pH ABG pO2 ABG HCO3 ABG O2 Saturation ABG Base Excess ABG Hemoglobin Oxyhemoglobin Sodium 148 H Potassium Chloride 113.2 H Carbon Dioxide BUN 84 H Creatinine Glucose 164 H POC Glucose 124 H Lactic Acid Calcium 7.6 L Phosphorus Magnesium AST ALT Alkaline Phosphatase Lactate Dehydrogenase Troponin T C-Reactive Protein NT-Pro-B Natriuret Pep Total Protein Albumin LDL Cholesterol Direct Vitamin B12 Crossmatch 11/16/21 11/17/21 11/17/21 23:07 05:33 05:56 WBC 25.1 H RBC 3.47 L Hgb 8.7 L Hct 28.5 L MCV MCH 25 L MCHC RDW 22.3 H Plt Count Seg Neuts % (Manual) Lymphocytes % (Manual) Seg Neutrophils # Man Lymphocytes # (Manual) Monocytes # (Manual) PT INR D-Dimer ABG pH ABG pO2 ABG HCO3 ABG O2 Saturation ABG Base Excess ABG Hemoglobin Oxyhemoglobin Sodium Potassium Chloride Carbon Dioxide BUN Creatinine Glucose POC Glucose 128 H 133 H Lactic Acid Calcium Phosphorus Magnesium AST ALT Alkaline Phosphatase Lactate Dehydrogenase Troponin T C-Reactive Protein NT-Pro-B Natriuret Pep Total Protein Albumin LDL Cholesterol Direct Vitamin B12 Crossmatch 11/17/21 11/17/21 11/17/21 05:56 11:00 11:55 WBC RBC Hgb 8.3 L Hct 26.9 L MCV MCH MCHC RDW Plt Count Seg Neuts % (Manual) Lymphocytes % (Manual) Seg Neutrophils # Man Lymphocytes # (Manual) Monocytes # (Manual) PT INR D-Dimer ABG pH ABG pO2 ABG HCO3 ABG O2 Saturation ABG Base Excess ABG Hemoglobin Oxyhemoglobin Sodium 151 H Potassium Chloride 113.6 H Carbon Dioxide BUN 85 H Creatinine Glucose 132 H POC Glucose 121 H Lactic Acid Calcium 7.8 L Phosphorus Magnesium AST ALT Alkaline Phosphatase Lactate Dehydrogenase Troponin T C-Reactive Protein NT-Pro-B Natriuret Pep Total Protein 5.1 L Albumin 2.2 L LDL Cholesterol Direct Vitamin B12 Crossmatch 11/17/21 11/17/21 11/18/21 18:04 18:55 00:26 WBC RBC Hgb 7.5 L 7.1 L Hct 24.8 L 23.6 L MCV MCH MCHC RDW Plt Count Seg Neuts % (Manual) Lymphocytes % (Manual) Seg Neutrophils # Man Lymphocytes # (Manual) Monocytes # (Manual) PT INR D-Dimer ABG pH ABG pO2 ABG HCO3 ABG O2 Saturation ABG Base Excess ABG Hemoglobin Oxyhemoglobin Sodium Potassium Chloride Carbon Dioxide BUN Creatinine Glucose POC Glucose 144 H Lactic Acid Calcium Phosphorus Magnesium AST ALT Alkaline Phosphatase Lactate Dehydrogenase Troponin T C-Reactive Protein NT-Pro-B Natriuret Pep Total Protein Albumin LDL Cholesterol Direct Vitamin B12 Crossmatch 11/18/21 11/18/21 11/18/21 00:43 05:10 05:10 WBC 12.5 H RBC 2.39 L Hgb 6.1 L Hct 20.2 L MCV MCH 25 L MCHC RDW 23.2 H Plt Count Seg Neuts % (Manual) Lymphocytes % (Manual) Seg Neutrophils # Man Lymphocytes # (Manual) Monocytes # (Manual) PT INR D-Dimer ABG pH ABG pO2 ABG HCO3 ABG O2 Saturation ABG Base Excess ABG Hemoglobin Oxyhemoglobin Sodium 131 L D Potassium 2.9 L* D Chloride 97.8 L Carbon Dioxide BUN 58 H Creatinine Glucose 665 H* POC Glucose 139 H Lactic Acid Calcium 7.0 L Phosphorus 2.20 L D Magnesium 1.50 L AST ALT Alkaline Phosphatase Lactate Dehydrogenase Troponin T C-Reactive Protein NT-Pro-B Natriuret Pep Total Protein Albumin LDL Cholesterol Direct Vitamin B12 Crossmatch 11/18/21 11/18/21 11/18/21 05:23 07:10 10:45 WBC RBC Hgb Hct MCV MCH MCHC RDW Plt Count Seg Neuts % (Manual) Lymphocytes % (Manual) Seg Neutrophils # Man Lymphocytes # (Manual) Monocytes # (Manual) PT INR D-Dimer ABG pH ABG pO2 ABG HCO3 ABG O2 Saturation ABG Base Excess ABG Hemoglobin Oxyhemoglobin Sodium 148 H D Potassium 3.1 L Chloride 111.9 H Carbon Dioxide BUN 63 H Creatinine Glucose 141 H POC Glucose 124 H Lactic Acid Calcium 8.1 L D Phosphorus Magnesium AST ALT Alkaline Phosphatase Lactate Dehydrogenase Troponin T C-Reactive Protein NT-Pro-B Natriuret Pep Total Protein Albumin LDL Cholesterol Direct Vitamin B12 Crossmatch See Detail 11/18/21 11/19/21 11/19/21 11:57 00:19 04:55 WBC RBC 3.35 L Hgb 9.0 L 8.9 L Hct 28.3 L D 28.1 L MCV MCH 27 L MCHC RDW 20.3 H Plt Count Seg Neuts % (Manual) Lymphocytes % (Manual) Seg Neutrophils # Man Lymphocytes # (Manual) Monocytes # (Manual) PT INR D-Dimer ABG pH ABG pO2 ABG HCO3 ABG O2 Saturation ABG Base Excess ABG Hemoglobin Oxyhemoglobin Sodium Potassium Chloride Carbon Dioxide BUN Creatinine Glucose POC Glucose 119 H Lactic Acid Calcium Phosphorus Magnesium AST ALT Alkaline Phosphatase Lactate Dehydrogenase Troponin T C-Reactive Protein NT-Pro-B Natriuret Pep Total Protein Albumin LDL Cholesterol Direct Vitamin B12 Crossmatch 11/19/21 11/19/21 11/20/21 04:55 05:42 00:55 WBC RBC Hgb 9.0 L Hct 28.6 L MCV MCH MCHC RDW Plt Count Seg Neuts % (Manual) Lymphocytes % (Manual) Seg Neutrophils # Man Lymphocytes # (Manual) Monocytes # (Manual) PT INR D-Dimer ABG pH ABG pO2 ABG HCO3 ABG O2 Saturation ABG Base Excess ABG Hemoglobin Oxyhemoglobin Sodium Potassium 3.5 L Chloride 108.6 H Carbon Dioxide BUN 47 H Creatinine Glucose 207 H POC Glucose 63 L Lactic Acid Calcium 7.1 L Phosphorus Magnesium AST ALT Alkaline Phosphatase Lactate Dehydrogenase Troponin T C-Reactive Protein NT-Pro-B Natriuret Pep Total Protein Albumin LDL Cholesterol Direct Vitamin B12 Crossmatch 11/20/21 11/20/21 11/20/21 05:40 05:40 Unknown WBC RBC 3.40 L Hgb 9.1 L Hct 28.8 L MCV MCH 27 L MCHC RDW 20.7 H Plt Count Seg Neuts % (Manual) Lymphocytes % (Manual) Seg Neutrophils # Man Lymphocytes # (Manual) Monocytes # (Manual) PT INR D-Dimer ABG pH ABG pO2 ABG HCO3 ABG O2 Saturation ABG Base Excess -2.7 L ABG Hemoglobin 9.5 L Oxyhemoglobin 94.3 L Sodium Potassium 3.5 L Chloride 108.9 H Carbon Dioxide BUN 37 H Creatinine Glucose 117 H POC Glucose Lactic Acid Calcium 7.5 L Phosphorus Magnesium AST ALT Alkaline Phosphatase Lactate Dehydrogenase Troponin T C-Reactive Protein NT-Pro-B Natriuret Pep Total Protein Albumin LDL Cholesterol Direct Vitamin B12 Crossmatch 11/21/21 11/21/21 11/21/21 04:30 04:30 16:00 WBC RBC 3.25 L Hgb 8.6 L Hct 28.1 L MCV MCH 26 L MCHC RDW 20.7 H Plt Count Seg Neuts % (Manual) Lymphocytes % (Manual) Seg Neutrophils # Man Lymphocytes # (Manual) Monocytes # (Manual) PT INR D-Dimer ABG pH ABG pO2 114.2 H ABG HCO3 ABG O2 Saturation ABG Base Excess ABG Hemoglobin 9.1 L Oxyhemoglobin Sodium 134 L Potassium Chloride Carbon Dioxide 20 L BUN 34 H Creatinine Glucose POC Glucose Lactic Acid Calcium 7.1 L Phosphorus Magnesium AST ALT Alkaline Phosphatase Lactate Dehydrogenase Troponin T C-Reactive Protein NT-Pro-B Natriuret Pep Total Protein Albumin LDL Cholesterol Direct Vitamin B12 Crossmatch 11/22/21 11/22/21 11/22/21 07:07 07:07 23:54 WBC RBC 3.30 L Hgb 9.0 L Hct 28.5 L MCV MCH 27 L MCHC RDW 21.0 H Plt Count Seg Neuts % (Manual) Lymphocytes % (Manual) Seg Neutrophils # Man Lymphocytes # (Manual) Monocytes # (Manual) PT INR D-Dimer ABG pH ABG pO2 ABG HCO3 ABG O2 Saturation ABG Base Excess ABG Hemoglobin Oxyhemoglobin Sodium Potassium Chloride Carbon Dioxide BUN 32 H Creatinine Glucose 106 H POC Glucose 110 H Lactic Acid Calcium 7.5 L Phosphorus Magnesium AST ALT Alkaline Phosphatase Lactate Dehydrogenase Troponin T C-Reactive Protein NT-Pro-B Natriuret Pep Total Protein Albumin LDL Cholesterol Direct Vitamin B12 Crossmatch 11/23/21 11/23/21 11/23/21 04:38 04:38 06:01 WBC RBC 3.23 L Hgb 8.8 L Hct 28.0 L MCV MCH 27 L MCHC RDW 21.3 H Plt Count Seg Neuts % (Manual) Lymphocytes % (Manual) Seg Neutrophils # Man Lymphocytes # (Manual) Monocytes # (Manual) PT INR D-Dimer ABG pH ABG pO2 ABG HCO3 ABG O2 Saturation ABG Base Excess ABG Hemoglobin Oxyhemoglobin Sodium 136 L Potassium Chloride Carbon Dioxide 20 L BUN 32 H Creatinine Glucose 109 H POC Glucose 115 H Lactic Acid Calcium 7.7 L Phosphorus Magnesium AST ALT Alkaline Phosphatase Lactate Dehydrogenase Troponin T C-Reactive Protein NT-Pro-B Natriuret Pep Total Protein Albumin LDL Cholesterol Direct Vitamin B12 Crossmatch 11/23/21 11/24/21 11/24/21 11:40 00:03 04:13 WBC RBC 3.18 L Hgb 8.5 L Hct 27.5 L MCV MCH 27 L MCHC RDW 21.6 H Plt Count Seg Neuts % (Manual) Lymphocytes % (Manual) Seg Neutrophils # Man Lymphocytes # (Manual) Monocytes # (Manual) PT INR D-Dimer ABG pH ABG pO2 ABG HCO3 ABG O2 Saturation ABG Base Excess ABG Hemoglobin Oxyhemoglobin Sodium Potassium Chloride Carbon Dioxide BUN Creatinine Glucose POC Glucose 117 H 111 H Lactic Acid Calcium Phosphorus Magnesium AST ALT Alkaline Phosphatase Lactate Dehydrogenase Troponin T C-Reactive Protein NT-Pro-B Natriuret Pep Total Protein Albumin LDL Cholesterol Direct Vitamin B12 Crossmatch 11/24/21 11/24/21 11/24/21 04:13 05:30 11:10 WBC RBC Hgb Hct MCV MCH MCHC RDW Plt Count Seg Neuts % (Manual) Lymphocytes % (Manual) Seg Neutrophils # Man Lymphocytes # (Manual) Monocytes # (Manual) PT INR D-Dimer ABG pH ABG pO2 ABG HCO3 ABG O2 Saturation ABG Base Excess ABG Hemoglobin Oxyhemoglobin Sodium Potassium Chloride Carbon Dioxide BUN 31 H Creatinine Glucose 101 H POC Glucose 115 H 107 H Lactic Acid Calcium 7.7 L Phosphorus Magnesium AST ALT Alkaline Phosphatase Lactate Dehydrogenase Troponin T C-Reactive Protein NT-Pro-B Natriuret Pep Total Protein Albumin LDL Cholesterol Direct Vitamin B12 Crossmatch 11/24/21 11/24/21 11/25/21 16:34 17:57 05:12 WBC RBC 3.11 L Hgb 8.2 L Hct 26.6 L MCV MCH 26 L MCHC RDW 21.3 H Plt Count Seg Neuts % (Manual) Lymphocytes % (Manual) Seg Neutrophils # Man Lymphocytes # (Manual) Monocytes # (Manual) PT INR D-Dimer ABG pH ABG pO2 ABG HCO3 ABG O2 Saturation ABG Base Excess ABG Hemoglobin Oxyhemoglobin Sodium Potassium Chloride Carbon Dioxide BUN Creatinine Glucose POC Glucose 115 H 110 H Lactic Acid Calcium Phosphorus Magnesium AST ALT Alkaline Phosphatase Lactate Dehydrogenase Troponin T C-Reactive Protein NT-Pro-B Natriuret Pep Total Protein Albumin LDL Cholesterol Direct Vitamin B12 Crossmatch 11/25/21 11/25/21 11/26/21 05:12 11:20 05:00 WBC RBC 3.30 L Hgb 8.8 L Hct 28.2 L MCV MCH 27 L MCHC RDW 20.7 H Plt Count Seg Neuts % (Manual) Lymphocytes % (Manual) Seg Neutrophils # Man Lymphocytes # (Manual) Monocytes # (Manual) PT INR D-Dimer ABG pH ABG pO2 ABG HCO3 ABG O2 Saturation ABG Base Excess ABG Hemoglobin Oxyhemoglobin Sodium Potassium Chloride Carbon Dioxide BUN 32 H Creatinine Glucose 118 H POC Glucose 118 H Lactic Acid Calcium 8.2 L Phosphorus Magnesium AST ALT Alkaline Phosphatase Lactate Dehydrogenase Troponin T C-Reactive Protein NT-Pro-B Natriuret Pep Total Protein Albumin LDL Cholesterol Direct Vitamin B12 Crossmatch 11/26/21 11/26/21 11/26/21 05:00 05:00 05:44 WBC RBC Hgb Hct MCV MCH MCHC RDW Plt Count Seg Neuts % (Manual) Lymphocytes % (Manual) Seg Neutrophils # Man Lymphocytes # (Manual) Monocytes # (Manual) PT 16.9 H INR 1.24 H D-Dimer ABG pH ABG pO2 ABG HCO3 ABG O2 Saturation ABG Base Excess ABG Hemoglobin Oxyhemoglobin Sodium Potassium Chloride Carbon Dioxide BUN 31 H Creatinine Glucose 104 H POC Glucose 110 H Lactic Acid Calcium 7.9 L Phosphorus Magnesium AST ALT Alkaline Phosphatase Lactate Dehydrogenase Troponin T C-Reactive Protein NT-Pro-B Natriuret Pep Total Protein Albumin LDL Cholesterol Direct Vitamin B12 Crossmatch 11/26/21 11/27/21 11/27/21 23:55 07:40 07:40 WBC RBC 3.18 L Hgb 8.5 L Hct 27.0 L MCV MCH 27 L MCHC RDW 21.2 H Plt Count Seg Neuts % (Manual) Lymphocytes % (Manual) Seg Neutrophils # Man Lymphocytes # (Manual) Monocytes # (Manual) PT INR D-Dimer ABG pH ABG pO2 ABG HCO3 ABG O2 Saturation ABG Base Excess ABG Hemoglobin Oxyhemoglobin Sodium Potassium Chloride Carbon Dioxide BUN 27 H Creatinine Glucose 112 H POC Glucose 63 L Lactic Acid Calcium 7.6 L Phosphorus Magnesium AST ALT Alkaline Phosphatase Lactate Dehydrogenase Troponin T C-Reactive Protein NT-Pro-B Natriuret Pep Total Protein Albumin LDL Cholesterol Direct Vitamin B12 Crossmatch 11/27/21 11/27/21 11/27/21 12:04 13:40 13:40 WBC RBC 3.31 L Hgb 8.7 L Hct 28.0 L MCV MCH 26 L MCHC RDW 20.7 H Plt Count Seg Neuts % (Manual) Lymphocytes % (Manual) Seg Neutrophils # Man Lymphocytes # (Manual) Monocytes # (Manual) PT INR D-Dimer ABG pH ABG pO2 ABG HCO3 ABG O2 Saturation ABG Base Excess ABG Hemoglobin Oxyhemoglobin Sodium 136 L Potassium Chloride Carbon Dioxide BUN 25 H Creatinine Glucose 127 H POC Glucose 109 H Lactic Acid Calcium 7.6 L Phosphorus Magnesium 1.40 L AST ALT Alkaline Phosphatase Lactate Dehydrogenase Troponin T C-Reactive Protein NT-Pro-B Natriuret Pep Total Protein Albumin LDL Cholesterol Direct Vitamin B12 Crossmatch 11/27/21 11/27/21 11/28/21 17:44 23:33 12:20 WBC RBC Hgb Hct MCV MCH MCHC RDW Plt Count Seg Neuts % (Manual) Lymphocytes % (Manual) Seg Neutrophils # Man Lymphocytes # (Manual) Monocytes # (Manual) PT INR D-Dimer ABG pH ABG pO2 ABG HCO3 ABG O2 Saturation ABG Base Excess ABG Hemoglobin Oxyhemoglobin Sodium Potassium Chloride Carbon Dioxide BUN Creatinine Glucose POC Glucose 107 H 108 H 114 H Lactic Acid Calcium Phosphorus Magnesium AST ALT Alkaline Phosphatase Lactate Dehydrogenase Troponin T C-Reactive Protein NT-Pro-B Natriuret Pep Total Protein Albumin LDL Cholesterol Direct Vitamin B12 Crossmatch 11/29/21 11/29/21 11/29/21 00:09 03:20 03:20 WBC RBC 3.05 L Hgb 8.2 L Hct 25.8 L MCV MCH 27 L MCHC RDW 20.9 H Plt Count Seg Neuts % (Manual) Lymphocytes % (Manual) Seg Neutrophils # Man Lymphocytes # (Manual) Monocytes # (Manual) PT INR D-Dimer ABG pH ABG pO2 ABG HCO3 ABG O2 Saturation ABG Base Excess ABG Hemoglobin Oxyhemoglobin Sodium 133 L Potassium Chloride Carbon Dioxide BUN 24 H Creatinine Glucose 137 H POC Glucose 134 H Lactic Acid Calcium 7.4 L Phosphorus Magnesium AST ALT Alkaline Phosphatase Lactate Dehydrogenase Troponin T C-Reactive Protein NT-Pro-B Natriuret Pep Total Protein Albumin LDL Cholesterol Direct Vitamin B12 Crossmatch 11/29/21 11/29/21 11/29/21 05:38 11:39 17:11 WBC RBC Hgb Hct MCV MCH MCHC RDW Plt Count Seg Neuts % (Manual) Lymphocytes % (Manual) Seg Neutrophils # Man Lymphocytes # (Manual) Monocytes # (Manual) PT INR D-Dimer ABG pH ABG pO2 ABG HCO3 ABG O2 Saturation ABG Base Excess ABG Hemoglobin Oxyhemoglobin Sodium Potassium Chloride Carbon Dioxide BUN Creatinine Glucose POC Glucose 117 H 143 H 124 H Lactic Acid Calcium Phosphorus Magnesium AST ALT Alkaline Phosphatase Lactate Dehydrogenase Troponin T C-Reactive Protein NT-Pro-B Natriuret Pep Total Protein Albumin LDL Cholesterol Direct Vitamin B12 Crossmatch 11/29/21 11/30/21 11/30/21 20:15 05:40 05:40 WBC 12.6 H RBC 3.41 L Hgb 9.1 L Hct 28.9 L MCV MCH 27 L MCHC RDW 20.4 H Plt Count Seg Neuts % (Manual) Lymphocytes % (Manual) Seg Neutrophils # Man Lymphocytes # (Manual) Monocytes # (Manual) PT INR D-Dimer ABG pH ABG pO2 ABG HCO3 ABG O2 Saturation ABG Base Excess ABG Hemoglobin Oxyhemoglobin Sodium Potassium Chloride Carbon Dioxide BUN 24 H Creatinine Glucose 131 H POC Glucose Lactic Acid Calcium 7.6 L Phosphorus Magnesium AST ALT Alkaline Phosphatase Lactate Dehydrogenase Troponin T 0.045 H C-Reactive Protein NT-Pro-B Natriuret Pep Total Protein Albumin LDL Cholesterol Direct 25 L Vitamin B12 Crossmatch 11/30/21 11/30/21 12/01/21 11:29 16:51 05:00 WBC RBC 2.97 L Hgb 8.0 L Hct 25.0 L MCV MCH 27 L MCHC RDW 20.8 H Plt Count Seg Neuts % (Manual) Lymphocytes % (Manual) Seg Neutrophils # Man Lymphocytes # (Manual) Monocytes # (Manual) PT INR D-Dimer ABG pH ABG pO2 ABG HCO3 ABG O2 Saturation ABG Base Excess ABG Hemoglobin Oxyhemoglobin Sodium Potassium Chloride Carbon Dioxide BUN Creatinine Glucose POC Glucose 123 H 114 H Lactic Acid Calcium Phosphorus Magnesium AST ALT Alkaline Phosphatase Lactate Dehydrogenase Troponin T C-Reactive Protein NT-Pro-B Natriuret Pep Total Protein Albumin LDL Cholesterol Direct Vitamin B12 Crossmatch 12/01/21 12/01/21 12/01/21 05:00 05:25 11:54 WBC RBC Hgb Hct MCV MCH MCHC RDW Plt Count Seg Neuts % (Manual) Lymphocytes % (Manual) Seg Neutrophils # Man Lymphocytes # (Manual) Monocytes # (Manual) PT INR D-Dimer ABG pH ABG pO2 ABG HCO3 ABG O2 Saturation ABG Base Excess ABG Hemoglobin Oxyhemoglobin Sodium 136 L Potassium Chloride Carbon Dioxide BUN 24 H Creatinine Glucose 117 H POC Glucose 108 H 107 H Lactic Acid Calcium 7.5 L Phosphorus Magnesium 1.60 L AST ALT Alkaline Phosphatase Lactate Dehydrogenase Troponin T C-Reactive Protein NT-Pro-B Natriuret Pep Total Protein Albumin LDL Cholesterol Direct Vitamin B12 Crossmatch 12/01/21 12/02/21 12/02/21 17:40 00:07 04:20 WBC RBC 2.92 L Hgb 7.7 L Hct 24.3 L MCV MCH 26 L MCHC RDW 20.5 H Plt Count Seg Neuts % (Manual) Lymphocytes % (Manual) Seg Neutrophils # Man Lymphocytes # (Manual) Monocytes # (Manual) PT INR D-Dimer ABG pH ABG pO2 ABG HCO3 ABG O2 Saturation ABG Base Excess ABG Hemoglobin Oxyhemoglobin Sodium Potassium Chloride Carbon Dioxide BUN Creatinine Glucose POC Glucose 123 H 110 H Lactic Acid Calcium Phosphorus Magnesium AST ALT Alkaline Phosphatase Lactate Dehydrogenase Troponin T C-Reactive Protein NT-Pro-B Natriuret Pep Total Protein Albumin LDL Cholesterol Direct Vitamin B12 Crossmatch 12/02/21 12/02/21 12/02/21 04:20 11:17 18:20 WBC RBC Hgb Hct MCV MCH MCHC RDW Plt Count Seg Neuts % (Manual) Lymphocytes % (Manual) Seg Neutrophils # Man Lymphocytes # (Manual) Monocytes # (Manual) PT INR D-Dimer ABG pH ABG pO2 ABG HCO3 ABG O2 Saturation ABG Base Excess ABG Hemoglobin Oxyhemoglobin Sodium 135 L Potassium Chloride Carbon Dioxide BUN 26 H Creatinine Glucose 121 H POC Glucose 117 H 113 H Lactic Acid Calcium 7.4 L Phosphorus Magnesium AST ALT Alkaline Phosphatase Lactate Dehydrogenase Troponin T C-Reactive Protein NT-Pro-B Natriuret Pep Total Protein Albumin LDL Cholesterol Direct Vitamin B12 Crossmatch 12/03/21 12/03/21 12/03/21 00:12 04:00 04:00 WBC RBC 2.99 L Hgb 7.8 L Hct 24.6 L MCV MCH 26 L MCHC RDW 20.2 H Plt Count Seg Neuts % (Manual) Lymphocytes % (Manual) Seg Neutrophils # Man Lymphocytes # (Manual) Monocytes # (Manual) PT INR D-Dimer ABG pH ABG pO2 ABG HCO3 ABG O2 Saturation ABG Base Excess ABG Hemoglobin Oxyhemoglobin Sodium 136 L Potassium Chloride Carbon Dioxide BUN 27 H Creatinine Glucose 133 H POC Glucose 121 H Lactic Acid Calcium 7.5 L Phosphorus Magnesium AST ALT Alkaline Phosphatase Lactate Dehydrogenase Troponin T C-Reactive Protein NT-Pro-B Natriuret Pep Total Protein Albumin LDL Cholesterol Direct Vitamin B12 Crossmatch 02/12/03/21 12/03/21 06:30 11:13 16:00 WBC RBC Hgb Hct MCV MCH MCHC RDW Plt Count Seg Neuts % (Manual) Lymphocytes % (Manual) Seg Neutrophils # Man Lymphocytes # (Manual) Monocytes # (Manual) PT INR D-Dimer ABG pH ABG pO2 ABG HCO3 ABG O2 Saturation ABG Base Excess ABG Hemoglobin Oxyhemoglobin Sodium Potassium Chloride Carbon Dioxide BUN Creatinine Glucose POC Glucose 129 H 125 H 125 H Lactic Acid Calcium Phosphorus Magnesium AST ALT Alkaline Phosphatase Lactate Dehydrogenase Troponin T C-Reactive Protein NT-Pro-B Natriuret Pep Total Protein Albumin LDL Cholesterol Direct Vitamin B12 Crossmatch 12/03/21 12/04/21 12/04/21 23:32 04:00 05:36 WBC RBC Hgb Hct MCV MCH MCHC RDW Plt Count Seg Neuts % (Manual) Lymphocytes % (Manual) Seg Neutrophils # Man Lymphocytes # (Manual) Monocytes # (Manual) PT INR D-Dimer ABG pH ABG pO2 ABG HCO3 ABG O2 Saturation ABG Base Excess ABG Hemoglobin Oxyhemoglobin Sodium Potassium 3.5 L Chloride Carbon Dioxide BUN 26 H Creatinine 0.5 L Glucose 151 H POC Glucose 133 H 142 H Lactic Acid Calcium 8.3 L Phosphorus Magnesium AST ALT Alkaline Phosphatase Lactate Dehydrogenase Troponin T C-Reactive Protein NT-Pro-B Natriuret Pep Total Protein Albumin LDL Cholesterol Direct Vitamin B12 Crossmatch 12/04/21 12/04/21 12/05/21 11:24 15:58 04:36 WBC RBC Hgb Hct MCV MCH MCHC RDW Plt Count Seg Neuts % (Manual) Lymphocytes % (Manual) Seg Neutrophils # Man Lymphocytes # (Manual) Monocytes # (Manual) PT INR D-Dimer ABG pH ABG pO2 ABG HCO3 ABG O2 Saturation ABG Base Excess ABG Hemoglobin Oxyhemoglobin Sodium Potassium Chloride Carbon Dioxide BUN 21 H Creatinine 0.5 L Glucose 119 H POC Glucose 130 H 111 H Lactic Acid Calcium 8.3 L Phosphorus Magnesium AST ALT Alkaline Phosphatase Lactate Dehydrogenase Troponin T C-Reactive Protein NT-Pro-B Natriuret Pep Total Protein Albumin LDL Cholesterol Direct Vitamin B12 Crossmatch 12/05/21 12/05/21 12/05/21 05:15 10:40 11:12 WBC RBC 2.98 L Hgb 8.1 L Hct 24.6 L MCV MCH 27 L MCHC RDW 20.8 H Plt Count Seg Neuts % (Manual) Lymphocytes % (Manual) Seg Neutrophils # Man Lymphocytes # (Manual) Monocytes # (Manual) PT INR D-Dimer ABG pH ABG pO2 ABG HCO3 ABG O2 Saturation ABG Base Excess ABG Hemoglobin Oxyhemoglobin Sodium Potassium Chloride Carbon Dioxide BUN Creatinine Glucose POC Glucose 107 H 110 H Lactic Acid Calcium Phosphorus Magnesium AST ALT Alkaline Phosphatase Lactate Dehydrogenase Troponin T C-Reactive Protein NT-Pro-B Natriuret Pep Total Protein Albumin LDL Cholesterol Direct Vitamin B12 Crossmatch 12/05/21 12/06/21 12/06/21 23:39 04:25 04:25 WBC RBC 2.95 L Hgb 7.9 L Hct 24.7 L MCV MCH 27 L MCHC RDW 20.9 H Plt Count Seg Neuts % (Manual) Lymphocytes % (Manual) Seg Neutrophils # Man Lymphocytes # (Manual) Monocytes # (Manual) PT INR D-Dimer ABG pH ABG pO2 ABG HCO3 ABG O2 Saturation ABG Base Excess ABG Hemoglobin Oxyhemoglobin Sodium Potassium Chloride Carbon Dioxide BUN 22 H Creatinine 0.5 L Glucose 136 H POC Glucose 118 H Lactic Acid Calcium 8.2 L Phosphorus Magnesium AST ALT Alkaline Phosphatase Lactate Dehydrogenase Troponin T C-Reactive Protein NT-Pro-B Natriuret Pep Total Protein Albumin LDL Cholesterol Direct Vitamin B12 Crossmatch 12/06/21 12/06/21 12/07/21 05:28 11:27 04:00 WBC RBC Hgb 7.2 L Hct 21.8 L MCV MCH MCHC RDW Plt Count Seg Neuts % (Manual) Lymphocytes % (Manual) Seg Neutrophils # Man Lymphocytes # (Manual) Monocytes # (Manual) PT INR D-Dimer ABG pH ABG pO2 ABG HCO3 ABG O2 Saturation ABG Base Excess ABG Hemoglobin Oxyhemoglobin Sodium Potassium Chloride Carbon Dioxide BUN Creatinine Glucose POC Glucose 142 H 126 H Lactic Acid Calcium Phosphorus Magnesium AST ALT Alkaline Phosphatase Lactate Dehydrogenase Troponin T C-Reactive Protein NT-Pro-B Natriuret Pep Total Protein Albumin LDL Cholesterol Direct Vitamin B12 Crossmatch 12/07/21 12/07/21 12/07/21 04:00 05:30 11:12 WBC RBC Hgb Hct MCV MCH MCHC RDW Plt Count Seg Neuts % (Manual) Lymphocytes % (Manual) Seg Neutrophils # Man Lymphocytes # (Manual) Monocytes # (Manual) PT INR D-Dimer ABG pH ABG pO2 ABG HCO3 ABG O2 Saturation ABG Base Excess ABG Hemoglobin Oxyhemoglobin Sodium Potassium Chloride Carbon Dioxide BUN 22 H Creatinine Glucose 119 H POC Glucose 121 H 124 H Lactic Acid Calcium 8.0 L Phosphorus Magnesium AST ALT Alkaline Phosphatase Lactate Dehydrogenase Troponin T C-Reactive Protein NT-Pro-B Natriuret Pep Total Protein Albumin LDL Cholesterol Direct Vitamin B12 Crossmatch 12/08/21 12/08/21 12/08/21 04:00 04:00 05:39 WBC RBC 2.81 L Hgb 7.7 L Hct 23.5 L MCV MCH MCHC RDW 21.2 H Plt Count Seg Neuts % (Manual) Lymphocytes % (Manual) Seg Neutrophils # Man Lymphocytes # (Manual) Monocytes # (Manual) PT INR D-Dimer ABG pH ABG pO2 ABG HCO3 ABG O2 Saturation ABG Base Excess ABG Hemoglobin Oxyhemoglobin Sodium 135 L Potassium Chloride Carbon Dioxide BUN 23 H Creatinine Glucose 109 H POC Glucose 112 H Lactic Acid Calcium Phosphorus Magnesium AST ALT Alkaline Phosphatase Lactate Dehydrogenase Troponin T C-Reactive Protein NT-Pro-B Natriuret Pep Total Protein Albumin LDL Cholesterol Direct Vitamin B12 Crossmatch 12/08/21 12/09/21 12/09/21 11:03 04:20 04:20 WBC RBC 2.67 L Hgb 7.6 L Hct 22.1 L MCV MCH MCHC RDW 20.8 H Plt Count Seg Neuts % (Manual) Lymphocytes % (Manual) Seg Neutrophils # Man Lymphocytes # (Manual) Monocytes # (Manual) PT INR D-Dimer ABG pH ABG pO2 ABG HCO3 ABG O2 Saturation ABG Base Excess ABG Hemoglobin Oxyhemoglobin Sodium 135 L Potassium Chloride 97.8 L Carbon Dioxide BUN 26 H Creatinine Glucose 119 H POC Glucose 108 H Lactic Acid Calcium 7.7 L Phosphorus Magnesium AST ALT Alkaline Phosphatase Lactate Dehydrogenase Troponin T C-Reactive Protein NT-Pro-B Natriuret Pep Total Protein Albumin LDL Cholesterol Direct Vitamin B12 Crossmatch 12/09/21 12/10/21 11:26 04:33 WBC RBC Hgb Hct MCV MCH MCHC RDW Plt Count Seg Neuts % (Manual) Lymphocytes % (Manual) Seg Neutrophils # Man Lymphocytes # (Manual) Monocytes # (Manual) PT INR D-Dimer ABG pH ABG pO2 ABG HCO3 ABG O2 Saturation ABG Base Excess ABG Hemoglobin Oxyhemoglobin Sodium 136 L Potassium Chloride Carbon Dioxide BUN 27 H Creatinine Glucose 117 H POC Glucose 110 H Lactic Acid Calcium 8.2 L Phosphorus Magnesium AST ALT Alkaline Phosphatase Lactate Dehydrogenase Troponin T C-Reactive Protein NT-Pro-B Natriuret Pep Total Protein Albumin LDL Cholesterol Direct Vitamin B12 Crossmatch Allied health notes reviewed: nursing
--- NOTE | 2021-12-10 17:17 | Progress Note ---
Assessment and Plan Assessment and plan: This is a 81-year-old female with known history of diabetes mellitus, hypertension, PPM, and arthritis admitted for sepsis and acute hypoxia respiratory failure 2/2 bilateral pneumonia requiring intubation and ventilatory support Assessment and Plan Neuro : Acute encephalopathy (resolved), agitation/ anxiety -Neurology consulted, appreciate recommendations -CT brain showed no acute events -EEG interpreted as abnormal record due to diffuse slowing noted throughout the recording, suggestive of encephalopathic process and/or drug effect, possibilities of postictal state cannot be totally excluded. Clinical correlation is in order -MRI brain not obtained-> patient has metal in her body -Repeat CT head with no acute findings -Reorientation as needed -Ammonia 42, B12 1823, TSH 1.5 -BuSpar, fentanyl patch, Seroquel, [place], Xanax, gabapentin Cardio: Heart failure with reduced EF, h/o chronic heart block s/p PPM, HTN/CAD s/p PCI (2004), Moderate pulmonary HTN, cardiomyopathy -s/p vasopressor support with levophed -11/04 echocardiogram shows EF 30 to 35%, Moderate pulmonary HTN RVSP 49 -Cardiology consulted, appreciate recommendations -Continue beta-charleen and statin therapy -Started midodrine -Not on aspirin due to allergy -Blood pressure monitoring per protocol -As needed nitroglycerin Resp: Acute hypoxic respiratory failure secondary to bilateral pneumonia, left pleural effusion. Right pneumothorax (resolved) -COVID-19 PCR negative -Intubated on 11/06 with 6.00 ETT at 18 at the lip and changed over bougie on 11/11-7.50 ETT at 20 at the lip -See RT notes for titration -PSV today -Surgery consult for trach -Received trach/PEG on 11/26 -S/p bedside bronchoscopy on 11/11 complicated by pneumothorax -S/p chest tube placement for right pneumothorax and dislodgment by patient on 11/15 -ABG/CXR per CCM -VAP bundle -Right chest wall ultrasound showed pleural effusion s/p chest tube -Review right chest wall ultrasound shows small to mod pleural effusion -Restarted on Lasix -US thoracentesis ordered -SPO2 monitoring -Mucomyst every 8 -Albuterol every 8 GI: S/p GI bleed, duodenal ulcer, transaminitis -GI consulted, appreciate recommendations -Nutrition consult for tube feeding -BR: Senokot, MiraLAX -s/p peg 11/26 -H2 charleen -Carafate -24-hour +174 ml -BM 12/07 -Gastric occult positive : Urinary retention, hyponatremia, hypochloremia -Gamble catheter in place -Strict intake and output -Trend BMP ID: Septic shock (POA), bilateral pneumonia, bacteremia -Infectious disease consulted, appreciate recommendations -COVID-19 PCR negative -Presented with fevers, leukocytosis and hypotension -11/04 blood cultures positive with a group B strep bacteremia 12/19 however repeat blood cultures on the with no growth to date -Echo showed no evidence of vegetation -ABX therapy: Ceftriaxone (), vancomycin (11/05, ), clindamycin ), cefepime , ) -Monitor WBC and fever curve -Recultured on 11/11 with NGTD -Bedside bronchoscopy for mucous plug on CXR 11/11 Heme: Acute DVT in the right external iliac vein, common femoral vein, superior aspect of femoral vein, Acute microcytic anemia -Evidenced on bilateral upper lower extremity ultrasound -S/p 5 unit PRBC -Trend CBC -Transfuse for hemoglobin less than 7 -S/p IVC filter Endo: h/o DM and hypothyroidism -Continue home Synthroid -SSI -Accu-Cheks every 6 -Avoid hypoglycemia The high probability of a clinically significant, sudden or life threatening deterioration of the [multi] system(s) required my full and direct attention, intervention and personal management. The aggregate critical care time was [60] minutes. This time is in addition to time spent performing reported procedures but includes the following: [x] Data Review and interpretation [x] Patient assessment and monitoring of vital signs [x] Documentation [x] Medication orders and management Disposition Plan: icu Total Time Spent with Patient (Minutes): 60 History Interval history: This is an 82-year-old female with DM, HTN , PPM and arthritis who presented to the emergency department on 11/04 for shortness of breath ongoing for the past 3 days, cough and according to family a fever of 102.2. Upon arrival of EMS patient was found to be tachypneic and hypoxic with SPO2 of 76% on room air which later improved to 88% on nonrebreather. Work-up in the emergency department included a CXR which showed bilateral interstitial pulmonary edema with bilateral pleural effusions and bibasilar opacities, leukocytosis and anemia with a hemoglobin of 6.1. Patient was admitted to the hospitalist service with acute anemia, acute hypoxic respiratory failure, bilateral pneumonia and COVID-19 PUI with consults to pulmonology, infectious disease and later cardiology. Patient was eventually intubated in the emergency department on 11/06. Hospital Course to date: 11/04/2021: Empiric therapy with iv levaquin/vancomycin. COVID PCR pending. Will consult ID. PCCM consulted, will follow recs. Hypotensive this AM, ordered bolus and fluids at 150 cc/hr. May require pressor support if bp does not improve. 11/05/2021: GBS on bcx +, currently on rocephin IV. Currently on bipap due to respiratory distress overnight. Worsening BL opacities on CXR. May be volume overload vs pneumonia. Unfortunately bp too low for lasix at this point. WIll continue levophed and bipap. Once able to tolerate, may do trial of albumin/lasix. Call attempt made to Niraj, no response. Will try again tomorrow to update. 11/06/2021: Decompensated overnight requiring intubation. CXR shows worsening interstitial infiltrates. Currenlty on dopamine, levophed, vasopressin. PICC line ordered. Advised RN to place gamble for I/O monitoring. Would benefit from diuresis but very volume overloaded. Prognosis guarded 11/08: Off sedation this am, remains unresponsive only grimace to pain. Hold all sedatives agents for now, patient is off pressors this am. Hypernatremia from today's lab- D5W X1bag, and low K repleted, repeat lab in the am. Severe constipation also noted from KUB, BR added. 11/09: Sudden SPO2 drop in the 60s this am. Patient was manually bagged and deep suctioned. Patient is currently stable on the vent, repeat CXR with no significant change. D/w CCM Mucomyst and brochodilator added. Patient mentation is unchanged, continue to hold off on sedative agents. Neurology consulted. 11/10: Acute DVT noted on bilateral lower extremity Doppler ultrasound therefore she was started on Lovenox treatment dose. Failed SBT. Hypernatremia and hyperchloremia noted, free water flush adjusted. 11/11: Patient noted to be febrile with increasing of the cytosis, UA/BC sent and CXR ordered. ID escalated antibiotics to cefepime. CXR demonstrated mucous plug, bedside bronchoscopy was performed and O ETT was changed over bougie from 6 cm to 7.5. Patient was noted to have a pneumothorax postprocedure and chest tube was placed. Family updated by [facility]. Free water flush increased and will add Jaswant supplementation. 11/12: Patient not noted to follow commands, hypernatremia worsen/persist, increasing free water flush, potassium and magnesium and phosphorus repleted. Hemoglobin noted to be 7.1/24.5 from 7.03/12 yesterday. We will continue to trend and monitor. Vent changes per CCM. Repeat CXR showed no residual pneumothorax. Consider waterseal tomorrow. Given persistent leukocytosis antibiotics escalated to cefepime per ID. 11/13: Remains on cefepime and vancomycin, vent changes per [facility]. Anemia noted and given 1 unit PRBC. And beta-charleen held in setting of Levophed drip infusing. Remains on fentanyl drip. 11/14: Patient put on CPAP trial by [facility], will continue chest tube until after extubation. Will rest on assist control. CT brain was cancelled by cradle slide maker and reordered. 11/15: Patient removed chest tube overnight. Will obtain cxr. remains on low dose levo. CTH completed with no acute findings. RT to place on CPAP. 11/16: Hypernatremia/hyperchloremia noted on the increase of day water flushes. Anemia noted and ordered PRBC. asked RT to place on cpap but not done yet 11/17: Patient remains on the vent, awake and following commands. H&H stable s/p 2units PRBCs. GI on consult, no intervention at this time. Will continue protonix gtt and serial H&H Q6hrs. Keep patient NPO for now, D5w added for hypernatremia and NPO status. Plan for IVC filter placement today by Vascular. 11/18: Patient is s/p IVC filter. H&H continue to trend down, hbg 6.1 this am, 1 unit of PRBCs ordered. Plan for possible EGD today by GI. Keep patient NPO, continue PPI drip and serial H&H Q6hrs. Electrolytes repleted, repeat lab in the am 11/19: S/p EGD- larger duodenal ulcer noted, see operative note. GI recommendations noted also noted. H&H stable this am. Keep patient on protonix gtt for now. Will keep patient NPO, continue IVF and serial H&H for now. Electrolytes repleted, repeat labs in the am 11/20: Very agitated and restless this am, fentanyl gtt resumed. Patient remains on protonix gtt, H&H remains stable. Will switch protonix gtt to IV BID, continue carafate and okay to resume meds at this time. Will F/u with GI to see if TF can be resumed. Gamble was reinserted overnight for retention. Electrolytes repleted, repeat in the am. Plan for possible PST today for possible extubation per CCM. 11/21: Patient is now on seroquel and patient's home buspar resumed. Patient more calm this morning, fentanyl gtt is off. H&H remains stable and patient is fabienne ating TF. Patient had a runs of Vtach/PVCs this am, BB added per Cardio. Continue daily PS and wean trial for possible extubation. 11/22: Back on fentanyl gtt overnight , RASS o to -1, following commands. Patient failed PST this am due to increased work of breathing and low SPO2, ABG pending. Patient is also with worsen pitting edema, lasix is still on hold. Will discuss with cardio and CCM to possibly resume lasix. 11/23: MARIA DEL CARMEN overnight. Patient failed PST again this am. Per CCM plan for possible trach and PEG, hold off on IV lasix for now. General surgery consulted and family is aware of possible Trach and PEG. 11/24: Trach/PEG pending this week, continue SBT/SAT as tolerated. No acute events reported overnight. 11/25: Patient was n.p.o. overnight and will remain n.p.o. tonight for trach/PEG tomorrow morning. She failed to support trial again. KUB obtained due to distended belly. 11/26: Patient scheduled for tracheostomy and PEG tube placement today, has been n.p.o. since midnight. No acute events reported overnight. [facility] ordered simethicone scheduled. 11/27: No acute events reported overnight, patient received trach/PEG yesterday. Has been on feedings since last night. Still awaiting LTAC placement. 11/28: Patient magnesium repleted, repeat a.m. labs, SBT 11/29: Patient complains of chest pain but ECG obtained which showed no acute findings, ordered troponin. Patient failed CPAP yesterday and was trialed again today. levophed was restarted but will aggressively wean 11/30: Patient failed SBT. Continue supportive care. Started gabapentin today 12/01: MARIA DEL CARMEN overnight. Continue daily PST. Case management to arrange possible placement 12/02: Report of dark stools overnight, patient is hemodynamically stable. H&H stable, patient is on PPI. Will continue to trend H&H. Continue daily PST as tolerated. Awaiting LTAC vs SNF placement. 12/03: Hypotensive overnight, requiring low dose pressors. S/p X3 days of gentle diurese. Will continue to monitor, wean off pressors as tolerated for MAP of 65. Patient Failed PST yesterday, case management to follow up with insurance for possible LTAC placement. Continue daily PST as tolerated. PT eval and treat ordered. 12/04: Increased agitation and anxiety overnight, remains on buspar and seroquel, trazadone added to promote rest. Patient is now working with PT, keep patient engage and awake during the day so she can rest at night. No BM for over 5 days, BR was adjusted. Patient did not tolerate PST again yesterday, continue daily PST as tolerated. Continue to titrate pressor for MAP above 65. Pending possible LTAC placement, case management to arrange. 12/05: Still not getting much rest overnight, will add melatonin for sleep. Continue to engage patient during the day and promote rest at night. TF was held due to concern for possible bleeding, H&H remains stable and stools normal this am. Resume TF and continue PPI and carafate. Remains on low dose levophed, titrate as tolerated. Continue daily PST. Possible LTAC placement, awaiting approval. 12/06: MARIA DEL CARMEN overnight. Patient rested overnight. Continue supportive measures. Daily PST as tolerated. Awaiting possible LTAC placement 12/07: MARIA DEL CARMEN overnight. Plan for Tpiece trial today. Continue current supportive measures. Possible LTAC placement 12/08: Patient placed on pressure support trial again today, started on Xanax, no acute events reported overnight. Awaiting insurance approval for LTAC. 12/09: Levophed discontinued, LTAC transfer denied, started on midodrine and Lasix, ultrasound chest pending, started on Xanax 0.[address] De León updated family at bedside today. Started on Dilaudid every 3 hours as needed. 12/10: Patient placed on CPAP trial this morning, no acute events reported overnight. Will order ultrasound-guided thoracentesis. Hospitalist Physical - Physical exam Narrative exam: General appearance: Present: no acute distress, other (Trah and on the vent) - EENT Eyes: Present: PERRL, EOM intact ENT: hearing intact, clear oral mucosa, dentition normal - Neck Neck: Present: normal ROM - Respiratory Respiratory effort: normal Respiratory: bilateral: diminished - Cardiovascular Rhythm: regular Heart Sounds: Present: S1 & S2. Absent: systolic murmur - Extremities Extremities: no ischemia, pulses intact, pulses symmetrical, No edema, normal temperature, normal color Peripheral Pulses: within normal limits - Abdominal General gastrointestinal: soft, non-tender, non-distended, normal bowel sounds - Integumentary Integumentary: Present: warm, dry - Psychiatric Psychiatric: cooperative - Neurologic Neurologic: CNII-XII intact, no focal deficits, moves all extremities - Allied Health Allied health notes reviewed: nursing, RT, social work - Constitutional Vitals: Temp Pulse Resp BP Pulse Ox 99.2 F 60 18 124/44 100 12/10/21 16:30 12/10/21 16:45 12/10/21 16:45 12/10/21 16:45 12/10/21 16:45 General appearance: Present: no acute distress, other (Trah and on the vent) HEART Score - HEART Score Troponin: Troponin T 0.045 ng/mL (0.00-0.029) H 11/29/21 20:15 Results - Labs CBC & Chem 7: 12/09/21 04:20 12/10/21 04:33 Labs: Laboratory Last Values WBC 8.5 K/mm3 (4.5-11.0) 12/09/21 04:20 RBC 2.67 M/mm3 (3.65-5.03) L 12/09/21 04:20 Hgb 7.6 gm/dl (10.1-14.3) L 12/09/21 04:20 Hct 22.1 % (30.3-42.9) L 12/09/21 04:20 MCV 83 fl (79-97) 12/09/21 04:20 MCH 28 pg (28-32) 12/09/21 04:20 MCHC 34 % (30-34) 12/09/21 04:20 RDW 20.8 % (13.2-15.2) H 12/09/21 04:20 Plt Count 175 K/mm3 (140-440) 12/09/21 04:20 Add Manual Diff Complete 11/16/21 15:25 Total Counted 100 11/16/21 15:25 Seg Neutrophils % Stave Grader 11/06/21 15:50 Seg Neuts % (Manual) 87.0 % (40.0-70.0) H 11/16/21 15:25 Band Neutrophils % 0 % 11/16/21 15:25 Lymphocytes % (Manual) 8.0 % (13.4-35.0) L 11/16/21 15:25 Reactive Lymphs % (Man) 0 % 11/16/21 15:25 Monocytes % (Manual) 5.0 % (0.0-7.3) 11/16/21 15:25 Eosinophils % (Manual) 0 % (0.0-4.3) 11/16/21 15:25 Basophils % (Manual) 0 % (0.0-1.8) 11/16/21 15:25 Metamyelocytes % 0 % 11/16/21 15:25 Myelocytes % 0 % 11/16/21 15:25 Promyelocytes % 0 % 11/16/21 15:25 Blast Cells % 0 % 11/16/21 15:25 Nucleated RBC % Not Reportable 11/16/21 15:25 Seg Neutrophils # Man 15.0 K/mm3 (1.8-7.7) H 11/16/21 15:25 Band Neutrophils # 0.0 K/mm3 11/16/21 15:25 Lymphocytes # (Manual) 1.4 K/mm3 (1.2-5.4) 11/16/21 15:25 Abs React Lymphs (Man) 0.0 K/mm3 11/16/21 15:25 Monocytes # (Manual) 0.9 K/mm3 (0.0-0.8) H 11/16/21 15:25 Eosinophils # (Manual) 0.0 K/mm3 (0.0-0.4) 11/16/21 15:25 Basophils # (Manual) 0.0 K/mm3 (0.0-0.1) 11/16/21 15:25 Metamyelocytes # 0.0 K/mm3 11/16/21 15:25 Myelocytes # 0.0 K/mm3 11/16/21 15:25 Promyelocytes # 0.0 K/mm3 11/16/21 15:25 Blast Cells # 0.0 K/mm3 11/16/21 15:25 WBC Morphology Not Reportable 11/16/21 15:25 Hypersegmented Neuts Not Reportable 11/16/21 15:25 Hyposegmented Neuts Not Reportable 11/16/21 15:25 Hypogranular Neuts Not Reportable 11/16/21 15:25 Smudge Cells Not Reportable 11/16/21 15:25 Toxic Granulation Not Reportable 11/16/21 15:25 Toxic Vacuolation Not Reportable 11/16/21 15:25 Dohle Bodies Not Reportable 11/16/21 15:25 Pelger-Huet Anomaly Not Reportable 11/16/21 15:25 Irina Rods Not Reportable 11/16/21 15:25 Platelet Estimate Consistent w auto 11/16/21 15:25 Clumped Platelets Rare 11/16/21 15:25 Plt Clumps, EDTA Not Reportable 11/16/21 15:25 Large Platelets Not Reportable 11/16/21 15:25 Giant Platelets Not Reportable 11/16/21 15:25 Platelet Satelliting Not Reportable 11/16/21 15:25 Plt Morphology Comment Not Reportable 11/16/21 15:25 RBC Morphology Not Reportable 11/16/21 15:25 Dimorphic RBCs Not Reportable 11/16/21 15:25 Polychromasia Not Reportable 11/16/21 15:25 Hypochromasia 2+ 11/16/21 15:25 Poikilocytosis Not Reportable 11/16/21 15:25 Anisocytosis 2+ 11/16/21 15:25 Microcytosis Not Reportable 11/16/21 15:25 Macrocytosis Not Reportable 11/16/21 15:25 Spherocytes Not Reportable 11/16/21 15:25 Pappenheimer Bodies Not Reportable 11/16/21 15:25 Sickle Cells Not Reportable 11/16/21 15:25 Target Cells 2+ 11/16/21 15:25 Tear Drop Cells Not Reportable 11/16/21 15:25 Ovalocytes Not Reportable 11/16/21 15:25 Helmet Cells Not Reportable 11/16/21 15:25 Odonnell-Mercer Bodies Not Reportable 11/16/21 15:25 [place] Rings Not Reportable 11/16/21 15:25 Malcom Cells Not Reportable 11/16/21 15:25 Bite Cells Not Reportable 11/16/21 15:25 Crenated Cell Not Reportable 11/16/21 15:25 Elliptocytes Not Reportable 11/16/21 15:25 Acanthocytes (Spur) Not Reportable 11/16/21 15:25 Rouleaux Not Reportable 11/16/21 15:25 Hemoglobin C Crystals Not Reportable 11/16/21 15:25 Schistocytes Not Reportable 11/16/21 15:25 Malaria parasites Not Reportable 11/16/21 15:25 Godfrey Bodies Not Reportable 11/16/21 15:25 Hem Pathologist Commnt No 11/16/21 15:25 PT 16.9 Sec. (12.2-14.9) H 11/26/21 05:00 INR 1.24 (0.87-1.13) H 11/26/21 05:00 APTT 29.2 Sec. (24.2-36.6) 11/26/21 05:00 D-Dimer 2655.00 ng/mlDDU (0-234) H 11/11/21 04:28 ABG pH 7.449 pH Units (7.350-7.450) 11/21/21 16:00 ABG pCO2 32.1 mm Hg 11/21/21 16:00 ABG pO2 114.2 mm Hg (80.0-90.0) H 11/21/21 16:00 ABG HCO3 21.8 mmol/L (20.0-26.0) 11/21/21 16:00 ABG O2 Saturation 98.3 % (95.0-99.0) 11/21/21 16:00 ABG O2 Content 12.5 (0.0-44) 11/21/21 16:00 ABG Base Excess -1.7 mmol/L (-2.0-3.0) 11/21/21 16:00 ABG Hemoglobin 9.1 gm/dl (12.0-16.0) L 11/21/21 16:00 ABG Carboxyhemoglobin 1.9 % (0.0-5.0) 11/21/21 16:00 ABG Methemoglobin 0.5 % (0.0-1.5) 11/21/21 16:00 Oxyhemoglobin 96.0 % (95.0-99.0) 11/21/21 16:00 FiO2 30 % 11/21/21 16:00 Sodium 136 mmol/L (137-145) L 12/10/21 04:33 Potassium 4.0 mmol/L (3.6-5.0) 12/10/21 04:33 Chloride 99.5 mmol/L (98-107) 12/10/21 04:33 Carbon Dioxide 26 mmol/L (22-30) 12/10/21 04:33 Anion Gap 15 mmol/L 12/10/21 04:33 BUN 27 mg/dL (7-17) H 12/10/21 04:33 Creatinine 0.6 mg/dL (0.6-1.2) 12/10/21 04:33 Estimated GFR > 60 ml/min 12/10/21 04:33 BUN/Creatinine Ratio 45 % 12/10/21 04:33 Glucose 117 mg/dL (65-100) H 12/10/21 04:33 POC Glucose 137 mg/dL (70-105) H 12/10/21 16:02 Lactic Acid 3.70 mmol/L (0.7-2.0) H* 11/03/21 22:32 Calcium 8.2 mg/dL (8.4-10.2) L 12/10/21 04:33 Phosphorus 3.50 mg/dL (2.5-4.5) 12/08/21 04:00 Magnesium 2.20 mg/dL (1.7-2.3) 12/08/21 04:00 Ferritin 52.6 ng/mL (10.0-200.0) 11/05/21 06:11 Total Bilirubin 0.50 mg/dL (0.1-1.2) 11/17/21 05:56 Direct Bilirubin < 0.2 mg/dL (0-0.2) 11/11/21 04:28 Indirect Bilirubin 0.1 mg/dL 11/11/21 04:28 AST 36 units/L (5-40) 11/17/21 05:56 ALT 47 units/L (7-56) 11/17/21 05:56 Alkaline Phosphatase 107 units/L (35-129) 11/17/21 05:56 Ammonia 42.0 umol/L (25-60) 11/10/21 14:08 Lactate Dehydrogenase 187 units/L (91-180) H 11/05/21 06:11 Troponin T 0.045 ng/mL (0.00-0.029) H 11/29/21 20:15 C-Reactive Protein 22.20 mg/dL (0.00-1.30) H 11/05/21 06:11 NT-Pro-B Natriuret Pep 7895 pg/mL (0-900) H 11/03/21 22:32 Total Protein 5.1 g/dL (6.3-8.2) L 11/17/21 05:56 Albumin 2.2 g/dL (3.9-5) L 11/17/21 05:56 Albumin/Globulin Ratio 0.8 % 11/17/21 05:56 Triglycerides 59 mg/dL (2-149) 11/29/21 20:15 Cholesterol 74 mg/dL (50-199) 11/29/21 20:15 LDL Cholesterol Direct 25 mg/dL (50-130) L 11/29/21 20:15 HDL Cholesterol 41 mg/dL (40-59) 11/29/21 20:15 Cholesterol/HDL Ratio 1.80 % 11/29/21 20:15 Vitamin B12 1823 pg/mL (211-911) H 11/10/21 14:08 TSH 1.510 mlU/mL (0.270-4.200) 11/10/21 14:08 Urine Color Yellow (Yellow) 11/11/21 09:00 Urine Turbidity Slightly-cloudy (Clear) 11/11/21 09:00 Urine pH 5.0 (5.0-7.0) 11/11/21 09:00 Ur Specific [place] 1.009 (1.003-1.030) 11/11/21 09:00 Urine Protein <15 mg/dl mg/dL (Negative) 11/11/21 09:00 Urine Glucose (UA) Neg mg/dL (Negative) 11/11/21 09:00 Urine Ketones Neg mg/dL (Negative) 11/11/21 09:00 Urine Blood Mod (Negative) 11/11/21 09:00 Urine Nitrite Neg (Negative) 11/11/21 09:00 Urine Bilirubin Neg (Negative) 11/11/21 09:00 Urine Urobilinogen < 2.0 mg/dL (<2.0) 11/11/21 09:00 Ur Leukocyte Esterase Neg (Negative) 11/11/21 09:00 Urine WBC (Auto) < 1.0 /HPF (0.0-6.0) 11/11/21 09:00 Urine RBC (Auto) < 1.0 /HPF (0.0-6.0) 11/11/21 09:00 Coronavirus (PCR) Negative (Negative) 11/10/21 08:30 Blood Type O POSITIVE 11/18/21 10:45 Antibody Screen Negative 11/18/21 10:45 Crossmatch See Detail 11/18/21 10:45 Gamble/IV: Voiding Method Indwelling Catheter Active Medications - Current Medications Current Medications: Generic Name Dose Route Start Last Admin Trade Name Freq PRN Reason Stop Dose Admin Hydrocodone Bitart/Acetaminophen 1 each 11/21/21 10:00 12/10/21 13:29 Hydrocodone/Acetaminophen 10-325mg Tab FEEDTUBE 1 each TID YOSSI Administration Alprazolam 0.5 mg 12/09/21 08:00 12/10/21 08:55 Alprazolam 0.5 Mg Tab PO 0.5 mg Q8H YOSSI Administration Lipase/Protease/Amylase 1 each 11/08/21 11:09 Lipase 10,500/Protease 25,000/Amylase 43,750 (Units) Dr Lema FEEDTUBE PRN PRN For Clogged Feeding Tube Buspirone HCl 7.5 mg 11/17/21 22:00 12/10/21 09:05 Buspirone 5 Mg Tab PO 7.5 mg BID YOSSI Administration Dextrose 0 ml 11/10/21 10:52 11/21/21 16:27 Dextrose 10% *Hypoglycemia IV 50 ml PRN PRN Administration Hypoglycemia Docusate Sodium 100 mg 12/04/21 11:00 12/10/21 09:04 Docusate Sodium 100 Mg/10 Ml Oral Liqd PO 100 mg BID YOSSI Administration Fentanyl 1 applic 11/17/21 13:00 12/08/21 09:54 Fentanyl 25 Mcg/Hr Patch 72hr TD 1 applic Q3D YOSSI Administration Furosemide 20 mg 12/09/21 10:00 12/10/21 09:04 Furosemide 20 Mg Tab PO 20 mg QDAY YOSSI Administration Gabapentin 100 mg 12/01/21 10:00 12/10/21 09:05 Gabapentin 100 Mg Cap PO 100 mg QDAY YOSSI Administration Hydromorphone HCl 0.5 mg 12/08/21 20:06 12/09/21 21:21 Hydromorphone 1 Mg/1 Ml Inj IV 0.5 mg Q3H PRN Administration Pain, Moderate (4-6) Hydrophilic Ointment 1 applic 11/06/21 04:02 Lip Therapy Vaseline TP Q2HR PRN Dry Lips Lansoprazole 30 mg 11/24/21 22:00 12/10/21 09:04 Lansoprazole 30 Mg Solutab FEEDTUBE 30 mg BID YOSSI Administration Levothyroxine Sodium 125 mcg 11/05/21 07:00 12/10/21 06:39 Levothyroxine 125 Mcg Tab PO 125 mcg DAILY@0600 YOSSI Administration Melatonin 5 mg 12/05/21 22:00 12/09/21 21:19 Melatonin 5 Mg Tab PO 5 mg QHS YOSSI Administration Metoprolol Tartrate 6.25 mg 12/08/21 22:52 12/10/21 09:05 Metoprolol Tartrate 25 Mg Tab PO 6.25 mg BID YOSSI Administration Midodrine 10 mg 12/09/21 08:00 12/10/21 12:14 Midodrine 5 Mg Tab PO 10 mg TID@0800,1200,1600 YOSSI Administration Multi-Ingred Cream/Lotion/Oil/Oint 1 applic 11/06/21 04:02 Mineral Oil/Petrolatum, White Ophth Oint 3.5 Gm OU Q4HR PRN Dry Eye(s) Nitroglycerin 0.4 mg 11/30/21 11:36 Nitroglycerin 0.4 Mg Tab Subl SL .Q5MIN PRN Chest Pain Ondansetron HCl 4 mg 12/05/21 10:00 12/08/21 05:17 Ondansetron 4 Mg/2 Ml Inj IV 4 mg Q8H PRN Administration Nausea And Vomiting Polyethylene Glycol 17 gm 12/02/21 10:00 12/10/21 09:04 Polyethylene Glycol 3350 17 Gm Powder PO 17 gm QDAY YOSSI Administration Pravastatin Sodium 20 mg 11/18/21 22:00 12/09/21 21:18 Pravastatin 20 Mg Tab PO 20 mg QHS YOSSI Administration Quetiapine Fumarate 50 mg 12/01/21 22:00 12/09/21 21:19 Quetiapine 25 Mg Tab PO 50 mg QHS YOSSI Administration Senna 17.6 mg 11/08/21 22:00 12/10/21 09:04 Sennosides Oral Liqd 8.8 Mg/5 Ml Oral Liqd PO 17.6 mg Q12HR YOSSI Administration Simple Syrup 15 ml 11/08/21 11:09 Simple Syrup 15 Ml FEEDTUBE PRN PRN Hypoglycemia Simple Syrup 30 ml 11/08/21 11:09 Simple Syrup 15 Ml FEEDTUBE PRN PRN Hypoglycemia Sodium Bicarbonate 325 mg 11/08/21 11:09 Sodium Bicarbonate 325 Mg Tab FEEDTUBE PRN PRN For Clogged Feeding Tube Sodium Chloride 10 ml 11/04/21 10:00 12/10/21 09:06 Sodium Chloride 0.9% 10 Ml Flush Syringe IV 10 ml BID YOSSI Administration Sodium Chloride 10 ml 11/04/21 02:03 Sodium Chloride 0.9% 10 Ml Flush Syringe IV PRN PRN LINE FLUSH Sodium Chloride 10 ml 11/10/21 09:57 11/17/21 20:47 Sodium Chloride 0.9% 50 Ml Ivpb IV 10 ml PRN PRN Administration FLUSH Sucralfate 1 gm 11/18/21 16:30 12/10/21 10:56 Sucralfate 1 Gm/10 Ml Oral Liqd PO 1 gm ACHS YOSSI Administration Trazodone HCl 50 mg 12/04/21 22:00 12/09/21 21:19 Trazodone 50 Mg Tab PO 50 mg QHS YOSSI Administration Nutrition/Malnutrition Assess - Dietary Evaluation Nutrition/Malnutrition Findings: Nutrition Notes Start: 11/04/21 17:16 Freq: Status: Active Protocol: Document 12/08/21 10:17 YOVANI (Rec: 12/08/21 10:27 [facility] [id number]) Nutrition Notes Initial or Follow up Reassessment Current Diagnosis Diabetes,Hypertension,Heart Failure,Respiratory Failure Other Pertinent Diagnosis Bilat pneu, acute GIB Current Diet TF - Vital AF 1.2 at 40ml/hr Labs/Tests Na 135 BUN 23 H/H 7.7/23.5 Pertinent Medications Colace, Miralax Height 5 ft Weight 62.4 kg [place] Body Weight (kg) 45.45 BMI 26.9 Weight Status Appropriate Subjective/Other Information Trach and PEG placed on 11/26. Pt remains on vent support. BM x 1 on yesterday; previous report of no BM x 5 days on . Pt tolerating TF. Percent of energy/protein needs met: 95% energy 96% pro Burn Absent Trauma Absent #1 Nutrition Diagnosis Inadequate oral intake Diagnosis Progress(for reassessment Continues documentation) Is patient on ventilator? Yes Is Patient Ambulatory and/or Out of Bed No REE-([facility] [place]-confined to bed) [phone] Calculation Used for Recommendations [facility] Additional Notes Pro needs 1.2-2g/k-125g/ day Fluid needs 1ml/kcal Nutrition Intervention Nutrition Support: Continue Vital AF 1.2 at 40ml/ hr. Provide 65ml water flush q4h. Kcal 1,152 Protein (gm) 72 Carbohydrates (gm) 106 Fat (gm) 52 Fluid (mL) 779 Fiber (gm) 5 Goal #1 TF tolerance Goal #2 TF to meet at least 75% energy and pro needs Follow-Up By: 12/15/21 Additional Comments F/U: stable TF, vent status, wt
[2021-12-10] MEDS: MELATONIN 5 MG TAB PO SCH (21:37)
[2021-12-10] MEDS: PRAVASTATIN 20 MG TAB PO SCH (21:37)
[2021-12-10] MEDS: QUEtiapine 25 MG TAB PO SCH (21:37)
[2021-12-10] MEDS: traZODone 50 MG TAB PO SCH (21:38)
[2021-12-11] MEDS: ALPRAZolam 0.5 MG TAB PO SCH ×2 (01:30→08:49)
[2021-12-11 05:10] LABS: Hematocrit 21.4 % (30.3-42.9); Mean Corpuscular HGB Conc 33 % (30-34); Mean Corpuscular Volume 83 fl (79-97); Platelet Count 225 K/mm3 (140-440); Red Blood Count 2.57 M/mm3 (3.65-5.03)
[2021-12-11 05:11] LABS: Red Cell Distribution Width 21.1 % (13.2-15.2)
[2021-12-11 05:40] LABS: Blood Urea Nitrogen 27 mg/dL (7-17); Calcium 7.6 mg/dL (8.4-10.2); Hemolysis Index 0
[2021-12-11 05:41] LABS: BUN/Creatinine Ratio 45
[2021-12-11] MEDS: LEVOTHYROXINE 125 MCG TAB PO SCH (05:58)
[2021-12-11] MEDS: SUCRALFATE 1 GM/10 ML ORAL LIQD PO SCH ×5 (07:30→22:35)
[2021-12-11] MEDS: MIDODRINE 5 MG TAB PO SCH ×3 (08:49→16:00)
[2021-12-11] MEDS: HYDROcodone/ACETAMINOPHEN 10-325MG TAB FEEDTUBE SCH ×3 (08:49→20:20)
[2021-12-11] MEDS: GABAPENTIN 100 MG CAP PO SCH (09:08)
[2021-12-11] MEDS: DOCUSATE SODIUM 100 MG/10 ML ORAL LIQD PO SCH ×2 (09:08→22:36)
[2021-12-11] MEDS: LANSOPRAZOLE 30 MG SOLUTAB FEEDTUBE SCH ×2 (09:08→22:36)
[2021-12-11] MEDS: SENNOSIDES ORAL LIQD 8.8 MG/5 ML ORAL LIQD PO SCH ×2 (09:08→22:36)
[2021-12-11] MEDS: METOPROLOL TARTRATE 25 MG TAB PO SCH ×2 (09:08→22:36)
[2021-12-11] MEDS: fentaNYL 25 MCG/HR PATCH 72HR TD SCH (09:09)
[2021-12-11] MEDS: POLYETHYLENE GLYCOL 3350 17 GM POWDER PO SCH (09:09)
[2021-12-11] MEDS: busPIRone 5 MG TAB PO SCH ×2 (09:09→22:35)
[2021-12-11] MEDS: FUROSEMIDE 20 MG TAB PO SCH (09:09)
--- NOTE | 2021-12-11 12:17 | Procedure Note ---
Date of procedure: 12/11/21 Pre-op diagnosis: right pleural effusion Post-op diagnosis: same Procedure: US thoracentesis Findings: moderate right pleural effusion Anesthesia: local Surgeon: ALEE BETANCOURT Estimated blood loss: none Pathology: none Specimen disposition: discarded Condition: stable Disposition: floor
--- NOTE | 2021-12-11 12:22 | Ultrasound Report ---
ULTRASOUND-GUIDED THORACENTESIS HISTORY: pleural effusion. COMPARISON: Ultrasound chest performed 12/08/2021 PROCEDURE: The risks (including but not limited to bleeding, infection, and pneumothorax) and benefi ts were explained to the patient and informed consent was obtained. A time out procedure was perform ed. Ultrasound was used to evaluate the right pleural effusion and locate the optimal site for needle ent ry. Once the skin was marked, the procedure site was prepped and draped in the usual sterile fashion and lidocaine was used for local anesthesia. A 5-Georgian thoracentesis catheter was placed. The pat ient was monitored closely throughout the procedure, and a total of 1000 mL of clear yellow fluid was aspirated. No labs were ordered The patient tolerated the procedure well with no complications. A post-procedure chest x-ray was imm ediately ordered. IMPRESSION: Successful thoracentesis as above with a total of 1000 mL of clear yellow fluid aspirated . Signer Name: Job López Jr, MD Signed: 12/11/2021 12:18 PM Workstation Name: [id number]
--- NOTE | 2021-12-11 13:45 | Progress Note ---
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 (Called insurance company for peer discussion and her LTAC transfer was denied due to "hemodynamic instability" despite my explaining that she has only intermittently required 2 nicole's/min of Levophed and also that she can be easily managed at the LTAC which also treats critically ill patients) - reduce xanax to 0.25mg tid - LTAC evaluation ongoing - no new issues otherwise, continue care as below; - continue gentle diuresis - continue Midodrine - continue daily SAT and SBT assessment as tolerated - prn Levophed for target MAP > 65 mmHg - continue to wean supplemental oxygen for target O2 sat's > 90% acutely - VAP bundle addressed - continue lung protective strategies - continue bronchodilators with routine trach care and pulmonary hygiene per RT - wean per pulmonary driven protocols otherwise - avoid nephrotoxins, renally dose all medications - continue accuchecks with glycemic control per SSI (While critically ill target blood glucose of 140-180 mg/dL; avoid hypoglycemia) - sedation prn for target RASS 0 to -1 - antibiotics per ID recommendations - continue to avoid benzodiazepine's, reduce the possibility of delirium - prn analgesia per CPOT score - Maintenance of sleep-wake cycle, avoid delirium - continue enteral nutritional support at goal rate as tolerated - G.I. & VTE prophylaxis - PT/OT/ROM exercises - continue mobility protocols for pressure ulcer prophylaxis - Monitor hemodynamics closely - continue other care per attending / other consultants - discharge planning ongoing concurrently COVID SPECIFIC INTERVENTIONS - COVID-19 PCR negative .... Re-evaluate in am & prn CONDITION: CRITICAL PROGNOSIS: GUARDED CODE STATUS: FULL CODE The high probability of a clinically significant, sudden or life-threatening deterioration of the [respiratory, cardiovascular & neurologic] system(s) req uired my full and direct attention, intervention and personal management. The aggregate critical care time was [35] minutes without overlap. Time includes spent on; [x] Data Review and interpretation [x] Patient assessment and monitoring of vital signs [x] Documentation [x] Medication orders and management Subjective Date of service: 12/11/21 Principal diagnosis: Septic shock; AHRF; Anemia; Pneumonia; L. pleural effusion; HFrEF; Pulm HTN Interval history: Patient is seen today for: Septic shock; Acute hypoxemic respiratory failure; Anemia; Bilateral pneumonia; Left pleural effusion; HFrEF 30-35%; Pulm HTN RVSP 49 Seen and examined at bedside; 24hour events reviewed; nursing and respiratory care staff consulted; no adverse overnight events reported to me; resting in bed; s/p thoracentesis and 1 liter pulled; on SBT via PSV but with p-supp at 18; no new issues otherwise and remains off Levophed Objective Vital Signs - 12hr 12/11/21 12/11/21 12/11/21 01:45 02:01 02:15 Temperature Pulse Rate 72 72 74 Pulse Rate [ From Monitor] Respiratory 14 11 L 14 Rate Blood Pressure 109/68 109/68 109/68 O2 Sat by Pulse 95 95 96 Oximetry 12/11/21 12/11/21 12/11/21 02:30 02:45 03:00 Temperature Pulse Rate 73 72 73 Pulse Rate [ From Monitor] Respiratory 17 14 13 Rate Blood Pressure 116/45 116/45 121/50 O2 Sat by Pulse 95 95 96 Oximetry 12/11/21 12/11/21 12/11/21 03:15 03:30 03:45 Temperature Pulse Rate 72 74 72 Pulse Rate [ From Monitor] Respiratory 14 16 14 Rate Blood Pressure 121/50 124/51 124/51 O2 Sat by Pulse 96 96 95 Oximetry 12/11/21 12/11/21 12/11/21 04:00 04:15 04:30 Temperature 98.6 F Pulse Rate 71 71 72 Pulse Rate [ 62 From Monitor] Respiratory 14 14 14 Rate Blood Pressure 116/46 116/46 118/47 O2 Sat by Pulse 94 95 96 Oximetry 12/11/21 12/11/21 12/11/21 04:40 04:45 05:00 Temperature Pulse Rate 80 73 75 Pulse Rate [ From Monitor] Respiratory 0 L 14 14 Rate Blood Pressure 125/52 118/47 125/52 O2 Sat by Pulse 96 96 97 Oximetry 12/11/21 12/11/21 12/11/21 05:15 05:30 05:45 Temperature Pulse Rate 77 74 74 Pulse Rate [ From Monitor] Respiratory 14 14 14 Rate Blood Pressure 125/52 116/48 116/48 O2 Sat by Pulse 97 95 94 Oximetry 12/11/21 12/11/21 12/11/21 06:00 06:15 06:31 Temperature Pulse Rate 80 81 84 Pulse Rate [ From Monitor] Respiratory 14 14 13 Rate Blood Pressure 132/51 132/51 145/26 O2 Sat by Pulse 94 93 96 Oximetry 12/11/21 12/11/21 12/11/21 06:45 07:00 07:15 Temperature Pulse Rate 80 82 81 Pulse Rate [ From Monitor] Respiratory 14 12 14 Rate Blood Pressure 145/26 133/63 133/63 O2 Sat by Pulse 95 94 95 Oximetry 12/11/21 12/11/21 12/11/21 07:17 07:30 07:45 Temperature 99.3 F Pulse Rate 79 78 Pulse Rate [ From Monitor] Respiratory 14 14 Rate Blood Pressure 124/55 124/55 O2 Sat by Pulse 94 94 Oximetry 12/11/21 12/11/21 12/11/21 08:00 08:15 08:30 Temperature 99.3 F Pulse Rate 77 77 78 Pulse Rate [ 62 From Monitor] Respiratory 14 14 30 H Rate Blood Pressure 118/52 118/52 124/54 O2 Sat by Pulse 2 L 92 92 Oximetry 12/11/21 12/11/21 12/11/21 08:45 08:58 09:01 Temperature Pulse Rate 104 H 105 H 102 H Pulse Rate [ From Monitor] Respiratory 21 13 Rate Blood Pressure 124/54 125/54 124/54 O2 Sat by Pulse 100 74 L 97 Oximetry 12/11/21 12/11/21 12/11/21 09:08 09:15 09:30 Temperature Pulse Rate 102 H 93 H 85 Pulse Rate [ From Monitor] Respiratory 14 14 Rate Blood Pressure 152/75 103/44 O2 Sat by Pulse 95 94 Oximetry 12/11/21 12/11/21 12/11/21 09:45 10:00 10:15 Temperature Pulse Rate 82 78 75 Pulse Rate [ From Monitor] Respiratory 14 14 14 Rate Blood Pressure 103/44 91/37 91/37 O2 Sat by Pulse 93 92 94 Oximetry 12/11/21 12/11/21 12/11/21 10:30 10:45 11:00 Temperature Pulse Rate 74 72 71 Pulse Rate [ From Monitor] Respiratory 14 14 14 Rate Blood Pressure 98/38 98/38 98/41 O2 Sat by Pulse 94 95 96 Oximetry 12/11/21 12/11/21 12/11/21 11:15 11:30 11:45 Temperature Pulse Rate 74 68 65 Pulse Rate [ From Monitor] Respiratory 16 14 12 Rate Blood Pressure 98/41 106/33 106/33 O2 Sat by Pulse 96 96 96 Oximetry 12/11/21 12/11/21 12/11/21 12:00 12:15 12:30 Temperature 98.5 F Pulse Rate 65 65 63 Pulse Rate [ 62 From Monitor] Respiratory 14 14 14 Rate Blood Pressure 93/32 93/32 98/35 O2 Sat by Pulse 96 96 97 Oximetry 12/11/21 12/11/21 12/11/21 12:45 13:00 13:15 Temperature Pulse Rate 72 68 76 Pulse Rate [ From Monitor] Respiratory 12 29 H 23 Rate Blood Pressure 98/35 113/40 113/40 O2 Sat by Pulse 90 97 95 Oximetry Constitutional: alert, appears uncomfortable (restless really), other (trach to MVS, frail elderly woman with mildly increased respiratory effort at rest) Eyes: non-icteric ENT: oropharynx moist, other (+ Midline tracheostomy) Neck: supple, no lymphadenopathy, no JVD Effort: mildly labored Ascultation: Bilateral: diminished breath sounds, rhonchi Percussion: Bilateral: not dull Cardiovascular: regular rate and rhythm, other (S1,S2) Gastrointestinal: normoactive bowel sounds, soft, non-tender, non-distended (protuberant) Integumentary: normal Extremities: no cyanosis, pink and warm, pulses normal, edema (upper etremities) Neurologic: normal mental status, non-focal exam (grossly), pupils equal and round, motor strength normal and Psychiatric: mood appropriate, affect normal CBC and BMP: 12/12/21 04:30 12/12/21 04:30 ABG, PT/INR, D-dimer: ABG ABG pH 7.449 pH Units (7.350-7.450) 11/21/21 16:00 ABG pCO2 32.1 mm Hg 11/21/21 16:00 ABG pO2 114.2 mm Hg (80.0-90.0) H 11/21/21 16:00 ABG O2 Saturation 98.3 % (95.0-99.0) 11/21/21 16:00 PT/INR, D-dimer PT 16.9 Sec. (12.2-14.9) H 11/26/21 05:00 INR 1.24 (0.87-1.13) H 11/26/21 05:00 D-Dimer 2655.00 ng/mlDDU (0-234) H 11/11/21 04:28 Abnormal lab findings: Abnormal Labs 11/03/21 11/03/21 11/03/21 22:32 22:32 22:32 WBC 29.3 H RBC 2.93 L Hgb 6.1 L Hct 21.9 L MCV 75 L MCH 21 L MCHC 28 L RDW 19.7 H Plt Count Seg Neuts % (Manual) 97.0 H Lymphocytes % (Manual) 3.0 L Seg Neutrophils # Man 28.4 H Lymphocytes # (Manual) 0.9 L Monocytes # (Manual) PT 18.6 H INR 1.40 H D-Dimer ABG pH ABG pO2 ABG HCO3 ABG O2 Saturation ABG Base Excess ABG Hemoglobin Oxyhemoglobin Sodium Potassium Chloride Carbon Dioxide 20 L BUN 33 H Creatinine Glucose 119 H POC Glucose Lactic Acid Calcium 8.3 L Phosphorus Magnesium AST ALT Alkaline Phosphatase Lactate Dehydrogenase Troponin T 0.035 H C-Reactive Protein NT-Pro-B Natriuret Pep Total Protein Albumin LDL Cholesterol Direct 34 L Vitamin B12 Crossmatch 11/03/21 11/03/21 11/03/21 22:32 22:32 23:57 WBC RBC Hgb Hct MCV MCH MCHC RDW Plt Count Seg Neuts % (Manual) Lymphocytes % (Manual) Seg Neutrophils # Man Lymphocytes # (Manual) Monocytes # (Manual) PT INR D-Dimer ABG pH ABG pO2 ABG HCO3 ABG O2 Saturation ABG Base Excess ABG Hemoglobin Oxyhemoglobin Sodium Potassium Chloride Carbon Dioxide BUN Creatinine Glucose POC Glucose Lactic Acid 3.70 H* Calcium Phosphorus Magnesium AST ALT Alkaline Phosphatase 139 H Lactate Dehydrogenase Troponin T C-Reactive Protein NT-Pro-B Natriuret Pep 7895 H Total Protein Albumin 3.5 L LDL Cholesterol Direct Vitamin B12 Crossmatch See Detail 11/04/21 11/04/21 11/05/21 00:59 13:58 00:51 WBC 27.9 H RBC 3.28 L Hgb 7.3 L Hct 25.5 L MCV 78 L MCH 22 L MCHC 29 L RDW 19.1 H Plt Count Seg Neuts % (Manual) 96.0 H Lymphocytes % (Manual) 2.0 L Seg Neutrophils # Man 26.8 H Lymphocytes # (Manual) 0.6 L Monocytes # (Manual) PT INR D-Dimer ABG pH ABG pO2 ABG HCO3 ABG O2 Saturation ABG Base Excess ABG Hemoglobin Oxyhemoglobin Sodium Potassium Chloride Carbon Dioxide BUN Creatinine Glucose POC Glucose Lactic Acid Calcium Phosphorus Magnesium AST ALT Alkaline Phosphatase Lactate Dehydrogenase Troponin T 0.051 H D 0.032 H D C-Reactive Protein NT-Pro-B Natriuret Pep Total Protein Albumin LDL Cholesterol Direct Vitamin B12 Crossmatch 11/05/21 11/05/21 11/05/21 06:11 06:11 06:11 WBC 31.8 H RBC 3.57 L Hgb 8.0 L Hct 27.7 L MCV 78 L MCH 22 L MCHC 29 L RDW 19.2 H Plt Count Seg Neuts % (Manual) 91.0 H Lymphocytes % (Manual) 4.5 L Seg Neutrophils # Man 28.9 H Lymphocytes # (Manual) Monocytes # (Manual) 1.1 H PT INR D-Dimer 1494.53 H ABG pH ABG pO2 ABG HCO3 ABG O2 Saturation ABG Base Excess ABG Hemoglobin Oxyhemoglobin Sodium Potassium Chloride Carbon Dioxide 19 L BUN 42 H Creatinine Glucose 115 H POC Glucose Lactic Acid Calcium Phosphorus Magnesium AST 43 H ALT Alkaline Phosphatase Lactate Dehydrogenase 187 H Troponin T C-Reactive Protein 22.20 H NT-Pro-B Natriuret Pep Total Protein 6.0 L Albumin 3.2 L LDL Cholesterol Direct Vitamin B12 Crossmatch 11/05/21 11/05/21 11/06/21 06:11 12:15 00:30 WBC RBC Hgb Hct MCV MCH MCHC RDW Plt Count Seg Neuts % (Manual) Lymphocytes % (Manual) Seg Neutrophils # Man Lymphocytes # (Manual) Monocytes # (Manual) PT INR D-Dimer ABG pH ABG pO2 ABG HCO3 ABG O2 Saturation ABG Base Excess ABG Hemoglobin Oxyhemoglobin Sodium Potassium Chloride Carbon Dioxide BUN Creatinine Glucose POC Glucose 113 H 69 L Lactic Acid Calcium Phosphorus Magnesium AST ALT Alkaline Phosphatase Lactate Dehydrogenase Troponin T 0.033 H C-Reactive Protein NT-Pro-B Natriuret Pep Total Protein Albumin LDL Cholesterol Direct Vitamin B12 Crossmatch 11/06/21 11/06/21 11/06/21 05:50 15:50 15:50 WBC 25.5 H RBC 3.62 L Hgb 8.0 L Hct 27.5 L MCV 76 L MCH 22 L MCHC 29 L RDW 19.6 H Plt Count Seg Neuts % (Manual) 92.0 H Lymphocytes % (Manual) 5.0 L Seg Neutrophils # Man 23.5 H Lymphocytes # (Manual) Monocytes # (Manual) PT INR D-Dimer ABG pH 7.305 L ABG pO2 ABG HCO3 15.8 L ABG O2 Saturation ABG Base Excess -9.6 L ABG Hemoglobin 8.6 L Oxyhemoglobin 94.6 L Sodium Potassium Chloride 113.9 H Carbon Dioxide 17 L BUN 56 H Creatinine Glucose 114 H POC Glucose Lactic Acid Calcium 7.9 L Phosphorus Magnesium AST 1410 H ALT 934 H Alkaline Phosphatase 142 H Lactate Dehydrogenase Troponin T C-Reactive Protein NT-Pro-B Natriuret Pep Total Protein 5.0 L Albumin 2.6 L LDL Cholesterol Direct Vitamin B12 Crossmatch 11/07/21 11/07/21 11/07/21 03:30 04:50 08:07 WBC RBC Hgb Hct MCV MCH MCHC RDW Plt Count Seg Neuts % (Manual) Lymphocytes % (Manual) Seg Neutrophils # Man Lymphocytes # (Manual) Monocytes # (Manual) PT INR D-Dimer ABG pH ABG pO2 296.9 H ABG HCO3 18.1 L ABG O2 Saturation 99.5 H ABG Base Excess -5.9 L ABG Hemoglobin 7.6 L Oxyhemoglobin Sodium Potassium Chloride Carbon Dioxide BUN Creatinine Glucose POC Glucose 106 H 108 H Lactic Acid Calcium Phosphorus Magnesium AST ALT Alkaline Phosphatase Lactate Dehydrogenase Troponin T C-Reactive Protein NT-Pro-B Natriuret Pep Total Protein Albumin LDL Cholesterol Direct Vitamin B12 Crossmatch 11/08/21 11/08/21 11/08/21 03:10 18:05 23:43 WBC RBC Hgb Hct MCV MCH MCHC RDW Plt Count Seg Neuts % (Manual) Lymphocytes % (Manual) Seg Neutrophils # Man Lymphocytes # (Manual) Monocytes # (Manual) PT INR D-Dimer ABG pH ABG pO2 127.4 H ABG HCO3 ABG O2 Saturation ABG Base Excess -3.4 L ABG Hemoglobin 7.4 L Oxyhemoglobin Sodium Potassium Chloride Carbon Dioxide BUN Creatinine Glucose POC Glucose 113 H 141 H Lactic Acid Calcium Phosphorus Magnesium AST ALT Alkaline Phosphatase Lactate Dehydrogenase Troponin T C-Reactive Protein NT-Pro-B Natriuret Pep Total Protein Albumin LDL Cholesterol Direct Vitamin B12 Crossmatch 11/08/21 11/08/21 11/09/21 Unknown Unknown 02:00 WBC 14.5 H RBC 3.35 L Hgb 7.5 L 8.1 L Hct 25.4 L 27.6 L MCV 76 L 76 L MCH 23 L 22 L MCHC RDW 19.9 H 19.9 H Plt Count Seg Neuts % (Manual) Lymphocytes % (Manual) Seg Neutrophils # Man Lymphocytes # (Manual) Monocytes # (Manual) PT INR D-Dimer ABG pH ABG pO2 ABG HCO3 ABG O2 Saturation ABG Base Excess ABG Hemoglobin Oxyhemoglobin Sodium 154 H D Potassium 3.3 L Chloride 120.7 H Carbon Dioxide 20 L BUN 38 H Creatinine Glucose POC Glucose Lactic Acid Calcium 8.3 L Phosphorus Magnesium AST ALT Alkaline Phosphatase Lactate Dehydrogenase Troponin T C-Reactive Protein NT-Pro-B Natriuret Pep Total Protein Albumin LDL Cholesterol Direct Vitamin B12 Crossmatch 11/09/21 11/09/21 11/09/21 02:00 02:31 05:12 WBC RBC Hgb Hct MCV MCH MCHC RDW Plt Count Seg Neuts % (Manual) Lymphocytes % (Manual) Seg Neutrophils # Man Lymphocytes # (Manual) Monocytes # (Manual) PT INR D-Dimer ABG pH 7.479 H ABG pO2 121.3 H ABG HCO3 ABG O2 Saturation ABG Base Excess ABG Hemoglobin 7.3 L Oxyhemoglobin Sodium Potassium Chloride 112.5 H Carbon Dioxide BUN 33 H Creatinine Glucose 161 H POC Glucose 135 H Lactic Acid Calcium Phosphorus Magnesium AST 251 H ALT 481 H Alkaline Phosphatase Lactate Dehydrogenase Troponin T C-Reactive Protein NT-Pro-B Natriuret Pep Total Protein 5.0 L Albumin 2.8 L LDL Cholesterol Direct Vitamin B12 Crossmatch 11/09/21 11/09/21 11/09/21 11:33 16:32 23:28 WBC RBC Hgb Hct MCV MCH MCHC RDW Plt Count Seg Neuts % (Manual) Lymphocytes % (Manual) Seg Neutrophils # Man Lymphocytes # (Manual) Monocytes # (Manual) PT INR D-Dimer ABG pH ABG pO2 ABG HCO3 ABG O2 Saturation ABG Base Excess ABG Hemoglobin Oxyhemoglobin Sodium Potassium Chloride Carbon Dioxide BUN Creatinine Glucose POC Glucose 132 H 133 H 143 H Lactic Acid Calcium Phosphorus Magnesium AST ALT Alkaline Phosphatase Lactate Dehydrogenase Troponin T C-Reactive Protein NT-Pro-B Natriuret Pep Total Protein Albumin LDL Cholesterol Direct Vitamin B12 Crossmatch 11/10/21 11/10/21 11/10/21 04:00 04:00 05:35 WBC 16.0 H RBC 3.61 L Hgb 8.0 L Hct 27.1 L MCV 75 L MCH 22 L MCHC RDW 20.4 H Plt Count Seg Neuts % (Manual) Lymphocytes % (Manual) Seg Neutrophils # Man Lymphocytes # (Manual) Monocytes # (Manual) PT INR D-Dimer ABG pH ABG pO2 ABG HCO3 ABG O2 Saturation ABG Base Excess ABG Hemoglobin Oxyhemoglobin Sodium 149 H Potassium Chloride 114.1 H Carbon Dioxide BUN 31 H Creatinine Glucose 148 H POC Glucose 132 H Lactic Acid Calcium 8.2 L Phosphorus Magnesium AST ALT Alkaline Phosphatase Lactate Dehydrogenase Troponin T C-Reactive Protein NT-Pro-B Natriuret Pep Total Protein Albumin LDL Cholesterol Direct Vitamin B12 Crossmatch 11/10/21 11/10/21 11/10/21 11:31 14:08 15:35 WBC RBC Hgb Hct MCV MCH MCHC RDW Plt Count Seg Neuts % (Manual) Lymphocytes % (Manual) Seg Neutrophils # Man Lymphocytes # (Manual) Monocytes # (Manual) PT INR D-Dimer ABG pH ABG pO2 126.6 H ABG HCO3 ABG O2 Saturation ABG Base Excess ABG Hemoglobin 7.4 L Oxyhemoglobin Sodium Potassium Chloride Carbon Dioxide BUN Creatinine Glucose POC Glucose 147 H Lactic Acid Calcium Phosphorus Magnesium AST ALT Alkaline Phosphatase Lactate Dehydrogenase Troponin T C-Reactive Protein NT-Pro-B Natriuret Pep Total Protein Albumin LDL Cholesterol Direct Vitamin B12 1823 H Crossmatch 11/10/21 11/11/21 11/11/21 17:53 00:55 04:28 WBC RBC Hgb Hct MCV MCH MCHC RDW Plt Count Seg Neuts % (Manual) Lymphocytes % (Manual) Seg Neutrophils # Man Lymphocytes # (Manual) Monocytes # (Manual) PT INR D-Dimer ABG pH ABG pO2 ABG HCO3 ABG O2 Saturation ABG Base Excess ABG Hemoglobin Oxyhemoglobin Sodium 149 H Potassium Chloride 112.2 H Carbon Dioxide BUN 34 H Creatinine Glucose 148 H POC Glucose 140 H 145 H Lactic Acid Calcium 7.9 L Phosphorus Magnesium AST 53 H ALT 203 H Alkaline Phosphatase Lactate Dehydrogenase Troponin T C-Reactive Protein NT-Pro-B Natriuret Pep Total Protein 4.9 L Albumin 2.6 L LDL Cholesterol Direct Vitamin B12 Crossmatch 11/11/21 11/11/21 11/11/21 04:28 04:28 05:28 WBC 20.9 H RBC 3.47 L Hgb 7.5 L Hct 26.0 L MCV 75 L MCH 22 L MCHC 29 L RDW 21.6 H Plt Count 132 L Seg Neuts % (Manual) Lymphocytes % (Manual) Seg Neutrophils # Man Lymphocytes # (Manual) Monocytes # (Manual) PT INR D-Dimer 2655.00 H ABG pH ABG pO2 ABG HCO3 ABG O2 Saturation ABG Base Excess ABG Hemoglobin Oxyhemoglobin Sodium Potassium Chloride Carbon Dioxide BUN Creatinine Glucose POC Glucose 154 H Lactic Acid Calcium Phosphorus Magnesium AST ALT Alkaline Phosphatase Lactate Dehydrogenase Troponin T C-Reactive Protein NT-Pro-B Natriuret Pep Total Protein Albumin LDL Cholesterol Direct Vitamin B12 Crossmatch 11/11/21 11/11/21 11/12/21 12:38 18:13 00:14 WBC RBC Hgb Hct MCV MCH MCHC RDW Plt Count Seg Neuts % (Manual) Lymphocytes % (Manual) Seg Neutrophils # Man Lymphocytes # (Manual) Monocytes # (Manual) PT INR D-Dimer ABG pH ABG pO2 ABG HCO3 ABG O2 Saturation ABG Base Excess ABG Hemoglobin Oxyhemoglobin Sodium Potassium Chloride Carbon Dioxide BUN Creatinine Glucose POC Glucose 137 H 108 H 137 H Lactic Acid Calcium Phosphorus Magnesium AST ALT Alkaline Phosphatase Lactate Dehydrogenase Troponin T C-Reactive Protein NT-Pro-B Natriuret Pep Total Protein Albumin LDL Cholesterol Direct Vitamin B12 Crossmatch 11/12/21 11/12/21 11/12/21 05:40 06:24 11:12 WBC RBC Hgb Hct MCV MCH MCHC RDW Plt Count Seg Neuts % (Manual) Lymphocytes % (Manual) Seg Neutrophils # Man Lymphocytes # (Manual) Monocytes # (Manual) PT INR D-Dimer ABG pH 7.586 H ABG pO2 150.6 H ABG HCO3 27.2 H ABG O2 Saturation 99.1 H ABG Base Excess 5.2 H ABG Hemoglobin 7.5 L Oxyhemoglobin Sodium Potassium Chloride Carbon Dioxide BUN Creatinine Glucose POC Glucose 132 H 140 H Lactic Acid Calcium Phosphorus Magnesium AST ALT Alkaline Phosphatase Lactate Dehydrogenase Troponin T C-Reactive Protein NT-Pro-B Natriuret Pep Total Protein Albumin LDL Cholesterol Direct Vitamin B12 Crossmatch 11/12/21 11/12/21 11/12/21 14:50 14:50 17:13 WBC 19.8 H RBC 3.27 L Hgb 7.1 L Hct 24.5 L MCV 75 L MCH 22 L MCHC 29 L RDW 22.3 H Plt Count Seg Neuts % (Manual) Lymphocytes % (Manual) Seg Neutrophils # Man Lymphocytes # (Manual) Monocytes # (Manual) PT INR D-Dimer ABG pH ABG pO2 ABG HCO3 ABG O2 Saturation ABG Base Excess ABG Hemoglobin Oxyhemoglobin Sodium 150 H Potassium 3.3 L Chloride 112.0 H Carbon Dioxide BUN 40 H Creatinine Glucose 151 H POC Glucose 121 H Lactic Acid Calcium 7.4 L Phosphorus 1.70 L Magnesium 1.40 L AST ALT Alkaline Phosphatase Lactate Dehydrogenase Troponin T C-Reactive Protein NT-Pro-B Natriuret Pep Total Protein Albumin LDL Cholesterol Direct Vitamin B12 Crossmatch 11/12/21 11/13/21 11/13/21 23:19 05:34 06:30 WBC RBC Hgb Hct MCV MCH MCHC RDW Plt Count Seg Neuts % (Manual) Lymphocytes % (Manual) Seg Neutrophils # Man Lymphocytes # (Manual) Monocytes # (Manual) PT INR D-Dimer ABG pH ABG pO2 ABG HCO3 ABG O2 Saturation ABG Base Excess ABG Hemoglobin Oxyhemoglobin Sodium 149 H Potassium Chloride 60.0 L Carbon Dioxide BUN 40 H Creatinine Glucose 146 H POC Glucose 113 H 132 H Lactic Acid Calcium 7.3 L Phosphorus Magnesium 2.40 H AST ALT 72 H Alkaline Phosphatase Lactate Dehydrogenase Troponin T C-Reactive Protein NT-Pro-B Natriuret Pep Total Protein 5.2 L Albumin 2.2 L LDL Cholesterol Direct Vitamin B12 Crossmatch 11/13/21 11/13/21 11/13/21 06:30 08:30 11:19 WBC 21.2 H RBC 3.12 L Hgb 6.8 L Hct 23.2 L MCV 74 L MCH 22 L MCHC 29 L RDW 22.2 H Plt Count 135 L Seg Neuts % (Manual) Lymphocytes % (Manual) Seg Neutrophils # Man Lymphocytes # (Manual) Monocytes # (Manual) PT INR D-Dimer ABG pH ABG pO2 ABG HCO3 ABG O2 Saturation ABG Base Excess ABG Hemoglobin Oxyhemoglobin Sodium Potassium Chloride Carbon Dioxide BUN Creatinine Glucose POC Glucose 136 H Lactic Acid Calcium Phosphorus Magnesium AST ALT Alkaline Phosphatase Lactate Dehydrogenase Troponin T C-Reactive Protein NT-Pro-B Natriuret Pep Total Protein Albumin LDL Cholesterol Direct Vitamin B12 Crossmatch See Detail 11/13/21 11/14/21 11/14/21 18:21 00:01 04:46 WBC 20.0 H RBC 3.41 L Hgb 7.9 L Hct 26.8 L MCV MCH 23 L MCHC 29 L RDW 24.0 H Plt Count Seg Neuts % (Manual) Lymphocytes % (Manual) Seg Neutrophils # Man Lymphocytes # (Manual) Monocytes # (Manual) PT INR D-Dimer ABG pH ABG pO2 ABG HCO3 ABG O2 Saturation ABG Base Excess ABG Hemoglobin Oxyhemoglobin Sodium Potassium Chloride Carbon Dioxide BUN Creatinine Glucose POC Glucose 149 H 141 H Lactic Acid Calcium Phosphorus Magnesium AST ALT Alkaline Phosphatase Lactate Dehydrogenase Troponin T C-Reactive Protein NT-Pro-B Natriuret Pep Total Protein Albumin LDL Cholesterol Direct Vitamin B12 Crossmatch 11/14/21 11/14/21 11/14/21 04:46 05:10 11:10 WBC RBC Hgb Hct MCV MCH MCHC RDW Plt Count Seg Neuts % (Manual) Lymphocytes % (Manual) Seg Neutrophils # Man Lymphocytes # (Manual) Monocytes # (Manual) PT INR D-Dimer ABG pH ABG pO2 ABG HCO3 ABG O2 Saturation ABG Base Excess ABG Hemoglobin Oxyhemoglobin Sodium 148 H Potassium Chloride 113.1 H Carbon Dioxide BUN 43 H Creatinine Glucose 140 H POC Glucose 132 H 133 H Lactic Acid Calcium 7.5 L Phosphorus Magnesium AST ALT Alkaline Phosphatase Lactate Dehydrogenase Troponin T C-Reactive Protein NT-Pro-B Natriuret Pep Total Protein Albumin LDL Cholesterol Direct Vitamin B12 Crossmatch 11/14/21 11/14/21 11/14/21 16:14 17:48 23:23 WBC RBC Hgb Hct MCV MCH MCHC RDW Plt Count Seg Neuts % (Manual) Lymphocytes % (Manual) Seg Neutrophils # Man Lymphocytes # (Manual) Monocytes # (Manual) PT INR D-Dimer ABG pH ABG pO2 ABG HCO3 28.0 H ABG O2 Saturation ABG Base Excess 3.1 H ABG Hemoglobin 5.8 L Oxyhemoglobin 94.8 L Sodium Potassium Chloride Carbon Dioxide BUN Creatinine Glucose POC Glucose 130 H 136 H Lactic Acid Calcium Phosphorus Magnesium AST ALT Alkaline Phosphatase Lactate Dehydrogenase Troponin T C-Reactive Protein NT-Pro-B Natriuret Pep Total Protein Albumin LDL Cholesterol Direct Vitamin B12 Crossmatch 11/15/21 11/15/21 11/15/21 05:20 05:50 05:50 WBC 19.9 H RBC 3.50 L Hgb 8.2 L Hct 27.9 L MCV MCH 23 L MCHC 29 L RDW 24.9 H Plt Count Seg Neuts % (Manual) Lymphocytes % (Manual) Seg Neutrophils # Man Lymphocytes # (Manual) Monocytes # (Manual) PT INR D-Dimer ABG pH ABG pO2 ABG HCO3 ABG O2 Saturation ABG Base Excess ABG Hemoglobin Oxyhemoglobin Sodium 149 H Potassium Chloride 112.0 H Carbon Dioxide BUN 48 H Creatinine Glucose 152 H POC Glucose 137 H Lactic Acid Calcium 7.9 L Phosphorus Magnesium AST ALT Alkaline Phosphatase Lactate Dehydrogenase Troponin T C-Reactive Protein NT-Pro-B Natriuret Pep Total Protein Albumin LDL Cholesterol Direct Vitamin B12 Crossmatch 11/15/21 11/15/21 11/15/21 12:12 17:07 23:24 WBC RBC Hgb Hct MCV MCH MCHC RDW Plt Count Seg Neuts % (Manual) Lymphocytes % (Manual) Seg Neutrophils # Man Lymphocytes # (Manual) Monocytes # (Manual) PT INR D-Dimer ABG pH ABG pO2 ABG HCO3 ABG O2 Saturation ABG Base Excess ABG Hemoglobin Oxyhemoglobin Sodium Potassium Chloride Carbon Dioxide BUN Creatinine Glucose POC Glucose 114 H 135 H 123 H Lactic Acid Calcium Phosphorus Magnesium AST ALT Alkaline Phosphatase Lactate Dehydrogenase Troponin T C-Reactive Protein NT-Pro-B Natriuret Pep Total Protein Albumin LDL Cholesterol Direct Vitamin B12 Crossmatch 11/16/21 11/16/21 11/16/21 05:21 10:00 10:00 WBC 21.7 H RBC 2.57 L Hgb 6.0 L Hct 20.2 L D MCV MCH 24 L MCHC RDW 26.3 H Plt Count Seg Neuts % (Manual) Lymphocytes % (Manual) Seg Neutrophils # Man Lymphocytes # (Manual) Monocytes # (Manual) PT INR D-Dimer ABG pH ABG pO2 ABG HCO3 ABG O2 Saturation ABG Base Excess ABG Hemoglobin Oxyhemoglobin Sodium 153 H Potassium Chloride 114.9 H Carbon Dioxide BUN 74 H Creatinine Glucose 155 H POC Glucose 127 H Lactic Acid Calcium 8.1 L Phosphorus Magnesium AST ALT Alkaline Phosphatase Lactate Dehydrogenase Troponin T C-Reactive Protein NT-Pro-B Natriuret Pep Total Protein Albumin LDL Cholesterol Direct Vitamin B12 Crossmatch 11/16/21 11/16/21 11/16/21 11:34 14:00 15:25 WBC 17.2 H RBC 2.08 L Hgb 4.7 L* Hct 16.2 L* MCV 78 L MCH 23 L MCHC 29 L RDW 26.0 H Plt Count Seg Neuts % (Manual) 87.0 H Lymphocytes % (Manual) 8.0 L Seg Neutrophils # Man 15.0 H Lymphocytes # (Manual) Monocytes # (Manual) 0.9 H PT INR D-Dimer ABG pH ABG pO2 ABG HCO3 ABG O2 Saturation ABG Base Excess ABG Hemoglobin Oxyhemoglobin Sodium Potassium Chloride Carbon Dioxide BUN Creatinine Glucose POC Glucose 131 H Lactic Acid Calcium Phosphorus Magnesium AST ALT Alkaline Phosphatase Lactate Dehydrogenase Troponin T C-Reactive Protein NT-Pro-B Natriuret Pep Total Protein Albumin LDL Cholesterol Direct Vitamin B12 Crossmatch See Detail 11/16/21 11/16/21 11/16/21 15:25 17:21 22:43 WBC RBC Hgb 8.6 L D Hct 27.7 L D MCV MCH MCHC RDW Plt Count Seg Neuts % (Manual) Lymphocytes % (Manual) Seg Neutrophils # Man Lymphocytes # (Manual) Monocytes # (Manual) PT INR D-Dimer ABG pH ABG pO2 ABG HCO3 ABG O2 Saturation ABG Base Excess ABG Hemoglobin Oxyhemoglobin Sodium 148 H Potassium Chloride 113.2 H Carbon Dioxide BUN 84 H Creatinine Glucose 164 H POC Glucose 124 H Lactic Acid Calcium 7.6 L Phosphorus Magnesium AST ALT Alkaline Phosphatase Lactate Dehydrogenase Troponin T C-Reactive Protein NT-Pro-B Natriuret Pep Total Protein Albumin LDL Cholesterol Direct Vitamin B12 Crossmatch 11/16/21 11/17/21 11/17/21 23:07 05:33 05:56 WBC 25.1 H RBC 3.47 L Hgb 8.7 L Hct 28.5 L MCV MCH 25 L MCHC RDW 22.3 H Plt Count Seg Neuts % (Manual) Lymphocytes % (Manual) Seg Neutrophils # Man Lymphocytes # (Manual) Monocytes # (Manual) PT INR D-Dimer ABG pH ABG pO2 ABG HCO3 ABG O2 Saturation ABG Base Excess ABG Hemoglobin Oxyhemoglobin Sodium Potassium Chloride Carbon Dioxide BUN Creatinine Glucose POC Glucose 128 H 133 H Lactic Acid Calcium Phosphorus Magnesium AST ALT Alkaline Phosphatase Lactate Dehydrogenase Troponin T C-Reactive Protein NT-Pro-B Natriuret Pep Total Protein Albumin LDL Cholesterol Direct Vitamin B12 Crossmatch 11/17/21 11/17/21 11/17/21 05:56 11:00 11:55 WBC RBC Hgb 8.3 L Hct 26.9 L MCV MCH MCHC RDW Plt Count Seg Neuts % (Manual) Lymphocytes % (Manual) Seg Neutrophils # Man Lymphocytes # (Manual) Monocytes # (Manual) PT INR D-Dimer ABG pH ABG pO2 ABG HCO3 ABG O2 Saturation ABG Base Excess ABG Hemoglobin Oxyhemoglobin Sodium 151 H Potassium Chloride 113.6 H Carbon Dioxide BUN 85 H Creatinine Glucose 132 H POC Glucose 121 H Lactic Acid Calcium 7.8 L Phosphorus Magnesium AST ALT Alkaline Phosphatase Lactate Dehydrogenase Troponin T C-Reactive Protein NT-Pro-B Natriuret Pep Total Protein 5.1 L Albumin 2.2 L LDL Cholesterol Direct Vitamin B12 Crossmatch 11/17/21 11/17/21 11/18/21 18:04 18:55 00:26 WBC RBC Hgb 7.5 L 7.1 L Hct 24.8 L 23.6 L MCV MCH MCHC RDW Plt Count Seg Neuts % (Manual) Lymphocytes % (Manual) Seg Neutrophils # Man Lymphocytes # (Manual) Monocytes # (Manual) PT INR D-Dimer ABG pH ABG pO2 ABG HCO3 ABG O2 Saturation ABG Base Excess ABG Hemoglobin Oxyhemoglobin Sodium Potassium Chloride Carbon Dioxide BUN Creatinine Glucose POC Glucose 144 H Lactic Acid Calcium Phosphorus Magnesium AST ALT Alkaline Phosphatase Lactate Dehydrogenase Troponin T C-Reactive Protein NT-Pro-B Natriuret Pep Total Protein Albumin LDL Cholesterol Direct Vitamin B12 Crossmatch 11/18/21 11/18/21 11/18/21 00:43 05:10 05:10 WBC 12.5 H RBC 2.39 L Hgb 6.1 L Hct 20.2 L MCV MCH 25 L MCHC RDW 23.2 H Plt Count Seg Neuts % (Manual) Lymphocytes % (Manual) Seg Neutrophils # Man Lymphocytes # (Manual) Monocytes # (Manual) PT INR D-Dimer ABG pH ABG pO2 ABG HCO3 ABG O2 Saturation ABG Base Excess ABG Hemoglobin Oxyhemoglobin Sodium 131 L D Potassium 2.9 L* D Chloride 97.8 L Carbon Dioxide BUN 58 H Creatinine Glucose 665 H* POC Glucose 139 H Lactic Acid Calcium 7.0 L Phosphorus 2.20 L D Magnesium 1.50 L AST ALT Alkaline Phosphatase Lactate Dehydrogenase Troponin T C-Reactive Protein NT-Pro-B Natriuret Pep Total Protein Albumin LDL Cholesterol Direct Vitamin B12 Crossmatch 11/18/21 11/18/21 11/18/21 05:23 07:10 10:45 WBC RBC Hgb Hct MCV MCH MCHC RDW Plt Count Seg Neuts % (Manual) Lymphocytes % (Manual) Seg Neutrophils # Man Lymphocytes # (Manual) Monocytes # (Manual) PT INR D-Dimer ABG pH ABG pO2 ABG HCO3 ABG O2 Saturation ABG Base Excess ABG Hemoglobin Oxyhemoglobin Sodium 148 H D Potassium 3.1 L Chloride 111.9 H Carbon Dioxide BUN 63 H Creatinine Glucose 141 H POC Glucose 124 H Lactic Acid Calcium 8.1 L D Phosphorus Magnesium AST ALT Alkaline Phosphatase Lactate Dehydrogenase Troponin T C-Reactive Protein NT-Pro-B Natriuret Pep Total Protein Albumin LDL Cholesterol Direct Vitamin B12 Crossmatch See Detail 11/18/21 11/19/21 11/19/21 11:57 00:19 04:55 WBC RBC 3.35 L Hgb 9.0 L 8.9 L Hct 28.3 L D 28.1 L MCV MCH 27 L MCHC RDW 20.3 H Plt Count Seg Neuts % (Manual) Lymphocytes % (Manual) Seg Neutrophils # Man Lymphocytes # (Manual) Monocytes # (Manual) PT INR D-Dimer ABG pH ABG pO2 ABG HCO3 ABG O2 Saturation ABG Base Excess ABG Hemoglobin Oxyhemoglobin Sodium Potassium Chloride Carbon Dioxide BUN Creatinine Glucose POC Glucose 119 H Lactic Acid Calcium Phosphorus Magnesium AST ALT Alkaline Phosphatase Lactate Dehydrogenase Troponin T C-Reactive Protein NT-Pro-B Natriuret Pep Total Protein Albumin LDL Cholesterol Direct Vitamin B12 Crossmatch 11/19/21 11/19/21 11/20/21 04:55 05:42 00:55 WBC RBC Hgb 9.0 L Hct 28.6 L MCV MCH MCHC RDW Plt Count Seg Neuts % (Manual) Lymphocytes % (Manual) Seg Neutrophils # Man Lymphocytes # (Manual) Monocytes # (Manual) PT INR D-Dimer ABG pH ABG pO2 ABG HCO3 ABG O2 Saturation ABG Base Excess ABG Hemoglobin Oxyhemoglobin Sodium Potassium 3.5 L Chloride 108.6 H Carbon Dioxide BUN 47 H Creatinine Glucose 207 H POC Glucose 63 L Lactic Acid Calcium 7.1 L Phosphorus Magnesium AST ALT Alkaline Phosphatase Lactate Dehydrogenase Troponin T C-Reactive Protein NT-Pro-B Natriuret Pep Total Protein Albumin LDL Cholesterol Direct Vitamin B12 Crossmatch 11/20/21 11/20/21 11/20/21 05:40 05:40 Unknown WBC RBC 3.40 L Hgb 9.1 L Hct 28.8 L MCV MCH 27 L MCHC RDW 20.7 H Plt Count Seg Neuts % (Manual) Lymphocytes % (Manual) Seg Neutrophils # Man Lymphocytes # (Manual) Monocytes # (Manual) PT INR D-Dimer ABG pH ABG pO2 ABG HCO3 ABG O2 Saturation ABG Base Excess -2.7 L ABG Hemoglobin 9.5 L Oxyhemoglobin 94.3 L Sodium Potassium 3.5 L Chloride 108.9 H Carbon Dioxide BUN 37 H Creatinine Glucose 117 H POC Glucose Lactic Acid Calcium 7.5 L Phosphorus Magnesium AST ALT Alkaline Phosphatase Lactate Dehydrogenase Troponin T C-Reactive Protein NT-Pro-B Natriuret Pep Total Protein Albumin LDL Cholesterol Direct Vitamin B12 Crossmatch 11/21/21 11/21/21 11/21/21 04:30 04:30 16:00 WBC RBC 3.25 L Hgb 8.6 L Hct 28.1 L MCV MCH 26 L MCHC RDW 20.7 H Plt Count Seg Neuts % (Manual) Lymphocytes % (Manual) Seg Neutrophils # Man Lymphocytes # (Manual) Monocytes # (Manual) PT INR D-Dimer ABG pH ABG pO2 114.2 H ABG HCO3 ABG O2 Saturation ABG Base Excess ABG Hemoglobin 9.1 L Oxyhemoglobin Sodium 134 L Potassium Chloride Carbon Dioxide 20 L BUN 34 H Creatinine Glucose POC Glucose Lactic Acid Calcium 7.1 L Phosphorus Magnesium AST ALT Alkaline Phosphatase Lactate Dehydrogenase Troponin T C-Reactive Protein NT-Pro-B Natriuret Pep Total Protein Albumin LDL Cholesterol Direct Vitamin B12 Crossmatch 11/22/21 11/22/21 11/22/21 07:07 07:07 23:54 WBC RBC 3.30 L Hgb 9.0 L Hct 28.5 L MCV MCH 27 L MCHC RDW 21.0 H Plt Count Seg Neuts % (Manual) Lymphocytes % (Manual) Seg Neutrophils # Man Lymphocytes # (Manual) Monocytes # (Manual) PT INR D-Dimer ABG pH ABG pO2 ABG HCO3 ABG O2 Saturation ABG Base Excess ABG Hemoglobin Oxyhemoglobin Sodium Potassium Chloride Carbon Dioxide BUN 32 H Creatinine Glucose 106 H POC Glucose 110 H Lactic Acid Calcium 7.5 L Phosphorus Magnesium AST ALT Alkaline Phosphatase Lactate Dehydrogenase Troponin T C-Reactive Protein NT-Pro-B Natriuret Pep Total Protein Albumin LDL Cholesterol Direct Vitamin B12 Crossmatch 11/23/21 11/23/21 11/23/21 04:38 04:38 06:01 WBC RBC 3.23 L Hgb 8.8 L Hct 28.0 L MCV MCH 27 L MCHC RDW 21.3 H Plt Count Seg Neuts % (Manual) Lymphocytes % (Manual) Seg Neutrophils # Man Lymphocytes # (Manual) Monocytes # (Manual) PT INR D-Dimer ABG pH ABG pO2 ABG HCO3 ABG O2 Saturation ABG Base Excess ABG Hemoglobin Oxyhemoglobin Sodium 136 L Potassium Chloride Carbon Dioxide 20 L BUN 32 H Creatinine Glucose 109 H POC Glucose 115 H Lactic Acid Calcium 7.7 L Phosphorus Magnesium AST ALT Alkaline Phosphatase Lactate Dehydrogenase Troponin T C-Reactive Protein NT-Pro-B Natriuret Pep Total Protein Albumin LDL Cholesterol Direct Vitamin B12 Crossmatch 11/23/21 11/24/21 11/24/21 11:40 00:03 04:13 WBC RBC 3.18 L Hgb 8.5 L Hct 27.5 L MCV MCH 27 L MCHC RDW 21.6 H Plt Count Seg Neuts % (Manual) Lymphocytes % (Manual) Seg Neutrophils # Man Lymphocytes # (Manual) Monocytes # (Manual) PT INR D-Dimer ABG pH ABG pO2 ABG HCO3 ABG O2 Saturation ABG Base Excess ABG Hemoglobin Oxyhemoglobin Sodium Potassium Chloride Carbon Dioxide BUN Creatinine Glucose POC Glucose 117 H 111 H Lactic Acid Calcium Phosphorus Magnesium AST ALT Alkaline Phosphatase Lactate Dehydrogenase Troponin T C-Reactive Protein NT-Pro-B Natriuret Pep Total Protein Albumin LDL Cholesterol Direct Vitamin B12 Crossmatch 11/24/21 11/24/21 11/24/21 04:13 05:30 11:10 WBC RBC Hgb Hct MCV MCH MCHC RDW Plt Count Seg Neuts % (Manual) Lymphocytes % (Manual) Seg Neutrophils # Man Lymphocytes # (Manual) Monocytes # (Manual) PT INR D-Dimer ABG pH ABG pO2 ABG HCO3 ABG O2 Saturation ABG Base Excess ABG Hemoglobin Oxyhemoglobin Sodium Potassium Chloride Carbon Dioxide BUN 31 H Creatinine Glucose 101 H POC Glucose 115 H 107 H Lactic Acid Calcium 7.7 L Phosphorus Magnesium AST ALT Alkaline Phosphatase Lactate Dehydrogenase Troponin T C-Reactive Protein NT-Pro-B Natriuret Pep Total Protein Albumin LDL Cholesterol Direct Vitamin B12 Crossmatch 11/24/21 11/24/21 11/25/21 16:34 17:57 05:12 WBC RBC 3.11 L Hgb 8.2 L Hct 26.6 L MCV MCH 26 L MCHC RDW 21.3 H Plt Count Seg Neuts % (Manual) Lymphocytes % (Manual) Seg Neutrophils # Man Lymphocytes # (Manual) Monocytes # (Manual) PT INR D-Dimer ABG pH ABG pO2 ABG HCO3 ABG O2 Saturation ABG Base Excess ABG Hemoglobin Oxyhemoglobin Sodium Potassium Chloride Carbon Dioxide BUN Creatinine Glucose POC Glucose 115 H 110 H Lactic Acid Calcium Phosphorus Magnesium AST ALT Alkaline Phosphatase Lactate Dehydrogenase Troponin T C-Reactive Protein NT-Pro-B Natriuret Pep Total Protein Albumin LDL Cholesterol Direct Vitamin B12 Crossmatch 11/25/21 11/25/21 11/26/21 05:12 11:20 05:00 WBC RBC 3.30 L Hgb 8.8 L Hct 28.2 L MCV MCH 27 L MCHC RDW 20.7 H Plt Count Seg Neuts % (Manual) Lymphocytes % (Manual) Seg Neutrophils # Man Lymphocytes # (Manual) Monocytes # (Manual) PT INR D-Dimer ABG pH ABG pO2 ABG HCO3 ABG O2 Saturation ABG Base Excess ABG Hemoglobin Oxyhemoglobin Sodium Potassium Chloride Carbon Dioxide BUN 32 H Creatinine Glucose 118 H POC Glucose 118 H Lactic Acid Calcium 8.2 L Phosphorus Magnesium AST ALT Alkaline Phosphatase Lactate Dehydrogenase Troponin T C-Reactive Protein NT-Pro-B Natriuret Pep Total Protein Albumin LDL Cholesterol Direct Vitamin B12 Crossmatch 11/26/21 11/26/21 11/26/21 05:00 05:00 05:44 WBC RBC Hgb Hct MCV MCH MCHC RDW Plt Count Seg Neuts % (Manual) Lymphocytes % (Manual) Seg Neutrophils # Man Lymphocytes # (Manual) Monocytes # (Manual) PT 16.9 H INR 1.24 H D-Dimer ABG pH ABG pO2 ABG HCO3 ABG O2 Saturation ABG Base Excess ABG Hemoglobin Oxyhemoglobin Sodium Potassium Chloride Carbon Dioxide BUN 31 H Creatinine Glucose 104 H POC Glucose 110 H Lactic Acid Calcium 7.9 L Phosphorus Magnesium AST ALT Alkaline Phosphatase Lactate Dehydrogenase Troponin T C-Reactive Protein NT-Pro-B Natriuret Pep Total Protein Albumin LDL Cholesterol Direct Vitamin B12 Crossmatch 11/26/21 11/27/21 11/27/21 23:55 07:40 07:40 WBC RBC 3.18 L Hgb 8.5 L Hct 27.0 L MCV MCH 27 L MCHC RDW 21.2 H Plt Count Seg Neuts % (Manual) Lymphocytes % (Manual) Seg Neutrophils # Man Lymphocytes # (Manual) Monocytes # (Manual) PT INR D-Dimer ABG pH ABG pO2 ABG HCO3 ABG O2 Saturation ABG Base Excess ABG Hemoglobin Oxyhemoglobin Sodium Potassium Chloride Carbon Dioxide BUN 27 H Creatinine Glucose 112 H POC Glucose 63 L Lactic Acid Calcium 7.6 L Phosphorus Magnesium AST ALT Alkaline Phosphatase Lactate Dehydrogenase Troponin T C-Reactive Protein NT-Pro-B Natriuret Pep Total Protein Albumin LDL Cholesterol Direct Vitamin B12 Crossmatch 11/27/21 11/27/21 11/27/21 12:04 13:40 13:40 WBC RBC 3.31 L Hgb 8.7 L Hct 28.0 L MCV MCH 26 L MCHC RDW 20.7 H Plt Count Seg Neuts % (Manual) Lymphocytes % (Manual) Seg Neutrophils # Man Lymphocytes # (Manual) Monocytes # (Manual) PT INR D-Dimer ABG pH ABG pO2 ABG HCO3 ABG O2 Saturation ABG Base Excess ABG Hemoglobin Oxyhemoglobin Sodium 136 L Potassium Chloride Carbon Dioxide BUN 25 H Creatinine Glucose 127 H POC Glucose 109 H Lactic Acid Calcium 7.6 L Phosphorus Magnesium 1.40 L AST ALT Alkaline Phosphatase Lactate Dehydrogenase Troponin T C-Reactive Protein NT-Pro-B Natriuret Pep Total Protein Albumin LDL Cholesterol Direct Vitamin B12 Crossmatch 11/27/21 11/27/21 11/28/21 17:44 23:33 12:20 WBC RBC Hgb Hct MCV MCH MCHC RDW Plt Count Seg Neuts % (Manual) Lymphocytes % (Manual) Seg Neutrophils # Man Lymphocytes # (Manual) Monocytes # (Manual) PT INR D-Dimer ABG pH ABG pO2 ABG HCO3 ABG O2 Saturation ABG Base Excess ABG Hemoglobin Oxyhemoglobin Sodium Potassium Chloride Carbon Dioxide BUN Creatinine Glucose POC Glucose 107 H 108 H 114 H Lactic Acid Calcium Phosphorus Magnesium AST ALT Alkaline Phosphatase Lactate Dehydrogenase Troponin T C-Reactive Protein NT-Pro-B Natriuret Pep Total Protein Albumin LDL Cholesterol Direct Vitamin B12 Crossmatch 11/29/21 11/29/21 11/29/21 00:09 03:20 03:20 WBC RBC 3.05 L Hgb 8.2 L Hct 25.8 L MCV MCH 27 L MCHC RDW 20.9 H Plt Count Seg Neuts % (Manual) Lymphocytes % (Manual) Seg Neutrophils # Man Lymphocytes # (Manual) Monocytes # (Manual) PT INR D-Dimer ABG pH ABG pO2 ABG HCO3 ABG O2 Saturation ABG Base Excess ABG Hemoglobin Oxyhemoglobin Sodium 133 L Potassium Chloride Carbon Dioxide BUN 24 H Creatinine Glucose 137 H POC Glucose 134 H Lactic Acid Calcium 7.4 L Phosphorus Magnesium AST ALT Alkaline Phosphatase Lactate Dehydrogenase Troponin T C-Reactive Protein NT-Pro-B Natriuret Pep Total Protein Albumin LDL Cholesterol Direct Vitamin B12 Crossmatch 11/29/21 11/29/21 11/29/21 05:38 11:39 17:11 WBC RBC Hgb Hct MCV MCH MCHC RDW Plt Count Seg Neuts % (Manual) Lymphocytes % (Manual) Seg Neutrophils # Man Lymphocytes # (Manual) Monocytes # (Manual) PT INR D-Dimer ABG pH ABG pO2 ABG HCO3 ABG O2 Saturation ABG Base Excess ABG Hemoglobin Oxyhemoglobin Sodium Potassium Chloride Carbon Dioxide BUN Creatinine Glucose POC Glucose 117 H 143 H 124 H Lactic Acid Calcium Phosphorus Magnesium AST ALT Alkaline Phosphatase Lactate Dehydrogenase Troponin T C-Reactive Protein NT-Pro-B Natriuret Pep Total Protein Albumin LDL Cholesterol Direct Vitamin B12 Crossmatch 11/29/21 11/30/21 11/30/21 20:15 05:40 05:40 WBC 12.6 H RBC 3.41 L Hgb 9.1 L Hct 28.9 L MCV MCH 27 L MCHC RDW 20.4 H Plt Count Seg Neuts % (Manual) Lymphocytes % (Manual) Seg Neutrophils # Man Lymphocytes # (Manual) Monocytes # (Manual) PT INR D-Dimer ABG pH ABG pO2 ABG HCO3 ABG O2 Saturation ABG Base Excess ABG Hemoglobin Oxyhemoglobin Sodium Potassium Chloride Carbon Dioxide BUN 24 H Creatinine Glucose 131 H POC Glucose Lactic Acid Calcium 7.6 L Phosphorus Magnesium AST ALT Alkaline Phosphatase Lactate Dehydrogenase Troponin T 0.045 H C-Reactive Protein NT-Pro-B Natriuret Pep Total Protein Albumin LDL Cholesterol Direct 25 L Vitamin B12 Crossmatch 11/30/21 11/30/21 12/01/21 11:29 16:51 05:00 WBC RBC 2.97 L Hgb 8.0 L Hct 25.0 L MCV MCH 27 L MCHC RDW 20.8 H Plt Count Seg Neuts % (Manual) Lymphocytes % (Manual) Seg Neutrophils # Man Lymphocytes # (Manual) Monocytes # (Manual) PT INR D-Dimer ABG pH ABG pO2 ABG HCO3 ABG O2 Saturation ABG Base Excess ABG Hemoglobin Oxyhemoglobin Sodium Potassium Chloride Carbon Dioxide BUN Creatinine Glucose POC Glucose 123 H 114 H Lactic Acid Calcium Phosphorus Magnesium AST ALT Alkaline Phosphatase Lactate Dehydrogenase Troponin T C-Reactive Protein NT-Pro-B Natriuret Pep Total Protein Albumin LDL Cholesterol Direct Vitamin B12 Crossmatch 12/01/21 12/01/21 12/01/21 05:00 05:25 11:54 WBC RBC Hgb Hct MCV MCH MCHC RDW Plt Count Seg Neuts % (Manual) Lymphocytes % (Manual) Seg Neutrophils # Man Lymphocytes # (Manual) Monocytes # (Manual) PT INR D-Dimer ABG pH ABG pO2 ABG HCO3 ABG O2 Saturation ABG Base Excess ABG Hemoglobin Oxyhemoglobin Sodium 136 L Potassium Chloride Carbon Dioxide BUN 24 H Creatinine Glucose 117 H POC Glucose 108 H 107 H Lactic Acid Calcium 7.5 L Phosphorus Magnesium 1.60 L AST ALT Alkaline Phosphatase Lactate Dehydrogenase Troponin T C-Reactive Protein NT-Pro-B Natriuret Pep Total Protein Albumin LDL Cholesterol Direct Vitamin B12 Crossmatch 12/01/21 12/02/21 12/02/21 17:40 00:07 04:20 WBC RBC 2.92 L Hgb 7.7 L Hct 24.3 L MCV MCH 26 L MCHC RDW 20.5 H Plt Count Seg Neuts % (Manual) Lymphocytes % (Manual) Seg Neutrophils # Man Lymphocytes # (Manual) Monocytes # (Manual) PT INR D-Dimer ABG pH ABG pO2 ABG HCO3 ABG O2 Saturation ABG Base Excess ABG Hemoglobin Oxyhemoglobin Sodium Potassium Chloride Carbon Dioxide BUN Creatinine Glucose POC Glucose 123 H 110 H Lactic Acid Calcium Phosphorus Magnesium AST ALT Alkaline Phosphatase Lactate Dehydrogenase Troponin T C-Reactive Protein NT-Pro-B Natriuret Pep Total Protein Albumin LDL Cholesterol Direct Vitamin B12 Crossmatch 12/02/21 12/02/21 12/02/21 04:20 11:17 18:20 WBC RBC Hgb Hct MCV MCH MCHC RDW Plt Count Seg Neuts % (Manual) Lymphocytes % (Manual) Seg Neutrophils # Man Lymphocytes # (Manual) Monocytes # (Manual) PT INR D-Dimer ABG pH ABG pO2 ABG HCO3 ABG O2 Saturation ABG Base Excess ABG Hemoglobin Oxyhemoglobin Sodium 135 L Potassium Chloride Carbon Dioxide BUN 26 H Creatinine Glucose 121 H POC Glucose 117 H 113 H Lactic Acid Calcium 7.4 L Phosphorus Magnesium AST ALT Alkaline Phosphatase Lactate Dehydrogenase Troponin T C-Reactive Protein NT-Pro-B Natriuret Pep Total Protein Albumin LDL Cholesterol Direct Vitamin B12 Crossmatch 12/03/21 12/03/21 12/03/21 00:12 04:00 04:00 WBC RBC 2.99 L Hgb 7.8 L Hct 24.6 L MCV MCH 26 L MCHC RDW 20.2 H Plt Count Seg Neuts % (Manual) Lymphocytes % (Manual) Seg Neutrophils # Man Lymphocytes # (Manual) Monocytes # (Manual) PT INR D-Dimer ABG pH ABG pO2 ABG HCO3 ABG O2 Saturation ABG Base Excess ABG Hemoglobin Oxyhemoglobin Sodium 136 L Potassium Chloride Carbon Dioxide BUN 27 H Creatinine Glucose 133 H POC Glucose 121 H Lactic Acid Calcium 7.5 L Phosphorus Magnesium AST ALT Alkaline Phosphatase Lactate Dehydrogenase Troponin T C-Reactive Protein NT-Pro-B Natriuret Pep Total Protein Albumin LDL Cholesterol Direct Vitamin B12 Crossmatch 12/03/21 12/03/21 12/03/21 06:30 11:13 16:00 WBC RBC Hgb Hct MCV MCH MCHC RDW Plt Count Seg Neuts % (Manual) Lymphocytes % (Manual) Seg Neutrophils # Man Lymphocytes # (Manual) Monocytes # (Manual) PT INR D-Dimer ABG pH ABG pO2 ABG HCO3 ABG O2 Saturation ABG Base Excess ABG Hemoglobin Oxyhemoglobin Sodium Potassium Chloride Carbon Dioxide BUN Creatinine Glucose POC Glucose 129 H 125 H 125 H Lactic Acid Calcium Phosphorus Magnesium AST ALT Alkaline Phosphatase Lactate Dehydrogenase Troponin T C-Reactive Protein NT-Pro-B Natriuret Pep Total Protein Albumin LDL Cholesterol Direct Vitamin B12 Crossmatch 12/03/21 12/04/21 12/04/21 23:32 04:00 05:36 WBC RBC Hgb Hct MCV MCH MCHC RDW Plt Count Seg Neuts % (Manual) Lymphocytes % (Manual) Seg Neutrophils # Man Lymphocytes # (Manual) Monocytes # (Manual) PT INR D-Dimer ABG pH ABG pO2 ABG HCO3 ABG O2 Saturation ABG Base Excess ABG Hemoglobin Oxyhemoglobin Sodium Potassium 3.5 L Chloride Carbon Dioxide BUN 26 H Creatinine 0.5 L Glucose 151 H POC Glucose 133 H 142 H Lactic Acid Calcium 8.3 L Phosphorus Magnesium AST ALT Alkaline Phosphatase Lactate Dehydrogenase Troponin T C-Reactive Protein NT-Pro-B Natriuret Pep Total Protein Albumin LDL Cholesterol Direct Vitamin B12 Crossmatch 12/04/21 12/04/21 12/05/21 11:24 15:58 04:36 WBC RBC Hgb Hct MCV MCH MCHC RDW Plt Count Seg Neuts % (Manual) Lymphocytes % (Manual) Seg Neutrophils # Man Lymphocytes # (Manual) Monocytes # (Manual) PT INR D-Dimer ABG pH ABG pO2 ABG HCO3 ABG O2 Saturation ABG Base Excess ABG Hemoglobin Oxyhemoglobin Sodium Potassium Chloride Carbon Dioxide BUN 21 H Creatinine 0.5 L Glucose 119 H POC Glucose 130 H 111 H Lactic Acid Calcium 8.3 L Phosphorus Magnesium AST ALT Alkaline Phosphatase Lactate Dehydrogenase Troponin T C-Reactive Protein NT-Pro-B Natriuret Pep Total Protein Albumin LDL Cholesterol Direct Vitamin B12 Crossmatch 12/05/21 12/05/21 12/05/21 05:15 10:40 11:12 WBC RBC 2.98 L Hgb 8.1 L Hct 24.6 L MCV MCH 27 L MCHC RDW 20.8 H Plt Count Seg Neuts % (Manual) Lymphocytes % (Manual) Seg Neutrophils # Man Lymphocytes # (Manual) Monocytes # (Manual) PT INR D-Dimer ABG pH ABG pO2 ABG HCO3 ABG O2 Saturation ABG Base Excess ABG Hemoglobin Oxyhemoglobin Sodium Potassium Chloride Carbon Dioxide BUN Creatinine Glucose POC Glucose 107 H 110 H Lactic Acid Calcium Phosphorus Magnesium AST ALT Alkaline Phosphatase Lactate Dehydrogenase Troponin T C-Reactive Protein NT-Pro-B Natriuret Pep Total Protein Albumin LDL Cholesterol Direct Vitamin B12 Crossmatch 12/05/21 12/06/21 12/06/21 23:39 04:25 04:25 WBC RBC 2.95 L Hgb 7.9 L Hct 24.7 L MCV MCH 27 L MCHC RDW 20.9 H Plt Count Seg Neuts % (Manual) Lymphocytes % (Manual) Seg Neutrophils # Man Lymphocytes # (Manual) Monocytes # (Manual) PT INR D-Dimer ABG pH ABG pO2 ABG HCO3 ABG O2 Saturation ABG Base Excess ABG Hemoglobin Oxyhemoglobin Sodium Potassium Chloride Carbon Dioxide BUN 22 H Creatinine 0.5 L Glucose 136 H POC Glucose 118 H Lactic Acid Calcium 8.2 L Phosphorus Magnesium AST ALT Alkaline Phosphatase Lactate Dehydrogenase Troponin T C-Reactive Protein NT-Pro-B Natriuret Pep Total Protein Albumin LDL Cholesterol Direct Vitamin B12 Crossmatch 12/06/21 12/06/21 12/07/21 05:28 11:27 04:00 WBC RBC Hgb 7.2 L Hct 21.8 L MCV MCH MCHC RDW Plt Count Seg Neuts % (Manual) Lymphocytes % (Manual) Seg Neutrophils # Man Lymphocytes # (Manual) Monocytes # (Manual) PT INR D-Dimer ABG pH ABG pO2 ABG HCO3 ABG O2 Saturation ABG Base Excess ABG Hemoglobin Oxyhemoglobin Sodium Potassium Chloride Carbon Dioxide BUN Creatinine Glucose POC Glucose 142 H 126 H Lactic Acid Calcium Phosphorus Magnesium AST ALT Alkaline Phosphatase Lactate Dehydrogenase Troponin T C-Reactive Protein NT-Pro-B Natriuret Pep Total Protein Albumin LDL Cholesterol Direct Vitamin B12 Crossmatch 12/07/21 12/07/21 12/07/21 04:00 05:30 11:12 WBC RBC Hgb Hct MCV MCH MCHC RDW Plt Count Seg Neuts % (Manual) Lymphocytes % (Manual) Seg Neutrophils # Man Lymphocytes # (Manual) Monocytes # (Manual) PT INR D-Dimer ABG pH ABG pO2 ABG HCO3 ABG O2 Saturation ABG Base Excess ABG Hemoglobin Oxyhemoglobin Sodium Potassium Chloride Carbon Dioxide BUN 22 H Creatinine Glucose 119 H POC Glucose 121 H 124 H Lactic Acid Calcium 8.0 L Phosphorus Magnesium AST ALT Alkaline Phosphatase Lactate Dehydrogenase Troponin T C-Reactive Protein NT-Pro-B Natriuret Pep Total Protein Albumin LDL Cholesterol Direct Vitamin B12 Crossmatch 12/08/21 12/08/21 12/08/21 04:00 04:00 05:39 WBC RBC 2.81 L Hgb 7.7 L Hct 23.5 L MCV MCH MCHC RDW 21.2 H Plt Count Seg Neuts % (Manual) Lymphocytes % (Manual) Seg Neutrophils # Man Lymphocytes # (Manual) Monocytes # (Manual) PT INR D-Dimer ABG pH ABG pO2 ABG HCO3 ABG O2 Saturation ABG Base Excess ABG Hemoglobin Oxyhemoglobin Sodium 135 L Potassium Chloride Carbon Dioxide BUN 23 H Creatinine Glucose 109 H POC Glucose 112 H Lactic Acid Calcium Phosphorus Magnesium AST ALT Alkaline Phosphatase Lactate Dehydrogenase Troponin T C-Reactive Protein NT-Pro-B Natriuret Pep Total Protein Albumin LDL Cholesterol Direct Vitamin B12 Crossmatch 12/08/21 12/09/21 12/09/21 11:03 04:20 04:20 WBC RBC 2.67 L Hgb 7.6 L Hct 22.1 L MCV MCH MCHC RDW 20.8 H Plt Count Seg Neuts % (Manual) Lymphocytes % (Manual) Seg Neutrophils # Man Lymphocytes # (Manual) Monocytes # (Manual) PT INR D-Dimer ABG pH ABG pO2 ABG HCO3 ABG O2 Saturation ABG Base Excess ABG Hemoglobin Oxyhemoglobin Sodium 135 L Potassium Chloride 97.8 L Carbon Dioxide BUN 26 H Creatinine Glucose 119 H POC Glucose 108 H Lactic Acid Calcium 7.7 L Phosphorus Magnesium AST ALT Alkaline Phosphatase Lactate Dehydrogenase Troponin T C-Reactive Protein NT-Pro-B Natriuret Pep Total Protein Albumin LDL Cholesterol Direct Vitamin B12 Crossmatch 12/09/21 12/10/21 12/10/21 11:26 04:33 11:12 WBC RBC Hgb Hct MCV MCH MCHC RDW Plt Count Seg Neuts % (Manual) Lymphocytes % (Manual) Seg Neutrophils # Man Lymphocytes # (Manual) Monocytes # (Manual) PT INR D-Dimer ABG pH ABG pO2 ABG HCO3 ABG O2 Saturation ABG Base Excess ABG Hemoglobin Oxyhemoglobin Sodium 136 L Potassium Chloride Carbon Dioxide BUN 27 H Creatinine Glucose 117 H POC Glucose 110 H 117 H Lactic Acid Calcium 8.2 L Phosphorus Magnesium AST ALT Alkaline Phosphatase Lactate Dehydrogenase Troponin T C-Reactive Protein NT-Pro-B Natriuret Pep Total Protein Albumin LDL Cholesterol Direct Vitamin B12 Crossmatch 12/10/21 12/10/21 12/11/21 16:02 23:31 04:35 WBC RBC 2.57 L Hgb 7.0 L Hct 21.4 L MCV MCH 27 L MCHC RDW 21.1 H Plt Count Seg Neuts % (Manual) Lymphocytes % (Manual) Seg Neutrophils # Man Lymphocytes # (Manual) Monocytes # (Manual) PT INR D-Dimer ABG pH ABG pO2 ABG HCO3 ABG O2 Saturation ABG Base Excess ABG Hemoglobin Oxyhemoglobin Sodium Potassium Chloride Carbon Dioxide BUN Creatinine Glucose POC Glucose 137 H 111 H Lactic Acid Calcium Phosphorus Magnesium AST ALT Alkaline Phosphatase Lactate Dehydrogenase Troponin T C-Reactive Protein NT-Pro-B Natriuret Pep Total Protein Albumin LDL Cholesterol Direct Vitamin B12 Crossmatch 12/11/21 12/11/21 04:35 12:46 WBC RBC Hgb Hct MCV MCH MCHC RDW Plt Count Seg Neuts % (Manual) Lymphocytes % (Manual) Seg Neutrophils # Man Lymphocytes # (Manual) Monocytes # (Manual) PT INR D-Dimer ABG pH ABG pO2 ABG HCO3 ABG O2 Saturation ABG Base Excess ABG Hemoglobin Oxyhemoglobin Sodium 136 L Potassium Chloride Carbon Dioxide BUN 27 H Creatinine Glucose 112 H POC Glucose 115 H Lactic Acid Calcium 7.6 L Phosphorus Magnesium AST ALT Alkaline Phosphatase Lactate Dehydrogenase Troponin T C-Reactive Protein NT-Pro-B Natriuret Pep Total Protein Albumin LDL Cholesterol Direct Vitamin B12 Crossmatch Chest x-ray: image reviewed (no post procedure PTX) Allied health notes reviewed: nursing
--- NOTE | 2021-12-11 13:46 | XRay Report ---
CHEST 1 VIEW 12/11/2021 12:33 PM INDICATION / CLINICAL INFORMATION: recent thora, right pleural effusion. COMPARISON: 12/08/2021 FINDINGS: SUPPORT DEVICES: Right PICC line tip overlies the distal SVC. Pacer leads are satisfactory in positio n HEART / MEDIASTINUM: No significant abnormality. LUNGS / PLEURA: Diffuse bilateral pulmonary opacities most significant in the left lung and right upp er lung .No pneumothorax. Signer Name: Eduard Hahn MD Signed: 12/11/2021 1:41 PM Workstation Name: [id number]
[2021-12-11] MEDS: ALPRAZolam 0.25 MG TAB PO SCH (16:52)
--- NOTE | 2021-12-11 17:24 | Progress Note ---
Assessment and Plan Assessment and plan: This is a 81-year-old female with known history of diabetes mellitus, hypertension, PPM, and arthritis admitted for sepsis and acute hypoxia respiratory failure 2/2 bilateral pneumonia requiring intubation and ventilatory support Assessment and Plan Neuro : Acute encephalopathy (resolved), agitation/ anxiety -Neurology consulted, appreciate recommendations -CT brain showed no acute events -EEG interpreted as abnormal record due to diffuse slowing noted throughout the recording, suggestive of encephalopathic process and/or drug effect, possibilities of postictal state cannot be totally excluded. Clinical correlation is in order -MRI brain not obtained-> patient has metal in her body -Repeat CT head with no acute findings -Reorientation as needed -Ammonia 42, B12 1823, TSH 1.5 -BuSpar, fentanyl patch, Seroquel, [place], Xanax, gabapentin -reduce xanax dose Cardio: Heart failure with reduced EF, h/o chronic heart block s/p PPM, HTN/CAD s/p PCI (2004), Moderate pulmonary HTN, cardiomyopathy -s/p vasopressor support with levophed -11/04 echocardiogram shows EF 30 to 35%, Moderate pulmonary HTN RVSP 49 -Cardiology consulted, appreciate recommendations -Continue beta-charleen and statin therapy -Started midodrine -Not on aspirin due to allergy -Blood pressure monitoring per protocol -As needed nitroglycerin Resp: Acute hypoxic respiratory failure secondary to bilateral pneumonia, left pleural effusion. Right pneumothorax (resolved) -COVID-19 PCR negative -Intubated on 11/06 with 6.00 ETT at 18 at the lip and changed over bougie on 11/11-7.50 ETT at 20 at the lip -See RT notes for titration -PSV today -Surgery consult for trach -Received trach/PEG on 11/26 -S/p bedside bronchoscopy on 11/11 complicated by pneumothorax -S/p chest tube placement for right pneumothorax and dislodgment by patient on 11/15 -ABG/CXR per CCM -VAP bundle -Right chest wall ultrasound showed pleural effusion s/p chest tube -Review right chest wall ultrasound shows small to mod pleural effusion -Restarted on Lasix -12/11 US thoracentesis removed 1L fluid -SPO2 monitoring -Mucomyst every 8 -Albuterol every 8 GI: S/p GI bleed, duodenal ulcer, transaminitis -GI consulted, appreciate recommendations -Nutrition consult for tube feeding -BR: Jane, MiraLAX -s/p peg 11/26 -H2 charleen -Carafate -24-hour +345 ml -BM 12/07 -Gastric occult positive : Urinary retention, hyponatremia, hypochloremia -Gamble catheter in place -Strict intake and output -Trend BMP ID: Septic shock (POA), bilateral pneumonia, bacteremia -Infectious disease consulted, appreciate recommendations -COVID-19 PCR negative -Presented with fevers, leukocytosis and hypotension -11/04 blood cultures positive with a group B strep bacteremia 12/19 however repeat blood cultures on the with no growth to date -Echo showed no evidence of vegetation -ABX therapy: Ceftriaxone (), vancomycin (11/05, ), clindamycin ), cefepime , ) -Monitor WBC and fever curve -Recultured on 11/11 with NGTD -Bedside bronchoscopy for mucous plug on CXR 11/11 Heme: Acute DVT in the right external iliac vein, common femoral vein, superior aspect of femoral vein, Acute microcytic anemia -Evidenced on bilateral upper lower extremity ultrasound -S/p 5 unit PRBC -Trend CBC -Transfuse for hemoglobin less than 7 -S/p IVC filter Endo: h/o DM and hypothyroidism -Continue home Synthroid -SSI -Accu-Cheks every 6 -Avoid hypoglycemia The high probability of a clinically significant, sudden or life threatening deterioration of the [multi] system(s) required my full and direct attention, intervention and personal management. The aggregate critical care time was [60] minutes. This time is in addition to time spent performing reported procedures but includes the following: [x] Data Review and interpretation [x] Patient assessment and monitoring of vital signs [x] Documentation [x] Medication orders and management Disposition Plan: icu Total Time Spent with Patient (Minutes): 60 History Interval history: This is an 82-year-old female with DM, HTN , PPM and arthritis who presented to the emergency department on 11/04 for shortness of breath ongoing for the past 3 days, cough and according to family a fever of 102.2. Upon arrival of EMS patient was found to be tachypneic and hypoxic with SPO2 of 76% on room air which later improved to 88% on nonrebreather. Work-up in the emergency department included a CXR which showed bilateral interstitial pulmonary edema with bilateral pleural effusions and bibasilar opacities, leukocytosis and anemia with a hemoglobin of 6.1. Patient was admitted to the hospitalist service with acute anemia, acute hypoxic respiratory failure, bilateral pneumonia and COVID-19 PUI with consults to pulmonology, infectious disease and later cardiology. Patient was eventually intubated in the emergency department on 11/06. Hospital Course to date: 11/04/2021: Empiric therapy with iv levaquin/vancomycin. COVID PCR pending. Will consult ID. PCCM consulted, will follow recs. Hypotensive this AM, ordered bolus and fluids at 150 cc/hr. May require pressor support if bp does not improve. 11/05/2021: GBS on bcx +, currently on rocephin IV. Currently on bipap due to respiratory distress overnight. Worsening BL opacities on CXR. May be volume overload vs pneumonia. Unfortunately bp too low for lasix at this point. WIll continue levophed and bipap. Once able to tolerate, may do trial of albumin/lasix. Call attempt made to Niraj, no response. Will try again tomorrow to update. 11/06/2021: Decompensated overnight requiring intubation. CXR shows worsening interstitial infiltrates. Currenlty on dopamine, levophed, vasopressin. PICC line ordered. Advised RN to place gamble for I/O monitoring. Would benefit from diuresis but very volume overloaded. Prognosis guarded 11/08: Off sedation this am, remains unresponsive only grimace to pain. Hold all sedatives agents for now, patient is off pressors this am. Hypernatremia from today's lab- D5W X1bag, and low K repleted, repeat lab in the am. Severe cons tipation also noted from KUB, BR added. 11/09: Sudden SPO2 drop in the 60s this am. Patient was manually bagged and deep suctioned. Patient is currently stable on the vent, repeat CXR with no signific ant change. D/w CCM Mucomyst and brochodilator added. Patient mentation is unchanged, continue to hold off on sedative agents. Neurology consulted. 11/10: Acute DVT noted on bilateral lower extremity Doppler ultrasound therefore she was started on Lovenox treatment dose. Failed SBT. Hypernatremia and hyperchloremia noted, free water flush adjusted. 11/11: Patient noted to be febrile with increasing of the cytosis, UA/BC sent and CXR ordered. ID escalated antibiotics to cefepime. CXR demonstrated mucous plug, bedside bronchoscopy was performed and O ETT was changed over bougie from 6 cm to 7.5. Patient was noted to have a pneumothorax postprocedure and chest tube was placed. Family updated by [facility]. Free water flush increased and will add Jaswant supplementation. 11/12: Patient not noted to follow commands, hypernatremia worsen/persist, increasing free water flush, potassium and magnesium and phosphorus repleted. Hemoglobin noted to be 7.1/24.5 from 7.03/12 yesterday. We will continue to trend and monitor. Vent changes per [facility]. Repeat CXR showed no residual pneumothorax. Consider waterseal tomorrow. Given persistent leukocytosis antibiotics escalated to cefepime per ID. 11/13: Remains on cefepime and vancomycin, vent changes per [facility]. Anemia noted and given 1 unit PRBC. And beta-charleen held in setting of Levophed drip infusing. Remains on fentanyl drip. 11/14: Patient put on CPAP trial by [facility], will continue chest tube until after extubation. Will rest on assist control. CT brain was cancelled by radio communication coordinator and reordered. 11/15: Patient removed chest tube overnight. Will obtain cxr. remains on low dose levo. CTH completed with no acute findings. RT to place on CPAP. 11/16: Hypernatremia/hyperchloremia noted on the increase of day water flushes. Anemia noted and ordered PRBC. asked RT to place on cpap but not done yet 11/17: Patient remains on the vent, awake and following commands. H&H stable s/p 2units PRBCs. GI on consult, no intervention at this time. Will continue protonix gtt and serial H&H Q6hrs. Keep patient NPO for now, D5w added for hypernatremia and NPO status. Plan for IVC filter placement today by Vascular. 11/18: Patient is s/p IVC filter. H&H continue to trend down, hbg 6.1 this am, 1 unit of PRBCs ordered. Plan for possible EGD today by GI. Keep patient NPO, continue PPI drip and serial H&H Q6hrs. Electrolytes repleted, repeat lab in the am 11/19: S/p EGD- larger duodenal ulcer noted, see operative note. GI recommendations noted also noted. H&H stable this am. Keep patient on protonix gtt for now. Will keep patient NPO, continue IVF and serial H&H for now. Electrolytes repleted, repeat labs in the am 11/20: Very agitated and restless this am, fentanyl gtt resumed. Patient remains on protonix gtt, H&H remains stable. Will switch protonix gtt to IV BID, continue carafate and okay to resume meds at this time. Will F/u with GI to see if TF can be resumed. Gamble was reinserted overnight for retention. Electrolytes repleted, repeat in the am. Plan for possible PST today for possible extubation per CCM. 11/21: Patient is now on seroquel and patient's home buspar resumed. Patient more calm this morning, fentanyl gtt is off. H&H remains stable and patient is tolerating TF. Patient had a runs of Vtach/PVCs this am, BB added per Cardio. Continue daily PS and wean trial for possible extubation. 11/22: Back on fentanyl gtt overnight , RASS o to -1, following commands. Patient failed PST this am due to increased work of breathing and low SPO2, ABG pending. Patient is also with worsen pitting edema, lasix is still on hold. Will discuss with cardio and CCM to possibly resume lasix. 11/23: MARIA DEL CARMEN overnight. Patient failed PST again this am. Per CCM plan for possible trach and PEG, hold off on IV lasix for now. General surgery consulted and family is aware of possible Trach and PEG. 11/24: Trach/PEG pending this week, continue SBT/SAT as tolerated. No acute events reported overnight. 11/25: Patient was n.p.o. overnight and will remain n.p.o. tonight for trach/PEG tomorrow morning. She failed to support trial again. KUB obtained due to distended belly. 11/26: Patient scheduled for tracheostomy and PEG tube placement today, has been n.p.o. since midnight. No acute events reported overnight. [facility] ordered simethicone scheduled. 11/27: No acute events reported overnight, patient received trach/PEG yesterday. Has been on feedings since last night. Still awaiting LTAC placement. 11/28: Patient magnesium repleted, repeat a.m. labs, SBT 11/29: Patient complains of chest pain but ECG obtained which showed no acute findings, ordered troponin. Patient failed CPAP yesterday and was trialed again today. levophed was restarted but will aggressively wean 11/30: Patient failed SBT. Continue supportive care. Started gabapentin today 12/01: MARIA DEL CARMEN overnight. Continue daily PST. Case management to arrange possible placement 12/02: Report of dark stools overnight, patient is hemodynamically stable. H&H stable, patient is on PPI. Will continue to trend H&H. Continue daily PST as tolerated. Awaiting LTAC vs SNF placement. 12/03: Hypotensive overnight, requiring low dose pressors. S/p X3 days of gentle diurese. Will continue to monitor, wean off pressors as tolerated for MAP of 65. Patient Failed PST yesterday, case management to follow up with insurance for possible LTAC placement. Continue daily PST as tolerated. PT eval and treat ordered. 12/04: Increased agitation and anxiety overnight, remains on buspar and seroquel, trazadone added to promote rest. Patient is now working with PT, keep patient engage and awake during the day so she can rest at night. No BM for over 5 days, BR was adjusted. Patient did not tolerate PST again yesterday, continue daily PST as tolerated. Continue to titrate pressor for MAP above 65. Pending possible LTAC placement, case management to arrange. 12/05: Still not getting much rest overnight, will add melatonin for sleep. Continue to engage patient during the day and promote rest at night. TF was held due to concern for possible bleeding, H&H remains stable and stools normal this am. Resume TF and continue PPI and carafate. Remains on low dose levophed, titrate as tolerated. Continue daily PST. Possible LTAC placement, awaiting approval. 12/06: MARIA DEL CARMEN overnight. Patient rested overnight. Continue supportive measures. Daily PST as tolerated. Awaiting possible LTAC placement 12/07: MARIA DEL CARMEN overnight. Plan for Tpiece trial today. Continue current supportive measures. Possible LTAC placement 12/08: Patient placed on pressure support trial again today, started on Xanax, no acute events reported overnight. Awaiting insurance approval for LTAC. 12/09: Levophed discontinued, LTAC transfer denied, started on midodrine and Lasix, ultrasound chest pending, started on Xanax 0.[address] De León updated family at bedside today. Started on Dilaudid every 3 hours as needed. 12/10: Patient placed on CPAP trial this morning, no acute events reported overnight. Will order ultrasound-guided thoracentesis. 12/11: Patient had a thoracentesis today, will decrease Xanax dosage and continue midodrine and diuresing. Patient failed CPAP today. Hospitalist Physical - Constitutional Vitals: Temp Pulse Resp BP Pulse Ox 97.9 F 82 18 129/61 100 12/11/21 16:00 12/11/21 16:30 12/11/21 16:30 12/11/21 16:30 12/11/21 16:30 General appearance: Present: no acute distress, other (Trah and on the vent) - EENT Eyes: Present: PERRL, EOM intact ENT: hearing intact, clear oral mucosa, dentition normal - Neck Neck: Present: normal ROM - Respiratory Respiratory effort: normal Respiratory: bilateral: diminished - Cardiovascular Rhythm: regular Heart Sounds: Present: S1 & S2. Absent: systolic murmur, diastolic murmur - Extremities Extremities: no ischemia, pulses intact, pulses symmetrical, No edema, normal temperature, normal color, Full ROM Peripheral Pulses: within normal limits - Abdominal General gastrointestinal: soft, non-tender, normal bowel sounds - Integumentary Integumentary: Present: warm - Psychiatric Psychiatric: cooperative - Neurologic Neurologic: CNII-XII intact, moves all extremities - Allied Health Allied health notes reviewed: nursing, RT, social work HEART Score - HEART Score Troponin: Troponin T 0.045 ng/mL (0.00-0.029) H 11/29/21 20:15 Results - Labs CBC & Chem 7: 12/11/21 04:35 12/11/21 04:35 Labs: Laboratory Last Values WBC 8.2 K/mm3 (4.5-11.0) 12/11/21 04:35 RBC 2.57 M/mm3 (3.65-5.03) L 12/11/21 04:35 Hgb 7.0 gm/dl (10.1-14.3) L 12/11/21 04:35 Hct 21.4 % (30.3-42.9) L 12/11/21 04:35 MCV 83 fl (79-97) 12/11/21 04:35 MCH 27 pg (28-32) L 12/11/21 04:35 MCHC 33 % (30-34) 12/11/21 04:35 RDW 21.1 % (13.2-15.2) H 12/11/21 04:35 Plt Count 225 K/mm3 (140-440) 12/11/21 04:35 Add Manual Diff Complete 11/16/21 15:25 Total Counted 100 11/16/21 15:25 Seg Neutrophils % Forklift Supervisor 11/06/21 15:50 Seg Neuts % (Manual) 87.0 % (40.0-70.0) H 11/16/21 15:25 Band Neutrophils % 0 % 11/16/21 15:25 Lymphocytes % (Manual) 8.0 % (13.4-35.0) L 11/16/21 15:25 Reactive Lymphs % (Man) 0 % 11/16/21 15:25 Monocytes % (Manual) 5.0 % (0.0-7.3) 11/16/21 15:25 Eosinophils % (Manual) 0 % (0.0-4.3) 11/16/21 15:25 Basophils % (Manual) 0 % (0.0-1.8) 11/16/21 15:25 Metamyelocytes % 0 % 11/16/21 15:25 Myelocytes % 0 % 11/16/21 15:25 Promyelocytes % 0 % 11/16/21 15:25 Blast Cells % 0 % 11/16/21 15:25 Nucleated RBC % Not Reportable 11/16/21 15:25 Seg Neutrophils # Man 15.0 K/mm3 (1.8-7.7) H 11/16/21 15:25 Band Neutrophils # 0.0 K/mm3 11/16/21 15:25 Lymphocytes # (Manual) 1.4 K/mm3 (1.2-5.4) 11/16/21 15:25 Abs React Lymphs (Man) 0.0 K/mm3 11/16/21 15:25 Monocytes # (Manual) 0.9 K/mm3 (0.0-0.8) H 11/16/21 15:25 Eosinophils # (Manual) 0.0 K/mm3 (0.0-0.4) 11/16/21 15:25 Basophils # (Manual) 0.0 K/mm3 (0.0-0.1) 11/16/21 15:25 Metamyelocytes # 0.0 K/mm3 11/16/21 15:25 Myelocytes # 0.0 K/mm3 11/16/21 15:25 Promyelocytes # 0.0 K/mm3 11/16/21 15:25 Blast Cells # 0.0 K/mm3 11/16/21 15:25 WBC Morphology Not Reportable 11/16/21 15:25 Hypersegmented Neuts Not Reportable 11/16/21 15:25 Hyposegmented Neuts Not Reportable 11/16/21 15:25 Hypogranular Neuts Not Reportable 11/16/21 15:25 Smudge Cells Not Reportable 11/16/21 15:25 Toxic Granulation Not Reportable 11/16/21 15:25 Toxic Vacuolation Not Reportable 11/16/21 15:25 Dohle Bodies Not Reportable 11/16/21 15:25 Pelger-Huet Anomaly Not Reportable 11/16/21 15:25 Irina Rods Not Reportable 11/16/21 15:25 Platelet Estimate Consistent w auto 11/16/21 15:25 Clumped Platelets Rare 11/16/21 15:25 Plt Clumps, EDTA Not Reportable 11/16/21 15:25 Large Platelets Not Reportable 11/16/21 15:25 Giant Platelets Not Reportable 11/16/21 15:25 Platelet Satelliting Not Reportable 11/16/21 15:25 Plt Morphology Comment Not Reportable 11/16/21 15:25 RBC Morphology Not Reportable 11/16/21 15:25 Dimorphic RBCs Not Reportable 11/16/21 15:25 Polychromasia Not Reportable 11/16/21 15:25 Hypochromasia 2+ 11/16/21 15:25 Poikilocytosis Not Reportable 11/16/21 15:25 Anisocytosis 2+ 11/16/21 15:25 Microcytosis Not Reportable 11/16/21 15:25 Macrocytosis Not Reportable 11/16/21 15:25 Spherocytes Not Reportable 11/16/21 15:25 Pappenheimer Bodies Not Reportable 11/16/21 15:25 Sickle Cells Not Reportable 11/16/21 15:25 Target Cells 2+ 11/16/21 15:25 Tear Drop Cells Not Reportable 11/16/21 15:25 Ovalocytes Not Reportable 11/16/21 15:25 Helmet Cells Not Reportable 11/16/21 15:25 Odonnell-Segundo Bodies Not Reportable 11/16/21 15:25 Truro Rings Not Reportable 11/16/21 15:25 Malcom Cells Not Reportable 11/16/21 15:25 Bite Cells Not Reportable 11/16/21 15:25 Crenated Cell Not Reportable 11/16/21 15:25 Elliptocytes Not Reportable 11/16/21 15:25 Acanthocytes (Spur) Not Reportable 11/16/21 15:25 Rouleaux Not Reportable 11/16/21 15:25 Hemoglobin C Crystals Not Reportable 11/16/21 15:25 Schistocytes Not Reportable 11/16/21 15:25 Malaria parasites Not Reportable 11/16/21 15:25 Godfrey Bodies Not Reportable 11/16/21 15:25 Hem Pathologist Commnt No 11/16/21 15:25 PT 16.9 Sec. (12.2-14.9) H 11/26/21 05:00 INR 1.24 (0.87-1.13) H 11/26/21 05:00 APTT 29.2 Sec. (24.2-36.6) 11/26/21 05:00 D-Dimer 2655.00 ng/mlDDU (0-234) H 11/11/21 04:28 ABG pH 7.449 pH Units (7.350-7.450) 11/21/21 16:00 ABG pCO2 32.1 mm Hg 11/21/21 16:00 ABG pO2 114.2 mm Hg (80.0-90.0) H 11/21/21 16:00 ABG HCO3 21.8 mmol/L (20.0-26.0) 11/21/21 16:00 ABG O2 Saturation 98.3 % (95.0-99.0) 11/21/21 16:00 ABG O2 Content 12.5 (0.0-44) 11/21/21 16:00 ABG Base Excess -1.7 mmol/L (-2.0-3.0) 11/21/21 16:00 ABG Hemoglobin 9.1 gm/dl (12.0-16.0) L 11/21/21 16:00 ABG Carboxyhemoglobin 1.9 % (0.0-5.0) 11/21/21 16:00 ABG Methemoglobin 0.5 % (0.0-1.5) 11/21/21 16:00 Oxyhemoglobin 96.0 % (95.0-99.0) 11/21/21 16:00 FiO2 30 % 11/21/21 16:00 Sodium 136 mmol/L (137-145) L 12/11/21 04:35 Potassium 4.1 mmol/L (3.6-5.0) 12/11/21 04:35 Chloride 99.2 mmol/L (98-107) 12/11/21 04:35 Carbon Dioxide 27 mmol/L (22-30) 12/11/21 04:35 Anion Gap 14 mmol/L 12/11/21 04:35 BUN 27 mg/dL (7-17) H 12/11/21 04:35 Creatinine 0.6 mg/dL (0.6-1.2) 12/11/21 04:35 Estimated GFR > 60 ml/min 12/11/21 04:35 BUN/Creatinine Ratio 45 % 12/11/21 04:35 Glucose 112 mg/dL (65-100) H 12/11/21 04:35 POC Glucose 111 mg/dL (70-105) H 12/11/21 16:07 Lactic Acid 3.70 mmol/L (0.7-2.0) H* 11/03/21 22:32 Calcium 7.6 mg/dL (8.4-10.2) L 12/11/21 04:35 Phosphorus 3.50 mg/dL (2.5-4.5) 12/08/21 04:00 Magnesium 2.20 mg/dL (1.7-2.3) 12/08/21 04:00 Ferritin 52.6 ng/mL (10.0-200.0) 11/05/21 06:11 Total Bilirubin 0.50 mg/dL (0.1-1.2) 11/17/21 05:56 Direct Bilirubin < 0.2 mg/dL (0-0.2) 11/11/21 04:28 Indirect Bilirubin 0.1 mg/dL 11/11/21 04:28 AST 36 units/L (5-40) 11/17/21 05:56 ALT 47 units/L (7-56) 11/17/21 05:56 Alkaline Phosphatase 107 units/L (35-129) 11/17/21 05:56 Ammonia 42.0 umol/L (25-60) 11/10/21 14:08 Lactate Dehydrogenase 187 units/L (91-180) H 11/05/21 06:11 Troponin T 0.045 ng/mL (0.00-0.029) H 11/29/21 20:15 C-Reactive Protein 22.20 mg/dL (0.00-1.30) H 11/05/21 06:11 NT-Pro-B Natriuret Pep 7895 pg/mL (0-900) H 11/03/21 22:32 Total Protein 5.1 g/dL (6.3-8.2) L 11/17/21 05:56 Albumin 2.2 g/dL (3.9-5) L 11/17/21 05:56 Albumin/Globulin Ratio 0.8 % 11/17/21 05:56 Triglycerides 59 mg/dL (2-149) 11/29/21 20:15 Cholesterol 74 mg/dL (50-199) 11/29/21 20:15 LDL Cholesterol Direct 25 mg/dL (50-130) L 11/29/21 20:15 HDL Cholesterol 41 mg/dL (40-59) 11/29/21 20:15 Cholesterol/HDL Ratio 1.80 % 11/29/21 20:15 Vitamin B12 1823 pg/mL (211-911) H 11/10/21 14:08 TSH 1.510 mlU/mL (0.270-4.200) 11/10/21 14:08 Urine Color Yellow (Yellow) 11/11/21 09:00 Urine Turbidity Slightly-cloudy (Clear) 11/11/21 09:00 Urine pH 5.0 (5.0-7.0) 11/11/21 09:00 Ur Specific [place] 1.009 (1.003-1.030) 11/11/21 09:00 Urine Protein <15 mg/dl mg/dL (Negative) 11/11/21 09:00 Urine Glucose (UA) Neg mg/dL (Negative) 11/11/21 09:00 Urine Ketones Neg mg/dL (Negative) 11/11/21 09:00 Urine Blood Mod (Negative) 11/11/21 09:00 Urine Nitrite Neg (Negative) 11/11/21 09:00 Urine Bilirubin Neg (Negative) 11/11/21 09:00 Urine Urobilinogen < 2.0 mg/dL (<2.0) 11/11/21 09:00 Ur Leukocyte Esterase Neg (Negative) 11/11/21 09:00 Urine WBC (Auto) < 1.0 /HPF (0.0-6.0) 11/11/21 09:00 Urine RBC (Auto) < 1.0 /HPF (0.0-6.0) 11/11/21 09:00 Coronavirus (PCR) Negative (Negative) 11/10/21 08:30 Blood Type O POSITIVE 11/18/21 10:45 Antibody Screen Negative 11/18/21 10:45 Crossmatch See Detail 11/18/21 10:45 Gamble/IV: Voiding Method Indwelling Catheter Active Medications - Current Medications Current Medications: Generic Name Dose Route Start Last Admin Trade Name Freq PRN Reason Stop Dose Admin Hydrocodone Bitart/Acetaminophen 1 each 11/21/21 10:00 12/11/21 14:21 Hydrocodone/Acetaminophen 10-325mg Tab FEEDTUBE 1 each TID YOSSI Administration Alprazolam 0.25 mg 12/11/21 16:00 12/11/21 16:52 Alprazolam 0.25 Mg Tab PO 0.25 mg Q8H YOSSI Administration Lipase/Protease/Amylase 1 each 11/08/21 11:09 Lipase 10,500/Protease 25,000/Amylase 43,750 (Units) Dr Lema FEEDTUBE PRN PRN For Clogged Feeding Tube Buspirone HCl 7.5 mg 11/17/21 22:00 12/11/21 09:09 Buspirone 5 Mg Tab PO 7.5 mg BID YOSSI Administration Dextrose 0 ml 11/10/21 10:52 02/04/22 16:27 Dextrose 10% *Hypoglycemia IV 50 ml PRN PRN Administration Hypoglycemia Docusate Sodium 100 mg 12/04/21 11:00 12/11/21 09:08 Docusate Sodium 100 Mg/10 Ml Oral Liqd PO 100 mg BID YOSSI Administration Fentanyl 1 applic 11/17/21 13:00 12/11/21 09:09 Fentanyl 25 Mcg/Hr Patch 72hr TD 1 applic Q3D YOSSI Administration Furosemide 20 mg 12/09/21 10:00 12/11/21 09:09 Furosemide 20 Mg Tab PO 20 mg QDAY YOSSI Administration Gabapentin 100 mg 12/01/21 10:00 12/11/21 09:08 Gabapentin 100 Mg Cap PO 100 mg QDAY YOSSI Administration Hydromorphone HCl 0.5 mg 12/08/21 20:06 12/09/21 21:21 Hydromorphone 1 Mg/1 Ml Inj IV 0.5 mg Q3H PRN Administration Pain, Moderate (4-6) Hydrophilic Ointment 1 applic 11/06/21 04:02 Lip Therapy Vaseline TP Q2HR PRN Dry Lips Lansoprazole 30 mg 11/24/21 22:00 12/11/21 09:08 Lansoprazole 30 Mg Solutab FEEDTUBE 30 mg BID YOSSI Administration Levothyroxine Sodium 125 mcg 11/05/21 07:00 12/11/21 05:58 Levothyroxine 125 Mcg Tab PO 125 mcg DAILY@0600 YOSSI Administration Melatonin 5 mg 12/05/21 22:00 12/10/21 21:37 Melatonin 5 Mg Tab PO 5 mg QHS YOSSI Administration Metoprolol Tartrate 6.25 mg 12/08/21 22:52 12/11/21 09:08 Metoprolol Tartrate 25 Mg Tab PO 6.25 mg BID YOSSI Administration Midodrine 10 mg 12/09/21 08:00 12/11/21 12:39 Midodrine 5 Mg Tab PO 10 mg TID@0800,1200,1600 YOSSI Administration Multi-Ingred Cream/Lotion/Oil/Oint 1 applic 11/06/21 04:02 Mineral Oil/Petrolatum, White Ophth Oint 3.5 Gm OU Q4HR PRN Dry Eye(s) Nitroglycerin 0.4 mg 11/30/21 11:36 Nitroglycerin 0.4 Mg Tab Subl SL .Q5MIN PRN Chest Pain Ondansetron HCl 4 mg 12/05/21 10:00 12/08/21 05:17 Ondansetron 4 Mg/2 Ml Inj IV 4 mg Q8H PRN Administration Nausea And Vomiting Polyethylene Glycol 17 gm 12/02/21 10:00 12/11/21 09:09 Polyethylene Glycol 3350 17 Gm Powder PO 17 gm QDAY YOSSI Administration Pravastatin Sodium 20 mg 11/18/21 22:00 12/10/21 21:37 Pravastatin 20 Mg Tab PO 20 mg QHS YOSSI Administration Quetiapine Fumarate 50 mg 12/01/21 22:00 12/10/21 21:37 Quetiapine 25 Mg Tab PO 50 mg QHS YOSSI Administration Senna 17.6 mg 11/08/21 22:00 12/11/21 09:08 Sennosides Oral Liqd 8.8 Mg/5 Ml Oral Liqd PO 17.6 mg Q12HR YOSSI Administration Simple Syrup 15 ml 11/08/21 11:09 Simple Syrup 15 Ml FEEDTUBE PRN PRN Hypoglycemia Simple Syrup 30 ml 11/08/21 11:09 Simple Syrup 15 Ml FEEDTUBE PRN PRN Hypoglycemia Sodium Bicarbonate 325 mg 11/08/21 11:09 Sodium Bicarbonate 325 Mg Tab FEEDTUBE PRN PRN For Clogged Feeding Tube Sodium Chloride 10 ml 11/04/21 10:00 12/11/21 09:10 Sodium Chloride 0.9% 10 Ml Flush Syringe IV 10 ml BID YOSSI Administration Sodium Chloride 10 ml 11/04/21 02:03 Sodium Chloride 0.9% 10 Ml Flush Syringe IV PRN PRN LINE FLUSH Sucralfate 1 gm 11/18/21 16:30 12/11/21 12:10 Sucralfate 1 Gm/10 Ml Oral Liqd PO 1 gm ACHS YOSSI Administration Trazodone HCl 50 mg 12/04/21 22:00 12/10/21 21:38 Trazodone 50 Mg Tab PO 50 mg QHS YOSSI Administration Nutrition/Malnutrition Assess - Dietary Evaluation Nutrition/Malnutrition Findings: Nutrition Notes Start: 11/04/21 17:16 Freq: Status: Active Protocol: Document 12/08/21 10:17 YOVANI (Rec: 12/08/21 10:27 [email or web address] [id number]) Nutrition Notes Initial or Follow up Reassessment Current Diagnosis Diabetes,Hypertension,Heart Failure,Respiratory Failure Other Pertinent Diagnosis Bilat pneu, acute GIB Current Diet TF - Vital AF 1.2 at 40ml/hr Labs/Tests Na 135 BUN 23 H/H 7.7/23.5 Pertinent Medications Colace, Miralax Height 5 ft Weight 62.4 kg [place] Body Weight (kg) 45.45 BMI 26.9 Weight Status Appropriate Subjective/Other Information Trach and PEG placed on 11/26. Pt remains on vent support. BM x 1 on yesterday; previous report of no BM x 5 days on . Pt tolerating TF. Percent of energy/protein needs met: 95% energy 96% pro Burn Absent Trauma Absent #1 Nutrition Diagnosis Inadequate oral intake Diagnosis Progress(for reassessment Continues documentation) Is patient on ventilator? Yes Is Patient Ambulatory and/or Out of Bed No REE-([facility]-confined to bed) 1207.824 Calculation Used for Recommendations [facility] Additional Notes Pro needs 1.2-2g/k-125g/ day Fluid needs 1ml/kcal Nutrition Intervention Nutrition Support: Continue Vital AF 1.2 at 40ml/ hr. Provide 65ml water flush q4h. Kcal 1,152 Protein (gm) 72 Carbohydrates (gm) 106 Fat (gm) 52 Fluid (mL) 779 Fiber (gm) 5 Goal #1 TF tolerance Goal #2 TF to meet at least 75% energy and pro needs Follow-Up By: 12/15/21 Additional Comments F/U: stable TF, vent status, wt
[2021-12-11] MEDS: QUEtiapine 25 MG TAB PO SCH (22:36)
[2021-12-11] MEDS: PRAVASTATIN 20 MG TAB PO SCH (22:36)
[2021-12-11] MEDS: traZODone 50 MG TAB PO SCH (22:36)
[2021-12-11] MEDS: MELATONIN 5 MG TAB PO SCH (22:36)
[2021-12-12] MEDS: ALPRAZolam 0.25 MG TAB PO SCH ×3 (00:39→17:00)
[2021-12-12 05:20] LABS: Hematocrit 21.5 % (30.3-42.9); Hemoglobin 7.1 gm/dl (10.1-14.3); Mean Corpuscular HGB Conc 33 % (30-34); Mean Corpuscular Volume 83 fl (79-97); Platelet Count 227 K/mm3 (140-440)
[2021-12-12 05:25] LABS: Red Cell Distribution Width 20.3 % (13.2-15.2)
[2021-12-12 05:41] LABS: Blood Urea Nitrogen 26 mg/dL (7-17); Calcium 8.2 mg/dL (8.4-10.2); Hemolysis Index 1
[2021-12-12 06:19] LABS: BUN/Creatinine Ratio 52
[2021-12-12] MEDS: LEVOTHYROXINE 125 MCG TAB PO SCH (06:30)
[2021-12-12] MEDS: SUCRALFATE 1 GM/10 ML ORAL LIQD PO SCH ×4 (08:14→22:17)
[2021-12-12] MEDS: HYDROcodone/ACETAMINOPHEN 10-325MG TAB FEEDTUBE SCH ×3 (08:14→22:20)
[2021-12-12] MEDS: MIDODRINE 5 MG TAB PO SCH ×3 (08:14→16:56)
[2021-12-12] MEDS: SENNOSIDES ORAL LIQD 8.8 MG/5 ML ORAL LIQD PO SCH ×2 (11:00→22:16)
[2021-12-12] MEDS: LANSOPRAZOLE 30 MG SOLUTAB FEEDTUBE SCH ×2 (11:00→22:17)
[2021-12-12] MEDS: FUROSEMIDE 20 MG TAB PO SCH (11:00)
[2021-12-12] MEDS: DOCUSATE SODIUM 100 MG/10 ML ORAL LIQD PO SCH ×2 (11:09→22:17)
[2021-12-12] MEDS: busPIRone 5 MG TAB PO SCH ×2 (11:10→22:17)
[2021-12-12] MEDS: POLYETHYLENE GLYCOL 3350 17 GM POWDER PO SCH (11:12)
[2021-12-12] MEDS: GABAPENTIN 100 MG CAP PO SCH (11:12)
--- NOTE | 2021-12-12 12:16 | Progress Note ---
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 (Called insurance company for peer discussion and her LTAC transfer was denied due to "hemodynamic instability" despite my explaining that she has only intermittently required 2 nicole's/min of Levophed and also that she can be easily managed at the LTAC which also treats critically ill patients) - repeat CBC in 48 hours re: Hb level - continue daily SAT and SBT assessment as tolerated - LTAC evaluation ongoing - no new issues otherwise, continue care as below; - continue gentle diuresis - continue Midodrine - prn Levophed for target MAP > 65 mmHg - continue to wean supplemental oxygen for target O2 sat's > 90% acutely - VAP bundle addressed - continue lung protective strategies - continue bronchodilators with routine trach care and pulmonary hygiene per RT - wean per pulmonary driven protocols otherwise - avoid nephrotoxins, renally dose all medications - continue accuchecks with glycemic control per SSI (While critically ill target blood glucose of 140-180 mg/dL; avoid hypoglycemia) - sedation prn for target RASS 0 to -1 - antibiotics per ID recommendations - continue to avoid benzodiazepine's, reduce the possibility of delirium - prn analgesia per CPOT score - Maintenance of sleep-wake cycle, avoid delirium - continue enteral nutritional support at goal rate as tolerated - G.I. & VTE prophylaxis - PT/OT/ROM exercises - continue mobility protocols for pressure ulcer prophylaxis - Monitor hemodynamics closely - continue other care per attending / other consultants - discharge planning ongoing concurrently COVID SPECIFIC INTERVENTIONS - COVID-19 PCR negative .... Re-evaluate in am & prn CONDITION: CRITICAL PROGNOSIS: GUARDED CODE STATUS: FULL CODE The high probability of a clinically significant, sudden or life-threatening deterioration of the [respiratory, cardiovascular & neurologic] system(s) required my full and direct attention, intervention and personal management. The aggregate critical care time was [32] minutes without overlap. Time includes spent on; [x] Data Review and interpretation [x] Patient assessment and monitoring of vital signs [x] Documentation [x] Medication orders and management Subjective Date of service: 12/12/21 Principal diagnosis: Septic shock; AHRF; Anemia; Pneumonia; L. pleural effusion; HFrEF; Pulm HTN Interval history: Patient is seen today for: Septic shock; Acute hypoxemic respiratory failure; Anemia; Bilateral pneumonia; Left pleural effusion; HFrEF 30-35%; Pulm HTN RVSP 49 Seen and examined at bedside; 24hour events reviewed; nursing and respiratory care staff consulted; no adverse overnight events reported to me; resting in bed; remains a difficult wean; on PSV trial but needing p-supp of 18 cm H2O; no emesis or overt aspiration Objective Vital Signs - 12hr 12/12/21 12/12/21 12/12/21 00:30 00:40 00:45 Temperature Pulse Rate 65 69 68 Pulse Rate [ From Monitor] Respiratory 15 16 Rate Blood Pressure 115/41 115/41 115/41 O2 Sat by Pulse 97 98 98 Oximetry 12/12/21 12/12/21 12/12/21 01:00 01:15 01:30 Temperature Pulse Rate 70 68 68 Pulse Rate [ From Monitor] Respiratory 15 14 14 Rate Blood Pressure 120/44 120/44 116/42 O2 Sat by Pulse 98 96 97 Oximetry 12/12/21 12/12/21 12/12/21 01:45 02:00 02:15 Temperature Pulse Rate 68 72 67 Pulse Rate [ From Monitor] Respiratory 17 21 19 Rate Blood Pressure 116/42 111/44 111/44 O2 Sat by Pulse 97 97 97 Oximetry 12/12/21 12/12/21 12/12/21 02:30 02:45 03:00 Temperature Pulse Rate 66 68 68 Pulse Rate [ From Monitor] Respiratory 20 11 L 16 Rate Blood Pressure 116/47 116/47 121/46 O2 Sat by Pulse 98 97 97 Oximetry 12/12/21 12/12/21 12/12/21 03:15 03:30 03:45 Temperature Pulse Rate 73 67 67 Pulse Rate [ From Monitor] Respiratory 22 16 14 Rate Blood Pressure 121/46 111/43 111/43 O2 Sat by Pulse 97 96 98 Oximetry 12/12/21 12/12/21 12/12/21 04:00 04:01 04:15 Temperature 98 F Pulse Rate 73 73 73 Pulse Rate [ 77 From Monitor] Respiratory 17 14 14 Rate Blood Pressure 139/62 139/62 O2 Sat by Pulse 99 97 97 Oximetry 12/12/21 12/12/21 12/12/21 04:30 04:45 04:55 Temperature Pulse Rate 73 73 78 Pulse Rate [ From Monitor] Respiratory 14 15 Rate Blood Pressure 137/63 137/63 103/36 O2 Sat by Pulse 98 99 98 Oximetry 12/12/21 12/12/21 12/12/21 05:00 05:15 05:30 Temperature Pulse Rate 70 71 68 Pulse Rate [ From Monitor] Respiratory 14 14 14 Rate Blood Pressure 128/59 128/59 103/36 O2 Sat by Pulse 97 97 96 Oximetry 12/12/21 12/12/21 12/12/21 05:45 06:00 06:15 Temperature Pulse Rate 77 71 77 Pulse Rate [ From Monitor] Respiratory 14 14 14 Rate Blood Pressure 103/36 113/43 113/43 O2 Sat by Pulse 97 98 99 Oximetry 12/12/21 12/12/21 12/12/21 06:30 06:45 07:00 Temperature Pulse Rate 73 79 76 Pulse Rate [ From Monitor] Respiratory 16 15 14 Rate Blood Pressure 120/48 120/48 126/54 O2 Sat by Pulse 99 98 99 Oximetry 12/12/21 12/12/21 12/12/21 07:15 07:30 07:45 Temperature Pulse Rate 80 89 90 Pulse Rate [ From Monitor] Respiratory 16 14 15 Rate Blood Pressure 126/54 136/62 136/62 O2 Sat by Pulse 98 100 99 Oximetry 12/12/21 12/12/21 12/12/21 08:00 08:15 08:30 Temperature Pulse Rate 89 88 87 Pulse Rate [ 72 From Monitor] Respiratory 18 16 14 Rate Blood Pressure 138/60 138/60 148/52 O2 Sat by Pulse 99 98 97 Oximetry 12/12/21 12/12/21 12/12/21 08:42 08:45 09:00 Temperature Pulse Rate 83 78 73 Pulse Rate [ From Monitor] Respiratory 22 14 Rate Blood Pressure 148/52 148/52 104/37 O2 Sat by Pulse 96 97 98 Oximetry 12/12/21 12/12/21 12/12/21 09:01 09:15 09:30 Temperature Pulse Rate 75 73 73 Pulse Rate [ From Monitor] Respiratory 13 12 14 Rate Blood Pressure 96/35 96/35 98/37 O2 Sat by Pulse 96 96 97 Oximetry 12/12/21 12/12/21 12/12/21 09:45 10:00 10:15 Temperature Pulse Rate 73 73 72 Pulse Rate [ From Monitor] Respiratory 15 12 16 Rate Blood Pressure 108/41 104/37 104/37 O2 Sat by Pulse 98 98 98 Oximetry 12/12/21 12/12/21 12/12/21 10:30 10:45 11:00 Temperature Pulse Rate 70 64 65 Pulse Rate [ From Monitor] Respiratory 14 16 13 Rate Blood Pressure 104/35 104/35 108/38 O2 Sat by Pulse 97 98 98 Oximetry 12/12/21 12/12/21 12/12/21 11:16 11:30 11:45 Temperature Pulse Rate 64 68 75 Pulse Rate [ From Monitor] Respiratory 13 16 20 Rate Blood Pressure 108/38 117/43 117/43 O2 Sat by Pulse 97 99 99 Oximetry 12/12/21 12:00 Temperature Pulse Rate 75 Pulse Rate [ From Monitor] Respiratory 27 H Rate Blood Pressure 129/70 O2 Sat by Pulse 97 Oximetry Constitutional: alert, appears uncomfortable (restless really), other (trach to MVS, frail elderly woman with mildly increased respiratory effort at rest) Eyes: non-icteric ENT: oropharynx moist, other (+ Midline tracheostomy) Neck: supple, no lymphadenopathy, no JVD Effort: mildly labored Ascultation: Bilateral: diminished breath sounds, rhonchi Percussion: Bilateral: not dull Cardiovascular: regular rate and rhythm, other (S1,S2) Gastrointestinal: normoactive bowel sounds, soft, non-tender, non-distended (protuberant) Integumentary: normal Extremities: no cyanosis, pink and warm, pulses normal, edema (upper etremities) Neurologic: normal mental status, non-focal exam (grossly), pupils equal and round, motor strength normal and Psychiatric: mood appropriate, affect normal CBC and BMP: 12/15/21 07:00 12/15/21 07:00 ABG, PT/INR, D-dimer: ABG ABG pH 7.449 pH Units (7.350-7.450) 11/21/21 16:00 ABG pCO2 32.1 mm Hg 11/21/21 16:00 ABG pO2 114.2 mm Hg (80.0-90.0) H 11/21/21 16:00 ABG O2 Saturation 98.3 % (95.0-99.0) 11/21/21 16:00 PT/INR, D-dimer PT 16.9 Sec. (12.2-14.9) H 11/26/21 05:00 INR 1.24 (0.87-1.13) H 11/26/21 05:00 D-Dimer 2655.00 ng/mlDDU (0-234) H 11/11/21 04:28 Abnormal lab findings: Abnormal Labs 11/03/21 11/03/21 11/03/21 22:32 22:32 22:32 WBC 29.3 H RBC 2.93 L Hgb 6.1 L Hct 21.9 L MCV 75 L MCH 21 L MCHC 28 L RDW 19.7 H Plt Count Seg Neuts % (Manual) 97.0 H Lymphocytes % (Manual) 3.0 L Seg Neutrophils # Man 28.4 H Lymphocytes # (Manual) 0.9 L Monocytes # (Manual) PT 18.6 H INR 1.40 H D-Dimer ABG pH ABG pO2 ABG HCO3 ABG O2 Saturation ABG Base Excess ABG Hemoglobin Oxyhemoglobin Sodium Potassium Chloride Carbon Dioxide 20 L BUN 33 H Creatinine Glucose 119 H POC Glucose Lactic Acid Calcium 8.3 L Phosphorus Magnesium AST ALT Alkaline Phosphatase Lactate Dehydrogenase Troponin T 0.035 H C-Reactive Protein NT-Pro-B Natriuret Pep Total Protein Albumin LDL Cholesterol Direct 34 L Vitamin B12 Crossmatch 11/03/21 11/03/21 11/03/21 22:32 22:32 23:57 WBC RBC Hgb Hct MCV MCH MCHC RDW Plt Count Seg Neuts % (Manual) Lymphocytes % (Manual) Seg Neutrophils # Man Lymphocytes # (Manual) Monocytes # (Manual) PT INR D-Dimer ABG pH ABG pO2 ABG HCO3 ABG O2 Saturation ABG Base Excess ABG Hemoglobin Oxyhemoglobin Sodium Potassium Chloride Carbon Dioxide BUN Creatinine Glucose POC Glucose Lactic Acid 3.70 H* Calcium Phosphorus Magnesium AST ALT Alkaline Phosphatase 139 H Lactate Dehydrogenase Troponin T C-Reactive Protein NT-Pro-B Natriuret Pep 7895 H Total Protein Albumin 3.5 L LDL Cholesterol Direct Vitamin B12 Crossmatch See Detail 11/04/21 11/04/21 11/05/21 00:59 13:58 00:51 WBC 27.9 H RBC 3.28 L Hgb 7.3 L Hct 25.5 L MCV 78 L MCH 22 L MCHC 29 L RDW 19.1 H Plt Count Seg Neuts % (Manual) 96.0 H Lymphocytes % (Manual) 2.0 L Seg Neutrophils # Man 26.8 H Lymphocytes # (Manual) 0.6 L Monocytes # (Manual) PT INR D-Dimer ABG pH ABG pO2 ABG HCO3 ABG O2 Saturation ABG Base Excess ABG Hemoglobin Oxyhemoglobin Sodium Potassium Chloride Carbon Dioxide BUN Creatinine Glucose POC Glucose Lactic Acid Calcium Phosphorus Magnesium AST ALT Alkaline Phosphatase Lactate Dehydrogenase Troponin T 0.051 H D 0.032 H D C-Reactive Protein NT-Pro-B Natriuret Pep Total Protein Albumin LDL Cholesterol Direct Vitamin B12 Crossmatch 11/05/21 11/05/21 11/05/21 06:11 06:11 06:11 WBC 31.8 H RBC 3.57 L Hgb 8.0 L Hct 27.7 L MCV 78 L MCH 22 L MCHC 29 L RDW 19.2 H Plt Count Seg Neuts % (Manual) 91.0 H Lymphocytes % (Manual) 4.5 L Seg Neutrophils # Man 28.9 H Lymphocytes # (Manual) Monocytes # (Manual) 1.1 H PT INR D-Dimer 1494.53 H ABG pH ABG pO2 ABG HCO3 ABG O2 Saturation ABG Base Excess ABG Hemoglobin Oxyhemoglobin Sodium Potassium Chloride Carbon Dioxide 19 L BUN 42 H Creatinine Glucose 115 H POC Glucose Lactic Acid Calcium Phosphorus Magnesium AST 43 H ALT Alkaline Phosphatase Lactate Dehydrogenase 187 H Troponin T C-Reactive Protein 22.20 H NT-Pro-B Natriuret Pep Total Protein 6.0 L Albumin 3.2 L LDL Cholesterol Direct Vitamin B12 Crossmatch 11/05/21 11/05/21 11/06/21 06:11 12:15 00:30 WBC RBC Hgb Hct MCV MCH MCHC RDW Plt Count Seg Neuts % (Manual) Lymphocytes % (Manual) Seg Neutrophils # Man Lymphocytes # (Manual) Monocytes # (Manual) PT INR D-Dimer ABG pH ABG pO2 ABG HCO3 ABG O2 Saturation ABG Base Excess ABG Hemoglobin Oxyhemoglobin Sodium Potassium Chloride Carbon Dioxide BUN Creatinine Glucose POC Glucose 113 H 69 L Lactic Acid Calcium Phosphorus Magnesium AST ALT Alkaline Phosphatase Lactate Dehydrogenase Troponin T 0.033 H C-Reactive Protein NT-Pro-B Natriuret Pep Total Protein Albumin LDL Cholesterol Direct Vitamin B12 Crossmatch 11/06/21 11/06/21 11/06/21 05:50 15:50 15:50 WBC 25.5 H RBC 3.62 L Hgb 8.0 L Hct 27.5 L MCV 76 L MCH 22 L MCHC 29 L RDW 19.6 H Plt Count Seg Neuts % (Manual) 92.0 H Lymphocytes % (Manual) 5.0 L Seg Neutrophils # Man 23.5 H Lymphocytes # (Manual) Monocytes # (Manual) PT INR D-Dimer ABG pH 7.305 L ABG pO2 ABG HCO3 15.8 L ABG O2 Saturation ABG Base Excess -9.6 L ABG Hemoglobin 8.6 L Oxyhemoglobin 94.6 L Sodium Potassium Chloride 113.9 H Carbon Dioxide 17 L BUN 56 H Creatinine Glucose 114 H POC Glucose Lactic Acid Calcium 7.9 L Phosphorus Magnesium AST 1410 H ALT 934 H Alkaline Phosphatase 142 H Lactate Dehydrogenase Troponin T C-Reactive Protein NT-Pro-B Natriuret Pep Total Protein 5.0 L Albumin 2.6 L LDL Cholesterol Direct Vitamin B12 Crossmatch 11/07/21 11/07/21 11/07/21 03:30 04:50 08:07 WBC RBC Hgb Hct MCV MCH MCHC RDW Plt Count Seg Neuts % (Manual) Lymphocytes % (Manual) Seg Neutrophils # Man Lymphocytes # (Manual) Monocytes # (Manual) PT INR D-Dimer ABG pH ABG pO2 296.9 H ABG HCO3 18.1 L ABG O2 Saturation 99.5 H ABG Base Excess -5.9 L ABG Hemoglobin 7.6 L Oxyhemoglobin Sodium Potassium Chloride Carbon Dioxide BUN Creatinine Glucose POC Glucose 106 H 108 H Lactic Acid Calcium Phosphorus Magnesium AST ALT Alkaline Phosphatase Lactate Dehydrogenase Troponin T C-Reactive Protein NT-Pro-B Natriuret Pep Total Protein Albumin LDL Cholesterol Direct Vitamin B12 Crossmatch 11/08/21 11/08/21 11/08/21 03:10 18:05 23:43 WBC RBC Hgb Hct MCV MCH MCHC RDW Plt Count Seg Neuts % (Manual) Lymphocytes % (Manual) Seg Neutrophils # Man Lymphocytes # (Manual) Monocytes # (Manual) PT INR D-Dimer ABG pH ABG pO2 127.4 H ABG HCO3 ABG O2 Saturation ABG Base Excess -3.4 L ABG Hemoglobin 7.4 L Oxyhemoglobin Sodium Potassium Chloride Carbon Dioxide BUN Creatinine Glucose POC Glucose 113 H 141 H Lactic Acid Calcium Phosphorus Magnesium AST ALT Alkaline Phosphatase Lactate Dehydrogenase Troponin T C-Reactive Protein NT-Pro-B Natriuret Pep Total Protein Albumin LDL Cholesterol Direct Vitamin B12 Crossmatch 11/08/21 11/08/21 11/09/21 Unknown Unknown 02:00 WBC 14.5 H RBC 3.35 L Hgb 7.5 L 8.1 L Hct 25.4 L 27.6 L MCV 76 L 76 L MCH 23 L 22 L MCHC RDW 19.9 H 19.9 H Plt Count Seg Neuts % (Manual) Lymphocytes % (Manual) Seg Neutrophils # Man Lymphocytes # (Manual) Monocytes # (Manual) PT INR D-Dimer ABG pH ABG pO2 ABG HCO3 ABG O2 Saturation ABG Base Excess ABG Hemoglobin Oxyhemoglobin Sodium 154 H D Potassium 3.3 L Chloride 120.7 H Carbon Dioxide 20 L BUN 38 H Creatinine Glucose POC Glucose Lactic Acid Calcium 8.3 L Phosphorus Magnesium AST ALT Alkaline Phosphatase Lactate Dehydrogenase Troponin T C-Reactive Protein NT-Pro-B Natriuret Pep Total Protein Albumin LDL Cholesterol Direct Vitamin B12 Crossmatch 11/09/21 11/09/21 11/09/21 02:00 02:31 05:12 WBC RBC Hgb Hct MCV MCH MCHC RDW Plt Count Seg Neuts % (Manual) Lymphocytes % (Manual) Seg Neutrophils # Man Lymphocytes # (Manual) Monocytes # (Manual) PT INR D-Dimer ABG pH 7.479 H ABG pO2 121.3 H ABG HCO3 ABG O2 Saturation ABG Base Excess ABG Hemoglobin 7.3 L Oxyhemoglobin Sodium Potassium Chloride 112.5 H Carbon Dioxide BUN 33 H Creatinine Glucose 161 H POC Glucose 135 H Lactic Acid Calcium Phosphorus Magnesium AST 251 H ALT 481 H Alkaline Phosphatase Lactate Dehydrogenase Troponin T C-Reactive Protein NT-Pro-B Natriuret Pep Total Protein 5.0 L Albumin 2.8 L LDL Cholesterol Direct Vitamin B12 Crossmatch 11/09/21 11/09/21 11/09/21 11:33 16:32 23:28 WBC RBC Hgb Hct MCV MCH MCHC RDW Plt Count Seg Neuts % (Manual) Lymphocytes % (Manual) Seg Neutrophils # Man Lymphocytes # (Manual) Monocytes # (Manual) PT INR D-Dimer ABG pH ABG pO2 ABG HCO3 ABG O2 Saturation ABG Base Excess ABG Hemoglobin Oxyhemoglobin Sodium Potassium Chloride Carbon Dioxide BUN Creatinine Glucose POC Glucose 132 H 133 H 143 H Lactic Acid Calcium Phosphorus Magnesium AST ALT Alkaline Phosphatase Lactate Dehydrogenase Troponin T C-Reactive Protein NT-Pro-B Natriuret Pep Total Protein Albumin LDL Cholesterol Direct Vitamin B12 Crossmatch 11/10/21 11/10/21 11/10/21 04:00 04:00 05:35 WBC 16.0 H RBC 3.61 L Hgb 8.0 L Hct 27.1 L MCV 75 L MCH 22 L MCHC RDW 20.4 H Plt Count Seg Neuts % (Manual) Lymphocytes % (Manual) Seg Neutrophils # Man Lymphocytes # (Manual) Monocytes # (Manual) PT INR D-Dimer ABG pH ABG pO2 ABG HCO3 ABG O2 Saturation ABG Base Excess ABG Hemoglobin Oxyhemoglobin Sodium 149 H Potassium Chloride 114.1 H Carbon Dioxide BUN 31 H Creatinine Glucose 148 H POC Glucose 132 H Lactic Acid Calcium 8.2 L Phosphorus Magnesium AST ALT Alkaline Phosphatase Lactate Dehydrogenase Troponin T C-Reactive Protein NT-Pro-B Natriuret Pep Total Protein Albumin LDL Cholesterol Direct Vitamin B12 Crossmatch 11/10/21 11/10/21 11/10/21 11:31 14:08 15:35 WBC RBC Hgb Hct MCV MCH MCHC RDW Plt Count Seg Neuts % (Manual) Lymphocytes % (Manual) Seg Neutrophils # Man Lymphocytes # (Manual) Monocytes # (Manual) PT INR D-Dimer ABG pH ABG pO2 126.6 H ABG HCO3 ABG O2 Saturation ABG Base Excess ABG Hemoglobin 7.4 L Oxyhemoglobin Sodium Potassium Chloride Carbon Dioxide BUN Creatinine Glucose POC Glucose 147 H Lactic Acid Calcium Phosphorus Magnesium AST ALT Alkaline Phosphatase Lactate Dehydrogenase Troponin T C-Reactive Protein NT-Pro-B Natriuret Pep Total Protein Albumin LDL Cholesterol Direct Vitamin B12 1823 H Crossmatch 11/10/21 11/11/21 11/11/21 17:53 00:55 04:28 WBC RBC Hgb Hct MCV MCH MCHC RDW Plt Count Seg Neuts % (Manual) Lymphocytes % (Manual) Seg Neutrophils # Man Lymphocytes # (Manual) Monocytes # (Manual) PT INR D-Dimer ABG pH ABG pO2 ABG HCO3 ABG O2 Saturation ABG Base Excess ABG Hemoglobin Oxyhemoglobin Sodium 149 H Potassium Chloride 112.2 H Carbon Dioxide BUN 34 H Creatinine Glucose 148 H POC Glucose 140 H 145 H Lactic Acid Calcium 7.9 L Phosphorus Magnesium AST 53 H ALT 203 H Alkaline Phosphatase Lactate Dehydrogenase Troponin T C-Reactive Protein NT-Pro-B Natriuret Pep Total Protein 4.9 L Albumin 2.6 L LDL Cholesterol Direct Vitamin B12 Crossmatch 11/11/21 11/11/21 11/11/21 04:28 04:28 05:28 WBC 20.9 H RBC 3.47 L Hgb 7.5 L Hct 26.0 L MCV 75 L MCH 22 L MCHC 29 L RDW 21.6 H Plt Count 132 L Seg Neuts % (Manual) Lymphocytes % (Manual) Seg Neutrophils # Man Lymphocytes # (Manual) Monocytes # (Manual) PT INR D-Dimer 2655.00 H ABG pH ABG pO2 ABG HCO3 ABG O2 Saturation ABG Base Excess ABG Hemoglobin Oxyhemoglobin Sodium Potassium Chloride Carbon Dioxide BUN Creatinine Glucose POC Glucose 154 H Lactic Acid Calcium Phosphorus Magnesium AST ALT Alkaline Phosphatase Lactate Dehydrogenase Troponin T C-Reactive Protein NT-Pro-B Natriuret Pep Total Protein Albumin LDL Cholesterol Direct Vitamin B12 Crossmatch 11/11/21 11/11/21 11/12/21 12:38 18:13 00:14 WBC RBC Hgb Hct MCV MCH MCHC RDW Plt Count Seg Neuts % (Manual) Lymphocytes % (Manual) Seg Neutrophils # Man Lymphocytes # (Manual) Monocytes # (Manual) PT INR D-Dimer ABG pH ABG pO2 ABG HCO3 ABG O2 Saturation ABG Base Excess ABG Hemoglobin Oxyhemoglobin Sodium Potassium Chloride Carbon Dioxide BUN Creatinine Glucose POC Glucose 137 H 108 H 137 H Lactic Acid Calcium Phosphorus Magnesium AST ALT Alkaline Phosphatase Lactate Dehydrogenase Troponin T C-Reactive Protein NT-Pro-B Natriuret Pep Total Protein Albumin LDL Cholesterol Direct Vitamin B12 Crossmatch 11/12/21 11/12/21 11/12/21 05:40 06:24 11:12 WBC RBC Hgb Hct MCV MCH MCHC RDW Plt Count Seg Neuts % (Manual) Lymphocytes % (Manual) Seg Neutrophils # Man Lymphocytes # (Manual) Monocytes # (Manual) PT INR D-Dimer ABG pH 7.586 H ABG pO2 150.6 H ABG HCO3 27.2 H ABG O2 Saturation 99.1 H ABG Base Excess 5.2 H ABG Hemoglobin 7.5 L Oxyhemoglobin Sodium Potassium Chloride Carbon Dioxide BUN Creatinine Glucose POC Glucose 132 H 140 H Lactic Acid Calcium Phosphorus Magnesium AST ALT Alkaline Phosphatase Lactate Dehydrogenase Troponin T C-Reactive Protein NT-Pro-B Natriuret Pep Total Protein Albumin LDL Cholesterol Direct Vitamin B12 Crossmatch 11/12/21 11/12/21 11/12/21 14:50 14:50 17:13 WBC 19.8 H RBC 3.27 L Hgb 7.1 L Hct 24.5 L MCV 75 L MCH 22 L MCHC 29 L RDW 22.3 H Plt Count Seg Neuts % (Manual) Lymphocytes % (Manual) Seg Neutrophils # Man Lymphocytes # (Manual) Monocytes # (Manual) PT INR D-Dimer ABG pH ABG pO2 ABG HCO3 ABG O2 Saturation ABG Base Excess ABG Hemoglobin Oxyhemoglobin Sodium 150 H Potassium 3.3 L Chloride 112.0 H Carbon Dioxide BUN 40 H Creatinine Glucose 151 H POC Glucose 121 H Lactic Acid Calcium 7.4 L Phosphorus 1.70 L Magnesium 1.40 L AST ALT Alkaline Phosphatase Lactate Dehydrogenase Troponin T C-Reactive Protein NT-Pro-B Natriuret Pep Total Protein Albumin LDL Cholesterol Direct Vitamin B12 Crossmatch 11/12/21 11/13/21 11/13/21 23:19 05:34 06:30 WBC RBC Hgb Hct MCV MCH MCHC RDW Plt Count Seg Neuts % (Manual) Lymphocytes % (Manual) Seg Neutrophils # Man Lymphocytes # (Manual) Monocytes # (Manual) PT INR D-Dimer ABG pH ABG pO2 ABG HCO3 ABG O2 Saturation ABG Base Excess ABG Hemoglobin Oxyhemoglobin Sodium 149 H Potassium Chloride 60.0 L Carbon Dioxide BUN 40 H Creatinine Glucose 146 H POC Glucose 113 H 132 H Lactic Acid Calcium 7.3 L Phosphorus Magnesium 2.40 H AST ALT 72 H Alkaline Phosphatase Lactate Dehydrogenase Troponin T C-Reactive Protein NT-Pro-B Natriuret Pep Total Protein 5.2 L Albumin 2.2 L LDL Cholesterol Direct Vitamin B12 Crossmatch 11/13/21 11/13/21 11/13/21 06:30 08:30 11:19 WBC 21.2 H RBC 3.12 L Hgb 6.8 L Hct 23.2 L MCV 74 L MCH 22 L MCHC 29 L RDW 22.2 H Plt Count 135 L Seg Neuts % (Manual) Lymphocytes % (Manual) Seg Neutrophils # Man Lymphocytes # (Manual) Monocytes # (Manual) PT INR D-Dimer ABG pH ABG pO2 ABG HCO3 ABG O2 Saturation ABG Base Excess ABG Hemoglobin Oxyhemoglobin Sodium Potassium Chloride Carbon Dioxide BUN Creatinine Glucose POC Glucose 136 H Lactic Acid Calcium Phosphorus Magnesium AST ALT Alkaline Phosphatase Lactate Dehydrogenase Troponin T C-Reactive Protein NT-Pro-B Natriuret Pep Total Protein Albumin LDL Cholesterol Direct Vitamin B12 Crossmatch See Detail 11/13/21 11/14/21 11/14/21 18:21 00:01 04:46 WBC 20.0 H RBC 3.41 L Hgb 7.9 L Hct 26.8 L MCV MCH 23 L MCHC 29 L RDW 24.0 H Plt Count Seg Neuts % (Manual) Lymphocytes % (Manual) Seg Neutrophils # Man Lymphocytes # (Manual) Monocytes # (Manual) PT INR D-Dimer ABG pH ABG pO2 ABG HCO3 ABG O2 Saturation ABG Base Excess ABG Hemoglobin Oxyhemoglobin Sodium Potassium Chloride Carbon Dioxide BUN Creatinine Glucose POC Glucose 149 H 141 H Lactic Acid Calcium Phosphorus Magnesium AST ALT Alkaline Phosphatase Lactate Dehydrogenase Troponin T C-Reactive Protein NT-Pro-B Natriuret Pep Total Protein Albumin LDL Cholesterol Direct Vitamin B12 Crossmatch 11/14/21 11/14/21 11/14/21 04:46 05:10 11:10 WBC RBC Hgb Hct MCV MCH MCHC RDW Plt Count Seg Neuts % (Manual) Lymphocytes % (Manual) Seg Neutrophils # Man Lymphocytes # (Manual) Monocytes # (Manual) PT INR D-Dimer ABG pH ABG pO2 ABG HCO3 ABG O2 Saturation ABG Base Excess ABG Hemoglobin Oxyhemoglobin Sodium 148 H Potassium Chloride 113.1 H Carbon Dioxide BUN 43 H Creatinine Glucose 140 H POC Glucose 132 H 133 H Lactic Acid Calcium 7.5 L Phosphorus Magnesium AST ALT Alkaline Phosphatase Lactate Dehydrogenase Troponin T C-Reactive Protein NT-Pro-B Natriuret Pep Total Protein Albumin LDL Cholesterol Direct Vitamin B12 Crossmatch 11/14/21 11/14/21 11/14/21 16:14 17:48 23:23 WBC RBC Hgb Hct MCV MCH MCHC RDW Plt Count Seg Neuts % (Manual) Lymphocytes % (Manual) Seg Neutrophils # Man Lymphocytes # (Manual) Monocytes # (Manual) PT INR D-Dimer ABG pH ABG pO2 ABG HCO3 28.0 H ABG O2 Saturation ABG Base Excess 3.1 H ABG Hemoglobin 5.8 L Oxyhemoglobin 94.8 L Sodium Potassium Chloride Carbon Dioxide BUN Creatinine Glucose POC Glucose 130 H 136 H Lactic Acid Calcium Phosphorus Magnesium AST ALT Alkaline Phosphatase Lactate Dehydrogenase Troponin T C-Reactive Protein NT-Pro-B Natriuret Pep Total Protein Albumin LDL Cholesterol Direct Vitamin B12 Crossmatch 11/15/21 11/15/21 11/15/21 05:20 05:50 05:50 WBC 19.9 H RBC 3.50 L Hgb 8.2 L Hct 27.9 L MCV MCH 23 L MCHC 29 L RDW 24.9 H Plt Count Seg Neuts % (Manual) Lymphocytes % (Manual) Seg Neutrophils # Man Lymphocytes # (Manual) Monocytes # (Manual) PT INR D-Dimer ABG pH ABG pO2 ABG HCO3 ABG O2 Saturation ABG Base Excess ABG Hemoglobin Oxyhemoglobin Sodium 149 H Potassium Chloride 112.0 H Carbon Dioxide BUN 48 H Creatinine Glucose 152 H POC Glucose 137 H Lactic Acid Calcium 7.9 L Phosphorus Magnesium AST ALT Alkaline Phosphatase Lactate Dehydrogenase Troponin T C-Reactive Protein NT-Pro-B Natriuret Pep Total Protein Albumin LDL Cholesterol Direct Vitamin B12 Crossmatch 11/15/21 11/15/21 11/15/21 12:12 17:07 23:24 WBC RBC Hgb Hct MCV MCH MCHC RDW Plt Count Seg Neuts % (Manual) Lymphocytes % (Manual) Seg Neutrophils # Man Lymphocytes # (Manual) Monocytes # (Manual) PT INR D-Dimer ABG pH ABG pO2 ABG HCO3 ABG O2 Saturation ABG Base Excess ABG Hemoglobin Oxyhemoglobin Sodium Potassium Chloride Carbon Dioxide BUN Creatinine Glucose POC Glucose 114 H 135 H 123 H Lactic Acid Calcium Phosphorus Magnesium AST ALT Alkaline Phosphatase Lactate Dehydrogenase Troponin T C-Reactive Protein NT-Pro-B Natriuret Pep Total Protein Albumin LDL Cholesterol Direct Vitamin B12 Crossmatch 11/16/21 11/16/21 11/16/21 05:21 10:00 10:00 WBC 21.7 H RBC 2.57 L Hgb 6.0 L Hct 20.2 L D MCV MCH 24 L MCHC RDW 26.3 H Plt Count Seg Neuts % (Manual) Lymphocytes % (Manual) Seg Neutrophils # Man Lymphocytes # (Manual) Monocytes # (Manual) PT INR D-Dimer ABG pH ABG pO2 ABG HCO3 ABG O2 Saturation ABG Base Excess ABG Hemoglobin Oxyhemoglobin Sodium 153 H Potassium Chloride 114.9 H Carbon Dioxide BUN 74 H Creatinine Glucose 155 H POC Glucose 127 H Lactic Acid Calcium 8.1 L Phosphorus Magnesium AST ALT Alkaline Phosphatase Lactate Dehydrogenase Troponin T C-Reactive Protein NT-Pro-B Natriuret Pep Total Protein Albumin LDL Cholesterol Direct Vitamin B12 Crossmatch 11/16/21 11/16/21 11/16/21 11:34 14:00 15:25 WBC 17.2 H RBC 2.08 L Hgb 4.7 L* Hct 16.2 L* MCV 78 L MCH 23 L MCHC 29 L RDW 26.0 H Plt Count Seg Neuts % (Manual) 87.0 H Lymphocytes % (Manual) 8.0 L Seg Neutrophils # Man 15.0 H Lymphocytes # (Manual) Monocytes # (Manual) 0.9 H PT INR D-Dimer ABG pH ABG pO2 ABG HCO3 ABG O2 Saturation ABG Base Excess ABG Hemoglobin Oxyhemoglobin Sodium Potassium Chloride Carbon Dioxide BUN Creatinine Glucose POC Glucose 131 H Lactic Acid Calcium Phosphorus Magnesium AST ALT Alkaline Phosphatase Lactate Dehydrogenase Troponin T C-Reactive Protein NT-Pro-B Natriuret Pep Total Protein Albumin LDL Cholesterol Direct Vitamin B12 Crossmatch See Detail 11/16/21 11/16/21 11/16/21 15:25 17:21 22:43 WBC RBC Hgb 8.6 L D Hct 27.7 L D MCV MCH MCHC RDW Plt Count Seg Neuts % (Manual) Lymphocytes % (Manual) Seg Neutrophils # Man Lymphocytes # (Manual) Monocytes # (Manual) PT INR D-Dimer ABG pH ABG pO2 ABG HCO3 ABG O2 Saturation ABG Base Excess ABG Hemoglobin Oxyhemoglobin Sodium 148 H Potassium Chloride 113.2 H Carbon Dioxide BUN 84 H Creatinine Glucose 164 H POC Glucose 124 H Lactic Acid Calcium 7.6 L Phosphorus Magnesium AST ALT Alkaline Phosphatase Lactate Dehydrogenase Troponin T C-Reactive Protein NT-Pro-B Natriuret Pep Total Protein Albumin LDL Cholesterol Direct Vitamin B12 Crossmatch 11/16/21 11/17/21 11/17/21 23:07 05:33 05:56 WBC 25.1 H RBC 3.47 L Hgb 8.7 L Hct 28.5 L MCV MCH 25 L MCHC RDW 22.3 H Plt Count Seg Neuts % (Manual) Lymphocytes % (Manual) Seg Neutrophils # Man Lymphocytes # (Manual) Monocytes # (Manual) PT INR D-Dimer ABG pH ABG pO2 ABG HCO3 ABG O2 Saturation ABG Base Excess ABG Hemoglobin Oxyhemoglobin Sodium Potassium Chloride Carbon Dioxide BUN Creatinine Glucose POC Glucose 128 H 133 H Lactic Acid Calcium Phosphorus Magnesium AST ALT Alkaline Phosphatase Lactate Dehydrogenase Troponin T C-Reactive Protein NT-Pro-B Natriuret Pep Total Protein Albumin LDL Cholesterol Direct Vitamin B12 Crossmatch 11/17/21 11/17/21 11/17/21 05:56 11:00 11:55 WBC RBC Hgb 8.3 L Hct 26.9 L MCV MCH MCHC RDW Plt Count Seg Neuts % (Manual) Lymphocytes % (Manual) Seg Neutrophils # Man Lymphocytes # (Manual) Monocytes # (Manual) PT INR D-Dimer ABG pH ABG pO2 ABG HCO3 ABG O2 Saturation ABG Base Excess ABG Hemoglobin Oxyhemoglobin Sodium 151 H Potassium Chloride 113.6 H Carbon Dioxide BUN 85 H Creatinine Glucose 132 H POC Glucose 121 H Lactic Acid Calcium 7.8 L Phosphorus Magnesium AST ALT Alkaline Phosphatase Lactate Dehydrogenase Troponin T C-Reactive Protein NT-Pro-B Natriuret Pep Total Protein 5.1 L Albumin 2.2 L LDL Cholesterol Direct Vitamin B12 Crossmatch 11/17/21 11/17/21 11/18/21 18:04 18:55 00:26 WBC RBC Hgb 7.5 L 7.1 L Hct 24.8 L 23.6 L MCV MCH MCHC RDW Plt Count Seg Neuts % (Manual) Lymphocytes % (Manual) Seg Neutrophils # Man Lymphocytes # (Manual) Monocytes # (Manual) PT INR D-Dimer ABG pH ABG pO2 ABG HCO3 ABG O2 Saturation ABG Base Excess ABG Hemoglobin Oxyhemoglobin Sodium Potassium Chloride Carbon Dioxide BUN Creatinine Glucose POC Glucose 144 H Lactic Acid Calcium Phosphorus Magnesium AST ALT Alkaline Phosphatase Lactate Dehydrogenase Troponin T C-Reactive Protein NT-Pro-B Natriuret Pep Total Protein Albumin LDL Cholesterol Direct Vitamin B12 Crossmatch 11/18/21 11/18/21 11/18/21 00:43 05:10 05:10 WBC 12.5 H RBC 2.39 L Hgb 6.1 L Hct 20.2 L MCV MCH 25 L MCHC RDW 23.2 H Plt Count Seg Neuts % (Manual) Lymphocytes % (Manual) Seg Neutrophils # Man Lymphocytes # (Manual) Monocytes # (Manual) PT INR D-Dimer ABG pH ABG pO2 ABG HCO3 ABG O2 Saturation ABG Base Excess ABG Hemoglobin Oxyhemoglobin Sodium 131 L D Potassium 2.9 L* D Chloride 97.8 L Carbon Dioxide BUN 58 H Creatinine Glucose 665 H* POC Glucose 139 H Lactic Acid Calcium 7.0 L Phosphorus 2.20 L D Magnesium 1.50 L AST ALT Alkaline Phosphatase Lactate Dehydrogenase Troponin T C-Reactive Protein NT-Pro-B Natriuret Pep Total Protein Albumin LDL Cholesterol Direct Vitamin B12 Crossmatch 11/18/21 11/18/21 11/18/21 05:23 07:10 10:45 WBC RBC Hgb Hct MCV MCH MCHC RDW Plt Count Seg Neuts % (Manual) Lymphocytes % (Manual) Seg Neutrophils # Man Lymphocytes # (Manual) Monocytes # (Manual) PT INR D-Dimer ABG pH ABG pO2 ABG HCO3 ABG O2 Saturation ABG Base Excess ABG Hemoglobin Oxyhemoglobin Sodium 148 H D Potassium 3.1 L Chloride 111.9 H Carbon Dioxide BUN 63 H Creatinine Glucose 141 H POC Glucose 124 H Lactic Acid Calcium 8.1 L D Phosphorus Magnesium AST ALT Alkaline Phosphatase Lactate Dehydrogenase Troponin T C-Reactive Protein NT-Pro-B Natriuret Pep Total Protein Albumin LDL Cholesterol Direct Vitamin B12 Crossmatch See Detail 11/18/21 11/19/21 11/19/21 11:57 00:19 04:55 WBC RBC 3.35 L Hgb 9.0 L 8.9 L Hct 28.3 L D 28.1 L MCV MCH 27 L MCHC RDW 20.3 H Plt Count Seg Neuts % (Manual) Lymphocytes % (Manual) Seg Neutrophils # Man Lymphocytes # (Manual) Monocytes # (Manual) PT INR D-Dimer ABG pH ABG pO2 ABG HCO3 ABG O2 Saturation ABG Base Excess ABG Hemoglobin Oxyhemoglobin Sodium Potassium Chloride Carbon Dioxide BUN Creatinine Glucose POC Glucose 119 H Lactic Acid Calcium Phosphorus Magnesium AST ALT Alkaline Phosphatase Lactate Dehydrogenase Troponin T C-Reactive Protein NT-Pro-B Natriuret Pep Total Protein Albumin LDL Cholesterol Direct Vitamin B12 Crossmatch 11/19/21 11/19/21 11/20/21 04:55 05:42 00:55 WBC RBC Hgb 9.0 L Hct 28.6 L MCV MCH MCHC RDW Plt Count Seg Neuts % (Manual) Lymphocytes % (Manual) Seg Neutrophils # Man Lymphocytes # (Manual) Monocytes # (Manual) PT INR D-Dimer ABG pH ABG pO2 ABG HCO3 ABG O2 Saturation ABG Base Excess ABG Hemoglobin Oxyhemoglobin Sodium Potassium 3.5 L Chloride 108.6 H Carbon Dioxide BUN 47 H Creatinine Glucose 207 H POC Glucose 63 L Lactic Acid Calcium 7.1 L Phosphorus Magnesium AST ALT Alkaline Phosphatase Lactate Dehydrogenase Troponin T C-Reactive Protein NT-Pro-B Natriuret Pep Total Protein Albumin LDL Cholesterol Direct Vitamin B12 Crossmatch 11/20/21 11/20/21 11/20/21 05:40 05:40 Unknown WBC RBC 3.40 L Hgb 9.1 L Hct 28.8 L MCV MCH 27 L MCHC RDW 20.7 H Plt Count Seg Neuts % (Manual) Lymphocytes % (Manual) Seg Neutrophils # Man Lymphocytes # (Manual) Monocytes # (Manual) PT INR D-Dimer ABG pH ABG pO2 ABG HCO3 ABG O2 Saturation ABG Base Excess -2.7 L ABG Hemoglobin 9.5 L Oxyhemoglobin 94.3 L Sodium Potassium 3.5 L Chloride 108.9 H Carbon Dioxide BUN 37 H Creatinine Glucose 117 H POC Glucose Lactic Acid Calcium 7.5 L Phosphorus Magnesium AST ALT Alkaline Phosphatase Lactate Dehydrogenase Troponin T C-Reactive Protein NT-Pro-B Natriuret Pep Total Protein Albumin LDL Cholesterol Direct Vitamin B12 Crossmatch 11/21/21 11/21/21 11/21/21 04:30 04:30 16:00 WBC RBC 3.25 L Hgb 8.6 L Hct 28.1 L MCV MCH 26 L MCHC RDW 20.7 H Plt Count Seg Neuts % (Manual) Lymphocytes % (Manual) Seg Neutrophils # Man Lymphocytes # (Manual) Monocytes # (Manual) PT INR D-Dimer ABG pH ABG pO2 114.2 H ABG HCO3 ABG O2 Saturation ABG Base Excess ABG Hemoglobin 9.1 L Oxyhemoglobin Sodium 134 L Potassium Chloride Carbon Dioxide 20 L BUN 34 H Creatinine Glucose POC Glucose Lactic Acid Calcium 7.1 L Phosphorus Magnesium AST ALT Alkaline Phosphatase Lactate Dehydrogenase Troponin T C-Reactive Protein NT-Pro-B Natriuret Pep Total Protein Albumin LDL Cholesterol Direct Vitamin B12 Crossmatch 11/22/21 11/22/21 11/22/21 07:07 07:07 23:54 WBC RBC 3.30 L Hgb 9.0 L Hct 28.5 L MCV MCH 27 L MCHC RDW 21.0 H Plt Count Seg Neuts % (Manual) Lymphocytes % (Manual) Seg Neutrophils # Man Lymphocytes # (Manual) Monocytes # (Manual) PT INR D-Dimer ABG pH ABG pO2 ABG HCO3 ABG O2 Saturation ABG Base Excess ABG Hemoglobin Oxyhemoglobin Sodium Potassium Chloride Carbon Dioxide BUN 32 H Creatinine Glucose 106 H POC Glucose 110 H Lactic Acid Calcium 7.5 L Phosphorus Magnesium AST ALT Alkaline Phosphatase Lactate Dehydrogenase Troponin T C-Reactive Protein NT-Pro-B Natriuret Pep Total Protein Albumin LDL Cholesterol Direct Vitamin B12 Crossmatch 11/23/21 11/23/21 11/23/21 04:38 04:38 06:01 WBC RBC 3.23 L Hgb 8.8 L Hct 28.0 L MCV MCH 27 L MCHC RDW 21.3 H Plt Count Seg Neuts % (Manual) Lymphocytes % (Manual) Seg Neutrophils # Man Lymphocytes # (Manual) Monocytes # (Manual) PT INR D-Dimer ABG pH ABG pO2 ABG HCO3 ABG O2 Saturation ABG Base Excess ABG Hemoglobin Oxyhemoglobin Sodium 136 L Potassium Chloride Carbon Dioxide 20 L BUN 32 H Creatinine Glucose 109 H POC Glucose 115 H Lactic Acid Calcium 7.7 L Phosphorus Magnesium AST ALT Alkaline Phosphatase Lactate Dehydrogenase Troponin T C-Reactive Protein NT-Pro-B Natriuret Pep Total Protein Albumin LDL Cholesterol Direct Vitamin B12 Crossmatch 11/23/21 11/24/21 11/24/21 11:40 00:03 04:13 WBC RBC 3.18 L Hgb 8.5 L Hct 27.5 L MCV MCH 27 L MCHC RDW 21.6 H Plt Count Seg Neuts % (Manual) Lymphocytes % (Manual) Seg Neutrophils # Man Lymphocytes # (Manual) Monocytes # (Manual) PT INR D-Dimer ABG pH ABG pO2 ABG HCO3 ABG O2 Saturation ABG Base Excess ABG Hemoglobin Oxyhemoglobin Sodium Potassium Chloride Carbon Dioxide BUN Creatinine Glucose POC Glucose 117 H 111 H Lactic Acid Calcium Phosphorus Magnesium AST ALT Alkaline Phosphatase Lactate Dehydrogenase Troponin T C-Reactive Protein NT-Pro-B Natriuret Pep Total Protein Albumin LDL Cholesterol Direct Vitamin B12 Crossmatch 11/24/21 11/24/21 11/24/21 04:13 05:30 11:10 WBC RBC Hgb Hct MCV MCH MCHC RDW Plt Count Seg Neuts % (Manual) Lymphocytes % (Manual) Seg Neutrophils # Man Lymphocytes # (Manual) Monocytes # (Manual) PT INR D-Dimer ABG pH ABG pO2 ABG HCO3 ABG O2 Saturation ABG Base Excess ABG Hemoglobin Oxyhemoglobin Sodium Potassium Chloride Carbon Dioxide BUN 31 H Creatinine Glucose 101 H POC Glucose 115 H 107 H Lactic Acid Calcium 7.7 L Phosphorus Magnesium AST ALT Alkaline Phosphatase Lactate Dehydrogenase Troponin T C-Reactive Protein NT-Pro-B Natriuret Pep Total Protein Albumin LDL Cholesterol Direct Vitamin B12 Crossmatch 11/24/21 11/24/21 11/25/21 16:34 17:57 05:12 WBC RBC 3.11 L Hgb 8.2 L Hct 26.6 L MCV MCH 26 L MCHC RDW 21.3 H Plt Count Seg Neuts % (Manual) Lymphocytes % (Manual) Seg Neutrophils # Man Lymphocytes # (Manual) Monocytes # (Manual) PT INR D-Dimer ABG pH ABG pO2 ABG HCO3 ABG O2 Saturation ABG Base Excess ABG Hemoglobin Oxyhemoglobin Sodium Potassium Chloride Carbon Dioxide BUN Creatinine Glucose POC Glucose 115 H 110 H Lactic Acid Calcium Phosphorus Magnesium AST ALT Alkaline Phosphatase Lactate Dehydrogenase Troponin T C-Reactive Protein NT-Pro-B Natriuret Pep Total Protein Albumin LDL Cholesterol Direct Vitamin B12 Crossmatch 11/25/21 11/25/21 11/26/21 05:12 11:20 05:00 WBC RBC 3.30 L Hgb 8.8 L Hct 28.2 L MCV MCH 27 L MCHC RDW 20.7 H Plt Count Seg Neuts % (Manual) Lymphocytes % (Manual) Seg Neutrophils # Man Lymphocytes # (Manual) Monocytes # (Manual) PT INR D-Dimer ABG pH ABG pO2 ABG HCO3 ABG O2 Saturation ABG Base Excess ABG Hemoglobin Oxyhemoglobin Sodium Potassium Chloride Carbon Dioxide BUN 32 H Creatinine Glucose 118 H POC Glucose 118 H Lactic Acid Calcium 8.2 L Phosphorus Magnesium AST ALT Alkaline Phosphatase Lactate Dehydrogenase Troponin T C-Reactive Protein NT-Pro-B Natriuret Pep Total Protein Albumin LDL Cholesterol Direct Vitamin B12 Crossmatch 11/26/21 11/26/21 11/26/21 05:00 05:00 05:44 WBC RBC Hgb Hct MCV MCH MCHC RDW Plt Count Seg Neuts % (Manual) Lymphocytes % (Manual) Seg Neutrophils # Man Lymphocytes # (Manual) Monocytes # (Manual) PT 16.9 H INR 1.24 H D-Dimer ABG pH ABG pO2 ABG HCO3 ABG O2 Saturation ABG Base Excess ABG Hemoglobin Oxyhemoglobin Sodium Potassium Chloride Carbon Dioxide BUN 31 H Creatinine Glucose 104 H POC Glucose 110 H Lactic Acid Calcium 7.9 L Phosphorus Magnesium AST ALT Alkaline Phosphatase Lactate Dehydrogenase Troponin T C-Reactive Protein NT-Pro-B Natriuret Pep Total Protein Albumin LDL Cholesterol Direct Vitamin B12 Crossmatch 11/26/21 11/27/21 11/27/21 23:55 07:40 07:40 WBC RBC 3.18 L Hgb 8.5 L Hct 27.0 L MCV MCH 27 L MCHC RDW 21.2 H Plt Count Seg Neuts % (Manual) Lymphocytes % (Manual) Seg Neutrophils # Man Lymphocytes # (Manual) Monocytes # (Manual) PT INR D-Dimer ABG pH ABG pO2 ABG HCO3 ABG O2 Saturation ABG Base Excess ABG Hemoglobin Oxyhemoglobin Sodium Potassium Chloride Carbon Dioxide BUN 27 H Creatinine Glucose 112 H POC Glucose 63 L Lactic Acid Calcium 7.6 L Phosphorus Magnesium AST ALT Alkaline Phosphatase Lactate Dehydrogenase Troponin T C-Reactive Protein NT-Pro-B Natriuret Pep Total Protein Albumin LDL Cholesterol Direct Vitamin B12 Crossmatch 11/27/21 11/27/21 11/27/21 12:04 13:40 13:40 WBC RBC 3.31 L Hgb 8.7 L Hct 28.0 L MCV MCH 26 L MCHC RDW 20.7 H Plt Count Seg Neuts % (Manual) Lymphocytes % (Manual) Seg Neutrophils # Man Lymphocytes # (Manual) Monocytes # (Manual) PT INR D-Dimer ABG pH ABG pO2 ABG HCO3 ABG O2 Saturation ABG Base Excess ABG Hemoglobin Oxyhemoglobin Sodium 136 L Potassium Chloride Carbon Dioxide BUN 25 H Creatinine Glucose 127 H POC Glucose 109 H Lactic Acid Calcium 7.6 L Phosphorus Magnesium 1.40 L AST ALT Alkaline Phosphatase Lactate Dehydrogenase Troponin T C-Reactive Protein NT-Pro-B Natriuret Pep Total Protein Albumin LDL Cholesterol Direct Vitamin B12 Crossmatch 11/27/21 11/27/21 11/28/21 17:44 23:33 12:20 WBC RBC Hgb Hct MCV MCH MCHC RDW Plt Count Seg Neuts % (Manual) Lymphocytes % (Manual) Seg Neutrophils # Man Lymphocytes # (Manual) Monocytes # (Manual) PT INR D-Dimer ABG pH ABG pO2 ABG HCO3 ABG O2 Saturation ABG Base Excess ABG Hemoglobin Oxyhemoglobin Sodium Potassium Chloride Carbon Dioxide BUN Creatinine Glucose POC Glucose 107 H 108 H 114 H Lactic Acid Calcium Phosphorus Magnesium AST ALT Alkaline Phosphatase Lactate Dehydrogenase Troponin T C-Reactive Protein NT-Pro-B Natriuret Pep Total Protein Albumin LDL Cholesterol Direct Vitamin B12 Crossmatch 11/29/21 11/29/21 11/29/21 00:09 03:20 03:20 WBC RBC 3.05 L Hgb 8.2 L Hct 25.8 L MCV MCH 27 L MCHC RDW 20.9 H Plt Count Seg Neuts % (Manual) Lymphocytes % (Manual) Seg Neutrophils # Man Lymphocytes # (Manual) Monocytes # (Manual) PT INR D-Dimer ABG pH ABG pO2 ABG HCO3 ABG O2 Saturation ABG Base Excess ABG Hemoglobin Oxyhemoglobin Sodium 133 L Potassium Chloride Carbon Dioxide BUN 24 H Creatinine Glucose 137 H POC Glucose 134 H Lactic Acid Calcium 7.4 L Phosphorus Magnesium AST ALT Alkaline Phosphatase Lactate Dehydrogenase Troponin T C-Reactive Protein NT-Pro-B Natriuret Pep Total Protein Albumin LDL Cholesterol Direct Vitamin B12 Crossmatch 11/29/21 11/29/21 11/29/21 05:38 11:39 17:11 WBC RBC Hgb Hct MCV MCH MCHC RDW Plt Count Seg Neuts % (Manual) Lymphocytes % (Manual) Seg Neutrophils # Man Lymphocytes # (Manual) Monocytes # (Manual) PT INR D-Dimer ABG pH ABG pO2 ABG HCO3 ABG O2 Saturation ABG Base Excess ABG Hemoglobin Oxyhemoglobin Sodium Potassium Chloride Carbon Dioxide BUN Creatinine Glucose POC Glucose 117 H 143 H 124 H Lactic Acid Calcium Phosphorus Magnesium AST ALT Alkaline Phosphatase Lactate Dehydrogenase Troponin T C-Reactive Protein NT-Pro-B Natriuret Pep Total Protein Albumin LDL Cholesterol Direct Vitamin B12 Crossmatch 11/29/21 11/30/21 11/30/21 20:15 05:40 05:40 WBC 12.6 H RBC 3.41 L Hgb 9.1 L Hct 28.9 L MCV MCH 27 L MCHC RDW 20.4 H Plt Count Seg Neuts % (Manual) Lymphocytes % (Manual) Seg Neutrophils # Man Lymphocytes # (Manual) Monocytes # (Manual) PT INR D-Dimer ABG pH ABG pO2 ABG HCO3 ABG O2 Saturation ABG Base Excess ABG Hemoglobin Oxyhemoglobin Sodium Potassium Chloride Carbon Dioxide BUN 24 H Creatinine Glucose 131 H POC Glucose Lactic Acid Calcium 7.6 L Phosphorus Magnesium AST ALT Alkaline Phosphatase Lactate Dehydrogenase Troponin T 0.045 H C-Reactive Protein NT-Pro-B Natriuret Pep Total Protein Albumin LDL Cholesterol Direct 25 L Vitamin B12 Crossmatch 11/30/21 11/30/21 12/01/21 11:29 16:51 05:00 WBC RBC 2.97 L Hgb 8.0 L Hct 25.0 L MCV MCH 27 L MCHC RDW 20.8 H Plt Count Seg Neuts % (Manual) Lymphocytes % (Manual) Seg Neutrophils # Man Lymphocytes # (Manual) Monocytes # (Manual) PT INR D-Dimer ABG pH ABG pO2 ABG HCO3 ABG O2 Saturation ABG Base Excess ABG Hemoglobin Oxyhemoglobin Sodium Potassium Chloride Carbon Dioxide BUN Creatinine Glucose POC Glucose 123 H 114 H Lactic Acid Calcium Phosphorus Magnesium AST ALT Alkaline Phosphatase Lactate Dehydrogenase Troponin T C-Reactive Protein NT-Pro-B Natriuret Pep Total Protein Albumin LDL Cholesterol Direct Vitamin B12 Crossmatch 12/01/21 12/01/21 12/01/21 05:00 05:25 11:54 WBC RBC Hgb Hct MCV MCH MCHC RDW Plt Count Seg Neuts % (Manual) Lymphocytes % (Manual) Seg Neutrophils # Man Lymphocytes # (Manual) Monocytes # (Manual) PT INR D-Dimer ABG pH ABG pO2 ABG HCO3 ABG O2 Saturation ABG Base Excess ABG Hemoglobin Oxyhemoglobin Sodium 136 L Potassium Chloride Carbon Dioxide BUN 24 H Creatinine Glucose 117 H POC Glucose 108 H 107 H Lactic Acid Calcium 7.5 L Phosphorus Magnesium 1.60 L AST ALT Alkaline Phosphatase Lactate Dehydrogenase Troponin T C-Reactive Protein NT-Pro-B Natriuret Pep Total Protein Albumin LDL Cholesterol Direct Vitamin B12 Crossmatch 12/01/21 12/02/21 12/02/21 17:40 00:07 04:20 WBC RBC 2.92 L Hgb 7.7 L Hct 24.3 L MCV MCH 26 L MCHC RDW 20.5 H Plt Count Seg Neuts % (Manual) Lymphocytes % (Manual) Seg Neutrophils # Man Lymphocytes # (Manual) Monocytes # (Manual) PT INR D-Dimer ABG pH ABG pO2 ABG HCO3 ABG O2 Saturation ABG Base Excess ABG Hemoglobin Oxyhemoglobin Sodium Potassium Chloride Carbon Dioxide BUN Creatinine Glucose POC Glucose 123 H 110 H Lactic Acid Calcium Phosphorus Magnesium AST ALT Alkaline Phosphatase Lactate Dehydrogenase Troponin T C-Reactive Protein NT-Pro-B Natriuret Pep Total Protein Albumin LDL Cholesterol Direct Vitamin B12 Crossmatch 12/02/21 12/02/21 12/02/21 04:20 11:17 18:20 WBC RBC Hgb Hct MCV MCH MCHC RDW Plt Count Seg Neuts % (Manual) Lymphocytes % (Manual) Seg Neutrophils # Man Lymphocytes # (Manual) Monocytes # (Manual) PT INR D-Dimer ABG pH ABG pO2 ABG HCO3 ABG O2 Saturation ABG Base Excess ABG Hemoglobin Oxyhemoglobin Sodium 135 L Potassium Chloride Carbon Dioxide BUN 26 H Creatinine Glucose 121 H POC Glucose 117 H 113 H Lactic Acid Calcium 7.4 L Phosphorus Magnesium AST ALT Alkaline Phosphatase Lactate Dehydrogenase Troponin T C-Reactive Protein NT-Pro-B Natriuret Pep Total Protein Albumin LDL Cholesterol Direct Vitamin B12 Crossmatch 12/03/21 12/03/21 12/03/21 00:12 04:00 04:00 WBC RBC 2.99 L Hgb 7.8 L Hct 24.6 L MCV MCH 26 L MCHC RDW 20.2 H Plt Count Seg Neuts % (Manual) Lymphocytes % (Manual) Seg Neutrophils # Man Lymphocytes # (Manual) Monocytes # (Manual) PT INR D-Dimer ABG pH ABG pO2 ABG HCO3 ABG O2 Saturation ABG Base Excess ABG Hemoglobin Oxyhemoglobin Sodium 136 L Potassium Chloride Carbon Dioxide BUN 27 H Creatinine Glucose 133 H POC Glucose 121 H Lactic Acid Calcium 7.5 L Phosphorus Magnesium AST ALT Alkaline Phosphatase Lactate Dehydrogenase Troponin T C-Reactive Protein NT-Pro-B Natriuret Pep Total Protein Albumin LDL Cholesterol Direct Vitamin B12 Crossmatch 12/03/21 12/03/21 12/03/21 06:30 11:13 16:00 WBC RBC Hgb Hct MCV MCH MCHC RDW Plt Count Seg Neuts % (Manual) Lymphocytes % (Manual) Seg Neutrophils # Man Lymphocytes # (Manual) Monocytes # (Manual) PT INR D-Dimer ABG pH ABG pO2 ABG HCO3 ABG O2 Saturation ABG Base Excess ABG Hemoglobin Oxyhemoglobin Sodium Potassium Chloride Carbon Dioxide BUN Creatinine Glucose POC Glucose 129 H 125 H 125 H Lactic Acid Calcium Phosphorus Magnesium AST ALT Alkaline Phosphatase Lactate Dehydrogenase Troponin T C-Reactive Protein NT-Pro-B Natriuret Pep Total Protein Albumin LDL Cholesterol Direct Vitamin B12 Crossmatch 12/03/21 12/04/21 12/04/21 23:32 04:00 05:36 WBC RBC Hgb Hct MCV MCH MCHC RDW Plt Count Seg Neuts % (Manual) Lymphocytes % (Manual) Seg Neutrophils # Man Lymphocytes # (Manual) Monocytes # (Manual) PT INR D-Dimer ABG pH ABG pO2 ABG HCO3 ABG O2 Saturation ABG Base Excess ABG Hemoglobin Oxyhemoglobin Sodium Potassium 3.5 L Chloride Carbon Dioxide BUN 26 H Creatinine 0.5 L Glucose 151 H POC Glucose 133 H 142 H Lactic Acid Calcium 8.3 L Phosphorus Magnesium AST ALT Alkaline Phosphatase Lactate Dehydrogenase Troponin T C-Reactive Protein NT-Pro-B Natriuret Pep Total Protein Albumin LDL Cholesterol Direct Vitamin B12 Crossmatch 12/04/21 12/04/21 12/05/21 11:24 15:58 04:36 WBC RBC Hgb Hct MCV MCH MCHC RDW Plt Count Seg Neuts % (Manual) Lymphocytes % (Manual) Seg Neutrophils # Man Lymphocytes # (Manual) Monocytes # (Manual) PT INR D-Dimer ABG pH ABG pO2 ABG HCO3 ABG O2 Saturation ABG Base Excess ABG Hemoglobin Oxyhemoglobin Sodium Potassium Chloride Carbon Dioxide BUN 21 H Creatinine 0.5 L Glucose 119 H POC Glucose 130 H 111 H Lactic Acid Calcium 8.3 L Phosphorus Magnesium AST ALT Alkaline Phosphatase Lactate Dehydrogenase Troponin T C-Reactive Protein NT-Pro-B Natriuret Pep Total Protein Albumin LDL Cholesterol Direct Vitamin B12 Crossmatch 12/05/21 12/05/21 12/05/21 05:15 10:40 11:12 WBC RBC 2.98 L Hgb 8.1 L Hct 24.6 L MCV MCH 27 L MCHC RDW 20.8 H Plt Count Seg Neuts % (Manual) Lymphocytes % (Manual) Seg Neutrophils # Man Lymphocytes # (Manual) Monocytes # (Manual) PT INR D-Dimer ABG pH ABG pO2 ABG HCO3 ABG O2 Saturation ABG Base Excess ABG Hemoglobin Oxyhemoglobin Sodium Potassium Chloride Carbon Dioxide BUN Creatinine Glucose POC Glucose 107 H 110 H Lactic Acid Calcium Phosphorus Magnesium AST ALT Alkaline Phosphatase Lactate Dehydrogenase Troponin T C-Reactive Protein NT-Pro-B Natriuret Pep Total Protein Albumin LDL Cholesterol Direct Vitamin B12 Crossmatch 12/05/21 12/06/21 12/06/21 23:39 04:25 04:25 WBC RBC 2.95 L Hgb 7.9 L Hct 24.7 L MCV MCH 27 L MCHC RDW 20.9 H Plt Count Seg Neuts % (Manual) Lymphocytes % (Manual) Seg Neutrophils # Man Lymphocytes # (Manual) Monocytes # (Manual) PT INR D-Dimer ABG pH ABG pO2 ABG HCO3 ABG O2 Saturation ABG Base Excess ABG Hemoglobin Oxyhemoglobin Sodium Potassium Chloride Carbon Dioxide BUN 22 H Creatinine 0.5 L Glucose 136 H POC Glucose 118 H Lactic Acid Calcium 8.2 L Phosphorus Magnesium AST ALT Alkaline Phosphatase Lactate Dehydrogenase Troponin T C-Reactive Protein NT-Pro-B Natriuret Pep Total Protein Albumin LDL Cholesterol Direct Vitamin B12 Crossmatch 12/06/21 12/06/21 12/07/21 05:28 11:27 04:00 WBC RBC Hgb 7.2 L Hct 21.8 L MCV MCH MCHC RDW Plt Count Seg Neuts % (Manual) Lymphocytes % (Manual) Seg Neutrophils # Man Lymphocytes # (Manual) Monocytes # (Manual) PT INR D-Dimer ABG pH ABG pO2 ABG HCO3 ABG O2 Saturation ABG Base Excess ABG Hemoglobin Oxyhemoglobin Sodium Potassium Chloride Carbon Dioxide BUN Creatinine Glucose POC Glucose 142 H 126 H Lactic Acid Calcium Phosphorus Magnesium AST ALT Alkaline Phosphatase Lactate Dehydrogenase Troponin T C-Reactive Protein NT-Pro-B Natriuret Pep Total Protein Albumin LDL Cholesterol Direct Vitamin B12 Crossmatch 12/07/21 12/07/21 12/07/21 04:00 05:30 11:12 WBC RBC Hgb Hct MCV MCH MCHC RDW Plt Count Seg Neuts % (Manual) Lymphocytes % (Manual) Seg Neutrophils # Man Lymphocytes # (Manual) Monocytes # (Manual) PT INR D-Dimer ABG pH ABG pO2 ABG HCO3 ABG O2 Saturation ABG Base Excess ABG Hemoglobin Oxyhemoglobin Sodium Potassium Chloride Carbon Dioxide BUN 22 H Creatinine Glucose 119 H POC Glucose 121 H 124 H Lactic Acid Calcium 8.0 L Phosphorus Magnesium AST ALT Alkaline Phosphatase Lactate Dehydrogenase Troponin T C-Reactive Protein NT-Pro-B Natriuret Pep Total Protein Albumin LDL Cholesterol Direct Vitamin B12 Crossmatch 12/08/21 12/08/21 12/08/21 04:00 04:00 05:39 WBC RBC 2.81 L Hgb 7.7 L Hct 23.5 L MCV MCH MCHC RDW 21.2 H Plt Count Seg Neuts % (Manual) Lymphocytes % (Manual) Seg Neutrophils # Man Lymphocytes # (Manual) Monocytes # (Manual) PT INR D-Dimer ABG pH ABG pO2 ABG HCO3 ABG O2 Saturation ABG Base Excess ABG Hemoglobin Oxyhemoglobin Sodium 135 L Potassium Chloride Carbon Dioxide BUN 23 H Creatinine Glucose 109 H POC Glucose 112 H Lactic Acid Calcium Phosphorus Magnesium AST ALT Alkaline Phosphatase Lactate Dehydrogenase Troponin T C-Reactive Protein NT-Pro-B Natriuret Pep Total Protein Albumin LDL Cholesterol Direct Vitamin B12 Crossmatch 12/08/21 12/09/21 12/09/21 11:03 04:20 04:20 WBC RBC 2.67 L Hgb 7.6 L Hct 22.1 L MCV MCH MCHC RDW 20.8 H Plt Count Seg Neuts % (Manual) Lymphocytes % (Manual) Seg Neutrophils # Man Lymphocytes # (Manual) Monocytes # (Manual) PT INR D-Dimer ABG pH ABG pO2 ABG HCO3 ABG O2 Saturation ABG Base Excess ABG Hemoglobin Oxyhemoglobin Sodium 135 L Potassium Chloride 97.8 L Carbon Dioxide BUN 26 H Creatinine Glucose 119 H POC Glucose 108 H Lactic Acid Calcium 7.7 L Phosphorus Magnesium AST ALT Alkaline Phosphatase Lactate Dehydrogenase Troponin T C-Reactive Protein NT-Pro-B Natriuret Pep Total Protein Albumin LDL Cholesterol Direct Vitamin B12 Crossmatch 12/09/21 12/10/21 12/10/21 11:26 04:33 11:12 WBC RBC Hgb Hct MCV MCH MCHC RDW Plt Count Seg Neuts % (Manual) Lymphocytes % (Manual) Seg Neutrophils # Man Lymphocytes # (Manual) Monocytes # (Manual) PT INR D-Dimer ABG pH ABG pO2 ABG HCO3 ABG O2 Saturation ABG Base Excess ABG Hemoglobin Oxyhemoglobin Sodium 136 L Potassium Chloride Carbon Dioxide BUN 27 H Creatinine Glucose 117 H POC Glucose 110 H 117 H Lactic Acid Calcium 8.2 L Phosphorus Magnesium AST ALT Alkaline Phosphatase Lactate Dehydrogenase Troponin T C-Reactive Protein NT-Pro-B Natriuret Pep Total Protein Albumin LDL Cholesterol Direct Vitamin B12 Crossmatch 12/10/21 12/10/21 12/11/21 16:02 23:31 04:35 WBC RBC 2.57 L Hgb 7.0 L Hct 21.4 L MCV MCH 27 L MCHC RDW 21.1 H Plt Count Seg Neuts % (Manual) Lymphocytes % (Manual) Seg Neutrophils # Man Lymphocytes # (Manual) Monocytes # (Manual) PT INR D-Dimer ABG pH ABG pO2 ABG HCO3 ABG O2 Saturation ABG Base Excess ABG Hemoglobin Oxyhemoglobin Sodium Potassium Chloride Carbon Dioxide BUN Creatinine Glucose POC Glucose 137 H 111 H Lactic Acid Calcium Phosphorus Magnesium AST ALT Alkaline Phosphatase Lactate Dehydrogenase Troponin T C-Reactive Protein NT-Pro-B Natriuret Pep Total Protein Albumin LDL Cholesterol Direct Vitamin B12 Crossmatch 12/11/21 12/11/21 12/11/21 04:35 12:46 16:07 WBC RBC Hgb Hct MCV MCH MCHC RDW Plt Count Seg Neuts % (Manual) Lymphocytes % (Manual) Seg Neutrophils # Man Lymphocytes # (Manual) Monocytes # (Manual) PT INR D-Dimer ABG pH ABG pO2 ABG HCO3 ABG O2 Saturation ABG Base Excess ABG Hemoglobin Oxyhemoglobin Sodium 136 L Potassium Chloride Carbon Dioxide BUN 27 H Creatinine Glucose 112 H POC Glucose 115 H 111 H Lactic Acid Calcium 7.6 L Phosphorus Magnesium AST ALT Alkaline Phosphatase Lactate Dehydrogenase Troponin T C-Reactive Protein NT-Pro-B Natriuret Pep Total Protein Albumin LDL Cholesterol Direct Vitamin B12 Crossmatch 12/11/21 12/12/21 12/12/21 23:42 04:30 04:30 WBC RBC 2.60 L Hgb 7.1 L Hct 21.5 L MCV MCH 27 L MCHC RDW 20.3 H Plt Count Seg Neuts % (Manual) Lymphocytes % (Manual) Seg Neutrophils # Man Lymphocytes # (Manual) Monocytes # (Manual) PT INR D-Dimer ABG pH ABG pO2 ABG HCO3 ABG O2 Saturation ABG Base Excess ABG Hemoglobin Oxyhemoglobin Sodium 135 L Potassium Chloride 97.9 L Carbon Dioxide BUN 26 H Creatinine 0.5 L Glucose 138 H POC Glucose 115 H Lactic Acid Calcium 8.2 L Phosphorus Magnesium AST ALT Alkaline Phosphatase Lactate Dehydrogenase Troponin T C-Reactive Protein NT-Pro-B Natriuret Pep Total Protein Albumin LDL Cholesterol Direct Vitamin B12 Crossmatch 12/12/21 12/12/21 05:10 11:51 WBC RBC Hgb Hct MCV MCH MCHC RDW Plt Count Seg Neuts % (Manual) Lymphocytes % (Manual) Seg Neutrophils # Man Lymphocytes # (Manual) Monocytes # (Manual) PT INR D-Dimer ABG pH ABG pO2 ABG HCO3 ABG O2 Saturation ABG Base Excess ABG Hemoglobin Oxyhemoglobin Sodium Potassium Chloride Carbon Dioxide BUN Creatinine Glucose POC Glucose 119 H 119 H Lactic Acid Calcium Phosphorus Magnesium AST ALT Alkaline Phosphatase Lactate Dehydrogenase Troponin T C-Reactive Protein NT-Pro-B Natriuret Pep Total Protein Albumin LDL Cholesterol Direct Vitamin B12 Crossmatch Allied health notes reviewed: nursing
[2021-12-12] MEDS: METOPROLOL TARTRATE 25 MG TAB PO SCH ×2 (13:05→22:18)
--- NOTE | 2021-12-12 17:07 | Progress Note ---
<MAYCOLJASBIR MorelMarissa - Last Filed: 12/12/21 17:05> Assessment and Plan Assessment and plan: This is a 81-year-old female with known history of diabetes mellitus, hypertension, PPM, and arthritis admitted for sepsis and acute hypoxia respiratory failure 2/2 bilateral pneumonia requiring intubation and ventilatory support Assessment and Plan Neuro : Acute encephalopathy (resolved), agitation/ anxiety -Neurology consulted, appreciate recommendations -CT brain showed no acute events -EEG interpreted as abnormal record due to diffuse slowing noted throughout the recording, suggestive of encephalopathic process and/or drug effect, possibilities of postictal state cannot be totally excluded. Clinical correlation is in order -MRI brain not obtained-> patient has metal in her body -Repeat CT head with no acute findings -Reorientation as needed -Ammonia 42, B12 1823, TSH 1.5 -BuSpar, fentanyl patch, Seroquel, [place] [facility], Xanax, gabapentin -reduce xanax dose Cardio: Heart failure with reduced EF, h/o chronic heart block s/p PPM, HTN/CAD s/p PCI (2004), Moderate pulmonary HTN, cardiomyopathy -s/p vasopressor support with levophed -11/04 echocardiogram shows EF 30 to 35%, Moderate pulmonary HTN RVSP 49 -Cardiology consulted, appreciate recommendations -Continue beta-charleen and statin therapy -Started midodrine -Not on aspirin due to allergy -Blood pressure monitoring per protocol -As needed nitroglycerin Resp: Acute hypoxic respiratory failure secondary to bilateral pneumonia, left pleural effusion. Right pneumothorax (resolved) -COVID-19 PCR negative -Intubated on 11/06 with 6.00 ETT at 18 at the lip and changed over bougie on 11/11-7.50 ETT at 20 at the lip -See RT notes for titration -PSV today -Surgery consult for trach -Received trach/PEG on 11/26 -S/p bedside bronchoscopy on 11/11 complicated by pneumothorax -S/p chest tube placement for right pneumothorax and dislodgment by patient on 11/15 -ABG/CXR per CCM -VAP bundle -Right chest wall ultrasound showed pleural effusion s/p chest tube -Review right chest wall ultrasound shows small to mod pleural effusion -Restarted on Lasix -12/11 US thoracentesis removed 1L fluid -SPO2 monitoring -Mucomyst every 8 -Albuterol every 8 GI: S/p GI bleed, duodenal ulcer, transaminitis -GI consulted, appreciate recommendations -Nutrition consult for tube feeding -BR: Senokot, MiraLAX -s/p peg 11/26 -H2 charleen -Carafate -24-hour -1250 ml -BM 12/07 -Gastric occult positive : Urinary retention, hyponatremia, hypochloremia -Gamble catheter in place -Strict intake and output -Trend BMP ID: Septic shock (POA), bilateral pneumonia, bacteremia -Infectious disease consulted, appreciate recommendations -COVID-19 PCR negative -Presented with fevers, leukocytosis and hypotension -11/04 blood cultures positive with a group B strep bacteremia 12/19 however repeat blood cultures on the with no growth to date -Echo showed no evidence of vegetation -ABX therapy: Ceftriaxone (), vancomycin (11/05, ), clindamycin ), cefepime , ) -Monitor WBC and fever curve -Recultured on 11/11 with NGTD -Bedside bronchoscopy for mucous plug on CXR 11/11 Heme: Acute DVT in the right external iliac vein, common femoral vein, superior aspect of femoral vein, Acute microcytic anemia -Evidenced on bilateral upper lower extremity ultrasound -S/p 5 unit PRBC -Trend CBC -Transfuse for hemoglobin less than 7 -S/p IVC filter Endo: h/o DM and hypothyroidism -Continue home Synthroid -SSI -Accu-Cheks every 6 -Avoid hypoglycemia The high probability of a clinically significant, sudden or life threatening deterioration of the [multi] system(s) required my full and direct attention, intervention and personal management. The aggregate critical care time was [60] minutes. This time is in addition to time spent performing reported procedures but includes the following: [x] Data Review and interpretation [x] Patient assessment and monitoring of vital signs [x] Documentation [x] Medication orders and management Disposition Plan: icu Total Time Spent with Patient (Minutes): 60 History Interval history: This is an 82-year-old female with DM, HTN , PPM and arthritis who presented to the emergency department on 11/04 for shortness of breath ongoing for the past 3 days, cough and according to family a fever of 102.2. Upon arrival of EMS patient was found to be tachypneic and hypoxic with SPO2 of 76% on room air which later improved to 88% on nonrebreather. Work-up in the emergency department included a CXR which showed bilateral interstitial pulmonary edema with bilateral pleural effusions and bibasilar opacities, leukocytosis and anemia with a hemoglobin of 6.1. Patient was admitted to the hospitalist service with acute anemia, acute hypoxic respiratory failure, bilateral pneumonia and COVID-19 PUI with consults to pulmonology, infectious disease and later cardiology. Patient was eventually intubated in the emergency department on 11/06. Hospital Course to date: 11/04/2021: Empiric therapy with iv levaquin/vancomycin. COVID PCR pending. Will consult ID. PCCM consulted, will follow recs. Hypotensive this AM, ordered bolus and fluids at 150 cc/hr. May require pressor support if bp does not improve. 11/05/2021: GBS on bcx +, currently on rocephin IV. Currently on bipap due to respiratory distress overnight. Worsening BL opacities on CXR. May be volume overload vs pneumonia. Unfortunately bp too low for lasix at this point. WIll continue levophed and bipap. Once able to tolerate, may do trial of albumin/lasix. Call attempt made to Niraj, no response. Will try again tomorrow to update. 11/06/2021: Decompensated overnight requiring intubation. CXR shows worsening interstitial infiltrates. Currenlty on dopamine, levophed, vasopressin. PICC line ordered. Advised RN to place gamble for I/O monitoring. Would benefit from diuresis but very volume overloaded. Prognosis guarded 11/08: Off sedation this am, remains unresponsive only grimace to pain. Hold all sedatives agents for now, patient is off pressors this am. Hypernatremia from today's lab- D5W X1bag, and low K repleted, repeat lab in the am. Severe constipation also noted from KUB, BR added. 11/09: Sudden SPO2 drop in the 60s this am. Patient was manually bagged and deep suctioned. Patient is currently stable on the vent, repeat CXR with no significant change. D/w CCM Mucomyst and brochodilator added. Patient mentation is unchanged, continue to hold off on sedative agents. Neurology consulted. 11/10: Acute DVT noted on bilateral lower extremity Doppler ultrasound therefore she was started on Lovenox treatment dose. Failed SBT. Hypernatremia and hyperchloremia noted, free water flush adjusted. 11/11: Patient noted to be febrile with increasing of the cytosis, UA/BC sent and CXR ordered. ID escalated antibiotics to cefepime. CXR demonstrated mucous plug, bedside bronchoscopy was performed and O ETT was changed over bougie from 6 cm to 7.5. Patient was noted to have a pneumothorax postprocedure and chest tube was placed. Family updated by [facility]. Free water flush increased and will add Jaswant supplementation. 11/12: Patient not noted to follow commands, hypernatremia worsen/persist, increasing free water flush, potassium and magnesium and phosphorus repleted. Hemoglobin noted to be 7.1/24.5 from 7.03/12 yesterday. We will continue to trend and monitor. Vent changes per [facility]. Repeat CXR showed no residual pneumothorax. Consider waterseal tomorrow. Given persistent leukocytosis antibiotics escalated to cefepime per ID. 11/13: Remains on cefepime and vancomycin, vent changes per [facility]. Anemia noted and given 1 unit PRBC. And beta-charleen held in setting of Levophed drip infusing. Remains on fentanyl drip. 11/14: Patient put on CPAP trial by [facility], will continue chest tube until after extubation. Will rest on assist control. CT brain was cancelled by radio disc jockey and reordered. 11/15: Patient removed chest tube overnight. Will obtain cxr. remains on low dose levo. CTH completed with no acute findings. RT to place on CPAP. 11/16: Hypernatremia/hyperchloremia noted on the increase of day water flushes. Anemia noted and ordered PRBC. asked RT to place on cpap but not done yet 11/17: Patient remains on the vent, awake and following commands. H&H stable s/p 2units PRBCs. GI on consult, no intervention at this time. Will continue protonix gtt and serial H&H Q6hrs. Keep patient NPO for now, D5w added for hypernatremia and NPO status. Plan for IVC filter placement today by Vascular. 11/18: Patient is s/p IVC filter. H&H continue to trend down, hbg 6.1 this am, 1 unit of PRBCs ordered. Plan for possible EGD today by GI. Keep patient NPO, con tinue PPI drip and serial H&H Q6hrs. Electrolytes repleted, repeat lab in the am 11/19: S/p EGD- larger duodenal ulcer noted, see operative note. GI recommendations noted also noted. H&H stable this am. Keep patient on protonix gtt for now. Will keep patient NPO, continue IVF and serial H&H for now. Electrolytes repleted, repeat labs in the am 11/20: Very agitated and restless this am, fentanyl gtt resumed. Patient remains on protonix gtt, H&H remains stable. Will switch protonix gtt to IV BID, co ntinue carafate and okay to resume meds at this time. Will F/u with GI to see if TF can be resumed. Gamble was reinserted overnight for retention. Electrolytes repleted, repeat in the am. Plan for possible PST today for possible extubation per CCM. 11/21: Patient is now on seroquel and patient's home buspar resumed. Patient more calm this morning, fentanyl gtt is off. H&H remains stable and patient is tolerating TF. Patient had a runs of Vtach/PVCs this am, BB added per Cardio. Continue daily PS and wean trial for possible extubation. 11/22: Back on fentanyl gtt overnight , RASS o to -1, following commands. Patient failed PST this am due to increased work of breathing and low SPO2, ABG pending. Patient is also with worsen pitting edema, lasix is still on hold. Will discuss with cardio and CCM to possibly resume lasix. 11/23: [facility]IA DEL CARMEN overnight. Patient failed PST again this am. Per CCM plan for possible trach and PEG, hold off on IV lasix for now. General surgery consulted and family is aware of possible Trach and PEG. 11/24: Trach/PEG pending this week, continue SBT/SAT as tolerated. No acute events reported overnight. 11/25: Patient was n.p.o. overnight and will remain n.p.o. tonight for trach/PEG tomorrow morning. She failed to support trial again. KUB obtained due to distended belly. 11/26: Patient scheduled for tracheostomy and PEG tube placement today, has been n.p.o. since midnight. No acute events reported overnight. [facility] ordered simethicone scheduled. 11/27: No acute events reported overnight, patient received trach/PEG yesterday. Has been on feedings since last night. Still awaiting LTAC placement. 11/28: Patient magnesium repleted, repeat a.m. labs, SBT 11/29: Patient complains of chest pain but ECG obtained which showed no acute findings, ordered troponin. Patient failed CPAP yesterday and was trialed again today. levophed was restarted but will aggressively wean 11/30: Patient failed SBT. Continue supportive care. Started gabapentin today 12/01: [facility] DEL CARMEN overnight. Continue daily PST. Case management to arrange possible placement 12/02: Report of dark stools overnight, patient is hemodynamically stable. H&H stable, patient is on PPI. Will continue to trend H&H. Continue daily PST as tolerated. Awaiting LTAC vs SNF placement. 12/03: Hypotensive overnight, requiring low dose pressors. S/p X3 days of gentle diurese. Will continue to monitor, wean off pressors as tolerated for MAP of 65. Patient Failed PST yesterday, case management to follow up with insurance for possible LTAC placement. Continue daily PST as tolerated. PT eval and treat ordered. 12/04: Increased agitation and anxiety overnight, remains on buspar and seroquel, trazadone added to promote rest. Patient is now working with PT, keep patient engage and awake during the day so she can rest at night. No BM for over 5 days, BR was adjusted. Patient did not tolerate PST again yesterday, continue daily PST as tolerated. Continue to titrate pressor for MAP above 65. Pending possible LTAC placement, case management to arrange. 12/05: Still not getting much rest overnight, will add melatonin for sleep. Continue to engage patient during the day and promote rest at night. TF was held due to concern for possible bleeding, H&H remains stable and stools normal this am. Resume TF and continue PPI and carafate. Remains on low dose levophed, titrate as tolerated. Continue daily PST. Possible LTAC placement, awaiting approval. 12/06: [facility] DEL CARMEN overnight. Patient rested overnight. Continue supportive measures. Daily PST as tolerated. Awaiting possible LTAC placement 12/07: [facility]IA DEL CARMEN overnight. Plan for Tpiece trial today. Continue current supportive measures. Possible LTAC placement 12/08: Patient placed on pressure support trial again today, started on Xanax, no acute events reported overnight. Awaiting insurance approval for LTAC. 12/09: Levophed discontinued, LTAC transfer denied, started on midodrine and Lasix, ultrasound chest pending, started on Xanax 0.[address] De León updated family at bedside today. Started on Dilaudid every 3 hours as needed. 12/10: Patient placed on CPAP trial this morning, no acute events reported overnight. Will order ultrasound-guided thoracentesis. 12/11: Patient had a thoracentesis today, will decrease Xanax dosage and continue midodrine and diuresing. Patient failed CPAP today. 12/12: Patient not tolerate CPAP trials today, no acute events reported overnight Hospitalist Physical - Physical exam Narrative exam: General appearance: Present: no acute distress, other (Trah and on the vent) - EENT Eyes: Present: PERRL, EOM intact ENT: hearing intact, clear oral mucosa, dentition normal - Neck Neck: Present: normal ROM - Respiratory Respiratory effort: normal Respiratory: bilateral: diminished - Cardiovascular Rhythm: regular Heart Sounds: Present: S1 & S2. Absent: systolic murmur - Extremities Extremities: no ischemia, pulses intact, pulses symmetrical, No edema, normal temperature, normal color Peripheral Pulses: within normal limits - Abdominal General gastrointestinal: soft, non-tender, non-distended, normal bowel sounds - Integumentary Integumentary: Present: warm, dry - Psychiatric Psychiatric: cooperative - Neurologic Neurologic: CNII-XII intact, no focal deficits, moves all extremities - Allied Health Allied health notes reviewed: nursing, RT, social work - Constitutional Vitals: Temp Pulse Resp BP Pulse Ox 98.0 F 97 H 25 H 113/44 99 12/12/21 12:00 12/12/21 15:50 12/12/21 14:00 12/12/21 14:00 12/12/21 15:50 General appearance: Present: no acute distress, other (Trah and on the vent) HEART Score - HEART Score Troponin: Troponin T 0.045 ng/mL (0.00-0.029) H 11/29/21 20:15 Results - Labs CBC & Chem 7: 12/12/21 04:30 12/12/21 04:30 Labs: Laboratory Last Values WBC 8.3 K/mm3 (4.5-11.0) 12/12/21 04:30 RBC 2.60 M/mm3 (3.65-5.03) L 12/12/21 04:30 Hgb 7.1 gm/dl (10.1-14.3) L 12/12/21 04:30 Hct 21.5 % (30.3-42.9) L 12/12/21 04:30 MCV 83 fl (79-97) 12/12/21 04:30 MCH 27 pg (28-32) L 12/12/21 04:30 MCHC 33 % (30-34) 12/12/21 04:30 RDW 20.3 % (13.2-15.2) H 12/12/21 04:30 Plt Count 227 K/mm3 (140-440) 12/12/21 04:30 Add Manual Diff Complete 11/16/21 15:25 Total Counted 100 11/16/21 15:25 Seg Neutrophils % Info Print Press Operator 11/06/21 15:50 Seg Neuts % (Manual) 87.0 % (40.0-70.0) H 11/16/21 15:25 Band Neutrophils % 0 % 11/16/21 15:25 Lymphocytes % (Manual) 8.0 % (13.4-35.0) L 11/16/21 15:25 Reactive Lymphs % (Man) 0 % 11/16/21 15:25 Monocytes % (Manual) 5.0 % (0.0-7.3) 11/16/21 15:25 Eosinophils % (Manual) 0 % (0.0-4.3) 11/16/21 15:25 Basophils % (Manual) 0 % (0.0-1.8) 11/16/21 15:25 Metamyelocytes % 0 % 11/16/21 15:25 Myelocytes % 0 % 11/16/21 15:25 Promyelocytes % 0 % 11/16/21 15:25 Blast Cells % 0 % 11/16/21 15:25 Nucleated RBC % Not Reportable 11/16/21 15:25 Seg Neutrophils # Man 15.0 K/mm3 (1.8-7.7) H 11/16/21 15:25 Band Neutrophils # 0.0 K/mm3 11/16/21 15:25 Lymphocytes # (Manual) 1.4 K/mm3 (1.2-5.4) 11/16/21 15:25 Abs React Lymphs (Man) 0.0 K/mm3 11/16/21 15:25 Monocytes # (Manual) 0.9 K/mm3 (0.0-0.8) H 11/16/21 15:25 Eosinophils # (Manual) 0.0 K/mm3 (0.0-0.4) 11/16/21 15:25 Basophils # (Manual) 0.0 K/mm3 (0.0-0.1) 11/16/21 15:25 Metamyelocytes # 0.0 K/mm3 11/16/21 15:25 Myelocytes # 0.0 K/mm3 11/16/21 15:25 Promyelocytes # 0.0 K/mm3 11/16/21 15:25 Blast Cells # 0.0 K/mm3 11/16/21 15:25 WBC Morphology Not Reportable 11/16/21 15:25 Hypersegmented Neuts Not Reportable 11/16/21 15:25 Hyposegmented Neuts Not Reportable 11/16/21 15:25 Hypogranular Neuts Not Reportable 11/16/21 15:25 Smudge Cells Not Reportable 11/16/21 15:25 Toxic Granulation Not Reportable 11/16/21 15:25 Toxic Vacuolation Not Reportable 11/16/21 15:25 Dohle Bodies Not Reportable 11/16/21 15:25 Pelger-Huet Anomaly Not Reportable 11/16/21 15:25 Irina Rods Not Reportable 11/16/21 15:25 Platelet Estimate Consistent w auto 11/16/21 15:25 Clumped Platelets Rare 11/16/21 15:25 Plt Clumps, EDTA Not Reportable 11/16/21 15:25 Large Platelets Not Reportable 11/16/21 15:25 Giant Platelets Not Reportable 11/16/21 15:25 Platelet Satelliting Not Reportable 11/16/21 15:25 Plt Morphology Comment Not Reportable 11/16/21 15:25 RBC Morphology Not Reportable 11/16/21 15:25 Dimorphic RBCs Not Reportable 11/16/21 15:25 Polychromasia Not Reportable 11/16/21 15:25 Hypochromasia 2+ 11/16/21 15:25 Poikilocytosis Not Reportable 11/16/21 15:25 Anisocytosis 2+ 11/16/21 15:25 Microcytosis Not Reportable 11/16/21 15:25 Macrocytosis Not Reportable 11/16/21 15:25 Spherocytes Not Reportable 11/16/21 15:25 Pappenheimer Bodies Not Reportable 11/16/21 15:25 Sickle Cells Not Reportable 11/16/21 15:25 Target Cells 2+ 11/16/21 15:25 Tear Drop Cells Not Reportable 11/16/21 15:25 Ovalocytes Not Reportable 11/16/21 15:25 Helmet Cells Not Reportable 11/16/21 15:25 Odonnell-Landrum Bodies Not Reportable 11/16/21 15:25 [place] Rings Not Reportable 11/16/21 15:25 Malcom Cells Not Reportable 11/16/21 15:25 Bite Cells Not Reportable 11/16/21 15:25 Crenated Cell Not Reportable 11/16/21 15:25 Elliptocytes Not Reportable 11/16/21 15:25 Acanthocytes (Spur) Not Reportable 11/16/21 15:25 Rouleaux Not Reportable 11/16/21 15:25 Hemoglobin C Crystals Not Reportable 11/16/21 15:25 Schistocytes Not Reportable 11/16/21 15:25 Malaria parasites Not Reportable 11/16/21 15:25 Godfrey Bodies Not Reportable 11/16/21 15:25 Hem Pathologist Commnt No 11/16/21 15:25 PT 16.9 Sec. (12.2-14.9) H 11/26/21 05:00 INR 1.24 (0.87-1.13) H 11/26/21 05:00 APTT 29.2 Sec. (24.2-36.6) 11/26/21 05:00 D-Dimer 2655.00 ng/mlDDU (0-234) H 11/11/21 04:28 ABG pH 7.449 pH Units (7.350-7.450) 11/21/21 16:00 ABG pCO2 32.1 mm Hg 11/21/21 16:00 ABG pO2 114.2 mm Hg (80.0-90.0) H 11/21/21 16:00 ABG HCO3 21.8 mmol/L (20.0-26.0) 11/21/21 16:00 ABG O2 Saturation 98.3 % (95.0-99.0) 11/21/21 16:00 ABG O2 Content 12.5 (0.0-44) 11/21/21 16:00 ABG Base Excess -1.7 mmol/L (-2.0-3.0) 11/21/21 16:00 ABG Hemoglobin 9.1 gm/dl (12.0-16.0) L 11/21/21 16:00 ABG Carboxyhemoglobin 1.9 % (0.0-5.0) 11/21/21 16:00 ABG Methemoglobin 0.5 % (0.0-1.5) 11/21/21 16:00 Oxyhemoglobin 96.0 % (95.0-99.0) 11/21/21 16:00 FiO2 30 % 11/21/21 16:00 Sodium 135 mmol/L (137-145) L 12/12/21 04:30 Potassium 3.8 mmol/L (3.6-5.0) 12/12/21 04:30 Chloride 97.9 mmol/L (98-107) L 12/12/21 04:30 Carbon Dioxide 27 mmol/L (22-30) 12/12/21 04:30 Anion Gap 14 mmol/L 12/12/21 04:30 BUN 26 mg/dL (7-17) H 12/12/21 04:30 Creatinine 0.5 mg/dL (0.6-1.2) L 12/12/21 04:30 Estimated GFR > 60 ml/min 12/12/21 04:30 BUN/Creatinine Ratio 52 % 12/12/21 04:30 Glucose 138 mg/dL (65-100) H 12/12/21 04:30 POC Glucose 119 mg/dL (70-105) H 12/12/21 11:51 Lactic Acid 3.70 mmol/L (0.7-2.0) H* 11/03/21 22:32 Calcium 8.2 mg/dL (8.4-10.2) L 12/12/21 04:30 Phosphorus 3.50 mg/dL (2.5-4.5) 12/08/21 04:00 Magnesium 2.20 mg/dL (1.7-2.3) 12/08/21 04:00 Ferritin 52.6 ng/mL (10.0-200.0) 11/05/21 06:11 Total Bilirubin 0.50 mg/dL (0.1-1.2) 11/17/21 05:56 Direct Bilirubin < 0.2 mg/dL (0-0.2) 11/11/21 04:28 Indirect Bilirubin 0.1 mg/dL 11/11/21 04:28 AST 36 units/L (5-40) 11/17/21 05:56 ALT 47 units/L (7-56) 11/17/21 05:56 Alkaline Phosphatase 107 units/L (35-129) 11/17/21 05:56 Ammonia 42.0 umol/L (25-60) 11/10/21 14:08 Lactate Dehydrogenase 187 units/L (91-180) H 11/05/21 06:11 Troponin T 0.045 ng/mL (0.00-0.029) H 11/29/21 20:15 C-Reactive Protein 22.20 mg/dL (0.00-1.30) H 11/05/21 06:11 NT-Pro-B Natriuret Pep 7895 pg/mL (0-900) H 11/03/21 22:32 Total Protein 5.1 g/dL (6.3-8.2) L 11/17/21 05:56 Albumin 2.2 g/dL (3.9-5) L 11/17/21 05:56 Albumin/Globulin Ratio 0.8 % 11/17/21 05:56 Triglycerides 59 mg/dL (2-149) 11/29/21 20:15 Cholesterol 74 mg/dL (50-199) 11/29/21 20:15 LDL Cholesterol Direct 25 mg/dL (50-130) L 11/29/21 20:15 HDL Cholesterol 41 mg/dL (40-59) 11/29/21 20:15 Cholesterol/HDL Ratio 1.80 % 11/29/21 20:15 Vitamin B12 1823 pg/mL (211-911) H 11/10/21 14:08 TSH 1.510 mlU/mL (0.270-4.200) 11/10/21 14:08 Urine Color Yellow (Yellow) 11/11/21 09:00 Urine Turbidity Slightly-cloudy (Clear) 11/11/21 09:00 Urine pH 5.0 (5.0-7.0) 11/11/21 09:00 Ur Specific [place] 1.009 (1.003-1.030) 11/11/21 09:00 Urine Protein <15 mg/dl mg/dL (Negative) 11/11/21 09:00 Urine Glucose (UA) Neg mg/dL (Negative) 11/11/21 09:00 Urine Ketones Neg mg/dL (Negative) 11/11/21 09:00 Urine Blood Mod (Negative) 11/11/21 09:00 Urine Nitrite Neg (Negative) 11/11/21 09:00 Urine Bilirubin Neg (Negative) 11/11/21 09:00 Urine Urobilinogen < 2.0 mg/dL (<2.0) 11/11/21 09:00 Ur Leukocyte Esterase Neg (Negative) 11/11/21 09:00 Urine WBC (Auto) < 1.0 /HPF (0.0-6.0) 11/11/21 09:00 Urine RBC (Auto) < 1.0 /HPF (0.0-6.0) 11/11/21 09:00 Coronavirus (PCR) Negative (Negative) 11/10/21 08:30 Blood Type O POSITIVE 12/12/21 04:30 Antibody Screen Negative 12/12/21 04:30 Crossmatch See Detail 11/18/21 10:45 Gamble/IV: Voiding Method Indwelling Catheter Active Medications - Current Medications Current Medications: Generic Name Dose Route Start Last Admin Trade Name Freq PRN Reason Stop Dose Admin Hydrocodone Bitart/Acetaminophen 1 each 11/21/21 10:00 12/12/21 15:10 Hydrocodone/Acetaminophen 10-325mg Tab FEEDTUBE 1 each TID YOSSI Administration Alprazolam 0.25 mg 12/11/21 16:00 12/12/21 08:15 Alprazolam 0.25 Mg Tab PO 0.25 mg Q8H YOSSI Administration Lipase/Protease/Amylase 1 each 11/08/21 11:09 Lipase 10,500/Protease 25,000/Amylase 43,750 (Units) Dr Lema FEEDTUBE PRN PRN For Clogged Feeding Tube Buspirone HCl 7.5 mg 11/17/21 22:00 12/12/21 11:10 Buspirone 5 Mg Tab PO 7.5 mg BID YOSSI Administration Dextrose 0 ml 11/10/21 10:52 11/21/21 16:27 Dextrose 10% *Hypoglycemia IV 50 ml PRN PRN Administration Hypoglycemia Docusate Sodium 100 mg 12/04/21 11:00 12/12/21 11:09 Docusate Sodium 100 Mg/10 Ml Oral Liqd PO 100 mg BID YOSSI Administration Fentanyl 1 applic 11/17/21 13:00 12/11/21 09:09 Fentanyl 25 Mcg/Hr Patch 72hr TD 1 applic Q3D YOSSI Administration Furosemide 20 mg 12/09/21 10:00 12/12/21 11:00 Furosemide 20 Mg Tab PO 20 mg QDAY YOSSI Administration Gabapentin 100 mg 12/01/21 10:00 12/12/21 11:12 Gabapentin 100 Mg Cap PO 100 mg QDAY YOSSI Administration Hydromorphone HCl 0.5 mg 12/08/21 20:06 12/09/21 21:21 Hydromorphone 1 Mg/1 Ml Inj IV 0.5 mg Q3H PRN Administration Pain, Moderate (4-6) Hydrophilic Ointment 1 applic 11/06/21 04:02 Lip Therapy Vaseline TP Q2HR PRN Dry Lips Lansoprazole 30 mg 11/24/21 22:00 12/12/21 11:00 Lansoprazole 30 Mg Solutab FEEDTUBE 30 mg BID YOSSI Administration Levothyroxine Sodium 125 mcg 11/05/21 07:00 12/12/21 06:30 Levothyroxine 125 Mcg Tab PO 125 mcg DAILY@0600 YOSSI Administration Melatonin 5 mg 12/05/21 22:00 12/11/21 22:36 Melatonin 5 Mg Tab PO 5 mg QHS YOSSI Administration Metoprolol Tartrate 6.25 mg 12/08/21 22:52 12/12/21 13:05 Metoprolol Tartrate 25 Mg Tab PO Not Given BID YOSSI Midodrine 10 mg 12/09/21 08:00 12/12/21 11:12 Midodrine 5 Mg Tab PO 10 mg TID@0800,1200,1600 YOSSI Administration Multi-Ingred Cream/Lotion/Oil/Oint 1 applic 11/06/21 04:02 Mineral Oil/Petrolatum, White Ophth Oint 3.5 Gm OU Q4HR PRN Dry Eye(s) Nitroglycerin 0.4 mg 11/30/21 11:36 Nitroglycerin 0.4 Mg Tab Subl SL .Q5MIN PRN Chest Pain Ondansetron HCl 4 mg 12/05/21 10:00 12/08/21 05:17 Ondansetron 4 Mg/2 Ml Inj IV 4 mg Q8H PRN Administration Nausea And Vomiting Polyethylene Glycol 17 gm 12/02/21 10:00 12/12/21 11:12 Polyethylene Glycol 3350 17 Gm Powder PO 17 gm QDAY YOSSI Administration Pravastatin Sodium 20 mg 11/18/21 22:00 12/11/21 22:36 Pravastatin 20 Mg Tab PO 20 mg QHS YOSSI Administration Quetiapine Fumarate 50 mg 12/01/21 22:00 12/11/21 22:36 Quetiapine 25 Mg Tab PO 50 mg QHS YOSSI Administration Senna 17.6 mg 11/08/21 22:00 12/12/21 11:00 Sennosides Oral Liqd 8.8 Mg/5 Ml Oral Liqd PO 17.6 mg Q12HR YOSSI Administration Simple Syrup 15 ml 11/08/21 11:09 Simple Syrup 15 Ml FEEDTUBE PRN PRN Hypoglycemia Simple Syrup 30 ml 11/08/21 11:09 Simple Syrup 15 Ml FEEDTUBE PRN PRN Hypoglycemia Sodium Bicarbonate 325 mg 11/08/21 11:09 Sodium Bicarbonate 325 Mg Tab FEEDTUBE PRN PRN For Clogged Feeding Tube Sodium Chloride 10 ml 11/04/21 10:00 12/12/21 11:13 Sodium Chloride 0.9% 10 Ml Flush Syringe IV 10 ml BID YOSSI Administration Sodium Chloride 10 ml 11/04/21 02:03 Sodium Chloride 0.9% 10 Ml Flush Syringe IV PRN PRN LINE FLUSH Sucralfate 1 gm 11/18/21 16:30 12/12/21 11:07 Sucralfate 1 Gm/10 Ml Oral Liqd PO 1 gm ACHS YOSSI Administration Trazodone HCl 50 mg 12/04/21 22:00 12/11/21 22:36 Trazodone 50 Mg Tab PO 50 mg QHS YOSSI Administration Nutrition/Malnutrition Assess - Dietary Evaluation Nutrition/Malnutrition Findings: Nutrition Notes Start: 11/04/21 17:16 Freq: Status: Active Protocol: Document 12/08/21 10:17 YOVANI (Rec: 12/08/21 10:27 [facility] [id number]) Nutrition Notes Initial or Follow up Reassessment Current Diagnosis Diabetes,Hypertension,Heart Failure,Respiratory Failure Other Pertinent Diagnosis Bilat pneu, acute GIB Current Diet TF - Vital AF 1.2 at 40ml/hr Labs/Tests Na 135 BUN 23 H/H 7.7/23.5 Pertinent Medications Colace, Miralax Height 5 ft Weight 62.4 kg [place] Body Weight (kg) 45.45 BMI 26.9 Weight Status Appropriate Subjective/Other Information Trach and PEG placed on 11/26. Pt remains on vent support. BM x 1 on yesterday; previous report of no BM x 5 days on . Pt tolerating TF. Percent of energy/protein needs met: 95% energy 96% pro Burn Absent Trauma Absent #1 Nutrition Diagnosis Inadequate oral intake Diagnosis Progress(for reassessment Continues documentation) Is patient on ventilator? Yes Is Patient Ambulatory and/or Out of Bed No REE-([facility]-confined to bed) 1207.824 Calculation Used for Recommendations [facility] Additional Notes Pro needs 1.2-2g/k-125g/ day Fluid needs 1ml/kcal Nutrition Intervention Nutrition Support: Continue Vital AF 1.2 at 40ml/ hr. Provide 65ml water flush q4h. Kcal 1,152 Protein (gm) 72 Carbohydrates (gm) 106 Fat (gm) 52 Fluid (mL) 779 Fiber (gm) 5 Goal #1 TF tolerance Goal #2 TF to meet at least 75% energy and pro needs Follow-Up By: 12/15/21 Additional Comments F/U: stable TF, vent status, wt <LEAH ALFONSO - Last Filed: 12/12/21 20:34> Assessment and Plan Assessment and plan: I saw and evaluated the patient. I agree with the findings and the plan of care as documented in the Nurse Practitioner's~note, with the following corrections and additions. Hospitalist Physical - Constitutional Vitals: Temp Pulse Resp BP Pulse Ox 97.6 F 81 12 143/68 100 12/12/21 20:00 12/12/21 18:45 12/12/21 18:45 12/12/21 18:45 12/12/21 18:45 HEART Score - HEART Score Troponin: Troponin T 0.045 ng/mL (0.00-0.029) H 11/29/21 20:15 Results - Labs CBC & Chem 7: 12/12/21 04:30 12/12/21 04:30 Labs: Laboratory Last Values WBC 8.3 K/mm3 (4.5-11.0) 12/12/21 04:30 RBC 2.60 M/mm3 (3.65-5.03) L 12/12/21 04:30 Hgb 7.1 gm/dl (10.1-14.3) L 12/12/21 04:30 Hct 21.5 % (30.3-42.9) L 12/12/21 04:30 MCV 83 fl (79-97) 12/12/21 04:30 MCH 27 pg (28-32) L 12/12/21 04:30 MCHC 33 % (30-34) 12/12/21 04:30 RDW 20.3 % (13.2-15.2) H 12/12/21 04:30 Plt Count 227 K/mm3 (140-440) 12/12/21 04:30 Add Manual Diff Complete 11/16/21 15:25 Total Counted 100 11/16/21 15:25 Seg Neutrophils % Info Print Press Operator 11/06/21 15:50 Seg Neuts % (Manual) 87.0 % (40.0-70.0) H 11/16/21 15:25 Band Neutrophils % 0 % 11/16/21 15:25 Lymphocytes % (Manual) 8.0 % (13.4-35.0) L 11/16/21 15:25 Reactive Lymphs % (Man) 0 % 11/16/21 15:25 Monocytes % (Manual) 5.0 % (0.0-7.3) 11/16/21 15:25 Eosinophils % (Manual) 0 % (0.0-4.3) 11/16/21 15:25 Basophils % (Manual) 0 % (0.0-1.8) 11/16/21 15:25 Metamyelocytes % 0 % 11/16/21 15:25 Myelocytes % 0 % 11/16/21 15:25 Promyelocytes % 0 % 11/16/21 15:25 Blast Cells % 0 % 11/16/21 15:25 Nucleated RBC % Not Reportable 11/16/21 15:25 Seg Neutrophils # Man 15.0 K/mm3 (1.8-7.7) H 11/16/21 15:25 Band Neutrophils # 0.0 K/mm3 11/16/21 15:25 Lymphocytes # (Manual) 1.4 K/mm3 (1.2-5.4) 11/16/21 15:25 Abs React Lymphs (Man) 0.0 K/mm3 11/16/21 15:25 Monocytes # (Manual) 0.9 K/mm3 (0.0-0.8) H 11/16/21 15:25 Eosinophils # (Manual) 0.0 K/mm3 (0.0-0.4) 11/16/21 15:25 Basophils # (Manual) 0.0 K/mm3 (0.0-0.1) 11/16/21 15:25 Metamyelocytes # 0.0 K/mm3 11/16/21 15:25 Myelocytes # 0.0 K/mm3 11/16/21 15:25 Promyelocytes # 0.0 K/mm3 11/16/21 15:25 Blast Cells # 0.0 K/mm3 11/16/21 15:25 WBC Morphology Not Reportable 11/16/21 15:25 Hypersegmented Neuts Not Reportable 11/16/21 15:25 Hyposegmented Neuts Not Reportable 11/16/21 15:25 Hypogranular Neuts Not Reportable 11/16/21 15:25 Smudge Cells Not Reportable 11/16/21 15:25 Toxic Granulation Not Reportable 11/16/21 15:25 Toxic Vacuolation Not Reportable 11/16/21 15:25 Dohle Bodies Not Reportable 11/16/21 15:25 Pelger-Huet Anomaly Not Reportable 11/16/21 15:25 Irina Rods Not Reportable 11/16/21 15:25 Platelet Estimate Consistent w auto 11/16/21 15:25 Clumped Platelets Rare 11/16/21 15:25 Plt Clumps, EDTA Not Reportable 11/16/21 15:25 Large Platelets Not Reportable 11/16/21 15:25 Giant Platelets Not Reportable 11/16/21 15:25 Platelet Satelliting Not Reportable 11/16/21 15:25 Plt Morphology Comment Not Reportable 11/16/21 15:25 RBC Morphology Not Reportable 11/16/21 15:25 Dimorphic RBCs Not Reportable 11/16/21 15:25 Polychromasia Not Reportable 11/16/21 15:25 Hypochromasia 2+ 11/16/21 15:25 Poikilocytosis Not Reportable 11/16/21 15:25 Anisocytosis 2+ 11/16/21 15:25 Microcytosis Not Reportable 11/16/21 15:25 Macrocytosis Not Reportable 11/16/21 15:25 Spherocytes Not Reportable 11/16/21 15:25 Pappenheimer Bodies Not Reportable 11/16/21 15:25 Sickle Cells Not Reportable 11/16/21 15:25 Target Cells 2+ 11/16/21 15:25 Tear Drop Cells Not Reportable 11/16/21 15:25 Ovalocytes Not Reportable 11/16/21 15:25 Helmet Cells Not Reportable 11/16/21 15:25 Odonnell-Landrum Bodies Not Reportable 11/16/21 15:25 [place] Rings Not Reportable 11/16/21 15:25 Malcom Cells Not Reportable 11/16/21 15:25 Bite Cells Not Reportable 11/16/21 15:25 Crenated Cell Not Reportable 11/16/21 15:25 Elliptocytes Not Reportable 11/16/21 15:25 Acanthocytes (Spur) Not Reportable 11/16/21 15:25 Rouleaux Not Reportable 11/16/21 15:25 Hemoglobin C Crystals Not Reportable 11/16/21 15:25 Schistocytes Not Reportable 11/16/21 15:25 Malaria parasites Not Reportable 11/16/21 15:25 Godfrey Bodies Not Reportable 11/16/21 15:25 Hem Pathologist Commnt No 11/16/21 15:25 PT 16.9 Sec. (12.2-14.9) H 11/26/21 05:00 INR 1.24 (0.87-1.13) H 11/26/21 05:00 APTT 29.2 Sec. (24.2-36.6) 11/26/21 05:00 D-Dimer 2655.00 ng/mlDDU (0-234) H 11/11/21 04:28 ABG pH 7.449 pH Units (7.350-7.450) 11/21/21 16:00 ABG pCO2 32.1 mm Hg 11/21/21 16:00 ABG pO2 114.2 mm Hg (80.0-90.0) H 11/21/21 16:00 ABG HCO3 21.8 mmol/L (20.0-26.0) 11/21/21 16:00 ABG O2 Saturation 98.3 % (95.0-99.0) 11/21/21 16:00 ABG O2 Content 12.5 (0.0-44) 11/21/21 16:00 ABG Base Excess -1.7 mmol/L (-2.0-3.0) 11/21/21 16:00 ABG Hemoglobin 9.1 gm/dl (12.0-16.0) L 11/21/21 16:00 ABG Carboxyhemoglobin 1.9 % (0.0-5.0) 11/21/21 16:00 ABG Methemoglobin 0.5 % (0.0-1.5) 11/21/21 16:00 Oxyhemoglobin 96.0 % (95.0-99.0) 11/21/21 16:00 FiO2 30 % 11/21/21 16:00 Sodium 135 mmol/L (137-145) L 12/12/21 04:30 Potassium 3.8 mmol/L (3.6-5.0) 12/12/21 04:30 Chloride 97.9 mmol/L (98-107) L 12/12/21 04:30 Carbon Dioxide 27 mmol/L (22-30) 12/12/21 04:30 Anion Gap 14 mmol/L 12/12/21 04:30 BUN 26 mg/dL (7-17) H 12/12/21 04:30 Creatinine 0.5 mg/dL (0.6-1.2) L 12/12/21 04:30 Estimated GFR > 60 ml/min 12/12/21 04:30 BUN/Creatinine Ratio 52 % 12/12/21 04:30 Glucose 138 mg/dL (65-100) H 12/12/21 04:30 POC Glucose 104 mg/dL (70-105) 12/12/21 18:17 Lactic Acid 3.70 mmol/L (0.7-2.0) H* 11/03/21 22:32 Calcium 8.2 mg/dL (8.4-10.2) L 12/12/21 04:30 Phosphorus 3.50 mg/dL (2.5-4.5) 12/08/21 04:00 Magnesium 2.20 mg/dL (1.7-2.3) 12/08/21 04:00 Ferritin 52.6 ng/mL (10.0-200.0) 11/05/21 06:11 Total Bilirubin 0.50 mg/dL (0.1-1.2) 11/17/21 05:56 Direct Bilirubin < 0.2 mg/dL (0-0.2) 11/11/21 04:28 Indirect Bilirubin 0.1 mg/dL 11/11/21 04:28 AST 36 units/L (5-40) 11/17/21 05:56 ALT 47 units/L (7-56) 11/17/21 05:56 Alkaline Phosphatase 107 units/L (35-129) 11/17/21 05:56 Ammonia 42.0 umol/L (25-60) 11/10/21 14:08 Lactate Dehydrogenase 187 units/L (91-180) H 11/05/21 06:11 Troponin T 0.045 ng/mL (0.00-0.029) H 11/29/21 20:15 C-Reactive Protein 22.20 mg/dL (0.00-1.30) H 11/05/21 06:11 NT-Pro-B Natriuret Pep 7895 pg/mL (0-900) H 11/03/21 22:32 Total Protein 5.1 g/dL (6.3-8.2) L 11/17/21 05:56 Albumin 2.2 g/dL (3.9-5) L 11/17/21 05:56 Albumin/Globulin Ratio 0.8 % 11/17/21 05:56 Triglycerides 59 mg/dL (2-149) 11/29/21 20:15 Cholesterol 74 mg/dL (50-199) 11/29/21 20:15 LDL Cholesterol Direct 25 mg/dL (50-130) L 11/29/21 20:15 HDL Cholesterol 41 mg/dL (40-59) 11/29/21 20:15 Cholesterol/HDL Ratio 1.80 % 11/29/21 20:15 Vitamin B12 1823 pg/mL (211-911) H 11/10/21 14:08 TSH 1.510 mlU/mL (0.270-4.200) 11/10/21 14:08 Urine Color Yellow (Yellow) 11/11/21 09:00 Urine Turbidity Slightly-cloudy (Clear) 11/11/21 09:00 Urine pH 5.0 (5.0-7.0) 11/11/21 09:00 Ur Specific [place] 1.009 (1.003-1.030) 11/11/21 09:00 Urine Protein <15 mg/dl mg/dL (Negative) 11/11/21 09:00 Urine Glucose (UA) Neg mg/dL (Negative) 11/11/21 09:00 Urine Ketones Neg mg/dL (Negative) 11/11/21 09:00 Urine Blood Mod (Negative) 11/11/21 09:00 Urine Nitrite Neg (Negative) 11/11/21 09:00 Urine Bilirubin Neg (Negative) 11/11/21 09:00 Urine Urobilinogen < 2.0 mg/dL (<2.0) 11/11/21 09:00 Ur Leukocyte Esterase Neg (Negative) 11/11/21 09:00 Urine WBC (Auto) < 1.0 /HPF (0.0-6.0) 11/11/21 09:00 Urine RBC (Auto) < 1.0 /HPF (0.0-6.0) 11/11/21 09:00 Coronavirus (PCR) Negative (Negative) 11/10/21 08:30 Blood Type O POSITIVE 12/12/21 04:30 Antibody Screen Negative 12/12/21 04:30 Crossmatch See Detail 11/18/21 10:45 Gamble/IV: Voiding Method Indwelling Catheter Active Medications - Current Medications Current Medications: Generic Name Dose Route Start Last Admin Trade Name Freq PRN Reason Stop Dose Admin Hydrocodone Bitart/Acetaminophen 1 each 11/21/21 10:00 12/12/21 15:10 Hydrocodone/Acetaminophen 10-325mg Tab FEEDTUBE 1 each TID YOSSI Administration Alprazolam 0.25 mg 12/11/21 16:00 12/12/21 17:00 Alprazolam 0.25 Mg Tab PO 0.25 mg Q8H YOSSI Administration Lipase/Protease/Amylase 1 each 11/08/21 11:09 Lipase 10,500/Protease 25,000/Amylase 43,750 (Units) Dr Lema FEEDTUBE PRN PRN For Clogged Feeding Tube Buspirone HCl 7.5 mg 11/17/21 22:00 12/12/21 11:10 Buspirone 5 Mg Tab PO 7.5 mg BID YOSSI Administration Dextrose 0 ml 11/10/21 10:52 11/21/21 16:27 Dextrose 10% *Hypoglycemia IV 50 ml PRN PRN Administration Hypoglycemia Docusate Sodium 100 mg 12/04/21 11:00 12/12/21 11:09 Docusate Sodium 100 Mg/10 Ml Oral Liqd PO 100 mg BID YOSSI Administration Fentanyl 1 applic 11/17/21 13:00 12/11/21 09:09 Fentanyl 25 Mcg/Hr Patch 72hr TD 1 applic Q3D YOSSI Administration Furosemide 20 mg 12/09/21 10:00 12/12/21 11:00 Furosemide 20 Mg Tab PO 20 mg QDAY YOSSI Administration Gabapentin 100 mg 12/01/21 10:00 12/12/21 11:12 Gabapentin 100 Mg Cap PO 100 mg QDAY YOSSI Administration Hydromorphone HCl 0.5 mg 12/08/21 20:06 12/09/21 21:21 Hydromorphone 1 Mg/1 Ml Inj IV 0.5 mg Q3H PRN Administration Pain, Moderate (4-6) Hydrophilic Ointment 1 applic 11/06/21 04:02 Lip Therapy Vaseline TP Q2HR PRN Dry Lips Lansoprazole 30 mg 11/24/21 22:00 12/12/21 11:00 Lansoprazole 30 Mg Solutab FEEDTUBE 30 mg BID YOSSI Administration Levothyroxine Sodium 125 mcg 11/05/21 07:00 12/12/21 06:30 Levothyroxine 125 Mcg Tab PO 125 mcg DAILY@0600 YOSSI Administration Melatonin 5 mg 12/05/21 22:00 12/11/21 22:36 Melatonin 5 Mg Tab PO 5 mg QHS YOSSI Administration Metoprolol Tartrate 6.25 mg 12/08/21 22:52 12/12/21 13:05 Metoprolol Tartrate 25 Mg Tab PO Not Given BID YOSSI Midodrine 10 mg 12/09/21 08:00 12/12/21 16:56 Midodrine 5 Mg Tab PO 10 mg TID@0800,1200,1600 YOSSI Administration Multi-Ingred Cream/Lotion/Oil/Oint 1 applic 11/06/21 04:02 Mineral Oil/Petrolatum, White Ophth Oint 3.5 Gm OU Q4HR PRN Dry Eye(s) Nitroglycerin 0.4 mg 11/30/21 11:36 Nitroglycerin 0.4 Mg Tab Subl SL .Q5MIN PRN Chest Pain Ondansetron HCl 4 mg 12/05/21 10:00 12/08/21 05:17 Ondansetron 4 Mg/2 Ml Inj IV 4 mg Q8H PRN Administration Nausea And Vomiting Polyethylene Glycol 17 gm 12/02/21 10:00 12/12/21 11:12 Polyethylene Glycol 3350 17 Gm Powder PO 17 gm QDAY YOSSI Administration Pravastatin Sodium 20 mg 11/18/21 22:00 12/11/21 22:36 Pravastatin 20 Mg Tab PO 20 mg QHS YOSSI Administration Quetiapine Fumarate 50 mg 12/01/21 22:00 12/11/21 22:36 Quetiapine 25 Mg Tab PO 50 mg QHS YOSSI Administration Senna 17.6 mg 11/08/21 22:00 12/12/21 11:00 Sennosides Oral Liqd 8.8 Mg/5 Ml Oral Liqd PO 17.6 mg Q12HR YOSSI Administration Simple Syrup 15 ml 11/08/21 11:09 Simple Syrup 15 Ml FEEDTUBE PRN PRN Hypoglycemia Simple Syrup 30 ml 11/08/21 11:09 Simple Syrup 15 Ml FEEDTUBE PRN PRN Hypoglycemia Sodium Bicarbonate 325 mg 11/08/21 11:09 Sodium Bicarbonate 325 Mg Tab FEEDTUBE PRN PRN For Clogged Feeding Tube Sodium Chloride 10 ml 11/04/21 10:00 12/12/21 11:13 Sodium Chloride 0.9% 10 Ml Flush Syringe IV 10 ml BID YOSSI Administration Sodium Chloride 10 ml 11/04/21 02:03 Sodium Chloride 0.9% 10 Ml Flush Syringe IV PRN PRN LINE FLUSH Sucralfate 1 gm 02/01/22 16:30 12/12/21 16:56 Sucralfate 1 Gm/10 Ml Oral Liqd PO 1 gm ACHS YOSSI Administration Trazodone HCl 50 mg 12/04/21 22:00 12/11/21 22:36 Trazodone 50 Mg Tab PO 50 mg QHS YOSSI Administration Nutrition/Malnutrition Assess - Dietary Evaluation Nutrition/Malnutrition Findings: Nutrition Notes Start: 11/04/21 17:16 Freq: Status: Active Protocol: Document 12/08/21 10:17 [facility]Rec: 12/08/21 10:27 [facility] [id number]) Nutrition Notes Initial or Follow up Reassessment Current Diagnosis Diabetes,Hypertension,Heart Failure,Respiratory Failure Other Pertinent Diagnosis Bilat pneu, acute GIB Current Diet TF - Vital AF 1.2 at 40ml/hr Labs/Tests Na 135 BUN 23 H/H 7.7/23.5 Pertinent Medications Colace, Miralax Height 5 ft Weight 62.4 kg [place] Body Weight (kg) 45.45 BMI 26.9 Weight Status Appropriate Subjective/Other Information Trach and PEG placed on 11/26. Pt remains on vent support. BM x 1 on yesterday; previous report of no BM x 5 days on . Pt tolerating TF. Percent of energy/protein needs met: 95% energy 96% pro Burn Absent Trauma Absent #1 Nutrition Diagnosis Inadequate oral intake Diagnosis Progress(for reassessment Continues documentation) Is patient on ventilator? Yes Is Patient Ambulatory and/or Out of Bed No REE-([facility]-confined to bed) 1207.824 Calculation Used for Recommendations [facility] Additional Notes Pro needs 1.2-2g/k-125g/ day Fluid needs 1ml/kcal Nutrition Intervention Nutrition Support: Continue Vital AF 1.2 at 40ml/ hr. Provide 65ml water flush q4h. Kcal 1,152 Protein (gm) 72 Carbohydrates (gm) 106 Fat (gm) 52 Fluid (mL) 779 Fiber (gm) 5 Goal #1 TF tolerance Goal #2 TF to meet at least 75% energy and pro needs Follow-Up By: 12/15/21 Additional Comments F/U: stable TF, vent status, wt
[2021-12-12] MEDS: QUEtiapine 25 MG TAB PO SCH (22:16)
[2021-12-12] MEDS: traZODone 50 MG TAB PO SCH (22:17)
[2021-12-12] MEDS: MELATONIN 5 MG TAB PO SCH (22:17)
[2021-12-13] MEDS ORDERED: dilTIAZem 25 MG/5 ML INJ IV ONE (00:16)
[2021-12-13 05:04] LABS: Hematocrit 22.8 % (30.3-42.9); Hemoglobin 7.4 gm/dl (10.1-14.3); Mean Corpuscular HGB Conc 32 % (30-34); Mean Corpuscular Volume 84 fl (79-97); Platelet Count 252 K/mm3 (140-440); Red Blood Count 2.73 M/mm3 (3.65-5.03)
[2021-12-13] MEDS: ALPRAZolam 0.25 MG TAB PO SCH ×3 (05:05→15:54)
[2021-12-13 05:08] LABS: Red Cell Distribution Width 20.5 % (13.2-15.2)
[2021-12-13 05:18] LABS: Blood Urea Nitrogen 23 mg/dL (7-17); Calcium 8.1 mg/dL (8.4-10.2); Hemolysis Index 0
[2021-12-13 05:19] LABS: BUN/Creatinine Ratio 46
[2021-12-13] MEDS: LEVOTHYROXINE 125 MCG TAB PO SCH (05:25)
[2021-12-13] MEDS: HYDROcodone/ACETAMINOPHEN 10-325MG TAB FEEDTUBE SCH ×3 (07:55→20:32)
[2021-12-13] MEDS: SUCRALFATE 1 GM/10 ML ORAL LIQD PO SCH ×4 (07:55→21:18)
[2021-12-13] MEDS: MIDODRINE 5 MG TAB PO SCH ×3 (07:55→15:54)
[2021-12-13] MEDS: busPIRone 5 MG TAB PO SCH ×2 (09:52→21:17)
[2021-12-13] MEDS: LANSOPRAZOLE 30 MG SOLUTAB FEEDTUBE SCH ×2 (09:52→21:18)
[2021-12-13] MEDS: HYDROmorphone 1 MG/1 ML INJ IV PRN ×2 (09:52→18:00)
[2021-12-13] MEDS: FUROSEMIDE 20 MG TAB PO SCH (09:52)
[2021-12-13] MEDS: METOPROLOL TARTRATE 25 MG TAB PO SCH ×2 (09:53→21:18)
[2021-12-13] MEDS: GABAPENTIN 100 MG CAP PO SCH (09:53)
[2021-12-13] MEDS: DOCUSATE SODIUM 100 MG/10 ML ORAL LIQD PO SCH ×2 (10:19→21:19)
[2021-12-13] MEDS: SENNOSIDES ORAL LIQD 8.8 MG/5 ML ORAL LIQD PO SCH ×2 (10:19→21:20)
[2021-12-13] MEDS: POLYETHYLENE GLYCOL 3350 17 GM POWDER PO SCH (10:19)
--- NOTE | 2021-12-13 13:17 | Progress Note ---
<MAYCOLJASBIRMarissa - Last Filed: 12/13/21 13:33> Assessment and Plan Assessment and plan: This is a 81-year-old female with known history of diabetes mellitus, hypertension, PPM, and arthritis admitted for sepsis and acute hypoxia respiratory failure 2/2 bilateral pneumonia requiring intubation and ventilatory support Assessment and Plan Neuro : Acute encephalopathy (resolved), agitation/ anxiety -Neurology consulted, appreciate recommendations -CT brain showed no acute events -EEG interpreted as abnormal record due to diffuse slowing noted throughout the recording, suggestive of encephalopathic process and/or drug effect, possibilities of postictal state cannot be totally excluded. Clinical correlation is in order -MRI brain not obtained-> patient has metal in her body -Repeat CT head with no acute findings -Reorientation as needed -Ammonia 42, B12 1823, TSH 1.5 -BuSpar, fentanyl patch, Seroquel, [place], Xanax, gabapentin Cardio: Acute Heart failure with reduced EF, h/o chronic heart block s/p PPM, HTN, CAD s/p PCI (2004), Moderate pulmonary HTN, cardiomyopathy -s/p vasopressor support with levophed -11/04 echocardiogram shows EF 30 to 35%, Moderate pulmonary HTN RVSP 49 -Cardiology consulted, appreciate recommendations -Continue beta-charleen and statin therapy -Started midodrine -Not on aspirin due to allergy -Blood pressure monitoring per protocol -As needed nitroglycerin Resp: Acute hypoxic respiratory failure secondary to bilateral pneumonia, bilateral pleural effusion. Right pneumothorax (resolved) -COVID-19 PCR negative -Intubated on 11/06 with 6.00 ETT at 18 at the lip and changed over bougie on 11/11-7.50 ETT at 20 at the lip -See RT notes for titration -PSV today -Surgery consult for trach -Received trach/PEG on 11/26 -S/p bedside bronchoscopy on 11/11 complicated by pneumothorax -S/p chest tube placement for right pneumothorax and dislodgment by patient on 11/15 -ABG/CXR per CCM -VAP bundle -Right chest wall ultrasound showed pleural effusion s/p chest tube -Review right chest wall ultrasound shows small to mod pleural effusion -Restarted on Lasix -12/11 US thoracentesis removed 1L fluid -SPO2 monitoring -Mucomyst every 8 -Albuterol every 8 GI: S/p GI bleed, duodenal ulcer, transaminitis -GI consulted, appreciate recommendations -Nutrition consult for tube feeding -BR: Senokot, MiraLAX -s/p peg 11/26 -H2 charleen -Carafate -24-hour 185 ml -BM 12/07 -Gastric occult positive : Urinary retention, hyponatremia, hypochloremia -Gamble catheter in place -Strict intake and output -Trend BMP ID: Septic shock (POA), bilateral pneumonia, bacteremia -Infectious disease consulted, appreciate recommendations -COVID-19 PCR negative -Presented with fevers, leukocytosis and hypotension -11/04 blood cultures positive with a group B strep bacteremia 12/19 however repeat blood cultures on the with no growth to date -Echo showed no evidence of vegetation -ABX therapy: Ceftriaxone (), vancomycin (11/05, ), clindamycin ), cefepime , ) -Monitor WBC and fever curve -Recultured on 11/11 with NGTD -Bedside bronchoscopy for mucous plug on CXR 11/11 Heme: Acute DVT in the right external iliac vein, common femoral vein, superior aspect of femoral vein, Acute microcytic anemia -Evidenced on bilateral upper lower extremity ultrasound -S/p 5 unit PRBC -Trend CBC -Transfuse for hemoglobin less than 7 -S/p IVC filter Endo: h/o DM and hypothyroidism -Continue home Synthroid -SSI -Accu-Cheks every 6 -Avoid hypoglycemia The high probability of a clinically significant, sudden or life threatening deterioration of the [multi] system(s) required my full and direct attention, intervention and personal management. The aggregate critical care time was [90] minutes. This time is in addition to time spent performing reported procedures but includes the following: [x] Data Review and interpretation [x] Patient assessment and monitoring of vital signs [x] Documentation [x] Medication orders and management Disposition Plan: icu Total Time Spent with Patient (Minutes): 90 History Interval history: This is an 82-year-old female with DM, HTN , CHB s/p PPM, CAD s/p PCI and arthritis who presented to the emergency department on 11/04 for shortness of breath ongoing for the past 3 days, cough and according to family a fever of 102.2. Upon arrival of EMS patient was found to be tachypneic and hypoxic with SPO2 of 76% on room air which later improved to 88% on nonrebreather. Work-up in the emergency department included a CXR which showed bilateral interstitial pulmonary edema with bilateral pleural effusions and bibasilar opacities, leukocytosis and anemia with a hemoglobin of 6.1. Patient was admitted to the hospitalist service with acute anemia, acute hypoxic respiratory failure, bilateral pneumonia and COVID-19 PUI with consults to pulmonology, infectious disease and later cardiology. Patient was eventually intubated in the emergency department on 11/06. Hospital Course to date: 11/04/2021: Empiric therapy with iv levaquin/vancomycin. COVID PCR pending. Will consult ID. PCCM consulted, will follow recs. Hypotensive this AM, ordered bolus and fluids at 150 cc/hr. May require pressor support if bp does not improve. 11/05/2021: GBS on bcx +, currently on rocephin IV. Currently on bipap due to respiratory distress overnight. Worsening BL opacities on CXR. May be volume overload vs pneumonia. Unfortunately bp too low for lasix at this point. WIll continue levophed and bipap. Once able to tolerate, may do trial of albumin/lasix. Call attempt made to Niraj, no response. Will try again tomorrow to update. 11/06/2021: Decompensated overnight requiring intubation. CXR shows worsening interstitial infiltrates. Currenlty on dopamine, levophed, vasopressin. PICC line ordered. Advised RN to place gamble for I/O monitoring. Would benefit from diuresis but very volume overloaded. Prognosis guarded 11/08: Off sedation this am, remains unresponsive only grimace to pain. Hold all sedatives agents for now, patient is off pressors this am. Hypernatremia from today's lab- D5W X1bag, and low K repleted, repeat lab in the am. Severe constipation also noted from KUB, BR added. 11/09: Sudden SPO2 drop in the 60s this am. Patient was manually bagged and deep suctioned. Patient is currently stable on the vent, repeat CXR with no significant change. D/w CCM Mucomyst and brochodilator added. Patient mentation is unchanged, continue to hold off on sedative agents. Neurology consulted. 11/10: Acute DVT noted on bilateral lower extremity Doppler ultrasound therefore she was started on Lovenox treatment dose. Failed SBT. Hypernatremia and hyperchloremia noted, free water flush adjusted. 11/11: Patient noted to be febrile with increasing of the cytosis, UA/BC sent and CXR ordered. ID escalated antibiotics to cefepime. CXR demonstrated mucous plug, bedside bronchoscopy was performed and O ETT was changed over bougie from 6 cm to 7.5. Patient was noted to have a pneumothorax postprocedure and chest tube was placed. Family updated by [facility]. Free water flush increased and will add Jaswant supplementation. 11/12: Patient not noted to follow commands, hypernatremia worsen/persist, increasing free water flush, potassium and magnesium and phosphorus repleted. Hemoglobin noted to be 7.1/24.5 from 7.03/12 yesterday. We will continue to trend and monitor. Vent changes per CCM. Repeat CXR showed no residual pneumothorax. Consider waterseal tomorrow. Given persistent leukocytosis antibiotics escalated to cefepime per ID. 11/13: Remains on cefepime and vancomycin, vent changes per CCM. Anemia noted and given 1 unit PRBC. And beta-charleen held in setting of Levophed drip infusing. Remains on fentanyl drip. 11/14: Patient put on CPAP trial by [facility], will continue chest tube until after extubation. Will rest on assist control. CT brain was cancelled by plastic card grader cardroom and reordered. 11/15: Patient removed chest tube overnight. Will obtain cxr. remains on low dose levo. CTH completed with no acute findings. RT to place on CPAP. 11/16: Hypernatremia/hyperchloremia noted on the increase of day water flushes. Anemia noted and ordered PRBC. asked RT to place on cpap but not done yet 11/17: Patient remains on the vent, awake and following commands. H&H stable s/p 2units PRBCs. GI on consult, no intervention at this time. Will continue protonix gtt and serial H&H Q6hrs. Keep patient NPO for now, D5w added for hypernatremia and NPO status. Plan for IVC filter placement today by V[facility]. 11/18: Patient is s/p IVC filter. H&H continue to trend down, hbg 6.1 this am, 1 unit of PRBCs ordered. Plan for possible EGD today by GI. Keep patient NPO, continue PPI drip and serial H&H Q6hrs. Electrolytes repleted, repeat lab in the am 11/19: S/p EGD- larger duodenal ulcer noted, see operative note. GI recommendations noted also noted. H&H stable this am. Keep patient on protonix gtt for now. Will keep patient NPO, continue IVF and serial H&H for now. Electrolytes repleted, repeat labs in the am 11/20: Very agitated and restless this am, fentanyl gtt resumed. Patient remains on protonix gtt, H&H remains stable. Will switch protonix gtt to IV BID, continue carafate and okay to resume meds at this time. Will F/u with GI to see if TF can be resumed. Gamble was reinserted overnight for retention. Electrolytes repleted, repeat in the am. Plan for possible PST today for possible extubation per CCM. 11/21: Patient is now on seroquel and patient's home buspar resumed. Patient more calm this morning, fentanyl gtt is off. H&H remains stable and patient is tolerating TF. Patient had a runs of Vtach/PVCs this am, BB added per Cardio. Continue daily PS and wean trial for possible extubation. 11/22: Back on fentanyl gtt overnight , RASS o to -1, following commands. Patient failed PST this am due to increased work of breathing and low SPO2, ABG pending. Patient is also with worsen pitting edema, lasix is still on hold. Will discuss with cardio and CCM to possibly resume lasix. 11/23: [facility]IA DEL CAR[facility] overnight. Patient failed PST again this am. Per CCM plan for possible trach and PEG, hold off on IV lasix for now. General surgery consulted and family is aware of possible Trach and PEG. 11/24: Trach/PEG pending this week, continue SBT/SAT as tolerated. No acute events reported overnight. 11/25: Patient was n.p.o. overnight and will remain n.p.o. tonight for trach/PEG tomorrow morning. She failed to support trial again. KUB obtained due to distended belly. 11/26: Patient scheduled for tracheostomy and PEG tube placement today, has been n.p.o. since midnight. No acute events reported overnight. [facility] ordered simethicone scheduled. 11/27: No acute events reported overnight, patient received trach/PEG yesterday. Has been on feedings since last night. Still awaiting LTAC placement. 11/28: Patient magnesium repleted, repeat a.m. labs, SBT 11/29: Patient complains of chest pain but ECG obtained which showed no acute findings, ordered troponin. Patient failed CPAP yesterday and was trialed again today. levophed was restarted but will aggressively wean 11/30: Patient failed SBT. Continue supportive care. Started gabapentin today 12/01: [facility] overnight. Continue daily PST. Case management to arrange possible placement 12/02: Report of dark stools overnight, patient is hemodynamically stable. H&H stable, patient is on PPI. Will continue to trend H&H. Continue daily PST as tolerated. Awaiting LTAC vs SNF placement. 12/03: Hypotensive overnight, requiring low dose pressors. S/p X3 days of gentle diurese. Will continue to monitor, wean off pressors as tolerated for MAP of 65. Patient Failed PST yesterday, case management to follow up with insurance for possible LTAC placement. Continue daily PST as tolerated. PT eval and treat ordered. 12/04: Increased agitation and anxiety overnight, remains on buspar and seroquel, trazadone added to promote rest. Patient is now working with PT, keep patient engage and awake during the day so she can rest at night. No BM for over 5 days, BR was adjusted. Patient did not tolerate PST again yesterday, continue daily PST as tolerated. Continue to titrate pressor for MAP above 65. Pending possible LTAC placement, case management to arrange. 12/05: Still not getting much rest overnight, will add melatonin for sleep. Continue to engage patient during the day and promote rest at night. TF was held due to concern for possible bleeding, H&H remains stable and stools normal this am. Resume TF and continue PPI and carafate. Remains on low dose levophed, titrate as tolerated. Continue daily PST. Possible LTAC placement, awaiting approval. 12/06: [facility] DEL CAR[facility] overnight. Patient rested overnight. Continue supportive measures. Daily PST as tolerated. Awaiting possible LTAC placement 12/07: [facility]IA DEL CARMEN overnight. Plan for Tpiece trial today. Continue current supportive measures. Possible LTAC placement 12/08: Patient placed on pressure support trial again today, started on Xanax, no acute events reported overnight. Awaiting insurance approval for LTAC. 12/09: Levophed discontinued, LTAC transfer denied, started on midodrine and Lasix, ultrasound chest pending, started on Xanax 0.[address] De León updated family at bedside today. Started on Dilaudid every 3 hours as needed. 12/10: Patient placed on CPAP trial this morning, no acute events reported overnight. Will order ultrasound-guided thoracentesis. 12/11: Patient had a thoracentesis today, will decrease Xanax dosage and continue midodrine and diuresing. Patient failed CPAP today. 12/12: Patient not tolerate CPAP trials today, no acute events reported overnight 12/13: No acute events overnight. continue PSV trials as tolerated. Daughter updated at bedside Hospitalist Physical - Physical exam Narrative exam: General appearance: Present: no acute distress, other (Trah and on the vent) - EENT Eyes: Present: PERRL, EOM intact ENT: hearing intact, clear oral mucosa, dentition normal - Neck Neck: Present: normal ROM - Respiratory Respiratory effort: normal Respiratory: bilateral: diminished - Cardiovascular Rhythm: regular Heart Sounds: Present: S1 & S2. Absent: systolic murmur - Extremities Extremities: no ischemia, pulses intact, pulses symmetrical, No edema, normal temperature, normal color Peripheral Pulses: within normal limits - Abdominal General gastrointestinal: soft, non-tender, non-distended, normal bowel sounds - Integumentary Integumentary: Present: warm, dry - Psychiatric Psychiatric: cooperative - Neurologic Neurologic: CNII-XII intact, no focal deficits, moves all extremities - Allied Health Allied health notes reviewed: nursing, RT, social work - Constitutional Vitals: Temp Pulse Resp BP Pulse Ox 98.5 F 90 15 133/55 100 12/13/21 09:23 12/13/21 13:00 12/13/21 13:00 12/13/21 13:12/13/21 13:00 General appearance: Present: no acute distress, other (Trah and on the vent) HEART Score - HEART Score Troponin: Troponin T 0.045 ng/mL (0.00-0.029) H 11/29/21 20:15 Results - Labs CBC & Chem 7: 12/13/21 04:00 12/13/21 04:00 Labs: Laboratory Last Values WBC 8.8 K/mm3 (4.5-11.0) 12/13/21 04:00 RBC 2.73 M/mm3 (3.65-5.03) L 12/13/21 04:00 Hgb 7.4 gm/dl (10.1-14.3) L 12/13/21 04:00 Hct 22.8 % (30.3-42.9) L 12/13/21 04:00 MCV 84 fl (79-97) 12/13/21 04:00 MCH 27 pg (28-32) L 12/13/21 04:00 MCHC 32 % (30-34) 12/13/21 04:00 RDW 20.5 % (13.2-15.2) H 12/13/21 04:00 Plt Count 252 K/mm3 (140-440) 12/13/21 04:00 Add Manual Diff Complete 11/16/21 15:25 Total Counted 100 11/16/21 15:25 Seg Neutrophils % Nail Puller 11/06/21 15:50 Seg Neuts % (Manual) 87.0 % (40.0-70.0) H 11/16/21 15:25 Band Neutrophils % 0 % 11/16/21 15:25 Lymphocytes % (Manual) 8.0 % (13.4-35.0) L 11/16/21 15:25 Reactive Lymphs % (Man) 0 % 11/16/21 15:25 Monocytes % (Manual) 5.0 % (0.0-7.3) 11/16/21 15:25 Eosinophils % (Manual) 0 % (0.0-4.3) 11/16/21 15:25 Basophils % (Manual) 0 % (0.0-1.8) 11/16/21 15:25 Metamyelocytes % 0 % 11/16/21 15:25 Myelocytes % 0 % 11/16/21 15:25 Promyelocytes % 0 % 11/16/21 15:25 Blast Cells % 0 % 11/16/21 15:25 Nucleated RBC % Not Reportable 11/16/21 15:25 Seg Neutrophils # Man 15.0 K/mm3 (1.8-7.7) H 11/16/21 15:25 Band Neutrophils # 0.0 K/mm3 11/16/21 15:25 Lymphocytes # (Manual) 1.4 K/mm3 (1.2-5.4) 11/16/21 15:25 Abs React Lymphs (Man) 0.0 K/mm3 11/16/21 15:25 Monocytes # (Manual) 0.9 K/mm3 (0.0-0.8) H 11/16/21 15:25 Eosinophils # (Manual) 0.0 K/mm3 (0.0-0.4) 11/16/21 15:25 Basophils # (Manual) 0.0 K/mm3 (0.0-0.1) 11/16/21 15:25 Metamyelocytes # 0.0 K/mm3 11/16/21 15:25 Myelocytes # 0.0 K/mm3 11/16/21 15:25 Promyelocytes # 0.0 K/mm3 11/16/21 15:25 Blast Cells # 0.0 K/mm3 11/16/21 15:25 WBC Morphology Not Reportable 11/16/21 15:25 Hypersegmented Neuts Not Reportable 11/16/21 15:25 Hyposegmented Neuts Not Reportable 11/16/21 15:25 Hypogranular Neuts Not Reportable 11/16/21 15:25 Smudge Cells Not Reportable 11/16/21 15:25 Toxic Granulation Not Reportable 11/16/21 15:25 Toxic Vacuolation Not Reportable 11/16/21 15:25 Dohle Bodies Not Reportable 11/16/21 15:25 Pelger-Huet Anomaly Not Reportable 11/16/21 15:25 Irina Rods Not Reportable 11/16/21 15:25 Platelet Estimate Consistent w auto 11/16/21 15:25 Clumped Platelets Rare 11/16/21 15:25 Plt Clumps, EDTA Not Reportable 11/16/21 15:25 Large Platelets Not Reportable 11/16/21 15:25 Giant Platelets Not Reportable 11/16/21 15:25 Platelet Satelliting Not Reportable 11/16/21 15:25 Plt Morphology Comment Not Reportable 11/16/21 15:25 RBC Morphology Not Reportable 11/16/21 15:25 Dimorphic RBCs Not Reportable 11/16/21 15:25 Polychromasia Not Reportable 11/16/21 15:25 Hypochromasia 2+ 11/16/21 15:25 Poikilocytosis Not Reportable 11/16/21 15:25 Anisocytosis 2+ 11/16/21 15:25 Microcytosis Not Reportable 11/16/21 15:25 Macrocytosis Not Reportable 11/16/21 15:25 Spherocytes Not Reportable 11/16/21 15:25 Pappenheimer Bodies Not Reportable 11/16/21 15:25 Sickle Cells Not Reportable 11/16/21 15:25 Target Cells 2+ 11/16/21 15:25 Tear Drop Cells Not Reportable 11/16/21 15:25 Ovalocytes Not Reportable 11/16/21 15:25 Helmet Cells Not Reportable 11/16/21 15:25 [place] Bodies Not Reportable 11/16/21 15:25 Strawn Rings Not Reportable 11/16/21 15:25 Malcom Cells Not Reportable 11/16/21 15:25 Bite Cells Not Reportable 11/16/21 15:25 Crenated Cell Not Reportable 11/16/21 15:25 Elliptocytes Not Reportable 11/16/21 15:25 Acanthocytes (Spur) Not Reportable 11/16/21 15:25 Rouleaux Not Reportable 11/16/21 15:25 Hemoglobin C Crystals Not Reportable 11/16/21 15:25 Schistocytes Not Reportable 11/16/21 15:25 Malaria parasites Not Reportable 11/16/21 15:25 Godfrey Bodies Not Reportable 11/16/21 15:25 Hem Pathologist Commnt No 11/16/21 15:25 PT 16.9 Sec. (12.2-14.9) H 11/26/21 05:00 INR 1.24 (0.87-1.13) H 11/26/21 05:00 APTT 29.2 Sec. (24.2-36.6) 11/26/21 05:00 D-Dimer 2655.00 ng/mlDDU (0-234) H 11/11/21 04:28 ABG pH 7.449 pH Units (7.350-7.450) 11/21/21 16:00 ABG pCO2 32.1 mm Hg 11/21/21 16:00 ABG pO2 114.2 mm Hg (80.0-90.0) H 11/21/21 16:00 ABG HCO3 21.8 mmol/L (20.0-26.0) 11/21/21 16:00 ABG O2 Saturation 98.3 % (95.0-99.0) 11/21/21 16:00 ABG O2 Content 12.5 (0.0-44) 11/21/21 16:00 ABG Base Excess -1.7 mmol/L (-2.0-3.0) 11/21/21 16:00 ABG Hemoglobin 9.1 gm/dl (12.0-16.0) L 11/21/21 16:00 ABG Carboxyhemoglobin 1.9 % (0.0-5.0) 11/21/21 16:00 ABG Methemoglobin 0.5 % (0.0-1.5) 11/21/21 16:00 Oxyhemoglobin 96.0 % (95.0-99.0) 11/21/21 16:00 FiO2 30 % 11/21/21 16:00 Sodium 134 mmol/L (137-145) L 12/13/21 04:00 Potassium 3.7 mmol/L (3.6-5.0) 12/13/21 04:00 Chloride 96.7 mmol/L (98-107) L 12/13/21 04:00 Carbon Dioxide 27 mmol/L (22-30) 12/13/21 04:00 Anion Gap 14 mmol/L 12/13/21 04:00 BUN 23 mg/dL (7-17) H 12/13/21 04:00 Creatinine 0.5 mg/dL (0.6-1.2) L 12/13/21 04:00 Estimated GFR > 60 ml/min 12/13/21 04:00 BUN/Creatinine Ratio 46 % 12/13/21 04:00 Glucose 131 mg/dL (65-100) H 12/13/21 04:00 POC Glucose 143 mg/dL (70-105) H 12/13/21 12:11 Lactic Acid 3.70 mmol/L (0.7-2.0) H* 11/03/21 22:32 Calcium 8.1 mg/dL (8.4-10.2) L 12/13/21 04:00 Phosphorus 3.50 mg/dL (2.5-4.5) 12/08/21 04:00 Magnesium 2.20 mg/dL (1.7-2.3) 12/08/21 04:00 Ferritin 52.6 ng/mL (10.0-200.0) 11/05/21 06:11 Total Bilirubin 0.50 mg/dL (0.1-1.2) 11/17/21 05:56 Direct Bilirubin < 0.2 mg/dL (0-0.2) 11/11/21 04:28 Indirect Bilirubin 0.1 mg/dL 11/11/21 04:28 AST 36 units/L (5-40) 11/17/21 05:56 ALT 47 units/L (7-56) 11/17/21 05:56 Alkaline Phosphatase 107 units/L (35-129) 11/17/21 05:56 Ammonia 42.0 umol/L (25-60) 11/10/21 14:08 Lactate Dehydrogenase 187 units/L (91-180) H 11/05/21 06:11 Troponin T 0.045 ng/mL (0.00-0.029) H 11/29/21 20:15 C-Reactive Protein 22.20 mg/dL (0.00-1.30) H 11/05/21 06:11 NT-Pro-B Natriuret Pep 7895 pg/mL (0-900) H 11/03/21 22:32 Total Protein 5.1 g/dL (6.3-8.2) L 11/17/21 05:56 Albumin 2.2 g/dL (3.9-5) L 11/17/21 05:56 Albumin/Globulin Ratio 0.8 % 11/17/21 05:56 Triglycerides 59 mg/dL (2-149) 11/29/21 20:15 Cholesterol 74 mg/dL (50-199) 11/29/21 20:15 LDL Cholesterol Direct 25 mg/dL (50-130) L 11/29/21 20:15 HDL Cholesterol 41 mg/dL (40-59) 11/29/21 20:15 Cholesterol/HDL Ratio 1.80 % 11/29/21 20:15 Vitamin B12 1823 pg/mL (211-911) H 11/10/21 14:08 TSH 1.510 mlU/mL (0.270-4.200) 11/10/21 14:08 Urine Color Yellow (Yellow) 11/11/21 09:00 Urine Turbidity Slightly-cloudy (Clear) 11/11/21 09:00 Urine pH 5.0 (5.0-7.0) 11/11/21 09:00 Ur Specific [place] 1.009 (1.003-1.030) 11/11/21 09:00 Urine Protein <15 mg/dl mg/dL (Negative) 11/11/21 09:00 Urine Glucose (UA) Neg mg/dL (Negative) 11/11/21 09:00 Urine Ketones Neg mg/dL (Negative) 11/11/21 09:00 Urine Blood Mod (Negative) 11/11/21 09:00 Urine Nitrite Neg (Negative) 11/11/21 09:00 Urine Bilirubin Neg (Negative) 11/11/21 09:00 Urine Urobilinogen < 2.0 mg/dL (<2.0) 11/11/21 09:00 Ur Leukocyte Esterase Neg (Negative) 11/11/21 09:00 Urine WBC (Auto) < 1.0 /HPF (0.0-6.0) 11/11/21 09:00 Urine RBC (Auto) < 1.0 /HPF (0.0-6.0) 11/11/21 09:00 Coronavirus (PCR) Negative (Negative) 11/10/21 08:30 Blood Type O POSITIVE 12/12/21 04:30 Antibody Screen Negative 12/12/21 04:30 Crossmatch See Detail 11/18/21 10:45 Gamble/IV: Voiding Method Indwelling Catheter Active Medications - Current Medications Current Medications: Generic Name Dose Route Start Last Admin Trade Name Freq PRN Reason Stop Dose Admin Hydrocodone Bitart/Acetaminophen 1 each 11/21/21 10:00 12/13/21 13:00 Hydrocodone/Acetaminophen 10-325mg Tab FEEDTUBE 1 each TID YOSSI Administration Alprazolam 0.25 mg 12/11/21 16:00 12/13/21 07:55 Alprazolam 0.25 Mg Tab PO 0.25 mg Q8H YOSSI Administration Lipase/Protease/Amylase 1 each 11/08/21 11:09 Lipase 10,500/Protease 25,000/Amylase 43,750 (Units) Dr Lema FEEDTUBE PRN PRN For Clogged Feeding Tube Buspirone HCl 7.5 mg 11/17/21 22:00 12/13/21 09:52 Buspirone 5 Mg Tab PO 7.5 mg BID YOSSI Administration Dextrose 0 ml 11/10/21 10:52 11/21/21 16:27 Dextrose 10% *Hypoglycemia IV 50 ml PRN PRN Administration Hypoglycemia Docusate Sodium 100 mg 12/04/21 11:00 12/13/21 10:19 Docusate Sodium 100 Mg/10 Ml Oral Liqd PO Not Given BID YOSSI Fentanyl 1 applic 11/17/21 13:00 12/11/21 09:09 Fentanyl 25 Mcg/Hr Patch 72hr TD 1 applic Q3D YOSSI Administration Furosemide 20 mg 12/09/21 10:00 12/13/21 09:52 Furosemide 20 Mg Tab PO 20 mg QDAY YOSSI Administration Gabapentin 100 mg 12/01/21 10:00 12/13/21 09:53 Gabapentin 100 Mg Cap PO 100 mg QDAY YOSSI Administration Hydromorphone HCl 0.5 mg 12/08/21 20:06 12/13/21 09:52 Hydromorphone 1 Mg/1 Ml Inj IV 0.5 mg Q3H PRN Administration Pain, Moderate (4-6) Hydrophilic Ointment 1 applic 11/06/21 04:02 Lip Therapy Vaseline TP Q2HR PRN Dry Lips Lansoprazole 30 mg 11/24/21 22:00 12/13/21 09:52 Lansoprazole 30 Mg Solutab FEEDTUBE 30 mg BID YOSSI Administration Levothyroxine Sodium 125 mcg 11/05/21 07:00 12/13/21 05:25 Levothyroxine 125 Mcg Tab PO 125 mcg DAILY@0600 YOSSI Administration Melatonin 5 mg 12/05/21 22:00 12/12/21 22:17 Melatonin 5 Mg Tab PO 5 mg QHS YOSSI Administration Metoprolol Tartrate 6.25 mg 12/08/21 22:52 12/13/21 09:53 Metoprolol Tartrate 25 Mg Tab PO 6.25 mg BID YOSSI Administration Midodrine 10 mg 12/09/21 08:00 12/13/21 12:01 Midodrine 5 Mg Tab PO Not Given TID@0800,1200,1600 [facility] Multi-Ingred Cream/Lotion/Oil/Oint 1 applic 11/06/21 04:02 Mineral Oil/Petrolatum, White Ophth Oint 3.5 Gm OU Q4HR PRN Dry Eye(s) Nitroglycerin 0.4 mg 11/30/21 11:36 Nitroglycerin 0.4 Mg Tab Subl SL .Q5MIN PRN Chest Pain Ondansetron HCl 4 mg 12/05/21 10:00 12/08/21 05:17 Ondansetron 4 Mg/2 Ml Inj IV 4 mg Q8H PRN Administration Nausea And Vomiting Polyethylene Glycol 17 gm 12/02/21 10:00 12/13/21 10:19 Polyethylene Glycol 3350 17 Gm Powder PO Not Given QDAY [facility] Pravastatin Sodium 20 mg 11/18/21 22:00 12/11/21 22:36 Pravastatin 20 Mg Tab PO 20 mg QHS YOSSI Administration Quetiapine Fumarate 50 mg 12/01/21 22:00 12/12/21 22:16 Quetiapine 25 Mg Tab PO 50 mg QHS YOSSI Administration Senna 17.6 mg 11/08/21 22:00 12/13/21 10:19 Sennosides Oral Liqd 8.8 Mg/5 Ml Oral Liqd PO Not Given Q12HR YOSSI Simple Syrup 15 ml 11/08/21 11:09 Simple Syrup 15 Ml FEEDTUBE PRN PRN Hypoglycemia Simple Syrup 30 ml 11/08/21 11:09 Simple Syrup 15 Ml FEEDTUBE PRN PRN Hypoglycemia Sodium Bicarbonate 325 mg 11/08/21 11:09 Sodium Bicarbonate 325 Mg Tab FEEDTUBE PRN PRN For Clogged Feeding Tube Sodium Chloride 10 ml 11/04/21 10:00 12/13/21 09:51 Sodium Chloride 0.9% 10 Ml Flush Syringe IV 10 ml BID YOSSI Administration Sodium Chloride 10 ml 11/04/21 02:03 Sodium Chloride 0.9% 10 Ml Flush Syringe IV PRN PRN LINE FLUSH Sucralfate 1 gm 11/18/21 16:30 12/13/21 12:08 Sucralfate 1 Gm/10 Ml Oral Liqd PO 1 gm ACHS [facility] Administration Trazodone HCl 50 mg 12/04/21 22:00 12/12/21 22:17 Trazodone 50 Mg Tab PO 50 mg QHS YOSSI Administration Nutrition/Malnutrition Assess - Dietary Evaluation Nutrition/Malnutrition Findings: Nutrition Notes Start: 11/04/21 17:16 Freq: Status: Active Protocol: Document 12/08/21 10:17 YOVANI (Rec: 12/08/21 10:27 [facility] [id number]) Nutrition Notes Initial or Follow up Reassessment Current Diagnosis Diabetes,Hypertension,Heart Failure,Respiratory Failure Other Pertinent Diagnosis Bilat pneu, acute GIB Current Diet TF - Vital AF 1.2 at 40ml/hr Labs/Tests Na 135 BUN 23 H/H 7.7/23.5 Pertinent Medications Colace, Miralax Height 5 ft Weight 62.4 kg Boyd Body Weight (kg) 45.45 BMI 26.9 Weight Status Appropriate Subjective/Other Information Trach and PEG placed on 11/26. Pt remains on vent support. BM x 1 on yesterday; previous report of no BM x 5 days on . Pt tolerating TF. Percent of energy/protein needs met: 95% energy 96% pro Burn Absent Trauma Absent #1 Nutrition Diagnosis Inadequate oral intake Diagnosis Progress(for reassessment Continues documentation) Is patient on ventilator? Yes Is Patient Ambulatory and/or Out of Bed No REE-([facility]-confined to bed) 1207.824 Calculation Used for Recommendations [facility] Additional Notes Pro needs 1.2-2g/k-125g/ day Fluid needs 1ml/kcal Nutrition Intervention Nutrition Support: Continue Vital AF 1.2 at 40ml/ hr. Provide 65ml water flush q4h. Kcal 1,152 Protein (gm) 72 Carbohydrates (gm) 106 Fat (gm) 52 Fluid (mL) 779 Fiber (gm) 5 Goal #1 TF tolerance Goal #2 TF to meet at least 75% energy and pro needs Follow-Up By: 12/15/21 Additional Comments F/U: stable TF, vent status, wt <LEAH ALFONSO E - Last Filed: 12/14/21 07:17> Assessment and Plan Assessment and plan: I saw and evaluated the patient. I agree with the findings and the plan of care as documented in the Nurse Practitioner's~note, with the following corrections and additions. Hospitalist Physical - Constitutional Vitals: Temp Pulse Resp BP Pulse Ox 102.9 F H 81 15 102/32 98 12/14/21 04:00 12/14/21 06:00 12/14/21 06:00 12/14/21 06:00 12/14/21 06:00 HEART Score - HEART Score Troponin: Troponin T 0.045 ng/mL (0.00-0.029) H 11/29/21 20:15 Results - Labs CBC & Chem 7: 12/14/21 04:20 12/14/21 04:20 Labs: Laboratory Last Values WBC 8.6 K/mm3 (4.5-11.0) 12/14/21 04:20 RBC 2.39 M/mm3 (3.65-5.03) L 12/14/21 04:20 Hgb 6.5 gm/dl (10.1-14.3) L 12/14/21 04:20 Hct 20.3 % (30.3-42.9) L 12/14/21 04:20 MCV 85 fl (79-97) 12/14/21 04:20 MCH 27 pg (28-32) L 12/14/21 04:20 MCHC 32 % (30-34) 12/14/21 04:20 RDW 20.3 % (13.2-15.2) H 12/14/21 04:20 Plt Count 235 K/mm3 (140-440) 12/14/21 04:20 Add Manual Diff Complete 11/16/21 15:25 Total Counted 100 11/16/21 15:25 Seg Neutrophils % Nail Puller 11/06/21 15:50 Seg Neuts % (Manual) 87.0 % (40.0-70.0) H 11/16/21 15:25 Band Neutrophils % 0 % 11/16/21 15:25 Lymphocytes % (Manual) 8.0 % (13.4-35.0) L 11/16/21 15:25 Reactive Lymphs % (Man) 0 % 11/16/21 15:25 Monocytes % (Manual) 5.0 % (0.0-7.3) 11/16/21 15:25 Eosinophils % (Manual) 0 % (0.0-4.3) 11/16/21 15:25 Basophils % (Manual) 0 % (0.0-1.8) 11/16/21 15:25 Metamyelocytes % 0 % 11/16/21 15:25 Myelocytes % 0 % 11/16/21 15:25 Promyelocytes % 0 % 11/16/21 15:25 Blast Cells % 0 % 11/16/21 15:25 Nucleated RBC % Not Reportable 11/16/21 15:25 Seg Neutrophils # Man 15.0 K/mm3 (1.8-7.7) H 11/16/21 15:25 Band Neutrophils # 0.0 K/mm3 11/16/21 15:25 Lymphocytes # (Manual) 1.4 K/mm3 (1.2-5.4) 11/16/21 15:25 Abs React Lymphs (Man) 0.0 K/mm3 11/16/21 15:25 Monocytes # (Manual) 0.9 K/mm3 (0.0-0.8) H 11/16/21 15:25 Eosinophils # (Manual) 0.0 K/mm3 (0.0-0.4) 11/16/21 15:25 Basophils # (Manual) 0.0 K/mm3 (0.0-0.1) 11/16/21 15:25 Metamyelocytes # 0.0 K/mm3 11/16/21 15:25 Myelocytes # 0.0 K/mm3 11/16/21 15:25 Promyelocytes # 0.0 K/mm3 11/16/21 15:25 Blast Cells # 0.0 K/mm3 11/16/21 15:25 WBC Morphology Not Reportable 11/16/21 15:25 Hypersegmented Neuts Not Reportable 11/16/21 15:25 Hyposegmented Neuts Not Reportable 11/16/21 15:25 Hypogranular Neuts Not Reportable 11/16/21 15:25 Smudge Cells Not Reportable 11/16/21 15:25 Toxic Granulation Not Reportable 11/16/21 15:25 Toxic Vacuolation Not Reportable 11/16/21 15:25 Dohle Bodies Not Reportable 11/16/21 15:25 Pelger-Huet Anomaly Not Reportable 11/16/21 15:25 Irina Rods Not Reportable 11/16/21 15:25 Platelet Estimate Consistent w auto 11/16/21 15:25 Clumped Platelets Rare 11/16/21 15:25 Plt Clumps, EDTA Not Reportable 11/16/21 15:25 Large Platelets Not Reportable 11/16/21 15:25 Giant Platelets Not Reportable 11/16/21 15:25 Platelet Satelliting Not Reportable 11/16/21 15:25 Plt Morphology Comment Not Reportable 11/16/21 15:25 RBC Morphology Not Reportable 11/16/21 15:25 Dimorphic RBCs Not Reportable 11/16/21 15:25 Polychromasia Not Reportable 11/16/21 15:25 Hypochromasia 2+ 11/16/21 15:25 Poikilocytosis Not Reportable 11/16/21 15:25 Anisocytosis 2+ 11/16/21 15:25 Microcytosis Not Reportable 11/16/21 15:25 Macrocytosis Not Reportable 11/16/21 15:25 Spherocytes Not Reportable 11/16/21 15:25 Pappenheimer Bodies Not Reportable 11/16/21 15:25 Sickle Cells Not Reportable 11/16/21 15:25 Target Cells 2+ 11/16/21 15:25 Tear Drop Cells Not Reportable 11/16/21 15:25 Ovalocytes Not Reportable 11/16/21 15:25 Helmet Cells Not Reportable 11/16/21 15:25 [place] Bodies Not Reportable 11/16/21 15:25 Strawn Rings Not Reportable 11/16/21 15:25 [place] Cells Not Reportable 11/16/21 15:25 Bite Cells Not Reportable 11/16/21 15:25 Crenated Cell Not Reportable 11/16/21 15:25 Elliptocytes Not Reportable 11/16/21 15:25 Acanthocytes (Spur) Not Reportable 11/16/21 15:25 Rouleaux Not Reportable 11/16/21 15:25 Hemoglobin C Crystals Not Reportable 11/16/21 15:25 Schistocytes Not Reportable 11/16/21 15:25 Malaria parasites Not Reportable 11/16/21 15:25 Godfrey Bodies Not Reportable 11/16/21 15:25 Hem Pathologist Commnt No 11/16/21 15:25 PT 16.9 Sec. (12.2-14.9) H 11/26/21 05:00 INR 1.24 (0.87-1.13) H 11/26/21 05:00 APTT 29.2 Sec. (24.2-36.6) 11/26/21 05:00 D-Dimer 2655.00 ng/mlDDU (0-234) H 11/11/21 04:28 ABG pH 7.449 pH Units (7.350-7.450) 11/21/21 16:00 ABG pCO2 32.1 mm Hg 11/21/21 16:00 ABG pO2 114.2 mm Hg (80.0-90.0) H 11/21/21 16:00 ABG HCO3 21.8 mmol/L (20.0-26.0) 11/21/21 16:00 ABG O2 Saturation 98.3 % (95.0-99.0) 11/21/21 16:00 ABG O2 Content 12.5 (0.0-44) 11/21/21 16:00 ABG Base Excess -1.7 mmol/L (-2.0-3.0) 11/21/21 16:00 ABG Hemoglobin 9.1 gm/dl (12.0-16.0) L 11/21/21 16:00 ABG Carboxyhemoglobin 1.9 % (0.0-5.0) 11/21/21 16:00 ABG Methemoglobin 0.5 % (0.0-1.5) 11/21/21 16:00 Oxyhemoglobin 96.0 % (95.0-99.0) 11/21/21 16:00 FiO2 30 % 11/21/21 16:00 Sodium 130 mmol/L (137-145) L 12/14/21 04:20 Potassium 3.7 mmol/L (3.6-5.0) 12/14/21 04:20 Chloride 93.5 mmol/L (98-107) L 12/14/21 04:20 Carbon Dioxide 26 mmol/L (22-30) 12/14/21 04:20 Anion Gap 14 mmol/L 12/14/21 04:20 BUN 25 mg/dL (7-17) H 12/14/21 04:20 Creatinine 0.6 mg/dL (0.6-1.2) 12/14/21 04:20 Estimated GFR > 60 ml/min 12/14/21 04:20 BUN/Creatinine Ratio 42 % 12/14/21 04:20 Glucose 123 mg/dL (65-100) H 12/14/21 04:20 POC Glucose 131 mg/dL (70-105) H 12/14/21 05:06 Lactic Acid 3.70 mmol/L (0.7-2.0) H* 11/03/21 22:32 Calcium 8.0 mg/dL (8.4-10.2) L 12/14/21 04:20 Phosphorus 3.50 mg/dL (2.5-4.5) 12/08/21 04:00 Magnesium 2.20 mg/dL (1.7-2.3) 12/08/21 04:00 Ferritin 52.6 ng/mL (10.0-200.0) 11/05/21 06:11 Total Bilirubin 0.50 mg/dL (0.1-1.2) 11/17/21 05:56 Direct Bilirubin < 0.2 mg/dL (0-0.2) 11/11/21 04:28 Indirect Bilirubin 0.1 mg/dL 11/11/21 04:28 AST 36 units/L (5-40) 11/17/21 05:56 ALT 47 units/L (7-56) 11/17/21 05:56 Alkaline Phosphatase 107 units/L (35-129) 11/17/21 05:56 Ammonia 42.0 umol/L (25-60) 11/10/21 14:08 Lactate Dehydrogenase 187 units/L (91-180) H 11/05/21 06:11 Troponin T 0.045 ng/mL (0.00-0.029) H 11/29/21 20:15 C-Reactive Protein 22.20 mg/dL (0.00-1.30) H 11/05/21 06:11 NT-Pro-B Natriuret Pep 7895 pg/mL (0-900) H 11/03/21 22:32 Total Protein 5.1 g/dL (6.3-8.2) L 11/17/21 05:56 Albumin 2.2 g/dL (3.9-5) L 11/17/21 05:56 Albumin/Globulin Ratio 0.8 % 11/17/21 05:56 Triglycerides 59 mg/dL (2-149) 11/29/21 20:15 Cholesterol 74 mg/dL (50-199) 11/29/21 20:15 LDL Cholesterol Direct 25 mg/dL (50-130) L 11/29/21 20:15 HDL Cholesterol 41 mg/dL (40-59) 11/29/21 20:15 Cholesterol/HDL Ratio 1.80 % 11/29/21 20:15 Vitamin B12 1823 pg/mL (211-911) H 11/10/21 14:08 TSH 1.510 mlU/mL (0.270-4.200) 11/10/21 14:08 Urine Color Yellow (Yellow) 11/11/21 09:00 Urine Turbidity Slightly-cloudy (Clear) 11/11/21 09:00 Urine pH 5.0 (5.0-7.0) 11/11/21 09:00 Ur Specific [place] 1.009 (1.003-1.030) 11/11/21 09:00 Urine Protein <15 mg/dl mg/dL (Negative) 11/11/21 09:00 Urine Glucose (UA) Neg mg/dL (Negative) 11/11/21 09:00 Urine Ketones Neg mg/dL (Negative) 11/11/21 09:00 Urine Blood Mod (Negative) 11/11/21 09:00 Urine Nitrite Neg (Negative) 11/11/21 09:00 Urine Bilirubin Neg (Negative) 11/11/21 09:00 Urine Urobilinogen < 2.0 mg/dL (<2.0) 11/11/21 09:00 Ur Leukocyte Esterase Neg (Negative) 11/11/21 09:00 Urine WBC (Auto) < 1.0 /HPF (0.0-6.0) 11/11/21 09:00 Urine RBC (Auto) < 1.0 /HPF (0.0-6.0) 11/11/21 09:00 Coronavirus (PCR) Negative (Negative) 11/10/21 08:30 Blood Type O POSITIVE 12/12/21 04:30 Antibody Screen Negative 12/12/21 04:30 Crossmatch See Detail 12/12/21 04:30 Gamble/IV: Voiding Method Indwelling Catheter Active Medications - Current Medications Current Medications: Generic Name Dose Route Start Last Admin Trade Name Freq PRN Reason Stop Dose Admin Acetaminophen 650 mg 12/14/21 04:12 12/14/21 04:21 Acetaminophen 325 Mg/10.15 Ml Oral Liqd Unit Dose FEEDTUBE 650 mg Q6H PRN Administration Non Cardiac Pain or Temp>100.5 Hydrocodone Bitart/Acetaminophen 1 each 11/21/21 10:00 12/13/21 20:32 Hydrocodone/Acetaminophen 10-325mg Tab FEEDTUBE 1 each TID YOSSI Administration Alprazolam 0.25 mg 12/11/21 16:00 12/14/21 00:04 Alprazolam 0.25 Mg Tab PO 0.25 mg Q8H YOSSI Administration Lipase/Protease/Amylase 1 each 11/08/21 11:09 Lipase 10,500/Protease 25,000/Amylase 43,750 (Units) Dr Lema FEEDTUBE PRN PRN For Clogged Feeding Tube Buspirone HCl 7.5 mg 11/17/21 22:00 12/13/21 21:17 Buspirone 5 Mg Tab PO 7.5 mg BID YOSSI Administration Dextrose 0 ml 11/10/21 10:52 11/21/21 16:27 Dextrose 10% *Hypoglycemia IV 50 ml PRN PRN Administration Hypoglycemia Docusate Sodium 100 mg 12/04/21 11:00 12/13/21 21:19 Docusate Sodium 100 Mg/10 Ml Oral Liqd PO Not Given BID YOSSI Fentanyl 1 applic 11/17/21 13:00 12/11/21 09:09 Fentanyl 25 Mcg/Hr Patch 72hr TD 1 applic Q3D YOSSI Administration Furosemide 20 mg 12/09/21 10:00 12/13/21 09:52 Furosemide 20 Mg Tab PO 20 mg QDAY YOSSI Administration Gabapentin 100 mg 12/01/21 10:00 12/13/21 09:53 Gabapentin 100 Mg Cap PO 100 mg QDAY YOSSI Administration Hydromorphone HCl 0.5 mg 12/08/21 20:06 12/13/21 18:00 Hydromorphone 1 Mg/1 Ml Inj IV 0.5 mg Q3H PRN Administration Pain, Moderate (4-6) Hydrophilic Ointment 1 applic 11/06/21 04:02 Lip Therapy Vaseline TP Q2HR PRN Dry Lips Lansoprazole 30 mg 11/24/21 22:00 12/13/21 21:18 Lansoprazole 30 Mg Solutab FEEDTUBE 30 mg BID YOSSI Administration Levothyroxine Sodium 125 mcg 11/05/21 07:00 12/14/21 05:06 Levothyroxine 125 Mcg Tab PO 125 mcg DAILY@0600 [facility] Administration Melatonin 5 mg 12/05/21 22:00 12/13/21 21:19 Melatonin 5 Mg Tab PO 5 mg QHS [facility] Administration Metoprolol Tartrate 6.25 mg 12/08/21 22:52 12/13/21 21:18 Metoprolol Tartrate 25 Mg Tab PO 6.25 mg BID [facility] Administration Midodrine 10 mg 12/09/21 08:00 12/13/21 15:54 Midodrine 5 Mg Tab PO 10 mg TID@0800,1200,1600 [facility] Administration Multi-Ingred Cream/Lotion/Oil/Oint 1 applic 11/06/21 04:02 Mineral Oil/Petrolatum, White Ophth Oint 3.5 Gm OU Q4HR PRN Dry Eye(s) Nitroglycerin 0.4 mg 11/30/21 11:36 Nitroglycerin 0.4 Mg Tab Subl SL .Q5MIN PRN Chest Pain Ondansetron HCl 4 mg 12/05/21 10:00 12/08/21 05:17 Ondansetron 4 Mg/2 Ml Inj IV 4 mg Q8H PRN Administration Nausea And Vomiting Polyethylene Glycol 17 gm 12/02/21 10:00 12/13/21 10:19 Polyethylene Glycol 3350 17 Gm Powder PO Not Given QDAY [facility] Pravastatin Sodium 20 mg 11/18/21 22:00 12/13/21 21:19 Pravastatin 20 Mg Tab PO 20 mg QHS [facility] Administration Quetiapine Fumarate 50 mg 12/01/21 22:00 12/13/21 21:19 Quetiapine 25 Mg Tab PO 50 mg QHS [facility] Administration Senna 17.6 mg 11/08/21 22:00 12/13/21 21:20 Sennosides Oral Liqd 8.8 Mg/5 Ml Oral Liqd PO Not Given Q12HR YOSSI Simple Syrup 15 ml 11/08/21 11:09 Simple Syrup 15 Ml FEEDTUBE PRN PRN Hypoglycemia Simple Syrup 30 ml 11/08/21 11:09 Simple Syrup 15 Ml FEEDTUBE PRN PRN Hypoglycemia Sodium Bicarbonate 325 mg 11/08/21 11:09 Sodium Bicarbonate 325 Mg Tab FEEDTUBE PRN PRN For Clogged Feeding Tube Sodium Chloride 10 ml 11/04/21 10:00 12/13/21 21:17 Sodium Chloride 0.9% 10 Ml Flush Syringe IV 10 ml BID YOSSI Administration Sodium Chloride 10 ml 11/04/21 02:03 Sodium Chloride 0.9% 10 Ml Flush Syringe IV PRN PRN LINE FLUSH Sucralfate 1 gm 11/18/21 16:30 12/13/21 21:18 Sucralfate 1 Gm/10 Ml Oral Liqd PO 1 gm ACHS YOSSI Administration Trazodone HCl 50 mg 12/04/21 22:00 12/13/21 21:21 Trazodone 50 Mg Tab PO 50 mg QHS YOSSI Administration Nutrition/Malnutrition Assess - Dietary Evaluation Nutrition/Malnutrition Findings: Nutrition Notes Start: 11/04/21 17:16 Freq: Status: Active Protocol: Document 12/08/21 10:17 [facility] (Rec: 12/08/21 10:27 [facility] [id number]) Nutrition Notes Initial or Follow up Reassessment Current Diagnosis Diabetes,Hypertension,Heart Failure,Respiratory Failure Other Pertinent Diagnosis Bilat pneu, acute GIB Current Diet TF - Vital AF 1.2 at 40ml/hr Labs/Tests Na 135 BUN 23 H/H 7.7/23.5 Pertinent Medications Colace, Miralax Height 5 ft Weight 62.4 kg Boyd Body Weight (kg) 45.45 BMI 26.9 Weight Status Appropriate Subjective/Other Information Trach and PEG placed on 11/26. Pt remains on vent support. BM x 1 on yesterday; previous report of no BM x 5 days on . Pt tolerating TF. Percent of energy/protein needs met: 95% energy 96% pro Burn Absent Trauma Absent #1 Nutrition Diagnosis Inadequate oral intake Diagnosis Progress(for reassessment Continues documentation) Is patient on ventilator? Yes Is Patient Ambulatory and/or Out of Bed No REE-([facility]-confined to bed) 1207.824 Calculation Used for Recommendations [facility] Additional Notes Pro needs 1.2-2g/k-125g/ day Fluid needs 1ml/kcal Nutrition Intervention Nutrition Support: Continue Vital AF 1.2 at 40ml/ hr. Provide 65ml water flush q4h. Kcal 1,152 Protein (gm) 72 Carbohydrates (gm) 106 Fat (gm) 52 Fluid (mL) 779 Fiber (gm) 5 Goal #1 TF tolerance Goal #2 TF to meet at least 75% energy and pro needs Follow-Up By: 12/15/21 Additional Comments F/U: stable TF, vent status, wt
--- NOTE | 2021-12-13 18:09 | Progress Note ---
Assessment and Plan 81-year-old female with known history of diabetes mellitus, hypertension and arthritis brought to the emergency room via EMS for shortness of breath which has been ongoing for the past 3 days prior to come to the emergency room. Patient has been having some cough and shortness of breath. According to patient's , patient has also been having a fever of about 102.2 F. Upon arrival of EMS patient was found to be tachypneic with O2 saturation of 76% on room air which later improved to 88% on nonrebreather. Work-up in the emergency room , chest x-ray shows bilateral interstitial pulmonary edema with bilateral pleural effusions.. Bibasilar opacities which favors atelectasis. Lab reveals leukocytosis of 29. Hemoglobin of 6.1. Patient received blood transfusion and also checked for COVID-19. Patient Ivy virus test reported negative. Patient intubated and placed on mechanical ventilation. Patient presently sleeping. Not responding to verbal stimuli. Patient S/P tracheostomy. Patient presently on assist control, rate 15, Tidal volume 400, FIO2 35%, PEEP 6 and O2 saturation running 98%. I was told patient not tole rating spontaneous breathing trials. patient afebrile. No leukocytosis. Blood pressure 112/46, pulse 77, Respirations 15. Patients to days HGB 7.4. Chest xray 12/11/21 reported Diffuse bilateral pulmonary opacities most significant in the left lung and right upper lung .No pneumothorax. Patient is on Prevacid and Sucralfate. I spent critical care time of 40 minutes, reviewing the chart, examine the patient, review lab results, chest xray and talk to respiratory therapy and nursing staff and work out plan of treatment in this critically ill patient. - Patient Problems (1) Acute respiratory failure with hypoxia Current Visit: Yes Status: Acute Plan to address problem: Mechanical ventilation, assist control, rate 15, Tidal volue 400, FIO2 35%, PEEP 6 S/P tracheostomy. (2) Bilateral pneumonia Current Visit: Yes Status: Acute Plan to address problem: Patient afebrile. No leukocytosis. (3) Occult blood positive stool Current Visit: Yes Status: Acute Plan to address problem: Management as per gastroenterology. (4) Acute anemia Current Visit: Yes Status: Acute Plan to address problem: Patient received blood transfusion. (5) Suspected COVID-19 virus infection Current Visit: Yes Status: Acute Plan to address problem: Ivy virus PCR negative. Subjective Date of service: 12/13/21 Principal diagnosis: Septic shock; AHRF; Anemia; Pneumonia; L. pleural effusion; HFrEF; Pulm HTN Interval history: 81-year-old female with known history of diabetes mellitus, hypertension and arthritis brought to the emergency room via EMS for shortness of breath which has been ongoing for the past 3 days prior to come to the emergency room. Patient has been having some cough and shortness of breath. According to patient's , patient has also been having a fever of about 102.2 F. Upon arrival of EMS patient was found to be tachypneic with O2 saturation of 76% on room air which later improved to 88% on nonrebreather. Work-up in the emergency room , chest x-ray shows bilateral interstitial pulmonary edema with bilateral pleural effusions.. Bibasilar opacities which favors atelectasis. Lab reveals leukocytosis of 29. Hemoglobin of 6.1. Patient received blood transfusion and also checked for COVID-19. Patient Ivy virus test reported negative. Patient intubated and placed on mechanical ventilation. Patient presently sleeping. Not responding to verbal stimuli. Patient S/P tracheostomy. Patient presently on assist control, rate 15, Tidal volume 400, FIO2 35%, PEEP 6 and O2 saturation running 98%. I was told patient not tolerating spontaneous breathing trials. patient afebrile. No leukocytosis. Blood pressure 112/46, pulse 77, Respirations 15. Patients to days HGB 7.4. Chest xray 12/11/21 reported Diffuse bilateral pulmonary opacities most significant in the left lung and right upper lung .No pneumothorax. Patient is on Prevacid and Sucralfate. Objective Vital Signs - 12hr 12/13/21 12/13/21 12/13/21 06:15 06:30 06:45 Temperature Pulse Rate 84 84 84 Pulse Rate [ From Monitor] Respiratory 13 17 16 Rate Blood Pressure 117/46 118/41 118/41 O2 Sat by Pulse 97 97 96 Oximetry O2 Sat by Pulse Oximetry [ Assessment] 12/13/21 12/13/21 12/13/21 07:00 07:15 07:30 Temperature Pulse Rate 90 81 91 H Pulse Rate [ From Monitor] Respiratory 20 15 23 Rate Blood Pressure 113/32 113/32 128/52 O2 Sat by Pulse 96 97 97 Oximetry O2 Sat by Pulse Oximetry [ Assessment] 12/13/21 12/13/21 12/13/21 07:45 08:00 08:15 Temperature Pulse Rate 97 H 95 H 119 H Pulse Rate [ 90 From Monitor] Respiratory 13 16 18 Rate Blood Pressure 128/52 130/53 130/53 O2 Sat by Pulse 95 94 97 Oximetry O2 Sat by Pulse Oximetry [ Assessment] 12/13/21 12/13/21 12/13/21 08:31 08:35 08:45 Temperature Pulse Rate 107 H 93 H 106 H Pulse Rate [ From Monitor] Respiratory 20 19 Rate Blood Pressure 160/74 160/74 O2 Sat by Pulse 97 82 L 97 Oximetry O2 Sat by Pulse 93 Oximetry [ Assessment] 12/13/21 12/13/21 12/13/21 09:00 09:15 09:23 Temperature 98.5 F Pulse Rate 103 H 102 H Pulse Rate [ From Monitor] Respiratory 13 21 Rate Blood Pressure 137/77 137/77 O2 Sat by Pulse 95 94 Oximetry O2 Sat by Pulse Oximetry [ Assessment] 12/13/21 12/13/21 12/13/21 09:30 09:45 09:48 Temperature Pulse Rate 99 H 100 H Pulse Rate [ From Monitor] Respiratory 16 22 Rate Blood Pressure 140/72 140/72 O2 Sat by Pulse 96 94 93 Oximetry O2 Sat by Pulse Oximetry [ Assessment] 12/13/21 12/13/21 12/13/21 09:53 10:00 10:15 Temperature Pulse Rate 100 H 96 H 92 H Pulse Rate [ From Monitor] Respiratory 20 23 Rate Blood Pressure 140/72 157/54 157/54 O2 Sat by Pulse 93 94 Oximetry O2 Sat by Pulse Oximetry [ Assessment] 12/13/21 12/13/21 12/13/21 10:30 10:45 11:00 Temperature Pulse Rate 87 82 83 Pulse Rate [ From Monitor] Respiratory 20 23 22 Rate Blood Pressure 134/48 134/48 136/53 O2 Sat by Pulse 95 96 98 Oximetry O2 Sat by Pulse Oximetry [ Assessment] 12/13/21 12/13/21 12/13/21 11:15 11:30 11:45 Temperature Pulse Rate 82 90 86 Pulse Rate [ From Monitor] Respiratory 22 15 18 Rate Blood Pressure 136/53 147/76 147/76 O2 Sat by Pulse 98 92 98 Oximetry O2 Sat by Pulse Oximetry [ Assessment] 12/13/21 12/13/21 12/13/21 11:57 11:58 12:00 Temperature Pulse Rate 85 85 Pulse Rate [ 85 From Monitor] Respiratory 16 21 Rate Blood Pressure 132/48 O2 Sat by Pulse 99 99 Oximetry O2 Sat by Pulse Oximetry [ Assessment] 12/13/21 12/13/21 12/13/21 12:15 12:30 12:45 Temperature Pulse Rate 84 99 H 91 H Pulse Rate [ From Monitor] Respiratory 17 12 23 Rate Blood Pressure 132/48 128/49 128/49 O2 Sat by Pulse 100 88 99 Oximetry O2 Sat by Pulse Oximetry [ Assessment] 12/13/21 12/13/21 12/13/21 13:00 13:15 13:30 Temperature Pulse Rate 90 86 84 Pulse Rate [ From Monitor] Respiratory 15 17 20 Rate Blood Pressure 133/55 133/55 123/44 O2 Sat by Pulse 100 98 98 Oximetry O2 Sat by Pulse Oximetry [ Assessment] 12/13/21 12/13/21 12/13/21 13:45 14:00 14:15 Temperature Pulse Rate 83 84 85 Pulse Rate [ From Monitor] Respiratory 17 20 17 Rate Blood Pressure 123/44 108/44 108/44 O2 Sat by Pulse 98 99 97 Oximetry O2 Sat by Pulse Oximetry [ Assessment] 12/13/21 12/13/21 12/13/21 14:30 14:45 15:00 Temperature Pulse Rate 83 84 82 Pulse Rate [ From Monitor] Respiratory 16 22 18 Rate Blood Pressure 111/40 111/40 110/40 O2 Sat by Pulse 98 98 98 Oximetry O2 Sat by Pulse Oximetry [ Assessment] 12/13/21 12/13/21 12/13/21 15:15 15:30 15:45 Temperature Pulse Rate 82 80 79 Pulse Rate [ From Monitor] Respiratory 21 15 22 Rate Blood Pressure 110/40 112/43 112/43 O2 Sat by Pulse 98 98 97 Oximetry O2 Sat by Pulse Oximetry [ Assessment] 12/13/21 12/13/21 12/13/21 15:50 16:00 16:15 Temperature Pulse Rate 79 80 81 Pulse Rate [ 79 From Monitor] Respiratory 16 24 20 Rate Blood Pressure 114/46 114/46 O2 Sat by Pulse 98 98 98 Oximetry O2 Sat by Pulse 114 H Oximetry [ Assessment] 12/13/21 16:30 Temperature Pulse Rate 115 H Pulse Rate [ From Monitor] Respiratory 17 Rate Blood Pressure 118/46 O2 Sat by Pulse 98 Oximetry O2 Sat by Pulse Oximetry [ Assessment] Constitutional: no acute distress, asleep, other (trach to MVS, frail elderly woman with mildly increased respiratory effort at rest) Eyes: non-icteric ENT: oropharynx moist, other (+ Midline tracheostomy) Neck: supple, no lymphadenopathy, no JVD Effort: mildly labored Ascultation: Bilateral: diminished breath sounds, rhonchi, other (Right chest tube) Percussion: Bilateral: not dull Cardiovascular: regular rate and rhythm, other (S1,S2) Gastrointestinal: normoactive bowel sounds, soft, non-tender, non-distended (protuberant) Integumentary: normal Extremities: no cyanosis, pink and warm, pulses normal, edema (upper etremities) Neurologic: normal mental status, non-focal exam (grossly), pupils equal and round Psychiatric: other (Sleeping at this time.) CBC and BMP: 12/14/21 04:20 12/14/21 04:20 ABG, PT/INR, D-dimer: ABG ABG pH 7.449 pH Units (7.350-7.450) 11/21/21 16:00 ABG pCO2 32.1 mm Hg 11/21/21 16:00 ABG pO2 114.2 mm Hg (80.0-90.0) H 11/21/21 16:00 ABG O2 Saturation 98.3 % (95.0-99.0) 11/21/21 16:00 PT/INR, D-dimer PT 16.9 Sec. (12.2-14.9) H 11/26/21 05:00 INR 1.24 (0.87-1.13) H 11/26/21 05:00 D-Dimer 2655.00 ng/mlDDU (0-234) H 11/11/21 04:28 Abnormal lab findings: Abnormal Labs 11/03/21 11/03/21 11/03/21 22:32 22:32 22:32 WBC 29.3 H RBC 2.93 L Hgb 6.1 L Hct 21.9 L MCV 75 L MCH 21 L MCHC 28 L RDW 19.7 H Plt Count Seg Neuts % (Manual) 97.0 H Lymphocytes % (Manual) 3.0 L Seg Neutrophils # Man 28.4 H Lymphocytes # (Manual) 0.9 L Monocytes # (Manual) PT 18.6 H INR 1.40 H D-Dimer ABG pH ABG pO2 ABG HCO3 ABG O2 Saturation ABG Base Excess ABG Hemoglobin Oxyhemoglobin Sodium Potassium Chloride Carbon Dioxide 20 L BUN 33 H Creatinine Glucose 119 H POC Glucose Lactic Acid Calcium 8.3 L Phosphorus Magnesium AST ALT Alkaline Phosphatase Lactate Dehydrogenase Troponin T 0.035 H C-Reactive Protein NT-Pro-B Natriuret Pep Total Protein Albumin LDL Cholesterol Direct 34 L Vitamin B12 Crossmatch 11/03/21 11/03/21 11/03/21 22:32 22:32 23:57 WBC RBC Hgb Hct MCV MCH MCHC RDW Plt Count Seg Neuts % (Manual) Lymphocytes % (Manual) Seg Neutrophils # Man Lymphocytes # (Manual) Monocytes # (Manual) PT INR D-Dimer ABG pH ABG pO2 ABG HCO3 ABG O2 Saturation ABG Base Excess ABG Hemoglobin Oxyhemoglobin Sodium Potassium Chloride Carbon Dioxide BUN Creatinine Glucose POC Glucose Lactic Acid 3.70 H* Calcium Phosphorus Magnesium AST ALT Alkaline Phosphatase 139 H Lactate Dehydrogenase Troponin T C-Reactive Protein NT-Pro-B Natriuret Pep 7895 H Total Protein Albumin 3.5 L LDL Cholesterol Direct Vitamin B12 Crossmatch See Detail 11/04/21 11/04/21 11/05/21 00:59 13:58 00:51 WBC 27.9 H RBC 3.28 L Hgb 7.3 L Hct 25.5 L MCV 78 L MCH 22 L MCHC 29 L RDW 19.1 H Plt Count Seg Neuts % (Manual) 96.0 H Lymphocytes % (Manual) 2.0 L Seg Neutrophils # Man 26.8 H Lymphocytes # (Manual) 0.6 L Monocytes # (Manual) PT INR D-Dimer ABG pH ABG pO2 ABG HCO3 ABG O2 Saturation ABG Base Excess ABG Hemoglobin Oxyhemoglobin Sodium Potassium Chloride Carbon Dioxide BUN Creatinine Glucose POC Glucose Lactic Acid Calcium Phosphorus Magnesium AST ALT Alkaline Phosphatase Lactate Dehydrogenase Troponin T 0.051 H D 0.032 H D C-Reactive Protein NT-Pro-B Natriuret Pep Total Protein Albumin LDL Cholesterol Direct Vitamin B12 Crossmatch 11/05/21 11/05/21 11/05/21 06:11 06:11 06:11 WBC 31.8 H RBC 3.57 L Hgb 8.0 L Hct 27.7 L MCV 78 L MCH 22 L MCHC 29 L RDW 19.2 H Plt Count Seg Neuts % (Manual) 91.0 H Lymphocytes % (Manual) 4.5 L Seg Neutrophils # Man 28.9 H Lymphocytes # (Manual) Monocytes # (Manual) 1.1 H PT INR D-Dimer 1494.53 H ABG pH ABG pO2 ABG HCO3 ABG O2 Saturation ABG Base Excess ABG Hemoglobin Oxyhemoglobin Sodium Potassium Chloride Carbon Dioxide 19 L BUN 42 H Creatinine Glucose 115 H POC Glucose Lactic Acid Calcium Phosphorus Magnesium AST 43 H ALT Alkaline Phosphatase Lactate Dehydrogenase 187 H Troponin T C-Reactive Protein 22.20 H NT-Pro-B Natriuret Pep Total Protein 6.0 L Albumin 3.2 L LDL Cholesterol Direct Vitamin B12 Crossmatch 11/05/21 11/05/21 11/06/21 06:11 12:15 00:30 WBC RBC Hgb Hct MCV MCH MCHC RDW Plt Count Seg Neuts % (Manual) Lymphocytes % (Manual) Seg Neutrophils # Man Lymphocytes # (Manual) Monocytes # (Manual) PT INR D-Dimer ABG pH ABG pO2 ABG HCO3 ABG O2 Saturation ABG Base Excess ABG Hemoglobin Oxyhemoglobin Sodium Potassium Chloride Carbon Dioxide BUN Creatinine Glucose POC Glucose 113 H 69 L Lactic Acid Calcium Phosphorus Magnesium AST ALT Alkaline Phosphatase Lactate Dehydrogenase Troponin T 0.033 H C-Reactive Protein NT-Pro-B Natriuret Pep Total Protein Albumin LDL Cholesterol Direct Vitamin B12 Crossmatch 11/06/21 11/06/21 11/06/21 05:50 15:50 15:50 WBC 25.5 H RBC 3.62 L Hgb 8.0 L Hct 27.5 L MCV 76 L MCH 22 L MCHC 29 L RDW 19.6 H Plt Count Seg Neuts % (Manual) 92.0 H Lymphocytes % (Manual) 5.0 L Seg Neutrophils # Man 23.5 H Lymphocytes # (Manual) Monocytes # (Manual) PT INR D-Dimer ABG pH 7.305 L ABG pO2 ABG HCO3 15.8 L ABG O2 Saturation ABG Base Excess -9.6 L ABG Hemoglobin 8.6 L Oxyhemoglobin 94.6 L Sodium Potassium Chloride 113.9 H Carbon Dioxide 17 L BUN 56 H Creatinine Glucose 114 H POC Glucose Lactic Acid Calcium 7.9 L Phosphorus Magnesium AST 1410 H ALT 934 H Alkaline Phosphatase 142 H Lactate Dehydrogenase Troponin T C-Reactive Protein NT-Pro-B Natriuret Pep Total Protein 5.0 L Albumin 2.6 L LDL Cholesterol Direct Vitamin B12 Crossmatch 11/07/21 11/07/21 11/07/21 03:30 04:50 08:07 WBC RBC Hgb Hct MCV MCH MCHC RDW Plt Count Seg Neuts % (Manual) Lymphocytes % (Manual) Seg Neutrophils # Man Lymphocytes # (Manual) Monocytes # (Manual) PT INR D-Dimer ABG pH ABG pO2 296.9 H ABG HCO3 18.1 L ABG O2 Saturation 99.5 H ABG Base Excess -5.9 L ABG Hemoglobin 7.6 L Oxyhemoglobin Sodium Potassium Chloride Carbon Dioxide BUN Creatinine Glucose POC Glucose 106 H 108 H Lactic Acid Calcium Phosphorus Magnesium AST ALT Alkaline Phosphatase Lactate Dehydrogenase Troponin T C-Reactive Protein NT-Pro-B Natriuret Pep Total Protein Albumin LDL Cholesterol Direct Vitamin B12 Crossmatch 11/08/21 11/08/21 11/08/21 03:10 18:05 23:43 WBC RBC Hgb Hct MCV MCH MCHC RDW Plt Count Seg Neuts % (Manual) Lymphocytes % (Manual) Seg Neutrophils # Man Lymphocytes # (Manual) Monocytes # (Manual) PT INR D-Dimer ABG pH ABG pO2 127.4 H ABG HCO3 ABG O2 Saturation ABG Base Excess -3.4 L ABG Hemoglobin 7.4 L Oxyhemoglobin Sodium Potassium Chloride Carbon Dioxide BUN Creatinine Glucose POC Glucose 113 H 141 H Lactic Acid Calcium Phosphorus Magnesium AST ALT Alkaline Phosphatase Lactate Dehydrogenase Troponin T C-Reactive Protein NT-Pro-B Natriuret Pep Total Protein Albumin LDL Cholesterol Direct Vitamin B12 Crossmatch 11/08/21 11/08/21 11/09/21 Unknown Unknown 02:00 WBC 14.5 H RBC 3.35 L Hgb 7.5 L 8.1 L Hct 25.4 L 27.6 L MCV 76 L 76 L MCH 23 L 22 L MCHC RDW 19.9 H 19.9 H Plt Count Seg Neuts % (Manual) Lymphocytes % (Manual) Seg Neutrophils # Man Lymphocytes # (Manual) Monocytes # (Manual) PT INR D-Dimer ABG pH ABG pO2 ABG HCO3 ABG O2 Saturation ABG Base Excess ABG Hemoglobin Oxyhemoglobin Sodium 154 H D Potassium 3.3 L Chloride 120.7 H Carbon Dioxide 20 L BUN 38 H Creatinine Glucose POC Glucose Lactic Acid Calcium 8.3 L Phosphorus Magnesium AST ALT Alkaline Phosphatase Lactate Dehydrogenase Troponin T C-Reactive Protein NT-Pro-B Natriuret Pep Total Protein Albumin LDL Cholesterol Direct Vitamin B12 Crossmatch 11/09/21 11/09/21 11/09/21 02:00 02:31 05:12 WBC RBC Hgb Hct MCV MCH MCHC RDW Plt Count Seg Neuts % (Manual) Lymphocytes % (Manual) Seg Neutrophils # Man Lymphocytes # (Manual) Monocytes # (Manual) PT INR D-Dimer ABG pH 7.479 H ABG pO2 121.3 H ABG HCO3 ABG O2 Saturation ABG Base Excess ABG Hemoglobin 7.3 L Oxyhemoglobin Sodium Potassium Chloride 112.5 H Carbon Dioxide BUN 33 H Creatinine Glucose 161 H POC Glucose 135 H Lactic Acid Calcium Phosphorus Magnesium AST 251 H ALT 481 H Alkaline Phosphatase Lactate Dehydrogenase Troponin T C-Reactive Protein NT-Pro-B Natriuret Pep Total Protein 5.0 L Albumin 2.8 L LDL Cholesterol Direct Vitamin B12 Crossmatch 11/09/21 11/09/21 11/09/21 11:33 16:32 23:28 WBC RBC Hgb Hct MCV MCH MCHC RDW Plt Count Seg Neuts % (Manual) Lymphocytes % (Manual) Seg Neutrophils # Man Lymphocytes # (Manual) Monocytes # (Manual) PT INR D-Dimer ABG pH ABG pO2 ABG HCO3 ABG O2 Saturation ABG Base Excess ABG Hemoglobin Oxyhemoglobin Sodium Potassium Chloride Carbon Dioxide BUN Creatinine Glucose POC Glucose 132 H 133 H 143 H Lactic Acid Calcium Phosphorus Magnesium AST ALT Alkaline Phosphatase Lactate Dehydrogenase Troponin T C-Reactive Protein NT-Pro-B Natriuret Pep Total Protein Albumin LDL Cholesterol Direct Vitamin B12 Crossmatch 11/10/21 11/10/21 11/10/21 04:00 04:00 05:35 WBC 16.0 H RBC 3.61 L Hgb 8.0 L Hct 27.1 L MCV 75 L MCH 22 L MCHC RDW 20.4 H Plt Count Seg Neuts % (Manual) Lymphocytes % (Manual) Seg Neutrophils # Man Lymphocytes # (Manual) Monocytes # (Manual) PT INR D-Dimer ABG pH ABG pO2 ABG HCO3 ABG O2 Saturation ABG Base Excess ABG Hemoglobin Oxyhemoglobin Sodium 149 H Potassium Chloride 114.1 H Carbon Dioxide BUN 31 H Creatinine Glucose 148 H POC Glucose 132 H Lactic Acid Calcium 8.2 L Phosphorus Magnesium AST ALT Alkaline Phosphatase Lactate Dehydrogenase Troponin T C-Reactive Protein NT-Pro-B Natriuret Pep Total Protein Albumin LDL Cholesterol Direct Vitamin B12 Crossmatch 11/10/21 11/10/21 11/10/21 11:31 14:08 15:35 WBC RBC Hgb Hct MCV MCH MCHC RDW Plt Count Seg Neuts % (Manual) Lymphocytes % (Manual) Seg Neutrophils # Man Lymphocytes # (Manual) Monocytes # (Manual) PT INR D-Dimer ABG pH ABG pO2 126.6 H ABG HCO3 ABG O2 Saturation ABG Base Excess ABG Hemoglobin 7.4 L Oxyhemoglobin Sodium Potassium Chloride Carbon Dioxide BUN Creatinine Glucose POC Glucose 147 H Lactic Acid Calcium Phosphorus Magnesium AST ALT Alkaline Phosphatase Lactate Dehydrogenase Troponin T C-Reactive Protein NT-Pro-B Natriuret Pep Total Protein Albumin LDL Cholesterol Direct Vitamin B12 1823 H Crossmatch 11/10/21 11/11/21 11/11/21 17:53 00:55 04:28 WBC RBC Hgb Hct MCV MCH MCHC RDW Plt Count Seg Neuts % (Manual) Lymphocytes % (Manual) Seg Neutrophils # Man Lymphocytes # (Manual) Monocytes # (Manual) PT INR D-Dimer ABG pH ABG pO2 ABG HCO3 ABG O2 Saturation ABG Base Excess ABG Hemoglobin Oxyhemoglobin Sodium 149 H Potassium Chloride 112.2 H Carbon Dioxide BUN 34 H Creatinine Glucose 148 H POC Glucose 140 H 145 H Lactic Acid Calcium 7.9 L Phosphorus Magnesium AST 53 H ALT 203 H Alkaline Phosphatase Lactate Dehydrogenase Troponin T C-Reactive Protein NT-Pro-B Natriuret Pep Total Protein 4.9 L Albumin 2.6 L LDL Cholesterol Direct Vitamin B12 Crossmatch 11/11/21 11/11/21 11/11/21 04:28 04:28 05:28 WBC 20.9 H RBC 3.47 L Hgb 7.5 L Hct 26.0 L MCV 75 L MCH 22 L MCHC 29 L RDW 21.6 H Plt Count 132 L Seg Neuts % (Manual) Lymphocytes % (Manual) Seg Neutrophils # Man Lymphocytes # (Manual) Monocytes # (Manual) PT INR D-Dimer 2655.00 H ABG pH ABG pO2 ABG HCO3 ABG O2 Saturation ABG Base Excess ABG Hemoglobin Oxyhemoglobin Sodium Potassium Chloride Carbon Dioxide BUN Creatinine Glucose POC Glucose 154 H Lactic Acid Calcium Phosphorus Magnesium AST ALT Alkaline Phosphatase Lactate Dehydrogenase Troponin T C-Reactive Protein NT-Pro-B Natriuret Pep Total Protein Albumin LDL Cholesterol Direct Vitamin B12 Crossmatch 11/11/21 11/11/21 11/12/21 12:38 18:13 00:14 WBC RBC Hgb Hct MCV MCH MCHC RDW Plt Count Seg Neuts % (Manual) Lymphocytes % (Manual) Seg Neutrophils # Man Lymphocytes # (Manual) Monocytes # (Manual) PT INR D-Dimer ABG pH ABG pO2 ABG HCO3 ABG O2 Saturation ABG Base Excess ABG Hemoglobin Oxyhemoglobin Sodium Potassium Chloride Carbon Dioxide BUN Creatinine Glucose POC Glucose 137 H 108 H 137 H Lactic Acid Calcium Phosphorus Magnesium AST ALT Alkaline Phosphatase Lactate Dehydrogenase Troponin T C-Reactive Protein NT-Pro-B Natriuret Pep Total Protein Albumin LDL Cholesterol Direct Vitamin B12 Crossmatch 11/12/21 11/12/21 11/12/21 05:40 06:24 11:12 WBC RBC Hgb Hct MCV MCH MCHC RDW Plt Count Seg Neuts % (Manual) Lymphocytes % (Manual) Seg Neutrophils # Man Lymphocytes # (Manual) Monocytes # (Manual) PT INR D-Dimer ABG pH 7.586 H ABG pO2 150.6 H ABG HCO3 27.2 H ABG O2 Saturation 99.1 H ABG Base Excess 5.2 H ABG Hemoglobin 7.5 L Oxyhemoglobin Sodium Potassium Chloride Carbon Dioxide BUN Creatinine Glucose POC Glucose 132 H 140 H Lactic Acid Calcium Phosphorus Magnesium AST ALT Alkaline Phosphatase Lactate Dehydrogenase Troponin T C-Reactive Protein NT-Pro-B Natriuret Pep Total Protein Albumin LDL Cholesterol Direct Vitamin B12 Crossmatch 11/12/21 11/12/21 11/12/21 14:50 14:50 17:13 WBC 19.8 H RBC 3.27 L Hgb 7.1 L Hct 24.5 L MCV 75 L MCH 22 L MCHC 29 L RDW 22.3 H Plt Count Seg Neuts % (Manual) Lymphocytes % (Manual) Seg Neutrophils # Man Lymphocytes # (Manual) Monocytes # (Manual) PT INR D-Dimer ABG pH ABG pO2 ABG HCO3 ABG O2 Saturation ABG Base Excess ABG Hemoglobin Oxyhemoglobin Sodium 150 H Potassium 3.3 L Chloride 112.0 H Carbon Dioxide BUN 40 H Creatinine Glucose 151 H POC Glucose 121 H Lactic Acid Calcium 7.4 L Phosphorus 1.70 L Magnesium 1.40 L AST ALT Alkaline Phosphatase Lactate Dehydrogenase Troponin T C-Reactive Protein NT-Pro-B Natriuret Pep Total Protein Albumin LDL Cholesterol Direct Vitamin B12 Crossmatch 11/12/21 11/13/21 11/13/21 23:19 05:34 06:30 WBC RBC Hgb Hct MCV MCH MCHC RDW Plt Count Seg Neuts % (Manual) Lymphocytes % (Manual) Seg Neutrophils # Man Lymphocytes # (Manual) Monocytes # (Manual) PT INR D-Dimer ABG pH ABG pO2 ABG HCO3 ABG O2 Saturation ABG Base Excess ABG Hemoglobin Oxyhemoglobin Sodium 149 H Potassium Chloride 60.0 L Carbon Dioxide BUN 40 H Creatinine Glucose 146 H POC Glucose 113 H 132 H Lactic Acid Calcium 7.3 L Phosphorus Magnesium 2.40 H AST ALT 72 H Alkaline Phosphatase Lactate Dehydrogenase Troponin T C-Reactive Protein NT-Pro-B Natriuret Pep Total Protein 5.2 L Albumin 2.2 L LDL Cholesterol Direct Vitamin B12 Crossmatch 11/13/21 11/13/21 11/13/21 06:30 08:30 11:19 WBC 21.2 H RBC 3.12 L Hgb 6.8 L Hct 23.2 L MCV 74 L MCH 22 L MCHC 29 L RDW 22.2 H Plt Count 135 L Seg Neuts % (Manual) Lymphocytes % (Manual) Seg Neutrophils # Man Lymphocytes # (Manual) Monocytes # (Manual) PT INR D-Dimer ABG pH ABG pO2 ABG HCO3 ABG O2 Saturation ABG Base Excess ABG Hemoglobin Oxyhemoglobin Sodium Potassium Chloride Carbon Dioxide BUN Creatinine Glucose POC Glucose 136 H Lactic Acid Calcium Phosphorus Magnesium AST ALT Alkaline Phosphatase Lactate Dehydrogenase Troponin T C-Reactive Protein NT-Pro-B Natriuret Pep Total Protein Albumin LDL Cholesterol Direct Vitamin B12 Crossmatch See Detail 11/13/21 11/14/21 11/14/21 18:21 00:01 04:46 WBC 20.0 H RBC 3.41 L Hgb 7.9 L Hct 26.8 L MCV MCH 23 L MCHC 29 L RDW 24.0 H Plt Count Seg Neuts % (Manual) Lymphocytes % (Manual) Seg Neutrophils # Man Lymphocytes # (Manual) Monocytes # (Manual) PT INR D-Dimer ABG pH ABG pO2 ABG HCO3 ABG O2 Saturation ABG Base Excess ABG Hemoglobin Oxyhemoglobin Sodium Potassium Chloride Carbon Dioxide BUN Creatinine Glucose POC Glucose 149 H 141 H Lactic Acid Calcium Phosphorus Magnesium AST ALT Alkaline Phosphatase Lactate Dehydrogenase Troponin T C-Reactive Protein NT-Pro-B Natriuret Pep Total Protein Albumin LDL Cholesterol Direct Vitamin B12 Crossmatch 11/14/21 11/14/21 11/14/21 04:46 05:10 11:10 WBC RBC Hgb Hct MCV MCH MCHC RDW Plt Count Seg Neuts % (Manual) Lymphocytes % (Manual) Seg Neutrophils # Man Lymphocytes # (Manual) Monocytes # (Manual) PT INR D-Dimer ABG pH ABG pO2 ABG HCO3 ABG O2 Saturation ABG Base Excess ABG Hemoglobin Oxyhemoglobin Sodium 148 H Potassium Chloride 113.1 H Carbon Dioxide BUN 43 H Creatinine Glucose 140 H POC Glucose 132 H 133 H Lactic Acid Calcium 7.5 L Phosphorus Magnesium AST ALT Alkaline Phosphatase Lactate Dehydrogenase Troponin T C-Reactive Protein NT-Pro-B Natriuret Pep Total Protein Albumin LDL Cholesterol Direct Vitamin B12 Crossmatch 11/14/21 11/14/21 11/14/21 16:14 17:48 23:23 WBC RBC Hgb Hct MCV MCH MCHC RDW Plt Count Seg Neuts % (Manual) Lymphocytes % (Manual) Seg Neutrophils # Man Lymphocytes # (Manual) Monocytes # (Manual) PT INR D-Dimer ABG pH ABG pO2 ABG HCO3 28.0 H ABG O2 Saturation ABG Base Excess 3.1 H ABG Hemoglobin 5.8 L Oxyhemoglobin 94.8 L Sodium Potassium Chloride Carbon Dioxide BUN Creatinine Glucose POC Glucose 130 H 136 H Lactic Acid Calcium Phosphorus Magnesium AST ALT Alkaline Phosphatase Lactate Dehydrogenase Troponin T C-Reactive Protein NT-Pro-B Natriuret Pep Total Protein Albumin LDL Cholesterol Direct Vitamin B12 Crossmatch 11/15/21 11/15/21 11/15/21 05:20 05:50 05:50 WBC 19.9 H RBC 3.50 L Hgb 8.2 L Hct 27.9 L MCV MCH 23 L MCHC 29 L RDW 24.9 H Plt Count Seg Neuts % (Manual) Lymphocytes % (Manual) Seg Neutrophils # Man Lymphocytes # (Manual) Monocytes # (Manual) PT INR D-Dimer ABG pH ABG pO2 ABG HCO3 ABG O2 Saturation ABG Base Excess ABG Hemoglobin Oxyhemoglobin Sodium 149 H Potassium Chloride 112.0 H Carbon Dioxide BUN 48 H Creatinine Glucose 152 H POC Glucose 137 H Lactic Acid Calcium 7.9 L Phosphorus Magnesium AST ALT Alkaline Phosphatase Lactate Dehydrogenase Troponin T C-Reactive Protein NT-Pro-B Natriuret Pep Total Protein Albumin LDL Cholesterol Direct Vitamin B12 Crossmatch 11/15/21 11/15/21 11/15/21 12:12 17:07 23:24 WBC RBC Hgb Hct MCV MCH MCHC RDW Plt Count Seg Neuts % (Manual) Lymphocytes % (Manual) Seg Neutrophils # Man Lymphocytes # (Manual) Monocytes # (Manual) PT INR D-Dimer ABG pH ABG pO2 ABG HCO3 ABG O2 Saturation ABG Base Excess ABG Hemoglobin Oxyhemoglobin Sodium Potassium Chloride Carbon Dioxide BUN Creatinine Glucose POC Glucose 114 H 135 H 123 H Lactic Acid Calcium Phosphorus Magnesium AST ALT Alkaline Phosphatase Lactate Dehydrogenase Troponin T C-Reactive Protein NT-Pro-B Natriuret Pep Total Protein Albumin LDL Cholesterol Direct Vitamin B12 Crossmatch 11/16/21 11/16/21 11/16/21 05:21 10:00 10:00 WBC 21.7 H RBC 2.57 L Hgb 6.0 L Hct 20.2 L D MCV MCH 24 L MCHC RDW 26.3 H Plt Count Seg Neuts % (Manual) Lymphocytes % (Manual) Seg Neutrophils # Man Lymphocytes # (Manual) Monocytes # (Manual) PT INR D-Dimer ABG pH ABG pO2 ABG HCO3 ABG O2 Saturation ABG Base Excess ABG Hemoglobin Oxyhemoglobin Sodium 153 H Potassium Chloride 114.9 H Carbon Dioxide BUN 74 H Creatinine Glucose 155 H POC Glucose 127 H Lactic Acid Calcium 8.1 L Phosphorus Magnesium AST ALT Alkaline Phosphatase Lactate Dehydrogenase Troponin T C-Reactive Protein NT-Pro-B Natriuret Pep Total Protein Albumin LDL Cholesterol Direct Vitamin B12 Crossmatch 11/16/21 11/16/21 11/16/21 11:34 14:00 15:25 WBC 17.2 H RBC 2.08 L Hgb 4.7 L* Hct 16.2 L* MCV 78 L MCH 23 L MCHC 29 L RDW 26.0 H Plt Count Seg Neuts % (Manual) 87.0 H Lymphocytes % (Manual) 8.0 L Seg Neutrophils # Man 15.0 H Lymphocytes # (Manual) Monocytes # (Manual) 0.9 H PT INR D-Dimer ABG pH ABG pO2 ABG HCO3 ABG O2 Saturation ABG Base Excess ABG Hemoglobin Oxyhemoglobin Sodium Potassium Chloride Carbon Dioxide BUN Creatinine Glucose POC Glucose 131 H Lactic Acid Calcium Phosphorus Magnesium AST ALT Alkaline Phosphatase Lactate Dehydrogenase Troponin T C-Reactive Protein NT-Pro-B Natriuret Pep Total Protein Albumin LDL Cholesterol Direct Vitamin B12 Crossmatch See Detail 11/16/21 11/16/21 11/16/21 15:25 17:21 22:43 WBC RBC Hgb 8.6 L D Hct 27.7 L D MCV MCH MCHC RDW Plt Count Seg Neuts % (Manual) Lymphocytes % (Manual) Seg Neutrophils # Man Lymphocytes # (Manual) Monocytes # (Manual) PT INR D-Dimer ABG pH ABG pO2 ABG HCO3 ABG O2 Saturation ABG Base Excess ABG Hemoglobin Oxyhemoglobin Sodium 148 H Potassium Chloride 113.2 H Carbon Dioxide BUN 84 H Creatinine Glucose 164 H POC Glucose 124 H Lactic Acid Calcium 7.6 L Phosphorus Magnesium AST ALT Alkaline Phosphatase Lactate Dehydrogenase Troponin T C-Reactive Protein NT-Pro-B Natriuret Pep Total Protein Albumin LDL Cholesterol Direct Vitamin B12 Crossmatch 11/16/21 11/17/21 11/17/21 23:07 05:33 05:56 WBC 25.1 H RBC 3.47 L Hgb 8.7 L Hct 28.5 L MCV MCH 25 L MCHC RDW 22.3 H Plt Count Seg Neuts % (Manual) Lymphocytes % (Manual) Seg Neutrophils # Man Lymphocytes # (Manual) Monocytes # (Manual) PT INR D-Dimer ABG pH ABG pO2 ABG HCO3 ABG O2 Saturation ABG Base Excess ABG Hemoglobin Oxyhemoglobin Sodium Potassium Chloride Carbon Dioxide BUN Creatinine Glucose POC Glucose 128 H 133 H Lactic Acid Calcium Phosphorus Magnesium AST ALT Alkaline Phosphatase Lactate Dehydrogenase Troponin T C-Reactive Protein NT-Pro-B Natriuret Pep Total Protein Albumin LDL Cholesterol Direct Vitamin B12 Crossmatch 11/17/21 11/17/21 11/17/21 05:56 11:00 11:55 WBC RBC Hgb 8.3 L Hct 26.9 L MCV MCH MCHC RDW Plt Count Seg Neuts % (Manual) Lymphocytes % (Manual) Seg Neutrophils # Man Lymphocytes # (Manual) Monocytes # (Manual) PT INR D-Dimer ABG pH ABG pO2 ABG HCO3 ABG O2 Saturation ABG Base Excess ABG Hemoglobin Oxyhemoglobin Sodium 151 H Potassium Chloride 113.6 H Carbon Dioxide BUN 85 H Creatinine Glucose 132 H POC Glucose 121 H Lactic Acid Calcium 7.8 L Phosphorus Magnesium AST ALT Alkaline Phosphatase Lactate Dehydrogenase Troponin T C-Reactive Protein NT-Pro-B Natriuret Pep Total Protein 5.1 L Albumin 2.2 L LDL Cholesterol Direct Vitamin B12 Crossmatch 11/17/21 11/17/21 11/18/21 18:04 18:55 00:26 WBC RBC Hgb 7.5 L 7.1 L Hct 24.8 L 23.6 L MCV MCH MCHC RDW Plt Count Seg Neuts % (Manual) Lymphocytes % (Manual) Seg Neutrophils # Man Lymphocytes # (Manual) Monocytes # (Manual) PT INR D-Dimer ABG pH ABG pO2 ABG HCO3 ABG O2 Saturation ABG Base Excess ABG Hemoglobin Oxyhemoglobin Sodium Potassium Chloride Carbon Dioxide BUN Creatinine Glucose POC Glucose 144 H Lactic Acid Calcium Phosphorus Magnesium AST ALT Alkaline Phosphatase Lactate Dehydrogenase Troponin T C-Reactive Protein NT-Pro-B Natriuret Pep Total Protein Albumin LDL Cholesterol Direct Vitamin B12 Crossmatch 11/18/21 11/18/21 11/18/21 00:43 05:10 05:10 WBC 12.5 H RBC 2.39 L Hgb 6.1 L Hct 20.2 L MCV MCH 25 L MCHC RDW 23.2 H Plt Count Seg Neuts % (Manual) Lymphocytes % (Manual) Seg Neutrophils # Man Lymphocytes # (Manual) Monocytes # (Manual) PT INR D-Dimer ABG pH ABG pO2 ABG HCO3 ABG O2 Saturation ABG Base Excess ABG Hemoglobin Oxyhemoglobin Sodium 131 L D Potassium 2.9 L* D Chloride 97.8 L Carbon Dioxide BUN 58 H Creatinine Glucose 665 H* POC Glucose 139 H Lactic Acid Calcium 7.0 L Phosphorus 2.20 L D Magnesium 1.50 L AST ALT Alkaline Phosphatase Lactate Dehydrogenase Troponin T C-Reactive Protein NT-Pro-B Natriuret Pep Total Protein Albumin LDL Cholesterol Direct Vitamin B12 Crossmatch 11/18/21 11/18/21 11/18/21 05:23 07:10 10:45 WBC RBC Hgb Hct MCV MCH MCHC RDW Plt Count Seg Neuts % (Manual) Lymphocytes % (Manual) Seg Neutrophils # Man Lymphocytes # (Manual) Monocytes # (Manual) PT INR D-Dimer ABG pH ABG pO2 ABG HCO3 ABG O2 Saturation ABG Base Excess ABG Hemoglobin Oxyhemoglobin Sodium 148 H D Potassium 3.1 L Chloride 111.9 H Carbon Dioxide BUN 63 H Creatinine Glucose 141 H POC Glucose 124 H Lactic Acid Calcium 8.1 L D Phosphorus Magnesium AST ALT Alkaline Phosphatase Lactate Dehydrogenase Troponin T C-Reactive Protein NT-Pro-B Natriuret Pep Total Protein Albumin LDL Cholesterol Direct Vitamin B12 Crossmatch See Detail 11/18/21 11/19/21 11/19/21 11:57 00:19 04:55 WBC RBC 3.35 L Hgb 9.0 L 8.9 L Hct 28.3 L D 28.1 L MCV MCH 27 L MCHC RDW 20.3 H Plt Count Seg Neuts % (Manual) Lymphocytes % (Manual) Seg Neutrophils # Man Lymphocytes # (Manual) Monocytes # (Manual) PT INR D-Dimer ABG pH ABG pO2 ABG HCO3 ABG O2 Saturation ABG Base Excess ABG Hemoglobin Oxyhemoglobin Sodium Potassium Chloride Carbon Dioxide BUN Creatinine Glucose POC Glucose 119 H Lactic Acid Calcium Phosphorus Magnesium AST ALT Alkaline Phosphatase Lactate Dehydrogenase Troponin T C-Reactive Protein NT-Pro-B Natriuret Pep Total Protein Albumin LDL Cholesterol Direct Vitamin B12 Crossmatch 11/19/21 11/19/21 11/20/21 04:55 05:42 00:55 WBC RBC Hgb 9.0 L Hct 28.6 L MCV MCH MCHC RDW Plt Count Seg Neuts % (Manual) Lymphocytes % (Manual) Seg Neutrophils # Man Lymphocytes # (Manual) Monocytes # (Manual) PT INR D-Dimer ABG pH ABG pO2 ABG HCO3 ABG O2 Saturation ABG Base Excess ABG Hemoglobin Oxyhemoglobin Sodium Potassium 3.5 L Chloride 108.6 H Carbon Dioxide BUN 47 H Creatinine Glucose 207 H POC Glucose 63 L Lactic Acid Calcium 7.1 L Phosphorus Magnesium AST ALT Alkaline Phosphatase Lactate Dehydrogenase Troponin T C-Reactive Protein NT-Pro-B Natriuret Pep Total Protein Albumin LDL Cholesterol Direct Vitamin B12 Crossmatch 11/20/21 11/20/21 11/20/21 05:40 05:40 Unknown WBC RBC 3.40 L Hgb 9.1 L Hct 28.8 L MCV MCH 27 L MCHC RDW 20.7 H Plt Count Seg Neuts % (Manual) Lymphocytes % (Manual) Seg Neutrophils # Man Lymphocytes # (Manual) Monocytes # (Manual) PT INR D-Dimer ABG pH ABG pO2 ABG HCO3 ABG O2 Saturation ABG Base Excess -2.7 L ABG Hemoglobin 9.5 L Oxyhemoglobin 94.3 L Sodium Potassium 3.5 L Chloride 108.9 H Carbon Dioxide BUN 37 H Creatinine Glucose 117 H POC Glucose Lactic Acid Calcium 7.5 L Phosphorus Magnesium AST ALT Alkaline Phosphatase Lactate Dehydrogenase Troponin T C-Reactive Protein NT-Pro-B Natriuret Pep Total Protein Albumin LDL Cholesterol Direct Vitamin B12 Crossmatch 11/21/21 11/21/21 11/21/21 04:30 04:30 16:00 WBC RBC 3.25 L Hgb 8.6 L Hct 28.1 L MCV MCH 26 L MCHC RDW 20.7 H Plt Count Seg Neuts % (Manual) Lymphocytes % (Manual) Seg Neutrophils # Man Lymphocytes # (Manual) Monocytes # (Manual) PT INR D-Dimer ABG pH ABG pO2 114.2 H ABG HCO3 ABG O2 Saturation ABG Base Excess ABG Hemoglobin 9.1 L Oxyhemoglobin Sodium 134 L Potassium Chloride Carbon Dioxide 20 L BUN 34 H Creatinine Glucose POC Glucose Lactic Acid Calcium 7.1 L Phosphorus Magnesium AST ALT Alkaline Phosphatase Lactate Dehydrogenase Troponin T C-Reactive Protein NT-Pro-B Natriuret Pep Total Protein Albumin LDL Cholesterol Direct Vitamin B12 Crossmatch 11/22/21 11/22/21 11/22/21 07:07 07:07 23:54 WBC RBC 3.30 L Hgb 9.0 L Hct 28.5 L MCV MCH 27 L MCHC RDW 21.0 H Plt Count Seg Neuts % (Manual) Lymphocytes % (Manual) Seg Neutrophils # Man Lymphocytes # (Manual) Monocytes # (Manual) PT INR D-Dimer ABG pH ABG pO2 ABG HCO3 ABG O2 Saturation ABG Base Excess ABG Hemoglobin Oxyhemoglobin Sodium Potassium Chloride Carbon Dioxide BUN 32 H Creatinine Glucose 106 H POC Glucose 110 H Lactic Acid Calcium 7.5 L Phosphorus Magnesium AST ALT Alkaline Phosphatase Lactate Dehydrogenase Troponin T C-Reactive Protein NT-Pro-B Natriuret Pep Total Protein Albumin LDL Cholesterol Direct Vitamin B12 Crossmatch 11/23/21 11/23/21 11/23/21 04:38 04:38 06:01 WBC RBC 3.23 L Hgb 8.8 L Hct 28.0 L MCV MCH 27 L MCHC RDW 21.3 H Plt Count Seg Neuts % (Manual) Lymphocytes % (Manual) Seg Neutrophils # Man Lymphocytes # (Manual) Monocytes # (Manual) PT INR D-Dimer ABG pH ABG pO2 ABG HCO3 ABG O2 Saturation ABG Base Excess ABG Hemoglobin Oxyhemoglobin Sodium 136 L Potassium Chloride Carbon Dioxide 20 L BUN 32 H Creatinine Glucose 109 H POC Glucose 115 H Lactic Acid Calcium 7.7 L Phosphorus Magnesium AST ALT Alkaline Phosphatase Lactate Dehydrogenase Troponin T C-Reactive Protein NT-Pro-B Natriuret Pep Total Protein Albumin LDL Cholesterol Direct Vitamin B12 Crossmatch 11/23/21 11/24/21 11/24/21 11:40 00:03 04:13 WBC RBC 3.18 L Hgb 8.5 L Hct 27.5 L MCV MCH 27 L MCHC RDW 21.6 H Plt Count Seg Neuts % (Manual) Lymphocytes % (Manual) Seg Neutrophils # Man Lymphocytes # (Manual) Monocytes # (Manual) PT INR D-Dimer ABG pH ABG pO2 ABG HCO3 ABG O2 Saturation ABG Base Excess ABG Hemoglobin Oxyhemoglobin Sodium Potassium Chloride Carbon Dioxide BUN Creatinine Glucose POC Glucose 117 H 111 H Lactic Acid Calcium Phosphorus Magnesium AST ALT Alkaline Phosphatase Lactate Dehydrogenase Troponin T C-Reactive Protein NT-Pro-B Natriuret Pep Total Protein Albumin LDL Cholesterol Direct Vitamin B12 Crossmatch 11/24/21 11/24/21 11/24/21 04:13 05:30 11:10 WBC RBC Hgb Hct MCV MCH MCHC RDW Plt Count Seg Neuts % (Manual) Lymphocytes % (Manual) Seg Neutrophils # Man Lymphocytes # (Manual) Monocytes # (Manual) PT INR D-Dimer ABG pH ABG pO2 ABG HCO3 ABG O2 Saturation ABG Base Excess ABG Hemoglobin Oxyhemoglobin Sodium Potassium Chloride Carbon Dioxide BUN 31 H Creatinine Glucose 101 H POC Glucose 115 H 107 H Lactic Acid Calcium 7.7 L Phosphorus Magnesium AST ALT Alkaline Phosphatase Lactate Dehydrogenase Troponin T C-Reactive Protein NT-Pro-B Natriuret Pep Total Protein Albumin LDL Cholesterol Direct Vitamin B12 Crossmatch 11/24/21 11/24/21 11/25/21 16:34 17:57 05:12 WBC RBC 3.11 L Hgb 8.2 L Hct 26.6 L MCV MCH 26 L MCHC RDW 21.3 H Plt Count Seg Neuts % (Manual) Lymphocytes % (Manual) Seg Neutrophils # Man Lymphocytes # (Manual) Monocytes # (Manual) PT INR D-Dimer ABG pH ABG pO2 ABG HCO3 ABG O2 Saturation ABG Base Excess ABG Hemoglobin Oxyhemoglobin Sodium Potassium Chloride Carbon Dioxide BUN Creatinine Glucose POC Glucose 115 H 110 H Lactic Acid Calcium Phosphorus Magnesium AST ALT Alkaline Phosphatase Lactate Dehydrogenase Troponin T C-Reactive Protein NT-Pro-B Natriuret Pep Total Protein Albumin LDL Cholesterol Direct Vitamin B12 Crossmatch 11/25/21 11/25/21 11/26/21 05:12 11:20 05:00 WBC RBC 3.30 L Hgb 8.8 L Hct 28.2 L MCV MCH 27 L MCHC RDW 20.7 H Plt Count Seg Neuts % (Manual) Lymphocytes % (Manual) Seg Neutrophils # Man Lymphocytes # (Manual) Monocytes # (Manual) PT INR D-Dimer ABG pH ABG pO2 ABG HCO3 ABG O2 Saturation ABG Base Excess ABG Hemoglobin Oxyhemoglobin Sodium Potassium Chloride Carbon Dioxide BUN 32 H Creatinine Glucose 118 H POC Glucose 118 H Lactic Acid Calcium 8.2 L Phosphorus Magnesium AST ALT Alkaline Phosphatase Lactate Dehydrogenase Troponin T C-Reactive Protein NT-Pro-B Natriuret Pep Total Protein Albumin LDL Cholesterol Direct Vitamin B12 Crossmatch 11/26/21 11/26/21 11/26/21 05:00 05:00 05:44 WBC RBC Hgb Hct MCV MCH MCHC RDW Plt Count Seg Neuts % (Manual) Lymphocytes % (Manual) Seg Neutrophils # Man Lymphocytes # (Manual) Monocytes # (Manual) PT 16.9 H INR 1.24 H D-Dimer ABG pH ABG pO2 ABG HCO3 ABG O2 Saturation ABG Base Excess ABG Hemoglobin Oxyhemoglobin Sodium Potassium Chloride Carbon Dioxide BUN 31 H Creatinine Glucose 104 H POC Glucose 110 H Lactic Acid Calcium 7.9 L Phosphorus Magnesium AST ALT Alkaline Phosphatase Lactate Dehydrogenase Troponin T C-Reactive Protein NT-Pro-B Natriuret Pep Total Protein Albumin LDL Cholesterol Direct Vitamin B12 Crossmatch 11/26/21 11/27/21 11/27/21 23:55 07:40 07:40 WBC RBC 3.18 L Hgb 8.5 L Hct 27.0 L MCV MCH 27 L MCHC RDW 21.2 H Plt Count Seg Neuts % (Manual) Lymphocytes % (Manual) Seg Neutrophils # Man Lymphocytes # (Manual) Monocytes # (Manual) PT INR D-Dimer ABG pH ABG pO2 ABG HCO3 ABG O2 Saturation ABG Base Excess ABG Hemoglobin Oxyhemoglobin Sodium Potassium Chloride Carbon Dioxide BUN 27 H Creatinine Glucose 112 H POC Glucose 63 L Lactic Acid Calcium 7.6 L Phosphorus Magnesium AST ALT Alkaline Phosphatase Lactate Dehydrogenase Troponin T C-Reactive Protein NT-Pro-B Natriuret Pep Total Protein Albumin LDL Cholesterol Direct Vitamin B12 Crossmatch 11/27/21 11/27/21 11/27/21 12:04 13:40 13:40 WBC RBC 3.31 L Hgb 8.7 L Hct 28.0 L MCV MCH 26 L MCHC RDW 20.7 H Plt Count Seg Neuts % (Manual) Lymphocytes % (Manual) Seg Neutrophils # Man Lymphocytes # (Manual) Monocytes # (Manual) PT INR D-Dimer ABG pH ABG pO2 ABG HCO3 ABG O2 Saturation ABG Base Excess ABG Hemoglobin Oxyhemoglobin Sodium 136 L Potassium Chloride Carbon Dioxide BUN 25 H Creatinine Glucose 127 H POC Glucose 109 H Lactic Acid Calcium 7.6 L Phosphorus Magnesium 1.40 L AST ALT Alkaline Phosphatase Lactate Dehydrogenase Troponin T C-Reactive Protein NT-Pro-B Natriuret Pep Total Protein Albumin LDL Cholesterol Direct Vitamin B12 Crossmatch 11/27/21 11/27/21 11/28/21 17:44 23:33 12:20 WBC RBC Hgb Hct MCV MCH MCHC RDW Plt Count Seg Neuts % (Manual) Lymphocytes % (Manual) Seg Neutrophils # Man Lymphocytes # (Manual) Monocytes # (Manual) PT INR D-Dimer ABG pH ABG pO2 ABG HCO3 ABG O2 Saturation ABG Base Excess ABG Hemoglobin Oxyhemoglobin Sodium Potassium Chloride Carbon Dioxide BUN Creatinine Glucose POC Glucose 107 H 108 H 114 H Lactic Acid Calcium Phosphorus Magnesium AST ALT Alkaline Phosphatase Lactate Dehydrogenase Troponin T C-Reactive Protein NT-Pro-B Natriuret Pep Total Protein Albumin LDL Cholesterol Direct Vitamin B12 Crossmatch 11/29/21 11/29/21 11/29/21 00:09 03:20 03:20 WBC RBC 3.05 L Hgb 8.2 L Hct 25.8 L MCV MCH 27 L MCHC RDW 20.9 H Plt Count Seg Neuts % (Manual) Lymphocytes % (Manual) Seg Neutrophils # Man Lymphocytes # (Manual) Monocytes # (Manual) PT INR D-Dimer ABG pH ABG pO2 ABG HCO3 ABG O2 Saturation ABG Base Excess ABG Hemoglobin Oxyhemoglobin Sodium 133 L Potassium Chloride Carbon Dioxide BUN 24 H Creatinine Glucose 137 H POC Glucose 134 H Lactic Acid Calcium 7.4 L Phosphorus Magnesium AST ALT Alkaline Phosphatase Lactate Dehydrogenase Troponin T C-Reactive Protein NT-Pro-B Natriuret Pep Total Protein Albumin LDL Cholesterol Direct Vitamin B12 Crossmatch 11/29/21 11/29/21 11/29/21 05:38 11:39 17:11 WBC RBC Hgb Hct MCV MCH MCHC RDW Plt Count Seg Neuts % (Manual) Lymphocytes % (Manual) Seg Neutrophils # Man Lymphocytes # (Manual) Monocytes # (Manual) PT INR D-Dimer ABG pH ABG pO2 ABG HCO3 ABG O2 Saturation ABG Base Excess ABG Hemoglobin Oxyhemoglobin Sodium Potassium Chloride Carbon Dioxide BUN Creatinine Glucose POC Glucose 117 H 143 H 124 H Lactic Acid Calcium Phosphorus Magnesium AST ALT Alkaline Phosphatase Lactate Dehydrogenase Troponin T C-Reactive Protein NT-Pro-B Natriuret Pep Total Protein Albumin LDL Cholesterol Direct Vitamin B12 Crossmatch 11/29/21 11/30/21 11/30/21 20:15 05:40 05:40 WBC 12.6 H RBC 3.41 L Hgb 9.1 L Hct 28.9 L MCV MCH 27 L MCHC RDW 20.4 H Plt Count Seg Neuts % (Manual) Lymphocytes % (Manual) Seg Neutrophils # Man Lymphocytes # (Manual) Monocytes # (Manual) PT INR D-Dimer ABG pH ABG pO2 ABG HCO3 ABG O2 Saturation ABG Base Excess ABG Hemoglobin Oxyhemoglobin Sodium Potassium Chloride Carbon Dioxide BUN 24 H Creatinine Glucose 131 H POC Glucose Lactic Acid Calcium 7.6 L Phosphorus Magnesium AST ALT Alkaline Phosphatase Lactate Dehydrogenase Troponin T 0.045 H C-Reactive Protein NT-Pro-B Natriuret Pep Total Protein Albumin LDL Cholesterol Direct 25 L Vitamin B12 Crossmatch 11/30/21 11/30/21 12/01/21 11:29 16:51 05:00 WBC RBC 2.97 L Hgb 8.0 L Hct 25.0 L MCV MCH 27 L MCHC RDW 20.8 H Plt Count Seg Neuts % (Manual) Lymphocytes % (Manual) Seg Neutrophils # Man Lymphocytes # (Manual) Monocytes # (Manual) PT INR D-Dimer ABG pH ABG pO2 ABG HCO3 ABG O2 Saturation ABG Base Excess ABG Hemoglobin Oxyhemoglobin Sodium Potassium Chloride Carbon Dioxide BUN Creatinine Glucose POC Glucose 123 H 114 H Lactic Acid Calcium Phosphorus Magnesium AST ALT Alkaline Phosphatase Lactate Dehydrogenase Troponin T C-Reactive Protein NT-Pro-B Natriuret Pep Total Protein Albumin LDL Cholesterol Direct Vitamin B12 Crossmatch 12/01/21 12/01/21 12/01/21 05:00 05:25 11:54 WBC RBC Hgb Hct MCV MCH MCHC RDW Plt Count Seg Neuts % (Manual) Lymphocytes % (Manual) Seg Neutrophils # Man Lymphocytes # (Manual) Monocytes # (Manual) PT INR D-Dimer ABG pH ABG pO2 ABG HCO3 ABG O2 Saturation ABG Base Excess ABG Hemoglobin Oxyhemoglobin Sodium 136 L Potassium Chloride Carbon Dioxide BUN 24 H Creatinine Glucose 117 H POC Glucose 108 H 107 H Lactic Acid Calcium 7.5 L Phosphorus Magnesium 1.60 L AST ALT Alkaline Phosphatase Lactate Dehydrogenase Troponin T C-Reactive Protein NT-Pro-B Natriuret Pep Total Protein Albumin LDL Cholesterol Direct Vitamin B12 Crossmatch 12/01/21 12/02/21 12/02/21 17:40 00:07 04:20 WBC RBC 2.92 L Hgb 7.7 L Hct 24.3 L MCV MCH 26 L MCHC RDW 20.5 H Plt Count Seg Neuts % (Manual) Lymphocytes % (Manual) Seg Neutrophils # Man Lymphocytes # (Manual) Monocytes # (Manual) PT INR D-Dimer ABG pH ABG pO2 ABG HCO3 ABG O2 Saturation ABG Base Excess ABG Hemoglobin Oxyhemoglobin Sodium Potassium Chloride Carbon Dioxide BUN Creatinine Glucose POC Glucose 123 H 110 H Lactic Acid Calcium Phosphorus Magnesium AST ALT Alkaline Phosphatase Lactate Dehydrogenase Troponin T C-Reactive Protein NT-Pro-B Natriuret Pep Total Protein Albumin LDL Cholesterol Direct Vitamin B12 Crossmatch 12/02/21 12/02/21 12/02/21 04:20 11:17 18:20 WBC RBC Hgb Hct MCV MCH MCHC RDW Plt Count Seg Neuts % (Manual) Lymphocytes % (Manual) Seg Neutrophils # Man Lymphocytes # (Manual) Monocytes # (Manual) PT INR D-Dimer ABG pH ABG pO2 ABG HCO3 ABG O2 Saturation ABG Base Excess ABG Hemoglobin Oxyhemoglobin Sodium 135 L Potassium Chloride Carbon Dioxide BUN 26 H Creatinine Glucose 121 H POC Glucose 117 H 113 H Lactic Acid Calcium 7.4 L Phosphorus Magnesium AST ALT Alkaline Phosphatase Lactate Dehydrogenase Troponin T C-Reactive Protein NT-Pro-B Natriuret Pep Total Protein Albumin LDL Cholesterol Direct Vitamin B12 Crossmatch 12/03/21 12/03/21 12/03/21 00:12 04:00 04:00 WBC RBC 2.99 L Hgb 7.8 L Hct 24.6 L MCV MCH 26 L MCHC RDW 20.2 H Plt Count Seg Neuts % (Manual) Lymphocytes % (Manual) Seg Neutrophils # Man Lymphocytes # (Manual) Monocytes # (Manual) PT INR D-Dimer ABG pH ABG pO2 ABG HCO3 ABG O2 Saturation ABG Base Excess ABG Hemoglobin Oxyhemoglobin Sodium 136 L Potassium Chloride Carbon Dioxide BUN 27 H Creatinine Glucose 133 H POC Glucose 121 H Lactic Acid Calcium 7.5 L Phosphorus Magnesium AST ALT Alkaline Phosphatase Lactate Dehydrogenase Troponin T C-Reactive Protein NT-Pro-B Natriuret Pep Total Protein Albumin LDL Cholesterol Direct Vitamin B12 Crossmatch 12/03/21 12/03/21 12/03/21 06:30 11:13 16:00 WBC RBC Hgb Hct MCV MCH MCHC RDW Plt Count Seg Neuts % (Manual) Lymphocytes % (Manual) Seg Neutrophils # Man Lymphocytes # (Manual) Monocytes # (Manual) PT INR D-Dimer ABG pH ABG pO2 ABG HCO3 ABG O2 Saturation ABG Base Excess ABG Hemoglobin Oxyhemoglobin Sodium Potassium Chloride Carbon Dioxide BUN Creatinine Glucose POC Glucose 129 H 125 H 125 H Lactic Acid Calcium Phosphorus Magnesium AST ALT Alkaline Phosphatase Lactate Dehydrogenase Troponin T C-Reactive Protein NT-Pro-B Natriuret Pep Total Protein Albumin LDL Cholesterol Direct Vitamin B12 Crossmatch 12/03/21 12/04/21 12/04/21 23:32 04:00 05:36 WBC RBC Hgb Hct MCV MCH MCHC RDW Plt Count Seg Neuts % (Manual) Lymphocytes % (Manual) Seg Neutrophils # Man Lymphocytes # (Manual) Monocytes # (Manual) PT INR D-Dimer ABG pH ABG pO2 ABG HCO3 ABG O2 Saturation ABG Base Excess ABG Hemoglobin Oxyhemoglobin Sodium Potassium 3.5 L Chloride Carbon Dioxide BUN 26 H Creatinine 0.5 L Glucose 151 H POC Glucose 133 H 142 H Lactic Acid Calcium 8.3 L Phosphorus Magnesium AST ALT Alkaline Phosphatase Lactate Dehydrogenase Troponin T C-Reactive Protein NT-Pro-B Natriuret Pep Total Protein Albumin LDL Cholesterol Direct Vitamin B12 Crossmatch 12/04/21 12/04/21 12/05/21 11:24 15:58 04:36 WBC RBC Hgb Hct MCV MCH MCHC RDW Plt Count Seg Neuts % (Manual) Lymphocytes % (Manual) Seg Neutrophils # Man Lymphocytes # (Manual) Monocytes # (Manual) PT INR D-Dimer ABG pH ABG pO2 ABG HCO3 ABG O2 Saturation ABG Base Excess ABG Hemoglobin Oxyhemoglobin Sodium Potassium Chloride Carbon Dioxide BUN 21 H Creatinine 0.5 L Glucose 119 H POC Glucose 130 H 111 H Lactic Acid Calcium 8.3 L Phosphorus Magnesium AST ALT Alkaline Phosphatase Lactate Dehydrogenase Troponin T C-Reactive Protein NT-Pro-B Natriuret Pep Total Protein Albumin LDL Cholesterol Direct Vitamin B12 Crossmatch 12/05/21 12/05/21 12/05/21 05:15 10:40 11:12 WBC RBC 2.98 L Hgb 8.1 L Hct 24.6 L MCV MCH 27 L MCHC RDW 20.8 H Plt Count Seg Neuts % (Manual) Lymphocytes % (Manual) Seg Neutrophils # Man Lymphocytes # (Manual) Monocytes # (Manual) PT INR D-Dimer ABG pH ABG pO2 ABG HCO3 ABG O2 Saturation ABG Base Excess ABG Hemoglobin Oxyhemoglobin Sodium Potassium Chloride Carbon Dioxide BUN Creatinine Glucose POC Glucose 107 H 110 H Lactic Acid Calcium Phosphorus Magnesium AST ALT Alkaline Phosphatase Lactate Dehydrogenase Troponin T C-Reactive Protein NT-Pro-B Natriuret Pep Total Protein Albumin LDL Cholesterol Direct Vitamin B12 Crossmatch 12/05/21 12/06/21 12/06/21 23:39 04:25 04:25 WBC RBC 2.95 L Hgb 7.9 L Hct 24.7 L MCV MCH 27 L MCHC RDW 20.9 H Plt Count Seg Neuts % (Manual) Lymphocytes % (Manual) Seg Neutrophils # Man Lymphocytes # (Manual) Monocytes # (Manual) PT INR D-Dimer ABG pH ABG pO2 ABG HCO3 ABG O2 Saturation ABG Base Excess ABG Hemoglobin Oxyhemoglobin Sodium Potassium Chloride Carbon Dioxide BUN 22 H Creatinine 0.5 L Glucose 136 H POC Glucose 118 H Lactic Acid Calcium 8.2 L Phosphorus Magnesium AST ALT Alkaline Phosphatase Lactate Dehydrogenase Troponin T C-Reactive Protein NT-Pro-B Natriuret Pep Total Protein Albumin LDL Cholesterol Direct Vitamin B12 Crossmatch 12/06/21 12/06/21 12/07/21 05:28 11:27 04:00 WBC RBC Hgb 7.2 L Hct 21.8 L MCV MCH MCHC RDW Plt Count Seg Neuts % (Manual) Lymphocytes % (Manual) Seg Neutrophils # Man Lymphocytes # (Manual) Monocytes # (Manual) PT INR D-Dimer ABG pH ABG pO2 ABG HCO3 ABG O2 Saturation ABG Base Excess ABG Hemoglobin Oxyhemoglobin Sodium Potassium Chloride Carbon Dioxide BUN Creatinine Glucose POC Glucose 142 H 126 H Lactic Acid Calcium Phosphorus Magnesium AST ALT Alkaline Phosphatase Lactate Dehydrogenase Troponin T C-Reactive Protein NT-Pro-B Natriuret Pep Total Protein Albumin LDL Cholesterol Direct Vitamin B12 Crossmatch 12/07/21 12/07/21 12/07/21 04:00 05:30 11:12 WBC RBC Hgb Hct MCV MCH MCHC RDW Plt Count Seg Neuts % (Manual) Lymphocytes % (Manual) Seg Neutrophils # Man Lymphocytes # (Manual) Monocytes # (Manual) PT INR D-Dimer ABG pH ABG pO2 ABG HCO3 ABG O2 Saturation ABG Base Excess ABG Hemoglobin Oxyhemoglobin Sodium Potassium Chloride Carbon Dioxide BUN 22 H Creatinine Glucose 119 H POC Glucose 121 H 124 H Lactic Acid Calcium 8.0 L Phosphorus Magnesium AST ALT Alkaline Phosphatase Lactate Dehydrogenase Troponin T C-Reactive Protein NT-Pro-B Natriuret Pep Total Protein Albumin LDL Cholesterol Direct Vitamin B12 Crossmatch 12/08/21 12/08/21 12/08/21 04:00 04:00 05:39 WBC RBC 2.81 L Hgb 7.7 L Hct 23.5 L MCV MCH MCHC RDW 21.2 H Plt Count Seg Neuts % (Manual) Lymphocytes % (Manual) Seg Neutrophils # Man Lymphocytes # (Manual) Monocytes # (Manual) PT INR D-Dimer ABG pH ABG pO2 ABG HCO3 ABG O2 Saturation ABG Base Excess ABG Hemoglobin Oxyhemoglobin Sodium 135 L Potassium Chloride Carbon Dioxide BUN 23 H Creatinine Glucose 109 H POC Glucose 112 H Lactic Acid Calcium Phosphorus Magnesium AST ALT Alkaline Phosphatase Lactate Dehydrogenase Troponin T C-Reactive Protein NT-Pro-B Natriuret Pep Total Protein Albumin LDL Cholesterol Direct Vitamin B12 Crossmatch 12/08/21 12/09/21 12/09/21 11:03 04:20 04:20 WBC RBC 2.67 L Hgb 7.6 L Hct 22.1 L MCV MCH MCHC RDW 20.8 H Plt Count Seg Neuts % (Manual) Lymphocytes % (Manual) Seg Neutrophils # Man Lymphocytes # (Manual) Monocytes # (Manual) PT INR D-Dimer ABG pH ABG pO2 ABG HCO3 ABG O2 Saturation ABG Base Excess ABG Hemoglobin Oxyhemoglobin Sodium 135 L Potassium Chloride 97.8 L Carbon Dioxide BUN 26 H Creatinine Glucose 119 H POC Glucose 108 H Lactic Acid Calcium 7.7 L Phosphorus Magnesium AST ALT Alkaline Phosphatase Lactate Dehydrogenase Troponin T C-Reactive Protein NT-Pro-B Natriuret Pep Total Protein Albumin LDL Cholesterol Direct Vitamin B12 Crossmatch 12/09/21 12/10/21 12/10/21 11:26 04:33 11:12 WBC RBC Hgb Hct MCV MCH MCHC RDW Plt Count Seg Neuts % (Manual) Lymphocytes % (Manual) Seg Neutrophils # Man Lymphocytes # (Manual) Monocytes # (Manual) PT INR D-Dimer ABG pH ABG pO2 ABG HCO3 ABG O2 Saturation ABG Base Excess ABG Hemoglobin Oxyhemoglobin Sodium 136 L Potassium Chloride Carbon Dioxide BUN 27 H Creatinine Glucose 117 H POC Glucose 110 H 117 H Lactic Acid Calcium 8.2 L Phosphorus Magnesium AST ALT Alkaline Phosphatase Lactate Dehydrogenase Troponin T C-Reactive Protein NT-Pro-B Natriuret Pep Total Protein Albumin LDL Cholesterol Direct Vitamin B12 Crossmatch 12/10/21 12/10/21 12/11/21 16:02 23:31 04:35 WBC RBC 2.57 L Hgb 7.0 L Hct 21.4 L MCV MCH 27 L MCHC RDW 21.1 H Plt Count Seg Neuts % (Manual) Lymphocytes % (Manual) Seg Neutrophils # Man Lymphocytes # (Manual) Monocytes # (Manual) PT INR D-Dimer ABG pH ABG pO2 ABG HCO3 ABG O2 Saturation ABG Base Excess ABG Hemoglobin Oxyhemoglobin Sodium Potassium Chloride Carbon Dioxide BUN Creatinine Glucose POC Glucose 137 H 111 H Lactic Acid Calcium Phosphorus Magnesium AST ALT Alkaline Phosphatase Lactate Dehydrogenase Troponin T C-Reactive Protein NT-Pro-B Natriuret Pep Total Protein Albumin LDL Cholesterol Direct Vitamin B12 Crossmatch 12/11/21 12/11/21 12/11/21 04:35 12:46 16:07 WBC RBC Hgb Hct MCV MCH MCHC RDW Plt Count Seg Neuts % (Manual) Lymphocytes % (Manual) Seg Neutrophils # Man Lymphocytes # (Manual) Monocytes # (Manual) PT INR D-Dimer ABG pH ABG pO2 ABG HCO3 ABG O2 Saturation ABG Base Excess ABG Hemoglobin Oxyhemoglobin Sodium 136 L Potassium Chloride Carbon Dioxide BUN 27 H Creatinine Glucose 112 H POC Glucose 115 H 111 H Lactic Acid Calcium 7.6 L Phosphorus Magnesium AST ALT Alkaline Phosphatase Lactate Dehydrogenase Troponin T C-Reactive Protein NT-Pro-B Natriuret Pep Total Protein Albumin LDL Cholesterol Direct Vitamin B12 Crossmatch 12/11/21 12/12/21 12/12/21 23:42 04:30 04:30 WBC RBC 2.60 L Hgb 7.1 L Hct 21.5 L MCV MCH 27 L MCHC RDW 20.3 H Plt Count Seg Neuts % (Manual) Lymphocytes % (Manual) Seg Neutrophils # Man Lymphocytes # (Manual) Monocytes # (Manual) PT INR D-Dimer ABG pH ABG pO2 ABG HCO3 ABG O2 Saturation ABG Base Excess ABG Hemoglobin Oxyhemoglobin Sodium 135 L Potassium Chloride 97.9 L Carbon Dioxide BUN 26 H Creatinine 0.5 L Glucose 138 H POC Glucose 115 H Lactic Acid Calcium 8.2 L Phosphorus Magnesium AST ALT Alkaline Phosphatase Lactate Dehydrogenase Troponin T C-Reactive Protein NT-Pro-B Natriuret Pep Total Protein Albumin LDL Cholesterol Direct Vitamin B12 Crossmatch 12/12/21 12/12/21 12/13/21 05:10 11:51 00:52 WBC RBC Hgb Hct MCV MCH MCHC RDW Plt Count Seg Neuts % (Manual) Lymphocytes % (Manual) Seg Neutrophils # Man Lymphocytes # (Manual) Monocytes # (Manual) PT INR D-Dimer ABG pH ABG pO2 ABG HCO3 ABG O2 Saturation ABG Base Excess ABG Hemoglobin Oxyhemoglobin Sodium Potassium Chloride Carbon Dioxide BUN Creatinine Glucose POC Glucose 119 H 119 H 131 H Lactic Acid Calcium Phosphorus Magnesium AST ALT Alkaline Phosphatase Lactate Dehydrogenase Troponin T C-Reactive Protein NT-Pro-B Natriuret Pep Total Protein Albumin LDL Cholesterol Direct Vitamin B12 Crossmatch 12/13/21 12/13/21 12/13/21 04:00 04:00 05:23 WBC RBC 2.73 L Hgb 7.4 L Hct 22.8 L MCV MCH 27 L MCHC RDW 20.5 H Plt Count Seg Neuts % (Manual) Lymphocytes % (Manual) Seg Neutrophils # Man Lymphocytes # (Manual) Monocytes # (Manual) PT INR D-Dimer ABG pH ABG pO2 ABG HCO3 ABG O2 Saturation ABG Base Excess ABG Hemoglobin Oxyhemoglobin Sodium 134 L Potassium Chloride 96.7 L Carbon Dioxide BUN 23 H Creatinine 0.5 L Glucose 131 H POC Glucose 121 H Lactic Acid Calcium 8.1 L Phosphorus Magnesium AST ALT Alkaline Phosphatase Lactate Dehydrogenase Troponin T C-Reactive Protein NT-Pro-B Natriuret Pep Total Protein Albumin LDL Cholesterol Direct Vitamin B12 Crossmatch 12/13/21 12/13/21 12:11 17:18 WBC RBC Hgb Hct MCV MCH MCHC RDW Plt Count Seg Neuts % (Manual) Lymphocytes % (Manual) Seg Neutrophils # Man Lymphocytes # (Manual) Monocytes # (Manual) PT INR D-Dimer ABG pH ABG pO2 ABG HCO3 ABG O2 Saturation ABG Base Excess ABG Hemoglobin Oxyhemoglobin Sodium Potassium Chloride Carbon Dioxide BUN Creatinine Glucose POC Glucose 143 H 148 H Lactic Acid Calcium Phosphorus Magnesium AST ALT Alkaline Phosphatase Lactate Dehydrogenase Troponin T C-Reactive Protein NT-Pro-B Natriuret Pep Total Protein Albumin LDL Cholesterol Direct Vitamin B12 Crossmatch Chest x-ray: report reviewed, image reviewed Additional Studies: CHEST 1 VIEW 12/11/2021 12:33 PM INDICATION / CLINICAL INFORMATION: recent thora, right pleural effusion. COMPARISON: 12/08/2021 FINDINGS: SUPPORT DEVICES: Right PICC line tip overlies the distal SVC. Pacer leads are satisfactory in position HEART / MEDIASTINUM: No significant abnormality. LUNGS / PLEURA: Diffuse bilateral pulmonary opacities most significant in the left lung and right upper lung .No pneumothorax. Allied health notes reviewed: nursing
[2021-12-13] MEDS: MELATONIN 5 MG TAB PO SCH (21:19)
[2021-12-13] MEDS: QUEtiapine 25 MG TAB PO SCH (21:19)
[2021-12-13] MEDS: PRAVASTATIN 20 MG TAB PO SCH (21:19)
[2021-12-13] MEDS: traZODone 50 MG TAB PO SCH (21:21)
[2021-12-14] MEDS: ALPRAZolam 0.25 MG TAB PO SCH (00:04)
[2021-12-14] MEDS: ACETAMINOPHEN 325 MG/10.15 ML ORAL LIQD UNIT DOSE FEEDTUBE PRN (04:21)
[2021-12-14] MEDS: LEVOTHYROXINE 125 MCG TAB PO SCH (05:06)
[2021-12-14 05:27] LABS: Hematocrit 20.3 % (30.3-42.9); Hemoglobin 6.5 gm/dl (10.1-14.3); Mean Corpuscular HGB Conc 32 % (30-34); Mean Corpuscular Volume 85 fl (79-97); Platelet Count 235 K/mm3 (140-440); Red Blood Count 2.39 M/mm3 (3.65-5.03)
[2021-12-14 05:32] LABS: Red Cell Distribution Width 20.3 % (13.2-15.2)
[2021-12-14 05:46] LABS: Blood Urea Nitrogen 25 mg/dL (7-17); Hemolysis Index 2
[2021-12-14 05:48] LABS: BUN/Creatinine Ratio 42
[2021-12-14] MEDS ORDERED: SODIUM CHLORIDE 0.9% 1000 ML 500 ML IV ONE (06:15)
[2021-12-14] MEDS: LANSOPRAZOLE 30 MG SOLUTAB FEEDTUBE SCH ×2 (10:02→21:54)
[2021-12-14] MEDS: MIDODRINE 5 MG TAB PO SCH ×3 (10:02→15:01)
[2021-12-14] MEDS: METOPROLOL TARTRATE 25 MG TAB PO SCH ×2 (10:02→21:55)
[2021-12-14] MEDS: FUROSEMIDE 20 MG TAB PO SCH (10:03)
[2021-12-14] MEDS: HYDROcodone/ACETAMINOPHEN 10-325MG TAB FEEDTUBE SCH ×3 (10:03→21:52)
[2021-12-14] MEDS: SUCRALFATE 1 GM/10 ML ORAL LIQD PO SCH ×4 (10:03→21:57)
[2021-12-14] MEDS: GABAPENTIN 100 MG CAP PO SCH (10:03)
[2021-12-14] MEDS: busPIRone 5 MG TAB PO SCH ×2 (10:03→21:51)
[2021-12-14] MEDS: SENNOSIDES ORAL LIQD 8.8 MG/5 ML ORAL LIQD PO SCH ×2 (10:04→21:57)
[2021-12-14] MEDS: POLYETHYLENE GLYCOL 3350 17 GM POWDER PO SCH (10:04)
[2021-12-14] MEDS: DOCUSATE SODIUM 100 MG/10 ML ORAL LIQD PO SCH ×2 (10:04→21:57)
[2021-12-14] MEDS ORDERED: SODIUM CHLORIDE 0.9% 500 ML 500 ML ONE (10:15)
--- NOTE | 2021-12-14 10:20 | Progress Note ---
<MAYCOLJASBIR Maria TeresaMarissa - Last Filed: 12/14/21 10:16> Assessment and Plan Assessment and plan: This is a 81-year-old female with known history of diabetes mellitus, hypertension, PPM, and arthritis admitted for sepsis and acute hypoxia respiratory failure 2/2 bilateral pneumonia requiring intubation and ventilatory support Assessment and Plan Neuro : Acute encephalopathy (resolved), agitation/ anxiety -Neurology consulted, appreciate recommendations -CT brain showed no acute events -EEG interpreted as abnormal record due to diffuse slowing noted throughout the recording, suggestive of encephalopathic process and/or drug effect, possibilities of postictal state cannot be totally excluded. Clinical correlation is in order -MRI brain not obtained-> patient has metal in her body -Repeat CT head with no acute findings -Reorientation as needed -Ammonia 42, B12 1823, TSH 1.5 -BuSpar, Seroquel, [place], gabapentin -xanax changed to PRN, fent patch dc 12/14 -prn xanax and Dilaudid Cardio: Acute Heart failure with reduced EF, h/o chronic heart block s/p PPM, HTN, CAD s/p PCI (2004), Moderate pulmonary HTN, cardiomyopathy -s/p vasopressor support with levophed -11/04 echocardiogram shows EF 30 to 35%, Moderate pulmonary HTN RVSP 49 -Cardiology consulted, appreciate recommendations -Continue beta-charleen and statin therapy -Started midodrine -Not on aspirin due to allergy -Blood pressure monitoring per protocol -As needed nitroglycerin Resp: Acute hypoxic respiratory failure secondary to bilateral pneumonia, bilateral pleural effusion. Right pneumothorax (resolved) -COVID-19 PCR negative -Intubated on 11/06 with 6.00 ETT at 18 at the lip and changed over bougie on 11/11-7.50 ETT at 20 at the lip -See RT notes for titration -PSV today -Surgery consult for trach -Received trach/PEG on 11/26 -S/p bedside bronchoscopy on 11/11 complicated by pneumothorax -S/p chest tube placement for right pneumothorax and dislodgment by patient on 11/15 -ABG/CXR per CCM -VAP bundle -Right chest wall ultrasound showed pleural effusion s/p chest tube -Review right chest wall ultrasound shows small to mod pleural effusion -Restarted on Lasix -12/11 US thoracentesis removed 1L fluid -SPO2 monitoring -Mucomyst every 8 -Albuterol every 8 GI: S/p GI bleed, duodenal ulcer, transaminitis -GI consulted, appreciate recommendations -Nutrition consult for tube feeding -BR: Senokot, MiraLAX -s/p peg 11/26 -H2 charleen -Carafate -24-hour -285 ml -BM 12/13 -10/2021 Gastric occult positive -> EGD-> duodenal ulcer -12/14 occult stool pending : Urinary retention, hyponatremia, hypochloremia -Gamble catheter in place -Strict intake and output -Trend BMP ID: Septic shock (POA), bilateral pneumonia, bacteremia -Infectious disease consulted, appreciate recommendations -COVID-19 PCR negative -Presented with fevers, leukocytosis and hypotension -11/04 blood cultures positive with a group B strep bacteremia 12/19 however repeat blood cultures on the with no growth to date -Echo showed no evidence of vegetation -ABX therapy: Ceftriaxone (), vancomycin (11/05, ), clindamycin ), cefepime , ) -Monitor WBC and fever curve -Recultured on 11/11 with NGTD -Bedside bronchoscopy for mucous plug on CXR 11/11 Heme: Acute DVT in the right external iliac vein, common femoral vein, superior aspect of femoral vein, Acute microcytic anemia -Evidenced on bilateral upper lower extremity ultrasound -S/p 5 unit PRBC -Trend CBC -Transfuse for hemoglobin less than 7 -h/h .03/09 -1 unit prbc -heparin gtt dc d/t anemia -S/p IVC filter Endo: h/o DM and hypothyroidism -Continue home Synthroid -SSI -Accu-Cheks every 6 -Avoid hypoglycemia The high probability of a clinically significant, sudden or life threatening deterioration of the [multi] system(s) required my full and direct attention, intervention and personal management. The aggregate critical care time was [60] minutes. This time is in addition to time spent performing reported procedures but includes the following: [x] Data Review and interpretation [x] Patient assessment and monitoring of vital signs [x] Documentation [x] Medication orders and management Disposition Plan: icu Total Time Spent with Patient (Minutes): 60 History Interval history: This is an 82-year-old female with DM, HTN , CHB s/p PPM, CAD s/p PCI and arthritis who presented to the emergency department on 11/04 for shortness of breath ongoing for the past 3 days, cough and according to family a fever of 102.2. Upon arrival of EMS patient was found to be tachypneic and hypoxic with SPO2 of 76% on room air which later improved to 88% on nonrebreather. Work-up in the emergency department included a CXR which showed bilateral interstitial pulmonary edema with bilateral pleural effusions and bibasilar opacities, leukocytosis and anemia with a hemoglobin of 6.1. Patient was admitted to the hospitalist service with acute anemia, acute hypoxic respiratory failure, bilateral pneumonia and COVID-19 PUI with consults to pulmonology, infectious disease and later cardiology. Patient was eventually intubated in the emergency department on 11/06. Hospital Course to date: 11/04/2021: Empiric therapy with iv levaquin/vancomycin. COVID PCR pending. Will consult ID. PCCM consulted, will follow recs. Hypotensive this AM, ordered bolus and fluids at 150 cc/hr. May require pressor support if bp does not improve. 11/05/2021: GBS on bcx +, currently on rocephin IV. Currently on bipap due to respiratory distress overnight. Worsening BL opacities on CXR. May be volume overload vs pneumonia. Unfortunately bp too low for lasix at this point. WIll continue levophed and bipap. Once able to tolerate, may do trial of albumin/lasix. Call attempt made to Niraj, no response. Will try again tomorrow to update. 11/06/2021: Decompensated overnight requiring intubation. CXR shows worsening interstitial infiltrates. Currenlty on dopamine, levophed, vasopressin. PICC line ordered. Advised RN to place gamble for I/O monitoring. Would benefit from diuresis but very volume overloaded. Prognosis guarded 11/08: Off sedation this am, remains unresponsive only grimace to pain. Hold all sedatives agents for now, patient is off pressors this am. Hypernatremia from today's lab- D5W X1bag, and low K repleted, repeat lab in the am. Severe constipation also noted from KUB, BR added. 11/09: Sudden SPO2 drop in the 60s this am. Patient was manually bagged and deep suctioned. Patient is currently stable on the vent, repeat CXR with no significant change. D/w CCM Mucomyst and brochodilator added. Patient mentation is unchanged, continue to hold off on sedative agents. Neurology consulted. 11/10: Acute DVT noted on bilateral lower extremity Doppler ultrasound therefore she was started on Lovenox treatment dose. Failed SBT. Hypernatremia and hyperchloremia noted, free water flush adjusted. 11/11: Patient noted to be febrile with increasing of the cytosis, UA/BC sent and CXR ordered. ID escalated antibiotics to cefepime. CXR demonstrated mucous plug, bedside bronchoscopy was performed and O ETT was changed over bougie from 6 cm to 7.5. Patient was noted to have a pneumothorax postprocedure and chest tube was placed. Family updated by [facility]. Free water flush increased and will add Jaswant supplementation. 11/12: Patient not noted to follow commands, hypernatremia worsen/persist, increasing free water flush, potassium and magnesium and phosphorus repleted. Hemoglobin noted to be 7./24.5 from 7.03/12 yesterday. We will continue to trend and monitor. Vent changes per [facility]. Repeat CXR showed no residual pneumothorax. Consider waterseal tomorrow. Given persistent leukocytosis antibiotics escalated to cefepime per ID. 11/13: Remains on cefepime and vancomycin, vent changes per [facility]. Anemia noted and given 1 unit PRBC. And beta-charleen held in setting of Levophed drip infusing. Remains on fentanyl drip. 11/14: Patient put on CPAP trial by [facility], will continue chest tube until after extubation. Will rest on assist control. CT brain was cancelled by clam grader and reordered. 11/15: Patient removed chest tube overnight. Will obtain cxr. remains on low dose levo. CTH completed with no acute findings. RT to place on CPAP. 11/16: Hypernatremia/hyperchloremia noted on the increase of day water flushes. Anemia noted and ordered PRBC. asked RT to place on cpap but not done yet 11/17: Patient remains on the vent, awake and following commands. H&H stable s/p 2units PRBCs. GI on consult, no intervention at this time. Will continue protonix gtt and serial H&H Q6hrs. Keep patient NPO for now, D5w added for hypernatremia and NPO status. Plan for IVC filter placement today by Vascular. 11/18: Patient is s/p IVC filter. H&H continue to trend down, hbg 6.1 this am, 1 unit of PRBCs ordered. Plan for possible EGD today by GI. Keep patient NPO, continue PPI drip and serial H&H Q6hrs. Electrolytes repleted, repeat lab in the am 11/19: S/p EGD- larger duodenal ulcer noted, see operative note. GI recommendations noted also noted. H&H stable this am. Keep patient on protonix gtt for now. Will keep patient NPO, continue IVF and serial H&H for now. Electrolytes repleted, repeat labs in the am 11/20: Very agitated and restless this am, fentanyl gtt resumed. Patient remains on protonix gtt, H&H remains stable. Will switch protonix gtt to IV BID, continue carafate and okay to resume meds at this time. Will F/u with GI to see if TF can be resumed. Gamble was reinserted overnight for retention. Electrolytes repleted, repeat in the am. Plan for possible PST today for possible extubation per CCM. 11/21: Patient is now on seroquel and patient's home buspar resumed. Patient more calm this morning, fentanyl gtt is off. H&H remains stable and patient is tolerating TF. Patient had a runs of Vtach/PVCs this am, BB added per Cardio. Continue daily PS and wean trial for possible extubation. 11/22: Back on fentanyl gtt overnight , RASS o to -1, following commands. Patient failed PST this am due to increased work of breathing and low SPO2, ABG pending. Patient is also with worsen pitting edema, lasix is still on hold. Will discuss with cardio and CCM to possibly resume lasix. 11/23: MARIA DEL CARMEN overnight. Patient failed PST again this am. Per CCM plan for possible trach and PEG, hold off on IV lasix for now. General surgery consulted and family is aware of possible Trach and PEG. 11/24: Trach/PEG pending this week, continue SBT/SAT as tolerated. No acute events reported overnight. 11/25: Patient was n.p.o. overnight and will remain n.p.o. tonight for trach/PEG tomorrow morning. She failed to support trial again. KUB obtained due to distended belly. 11/26: Patient scheduled for tracheostomy and PEG tube placement today, has been n.p.o. since midnight. No acute events reported overnight. [facility] ordered simethicone scheduled. 11/27: No acute events reported overnight, patient received trach/PEG yesterday. Has been on feedings since last night. Still awaiting LTAC placement. 11/28: Patient magnesium repleted, repeat a.m. labs, SBT 11/29: Patient complains of chest pain but ECG obtained which showed no acute findings, ordered troponin. Patient failed CPAP yesterday and was trialed again today. levophed was restarted but will aggressively wean 11/30: Patient failed SBT. Continue supportive care. Started gabapentin today 12/01: MARIA DEL CARMEN overnight. Continue daily PST. Case management to arrange possible placement 12/02: Report of dark stools overnight, patient is hemodynamically stable. H&H stable, patient is on PPI. Will continue to trend H&H. Continue daily PST as tolerated. Awaiting LTAC vs SNF placement. 12/03: Hypotensive overnight, requiring low dose pressors. S/p X3 days of gentle diurese. Will continue to monitor, wean off pressors as tolerated for MAP of 65. Patient Failed PST yesterday, case management to follow up with insurance for possible LTAC placement. Continue daily PST as tolerated. PT eval and treat ordered. 12/04: Increased agitation and anxiety overnight, remains on buspar and seroquel, trazadone added to promote rest. Patient is now working with PT, keep patient engage and awake during the day so she can rest at night. No BM for over 5 days, BR was adjusted. Patient did not tolerate PST again yesterday, continue daily PST as tolerated. Continue to titrate pressor for MAP above 65. Pending possible LTAC placement, case management to arrange. 12/05: Still not getting much rest overnight, will add melatonin for sleep. Con tinue to engage patient during the day and promote rest at night. TF was held due to concern for possible bleeding, H&H remains stable and stools normal this am. Resume TF and continue PPI and carafate. Remains on low dose levophed, titrate as tolerated. Continue daily PST. Possible LTAC placement, awaiting approval. 12/06: MARIA DEL CARMEN overnight. Patient rested overnight. Continue supportive measures. Jolene ly PST as tolerated. Awaiting possible LTAC placement 12/07: MARIA DEL CARMEN overnight. Plan for Tpiece trial today. Continue current supportive measures. Possible LTAC placement 12/08: Patient placed on pressure support trial again today, started on Xanax, no acute events reported overnight. Awaiting insurance approval for LTAC. 12/09: Levophed discontinued, LTAC transfer denied, started on midodrine and La six, ultrasound chest pending, started on Xanax 0.[address] De León updated family at bedside today. Started on Dilaudid every 3 hours as needed. 12/10: Patient placed on CPAP trial this morning, no acute events reported overnight. Will order ultrasound-guided thoracentesis. 12/11: Patient had a thoracentesis today, will decrease Xanax dosage and continue midodrine and diuresing. Patient failed CPAP today. 12/12: Patient not tolerate CPAP trials today, no acute events reported overnight 12/13: No acute events overnight. continue PSV trials as tolerated. Daughter updated at bedside 12/14: Patient noted to be anemic today, worsened gastric occult. Patient seems to be oversedated therefore Xanax changed to as needed and fentanyl patch discontinued. We will continue to monitor hyponatremia. Hospitalist Physical - Constitutional Vitals: Temp Pulse Resp BP Pulse Ox 102.9 F H 93 H 19 113/44 98 12/14/21 04:00 12/14/21 10:02 12/14/21 07:50 12/14/21 10:02 12/14/21 07:50 General appearance: Present: no acute distress, other (Trah and on the vent) - EENT Eyes: Present: PERRL, EOM intact ENT: clear oral mucosa, dentition normal - Neck Neck: Present: normal ROM - Respiratory Respiratory effort: normal Respiratory: bilateral: diminished - Cardiovascular Rhythm: regular Heart Sounds: Present: S1 & S2. Absent: systolic murmur, diastolic murmur - Extremities Extremities: no ischemia, pulses intact, pulses symmetrical, normal temperature, normal color Extremity abnormal: edema Peripheral Pulses: within normal limits - Abdominal General gastrointestinal: soft, non-tender, non-distended, normal bowel sounds - Integumentary Integumentary: Present: warm, dry - Psychiatric Psychiatric: cooperative - Neurologic Neurologic: CNII-XII intact, no focal deficits, moves all extremities - Allied Health Allied health notes reviewed: nursing, RT, social work HEART Score - HEART Score Troponin: Troponin T 0.045 ng/mL (0.00-0.029) H 11/29/21 20:15 Results - Labs CBC & Chem 7: 12/14/21 04:20 12/14/21 04:20 Labs: Laboratory Last Values WBC 8.6 K/mm3 (4.5-11.0) 12/14/21 04:20 RBC 2.39 M/mm3 (3.65-5.03) L 12/14/21 04:20 Hgb 6.5 gm/dl (10.1-14.3) L 12/14/21 04:20 Hct 20.3 % (30.3-42.9) L 12/14/21 04:20 MCV 85 fl (79-97) 12/14/21 04:20 MCH 27 pg (28-32) L 12/14/21 04:20 MCHC 32 % (30-34) 12/14/21 04:20 RDW 20.3 % (13.2-15.2) H 12/14/21 04:20 Plt Count 235 K/mm3 (140-440) 12/14/21 04:20 Add Manual Diff Complete 11/16/21 15:25 Total Counted 100 11/16/21 15:25 Seg Neutrophils % Case Management Manager 11/06/21 15:50 Seg Neuts % (Manual) 87.0 % (40.0-70.0) H 11/16/21 15:25 Band Neutrophils % 0 % 11/16/21 15:25 Lymphocytes % (Manual) 8.0 % (13.4-35.0) L 11/16/21 15:25 Reactive Lymphs % (Man) 0 % 11/16/21 15:25 Monocytes % (Manual) 5.0 % (0.0-7.3) 11/16/21 15:25 Eosinophils % (Manual) 0 % (0.0-4.3) 11/16/21 15:25 Basophils % (Manual) 0 % (0.0-1.8) 11/16/21 15:25 Metamyelocytes % 0 % 11/16/21 15:25 Myelocytes % 0 % 11/16/21 15:25 Promyelocytes % 0 % 11/16/21 15:25 Blast Cells % 0 % 11/16/21 15:25 Nucleated RBC % Not Reportable 11/16/21 15:25 Seg Neutrophils # Man 15.0 K/mm3 (1.8-7.7) H 11/16/21 15:25 Band Neutrophils # 0.0 K/mm3 11/16/21 15:25 Lymphocytes # (Manual) 1.4 K/mm3 (1.2-5.4) 11/16/21 15:25 Abs React Lymphs (Man) 0.0 K/mm3 11/16/21 15:25 Monocytes # (Manual) 0.9 K/mm3 (0.0-0.8) H 11/16/21 15:25 Eosinophils # (Manual) 0.0 K/mm3 (0.0-0.4) 11/16/21 15:25 Basophils # (Manual) 0.0 K/mm3 (0.0-0.1) 11/16/21 15:25 Metamyelocytes # 0.0 K/mm3 11/16/21 15:25 Myelocytes # 0.0 K/mm3 11/16/21 15:25 Promyelocytes # 0.0 K/mm3 11/16/21 15:25 Blast Cells # 0.0 K/mm3 11/16/21 15:25 WBC Morphology Not Reportable 11/16/21 15:25 Hypersegmented Neuts Not Reportable 11/16/21 15:25 Hyposegmented Neuts Not Reportable 11/16/21 15:25 Hypogranular Neuts Not Reportable 11/16/21 15:25 Smudge Cells Not Reportable 11/16/21 15:25 Toxic Granulation Not Reportable 11/16/21 15:25 Toxic Vacuolation Not Reportable 11/16/21 15:25 Dohle Bodies Not Reportable 11/16/21 15:25 Pelger-Huet Anomaly Not Reportable 11/16/21 15:25 Irina Rods Not Reportable 11/16/21 15:25 Platelet Estimate Consistent w auto 11/16/21 15:25 Clumped Platelets Rare 11/16/21 15:25 Plt Clumps, EDTA Not Reportable 11/16/21 15:25 Large Platelets Not Reportable 11/16/21 15:25 Giant Platelets Not Reportable 11/16/21 15:25 Platelet Satelliting Not Reportable 11/16/21 15:25 Plt Morphology Comment Not Reportable 11/16/21 15:25 RBC Morphology Not Reportable 11/16/21 15:25 Dimorphic RBCs Not Reportable 11/16/21 15:25 Polychromasia Not Reportable 11/16/21 15:25 Hypochromasia 2+ 11/16/21 15:25 Poikilocytosis Not Reportable 11/16/21 15:25 Anisocytosis 2+ 11/16/21 15:25 Microcytosis Not Reportable 11/16/21 15:25 Macrocytosis Not Reportable 11/16/21 15:25 Spherocytes Not Reportable 11/16/21 15:25 Pappenheimer Bodies Not Reportable 11/16/21 15:25 Sickle Cells Not Reportable 11/16/21 15:25 Target Cells 2+ 11/16/21 15:25 Tear Drop Cells Not Reportable 11/16/21 15:25 Ovalocytes Not Reportable 11/16/21 15:25 Helmet Cells Not Reportable 11/16/21 15:25 Odonnell-Atherton Bodies Not Reportable 11/16/21 15:25 [place] Rings Not Reportable 11/16/21 15:25 Malcom Cells Not Reportable 11/16/21 15:25 Bite Cells Not Reportable 11/16/21 15:25 Crenated Cell Not Reportable 11/16/21 15:25 Elliptocytes Not Reportable 11/16/21 15:25 Acanthocytes (Spur) Not Reportable 11/16/21 15:25 Rouleaux Not Reportable 11/16/21 15:25 Hemoglobin C Crystals Not Reportable 11/16/21 15:25 Schistocytes Not Reportable 11/16/21 15:25 Malaria parasites Not Reportable 11/16/21 15:25 Godfrey Bodies Not Reportable 11/16/21 15:25 Hem Pathologist Commnt No 11/16/21 15:25 PT 16.9 Sec. (12.2-14.9) H 11/26/21 05:00 INR 1.24 (0.87-1.13) H 11/26/21 05:00 APTT 29.2 Sec. (24.2-36.6) 11/26/21 05:00 D-Dimer 2655.00 ng/mlDDU (0-234) H 11/11/21 04:28 ABG pH 7.449 pH Units (7.350-7.450) 11/21/21 16:00 ABG pCO2 32.1 mm Hg 11/21/21 16:00 ABG pO2 114.2 mm Hg (80.0-90.0) H 11/21/21 16:00 ABG HCO3 21.8 mmol/L (20.0-26.0) 11/21/21 16:00 ABG O2 Saturation 98.3 % (95.0-99.0) 11/21/21 16:00 ABG O2 Content 12.5 (0.0-44) 11/21/21 16:00 ABG Base Excess -1.7 mmol/L (-2.0-3.0) 11/21/21 16:00 ABG Hemoglobin 9.1 gm/dl (12.0-16.0) L 11/21/21 16:00 ABG Carboxyhemoglobin 1.9 % (0.0-5.0) 11/21/21 16:00 ABG Methemoglobin 0.5 % (0.0-1.5) 11/21/21 16:00 Oxyhemoglobin 96.0 % (95.0-99.0) 11/21/21 16:00 FiO2 30 % 11/21/21 16:00 Sodium 130 mmol/L (137-145) L 12/14/21 04:20 Potassium 3.7 mmol/L (3.6-5.0) 12/14/21 04:20 Chloride 93.5 mmol/L (98-107) L 12/14/21 04:20 Carbon Dioxide 26 mmol/L (22-30) 12/14/21 04:20 Anion Gap 14 mmol/L 12/14/21 04:20 BUN 25 mg/dL (7-17) H 12/14/21 04:20 Creatinine 0.6 mg/dL (0.6-1.2) 12/14/21 04:20 Estimated GFR > 60 ml/min 12/14/21 04:20 BUN/Creatinine Ratio 42 % 12/14/21 04:20 Glucose 123 mg/dL (65-100) H 12/14/21 04:20 POC Glucose 119 mg/dL (70-105) H 12/14/21 08:17 Lactic Acid 3.70 mmol/L (0.7-2.0) H* 11/03/21 22:32 Calcium 8.0 mg/dL (8.4-10.2) L 12/14/21 04:20 Phosphorus 3.50 mg/dL (2.5-4.5) 12/08/21 04:00 Magnesium 2.20 mg/dL (1.7-2.3) 12/08/21 04:00 Ferritin 52.6 ng/mL (10.0-200.0) 11/05/21 06:11 Total Bilirubin 0.50 mg/dL (0.1-1.2) 11/17/21 05:56 Direct Bilirubin < 0.2 mg/dL (0-0.2) 11/11/21 04:28 Indirect Bilirubin 0.1 mg/dL 11/11/21 04:28 AST 36 units/L (5-40) 11/17/21 05:56 ALT 47 units/L (7-56) 11/17/21 05:56 Alkaline Phosphatase 107 units/L (35-129) 11/17/21 05:56 Ammonia 42.0 umol/L (25-60) 11/10/21 14:08 Lactate Dehydrogenase 187 units/L (91-180) H 11/05/21 06:11 Troponin T 0.045 ng/mL (0.00-0.029) H 11/29/21 20:15 C-Reactive Protein 22.20 mg/dL (0.00-1.30) H 11/05/21 06:11 NT-Pro-B Natriuret Pep 7895 pg/mL (0-900) H 11/03/21 22:32 Total Protein 5.1 g/dL (6.3-8.2) L 11/17/21 05:56 Albumin 2.2 g/dL (3.9-5) L 11/17/21 05:56 Albumin/Globulin Ratio 0.8 % 11/17/21 05:56 Triglycerides 59 mg/dL (2-149) 11/29/21 20:15 Cholesterol 74 mg/dL (50-199) 11/29/21 20:15 LDL Cholesterol Direct 25 mg/dL (50-130) L 11/29/21 20:15 HDL Cholesterol 41 mg/dL (40-59) 11/29/21 20:15 Cholesterol/HDL Ratio 1.80 % 11/29/21 20:15 Vitamin B12 1823 pg/mL (211-911) H 11/10/21 14:08 TSH 1.510 mlU/mL (0.270-4.200) 11/10/21 14:08 Urine Color Yellow (Yellow) 11/11/21 09:00 Urine Turbidity Slightly-cloudy (Clear) 11/11/21 09:00 Urine pH 5.0 (5.0-7.0) 11/11/21 09:00 Ur Specific [place] 1.009 (1.003-1.030) 11/11/21 09:00 Urine Protein <15 mg/dl mg/dL (Negative) 11/11/21 09:00 Urine Glucose (UA) Neg mg/dL (Negative) 11/11/21 09:00 Urine Ketones Neg mg/dL (Negative) 11/11/21 09:00 Urine Blood Mod (Negative) 11/11/21 09:00 Urine Nitrite Neg (Negative) 11/11/21 09:00 Urine Bilirubin Neg (Negative) 11/11/21 09:00 Urine Urobilinogen < 2.0 mg/dL (<2.0) 11/11/21 09:00 Ur Leukocyte Esterase Neg (Negative) 11/11/21 09:00 Urine WBC (Auto) < 1.0 /HPF (0.0-6.0) 11/11/21 09:00 Urine RBC (Auto) < 1.0 /HPF (0.0-6.0) 11/11/21 09:00 Coronavirus (PCR) Negative (Negative) 11/10/21 08:30 Blood Type O POSITIVE 12/12/21 04:30 Antibody Screen Negative 12/12/21 04:30 Crossmatch See Detail 12/12/21 04:30 Gamble/IV: Voiding Method Indwelling Catheter Active Medications - Current Medications Current Medications: Generic Name Dose Route Start Last Admin Trade Name Freq PRN Reason Stop Dose Admin Acetaminophen 650 mg 12/14/21 04:12 12/14/21 04:21 Acetaminophen 325 Mg/10.15 Ml Oral Liqd Unit Dose FEEDTUBE 650 mg Q6H PRN Administration Non Cardiac Pain or Temp>100.5 Hydrocodone Bitart/Acetaminophen 1 each 11/21/21 10:00 12/14/21 10:03 Hydrocodone/Acetaminophen 10-325mg Tab FEEDTUBE 1 each TID YOSSI Administration Alprazolam 0.25 mg 12/14/21 09:00 Alprazolam 0.25 Mg Tab PO Q8H PRN Agitation Lipase/Protease/Amylase 1 each 11/08/21 11:09 Lipase 10,500/Protease 25,000/Amylase 43,750 (Units) Dr Lema FEEDTUBE PRN PRN For Clogged Feeding Tube Buspirone HCl 7.5 mg 11/17/21 22:00 12/14/21 10:03 Buspirone 5 Mg Tab PO 7.5 mg BID YOSSI Administration Dextrose 0 ml 11/10/21 10:52 11/21/21 16:27 Dextrose 10% *Hypoglycemia IV 50 ml PRN PRN Administration Hypoglycemia Docusate Sodium 100 mg 12/04/21 11:00 12/14/21 10:04 Docusate Sodium 100 Mg/10 Ml Oral Liqd PO Not Given BID YOSSI Furosemide 20 mg 12/09/21 10:00 12/14/21 10:03 Furosemide 20 Mg Tab PO 20 mg QDAY YOSSI Administration Gabapentin 100 mg 12/01/21 10:00 12/14/21 10:03 Gabapentin 100 Mg Cap PO 100 mg QDAY YOSSI Administration Hydromorphone HCl 0.5 mg 12/08/21 20:06 12/13/21 18:00 Hydromorphone 1 Mg/1 Ml Inj IV 0.5 mg Q3H PRN Administration Pain, Moderate (4-6) Hydrophilic Ointment 1 applic 11/06/21 04:02 Lip Therapy Vaseline TP Q2HR PRN Dry Lips Lansoprazole 30 mg 11/24/21 22:00 12/14/21 10:02 Lansoprazole 30 Mg Solutab FEEDTUBE 30 mg BID YOSSI Administration Levothyroxine Sodium 125 mcg 11/05/21 07:00 12/14/21 05:06 Levothyroxine 125 Mcg Tab PO 125 mcg DAILY@0600 YOSSI Administration Melatonin 5 mg 12/05/21 22:00 12/13/21 21:19 Melatonin 5 Mg Tab PO 5 mg QHS [facility] Administration Metoprolol Tartrate 6.25 mg 12/08/21 22:52 12/14/21 10:02 Metoprolol Tartrate 25 Mg Tab PO 6.25 mg BID [facility] Administration Midodrine 10 mg 12/09/21 08:00 12/14/21 10:02 Midodrine 5 Mg Tab PO 10 mg TID@0800,1200,1600 [facility] Administration Multi-Ingred Cream/Lotion/Oil/Oint 1 applic 11/06/21 04:02 Mineral Oil/Petrolatum, White Ophth Oint 3.5 Gm OU Q4HR PRN Dry Eye(s) Nitroglycerin 0.4 mg 11/30/21 11:36 Nitroglycerin 0.4 Mg Tab Subl SL .Q5MIN PRN Chest Pain Ondansetron HCl 4 mg 12/05/21 10:00 12/08/21 05:17 Ondansetron 4 Mg/2 Ml Inj IV 4 mg Q8H PRN Administration Nausea And Vomiting Polyethylene Glycol 17 gm 12/02/21 10:00 12/14/21 10:04 Polyethylene Glycol 3350 17 Gm Powder PO Not Given QDAY [facility] Pravastatin Sodium 20 mg 11/18/21 22:00 12/13/21 21:19 Pravastatin 20 Mg Tab PO 20 mg QHS [facility] Administration Quetiapine Fumarate 50 mg 12/01/21 22:00 12/13/21 21:19 Quetiapine 25 Mg Tab PO 50 mg QHS [facility] Administration Senna 17.6 mg 11/08/21 22:00 12/14/21 10:04 Sennosides Oral Liqd 8.8 Mg/5 Ml Oral Liqd PO Not Given Q12HR YOSSI Simple Syrup 15 ml 11/08/21 11:09 Simple Syrup 15 Ml FEEDTUBE PRN PRN Hypoglycemia Simple Syrup 30 ml 11/08/21 11:09 Simple Syrup 15 Ml FEEDTUBE PRN PRN Hypoglycemia Sodium Bicarbonate 325 mg 11/08/21 11:09 Sodium Bicarbonate 325 Mg Tab FEEDTUBE PRN PRN For Clogged Feeding Tube Sodium Chloride 10 ml 11/04/21 10:00 12/14/21 10:03 Sodium Chloride 0.9% 10 Ml Flush Syringe IV 10 ml BID YOSSI Administration Sodium Chloride 10 ml 11/04/21 02:03 Sodium Chloride 0.9% 10 Ml Flush Syringe IV PRN PRN LINE FLUSH Sucralfate 1 gm 11/18/21 16:30 12/14/21 10:03 Sucralfate 1 Gm/10 Ml Oral Liqd PO 1 gm ACHS YOSSI Administration Trazodone HCl 50 mg 12/04/21 22:00 12/13/21 21:21 Trazodone 50 Mg Tab PO 50 mg QHS YOSSI Administration Nutrition/Malnutrition Assess - Dietary Evaluation Nutrition/Malnutrition Findings: Nutrition Notes Start: 11/04/21 17:16 Freq: Status: Active Protocol: Document 12/08/21 10:17 YOVANI (Rec: 12/08/21 10:27 [facility] [id number]) Nutrition Notes Initial or Follow up Reassessment Current Diagnosis Diabetes,Hypertension,Heart Failure,Respiratory Failure Other Pertinent Diagnosis Bilat pneu, acute GIB Current Diet TF - Vital AF 1.2 at 40ml/hr Labs/Tests Na 135 BUN 23 H/H 7.7/23.5 Pertinent Medications Colace, Miralax Height 5 ft Weight 62.4 kg Weld Body Weight (kg) 45.45 BMI 26.9 Weight Status Appropriate Subjective/Other Information Trach and PEG placed on 11/26. Pt remains on vent support. BM x 1 on yesterday; previous report of no BM x 5 days on . Pt tolerating TF. Percent of energy/protein needs met: 95% energy 96% pro Burn Absent Trauma Absent #1 Nutrition Diagnosis Inadequate oral intake Diagnosis Progress(for reassessment Continues documentation) Is patient on ventilator? Yes Is Patient Ambulatory and/or Out of Bed No REE-([facility]-confined to bed) 1207.824 Calculation Used for Recommendations [facility] Additional Notes Pro needs 1.2-2g/k-125g/ day Fluid needs 1ml/kcal Nutrition Intervention Nutrition Support: Continue Vital AF 1.2 at 40ml/ hr. Provide 65ml water flush q4h. Kcal 1,152 Protein (gm) 72 Carbohydrates (gm) 106 Fat (gm) 52 Fluid (mL) 779 Fiber (gm) 5 Goal #1 TF tolerance Goal #2 TF to meet at least 75% energy and pro needs Follow-Up By: 12/15/21 Additional Comments F/U: stable TF, vent status, wt <KADENLEAH - Last Filed: 12/14/21 15:46> Assessment and Plan Assessment and plan: I saw and evaluated the patient. I agree with the findings and the plan of care as documented in the Nurse Practitioner's~note, with the following corrections and additions. Hospitalist Physical - Constitutional Vitals: Temp Pulse Resp BP Pulse Ox 99.3 F 86 13 133/82 98 12/14/21 12:31 12/14/21 15:30 12/14/21 15:30 12/14/21 15:30 12/14/21 15:30 HEART Score - HEART Score Troponin: Troponin T 0.045 ng/mL (0.00-0.029) H 11/29/21 20:15 Results - Labs CBC & Chem 7: 12/14/21 04:20 12/14/21 04:20 Labs: Laboratory Last Values WBC 8.6 K/mm3 (4.5-11.0) 12/14/21 04:20 RBC 2.39 M/mm3 (3.65-5.03) L 12/14/21 04:20 Hgb 6.5 gm/dl (10.1-14.3) L 12/14/21 04:20 Hct 20.3 % (30.3-42.9) L 12/14/21 04:20 MCV 85 fl (79-97) 12/14/21 04:20 MCH 27 pg (28-32) L 12/14/21 04:20 MCHC 32 % (30-34) 12/14/21 04:20 RDW 20.3 % (13.2-15.2) H 12/14/21 04:20 Plt Count 235 K/mm3 (140-440) 12/14/21 04:20 Add Manual Diff Complete 11/16/21 15:25 Total Counted 100 11/16/21 15:25 Seg Neutrophils % Case Management Manager 11/06/21 15:50 Seg Neuts % (Manual) 87.0 % (40.0-70.0) H 11/16/21 15:25 Band Neutrophils % 0 % 11/16/21 15:25 Lymphocytes % (Manual) 8.0 % (13.4-35.0) L 11/16/21 15:25 Reactive Lymphs % (Man) 0 % 11/16/21 15:25 Monocytes % (Manual) 5.0 % (0.0-7.3) 11/16/21 15:25 Eosinophils % (Manual) 0 % (0.0-4.3) 11/16/21 15:25 Basophils % (Manual) 0 % (0.0-1.8) 11/16/21 15:25 Metamyelocytes % 0 % 11/16/21 15:25 Myelocytes % 0 % 11/16/21 15:25 Promyelocytes % 0 % 11/16/21 15:25 Blast Cells % 0 % 11/16/21 15:25 Nucleated RBC % Not Reportable 11/16/21 15:25 Seg Neutrophils # Man 15.0 K/mm3 (1.8-7.7) H 11/16/21 15:25 Band Neutrophils # 0.0 K/mm3 11/16/21 15:25 Lymphocytes # (Manual) 1.4 K/mm3 (1.2-5.4) 11/16/21 15:25 Abs React Lymphs (Man) 0.0 K/mm3 11/16/21 15:25 Monocytes # (Manual) 0.9 K/mm3 (0.0-0.8) H 11/16/21 15:25 Eosinophils # (Manual) 0.0 K/mm3 (0.0-0.4) 11/16/21 15:25 Basophils # (Manual) 0.0 K/mm3 (0.0-0.1) 11/16/21 15:25 Metamyelocytes # 0.0 K/mm3 11/16/21 15:25 Myelocytes # 0.0 K/mm3 11/16/21 15:25 Promyelocytes # 0.0 K/mm3 11/16/21 15:25 Blast Cells # 0.0 K/mm3 11/16/21 15:25 WBC Morphology Not Reportable 11/16/21 15:25 Hypersegmented Neuts Not Reportable 11/16/21 15:25 Hyposegmented Neuts Not Reportable 11/16/21 15:25 Hypogranular Neuts Not Reportable 11/16/21 15:25 Smudge Cells Not Reportable 11/16/21 15:25 Toxic Granulation Not Reportable 11/16/21 15:25 Toxic Vacuolation Not Reportable 11/16/21 15:25 Dohle Bodies Not Reportable 11/16/21 15:25 Pelger-Huet Anomaly Not Reportable 11/16/21 15:25 Irina Rods Not Reportable 11/16/21 15:25 Platelet Estimate Consistent w auto 11/16/21 15:25 Clumped Platelets Rare 11/16/21 15:25 Plt Clumps, EDTA Not Reportable 11/16/21 15:25 Large Platelets Not Reportable 11/16/21 15:25 Giant Platelets Not Reportable 11/16/21 15:25 Platelet Satelliting Not Reportable 11/16/21 15:25 Plt Morphology Comment Not Reportable 11/16/21 15:25 RBC Morphology Not Reportable 11/16/21 15:25 Dimorphic RBCs Not Reportable 11/16/21 15:25 Polychromasia Not Reportable 11/16/21 15:25 Hypochromasia 2+ 11/16/21 15:25 Poikilocytosis Not Reportable 11/16/21 15:25 Anisocytosis 2+ 11/16/21 15:25 Microcytosis Not Reportable 11/16/21 15:25 Macrocytosis Not Reportable 11/16/21 15:25 Spherocytes Not Reportable 11/16/21 15:25 Pappenheimer Bodies Not Reportable 11/16/21 15:25 Sickle Cells Not Reportable 11/16/21 15:25 Target Cells 2+ 11/16/21 15:25 Tear Drop Cells Not Reportable 11/16/21 15:25 Ovalocytes Not Reportable 11/16/21 15:25 Helmet Cells Not Reportable 11/16/21 15:25 Odonnell-Atherton Bodies Not Reportable 11/16/21 15:25 Verona Rings Not Reportable 11/16/21 15:25 Jay Cells Not Reportable 11/16/21 15:25 Bite Cells Not Reportable 11/16/21 15:25 Crenated Cell Not Reportable 11/16/21 15:25 Elliptocytes Not Reportable 11/16/21 15:25 Acanthocytes (Spur) Not Reportable 11/16/21 15:25 Rouleaux Not Reportable 11/16/21 15:25 Hemoglobin C Crystals Not Reportable 11/16/21 15:25 Schistocytes Not Reportable 11/16/21 15:25 Malaria parasites Not Reportable 11/16/21 15:25 Godfrey Bodies Not Reportable 11/16/21 15:25 Hem Pathologist Commnt No 11/16/21 15:25 PT 16.9 Sec. (12.2-14.9) H 11/26/21 05:00 INR 1.24 (0.87-1.13) H 11/26/21 05:00 APTT 29.2 Sec. (24.2-36.6) 11/26/21 05:00 D-Dimer 2655.00 ng/mlDDU (0-234) H 11/11/21 04:28 ABG pH 7.449 pH Units (7.350-7.450) 11/21/21 16:00 ABG pCO2 32.1 mm Hg 11/21/21 16:00 ABG pO2 114.2 mm Hg (80.0-90.0) H 11/21/21 16:00 ABG HCO3 21.8 mmol/L (20.0-26.0) 11/21/21 16:00 ABG O2 Saturation 98.3 % (95.0-99.0) 11/21/21 16:00 ABG O2 Content 12.5 (0.0-44) 11/21/21 16:00 ABG Base Excess -1.7 mmol/L (-2.0-3.0) 11/21/21 16:00 ABG Hemoglobin 9.1 gm/dl (12.0-16.0) L 11/21/21 16:00 ABG Carboxyhemoglobin 1.9 % (0.0-5.0) 11/21/21 16:00 ABG Methemoglobin 0.5 % (0.0-1.5) 11/21/21 16:00 Oxyhemoglobin 96.0 % (95.0-99.0) 11/21/21 16:00 FiO2 30 % 11/21/21 16:00 Sodium 130 mmol/L (137-145) L 12/14/21 04:20 Potassium 3.7 mmol/L (3.6-5.0) 12/14/21 04:20 Chloride 93.5 mmol/L (98-107) L 12/14/21 04:20 Carbon Dioxide 26 mmol/L (22-30) 12/14/21 04:20 Anion Gap 14 mmol/L 12/14/21 04:20 BUN 25 mg/dL (7-17) H 12/14/21 04:20 Creatinine 0.6 mg/dL (0.6-1.2) 12/14/21 04:20 Estimated GFR > 60 ml/min 12/14/21 04:20 BUN/Creatinine Ratio 42 % 12/14/21 04:20 Glucose 123 mg/dL (65-100) H 12/14/21 04:20 POC Glucose 147 mg/dL (70-105) H 12/14/21 12:15 Lactic Acid 3.70 mmol/L (0.7-2.0) H* 11/03/21 22:32 Calcium 8.0 mg/dL (8.4-10.2) L 12/14/21 04:20 Phosphorus 3.50 mg/dL (2.5-4.5) 12/08/21 04:00 Magnesium 2.20 mg/dL (1.7-2.3) 12/08/21 04:00 Ferritin 52.6 ng/mL (10.0-200.0) 11/05/21 06:11 Total Bilirubin 0.50 mg/dL (0.1-1.2) 11/17/21 05:56 Direct Bilirubin < 0.2 mg/dL (0-0.2) 11/11/21 04:28 Indirect Bilirubin 0.1 mg/dL 11/11/21 04:28 AST 36 units/L (5-40) 11/17/21 05:56 ALT 47 units/L (7-56) 11/17/21 05:56 Alkaline Phosphatase 107 units/L (35-129) 11/17/21 05:56 Ammonia 42.0 umol/L (25-60) 11/10/21 14:08 Lactate Dehydrogenase 187 units/L (91-180) H 11/05/21 06:11 Troponin T 0.045 ng/mL (0.00-0.029) H 11/29/21 20:15 C-Reactive Protein 22.20 mg/dL (0.00-1.30) H 11/05/21 06:11 NT-Pro-B Natriuret Pep 7895 pg/mL (0-900) H 11/03/21 22:32 Total Protein 5.1 g/dL (6.3-8.2) L 11/17/21 05:56 Albumin 2.2 g/dL (3.9-5) L 11/17/21 05:56 Albumin/Globulin Ratio 0.8 % 11/17/21 05:56 Triglycerides 59 mg/dL (2-149) 11/29/21 20:15 Cholesterol 74 mg/dL (50-199) 11/29/21 20:15 LDL Cholesterol Direct 25 mg/dL (50-130) L 11/29/21 20:15 HDL Cholesterol 41 mg/dL (40-59) 11/29/21 20:15 Cholesterol/HDL Ratio 1.80 % 11/29/21 20:15 Vitamin B12 1823 pg/mL (211-911) H 11/10/21 14:08 TSH 1.510 mlU/mL (0.270-4.200) 11/10/21 14:08 Urine Color Yellow (Yellow) 11/11/21 09:00 Urine Turbidity Slightly-cloudy (Clear) 11/11/21 09:00 Urine pH 5.0 (5.0-7.0) 11/11/21 09:00 Ur Specific [place] 1.009 (1.003-1.030) 11/11/21 09:00 Urine Protein <15 mg/dl mg/dL (Negative) 11/11/21 09:00 Urine Glucose (UA) Neg mg/dL (Negative) 11/11/21 09:00 Urine Ketones Neg mg/dL (Negative) 11/11/21 09:00 Urine Blood Mod (Negative) 11/11/21 09:00 Urine Nitrite Neg (Negative) 11/11/21 09:00 Urine Bilirubin Neg (Negative) 11/11/21 09:00 Urine Urobilinogen < 2.0 mg/dL (<2.0) 11/11/21 09:00 Ur Leukocyte Esterase Neg (Negative) 11/11/21 09:00 Urine WBC (Auto) < 1.0 /HPF (0.0-6.0) 11/11/21 09:00 Urine RBC (Auto) < 1.0 /HPF (0.0-6.0) 11/11/21 09:00 Coronavirus (PCR) Negative (Negative) 11/10/21 08:30 Blood Type O POSITIVE 12/14/21 10:30 Antibody Screen Negative 12/14/21 10:30 Crossmatch See Detail 12/14/21 10:30 Microbiology: Microbiology 12/14/21 11:00 Gatric Aspirate Gastric Occult Blood - Final Gamble/IV: Voiding Method Indwelling Catheter Active Medications - Current Medications Current Medications: Generic Name Dose Route Start Last Admin Trade Name Freq PRN Reason Stop Dose Admin Acetaminophen 650 mg 12/14/21 04:12 12/14/21 04:21 Acetaminophen 325 Mg/10.15 Ml Oral Liqd Unit Dose FEEDTUBE 650 mg Q6H PRN Administration Non Cardiac Pain or Temp>100.5 Hydrocodone Bitart/Acetaminophen 1 each 11/21/21 10:00 12/14/21 15:01 Hydrocodone/Acetaminophen 10-325mg Tab FEEDTUBE 1 each TID YOSSI Administration Alprazolam 0.25 mg 12/14/21 09:00 Alprazolam 0.25 Mg Tab PO Q8H PRN Agitation Lipase/Protease/Amylase 1 each 11/08/21 11:09 Lipase 10,500/Protease 25,000/Amylase 43,750 (Units) Dr Lema FEEDTUBE PRN PRN For Clogged Feeding Tube Buspirone HCl 7.5 mg 11/17/21 22:00 12/14/21 10:03 Buspirone 5 Mg Tab PO 7.5 mg BID YOSSI Administration Dextrose 0 ml 11/10/21 10:52 11/21/21 16:27 Dextrose 10% *Hypoglycemia IV 50 ml PRN PRN Administration Hypoglycemia Docusate Sodium 100 mg 12/04/21 11:00 12/14/21 10:04 Docusate Sodium 100 Mg/10 Ml Oral Liqd PO Not Given BID YOSSI Furosemide 20 mg 12/09/21 10:00 12/14/21 10:03 Furosemide 20 Mg Tab PO 20 mg QDAY YOSSI Administration Gabapentin 100 mg 12/01/21 10:00 12/14/21 10:03 Gabapentin 100 Mg Cap PO 100 mg QDAY YOSSI Administration Hydromorphone HCl 0.5 mg 12/08/21 20:06 12/13/21 18:00 Hydromorphone 1 Mg/1 Ml Inj IV 0.5 mg Q3H PRN Administration Pain, Moderate (4-6) Hydrophilic Ointment 1 applic 11/06/21 04:02 Lip Therapy Vaseline TP Q2HR PRN Dry Lips Lansoprazole 30 mg 11/24/21 22:00 12/14/21 10:02 Lansoprazole 30 Mg Solutab FEEDTUBE 30 mg BID [facility] Administration Levothyroxine Sodium 125 mcg 11/05/21 07:00 12/14/21 05:06 Levothyroxine 125 Mcg Tab PO 125 mcg DAILY@0600 [facility] Administration Melatonin 5 mg 12/05/21 22:00 12/13/21 21:19 Melatonin 5 Mg Tab PO 5 mg QHS [facility] Administration Metoprolol Tartrate 6.25 mg 12/08/21 22:52 12/14/21 10:02 Metoprolol Tartrate 25 Mg Tab PO 6.25 mg BID [facility] Administration Midodrine 10 mg 12/09/21 08:00 12/14/21 15:01 Midodrine 5 Mg Tab PO 10 mg TID@0800,1200,1600 [facility] Administration Multi-Ingred Cream/Lotion/Oil/Oint 1 applic 11/06/21 04:02 Mineral Oil/Petrolatum, White Ophth Oint 3.5 Gm OU Q4HR PRN Dry Eye(s) Nitroglycerin 0.4 mg 11/30/21 11:36 Nitroglycerin 0.4 Mg Tab Subl SL .Q5MIN PRN Chest Pain Ondansetron HCl 4 mg 12/05/21 10:00 12/08/21 05:17 Ondansetron 4 Mg/2 Ml Inj IV 4 mg Q8H PRN Administration Nausea And Vomiting Polyethylene Glycol 17 gm 12/02/21 10:00 12/14/21 10:04 Polyethylene Glycol 3350 17 Gm Powder PO Not Given QDAY [facility] Pravastatin Sodium 20 mg 11/18/21 22:00 12/13/21 21:19 Pravastatin 20 Mg Tab PO 20 mg QHS [facility] Administration Quetiapine Fumarate 50 mg 12/01/21 22:00 12/13/21 21:19 Quetiapine 25 Mg Tab PO 50 mg QHS [facility] Administration Senna 17.6 mg 11/08/21 22:00 12/14/21 10:04 Sennosides Oral Liqd 8.8 Mg/5 Ml Oral Liqd PO Not Given Q12HR [facility] Simple Syrup 15 ml 11/08/21 11:09 Simple Syrup 15 Ml FEEDTUBE PRN PRN Hypoglycemia Simple Syrup 30 ml 11/08/21 11:09 Simple Syrup 15 Ml FEEDTUBE PRN PRN Hypoglycemia Sodium Bicarbonate 325 mg 11/08/21 11:09 Sodium Bicarbonate 325 Mg Tab FEEDTUBE PRN PRN For Clogged Feeding Tube Sodium Chloride 10 ml 11/04/21 10:00 12/14/21 10:03 Sodium Chloride 0.9% 10 Ml Flush Syringe IV 10 ml BID YOSSI Administration Sodium Chloride 10 ml 11/04/21 02:03 Sodium Chloride 0.9% 10 Ml Flush Syringe IV PRN PRN LINE FLUSH Sucralfate 1 gm 11/18/21 16:30 12/14/21 12:13 Sucralfate 1 Gm/10 Ml Oral Liqd PO 1 gm ACHS YOSSI Administration Trazodone HCl 50 mg 12/04/21 22:00 12/13/21 21:21 Trazodone 50 Mg Tab PO 50 mg QHS YOSSI Administration Nutrition/Malnutrition Assess - Dietary Evaluation Nutrition/Malnutrition Findings: Nutrition Notes Start: 11/04/21 17:16 Freq: Status: Active Protocol: Document 12/08/21 10:17 [facility] (Rec: 12/08/21 10:27 [facility] [id number]) Nutrition Notes Initial or Follow up Reassessment Current Diagnosis Diabetes,Hypertension,Heart Failure,Respiratory Failure Other Pertinent Diagnosis Bilat pneu, acute GIB Current Diet TF - Vital AF 1.2 at 40ml/hr Labs/Tests Na 135 BUN 23 H/H 7.7/23.5 Pertinent Medications Colace, Miralax Height 5 ft Weight 62.4 kg Weld Body Weight (kg) 45.45 BMI 26.9 Weight Status Appropriate Subjective/Other Information Trach and PEG placed on 11/26. Pt remains on vent support. BM x 1 on yesterday; previous report of no BM x 5 days on . Pt tolerating TF. Percent of energy/protein needs met: 95% energy 96% pro Burn Absent Trauma Absent #1 Nutrition Diagnosis Inadequate oral intake Diagnosis Progress(for reassessment Continues documentation) Is patient on ventilator? Yes Is Patient Ambulatory and/or Out of Bed No REE-([facility]-confined to bed) 1207.824 [facility] Additional Notes Pro needs 1.2-2g/k-125g/ day Fluid needs 1ml/kcal Nutrition Intervention Nutrition Support: Continue Vital AF 1.2 at 40ml/ hr. Provide 65ml water flush q4h. Kcal 1,152 Protein (gm) 72 Carbohydrates (gm) 106 Fat (gm) 52 Fluid (mL) 779 Fiber (gm) 5 Goal #1 TF tolerance Goal #2 TF to meet at least 75% energy and pro needs Follow-Up By: 12/15/21 Additional Comments F/U: stable TF, vent status, wt
--- NOTE | 2021-12-14 17:27 | Progress Note ---
Assessment and Plan 81-year-old female with known history of diabetes mellitus, hypertension and arthritis brought to the emergency room via EMS for shortness of breath which has been ongoing for the past 3 days prior to come to the emergency room. Patient has been having some cough and shortness of breath. According to patient's , patient has also been having a fever of about 102.2 F. Upon arrival of EMS patient was found to be tachypneic with O2 saturation of 76% on room air which later improved to 88% on nonrebreather. Work-up in the emergency room , chest x-ray shows bilateral interstitial pulmonary edema with bilateral pleural effusions.. Bibasilar opacities which favors atelectasis. Lab reveals leukocytosis of 29. Hemoglobin of 6.1. Patient received blood transfusion and also checked for COVID-19. Patient Ivy virus test reported negative. Patient intubated and placed on mechanical ventilation. Patient presently sleeping. Not responding to verbal stimuli. Patient S/P tracheostomy. Patient presently on assist control, rate 14, Tidal volume 400, FIO2 30%, PEEP 6 and O2 saturation running 98%. I was told patient not tole rating spontaneous breathing trials. patient afebrile. No leukocytosis. Blood pressure 154/70, pulse 77, Respirations 13. Patients to days HGB 6.5. Recommend blood transfusion. Chest xray 12/11/21 reported Diffuse bilateral pulmonary opacities most significant in the left lung and right upper lung .No pneumothorax. Patient is on Prevacid and Sucralfate. I spent critical care time of 40 minutes, reviewing the chart, examine the patient, review lab results, chest xray and talk to respiratory therapy and nursing staff and work out plan of treatment in this critically ill patient. - Patient Problems (1) Acute respiratory failure with hypoxia Current Visit: Yes Status: Acute Plan to address problem: Mechanical ventilation, assist control, rate 14, Tidal volue 400, FIO2 30%, PEEP 6 S/P tracheostomy. (2) Bilateral pneumonia Current Visit: Yes Status: Acute Plan to address problem: Patient afebrile. No leukocytosis. (3) Occult blood positive stool Current Visit: Yes Status: Acute Plan to address problem: Management as per gastroenterology. (4) Acute anemia Current Visit: Yes Status: Acute Plan to address problem: Patient received blood transfusion. (5) Suspected COVID-19 virus infection Current Visit: Yes Status: Acute Plan to address problem: Ivy virus PCR negative. Subjective Date of service: 12/14/21 Principal diagnosis: Septic shock; AHRF; Anemia; Pneumonia; L. pleural effusion; HFrEF; Pulm HTN Interval history: 81-year-old female with known history of diabetes mellitus, hypertension and arthritis brought to the emergency room via EMS for shortness of breath which has been ongoing for the past 3 days prior to come to the emergency room. Patient has been having some cough and shortness of breath. According to patient's , patient has also been having a fever of about 102.2 F. Upon arrival of EMS patient was found to be tachypneic with O2 saturation of 76% on room air which later improved to 88% on nonrebreather. Work-up in the emergency room , chest x-ray shows bilateral interstitial pulmonary edema with bilateral pleural effusions.. Bibasilar opacities which fa vors atelectasis. Lab reveals leukocytosis of 29. Hemoglobin of 6.1. Patient received blood transfusion and also checked for COVID-19. Patient Ivy virus test reported negative. Patient intubated and placed on mechanical ventilation. Patient presently sleeping. Not responding to verbal stimuli. Patient S/P tracheostomy. Patient presently on assist control, rate 14, Tidal volume 400, FIO2 30%, PEEP 6 and O2 saturation running 98%. I was told patient not tolerating spontaneous breathing trials. patient afebrile. No leukocytosis. Blood pressure 154/70, pulse 77, Respirations 13. Patients to days HGB 6.5. Recommend blood transfusion. Chest xray 12/11/21 reported Diffuse bilateral pulmonary opacities most significant in the left lung and right upper lung .No pneumothorax. Patient is on Prevacid and Sucralfate. Objective Vital Signs - 12hr 12/14/21 12/14/21 12/14/21 05:30 06:00 06:30 Temperature Pulse Rate 83 81 80 Pulse Rate [ From Monitor] Respiratory 17 15 16 Rate Blood Pressure 102/35 102/32 100/36 O2 Sat by Pulse 98 98 99 Oximetry O2 Sat by Pulse Oximetry [ Assessment] 12/14/21 12/14/21 12/14/21 07:00 07:30 07:46 Temperature Pulse Rate 79 75 76 Pulse Rate [ From Monitor] Respiratory 16 16 Rate Blood Pressure 101/32 98/31 98/31 O2 Sat by Pulse 99 98 99 Oximetry O2 Sat by Pulse Oximetry [ Assessment] 12/14/21 12/14/21 12/14/21 07:50 08:00 08:30 Temperature 98.4 F Pulse Rate 75 78 84 Pulse Rate [ 78 From Monitor] Respiratory 19 16 30 H Rate Blood Pressure 98/31 102/35 105/42 O2 Sat by Pulse 98 98 98 Oximetry O2 Sat by Pulse 82 L Oximetry [ Assessment] 12/14/21 12/14/21 12/14/21 09:00 09:30 10:00 Temperature Pulse Rate 86 83 89 Pulse Rate [ From Monitor] Respiratory 19 31 H 26 H Rate Blood Pressure 128/51 112/36 113/44 O2 Sat by Pulse 96 91 93 Oximetry O2 Sat by Pulse Oximetry [ Assessment] 12/14/21 12/14/21 12/14/21 10:02 10:30 11:00 Temperature Pulse Rate 93 H 91 H 77 Pulse Rate [ From Monitor] Respiratory 31 H 24 Rate Blood Pressure 113/44 135/62 98/38 O2 Sat by Pulse 94 97 Oximetry O2 Sat by Pulse Oximetry [ Assessment] 12/14/21 12/14/21 12/14/21 11:30 12:00 12:30 Temperature 99.3 F Pulse Rate 72 82 73 Pulse Rate [ 76 From Monitor] Respiratory 25 H 17 22 Rate Blood Pressure 92/34 95/36 103/45 O2 Sat by Pulse 98 98 98 Oximetry O2 Sat by Pulse Oximetry [ Assessment] 12/14/21 12/14/21 12/14/21 12:31 13:00 13:30 Temperature 99.3 F Pulse Rate 73 79 67 Pulse Rate [ From Monitor] Respiratory 23 17 27 H Rate Blood Pressure 103/45 110/49 104/39 O2 Sat by Pulse 98 96 98 Oximetry O2 Sat by Pulse Oximetry [ Assessment] 12/14/21 12/14/21 12/14/21 13:45 14:00 14:15 Temperature Pulse Rate 73 92 H 81 Pulse Rate [ From Monitor] Respiratory 19 13 22 Rate Blood Pressure 116/46 116/46 143/66 O2 Sat by Pulse 99 90 98 Oximetry O2 Sat by Pulse Oximetry [ Assessment] 12/14/21 12/14/21 12/14/21 14:30 14:45 15:00 Temperature Pulse Rate 78 84 73 Pulse Rate [ From Monitor] Respiratory 29 H 30 H 19 Rate Blood Pressure 136/59 151/69 151/69 O2 Sat by Pulse 94 98 98 Oximetry O2 Sat by Pulse Oximetry [ Assessment] 12/14/21 12/14/21 15:30 16:00 Temperature 98.2 F Pulse Rate 86 72 Pulse Rate [ 71 From Monitor] Respiratory 13 19 Rate Blood Pressure 133/82 145/58 O2 Sat by Pulse 98 99 Oximetry O2 Sat by Pulse Oximetry [ Assessment] Constitutional: no acute distress, asleep, other (trach to MVS, frail elderly woman with mildly increased respiratory effort at rest) Eyes: non-icteric ENT: oropharynx moist, other (+ Midline tracheostomy) Neck: supple, no lymphadenopathy, no JVD Effort: mildly labored Ascultation: Bilateral: diminished breath sounds, rhonchi, other (Right chest tube) Percussion: Bilateral: not dull Cardiovascular: regular rate and rhythm, other (S1,S2) Gastrointestinal: normoactive bowel sounds, soft, non-tender, non-distended (protuberant) Integumentary: normal Extremities: no cyanosis, pink and warm, pulses normal, edema (upper etremities) Neurologic: non-focal exam (grossly), pupils equal and round Psychiatric: other (Sleeping at this time.) CBC and BMP: 12/14/21 04:20 12/14/21 04:20 ABG, PT/INR, D-dimer: ABG ABG pH 7.449 pH Units (7.350-7.450) 11/21/21 16:00 ABG pCO2 32.1 mm Hg 11/21/21 16:00 ABG pO2 114.2 mm Hg (80.0-90.0) H 11/21/21 16:00 ABG O2 Saturation 98.3 % (95.0-99.0) 11/21/21 16:00 PT/INR, D-dimer PT 16.9 Sec. (12.2-14.9) H 11/26/21 05:00 INR 1.24 (0.87-1.13) H 11/26/21 05:00 D-Dimer 2655.00 ng/mlDDU (0-234) H 11/11/21 04:28 Abnormal lab findings: Abnormal Labs 11/03/21 11/03/21 11/03/21 22:32 22:32 22:32 WBC 29.3 H RBC 2.93 L Hgb 6.1 L Hct 21.9 L MCV 75 L MCH 21 L MCHC 28 L RDW 19.7 H Plt Count Seg Neuts % (Manual) 97.0 H Lymphocytes % (Manual) 3.0 L Seg Neutrophils # Man 28.4 H Lymphocytes # (Manual) 0.9 L Monocytes # (Manual) PT 18.6 H INR 1.40 H D-Dimer ABG pH ABG pO2 ABG HCO3 ABG O2 Saturation ABG Base Excess ABG Hemoglobin Oxyhemoglobin Sodium Potassium Chloride Carbon Dioxide 20 L BUN 33 H Creatinine Glucose 119 H POC Glucose Lactic Acid Calcium 8.3 L Phosphorus Magnesium AST ALT Alkaline Phosphatase Lactate Dehydrogenase Troponin T 0.035 H C-Reactive Protein NT-Pro-B Natriuret Pep Total Protein Albumin LDL Cholesterol Direct 34 L Vitamin B12 Crossmatch 11/03/21 11/03/21 11/03/21 22:32 22:32 23:57 WBC RBC Hgb Hct MCV MCH MCHC RDW Plt Count Seg Neuts % (Manual) Lymphocytes % (Manual) Seg Neutrophils # Man Lymphocytes # (Manual) Monocytes # (Manual) PT INR D-Dimer ABG pH ABG pO2 ABG HCO3 ABG O2 Saturation ABG Base Excess ABG Hemoglobin Oxyhemoglobin Sodium Potassium Chloride Carbon Dioxide BUN Creatinine Glucose POC Glucose Lactic Acid 3.70 H* Calcium Phosphorus Magnesium AST ALT Alkaline Phosphatase 139 H Lactate Dehydrogenase Troponin T C-Reactive Protein NT-Pro-B Natriuret Pep 7895 H Total Protein Albumin 3.5 L LDL Cholesterol Direct Vitamin B12 Crossmatch See Detail 11/04/21 11/04/21 11/05/21 00:59 13:58 00:51 WBC 27.9 H RBC 3.28 L Hgb 7.3 L Hct 25.5 L MCV 78 L MCH 22 L MCHC 29 L RDW 19.1 H Plt Count Seg Neuts % (Manual) 96.0 H Lymphocytes % (Manual) 2.0 L Seg Neutrophils # Man 26.8 H Lymphocytes # (Manual) 0.6 L Monocytes # (Manual) PT INR D-Dimer ABG pH ABG pO2 ABG HCO3 ABG O2 Saturation ABG Base Excess ABG Hemoglobin Oxyhemoglobin Sodium Potassium Chloride Carbon Dioxide BUN Creatinine Glucose POC Glucose Lactic Acid Calcium Phosphorus Magnesium AST ALT Alkaline Phosphatase Lactate Dehydrogenase Troponin T 0.051 H D 0.032 H D C-Reactive Protein NT-Pro-B Natriuret Pep Total Protein Albumin LDL Cholesterol Direct Vitamin B12 Crossmatch 11/05/21 11/05/21 11/05/21 06:11 06:11 06:11 WBC 31.8 H RBC 3.57 L Hgb 8.0 L Hct 27.7 L MCV 78 L MCH 22 L MCHC 29 L RDW 19.2 H Plt Count Seg Neuts % (Manual) 91.0 H Lymphocytes % (Manual) 4.5 L Seg Neutrophils # Man 28.9 H Lymphocytes # (Manual) Monocytes # (Manual) 1.1 H PT INR D-Dimer 1494.53 H ABG pH ABG pO2 ABG HCO3 ABG O2 Saturation ABG Base Excess ABG Hemoglobin Oxyhemoglobin Sodium Potassium Chloride Carbon Dioxide 19 L BUN 42 H Creatinine Glucose 115 H POC Glucose Lactic Acid Calcium Phosphorus Magnesium AST 43 H ALT Alkaline Phosphatase Lactate Dehydrogenase 187 H Troponin T C-Reactive Protein 22.20 H NT-Pro-B Natriuret Pep Total Protein 6.0 L Albumin 3.2 L LDL Cholesterol Direct Vitamin B12 Crossmatch 11/05/21 11/05/21 11/06/21 06:11 12:15 00:30 WBC RBC Hgb Hct MCV MCH MCHC RDW Plt Count Seg Neuts % (Manual) Lymphocytes % (Manual) Seg Neutrophils # Man Lymphocytes # (Manual) Monocytes # (Manual) PT INR D-Dimer ABG pH ABG pO2 ABG HCO3 ABG O2 Saturation ABG Base Excess ABG Hemoglobin Oxyhemoglobin Sodium Potassium Chloride Carbon Dioxide BUN Creatinine Glucose POC Glucose 113 H 69 L Lactic Acid Calcium Phosphorus Magnesium AST ALT Alkaline Phosphatase Lactate Dehydrogenase Troponin T 0.033 H C-Reactive Protein NT-Pro-B Natriuret Pep Total Protein Albumin LDL Cholesterol Direct Vitamin B12 Crossmatch 11/06/21 11/06/21 11/06/21 05:50 15:50 15:50 WBC 25.5 H RBC 3.62 L Hgb 8.0 L Hct 27.5 L MCV 76 L MCH 22 L MCHC 29 L RDW 19.6 H Plt Count Seg Neuts % (Manual) 92.0 H Lymphocytes % (Manual) 5.0 L Seg Neutrophils # Man 23.5 H Lymphocytes # (Manual) Monocytes # (Manual) PT INR D-Dimer ABG pH 7.305 L ABG pO2 ABG HCO3 15.8 L ABG O2 Saturation ABG Base Excess -9.6 L ABG Hemoglobin 8.6 L Oxyhemoglobin 94.6 L Sodium Potassium Chloride 113.9 H Carbon Dioxide 17 L BUN 56 H Creatinine Glucose 114 H POC Glucose Lactic Acid Calcium 7.9 L Phosphorus Magnesium AST 1410 H ALT 934 H Alkaline Phosphatase 142 H Lactate Dehydrogenase Troponin T C-Reactive Protein NT-Pro-B Natriuret Pep Total Protein 5.0 L Albumin 2.6 L LDL Cholesterol Direct Vitamin B12 Crossmatch 11/07/21 11/07/21 11/07/21 03:30 04:50 08:07 WBC RBC Hgb Hct MCV MCH MCHC RDW Plt Count Seg Neuts % (Manual) Lymphocytes % (Manual) Seg Neutrophils # Man Lymphocytes # (Manual) Monocytes # (Manual) PT INR D-Dimer ABG pH ABG pO2 296.9 H ABG HCO3 18.1 L ABG O2 Saturation 99.5 H ABG Base Excess -5.9 L ABG Hemoglobin 7.6 L Oxyhemoglobin Sodium Potassium Chloride Carbon Dioxide BUN Creatinine Glucose POC Glucose 106 H 108 H Lactic Acid Calcium Phosphorus Magnesium AST ALT Alkaline Phosphatase Lactate Dehydrogenase Troponin T C-Reactive Protein NT-Pro-B Natriuret Pep Total Protein Albumin LDL Cholesterol Direct Vitamin B12 Crossmatch 11/08/21 11/08/21 11/08/21 03:10 18:05 23:43 WBC RBC Hgb Hct MCV MCH MCHC RDW Plt Count Seg Neuts % (Manual) Lymphocytes % (Manual) Seg Neutrophils # Man Lymphocytes # (Manual) Monocytes # (Manual) PT INR D-Dimer ABG pH ABG pO2 127.4 H ABG HCO3 ABG O2 Saturation ABG Base Excess -3.4 L ABG Hemoglobin 7.4 L Oxyhemoglobin Sodium Potassium Chloride Carbon Dioxide BUN Creatinine Glucose POC Glucose 113 H 141 H Lactic Acid Calcium Phosphorus Magnesium AST ALT Alkaline Phosphatase Lactate Dehydrogenase Troponin T C-Reactive Protein NT-Pro-B Natriuret Pep Total Protein Albumin LDL Cholesterol Direct Vitamin B12 Crossmatch 11/08/21 11/08/21 11/09/21 Unknown Unknown 02:00 WBC 14.5 H RBC 3.35 L Hgb 7.5 L 8.1 L Hct 25.4 L 27.6 L MCV 76 L 76 L MCH 23 L 22 L MCHC RDW 19.9 H 19.9 H Plt Count Seg Neuts % (Manual) Lymphocytes % (Manual) Seg Neutrophils # Man Lymphocytes # (Manual) Monocytes # (Manual) PT INR D-Dimer ABG pH ABG pO2 ABG HCO3 ABG O2 Saturation ABG Base Excess ABG Hemoglobin Oxyhemoglobin Sodium 154 H D Potassium 3.3 L Chloride 120.7 H Carbon Dioxide 20 L BUN 38 H Creatinine Glucose POC Glucose Lactic Acid Calcium 8.3 L Phosphorus Magnesium AST ALT Alkaline Phosphatase Lactate Dehydrogenase Troponin T C-Reactive Protein NT-Pro-B Natriuret Pep Total Protein Albumin LDL Cholesterol Direct Vitamin B12 Crossmatch 11/09/21 11/09/21 11/09/21 02:00 02:31 05:12 WBC RBC Hgb Hct MCV MCH MCHC RDW Plt Count Seg Neuts % (Manual) Lymphocytes % (Manual) Seg Neutrophils # Man Lymphocytes # (Manual) Monocytes # (Manual) PT INR D-Dimer ABG pH 7.479 H ABG pO2 121.3 H ABG HCO3 ABG O2 Saturation ABG Base Excess ABG Hemoglobin 7.3 L Oxyhemoglobin Sodium Potassium Chloride 112.5 H Carbon Dioxide BUN 33 H Creatinine Glucose 161 H POC Glucose 135 H Lactic Acid Calcium Phosphorus Magnesium AST 251 H ALT 481 H Alkaline Phosphatase Lactate Dehydrogenase Troponin T C-Reactive Protein NT-Pro-B Natriuret Pep Total Protein 5.0 L Albumin 2.8 L LDL Cholesterol Direct Vitamin B12 Crossmatch 11/09/21 11/09/21 11/09/21 11:33 16:32 23:28 WBC RBC Hgb Hct MCV MCH MCHC RDW Plt Count Seg Neuts % (Manual) Lymphocytes % (Manual) Seg Neutrophils # Man Lymphocytes # (Manual) Monocytes # (Manual) PT INR D-Dimer ABG pH ABG pO2 ABG HCO3 ABG O2 Saturation ABG Base Excess ABG Hemoglobin Oxyhemoglobin Sodium Potassium Chloride Carbon Dioxide BUN Creatinine Glucose POC Glucose 132 H 133 H 143 H Lactic Acid Calcium Phosphorus Magnesium AST ALT Alkaline Phosphatase Lactate Dehydrogenase Troponin T C-Reactive Protein NT-Pro-B Natriuret Pep Total Protein Albumin LDL Cholesterol Direct Vitamin B12 Crossmatch 11/10/21 11/10/21 11/10/21 04:00 04:00 05:35 WBC 16.0 H RBC 3.61 L Hgb 8.0 L Hct 27.1 L MCV 75 L MCH 22 L MCHC RDW 20.4 H Plt Count Seg Neuts % (Manual) Lymphocytes % (Manual) Seg Neutrophils # Man Lymphocytes # (Manual) Monocytes # (Manual) PT INR D-Dimer ABG pH ABG pO2 ABG HCO3 ABG O2 Saturation ABG Base Excess ABG Hemoglobin Oxyhemoglobin Sodium 149 H Potassium Chloride 114.1 H Carbon Dioxide BUN 31 H Creatinine Glucose 148 H POC Glucose 132 H Lactic Acid Calcium 8.2 L Phosphorus Magnesium AST ALT Alkaline Phosphatase Lactate Dehydrogenase Troponin T C-Reactive Protein NT-Pro-B Natriuret Pep Total Protein Albumin LDL Cholesterol Direct Vitamin B12 Crossmatch 11/10/21 11/10/21 11/10/21 11:31 14:08 15:35 WBC RBC Hgb Hct MCV MCH MCHC RDW Plt Count Seg Neuts % (Manual) Lymphocytes % (Manual) Seg Neutrophils # Man Lymphocytes # (Manual) Monocytes # (Manual) PT INR D-Dimer ABG pH ABG pO2 126.6 H ABG HCO3 ABG O2 Saturation ABG Base Excess ABG Hemoglobin 7.4 L Oxyhemoglobin Sodium Potassium Chloride Carbon Dioxide BUN Creatinine Glucose POC Glucose 147 H Lactic Acid Calcium Phosphorus Magnesium AST ALT Alkaline Phosphatase Lactate Dehydrogenase Troponin T C-Reactive Protein NT-Pro-B Natriuret Pep Total Protein Albumin LDL Cholesterol Direct Vitamin B12 1823 H Crossmatch 11/10/21 11/11/21 11/11/21 17:53 00:55 04:28 WBC RBC Hgb Hct MCV MCH MCHC RDW Plt Count Seg Neuts % (Manual) Lymphocytes % (Manual) Seg Neutrophils # Man Lymphocytes # (Manual) Monocytes # (Manual) PT INR D-Dimer ABG pH ABG pO2 ABG HCO3 ABG O2 Saturation ABG Base Excess ABG Hemoglobin Oxyhemoglobin Sodium 149 H Potassium Chloride 112.2 H Carbon Dioxide BUN 34 H Creatinine Glucose 148 H POC Glucose 140 H 145 H Lactic Acid Calcium 7.9 L Phosphorus Magnesium AST 53 H ALT 203 H Alkaline Phosphatase Lactate Dehydrogenase Troponin T C-Reactive Protein NT-Pro-B Natriuret Pep Total Protein 4.9 L Albumin 2.6 L LDL Cholesterol Direct Vitamin B12 Crossmatch 11/11/21 11/11/21 11/11/21 04:28 04:28 05:28 WBC 20.9 H RBC 3.47 L Hgb 7.5 L Hct 26.0 L MCV 75 L MCH 22 L MCHC 29 L RDW 21.6 H Plt Count 132 L Seg Neuts % (Manual) Lymphocytes % (Manual) Seg Neutrophils # Man Lymphocytes # (Manual) Monocytes # (Manual) PT INR D-Dimer 2655.00 H ABG pH ABG pO2 ABG HCO3 ABG O2 Saturation ABG Base Excess ABG Hemoglobin Oxyhemoglobin Sodium Potassium Chloride Carbon Dioxide BUN Creatinine Glucose POC Glucose 154 H Lactic Acid Calcium Phosphorus Magnesium AST ALT Alkaline Phosphatase Lactate Dehydrogenase Troponin T C-Reactive Protein NT-Pro-B Natriuret Pep Total Protein Albumin LDL Cholesterol Direct Vitamin B12 Crossmatch 11/11/21 11/11/21 11/12/21 12:38 18:13 00:14 WBC RBC Hgb Hct MCV MCH MCHC RDW Plt Count Seg Neuts % (Manual) Lymphocytes % (Manual) Seg Neutrophils # Man Lymphocytes # (Manual) Monocytes # (Manual) PT INR D-Dimer ABG pH ABG pO2 ABG HCO3 ABG O2 Saturation ABG Base Excess ABG Hemoglobin Oxyhemoglobin Sodium Potassium Chloride Carbon Dioxide BUN Creatinine Glucose POC Glucose 137 H 108 H 137 H Lactic Acid Calcium Phosphorus Magnesium AST ALT Alkaline Phosphatase Lactate Dehydrogenase Troponin T C-Reactive Protein NT-Pro-B Natriuret Pep Total Protein Albumin LDL Cholesterol Direct Vitamin B12 Crossmatch 11/12/21 11/12/21 11/12/21 05:40 06:24 11:12 WBC RBC Hgb Hct MCV MCH MCHC RDW Plt Count Seg Neuts % (Manual) Lymphocytes % (Manual) Seg Neutrophils # Man Lymphocytes # (Manual) Monocytes # (Manual) PT INR D-Dimer ABG pH 7.586 H ABG pO2 150.6 H ABG HCO3 27.2 H ABG O2 Saturation 99.1 H ABG Base Excess 5.2 H ABG Hemoglobin 7.5 L Oxyhemoglobin Sodium Potassium Chloride Carbon Dioxide BUN Creatinine Glucose POC Glucose 132 H 140 H Lactic Acid Calcium Phosphorus Magnesium AST ALT Alkaline Phosphatase Lactate Dehydrogenase Troponin T C-Reactive Protein NT-Pro-B Natriuret Pep Total Protein Albumin LDL Cholesterol Direct Vitamin B12 Crossmatch 11/12/21 11/12/21 11/12/21 14:50 14:50 17:13 WBC 19.8 H RBC 3.27 L Hgb 7.1 L Hct 24.5 L MCV 75 L MCH 22 L MCHC 29 L RDW 22.3 H Plt Count Seg Neuts % (Manual) Lymphocytes % (Manual) Seg Neutrophils # Man Lymphocytes # (Manual) Monocytes # (Manual) PT INR D-Dimer ABG pH ABG pO2 ABG HCO3 ABG O2 Saturation ABG Base Excess ABG Hemoglobin Oxyhemoglobin Sodium 150 H Potassium 3.3 L Chloride 112.0 H Carbon Dioxide BUN 40 H Creatinine Glucose 151 H POC Glucose 121 H Lactic Acid Calcium 7.4 L Phosphorus 1.70 L Magnesium 1.40 L AST ALT Alkaline Phosphatase Lactate Dehydrogenase Troponin T C-Reactive Protein NT-Pro-B Natriuret Pep Total Protein Albumin LDL Cholesterol Direct Vitamin B12 Crossmatch 11/12/21 11/13/21 11/13/21 23:19 05:34 06:30 WBC RBC Hgb Hct MCV MCH MCHC RDW Plt Count Seg Neuts % (Manual) Lymphocytes % (Manual) Seg Neutrophils # Man Lymphocytes # (Manual) Monocytes # (Manual) PT INR D-Dimer ABG pH ABG pO2 ABG HCO3 ABG O2 Saturation ABG Base Excess ABG Hemoglobin Oxyhemoglobin Sodium 149 H Potassium Chloride 60.0 L Carbon Dioxide BUN 40 H Creatinine Glucose 146 H POC Glucose 113 H 132 H Lactic Acid Calcium 7.3 L Phosphorus Magnesium 2.40 H AST ALT 72 H Alkaline Phosphatase Lactate Dehydrogenase Troponin T C-Reactive Protein NT-Pro-B Natriuret Pep Total Protein 5.2 L Albumin 2.2 L LDL Cholesterol Direct Vitamin B12 Crossmatch 11/13/21 11/13/21 11/13/21 06:30 08:30 11:19 WBC 21.2 H RBC 3.12 L Hgb 6.8 L Hct 23.2 L MCV 74 L MCH 22 L MCHC 29 L RDW 22.2 H Plt Count 135 L Seg Neuts % (Manual) Lymphocytes % (Manual) Seg Neutrophils # Man Lymphocytes # (Manual) Monocytes # (Manual) PT INR D-Dimer ABG pH ABG pO2 ABG HCO3 ABG O2 Saturation ABG Base Excess ABG Hemoglobin Oxyhemoglobin Sodium Potassium Chloride Carbon Dioxide BUN Creatinine Glucose POC Glucose 136 H Lactic Acid Calcium Phosphorus Magnesium AST ALT Alkaline Phosphatase Lactate Dehydrogenase Troponin T C-Reactive Protein NT-Pro-B Natriuret Pep Total Protein Albumin LDL Cholesterol Direct Vitamin B12 Crossmatch See Detail 11/13/21 11/14/21 11/14/21 18:21 00:01 04:46 WBC 20.0 H RBC 3.41 L Hgb 7.9 L Hct 26.8 L MCV MCH 23 L MCHC 29 L RDW 24.0 H Plt Count Seg Neuts % (Manual) Lymphocytes % (Manual) Seg Neutrophils # Man Lymphocytes # (Manual) Monocytes # (Manual) PT INR D-Dimer ABG pH ABG pO2 ABG HCO3 ABG O2 Saturation ABG Base Excess ABG Hemoglobin Oxyhemoglobin Sodium Potassium Chloride Carbon Dioxide BUN Creatinine Glucose POC Glucose 149 H 141 H Lactic Acid Calcium Phosphorus Magnesium AST ALT Alkaline Phosphatase Lactate Dehydrogenase Troponin T C-Reactive Protein NT-Pro-B Natriuret Pep Total Protein Albumin LDL Cholesterol Direct Vitamin B12 Crossmatch 11/14/21 11/14/21 11/14/21 04:46 05:10 11:10 WBC RBC Hgb Hct MCV MCH MCHC RDW Plt Count Seg Neuts % (Manual) Lymphocytes % (Manual) Seg Neutrophils # Man Lymphocytes # (Manual) Monocytes # (Manual) PT INR D-Dimer ABG pH ABG pO2 ABG HCO3 ABG O2 Saturation ABG Base Excess ABG Hemoglobin Oxyhemoglobin Sodium 148 H Potassium Chloride 113.1 H Carbon Dioxide BUN 43 H Creatinine Glucose 140 H POC Glucose 132 H 133 H Lactic Acid Calcium 7.5 L Phosphorus Magnesium AST ALT Alkaline Phosphatase Lactate Dehydrogenase Troponin T C-Reactive Protein NT-Pro-B Natriuret Pep Total Protein Albumin LDL Cholesterol Direct Vitamin B12 Crossmatch 11/14/21 11/14/21 11/14/21 16:14 17:48 23:23 WBC RBC Hgb Hct MCV MCH MCHC RDW Plt Count Seg Neuts % (Manual) Lymphocytes % (Manual) Seg Neutrophils # Man Lymphocytes # (Manual) Monocytes # (Manual) PT INR D-Dimer ABG pH ABG pO2 ABG HCO3 28.0 H ABG O2 Saturation ABG Base Excess 3.1 H ABG Hemoglobin 5.8 L Oxyhemoglobin 94.8 L Sodium Potassium Chloride Carbon Dioxide BUN Creatinine Glucose POC Glucose 130 H 136 H Lactic Acid Calcium Phosphorus Magnesium AST ALT Alkaline Phosphatase Lactate Dehydrogenase Troponin T C-Reactive Protein NT-Pro-B Natriuret Pep Total Protein Albumin LDL Cholesterol Direct Vitamin B12 Crossmatch 11/15/21 11/15/21 11/15/21 05:20 05:50 05:50 WBC 19.9 H RBC 3.50 L Hgb 8.2 L Hct 27.9 L MCV MCH 23 L MCHC 29 L RDW 24.9 H Plt Count Seg Neuts % (Manual) Lymphocytes % (Manual) Seg Neutrophils # Man Lymphocytes # (Manual) Monocytes # (Manual) PT INR D-Dimer ABG pH ABG pO2 ABG HCO3 ABG O2 Saturation ABG Base Excess ABG Hemoglobin Oxyhemoglobin Sodium 149 H Potassium Chloride 112.0 H Carbon Dioxide BUN 48 H Creatinine Glucose 152 H POC Glucose 137 H Lactic Acid Calcium 7.9 L Phosphorus Magnesium AST ALT Alkaline Phosphatase Lactate Dehydrogenase Troponin T C-Reactive Protein NT-Pro-B Natriuret Pep Total Protein Albumin LDL Cholesterol Direct Vitamin B12 Crossmatch 11/15/21 11/15/21 11/15/21 12:12 17:07 23:24 WBC RBC Hgb Hct MCV MCH MCHC RDW Plt Count Seg Neuts % (Manual) Lymphocytes % (Manual) Seg Neutrophils # Man Lymphocytes # (Manual) Monocytes # (Manual) PT INR D-Dimer ABG pH ABG pO2 ABG HCO3 ABG O2 Saturation ABG Base Excess ABG Hemoglobin Oxyhemoglobin Sodium Potassium Chloride Carbon Dioxide BUN Creatinine Glucose POC Glucose 114 H 135 H 123 H Lactic Acid Calcium Phosphorus Magnesium AST ALT Alkaline Phosphatase Lactate Dehydrogenase Troponin T C-Reactive Protein NT-Pro-B Natriuret Pep Total Protein Albumin LDL Cholesterol Direct Vitamin B12 Crossmatch 11/16/21 11/16/21 11/16/21 05:21 10:00 10:00 WBC 21.7 H RBC 2.57 L Hgb 6.0 L Hct 20.2 L D MCV MCH 24 L MCHC RDW 26.3 H Plt Count Seg Neuts % (Manual) Lymphocytes % (Manual) Seg Neutrophils # Man Lymphocytes # (Manual) Monocytes # (Manual) PT INR D-Dimer ABG pH ABG pO2 ABG HCO3 ABG O2 Saturation ABG Base Excess ABG Hemoglobin Oxyhemoglobin Sodium 153 H Potassium Chloride 114.9 H Carbon Dioxide BUN 74 H Creatinine Glucose 155 H POC Glucose 127 H Lactic Acid Calcium 8.1 L Phosphorus Magnesium AST ALT Alkaline Phosphatase Lactate Dehydrogenase Troponin T C-Reactive Protein NT-Pro-B Natriuret Pep Total Protein Albumin LDL Cholesterol Direct Vitamin B12 Crossmatch 11/16/21 11/16/21 11/16/21 11:34 14:00 15:25 WBC 17.2 H RBC 2.08 L Hgb 4.7 L* Hct 16.2 L* MCV 78 L MCH 23 L MCHC 29 L RDW 26.0 H Plt Count Seg Neuts % (Manual) 87.0 H Lymphocytes % (Manual) 8.0 L Seg Neutrophils # Man 15.0 H Lymphocytes # (Manual) Monocytes # (Manual) 0.9 H PT INR D-Dimer ABG pH ABG pO2 ABG HCO3 ABG O2 Saturation ABG Base Excess ABG Hemoglobin Oxyhemoglobin Sodium Potassium Chloride Carbon Dioxide BUN Creatinine Glucose POC Glucose 131 H Lactic Acid Calcium Phosphorus Magnesium AST ALT Alkaline Phosphatase Lactate Dehydrogenase Troponin T C-Reactive Protein NT-Pro-B Natriuret Pep Total Protein Albumin LDL Cholesterol Direct Vitamin B12 Crossmatch See Detail 11/16/21 11/16/21 11/16/21 15:25 17:21 22:43 WBC RBC Hgb 8.6 L D Hct 27.7 L D MCV MCH MCHC RDW Plt Count Seg Neuts % (Manual) Lymphocytes % (Manual) Seg Neutrophils # Man Lymphocytes # (Manual) Monocytes # (Manual) PT INR D-Dimer ABG pH ABG pO2 ABG HCO3 ABG O2 Saturation ABG Base Excess ABG Hemoglobin Oxyhemoglobin Sodium 148 H Potassium Chloride 113.2 H Carbon Dioxide BUN 84 H Creatinine Glucose 164 H POC Glucose 124 H Lactic Acid Calcium 7.6 L Phosphorus Magnesium AST ALT Alkaline Phosphatase Lactate Dehydrogenase Troponin T C-Reactive Protein NT-Pro-B Natriuret Pep Total Protein Albumin LDL Cholesterol Direct Vitamin B12 Crossmatch 11/16/21 11/17/21 11/17/21 23:07 05:33 05:56 WBC 25.1 H RBC 3.47 L Hgb 8.7 L Hct 28.5 L MCV MCH 25 L MCHC RDW 22.3 H Plt Count Seg Neuts % (Manual) Lymphocytes % (Manual) Seg Neutrophils # Man Lymphocytes # (Manual) Monocytes # (Manual) PT INR D-Dimer ABG pH ABG pO2 ABG HCO3 ABG O2 Saturation ABG Base Excess ABG Hemoglobin Oxyhemoglobin Sodium Potassium Chloride Carbon Dioxide BUN Creatinine Glucose POC Glucose 128 H 133 H Lactic Acid Calcium Phosphorus Magnesium AST ALT Alkaline Phosphatase Lactate Dehydrogenase Troponin T C-Reactive Protein NT-Pro-B Natriuret Pep Total Protein Albumin LDL Cholesterol Direct Vitamin B12 Crossmatch 11/17/21 11/17/21 11/17/21 05:56 11:00 11:55 WBC RBC Hgb 8.3 L Hct 26.9 L MCV MCH MCHC RDW Plt Count Seg Neuts % (Manual) Lymphocytes % (Manual) Seg Neutrophils # Man Lymphocytes # (Manual) Monocytes # (Manual) PT INR D-Dimer ABG pH ABG pO2 ABG HCO3 ABG O2 Saturation ABG Base Excess ABG Hemoglobin Oxyhemoglobin Sodium 151 H Potassium Chloride 113.6 H Carbon Dioxide BUN 85 H Creatinine Glucose 132 H POC Glucose 121 H Lactic Acid Calcium 7.8 L Phosphorus Magnesium AST ALT Alkaline Phosphatase Lactate Dehydrogenase Troponin T C-Reactive Protein NT-Pro-B Natriuret Pep Total Protein 5.1 L Albumin 2.2 L LDL Cholesterol Direct Vitamin B12 Crossmatch 11/17/21 11/17/21 11/18/21 18:04 18:55 00:26 WBC RBC Hgb 7.5 L 7.1 L Hct 24.8 L 23.6 L MCV MCH MCHC RDW Plt Count Seg Neuts % (Manual) Lymphocytes % (Manual) Seg Neutrophils # Man Lymphocytes # (Manual) Monocytes # (Manual) PT INR D-Dimer ABG pH ABG pO2 ABG HCO3 ABG O2 Saturation ABG Base Excess ABG Hemoglobin Oxyhemoglobin Sodium Potassium Chloride Carbon Dioxide BUN Creatinine Glucose POC Glucose 144 H Lactic Acid Calcium Phosphorus Magnesium AST ALT Alkaline Phosphatase Lactate Dehydrogenase Troponin T C-Reactive Protein NT-Pro-B Natriuret Pep Total Protein Albumin LDL Cholesterol Direct Vitamin B12 Crossmatch 11/18/21 11/18/21 11/18/21 00:43 05:10 05:10 WBC 12.5 H RBC 2.39 L Hgb 6.1 L Hct 20.2 L MCV MCH 25 L MCHC RDW 23.2 H Plt Count Seg Neuts % (Manual) Lymphocytes % (Manual) Seg Neutrophils # Man Lymphocytes # (Manual) Monocytes # (Manual) PT INR D-Dimer ABG pH ABG pO2 ABG HCO3 ABG O2 Saturation ABG Base Excess ABG Hemoglobin Oxyhemoglobin Sodium 131 L D Potassium 2.9 L* D Chloride 97.8 L Carbon Dioxide BUN 58 H Creatinine Glucose 665 H* POC Glucose 139 H Lactic Acid Calcium 7.0 L Phosphorus 2.20 L D Magnesium 1.50 L AST ALT Alkaline Phosphatase Lactate Dehydrogenase Troponin T C-Reactive Protein NT-Pro-B Natriuret Pep Total Protein Albumin LDL Cholesterol Direct Vitamin B12 Crossmatch 11/18/21 11/18/21 11/18/21 05:23 07:10 10:45 WBC RBC Hgb Hct MCV MCH MCHC RDW Plt Count Seg Neuts % (Manual) Lymphocytes % (Manual) Seg Neutrophils # Man Lymphocytes # (Manual) Monocytes # (Manual) PT INR D-Dimer ABG pH ABG pO2 ABG HCO3 ABG O2 Saturation ABG Base Excess ABG Hemoglobin Oxyhemoglobin Sodium 148 H D Potassium 3.1 L Chloride 111.9 H Carbon Dioxide BUN 63 H Creatinine Glucose 141 H POC Glucose 124 H Lactic Acid Calcium 8.1 L D Phosphorus Magnesium AST ALT Alkaline Phosphatase Lactate Dehydrogenase Troponin T C-Reactive Protein NT-Pro-B Natriuret Pep Total Protein Albumin LDL Cholesterol Direct Vitamin B12 Crossmatch See Detail 11/18/21 11/19/21 11/19/21 11:57 00:19 04:55 WBC RBC 3.35 L Hgb 9.0 L 8.9 L Hct 28.3 L D 28.1 L MCV MCH 27 L MCHC RDW 20.3 H Plt Count Seg Neuts % (Manual) Lymphocytes % (Manual) Seg Neutrophils # Man Lymphocytes # (Manual) Monocytes # (Manual) PT INR D-Dimer ABG pH ABG pO2 ABG HCO3 ABG O2 Saturation ABG Base Excess ABG Hemoglobin Oxyhemoglobin Sodium Potassium Chloride Carbon Dioxide BUN Creatinine Glucose POC Glucose 119 H Lactic Acid Calcium Phosphorus Magnesium AST ALT Alkaline Phosphatase Lactate Dehydrogenase Troponin T C-Reactive Protein NT-Pro-B Natriuret Pep Total Protein Albumin LDL Cholesterol Direct Vitamin B12 Crossmatch 11/19/21 11/19/21 11/20/21 04:55 05:42 00:55 WBC RBC Hgb 9.0 L Hct 28.6 L MCV MCH MCHC RDW Plt Count Seg Neuts % (Manual) Lymphocytes % (Manual) Seg Neutrophils # Man Lymphocytes # (Manual) Monocytes # (Manual) PT INR D-Dimer ABG pH ABG pO2 ABG HCO3 ABG O2 Saturation ABG Base Excess ABG Hemoglobin Oxyhemoglobin Sodium Potassium 3.5 L Chloride 108.6 H Carbon Dioxide BUN 47 H Creatinine Glucose 207 H POC Glucose 63 L Lactic Acid Calcium 7.1 L Phosphorus Magnesium AST ALT Alkaline Phosphatase Lactate Dehydrogenase Troponin T C-Reactive Protein NT-Pro-B Natriuret Pep Total Protein Albumin LDL Cholesterol Direct Vitamin B12 Crossmatch 11/20/21 11/20/21 11/20/21 05:40 05:40 Unknown WBC RBC 3.40 L Hgb 9.1 L Hct 28.8 L MCV MCH 27 L MCHC RDW 20.7 H Plt Count Seg Neuts % (Manual) Lymphocytes % (Manual) Seg Neutrophils # Man Lymphocytes # (Manual) Monocytes # (Manual) PT INR D-Dimer ABG pH ABG pO2 ABG HCO3 ABG O2 Saturation ABG Base Excess -2.7 L ABG Hemoglobin 9.5 L Oxyhemoglobin 94.3 L Sodium Potassium 3.5 L Chloride 108.9 H Carbon Dioxide BUN 37 H Creatinine Glucose 117 H POC Glucose Lactic Acid Calcium 7.5 L Phosphorus Magnesium AST ALT Alkaline Phosphatase Lactate Dehydrogenase Troponin T C-Reactive Protein NT-Pro-B Natriuret Pep Total Protein Albumin LDL Cholesterol Direct Vitamin B12 Crossmatch 11/21/21 11/21/21 11/21/21 04:30 04:30 16:00 WBC RBC 3.25 L Hgb 8.6 L Hct 28.1 L MCV MCH 26 L MCHC RDW 20.7 H Plt Count Seg Neuts % (Manual) Lymphocytes % (Manual) Seg Neutrophils # Man Lymphocytes # (Manual) Monocytes # (Manual) PT INR D-Dimer ABG pH ABG pO2 114.2 H ABG HCO3 ABG O2 Saturation ABG Base Excess ABG Hemoglobin 9.1 L Oxyhemoglobin Sodium 134 L Potassium Chloride Carbon Dioxide 20 L BUN 34 H Creatinine Glucose POC Glucose Lactic Acid Calcium 7.1 L Phosphorus Magnesium AST ALT Alkaline Phosphatase Lactate Dehydrogenase Troponin T C-Reactive Protein NT-Pro-B Natriuret Pep Total Protein Albumin LDL Cholesterol Direct Vitamin B12 Crossmatch 11/22/21 11/22/21 11/22/21 07:07 07:07 23:54 WBC RBC 3.30 L Hgb 9.0 L Hct 28.5 L MCV MCH 27 L MCHC RDW 21.0 H Plt Count Seg Neuts % (Manual) Lymphocytes % (Manual) Seg Neutrophils # Man Lymphocytes # (Manual) Monocytes # (Manual) PT INR D-Dimer ABG pH ABG pO2 ABG HCO3 ABG O2 Saturation ABG Base Excess ABG Hemoglobin Oxyhemoglobin Sodium Potassium Chloride Carbon Dioxide BUN 32 H Creatinine Glucose 106 H POC Glucose 110 H Lactic Acid Calcium 7.5 L Phosphorus Magnesium AST ALT Alkaline Phosphatase Lactate Dehydrogenase Troponin T C-Reactive Protein NT-Pro-B Natriuret Pep Total Protein Albumin LDL Cholesterol Direct Vitamin B12 Crossmatch 11/23/21 11/23/21 11/23/21 04:38 04:38 06:01 WBC RBC 3.23 L Hgb 8.8 L Hct 28.0 L MCV MCH 27 L MCHC RDW 21.3 H Plt Count Seg Neuts % (Manual) Lymphocytes % (Manual) Seg Neutrophils # Man Lymphocytes # (Manual) Monocytes # (Manual) PT INR D-Dimer ABG pH ABG pO2 ABG HCO3 ABG O2 Saturation ABG Base Excess ABG Hemoglobin Oxyhemoglobin Sodium 136 L Potassium Chloride Carbon Dioxide 20 L BUN 32 H Creatinine Glucose 109 H POC Glucose 115 H Lactic Acid Calcium 7.7 L Phosphorus Magnesium AST ALT Alkaline Phosphatase Lactate Dehydrogenase Troponin T C-Reactive Protein NT-Pro-B Natriuret Pep Total Protein Albumin LDL Cholesterol Direct Vitamin B12 Crossmatch 11/23/21 11/24/21 11/24/21 11:40 00:03 04:13 WBC RBC 3.18 L Hgb 8.5 L Hct 27.5 L MCV MCH 27 L MCHC RDW 21.6 H Plt Count Seg Neuts % (Manual) Lymphocytes % (Manual) Seg Neutrophils # Man Lymphocytes # (Manual) Monocytes # (Manual) PT INR D-Dimer ABG pH ABG pO2 ABG HCO3 ABG O2 Saturation ABG Base Excess ABG Hemoglobin Oxyhemoglobin Sodium Potassium Chloride Carbon Dioxide BUN Creatinine Glucose POC Glucose 117 H 111 H Lactic Acid Calcium Phosphorus Magnesium AST ALT Alkaline Phosphatase Lactate Dehydrogenase Troponin T C-Reactive Protein NT-Pro-B Natriuret Pep Total Protein Albumin LDL Cholesterol Direct Vitamin B12 Crossmatch 11/24/21 11/24/21 11/24/21 04:13 05:30 11:10 WBC RBC Hgb Hct MCV MCH MCHC RDW Plt Count Seg Neuts % (Manual) Lymphocytes % (Manual) Seg Neutrophils # Man Lymphocytes # (Manual) Monocytes # (Manual) PT INR D-Dimer ABG pH ABG pO2 ABG HCO3 ABG O2 Saturation ABG Base Excess ABG Hemoglobin Oxyhemoglobin Sodium Potassium Chloride Carbon Dioxide BUN 31 H Creatinine Glucose 101 H POC Glucose 115 H 107 H Lactic Acid Calcium 7.7 L Phosphorus Magnesium AST ALT Alkaline Phosphatase Lactate Dehydrogenase Troponin T C-Reactive Protein NT-Pro-B Natriuret Pep Total Protein Albumin LDL Cholesterol Direct Vitamin B12 Crossmatch 11/24/21 11/24/21 11/25/21 16:34 17:57 05:12 WBC RBC 3.11 L Hgb 8.2 L Hct 26.6 L MCV MCH 26 L MCHC RDW 21.3 H Plt Count Seg Neuts % (Manual) Lymphocytes % (Manual) Seg Neutrophils # Man Lymphocytes # (Manual) Monocytes # (Manual) PT INR D-Dimer ABG pH ABG pO2 ABG HCO3 ABG O2 Saturation ABG Base Excess ABG Hemoglobin Oxyhemoglobin Sodium Potassium Chloride Carbon Dioxide BUN Creatinine Glucose POC Glucose 115 H 110 H Lactic Acid Calcium Phosphorus Magnesium AST ALT Alkaline Phosphatase Lactate Dehydrogenase Troponin T C-Reactive Protein NT-Pro-B Natriuret Pep Total Protein Albumin LDL Cholesterol Direct Vitamin B12 Crossmatch 11/25/21 11/25/21 11/26/21 05:12 11:20 05:00 WBC RBC 3.30 L Hgb 8.8 L Hct 28.2 L MCV MCH 27 L MCHC RDW 20.7 H Plt Count Seg Neuts % (Manual) Lymphocytes % (Manual) Seg Neutrophils # Man Lymphocytes # (Manual) Monocytes # (Manual) PT INR D-Dimer ABG pH ABG pO2 ABG HCO3 ABG O2 Saturation ABG Base Excess ABG Hemoglobin Oxyhemoglobin Sodium Potassium Chloride Carbon Dioxide BUN 32 H Creatinine Glucose 118 H POC Glucose 118 H Lactic Acid Calcium 8.2 L Phosphorus Magnesium AST ALT Alkaline Phosphatase Lactate Dehydrogenase Troponin T C-Reactive Protein NT-Pro-B Natriuret Pep Total Protein Albumin LDL Cholesterol Direct Vitamin B12 Crossmatch 11/26/21 11/26/21 11/26/21 05:00 05:00 05:44 WBC RBC Hgb Hct MCV MCH MCHC RDW Plt Count Seg Neuts % (Manual) Lymphocytes % (Manual) Seg Neutrophils # Man Lymphocytes # (Manual) Monocytes # (Manual) PT 16.9 H INR 1.24 H D-Dimer ABG pH ABG pO2 ABG HCO3 ABG O2 Saturation ABG Base Excess ABG Hemoglobin Oxyhemoglobin Sodium Potassium Chloride Carbon Dioxide BUN 31 H Creatinine Glucose 104 H POC Glucose 110 H Lactic Acid Calcium 7.9 L Phosphorus Magnesium AST ALT Alkaline Phosphatase Lactate Dehydrogenase Troponin T C-Reactive Protein NT-Pro-B Natriuret Pep Total Protein Albumin LDL Cholesterol Direct Vitamin B12 Crossmatch 11/26/21 11/27/21 11/27/21 23:55 07:40 07:40 WBC RBC 3.18 L Hgb 8.5 L Hct 27.0 L MCV MCH 27 L MCHC RDW 21.2 H Plt Count Seg Neuts % (Manual) Lymphocytes % (Manual) Seg Neutrophils # Man Lymphocytes # (Manual) Monocytes # (Manual) PT INR D-Dimer ABG pH ABG pO2 ABG HCO3 ABG O2 Saturation ABG Base Excess ABG Hemoglobin Oxyhemoglobin Sodium Potassium Chloride Carbon Dioxide BUN 27 H Creatinine Glucose 112 H POC Glucose 63 L Lactic Acid Calcium 7.6 L Phosphorus Magnesium AST ALT Alkaline Phosphatase Lactate Dehydrogenase Troponin T C-Reactive Protein NT-Pro-B Natriuret Pep Total Protein Albumin LDL Cholesterol Direct Vitamin B12 Crossmatch 11/27/21 11/27/21 11/27/21 12:04 13:40 13:40 WBC RBC 3.31 L Hgb 8.7 L Hct 28.0 L MCV MCH 26 L MCHC RDW 20.7 H Plt Count Seg Neuts % (Manual) Lymphocytes % (Manual) Seg Neutrophils # Man Lymphocytes # (Manual) Monocytes # (Manual) PT INR D-Dimer ABG pH ABG pO2 ABG HCO3 ABG O2 Saturation ABG Base Excess ABG Hemoglobin Oxyhemoglobin Sodium 136 L Potassium Chloride Carbon Dioxide BUN 25 H Creatinine Glucose 127 H POC Glucose 109 H Lactic Acid Calcium 7.6 L Phosphorus Magnesium 1.40 L AST ALT Alkaline Phosphatase Lactate Dehydrogenase Troponin T C-Reactive Protein NT-Pro-B Natriuret Pep Total Protein Albumin LDL Cholesterol Direct Vitamin B12 Crossmatch 11/27/21 11/27/21 11/28/21 17:44 23:33 12:20 WBC RBC Hgb Hct MCV MCH MCHC RDW Plt Count Seg Neuts % (Manual) Lymphocytes % (Manual) Seg Neutrophils # Man Lymphocytes # (Manual) Monocytes # (Manual) PT INR D-Dimer ABG pH ABG pO2 ABG HCO3 ABG O2 Saturation ABG Base Excess ABG Hemoglobin Oxyhemoglobin Sodium Potassium Chloride Carbon Dioxide BUN Creatinine Glucose POC Glucose 107 H 108 H 114 H Lactic Acid Calcium Phosphorus Magnesium AST ALT Alkaline Phosphatase Lactate Dehydrogenase Troponin T C-Reactive Protein NT-Pro-B Natriuret Pep Total Protein Albumin LDL Cholesterol Direct Vitamin B12 Crossmatch 11/29/21 11/29/21 11/29/21 00:09 03:20 03:20 WBC RBC 3.05 L Hgb 8.2 L Hct 25.8 L MCV MCH 27 L MCHC RDW 20.9 H Plt Count Seg Neuts % (Manual) Lymphocytes % (Manual) Seg Neutrophils # Man Lymphocytes # (Manual) Monocytes # (Manual) PT INR D-Dimer ABG pH ABG pO2 ABG HCO3 ABG O2 Saturation ABG Base Excess ABG Hemoglobin Oxyhemoglobin Sodium 133 L Potassium Chloride Carbon Dioxide BUN 24 H Creatinine Glucose 137 H POC Glucose 134 H Lactic Acid Calcium 7.4 L Phosphorus Magnesium AST ALT Alkaline Phosphatase Lactate Dehydrogenase Troponin T C-Reactive Protein NT-Pro-B Natriuret Pep Total Protein Albumin LDL Cholesterol Direct Vitamin B12 Crossmatch 11/29/21 11/29/21 11/29/21 05:38 11:39 17:11 WBC RBC Hgb Hct MCV MCH MCHC RDW Plt Count Seg Neuts % (Manual) Lymphocytes % (Manual) Seg Neutrophils # Man Lymphocytes # (Manual) Monocytes # (Manual) PT INR D-Dimer ABG pH ABG pO2 ABG HCO3 ABG O2 Saturation ABG Base Excess ABG Hemoglobin Oxyhemoglobin Sodium Potassium Chloride Carbon Dioxide BUN Creatinine Glucose POC Glucose 117 H 143 H 124 H Lactic Acid Calcium Phosphorus Magnesium AST ALT Alkaline Phosphatase Lactate Dehydrogenase Troponin T C-Reactive Protein NT-Pro-B Natriuret Pep Total Protein Albumin LDL Cholesterol Direct Vitamin B12 Crossmatch 11/29/21 11/30/21 11/30/21 20:15 05:40 05:40 WBC 12.6 H RBC 3.41 L Hgb 9.1 L Hct 28.9 L MCV MCH 27 L MCHC RDW 20.4 H Plt Count Seg Neuts % (Manual) Lymphocytes % (Manual) Seg Neutrophils # Man Lymphocytes # (Manual) Monocytes # (Manual) PT INR D-Dimer ABG pH ABG pO2 ABG HCO3 ABG O2 Saturation ABG Base Excess ABG Hemoglobin Oxyhemoglobin Sodium Potassium Chloride Carbon Dioxide BUN 24 H Creatinine Glucose 131 H POC Glucose Lactic Acid Calcium 7.6 L Phosphorus Magnesium AST ALT Alkaline Phosphatase Lactate Dehydrogenase Troponin T 0.045 H C-Reactive Protein NT-Pro-B Natriuret Pep Total Protein Albumin LDL Cholesterol Direct 25 L Vitamin B12 Crossmatch 11/30/21 11/30/21 12/01/21 11:29 16:51 05:00 WBC RBC 2.97 L Hgb 8.0 L Hct 25.0 L MCV MCH 27 L MCHC RDW 20.8 H Plt Count Seg Neuts % (Manual) Lymphocytes % (Manual) Seg Neutrophils # Man Lymphocytes # (Manual) Monocytes # (Manual) PT INR D-Dimer ABG pH ABG pO2 ABG HCO3 ABG O2 Saturation ABG Base Excess ABG Hemoglobin Oxyhemoglobin Sodium Potassium Chloride Carbon Dioxide BUN Creatinine Glucose POC Glucose 123 H 114 H Lactic Acid Calcium Phosphorus Magnesium AST ALT Alkaline Phosphatase Lactate Dehydrogenase Troponin T C-Reactive Protein NT-Pro-B Natriuret Pep Total Protein Albumin LDL Cholesterol Direct Vitamin B12 Crossmatch 12/01/21 12/01/21 12/01/21 05:00 05:25 11:54 WBC RBC Hgb Hct MCV MCH MCHC RDW Plt Count Seg Neuts % (Manual) Lymphocytes % (Manual) Seg Neutrophils # Man Lymphocytes # (Manual) Monocytes # (Manual) PT INR D-Dimer ABG pH ABG pO2 ABG HCO3 ABG O2 Saturation ABG Base Excess ABG Hemoglobin Oxyhemoglobin Sodium 136 L Potassium Chloride Carbon Dioxide BUN 24 H Creatinine Glucose 117 H POC Glucose 108 H 107 H Lactic Acid Calcium 7.5 L Phosphorus Magnesium 1.60 L AST ALT Alkaline Phosphatase Lactate Dehydrogenase Troponin T C-Reactive Protein NT-Pro-B Natriuret Pep Total Protein Albumin LDL Cholesterol Direct Vitamin B12 Crossmatch 12/01/21 12/02/21 12/02/21 17:40 00:07 04:20 WBC RBC 2.92 L Hgb 7.7 L Hct 24.3 L MCV MCH 26 L MCHC RDW 20.5 H Plt Count Seg Neuts % (Manual) Lymphocytes % (Manual) Seg Neutrophils # Man Lymphocytes # (Manual) Monocytes # (Manual) PT INR D-Dimer ABG pH ABG pO2 ABG HCO3 ABG O2 Saturation ABG Base Excess ABG Hemoglobin Oxyhemoglobin Sodium Potassium Chloride Carbon Dioxide BUN Creatinine Glucose POC Glucose 123 H 110 H Lactic Acid Calcium Phosphorus Magnesium AST ALT Alkaline Phosphatase Lactate Dehydrogenase Troponin T C-Reactive Protein NT-Pro-B Natriuret Pep Total Protein Albumin LDL Cholesterol Direct Vitamin B12 Crossmatch 12/02/21 12/02/21 12/02/21 04:20 11:17 18:20 WBC RBC Hgb Hct MCV MCH MCHC RDW Plt Count Seg Neuts % (Manual) Lymphocytes % (Manual) Seg Neutrophils # Man Lymphocytes # (Manual) Monocytes # (Manual) PT INR D-Dimer ABG pH ABG pO2 ABG HCO3 ABG O2 Saturation ABG Base Excess ABG Hemoglobin Oxyhemoglobin Sodium 135 L Potassium Chloride Carbon Dioxide BUN 26 H Creatinine Glucose 121 H POC Glucose 117 H 113 H Lactic Acid Calcium 7.4 L Phosphorus Magnesium AST ALT Alkaline Phosphatase Lactate Dehydrogenase Troponin T C-Reactive Protein NT-Pro-B Natriuret Pep Total Protein Albumin LDL Cholesterol Direct Vitamin B12 Crossmatch 12/03/21 12/03/21 12/03/21 00:12 04:00 04:00 WBC RBC 2.99 L Hgb 7.8 L Hct 24.6 L MCV MCH 26 L MCHC RDW 20.2 H Plt Count Seg Neuts % (Manual) Lymphocytes % (Manual) Seg Neutrophils # Man Lymphocytes # (Manual) Monocytes # (Manual) PT INR D-Dimer ABG pH ABG pO2 ABG HCO3 ABG O2 Saturation ABG Base Excess ABG Hemoglobin Oxyhemoglobin Sodium 136 L Potassium Chloride Carbon Dioxide BUN 27 H Creatinine Glucose 133 H POC Glucose 121 H Lactic Acid Calcium 7.5 L Phosphorus Magnesium AST ALT Alkaline Phosphatase Lactate Dehydrogenase Troponin T C-Reactive Protein NT-Pro-B Natriuret Pep Total Protein Albumin LDL Cholesterol Direct Vitamin B12 Crossmatch 12/03/21 12/03/21 12/03/21 06:30 11:13 16:00 WBC RBC Hgb Hct MCV MCH MCHC RDW Plt Count Seg Neuts % (Manual) Lymphocytes % (Manual) Seg Neutrophils # Man Lymphocytes # (Manual) Monocytes # (Manual) PT INR D-Dimer ABG pH ABG pO2 ABG HCO3 ABG O2 Saturation ABG Base Excess ABG Hemoglobin Oxyhemoglobin Sodium Potassium Chloride Carbon Dioxide BUN Creatinine Glucose POC Glucose 129 H 125 H 125 H Lactic Acid Calcium Phosphorus Magnesium AST ALT Alkaline Phosphatase Lactate Dehydrogenase Troponin T C-Reactive Protein NT-Pro-B Natriuret Pep Total Protein Albumin LDL Cholesterol Direct Vitamin B12 Crossmatch 12/03/21 12/04/21 12/04/21 23:32 04:00 05:36 WBC RBC Hgb Hct MCV MCH MCHC RDW Plt Count Seg Neuts % (Manual) Lymphocytes % (Manual) Seg Neutrophils # Man Lymphocytes # (Manual) Monocytes # (Manual) PT INR D-Dimer ABG pH ABG pO2 ABG HCO3 ABG O2 Saturation ABG Base Excess ABG Hemoglobin Oxyhemoglobin Sodium Potassium 3.5 L Chloride Carbon Dioxide BUN 26 H Creatinine 0.5 L Glucose 151 H POC Glucose 133 H 142 H Lactic Acid Calcium 8.3 L Phosphorus Magnesium AST ALT Alkaline Phosphatase Lactate Dehydrogenase Troponin T C-Reactive Protein NT-Pro-B Natriuret Pep Total Protein Albumin LDL Cholesterol Direct Vitamin B12 Crossmatch 12/04/21 12/04/21 12/05/21 11:24 15:58 04:36 WBC RBC Hgb Hct MCV MCH MCHC RDW Plt Count Seg Neuts % (Manual) Lymphocytes % (Manual) Seg Neutrophils # Man Lymphocytes # (Manual) Monocytes # (Manual) PT INR D-Dimer ABG pH ABG pO2 ABG HCO3 ABG O2 Saturation ABG Base Excess ABG Hemoglobin Oxyhemoglobin Sodium Potassium Chloride Carbon Dioxide BUN 21 H Creatinine 0.5 L Glucose 119 H POC Glucose 130 H 111 H Lactic Acid Calcium 8.3 L Phosphorus Magnesium AST ALT Alkaline Phosphatase Lactate Dehydrogenase Troponin T C-Reactive Protein NT-Pro-B Natriuret Pep Total Protein Albumin LDL Cholesterol Direct Vitamin B12 Crossmatch 12/05/21 12/05/21 12/05/21 05:15 10:40 11:12 WBC RBC 2.98 L Hgb 8.1 L Hct 24.6 L MCV MCH 27 L MCHC RDW 20.8 H Plt Count Seg Neuts % (Manual) Lymphocytes % (Manual) Seg Neutrophils # Man Lymphocytes # (Manual) Monocytes # (Manual) PT INR D-Dimer ABG pH ABG pO2 ABG HCO3 ABG O2 Saturation ABG Base Excess ABG Hemoglobin Oxyhemoglobin Sodium Potassium Chloride Carbon Dioxide BUN Creatinine Glucose POC Glucose 107 H 110 H Lactic Acid Calcium Phosphorus Magnesium AST ALT Alkaline Phosphatase Lactate Dehydrogenase Troponin T C-Reactive Protein NT-Pro-B Natriuret Pep Total Protein Albumin LDL Cholesterol Direct Vitamin B12 Crossmatch 12/05/21 12/06/21 12/06/21 23:39 04:25 04:25 WBC RBC 2.95 L Hgb 7.9 L Hct 24.7 L MCV MCH 27 L MCHC RDW 20.9 H Plt Count Seg Neuts % (Manual) Lymphocytes % (Manual) Seg Neutrophils # Man Lymphocytes # (Manual) Monocytes # (Manual) PT INR D-Dimer ABG pH ABG pO2 ABG HCO3 ABG O2 Saturation ABG Base Excess ABG Hemoglobin Oxyhemoglobin Sodium Potassium Chloride Carbon Dioxide BUN 22 H Creatinine 0.5 L Glucose 136 H POC Glucose 118 H Lactic Acid Calcium 8.2 L Phosphorus Magnesium AST ALT Alkaline Phosphatase Lactate Dehydrogenase Troponin T C-Reactive Protein NT-Pro-B Natriuret Pep Total Protein Albumin LDL Cholesterol Direct Vitamin B12 Crossmatch 12/06/21 12/06/21 12/07/21 05:28 11:27 04:00 WBC RBC Hgb 7.2 L Hct 21.8 L MCV MCH MCHC RDW Plt Count Seg Neuts % (Manual) Lymphocytes % (Manual) Seg Neutrophils # Man Lymphocytes # (Manual) Monocytes # (Manual) PT INR D-Dimer ABG pH ABG pO2 ABG HCO3 ABG O2 Saturation ABG Base Excess ABG Hemoglobin Oxyhemoglobin Sodium Potassium Chloride Carbon Dioxide BUN Creatinine Glucose POC Glucose 142 H 126 H Lactic Acid Calcium Phosphorus Magnesium AST ALT Alkaline Phosphatase Lactate Dehydrogenase Troponin T C-Reactive Protein NT-Pro-B Natriuret Pep Total Protein Albumin LDL Cholesterol Direct Vitamin B12 Crossmatch 12/07/21 12/07/21 12/07/21 04:00 05:30 11:12 WBC RBC Hgb Hct MCV MCH MCHC RDW Plt Count Seg Neuts % (Manual) Lymphocytes % (Manual) Seg Neutrophils # Man Lymphocytes # (Manual) Monocytes # (Manual) PT INR D-Dimer ABG pH ABG pO2 ABG HCO3 ABG O2 Saturation ABG Base Excess ABG Hemoglobin Oxyhemoglobin Sodium Potassium Chloride Carbon Dioxide BUN 22 H Creatinine Glucose 119 H POC Glucose 121 H 124 H Lactic Acid Calcium 8.0 L Phosphorus Magnesium AST ALT Alkaline Phosphatase Lactate Dehydrogenase Troponin T C-Reactive Protein NT-Pro-B Natriuret Pep Total Protein Albumin LDL Cholesterol Direct Vitamin B12 Crossmatch 12/08/21 12/08/21 12/08/21 04:00 04:00 05:39 WBC RBC 2.81 L Hgb 7.7 L Hct 23.5 L MCV MCH MCHC RDW 21.2 H Plt Count Seg Neuts % (Manual) Lymphocytes % (Manual) Seg Neutrophils # Man Lymphocytes # (Manual) Monocytes # (Manual) PT INR D-Dimer ABG pH ABG pO2 ABG HCO3 ABG O2 Saturation ABG Base Excess ABG Hemoglobin Oxyhemoglobin Sodium 135 L Potassium Chloride Carbon Dioxide BUN 23 H Creatinine Glucose 109 H POC Glucose 112 H Lactic Acid Calcium Phosphorus Magnesium AST ALT Alkaline Phosphatase Lactate Dehydrogenase Troponin T C-Reactive Protein NT-Pro-B Natriuret Pep Total Protein Albumin LDL Cholesterol Direct Vitamin B12 Crossmatch 12/08/21 12/09/21 12/09/21 11:03 04:20 04:20 WBC RBC 2.67 L Hgb 7.6 L Hct 22.1 L MCV MCH MCHC RDW 20.8 H Plt Count Seg Neuts % (Manual) Lymphocytes % (Manual) Seg Neutrophils # Man Lymphocytes # (Manual) Monocytes # (Manual) PT INR D-Dimer ABG pH ABG pO2 ABG HCO3 ABG O2 Saturation ABG Base Excess ABG Hemoglobin Oxyhemoglobin Sodium 135 L Potassium Chloride 97.8 L Carbon Dioxide BUN 26 H Creatinine Glucose 119 H POC Glucose 108 H Lactic Acid Calcium 7.7 L Phosphorus Magnesium AST ALT Alkaline Phosphatase Lactate Dehydrogenase Troponin T C-Reactive Protein NT-Pro-B Natriuret Pep Total Protein Albumin LDL Cholesterol Direct Vitamin B12 Crossmatch 12/09/21 12/10/21 12/10/21 11:26 04:33 11:12 WBC RBC Hgb Hct MCV MCH MCHC RDW Plt Count Seg Neuts % (Manual) Lymphocytes % (Manual) Seg Neutrophils # Man Lymphocytes # (Manual) Monocytes # (Manual) PT INR D-Dimer ABG pH ABG pO2 ABG HCO3 ABG O2 Saturation ABG Base Excess ABG Hemoglobin Oxyhemoglobin Sodium 136 L Potassium Chloride Carbon Dioxide BUN 27 H Creatinine Glucose 117 H POC Glucose 110 H 117 H Lactic Acid Calcium 8.2 L Phosphorus Magnesium AST ALT Alkaline Phosphatase Lactate Dehydrogenase Troponin T C-Reactive Protein NT-Pro-B Natriuret Pep Total Protein Albumin LDL Cholesterol Direct Vitamin B12 Crossmatch 12/10/21 12/10/21 12/11/21 16:02 23:31 04:35 WBC RBC 2.57 L Hgb 7.0 L Hct 21.4 L MCV MCH 27 L MCHC RDW 21.1 H Plt Count Seg Neuts % (Manual) Lymphocytes % (Manual) Seg Neutrophils # Man Lymphocytes # (Manual) Monocytes # (Manual) PT INR D-Dimer ABG pH ABG pO2 ABG HCO3 ABG O2 Saturation ABG Base Excess ABG Hemoglobin Oxyhemoglobin Sodium Potassium Chloride Carbon Dioxide BUN Creatinine Glucose POC Glucose 137 H 111 H Lactic Acid Calcium Phosphorus Magnesium AST ALT Alkaline Phosphatase Lactate Dehydrogenase Troponin T C-Reactive Protein NT-Pro-B Natriuret Pep Total Protein Albumin LDL Cholesterol Direct Vitamin B12 Crossmatch 12/11/21 12/11/21 12/11/21 04:35 12:46 16:07 WBC RBC Hgb Hct MCV MCH MCHC RDW Plt Count Seg Neuts % (Manual) Lymphocytes % (Manual) Seg Neutrophils # Man Lymphocytes # (Manual) Monocytes # (Manual) PT INR D-Dimer ABG pH ABG pO2 ABG HCO3 ABG O2 Saturation ABG Base Excess ABG Hemoglobin Oxyhemoglobin Sodium 136 L Potassium Chloride Carbon Dioxide BUN 27 H Creatinine Glucose 112 H POC Glucose 115 H 111 H Lactic Acid Calcium 7.6 L Phosphorus Magnesium AST ALT Alkaline Phosphatase Lactate Dehydrogenase Troponin T C-Reactive Protein NT-Pro-B Natriuret Pep Total Protein Albumin LDL Cholesterol Direct Vitamin B12 Crossmatch 12/11/21 12/12/21 12/12/21 23:42 04:30 04:30 WBC RBC 2.60 L Hgb 7.1 L Hct 21.5 L MCV MCH 27 L MCHC RDW 20.3 H Plt Count Seg Neuts % (Manual) Lymphocytes % (Manual) Seg Neutrophils # Man Lymphocytes # (Manual) Monocytes # (Manual) PT INR D-Dimer ABG pH ABG pO2 ABG HCO3 ABG O2 Saturation ABG Base Excess ABG Hemoglobin Oxyhemoglobin Sodium 135 L Potassium Chloride 97.9 L Carbon Dioxide BUN 26 H Creatinine 0.5 L Glucose 138 H POC Glucose 115 H Lactic Acid Calcium 8.2 L Phosphorus Magnesium AST ALT Alkaline Phosphatase Lactate Dehydrogenase Troponin T C-Reactive Protein NT-Pro-B Natriuret Pep Total Protein Albumin LDL Cholesterol Direct Vitamin B12 Crossmatch 12/12/21 12/12/21 12/12/21 04:30 05:10 11:51 WBC RBC Hgb Hct MCV MCH MCHC RDW Plt Count Seg Neuts % (Manual) Lymphocytes % (Manual) Seg Neutrophils # Man Lymphocytes # (Manual) Monocytes # (Manual) PT INR D-Dimer ABG pH ABG pO2 ABG HCO3 ABG O2 Saturation ABG Base Excess ABG Hemoglobin Oxyhemoglobin Sodium Potassium Chloride Carbon Dioxide BUN Creatinine Glucose POC Glucose 119 H 119 H Lactic Acid Calcium Phosphorus Magnesium AST ALT Alkaline Phosphatase Lactate Dehydrogenase Troponin T C-Reactive Protein NT-Pro-B Natriuret Pep Total Protein Albumin LDL Cholesterol Direct Vitamin B12 Crossmatch See Detail 12/13/21 12/13/21 12/13/21 00:52 04:00 04:00 WBC RBC 2.73 L Hgb 7.4 L Hct 22.8 L MCV MCH 27 L MCHC RDW 20.5 H Plt Count Seg Neuts % (Manual) Lymphocytes % (Manual) Seg Neutrophils # Man Lymphocytes # (Manual) Monocytes # (Manual) PT INR D-Dimer ABG pH ABG pO2 ABG HCO3 ABG O2 Saturation ABG Base Excess ABG Hemoglobin Oxyhemoglobin Sodium 134 L Potassium Chloride 96.7 L Carbon Dioxide BUN 23 H Creatinine 0.5 L Glucose 131 H POC Glucose 131 H Lactic Acid Calcium 8.1 L Phosphorus Magnesium AST ALT Alkaline Phosphatase Lactate Dehydrogenase Troponin T C-Reactive Protein NT-Pro-B Natriuret Pep Total Protein Albumin LDL Cholesterol Direct Vitamin B12 Crossmatch 12/13/21 12/13/21 12/13/21 05:23 12:11 17:18 WBC RBC Hgb Hct MCV MCH MCHC RDW Plt Count Seg Neuts % (Manual) Lymphocytes % (Manual) Seg Neutrophils # Man Lymphocytes # (Manual) Monocytes # (Manual) PT INR D-Dimer ABG pH ABG pO2 ABG HCO3 ABG O2 Saturation ABG Base Excess ABG Hemoglobin Oxyhemoglobin Sodium Potassium Chloride Carbon Dioxide BUN Creatinine Glucose POC Glucose 121 H 143 H 148 H Lactic Acid Calcium Phosphorus Magnesium AST ALT Alkaline Phosphatase Lactate Dehydrogenase Troponin T C-Reactive Protein NT-Pro-B Natriuret Pep Total Protein Albumin LDL Cholesterol Direct Vitamin B12 Crossmatch 12/14/21 12/14/21 12/14/21 00:54 04:20 04:20 WBC RBC 2.39 L Hgb 6.5 L Hct 20.3 L MCV MCH 27 L MCHC RDW 20.3 H Plt Count Seg Neuts % (Manual) Lymphocytes % (Manual) Seg Neutrophils # Man Lymphocytes # (Manual) Monocytes # (Manual) PT INR D-Dimer ABG pH ABG pO2 ABG HCO3 ABG O2 Saturation ABG Base Excess ABG Hemoglobin Oxyhemoglobin Sodium 130 L Potassium Chloride 93.5 L Carbon Dioxide BUN 25 H Creatinine Glucose 123 H POC Glucose 123 H Lactic Acid Calcium 8.0 L Phosphorus Magnesium AST ALT Alkaline Phosphatase Lactate Dehydrogenase Troponin T C-Reactive Protein NT-Pro-B Natriuret Pep Total Protein Albumin LDL Cholesterol Direct Vitamin B12 Crossmatch 12/14/21 12/14/21 12/14/21 05:06 08:17 10:30 WBC RBC Hgb Hct MCV MCH MCHC RDW Plt Count Seg Neuts % (Manual) Lymphocytes % (Manual) Seg Neutrophils # Man Lymphocytes # (Manual) Monocytes # (Manual) PT INR D-Dimer ABG pH ABG pO2 ABG HCO3 ABG O2 Saturation ABG Base Excess ABG Hemoglobin Oxyhemoglobin Sodium Potassium Chloride Carbon Dioxide BUN Creatinine Glucose POC Glucose 131 H 119 H Lactic Acid Calcium Phosphorus Magnesium AST ALT Alkaline Phosphatase Lactate Dehydrogenase Troponin T C-Reactive Protein NT-Pro-B Natriuret Pep Total Protein Albumin LDL Cholesterol Direct Vitamin B12 Crossmatch See Detail 12/14/21 12/14/21 12:15 16:37 WBC RBC Hgb Hct MCV MCH MCHC RDW Plt Count Seg Neuts % (Manual) Lymphocytes % (Manual) Seg Neutrophils # Man Lymphocytes # (Manual) Monocytes # (Manual) PT INR D-Dimer ABG pH ABG pO2 ABG HCO3 ABG O2 Saturation ABG Base Excess ABG Hemoglobin Oxyhemoglobin Sodium Potassium Chloride Carbon Dioxide BUN Creatinine Glucose POC Glucose 147 H 141 H Lactic Acid Calcium Phosphorus Magnesium AST ALT Alkaline Phosphatase Lactate Dehydrogenase Troponin T C-Reactive Protein NT-Pro-B Natriuret Pep Total Protein Albumin LDL Cholesterol Direct Vitamin B12 Crossmatch Allied health notes reviewed: nursing
[2021-12-14] MEDS: traZODone 50 MG TAB PO SCH (21:51)
[2021-12-14] MEDS: PRAVASTATIN 20 MG TAB PO SCH (21:52)
[2021-12-14] MEDS: QUEtiapine 25 MG TAB PO SCH (21:54)
[2021-12-14] MEDS: MELATONIN 5 MG TAB PO SCH (21:56)
[2021-12-15] MEDS: LEVOTHYROXINE 125 MCG TAB PO SCH (05:35)
[2021-12-15] MEDS: ALPRAZolam 0.25 MG TAB PO PRN ×2 (05:36→21:31)
[2021-12-15 07:31] LABS: Hematocrit 27.5 % (30.3-42.9); Hemoglobin 8.8 gm/dl (10.1-14.3); Mean Corpuscular HGB Conc 32 % (30-34); Mean Corpuscular Volume 84 fl (79-97); Platelet Count 241 K/mm3 (140-440); Red Blood Count 3.27 M/mm3 (3.65-5.03)
[2021-12-15 07:50] LABS: Blood Urea Nitrogen 28 mg/dL (7-17); Calcium 8.2 mg/dL (8.4-10.2); Hemolysis Index 4
[2021-12-15 07:53] LABS: BUN/Creatinine Ratio 47
[2021-12-15] MEDS: SUCRALFATE 1 GM/10 ML ORAL LIQD PO SCH ×4 (08:30→21:31)
[2021-12-15] MEDS: MIDODRINE 5 MG TAB PO SCH ×3 (08:30→16:27)
[2021-12-15] MEDS: HYDROcodone/ACETAMINOPHEN 10-325MG TAB FEEDTUBE SCH ×3 (08:30→21:31)
--- NOTE | 2021-12-15 09:56 | Progress Note ---
<LONNIE MAURICE - Last Filed: 12/15/21 15:56> Assessment and Plan Assessment and plan: This is a 81-year-old female with known history of diabetes mellitus, hypertension, PPM, and arthritis admitted for sepsis and acute hypoxia respiratory failure 2/2 bilateral pneumonia requiring intubation and ventilatory support Hospital Course to date: 11/04/2021: Empiric therapy with iv levaquin/vancomycin. COVID PCR pending. Will consult ID. PCCM consulted, will follow recs. Hypotensive this AM, ordered bolus and fluids at 150 cc/hr. May require pressor support if bp does not improve. 11/05/2021: GBS on bcx +, currently on rocephin IV. Currently on bipap due to respiratory distress overnight. Worsening BL opacities on CXR. May be volume overload vs pneumonia. Unfortunately bp too low for lasix at this point. WIll continue levophed and bipap. Once able to tolerate, may do trial of albumin/lasi x. Call attempt made to [facility]ir[facility], no response. Will try again tomorrow to update. 11/06/2021: Decompensated overnight requiring intubation. CXR shows worsening interstitial infiltrates. Currenlty on dopamine, levophed, vasopressin. PICC line ordered. Advised RN to place gamble for I/O monitoring. Would benefit from diuresis but very volume overloaded. Prognosis guarded 11/08: Off sedation this am, remains unresponsive only grimace to pain. Hold all sedatives agents for now, patient is off pressors this am. Hypernatremia from today's lab- D5W X1bag, and low K repleted, repeat lab in the am. Severe constipation also noted from KUB, BR added. 11/09: Sudden SPO2 drop in the 60s this am. Patient was manually bagged and deep suctioned. Patient is currently stable on the vent, repeat CXR with no significant change. D/w CCM Mucomyst and brochodilator added. Patient mentation is unchanged, continue to hold off on sedative agents. Neurology consulted. 11/10: Acute DVT noted on bilateral lower extremity Doppler ultrasound therefore she was started on Lovenox treatment dose. Failed SBT. Hypernatremia and hyperchloremia noted, free water flush adjusted. 11/11: Patient noted to be febrile with increasing of the cytosis, UA/BC sent and CXR ordered. ID escalated antibiotics to cefepime. CXR demonstrated mucous plug, bedside bronchoscopy was performed and O ETT was changed over bougie from 6 cm to 7.5. Patient was noted to have a pneumothorax postprocedure and chest tube was placed. Family updated by [facility]. Free water flush increased and will add Jaswant supplementation. 11/12: Patient not noted to follow commands, hypernatremia worsen/persist, increasing free water flush, potassium and magnesium and phosphorus repleted. Hemoglobin noted to be 7.1/24.5 from 7.03/12 yesterday. We will continue to trend and monitor. Vent changes per [facility]. Repeat CXR showed no residual pneumo thorax. Consider waterseal tomorrow. Given persistent leukocytosis antibiotics escalated to cefepime per ID. 11/13: Remains on cefepime and vancomycin, vent changes per [facility]. Anemia noted and given 1 unit PRBC. And beta-charleen held in setting of Levophed drip infusing. Remains on fentanyl drip. 11/14: Patient put on CPAP trial by [facility], will continue chest tube until after extubation. Will rest on assist control. CT brain was cancelled by [facility] and reordered. 11/15: Patient removed chest tube overnight. Will obtain cxr. remains on low dose levo. CTH completed with no acute findings. RT to place on CPAP. 11/16: Hypernatremia/hyperchloremia noted on the increase of day water flushes. Anemia noted and ordered PRBC. asked RT to place on cpap but not done yet 11/17: Patient remains on the vent, awake and following commands. H&H stable s/p 2units PRBCs. GI on consult, no intervention at this time. Will continue protonix gtt and serial H&H Q6hrs. Keep patient NPO for now, D5w added for hypernatremia and NPO status. Plan for IVC filter placement today by Vascular. 11/18: Patient is s/p IVC filter. H&H continue to trend down, hbg 6.1 this am, 1 unit of PRBCs ordered. Plan for possible EGD today by GI. Keep patient NPO, continue PPI drip and serial H&H Q6hrs. Electrolytes repleted, repeat lab in the am 11/19: S/p EGD- larger duodenal ulcer noted, see operative note. GI recommendat ions noted also noted. H&H stable this am. Keep patient on protonix gtt for now. Will keep patient NPO, continue IVF and serial H&H for now. Electrolytes repleted, repeat labs in the am 2/3: Very agitated and restless this am, fentanyl gtt resumed. Patient remains on protonix gtt, H&H remains stable. Will switch protonix gtt to IV BID, continue carafate and okay to resume meds at this time. Will F/u with GI to see if TF can be resumed. Gamble was reinserted overnight for retention. Electrolytes repleted, repeat in the am. Plan for possible PST today for possible extubation per CCM. 11/21: Patient is now on seroquel and patient's home buspar resumed. Patient more calm this morning, fentanyl gtt is off. H&H remains stable and patient is tolerating TF. Patient had a runs of Vtach/PVCs this am, BB added per Cardio. Continue daily PS and wean trial for possible extubation. 11/22: Back on fentanyl gtt overnight , RASS o to -1, following commands. Patient failed PST this am due to increased work of breathing and low SPO2, ABG pending. Patient is also with worsen pitting edema, lasix is still on hold. Will discuss with cardio and CCM to possibly resume lasix. 11/23: MARIA DEL CARMEN overnight. Patient failed PST again this am. Per CCM plan for possible trach and PEG, hold off on IV lasix for now. General surgery consulted and family is aware of possible Trach and PEG. 11/24: Trach/PEG pending this week, continue SBT/SAT as tolerated. No acute events reported overnight. 11/25: Patient was n.p.o. overnight and will remain n.p.o. tonight for trach/PEG tomorrow morning. She failed to support trial again. KUB obtained due to distended belly. 11/26: Patient scheduled for tracheostomy and PEG tube placement today, has been n.p.o. since midnight. No acute events reported overnight. [facility] ordered rosalinda thicone scheduled. 11/27: No acute events reported overnight, patient received trach/PEG yesterday. Has been on feedings since last night. Still awaiting LTAC placement. 11/28: Patient magnesium repleted, repeat a.m. labs, SBT 11/29: Patient complains of chest pain but ECG obtained which showed no acute findings, ordered troponin. Patient failed CPAP yesterday and was trialed again today. levophed was restarted but will aggressively wean 11/30: Patient failed SBT. Continue supportive care. Started gabapentin today 12/01: MARIA DEL CARMEN overnight. Continue daily PST. Case management to arrange possible placement 12/02: Report of dark stools overnight, patient is hemodynamically stable. H&H stable, patient is on PPI. Will continue to trend H&H. Continue daily PST as tolerated. Awaiting LTAC vs SNF placement. 12/03: Hypotensive overnight, requiring low dose pressors. S/p X3 days of gentle diurese. Will continue to monitor, wean off pressors as tolerated for MAP of 65. Patient Failed PST yesterday, case management to follow up with insurance for possible LTAC placement. Continue daily PST as tolerated. PT eval and treat ordered. 12/04: Increased agitation and anxiety overnight, remains on buspar and seroquel, trazadone added to promote rest. Patient is now working with PT, keep patient engage and awake during the day so she can rest at night. No BM for over 5 days, BR was adjusted. Patient did not tolerate PST again yesterday, continue daily PST as tolerated. Continue to titrate pressor for MAP above 65. Pending possible LTAC placement, case management to arrange. 12/05: Still not getting much rest overnight, will add melatonin for sleep. Continue to engage patient during the day and promote rest at night. TF was held due to concern for possible bleeding, H&H remains stable and stools normal this am. Resume TF and continue PPI and carafate. Remains on low dose levophed, titrate as tolerated. Continue daily PST. Possible LTAC placement, awaiting approval. 12/06: MARIA DEL CARMEN overnight. Patient rested overnight. Continue supportive measures. Daily PST as tolerated. Awaiting possible LTAC placement 12/07: MARIA DEL CARMEN overnight. Plan for Tpiece trial today. Continue current supportive measures. Possible LTAC placement 12/08: Patient placed on pressure support trial again today, started on Xanax, no acute events reported overnight. Awaiting insurance approval for LTAC. 12/09: Levophed discontinued, LTAC transfer denied, started on midodrine and Lasix, ultrasound chest pending, started on Xanax 0.[address] De León updated family at bedside today. Started on Dilaudid every 3 hours as needed. 12/10: Patient placed on CPAP trial this morning, no acute events reported overnight. Will order ultrasound-guided thoracentesis. 12/11: Patient had a thoracentesis today, will decrease Xanax dosage and continue midodrine and diuresing. Patient failed CPAP today. 12/12: Patient not tolerate CPAP trials today, no acute events reported overnight 12/13: No acute events overnight. continue PSV trials as tolerated. Daughter updated at bedside 12/14: Patient noted to be anemic today, worsened gastric occult. Patient seems to be oversedated therefore Xanax changed to as needed and fentanyl patch discontinued. We will continue to monitor hyponatremia. 12/15: MARIA DEL CARMEN overnight. s/p 1unit of PRBCs, H&H stable this am, no signs of any active bleeding. Continue daily PST as tolerated. Awaiting placement. Assessment and Plan #Septic Shock POA #Bilateral Pneumonia #Bacteremia - Presented with fevers, leukocytosis, and hypotension - COVID PCR negative - 11/04 Bcult with 3/4 group B strep bacteremia - Repeat Bculture NGTD - 11/04 2D Echo with no evidence of vegetation - ID on consult, appreciate recommendations - Patient completed IV Abx course - Trend CBC #Acute Hypoxic Respiratory Failure 11/19 #Bilateral Pleural Effusion #Right Pneumothorax-resolved #Bilateral Pneumonia - COVID PCR negative - CXR shows Bilateral opacities, may be volume overloaded - CCM consulted, appreciate recommendations - Intubated on 11/06, ETT exchanged on 11/11 - 11/11 Bronchoscopy--Complicated by spontaneous pneumothorax - 11/11 S/p chest tube placement for right pneumothorax, removed by patient on 11/15 - 11/26 s/p Tracheostomy and PEGtube placement - 12/11 US thoracentesis due to moderate pleural effusion-1L removed - This am Vent Setting:A/C-30%,6,14,400 - On PO Lasix - Continue Nebs treatment - Continue daily PST as tolerated - VAP bundle addressed - Aspiration precaution HOB above 30 - PRN ABG and CXR per CCM - Continue SPO2 monitoring for SPO2 goal above 92% #CHF- EF 30-35% with PPM #Hypotension #Septic Kristian-resolved - SR on the monitor, HR 70-90s - 11/04 Echo-EF 30-35% - Now on Midodrine TID - Continue beta-charleen - Not on aspirin due to allergy - Statins resumed - Continue blood pressure monitor per protocol - Maintain MAP above 65 - Cardiology signed off #Acute Microcytic Anemia #Acute Blood Loss-resolved #Acute GI Bleed-resolved - s/p a total of 6units of PRBCs since admit - H&H [place] this am - 11/18 EGD- Large cratered ulcer in the posterior duodenal bulb about 2 cm in diameter. Visible vessel present. Mild active oozing from the ulcer bed. A total of 3 injections were performed around the ulcer for a total of 2.5 cc of dilute epinephrine and hemostasis was obtained.--> See full report - GI signed off - Stool occult still positive, no signs of any active bleeding - Continue PPI and Carafate - Continue to trend CBC - Transfuse for H&H less than 7 - Hold AC for now #Hyponatremia - Back on PO lasix - Strict intake and output - Continue to monitor and replace electrolytes as needed - Trend BMP,mag, & phosp #Urinary Retention - Gamble reinserted on 11/19 for retention - Keep gamble for now #Acute DVT in RLE - BLE doppler + Acute DVT in the right external iliac vein, common femoral vein, and superior aspect of femoral vein - Was on Therapeutic Lovenox- held to due GI Bleed - 11/17 s/p IVC filter placement by Vascular Surg #Agitation #Acute Encephalopathy-Resolved - Awake and following commands - Continue Buspar and seroquel - PRN Xanax for anxiety - CT head noted - Neurology consulted - PRN analgesia for pain management #Transaminitis/Shock Liver - Probably due to bacteria/spetic shock - Continue to Trend LFTs #Endo: h/o DM and hypothyroidism - Continue home Synthroid - Accu-Cheks every 6 - Avoid hypoglycemia The high probability of a clinically significant, sudden or life threatening deterioration of the [multi] system(s) required my full and direct attention, intervention and personal management. The aggregate critical care time was [60] minutes. This time is in addition to time spent performing reported procedures but includes the following: [x] Data Review and interpretation [x] Patient assessment and monitoring of vital signs [x] Documentation [x] Medication orders and management Disposition Plan: ICU Total Time Spent with Patient (Minutes): 60 History Interval history: Patient seen and examined at the bedside. Remains stable on the vent, AAO, following commands. MARIA DEL CARMEN overnight Hospitalist Physical - Constitutional Vitals: Temp Pulse Resp BP Pulse Ox 100.2 F H 75 13 79/41 99 12/15/21 07:22 12/15/21 09:00 12/15/21 09:00 12/15/21 09:00 12/15/21 09:00 General appearance: Present: no acute distress, other (Trah and on the vent) - EENT Eyes: Present: PERRL ENT: hearing intact - Neck Neck: Present: normal ROM - Respiratory Respiratory effort: normal Respiratory: bilateral: rhonchi - Cardiovascular Rhythm: regular Heart Sounds: Present: S1 & S2 - Extremities Extremities: no ischemia, pulses intact, pulses symmetrical Extremity abnormal: edema - Peripheral Assessment Left Upper Extremity Edema Type: Pitting Edema Degree: 3+ Capillary Refill: < 3 seconds Skin Temperature: Warm Generalized Edema Type: Non-pitting Edema Degree: 2+ Capillary Refill: < 3 seconds Skin Temperature: Warm Peripheral Pulses: within normal limits - Abdominal General gastrointestinal: soft, non-distended, normal bowel sounds - Integumentary Integumentary: Present: warm, dry - Psychiatric Psychiatric: appropriate mood/affect, cooperative - Neurologic Neurologic: moves all extremities - Allied Health Allied health notes reviewed: nursing, case management HEART Score - HEART Score Troponin: Troponin T 0.045 ng/mL (0.00-0.029) H 11/29/21 20:15 Results - Labs CBC & Chem 7: 12/15/21 07:00 12/15/21 07:00 Labs: Laboratory Last Values WBC 12.3 K/mm3 (4.5-11.0) H 12/15/21 07:00 RBC 3.27 M/mm3 (3.65-5.03) L 12/15/21 07:00 Hgb 8.8 gm/dl (10.1-14.3) L 12/15/21 07:00 Hct 27.5 % (30.3-42.9) L D 12/15/21 07:00 MCV 84 fl (79-97) 12/15/21 07:00 MCH 27 pg (28-32) L 12/15/21 07:00 MCHC 32 % (30-34) 12/15/21 07:00 RDW 19.0 % (13.2-15.2) H 12/15/21 07:00 Plt Count 241 K/mm3 (140-440) 12/15/21 07:00 Add Manual Diff Complete 11/16/21 15:25 Total Counted 100 11/16/21 15:25 Seg Neutrophils % Associate Data Scientist 11/06/21 15:50 Seg Neuts % (Manual) 87.0 % (40.0-70.0) H 11/16/21 15:25 Band Neutrophils % 0 % 11/16/21 15:25 Lymphocytes % (Manual) 8.0 % (13.4-35.0) L 11/16/21 15:25 Reactive Lymphs % (Man) 0 % 11/16/21 15:25 Monocytes % (Manual) 5.0 % (0.0-7.3) 11/16/21 15:25 Eosinophils % (Manual) 0 % (0.0-4.3) 11/16/21 15:25 Basophils % (Manual) 0 % (0.0-1.8) 11/16/21 15:25 Metamyelocytes % 0 % 11/16/21 15:25 Myelocytes % 0 % 11/16/21 15:25 Promyelocytes % 0 % 11/16/21 15:25 Blast Cells % 0 % 11/16/21 15:25 Nucleated RBC % Not Reportable 11/16/21 15:25 Seg Neutrophils # Man 15.0 K/mm3 (1.8-7.7) H 11/16/21 15:25 Band Neutrophils # 0.0 K/mm3 11/16/21 15:25 Lymphocytes # (Manual) 1.4 K/mm3 (1.2-5.4) 11/16/21 15:25 Abs React Lymphs (Man) 0.0 K/mm3 11/16/21 15:25 Monocytes # (Manual) 0.9 K/mm3 (0.0-0.8) H 11/16/21 15:25 Eosinophils # (Manual) 0.0 K/mm3 (0.0-0.4) 11/16/21 15:25 Basophils # (Manual) 0.0 K/mm3 (0.0-0.1) 11/16/21 15:25 Metamyelocytes # 0.0 K/mm3 11/16/21 15:25 Myelocytes # 0.0 K/mm3 11/16/21 15:25 Promyelocytes # 0.0 K/mm3 11/16/21 15:25 Blast Cells # 0.0 K/mm3 11/16/21 15:25 WBC Morphology Not Reportable 11/16/21 15:25 Hypersegmented Neuts Not Reportable 11/16/21 15:25 Hyposegmented Neuts Not Reportable 11/16/21 15:25 Hypogranular Neuts Not Reportable 11/16/21 15:25 Smudge Cells Not Reportable 11/16/21 15:25 Toxic Granulation Not Reportable 11/16/21 15:25 Toxic Vacuolation Not Reportable 11/16/21 15:25 Dohle Bodies Not Reportable 11/16/21 15:25 Pelger-Huet Anomaly Not Reportable 11/16/21 15:25 Irina Rods Not Reportable 11/16/21 15:25 Platelet Estimate Consistent w auto 11/16/21 15:25 Clumped Platelets Rare 11/16/21 15:25 Plt Clumps, EDTA Not Reportable 11/16/21 15:25 Large Platelets Not Reportable 11/16/21 15:25 Giant Platelets Not Reportable 11/16/21 15:25 Platelet Satelliting Not Reportable 11/16/21 15:25 Plt Morphology Comment Not Reportable 11/16/21 15:25 RBC Morphology Not Reportable 11/16/21 15:25 Dimorphic RBCs Not Reportable 11/16/21 15:25 Polychromasia Not Reportable 11/16/21 15:25 Hypochromasia 2+ 11/16/21 15:25 Poikilocytosis Not Reportable 11/16/21 15:25 Anisocytosis 2+ 11/16/21 15:25 Microcytosis Not Reportable 11/16/21 15:25 Macrocytosis Not Reportable 11/16/21 15:25 Spherocytes Not Reportable 11/16/21 15:25 Pappenheimer Bodies Not Reportable 11/16/21 15:25 Sickle Cells Not Reportable 11/16/21 15:25 Target Cells 2+ 11/16/21 15:25 Tear Drop Cells Not Reportable 11/16/21 15:25 Ovalocytes Not Reportable 11/16/21 15:25 Helmet Cells Not Reportable 11/16/21 15:25 [place] Bodies Not Reportable 11/16/21 15:25 [place] Rings Not Reportable 11/16/21 15:25 [place] Cells Not Reportable 11/16/21 15:25 Bite Cells Not Reportable 11/16/21 15:25 Crenated Cell Not Reportable 11/16/21 15:25 Elliptocytes Not Reportable 11/16/21 15:25 Acanthocytes (Spur) Not Reportable 11/16/21 15:25 Rouleaux Not Reportable 11/16/21 15:25 Hemoglobin C Crystals Not Reportable 11/16/21 15:25 Schistocytes Not Reportable 11/16/21 15:25 Malaria parasites Not Reportable 11/16/21 15:25 Godfrey Bodies Not Reportable 11/16/21 15:25 Hem Pathologist Commnt No 11/16/21 15:25 PT 16.9 Sec. (12.2-14.9) H 11/26/21 05:00 INR 1.24 (0.87-1.13) H 11/26/21 05:00 APTT 29.2 Sec. (24.2-36.6) 11/26/21 05:00 D-Dimer 2655.00 ng/mlDDU (0-234) H 11/11/21 04:28 ABG pH 7.449 pH Units (7.350-7.450) 11/21/21 16:00 ABG pCO2 32.1 mm Hg 11/21/21 16:00 ABG pO2 114.2 mm Hg (80.0-90.0) H 11/21/21 16:00 ABG HCO3 21.8 mmol/L (20.0-26.0) 11/21/21 16:00 ABG O2 Saturation 98.3 % (95.0-99.0) 11/21/21 16:00 ABG O2 Content 12.5 (0.0-44) 11/21/21 16:00 ABG Base Excess -1.7 mmol/L (-2.0-3.0) 11/21/21 16:00 ABG Hemoglobin 9.1 gm/dl (12.0-16.0) L 11/21/21 16:00 ABG Carboxyhemoglobin 1.9 % (0.0-5.0) 11/21/21 16:00 ABG Methemoglobin 0.5 % (0.0-1.5) 11/21/21 16:00 Oxyhemoglobin 96.0 % (95.0-99.0) 11/21/21 16:00 FiO2 30 % 11/21/21 16:00 Sodium 134 mmol/L (137-145) L 12/15/21 07:00 Potassium 3.7 mmol/L (3.6-5.0) 12/15/21 07:00 Chloride 95.7 mmol/L (98-107) L 12/15/21 07:00 Carbon Dioxide 27 mmol/L (22-30) 12/15/21 07:00 Anion Gap 15 mmol/L 12/15/21 07:00 BUN 28 mg/dL (7-17) H 12/15/21 07:00 Creatinine 0.6 mg/dL (0.6-1.2) 12/15/21 07:00 Estimated GFR > 60 ml/min 12/15/21 07:00 BUN/Creatinine Ratio 47 % 12/15/21 07:00 Glucose 129 mg/dL (65-100) H 12/15/21 07:00 POC Glucose 129 mg/dL (70-105) H 12/15/21 05:00 Lactic Acid 3.70 mmol/L (0.7-2.0) H* 11/03/21 22:32 Calcium 8.2 mg/dL (8.4-10.2) L 12/15/21 07:00 Phosphorus 3.50 mg/dL (2.5-4.5) 12/08/21 04:00 Magnesium 2.20 mg/dL (1.7-2.3) 12/08/21 04:00 Ferritin 52.6 ng/mL (10.0-200.0) 11/05/21 06:11 Total Bilirubin 0.50 mg/dL (0.1-1.2) 11/17/21 05:56 Direct Bilirubin < 0.2 mg/dL (0-0.2) 11/11/21 04:28 Indirect Bilirubin 0.1 mg/dL 11/11/21 04:28 AST 36 units/L (5-40) 11/17/21 05:56 ALT 47 units/L (7-56) 11/17/21 05:56 Alkaline Phosphatase 107 units/L (35-129) 11/17/21 05:56 Ammonia 42.0 umol/L (25-60) 11/10/21 14:08 Lactate Dehydrogenase 187 units/L (91-180) H 11/05/21 06:11 Troponin T 0.045 ng/mL (0.00-0.029) H 11/29/21 20:15 C-Reactive Protein 22.20 mg/dL (0.00-1.30) H 11/05/21 06:11 NT-Pro-B Natriuret Pep 7895 pg/mL (0-900) H 11/03/21 22:32 Total Protein 5.1 g/dL (6.3-8.2) L 11/17/21 05:56 Albumin 2.2 g/dL (3.9-5) L 11/17/21 05:56 Albumin/Globulin Ratio 0.8 % 11/17/21 05:56 Triglycerides 59 mg/dL (2-149) 11/29/21 20:15 Cholesterol 74 mg/dL (50-199) 11/29/21 20:15 LDL Cholesterol Direct 25 mg/dL (50-130) L 11/29/21 20:15 HDL Cholesterol 41 mg/dL (40-59) 11/29/21 20:15 Cholesterol/HDL Ratio 1.80 % 11/29/21 20:15 Vitamin B12 1823 pg/mL (211-911) H 11/10/21 14:08 TSH 1.510 mlU/mL (0.270-4.200) 11/10/21 14:08 Urine Color Yellow (Yellow) 11/11/21 09:00 Urine Turbidity Slightly-cloudy (Clear) 11/11/21 09:00 Urine pH 5.0 (5.0-7.0) 11/11/21 09:00 Ur Specific [place] 1.009 (1.003-1.030) 11/11/21 09:00 Urine Protein <15 mg/dl mg/dL (Negative) 11/11/21 09:00 Urine Glucose (UA) Neg mg/dL (Negative) 11/11/21 09:00 Urine Ketones Neg mg/dL (Negative) 11/11/21 09:00 Urine Blood Mod (Negative) 11/11/21 09:00 Urine Nitrite Neg (Negative) 11/11/21 09:00 Urine Bilirubin Neg (Negative) 11/11/21 09:00 Urine Urobilinogen < 2.0 mg/dL (<2.0) 11/11/21 09:00 Ur Leukocyte Esterase Neg (Negative) 11/11/21 09:00 Urine WBC (Auto) < 1.0 /HPF (0.0-6.0) 11/11/21 09:00 Urine RBC (Auto) < 1.0 /HPF (0.0-6.0) 11/11/21 09:00 Coronavirus (PCR) Negative (Negative) 11/10/21 08:30 Blood Type O POSITIVE 12/14/21 10:30 Antibody Screen Negative 12/14/21 10:30 Crossmatch See Detail 12/14/21 10:30 Microbiology: Microbiology 12/14/21 Unknown Stool Stool Occult Blood (KIRAN) - Final 12/14/21 11:00 Gatric Aspirate Gastric Occult Blood - Final Gamble/IV: Voiding Method Indwelling Catheter Active Medications - Current Medications Current Medications: Generic Name Dose Route Start Last Admin Trade Name Freq PRN Reason Stop Dose Admin Acetaminophen 650 mg 12/14/21 04:12 12/14/21 04:21 Acetaminophen 325 Mg/10.15 Ml Oral Liqd Unit Dose FEEDTUBE 650 mg Q6H PRN Administration Non Cardiac Pain or Temp>100.5 Hydrocodone Bitart/Acetaminophen 1 each 11/21/21 10:00 12/15/21 08:30 Hydrocodone/Acetaminophen 10-325mg Tab FEEDTUBE 1 each TID YOSSI Administration Alprazolam 0.25 mg 12/14/21 09:00 12/15/21 05:36 Alprazolam 0.25 Mg Tab PO 0.25 mg Q8H PRN Administration Agitation Lipase/Protease/Amylase 1 each 11/08/21 11:09 Lipase 10,500/Protease 25,000/Amylase 43,750 (Units) Dr Lema FEEDTUBE PRN PRN For Clogged Feeding Tube Buspirone HCl 7.5 mg 11/17/21 22:00 12/14/21 21:51 Buspirone 5 Mg Tab PO 7.5 mg BID YOSSI Administration Dextrose 0 ml 11/10/21 10:52 11/21/21 16:27 Dextrose 10% *Hypoglycemia IV 50 ml PRN PRN Administration Hypoglycemia Docusate Sodium 100 mg 12/04/21 11:00 12/14/21 21:57 Docusate Sodium 100 Mg/10 Ml Oral Liqd PO Not Given BID [facility] Furosemide 20 mg 12/09/21 10:00 12/14/21 10:03 Furosemide 20 Mg Tab PO 20 mg QDAY YOSSI Administration Gabapentin 100 mg 12/01/21 10:00 12/14/21 10:03 Gabapentin 100 Mg Cap PO 100 mg QDAY YOSSI Administration Hydromorphone HCl 0.5 mg 12/08/21 20:06 12/13/21 18:00 Hydromorphone 1 Mg/1 Ml Inj IV 0.5 mg Q3H PRN Administration Pain, Moderate (4-6) Hydrophilic Ointment 1 applic 11/06/21 04:02 Lip Therapy Vaseline TP Q2HR PRN Dry Lips Lansoprazole 30 mg 11/24/21 22:00 12/14/21 21:54 Lansoprazole 30 Mg Solutab FEEDTUBE 30 mg BID YOSSI Administration Levothyroxine Sodium 125 mcg 11/05/21 07:00 12/15/21 05:35 Levothyroxine 125 Mcg Tab PO 125 mcg DAILY@0600 YOSSI Administration Melatonin 5 mg 12/05/21 22:00 12/14/21 21:56 Melatonin 5 Mg Tab PO 5 mg QHS YOSSI Administration Metoprolol Tartrate 6.25 mg 12/08/21 22:52 12/14/21 21:55 Metoprolol Tartrate 25 Mg Tab PO 6.25 mg BID YOSSI Administration Midodrine 10 mg 12/09/21 08:00 12/15/21 08:30 Midodrine 5 Mg Tab PO 10 mg TID@0800,1200,1600 YOSSI Administration Multi-Ingred Cream/Lotion/Oil/Oint 1 applic 11/06/21 04:02 Mineral Oil/Petrolatum, White Ophth Oint 3.5 Gm OU Q4HR PRN Dry Eye(s) Nitroglycerin 0.4 mg 11/30/21 11:36 Nitroglycerin 0.4 Mg Tab Subl SL .Q5MIN PRN Chest Pain Ondansetron HCl 4 mg 12/05/21 10:00 12/08/21 05:17 Ondansetron 4 Mg/2 Ml Inj IV 4 mg Q8H PRN Administration Nausea And Vomiting Polyethylene Glycol 17 gm 12/02/21 10:00 12/14/21 10:04 Polyethylene Glycol 3350 17 Gm Powder PO Not Given QDAY YOSSI Pravastatin Sodium 20 mg 11/18/21 22:00 12/14/21 21:52 Pravastatin 20 Mg Tab PO 20 mg QHS YOSSI Administration Quetiapine Fumarate 50 mg 12/01/21 22:00 12/14/21 21:54 Quetiapine 25 Mg Tab PO 50 mg QHS YOSSI Administration Senna 17.6 mg 11/08/21 22:00 12/14/21 21:57 Sennosides Oral Liqd 8.8 Mg/5 Ml Oral Liqd PO Not Given Q12HR YOSSI Simple Syrup 15 ml 11/08/21 11:09 Simple Syrup 15 Ml FEEDTUBE PRN PRN Hypoglycemia Simple Syrup 30 ml 11/08/21 11:09 Simple Syrup 15 Ml FEEDTUBE PRN PRN Hypoglycemia Sodium Bicarbonate 325 mg 11/08/21 11:09 Sodium Bicarbonate 325 Mg Tab FEEDTUBE PRN PRN For Clogged Feeding Tube Sodium Chloride 10 ml 11/04/21 10:00 12/14/21 21:57 Sodium Chloride 0.9% 10 Ml Flush Syringe IV 10 ml BID YOSSI Administration Sodium Chloride 10 ml 11/04/21 02:03 Sodium Chloride 0.9% 10 Ml Flush Syringe IV PRN PRN LINE FLUSH Sucralfate 1 gm 11/18/21 16:30 12/15/21 08:30 Sucralfate 1 Gm/10 Ml Oral Liqd PO 1 gm ACHS YOSSI Administration Trazodone HCl 50 mg 12/04/21 22:00 12/14/21 21:51 Trazodone 50 Mg Tab PO 50 mg QHS YOSSI Administration Nutrition/Malnutrition Assess - Dietary Evaluation Nutrition/Malnutrition Findings: Nutrition Notes Start: 11/04/21 17:16 Freq: Status: Active Protocol: Document 12/08/21 10:17 YOVANI (Rec: 12/08/21 10:27 IDARMEN [id number]) Nutrition Notes Initial or Follow up Reassessment Current Diagnosis Diabetes,Hypertension,Heart Failure,Respiratory Failure Other Pertinent Diagnosis Bilat pneu, acute GIB Current Diet TF - Vital AF 1.2 at 40ml/hr Labs/Tests Na 135 BUN 23 H/H 7.7/23.5 Pertinent Medications Colace, Miralax Height 5 ft Weight 62.4 kg [place] Body Weight (kg) 45.45 BMI 26.9 Weight Status Appropriate Subjective/Other Information Trach and PEG placed on 11/26. Pt remains on vent support. BM x 1 on yesterday; previous report of no BM x 5 days on . Pt tolerating TF. Percent of energy/protein needs met: 95% energy 96% pro Burn Absent Trauma Absent #1 Nutrition Diagnosis Inadequate oral intake Diagnosis Progress(for reassessment Continues documentation) Is patient on ventilator? Yes Is Patient Ambulatory and/or Out of Bed No REE-([place]-confined to bed) 1207.824 [facility] Additional Notes Pro needs 1.2-2g/k-125g/ day Fluid needs 1ml/kcal Nutrition Intervention Nutrition Support: Continue Vital AF 1.2 at 40ml/ hr. Provide 65ml water flush q4h. Kcal 1,152 Protein (gm) 72 Carbohydrates (gm) 106 Fat (gm) 52 Fluid (mL) 779 Fiber (gm) 5 Goal #1 TF tolerance Goal #2 TF to meet at least 75% energy and pro needs Follow-Up By: 12/15/21 Additional Comments F/U: stable TF, vent status, wt <LEAH ALFONSO E - Last Filed: 12/16/21 07:15> Assessment and Plan Assessment and plan: I saw and evaluated the patient. I agree with the findings and the plan of care as documented in the Nurse Practitioner's~note, with the following corrections and additions. Hospitalist Physical - Constitutional Vitals: Temp Pulse Resp BP Pulse Ox 99.7 F H 90 19 159/75 97 12/16/21 04:00 12/16/21 06:31 12/16/21 06:31 12/16/21 06:31 12/16/21 06:31 HEART Score - HEART Score Troponin: Troponin T 0.045 ng/mL (0.00-0.029) H 11/29/21 20:15 Results - Labs CBC & Chem 7: 12/15/21 07:00 12/15/21 07:00 Labs: Laboratory Last Values WBC 12.3 K/mm3 (4.5-11.0) H 12/15/21 07:00 RBC 3.27 M/mm3 (3.65-5.03) L 12/15/21 07:00 Hgb 8.8 gm/dl (10.1-14.3) L 12/15/21 07:00 Hct 27.5 % (30.3-42.9) L D 12/15/21 07:00 MCV 84 fl (79-97) 12/15/21 07:00 MCH 27 pg (28-32) L 12/15/21 07:00 MCHC 32 % (30-34) 12/15/21 07:00 RDW 19.0 % (13.2-15.2) H 12/15/21 07:00 Plt Count 241 K/mm3 (140-440) 12/15/21 07:00 Add Manual Diff Complete 11/16/21 15:25 Total Counted 100 11/16/21 15:25 Seg Neutrophils % Associate Data Scientist 11/06/21 15:50 Seg Neuts % (Manual) 87.0 % (40.0-70.0) H 11/16/21 15:25 Band Neutrophils % 0 % 11/16/21 15:25 Lymphocytes % (Manual) 8.0 % (13.4-35.0) L 11/16/21 15:25 Reactive Lymphs % (Man) 0 % 11/16/21 15:25 Monocytes % (Manual) 5.0 % (0.0-7.3) 11/16/21 15:25 Eosinophils % (Manual) 0 % (0.0-4.3) 11/16/21 15:25 Basophils % (Manual) 0 % (0.0-1.8) 11/16/21 15:25 Metamyelocytes % 0 % 11/16/21 15:25 Myelocytes % 0 % 11/16/21 15:25 Promyelocytes % 0 % 11/16/21 15:25 Blast Cells % 0 % 11/16/21 15:25 Nucleated RBC % Not Reportable 11/16/21 15:25 Seg Neutrophils # Man 15.0 K/mm3 (1.8-7.7) H 11/16/21 15:25 Band Neutrophils # 0.0 K/mm3 11/16/21 15:25 Lymphocytes # (Manual) 1.4 K/mm3 (1.2-5.4) 11/16/21 15:25 Abs React Lymphs (Man) 0.0 K/mm3 11/16/21 15:25 Monocytes # (Manual) 0.9 K/mm3 (0.0-0.8) H 11/16/21 15:25 Eosinophils # (Manual) 0.0 K/mm3 (0.0-0.4) 11/16/21 15:25 Basophils # (Manual) 0.0 K/mm3 (0.0-0.1) 11/16/21 15:25 Metamyelocytes # 0.0 K/mm3 11/16/21 15:25 Myelocytes # 0.0 K/mm3 11/16/21 15:25 Promyelocytes # 0.0 K/mm3 11/16/21 15:25 Blast Cells # 0.0 K/mm3 11/16/21 15:25 WBC Morphology Not Reportable 11/16/21 15:25 Hypersegmented Neuts Not Reportable 11/16/21 15:25 Hyposegmented Neuts Not Reportable 11/16/21 15:25 Hypogranular Neuts Not Reportable 11/16/21 15:25 Smudge Cells Not Reportable 11/16/21 15:25 Toxic Granulation Not Reportable 11/16/21 15:25 Toxic Vacuolation Not Reportable 11/16/21 15:25 Dohle Bodies Not Reportable 11/16/21 15:25 Pelger-Huet Anomaly Not Reportable 11/16/21 15:25 Irina Rods Not Reportable 11/16/21 15:25 Platelet Estimate Consistent w auto 11/16/21 15:25 Clumped Platelets Rare 11/16/21 15:25 Plt Clumps, EDTA Not Reportable 11/16/21 15:25 Large Platelets Not Reportable 11/16/21 15:25 Giant Platelets Not Reportable 11/16/21 15:25 Platelet Satelliting Not Reportable 11/16/21 15:25 Plt Morphology Comment Not Reportable 11/16/21 15:25 RBC Morphology Not Reportable 11/16/21 15:25 Dimorphic RBCs Not Reportable 11/16/21 15:25 Polychromasia Not Reportable 11/16/21 15:25 Hypochromasia 2+ 11/16/21 15:25 Poikilocytosis Not Reportable 11/16/21 15:25 Anisocytosis 2+ 11/16/21 15:25 Microcytosis Not Reportable 11/16/21 15:25 Macrocytosis Not Reportable 11/16/21 15:25 Spherocytes Not Reportable 11/16/21 15:25 Pappenheimer Bodies Not Reportable 11/16/21 15:25 Sickle Cells Not Reportable 11/16/21 15:25 Target Cells 2+ 11/16/21 15:25 Tear Drop Cells Not Reportable 11/16/21 15:25 Ovalocytes Not Reportable 11/16/21 15:25 Helmet Cells Not Reportable 11/16/21 15:25 [place] Bodies Not Reportable 11/16/21 15:25 [place] Rings Not Reportable 11/16/21 15:25 [place] Cells Not Reportable 11/16/21 15:25 Bite Cells Not Reportable 11/16/21 15:25 Crenated Cell Not Reportable 11/16/21 15:25 Elliptocytes Not Reportable 11/16/21 15:25 Acanthocytes (Spur) Not Reportable 11/16/21 15:25 Rouleaux Not Reportable 11/16/21 15:25 Hemoglobin C Crystals Not Reportable 11/16/21 15:25 Schistocytes Not Reportable 11/16/21 15:25 Malaria parasites Not Reportable 11/16/21 15:25 [place] Bodies Not Reportable 11/16/21 15:25 Hem Pathologist Commnt No 11/16/21 15:25 PT 16.9 Sec. (12.2-14.9) H 11/26/21 05:00 INR 1.24 (0.87-1.13) H 11/26/21 05:00 APTT 29.2 Sec. (24.2-36.6) 11/26/21 05:00 D-Dimer 2655.00 ng/mlDDU (0-234) H 11/11/21 04:28 ABG pH 7.449 pH Units (7.350-7.450) 11/21/21 16:00 ABG pCO2 32.1 mm Hg 11/21/21 16:00 ABG pO2 114.2 mm Hg (80.0-90.0) H 11/21/21 16:00 ABG HCO3 21.8 mmol/L (20.0-26.0) 11/21/21 16:00 ABG O2 Saturation 98.3 % (95.0-99.0) 11/21/21 16:00 ABG O2 Content 12.5 (0.0-44) 11/21/21 16:00 ABG Base Excess -1.7 mmol/L (-2.0-3.0) 11/21/21 16:00 ABG Hemoglobin 9.1 gm/dl (12.0-16.0) L 11/21/21 16:00 ABG Carboxyhemoglobin 1.9 % (0.0-5.0) 11/21/21 16:00 ABG Methemoglobin 0.5 % (0.0-1.5) 11/21/21 16:00 Oxyhemoglobin 96.0 % (95.0-99.0) 11/21/21 16:00 FiO2 30 % 11/21/21 16:00 Sodium 134 mmol/L (137-145) L 12/15/21 07:00 Potassium 3.7 mmol/L (3.6-5.0) 12/15/21 07:00 Chloride 95.7 mmol/L (98-107) L 12/15/21 07:00 Carbon Dioxide 27 mmol/L (22-30) 12/15/21 07:00 Anion Gap 15 mmol/L 12/15/21 07:00 BUN 28 mg/dL (7-17) H 12/15/21 07:00 Creatinine 0.6 mg/dL (0.6-1.2) 12/15/21 07:00 Estimated GFR > 60 ml/min 12/15/21 07:00 BUN/Creatinine Ratio 47 % 12/15/21 07:00 Glucose 129 mg/dL (65-100) H 12/15/21 07:00 POC Glucose 121 mg/dL (70-105) H 12/16/21 05:24 Lactic Acid 3.70 mmol/L (0.7-2.0) H* 11/03/21 22:32 Calcium 8.2 mg/dL (8.4-10.2) L 12/15/21 07:00 Phosphorus 3.50 mg/dL (2.5-4.5) 12/08/21 04:00 Magnesium 2.20 mg/dL (1.7-2.3) 12/08/21 04:00 Ferritin 52.6 ng/mL (10.0-200.0) 11/05/21 06:11 Total Bilirubin 0.50 mg/dL (0.1-1.2) 11/17/21 05:56 Direct Bilirubin < 0.2 mg/dL (0-0.2) 11/11/21 04:28 Indirect Bilirubin 0.1 mg/dL 11/11/21 04:28 AST 36 units/L (5-40) 11/17/21 05:56 ALT 47 units/L (7-56) 11/17/21 05:56 Alkaline Phosphatase 107 units/L (35-129) 11/17/21 05:56 Ammonia 42.0 umol/L (25-60) 11/10/21 14:08 Lactate Dehydrogenase 187 units/L (91-180) H 11/05/21 06:11 Troponin T 0.045 ng/mL (0.00-0.029) H 11/29/21 20:15 C-Reactive Protein 22.20 mg/dL (0.00-1.30) H 11/05/21 06:11 NT-Pro-B Natriuret Pep 7895 pg/mL (0-900) H 11/03/21 22:32 Total Protein 5.1 g/dL (6.3-8.2) L 11/17/21 05:56 Albumin 2.2 g/dL (3.9-5) L 11/17/21 05:56 Albumin/Globulin Ratio 0.8 % 11/17/21 05:56 Triglycerides 59 mg/dL (2-149) 11/29/21 20:15 Cholesterol 74 mg/dL (50-199) 11/29/21 20:15 LDL Cholesterol Direct 25 mg/dL (50-130) L 11/29/21 20:15 HDL Cholesterol 41 mg/dL (40-59) 11/29/21 20:15 Cholesterol/HDL Ratio 1.80 % 11/29/21 20:15 Vitamin B12 1823 pg/mL (211-911) H 11/10/21 14:08 TSH 1.510 mlU/mL (0.270-4.200) 11/10/21 14:08 Urine Color Yellow (Yellow) 11/11/21 09:00 Urine Turbidity Slightly-cloudy (Clear) 11/11/21 09:00 Urine pH 5.0 (5.0-7.0) 11/11/21 09:00 Ur Specific [place] 1.009 (1.003-1.030) 11/11/21 09:00 Urine Protein <15 mg/dl mg/dL (Negative) 11/11/21 09:00 Urine Glucose (UA) Neg mg/dL (Negative) 11/11/21 09:00 Urine Ketones Neg mg/dL (Negative) 11/11/21 09:00 Urine Blood Mod (Negative) 11/11/21 09:00 Urine Nitrite Neg (Negative) 11/11/21 09:00 Urine Bilirubin Neg (Negative) 11/11/21 09:00 Urine Urobilinogen < 2.0 mg/dL (<2.0) 11/11/21 09:00 Ur Leukocyte Esterase Neg (Negative) 11/11/21 09:00 Urine WBC (Auto) < 1.0 /HPF (0.0-6.0) 11/11/21 09:00 Urine RBC (Auto) < 1.0 /HPF (0.0-6.0) 11/11/21 09:00 Coronavirus (PCR) Negative (Negative) 11/10/21 08:30 Blood Type O POSITIVE 12/14/21 10:30 Antibody Screen Negative 12/14/21 10:30 Crossmatch See Detail 12/14/21 10:30 Microbiology: Microbiology 12/14/21 Unknown Stool Stool Occult Blood (KIRAN) - Final Gamble/IV: Voiding Method Indwelling Catheter Active Medications - Current Medications Current Medications: Generic Name Dose Route Start Last Admin Trade Name Freq PRN Reason Stop Dose Admin Acetaminophen 650 mg 12/14/21 04:12 12/14/21 04:21 Acetaminophen 325 Mg/10.15 Ml Oral Liqd Unit Dose FEEDTUBE 650 mg Q6H PRN Administration Non Cardiac Pain or Temp>100.5 Hydrocodone Bitart/Acetaminophen 1 each 11/21/21 10:00 12/15/21 21:31 Hydrocodone/Acetaminophen 10-325mg Tab FEEDTUBE 1 each TID YOSSI Administration Alprazolam 0.25 mg 12/14/21 09:00 12/15/21 21:31 Alprazolam 0.25 Mg Tab PO 0.25 mg Q8H PRN Administration Agitation Lipase/Protease/Amylase 1 each 11/08/21 11:09 Lipase 10,500/Protease 25,000/Amylase 43,750 (Units) Dr Lema FEEDTUBE PRN PRN For Clogged Feeding Tube Buspirone HCl 7.5 mg 11/17/21 22:00 12/15/21 21:30 Buspirone 5 Mg Tab PO 7.5 mg BID YOSSI Administration Dextrose 0 ml 11/10/21 10:52 11/21/21 16:27 Dextrose 10% *Hypoglycemia IV 50 ml PRN PRN Administration Hypoglycemia Docusate Sodium 100 mg 12/04/21 11:00 12/15/21 21:30 Docusate Sodium 100 Mg/10 Ml Oral Liqd PO 100 mg BID YOSSI Administration Furosemide 20 mg 12/09/21 10:00 12/15/21 10:06 Furosemide 20 Mg Tab PO 20 mg QDAY YOSSI Administration Gabapentin 100 mg 12/01/21 10:00 12/15/21 10:06 Gabapentin 100 Mg Cap PO 100 mg QDAY YOSSI Administration Hydromorphone HCl 0.5 mg 12/08/21 20:06 12/13/21 18:00 Hydromorphone 1 Mg/1 Ml Inj IV 0.5 mg Q3H PRN Administration Pain, Moderate (4-6) Hydrophilic Ointment 1 applic 11/06/21 04:02 Lip Therapy Vaseline TP Q2HR PRN Dry Lips Lansoprazole 30 mg 11/24/21 22:00 12/15/21 21:31 Lansoprazole 30 Mg Solutab FEEDTUBE 30 mg BID YOSSI Administration Levothyroxine Sodium 125 mcg 11/05/21 07:00 12/16/21 06:39 Levothyroxine 125 Mcg Tab PO 125 mcg DAILY@0600 YOSSI Administration Melatonin 5 mg 12/05/21 22:00 12/15/21 21:31 Melatonin 5 Mg Tab PO 5 mg QHS YOSSI Administration Metoprolol Tartrate 6.25 mg 12/08/21 22:52 12/15/21 21:30 Metoprolol Tartrate 25 Mg Tab PO 6.25 mg BID YOSSI Administration Midodrine 10 mg 12/09/21 08:00 12/15/21 16:27 Midodrine 5 Mg Tab PO 10 mg TID@0800,1200,1600 YOSSI Administration Multi-Ingred Cream/Lotion/Oil/Oint 1 applic 11/06/21 04:02 Mineral Oil/Petrolatum, White Ophth Oint 3.5 Gm OU Q4HR PRN Dry Eye(s) Nitroglycerin 0.4 mg 11/30/21 11:36 Nitroglycerin 0.4 Mg Tab Subl SL .Q5MIN PRN Chest Pain Ondansetron HCl 4 mg 12/05/21 10:00 12/08/21 05:17 Ondansetron 4 Mg/2 Ml Inj IV 4 mg Q8H PRN Administration Nausea And Vomiting Polyethylene Glycol 17 gm 12/02/21 10:00 12/15/21 10:07 Polyethylene Glycol 3350 17 Gm Powder PO Not Given QDAY YOSSI Pravastatin Sodium 20 mg 11/18/21 22:00 12/15/21 21:32 Pravastatin 20 Mg Tab PO 20 mg QHS YOSSI Administration Quetiapine Fumarate 50 mg 12/01/21 22:00 12/15/21 21:30 Quetiapine 25 Mg Tab PO 50 mg QHS YOSSI Administration Senna 17.6 mg 11/08/21 22:00 12/15/21 21:31 Sennosides Oral Liqd 8.8 Mg/5 Ml Oral Liqd PO 17.6 mg Q12HR YOSSI Administration Simple Syrup 15 ml 11/08/21 11:09 Simple Syrup 15 Ml FEEDTUBE PRN PRN Hypoglycemia Simple Syrup 30 ml 11/08/21 11:09 Simple Syrup 15 Ml FEEDTUBE PRN PRN Hypoglycemia Sodium Bicarbonate 325 mg 11/08/21 11:09 Sodium Bicarbonate 325 Mg Tab FEEDTUBE PRN PRN For Clogged Feeding Tube Sodium Chloride 10 ml 11/04/21 10:00 12/15/21 21:32 Sodium Chloride 0.9% 10 Ml Flush Syringe IV 10 ml BID YOSSI Administration Sodium Chloride 10 ml 11/04/21 02:03 Sodium Chloride 0.9% 10 Ml Flush Syringe IV PRN PRN LINE FLUSH Sucralfate 1 gm 11/18/21 16:30 12/16/21 06:39 Sucralfate 1 Gm/10 Ml Oral Liqd PO 1 gm ACHS YOSSI Administration Trazodone HCl 50 mg 12/04/21 22:00 12/15/21 21:30 Trazodone 50 Mg Tab PO 50 mg QHS YOSSI Administration Nutrition/Malnutrition Assess - Dietary Evaluation Nutrition/Malnutrition Findings: Nutrition Notes Start: 11/04/21 17 :16 Freq: Status: Active Protocol: Document 12/15/21 15:12 ISABELL (Rec: 12/15/21 15:41 ISABELL [id number]) Nutrition Notes Initial or Follow up Reassessment Current Diagnosis Diabetes,Sepsis,Hypertension, Heart Failure,Respiratory Failure Other Pertinent Diagnosis Bilateral Pneumonia, L-Pleural Effusion, Pulmonary HTN, HFrEF, GI Bleed. Current Diet TF-Vital AF 1.2 @ 40 ml/hr ( since 11/30) Labs/Tests 12/15: Na 134, Cl 95.7, BUN 28 , Glu 129, Ca 8.2. Pertinent Medications 12/15: Levothyroxine, others nutritionally unremarkable. Height 5 ft Weight 62.4 kg [place] Body Weight (kg) 45.45 BMI 26.9 Weight change and time frame No body weight change reported in 1 month. Weight Status Appropriate Subjective/Other Information RD consult for routine TF tolerance. TF continues as prescribed, well tolerated, no gastric residues, according to RN notes. Pt continues on Mechanical Ventilation. Pt is having difficulties for discharge, due to [facility] refusing transfer at the time. Percent of energy/protein needs met: Prescribed Vital AF 1.2 Tamir @ 40 ml/hr provides for energy/ protein needs (1,150 Kcal/72 g ) during LOS, 95% Kcal; 96% AA . Burn Absent Trauma Absent GI Symptoms Other Difficulty In Swallowing,Chewing Skin Integrity/Comment Lower Extremities Pressure Ulcer. Current % PO Other Minimum of two criteria No #1 Nutrition Diagnosis Inadequate oral intake Diagnosis Progress(for reassessment Continues documentation) Is patient on ventilator? Yes Is Patient Ambulatory and/or Out of Bed No REE-([facility]-confined to bed) 3407.806 Calculation Used for Recommendations [facility] Additional Notes Protein: 1.2-2 g/Kg; 75-125 g/ day. Fluids: 1 ml/Kcal, or as per MD. Nutrition Intervention Nutrition Support: Continue Vital AF 1.2 Tamir @ 40 ml/hr. Flush: 65 ml water Q 4 hr, or as per MD. Kcal 1,150 Protein (gm) 72 Carbohydrates (gm) 106 Fat (gm) 52 Fluid (mL) 779 Fiber (gm) 5 % RDI: 95% Kcal; 96% AA. Goal #1 Provide at least 75% of energy /protein needs through Enteral Feeding during LOS. Goal #2 Maintain body weight within +/ -3% of admission body weight during LOS. Follow-Up By: 12/22/21 Additional Comments Continue monitoring TF tolerance and BM.
[2021-12-15] MEDS: LANSOPRAZOLE 30 MG SOLUTAB FEEDTUBE SCH ×2 (10:06→21:31)
[2021-12-15] MEDS: busPIRone 5 MG TAB PO SCH ×2 (10:06→21:30)
[2021-12-15] MEDS: METOPROLOL TARTRATE 25 MG TAB PO SCH ×2 (10:06→21:30)
[2021-12-15] MEDS: FUROSEMIDE 20 MG TAB PO SCH (10:06)
[2021-12-15] MEDS: GABAPENTIN 100 MG CAP PO SCH (10:06)
[2021-12-15] MEDS: DOCUSATE SODIUM 100 MG/10 ML ORAL LIQD PO SCH ×2 (10:06→21:30)
[2021-12-15] MEDS: POLYETHYLENE GLYCOL 3350 17 GM POWDER PO SCH (10:07)
[2021-12-15] MEDS: SENNOSIDES ORAL LIQD 8.8 MG/5 ML ORAL LIQD PO SCH ×2 (10:07→21:31)
--- NOTE | 2021-12-15 12:43 | Progress Note ---
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 (Called insurance company for peer discussion and her LTAC transfer was denied due to "hemodynamic instability" despite my explaining that she has only intermittently required 2 nicole's/min of Levophed and also that she can be easily managed at the LTAC which also treats critically ill patients) - reduced p-supp to 14 cm H2O - received 1 unit PRBC transfusion over the weekend foor HB of 6.5 - continue daily SAT and SBT assessment as tolerated - LTAC evaluation ongoing - no new issues otherwise, continue care as below; - continue gentle diuresis - continue Midodrine - prn Levophed for target MAP > 65 mmHg - continue to wean supplemental oxygen for target O2 sat's > 90% acutely - VAP bundle addressed - continue lung protective strategies - continue bronchodilators with routine trach care and pulmonary hygiene per RT - wean per pulmonary driven protocols otherwise - avoid nephrotoxins, renally dose all medications - continue accuchecks with glycemic control per SSI (While critically ill target blood glucose of 140-180 mg/dL; avoid hypoglycemia) - sedation prn for target RASS 0 to -1 - antibiotics per ID recommendations - continue to avoid benzodiazepine's, reduce the possibility of delirium - prn analgesia per CPOT score - Maintenance of sleep-wake cycle, avoid delirium - continue enteral nutritional support at goal rate as tolerated - G.I. & VTE prophylaxis - PT/OT/ROM exercises - continue mobility protocols for pressure ulcer prophylaxis - Monitor hemodynamics closely - continue other care per attending / other consultants - discharge planning ongoing concurrently COVID SPECIFIC INTERVENTIONS - COVID-19 PCR negative .... Re-evaluate in am & prn CONDITION: CRITICAL PROGNOSIS: GUARDED CODE STATUS: FULL CODE The high probability of a clinically significant, sudden or life-threatening deterioration of the [respiratory, cardiovascular & neurologic] system(s) required my full and direct attention, intervention and personal management. The aggregate critical care time was [32] minutes without overlap. Time includes spent on; [x] Data Review and interpretation [x] Patient assessment and monitoring of vital signs [x] Documentation [x] Medication orders and management Subjective Date of service: 12/15/21 Principal diagnosis: Septic shock; AHRF; Anemia; Pneumonia; pleural effusion; HFrEF; Pulm HTN Interval history: Patient is seen today for: Septic shock; Acute hypoxemic respiratory failure; Anemia; Bilateral pneumonia; Left pleural effusion; HFrEF 30-35%; Pulm HTN RVSP 49 Seen and examined at bedside; 24hour events reviewed; nursing and respiratory care staff consulted; no adverse overnight events reported to me; resting in bed; remains a difficult wean; on PSV trial with p-supp @ 18 cm H2O but pulling volumes uyp to 500 ml's; nodes head yes to chronic pain issues Objective Vital Signs - 12hr 12/15/21 12/15/21 12/15/21 01:00 01:30 02:00 Temperature Pulse Rate 64 66 67 Pulse Rate [ From Monitor] Respiratory 14 14 15 Rate Blood Pressure 117/45 120/49 121/49 O2 Sat by Pulse 98 99 99 Oximetry 12/15/21 12/15/21 12/15/21 02:30 03:00 03:30 Temperature Pulse Rate 66 69 78 Pulse Rate [ From Monitor] Respiratory 14 13 16 Rate Blood Pressure 125/50 129/53 123/65 O2 Sat by Pulse 98 99 98 Oximetry 12/15/21 12/15/21 12/15/21 03:43 03:48 04:00 Temperature 98.2 F Pulse Rate 82 Pulse Rate [ 82 From Monitor] Respiratory 23 18 Rate Blood Pressure 117/54 O2 Sat by Pulse 98 97 Oximetry 12/15/21 12/15/21 12/15/21 04:20 04:31 05:00 Temperature Pulse Rate 87 97 H 91 H Pulse Rate [ From Monitor] Respiratory 18 15 Rate Blood Pressure 123/66 131/71 157/67 O2 Sat by Pulse 99 99 98 Oximetry 12/15/21 12/15/21 12/15/21 05:30 06:01 06:30 Temperature Pulse Rate 93 H 80 Pulse Rate [ From Monitor] Respiratory 16 14 Rate Blood Pressure 142/84 170/128 134/57 O2 Sat by Pulse 99 92 99 Oximetry 12/15/21 12/15/21 12/15/21 07:00 07:22 07:30 Temperature 100.2 F H Pulse Rate 79 75 Pulse Rate [ From Monitor] Respiratory 17 14 Rate Blood Pressure 133/55 123/50 O2 Sat by Pulse 100 100 Oximetry 12/15/21 12/15/2112/15/22 07:31 08:00 08:31 Temperature Pulse Rate 75 75 81 Pulse Rate [ 79 From Monitor] Respiratory 15 12 Rate Blood Pressure 123/50 122/50 97/60 O2 Sat by Pulse 100 100 100 Oximetry 12/15/21 12/15/21 12/15/21 09:00 09:30 10:00 Temperature Pulse Rate 75 77 68 Pulse Rate [ From Monitor] Respiratory 13 18 14 Rate Blood Pressure 79/41 81/47 98/32 O2 Sat by Pulse 99 98 97 Oximetry 12/15/21 12/15/21 12/15/21 10:30 11:00 11:22 Temperature 99.2 F Pulse Rate 67 63 Pulse Rate [ From Monitor] Respiratory 14 14 Rate Blood Pressure 96/30 95/28 O2 Sat by Pulse 98 98 Oximetry 12/15/21 12/15/21 12/15/21 11:28 11:30 12:00 Temperature Pulse Rate 65 63 90 Pulse Rate [ 79 From Monitor] Respiratory 16 14 Rate Blood Pressure 114/42 148/118 O2 Sat by Pulse 98 98 98 Oximetry 12/15/21 12:01 Temperature Pulse Rate 82 Pulse Rate [ From Monitor] Respiratory 19 Rate Blood Pressure 148/118 O2 Sat by Pulse 98 Oximetry Constitutional: alert, appears uncomfortable (restless really), other (trach to MVS, frail elderly woman with mildly increased respiratory effort at rest) Eyes: non-icteric ENT: oropharynx moist, other (+ Midline tracheostomy) Neck: supple, no lymphadenopathy, no JVD Effort: mildly labored Ascultation: Bilateral: diminished breath sounds, rhonchi Percussion: Bilateral: not dull Cardiovascular: regular rate and rhythm, other (S1,S2) Gastrointestinal: normoactive bowel sounds, soft, non-tender, non-distended (protuberant) Integumentary: normal Extremities: no cyanosis, pink and warm, pulses normal, edema (upper etremities) Neurologic: normal mental status, non-focal exam (grossly), pupils equal and round, motor strength normal and Psychiatric: mood appropriate, affect normal CBC and BMP: 12/16/21 10:21 12/16/21 10:21 ABG, PT/INR, D-dimer: ABG ABG pH 7.449 pH Units (7.350-7.450) 11/21/21 16:00 ABG pCO2 32.1 mm Hg 11/21/21 16:00 ABG pO2 114.2 mm Hg (80.0-90.0) H 11/21/21 16:00 ABG O2 Saturation 98.3 % (95.0-99.0) 11/21/21 16:00 PT/INR, D-dimer PT 16.9 Sec. (12.2-14.9) H 11/26/21 05:00 INR 1.24 (0.87-1.13) H 11/26/21 05:00 D-Dimer 2655.00 ng/mlDDU (0-234) H 11/11/21 04:28 Abnormal lab findings: Abnormal Labs 11/03/21 11/03/21 11/03/21 22:32 22:32 22:32 WBC 29.3 H RBC 2.93 L Hgb 6.1 L Hct 21.9 L MCV 75 L MCH 21 L MCHC 28 L RDW 19.7 H Plt Count Seg Neuts % (Manual) 97.0 H Lymphocytes % (Manual) 3.0 L Seg Neutrophils # Man 28.4 H Lymphocytes # (Manual) 0.9 L Monocytes # (Manual) PT 18.6 H INR 1.40 H D-Dimer ABG pH ABG pO2 ABG HCO3 ABG O2 Saturation ABG Base Excess ABG Hemoglobin Oxyhemoglobin Sodium Potassium Chloride Carbon Dioxide 20 L BUN 33 H Creatinine Glucose 119 H POC Glucose Lactic Acid Calcium 8.3 L Phosphorus Magnesium AST ALT Alkaline Phosphatase Lactate Dehydrogenase Troponin T 0.035 H C-Reactive Protein NT-Pro-B Natriuret Pep Total Protein Albumin LDL Cholesterol Direct 34 L Vitamin B12 Crossmatch 11/03/21 11/03/21 11/03/21 22:32 22:32 23:57 WBC RBC Hgb Hct MCV MCH MCHC RDW Plt Count Seg Neuts % (Manual) Lymphocytes % (Manual) Seg Neutrophils # Man Lymphocytes # (Manual) Monocytes # (Manual) PT INR D-Dimer ABG pH ABG pO2 ABG HCO3 ABG O2 Saturation ABG Base Excess ABG Hemoglobin Oxyhemoglobin Sodium Potassium Chloride Carbon Dioxide BUN Creatinine Glucose POC Glucose Lactic Acid 3.70 H* Calcium Phosphorus Magnesium AST ALT Alkaline Phosphatase 139 H Lactate Dehydrogenase Troponin T C-Reactive Protein NT-Pro-B Natriuret Pep 7895 H Total Protein Albumin 3.5 L LDL Cholesterol Direct Vitamin B12 Crossmatch See Detail 11/04/21 11/04/21 11/05/21 00:59 13:58 00:51 WBC 27.9 H RBC 3.28 L Hgb 7.3 L Hct 25.5 L MCV 78 L MCH 22 L MCHC 29 L RDW 19.1 H Plt Count Seg Neuts % (Manual) 96.0 H Lymphocytes % (Manual) 2.0 L Seg Neutrophils # Man 26.8 H Lymphocytes # (Manual) 0.6 L Monocytes # (Manual) PT INR D-Dimer ABG pH ABG pO2 ABG HCO3 ABG O2 Saturation ABG Base Excess ABG Hemoglobin Oxyhemoglobin Sodium Potassium Chloride Carbon Dioxide BUN Creatinine Glucose POC Glucose Lactic Acid Calcium Phosphorus Magnesium AST ALT Alkaline Phosphatase Lactate Dehydrogenase Troponin T 0.051 H D 0.032 H D C-Reactive Protein NT-Pro-B Natriuret Pep Total Protein Albumin LDL Cholesterol Direct Vitamin B12 Crossmatch 11/05/21 11/05/21 11/05/21 06:11 06:11 06:11 WBC 31.8 H RBC 3.57 L Hgb 8.0 L Hct 27.7 L MCV 78 L MCH 22 L MCHC 29 L RDW 19.2 H Plt Count Seg Neuts % (Manual) 91.0 H Lymphocytes % (Manual) 4.5 L Seg Neutrophils # Man 28.9 H Lymphocytes # (Manual) Monocytes # (Manual) 1.1 H PT INR D-Dimer 1494.53 H ABG pH ABG pO2 ABG HCO3 ABG O2 Saturation ABG Base Excess ABG Hemoglobin Oxyhemoglobin Sodium Potassium Chloride Carbon Dioxide 19 L BUN 42 H Creatinine Glucose 115 H POC Glucose Lactic Acid Calcium Phosphorus Magnesium AST 43 H ALT Alkaline Phosphatase Lactate Dehydrogenase 187 H Troponin T C-Reactive Protein 22.20 H NT-Pro-B Natriuret Pep Total Protein 6.0 L Albumin 3.2 L LDL Cholesterol Direct Vitamin B12 Crossmatch 11/05/21 11/05/21 11/06/21 06:11 12:15 00:30 WBC RBC Hgb Hct MCV MCH MCHC RDW Plt Count Seg Neuts % (Manual) Lymphocytes % (Manual) Seg Neutrophils # Man Lymphocytes # (Manual) Monocytes # (Manual) PT INR D-Dimer ABG pH ABG pO2 ABG HCO3 ABG O2 Saturation ABG Base Excess ABG Hemoglobin Oxyhemoglobin Sodium Potassium Chloride Carbon Dioxide BUN Creatinine Glucose POC Glucose 113 H 69 L Lactic Acid Calcium Phosphorus Magnesium AST ALT Alkaline Phosphatase Lactate Dehydrogenase Troponin T 0.033 H C-Reactive Protein NT-Pro-B Natriuret Pep Total Protein Albumin LDL Cholesterol Direct Vitamin B12 Crossmatch 11/06/21 11/06/21 11/06/21 05:50 15:50 15:50 WBC 25.5 H RBC 3.62 L Hgb 8.0 L Hct 27.5 L MCV 76 L MCH 22 L MCHC 29 L RDW 19.6 H Plt Count Seg Neuts % (Manual) 92.0 H Lymphocytes % (Manual) 5.0 L Seg Neutrophils # Man 23.5 H Lymphocytes # (Manual) Monocytes # (Manual) PT INR D-Dimer ABG pH 7.305 L ABG pO2 ABG HCO3 15.8 L ABG O2 Saturation ABG Base Excess -9.6 L ABG Hemoglobin 8.6 L Oxyhemoglobin 94.6 L Sodium Potassium Chloride 113.9 H Carbon Dioxide 17 L BUN 56 H Creatinine Glucose 114 H POC Glucose Lactic Acid Calcium 7.9 L Phosphorus Magnesium AST 1410 H ALT 934 H Alkaline Phosphatase 142 H Lactate Dehydrogenase Troponin T C-Reactive Protein NT-Pro-B Natriuret Pep Total Protein 5.0 L Albumin 2.6 L LDL Cholesterol Direct Vitamin B12 Crossmatch 11/07/21 11/07/21 11/07/21 03:30 04:50 08:07 WBC RBC Hgb Hct MCV MCH MCHC RDW Plt Count Seg Neuts % (Manual) Lymphocytes % (Manual) Seg Neutrophils # Man Lymphocytes # (Manual) Monocytes # (Manual) PT INR D-Dimer ABG pH ABG pO2 296.9 H ABG HCO3 18.1 L ABG O2 Saturation 99.5 H ABG Base Excess -5.9 L ABG Hemoglobin 7.6 L Oxyhemoglobin Sodium Potassium Chloride Carbon Dioxide BUN Creatinine Glucose POC Glucose 106 H 108 H Lactic Acid Calcium Phosphorus Magnesium AST ALT Alkaline Phosphatase Lactate Dehydrogenase Troponin T C-Reactive Protein NT-Pro-B Natriuret Pep Total Protein Albumin LDL Cholesterol Direct Vitamin B12 Crossmatch 11/08/21 11/08/21 11/08/21 03:10 18:05 23:43 WBC RBC Hgb Hct MCV MCH MCHC RDW Plt Count Seg Neuts % (Manual) Lymphocytes % (Manual) Seg Neutrophils # Man Lymphocytes # (Manual) Monocytes # (Manual) PT INR D-Dimer ABG pH ABG pO2 127.4 H ABG HCO3 ABG O2 Saturation ABG Base Excess -3.4 L ABG Hemoglobin 7.4 L Oxyhemoglobin Sodium Potassium Chloride Carbon Dioxide BUN Creatinine Glucose POC Glucose 113 H 141 H Lactic Acid Calcium Phosphorus Magnesium AST ALT Alkaline Phosphatase Lactate Dehydrogenase Troponin T C-Reactive Protein NT-Pro-B Natriuret Pep Total Protein Albumin LDL Cholesterol Direct Vitamin B12 Crossmatch 11/08/21 11/08/21 11/09/21 Unknown Unknown 02:00 WBC 14.5 H RBC 3.35 L Hgb 7.5 L 8.1 L Hct 25.4 L 27.6 L MCV 76 L 76 L MCH 23 L 22 L MCHC RDW 19.9 H 19.9 H Plt Count Seg Neuts % (Manual) Lymphocytes % (Manual) Seg Neutrophils # Man Lymphocytes # (Manual) Monocytes # (Manual) PT INR D-Dimer ABG pH ABG pO2 ABG HCO3 ABG O2 Saturation ABG Base Excess ABG Hemoglobin Oxyhemoglobin Sodium 154 H D Potassium 3.3 L Chloride 120.7 H Carbon Dioxide 20 L BUN 38 H Creatinine Glucose POC Glucose Lactic Acid Calcium 8.3 L Phosphorus Magnesium AST ALT Alkaline Phosphatase Lactate Dehydrogenase Troponin T C-Reactive Protein NT-Pro-B Natriuret Pep Total Protein Albumin LDL Cholesterol Direct Vitamin B12 Crossmatch 11/09/21 11/09/21 11/09/21 02:00 02:31 05:12 WBC RBC Hgb Hct MCV MCH MCHC RDW Plt Count Seg Neuts % (Manual) Lymphocytes % (Manual) Seg Neutrophils # Man Lymphocytes # (Manual) Monocytes # (Manual) PT INR D-Dimer ABG pH 7.479 H ABG pO2 121.3 H ABG HCO3 ABG O2 Saturation ABG Base Excess ABG Hemoglobin 7.3 L Oxyhemoglobin Sodium Potassium Chloride 112.5 H Carbon Dioxide BUN 33 H Creatinine Glucose 161 H POC Glucose 135 H Lactic Acid Calcium Phosphorus Magnesium AST 251 H ALT 481 H Alkaline Phosphatase Lactate Dehydrogenase Troponin T C-Reactive Protein NT-Pro-B Natriuret Pep Total Protein 5.0 L Albumin 2.8 L LDL Cholesterol Direct Vitamin B12 Crossmatch 11/09/21 11/09/21 11/09/21 11:33 16:32 23:28 WBC RBC Hgb Hct MCV MCH MCHC RDW Plt Count Seg Neuts % (Manual) Lymphocytes % (Manual) Seg Neutrophils # Man Lymphocytes # (Manual) Monocytes # (Manual) PT INR D-Dimer ABG pH ABG pO2 ABG HCO3 ABG O2 Saturation ABG Base Excess ABG Hemoglobin Oxyhemoglobin Sodium Potassium Chloride Carbon Dioxide BUN Creatinine Glucose POC Glucose 132 H 133 H 143 H Lactic Acid Calcium Phosphorus Magnesium AST ALT Alkaline Phosphatase Lactate Dehydrogenase Troponin T C-Reactive Protein NT-Pro-B Natriuret Pep Total Protein Albumin LDL Cholesterol Direct Vitamin B12 Crossmatch 11/10/21 11/10/21 11/10/21 04:00 04:00 05:35 WBC 16.0 H RBC 3.61 L Hgb 8.0 L Hct 27.1 L MCV 75 L MCH 22 L MCHC RDW 20.4 H Plt Count Seg Neuts % (Manual) Lymphocytes % (Manual) Seg Neutrophils # Man Lymphocytes # (Manual) Monocytes # (Manual) PT INR D-Dimer ABG pH ABG pO2 ABG HCO3 ABG O2 Saturation ABG Base Excess ABG Hemoglobin Oxyhemoglobin Sodium 149 H Potassium Chloride 114.1 H Carbon Dioxide BUN 31 H Creatinine Glucose 148 H POC Glucose 132 H Lactic Acid Calcium 8.2 L Phosphorus Magnesium AST ALT Alkaline Phosphatase Lactate Dehydrogenase Troponin T C-Reactive Protein NT-Pro-B Natriuret Pep Total Protein Albumin LDL Cholesterol Direct Vitamin B12 Crossmatch 11/10/21 11/10/21 11/10/21 11:31 14:08 15:35 WBC RBC Hgb Hct MCV MCH MCHC RDW Plt Count Seg Neuts % (Manual) Lymphocytes % (Manual) Seg Neutrophils # Man Lymphocytes # (Manual) Monocytes # (Manual) PT INR D-Dimer ABG pH ABG pO2 126.6 H ABG HCO3 ABG O2 Saturation ABG Base Excess ABG Hemoglobin 7.4 L Oxyhemoglobin Sodium Potassium Chloride Carbon Dioxide BUN Creatinine Glucose POC Glucose 147 H Lactic Acid Calcium Phosphorus Magnesium AST ALT Alkaline Phosphatase Lactate Dehydrogenase Troponin T C-Reactive Protein NT-Pro-B Natriuret Pep Total Protein Albumin LDL Cholesterol Direct Vitamin B12 1823 H Crossmatch 11/10/21 11/11/21 11/11/21 17:53 00:55 04:28 WBC RBC Hgb Hct MCV MCH MCHC RDW Plt Count Seg Neuts % (Manual) Lymphocytes % (Manual) Seg Neutrophils # Man Lymphocytes # (Manual) Monocytes # (Manual) PT INR D-Dimer ABG pH ABG pO2 ABG HCO3 ABG O2 Saturation ABG Base Excess ABG Hemoglobin Oxyhemoglobin Sodium 149 H Potassium Chloride 112.2 H Carbon Dioxide BUN 34 H Creatinine Glucose 148 H POC Glucose 140 H 145 H Lactic Acid Calcium 7.9 L Phosphorus Magnesium AST 53 H ALT 203 H Alkaline Phosphatase Lactate Dehydrogenase Troponin T C-Reactive Protein NT-Pro-B Natriuret Pep Total Protein 4.9 L Albumin 2.6 L LDL Cholesterol Direct Vitamin B12 Crossmatch 11/11/21 11/11/21 11/11/21 04:28 04:28 05:28 WBC 20.9 H RBC 3.47 L Hgb 7.5 L Hct 26.0 L MCV 75 L MCH 22 L MCHC 29 L RDW 21.6 H Plt Count 132 L Seg Neuts % (Manual) Lymphocytes % (Manual) Seg Neutrophils # Man Lymphocytes # (Manual) Monocytes # (Manual) PT INR D-Dimer 2655.00 H ABG pH ABG pO2 ABG HCO3 ABG O2 Saturation ABG Base Excess ABG Hemoglobin Oxyhemoglobin Sodium Potassium Chloride Carbon Dioxide BUN Creatinine Glucose POC Glucose 154 H Lactic Acid Calcium Phosphorus Magnesium AST ALT Alkaline Phosphatase Lactate Dehydrogenase Troponin T C-Reactive Protein NT-Pro-B Natriuret Pep Total Protein Albumin LDL Cholesterol Direct Vitamin B12 Crossmatch 11/11/21 11/11/21 11/12/21 12:38 18:13 00:14 WBC RBC Hgb Hct MCV MCH MCHC RDW Plt Count Seg Neuts % (Manual) Lymphocytes % (Manual) Seg Neutrophils # Man Lymphocytes # (Manual) Monocytes # (Manual) PT INR D-Dimer ABG pH ABG pO2 ABG HCO3 ABG O2 Saturation ABG Base Excess ABG Hemoglobin Oxyhemoglobin Sodium Potassium Chloride Carbon Dioxide BUN Creatinine Glucose POC Glucose 137 H 108 H 137 H Lactic Acid Calcium Phosphorus Magnesium AST ALT Alkaline Phosphatase Lactate Dehydrogenase Troponin T C-Reactive Protein NT-Pro-B Natriuret Pep Total Protein Albumin LDL Cholesterol Direct Vitamin B12 Crossmatch 11/12/21 11/12/21 11/12/21 05:40 06:24 11:12 WBC RBC Hgb Hct MCV MCH MCHC RDW Plt Count Seg Neuts % (Manual) Lymphocytes % (Manual) Seg Neutrophils # Man Lymphocytes # (Manual) Monocytes # (Manual) PT INR D-Dimer ABG pH 7.586 H ABG pO2 150.6 H ABG HCO3 27.2 H ABG O2 Saturation 99.1 H ABG Base Excess 5.2 H ABG Hemoglobin 7.5 L Oxyhemoglobin Sodium Potassium Chloride Carbon Dioxide BUN Creatinine Glucose POC Glucose 132 H 140 H Lactic Acid Calcium Phosphorus Magnesium AST ALT Alkaline Phosphatase Lactate Dehydrogenase Troponin T C-Reactive Protein NT-Pro-B Natriuret Pep Total Protein Albumin LDL Cholesterol Direct Vitamin B12 Crossmatch 11/12/21 11/12/21 11/12/21 14:50 14:50 17:13 WBC 19.8 H RBC 3.27 L Hgb 7.1 L Hct 24.5 L MCV 75 L MCH 22 L MCHC 29 L RDW 22.3 H Plt Count Seg Neuts % (Manual) Lymphocytes % (Manual) Seg Neutrophils # Man Lymphocytes # (Manual) Monocytes # (Manual) PT INR D-Dimer ABG pH ABG pO2 ABG HCO3 ABG O2 Saturation ABG Base Excess ABG Hemoglobin Oxyhemoglobin Sodium 150 H Potassium 3.3 L Chloride 112.0 H Carbon Dioxide BUN 40 H Creatinine Glucose 151 H POC Glucose 121 H Lactic Acid Calcium 7.4 L Phosphorus 1.70 L Magnesium 1.40 L AST ALT Alkaline Phosphatase Lactate Dehydrogenase Troponin T C-Reactive Protein NT-Pro-B Natriuret Pep Total Protein Albumin LDL Cholesterol Direct Vitamin B12 Crossmatch 11/12/21 11/13/21 11/13/21 23:19 05:34 06:30 WBC RBC Hgb Hct MCV MCH MCHC RDW Plt Count Seg Neuts % (Manual) Lymphocytes % (Manual) Seg Neutrophils # Man Lymphocytes # (Manual) Monocytes # (Manual) PT INR D-Dimer ABG pH ABG pO2 ABG HCO3 ABG O2 Saturation ABG Base Excess ABG Hemoglobin Oxyhemoglobin Sodium 149 H Potassium Chloride 60.0 L Carbon Dioxide BUN 40 H Creatinine Glucose 146 H POC Glucose 113 H 132 H Lactic Acid Calcium 7.3 L Phosphorus Magnesium 2.40 H AST ALT 72 H Alkaline Phosphatase Lactate Dehydrogenase Troponin T C-Reactive Protein NT-Pro-B Natriuret Pep Total Protein 5.2 L Albumin 2.2 L LDL Cholesterol Direct Vitamin B12 Crossmatch 11/13/21 11/13/21 11/13/21 06:30 08:30 11:19 WBC 21.2 H RBC 3.12 L Hgb 6.8 L Hct 23.2 L MCV 74 L MCH 22 L MCHC 29 L RDW 22.2 H Plt Count 135 L Seg Neuts % (Manual) Lymphocytes % (Manual) Seg Neutrophils # Man Lymphocytes # (Manual) Monocytes # (Manual) PT INR D-Dimer ABG pH ABG pO2 ABG HCO3 ABG O2 Saturation ABG Base Excess ABG Hemoglobin Oxyhemoglobin Sodium Potassium Chloride Carbon Dioxide BUN Creatinine Glucose POC Glucose 136 H Lactic Acid Calcium Phosphorus Magnesium AST ALT Alkaline Phosphatase Lactate Dehydrogenase Troponin T C-Reactive Protein NT-Pro-B Natriuret Pep Total Protein Albumin LDL Cholesterol Direct Vitamin B12 Crossmatch See Detail 11/13/21 11/14/21 11/14/21 18:21 00:01 04:46 WBC 20.0 H RBC 3.41 L Hgb 7.9 L Hct 26.8 L MCV MCH 23 L MCHC 29 L RDW 24.0 H Plt Count Seg Neuts % (Manual) Lymphocytes % (Manual) Seg Neutrophils # Man Lymphocytes # (Manual) Monocytes # (Manual) PT INR D-Dimer ABG pH ABG pO2 ABG HCO3 ABG O2 Saturation ABG Base Excess ABG Hemoglobin Oxyhemoglobin Sodium Potassium Chloride Carbon Dioxide BUN Creatinine Glucose POC Glucose 149 H 141 H Lactic Acid Calcium Phosphorus Magnesium AST ALT Alkaline Phosphatase Lactate Dehydrogenase Troponin T C-Reactive Protein NT-Pro-B Natriuret Pep Total Protein Albumin LDL Cholesterol Direct Vitamin B12 Crossmatch 11/14/21 11/14/21 11/14/21 04:46 05:10 11:10 WBC RBC Hgb Hct MCV MCH MCHC RDW Plt Count Seg Neuts % (Manual) Lymphocytes % (Manual) Seg Neutrophils # Man Lymphocytes # (Manual) Monocytes # (Manual) PT INR D-Dimer ABG pH ABG pO2 ABG HCO3 ABG O2 Saturation ABG Base Excess ABG Hemoglobin Oxyhemoglobin Sodium 148 H Potassium Chloride 113.1 H Carbon Dioxide BUN 43 H Creatinine Glucose 140 H POC Glucose 132 H 133 H Lactic Acid Calcium 7.5 L Phosphorus Magnesium AST ALT Alkaline Phosphatase Lactate Dehydrogenase Troponin T C-Reactive Protein NT-Pro-B Natriuret Pep Total Protein Albumin LDL Cholesterol Direct Vitamin B12 Crossmatch 11/14/21 11/14/21 11/14/21 16:14 17:48 23:23 WBC RBC Hgb Hct MCV MCH MCHC RDW Plt Count Seg Neuts % (Manual) Lymphocytes % (Manual) Seg Neutrophils # Man Lymphocytes # (Manual) Monocytes # (Manual) PT INR D-Dimer ABG pH ABG pO2 ABG HCO3 28.0 H ABG O2 Saturation ABG Base Excess 3.1 H ABG Hemoglobin 5.8 L Oxyhemoglobin 94.8 L Sodium Potassium Chloride Carbon Dioxide BUN Creatinine Glucose POC Glucose 130 H 136 H Lactic Acid Calcium Phosphorus Magnesium AST ALT Alkaline Phosphatase Lactate Dehydrogenase Troponin T C-Reactive Protein NT-Pro-B Natriuret Pep Total Protein Albumin LDL Cholesterol Direct Vitamin B12 Crossmatch 11/15/21 11/15/21 11/15/21 05:20 05:50 05:50 WBC 19.9 H RBC 3.50 L Hgb 8.2 L Hct 27.9 L MCV MCH 23 L MCHC 29 L RDW 24.9 H Plt Count Seg Neuts % (Manual) Lymphocytes % (Manual) Seg Neutrophils # Man Lymphocytes # (Manual) Monocytes # (Manual) PT INR D-Dimer ABG pH ABG pO2 ABG HCO3 ABG O2 Saturation ABG Base Excess ABG Hemoglobin Oxyhemoglobin Sodium 149 H Potassium Chloride 112.0 H Carbon Dioxide BUN 48 H Creatinine Glucose 152 H POC Glucose 137 H Lactic Acid Calcium 7.9 L Phosphorus Magnesium AST ALT Alkaline Phosphatase Lactate Dehydrogenase Troponin T C-Reactive Protein NT-Pro-B Natriuret Pep Total Protein Albumin LDL Cholesterol Direct Vitamin B12 Crossmatch 11/15/21 11/15/21 11/15/21 12:12 17:07 23:24 WBC RBC Hgb Hct MCV MCH MCHC RDW Plt Count Seg Neuts % (Manual) Lymphocytes % (Manual) Seg Neutrophils # Man Lymphocytes # (Manual) Monocytes # (Manual) PT INR D-Dimer ABG pH ABG pO2 ABG HCO3 ABG O2 Saturation ABG Base Excess ABG Hemoglobin Oxyhemoglobin Sodium Potassium Chloride Carbon Dioxide BUN Creatinine Glucose POC Glucose 114 H 135 H 123 H Lactic Acid Calcium Phosphorus Magnesium AST ALT Alkaline Phosphatase Lactate Dehydrogenase Troponin T C-Reactive Protein NT-Pro-B Natriuret Pep Total Protein Albumin LDL Cholesterol Direct Vitamin B12 Crossmatch 11/16/21 11/16/21 11/16/21 05:21 10:00 10:00 WBC 21.7 H RBC 2.57 L Hgb 6.0 L Hct 20.2 L D MCV MCH 24 L MCHC RDW 26.3 H Plt Count Seg Neuts % (Manual) Lymphocytes % (Manual) Seg Neutrophils # Man Lymphocytes # (Manual) Monocytes # (Manual) PT INR D-Dimer ABG pH ABG pO2 ABG HCO3 ABG O2 Saturation ABG Base Excess ABG Hemoglobin Oxyhemoglobin Sodium 153 H Potassium Chloride 114.9 H Carbon Dioxide BUN 74 H Creatinine Glucose 155 H POC Glucose 127 H Lactic Acid Calcium 8.1 L Phosphorus Magnesium AST ALT Alkaline Phosphatase Lactate Dehydrogenase Troponin T C-Reactive Protein NT-Pro-B Natriuret Pep Total Protein Albumin LDL Cholesterol Direct Vitamin B12 Crossmatch 11/16/21 11/16/21 11/16/21 11:34 14:00 15:25 WBC 17.2 H RBC 2.08 L Hgb 4.7 L* Hct 16.2 L* MCV 78 L MCH 23 L MCHC 29 L RDW 26.0 H Plt Count Seg Neuts % (Manual) 87.0 H Lymphocytes % (Manual) 8.0 L Seg Neutrophils # Man 15.0 H Lymphocytes # (Manual) Monocytes # (Manual) 0.9 H PT INR D-Dimer ABG pH ABG pO2 ABG HCO3 ABG O2 Saturation ABG Base Excess ABG Hemoglobin Oxyhemoglobin Sodium Potassium Chloride Carbon Dioxide BUN Creatinine Glucose POC Glucose 131 H Lactic Acid Calcium Phosphorus Magnesium AST ALT Alkaline Phosphatase Lactate Dehydrogenase Troponin T C-Reactive Protein NT-Pro-B Natriuret Pep Total Protein Albumin LDL Cholesterol Direct Vitamin B12 Crossmatch See Detail 11/16/21 11/16/21 11/16/21 15:25 17:21 22:43 WBC RBC Hgb 8.6 L D Hct 27.7 L D MCV MCH MCHC RDW Plt Count Seg Neuts % (Manual) Lymphocytes % (Manual) Seg Neutrophils # Man Lymphocytes # (Manual) Monocytes # (Manual) PT INR D-Dimer ABG pH ABG pO2 ABG HCO3 ABG O2 Saturation ABG Base Excess ABG Hemoglobin Oxyhemoglobin Sodium 148 H Potassium Chloride 113.2 H Carbon Dioxide BUN 84 H Creatinine Glucose 164 H POC Glucose 124 H Lactic Acid Calcium 7.6 L Phosphorus Magnesium AST ALT Alkaline Phosphatase Lactate Dehydrogenase Troponin T C-Reactive Protein NT-Pro-B Natriuret Pep Total Protein Albumin LDL Cholesterol Direct Vitamin B12 Crossmatch 11/16/21 11/17/21 11/17/21 23:07 05:33 05:56 WBC 25.1 H RBC 3.47 L Hgb 8.7 L Hct 28.5 L MCV MCH 25 L MCHC RDW 22.3 H Plt Count Seg Neuts % (Manual) Lymphocytes % (Manual) Seg Neutrophils # Man Lymphocytes # (Manual) Monocytes # (Manual) PT INR D-Dimer ABG pH ABG pO2 ABG HCO3 ABG O2 Saturation ABG Base Excess ABG Hemoglobin Oxyhemoglobin Sodium Potassium Chloride Carbon Dioxide BUN Creatinine Glucose POC Glucose 128 H 133 H Lactic Acid Calcium Phosphorus Magnesium AST ALT Alkaline Phosphatase Lactate Dehydrogenase Troponin T C-Reactive Protein NT-Pro-B Natriuret Pep Total Protein Albumin LDL Cholesterol Direct Vitamin B12 Crossmatch 11/17/21 11/17/21 11/17/21 05:56 11:00 11:55 WBC RBC Hgb 8.3 L Hct 26.9 L MCV MCH MCHC RDW Plt Count Seg Neuts % (Manual) Lymphocytes % (Manual) Seg Neutrophils # Man Lymphocytes # (Manual) Monocytes # (Manual) PT INR D-Dimer ABG pH ABG pO2 ABG HCO3 ABG O2 Saturation ABG Base Excess ABG Hemoglobin Oxyhemoglobin Sodium 151 H Potassium Chloride 113.6 H Carbon Dioxide BUN 85 H Creatinine Glucose 132 H POC Glucose 121 H Lactic Acid Calcium 7.8 L Phosphorus Magnesium AST ALT Alkaline Phosphatase Lactate Dehydrogenase Troponin T C-Reactive Protein NT-Pro-B Natriuret Pep Total Protein 5.1 L Albumin 2.2 L LDL Cholesterol Direct Vitamin B12 Crossmatch 11/17/21 11/17/21 11/18/21 18:04 18:55 00:26 WBC RBC Hgb 7.5 L 7.1 L Hct 24.8 L 23.6 L MCV MCH MCHC RDW Plt Count Seg Neuts % (Manual) Lymphocytes % (Manual) Seg Neutrophils # Man Lymphocytes # (Manual) Monocytes # (Manual) PT INR D-Dimer ABG pH ABG pO2 ABG HCO3 ABG O2 Saturation ABG Base Excess ABG Hemoglobin Oxyhemoglobin Sodium Potassium Chloride Carbon Dioxide BUN Creatinine Glucose POC Glucose 144 H Lactic Acid Calcium Phosphorus Magnesium AST ALT Alkaline Phosphatase Lactate Dehydrogenase Troponin T C-Reactive Protein NT-Pro-B Natriuret Pep Total Protein Albumin LDL Cholesterol Direct Vitamin B12 Crossmatch 11/18/21 11/18/21 11/18/21 00:43 05:10 05:10 WBC 12.5 H RBC 2.39 L Hgb 6.1 L Hct 20.2 L MCV MCH 25 L MCHC RDW 23.2 H Plt Count Seg Neuts % (Manual) Lymphocytes % (Manual) Seg Neutrophils # Man Lymphocytes # (Manual) Monocytes # (Manual) PT INR D-Dimer ABG pH ABG pO2 ABG HCO3 ABG O2 Saturation ABG Base Excess ABG Hemoglobin Oxyhemoglobin Sodium 131 L D Potassium 2.9 L* D Chloride 97.8 L Carbon Dioxide BUN 58 H Creatinine Glucose 665 H* POC Glucose 139 H Lactic Acid Calcium 7.0 L Phosphorus 2.20 L D Magnesium 1.50 L AST ALT Alkaline Phosphatase Lactate Dehydrogenase Troponin T C-Reactive Protein NT-Pro-B Natriuret Pep Total Protein Albumin LDL Cholesterol Direct Vitamin B12 Crossmatch 11/18/21 11/18/21 11/18/21 05:23 07:10 10:45 WBC RBC Hgb Hct MCV MCH MCHC RDW Plt Count Seg Neuts % (Manual) Lymphocytes % (Manual) Seg Neutrophils # Man Lymphocytes # (Manual) Monocytes # (Manual) PT INR D-Dimer ABG pH ABG pO2 ABG HCO3 ABG O2 Saturation ABG Base Excess ABG Hemoglobin Oxyhemoglobin Sodium 148 H D Potassium 3.1 L Chloride 111.9 H Carbon Dioxide BUN 63 H Creatinine Glucose 141 H POC Glucose 124 H Lactic Acid Calcium 8.1 L D Phosphorus Magnesium AST ALT Alkaline Phosphatase Lactate Dehydrogenase Troponin T C-Reactive Protein NT-Pro-B Natriuret Pep Total Protein Albumin LDL Cholesterol Direct Vitamin B12 Crossmatch See Detail 11/18/21 11/19/21 11/19/21 11:57 00:19 04:55 WBC RBC 3.35 L Hgb 9.0 L 8.9 L Hct 28.3 L D 28.1 L MCV MCH 27 L MCHC RDW 20.3 H Plt Count Seg Neuts % (Manual) Lymphocytes % (Manual) Seg Neutrophils # Man Lymphocytes # (Manual) Monocytes # (Manual) PT INR D-Dimer ABG pH ABG pO2 ABG HCO3 ABG O2 Saturation ABG Base Excess ABG Hemoglobin Oxyhemoglobin Sodium Potassium Chloride Carbon Dioxide BUN Creatinine Glucose POC Glucose 119 H Lactic Acid Calcium Phosphorus Magnesium AST ALT Alkaline Phosphatase Lactate Dehydrogenase Troponin T C-Reactive Protein NT-Pro-B Natriuret Pep Total Protein Albumin LDL Cholesterol Direct Vitamin B12 Crossmatch 11/19/21 11/19/21 11/20/21 04:55 05:42 00:55 WBC RBC Hgb 9.0 L Hct 28.6 L MCV MCH MCHC RDW Plt Count Seg Neuts % (Manual) Lymphocytes % (Manual) Seg Neutrophils # Man Lymphocytes # (Manual) Monocytes # (Manual) PT INR D-Dimer ABG pH ABG pO2 ABG HCO3 ABG O2 Saturation ABG Base Excess ABG Hemoglobin Oxyhemoglobin Sodium Potassium 3.5 L Chloride 108.6 H Carbon Dioxide BUN 47 H Creatinine Glucose 207 H POC Glucose 63 L Lactic Acid Calcium 7.1 L Phosphorus Magnesium AST ALT Alkaline Phosphatase Lactate Dehydrogenase Troponin T C-Reactive Protein NT-Pro-B Natriuret Pep Total Protein Albumin LDL Cholesterol Direct Vitamin B12 Crossmatch 11/20/21 11/20/21 11/20/21 05:40 05:40 Unknown WBC RBC 3.40 L Hgb 9.1 L Hct 28.8 L MCV MCH 27 L MCHC RDW 20.7 H Plt Count Seg Neuts % (Manual) Lymphocytes % (Manual) Seg Neutrophils # Man Lymphocytes # (Manual) Monocytes # (Manual) PT INR D-Dimer ABG pH ABG pO2 ABG HCO3 ABG O2 Saturation ABG Base Excess -2.7 L ABG Hemoglobin 9.5 L Oxyhemoglobin 94.3 L Sodium Potassium 3.5 L Chloride 108.9 H Carbon Dioxide BUN 37 H Creatinine Glucose 117 H POC Glucose Lactic Acid Calcium 7.5 L Phosphorus Magnesium AST ALT Alkaline Phosphatase Lactate Dehydrogenase Troponin T C-Reactive Protein NT-Pro-B Natriuret Pep Total Protein Albumin LDL Cholesterol Direct Vitamin B12 Crossmatch 11/21/21 11/21/21 11/21/21 04:30 04:30 16:00 WBC RBC 3.25 L Hgb 8.6 L Hct 28.1 L MCV MCH 26 L MCHC RDW 20.7 H Plt Count Seg Neuts % (Manual) Lymphocytes % (Manual) Seg Neutrophils # Man Lymphocytes # (Manual) Monocytes # (Manual) PT INR D-Dimer ABG pH ABG pO2 114.2 H ABG HCO3 ABG O2 Saturation ABG Base Excess ABG Hemoglobin 9.1 L Oxyhemoglobin Sodium 134 L Potassium Chloride Carbon Dioxide 20 L BUN 34 H Creatinine Glucose POC Glucose Lactic Acid Calcium 7.1 L Phosphorus Magnesium AST ALT Alkaline Phosphatase Lactate Dehydrogenase Troponin T C-Reactive Protein NT-Pro-B Natriuret Pep Total Protein Albumin LDL Cholesterol Direct Vitamin B12 Crossmatch 11/22/21 11/22/21 11/22/21 07:07 07:07 23:54 WBC RBC 3.30 L Hgb 9.0 L Hct 28.5 L MCV MCH 27 L MCHC RDW 21.0 H Plt Count Seg Neuts % (Manual) Lymphocytes % (Manual) Seg Neutrophils # Man Lymphocytes # (Manual) Monocytes # (Manual) PT INR D-Dimer ABG pH ABG pO2 ABG HCO3 ABG O2 Saturation ABG Base Excess ABG Hemoglobin Oxyhemoglobin Sodium Potassium Chloride Carbon Dioxide BUN 32 H Creatinine Glucose 106 H POC Glucose 110 H Lactic Acid Calcium 7.5 L Phosphorus Magnesium AST ALT Alkaline Phosphatase Lactate Dehydrogenase Troponin T C-Reactive Protein NT-Pro-B Natriuret Pep Total Protein Albumin LDL Cholesterol Direct Vitamin B12 Crossmatch 11/23/21 11/23/21 11/23/21 04:38 04:38 06:01 WBC RBC 3.23 L Hgb 8.8 L Hct 28.0 L MCV MCH 27 L MCHC RDW 21.3 H Plt Count Seg Neuts % (Manual) Lymphocytes % (Manual) Seg Neutrophils # Man Lymphocytes # (Manual) Monocytes # (Manual) PT INR D-Dimer ABG pH ABG pO2 ABG HCO3 ABG O2 Saturation ABG Base Excess ABG Hemoglobin Oxyhemoglobin Sodium 136 L Potassium Chloride Carbon Dioxide 20 L BUN 32 H Creatinine Glucose 109 H POC Glucose 115 H Lactic Acid Calcium 7.7 L Phosphorus Magnesium AST ALT Alkaline Phosphatase Lactate Dehydrogenase Troponin T C-Reactive Protein NT-Pro-B Natriuret Pep Total Protein Albumin LDL Cholesterol Direct Vitamin B12 Crossmatch 11/23/21 11/24/21 11/24/21 11:40 00:03 04:13 WBC RBC 3.18 L Hgb 8.5 L Hct 27.5 L MCV MCH 27 L MCHC RDW 21.6 H Plt Count Seg Neuts % (Manual) Lymphocytes % (Manual) Seg Neutrophils # Man Lymphocytes # (Manual) Monocytes # (Manual) PT INR D-Dimer ABG pH ABG pO2 ABG HCO3 ABG O2 Saturation ABG Base Excess ABG Hemoglobin Oxyhemoglobin Sodium Potassium Chloride Carbon Dioxide BUN Creatinine Glucose POC Glucose 117 H 111 H Lactic Acid Calcium Phosphorus Magnesium AST ALT Alkaline Phosphatase Lactate Dehydrogenase Troponin T C-Reactive Protein NT-Pro-B Natriuret Pep Total Protein Albumin LDL Cholesterol Direct Vitamin B12 Crossmatch 11/24/21 11/24/21 11/24/21 04:13 05:30 11:10 WBC RBC Hgb Hct MCV MCH MCHC RDW Plt Count Seg Neuts % (Manual) Lymphocytes % (Manual) Seg Neutrophils # Man Lymphocytes # (Manual) Monocytes # (Manual) PT INR D-Dimer ABG pH ABG pO2 ABG HCO3 ABG O2 Saturation ABG Base Excess ABG Hemoglobin Oxyhemoglobin Sodium Potassium Chloride Carbon Dioxide BUN 31 H Creatinine Glucose 101 H POC Glucose 115 H 107 H Lactic Acid Calcium 7.7 L Phosphorus Magnesium AST ALT Alkaline Phosphatase Lactate Dehydrogenase Troponin T C-Reactive Protein NT-Pro-B Natriuret Pep Total Protein Albumin LDL Cholesterol Direct Vitamin B12 Crossmatch 11/24/21 11/24/21 11/25/21 16:34 17:57 05:12 WBC RBC 3.11 L Hgb 8.2 L Hct 26.6 L MCV MCH 26 L MCHC RDW 21.3 H Plt Count Seg Neuts % (Manual) Lymphocytes % (Manual) Seg Neutrophils # Man Lymphocytes # (Manual) Monocytes # (Manual) PT INR D-Dimer ABG pH ABG pO2 ABG HCO3 ABG O2 Saturation ABG Base Excess ABG Hemoglobin Oxyhemoglobin Sodium Potassium Chloride Carbon Dioxide BUN Creatinine Glucose POC Glucose 115 H 110 H Lactic Acid Calcium Phosphorus Magnesium AST ALT Alkaline Phosphatase Lactate Dehydrogenase Troponin T C-Reactive Protein NT-Pro-B Natriuret Pep Total Protein Albumin LDL Cholesterol Direct Vitamin B12 Crossmatch 11/25/21 11/25/21 11/26/21 05:12 11:20 05:00 WBC RBC 3.30 L Hgb 8.8 L Hct 28.2 L MCV MCH 27 L MCHC RDW 20.7 H Plt Count Seg Neuts % (Manual) Lymphocytes % (Manual) Seg Neutrophils # Man Lymphocytes # (Manual) Monocytes # (Manual) PT INR D-Dimer ABG pH ABG pO2 ABG HCO3 ABG O2 Saturation ABG Base Excess ABG Hemoglobin Oxyhemoglobin Sodium Potassium Chloride Carbon Dioxide BUN 32 H Creatinine Glucose 118 H POC Glucose 118 H Lactic Acid Calcium 8.2 L Phosphorus Magnesium AST ALT Alkaline Phosphatase Lactate Dehydrogenase Troponin T C-Reactive Protein NT-Pro-B Natriuret Pep Total Protein Albumin LDL Cholesterol Direct Vitamin B12 Crossmatch 11/26/21 11/26/21 11/26/21 05:00 05:00 05:44 WBC RBC Hgb Hct MCV MCH MCHC RDW Plt Count Seg Neuts % (Manual) Lymphocytes % (Manual) Seg Neutrophils # Man Lymphocytes # (Manual) Monocytes # (Manual) PT 16.9 H INR 1.24 H D-Dimer ABG pH ABG pO2 ABG HCO3 ABG O2 Saturation ABG Base Excess ABG Hemoglobin Oxyhemoglobin Sodium Potassium Chloride Carbon Dioxide BUN 31 H Creatinine Glucose 104 H POC Glucose 110 H Lactic Acid Calcium 7.9 L Phosphorus Magnesium AST ALT Alkaline Phosphatase Lactate Dehydrogenase Troponin T C-Reactive Protein NT-Pro-B Natriuret Pep Total Protein Albumin LDL Cholesterol Direct Vitamin B12 Crossmatch 11/26/21 11/27/21 11/27/21 23:55 07:40 07:40 WBC RBC 3.18 L Hgb 8.5 L Hct 27.0 L MCV MCH 27 L MCHC RDW 21.2 H Plt Count Seg Neuts % (Manual) Lymphocytes % (Manual) Seg Neutrophils # Man Lymphocytes # (Manual) Monocytes # (Manual) PT INR D-Dimer ABG pH ABG pO2 ABG HCO3 ABG O2 Saturation ABG Base Excess ABG Hemoglobin Oxyhemoglobin Sodium Potassium Chloride Carbon Dioxide BUN 27 H Creatinine Glucose 112 H POC Glucose 63 L Lactic Acid Calcium 7.6 L Phosphorus Magnesium AST ALT Alkaline Phosphatase Lactate Dehydrogenase Troponin T C-Reactive Protein NT-Pro-B Natriuret Pep Total Protein Albumin LDL Cholesterol Direct Vitamin B12 Crossmatch 11/27/21 11/27/21 11/27/21 12:04 13:40 13:40 WBC RBC 3.31 L Hgb 8.7 L Hct 28.0 L MCV MCH 26 L MCHC RDW 20.7 H Plt Count Seg Neuts % (Manual) Lymphocytes % (Manual) Seg Neutrophils # Man Lymphocytes # (Manual) Monocytes # (Manual) PT INR D-Dimer ABG pH ABG pO2 ABG HCO3 ABG O2 Saturation ABG Base Excess ABG Hemoglobin Oxyhemoglobin Sodium 136 L Potassium Chloride Carbon Dioxide BUN 25 H Creatinine Glucose 127 H POC Glucose 109 H Lactic Acid Calcium 7.6 L Phosphorus Magnesium 1.40 L AST ALT Alkaline Phosphatase Lactate Dehydrogenase Troponin T C-Reactive Protein NT-Pro-B Natriuret Pep Total Protein Albumin LDL Cholesterol Direct Vitamin B12 Crossmatch 11/27/21 11/27/21 11/28/21 17:44 23:33 12:20 WBC RBC Hgb Hct MCV MCH MCHC RDW Plt Count Seg Neuts % (Manual) Lymphocytes % (Manual) Seg Neutrophils # Man Lymphocytes # (Manual) Monocytes # (Manual) PT INR D-Dimer ABG pH ABG pO2 ABG HCO3 ABG O2 Saturation ABG Base Excess ABG Hemoglobin Oxyhemoglobin Sodium Potassium Chloride Carbon Dioxide BUN Creatinine Glucose POC Glucose 107 H 108 H 114 H Lactic Acid Calcium Phosphorus Magnesium AST ALT Alkaline Phosphatase Lactate Dehydrogenase Troponin T C-Reactive Protein NT-Pro-B Natriuret Pep Total Protein Albumin LDL Cholesterol Direct Vitamin B12 Crossmatch 11/29/21 11/29/21 11/29/21 00:09 03:20 03:20 WBC RBC 3.05 L Hgb 8.2 L Hct 25.8 L MCV MCH 27 L MCHC RDW 20.9 H Plt Count Seg Neuts % (Manual) Lymphocytes % (Manual) Seg Neutrophils # Man Lymphocytes # (Manual) Monocytes # (Manual) PT INR D-Dimer ABG pH ABG pO2 ABG HCO3 ABG O2 Saturation ABG Base Excess ABG Hemoglobin Oxyhemoglobin Sodium 133 L Potassium Chloride Carbon Dioxide BUN 24 H Creatinine Glucose 137 H POC Glucose 134 H Lactic Acid Calcium 7.4 L Phosphorus Magnesium AST ALT Alkaline Phosphatase Lactate Dehydrogenase Troponin T C-Reactive Protein NT-Pro-B Natriuret Pep Total Protein Albumin LDL Cholesterol Direct Vitamin B12 Crossmatch 11/29/21 11/29/21 11/29/21 05:38 11:39 17:11 WBC RBC Hgb Hct MCV MCH MCHC RDW Plt Count Seg Neuts % (Manual) Lymphocytes % (Manual) Seg Neutrophils # Man Lymphocytes # (Manual) Monocytes # (Manual) PT INR D-Dimer ABG pH ABG pO2 ABG HCO3 ABG O2 Saturation ABG Base Excess ABG Hemoglobin Oxyhemoglobin Sodium Potassium Chloride Carbon Dioxide BUN Creatinine Glucose POC Glucose 117 H 143 H 124 H Lactic Acid Calcium Phosphorus Magnesium AST ALT Alkaline Phosphatase Lactate Dehydrogenase Troponin T C-Reactive Protein NT-Pro-B Natriuret Pep Total Protein Albumin LDL Cholesterol Direct Vitamin B12 Crossmatch 11/29/21 11/30/21 11/30/21 20:15 05:40 05:40 WBC 12.6 H RBC 3.41 L Hgb 9.1 L Hct 28.9 L MCV MCH 27 L MCHC RDW 20.4 H Plt Count Seg Neuts % (Manual) Lymphocytes % (Manual) Seg Neutrophils # Man Lymphocytes # (Manual) Monocytes # (Manual) PT INR D-Dimer ABG pH ABG pO2 ABG HCO3 ABG O2 Saturation ABG Base Excess ABG Hemoglobin Oxyhemoglobin Sodium Potassium Chloride Carbon Dioxide BUN 24 H Creatinine Glucose 131 H POC Glucose Lactic Acid Calcium 7.6 L Phosphorus Magnesium AST ALT Alkaline Phosphatase Lactate Dehydrogenase Troponin T 0.045 H C-Reactive Protein NT-Pro-B Natriuret Pep Total Protein Albumin LDL Cholesterol Direct 25 L Vitamin B12 Crossmatch 11/30/21 11/30/21 12/01/21 11:29 16:51 05:00 WBC RBC 2.97 L Hgb 8.0 L Hct 25.0 L MCV MCH 27 L MCHC RDW 20.8 H Plt Count Seg Neuts % (Manual) Lymphocytes % (Manual) Seg Neutrophils # Man Lymphocytes # (Manual) Monocytes # (Manual) PT INR D-Dimer ABG pH ABG pO2 ABG HCO3 ABG O2 Saturation ABG Base Excess ABG Hemoglobin Oxyhemoglobin Sodium Potassium Chloride Carbon Dioxide BUN Creatinine Glucose POC Glucose 123 H 114 H Lactic Acid Calcium Phosphorus Magnesium AST ALT Alkaline Phosphatase Lactate Dehydrogenase Troponin T C-Reactive Protein NT-Pro-B Natriuret Pep Total Protein Albumin LDL Cholesterol Direct Vitamin B12 Crossmatch 12/01/21 12/01/21 12/01/21 05:00 05:25 11:54 WBC RBC Hgb Hct MCV MCH MCHC RDW Plt Count Seg Neuts % (Manual) Lymphocytes % (Manual) Seg Neutrophils # Man Lymphocytes # (Manual) Monocytes # (Manual) PT INR D-Dimer ABG pH ABG pO2 ABG HCO3 ABG O2 Saturation ABG Base Excess ABG Hemoglobin Oxyhemoglobin Sodium 136 L Potassium Chloride Carbon Dioxide BUN 24 H Creatinine Glucose 117 H POC Glucose 108 H 107 H Lactic Acid Calcium 7.5 L Phosphorus Magnesium 1.60 L AST ALT Alkaline Phosphatase Lactate Dehydrogenase Troponin T C-Reactive Protein NT-Pro-B Natriuret Pep Total Protein Albumin LDL Cholesterol Direct Vitamin B12 Crossmatch 12/01/21 12/02/21 12/02/21 17:40 00:07 04:20 WBC RBC 2.92 L Hgb 7.7 L Hct 24.3 L MCV MCH 26 L MCHC RDW 20.5 H Plt Count Seg Neuts % (Manual) Lymphocytes % (Manual) Seg Neutrophils # Man Lymphocytes # (Manual) Monocytes # (Manual) PT INR D-Dimer ABG pH ABG pO2 ABG HCO3 ABG O2 Saturation ABG Base Excess ABG Hemoglobin Oxyhemoglobin Sodium Potassium Chloride Carbon Dioxide BUN Creatinine Glucose POC Glucose 123 H 110 H Lactic Acid Calcium Phosphorus Magnesium AST ALT Alkaline Phosphatase Lactate Dehydrogenase Troponin T C-Reactive Protein NT-Pro-B Natriuret Pep Total Protein Albumin LDL Cholesterol Direct Vitamin B12 Crossmatch 12/02/21 12/02/21 12/02/21 04:20 11:17 18:20 WBC RBC Hgb Hct MCV MCH MCHC RDW Plt Count Seg Neuts % (Manual) Lymphocytes % (Manual) Seg Neutrophils # Man Lymphocytes # (Manual) Monocytes # (Manual) PT INR D-Dimer ABG pH ABG pO2 ABG HCO3 ABG O2 Saturation ABG Base Excess ABG Hemoglobin Oxyhemoglobin Sodium 135 L Potassium Chloride Carbon Dioxide BUN 26 H Creatinine Glucose 121 H POC Glucose 117 H 113 H Lactic Acid Calcium 7.4 L Phosphorus Magnesium AST ALT Alkaline Phosphatase Lactate Dehydrogenase Troponin T C-Reactive Protein NT-Pro-B Natriuret Pep Total Protein Albumin LDL Cholesterol Direct Vitamin B12 Crossmatch 12/03/21 12/03/21 12/03/21 00:12 04:00 04:00 WBC RBC 2.99 L Hgb 7.8 L Hct 24.6 L MCV MCH 26 L MCHC RDW 20.2 H Plt Count Seg Neuts % (Manual) Lymphocytes % (Manual) Seg Neutrophils # Man Lymphocytes # (Manual) Monocytes # (Manual) PT INR D-Dimer ABG pH ABG pO2 ABG HCO3 ABG O2 Saturation ABG Base Excess ABG Hemoglobin Oxyhemoglobin Sodium 136 L Potassium Chloride Carbon Dioxide BUN 27 H Creatinine Glucose 133 H POC Glucose 121 H Lactic Acid Calcium 7.5 L Phosphorus Magnesium AST ALT Alkaline Phosphatase Lactate Dehydrogenase Troponin T C-Reactive Protein NT-Pro-B Natriuret Pep Total Protein Albumin LDL Cholesterol Direct Vitamin B12 Crossmatch 12/03/21 12/03/21 12/03/21 06:30 11:13 16:00 WBC RBC Hgb Hct MCV MCH MCHC RDW Plt Count Seg Neuts % (Manual) Lymphocytes % (Manual) Seg Neutrophils # Man Lymphocytes # (Manual) Monocytes # (Manual) PT INR D-Dimer ABG pH ABG pO2 ABG HCO3 ABG O2 Saturation ABG Base Excess ABG Hemoglobin Oxyhemoglobin Sodium Potassium Chloride Carbon Dioxide BUN Creatinine Glucose POC Glucose 129 H 125 H 125 H Lactic Acid Calcium Phosphorus Magnesium AST ALT Alkaline Phosphatase Lactate Dehydrogenase Troponin T C-Reactive Protein NT-Pro-B Natriuret Pep Total Protein Albumin LDL Cholesterol Direct Vitamin B12 Crossmatch 12/03/21 12/04/21 12/04/21 23:32 04:00 05:36 WBC RBC Hgb Hct MCV MCH MCHC RDW Plt Count Seg Neuts % (Manual) Lymphocytes % (Manual) Seg Neutrophils # Man Lymphocytes # (Manual) Monocytes # (Manual) PT INR D-Dimer ABG pH ABG pO2 ABG HCO3 ABG O2 Saturation ABG Base Excess ABG Hemoglobin Oxyhemoglobin Sodium Potassium 3.5 L Chloride Carbon Dioxide BUN 26 H Creatinine 0.5 L Glucose 151 H POC Glucose 133 H 142 H Lactic Acid Calcium 8.3 L Phosphorus Magnesium AST ALT Alkaline Phosphatase Lactate Dehydrogenase Troponin T C-Reactive Protein NT-Pro-B Natriuret Pep Total Protein Albumin LDL Cholesterol Direct Vitamin B12 Crossmatch 12/04/21 12/04/21 12/05/21 11:24 15:58 04:36 WBC RBC Hgb Hct MCV MCH MCHC RDW Plt Count Seg Neuts % (Manual) Lymphocytes % (Manual) Seg Neutrophils # Man Lymphocytes # (Manual) Monocytes # (Manual) PT INR D-Dimer ABG pH ABG pO2 ABG HCO3 ABG O2 Saturation ABG Base Excess ABG Hemoglobin Oxyhemoglobin Sodium Potassium Chloride Carbon Dioxide BUN 21 H Creatinine 0.5 L Glucose 119 H POC Glucose 130 H 111 H Lactic Acid Calcium 8.3 L Phosphorus Magnesium AST ALT Alkaline Phosphatase Lactate Dehydrogenase Troponin T C-Reactive Protein NT-Pro-B Natriuret Pep Total Protein Albumin LDL Cholesterol Direct Vitamin B12 Crossmatch 12/05/21 12/05/21 12/05/21 05:15 10:40 11:12 WBC RBC 2.98 L Hgb 8.1 L Hct 24.6 L MCV MCH 27 L MCHC RDW 20.8 H Plt Count Seg Neuts % (Manual) Lymphocytes % (Manual) Seg Neutrophils # Man Lymphocytes # (Manual) Monocytes # (Manual) PT INR D-Dimer ABG pH ABG pO2 ABG HCO3 ABG O2 Saturation ABG Base Excess ABG Hemoglobin Oxyhemoglobin Sodium Potassium Chloride Carbon Dioxide BUN Creatinine Glucose POC Glucose 107 H 110 H Lactic Acid Calcium Phosphorus Magnesium AST ALT Alkaline Phosphatase Lactate Dehydrogenase Troponin T C-Reactive Protein NT-Pro-B Natriuret Pep Total Protein Albumin LDL Cholesterol Direct Vitamin B12 Crossmatch 12/05/21 12/06/21 12/06/21 23:39 04:25 04:25 WBC RBC 2.95 L Hgb 7.9 L Hct 24.7 L MCV MCH 27 L MCHC RDW 20.9 H Plt Count Seg Neuts % (Manual) Lymphocytes % (Manual) Seg Neutrophils # Man Lymphocytes # (Manual) Monocytes # (Manual) PT INR D-Dimer ABG pH ABG pO2 ABG HCO3 ABG O2 Saturation ABG Base Excess ABG Hemoglobin Oxyhemoglobin Sodium Potassium Chloride Carbon Dioxide BUN 22 H Creatinine 0.5 L Glucose 136 H POC Glucose 118 H Lactic Acid Calcium 8.2 L Phosphorus Magnesium AST ALT Alkaline Phosphatase Lactate Dehydrogenase Troponin T C-Reactive Protein NT-Pro-B Natriuret Pep Total Protein Albumin LDL Cholesterol Direct Vitamin B12 Crossmatch 12/06/21 12/06/21 12/07/21 05:28 11:27 04:00 WBC RBC Hgb 7.2 L Hct 21.8 L MCV MCH MCHC RDW Plt Count Seg Neuts % (Manual) Lymphocytes % (Manual) Seg Neutrophils # Man Lymphocytes # (Manual) Monocytes # (Manual) PT INR D-Dimer ABG pH ABG pO2 ABG HCO3 ABG O2 Saturation ABG Base Excess ABG Hemoglobin Oxyhemoglobin Sodium Potassium Chloride Carbon Dioxide BUN Creatinine Glucose POC Glucose 142 H 126 H Lactic Acid Calcium Phosphorus Magnesium AST ALT Alkaline Phosphatase Lactate Dehydrogenase Troponin T C-Reactive Protein NT-Pro-B Natriuret Pep Total Protein Albumin LDL Cholesterol Direct Vitamin B12 Crossmatch 12/07/21 12/07/21 12/07/21 04:00 05:30 11:12 WBC RBC Hgb Hct MCV MCH MCHC RDW Plt Count Seg Neuts % (Manual) Lymphocytes % (Manual) Seg Neutrophils # Man Lymphocytes # (Manual) Monocytes # (Manual) PT INR D-Dimer ABG pH ABG pO2 ABG HCO3 ABG O2 Saturation ABG Base Excess ABG Hemoglobin Oxyhemoglobin Sodium Potassium Chloride Carbon Dioxide BUN 22 H Creatinine Glucose 119 H POC Glucose 121 H 124 H Lactic Acid Calcium 8.0 L Phosphorus Magnesium AST ALT Alkaline Phosphatase Lactate Dehydrogenase Troponin T C-Reactive Protein NT-Pro-B Natriuret Pep Total Protein Albumin LDL Cholesterol Direct Vitamin B12 Crossmatch 12/08/21 12/08/21 12/08/21 04:00 04:00 05:39 WBC RBC 2.81 L Hgb 7.7 L Hct 23.5 L MCV MCH MCHC RDW 21.2 H Plt Count Seg Neuts % (Manual) Lymphocytes % (Manual) Seg Neutrophils # Man Lymphocytes # (Manual) Monocytes # (Manual) PT INR D-Dimer ABG pH ABG pO2 ABG HCO3 ABG O2 Saturation ABG Base Excess ABG Hemoglobin Oxyhemoglobin Sodium 135 L Potassium Chloride Carbon Dioxide BUN 23 H Creatinine Glucose 109 H POC Glucose 112 H Lactic Acid Calcium Phosphorus Magnesium AST ALT Alkaline Phosphatase Lactate Dehydrogenase Troponin T C-Reactive Protein NT-Pro-B Natriuret Pep Total Protein Albumin LDL Cholesterol Direct Vitamin B12 Crossmatch 12/08/21 12/09/21 12/09/21 11:03 04:20 04:20 WBC RBC 2.67 L Hgb 7.6 L Hct 22.1 L MCV MCH MCHC RDW 20.8 H Plt Count Seg Neuts % (Manual) Lymphocytes % (Manual) Seg Neutrophils # Man Lymphocytes # (Manual) Monocytes # (Manual) PT INR D-Dimer ABG pH ABG pO2 ABG HCO3 ABG O2 Saturation ABG Base Excess ABG Hemoglobin Oxyhemoglobin Sodium 135 L Potassium Chloride 97.8 L Carbon Dioxide BUN 26 H Creatinine Glucose 119 H POC Glucose 108 H Lactic Acid Calcium 7.7 L Phosphorus Magnesium AST ALT Alkaline Phosphatase Lactate Dehydrogenase Troponin T C-Reactive Protein NT-Pro-B Natriuret Pep Total Protein Albumin LDL Cholesterol Direct Vitamin B12 Crossmatch 12/09/21 12/10/21 12/10/21 11:26 04:33 11:12 WBC RBC Hgb Hct MCV MCH MCHC RDW Plt Count Seg Neuts % (Manual) Lymphocytes % (Manual) Seg Neutrophils # Man Lymphocytes # (Manual) Monocytes # (Manual) PT INR D-Dimer ABG pH ABG pO2 ABG HCO3 ABG O2 Saturation ABG Base Excess ABG Hemoglobin Oxyhemoglobin Sodium 136 L Potassium Chloride Carbon Dioxide BUN 27 H Creatinine Glucose 117 H POC Glucose 110 H 117 H Lactic Acid Calcium 8.2 L Phosphorus Magnesium AST ALT Alkaline Phosphatase Lactate Dehydrogenase Troponin T C-Reactive Protein NT-Pro-B Natriuret Pep Total Protein Albumin LDL Cholesterol Direct Vitamin B12 Crossmatch 12/10/21 12/10/21 12/11/21 16:02 23:31 04:35 WBC RBC 2.57 L Hgb 7.0 L Hct 21.4 L MCV MCH 27 L MCHC RDW 21.1 H Plt Count Seg Neuts % (Manual) Lymphocytes % (Manual) Seg Neutrophils # Man Lymphocytes # (Manual) Monocytes # (Manual) PT INR D-Dimer ABG pH ABG pO2 ABG HCO3 ABG O2 Saturation ABG Base Excess ABG Hemoglobin Oxyhemoglobin Sodium Potassium Chloride Carbon Dioxide BUN Creatinine Glucose POC Glucose 137 H 111 H Lactic Acid Calcium Phosphorus Magnesium AST ALT Alkaline Phosphatase Lactate Dehydrogenase Troponin T C-Reactive Protein NT-Pro-B Natriuret Pep Total Protein Albumin LDL Cholesterol Direct Vitamin B12 Crossmatch 12/11/21 12/11/21 12/11/21 04:35 12:46 16:07 WBC RBC Hgb Hct MCV MCH MCHC RDW Plt Count Seg Neuts % (Manual) Lymphocytes % (Manual) Seg Neutrophils # Man Lymphocytes # (Manual) Monocytes # (Manual) PT INR D-Dimer ABG pH ABG pO2 ABG HCO3 ABG O2 Saturation ABG Base Excess ABG Hemoglobin Oxyhemoglobin Sodium 136 L Potassium Chloride Carbon Dioxide BUN 27 H Creatinine Glucose 112 H POC Glucose 115 H 111 H Lactic Acid Calcium 7.6 L Phosphorus Magnesium AST ALT Alkaline Phosphatase Lactate Dehydrogenase Troponin T C-Reactive Protein NT-Pro-B Natriuret Pep Total Protein Albumin LDL Cholesterol Direct Vitamin B12 Crossmatch 12/11/21 12/12/21 12/12/21 23:42 04:30 04:30 WBC RBC 2.60 L Hgb 7.1 L Hct 21.5 L MCV MCH 27 L MCHC RDW 20.3 H Plt Count Seg Neuts % (Manual) Lymphocytes % (Manual) Seg Neutrophils # Man Lymphocytes # (Manual) Monocytes # (Manual) PT INR D-Dimer ABG pH ABG pO2 ABG HCO3 ABG O2 Saturation ABG Base Excess ABG Hemoglobin Oxyhemoglobin Sodium 135 L Potassium Chloride 97.9 L Carbon Dioxide BUN 26 H Creatinine 0.5 L Glucose 138 H POC Glucose 115 H Lactic Acid Calcium 8.2 L Phosphorus Magnesium AST ALT Alkaline Phosphatase Lactate Dehydrogenase Troponin T C-Reactive Protein NT-Pro-B Natriuret Pep Total Protein Albumin LDL Cholesterol Direct Vitamin B12 Crossmatch 12/12/21 12/12/21 12/12/21 04:30 05:10 11:51 WBC RBC Hgb Hct MCV MCH MCHC RDW Plt Count Seg Neuts % (Manual) Lymphocytes % (Manual) Seg Neutrophils # Man Lymphocytes # (Manual) Monocytes # (Manual) PT INR D-Dimer ABG pH ABG pO2 ABG HCO3 ABG O2 Saturation ABG Base Excess ABG Hemoglobin Oxyhemoglobin Sodium Potassium Chloride Carbon Dioxide BUN Creatinine Glucose POC Glucose 119 H 119 H Lactic Acid Calcium Phosphorus Magnesium AST ALT Alkaline Phosphatase Lactate Dehydrogenase Troponin T C-Reactive Protein NT-Pro-B Natriuret Pep Total Protein Albumin LDL Cholesterol Direct Vitamin B12 Crossmatch See Detail 12/13/21 12/13/21 12/13/21 00:52 04:00 04:00 WBC RBC 2.73 L Hgb 7.4 L Hct 22.8 L MCV MCH 27 L MCHC RDW 20.5 H Plt Count Seg Neuts % (Manual) Lymphocytes % (Manual) Seg Neutrophils # Man Lymphocytes # (Manual) Monocytes # (Manual) PT INR D-Dimer ABG pH ABG pO2 ABG HCO3 ABG O2 Saturation ABG Base Excess ABG Hemoglobin Oxyhemoglobin Sodium 134 L Potassium Chloride 96.7 L Carbon Dioxide BUN 23 H Creatinine 0.5 L Glucose 131 H POC Glucose 131 H Lactic Acid Calcium 8.1 L Phosphorus Magnesium AST ALT Alkaline Phosphatase Lactate Dehydrogenase Troponin T C-Reactive Protein NT-Pro-B Natriuret Pep Total Protein Albumin LDL Cholesterol Direct Vitamin B12 Crossmatch 12/13/21 12/13/21 12/13/21 05:23 12:11 17:18 WBC RBC Hgb Hct MCV MCH MCHC RDW Plt Count Seg Neuts % (Manual) Lymphocytes % (Manual) Seg Neutrophils # Man Lymphocytes # (Manual) Monocytes # (Manual) PT INR D-Dimer ABG pH ABG pO2 ABG HCO3 ABG O2 Saturation ABG Base Excess ABG Hemoglobin Oxyhemoglobin Sodium Potassium Chloride Carbon Dioxide BUN Creatinine Glucose POC Glucose 121 H 143 H 148 H Lactic Acid Calcium Phosphorus Magnesium AST ALT Alkaline Phosphatase Lactate Dehydrogenase Troponin T C-Reactive Protein NT-Pro-B Natriuret Pep Total Protein Albumin LDL Cholesterol Direct Vitamin B12 Crossmatch 12/14/21 12/14/21 12/14/21 00:54 04:20 04:20 WBC RBC 2.39 L Hgb 6.5 L Hct 20.3 L MCV MCH 27 L MCHC RDW 20.3 H Plt Count Seg Neuts % (Manual) Lymphocytes % (Manual) Seg Neutrophils # Man Lymphocytes # (Manual) Monocytes # (Manual) PT INR D-Dimer ABG pH ABG pO2 ABG HCO3 ABG O2 Saturation ABG Base Excess ABG Hemoglobin Oxyhemoglobin Sodium 130 L Potassium Chloride 93.5 L Carbon Dioxide BUN 25 H Creatinine Glucose 123 H POC Glucose 123 H Lactic Acid Calcium 8.0 L Phosphorus Magnesium AST ALT Alkaline Phosphatase Lactate Dehydrogenase Troponin T C-Reactive Protein NT-Pro-B Natriuret Pep Total Protein Albumin LDL Cholesterol Direct Vitamin B12 Crossmatch 12/14/21 12/14/21 12/14/21 05:06 08:17 10:30 WBC RBC Hgb Hct MCV MCH MCHC RDW Plt Count Seg Neuts % (Manual) Lymphocytes % (Manual) Seg Neutrophils # Man Lymphocytes # (Manual) Monocytes # (Manual) PT INR D-Dimer ABG pH ABG pO2 ABG HCO3 ABG O2 Saturation ABG Base Excess ABG Hemoglobin Oxyhemoglobin Sodium Potassium Chloride Carbon Dioxide BUN Creatinine Glucose POC Glucose 131 H 119 H Lactic Acid Calcium Phosphorus Magnesium AST ALT Alkaline Phosphatase Lactate Dehydrogenase Troponin T C-Reactive Protein NT-Pro-B Natriuret Pep Total Protein Albumin LDL Cholesterol Direct Vitamin B12 Crossmatch See Detail 12/14/21 12/14/21 12/14/21 12:15 16:37 23:27 WBC RBC Hgb Hct MCV MCH MCHC RDW Plt Count Seg Neuts % (Manual) Lymphocytes % (Manual) Seg Neutrophils # Man Lymphocytes # (Manual) Monocytes # (Manual) PT INR D-Dimer ABG pH ABG pO2 ABG HCO3 ABG O2 Saturation ABG Base Excess ABG Hemoglobin Oxyhemoglobin Sodium Potassium Chloride Carbon Dioxide BUN Creatinine Glucose POC Glucose 147 H 141 H 130 H Lactic Acid Calcium Phosphorus Magnesium AST ALT Alkaline Phosphatase Lactate Dehydrogenase Troponin T C-Reactive Protein NT-Pro-B Natriuret Pep Total Protein Albumin LDL Cholesterol Direct Vitamin B12 Crossmatch 12/15/21 12/15/21 12/15/21 05:00 07:00 07:00 WBC 12.3 H RBC 3.27 L Hgb 8.8 L Hct 27.5 L D MCV MCH 27 L MCHC RDW 19.0 H Plt Count Seg Neuts % (Manual) Lymphocytes % (Manual) Seg Neutrophils # Man Lymphocytes # (Manual) Monocytes # (Manual) PT INR D-Dimer ABG pH ABG pO2 ABG HCO3 ABG O2 Saturation ABG Base Excess ABG Hemoglobin Oxyhemoglobin Sodium 134 L Potassium Chloride 95.7 L Carbon Dioxide BUN 28 H Creatinine Glucose 129 H POC Glucose 129 H Lactic Acid Calcium 8.2 L Phosphorus Magnesium AST ALT Alkaline Phosphatase Lactate Dehydrogenase Troponin T C-Reactive Protein NT-Pro-B Natriuret Pep Total Protein Albumin LDL Cholesterol Direct Vitamin B12 Crossmatch 12/15/21 11:18 WBC RBC Hgb Hct MCV MCH MCHC RDW Plt Count Seg Neuts % (Manual) Lymphocytes % (Manual) Seg Neutrophils # Man Lymphocytes # (Manual) Monocytes # (Manual) PT INR D-Dimer ABG pH ABG pO2 ABG HCO3 ABG O2 Saturation ABG Base Excess ABG Hemoglobin Oxyhemoglobin Sodium Potassium Chloride Carbon Dioxide BUN Creatinine Glucose POC Glucose 139 H Lactic Acid Calcium Phosphorus Magnesium AST ALT Alkaline Phosphatase Lactate Dehydrogenase Troponin T C-Reactive Protein NT-Pro-B Natriuret Pep Total Protein Albumin LDL Cholesterol Direct Vitamin B12 Crossmatch Allied health notes reviewed: nursing
[2021-12-15] MEDS: QUEtiapine 25 MG TAB PO SCH (21:30)
[2021-12-15] MEDS: traZODone 50 MG TAB PO SCH (21:30)
[2021-12-15] MEDS: MELATONIN 5 MG TAB PO SCH (21:31)
[2021-12-15] MEDS: PRAVASTATIN 20 MG TAB PO SCH (21:32)
[2021-12-16] MEDS: LEVOTHYROXINE 125 MCG TAB PO SCH (06:39)
[2021-12-16] MEDS: SUCRALFATE 1 GM/10 ML ORAL LIQD PO SCH ×4 (06:39→21:27)
--- NOTE | 2021-12-16 09:50 | Progress Note ---
<LONNIE MAURICE - Last Filed: 12/16/21 20:32> Assessment and Plan Assessment and plan: This is a 81-year-old female with known history of diabetes mellitus, hypertension, PPM, and arthritis admitted for sepsis and acute hypoxia respiratory failure 2/2 bilateral pneumonia requiring intubation and ventilatory support Hospital Course to date: 11/04/2021: Empiric therapy with iv levaquin/vancomycin. COVID PCR pending. Will consult ID. PCCM consulted, will follow recs. Hypotensive this AM, ordered bolus and fluids at 150 cc/hr. May require pressor support if bp does not improve. 11/05/2021: GBS on bcx +, currently on rocephin IV. Currently on bipap due to respiratory distress overnight. Worsening BL opacities on CXR. May be volume overload vs pneumonia. Unfortunately bp too low for lasix at this point. WIll continue levophed and bipap. Once able to tolerate, may do trial of albumin/lasi x. Call attempt made to [facility], no response. Will try again tomorrow to update. 11/06/2021: Decompensated overnight requiring intubation. CXR shows worsening interstitial infiltrates. Currenlty on dopamine, levophed, vasopressin. PICC line ordered. Advised RN to place gamble for I/O monitoring. Would benefit from diuresis but very volume overloaded. Prognosis guarded 11/08: Off sedation this am, remains unresponsive only grimace to pain. Hold all sedatives agents for now, patient is off pressors this am. Hypernatremia from today's lab- D5W X1bag, and low K repleted, repeat lab in the am. Severe constipation also noted from KUB, BR added. 11/09: Sudden SPO2 drop in the 60s this am. Patient was manually bagged and deep suctioned. Patient is currently stable on the vent, repeat CXR with no significant change. D/w CCM Mucomyst and brochodilator added. Patient mentation is unchanged, continue to hold off on sedative agents. Neurology consulted. 11/10: Acute DVT noted on bilateral lower extremity Doppler ultrasound therefore she was started on Lovenox treatment dose. Failed SBT. Hypernatremia and hyperchloremia noted, free water flush adjusted. 11/11: Patient noted to be febrile with increasing of the cytosis, UA/BC sent and CXR ordered. ID escalated antibiotics to cefepime. CXR demonstrated mucous plug, bedside bronchoscopy was performed and O ETT was changed over bougie from 6 cm to 7.5. Patient was noted to have a pneumothorax postprocedure and chest tube was placed. Family updated by [facility]. Free water flush increased and will add Jaswant supplementation. 11/12: Patient not noted to follow commands, hypernatremia worsen/persist, increasing free water flush, potassium and magnesium and phosphorus repleted. Hemoglobin noted to be 7.1/24.5 from 7.03/12 yesterday. We will continue to trend and monitor. Vent changes per [facility]. Repeat CXR showed no residual pneumo thorax. Consider waterseal tomorrow. Given persistent leukocytosis antibiotics escalated to cefepime per ID. 11/13: Remains on cefepime and vancomycin, vent changes per [facility]. Anemia noted and given 1 unit PRBC. And beta-charleen held in setting of Levophed drip infusing. Remains on fentanyl drip. 11/14: Patient put on CPAP trial by [facility], will continue chest tube until after extubation. Will rest on assist control. CT brain was cancelled by [employer] and reordered. 11/15: Patient removed chest tube overnight. Will obtain cxr. remains on low dose levo. CTH completed with no acute findings. RT to place on CPAP. 11/16: Hypernatremia/hyperchloremia noted on the increase of day water flushes. Anemia noted and ordered PRBC. asked RT to place on cpap but not done yet 11/17: Patient remains on the vent, awake and following commands. H&H stable s/p 2units PRBCs. GI on consult, no intervention at this time. Will continue protonix gtt and serial H&H Q6hrs. Keep patient NPO for now, D5w added for hypernatremia and NPO status. Plan for IVC filter placement today by Vascular. 11/18: Patient is s/p IVC filter. H&H continue to trend down, hbg 6.1 this am, 1 unit of PRBCs ordered. Plan for possible EGD today by GI. Keep patient NPO, continue PPI drip and serial H&H Q6hrs. Electrolytes repleted, repeat lab in the am 11/19: S/p EGD- larger duodenal ulcer noted, see operative note. GI recommendat ions noted also noted. H&H stable this am. Keep patient on protonix gtt for now. Will keep patient NPO, continue IVF and serial H&H for now. Electrolytes repleted, repeat labs in the am 2/3: Very agitated and restless this am, fentanyl gtt resumed. Patient remains on protonix gtt, H&H remains stable. Will switch protonix gtt to IV BID, continue carafate and okay to resume meds at this time. Will F/u with GI to see if TF can be resumed. Gamble was reinserted overnight for retention. Electrolytes repleted, repeat in the am. Plan for possible PST today for possible extubation per CCM. 11/21: Patient is now on seroquel and patient's home buspar resumed. Patient more calm this morning, fentanyl gtt is off. H&H remains stable and patient is tolerating TF. Patient had a runs of Vtach/PVCs this am, BB added per Cardio. Continue daily PS and wean trial for possible extubation. 11/22: Back on fentanyl gtt overnight , RASS o to -1, following commands. Patient failed PST this am due to increased work of breathing and low SPO2, ABG pending. Patient is also with worsen pitting edema, lasix is still on hold. Will discuss with cardio and CCM to possibly resume lasix. 11/23: MARIA DEL CARMEN overnight. Patient failed PST again this am. Per CCM plan for possible trach and PEG, hold off on IV lasix for now. General surgery consulted and family is aware of possible Trach and PEG. 11/24: Trach/PEG pending this week, continue SBT/SAT as tolerated. No acute events reported overnight. 11/25: Patient was n.p.o. overnight and will remain n.p.o. tonight for trach/PEG tomorrow morning. She failed to support trial again. KUB obtained due to distended belly. 11/26: Patient scheduled for tracheostomy and PEG tube placement today, has been n.p.o. since midnight. No acute events reported overnight. [facility] ordered rosalinda thicone scheduled. 11/27: No acute events reported overnight, patient received trach/PEG yesterday. Has been on feedings since last night. Still awaiting LTAC placement. 11/28: Patient magnesium repleted, repeat a.m. labs, SBT 11/29: Patient complains of chest pain but ECG obtained which showed no acute findings, ordered troponin. Patient failed CPAP yesterday and was trialed again today. levophed was restarted but will aggressively wean 11/30: Patient failed SBT. Continue supportive care. Started gabapentin today 12/01: MARIA DEL CARMEN overnight. Continue daily PST. Case management to arrange possible placement 12/02: Report of dark stools overnight, patient is hemodynamically stable. H&H stable, patient is on PPI. Will continue to trend H&H. Continue daily PST as tolerated. Awaiting LTAC vs SNF placement. 12/03: Hypotensive overnight, requiring low dose pressors. S/p X3 days of gentle diurese. Will continue to monitor, wean off pressors as tolerated for MAP of 65. Patient Failed PST yesterday, case management to follow up with insurance for possible LTAC placement. Continue daily PST as tolerated. PT eval and treat ordered. 12/04: Increased agitation and anxiety overnight, remains on buspar and seroquel, trazadone added to promote rest. Patient is now working with PT, keep patient engage and awake during the day so she can rest at night. No BM for over 5 days, BR was adjusted. Patient did not tolerate PST again yesterday, continue daily PST as tolerated. Continue to titrate pressor for MAP above 65. Pending possible LTAC placement, case management to arrange. 12/05: Still not getting much rest overnight, will add melatonin for sleep. Continue to engage patient during the day and promote rest at night. TF was held due to concern for possible bleeding, H&H remains stable and stools normal this am. Resume TF and continue PPI and carafate. Remains on low dose levophed, titrate as tolerated. Continue daily PST. Possible LTAC placement, awaiting approval. 12/06: MARIA DEL CARMEN overnight. Patient rested overnight. Continue supportive measures. Daily PST as tolerated. Awaiting possible LTAC placement 12/07: MARIA DEL CARMEN overnight. Plan for Tpiece trial today. Continue current supportive measures. Possible LTAC placement 12/08: Patient placed on pressure support trial again today, started on Xanax, no acute events reported overnight. Awaiting insurance approval for LTAC. 12/09: Levophed discontinued, LTAC transfer denied, started on midodrine and Lasix, ultrasound chest pending, started on Xanax 0.[address] De León updated family at bedside today. Started on Dilaudid every 3 hours as needed. 12/10: Patient placed on CPAP trial this morning, no acute events reported overnight. Will order ultrasound-guided thoracentesis. 12/11: Patient had a thoracentesis today, will decrease Xanax dosage and continue midodrine and diuresing. Patient failed CPAP today. 12/12: Patient not tolerate CPAP trials today, no acute events reported overnight 12/13: No acute events overnight. continue PSV trials as tolerated. Daughter updated at bedside 12/14: Patient noted to be anemic today, worsened gastric occult. Patient seems to be oversedated therefore Xanax changed to as needed and fentanyl patch discontinued. We will continue to monitor hyponatremia. 12/15: MARIA DEL CARMEN overnight. s/p 1unit of PRBCs, H&H stable this am, no signs of any active bleeding. Continue daily PST as tolerated. Awaiting placement. 12/16: Hypertensive this am, Midodrine decreased. Continue daily PST. MARIA DEL CARMEN overnight Assessment and Plan #Septic Shock POA #Bilateral Pneumonia #Bacteremia - Presented with fevers, leukocytosis, and hypotension - COVID PCR negative - 11/04 Bcult with 3/4 group B strep bacteremia - Repeat Bculture NGTD - 11/04 2D Echo with no evidence of vegetation - ID on consult, appreciate recommendations - Patient completed IV Abx course - Trend CBC #Acute Hypoxic Respiratory Failure 11/19 #Bilateral Pleural Effusion #Right Pneumothorax-resolved #Bilateral Pneumonia - COVID PCR negative - CXR shows Bilateral opacities, may be volume overloaded - [facility] consulted, appreciate recommendations - Intubated on 11/06, ETT exchanged on 11/11 - 11/11 Bronchoscopy--Complicated by spontaneous pneumothorax - 11/11 S/p chest tube placement for right pneumothorax, removed by patient on 11/15 - 11/26 s/p Tracheostomy and PEGtube placement - 12/11 US thoracentesis due to moderate pleural effusion-1L removed - This am Vent Setting:A/C-30%,6,14,400 - On PO Lasix - Continue Nebs treatment - Continue daily PST as tolerated - VAP bundle addressed - Aspiration precaution HOB above 30 - PRN ABG and CXR per CCM - Continue SPO2 monitoring for SPO2 goal above 92% #CHF- EF 30-35% with PPM #Hypotension #Septic Kristian-resolved - SR on the monitor, HR 70-90s - 11/04 Echo-EF 30-35% - Now on Midodrine TID - Continue beta-charleen - Not on aspirin due to allergy - Statins resumed - Continue blood pressure monitor per protocol - Maintain MAP above 65 - Cardiology signed off #Acute Microcytic Anemia #Acute Blood Loss-resolved #Acute GI Bleed-resolved - s/p a total of 6units of PRBCs since admit - H&H [place] this am - 11/18 EGD- Large cratered ulcer in the posterior duodenal bulb about 2 cm in diameter. Visible vessel present. Mild active oozing from the ulcer bed. A total of 3 injections were performed around the ulcer for a total of 2.5 cc of dilute epinephrine and hemostasis was obtained.--> See full report - GI signed off - Stool occult still positive, no signs of any active bleeding - Continue PPI and Carafate - Continue to trend CBC - Transfuse for H&H less than 7 - Hold AC for now #Hyponatremia - Back on PO lasix - Strict intake and output - Continue to monitor and replace electrolytes as needed - Trend BMP,mag, & phosp #Urinary Retention - Gamble reinserted on 11/19 for retention - Keep gamble for now #Acute DVT in RLE - BLE doppler + Acute DVT in the right external iliac vein, common femoral vein, and superior aspect of femoral vein - Was on Therapeutic Lovenox- held to due GI Bleed - 11/17 s/p IVC filter placement by Vascular Surg #Agitation #Acute Encephalopathy-Resolved - Awake and following commands - Continue Buspar and seroquel - PRN Xanax for anxiety - CT head noted - Neurology consulted - PRN analgesia for pain management #Transaminitis/Shock Liver - Probably due to bacteria/spetic shock - Continue to Trend LFTs #Endo: h/o DM and hypothyroidism - Continue home Synthroid - Accu-Cheks every 6 - Avoid hypoglycemia The high probability of a clinically significant, sudden or life threatening deterioration of the [multi] system(s) required my full and direct attention, intervention and personal management. The aggregate critical care time was [60] minutes. This time is in addition to time spent performing reported procedures but includes the following: [x] Data Review and interpretation [x] Patient assessment and monitoring of vital signs [x] Documentation [x] Medication orders and management Disposition Plan: ICU Total Time Spent with Patient (Minutes): 60 History Interval history: Patient seen and examined at the bedside. Remains stable on the vent, AAO, following commands. MARIA DEL CARMEN overnight Hospitalist Physical - Constitutional Vitals: Temp Pulse Resp BP Pulse Ox 99.9 F H 93 H 21 148/61 94 12/16/21 08:00 12/16/21 08:30 12/16/21 08:30 12/16/21 08:30 12/16/21 08:30 General appearance: Present: no acute distress, other (Trah and on the vent) - EENT Eyes: Present: PERRL ENT: hearing intact - Neck Neck: Present: normal ROM - Respiratory Respiratory effort: normal Respiratory: bilateral: rhonchi - Cardiovascular Rhythm: regular Heart Sounds: Present: S1 & S2 - Extremities Extremities: no ischemia, pulses intact, pulses symmetrical Extremity abnormal: edema - Peripheral Assessment Left Upper Extremity Edema Type: Pitting Edema Degree: 3+ Capillary Refill: < 3 seconds Skin Temperature: Warm Generalized Edema Type: Non-pitting Edema Degree: 2+ Capillary Refill: < 3 seconds Skin Temperature: Warm Peripheral Pulses: within normal limits - Abdominal General gastrointestinal: soft, non-distended, normal bowel sounds - Integumentary Integumentary: Present: warm, dry - Psychiatric Psychiatric: appropriate mood/affect, cooperative - Neurologic Neurologic: moves all extremities - Allied Health Allied health notes reviewed: nursing, case management HEART Score - HEART Score Troponin: Troponin T 0.045 ng/mL (0.00-0.029) H 11/29/21 20:15 Results - Labs CBC & Chem 7: 12/15/21 07:00 12/15/21 07:00 Labs: Laboratory Last Values WBC 12.3 K/mm3 (4.5-11.0) H 12/15/21 07:00 RBC 3.27 M/mm3 (3.65-5.03) L 12/15/21 07:00 Hgb 8.8 gm/dl (10.1-14.3) L 12/15/21 07:00 Hct 27.5 % (30.3-42.9) L D 12/15/21 07:00 MCV 84 fl (79-97) 12/15/21 07:00 MCH 27 pg (28-32) L 12/15/21 07:00 MCHC 32 % (30-34) 12/15/21 07:00 RDW 19.0 % (13.2-15.2) H 12/15/21 07:00 Plt Count 241 K/mm3 (140-440) 12/15/21 07:00 Add Manual Diff Complete 11/16/21 15:25 Total Counted 100 11/16/21 15:25 Seg Neutrophils % [employer] 11/06/21 15:50 Seg Neuts % (Manual) 87.0 % (40.0-70.0) H 11/16/21 15:25 Band Neutrophils % 0 % 11/16/21 15:25 Lymphocytes % (Manual) 8.0 % (13.4-35.0) L 11/16/21 15:25 Reactive Lymphs % (Man) 0 % 11/16/21 15:25 Monocytes % (Manual) 5.0 % (0.0-7.3) 11/16/21 15:25 Eosinophils % (Manual) 0 % (0.0-4.3) 11/16/21 15:25 Basophils % (Manual) 0 % (0.0-1.8) 11/16/21 15:25 Metamyelocytes % 0 % 11/16/21 15:25 Myelocytes % 0 % 11/16/21 15:25 Promyelocytes % 0 % 11/16/21 15:25 Blast Cells % 0 % 11/16/21 15:25 Nucleated RBC % Not Reportable 11/16/21 15:25 Seg Neutrophils # Man 15.0 K/mm3 (1.8-7.7) H 11/16/21 15:25 Band Neutrophils # 0.0 K/mm3 11/16/21 15:25 Lymphocytes # (Manual) 1.4 K/mm3 (1.2-5.4) 11/16/21 15:25 Abs React Lymphs (Man) 0.0 K/mm3 11/16/21 15:25 Monocytes # (Manual) 0.9 K/mm3 (0.0-0.8) H 11/16/21 15:25 Eosinophils # (Manual) 0.0 K/mm3 (0.0-0.4) 11/16/21 15:25 Basophils # (Manual) 0.0 K/mm3 (0.0-0.1) 11/16/21 15:25 Metamyelocytes # 0.0 K/mm3 11/16/21 15:25 Myelocytes # 0.0 K/mm3 11/16/21 15:25 Promyelocytes # 0.0 K/mm3 11/16/21 15:25 Blast Cells # 0.0 K/mm3 11/16/21 15:25 WBC Morphology Not Reportable 11/16/21 15:25 Hypersegmented Neuts Not Reportable 11/16/21 15:25 Hyposegmented Neuts Not Reportable 11/16/21 15:25 Hypogranular Neuts Not Reportable 11/16/21 15:25 Smudge Cells Not Reportable 11/16/21 15:25 Toxic Granulation Not Reportable 11/16/21 15:25 Toxic Vacuolation Not Reportable 11/16/21 15:25 Dohle Bodies Not Reportable 11/16/21 15:25 Pelger-Huet Anomaly Not Reportable 11/16/21 15:25 Irina Rods Not Reportable 11/16/21 15:25 Platelet Estimate Consistent w auto 11/16/21 15:25 Clumped Platelets Rare 11/16/21 15:25 Plt Clumps, EDTA Not Reportable 11/16/21 15:25 Large Platelets Not Reportable 11/16/21 15:25 Giant Platelets Not Reportable 11/16/21 15:25 Platelet Satelliting Not Reportable 11/16/21 15:25 Plt Morphology Comment Not Reportable 11/16/21 15:25 RBC Morphology Not Reportable 11/16/21 15:25 Dimorphic RBCs Not Reportable 11/16/21 15:25 Polychromasia Not Reportable 11/16/21 15:25 Hypochromasia 2+ 11/16/21 15:25 Poikilocytosis Not Reportable 11/16/21 15:25 Anisocytosis 2+ 11/16/21 15:25 Microcytosis Not Reportable 11/16/21 15:25 Macrocytosis Not Reportable 11/16/21 15:25 Spherocytes Not Reportable 11/16/21 15:25 Pappenheimer Bodies Not Reportable 11/16/21 15:25 Sickle Cells Not Reportable 11/16/21 15:25 Target Cells 2+ 11/16/21 15:25 Tear Drop Cells Not Reportable 11/16/21 15:25 Ovalocytes Not Reportable 11/16/21 15:25 Helmet Cells Not Reportable 11/16/21 15:25 Odonnell-Gattman Bodies Not Reportable 11/16/21 15:25 [place] Rings Not Reportable 11/16/21 15:25 Malcom Cells Not Reportable 11/16/21 15:25 Bite Cells Not Reportable 11/16/21 15:25 Crenated Cell Not Reportable 11/16/21 15:25 Elliptocytes Not Reportable 11/16/21 15:25 Acanthocytes (Spur) Not Reportable 11/16/21 15:25 Rouleaux Not Reportable 11/16/21 15:25 Hemoglobin C Crystals Not Reportable 11/16/21 15:25 Schistocytes Not Reportable 11/16/21 15:25 Malaria parasites Not Reportable 11/16/21 15:25 Godfrey Bodies Not Reportable 11/16/21 15:25 Hem Pathologist Commnt No 11/16/21 15:25 PT 16.9 Sec. (12.2-14.9) H 11/26/21 05:00 INR 1.24 (0.87-1.13) H 11/26/21 05:00 APTT 29.2 Sec. (24.2-36.6) 11/26/21 05:00 D-Dimer 2655.00 ng/mlDDU (0-234) H 11/11/21 04:28 ABG pH 7.449 pH Units (7.350-7.450) 11/21/21 16:00 ABG pCO2 32.1 mm Hg 11/21/21 16:00 ABG pO2 114.2 mm Hg (80.0-90.0) H 11/21/21 16:00 ABG HCO3 21.8 mmol/L (20.0-26.0) 11/21/21 16:00 ABG O2 Saturation 98.3 % (95.0-99.0) 11/21/21 16:00 ABG O2 Content 12.5 (0.0-44) 11/21/21 16:00 ABG Base Excess -1.7 mmol/L (-2.0-3.0) 11/21/21 16:00 ABG Hemoglobin 9.1 gm/dl (12.0-16.0) L 11/21/21 16:00 ABG Carboxyhemoglobin 1.9 % (0.0-5.0) 11/21/21 16:00 ABG Methemoglobin 0.5 % (0.0-1.5) 11/21/21 16:00 Oxyhemoglobin 96.0 % (95.0-99.0) 11/21/21 16:00 FiO2 30 % 11/21/21 16:00 Sodium 134 mmol/L (137-145) L 12/15/21 07:00 Potassium 3.7 mmol/L (3.6-5.0) 12/15/21 07:00 Chloride 95.7 mmol/L (98-107) L 12/15/21 07:00 Carbon Dioxide 27 mmol/L (22-30) 12/15/21 07:00 Anion Gap 15 mmol/L 12/15/21 07:00 BUN 28 mg/dL (7-17) H 12/15/21 07:00 Creatinine 0.6 mg/dL (0.6-1.2) 12/15/21 07:00 Estimated GFR > 60 ml/min 12/15/21 07:00 BUN/Creatinine Ratio 47 % 12/15/21 07:00 Glucose 129 mg/dL (65-100) H 12/15/21 07:00 POC Glucose 121 mg/dL (70-105) H 12/16/21 05:24 Lactic Acid 3.70 mmol/L (0.7-2.0) H* 11/03/21 22:32 Calcium 8.2 mg/dL (8.4-10.2) L 12/15/21 07:00 Phosphorus 3.50 mg/dL (2.5-4.5) 12/08/21 04:00 Magnesium 2.20 mg/dL (1.7-2.3) 12/08/21 04:00 Ferritin 52.6 ng/mL (10.0-200.0) 11/05/21 06:11 Total Bilirubin 0.50 mg/dL (0.1-1.2) 11/17/21 05:56 Direct Bilirubin < 0.2 mg/dL (0-0.2) 11/11/21 04:28 Indirect Bilirubin 0.1 mg/dL 11/11/21 04:28 AST 36 units/L (5-40) 11/17/21 05:56 ALT 47 units/L (7-56) 11/17/21 05:56 Alkaline Phosphatase 107 units/L (35-129) 11/17/21 05:56 Ammonia 42.0 umol/L (25-60) 11/10/21 14:08 Lactate Dehydrogenase 187 units/L (91-180) H 11/05/21 06:11 Troponin T 0.045 ng/mL (0.00-0.029) H 11/29/21 20:15 C-Reactive Protein 22.20 mg/dL (0.00-1.30) H 11/05/21 06:11 NT-Pro-B Natriuret Pep 7895 pg/mL (0-900) H 11/03/21 22:32 Total Protein 5.1 g/dL (6.3-8.2) L 11/17/21 05:56 Albumin 2.2 g/dL (3.9-5) L 11/17/21 05:56 Albumin/Globulin Ratio 0.8 % 11/17/21 05:56 Triglycerides 59 mg/dL (2-149) 11/29/21 20:15 Cholesterol 74 mg/dL (50-199) 11/29/21 20:15 LDL Cholesterol Direct 25 mg/dL (50-130) L 11/29/21 20:15 HDL Cholesterol 41 mg/dL (40-59) 11/29/21 20:15 Cholesterol/HDL Ratio 1.80 % 11/29/21 20:15 Vitamin B12 1823 pg/mL (211-911) H 11/10/21 14:08 TSH 1.510 mlU/mL (0.270-4.200) 11/10/21 14:08 Urine Color Yellow (Yellow) 11/11/21 09:00 Urine Turbidity Slightly-cloudy (Clear) 11/11/21 09:00 Urine pH 5.0 (5.0-7.0) 11/11/21 09:00 Ur Specific [place] 1.009 (1.003-1.030) 11/11/21 09:00 Urine Protein <15 mg/dl mg/dL (Negative) 11/11/21 09:00 Urine Glucose (UA) Neg mg/dL (Negative) 11/11/21 09:00 Urine Ketones Neg mg/dL (Negative) 11/11/21 09:00 Urine Blood Mod (Negative) 11/11/21 09:00 Urine Nitrite Neg (Negative) 11/11/21 09:00 Urine Bilirubin Neg (Negative) 11/11/21 09:00 Urine Urobilinogen < 2.0 mg/dL (<2.0) 11/11/21 09:00 Ur Leukocyte Esterase Neg (Negative) 11/11/21 09:00 Urine WBC (Auto) < 1.0 /HPF (0.0-6.0) 11/11/21 09:00 Urine RBC (Auto) < 1.0 /HPF (0.0-6.0) 11/11/21 09:00 Coronavirus (PCR) Negative (Negative) 11/10/21 08:30 Blood Type O POSITIVE 12/14/21 10:30 Antibody Screen Negative 12/14/21 10:30 Crossmatch See Detail 12/14/21 10:30 Gamble/IV: Voiding Method Indwelling Catheter Active Medications - Current Medications Current Medications: Generic Name Dose Route Start Last Admin Trade Name Freq PRN Reason Stop Dose Admin Acetaminophen 650 mg 12/14/21 04:12 12/14/21 04:21 Acetaminophen 325 Mg/10.15 Ml Oral Liqd Unit Dose FEEDTUBE 650 mg Q6H PRN Administration Non Cardiac Pain or Temp>100.5 Hydrocodone Bitart/Acetaminophen 1 each 11/21/21 10:00 12/15/21 21:31 Hydrocodone/Acetaminophen 10-325mg Tab FEEDTUBE 1 each TID YOSSI Administration Alprazolam 0.25 mg 12/14/21 09:00 12/15/21 21:31 Alprazolam 0.25 Mg Tab PO 0.25 mg Q8H PRN Administration Agitation Lipase/Protease/Amylase 1 each 11/08/21 11:09 Lipase 10,500/Protease 25,000/Amylase 43,750 (Units) Dr Cap FEEDTUBE PRN PRN For Clogged Feeding Tube Buspirone HCl 7.5 mg 11/17/21 22:00 12/15/21 21:30 Buspirone 5 Mg Tab PO 7.5 mg BID YOSSI Administration Dextrose 0 ml 11/10/21 10:52 11/21/21 16:27 Dextrose 10% *Hypoglycemia IV 50 ml PRN PRN Administration Hypoglycemia Docusate Sodium 100 mg 12/04/21 11:00 12/15/21 21:30 Docusate Sodium 100 Mg/10 Ml Oral Liqd PO 100 mg BID YOSSI Administration Furosemide 20 mg 12/09/21 10:00 12/15/21 10:06 Furosemide 20 Mg Tab PO 20 mg QDAY YOSSI Administration Gabapentin 100 mg 12/01/21 10:00 12/15/21 10:06 Gabapentin 100 Mg Cap PO 100 mg QDAY YOSSI Administration Hydromorphone HCl 0.5 mg 12/08/21 20:06 12/13/21 18:00 Hydromorphone 1 Mg/1 Ml Inj IV 0.5 mg Q3H PRN Administration Pain, Moderate (4-6) Hydrophilic Ointment 1 applic 11/06/21 04:02 Lip Therapy Vaseline TP Q2HR PRN Dry Lips Lansoprazole 30 mg 11/24/21 22:00 12/15/21 21:31 Lansoprazole 30 Mg Solutab FEEDTUBE 30 mg BID YOSSI Administration Levothyroxine Sodium 125 mcg 11/05/21 07:00 12/16/21 06:39 Levothyroxine 125 Mcg Tab PO 125 mcg DAILY@0600 YOSSI Administration Melatonin 5 mg 12/05/21 22:00 12/15/21 21:31 Melatonin 5 Mg Tab PO 5 mg QHS YOSSI Administration Metoprolol Tartrate 6.25 mg 12/08/21 22:52 12/15/21 21:30 Metoprolol Tartrate 25 Mg Tab PO 6.25 mg BID YOSSI Administration Midodrine 10 mg 12/09/21 08:00 12/15/21 16:27 Midodrine 5 Mg Tab PO 10 mg TID@0800,1200,1600 YOSSI Administration Multi-Ingred Cream/Lotion/Oil/Oint 1 applic 11/06/21 04:02 Mineral Oil/Petrolatum, White Ophth Oint 3.5 Gm OU Q4HR PRN Dry Eye(s) Nitroglycerin 0.4 mg 11/30/21 11:36 Nitroglycerin 0.4 Mg Tab Subl SL .Q5MIN PRN Chest Pain Ondansetron HCl 4 mg 12/05/21 10:00 12/08/21 05:17 Ondansetron 4 Mg/2 Ml Inj IV 4 mg Q8H PRN Administration Nausea And Vomiting Polyethylene Glycol 17 gm 12/02/21 10:00 12/15/21 10:07 Polyethylene Glycol 3350 17 Gm Powder PO Not Given QDAY YOSSI Pravastatin Sodium 20 mg 11/18/21 22:00 12/15/21 21:32 Pravastatin 20 Mg Tab PO 20 mg QHS YOSSI Administration Quetiapine Fumarate 50 mg 12/01/21 22:00 12/15/21 21:30 Quetiapine 25 Mg Tab PO 50 mg QHS YOSSI Administration Senna 17.6 mg 11/08/21 22:00 12/15/21 21:31 Sennosides Oral Liqd 8.8 Mg/5 Ml Oral Liqd PO 17.6 mg Q12HR YOSSI Administration Simple Syrup 15 ml 11/08/21 11:09 Simple Syrup 15 Ml FEEDTUBE PRN PRN Hypoglycemia Simple Syrup 30 ml 11/08/21 11:09 Simple Syrup 15 Ml FEEDTUBE PRN PRN Hypoglycemia Sodium Bicarbonate 325 mg 11/08/21 11:09 Sodium Bicarbonate 325 Mg Tab FEEDTUBE PRN PRN For Clogged Feeding Tube Sodium Chloride 10 ml 11/04/21 10:00 12/15/21 21:32 Sodium Chloride 0.9% 10 Ml Flush Syringe IV 10 ml BID YOSSI Administration Sodium Chloride 10 ml 11/04/21 02:03 Sodium Chloride 0.9% 10 Ml Flush Syringe IV PRN PRN LINE FLUSH Sucralfate 1 gm 11/18/21 16:30 12/16/21 06:39 Sucralfate 1 Gm/10 Ml Oral Liqd PO 1 gm ACHS YOSSI Administration Trazodone HCl 50 mg 12/04/21 22:00 12/15/21 21:30 Trazodone 50 Mg Tab PO 50 mg QHS YOSSI Administration Nutrition/Malnutrition Assess - Dietary Evaluation Nutrition/Malnutrition Findings: Nutrition Notes Start: 11/04/21 17:16 Freq: Status: Active Protocol: Document 12/15/21 15:12 ISABELL (Rec: 12/15/21 15:41 ISABELL [id number]) Nutrition Notes Initial or Follow up Reassessment Current Diagnosis Diabetes,Sepsis,Hypertension, Heart Failure,Respiratory Failure Other Pertinent Diagnosis Bilateral Pneumonia, L-Pleural Effusion, Pulmonary HTN, HFrEF, GI Bleed. Current Diet TF-Vital AF 1.2 @ 40 ml/hr ( since 11/30) Labs/Tests 12/15: Na 134, Cl 95.7, BUN 28 , Glu 129, Ca 8.2. Pertinent Medications 12/15: Levothyroxine, others nutritionally unremarkable. Height 5 ft Weight 62.4 kg Heath Body Weight (kg) 45.45 BMI 26.9 Weight change and time frame No body weight change reported in 1 month. Weight Status Appropriate Subjective/Other Information RD consult for routine TF tolerance. TF continues as prescribed, well tolerated, no gastric residues, according to RN notes. Pt continues on Mechanical Ventilation. Pt is having difficulties for discharge, due to [facility] refusing transfer at the time. Percent of energy/protein needs met: Prescribed Vital AF 1.2 Tamir @ 40 ml/hr provides for energy/ protein needs (1,150 Kcal/72 g ) during LOS, 95% Kcal; 96% AA . Burn Absent Trauma Absent GI Symptoms Other Difficulty In Swallowing,Chewing Skin Integrity/Comment Lower Extremities Pressure Ulcer. Current % PO Other Minimum of two criteria No #1 Nutrition Diagnosis Inadequate oral intake Diagnosis Progress(for reassessment Continues documentation) Is patient on ventilator? Yes Is Patient Ambulatory and/or Out of Bed No REE-([facility]-confined to bed) [phone] Calculation Used for Recommendations [facility] Additional Notes Protein: 1.2-2 g/Kg; 75-125 g/ day. Fluids: 1 ml/Kcal, or as per MD. Nutrition Intervention Nutrition Support: Continue Vital AF 1.2 Tamir @ 40 ml/hr. Flush: 65 ml water Q 4 hr, or as per MD. Kcal 1,150 Protein (gm) 72 Carbohydrates (gm) 106 Fat (gm) 52 Fluid (mL) 779 Fiber (gm) 5 % RDI: 95% Kcal; 96% AA. Goal #1 Provide at least 75% of energy /protein needs through Enteral Feeding during LOS. Goal #2 Maintain body weight within +/ -3% of admission body weight during LOS. Follow-Up By: 12/22/21 Additional Comments Continue monitoring TF tolerance and BM. <LEAH ALFONSO E - Last Filed: 12/17/21 07:34> Assessment and Plan Assessment and plan: I saw and evaluated the patient. I agree with the findings and the plan of care as documented in the Nurse Practitioner's~note, with the following corrections and additions. Discussed with at bed side. Discussed expectations, anemia and positive occult blood including respirator and plan of care Hospitalist Physical - Constitutional Vitals: Temp Pulse Resp BP Pulse Ox 98.3 F 75 21 119/39 98 12/17/21 06:00 12/17/21 06:00 12/17/21 06:00 12/17/21 06:00 12/17/21 06:00 HEART Score - HEART Score Troponin: Troponin T 0.045 ng/mL (0.00-0.029) H 11/29/21 20:15 Results - Labs CBC & Chem 7: 12/17/21 04:25 12/17/21 04:25 Labs: Laboratory Last Values WBC 12.3 K/mm3 (4.5-11.0) H 12/17/21 04:25 RBC 2.16 M/mm3 (3.65-5.03) L 12/17/21 04:25 Hgb 6.0 gm/dl (10.1-14.3) L 12/17/21 04:25 Hct 18.1 % (30.3-42.9) L* D 12/17/21 04:25 MCV 84 fl (79-97) 12/17/21 04:25 MCH 28 pg (28-32) 12/17/21 04:25 MCHC 33 % (30-34) 12/17/21 04:25 RDW 19.4 % (13.2-15.2) H 12/17/21 04:25 Plt Count 174 K/mm3 (140-440) 12/17/21 04:25 Add Manual Diff Complete 11/16/21 15:25 Total Counted 100 11/16/21 15:25 Seg Neutrophils % [employer] 11/06/21 15:50 Seg Neuts % (Manual) 87.0 % (40.0-70.0) H 11/16/21 15:25 Band Neutrophils % 0 % 11/16/21 15:25 Lymphocytes % (Manual) 8.0 % (13.4-35.0) L 11/16/21 15:25 Reactive Lymphs % (Man) 0 % 11/16/21 15:25 Monocytes % (Manual) 5.0 % (0.0-7.3) 11/16/21 15:25 Eosinophils % (Manual) 0 % (0.0-4.3) 11/16/21 15:25 Basophils % (Manual) 0 % (0.0-1.8) 11/16/21 15:25 Metamyelocytes % 0 % 11/16/21 15:25 Myelocytes % 0 % 11/16/21 15:25 Promyelocytes % 0 % 11/16/21 15:25 Blast Cells % 0 % 11/16/21 15:25 Nucleated RBC % Not Reportable 11/16/21 15:25 Seg Neutrophils # Man 15.0 K/mm3 (1.8-7.7) H 11/16/21 15:25 Band Neutrophils # 0.0 K/mm3 11/16/21 15:25 Lymphocytes # (Manual) 1.4 K/mm3 (1.2-5.4) 11/16/21 15:25 Abs React Lymphs (Man) 0.0 K/mm3 11/16/21 15:25 Monocytes # (Manual) 0.9 K/mm3 (0.0-0.8) H 11/16/21 15:25 Eosinophils # (Manual) 0.0 K/mm3 (0.0-0.4) 11/16/21 15:25 Basophils # (Manual) 0.0 K/mm3 (0.0-0.1) 11/16/21 15:25 Metamyelocytes # 0.0 K/mm3 11/16/21 15:25 Myelocytes # 0.0 K/mm3 11/16/21 15:25 Promyelocytes # 0.0 K/mm3 11/16/21 15:25 Blast Cells # 0.0 K/mm3 11/16/21 15:25 WBC Morphology Not Reportable 11/16/21 15:25 Hypersegmented Neuts Not Reportable 11/16/21 15:25 Hyposegmented Neuts Not Reportable 11/16/21 15:25 Hypogranular Neuts Not Reportable 11/16/21 15:25 Smudge Cells Not Reportable 11/16/21 15:25 Toxic Granulation Not Reportable 11/16/21 15:25 Toxic Vacuolation Not Reportable 11/16/21 15:25 Dohle Bodies Not Reportable 11/16/21 15:25 Pelger-Huet Anomaly Not Reportable 11/16/21 15:25 Irina Rods Not Reportable 11/16/21 15:25 Platelet Estimate Consistent w auto 11/16/21 15:25 Clumped Platelets Rare 11/16/21 15:25 Plt Clumps, EDTA Not Reportable 11/16/21 15:25 Large Platelets Not Reportable 11/16/21 15:25 Giant Platelets Not Reportable 11/16/21 15:25 Platelet Satelliting Not Reportable 11/16/21 15:25 Plt Morphology Comment Not Reportable 11/16/21 15:25 RBC Morphology Not Reportable 11/16/21 15:25 Dimorphic RBCs Not Reportable 11/16/21 15:25 Polychromasia Not Reportable 11/16/21 15:25 Hypochromasia 2+ 11/16/21 15:25 Poikilocytosis Not Reportable 11/16/21 15:25 Anisocytosis 2+ 11/16/21 15:25 Microcytosis Not Reportable 11/16/21 15:25 Macrocytosis Not Reportable 11/16/21 15:25 Spherocytes Not Reportable 11/16/21 15:25 Pappenheimer Bodies Not Reportable 11/16/21 15:25 Sickle Cells Not Reportable 11/16/21 15:25 Target Cells 2+ 11/16/21 15:25 Tear Drop Cells Not Reportable 11/16/21 15:25 Ovalocytes Not Reportable 11/16/21 15:25 Helmet Cells Not Reportable 11/16/21 15:25 Odonnell-Gattman Bodies Not Reportable 11/16/21 15:25 [place] Rings Not Reportable 11/16/21 15:25 [place] Cells Not Reportable 11/16/21 15:25 Bite Cells Not Reportable 11/16/21 15:25 Crenated Cell Not Reportable 11/16/21 15:25 Elliptocytes Not Reportable 11/16/21 15:25 Acanthocytes (Spur) Not Reportable 11/16/21 15:25 Rouleaux Not Reportable 11/16/21 15:25 Hemoglobin C Crystals Not Reportable 11/16/21 15:25 Schistocytes Not Reportable 11/16/21 15:25 Malaria parasites Not Reportable 11/16/21 15:25 Godfrey Bodies Not Reportable 11/16/21 15:25 Hem Pathologist Commnt No 11/16/21 15:25 PT 16.9 Sec. (12.2-14.9) H 11/26/21 05:00 INR 1.24 (0.87-1.13) H 11/26/21 05:00 APTT 29.2 Sec. (24.2-36.6) 11/26/21 05:00 D-Dimer 2655.00 ng/mlDDU (0-234) H 11/11/21 04:28 ABG pH 7.479 pH Units (7.350-7.450) H 12/16/21 20:52 ABG pCO2 37.5 mm Hg 12/16/21 20:52 ABG pO2 79.3 mm Hg (80.0-90.0) L 12/16/21 20:52 ABG HCO3 27.3 mmol/L (20.0-26.0) H 12/16/21 20:52 ABG O2 Saturation 97.0 % (95.0-99.0) 12/16/21 20:52 ABG O2 Content 12.3 (0.0-44) 12/16/21 20:52 ABG Base Excess 3.6 mmol/L (-2.0-3.0) H 12/16/21 20:52 ABG Hemoglobin 9.1 gm/dl (12.0-16.0) L 12/16/21 20:52 ABG Carboxyhemoglobin 1.6 % (0.0-5.0) 12/16/21 20:52 ABG Methemoglobin 0.5 % (0.0-1.5) 12/16/21 20:52 Oxyhemoglobin 94.9 % (95.0-99.0) L 12/16/21 20:52 FiO2 30 % 12/16/21 20:52 Sodium 132 mmol/L (137-145) L 12/17/21 04:25 Potassium 3.2 mmol/L (3.6-5.0) L 12/17/21 04:25 Chloride 112.0 mmol/L (98-107) H 12/17/21 04:25 Carbon Dioxide 22 mmol/L (22-30) 12/17/21 04:25 Anion Gap 1 mmol/L 12/17/21 04:25 BUN 32 mg/dL (7-17) H 12/17/21 04:25 Creatinine 0.6 mg/dL (0.6-1.2) 12/17/21 04:25 Estimated GFR > 60 ml/min 12/17/21 04:25 BUN/Creatinine Ratio 53 % 12/17/21 04:25 Glucose 122 mg/dL (65-100) H 12/17/21 04:25 POC Glucose 137 mg/dL (70-105) H 12/17/21 05:30 Lactic Acid 3.70 mmol/L (0.7-2.0) H* 11/03/21 22:32 Calcium 6.8 mg/dL (8.4-10.2) L D 12/17/21 04:25 Phosphorus 2.90 mg/dL (2.5-4.5) 12/16/21 10:21 Magnesium 1.60 mg/dL (1.7-2.3) L 12/16/21 10:21 Ferritin 52.6 ng/mL (10.0-200.0) 11/05/21 06:11 Total Bilirubin 0.50 mg/dL (0.1-1.2) 11/17/21 05:56 Direct Bilirubin < 0.2 mg/dL (0-0.2) 11/11/21 04:28 Indirect Bilirubin 0.1 mg/dL 11/11/21 04:28 AST 36 units/L (5-40) 11/17/21 05:56 ALT 47 units/L (7-56) 11/17/21 05:56 Alkaline Phosphatase 107 units/L (35-129) 11/17/21 05:56 Ammonia 42.0 umol/L (25-60) 11/10/21 14:08 Lactate Dehydrogenase 187 units/L (91-180) H 11/05/21 06:11 Troponin T 0.045 ng/mL (0.00-0.029) H 11/29/21 20:15 C-Reactive Protein 22.20 mg/dL (0.00-1.30) H 11/05/21 06:11 NT-Pro-B Natriuret Pep 7895 pg/mL (0-900) H 11/03/21 22:32 Total Protein 5.1 g/dL (6.3-8.2) L 11/17/21 05:56 Albumin 2.2 g/dL (3.9-5) L 11/17/21 05:56 Albumin/Globulin Ratio 0.8 % 11/17/21 05:56 Triglycerides 59 mg/dL (2-149) 11/29/21 20:15 Cholesterol 74 mg/dL (50-199) 11/29/21 20:15 LDL Cholesterol Direct 25 mg/dL (50-130) L 11/29/21 20:15 HDL Cholesterol 41 mg/dL (40-59) 11/29/21 20:15 Cholesterol/HDL Ratio 1.80 % 11/29/21 20:15 Vitamin B12 1823 pg/mL (211-911) H 11/10/21 14:08 TSH 1.510 mlU/mL (0.270-4.200) 11/10/21 14:08 Urine Color Yellow (Yellow) 11/11/21 09:00 Urine Turbidity Slightly-cloudy (Clear) 11/11/21 09:00 Urine pH 5.0 (5.0-7.0) 11/11/21 09:00 Ur Specific [place] 1.009 (1.003-1.030) 11/11/21 09:00 Urine Protein <15 mg/dl mg/dL (Negative) 11/11/21 09:00 Urine Glucose (UA) Neg mg/dL (Negative) 11/11/21 09:00 Urine Ketones Neg mg/dL (Negative) 11/11/21 09:00 Urine Blood Mod (Negative) 11/11/21 09:00 Urine Nitrite Neg (Negative) 11/11/21 09:00 Urine Bilirubin Neg (Negative) 11/11/21 09:00 Urine Urobilinogen < 2.0 mg/dL (<2.0) 11/11/21 09:00 Ur Leukocyte Esterase Neg (Negative) 11/11/21 09:00 Urine WBC (Auto) < 1.0 /HPF (0.0-6.0) 11/11/21 09:00 Urine RBC (Auto) < 1.0 /HPF (0.0-6.0) 11/11/21 09:00 Coronavirus (PCR) Negative (Negative) 11/10/21 08:30 Blood Type O POSITIVE 12/14/21 10:30 Antibody Screen Negative 12/14/21 10:30 Crossmatch See Detail 12/14/21 10:30 Gamble/IV: Voiding Method Indwelling Catheter Active Medications - Current Medications Current Medications: Generic Name Dose Route Start Last Admin Trade Name Freq PRN Reason Stop Dose Admin Acetaminophen 650 mg 12/14/21 04:12 12/16/21 13:34 Acetaminophen 325 Mg/10.15 Ml Oral Liqd Unit Dose FEEDTUBE 650 mg Q6H PRN Administration Non Cardiac Pain or Temp>100.5 Hydrocodone Bitart/Acetaminophen 1 each 11/21/21 10:00 12/16/21 21:26 Hydrocodone/Acetaminophen 10-325mg Tab FEEDTUBE 1 each TID YOSSI Administration Alprazolam 0.25 mg 12/14/21 09:00 12/15/21 21:31 Alprazolam 0.25 Mg Tab PO 0.25 mg Q8H PRN Administration Agitation Lipase/Protease/Amylase 1 each 11/08/21 11:09 Lipase 10,500/Protease 25,000/Amylase 43,750 (Units) Dr Lema FEEDTUBE PRN PRN For Clogged Feeding Tube Buspirone HCl 7.5 mg 11/17/21 22:00 12/16/21 21:25 Buspirone 5 Mg Tab PO 7.5 mg BID YOSSI Administration Dextrose 0 ml 11/10/21 10:52 11/21/21 16:27 Dextrose 10% *Hypoglycemia IV 50 ml PRN PRN Administration Hypoglycemia Docusate Sodium 100 mg 12/04/21 11:00 12/16/21 21:25 Docusate Sodium 100 Mg/10 Ml Oral Liqd PO 100 mg BID YOSSI Administration Furosemide 20 mg 12/09/21 10:00 12/16/21 10:09 Furosemide 20 Mg Tab PO 20 mg QDAY YOSSI Administration Gabapentin 100 mg 12/01/21 10:00 12/16/21 10:10 Gabapentin 100 Mg Cap PO 100 mg QDAY YOSSI Administration Hydromorphone HCl 0.5 mg 12/08/21 20:06 12/13/21 18:00 Hydromorphone 1 Mg/1 Ml Inj IV 0.5 mg Q3H PRN Administration Pain, Moderate (4-6) Hydrophilic Ointment 1 applic 11/06/21 04:02 Lip Therapy Vaseline TP Q2HR PRN Dry Lips Cefepime HCl 2 gm in 100 mls @ 200 mls/hr 12/16/21 14:00 12/17/21 03:51 Cefepime/Ns 2 Gm/100 Ml IV 200 mls/hr Q12H [facility] Administration Protocol Vancomycin HCl 1 gm in 250 mls @ 166.667 mls/hr 12/16/21 14:00 12/16/21 15:12 Vancomycin/Ns 1 Gm/250 Ml IV 166.667 mls/hr Q24H [facility] Administration Protocol Lansoprazole 30 mg 11/24/21 22:00 12/16/21 21:28 Lansoprazole 30 Mg Solutab FEEDTUBE 30 mg BID [facility] Administration Levothyroxine Sodium 125 mcg 11/05/21 07:00 12/17/21 06:18 Levothyroxine 125 Mcg Tab PO 125 mcg DAILY@0600 [facility] Administration Melatonin 5 mg 12/05/21 22:00 12/16/21 21:25 Melatonin 5 Mg Tab PO 5 mg QHS [facility] Administration Metoprolol Tartrate 6.25 mg 12/08/21 22:52 12/16/21 21:26 Metoprolol Tartrate 25 Mg Tab PO 6.25 mg BID [facility] Administration Midodrine 5 mg 12/16/21 20:00 12/16/21 21:27 Midodrine 5 Mg Tab PO Not Given 799,[phone] [facility] Multi-Ingred Cream/Lotion/Oil/Oint 1 applic 11/06/21 04:02 Mineral Oil/Petrolatum, White Ophth Oint 3.5 Gm OU Q4HR PRN Dry Eye(s) Nitroglycerin 0.4 mg 11/30/21 11:36 Nitroglycerin 0.4 Mg Tab Subl SL .Q5MIN PRN Chest Pain Ondansetron HCl 4 mg 12/05/21 10:00 12/08/21 05:17 Ondansetron 4 Mg/2 Ml Inj IV 4 mg Q8H PRN Administration Nausea And Vomiting Polyethylene Glycol 17 gm 12/02/21 10:00 12/16/21 10:09 Polyethylene Glycol 3350 17 Gm Powder PO 17 gm QDAY [facility] Administration Pravastatin Sodium 20 mg 11/18/21 22:00 12/16/21 21:26 Pravastatin 20 Mg Tab PO 20 mg QHS YOSSI Administration Quetiapine Fumarate 50 mg 12/01/21 22:00 12/16/21 21:25 Quetiapine 25 Mg Tab PO 50 mg QHS YOSSI Administration Senna 17.6 mg 11/08/21 22:00 12/16/21 21:25 Sennosides Oral Liqd 8.8 Mg/5 Ml Oral Liqd PO 17.6 mg Q12HR YOSSI Administration Simple Syrup 15 ml 11/08/21 11:09 Simple Syrup 15 Ml FEEDTUBE PRN PRN Hypoglycemia Simple Syrup 30 ml 11/08/21 11:09 Simple Syrup 15 Ml FEEDTUBE PRN PRN Hypoglycemia Sodium Bicarbonate 325 mg 11/08/21 11:09 Sodium Bicarbonate 325 Mg Tab FEEDTUBE PRN PRN For Clogged Feeding Tube Sodium Chloride 10 ml 11/04/21 10:00 12/16/21 21:29 Sodium Chloride 0.9% 10 Ml Flush Syringe IV 10 ml BID YOSSI Administration Sodium Chloride 10 ml 11/04/21 02:03 Sodium Chloride 0.9% 10 Ml Flush Syringe IV PRN PRN LINE FLUSH Sucralfate 1 gm 11/18/21 16:30 12/16/21 21:27 Sucralfate 1 Gm/10 Ml Oral Liqd PO 1 gm ACHS YOSSI Administration Trazodone HCl 50 mg 12/04/21 22:00 12/16/21 21:25 Trazodone 50 Mg Tab PO 50 mg QHS YOSSI Administration Nutrition/Malnutrition Assess - Dietary Evaluation Nutrition/Malnutrition Findings: Nutrition Notes Start: 11/04/21 17:16 Freq: Status: Active Protocol: Document 12/15/21 15:12 ISABELL (Rec: 12/15/21 15:41 ISABELL [id number]) Nutrition Notes Initial or Follow up Reassessment Current Diagnosis Diabetes,Sepsis,Hypertension, Heart Failure,Respiratory Failure Other Pertinent Diagnosis Bilateral Pneumonia, L-Pleural Effusion, Pulmonary HTN, HFrEF, GI Bleed. Current Diet TF-Vital AF 1.2 @ 40 ml/hr ( since 11/30) Labs/Tests 12/15: Na 134, Cl 95.7, BUN 28 , Glu 129, Ca 8.2. Pertinent Medications 12/15: Levothyroxine, others nutritionally unremarkable. Height 5 ft Weight 62.4 kg Heath Body Weight (kg) 45.45 BMI 26.9 Weight change and time frame No body weight change reported in 1 month. Weight Status Appropriate Subjective/Other Information RD consult for routine TF tolerance. TF continues as prescribed, well tolerated, no gastric residues, according to RN notes. Pt continues on Mechanical Ventilation. Pt is having difficulties for discharge, due to LTAC refusing transfer at the time. Percent of energy/protein needs met: Prescribed Vital AF 1.2 Tamir @ 40 ml/hr provides for energy/ protein needs (1,150 Kcal/72 g ) during LOS, 95% Kcal; 96% AA . Burn Absent Trauma Absent GI Symptoms Other Difficulty In Swallowing,Chewing Skin Integrity/Comment Lower Extremities Pressure Ulcer. Current % PO Other Minimum of two criteria No #1 Nutrition Diagnosis Inadequate oral intake Diagnosis Progress(for reassessment Continues documentation) Is patient on ventilator? Yes Is Patient Ambulatory and/or Out of Bed No REE-([facility]-confined to bed) 1207.824 Calculation Used for Recommendations [facility] Additional Notes Protein: 1.2-2 g/Kg; 75-125 g/ day. Fluids: 1 ml/Kcal, or as per MD. Nutrition Intervention Nutrition Support: Continue Vital AF 1.2 Tamir @ 40 ml/hr. Flush: 65 ml water Q 4 hr, or as per MD. Kcal 1,150 Protein (gm) 72 Carbohydrates (gm) 106 Fat (gm) 52 Fluid (mL) 779 Fiber (gm) 5 % RDI: 95% Kcal; 96% AA. Goal #1 Provide at least 75% of energy /protein needs through Enteral Feeding during LOS. Goal #2 Maintain body weight within +/ -3% of admission body weight during LOS. Follow-Up By: 12/22/21 Additional Comments Continue monitoring TF tolerance and BM.
[2021-12-16] MEDS: HYDROcodone/ACETAMINOPHEN 10-325MG TAB FEEDTUBE SCH ×3 (10:09→21:26)
[2021-12-16] MEDS: DOCUSATE SODIUM 100 MG/10 ML ORAL LIQD PO SCH ×2 (10:09→21:25)
[2021-12-16] MEDS: busPIRone 5 MG TAB PO SCH ×2 (10:09→21:25)
[2021-12-16] MEDS: POLYETHYLENE GLYCOL 3350 17 GM POWDER PO SCH (10:09)
[2021-12-16] MEDS: FUROSEMIDE 20 MG TAB PO SCH (10:09)
[2021-12-16] MEDS: LANSOPRAZOLE 30 MG SOLUTAB FEEDTUBE SCH ×2 (10:09→21:28)
[2021-12-16] MEDS: GABAPENTIN 100 MG CAP PO SCH (10:10)
[2021-12-16] MEDS: METOPROLOL TARTRATE 25 MG TAB PO SCH ×2 (10:10→21:26)
[2021-12-16] MEDS: SENNOSIDES ORAL LIQD 8.8 MG/5 ML ORAL LIQD PO SCH ×2 (10:13→21:25)
[2021-12-16 11:14] LABS: Hematocrit 27.7 % (30.3-42.9); Hemoglobin 8.9 gm/dl (10.1-14.3); Mean Corpuscular HGB Conc 32 % (30-34); Mean Corpuscular Volume 86 fl (79-97); Platelet Count 250 K/mm3 (140-440); Red Blood Count 3.24 M/mm3 (3.65-5.03)
[2021-12-16 11:37] LABS: Blood Urea Nitrogen 36 mg/dL (7-17); Calcium 8.5 mg/dL (8.4-10.2); Hemolysis Index 5
[2021-12-16 11:43] LABS: BUN/Creatinine Ratio 60
--- NOTE | 2021-12-16 12:59 | Progress Note ---
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e - placed on SBT again with p-supp at 20 cm H2O - rest if fails - continue daily SAT and SBT assessment as tolerated - LTAC evaluation ongoing - no new issues otherwise, continue care as below; - continue gentle diuresis - continue Midodrine - prn Levophed for target MAP > 65 mmHg - continue to wean supplemental oxygen for target O2 sat's > 90% acutely - VAP bundle addressed - continue lung protective strategies - continue bronchodilators with routine trach care and pulmonary hygiene per RT - wean per pulmonary driven protocols otherwise - avoid nephrotoxins, renally dose all medications - continue accuchecks with glycemic control per SSI (While critically ill target blood glucose of 140-180 mg/dL; avoid hypoglycemia) - sedation prn for target RASS 0 to -1 - antibiotics per ID recommendations - continue to avoid benzodiazepine's, reduce the possibility of delirium - prn analgesia per CPOT score - Maintenance of sleep-wake cycle, avoid delirium - continue enteral nutritional support at goal rate as tolerated - G.I. & VTE prophylaxis - PT/OT/ROM exercises - continue mobility protocols for pressure ulcer prophylaxis - Monitor hemodynamics closely - continue other care per attending / other consultants - discharge planning ongoing concurrently COVID SPECIFIC INTERVENTIONS - COVID-19 PCR negative .... Re-evaluate in am & prn CONDITION: CRITICAL PROGNOSIS: GUARDED CODE STATUS: FULL CODE The high probability of a clinically significant, sudden or life-threatening deterioration of the [respiratory, cardiovascular & neurologic] system(s) required my full and direct attention, intervention and personal management. The aggregate critical care time was [35] minutes without overlap. Time includes spent on; [x] Data Review and interpretation [x] Patient assessment and monitoring of vital signs [x] Documentation [x] Medication orders and management Subjective Date of service: 12/16/21 Principal diagnosis: Septic shock; AHRF; Anemia; Pneumonia; pleural effusion; HFrEF; Pulm HTN Interval history: Patient is seen today for: Septic shock; Acute hypoxemic respiratory failure; Anemia; Bilateral pneumonia; Left pleural effusion; HFrEF 30-35%; Pulm HTN RVSP 49 Seen and examined at bedside; 24hour events reviewed; nursing and respiratory care staff consulted; no adverse overnight events reported to me; resting in bed; remains a difficult wean; on PSV trial earlier with p-supp at 16 cm H2O but tired out; denies N/V/F/C Objective Vital Signs - 12hr 12/16/21 12/16/21 12/16/21 01:00 01:30 02:00 Temperature Pulse Rate 70 72 77 Pulse Rate [ From Monitor] Respiratory 15 15 18 Rate Blood Pressure 114/40 116/41 134/61 O2 Sat by Pulse 97 97 98 Oximetry O2 Sat by Pulse Oximetry [ Assessment] 12/16/21 12/16/21 12/16/21 02:30 03:00 03:30 Temperature Pulse Rate 68 67 67 Pulse Rate [ From Monitor] Respiratory 14 14 14 Rate Blood Pressure 113/37 107/35 112/41 O2 Sat by Pulse 96 96 96 Oximetry O2 Sat by Pulse Oximetry [ Assessment] 12/16/21 12/16/21 12/16/21 03:38 04:00 04:30 Temperature 99.7 F H Pulse Rate 89 68 67 Pulse Rate [ 63 From Monitor] Respiratory 13 14 Rate Blood Pressure 129/66 119/46 116/44 O2 Sat by Pulse 99 98 96 Oximetry O2 Sat by Pulse Oximetry [ Assessment] 12/16/21 12/16/21 12/16/21 05:00 05:30 06:00 Temperature Pulse Rate 71 77 76 Pulse Rate [ From Monitor] Respiratory 15 15 14 Rate Blood Pressure 125/50 131/55 131/52 O2 Sat by Pulse 98 100 100 Oximetry O2 Sat by Pulse Oximetry [ Assessment] 12/16/21 12/16/21 12/16/21 06:31 07:00 07:30 Temperature Pulse Rate 90 102 H 107 H Pulse Rate [ From Monitor] Respiratory 19 15 16 Rate Blood Pressure 159/75 167/87 181/94 O2 Sat by Pulse 97 95 92 Oximetry O2 Sat by Pulse Oximetry [ Assessment] 12/16/21 12/16/21 12/16/21 08:00 08:30 09:00 Temperature 99.9 F H Pulse Rate 100 H 93 H 90 Pulse Rate [ 99 H From Monitor] Respiratory 20 21 17 Rate Blood Pressure 153/71 148/61 143/48 O2 Sat by Pulse 100 94 95 Oximetry O2 Sat by Pulse 94 Oximetry [ Assessment] 12/16/21 12/16/21 12/16/21 09:30 10:00 10:10 Temperature Pulse Rate 87 84 92 H Pulse Rate [ From Monitor] Respiratory 16 14 Rate Blood Pressure 136/50 136/48 136/48 O2 Sat by Pulse 97 97 Oximetry O2 Sat by Pulse Oximetry [ Assessment] 12/16/21 12/16/21 12:00 12:23 Temperature 101 F H Pulse Rate 86 Pulse Rate [ From Monitor] Respiratory Rate Blood Pressure 121/45 O2 Sat by Pulse 97 Oximetry O2 Sat by Pulse Oximetry [ Assessment] Constitutional: alert, appears uncomfortable (restless really), other (trach to MVS, frail elderly woman with mildly increased respiratory effort at rest) Eyes: non-icteric ENT: oropharynx moist, other (+ Midline tracheostomy) Neck: supple, no lymphadenopathy, no JVD Effort: mildly labored Ascultation: Bilateral: diminished breath sounds, rhonchi Percussion: Bilateral: not dull Cardiovascular: regular rate and rhythm, other (S1,S2) Gastrointestinal: normoactive bowel sounds, soft, non-tender, non-distended (protuberant) Integumentary: normal Extremities: no cyanosis, pink and warm, pulses normal, edema (upper etremities) Neurologic: normal mental status, non-focal exam (grossly), pupils equal and round, motor strength normal and Psychiatric: anxious CBC and BMP: 12/17/21 04:25 12/17/21 04:25 ABG, PT/INR, D-dimer: ABG ABG pH 7.449 pH Units (7.350-7.450) 11/21/21 16:00 ABG pCO2 32.1 mm Hg 11/21/21 16:00 ABG pO2 114.2 mm Hg (80.0-90.0) H 11/21/21 16:00 ABG O2 Saturation 98.3 % (95.0-99.0) 11/21/21 16:00 PT/INR, D-dimer PT 16.9 Sec. (12.2-14.9) H 11/26/21 05:00 INR 1.24 (0.87-1.13) H 11/26/21 05:00 D-Dimer 2655.00 ng/mlDDU (0-234) H 01/25/22 04:28 Abnormal lab findings: Abnormal Labs 11/03/21 11/03/21 11/03/21 22:32 22:32 22:32 WBC 29.3 H RBC 2.93 L Hgb 6.1 L Hct 21.9 L MCV 75 L MCH 21 L MCHC 28 L RDW 19.7 H Plt Count Seg Neuts % (Manual) 97.0 H Lymphocytes % (Manual) 3.0 L Seg Neutrophils # Man 28.4 H Lymphocytes # (Manual) 0.9 L Monocytes # (Manual) PT 18.6 H INR 1.40 H D-Dimer ABG pH ABG pO2 ABG HCO3 ABG O2 Saturation ABG Base Excess ABG Hemoglobin Oxyhemoglobin Sodium Potassium Chloride Carbon Dioxide 20 L BUN 33 H Creatinine Glucose 119 H POC Glucose Lactic Acid Calcium 8.3 L Phosphorus Magnesium AST ALT Alkaline Phosphatase Lactate Dehydrogenase Troponin T 0.035 H C-Reactive Protein NT-Pro-B Natriuret Pep Total Protein Albumin LDL Cholesterol Direct 34 L Vitamin B12 Crossmatch 11/03/21 11/03/21 11/03/21 22:32 22:32 23:57 WBC RBC Hgb Hct MCV MCH MCHC RDW Plt Count Seg Neuts % (Manual) Lymphocytes % (Manual) Seg Neutrophils # Man Lymphocytes # (Manual) Monocytes # (Manual) PT INR D-Dimer ABG pH ABG pO2 ABG HCO3 ABG O2 Saturation ABG Base Excess ABG Hemoglobin Oxyhemoglobin Sodium Potassium Chloride Carbon Dioxide BUN Creatinine Glucose POC Glucose Lactic Acid 3.70 H* Calcium Phosphorus Magnesium AST ALT Alkaline Phosphatase 139 H Lactate Dehydrogenase Troponin T C-Reactive Protein NT-Pro-B Natriuret Pep 7895 H Total Protein Albumin 3.5 L LDL Cholesterol Direct Vitamin B12 Crossmatch See Detail 11/04/21 11/04/21 11/05/21 00:59 13:58 00:51 WBC 27.9 H RBC 3.28 L Hgb 7.3 L Hct 25.5 L MCV 78 L MCH 22 L MCHC 29 L RDW 19.1 H Plt Count Seg Neuts % (Manual) 96.0 H Lymphocytes % (Manual) 2.0 L Seg Neutrophils # Man 26.8 H Lymphocytes # (Manual) 0.6 L Monocytes # (Manual) PT INR D-Dimer ABG pH ABG pO2 ABG HCO3 ABG O2 Saturation ABG Base Excess ABG Hemoglobin Oxyhemoglobin Sodium Potassium Chloride Carbon Dioxide BUN Creatinine Glucose POC Glucose Lactic Acid Calcium Phosphorus Magnesium AST ALT Alkaline Phosphatase Lactate Dehydrogenase Troponin T 0.051 H D 0.032 H D C-Reactive Protein NT-Pro-B Natriuret Pep Total Protein Albumin LDL Cholesterol Direct Vitamin B12 Crossmatch 11/05/21 11/05/21 11/05/21 06:11 06:11 06:11 WBC 31.8 H RBC 3.57 L Hgb 8.0 L Hct 27.7 L MCV 78 L MCH 22 L MCHC 29 L RDW 19.2 H Plt Count Seg Neuts % (Manual) 91.0 H Lymphocytes % (Manual) 4.5 L Seg Neutrophils # Man 28.9 H Lymphocytes # (Manual) Monocytes # (Manual) 1.1 H PT INR D-Dimer 1494.53 H ABG pH ABG pO2 ABG HCO3 ABG O2 Saturation ABG Base Excess ABG Hemoglobin Oxyhemoglobin Sodium Potassium Chloride Carbon Dioxide 19 L BUN 42 H Creatinine Glucose 115 H POC Glucose Lactic Acid Calcium Phosphorus Magnesium AST 43 H ALT Alkaline Phosphatase Lactate Dehydrogenase 187 H Troponin T C-Reactive Protein 22.20 H NT-Pro-B Natriuret Pep Total Protein 6.0 L Albumin 3.2 L LDL Cholesterol Direct Vitamin B12 Crossmatch 11/05/21 11/05/21 11/06/21 06:11 12:15 00:30 WBC RBC Hgb Hct MCV MCH MCHC RDW Plt Count Seg Neuts % (Manual) Lymphocytes % (Manual) Seg Neutrophils # Man Lymphocytes # (Manual) Monocytes # (Manual) PT INR D-Dimer ABG pH ABG pO2 ABG HCO3 ABG O2 Saturation ABG Base Excess ABG Hemoglobin Oxyhemoglobin Sodium Potassium Chloride Carbon Dioxide BUN Creatinine Glucose POC Glucose 113 H 69 L Lactic Acid Calcium Phosphorus Magnesium AST ALT Alkaline Phosphatase Lactate Dehydrogenase Troponin T 0.033 H C-Reactive Protein NT-Pro-B Natriuret Pep Total Protein Albumin LDL Cholesterol Direct Vitamin B12 Crossmatch 11/06/21 11/06/21 11/06/21 05:50 15:50 15:50 WBC 25.5 H RBC 3.62 L Hgb 8.0 L Hct 27.5 L MCV 76 L MCH 22 L MCHC 29 L RDW 19.6 H Plt Count Seg Neuts % (Manual) 92.0 H Lymphocytes % (Manual) 5.0 L Seg Neutrophils # Man 23.5 H Lymphocytes # (Manual) Monocytes # (Manual) PT INR D-Dimer ABG pH 7.305 L ABG pO2 ABG HCO3 15.8 L ABG O2 Saturation ABG Base Excess -9.6 L ABG Hemoglobin 8.6 L Oxyhemoglobin 94.6 L Sodium Potassium Chloride 113.9 H Carbon Dioxide 17 L BUN 56 H Creatinine Glucose 114 H POC Glucose Lactic Acid Calcium 7.9 L Phosphorus Magnesium AST 1410 H ALT 934 H Alkaline Phosphatase 142 H Lactate Dehydrogenase Troponin T C-Reactive Protein NT-Pro-B Natriuret Pep Total Protein 5.0 L Albumin 2.6 L LDL Cholesterol Direct Vitamin B12 Crossmatch 11/07/21 11/07/21 11/07/21 03:30 04:50 08:07 WBC RBC Hgb Hct MCV MCH MCHC RDW Plt Count Seg Neuts % (Manual) Lymphocytes % (Manual) Seg Neutrophils # Man Lymphocytes # (Manual) Monocytes # (Manual) PT INR D-Dimer ABG pH ABG pO2 296.9 H ABG HCO3 18.1 L ABG O2 Saturation 99.5 H ABG Base Excess -5.9 L ABG Hemoglobin 7.6 L Oxyhemoglobin Sodium Potassium Chloride Carbon Dioxide BUN Creatinine Glucose POC Glucose 106 H 108 H Lactic Acid Calcium Phosphorus Magnesium AST ALT Alkaline Phosphatase Lactate Dehydrogenase Troponin T C-Reactive Protein NT-Pro-B Natriuret Pep Total Protein Albumin LDL Cholesterol Direct Vitamin B12 Crossmatch 11/08/21 11/08/21 11/08/21 03:10 18:05 23:43 WBC RBC Hgb Hct MCV MCH MCHC RDW Plt Count Seg Neuts % (Manual) Lymphocytes % (Manual) Seg Neutrophils # Man Lymphocytes # (Manual) Monocytes # (Manual) PT INR D-Dimer ABG pH ABG pO2 127.4 H ABG HCO3 ABG O2 Saturation ABG Base Excess -3.4 L ABG Hemoglobin 7.4 L Oxyhemoglobin Sodium Potassium Chloride Carbon Dioxide BUN Creatinine Glucose POC Glucose 113 H 141 H Lactic Acid Calcium Phosphorus Magnesium AST ALT Alkaline Phosphatase Lactate Dehydrogenase Troponin T C-Reactive Protein NT-Pro-B Natriuret Pep Total Protein Albumin LDL Cholesterol Direct Vitamin B12 Crossmatch 11/08/21 11/08/21 11/09/21 Unknown Unknown 02:00 WBC 14.5 H RBC 3.35 L Hgb 7.5 L 8.1 L Hct 25.4 L 27.6 L MCV 76 L 76 L MCH 23 L 22 L MCHC RDW 19.9 H 19.9 H Plt Count Seg Neuts % (Manual) Lymphocytes % (Manual) Seg Neutrophils # Man Lymphocytes # (Manual) Monocytes # (Manual) PT INR D-Dimer ABG pH ABG pO2 ABG HCO3 ABG O2 Saturation ABG Base Excess ABG Hemoglobin Oxyhemoglobin Sodium 154 H D Potassium 3.3 L Chloride 120.7 H Carbon Dioxide 20 L BUN 38 H Creatinine Glucose POC Glucose Lactic Acid Calcium 8.3 L Phosphorus Magnesium AST ALT Alkaline Phosphatase Lactate Dehydrogenase Troponin T C-Reactive Protein NT-Pro-B Natriuret Pep Total Protein Albumin LDL Cholesterol Direct Vitamin B12 Crossmatch 11/09/21 11/09/21 11/09/21 02:00 02:31 05:12 WBC RBC Hgb Hct MCV MCH MCHC RDW Plt Count Seg Neuts % (Manual) Lymphocytes % (Manual) Seg Neutrophils # Man Lymphocytes # (Manual) Monocytes # (Manual) PT INR D-Dimer ABG pH 7.479 H ABG pO2 121.3 H ABG HCO3 ABG O2 Saturation ABG Base Excess ABG Hemoglobin 7.3 L Oxyhemoglobin Sodium Potassium Chloride 112.5 H Carbon Dioxide BUN 33 H Creatinine Glucose 161 H POC Glucose 135 H Lactic Acid Calcium Phosphorus Magnesium AST 251 H ALT 481 H Alkaline Phosphatase Lactate Dehydrogenase Troponin T C-Reactive Protein NT-Pro-B Natriuret Pep Total Protein 5.0 L Albumin 2.8 L LDL Cholesterol Direct Vitamin B12 Crossmatch 11/09/21 11/09/21 11/09/21 11:33 16:32 23:28 WBC RBC Hgb Hct MCV MCH MCHC RDW Plt Count Seg Neuts % (Manual) Lymphocytes % (Manual) Seg Neutrophils # Man Lymphocytes # (Manual) Monocytes # (Manual) PT INR D-Dimer ABG pH ABG pO2 ABG HCO3 ABG O2 Saturation ABG Base Excess ABG Hemoglobin Oxyhemoglobin Sodium Potassium Chloride Carbon Dioxide BUN Creatinine Glucose POC Glucose 132 H 133 H 143 H Lactic Acid Calcium Phosphorus Magnesium AST ALT Alkaline Phosphatase Lactate Dehydrogenase Troponin T C-Reactive Protein NT-Pro-B Natriuret Pep Total Protein Albumin LDL Cholesterol Direct Vitamin B12 Crossmatch 11/10/21 11/10/21 11/10/21 04:00 04:00 05:35 WBC 16.0 H RBC 3.61 L Hgb 8.0 L Hct 27.1 L MCV 75 L MCH 22 L MCHC RDW 20.4 H Plt Count Seg Neuts % (Manual) Lymphocytes % (Manual) Seg Neutrophils # Man Lymphocytes # (Manual) Monocytes # (Manual) PT INR D-Dimer ABG pH ABG pO2 ABG HCO3 ABG O2 Saturation ABG Base Excess ABG Hemoglobin Oxyhemoglobin Sodium 149 H Potassium Chloride 114.1 H Carbon Dioxide BUN 31 H Creatinine Glucose 148 H POC Glucose 132 H Lactic Acid Calcium 8.2 L Phosphorus Magnesium AST ALT Alkaline Phosphatase Lactate Dehydrogenase Troponin T C-Reactive Protein NT-Pro-B Natriuret Pep Total Protein Albumin LDL Cholesterol Direct Vitamin B12 Crossmatch 11/10/21 11/10/21 11/10/21 11:31 14:08 15:35 WBC RBC Hgb Hct MCV MCH MCHC RDW Plt Count Seg Neuts % (Manual) Lymphocytes % (Manual) Seg Neutrophils # Man Lymphocytes # (Manual) Monocytes # (Manual) PT INR D-Dimer ABG pH ABG pO2 126.6 H ABG HCO3 ABG O2 Saturation ABG Base Excess ABG Hemoglobin 7.4 L Oxyhemoglobin Sodium Potassium Chloride Carbon Dioxide BUN Creatinine Glucose POC Glucose 147 H Lactic Acid Calcium Phosphorus Magnesium AST ALT Alkaline Phosphatase Lactate Dehydrogenase Troponin T C-Reactive Protein NT-Pro-B Natriuret Pep Total Protein Albumin LDL Cholesterol Direct Vitamin B12 1823 H Crossmatch 11/10/21 11/11/21 11/11/21 17:53 00:55 04:28 WBC RBC Hgb Hct MCV MCH MCHC RDW Plt Count Seg Neuts % (Manual) Lymphocytes % (Manual) Seg Neutrophils # Man Lymphocytes # (Manual) Monocytes # (Manual) PT INR D-Dimer ABG pH ABG pO2 ABG HCO3 ABG O2 Saturation ABG Base Excess ABG Hemoglobin Oxyhemoglobin Sodium 149 H Potassium Chloride 112.2 H Carbon Dioxide BUN 34 H Creatinine Glucose 148 H POC Glucose 140 H 145 H Lactic Acid Calcium 7.9 L Phosphorus Magnesium AST 53 H ALT 203 H Alkaline Phosphatase Lactate Dehydrogenase Troponin T C-Reactive Protein NT-Pro-B Natriuret Pep Total Protein 4.9 L Albumin 2.6 L LDL Cholesterol Direct Vitamin B12 Crossmatch 11/11/21 11/11/21 11/11/21 04:28 04:28 05:28 WBC 20.9 H RBC 3.47 L Hgb 7.5 L Hct 26.0 L MCV 75 L MCH 22 L MCHC 29 L RDW 21.6 H Plt Count 132 L Seg Neuts % (Manual) Lymphocytes % (Manual) Seg Neutrophils # Man Lymphocytes # (Manual) Monocytes # (Manual) PT INR D-Dimer 2655.00 H ABG pH ABG pO2 ABG HCO3 ABG O2 Saturation ABG Base Excess ABG Hemoglobin Oxyhemoglobin Sodium Potassium Chloride Carbon Dioxide BUN Creatinine Glucose POC Glucose 154 H Lactic Acid Calcium Phosphorus Magnesium AST ALT Alkaline Phosphatase Lactate Dehydrogenase Troponin T C-Reactive Protein NT-Pro-B Natriuret Pep Total Protein Albumin LDL Cholesterol Direct Vitamin B12 Crossmatch 11/11/21 11/11/21 11/12/21 12:38 18:13 00:14 WBC RBC Hgb Hct MCV MCH MCHC RDW Plt Count Seg Neuts % (Manual) Lymphocytes % (Manual) Seg Neutrophils # Man Lymphocytes # (Manual) Monocytes # (Manual) PT INR D-Dimer ABG pH ABG pO2 ABG HCO3 ABG O2 Saturation ABG Base Excess ABG Hemoglobin Oxyhemoglobin Sodium Potassium Chloride Carbon Dioxide BUN Creatinine Glucose POC Glucose 137 H 108 H 137 H Lactic Acid Calcium Phosphorus Magnesium AST ALT Alkaline Phosphatase Lactate Dehydrogenase Troponin T C-Reactive Protein NT-Pro-B Natriuret Pep Total Protein Albumin LDL Cholesterol Direct Vitamin B12 Crossmatch 11/12/21 11/12/21 11/12/21 05:40 06:24 11:12 WBC RBC Hgb Hct MCV MCH MCHC RDW Plt Count Seg Neuts % (Manual) Lymphocytes % (Manual) Seg Neutrophils # Man Lymphocytes # (Manual) Monocytes # (Manual) PT INR D-Dimer ABG pH 7.586 H ABG pO2 150.6 H ABG HCO3 27.2 H ABG O2 Saturation 99.1 H ABG Base Excess 5.2 H ABG Hemoglobin 7.5 L Oxyhemoglobin Sodium Potassium Chloride Carbon Dioxide BUN Creatinine Glucose POC Glucose 132 H 140 H Lactic Acid Calcium Phosphorus Magnesium AST ALT Alkaline Phosphatase Lactate Dehydrogenase Troponin T C-Reactive Protein NT-Pro-B Natriuret Pep Total Protein Albumin LDL Cholesterol Direct Vitamin B12 Crossmatch 11/12/21 11/12/21 11/12/21 14:50 14:50 17:13 WBC 19.8 H RBC 3.27 L Hgb 7.1 L Hct 24.5 L MCV 75 L MCH 22 L MCHC 29 L RDW 22.3 H Plt Count Seg Neuts % (Manual) Lymphocytes % (Manual) Seg Neutrophils # Man Lymphocytes # (Manual) Monocytes # (Manual) PT INR D-Dimer ABG pH ABG pO2 ABG HCO3 ABG O2 Saturation ABG Base Excess ABG Hemoglobin Oxyhemoglobin Sodium 150 H Potassium 3.3 L Chloride 112.0 H Carbon Dioxide BUN 40 H Creatinine Glucose 151 H POC Glucose 121 H Lactic Acid Calcium 7.4 L Phosphorus 1.70 L Magnesium 1.40 L AST ALT Alkaline Phosphatase Lactate Dehydrogenase Troponin T C-Reactive Protein NT-Pro-B Natriuret Pep Total Protein Albumin LDL Cholesterol Direct Vitamin B12 Crossmatch 11/12/21 11/13/21 11/13/21 23:19 05:34 06:30 WBC RBC Hgb Hct MCV MCH MCHC RDW Plt Count Seg Neuts % (Manual) Lymphocytes % (Manual) Seg Neutrophils # Man Lymphocytes # (Manual) Monocytes # (Manual) PT INR D-Dimer ABG pH ABG pO2 ABG HCO3 ABG O2 Saturation ABG Base Excess ABG Hemoglobin Oxyhemoglobin Sodium 149 H Potassium Chloride 60.0 L Carbon Dioxide BUN 40 H Creatinine Glucose 146 H POC Glucose 113 H 132 H Lactic Acid Calcium 7.3 L Phosphorus Magnesium 2.40 H AST ALT 72 H Alkaline Phosphatase Lactate Dehydrogenase Troponin T C-Reactive Protein NT-Pro-B Natriuret Pep Total Protein 5.2 L Albumin 2.2 L LDL Cholesterol Direct Vitamin B12 Crossmatch 11/13/21 11/13/21 11/13/21 06:30 08:30 11:19 WBC 21.2 H RBC 3.12 L Hgb 6.8 L Hct 23.2 L MCV 74 L MCH 22 L MCHC 29 L RDW 22.2 H Plt Count 135 L Seg Neuts % (Manual) Lymphocytes % (Manual) Seg Neutrophils # Man Lymphocytes # (Manual) Monocytes # (Manual) PT INR D-Dimer ABG pH ABG pO2 ABG HCO3 ABG O2 Saturation ABG Base Excess ABG Hemoglobin Oxyhemoglobin Sodium Potassium Chloride Carbon Dioxide BUN Creatinine Glucose POC Glucose 136 H Lactic Acid Calcium Phosphorus Magnesium AST ALT Alkaline Phosphatase Lactate Dehydrogenase Troponin T C-Reactive Protein NT-Pro-B Natriuret Pep Total Protein Albumin LDL Cholesterol Direct Vitamin B12 Crossmatch See Detail 11/13/21 11/14/21 11/14/21 18:21 00:01 04:46 WBC 20.0 H RBC 3.41 L Hgb 7.9 L Hct 26.8 L MCV MCH 23 L MCHC 29 L RDW 24.0 H Plt Count Seg Neuts % (Manual) Lymphocytes % (Manual) Seg Neutrophils # Man Lymphocytes # (Manual) Monocytes # (Manual) PT INR D-Dimer ABG pH ABG pO2 ABG HCO3 ABG O2 Saturation ABG Base Excess ABG Hemoglobin Oxyhemoglobin Sodium Potassium Chloride Carbon Dioxide BUN Creatinine Glucose POC Glucose 149 H 141 H Lactic Acid Calcium Phosphorus Magnesium AST ALT Alkaline Phosphatase Lactate Dehydrogenase Troponin T C-Reactive Protein NT-Pro-B Natriuret Pep Total Protein Albumin LDL Cholesterol Direct Vitamin B12 Crossmatch 11/14/21 11/14/21 11/14/21 04:46 05:10 11:10 WBC RBC Hgb Hct MCV MCH MCHC RDW Plt Count Seg Neuts % (Manual) Lymphocytes % (Manual) Seg Neutrophils # Man Lymphocytes # (Manual) Monocytes # (Manual) PT INR D-Dimer ABG pH ABG pO2 ABG HCO3 ABG O2 Saturation ABG Base Excess ABG Hemoglobin Oxyhemoglobin Sodium 148 H Potassium Chloride 113.1 H Carbon Dioxide BUN 43 H Creatinine Glucose 140 H POC Glucose 132 H 133 H Lactic Acid Calcium 7.5 L Phosphorus Magnesium AST ALT Alkaline Phosphatase Lactate Dehydrogenase Troponin T C-Reactive Protein NT-Pro-B Natriuret Pep Total Protein Albumin LDL Cholesterol Direct Vitamin B12 Crossmatch 11/14/21 11/14/21 11/14/21 16:14 17:48 23:23 WBC RBC Hgb Hct MCV MCH MCHC RDW Plt Count Seg Neuts % (Manual) Lymphocytes % (Manual) Seg Neutrophils # Man Lymphocytes # (Manual) Monocytes # (Manual) PT INR D-Dimer ABG pH ABG pO2 ABG HCO3 28.0 H ABG O2 Saturation ABG Base Excess 3.1 H ABG Hemoglobin 5.8 L Oxyhemoglobin 94.8 L Sodium Potassium Chloride Carbon Dioxide BUN Creatinine Glucose POC Glucose 130 H 136 H Lactic Acid Calcium Phosphorus Magnesium AST ALT Alkaline Phosphatase Lactate Dehydrogenase Troponin T C-Reactive Protein NT-Pro-B Natriuret Pep Total Protein Albumin LDL Cholesterol Direct Vitamin B12 Crossmatch 11/15/21 11/15/21 11/15/21 05:20 05:50 05:50 WBC 19.9 H RBC 3.50 L Hgb 8.2 L Hct 27.9 L MCV MCH 23 L MCHC 29 L RDW 24.9 H Plt Count Seg Neuts % (Manual) Lymphocytes % (Manual) Seg Neutrophils # Man Lymphocytes # (Manual) Monocytes # (Manual) PT INR D-Dimer ABG pH ABG pO2 ABG HCO3 ABG O2 Saturation ABG Base Excess ABG Hemoglobin Oxyhemoglobin Sodium 149 H Potassium Chloride 112.0 H Carbon Dioxide BUN 48 H Creatinine Glucose 152 H POC Glucose 137 H Lactic Acid Calcium 7.9 L Phosphorus Magnesium AST ALT Alkaline Phosphatase Lactate Dehydrogenase Troponin T C-Reactive Protein NT-Pro-B Natriuret Pep Total Protein Albumin LDL Cholesterol Direct Vitamin B12 Crossmatch 11/15/21 11/15/21 11/15/21 12:12 17:07 23:24 WBC RBC Hgb Hct MCV MCH MCHC RDW Plt Count Seg Neuts % (Manual) Lymphocytes % (Manual) Seg Neutrophils # Man Lymphocytes # (Manual) Monocytes # (Manual) PT INR D-Dimer ABG pH ABG pO2 ABG HCO3 ABG O2 Saturation ABG Base Excess ABG Hemoglobin Oxyhemoglobin Sodium Potassium Chloride Carbon Dioxide BUN Creatinine Glucose POC Glucose 114 H 135 H 123 H Lactic Acid Calcium Phosphorus Magnesium AST ALT Alkaline Phosphatase Lactate Dehydrogenase Troponin T C-Reactive Protein NT-Pro-B Natriuret Pep Total Protein Albumin LDL Cholesterol Direct Vitamin B12 Crossmatch 11/16/21 11/16/21 11/16/21 05:21 10:00 10:00 WBC 21.7 H RBC 2.57 L Hgb 6.0 L Hct 20.2 L D MCV MCH 24 L MCHC RDW 26.3 H Plt Count Seg Neuts % (Manual) Lymphocytes % (Manual) Seg Neutrophils # Man Lymphocytes # (Manual) Monocytes # (Manual) PT INR D-Dimer ABG pH ABG pO2 ABG HCO3 ABG O2 Saturation ABG Base Excess ABG Hemoglobin Oxyhemoglobin Sodium 153 H Potassium Chloride 114.9 H Carbon Dioxide BUN 74 H Creatinine Glucose 155 H POC Glucose 127 H Lactic Acid Calcium 8.1 L Phosphorus Magnesium AST ALT Alkaline Phosphatase Lactate Dehydrogenase Troponin T C-Reactive Protein NT-Pro-B Natriuret Pep Total Protein Albumin LDL Cholesterol Direct Vitamin B12 Crossmatch 11/16/21 11/16/21 11/16/21 11:34 14:00 15:25 WBC 17.2 H RBC 2.08 L Hgb 4.7 L* Hct 16.2 L* MCV 78 L MCH 23 L MCHC 29 L RDW 26.0 H Plt Count Seg Neuts % (Manual) 87.0 H Lymphocytes % (Manual) 8.0 L Seg Neutrophils # Man 15.0 H Lymphocytes # (Manual) Monocytes # (Manual) 0.9 H PT INR D-Dimer ABG pH ABG pO2 ABG HCO3 ABG O2 Saturation ABG Base Excess ABG Hemoglobin Oxyhemoglobin Sodium Potassium Chloride Carbon Dioxide BUN Creatinine Glucose POC Glucose 131 H Lactic Acid Calcium Phosphorus Magnesium AST ALT Alkaline Phosphatase Lactate Dehydrogenase Troponin T C-Reactive Protein NT-Pro-B Natriuret Pep Total Protein Albumin LDL Cholesterol Direct Vitamin B12 Crossmatch See Detail 11/16/21 11/16/21 11/16/21 15:25 17:21 22:43 WBC RBC Hgb 8.6 L D Hct 27.7 L D MCV MCH MCHC RDW Plt Count Seg Neuts % (Manual) Lymphocytes % (Manual) Seg Neutrophils # Man Lymphocytes # (Manual) Monocytes # (Manual) PT INR D-Dimer ABG pH ABG pO2 ABG HCO3 ABG O2 Saturation ABG Base Excess ABG Hemoglobin Oxyhemoglobin Sodium 148 H Potassium Chloride 113.2 H Carbon Dioxide BUN 84 H Creatinine Glucose 164 H POC Glucose 124 H Lactic Acid Calcium 7.6 L Phosphorus Magnesium AST ALT Alkaline Phosphatase Lactate Dehydrogenase Troponin T C-Reactive Protein NT-Pro-B Natriuret Pep Total Protein Albumin LDL Cholesterol Direct Vitamin B12 Crossmatch 11/16/21 11/17/21 11/17/21 23:07 05:33 05:56 WBC 25.1 H RBC 3.47 L Hgb 8.7 L Hct 28.5 L MCV MCH 25 L MCHC RDW 22.3 H Plt Count Seg Neuts % (Manual) Lymphocytes % (Manual) Seg Neutrophils # Man Lymphocytes # (Manual) Monocytes # (Manual) PT INR D-Dimer ABG pH ABG pO2 ABG HCO3 ABG O2 Saturation ABG Base Excess ABG Hemoglobin Oxyhemoglobin Sodium Potassium Chloride Carbon Dioxide BUN Creatinine Glucose POC Glucose 128 H 133 H Lactic Acid Calcium Phosphorus Magnesium AST ALT Alkaline Phosphatase Lactate Dehydrogenase Troponin T C-Reactive Protein NT-Pro-B Natriuret Pep Total Protein Albumin LDL Cholesterol Direct Vitamin B12 Crossmatch 11/17/21 11/17/21 11/17/21 05:56 11:00 11:55 WBC RBC Hgb 8.3 L Hct 26.9 L MCV MCH MCHC RDW Plt Count Seg Neuts % (Manual) Lymphocytes % (Manual) Seg Neutrophils # Man Lymphocytes # (Manual) Monocytes # (Manual) PT INR D-Dimer ABG pH ABG pO2 ABG HCO3 ABG O2 Saturation ABG Base Excess ABG Hemoglobin Oxyhemoglobin Sodium 151 H Potassium Chloride 113.6 H Carbon Dioxide BUN 85 H Creatinine Glucose 132 H POC Glucose 121 H Lactic Acid Calcium 7.8 L Phosphorus Magnesium AST ALT Alkaline Phosphatase Lactate Dehydrogenase Troponin T C-Reactive Protein NT-Pro-B Natriuret Pep Total Protein 5.1 L Albumin 2.2 L LDL Cholesterol Direct Vitamin B12 Crossmatch 11/17/21 11/17/21 11/18/21 18:04 18:55 00:26 WBC RBC Hgb 7.5 L 7.1 L Hct 24.8 L 23.6 L MCV MCH MCHC RDW Plt Count Seg Neuts % (Manual) Lymphocytes % (Manual) Seg Neutrophils # Man Lymphocytes # (Manual) Monocytes # (Manual) PT INR D-Dimer ABG pH ABG pO2 ABG HCO3 ABG O2 Saturation ABG Base Excess ABG Hemoglobin Oxyhemoglobin Sodium Potassium Chloride Carbon Dioxide BUN Creatinine Glucose POC Glucose 144 H Lactic Acid Calcium Phosphorus Magnesium AST ALT Alkaline Phosphatase Lactate Dehydrogenase Troponin T C-Reactive Protein NT-Pro-B Natriuret Pep Total Protein Albumin LDL Cholesterol Direct Vitamin B12 Crossmatch 11/18/21 11/18/21 11/18/21 00:43 05:10 05:10 WBC 12.5 H RBC 2.39 L Hgb 6.1 L Hct 20.2 L MCV MCH 25 L MCHC RDW 23.2 H Plt Count Seg Neuts % (Manual) Lymphocytes % (Manual) Seg Neutrophils # Man Lymphocytes # (Manual) Monocytes # (Manual) PT INR D-Dimer ABG pH ABG pO2 ABG HCO3 ABG O2 Saturation ABG Base Excess ABG Hemoglobin Oxyhemoglobin Sodium 131 L D Potassium 2.9 L* D Chloride 97.8 L Carbon Dioxide BUN 58 H Creatinine Glucose 665 H* POC Glucose 139 H Lactic Acid Calcium 7.0 L Phosphorus 2.20 L D Magnesium 1.50 L AST ALT Alkaline Phosphatase Lactate Dehydrogenase Troponin T C-Reactive Protein NT-Pro-B Natriuret Pep Total Protein Albumin LDL Cholesterol Direct Vitamin B12 Crossmatch 11/18/21 11/18/21 11/18/21 05:23 07:10 10:45 WBC RBC Hgb Hct MCV MCH MCHC RDW Plt Count Seg Neuts % (Manual) Lymphocytes % (Manual) Seg Neutrophils # Man Lymphocytes # (Manual) Monocytes # (Manual) PT INR D-Dimer ABG pH ABG pO2 ABG HCO3 ABG O2 Saturation ABG Base Excess ABG Hemoglobin Oxyhemoglobin Sodium 148 H D Potassium 3.1 L Chloride 111.9 H Carbon Dioxide BUN 63 H Creatinine Glucose 141 H POC Glucose 124 H Lactic Acid Calcium 8.1 L D Phosphorus Magnesium AST ALT Alkaline Phosphatase Lactate Dehydrogenase Troponin T C-Reactive Protein NT-Pro-B Natriuret Pep Total Protein Albumin LDL Cholesterol Direct Vitamin B12 Crossmatch See Detail 11/18/21 11/19/21 11/19/21 11:57 00:19 04:55 WBC RBC 3.35 L Hgb 9.0 L 8.9 L Hct 28.3 L D 28.1 L MCV MCH 27 L MCHC RDW 20.3 H Plt Count Seg Neuts % (Manual) Lymphocytes % (Manual) Seg Neutrophils # Man Lymphocytes # (Manual) Monocytes # (Manual) PT INR D-Dimer ABG pH ABG pO2 ABG HCO3 ABG O2 Saturation ABG Base Excess ABG Hemoglobin Oxyhemoglobin Sodium Potassium Chloride Carbon Dioxide BUN Creatinine Glucose POC Glucose 119 H Lactic Acid Calcium Phosphorus Magnesium AST ALT Alkaline Phosphatase Lactate Dehydrogenase Troponin T C-Reactive Protein NT-Pro-B Natriuret Pep Total Protein Albumin LDL Cholesterol Direct Vitamin B12 Crossmatch 11/19/21 11/19/21 11/20/21 04:55 05:42 00:55 WBC RBC Hgb 9.0 L Hct 28.6 L MCV MCH MCHC RDW Plt Count Seg Neuts % (Manual) Lymphocytes % (Manual) Seg Neutrophils # Man Lymphocytes # (Manual) Monocytes # (Manual) PT INR D-Dimer ABG pH ABG pO2 ABG HCO3 ABG O2 Saturation ABG Base Excess ABG Hemoglobin Oxyhemoglobin Sodium Potassium 3.5 L Chloride 108.6 H Carbon Dioxide BUN 47 H Creatinine Glucose 207 H POC Glucose 63 L Lactic Acid Calcium 7.1 L Phosphorus Magnesium AST ALT Alkaline Phosphatase Lactate Dehydrogenase Troponin T C-Reactive Protein NT-Pro-B Natriuret Pep Total Protein Albumin LDL Cholesterol Direct Vitamin B12 Crossmatch 11/20/21 11/20/21 11/20/21 05:40 05:40 Unknown WBC RBC 3.40 L Hgb 9.1 L Hct 28.8 L MCV MCH 27 L MCHC RDW 20.7 H Plt Count Seg Neuts % (Manual) Lymphocytes % (Manual) Seg Neutrophils # Man Lymphocytes # (Manual) Monocytes # (Manual) PT INR D-Dimer ABG pH ABG pO2 ABG HCO3 ABG O2 Saturation ABG Base Excess -2.7 L ABG Hemoglobin 9.5 L Oxyhemoglobin 94.3 L Sodium Potassium 3.5 L Chloride 108.9 H Carbon Dioxide BUN 37 H Creatinine Glucose 117 H POC Glucose Lactic Acid Calcium 7.5 L Phosphorus Magnesium AST ALT Alkaline Phosphatase Lactate Dehydrogenase Troponin T C-Reactive Protein NT-Pro-B Natriuret Pep Total Protein Albumin LDL Cholesterol Direct Vitamin B12 Crossmatch 11/21/21 11/21/21 11/21/21 04:30 04:30 16:00 WBC RBC 3.25 L Hgb 8.6 L Hct 28.1 L MCV MCH 26 L MCHC RDW 20.7 H Plt Count Seg Neuts % (Manual) Lymphocytes % (Manual) Seg Neutrophils # Man Lymphocytes # (Manual) Monocytes # (Manual) PT INR D-Dimer ABG pH ABG pO2 114.2 H ABG HCO3 ABG O2 Saturation ABG Base Excess ABG Hemoglobin 9.1 L Oxyhemoglobin Sodium 134 L Potassium Chloride Carbon Dioxide 20 L BUN 34 H Creatinine Glucose POC Glucose Lactic Acid Calcium 7.1 L Phosphorus Magnesium AST ALT Alkaline Phosphatase Lactate Dehydrogenase Troponin T C-Reactive Protein NT-Pro-B Natriuret Pep Total Protein Albumin LDL Cholesterol Direct Vitamin B12 Crossmatch 11/22/21 11/22/21 11/22/21 07:07 07:07 23:54 WBC RBC 3.30 L Hgb 9.0 L Hct 28.5 L MCV MCH 27 L MCHC RDW 21.0 H Plt Count Seg Neuts % (Manual) Lymphocytes % (Manual) Seg Neutrophils # Man Lymphocytes # (Manual) Monocytes # (Manual) PT INR D-Dimer ABG pH ABG pO2 ABG HCO3 ABG O2 Saturation ABG Base Excess ABG Hemoglobin Oxyhemoglobin Sodium Potassium Chloride Carbon Dioxide BUN 32 H Creatinine Glucose 106 H POC Glucose 110 H Lactic Acid Calcium 7.5 L Phosphorus Magnesium AST ALT Alkaline Phosphatase Lactate Dehydrogenase Troponin T C-Reactive Protein NT-Pro-B Natriuret Pep Total Protein Albumin LDL Cholesterol Direct Vitamin B12 Crossmatch 11/23/21 11/23/21 11/23/21 04:38 04:38 06:01 WBC RBC 3.23 L Hgb 8.8 L Hct 28.0 L MCV MCH 27 L MCHC RDW 21.3 H Plt Count Seg Neuts % (Manual) Lymphocytes % (Manual) Seg Neutrophils # Man Lymphocytes # (Manual) Monocytes # (Manual) PT INR D-Dimer ABG pH ABG pO2 ABG HCO3 ABG O2 Saturation ABG Base Excess ABG Hemoglobin Oxyhemoglobin Sodium 136 L Potassium Chloride Carbon Dioxide 20 L BUN 32 H Creatinine Glucose 109 H POC Glucose 115 H Lactic Acid Calcium 7.7 L Phosphorus Magnesium AST ALT Alkaline Phosphatase Lactate Dehydrogenase Troponin T C-Reactive Protein NT-Pro-B Natriuret Pep Total Protein Albumin LDL Cholesterol Direct Vitamin B12 Crossmatch 11/23/21 11/24/21 11/24/21 11:40 00:03 04:13 WBC RBC 3.18 L Hgb 8.5 L Hct 27.5 L MCV MCH 27 L MCHC RDW 21.6 H Plt Count Seg Neuts % (Manual) Lymphocytes % (Manual) Seg Neutrophils # Man Lymphocytes # (Manual) Monocytes # (Manual) PT INR D-Dimer ABG pH ABG pO2 ABG HCO3 ABG O2 Saturation ABG Base Excess ABG Hemoglobin Oxyhemoglobin Sodium Potassium Chloride Carbon Dioxide BUN Creatinine Glucose POC Glucose 117 H 111 H Lactic Acid Calcium Phosphorus Magnesium AST ALT Alkaline Phosphatase Lactate Dehydrogenase Troponin T C-Reactive Protein NT-Pro-B Natriuret Pep Total Protein Albumin LDL Cholesterol Direct Vitamin B12 Crossmatch 11/24/21 11/24/21 11/24/21 04:13 05:30 11:10 WBC RBC Hgb Hct MCV MCH MCHC RDW Plt Count Seg Neuts % (Manual) Lymphocytes % (Manual) Seg Neutrophils # Man Lymphocytes # (Manual) Monocytes # (Manual) PT INR D-Dimer ABG pH ABG pO2 ABG HCO3 ABG O2 Saturation ABG Base Excess ABG Hemoglobin Oxyhemoglobin Sodium Potassium Chloride Carbon Dioxide BUN 31 H Creatinine Glucose 101 H POC Glucose 115 H 107 H Lactic Acid Calcium 7.7 L Phosphorus Magnesium AST ALT Alkaline Phosphatase Lactate Dehydrogenase Troponin T C-Reactive Protein NT-Pro-B Natriuret Pep Total Protein Albumin LDL Cholesterol Direct Vitamin B12 Crossmatch 11/24/21 11/24/21 11/25/21 16:34 17:57 05:12 WBC RBC 3.11 L Hgb 8.2 L Hct 26.6 L MCV MCH 26 L MCHC RDW 21.3 H Plt Count Seg Neuts % (Manual) Lymphocytes % (Manual) Seg Neutrophils # Man Lymphocytes # (Manual) Monocytes # (Manual) PT INR D-Dimer ABG pH ABG pO2 ABG HCO3 ABG O2 Saturation ABG Base Excess ABG Hemoglobin Oxyhemoglobin Sodium Potassium Chloride Carbon Dioxide BUN Creatinine Glucose POC Glucose 115 H 110 H Lactic Acid Calcium Phosphorus Magnesium AST ALT Alkaline Phosphatase Lactate Dehydrogenase Troponin T C-Reactive Protein NT-Pro-B Natriuret Pep Total Protein Albumin LDL Cholesterol Direct Vitamin B12 Crossmatch 11/25/21 11/25/21 11/26/21 05:12 11:20 05:00 WBC RBC 3.30 L Hgb 8.8 L Hct 28.2 L MCV MCH 27 L MCHC RDW 20.7 H Plt Count Seg Neuts % (Manual) Lymphocytes % (Manual) Seg Neutrophils # Man Lymphocytes # (Manual) Monocytes # (Manual) PT INR D-Dimer ABG pH ABG pO2 ABG HCO3 ABG O2 Saturation ABG Base Excess ABG Hemoglobin Oxyhemoglobin Sodium Potassium Chloride Carbon Dioxide BUN 32 H Creatinine Glucose 118 H POC Glucose 118 H Lactic Acid Calcium 8.2 L Phosphorus Magnesium AST ALT Alkaline Phosphatase Lactate Dehydrogenase Troponin T C-Reactive Protein NT-Pro-B Natriuret Pep Total Protein Albumin LDL Cholesterol Direct Vitamin B12 Crossmatch 11/26/21 11/26/21 11/26/21 05:00 05:00 05:44 WBC RBC Hgb Hct MCV MCH MCHC RDW Plt Count Seg Neuts % (Manual) Lymphocytes % (Manual) Seg Neutrophils # Man Lymphocytes # (Manual) Monocytes # (Manual) PT 16.9 H INR 1.24 H D-Dimer ABG pH ABG pO2 ABG HCO3 ABG O2 Saturation ABG Base Excess ABG Hemoglobin Oxyhemoglobin Sodium Potassium Chloride Carbon Dioxide BUN 31 H Creatinine Glucose 104 H POC Glucose 110 H Lactic Acid Calcium 7.9 L Phosphorus Magnesium AST ALT Alkaline Phosphatase Lactate Dehydrogenase Troponin T C-Reactive Protein NT-Pro-B Natriuret Pep Total Protein Albumin LDL Cholesterol Direct Vitamin B12 Crossmatch 11/26/21 11/27/21 11/27/21 23:55 07:40 07:40 WBC RBC 3.18 L Hgb 8.5 L Hct 27.0 L MCV MCH 27 L MCHC RDW 21.2 H Plt Count Seg Neuts % (Manual) Lymphocytes % (Manual) Seg Neutrophils # Man Lymphocytes # (Manual) Monocytes # (Manual) PT INR D-Dimer ABG pH ABG pO2 ABG HCO3 ABG O2 Saturation ABG Base Excess ABG Hemoglobin Oxyhemoglobin Sodium Potassium Chloride Carbon Dioxide BUN 27 H Creatinine Glucose 112 H POC Glucose 63 L Lactic Acid Calcium 7.6 L Phosphorus Magnesium AST ALT Alkaline Phosphatase Lactate Dehydrogenase Troponin T C-Reactive Protein NT-Pro-B Natriuret Pep Total Protein Albumin LDL Cholesterol Direct Vitamin B12 Crossmatch 11/27/21 11/27/21 11/27/21 12:04 13:40 13:40 WBC RBC 3.31 L Hgb 8.7 L Hct 28.0 L MCV MCH 26 L MCHC RDW 20.7 H Plt Count Seg Neuts % (Manual) Lymphocytes % (Manual) Seg Neutrophils # Man Lymphocytes # (Manual) Monocytes # (Manual) PT INR D-Dimer ABG pH ABG pO2 ABG HCO3 ABG O2 Saturation ABG Base Excess ABG Hemoglobin Oxyhemoglobin Sodium 136 L Potassium Chloride Carbon Dioxide BUN 25 H Creatinine Glucose 127 H POC Glucose 109 H Lactic Acid Calcium 7.6 L Phosphorus Magnesium 1.40 L AST ALT Alkaline Phosphatase Lactate Dehydrogenase Troponin T C-Reactive Protein NT-Pro-B Natriuret Pep Total Protein Albumin LDL Cholesterol Direct Vitamin B12 Crossmatch 11/27/21 11/27/21 11/28/21 17:44 23:33 12:20 WBC RBC Hgb Hct MCV MCH MCHC RDW Plt Count Seg Neuts % (Manual) Lymphocytes % (Manual) Seg Neutrophils # Man Lymphocytes # (Manual) Monocytes # (Manual) PT INR D-Dimer ABG pH ABG pO2 ABG HCO3 ABG O2 Saturation ABG Base Excess ABG Hemoglobin Oxyhemoglobin Sodium Potassium Chloride Carbon Dioxide BUN Creatinine Glucose POC Glucose 107 H 108 H 114 H Lactic Acid Calcium Phosphorus Magnesium AST ALT Alkaline Phosphatase Lactate Dehydrogenase Troponin T C-Reactive Protein NT-Pro-B Natriuret Pep Total Protein Albumin LDL Cholesterol Direct Vitamin B12 Crossmatch 11/29/21 11/29/21 11/29/21 00:09 03:20 03:20 WBC RBC 3.05 L Hgb 8.2 L Hct 25.8 L MCV MCH 27 L MCHC RDW 20.9 H Plt Count Seg Neuts % (Manual) Lymphocytes % (Manual) Seg Neutrophils # Man Lymphocytes # (Manual) Monocytes # (Manual) PT INR D-Dimer ABG pH ABG pO2 ABG HCO3 ABG O2 Saturation ABG Base Excess ABG Hemoglobin Oxyhemoglobin Sodium 133 L Potassium Chloride Carbon Dioxide BUN 24 H Creatinine Glucose 137 H POC Glucose 134 H Lactic Acid Calcium 7.4 L Phosphorus Magnesium AST ALT Alkaline Phosphatase Lactate Dehydrogenase Troponin T C-Reactive Protein NT-Pro-B Natriuret Pep Total Protein Albumin LDL Cholesterol Direct Vitamin B12 Crossmatch 11/29/21 11/29/21 11/29/21 05:38 11:39 17:11 WBC RBC Hgb Hct MCV MCH MCHC RDW Plt Count Seg Neuts % (Manual) Lymphocytes % (Manual) Seg Neutrophils # Man Lymphocytes # (Manual) Monocytes # (Manual) PT INR D-Dimer ABG pH ABG pO2 ABG HCO3 ABG O2 Saturation ABG Base Excess ABG Hemoglobin Oxyhemoglobin Sodium Potassium Chloride Carbon Dioxide BUN Creatinine Glucose POC Glucose 117 H 143 H 124 H Lactic Acid Calcium Phosphorus Magnesium AST ALT Alkaline Phosphatase Lactate Dehydrogenase Troponin T C-Reactive Protein NT-Pro-B Natriuret Pep Total Protein Albumin LDL Cholesterol Direct Vitamin B12 Crossmatch 11/29/21 11/30/21 11/30/21 20:15 05:40 05:40 WBC 12.6 H RBC 3.41 L Hgb 9.1 L Hct 28.9 L MCV MCH 27 L MCHC RDW 20.4 H Plt Count Seg Neuts % (Manual) Lymphocytes % (Manual) Seg Neutrophils # Man Lymphocytes # (Manual) Monocytes # (Manual) PT INR D-Dimer ABG pH ABG pO2 ABG HCO3 ABG O2 Saturation ABG Base Excess ABG Hemoglobin Oxyhemoglobin Sodium Potassium Chloride Carbon Dioxide BUN 24 H Creatinine Glucose 131 H POC Glucose Lactic Acid Calcium 7.6 L Phosphorus Magnesium AST ALT Alkaline Phosphatase Lactate Dehydrogenase Troponin T 0.045 H C-Reactive Protein NT-Pro-B Natriuret Pep Total Protein Albumin LDL Cholesterol Direct 25 L Vitamin B12 Crossmatch 11/30/21 11/30/21 12/01/21 11:29 16:51 05:00 WBC RBC 2.97 L Hgb 8.0 L Hct 25.0 L MCV MCH 27 L MCHC RDW 20.8 H Plt Count Seg Neuts % (Manual) Lymphocytes % (Manual) Seg Neutrophils # Man Lymphocytes # (Manual) Monocytes # (Manual) PT INR D-Dimer ABG pH ABG pO2 ABG HCO3 ABG O2 Saturation ABG Base Excess ABG Hemoglobin Oxyhemoglobin Sodium Potassium Chloride Carbon Dioxide BUN Creatinine Glucose POC Glucose 123 H 114 H Lactic Acid Calcium Phosphorus Magnesium AST ALT Alkaline Phosphatase Lactate Dehydrogenase Troponin T C-Reactive Protein NT-Pro-B Natriuret Pep Total Protein Albumin LDL Cholesterol Direct Vitamin B12 Crossmatch 12/01/21 12/01/21 12/01/21 05:00 05:25 11:54 WBC RBC Hgb Hct MCV MCH MCHC RDW Plt Count Seg Neuts % (Manual) Lymphocytes % (Manual) Seg Neutrophils # Man Lymphocytes # (Manual) Monocytes # (Manual) PT INR D-Dimer ABG pH ABG pO2 ABG HCO3 ABG O2 Saturation ABG Base Excess ABG Hemoglobin Oxyhemoglobin Sodium 136 L Potassium Chloride Carbon Dioxide BUN 24 H Creatinine Glucose 117 H POC Glucose 108 H 107 H Lactic Acid Calcium 7.5 L Phosphorus Magnesium 1.60 L AST ALT Alkaline Phosphatase Lactate Dehydrogenase Troponin T C-Reactive Protein NT-Pro-B Natriuret Pep Total Protein Albumin LDL Cholesterol Direct Vitamin B12 Crossmatch 12/01/21 12/02/21 12/02/21 17:40 00:07 04:20 WBC RBC 2.92 L Hgb 7.7 L Hct 24.3 L MCV MCH 26 L MCHC RDW 20.5 H Plt Count Seg Neuts % (Manual) Lymphocytes % (Manual) Seg Neutrophils # Man Lymphocytes # (Manual) Monocytes # (Manual) PT INR D-Dimer ABG pH ABG pO2 ABG HCO3 ABG O2 Saturation ABG Base Excess ABG Hemoglobin Oxyhemoglobin Sodium Potassium Chloride Carbon Dioxide BUN Creatinine Glucose POC Glucose 123 H 110 H Lactic Acid Calcium Phosphorus Magnesium AST ALT Alkaline Phosphatase Lactate Dehydrogenase Troponin T C-Reactive Protein NT-Pro-B Natriuret Pep Total Protein Albumin LDL Cholesterol Direct Vitamin B12 Crossmatch 12/02/21 12/02/21 12/02/21 04:20 11:17 18:20 WBC RBC Hgb Hct MCV MCH MCHC RDW Plt Count Seg Neuts % (Manual) Lymphocytes % (Manual) Seg Neutrophils # Man Lymphocytes # (Manual) Monocytes # (Manual) PT INR D-Dimer ABG pH ABG pO2 ABG HCO3 ABG O2 Saturation ABG Base Excess ABG Hemoglobin Oxyhemoglobin Sodium 135 L Potassium Chloride Carbon Dioxide BUN 26 H Creatinine Glucose 121 H POC Glucose 117 H 113 H Lactic Acid Calcium 7.4 L Phosphorus Magnesium AST ALT Alkaline Phosphatase Lactate Dehydrogenase Troponin T C-Reactive Protein NT-Pro-B Natriuret Pep Total Protein Albumin LDL Cholesterol Direct Vitamin B12 Crossmatch 12/03/21 12/03/21 12/03/21 00:12 04:00 04:00 WBC RBC 2.99 L Hgb 7.8 L Hct 24.6 L MCV MCH 26 L MCHC RDW 20.2 H Plt Count Seg Neuts % (Manual) Lymphocytes % (Manual) Seg Neutrophils # Man Lymphocytes # (Manual) Monocytes # (Manual) PT INR D-Dimer ABG pH ABG pO2 ABG HCO3 ABG O2 Saturation ABG Base Excess ABG Hemoglobin Oxyhemoglobin Sodium 136 L Potassium Chloride Carbon Dioxide BUN 27 H Creatinine Glucose 133 H POC Glucose 121 H Lactic Acid Calcium 7.5 L Phosphorus Magnesium AST ALT Alkaline Phosphatase Lactate Dehydrogenase Troponin T C-Reactive Protein NT-Pro-B Natriuret Pep Total Protein Albumin LDL Cholesterol Direct Vitamin B12 Crossmatch 12/03/21 12/03/21 12/03/21 06:30 11:13 16:00 WBC RBC Hgb Hct MCV MCH MCHC RDW Plt Count Seg Neuts % (Manual) Lymphocytes % (Manual) Seg Neutrophils # Man Lymphocytes # (Manual) Monocytes # (Manual) PT INR D-Dimer ABG pH ABG pO2 ABG HCO3 ABG O2 Saturation ABG Base Excess ABG Hemoglobin Oxyhemoglobin Sodium Potassium Chloride Carbon Dioxide BUN Creatinine Glucose POC Glucose 129 H 125 H 125 H Lactic Acid Calcium Phosphorus Magnesium AST ALT Alkaline Phosphatase Lactate Dehydrogenase Troponin T C-Reactive Protein NT-Pro-B Natriuret Pep Total Protein Albumin LDL Cholesterol Direct Vitamin B12 Crossmatch 12/03/21 12/04/21 12/04/21 23:32 04:00 05:36 WBC RBC Hgb Hct MCV MCH MCHC RDW Plt Count Seg Neuts % (Manual) Lymphocytes % (Manual) Seg Neutrophils # Man Lymphocytes # (Manual) Monocytes # (Manual) PT INR D-Dimer ABG pH ABG pO2 ABG HCO3 ABG O2 Saturation ABG Base Excess ABG Hemoglobin Oxyhemoglobin Sodium Potassium 3.5 L Chloride Carbon Dioxide BUN 26 H Creatinine 0.5 L Glucose 151 H POC Glucose 133 H 142 H Lactic Acid Calcium 8.3 L Phosphorus Magnesium AST ALT Alkaline Phosphatase Lactate Dehydrogenase Troponin T C-Reactive Protein NT-Pro-B Natriuret Pep Total Protein Albumin LDL Cholesterol Direct Vitamin B12 Crossmatch 12/04/21 12/04/21 12/05/21 11:24 15:58 04:36 WBC RBC Hgb Hct MCV MCH MCHC RDW Plt Count Seg Neuts % (Manual) Lymphocytes % (Manual) Seg Neutrophils # Man Lymphocytes # (Manual) Monocytes # (Manual) PT INR D-Dimer ABG pH ABG pO2 ABG HCO3 ABG O2 Saturation ABG Base Excess ABG Hemoglobin Oxyhemoglobin Sodium Potassium Chloride Carbon Dioxide BUN 21 H Creatinine 0.5 L Glucose 119 H POC Glucose 130 H 111 H Lactic Acid Calcium 8.3 L Phosphorus Magnesium AST ALT Alkaline Phosphatase Lactate Dehydrogenase Troponin T C-Reactive Protein NT-Pro-B Natriuret Pep Total Protein Albumin LDL Cholesterol Direct Vitamin B12 Crossmatch 12/05/21 12/05/21 12/05/21 05:15 10:40 11:12 WBC RBC 2.98 L Hgb 8.1 L Hct 24.6 L MCV MCH 27 L MCHC RDW 20.8 H Plt Count Seg Neuts % (Manual) Lymphocytes % (Manual) Seg Neutrophils # Man Lymphocytes # (Manual) Monocytes # (Manual) PT INR D-Dimer ABG pH ABG pO2 ABG HCO3 ABG O2 Saturation ABG Base Excess ABG Hemoglobin Oxyhemoglobin Sodium Potassium Chloride Carbon Dioxide BUN Creatinine Glucose POC Glucose 107 H 110 H Lactic Acid Calcium Phosphorus Magnesium AST ALT Alkaline Phosphatase Lactate Dehydrogenase Troponin T C-Reactive Protein NT-Pro-B Natriuret Pep Total Protein Albumin LDL Cholesterol Direct Vitamin B12 Crossmatch 12/05/21 12/06/21 12/06/21 23:39 04:25 04:25 WBC RBC 2.95 L Hgb 7.9 L Hct 24.7 L MCV MCH 27 L MCHC RDW 20.9 H Plt Count Seg Neuts % (Manual) Lymphocytes % (Manual) Seg Neutrophils # Man Lymphocytes # (Manual) Monocytes # (Manual) PT INR D-Dimer ABG pH ABG pO2 ABG HCO3 ABG O2 Saturation ABG Base Excess ABG Hemoglobin Oxyhemoglobin Sodium Potassium Chloride Carbon Dioxide BUN 22 H Creatinine 0.5 L Glucose 136 H POC Glucose 118 H Lactic Acid Calcium 8.2 L Phosphorus Magnesium AST ALT Alkaline Phosphatase Lactate Dehydrogenase Troponin T C-Reactive Protein NT-Pro-B Natriuret Pep Total Protein Albumin LDL Cholesterol Direct Vitamin B12 Crossmatch 12/06/21 12/06/21 12/07/21 05:28 11:27 04:00 WBC RBC Hgb 7.2 L Hct 21.8 L MCV MCH MCHC RDW Plt Count Seg Neuts % (Manual) Lymphocytes % (Manual) Seg Neutrophils # Man Lymphocytes # (Manual) Monocytes # (Manual) PT INR D-Dimer ABG pH ABG pO2 ABG HCO3 ABG O2 Saturation ABG Base Excess ABG Hemoglobin Oxyhemoglobin Sodium Potassium Chloride Carbon Dioxide BUN Creatinine Glucose POC Glucose 142 H 126 H Lactic Acid Calcium Phosphorus Magnesium AST ALT Alkaline Phosphatase Lactate Dehydrogenase Troponin T C-Reactive Protein NT-Pro-B Natriuret Pep Total Protein Albumin LDL Cholesterol Direct Vitamin B12 Crossmatch 12/07/21 12/07/21 12/07/21 04:00 05:30 11:12 WBC RBC Hgb Hct MCV MCH MCHC RDW Plt Count Seg Neuts % (Manual) Lymphocytes % (Manual) Seg Neutrophils # Man Lymphocytes # (Manual) Monocytes # (Manual) PT INR D-Dimer ABG pH ABG pO2 ABG HCO3 ABG O2 Saturation ABG Base Excess ABG Hemoglobin Oxyhemoglobin Sodium Potassium Chloride Carbon Dioxide BUN 22 H Creatinine Glucose 119 H POC Glucose 121 H 124 H Lactic Acid Calcium 8.0 L Phosphorus Magnesium AST ALT Alkaline Phosphatase Lactate Dehydrogenase Troponin T C-Reactive Protein NT-Pro-B Natriuret Pep Total Protein Albumin LDL Cholesterol Direct Vitamin B12 Crossmatch 12/08/21 12/08/21 12/08/21 04:00 04:00 05:39 WBC RBC 2.81 L Hgb 7.7 L Hct 23.5 L MCV MCH MCHC RDW 21.2 H Plt Count Seg Neuts % (Manual) Lymphocytes % (Manual) Seg Neutrophils # Man Lymphocytes # (Manual) Monocytes # (Manual) PT INR D-Dimer ABG pH ABG pO2 ABG HCO3 ABG O2 Saturation ABG Base Excess ABG Hemoglobin Oxyhemoglobin Sodium 135 L Potassium Chloride Carbon Dioxide BUN 23 H Creatinine Glucose 109 H POC Glucose 112 H Lactic Acid Calcium Phosphorus Magnesium AST ALT Alkaline Phosphatase Lactate Dehydrogenase Troponin T C-Reactive Protein NT-Pro-B Natriuret Pep Total Protein Albumin LDL Cholesterol Direct Vitamin B12 Crossmatch 12/08/21 12/09/21 12/09/21 11:03 04:20 04:20 WBC RBC 2.67 L Hgb 7.6 L Hct 22.1 L MCV MCH MCHC RDW 20.8 H Plt Count Seg Neuts % (Manual) Lymphocytes % (Manual) Seg Neutrophils # Man Lymphocytes # (Manual) Monocytes # (Manual) PT INR D-Dimer ABG pH ABG pO2 ABG HCO3 ABG O2 Saturation ABG Base Excess ABG Hemoglobin Oxyhemoglobin Sodium 135 L Potassium Chloride 97.8 L Carbon Dioxide BUN 26 H Creatinine Glucose 119 H POC Glucose 108 H Lactic Acid Calcium 7.7 L Phosphorus Magnesium AST ALT Alkaline Phosphatase Lactate Dehydrogenase Troponin T C-Reactive Protein NT-Pro-B Natriuret Pep Total Protein Albumin LDL Cholesterol Direct Vitamin B12 Crossmatch 12/09/21 12/10/21 12/10/21 11:26 04:33 11:12 WBC RBC Hgb Hct MCV MCH MCHC RDW Plt Count Seg Neuts % (Manual) Lymphocytes % (Manual) Seg Neutrophils # Man Lymphocytes # (Manual) Monocytes # (Manual) PT INR D-Dimer ABG pH ABG pO2 ABG HCO3 ABG O2 Saturation ABG Base Excess ABG Hemoglobin Oxyhemoglobin Sodium 136 L Potassium Chloride Carbon Dioxide BUN 27 H Creatinine Glucose 117 H POC Glucose 110 H 117 H Lactic Acid Calcium 8.2 L Phosphorus Magnesium AST ALT Alkaline Phosphatase Lactate Dehydrogenase Troponin T C-Reactive Protein NT-Pro-B Natriuret Pep Total Protein Albumin LDL Cholesterol Direct Vitamin B12 Crossmatch 12/10/21 12/10/21 12/11/21 16:02 23:31 04:35 WBC RBC 2.57 L Hgb 7.0 L Hct 21.4 L MCV MCH 27 L MCHC RDW 21.1 H Plt Count Seg Neuts % (Manual) Lymphocytes % (Manual) Seg Neutrophils # Man Lymphocytes # (Manual) Monocytes # (Manual) PT INR D-Dimer ABG pH ABG pO2 ABG HCO3 ABG O2 Saturation ABG Base Excess ABG Hemoglobin Oxyhemoglobin Sodium Potassium Chloride Carbon Dioxide BUN Creatinine Glucose POC Glucose 137 H 111 H Lactic Acid Calcium Phosphorus Magnesium AST ALT Alkaline Phosphatase Lactate Dehydrogenase Troponin T C-Reactive Protein NT-Pro-B Natriuret Pep Total Protein Albumin LDL Cholesterol Direct Vitamin B12 Crossmatch 12/11/21 12/11/21 12/11/21 04:35 12:46 16:07 WBC RBC Hgb Hct MCV MCH MCHC RDW Plt Count Seg Neuts % (Manual) Lymphocytes % (Manual) Seg Neutrophils # Man Lymphocytes # (Manual) Monocytes # (Manual) PT INR D-Dimer ABG pH ABG pO2 ABG HCO3 ABG O2 Saturation ABG Base Excess ABG Hemoglobin Oxyhemoglobin Sodium 136 L Potassium Chloride Carbon Dioxide BUN 27 H Creatinine Glucose 112 H POC Glucose 115 H 111 H Lactic Acid Calcium 7.6 L Phosphorus Magnesium AST ALT Alkaline Phosphatase Lactate Dehydrogenase Troponin T C-Reactive Protein NT-Pro-B Natriuret Pep Total Protein Albumin LDL Cholesterol Direct Vitamin B12 Crossmatch 12/11/21 12/12/21 12/12/21 23:42 04:30 04:30 WBC RBC 2.60 L Hgb 7.1 L Hct 21.5 L MCV MCH 27 L MCHC RDW 20.3 H Plt Count Seg Neuts % (Manual) Lymphocytes % (Manual) Seg Neutrophils # Man Lymphocytes # (Manual) Monocytes # (Manual) PT INR D-Dimer ABG pH ABG pO2 ABG HCO3 ABG O2 Saturation ABG Base Excess ABG Hemoglobin Oxyhemoglobin Sodium 135 L Potassium Chloride 97.9 L Carbon Dioxide BUN 26 H Creatinine 0.5 L Glucose 138 H POC Glucose 115 H Lactic Acid Calcium 8.2 L Phosphorus Magnesium AST ALT Alkaline Phosphatase Lactate Dehydrogenase Troponin T C-Reactive Protein NT-Pro-B Natriuret Pep Total Protein Albumin LDL Cholesterol Direct Vitamin B12 Crossmatch 12/12/21 12/12/21 12/12/21 04:30 05:10 11:51 WBC RBC Hgb Hct MCV MCH MCHC RDW Plt Count Seg Neuts % (Manual) Lymphocytes % (Manual) Seg Neutrophils # Man Lymphocytes # (Manual) Monocytes # (Manual) PT INR D-Dimer ABG pH ABG pO2 ABG HCO3 ABG O2 Saturation ABG Base Excess ABG Hemoglobin Oxyhemoglobin Sodium Potassium Chloride Carbon Dioxide BUN Creatinine Glucose POC Glucose 119 H 119 H Lactic Acid Calcium Phosphorus Magnesium AST ALT Alkaline Phosphatase Lactate Dehydrogenase Troponin T C-Reactive Protein NT-Pro-B Natriuret Pep Total Protein Albumin LDL Cholesterol Direct Vitamin B12 Crossmatch See Detail 12/13/21 12/13/21 12/13/21 00:52 04:00 04:00 WBC RBC 2.73 L Hgb 7.4 L Hct 22.8 L MCV MCH 27 L MCHC RDW 20.5 H Plt Count Seg Neuts % (Manual) Lymphocytes % (Manual) Seg Neutrophils # Man Lymphocytes # (Manual) Monocytes # (Manual) PT INR D-Dimer ABG pH ABG pO2 ABG HCO3 ABG O2 Saturation ABG Base Excess ABG Hemoglobin Oxyhemoglobin Sodium 134 L Potassium Chloride 96.7 L Carbon Dioxide BUN 23 H Creatinine 0.5 L Glucose 131 H POC Glucose 131 H Lactic Acid Calcium 8.1 L Phosphorus Magnesium AST ALT Alkaline Phosphatase Lactate Dehydrogenase Troponin T C-Reactive Protein NT-Pro-B Natriuret Pep Total Protein Albumin LDL Cholesterol Direct Vitamin B12 Crossmatch 12/13/21 12/13/21 12/13/21 05:23 12:11 17:18 WBC RBC Hgb Hct MCV MCH MCHC RDW Plt Count Seg Neuts % (Manual) Lymphocytes % (Manual) Seg Neutrophils # Man Lymphocytes # (Manual) Monocytes # (Manual) PT INR D-Dimer ABG pH ABG pO2 ABG HCO3 ABG O2 Saturation ABG Base Excess ABG Hemoglobin Oxyhemoglobin Sodium Potassium Chloride Carbon Dioxide BUN Creatinine Glucose POC Glucose 121 H 143 H 148 H Lactic Acid Calcium Phosphorus Magnesium AST ALT Alkaline Phosphatase Lactate Dehydrogenase Troponin T C-Reactive Protein NT-Pro-B Natriuret Pep Total Protein Albumin LDL Cholesterol Direct Vitamin B12 Crossmatch 12/14/21 12/14/21 12/14/21 00:54 04:20 04:20 WBC RBC 2.39 L Hgb 6.5 L Hct 20.3 L MCV MCH 27 L MCHC RDW 20.3 H Plt Count Seg Neuts % (Manual) Lymphocytes % (Manual) Seg Neutrophils # Man Lymphocytes # (Manual) Monocytes # (Manual) PT INR D-Dimer ABG pH ABG pO2 ABG HCO3 ABG O2 Saturation ABG Base Excess ABG Hemoglobin Oxyhemoglobin Sodium 130 L Potassium Chloride 93.5 L Carbon Dioxide BUN 25 H Creatinine Glucose 123 H POC Glucose 123 H Lactic Acid Calcium 8.0 L Phosphorus Magnesium AST ALT Alkaline Phosphatase Lactate Dehydrogenase Troponin T C-Reactive Protein NT-Pro-B Natriuret Pep Total Protein Albumin LDL Cholesterol Direct Vitamin B12 Crossmatch 12/14/21 12/14/21 12/14/21 05:06 08:17 10:30 WBC RBC Hgb Hct MCV MCH MCHC RDW Plt Count Seg Neuts % (Manual) Lymphocytes % (Manual) Seg Neutrophils # Man Lymphocytes # (Manual) Monocytes # (Manual) PT INR D-Dimer ABG pH ABG pO2 ABG HCO3 ABG O2 Saturation ABG Base Excess ABG Hemoglobin Oxyhemoglobin Sodium Potassium Chloride Carbon Dioxide BUN Creatinine Glucose POC Glucose 131 H 119 H Lactic Acid Calcium Phosphorus Magnesium AST ALT Alkaline Phosphatase Lactate Dehydrogenase Troponin T C-Reactive Protein NT-Pro-B Natriuret Pep Total Protein Albumin LDL Cholesterol Direct Vitamin B12 Crossmatch See Detail 12/14/21 12/14/21 12/14/21 12:15 16:37 23:27 WBC RBC Hgb Hct MCV MCH MCHC RDW Plt Count Seg Neuts % (Manual) Lymphocytes % (Manual) Seg Neutrophils # Man Lymphocytes # (Manual) Monocytes # (Manual) PT INR D-Dimer ABG pH ABG pO2 ABG HCO3 ABG O2 Saturation ABG Base Excess ABG Hemoglobin Oxyhemoglobin Sodium Potassium Chloride Carbon Dioxide BUN Creatinine Glucose POC Glucose 147 H 141 H 130 H Lactic Acid Calcium Phosphorus Magnesium AST ALT Alkaline Phosphatase Lactate Dehydrogenase Troponin T C-Reactive Protein NT-Pro-B Natriuret Pep Total Protein Albumin LDL Cholesterol Direct Vitamin B12 Crossmatch 12/15/21 12/15/21 12/15/21 05:00 07:00 07:00 WBC 12.3 H RBC 3.27 L Hgb 8.8 L Hct 27.5 L D MCV MCH 27 L MCHC RDW 19.0 H Plt Count Seg Neuts % (Manual) Lymphocytes % (Manual) Seg Neutrophils # Man Lymphocytes # (Manual) Monocytes # (Manual) PT INR D-Dimer ABG pH ABG pO2 ABG HCO3 ABG O2 Saturation ABG Base Excess ABG Hemoglobin Oxyhemoglobin Sodium 134 L Potassium Chloride 95.7 L Carbon Dioxide BUN 28 H Creatinine Glucose 129 H POC Glucose 129 H Lactic Acid Calcium 8.2 L Phosphorus Magnesium AST ALT Alkaline Phosphatase Lactate Dehydrogenase Troponin T C-Reactive Protein NT-Pro-B Natriuret Pep Total Protein Albumin LDL Cholesterol Direct Vitamin B12 Crossmatch 12/15/21 12/15/21 12/15/21 11:18 16:00 23:39 WBC RBC Hgb Hct MCV MCH MCHC RDW Plt Count Seg Neuts % (Manual) Lymphocytes % (Manual) Seg Neutrophils # Man Lymphocytes # (Manual) Monocytes # (Manual) PT INR D-Dimer ABG pH ABG pO2 ABG HCO3 ABG O2 Saturation ABG Base Excess ABG Hemoglobin Oxyhemoglobin Sodium Potassium Chloride Carbon Dioxide BUN Creatinine Glucose POC Glucose 139 H 137 H 146 H Lactic Acid Calcium Phosphorus Magnesium AST ALT Alkaline Phosphatase Lactate Dehydrogenase Troponin T C-Reactive Protein NT-Pro-B Natriuret Pep Total Protein Albumin LDL Cholesterol Direct Vitamin B12 Crossmatch 12/16/21 12/16/21 12/16/21 05:24 10:21 10:21 WBC 15.3 H RBC 3.24 L Hgb 8.9 L Hct 27.7 L MCV MCH MCHC RDW 19.0 H Plt Count Seg Neuts % (Manual) Lymphocytes % (Manual) Seg Neutrophils # Man Lymphocytes # (Manual) Monocytes # (Manual) PT INR D-Dimer ABG pH ABG pO2 ABG HCO3 ABG O2 Saturation ABG Base Excess ABG Hemoglobin Oxyhemoglobin Sodium 131 L Potassium 3.5 L Chloride 92.7 L Carbon Dioxide BUN 36 H Creatinine Glucose 160 H POC Glucose 121 H Lactic Acid Calcium Phosphorus Magnesium 1.60 L AST ALT Alkaline Phosphatase Lactate Dehydrogenase Troponin T C-Reactive Protein NT-Pro-B Natriuret Pep Total Protein Albumin LDL Cholesterol Direct Vitamin B12 Crossmatch 12/16/21 11:21 WBC RBC Hgb Hct MCV MCH MCHC RDW Plt Count Seg Neuts % (Manual) Lymphocytes % (Manual) Seg Neutrophils # Man Lymphocytes # (Manual) Monocytes # (Manual) PT INR D-Dimer ABG pH ABG pO2 ABG HCO3 ABG O2 Saturation ABG Base Excess ABG Hemoglobin Oxyhemoglobin Sodium Potassium Chloride Carbon Dioxide BUN Creatinine Glucose POC Glucose 153 H Lactic Acid Calcium Phosphorus Magnesium AST ALT Alkaline Phosphatase Lactate Dehydrogenase Troponin T C-Reactive Protein NT-Pro-B Natriuret Pep Total Protein Albumin LDL Cholesterol Direct Vitamin B12 Crossmatch Allied health notes reviewed: nursing
[2021-12-16] MEDS: ACETAMINOPHEN 325 MG/10.15 ML ORAL LIQD UNIT DOSE FEEDTUBE PRN (13:34)
[2021-12-16] MEDS ORDERED: MAGNESIUM SULFATE 4 GM/100 ML BAG IV ONE (14:00)
[2021-12-16] MEDS ORDERED: POTASSIUM CHLORIDE 20 MEQ PACKET FEEDTUBE ONE (14:00)
--- NOTE | 2021-12-16 14:31 | Progress Note ---
Assessment and Plan Cultures: SARS CoV2 PCR: negative 11/03/2021 blood culture: Group B streptococcus 11/04/2021 blood culture: no growth 11/11/2021 blood culture: No growth A/P: 81-year-old female with diabetes mellitus, hypertension, arthritis was admitted with shortness of breath. She was also having fever: #Acute fevers: nclear source. Possibly too high for DVT fevers. Would rule out other sources such as CLABSI and UTI given her lines and Rachel #Severe sepsis with shock, secondary to bilateral pneumonia: likely from Group B Strep. COVID-19 negative. Resolved #Group B Strep bacteremia: Likely secondary to above, no other source identified, other possibility is mild lower extremity cellulitis. Does have indwelling cardiac device, per patient it is a pacemaker. TTE showed no valvular or lead vegetations #Acute hypoxic respiratory failure: Secondary to above. Tracheostomy, on the vent. #Acute DVT: unable to anticoagulate Recs: -Discussed with Dr. Day, agree with cefepime and vancomycin for now. -Check blood and urine cultures. Will follow. Mahogany Montes MD [facility] O: [phone] F: [phone] Subjective Date of service: 12/16/21 Principal diagnosis: Septic shock; AHRF; Anemia; Pneumonia; pleural effusion; HFrEF; Pulm HTN Interval history: Called back to case ICU team due to new onset fevers up to one oh one, white c ount is not 15.3. She has not had a DVT that is untreatable she cannot tolerate any anticoagulation. Objective - Exam Narrative Exam: Physical exam deferred to reduce risk of transmission of COVID-19. Please refer to primary team's note. - Constitutional Vitals: Vital Signs Temp Pulse Resp BP Pulse Ox 101 F H 93 H 12 117/45 87 12/16/21 12:00 12/16/21 13:30 12/16/21 13:30 12/16/21 13:30 12/16/21 13:30 Temperature -Last 24 Hours Temperature 101 F Temperature 99.9 F Temperature 99.7 F Temperature 99.4 F Temperature 99.2 F Temperature 100.1 F - Labs CBC & Chem 7: 12/16/21 10:21 12/16/21 10:21 Labs: Abnormal lab results 12/15/21 12/15/21 12/16/21 Range/Units 16:00 23:39 05:24 WBC (4.5-11.0) K/mm3 RBC (3.65-5.03) M/mm3 Hgb (10.1-14.3) gm/dl Hct (30.3-42.9) % RDW (13.2-15.2) % Sodium (137-145) mmol/L Potassium (3.6-5.0) mmol/L Chloride (98-107) mmol/L BUN (7-17) mg/dL Glucose (65-100) mg/dL POC Glucose 137 H 146 H 121 H (70-105) mg/dL Magnesium (1.7-2.3) mg/dL 12/16/21 12/16/21 12/16/21 Range/Units 10:21 10:21 11:21 WBC 15.3 H (4.5-11.0) K/mm3 RBC 3.24 L (3.65-5.03) M/mm3 Hgb 8.9 L (10.1-14.3) gm/dl Hct 27.7 L (30.3-42.9) % RDW 19.0 H (13.2-15.2) % Sodium 131 L (137-145) mmol/L Potassium 3.5 L (3.6-5.0) mmol/L Chloride 92.7 L (98-107) mmol/L BUN 36 H (7-17) mg/dL Glucose 160 H (65-100) mg/dL POC Glucose 153 H (70-105) mg/dL Magnesium 1.60 L (1.7-2.3) mg/dL
[2021-12-16] MEDS: VANCOMYCIN/NS 1 GM/250 ML 1 GM/250 ML BAG IV SCH (15:12)
[2021-12-16] MEDS: CEFEPIME/NS 2 GM/100 ML 2 GM/100 ML BAG IV SCH (16:05)
[2021-12-16 21:17] LABS: ABG Base Excess 3.6 mmol/L (-2.0-3.0); ABG HCO3 27.3 mmol/L (20.0-26.0); ABG Methemoglobin 0.5 % (0.0-1.5); ABG PCO2 37.5 mm Hg; ABG PH 7.479 pH Units (7.350-7.450); ABG PO2 79.3 mm Hg (80.0-90.0)
[2021-12-16] MEDS: MELATONIN 5 MG TAB PO SCH (21:25)
[2021-12-16] MEDS: traZODone 50 MG TAB PO SCH (21:25)
[2021-12-16] MEDS: QUEtiapine 25 MG TAB PO SCH (21:25)
[2021-12-16] MEDS: PRAVASTATIN 20 MG TAB PO SCH (21:26)
[2021-12-16] MEDS: MIDODRINE 5 MG TAB PO SCH (21:27)
[2021-12-17] MEDS: CEFEPIME/NS 2 GM/100 ML 2 GM/100 ML BAG IV SCH ×2 (03:51→13:41)
[2021-12-17 04:52] LABS: Mean Corpuscular HGB Conc 33 % (30-34); Mean Corpuscular Volume 84 fl (79-97); Platelet Count 174 K/mm3 (140-440); Red Blood Count 2.16 M/mm3 (3.65-5.03); Red Cell Distribution Width 19.4 % (13.2-15.2)
[2021-12-17 05:05] LABS: Hematocrit 18.1 % (30.3-42.9)
[2021-12-17] MEDS ORDERED: SODIUM CHLORIDE 0.9% 500 ML 500 ML IV ONE (05:09)
[2021-12-17 05:15] LABS: Blood Urea Nitrogen 32 mg/dL (7-17); Calcium 6.8 mg/dL (8.4-10.2); Hemolysis Index 2
[2021-12-17 05:31] LABS: BUN/Creatinine Ratio 53
[2021-12-17] MEDS: LEVOTHYROXINE 125 MCG TAB PO SCH (06:18)
[2021-12-17] MEDS: SUCRALFATE 1 GM/10 ML ORAL LIQD PO SCH ×4 (08:20→21:21)
[2021-12-17] MEDS: HYDROcodone/ACETAMINOPHEN 10-325MG TAB FEEDTUBE SCH ×3 (08:21→21:21)
[2021-12-17] MEDS: MIDODRINE 5 MG TAB PO SCH ×2 (08:21→21:22)
[2021-12-17] MEDS: GABAPENTIN 100 MG CAP PO SCH (09:39)
[2021-12-17] MEDS: METOPROLOL TARTRATE 25 MG TAB PO SCH ×2 (09:39→21:21)
[2021-12-17] MEDS: LANSOPRAZOLE 30 MG SOLUTAB FEEDTUBE SCH ×2 (09:39→21:22)
[2021-12-17] MEDS: busPIRone 5 MG TAB PO SCH ×2 (09:40→21:21)
[2021-12-17] MEDS: DOCUSATE SODIUM 100 MG/10 ML ORAL LIQD PO SCH ×2 (09:40→21:22)
[2021-12-17] MEDS: SENNOSIDES ORAL LIQD 8.8 MG/5 ML ORAL LIQD PO SCH ×2 (09:41→21:22)
[2021-12-17] MEDS: FUROSEMIDE 20 MG TAB PO SCH (09:41)
[2021-12-17] MEDS: POLYETHYLENE GLYCOL 3350 17 GM POWDER PO SCH (09:41)
[2021-12-17] MEDS: POTASSIUM CHLORIDE 20 MEQ PACKET FEEDTUBE SCH ×2 (09:45→21:21)
--- NOTE | 2021-12-17 10:54 | Progress Note ---
<LONNIE MAURICE - Last Filed: 12/17/21 16:58> Assessment and Plan Assessment and plan: This is a 81-year-old female with known history of diabetes mellitus, hypertension, PPM, and arthritis admitted for sepsis and acute hypoxia respiratory failure 2/2 bilateral pneumonia requiring intubation and ventilatory support Hospital Course to date: 11/04/2021: Empiric therapy with iv levaquin/vancomycin. COVID PCR pending. Will consult ID. PCCM consulted, will follow recs. Hypotensive this AM, ordered bolus and fluids at 150 cc/hr. May require pressor support if bp does not improve. 11/05/2021: GBS on bcx +, currently on rocephin IV. Currently on bipap due to respiratory distress overnight. Worsening BL opacities on CXR. May be volume overload vs pneumonia. Unfortunately bp too low for lasix at this point. WIll continue levophed and bipap. Once able to tolerate, may do trial of albumin/lasi x. Call attempt made to [facility], no response. Will try again tomorrow to update. 11/06/2021: Decompensated overnight requiring intubation. CXR shows worsening interstitial infiltrates. Currenlty on dopamine, levophed, vasopressin. PICC line ordered. Advised RN to place gamble for I/O monitoring. Would benefit from diuresis but very volume overloaded. Prognosis guarded 11/08: Off sedation this am, remains unresponsive only grimace to pain. Hold all sedatives agents for now, patient is off pressors this am. Hypernatremia from today's lab- D5W X1bag, and low K repleted, repeat lab in the am. Severe constipation also noted from KUB, BR added. 11/09: Sudden SPO2 drop in the 60s this am. Patient was manually bagged and deep suctioned. Patient is currently stable on the vent, repeat CXR with no significant change. D/w CCM Mucomyst and brochodilator added. Patient mentation is unchanged, continue to hold off on sedative agents. Neurology consulted. 11/10: Acute DVT noted on bilateral lower extremity Doppler ultrasound therefore she was started on Lovenox treatment dose. Failed SBT. Hypernatremia and hyperchloremia noted, free water flush adjusted. 11/11: Patient noted to be febrile with increasing of the cytosis, UA/BC sent and CXR ordered. ID escalated antibiotics to cefepime. CXR demonstrated mucous plug, bedside bronchoscopy was performed and O ETT was changed over bougie from 6 cm to 7.5. Patient was noted to have a pneumothorax postprocedure and chest tube was placed. Family updated by [facility]. Free water flush increased and will add Jaswant supplementation. 11/12: Patient not noted to follow commands, hypernatremia worsen/persist, increasing free water flush, potassium and magnesium and phosphorus repleted. Hemoglobin noted to be 7.1/24.5 from 7.03/12 yesterday. We will continue to trend and monitor. Vent changes per [facility]. Repeat CXR showed no residual pneumo thorax. Consider waterseal tomorrow. Given persistent leukocytosis antibiotics escalated to cefepime per ID. 11/13: Remains on cefepime and vancomycin, vent changes per [facility]. Anemia noted and given 1 unit PRBC. And beta-charleen held in setting of Levophed drip infusing. Remains on fentanyl drip. 11/14: Patient put on CPAP trial by [facility], will continue chest tube until after extubation. Will rest on assist control. CT brain was cancelled by [employer] and reordered. 11/15: Patient removed chest tube overnight. Will obtain cxr. remains on low dose levo. CTH completed with no acute findings. RT to place on CPAP. 11/16: Hypernatremia/hyperchloremia noted on the increase of day water flushes. Anemia noted and ordered PRBC. asked RT to place on cpap but not done yet 11/17: Patient remains on the vent, awake and following commands. H&H stable s/p 2units PRBCs. GI on consult, no intervention at this time. Will continue protonix gtt and serial H&H Q6hrs. Keep patient NPO for now, D5w added for hypernatremia and NPO status. Plan for IVC filter placement today by Vascular. 11/18: Patient is s/p IVC filter. H&H continue to trend down, hbg 6.1 this am, 1 unit of PRBCs ordered. Plan for possible EGD today by GI. Keep patient NPO, continue PPI drip and serial H&H Q6hrs. Electrolytes repleted, repeat lab in the am 11/19: S/p EGD- larger duodenal ulcer noted, see operative note. GI recommendat ions noted also noted. H&H stable this am. Keep patient on protonix gtt for now. Will keep patient NPO, continue IVF and serial H&H for now. Electrolytes repleted, repeat labs in the am 2/3: Very agitated and restless this am, fentanyl gtt resumed. Patient remains on protonix gtt, H&H remains stable. Will switch protonix gtt to IV BID, continue carafate and okay to resume meds at this time. Will F/u with GI to see if TF can be resumed. Gamble was reinserted overnight for retention. Electrolytes repleted, repeat in the am. Plan for possible PST today for possible extubation per CCM. 11/21: Patient is now on seroquel and patient's home buspar resumed. Patient more calm this morning, fentanyl gtt is off. H&H remains stable and patient is tolerating TF. Patient had a runs of Vtach/PVCs this am, BB added per Cardio. Continue daily PS and wean trial for possible extubation. 11/22: Back on fentanyl gtt overnight , RASS o to -1, following commands. Patient failed PST this am due to increased work of breathing and low SPO2, ABG pending. Patient is also with worsen pitting edema, lasix is still on hold. Will discuss with cardio and CCM to possibly resume lasix. 11/23: MARIA DEL CARMEN overnight. Patient failed PST again this am. Per CCM plan for possible trach and PEG, hold off on IV lasix for now. General surgery consulted and family is aware of possible Trach and PEG. 11/24: Trach/PEG pending this week, continue SBT/SAT as tolerated. No acute events reported overnight. 11/25: Patient was n.p.o. overnight and will remain n.p.o. tonight for trach/PEG tomorrow morning. She failed to support trial again. KUB obtained due to distended belly. 11/26: Patient scheduled for tracheostomy and PEG tube placement today, has been n.p.o. since midnight. No acute events reported overnight. [facility] ordered rosalinda thicone scheduled. 11/27: No acute events reported overnight, patient received trach/PEG yesterday. Has been on feedings since last night. Still awaiting LTAC placement. 11/28: Patient magnesium repleted, repeat a.m. labs, SBT 11/29: Patient complains of chest pain but ECG obtained which showed no acute findings, ordered troponin. Patient failed CPAP yesterday and was trialed again today. levophed was restarted but will aggressively wean 11/30: Patient failed SBT. Continue supportive care. Started gabapentin today 12/01: MARIA DEL CARMEN overnight. Continue daily PST. Case management to arrange possible placement 12/02: Report of dark stools overnight, patient is hemodynamically stable. H&H stable, patient is on PPI. Will continue to trend H&H. Continue daily PST as tolerated. Awaiting LTAC vs SNF placement. 12/03: Hypotensive overnight, requiring low dose pressors. S/p X3 days of gentle diurese. Will continue to monitor, wean off pressors as tolerated for MAP of 65. Patient Failed PST yesterday, case management to follow up with insurance for possible LTAC placement. Continue daily PST as tolerated. PT eval and treat ordered. 12/04: Increased agitation and anxiety overnight, remains on buspar and seroquel, trazadone added to promote rest. Patient is now working with PT, keep patient engage and awake during the day so she can rest at night. No BM for over 5 days, BR was adjusted. Patient did not tolerate PST again yesterday, continue daily PST as tolerated. Continue to titrate pressor for MAP above 65. Pending possible LTAC placement, case management to arrange. 12/05: Still not getting much rest overnight, will add melatonin for sleep. Continue to engage patient during the day and promote rest at night. TF was held due to concern for possible bleeding, H&H remains stable and stools normal this am. Resume TF and continue PPI and carafate. Remains on low dose levophed, titrate as tolerated. Continue daily PST. Possible LTAC placement, awaiting approval. 12/06: MARIA DEL CARMEN overnight. Patient rested overnight. Continue supportive measures. Daily PST as tolerated. Awaiting possible LTAC placement 12/07: MARIA DEL CARMEN overnight. Plan for Tpiece trial today. Continue current supportive measures. Possible LTAC placement 12/08: Patient placed on pressure support trial again today, started on Xanax, no acute events reported overnight. Awaiting insurance approval for LTAC. 12/09: Levophed discontinued, LTAC transfer denied, started on midodrine and Lasix, ultrasound chest pending, started on Xanax 0.[address] De León updated family at bedside today. Started on Dilaudid every 3 hours as needed. 12/10: Patient placed on CPAP trial this morning, no acute events reported overnight. Will order ultrasound-guided thoracentesis. 12/11: Patient had a thoracentesis today, will decrease Xanax dosage and continue midodrine and diuresing. Patient failed CPAP today. 12/12: Patient not tolerate CPAP trials today, no acute events reported overnight 12/13: No acute events overnight. continue PSV trials as tolerated. Daughter updated at bedside 12/14: Patient noted to be anemic today, worsened gastric occult. Patient seems to be oversedated therefore Xanax changed to as needed and fentanyl patch discontinued. We will continue to monitor hyponatremia. 12/15: MARIA DEL CARMEN overnight. s/p 1unit of PRBCs, H&H stable this am, no signs of any active bleeding. Continue daily PST as tolerated. Awaiting placement. 12/16: Hypertensive this am, Midodrine decreased. Continue daily PST. MARIA DEL CARMEN overnight 12/17: Patient Hgb dropped to 6 this am, no s/s of any active bleeding, VSS. Patient received 1unit of PRBC, will continue to trend H&H. Patient was pancultured and back on IV Abx due to persistent fevers yesterday. ID is also back on the case. Continue IV Abx per ID and f/u on cultures data for sensitivity. Patient also failed PST yesterday, continue daily PST as tolerated. Electrolytes repleted, repeat labs in the am. Assessment and Plan #Septic Shock POA #Bilateral Pneumonia #Bacteremia - Presented with fevers, leukocytosis, and hypotension - COVID PCR negative - 11/04 Bcult with 3/4 group B strep bacteremia - Repeat Bculture NGTD - 11/04 2D Echo with no evidence of vegetation - ID on consult, appreciate recommendations - Patient completed IV Abx course - Trend CBC #Acute Hypoxic Respiratory Failure 11/19 #Bilateral Pleural Effusion #Right Pneumothorax-resolved #Bilateral Pneumonia - COVID PCR negative - CXR shows Bilateral opacities, may be volume overloaded - CCM consulted, appreciate recommendations - Intubated on 1/20, ETT exchanged on 11/11 - 11/11 Bronchoscopy--Complicated by spontaneous pneumothorax - 11/11 S/p chest tube placement for right pneumothorax, removed by patient on 11/15 - 11/26 s/p Tracheostomy and PEGtube placement - 12/11 US thoracentesis due to moderate pleural effusion-1L removed - This am Vent Setting:A/C-30%,6,14,400 - On PO Lasix - Continue Nebs treatment - Continue daily PST as tolerated - VAP bundle addressed - Aspiration precaution HOB above 30 - PRN ABG and CXR per CCM - Continue SPO2 monitoring for SPO2 goal above 92% #CHF- EF 30-35% with PPM #Hypotension #Septic Kristian-resolved - SR on the monitor, HR 70-90s - 11/04 Echo-EF 30-35% - Now on Midodrine TID - Continue beta-charleen - Not on aspirin due to allergy - Statins resumed - Continue blood pressure monitor per protocol - Maintain MAP above 65 - Cardiology signed off #Acute Microcytic Anemia #Acute Blood Loss-resolved #Acute GI Bleed-resolved - s/p a total of 7units of PRBCs since admit - 11/18 EGD- Large cratered ulcer in the posterior duodenal bulb about 2 cm in diameter. Visible vessel present. Mild active oozing from the ulcer bed. A total of 3 injections were performed around the ulcer for a total of 2.5 cc of dilute epinephrine and hemostasis was obtained.--> See full report - GI signed off - Stool occult still positive - H&H dropped this am, no s/s of any active bleeding, s/p 1unit of PRBC - Continue PPI and Carafate - Continue to trend CBC - Transfuse for H&H less than 7 - Hold AC for now #Hypokalemia #Hyponatremia - Back on PO lasix - Strict intake and output - Continue to monitor and replace electrolytes as needed - Trend BMP,mag, & phosp #Urinary Retention - Gamble reinserted on 11/19 for retention - Keep gamble for now #Acute DVT in RLE - BLE doppler + Acute DVT in the right external iliac vein, common femoral vein, and superior aspect of femoral vein - Was on Therapeutic Lovenox- held to due GI Bleed - 11/17 s/p IVC filter placement by Vascular Surg #Agitation #Acute Encephalopathy-Resolved - Awake and following commands - Continue Buspar and seroquel - PRN Xanax for anxiety - CT head noted - Neurology consulted - PRN analgesia for pain management #Transaminitis/Shock Liver - Probably due to bacteria/spetic shock - Continue to Trend LFTs #Endo: h/o DM and hypothyroidism - Continue home Synthroid - Accu-Cheks every 6 - Avoid hypoglycemia The high probability of a clinically significant, sudden or life threatening deterioration of the [multi] system(s) required my full and direct attention, intervention and personal management. The aggregate critical care time was [60] minutes. This time is in addition to time spent performing reported procedures but includes the following: [x] Data Review and interpretation [x] Patient assessment and monitoring of vital signs [x] Documentation [x] Medication orders and management Disposition Plan: ICU Total Time Spent with Patient (Minutes): 60 History Interval history: Patient seen and examined at the bedside. Remains stable on the vent, AAO, following commands. MARIA DEL CARMEN overnight Hospitalist Physical - Constitutional Vitals: Temp Pulse Resp BP Pulse Ox 98.5 F 78 17 113/51 98 12/17/21 08:45 12/17/21 09:39 12/17/21 09:21 12/17/21 09:39 12/17/21 08:45 General appearance: Present: no acute distress, other (Trah and on the vent) - EENT Eyes: Present: PERRL ENT: hearing intact, clear oral mucosa - Neck Neck: Present: normal ROM - Respiratory Respiratory effort: normal Respiratory: bilateral: rhonchi - Cardiovascular Rhythm: regular Heart Sounds: Present: S1 & S2 - Extremities Extremities: no ischemia, pulses intact, pulses symmetrical Extremity abnormal: edema - Peripheral Assessment Left Upper Extremity Edema Type: Pitting Edema Degree: 2+ Capillary Refill: < 3 seconds Skin Temperature: Warm Peripheral Pulses: within normal limits - Abdominal General gastrointestinal: soft, non-distended, normal bowel sounds - Integumentary Integumentary: Present: warm, dry - Psychiatric Psychiatric: appropriate mood/affect, cooperative - Neurologic Neurologic: moves all extremities - Allied Health Allied health notes reviewed: nursing, case management HEART Score - HEART Score Troponin: Troponin T 0.045 ng/mL (0.00-0.029) H 11/29/21 20:15 Results - Labs CBC & Chem 7: 12/17/21 04:25 12/17/21 04:25 Labs: Laboratory Last Values WBC 12.3 K/mm3 (4.5-11.0) H 12/17/21 04:25 RBC 2.16 M/mm3 (3.65-5.03) L 12/17/21 04:25 Hgb 6.0 gm/dl (10.1-14.3) L 12/17/21 04:25 Hct 18.1 % (30.3-42.9) L* D 12/17/21 04:25 MCV 84 fl (79-97) 12/17/21 04:25 MCH 28 pg (28-32) 12/17/21 04:25 MCHC 33 % (30-34) 12/17/21 04:25 RDW 19.4 % (13.2-15.2) H 12/17/21 04:25 Plt Count 174 K/mm3 (140-440) 12/17/21 04:25 Add Manual Diff Complete 11/16/21 15:25 Total Counted 100 11/16/21 15:25 Seg Neutrophils % Passport Support Manager 11/06/21 15:50 Seg Neuts % (Manual) 87.0 % (40.0-70.0) H 11/16/21 15:25 Band Neutrophils % 0 % 11/16/21 15:25 Lymphocytes % (Manual) 8.0 % (13.4-35.0) L 11/16/21 15:25 Reactive Lymphs % (Man) 0 % 11/16/21 15:25 Monocytes % (Manual) 5.0 % (0.0-7.3) 11/16/21 15:25 Eosinophils % (Manual) 0 % (0.0-4.3) 11/16/21 15:25 Basophils % (Manual) 0 % (0.0-1.8) 11/16/21 15:25 Metamyelocytes % 0 % 11/16/21 15:25 Myelocytes % 0 % 11/16/21 15:25 Promyelocytes % 0 % 11/16/21 15:25 Blast Cells % 0 % 11/16/21 15:25 Nucleated RBC % Not Reportable 11/16/21 15:25 Seg Neutrophils # Man 15.0 K/mm3 (1.8-7.7) H 11/16/21 15:25 Band Neutrophils # 0.0 K/mm3 11/16/21 15:25 Lymphocytes # (Manual) 1.4 K/mm3 (1.2-5.4) 11/16/21 15:25 Abs React Lymphs (Man) 0.0 K/mm3 11/16/21 15:25 Monocytes # (Manual) 0.9 K/mm3 (0.0-0.8) H 11/16/21 15:25 Eosinophils # (Manual) 0.0 K/mm3 (0.0-0.4) 11/16/21 15:25 Basophils # (Manual) 0.0 K/mm3 (0.0-0.1) 11/16/21 15:25 Metamyelocytes # 0.0 K/mm3 11/16/21 15:25 Myelocytes # 0.0 K/mm3 11/16/21 15:25 Promyelocytes # 0.0 K/mm3 11/16/21 15:25 Blast Cells # 0.0 K/mm3 11/16/21 15:25 WBC Morphology Not Reportable 11/16/21 15:25 Hypersegmented Neuts Not Reportable 11/16/21 15:25 Hyposegmented Neuts Not Reportable 11/16/21 15:25 Hypogranular Neuts Not Reportable 11/16/21 15:25 Smudge Cells Not Reportable 11/16/21 15:25 Toxic Granulation Not Reportable 11/16/21 15:25 Toxic Vacuolation Not Reportable 11/16/21 15:25 Dohle Bodies Not Reportable 11/16/21 15:25 Pelger-Huet Anomaly Not Reportable 11/16/21 15:25 Irina Rods Not Reportable 11/16/21 15:25 Platelet Estimate Consistent w auto 11/16/21 15:25 Clumped Platelets Rare 11/16/21 15:25 Plt Clumps, EDTA Not Reportable 11/16/21 15:25 Large Platelets Not Reportable 11/16/21 15:25 Giant Platelets Not Reportable 11/16/21 15:25 Platelet Satelliting Not Reportable 11/16/21 15:25 Plt Morphology Comment Not Reportable 11/16/21 15:25 RBC Morphology Not Reportable 11/16/21 15:25 Dimorphic RBCs Not Reportable 11/16/21 15:25 Polychromasia Not Reportable 11/16/21 15:25 Hypochromasia 2+ 11/16/21 15:25 Poikilocytosis Not Reportable 11/16/21 15:25 Anisocytosis 2+ 11/16/21 15:25 Microcytosis Not Reportable 11/16/21 15:25 Macrocytosis Not Reportable 11/16/21 15:25 Spherocytes Not Reportable 11/16/21 15:25 Pappenheimer Bodies Not Reportable 11/16/21 15:25 Sickle Cells Not Reportable 11/16/21 15:25 Target Cells 2+ 11/16/21 15:25 Tear Drop Cells Not Reportable 11/16/21 15:25 Ovalocytes Not Reportable 11/16/21 15:25 Helmet Cells Not Reportable 11/16/21 15:25 Odonnell-Clyman Bodies Not Reportable 11/16/21 15:25 Carson Rings Not Reportable 11/16/21 15:25 Malcom Cells Not Reportable 11/16/21 15:25 Bite Cells Not Reportable 11/16/21 15:25 Crenated Cell Not Reportable 11/16/21 15:25 Elliptocytes Not Reportable 11/16/21 15:25 Acanthocytes (Spur) Not Reportable 11/16/21 15:25 Rouleaux Not Reportable 11/16/21 15:25 Hemoglobin C Crystals Not Reportable 11/16/21 15:25 Schistocytes Not Reportable 11/16/21 15:25 Malaria parasites Not Reportable 11/16/21 15:25 Godfrey Bodies Not Reportable 11/16/21 15:25 Hem Pathologist Commnt No 11/16/21 15:25 PT 16.9 Sec. (12.2-14.9) H 11/26/21 05:00 INR 1.24 (0.87-1.13) H 11/26/21 05:00 APTT 29.2 Sec. (24.2-36.6) 11/26/21 05:00 D-Dimer 2655.00 ng/mlDDU (0-234) H 11/11/21 04:28 ABG pH 7.479 pH Units (7.350-7.450) H 12/16/21 20:52 ABG pCO2 37.5 mm Hg 12/16/21 20:52 ABG pO2 79.3 mm Hg (80.0-90.0) L 12/16/21 20:52 ABG HCO3 27.3 mmol/L (20.0-26.0) H 12/16/21 20:52 ABG O2 Saturation 97.0 % (95.0-99.0) 12/16/21 20:52 ABG O2 Content 12.3 (0.0-44) 12/16/21 20:52 ABG Base Excess 3.6 mmol/L (-2.0-3.0) H 12/16/21 20:52 ABG Hemoglobin 9.1 gm/dl (12.0-16.0) L 12/16/21 20:52 ABG Carboxyhemoglobin 1.6 % (0.0-5.0) 12/16/21 20: ABG Methemoglobin 0.5 % (0.0-1.5) 12/16/21 20:52 Oxyhemoglobin 94.9 % (95.0-99.0) L 12/16/21 20:52 FiO2 30 % 12/16/21 20:52 Sodium 132 mmol/L (137-145) L 12/17/21 04:25 Potassium 3.2 mmol/L (3.6-5.0) L 12/17/21 04:25 Chloride 112.0 mmol/L (98-107) H 12/17/21 04:25 Carbon Dioxide 22 mmol/L (22-30) 12/17/21 04:25 Anion Gap 1 mmol/L 12/17/21 04:25 BUN 32 mg/dL (7-17) H 12/17/21 04:25 Creatinine 0.6 mg/dL (0.6-1.2) 12/17/21 04:25 Estimated GFR > 60 ml/min 12/17/21 04:25 BUN/Creatinine Ratio 53 % 12/17/21 04:25 Glucose 122 mg/dL (65-100) H 12/17/21 04:25 POC Glucose 137 mg/dL (70-105) H 12/17/21 05:30 Lactic Acid 3.70 mmol/L (0.7-2.0) H* 11/03/21 22:32 Calcium 6.8 mg/dL (8.4-10.2) L D 12/17/21 04:25 Phosphorus 2.90 mg/dL (2.5-4.5) 12/16/21 10:21 Magnesium 1.60 mg/dL (1.7-2.3) L 12/16/21 10:21 Ferritin 52.6 ng/mL (10.0-200.0) 11/05/21 06:11 Total Bilirubin 0.50 mg/dL (0.1-1.2) 11/17/21 05:56 Direct Bilirubin < 0.2 mg/dL (0-0.2) 11/11/21 04:28 Indirect Bilirubin 0.1 mg/dL 11/11/21 04:28 AST 36 units/L (5-40) 11/17/21 05:56 ALT 47 units/L (7-56) 11/17/21 05:56 Alkaline Phosphatase 107 units/L (35-129) 11/17/21 05:56 Ammonia 42.0 umol/L (25-60) 11/10/21 14:08 Lactate Dehydrogenase 187 units/L (91-180) H 11/05/21 06:11 Troponin T 0.045 ng/mL (0.00-0.029) H 11/29/21 20:15 C-Reactive Protein 22.20 mg/dL (0.00-1.30) H 11/05/21 06:11 NT-Pro-B Natriuret Pep 7895 pg/mL (0-900) H 11/03/21 22:32 Total Protein 5.1 g/dL (6.3-8.2) L 11/17/21 05:56 Albumin 2.2 g/dL (3.9-5) L 11/17/21 05:56 Albumin/Globulin Ratio 0.8 % 11/17/21 05:56 Triglycerides 59 mg/dL (2-149) 11/29/21 20:15 Cholesterol 74 mg/dL (50-199) 11/29/21 20:15 LDL Cholesterol Direct 25 mg/dL (50-130) L 11/29/21 20:15 HDL Cholesterol 41 mg/dL (40-59) 11/29/21 20:15 Cholesterol/HDL Ratio 1.80 % 11/29/21 20:15 Vitamin B12 1823 pg/mL (211-911) H 11/10/21 14:08 TSH 1.510 mlU/mL (0.270-4.200) 11/10/21 14:08 Urine Color Yellow (Yellow) 11/11/21 09:00 Urine Turbidity Slightly-cloudy (Clear) 11/11/21 09:00 Urine pH 5.0 (5.0-7.0) 11/11/21 09:00 Ur Specific [place] 1.009 (1.003-1.030) 11/11/21 09:00 Urine Protein <15 mg/dl mg/dL (Negative) 11/11/21 09:00 Urine Glucose (UA) Neg mg/dL (Negative) 11/11/21 09:00 Urine Ketones Neg mg/dL (Negative) 11/11/21 09:00 Urine Blood Mod (Negative) 11/11/21 09:00 Urine Nitrite Neg (Negative) 11/11/21 09:00 Urine Bilirubin Neg (Negative) 11/11/21 09:00 Urine Urobilinogen < 2.0 mg/dL (<2.0) 11/11/21 09:00 Ur Leukocyte Esterase Neg (Negative) 11/11/21 09:00 Urine WBC (Auto) < 1.0 /HPF (0.0-6.0) 11/11/21 09:00 Urine RBC (Auto) < 1.0 /HPF (0.0-6.0) 11/11/21 09:00 Coronavirus (PCR) Negative (Negative) 11/10/21 08:30 Blood Type O POSITIVE 12/14/21 10:30 Antibody Screen Negative 12/14/21 10:30 Crossmatch See Detail 12/14/21 10:30 Microbiology: Microbiology 12/16/21 14:53 Peripheral/Venous Blood Culture - Preliminary Culture in Progress 12/16/21 15:09 Peripheral/Venous Blood Culture - Preliminary Culture in Progress Gamble/IV: Voiding Method Indwelling Catheter Active Medications - Current Medications Current Medications: Generic Name Dose Route Start Last Admin Trade Name Freq PRN Reason Stop Dose Admin Acetaminophen 650 mg 12/14/21 04:12 12/16/21 13:34 Acetaminophen 325 Mg/10.15 Ml Oral Liqd Unit Dose FEEDTUBE 650 mg Q6H PRN Administration Non Cardiac Pain or Temp>100.5 Hydrocodone Bitart/Acetaminophen 1 each 11/21/21 10:00 12/17/21 08:21 Hydrocodone/Acetaminophen 10-325mg Tab FEEDTUBE 1 each TID YOSSI Administration Alprazolam 0.25 mg 12/14/21 09:00 12/15/21 21:31 Alprazolam 0.25 Mg Tab PO 0.25 mg Q8H PRN Administration Agitation Lipase/Protease/Amylase 1 each 11/08/21 11:09 Lipase 10,500/Protease 25,000/Amylase 43,750 (Units) Dr Lema FEEDTUBE PRN PRN For Clogged Feeding Tube Buspirone HCl 7.5 mg 11/17/21 22:00 12/17/21 09:40 Buspirone 5 Mg Tab PO 7.5 mg BID YOSSI Administration Dextrose 0 ml 11/10/21 10:52 11/21/21 16:27 Dextrose 10% *Hypoglycemia IV 50 ml PRN PRN Administration Hypoglycemia Docusate Sodium 100 mg 12/04/21 11:00 12/17/21 09:40 Docusate Sodium 100 Mg/10 Ml Oral Liqd PO 100 mg BID YOSSI Administration Furosemide 20 mg 12/09/21 10:00 12/17/21 09:41 Furosemide 20 Mg Tab PO 20 mg QDAY YOSSI Administration Gabapentin 100 mg 12/01/21 10:00 12/17/21 09:39 Gabapentin 100 Mg Cap PO 100 mg QDAY YOSSI Administration Hydromorphone HCl 0.5 mg 12/08/21 20:06 12/13/21 18:00 Hydromorphone 1 Mg/1 Ml Inj IV 0.5 mg Q3H PRN Administration Pain, Moderate (4-6) Hydrophilic Ointment 1 applic 11/06/21 04:02 Lip Therapy Vaseline TP Q2HR PRN Dry Lips Cefepime HCl 2 gm in 100 mls @ 200 mls/hr 12/16/21 14:00 12/17/21 03:51 Cefepime/Ns 2 Gm/100 Ml IV 200 mls/hr Q12H YOSSI Administration Protocol Vancomycin HCl 1 gm in 250 mls @ 166.667 mls/hr 12/16/21 14:00 12/16/21 15:12 Vancomycin/Ns 1 Gm/250 Ml IV 166.667 mls/hr Q24H YOSSI Administration Protocol Lansoprazole 30 mg 11/24/21 22:00 12/17/21 09:39 Lansoprazole 30 Mg Solutab FEEDTUBE 30 mg BID YOSSI Administration Levothyroxine Sodium 125 mcg 11/05/21 07:00 12/17/21 06:18 Levothyroxine 125 Mcg Tab PO 125 mcg DAILY@0600 YOSSI Administration Melatonin 5 mg 12/05/21 22:00 12/16/21 21:25 Melatonin 5 Mg Tab PO 5 mg QHS [facility] Administration Metoprolol Tartrate 6.25 mg 12/08/21 22:52 12/17/21 09:39 Metoprolol Tartrate 25 Mg Tab PO 6.25 mg BID [facility] Administration Midodrine 5 mg 12/16/21 20:00 12/17/21 08:21 Midodrine 5 Mg Tab PO 5 mg [facility] Administration Multi-Ingred Cream/Lotion/Oil/Oint 1 applic 11/06/21 04:02 Mineral Oil/Petrolatum, White Ophth Oint 3.5 Gm OU Q4HR PRN Dry Eye(s) Nitroglycerin 0.4 mg 11/30/21 11:36 Nitroglycerin 0.4 Mg Tab Subl SL .Q5MIN PRN Chest Pain Ondansetron HCl 4 mg 12/05/21 10:00 12/08/21 05:17 Ondansetron 4 Mg/2 Ml Inj IV 4 mg Q8H PRN Administration Nausea And Vomiting Polyethylene Glycol 17 gm 12/02/21 10:00 12/17/21 09:41 Polyethylene Glycol 3350 17 Gm Powder PO 17 gm QDAY [facility] Administration Potassium Chloride 40 meq 12/17/21 10:00 12/17/21 09:45 Potassium Chloride 20 Meq Packet FEEDTUBE 12/17/21 22:01 40 meq BID YOSSI Administration Pravastatin Sodium 20 mg 11/18/21 22:00 12/16/21 21:26 Pravastatin 20 Mg Tab PO 20 mg QHS [facility] Administration Quetiapine Fumarate 50 mg 12/01/21 22:00 12/16/21 21:25 Quetiapine 25 Mg Tab PO 50 mg QHS [facility] Administration Senna 17.6 mg 11/08/21 22:00 12/17/21 09:41 Sennosides Oral Liqd 8.8 Mg/5 Ml Oral Liqd PO 17.6 mg Q12HR [facility] Administration Simple Syrup 15 ml 11/08/21 11:09 Simple Syrup 15 Ml FEEDTUBE PRN PRN Hypoglycemia Simple Syrup 30 ml 11/08/21 11:09 Simple Syrup 15 Ml FEEDTUBE PRN PRN Hypoglycemia Sodium Bicarbonate 325 mg 11/08/21 11:09 Sodium Bicarbonate 325 Mg Tab FEEDTUBE PRN PRN For Clogged Feeding Tube Sodium Chloride 10 ml 11/04/21 10:00 12/17/21 09:43 Sodium Chloride 0.9% 10 Ml Flush Syringe IV 10 ml BID YOSSI Administration Sodium Chloride 10 ml 11/04/21 02:03 Sodium Chloride 0.9% 10 Ml Flush Syringe IV PRN PRN LINE FLUSH Sucralfate 1 gm 11/18/21 16:30 12/17/21 08:20 Sucralfate 1 Gm/10 Ml Oral Liqd PO 1 gm ACHS YOSSI Administration Trazodone HCl 50 mg 12/04/21 22:00 12/16/21 21:25 Trazodone 50 Mg Tab PO 50 mg QHS YOSSI Administration Nutrition/Malnutrition Assess - Dietary Evaluation Nutrition/Malnutrition Findings: Nutrition Notes Start: 11/04/21 17:16 Freq: Status: Active Protocol: Document 12/15/21 15:12 ISABELL (Rec: 12/15/21 15:41 ISABELL [id number]) Nutrition Notes Initial or Follow up Reassessment Current Diagnosis Diabetes,Sepsis,Hypertension, Heart Failure,Respiratory Failure Other Pertinent Diagnosis Bilateral Pneumonia, L-Pleural Effusion, Pulmonary HTN, HFrEF, GI Bleed. Current Diet TF-Vital AF 1.2 @ 40 ml/hr ( since 11/30) Labs/Tests 12/15: Na 134, Cl 95.7, BUN 28 , Glu 129, Ca 8.2. Pertinent Medications 12/15: Levothyroxine, others nutritionally unremarkable. Height 5 ft Weight 62.4 kg [place] Body Weight (kg) 45.45 BMI 26.9 Weight change and time frame No body weight change reported in 1 month. Weight Status Appropriate Subjective/Other Information RD consult for routine TF tolerance. TF continues as prescribed, well tolerated, no gastric residues, according to RN notes. Pt continues on Mechanical Ventilation. Pt is having difficulties for discharge, due to LTAC refusing transfer at the time. Percent of energy/protein needs met: Prescribed Vital AF 1.2 Tamir @ 40 ml/hr provides for energy/ protein needs (1,150 Kcal/72 g ) during LOS, 95% Kcal; 96% AA . Burn Absent Trauma Absent GI Symptoms Other Difficulty In Swallowing,Chewing Skin Integrity/Comment Lower Extremities Pressure Ulcer. Current % PO Other Minimum of two criteria No #1 Nutrition Diagnosis Inadequate oral intake Diagnosis Progress(for reassessment Continues documentation) Is patient on ventilator? Yes Is Patient Ambulatory and/or Out of Bed No REE-([facility]-confined to bed) 1207.824 Calculation Used for [facility] Additional Notes Protein: 1.2-2 g/Kg; 75-125 g/ day. Fluids: 1 ml/Kcal, or as per MD. Nutrition Intervention Nutrition Support: Continue Vital AF 1.2 Tamir @ 40 ml/hr. Flush: 65 ml water Q 4 hr, or as per MD. Kcal 1,150 Protein (gm) 72 Carbohydrates (gm) 106 Fat (gm) 52 Fluid (mL) 779 Fiber (gm) 5 % RDI: 95% Kcal; 96% AA. Goal #1 Provide at least 75% of energy /protein needs through Enteral Feeding during LOS. Goal #2 Maintain body weight within +/ -3% of admission body weight during LOS. Follow-Up By: 12/22/21 Additional Comments Continue monitoring TF tolerance and BM. <LEAH ALFONSO - Last Filed: 12/18/21 07:03> Assessment and Plan Assessment and plan: I saw and evaluated the patient. I agree with the findings and the plan of care as documented in the Nurse Practitioner's~note, with the following corrections and additions. Hospitalist Physical - Constitutional Vitals: Temp Pulse Resp BP Pulse Ox 98.5 F 77 23 124/59 98 12/18/21 04:00 12/18/21 06:00 12/18/21 06:00 12/18/21 06:00 12/18/21 06:00 HEART Score - HEART Score Troponin: Troponin T 0.045 ng/mL (0.00-0.029) H 11/29/21 20:15 Results - Labs CBC & Chem 7: 12/18/21 05:04 12/18/21 05:04 Labs: Laboratory Last Values WBC 13.8 K/mm3 (4.5-11.0) H 12/18/21 05:04 RBC 3.44 M/mm3 (3.65-5.03) L 12/18/21 05:04 Hgb 9.9 gm/dl (10.1-14.3) L 12/18/21 05:04 Hct 28.8 % (30.3-42.9) L 12/18/21 05:04 MCV 84 fl (79-97) 12/18/21 05:04 MCH 29 pg (28-32) 12/18/21 05:04 MCHC 34 % (30-34) 12/18/21 05:04 RDW 18.1 % (13.2-15.2) H 12/18/21 05:04 Plt Count 227 K/mm3 (140-440) 12/18/21 05:04 Add Manual Diff Complete 11/16/21 15:25 Total Counted 100 11/16/21 15:25 Seg Neutrophils % Passport Support Manager 11/06/21 15:50 Seg Neuts % (Manual) 87.0 % (40.0-70.0) H 11/16/21 15:25 Band Neutrophils % 0 % 11/16/21 15:25 Lymphocytes % (Manual) 8.0 % (13.4-35.0) L 11/16/21 15:25 Reactive Lymphs % (Man) 0 % 11/16/21 15:25 Monocytes % (Manual) 5.0 % (0.0-7.3) 11/16/21 15:25 Eosinophils % (Manual) 0 % (0.0-4.3) 11/16/21 15:25 Basophils % (Manual) 0 % (0.0-1.8) 11/16/21 15:25 Metamyelocytes % 0 % 11/16/21 15:25 Myelocytes % 0 % 11/16/21 15:25 Promyelocytes % 0 % 11/16/21 15:25 Blast Cells % 0 % 11/16/21 15:25 Nucleated RBC % Not Reportable 11/16/21 15:25 Seg Neutrophils # Man 15.0 K/mm3 (1.8-7.7) H 11/16/21 15:25 Band Neutrophils # 0.0 K/mm3 11/16/21 15:25 Lymphocytes # (Manual) 1.4 K/mm3 (1.2-5.4) 11/16/21 15:25 Abs React Lymphs (Man) 0.0 K/mm3 11/16/21 15:25 Monocytes # (Manual) 0.9 K/mm3 (0.0-0.8) H 11/16/21 15:25 Eosinophils # (Manual) 0.0 K/mm3 (0.0-0.4) 11/16/21 15:25 Basophils # (Manual) 0.0 K/mm3 (0.0-0.1) 11/16/21 15:25 Metamyelocytes # 0.0 K/mm3 11/16/21 15:25 Myelocytes # 0.0 K/mm3 11/16/21 15:25 Promyelocytes # 0.0 K/mm3 11/16/21 15:25 Blast Cells # 0.0 K/mm3 11/16/21 15:25 WBC Morphology Not Reportable 11/16/21 15:25 Hypersegmented Neuts Not Reportable 11/16/21 15:25 Hyposegmented Neuts Not Reportable 11/16/21 15:25 Hypogranular Neuts Not Reportable 11/16/21 15:25 Smudge Cells Not Reportable 11/16/21 15:25 Toxic Granulation Not Reportable 11/16/21 15:25 Toxic Vacuolation Not Reportable 11/16/21 15:25 Dohle Bodies Not Reportable 11/16/21 15:25 Pelger-Huet Anomaly Not Reportable 11/16/21 15:25 Irina Rods Not Reportable 11/16/21 15:25 Platelet Estimate Consistent w auto 11/16/21 15:25 Clumped Platelets Rare 11/16/21 15:25 Plt Clumps, EDTA Not Reportable 11/16/21 15:25 Large Platelets Not Reportable 11/16/21 15:25 Giant Platelets Not Reportable 11/16/21 15:25 Platelet Satelliting Not Reportable 11/16/21 15:25 Plt Morphology Comment Not Reportable 11/16/21 15:25 RBC Morphology Not Reportable 11/16/21 15:25 Dimorphic RBCs Not Reportable 11/16/21 15:25 Polychromasia Not Reportable 11/16/21 15:25 Hypochromasia 2+ 11/16/21 15:25 Poikilocytosis Not Reportable 11/16/21 15:25 Anisocytosis 2+ 11/16/21 15:25 Microcytosis Not Reportable 11/16/21 15:25 Macrocytosis Not Reportable 11/16/21 15:25 Spherocytes Not Reportable 11/16/21 15:25 Pappenheimer Bodies Not Reportable 11/16/21 15:25 Sickle Cells Not Reportable 11/16/21 15:25 Target Cells 2+ 11/16/21 15:25 Tear Drop Cells Not Reportable 11/16/21 15:25 Ovalocytes Not Reportable 11/16/21 15:25 Helmet Cells Not Reportable 11/16/21 15:25 Odonnell-Clyman Bodies Not Reportable 11/16/21 15:25 Carson Rings Not Reportable 11/16/21 15:25 Malcom Cells Not Reportable 11/16/21 15:25 Bite Cells Not Reportable 11/16/21 15:25 Crenated Cell Not Reportable 11/16/21 15:25 Elliptocytes Not Reportable 11/16/21 15:25 Acanthocytes (Spur) Not Reportable 11/16/21 15:25 Rouleaux Not Reportable 11/16/21 15:25 Hemoglobin C Crystals Not Reportable 11/16/21 15:25 Schistocytes Not Reportable 11/16/21 15:25 Malaria parasites Not Reportable 11/16/21 15:25 Godfrey Bodies Not Reportable 11/16/21 15:25 Hem Pathologist Commnt No 11/16/21 15:25 PT 16.9 Sec. (12.2-14.9) H 11/26/21 05:00 INR 1.24 (0.87-1.13) H 11/26/21 05:00 APTT 29.2 Sec. (24.2-36.6) 11/26/21 05:00 D-Dimer 2655.00 ng/mlDDU (0-234) H 11/11/21 04:28 ABG pH 7.479 pH Units (7.350-7.450) H 12/16/21 20:52 ABG pCO2 37.5 mm Hg 12/16/21 20:52 ABG pO2 79.3 mm Hg (80.0-90.0) L 12/16/21 20:52 ABG HCO3 27.3 mmol/L (20.0-26.0) H 12/16/21 20:52 ABG O2 Saturation 97.0 % (95.0-99.0) 12/16/21 20:52 ABG O2 Content 12.3 (0.0-44) 12/16/21 20:52 ABG Base Excess 3.6 mmol/L (-2.0-3.0) H 12/16/21 20:52 ABG Hemoglobin 9.1 gm/dl (12.0-16.0) L 12/16/21 20:52 ABG Carboxyhemoglobin 1.6 % (0.0-5.0) 12/16/21 20:52 ABG Methemoglobin 0.5 % (0.0-1.5) 12/16/21 20:52 Oxyhemoglobin 94.9 % (95.0-99.0) L 12/16/21 20:52 FiO2 30 % 12/16/21 20:52 Sodium 132 mmol/L (137-145) L 12/18/21 05:04 Potassium 4.9 mmol/L (3.6-5.0) D 12/18/21 05:04 Chloride 97.4 mmol/L (98-107) L 12/18/21 05:04 Carbon Dioxide 24 mmol/L (22-30) 12/18/21 05:04 Anion Gap 16 mmol/L 12/18/21 05:04 BUN 38 mg/dL (7-17) H 12/18/21 05:04 Creatinine 0.6 mg/dL (0.6-1.2) 12/18/21 05:04 Estimated GFR > 60 ml/min 12/18/21 05:04 BUN/Creatinine Ratio 63 % 12/18/21 05:04 Glucose 134 mg/dL (65-100) H 12/18/21 05:04 POC Glucose 118 mg/dL (70-105) H 12/18/21 05:28 Lactic Acid 3.70 mmol/L (0.7-2.0) H* 11/03/21 22:32 Calcium 8.8 mg/dL (8.4-10.2) D 12/18/21 05:04 Phosphorus 2.90 mg/dL (2.5-4.5) 12/18/21 05:04 Magnesium 2.10 mg/dL (1.7-2.3) 12/18/21 05:04 Ferritin 52.6 ng/mL (10.0-200.0) 11/05/21 06:11 Total Bilirubin 0.50 mg/dL (0.1-1.2) 11/17/21 05:56 Direct Bilirubin < 0.2 mg/dL (0-0.2) 11/11/21 04:28 Indirect Bilirubin 0.1 mg/dL 11/11/21 04:28 AST 36 units/L (5-40) 11/17/21 05:56 ALT 47 units/L (7-56) 11/17/21 05:56 Alkaline Phosphatase 107 units/L (35-129) 11/17/21 05:56 Ammonia 42.0 umol/L (25-60) 11/10/21 14:08 Lactate Dehydrogenase 187 units/L (91-180) H 11/05/21 06:11 Troponin T 0.045 ng/mL (0.00-0.029) H 11/29/21 20:15 C-Reactive Protein 22.20 mg/dL (0.00-1.30) H 11/05/21 06:11 NT-Pro-B Natriuret Pep 7895 pg/mL (0-900) H 11/03/21 22:32 Total Protein 5.1 g/dL (6.3-8.2) L 11/17/21 05:56 Albumin 2.2 g/dL (3.9-5) L 11/17/21 05:56 Albumin/Globulin Ratio 0.8 % 11/17/21 05:56 Triglycerides 59 mg/dL (2-149) 11/29/21 20:15 Cholesterol 74 mg/dL (50-199) 11/29/21 20:15 LDL Cholesterol Direct 25 mg/dL (50-130) L 11/29/21 20:15 HDL Cholesterol 41 mg/dL (40-59) 11/29/21 20:15 Cholesterol/HDL Ratio 1.80 % 11/29/21 20:15 Vitamin B12 1823 pg/mL (211-911) H 11/10/21 14:08 TSH 1.510 mlU/mL (0.270-4.200) 11/10/21 14:08 Urine Color Yellow (Yellow) 11/11/21 09:00 Urine Turbidity Slightly-cloudy (Clear) 11/11/21 09:00 Urine pH 5.0 (5.0-7.0) 11/11/21 09:00 Ur Specific [place] 1.009 (1.003-1.030) 11/11/21 09:00 Urine Protein <15 mg/dl mg/dL (Negative) 11/11/21 09:00 Urine Glucose (UA) Neg mg/dL (Negative) 11/11/21 09:00 Urine Ketones Neg mg/dL (Negative) 11/11/21 09:00 Urine Blood Mod (Negative) 11/11/21 09:00 Urine Nitrite Neg (Negative) 11/11/21 09:00 Urine Bilirubin Neg (Negative) 11/11/21 09:00 Urine Urobilinogen < 2.0 mg/dL (<2.0) 11/11/21 09:00 Ur Leukocyte Esterase Neg (Negative) 11/11/21 09:00 Urine WBC (Auto) < 1.0 /HPF (0.0-6.0) 11/11/21 09:00 Urine RBC (Auto) < 1.0 /HPF (0.0-6.0) 11/11/21 09:00 Coronavirus (PCR) Negative (Negative) 11/10/21 08:30 Blood Type O POSITIVE 12/14/21 10:30 Antibody Screen Negative 12/14/21 10:30 Crossmatch See Detail 12/14/21 10:30 Microbiology: Microbiology 11/03/21 22:32 Peripheral/Venous Blood Culture - Final Beta Hemolytic Strep Group B 12/16/21 Unknown Tracheal Aspirate Sputum Culture - Preliminary 12/16/21 15:09 Peripheral/Venous Blood Culture - Preliminary 12/16/21 14:53 Peripheral/Venous Blood Culture - Preliminary Gamble/IV: Voiding Method Indwelling Catheter Active Medications - Current Medications Current Medications: Generic Name Dose Route Start Last Admin Trade Name Freq PRN Reason Stop Dose Admin Acetaminophen 650 mg 12/14/21 04:12 12/16/21 13:34 Acetaminophen 325 Mg/10.15 Ml Oral Liqd Unit Dose FEEDTUBE 650 mg Q6H PRN Administration Non Cardiac Pain or Temp>100.5 Hydrocodone Bitart/Acetaminophen 1 each 11/21/21 10:00 12/17/21 21:21 Hydrocodone/Acetaminophen 10-325mg Tab FEEDTUBE 1 each TID YOSSI Administration Alprazolam 0.25 mg 12/14/21 09:00 12/18/21 05:29 Alprazolam 0.25 Mg Tab PO 0.25 mg Q8H PRN Administration Agitation Lipase/Protease/Amylase 1 each 11/08/21 11:09 Lipase 10,500/Protease 25,000/Amylase 43,750 (Units) Dr Lema FEEDTUBE PRN PRN For Clogged Feeding Tube Buspirone HCl 7.5 mg 11/17/21 22:00 12/17/21 21:21 Buspirone 5 Mg Tab PO 7.5 mg BID YOSSI Administration Dextrose 0 ml 11/10/21 10:52 11/21/21 16:27 Dextrose 10% *Hypoglycemia IV 50 ml PRN PRN Administration Hypoglycemia Docusate Sodium 100 mg 12/04/21 11:00 12/17/21 21:22 Docusate Sodium 100 Mg/10 Ml Oral Liqd PO Not Given BID YOSSI Furosemide 20 mg 12/09/21 10:00 12/17/21 09:41 Furosemide 20 Mg Tab PO 20 mg QDAY YOSSI Administration Gabapentin 100 mg 12/01/21 10:00 12/17/21 09:39 Gabapentin 100 Mg Cap PO 100 mg QDAY YOSSI Administration Hydromorphone HCl 0.5 mg 12/08/21 20:06 12/17/21 19:20 Hydromorphone 1 Mg/1 Ml Inj IV 0.5 mg Q3H PRN Administration Pain, Moderate (4-6) Hydrophilic Ointment 1 applic 11/06/21 04:02 Lip Therapy Vaseline TP Q2HR PRN Dry Lips Cefepime HCl 2 gm in 100 mls @ 200 mls/hr 12/16/21 14:00 12/18/21 02:42 Cefepime/Ns 2 Gm/100 Ml IV 200 mls/hr Q12H YOSSI Administration Protocol Vancomycin HCl 1 gm in 250 mls @ 166.667 mls/hr 12/16/21 14:00 12/17/21 14:15 Vancomycin/Ns 1 Gm/250 Ml IV 166.667 mls/hr Q24H YOSSI Administration Protocol Lansoprazole 30 mg 11/24/21 22:00 12/17/21 21:22 Lansoprazole 30 Mg Solutab FEEDTUBE 30 mg BID YOSSI Administration Levothyroxine Sodium 125 mcg 11/05/21 07:00 12/18/21 05:29 Levothyroxine 125 Mcg Tab PO 125 mcg DAILY@0600 [facility] Administration Melatonin 5 mg 12/05/21 22:00 12/17/21 21:22 Melatonin 5 Mg Tab PO 5 mg QHS [facility] Administration Metoprolol Tartrate 6.25 mg 12/08/21 22:52 12/17/21 21:21 Metoprolol Tartrate 25 Mg Tab PO 6.25 mg BID [facility] Administration Midodrine 5 mg 12/16/21 20:00 12/17/21 21:22 Midodrine 5 Mg Tab PO Not Given 799,1999 [facility] Multi-Ingred Cream/Lotion/Oil/Oint 1 applic 11/06/21 04:02 Mineral Oil/Petrolatum, White Ophth Oint 3.5 Gm OU Q4HR PRN Dry Eye(s) Nitroglycerin 0.4 mg 11/30/21 11:36 Nitroglycerin 0.4 Mg Tab Subl SL .Q5MIN PRN Chest Pain Ondansetron HCl 4 mg 12/05/21 10:00 12/08/21 05:17 Ondansetron 4 Mg/2 Ml Inj IV 4 mg Q8H PRN Administration Nausea And Vomiting Polyethylene Glycol 17 gm 12/02/21 10:00 12/17/21 09:41 Polyethylene Glycol 3350 17 Gm Powder PO 17 gm QDAY [facility] Administration Pravastatin Sodium 20 mg 11/18/21 22:00 12/17/21 21:21 Pravastatin 20 Mg Tab PO 20 mg QHS [facility] Administration Quetiapine Fumarate 50 mg 12/01/21 22:00 12/17/21 21:21 Quetiapine 25 Mg Tab PO 50 mg QHS [facility] Administration Senna 17.6 mg 11/08/21 22:00 12/17/21 21:22 Sennosides Oral Liqd 8.8 Mg/5 Ml Oral Liqd PO Not Given Q12HR [facility] Simple Syrup 15 ml 11/08/21 11:09 Simple Syrup 15 Ml FEEDTUBE PRN PRN Hypoglycemia Simple Syrup 30 ml 11/08/21 11:09 Simple Syrup 15 Ml FEEDTUBE PRN PRN Hypoglycemia Sodium Bicarbonate 325 mg 11/08/21 11:09 Sodium Bicarbonate 325 Mg Tab FEEDTUBE PRN PRN For Clogged Feeding Tube Sodium Chloride 10 ml 11/04/21 10:00 12/17/21 21:23 Sodium Chloride 0.9% 10 Ml Flush Syringe IV 10 ml BID YOSSI Administration Sodium Chloride 10 ml 11/04/21 02:03 Sodium Chloride 0.9% 10 Ml Flush Syringe IV PRN PRN LINE FLUSH Sucralfate 1 gm 11/18/21 16:30 12/17/21 21:21 Sucralfate 1 Gm/10 Ml Oral Liqd PO 1 gm ACHS YOSSI Administration Trazodone HCl 50 mg 12/04/21 22:00 12/17/21 21:21 Trazodone 50 Mg Tab PO 50 mg QHS YOSSI Administration Nutrition/Malnutrition Assess - Dietary Evaluation Nutrition/Malnutrition Findings: Nutrition Notes Start: 11/04/21 17:16 Freq: Status: Active Protocol: Document 12/15/21 15:12 ISABELL (Rec: 12/15/21 15:41 ISABELL [id number]) Nutrition Notes Initial or Follow up Reassessment Current Diagnosis Diabetes,Sepsis,Hypertension, Heart Failure,Respiratory Failure Other Pertinent Diagnosis Bilateral Pneumonia, L-Pleural Effusion, Pulmonary HTN, HFrEF, GI Bleed. Current Diet TF-Vital AF 1.2 @ 40 ml/hr ( since 11/30) Labs/Tests 12/15: Na 134, Cl 95.7, BUN 28 , Glu 129, Ca 8.2. Pertinent Medications 12/15: Levothyroxine, others nutritionally unremarkable. Height 5 ft Weight 62.4 kg [place] Body Weight (kg) 45.45 BMI 26.9 Weight change and time frame No body weight change reported in 1 month. Weight Status Appropriate Subjective/Other Information RD consult for routine TF tolerance. TF continues as prescribed, well tolerated, no gastric residues, according to RN notes. Pt continues on Mechanical Ventilation. Pt is having difficulties for discharge, due to LTAC refusing transfer at the time. Percent of energy/protein needs met: Prescribed Vital AF 1.2 Tamir @ 40 ml/hr provides for energy/ protein needs (1,150 Kcal/72 g ) during LOS, 95% Kcal; 96% AA . Burn Absent Trauma Absent GI Symptoms Other Difficulty In Swallowing,Chewing Skin Integrity/Comment Lower Extremities Pressure Ulcer. Current % PO Other Minimum of two criteria No #1 Nutrition Diagnosis Inadequate oral intake Diagnosis Progress(for reassessment Continues documentation) Is patient on ventilator? Yes Is Patient Ambulatory and/or Out of Bed No REE-([facility]-confined to bed) 1414.195 Calculation Used for [facility] Additional Notes Protein: 1.2-2 g/Kg; 75-125 g/ day. Fluids: 1 ml/Kcal, or as per MD. Nutrition Intervention Nutrition Support: Continue Vital AF 1.2 Tamir @ 40 ml/hr. Flush: 65 ml water Q 4 hr, or as per MD. Kcal 1,150 Protein (gm) 72 Carbohydrates (gm) 106 Fat (gm) 52 Fluid (mL) 779 Fiber (gm) 5 % RDI: 95% Kcal; 96% AA. Goal #1 Provide at least 75% of energy /protein needs through Enteral Feeding during LOS. Goal #2 Maintain body weight within +/ -3% of admission body weight during LOS. Follow-Up By: 12/22/21 Additional Comments Continue monitoring TF tolerance and BM.
[2021-12-17] MEDS: VANCOMYCIN/NS 1 GM/250 ML 1 GM/250 ML BAG IV SCH (14:15)
--- NOTE | 2021-12-17 14:25 | Progress Note ---
Assessment and Plan Cultures: SARS CoV2 PCR: negative 11/03/2021 blood culture: Group B streptococcus 11/04/2021 blood culture: no growth 11/11/2021 blood culture: No growth 12/16/2021 tracheal aspirate culture no growth so far 12/16/2021 blood culture no growth so far A/P: 81-year-old female with diabetes mellitus, hypertension, arthritis was admitted with shortness of breath. She was also having fever: #Acute fevers: nclear source. Possibly too high for DVT fevers. Would rule out other sources such as CLABSI and UTI given her lines and Rachel #Severe sepsis with shock, secondary to bilateral pneumonia: likely from Group B Strep. COVID-19 negative. Resolved #Group B Strep bacteremia: Likely secondary to above, no other source identified, other possibility is mild lower extremity cellulitis. Does have indwelling cardiac device, per patient it is a pacemaker. TTE showed no valvular or lead vegetations #Acute hypoxic respiratory failure: Secondary to above. Tracheostomy, on the vent. #Acute DVT: unable to anticoagulate Recs: -agree with cefepime and vancomycin for now. -Check blood and urine cultures. Will follow. Mahogany Montes MD [facility] ([facility] O: [phone] F: [phone] Subjective Date of service: 12/17/21 Principal diagnosis: Septic shock; AHRF; Anemia; Pneumonia; pleural effusion; HFrEF; Pulm HTN Interval history: Afebrile, white count improving now 12.3. Cultures pending. Objective - Exam Narrative Exam: Physical exam deferred to reduce risk of transmission of COVID-19. Please refer to primary team's note. - Constitutional Vitals: Vital Signs Temp Pulse Resp BP Pulse Ox 98.5 F 79 18 115/54 96 12/17/21 08:45 12/17/21 13:31 12/17/21 13:49 12/17/21 13:31 12/17/21 13:31 Temperature -Last 24 Hours Temperature 98.5 F Temperature 98.4 F Temperature 98.5 F Temperature 98.1 F Temperature 98.3 F Temperature 98.3 F Temperature 98.8 F Temperature 98.6 F Temperature 98.2 F Temperature 99.4 F Temperature 98.0 F - Labs CBC & Chem 7: 12/17/21 04:25 12/17/21 04:25 Labs: Abnormal lab results 12/14/21 12/16/21 12/16/21 Range/Units 10:30 18:28 20:52 WBC (4.5-11.0) K/mm3 RBC (3.65-5.03) M/mm3 Hgb (10.1-14.3) gm/dl Hct (30.3-42.9) % RDW (13.2-15.2) % ABG pH 7.479 H (7.350-7.450) pH Units ABG pO2 79.3 L (80.0-90.0) mm Hg ABG HCO3 27.3 H (20.0-26.0) mmol/L ABG Base Excess 3.6 H (-2.0-3.0) mmol/L ABG Hemoglobin 9.1 L (12.0-16.0) gm/dl Oxyhemoglobin 94.9 L (95.0-99.0) % Sodium (137-145) mmol/L Potassium (3.6-5.0) mmol/L Chloride (98-107) mmol/L BUN (7-17) mg/dL Glucose (65-100) mg/dL POC Glucose 132 H (70-105) mg/dL Calcium (8.4-10.2) mg/dL Crossmatch See Detail 12/16/21 12/17/21 12/17/21 Range/Units 23:30 04:25 04:25 WBC 12.3 H (4.5-11.0) K/mm3 RBC 2.16 L (3.65-5.03) M/mm3 Hgb 6.0 L (10.1-14.3) gm/dl Hct 18.1 L* D (30.3-42.9) % RDW 19.4 H (13.2-15.2) % ABG pH (7.350-7.450) pH Units ABG pO2 (80.0-90.0) mm Hg ABG HCO3 (20.0-26.0) mmol/L ABG Base Excess (-2.0-3.0) mmol/L ABG Hemoglobin (12.0-16.0) gm/dl Oxyhemoglobin (95.0-99.0) % Sodium 132 L (137-145) mmol/L Potassium 3.2 L (3.6-5.0) mmol/L Chloride 112.0 H (98-107) mmol/L BUN 32 H (7-17) mg/dL Glucose 122 H (65-100) mg/dL POC Glucose 137 H (70-105) mg/dL Calcium 6.8 L D (8.4-10.2) mg/dL Crossmatch 12/17/21 12/17/21 Range/Units 05:30 11:49 WBC (4.5-11.0) K/mm3 RBC (3.65-5.03) M/mm3 Hgb (10.1-14.3) gm/dl Hct (30.3-42.9) % RDW (13.2-15.2) % ABG pH (7.350-7.450) pH Units ABG pO2 (80.0-90.0) mm Hg ABG HCO3 (20.0-26.0) mmol/L ABG Base Excess (-2.0-3.0) mmol/L ABG Hemoglobin (12.0-16.0) gm/dl Oxyhemoglobin (95.0-99.0) % Sodium (137-145) mmol/L Potassium (3.6-5.0) mmol/L Chloride (98-107) mmol/L BUN (7-17) mg/dL Glucose (65-100) mg/dL POC Glucose 137 H 143 H (70-105) mg/dL Calcium (8.4-10.2) mg/dL Crossmatch
--- NOTE | 2021-12-17 14:34 | Progress Note ---
Assessment and Plan Gram positive Bacteremia Acute respiratory failure with hypoxia, now on MVS Acute microcytic anemia Bilateral pneumonia DVT Left pleural effusion Cardiomyopathy EF 30-35% Moderate pulmonary HTN RVSP 49e - get peripherals and discontinue PICC line - received 1 unit PRBC's - continue Cefepime and Vancomycin - continue daily SAT and SBT assessment as tolerated - LTAC evaluation ongoing - no new issues otherwise, continue care as below; - continue gentle diuresis - continue Midodrine - prn Levophed for target MAP > 65 mmHg - continue to wean supplemental oxygen for target O2 sat's > 90% acutely - VAP bundle addressed - continue lung protective strategies - continue bronchodilators with routine trach care and pulmonary hygiene per RT - wean per pulmonary driven protocols otherwise - avoid nephrotoxins, renally dose all medications - continue accuchecks with glycemic control per SSI (While critically ill target blood glucose of 140-180 mg/dL; avoid hypoglycemia) - sedation prn for target RASS 0 to -1 - antibiotics per ID recommendations - continue to avoid benzodiazepine's, reduce the possibility of delirium - prn analgesia per CPOT score - Maintenance of sleep-wake cycle, avoid delirium - continue enteral nutritional support at goal rate as tolerated - G.I. & VTE prophylaxis - PT/OT/ROM exercises - continue mobility protocols for pressure ulcer prophylaxis - Monitor hemodynamics closely - continue other care per attending / other consultants - discharge planning ongoing concurrently COVID SPECIFIC INTERVENTIONS - COVID-19 PCR negative .... Re-evaluate in am & prn CONDITION: CRITICAL PROGNOSIS: GUARDED CODE STATUS: FULL CODE The high probability of a clinically significant, sudden or life-threatening deterioration of the [respiratory, cardiovascular & neurologic] system(s) required my full and direct attention, intervention and personal management. The aggregate critical care time was [32] minutes without overlap. Time includes spent on; [x] Data Review and interpretation [x] Patient assessment and monitoring of vital signs [x] Documentation [x] Medication orders and management Subjective Date of service: 12/17/21 Principal diagnosis: Septic shock; AHRF; Anemia; Pneumonia; pleural effusion; HFrEF; Pulm HTN Interval history: Severe Sepsis POA vs septic shock- 11/03/2021 blood culture: Patient is seen today for: Septic shock; Acute hypoxemic respiratory failure; Anemia; Bilateral pneumonia; Left pleural effusion; HFrEF 30-35%; Pulm HTN RVSP 49 Seen and examined at bedside; 24hour events reviewed; nursing and respiratory care staff consulted; no adverse overnight events reported to me; resting in bed; remains a difficult wean; failed t-piece trial earlier but placed on PSV and tolerating p-supp of 16 cm H2O; denies N/V/F/C; Hb down to 6.0; also blood cultures growing GPCC Objective Vital Signs - 12hr 12/17/21 12/17/21 12/17/21 03:00 03:30 03:47 Temperature Pulse Rate 75 76 74 Pulse Rate [ 82 From Monitor] Respiratory 16 15 18 Rate Blood Pressure 111/40 112/45 O2 Sat by Pulse 98 99 97 Oximetry O2 Sat by Pulse Oximetry [ Assessment] 12/17/21 12/17/21 12/17/21 04:00 04:15 04:30 Temperature 98.8 F Pulse Rate 74 74 82 Pulse Rate [ From Monitor] Respiratory 20 6 L 23 Rate Blood Pressure 110/43 110/48 117/49 O2 Sat by Pulse 98 98 98 Oximetry O2 Sat by Pulse Oximetry [ Assessment] 12/17/21 12/17/21 12/17/21 05:00 05:15 05:30 Temperature Pulse Rate 76 74 76 Pulse Rate [ From Monitor] Respiratory 18 16 12 Rate Blood Pressure 111/40 110/39 113/36 O2 Sat by Pulse 97 97 98 Oximetry O2 Sat by Pulse Oximetry [ Assessment] 12/17/21 12/17/21 12/17/21 05:45 06:00 06:15 Temperature 98.3 F 98.3 F Pulse Rate 75 75 81 Pulse Rate [ From Monitor] Respiratory 24 21 17 Rate Blood Pressure 119/44 119/39 133/43 O2 Sat by Pulse 98 98 99 Oximetry O2 Sat by Pulse Oximetry [ Assessment] 12/17/21 12/17/21 12/17/21 06:16 06:30 06:45 Temperature 98.1 F Pulse Rate 81 79 Pulse Rate [ From Monitor] Respiratory 14 15 Rate Blood Pressure 158/79 133/43 128/47 O2 Sat by Pulse 97 97 98 Oximetry O2 Sat by Pulse Oximetry [ Assessment] 12/17/21 12/17/21 12/17/21 07:00 07:15 07:30 Temperature 98.5 F Pulse Rate 76 81 84 Pulse Rate [ From Monitor] Respiratory 16 22 12 Rate Blood Pressure 116/51 104/59 115/64 O2 Sat by Pulse 98 99 99 Oximetry O2 Sat by Pulse Oximetry [ Assessment] 12/17/21 12/17/21 12/17/21 07:45 07:58 08:00 Temperature 98.4 F Pulse Rate 84 85 83 Pulse Rate [ From Monitor] Respiratory 11 L 17 Rate Blood Pressure 124/73 139/64 139/64 O2 Sat by Pulse 100 98 98 Oximetry O2 Sat by Pulse 98 Oximetry [ Assessment] 12/17/21 12/17/21 12/17/21 08:15 08:21 08:30 Temperature Pulse Rate 85 81 Pulse Rate [ From Monitor] Respiratory 25 H 23 22 Rate Blood Pressure 145/65 135/61 O2 Sat by Pulse 98 98 Oximetry O2 Sat by Pulse Oximetry [ Assessment] 12/17/21 12/17/21 12/17/21 08:45 09:00 09:21 Temperature 98.5 F Pulse Rate 74 73 Pulse Rate [ From Monitor] Respiratory 16 15 17 Rate Blood Pressure 127/55 119/50 O2 Sat by Pulse 98 98 Oximetry O2 Sat by Pulse Oximetry [ Assessment] 12/17/21 12/17/21 12/17/21 09:30 09:39 10:00 Temperature Pulse Rate 80 78 77 Pulse Rate [ From Monitor] Respiratory 13 16 Rate Blood Pressure 113/51 113/51 112/52 O2 Sat by Pulse 97 97 Oximetry O2 Sat by Pulse Oximetry [ Assessment] 12/17/21 12/17/21 12/17/21 10:30 11:00 11:30 Temperature Pulse Rate 78 90 75 Pulse Rate [ From Monitor] Respiratory 20 26 H 16 Rate Blood Pressure 123/54 149/123 149/123 O2 Sat by Pulse 97 95 98 Oximetry O2 Sat by Pulse Oximetry [ Assessment] 12/17/21 12/17/21 12/17/21 12:00 12:30 13:00 Temperature Pulse Rate 72 73 81 Pulse Rate [ From Monitor] Respiratory 14 16 21 Rate Blood Pressure 149/123 115/54 115/54 O2 Sat by Pulse 98 99 98 Oximetry O2 Sat by Pulse Oximetry [ Assessment] 12/17/21 12/17/21 13:31 13:49 Temperature Pulse Rate 79 Pulse Rate [ From Monitor] Respiratory 17 18 Rate Blood Pressure 115/54 O2 Sat by Pulse 96 Oximetry O2 Sat by Pulse Oximetry [ Assessment] Constitutional: alert, appears uncomfortable (restless really), other (trach to MVS, frail elderly woman with mildly increased respiratory effort at rest) Eyes: non-icteric ENT: oropharynx moist, other (+ Midline tracheostomy with minimal secretions) Neck: supple, no lymphadenopathy, no JVD Effort: mildly labored Ascultation: Bilateral: diminished breath sounds, rhonchi Percussion: Bilateral: not dull Cardiovascular: regular rate and rhythm, other (S1,S2) Gastrointestinal: normoactive bowel sounds, soft, non-tender, non-distended (protuberant) Integumentary: normal Extremities: no cyanosis, pink and warm, pulses normal, edema (upper etremities) Neurologic: normal mental status, non-focal exam (grossly), pupils equal and round, motor strength normal and Psychiatric: mood appropriate CBC and BMP: 12/18/21 05:04 12/18/21 05:04 ABG, PT/INR, D-dimer: ABG ABG pH 7.479 pH Units (7.350-7.450) H 12/16/21 20:52 ABG pCO2 37.5 mm Hg 12/16/21 20:52 ABG pO2 79.3 mm Hg (80.0-90.0) L 12/16/21 20:52 ABG O2 Saturation 97.0 % (95.0-99.0) 12/16/21 20:52 PT/INR, D-dimer PT 16.9 Sec. (12.2-14.9) H 11/26/21 05:00 INR 1.24 (0.87-1.13) H 11/26/21 05:00 D-Dimer 2655.00 ng/mlDDU (0-234) H 11/11/21 04:28 Abnormal lab findings: Abnormal Labs 11/03/21 11/03/21 11/03/21 22:32 22:32 22:32 WBC 29.3 H RBC 2.93 L Hgb 6.1 L Hct 21.9 L MCV 75 L MCH 21 L MCHC 28 L RDW 19.7 H Plt Count Seg Neuts % (Manual) 97.0 H Lymphocytes % (Manual) 3.0 L Seg Neutrophils # Man 28.4 H Lymphocytes # (Manual) 0.9 L Monocytes # (Manual) PT 18.6 H INR 1.40 H D-Dimer ABG pH ABG pO2 ABG HCO3 ABG O2 Saturation ABG Base Excess ABG Hemoglobin Oxyhemoglobin Sodium Potassium Chloride Carbon Dioxide 20 L BUN 33 H Creatinine Glucose 119 H POC Glucose Lactic Acid Calcium 8.3 L Phosphorus Magnesium AST ALT Alkaline Phosphatase Lactate Dehydrogenase Troponin T 0.035 H C-Reactive Protein NT-Pro-B Natriuret Pep Total Protein Albumin LDL Cholesterol Direct 34 L Vitamin B12 Crossmatch 11/03/21 11/03/21 11/03/21 22:32 22:32 23:57 WBC RBC Hgb Hct MCV MCH MCHC RDW Plt Count Seg Neuts % (Manual) Lymphocytes % (Manual) Seg Neutrophils # Man Lymphocytes # (Manual) Monocytes # (Manual) PT INR D-Dimer ABG pH ABG pO2 ABG HCO3 ABG O2 Saturation ABG Base Excess ABG Hemoglobin Oxyhemoglobin Sodium Potassium Chloride Carbon Dioxide BUN Creatinine Glucose POC Glucose Lactic Acid 3.70 H* Calcium Phosphorus Magnesium AST ALT Alkaline Phosphatase 139 H Lactate Dehydrogenase Troponin T C-Reactive Protein NT-Pro-B Natriuret Pep 7895 H Total Protein Albumin 3.5 L LDL Cholesterol Direct Vitamin B12 Crossmatch See Detail 11/04/21 11/04/21 11/05/21 00:59 13:58 00:51 WBC 27.9 H RBC 3.28 L Hgb 7.3 L Hct 25.5 L MCV 78 L MCH 22 L MCHC 29 L RDW 19.1 H Plt Count Seg Neuts % (Manual) 96.0 H Lymphocytes % (Manual) 2.0 L Seg Neutrophils # Man 26.8 H Lymphocytes # (Manual) 0.6 L Monocytes # (Manual) PT INR D-Dimer ABG pH ABG pO2 ABG HCO3 ABG O2 Saturation ABG Base Excess ABG Hemoglobin Oxyhemoglobin Sodium Potassium Chloride Carbon Dioxide BUN Creatinine Glucose POC Glucose Lactic Acid Calcium Phosphorus Magnesium AST ALT Alkaline Phosphatase Lactate Dehydrogenase Troponin T 0.051 H D 0.032 H D C-Reactive Protein NT-Pro-B Natriuret Pep Total Protein Albumin LDL Cholesterol Direct Vitamin B12 Crossmatch 11/05/21 11/05/21 11/05/21 06:11 06:11 06:11 WBC 31.8 H RBC 3.57 L Hgb 8.0 L Hct 27.7 L MCV 78 L MCH 22 L MCHC 29 L RDW 19.2 H Plt Count Seg Neuts % (Manual) 91.0 H Lymphocytes % (Manual) 4.5 L Seg Neutrophils # Man 28.9 H Lymphocytes # (Manual) Monocytes # (Manual) 1.1 H PT INR D-Dimer 1494.53 H ABG pH ABG pO2 ABG HCO3 ABG O2 Saturation ABG Base Excess ABG Hemoglobin Oxyhemoglobin Sodium Potassium Chloride Carbon Dioxide 19 L BUN 42 H Creatinine Glucose 115 H POC Glucose Lactic Acid Calcium Phosphorus Magnesium AST 43 H ALT Alkaline Phosphatase Lactate Dehydrogenase 187 H Troponin T C-Reactive Protein 22.20 H NT-Pro-B Natriuret Pep Total Protein 6.0 L Albumin 3.2 L LDL Cholesterol Direct Vitamin B12 Crossmatch 11/05/21 11/05/21 11/06/21 06:11 12:15 00:30 WBC RBC Hgb Hct MCV MCH MCHC RDW Plt Count Seg Neuts % (Manual) Lymphocytes % (Manual) Seg Neutrophils # Man Lymphocytes # (Manual) Monocytes # (Manual) PT INR D-Dimer ABG pH ABG pO2 ABG HCO3 ABG O2 Saturation ABG Base Excess ABG Hemoglobin Oxyhemoglobin Sodium Potassium Chloride Carbon Dioxide BUN Creatinine Glucose POC Glucose 113 H 69 L Lactic Acid Calcium Phosphorus Magnesium AST ALT Alkaline Phosphatase Lactate Dehydrogenase Troponin T 0.033 H C-Reactive Protein NT-Pro-B Natriuret Pep Total Protein Albumin LDL Cholesterol Direct Vitamin B12 Crossmatch 11/06/21 11/06/21 11/06/21 05:50 15:50 15:50 WBC 25.5 H RBC 3.62 L Hgb 8.0 L Hct 27.5 L MCV 76 L MCH 22 L MCHC 29 L RDW 19.6 H Plt Count Seg Neuts % (Manual) 92.0 H Lymphocytes % (Manual) 5.0 L Seg Neutrophils # Man 23.5 H Lymphocytes # (Manual) Monocytes # (Manual) PT INR D-Dimer ABG pH 7.305 L ABG pO2 ABG HCO3 15.8 L ABG O2 Saturation ABG Base Excess -9.6 L ABG Hemoglobin 8.6 L Oxyhemoglobin 94.6 L Sodium Potassium Chloride 113.9 H Carbon Dioxide 17 L BUN 56 H Creatinine Glucose 114 H POC Glucose Lactic Acid Calcium 7.9 L Phosphorus Magnesium AST 1410 H ALT 934 H Alkaline Phosphatase 142 H Lactate Dehydrogenase Troponin T C-Reactive Protein NT-Pro-B Natriuret Pep Total Protein 5.0 L Albumin 2.6 L LDL Cholesterol Direct Vitamin B12 Crossmatch 11/07/21 11/07/21 11/07/21 03:30 04:50 08:07 WBC RBC Hgb Hct MCV MCH MCHC RDW Plt Count Seg Neuts % (Manual) Lymphocytes % (Manual) Seg Neutrophils # Man Lymphocytes # (Manual) Monocytes # (Manual) PT INR D-Dimer ABG pH ABG pO2 296.9 H ABG HCO3 18.1 L ABG O2 Saturation 99.5 H ABG Base Excess -5.9 L ABG Hemoglobin 7.6 L Oxyhemoglobin Sodium Potassium Chloride Carbon Dioxide BUN Creatinine Glucose POC Glucose 106 H 108 H Lactic Acid Calcium Phosphorus Magnesium AST ALT Alkaline Phosphatase Lactate Dehydrogenase Troponin T C-Reactive Protein NT-Pro-B Natriuret Pep Total Protein Albumin LDL Cholesterol Direct Vitamin B12 Crossmatch 11/08/21 11/08/21 11/08/21 03:10 18:05 23:43 WBC RBC Hgb Hct MCV MCH MCHC RDW Plt Count Seg Neuts % (Manual) Lymphocytes % (Manual) Seg Neutrophils # Man Lymphocytes # (Manual) Monocytes # (Manual) PT INR D-Dimer ABG pH ABG pO2 127.4 H ABG HCO3 ABG O2 Saturation ABG Base Excess -3.4 L ABG Hemoglobin 7.4 L Oxyhemoglobin Sodium Potassium Chloride Carbon Dioxide BUN Creatinine Glucose POC Glucose 113 H 141 H Lactic Acid Calcium Phosphorus Magnesium AST ALT Alkaline Phosphatase Lactate Dehydrogenase Troponin T C-Reactive Protein NT-Pro-B Natriuret Pep Total Protein Albumin LDL Cholesterol Direct Vitamin B12 Crossmatch 11/08/21 11/08/21 11/09/21 Unknown Unknown 02:00 WBC 14.5 H RBC 3.35 L Hgb 7.5 L 8.1 L Hct 25.4 L 27.6 L MCV 76 L 76 L MCH 23 L 22 L MCHC RDW 19.9 H 19.9 H Plt Count Seg Neuts % (Manual) Lymphocytes % (Manual) Seg Neutrophils # Man Lymphocytes # (Manual) Monocytes # (Manual) PT INR D-Dimer ABG pH ABG pO2 ABG HCO3 ABG O2 Saturation ABG Base Excess ABG Hemoglobin Oxyhemoglobin Sodium 154 H D Potassium 3.3 L Chloride 120.7 H Carbon Dioxide 20 L BUN 38 H Creatinine Glucose POC Glucose Lactic Acid Calcium 8.3 L Phosphorus Magnesium AST ALT Alkaline Phosphatase Lactate Dehydrogenase Troponin T C-Reactive Protein NT-Pro-B Natriuret Pep Total Protein Albumin LDL Cholesterol Direct Vitamin B12 Crossmatch 11/09/21 11/09/21 11/09/21 02:00 02:31 05:12 WBC RBC Hgb Hct MCV MCH MCHC RDW Plt Count Seg Neuts % (Manual) Lymphocytes % (Manual) Seg Neutrophils # Man Lymphocytes # (Manual) Monocytes # (Manual) PT INR D-Dimer ABG pH 7.479 H ABG pO2 121.3 H ABG HCO3 ABG O2 Saturation ABG Base Excess ABG Hemoglobin 7.3 L Oxyhemoglobin Sodium Potassium Chloride 112.5 H Carbon Dioxide BUN 33 H Creatinine Glucose 161 H POC Glucose 135 H Lactic Acid Calcium Phosphorus Magnesium AST 251 H ALT 481 H Alkaline Phosphatase Lactate Dehydrogenase Troponin T C-Reactive Protein NT-Pro-B Natriuret Pep Total Protein 5.0 L Albumin 2.8 L LDL Cholesterol Direct Vitamin B12 Crossmatch 11/09/21 11/09/21 11/09/21 11:33 16:32 23:28 WBC RBC Hgb Hct MCV MCH MCHC RDW Plt Count Seg Neuts % (Manual) Lymphocytes % (Manual) Seg Neutrophils # Man Lymphocytes # (Manual) Monocytes # (Manual) PT INR D-Dimer ABG pH ABG pO2 ABG HCO3 ABG O2 Saturation ABG Base Excess ABG Hemoglobin Oxyhemoglobin Sodium Potassium Chloride Carbon Dioxide BUN Creatinine Glucose POC Glucose 132 H 133 H 143 H Lactic Acid Calcium Phosphorus Magnesium AST ALT Alkaline Phosphatase Lactate Dehydrogenase Troponin T C-Reactive Protein NT-Pro-B Natriuret Pep Total Protein Albumin LDL Cholesterol Direct Vitamin B12 Crossmatch 11/10/21 11/10/21 11/10/21 04:00 04:00 05:35 WBC 16.0 H RBC 3.61 L Hgb 8.0 L Hct 27.1 L MCV 75 L MCH 22 L MCHC RDW 20.4 H Plt Count Seg Neuts % (Manual) Lymphocytes % (Manual) Seg Neutrophils # Man Lymphocytes # (Manual) Monocytes # (Manual) PT INR D-Dimer ABG pH ABG pO2 ABG HCO3 ABG O2 Saturation ABG Base Excess ABG Hemoglobin Oxyhemoglobin Sodium 149 H Potassium Chloride 114.1 H Carbon Dioxide BUN 31 H Creatinine Glucose 148 H POC Glucose 132 H Lactic Acid Calcium 8.2 L Phosphorus Magnesium AST ALT Alkaline Phosphatase Lactate Dehydrogenase Troponin T C-Reactive Protein NT-Pro-B Natriuret Pep Total Protein Albumin LDL Cholesterol Direct Vitamin B12 Crossmatch 11/10/21 11/10/21 11/10/21 11:31 14:08 15:35 WBC RBC Hgb Hct MCV MCH MCHC RDW Plt Count Seg Neuts % (Manual) Lymphocytes % (Manual) Seg Neutrophils # Man Lymphocytes # (Manual) Monocytes # (Manual) PT INR D-Dimer ABG pH ABG pO2 126.6 H ABG HCO3 ABG O2 Saturation ABG Base Excess ABG Hemoglobin 7.4 L Oxyhemoglobin Sodium Potassium Chloride Carbon Dioxide BUN Creatinine Glucose POC Glucose 147 H Lactic Acid Calcium Phosphorus Magnesium AST ALT Alkaline Phosphatase Lactate Dehydrogenase Troponin T C-Reactive Protein NT-Pro-B Natriuret Pep Total Protein Albumin LDL Cholesterol Direct Vitamin B12 1823 H Crossmatch 11/10/21 11/11/21 11/11/21 17:53 00:55 04:28 WBC RBC Hgb Hct MCV MCH MCHC RDW Plt Count Seg Neuts % (Manual) Lymphocytes % (Manual) Seg Neutrophils # Man Lymphocytes # (Manual) Monocytes # (Manual) PT INR D-Dimer ABG pH ABG pO2 ABG HCO3 ABG O2 Saturation ABG Base Excess ABG Hemoglobin Oxyhemoglobin Sodium 149 H Potassium Chloride 112.2 H Carbon Dioxide BUN 34 H Creatinine Glucose 148 H POC Glucose 140 H 145 H Lactic Acid Calcium 7.9 L Phosphorus Magnesium AST 53 H ALT 203 H Alkaline Phosphatase Lactate Dehydrogenase Troponin T C-Reactive Protein NT-Pro-B Natriuret Pep Total Protein 4.9 L Albumin 2.6 L LDL Cholesterol Direct Vitamin B12 Crossmatch 11/11/21 11/11/21 11/11/21 04:28 04:28 05:28 WBC 20.9 H RBC 3.47 L Hgb 7.5 L Hct 26.0 L MCV 75 L MCH 22 L MCHC 29 L RDW 21.6 H Plt Count 132 L Seg Neuts % (Manual) Lymphocytes % (Manual) Seg Neutrophils # Man Lymphocytes # (Manual) Monocytes # (Manual) PT INR D-Dimer 2655.00 H ABG pH ABG pO2 ABG HCO3 ABG O2 Saturation ABG Base Excess ABG Hemoglobin Oxyhemoglobin Sodium Potassium Chloride Carbon Dioxide BUN Creatinine Glucose POC Glucose 154 H Lactic Acid Calcium Phosphorus Magnesium AST ALT Alkaline Phosphatase Lactate Dehydrogenase Troponin T C-Reactive Protein NT-Pro-B Natriuret Pep Total Protein Albumin LDL Cholesterol Direct Vitamin B12 Crossmatch 11/11/21 11/11/21 11/12/21 12:38 18:13 00:14 WBC RBC Hgb Hct MCV MCH MCHC RDW Plt Count Seg Neuts % (Manual) Lymphocytes % (Manual) Seg Neutrophils # Man Lymphocytes # (Manual) Monocytes # (Manual) PT INR D-Dimer ABG pH ABG pO2 ABG HCO3 ABG O2 Saturation ABG Base Excess ABG Hemoglobin Oxyhemoglobin Sodium Potassium Chloride Carbon Dioxide BUN Creatinine Glucose POC Glucose 137 H 108 H 137 H Lactic Acid Calcium Phosphorus Magnesium AST ALT Alkaline Phosphatase Lactate Dehydrogenase Troponin T C-Reactive Protein NT-Pro-B Natriuret Pep Total Protein Albumin LDL Cholesterol Direct Vitamin B12 Crossmatch 11/12/21 11/12/21 11/12/21 05:40 06:24 11:12 WBC RBC Hgb Hct MCV MCH MCHC RDW Plt Count Seg Neuts % (Manual) Lymphocytes % (Manual) Seg Neutrophils # Man Lymphocytes # (Manual) Monocytes # (Manual) PT INR D-Dimer ABG pH 7.586 H ABG pO2 150.6 H ABG HCO3 27.2 H ABG O2 Saturation 99.1 H ABG Base Excess 5.2 H ABG Hemoglobin 7.5 L Oxyhemoglobin Sodium Potassium Chloride Carbon Dioxide BUN Creatinine Glucose POC Glucose 132 H 140 H Lactic Acid Calcium Phosphorus Magnesium AST ALT Alkaline Phosphatase Lactate Dehydrogenase Troponin T C-Reactive Protein NT-Pro-B Natriuret Pep Total Protein Albumin LDL Cholesterol Direct Vitamin B12 Crossmatch 11/12/21 11/12/21 11/12/21 14:50 14:50 17:13 WBC 19.8 H RBC 3.27 L Hgb 7.1 L Hct 24.5 L MCV 75 L MCH 22 L MCHC 29 L RDW 22.3 H Plt Count Seg Neuts % (Manual) Lymphocytes % (Manual) Seg Neutrophils # Man Lymphocytes # (Manual) Monocytes # (Manual) PT INR D-Dimer ABG pH ABG pO2 ABG HCO3 ABG O2 Saturation ABG Base Excess ABG Hemoglobin Oxyhemoglobin Sodium 150 H Potassium 3.3 L Chloride 112.0 H Carbon Dioxide BUN 40 H Creatinine Glucose 151 H POC Glucose 121 H Lactic Acid Calcium 7.4 L Phosphorus 1.70 L Magnesium 1.40 L AST ALT Alkaline Phosphatase Lactate Dehydrogenase Troponin T C-Reactive Protein NT-Pro-B Natriuret Pep Total Protein Albumin LDL Cholesterol Direct Vitamin B12 Crossmatch 11/12/21 11/13/21 11/13/21 23:19 05:34 06:30 WBC RBC Hgb Hct MCV MCH MCHC RDW Plt Count Seg Neuts % (Manual) Lymphocytes % (Manual) Seg Neutrophils # Man Lymphocytes # (Manual) Monocytes # (Manual) PT INR D-Dimer ABG pH ABG pO2 ABG HCO3 ABG O2 Saturation ABG Base Excess ABG Hemoglobin Oxyhemoglobin Sodium 149 H Potassium Chloride 60.0 L Carbon Dioxide BUN 40 H Creatinine Glucose 146 H POC Glucose 113 H 132 H Lactic Acid Calcium 7.3 L Phosphorus Magnesium 2.40 H AST ALT 72 H Alkaline Phosphatase Lactate Dehydrogenase Troponin T C-Reactive Protein NT-Pro-B Natriuret Pep Total Protein 5.2 L Albumin 2.2 L LDL Cholesterol Direct Vitamin B12 Crossmatch 11/13/21 11/13/21 11/13/21 06:30 08:30 11:19 WBC 21.2 H RBC 3.12 L Hgb 6.8 L Hct 23.2 L MCV 74 L MCH 22 L MCHC 29 L RDW 22.2 H Plt Count 135 L Seg Neuts % (Manual) Lymphocytes % (Manual) Seg Neutrophils # Man Lymphocytes # (Manual) Monocytes # (Manual) PT INR D-Dimer ABG pH ABG pO2 ABG HCO3 ABG O2 Saturation ABG Base Excess ABG Hemoglobin Oxyhemoglobin Sodium Potassium Chloride Carbon Dioxide BUN Creatinine Glucose POC Glucose 136 H Lactic Acid Calcium Phosphorus Magnesium AST ALT Alkaline Phosphatase Lactate Dehydrogenase Troponin T C-Reactive Protein NT-Pro-B Natriuret Pep Total Protein Albumin LDL Cholesterol Direct Vitamin B12 Crossmatch See Detail 11/13/21 11/14/21 11/14/21 18:21 00:01 04:46 WBC 20.0 H RBC 3.41 L Hgb 7.9 L Hct 26.8 L MCV MCH 23 L MCHC 29 L RDW 24.0 H Plt Count Seg Neuts % (Manual) Lymphocytes % (Manual) Seg Neutrophils # Man Lymphocytes # (Manual) Monocytes # (Manual) PT INR D-Dimer ABG pH ABG pO2 ABG HCO3 ABG O2 Saturation ABG Base Excess ABG Hemoglobin Oxyhemoglobin Sodium Potassium Chloride Carbon Dioxide BUN Creatinine Glucose POC Glucose 149 H 141 H Lactic Acid Calcium Phosphorus Magnesium AST ALT Alkaline Phosphatase Lactate Dehydrogenase Troponin T C-Reactive Protein NT-Pro-B Natriuret Pep Total Protein Albumin LDL Cholesterol Direct Vitamin B12 Crossmatch 11/14/21 11/14/21 11/14/21 04:46 05:10 11:10 WBC RBC Hgb Hct MCV MCH MCHC RDW Plt Count Seg Neuts % (Manual) Lymphocytes % (Manual) Seg Neutrophils # Man Lymphocytes # (Manual) Monocytes # (Manual) PT INR D-Dimer ABG pH ABG pO2 ABG HCO3 ABG O2 Saturation ABG Base Excess ABG Hemoglobin Oxyhemoglobin Sodium 148 H Potassium Chloride 113.1 H Carbon Dioxide BUN 43 H Creatinine Glucose 140 H POC Glucose 132 H 133 H Lactic Acid Calcium 7.5 L Phosphorus Magnesium AST ALT Alkaline Phosphatase Lactate Dehydrogenase Troponin T C-Reactive Protein NT-Pro-B Natriuret Pep Total Protein Albumin LDL Cholesterol Direct Vitamin B12 Crossmatch 11/14/21 11/14/21 11/14/21 16:14 17:48 23:23 WBC RBC Hgb Hct MCV MCH MCHC RDW Plt Count Seg Neuts % (Manual) Lymphocytes % (Manual) Seg Neutrophils # Man Lymphocytes # (Manual) Monocytes # (Manual) PT INR D-Dimer ABG pH ABG pO2 ABG HCO3 28.0 H ABG O2 Saturation ABG Base Excess 3.1 H ABG Hemoglobin 5.8 L Oxyhemoglobin 94.8 L Sodium Potassium Chloride Carbon Dioxide BUN Creatinine Glucose POC Glucose 130 H 136 H Lactic Acid Calcium Phosphorus Magnesium AST ALT Alkaline Phosphatase Lactate Dehydrogenase Troponin T C-Reactive Protein NT-Pro-B Natriuret Pep Total Protein Albumin LDL Cholesterol Direct Vitamin B12 Crossmatch 11/15/21 11/15/21 11/15/21 05:20 05:50 05:50 WBC 19.9 H RBC 3.50 L Hgb 8.2 L Hct 27.9 L MCV MCH 23 L MCHC 29 L RDW 24.9 H Plt Count Seg Neuts % (Manual) Lymphocytes % (Manual) Seg Neutrophils # Man Lymphocytes # (Manual) Monocytes # (Manual) PT INR D-Dimer ABG pH ABG pO2 ABG HCO3 ABG O2 Saturation ABG Base Excess ABG Hemoglobin Oxyhemoglobin Sodium 149 H Potassium Chloride 112.0 H Carbon Dioxide BUN 48 H Creatinine Glucose 152 H POC Glucose 137 H Lactic Acid Calcium 7.9 L Phosphorus Magnesium AST ALT Alkaline Phosphatase Lactate Dehydrogenase Troponin T C-Reactive Protein NT-Pro-B Natriuret Pep Total Protein Albumin LDL Cholesterol Direct Vitamin B12 Crossmatch 11/15/21 11/15/21 11/15/21 12:12 17:07 23:24 WBC RBC Hgb Hct MCV MCH MCHC RDW Plt Count Seg Neuts % (Manual) Lymphocytes % (Manual) Seg Neutrophils # Man Lymphocytes # (Manual) Monocytes # (Manual) PT INR D-Dimer ABG pH ABG pO2 ABG HCO3 ABG O2 Saturation ABG Base Excess ABG Hemoglobin Oxyhemoglobin Sodium Potassium Chloride Carbon Dioxide BUN Creatinine Glucose POC Glucose 114 H 135 H 123 H Lactic Acid Calcium Phosphorus Magnesium AST ALT Alkaline Phosphatase Lactate Dehydrogenase Troponin T C-Reactive Protein NT-Pro-B Natriuret Pep Total Protein Albumin LDL Cholesterol Direct Vitamin B12 Crossmatch 11/16/21 11/16/21 11/16/21 05:21 10:00 10:00 WBC 21.7 H RBC 2.57 L Hgb 6.0 L Hct 20.2 L D MCV MCH 24 L MCHC RDW 26.3 H Plt Count Seg Neuts % (Manual) Lymphocytes % (Manual) Seg Neutrophils # Man Lymphocytes # (Manual) Monocytes # (Manual) PT INR D-Dimer ABG pH ABG pO2 ABG HCO3 ABG O2 Saturation ABG Base Excess ABG Hemoglobin Oxyhemoglobin Sodium 153 H Potassium Chloride 114.9 H Carbon Dioxide BUN 74 H Creatinine Glucose 155 H POC Glucose 127 H Lactic Acid Calcium 8.1 L Phosphorus Magnesium AST ALT Alkaline Phosphatase Lactate Dehydrogenase Troponin T C-Reactive Protein NT-Pro-B Natriuret Pep Total Protein Albumin LDL Cholesterol Direct Vitamin B12 Crossmatch 11/16/21 11/16/21 11/16/21 11:34 14:00 15:25 WBC 17.2 H RBC 2.08 L Hgb 4.7 L* Hct 16.2 L* MCV 78 L MCH 23 L MCHC 29 L RDW 26.0 H Plt Count Seg Neuts % (Manual) 87.0 H Lymphocytes % (Manual) 8.0 L Seg Neutrophils # Man 15.0 H Lymphocytes # (Manual) Monocytes # (Manual) 0.9 H PT INR D-Dimer ABG pH ABG pO2 ABG HCO3 ABG O2 Saturation ABG Base Excess ABG Hemoglobin Oxyhemoglobin Sodium Potassium Chloride Carbon Dioxide BUN Creatinine Glucose POC Glucose 131 H Lactic Acid Calcium Phosphorus Magnesium AST ALT Alkaline Phosphatase Lactate Dehydrogenase Troponin T C-Reactive Protein NT-Pro-B Natriuret Pep Total Protein Albumin LDL Cholesterol Direct Vitamin B12 Crossmatch See Detail 11/16/21 11/16/21 11/16/21 15:25 17:21 22:43 WBC RBC Hgb 8.6 L D Hct 27.7 L D MCV MCH MCHC RDW Plt Count Seg Neuts % (Manual) Lymphocytes % (Manual) Seg Neutrophils # Man Lymphocytes # (Manual) Monocytes # (Manual) PT INR D-Dimer ABG pH ABG pO2 ABG HCO3 ABG O2 Saturation ABG Base Excess ABG Hemoglobin Oxyhemoglobin Sodium 148 H Potassium Chloride 113.2 H Carbon Dioxide BUN 84 H Creatinine Glucose 164 H POC Glucose 124 H Lactic Acid Calcium 7.6 L Phosphorus Magnesium AST ALT Alkaline Phosphatase Lactate Dehydrogenase Troponin T C-Reactive Protein NT-Pro-B Natriuret Pep Total Protein Albumin LDL Cholesterol Direct Vitamin B12 Crossmatch 11/16/21 11/17/21 11/17/21 23:07 05:33 05:56 WBC 25.1 H RBC 3.47 L Hgb 8.7 L Hct 28.5 L MCV MCH 25 L MCHC RDW 22.3 H Plt Count Seg Neuts % (Manual) Lymphocytes % (Manual) Seg Neutrophils # Man Lymphocytes # (Manual) Monocytes # (Manual) PT INR D-Dimer ABG pH ABG pO2 ABG HCO3 ABG O2 Saturation ABG Base Excess ABG Hemoglobin Oxyhemoglobin Sodium Potassium Chloride Carbon Dioxide BUN Creatinine Glucose POC Glucose 128 H 133 H Lactic Acid Calcium Phosphorus Magnesium AST ALT Alkaline Phosphatase Lactate Dehydrogenase Troponin T C-Reactive Protein NT-Pro-B Natriuret Pep Total Protein Albumin LDL Cholesterol Direct Vitamin B12 Crossmatch 11/17/21 11/17/21 11/17/21 05:56 11:00 11:55 WBC RBC Hgb 8.3 L Hct 26.9 L MCV MCH MCHC RDW Plt Count Seg Neuts % (Manual) Lymphocytes % (Manual) Seg Neutrophils # Man Lymphocytes # (Manual) Monocytes # (Manual) PT INR D-Dimer ABG pH ABG pO2 ABG HCO3 ABG O2 Saturation ABG Base Excess ABG Hemoglobin Oxyhemoglobin Sodium 151 H Potassium Chloride 113.6 H Carbon Dioxide BUN 85 H Creatinine Glucose 132 H POC Glucose 121 H Lactic Acid Calcium 7.8 L Phosphorus Magnesium AST ALT Alkaline Phosphatase Lactate Dehydrogenase Troponin T C-Reactive Protein NT-Pro-B Natriuret Pep Total Protein 5.1 L Albumin 2.2 L LDL Cholesterol Direct Vitamin B12 Crossmatch 11/17/21 11/17/21 11/18/21 18:04 18:55 00:26 WBC RBC Hgb 7.5 L 7.1 L Hct 24.8 L 23.6 L MCV MCH MCHC RDW Plt Count Seg Neuts % (Manual) Lymphocytes % (Manual) Seg Neutrophils # Man Lymphocytes # (Manual) Monocytes # (Manual) PT INR D-Dimer ABG pH ABG pO2 ABG HCO3 ABG O2 Saturation ABG Base Excess ABG Hemoglobin Oxyhemoglobin Sodium Potassium Chloride Carbon Dioxide BUN Creatinine Glucose POC Glucose 144 H Lactic Acid Calcium Phosphorus Magnesium AST ALT Alkaline Phosphatase Lactate Dehydrogenase Troponin T C-Reactive Protein NT-Pro-B Natriuret Pep Total Protein Albumin LDL Cholesterol Direct Vitamin B12 Crossmatch 11/18/21 11/18/21 11/18/21 00:43 05:10 05:10 WBC 12.5 H RBC 2.39 L Hgb 6.1 L Hct 20.2 L MCV MCH 25 L MCHC RDW 23.2 H Plt Count Seg Neuts % (Manual) Lymphocytes % (Manual) Seg Neutrophils # Man Lymphocytes # (Manual) Monocytes # (Manual) PT INR D-Dimer ABG pH ABG pO2 ABG HCO3 ABG O2 Saturation ABG Base Excess ABG Hemoglobin Oxyhemoglobin Sodium 131 L D Potassium 2.9 L* D Chloride 97.8 L Carbon Dioxide BUN 58 H Creatinine Glucose 665 H* POC Glucose 139 H Lactic Acid Calcium 7.0 L Phosphorus 2.20 L D Magnesium 1.50 L AST ALT Alkaline Phosphatase Lactate Dehydrogenase Troponin T C-Reactive Protein NT-Pro-B Natriuret Pep Total Protein Albumin LDL Cholesterol Direct Vitamin B12 Crossmatch 11/18/21 11/18/21 11/18/21 05:23 07:10 10:45 WBC RBC Hgb Hct MCV MCH MCHC RDW Plt Count Seg Neuts % (Manual) Lymphocytes % (Manual) Seg Neutrophils # Man Lymphocytes # (Manual) Monocytes # (Manual) PT INR D-Dimer ABG pH ABG pO2 ABG HCO3 ABG O2 Saturation ABG Base Excess ABG Hemoglobin Oxyhemoglobin Sodium 148 H D Potassium 3.1 L Chloride 111.9 H Carbon Dioxide BUN 63 H Creatinine Glucose 141 H POC Glucose 124 H Lactic Acid Calcium 8.1 L D Phosphorus Magnesium AST ALT Alkaline Phosphatase Lactate Dehydrogenase Troponin T C-Reactive Protein NT-Pro-B Natriuret Pep Total Protein Albumin LDL Cholesterol Direct Vitamin B12 Crossmatch See Detail 11/18/21 11/19/21 11/19/21 11:57 00:19 04:55 WBC RBC 3.35 L Hgb 9.0 L 8.9 L Hct 28.3 L D 28.1 L MCV MCH 27 L MCHC RDW 20.3 H Plt Count Seg Neuts % (Manual) Lymphocytes % (Manual) Seg Neutrophils # Man Lymphocytes # (Manual) Monocytes # (Manual) PT INR D-Dimer ABG pH ABG pO2 ABG HCO3 ABG O2 Saturation ABG Base Excess ABG Hemoglobin Oxyhemoglobin Sodium Potassium Chloride Carbon Dioxide BUN Creatinine Glucose POC Glucose 119 H Lactic Acid Calcium Phosphorus Magnesium AST ALT Alkaline Phosphatase Lactate Dehydrogenase Troponin T C-Reactive Protein NT-Pro-B Natriuret Pep Total Protein Albumin LDL Cholesterol Direct Vitamin B12 Crossmatch 11/19/21 11/19/21 11/20/21 04:55 05:42 00:55 WBC RBC Hgb 9.0 L Hct 28.6 L MCV MCH MCHC RDW Plt Count Seg Neuts % (Manual) Lymphocytes % (Manual) Seg Neutrophils # Man Lymphocytes # (Manual) Monocytes # (Manual) PT INR D-Dimer ABG pH ABG pO2 ABG HCO3 ABG O2 Saturation ABG Base Excess ABG Hemoglobin Oxyhemoglobin Sodium Potassium 3.5 L Chloride 108.6 H Carbon Dioxide BUN 47 H Creatinine Glucose 207 H POC Glucose 63 L Lactic Acid Calcium 7.1 L Phosphorus Magnesium AST ALT Alkaline Phosphatase Lactate Dehydrogenase Troponin T C-Reactive Protein NT-Pro-B Natriuret Pep Total Protein Albumin LDL Cholesterol Direct Vitamin B12 Crossmatch 11/20/21 11/20/21 11/20/21 05:40 05:40 Unknown WBC RBC 3.40 L Hgb 9.1 L Hct 28.8 L MCV MCH 27 L MCHC RDW 20.7 H Plt Count Seg Neuts % (Manual) Lymphocytes % (Manual) Seg Neutrophils # Man Lymphocytes # (Manual) Monocytes # (Manual) PT INR D-Dimer ABG pH ABG pO2 ABG HCO3 ABG O2 Saturation ABG Base Excess -2.7 L ABG Hemoglobin 9.5 L Oxyhemoglobin 94.3 L Sodium Potassium 3.5 L Chloride 108.9 H Carbon Dioxide BUN 37 H Creatinine Glucose 117 H POC Glucose Lactic Acid Calcium 7.5 L Phosphorus Magnesium AST ALT Alkaline Phosphatase Lactate Dehydrogenase Troponin T C-Reactive Protein NT-Pro-B Natriuret Pep Total Protein Albumin LDL Cholesterol Direct Vitamin B12 Crossmatch 11/21/21 11/21/21 11/21/21 04:30 04:30 16:00 WBC RBC 3.25 L Hgb 8.6 L Hct 28.1 L MCV MCH 26 L MCHC RDW 20.7 H Plt Count Seg Neuts % (Manual) Lymphocytes % (Manual) Seg Neutrophils # Man Lymphocytes # (Manual) Monocytes # (Manual) PT INR D-Dimer ABG pH ABG pO2 114.2 H ABG HCO3 ABG O2 Saturation ABG Base Excess ABG Hemoglobin 9.1 L Oxyhemoglobin Sodium 134 L Potassium Chloride Carbon Dioxide 20 L BUN 34 H Creatinine Glucose POC Glucose Lactic Acid Calcium 7.1 L Phosphorus Magnesium AST ALT Alkaline Phosphatase Lactate Dehydrogenase Troponin T C-Reactive Protein NT-Pro-B Natriuret Pep Total Protein Albumin LDL Cholesterol Direct Vitamin B12 Crossmatch 11/22/21 11/22/21 11/22/21 07:07 07:07 23:54 WBC RBC 3.30 L Hgb 9.0 L Hct 28.5 L MCV MCH 27 L MCHC RDW 21.0 H Plt Count Seg Neuts % (Manual) Lymphocytes % (Manual) Seg Neutrophils # Man Lymphocytes # (Manual) Monocytes # (Manual) PT INR D-Dimer ABG pH ABG pO2 ABG HCO3 ABG O2 Saturation ABG Base Excess ABG Hemoglobin Oxyhemoglobin Sodium Potassium Chloride Carbon Dioxide BUN 32 H Creatinine Glucose 106 H POC Glucose 110 H Lactic Acid Calcium 7.5 L Phosphorus Magnesium AST ALT Alkaline Phosphatase Lactate Dehydrogenase Troponin T C-Reactive Protein NT-Pro-B Natriuret Pep Total Protein Albumin LDL Cholesterol Direct Vitamin B12 Crossmatch 11/23/21 11/23/21 11/23/21 04:38 04:38 06:01 WBC RBC 3.23 L Hgb 8.8 L Hct 28.0 L MCV MCH 27 L MCHC RDW 21.3 H Plt Count Seg Neuts % (Manual) Lymphocytes % (Manual) Seg Neutrophils # Man Lymphocytes # (Manual) Monocytes # (Manual) PT INR D-Dimer ABG pH ABG pO2 ABG HCO3 ABG O2 Saturation ABG Base Excess ABG Hemoglobin Oxyhemoglobin Sodium 136 L Potassium Chloride Carbon Dioxide 20 L BUN 32 H Creatinine Glucose 109 H POC Glucose 115 H Lactic Acid Calcium 7.7 L Phosphorus Magnesium AST ALT Alkaline Phosphatase Lactate Dehydrogenase Troponin T C-Reactive Protein NT-Pro-B Natriuret Pep Total Protein Albumin LDL Cholesterol Direct Vitamin B12 Crossmatch 11/23/21 11/24/21 11/24/21 11:40 00:03 04:13 WBC RBC 3.18 L Hgb 8.5 L Hct 27.5 L MCV MCH 27 L MCHC RDW 21.6 H Plt Count Seg Neuts % (Manual) Lymphocytes % (Manual) Seg Neutrophils # Man Lymphocytes # (Manual) Monocytes # (Manual) PT INR D-Dimer ABG pH ABG pO2 ABG HCO3 ABG O2 Saturation ABG Base Excess ABG Hemoglobin Oxyhemoglobin Sodium Potassium Chloride Carbon Dioxide BUN Creatinine Glucose POC Glucose 117 H 111 H Lactic Acid Calcium Phosphorus Magnesium AST ALT Alkaline Phosphatase Lactate Dehydrogenase Troponin T C-Reactive Protein NT-Pro-B Natriuret Pep Total Protein Albumin LDL Cholesterol Direct Vitamin B12 Crossmatch 11/24/21 11/24/21 11/24/21 04:13 05:30 11:10 WBC RBC Hgb Hct MCV MCH MCHC RDW Plt Count Seg Neuts % (Manual) Lymphocytes % (Manual) Seg Neutrophils # Man Lymphocytes # (Manual) Monocytes # (Manual) PT INR D-Dimer ABG pH ABG pO2 ABG HCO3 ABG O2 Saturation ABG Base Excess ABG Hemoglobin Oxyhemoglobin Sodium Potassium Chloride Carbon Dioxide BUN 31 H Creatinine Glucose 101 H POC Glucose 115 H 107 H Lactic Acid Calcium 7.7 L Phosphorus Magnesium AST ALT Alkaline Phosphatase Lactate Dehydrogenase Troponin T C-Reactive Protein NT-Pro-B Natriuret Pep Total Protein Albumin LDL Cholesterol Direct Vitamin B12 Crossmatch 11/24/21 11/24/21 11/25/21 16:34 17:57 05:12 WBC RBC 3.11 L Hgb 8.2 L Hct 26.6 L MCV MCH 26 L MCHC RDW 21.3 H Plt Count Seg Neuts % (Manual) Lymphocytes % (Manual) Seg Neutrophils # Man Lymphocytes # (Manual) Monocytes # (Manual) PT INR D-Dimer ABG pH ABG pO2 ABG HCO3 ABG O2 Saturation ABG Base Excess ABG Hemoglobin Oxyhemoglobin Sodium Potassium Chloride Carbon Dioxide BUN Creatinine Glucose POC Glucose 115 H 110 H Lactic Acid Calcium Phosphorus Magnesium AST ALT Alkaline Phosphatase Lactate Dehydrogenase Troponin T C-Reactive Protein NT-Pro-B Natriuret Pep Total Protein Albumin LDL Cholesterol Direct Vitamin B12 Crossmatch 11/25/21 11/25/21 11/26/21 05:12 11:20 05:00 WBC RBC 3.30 L Hgb 8.8 L Hct 28.2 L MCV MCH 27 L MCHC RDW 20.7 H Plt Count Seg Neuts % (Manual) Lymphocytes % (Manual) Seg Neutrophils # Man Lymphocytes # (Manual) Monocytes # (Manual) PT INR D-Dimer ABG pH ABG pO2 ABG HCO3 ABG O2 Saturation ABG Base Excess ABG Hemoglobin Oxyhemoglobin Sodium Potassium Chloride Carbon Dioxide BUN 32 H Creatinine Glucose 118 H POC Glucose 118 H Lactic Acid Calcium 8.2 L Phosphorus Magnesium AST ALT Alkaline Phosphatase Lactate Dehydrogenase Troponin T C-Reactive Protein NT-Pro-B Natriuret Pep Total Protein Albumin LDL Cholesterol Direct Vitamin B12 Crossmatch 11/26/21 11/26/21 11/26/21 05:00 05:00 05:44 WBC RBC Hgb Hct MCV MCH MCHC RDW Plt Count Seg Neuts % (Manual) Lymphocytes % (Manual) Seg Neutrophils # Man Lymphocytes # (Manual) Monocytes # (Manual) PT 16.9 H INR 1.24 H D-Dimer ABG pH ABG pO2 ABG HCO3 ABG O2 Saturation ABG Base Excess ABG Hemoglobin Oxyhemoglobin Sodium Potassium Chloride Carbon Dioxide BUN 31 H Creatinine Glucose 104 H POC Glucose 110 H Lactic Acid Calcium 7.9 L Phosphorus Magnesium AST ALT Alkaline Phosphatase Lactate Dehydrogenase Troponin T C-Reactive Protein NT-Pro-B Natriuret Pep Total Protein Albumin LDL Cholesterol Direct Vitamin B12 Crossmatch 11/26/21 11/27/21 11/27/21 23:55 07:40 07:40 WBC RBC 3.18 L Hgb 8.5 L Hct 27.0 L MCV MCH 27 L MCHC RDW 21.2 H Plt Count Seg Neuts % (Manual) Lymphocytes % (Manual) Seg Neutrophils # Man Lymphocytes # (Manual) Monocytes # (Manual) PT INR D-Dimer ABG pH ABG pO2 ABG HCO3 ABG O2 Saturation ABG Base Excess ABG Hemoglobin Oxyhemoglobin Sodium Potassium Chloride Carbon Dioxide BUN 27 H Creatinine Glucose 112 H POC Glucose 63 L Lactic Acid Calcium 7.6 L Phosphorus Magnesium AST ALT Alkaline Phosphatase Lactate Dehydrogenase Troponin T C-Reactive Protein NT-Pro-B Natriuret Pep Total Protein Albumin LDL Cholesterol Direct Vitamin B12 Crossmatch 11/27/21 11/27/21 11/27/21 12:04 13:40 13:40 WBC RBC 3.31 L Hgb 8.7 L Hct 28.0 L MCV MCH 26 L MCHC RDW 20.7 H Plt Count Seg Neuts % (Manual) Lymphocytes % (Manual) Seg Neutrophils # Man Lymphocytes # (Manual) Monocytes # (Manual) PT INR D-Dimer ABG pH ABG pO2 ABG HCO3 ABG O2 Saturation ABG Base Excess ABG Hemoglobin Oxyhemoglobin Sodium 136 L Potassium Chloride Carbon Dioxide BUN 25 H Creatinine Glucose 127 H POC Glucose 109 H Lactic Acid Calcium 7.6 L Phosphorus Magnesium 1.40 L AST ALT Alkaline Phosphatase Lactate Dehydrogenase Troponin T C-Reactive Protein NT-Pro-B Natriuret Pep Total Protein Albumin LDL Cholesterol Direct Vitamin B12 Crossmatch 11/27/21 11/27/21 11/28/21 17:44 23:33 12:20 WBC RBC Hgb Hct MCV MCH MCHC RDW Plt Count Seg Neuts % (Manual) Lymphocytes % (Manual) Seg Neutrophils # Man Lymphocytes # (Manual) Monocytes # (Manual) PT INR D-Dimer ABG pH ABG pO2 ABG HCO3 ABG O2 Saturation ABG Base Excess ABG Hemoglobin Oxyhemoglobin Sodium Potassium Chloride Carbon Dioxide BUN Creatinine Glucose POC Glucose 107 H 108 H 114 H Lactic Acid Calcium Phosphorus Magnesium AST ALT Alkaline Phosphatase Lactate Dehydrogenase Troponin T C-Reactive Protein NT-Pro-B Natriuret Pep Total Protein Albumin LDL Cholesterol Direct Vitamin B12 Crossmatch 11/29/21 11/29/21 11/29/21 00:09 03:20 03:20 WBC RBC 3.05 L Hgb 8.2 L Hct 25.8 L MCV MCH 27 L MCHC RDW 20.9 H Plt Count Seg Neuts % (Manual) Lymphocytes % (Manual) Seg Neutrophils # Man Lymphocytes # (Manual) Monocytes # (Manual) PT INR D-Dimer ABG pH ABG pO2 ABG HCO3 ABG O2 Saturation ABG Base Excess ABG Hemoglobin Oxyhemoglobin Sodium 133 L Potassium Chloride Carbon Dioxide BUN 24 H Creatinine Glucose 137 H POC Glucose 134 H Lactic Acid Calcium 7.4 L Phosphorus Magnesium AST ALT Alkaline Phosphatase Lactate Dehydrogenase Troponin T C-Reactive Protein NT-Pro-B Natriuret Pep Total Protein Albumin LDL Cholesterol Direct Vitamin B12 Crossmatch 11/29/21 11/29/21 11/29/21 05:38 11:39 17:11 WBC RBC Hgb Hct MCV MCH MCHC RDW Plt Count Seg Neuts % (Manual) Lymphocytes % (Manual) Seg Neutrophils # Man Lymphocytes # (Manual) Monocytes # (Manual) PT INR D-Dimer ABG pH ABG pO2 ABG HCO3 ABG O2 Saturation ABG Base Excess ABG Hemoglobin Oxyhemoglobin Sodium Potassium Chloride Carbon Dioxide BUN Creatinine Glucose POC Glucose 117 H 143 H 124 H Lactic Acid Calcium Phosphorus Magnesium AST ALT Alkaline Phosphatase Lactate Dehydrogenase Troponin T C-Reactive Protein NT-Pro-B Natriuret Pep Total Protein Albumin LDL Cholesterol Direct Vitamin B12 Crossmatch 11/29/21 11/30/21 11/30/21 20:15 05:40 05:40 WBC 12.6 H RBC 3.41 L Hgb 9.1 L Hct 28.9 L MCV MCH 27 L MCHC RDW 20.4 H Plt Count Seg Neuts % (Manual) Lymphocytes % (Manual) Seg Neutrophils # Man Lymphocytes # (Manual) Monocytes # (Manual) PT INR D-Dimer ABG pH ABG pO2 ABG HCO3 ABG O2 Saturation ABG Base Excess ABG Hemoglobin Oxyhemoglobin Sodium Potassium Chloride Carbon Dioxide BUN 24 H Creatinine Glucose 131 H POC Glucose Lactic Acid Calcium 7.6 L Phosphorus Magnesium AST ALT Alkaline Phosphatase Lactate Dehydrogenase Troponin T 0.045 H C-Reactive Protein NT-Pro-B Natriuret Pep Total Protein Albumin LDL Cholesterol Direct 25 L Vitamin B12 Crossmatch 11/30/21 11/30/21 12/01/21 11:29 16:51 05:00 WBC RBC 2.97 L Hgb 8.0 L Hct 25.0 L MCV MCH 27 L MCHC RDW 20.8 H Plt Count Seg Neuts % (Manual) Lymphocytes % (Manual) Seg Neutrophils # Man Lymphocytes # (Manual) Monocytes # (Manual) PT INR D-Dimer ABG pH ABG pO2 ABG HCO3 ABG O2 Saturation ABG Base Excess ABG Hemoglobin Oxyhemoglobin Sodium Potassium Chloride Carbon Dioxide BUN Creatinine Glucose POC Glucose 123 H 114 H Lactic Acid Calcium Phosphorus Magnesium AST ALT Alkaline Phosphatase Lactate Dehydrogenase Troponin T C-Reactive Protein NT-Pro-B Natriuret Pep Total Protein Albumin LDL Cholesterol Direct Vitamin B12 Crossmatch 12/01/21 12/01/21 12/01/21 05:00 05:25 11:54 WBC RBC Hgb Hct MCV MCH MCHC RDW Plt Count Seg Neuts % (Manual) Lymphocytes % (Manual) Seg Neutrophils # Man Lymphocytes # (Manual) Monocytes # (Manual) PT INR D-Dimer ABG pH ABG pO2 ABG HCO3 ABG O2 Saturation ABG Base Excess ABG Hemoglobin Oxyhemoglobin Sodium 136 L Potassium Chloride Carbon Dioxide BUN 24 H Creatinine Glucose 117 H POC Glucose 108 H 107 H Lactic Acid Calcium 7.5 L Phosphorus Magnesium 1.60 L AST ALT Alkaline Phosphatase Lactate Dehydrogenase Troponin T C-Reactive Protein NT-Pro-B Natriuret Pep Total Protein Albumin LDL Cholesterol Direct Vitamin B12 Crossmatch 12/01/21 12/02/21 12/02/21 17:40 00:07 04:20 WBC RBC 2.92 L Hgb 7.7 L Hct 24.3 L MCV MCH 26 L MCHC RDW 20.5 H Plt Count Seg Neuts % (Manual) Lymphocytes % (Manual) Seg Neutrophils # Man Lymphocytes # (Manual) Monocytes # (Manual) PT INR D-Dimer ABG pH ABG pO2 ABG HCO3 ABG O2 Saturation ABG Base Excess ABG Hemoglobin Oxyhemoglobin Sodium Potassium Chloride Carbon Dioxide BUN Creatinine Glucose POC Glucose 123 H 110 H Lactic Acid Calcium Phosphorus Magnesium AST ALT Alkaline Phosphatase Lactate Dehydrogenase Troponin T C-Reactive Protein NT-Pro-B Natriuret Pep Total Protein Albumin LDL Cholesterol Direct Vitamin B12 Crossmatch 12/02/21 12/02/21 12/02/21 04:20 11:17 18:20 WBC RBC Hgb Hct MCV MCH MCHC RDW Plt Count Seg Neuts % (Manual) Lymphocytes % (Manual) Seg Neutrophils # Man Lymphocytes # (Manual) Monocytes # (Manual) PT INR D-Dimer ABG pH ABG pO2 ABG HCO3 ABG O2 Saturation ABG Base Excess ABG Hemoglobin Oxyhemoglobin Sodium 135 L Potassium Chloride Carbon Dioxide BUN 26 H Creatinine Glucose 121 H POC Glucose 117 H 113 H Lactic Acid Calcium 7.4 L Phosphorus Magnesium AST ALT Alkaline Phosphatase Lactate Dehydrogenase Troponin T C-Reactive Protein NT-Pro-B Natriuret Pep Total Protein Albumin LDL Cholesterol Direct Vitamin B12 Crossmatch 12/03/21 12/03/21 12/03/21 00:12 04:00 04:00 WBC RBC 2.99 L Hgb 7.8 L Hct 24.6 L MCV MCH 26 L MCHC RDW 20.2 H Plt Count Seg Neuts % (Manual) Lymphocytes % (Manual) Seg Neutrophils # Man Lymphocytes # (Manual) Monocytes # (Manual) PT INR D-Dimer ABG pH ABG pO2 ABG HCO3 ABG O2 Saturation ABG Base Excess ABG Hemoglobin Oxyhemoglobin Sodium 136 L Potassium Chloride Carbon Dioxide BUN 27 H Creatinine Glucose 133 H POC Glucose 121 H Lactic Acid Calcium 7.5 L Phosphorus Magnesium AST ALT Alkaline Phosphatase Lactate Dehydrogenase Troponin T C-Reactive Protein NT-Pro-B Natriuret Pep Total Protein Albumin LDL Cholesterol Direct Vitamin B12 Crossmatch 12/03/21 12/03/21 12/03/21 06:30 11:13 16:00 WBC RBC Hgb Hct MCV MCH MCHC RDW Plt Count Seg Neuts % (Manual) Lymphocytes % (Manual) Seg Neutrophils # Man Lymphocytes # (Manual) Monocytes # (Manual) PT INR D-Dimer ABG pH ABG pO2 ABG HCO3 ABG O2 Saturation ABG Base Excess ABG Hemoglobin Oxyhemoglobin Sodium Potassium Chloride Carbon Dioxide BUN Creatinine Glucose POC Glucose 129 H 125 H 125 H Lactic Acid Calcium Phosphorus Magnesium AST ALT Alkaline Phosphatase Lactate Dehydrogenase Troponin T C-Reactive Protein NT-Pro-B Natriuret Pep Total Protein Albumin LDL Cholesterol Direct Vitamin B12 Crossmatch 12/03/21 12/04/21 12/04/21 23:32 04:00 05:36 WBC RBC Hgb Hct MCV MCH MCHC RDW Plt Count Seg Neuts % (Manual) Lymphocytes % (Manual) Seg Neutrophils # Man Lymphocytes # (Manual) Monocytes # (Manual) PT INR D-Dimer ABG pH ABG pO2 ABG HCO3 ABG O2 Saturation ABG Base Excess ABG Hemoglobin Oxyhemoglobin Sodium Potassium 3.5 L Chloride Carbon Dioxide BUN 26 H Creatinine 0.5 L Glucose 151 H POC Glucose 133 H 142 H Lactic Acid Calcium 8.3 L Phosphorus Magnesium AST ALT Alkaline Phosphatase Lactate Dehydrogenase Troponin T C-Reactive Protein NT-Pro-B Natriuret Pep Total Protein Albumin LDL Cholesterol Direct Vitamin B12 Crossmatch 12/04/21 12/04/21 12/05/21 11:24 15:58 04:36 WBC RBC Hgb Hct MCV MCH MCHC RDW Plt Count Seg Neuts % (Manual) Lymphocytes % (Manual) Seg Neutrophils # Man Lymphocytes # (Manual) Monocytes # (Manual) PT INR D-Dimer ABG pH ABG pO2 ABG HCO3 ABG O2 Saturation ABG Base Excess ABG Hemoglobin Oxyhemoglobin Sodium Potassium Chloride Carbon Dioxide BUN 21 H Creatinine 0.5 L Glucose 119 H POC Glucose 130 H 111 H Lactic Acid Calcium 8.3 L Phosphorus Magnesium AST ALT Alkaline Phosphatase Lactate Dehydrogenase Troponin T C-Reactive Protein NT-Pro-B Natriuret Pep Total Protein Albumin LDL Cholesterol Direct Vitamin B12 Crossmatch 12/05/21 12/05/21 12/05/21 05:15 10:40 11:12 WBC RBC 2.98 L Hgb 8.1 L Hct 24.6 L MCV MCH 27 L MCHC RDW 20.8 H Plt Count Seg Neuts % (Manual) Lymphocytes % (Manual) Seg Neutrophils # Man Lymphocytes # (Manual) Monocytes # (Manual) PT INR D-Dimer ABG pH ABG pO2 ABG HCO3 ABG O2 Saturation ABG Base Excess ABG Hemoglobin Oxyhemoglobin Sodium Potassium Chloride Carbon Dioxide BUN Creatinine Glucose POC Glucose 107 H 110 H Lactic Acid Calcium Phosphorus Magnesium AST ALT Alkaline Phosphatase Lactate Dehydrogenase Troponin T C-Reactive Protein NT-Pro-B Natriuret Pep Total Protein Albumin LDL Cholesterol Direct Vitamin B12 Crossmatch 12/05/21 12/06/21 12/06/21 23:39 04:25 04:25 WBC RBC 2.95 L Hgb 7.9 L Hct 24.7 L MCV MCH 27 L MCHC RDW 20.9 H Plt Count Seg Neuts % (Manual) Lymphocytes % (Manual) Seg Neutrophils # Man Lymphocytes # (Manual) Monocytes # (Manual) PT INR D-Dimer ABG pH ABG pO2 ABG HCO3 ABG O2 Saturation ABG Base Excess ABG Hemoglobin Oxyhemoglobin Sodium Potassium Chloride Carbon Dioxide BUN 22 H Creatinine 0.5 L Glucose 136 H POC Glucose 118 H Lactic Acid Calcium 8.2 L Phosphorus Magnesium AST ALT Alkaline Phosphatase Lactate Dehydrogenase Troponin T C-Reactive Protein NT-Pro-B Natriuret Pep Total Protein Albumin LDL Cholesterol Direct Vitamin B12 Crossmatch 12/06/21 12/06/21 12/07/21 05:28 11:27 04:00 WBC RBC Hgb 7.2 L Hct 21.8 L MCV MCH MCHC RDW Plt Count Seg Neuts % (Manual) Lymphocytes % (Manual) Seg Neutrophils # Man Lymphocytes # (Manual) Monocytes # (Manual) PT INR D-Dimer ABG pH ABG pO2 ABG HCO3 ABG O2 Saturation ABG Base Excess ABG Hemoglobin Oxyhemoglobin Sodium Potassium Chloride Carbon Dioxide BUN Creatinine Glucose POC Glucose 142 H 126 H Lactic Acid Calcium Phosphorus Magnesium AST ALT Alkaline Phosphatase Lactate Dehydrogenase Troponin T C-Reactive Protein NT-Pro-B Natriuret Pep Total Protein Albumin LDL Cholesterol Direct Vitamin B12 Crossmatch 12/07/21 12/07/21 12/07/21 04:00 05:30 11:12 WBC RBC Hgb Hct MCV MCH MCHC RDW Plt Count Seg Neuts % (Manual) Lymphocytes % (Manual) Seg Neutrophils # Man Lymphocytes # (Manual) Monocytes # (Manual) PT INR D-Dimer ABG pH ABG pO2 ABG HCO3 ABG O2 Saturation ABG Base Excess ABG Hemoglobin Oxyhemoglobin Sodium Potassium Chloride Carbon Dioxide BUN 22 H Creatinine Glucose 119 H POC Glucose 121 H 124 H Lactic Acid Calcium 8.0 L Phosphorus Magnesium AST ALT Alkaline Phosphatase Lactate Dehydrogenase Troponin T C-Reactive Protein NT-Pro-B Natriuret Pep Total Protein Albumin LDL Cholesterol Direct Vitamin B12 Crossmatch 12/08/21 12/08/21 12/08/21 04:00 04:00 05:39 WBC RBC 2.81 L Hgb 7.7 L Hct 23.5 L MCV MCH MCHC RDW 21.2 H Plt Count Seg Neuts % (Manual) Lymphocytes % (Manual) Seg Neutrophils # Man Lymphocytes # (Manual) Monocytes # (Manual) PT INR D-Dimer ABG pH ABG pO2 ABG HCO3 ABG O2 Saturation ABG Base Excess ABG Hemoglobin Oxyhemoglobin Sodium 135 L Potassium Chloride Carbon Dioxide BUN 23 H Creatinine Glucose 109 H POC Glucose 112 H Lactic Acid Calcium Phosphorus Magnesium AST ALT Alkaline Phosphatase Lactate Dehydrogenase Troponin T C-Reactive Protein NT-Pro-B Natriuret Pep Total Protein Albumin LDL Cholesterol Direct Vitamin B12 Crossmatch 12/08/21 12/09/21 12/09/21 11:03 04:20 04:20 WBC RBC 2.67 L Hgb 7.6 L Hct 22.1 L MCV MCH MCHC RDW 20.8 H Plt Count Seg Neuts % (Manual) Lymphocytes % (Manual) Seg Neutrophils # Man Lymphocytes # (Manual) Monocytes # (Manual) PT INR D-Dimer ABG pH ABG pO2 ABG HCO3 ABG O2 Saturation ABG Base Excess ABG Hemoglobin Oxyhemoglobin Sodium 135 L Potassium Chloride 97.8 L Carbon Dioxide BUN 26 H Creatinine Glucose 119 H POC Glucose 108 H Lactic Acid Calcium 7.7 L Phosphorus Magnesium AST ALT Alkaline Phosphatase Lactate Dehydrogenase Troponin T C-Reactive Protein NT-Pro-B Natriuret Pep Total Protein Albumin LDL Cholesterol Direct Vitamin B12 Crossmatch 12/09/21 12/10/21 12/10/21 11:26 04:33 11:12 WBC RBC Hgb Hct MCV MCH MCHC RDW Plt Count Seg Neuts % (Manual) Lymphocytes % (Manual) Seg Neutrophils # Man Lymphocytes # (Manual) Monocytes # (Manual) PT INR D-Dimer ABG pH ABG pO2 ABG HCO3 ABG O2 Saturation ABG Base Excess ABG Hemoglobin Oxyhemoglobin Sodium 136 L Potassium Chloride Carbon Dioxide BUN 27 H Creatinine Glucose 117 H POC Glucose 110 H 117 H Lactic Acid Calcium 8.2 L Phosphorus Magnesium AST ALT Alkaline Phosphatase Lactate Dehydrogenase Troponin T C-Reactive Protein NT-Pro-B Natriuret Pep Total Protein Albumin LDL Cholesterol Direct Vitamin B12 Crossmatch 12/10/21 12/10/21 12/11/21 16:02 23:31 04:35 WBC RBC 2.57 L Hgb 7.0 L Hct 21.4 L MCV MCH 27 L MCHC RDW 21.1 H Plt Count Seg Neuts % (Manual) Lymphocytes % (Manual) Seg Neutrophils # Man Lymphocytes # (Manual) Monocytes # (Manual) PT INR D-Dimer ABG pH ABG pO2 ABG HCO3 ABG O2 Saturation ABG Base Excess ABG Hemoglobin Oxyhemoglobin Sodium Potassium Chloride Carbon Dioxide BUN Creatinine Glucose POC Glucose 137 H 111 H Lactic Acid Calcium Phosphorus Magnesium AST ALT Alkaline Phosphatase Lactate Dehydrogenase Troponin T C-Reactive Protein NT-Pro-B Natriuret Pep Total Protein Albumin LDL Cholesterol Direct Vitamin B12 Crossmatch 12/11/21 12/11/21 12/11/21 04:35 12:46 16:07 WBC RBC Hgb Hct MCV MCH MCHC RDW Plt Count Seg Neuts % (Manual) Lymphocytes % (Manual) Seg Neutrophils # Man Lymphocytes # (Manual) Monocytes # (Manual) PT INR D-Dimer ABG pH ABG pO2 ABG HCO3 ABG O2 Saturation ABG Base Excess ABG Hemoglobin Oxyhemoglobin Sodium 136 L Potassium Chloride Carbon Dioxide BUN 27 H Creatinine Glucose 112 H POC Glucose 115 H 111 H Lactic Acid Calcium 7.6 L Phosphorus Magnesium AST ALT Alkaline Phosphatase Lactate Dehydrogenase Troponin T C-Reactive Protein NT-Pro-B Natriuret Pep Total Protein Albumin LDL Cholesterol Direct Vitamin B12 Crossmatch 12/11/21 12/12/2122 23:42 04:30 04:30 WBC RBC 2.60 L Hgb 7.1 L Hct 21.5 L MCV MCH 27 L MCHC RDW 20.3 H Plt Count Seg Neuts % (Manual) Lymphocytes % (Manual) Seg Neutrophils # Man Lymphocytes # (Manual) Monocytes # (Manual) PT INR D-Dimer ABG pH ABG pO2 ABG HCO3 ABG O2 Saturation ABG Base Excess ABG Hemoglobin Oxyhemoglobin Sodium 135 L Potassium Chloride 97.9 L Carbon Dioxide BUN 26 H Creatinine 0.5 L Glucose 138 H POC Glucose 115 H Lactic Acid Calcium 8.2 L Phosphorus Magnesium AST ALT Alkaline Phosphatase Lactate Dehydrogenase Troponin T C-Reactive Protein NT-Pro-B Natriuret Pep Total Protein Albumin LDL Cholesterol Direct Vitamin B12 Crossmatch 12/12/21 12/12/21 12/12/21 04:30 05:10 11:51 WBC RBC Hgb Hct MCV MCH MCHC RDW Plt Count Seg Neuts % (Manual) Lymphocytes % (Manual) Seg Neutrophils # Man Lymphocytes # (Manual) Monocytes # (Manual) PT INR D-Dimer ABG pH ABG pO2 ABG HCO3 ABG O2 Saturation ABG Base Excess ABG Hemoglobin Oxyhemoglobin Sodium Potassium Chloride Carbon Dioxide BUN Creatinine Glucose POC Glucose 119 H 119 H Lactic Acid Calcium Phosphorus Magnesium AST ALT Alkaline Phosphatase Lactate Dehydrogenase Troponin T C-Reactive Protein NT-Pro-B Natriuret Pep Total Protein Albumin LDL Cholesterol Direct Vitamin B12 Crossmatch See Detail 12/13/21 12/13/21 12/13/21 00:52 04:00 04:00 WBC RBC 2.73 L Hgb 7.4 L Hct 22.8 L MCV MCH 27 L MCHC RDW 20.5 H Plt Count Seg Neuts % (Manual) Lymphocytes % (Manual) Seg Neutrophils # Man Lymphocytes # (Manual) Monocytes # (Manual) PT INR D-Dimer ABG pH ABG pO2 ABG HCO3 ABG O2 Saturation ABG Base Excess ABG Hemoglobin Oxyhemoglobin Sodium 134 L Potassium Chloride 96.7 L Carbon Dioxide BUN 23 H Creatinine 0.5 L Glucose 131 H POC Glucose 131 H Lactic Acid Calcium 8.1 L Phosphorus Magnesium AST ALT Alkaline Phosphatase Lactate Dehydrogenase Troponin T C-Reactive Protein NT-Pro-B Natriuret Pep Total Protein Albumin LDL Cholesterol Direct Vitamin B12 Crossmatch 12/13/21 12/13/21 12/13/21 05:23 12:11 17:18 WBC RBC Hgb Hct MCV MCH MCHC RDW Plt Count Seg Neuts % (Manual) Lymphocytes % (Manual) Seg Neutrophils # Man Lymphocytes # (Manual) Monocytes # (Manual) PT INR D-Dimer ABG pH ABG pO2 ABG HCO3 ABG O2 Saturation ABG Base Excess ABG Hemoglobin Oxyhemoglobin Sodium Potassium Chloride Carbon Dioxide BUN Creatinine Glucose POC Glucose 121 H 143 H 148 H Lactic Acid Calcium Phosphorus Magnesium AST ALT Alkaline Phosphatase Lactate Dehydrogenase Troponin T C-Reactive Protein NT-Pro-B Natriuret Pep Total Protein Albumin LDL Cholesterol Direct Vitamin B12 Crossmatch 12/14/21 12/14/21 12/14/21 00:54 04:20 04:20 WBC RBC 2.39 L Hgb 6.5 L Hct 20.3 L MCV MCH 27 L MCHC RDW 20.3 H Plt Count Seg Neuts % (Manual) Lymphocytes % (Manual) Seg Neutrophils # Man Lymphocytes # (Manual) Monocytes # (Manual) PT INR D-Dimer ABG pH ABG pO2 ABG HCO3 ABG O2 Saturation ABG Base Excess ABG Hemoglobin Oxyhemoglobin Sodium 130 L Potassium Chloride 93.5 L Carbon Dioxide BUN 25 H Creatinine Glucose 123 H POC Glucose 123 H Lactic Acid Calcium 8.0 L Phosphorus Magnesium AST ALT Alkaline Phosphatase Lactate Dehydrogenase Troponin T C-Reactive Protein NT-Pro-B Natriuret Pep Total Protein Albumin LDL Cholesterol Direct Vitamin B12 Crossmatch 12/14/21 12/14/21 12/14/21 05:06 08:17 10:30 WBC RBC Hgb Hct MCV MCH MCHC RDW Plt Count Seg Neuts % (Manual) Lymphocytes % (Manual) Seg Neutrophils # Man Lymphocytes # (Manual) Monocytes # (Manual) PT INR D-Dimer ABG pH ABG pO2 ABG HCO3 ABG O2 Saturation ABG Base Excess ABG Hemoglobin Oxyhemoglobin Sodium Potassium Chloride Carbon Dioxide BUN Creatinine Glucose POC Glucose 131 H 119 H Lactic Acid Calcium Phosphorus Magnesium AST ALT Alkaline Phosphatase Lactate Dehydrogenase Troponin T C-Reactive Protein NT-Pro-B Natriuret Pep Total Protein Albumin LDL Cholesterol Direct Vitamin B12 Crossmatch See Detail 12/14/21 12/14/21 12/14/21 12:15 16:37 23:27 WBC RBC Hgb Hct MCV MCH MCHC RDW Plt Count Seg Neuts % (Manual) Lymphocytes % (Manual) Seg Neutrophils # Man Lymphocytes # (Manual) Monocytes # (Manual) PT INR D-Dimer ABG pH ABG pO2 ABG HCO3 ABG O2 Saturation ABG Base Excess ABG Hemoglobin Oxyhemoglobin Sodium Potassium Chloride Carbon Dioxide BUN Creatinine Glucose POC Glucose 147 H 141 H 130 H Lactic Acid Calcium Phosphorus Magnesium AST ALT Alkaline Phosphatase Lactate Dehydrogenase Troponin T C-Reactive Protein NT-Pro-B Natriuret Pep Total Protein Albumin LDL Cholesterol Direct Vitamin B12 Crossmatch 12/15/21 12/15/21 12/15/21 05:00 07:00 07:00 WBC 12.3 H RBC 3.27 L Hgb 8.8 L Hct 27.5 L D MCV MCH 27 L MCHC RDW 19.0 H Plt Count Seg Neuts % (Manual) Lymphocytes % (Manual) Seg Neutrophils # Man Lymphocytes # (Manual) Monocytes # (Manual) PT INR D-Dimer ABG pH ABG pO2 ABG HCO3 ABG O2 Saturation ABG Base Excess ABG Hemoglobin Oxyhemoglobin Sodium 134 L Potassium Chloride 95.7 L Carbon Dioxide BUN 28 H Creatinine Glucose 129 H POC Glucose 129 H Lactic Acid Calcium 8.2 L Phosphorus Magnesium AST ALT Alkaline Phosphatase Lactate Dehydrogenase Troponin T C-Reactive Protein NT-Pro-B Natriuret Pep Total Protein Albumin LDL Cholesterol Direct Vitamin B12 Crossmatch 12/15/21 12/15/21 12/15/21 11:18 16:00 23:39 WBC RBC Hgb Hct MCV MCH MCHC RDW Plt Count Seg Neuts % (Manual) Lymphocytes % (Manual) Seg Neutrophils # Man Lymphocytes # (Manual) Monocytes # (Manual) PT INR D-Dimer ABG pH ABG pO2 ABG HCO3 ABG O2 Saturation ABG Base Excess ABG Hemoglobin Oxyhemoglobin Sodium Potassium Chloride Carbon Dioxide BUN Creatinine Glucose POC Glucose 139 H 137 H 146 H Lactic Acid Calcium Phosphorus Magnesium AST ALT Alkaline Phosphatase Lactate Dehydrogenase Troponin T C-Reactive Protein NT-Pro-B Natriuret Pep Total Protein Albumin LDL Cholesterol Direct Vitamin B12 Crossmatch 12/16/21 12/16/21 12/16/21 05:24 10:21 10:21 WBC 15.3 H RBC 3.24 L Hgb 8.9 L Hct 27.7 L MCV MCH MCHC RDW 19.0 H Plt Count Seg Neuts % (Manual) Lymphocytes % (Manual) Seg Neutrophils # Man Lymphocytes # (Manual) Monocytes # (Manual) PT INR D-Dimer ABG pH ABG pO2 ABG HCO3 ABG O2 Saturation ABG Base Excess ABG Hemoglobin Oxyhemoglobin Sodium 131 L Potassium 3.5 L Chloride 92.7 L Carbon Dioxide BUN 36 H Creatinine Glucose 160 H POC Glucose 121 H Lactic Acid Calcium Phosphorus Magnesium 1.60 L AST ALT Alkaline Phosphatase Lactate Dehydrogenase Troponin T C-Reactive Protein NT-Pro-B Natriuret Pep Total Protein Albumin LDL Cholesterol Direct Vitamin B12 Crossmatch 12/16/21 12/16/21 12/16/21 11:21 18:28 20:52 WBC RBC Hgb Hct MCV MCH MCHC RDW Plt Count Seg Neuts % (Manual) Lymphocytes % (Manual) Seg Neutrophils # Man Lymphocytes # (Manual) Monocytes # (Manual) PT INR D-Dimer ABG pH 7.479 H ABG pO2 79.3 L ABG HCO3 27.3 H ABG O2 Saturation ABG Base Excess 3.6 H ABG Hemoglobin 9.1 L Oxyhemoglobin 94.9 L Sodium Potassium Chloride Carbon Dioxide BUN Creatinine Glucose POC Glucose 153 H 132 H Lactic Acid Calcium Phosphorus Magnesium AST ALT Alkaline Phosphatase Lactate Dehydrogenase Troponin T C-Reactive Protein NT-Pro-B Natriuret Pep Total Protein Albumin LDL Cholesterol Direct Vitamin B12 Crossmatch 12/16/21 12/17/21 12/17/21 23:30 04:25 04:25 WBC 12.3 H RBC 2.16 L Hgb 6.0 L Hct 18.1 L* D MCV MCH MCHC RDW 19.4 H Plt Count Seg Neuts % (Manual) Lymphocytes % (Manual) Seg Neutrophils # Man Lymphocytes # (Manual) Monocytes # (Manual) PT INR D-Dimer ABG pH ABG pO2 ABG HCO3 ABG O2 Saturation ABG Base Excess ABG Hemoglobin Oxyhemoglobin Sodium 132 L Potassium 3.2 L Chloride 112.0 H Carbon Dioxide BUN 32 H Creatinine Glucose 122 H POC Glucose 137 H Lactic Acid Calcium 6.8 L D Phosphorus Magnesium AST ALT Alkaline Phosphatase Lactate Dehydrogenase Troponin T C-Reactive Protein NT-Pro-B Natriuret Pep Total Protein Albumin LDL Cholesterol Direct Vitamin B12 Crossmatch 12/17/21 12/17/21 05:30 11:49 WBC RBC Hgb Hct MCV MCH MCHC RDW Plt Count Seg Neuts % (Manual) Lymphocytes % (Manual) Seg Neutrophils # Man Lymphocytes # (Manual) Monocytes # (Manual) PT INR D-Dimer ABG pH ABG pO2 ABG HCO3 ABG O2 Saturation ABG Base Excess ABG Hemoglobin Oxyhemoglobin Sodium Potassium Chloride Carbon Dioxide BUN Creatinine Glucose POC Glucose 137 H 143 H Lactic Acid Calcium Phosphorus Magnesium AST ALT Alkaline Phosphatase Lactate Dehydrogenase Troponin T C-Reactive Protein NT-Pro-B Natriuret Pep Total Protein Albumin LDL Cholesterol Direct Vitamin B12 Crossmatch Allied health notes reviewed: nursing
[2021-12-17 15:04] LABS: Hematocrit 30.8 % (30.3-42.9); Hemoglobin 9.7 gm/dl (10.1-14.3)
[2021-12-17] MEDS: HYDROmorphone 1 MG/1 ML INJ IV PRN (19:20)
[2021-12-17] MEDS: QUEtiapine 25 MG TAB PO SCH (21:21)
[2021-12-17] MEDS: traZODone 50 MG TAB PO SCH (21:21)
[2021-12-17] MEDS: PRAVASTATIN 20 MG TAB PO SCH (21:21)
[2021-12-17] MEDS: MELATONIN 5 MG TAB PO SCH (21:22)
[2021-12-18] MEDS: CEFEPIME/NS 2 GM/100 ML 2 GM/100 ML BAG IV SCH ×2 (02:42→15:00)
[2021-12-18] MEDS: ALPRAZolam 0.25 MG TAB PO PRN (05:29)
[2021-12-18] MEDS: LEVOTHYROXINE 125 MCG TAB PO SCH (05:29)
[2021-12-18 05:41] LABS: Hematocrit 28.8 % (30.3-42.9); Hemoglobin 9.9 gm/dl (10.1-14.3); Mean Corpuscular HGB Conc 34 % (30-34); Mean Corpuscular Volume 84 fl (79-97); Platelet Count 227 K/mm3 (140-440); Red Blood Count 3.44 M/mm3 (3.65-5.03); Red Cell Distribution Width 18.1 % (13.2-15.2)
[2021-12-18 05:59] LABS: Blood Urea Nitrogen 38 mg/dL (7-17); Calcium 8.8 mg/dL (8.4-10.2); Hemolysis Index 2
[2021-12-18 06:00] LABS: BUN/Creatinine Ratio 63
[2021-12-18] MEDS: MIDODRINE 5 MG TAB PO SCH ×2 (08:11→19:37)
[2021-12-18] MEDS: SUCRALFATE 1 GM/10 ML ORAL LIQD PO SCH ×4 (08:30→21:23)
[2021-12-18] MEDS: HYDROcodone/ACETAMINOPHEN 10-325MG TAB FEEDTUBE SCH ×3 (08:36→19:36)
[2021-12-18] MEDS ORDERED: ALPRAZolam 0.5 MG TAB PO ONE (10:00)
[2021-12-18] MEDS: busPIRone 5 MG TAB PO SCH ×2 (10:00→21:22)
[2021-12-18] MEDS: GABAPENTIN 100 MG CAP PO SCH (10:00)
[2021-12-18] MEDS: LANSOPRAZOLE 30 MG SOLUTAB FEEDTUBE SCH ×2 (10:01→21:23)
[2021-12-18] MEDS: METOPROLOL TARTRATE 25 MG TAB PO SCH ×2 (10:01→21:38)
[2021-12-18] MEDS: FUROSEMIDE 20 MG TAB PO SCH (10:01)
--- NOTE | 2021-12-18 11:44 | Progress Note ---
<LONNIE MAURICE - Last Filed: 12/19/21 08:33> Assessment and Plan Assessment and plan: This is a 81-year-old female with known history of diabetes mellitus, hypertension, PPM, and arthritis admitted for sepsis and acute hypoxia respiratory failure 2/2 bilateral pneumonia requiring intubation and ventilatory support Hospital Course to date: 11/04/2021: Empiric therapy with iv levaquin/vancomycin. COVID PCR pending. Will consult ID. PCCM consulted, will follow recs. Hypotensive this AM, ordered bolus and fluids at 150 cc/hr. May require pressor support if bp does not improve. 11/05/2021: GBS on bcx +, currently on rocephin IV. Currently on bipap due to respiratory distress overnight. Worsening BL opacities on CXR. May be volume overload vs pneumonia. Unfortunately bp too low for lasix at this point. WIll continue levophed and bipap. Once able to tolerate, may do trial of albumin/lasi x. Call attempt made to Niraj, no response. Will try again tomorrow to update. 11/06/2021: Decompensated overnight requiring intubation. CXR shows worsening interstitial infiltrates. Currenlty on dopamine, levophed, vasopressin. PICC line ordered. Advised RN to place gamble for I/O monitoring. Would benefit from diuresis but very volume overloaded. Prognosis guarded 11/08: Off sedation this am, remains unresponsive only grimace to pain. Hold all sedatives agents for now, patient is off pressors this am. Hypernatremia from today's lab- D5W X1bag, and low K repleted, repeat lab in the am. Severe constipation also noted from KUB, BR added. 11/09: Sudden SPO2 drop in the 60s this am. Patient was manually bagged and deep suctioned. Patient is currently stable on the vent, repeat CXR with no significant change. D/w CCM Mucomyst and brochodilator added. Patient mentation is unchanged, continue to hold off on sedative agents. Neurology consulted. 11/10: Acute DVT noted on bilateral lower extremity Doppler ultrasound therefore she was started on Lovenox treatment dose. Failed SBT. Hypernatremia and hyperchloremia noted, free water flush adjusted. 11/11: Patient noted to be febrile with increasing of the cytosis, UA/BC sent and CXR ordered. ID escalated antibiotics to cefepime. CXR demonstrated mucous plug, bedside bronchoscopy was performed and O ETT was changed over bougie from 6 cm to 7.5. Patient was noted to have a pneumothorax postprocedure and chest tube was placed. Family updated by [facility]. Free water flush increased and will add Jaswant supplementation. 11/12: Patient not noted to follow commands, hypernatremia worsen/persist, increasing free water flush, potassium and magnesium and phosphorus repleted. Hemoglobin noted to be 7.1/24.5 from 7.03/12 yesterday. We will continue to trend and monitor. Vent changes per [facility]. Repeat CXR showed no residual pneumo thorax. Consider waterseal tomorrow. Given persistent leukocytosis antibiotics escalated to cefepime per ID. 11/13: Remains on cefepime and vancomycin, vent changes per [facility]. Anemia noted and given 1 unit PRBC. And beta-charleen held in setting of Levophed drip infusing. Remains on fentanyl drip. 11/14: Patient put on CPAP trial by [facility], will continue chest tube until after extubation. Will rest on assist control. CT brain was cancelled by Runner and reordered. 11/15: Patient removed chest tube overnight. Will obtain cxr. remains on low dose levo. CTH completed with no acute findings. RT to place on CPAP. 11/16: Hypernatremia/hyperchloremia noted on the increase of day water flushes. Anemia noted and ordered PRBC. asked RT to place on cpap but not done yet 11/17: Patient remains on the vent, awake and following commands. H&H stable s/p 2units PRBCs. GI on consult, no intervention at this time. Will continue protonix gtt and serial H&H Q6hrs. Keep patient NPO for now, D5w added for hypernatremia and NPO status. Plan for IVC filter placement today by Vascular. 11/18: Patient is s/p IVC filter. H&H continue to trend down, hbg 6.1 this am, 1 unit of PRBCs ordered. Plan for possible EGD today by GI. Keep patient NPO, continue PPI drip and serial H&H Q6hrs. Electrolytes repleted, repeat lab in the am 11/19: S/p EGD- larger duodenal ulcer noted, see operative note. GI recommendat ions noted also noted. H&H stable this am. Keep patient on protonix gtt for now. Will keep patient NPO, continue IVF and serial H&H for now. Electrolytes repleted, repeat labs in the am 2/3: Very agitated and restless this am, fentanyl gtt resumed. Patient remains on protonix gtt, H&H remains stable. Will switch protonix gtt to IV BID, continue carafate and okay to resume meds at this time. Will F/u with GI to see if TF can be resumed. Gamble was reinserted overnight for retention. Electrolytes repleted, repeat in the am. Plan for possible PST today for possible extubation per CCM. 11/21: Patient is now on seroquel and patient's home buspar resumed. Patient more calm this morning, fentanyl gtt is off. H&H remains stable and patient is tolerating TF. Patient had a runs of Vtach/PVCs this am, BB added per Cardio. Continue daily PS and wean trial for possible extubation. 11/22: Back on fentanyl gtt overnight , RASS o to -1, following commands. Patient failed PST this am due to increased work of breathing and low SPO2, ABG pending. Patient is also with worsen pitting edema, lasix is still on hold. Will discuss with cardio and CCM to possibly resume lasix. 11/23: MARIA DEL CARMEN overnight. Patient failed PST again this am. Per CCM plan for possible trach and PEG, hold off on IV lasix for now. General surgery consulted and family is aware of possible Trach and PEG. 11/24: Trach/PEG pending this week, continue SBT/SAT as tolerated. No acute events reported overnight. 11/25: Patient was n.p.o. overnight and will remain n.p.o. tonight for trach/PEG tomorrow morning. She failed to support trial again. KUB obtained due to distended belly. 11/26: Patient scheduled for tracheostomy and PEG tube placement today, has been n.p.o. since midnight. No acute events reported overnight. [facility] ordered rosalinda thicone scheduled. 11/27: No acute events reported overnight, patient received trach/PEG yesterday. Has been on feedings since last night. Still awaiting LTAC placement. 11/28: Patient magnesium repleted, repeat a.m. labs, SBT 11/29: Patient complains of chest pain but ECG obtained which showed no acute findings, ordered troponin. Patient failed CPAP yesterday and was trialed again today. levophed was restarted but will aggressively wean 11/30: Patient failed SBT. Continue supportive care. Started gabapentin today 12/01: MARIA DEL CARMEN overnight. Continue daily PST. Case management to arrange possible placement 12/02: Report of dark stools overnight, patient is hemodynamically stable. H&H stable, patient is on PPI. Will continue to trend H&H. Continue daily PST as tolerated. Awaiting LTAC vs SNF placement. 12/03: Hypotensive overnight, requiring low dose pressors. S/p X3 days of gentle diurese. Will continue to monitor, wean off pressors as tolerated for MAP of 65. Patient Failed PST yesterday, case management to follow up with insurance for possible LTAC placement. Continue daily PST as tolerated. PT eval and treat ordered. 12/04: Increased agitation and anxiety overnight, remains on buspar and seroquel, trazadone added to promote rest. Patient is now working with PT, keep patient engage and awake during the day so she can rest at night. No BM for over 5 days, BR was adjusted. Patient did not tolerate PST again yesterday, continue daily PST as tolerated. Continue to titrate pressor for MAP above 65. Pending possible LTAC placement, case management to arrange. 12/05: Still not getting much rest overnight, will add melatonin for sleep. Continue to engage patient during the day and promote rest at night. TF was held due to concern for possible bleeding, H&H remains stable and stools normal this am. Resume TF and continue PPI and carafate. Remains on low dose levophed, titrate as tolerated. Continue daily PST. Possible LTAC placement, awaiting approval. 12/06: MARIA DEL CARMEN overnight. Patient rested overnight. Continue supportive measures. Daily PST as tolerated. Awaiting possible LTAC placement 12/07: MARIA DEL CARMEN overnight. Plan for Tpiece trial today. Continue current supportive measures. Possible LTAC placement 12/08: Patient placed on pressure support trial again today, started on Xanax, no acute events reported overnight. Awaiting insurance approval for LTAC. 12/09: Levophed discontinued, LTAC transfer denied, started on midodrine and Lasix, ultrasound chest pending, started on Xanax 0.[address] De León updated family at bedside today. Started on Dilaudid every 3 hours as needed. 12/10: Patient placed on CPAP trial this morning, no acute events reported overnight. Will order ultrasound-guided thoracentesis. 12/11: Patient had a thoracentesis today, will decrease Xanax dosage and continue midodrine and diuresing. Patient failed CPAP today. 12/12: Patient not tolerate CPAP trials today, no acute events reported overnight 12/13: No acute events overnight. continue PSV trials as tolerated. Daughter updated at bedside 12/14: Patient noted to be anemic today, worsened gastric occult. Patient seems to be oversedated therefore Xanax changed to as needed and fentanyl patch discontinued. We will continue to monitor hyponatremia. 12/15: MARIA DEL CARMEN overnight. s/p 1unit of PRBCs, H&H stable this am, no signs of any active bleeding. Continue daily PST as tolerated. Awaiting placement. 12/16: Hypertensive this am, Midodrine decreased. Continue daily PST. MARIA DEL CARMEN overnight 12/17: Patient Hgb dropped to 6 this am, no s/s of any active bleeding, VSS. Patient received 1unit of PRBC, will continue to trend H&H. Patient was pancultured and back on IV Abx due to persistent fevers yesterday. ID is also back on the case. Continue IV Abx per ID and f/u on cultures data for sensitivity. Patient also failed PST yesterday, continue daily PST as tolerated. Electrolytes repleted, repeat labs in the am. 12/18: Patient blood cultures is growing GPC 4 out 4 bottles. PICC line D/Rivas, patient is already on IV Abx-cefepine and Vanc and ID is following. Patient remains hemodynamically stable. Daily PST as tolerated adn PRN Benzo for anxiety. Assessment and Plan #Bacteremia #Septic Shock POA-resolved #Bilateral Pneumonia-resolved - Presented with fevers, leukocytosis, and hypotension - COVID PCR negative - 11/04 Bcult with 3/4 group B strep bacteremia, [id number] Bculture NGTD - 11/04 2D Echo with no evidence of vegetation - New fevers on 12/16- Blood culture with GPC in clusters 4/4 bottles - 12/16- UA is unremarkable, sputum culture pending - ID on consult, appreciate recommendations - Back on IV Abx- Cefepine and Vanco - CVC vacation- insert PIV access - Trend CBC #Acute Hypoxic Respiratory Failure 2/ #Bilateral Pleural Effusion #Right Pneumothorax-resolved #Bilateral Pneumonia - COVID PCR negative - CXR shows Bilateral opacities, may be volume overloaded - [facility] consulted, appreciate recommendations - Intubated on 11/06, ETT exchanged on 11/11 - 11/11 Bronchoscopy--Complicated by spontaneous pneumothorax - 11/11 S/p chest tube placement for right pneumothorax, removed by patient on 11/15 - 11/26 s/p Tracheostomy and PEGtube placement - 12/11 US thoracentesis due to moderate pleural effusion-1L removed - This am Vent Setting:A/C-30%,6,14,400 - On PO Lasix - Continue Nebs treatment - Continue daily PST as tolerated - VAP bundle addressed - Aspiration precaution HOB above 30 - PRN ABG and CXR per [facility] - Continue SPO2 monitoring for SPO2 goal above 92% #CHF- EF 30-35% with PPM #Hypotension #Septic Kristian-resolved - SR on the monitor, HR 70-90s - 11/04 Echo-EF 30-35% - Now on Midodrine TID - Continue beta-charleen - Not on aspirin due to allergy - Statins resumed - Continue blood pressure monitor per protocol - Maintain MAP above 65 - Cardiology signed off #Acute Microcytic Anemia #Acute Blood Loss-resolved #Acute GI Bleed-resolved - s/p a total of 7units of PRBCs since admit - 11/18 EGD- Large cratered ulcer in the posterior duodenal bulb about 2 cm in diameter. Visible vessel present. Mild active oozing from the ulcer bed. A total of 3 injections were performed around the ulcer for a total of 2.5 cc of dilute epinephrine and hemostasis was obtained.--> See full report - GI signed off - Stool occult still positive - H&H dropped this am, no s/s of any active bleeding, s/p 1unit of PRBC - Continue PPI and Carafate - Continue to trend CBC - Transfuse for H&H less than 7 - Hold AC for now #Hypokalemia #Hyponatremia - Back on PO lasix - Strict intake and output - Continue to monitor and replace electrolytes as needed - Trend BMP,mag, & phosp #Urinary Retention - Gamble reinserted on 11/19 for retention - Keep gamble for now #Acute DVT in RLE - BLE doppler + Acute DVT in the right external iliac vein, common femoral vein, and superior aspect of femoral vein - Was on Therapeutic Lovenox- held to due GI Bleed - 11/17 s/p IVC filter placement by Vascular Surg #Agitation #Acute Encephalopathy-Resolved - Awake and following commands - Continue Buspar and seroquel - PRN Xanax for anxiety - CT head noted - Neurology consulted - PRN analgesia for pain management #Transaminitis/Shock Liver - Probably due to bacteria/spetic shock - Continue to Trend LFTs #Endo: h/o DM and hypothyroidism - Continue home Synthroid - Accu-Cheks every 6 - Avoid hypoglycemia The high probability of a clinically significant, sudden or life threatening deterioration of the [multi] system(s) required my full and direct attention, intervention and personal management. The aggregate critical care time was [60] minutes. This time is in addition to time spent performing reported procedures but includes the following: [x] Data Review and interpretation [x] Patient assessment and monitoring of vital signs [x] Documentation [x] Medication orders and management Disposition Plan: ICU Total Time Spent with Patient (Minutes): 60 History Interval history: Patient seen and examined at the bedside. Remains stable on the vent, AAO, following commands. Per RN, patient failed PST this am due to increase anxiety, 0.5 of xanax administered. MARIA DEL CARMEN overnight Hospitalist Physical - Constitutional Vitals: Temp Pulse Resp BP Pulse Ox 98.7 F 78 2 L 138/62 97 12/18/21 11:14 12/18/21 11:00 12/18/21 10:30 12/18/21 11:00 12/18/21 11:00 General appearance: Present: no acute distress, other (Trach and on the vent) - EENT Eyes: Present: PERRL ENT: hearing intact - Neck Neck: Present: normal ROM - Respiratory Respiratory effort: labored Respiratory: bilateral: rhonchi - Cardiovascular Rhythm: regular Heart Sounds: Present: S1 & S2 - Extremities Extremities: no ischemia, pulses intact, pulses symmetrical Extremity abnormal: edema - Peripheral Assessment Left Upper Extremity Edema Type: Pitting Edema Degree: 2+ Capillary Refill: < 3 seconds Skin Temperature: Warm Generalized Edema Type: Non-pitting Edema Degree: 2+ Capillary Refill: < 3 seconds Skin Temperature: Warm Peripheral Pulses: within normal limits - Abdominal General gastrointestinal: soft, non-distended, normal bowel sounds - Integumentary Integumentary: Present: warm, dry - Psychiatric Psychiatric: appropriate mood/affect, cooperative - Neurologic Neurologic: moves all extremities - Allied Health Allied health notes reviewed: nursing, case management HEART Score - HEART Score Troponin: Troponin T 0.045 ng/mL (0.00-0.029) H 11/29/21 20:15 Results - Labs CBC & Chem 7: 12/18/21 05:04 12/18/21 05:04 Labs: Laboratory Last Values WBC 13.8 K/mm3 (4.5-11.0) H 12/18/21 05:04 RBC 3.44 M/mm3 (3.65-5.03) L 12/18/21 05:04 Hgb 9.9 gm/dl (10.1-14.3) L 12/18/21 05:04 Hct 28.8 % (30.3-42.9) L 12/18/21 05:04 MCV 84 fl (79-97) 12/18/21 05:04 MCH 29 pg (28-32) 12/18/21 05:04 MCHC 34 % (30-34) 12/18/21 05:04 RDW 18.1 % (13.2-15.2) H 12/18/21 05:04 Plt Count 227 K/mm3 (140-440) 12/18/21 05:04 Add Manual Diff Complete 11/16/21 15:25 Total Counted 100 11/16/21 15:25 Seg Neutrophils % Wood Borer 11/06/21 15:50 Seg Neuts % (Manual) 87.0 % (40.0-70.0) H 11/16/21 15:25 Band Neutrophils % 0 % 11/16/21 15:25 Lymphocytes % (Manual) 8.0 % (13.4-35.0) L 11/16/21 15:25 Reactive Lymphs % (Man) 0 % 11/16/21 15:25 Monocytes % (Manual) 5.0 % (0.0-7.3) 11/16/21 15:25 Eosinophils % (Manual) 0 % (0.0-4.3) 11/16/21 15:25 Basophils % (Manual) 0 % (0.0-1.8) 11/16/21 15:25 Metamyelocytes % 0 % 11/16/21 15:25 Myelocytes % 0 % 11/16/21 15:25 Promyelocytes % 0 % 11/16/21 15:25 Blast Cells % 0 % 11/16/21 15:25 Nucleated RBC % Not Reportable 11/16/21 15:25 Seg Neutrophils # Man 15.0 K/mm3 (1.8-7.7) H 11/16/21 15:25 Band Neutrophils # 0.0 K/mm3 11/16/21 15:25 Lymphocytes # (Manual) 1.4 K/mm3 (1.2-5.4) 11/16/21 15:25 Abs React Lymphs (Man) 0.0 K/mm3 11/16/21 15:25 Monocytes # (Manual) 0.9 K/mm3 (0.0-0.8) H 11/16/21 15:25 Eosinophils # (Manual) 0.0 K/mm3 (0.0-0.4) 11/16/21 15:25 Basophils # (Manual) 0.0 K/mm3 (0.0-0.1) 11/16/21 15:25 Metamyelocytes # 0.0 K/mm3 11/16/21 15:25 Myelocytes # 0.0 K/mm3 11/16/21 15:25 Promyelocytes # 0.0 K/mm3 11/16/21 15:25 Blast Cells # 0.0 K/mm3 11/16/21 15:25 WBC Morphology Not Reportable 11/16/21 15:25 Hypersegmented Neuts Not Reportable 11/16/21 15:25 Hyposegmented Neuts Not Reportable 11/16/21 15:25 Hypogranular Neuts Not Reportable 11/16/21 15:25 Smudge Cells Not Reportable 11/16/21 15:25 Toxic Granulation Not Reportable 11/16/21 15:25 Toxic Vacuolation Not Reportable 11/16/21 15:25 Dohle Bodies Not Reportable 11/16/21 15:25 Pelger-Huet Anomaly Not Reportable 11/16/21 15:25 Irina Rods Not Reportable 11/16/21 15:25 Platelet Estimate Consistent w auto 11/16/21 15:25 Clumped Platelets Rare 11/16/21 15:25 Plt Clumps, EDTA Not Reportable 11/16/21 15:25 Large Platelets Not Reportable 11/16/21 15:25 Giant Platelets Not Reportable 11/16/21 15:25 Platelet Satelliting Not Reportable 11/16/21 15:25 Plt Morphology Comment Not Reportable 11/16/21 15:25 RBC Morphology Not Reportable 11/16/21 15:25 Dimorphic RBCs Not Reportable 11/16/21 15:25 Polychromasia Not Reportable 11/16/21 15:25 Hypochromasia 2+ 11/16/21 15:25 Poikilocytosis Not Reportable 11/16/21 15:25 Anisocytosis 2+ 11/16/21 15:25 Microcytosis Not Reportable 11/16/21 15:25 Macrocytosis Not Reportable 11/16/21 15:25 Spherocytes Not Reportable 11/16/21 15:25 Pappenheimer Bodies Not Reportable 11/16/21 15:25 Sickle Cells Not Reportable 11/16/21 15:25 Target Cells 2+ 11/16/21 15:25 Tear Drop Cells Not Reportable 11/16/21 15:25 Ovalocytes Not Reportable 11/16/21 15:25 Helmet Cells Not Reportable 11/16/21 15:25 [place] Bodies Not Reportable 11/16/21 15:25 Oblong Rings Not Reportable 11/16/21 15:25 Malcom Cells Not Reportable 11/16/21 15:25 Bite Cells Not Reportable 11/16/21 15:25 Crenated Cell Not Reportable 11/16/21 15:25 Elliptocytes Not Reportable 11/16/21 15:25 Acanthocytes (Spur) Not Reportable 11/16/21 15:25 Rouleaux Not Reportable 11/16/21 15:25 Hemoglobin C Crystals Not Reportable 11/16/21 15:25 Schistocytes Not Reportable 11/16/21 15:25 Malaria parasites Not Reportable 11/16/21 15:25 Godfrey Bodies Not Reportable 11/16/21 15:25 Hem Pathologist Commnt No 11/16/21 15:25 PT 16.9 Sec. (12.2-14.9) H 11/26/21 05:00 INR 1.24 (0.87-1.13) H 11/26/21 05:00 APTT 29.2 Sec. (24.2-36.6) 11/26/21 05:00 D-Dimer 2655.00 ng/mlDDU (0-234) H 11/11/21 04:28 ABG pH 7.479 pH Units (7.350-7.450) H 12/16/21 20:52 ABG pCO2 37.5 mm Hg 12/16/21 20:52 ABG pO2 79.3 mm Hg (80.0-90.0) L 12/16/21 20:52 ABG HCO3 27.3 mmol/L (20.0-26.0) H 12/16/21 20:52 ABG O2 Saturation 97.0 % (95.0-99.0) 12/16/21 20:52 ABG O2 Content 12.3 (0.0-44) 12/16/21 20:52 ABG Base Excess 3.6 mmol/L (-2.0-3.0) H 12/16/21 20:52 ABG Hemoglobin 9.1 gm/dl (12.0-16.0) L 12/16/21 20:52 ABG Carboxyhemoglobin 1.6 % (0.0-5.0) 12/16/21 20:52 ABG Methemoglobin 0.5 % (0.0-1.5) 12/16/21 20:52 Oxyhemoglobin 94.9 % (95.0-99.0) L 12/16/21 20:52 FiO2 30 % 12/16/21 20:52 Sodium 132 mmol/L (137-145) L 12/18/21 05:04 Potassium 4.9 mmol/L (3.6-5.0) D 12/18/21 05:04 Chloride 97.4 mmol/L (98-107) L 12/18/21 05:04 Carbon Dioxide 24 mmol/L (22-30) 12/18/21 05:04 Anion Gap 16 mmol/L 12/18/21 05:04 BUN 38 mg/dL (7-17) H 12/18/21 05:04 Creatinine 0.6 mg/dL (0.6-1.2) 12/18/21 05:04 Estimated GFR > 60 ml/min 12/18/21 05:04 BUN/Creatinine Ratio 63 % 12/18/21 05:04 Glucose 134 mg/dL (65-100) H 12/18/21 05:04 POC Glucose 132 mg/dL (70-105) H 12/18/21 10:57 Lactic Acid 3.70 mmol/L (0.7-2.0) H* 11/03/21 22:32 Calcium 8.8 mg/dL (8.4-10.2) D 12/18/21 05:04 Phosphorus 2.90 mg/dL (2.5-4.5) 12/18/21 05:04 Magnesium 2.10 mg/dL (1.7-2.3) 12/18/21 05:04 Ferritin 52.6 ng/mL (10.0-200.0) 11/05/21 06:11 Total Bilirubin 0.50 mg/dL (0.1-1.2) 11/17/21 05:56 Direct Bilirubin < 0.2 mg/dL (0-0.2) 11/11/21 04:28 Indirect Bilirubin 0.1 mg/dL 11/11/21 04:28 AST 36 units/L (5-40) 11/17/21 05:56 ALT 47 units/L (7-56) 11/17/21 05:56 Alkaline Phosphatase 107 units/L (35-129) 11/17/21 05:56 Ammonia 42.0 umol/L (25-60) 11/10/21 14:08 Lactate Dehydrogenase 187 units/L (91-180) H 11/05/21 06:11 Troponin T 0.045 ng/mL (0.00-0.029) H 11/29/21 20:15 C-Reactive Protein 22.20 mg/dL (0.00-1.30) H 11/05/21 06:11 NT-Pro-B Natriuret Pep 7895 pg/mL (0-900) H 11/03/21 22:32 Total Protein 5.1 g/dL (6.3-8.2) L 11/17/21 05:56 Albumin 2.2 g/dL (3.9-5) L 11/17/21 05:56 Albumin/Globulin Ratio 0.8 % 11/17/21 05:56 Triglycerides 59 mg/dL (2-149) 11/29/21 20:15 Cholesterol 74 mg/dL (50-199) 11/29/21 20:15 LDL Cholesterol Direct 25 mg/dL (50-130) L 11/29/21 20:15 HDL Cholesterol 41 mg/dL (40-59) 11/29/21 20:15 Cholesterol/HDL Ratio 1.80 % 11/29/21 20:15 Vitamin B12 1823 pg/mL (211-911) H 11/10/21 14:08 TSH 1.510 mlU/mL (0.270-4.200) 11/10/21 14:08 Urine Color Yellow (Yellow) 11/11/21 09:00 Urine Turbidity Slightly-cloudy (Clear) 11/11/21 09:00 Urine pH 5.0 (5.0-7.0) 11/11/21 09:00 Ur Specific [place] 1.009 (1.003-1.030) 11/11/21 09:00 Urine Protein <15 mg/dl mg/dL (Negative) 11/11/21 09:00 Urine Glucose (UA) Neg mg/dL (Negative) 11/11/21 09:00 Urine Ketones Neg mg/dL (Negative) 11/11/21 09:00 Urine Blood Mod (Negative) 11/11/21 09:00 Urine Nitrite Neg (Negative) 11/11/21 09:00 Urine Bilirubin Neg (Negative) 11/11/21 09:00 Urine Urobilinogen < 2.0 mg/dL (<2.0) 11/11/21 09:00 Ur Leukocyte Esterase Neg (Negative) 11/11/21 09:00 Urine WBC (Auto) < 1.0 /HPF (0.0-6.0) 11/11/21 09:00 Urine RBC (Auto) < 1.0 /HPF (0.0-6.0) 11/11/21 09:00 Coronavirus (PCR) Negative (Negative) 11/10/21 08:30 Blood Type O POSITIVE 12/14/21 10:30 Antibody Screen Negative 12/14/21 10:30 Crossmatch See Detail 12/14/21 10:30 Microbiology: Microbiology 11/03/21 22:32 Peripheral/Venous Blood Culture - Final Beta Hemolytic Strep Group B 12/16/21 Unknown Tracheal Aspirate Sputum Culture - Preliminary 12/16/21 15:09 Peripheral/Venous Blood Culture - Preliminary 12/16/21 14:53 Peripheral/Venous Blood Culture - Preliminary Gamble/IV: Voiding Method Indwelling Catheter Active Medications - Current Medications Current Medications: Generic Name Dose Route Start Last Admin Trade Name Freq PRN Reason Stop Dose Admin Acetaminophen 650 mg 12/14/21 04:12 12/16/21 13:34 Acetaminophen 325 Mg/10.15 Ml Oral Liqd Unit Dose FEEDTUBE 650 mg Q6H PRN Administration Non Cardiac Pain or Temp>100.5 Hydrocodone Bitart/Acetaminophen 1 each 11/21/21 10:00 12/18/21 08:36 Hydrocodone/Acetaminophen 10-325mg Tab FEEDTUBE 1 each TID YOSSI Administration Alprazolam 0.25 mg 12/14/21 09:00 12/18/21 05:29 Alprazolam 0.25 Mg Tab PO 0.25 mg Q8H PRN Administration Agitation Lipase/Protease/Amylase 1 each 11/08/21 11:09 Lipase 10,500/Protease 25,000/Amylase 43,750 (Units) Dr Lema FEEDTUBE PRN PRN For Clogged Feeding Tube Buspirone HCl 7.5 mg 11/17/21 22:00 12/18/21 10:00 Buspirone 5 Mg Tab PO 7.5 mg BID YOSSI Administration Dextrose 0 ml 11/10/21 10:52 11/21/21 16:27 Dextrose 10% *Hypoglycemia IV 50 ml PRN PRN Administration Hypoglycemia Docusate Sodium 100 mg 12/04/21 11:00 12/17/21 21:22 Docusate Sodium 100 Mg/10 Ml Oral Liqd PO Not Given BID YOSSI Furosemide 20 mg 12/09/21 10:00 12/18/21 10:01 Furosemide 20 Mg Tab PO 20 mg QDAY YOSSI Administration Gabapentin 100 mg 12/01/21 10:00 12/18/21 10:00 Gabapentin 100 Mg Cap PO 100 mg QDAY YOSSI Administration Hydromorphone HCl 0.5 mg 12/08/21 20:06 12/17/21 19:20 Hydromorphone 1 Mg/1 Ml Inj IV 0.5 mg Q3H PRN Administration Pain, Moderate (4-6) Hydrophilic Ointment 1 applic 11/06/21 04:02 Lip Therapy Vaseline TP Q2HR PRN Dry Lips Cefepime HCl 2 gm in 100 mls @ 200 mls/hr 12/16/21 14:00 12/18/21 02:42 Cefepime/Ns 2 Gm/100 Ml IV 200 mls/hr Q12H [facility] Administration Protocol Vancomycin HCl 1 gm in 250 mls @ 166.667 mls/hr 12/16/21 14:00 12/17/21 14:15 Vancomycin/Ns 1 Gm/250 Ml IV 166.667 mls/hr Q24H [facility] Administration Protocol Lansoprazole 30 mg 11/24/21 22:00 12/18/21 10:01 Lansoprazole 30 Mg Solutab FEEDTUBE 30 mg BID [facility] Administration Levothyroxine Sodium 125 mcg 11/05/21 07:00 12/18/21 05:29 Levothyroxine 125 Mcg Tab PO 125 mcg DAILY@0600 [facility] Administration Melatonin 5 mg 12/05/21 22:00 12/17/21 21:22 Melatonin 5 Mg Tab PO 5 mg QHS [facility] Administration Metoprolol Tartrate 6.25 mg 12/08/21 22:52 12/18/21 10:01 Metoprolol Tartrate 25 Mg Tab PO 6.25 mg BID [facility] Administration Midodrine 5 mg 12/16/21 20:00 12/18/21 08:11 Midodrine 5 Mg Tab PO Not Given 08,1999 [facility] Multi-Ingred Cream/Lotion/Oil/Oint 1 applic 11/06/21 04:02 Mineral Oil/Petrolatum, White Ophth Oint 3.5 Gm OU Q4HR PRN Dry Eye(s) Nitroglycerin 0.4 mg 11/30/21 11:36 Nitroglycerin 0.4 Mg Tab Subl SL .Q5MIN PRN Chest Pain Ondansetron HCl 4 mg 12/05/21 10:00 12/08/21 05:17 Ondansetron 4 Mg/2 Ml Inj IV 4 mg Q8H PRN Administration Nausea And Vomiting Polyethylene Glycol 17 gm 12/02/21 10:00 12/17/21 09:41 Polyethylene Glycol 3350 17 Gm Powder PO 17 gm QDAY YOSSI Administration Pravastatin Sodium 20 mg 11/18/21 22:00 12/17/21 21:21 Pravastatin 20 Mg Tab PO 20 mg QHS YOSSI Administration Quetiapine Fumarate 50 mg 12/01/21 22:00 12/17/21 21:21 Quetiapine 25 Mg Tab PO 50 mg QHS YOSSI Administration Senna 17.6 mg 11/08/21 22:00 12/17/21 21:22 Sennosides Oral Liqd 8.8 Mg/5 Ml Oral Liqd PO Not Given Q12HR YOSSI Simple Syrup 15 ml 11/08/21 11:09 Simple Syrup 15 Ml FEEDTUBE PRN PRN Hypoglycemia Simple Syrup 30 ml 11/08/21 11:09 Simple Syrup 15 Ml FEEDTUBE PRN PRN Hypoglycemia Sodium Bicarbonate 325 mg 11/08/21 11:09 Sodium Bicarbonate 325 Mg Tab FEEDTUBE PRN PRN For Clogged Feeding Tube Sodium Chloride 10 ml 11/04/21 10:00 12/18/21 10:04 Sodium Chloride 0.9% 10 Ml Flush Syringe IV 10 ml BID YOSSI Administration Sodium Chloride 10 ml 11/04/21 02:03 Sodium Chloride 0.9% 10 Ml Flush Syringe IV PRN PRN LINE FLUSH Sucralfate 1 gm 11/18/21 16:30 12/18/21 08:30 Sucralfate 1 Gm/10 Ml Oral Liqd PO 1 gm ACHS YOSSI Administration Trazodone HCl 50 mg 12/04/21 22:00 12/17/21 21:21 Trazodone 50 Mg Tab PO 50 mg QHS YOSSI Administration Nutrition/Malnutrition Assess - Dietary Evaluation Nutrition/Malnutrition Findings: Nutrition Notes Start: 11/04/21 17:16 Freq: Status: Active Protocol: Document 12/15/21 15:12 ISABELL (Rec: 12/15/21 15:41 ISABELL [id number]) Nutrition Notes Initial or Follow up Reassessment Current Diagnosis Diabetes,Sepsis,Hypertension, Heart Failure,Respiratory Failure Other Pertinent Diagnosis Bilateral Pneumonia, L-Pleural Effusion, Pulmonary HTN, HFrEF, GI Bleed. Current Diet TF-Vital AF 1.2 @ 40 ml/hr ( since 11/30) Labs/Tests 12/15: Na 134, Cl 95.7, BUN 28 , Glu 129, Ca 8.2. Pertinent Medications 12/15: Levothyroxine, others nutritionally unremarkable. Height 5 ft Weight 62.4 kg [place] Body Weight (kg) 45.45 BMI 26.9 Weight change and time frame No body weight change reported in 1 month. Weight Status Appropriate Subjective/Other Information RD consult for routine TF tolerance. TF continues as prescribed, well tolerated, no gastric residues, according to RN notes. Pt continues on Mechanical Ventilation. Pt is having difficulties for discharge, due to LTAC refusing transfer at the time. Percent of energy/protein needs met: Prescribed Vital AF 1.2 Tamir @ 40 ml/hr provides for energy/ protein needs (1,150 Kcal/72 g ) during LOS, 95% Kcal; 96% AA . Burn Absent Trauma Absent GI Symptoms Other Difficulty In Swallowing,Chewing Skin Integrity/Comment Lower Extremities Pressure Ulcer. Current % PO Other Minimum of two criteria No #1 Nutrition Diagnosis Inadequate oral intake Diagnosis Progress(for reassessment Continues documentation) Is patient on ventilator? Yes Is Patient Ambulatory and/or Out of Bed No REE-([facility]-confined to bed) 1207.824 Calculation Used for Recommendations [facility] Additional Notes Protein: 1.2-2 g/Kg; 75-125 g/ day. Fluids: 1 ml/Kcal, or as per MD. Nutrition Intervention Nutrition Support: Continue Vital AF 1.2 Tamir @ 40 ml/hr. Flush: 65 ml water Q 4 hr, or as per MD. Kcal 1,150 Protein (gm) 72 Carbohydrates (gm) 106 Fat (gm) 52 Fluid (mL) 779 Fiber (gm) 5 % RDI: 95% Kcal; 96% AA. Goal #1 Provide at least 75% of energy /protein needs through Enteral Feeding during LOS. Goal #2 Maintain body weight within +/ -3% of admission body weight during LOS. Follow-Up By: 12/22/21 Additional Comments Continue monitoring TF tolerance and BM. <LEAH ALFONSO E - Last Filed: 12/19/21 09:32> Assessment and Plan Assessment and plan: I saw and evaluated the patient. I agree with the findings and the plan of care as documented in the Nurse Practitioner's~note, with the following corrections and additions. Hospitalist Physical - Constitutional Vitals: Temp Pulse Resp BP Pulse Ox 97.6 F 95 H 17 145/75 95 12/19/21 04:00 12/19/21 08:00 12/19/21 08:00 12/19/21 08:00 12/19/21 08:00 HEART Score - HEART Score Troponin: Troponin T 0.045 ng/mL (0.00-0.029) H 11/29/21 20:15 Results - Labs CBC & Chem 7: 12/19/21 04:41 12/19/21 04:41 Labs: Laboratory Last Values WBC 16.0 K/mm3 (4.5-11.0) H 12/19/21 04:41 RBC 3.45 M/mm3 (3.65-5.03) L 12/19/21 04:41 Hgb 9.7 gm/dl (10.1-14.3) L 12/19/21 04:41 Hct 29.1 % (30.3-42.9) L 12/19/21 04:41 MCV 84 fl (79-97) 12/19/21 04:41 MCH 28 pg (28-32) 12/19/21 04:41 MCHC 33 % (30-34) 12/19/21 04:41 RDW 17.8 % (13.2-15.2) H 12/19/21 04:41 Plt Count 230 K/mm3 (140-440) 12/19/21 04:41 Add Manual Diff Complete 11/16/21 15:25 Total Counted 100 11/16/21 15:25 Seg Neutrophils % [place] 11/06/21 15:50 Seg Neuts % (Manual) 87.0 % (40.0-70.0) H 11/16/21 15:25 Band Neutrophils % 0 % 11/16/21 15:25 Lymphocytes % (Manual) 8.0 % (13.4-35.0) L 11/16/21 15:25 Reactive Lymphs % (Man) 0 % 11/16/21 15:25 Monocytes % (Manual) 5.0 % (0.0-7.3) 11/16/21 15:25 Eosinophils % (Manual) 0 % (0.0-4.3) 11/16/21 15:25 Basophils % (Manual) 0 % (0.0-1.8) 11/16/21 15:25 Metamyelocytes % 0 % 11/16/21 15:25 Myelocytes % 0 % 11/16/21 15:25 Promyelocytes % 0 % 11/16/21 15:25 Blast Cells % 0 % 11/16/21 15:25 Nucleated RBC % Not Reportable 11/16/21 15:25 Seg Neutrophils # Man 15.0 K/mm3 (1.8-7.7) H 11/16/21 15:25 Band Neutrophils # 0.0 K/mm3 11/16/21 15:25 Lymphocytes # (Manual) 1.4 K/mm3 (1.2-5.4) 11/16/21 15:25 Abs React Lymphs (Man) 0.0 K/mm3 11/16/21 15:25 Monocytes # (Manual) 0.9 K/mm3 (0.0-0.8) H 11/16/21 15:25 Eosinophils # (Manual) 0.0 K/mm3 (0.0-0.4) 11/16/21 15:25 Basophils # (Manual) 0.0 K/mm3 (0.0-0.1) 11/16/21 15:25 Metamyelocytes # 0.0 K/mm3 11/16/21 15:25 Myelocytes # 0.0 K/mm3 11/16/21 15:25 Promyelocytes # 0.0 K/mm3 11/16/21 15:25 Blast Cells # 0.0 K/mm3 11/16/21 15:25 WBC Morphology Not Reportable 11/16/21 15:25 Hypersegmented Neuts Not Reportable 11/16/21 15:25 Hyposegmented Neuts Not Reportable 11/16/21 15:25 Hypogranular Neuts Not Reportable 11/16/21 15:25 Smudge Cells Not Reportable 11/16/21 15:25 Toxic Granulation Not Reportable 11/16/21 15:25 Toxic Vacuolation Not Reportable 11/16/21 15:25 Dohle Bodies Not Reportable 11/16/21 15:25 Pelger-Huet Anomaly Not Reportable 11/16/21 15:25 Irina Rods Not Reportable 11/16/21 15:25 Platelet Estimate Consistent w auto 11/16/21 15:25 Clumped Platelets Rare 11/16/21 15:25 Plt Clumps, EDTA Not Reportable 11/16/21 15:25 Large Platelets Not Reportable 11/16/21 15:25 Giant Platelets Not Reportable 11/16/21 15:25 Platelet Satelliting Not Reportable 11/16/21 15:25 Plt Morphology Comment Not Reportable 11/16/21 15:25 RBC Morphology Not Reportable 11/16/21 15:25 Dimorphic RBCs Not Reportable 11/16/21 15:25 Polychromasia Not Reportable 11/16/21 15:25 Hypochromasia 2+ 11/16/21 15:25 Poikilocytosis Not Reportable 11/16/21 15:25 Anisocytosis 2+ 11/16/21 15:25 Microcytosis Not Reportable 11/16/21 15:25 Macrocytosis Not Reportable 11/16/21 15:25 Spherocytes Not Reportable 11/16/21 15:25 Pappenheimer Bodies Not Reportable 11/16/21 15:25 Sickle Cells Not Reportable 11/16/21 15:25 Target Cells 2+ 11/16/21 15:25 Tear Drop Cells Not Reportable 11/16/21 15:25 Ovalocytes Not Reportable 11/16/21 15:25 Helmet Cells Not Reportable 11/16/21 15:25 [place] Bodies Not Reportable 11/16/21 15:25 Oblong Rings Not Reportable 11/16/21 15:25 Malcom Cells Not Reportable 11/16/21 15:25 Bite Cells Not Reportable 11/16/21 15:25 Crenated Cell Not Reportable 11/16/21 15:25 Elliptocytes Not Reportable 11/16/21 15:25 Acanthocytes (Spur) Not Reportable 11/16/21 15:25 Rouleaux Not Reportable 11/16/21 15:25 Hemoglobin C Crystals Not Reportable 11/16/21 15:25 Schistocytes Not Reportable 11/16/21 15:25 Malaria parasites Not Reportable 11/16/21 15:25 Godfrey Bodies Not Reportable 11/16/21 15:25 Hem Pathologist Commnt No 11/16/21 15:25 PT 16.9 Sec. (12.2-14.9) H 11/26/21 05:00 INR 1.24 (0.87-1.13) H 11/26/21 05:00 APTT 29.2 Sec. (24.2-36.6) 11/26/21 05:00 D-Dimer 2655.00 ng/mlDDU (0-234) H 11/11/21 04:28 ABG pH 7.479 pH Units (7.350-7.450) H 12/16/21 20:52 ABG pCO2 37.5 mm Hg 12/16/21 20:52 ABG pO2 79.3 mm Hg (80.0-90.0) L 12/16/21 20:52 ABG HCO3 27.3 mmol/L (20.0-26.0) H 12/16/21 20:52 ABG O2 Saturation 97.0 % (95.0-99.0) 12/16/21 20:52 ABG O2 Content 12.3 (0.0-44) 12/16/21 20:52 ABG Base Excess 3.6 mmol/L (-2.0-3.0) H 12/16/21 20:52 ABG Hemoglobin 9.1 gm/dl (12.0-16.0) L 12/16/21 20:52 ABG Carboxyhemoglobin 1.6 % (0.0-5.0) 12/16/21 20:52 ABG Methemoglobin 0.5 % (0.0-1.5) 12/16/21 20:52 Oxyhemoglobin 94.9 % (95.0-99.0) L 12/16/21 20:52 FiO2 30 % 12/16/21 20:52 Sodium 133 mmol/L (137-145) L 12/19/21 04:41 Potassium 4.6 mmol/L (3.6-5.0) 12/19/21 04:41 Chloride 97.9 mmol/L (98-107) L 12/19/21 04:41 Carbon Dioxide 24 mmol/L (22-30) 12/19/21 04:41 Anion Gap 16 mmol/L 12/19/21 04:41 BUN 36 mg/dL (7-17) H 12/19/21 04:41 Creatinine 0.5 mg/dL (0.6-1.2) L 12/19/21 04:41 Estimated GFR > 60 ml/min 12/19/21 04:41 BUN/Creatinine Ratio 72 % 12/19/21 04:41 Glucose 126 mg/dL (65-100) H 12/19/21 04:41 POC Glucose 119 mg/dL (70-105) H 12/19/21 05:26 Lactic Acid 3.70 mmol/L (0.7-2.0) H* 11/03/21 22:32 Calcium 8.3 mg/dL (8.4-10.2) L 12/19/21 04:41 Phosphorus 2.90 mg/dL (2.5-4.5) 12/18/21 05:04 Magnesium 2.10 mg/dL (1.7-2.3) 12/18/21 05:04 Ferritin 52.6 ng/mL (10.0-200.0) 11/05/21 06:11 Total Bilirubin 0.50 mg/dL (0.1-1.2) 11/17/21 05:56 Direct Bilirubin < 0.2 mg/dL (0-0.2) 11/11/21 04:28 Indirect Bilirubin 0.1 mg/dL 11/11/21 04:28 AST 36 units/L (5-40) 11/17/21 05:56 ALT 47 units/L (7-56) 11/17/21 05:56 Alkaline Phosphatase 107 units/L (35-129) 11/17/21 05:56 Ammonia 42.0 umol/L (25-60) 11/10/21 14:08 Lactate Dehydrogenase 187 units/L (91-180) H 11/05/21 06:11 Troponin T 0.045 ng/mL (0.00-0.029) H 11/29/21 20:15 C-Reactive Protein 22.20 mg/dL (0.00-1.30) H 11/05/21 06:11 NT-Pro-B Natriuret Pep 7895 pg/mL (0-900) H 11/03/21 22:32 Total Protein 5.1 g/dL (6.3-8.2) L 11/17/21 05:56 Albumin 2.2 g/dL (3.9-5) L 11/17/21 05:56 Albumin/Globulin Ratio 0.8 % 11/17/21 05:56 Triglycerides 59 mg/dL (2-149) 11/29/21 20:15 Cholesterol 74 mg/dL (50-199) 11/29/21 20:15 LDL Cholesterol Direct 25 mg/dL (50-130) L 11/29/21 20:15 HDL Cholesterol 41 mg/dL (40-59) 11/29/21 20:15 Cholesterol/HDL Ratio 1.80 % 11/29/21 20:15 Vitamin B12 1823 pg/mL (211-911) H 11/10/21 14:08 TSH 1.510 mlU/mL (0.270-4.200) 11/10/21 14:08 Urine Color Yellow (Yellow) 11/11/21 09:00 Urine Turbidity Slightly-cloudy (Clear) 11/11/21 09:00 Urine pH 5.0 (5.0-7.0) 11/11/21 09:00 Ur Specific [place] 1.009 (1.003-1.030) 11/11/21 09:00 Urine Protein <15 mg/dl mg/dL (Negative) 11/11/21 09:00 Urine Glucose (UA) Neg mg/dL (Negative) 11/11/21 09:00 Urine Ketones Neg mg/dL (Negative) 11/11/21 09:00 Urine Blood Mod (Negative) 11/11/21 09:00 Urine Nitrite Neg (Negative) 11/11/21 09:00 Urine Bilirubin Neg (Negative) 11/11/21 09:00 Urine Urobilinogen < 2.0 mg/dL (<2.0) 11/11/21 09:00 Ur Leukocyte Esterase Neg (Negative) 11/11/21 09:00 Urine WBC (Auto) < 1.0 /HPF (0.0-6.0) 11/11/21 09:00 Urine RBC (Auto) < 1.0 /HPF (0.0-6.0) 11/11/21 09:00 Coronavirus (PCR) Negative (Negative) 11/10/21 08:30 Blood Type O POSITIVE 12/14/21 10:30 Antibody Screen Negative 12/14/21 10:30 Crossmatch See Detail 12/14/21 10:30 Microbiology: Microbiology 12/16/21 14:53 Peripheral/Venous Blood Culture - Preliminary Staphylococcus Aureus 12/16/21 15:09 Peripheral/Venous Blood Culture - Preliminary Staphylococcus Aureus Gamble/IV: Voiding Method Indwelling Catheter Active Medications - Current Medications Current Medications: Generic Name Dose Route Start Last Admin Trade Name Freq PRN Reason Stop Dose Admin Acetaminophen 650 mg 12/14/21 04:12 12/16/21 13:34 Acetaminophen 325 Mg/10.15 Ml Oral Liqd Unit Dose FEEDTUBE 650 mg Q6H PRN Administration Non Cardiac Pain or Temp>100.5 Hydrocodone Bitart/Acetaminophen 1 each 11/21/21 10:00 12/19/21 07:45 Hydrocodone/Acetaminophen 10-325mg Tab FEEDTUBE 1 each TID YOSSI Administration Alprazolam 0.25 mg 12/14/21 09:00 12/19/21 07:45 Alprazolam 0.25 Mg Tab PO 0.25 mg Q8H PRN Administration Agitation Lipase/Protease/Amylase 1 each 11/08/21 11:09 Lipase 10,500/Protease 25,000/Amylase 43,750 (Units) Dr Lema FEEDTUBE PRN PRN For Clogged Feeding Tube Buspirone HCl 7.5 mg 11/17/21 22:00 12/18/21 21:22 Buspirone 5 Mg Tab PO 7.5 mg BID YOSSI Administration Dextrose 0 ml 11/10/21 10:52 11/21/21 16:27 Dextrose 10% *Hypoglycemia IV 50 ml PRN PRN Administration Hypoglycemia Docusate Sodium 100 mg 12/04/21 11:00 12/18/21 21:32 Docusate Sodium 100 Mg/10 Ml Oral Liqd PO Not Given BID YOSSI Furosemide 20 mg 12/09/21 10:00 12/18/21 10:01 Furosemide 20 Mg Tab PO 20 mg QDAY YOSSI Administration Gabapentin 100 mg 12/01/21 10:00 12/18/21 10:00 Gabapentin 100 Mg Cap PO 100 mg QDAY YOSSI Administration Hydromorphone HCl 0.5 mg 12/08/21 20:06 12/17/21 19:20 Hydromorphone 1 Mg/1 Ml Inj IV 0.5 mg Q3H PRN Administration Pain, Moderate (4-6) Hydrophilic Ointment 1 applic 11/06/21 04:02 Lip Therapy Vaseline TP Q2HR PRN Dry Lips Cefepime HCl 2 gm in 100 mls @ 200 mls/hr 12/16/21 14:00 12/19/21 05:16 Cefepime/Ns 2 Gm/100 Ml IV 200 mls/hr Q12H YOSSI Administration Protocol Vancomycin HCl 1 gm in 250 mls @ 166.667 mls/hr 12/16/21 14:00 12/18/21 16:30 Vancomycin/Ns 1 Gm/250 Ml IV Infused Q24H [facility] Infusion Protocol Lansoprazole 30 mg 11/24/21 22:00 12/18/21 21:23 Lansoprazole 30 Mg Solutab FEEDTUBE 30 mg BID YOSSI Administration Levothyroxine Sodium 125 mcg 11/05/21 07:00 12/19/21 05:35 Levothyroxine 125 Mcg Tab PO 125 mcg DAILY@0600 [facility] Administration Melatonin 5 mg 12/05/21 22:00 12/18/21 21:23 Melatonin 5 Mg Tab PO 5 mg QHS [facility] Administration Metoprolol Tartrate 6.25 mg 12/08/21 22:52 12/18/21 21:38 Metoprolol Tartrate 25 Mg Tab PO 6.25 mg BID YOSSI Administration Midodrine 5 mg 12/16/21 20:00 12/18/21 19:37 Midodrine 5 Mg Tab PO 5 mg 08 [facility] Administration Multi-Ingred Cream/Lotion/Oil/Oint 1 applic 11/06/21 04:02 Mineral Oil/Petrolatum, White Ophth Oint 3.5 Gm OU Q4HR PRN Dry Eye(s) Nitroglycerin 0.4 mg 11/30/21 11:36 Nitroglycerin 0.4 Mg Tab Subl SL .Q5MIN PRN Chest Pain Ondansetron HCl 4 mg 12/05/21 10:00 12/08/21 05:17 Ondansetron 4 Mg/2 Ml Inj IV 4 mg Q8H PRN Administration Nausea And Vomiting Polyethylene Glycol 17 gm 12/02/21 10:00 12/18/21 15:13 Polyethylene Glycol 3350 17 Gm Powder PO Not Given QDAY [facility] Pravastatin Sodium 20 mg 11/18/21 22:00 12/18/21 21:23 Pravastatin 20 Mg Tab PO 20 mg QHS [facility] Administration Quetiapine Fumarate 50 mg 12/01/21 22:00 12/18/21 21:22 Quetiapine 25 Mg Tab PO 50 mg QHS [facility] Administration Simple Syrup 15 ml 11/08/21 11:09 Simple Syrup 15 Ml FEEDTUBE PRN PRN Hypoglycemia Simple Syrup 30 ml 11/08/21 11:09 Simple Syrup 15 Ml FEEDTUBE PRN PRN Hypoglycemia Sodium Bicarbonate 325 mg 11/08/21 11:09 Sodium Bicarbonate 325 Mg Tab FEEDTUBE PRN PRN For Clogged Feeding Tube Sodium Chloride 10 ml 11/04/21 10:00 12/18/21 21:24 Sodium Chloride 0.9% 10 Ml Flush Syringe IV 10 ml BID YOSSI Administration Sodium Chloride 10 ml 11/04/21 02:03 Sodium Chloride 0.9% 10 Ml Flush Syringe IV PRN PRN LINE FLUSH Sucralfate 1 gm 11/18/21 16:30 12/19/21 07:45 Sucralfate 1 Gm/10 Ml Oral Liqd PO 1 gm ACHS YOSSI Administration Trazodone HCl 50 mg 12/04/21 22:00 12/18/21 21:23 Trazodone 50 Mg Tab PO 50 mg QHS YOSSI Administration Nutrition/Malnutrition Assess - Dietary Evaluation Nutrition/Malnutrition Findings: Nutrition Notes Start: 11/04/21 17:16 Freq: Status: Active Protocol: Document 12/15/21 15:12 ISABELL (Rec: 12/15/21 15:41 ISABELL [id number]) Nutrition Notes Initial or Follow up Reassessment Current Diagnosis Diabetes,Sepsis,Hypertension, Heart Failure,Respiratory Failure Other Pertinent Diagnosis Bilateral Pneumonia, L-Pleural Effusion, Pulmonary HTN, HFrEF, GI Bleed. Current Diet TF-Vital AF 1.2 @ 40 ml/hr ( since 11/30) Labs/Tests 12/15: Na 134, Cl 95.7, BUN 28 , Glu 129, Ca 8.2. Pertinent Medications 12/15: Levothyroxine, others nutritionally unremarkable. Height 5 ft Weight 62.4 kg [place] Body Weight (kg) 45.45 BMI 26.9 Weight change and time frame No body weight change reported in 1 month. Weight Status Appropriate Subjective/Other Information RD consult for routine TF tolerance. TF continues as prescribed, well tolerated, no gastric residues, according to RN notes. Pt continues on Mechanical Ventilation. Pt is having difficulties for discharge, due to LTAC refusing transfer at the time. Percent of energy/protein needs met: Prescribed Vital AF 1.2 Tamir @ 40 ml/hr provides for energy/ protein needs (1,150 Kcal/72 g ) during LOS, 95% Kcal; 96% AA . Burn Absent Trauma Absent GI Symptoms Other Difficulty In Swallowing,Chewing Skin Integrity/Comment Lower Extremities Pressure Ulcer. Current % PO Other Minimum of two criteria No #1 Nutrition Diagnosis Inadequate oral intake Diagnosis Progress(for reassessment Continues documentation) Is patient on ventilator? Yes Is Patient Ambulatory and/or Out of Bed No REE-([facility]-confined to bed) 1207.824 Calculation Used for Recommendations [facility] Additional Notes Protein: 1.2-2 g/Kg; 75-125 g/ day. Fluids: 1 ml/Kcal, or as per MD. Nutrition Intervention Nutrition Support: Continue Vital AF 1.2 Tamir @ 40 ml/hr. Flush: 65 ml water Q 4 hr, or as per MD. Kcal 1,150 Protein (gm) 72 Carbohydrates (gm) 106 Fat (gm) 52 Fluid (mL) 779 Fiber (gm) 5 % RDI: 95% Kcal; 96% AA. Goal #1 Provide at least 75% of energy /protein needs through Enteral Feeding during LOS. Goal #2 Maintain body weight within +/ -3% of admission body weight during LOS. Follow-Up By: 12/22/21 Additional Comments Continue monitoring TF tolerance and BM.
--- NOTE | 2021-12-18 13:29 | Progress Note ---
Assessment and Plan Gram positive Bacteremia Acute respiratory failure with hypoxia, now on MVS Acute microcytic anemia Bilateral pneumonia DVT Left pleural effusion Cardiomyopathy EF 30-35% Moderate pulmonary HTN RVSP 49e - repeat BC's in am - continue Cefepime and Vancomycin - continue daily SAT and SBT assessment as tolerated - LTAC evaluation ongoing - no new issues otherwise, continue care as below; - continue gentle diuresis - continue Midodrine - prn Levophed for target MAP > 65 mmHg - continue to wean supplemental oxygen for target O2 sat's > 90% acutely - VAP bundle addressed - continue lung protective strategies - continue bronchodilators with routine trach care and pulmonary hygiene per RT - wean per pulmonary driven protocols otherwise - avoid nephrotoxins, renally dose all medications - continue accuchecks with glycemic control per SSI (While critically ill target blood glucose of 140-180 mg/dL; avoid hypoglycemia) - sedation prn for target RASS 0 to -1 - antibiotics per ID recommendations - continue to avoid benzodiazepine's, reduce the possibility of delirium - prn analgesia per CPOT score - Maintenance of sleep-wake cycle, avoid delirium - continue enteral nutritional support at goal rate as tolerated - G.I. & VTE prophylaxis - PT/OT/ROM exercises - continue mobility protocols for pressure ulcer prophylaxis - Monitor hemodynamics closely - continue other care per attending / other consultants - discharge planning ongoing concurrently COVID SPECIFIC INTERVENTIONS - COVID-19 PCR negative .... Re-evaluate in am & prn CONDITION: CRITICAL PROGNOSIS: GUARDED CODE STATUS: FULL CODE The high probability of a clinically significant, sudden or life-threatening deterioration of the [respiratory, cardiovascular & neurologic] system(s) required my full and direct attention, intervention and personal management. The aggregate critical care time was [33] minutes without overlap. Time includes spent on; [x] Data Review and interpretation [x] Patient assessment and monitoring of vital signs [x] Documentation [x] Medication orders and management Subjective Date of service: 12/18/21 Principal diagnosis: Septic shock; AHRF; Anemia; Pneumonia; pleural effusion; HFrEF; Pulm HTN Interval history: Severe Sepsis POA vs septic shock- 11/03/2021 blood culture: Patient is seen today for: Septic shock; Acute hypoxemic respiratory failure; Anemia; Bilateral pneumonia; Left pleural effusion; HFrEF 30-35%; Pulm HTN RVSP 49 Seen and examined at bedside; 24hour events reviewed; nursing and respiratory care staff consulted; no adverse overnight events reported to me; resting in bed; remains a difficult wean; No N/V/F/C Objective Vital Signs - 12hr 12/18/21 12/18/21 12/18/21 02:00 03:00 04:00 Temperature 98.5 F Pulse Rate 71 72 82 Pulse Rate [ 82 From Monitor] Respiratory 15 15 18 Rate Blood Pressure 109/50 115/50 O2 Sat by Pulse 99 98 99 Oximetry 12/18/21 12/18/21 12/18/21 04:01 04:08 05:00 Temperature Pulse Rate 86 71 88 Pulse Rate [ From Monitor] Respiratory 24 6 L 17 Rate Blood Pressure 142/63 109/50 149/73 O2 Sat by Pulse 97 99 97 Oximetry 12/18/21 12/18/21 12/18/21 06:00 07:01 07:19 Temperature 98.1 F Pulse Rate 77 87 Pulse Rate [ From Monitor] Respiratory 23 22 Rate Blood Pressure 124/59 141/76 O2 Sat by Pulse 98 98 Oximetry 12/18/21 12/18/21 12/18/21 08:00 09:00 10:01 Temperature Pulse Rate 91 H 78 83 Pulse Rate [ 77 From Monitor] Respiratory 18 16 18 Rate Blood Pressure 145/67 138/62 137/114 O2 Sat by Pulse 99 98 97 Oximetry 12/18/21 12/18/21 12/18/21 10:30 11:00 11:01 Temperature Pulse Rate 78 78 72 Pulse Rate [ From Monitor] Respiratory 2 L 16 Rate Blood Pressure 138/62 138/62 119/48 O2 Sat by Pulse 98 97 98 Oximetry 12/18/21 12/18/21 12/18/21 11:14 12:00 12:01 Temperature 98.7 F 98.7 F Pulse Rate 75 73 Pulse Rate [ 77 From Monitor] Respiratory 17 24 Rate Blood Pressure 119/48 O2 Sat by Pulse 99 97 Oximetry 12/18/21 13:00 Temperature Pulse Rate 64 Pulse Rate [ From Monitor] Respiratory 27 H Rate Blood Pressure 117/52 O2 Sat by Pulse 98 Oximetry Constitutional: alert, appears uncomfortable (restless really), other (trach to MVS, frail elderly woman with mildly increased respiratory effort at rest) Eyes: non-icteric ENT: oropharynx moist, other (+ Midline tracheostomy with minimal secretions) Neck: supple, no lymphadenopathy, no JVD Effort: mildly labored Ascultation: Bilateral: diminished breath sounds, rhonchi Percussion: Bilateral: not dull Cardiovascular: regular rate and rhythm, other (S1,S2) Gastrointestinal: normoactive bowel sounds, soft, non-tender, non-distended (protuberant) Integumentary: normal Extremities: no cyanosis, pink and warm, pulses normal, edema (upper etremities) Neurologic: normal mental status, non-focal exam (grossly), pupils equal and round, motor strength normal and Psychiatric: mood appropriate CBC and BMP: 12/19/21 04:41 12/19/21 04:41 ABG, PT/INR, D-dimer: ABG ABG pH 7.479 pH Units (7.350-7.450) H 12/16/21 20:52 ABG pCO2 37.5 mm Hg 12/16/21 20:52 ABG pO2 79.3 mm Hg (80.0-90.0) L 12/16/21 20:52 ABG O2 Saturation 97.0 % (95.0-99.0) 12/16/21 20:52 PT/INR, D-dimer PT 16.9 Sec. (12.2-14.9) H 11/26/21 05:00 INR 1.24 (0.87-1.13) H 11/26/21 05:00 D-Dimer 2655.00 ng/mlDDU (0-234) H 11/11/21 04:28 Abnormal lab findings: Abnormal Labs 11/03/21 11/03/21 11/03/21 22:32 22:32 22:32 WBC 29.3 H RBC 2.93 L Hgb 6.1 L Hct 21.9 L MCV 75 L MCH 21 L MCHC 28 L RDW 19.7 H Plt Count Seg Neuts % (Manual) 97.0 H Lymphocytes % (Manual) 3.0 L Seg Neutrophils # Man 28.4 H Lymphocytes # (Manual) 0.9 L Monocytes # (Manual) PT 18.6 H INR 1.40 H D-Dimer ABG pH ABG pO2 ABG HCO3 ABG O2 Saturation ABG Base Excess ABG Hemoglobin Oxyhemoglobin Sodium Potassium Chloride Carbon Dioxide 20 L BUN 33 H Creatinine Glucose 119 H POC Glucose Lactic Acid Calcium 8.3 L Phosphorus Magnesium AST ALT Alkaline Phosphatase Lactate Dehydrogenase Troponin T 0.035 H C-Reactive Protein NT-Pro-B Natriuret Pep Total Protein Albumin LDL Cholesterol Direct 34 L Vitamin B12 Crossmatch 11/03/21 11/03/21 11/03/21 22:32 22:32 23:57 WBC RBC Hgb Hct MCV MCH MCHC RDW Plt Count Seg Neuts % (Manual) Lymphocytes % (Manual) Seg Neutrophils # Man Lymphocytes # (Manual) Monocytes # (Manual) PT INR D-Dimer ABG pH ABG pO2 ABG HCO3 ABG O2 Saturation ABG Base Excess ABG Hemoglobin Oxyhemoglobin Sodium Potassium Chloride Carbon Dioxide BUN Creatinine Glucose POC Glucose Lactic Acid 3.70 H* Calcium Phosphorus Magnesium AST ALT Alkaline Phosphatase 139 H Lactate Dehydrogenase Troponin T C-Reactive Protein NT-Pro-B Natriuret Pep 7895 H Total Protein Albumin 3.5 L LDL Cholesterol Direct Vitamin B12 Crossmatch See Detail 11/04/21 11/04/21 11/05/21 00:59 13:58 00:51 WBC 27.9 H RBC 3.28 L Hgb 7.3 L Hct 25.5 L MCV 78 L MCH 22 L MCHC 29 L RDW 19.1 H Plt Count Seg Neuts % (Manual) 96.0 H Lymphocytes % (Manual) 2.0 L Seg Neutrophils # Man 26.8 H Lymphocytes # (Manual) 0.6 L Monocytes # (Manual) PT INR D-Dimer ABG pH ABG pO2 ABG HCO3 ABG O2 Saturation ABG Base Excess ABG Hemoglobin Oxyhemoglobin Sodium Potassium Chloride Carbon Dioxide BUN Creatinine Glucose POC Glucose Lactic Acid Calcium Phosphorus Magnesium AST ALT Alkaline Phosphatase Lactate Dehydrogenase Troponin T 0.051 H D 0.032 H D C-Reactive Protein NT-Pro-B Natriuret Pep Total Protein Albumin LDL Cholesterol Direct Vitamin B12 Crossmatch 11/05/21 11/05/21 11/05/21 06:11 06:11 06:11 WBC 31.8 H RBC 3.57 L Hgb 8.0 L Hct 27.7 L MCV 78 L MCH 22 L MCHC 29 L RDW 19.2 H Plt Count Seg Neuts % (Manual) 91.0 H Lymphocytes % (Manual) 4.5 L Seg Neutrophils # Man 28.9 H Lymphocytes # (Manual) Monocytes # (Manual) 1.1 H PT INR D-Dimer 1494.53 H ABG pH ABG pO2 ABG HCO3 ABG O2 Saturation ABG Base Excess ABG Hemoglobin Oxyhemoglobin Sodium Potassium Chloride Carbon Dioxide 19 L BUN 42 H Creatinine Glucose 115 H POC Glucose Lactic Acid Calcium Phosphorus Magnesium AST 43 H ALT Alkaline Phosphatase Lactate Dehydrogenase 187 H Troponin T C-Reactive Protein 22.20 H NT-Pro-B Natriuret Pep Total Protein 6.0 L Albumin 3.2 L LDL Cholesterol Direct Vitamin B12 Crossmatch 11/05/21 11/05/21 11/06/21 06:11 12:15 00:30 WBC RBC Hgb Hct MCV MCH MCHC RDW Plt Count Seg Neuts % (Manual) Lymphocytes % (Manual) Seg Neutrophils # Man Lymphocytes # (Manual) Monocytes # (Manual) PT INR D-Dimer ABG pH ABG pO2 ABG HCO3 ABG O2 Saturation ABG Base Excess ABG Hemoglobin Oxyhemoglobin Sodium Potassium Chloride Carbon Dioxide BUN Creatinine Glucose POC Glucose 113 H 69 L Lactic Acid Calcium Phosphorus Magnesium AST ALT Alkaline Phosphatase Lactate Dehydrogenase Troponin T 0.033 H C-Reactive Protein NT-Pro-B Natriuret Pep Total Protein Albumin LDL Cholesterol Direct Vitamin B12 Crossmatch 11/06/21 11/06/21 11/06/21 05:50 15:50 15:50 WBC 25.5 H RBC 3.62 L Hgb 8.0 L Hct 27.5 L MCV 76 L MCH 22 L MCHC 29 L RDW 19.6 H Plt Count Seg Neuts % (Manual) 92.0 H Lymphocytes % (Manual) 5.0 L Seg Neutrophils # Man 23.5 H Lymphocytes # (Manual) Monocytes # (Manual) PT INR D-Dimer ABG pH 7.305 L ABG pO2 ABG HCO3 15.8 L ABG O2 Saturation ABG Base Excess -9.6 L ABG Hemoglobin 8.6 L Oxyhemoglobin 94.6 L Sodium Potassium Chloride 113.9 H Carbon Dioxide 17 L BUN 56 H Creatinine Glucose 114 H POC Glucose Lactic Acid Calcium 7.9 L Phosphorus Magnesium AST 1410 H ALT 934 H Alkaline Phosphatase 142 H Lactate Dehydrogenase Troponin T C-Reactive Protein NT-Pro-B Natriuret Pep Total Protein 5.0 L Albumin 2.6 L LDL Cholesterol Direct Vitamin B12 Crossmatch 11/07/21 11/07/21 11/07/21 03:30 04:50 08:07 WBC RBC Hgb Hct MCV MCH MCHC RDW Plt Count Seg Neuts % (Manual) Lymphocytes % (Manual) Seg Neutrophils # Man Lymphocytes # (Manual) Monocytes # (Manual) PT INR D-Dimer ABG pH ABG pO2 296.9 H ABG HCO3 18.1 L ABG O2 Saturation 99.5 H ABG Base Excess -5.9 L ABG Hemoglobin 7.6 L Oxyhemoglobin Sodium Potassium Chloride Carbon Dioxide BUN Creatinine Glucose POC Glucose 106 H 108 H Lactic Acid Calcium Phosphorus Magnesium AST ALT Alkaline Phosphatase Lactate Dehydrogenase Troponin T C-Reactive Protein NT-Pro-B Natriuret Pep Total Protein Albumin LDL Cholesterol Direct Vitamin B12 Crossmatch 11/08/21 11/08/21 11/08/21 03:10 18:05 23:43 WBC RBC Hgb Hct MCV MCH MCHC RDW Plt Count Seg Neuts % (Manual) Lymphocytes % (Manual) Seg Neutrophils # Man Lymphocytes # (Manual) Monocytes # (Manual) PT INR D-Dimer ABG pH ABG pO2 127.4 H ABG HCO3 ABG O2 Saturation ABG Base Excess -3.4 L ABG Hemoglobin 7.4 L Oxyhemoglobin Sodium Potassium Chloride Carbon Dioxide BUN Creatinine Glucose POC Glucose 113 H 141 H Lactic Acid Calcium Phosphorus Magnesium AST ALT Alkaline Phosphatase Lactate Dehydrogenase Troponin T C-Reactive Protein NT-Pro-B Natriuret Pep Total Protein Albumin LDL Cholesterol Direct Vitamin B12 Crossmatch 11/08/21 11/08/21 11/09/21 Unknown Unknown 02:00 WBC 14.5 H RBC 3.35 L Hgb 7.5 L 8.1 L Hct 25.4 L 27.6 L MCV 76 L 76 L MCH 23 L 22 L MCHC RDW 19.9 H 19.9 H Plt Count Seg Neuts % (Manual) Lymphocytes % (Manual) Seg Neutrophils # Man Lymphocytes # (Manual) Monocytes # (Manual) PT INR D-Dimer ABG pH ABG pO2 ABG HCO3 ABG O2 Saturation ABG Base Excess ABG Hemoglobin Oxyhemoglobin Sodium 154 H D Potassium 3.3 L Chloride 120.7 H Carbon Dioxide 20 L BUN 38 H Creatinine Glucose POC Glucose Lactic Acid Calcium 8.3 L Phosphorus Magnesium AST ALT Alkaline Phosphatase Lactate Dehydrogenase Troponin T C-Reactive Protein NT-Pro-B Natriuret Pep Total Protein Albumin LDL Cholesterol Direct Vitamin B12 Crossmatch 11/09/21 11/09/21 11/09/21 02:00 02:31 05:12 WBC RBC Hgb Hct MCV MCH MCHC RDW Plt Count Seg Neuts % (Manual) Lymphocytes % (Manual) Seg Neutrophils # Man Lymphocytes # (Manual) Monocytes # (Manual) PT INR D-Dimer ABG pH 7.479 H ABG pO2 121.3 H ABG HCO3 ABG O2 Saturation ABG Base Excess ABG Hemoglobin 7.3 L Oxyhemoglobin Sodium Potassium Chloride 112.5 H Carbon Dioxide BUN 33 H Creatinine Glucose 161 H POC Glucose 135 H Lactic Acid Calcium Phosphorus Magnesium AST 251 H ALT 481 H Alkaline Phosphatase Lactate Dehydrogenase Troponin T C-Reactive Protein NT-Pro-B Natriuret Pep Total Protein 5.0 L Albumin 2.8 L LDL Cholesterol Direct Vitamin B12 Crossmatch 11/09/21 11/09/21 11/09/21 11:33 16:32 23:28 WBC RBC Hgb Hct MCV MCH MCHC RDW Plt Count Seg Neuts % (Manual) Lymphocytes % (Manual) Seg Neutrophils # Man Lymphocytes # (Manual) Monocytes # (Manual) PT INR D-Dimer ABG pH ABG pO2 ABG HCO3 ABG O2 Saturation ABG Base Excess ABG Hemoglobin Oxyhemoglobin Sodium Potassium Chloride Carbon Dioxide BUN Creatinine Glucose POC Glucose 132 H 133 H 143 H Lactic Acid Calcium Phosphorus Magnesium AST ALT Alkaline Phosphatase Lactate Dehydrogenase Troponin T C-Reactive Protein NT-Pro-B Natriuret Pep Total Protein Albumin LDL Cholesterol Direct Vitamin B12 Crossmatch 11/10/21 11/10/21 11/10/21 04:00 04:00 05:35 WBC 16.0 H RBC 3.61 L Hgb 8.0 L Hct 27.1 L MCV 75 L MCH 22 L MCHC RDW 20.4 H Plt Count Seg Neuts % (Manual) Lymphocytes % (Manual) Seg Neutrophils # Man Lymphocytes # (Manual) Monocytes # (Manual) PT INR D-Dimer ABG pH ABG pO2 ABG HCO3 ABG O2 Saturation ABG Base Excess ABG Hemoglobin Oxyhemoglobin Sodium 149 H Potassium Chloride 114.1 H Carbon Dioxide BUN 31 H Creatinine Glucose 148 H POC Glucose 132 H Lactic Acid Calcium 8.2 L Phosphorus Magnesium AST ALT Alkaline Phosphatase Lactate Dehydrogenase Troponin T C-Reactive Protein NT-Pro-B Natriuret Pep Total Protein Albumin LDL Cholesterol Direct Vitamin B12 Crossmatch 11/10/21 11/10/21 11/10/21 11:31 14:08 15:35 WBC RBC Hgb Hct MCV MCH MCHC RDW Plt Count Seg Neuts % (Manual) Lymphocytes % (Manual) Seg Neutrophils # Man Lymphocytes # (Manual) Monocytes # (Manual) PT INR D-Dimer ABG pH ABG pO2 126.6 H ABG HCO3 ABG O2 Saturation ABG Base Excess ABG Hemoglobin 7.4 L Oxyhemoglobin Sodium Potassium Chloride Carbon Dioxide BUN Creatinine Glucose POC Glucose 147 H Lactic Acid Calcium Phosphorus Magnesium AST ALT Alkaline Phosphatase Lactate Dehydrogenase Troponin T C-Reactive Protein NT-Pro-B Natriuret Pep Total Protein Albumin LDL Cholesterol Direct Vitamin B12 1823 H Crossmatch 11/10/21 11/11/21 11/11/21 17:53 00:55 04:28 WBC RBC Hgb Hct MCV MCH MCHC RDW Plt Count Seg Neuts % (Manual) Lymphocytes % (Manual) Seg Neutrophils # Man Lymphocytes # (Manual) Monocytes # (Manual) PT INR D-Dimer ABG pH ABG pO2 ABG HCO3 ABG O2 Saturation ABG Base Excess ABG Hemoglobin Oxyhemoglobin Sodium 149 H Potassium Chloride 112.2 H Carbon Dioxide BUN 34 H Creatinine Glucose 148 H POC Glucose 140 H 145 H Lactic Acid Calcium 7.9 L Phosphorus Magnesium AST 53 H ALT 203 H Alkaline Phosphatase Lactate Dehydrogenase Troponin T C-Reactive Protein NT-Pro-B Natriuret Pep Total Protein 4.9 L Albumin 2.6 L LDL Cholesterol Direct Vitamin B12 Crossmatch 11/11/21 11/11/21 11/11/21 04:28 04:28 05:28 WBC 20.9 H RBC 3.47 L Hgb 7.5 L Hct 26.0 L MCV 75 L MCH 22 L MCHC 29 L RDW 21.6 H Plt Count 132 L Seg Neuts % (Manual) Lymphocytes % (Manual) Seg Neutrophils # Man Lymphocytes # (Manual) Monocytes # (Manual) PT INR D-Dimer 2655.00 H ABG pH ABG pO2 ABG HCO3 ABG O2 Saturation ABG Base Excess ABG Hemoglobin Oxyhemoglobin Sodium Potassium Chloride Carbon Dioxide BUN Creatinine Glucose POC Glucose 154 H Lactic Acid Calcium Phosphorus Magnesium AST ALT Alkaline Phosphatase Lactate Dehydrogenase Troponin T C-Reactive Protein NT-Pro-B Natriuret Pep Total Protein Albumin LDL Cholesterol Direct Vitamin B12 Crossmatch 11/11/21 11/11/21 11/12/21 12:38 18:13 00:14 WBC RBC Hgb Hct MCV MCH MCHC RDW Plt Count Seg Neuts % (Manual) Lymphocytes % (Manual) Seg Neutrophils # Man Lymphocytes # (Manual) Monocytes # (Manual) PT INR D-Dimer ABG pH ABG pO2 ABG HCO3 ABG O2 Saturation ABG Base Excess ABG Hemoglobin Oxyhemoglobin Sodium Potassium Chloride Carbon Dioxide BUN Creatinine Glucose POC Glucose 137 H 108 H 137 H Lactic Acid Calcium Phosphorus Magnesium AST ALT Alkaline Phosphatase Lactate Dehydrogenase Troponin T C-Reactive Protein NT-Pro-B Natriuret Pep Total Protein Albumin LDL Cholesterol Direct Vitamin B12 Crossmatch 11/12/21 11/12/21 11/12/21 05:40 06:24 11:12 WBC RBC Hgb Hct MCV MCH MCHC RDW Plt Count Seg Neuts % (Manual) Lymphocytes % (Manual) Seg Neutrophils # Man Lymphocytes # (Manual) Monocytes # (Manual) PT INR D-Dimer ABG pH 7.586 H ABG pO2 150.6 H ABG HCO3 27.2 H ABG O2 Saturation 99.1 H ABG Base Excess 5.2 H ABG Hemoglobin 7.5 L Oxyhemoglobin Sodium Potassium Chloride Carbon Dioxide BUN Creatinine Glucose POC Glucose 132 H 140 H Lactic Acid Calcium Phosphorus Magnesium AST ALT Alkaline Phosphatase Lactate Dehydrogenase Troponin T C-Reactive Protein NT-Pro-B Natriuret Pep Total Protein Albumin LDL Cholesterol Direct Vitamin B12 Crossmatch 11/12/21 11/12/21 11/12/21 14:50 14:50 17:13 WBC 19.8 H RBC 3.27 L Hgb 7.1 L Hct 24.5 L MCV 75 L MCH 22 L MCHC 29 L RDW 22.3 H Plt Count Seg Neuts % (Manual) Lymphocytes % (Manual) Seg Neutrophils # Man Lymphocytes # (Manual) Monocytes # (Manual) PT INR D-Dimer ABG pH ABG pO2 ABG HCO3 ABG O2 Saturation ABG Base Excess ABG Hemoglobin Oxyhemoglobin Sodium 150 H Potassium 3.3 L Chloride 112.0 H Carbon Dioxide BUN 40 H Creatinine Glucose 151 H POC Glucose 121 H Lactic Acid Calcium 7.4 L Phosphorus 1.70 L Magnesium 1.40 L AST ALT Alkaline Phosphatase Lactate Dehydrogenase Troponin T C-Reactive Protein NT-Pro-B Natriuret Pep Total Protein Albumin LDL Cholesterol Direct Vitamin B12 Crossmatch 11/12/21 11/13/21 11/13/21 23:19 05:34 06:30 WBC RBC Hgb Hct MCV MCH MCHC RDW Plt Count Seg Neuts % (Manual) Lymphocytes % (Manual) Seg Neutrophils # Man Lymphocytes # (Manual) Monocytes # (Manual) PT INR D-Dimer ABG pH ABG pO2 ABG HCO3 ABG O2 Saturation ABG Base Excess ABG Hemoglobin Oxyhemoglobin Sodium 149 H Potassium Chloride 60.0 L Carbon Dioxide BUN 40 H Creatinine Glucose 146 H POC Glucose 113 H 132 H Lactic Acid Calcium 7.3 L Phosphorus Magnesium 2.40 H AST ALT 72 H Alkaline Phosphatase Lactate Dehydrogenase Troponin T C-Reactive Protein NT-Pro-B Natriuret Pep Total Protein 5.2 L Albumin 2.2 L LDL Cholesterol Direct Vitamin B12 Crossmatch 11/13/21 11/13/21 11/13/21 06:30 08:30 11:19 WBC 21.2 H RBC 3.12 L Hgb 6.8 L Hct 23.2 L MCV 74 L MCH 22 L MCHC 29 L RDW 22.2 H Plt Count 135 L Seg Neuts % (Manual) Lymphocytes % (Manual) Seg Neutrophils # Man Lymphocytes # (Manual) Monocytes # (Manual) PT INR D-Dimer ABG pH ABG pO2 ABG HCO3 ABG O2 Saturation ABG Base Excess ABG Hemoglobin Oxyhemoglobin Sodium Potassium Chloride Carbon Dioxide BUN Creatinine Glucose POC Glucose 136 H Lactic Acid Calcium Phosphorus Magnesium AST ALT Alkaline Phosphatase Lactate Dehydrogenase Troponin T C-Reactive Protein NT-Pro-B Natriuret Pep Total Protein Albumin LDL Cholesterol Direct Vitamin B12 Crossmatch See Detail 11/13/21 11/14/21 11/14/21 18:21 00:01 04:46 WBC 20.0 H RBC 3.41 L Hgb 7.9 L Hct 26.8 L MCV MCH 23 L MCHC 29 L RDW 24.0 H Plt Count Seg Neuts % (Manual) Lymphocytes % (Manual) Seg Neutrophils # Man Lymphocytes # (Manual) Monocytes # (Manual) PT INR D-Dimer ABG pH ABG pO2 ABG HCO3 ABG O2 Saturation ABG Base Excess ABG Hemoglobin Oxyhemoglobin Sodium Potassium Chloride Carbon Dioxide BUN Creatinine Glucose POC Glucose 149 H 141 H Lactic Acid Calcium Phosphorus Magnesium AST ALT Alkaline Phosphatase Lactate Dehydrogenase Troponin T C-Reactive Protein NT-Pro-B Natriuret Pep Total Protein Albumin LDL Cholesterol Direct Vitamin B12 Crossmatch 11/14/21 11/14/21 11/14/21 04:46 05:10 11:10 WBC RBC Hgb Hct MCV MCH MCHC RDW Plt Count Seg Neuts % (Manual) Lymphocytes % (Manual) Seg Neutrophils # Man Lymphocytes # (Manual) Monocytes # (Manual) PT INR D-Dimer ABG pH ABG pO2 ABG HCO3 ABG O2 Saturation ABG Base Excess ABG Hemoglobin Oxyhemoglobin Sodium 148 H Potassium Chloride 113.1 H Carbon Dioxide BUN 43 H Creatinine Glucose 140 H POC Glucose 132 H 133 H Lactic Acid Calcium 7.5 L Phosphorus Magnesium AST ALT Alkaline Phosphatase Lactate Dehydrogenase Troponin T C-Reactive Protein NT-Pro-B Natriuret Pep Total Protein Albumin LDL Cholesterol Direct Vitamin B12 Crossmatch 11/14/21 11/14/21 11/14/21 16:14 17:48 23:23 WBC RBC Hgb Hct MCV MCH MCHC RDW Plt Count Seg Neuts % (Manual) Lymphocytes % (Manual) Seg Neutrophils # Man Lymphocytes # (Manual) Monocytes # (Manual) PT INR D-Dimer ABG pH ABG pO2 ABG HCO3 28.0 H ABG O2 Saturation ABG Base Excess 3.1 H ABG Hemoglobin 5.8 L Oxyhemoglobin 94.8 L Sodium Potassium Chloride Carbon Dioxide BUN Creatinine Glucose POC Glucose 130 H 136 H Lactic Acid Calcium Phosphorus Magnesium AST ALT Alkaline Phosphatase Lactate Dehydrogenase Troponin T C-Reactive Protein NT-Pro-B Natriuret Pep Total Protein Albumin LDL Cholesterol Direct Vitamin B12 Crossmatch 11/15/21 11/15/21 11/15/21 05:20 05:50 05:50 WBC 19.9 H RBC 3.50 L Hgb 8.2 L Hct 27.9 L MCV MCH 23 L MCHC 29 L RDW 24.9 H Plt Count Seg Neuts % (Manual) Lymphocytes % (Manual) Seg Neutrophils # Man Lymphocytes # (Manual) Monocytes # (Manual) PT INR D-Dimer ABG pH ABG pO2 ABG HCO3 ABG O2 Saturation ABG Base Excess ABG Hemoglobin Oxyhemoglobin Sodium 149 H Potassium Chloride 112.0 H Carbon Dioxide BUN 48 H Creatinine Glucose 152 H POC Glucose 137 H Lactic Acid Calcium 7.9 L Phosphorus Magnesium AST ALT Alkaline Phosphatase Lactate Dehydrogenase Troponin T C-Reactive Protein NT-Pro-B Natriuret Pep Total Protein Albumin LDL Cholesterol Direct Vitamin B12 Crossmatch 11/15/21 11/15/21 11/15/21 12:12 17:07 23:24 WBC RBC Hgb Hct MCV MCH MCHC RDW Plt Count Seg Neuts % (Manual) Lymphocytes % (Manual) Seg Neutrophils # Man Lymphocytes # (Manual) Monocytes # (Manual) PT INR D-Dimer ABG pH ABG pO2 ABG HCO3 ABG O2 Saturation ABG Base Excess ABG Hemoglobin Oxyhemoglobin Sodium Potassium Chloride Carbon Dioxide BUN Creatinine Glucose POC Glucose 114 H 135 H 123 H Lactic Acid Calcium Phosphorus Magnesium AST ALT Alkaline Phosphatase Lactate Dehydrogenase Troponin T C-Reactive Protein NT-Pro-B Natriuret Pep Total Protein Albumin LDL Cholesterol Direct Vitamin B12 Crossmatch 11/16/21 11/16/21 11/16/21 05:21 10:00 10:00 WBC 21.7 H RBC 2.57 L Hgb 6.0 L Hct 20.2 L D MCV MCH 24 L MCHC RDW 26.3 H Plt Count Seg Neuts % (Manual) Lymphocytes % (Manual) Seg Neutrophils # Man Lymphocytes # (Manual) Monocytes # (Manual) PT INR D-Dimer ABG pH ABG pO2 ABG HCO3 ABG O2 Saturation ABG Base Excess ABG Hemoglobin Oxyhemoglobin Sodium 153 H Potassium Chloride 114.9 H Carbon Dioxide BUN 74 H Creatinine Glucose 155 H POC Glucose 127 H Lactic Acid Calcium 8.1 L Phosphorus Magnesium AST ALT Alkaline Phosphatase Lactate Dehydrogenase Troponin T C-Reactive Protein NT-Pro-B Natriuret Pep Total Protein Albumin LDL Cholesterol Direct Vitamin B12 Crossmatch 11/16/21 11/16/21 11/16/21 11:34 14:00 15:25 WBC 17.2 H RBC 2.08 L Hgb 4.7 L* Hct 16.2 L* MCV 78 L MCH 23 L MCHC 29 L RDW 26.0 H Plt Count Seg Neuts % (Manual) 87.0 H Lymphocytes % (Manual) 8.0 L Seg Neutrophils # Man 15.0 H Lymphocytes # (Manual) Monocytes # (Manual) 0.9 H PT INR D-Dimer ABG pH ABG pO2 ABG HCO3 ABG O2 Saturation ABG Base Excess ABG Hemoglobin Oxyhemoglobin Sodium Potassium Chloride Carbon Dioxide BUN Creatinine Glucose POC Glucose 131 H Lactic Acid Calcium Phosphorus Magnesium AST ALT Alkaline Phosphatase Lactate Dehydrogenase Troponin T C-Reactive Protein NT-Pro-B Natriuret Pep Total Protein Albumin LDL Cholesterol Direct Vitamin B12 Crossmatch See Detail 11/16/21 11/16/21 11/16/21 15:25 17:21 22:43 WBC RBC Hgb 8.6 L D Hct 27.7 L D MCV MCH MCHC RDW Plt Count Seg Neuts % (Manual) Lymphocytes % (Manual) Seg Neutrophils # Man Lymphocytes # (Manual) Monocytes # (Manual) PT INR D-Dimer ABG pH ABG pO2 ABG HCO3 ABG O2 Saturation ABG Base Excess ABG Hemoglobin Oxyhemoglobin Sodium 148 H Potassium Chloride 113.2 H Carbon Dioxide BUN 84 H Creatinine Glucose 164 H POC Glucose 124 H Lactic Acid Calcium 7.6 L Phosphorus Magnesium AST ALT Alkaline Phosphatase Lactate Dehydrogenase Troponin T C-Reactive Protein NT-Pro-B Natriuret Pep Total Protein Albumin LDL Cholesterol Direct Vitamin B12 Crossmatch 11/16/21 11/17/21 11/17/21 23:07 05:33 05:56 WBC 25.1 H RBC 3.47 L Hgb 8.7 L Hct 28.5 L MCV MCH 25 L MCHC RDW 22.3 H Plt Count Seg Neuts % (Manual) Lymphocytes % (Manual) Seg Neutrophils # Man Lymphocytes # (Manual) Monocytes # (Manual) PT INR D-Dimer ABG pH ABG pO2 ABG HCO3 ABG O2 Saturation ABG Base Excess ABG Hemoglobin Oxyhemoglobin Sodium Potassium Chloride Carbon Dioxide BUN Creatinine Glucose POC Glucose 128 H 133 H Lactic Acid Calcium Phosphorus Magnesium AST ALT Alkaline Phosphatase Lactate Dehydrogenase Troponin T C-Reactive Protein NT-Pro-B Natriuret Pep Total Protein Albumin LDL Cholesterol Direct Vitamin B12 Crossmatch 11/17/21 11/17/21 11/17/21 05:56 11:00 11:55 WBC RBC Hgb 8.3 L Hct 26.9 L MCV MCH MCHC RDW Plt Count Seg Neuts % (Manual) Lymphocytes % (Manual) Seg Neutrophils # Man Lymphocytes # (Manual) Monocytes # (Manual) PT INR D-Dimer ABG pH ABG pO2 ABG HCO3 ABG O2 Saturation ABG Base Excess ABG Hemoglobin Oxyhemoglobin Sodium 151 H Potassium Chloride 113.6 H Carbon Dioxide BUN 85 H Creatinine Glucose 132 H POC Glucose 121 H Lactic Acid Calcium 7.8 L Phosphorus Magnesium AST ALT Alkaline Phosphatase Lactate Dehydrogenase Troponin T C-Reactive Protein NT-Pro-B Natriuret Pep Total Protein 5.1 L Albumin 2.2 L LDL Cholesterol Direct Vitamin B12 Crossmatch 11/17/21 11/17/21 11/18/21 18:04 18:55 00:26 WBC RBC Hgb 7.5 L 7.1 L Hct 24.8 L 23.6 L MCV MCH MCHC RDW Plt Count Seg Neuts % (Manual) Lymphocytes % (Manual) Seg Neutrophils # Man Lymphocytes # (Manual) Monocytes # (Manual) PT INR D-Dimer ABG pH ABG pO2 ABG HCO3 ABG O2 Saturation ABG Base Excess ABG Hemoglobin Oxyhemoglobin Sodium Potassium Chloride Carbon Dioxide BUN Creatinine Glucose POC Glucose 144 H Lactic Acid Calcium Phosphorus Magnesium AST ALT Alkaline Phosphatase Lactate Dehydrogenase Troponin T C-Reactive Protein NT-Pro-B Natriuret Pep Total Protein Albumin LDL Cholesterol Direct Vitamin B12 Crossmatch 11/18/21 11/18/21 11/18/21 00:43 05:10 05:10 WBC 12.5 H RBC 2.39 L Hgb 6.1 L Hct 20.2 L MCV MCH 25 L MCHC RDW 23.2 H Plt Count Seg Neuts % (Manual) Lymphocytes % (Manual) Seg Neutrophils # Man Lymphocytes # (Manual) Monocytes # (Manual) PT INR D-Dimer ABG pH ABG pO2 ABG HCO3 ABG O2 Saturation ABG Base Excess ABG Hemoglobin Oxyhemoglobin Sodium 131 L D Potassium 2.9 L* D Chloride 97.8 L Carbon Dioxide BUN 58 H Creatinine Glucose 665 H* POC Glucose 139 H Lactic Acid Calcium 7.0 L Phosphorus 2.20 L D Magnesium 1.50 L AST ALT Alkaline Phosphatase Lactate Dehydrogenase Troponin T C-Reactive Protein NT-Pro-B Natriuret Pep Total Protein Albumin LDL Cholesterol Direct Vitamin B12 Crossmatch 11/18/21 11/18/21 11/18/21 05:23 07:10 10:45 WBC RBC Hgb Hct MCV MCH MCHC RDW Plt Count Seg Neuts % (Manual) Lymphocytes % (Manual) Seg Neutrophils # Man Lymphocytes # (Manual) Monocytes # (Manual) PT INR D-Dimer ABG pH ABG pO2 ABG HCO3 ABG O2 Saturation ABG Base Excess ABG Hemoglobin Oxyhemoglobin Sodium 148 H D Potassium 3.1 L Chloride 111.9 H Carbon Dioxide BUN 63 H Creatinine Glucose 141 H POC Glucose 124 H Lactic Acid Calcium 8.1 L D Phosphorus Magnesium AST ALT Alkaline Phosphatase Lactate Dehydrogenase Troponin T C-Reactive Protein NT-Pro-B Natriuret Pep Total Protein Albumin LDL Cholesterol Direct Vitamin B12 Crossmatch See Detail 11/18/21 11/19/21 11/19/21 11:57 00:19 04:55 WBC RBC 3.35 L Hgb 9.0 L 8.9 L Hct 28.3 L D 28.1 L MCV MCH 27 L MCHC RDW 20.3 H Plt Count Seg Neuts % (Manual) Lymphocytes % (Manual) Seg Neutrophils # Man Lymphocytes # (Manual) Monocytes # (Manual) PT INR D-Dimer ABG pH ABG pO2 ABG HCO3 ABG O2 Saturation ABG Base Excess ABG Hemoglobin Oxyhemoglobin Sodium Potassium Chloride Carbon Dioxide BUN Creatinine Glucose POC Glucose 119 H Lactic Acid Calcium Phosphorus Magnesium AST ALT Alkaline Phosphatase Lactate Dehydrogenase Troponin T C-Reactive Protein NT-Pro-B Natriuret Pep Total Protein Albumin LDL Cholesterol Direct Vitamin B12 Crossmatch 11/19/21 11/19/21 11/20/21 04:55 05:42 00:55 WBC RBC Hgb 9.0 L Hct 28.6 L MCV MCH MCHC RDW Plt Count Seg Neuts % (Manual) Lymphocytes % (Manual) Seg Neutrophils # Man Lymphocytes # (Manual) Monocytes # (Manual) PT INR D-Dimer ABG pH ABG pO2 ABG HCO3 ABG O2 Saturation ABG Base Excess ABG Hemoglobin Oxyhemoglobin Sodium Potassium 3.5 L Chloride 108.6 H Carbon Dioxide BUN 47 H Creatinine Glucose 207 H POC Glucose 63 L Lactic Acid Calcium 7.1 L Phosphorus Magnesium AST ALT Alkaline Phosphatase Lactate Dehydrogenase Troponin T C-Reactive Protein NT-Pro-B Natriuret Pep Total Protein Albumin LDL Cholesterol Direct Vitamin B12 Crossmatch 11/20/21 11/20/21 11/20/21 05:40 05:40 Unknown WBC RBC 3.40 L Hgb 9.1 L Hct 28.8 L MCV MCH 27 L MCHC RDW 20.7 H Plt Count Seg Neuts % (Manual) Lymphocytes % (Manual) Seg Neutrophils # Man Lymphocytes # (Manual) Monocytes # (Manual) PT INR D-Dimer ABG pH ABG pO2 ABG HCO3 ABG O2 Saturation ABG Base Excess -2.7 L ABG Hemoglobin 9.5 L Oxyhemoglobin 94.3 L Sodium Potassium 3.5 L Chloride 108.9 H Carbon Dioxide BUN 37 H Creatinine Glucose 117 H POC Glucose Lactic Acid Calcium 7.5 L Phosphorus Magnesium AST ALT Alkaline Phosphatase Lactate Dehydrogenase Troponin T C-Reactive Protein NT-Pro-B Natriuret Pep Total Protein Albumin LDL Cholesterol Direct Vitamin B12 Crossmatch 11/21/21 11/21/2122 04:30 04:30 16:00 WBC RBC 3.25 L Hgb 8.6 L Hct 28.1 L MCV MCH 26 L MCHC RDW 20.7 H Plt Count Seg Neuts % (Manual) Lymphocytes % (Manual) Seg Neutrophils # Man Lymphocytes # (Manual) Monocytes # (Manual) PT INR D-Dimer ABG pH ABG pO2 114.2 H ABG HCO3 ABG O2 Saturation ABG Base Excess ABG Hemoglobin 9.1 L Oxyhemoglobin Sodium 134 L Potassium Chloride Carbon Dioxide 20 L BUN 34 H Creatinine Glucose POC Glucose Lactic Acid Calcium 7.1 L Phosphorus Magnesium AST ALT Alkaline Phosphatase Lactate Dehydrogenase Troponin T C-Reactive Protein NT-Pro-B Natriuret Pep Total Protein Albumin LDL Cholesterol Direct Vitamin B12 Crossmatch 11/22/21 11/22/21 11/22/21 07:07 07:07 23:54 WBC RBC 3.30 L Hgb 9.0 L Hct 28.5 L MCV MCH 27 L MCHC RDW 21.0 H Plt Count Seg Neuts % (Manual) Lymphocytes % (Manual) Seg Neutrophils # Man Lymphocytes # (Manual) Monocytes # (Manual) PT INR D-Dimer ABG pH ABG pO2 ABG HCO3 ABG O2 Saturation ABG Base Excess ABG Hemoglobin Oxyhemoglobin Sodium Potassium Chloride Carbon Dioxide BUN 32 H Creatinine Glucose 106 H POC Glucose 110 H Lactic Acid Calcium 7.5 L Phosphorus Magnesium AST ALT Alkaline Phosphatase Lactate Dehydrogenase Troponin T C-Reactive Protein NT-Pro-B Natriuret Pep Total Protein Albumin LDL Cholesterol Direct Vitamin B12 Crossmatch 11/23/21 11/23/21 11/23/21 04:38 04:38 06:01 WBC RBC 3.23 L Hgb 8.8 L Hct 28.0 L MCV MCH 27 L MCHC RDW 21.3 H Plt Count Seg Neuts % (Manual) Lymphocytes % (Manual) Seg Neutrophils # Man Lymphocytes # (Manual) Monocytes # (Manual) PT INR D-Dimer ABG pH ABG pO2 ABG HCO3 ABG O2 Saturation ABG Base Excess ABG Hemoglobin Oxyhemoglobin Sodium 136 L Potassium Chloride Carbon Dioxide 20 L BUN 32 H Creatinine Glucose 109 H POC Glucose 115 H Lactic Acid Calcium 7.7 L Phosphorus Magnesium AST ALT Alkaline Phosphatase Lactate Dehydrogenase Troponin T C-Reactive Protein NT-Pro-B Natriuret Pep Total Protein Albumin LDL Cholesterol Direct Vitamin B12 Crossmatch 11/23/21 11/24/21 11/24/21 11:40 00:03 04:13 WBC RBC 3.18 L Hgb 8.5 L Hct 27.5 L MCV MCH 27 L MCHC RDW 21.6 H Plt Count Seg Neuts % (Manual) Lymphocytes % (Manual) Seg Neutrophils # Man Lymphocytes # (Manual) Monocytes # (Manual) PT INR D-Dimer ABG pH ABG pO2 ABG HCO3 ABG O2 Saturation ABG Base Excess ABG Hemoglobin Oxyhemoglobin Sodium Potassium Chloride Carbon Dioxide BUN Creatinine Glucose POC Glucose 117 H 111 H Lactic Acid Calcium Phosphorus Magnesium AST ALT Alkaline Phosphatase Lactate Dehydrogenase Troponin T C-Reactive Protein NT-Pro-B Natriuret Pep Total Protein Albumin LDL Cholesterol Direct Vitamin B12 Crossmatch 11/24/21 11/24/21 11/24/21 04:13 05:30 11:10 WBC RBC Hgb Hct MCV MCH MCHC RDW Plt Count Seg Neuts % (Manual) Lymphocytes % (Manual) Seg Neutrophils # Man Lymphocytes # (Manual) Monocytes # (Manual) PT INR D-Dimer ABG pH ABG pO2 ABG HCO3 ABG O2 Saturation ABG Base Excess ABG Hemoglobin Oxyhemoglobin Sodium Potassium Chloride Carbon Dioxide BUN 31 H Creatinine Glucose 101 H POC Glucose 115 H 107 H Lactic Acid Calcium 7.7 L Phosphorus Magnesium AST ALT Alkaline Phosphatase Lactate Dehydrogenase Troponin T C-Reactive Protein NT-Pro-B Natriuret Pep Total Protein Albumin LDL Cholesterol Direct Vitamin B12 Crossmatch 11/24/21 11/24/21 11/25/21 16:34 17:57 05:12 WBC RBC 3.11 L Hgb 8.2 L Hct 26.6 L MCV MCH 26 L MCHC RDW 21.3 H Plt Count Seg Neuts % (Manual) Lymphocytes % (Manual) Seg Neutrophils # Man Lymphocytes # (Manual) Monocytes # (Manual) PT INR D-Dimer ABG pH ABG pO2 ABG HCO3 ABG O2 Saturation ABG Base Excess ABG Hemoglobin Oxyhemoglobin Sodium Potassium Chloride Carbon Dioxide BUN Creatinine Glucose POC Glucose 115 H 110 H Lactic Acid Calcium Phosphorus Magnesium AST ALT Alkaline Phosphatase Lactate Dehydrogenase Troponin T C-Reactive Protein NT-Pro-B Natriuret Pep Total Protein Albumin LDL Cholesterol Direct Vitamin B12 Crossmatch 11/25/21 11/25/21 11/26/21 05:12 11:20 05:00 WBC RBC 3.30 L Hgb 8.8 L Hct 28.2 L MCV MCH 27 L MCHC RDW 20.7 H Plt Count Seg Neuts % (Manual) Lymphocytes % (Manual) Seg Neutrophils # Man Lymphocytes # (Manual) Monocytes # (Manual) PT INR D-Dimer ABG pH ABG pO2 ABG HCO3 ABG O2 Saturation ABG Base Excess ABG Hemoglobin Oxyhemoglobin Sodium Potassium Chloride Carbon Dioxide BUN 32 H Creatinine Glucose 118 H POC Glucose 118 H Lactic Acid Calcium 8.2 L Phosphorus Magnesium AST ALT Alkaline Phosphatase Lactate Dehydrogenase Troponin T C-Reactive Protein NT-Pro-B Natriuret Pep Total Protein Albumin LDL Cholesterol Direct Vitamin B12 Crossmatch 11/26/21 11/26/21 11/26/21 05:00 05:00 05:44 WBC RBC Hgb Hct MCV MCH MCHC RDW Plt Count Seg Neuts % (Manual) Lymphocytes % (Manual) Seg Neutrophils # Man Lymphocytes # (Manual) Monocytes # (Manual) PT 16.9 H INR 1.24 H D-Dimer ABG pH ABG pO2 ABG HCO3 ABG O2 Saturation ABG Base Excess ABG Hemoglobin Oxyhemoglobin Sodium Potassium Chloride Carbon Dioxide BUN 31 H Creatinine Glucose 104 H POC Glucose 110 H Lactic Acid Calcium 7.9 L Phosphorus Magnesium AST ALT Alkaline Phosphatase Lactate Dehydrogenase Troponin T C-Reactive Protein NT-Pro-B Natriuret Pep Total Protein Albumin LDL Cholesterol Direct Vitamin B12 Crossmatch 11/26/21 11/27/21 11/27/21 23:55 07:40 07:40 WBC RBC 3.18 L Hgb 8.5 L Hct 27.0 L MCV MCH 27 L MCHC RDW 21.2 H Plt Count Seg Neuts % (Manual) Lymphocytes % (Manual) Seg Neutrophils # Man Lymphocytes # (Manual) Monocytes # (Manual) PT INR D-Dimer ABG pH ABG pO2 ABG HCO3 ABG O2 Saturation ABG Base Excess ABG Hemoglobin Oxyhemoglobin Sodium Potassium Chloride Carbon Dioxide BUN 27 H Creatinine Glucose 112 H POC Glucose 63 L Lactic Acid Calcium 7.6 L Phosphorus Magnesium AST ALT Alkaline Phosphatase Lactate Dehydrogenase Troponin T C-Reactive Protein NT-Pro-B Natriuret Pep Total Protein Albumin LDL Cholesterol Direct Vitamin B12 Crossmatch 11/27/21 11/27/21 11/27/21 12:04 13:40 13:40 WBC RBC 3.31 L Hgb 8.7 L Hct 28.0 L MCV MCH 26 L MCHC RDW 20.7 H Plt Count Seg Neuts % (Manual) Lymphocytes % (Manual) Seg Neutrophils # Man Lymphocytes # (Manual) Monocytes # (Manual) PT INR D-Dimer ABG pH ABG pO2 ABG HCO3 ABG O2 Saturation ABG Base Excess ABG Hemoglobin Oxyhemoglobin Sodium 136 L Potassium Chloride Carbon Dioxide BUN 25 H Creatinine Glucose 127 H POC Glucose 109 H Lactic Acid Calcium 7.6 L Phosphorus Magnesium 1.40 L AST ALT Alkaline Phosphatase Lactate Dehydrogenase Troponin T C-Reactive Protein NT-Pro-B Natriuret Pep Total Protein Albumin LDL Cholesterol Direct Vitamin B12 Crossmatch 11/27/21 11/27/21 11/28/21 17:44 23:33 12:20 WBC RBC Hgb Hct MCV MCH MCHC RDW Plt Count Seg Neuts % (Manual) Lymphocytes % (Manual) Seg Neutrophils # Man Lymphocytes # (Manual) Monocytes # (Manual) PT INR D-Dimer ABG pH ABG pO2 ABG HCO3 ABG O2 Saturation ABG Base Excess ABG Hemoglobin Oxyhemoglobin Sodium Potassium Chloride Carbon Dioxide BUN Creatinine Glucose POC Glucose 107 H 108 H 114 H Lactic Acid Calcium Phosphorus Magnesium AST ALT Alkaline Phosphatase Lactate Dehydrogenase Troponin T C-Reactive Protein NT-Pro-B Natriuret Pep Total Protein Albumin LDL Cholesterol Direct Vitamin B12 Crossmatch 11/29/21 11/29/21 11/29/21 00:09 03:20 03:20 WBC RBC 3.05 L Hgb 8.2 L Hct 25.8 L MCV MCH 27 L MCHC RDW 20.9 H Plt Count Seg Neuts % (Manual) Lymphocytes % (Manual) Seg Neutrophils # Man Lymphocytes # (Manual) Monocytes # (Manual) PT INR D-Dimer ABG pH ABG pO2 ABG HCO3 ABG O2 Saturation ABG Base Excess ABG Hemoglobin Oxyhemoglobin Sodium 133 L Potassium Chloride Carbon Dioxide BUN 24 H Creatinine Glucose 137 H POC Glucose 134 H Lactic Acid Calcium 7.4 L Phosphorus Magnesium AST ALT Alkaline Phosphatase Lactate Dehydrogenase Troponin T C-Reactive Protein NT-Pro-B Natriuret Pep Total Protein Albumin LDL Cholesterol Direct Vitamin B12 Crossmatch 11/29/21 11/29/21 11/29/21 05:38 11:39 17:11 WBC RBC Hgb Hct MCV MCH MCHC RDW Plt Count Seg Neuts % (Manual) Lymphocytes % (Manual) Seg Neutrophils # Man Lymphocytes # (Manual) Monocytes # (Manual) PT INR D-Dimer ABG pH ABG pO2 ABG HCO3 ABG O2 Saturation ABG Base Excess ABG Hemoglobin Oxyhemoglobin Sodium Potassium Chloride Carbon Dioxide BUN Creatinine Glucose POC Glucose 117 H 143 H 124 H Lactic Acid Calcium Phosphorus Magnesium AST ALT Alkaline Phosphatase Lactate Dehydrogenase Troponin T C-Reactive Protein NT-Pro-B Natriuret Pep Total Protein Albumin LDL Cholesterol Direct Vitamin B12 Crossmatch 11/29/21 11/30/21 11/30/21 20:15 05:40 05:40 WBC 12.6 H RBC 3.41 L Hgb 9.1 L Hct 28.9 L MCV MCH 27 L MCHC RDW 20.4 H Plt Count Seg Neuts % (Manual) Lymphocytes % (Manual) Seg Neutrophils # Man Lymphocytes # (Manual) Monocytes # (Manual) PT INR D-Dimer ABG pH ABG pO2 ABG HCO3 ABG O2 Saturation ABG Base Excess ABG Hemoglobin Oxyhemoglobin Sodium Potassium Chloride Carbon Dioxide BUN 24 H Creatinine Glucose 131 H POC Glucose Lactic Acid Calcium 7.6 L Phosphorus Magnesium AST ALT Alkaline Phosphatase Lactate Dehydrogenase Troponin T 0.045 H C-Reactive Protein NT-Pro-B Natriuret Pep Total Protein Albumin LDL Cholesterol Direct 25 L Vitamin B12 Crossmatch 11/30/21 11/30/21 12/01/21 11:29 16:51 05:00 WBC RBC 2.97 L Hgb 8.0 L Hct 25.0 L MCV MCH 27 L MCHC RDW 20.8 H Plt Count Seg Neuts % (Manual) Lymphocytes % (Manual) Seg Neutrophils # Man Lymphocytes # (Manual) Monocytes # (Manual) PT INR D-Dimer ABG pH ABG pO2 ABG HCO3 ABG O2 Saturation ABG Base Excess ABG Hemoglobin Oxyhemoglobin Sodium Potassium Chloride Carbon Dioxide BUN Creatinine Glucose POC Glucose 123 H 114 H Lactic Acid Calcium Phosphorus Magnesium AST ALT Alkaline Phosphatase Lactate Dehydrogenase Troponin T C-Reactive Protein NT-Pro-B Natriuret Pep Total Protein Albumin LDL Cholesterol Direct Vitamin B12 Crossmatch 12/01/21 12/01/21 12/01/21 05:00 05:25 11:54 WBC RBC Hgb Hct MCV MCH MCHC RDW Plt Count Seg Neuts % (Manual) Lymphocytes % (Manual) Seg Neutrophils # Man Lymphocytes # (Manual) Monocytes # (Manual) PT INR D-Dimer ABG pH ABG pO2 ABG HCO3 ABG O2 Saturation ABG Base Excess ABG Hemoglobin Oxyhemoglobin Sodium 136 L Potassium Chloride Carbon Dioxide BUN 24 H Creatinine Glucose 117 H POC Glucose 108 H 107 H Lactic Acid Calcium 7.5 L Phosphorus Magnesium 1.60 L AST ALT Alkaline Phosphatase Lactate Dehydrogenase Troponin T C-Reactive Protein NT-Pro-B Natriuret Pep Total Protein Albumin LDL Cholesterol Direct Vitamin B12 Crossmatch 12/01/21 12/02/21 12/02/21 17:40 00:07 04:20 WBC RBC 2.92 L Hgb 7.7 L Hct 24.3 L MCV MCH 26 L MCHC RDW 20.5 H Plt Count Seg Neuts % (Manual) Lymphocytes % (Manual) Seg Neutrophils # Man Lymphocytes # (Manual) Monocytes # (Manual) PT INR D-Dimer ABG pH ABG pO2 ABG HCO3 ABG O2 Saturation ABG Base Excess ABG Hemoglobin Oxyhemoglobin Sodium Potassium Chloride Carbon Dioxide BUN Creatinine Glucose POC Glucose 123 H 110 H Lactic Acid Calcium Phosphorus Magnesium AST ALT Alkaline Phosphatase Lactate Dehydrogenase Troponin T C-Reactive Protein NT-Pro-B Natriuret Pep Total Protein Albumin LDL Cholesterol Direct Vitamin B12 Crossmatch 12/02/21 12/02/21 12/02/21 04:20 11:17 18:20 WBC RBC Hgb Hct MCV MCH MCHC RDW Plt Count Seg Neuts % (Manual) Lymphocytes % (Manual) Seg Neutrophils # Man Lymphocytes # (Manual) Monocytes # (Manual) PT INR D-Dimer ABG pH ABG pO2 ABG HCO3 ABG O2 Saturation ABG Base Excess ABG Hemoglobin Oxyhemoglobin Sodium 135 L Potassium Chloride Carbon Dioxide BUN 26 H Creatinine Glucose 121 H POC Glucose 117 H 113 H Lactic Acid Calcium 7.4 L Phosphorus Magnesium AST ALT Alkaline Phosphatase Lactate Dehydrogenase Troponin T C-Reactive Protein NT-Pro-B Natriuret Pep Total Protein Albumin LDL Cholesterol Direct Vitamin B12 Crossmatch 12/03/21 12/03/21 12/03/21 00:12 04:00 04:00 WBC RBC 2.99 L Hgb 7.8 L Hct 24.6 L MCV MCH 26 L MCHC RDW 20.2 H Plt Count Seg Neuts % (Manual) Lymphocytes % (Manual) Seg Neutrophils # Man Lymphocytes # (Manual) Monocytes # (Manual) PT INR D-Dimer ABG pH ABG pO2 ABG HCO3 ABG O2 Saturation ABG Base Excess ABG Hemoglobin Oxyhemoglobin Sodium 136 L Potassium Chloride Carbon Dioxide BUN 27 H Creatinine Glucose 133 H POC Glucose 121 H Lactic Acid Calcium 7.5 L Phosphorus Magnesium AST ALT Alkaline Phosphatase Lactate Dehydrogenase Troponin T C-Reactive Protein NT-Pro-B Natriuret Pep Total Protein Albumin LDL Cholesterol Direct Vitamin B12 Crossmatch 12/03/21 12/03/21 12/03/21 06:30 11:13 16:00 WBC RBC Hgb Hct MCV MCH MCHC RDW Plt Count Seg Neuts % (Manual) Lymphocytes % (Manual) Seg Neutrophils # Man Lymphocytes # (Manual) Monocytes # (Manual) PT INR D-Dimer ABG pH ABG pO2 ABG HCO3 ABG O2 Saturation ABG Base Excess ABG Hemoglobin Oxyhemoglobin Sodium Potassium Chloride Carbon Dioxide BUN Creatinine Glucose POC Glucose 129 H 125 H 125 H Lactic Acid Calcium Phosphorus Magnesium AST ALT Alkaline Phosphatase Lactate Dehydrogenase Troponin T C-Reactive Protein NT-Pro-B Natriuret Pep Total Protein Albumin LDL Cholesterol Direct Vitamin B12 Crossmatch 12/03/21 12/04/21 12/04/21 23:32 04:00 05:36 WBC RBC Hgb Hct MCV MCH MCHC RDW Plt Count Seg Neuts % (Manual) Lymphocytes % (Manual) Seg Neutrophils # Man Lymphocytes # (Manual) Monocytes # (Manual) PT INR D-Dimer ABG pH ABG pO2 ABG HCO3 ABG O2 Saturation ABG Base Excess ABG Hemoglobin Oxyhemoglobin Sodium Potassium 3.5 L Chloride Carbon Dioxide BUN 26 H Creatinine 0.5 L Glucose 151 H POC Glucose 133 H 142 H Lactic Acid Calcium 8.3 L Phosphorus Magnesium AST ALT Alkaline Phosphatase Lactate Dehydrogenase Troponin T C-Reactive Protein NT-Pro-B Natriuret Pep Total Protein Albumin LDL Cholesterol Direct Vitamin B12 Crossmatch 12/04/21 12/04/21 12/05/21 11:24 15:58 04:36 WBC RBC Hgb Hct MCV MCH MCHC RDW Plt Count Seg Neuts % (Manual) Lymphocytes % (Manual) Seg Neutrophils # Man Lymphocytes # (Manual) Monocytes # (Manual) PT INR D-Dimer ABG pH ABG pO2 ABG HCO3 ABG O2 Saturation ABG Base Excess ABG Hemoglobin Oxyhemoglobin Sodium Potassium Chloride Carbon Dioxide BUN 21 H Creatinine 0.5 L Glucose 119 H POC Glucose 130 H 111 H Lactic Acid Calcium 8.3 L Phosphorus Magnesium AST ALT Alkaline Phosphatase Lactate Dehydrogenase Troponin T C-Reactive Protein NT-Pro-B Natriuret Pep Total Protein Albumin LDL Cholesterol Direct Vitamin B12 Crossmatch 12/05/21 12/05/21 12/05/21 05:15 10:40 11:12 WBC RBC 2.98 L Hgb 8.1 L Hct 24.6 L MCV MCH 27 L MCHC RDW 20.8 H Plt Count Seg Neuts % (Manual) Lymphocytes % (Manual) Seg Neutrophils # Man Lymphocytes # (Manual) Monocytes # (Manual) PT INR D-Dimer ABG pH ABG pO2 ABG HCO3 ABG O2 Saturation ABG Base Excess ABG Hemoglobin Oxyhemoglobin Sodium Potassium Chloride Carbon Dioxide BUN Creatinine Glucose POC Glucose 107 H 110 H Lactic Acid Calcium Phosphorus Magnesium AST ALT Alkaline Phosphatase Lactate Dehydrogenase Troponin T C-Reactive Protein NT-Pro-B Natriuret Pep Total Protein Albumin LDL Cholesterol Direct Vitamin B12 Crossmatch 12/05/21 12/06/21 12/06/21 23:39 04:25 04:25 WBC RBC 2.95 L Hgb 7.9 L Hct 24.7 L MCV MCH 27 L MCHC RDW 20.9 H Plt Count Seg Neuts % (Manual) Lymphocytes % (Manual) Seg Neutrophils # Man Lymphocytes # (Manual) Monocytes # (Manual) PT INR D-Dimer ABG pH ABG pO2 ABG HCO3 ABG O2 Saturation ABG Base Excess ABG Hemoglobin Oxyhemoglobin Sodium Potassium Chloride Carbon Dioxide BUN 22 H Creatinine 0.5 L Glucose 136 H POC Glucose 118 H Lactic Acid Calcium 8.2 L Phosphorus Magnesium AST ALT Alkaline Phosphatase Lactate Dehydrogenase Troponin T C-Reactive Protein NT-Pro-B Natriuret Pep Total Protein Albumin LDL Cholesterol Direct Vitamin B12 Crossmatch 12/06/21 12/06/21 12/07/21 05:28 11:27 04:00 WBC RBC Hgb 7.2 L Hct 21.8 L MCV MCH MCHC RDW Plt Count Seg Neuts % (Manual) Lymphocytes % (Manual) Seg Neutrophils # Man Lymphocytes # (Manual) Monocytes # (Manual) PT INR D-Dimer ABG pH ABG pO2 ABG HCO3 ABG O2 Saturation ABG Base Excess ABG Hemoglobin Oxyhemoglobin Sodium Potassium Chloride Carbon Dioxide BUN Creatinine Glucose POC Glucose 142 H 126 H Lactic Acid Calcium Phosphorus Magnesium AST ALT Alkaline Phosphatase Lactate Dehydrogenase Troponin T C-Reactive Protein NT-Pro-B Natriuret Pep Total Protein Albumin LDL Cholesterol Direct Vitamin B12 Crossmatch 02/12/07/21 12/07/21 04:00 05:30 11:12 WBC RBC Hgb Hct MCV MCH MCHC RDW Plt Count Seg Neuts % (Manual) Lymphocytes % (Manual) Seg Neutrophils # Man Lymphocytes # (Manual) Monocytes # (Manual) PT INR D-Dimer ABG pH ABG pO2 ABG HCO3 ABG O2 Saturation ABG Base Excess ABG Hemoglobin Oxyhemoglobin Sodium Potassium Chloride Carbon Dioxide BUN 22 H Creatinine Glucose 119 H POC Glucose 121 H 124 H Lactic Acid Calcium 8.0 L Phosphorus Magnesium AST ALT Alkaline Phosphatase Lactate Dehydrogenase Troponin T C-Reactive Protein NT-Pro-B Natriuret Pep Total Protein Albumin LDL Cholesterol Direct Vitamin B12 Crossmatch 12/08/21 12/08/21 12/08/21 04:00 04:00 05:39 WBC RBC 2.81 L Hgb 7.7 L Hct 23.5 L MCV MCH MCHC RDW 21.2 H Plt Count Seg Neuts % (Manual) Lymphocytes % (Manual) Seg Neutrophils # Man Lymphocytes # (Manual) Monocytes # (Manual) PT INR D-Dimer ABG pH ABG pO2 ABG HCO3 ABG O2 Saturation ABG Base Excess ABG Hemoglobin Oxyhemoglobin Sodium 135 L Potassium Chloride Carbon Dioxide BUN 23 H Creatinine Glucose 109 H POC Glucose 112 H Lactic Acid Calcium Phosphorus Magnesium AST ALT Alkaline Phosphatase Lactate Dehydrogenase Troponin T C-Reactive Protein NT-Pro-B Natriuret Pep Total Protein Albumin LDL Cholesterol Direct Vitamin B12 Crossmatch 12/08/21 12/09/21 12/09/21 11:03 04:20 04:20 WBC RBC 2.67 L Hgb 7.6 L Hct 22.1 L MCV MCH MCHC RDW 20.8 H Plt Count Seg Neuts % (Manual) Lymphocytes % (Manual) Seg Neutrophils # Man Lymphocytes # (Manual) Monocytes # (Manual) PT INR D-Dimer ABG pH ABG pO2 ABG HCO3 ABG O2 Saturation ABG Base Excess ABG Hemoglobin Oxyhemoglobin Sodium 135 L Potassium Chloride 97.8 L Carbon Dioxide BUN 26 H Creatinine Glucose 119 H POC Glucose 108 H Lactic Acid Calcium 7.7 L Phosphorus Magnesium AST ALT Alkaline Phosphatase Lactate Dehydrogenase Troponin T C-Reactive Protein NT-Pro-B Natriuret Pep Total Protein Albumin LDL Cholesterol Direct Vitamin B12 Crossmatch 12/09/21 12/10/21 12/10/21 11:26 04:33 11:12 WBC RBC Hgb Hct MCV MCH MCHC RDW Plt Count Seg Neuts % (Manual) Lymphocytes % (Manual) Seg Neutrophils # Man Lymphocytes # (Manual) Monocytes # (Manual) PT INR D-Dimer ABG pH ABG pO2 ABG HCO3 ABG O2 Saturation ABG Base Excess ABG Hemoglobin Oxyhemoglobin Sodium 136 L Potassium Chloride Carbon Dioxide BUN 27 H Creatinine Glucose 117 H POC Glucose 110 H 117 H Lactic Acid Calcium 8.2 L Phosphorus Magnesium AST ALT Alkaline Phosphatase Lactate Dehydrogenase Troponin T C-Reactive Protein NT-Pro-B Natriuret Pep Total Protein Albumin LDL Cholesterol Direct Vitamin B12 Crossmatch 12/10/21 12/10/21 12/11/21 16:02 23:31 04:35 WBC RBC 2.57 L Hgb 7.0 L Hct 21.4 L MCV MCH 27 L MCHC RDW 21.1 H Plt Count Seg Neuts % (Manual) Lymphocytes % (Manual) Seg Neutrophils # Man Lymphocytes # (Manual) Monocytes # (Manual) PT INR D-Dimer ABG pH ABG pO2 ABG HCO3 ABG O2 Saturation ABG Base Excess ABG Hemoglobin Oxyhemoglobin Sodium Potassium Chloride Carbon Dioxide BUN Creatinine Glucose POC Glucose 137 H 111 H Lactic Acid Calcium Phosphorus Magnesium AST ALT Alkaline Phosphatase Lactate Dehydrogenase Troponin T C-Reactive Protein NT-Pro-B Natriuret Pep Total Protein Albumin LDL Cholesterol Direct Vitamin B12 Crossmatch 12/11/21 12/11/21 12/11/21 04:35 12:46 16:07 WBC RBC Hgb Hct MCV MCH MCHC RDW Plt Count Seg Neuts % (Manual) Lymphocytes % (Manual) Seg Neutrophils # Man Lymphocytes # (Manual) Monocytes # (Manual) PT INR D-Dimer ABG pH ABG pO2 ABG HCO3 ABG O2 Saturation ABG Base Excess ABG Hemoglobin Oxyhemoglobin Sodium 136 L Potassium Chloride Carbon Dioxide BUN 27 H Creatinine Glucose 112 H POC Glucose 115 H 111 H Lactic Acid Calcium 7.6 L Phosphorus Magnesium AST ALT Alkaline Phosphatase Lactate Dehydrogenase Troponin T C-Reactive Protein NT-Pro-B Natriuret Pep Total Protein Albumin LDL Cholesterol Direct Vitamin B12 Crossmatch 12/11/21 12/12/21 12/12/21 23:42 04:30 04:30 WBC RBC 2.60 L Hgb 7.1 L Hct 21.5 L MCV MCH 27 L MCHC RDW 20.3 H Plt Count Seg Neuts % (Manual) Lymphocytes % (Manual) Seg Neutrophils # Man Lymphocytes # (Manual) Monocytes # (Manual) PT INR D-Dimer ABG pH ABG pO2 ABG HCO3 ABG O2 Saturation ABG Base Excess ABG Hemoglobin Oxyhemoglobin Sodium 135 L Potassium Chloride 97.9 L Carbon Dioxide BUN 26 H Creatinine 0.5 L Glucose 138 H POC Glucose 115 H Lactic Acid Calcium 8.2 L Phosphorus Magnesium AST ALT Alkaline Phosphatase Lactate Dehydrogenase Troponin T C-Reactive Protein NT-Pro-B Natriuret Pep Total Protein Albumin LDL Cholesterol Direct Vitamin B12 Crossmatch 12/12/21 12/12/21 12/12/21 04:30 05:10 11:51 WBC RBC Hgb Hct MCV MCH MCHC RDW Plt Count Seg Neuts % (Manual) Lymphocytes % (Manual) Seg Neutrophils # Man Lymphocytes # (Manual) Monocytes # (Manual) PT INR D-Dimer ABG pH ABG pO2 ABG HCO3 ABG O2 Saturation ABG Base Excess ABG Hemoglobin Oxyhemoglobin Sodium Potassium Chloride Carbon Dioxide BUN Creatinine Glucose POC Glucose 119 H 119 H Lactic Acid Calcium Phosphorus Magnesium AST ALT Alkaline Phosphatase Lactate Dehydrogenase Troponin T C-Reactive Protein NT-Pro-B Natriuret Pep Total Protein Albumin LDL Cholesterol Direct Vitamin B12 Crossmatch See Detail 12/13/21 12/13/21 12/13/21 00:52 04:00 04:00 WBC RBC 2.73 L Hgb 7.4 L Hct 22.8 L MCV MCH 27 L MCHC RDW 20.5 H Plt Count Seg Neuts % (Manual) Lymphocytes % (Manual) Seg Neutrophils # Man Lymphocytes # (Manual) Monocytes # (Manual) PT INR D-Dimer ABG pH ABG pO2 ABG HCO3 ABG O2 Saturation ABG Base Excess ABG Hemoglobin Oxyhemoglobin Sodium 134 L Potassium Chloride 96.7 L Carbon Dioxide BUN 23 H Creatinine 0.5 L Glucose 131 H POC Glucose 131 H Lactic Acid Calcium 8.1 L Phosphorus Magnesium AST ALT Alkaline Phosphatase Lactate Dehydrogenase Troponin T C-Reactive Protein NT-Pro-B Natriuret Pep Total Protein Albumin LDL Cholesterol Direct Vitamin B12 Crossmatch 12/13/21 12/13/21 12/13/21 05:23 12:11 17:18 WBC RBC Hgb Hct MCV MCH MCHC RDW Plt Count Seg Neuts % (Manual) Lymphocytes % (Manual) Seg Neutrophils # Man Lymphocytes # (Manual) Monocytes # (Manual) PT INR D-Dimer ABG pH ABG pO2 ABG HCO3 ABG O2 Saturation ABG Base Excess ABG Hemoglobin Oxyhemoglobin Sodium Potassium Chloride Carbon Dioxide BUN Creatinine Glucose POC Glucose 121 H 143 H 148 H Lactic Acid Calcium Phosphorus Magnesium AST ALT Alkaline Phosphatase Lactate Dehydrogenase Troponin T C-Reactive Protein NT-Pro-B Natriuret Pep Total Protein Albumin LDL Cholesterol Direct Vitamin B12 Crossmatch 12/14/21 12/14/21 12/14/21 00:54 04:20 04:20 WBC RBC 2.39 L Hgb 6.5 L Hct 20.3 L MCV MCH 27 L MCHC RDW 20.3 H Plt Count Seg Neuts % (Manual) Lymphocytes % (Manual) Seg Neutrophils # Man Lymphocytes # (Manual) Monocytes # (Manual) PT INR D-Dimer ABG pH ABG pO2 ABG HCO3 ABG O2 Saturation ABG Base Excess ABG Hemoglobin Oxyhemoglobin Sodium 130 L Potassium Chloride 93.5 L Carbon Dioxide BUN 25 H Creatinine Glucose 123 H POC Glucose 123 H Lactic Acid Calcium 8.0 L Phosphorus Magnesium AST ALT Alkaline Phosphatase Lactate Dehydrogenase Troponin T C-Reactive Protein NT-Pro-B Natriuret Pep Total Protein Albumin LDL Cholesterol Direct Vitamin B12 Crossmatch 12/14/21 12/14/21 12/14/21 05:06 08:17 10:30 WBC RBC Hgb Hct MCV MCH MCHC RDW Plt Count Seg Neuts % (Manual) Lymphocytes % (Manual) Seg Neutrophils # Man Lymphocytes # (Manual) Monocytes # (Manual) PT INR D-Dimer ABG pH ABG pO2 ABG HCO3 ABG O2 Saturation ABG Base Excess ABG Hemoglobin Oxyhemoglobin Sodium Potassium Chloride Carbon Dioxide BUN Creatinine Glucose POC Glucose 131 H 119 H Lactic Acid Calcium Phosphorus Magnesium AST ALT Alkaline Phosphatase Lactate Dehydrogenase Troponin T C-Reactive Protein NT-Pro-B Natriuret Pep Total Protein Albumin LDL Cholesterol Direct Vitamin B12 Crossmatch See Detail 12/14/21 12/14/21 12/14/21 12:15 16:37 23:27 WBC RBC Hgb Hct MCV MCH MCHC RDW Plt Count Seg Neuts % (Manual) Lymphocytes % (Manual) Seg Neutrophils # Man Lymphocytes # (Manual) Monocytes # (Manual) PT INR D-Dimer ABG pH ABG pO2 ABG HCO3 ABG O2 Saturation ABG Base Excess ABG Hemoglobin Oxyhemoglobin Sodium Potassium Chloride Carbon Dioxide BUN Creatinine Glucose POC Glucose 147 H 141 H 130 H Lactic Acid Calcium Phosphorus Magnesium AST ALT Alkaline Phosphatase Lactate Dehydrogenase Troponin T C-Reactive Protein NT-Pro-B Natriuret Pep Total Protein Albumin LDL Cholesterol Direct Vitamin B12 Crossmatch 12/15/21 12/15/21 12/15/21 05:00 07:00 07:00 WBC 12.3 H RBC 3.27 L Hgb 8.8 L Hct 27.5 L D MCV MCH 27 L MCHC RDW 19.0 H Plt Count Seg Neuts % (Manual) Lymphocytes % (Manual) Seg Neutrophils # Man Lymphocytes # (Manual) Monocytes # (Manual) PT INR D-Dimer ABG pH ABG pO2 ABG HCO3 ABG O2 Saturation ABG Base Excess ABG Hemoglobin Oxyhemoglobin Sodium 134 L Potassium Chloride 95.7 L Carbon Dioxide BUN 28 H Creatinine Glucose 129 H POC Glucose 129 H Lactic Acid Calcium 8.2 L Phosphorus Magnesium AST ALT Alkaline Phosphatase Lactate Dehydrogenase Troponin T C-Reactive Protein NT-Pro-B Natriuret Pep Total Protein Albumin LDL Cholesterol Direct Vitamin B12 Crossmatch 12/15/21 12/15/21 12/15/21 11:18 16:00 23:39 WBC RBC Hgb Hct MCV MCH MCHC RDW Plt Count Seg Neuts % (Manual) Lymphocytes % (Manual) Seg Neutrophils # Man Lymphocytes # (Manual) Monocytes # (Manual) PT INR D-Dimer ABG pH ABG pO2 ABG HCO3 ABG O2 Saturation ABG Base Excess ABG Hemoglobin Oxyhemoglobin Sodium Potassium Chloride Carbon Dioxide BUN Creatinine Glucose POC Glucose 139 H 137 H 146 H Lactic Acid Calcium Phosphorus Magnesium AST ALT Alkaline Phosphatase Lactate Dehydrogenase Troponin T C-Reactive Protein NT-Pro-B Natriuret Pep Total Protein Albumin LDL Cholesterol Direct Vitamin B12 Crossmatch 12/16/21 12/16/21 12/16/21 05:24 10:21 10:21 WBC 15.3 H RBC 3.24 L Hgb 8.9 L Hct 27.7 L MCV MCH MCHC RDW 19.0 H Plt Count Seg Neuts % (Manual) Lymphocytes % (Manual) Seg Neutrophils # Man Lymphocytes # (Manual) Monocytes # (Manual) PT INR D-Dimer ABG pH ABG pO2 ABG HCO3 ABG O2 Saturation ABG Base Excess ABG Hemoglobin Oxyhemoglobin Sodium 131 L Potassium 3.5 L Chloride 92.7 L Carbon Dioxide BUN 36 H Creatinine Glucose 160 H POC Glucose 121 H Lactic Acid Calcium Phosphorus Magnesium 1.60 L AST ALT Alkaline Phosphatase Lactate Dehydrogenase Troponin T C-Reactive Protein NT-Pro-B Natriuret Pep Total Protein Albumin LDL Cholesterol Direct Vitamin B12 Crossmatch 12/16/21 12/16/21 12/16/21 11:21 18:28 20:52 WBC RBC Hgb Hct MCV MCH MCHC RDW Plt Count Seg Neuts % (Manual) Lymphocytes % (Manual) Seg Neutrophils # Man Lymphocytes # (Manual) Monocytes # (Manual) PT INR D-Dimer ABG pH 7.479 H ABG pO2 79.3 L ABG HCO3 27.3 H ABG O2 Saturation ABG Base Excess 3.6 H ABG Hemoglobin 9.1 L Oxyhemoglobin 94.9 L Sodium Potassium Chloride Carbon Dioxide BUN Creatinine Glucose POC Glucose 153 H 132 H Lactic Acid Calcium Phosphorus Magnesium AST ALT Alkaline Phosphatase Lactate Dehydrogenase Troponin T C-Reactive Protein NT-Pro-B Natriuret Pep Total Protein Albumin LDL Cholesterol Direct Vitamin B12 Crossmatch 12/16/21 12/17/21 12/17/21 23:30 04:25 04:25 WBC 12.3 H RBC 2.16 L Hgb 6.0 L Hct 18.1 L* D MCV MCH MCHC RDW 19.4 H Plt Count Seg Neuts % (Manual) Lymphocytes % (Manual) Seg Neutrophils # Man Lymphocytes # (Manual) Monocytes # (Manual) PT INR D-Dimer ABG pH ABG pO2 ABG HCO3 ABG O2 Saturation ABG Base Excess ABG Hemoglobin Oxyhemoglobin Sodium 132 L Potassium 3.2 L Chloride 112.0 H Carbon Dioxide BUN 32 H Creatinine Glucose 122 H POC Glucose 137 H Lactic Acid Calcium 6.8 L D Phosphorus Magnesium AST ALT Alkaline Phosphatase Lactate Dehydrogenase Troponin T C-Reactive Protein NT-Pro-B Natriuret Pep Total Protein Albumin LDL Cholesterol Direct Vitamin B12 Crossmatch 12/17/21 12/17/21 12/17/21 05:30 11:49 14:45 WBC RBC Hgb 9.7 L D Hct MCV MCH MCHC RDW Plt Count Seg Neuts % (Manual) Lymphocytes % (Manual) Seg Neutrophils # Man Lymphocytes # (Manual) Monocytes # (Manual) PT INR D-Dimer ABG pH ABG pO2 ABG HCO3 ABG O2 Saturation ABG Base Excess ABG Hemoglobin Oxyhemoglobin Sodium Potassium Chloride Carbon Dioxide BUN Creatinine Glucose POC Glucose 137 H 143 H Lactic Acid Calcium Phosphorus Magnesium AST ALT Alkaline Phosphatase Lactate Dehydrogenase Troponin T C-Reactive Protein NT-Pro-B Natriuret Pep Total Protein Albumin LDL Cholesterol Direct Vitamin B12 Crossmatch 12/17/21 12/18/21 12/18/21 17:01 05:04 05:04 WBC 13.8 H RBC 3.44 L Hgb 9.9 L Hct 28.8 L MCV MCH MCHC RDW 18.1 H Plt Count Seg Neuts % (Manual) Lymphocytes % (Manual) Seg Neutrophils # Man Lymphocytes # (Manual) Monocytes # (Manual) PT INR D-Dimer ABG pH ABG pO2 ABG HCO3 ABG O2 Saturation ABG Base Excess ABG Hemoglobin Oxyhemoglobin Sodium 132 L Potassium Chloride 97.4 L Carbon Dioxide BUN 38 H Creatinine Glucose 134 H POC Glucose 132 H Lactic Acid Calcium Phosphorus Magnesium AST ALT Alkaline Phosphatase Lactate Dehydrogenase Troponin T C-Reactive Protein NT-Pro-B Natriuret Pep Total Protein Albumin LDL Cholesterol Direct Vitamin B12 Crossmatch 12/18/21 12/18/21 05:28 10:57 WBC RBC Hgb Hct MCV MCH MCHC RDW Plt Count Seg Neuts % (Manual) Lymphocytes % (Manual) Seg Neutrophils # Man Lymphocytes # (Manual) Monocytes # (Manual) PT INR D-Dimer ABG pH ABG pO2 ABG HCO3 ABG O2 Saturation ABG Base Excess ABG Hemoglobin Oxyhemoglobin Sodium Potassium Chloride Carbon Dioxide BUN Creatinine Glucose POC Glucose 118 H 132 H Lactic Acid Calcium Phosphorus Magnesium AST ALT Alkaline Phosphatase Lactate Dehydrogenase Troponin T C-Reactive Protein NT-Pro-B Natriuret Pep Total Protein Albumin LDL Cholesterol Direct Vitamin B12 Crossmatch Allied health notes reviewed: nursing
--- NOTE | 2021-12-18 13:42 | Progress Note ---
Assessment and Plan Cultures: SARS CoV2 PCR: negative 11/03/2021 blood culture: Group B streptococcus 11/04/2021 blood culture: no growth 11/11/2021 blood culture: No growth 12/16/2021 tracheal aspirate culture no growth so far 12/16/2021 blood culture no growth so far A/P: 81-year-old female with diabetes mellitus, hypertension, arthritis was admitted with shortness of breath. She was also having fever: #Acute fevers: nclear source. Possibly too high for DVT fevers. Would rule out other sources such as CLABSI and UTI given her lines and Rachel #Severe sepsis with shock, secondary to bilateral pneumonia: likely from Group B Strep. COVID-19 negative. Resolved #Group B Strep bacteremia: Likely secondary to above, no other source identified, other possibility is mild lower extremity cellulitis. Does have indwelling cardiac device, per patient it is a pacemaker. TTE showed no valvular or lead vegetations #Acute hypoxic respiratory failure: Secondary to above. Tracheostomy, on the vent. #Acute DVT: unable to anticoagulate Recs: -agree with cefepime and vancomycin for now. -Follow up blood and urine cultures. -If white count remains elevated tomorrow may need gonzalez scan to elucidate cause if cultures remain negative as well. Will follow. Mahogany Montes MD [facility] ([facility] O: [phone] F: [phone] Subjective Date of service: 12/18/21 Principal diagnosis: Septic shock; AHRF; Anemia; Pneumonia; pleural effusion; HFrEF; Pulm HTN Interval history: Afebrile, white count 13.8. Cultures are negative. Objective - Exam Narrative Exam: Physical exam deferred to reduce risk of transmission of COVID-19. Please refer to primary team's note. - Constitutional Vitals: Vital Signs Temp Pulse Resp BP Pulse Ox 98.7 F 64 27 H 117/52 98 12/18/21 12:00 12/18/21 13:00 12/18/21 13:00 12/18/21 13:00 12/18/21 13:00 Temperature -Last 24 Hours Temperature 98.7 F Temperature 98.7 F Temperature 98.1 F Temperature 98.5 F Temperature 98.9 F Temperature 99 F Temperature 98.1 F - Labs CBC & Chem 7: 12/18/21 05:04 12/18/21 05:04 Labs: Abnormal lab results 12/17/21 12/17/21 12/18/21 Range/Units 14:45 17:01 05:04 WBC 13.8 H (4.5-11.0) K/mm3 RBC 3.44 L (3.65-5.03) M/mm3 Hgb 9.7 L D 9.9 L (10.1-14.3) gm/dl Hct 28.8 L (30.3-42.9) % RDW 18.1 H (13.2-15.2) % Sodium (137-145) mmol/L Chloride (98-107) mmol/L BUN (7-17) mg/dL Glucose (65-100) mg/dL POC Glucose 132 H (70-105) mg/dL 12/18/21 12/18/21 12/18/21 Range/Units 05:04 05:28 10:57 WBC (4.5-11.0) K/mm3 RBC (3.65-5.03) M/mm3 Hgb (10.1-14.3) gm/dl Hct (30.3-42.9) % RDW (13.2-15.2) % Sodium 132 L (137-145) mmol/L Chloride 97.4 L (98-107) mmol/L BUN 38 H (7-17) mg/dL Glucose 134 H (65-100) mg/dL POC Glucose 118 H 132 H (70-105) mg/dL
[2021-12-18] MEDS: VANCOMYCIN/NS 1 GM/250 ML 1 GM/250 ML BAG IV SCH (15:00)
[2021-12-18] MEDS: DOCUSATE SODIUM 100 MG/10 ML ORAL LIQD PO SCH ×2 (15:13→21:32)
[2021-12-18] MEDS: POLYETHYLENE GLYCOL 3350 17 GM POWDER PO SCH (15:13)
[2021-12-18] MEDS: QUEtiapine 25 MG TAB PO SCH (21:22)
[2021-12-18] MEDS: MELATONIN 5 MG TAB PO SCH (21:23)
[2021-12-18] MEDS: traZODone 50 MG TAB PO SCH (21:23)
[2021-12-18] MEDS: PRAVASTATIN 20 MG TAB PO SCH (21:23)
[2021-12-19 05:09] LABS: Hematocrit 29.1 % (30.3-42.9); Hemoglobin 9.7 gm/dl (10.1-14.3); Mean Corpuscular HGB Conc 33 % (30-34); Mean Corpuscular Volume 84 fl (79-97); Red Blood Count 3.45 M/mm3 (3.65-5.03); Red Cell Distribution Width 17.8 % (13.2-15.2)
[2021-12-19 05:10] LABS: Platelet Count 230 K/mm3 (140-440)
[2021-12-19] MEDS: CEFEPIME/NS 2 GM/100 ML 2 GM/100 ML BAG IV SCH ×2 (05:16→14:53)
[2021-12-19 05:29] LABS: Blood Urea Nitrogen 36 mg/dL (7-17); Calcium 8.3 mg/dL (8.4-10.2); Hemolysis Index 10
[2021-12-19] MEDS: LEVOTHYROXINE 125 MCG TAB PO SCH (05:35)
[2021-12-19 05:38] LABS: BUN/Creatinine Ratio 72
[2021-12-19] MEDS: SUCRALFATE 1 GM/10 ML ORAL LIQD PO SCH ×4 (07:45→21:55)
[2021-12-19] MEDS: ALPRAZolam 0.25 MG TAB PO PRN (07:45)
[2021-12-19] MEDS: HYDROcodone/ACETAMINOPHEN 10-325MG TAB FEEDTUBE SCH ×3 (07:45→21:52)
[2021-12-19] MEDS: MIDODRINE 5 MG TAB PO SCH ×2 (09:49→21:54)
[2021-12-19] MEDS: LANSOPRAZOLE 30 MG SOLUTAB FEEDTUBE SCH ×2 (09:50→21:52)
[2021-12-19] MEDS: METOPROLOL TARTRATE 25 MG TAB PO SCH ×2 (09:50→21:53)
[2021-12-19] MEDS: busPIRone 5 MG TAB PO SCH ×2 (09:50→21:52)
[2021-12-19] MEDS: GABAPENTIN 100 MG CAP PO SCH (09:50)
[2021-12-19] MEDS: DOCUSATE SODIUM 100 MG/10 ML ORAL LIQD PO SCH ×2 (09:51→21:55)
[2021-12-19] MEDS: POLYETHYLENE GLYCOL 3350 17 GM POWDER PO SCH (09:51)
[2021-12-19] MEDS: FUROSEMIDE 20 MG TAB PO SCH (09:51)
--- NOTE | 2021-12-19 12:37 | Progress Note ---
Assessment and Plan Gram positive Bacteremia Acute respiratory failure with hypoxia, now on MVS Acute microcytic anemia Bilateral pneumonia DVT Left pleural effusion Cardiomyopathy EF 30-35% Moderate pulmonary HTN RVSP 49e - add am Seroquel 50 mg p.o. - repeat BC's in am - continue Cefepime and Vancomycin empirically - continue daily SAT and SBT assessment as tolerated - LTAC evaluation ongoing - no new issues otherwise, continue care as below; - continue gentle diuresis - continue Midodrine - prn Levophed for target MAP > 65 mmHg - continue to wean supplemental oxygen for target O2 sat's > 90% acutely - VAP bundle addressed - continue lung protective strategies - continue bronchodilators with routine trach care and pulmonary hygiene per RT - wean per pulmonary driven protocols otherwise - avoid nephrotoxins, renally dose all medications - continue accuchecks with glycemic control per SSI (While critically ill target blood glucose of 140-180 mg/dL; avoid hypoglycemia) - sedation prn for target RASS 0 to -1 - antibiotics per ID recommendations - continue to avoid benzodiazepine's, reduce the possibility of delirium - prn analgesia per CPOT score - Maintenance of sleep-wake cycle, avoid delirium - continue enteral nutritional support at goal rate as tolerated - G.I. & VTE prophylaxis - PT/OT/ROM exercises - continue mobility protocols for pressure ulcer prophylaxis - Monitor hemodynamics closely - continue other care per attending / other consultants - discharge planning ongoing concurrently COVID SPECIFIC INTERVENTIONS - COVID-19 PCR negative .... Re-evaluate in am & prn CONDITION: CRITICAL PROGNOSIS: GUARDED CODE STATUS: FULL CODE The high probability of a clinically significant, sudden or life-threatening deterioration of the [respiratory, cardiovascular & neurologic] system(s) required my full and direct attention, intervention and personal management. The aggregate critical care time was [33] minutes without overlap. Time includes spent on; [x] Data Review and interpretation [x] Patient assessment and monitoring of vital signs [x] Documentation [x] Medication orders and management Subjective Date of service: 12/19/21 Principal diagnosis: Septic shock; AHRF; Anemia; Pneumonia; pleural effusion; HFrEF; Pulm HTN Interval history: Severe Sepsis POA vs septic shock- 11/03/2021 blood culture: Patient is seen today for: Septic shock; Acute hypoxemic respiratory failure; Anemia; Bilateral pneumonia; Left pleural effusion; HFrEF 30-35%; Pulm HTN RVSP 49 Seen and examined at bedside; 24hour events reviewed; nursing and respiratory care staff consulted; no adverse overnight events reported to me; resting in bed; remains a difficult wean; on MVS; no high grade fevers; denies N/V/F/C; now making some urine; remains with agitation / anxiety issues Objective Vital Signs - 12hr 12/19/21 12/19/21 12/19/21 01:00 02:00 03:00 Temperature Pulse Rate 61 64 65 Pulse Rate [ From Monitor] Respiratory 14 14 14 Rate Blood Pressure 126/59 132/68 133/66 O2 Sat by Pulse 100 100 100 Oximetry O2 Sat by Pulse Oximetry [ Assessment] 12/19/21 12/19/21 12/19/21 04:00 05:00 06:00 Temperature 97.6 F Pulse Rate 66 96 H 76 Pulse Rate [ From Monitor] Respiratory 15 16 15 Rate Blood Pressure 133/67 133/67 137/75 O2 Sat by Pulse 100 98 97 Oximetry O2 Sat by Pulse Oximetry [ Assessment] 12/19/21 12/19/21 12/19/21 07:00 08:00 08:07 Temperature 97 F L Pulse Rate 80 95 H Pulse Rate [ 74 From Monitor] Respiratory 24 20 25 H Rate Blood Pressure 145/75 145/75 O2 Sat by Pulse 99 99 97 Oximetry O2 Sat by Pulse 98 Oximetry [ Assessment] 12/19/21 12/19/21 12/19/21 09:00 09:50 10:00 Temperature Pulse Rate 79 82 81 Pulse Rate [ From Monitor] Respiratory 14 18 Rate Blood Pressure 169/115 151/115 143/57 O2 Sat by Pulse 96 96 Oximetry O2 Sat by Pulse Oximetry [ Assessment] 12/19/21 12/19/21 12/19/21 11:00 11:56 12:00 Temperature 97.2 F L Pulse Rate 73 78 Pulse Rate [ 74 From Monitor] Respiratory 14 17 Rate Blood Pressure 142/64 131/110 O2 Sat by Pulse 97 98 Oximetry O2 Sat by Pulse Oximetry [ Assessment] Constitutional: alert, appears uncomfortable (restless really), other (trach to MVS, frail elderly woman with mildly increased respiratory effort at rest) Eyes: non-icteric ENT: oropharynx moist, other (+ Midline tracheostomy with minimal secretions) Neck: supple, no lymphadenopathy, no JVD Effort: mildly labored Ascultation: Bilateral: diminished breath sounds, rhonchi Percussion: Bilateral: not dull Cardiovascular: regular rate and rhythm, other (S1,S2) Gastrointestinal: normoactive bowel sounds, soft, non-tender, non-distended (protuberant) Integumentary: normal Extremities: no cyanosis, pink and warm, pulses normal, edema (upper etremities) Neurologic: normal mental status, non-focal exam (grossly), pupils equal and round, motor strength normal and Psychiatric: mood appropriate CBC and BMP: 12/22/21 04:58 12/22/21 04:58 ABG, PT/INR, D-dimer: ABG ABG pH 7.479 pH Units (7.350-7.450) H 12/16/21 20:52 ABG pCO2 37.5 mm Hg 12/16/21 20:52 ABG pO2 79.3 mm Hg (80.0-90.0) L 12/16/21 20:52 ABG O2 Saturation 97.0 % (95.0-99.0) 12/16/21 20:52 PT/INR, D-dimer PT 16.9 Sec. (12.2-14.9) H 11/26/21 05:00 INR 1.24 (0.87-1.13) H 11/26/21 05:00 D-Dimer 2655.00 ng/mlDDU (0-234) H 11/11/21 04:28 Abnormal lab findings: Abnormal Labs 11/03/21 11/03/21 11/03/21 22:32 22:32 22:32 WBC 29.3 H RBC 2.93 L Hgb 6.1 L Hct 21.9 L MCV 75 L MCH 21 L MCHC 28 L RDW 19.7 H Plt Count Seg Neuts % (Manual) 97.0 H Lymphocytes % (Manual) 3.0 L Seg Neutrophils # Man 28.4 H Lymphocytes # (Manual) 0.9 L Monocytes # (Manual) PT 18.6 H INR 1.40 H D-Dimer ABG pH ABG pO2 ABG HCO3 ABG O2 Saturation ABG Base Excess ABG Hemoglobin Oxyhemoglobin Sodium Potassium Chloride Carbon Dioxide 20 L BUN 33 H Creatinine Glucose 119 H POC Glucose Lactic Acid Calcium 8.3 L Phosphorus Magnesium AST ALT Alkaline Phosphatase Lactate Dehydrogenase Troponin T 0.035 H C-Reactive Protein NT-Pro-B Natriuret Pep Total Protein Albumin LDL Cholesterol Direct 34 L Vitamin B12 Crossmatch 11/03/21 11/03/21 11/03/21 22:32 22:32 23:57 WBC RBC Hgb Hct MCV MCH MCHC RDW Plt Count Seg Neuts % (Manual) Lymphocytes % (Manual) Seg Neutrophils # Man Lymphocytes # (Manual) Monocytes # (Manual) PT INR D-Dimer ABG pH ABG pO2 ABG HCO3 ABG O2 Saturation ABG Base Excess ABG Hemoglobin Oxyhemoglobin Sodium Potassium Chloride Carbon Dioxide BUN Creatinine Glucose POC Glucose Lactic Acid 3.70 H* Calcium Phosphorus Magnesium AST ALT Alkaline Phosphatase 139 H Lactate Dehydrogenase Troponin T C-Reactive Protein NT-Pro-B Natriuret Pep 7895 H Total Protein Albumin 3.5 L LDL Cholesterol Direct Vitamin B12 Crossmatch See Detail 11/04/21 11/04/21 11/05/21 00:59 13:58 00:51 WBC 27.9 H RBC 3.28 L Hgb 7.3 L Hct 25.5 L MCV 78 L MCH 22 L MCHC 29 L RDW 19.1 H Plt Count Seg Neuts % (Manual) 96.0 H Lymphocytes % (Manual) 2.0 L Seg Neutrophils # Man 26.8 H Lymphocytes # (Manual) 0.6 L Monocytes # (Manual) PT INR D-Dimer ABG pH ABG pO2 ABG HCO3 ABG O2 Saturation ABG Base Excess ABG Hemoglobin Oxyhemoglobin Sodium Potassium Chloride Carbon Dioxide BUN Creatinine Glucose POC Glucose Lactic Acid Calcium Phosphorus Magnesium AST ALT Alkaline Phosphatase Lactate Dehydrogenase Troponin T 0.051 H D 0.032 H D C-Reactive Protein NT-Pro-B Natriuret Pep Total Protein Albumin LDL Cholesterol Direct Vitamin B12 Crossmatch 11/05/21 11/05/21 11/05/21 06:11 06:11 06:11 WBC 31.8 H RBC 3.57 L Hgb 8.0 L Hct 27.7 L MCV 78 L MCH 22 L MCHC 29 L RDW 19.2 H Plt Count Seg Neuts % (Manual) 91.0 H Lymphocytes % (Manual) 4.5 L Seg Neutrophils # Man 28.9 H Lymphocytes # (Manual) Monocytes # (Manual) 1.1 H PT INR D-Dimer 1494.53 H ABG pH ABG pO2 ABG HCO3 ABG O2 Saturation ABG Base Excess ABG Hemoglobin Oxyhemoglobin Sodium Potassium Chloride Carbon Dioxide 19 L BUN 42 H Creatinine Glucose 115 H POC Glucose Lactic Acid Calcium Phosphorus Magnesium AST 43 H ALT Alkaline Phosphatase Lactate Dehydrogenase 187 H Troponin T C-Reactive Protein 22.20 H NT-Pro-B Natriuret Pep Total Protein 6.0 L Albumin 3.2 L LDL Cholesterol Direct Vitamin B12 Crossmatch 11/05/21 11/05/21 11/06/21 06:11 12:15 00:30 WBC RBC Hgb Hct MCV MCH MCHC RDW Plt Count Seg Neuts % (Manual) Lymphocytes % (Manual) Seg Neutrophils # Man Lymphocytes # (Manual) Monocytes # (Manual) PT INR D-Dimer ABG pH ABG pO2 ABG HCO3 ABG O2 Saturation ABG Base Excess ABG Hemoglobin Oxyhemoglobin Sodium Potassium Chloride Carbon Dioxide BUN Creatinine Glucose POC Glucose 113 H 69 L Lactic Acid Calcium Phosphorus Magnesium AST ALT Alkaline Phosphatase Lactate Dehydrogenase Troponin T 0.033 H C-Reactive Protein NT-Pro-B Natriuret Pep Total Protein Albumin LDL Cholesterol Direct Vitamin B12 Crossmatch 11/06/21 11/06/21 11/06/21 05:50 15:50 15:50 WBC 25.5 H RBC 3.62 L Hgb 8.0 L Hct 27.5 L MCV 76 L MCH 22 L MCHC 29 L RDW 19.6 H Plt Count Seg Neuts % (Manual) 92.0 H Lymphocytes % (Manual) 5.0 L Seg Neutrophils # Man 23.5 H Lymphocytes # (Manual) Monocytes # (Manual) PT INR D-Dimer ABG pH 7.305 L ABG pO2 ABG HCO3 15.8 L ABG O2 Saturation ABG Base Excess -9.6 L ABG Hemoglobin 8.6 L Oxyhemoglobin 94.6 L Sodium Potassium Chloride 113.9 H Carbon Dioxide 17 L BUN 56 H Creatinine Glucose 114 H POC Glucose Lactic Acid Calcium 7.9 L Phosphorus Magnesium AST 1410 H ALT 934 H Alkaline Phosphatase 142 H Lactate Dehydrogenase Troponin T C-Reactive Protein NT-Pro-B Natriuret Pep Total Protein 5.0 L Albumin 2.6 L LDL Cholesterol Direct Vitamin B12 Crossmatch 11/07/21 11/07/21 11/07/21 03:30 04:50 08:07 WBC RBC Hgb Hct MCV MCH MCHC RDW Plt Count Seg Neuts % (Manual) Lymphocytes % (Manual) Seg Neutrophils # Man Lymphocytes # (Manual) Monocytes # (Manual) PT INR D-Dimer ABG pH ABG pO2 296.9 H ABG HCO3 18.1 L ABG O2 Saturation 99.5 H ABG Base Excess -5.9 L ABG Hemoglobin 7.6 L Oxyhemoglobin Sodium Potassium Chloride Carbon Dioxide BUN Creatinine Glucose POC Glucose 106 H 108 H Lactic Acid Calcium Phosphorus Magnesium AST ALT Alkaline Phosphatase Lactate Dehydrogenase Troponin T C-Reactive Protein NT-Pro-B Natriuret Pep Total Protein Albumin LDL Cholesterol Direct Vitamin B12 Crossmatch 11/08/21 11/08/21 11/08/21 03:10 18:05 23:43 WBC RBC Hgb Hct MCV MCH MCHC RDW Plt Count Seg Neuts % (Manual) Lymphocytes % (Manual) Seg Neutrophils # Man Lymphocytes # (Manual) Monocytes # (Manual) PT INR D-Dimer ABG pH ABG pO2 127.4 H ABG HCO3 ABG O2 Saturation ABG Base Excess -3.4 L ABG Hemoglobin 7.4 L Oxyhemoglobin Sodium Potassium Chloride Carbon Dioxide BUN Creatinine Glucose POC Glucose 113 H 141 H Lactic Acid Calcium Phosphorus Magnesium AST ALT Alkaline Phosphatase Lactate Dehydrogenase Troponin T C-Reactive Protein NT-Pro-B Natriuret Pep Total Protein Albumin LDL Cholesterol Direct Vitamin B12 Crossmatch 11/08/21 11/08/21 11/09/21 Unknown Unknown 02:00 WBC 14.5 H RBC 3.35 L Hgb 7.5 L 8.1 L Hct 25.4 L 27.6 L MCV 76 L 76 L MCH 23 L 22 L MCHC RDW 19.9 H 19.9 H Plt Count Seg Neuts % (Manual) Lymphocytes % (Manual) Seg Neutrophils # Man Lymphocytes # (Manual) Monocytes # (Manual) PT INR D-Dimer ABG pH ABG pO2 ABG HCO3 ABG O2 Saturation ABG Base Excess ABG Hemoglobin Oxyhemoglobin Sodium 154 H D Potassium 3.3 L Chloride 120.7 H Carbon Dioxide 20 L BUN 38 H Creatinine Glucose POC Glucose Lactic Acid Calcium 8.3 L Phosphorus Magnesium AST ALT Alkaline Phosphatase Lactate Dehydrogenase Troponin T C-Reactive Protein NT-Pro-B Natriuret Pep Total Protein Albumin LDL Cholesterol Direct Vitamin B12 Crossmatch 11/09/21 11/09/21 11/09/21 02:00 02:31 05:12 WBC RBC Hgb Hct MCV MCH MCHC RDW Plt Count Seg Neuts % (Manual) Lymphocytes % (Manual) Seg Neutrophils # Man Lymphocytes # (Manual) Monocytes # (Manual) PT INR D-Dimer ABG pH 7.479 H ABG pO2 121.3 H ABG HCO3 ABG O2 Saturation ABG Base Excess ABG Hemoglobin 7.3 L Oxyhemoglobin Sodium Potassium Chloride 112.5 H Carbon Dioxide BUN 33 H Creatinine Glucose 161 H POC Glucose 135 H Lactic Acid Calcium Phosphorus Magnesium AST 251 H ALT 481 H Alkaline Phosphatase Lactate Dehydrogenase Troponin T C-Reactive Protein NT-Pro-B Natriuret Pep Total Protein 5.0 L Albumin 2.8 L LDL Cholesterol Direct Vitamin B12 Crossmatch 11/09/21 11/09/21 11/09/21 11:33 16:32 23:28 WBC RBC Hgb Hct MCV MCH MCHC RDW Plt Count Seg Neuts % (Manual) Lymphocytes % (Manual) Seg Neutrophils # Man Lymphocytes # (Manual) Monocytes # (Manual) PT INR D-Dimer ABG pH ABG pO2 ABG HCO3 ABG O2 Saturation ABG Base Excess ABG Hemoglobin Oxyhemoglobin Sodium Potassium Chloride Carbon Dioxide BUN Creatinine Glucose POC Glucose 132 H 133 H 143 H Lactic Acid Calcium Phosphorus Magnesium AST ALT Alkaline Phosphatase Lactate Dehydrogenase Troponin T C-Reactive Protein NT-Pro-B Natriuret Pep Total Protein Albumin LDL Cholesterol Direct Vitamin B12 Crossmatch 11/10/21 11/10/21 11/10/21 04:00 04:00 05:35 WBC 16.0 H RBC 3.61 L Hgb 8.0 L Hct 27.1 L MCV 75 L MCH 22 L MCHC RDW 20.4 H Plt Count Seg Neuts % (Manual) Lymphocytes % (Manual) Seg Neutrophils # Man Lymphocytes # (Manual) Monocytes # (Manual) PT INR D-Dimer ABG pH ABG pO2 ABG HCO3 ABG O2 Saturation ABG Base Excess ABG Hemoglobin Oxyhemoglobin Sodium 149 H Potassium Chloride 114.1 H Carbon Dioxide BUN 31 H Creatinine Glucose 148 H POC Glucose 132 H Lactic Acid Calcium 8.2 L Phosphorus Magnesium AST ALT Alkaline Phosphatase Lactate Dehydrogenase Troponin T C-Reactive Protein NT-Pro-B Natriuret Pep Total Protein Albumin LDL Cholesterol Direct Vitamin B12 Crossmatch 11/10/21 11/10/21 11/10/21 11:31 14:08 15:35 WBC RBC Hgb Hct MCV MCH MCHC RDW Plt Count Seg Neuts % (Manual) Lymphocytes % (Manual) Seg Neutrophils # Man Lymphocytes # (Manual) Monocytes # (Manual) PT INR D-Dimer ABG pH ABG pO2 126.6 H ABG HCO3 ABG O2 Saturation ABG Base Excess ABG Hemoglobin 7.4 L Oxyhemoglobin Sodium Potassium Chloride Carbon Dioxide BUN Creatinine Glucose POC Glucose 147 H Lactic Acid Calcium Phosphorus Magnesium AST ALT Alkaline Phosphatase Lactate Dehydrogenase Troponin T C-Reactive Protein NT-Pro-B Natriuret Pep Total Protein Albumin LDL Cholesterol Direct Vitamin B12 1823 H Crossmatch 11/10/21 11/11/21 11/11/21 17:53 00:55 04:28 WBC RBC Hgb Hct MCV MCH MCHC RDW Plt Count Seg Neuts % (Manual) Lymphocytes % (Manual) Seg Neutrophils # Man Lymphocytes # (Manual) Monocytes # (Manual) PT INR D-Dimer ABG pH ABG pO2 ABG HCO3 ABG O2 Saturation ABG Base Excess ABG Hemoglobin Oxyhemoglobin Sodium 149 H Potassium Chloride 112.2 H Carbon Dioxide BUN 34 H Creatinine Glucose 148 H POC Glucose 140 H 145 H Lactic Acid Calcium 7.9 L Phosphorus Magnesium AST 53 H ALT 203 H Alkaline Phosphatase Lactate Dehydrogenase Troponin T C-Reactive Protein NT-Pro-B Natriuret Pep Total Protein 4.9 L Albumin 2.6 L LDL Cholesterol Direct Vitamin B12 Crossmatch 11/11/21 11/11/21 11/11/21 04:28 04:28 05:28 WBC 20.9 H RBC 3.47 L Hgb 7.5 L Hct 26.0 L MCV 75 L MCH 22 L MCHC 29 L RDW 21.6 H Plt Count 132 L Seg Neuts % (Manual) Lymphocytes % (Manual) Seg Neutrophils # Man Lymphocytes # (Manual) Monocytes # (Manual) PT INR D-Dimer 2655.00 H ABG pH ABG pO2 ABG HCO3 ABG O2 Saturation ABG Base Excess ABG Hemoglobin Oxyhemoglobin Sodium Potassium Chloride Carbon Dioxide BUN Creatinine Glucose POC Glucose 154 H Lactic Acid Calcium Phosphorus Magnesium AST ALT Alkaline Phosphatase Lactate Dehydrogenase Troponin T C-Reactive Protein NT-Pro-B Natriuret Pep Total Protein Albumin LDL Cholesterol Direct Vitamin B12 Crossmatch 11/11/21 11/11/21 11/12/21 12:38 18:13 00:14 WBC RBC Hgb Hct MCV MCH MCHC RDW Plt Count Seg Neuts % (Manual) Lymphocytes % (Manual) Seg Neutrophils # Man Lymphocytes # (Manual) Monocytes # (Manual) PT INR D-Dimer ABG pH ABG pO2 ABG HCO3 ABG O2 Saturation ABG Base Excess ABG Hemoglobin Oxyhemoglobin Sodium Potassium Chloride Carbon Dioxide BUN Creatinine Glucose POC Glucose 137 H 108 H 137 H Lactic Acid Calcium Phosphorus Magnesium AST ALT Alkaline Phosphatase Lactate Dehydrogenase Troponin T C-Reactive Protein NT-Pro-B Natriuret Pep Total Protein Albumin LDL Cholesterol Direct Vitamin B12 Crossmatch 11/12/21 11/12/21 11/12/21 05:40 06:24 11:12 WBC RBC Hgb Hct MCV MCH MCHC RDW Plt Count Seg Neuts % (Manual) Lymphocytes % (Manual) Seg Neutrophils # Man Lymphocytes # (Manual) Monocytes # (Manual) PT INR D-Dimer ABG pH 7.586 H ABG pO2 150.6 H ABG HCO3 27.2 H ABG O2 Saturation 99.1 H ABG Base Excess 5.2 H ABG Hemoglobin 7.5 L Oxyhemoglobin Sodium Potassium Chloride Carbon Dioxide BUN Creatinine Glucose POC Glucose 132 H 140 H Lactic Acid Calcium Phosphorus Magnesium AST ALT Alkaline Phosphatase Lactate Dehydrogenase Troponin T C-Reactive Protein NT-Pro-B Natriuret Pep Total Protein Albumin LDL Cholesterol Direct Vitamin B12 Crossmatch 11/12/21 11/12/21 11/12/21 14:50 14:50 17:13 WBC 19.8 H RBC 3.27 L Hgb 7.1 L Hct 24.5 L MCV 75 L MCH 22 L MCHC 29 L RDW 22.3 H Plt Count Seg Neuts % (Manual) Lymphocytes % (Manual) Seg Neutrophils # Man Lymphocytes # (Manual) Monocytes # (Manual) PT INR D-Dimer ABG pH ABG pO2 ABG HCO3 ABG O2 Saturation ABG Base Excess ABG Hemoglobin Oxyhemoglobin Sodium 150 H Potassium 3.3 L Chloride 112.0 H Carbon Dioxide BUN 40 H Creatinine Glucose 151 H POC Glucose 121 H Lactic Acid Calcium 7.4 L Phosphorus 1.70 L Magnesium 1.40 L AST ALT Alkaline Phosphatase Lactate Dehydrogenase Troponin T C-Reactive Protein NT-Pro-B Natriuret Pep Total Protein Albumin LDL Cholesterol Direct Vitamin B12 Crossmatch 11/12/21 11/13/21 11/13/21 23:19 05:34 06:30 WBC RBC Hgb Hct MCV MCH MCHC RDW Plt Count Seg Neuts % (Manual) Lymphocytes % (Manual) Seg Neutrophils # Man Lymphocytes # (Manual) Monocytes # (Manual) PT INR D-Dimer ABG pH ABG pO2 ABG HCO3 ABG O2 Saturation ABG Base Excess ABG Hemoglobin Oxyhemoglobin Sodium 149 H Potassium Chloride 60.0 L Carbon Dioxide BUN 40 H Creatinine Glucose 146 H POC Glucose 113 H 132 H Lactic Acid Calcium 7.3 L Phosphorus Magnesium 2.40 H AST ALT 72 H Alkaline Phosphatase Lactate Dehydrogenase Troponin T C-Reactive Protein NT-Pro-B Natriuret Pep Total Protein 5.2 L Albumin 2.2 L LDL Cholesterol Direct Vitamin B12 Crossmatch 11/13/21 11/13/21 11/13/21 06:30 08:30 11:19 WBC 21.2 H RBC 3.12 L Hgb 6.8 L Hct 23.2 L MCV 74 L MCH 22 L MCHC 29 L RDW 22.2 H Plt Count 135 L Seg Neuts % (Manual) Lymphocytes % (Manual) Seg Neutrophils # Man Lymphocytes # (Manual) Monocytes # (Manual) PT INR D-Dimer ABG pH ABG pO2 ABG HCO3 ABG O2 Saturation ABG Base Excess ABG Hemoglobin Oxyhemoglobin Sodium Potassium Chloride Carbon Dioxide BUN Creatinine Glucose POC Glucose 136 H Lactic Acid Calcium Phosphorus Magnesium AST ALT Alkaline Phosphatase Lactate Dehydrogenase Troponin T C-Reactive Protein NT-Pro-B Natriuret Pep Total Protein Albumin LDL Cholesterol Direct Vitamin B12 Crossmatch See Detail 11/13/21 11/14/21 11/14/21 18:21 00:01 04:46 WBC 20.0 H RBC 3.41 L Hgb 7.9 L Hct 26.8 L MCV MCH 23 L MCHC 29 L RDW 24.0 H Plt Count Seg Neuts % (Manual) Lymphocytes % (Manual) Seg Neutrophils # Man Lymphocytes # (Manual) Monocytes # (Manual) PT INR D-Dimer ABG pH ABG pO2 ABG HCO3 ABG O2 Saturation ABG Base Excess ABG Hemoglobin Oxyhemoglobin Sodium Potassium Chloride Carbon Dioxide BUN Creatinine Glucose POC Glucose 149 H 141 H Lactic Acid Calcium Phosphorus Magnesium AST ALT Alkaline Phosphatase Lactate Dehydrogenase Troponin T C-Reactive Protein NT-Pro-B Natriuret Pep Total Protein Albumin LDL Cholesterol Direct Vitamin B12 Crossmatch 11/14/21 11/14/21 11/14/21 04:46 05:10 11:10 WBC RBC Hgb Hct MCV MCH MCHC RDW Plt Count Seg Neuts % (Manual) Lymphocytes % (Manual) Seg Neutrophils # Man Lymphocytes # (Manual) Monocytes # (Manual) PT INR D-Dimer ABG pH ABG pO2 ABG HCO3 ABG O2 Saturation ABG Base Excess ABG Hemoglobin Oxyhemoglobin Sodium 148 H Potassium Chloride 113.1 H Carbon Dioxide BUN 43 H Creatinine Glucose 140 H POC Glucose 132 H 133 H Lactic Acid Calcium 7.5 L Phosphorus Magnesium AST ALT Alkaline Phosphatase Lactate Dehydrogenase Troponin T C-Reactive Protein NT-Pro-B Natriuret Pep Total Protein Albumin LDL Cholesterol Direct Vitamin B12 Crossmatch 11/14/21 11/14/21 11/14/21 16:14 17:48 23:23 WBC RBC Hgb Hct MCV MCH MCHC RDW Plt Count Seg Neuts % (Manual) Lymphocytes % (Manual) Seg Neutrophils # Man Lymphocytes # (Manual) Monocytes # (Manual) PT INR D-Dimer ABG pH ABG pO2 ABG HCO3 28.0 H ABG O2 Saturation ABG Base Excess 3.1 H ABG Hemoglobin 5.8 L Oxyhemoglobin 94.8 L Sodium Potassium Chloride Carbon Dioxide BUN Creatinine Glucose POC Glucose 130 H 136 H Lactic Acid Calcium Phosphorus Magnesium AST ALT Alkaline Phosphatase Lactate Dehydrogenase Troponin T C-Reactive Protein NT-Pro-B Natriuret Pep Total Protein Albumin LDL Cholesterol Direct Vitamin B12 Crossmatch 11/15/21 11/15/21 11/15/21 05:20 05:50 05:50 WBC 19.9 H RBC 3.50 L Hgb 8.2 L Hct 27.9 L MCV MCH 23 L MCHC 29 L RDW 24.9 H Plt Count Seg Neuts % (Manual) Lymphocytes % (Manual) Seg Neutrophils # Man Lymphocytes # (Manual) Monocytes # (Manual) PT INR D-Dimer ABG pH ABG pO2 ABG HCO3 ABG O2 Saturation ABG Base Excess ABG Hemoglobin Oxyhemoglobin Sodium 149 H Potassium Chloride 112.0 H Carbon Dioxide BUN 48 H Creatinine Glucose 152 H POC Glucose 137 H Lactic Acid Calcium 7.9 L Phosphorus Magnesium AST ALT Alkaline Phosphatase Lactate Dehydrogenase Troponin T C-Reactive Protein NT-Pro-B Natriuret Pep Total Protein Albumin LDL Cholesterol Direct Vitamin B12 Crossmatch 11/15/21 11/15/21 11/15/21 12:12 17:07 23:24 WBC RBC Hgb Hct MCV MCH MCHC RDW Plt Count Seg Neuts % (Manual) Lymphocytes % (Manual) Seg Neutrophils # Man Lymphocytes # (Manual) Monocytes # (Manual) PT INR D-Dimer ABG pH ABG pO2 ABG HCO3 ABG O2 Saturation ABG Base Excess ABG Hemoglobin Oxyhemoglobin Sodium Potassium Chloride Carbon Dioxide BUN Creatinine Glucose POC Glucose 114 H 135 H 123 H Lactic Acid Calcium Phosphorus Magnesium AST ALT Alkaline Phosphatase Lactate Dehydrogenase Troponin T C-Reactive Protein NT-Pro-B Natriuret Pep Total Protein Albumin LDL Cholesterol Direct Vitamin B12 Crossmatch 11/16/21 11/16/21 11/16/21 05:21 10:00 10:00 WBC 21.7 H RBC 2.57 L Hgb 6.0 L Hct 20.2 L D MCV MCH 24 L MCHC RDW 26.3 H Plt Count Seg Neuts % (Manual) Lymphocytes % (Manual) Seg Neutrophils # Man Lymphocytes # (Manual) Monocytes # (Manual) PT INR D-Dimer ABG pH ABG pO2 ABG HCO3 ABG O2 Saturation ABG Base Excess ABG Hemoglobin Oxyhemoglobin Sodium 153 H Potassium Chloride 114.9 H Carbon Dioxide BUN 74 H Creatinine Glucose 155 H POC Glucose 127 H Lactic Acid Calcium 8.1 L Phosphorus Magnesium AST ALT Alkaline Phosphatase Lactate Dehydrogenase Troponin T C-Reactive Protein NT-Pro-B Natriuret Pep Total Protein Albumin LDL Cholesterol Direct Vitamin B12 Crossmatch 11/16/21 11/16/21 11/16/21 11:34 14:00 15:25 WBC 17.2 H RBC 2.08 L Hgb 4.7 L* Hct 16.2 L* MCV 78 L MCH 23 L MCHC 29 L RDW 26.0 H Plt Count Seg Neuts % (Manual) 87.0 H Lymphocytes % (Manual) 8.0 L Seg Neutrophils # Man 15.0 H Lymphocytes # (Manual) Monocytes # (Manual) 0.9 H PT INR D-Dimer ABG pH ABG pO2 ABG HCO3 ABG O2 Saturation ABG Base Excess ABG Hemoglobin Oxyhemoglobin Sodium Potassium Chloride Carbon Dioxide BUN Creatinine Glucose POC Glucose 131 H Lactic Acid Calcium Phosphorus Magnesium AST ALT Alkaline Phosphatase Lactate Dehydrogenase Troponin T C-Reactive Protein NT-Pro-B Natriuret Pep Total Protein Albumin LDL Cholesterol Direct Vitamin B12 Crossmatch See Detail 11/16/21 11/16/21 11/16/21 15:25 17:21 22:43 WBC RBC Hgb 8.6 L D Hct 27.7 L D MCV MCH MCHC RDW Plt Count Seg Neuts % (Manual) Lymphocytes % (Manual) Seg Neutrophils # Man Lymphocytes # (Manual) Monocytes # (Manual) PT INR D-Dimer ABG pH ABG pO2 ABG HCO3 ABG O2 Saturation ABG Base Excess ABG Hemoglobin Oxyhemoglobin Sodium 148 H Potassium Chloride 113.2 H Carbon Dioxide BUN 84 H Creatinine Glucose 164 H POC Glucose 124 H Lactic Acid Calcium 7.6 L Phosphorus Magnesium AST ALT Alkaline Phosphatase Lactate Dehydrogenase Troponin T C-Reactive Protein NT-Pro-B Natriuret Pep Total Protein Albumin LDL Cholesterol Direct Vitamin B12 Crossmatch 11/16/21 11/17/21 11/17/21 23:07 05:33 05:56 WBC 25.1 H RBC 3.47 L Hgb 8.7 L Hct 28.5 L MCV MCH 25 L MCHC RDW 22.3 H Plt Count Seg Neuts % (Manual) Lymphocytes % (Manual) Seg Neutrophils # Man Lymphocytes # (Manual) Monocytes # (Manual) PT INR D-Dimer ABG pH ABG pO2 ABG HCO3 ABG O2 Saturation ABG Base Excess ABG Hemoglobin Oxyhemoglobin Sodium Potassium Chloride Carbon Dioxide BUN Creatinine Glucose POC Glucose 128 H 133 H Lactic Acid Calcium Phosphorus Magnesium AST ALT Alkaline Phosphatase Lactate Dehydrogenase Troponin T C-Reactive Protein NT-Pro-B Natriuret Pep Total Protein Albumin LDL Cholesterol Direct Vitamin B12 Crossmatch 11/17/21 11/17/21 11/17/21 05:56 11:00 11:55 WBC RBC Hgb 8.3 L Hct 26.9 L MCV MCH MCHC RDW Plt Count Seg Neuts % (Manual) Lymphocytes % (Manual) Seg Neutrophils # Man Lymphocytes # (Manual) Monocytes # (Manual) PT INR D-Dimer ABG pH ABG pO2 ABG HCO3 ABG O2 Saturation ABG Base Excess ABG Hemoglobin Oxyhemoglobin Sodium 151 H Potassium Chloride 113.6 H Carbon Dioxide BUN 85 H Creatinine Glucose 132 H POC Glucose 121 H Lactic Acid Calcium 7.8 L Phosphorus Magnesium AST ALT Alkaline Phosphatase Lactate Dehydrogenase Troponin T C-Reactive Protein NT-Pro-B Natriuret Pep Total Protein 5.1 L Albumin 2.2 L LDL Cholesterol Direct Vitamin B12 Crossmatch 11/17/21 11/17/21 11/18/21 18:04 18:55 00:26 WBC RBC Hgb 7.5 L 7.1 L Hct 24.8 L 23.6 L MCV MCH MCHC RDW Plt Count Seg Neuts % (Manual) Lymphocytes % (Manual) Seg Neutrophils # Man Lymphocytes # (Manual) Monocytes # (Manual) PT INR D-Dimer ABG pH ABG pO2 ABG HCO3 ABG O2 Saturation ABG Base Excess ABG Hemoglobin Oxyhemoglobin Sodium Potassium Chloride Carbon Dioxide BUN Creatinine Glucose POC Glucose 144 H Lactic Acid Calcium Phosphorus Magnesium AST ALT Alkaline Phosphatase Lactate Dehydrogenase Troponin T C-Reactive Protein NT-Pro-B Natriuret Pep Total Protein Albumin LDL Cholesterol Direct Vitamin B12 Crossmatch 11/18/21 11/18/21 11/18/21 00:43 05:10 05:10 WBC 12.5 H RBC 2.39 L Hgb 6.1 L Hct 20.2 L MCV MCH 25 L MCHC RDW 23.2 H Plt Count Seg Neuts % (Manual) Lymphocytes % (Manual) Seg Neutrophils # Man Lymphocytes # (Manual) Monocytes # (Manual) PT INR D-Dimer ABG pH ABG pO2 ABG HCO3 ABG O2 Saturation ABG Base Excess ABG Hemoglobin Oxyhemoglobin Sodium 131 L D Potassium 2.9 L* D Chloride 97.8 L Carbon Dioxide BUN 58 H Creatinine Glucose 665 H* POC Glucose 139 H Lactic Acid Calcium 7.0 L Phosphorus 2.20 L D Magnesium 1.50 L AST ALT Alkaline Phosphatase Lactate Dehydrogenase Troponin T C-Reactive Protein NT-Pro-B Natriuret Pep Total Protein Albumin LDL Cholesterol Direct Vitamin B12 Crossmatch 11/18/21 11/18/21 11/18/21 05:23 07:10 10:45 WBC RBC Hgb Hct MCV MCH MCHC RDW Plt Count Seg Neuts % (Manual) Lymphocytes % (Manual) Seg Neutrophils # Man Lymphocytes # (Manual) Monocytes # (Manual) PT INR D-Dimer ABG pH ABG pO2 ABG HCO3 ABG O2 Saturation ABG Base Excess ABG Hemoglobin Oxyhemoglobin Sodium 148 H D Potassium 3.1 L Chloride 111.9 H Carbon Dioxide BUN 63 H Creatinine Glucose 141 H POC Glucose 124 H Lactic Acid Calcium 8.1 L D Phosphorus Magnesium AST ALT Alkaline Phosphatase Lactate Dehydrogenase Troponin T C-Reactive Protein NT-Pro-B Natriuret Pep Total Protein Albumin LDL Cholesterol Direct Vitamin B12 Crossmatch See Detail 11/18/21 11/19/21 11/19/21 11:57 00:19 04:55 WBC RBC 3.35 L Hgb 9.0 L 8.9 L Hct 28.3 L D 28.1 L MCV MCH 27 L MCHC RDW 20.3 H Plt Count Seg Neuts % (Manual) Lymphocytes % (Manual) Seg Neutrophils # Man Lymphocytes # (Manual) Monocytes # (Manual) PT INR D-Dimer ABG pH ABG pO2 ABG HCO3 ABG O2 Saturation ABG Base Excess ABG Hemoglobin Oxyhemoglobin Sodium Potassium Chloride Carbon Dioxide BUN Creatinine Glucose POC Glucose 119 H Lactic Acid Calcium Phosphorus Magnesium AST ALT Alkaline Phosphatase Lactate Dehydrogenase Troponin T C-Reactive Protein NT-Pro-B Natriuret Pep Total Protein Albumin LDL Cholesterol Direct Vitamin B12 Crossmatch 11/19/21 11/19/21 11/20/21 04:55 05:42 00:55 WBC RBC Hgb 9.0 L Hct 28.6 L MCV MCH MCHC RDW Plt Count Seg Neuts % (Manual) Lymphocytes % (Manual) Seg Neutrophils # Man Lymphocytes # (Manual) Monocytes # (Manual) PT INR D-Dimer ABG pH ABG pO2 ABG HCO3 ABG O2 Saturation ABG Base Excess ABG Hemoglobin Oxyhemoglobin Sodium Potassium 3.5 L Chloride 108.6 H Carbon Dioxide BUN 47 H Creatinine Glucose 207 H POC Glucose 63 L Lactic Acid Calcium 7.1 L Phosphorus Magnesium AST ALT Alkaline Phosphatase Lactate Dehydrogenase Troponin T C-Reactive Protein NT-Pro-B Natriuret Pep Total Protein Albumin LDL Cholesterol Direct Vitamin B12 Crossmatch 11/20/21 11/20/21 11/20/21 05:40 05:40 Unknown WBC RBC 3.40 L Hgb 9.1 L Hct 28.8 L MCV MCH 27 L MCHC RDW 20.7 H Plt Count Seg Neuts % (Manual) Lymphocytes % (Manual) Seg Neutrophils # Man Lymphocytes # (Manual) Monocytes # (Manual) PT INR D-Dimer ABG pH ABG pO2 ABG HCO3 ABG O2 Saturation ABG Base Excess -2.7 L ABG Hemoglobin 9.5 L Oxyhemoglobin 94.3 L Sodium Potassium 3.5 L Chloride 108.9 H Carbon Dioxide BUN 37 H Creatinine Glucose 117 H POC Glucose Lactic Acid Calcium 7.5 L Phosphorus Magnesium AST ALT Alkaline Phosphatase Lactate Dehydrogenase Troponin T C-Reactive Protein NT-Pro-B Natriuret Pep Total Protein Albumin LDL Cholesterol Direct Vitamin B12 Crossmatch 11/21/21 11/21/21 11/21/21 04:30 04:30 16:00 WBC RBC 3.25 L Hgb 8.6 L Hct 28.1 L MCV MCH 26 L MCHC RDW 20.7 H Plt Count Seg Neuts % (Manual) Lymphocytes % (Manual) Seg Neutrophils # Man Lymphocytes # (Manual) Monocytes # (Manual) PT INR D-Dimer ABG pH ABG pO2 114.2 H ABG HCO3 ABG O2 Saturation ABG Base Excess ABG Hemoglobin 9.1 L Oxyhemoglobin Sodium 134 L Potassium Chloride Carbon Dioxide 20 L BUN 34 H Creatinine Glucose POC Glucose Lactic Acid Calcium 7.1 L Phosphorus Magnesium AST ALT Alkaline Phosphatase Lactate Dehydrogenase Troponin T C-Reactive Protein NT-Pro-B Natriuret Pep Total Protein Albumin LDL Cholesterol Direct Vitamin B12 Crossmatch 11/22/21 11/22/21 11/22/21 07:07 07:07 23:54 WBC RBC 3.30 L Hgb 9.0 L Hct 28.5 L MCV MCH 27 L MCHC RDW 21.0 H Plt Count Seg Neuts % (Manual) Lymphocytes % (Manual) Seg Neutrophils # Man Lymphocytes # (Manual) Monocytes # (Manual) PT INR D-Dimer ABG pH ABG pO2 ABG HCO3 ABG O2 Saturation ABG Base Excess ABG Hemoglobin Oxyhemoglobin Sodium Potassium Chloride Carbon Dioxide BUN 32 H Creatinine Glucose 106 H POC Glucose 110 H Lactic Acid Calcium 7.5 L Phosphorus Magnesium AST ALT Alkaline Phosphatase Lactate Dehydrogenase Troponin T C-Reactive Protein NT-Pro-B Natriuret Pep Total Protein Albumin LDL Cholesterol Direct Vitamin B12 Crossmatch 11/23/21 11/23/21 11/23/21 04:38 04:38 06:01 WBC RBC 3.23 L Hgb 8.8 L Hct 28.0 L MCV MCH 27 L MCHC RDW 21.3 H Plt Count Seg Neuts % (Manual) Lymphocytes % (Manual) Seg Neutrophils # Man Lymphocytes # (Manual) Monocytes # (Manual) PT INR D-Dimer ABG pH ABG pO2 ABG HCO3 ABG O2 Saturation ABG Base Excess ABG Hemoglobin Oxyhemoglobin Sodium 136 L Potassium Chloride Carbon Dioxide 20 L BUN 32 H Creatinine Glucose 109 H POC Glucose 115 H Lactic Acid Calcium 7.7 L Phosphorus Magnesium AST ALT Alkaline Phosphatase Lactate Dehydrogenase Troponin T C-Reactive Protein NT-Pro-B Natriuret Pep Total Protein Albumin LDL Cholesterol Direct Vitamin B12 Crossmatch 11/23/21 11/24/21 11/24/21 11:40 00:03 04:13 WBC RBC 3.18 L Hgb 8.5 L Hct 27.5 L MCV MCH 27 L MCHC RDW 21.6 H Plt Count Seg Neuts % (Manual) Lymphocytes % (Manual) Seg Neutrophils # Man Lymphocytes # (Manual) Monocytes # (Manual) PT INR D-Dimer ABG pH ABG pO2 ABG HCO3 ABG O2 Saturation ABG Base Excess ABG Hemoglobin Oxyhemoglobin Sodium Potassium Chloride Carbon Dioxide BUN Creatinine Glucose POC Glucose 117 H 111 H Lactic Acid Calcium Phosphorus Magnesium AST ALT Alkaline Phosphatase Lactate Dehydrogenase Troponin T C-Reactive Protein NT-Pro-B Natriuret Pep Total Protein Albumin LDL Cholesterol Direct Vitamin B12 Crossmatch 11/24/21 11/24/21 11/24/21 04:13 05:30 11:10 WBC RBC Hgb Hct MCV MCH MCHC RDW Plt Count Seg Neuts % (Manual) Lymphocytes % (Manual) Seg Neutrophils # Man Lymphocytes # (Manual) Monocytes # (Manual) PT INR D-Dimer ABG pH ABG pO2 ABG HCO3 ABG O2 Saturation ABG Base Excess ABG Hemoglobin Oxyhemoglobin Sodium Potassium Chloride Carbon Dioxide BUN 31 H Creatinine Glucose 101 H POC Glucose 115 H 107 H Lactic Acid Calcium 7.7 L Phosphorus Magnesium AST ALT Alkaline Phosphatase Lactate Dehydrogenase Troponin T C-Reactive Protein NT-Pro-B Natriuret Pep Total Protein Albumin LDL Cholesterol Direct Vitamin B12 Crossmatch 11/24/21 11/24/21 11/25/21 16:34 17:57 05:12 WBC RBC 3.11 L Hgb 8.2 L Hct 26.6 L MCV MCH 26 L MCHC RDW 21.3 H Plt Count Seg Neuts % (Manual) Lymphocytes % (Manual) Seg Neutrophils # Man Lymphocytes # (Manual) Monocytes # (Manual) PT INR D-Dimer ABG pH ABG pO2 ABG HCO3 ABG O2 Saturation ABG Base Excess ABG Hemoglobin Oxyhemoglobin Sodium Potassium Chloride Carbon Dioxide BUN Creatinine Glucose POC Glucose 115 H 110 H Lactic Acid Calcium Phosphorus Magnesium AST ALT Alkaline Phosphatase Lactate Dehydrogenase Troponin T C-Reactive Protein NT-Pro-B Natriuret Pep Total Protein Albumin LDL Cholesterol Direct Vitamin B12 Crossmatch 11/25/21 11/25/21 11/26/21 05:12 11:20 05:00 WBC RBC 3.30 L Hgb 8.8 L Hct 28.2 L MCV MCH 27 L MCHC RDW 20.7 H Plt Count Seg Neuts % (Manual) Lymphocytes % (Manual) Seg Neutrophils # Man Lymphocytes # (Manual) Monocytes # (Manual) PT INR D-Dimer ABG pH ABG pO2 ABG HCO3 ABG O2 Saturation ABG Base Excess ABG Hemoglobin Oxyhemoglobin Sodium Potassium Chloride Carbon Dioxide BUN 32 H Creatinine Glucose 118 H POC Glucose 118 H Lactic Acid Calcium 8.2 L Phosphorus Magnesium AST ALT Alkaline Phosphatase Lactate Dehydrogenase Troponin T C-Reactive Protein NT-Pro-B Natriuret Pep Total Protein Albumin LDL Cholesterol Direct Vitamin B12 Crossmatch 11/26/21 11/26/21 11/26/21 05:00 05:00 05:44 WBC RBC Hgb Hct MCV MCH MCHC RDW Plt Count Seg Neuts % (Manual) Lymphocytes % (Manual) Seg Neutrophils # Man Lymphocytes # (Manual) Monocytes # (Manual) PT 16.9 H INR 1.24 H D-Dimer ABG pH ABG pO2 ABG HCO3 ABG O2 Saturation ABG Base Excess ABG Hemoglobin Oxyhemoglobin Sodium Potassium Chloride Carbon Dioxide BUN 31 H Creatinine Glucose 104 H POC Glucose 110 H Lactic Acid Calcium 7.9 L Phosphorus Magnesium AST ALT Alkaline Phosphatase Lactate Dehydrogenase Troponin T C-Reactive Protein NT-Pro-B Natriuret Pep Total Protein Albumin LDL Cholesterol Direct Vitamin B12 Crossmatch 11/26/21 11/27/21 11/27/21 23:55 07:40 07:40 WBC RBC 3.18 L Hgb 8.5 L Hct 27.0 L MCV MCH 27 L MCHC RDW 21.2 H Plt Count Seg Neuts % (Manual) Lymphocytes % (Manual) Seg Neutrophils # Man Lymphocytes # (Manual) Monocytes # (Manual) PT INR D-Dimer ABG pH ABG pO2 ABG HCO3 ABG O2 Saturation ABG Base Excess ABG Hemoglobin Oxyhemoglobin Sodium Potassium Chloride Carbon Dioxide BUN 27 H Creatinine Glucose 112 H POC Glucose 63 L Lactic Acid Calcium 7.6 L Phosphorus Magnesium AST ALT Alkaline Phosphatase Lactate Dehydrogenase Troponin T C-Reactive Protein NT-Pro-B Natriuret Pep Total Protein Albumin LDL Cholesterol Direct Vitamin B12 Crossmatch 11/27/21 11/27/21 11/27/21 12:04 13:40 13:40 WBC RBC 3.31 L Hgb 8.7 L Hct 28.0 L MCV MCH 26 L MCHC RDW 20.7 H Plt Count Seg Neuts % (Manual) Lymphocytes % (Manual) Seg Neutrophils # Man Lymphocytes # (Manual) Monocytes # (Manual) PT INR D-Dimer ABG pH ABG pO2 ABG HCO3 ABG O2 Saturation ABG Base Excess ABG Hemoglobin Oxyhemoglobin Sodium 136 L Potassium Chloride Carbon Dioxide BUN 25 H Creatinine Glucose 127 H POC Glucose 109 H Lactic Acid Calcium 7.6 L Phosphorus Magnesium 1.40 L AST ALT Alkaline Phosphatase Lactate Dehydrogenase Troponin T C-Reactive Protein NT-Pro-B Natriuret Pep Total Protein Albumin LDL Cholesterol Direct Vitamin B12 Crossmatch 11/27/21 11/27/21 11/28/21 17:44 23:33 12:20 WBC RBC Hgb Hct MCV MCH MCHC RDW Plt Count Seg Neuts % (Manual) Lymphocytes % (Manual) Seg Neutrophils # Man Lymphocytes # (Manual) Monocytes # (Manual) PT INR D-Dimer ABG pH ABG pO2 ABG HCO3 ABG O2 Saturation ABG Base Excess ABG Hemoglobin Oxyhemoglobin Sodium Potassium Chloride Carbon Dioxide BUN Creatinine Glucose POC Glucose 107 H 108 H 114 H Lactic Acid Calcium Phosphorus Magnesium AST ALT Alkaline Phosphatase Lactate Dehydrogenase Troponin T C-Reactive Protein NT-Pro-B Natriuret Pep Total Protein Albumin LDL Cholesterol Direct Vitamin B12 Crossmatch 11/29/21 11/29/21 11/29/21 00:09 03:20 03:20 WBC RBC 3.05 L Hgb 8.2 L Hct 25.8 L MCV MCH 27 L MCHC RDW 20.9 H Plt Count Seg Neuts % (Manual) Lymphocytes % (Manual) Seg Neutrophils # Man Lymphocytes # (Manual) Monocytes # (Manual) PT INR D-Dimer ABG pH ABG pO2 ABG HCO3 ABG O2 Saturation ABG Base Excess ABG Hemoglobin Oxyhemoglobin Sodium 133 L Potassium Chloride Carbon Dioxide BUN 24 H Creatinine Glucose 137 H POC Glucose 134 H Lactic Acid Calcium 7.4 L Phosphorus Magnesium AST ALT Alkaline Phosphatase Lactate Dehydrogenase Troponin T C-Reactive Protein NT-Pro-B Natriuret Pep Total Protein Albumin LDL Cholesterol Direct Vitamin B12 Crossmatch 11/29/21 11/29/21 11/29/21 05:38 11:39 17:11 WBC RBC Hgb Hct MCV MCH MCHC RDW Plt Count Seg Neuts % (Manual) Lymphocytes % (Manual) Seg Neutrophils # Man Lymphocytes # (Manual) Monocytes # (Manual) PT INR D-Dimer ABG pH ABG pO2 ABG HCO3 ABG O2 Saturation ABG Base Excess ABG Hemoglobin Oxyhemoglobin Sodium Potassium Chloride Carbon Dioxide BUN Creatinine Glucose POC Glucose 117 H 143 H 124 H Lactic Acid Calcium Phosphorus Magnesium AST ALT Alkaline Phosphatase Lactate Dehydrogenase Troponin T C-Reactive Protein NT-Pro-B Natriuret Pep Total Protein Albumin LDL Cholesterol Direct Vitamin B12 Crossmatch 11/29/21 11/30/21 11/30/21 20:15 05:40 05:40 WBC 12.6 H RBC 3.41 L Hgb 9.1 L Hct 28.9 L MCV MCH 27 L MCHC RDW 20.4 H Plt Count Seg Neuts % (Manual) Lymphocytes % (Manual) Seg Neutrophils # Man Lymphocytes # (Manual) Monocytes # (Manual) PT INR D-Dimer ABG pH ABG pO2 ABG HCO3 ABG O2 Saturation ABG Base Excess ABG Hemoglobin Oxyhemoglobin Sodium Potassium Chloride Carbon Dioxide BUN 24 H Creatinine Glucose 131 H POC Glucose Lactic Acid Calcium 7.6 L Phosphorus Magnesium AST ALT Alkaline Phosphatase Lactate Dehydrogenase Troponin T 0.045 H C-Reactive Protein NT-Pro-B Natriuret Pep Total Protein Albumin LDL Cholesterol Direct 25 L Vitamin B12 Crossmatch 11/30/21 11/30/21 12/01/21 11:29 16:51 05:00 WBC RBC 2.97 L Hgb 8.0 L Hct 25.0 L MCV MCH 27 L MCHC RDW 20.8 H Plt Count Seg Neuts % (Manual) Lymphocytes % (Manual) Seg Neutrophils # Man Lymphocytes # (Manual) Monocytes # (Manual) PT INR D-Dimer ABG pH ABG pO2 ABG HCO3 ABG O2 Saturation ABG Base Excess ABG Hemoglobin Oxyhemoglobin Sodium Potassium Chloride Carbon Dioxide BUN Creatinine Glucose POC Glucose 123 H 114 H Lactic Acid Calcium Phosphorus Magnesium AST ALT Alkaline Phosphatase Lactate Dehydrogenase Troponin T C-Reactive Protein NT-Pro-B Natriuret Pep Total Protein Albumin LDL Cholesterol Direct Vitamin B12 Crossmatch 12/01/21 12/01/21 12/01/21 05:00 05:25 11:54 WBC RBC Hgb Hct MCV MCH MCHC RDW Plt Count Seg Neuts % (Manual) Lymphocytes % (Manual) Seg Neutrophils # Man Lymphocytes # (Manual) Monocytes # (Manual) PT INR D-Dimer ABG pH ABG pO2 ABG HCO3 ABG O2 Saturation ABG Base Excess ABG Hemoglobin Oxyhemoglobin Sodium 136 L Potassium Chloride Carbon Dioxide BUN 24 H Creatinine Glucose 117 H POC Glucose 108 H 107 H Lactic Acid Calcium 7.5 L Phosphorus Magnesium 1.60 L AST ALT Alkaline Phosphatase Lactate Dehydrogenase Troponin T C-Reactive Protein NT-Pro-B Natriuret Pep Total Protein Albumin LDL Cholesterol Direct Vitamin B12 Crossmatch 12/01/21 12/02/21 12/02/21 17:40 00:07 04:20 WBC RBC 2.92 L Hgb 7.7 L Hct 24.3 L MCV MCH 26 L MCHC RDW 20.5 H Plt Count Seg Neuts % (Manual) Lymphocytes % (Manual) Seg Neutrophils # Man Lymphocytes # (Manual) Monocytes # (Manual) PT INR D-Dimer ABG pH ABG pO2 ABG HCO3 ABG O2 Saturation ABG Base Excess ABG Hemoglobin Oxyhemoglobin Sodium Potassium Chloride Carbon Dioxide BUN Creatinine Glucose POC Glucose 123 H 110 H Lactic Acid Calcium Phosphorus Magnesium AST ALT Alkaline Phosphatase Lactate Dehydrogenase Troponin T C-Reactive Protein NT-Pro-B Natriuret Pep Total Protein Albumin LDL Cholesterol Direct Vitamin B12 Crossmatch 12/02/21 12/02/21 12/02/21 04:20 11:17 18:20 WBC RBC Hgb Hct MCV MCH MCHC RDW Plt Count Seg Neuts % (Manual) Lymphocytes % (Manual) Seg Neutrophils # Man Lymphocytes # (Manual) Monocytes # (Manual) PT INR D-Dimer ABG pH ABG pO2 ABG HCO3 ABG O2 Saturation ABG Base Excess ABG Hemoglobin Oxyhemoglobin Sodium 135 L Potassium Chloride Carbon Dioxide BUN 26 H Creatinine Glucose 121 H POC Glucose 117 H 113 H Lactic Acid Calcium 7.4 L Phosphorus Magnesium AST ALT Alkaline Phosphatase Lactate Dehydrogenase Troponin T C-Reactive Protein NT-Pro-B Natriuret Pep Total Protein Albumin LDL Cholesterol Direct Vitamin B12 Crossmatch 12/03/21 12/03/21 12/03/21 00:12 04:00 04:00 WBC RBC 2.99 L Hgb 7.8 L Hct 24.6 L MCV MCH 26 L MCHC RDW 20.2 H Plt Count Seg Neuts % (Manual) Lymphocytes % (Manual) Seg Neutrophils # Man Lymphocytes # (Manual) Monocytes # (Manual) PT INR D-Dimer ABG pH ABG pO2 ABG HCO3 ABG O2 Saturation ABG Base Excess ABG Hemoglobin Oxyhemoglobin Sodium 136 L Potassium Chloride Carbon Dioxide BUN 27 H Creatinine Glucose 133 H POC Glucose 121 H Lactic Acid Calcium 7.5 L Phosphorus Magnesium AST ALT Alkaline Phosphatase Lactate Dehydrogenase Troponin T C-Reactive Protein NT-Pro-B Natriuret Pep Total Protein Albumin LDL Cholesterol Direct Vitamin B12 Crossmatch 12/03/21 12/03/21 12/03/21 06:30 11:13 16:00 WBC RBC Hgb Hct MCV MCH MCHC RDW Plt Count Seg Neuts % (Manual) Lymphocytes % (Manual) Seg Neutrophils # Man Lymphocytes # (Manual) Monocytes # (Manual) PT INR D-Dimer ABG pH ABG pO2 ABG HCO3 ABG O2 Saturation ABG Base Excess ABG Hemoglobin Oxyhemoglobin Sodium Potassium Chloride Carbon Dioxide BUN Creatinine Glucose POC Glucose 129 H 125 H 125 H Lactic Acid Calcium Phosphorus Magnesium AST ALT Alkaline Phosphatase Lactate Dehydrogenase Troponin T C-Reactive Protein NT-Pro-B Natriuret Pep Total Protein Albumin LDL Cholesterol Direct Vitamin B12 Crossmatch 12/03/21 12/04/21 12/04/21 23:32 04:00 05:36 WBC RBC Hgb Hct MCV MCH MCHC RDW Plt Count Seg Neuts % (Manual) Lymphocytes % (Manual) Seg Neutrophils # Man Lymphocytes # (Manual) Monocytes # (Manual) PT INR D-Dimer ABG pH ABG pO2 ABG HCO3 ABG O2 Saturation ABG Base Excess ABG Hemoglobin Oxyhemoglobin Sodium Potassium 3.5 L Chloride Carbon Dioxide BUN 26 H Creatinine 0.5 L Glucose 151 H POC Glucose 133 H 142 H Lactic Acid Calcium 8.3 L Phosphorus Magnesium AST ALT Alkaline Phosphatase Lactate Dehydrogenase Troponin T C-Reactive Protein NT-Pro-B Natriuret Pep Total Protein Albumin LDL Cholesterol Direct Vitamin B12 Crossmatch 12/04/21 12/04/21 12/05/21 11:24 15:58 04:36 WBC RBC Hgb Hct MCV MCH MCHC RDW Plt Count Seg Neuts % (Manual) Lymphocytes % (Manual) Seg Neutrophils # Man Lymphocytes # (Manual) Monocytes # (Manual) PT INR D-Dimer ABG pH ABG pO2 ABG HCO3 ABG O2 Saturation ABG Base Excess ABG Hemoglobin Oxyhemoglobin Sodium Potassium Chloride Carbon Dioxide BUN 21 H Creatinine 0.5 L Glucose 119 H POC Glucose 130 H 111 H Lactic Acid Calcium 8.3 L Phosphorus Magnesium AST ALT Alkaline Phosphatase Lactate Dehydrogenase Troponin T C-Reactive Protein NT-Pro-B Natriuret Pep Total Protein Albumin LDL Cholesterol Direct Vitamin B12 Crossmatch 12/05/21 12/05/21 12/05/21 05:15 10:40 11:12 WBC RBC 2.98 L Hgb 8.1 L Hct 24.6 L MCV MCH 27 L MCHC RDW 20.8 H Plt Count Seg Neuts % (Manual) Lymphocytes % (Manual) Seg Neutrophils # Man Lymphocytes # (Manual) Monocytes # (Manual) PT INR D-Dimer ABG pH ABG pO2 ABG HCO3 ABG O2 Saturation ABG Base Excess ABG Hemoglobin Oxyhemoglobin Sodium Potassium Chloride Carbon Dioxide BUN Creatinine Glucose POC Glucose 107 H 110 H Lactic Acid Calcium Phosphorus Magnesium AST ALT Alkaline Phosphatase Lactate Dehydrogenase Troponin T C-Reactive Protein NT-Pro-B Natriuret Pep Total Protein Albumin LDL Cholesterol Direct Vitamin B12 Crossmatch 12/05/21 12/06/21 12/06/21 23:39 04:25 04:25 WBC RBC 2.95 L Hgb 7.9 L Hct 24.7 L MCV MCH 27 L MCHC RDW 20.9 H Plt Count Seg Neuts % (Manual) Lymphocytes % (Manual) Seg Neutrophils # Man Lymphocytes # (Manual) Monocytes # (Manual) PT INR D-Dimer ABG pH ABG pO2 ABG HCO3 ABG O2 Saturation ABG Base Excess ABG Hemoglobin Oxyhemoglobin Sodium Potassium Chloride Carbon Dioxide BUN 22 H Creatinine 0.5 L Glucose 136 H POC Glucose 118 H Lactic Acid Calcium 8.2 L Phosphorus Magnesium AST ALT Alkaline Phosphatase Lactate Dehydrogenase Troponin T C-Reactive Protein NT-Pro-B Natriuret Pep Total Protein Albumin LDL Cholesterol Direct Vitamin B12 Crossmatch 12/06/21 12/06/21 12/07/21 05:28 11:27 04:00 WBC RBC Hgb 7.2 L Hct 21.8 L MCV MCH MCHC RDW Plt Count Seg Neuts % (Manual) Lymphocytes % (Manual) Seg Neutrophils # Man Lymphocytes # (Manual) Monocytes # (Manual) PT INR D-Dimer ABG pH ABG pO2 ABG HCO3 ABG O2 Saturation ABG Base Excess ABG Hemoglobin Oxyhemoglobin Sodium Potassium Chloride Carbon Dioxide BUN Creatinine Glucose POC Glucose 142 H 126 H Lactic Acid Calcium Phosphorus Magnesium AST ALT Alkaline Phosphatase Lactate Dehydrogenase Troponin T C-Reactive Protein NT-Pro-B Natriuret Pep Total Protein Albumin LDL Cholesterol Direct Vitamin B12 Crossmatch 12/07/21 12/07/21 12/07/21 04:00 05:30 11:12 WBC RBC Hgb Hct MCV MCH MCHC RDW Plt Count Seg Neuts % (Manual) Lymphocytes % (Manual) Seg Neutrophils # Man Lymphocytes # (Manual) Monocytes # (Manual) PT INR D-Dimer ABG pH ABG pO2 ABG HCO3 ABG O2 Saturation ABG Base Excess ABG Hemoglobin Oxyhemoglobin Sodium Potassium Chloride Carbon Dioxide BUN 22 H Creatinine Glucose 119 H POC Glucose 121 H 124 H Lactic Acid Calcium 8.0 L Phosphorus Magnesium AST ALT Alkaline Phosphatase Lactate Dehydrogenase Troponin T C-Reactive Protein NT-Pro-B Natriuret Pep Total Protein Albumin LDL Cholesterol Direct Vitamin B12 Crossmatch 12/08/21 12/08/21 12/08/21 04:00 04:00 05:39 WBC RBC 2.81 L Hgb 7.7 L Hct 23.5 L MCV MCH MCHC RDW 21.2 H Plt Count Seg Neuts % (Manual) Lymphocytes % (Manual) Seg Neutrophils # Man Lymphocytes # (Manual) Monocytes # (Manual) PT INR D-Dimer ABG pH ABG pO2 ABG HCO3 ABG O2 Saturation ABG Base Excess ABG Hemoglobin Oxyhemoglobin Sodium 135 L Potassium Chloride Carbon Dioxide BUN 23 H Creatinine Glucose 109 H POC Glucose 112 H Lactic Acid Calcium Phosphorus Magnesium AST ALT Alkaline Phosphatase Lactate Dehydrogenase Troponin T C-Reactive Protein NT-Pro-B Natriuret Pep Total Protein Albumin LDL Cholesterol Direct Vitamin B12 Crossmatch 12/08/21 12/09/21 12/09/21 11:03 04:20 04:20 WBC RBC 2.67 L Hgb 7.6 L Hct 22.1 L MCV MCH MCHC RDW 20.8 H Plt Count Seg Neuts % (Manual) Lymphocytes % (Manual) Seg Neutrophils # Man Lymphocytes # (Manual) Monocytes # (Manual) PT INR D-Dimer ABG pH ABG pO2 ABG HCO3 ABG O2 Saturation ABG Base Excess ABG Hemoglobin Oxyhemoglobin Sodium 135 L Potassium Chloride 97.8 L Carbon Dioxide BUN 26 H Creatinine Glucose 119 H POC Glucose 108 H Lactic Acid Calcium 7.7 L Phosphorus Magnesium AST ALT Alkaline Phosphatase Lactate Dehydrogenase Troponin T C-Reactive Protein NT-Pro-B Natriuret Pep Total Protein Albumin LDL Cholesterol Direct Vitamin B12 Crossmatch 12/09/21 12/10/21 12/10/21 11:26 04:33 11:12 WBC RBC Hgb Hct MCV MCH MCHC RDW Plt Count Seg Neuts % (Manual) Lymphocytes % (Manual) Seg Neutrophils # Man Lymphocytes # (Manual) Monocytes # (Manual) PT INR D-Dimer ABG pH ABG pO2 ABG HCO3 ABG O2 Saturation ABG Base Excess ABG Hemoglobin Oxyhemoglobin Sodium 136 L Potassium Chloride Carbon Dioxide BUN 27 H Creatinine Glucose 117 H POC Glucose 110 H 117 H Lactic Acid Calcium 8.2 L Phosphorus Magnesium AST ALT Alkaline Phosphatase Lactate Dehydrogenase Troponin T C-Reactive Protein NT-Pro-B Natriuret Pep Total Protein Albumin LDL Cholesterol Direct Vitamin B12 Crossmatch 12/10/21 12/10/21 12/11/21 16:02 23:31 04:35 WBC RBC 2.57 L Hgb 7.0 L Hct 21.4 L MCV MCH 27 L MCHC RDW 21.1 H Plt Count Seg Neuts % (Manual) Lymphocytes % (Manual) Seg Neutrophils # Man Lymphocytes # (Manual) Monocytes # (Manual) PT INR D-Dimer ABG pH ABG pO2 ABG HCO3 ABG O2 Saturation ABG Base Excess ABG Hemoglobin Oxyhemoglobin Sodium Potassium Chloride Carbon Dioxide BUN Creatinine Glucose POC Glucose 137 H 111 H Lactic Acid Calcium Phosphorus Magnesium AST ALT Alkaline Phosphatase Lactate Dehydrogenase Troponin T C-Reactive Protein NT-Pro-B Natriuret Pep Total Protein Albumin LDL Cholesterol Direct Vitamin B12 Crossmatch 12/11/21 12/11/21 12/11/21 04:35 12:46 16:07 WBC RBC Hgb Hct MCV MCH MCHC RDW Plt Count Seg Neuts % (Manual) Lymphocytes % (Manual) Seg Neutrophils # Man Lymphocytes # (Manual) Monocytes # (Manual) PT INR D-Dimer ABG pH ABG pO2 ABG HCO3 ABG O2 Saturation ABG Base Excess ABG Hemoglobin Oxyhemoglobin Sodium 136 L Potassium Chloride Carbon Dioxide BUN 27 H Creatinine Glucose 112 H POC Glucose 115 H 111 H Lactic Acid Calcium 7.6 L Phosphorus Magnesium AST ALT Alkaline Phosphatase Lactate Dehydrogenase Troponin T C-Reactive Protein NT-Pro-B Natriuret Pep Total Protein Albumin LDL Cholesterol Direct Vitamin B12 Crossmatch 12/11/21 12/12/21 12/12/21 23:42 04:30 04:30 WBC RBC 2.60 L Hgb 7.1 L Hct 21.5 L MCV MCH 27 L MCHC RDW 20.3 H Plt Count Seg Neuts % (Manual) Lymphocytes % (Manual) Seg Neutrophils # Man Lymphocytes # (Manual) Monocytes # (Manual) PT INR D-Dimer ABG pH ABG pO2 ABG HCO3 ABG O2 Saturation ABG Base Excess ABG Hemoglobin Oxyhemoglobin Sodium 135 L Potassium Chloride 97.9 L Carbon Dioxide BUN 26 H Creatinine 0.5 L Glucose 138 H POC Glucose 115 H Lactic Acid Calcium 8.2 L Phosphorus Magnesium AST ALT Alkaline Phosphatase Lactate Dehydrogenase Troponin T C-Reactive Protein NT-Pro-B Natriuret Pep Total Protein Albumin LDL Cholesterol Direct Vitamin B12 Crossmatch 12/12/21 12/12/21 12/12/21 04:30 05:10 11:51 WBC RBC Hgb Hct MCV MCH MCHC RDW Plt Count Seg Neuts % (Manual) Lymphocytes % (Manual) Seg Neutrophils # Man Lymphocytes # (Manual) Monocytes # (Manual) PT INR D-Dimer ABG pH ABG pO2 ABG HCO3 ABG O2 Saturation ABG Base Excess ABG Hemoglobin Oxyhemoglobin Sodium Potassium Chloride Carbon Dioxide BUN Creatinine Glucose POC Glucose 119 H 119 H Lactic Acid Calcium Phosphorus Magnesium AST ALT Alkaline Phosphatase Lactate Dehydrogenase Troponin T C-Reactive Protein NT-Pro-B Natriuret Pep Total Protein Albumin LDL Cholesterol Direct Vitamin B12 Crossmatch See Detail 12/13/21 12/13/21 12/13/21 00:52 04:00 04:00 WBC RBC 2.73 L Hgb 7.4 L Hct 22.8 L MCV MCH 27 L MCHC RDW 20.5 H Plt Count Seg Neuts % (Manual) Lymphocytes % (Manual) Seg Neutrophils # Man Lymphocytes # (Manual) Monocytes # (Manual) PT INR D-Dimer ABG pH ABG pO2 ABG HCO3 ABG O2 Saturation ABG Base Excess ABG Hemoglobin Oxyhemoglobin Sodium 134 L Potassium Chloride 96.7 L Carbon Dioxide BUN 23 H Creatinine 0.5 L Glucose 131 H POC Glucose 131 H Lactic Acid Calcium 8.1 L Phosphorus Magnesium AST ALT Alkaline Phosphatase Lactate Dehydrogenase Troponin T C-Reactive Protein NT-Pro-B Natriuret Pep Total Protein Albumin LDL Cholesterol Direct Vitamin B12 Crossmatch 12/13/21 12/13/21 12/13/21 05:23 12:11 17:18 WBC RBC Hgb Hct MCV MCH MCHC RDW Plt Count Seg Neuts % (Manual) Lymphocytes % (Manual) Seg Neutrophils # Man Lymphocytes # (Manual) Monocytes # (Manual) PT INR D-Dimer ABG pH ABG pO2 ABG HCO3 ABG O2 Saturation ABG Base Excess ABG Hemoglobin Oxyhemoglobin Sodium Potassium Chloride Carbon Dioxide BUN Creatinine Glucose POC Glucose 121 H 143 H 148 H Lactic Acid Calcium Phosphorus Magnesium AST ALT Alkaline Phosphatase Lactate Dehydrogenase Troponin T C-Reactive Protein NT-Pro-B Natriuret Pep Total Protein Albumin LDL Cholesterol Direct Vitamin B12 Crossmatch 12/14/21 12/14/21 12/14/21 00:54 04:20 04:20 WBC RBC 2.39 L Hgb 6.5 L Hct 20.3 L MCV MCH 27 L MCHC RDW 20.3 H Plt Count Seg Neuts % (Manual) Lymphocytes % (Manual) Seg Neutrophils # Man Lymphocytes # (Manual) Monocytes # (Manual) PT INR D-Dimer ABG pH ABG pO2 ABG HCO3 ABG O2 Saturation ABG Base Excess ABG Hemoglobin Oxyhemoglobin Sodium 130 L Potassium Chloride 93.5 L Carbon Dioxide BUN 25 H Creatinine Glucose 123 H POC Glucose 123 H Lactic Acid Calcium 8.0 L Phosphorus Magnesium AST ALT Alkaline Phosphatase Lactate Dehydrogenase Troponin T C-Reactive Protein NT-Pro-B Natriuret Pep Total Protein Albumin LDL Cholesterol Direct Vitamin B12 Crossmatch 12/14/21 12/14/21 12/14/21 05:06 08:17 10:30 WBC RBC Hgb Hct MCV MCH MCHC RDW Plt Count Seg Neuts % (Manual) Lymphocytes % (Manual) Seg Neutrophils # Man Lymphocytes # (Manual) Monocytes # (Manual) PT INR D-Dimer ABG pH ABG pO2 ABG HCO3 ABG O2 Saturation ABG Base Excess ABG Hemoglobin Oxyhemoglobin Sodium Potassium Chloride Carbon Dioxide BUN Creatinine Glucose POC Glucose 131 H 119 H Lactic Acid Calcium Phosphorus Magnesium AST ALT Alkaline Phosphatase Lactate Dehydrogenase Troponin T C-Reactive Protein NT-Pro-B Natriuret Pep Total Protein Albumin LDL Cholesterol Direct Vitamin B12 Crossmatch See Detail 12/14/21 12/14/21 12/14/21 12:15 16:37 23:27 WBC RBC Hgb Hct MCV MCH MCHC RDW Plt Count Seg Neuts % (Manual) Lymphocytes % (Manual) Seg Neutrophils # Man Lymphocytes # (Manual) Monocytes # (Manual) PT INR D-Dimer ABG pH ABG pO2 ABG HCO3 ABG O2 Saturation ABG Base Excess ABG Hemoglobin Oxyhemoglobin Sodium Potassium Chloride Carbon Dioxide BUN Creatinine Glucose POC Glucose 147 H 141 H 130 H Lactic Acid Calcium Phosphorus Magnesium AST ALT Alkaline Phosphatase Lactate Dehydrogenase Troponin T C-Reactive Protein NT-Pro-B Natriuret Pep Total Protein Albumin LDL Cholesterol Direct Vitamin B12 Crossmatch 12/15/21 12/15/21 12/15/21 05:00 07:00 07:00 WBC 12.3 H RBC 3.27 L Hgb 8.8 L Hct 27.5 L D MCV MCH 27 L MCHC RDW 19.0 H Plt Count Seg Neuts % (Manual) Lymphocytes % (Manual) Seg Neutrophils # Man Lymphocytes # (Manual) Monocytes # (Manual) PT INR D-Dimer ABG pH ABG pO2 ABG HCO3 ABG O2 Saturation ABG Base Excess ABG Hemoglobin Oxyhemoglobin Sodium 134 L Potassium Chloride 95.7 L Carbon Dioxide BUN 28 H Creatinine Glucose 129 H POC Glucose 129 H Lactic Acid Calcium 8.2 L Phosphorus Magnesium AST ALT Alkaline Phosphatase Lactate Dehydrogenase Troponin T C-Reactive Protein NT-Pro-B Natriuret Pep Total Protein Albumin LDL Cholesterol Direct Vitamin B12 Crossmatch 12/15/21 12/15/21 12/15/21 11:18 16:00 23:39 WBC RBC Hgb Hct MCV MCH MCHC RDW Plt Count Seg Neuts % (Manual) Lymphocytes % (Manual) Seg Neutrophils # Man Lymphocytes # (Manual) Monocytes # (Manual) PT INR D-Dimer ABG pH ABG pO2 ABG HCO3 ABG O2 Saturation ABG Base Excess ABG Hemoglobin Oxyhemoglobin Sodium Potassium Chloride Carbon Dioxide BUN Creatinine Glucose POC Glucose 139 H 137 H 146 H Lactic Acid Calcium Phosphorus Magnesium AST ALT Alkaline Phosphatase Lactate Dehydrogenase Troponin T C-Reactive Protein NT-Pro-B Natriuret Pep Total Protein Albumin LDL Cholesterol Direct Vitamin B12 Crossmatch 12/16/21 12/16/21 12/16/21 05:24 10:21 10:21 WBC 15.3 H RBC 3.24 L Hgb 8.9 L Hct 27.7 L MCV MCH MCHC RDW 19.0 H Plt Count Seg Neuts % (Manual) Lymphocytes % (Manual) Seg Neutrophils # Man Lymphocytes # (Manual) Monocytes # (Manual) PT INR D-Dimer ABG pH ABG pO2 ABG HCO3 ABG O2 Saturation ABG Base Excess ABG Hemoglobin Oxyhemoglobin Sodium 131 L Potassium 3.5 L Chloride 92.7 L Carbon Dioxide BUN 36 H Creatinine Glucose 160 H POC Glucose 121 H Lactic Acid Calcium Phosphorus Magnesium 1.60 L AST ALT Alkaline Phosphatase Lactate Dehydrogenase Troponin T C-Reactive Protein NT-Pro-B Natriuret Pep Total Protein Albumin LDL Cholesterol Direct Vitamin B12 Crossmatch 12/16/21 12/16/21 12/16/21 11:21 18:28 20:52 WBC RBC Hgb Hct MCV MCH MCHC RDW Plt Count Seg Neuts % (Manual) Lymphocytes % (Manual) Seg Neutrophils # Man Lymphocytes # (Manual) Monocytes # (Manual) PT INR D-Dimer ABG pH 7.479 H ABG pO2 79.3 L ABG HCO3 27.3 H ABG O2 Saturation ABG Base Excess 3.6 H ABG Hemoglobin 9.1 L Oxyhemoglobin 94.9 L Sodium Potassium Chloride Carbon Dioxide BUN Creatinine Glucose POC Glucose 153 H 132 H Lactic Acid Calcium Phosphorus Magnesium AST ALT Alkaline Phosphatase Lactate Dehydrogenase Troponin T C-Reactive Protein NT-Pro-B Natriuret Pep Total Protein Albumin LDL Cholesterol Direct Vitamin B12 Crossmatch 12/16/21 12/17/21 12/17/21 23:30 04:25 04:25 WBC 12.3 H RBC 2.16 L Hgb 6.0 L Hct 18.1 L* D MCV MCH MCHC RDW 19.4 H Plt Count Seg Neuts % (Manual) Lymphocytes % (Manual) Seg Neutrophils # Man Lymphocytes # (Manual) Monocytes # (Manual) PT INR D-Dimer ABG pH ABG pO2 ABG HCO3 ABG O2 Saturation ABG Base Excess ABG Hemoglobin Oxyhemoglobin Sodium 132 L Potassium 3.2 L Chloride 112.0 H Carbon Dioxide BUN 32 H Creatinine Glucose 122 H POC Glucose 137 H Lactic Acid Calcium 6.8 L D Phosphorus Magnesium AST ALT Alkaline Phosphatase Lactate Dehydrogenase Troponin T C-Reactive Protein NT-Pro-B Natriuret Pep Total Protein Albumin LDL Cholesterol Direct Vitamin B12 Crossmatch 12/17/21 12/17/21 12/17/21 05:30 11:49 14:45 WBC RBC Hgb 9.7 L D Hct MCV MCH MCHC RDW Plt Count Seg Neuts % (Manual) Lymphocytes % (Manual) Seg Neutrophils # Man Lymphocytes # (Manual) Monocytes # (Manual) PT INR D-Dimer ABG pH ABG pO2 ABG HCO3 ABG O2 Saturation ABG Base Excess ABG Hemoglobin Oxyhemoglobin Sodium Potassium Chloride Carbon Dioxide BUN Creatinine Glucose POC Glucose 137 H 143 H Lactic Acid Calcium Phosphorus Magnesium AST ALT Alkaline Phosphatase Lactate Dehydrogenase Troponin T C-Reactive Protein NT-Pro-B Natriuret Pep Total Protein Albumin LDL Cholesterol Direct Vitamin B12 Crossmatch 12/17/21 12/18/21 12/18/21 17:01 05:04 05:04 WBC 13.8 H RBC 3.44 L Hgb 9.9 L Hct 28.8 L MCV MCH MCHC RDW 18.1 H Plt Count Seg Neuts % (Manual) Lymphocytes % (Manual) Seg Neutrophils # Man Lymphocytes # (Manual) Monocytes # (Manual) PT INR D-Dimer ABG pH ABG pO2 ABG HCO3 ABG O2 Saturation ABG Base Excess ABG Hemoglobin Oxyhemoglobin Sodium 132 L Potassium Chloride 97.4 L Carbon Dioxide BUN 38 H Creatinine Glucose 134 H POC Glucose 132 H Lactic Acid Calcium Phosphorus Magnesium AST ALT Alkaline Phosphatase Lactate Dehydrogenase Troponin T C-Reactive Protein NT-Pro-B Natriuret Pep Total Protein Albumin LDL Cholesterol Direct Vitamin B12 Crossmatch 12/18/21 12/18/21 12/18/21 05:28 10:57 16:27 WBC RBC Hgb Hct MCV MCH MCHC RDW Plt Count Seg Neuts % (Manual) Lymphocytes % (Manual) Seg Neutrophils # Man Lymphocytes # (Manual) Monocytes # (Manual) PT INR D-Dimer ABG pH ABG pO2 ABG HCO3 ABG O2 Saturation ABG Base Excess ABG Hemoglobin Oxyhemoglobin Sodium Potassium Chloride Carbon Dioxide BUN Creatinine Glucose POC Glucose 118 H 132 H 130 H Lactic Acid Calcium Phosphorus Magnesium AST ALT Alkaline Phosphatase Lactate Dehydrogenase Troponin T C-Reactive Protein NT-Pro-B Natriuret Pep Total Protein Albumin LDL Cholesterol Direct Vitamin B12 Crossmatch 12/19/21 12/19/21 12/19/21 00:02 04:41 04:41 WBC 16.0 H RBC 3.45 L Hgb 9.7 L Hct 29.1 L MCV MCH MCHC RDW 17.8 H Plt Count Seg Neuts % (Manual) Lymphocytes % (Manual) Seg Neutrophils # Man Lymphocytes # (Manual) Monocytes # (Manual) PT INR D-Dimer ABG pH ABG pO2 ABG HCO3 ABG O2 Saturation ABG Base Excess ABG Hemoglobin Oxyhemoglobin Sodium 133 L Potassium Chloride 97.9 L Carbon Dioxide BUN 36 H Creatinine 0.5 L Glucose 126 H POC Glucose 127 H Lactic Acid Calcium 8.3 L Phosphorus Magnesium AST ALT Alkaline Phosphatase Lactate Dehydrogenase Troponin T C-Reactive Protein NT-Pro-B Natriuret Pep Total Protein Albumin LDL Cholesterol Direct Vitamin B12 Crossmatch 12/19/21 12/19/21 05:26 12:20 WBC RBC Hgb Hct MCV MCH MCHC RDW Plt Count Seg Neuts % (Manual) Lymphocytes % (Manual) Seg Neutrophils # Man Lymphocytes # (Manual) Monocytes # (Manual) PT INR D-Dimer ABG pH ABG pO2 ABG HCO3 ABG O2 Saturation ABG Base Excess ABG Hemoglobin Oxyhemoglobin Sodium Potassium Chloride Carbon Dioxide BUN Creatinine Glucose POC Glucose 119 H 145 H Lactic Acid Calcium Phosphorus Magnesium AST ALT Alkaline Phosphatase Lactate Dehydrogenase Troponin T C-Reactive Protein NT-Pro-B Natriuret Pep Total Protein Albumin LDL Cholesterol Direct Vitamin B12 Crossmatch Chest x-ray: pending Allied health notes reviewed: nursing
--- NOTE | 2021-12-19 13:28 | Progress Note ---
<LONNIE MAURICE - Last Filed: 12/19/21 19:47> Assessment and Plan Assessment and plan: This is a 81-year-old female with known history of diabetes mellitus, hypertension, PPM, and arthritis admitted for sepsis and acute hypoxia respiratory failure 2/2 bilateral pneumonia requiring intubation and ventilatory support Hospital Course to date: 11/04/2021: Empiric therapy with iv levaquin/vancomycin. COVID PCR pending. Will consult ID. PCCM consulted, will follow recs. Hypotensive this AM, ordered bolus and fluids at 150 cc/hr. May require pressor support if bp does not improve. 11/05/2021: GBS on bcx +, currently on rocephin IV. Currently on bipap due to respiratory distress overnight. Worsening BL opacities on CXR. May be volume overload vs pneumonia. Unfortunately bp too low for lasix at this point. WIll continue levophed and bipap. Once able to tolerate, may do trial of albumin/lasi x. Call attempt made to Niraj, no response. Will try again tomorrow to update. 11/06/2021: Decompensated overnight requiring intubation. CXR shows worsening interstitial infiltrates. Currenlty on dopamine, levophed, vasopressin. PICC line ordered. Advised RN to place gamble for I/O monitoring. Would benefit from diuresis but very volume overloaded. Prognosis guarded 11/08: Off sedation this am, remains unresponsive only grimace to pain. Hold all sedatives agents for now, patient is off pressors this am. Hypernatremia from today's lab- D5W X1bag, and low K repleted, repeat lab in the am. Severe constipation also noted from KUB, BR added. 11/09: Sudden SPO2 drop in the 60s this am. Patient was manually bagged and deep suctioned. Patient is currently stable on the vent, repeat CXR with no significant change. D/w CCM Mucomyst and brochodilator added. Patient mentation is unchanged, continue to hold off on sedative agents. Neurology consulted. 11/10: Acute DVT noted on bilateral lower extremity Doppler ultrasound therefore she was started on Lovenox treatment dose. Failed SBT. Hypernatremia and hyperchloremia noted, free water flush adjusted. 11/11: Patient noted to be febrile with increasing of the cytosis, UA/BC sent and CXR ordered. ID escalated antibiotics to cefepime. CXR demonstrated mucous plug, bedside bronchoscopy was performed and O ETT was changed over bougie from 6 cm to 7.5. Patient was noted to have a pneumothorax postprocedure and chest tube was placed. Family updated by [facility]. Free water flush increased and will add Jaswant supplementation. 11/12: Patient not noted to follow commands, hypernatremia worsen/persist, increasing free water flush, potassium and magnesium and phosphorus repleted. Hemoglobin noted to be 7.1/24.5 from 7.03/12 yesterday. We will continue to trend and monitor. Vent changes per [facility]. Repeat CXR showed no residual pneumo thorax. Consider waterseal tomorrow. Given persistent leukocytosis antibiotics escalated to cefepime per ID. 11/13: Remains on cefepime and vancomycin, vent changes per [facility]. Anemia noted and given 1 unit PRBC. And beta-charleen held in setting of Levophed drip infusing. Remains on fentanyl drip. 11/14: Patient put on CPAP trial by [facility], will continue chest tube until after extubation. Will rest on assist control. CT brain was cancelled by [facility] and reordered. 11/15: Patient removed chest tube overnight. Will obtain cxr. remains on low dose levo. CTH completed with no acute findings. RT to place on CPAP. 11/16: Hypernatremia/hyperchloremia noted on the increase of day water flushes. Anemia noted and ordered PRBC. asked RT to place on cpap but not done yet 11/17: Patient remains on the vent, awake and following commands. H&H stable s/p 2units PRBCs. GI on consult, no intervention at this time. Will continue protonix gtt and serial H&H Q6hrs. Keep patient NPO for now, D5w added for hypernatremia and NPO status. Plan for IVC filter placement today by Vascular. 11/18: Patient is s/p IVC filter. H&H continue to trend down, hbg 6.1 this am, 1 unit of PRBCs ordered. Plan for possible EGD today by GI. Keep patient NPO, continue PPI drip and serial H&H Q6hrs. Electrolytes repleted, repeat lab in the am 11/19: S/p EGD- larger duodenal ulcer noted, see operative note. GI recommendat ions noted also noted. H&H stable this am. Keep patient on protonix gtt for now. Will keep patient NPO, continue IVF and serial H&H for now. Electrolytes repleted, repeat labs in the am 2/3: Very agitated and restless this am, fentanyl gtt resumed. Patient remains on protonix gtt, H&H remains stable. Will switch protonix gtt to IV BID, continue carafate and okay to resume meds at this time. Will F/u with GI to see if TF can be resumed. Gamble was reinserted overnight for retention. Electrolytes repleted, repeat in the am. Plan for possible PST today for possible extubation per CCM. 11/21: Patient is now on seroquel and patient's home buspar resumed. Patient more calm this morning, fentanyl gtt is off. H&H remains stable and patient is tolerating TF. Patient had a runs of Vtach/PVCs this am, BB added per Cardio. Continue daily PS and wean trial for possible extubation. 11/22: Back on fentanyl gtt overnight , RASS o to -1, following commands. Patient failed PST this am due to increased work of breathing and low SPO2, ABG pending. Patient is also with worsen pitting edema, lasix is still on hold. Will discuss with cardio and CCM to possibly resume lasix. 11/23: MARIA DEL CARMEN overnight. Patient failed PST again this am. Per CCM plan for possible trach and PEG, hold off on IV lasix for now. General surgery consulted and family is aware of possible Trach and PEG. 11/24: Trach/PEG pending this week, continue SBT/SAT as tolerated. No acute events reported overnight. 11/25: Patient was n.p.o. overnight and will remain n.p.o. tonight for trach/PEG tomorrow morning. She failed to support trial again. KUB obtained due to distended belly. 11/26: Patient scheduled for tracheostomy and PEG tube placement today, has been n.p.o. since midnight. No acute events reported overnight. [facility] ordered rosalinda thicone scheduled. 11/27: No acute events reported overnight, patient received trach/PEG yesterday. Has been on feedings since last night. Still awaiting LTAC placement. 11/28: Patient magnesium repleted, repeat a.m. labs, SBT 11/29: Patient complains of chest pain but ECG obtained which showed no acute findings, ordered troponin. Patient failed CPAP yesterday and was trialed again today. levophed was restarted but will aggressively wean 11/30: Patient failed SBT. Continue supportive care. Started gabapentin today 12/01: MARIA DEL CARMEN overnight. Continue daily PST. Case management to arrange possible placement 12/02: Report of dark stools overnight, patient is hemodynamically stable. H&H stable, patient is on PPI. Will continue to trend H&H. Continue daily PST as tolerated. Awaiting LTAC vs SNF placement. 12/03: Hypotensive overnight, requiring low dose pressors. S/p X3 days of gentle diurese. Will continue to monitor, wean off pressors as tolerated for MAP of 65. Patient Failed PST yesterday, case management to follow up with insurance for possible LTAC placement. Continue daily PST as tolerated. PT eval and treat ordered. 12/04: Increased agitation and anxiety overnight, remains on buspar and seroquel, trazadone added to promote rest. Patient is now working with PT, keep patient engage and awake during the day so she can rest at night. No BM for over 5 days, BR was adjusted. Patient did not tolerate PST again yesterday, continue daily PST as tolerated. Continue to titrate pressor for MAP above 65. Pending possible LTAC placement, case management to arrange. 12/05: Still not getting much rest overnight, will add melatonin for sleep. Continue to engage patient during the day and promote rest at night. TF was held due to concern for possible bleeding, H&H remains stable and stools normal this am. Resume TF and continue PPI and carafate. Remains on low dose levophed, titrate as tolerated. Continue daily PST. Possible LTAC placement, awaiting approval. 12/06: MARIA DEL CARMEN overnight. Patient rested overnight. Continue supportive measures. Daily PST as tolerated. Awaiting possible LTAC placement 12/07: MARIA DEL CARMEN overnight. Plan for Tpiece trial today. Continue current supportive measures. Possible LTAC placement 12/08: Patient placed on pressure support trial again today, started on Xanax, no acute events reported overnight. Awaiting insurance approval for LTAC. 12/09: Levophed discontinued, LTAC transfer denied, started on midodrine and Lasix, ultrasound chest pending, started on Xanax 0.[address] De León updated family at bedside today. Started on Dilaudid every 3 hours as needed. 12/10: Patient placed on CPAP trial this morning, no acute events reported overnight. Will order ultrasound-guided thoracentesis. 12/11: Patient had a thoracentesis today, will decrease Xanax dosage and continue midodrine and diuresing. Patient failed CPAP today. 12/12: Patient not tolerate CPAP trials today, no acute events reported overnight 12/13: No acute events overnight. continue PSV trials as tolerated. Daughter updated at bedside 12/14: Patient noted to be anemic today, worsened gastric occult. Patient seems to be oversedated therefore Xanax changed to as needed and fentanyl patch discontinued. We will continue to monitor hyponatremia. 12/15: MARIA DEL CARMEN overnight. s/p 1unit of PRBCs, H&H stable this am, no signs of any active bleeding. Continue daily PST as tolerated. Awaiting placement. 12/16: Hypertensive this am, Midodrine decreased. Continue daily PST. MARIA DEL CARMEN overnight 12/17: Patient Hgb dropped to 6 this am, no s/s of any active bleeding, VSS. Patient received 1unit of PRBC, will continue to trend H&H. Patient was pancultured and back on IV Abx due to persistent fevers yesterday. ID is also back on the case. Continue IV Abx per ID and f/u on cultures data for sensitivity. Patient also failed PST yesterday, continue daily PST as tolerated. Electrolytes repleted, repeat labs in the am. 12/18: Patient blood cultures is growing GPC 4 out 4 bottles. PICC line D/Rivas, patient is already on IV Abx-cefepine and Vanc and ID is following. Patient remains hemodynamically stable. Daily PST as tolerated adn PRN Benzo for anxiety. 12/19: MARIA DEL CARMEN overnight. Culture data noted, continue IV Abx per ID. Orders placed for repeat Bculture. Gamble D/C overnight, patient is voiding. Check bladder scan as needed for retention. Patient failed PST again today. Continue daily PST as tolerated. Assessment and Plan #Bacteremia #Septic Shock POA-resolved #Bilateral Pneumonia-resolved - Presented with fevers, leukocytosis, and hypotension - COVID PCR negative - 11/04 Bcult with 3/4 group B strep bacteremia, [id number] Bculture NGTD - 11/04 2D Echo with no evidence of vegetation - New fevers on 12/16- Blood culture with MRSA in clusters 4/4 bottles - 12/16- UA is unremarkable, sputum culture pending - 12/18 repeat B.culture pending - ID on consult, appreciate recommendations - Back on IV Abx- Cefepine and Vanco - CVC vacation- insert PIV access - Trend CBC #Acute Hypoxic Respiratory Failure 11/19 #Bilateral Pleural Effusion #Right Pneumothorax-resolved #Bilateral Pneumonia - COVID PCR negative - CXR shows Bilateral opacities, may be volume overloaded - CCM consulted, appreciate recommendations - Intubated on 11/06, ETT exchanged on 11/11 - 11/11 Bronchoscopy--Complicated by spontaneous pneumothorax - 11/11 S/p chest tube placement for right pneumothorax, removed by patient on 11/15 - 11/26 s/p Tracheostomy and PEGtube placement - 12/11 thoracentesis due to moderate pleural effusion-1L removed - This am Vent Setting:A/C-30%,6,14,400 - On PO Lasix - Continue Nebs treatment - Continue daily PST as tolerated - VAP bundle addressed - Aspiration precaution HOB above 30 - PRN ABG and CXR per CCM - Continue SPO2 monitoring for SPO2 goal above 92% #CHF- EF 30-35% with PPM #Hypotension #Septic Kristian-resolved - SR on the monitor, HR 70-90s - 11/04 Echo-EF 30-35% - Now on Midodrine TID - Continue beta-charleen - Not on aspirin due to allergy - Statins resumed - Continue blood pressure monitor per protocol - Maintain MAP above 65 - Cardiology signed off #Acute Microcytic Anemia #Acute Blood Loss-resolved #Acute GI Bleed-resolved - s/p a total of 7units of PRBCs since admit - 11/18 EGD- Large cratered ulcer in the posterior duodenal bulb about 2 cm in diameter. Visible vessel present. Mild active oozing from the ulcer bed. A total of 3 injections were performed around the ulcer for a total of 2.5 cc of dilute epinephrine and hemostasis was obtained.--> See full report - GI signed off - Stool occult still positive - H&H dropped this am, no s/s of any active bleeding, s/p 1unit of PRBC - Continue PPI and Carafate - Continue to trend CBC - Transfuse for H&H less than 7 - Hold AC for now #Hypokalemia #Hyponatremia - Back on PO lasix - Strict intake and output - Continue to monitor and replace electrolytes as needed - Trend BMP,mag, & phosp #Urinary Retention - Gamble reinserted on 11/19 for retention - Keep gamble for now #Acute DVT in RLE - BLE doppler + Acute DVT in the right external iliac vein, common femoral vein, and superior aspect of femoral vein - Was on Therapeutic Lovenox- held to due GI Bleed - 11/17 s/p IVC filter placement by Vascular Surg #Agitation #Acute Encephalopathy-Resolved - Awake and following commands - Continue Buspar and seroquel - PRN Xanax for anxiety - CT head noted - Neurology consulted - PRN analgesia for pain management #Transaminitis/Shock Liver - Probably due to bacteria/spetic shock - Continue to Trend LFTs #Endo: h/o DM and hypothyroidism - Continue home Synthroid - Accu-Cheks every 6 - Avoid hypoglycemia The high probability of a clinically significant, sudden or life threatening deterioration of the [multi] system(s) required my full and direct attention, intervention and personal management. The aggregate critical care time was [60] minutes. This time is in addition to time spent performing reported procedures but includes the following: [x] Data Review and interpretation [x] Patient assessment and monitoring of vital signs [x] Documentation [x] Medication orders and management Disposition Plan: ICU Total Time Spent with Patient (Minutes): 60 History Interval history: Patient seen and examined at the bedside. Remains stable on the vent, AAO, following commands. MARIA DEL CARMEN overnight Hospitalist Physical - Constitutional Vitals: Temp Pulse Resp BP Pulse Ox 97.2 F L 74 20 131/110 99 12/19/21 11:56 12/19/21 12:00 12/19/21 12:00 12/19/21 12:00 12/19/21 12:00 General appearance: Present: no acute distress, other (Trach and on the vent) - EENT Eyes: Present: PERRL ENT: hearing intact - Neck Neck: Present: normal ROM - Respiratory Respiratory effort: normal Respiratory: bilateral: rhonchi - Cardiovascular Rhythm: regular Heart Sounds: Present: S1 & S2 - Extremities Extremities: no ischemia, pulses intact, pulses symmetrical Extremity abnormal: edema - Peripheral Assessment Left Upper Extremity Edema Type: Pitting Edema Degree: 2+ Capillary Refill: < 3 seconds Skin Temperature: Warm Generalized Edema Type: Non-pitting Edema Degree: 1+ Capillary Refill: < 3 seconds Skin Temperature: Warm Peripheral Pulses: within normal limits - Abdominal General gastrointestinal: soft, non-distended, normal bowel sounds - Integumentary Integumentary: Present: warm, dry - Psychiatric Psychiatric: appropriate mood/affect, cooperative - Neurologic Neurologic: moves all extremities, other (Trach and on the vent) - Allied Health Allied health notes reviewed: nursing HEART Score - HEART Score Troponin: Troponin T 0.045 ng/mL (0.00-0.029) H 11/29/21 20:15 Results - Labs CBC & Chem 7: 12/19/21 04:41 12/19/21 04:41 Labs: Laboratory Last Values WBC 16.0 K/mm3 (4.5-11.0) H 12/19/21 04:41 RBC 3.45 M/mm3 (3.65-5.03) L 12/19/21 04:41 Hgb 9.7 gm/dl (10.1-14.3) L 12/19/21 04:41 Hct 29.1 % (30.3-42.9) L 12/19/21 04:41 MCV 84 fl (79-97) 12/19/21 04:41 MCH 28 pg (28-32) 12/19/21 04:41 MCHC 33 % (30-34) 12/19/21 04:41 RDW 17.8 % (13.2-15.2) H 12/19/21 04:41 Plt Count 230 K/mm3 (140-440) 12/19/21 04:41 Add Manual Diff Complete 11/16/21 15:25 Total Counted 100 11/16/21 15:25 Seg Neutrophils % Motorized [employer] 11/06/21 15:50 Seg Neuts % (Manual) 87.0 % (40.0-70.0) H 11/16/21 15:25 Band Neutrophils % 0 % 11/16/21 15:25 Lymphocytes % (Manual) 8.0 % (13.4-35.0) L 11/16/21 15:25 Reactive Lymphs % (Man) 0 % 11/16/21 15:25 Monocytes % (Manual) 5.0 % (0.0-7.3) 11/16/21 15:25 Eosinophils % (Manual) 0 % (0.0-4.3) 11/16/21 15:25 Basophils % (Manual) 0 % (0.0-1.8) 11/16/21 15:25 Metamyelocytes % 0 % 11/16/21 15:25 Myelocytes % 0 % 11/16/21 15:25 Promyelocytes % 0 % 11/16/21 15:25 Blast Cells % 0 % 11/16/21 15:25 Nucleated RBC % Not Reportable 11/16/21 15:25 Seg Neutrophils # Man 15.0 K/mm3 (1.8-7.7) H 11/16/21 15:25 Band Neutrophils # 0.0 K/mm3 11/16/21 15:25 Lymphocytes # (Manual) 1.4 K/mm3 (1.2-5.4) 11/16/21 15:25 Abs React Lymphs (Man) 0.0 K/mm3 11/16/21 15:25 Monocytes # (Manual) 0.9 K/mm3 (0.0-0.8) H 11/16/21 15:25 Eosinophils # (Manual) 0.0 K/mm3 (0.0-0.4) 11/16/21 15:25 Basophils # (Manual) 0.0 K/mm3 (0.0-0.1) 11/16/21 15:25 Metamyelocytes # 0.0 K/mm3 11/16/21 15:25 Myelocytes # 0.0 K/mm3 11/16/21 15:25 Promyelocytes # 0.0 K/mm3 11/16/21 15:25 Blast Cells # 0.0 K/mm3 11/16/21 15:25 WBC Morphology Not Reportable 11/16/21 15:25 Hypersegmented Neuts Not Reportable 11/16/21 15:25 Hyposegmented Neuts Not Reportable 11/16/21 15:25 Hypogranular Neuts Not Reportable 11/16/21 15:25 Smudge Cells Not Reportable 11/16/21 15:25 Toxic Granulation Not Reportable 11/16/21 15:25 Toxic Vacuolation Not Reportable 11/16/21 15:25 Dohle Bodies Not Reportable 11/16/21 15:25 Pelger-Huet Anomaly Not Reportable 11/16/21 15:25 Irina Rods Not Reportable 11/16/21 15:25 Platelet Estimate Consistent w auto 11/16/21 15:25 Clumped Platelets Rare 11/16/21 15:25 Plt Clumps, EDTA Not Reportable 11/16/21 15:25 Large Platelets Not Reportable 11/16/21 15:25 Giant Platelets Not Reportable 11/16/21 15:25 Platelet Satelliting Not Reportable 11/16/21 15:25 Plt Morphology Comment Not Reportable 11/16/21 15:25 RBC Morphology Not Reportable 11/16/21 15:25 Dimorphic RBCs Not Reportable 11/16/21 15:25 Polychromasia Not Reportable 11/16/21 15:25 Hypochromasia 2+ 11/16/21 15:25 Poikilocytosis Not Reportable 11/16/21 15:25 Anisocytosis 2+ 11/16/21 15:25 Microcytosis Not Reportable 11/16/21 15:25 Macrocytosis Not Reportable 11/16/21 15:25 Spherocytes Not Reportable 11/16/21 15:25 Pappenheimer Bodies Not Reportable 11/16/21 15:25 Sickle Cells Not Reportable 11/16/21 15:25 Target Cells 2+ 11/16/21 15:25 Tear Drop Cells Not Reportable 11/16/21 15:25 Ovalocytes Not Reportable 11/16/21 15:25 Helmet Cells Not Reportable 11/16/21 15:25 Odonnell-[place] Bodies Not Reportable 11/16/21 15:25 [place] Rings Not Reportable 11/16/21 15:25 Malcom Cells Not Reportable 11/16/21 15:25 Bite Cells Not Reportable 11/16/21 15:25 Crenated Cell Not Reportable 11/16/21 15:25 Elliptocytes Not Reportable 11/16/21 15:25 Acanthocytes (Spur) Not Reportable 11/16/21 15:25 Rouleaux Not Reportable 11/16/21 15:25 Hemoglobin C Crystals Not Reportable 11/16/21 15:25 Schistocytes Not Reportable 11/16/21 15:25 Malaria parasites Not Reportable 11/16/21 15:25 Godfrey Bodies Not Reportable 11/16/21 15:25 Hem Pathologist Commnt No 11/16/21 15:25 PT 16.9 Sec. (12.2-14.9) H 11/26/21 05:00 INR 1.24 (0.87-1.13) H 11/26/21 05:00 APTT 29.2 Sec. (24.2-36.6) 11/26/21 05:00 D-Dimer 2655.00 ng/mlDDU (0-234) H 11/11/21 04:28 ABG pH 7.479 pH Units (7.350-7.450) H 12/16/21 20:52 ABG pCO2 37.5 mm Hg 12/16/21 20:52 ABG pO2 79.3 mm Hg (80.0-90.0) L 12/16/21 20:52 ABG HCO3 27.3 mmol/L (20.0-26.0) H 12/16/21 20:52 ABG O2 Saturation 97.0 % (95.0-99.0) 12/16/21 20:52 ABG O2 Content 12.3 (0.0-44) 12/16/21 20:52 ABG Base Excess 3.6 mmol/L (-2.0-3.0) H 12/16/21 20:52 ABG Hemoglobin 9.1 gm/dl (12.0-16.0) L 12/16/21 20:52 ABG Carboxyhemoglobin 1.6 % (0.0-5.0) 12/16/21 20:52 ABG Methemoglobin 0.5 % (0.0-1.5) 12/16/21 20:52 Oxyhemoglobin 94.9 % (95.0-99.0) L 12/16/21 20:52 FiO2 30 % 12/16/21 20:52 Sodium 133 mmol/L (137-145) L 12/19/21 04:41 Potassium 4.6 mmol/L (3.6-5.0) 12/19/21 04:41 Chloride 97.9 mmol/L (98-107) L 12/19/21 04:41 Carbon Dioxide 24 mmol/L (22-30) 12/19/21 04:41 Anion Gap 16 mmol/L 12/19/21 04:41 BUN 36 mg/dL (7-17) H 12/19/21 04:41 Creatinine 0.5 mg/dL (0.6-1.2) L 12/19/21 04:41 Estimated GFR > 60 ml/min 12/19/21 04:41 BUN/Creatinine Ratio 72 % 12/19/21 04:41 Glucose 126 mg/dL (65-100) H 12/19/21 04:41 POC Glucose 145 mg/dL (70-105) H 12/19/21 12:20 Lactic Acid 3.70 mmol/L (0.7-2.0) H* 11/03/21 22:32 Calcium 8.3 mg/dL (8.4-10.2) L 12/19/21 04:41 Phosphorus 2.90 mg/dL (2.5-4.5) 12/18/21 05:04 Magnesium 2.10 mg/dL (1.7-2.3) 12/18/21 05:04 Ferritin 52.6 ng/mL (10.0-200.0) 11/05/21 06:11 Total Bilirubin 0.50 mg/dL (0.1-1.2) 11/17/21 05:56 Direct Bilirubin < 0.2 mg/dL (0-0.2) 11/11/21 04:28 Indirect Bilirubin 0.1 mg/dL 11/11/21 04:28 AST 36 units/L (5-40) 11/17/21 05:56 ALT 47 units/L (7-56) 11/17/21 05:56 Alkaline Phosphatase 107 units/L (35-129) 11/17/21 05:56 Ammonia 42.0 umol/L (25-60) 11/10/21 14:08 Lactate Dehydrogenase 187 units/L (91-180) H 11/05/21 06:11 Troponin T 0.045 ng/mL (0.00-0.029) H 11/29/21 20:15 C-Reactive Protein 22.20 mg/dL (0.00-1.30) H 11/05/21 06:11 NT-Pro-B Natriuret Pep 7895 pg/mL (0-900) H 11/03/21 22:32 Total Protein 5.1 g/dL (6.3-8.2) L 11/17/21 05:56 Albumin 2.2 g/dL (3.9-5) L 11/17/21 05:56 Albumin/Globulin Ratio 0.8 % 11/17/21 05:56 Triglycerides 59 mg/dL (2-149) 11/29/21 20:15 Cholesterol 74 mg/dL (50-199) 11/29/21 20:15 LDL Cholesterol Direct 25 mg/dL (50-130) L 11/29/21 20:15 HDL Cholesterol 41 mg/dL (40-59) 11/29/21 20:15 Cholesterol/HDL Ratio 1.80 % 11/29/21 20:15 Vitamin B12 1823 pg/mL (211-911) H 11/10/21 14:08 TSH 1.510 mlU/mL (0.270-4.200) 11/10/21 14:08 Urine Color Yellow (Yellow) 11/11/21 09:00 Urine Turbidity Slightly-cloudy (Clear) 11/11/21 09:00 Urine pH 5.0 (5.0-7.0) 11/11/21 09:00 Ur Specific [place] 1.009 (1.003-1.030) 11/11/21 09:00 Urine Protein <15 mg/dl mg/dL (Negative) 11/11/21 09:00 Urine Glucose (UA) Neg mg/dL (Negative) 11/11/21 09:00 Urine Ketones Neg mg/dL (Negative) 11/11/21 09:00 Urine Blood Mod (Negative) 11/11/21 09:00 Urine Nitrite Neg (Negative) 11/11/21 09:00 Urine Bilirubin Neg (Negative) 11/11/21 09:00 Urine Urobilinogen < 2.0 mg/dL (<2.0) 11/11/21 09:00 Ur Leukocyte Esterase Neg (Negative) 11/11/21 09:00 Urine WBC (Auto) < 1.0 /HPF (0.0-6.0) 11/11/21 09:00 Urine RBC (Auto) < 1.0 /HPF (0.0-6.0) 11/11/21 09:00 Coronavirus (PCR) Negative (Negative) 11/10/21 08:30 Blood Type O POSITIVE 12/14/21 10:30 Antibody Screen Negative 12/14/21 10:30 Crossmatch See Detail 12/14/21 10:30 Microbiology: Microbiology 12/16/21 14:53 Peripheral/Venous Blood Culture - Final Methicillin Resist S. Aureus 12/19/21 09:36 Peripheral/Venous Blood Culture - Preliminary Culture in Progress 12/19/21 09:36 Peripheral/Venous Blood Culture - Preliminary Culture in Progress 12/16/21 15:09 Peripheral/Venous Blood Culture - Preliminary Staphylococcus Aureus Gamble/IV: Voiding Method Indwelling Catheter Active Medications - Current Medications Current Medications: Generic Name Dose Route Start Last Admin Trade Name Freq PRN Reason Stop Dose Admin Acetaminophen 650 mg 12/14/21 04:12 12/16/21 13:34 Acetaminophen 325 Mg/10.15 Ml Oral Liqd Unit Dose FEEDTUBE 650 mg Q6H PRN Administration Non Cardiac Pain or Temp>100.5 Hydrocodone Bitart/Acetaminophen 1 each 11/21/21 10:00 12/19/21 07:45 Hydrocodone/Acetaminophen 10-325mg Tab FEEDTUBE 1 each TID YOSSI Administration Alprazolam 0.25 mg 12/14/21 09:00 12/19/21 07:45 Alprazolam 0.25 Mg Tab PO 0.25 mg Q8H PRN Administration Agitation Lipase/Protease/Amylase 1 each 11/08/21 11:09 Lipase 10,500/Protease 25,000/Amylase 43,750 (Units) Dr Lema FEEDTUBE PRN PRN For Clogged Feeding Tube Buspirone HCl 7.5 mg 11/17/21 22:00 12/19/21 09:50 Buspirone 5 Mg Tab PO 7.5 mg BID YOSSI Administration Dextrose 0 ml 11/10/21 10:52 11/21/21 16:27 Dextrose 10% *Hypoglycemia IV 50 ml PRN PRN Administration Hypoglycemia Docusate Sodium 100 mg 12/04/21 11:00 12/19/21 09:51 Docusate Sodium 100 Mg/10 Ml Oral Liqd PO 100 mg BID YOSSI Administration Furosemide 20 mg 12/09/21 10:00 12/19/21 09:51 Furosemide 20 Mg Tab PO 20 mg QDAY YOSSI Administration Gabapentin 100 mg 12/01/21 10:00 12/19/21 09:50 Gabapentin 100 Mg Cap PO 100 mg QDAY YOSSI Administration Hydromorphone HCl 0.5 mg 12/08/21 20:06 12/17/21 19:20 Hydromorphone 1 Mg/1 Ml Inj IV 0.5 mg Q3H PRN Administration Pain, Moderate (4-6) Hydrophilic Ointment 1 applic 11/06/21 04:02 Lip Therapy Vaseline TP Q2HR PRN Dry Lips Cefepime HCl 2 gm in 100 mls @ 200 mls/hr 12/16/21 14:00 12/19/21 05:16 Cefepime/Ns 2 Gm/100 Ml IV 200 mls/hr Q12H YOSSI Administration Protocol Vancomycin HCl 1 gm in 250 mls @ 166.667 mls/hr 12/16/21 14:00 12/18/21 16:30 Vancomycin/Ns 1 Gm/250 Ml IV Infused Q24H [facility] Infusion Protocol Lansoprazole 30 mg 11/24/21 22:00 12/19/21 09:50 Lansoprazole 30 Mg Solutab FEEDTUBE 30 mg BID [facility] Administration Levothyroxine Sodium 125 mcg 11/05/21 07:00 12/19/21 05:35 Levothyroxine 125 Mcg Tab PO 125 mcg DAILY@0600 [facility] Administration Melatonin 5 mg 12/05/21 22:00 12/18/21 21:23 Melatonin 5 Mg Tab PO 5 mg QHS [facility] Administration Metoprolol Tartrate 6.25 mg 12/08/21 22:52 12/19/21 09:50 Metoprolol Tartrate 25 Mg Tab PO 6.25 mg BID [facility] Administration Midodrine 5 mg 12/16/21 20:00 12/19/21 09:49 Midodrine 5 Mg Tab PO Not Given 799,1999 [facility] Multi-Ingred Cream/Lotion/Oil/Oint 1 applic 11/06/21 04:02 Mineral Oil/Petrolatum, White Ophth Oint 3.5 Gm OU Q4HR PRN Dry Eye(s) Nitroglycerin 0.4 mg 11/30/21 11:36 Nitroglycerin 0.4 Mg Tab Subl SL .Q5MIN PRN Chest Pain Ondansetron HCl 4 mg 12/05/21 10:00 12/08/21 05:17 Ondansetron 4 Mg/2 Ml Inj IV 4 mg Q8H PRN Administration Nausea And Vomiting Polyethylene Glycol 17 gm 12/02/21 10:00 12/19/21 09:51 Polyethylene Glycol 3350 17 Gm Powder PO 17 gm QDAY YOSSI Administration Pravastatin Sodium 20 mg 11/18/21 22:00 12/18/21 21:23 Pravastatin 20 Mg Tab PO 20 mg QHS YOSSI Administration Quetiapine Fumarate 50 mg 12/01/21 22:00 12/18/21 21:22 Quetiapine 25 Mg Tab PO 50 mg QHS YOSSI Administration Simple Syrup 15 ml 11/08/21 11:09 Simple Syrup 15 Ml FEEDTUBE PRN PRN Hypoglycemia Simple Syrup 30 ml 11/08/21 11:09 Simple Syrup 15 Ml FEEDTUBE PRN PRN Hypoglycemia Sodium Bicarbonate 325 mg 11/08/21 11:09 Sodium Bicarbonate 325 Mg Tab FEEDTUBE PRN PRN For Clogged Feeding Tube Sodium Chloride 10 ml 11/04/21 10:00 12/19/21 09:52 Sodium Chloride 0.9% 10 Ml Flush Syringe IV 10 ml BID YOSSI Administration Sodium Chloride 10 ml 11/04/21 02:03 Sodium Chloride 0.9% 10 Ml Flush Syringe IV PRN PRN LINE FLUSH Sucralfate 1 gm 11/18/21 16:30 12/19/21 12:44 Sucralfate 1 Gm/10 Ml Oral Liqd PO 1 gm ACHS YOSSI Administration Trazodone HCl 50 mg 12/04/21 22:00 12/18/21 21:23 Trazodone 50 Mg Tab PO 50 mg QHS YOSSI Administration Nutrition/Malnutrition Assess - Dietary Evaluation Nutrition/Malnutrition Findings: Nutrition Notes Start: 11/04/21 17:16 Freq: Status: Active Protocol: Document 12/15/21 15:12 ISABELL (Rec: 12/15/21 15:41 ISABELL [id number]) Nutrition Notes Initial or Follow up Reassessment Current Diagnosis Diabetes,Sepsis,Hypertension, Heart Failure,Respiratory Failure Other Pertinent Diagnosis Bilateral Pneumonia, L-Pleural Effusion, Pulmonary HTN, HFrEF, GI Bleed. Current Diet TF-Vital AF 1.2 @ 40 ml/hr ( since 11/30) Labs/Tests 12/15: Na 134, Cl 95.7, BUN 28 , Glu 129, Ca 8.2. Pertinent Medications 12/15: Levothyroxine, others nutritionally unremarkable. Height 5 ft Weight 62.4 kg [place] Body Weight (kg) 45.45 BMI 26.9 Weight change and time frame No body weight change reported in 1 month. Weight Status Appropriate Subjective/Other Information RD consult for routine TF tolerance. TF continues as prescribed, well tolerated, no gastric residues, according to RN notes. Pt continues on Mechanical Ventilation. Pt is having difficulties for discharge, due to LTAC refusing transfer at the time. Percent of energy/protein needs met: Prescribed Vital AF 1.2 Tamir @ 40 ml/hr provides for energy/ protein needs (1,150 Kcal/72 g ) during LOS, 95% Kcal; 96% AA . Burn Absent Trauma Absent GI Symptoms Other Difficulty In Swallowing,Chewing Skin Integrity/Comment Lower Extremities Pressure Ulcer. Current % PO Other Minimum of two criteria No #1 Nutrition Diagnosis Inadequate oral intake Diagnosis Progress(for reassessment Continues documentation) Is patient on ventilator? Yes Is Patient Ambulatory and/or Out of Bed No REE-([place]-[facility] Jeor-confined to bed) 1207.824 [facility]culation [facility] Additional Notes Protein: 1.2-2 g/Kg; 75-125 g/ day. Fluids: 1 ml/Kcal, or as per MD. Nutrition Intervention Nutrition Support: Continue Vital AF 1.2 Tamir @ 40 ml/hr. Flush: 65 ml water Q 4 hr, or as per MD. Kcal 1,150 Protein (gm) 72 Carbohydrates (gm) 106 Fat (gm) 52 Fluid (mL) 779 Fiber (gm) 5 % RDI: 95% Kcal; 96% AA. Goal #1 Provide at least 75% of energy /protein needs through Enteral Feeding during LOS. Goal #2 Maintain body weight within +/ -3% of admission body weight during LOS. Follow-Up By: 12/22/21 Additional Comments Continue monitoring TF tolerance and BM. <LEAH ALFONSO E - Last Filed: 12/20/21 07:00> Assessment and Plan Assessment and plan: I saw and evaluated the patient. I agree with the findings and the plan of care as documented in the Nurse Practitioner's~note, with the following corrections and additions. Hospitalist Physical - Constitutional Vitals: Temp Pulse Resp BP Pulse Ox 97.9 F 81 16 93/66 97 12/20/21 04:00 12/20/21 06:01 12/20/21 06:01 12/20/21 06:01 12/20/21 06:01 HEART Score - HEART Score Troponin: Troponin T 0.045 ng/mL (0.00-0.029) H 11/29/21 20:15 Results - Labs CBC & Chem 7: 12/20/21 04:54 12/20/21 04:54 Labs: Laboratory Last Values WBC 12.3 K/mm3 (4.5-11.0) H 12/20/21 04:54 RBC 3.54 M/mm3 (3.65-5.03) L 12/20/21 04:54 Hgb 10.0 gm/dl (10.1-14.3) L 12/20/21 04:54 Hct 29.5 % (30.3-42.9) L 12/20/21 04:54 MCV 83 fl (79-97) 12/20/21 04:54 MCH 28 pg (28-32) 12/20/21 04:54 MCHC 34 % (30-34) 12/20/21 04:54 RDW 17.8 % (13.2-15.2) H 12/20/21 04:54 Plt Count 270 K/mm3 (140-440) 12/20/21 04:54 Add Manual Diff Complete 12/20/21 04:54 Total Counted 100 12/20/21 04:54 Seg Neutrophils % [employer] 11/06/21 15:50 Seg Neuts % (Manual) 88.0 % (40.0-70.0) H 12/20/21 04:54 Band Neutrophils % 0 % 12/20/21 04:54 Lymphocytes % (Manual) 6.0 % (13.4-35.0) L 12/20/21 04:54 Reactive Lymphs % (Man) 0 % 12/20/21 04:54 Monocytes % (Manual) 5.0 % (0.0-7.3) 12/20/21 04:54 Eosinophils % (Manual) 1.0 % (0.0-4.3) 12/20/21 04:54 Basophils % (Manual) 0 % (0.0-1.8) 12/20/21 04:54 Metamyelocytes % 0 % 12/20/21 04:54 Myelocytes % 0 % 12/20/21 04:54 Promyelocytes % 0 % 12/20/21 04:54 Blast Cells % 0 % 12/20/21 04:54 Nucleated RBC % Not Reportable 12/20/21 04:54 Seg Neutrophils # Man 10.8 K/mm3 (1.8-7.7) H 12/20/21 04:54 Band Neutrophils # 0.0 K/mm3 12/20/21 04:54 Lymphocytes # (Manual) 0.7 K/mm3 (1.2-5.4) L 12/20/21 04:54 Abs React Lymphs (Man) 0.0 K/mm3 12/20/21 04:54 Monocytes # (Manual) 0.6 K/mm3 (0.0-0.8) 12/20/21 04:54 Eosinophils # (Manual) 0.1 K/mm3 (0.0-0.4) 12/20/21 04:54 Basophils # (Manual) 0.0 K/mm3 (0.0-0.1) 12/20/21 04:54 Metamyelocytes # 0.0 K/mm3 12/20/21 04:54 Myelocytes # 0.0 K/mm3 12/20/21 04:54 Promyelocytes # 0.0 K/mm3 12/20/21 04:54 Blast Cells # 0.0 K/mm3 12/20/21 04:54 WBC Morphology Not Reportable 12/20/21 04:54 Hypersegmented Neuts Not Reportable 12/20/21 04:54 Hyposegmented Neuts Not Reportable 12/20/21 04:54 Hypogranular Neuts Not Reportable 12/20/21 04:54 Smudge Cells Not Reportable 12/20/21 04:54 Toxic Granulation Not Reportable 12/20/21 04:54 Toxic Vacuolation Not Reportable 12/20/21 04:54 Dohle Bodies Not Reportable 12/20/21 04:54 Pelger-Huet Anomaly Not Reportable 12/20/21 04:54 Irina Rods Not Reportable 12/20/21 04:54 Platelet Estimate Consistent w auto 12/20/21 04:54 Clumped Platelets Not Reportable 12/20/21 04:54 Plt Clumps, EDTA Not Reportable 12/20/21 04:54 Large Platelets Not Reportable 12/20/21 04:54 Giant Platelets Not Reportable 12/20/21 04:54 Platelet Satelliting Not Reportable 12/20/21 04:54 Plt Morphology Comment Not Reportable 12/20/21 04:54 RBC Morphology Not Reportable 12/20/21 04:54 Dimorphic RBCs Not Reportable 12/20/21 04:54 Polychromasia Not Reportable 12/20/21 04:54 Hypochromasia Not Reportable 12/20/21 04:54 Poikilocytosis Not Reportable 12/20/21 04:54 Anisocytosis 1+ 12/20/21 04:54 Microcytosis Not Reportable 12/20/21 04:54 Macrocytosis Not Reportable 12/20/21 04:54 Spherocytes Not Reportable 12/20/21 04:54 Pappenheimer Bodies Not Reportable 12/20/21 04:54 Sickle Cells Not Reportable 12/20/21 04:54 Target Cells Not Reportable 12/20/21 04:54 Tear Drop Cells Not Reportable 12/20/21 04:54 Ovalocytes Not Reportable 12/20/21 04:54 Helmet Cells Not Reportable 12/20/21 04:54 [place] Bodies Not Reportable 12/20/21 04:54 [place] Rings Not Reportable 12/20/21 04:54 Malcom Cells Not Reportable 12/20/21 04:54 Bite Cells Not Reportable 12/20/21 04:54 Crenated Cell Not Reportable 12/20/21 04:54 Elliptocytes Not Reportable 12/20/21 04:54 Acanthocytes (Spur) Not Reportable 12/20/21 04:54 Rouleaux Not Reportable 12/20/21 04:54 Hemoglobin C Crystals Not Reportable 12/20/21 04:54 Schistocytes Not Reportable 12/20/21 04:54 Malaria parasites Not Reportable 12/20/21 04:54 Godfrey Bodies Not Reportable 12/20/21 04:54 Hem Pathologist Commnt No 12/20/21 04:54 PT 16.9 Sec. (12.2-14.9) H 11/26/21 05:00 INR 1.24 (0.87-1.13) H 11/26/21 05:00 APTT 29.2 Sec. (24.2-36.6) 11/26/21 05:00 D-Dimer 2655.00 ng/mlDDU (0-234) H 11/11/21 04:28 ABG pH 7.479 pH Units (7.350-7.450) H 12/16/21 20:52 ABG pCO2 37.5 mm Hg 12/16/21 20:52 ABG pO2 79.3 mm Hg (80.0-90.0) L 12/16/21 20:52 ABG HCO3 27.3 mmol/L (20.0-26.0) H 12/16/21 20:52 ABG O2 Saturation 97.0 % (95.0-99.0) 12/16/21 20:52 ABG O2 Content 12.3 (0.0-44) 12/16/21 20:52 ABG Base Excess 3.6 mmol/L (-2.0-3.0) H 12/16/21 20:52 ABG Hemoglobin 9.1 gm/dl (12.0-16.0) L 12/16/21 20:52 ABG Carboxyhemoglobin 1.6 % (0.0-5.0) 12/16/21 20:52 ABG Methemoglobin 0.5 % (0.0-1.5) 12/16/21 20:52 Oxyhemoglobin 94.9 % (95.0-99.0) L 12/16/21 20:52 FiO2 30 % 12/16/21 20:52 Sodium 131 mmol/L (137-145) L 12/20/21 04:54 Potassium 4.2 mmol/L (3.6-5.0) 12/20/21 04:54 Chloride 96.2 mmol/L (98-107) L 12/20/21 04:54 Carbon Dioxide 24 mmol/L (22-30) 12/20/21 04:54 Anion Gap 15 mmol/L 12/20/21 04:54 BUN 36 mg/dL (7-17) H 12/20/21 04:54 Creatinine 0.5 mg/dL (0.6-1.2) L 12/20/21 04:54 Estimated GFR > 60 ml/min 12/20/21 04:54 BUN/Creatinine Ratio 72 % 12/20/21 04:54 Glucose 130 mg/dL (65-100) H 12/20/21 04:54 POC Glucose 126 mg/dL (70-105) H 12/20/21 05:20 Lactic Acid 3.70 mmol/L (0.7-2.0) H* 11/03/21 22:32 Calcium 8.7 mg/dL (8.4-10.2) 12/20/21 04:54 Phosphorus 2.90 mg/dL (2.5-4.5) 12/18/21 05:04 Magnesium 2.10 mg/dL (1.7-2.3) 12/18/21 05:04 Ferritin 52.6 ng/mL (10.0-200.0) 11/05/21 06:11 Total Bilirubin 0.50 mg/dL (0.1-1.2) 11/17/21 05:56 Direct Bilirubin < 0.2 mg/dL (0-0.2) 11/11/21 04:28 Indirect Bilirubin 0.1 mg/dL 11/11/21 04:28 AST 36 units/L (5-40) 11/17/21 05:56 ALT 47 units/L (7-56) 11/17/21 05:56 Alkaline Phosphatase 107 units/L (35-129) 11/17/21 05:56 Ammonia 42.0 umol/L (25-60) 11/10/21 14:08 Lactate Dehydrogenase 187 units/L (91-180) H 11/05/21 06:11 Troponin T 0.045 ng/mL (0.00-0.029) H 11/29/21 20:15 C-Reactive Protein 22.20 mg/dL (0.00-1.30) H 11/05/21 06:11 NT-Pro-B Natriuret Pep 7895 pg/mL (0-900) H 11/03/21 22:32 Total Protein 5.1 g/dL (6.3-8.2) L 11/17/21 05:56 Albumin 2.2 g/dL (3.9-5) L 11/17/21 05:56 Albumin/Globulin Ratio 0.8 % 11/17/21 05:56 Triglycerides 59 mg/dL (2-149) 11/29/21 20:15 Cholesterol 74 mg/dL (50-199) 11/29/21 20:15 LDL Cholesterol Direct 25 mg/dL (50-130) L 11/29/21 20:15 HDL Cholesterol 41 mg/dL (40-59) 11/29/21 20:15 Cholesterol/HDL Ratio 1.80 % 11/29/21 20:15 Vitamin B12 1823 pg/mL (211-911) H 11/10/21 14:08 TSH 1.510 mlU/mL (0.270-4.200) 11/10/21 14:08 Urine Color Yellow (Yellow) 11/11/21 09:00 Urine Turbidity Slightly-cloudy (Clear) 11/11/21 09:00 Urine pH 5.0 (5.0-7.0) 11/11/21 09:00 Ur Specific [place] 1.009 (1.003-1.030) 11/11/21 09:00 Urine Protein <15 mg/dl mg/dL (Negative) 11/11/21 09:00 Urine Glucose (UA) Neg mg/dL (Negative) 11/11/21 09:00 Urine Ketones Neg mg/dL (Negative) 11/11/21 09:00 Urine Blood Mod (Negative) 11/11/21 09:00 Urine Nitrite Neg (Negative) 11/11/21 09:00 Urine Bilirubin Neg (Negative) 11/11/21 09:00 Urine Urobilinogen < 2.0 mg/dL (<2.0) 11/11/21 09:00 Ur Leukocyte Esterase Neg (Negative) 11/11/21 09:00 Urine WBC (Auto) < 1.0 /HPF (0.0-6.0) 11/11/21 09:00 Urine RBC (Auto) < 1.0 /HPF (0.0-6.0) 11/11/21 09:00 Vancomycin Trough 15.5 ug/mL (5.0-20.0) 12/19/21 13:48 Coronavirus (PCR) Negative (Negative) 11/10/21 08:30 Blood Type O POSITIVE 12/14/21 10:30 Antibody Screen Negative 12/14/21 10:30 Crossmatch See Detail 12/14/21 10:30 Microbiology: Microbiology 12/16/21 Unknown Tracheal Aspirate Sputum Culture - Final Methicillin Resist S. Aureus 12/16/21 15:09 Peripheral/Venous Blood Culture - Final Methicillin Resist S. Aureus 12/16/21 14:53 Peripheral/Venous Blood Culture - Final Methicillin Resist S. Aureus 12/19/21 09:36 Peripheral/Venous Blood Culture - Preliminary Culture in Progress 12/19/21 09:36 Peripheral/Venous Blood Culture - Preliminary Culture in Progress Gamble/IV: Voiding Method Indwelling Catheter Active Medications - Current Medications Current Medications: Generic Name Dose Route Start Last Admin Trade Name Freq PRN Reason Stop Dose Admin Acetaminophen 650 mg 12/14/21 04:12 12/16/21 13:34 Acetaminophen 325 Mg/10.15 Ml Oral Liqd Unit Dose FEEDTUBE 650 mg Q6H PRN Administration Non Cardiac Pain or Temp>100.5 Hydrocodone Bitart/Acetaminophen 1 each 11/21/21 10:00 12/19/21 21:52 Hydrocodone/Acetaminophen 10-325mg Tab FEEDTUBE 1 each TID YOSSI Administration Alprazolam 0.25 mg 12/14/21 09:00 12/20/21 03:35 Alprazolam 0.25 Mg Tab PO 0.25 mg Q8H PRN Administration Agitation Lipase/Protease/Amylase 1 each 11/08/21 11:09 Lipase 10,500/Protease 25,000/Amylase 43,750 (Units) Dr Lema FEEDTUBE PRN PRN For Clogged Feeding Tube Buspirone HCl 7.5 mg 11/17/21 22:00 12/19/21 21:52 Buspirone 5 Mg Tab PO 7.5 mg BID YOSSI Administration Dextrose 0 ml 11/10/21 10:52 11/21/21 16:27 Dextrose 10% *Hypoglycemia IV 50 ml PRN PRN Administration Hypoglycemia Docusate Sodium 100 mg 12/04/21 11:00 12/19/21 21:55 Docusate Sodium 100 Mg/10 Ml Oral Liqd PO 100 mg BID YOSSI Administration Furosemide 20 mg 12/09/21 10:00 12/19/21 09:51 Furosemide 20 Mg Tab PO 20 mg QDAY YOSSI Administration Gabapentin 100 mg 12/01/21 10:00 12/19/21 09:50 Gabapentin 100 Mg Cap PO 100 mg QDAY YOSSI Administration Hydromorphone HCl 0.5 mg 12/08/21 20:06 12/20/21 03:35 Hydromorphone 1 Mg/1 Ml Inj IV 0.5 mg Q3H PRN Administration Pain, Moderate (4-6) Hydrophilic Ointment 1 applic 11/06/21 04:02 Lip Therapy Vaseline TP Q2HR PRN Dry Lips Cefepime HCl 2 gm in 100 mls @ 200 mls/hr 12/16/21 14:00 12/20/21 02:59 Cefepime/Ns 2 Gm/100 Ml IV 200 mls/hr Q12H YOSSI Administration Protocol Vancomycin HCl 1 gm in 250 mls @ 166.667 mls/hr 12/16/21 14:00 12/19/21 14:53 Vancomycin/Ns 1 Gm/250 Ml IV 166.66 mls/hr Q24H YOSSI Administration Protocol Lansoprazole 30 mg 11/24/21 22:00 12/19/21 21:52 Lansoprazole 30 Mg Solutab FEEDTUBE 30 mg BID YOSSI Administration Levothyroxine Sodium 125 mcg 11/05/21 07:00 12/20/21 06:42 Levothyroxine 125 Mcg Tab PO 125 mcg DAILY@0600 YOSSI Administration Melatonin 5 mg 12/05/21 22:00 12/19/21 21:52 Melatonin 5 Mg Tab PO 5 mg QHS YOSSI Administration Metoprolol Tartrate 6.25 mg 12/08/21 22:52 12/19/21 21:53 Metoprolol Tartrate 25 Mg Tab PO 6.25 mg BID YOSSI Administration Midodrine 5 mg 12/16/21 20:00 12/19/21 21:54 Midodrine 5 Mg Tab PO 5 mg 0800,2000 [facility] Administration Multi-Ingred Cream/Lotion/Oil/Oint 1 applic 11/06/21 04:02 Mineral Oil/Petrolatum, White Ophth Oint 3.5 Gm OU Q4HR PRN Dry Eye(s) Nitroglycerin 0.4 mg 11/30/21 11:36 Nitroglycerin 0.4 Mg Tab Subl SL .Q5MIN PRN Chest Pain Ondansetron HCl 4 mg 12/05/21 10:00 12/08/21 05:17 Ondansetron 4 Mg/2 Ml Inj IV 4 mg Q8H PRN Administration Nausea And Vomiting Polyethylene Glycol 17 gm 12/02/21 10:00 12/19/21 09:51 Polyethylene Glycol 3350 17 Gm Powder PO 17 gm QDAY YOSSI Administration Pravastatin Sodium 20 mg 11/18/21 22:00 12/19/21 21:54 Pravastatin 20 Mg Tab PO 20 mg QHS YOSSI Administration Quetiapine Fumarate 50 mg 12/01/21 22:00 12/19/21 21:54 Quetiapine 25 Mg Tab PO 50 mg QHS YOSSI Administration Simple Syrup 15 ml 11/08/21 11:09 Simple Syrup 15 Ml FEEDTUBE PRN PRN Hypoglycemia Simple Syrup 30 ml 11/08/21 11:09 Simple Syrup 15 Ml FEEDTUBE PRN PRN Hypoglycemia Sodium Bicarbonate 325 mg 11/08/21 11:09 Sodium Bicarbonate 325 Mg Tab FEEDTUBE PRN PRN For Clogged Feeding Tube Sodium Chloride 10 ml 11/04/21 10:00 12/19/21 21:58 Sodium Chloride 0.9% 10 Ml Flush Syringe IV 10 ml BID YOSSI Administration Sodium Chloride 10 ml 11/04/21 02:03 Sodium Chloride 0.9% 10 Ml Flush Syringe IV PRN PRN LINE FLUSH Sucralfate 1 gm 11/18/21 16:30 12/19/21 21:55 Sucralfate 1 Gm/10 Ml Oral Liqd PO 1 gm ACHS YOSSI Administration Trazodone HCl 50 mg 12/04/21 22:00 12/19/21 21:52 Trazodone 50 Mg Tab PO 50 mg QHS YOSSI Administration Nutrition/Malnutrition Assess - Dietary Evaluation Nutrition/Malnutrition Findings: Nutrition Notes Start: 11/04/21 17:16 Freq: Status: Active Protocol: Document 12/15/21 15:12 ISABELL (Rec: 12/15/21 15:41 ISABELL [id number]) Nutrition Notes Initial or Follow up Reassessment Current Diagnosis Diabetes,Sepsis,Hypertension, Heart Failure,Respiratory Failure Other Pertinent Diagnosis Bilateral Pneumonia, L-Pleural Effusion, Pulmonary HTN, HFrEF, GI Bleed. Current Diet TF-Vital AF 1.2 @ 40 ml/hr ( since 11/30) Labs/Tests 12/15: Na 134, Cl 95.7, BUN 28 , Glu 129, Ca 8.2. Pertinent Medications 12/15: Levothyroxine, others nutritionally unremarkable. Height 5 ft Weight 62.4 kg [place] Body Weight (kg) 45.45 BMI 26.9 Weight change and time frame No body weight change reported in 1 month. Weight Status Appropriate Subjective/Other Information RD consult for routine TF tolerance. TF continues as prescribed, well tolerated, no gastric residues, according to RN notes. Pt continues on Mechanical Ventilation. Pt is having difficulties for discharge, due to LTAC refusing transfer at the time. Percent of energy/protein needs met: Prescribed Vital AF 1.2 Tamir @ 40 ml/hr provides for energy/ protein needs (1,150 Kcal/72 g ) during LOS, 95% Kcal; 96% AA . Burn Absent Trauma Absent GI Symptoms Other Difficulty In Swallowing,Chewing Skin Integrity/Comment Lower Extremities Pressure Ulcer. Current % PO Other Minimum of two criteria No #1 Nutrition Diagnosis Inadequate oral intake Diagnosis Progress(for reassessment Continues documentation) Is patient on ventilator? Yes Is Patient Ambulatory and/or Out of Bed No REE-([place]-St. Jeor-confined to bed) 1207.824 Calculation Used for Recommendations [place]-St Jeor Additional Notes Protein: 1.2-2 g/Kg; 75-125 g/ day. Fluids: 1 ml/Kcal, or as per MD. Nutrition Intervention Nutrition Support: Continue Vital AF 1.2 Tamir @ 40 ml/hr. Flush: 65 ml water Q 4 hr, or as per MD. Kcal 1,150 Protein (gm) 72 Carbohydrates (gm) 106 Fat (gm) 52 Fluid (mL) 779 Fiber (gm) 5 % RDI: 95% Kcal; 96% AA. Goal #1 Provide at least 75% of energy /protein needs through Enteral Feeding during LOS. Goal #2 Maintain body weight within +/ -3% of admission body weight during LOS. Follow-Up By: 12/22/21 Additional Comments Continue monitoring TF tolerance and BM.
[2021-12-19] MEDS: VANCOMYCIN/NS 1 GM/250 ML 1 GM/250 ML BAG IV SCH (14:53)
--- NOTE | 2021-12-19 15:08 | Progress Note ---
Assessment and Plan Cultures: SARS CoV2 PCR: negative 11/03/2021 blood culture: Group B streptococcus 11/04/2021 blood culture: no growth 11/11/2021 blood culture: No growth 12/16/2021 tracheal aspirate culture no growth so far 12/16/2021 blood culture no growth so far A/P: 81-year-old female with diabetes mellitus, hypertension, arthritis was admitted with shortness of breath. She was also having fever: #Acute fevers: Likely secondary to MRSA bacteremia and pneumonia #MRSA bacteremia: Likely secondary to pneumonia #Acute hypoxic respiratory failure: Secondary to above. Tracheostomy, on the vent. #Acute DVT: unable to anticoagulate Recs: -Continue vancomycin goal trough 10-20 -Stop cefepime -Follow up repeat blood cultures -Ordered TTE Will follow. Mahogany Montes MD [facility] ([facility]) O: [phone] F: [phone] Subjective Date of service: 12/19/21 Principal diagnosis: Septic shock; AHRF; Anemia; Pneumonia; pleural effusion; HFrEF; Pulm HTN Interval history: Afebrile, white count 16. Blood and sputum cultures with MRSA. Objective - Exam Narrative Exam: Physical exam deferred to reduce risk of transmission of COVID-19. Please refer to primary team's note. - Constitutional Vitals: Vital Signs Temp Pulse Resp BP Pulse Ox 97.2 F L 89 19 161/99 96 12/19/21 11:56 12/19/21 14:00 12/19/21 14:00 12/19/21 14:00 12/19/21 14:00 Temperature -Last 24 Hours Temperature 97.2 F Temperature 97 F Temperature 97.6 F Temperature 97.4 F Temperature 97.8 F Temperature 98.7 F - Labs CBC & Chem 7: 12/19/21 04:41 12/19/21 04:41 Labs: Abnormal lab results 12/18/21 12/19/21 12/19/21 Range/Units 16:27 00:02 04:41 WBC 16.0 H (4.5-11.0) K/mm3 RBC 3.45 L (3.65-5.03) M/mm3 Hgb 9.7 L (10.1-14.3) gm/dl Hct 29.1 L (30.3-42.9) % RDW 17.8 H (13.2-15.2) % Sodium (137-145) mmol/L Chloride (98-107) mmol/L BUN (7-17) mg/dL Creatinine (0.6-1.2) mg/dL Glucose (65-100) mg/dL POC Glucose 130 H 127 H (70-105) mg/dL Calcium (8.4-10.2) mg/dL 12/19/21 12/19/21 12/19/21 Range/Units 04:41 05:26 12:20 WBC (4.5-11.0) K/mm3 RBC (3.65-5.03) M/mm3 Hgb (10.1-14.3) gm/dl Hct (30.3-42.9) % RDW (13.2-15.2) % Sodium 133 L (137-145) mmol/L Chloride 97.9 L (98-107) mmol/L BUN 36 H (7-17) mg/dL Creatinine 0.5 L (0.6-1.2) mg/dL Glucose 126 H (65-100) mg/dL POC Glucose 119 H 145 H (70-105) mg/dL Calcium 8.3 L (8.4-10.2) mg/dL
[2021-12-19] MEDS: MELATONIN 5 MG TAB PO SCH (21:52)
[2021-12-19] MEDS: traZODone 50 MG TAB PO SCH (21:52)
[2021-12-19] MEDS: QUEtiapine 25 MG TAB PO SCH (21:54)
[2021-12-19] MEDS: PRAVASTATIN 20 MG TAB PO SCH (21:54)
[2021-12-20] MEDS: CEFEPIME/NS 2 GM/100 ML 2 GM/100 ML BAG IV SCH (02:59)
[2021-12-20] MEDS: ALPRAZolam 0.25 MG TAB PO PRN ×3 (03:35→20:26)
[2021-12-20] MEDS: HYDROmorphone 1 MG/1 ML INJ IV PRN (03:35)
[2021-12-20 05:36] LABS: Hematocrit 29.5 % (30.3-42.9); Mean Corpuscular HGB Conc 34 % (30-34); Mean Corpuscular Volume 83 fl (79-97); Platelet Count 270 K/mm3 (140-440); Red Blood Count 3.54 M/mm3 (3.65-5.03); Red Cell Distribution Width 17.8 % (13.2-15.2)
[2021-12-20 05:49] LABS: Blood Urea Nitrogen 36 mg/dL (7-17); Calcium 8.7 mg/dL (8.4-10.2); Hemolysis Index 17
[2021-12-20 05:59] LABS: BUN/Creatinine Ratio 72
[2021-12-20 06:38] LABS: Anisocytosis 1+; Basophils % (Manual) 0 % (0.0-1.8); Platelet Estimate Consistent w Auto; Total Cells Counted 100
[2021-12-20] MEDS: LEVOTHYROXINE 125 MCG TAB PO SCH (06:42)
--- NOTE | 2021-12-20 07:00 | Progress Note ---
Assessment and Plan Severe Sepsis POA vs septic shock- 11/03/2021 blood culture: 2 sets positive for GPC -Repeat cultures positive for MRSA Acute respiratory failure with hypoxia, s/p trach on MVS Acute microcytic anemia Bilateral pneumonia Left pleural effusion Cardiomyopathy EF 30-35% Moderate pulmonary HTN RVSP 49 Acute DVT s/p IVC Anemia Mild hyponatremia Daily SBTs as tolerated. Conservative fluid management as tolerated by hemodynamics and renal function Continue to monitor hemoglobin and transfuse as clinically indicated to keep HgB>7g/dL Continue to optimize enteric nutritional support Maintain sleep-wake cycle PT/OT, increase activity Antibiotics- Vancomcyin per ID Echocardiogram pending - continue to titrate supplemental oxygen to keep SPO2 88-90% - VAP bundle addressed, aspiration precautions, HOB >40 - continue bronchodilators with pulmonary hygiene per RT - continue avoid nephrotoxins, renally dose all medications - Accuchecks with glycemic control per SSI (While critically ill target blood glucose of 140-180 mg/dL; avoid hypoglycemia) - continue to avoid benzodiazepines, reduce the possibility of delirium -trend temperature curve, trend WCC, continue to monitor off antibiotics - Maintenance of sleep-wake cycle, avoid delirium -Stress ulcer prophylaxis (Lansoprazole) -VTE prophyalxis- s/p IVC filter. No anticoagulation 11/18 EGD- Large cratered ulcer in the posterior duodenal bulb about 2 cm in diameter.Visible vessel present. Mild active oozing from the ulcer bed. A total of 3 injections were performed around the ulcer for a total of 2.5 cc of dilute epinephrine and hemostasis was obtained. -mobility, off loading and frequent turning to prevent pressure ulcer -continue with enteric nutritional support via PEG, at goal rate - Continue to monitor hemodynamics closely - continue other care per attending / other consultants COVID SPECIFIC INTERVENTIONS - Negative CONDITION: FAIR PROGNOSIS: GUARDED CODE STATUS: FULL CODE The high probability of a clinically significant, sudden or life-threatening deterioration of the [respiratory, cardiovascular and hematologic] system(s) required my full and direct attention, intervention and personal management. The aggregate critical care time was [33] minutes without overlap. Time includes spent on; [x] Data Review and interpretation [x] Patient assessment and monitoring of vital signs [x] Documentation [x] Medication orders and management Subjective Date of service: 12/20/21 Principal diagnosis: Septic shock; AHRF; Anemia; Pneumonia; pleural effusion; HFrEF; Pulm HTN Interval history: Follow up fro acute hypoxemic resp failure s/p tracheostomy to MVS ; Septic and cardiogenic shock; severe anemia; Patient seen and examined. Vitals, labs, medications, chart and imaging reviewed. Discussed with respiratory and nursing care staff. On full support, not tolerating SBTs. MRSA pneumonia and bacteremia on Vancomcyin. Echo pending Objective Vital Signs - 12hr 12/19/21 12/19/21 12/19/21 19:00 20:00 21:00 Temperature 99.0 F Pulse Rate 89 94 H 91 H Pulse Rate [ 82 From Monitor] Respiratory 22 16 24 Rate Blood Pressure 135/69 127/86 134/77 O2 Sat by Pulse 97 96 94 Oximetry O2 Sat by Pulse Oximetry [ Assessment] 12/19/21 12/19/21 12/19/21 21:53 22:00 22:23 Temperature Pulse Rate 100 H 102 H 97 H Pulse Rate [ From Monitor] Respiratory 17 Rate Blood Pressure 96/75 96/75 133/77 O2 Sat by Pulse 96 95 Oximetry O2 Sat by Pulse Oximetry [ Assessment] 12/19/21 12/20/21 12/20/21 23:01 00:00 01:01 Temperature 97.9 F Pulse Rate 84 71 78 Pulse Rate [ 82 From Monitor] Respiratory 15 16 22 Rate Blood Pressure 133/77 80/40 97/57 O2 Sat by Pulse 94 100 94 Oximetry O2 Sat by Pulse Oximetry [ Assessment] 12/20/21 12/20/21 12/20/21 01:28 01:38 02:00 Temperature Pulse Rate 75 75 Pulse Rate [ From Monitor] Respiratory 15 Rate Blood Pressure 97/57 101/56 O2 Sat by Pulse 97 96 Oximetry O2 Sat by Pulse 98 Oximetry [ Assessment] 12/20/21 12/20/21 12/20/21 03:00 04:00 04:38 Temperature 97.9 F Pulse Rate 79 77 80 Pulse Rate [ 82 From Monitor] Respiratory 21 12 Rate Blood Pressure 100/49 102/57 102/57 O2 Sat by Pulse 96 96 97 Oximetry O2 Sat by Pulse Oximetry [ Assessment] 12/20/21 12/20/21 05:01 06:01 Temperature Pulse Rate 80 81 Pulse Rate [ From Monitor] Respiratory 24 16 Rate Blood Pressure 93/66 93/66 O2 Sat by Pulse 97 97 Oximetry O2 Sat by Pulse Oximetry [ Assessment] Constitutional: alert, appears uncomfortable (restless really), other (trach to MVS, frail elderly woman with mildly increased respiratory effort at rest) Eyes: non-icteric ENT: oropharynx moist, other (+ Midline tracheostomy with minimal secretions) Neck: supple, no lymphadenopathy, no JVD Effort: mildly labored Ascultation: Bilateral: diminished breath sounds, rhonchi, other (Right chest tube) Percussion: Bilateral: not dull Cardiovascular: regular rate and rhythm, other (S1,S2) Gastrointestinal: normoactive bowel sounds, soft, non-tender, non-distended (protuberant) Integumentary: normal Extremities: no cyanosis, pink and warm, pulses normal, edema (upper etremities) Neurologic: non-focal exam (grossly), pupils equal and round, motor strength normal and Psychiatric: affect normal CBC and BMP: 12/20/21 04:54 12/20/21 04:54 ABG, PT/INR, D-dimer: ABG ABG pH 7.479 pH Units (7.350-7.450) H 12/16/21 20:52 ABG pCO2 37.5 mm Hg 12/16/21 20:52 ABG pO2 79.3 mm Hg (80.0-90.0) L 12/16/21 20:52 ABG O2 Saturation 97.0 % (95.0-99.0) 12/16/21 20:52 PT/INR, D-dimer PT 16.9 Sec. (12.2-14.9) H 11/26/21 05:00 INR 1.24 (0.87-1.13) H 11/26/21 05:00 D-Dimer 2655.00 ng/mlDDU (0-234) H 11/11/21 04:28 Abnormal lab findings: Abnormal Labs 11/03/21 11/03/21 11/03/21 22:32 22:32 22:32 WBC 29.3 H RBC 2.93 L Hgb 6.1 L Hct 21.9 L MCV 75 L MCH 21 L MCHC 28 L RDW 19.7 H Plt Count Seg Neuts % (Manual) 97.0 H Lymphocytes % (Manual) 3.0 L Seg Neutrophils # Man 28.4 H Lymphocytes # (Manual) 0.9 L Monocytes # (Manual) PT 18.6 H INR 1.40 H D-Dimer ABG pH ABG pO2 ABG HCO3 ABG O2 Saturation ABG Base Excess ABG Hemoglobin Oxyhemoglobin Sodium Potassium Chloride Carbon Dioxide 20 L BUN 33 H Creatinine Glucose 119 H POC Glucose Lactic Acid Calcium 8.3 L Phosphorus Magnesium AST ALT Alkaline Phosphatase Lactate Dehydrogenase Troponin T 0.035 H C-Reactive Protein NT-Pro-B Natriuret Pep Total Protein Albumin LDL Cholesterol Direct 34 L Vitamin B12 Crossmatch 11/03/21 11/03/21 11/03/21 22:32 22:32 23:57 WBC RBC Hgb Hct MCV MCH MCHC RDW Plt Count Seg Neuts % (Manual) Lymphocytes % (Manual) Seg Neutrophils # Man Lymphocytes # (Manual) Monocytes # (Manual) PT INR D-Dimer ABG pH ABG pO2 ABG HCO3 ABG O2 Saturation ABG Base Excess ABG Hemoglobin Oxyhemoglobin Sodium Potassium Chloride Carbon Dioxide BUN Creatinine Glucose POC Glucose Lactic Acid 3.70 H* Calcium Phosphorus Magnesium AST ALT Alkaline Phosphatase 139 H Lactate Dehydrogenase Troponin T C-Reactive Protein NT-Pro-B Natriuret Pep 7895 H Total Protein Albumin 3.5 L LDL Cholesterol Direct Vitamin B12 Crossmatch See Detail 11/04/21 11/04/21 11/05/21 00:59 13:58 00:51 WBC 27.9 H RBC 3.28 L Hgb 7.3 L Hct 25.5 L MCV 78 L MCH 22 L MCHC 29 L RDW 19.1 H Plt Count Seg Neuts % (Manual) 96.0 H Lymphocytes % (Manual) 2.0 L Seg Neutrophils # Man 26.8 H Lymphocytes # (Manual) 0.6 L Monocytes # (Manual) PT INR D-Dimer ABG pH ABG pO2 ABG HCO3 ABG O2 Saturation ABG Base Excess ABG Hemoglobin Oxyhemoglobin Sodium Potassium Chloride Carbon Dioxide BUN Creatinine Glucose POC Glucose Lactic Acid Calcium Phosphorus Magnesium AST ALT Alkaline Phosphatase Lactate Dehydrogenase Troponin T 0.051 H D 0.032 H D C-Reactive Protein NT-Pro-B Natriuret Pep Total Protein Albumin LDL Cholesterol Direct Vitamin B12 Crossmatch 11/05/21 11/05/21 11/05/21 06:11 06:11 06:11 WBC 31.8 H RBC 3.57 L Hgb 8.0 L Hct 27.7 L MCV 78 L MCH 22 L MCHC 29 L RDW 19.2 H Plt Count Seg Neuts % (Manual) 91.0 H Lymphocytes % (Manual) 4.5 L Seg Neutrophils # Man 28.9 H Lymphocytes # (Manual) Monocytes # (Manual) 1.1 H PT INR D-Dimer 1494.53 H ABG pH ABG pO2 ABG HCO3 ABG O2 Saturation ABG Base Excess ABG Hemoglobin Oxyhemoglobin Sodium Potassium Chloride Carbon Dioxide 19 L BUN 42 H Creatinine Glucose 115 H POC Glucose Lactic Acid Calcium Phosphorus Magnesium AST 43 H ALT Alkaline Phosphatase Lactate Dehydrogenase 187 H Troponin T C-Reactive Protein 22.20 H NT-Pro-B Natriuret Pep Total Protein 6.0 L Albumin 3.2 L LDL Cholesterol Direct Vitamin B12 Crossmatch 11/05/21 11/05/21 11/06/21 06:11 12:15 00:30 WBC RBC Hgb Hct MCV MCH MCHC RDW Plt Count Seg Neuts % (Manual) Lymphocytes % (Manual) Seg Neutrophils # Man Lymphocytes # (Manual) Monocytes # (Manual) PT INR D-Dimer ABG pH ABG pO2 ABG HCO3 ABG O2 Saturation ABG Base Excess ABG Hemoglobin Oxyhemoglobin Sodium Potassium Chloride Carbon Dioxide BUN Creatinine Glucose POC Glucose 113 H 69 L Lactic Acid Calcium Phosphorus Magnesium AST ALT Alkaline Phosphatase Lactate Dehydrogenase Troponin T 0.033 H C-Reactive Protein NT-Pro-B Natriuret Pep Total Protein Albumin LDL Cholesterol Direct Vitamin B12 Crossmatch 11/06/21 11/06/21 11/06/21 05:50 15:50 15:50 WBC 25.5 H RBC 3.62 L Hgb 8.0 L Hct 27.5 L MCV 76 L MCH 22 L MCHC 29 L RDW 19.6 H Plt Count Seg Neuts % (Manual) 92.0 H Lymphocytes % (Manual) 5.0 L Seg Neutrophils # Man 23.5 H Lymphocytes # (Manual) Monocytes # (Manual) PT INR D-Dimer ABG pH 7.305 L ABG pO2 ABG HCO3 15.8 L ABG O2 Saturation ABG Base Excess -9.6 L ABG Hemoglobin 8.6 L Oxyhemoglobin 94.6 L Sodium Potassium Chloride 113.9 H Carbon Dioxide 17 L BUN 56 H Creatinine Glucose 114 H POC Glucose Lactic Acid Calcium 7.9 L Phosphorus Magnesium AST 1410 H ALT 934 H Alkaline Phosphatase 142 H Lactate Dehydrogenase Troponin T C-Reactive Protein NT-Pro-B Natriuret Pep Total Protein 5.0 L Albumin 2.6 L LDL Cholesterol Direct Vitamin B12 Crossmatch 11/07/21 11/07/21 11/07/21 03:30 04:50 08:07 WBC RBC Hgb Hct MCV MCH MCHC RDW Plt Count Seg Neuts % (Manual) Lymphocytes % (Manual) Seg Neutrophils # Man Lymphocytes # (Manual) Monocytes # (Manual) PT INR D-Dimer ABG pH ABG pO2 296.9 H ABG HCO3 18.1 L ABG O2 Saturation 99.5 H ABG Base Excess -5.9 L ABG Hemoglobin 7.6 L Oxyhemoglobin Sodium Potassium Chloride Carbon Dioxide BUN Creatinine Glucose POC Glucose 106 H 108 H Lactic Acid Calcium Phosphorus Magnesium AST ALT Alkaline Phosphatase Lactate Dehydrogenase Troponin T C-Reactive Protein NT-Pro-B Natriuret Pep Total Protein Albumin LDL Cholesterol Direct Vitamin B12 Crossmatch 11/08/21 11/08/21 11/08/21 03:10 18:05 23:43 WBC RBC Hgb Hct MCV MCH MCHC RDW Plt Count Seg Neuts % (Manual) Lymphocytes % (Manual) Seg Neutrophils # Man Lymphocytes # (Manual) Monocytes # (Manual) PT INR D-Dimer ABG pH ABG pO2 127.4 H ABG HCO3 ABG O2 Saturation ABG Base Excess -3.4 L ABG Hemoglobin 7.4 L Oxyhemoglobin Sodium Potassium Chloride Carbon Dioxide BUN Creatinine Glucose POC Glucose 113 H 141 H Lactic Acid Calcium Phosphorus Magnesium AST ALT Alkaline Phosphatase Lactate Dehydrogenase Troponin T C-Reactive Protein NT-Pro-B Natriuret Pep Total Protein Albumin LDL Cholesterol Direct Vitamin B12 Crossmatch 11/08/21 11/08/21 11/09/21 Unknown Unknown 02:00 WBC 14.5 H RBC 3.35 L Hgb 7.5 L 8.1 L Hct 25.4 L 27.6 L MCV 76 L 76 L MCH 23 L 22 L MCHC RDW 19.9 H 19.9 H Plt Count Seg Neuts % (Manual) Lymphocytes % (Manual) Seg Neutrophils # Man Lymphocytes # (Manual) Monocytes # (Manual) PT INR D-Dimer ABG pH ABG pO2 ABG HCO3 ABG O2 Saturation ABG Base Excess ABG Hemoglobin Oxyhemoglobin Sodium 154 H D Potassium 3.3 L Chloride 120.7 H Carbon Dioxide 20 L BUN 38 H Creatinine Glucose POC Glucose Lactic Acid Calcium 8.3 L Phosphorus Magnesium AST ALT Alkaline Phosphatase Lactate Dehydrogenase Troponin T C-Reactive Protein NT-Pro-B Natriuret Pep Total Protein Albumin LDL Cholesterol Direct Vitamin B12 Crossmatch 11/09/21 11/09/21 11/09/21 02:00 02:31 05:12 WBC RBC Hgb Hct MCV MCH MCHC RDW Plt Count Seg Neuts % (Manual) Lymphocytes % (Manual) Seg Neutrophils # Man Lymphocytes # (Manual) Monocytes # (Manual) PT INR D-Dimer ABG pH 7.479 H ABG pO2 121.3 H ABG HCO3 ABG O2 Saturation ABG Base Excess ABG Hemoglobin 7.3 L Oxyhemoglobin Sodium Potassium Chloride 112.5 H Carbon Dioxide BUN 33 H Creatinine Glucose 161 H POC Glucose 135 H Lactic Acid Calcium Phosphorus Magnesium AST 251 H ALT 481 H Alkaline Phosphatase Lactate Dehydrogenase Troponin T C-Reactive Protein NT-Pro-B Natriuret Pep Total Protein 5.0 L Albumin 2.8 L LDL Cholesterol Direct Vitamin B12 Crossmatch 11/09/21 11/09/21 11/09/21 11:33 16:32 23:28 WBC RBC Hgb Hct MCV MCH MCHC RDW Plt Count Seg Neuts % (Manual) Lymphocytes % (Manual) Seg Neutrophils # Man Lymphocytes # (Manual) Monocytes # (Manual) PT INR D-Dimer ABG pH ABG pO2 ABG HCO3 ABG O2 Saturation ABG Base Excess ABG Hemoglobin Oxyhemoglobin Sodium Potassium Chloride Carbon Dioxide BUN Creatinine Glucose POC Glucose 132 H 133 H 143 H Lactic Acid Calcium Phosphorus Magnesium AST ALT Alkaline Phosphatase Lactate Dehydrogenase Troponin T C-Reactive Protein NT-Pro-B Natriuret Pep Total Protein Albumin LDL Cholesterol Direct Vitamin B12 Crossmatch 11/10/21 11/10/21 11/10/21 04:00 04:00 05:35 WBC 16.0 H RBC 3.61 L Hgb 8.0 L Hct 27.1 L MCV 75 L MCH 22 L MCHC RDW 20.4 H Plt Count Seg Neuts % (Manual) Lymphocytes % (Manual) Seg Neutrophils # Man Lymphocytes # (Manual) Monocytes # (Manual) PT INR D-Dimer ABG pH ABG pO2 ABG HCO3 ABG O2 Saturation ABG Base Excess ABG Hemoglobin Oxyhemoglobin Sodium 149 H Potassium Chloride 114.1 H Carbon Dioxide BUN 31 H Creatinine Glucose 148 H POC Glucose 132 H Lactic Acid Calcium 8.2 L Phosphorus Magnesium AST ALT Alkaline Phosphatase Lactate Dehydrogenase Troponin T C-Reactive Protein NT-Pro-B Natriuret Pep Total Protein Albumin LDL Cholesterol Direct Vitamin B12 Crossmatch 11/10/21 11/10/21 11/10/21 11:31 14:08 15:35 WBC RBC Hgb Hct MCV MCH MCHC RDW Plt Count Seg Neuts % (Manual) Lymphocytes % (Manual) Seg Neutrophils # Man Lymphocytes # (Manual) Monocytes # (Manual) PT INR D-Dimer ABG pH ABG pO2 126.6 H ABG HCO3 ABG O2 Saturation ABG Base Excess ABG Hemoglobin 7.4 L Oxyhemoglobin Sodium Potassium Chloride Carbon Dioxide BUN Creatinine Glucose POC Glucose 147 H Lactic Acid Calcium Phosphorus Magnesium AST ALT Alkaline Phosphatase Lactate Dehydrogenase Troponin T C-Reactive Protein NT-Pro-B Natriuret Pep Total Protein Albumin LDL Cholesterol Direct Vitamin B12 1823 H Crossmatch 11/10/21 11/11/21 11/11/21 17:53 00:55 04:28 WBC RBC Hgb Hct MCV MCH MCHC RDW Plt Count Seg Neuts % (Manual) Lymphocytes % (Manual) Seg Neutrophils # Man Lymphocytes # (Manual) Monocytes # (Manual) PT INR D-Dimer ABG pH ABG pO2 ABG HCO3 ABG O2 Saturation ABG Base Excess ABG Hemoglobin Oxyhemoglobin Sodium 149 H Potassium Chloride 112.2 H Carbon Dioxide BUN 34 H Creatinine Glucose 148 H POC Glucose 140 H 145 H Lactic Acid Calcium 7.9 L Phosphorus Magnesium AST 53 H ALT 203 H Alkaline Phosphatase Lactate Dehydrogenase Troponin T C-Reactive Protein NT-Pro-B Natriuret Pep Total Protein 4.9 L Albumin 2.6 L LDL Cholesterol Direct Vitamin B12 Crossmatch 11/11/21 11/11/21 11/11/21 04:28 04:28 05:28 WBC 20.9 H RBC 3.47 L Hgb 7.5 L Hct 26.0 L MCV 75 L MCH 22 L MCHC 29 L RDW 21.6 H Plt Count 132 L Seg Neuts % (Manual) Lymphocytes % (Manual) Seg Neutrophils # Man Lymphocytes # (Manual) Monocytes # (Manual) PT INR D-Dimer 2655.00 H ABG pH ABG pO2 ABG HCO3 ABG O2 Saturation ABG Base Excess ABG Hemoglobin Oxyhemoglobin Sodium Potassium Chloride Carbon Dioxide BUN Creatinine Glucose POC Glucose 154 H Lactic Acid Calcium Phosphorus Magnesium AST ALT Alkaline Phosphatase Lactate Dehydrogenase Troponin T C-Reactive Protein NT-Pro-B Natriuret Pep Total Protein Albumin LDL Cholesterol Direct Vitamin B12 Crossmatch 11/11/21 11/11/21 11/12/21 12:38 18:13 00:14 WBC RBC Hgb Hct MCV MCH MCHC RDW Plt Count Seg Neuts % (Manual) Lymphocytes % (Manual) Seg Neutrophils # Man Lymphocytes # (Manual) Monocytes # (Manual) PT INR D-Dimer ABG pH ABG pO2 ABG HCO3 ABG O2 Saturation ABG Base Excess ABG Hemoglobin Oxyhemoglobin Sodium Potassium Chloride Carbon Dioxide BUN Creatinine Glucose POC Glucose 137 H 108 H 137 H Lactic Acid Calcium Phosphorus Magnesium AST ALT Alkaline Phosphatase Lactate Dehydrogenase Troponin T C-Reactive Protein NT-Pro-B Natriuret Pep Total Protein Albumin LDL Cholesterol Direct Vitamin B12 Crossmatch 11/12/21 11/12/21 11/12/21 05:40 06:24 11:12 WBC RBC Hgb Hct MCV MCH MCHC RDW Plt Count Seg Neuts % (Manual) Lymphocytes % (Manual) Seg Neutrophils # Man Lymphocytes # (Manual) Monocytes # (Manual) PT INR D-Dimer ABG pH 7.586 H ABG pO2 150.6 H ABG HCO3 27.2 H ABG O2 Saturation 99.1 H ABG Base Excess 5.2 H ABG Hemoglobin 7.5 L Oxyhemoglobin Sodium Potassium Chloride Carbon Dioxide BUN Creatinine Glucose POC Glucose 132 H 140 H Lactic Acid Calcium Phosphorus Magnesium AST ALT Alkaline Phosphatase Lactate Dehydrogenase Troponin T C-Reactive Protein NT-Pro-B Natriuret Pep Total Protein Albumin LDL Cholesterol Direct Vitamin B12 Crossmatch 11/12/21 11/12/21 11/12/21 14:50 14:50 17:13 WBC 19.8 H RBC 3.27 L Hgb 7.1 L Hct 24.5 L MCV 75 L MCH 22 L MCHC 29 L RDW 22.3 H Plt Count Seg Neuts % (Manual) Lymphocytes % (Manual) Seg Neutrophils # Man Lymphocytes # (Manual) Monocytes # (Manual) PT INR D-Dimer ABG pH ABG pO2 ABG HCO3 ABG O2 Saturation ABG Base Excess ABG Hemoglobin Oxyhemoglobin Sodium 150 H Potassium 3.3 L Chloride 112.0 H Carbon Dioxide BUN 40 H Creatinine Glucose 151 H POC Glucose 121 H Lactic Acid Calcium 7.4 L Phosphorus 1.70 L Magnesium 1.40 L AST ALT Alkaline Phosphatase Lactate Dehydrogenase Troponin T C-Reactive Protein NT-Pro-B Natriuret Pep Total Protein Albumin LDL Cholesterol Direct Vitamin B12 Crossmatch 11/12/21 11/13/21 11/13/21 23:19 05:34 06:30 WBC RBC Hgb Hct MCV MCH MCHC RDW Plt Count Seg Neuts % (Manual) Lymphocytes % (Manual) Seg Neutrophils # Man Lymphocytes # (Manual) Monocytes # (Manual) PT INR D-Dimer ABG pH ABG pO2 ABG HCO3 ABG O2 Saturation ABG Base Excess ABG Hemoglobin Oxyhemoglobin Sodium 149 H Potassium Chloride 60.0 L Carbon Dioxide BUN 40 H Creatinine Glucose 146 H POC Glucose 113 H 132 H Lactic Acid Calcium 7.3 L Phosphorus Magnesium 2.40 H AST ALT 72 H Alkaline Phosphatase Lactate Dehydrogenase Troponin T C-Reactive Protein NT-Pro-B Natriuret Pep Total Protein 5.2 L Albumin 2.2 L LDL Cholesterol Direct Vitamin B12 Crossmatch 11/13/21 11/13/21 11/13/21 06:30 08:30 11:19 WBC 21.2 H RBC 3.12 L Hgb 6.8 L Hct 23.2 L MCV 74 L MCH 22 L MCHC 29 L RDW 22.2 H Plt Count 135 L Seg Neuts % (Manual) Lymphocytes % (Manual) Seg Neutrophils # Man Lymphocytes # (Manual) Monocytes # (Manual) PT INR D-Dimer ABG pH ABG pO2 ABG HCO3 ABG O2 Saturation ABG Base Excess ABG Hemoglobin Oxyhemoglobin Sodium Potassium Chloride Carbon Dioxide BUN Creatinine Glucose POC Glucose 136 H Lactic Acid Calcium Phosphorus Magnesium AST ALT Alkaline Phosphatase Lactate Dehydrogenase Troponin T C-Reactive Protein NT-Pro-B Natriuret Pep Total Protein Albumin LDL Cholesterol Direct Vitamin B12 Crossmatch See Detail 11/13/21 11/14/21 11/14/21 18:21 00:01 04:46 WBC 20.0 H RBC 3.41 L Hgb 7.9 L Hct 26.8 L MCV MCH 23 L MCHC 29 L RDW 24.0 H Plt Count Seg Neuts % (Manual) Lymphocytes % (Manual) Seg Neutrophils # Man Lymphocytes # (Manual) Monocytes # (Manual) PT INR D-Dimer ABG pH ABG pO2 ABG HCO3 ABG O2 Saturation ABG Base Excess ABG Hemoglobin Oxyhemoglobin Sodium Potassium Chloride Carbon Dioxide BUN Creatinine Glucose POC Glucose 149 H 141 H Lactic Acid Calcium Phosphorus Magnesium AST ALT Alkaline Phosphatase Lactate Dehydrogenase Troponin T C-Reactive Protein NT-Pro-B Natriuret Pep Total Protein Albumin LDL Cholesterol Direct Vitamin B12 Crossmatch 11/14/21 11/14/21 11/14/21 04:46 05:10 11:10 WBC RBC Hgb Hct MCV MCH MCHC RDW Plt Count Seg Neuts % (Manual) Lymphocytes % (Manual) Seg Neutrophils # Man Lymphocytes # (Manual) Monocytes # (Manual) PT INR D-Dimer ABG pH ABG pO2 ABG HCO3 ABG O2 Saturation ABG Base Excess ABG Hemoglobin Oxyhemoglobin Sodium 148 H Potassium Chloride 113.1 H Carbon Dioxide BUN 43 H Creatinine Glucose 140 H POC Glucose 132 H 133 H Lactic Acid Calcium 7.5 L Phosphorus Magnesium AST ALT Alkaline Phosphatase Lactate Dehydrogenase Troponin T C-Reactive Protein NT-Pro-B Natriuret Pep Total Protein Albumin LDL Cholesterol Direct Vitamin B12 Crossmatch 11/14/21 11/14/21 11/14/21 16:14 17:48 23:23 WBC RBC Hgb Hct MCV MCH MCHC RDW Plt Count Seg Neuts % (Manual) Lymphocytes % (Manual) Seg Neutrophils # Man Lymphocytes # (Manual) Monocytes # (Manual) PT INR D-Dimer ABG pH ABG pO2 ABG HCO3 28.0 H ABG O2 Saturation ABG Base Excess 3.1 H ABG Hemoglobin 5.8 L Oxyhemoglobin 94.8 L Sodium Potassium Chloride Carbon Dioxide BUN Creatinine Glucose POC Glucose 130 H 136 H Lactic Acid Calcium Phosphorus Magnesium AST ALT Alkaline Phosphatase Lactate Dehydrogenase Troponin T C-Reactive Protein NT-Pro-B Natriuret Pep Total Protein Albumin LDL Cholesterol Direct Vitamin B12 Crossmatch 11/15/21 11/15/21 11/15/21 05:20 05:50 05:50 WBC 19.9 H RBC 3.50 L Hgb 8.2 L Hct 27.9 L MCV MCH 23 L MCHC 29 L RDW 24.9 H Plt Count Seg Neuts % (Manual) Lymphocytes % (Manual) Seg Neutrophils # Man Lymphocytes # (Manual) Monocytes # (Manual) PT INR D-Dimer ABG pH ABG pO2 ABG HCO3 ABG O2 Saturation ABG Base Excess ABG Hemoglobin Oxyhemoglobin Sodium 149 H Potassium Chloride 112.0 H Carbon Dioxide BUN 48 H Creatinine Glucose 152 H POC Glucose 137 H Lactic Acid Calcium 7.9 L Phosphorus Magnesium AST ALT Alkaline Phosphatase Lactate Dehydrogenase Troponin T C-Reactive Protein NT-Pro-B Natriuret Pep Total Protein Albumin LDL Cholesterol Direct Vitamin B12 Crossmatch 11/15/21 11/15/21 11/15/21 12:12 17:07 23:24 WBC RBC Hgb Hct MCV MCH MCHC RDW Plt Count Seg Neuts % (Manual) Lymphocytes % (Manual) Seg Neutrophils # Man Lymphocytes # (Manual) Monocytes # (Manual) PT INR D-Dimer ABG pH ABG pO2 ABG HCO3 ABG O2 Saturation ABG Base Excess ABG Hemoglobin Oxyhemoglobin Sodium Potassium Chloride Carbon Dioxide BUN Creatinine Glucose POC Glucose 114 H 135 H 123 H Lactic Acid Calcium Phosphorus Magnesium AST ALT Alkaline Phosphatase Lactate Dehydrogenase Troponin T C-Reactive Protein NT-Pro-B Natriuret Pep Total Protein Albumin LDL Cholesterol Direct Vitamin B12 Crossmatch 11/16/21 11/16/21 11/16/21 05:21 10:00 10:00 WBC 21.7 H RBC 2.57 L Hgb 6.0 L Hct 20.2 L D MCV MCH 24 L MCHC RDW 26.3 H Plt Count Seg Neuts % (Manual) Lymphocytes % (Manual) Seg Neutrophils # Man Lymphocytes # (Manual) Monocytes # (Manual) PT INR D-Dimer ABG pH ABG pO2 ABG HCO3 ABG O2 Saturation ABG Base Excess ABG Hemoglobin Oxyhemoglobin Sodium 153 H Potassium Chloride 114.9 H Carbon Dioxide BUN 74 H Creatinine Glucose 155 H POC Glucose 127 H Lactic Acid Calcium 8.1 L Phosphorus Magnesium AST ALT Alkaline Phosphatase Lactate Dehydrogenase Troponin T C-Reactive Protein NT-Pro-B Natriuret Pep Total Protein Albumin LDL Cholesterol Direct Vitamin B12 Crossmatch 11/16/21 11/16/21 11/16/21 11:34 14:00 15:25 WBC 17.2 H RBC 2.08 L Hgb 4.7 L* Hct 16.2 L* MCV 78 L MCH 23 L MCHC 29 L RDW 26.0 H Plt Count Seg Neuts % (Manual) 87.0 H Lymphocytes % (Manual) 8.0 L Seg Neutrophils # Man 15.0 H Lymphocytes # (Manual) Monocytes # (Manual) 0.9 H PT INR D-Dimer ABG pH ABG pO2 ABG HCO3 ABG O2 Saturation ABG Base Excess ABG Hemoglobin Oxyhemoglobin Sodium Potassium Chloride Carbon Dioxide BUN Creatinine Glucose POC Glucose 131 H Lactic Acid Calcium Phosphorus Magnesium AST ALT Alkaline Phosphatase Lactate Dehydrogenase Troponin T C-Reactive Protein NT-Pro-B Natriuret Pep Total Protein Albumin LDL Cholesterol Direct Vitamin B12 Crossmatch See Detail 11/16/21 11/16/21 11/16/21 15:25 17:21 22:43 WBC RBC Hgb 8.6 L D Hct 27.7 L D MCV MCH MCHC RDW Plt Count Seg Neuts % (Manual) Lymphocytes % (Manual) Seg Neutrophils # Man Lymphocytes # (Manual) Monocytes # (Manual) PT INR D-Dimer ABG pH ABG pO2 ABG HCO3 ABG O2 Saturation ABG Base Excess ABG Hemoglobin Oxyhemoglobin Sodium 148 H Potassium Chloride 113.2 H Carbon Dioxide BUN 84 H Creatinine Glucose 164 H POC Glucose 124 H Lactic Acid Calcium 7.6 L Phosphorus Magnesium AST ALT Alkaline Phosphatase Lactate Dehydrogenase Troponin T C-Reactive Protein NT-Pro-B Natriuret Pep Total Protein Albumin LDL Cholesterol Direct Vitamin B12 Crossmatch 11/16/21 11/17/21 11/17/21 23:07 05:33 05:56 WBC 25.1 H RBC 3.47 L Hgb 8.7 L Hct 28.5 L MCV MCH 25 L MCHC RDW 22.3 H Plt Count Seg Neuts % (Manual) Lymphocytes % (Manual) Seg Neutrophils # Man Lymphocytes # (Manual) Monocytes # (Manual) PT INR D-Dimer ABG pH ABG pO2 ABG HCO3 ABG O2 Saturation ABG Base Excess ABG Hemoglobin Oxyhemoglobin Sodium Potassium Chloride Carbon Dioxide BUN Creatinine Glucose POC Glucose 128 H 133 H Lactic Acid Calcium Phosphorus Magnesium AST ALT Alkaline Phosphatase Lactate Dehydrogenase Troponin T C-Reactive Protein NT-Pro-B Natriuret Pep Total Protein Albumin LDL Cholesterol Direct Vitamin B12 Crossmatch 11/17/21 11/17/21 11/17/21 05:56 11:00 11:55 WBC RBC Hgb 8.3 L Hct 26.9 L MCV MCH MCHC RDW Plt Count Seg Neuts % (Manual) Lymphocytes % (Manual) Seg Neutrophils # Man Lymphocytes # (Manual) Monocytes # (Manual) PT INR D-Dimer ABG pH ABG pO2 ABG HCO3 ABG O2 Saturation ABG Base Excess ABG Hemoglobin Oxyhemoglobin Sodium 151 H Potassium Chloride 113.6 H Carbon Dioxide BUN 85 H Creatinine Glucose 132 H POC Glucose 121 H Lactic Acid Calcium 7.8 L Phosphorus Magnesium AST ALT Alkaline Phosphatase Lactate Dehydrogenase Troponin T C-Reactive Protein NT-Pro-B Natriuret Pep Total Protein 5.1 L Albumin 2.2 L LDL Cholesterol Direct Vitamin B12 Crossmatch 11/17/21 11/17/21 11/18/21 18:04 18:55 00:26 WBC RBC Hgb 7.5 L 7.1 L Hct 24.8 L 23.6 L MCV MCH MCHC RDW Plt Count Seg Neuts % (Manual) Lymphocytes % (Manual) Seg Neutrophils # Man Lymphocytes # (Manual) Monocytes # (Manual) PT INR D-Dimer ABG pH ABG pO2 ABG HCO3 ABG O2 Saturation ABG Base Excess ABG Hemoglobin Oxyhemoglobin Sodium Potassium Chloride Carbon Dioxide BUN Creatinine Glucose POC Glucose 144 H Lactic Acid Calcium Phosphorus Magnesium AST ALT Alkaline Phosphatase Lactate Dehydrogenase Troponin T C-Reactive Protein NT-Pro-B Natriuret Pep Total Protein Albumin LDL Cholesterol Direct Vitamin B12 Crossmatch 11/18/21 11/18/21 11/18/21 00:43 05:10 05:10 WBC 12.5 H RBC 2.39 L Hgb 6.1 L Hct 20.2 L MCV MCH 25 L MCHC RDW 23.2 H Plt Count Seg Neuts % (Manual) Lymphocytes % (Manual) Seg Neutrophils # Man Lymphocytes # (Manual) Monocytes # (Manual) PT INR D-Dimer ABG pH ABG pO2 ABG HCO3 ABG O2 Saturation ABG Base Excess ABG Hemoglobin Oxyhemoglobin Sodium 131 L D Potassium 2.9 L* D Chloride 97.8 L Carbon Dioxide BUN 58 H Creatinine Glucose 665 H* POC Glucose 139 H Lactic Acid Calcium 7.0 L Phosphorus 2.20 L D Magnesium 1.50 L AST ALT Alkaline Phosphatase Lactate Dehydrogenase Troponin T C-Reactive Protein NT-Pro-B Natriuret Pep Total Protein Albumin LDL Cholesterol Direct Vitamin B12 Crossmatch 11/18/21 11/18/21 11/18/21 05:23 07:10 10:45 WBC RBC Hgb Hct MCV MCH MCHC RDW Plt Count Seg Neuts % (Manual) Lymphocytes % (Manual) Seg Neutrophils # Man Lymphocytes # (Manual) Monocytes # (Manual) PT INR D-Dimer ABG pH ABG pO2 ABG HCO3 ABG O2 Saturation ABG Base Excess ABG Hemoglobin Oxyhemoglobin Sodium 148 H D Potassium 3.1 L Chloride 111.9 H Carbon Dioxide BUN 63 H Creatinine Glucose 141 H POC Glucose 124 H Lactic Acid Calcium 8.1 L D Phosphorus Magnesium AST ALT Alkaline Phosphatase Lactate Dehydrogenase Troponin T C-Reactive Protein NT-Pro-B Natriuret Pep Total Protein Albumin LDL Cholesterol Direct Vitamin B12 Crossmatch See Detail 11/18/21 11/19/21 11/19/21 11:57 00:19 04:55 WBC RBC 3.35 L Hgb 9.0 L 8.9 L Hct 28.3 L D 28.1 L MCV MCH 27 L MCHC RDW 20.3 H Plt Count Seg Neuts % (Manual) Lymphocytes % (Manual) Seg Neutrophils # Man Lymphocytes # (Manual) Monocytes # (Manual) PT INR D-Dimer ABG pH ABG pO2 ABG HCO3 ABG O2 Saturation ABG Base Excess ABG Hemoglobin Oxyhemoglobin Sodium Potassium Chloride Carbon Dioxide BUN Creatinine Glucose POC Glucose 119 H Lactic Acid Calcium Phosphorus Magnesium AST ALT Alkaline Phosphatase Lactate Dehydrogenase Troponin T C-Reactive Protein NT-Pro-B Natriuret Pep Total Protein Albumin LDL Cholesterol Direct Vitamin B12 Crossmatch 11/19/21 11/19/21 11/20/21 04:55 05:42 00:55 WBC RBC Hgb 9.0 L Hct 28.6 L MCV MCH MCHC RDW Plt Count Seg Neuts % (Manual) Lymphocytes % (Manual) Seg Neutrophils # Man Lymphocytes # (Manual) Monocytes # (Manual) PT INR D-Dimer ABG pH ABG pO2 ABG HCO3 ABG O2 Saturation ABG Base Excess ABG Hemoglobin Oxyhemoglobin Sodium Potassium 3.5 L Chloride 108.6 H Carbon Dioxide BUN 47 H Creatinine Glucose 207 H POC Glucose 63 L Lactic Acid Calcium 7.1 L Phosphorus Magnesium AST ALT Alkaline Phosphatase Lactate Dehydrogenase Troponin T C-Reactive Protein NT-Pro-B Natriuret Pep Total Protein Albumin LDL Cholesterol Direct Vitamin B12 Crossmatch 11/20/21 11/20/21 11/20/21 05:40 05:40 Unknown WBC RBC 3.40 L Hgb 9.1 L Hct 28.8 L MCV MCH 27 L MCHC RDW 20.7 H Plt Count Seg Neuts % (Manual) Lymphocytes % (Manual) Seg Neutrophils # Man Lymphocytes # (Manual) Monocytes # (Manual) PT INR D-Dimer ABG pH ABG pO2 ABG HCO3 ABG O2 Saturation ABG Base Excess -2.7 L ABG Hemoglobin 9.5 L Oxyhemoglobin 94.3 L Sodium Potassium 3.5 L Chloride 108.9 H Carbon Dioxide BUN 37 H Creatinine Glucose 117 H POC Glucose Lactic Acid Calcium 7.5 L Phosphorus Magnesium AST ALT Alkaline Phosphatase Lactate Dehydrogenase Troponin T C-Reactive Protein NT-Pro-B Natriuret Pep Total Protein Albumin LDL Cholesterol Direct Vitamin B12 Crossmatch 11/21/21 11/21/21 11/21/21 04:30 04:30 16:00 WBC RBC 3.25 L Hgb 8.6 L Hct 28.1 L MCV MCH 26 L MCHC RDW 20.7 H Plt Count Seg Neuts % (Manual) Lymphocytes % (Manual) Seg Neutrophils # Man Lymphocytes # (Manual) Monocytes # (Manual) PT INR D-Dimer ABG pH ABG pO2 114.2 H ABG HCO3 ABG O2 Saturation ABG Base Excess ABG Hemoglobin 9.1 L Oxyhemoglobin Sodium 134 L Potassium Chloride Carbon Dioxide 20 L BUN 34 H Creatinine Glucose POC Glucose Lactic Acid Calcium 7.1 L Phosphorus Magnesium AST ALT Alkaline Phosphatase Lactate Dehydrogenase Troponin T C-Reactive Protein NT-Pro-B Natriuret Pep Total Protein Albumin LDL Cholesterol Direct Vitamin B12 Crossmatch 11/22/21 11/22/21 11/22/21 07:07 07:07 23:54 WBC RBC 3.30 L Hgb 9.0 L Hct 28.5 L MCV MCH 27 L MCHC RDW 21.0 H Plt Count Seg Neuts % (Manual) Lymphocytes % (Manual) Seg Neutrophils # Man Lymphocytes # (Manual) Monocytes # (Manual) PT INR D-Dimer ABG pH ABG pO2 ABG HCO3 ABG O2 Saturation ABG Base Excess ABG Hemoglobin Oxyhemoglobin Sodium Potassium Chloride Carbon Dioxide BUN 32 H Creatinine Glucose 106 H POC Glucose 110 H Lactic Acid Calcium 7.5 L Phosphorus Magnesium AST ALT Alkaline Phosphatase Lactate Dehydrogenase Troponin T C-Reactive Protein NT-Pro-B Natriuret Pep Total Protein Albumin LDL Cholesterol Direct Vitamin B12 Crossmatch 11/23/21 11/23/21 11/23/21 04:38 04:38 06:01 WBC RBC 3.23 L Hgb 8.8 L Hct 28.0 L MCV MCH 27 L MCHC RDW 21.3 H Plt Count Seg Neuts % (Manual) Lymphocytes % (Manual) Seg Neutrophils # Man Lymphocytes # (Manual) Monocytes # (Manual) PT INR D-Dimer ABG pH ABG pO2 ABG HCO3 ABG O2 Saturation ABG Base Excess ABG Hemoglobin Oxyhemoglobin Sodium 136 L Potassium Chloride Carbon Dioxide 20 L BUN 32 H Creatinine Glucose 109 H POC Glucose 115 H Lactic Acid Calcium 7.7 L Phosphorus Magnesium AST ALT Alkaline Phosphatase Lactate Dehydrogenase Troponin T C-Reactive Protein NT-Pro-B Natriuret Pep Total Protein Albumin LDL Cholesterol Direct Vitamin B12 Crossmatch 11/23/21 11/24/21 11/24/21 11:40 00:03 04:13 WBC RBC 3.18 L Hgb 8.5 L Hct 27.5 L MCV MCH 27 L MCHC RDW 21.6 H Plt Count Seg Neuts % (Manual) Lymphocytes % (Manual) Seg Neutrophils # Man Lymphocytes # (Manual) Monocytes # (Manual) PT INR D-Dimer ABG pH ABG pO2 ABG HCO3 ABG O2 Saturation ABG Base Excess ABG Hemoglobin Oxyhemoglobin Sodium Potassium Chloride Carbon Dioxide BUN Creatinine Glucose POC Glucose 117 H 111 H Lactic Acid Calcium Phosphorus Magnesium AST ALT Alkaline Phosphatase Lactate Dehydrogenase Troponin T C-Reactive Protein NT-Pro-B Natriuret Pep Total Protein Albumin LDL Cholesterol Direct Vitamin B12 Crossmatch 11/24/21 11/24/21 11/24/21 04:13 05:30 11:10 WBC RBC Hgb Hct MCV MCH MCHC RDW Plt Count Seg Neuts % (Manual) Lymphocytes % (Manual) Seg Neutrophils # Man Lymphocytes # (Manual) Monocytes # (Manual) PT INR D-Dimer ABG pH ABG pO2 ABG HCO3 ABG O2 Saturation ABG Base Excess ABG Hemoglobin Oxyhemoglobin Sodium Potassium Chloride Carbon Dioxide BUN 31 H Creatinine Glucose 101 H POC Glucose 115 H 107 H Lactic Acid Calcium 7.7 L Phosphorus Magnesium AST ALT Alkaline Phosphatase Lactate Dehydrogenase Troponin T C-Reactive Protein NT-Pro-B Natriuret Pep Total Protein Albumin LDL Cholesterol Direct Vitamin B12 Crossmatch 11/24/21 11/24/21 11/25/21 16:34 17:57 05:12 WBC RBC 3.11 L Hgb 8.2 L Hct 26.6 L MCV MCH 26 L MCHC RDW 21.3 H Plt Count Seg Neuts % (Manual) Lymphocytes % (Manual) Seg Neutrophils # Man Lymphocytes # (Manual) Monocytes # (Manual) PT INR D-Dimer ABG pH ABG pO2 ABG HCO3 ABG O2 Saturation ABG Base Excess ABG Hemoglobin Oxyhemoglobin Sodium Potassium Chloride Carbon Dioxide BUN Creatinine Glucose POC Glucose 115 H 110 H Lactic Acid Calcium Phosphorus Magnesium AST ALT Alkaline Phosphatase Lactate Dehydrogenase Troponin T C-Reactive Protein NT-Pro-B Natriuret Pep Total Protein Albumin LDL Cholesterol Direct Vitamin B12 Crossmatch 11/25/21 11/25/21 11/26/21 05:12 11:20 05:00 WBC RBC 3.30 L Hgb 8.8 L Hct 28.2 L MCV MCH 27 L MCHC RDW 20.7 H Plt Count Seg Neuts % (Manual) Lymphocytes % (Manual) Seg Neutrophils # Man Lymphocytes # (Manual) Monocytes # (Manual) PT INR D-Dimer ABG pH ABG pO2 ABG HCO3 ABG O2 Saturation ABG Base Excess ABG Hemoglobin Oxyhemoglobin Sodium Potassium Chloride Carbon Dioxide BUN 32 H Creatinine Glucose 118 H POC Glucose 118 H Lactic Acid Calcium 8.2 L Phosphorus Magnesium AST ALT Alkaline Phosphatase Lactate Dehydrogenase Troponin T C-Reactive Protein NT-Pro-B Natriuret Pep Total Protein Albumin LDL Cholesterol Direct Vitamin B12 Crossmatch 11/26/21 11/26/21 11/26/21 05:00 05:00 05:44 WBC RBC Hgb Hct MCV MCH MCHC RDW Plt Count Seg Neuts % (Manual) Lymphocytes % (Manual) Seg Neutrophils # Man Lymphocytes # (Manual) Monocytes # (Manual) PT 16.9 H INR 1.24 H D-Dimer ABG pH ABG pO2 ABG HCO3 ABG O2 Saturation ABG Base Excess ABG Hemoglobin Oxyhemoglobin Sodium Potassium Chloride Carbon Dioxide BUN 31 H Creatinine Glucose 104 H POC Glucose 110 H Lactic Acid Calcium 7.9 L Phosphorus Magnesium AST ALT Alkaline Phosphatase Lactate Dehydrogenase Troponin T C-Reactive Protein NT-Pro-B Natriuret Pep Total Protein Albumin LDL Cholesterol Direct Vitamin B12 Crossmatch 11/26/21 11/27/21 11/27/21 23:55 07:40 07:40 WBC RBC 3.18 L Hgb 8.5 L Hct 27.0 L MCV MCH 27 L MCHC RDW 21.2 H Plt Count Seg Neuts % (Manual) Lymphocytes % (Manual) Seg Neutrophils # Man Lymphocytes # (Manual) Monocytes # (Manual) PT INR D-Dimer ABG pH ABG pO2 ABG HCO3 ABG O2 Saturation ABG Base Excess ABG Hemoglobin Oxyhemoglobin Sodium Potassium Chloride Carbon Dioxide BUN 27 H Creatinine Glucose 112 H POC Glucose 63 L Lactic Acid Calcium 7.6 L Phosphorus Magnesium AST ALT Alkaline Phosphatase Lactate Dehydrogenase Troponin T C-Reactive Protein NT-Pro-B Natriuret Pep Total Protein Albumin LDL Cholesterol Direct Vitamin B12 Crossmatch 11/27/21 11/27/21 11/27/21 12:04 13:40 13:40 WBC RBC 3.31 L Hgb 8.7 L Hct 28.0 L MCV MCH 26 L MCHC RDW 20.7 H Plt Count Seg Neuts % (Manual) Lymphocytes % (Manual) Seg Neutrophils # Man Lymphocytes # (Manual) Monocytes # (Manual) PT INR D-Dimer ABG pH ABG pO2 ABG HCO3 ABG O2 Saturation ABG Base Excess ABG Hemoglobin Oxyhemoglobin Sodium 136 L Potassium Chloride Carbon Dioxide BUN 25 H Creatinine Glucose 127 H POC Glucose 109 H Lactic Acid Calcium 7.6 L Phosphorus Magnesium 1.40 L AST ALT Alkaline Phosphatase Lactate Dehydrogenase Troponin T C-Reactive Protein NT-Pro-B Natriuret Pep Total Protein Albumin LDL Cholesterol Direct Vitamin B12 Crossmatch 11/27/21 11/27/21 11/28/21 17:44 23:33 12:20 WBC RBC Hgb Hct MCV MCH MCHC RDW Plt Count Seg Neuts % (Manual) Lymphocytes % (Manual) Seg Neutrophils # Man Lymphocytes # (Manual) Monocytes # (Manual) PT INR D-Dimer ABG pH ABG pO2 ABG HCO3 ABG O2 Saturation ABG Base Excess ABG Hemoglobin Oxyhemoglobin Sodium Potassium Chloride Carbon Dioxide BUN Creatinine Glucose POC Glucose 107 H 108 H 114 H Lactic Acid Calcium Phosphorus Magnesium AST ALT Alkaline Phosphatase Lactate Dehydrogenase Troponin T C-Reactive Protein NT-Pro-B Natriuret Pep Total Protein Albumin LDL Cholesterol Direct Vitamin B12 Crossmatch 11/29/21 11/29/21 11/29/21 00:09 03:20 03:20 WBC RBC 3.05 L Hgb 8.2 L Hct 25.8 L MCV MCH 27 L MCHC RDW 20.9 H Plt Count Seg Neuts % (Manual) Lymphocytes % (Manual) Seg Neutrophils # Man Lymphocytes # (Manual) Monocytes # (Manual) PT INR D-Dimer ABG pH ABG pO2 ABG HCO3 ABG O2 Saturation ABG Base Excess ABG Hemoglobin Oxyhemoglobin Sodium 133 L Potassium Chloride Carbon Dioxide BUN 24 H Creatinine Glucose 137 H POC Glucose 134 H Lactic Acid Calcium 7.4 L Phosphorus Magnesium AST ALT Alkaline Phosphatase Lactate Dehydrogenase Troponin T C-Reactive Protein NT-Pro-B Natriuret Pep Total Protein Albumin LDL Cholesterol Direct Vitamin B12 Crossmatch 11/29/21 11/29/21 11/29/21 05:38 11:39 17:11 WBC RBC Hgb Hct MCV MCH MCHC RDW Plt Count Seg Neuts % (Manual) Lymphocytes % (Manual) Seg Neutrophils # Man Lymphocytes # (Manual) Monocytes # (Manual) PT INR D-Dimer ABG pH ABG pO2 ABG HCO3 ABG O2 Saturation ABG Base Excess ABG Hemoglobin Oxyhemoglobin Sodium Potassium Chloride Carbon Dioxide BUN Creatinine Glucose POC Glucose 117 H 143 H 124 H Lactic Acid Calcium Phosphorus Magnesium AST ALT Alkaline Phosphatase Lactate Dehydrogenase Troponin T C-Reactive Protein NT-Pro-B Natriuret Pep Total Protein Albumin LDL Cholesterol Direct Vitamin B12 Crossmatch 11/29/21 11/30/21 11/30/21 20:15 05:40 05:40 WBC 12.6 H RBC 3.41 L Hgb 9.1 L Hct 28.9 L MCV MCH 27 L MCHC RDW 20.4 H Plt Count Seg Neuts % (Manual) Lymphocytes % (Manual) Seg Neutrophils # Man Lymphocytes # (Manual) Monocytes # (Manual) PT INR D-Dimer ABG pH ABG pO2 ABG HCO3 ABG O2 Saturation ABG Base Excess ABG Hemoglobin Oxyhemoglobin Sodium Potassium Chloride Carbon Dioxide BUN 24 H Creatinine Glucose 131 H POC Glucose Lactic Acid Calcium 7.6 L Phosphorus Magnesium AST ALT Alkaline Phosphatase Lactate Dehydrogenase Troponin T 0.045 H C-Reactive Protein NT-Pro-B Natriuret Pep Total Protein Albumin LDL Cholesterol Direct 25 L Vitamin B12 Crossmatch 11/30/21 11/30/21 12/01/21 11:29 16:51 05:00 WBC RBC 2.97 L Hgb 8.0 L Hct 25.0 L MCV MCH 27 L MCHC RDW 20.8 H Plt Count Seg Neuts % (Manual) Lymphocytes % (Manual) Seg Neutrophils # Man Lymphocytes # (Manual) Monocytes # (Manual) PT INR D-Dimer ABG pH ABG pO2 ABG HCO3 ABG O2 Saturation ABG Base Excess ABG Hemoglobin Oxyhemoglobin Sodium Potassium Chloride Carbon Dioxide BUN Creatinine Glucose POC Glucose 123 H 114 H Lactic Acid Calcium Phosphorus Magnesium AST ALT Alkaline Phosphatase Lactate Dehydrogenase Troponin T C-Reactive Protein NT-Pro-B Natriuret Pep Total Protein Albumin LDL Cholesterol Direct Vitamin B12 Crossmatch 12/01/21 12/01/21 12/01/21 05:00 05:25 11:54 WBC RBC Hgb Hct MCV MCH MCHC RDW Plt Count Seg Neuts % (Manual) Lymphocytes % (Manual) Seg Neutrophils # Man Lymphocytes # (Manual) Monocytes # (Manual) PT INR D-Dimer ABG pH ABG pO2 ABG HCO3 ABG O2 Saturation ABG Base Excess ABG Hemoglobin Oxyhemoglobin Sodium 136 L Potassium Chloride Carbon Dioxide BUN 24 H Creatinine Glucose 117 H POC Glucose 108 H 107 H Lactic Acid Calcium 7.5 L Phosphorus Magnesium 1.60 L AST ALT Alkaline Phosphatase Lactate Dehydrogenase Troponin T C-Reactive Protein NT-Pro-B Natriuret Pep Total Protein Albumin LDL Cholesterol Direct Vitamin B12 Crossmatch 12/01/21 12/02/21 12/02/21 17:40 00:07 04:20 WBC RBC 2.92 L Hgb 7.7 L Hct 24.3 L MCV MCH 26 L MCHC RDW 20.5 H Plt Count Seg Neuts % (Manual) Lymphocytes % (Manual) Seg Neutrophils # Man Lymphocytes # (Manual) Monocytes # (Manual) PT INR D-Dimer ABG pH ABG pO2 ABG HCO3 ABG O2 Saturation ABG Base Excess ABG Hemoglobin Oxyhemoglobin Sodium Potassium Chloride Carbon Dioxide BUN Creatinine Glucose POC Glucose 123 H 110 H Lactic Acid Calcium Phosphorus Magnesium AST ALT Alkaline Phosphatase Lactate Dehydrogenase Troponin T C-Reactive Protein NT-Pro-B Natriuret Pep Total Protein Albumin LDL Cholesterol Direct Vitamin B12 Crossmatch 12/02/21 12/02/21 12/02/21 04:20 11:17 18:20 WBC RBC Hgb Hct MCV MCH MCHC RDW Plt Count Seg Neuts % (Manual) Lymphocytes % (Manual) Seg Neutrophils # Man Lymphocytes # (Manual) Monocytes # (Manual) PT INR D-Dimer ABG pH ABG pO2 ABG HCO3 ABG O2 Saturation ABG Base Excess ABG Hemoglobin Oxyhemoglobin Sodium 135 L Potassium Chloride Carbon Dioxide BUN 26 H Creatinine Glucose 121 H POC Glucose 117 H 113 H Lactic Acid Calcium 7.4 L Phosphorus Magnesium AST ALT Alkaline Phosphatase Lactate Dehydrogenase Troponin T C-Reactive Protein NT-Pro-B Natriuret Pep Total Protein Albumin LDL Cholesterol Direct Vitamin B12 Crossmatch 12/03/21 12/03/21 12/03/21 00:12 04:00 04:00 WBC RBC 2.99 L Hgb 7.8 L Hct 24.6 L MCV MCH 26 L MCHC RDW 20.2 H Plt Count Seg Neuts % (Manual) Lymphocytes % (Manual) Seg Neutrophils # Man Lymphocytes # (Manual) Monocytes # (Manual) PT INR D-Dimer ABG pH ABG pO2 ABG HCO3 ABG O2 Saturation ABG Base Excess ABG Hemoglobin Oxyhemoglobin Sodium 136 L Potassium Chloride Carbon Dioxide BUN 27 H Creatinine Glucose 133 H POC Glucose 121 H Lactic Acid Calcium 7.5 L Phosphorus Magnesium AST ALT Alkaline Phosphatase Lactate Dehydrogenase Troponin T C-Reactive Protein NT-Pro-B Natriuret Pep Total Protein Albumin LDL Cholesterol Direct Vitamin B12 Crossmatch 12/03/21 12/03/21 12/03/21 06:30 11:13 16:00 WBC RBC Hgb Hct MCV MCH MCHC RDW Plt Count Seg Neuts % (Manual) Lymphocytes % (Manual) Seg Neutrophils # Man Lymphocytes # (Manual) Monocytes # (Manual) PT INR D-Dimer ABG pH ABG pO2 ABG HCO3 ABG O2 Saturation ABG Base Excess ABG Hemoglobin Oxyhemoglobin Sodium Potassium Chloride Carbon Dioxide BUN Creatinine Glucose POC Glucose 129 H 125 H 125 H Lactic Acid Calcium Phosphorus Magnesium AST ALT Alkaline Phosphatase Lactate Dehydrogenase Troponin T C-Reactive Protein NT-Pro-B Natriuret Pep Total Protein Albumin LDL Cholesterol Direct Vitamin B12 Crossmatch 12/03/21 12/04/21 12/04/21 23:32 04:00 05:36 WBC RBC Hgb Hct MCV MCH MCHC RDW Plt Count Seg Neuts % (Manual) Lymphocytes % (Manual) Seg Neutrophils # Man Lymphocytes # (Manual) Monocytes # (Manual) PT INR D-Dimer ABG pH ABG pO2 ABG HCO3 ABG O2 Saturation ABG Base Excess ABG Hemoglobin Oxyhemoglobin Sodium Potassium 3.5 L Chloride Carbon Dioxide BUN 26 H Creatinine 0.5 L Glucose 151 H POC Glucose 133 H 142 H Lactic Acid Calcium 8.3 L Phosphorus Magnesium AST ALT Alkaline Phosphatase Lactate Dehydrogenase Troponin T C-Reactive Protein NT-Pro-B Natriuret Pep Total Protein Albumin LDL Cholesterol Direct Vitamin B12 Crossmatch 12/04/21 12/04/21 12/05/21 11:24 15:58 04:36 WBC RBC Hgb Hct MCV MCH MCHC RDW Plt Count Seg Neuts % (Manual) Lymphocytes % (Manual) Seg Neutrophils # Man Lymphocytes # (Manual) Monocytes # (Manual) PT INR D-Dimer ABG pH ABG pO2 ABG HCO3 ABG O2 Saturation ABG Base Excess ABG Hemoglobin Oxyhemoglobin Sodium Potassium Chloride Carbon Dioxide BUN 21 H Creatinine 0.5 L Glucose 119 H POC Glucose 130 H 111 H Lactic Acid Calcium 8.3 L Phosphorus Magnesium AST ALT Alkaline Phosphatase Lactate Dehydrogenase Troponin T C-Reactive Protein NT-Pro-B Natriuret Pep Total Protein Albumin LDL Cholesterol Direct Vitamin B12 Crossmatch 12/05/21 12/05/21 12/05/21 05:15 10:40 11:12 WBC RBC 2.98 L Hgb 8.1 L Hct 24.6 L MCV MCH 27 L MCHC RDW 20.8 H Plt Count Seg Neuts % (Manual) Lymphocytes % (Manual) Seg Neutrophils # Man Lymphocytes # (Manual) Monocytes # (Manual) PT INR D-Dimer ABG pH ABG pO2 ABG HCO3 ABG O2 Saturation ABG Base Excess ABG Hemoglobin Oxyhemoglobin Sodium Potassium Chloride Carbon Dioxide BUN Creatinine Glucose POC Glucose 107 H 110 H Lactic Acid Calcium Phosphorus Magnesium AST ALT Alkaline Phosphatase Lactate Dehydrogenase Troponin T C-Reactive Protein NT-Pro-B Natriuret Pep Total Protein Albumin LDL Cholesterol Direct Vitamin B12 Crossmatch 12/05/21 12/06/21 12/06/21 23:39 04:25 04:25 WBC RBC 2.95 L Hgb 7.9 L Hct 24.7 L MCV MCH 27 L MCHC RDW 20.9 H Plt Count Seg Neuts % (Manual) Lymphocytes % (Manual) Seg Neutrophils # Man Lymphocytes # (Manual) Monocytes # (Manual) PT INR D-Dimer ABG pH ABG pO2 ABG HCO3 ABG O2 Saturation ABG Base Excess ABG Hemoglobin Oxyhemoglobin Sodium Potassium Chloride Carbon Dioxide BUN 22 H Creatinine 0.5 L Glucose 136 H POC Glucose 118 H Lactic Acid Calcium 8.2 L Phosphorus Magnesium AST ALT Alkaline Phosphatase Lactate Dehydrogenase Troponin T C-Reactive Protein NT-Pro-B Natriuret Pep Total Protein Albumin LDL Cholesterol Direct Vitamin B12 Crossmatch 12/06/21 12/06/21 12/07/21 05:28 11:27 04:00 WBC RBC Hgb 7.2 L Hct 21.8 L MCV MCH MCHC RDW Plt Count Seg Neuts % (Manual) Lymphocytes % (Manual) Seg Neutrophils # Man Lymphocytes # (Manual) Monocytes # (Manual) PT INR D-Dimer ABG pH ABG pO2 ABG HCO3 ABG O2 Saturation ABG Base Excess ABG Hemoglobin Oxyhemoglobin Sodium Potassium Chloride Carbon Dioxide BUN Creatinine Glucose POC Glucose 142 H 126 H Lactic Acid Calcium Phosphorus Magnesium AST ALT Alkaline Phosphatase Lactate Dehydrogenase Troponin T C-Reactive Protein NT-Pro-B Natriuret Pep Total Protein Albumin LDL Cholesterol Direct Vitamin B12 Crossmatch 12/07/21 12/07/21 12/07/21 04:00 05:30 11:12 WBC RBC Hgb Hct MCV MCH MCHC RDW Plt Count Seg Neuts % (Manual) Lymphocytes % (Manual) Seg Neutrophils # Man Lymphocytes # (Manual) Monocytes # (Manual) PT INR D-Dimer ABG pH ABG pO2 ABG HCO3 ABG O2 Saturation ABG Base Excess ABG Hemoglobin Oxyhemoglobin Sodium Potassium Chloride Carbon Dioxide BUN 22 H Creatinine Glucose 119 H POC Glucose 121 H 124 H Lactic Acid Calcium 8.0 L Phosphorus Magnesium AST ALT Alkaline Phosphatase Lactate Dehydrogenase Troponin T C-Reactive Protein NT-Pro-B Natriuret Pep Total Protein Albumin LDL Cholesterol Direct Vitamin B12 Crossmatch 12/08/21 12/08/21 12/08/21 04:00 04:00 05:39 WBC RBC 2.81 L Hgb 7.7 L Hct 23.5 L MCV MCH MCHC RDW 21.2 H Plt Count Seg Neuts % (Manual) Lymphocytes % (Manual) Seg Neutrophils # Man Lymphocytes # (Manual) Monocytes # (Manual) PT INR D-Dimer ABG pH ABG pO2 ABG HCO3 ABG O2 Saturation ABG Base Excess ABG Hemoglobin Oxyhemoglobin Sodium 135 L Potassium Chloride Carbon Dioxide BUN 23 H Creatinine Glucose 109 H POC Glucose 112 H Lactic Acid Calcium Phosphorus Magnesium AST ALT Alkaline Phosphatase Lactate Dehydrogenase Troponin T C-Reactive Protein NT-Pro-B Natriuret Pep Total Protein Albumin LDL Cholesterol Direct Vitamin B12 Crossmatch 12/08/21 12/09/21 12/09/21 11:03 04:20 04:20 WBC RBC 2.67 L Hgb 7.6 L Hct 22.1 L MCV MCH MCHC RDW 20.8 H Plt Count Seg Neuts % (Manual) Lymphocytes % (Manual) Seg Neutrophils # Man Lymphocytes # (Manual) Monocytes # (Manual) PT INR D-Dimer ABG pH ABG pO2 ABG HCO3 ABG O2 Saturation ABG Base Excess ABG Hemoglobin Oxyhemoglobin Sodium 135 L Potassium Chloride 97.8 L Carbon Dioxide BUN 26 H Creatinine Glucose 119 H POC Glucose 108 H Lactic Acid Calcium 7.7 L Phosphorus Magnesium AST ALT Alkaline Phosphatase Lactate Dehydrogenase Troponin T C-Reactive Protein NT-Pro-B Natriuret Pep Total Protein Albumin LDL Cholesterol Direct Vitamin B12 Crossmatch 12/09/21 12/10/21 12/10/21 11:26 04:33 11:12 WBC RBC Hgb Hct MCV MCH MCHC RDW Plt Count Seg Neuts % (Manual) Lymphocytes % (Manual) Seg Neutrophils # Man Lymphocytes # (Manual) Monocytes # (Manual) PT INR D-Dimer ABG pH ABG pO2 ABG HCO3 ABG O2 Saturation ABG Base Excess ABG Hemoglobin Oxyhemoglobin Sodium 136 L Potassium Chloride Carbon Dioxide BUN 27 H Creatinine Glucose 117 H POC Glucose 110 H 117 H Lactic Acid Calcium 8.2 L Phosphorus Magnesium AST ALT Alkaline Phosphatase Lactate Dehydrogenase Troponin T C-Reactive Protein NT-Pro-B Natriuret Pep Total Protein Albumin LDL Cholesterol Direct Vitamin B12 Crossmatch 12/10/21 12/10/21 12/11/21 16:02 23:31 04:35 WBC RBC 2.57 L Hgb 7.0 L Hct 21.4 L MCV MCH 27 L MCHC RDW 21.1 H Plt Count Seg Neuts % (Manual) Lymphocytes % (Manual) Seg Neutrophils # Man Lymphocytes # (Manual) Monocytes # (Manual) PT INR D-Dimer ABG pH ABG pO2 ABG HCO3 ABG O2 Saturation ABG Base Excess ABG Hemoglobin Oxyhemoglobin Sodium Potassium Chloride Carbon Dioxide BUN Creatinine Glucose POC Glucose 137 H 111 H Lactic Acid Calcium Phosphorus Magnesium AST ALT Alkaline Phosphatase Lactate Dehydrogenase Troponin T C-Reactive Protein NT-Pro-B Natriuret Pep Total Protein Albumin LDL Cholesterol Direct Vitamin B12 Crossmatch 12/11/21 12/11/21 12/11/21 04:35 12:46 16:07 WBC RBC Hgb Hct MCV MCH MCHC RDW Plt Count Seg Neuts % (Manual) Lymphocytes % (Manual) Seg Neutrophils # Man Lymphocytes # (Manual) Monocytes # (Manual) PT INR D-Dimer ABG pH ABG pO2 ABG HCO3 ABG O2 Saturation ABG Base Excess ABG Hemoglobin Oxyhemoglobin Sodium 136 L Potassium Chloride Carbon Dioxide BUN 27 H Creatinine Glucose 112 H POC Glucose 115 H 111 H Lactic Acid Calcium 7.6 L Phosphorus Magnesium AST ALT Alkaline Phosphatase Lactate Dehydrogenase Troponin T C-Reactive Protein NT-Pro-B Natriuret Pep Total Protein Albumin LDL Cholesterol Direct Vitamin B12 Crossmatch 12/11/21 12/12/21 12/12/21 23:42 04:30 04:30 WBC RBC 2.60 L Hgb 7.1 L Hct 21.5 L MCV MCH 27 L MCHC RDW 20.3 H Plt Count Seg Neuts % (Manual) Lymphocytes % (Manual) Seg Neutrophils # Man Lymphocytes # (Manual) Monocytes # (Manual) PT INR D-Dimer ABG pH ABG pO2 ABG HCO3 ABG O2 Saturation ABG Base Excess ABG Hemoglobin Oxyhemoglobin Sodium 135 L Potassium Chloride 97.9 L Carbon Dioxide BUN 26 H Creatinine 0.5 L Glucose 138 H POC Glucose 115 H Lactic Acid Calcium 8.2 L Phosphorus Magnesium AST ALT Alkaline Phosphatase Lactate Dehydrogenase Troponin T C-Reactive Protein NT-Pro-B Natriuret Pep Total Protein Albumin LDL Cholesterol Direct Vitamin B12 Crossmatch 12/12/21 12/12/21 12/12/21 04:30 05:10 11:51 WBC RBC Hgb Hct MCV MCH MCHC RDW Plt Count Seg Neuts % (Manual) Lymphocytes % (Manual) Seg Neutrophils # Man Lymphocytes # (Manual) Monocytes # (Manual) PT INR D-Dimer ABG pH ABG pO2 ABG HCO3 ABG O2 Saturation ABG Base Excess ABG Hemoglobin Oxyhemoglobin Sodium Potassium Chloride Carbon Dioxide BUN Creatinine Glucose POC Glucose 119 H 119 H Lactic Acid Calcium Phosphorus Magnesium AST ALT Alkaline Phosphatase Lactate Dehydrogenase Troponin T C-Reactive Protein NT-Pro-B Natriuret Pep Total Protein Albumin LDL Cholesterol Direct Vitamin B12 Crossmatch See Detail 12/13/21 12/13/21 12/13/21 00:52 04:00 04:00 WBC RBC 2.73 L Hgb 7.4 L Hct 22.8 L MCV MCH 27 L MCHC RDW 20.5 H Plt Count Seg Neuts % (Manual) Lymphocytes % (Manual) Seg Neutrophils # Man Lymphocytes # (Manual) Monocytes # (Manual) PT INR D-Dimer ABG pH ABG pO2 ABG HCO3 ABG O2 Saturation ABG Base Excess ABG Hemoglobin Oxyhemoglobin Sodium 134 L Potassium Chloride 96.7 L Carbon Dioxide BUN 23 H Creatinine 0.5 L Glucose 131 H POC Glucose 131 H Lactic Acid Calcium 8.1 L Phosphorus Magnesium AST ALT Alkaline Phosphatase Lactate Dehydrogenase Troponin T C-Reactive Protein NT-Pro-B Natriuret Pep Total Protein Albumin LDL Cholesterol Direct Vitamin B12 Crossmatch 12/13/21 12/13/21 12/13/21 05:23 12:11 17:18 WBC RBC Hgb Hct MCV MCH MCHC RDW Plt Count Seg Neuts % (Manual) Lymphocytes % (Manual) Seg Neutrophils # Man Lymphocytes # (Manual) Monocytes # (Manual) PT INR D-Dimer ABG pH ABG pO2 ABG HCO3 ABG O2 Saturation ABG Base Excess ABG Hemoglobin Oxyhemoglobin Sodium Potassium Chloride Carbon Dioxide BUN Creatinine Glucose POC Glucose 121 H 143 H 148 H Lactic Acid Calcium Phosphorus Magnesium AST ALT Alkaline Phosphatase Lactate Dehydrogenase Troponin T C-Reactive Protein NT-Pro-B Natriuret Pep Total Protein Albumin LDL Cholesterol Direct Vitamin B12 Crossmatch 12/14/21 12/14/21 12/14/21 00:54 04:20 04:20 WBC RBC 2.39 L Hgb 6.5 L Hct 20.3 L MCV MCH 27 L MCHC RDW 20.3 H Plt Count Seg Neuts % (Manual) Lymphocytes % (Manual) Seg Neutrophils # Man Lymphocytes # (Manual) Monocytes # (Manual) PT INR D-Dimer ABG pH ABG pO2 ABG HCO3 ABG O2 Saturation ABG Base Excess ABG Hemoglobin Oxyhemoglobin Sodium 130 L Potassium Chloride 93.5 L Carbon Dioxide BUN 25 H Creatinine Glucose 123 H POC Glucose 123 H Lactic Acid Calcium 8.0 L Phosphorus Magnesium AST ALT Alkaline Phosphatase Lactate Dehydrogenase Troponin T C-Reactive Protein NT-Pro-B Natriuret Pep Total Protein Albumin LDL Cholesterol Direct Vitamin B12 Crossmatch 12/14/21 12/14/21 12/14/21 05:06 08:17 10:30 WBC RBC Hgb Hct MCV MCH MCHC RDW Plt Count Seg Neuts % (Manual) Lymphocytes % (Manual) Seg Neutrophils # Man Lymphocytes # (Manual) Monocytes # (Manual) PT INR D-Dimer ABG pH ABG pO2 ABG HCO3 ABG O2 Saturation ABG Base Excess ABG Hemoglobin Oxyhemoglobin Sodium Potassium Chloride Carbon Dioxide BUN Creatinine Glucose POC Glucose 131 H 119 H Lactic Acid Calcium Phosphorus Magnesium AST ALT Alkaline Phosphatase Lactate Dehydrogenase Troponin T C-Reactive Protein NT-Pro-B Natriuret Pep Total Protein Albumin LDL Cholesterol Direct Vitamin B12 Crossmatch See Detail 12/14/21 12/14/21 12/14/21 12:15 16:37 23:27 WBC RBC Hgb Hct MCV MCH MCHC RDW Plt Count Seg Neuts % (Manual) Lymphocytes % (Manual) Seg Neutrophils # Man Lymphocytes # (Manual) Monocytes # (Manual) PT INR D-Dimer ABG pH ABG pO2 ABG HCO3 ABG O2 Saturation ABG Base Excess ABG Hemoglobin Oxyhemoglobin Sodium Potassium Chloride Carbon Dioxide BUN Creatinine Glucose POC Glucose 147 H 141 H 130 H Lactic Acid Calcium Phosphorus Magnesium AST ALT Alkaline Phosphatase Lactate Dehydrogenase Troponin T C-Reactive Protein NT-Pro-B Natriuret Pep Total Protein Albumin LDL Cholesterol Direct Vitamin B12 Crossmatch 12/15/21 12/15/21 12/15/21 05:00 07:00 07:00 WBC 12.3 H RBC 3.27 L Hgb 8.8 L Hct 27.5 L D MCV MCH 27 L MCHC RDW 19.0 H Plt Count Seg Neuts % (Manual) Lymphocytes % (Manual) Seg Neutrophils # Man Lymphocytes # (Manual) Monocytes # (Manual) PT INR D-Dimer ABG pH ABG pO2 ABG HCO3 ABG O2 Saturation ABG Base Excess ABG Hemoglobin Oxyhemoglobin Sodium 134 L Potassium Chloride 95.7 L Carbon Dioxide BUN 28 H Creatinine Glucose 129 H POC Glucose 129 H Lactic Acid Calcium 8.2 L Phosphorus Magnesium AST ALT Alkaline Phosphatase Lactate Dehydrogenase Troponin T C-Reactive Protein NT-Pro-B Natriuret Pep Total Protein Albumin LDL Cholesterol Direct Vitamin B12 Crossmatch 12/15/21 12/15/21 12/15/21 11:18 16:00 23:39 WBC RBC Hgb Hct MCV MCH MCHC RDW Plt Count Seg Neuts % (Manual) Lymphocytes % (Manual) Seg Neutrophils # Man Lymphocytes # (Manual) Monocytes # (Manual) PT INR D-Dimer ABG pH ABG pO2 ABG HCO3 ABG O2 Saturation ABG Base Excess ABG Hemoglobin Oxyhemoglobin Sodium Potassium Chloride Carbon Dioxide BUN Creatinine Glucose POC Glucose 139 H 137 H 146 H Lactic Acid Calcium Phosphorus Magnesium AST ALT Alkaline Phosphatase Lactate Dehydrogenase Troponin T C-Reactive Protein NT-Pro-B Natriuret Pep Total Protein Albumin LDL Cholesterol Direct Vitamin B12 Crossmatch 12/16/21 12/16/21 12/16/21 05:24 10:21 10:21 WBC 15.3 H RBC 3.24 L Hgb 8.9 L Hct 27.7 L MCV MCH MCHC RDW 19.0 H Plt Count Seg Neuts % (Manual) Lymphocytes % (Manual) Seg Neutrophils # Man Lymphocytes # (Manual) Monocytes # (Manual) PT INR D-Dimer ABG pH ABG pO2 ABG HCO3 ABG O2 Saturation ABG Base Excess ABG Hemoglobin Oxyhemoglobin Sodium 131 L Potassium 3.5 L Chloride 92.7 L Carbon Dioxide BUN 36 H Creatinine Glucose 160 H POC Glucose 121 H Lactic Acid Calcium Phosphorus Magnesium 1.60 L AST ALT Alkaline Phosphatase Lactate Dehydrogenase Troponin T C-Reactive Protein NT-Pro-B Natriuret Pep Total Protein Albumin LDL Cholesterol Direct Vitamin B12 Crossmatch 12/16/21 12/16/21 12/16/21 11:21 18:28 20:52 WBC RBC Hgb Hct MCV MCH MCHC RDW Plt Count Seg Neuts % (Manual) Lymphocytes % (Manual) Seg Neutrophils # Man Lymphocytes # (Manual) Monocytes # (Manual) PT INR D-Dimer ABG pH 7.479 H ABG pO2 79.3 L ABG HCO3 27.3 H ABG O2 Saturation ABG Base Excess 3.6 H ABG Hemoglobin 9.1 L Oxyhemoglobin 94.9 L Sodium Potassium Chloride Carbon Dioxide BUN Creatinine Glucose POC Glucose 153 H 132 H Lactic Acid Calcium Phosphorus Magnesium AST ALT Alkaline Phosphatase Lactate Dehydrogenase Troponin T C-Reactive Protein NT-Pro-B Natriuret Pep Total Protein Albumin LDL Cholesterol Direct Vitamin B12 Crossmatch 12/16/21 12/17/21 12/17/21 23:30 04:25 04:25 WBC 12.3 H RBC 2.16 L Hgb 6.0 L Hct 18.1 L* D MCV MCH MCHC RDW 19.4 H Plt Count Seg Neuts % (Manual) Lymphocytes % (Manual) Seg Neutrophils # Man Lymphocytes # (Manual) Monocytes # (Manual) PT INR D-Dimer ABG pH ABG pO2 ABG HCO3 ABG O2 Saturation ABG Base Excess ABG Hemoglobin Oxyhemoglobin Sodium 132 L Potassium 3.2 L Chloride 112.0 H Carbon Dioxide BUN 32 H Creatinine Glucose 122 H POC Glucose 137 H Lactic Acid Calcium 6.8 L D Phosphorus Magnesium AST ALT Alkaline Phosphatase Lactate Dehydrogenase Troponin T C-Reactive Protein NT-Pro-B Natriuret Pep Total Protein Albumin LDL Cholesterol Direct Vitamin B12 Crossmatch 12/17/21 12/17/21 12/17/21 05:30 11:49 14:45 WBC RBC Hgb 9.7 L D Hct MCV MCH MCHC RDW Plt Count Seg Neuts % (Manual) Lymphocytes % (Manual) Seg Neutrophils # Man Lymphocytes # (Manual) Monocytes # (Manual) PT INR D-Dimer ABG pH ABG pO2 ABG HCO3 ABG O2 Saturation ABG Base Excess ABG Hemoglobin Oxyhemoglobin Sodium Potassium Chloride Carbon Dioxide BUN Creatinine Glucose POC Glucose 137 H 143 H Lactic Acid Calcium Phosphorus Magnesium AST ALT Alkaline Phosphatase Lactate Dehydrogenase Troponin T C-Reactive Protein NT-Pro-B Natriuret Pep Total Protein Albumin LDL Cholesterol Direct Vitamin B12 Crossmatch 12/17/21 12/18/21 12/18/21 17:01 05:04 05:04 WBC 13.8 H RBC 3.44 L Hgb 9.9 L Hct 28.8 L MCV MCH MCHC RDW 18.1 H Plt Count Seg Neuts % (Manual) Lymphocytes % (Manual) Seg Neutrophils # Man Lymphocytes # (Manual) Monocytes # (Manual) PT INR D-Dimer ABG pH ABG pO2 ABG HCO3 ABG O2 Saturation ABG Base Excess ABG Hemoglobin Oxyhemoglobin Sodium 132 L Potassium Chloride 97.4 L Carbon Dioxide BUN 38 H Creatinine Glucose 134 H POC Glucose 132 H Lactic Acid Calcium Phosphorus Magnesium AST ALT Alkaline Phosphatase Lactate Dehydrogenase Troponin T C-Reactive Protein NT-Pro-B Natriuret Pep Total Protein Albumin LDL Cholesterol Direct Vitamin B12 Crossmatch 12/18/21 12/18/21 12/18/21 05:28 10:57 16:27 WBC RBC Hgb Hct MCV MCH MCHC RDW Plt Count Seg Neuts % (Manual) Lymphocytes % (Manual) Seg Neutrophils # Man Lymphocytes # (Manual) Monocytes # (Manual) PT INR D-Dimer ABG pH ABG pO2 ABG HCO3 ABG O2 Saturation ABG Base Excess ABG Hemoglobin Oxyhemoglobin Sodium Potassium Chloride Carbon Dioxide BUN Creatinine Glucose POC Glucose 118 H 132 H 130 H Lactic Acid Calcium Phosphorus Magnesium AST ALT Alkaline Phosphatase Lactate Dehydrogenase Troponin T C-Reactive Protein NT-Pro-B Natriuret Pep Total Protein Albumin LDL Cholesterol Direct Vitamin B12 Crossmatch 12/19/21 12/19/21 12/19/21 00:02 04:41 04:41 WBC 16.0 H RBC 3.45 L Hgb 9.7 L Hct 29.1 L MCV MCH MCHC RDW 17.8 H Plt Count Seg Neuts % (Manual) Lymphocytes % (Manual) Seg Neutrophils # Man Lymphocytes # (Manual) Monocytes # (Manual) PT INR D-Dimer ABG pH ABG pO2 ABG HCO3 ABG O2 Saturation ABG Base Excess ABG Hemoglobin Oxyhemoglobin Sodium 133 L Potassium Chloride 97.9 L Carbon Dioxide BUN 36 H Creatinine 0.5 L Glucose 126 H POC Glucose 127 H Lactic Acid Calcium 8.3 L Phosphorus Magnesium AST ALT Alkaline Phosphatase Lactate Dehydrogenase Troponin T C-Reactive Protein NT-Pro-B Natriuret Pep Total Protein Albumin LDL Cholesterol Direct Vitamin B12 Crossmatch 12/19/21 12/19/21 12/19/21 05:26 12:20 16:43 WBC RBC Hgb Hct MCV MCH MCHC RDW Plt Count Seg Neuts % (Manual) Lymphocytes % (Manual) Seg Neutrophils # Man Lymphocytes # (Manual) Monocytes # (Manual) PT INR D-Dimer ABG pH ABG pO2 ABG HCO3 ABG O2 Saturation ABG Base Excess ABG Hemoglobin Oxyhemoglobin Sodium Potassium Chloride Carbon Dioxide BUN Creatinine Glucose POC Glucose 119 H 145 H 126 H Lactic Acid Calcium Phosphorus Magnesium AST ALT Alkaline Phosphatase Lactate Dehydrogenase Troponin T C-Reactive Protein NT-Pro-B Natriuret Pep Total Protein Albumin LDL Cholesterol Direct Vitamin B12 Crossmatch 12/19/21 12/20/21 12/20/21 23:30 04:54 04:54 WBC 12.3 H RBC 3.54 L Hgb 10.0 L Hct 29.5 L MCV MCH MCHC RDW 17.8 H Plt Count Seg Neuts % (Manual) 88.0 H Lymphocytes % (Manual) 6.0 L Seg Neutrophils # Man 10.8 H Lymphocytes # (Manual) 0.7 L Monocytes # (Manual) PT INR D-Dimer ABG pH ABG pO2 ABG HCO3 ABG O2 Saturation ABG Base Excess ABG Hemoglobin Oxyhemoglobin Sodium 131 L Potassium Chloride 96.2 L Carbon Dioxide BUN 36 H Creatinine 0.5 L Glucose 130 H POC Glucose 117 H Lactic Acid Calcium Phosphorus Magnesium AST ALT Alkaline Phosphatase Lactate Dehydrogenase Troponin T C-Reactive Protein NT-Pro-B Natriuret Pep Total Protein Albumin LDL Cholesterol Direct Vitamin B12 Crossmatch 12/20/21 05:20 WBC RBC Hgb Hct MCV MCH MCHC RDW Plt Count Seg Neuts % (Manual) Lymphocytes % (Manual) Seg Neutrophils # Man Lymphocytes # (Manual) Monocytes # (Manual) PT INR D-Dimer ABG pH ABG pO2 ABG HCO3 ABG O2 Saturation ABG Base Excess ABG Hemoglobin Oxyhemoglobin Sodium Potassium Chloride Carbon Dioxide BUN Creatinine Glucose POC Glucose 126 H Lactic Acid Calcium Phosphorus Magnesium AST ALT Alkaline Phosphatase Lactate Dehydrogenase Troponin T C-Reactive Protein NT-Pro-B Natriuret Pep Total Protein Albumin LDL Cholesterol Direct Vitamin B12 Crossmatch Chest x-ray: image reviewed Allied health notes reviewed: RT
[2021-12-20] MEDS: HYDROcodone/ACETAMINOPHEN 10-325MG TAB FEEDTUBE SCH ×3 (08:12→20:25)
[2021-12-20] MEDS: SUCRALFATE 1 GM/10 ML ORAL LIQD PO SCH ×4 (08:12→22:28)
[2021-12-20] MEDS: MIDODRINE 5 MG TAB PO SCH ×2 (09:53→20:25)
[2021-12-20] MEDS: busPIRone 5 MG TAB PO SCH ×2 (09:57→22:28)
[2021-12-20] MEDS: GABAPENTIN 100 MG CAP PO SCH (10:00)
[2021-12-20] MEDS: FUROSEMIDE 20 MG TAB PO SCH (10:00)
[2021-12-20] MEDS: METOPROLOL TARTRATE 25 MG TAB PO SCH ×2 (10:01→22:29)
[2021-12-20] MEDS: LANSOPRAZOLE 30 MG SOLUTAB FEEDTUBE SCH ×2 (10:02→22:29)
[2021-12-20] MEDS: DOCUSATE SODIUM 100 MG/10 ML ORAL LIQD PO SCH ×2 (10:03→22:28)
[2021-12-20] MEDS: POLYETHYLENE GLYCOL 3350 17 GM POWDER PO SCH (10:03)
[2021-12-20] MEDS: ONDANSETRON 4 MG/2 ML INJ IV PRN (12:43)
--- NOTE | 2021-12-20 13:01 | Progress Note ---
<LONNIE MAURICE - Last Filed: 12/20/21 17:49> Assessment and Plan Assessment and plan: This is a 81-year-old female with known history of diabetes mellitus, hypertension, PPM, and arthritis admitted for sepsis and acute hypoxia respiratory failure 2/2 bilateral pneumonia requiring intubation and ventilatory support Hospital Course to date: 11/04/2021: Empiric therapy with iv levaquin/vancomycin. COVID PCR pending. Will consult ID. PCCM consulted, will follow recs. Hypotensive this AM, ordered bolus and fluids at 150 cc/hr. May require pressor support if bp does not improve. 11/05/2021: GBS on bcx +, currently on rocephin IV. Currently on bipap due to respiratory distress overnight. Worsening BL opacities on CXR. May be volume overload vs pneumonia. Unfortunately bp too low for lasix at this point. WIll continue levophed and bipap. Once able to tolerate, may do trial of albumin/lasi x. Call attempt made to Nir[facility], no response. Will try again tomorrow to update. 11/06/2021: Decompensated overnight requiring intubation. CXR shows worsening interstitial infiltrates. Currenlty on dopamine, levophed, vasopressin. PICC line ordered. Advised RN to place gamble for I/O monitoring. Would benefit from diuresis but very volume overloaded. Prognosis guarded 11/08: Off sedation this am, remains unresponsive only grimace to pain. Hold all sedatives agents for now, patient is off pressors this am. Hypernatremia from today's lab- D5W X1bag, and low K repleted, repeat lab in the am. Severe constipation also noted from KUB, BR added. 11/09: Sudden SPO2 drop in the 60s this am. Patient was manually bagged and deep suctioned. Patient is currently stable on the vent, repeat CXR with no significant change. D/w CCM Mucomyst and brochodilator added. Patient mentation is unchanged, continue to hold off on sedative agents. Neurology consulted. 11/10: Acute DVT noted on bilateral lower extremity Doppler ultrasound therefore she was started on Lovenox treatment dose. Failed SBT. Hypernatremia and hyperchloremia noted, free water flush adjusted. 11/11: Patient noted to be febrile with increasing of the cytosis, UA/BC sent and CXR ordered. ID escalated antibiotics to cefepime. CXR demonstrated mucous plug, bedside bronchoscopy was performed and O ETT was changed over bougie from 6 cm to 7.5. Patient was noted to have a pneumothorax postprocedure and chest tube was placed. Family updated by [facility]. Free water flush increased and will add Jaswant supplementation. 11/12: Patient not noted to follow commands, hypernatremia worsen/persist, increasing free water flush, potassium and magnesium and phosphorus repleted. Hemoglobin noted to be 7.1/24.5 from 7.03/12 yesterday. We will continue to trend and monitor. Vent changes per [facility]. Repeat CXR showed no residual pneumo thorax. Consider waterseal tomorrow. Given persistent leukocytosis antibiotics escalated to cefepime per ID. 11/13: Remains on cefepime and vancomycin, vent changes per [facility]. Anemia noted and given 1 unit PRBC. And beta-charleen held in setting of Levophed drip infusing. Remains on fentanyl drip. 11/14: Patient put on CPAP trial by [facility], will continue chest tube until after extubation. Will rest on assist control. CT brain was cancelled by [facility] and reordered. 11/15: Patient removed chest tube overnight. Will obtain cxr. remains on low dose levo. CTH completed with no acute findings. RT to place on CPAP. 11/16: Hypernatremia/hyperchloremia noted on the increase of day water flushes. Anemia noted and ordered PRBC. asked RT to place on cpap but not done yet 11/17: Patient remains on the vent, awake and following commands. H&H stable s/p 2units PRBCs. GI on consult, no intervention at this time. Will continue protonix gtt and serial H&H Q6hrs. Keep patient NPO for now, D5w added for hypernatremia and NPO status. Plan for IVC filter placement today by Vascular. 11/18: Patient is s/p IVC filter. H&H continue to trend down, hbg 6.1 this am, 1 unit of PRBCs ordered. Plan for possible EGD today by GI. Keep patient NPO, continue PPI drip and serial H&H Q6hrs. Electrolytes repleted, repeat lab in the am 11/19: S/p EGD- larger duodenal ulcer noted, see operative note. GI recommendat ions noted also noted. H&H stable this am. Keep patient on protonix gtt for now. Will keep patient NPO, continue IVF and serial H&H for now. Electrolytes repleted, repeat labs in the am 2/3: Very agitated and restless this am, fentanyl gtt resumed. Patient remains on protonix gtt, H&H remains stable. Will switch protonix gtt to IV BID, continue carafate and okay to resume meds at this time. Will F/u with GI to see if TF can be resumed. Gamble was reinserted overnight for retention. Electrolytes repleted, repeat in the am. Plan for possible PST today for possible extubation per CCM. 11/21: Patient is now on seroquel and patient's home buspar resumed. Patient more calm this morning, fentanyl gtt is off. H&H remains stable and patient is tolerating TF. Patient had a runs of Vtach/PVCs this am, BB added per Cardio. Continue daily PS and wean trial for possible extubation. 11/22: Back on fentanyl gtt overnight , RASS o to -1, following commands. Patient failed PST this am due to increased work of breathing and low SPO2, ABG pending. Patient is also with worsen pitting edema, lasix is still on hold. Will discuss with cardio and CCM to possibly resume lasix. 11/23: MARIA DEL CARMEN overnight. Patient failed PST again this am. Per CCM plan for possible trach and PEG, hold off on IV lasix for now. General surgery consulted and family is aware of possible Trach and PEG. 11/24: Trach/PEG pending this week, continue SBT/SAT as tolerated. No acute events reported overnight. 11/25: Patient was n.p.o. overnight and will remain n.p.o. tonight for trach/PEG tomorrow morning. She failed to support trial again. KUB obtained due to distended belly. 11/26: Patient scheduled for tracheostomy and PEG tube placement today, has been n.p.o. since midnight. No acute events reported overnight. [facility] ordered rosalinda thicone scheduled. 11/27: No acute events reported overnight, patient received trach/PEG yesterday. Has been on feedings since last night. Still awaiting LTAC placement. 11/28: Patient magnesium repleted, repeat a.m. labs, SBT 11/29: Patient complains of chest pain but ECG obtained which showed no acute findings, ordered troponin. Patient failed CPAP yesterday and was trialed again today. levophed was restarted but will aggressively wean 11/30: Patient failed SBT. Continue supportive care. Started gabapentin today 12/01: MARIA DEL CARMEN overnight. Continue daily PST. Case management to arrange possible placement 12/02: Report of dark stools overnight, patient is hemodynamically stable. H&H stable, patient is on PPI. Will continue to trend H&H. Continue daily PST as tolerated. Awaiting LTAC vs SNF placement. 12/03: Hypotensive overnight, requiring low dose pressors. S/p X3 days of gentle diurese. Will continue to monitor, wean off pressors as tolerated for MAP of 65. Patient Failed PST yesterday, case management to follow up with insurance for possible LTAC placement. Continue daily PST as tolerated. PT eval and treat ordered. 12/04: Increased agitation and anxiety overnight, remains on buspar and seroquel, trazadone added to promote rest. Patient is now working with PT, keep patient engage and awake during the day so she can rest at night. No BM for over 5 days, BR was adjusted. Patient did not tolerate PST again yesterday, continue daily PST as tolerated. Continue to titrate pressor for MAP above 65. Pending possible LTAC placement, case management to arrange. 12/05: Still not getting much rest overnight, will add melatonin for sleep. Continue to engage patient during the day and promote rest at night. TF was held due to concern for possible bleeding, H&H remains stable and stools normal this am. Resume TF and continue PPI and carafate. Remains on low dose levophed, titrate as tolerated. Continue daily PST. Possible LTAC placement, awaiting approval. 12/06: MARIA DEL CARMEN overnight. Patient rested overnight. Continue supportive measures. Daily PST as tolerated. Awaiting possible LTAC placement 12/07: MARIA DEL CARMEN overnight. Plan for Tpiece trial today. Continue current supportive measures. Possible LTAC placement 12/08: Patient placed on pressure support trial again today, started on Xanax, no acute events reported overnight. Awaiting insurance approval for LTAC. 12/09: Levophed discontinued, LTAC transfer denied, started on midodrine and Lasix, ultrasound chest pending, started on Xanax 0.[address] De León updated family at bedside today. Started on Dilaudid every 3 hours as needed. 12/10: Patient placed on CPAP trial this morning, no acute events reported overnight. Will order ultrasound-guided thoracentesis. 12/11: Patient had a thoracentesis today, will decrease Xanax dosage and continue midodrine and diuresing. Patient failed CPAP today. 12/12: Patient not tolerate CPAP trials today, no acute events reported overnight 12/13: No acute events overnight. continue PSV trials as tolerated. Daughter updated at bedside 12/14: Patient noted to be anemic today, worsened gastric occult. Patient seems to be oversedated therefore Xanax changed to as needed and fentanyl patch discontinued. We will continue to monitor hyponatremia. 12/15: MARIA DEL CARMEN overnight. s/p 1unit of PRBCs, H&H stable this am, no signs of any active bleeding. Continue daily PST as tolerated. Awaiting placement. 12/16: Hypertensive this am, Midodrine decreased. Continue daily PST. MARIA DEL CARMEN overnight 12/17: Patient Hgb dropped to 6 this am, no s/s of any active bleeding, VSS. Patient received 1unit of PRBC, will continue to trend H&H. Patient was pancultured and back on IV Abx due to persistent fevers yesterday. ID is also back on the case. Continue IV Abx per ID and f/u on cultures data for sensitivity. Patient also failed PST yesterday, continue daily PST as tolerated. Electrolytes repleted, repeat labs in the am. 12/18: Patient blood cultures is growing GPC 4 out 4 bottles. PICC line D/Sara, patient is already on IV Abx-cefepine and Vanc and ID is following. Patient remains hemodynamically stable. Daily PST as tolerated adn PRN Benzo for anxiety. 12/19: MARIA DEL CARMEN overnight. Culture data noted, continue IV Abx per ID. Orders placed for repeat Bculture. Gamble D/C overnight, patient is voiding. Check bladder scan as needed for retention. Patient failed PST again today. Continue daily PST as tolerated. 12/20: Fevers improved, Cultures +MRSA, on Vanco per ID. Repeat 2D Echo to r/o endocarditis. Patient continue to fail PST, PEEP increased to 8 today. Continue pulmonary hygiene and vent wean per [facility]. Sodium tab added for hyponatremia. Assessment and Plan #MRSA Bacteremia #MRSA Pneumonia #Septic Shock POA-resolved - Presented with fevers, leukocytosis, and hypotension - COVID PCR negative - 11/04 Bcult with 3/4 group B strep bacteremia, [id number] Bculture NGTD - 11/04 2D Echo with no evidence of vegetation - New fevers on 12/16- Blood and sputum culture with MRSA - 12/16- UA is unremarkable - 12/18 repeat B.culture with NGTD - Repeat 2D echo pending - ID on consult, appreciate recommendations - On vanc per ID - Trend CBC #Acute Hypoxic Respiratory Failure 11/19 #MRSA Pneumonia #Bilateral Pleural Effusion #Right Pneumothorax-resolved - COVID PCR negative - CXR shows Bilateral opacities, may be volume overloaded - CCM consulted, appreciate recommendations - Intubated on 11/06, ETT exchanged on 11/11 - 11/11 Bronchoscopy--Complicated by spontaneous pneumothorax - 11/11 S/p chest tube placement for right pneumothorax, removed by patient on 11/15 - 11/26 s/p Tracheostomy and PEGtube placement - 12/11 US thoracentesis due to moderate pleural effusion-1L removed - This am Vent Setting:A/C-30%,8,14,400 - On PO Lasix - Continue Nebs treatment - Continue daily PST as tolerated - VAP bundle addressed - Aspiration precaution HOB above 30 - PRN ABG and CXR per [facility] - Continue SPO2 monitoring for SPO2 goal above 92% #CHF- EF 30-35% with PPM #Hypotension-resolved #Septic Kristian-resolved - SR on the monitor, HR 70-90s - 11/04 Echo-EF 30-35% - Continue beta-charleen - Not on aspirin due to allergy - Statins resumed - Continue blood pressure monitor per protocol - Maintain MAP above 65 - Cardiology signed off #Acute Microcytic Anemia #Acute Blood Loss-resolved #Acute GI Bleed-resolved - s/p a total of 7units of PRBCs since admit - 11/18 EGD- Large cratered ulcer in the posterior duodenal bulb about 2 cm in diameter. Visible vessel present. Mild active oozing from the ulcer bed. A total of 3 injections were performed around the ulcer for a total of 2.5 cc of dilute epinephrine and hemostasis was obtained.--> See full report - GI signed off - Stool occult still positive - H&H stable - Continue PPI and Carafate - Continue to trend CBC - Transfuse for H&H less than 7 - Hold AC for now #Hyponatremia #Hypokalemia - On PO lasix - X1 dose of PO sodium tab given - Strict intake and output - Continue to monitor and replace electrolytes as needed - Trend BMP,mag, & phosp #Urinary Retention-resolved - Gamble reinserted on 11/19 for retention - Gamble D/sara, patient is voided - Bladder scan with no residual #Acute DVT in RLE - BLE doppler + Acute DVT in the right external iliac vein, common femoral vein, and superior aspect of femoral vein - Was on Therapeutic Lovenox- held to due GI Bleed - 11/17 s/p IVC filter placement by Vascular Surg #Agitation/Anxiety #Acute Encephalopathy-Resolved - Awake and following commands - Continue Buspar and seroquel - PRN Xanax for anxiety - CT head noted - Neurology consulted - PRN analgesia for pain management #Transaminitis/Shock Liver - Probably due to bacteria/spetic shock - Continue to Trend LFTs #Endo: h/o DM and hypothyroidism - Continue home Synthroid - Accu-Cheks every 6 - Avoid hypoglycemia The high probability of a clinically significant, sudden or life threatening deterioration of the [multi] system(s) required my full and direct attention, i ntervention and personal management. The aggregate critical care time was [60] minutes. This time is in addition to time spent performing reported procedures but includes the following: [x] Data Review and interpretation [x] Patient assessment and monitoring of vital signs [x] Documentation [x] Medication orders and management Disposition Plan: ICU Total Time Spent with Patient (Minutes): 60 History Interval history: Patient seen and examined at the bedside. Remains stable on the vent, AAO, f ollowing commands. Failed PST this am due to increased tachypnea and anxiety. MARIA DEL CARMEN overnight Hospitalist Physical - Constitutional Vitals: Temp Pulse Resp BP Pulse Ox 98 F 90 18 133/73 100 12/20/21 08:00 12/20/21 12:40 12/20/21 11:00 12/20/21 12:40 12/20/21 12:40 General appearance: Present: no acute distress, other (Trach and on the vent) - EENT Eyes: Present: PERRL, EOM intact ENT: hearing intact - Neck Neck: Present: normal ROM - Respiratory Respiratory effort: normal Respiratory: bilateral: rhonchi - Cardiovascular Rhythm: regular Heart Sounds: Present: S1 & S2 - Extremities Extremities: no ischemia, pulses intact, pulses symmetrical Extremity abnormal: edema - Peripheral Assessment Left Upper Extremity Edema Type: Pitting Edema Degree: 2+ Capillary Refill: < 3 seconds Skin Temperature: Warm Generalized Edema Type: Non-pitting Edema Degree: 1+ Capillary Refill: < 3 seconds Skin Temperature: Warm Peripheral Pulses: within normal limits - Abdominal General gastrointestinal: soft, non-distended, normal bowel sounds - Integumentary Integumentary: Present: warm, dry - Psychiatric Psychiatric: cooperative, depressed (anxiety) - Neurologic Neurologic: moves all extremities, other (Trach and on the vent, AAO, following commands) - Allied Health Allied health notes reviewed: nursing, case management HEART Score - HEART Score Troponin: Troponin T 0.045 ng/mL (0.00-0.029) H 11/29/21 20:15 Results - Labs CBC & Chem 7: 12/20/21 04:54 12/20/21 04:54 Labs: Laboratory Last Values WBC 12.3 K/mm3 (4.5-11.0) H 12/20/21 04:54 RBC 3.54 M/mm3 (3.65-5.03) L 12/20/21 04:54 Hgb 10.0 gm/dl (10.1-14.3) L 12/20/21 04:54 Hct 29.5 % (30.3-42.9) L 12/20/21 04:54 MCV 83 fl (79-97) 12/20/21 04:54 MCH 28 pg (28-32) 12/20/21 04:54 MCHC 34 % (30-34) 12/20/21 04:54 RDW 17.8 % (13.2-15.2) H 12/20/21 04:54 Plt Count 270 K/mm3 (140-440) 12/20/21 04:54 Add Manual Diff Complete 12/20/21 04:54 Total Counted 100 12/20/21 04:54 Seg Neutrophils % Motor Bike Mechanic 11/06/21 15:50 Seg Neuts % (Manual) 88.0 % (40.0-70.0) H 12/20/21 04:54 Band Neutrophils % 0 % 12/20/21 04:54 Lymphocytes % (Manual) 6.0 % (13.4-35.0) L 12/20/21 04:54 Reactive Lymphs % (Man) 0 % 12/20/21 04:54 Monocytes % (Manual) 5.0 % (0.0-7.3) 12/20/21 04:54 Eosinophils % (Manual) 1.0 % (0.0-4.3) 12/20/21 04:54 Basophils % (Manual) 0 % (0.0-1.8) 12/20/21 04:54 Metamyelocytes % 0 % 12/20/21 04:54 Myelocytes % 0 % 12/20/21 04:54 Promyelocytes % 0 % 12/20/21 04:54 Blast Cells % 0 % 12/20/21 04:54 Nucleated RBC % Not Reportable 12/20/21 04:54 Seg Neutrophils # Man 10.8 K/mm3 (1.8-7.7) H 12/20/21 04:54 Band Neutrophils # 0.0 K/mm3 12/20/21 04:54 Lymphocytes # (Manual) 0.7 K/mm3 (1.2-5.4) L 12/20/21 04:54 Abs React Lymphs (Man) 0.0 K/mm3 12/20/21 04:54 Monocytes # (Manual) 0.6 K/mm3 (0.0-0.8) 12/20/21 04:54 Eosinophils # (Manual) 0.1 K/mm3 (0.0-0.4) 12/20/21 04:54 Basophils # (Manual) 0.0 K/mm3 (0.0-0.1) 12/20/21 04:54 Metamyelocytes # 0.0 K/mm3 12/20/21 04:54 Myelocytes # 0.0 K/mm3 12/20/21 04:54 Promyelocytes # 0.0 K/mm3 12/20/21 04:54 Blast Cells # 0.0 K/mm3 12/20/21 04:54 WBC Morphology Not Reportable 12/20/21 04:54 Hypersegmented Neuts Not Reportable 12/20/21 04:54 Hyposegmented Neuts Not Reportable 12/20/21 04:54 Hypogranular Neuts Not Reportable 12/20/21 04:54 Smudge Cells Not Reportable 12/20/21 04:54 Toxic Granulation Not Reportable 12/20/21 04:54 Toxic Vacuolation Not Reportable 12/20/21 04:54 Dohle Bodies Not Reportable 12/20/21 04:54 Pelger-Huet Anomaly Not Reportable 12/20/21 04:54 Irina Rods Not Reportable 12/20/21 04:54 Platelet Estimate Consistent w auto 12/20/21 04:54 Clumped Platelets Not Reportable 12/20/21 04:54 Plt Clumps, EDTA Not Reportable 12/20/21 04:54 Large Platelets Not Reportable 12/20/21 04:54 Giant Platelets Not Reportable 12/20/21 04:54 Platelet Satelliting Not Reportable 12/20/21 04:54 Plt Morphology Comment Not Reportable 12/20/21 04:54 RBC Morphology Not Reportable 12/20/21 04:54 Dimorphic RBCs Not Reportable 12/20/21 04:54 Polychromasia Not Reportable 12/20/21 04:54 Hypochromasia Not Reportable 12/20/21 04:54 Poikilocytosis Not Reportable 12/20/21 04:54 Anisocytosis 1+ 12/20/21 04:54 Microcytosis Not Reportable 12/20/21 04:54 Macrocytosis Not Reportable 12/20/21 04:54 Spherocytes Not Reportable 12/20/21 04:54 Pappenheimer Bodies Not Reportable 12/20/21 04:54 Sickle Cells Not Reportable 12/20/21 04:54 Target Cells Not Reportable 12/20/21 04:54 Tear Drop Cells Not Reportable 12/20/21 04:54 Ovalocytes Not Reportable 12/20/21 04:54 Helmet Cells Not Reportable 12/20/21 04:54 [place] Bodies Not Reportable 12/20/21 04:54 [place] Rings Not Reportable 12/20/21 04:54 Conde Cells Not Reportable 12/20/21 04:54 Bite Cells Not Reportable 12/20/21 04:54 Crenated Cell Not Reportable 12/20/21 04:54 Elliptocytes Not Reportable 12/20/21 04:54 Acanthocytes (Spur) Not Reportable 12/20/21 04:54 Rouleaux Not Reportable 12/20/21 04:54 Hemoglobin C Crystals Not Reportable 12/20/21 04:54 Schistocytes Not Reportable 12/20/21 04:54 Malaria parasites Not Reportable 12/20/21 04:54 Godfrey Bodies Not Reportable 12/20/21 04:54 Hem Pathologist Commnt No 12/20/21 04:54 PT 16.9 Sec. (12.2-14.9) H 11/26/21 05:00 INR 1.24 (0.87-1.13) H 11/26/21 05:00 APTT 29.2 Sec. (24.2-36.6) 11/26/21 05:00 D-Dimer 2655.00 ng/mlDDU (0-234) H 11/11/21 04:28 ABG pH 7.479 pH Units (7.350-7.450) H 12/16/21 20:52 ABG pCO2 37.5 mm Hg 12/16/21 20:52 ABG pO2 79.3 mm Hg (80.0-90.0) L 12/16/21 20:52 ABG HCO3 27.3 mmol/L (20.0-26.0) H 12/16/21 20:52 ABG O2 Saturation 97.0 % (95.0-99.0) 12/16/21 20:52 ABG O2 Content 12.3 (0.0-44) 12/16/21 20:52 ABG Base Excess 3.6 mmol/L (-2.0-3.0) H 12/16/21 20:52 ABG Hemoglobin 9.1 gm/dl (12.0-16.0) L 12/16/21 20:52 ABG Carboxyhemoglobin 1.6 % (0.0-5.0) 12/16/21 20:52 ABG Methemoglobin 0.5 % (0.0-1.5) 12/16/21 20:52 Oxyhemoglobin 94.9 % (95.0-99.0) L 12/16/21 20:52 FiO2 30 % 12/16/21 20:52 Sodium 131 mmol/L (137-145) L 12/20/21 04:54 Potassium 4.2 mmol/L (3.6-5.0) 12/20/21 04:54 Chloride 96.2 mmol/L (98-107) L 12/20/21 04:54 Carbon Dioxide 24 mmol/L (22-30) 12/20/21 04:54 Anion Gap 15 mmol/L 12/20/21 04:54 BUN 36 mg/dL (7-17) H 12/20/21 04:54 Creatinine 0.5 mg/dL (0.6-1.2) L 12/20/21 04:54 Estimated GFR > 60 ml/min 12/20/21 04:54 BUN/Creatinine Ratio 72 % 12/20/21 04:54 Glucose 130 mg/dL (65-100) H 12/20/21 04:54 POC Glucose 119 mg/dL (70-105) H 12/20/21 11:51 Lactic Acid 3.70 mmol/L (0.7-2.0) H* 11/03/21 22:32 Calcium 8.7 mg/dL (8.4-10.2) 12/20/21 04:54 Phosphorus 2.90 mg/dL (2.5-4.5) 12/18/21 05:04 Magnesium 2.10 mg/dL (1.7-2.3) 12/18/21 05:04 Ferritin 52.6 ng/mL (10.0-200.0) 11/05/21 06:11 Total Bilirubin 0.50 mg/dL (0.1-1.2) 11/17/21 05:56 Direct Bilirubin < 0.2 mg/dL (0-0.2) 11/11/21 04:28 Indirect Bilirubin 0.1 mg/dL 11/11/21 04:28 AST 36 units/L (5-40) 11/17/21 05:56 ALT 47 units/L (7-56) 11/17/21 05:56 Alkaline Phosphatase 107 units/L (35-129) 11/17/21 05:56 Ammonia 42.0 umol/L (25-60) 11/10/21 14:08 Lactate Dehydrogenase 187 units/L (91-180) H 11/05/21 06:11 Troponin T 0.045 ng/mL (0.00-0.029) H 11/29/21 20:15 C-Reactive Protein 22.20 mg/dL (0.00-1.30) H 11/05/21 06:11 NT-Pro-B Natriuret Pep 7895 pg/mL (0-900) H 11/03/21 22:32 Total Protein 5.1 g/dL (6.3-8.2) L 11/17/21 05:56 Albumin 2.2 g/dL (3.9-5) L 11/17/21 05:56 Albumin/Globulin Ratio 0.8 % 11/17/21 05:56 Triglycerides 59 mg/dL (2-149) 11/29/21 20:15 Cholesterol 74 mg/dL (50-199) 11/29/21 20:15 LDL Cholesterol Direct 25 mg/dL (50-130) L 11/29/21 20:15 HDL Cholesterol 41 mg/dL (40-59) 11/29/21 20:15 Cholesterol/HDL Ratio 1.80 % 11/29/21 20:15 Vitamin B12 1823 pg/mL (211-911) H 11/10/21 14:08 TSH 1.510 mlU/mL (0.270-4.200) 11/10/21 14:08 Urine Color Yellow (Yellow) 11/11/21 09:00 Urine Turbidity Slightly-cloudy (Clear) 11/11/21 09:00 Urine pH 5.0 (5.0-7.0) 11/11/21 09:00 Ur Specific [place] 1.009 (1.003-1.030) 11/11/21 09:00 Urine Protein <15 mg/dl mg/dL (Negative) 11/11/21 09:00 Urine Glucose (UA) Neg mg/dL (Negative) 11/11/21 09:00 Urine Ketones Neg mg/dL (Negative) 11/11/21 09:00 Urine Blood Mod (Negative) 11/11/21 09:00 Urine Nitrite Neg (Negative) 11/11/21 09:00 Urine Bilirubin Neg (Negative) 11/11/21 09:00 Urine Urobilinogen < 2.0 mg/dL (<2.0) 01/25/22 09:00 Ur Leukocyte Esterase Neg (Negative) 11/11/21 09:00 Urine WBC (Auto) < 1.0 /HPF (0.0-6.0) 11/11/21 09:00 Urine RBC (Auto) < 1.0 /HPF (0.0-6.0) 11/11/21 09:00 Vancomycin Trough 15.5 ug/mL (5.0-20.0) 12/19/21 13:48 Coronavirus (PCR) Negative (Negative) 11/10/21 08:30 Blood Type O POSITIVE 12/14/21 10:30 Antibody Screen Negative 12/14/21 10:30 Crossmatch See Detail 12/14/21 10:30 Microbiology: Microbiology 12/19/21 09:36 Peripheral/Venous Blood Culture - Preliminary NO GROWTH AFTER 24 HOURS 12/19/21 09:36 Peripheral/Venous Blood Culture - Preliminary NO GROWTH AFTER 24 HOURS 12/16/21 Unknown Tracheal Aspirate Sputum Culture - Final Methicillin Resist S. Aureus 12/16/21 15:09 Peripheral/Venous Blood Culture - Final Methicillin Resist S. Aureus 12/16/21 14:53 Peripheral/Venous Blood Culture - Final Methicillin Resist S. Aureus Gamble/IV: Voiding Method Indwelling Catheter Active Medications - Current Medications Current Medications: Generic Name Dose Route Start Last Admin Trade Name Freq PRN Reason Stop Dose Admin Acetaminophen 650 mg 12/14/21 04:12 12/16/21 13:34 Acetaminophen 325 Mg/10.15 Ml Oral Liqd Unit Dose FEEDTUBE 650 mg Q6H PRN Administration Non Cardiac Pain or Temp>100.5 Hydrocodone Bitart/Acetaminophen 1 each 11/21/21 10:00 12/20/21 08:12 Hydrocodone/Acetaminophen 10-325mg Tab FEEDTUBE 1 each TID YOSSI Administration Alprazolam 0.25 mg 12/14/21 09:00 12/20/21 08:12 Alprazolam 0.25 Mg Tab PO 0.25 mg Q8H PRN Administration Agitation Lipase/Protease/Amylase 1 each 11/08/21 11:09 Lipase 10,500/Protease 25,000/Amylase 43,750 (Units) Dr Cap FEEDTUBE PRN PRN For Clogged Feeding Tube Buspirone HCl 7.5 mg 11/17/21 22:00 12/20/21 09:57 Buspirone 5 Mg Tab PO 7.5 mg BID YOSSI Administration Dextrose 0 ml 11/10/21 10:52 11/21/21 16:27 Dextrose 10% *Hypoglycemia IV 50 ml PRN PRN Administration Hypoglycemia Docusate Sodium 100 mg 12/04/21 11:00 12/20/21 10:03 Docusate Sodium 100 Mg/10 Ml Oral Liqd PO Not Given BID YOSSI Furosemide 20 mg 12/09/21 10:00 12/20/21 10:00 Furosemide 20 Mg Tab PO 20 mg QDAY YOSSI Administration Gabapentin 100 mg 12/01/21 10:00 12/20/21 10:00 Gabapentin 100 Mg Cap PO 100 mg QDAY YOSSI Administration Hydromorphone HCl 0.5 mg 12/08/21 20:06 12/20/21 03:35 Hydromorphone 1 Mg/1 Ml Inj IV 0.5 mg Q3H PRN Administration Pain, Moderate (4-6) Hydrophilic Ointment 1 applic 11/06/21 04:02 Lip Therapy Vaseline TP Q2HR PRN Dry Lips Vancomycin HCl 1 gm in 250 mls @ 166.667 mls/hr 12/16/21 14:00 12/19/21 14:53 Vancomycin/Ns 1 Gm/250 Ml IV 166.66 mls/hr Q24H YOSSI Administration Protocol Lansoprazole 30 mg 11/24/21 22:00 12/20/21 10:02 Lansoprazole 30 Mg Solutab FEEDTUBE 30 mg BID YOSSI Administration Levothyroxine Sodium 125 mcg 11/05/21 07:00 12/20/21 06:42 Levothyroxine 125 Mcg Tab PO 125 mcg DAILY@0600 [facility] Administration Melatonin 5 mg 12/05/21 22:00 12/19/21 21:52 Melatonin 5 Mg Tab PO 5 mg QHS YOSSI Administration Metoprolol Tartrate 6.25 mg 12/08/21 22:52 12/20/21 10:01 Metoprolol Tartrate 25 Mg Tab PO 6.25 mg BID YOSSI Administration Midodrine 5 mg 12/16/21 20:00 12/20/21 09:53 Midodrine 5 Mg Tab PO Not Given 0800,1999 [facility] Multi-Ingred Cream/Lotion/Oil/Oint 1 applic 11/06/21 04:02 Mineral Oil/Petrolatum, White Ophth Oint 3.5 Gm OU Q4HR PRN Dry Eye(s) Nitroglycerin 0.4 mg 11/30/21 11:36 Nitroglycerin 0.4 Mg Tab Subl SL .Q5MIN PRN Chest Pain Ondansetron HCl 4 mg 12/05/21 10:00 12/20/21 12:43 Ondansetron 4 Mg/2 Ml Inj IV 4 mg Q8H PRN Administration Nausea And Vomiting Polyethylene Glycol 17 gm 12/02/21 10:00 12/20/21 10:03 Polyethylene Glycol 3350 17 Gm Powder PO Not Given QDAY YOSSI Pravastatin Sodium 20 mg 11/18/21 22:00 12/19/21 21:54 Pravastatin 20 Mg Tab PO 20 mg QHS YOSSI Administration Quetiapine Fumarate 50 mg 12/01/21 22:00 12/19/21 21:54 Quetiapine 25 Mg Tab PO 50 mg QHS YOSSI Administration Simple Syrup 15 ml 11/08/21 11:09 Simple Syrup 15 Ml FEEDTUBE PRN PRN Hypoglycemia Simple Syrup 30 ml 11/08/21 11:09 Simple Syrup 15 Ml FEEDTUBE PRN PRN Hypoglycemia Sodium Bicarbonate 325 mg 11/08/21 11:09 Sodium Bicarbonate 325 Mg Tab FEEDTUBE PRN PRN For Clogged Feeding Tube Sodium Chloride 10 ml 11/04/21 10:00 12/20/21 10:02 Sodium Chloride 0.9% 10 Ml Flush Syringe IV 10 ml BID YOSSI Administration Sodium Chloride 10 ml 11/04/21 02:03 Sodium Chloride 0.9% 10 Ml Flush Syringe IV PRN PRN LINE FLUSH Sucralfate 1 gm 11/18/21 16:30 12/20/21 11:58 Sucralfate 1 Gm/10 Ml Oral Liqd PO 1 gm ACHS YOSSI Administration Trazodone HCl 50 mg 12/04/21 22:00 12/19/21 21:52 Trazodone 50 Mg Tab PO 50 mg QHS YOSSI Administration Nutrition/Malnutrition Assess - Dietary Evaluation Nutrition/Malnutrition Findings: Nutrition Notes Start: 11/04/21 17:16 Freq: Status: Active Protocol: Document 12/15/21 15:12 ISABELL (Rec: 12/15/21 15:41 ISABELL [id number]) Nutrition Notes Initial or Follow up Reassessment Current Diagnosis Diabetes,Sepsis,Hypertension, Heart Failure,Respiratory Failure Other Pertinent Diagnosis Bilateral Pneumonia, L-Pleural Effusion, Pulmonary HTN, HFrEF, GI Bleed. Current Diet TF-Vital AF 1.2 @ 40 ml/hr ( since 11/30) Labs/Tests 12/15: Na 134, Cl 95.7, BUN 28 , Glu 129, Ca 8.2. Pertinent Medications 12/15: Levothyroxine, others nutritionally unremarkable. Height 5 ft Weight 62.4 kg [place] Body Weight (kg) 45.45 BMI 26.9 Weight change and time frame No body weight change reported in 1 month. Weight Status Appropriate Subjective/Other Information RD consult for routine TF tolerance. TF continues as prescribed, well tolerated, no gastric residues, according to RN notes. Pt continues on Mechanical Ventilation. Pt is having difficulties for discharge, due to LT[facility] refusing transfer at the time. Percent of energy/protein needs met: Prescribed Vital AF 1.2 Tamir @ 40 ml/hr provides for energy/ protein needs (1,150 Kcal/72 g ) during LOS, 95% Kcal; 96% AA . Burn Absent Trauma Absent GI Symptoms Other Difficulty In Swallowing,Chewing Skin Integrity/Comment Lower Extremities Pressure Ulcer. Current % PO Other Minimum of two criteria No #1 Nutrition Diagnosis Inadequate oral intake Diagnosis Progress(for reassessment Continues documentation) Is patient on ventilator? Yes Is Patient Ambulatory and/or Out of Bed No REE-([facility]-confined to bed) [phone] Calculation Used for Recommendations [facility] Additional Notes Protein: 1.2-2 g/Kg; 75-125 g/ day. Fluids: 1 ml/Kcal, or as per MD. Nutrition Intervention Nutrition Support: Continue Vital AF 1.2 Tamir @ 40 ml/hr. Flush: 65 ml water Q 4 hr, or as per MD. Kcal 1,150 Protein (gm) 72 Carbohydrates (gm) 106 Fat (gm) 52 Fluid (mL) 779 Fiber (gm) 5 % RDI: 95% Kcal; 96% AA. Goal #1 Provide at least 75% of energy /protein needs through Enteral Feeding during LOS. Goal #2 Maintain body weight within +/ -3% of admission body weight during LOS. Follow-Up By: 12/22/21 Additional Comments Continue monitoring TF tolerance and BM. <LEAH ALFONSO E - Last Filed: 12/21/21 07:18> Assessment and Plan Assessment and plan: I saw and evaluated the patient. I agree with the findings and the plan of care as documented in the Nurse Practitioner's~note, with the following corrections and additions. Poor prognosis Hospitalist Physical - Constitutional Vitals: Temp Pulse Resp BP Pulse Ox 97.6 F 68 11 L 89/51 95 12/21/21 00:00 12/21/21 06:00 12/21/21 06:00 12/21/21 06:00 12/21/21 06:00 HEART Score - HEART Score Troponin: Troponin T 0.045 ng/mL (0.00-0.029) H 11/29/21 20:15 Results - Labs CBC & Chem 7: 12/21/21 04:21 12/21/21 04:21 Labs: Laboratory Last Values WBC 8.9 K/mm3 (4.5-11.0) 12/21/21 04:21 RBC 3.47 M/mm3 (3.65-5.03) L 12/21/21 04:21 Hgb 9.4 gm/dl (10.1-14.3) L 12/21/21 04:21 Hct 29.2 % (30.3-42.9) L 12/21/21 04:21 MCV 84 fl (79-97) 12/21/21 04:21 MCH 27 pg (28-32) L 12/21/21 04:21 MCHC 32 % (30-34) 12/21/21 04:21 RDW 18.1 % (13.2-15.2) H 12/21/21 04:21 Plt Count 229 K/mm3 (140-440) 12/21/21 04:21 Add Manual Diff Complete 12/20/21 04:54 Total Counted 100 12/20/21 04:54 Seg Neutrophils % Motor [employer]ike [employer] 11/06/21 15:50 Seg Neuts % (Manual) 88.0 % (40.0-70.0) H 12/20/21 04:54 Band Neutrophils % 0 % 12/20/21 04:54 Lymphocytes % (Manual) 6.0 % (13.4-35.0) L 12/20/21 04:54 Reactive Lymphs % (Man) 0 % 12/20/21 04:54 Monocytes % (Manual) 5.0 % (0.0-7.3) 12/20/21 04:54 Eosinophils % (Manual) 1.0 % (0.0-4.3) 12/20/21 04:54 Basophils % (Manual) 0 % (0.0-1.8) 12/20/21 04:54 Metamyelocytes % 0 % 12/20/21 04:54 Myelocytes % 0 % 12/20/21 04:54 Promyelocytes % 0 % 12/20/21 04:54 Blast Cells % 0 % 12/20/21 04:54 Nucleated RBC % Not Reportable 12/20/21 04:54 Seg Neutrophils # Man 10.8 K/mm3 (1.8-7.7) H 12/20/21 04:54 Band Neutrophils # 0.0 K/mm3 12/20/21 04:54 Lymphocytes # (Manual) 0.7 K/mm3 (1.2-5.4) L 12/20/21 04:54 Abs React Lymphs (Man) 0.0 K/mm3 12/20/21 04:54 Monocytes # (Manual) 0.6 K/mm3 (0.0-0.8) 12/20/21 04:54 Eosinophils # (Manual) 0.1 K/mm3 (0.0-0.4) 12/20/21 04:54 Basophils # (Manual) 0.0 K/mm3 (0.0-0.1) 12/20/21 04:54 Metamyelocytes # 0.0 K/mm3 12/20/21 04:54 Myelocytes # 0.0 K/mm3 12/20/21 04:54 Promyelocytes # 0.0 K/mm3 12/20/21 04:54 Blast Cells # 0.0 K/mm3 12/20/21 04:54 WBC Morphology Not Reportable 12/20/21 04:54 Hypersegmented Neuts Not Reportable 12/20/21 04:54 Hyposegmented Neuts Not Reportable 12/20/21 04:54 Hypogranular Neuts Not Reportable 12/20/21 04:54 Smudge Cells Not Reportable 12/20/21 04:54 Toxic Granulation Not Reportable 12/20/21 04:54 Toxic Vacuolation Not Reportable 12/20/21 04:54 Dohle Bodies Not Reportable 12/20/21 04:54 Pelger-Huet Anomaly Not Reportable 12/20/21 04:54 Irina Rods Not Reportable 12/20/21 04:54 Platelet Estimate Consistent w auto 12/20/21 04:54 Clumped Platelets Not Reportable 12/20/21 04:54 Plt Clumps, EDTA Not Reportable 12/20/21 04:54 Large Platelets Not Reportable 12/20/21 04:54 Giant Platelets Not Reportable 12/20/21 04:54 Platelet Satelliting Not Reportable 12/20/21 04:54 Plt Morphology Comment Not Reportable 12/20/21 04:54 RBC Morphology Not Reportable 12/20/21 04:54 Dimorphic RBCs Not Reportable 12/20/21 04:54 Polychromasia Not Reportable 12/20/21 04:54 Hypochromasia Not Reportable 12/20/21 04:54 Poikilocytosis Not Reportable 12/20/21 04:54 Anisocytosis 1+ 12/20/21 04:54 Microcytosis Not Reportable 12/20/21 04:54 Macrocytosis Not Reportable 12/20/21 04:54 Spherocytes Not Reportable 12/20/21 04:54 Pappenheimer Bodies Not Reportable 12/20/21 04:54 Sickle Cells Not Reportable 12/20/21 04:54 Target Cells Not Reportable 12/20/21 04:54 Tear Drop Cells Not Reportable 12/20/21 04:54 Ovalocytes Not Reportable 12/20/21 04:54 Helmet Cells Not Reportable 12/20/21 04:54 [place] Bodies Not Reportable 12/20/21 04:54 [place] Rings Not Reportable 12/20/21 04:54 [place] Cells Not Reportable 12/20/21 04:54 Bite Cells Not Reportable 12/20/21 04:54 Crenated Cell Not Reportable 12/20/21 04:54 Elliptocytes Not Reportable 12/20/21 04:54 Acanthocytes (Spur) Not Reportable 12/20/21 04:54 Rouleaux Not Reportable 12/20/21 04:54 Hemoglobin C Crystals Not Reportable 12/20/21 04:54 Schistocytes Not Reportable 12/20/21 04:54 Malaria parasites Not Reportable 12/20/21 04:54 Godfrey Bodies Not Reportable 12/20/21 04:54 Hem Pathologist Commnt No 12/20/21 04:54 PT 16.9 Sec. (12.2-14.9) H 11/26/21 05:00 INR 1.24 (0.87-1.13) H 11/26/21 05:00 APTT 29.2 Sec. (24.2-36.6) 11/26/21 05:00 D-Dimer 2655.00 ng/mlDDU (0-234) H 11/11/21 04:28 ABG pH 7.479 pH Units (7.350-7.450) H 12/16/21 20:52 ABG pCO2 37.5 mm Hg 12/16/21 20:52 ABG pO2 79.3 mm Hg (80.0-90.0) L 12/16/21 20:52 ABG HCO3 27.3 mmol/L (20.0-26.0) H 12/16/21 20:52 ABG O2 Saturation 97.0 % (95.0-99.0) 12/16/21 20:52 ABG O2 Content 12.3 (0.0-44) 12/16/21 20:52 ABG Base Excess 3.6 mmol/L (-2.0-3.0) H 12/16/21 20:52 ABG Hemoglobin 9.1 gm/dl (12.0-16.0) L 12/16/21 20:52 ABG Carboxyhemoglobin 1.6 % (0.0-5.0) 12/16/21 20:52 ABG Methemoglobin 0.5 % (0.0-1.5) 12/16/21 20:52 Oxyhemoglobin 94.9 % (95.0-99.0) L 12/16/21 20:52 FiO2 30 % 12/16/21 20:52 Sodium 134 mmol/L (137-145) L 12/21/21 04:21 Potassium 4.0 mmol/L (3.6-5.0) 12/21/21 04:21 Chloride 98.6 mmol/L (98-107) 12/21/21 04:21 Carbon Dioxide 23 mmol/L (22-30) 12/21/21 04:21 Anion Gap 16 mmol/L 12/21/21 04:21 BUN 35 mg/dL (7-17) H 12/21/21 04:21 Creatinine 0.5 mg/dL (0.6-1.2) L 12/21/21 04:21 Estimated GFR > 60 ml/min 12/21/21 04:21 BUN/Creatinine Ratio 70 % 12/21/21 04:21 Glucose 122 mg/dL (65-100) H 12/21/21 04:21 POC Glucose 127 mg/dL (70-105) H 12/21/21 05:38 Lactic Acid 3.70 mmol/L (0.7-2.0) H* 11/03/21 22:32 Calcium 8.2 mg/dL (8.4-10.2) L 12/21/21 04:21 Phosphorus 3.40 mg/dL (2.5-4.5) 12/21/21 04:21 Magnesium 1.70 mg/dL (1.7-2.3) 12/21/21 04:21 Ferritin 52.6 ng/mL (10.0-200.0) 11/05/21 06:11 Total Bilirubin 0.50 mg/dL (0.1-1.2) 11/17/21 05:56 Direct Bilirubin < 0.2 mg/dL (0-0.2) 11/11/21 04:28 Indirect Bilirubin 0.1 mg/dL 11/11/21 04:28 AST 36 units/L (5-40) 11/17/21 05:56 ALT 47 units/L (7-56) 11/17/21 05:56 Alkaline Phosphatase 107 units/L (35-129) 11/17/21 05:56 Ammonia 42.0 umol/L (25-60) 11/10/21 14:08 Lactate Dehydrogenase 187 units/L (91-180) H 11/05/21 06:11 Troponin T 0.045 ng/mL (0.00-0.029) H 11/29/21 20:15 C-Reactive Protein 22.20 mg/dL (0.00-1.30) H 11/05/21 06:11 NT-Pro-B Natriuret Pep 7895 pg/mL (0-900) H 11/03/21 22:32 Total Protein 5.1 g/dL (6.3-8.2) L 11/17/21 05:56 Albumin 2.2 g/dL (3.9-5) L 11/17/21 05:56 Albumin/Globulin Ratio 0.8 % 11/17/21 05:56 Triglycerides 59 mg/dL (2-149) 11/29/21 20:15 Cholesterol 74 mg/dL (50-199) 11/29/21 20:15 LDL Cholesterol Direct 25 mg/dL (50-130) L 11/29/21 20:15 HDL Cholesterol 41 mg/dL (40-59) 11/29/21 20:15 Cholesterol/HDL Ratio 1.80 % 11/29/21 20:15 Vitamin B12 1823 pg/mL (211-911) H 11/10/21 14:08 TSH 1.510 mlU/mL (0.270-4.200) 11/10/21 14:08 Urine Color Yellow (Yellow) 11/11/21 09:00 Urine Turbidity Slightly-cloudy (Clear) 11/11/21 09:00 Urine pH 5.0 (5.0-7.0) 11/11/21 09:00 Ur Specific [place] 1.009 (1.003-1.030) 11/11/21 09:00 Urine Protein <15 mg/dl mg/dL (Negative) 11/11/21 09:00 Urine Glucose (UA) Neg mg/dL (Negative) 11/11/21 09:00 Urine Ketones Neg mg/dL (Negative) 11/11/21 09:00 Urine Blood Mod (Negative) 11/11/21 09:00 Urine Nitrite Neg (Negative) 11/11/21 09:00 Urine Bilirubin Neg (Negative) 11/11/21 09:00 Urine Urobilinogen < 2.0 mg/dL (<2.0) 11/11/21 09:00 Ur Leukocyte Esterase Neg (Negative) 11/11/21 09:00 Urine WBC (Auto) < 1.0 /HPF (0.0-6.0) 11/11/21 09:00 Urine RBC (Auto) < 1.0 /HPF (0.0-6.0) 11/11/21 09:00 Vancomycin Trough 15.5 ug/mL (5.0-20.0) 12/19/21 13:48 Coronavirus (PCR) Negative (Negative) 11/10/21 08:30 Blood Type O POSITIVE 12/14/21 10:30 Antibody Screen Negative 12/14/21 10:30 Crossmatch See Detail 12/14/21 10:30 Microbiology: Microbiology 12/19/21 09:36 Peripheral/Venous Blood Culture - Preliminary NO GROWTH AFTER 24 HOURS 12/19/21 09:36 Peripheral/Venous Blood Culture - Preliminary NO GROWTH AFTER 24 HOURS Gamble/IV: Voiding Method Indwelling Catheter Active Medications - Current Medications Current Medications: Generic Name Dose Route Start Last Admin Trade Name Freq PRN Reason Stop Dose Admin Acetaminophen 650 mg 12/14/21 04:12 12/16/21 13:34 Acetaminophen 325 Mg/10.15 Ml Oral Liqd Unit Dose FEEDTUBE 650 mg Q6H PRN Administration Non Cardiac Pain or Temp>100.5 Hydrocodone Bitart/Acetaminophen 1 each 11/21/21 10:00 12/20/21 20:25 Hydrocodone/Acetaminophen 10-325mg Tab FEEDTUBE 1 each TID YOSSI Administration Alprazolam 0.25 mg 12/14/21 09:00 12/20/21 20:26 Alprazolam 0.25 Mg Tab PO 0.25 mg Q8H PRN Administration Agitation Lipase/Protease/Amylase 1 each 11/08/21 11:09 Lipase 10,500/Protease 25,000/Amylase 43,750 (Units) Dr Lmea FEEDTUBE PRN PRN For Clogged Feeding Tube Buspirone HCl 7.5 mg 11/17/21 22:00 12/20/21 22:28 Buspirone 5 Mg Tab PO 7.5 mg BID YOSSI Administration Dextrose 0 ml 11/10/21 10:52 11/21/21 16:27 Dextrose 10% *Hypoglycemia IV 50 ml PRN PRN Administration Hypoglycemia Docusate Sodium 100 mg 12/04/21 11:00 12/20/21 22:28 Docusate Sodium 100 Mg/10 Ml Oral Liqd PO 100 mg BID YOSSI Administration Furosemide 20 mg 12/09/21 10:00 12/20/21 10:00 Furosemide 20 Mg Tab PO 20 mg QDAY YOSSI Administration Gabapentin 100 mg 12/01/21 10:00 12/20/21 10:00 Gabapentin 100 Mg Cap PO 100 mg QDAY YOSSI Administration Hydromorphone HCl 0.5 mg 12/08/21 20:06 12/20/21 03:35 Hydromorphone 1 Mg/1 Ml Inj IV 0.5 mg Q3H PRN Administration Pain, Moderate (4-6) Hydrophilic Ointment 1 applic 11/06/21 04:02 Lip Therapy Vaseline TP Q2HR PRN Dry Lips Vancomycin HCl 1 gm in 250 mls @ 166.667 mls/hr 12/16/21 14:00 12/20/21 13:36 Vancomycin/Ns 1 Gm/250 Ml IV 166.66 mls/hr Q24H YOSSI Administration Protocol Lansoprazole 30 mg 11/24/21 22:00 12/20/21 22:29 Lansoprazole 30 Mg Solutab FEEDTUBE 30 mg BID YOSSI Administration Levothyroxine Sodium 125 mcg 11/05/21 07:00 12/21/21 05:45 Levothyroxine 125 Mcg Tab PO 125 mcg DAILY@0600 YOSSI Administration Melatonin 5 mg 12/05/21 22:00 12/20/21 22:29 Melatonin 5 Mg Tab PO 5 mg QHS YOSSI Administration Metoprolol Tartrate 6.25 mg 12/08/21 22:52 12/20/21 22:29 Metoprolol Tartrate 25 Mg Tab PO Not Given BID [facility] Midodrine 5 mg 12/16/21 20:00 12/20/21 20:25 Midodrine 5 Mg Tab PO 5 mg [facility] Administration Multi-Ingred Cream/Lotion/Oil/Oint 1 applic 11/06/21 04:02 Mineral Oil/Petrolatum, White Ophth Oint 3.5 Gm OU Q4HR PRN Dry Eye(s) Nitroglycerin 0.4 mg 11/30/21 11:36 Nitroglycerin 0.4 Mg Tab Subl SL .Q5MIN PRN Chest Pain Ondansetron HCl 4 mg 12/05/21 10:00 12/20/21 12:43 Ondansetron 4 Mg/2 Ml Inj IV 4 mg Q8H PRN Administration Nausea And Vomiting Polyethylene Glycol 17 gm 12/02/21 10:00 12/20/21 10:03 Polyethylene Glycol 3350 17 Gm Powder PO Not Given QDAY YOSSI Pravastatin Sodium 20 mg 11/18/21 22:00 12/20/21 22:29 Pravastatin 20 Mg Tab PO 20 mg QHS YOSSI Administration Quetiapine Fumarate 50 mg 12/01/21 22:00 12/20/21 22:29 Quetiapine 25 Mg Tab PO 50 mg QHS YOSSI Administration Simple Syrup 15 ml 11/08/21 11:09 Simple Syrup 15 Ml FEEDTUBE PRN PRN Hypoglycemia Simple Syrup 30 ml 11/08/21 11:09 Simple Syrup 15 Ml FEEDTUBE PRN PRN Hypoglycemia Sodium Bicarbonate 325 mg 11/08/21 11:09 Sodium Bicarbonate 325 Mg Tab FEEDTUBE PRN PRN For Clogged Feeding Tube Sodium Chloride 10 ml 11/04/21 10:00 12/20/21 22:30 Sodium Chloride 0.9% 10 Ml Flush Syringe IV 10 ml BID YOSSI Administration Sodium Chloride 10 ml 11/04/21 02:03 Sodium Chloride 0.9% 10 Ml Flush Syringe IV PRN PRN LINE FLUSH Sucralfate 1 gm 11/18/21 16:30 12/20/21 22:28 Sucralfate 1 Gm/10 Ml Oral Liqd PO 1 gm ACHS YOSSI Administration Trazodone HCl 50 mg 12/04/21 22:00 12/20/21 22:28 Trazodone 50 Mg Tab PO 50 mg QHS YOSSI Administration Nutrition/Malnutrition Assess - Dietary Evaluation Nutrition/Malnutrition Findings: Nutrition Notes Start: 11/04/21 17:16 Freq: Status: Active Protocol: Document 12/15/21 15:12 ISABELL (Rec: 12/15/21 15:41 ISABELL [id number]) Nutrition Notes Initial or Follow up Reassessment Current Diagnosis Diabetes,Sepsis,Hypertension, Heart Failure,Respiratory Failure Other Pertinent Diagnosis Bilateral Pneumonia, L-Pleural Effusion, Pulmonary HTN, HFrEF, GI Bleed. Current Diet TF-Vital AF 1.2 @ 40 ml/hr ( since 11/30) Labs/Tests 12/15: Na 134, Cl 95.7, BUN 28 , Glu 129, Ca 8.2. Pertinent Medications 12/15: Levothyroxine, others nutritionally unremarkable. Height 5 ft Weight 62.4 kg [place] Body Weight (kg) 45.45 BMI 26.9 Weight change and time frame No body weight change reported in 1 month. Weight Status Appropriate Subjective/Other Information RD consult for routine TF tolerance. TF continues as prescribed, well tolerated, no gastric residues, according to RN notes. Pt continues on Mechanical Ventilation. Pt is having difficulties for discharge, due to LTAC refusing transfer at the time. Percent of energy/protein needs met: Prescribed Vital AF 1.2 Tamir @ 40 ml/hr provides for energy/ protein needs (1,150 Kcal/72 g ) during LOS, 95% Kcal; 96% AA . Burn Absent Trauma Absent GI Symptoms Other Difficulty In Swallowing,Chewing Skin Integrity/Comment Lower Extremities Pressure Ulcer. Current % PO Other Minimum of two criteria No #1 Nutrition Diagnosis Inadequate oral intake Diagnosis Progress(for reassessment Continues documentation) Is patient on ventilator? Yes Is Patient Ambulatory and/or Out of Bed No REE-([facility]-confined to bed) [phone] Calculation Used for Recommendations [facility] Additional Notes Protein: 1.2-2 g/Kg; 75-125 g/ day. Fluids: 1 ml/Kcal, or as per MD. Nutrition Intervention Nutrition Support: Continue Vital AF 1.2 Tamir @ 40 ml/hr. Flush: 65 ml water Q 4 hr, or as per MD. Kcal 1,150 Protein (gm) 72 Carbohydrates (gm) 106 Fat (gm) 52 Fluid (mL) 779 Fiber (gm) 5 % RDI: 95% Kcal; 96% AA. Goal #1 Provide at least 75% of energy /protein needs through Enteral Feeding during LOS. Goal #2 Maintain body weight within +/ -3% of admission body weight during LOS. Follow-Up By: 12/22/21 Additional Comments Continue monitoring TF tolerance and BM.
[2021-12-20] MEDS: VANCOMYCIN/NS 1 GM/250 ML 1 GM/250 ML BAG IV SCH (13:36)
[2021-12-20] MEDS ORDERED: SODIUM CHLORIDE 1 GM TAB PO ONE (14:00)
[2021-12-20] MEDS: traZODone 50 MG TAB PO SCH (22:28)
[2021-12-20] MEDS: QUEtiapine 25 MG TAB PO SCH (22:29)
[2021-12-20] MEDS: PRAVASTATIN 20 MG TAB PO SCH (22:29)
[2021-12-20] MEDS: MELATONIN 5 MG TAB PO SCH (22:29)
[2021-12-21 04:56] LABS: Hematocrit 29.2 % (30.3-42.9); Hemoglobin 9.4 gm/dl (10.1-14.3); Mean Corpuscular HGB Conc 32 % (30-34); Mean Corpuscular Volume 84 fl (79-97); Platelet Count 229 K/mm3 (140-440); Red Blood Count 3.47 M/mm3 (3.65-5.03); Red Cell Distribution Width 18.1 % (13.2-15.2)
[2021-12-21 05:39] LABS: Blood Urea Nitrogen 35 mg/dL (7-17); Calcium 8.2 mg/dL (8.4-10.2); Hemolysis Index 6
[2021-12-21] MEDS: LEVOTHYROXINE 125 MCG TAB PO SCH (05:45)
[2021-12-21 05:47] LABS: BUN/Creatinine Ratio 70
--- NOTE | 2021-12-21 06:51 | Progress Note ---
Assessment and Plan Severe Sepsis POA vs septic shock- 11/03/2021 blood culture: 2 sets positive for GPC -Repeat cultures positive for MRSA Acute respiratory failure with hypoxia, s/p trach on MVS Acute microcytic anemia Bilateral pneumonia Left pleural effusion Cardiomyopathy EF 30-35% Moderate pulmonary HTN RVSP 49 Acute DVT s/p IVC Anemia Mild hyponatremia Daily SBTs as tolerated. Conservative fluid management as tolerated by hemodynamics and renal function Continue to monitor hemoglobin and transfuse as clinically indicated to keep HgB>7g/dL Continue to optimize enteric nutritional support Maintain sleep-wake cycle PT/OT, increase activity Antibiotics- Vancomcyin per ID - continue to titrate supplemental oxygen to keep SPO2 88-90% - VAP bundle addressed, aspiration precautions, HOB >40 - continue bronchodilators with pulmonary hygiene per RT - continue avoid nephrotoxins, renally dose all medications - Accuchecks with glycemic control per SSI (While critically ill target blood glucose of 140-180 mg/dL; avoid hypoglycemia) - continue to avoid benzodiazepines, reduce the possibility of delirium -trend temperature curve, trend WCC, continue to monitor off antibiotics - Maintenance of sleep-wake cycle, avoid delirium -Stress ulcer prophylaxis (Lansoprazole) -VTE prophyalxis- s/p IVC filter. No anticoagulation 11/18 EGD- Large cratered ulcer in the posterior duodenal bulb about 2 cm in diameter.Visible vessel present. Mild active oozing from the ulcer bed. A total of 3 injections were performed around the ulcer for a total of 2.5 cc of dilute epinephrine and hemostasis was obtained. -mobility, off loading and frequent turning to prevent pressure ulcer -continue with enteric nutritional support via PEG, at goal rate - Continue to monitor hemodynamics closely - continue other care per attending / other consultants COVID SPECIFIC INTERVENTIONS - Negative CONDITION: FAIR PROGNOSIS: GUARDED CODE STATUS: FULL CODE The high probability of a clinically significant, sudden or life-threatening deterioration of the [respiratory, cardiovascular and hematologic] system(s) required my full and direct attention, intervention and personal management. The aggregate critical care time was [33] minutes without overlap. Time includes spent on; [x] Data Review and interpretation [x] Patient assessment and monitoring of vital signs [x] Documentation [x] Medication orders and management Subjective Date of service: 12/21/21 Principal diagnosis: Septic shock; AHRF; Anemia; Pneumonia; pleural effusion; HFrEF; Pulm HTN Interval history: Follow up fro acute hypoxemic resp failure s/p tracheostomy to MVS ; Septic and cardiogenic shock; severe anemia; Patient seen and examined. Vitals, labs, medications, chart and imaging reviewed. Discussed with respiratory and nursing care staff. On full support, not tolerating SBTs. MRSA pneumonia and bacteremia on Vancomcyin. Objective Vital Signs - 12hr 12/20/21 12/20/21 12/20/21 19:01 19:31 20:00 Temperature 98.4 F Pulse Rate 72 77 80 Pulse Rate [ 70 From Monitor] Respiratory 14 12 18 Rate Blood Pressure 89/51 89/51 104/62 O2 Sat by Pulse 97 97 Oximetry O2 Sat by Pulse Oximetry [ Assessment] 12/20/21 12/20/21 12/20/21 20:01 20:31 21:00 Temperature Pulse Rate 74 77 78 Pulse Rate [ From Monitor] Respiratory 15 10 L 14 Rate Blood Pressure 104/62 104/62 116/81 O2 Sat by Pulse 97 94 93 Oximetry O2 Sat by Pulse Oximetry [ Assessment] 12/20/21 12/20/21 12/20/21 21:31 22:01 22:29 Temperature Pulse Rate 71 68 71 Pulse Rate [ From Monitor] Respiratory 16 15 Rate Blood Pressure 116/81 95/54 116/81 O2 Sat by Pulse 98 98 Oximetry O2 Sat by Pulse Oximetry [ Assessment] 12/20/21 12/20/21 12/20/21 22:31 23:01 23:31 Temperature Pulse Rate 70 72 64 Pulse Rate [ From Monitor] Respiratory 14 15 15 Rate Blood Pressure 95/54 95/54 92/50 O2 Sat by Pulse 97 97 96 Oximetry O2 Sat by Pulse Oximetry [ Assessment] 12/20/21 12/20/21 12/21/21 23:32 23:35 00:00 Temperature 97.6 F Pulse Rate 65 63 Pulse Rate [ 70 From Monitor] Respiratory 18 Rate Blood Pressure 92/50 O2 Sat by Pulse 96 97 Oximetry O2 Sat by Pulse 97 Oximetry [ Assessment] 12/21/21 12/21/21 12/21/21 00:01 00:31 01:00 Temperature Pulse Rate 65 64 63 Pulse Rate [ From Monitor] Respiratory 16 14 15 Rate Blood Pressure 78/44 84/50 81/49 O2 Sat by Pulse 95 95 96 Oximetry O2 Sat by Pulse Oximetry [ Assessment] 0312/21/21 12/21/21 01:31 02:00 02:31 Temperature Pulse Rate 60 62 72 Pulse Rate [ From Monitor] Respiratory 14 12 19 Rate Blood Pressure 81/49 82/49 82/49 O2 Sat by Pulse 97 97 99 Oximetry O2 Sat by Pulse Oximetry [ Assessment] 12/21/21 12/21/21 12/21/21 03:00 03:31 04:00 Temperature Pulse Rate 63 65 64 Pulse Rate [ 70 From Monitor] Respiratory 14 14 8 L Rate Blood Pressure 83/51 83/51 82/47 O2 Sat by Pulse 97 98 97 Oximetry O2 Sat by Pulse Oximetry [ Assessment] 12/21/21 12/21/21 12/21/21 04:30 05:00 05:31 Temperature Pulse Rate 66 69 64 Pulse Rate [ From Monitor] Respiratory 21 12 9 L Rate Blood Pressure 87/52 91/51 91/51 O2 Sat by Pulse 97 96 95 Oximetry O2 Sat by Pulse Oximetry [ Assessment] 12/21/21 06:00 Temperature Pulse Rate 68 Pulse Rate [ From Monitor] Respiratory 11 L Rate Blood Pressure 89/51 O2 Sat by Pulse 95 Oximetry O2 Sat by Pulse Oximetry [ Assessment] Constitutional: alert, appears uncomfortable (restless really), other (trach to MVS, frail elderly woman with mildly increased respiratory effort at rest) Eyes: non-icteric ENT: oropharynx moist, other (+ Midline tracheostomy with minimal secretions) Neck: supple, no lymphadenopathy, no JVD Effort: mildly labored Ascultation: Bilateral: diminished breath sounds, rhonchi, other (Right chest tube) Percussion: Bilateral: not dull Cardiovascular: regular rate and rhythm, other (S1,S2) Gastrointestinal: normoactive bowel sounds, soft, non-tender, non-distended (protuberant) Integumentary: normal Extremities: no cyanosis, pink and warm, pulses normal, edema (upper etremities) Neurologic: non-focal exam (grossly), pupils equal and round, motor strength normal and Psychiatric: affect normal CBC and BMP: 12/29/21 04:40 12/29/21 04:40 ABG, PT/INR, D-dimer: ABG ABG pH 7.479 pH Units (7.350-7.450) H 12/16/21 20:52 ABG pCO2 37.5 mm Hg 12/16/21 20:52 ABG pO2 79.3 mm Hg (80.0-90.0) L 12/16/21 20:52 ABG O2 Saturation 97.0 % (95.0-99.0) 12/16/21 20:52 PT/INR, D-dimer PT 16.9 Sec. (12.2-14.9) H 11/26/21 05:00 INR 1.24 (0.87-1.13) H 11/26/21 05:00 D-Dimer 2655.00 ng/mlDDU (0-234) H 11/11/21 04:28 Abnormal lab findings: Abnormal Labs 11/03/21 11/03/21 11/03/21 22:32 22:32 22:32 WBC 29.3 H RBC 2.93 L Hgb 6.1 L Hct 21.9 L MCV 75 L MCH 21 L MCHC 28 L RDW 19.7 H Plt Count Seg Neuts % (Manual) 97.0 H Lymphocytes % (Manual) 3.0 L Seg Neutrophils # Man 28.4 H Lymphocytes # (Manual) 0.9 L Monocytes # (Manual) PT 18.6 H INR 1.40 H D-Dimer ABG pH ABG pO2 ABG HCO3 ABG O2 Saturation ABG Base Excess ABG Hemoglobin Oxyhemoglobin Sodium Potassium Chloride Carbon Dioxide 20 L BUN 33 H Creatinine Glucose 119 H POC Glucose Lactic Acid Calcium 8.3 L Phosphorus Magnesium AST ALT Alkaline Phosphatase Lactate Dehydrogenase Troponin T 0.035 H C-Reactive Protein NT-Pro-B Natriuret Pep Total Protein Albumin LDL Cholesterol Direct 34 L Vitamin B12 Crossmatch 11/03/21 11/03/21 11/03/21 22:32 22:32 23:57 WBC RBC Hgb Hct MCV MCH MCHC RDW Plt Count Seg Neuts % (Manual) Lymphocytes % (Manual) Seg Neutrophils # Man Lymphocytes # (Manual) Monocytes # (Manual) PT INR D-Dimer ABG pH ABG pO2 ABG HCO3 ABG O2 Saturation ABG Base Excess ABG Hemoglobin Oxyhemoglobin Sodium Potassium Chloride Carbon Dioxide BUN Creatinine Glucose POC Glucose Lactic Acid 3.70 H* Calcium Phosphorus Magnesium AST ALT Alkaline Phosphatase 139 H Lactate Dehydrogenase Troponin T C-Reactive Protein NT-Pro-B Natriuret Pep 7895 H Total Protein Albumin 3.5 L LDL Cholesterol Direct Vitamin B12 Crossmatch See Detail 11/04/21 11/04/21 11/05/21 00:59 13:58 00:51 WBC 27.9 H RBC 3.28 L Hgb 7.3 L Hct 25.5 L MCV 78 L MCH 22 L MCHC 29 L RDW 19.1 H Plt Count Seg Neuts % (Manual) 96.0 H Lymphocytes % (Manual) 2.0 L Seg Neutrophils # Man 26.8 H Lymphocytes # (Manual) 0.6 L Monocytes # (Manual) PT INR D-Dimer ABG pH ABG pO2 ABG HCO3 ABG O2 Saturation ABG Base Excess ABG Hemoglobin Oxyhemoglobin Sodium Potassium Chloride Carbon Dioxide BUN Creatinine Glucose POC Glucose Lactic Acid Calcium Phosphorus Magnesium AST ALT Alkaline Phosphatase Lactate Dehydrogenase Troponin T 0.051 H D 0.032 H D C-Reactive Protein NT-Pro-B Natriuret Pep Total Protein Albumin LDL Cholesterol Direct Vitamin B12 Crossmatch 11/05/21 11/05/21 11/05/21 06:11 06:11 06:11 WBC 31.8 H RBC 3.57 L Hgb 8.0 L Hct 27.7 L MCV 78 L MCH 22 L MCHC 29 L RDW 19.2 H Plt Count Seg Neuts % (Manual) 91.0 H Lymphocytes % (Manual) 4.5 L Seg Neutrophils # Man 28.9 H Lymphocytes # (Manual) Monocytes # (Manual) 1.1 H PT INR D-Dimer 1494.53 H ABG pH ABG pO2 ABG HCO3 ABG O2 Saturation ABG Base Excess ABG Hemoglobin Oxyhemoglobin Sodium Potassium Chloride Carbon Dioxide 19 L BUN 42 H Creatinine Glucose 115 H POC Glucose Lactic Acid Calcium Phosphorus Magnesium AST 43 H ALT Alkaline Phosphatase Lactate Dehydrogenase 187 H Troponin T C-Reactive Protein 22.20 H NT-Pro-B Natriuret Pep Total Protein 6.0 L Albumin 3.2 L LDL Cholesterol Direct Vitamin B12 Crossmatch 11/05/21 11/05/21 11/06/21 06:11 12:15 00:30 WBC RBC Hgb Hct MCV MCH MCHC RDW Plt Count Seg Neuts % (Manual) Lymphocytes % (Manual) Seg Neutrophils # Man Lymphocytes # (Manual) Monocytes # (Manual) PT INR D-Dimer ABG pH ABG pO2 ABG HCO3 ABG O2 Saturation ABG Base Excess ABG Hemoglobin Oxyhemoglobin Sodium Potassium Chloride Carbon Dioxide BUN Creatinine Glucose POC Glucose 113 H 69 L Lactic Acid Calcium Phosphorus Magnesium AST ALT Alkaline Phosphatase Lactate Dehydrogenase Troponin T 0.033 H C-Reactive Protein NT-Pro-B Natriuret Pep Total Protein Albumin LDL Cholesterol Direct Vitamin B12 Crossmatch 11/06/21 11/06/21 11/06/21 05:50 15:50 15:50 WBC 25.5 H RBC 3.62 L Hgb 8.0 L Hct 27.5 L MCV 76 L MCH 22 L MCHC 29 L RDW 19.6 H Plt Count Seg Neuts % (Manual) 92.0 H Lymphocytes % (Manual) 5.0 L Seg Neutrophils # Man 23.5 H Lymphocytes # (Manual) Monocytes # (Manual) PT INR D-Dimer ABG pH 7.305 L ABG pO2 ABG HCO3 15.8 L ABG O2 Saturation ABG Base Excess -9.6 L ABG Hemoglobin 8.6 L Oxyhemoglobin 94.6 L Sodium Potassium Chloride 113.9 H Carbon Dioxide 17 L BUN 56 H Creatinine Glucose 114 H POC Glucose Lactic Acid Calcium 7.9 L Phosphorus Magnesium AST 1410 H ALT 934 H Alkaline Phosphatase 142 H Lactate Dehydrogenase Troponin T C-Reactive Protein NT-Pro-B Natriuret Pep Total Protein 5.0 L Albumin 2.6 L LDL Cholesterol Direct Vitamin B12 Crossmatch 11/07/21 11/07/21 11/07/21 03:30 04:50 08:07 WBC RBC Hgb Hct MCV MCH MCHC RDW Plt Count Seg Neuts % (Manual) Lymphocytes % (Manual) Seg Neutrophils # Man Lymphocytes # (Manual) Monocytes # (Manual) PT INR D-Dimer ABG pH ABG pO2 296.9 H ABG HCO3 18.1 L ABG O2 Saturation 99.5 H ABG Base Excess -5.9 L ABG Hemoglobin 7.6 L Oxyhemoglobin Sodium Potassium Chloride Carbon Dioxide BUN Creatinine Glucose POC Glucose 106 H 108 H Lactic Acid Calcium Phosphorus Magnesium AST ALT Alkaline Phosphatase Lactate Dehydrogenase Troponin T C-Reactive Protein NT-Pro-B Natriuret Pep Total Protein Albumin LDL Cholesterol Direct Vitamin B12 Crossmatch 11/08/21 11/08/21 11/08/21 03:10 18:05 23:43 WBC RBC Hgb Hct MCV MCH MCHC RDW Plt Count Seg Neuts % (Manual) Lymphocytes % (Manual) Seg Neutrophils # Man Lymphocytes # (Manual) Monocytes # (Manual) PT INR D-Dimer ABG pH ABG pO2 127.4 H ABG HCO3 ABG O2 Saturation ABG Base Excess -3.4 L ABG Hemoglobin 7.4 L Oxyhemoglobin Sodium Potassium Chloride Carbon Dioxide BUN Creatinine Glucose POC Glucose 113 H 141 H Lactic Acid Calcium Phosphorus Magnesium AST ALT Alkaline Phosphatase Lactate Dehydrogenase Troponin T C-Reactive Protein NT-Pro-B Natriuret Pep Total Protein Albumin LDL Cholesterol Direct Vitamin B12 Crossmatch 11/08/21 11/08/21 11/09/21 Unknown Unknown 02:00 WBC 14.5 H RBC 3.35 L Hgb 7.5 L 8.1 L Hct 25.4 L 27.6 L MCV 76 L 76 L MCH 23 L 22 L MCHC RDW 19.9 H 19.9 H Plt Count Seg Neuts % (Manual) Lymphocytes % (Manual) Seg Neutrophils # Man Lymphocytes # (Manual) Monocytes # (Manual) PT INR D-Dimer ABG pH ABG pO2 ABG HCO3 ABG O2 Saturation ABG Base Excess ABG Hemoglobin Oxyhemoglobin Sodium 154 H D Potassium 3.3 L Chloride 120.7 H Carbon Dioxide 20 L BUN 38 H Creatinine Glucose POC Glucose Lactic Acid Calcium 8.3 L Phosphorus Magnesium AST ALT Alkaline Phosphatase Lactate Dehydrogenase Troponin T C-Reactive Protein NT-Pro-B Natriuret Pep Total Protein Albumin LDL Cholesterol Direct Vitamin B12 Crossmatch 11/09/21 11/09/21 11/09/21 02:00 02:31 05:12 WBC RBC Hgb Hct MCV MCH MCHC RDW Plt Count Seg Neuts % (Manual) Lymphocytes % (Manual) Seg Neutrophils # Man Lymphocytes # (Manual) Monocytes # (Manual) PT INR D-Dimer ABG pH 7.479 H ABG pO2 121.3 H ABG HCO3 ABG O2 Saturation ABG Base Excess ABG Hemoglobin 7.3 L Oxyhemoglobin Sodium Potassium Chloride 112.5 H Carbon Dioxide BUN 33 H Creatinine Glucose 161 H POC Glucose 135 H Lactic Acid Calcium Phosphorus Magnesium AST 251 H ALT 481 H Alkaline Phosphatase Lactate Dehydrogenase Troponin T C-Reactive Protein NT-Pro-B Natriuret Pep Total Protein 5.0 L Albumin 2.8 L LDL Cholesterol Direct Vitamin B12 Crossmatch 11/09/21 11/09/21 11/09/21 11:33 16:32 23:28 WBC RBC Hgb Hct MCV MCH MCHC RDW Plt Count Seg Neuts % (Manual) Lymphocytes % (Manual) Seg Neutrophils # Man Lymphocytes # (Manual) Monocytes # (Manual) PT INR D-Dimer ABG pH ABG pO2 ABG HCO3 ABG O2 Saturation ABG Base Excess ABG Hemoglobin Oxyhemoglobin Sodium Potassium Chloride Carbon Dioxide BUN Creatinine Glucose POC Glucose 132 H 133 H 143 H Lactic Acid Calcium Phosphorus Magnesium AST ALT Alkaline Phosphatase Lactate Dehydrogenase Troponin T C-Reactive Protein NT-Pro-B Natriuret Pep Total Protein Albumin LDL Cholesterol Direct Vitamin B12 Crossmatch 11/10/21 11/10/21 11/10/21 04:00 04:00 05:35 WBC 16.0 H RBC 3.61 L Hgb 8.0 L Hct 27.1 L MCV 75 L MCH 22 L MCHC RDW 20.4 H Plt Count Seg Neuts % (Manual) Lymphocytes % (Manual) Seg Neutrophils # Man Lymphocytes # (Manual) Monocytes # (Manual) PT INR D-Dimer ABG pH ABG pO2 ABG HCO3 ABG O2 Saturation ABG Base Excess ABG Hemoglobin Oxyhemoglobin Sodium 149 H Potassium Chloride 114.1 H Carbon Dioxide BUN 31 H Creatinine Glucose 148 H POC Glucose 132 H Lactic Acid Calcium 8.2 L Phosphorus Magnesium AST ALT Alkaline Phosphatase Lactate Dehydrogenase Troponin T C-Reactive Protein NT-Pro-B Natriuret Pep Total Protein Albumin LDL Cholesterol Direct Vitamin B12 Crossmatch 11/10/21 11/10/21 11/10/21 11:31 14:08 15:35 WBC RBC Hgb Hct MCV MCH MCHC RDW Plt Count Seg Neuts % (Manual) Lymphocytes % (Manual) Seg Neutrophils # Man Lymphocytes # (Manual) Monocytes # (Manual) PT INR D-Dimer ABG pH ABG pO2 126.6 H ABG HCO3 ABG O2 Saturation ABG Base Excess ABG Hemoglobin 7.4 L Oxyhemoglobin Sodium Potassium Chloride Carbon Dioxide BUN Creatinine Glucose POC Glucose 147 H Lactic Acid Calcium Phosphorus Magnesium AST ALT Alkaline Phosphatase Lactate Dehydrogenase Troponin T C-Reactive Protein NT-Pro-B Natriuret Pep Total Protein Albumin LDL Cholesterol Direct Vitamin B12 1823 H Crossmatch 11/10/21 11/11/21 11/11/21 17:53 00:55 04:28 WBC RBC Hgb Hct MCV MCH MCHC RDW Plt Count Seg Neuts % (Manual) Lymphocytes % (Manual) Seg Neutrophils # Man Lymphocytes # (Manual) Monocytes # (Manual) PT INR D-Dimer ABG pH ABG pO2 ABG HCO3 ABG O2 Saturation ABG Base Excess ABG Hemoglobin Oxyhemoglobin Sodium 149 H Potassium Chloride 112.2 H Carbon Dioxide BUN 34 H Creatinine Glucose 148 H POC Glucose 140 H 145 H Lactic Acid Calcium 7.9 L Phosphorus Magnesium AST 53 H ALT 203 H Alkaline Phosphatase Lactate Dehydrogenase Troponin T C-Reactive Protein NT-Pro-B Natriuret Pep Total Protein 4.9 L Albumin 2.6 L LDL Cholesterol Direct Vitamin B12 Crossmatch 11/11/21 11/11/21 11/11/21 04:28 04:28 05:28 WBC 20.9 H RBC 3.47 L Hgb 7.5 L Hct 26.0 L MCV 75 L MCH 22 L MCHC 29 L RDW 21.6 H Plt Count 132 L Seg Neuts % (Manual) Lymphocytes % (Manual) Seg Neutrophils # Man Lymphocytes # (Manual) Monocytes # (Manual) PT INR D-Dimer 2655.00 H ABG pH ABG pO2 ABG HCO3 ABG O2 Saturation ABG Base Excess ABG Hemoglobin Oxyhemoglobin Sodium Potassium Chloride Carbon Dioxide BUN Creatinine Glucose POC Glucose 154 H Lactic Acid Calcium Phosphorus Magnesium AST ALT Alkaline Phosphatase Lactate Dehydrogenase Troponin T C-Reactive Protein NT-Pro-B Natriuret Pep Total Protein Albumin LDL Cholesterol Direct Vitamin B12 Crossmatch 11/11/21 11/11/21 11/12/21 12:38 18:13 00:14 WBC RBC Hgb Hct MCV MCH MCHC RDW Plt Count Seg Neuts % (Manual) Lymphocytes % (Manual) Seg Neutrophils # Man Lymphocytes # (Manual) Monocytes # (Manual) PT INR D-Dimer ABG pH ABG pO2 ABG HCO3 ABG O2 Saturation ABG Base Excess ABG Hemoglobin Oxyhemoglobin Sodium Potassium Chloride Carbon Dioxide BUN Creatinine Glucose POC Glucose 137 H 108 H 137 H Lactic Acid Calcium Phosphorus Magnesium AST ALT Alkaline Phosphatase Lactate Dehydrogenase Troponin T C-Reactive Protein NT-Pro-B Natriuret Pep Total Protein Albumin LDL Cholesterol Direct Vitamin B12 Crossmatch 11/12/21 11/12/21 11/12/21 05:40 06:24 11:12 WBC RBC Hgb Hct MCV MCH MCHC RDW Plt Count Seg Neuts % (Manual) Lymphocytes % (Manual) Seg Neutrophils # Man Lymphocytes # (Manual) Monocytes # (Manual) PT INR D-Dimer ABG pH 7.586 H ABG pO2 150.6 H ABG HCO3 27.2 H ABG O2 Saturation 99.1 H ABG Base Excess 5.2 H ABG Hemoglobin 7.5 L Oxyhemoglobin Sodium Potassium Chloride Carbon Dioxide BUN Creatinine Glucose POC Glucose 132 H 140 H Lactic Acid Calcium Phosphorus Magnesium AST ALT Alkaline Phosphatase Lactate Dehydrogenase Troponin T C-Reactive Protein NT-Pro-B Natriuret Pep Total Protein Albumin LDL Cholesterol Direct Vitamin B12 Crossmatch 11/12/21 11/12/21 11/12/21 14:50 14:50 17:13 WBC 19.8 H RBC 3.27 L Hgb 7.1 L Hct 24.5 L MCV 75 L MCH 22 L MCHC 29 L RDW 22.3 H Plt Count Seg Neuts % (Manual) Lymphocytes % (Manual) Seg Neutrophils # Man Lymphocytes # (Manual) Monocytes # (Manual) PT INR D-Dimer ABG pH ABG pO2 ABG HCO3 ABG O2 Saturation ABG Base Excess ABG Hemoglobin Oxyhemoglobin Sodium 150 H Potassium 3.3 L Chloride 112.0 H Carbon Dioxide BUN 40 H Creatinine Glucose 151 H POC Glucose 121 H Lactic Acid Calcium 7.4 L Phosphorus 1.70 L Magnesium 1.40 L AST ALT Alkaline Phosphatase Lactate Dehydrogenase Troponin T C-Reactive Protein NT-Pro-B Natriuret Pep Total Protein Albumin LDL Cholesterol Direct Vitamin B12 Crossmatch 11/12/21 11/13/21 11/13/21 23:19 05:34 06:30 WBC RBC Hgb Hct MCV MCH MCHC RDW Plt Count Seg Neuts % (Manual) Lymphocytes % (Manual) Seg Neutrophils # Man Lymphocytes # (Manual) Monocytes # (Manual) PT INR D-Dimer ABG pH ABG pO2 ABG HCO3 ABG O2 Saturation ABG Base Excess ABG Hemoglobin Oxyhemoglobin Sodium 149 H Potassium Chloride 60.0 L Carbon Dioxide BUN 40 H Creatinine Glucose 146 H POC Glucose 113 H 132 H Lactic Acid Calcium 7.3 L Phosphorus Magnesium 2.40 H AST ALT 72 H Alkaline Phosphatase Lactate Dehydrogenase Troponin T C-Reactive Protein NT-Pro-B Natriuret Pep Total Protein 5.2 L Albumin 2.2 L LDL Cholesterol Direct Vitamin B12 Crossmatch 11/13/21 11/13/21 11/13/21 06:30 08:30 11:19 WBC 21.2 H RBC 3.12 L Hgb 6.8 L Hct 23.2 L MCV 74 L MCH 22 L MCHC 29 L RDW 22.2 H Plt Count 135 L Seg Neuts % (Manual) Lymphocytes % (Manual) Seg Neutrophils # Man Lymphocytes # (Manual) Monocytes # (Manual) PT INR D-Dimer ABG pH ABG pO2 ABG HCO3 ABG O2 Saturation ABG Base Excess ABG Hemoglobin Oxyhemoglobin Sodium Potassium Chloride Carbon Dioxide BUN Creatinine Glucose POC Glucose 136 H Lactic Acid Calcium Phosphorus Magnesium AST ALT Alkaline Phosphatase Lactate Dehydrogenase Troponin T C-Reactive Protein NT-Pro-B Natriuret Pep Total Protein Albumin LDL Cholesterol Direct Vitamin B12 Crossmatch See Detail 11/13/21 11/14/21 11/14/21 18:21 00:01 04:46 WBC 20.0 H RBC 3.41 L Hgb 7.9 L Hct 26.8 L MCV MCH 23 L MCHC 29 L RDW 24.0 H Plt Count Seg Neuts % (Manual) Lymphocytes % (Manual) Seg Neutrophils # Man Lymphocytes # (Manual) Monocytes # (Manual) PT INR D-Dimer ABG pH ABG pO2 ABG HCO3 ABG O2 Saturation ABG Base Excess ABG Hemoglobin Oxyhemoglobin Sodium Potassium Chloride Carbon Dioxide BUN Creatinine Glucose POC Glucose 149 H 141 H Lactic Acid Calcium Phosphorus Magnesium AST ALT Alkaline Phosphatase Lactate Dehydrogenase Troponin T C-Reactive Protein NT-Pro-B Natriuret Pep Total Protein Albumin LDL Cholesterol Direct Vitamin B12 Crossmatch 11/14/21 11/14/21 11/14/21 04:46 05:10 11:10 WBC RBC Hgb Hct MCV MCH MCHC RDW Plt Count Seg Neuts % (Manual) Lymphocytes % (Manual) Seg Neutrophils # Man Lymphocytes # (Manual) Monocytes # (Manual) PT INR D-Dimer ABG pH ABG pO2 ABG HCO3 ABG O2 Saturation ABG Base Excess ABG Hemoglobin Oxyhemoglobin Sodium 148 H Potassium Chloride 113.1 H Carbon Dioxide BUN 43 H Creatinine Glucose 140 H POC Glucose 132 H 133 H Lactic Acid Calcium 7.5 L Phosphorus Magnesium AST ALT Alkaline Phosphatase Lactate Dehydrogenase Troponin T C-Reactive Protein NT-Pro-B Natriuret Pep Total Protein Albumin LDL Cholesterol Direct Vitamin B12 Crossmatch 11/14/21 11/14/21 11/14/21 16:14 17:48 23:23 WBC RBC Hgb Hct MCV MCH MCHC RDW Plt Count Seg Neuts % (Manual) Lymphocytes % (Manual) Seg Neutrophils # Man Lymphocytes # (Manual) Monocytes # (Manual) PT INR D-Dimer ABG pH ABG pO2 ABG HCO3 28.0 H ABG O2 Saturation ABG Base Excess 3.1 H ABG Hemoglobin 5.8 L Oxyhemoglobin 94.8 L Sodium Potassium Chloride Carbon Dioxide BUN Creatinine Glucose POC Glucose 130 H 136 H Lactic Acid Calcium Phosphorus Magnesium AST ALT Alkaline Phosphatase Lactate Dehydrogenase Troponin T C-Reactive Protein NT-Pro-B Natriuret Pep Total Protein Albumin LDL Cholesterol Direct Vitamin B12 Crossmatch 11/15/21 11/15/21 11/15/21 05:20 05:50 05:50 WBC 19.9 H RBC 3.50 L Hgb 8.2 L Hct 27.9 L MCV MCH 23 L MCHC 29 L RDW 24.9 H Plt Count Seg Neuts % (Manual) Lymphocytes % (Manual) Seg Neutrophils # Man Lymphocytes # (Manual) Monocytes # (Manual) PT INR D-Dimer ABG pH ABG pO2 ABG HCO3 ABG O2 Saturation ABG Base Excess ABG Hemoglobin Oxyhemoglobin Sodium 149 H Potassium Chloride 112.0 H Carbon Dioxide BUN 48 H Creatinine Glucose 152 H POC Glucose 137 H Lactic Acid Calcium 7.9 L Phosphorus Magnesium AST ALT Alkaline Phosphatase Lactate Dehydrogenase Troponin T C-Reactive Protein NT-Pro-B Natriuret Pep Total Protein Albumin LDL Cholesterol Direct Vitamin B12 Crossmatch 11/15/21 11/15/21 11/15/21 12:12 17:07 23:24 WBC RBC Hgb Hct MCV MCH MCHC RDW Plt Count Seg Neuts % (Manual) Lymphocytes % (Manual) Seg Neutrophils # Man Lymphocytes # (Manual) Monocytes # (Manual) PT INR D-Dimer ABG pH ABG pO2 ABG HCO3 ABG O2 Saturation ABG Base Excess ABG Hemoglobin Oxyhemoglobin Sodium Potassium Chloride Carbon Dioxide BUN Creatinine Glucose POC Glucose 114 H 135 H 123 H Lactic Acid Calcium Phosphorus Magnesium AST ALT Alkaline Phosphatase Lactate Dehydrogenase Troponin T C-Reactive Protein NT-Pro-B Natriuret Pep Total Protein Albumin LDL Cholesterol Direct Vitamin B12 Crossmatch 11/16/21 11/16/21 11/16/21 05:21 10:00 10:00 WBC 21.7 H RBC 2.57 L Hgb 6.0 L Hct 20.2 L D MCV MCH 24 L MCHC RDW 26.3 H Plt Count Seg Neuts % (Manual) Lymphocytes % (Manual) Seg Neutrophils # Man Lymphocytes # (Manual) Monocytes # (Manual) PT INR D-Dimer ABG pH ABG pO2 ABG HCO3 ABG O2 Saturation ABG Base Excess ABG Hemoglobin Oxyhemoglobin Sodium 153 H Potassium Chloride 114.9 H Carbon Dioxide BUN 74 H Creatinine Glucose 155 H POC Glucose 127 H Lactic Acid Calcium 8.1 L Phosphorus Magnesium AST ALT Alkaline Phosphatase Lactate Dehydrogenase Troponin T C-Reactive Protein NT-Pro-B Natriuret Pep Total Protein Albumin LDL Cholesterol Direct Vitamin B12 Crossmatch 11/16/21 11/16/21 11/16/21 11:34 14:00 15:25 WBC 17.2 H RBC 2.08 L Hgb 4.7 L* Hct 16.2 L* MCV 78 L MCH 23 L MCHC 29 L RDW 26.0 H Plt Count Seg Neuts % (Manual) 87.0 H Lymphocytes % (Manual) 8.0 L Seg Neutrophils # Man 15.0 H Lymphocytes # (Manual) Monocytes # (Manual) 0.9 H PT INR D-Dimer ABG pH ABG pO2 ABG HCO3 ABG O2 Saturation ABG Base Excess ABG Hemoglobin Oxyhemoglobin Sodium Potassium Chloride Carbon Dioxide BUN Creatinine Glucose POC Glucose 131 H Lactic Acid Calcium Phosphorus Magnesium AST ALT Alkaline Phosphatase Lactate Dehydrogenase Troponin T C-Reactive Protein NT-Pro-B Natriuret Pep Total Protein Albumin LDL Cholesterol Direct Vitamin B12 Crossmatch See Detail 11/16/21 11/16/21 11/16/21 15:25 17:21 22:43 WBC RBC Hgb 8.6 L D Hct 27.7 L D MCV MCH MCHC RDW Plt Count Seg Neuts % (Manual) Lymphocytes % (Manual) Seg Neutrophils # Man Lymphocytes # (Manual) Monocytes # (Manual) PT INR D-Dimer ABG pH ABG pO2 ABG HCO3 ABG O2 Saturation ABG Base Excess ABG Hemoglobin Oxyhemoglobin Sodium 148 H Potassium Chloride 113.2 H Carbon Dioxide BUN 84 H Creatinine Glucose 164 H POC Glucose 124 H Lactic Acid Calcium 7.6 L Phosphorus Magnesium AST ALT Alkaline Phosphatase Lactate Dehydrogenase Troponin T C-Reactive Protein NT-Pro-B Natriuret Pep Total Protein Albumin LDL Cholesterol Direct Vitamin B12 Crossmatch 11/16/21 11/17/21 11/17/21 23:07 05:33 05:56 WBC 25.1 H RBC 3.47 L Hgb 8.7 L Hct 28.5 L MCV MCH 25 L MCHC RDW 22.3 H Plt Count Seg Neuts % (Manual) Lymphocytes % (Manual) Seg Neutrophils # Man Lymphocytes # (Manual) Monocytes # (Manual) PT INR D-Dimer ABG pH ABG pO2 ABG HCO3 ABG O2 Saturation ABG Base Excess ABG Hemoglobin Oxyhemoglobin Sodium Potassium Chloride Carbon Dioxide BUN Creatinine Glucose POC Glucose 128 H 133 H Lactic Acid Calcium Phosphorus Magnesium AST ALT Alkaline Phosphatase Lactate Dehydrogenase Troponin T C-Reactive Protein NT-Pro-B Natriuret Pep Total Protein Albumin LDL Cholesterol Direct Vitamin B12 Crossmatch 11/17/21 11/17/21 11/17/21 05:56 11:00 11:55 WBC RBC Hgb 8.3 L Hct 26.9 L MCV MCH MCHC RDW Plt Count Seg Neuts % (Manual) Lymphocytes % (Manual) Seg Neutrophils # Man Lymphocytes # (Manual) Monocytes # (Manual) PT INR D-Dimer ABG pH ABG pO2 ABG HCO3 ABG O2 Saturation ABG Base Excess ABG Hemoglobin Oxyhemoglobin Sodium 151 H Potassium Chloride 113.6 H Carbon Dioxide BUN 85 H Creatinine Glucose 132 H POC Glucose 121 H Lactic Acid Calcium 7.8 L Phosphorus Magnesium AST ALT Alkaline Phosphatase Lactate Dehydrogenase Troponin T C-Reactive Protein NT-Pro-B Natriuret Pep Total Protein 5.1 L Albumin 2.2 L LDL Cholesterol Direct Vitamin B12 Crossmatch 11/17/21 11/17/21 11/18/21 18:04 18:55 00:26 WBC RBC Hgb 7.5 L 7.1 L Hct 24.8 L 23.6 L MCV MCH MCHC RDW Plt Count Seg Neuts % (Manual) Lymphocytes % (Manual) Seg Neutrophils # Man Lymphocytes # (Manual) Monocytes # (Manual) PT INR D-Dimer ABG pH ABG pO2 ABG HCO3 ABG O2 Saturation ABG Base Excess ABG Hemoglobin Oxyhemoglobin Sodium Potassium Chloride Carbon Dioxide BUN Creatinine Glucose POC Glucose 144 H Lactic Acid Calcium Phosphorus Magnesium AST ALT Alkaline Phosphatase Lactate Dehydrogenase Troponin T C-Reactive Protein NT-Pro-B Natriuret Pep Total Protein Albumin LDL Cholesterol Direct Vitamin B12 Crossmatch 11/18/21 11/18/21 11/18/21 00:43 05:10 05:10 WBC 12.5 H RBC 2.39 L Hgb 6.1 L Hct 20.2 L MCV MCH 25 L MCHC RDW 23.2 H Plt Count Seg Neuts % (Manual) Lymphocytes % (Manual) Seg Neutrophils # Man Lymphocytes # (Manual) Monocytes # (Manual) PT INR D-Dimer ABG pH ABG pO2 ABG HCO3 ABG O2 Saturation ABG Base Excess ABG Hemoglobin Oxyhemoglobin Sodium 131 L D Potassium 2.9 L* D Chloride 97.8 L Carbon Dioxide BUN 58 H Creatinine Glucose 665 H* POC Glucose 139 H Lactic Acid Calcium 7.0 L Phosphorus 2.20 L D Magnesium 1.50 L AST ALT Alkaline Phosphatase Lactate Dehydrogenase Troponin T C-Reactive Protein NT-Pro-B Natriuret Pep Total Protein Albumin LDL Cholesterol Direct Vitamin B12 Crossmatch 11/18/21 11/18/21 11/18/21 05:23 07:10 10:45 WBC RBC Hgb Hct MCV MCH MCHC RDW Plt Count Seg Neuts % (Manual) Lymphocytes % (Manual) Seg Neutrophils # Man Lymphocytes # (Manual) Monocytes # (Manual) PT INR D-Dimer ABG pH ABG pO2 ABG HCO3 ABG O2 Saturation ABG Base Excess ABG Hemoglobin Oxyhemoglobin Sodium 148 H D Potassium 3.1 L Chloride 111.9 H Carbon Dioxide BUN 63 H Creatinine Glucose 141 H POC Glucose 124 H Lactic Acid Calcium 8.1 L D Phosphorus Magnesium AST ALT Alkaline Phosphatase Lactate Dehydrogenase Troponin T C-Reactive Protein NT-Pro-B Natriuret Pep Total Protein Albumin LDL Cholesterol Direct Vitamin B12 Crossmatch See Detail 11/18/21 11/19/21 11/19/21 11:57 00:19 04:55 WBC RBC 3.35 L Hgb 9.0 L 8.9 L Hct 28.3 L D 28.1 L MCV MCH 27 L MCHC RDW 20.3 H Plt Count Seg Neuts % (Manual) Lymphocytes % (Manual) Seg Neutrophils # Man Lymphocytes # (Manual) Monocytes # (Manual) PT INR D-Dimer ABG pH ABG pO2 ABG HCO3 ABG O2 Saturation ABG Base Excess ABG Hemoglobin Oxyhemoglobin Sodium Potassium Chloride Carbon Dioxide BUN Creatinine Glucose POC Glucose 119 H Lactic Acid Calcium Phosphorus Magnesium AST ALT Alkaline Phosphatase Lactate Dehydrogenase Troponin T C-Reactive Protein NT-Pro-B Natriuret Pep Total Protein Albumin LDL Cholesterol Direct Vitamin B12 Crossmatch 11/19/21 11/19/21 11/20/21 04:55 05:42 00:55 WBC RBC Hgb 9.0 L Hct 28.6 L MCV MCH MCHC RDW Plt Count Seg Neuts % (Manual) Lymphocytes % (Manual) Seg Neutrophils # Man Lymphocytes # (Manual) Monocytes # (Manual) PT INR D-Dimer ABG pH ABG pO2 ABG HCO3 ABG O2 Saturation ABG Base Excess ABG Hemoglobin Oxyhemoglobin Sodium Potassium 3.5 L Chloride 108.6 H Carbon Dioxide BUN 47 H Creatinine Glucose 207 H POC Glucose 63 L Lactic Acid Calcium 7.1 L Phosphorus Magnesium AST ALT Alkaline Phosphatase Lactate Dehydrogenase Troponin T C-Reactive Protein NT-Pro-B Natriuret Pep Total Protein Albumin LDL Cholesterol Direct Vitamin B12 Crossmatch 11/20/21 11/20/21 11/20/21 05:40 05:40 Unknown WBC RBC 3.40 L Hgb 9.1 L Hct 28.8 L MCV MCH 27 L MCHC RDW 20.7 H Plt Count Seg Neuts % (Manual) Lymphocytes % (Manual) Seg Neutrophils # Man Lymphocytes # (Manual) Monocytes # (Manual) PT INR D-Dimer ABG pH ABG pO2 ABG HCO3 ABG O2 Saturation ABG Base Excess -2.7 L ABG Hemoglobin 9.5 L Oxyhemoglobin 94.3 L Sodium Potassium 3.5 L Chloride 108.9 H Carbon Dioxide BUN 37 H Creatinine Glucose 117 H POC Glucose Lactic Acid Calcium 7.5 L Phosphorus Magnesium AST ALT Alkaline Phosphatase Lactate Dehydrogenase Troponin T C-Reactive Protein NT-Pro-B Natriuret Pep Total Protein Albumin LDL Cholesterol Direct Vitamin B12 Crossmatch 11/21/21 11/21/21 11/21/21 04:30 04:30 16:00 WBC RBC 3.25 L Hgb 8.6 L Hct 28.1 L MCV MCH 26 L MCHC RDW 20.7 H Plt Count Seg Neuts % (Manual) Lymphocytes % (Manual) Seg Neutrophils # Man Lymphocytes # (Manual) Monocytes # (Manual) PT INR D-Dimer ABG pH ABG pO2 114.2 H ABG HCO3 ABG O2 Saturation ABG Base Excess ABG Hemoglobin 9.1 L Oxyhemoglobin Sodium 134 L Potassium Chloride Carbon Dioxide 20 L BUN 34 H Creatinine Glucose POC Glucose Lactic Acid Calcium 7.1 L Phosphorus Magnesium AST ALT Alkaline Phosphatase Lactate Dehydrogenase Troponin T C-Reactive Protein NT-Pro-B Natriuret Pep Total Protein Albumin LDL Cholesterol Direct Vitamin B12 Crossmatch 11/22/21 11/22/21 11/22/21 07:07 07:07 23:54 WBC RBC 3.30 L Hgb 9.0 L Hct 28.5 L MCV MCH 27 L MCHC RDW 21.0 H Plt Count Seg Neuts % (Manual) Lymphocytes % (Manual) Seg Neutrophils # Man Lymphocytes # (Manual) Monocytes # (Manual) PT INR D-Dimer ABG pH ABG pO2 ABG HCO3 ABG O2 Saturation ABG Base Excess ABG Hemoglobin Oxyhemoglobin Sodium Potassium Chloride Carbon Dioxide BUN 32 H Creatinine Glucose 106 H POC Glucose 110 H Lactic Acid Calcium 7.5 L Phosphorus Magnesium AST ALT Alkaline Phosphatase Lactate Dehydrogenase Troponin T C-Reactive Protein NT-Pro-B Natriuret Pep Total Protein Albumin LDL Cholesterol Direct Vitamin B12 Crossmatch 11/23/21 11/23/21 11/23/21 04:38 04:38 06:01 WBC RBC 3.23 L Hgb 8.8 L Hct 28.0 L MCV MCH 27 L MCHC RDW 21.3 H Plt Count Seg Neuts % (Manual) Lymphocytes % (Manual) Seg Neutrophils # Man Lymphocytes # (Manual) Monocytes # (Manual) PT INR D-Dimer ABG pH ABG pO2 ABG HCO3 ABG O2 Saturation ABG Base Excess ABG Hemoglobin Oxyhemoglobin Sodium 136 L Potassium Chloride Carbon Dioxide 20 L BUN 32 H Creatinine Glucose 109 H POC Glucose 115 H Lactic Acid Calcium 7.7 L Phosphorus Magnesium AST ALT Alkaline Phosphatase Lactate Dehydrogenase Troponin T C-Reactive Protein NT-Pro-B Natriuret Pep Total Protein Albumin LDL Cholesterol Direct Vitamin B12 Crossmatch 11/23/21 11/24/21 11/24/21 11:40 00:03 04:13 WBC RBC 3.18 L Hgb 8.5 L Hct 27.5 L MCV MCH 27 L MCHC RDW 21.6 H Plt Count Seg Neuts % (Manual) Lymphocytes % (Manual) Seg Neutrophils # Man Lymphocytes # (Manual) Monocytes # (Manual) PT INR D-Dimer ABG pH ABG pO2 ABG HCO3 ABG O2 Saturation ABG Base Excess ABG Hemoglobin Oxyhemoglobin Sodium Potassium Chloride Carbon Dioxide BUN Creatinine Glucose POC Glucose 117 H 111 H Lactic Acid Calcium Phosphorus Magnesium AST ALT Alkaline Phosphatase Lactate Dehydrogenase Troponin T C-Reactive Protein NT-Pro-B Natriuret Pep Total Protein Albumin LDL Cholesterol Direct Vitamin B12 Crossmatch 11/24/21 11/24/21 11/24/21 04:13 05:30 11:10 WBC RBC Hgb Hct MCV MCH MCHC RDW Plt Count Seg Neuts % (Manual) Lymphocytes % (Manual) Seg Neutrophils # Man Lymphocytes # (Manual) Monocytes # (Manual) PT INR D-Dimer ABG pH ABG pO2 ABG HCO3 ABG O2 Saturation ABG Base Excess ABG Hemoglobin Oxyhemoglobin Sodium Potassium Chloride Carbon Dioxide BUN 31 H Creatinine Glucose 101 H POC Glucose 115 H 107 H Lactic Acid Calcium 7.7 L Phosphorus Magnesium AST ALT Alkaline Phosphatase Lactate Dehydrogenase Troponin T C-Reactive Protein NT-Pro-B Natriuret Pep Total Protein Albumin LDL Cholesterol Direct Vitamin B12 Crossmatch 11/24/21 11/24/21 11/25/21 16:34 17:57 05:12 WBC RBC 3.11 L Hgb 8.2 L Hct 26.6 L MCV MCH 26 L MCHC RDW 21.3 H Plt Count Seg Neuts % (Manual) Lymphocytes % (Manual) Seg Neutrophils # Man Lymphocytes # (Manual) Monocytes # (Manual) PT INR D-Dimer ABG pH ABG pO2 ABG HCO3 ABG O2 Saturation ABG Base Excess ABG Hemoglobin Oxyhemoglobin Sodium Potassium Chloride Carbon Dioxide BUN Creatinine Glucose POC Glucose 115 H 110 H Lactic Acid Calcium Phosphorus Magnesium AST ALT Alkaline Phosphatase Lactate Dehydrogenase Troponin T C-Reactive Protein NT-Pro-B Natriuret Pep Total Protein Albumin LDL Cholesterol Direct Vitamin B12 Crossmatch 11/25/21 11/25/21 11/26/21 05:12 11:20 05:00 WBC RBC 3.30 L Hgb 8.8 L Hct 28.2 L MCV MCH 27 L MCHC RDW 20.7 H Plt Count Seg Neuts % (Manual) Lymphocytes % (Manual) Seg Neutrophils # Man Lymphocytes # (Manual) Monocytes # (Manual) PT INR D-Dimer ABG pH ABG pO2 ABG HCO3 ABG O2 Saturation ABG Base Excess ABG Hemoglobin Oxyhemoglobin Sodium Potassium Chloride Carbon Dioxide BUN 32 H Creatinine Glucose 118 H POC Glucose 118 H Lactic Acid Calcium 8.2 L Phosphorus Magnesium AST ALT Alkaline Phosphatase Lactate Dehydrogenase Troponin T C-Reactive Protein NT-Pro-B Natriuret Pep Total Protein Albumin LDL Cholesterol Direct Vitamin B12 Crossmatch 11/26/21 11/26/21 11/26/21 05:00 05:00 05:44 WBC RBC Hgb Hct MCV MCH MCHC RDW Plt Count Seg Neuts % (Manual) Lymphocytes % (Manual) Seg Neutrophils # Man Lymphocytes # (Manual) Monocytes # (Manual) PT 16.9 H INR 1.24 H D-Dimer ABG pH ABG pO2 ABG HCO3 ABG O2 Saturation ABG Base Excess ABG Hemoglobin Oxyhemoglobin Sodium Potassium Chloride Carbon Dioxide BUN 31 H Creatinine Glucose 104 H POC Glucose 110 H Lactic Acid Calcium 7.9 L Phosphorus Magnesium AST ALT Alkaline Phosphatase Lactate Dehydrogenase Troponin T C-Reactive Protein NT-Pro-B Natriuret Pep Total Protein Albumin LDL Cholesterol Direct Vitamin B12 Crossmatch 11/26/21 11/27/21 11/27/21 23:55 07:40 07:40 WBC RBC 3.18 L Hgb 8.5 L Hct 27.0 L MCV MCH 27 L MCHC RDW 21.2 H Plt Count Seg Neuts % (Manual) Lymphocytes % (Manual) Seg Neutrophils # Man Lymphocytes # (Manual) Monocytes # (Manual) PT INR D-Dimer ABG pH ABG pO2 ABG HCO3 ABG O2 Saturation ABG Base Excess ABG Hemoglobin Oxyhemoglobin Sodium Potassium Chloride Carbon Dioxide BUN 27 H Creatinine Glucose 112 H POC Glucose 63 L Lactic Acid Calcium 7.6 L Phosphorus Magnesium AST ALT Alkaline Phosphatase Lactate Dehydrogenase Troponin T C-Reactive Protein NT-Pro-B Natriuret Pep Total Protein Albumin LDL Cholesterol Direct Vitamin B12 Crossmatch 11/27/21 11/27/21 11/27/21 12:04 13:40 13:40 WBC RBC 3.31 L Hgb 8.7 L Hct 28.0 L MCV MCH 26 L MCHC RDW 20.7 H Plt Count Seg Neuts % (Manual) Lymphocytes % (Manual) Seg Neutrophils # Man Lymphocytes # (Manual) Monocytes # (Manual) PT INR D-Dimer ABG pH ABG pO2 ABG HCO3 ABG O2 Saturation ABG Base Excess ABG Hemoglobin Oxyhemoglobin Sodium 136 L Potassium Chloride Carbon Dioxide BUN 25 H Creatinine Glucose 127 H POC Glucose 109 H Lactic Acid Calcium 7.6 L Phosphorus Magnesium 1.40 L AST ALT Alkaline Phosphatase Lactate Dehydrogenase Troponin T C-Reactive Protein NT-Pro-B Natriuret Pep Total Protein Albumin LDL Cholesterol Direct Vitamin B12 Crossmatch 11/27/21 11/27/21 11/28/21 17:44 23:33 12:20 WBC RBC Hgb Hct MCV MCH MCHC RDW Plt Count Seg Neuts % (Manual) Lymphocytes % (Manual) Seg Neutrophils # Man Lymphocytes # (Manual) Monocytes # (Manual) PT INR D-Dimer ABG pH ABG pO2 ABG HCO3 ABG O2 Saturation ABG Base Excess ABG Hemoglobin Oxyhemoglobin Sodium Potassium Chloride Carbon Dioxide BUN Creatinine Glucose POC Glucose 107 H 108 H 114 H Lactic Acid Calcium Phosphorus Magnesium AST ALT Alkaline Phosphatase Lactate Dehydrogenase Troponin T C-Reactive Protein NT-Pro-B Natriuret Pep Total Protein Albumin LDL Cholesterol Direct Vitamin B12 Crossmatch 11/29/21 11/29/21 11/29/21 00:09 03:20 03:20 WBC RBC 3.05 L Hgb 8.2 L Hct 25.8 L MCV MCH 27 L MCHC RDW 20.9 H Plt Count Seg Neuts % (Manual) Lymphocytes % (Manual) Seg Neutrophils # Man Lymphocytes # (Manual) Monocytes # (Manual) PT INR D-Dimer ABG pH ABG pO2 ABG HCO3 ABG O2 Saturation ABG Base Excess ABG Hemoglobin Oxyhemoglobin Sodium 133 L Potassium Chloride Carbon Dioxide BUN 24 H Creatinine Glucose 137 H POC Glucose 134 H Lactic Acid Calcium 7.4 L Phosphorus Magnesium AST ALT Alkaline Phosphatase Lactate Dehydrogenase Troponin T C-Reactive Protein NT-Pro-B Natriuret Pep Total Protein Albumin LDL Cholesterol Direct Vitamin B12 Crossmatch 11/29/21 11/29/21 11/29/21 05:38 11:39 17:11 WBC RBC Hgb Hct MCV MCH MCHC RDW Plt Count Seg Neuts % (Manual) Lymphocytes % (Manual) Seg Neutrophils # Man Lymphocytes # (Manual) Monocytes # (Manual) PT INR D-Dimer ABG pH ABG pO2 ABG HCO3 ABG O2 Saturation ABG Base Excess ABG Hemoglobin Oxyhemoglobin Sodium Potassium Chloride Carbon Dioxide BUN Creatinine Glucose POC Glucose 117 H 143 H 124 H Lactic Acid Calcium Phosphorus Magnesium AST ALT Alkaline Phosphatase Lactate Dehydrogenase Troponin T C-Reactive Protein NT-Pro-B Natriuret Pep Total Protein Albumin LDL Cholesterol Direct Vitamin B12 Crossmatch 11/29/21 11/30/21 11/30/21 20:15 05:40 05:40 WBC 12.6 H RBC 3.41 L Hgb 9.1 L Hct 28.9 L MCV MCH 27 L MCHC RDW 20.4 H Plt Count Seg Neuts % (Manual) Lymphocytes % (Manual) Seg Neutrophils # Man Lymphocytes # (Manual) Monocytes # (Manual) PT INR D-Dimer ABG pH ABG pO2 ABG HCO3 ABG O2 Saturation ABG Base Excess ABG Hemoglobin Oxyhemoglobin Sodium Potassium Chloride Carbon Dioxide BUN 24 H Creatinine Glucose 131 H POC Glucose Lactic Acid Calcium 7.6 L Phosphorus Magnesium AST ALT Alkaline Phosphatase Lactate Dehydrogenase Troponin T 0.045 H C-Reactive Protein NT-Pro-B Natriuret Pep Total Protein Albumin LDL Cholesterol Direct 25 L Vitamin B12 Crossmatch 11/30/21 11/30/21 12/01/21 11:29 16:51 05:00 WBC RBC 2.97 L Hgb 8.0 L Hct 25.0 L MCV MCH 27 L MCHC RDW 20.8 H Plt Count Seg Neuts % (Manual) Lymphocytes % (Manual) Seg Neutrophils # Man Lymphocytes # (Manual) Monocytes # (Manual) PT INR D-Dimer ABG pH ABG pO2 ABG HCO3 ABG O2 Saturation ABG Base Excess ABG Hemoglobin Oxyhemoglobin Sodium Potassium Chloride Carbon Dioxide BUN Creatinine Glucose POC Glucose 123 H 114 H Lactic Acid Calcium Phosphorus Magnesium AST ALT Alkaline Phosphatase Lactate Dehydrogenase Troponin T C-Reactive Protein NT-Pro-B Natriuret Pep Total Protein Albumin LDL Cholesterol Direct Vitamin B12 Crossmatch 12/01/21 12/01/21 12/01/21 05:00 05:25 11:54 WBC RBC Hgb Hct MCV MCH MCHC RDW Plt Count Seg Neuts % (Manual) Lymphocytes % (Manual) Seg Neutrophils # Man Lymphocytes # (Manual) Monocytes # (Manual) PT INR D-Dimer ABG pH ABG pO2 ABG HCO3 ABG O2 Saturation ABG Base Excess ABG Hemoglobin Oxyhemoglobin Sodium 136 L Potassium Chloride Carbon Dioxide BUN 24 H Creatinine Glucose 117 H POC Glucose 108 H 107 H Lactic Acid Calcium 7.5 L Phosphorus Magnesium 1.60 L AST ALT Alkaline Phosphatase Lactate Dehydrogenase Troponin T C-Reactive Protein NT-Pro-B Natriuret Pep Total Protein Albumin LDL Cholesterol Direct Vitamin B12 Crossmatch 12/01/21 12/02/21 12/02/21 17:40 00:07 04:20 WBC RBC 2.92 L Hgb 7.7 L Hct 24.3 L MCV MCH 26 L MCHC RDW 20.5 H Plt Count Seg Neuts % (Manual) Lymphocytes % (Manual) Seg Neutrophils # Man Lymphocytes # (Manual) Monocytes # (Manual) PT INR D-Dimer ABG pH ABG pO2 ABG HCO3 ABG O2 Saturation ABG Base Excess ABG Hemoglobin Oxyhemoglobin Sodium Potassium Chloride Carbon Dioxide BUN Creatinine Glucose POC Glucose 123 H 110 H Lactic Acid Calcium Phosphorus Magnesium AST ALT Alkaline Phosphatase Lactate Dehydrogenase Troponin T C-Reactive Protein NT-Pro-B Natriuret Pep Total Protein Albumin LDL Cholesterol Direct Vitamin B12 Crossmatch 12/02/21 12/02/21 12/02/21 04:20 11:17 18:20 WBC RBC Hgb Hct MCV MCH MCHC RDW Plt Count Seg Neuts % (Manual) Lymphocytes % (Manual) Seg Neutrophils # Man Lymphocytes # (Manual) Monocytes # (Manual) PT INR D-Dimer ABG pH ABG pO2 ABG HCO3 ABG O2 Saturation ABG Base Excess ABG Hemoglobin Oxyhemoglobin Sodium 135 L Potassium Chloride Carbon Dioxide BUN 26 H Creatinine Glucose 121 H POC Glucose 117 H 113 H Lactic Acid Calcium 7.4 L Phosphorus Magnesium AST ALT Alkaline Phosphatase Lactate Dehydrogenase Troponin T C-Reactive Protein NT-Pro-B Natriuret Pep Total Protein Albumin LDL Cholesterol Direct Vitamin B12 Crossmatch 12/03/21 12/03/21 12/03/21 00:12 04:00 04:00 WBC RBC 2.99 L Hgb 7.8 L Hct 24.6 L MCV MCH 26 L MCHC RDW 20.2 H Plt Count Seg Neuts % (Manual) Lymphocytes % (Manual) Seg Neutrophils # Man Lymphocytes # (Manual) Monocytes # (Manual) PT INR D-Dimer ABG pH ABG pO2 ABG HCO3 ABG O2 Saturation ABG Base Excess ABG Hemoglobin Oxyhemoglobin Sodium 136 L Potassium Chloride Carbon Dioxide BUN 27 H Creatinine Glucose 133 H POC Glucose 121 H Lactic Acid Calcium 7.5 L Phosphorus Magnesium AST ALT Alkaline Phosphatase Lactate Dehydrogenase Troponin T C-Reactive Protein NT-Pro-B Natriuret Pep Total Protein Albumin LDL Cholesterol Direct Vitamin B12 Crossmatch 12/03/21 12/03/21 12/03/21 06:30 11:13 16:00 WBC RBC Hgb Hct MCV MCH MCHC RDW Plt Count Seg Neuts % (Manual) Lymphocytes % (Manual) Seg Neutrophils # Man Lymphocytes # (Manual) Monocytes # (Manual) PT INR D-Dimer ABG pH ABG pO2 ABG HCO3 ABG O2 Saturation ABG Base Excess ABG Hemoglobin Oxyhemoglobin Sodium Potassium Chloride Carbon Dioxide BUN Creatinine Glucose POC Glucose 129 H 125 H 125 H Lactic Acid Calcium Phosphorus Magnesium AST ALT Alkaline Phosphatase Lactate Dehydrogenase Troponin T C-Reactive Protein NT-Pro-B Natriuret Pep Total Protein Albumin LDL Cholesterol Direct Vitamin B12 Crossmatch 12/03/21 12/04/21 12/04/21 23:32 04:00 05:36 WBC RBC Hgb Hct MCV MCH MCHC RDW Plt Count Seg Neuts % (Manual) Lymphocytes % (Manual) Seg Neutrophils # Man Lymphocytes # (Manual) Monocytes # (Manual) PT INR D-Dimer ABG pH ABG pO2 ABG HCO3 ABG O2 Saturation ABG Base Excess ABG Hemoglobin Oxyhemoglobin Sodium Potassium 3.5 L Chloride Carbon Dioxide BUN 26 H Creatinine 0.5 L Glucose 151 H POC Glucose 133 H 142 H Lactic Acid Calcium 8.3 L Phosphorus Magnesium AST ALT Alkaline Phosphatase Lactate Dehydrogenase Troponin T C-Reactive Protein NT-Pro-B Natriuret Pep Total Protein Albumin LDL Cholesterol Direct Vitamin B12 Crossmatch 12/04/21 12/04/21 12/05/21 11:24 15:58 04:36 WBC RBC Hgb Hct MCV MCH MCHC RDW Plt Count Seg Neuts % (Manual) Lymphocytes % (Manual) Seg Neutrophils # Man Lymphocytes # (Manual) Monocytes # (Manual) PT INR D-Dimer ABG pH ABG pO2 ABG HCO3 ABG O2 Saturation ABG Base Excess ABG Hemoglobin Oxyhemoglobin Sodium Potassium Chloride Carbon Dioxide BUN 21 H Creatinine 0.5 L Glucose 119 H POC Glucose 130 H 111 H Lactic Acid Calcium 8.3 L Phosphorus Magnesium AST ALT Alkaline Phosphatase Lactate Dehydrogenase Troponin T C-Reactive Protein NT-Pro-B Natriuret Pep Total Protein Albumin LDL Cholesterol Direct Vitamin B12 Crossmatch 12/05/21 12/05/21 12/05/21 05:15 10:40 11:12 WBC RBC 2.98 L Hgb 8.1 L Hct 24.6 L MCV MCH 27 L MCHC RDW 20.8 H Plt Count Seg Neuts % (Manual) Lymphocytes % (Manual) Seg Neutrophils # Man Lymphocytes # (Manual) Monocytes # (Manual) PT INR D-Dimer ABG pH ABG pO2 ABG HCO3 ABG O2 Saturation ABG Base Excess ABG Hemoglobin Oxyhemoglobin Sodium Potassium Chloride Carbon Dioxide BUN Creatinine Glucose POC Glucose 107 H 110 H Lactic Acid Calcium Phosphorus Magnesium AST ALT Alkaline Phosphatase Lactate Dehydrogenase Troponin T C-Reactive Protein NT-Pro-B Natriuret Pep Total Protein Albumin LDL Cholesterol Direct Vitamin B12 Crossmatch 12/05/21 12/06/21 12/06/21 23:39 04:25 04:25 WBC RBC 2.95 L Hgb 7.9 L Hct 24.7 L MCV MCH 27 L MCHC RDW 20.9 H Plt Count Seg Neuts % (Manual) Lymphocytes % (Manual) Seg Neutrophils # Man Lymphocytes # (Manual) Monocytes # (Manual) PT INR D-Dimer ABG pH ABG pO2 ABG HCO3 ABG O2 Saturation ABG Base Excess ABG Hemoglobin Oxyhemoglobin Sodium Potassium Chloride Carbon Dioxide BUN 22 H Creatinine 0.5 L Glucose 136 H POC Glucose 118 H Lactic Acid Calcium 8.2 L Phosphorus Magnesium AST ALT Alkaline Phosphatase Lactate Dehydrogenase Troponin T C-Reactive Protein NT-Pro-B Natriuret Pep Total Protein Albumin LDL Cholesterol Direct Vitamin B12 Crossmatch 12/06/21 12/06/21 12/07/21 05:28 11:27 04:00 WBC RBC Hgb 7.2 L Hct 21.8 L MCV MCH MCHC RDW Plt Count Seg Neuts % (Manual) Lymphocytes % (Manual) Seg Neutrophils # Man Lymphocytes # (Manual) Monocytes # (Manual) PT INR D-Dimer ABG pH ABG pO2 ABG HCO3 ABG O2 Saturation ABG Base Excess ABG Hemoglobin Oxyhemoglobin Sodium Potassium Chloride Carbon Dioxide BUN Creatinine Glucose POC Glucose 142 H 126 H Lactic Acid Calcium Phosphorus Magnesium AST ALT Alkaline Phosphatase Lactate Dehydrogenase Troponin T C-Reactive Protein NT-Pro-B Natriuret Pep Total Protein Albumin LDL Cholesterol Direct Vitamin B12 Crossmatch 12/07/21 12/07/21 12/07/21 04:00 05:30 11:12 WBC RBC Hgb Hct MCV MCH MCHC RDW Plt Count Seg Neuts % (Manual) Lymphocytes % (Manual) Seg Neutrophils # Man Lymphocytes # (Manual) Monocytes # (Manual) PT INR D-Dimer ABG pH ABG pO2 ABG HCO3 ABG O2 Saturation ABG Base Excess ABG Hemoglobin Oxyhemoglobin Sodium Potassium Chloride Carbon Dioxide BUN 22 H Creatinine Glucose 119 H POC Glucose 121 H 124 H Lactic Acid Calcium 8.0 L Phosphorus Magnesium AST ALT Alkaline Phosphatase Lactate Dehydrogenase Troponin T C-Reactive Protein NT-Pro-B Natriuret Pep Total Protein Albumin LDL Cholesterol Direct Vitamin B12 Crossmatch 12/08/21 12/08/21 12/08/21 04:00 04:00 05:39 WBC RBC 2.81 L Hgb 7.7 L Hct 23.5 L MCV MCH MCHC RDW 21.2 H Plt Count Seg Neuts % (Manual) Lymphocytes % (Manual) Seg Neutrophils # Man Lymphocytes # (Manual) Monocytes # (Manual) PT INR D-Dimer ABG pH ABG pO2 ABG HCO3 ABG O2 Saturation ABG Base Excess ABG Hemoglobin Oxyhemoglobin Sodium 135 L Potassium Chloride Carbon Dioxide BUN 23 H Creatinine Glucose 109 H POC Glucose 112 H Lactic Acid Calcium Phosphorus Magnesium AST ALT Alkaline Phosphatase Lactate Dehydrogenase Troponin T C-Reactive Protein NT-Pro-B Natriuret Pep Total Protein Albumin LDL Cholesterol Direct Vitamin B12 Crossmatch 12/08/21 12/09/21 12/09/21 11:03 04:20 04:20 WBC RBC 2.67 L Hgb 7.6 L Hct 22.1 L MCV MCH MCHC RDW 20.8 H Plt Count Seg Neuts % (Manual) Lymphocytes % (Manual) Seg Neutrophils # Man Lymphocytes # (Manual) Monocytes # (Manual) PT INR D-Dimer ABG pH ABG pO2 ABG HCO3 ABG O2 Saturation ABG Base Excess ABG Hemoglobin Oxyhemoglobin Sodium 135 L Potassium Chloride 97.8 L Carbon Dioxide BUN 26 H Creatinine Glucose 119 H POC Glucose 108 H Lactic Acid Calcium 7.7 L Phosphorus Magnesium AST ALT Alkaline Phosphatase Lactate Dehydrogenase Troponin T C-Reactive Protein NT-Pro-B Natriuret Pep Total Protein Albumin LDL Cholesterol Direct Vitamin B12 Crossmatch 12/09/21 12/10/21 12/10/21 11:26 04:33 11:12 WBC RBC Hgb Hct MCV MCH MCHC RDW Plt Count Seg Neuts % (Manual) Lymphocytes % (Manual) Seg Neutrophils # Man Lymphocytes # (Manual) Monocytes # (Manual) PT INR D-Dimer ABG pH ABG pO2 ABG HCO3 ABG O2 Saturation ABG Base Excess ABG Hemoglobin Oxyhemoglobin Sodium 136 L Potassium Chloride Carbon Dioxide BUN 27 H Creatinine Glucose 117 H POC Glucose 110 H 117 H Lactic Acid Calcium 8.2 L Phosphorus Magnesium AST ALT Alkaline Phosphatase Lactate Dehydrogenase Troponin T C-Reactive Protein NT-Pro-B Natriuret Pep Total Protein Albumin LDL Cholesterol Direct Vitamin B12 Crossmatch 12/10/21 12/10/21 12/11/21 16:02 23:31 04:35 WBC RBC 2.57 L Hgb 7.0 L Hct 21.4 L MCV MCH 27 L MCHC RDW 21.1 H Plt Count Seg Neuts % (Manual) Lymphocytes % (Manual) Seg Neutrophils # Man Lymphocytes # (Manual) Monocytes # (Manual) PT INR D-Dimer ABG pH ABG pO2 ABG HCO3 ABG O2 Saturation ABG Base Excess ABG Hemoglobin Oxyhemoglobin Sodium Potassium Chloride Carbon Dioxide BUN Creatinine Glucose POC Glucose 137 H 111 H Lactic Acid Calcium Phosphorus Magnesium AST ALT Alkaline Phosphatase Lactate Dehydrogenase Troponin T C-Reactive Protein NT-Pro-B Natriuret Pep Total Protein Albumin LDL Cholesterol Direct Vitamin B12 Crossmatch 12/11/21 12/11/21 12/11/21 04:35 12:46 16:07 WBC RBC Hgb Hct MCV MCH MCHC RDW Plt Count Seg Neuts % (Manual) Lymphocytes % (Manual) Seg Neutrophils # Man Lymphocytes # (Manual) Monocytes # (Manual) PT INR D-Dimer ABG pH ABG pO2 ABG HCO3 ABG O2 Saturation ABG Base Excess ABG Hemoglobin Oxyhemoglobin Sodium 136 L Potassium Chloride Carbon Dioxide BUN 27 H Creatinine Glucose 112 H POC Glucose 115 H 111 H Lactic Acid Calcium 7.6 L Phosphorus Magnesium AST ALT Alkaline Phosphatase Lactate Dehydrogenase Troponin T C-Reactive Protein NT-Pro-B Natriuret Pep Total Protein Albumin LDL Cholesterol Direct Vitamin B12 Crossmatch 12/11/21 12/12/21 12/12/21 23:42 04:30 04:30 WBC RBC 2.60 L Hgb 7.1 L Hct 21.5 L MCV MCH 27 L MCHC RDW 20.3 H Plt Count Seg Neuts % (Manual) Lymphocytes % (Manual) Seg Neutrophils # Man Lymphocytes # (Manual) Monocytes # (Manual) PT INR D-Dimer ABG pH ABG pO2 ABG HCO3 ABG O2 Saturation ABG Base Excess ABG Hemoglobin Oxyhemoglobin Sodium 135 L Potassium Chloride 97.9 L Carbon Dioxide BUN 26 H Creatinine 0.5 L Glucose 138 H POC Glucose 115 H Lactic Acid Calcium 8.2 L Phosphorus Magnesium AST ALT Alkaline Phosphatase Lactate Dehydrogenase Troponin T C-Reactive Protein NT-Pro-B Natriuret Pep Total Protein Albumin LDL Cholesterol Direct Vitamin B12 Crossmatch 12/12/21 12/12/21 12/12/21 04:30 05:10 11:51 WBC RBC Hgb Hct MCV MCH MCHC RDW Plt Count Seg Neuts % (Manual) Lymphocytes % (Manual) Seg Neutrophils # Man Lymphocytes # (Manual) Monocytes # (Manual) PT INR D-Dimer ABG pH ABG pO2 ABG HCO3 ABG O2 Saturation ABG Base Excess ABG Hemoglobin Oxyhemoglobin Sodium Potassium Chloride Carbon Dioxide BUN Creatinine Glucose POC Glucose 119 H 119 H Lactic Acid Calcium Phosphorus Magnesium AST ALT Alkaline Phosphatase Lactate Dehydrogenase Troponin T C-Reactive Protein NT-Pro-B Natriuret Pep Total Protein Albumin LDL Cholesterol Direct Vitamin B12 Crossmatch See Detail 12/13/21 12/13/21 12/13/21 00:52 04:00 04:00 WBC RBC 2.73 L Hgb 7.4 L Hct 22.8 L MCV MCH 27 L MCHC RDW 20.5 H Plt Count Seg Neuts % (Manual) Lymphocytes % (Manual) Seg Neutrophils # Man Lymphocytes # (Manual) Monocytes # (Manual) PT INR D-Dimer ABG pH ABG pO2 ABG HCO3 ABG O2 Saturation ABG Base Excess ABG Hemoglobin Oxyhemoglobin Sodium 134 L Potassium Chloride 96.7 L Carbon Dioxide BUN 23 H Creatinine 0.5 L Glucose 131 H POC Glucose 131 H Lactic Acid Calcium 8.1 L Phosphorus Magnesium AST ALT Alkaline Phosphatase Lactate Dehydrogenase Troponin T C-Reactive Protein NT-Pro-B Natriuret Pep Total Protein Albumin LDL Cholesterol Direct Vitamin B12 Crossmatch 12/13/21 12/13/21 12/13/21 05:23 12:11 17:18 WBC RBC Hgb Hct MCV MCH MCHC RDW Plt Count Seg Neuts % (Manual) Lymphocytes % (Manual) Seg Neutrophils # Man Lymphocytes # (Manual) Monocytes # (Manual) PT INR D-Dimer ABG pH ABG pO2 ABG HCO3 ABG O2 Saturation ABG Base Excess ABG Hemoglobin Oxyhemoglobin Sodium Potassium Chloride Carbon Dioxide BUN Creatinine Glucose POC Glucose 121 H 143 H 148 H Lactic Acid Calcium Phosphorus Magnesium AST ALT Alkaline Phosphatase Lactate Dehydrogenase Troponin T C-Reactive Protein NT-Pro-B Natriuret Pep Total Protein Albumin LDL Cholesterol Direct Vitamin B12 Crossmatch 12/14/21 12/14/21 12/14/21 00:54 04:20 04:20 WBC RBC 2.39 L Hgb 6.5 L Hct 20.3 L MCV MCH 27 L MCHC RDW 20.3 H Plt Count Seg Neuts % (Manual) Lymphocytes % (Manual) Seg Neutrophils # Man Lymphocytes # (Manual) Monocytes # (Manual) PT INR D-Dimer ABG pH ABG pO2 ABG HCO3 ABG O2 Saturation ABG Base Excess ABG Hemoglobin Oxyhemoglobin Sodium 130 L Potassium Chloride 93.5 L Carbon Dioxide BUN 25 H Creatinine Glucose 123 H POC Glucose 123 H Lactic Acid Calcium 8.0 L Phosphorus Magnesium AST ALT Alkaline Phosphatase Lactate Dehydrogenase Troponin T C-Reactive Protein NT-Pro-B Natriuret Pep Total Protein Albumin LDL Cholesterol Direct Vitamin B12 Crossmatch 12/14/21 12/14/21 12/14/21 05:06 08:17 10:30 WBC RBC Hgb Hct MCV MCH MCHC RDW Plt Count Seg Neuts % (Manual) Lymphocytes % (Manual) Seg Neutrophils # Man Lymphocytes # (Manual) Monocytes # (Manual) PT INR D-Dimer ABG pH ABG pO2 ABG HCO3 ABG O2 Saturation ABG Base Excess ABG Hemoglobin Oxyhemoglobin Sodium Potassium Chloride Carbon Dioxide BUN Creatinine Glucose POC Glucose 131 H 119 H Lactic Acid Calcium Phosphorus Magnesium AST ALT Alkaline Phosphatase Lactate Dehydrogenase Troponin T C-Reactive Protein NT-Pro-B Natriuret Pep Total Protein Albumin LDL Cholesterol Direct Vitamin B12 Crossmatch See Detail 12/14/21 12/14/21 12/14/21 12:15 16:37 23:27 WBC RBC Hgb Hct MCV MCH MCHC RDW Plt Count Seg Neuts % (Manual) Lymphocytes % (Manual) Seg Neutrophils # Man Lymphocytes # (Manual) Monocytes # (Manual) PT INR D-Dimer ABG pH ABG pO2 ABG HCO3 ABG O2 Saturation ABG Base Excess ABG Hemoglobin Oxyhemoglobin Sodium Potassium Chloride Carbon Dioxide BUN Creatinine Glucose POC Glucose 147 H 141 H 130 H Lactic Acid Calcium Phosphorus Magnesium AST ALT Alkaline Phosphatase Lactate Dehydrogenase Troponin T C-Reactive Protein NT-Pro-B Natriuret Pep Total Protein Albumin LDL Cholesterol Direct Vitamin B12 Crossmatch 12/15/21 12/15/21 12/15/21 05:00 07:00 07:00 WBC 12.3 H RBC 3.27 L Hgb 8.8 L Hct 27.5 L D MCV MCH 27 L MCHC RDW 19.0 H Plt Count Seg Neuts % (Manual) Lymphocytes % (Manual) Seg Neutrophils # Man Lymphocytes # (Manual) Monocytes # (Manual) PT INR D-Dimer ABG pH ABG pO2 ABG HCO3 ABG O2 Saturation ABG Base Excess ABG Hemoglobin Oxyhemoglobin Sodium 134 L Potassium Chloride 95.7 L Carbon Dioxide BUN 28 H Creatinine Glucose 129 H POC Glucose 129 H Lactic Acid Calcium 8.2 L Phosphorus Magnesium AST ALT Alkaline Phosphatase Lactate Dehydrogenase Troponin T C-Reactive Protein NT-Pro-B Natriuret Pep Total Protein Albumin LDL Cholesterol Direct Vitamin B12 Crossmatch 12/15/21 12/15/21 12/15/21 11:18 16:00 23:39 WBC RBC Hgb Hct MCV MCH MCHC RDW Plt Count Seg Neuts % (Manual) Lymphocytes % (Manual) Seg Neutrophils # Man Lymphocytes # (Manual) Monocytes # (Manual) PT INR D-Dimer ABG pH ABG pO2 ABG HCO3 ABG O2 Saturation ABG Base Excess ABG Hemoglobin Oxyhemoglobin Sodium Potassium Chloride Carbon Dioxide BUN Creatinine Glucose POC Glucose 139 H 137 H 146 H Lactic Acid Calcium Phosphorus Magnesium AST ALT Alkaline Phosphatase Lactate Dehydrogenase Troponin T C-Reactive Protein NT-Pro-B Natriuret Pep Total Protein Albumin LDL Cholesterol Direct Vitamin B12 Crossmatch 12/16/21 12/16/21 12/16/21 05:24 10:21 10:21 WBC 15.3 H RBC 3.24 L Hgb 8.9 L Hct 27.7 L MCV MCH MCHC RDW 19.0 H Plt Count Seg Neuts % (Manual) Lymphocytes % (Manual) Seg Neutrophils # Man Lymphocytes # (Manual) Monocytes # (Manual) PT INR D-Dimer ABG pH ABG pO2 ABG HCO3 ABG O2 Saturation ABG Base Excess ABG Hemoglobin Oxyhemoglobin Sodium 131 L Potassium 3.5 L Chloride 92.7 L Carbon Dioxide BUN 36 H Creatinine Glucose 160 H POC Glucose 121 H Lactic Acid Calcium Phosphorus Magnesium 1.60 L AST ALT Alkaline Phosphatase Lactate Dehydrogenase Troponin T C-Reactive Protein NT-Pro-B Natriuret Pep Total Protein Albumin LDL Cholesterol Direct Vitamin B12 Crossmatch 12/16/21 12/16/21 12/16/21 11:21 18:28 20:52 WBC RBC Hgb Hct MCV MCH MCHC RDW Plt Count Seg Neuts % (Manual) Lymphocytes % (Manual) Seg Neutrophils # Man Lymphocytes # (Manual) Monocytes # (Manual) PT INR D-Dimer ABG pH 7.479 H ABG pO2 79.3 L ABG HCO3 27.3 H ABG O2 Saturation ABG Base Excess 3.6 H ABG Hemoglobin 9.1 L Oxyhemoglobin 94.9 L Sodium Potassium Chloride Carbon Dioxide BUN Creatinine Glucose POC Glucose 153 H 132 H Lactic Acid Calcium Phosphorus Magnesium AST ALT Alkaline Phosphatase Lactate Dehydrogenase Troponin T C-Reactive Protein NT-Pro-B Natriuret Pep Total Protein Albumin LDL Cholesterol Direct Vitamin B12 Crossmatch 12/16/21 12/17/21 12/17/21 23:30 04:25 04:25 WBC 12.3 H RBC 2.16 L Hgb 6.0 L Hct 18.1 L* D MCV MCH MCHC RDW 19.4 H Plt Count Seg Neuts % (Manual) Lymphocytes % (Manual) Seg Neutrophils # Man Lymphocytes # (Manual) Monocytes # (Manual) PT INR D-Dimer ABG pH ABG pO2 ABG HCO3 ABG O2 Saturation ABG Base Excess ABG Hemoglobin Oxyhemoglobin Sodium 132 L Potassium 3.2 L Chloride 112.0 H Carbon Dioxide BUN 32 H Creatinine Glucose 122 H POC Glucose 137 H Lactic Acid Calcium 6.8 L D Phosphorus Magnesium AST ALT Alkaline Phosphatase Lactate Dehydrogenase Troponin T C-Reactive Protein NT-Pro-B Natriuret Pep Total Protein Albumin LDL Cholesterol Direct Vitamin B12 Crossmatch 12/17/21 12/17/21 12/17/21 05:30 11:49 14:45 WBC RBC Hgb 9.7 L D Hct MCV MCH MCHC RDW Plt Count Seg Neuts % (Manual) Lymphocytes % (Manual) Seg Neutrophils # Man Lymphocytes # (Manual) Monocytes # (Manual) PT INR D-Dimer ABG pH ABG pO2 ABG HCO3 ABG O2 Saturation ABG Base Excess ABG Hemoglobin Oxyhemoglobin Sodium Potassium Chloride Carbon Dioxide BUN Creatinine Glucose POC Glucose 137 H 143 H Lactic Acid Calcium Phosphorus Magnesium AST ALT Alkaline Phosphatase Lactate Dehydrogenase Troponin T C-Reactive Protein NT-Pro-B Natriuret Pep Total Protein Albumin LDL Cholesterol Direct Vitamin B12 Crossmatch 12/17/21 12/18/21 12/18/21 17:01 05:04 05:04 WBC 13.8 H RBC 3.44 L Hgb 9.9 L Hct 28.8 L MCV MCH MCHC RDW 18.1 H Plt Count Seg Neuts % (Manual) Lymphocytes % (Manual) Seg Neutrophils # Man Lymphocytes # (Manual) Monocytes # (Manual) PT INR D-Dimer ABG pH ABG pO2 ABG HCO3 ABG O2 Saturation ABG Base Excess ABG Hemoglobin Oxyhemoglobin Sodium 132 L Potassium Chloride 97.4 L Carbon Dioxide BUN 38 H Creatinine Glucose 134 H POC Glucose 132 H Lactic Acid Calcium Phosphorus Magnesium AST ALT Alkaline Phosphatase Lactate Dehydrogenase Troponin T C-Reactive Protein NT-Pro-B Natriuret Pep Total Protein Albumin LDL Cholesterol Direct Vitamin B12 Crossmatch 12/18/21 12/18/21 12/18/21 05:28 10:57 16:27 WBC RBC Hgb Hct MCV MCH MCHC RDW Plt Count Seg Neuts % (Manual) Lymphocytes % (Manual) Seg Neutrophils # Man Lymphocytes # (Manual) Monocytes # (Manual) PT INR D-Dimer ABG pH ABG pO2 ABG HCO3 ABG O2 Saturation ABG Base Excess ABG Hemoglobin Oxyhemoglobin Sodium Potassium Chloride Carbon Dioxide BUN Creatinine Glucose POC Glucose 118 H 132 H 130 H Lactic Acid Calcium Phosphorus Magnesium AST ALT Alkaline Phosphatase Lactate Dehydrogenase Troponin T C-Reactive Protein NT-Pro-B Natriuret Pep Total Protein Albumin LDL Cholesterol Direct Vitamin B12 Crossmatch 12/19/21 12/19/21 12/19/21 00:02 04:41 04:41 WBC 16.0 H RBC 3.45 L Hgb 9.7 L Hct 29.1 L MCV MCH MCHC RDW 17.8 H Plt Count Seg Neuts % (Manual) Lymphocytes % (Manual) Seg Neutrophils # Man Lymphocytes # (Manual) Monocytes # (Manual) PT INR D-Dimer ABG pH ABG pO2 ABG HCO3 ABG O2 Saturation ABG Base Excess ABG Hemoglobin Oxyhemoglobin Sodium 133 L Potassium Chloride 97.9 L Carbon Dioxide BUN 36 H Creatinine 0.5 L Glucose 126 H POC Glucose 127 H Lactic Acid Calcium 8.3 L Phosphorus Magnesium AST ALT Alkaline Phosphatase Lactate Dehydrogenase Troponin T C-Reactive Protein NT-Pro-B Natriuret Pep Total Protein Albumin LDL Cholesterol Direct Vitamin B12 Crossmatch 12/19/21 12/19/21 12/19/21 05:26 12:20 16:43 WBC RBC Hgb Hct MCV MCH MCHC RDW Plt Count Seg Neuts % (Manual) Lymphocytes % (Manual) Seg Neutrophils # Man Lymphocytes # (Manual) Monocytes # (Manual) PT INR D-Dimer ABG pH ABG pO2 ABG HCO3 ABG O2 Saturation ABG Base Excess ABG Hemoglobin Oxyhemoglobin Sodium Potassium Chloride Carbon Dioxide BUN Creatinine Glucose POC Glucose 119 H 145 H 126 H Lactic Acid Calcium Phosphorus Magnesium AST ALT Alkaline Phosphatase Lactate Dehydrogenase Troponin T C-Reactive Protein NT-Pro-B Natriuret Pep Total Protein Albumin LDL Cholesterol Direct Vitamin B12 Crossmatch 12/19/21 12/20/21 12/20/21 23:30 04:54 04:54 WBC 12.3 H RBC 3.54 L Hgb 10.0 L Hct 29.5 L MCV MCH MCHC RDW 17.8 H Plt Count Seg Neuts % (Manual) 88.0 H Lymphocytes % (Manual) 6.0 L Seg Neutrophils # Man 10.8 H Lymphocytes # (Manual) 0.7 L Monocytes # (Manual) PT INR D-Dimer ABG pH ABG pO2 ABG HCO3 ABG O2 Saturation ABG Base Excess ABG Hemoglobin Oxyhemoglobin Sodium 131 L Potassium Chloride 96.2 L Carbon Dioxide BUN 36 H Creatinine 0.5 L Glucose 130 H POC Glucose 117 H Lactic Acid Calcium Phosphorus Magnesium AST ALT Alkaline Phosphatase Lactate Dehydrogenase Troponin T C-Reactive Protein NT-Pro-B Natriuret Pep Total Protein Albumin LDL Cholesterol Direct Vitamin B12 Crossmatch 12/20/21 12/20/21 12/20/21 05:20 11:51 17:30 WBC RBC Hgb Hct MCV MCH MCHC RDW Plt Count Seg Neuts % (Manual) Lymphocytes % (Manual) Seg Neutrophils # Man Lymphocytes # (Manual) Monocytes # (Manual) PT INR D-Dimer ABG pH ABG pO2 ABG HCO3 ABG O2 Saturation ABG Base Excess ABG Hemoglobin Oxyhemoglobin Sodium Potassium Chloride Carbon Dioxide BUN Creatinine Glucose POC Glucose 126 H 119 H 127 H Lactic Acid Calcium Phosphorus Magnesium AST ALT Alkaline Phosphatase Lactate Dehydrogenase Troponin T C-Reactive Protein NT-Pro-B Natriuret Pep Total Protein Albumin LDL Cholesterol Direct Vitamin B12 Crossmatch 12/21/21 12/21/21 12/21/21 00:45 04:21 04:21 WBC RBC 3.47 L Hgb 9.4 L Hct 29.2 L MCV MCH 27 L MCHC RDW 18.1 H Plt Count Seg Neuts % (Manual) Lymphocytes % (Manual) Seg Neutrophils # Man Lymphocytes # (Manual) Monocytes # (Manual) PT INR D-Dimer ABG pH ABG pO2 ABG HCO3 ABG O2 Saturation ABG Base Excess ABG Hemoglobin Oxyhemoglobin Sodium 134 L Potassium Chloride Carbon Dioxide BUN 35 H Creatinine 0.5 L Glucose 122 H POC Glucose 125 H Lactic Acid Calcium 8.2 L Phosphorus Magnesium AST ALT Alkaline Phosphatase Lactate Dehydrogenase Troponin T C-Reactive Protein NT-Pro-B Natriuret Pep Total Protein Albumin LDL Cholesterol Direct Vitamin B12 Crossmatch 12/21/21 05:38 WBC RBC Hgb Hct MCV MCH MCHC RDW Plt Count Seg Neuts % (Manual) Lymphocytes % (Manual) Seg Neutrophils # Man Lymphocytes # (Manual) Monocytes # (Manual) PT INR D-Dimer ABG pH ABG pO2 ABG HCO3 ABG O2 Saturation ABG Base Excess ABG Hemoglobin Oxyhemoglobin Sodium Potassium Chloride Carbon Dioxide BUN Creatinine Glucose POC Glucose 127 H Lactic Acid Calcium Phosphorus Magnesium AST ALT Alkaline Phosphatase Lactate Dehydrogenase Troponin T C-Reactive Protein NT-Pro-B Natriuret Pep Total Protein Albumin LDL Cholesterol Direct Vitamin B12 Crossmatch Allied health notes reviewed: RT
[2021-12-21] MEDS: MIDODRINE 5 MG TAB PO SCH ×2 (08:29→19:02)
[2021-12-21] MEDS: HYDROcodone/ACETAMINOPHEN 10-325MG TAB FEEDTUBE SCH ×3 (08:29→19:02)
[2021-12-21] MEDS: SUCRALFATE 1 GM/10 ML ORAL LIQD PO SCH ×4 (08:30→22:17)
[2021-12-21] MEDS: busPIRone 5 MG TAB PO SCH ×2 (09:27→22:17)
[2021-12-21] MEDS: METOPROLOL TARTRATE 25 MG TAB PO SCH ×2 (09:27→22:18)
[2021-12-21] MEDS: GABAPENTIN 100 MG CAP PO SCH (09:28)
[2021-12-21] MEDS: FUROSEMIDE 20 MG TAB PO SCH (09:28)
[2021-12-21] MEDS ORDERED: SODIUM CHLORIDE 1 GM TAB PO ONE (10:00)
[2021-12-21] MEDS: DOCUSATE SODIUM 100 MG/10 ML ORAL LIQD PO SCH ×2 (10:18→22:17)
[2021-12-21] MEDS: POLYETHYLENE GLYCOL 3350 17 GM POWDER PO SCH (10:18)
[2021-12-21] MEDS: LANSOPRAZOLE 30 MG SOLUTAB FEEDTUBE SCH ×2 (10:19→22:18)
--- NOTE | 2021-12-21 11:53 | Progress Note ---
<LONNIE MAURICE - Last Filed: 12/21/21 16:29> Assessment and Plan Assessment and plan: This is a 81-year-old female with known history of diabetes mellitus, hypertension, PPM, and arthritis admitted for sepsis and acute hypoxia respiratory failure 2/2 bilateral pneumonia requiring intubation and ventilatory support Hospital Course to date: 11/04/2021: Empiric therapy with iv levaquin/vancomycin. COVID PCR pending. Will consult ID. PCCM consulted, will follow recs. Hypotensive this AM, ordered bolus and fluids at 150 cc/hr. May require pressor support if bp does not improve. 11/05/2021: GBS on bcx +, currently on rocephin IV. Currently on bipap due to respiratory distress overnight. Worsening BL opacities on CXR. May be volume overload vs pneumonia. Unfortunately bp too low for lasix at this point. WIll continue levophed and bipap. Once able to tolerate, may do trial of albumin/lasi x. Call attempt made to Niraj, no response. Will try again tomorrow to update. 11/06/2021: Decompensated overnight requiring intubation. CXR shows worsening interstitial infiltrates. Currenlty on dopamine, levophed, vasopressin. PICC line ordered. Advised RN to place gamble for I/O monitoring. Would benefit from diuresis but very volume overloaded. Prognosis guarded 11/08: Off sedation this am, remains unresponsive only grimace to pain. Hold all sedatives agents for now, patient is off pressors this am. Hypernatremia from today's lab- D5W X1bag, and low K repleted, repeat lab in the am. Severe constipation also noted from KUB, BR added. 11/09: Sudden SPO2 drop in the 60s this am. Patient was manually bagged and deep suctioned. Patient is currently stable on the vent, repeat CXR with no significant change. D/w CCM Mucomyst and brochodilator added. Patient mentation is unchanged, continue to hold off on sedative agents. Neurology consulted. 11/10: Acute DVT noted on bilateral lower extremity Doppler ultrasound therefore she was started on Lovenox treatment dose. Failed SBT. Hypernatremia and hyperchloremia noted, free water flush adjusted. 11/11: Patient noted to be febrile with increasing of the cytosis, UA/BC sent and CXR ordered. ID escalated antibiotics to cefepime. CXR demonstrated mucous plug, bedside bronchoscopy was performed and O ETT was changed over bougie from 6 cm to 7.5. Patient was noted to have a pneumothorax postprocedure and chest tube was placed. Family updated by [facility]. Free water flush increased and will add Jaswant supplementation. 11/12: Patient not noted to follow commands, hypernatremia worsen/persist, increasing free water flush, potassium and magnesium and phosphorus repleted. Hemoglobin noted to be 7.1/24.5 from 7.03/12 yesterday. We will continue to trend and monitor. Vent changes per [facility]. Repeat CXR showed no residual pneumo thorax. Consider waterseal tomorrow. Given persistent leukocytosis antibiotics escalated to cefepime per ID. 11/13: Remains on cefepime and vancomycin, vent changes per [facility]. Anemia noted and given 1 unit PRBC. And beta-charleen held in setting of Levophed drip infusing. Remains on fentanyl drip. 11/14: Patient put on CPAP trial by [facility], will continue chest tube until after extubation. Will rest on assist control. CT brain was cancelled by [employer] and reordered. 11/15: Patient removed chest tube overnight. Will obtain cxr. remains on low dose levo. CTH completed with no acute findings. RT to place on CPAP. 11/16: Hypernatremia/hyperchloremia noted on the increase of day water flushes. Anemia noted and ordered PRBC. asked RT to place on cpap but not done yet 11/17: Patient remains on the vent, awake and following commands. H&H stable s/p 2units PRBCs. GI on consult, no intervention at this time. Will continue protonix gtt and serial H&H Q6hrs. Keep patient NPO for now, D5w added for hypernatremia and NPO status. Plan for IVC filter placement today by Vascular. 11/18: Patient is s/p IVC filter. H&H continue to trend down, hbg 6.1 this am, 1 unit of PRBCs ordered. Plan for possible EGD today by GI. Keep patient NPO, continue PPI drip and serial H&H Q6hrs. Electrolytes repleted, repeat lab in the am 11/19: S/p EGD- larger duodenal ulcer noted, see operative note. GI recommendat ions noted also noted. H&H stable this am. Keep patient on protonix gtt for now. Will keep patient NPO, continue IVF and serial H&H for now. Electrolytes repleted, repeat labs in the am 2/3: Very agitated and restless this am, fentanyl gtt resumed. Patient remains on protonix gtt, H&H remains stable. Will switch protonix gtt to IV BID, continue carafate and okay to resume meds at this time. Will F/u with GI to see if TF can be resumed. Gamble was reinserted overnight for retention. Electrolytes repleted, repeat in the am. Plan for possible PST today for possible extubation per CCM. 11/21: Patient is now on seroquel and patient's home buspar resumed. Patient more calm this morning, fentanyl gtt is off. H&H remains stable and patient is tolerating TF. Patient had a runs of Vtach/PVCs this am, BB added per Cardio. Continue daily PS and wean trial for possible extubation. 11/22: Back on fentanyl gtt overnight , RASS o to -1, following commands. Patient failed PST this am due to increased work of breathing and low SPO2, ABG pending. Patient is also with worsen pitting edema, lasix is still on hold. Will discuss with cardio and CCM to possibly resume lasix. 11/23: MARIA DEL CARMEN overnight. Patient failed PST again this am. Per CCM plan for possible trach and PEG, hold off on IV lasix for now. General surgery consulted and family is aware of possible Trach and PEG. 11/24: Trach/PEG pending this week, continue SBT/SAT as tolerated. No acute events reported overnight. 11/25: Patient was n.p.o. overnight and will remain n.p.o. tonight for trach/PEG tomorrow morning. She failed to support trial again. KUB obtained due to distended belly. 11/26: Patient scheduled for tracheostomy and PEG tube placement today, has been n.p.o. since midnight. No acute events reported overnight. [facility] ordered rosalinda thicone scheduled. 11/27: No acute events reported overnight, patient received trach/PEG yesterday. Has been on feedings since last night. Still awaiting LTAC placement. 11/28: Patient magnesium repleted, repeat a.m. labs, SBT 11/29: Patient complains of chest pain but ECG obtained which showed no acute findings, ordered troponin. Patient failed CPAP yesterday and was trialed again today. levophed was restarted but will aggressively wean 11/30: Patient failed SBT. Continue supportive care. Started gabapentin today 12/01: MARIA DEL CARMEN overnight. Continue daily PST. Case management to arrange possible placement 12/02: Report of dark stools overnight, patient is hemodynamically stable. H&H stable, patient is on PPI. Will continue to trend H&H. Continue daily PST as tolerated. Awaiting LTAC vs SNF placement. 12/03: Hypotensive overnight, requiring low dose pressors. S/p X3 days of gentle diurese. Will continue to monitor, wean off pressors as tolerated for MAP of 65. Patient Failed PST yesterday, case management to follow up with insurance for possible LTAC placement. Continue daily PST as tolerated. PT eval and treat ordered. 12/04: Increased agitation and anxiety overnight, remains on buspar and seroquel, trazadone added to promote rest. Patient is now working with PT, keep patient engage and awake during the day so she can rest at night. No BM for over 5 days, BR was adjusted. Patient did not tolerate PST again yesterday, continue daily PST as tolerated. Continue to titrate pressor for MAP above 65. Pending possible LTAC placement, case management to arrange. 12/05: Still not getting much rest overnight, will add melatonin for sleep. Continue to engage patient during the day and promote rest at night. TF was held due to concern for possible bleeding, H&H remains stable and stools normal this am. Resume TF and continue PPI and carafate. Remains on low dose levophed, titrate as tolerated. Continue daily PST. Possible LTAC placement, awaiting approval. 12/06: MARIA DEL CARMEN overnight. Patient rested overnight. Continue supportive measures. Daily PST as tolerated. Awaiting possible LTAC placement 12/07: MARIA DEL CARMEN overnight. Plan for Tpiece trial today. Continue current supportive measures. Possible LTAC placement 12/08: Patient placed on pressure support trial again today, started on Xanax, no acute events reported overnight. Awaiting insurance approval for LTAC. 12/09: Levophed discontinued, LTAC transfer denied, started on midodrine and Lasix, ultrasound chest pending, started on Xanax 0.[address] De León updated family at bedside today. Started on Dilaudid every 3 hours as needed. 12/10: Patient placed on CPAP trial this morning, no acute events reported overnight. Will order ultrasound-guided thoracentesis. 12/11: Patient had a thoracentesis today, will decrease Xanax dosage and continue midodrine and diuresing. Patient failed CPAP today. 12/12: Patient not tolerate CPAP trials today, no acute events reported overnight 12/13: No acute events overnight. continue PSV trials as tolerated. Daughter updated at bedside 12/14: Patient noted to be anemic today, worsened gastric occult. Patient seems to be oversedated therefore Xanax changed to as needed and fentanyl patch discontinued. We will continue to monitor hyponatremia. 12/15: MARIA DEL CARMEN overnight. s/p 1unit of PRBCs, H&H stable this am, no signs of any active bleeding. Continue daily PST as tolerated. Awaiting placement. 12/16: Hypertensive this am, Midodrine decreased. Continue daily PST. MARIA DLE CARMEN overnight 12/17: Patient Hgb dropped to 6 this am, no s/s of any active bleeding, VSS. Patient received 1unit of PRBC, will continue to trend H&H. Patient was pancultured and back on IV Abx due to persistent fevers yesterday. ID is also back on the case. Continue IV Abx per ID and f/u on cultures data for sensitivity. Patient also failed PST yesterday, continue daily PST as tolerated. Electrolytes repleted, repeat labs in the am. 12/18: Patient blood cultures is growing GPC 4 out 4 bottles. PICC line D/Sara, patient is already on IV Abx-cefepine and Vanc and ID is following. Patient remains hemodynamically stable. Daily PST as tolerated adn PRN Benzo for anxiety. 12/19: MARIA DEL CARMEN overnight. Culture data noted, continue IV Abx per ID. Orders placed for repeat Bculture. Gamble D/C overnight, patient is voiding. Check bladder scan as needed for retention. Patient failed PST again today. Continue daily PST as tolerated. 12/20: Fevers improved, Cultures +MRSA, on Vanco per ID. Repeat 2D Echo to r/o endocarditis. Patient continue to fail PST, PEEP increased to 8 today. Continue pulmonary hygiene and vent wean per CCM. Sodium tab added for hyponatremia. 12/21: Remains afebrile, repeat B.culture with NGTD, 2D echo noted with no obvious vegetation noted. Continue IV Vanc per ID. Hyponatremia improved. Tolerating PST this am, Continue daily PST. Assessment and Plan #MRSA Bacteremia #MRSA Pneumonia #Septic Shock POA-resolved - Presented with fevers, leukocytosis, and hypotension - COVID PCR negative - 11/04 Bcult with 12/19 group B strep bacteremia, [id number] Bculture NGTD - 11/04 2D Echo with no evidence of vegetation - New fevers on 12/16- Blood and sputum culture with MRSA - 12/16- UA is unremarkable - 12/18 repeat B.culture with NGTD - 12/19 Repeat 2D echo- with no obvious vegetation noted. EF 35-40% - ID on consult, appreciate recommendations - Continue IV vanc per ID - Trend CBC #Acute Hypoxic Respiratory Failure 11/19 #MRSA Pneumonia #Bilateral Pleural Effusion #Right Pneumothorax-resolved - COVID PCR negative - CXR shows Bilateral opacities, may be volume overloaded - CCM consulted, appreciate recommendations - Intubated on 11/06, ETT exchanged on 11/11 - 11/11 Bronchoscopy--Complicated by spontaneous pneumothorax - 11/11 S/p chest tube placement for right pneumothorax, removed by patient on 11/15 - 11/26 s/p Tracheostomy and PEGtube placement - 12/11 US thoracentesis due to moderate pleural effusion-1L removed - This am Vent Setting:CPAP-30%,8 PS-25 - On PO Lasix - Continue Nebs treatment - Continue daily PST as tolerated - VAP bundle addressed - Aspiration precaution HOB above 30 - PRN ABG and CXR per CCM - Continue SPO2 monitoring for SPO2 goal above 92% #CHF- EF 30-35% with PPM #Hypotension-resolved #Septic Kristian-resolved - SR on the monitor, HR 70-90s - 11/04 Echo-EF 30-35% - 12/19 Repeat EF 35-40% - Continue beta-charleen - Not on aspirin due to allergy - Statins resumed - Continue blood pressure monitor per protocol - Maintain MAP above 65 - Cardiology signed off #Acute Microcytic Anemia #Acute Blood Loss-resolved #Acute GI Bleed-resolved - s/p a total of 7units of PRBCs since admit - 11/18 EGD- Large cratered ulcer in the posterior duodenal bulb about 2 cm in diameter. Visible vessel present. Mild active oozing from the ulcer bed. A total of 3 injections were performed around the ulcer for a total of 2.5 cc of dilute epinephrine and hemostasis was obtained.--> See full report - GI signed off - Stool occult still positive - H&H stable - Continue PPI and Carafate - Continue to trend CBC - Transfuse for H&H less than 7 - Hold AC for now #Hyponatremia #Hypokalemia - On PO lasix - X1 dose of PO sodium tab given - Strict intake and output - Continue to monitor and replace electrolytes as needed - Trend BMP,mag, & phosp #Urinary Retention-resolved - Gamble reinserted on 11/19 for retention - Gamble D/sara, patient is voided - Bladder scan with no residual #Acute DVT in RLE - BLE doppler + Acute DVT in the right external iliac vein, common femoral vein, and superior aspect of femoral vein - Was on Therapeutic Lovenox- held to due GI Bleed - 11/17 s/p IVC filter placement by Vascular Surg #Agitation/Anxiety #Acute Encephalopathy-Resolved - Awake and following commands - Continue Buspar and seroquel - PRN Xanax for anxiety - CT head noted - Neurology consulted - PRN analgesia for pain management #Transaminitis/Shock Liver - Probably due to bacteria/spetic shock - Continue to Trend LFTs #Endo: h/o DM and hypothyroidism - Continue home Synthroid - Accu-Cheks every 6 - Avoid hypoglycemia The high probability of a clinically significant, sudden or life threatening deterioration of the [multi] system(s) required my full and direct attention, intervention and personal management. The aggregate critical care time was [60] minutes. This time is in addition to time spent performing reported procedures but includes the following: [x] Data Review and interpretation [x] Patient assessment and monitoring of vital signs [x] Documentation [x] Medication orders and management Disposition Plan: ICU Total Time Spent with Patient (Minutes): 60 History Interval history: Patient seen and examined at the bedside. Remains stable on the vent, AAO, following commands. Tolerating PST this am. MARIA DEL CARMEN overnight Hospitalist Physical - Constitutional Vitals: Temp Pulse Resp BP Pulse Ox 98.2 F 63 24 83/50 97 12/21/21 07:52 12/21/21 11:00 12/21/21 11:00 12/21/21 11:00 12/21/21 11:00 General appearance: Present: no acute distress, other (Trach and on the vent) - EENT Eyes: Present: PERRL ENT: hearing decreased - Neck Neck: Present: normal ROM - Respiratory Respiratory effort: normal Respiratory: bilateral: rhonchi - Cardiovascular Rhythm: regular Heart Sounds: Present: S1 & S2 - Extremities Extremities: no ischemia, pulses intact, pulses symmetrical Extremity abnormal: edema - Peripheral Assessment Generalized Edema Type: Non-pitting Edema Degree: 2+ Capillary Refill: < 3 seconds Skin Temperature: Warm Peripheral Pulses: within normal limits - Abdominal General gastrointestinal: soft, non-distended, normal bowel sounds - Integumentary Integumentary: Present: warm, dry - Psychiatric Psychiatric: appropriate mood/affect, cooperative - Neurologic Neurologic: moves all extremities - Allied Health Allied health notes reviewed: nursing, case management HEART Score - HEART Score Troponin: Troponin T 0.045 ng/mL (0.00-0.029) H 11/29/21 20:15 Results - Labs CBC & Chem 7: 12/21/21 04:21 12/21/21 04:21 Labs: Laboratory Last Values WBC 8.9 K/mm3 (4.5-11.0) 12/21/21 04:21 RBC 3.47 M/mm3 (3.65-5.03) L 12/21/21 04:21 Hgb 9.4 gm/dl (10.1-14.3) L 12/21/21 04:21 Hct 29.2 % (30.3-42.9) L 12/21/21 04:21 MCV 84 fl (79-97) 12/21/21 04:21 MCH 27 pg (28-32) L 12/21/21 04:21 MCHC 32 % (30-34) 12/21/21 04:21 RDW 18.1 % (13.2-15.2) H 12/21/21 04:21 Plt Count 229 K/mm3 (140-440) 12/21/21 04:21 Add Manual Diff Complete 12/20/21 04:54 Total Counted 100 12/20/21 04:54 Seg Neutrophils % Library Attendant 11/06/21 15:50 Seg Neuts % (Manual) 88.0 % (40.0-70.0) H 12/20/21 04:54 Band Neutrophils % 0 % 12/20/21 04:54 Lymphocytes % (Manual) 6.0 % (13.4-35.0) L 12/20/21 04:54 Reactive Lymphs % (Man) 0 % 12/20/21 04:54 Monocytes % (Manual) 5.0 % (0.0-7.3) 12/20/21 04:54 Eosinophils % (Manual) 1.0 % (0.0-4.3) 12/20/21 04:54 Basophils % (Manual) 0 % (0.0-1.8) 12/20/21 04:54 Metamyelocytes % 0 % 12/20/21 04:54 Myelocytes % 0 % 12/20/21 04:54 Promyelocytes % 0 % 12/20/21 04:54 Blast Cells % 0 % 12/20/21 04:54 Nucleated RBC % Not Reportable 12/20/21 04:54 Seg Neutrophils # Man 10.8 K/mm3 (1.8-7.7) H 12/20/21 04:54 Band Neutrophils # 0.0 K/mm3 12/20/21 04:54 Lymphocytes # (Manual) 0.7 K/mm3 (1.2-5.4) L 12/20/21 04:54 Abs React Lymphs (Man) 0.0 K/mm3 12/20/21 04:54 Monocytes # (Manual) 0.6 K/mm3 (0.0-0.8) 12/20/21 04:54 Eosinophils # (Manual) 0.1 K/mm3 (0.0-0.4) 12/20/21 04:54 Basophils # (Manual) 0.0 K/mm3 (0.0-0.1) 12/20/21 04:54 Metamyelocytes # 0.0 K/mm3 12/20/21 04:54 Myelocytes # 0.0 K/mm3 12/20/21 04:54 Promyelocytes # 0.0 K/mm3 12/20/21 04:54 Blast Cells # 0.0 K/mm3 12/20/21 04:54 WBC Morphology Not Reportable 12/20/21 04:54 Hypersegmented Neuts Not Reportable 12/20/21 04:54 Hyposegmented Neuts Not Reportable 12/20/21 04:54 Hypogranular Neuts Not Reportable 12/20/21 04:54 Smudge Cells Not Reportable 12/20/21 04:54 Toxic Granulation Not Reportable 12/20/21 04:54 Toxic Vacuolation Not Reportable 12/20/21 04:54 Dohle Bodies Not Reportable 12/20/21 04:54 Pelger-Huet Anomaly Not Reportable 12/20/21 04:54 Irina Rods Not Reportable 12/20/21 04:54 Platelet Estimate Consistent w auto 12/20/21 04:54 Clumped Platelets Not Reportable 12/20/21 04:54 Plt Clumps, EDTA Not Reportable 12/20/21 04:54 Large Platelets Not Reportable 12/20/21 04:54 Giant Platelets Not Reportable 12/20/21 04:54 Platelet Satelliting Not Reportable 12/20/21 04:54 Plt Morphology Comment Not Reportable 12/20/21 04:54 RBC Morphology Not Reportable 12/20/21 04:54 Dimorphic RBCs Not Reportable 12/20/21 04:54 Polychromasia Not Reportable 12/20/21 04:54 Hypochromasia Not Reportable 12/20/21 04:54 Poikilocytosis Not Reportable 12/20/21 04:54 Anisocytosis 1+ 12/20/21 04:54 Microcytosis Not Reportable 12/20/21 04:54 Macrocytosis Not Reportable 12/20/21 04:54 Spherocytes Not Reportable 12/20/21 04:54 Pappenheimer Bodies Not Reportable 12/20/21 04:54 Sickle Cells Not Reportable 12/20/21 04:54 Target Cells Not Reportable 12/20/21 04:54 Tear Drop Cells Not Reportable 12/20/21 04:54 Ovalocytes Not Reportable 12/20/21 04:54 Helmet Cells Not Reportable 12/20/21 04:54 [place] Bodies Not Reportable 12/20/21 04:54 [place] Rings Not Reportable 12/20/21 04:54 Malcom Cells Not Reportable 12/20/21 04:54 Bite Cells Not Reportable 12/20/21 04:54 Crenated Cell Not Reportable 12/20/21 04:54 Elliptocytes Not Reportable 12/20/21 04:54 Acanthocytes (Spur) Not Reportable 12/20/21 04:54 Rouleaux Not Reportable 12/20/21 04:54 Hemoglobin C Crystals Not Reportable 12/20/21 04:54 Schistocytes Not Reportable 12/20/21 04:54 Malaria parasites Not Reportable 12/20/21 04:54 Godfrey Bodies Not Reportable 12/20/21 04:54 Hem Pathologist Commnt No 12/20/21 04:54 PT 16.9 Sec. (12.2-14.9) H 11/26/21 05:00 INR 1.24 (0.87-1.13) H 11/26/21 05:00 APTT 29.2 Sec. (24.2-36.6) 11/26/21 05:00 D-Dimer 2655.00 ng/mlDDU (0-234) H 11/11/21 04:28 ABG pH 7.479 pH Units (7.350-7.450) H 12/16/21 20:52 ABG pCO2 37.5 mm Hg 12/16/21 20:52 ABG pO2 79.3 mm Hg (80.0-90.0) L 12/16/21 20:52 ABG HCO3 27.3 mmol/L (20.0-26.0) H 12/16/21 20:52 ABG O2 Saturation 97.0 % (95.0-99.0) 12/16/21 20:52 ABG O2 Content 12.3 (0.0-44) 12/16/21 20:52 ABG Base Excess 3.6 mmol/L (-2.0-3.0) H 12/16/21 20:52 ABG Hemoglobin 9.1 gm/dl (12.0-16.0) L 12/16/21 20:52 ABG Carboxyhemoglobin 1.6 % (0.0-5.0) 12/16/21 20:52 ABG Methemoglobin 0.5 % (0.0-1.5) 12/16/21 20:52 Oxyhemoglobin 94.9 % (95.0-99.0) L 12/16/21 20:52 FiO2 30 % 12/16/21 20:52 Sodium 134 mmol/L (137-145) L 12/21/21 04:21 Potassium 4.0 mmol/L (3.6-5.0) 12/21/21 04:21 Chloride 98.6 mmol/L (98-107) 12/21/21 04:21 Carbon Dioxide 23 mmol/L (22-30) 12/21/21 04:21 Anion Gap 16 mmol/L 12/21/21 04:21 BUN 35 mg/dL (7-17) H 12/21/21 04:21 Creatinine 0.5 mg/dL (0.6-1.2) L 12/21/21 04:21 Estimated GFR > 60 ml/min 12/21/21 04:21 BUN/Creatinine Ratio 70 % 12/21/21 04:21 Glucose 122 mg/dL (65-100) H 12/21/21 04:21 POC Glucose 121 mg/dL (70-105) H 12/21/21 11:29 Lactic Acid 3.70 mmol/L (0.7-2.0) H* 11/03/21 22:32 Calcium 8.2 mg/dL (8.4-10.2) L 12/21/21 04:21 Phosphorus 3.40 mg/dL (2.5-4.5) 12/21/21 04:21 Magnesium 1.70 mg/dL (1.7-2.3) 12/21/21 04:21 Ferritin 52.6 ng/mL (10.0-200.0) 11/05/21 06:11 Total Bilirubin 0.50 mg/dL (0.1-1.2) 11/17/21 05:56 Direct Bilirubin < 0.2 mg/dL (0-0.2) 11/11/21 04:28 Indirect Bilirubin 0.1 mg/dL 11/11/21 04:28 AST 36 units/L (5-40) 11/17/21 05:56 ALT 47 units/L (7-56) 11/17/21 05:56 Alkaline Phosphatase 107 units/L (35-129) 11/17/21 05:56 Ammonia 42.0 umol/L (25-60) 11/10/21 14:08 Lactate Dehydrogenase 187 units/L (91-180) H 11/05/21 06:11 Troponin T 0.045 ng/mL (0.00-0.029) H 11/29/21 20:15 C-Reactive Protein 22.20 mg/dL (0.00-1.30) H 11/05/21 06:11 NT-Pro-B Natriuret Pep 7895 pg/mL (0-900) H 11/03/21 22:32 Total Protein 5.1 g/dL (6.3-8.2) L 11/17/21 05:56 Albumin 2.2 g/dL (3.9-5) L 11/17/21 05:56 Albumin/Globulin Ratio 0.8 % 11/17/21 05:56 Triglycerides 59 mg/dL (2-149) 11/29/21 20:15 Cholesterol 74 mg/dL (50-199) 11/29/21 20:15 LDL Cholesterol Direct 25 mg/dL (50-130) L 11/29/21 20:15 HDL Cholesterol 41 mg/dL (40-59) 11/29/21 20:15 Cholesterol/HDL Ratio 1.80 % 11/29/21 20:15 Vitamin B12 1823 pg/mL (211-911) H 11/10/21 14:08 TSH 1.510 mlU/mL (0.270-4.200) 11/10/21 14:08 Urine Color Yellow (Yellow) 11/11/21 09:00 Urine Turbidity Slightly-cloudy (Clear) 11/11/21 09:00 Urine pH 5.0 (5.0-7.0) 11/11/21 09:00 Ur Specific [place] 1.009 (1.003-1.030) 11/11/21 09:00 Urine Protein <15 mg/dl mg/dL (Negative) 11/11/21 09:00 Urine Glucose (UA) Neg mg/dL (Negative) 11/11/21 09:00 Urine Ketones Neg mg/dL (Negative) 11/11/21 09:00 Urine Blood Mod (Negative) 11/11/21 09:00 Urine Nitrite Neg (Negative) 11/11/21 09:00 Urine Bilirubin Neg (Negative) 11/11/21 09:00 Urine Urobilinogen < 2.0 mg/dL (<2.0) 11/11/21 09:00 Ur Leukocyte Esterase Neg (Negative) 11/11/21 09:00 Urine WBC (Auto) < 1.0 /HPF (0.0-6.0) 11/11/21 09:00 Urine RBC (Auto) < 1.0 /HPF (0.0-6.0) 11/11/21 09:00 Vancomycin Trough 15.5 ug/mL (5.0-20.0) 12/19/21 13:48 Coronavirus (PCR) Negative (Negative) 11/10/21 08:30 Blood Type O POSITIVE 12/14/21 10:30 Antibody Screen Negative 12/14/21 10:30 Crossmatch See Detail 12/14/21 10:30 Microbiology: Microbiology 12/19/21 09:36 Peripheral/Venous Blood Culture - Preliminary NO GROWTH AFTER 48 HOURS 12/19/21 09:36 Peripheral/Venous Blood Culture - Preliminary NO GROWTH AFTER 48 HOURS Gamble/IV: Voiding Method Indwelling Catheter Active Medications - Current Medications Current Medications: Generic Name Dose Route Start Last Admin Trade Name Freq PRN Reason Stop Dose Admin Acetaminophen 650 mg 12/14/21 04:12 12/16/21 13:34 Acetaminophen 325 Mg/10.15 Ml Oral Liqd Unit Dose FEEDTUBE 650 mg Q6H PRN Administration Non Cardiac Pain or Temp>100.5 Hydrocodone Bitart/Acetaminophen 1 each 11/21/21 10:00 12/21/21 08:29 Hydrocodone/Acetaminophen 10-325mg Tab FEEDTUBE 1 each TID YOSSI Administration Alprazolam 0.25 mg 12/14/21 09:00 12/20/21 20:26 Alprazolam 0.25 Mg Tab PO 0.25 mg Q8H PRN Administration Agitation Lipase/Protease/Amylase 1 each 11/08/21 11:09 Lipase 10,500/Protease 25,000/Amylase 43,750 (Units) Dr Lema FEEDTUBE PRN PRN For Clogged Feeding Tube Buspirone HCl 7.5 mg 11/17/21 22:00 12/21/21 09:27 Buspirone 5 Mg Tab PO 7.5 mg BID YOSSI Administration Dextrose 0 ml 11/10/21 10:52 11/21/21 16:27 Dextrose 10% *Hypoglycemia IV 50 ml PRN PRN Administration Hypoglycemia Docusate Sodium 100 mg 12/04/21 11:00 12/21/21 10:18 Docusate Sodium 100 Mg/10 Ml Oral Liqd PO Not Given BID [facility] Furosemide 20 mg 12/09/21 10:00 12/21/21 09:28 Furosemide 20 Mg Tab PO 20 mg QDAY YOSSI Administration Gabapentin 100 mg 12/01/21 10:00 12/21/21 09:28 Gabapentin 100 Mg Cap PO 100 mg QDAY YOSSI Administration Hydromorphone HCl 0.5 mg 12/08/21 20:06 12/20/21 03:35 Hydromorphone 1 Mg/1 Ml Inj IV 0.5 mg Q3H PRN Administration Pain, Moderate (4-6) Hydrophilic Ointment 1 applic 11/06/21 04:02 Lip Therapy Vaseline TP Q2HR PRN Dry Lips Vancomycin HCl 1 gm in 250 mls @ 166.667 mls/hr 12/16/21 14:00 12/20/21 13:36 Vancomycin/Ns 1 Gm/250 Ml IV 166.66 mls/hr Q24H YOSSI Administration Protocol Lansoprazole 30 mg 11/24/21 22:00 12/21/21 10:19 Lansoprazole 30 Mg Solutab FEEDTUBE 30 mg BID YOSSI Administration Levothyroxine Sodium 125 mcg 11/05/21 07:00 12/21/21 05:45 Levothyroxine 125 Mcg Tab PO 125 mcg DAILY@0600 YOSSI Administration Melatonin 5 mg 12/05/21 22:00 12/20/21 22:29 Melatonin 5 Mg Tab PO 5 mg QHS YOSSI Administration Metoprolol Tartrate 6.25 mg 12/08/21 22:52 12/21/21 09:27 Metoprolol Tartrate 25 Mg Tab PO 6.25 mg BID YOSSI Administration Midodrine 5 mg 12/16/21 20:00 12/21/21 08:29 Midodrine 5 Mg Tab PO 5 mg [phone] [facility] Administration Multi-Ingred Cream/Lotion/Oil/Oint 1 applic 11/06/21 04:02 Mineral Oil/Petrolatum, White Ophth Oint 3.5 Gm OU Q4HR PRN Dry Eye(s) Nitroglycerin 0.4 mg 11/30/21 11:36 Nitroglycerin 0.4 Mg Tab Subl SL .Q5MIN PRN Chest Pain Ondansetron HCl 4 mg 12/05/21 10:00 12/20/21 12:43 Ondansetron 4 Mg/2 Ml Inj IV 4 mg Q8H PRN Administration Nausea And Vomiting Polyethylene Glycol 17 gm 12/02/21 10:00 12/21/21 10:18 Polyethylene Glycol 3350 17 Gm Powder PO Not Given QDAY YOSSI Pravastatin Sodium 20 mg 11/18/21 22:00 12/20/21 22:29 Pravastatin 20 Mg Tab PO 20 mg QHS YOSSI Administration Quetiapine Fumarate 50 mg 12/01/21 22:00 12/20/21 22:29 Quetiapine 25 Mg Tab PO 50 mg QHS YOSSI Administration Simple Syrup 15 ml 11/08/21 11:09 Simple Syrup 15 Ml FEEDTUBE PRN PRN Hypoglycemia Simple Syrup 30 ml 11/08/21 11:09 Simple Syrup 15 Ml FEEDTUBE PRN PRN Hypoglycemia Sodium Bicarbonate 325 mg 11/08/21 11:09 Sodium Bicarbonate 325 Mg Tab FEEDTUBE PRN PRN For Clogged Feeding Tube Sodium Chloride 10 ml 11/04/21 10:00 12/21/21 10:19 Sodium Chloride 0.9% 10 Ml Flush Syringe IV 10 ml BID YOSSI Administration Sodium Chloride 10 ml 11/04/21 02:03 Sodium Chloride 0.9% 10 Ml Flush Syringe IV PRN PRN LINE FLUSH Sucralfate 1 gm 11/18/21 16:30 12/21/21 11:45 Sucralfate 1 Gm/10 Ml Oral Liqd PO 1 gm ACHS YOSSI Administration Trazodone HCl 50 mg 12/04/21 22:00 12/20/21 22:28 Trazodone 50 Mg Tab PO 50 mg QHS YOSSI Administration Nutrition/Malnutrition Assess - Dietary Evaluation Nutrition/Malnutrition Findings: Nutrition Notes Start: 11/04/21 17:16 Freq: Status: Active Protocol: Document 12/15/21 15:12 ISABELL (Rec: 12/15/21 15:41 ISABELL [id number]) Nutrition Notes Initial or Follow up Reassessment Current Diagnosis Diabetes,Sepsis,Hypertension, Heart Failure,Respiratory Failure Other Pertinent Diagnosis Bilateral Pneumonia, L-Pleural Effusion, Pulmonary HTN, HFrEF, GI Bleed. Current Diet TF-Vital AF 1.2 @ 40 ml/hr ( since 11/30) Labs/Tests 12/15: Na 134, Cl 95.7, BUN 28 , Glu 129, Ca 8.2. Pertinent Medications 12/15: Levothyroxine, others nutritionally unremarkable. Height 5 ft Weight 62.4 kg [place] Body Weight (kg) 45.45 BMI 26.9 Weight change and time frame No body weight change reported in 1 month. Weight Status Appropriate Subjective/Other Information RD consult for routine TF tolerance. TF continues as prescribed, well tolerated, no gastric residues, according to RN notes. Pt continues on Mechanical Ventilation. Pt is having difficulties for discharge, due to LTAC refusing transfer at the time. Percent of energy/protein needs met: Prescribed Vital AF 1.2 Tamir @ 40 ml/hr provides for energy/ protein needs (1,150 Kcal/72 g ) during LOS, 95% Kcal; 96% AA . Burn Absent Trauma Absent GI Symptoms Other Difficulty In Swallowing,Chewing Skin Integrity/Comment Lower Extremities Pressure Ulcer. Current % PO Other Minimum of two criteria No #1 Nutrition Diagnosis Inadequate oral intake Diagnosis Progress(for reassessment Continues documentation) Is patient on ventilator? Yes Is Patient Ambulatory and/or Out of Bed No REE-([facility]-confined to bed) 1207.824 Calculation Used for Recommendations [facility] Additional Notes Protein: 1.2-2 g/Kg; 75-125 g/ day. Fluids: 1 ml/Kcal, or as per MD. Nutrition Intervention Nutrition Support: Continue Vital AF 1.2 Tamir @ 40 ml/hr. Flush: 65 ml water Q 4 hr, or as per MD. Kcal 1,150 Protein (gm) 72 Carbohydrates (gm) 106 Fat (gm) 52 Fluid (mL) 779 Fiber (gm) 5 % RDI: 95% Kcal; 96% AA. Goal #1 Provide at least 75% of energy /protein needs through Enteral Feeding during LOS. Goal #2 Maintain body weight within +/ -3% of admission body weight during LOS. Follow-Up By: 12/22/21 Additional Comments Continue monitoring TF tolerance and BM. <LEAH ALFONSO - Last Filed: 12/22/21 07:48> Assessment and Plan Assessment and plan: I saw and evaluated the patient. I agree with the findings and the plan of care as documented in the Nurse Practitioner's~note, with the following corrections and additions. Hospitalist Physical - Constitutional Vitals: Temp Pulse Resp BP Pulse Ox 97.6 F 80 21 88/60 97 12/22/21 00:00 12/22/21 06:00 12/22/21 06:00 12/22/21 06:00 12/22/21 06:00 HEART Score - HEART Score Troponin: Troponin T 0.045 ng/mL (0.00-0.029) H 11/29/21 20:15 Results - Labs CBC & Chem 7: 12/22/21 04:58 12/22/21 04:58 Labs: Laboratory Last Values WBC 10.8 K/mm3 (4.5-11.0) 12/22/21 04:58 RBC 3.80 M/mm3 (3.65-5.03) 12/22/21 04:58 Hgb 10.8 gm/dl (10.1-14.3) 12/22/21 04:58 Hct 32.2 % (30.3-42.9) 12/22/21 04:58 MCV 85 fl (79-97) 12/22/21 04:58 MCH 29 pg (28-32) 12/22/21 04:58 MCHC 34 % (30-34) 12/22/21 04:58 RDW 18.5 % (13.2-15.2) H 12/22/21 04:58 Plt Count 216 K/mm3 (140-440) 12/22/21 04:58 Add Manual Diff Complete 12/20/21 04:54 Total Counted 100 12/20/21 04:54 Seg Neutrophils % Library Attendant 11/06/21 15:50 Seg Neuts % (Manual) 88.0 % (40.0-70.0) H 12/20/21 04:54 Band Neutrophils % 0 % 12/20/21 04:54 Lymphocytes % (Manual) 6.0 % (13.4-35.0) L 12/20/21 04:54 Reactive Lymphs % (Man) 0 % 12/20/21 04:54 Monocytes % (Manual) 5.0 % (0.0-7.3) 12/20/21 04:54 Eosinophils % (Manual) 1.0 % (0.0-4.3) 12/20/21 04:54 Basophils % (Manual) 0 % (0.0-1.8) 12/20/21 04:54 Metamyelocytes % 0 % 12/20/21 04:54 Myelocytes % 0 % 12/20/21 04:54 Promyelocytes % 0 % 12/20/21 04:54 Blast Cells % 0 % 12/20/21 04:54 Nucleated RBC % Not Reportable 12/20/21 04:54 Seg Neutrophils # Man 10.8 K/mm3 (1.8-7.7) H 12/20/21 04:54 Band Neutrophils # 0.0 K/mm3 12/20/21 04:54 Lymphocytes # (Manual) 0.7 K/mm3 (1.2-5.4) L 12/20/21 04:54 Abs React Lymphs (Man) 0.0 K/mm3 12/20/21 04:54 Monocytes # (Manual) 0.6 K/mm3 (0.0-0.8) 12/20/21 04:54 Eosinophils # (Manual) 0.1 K/mm3 (0.0-0.4) 12/20/21 04:54 Basophils # (Manual) 0.0 K/mm3 (0.0-0.1) 12/20/21 04:54 Metamyelocytes # 0.0 K/mm3 12/20/21 04:54 Myelocytes # 0.0 K/mm3 12/20/21 04:54 Promyelocytes # 0.0 K/mm3 12/20/21 04:54 Blast Cells # 0.0 K/mm3 12/20/21 04:54 WBC Morphology Not Reportable 12/20/21 04:54 Hypersegmented Neuts Not Reportable 12/20/21 04:54 Hyposegmented Neuts Not Reportable 12/20/21 04:54 Hypogranular Neuts Not Reportable 12/20/21 04:54 Smudge Cells Not Reportable 12/20/21 04:54 Toxic Granulation Not Reportable 12/20/21 04:54 Toxic Vacuolation Not Reportable 12/20/21 04:54 Dohle Bodies Not Reportable 12/20/21 04:54 Pelger-Huet Anomaly Not Reportable 12/20/21 04:54 Irina Rods Not Reportable 12/20/21 04:54 Platelet Estimate Consistent w auto 12/20/21 04:54 Clumped Platelets Not Reportable 12/20/21 04:54 Plt Clumps, EDTA Not Reportable 12/20/21 04:54 Large Platelets Not Reportable 12/20/21 04:54 Giant Platelets Not Reportable 12/20/21 04:54 Platelet Satelliting Not Reportable 12/20/21 04:54 Plt Morphology Comment Not Reportable 12/20/21 04:54 RBC Morphology Not Reportable 12/20/21 04:54 Dimorphic RBCs Not Reportable 12/20/21 04:54 Polychromasia Not Reportable 12/20/21 04:54 Hypochromasia Not Reportable 12/20/21 04:54 Poikilocytosis Not Reportable 12/20/21 04:54 Anisocytosis 1+ 12/20/21 04:54 Microcytosis Not Reportable 12/20/21 04:54 Macrocytosis Not Reportable 12/20/21 04:54 Spherocytes Not Reportable 12/20/21 04:54 Pappenheimer Bodies Not Reportable 12/20/21 04:54 Sickle Cells Not Reportable 12/20/21 04:54 Target Cells Not Reportable 12/20/21 04:54 Tear Drop Cells Not Reportable 12/20/21 04:54 Ovalocytes Not Reportable 12/20/21 04:54 Helmet Cells Not Reportable 12/20/21 04:54 O[place]nell-[place] Bodies Not Reportable 12/20/21 04:54 [place] Rings Not Reportable 12/20/21 04:54 Malcom Cells Not Reportable 12/20/21 04:54 Bite Cells Not Reportable 12/20/21 04:54 Crenated Cell Not Reportable 12/20/21 04:54 Elliptocytes Not Reportable 12/20/21 04:54 Acanthocytes (Spur) Not Reportable 12/20/21 04:54 Rouleaux Not Reportable 12/20/21 04:54 Hemoglobin C Crystals Not Reportable 12/20/21 04:54 Schistocytes Not Reportable 12/20/21 04:54 Malaria parasites Not Reportable 12/20/21 04:54 Godfrey Bodies Not Reportable 12/20/21 04:54 Hem Pathologist Commnt No 12/20/21 04:54 PT 16.9 Sec. (12.2-14.9) H 11/26/21 05:00 INR 1.24 (0.87-1.13) H 11/26/21 05:00 APTT 29.2 Sec. (24.2-36.6) 11/26/21 05:00 D-Dimer 2655.00 ng/mlDDU (0-234) H 11/11/21 04:28 ABG pH 7.479 pH Units (7.350-7.450) H 12/16/21 20:52 ABG pCO2 37.5 mm Hg 12/16/21 20:52 ABG pO2 79.3 mm Hg (80.0-90.0) L 12/16/21 20:52 ABG HCO3 27.3 mmol/L (20.0-26.0) H 12/16/21 20:52 ABG O2 Saturation 97.0 % (95.0-99.0) 12/16/21 20:52 ABG O2 Content 12.3 (0.0-44) 12/16/21 20:52 ABG Base Excess 3.6 mmol/L (-2.0-3.0) H 12/16/21 20:52 ABG Hemoglobin 9.1 gm/dl (12.0-16.0) L 12/16/21 20:52 ABG Carboxyhemoglobin 1.6 % (0.0-5.0) 12/16/21 20:52 ABG Methemoglobin 0.5 % (0.0-1.5) 12/16/21 20:52 Oxyhemoglobin 94.9 % (95.0-99.0) L 12/16/21 20:52 FiO2 30 % 12/16/21 20:52 Sodium 130 mmol/L (137-145) L 12/22/21 04:58 Potassium 4.2 mmol/L (3.6-5.0) 12/22/21 04:58 Chloride 97.8 mmol/L (98-107) L 12/22/21 04:58 Carbon Dioxide 22 mmol/L (22-30) 12/22/21 04:58 Anion Gap 14 mmol/L 12/22/21 04:58 BUN 31 mg/dL (7-17) H 12/22/21 04:58 Creatinine 0.5 mg/dL (0.6-1.2) L 12/22/21 04:58 Estimated GFR > 60 ml/min 12/22/21 04:58 BUN/Creatinine Ratio 62 % 12/22/21 04:58 Glucose 122 mg/dL (65-100) H 12/22/21 04:58 POC Glucose 97 mg/dL (70-105) 12/22/21 00:18 Lactic Acid 3.70 mmol/L (0.7-2.0) H* 11/03/21 22:32 Calcium 7.9 mg/dL (8.4-10.2) L 12/22/21 04:58 Phosphorus 3.40 mg/dL (2.5-4.5) 12/21/21 04:21 Magnesium 1.70 mg/dL (1.7-2.3) 12/21/21 04:21 Ferritin 52.6 ng/mL (10.0-200.0) 11/05/21 06:11 Total Bilirubin 0.50 mg/dL (0.1-1.2) 11/17/21 05:56 Direct Bilirubin < 0.2 mg/dL (0-0.2) 11/11/21 04:28 Indirect Bilirubin 0.1 mg/dL 11/11/21 04:28 AST 36 units/L (5-40) 11/17/21 05:56 ALT 47 units/L (7-56) 11/17/21 05:56 Alkaline Phosphatase 107 units/L (35-129) 11/17/21 05:56 Ammonia 42.0 umol/L (25-60) 11/10/21 14:08 Lactate Dehydrogenase 187 units/L (91-180) H 11/05/21 06:11 Troponin T 0.045 ng/mL (0.00-0.029) H 11/29/21 20:15 C-Reactive Protein 22.20 mg/dL (0.00-1.30) H 11/05/21 06:11 NT-Pro-B Natriuret Pep 7895 pg/mL (0-900) H 11/03/21 22:32 Total Protein 5.1 g/dL (6.3-8.2) L 11/17/21 05:56 Albumin 2.2 g/dL (3.9-5) L 11/17/21 05:56 Albumin/Globulin Ratio 0.8 % 11/17/21 05:56 Triglycerides 59 mg/dL (2-149) 11/29/21 20:15 Cholesterol 74 mg/dL (50-199) 11/29/21 20:15 LDL Cholesterol Direct 25 mg/dL (50-130) L 11/29/21 20:15 HDL Cholesterol 41 mg/dL (40-59) 11/29/21 20:15 Cholesterol/HDL Ratio 1.80 % 11/29/21 20:15 Vitamin B12 1823 pg/mL (211-911) H 11/10/21 14:08 TSH 1.510 mlU/mL (0.270-4.200) 11/10/21 14:08 Urine Color Yellow (Yellow) 11/11/21 09:00 Urine Turbidity Slightly-cloudy (Clear) 11/11/21 09:00 Urine pH 5.0 (5.0-7.0) 11/11/21 09:00 Ur Specific [place] 1.009 (1.003-1.030) 11/11/21 09:00 Urine Protein <15 mg/dl mg/dL (Negative) 11/11/21 09:00 Urine Glucose (UA) Neg mg/dL (Negative) 11/11/21 09:00 Urine Ketones Neg mg/dL (Negative) 11/11/21 09:00 Urine Blood Mod (Negative) 11/11/21 09:00 Urine Nitrite Neg (Negative) 11/11/21 09:00 Urine Bilirubin Neg (Negative) 11/11/21 09:00 Urine Urobilinogen < 2.0 mg/dL (<2.0) 11/11/21 09:00 Ur Leukocyte Esterase Neg (Negative) 11/11/21 09:00 Urine WBC (Auto) < 1.0 /HPF (0.0-6.0) 11/11/21 09:00 Urine RBC (Auto) < 1.0 /HPF (0.0-6.0) 11/11/21 09:00 Vancomycin Trough 15.5 ug/mL (5.0-20.0) 12/19/21 13:48 Coronavirus (PCR) Negative (Negative) 11/10/21 08:30 Blood Type O POSITIVE 12/14/21 10:30 Antibody Screen Negative 12/14/21 10:30 Crossmatch See Detail 12/14/21 10:30 Microbiology: Microbiology 12/19/21 09:36 Peripheral/Venous Blood Culture - Preliminary NO GROWTH AFTER 48 HOURS 12/19/21 09:36 Peripheral/Venous Blood Culture - Preliminary NO GROWTH AFTER 48 HOURS Gamble/IV: Voiding Method Indwelling Catheter Active Medications - Current Medications Current Medications: Generic Name Dose Route Start Last Admin Trade Name Freq PRN Reason Stop Dose Admin Acetaminophen 650 mg 12/14/21 04:12 12/16/21 13:34 Acetaminophen 325 Mg/10.15 Ml Oral Liqd Unit Dose FEEDTUBE 650 mg Q6H PRN Administration Non Cardiac Pain or Temp>100.5 Hydrocodone Bitart/Acetaminophen 1 each 11/21/21 10:00 12/21/21 19:02 Hydrocodone/Acetaminophen 10-325mg Tab FEEDTUBE 1 each TID YOSSI Administration Alprazolam 0.25 mg 12/14/21 09:00 12/21/21 19:00 Alprazolam 0.25 Mg Tab PO 0.25 mg Q8H PRN Administration Agitation Lipase/Protease/Amylase 1 each 11/08/21 11:09 Lipase 10,500/Protease 25,000/Amylase 43,750 (Units) Dr Cap FEEDTUBE PRN PRN For Clogged Feeding Tube Buspirone HCl 7.5 mg 11/17/21 22:00 12/21/21 22:17 Buspirone 5 Mg Tab PO 7.5 mg BID YOSSI Administration Dextrose 0 ml 11/10/21 10:52 11/21/21 16:27 Dextrose 10% *Hypoglycemia IV 50 ml PRN PRN Administration Hypoglycemia Docusate Sodium 100 mg 12/04/21 11:00 12/21/21 22:17 Docusate Sodium 100 Mg/10 Ml Oral Liqd PO Not Given BID YOSSI Furosemide 20 mg 12/09/21 10:00 12/21/21 09:28 Furosemide 20 Mg Tab PO 20 mg QDAY YOSSI Administration Gabapentin 100 mg 12/01/21 10:00 12/21/21 09:28 Gabapentin 100 Mg Cap PO 100 mg QDAY YOSSI Administration Hydromorphone HCl 0.5 mg 12/08/21 20:06 12/20/21 03:35 Hydromorphone 1 Mg/1 Ml Inj IV 0.5 mg Q3H PRN Administration Pain, Moderate (4-6) Hydrophilic Ointment 1 applic 11/06/21 04:02 Lip Therapy Vaseline TP Q2HR PRN Dry Lips Vancomycin HCl 1 gm in 250 mls @ 166.667 mls/hr 12/16/21 14:00 12/21/21 14:08 Vancomycin/Ns 1 Gm/250 Ml IV 166.66 mls/hr Q24H YOSSI Administration Protocol Lansoprazole 30 mg 11/24/21 22:00 12/21/21 22:18 Lansoprazole 30 Mg Solutab FEEDTUBE 30 mg BID YOSSI Administration Levothyroxine Sodium 125 mcg 11/05/21 07:00 12/22/21 05:14 Levothyroxine 125 Mcg Tab PO 125 mcg DAILY@0600 [facility] Administration Melatonin 5 mg 12/05/21 22:00 12/21/21 22:18 Melatonin 5 Mg Tab PO 5 mg QHS [facility] Administration Metoprolol Tartrate 6.25 mg 12/08/21 22:52 12/21/21 22:18 Metoprolol Tartrate 25 Mg Tab PO Not Given BID [facility] Midodrine 5 mg 12/16/21 20:00 12/21/21 19:02 Midodrine 5 Mg Tab PO 5 mg [facility] Administration Multi-Ingred Cream/Lotion/Oil/Oint 1 applic 11/06/21 04:02 Mineral Oil/Petrolatum, White Ophth Oint 3.5 Gm OU Q4HR PRN Dry Eye(s) Nitroglycerin 0.4 mg 11/30/21 11:36 Nitroglycerin 0.4 Mg Tab Subl SL .Q5MIN PRN Chest Pain Ondansetron HCl 4 mg 12/05/21 10:00 12/20/21 12:43 Ondansetron 4 Mg/2 Ml Inj IV 4 mg Q8H PRN Administration Nausea And Vomiting Polyethylene Glycol 17 gm 12/02/21 10:00 12/21/21 10:18 Polyethylene Glycol 3350 17 Gm Powder PO Not Given QDAY [facility] Pravastatin Sodium 20 mg 11/18/21 22:00 12/21/21 22:18 Pravastatin 20 Mg Tab PO 20 mg QHS YOSSI Administration Quetiapine Fumarate 50 mg 12/01/21 22:00 12/21/21 22:18 Quetiapine 25 Mg Tab PO 50 mg QHS YOSSI Administration Simple Syrup 15 ml 11/08/21 11:09 Simple Syrup 15 Ml FEEDTUBE PRN PRN Hypoglycemia Simple Syrup 30 ml 11/08/21 11:09 Simple Syrup 15 Ml FEEDTUBE PRN PRN Hypoglycemia Sodium Bicarbonate 325 mg 11/08/21 11:09 Sodium Bicarbonate 325 Mg Tab FEEDTUBE PRN PRN For Clogged Feeding Tube Sodium Chloride 10 ml 11/04/21 10:00 12/21/21 22:18 Sodium Chloride 0.9% 10 Ml Flush Syringe IV 10 ml BID YOSSI Administration Sodium Chloride 10 ml 11/04/21 02:03 Sodium Chloride 0.9% 10 Ml Flush Syringe IV PRN PRN LINE FLUSH Sucralfate 1 gm 11/18/21 16:30 12/21/21 22:17 Sucralfate 1 Gm/10 Ml Oral Liqd PO 1 gm ACHS YOSSI Administration Trazodone HCl 50 mg 12/04/21 22:00 12/21/21 22:17 Trazodone 50 Mg Tab PO 50 mg QHS YOSSI Administration Nutrition/Malnutrition Assess - Dietary Evaluation Nutrition/Malnutrition Findings: Nutrition Notes Start: 11/04/21 17:16 Freq: Status: Active Protocol: Document 12/15/21 15:12 ISABELL (Rec: 12/15/21 15:41 ISABELL [id number]) Nutrition Notes Initial or Follow up Reassessment Current Diagnosis Diabetes,Sepsis,Hypertension, Heart Failure,Respiratory Failure Other Pertinent Diagnosis Bilateral Pneumonia, L-Pleural Effusion, Pulmonary HTN, HFrEF, GI Bleed. Current Diet TF-Vital AF 1.2 @ 40 ml/hr ( since 11/30) Labs/Tests 12/15: Na 134, Cl 95.7, BUN 28 , Glu 129, Ca 8.2. Pertinent Medications 12/15: Levothyroxine, others nutritionally unremarkable. Height 5 ft Weight 62.4 kg [place] Body Weight (kg) 45.45 BMI 26.9 Weight change and time frame No body weight change reported in 1 month. Weight Status Appropriate Subjective/Other Information RD consult for routine TF tolerance. TF continues as prescribed, well tolerated, no gastric residues, according to RN notes. Pt continues on Mechanical Ventilation. Pt is having difficulties for discharge, due to LTAC refusing transfer at the time. Percent of energy/protein needs met: Prescribed Vital AF 1.2 Tamir @ 40 ml/hr provides for energy/ protein needs (1,150 Kcal/72 g ) during LOS, 95% Kcal; 96% AA . Burn Absent Trauma Absent GI Symptoms Other Difficulty In Swallowing,Chewing Skin Integrity/Comment Lower Extremities Pressure Ulcer. Current % PO Other Minimum of two criteria No #1 Nutrition Diagnosis Inadequate oral intake Diagnosis Progress(for reassessment Continues documentation) Is patient on ventilator? Yes Is Patient Ambulatory and/or Out of Bed No REE-([facility]-confined to bed) 1207.824 Calculation Used for Recommendations [facility] Additional Notes Protein: 1.2-2 g/Kg; 75-125 g/ day. Fluids: 1 ml/Kcal, or as per MD. Nutrition Intervention Nutrition Support: Continue Vital AF 1.2 Tamir @ 40 ml/hr. Flush: 65 ml water Q 4 hr, or as per MD. Kcal 1,150 Protein (gm) 72 Carbohydrates (gm) 106 Fat (gm) 52 Fluid (mL) 779 Fiber (gm) 5 % RDI: 95% Kcal; 96% AA. Goal #1 Provide at least 75% of energy /protein needs through Enteral Feeding during LOS. Goal #2 Maintain body weight within +/ -3% of admission body weight during LOS. Follow-Up By: 12/22/21 Additional Comments Continue monitoring TF tolerance and BM.
[2021-12-21] MEDS: VANCOMYCIN/NS 1 GM/250 ML 1 GM/250 ML BAG IV SCH (14:08)
[2021-12-21] MEDS ORDERED: SODIUM CHLORIDE 0.9% 500 ML 500 ML ONE (18:16)
[2021-12-21] MEDS: ALPRAZolam 0.25 MG TAB PO PRN (19:00)
[2021-12-21] MEDS: traZODone 50 MG TAB PO SCH (22:17)
[2021-12-21] MEDS: PRAVASTATIN 20 MG TAB PO SCH (22:18)
[2021-12-21] MEDS: MELATONIN 5 MG TAB PO SCH (22:18)
[2021-12-21] MEDS: QUEtiapine 25 MG TAB PO SCH (22:18)
[2021-12-22] MEDS ORDERED: SODIUM CHLORIDE 0.9% 250ML 250 ML IV ONE (03:05)
[2021-12-22] MEDS ORDERED: SODIUM CHLORIDE 0.9% 1000 ML 1,000 ML ONE (03:07)
[2021-12-22] MEDS: LEVOTHYROXINE 125 MCG TAB PO SCH (05:14)
[2021-12-22 05:44] LABS: Blood Urea Nitrogen 31 mg/dL (7-17); Calcium 7.9 mg/dL (8.4-10.2); Hemolysis Index 44
[2021-12-22 05:45] LABS: BUN/Creatinine Ratio 62
[2021-12-22 05:50] LABS: Hematocrit 32.2 % (30.3-42.9); Hemoglobin 10.8 gm/dl (10.1-14.3); Mean Corpuscular HGB Conc 34 % (30-34); Mean Corpuscular Volume 85 fl (79-97); Red Cell Distribution Width 18.5 % (13.2-15.2)
[2021-12-22 05:53] LABS: Platelet Count 216 K/mm3 (140-440)
[2021-12-22] MEDS: GABAPENTIN 100 MG CAP PO SCH (09:01)
[2021-12-22] MEDS: ALPRAZolam 0.25 MG TAB PO PRN ×2 (09:01→23:55)
[2021-12-22] MEDS: DOCUSATE SODIUM 100 MG/10 ML ORAL LIQD PO SCH ×2 (09:01→21:13)
[2021-12-22] MEDS: busPIRone 5 MG TAB PO SCH ×2 (09:01→21:13)
[2021-12-22] MEDS: FUROSEMIDE 20 MG TAB PO SCH (09:01)
[2021-12-22] MEDS: HYDROcodone/ACETAMINOPHEN 10-325MG TAB FEEDTUBE SCH ×3 (09:02→20:26)
[2021-12-22] MEDS: METOPROLOL TARTRATE 25 MG TAB PO SCH ×2 (09:02→21:14)
[2021-12-22] MEDS: LANSOPRAZOLE 30 MG SOLUTAB FEEDTUBE SCH ×2 (09:03→21:15)
[2021-12-22] MEDS: MIDODRINE 5 MG TAB PO SCH ×3 (09:03→20:26)
[2021-12-22] MEDS: SUCRALFATE 1 GM/10 ML ORAL LIQD PO SCH ×4 (09:03→21:13)
[2021-12-22] MEDS: VANCOMYCIN/NS 1 GM/250 ML 1 GM/250 ML BAG IV SCH (13:46)
--- NOTE | 2021-12-22 14:27 | Progress Note ---
Assessment and Plan Cultures: SARS CoV2 PCR: negative 11/03/2021 blood culture: Group B streptococcus 11/04/2021 blood culture: no growth 11/11/2021 blood culture: No growth 12/16/2021 tracheal aspirate culture no growth so far 12/16/2021 blood culture no growth so far A/P: 81-year-old female with diabetes mellitus, hypertension, arthritis was admitted with shortness of breath. She was also having fever: #Acute fevers: Likely secondary to MRSA bacteremia and pneumonia #MRSA bacteremia: Likely secondary to pneumonia #Acute hypoxic respiratory failure: Secondary to above. Tracheostomy, on the vent. #Acute DVT: unable to anticoagulate Recs: -Continue vancomycin goal trough 10-20. Plan for 4 weeks -Follow up repeat blood cultures Will follow. Mahogany Montes MD [facility] ([facility]) O: [phone] F: [phone] Subjective Date of service: 12/22/21 Principal diagnosis: Septic shock; AHRF; Anemia; Pneumonia; pleural effusion; HFrEF; Pulm HTN Interval history: Afebrile, normal white count. Imaging personally reviewed: TTE: No vegetations noted. Objective - Exam Narrative Exam: Physical exam deferred to reduce risk of transmission of COVID-19. Please refer to primary team's note. - Constitutional Vitals: Vital Signs Temp Pulse Resp BP Pulse Ox 97 F L 94 H 21 84/48 95 12/22/21 12:00 12/22/21 13:30 12/22/21 13:30 12/22/21 13:30 12/22/21 13:30 Temperature -Last 24 Hours Temperature 97 F Temperature 97.5 F Temperature 97.6 F Temperature 97.8 F Temperature 98.0 F - Labs CBC & Chem 7: 12/22/21 04:58 12/22/21 04:58 Labs: Abnormal lab results 12/21/21 12/22/21 12/22/21 Range/Units 16:16 04:58 04:58 RDW 18.5 H (13.2-15.2) % Sodium 130 L (137-145) mmol/L Chloride 97.8 L (98-107) mmol/L BUN 31 H (7-17) mg/dL Creatinine 0.5 L (0.6-1.2) mg/dL Glucose 122 H (65-100) mg/dL POC Glucose 113 H (70-105) mg/dL Calcium 7.9 L (8.4-10.2) mg/dL
--- NOTE | 2021-12-22 17:33 | Progress Note ---
Assessment and Plan Gram positive Bacteremia Acute respiratory failure with hypoxia, now on MVS Acute microcytic anemia Bilateral pneumonia DVT Left pleural effusion Cardiomyopathy EF 30-35% Moderate pulmonary HTN RVSP 49e - increased Midodrine to 10 mg po tid - discontinued Lasix - repeat BC's NGTD X 72 hours - continue Vancomycin for MRSA - no new issues otherwise, continue care as below; - LTAC evaluation ongoing - continue daily SAT and SBT assessment as tolerated - prn Levophed for target MAP > 65 mmHg - continue to wean supplemental oxygen for target O2 sat's > 90% acutely - VAP bundle addressed - continue lung protective strategies - continue bronchodilators with routine trach care and pulmonary hygiene per RT - wean per pulmonary driven protocols otherwise - avoid nephrotoxins, renally dose all medications - continue accuchecks with glycemic control per SSI (While critically ill target blood glucose of 140-180 mg/dL; avoid hypoglycemia) - sedation prn for target RASS 0 to -1 - antibiotics per ID recommendations - continue to avoid benzodiazepine's, reduce the possibility of delirium - prn analgesia per CPOT score - Maintenance of sleep-wake cycle, avoid delirium - continue enteral nutritional support at goal rate as tolerated - G.I. & VTE prophylaxis - PT/OT/ROM exercises - continue mobility protocols for pressure ulcer prophylaxis - Monitor hemodynamics closely - continue other care per attending / other consultants - discharge planning ongoing concurrently COVID SPECIFIC INTERVENTIONS - COVID-19 PCR negative .... Re-evaluate in am & prn CONDITION: CRITICAL PROGNOSIS: GUARDED CODE STATUS: FULL CODE The high probability of a clinically significant, sudden or life-threatening deterioration of the [respiratory, cardiovascular & neurologic] system(s) required my full and direct attention, intervention and personal management. The aggregate critical care time was [35] minutes without overlap. Time includes spent on; [x] Data Review and interpretation [x] Patient assessment and monitoring of vital signs [x] Documentation [x] Medication orders and management Subjective Date of service: 12/22/21 Principal diagnosis: Septic shock; AHRF; Anemia; Pneumonia; pleural effusion; HFrEF; Pulm HTN Interval history: Severe Sepsis POA vs septic shock- 11/03/2021 blood culture: Patient is seen today for: Septic shock; Acute hypoxemic respiratory failure; Anemia; Bilateral pneumonia; Left pleural effusion; HFrEF 30-35%; Pulm HTN RVSP 49 Seen and examined at bedside; 24hour events reviewed; nursing and respiratory care staff consulted; no adverse overnight events reported to me; resting in bed; remains a difficult wean; remains on MVS; growing MRSA in blood ultimately; blood pressures running low today; denies N/V/F/C Objective Vital Signs - 12hr 12/22/21 12/22/21 12/22/21 05:46 06:00 06:16 Temperature Pulse Rate 86 80 85 Pulse Rate [ From Monitor] Respiratory 25 H 21 19 Rate Blood Pressure 102/66 88/60 88/60 O2 Sat by Pulse 99 97 98 Oximetry O2 Sat by Pulse Oximetry [ Assessment] 12/22/21 12/22/21 12/22/21 06:30 06:46 07:00 Temperature Pulse Rate 84 83 84 Pulse Rate [ From Monitor] Respiratory 14 17 21 Rate Blood Pressure 88/60 88/60 114/60 O2 Sat by Pulse 99 99 99 Oximetry O2 Sat by Pulse Oximetry [ Assessment] 12/22/21 12/22/21 12/22/21 07:16 07:30 07:46 Temperature Pulse Rate 75 72 71 Pulse Rate [ From Monitor] Respiratory 14 17 15 Rate Blood Pressure 114/60 114/60 114/60 O2 Sat by Pulse 99 98 100 Oximetry O2 Sat by Pulse Oximetry [ Assessment] 12/22/21 12/22/21 12/22/21 08:00 08:16 08:30 Temperature 97.5 F L Pulse Rate 80 70 80 Pulse Rate [ 60 From Monitor] Respiratory 16 14 21 Rate Blood Pressure 114/60 154/131 154/131 O2 Sat by Pulse 82 L 100 99 Oximetry O2 Sat by Pulse 100 Oximetry [ Assessment] 12/22/21 12/22/21 12/22/21 08:46 09:00 09:02 Temperature Pulse Rate 78 83 82 Pulse Rate [ From Monitor] Respiratory 21 22 Rate Blood Pressure 154/131 95/63 O2 Sat by Pulse 99 100 Oximetry O2 Sat by Pulse Oximetry [ Assessment] 12/22/21 12/22/21 12/22/21 09:10 09:16 09:30 Temperature Pulse Rate 82 67 82 Pulse Rate [ From Monitor] Respiratory 30 H 17 16 Rate Blood Pressure 95/63 95/63 95/63 O2 Sat by Pulse 97 97 Oximetry O2 Sat by Pulse Oximetry [ Assessment] 12/22/21 12/22/21 12/22/21 09:46 10:00 10:16 Temperature Pulse Rate 73 69 65 Pulse Rate [ From Monitor] Respiratory 30 H 27 H 23 Rate Blood Pressure 95/63 85/44 85/44 O2 Sat by Pulse 97 98 98 Oximetry O2 Sat by Pulse Oximetry [ Assessment] 12/22/21 12/22/21 12/22/21 10:30 10:46 11:00 Temperature Pulse Rate 64 60 62 Pulse Rate [ From Monitor] Respiratory 22 23 19 Rate Blood Pressure 85/44 85/44 72/43 O2 Sat by Pulse 98 98 97 Oximetry O2 Sat by Pulse Oximetry [ Assessment] 12/22/21 12/22/21 12/22/21 11:16 11:30 11:46 Temperature Pulse Rate 60 60 60 Pulse Rate [ From Monitor] Respiratory 22 23 22 Rate Blood Pressure 72/42 72/42 72/42 O2 Sat by Pulse 99 98 99 Oximetry O2 Sat by Pulse Oximetry [ Assessment] 12/22/21 12/22/21 12/22/21 11:57 12:00 12:16 Temperature 97 F L Pulse Rate 61 85 69 Pulse Rate [ 60 From Monitor] Respiratory 22 15 30 H Rate Blood Pressure 72/42 73/42 85/51 O2 Sat by Pulse 99 98 100 Oximetry O2 Sat by Pulse Oximetry [ Assessment] 12/22/21 12/22/21 12/22/21 12:30 12:46 13:00 Temperature Pulse Rate 65 69 66 Pulse Rate [ From Monitor] Respiratory 27 H 34 H 32 H Rate Blood Pressure 85/51 85/51 84/48 O2 Sat by Pulse 99 100 99 Oximetry O2 Sat by Pulse Oximetry [ Assessment] 12/22/21 12/22/21 12/22/21 13:16 13:30 13:45 Temperature Pulse Rate 83 94 H 97 H Pulse Rate [ From Monitor] Respiratory 16 21 27 H Rate Blood Pressure 84/48 84/48 130/86 O2 Sat by Pulse 95 95 91 Oximetry O2 Sat by Pulse Oximetry [ Assessment] 12/22/21 12/22/21 12/22/21 13:58 14:00 14:16 Temperature Pulse Rate 97 H 94 H 84 Pulse Rate [ From Monitor] Respiratory 12 19 Rate Blood Pressure 130/86 130/86 111/62 O2 Sat by Pulse 100 98 97 Oximetry O2 Sat by Pulse Oximetry [ Assessment] 12/22/21 12/22/21 12/22/21 14:30 14:46 15:00 Temperature Pulse Rate 79 77 75 Pulse Rate [ From Monitor] Respiratory 15 14 17 Rate Blood Pressure 111/62 111/62 73/50 O2 Sat by Pulse 98 98 98 Oximetry O2 Sat by Pulse Oximetry [ Assessment] 12/22/21 12/22/21 12/22/21 15:16 15:30 15:42 Temperature Pulse Rate 73 74 72 Pulse Rate [ From Monitor] Respiratory 14 19 Rate Blood Pressure 73/50 73/50 73/50 O2 Sat by Pulse 99 100 98 Oximetry O2 Sat by Pulse 98 Oximetry [ Assessment] 12/22/21 12/22/21 12/22/21 15:46 16:00 16:16 Temperature 98.1 F Pulse Rate 70 70 68 Pulse Rate [ 60 From Monitor] Respiratory 15 15 14 Rate Blood Pressure 73/50 77/50 77/50 O2 Sat by Pulse 100 98 98 Oximetry O2 Sat by Pulse Oximetry [ Assessment] 12/22/21 12/22/21 12/22/21 16:30 16:46 17:00 Temperature Pulse Rate 73 74 72 Pulse Rate [ From Monitor] Respiratory 14 15 14 Rate Blood Pressure 77/50 77/50 104/62 O2 Sat by Pulse 95 99 100 Oximetry O2 Sat by Pulse Oximetry [ Assessment] 12/22/21 17:16 Temperature Pulse Rate 69 Pulse Rate [ From Monitor] Respiratory 13 Rate Blood Pressure 104/62 O2 Sat by Pulse 97 Oximetry O2 Sat by Pulse Oximetry [ Assessment] Constitutional: no acute distress, alert, other (trach to MVS, frail elderly woman with mildly increased respiratory effort at rest) Eyes: non-icteric ENT: oropharynx moist, other (+ Midline tracheostomy with minimal secretions) Neck: supple, no lymphadenopathy, no JVD Effort: mildly labored Ascultation: Bilateral: diminished breath sounds, rhonchi Percussion: Bilateral: not dull Cardiovascular: regular rate and rhythm, other (S1,S2) Gastrointestinal: normoactive bowel sounds, soft, non-tender, non-distended (protuberant) Integumentary: normal Extremities: no cyanosis, pink and warm, pulses normal, edema (upper etremities) Neurologic: normal mental status, non-focal exam (grossly), pupils equal and round, motor strength normal and Psychiatric: mood appropriate CBC and BMP: 12/23/21 06:40 12/23/21 06:40 ABG, PT/INR, D-dimer: ABG ABG pH 7.479 pH Units (7.350-7.450) H 12/16/21 20:52 ABG pCO2 37.5 mm Hg 12/16/21 20:52 ABG pO2 79.3 mm Hg (80.0-90.0) L 12/16/21 20:52 ABG O2 Saturation 97.0 % (95.0-99.0) 12/16/21 20:52 PT/INR, D-dimer PT 16.9 Sec. (12.2-14.9) H 11/26/21 05:00 INR 1.24 (0.87-1.13) H 11/26/21 05:00 D-Dimer 2655.00 ng/mlDDU (0-234) H 11/11/21 04:28 Abnormal lab findings: Abnormal Labs 11/03/21 11/03/21 11/03/21 22:32 22:32 22:32 WBC 29.3 H RBC 2.93 L Hgb 6.1 L Hct 21.9 L MCV 75 L MCH 21 L MCHC 28 L RDW 19.7 H Plt Count Seg Neuts % (Manual) 97.0 H Lymphocytes % (Manual) 3.0 L Seg Neutrophils # Man 28.4 H Lymphocytes # (Manual) 0.9 L Monocytes # (Manual) PT 18.6 H INR 1.40 H D-Dimer ABG pH ABG pO2 ABG HCO3 ABG O2 Saturation ABG Base Excess ABG Hemoglobin Oxyhemoglobin Sodium Potassium Chloride Carbon Dioxide 20 L BUN 33 H Creatinine Glucose 119 H POC Glucose Lactic Acid Calcium 8.3 L Phosphorus Magnesium AST ALT Alkaline Phosphatase Lactate Dehydrogenase Troponin T 0.035 H C-Reactive Protein NT-Pro-B Natriuret Pep Total Protein Albumin LDL Cholesterol Direct 34 L Vitamin B12 Crossmatch 11/03/21 11/03/21 11/03/21 22:32 22:32 23:57 WBC RBC Hgb Hct MCV MCH MCHC RDW Plt Count Seg Neuts % (Manual) Lymphocytes % (Manual) Seg Neutrophils # Man Lymphocytes # (Manual) Monocytes # (Manual) PT INR D-Dimer ABG pH ABG pO2 ABG HCO3 ABG O2 Saturation ABG Base Excess ABG Hemoglobin Oxyhemoglobin Sodium Potassium Chloride Carbon Dioxide BUN Creatinine Glucose POC Glucose Lactic Acid 3.70 H* Calcium Phosphorus Magnesium AST ALT Alkaline Phosphatase 139 H Lactate Dehydrogenase Troponin T C-Reactive Protein NT-Pro-B Natriuret Pep 7895 H Total Protein Albumin 3.5 L LDL Cholesterol Direct Vitamin B12 Crossmatch See Detail 11/04/21 11/04/21 11/05/21 00:59 13:58 00:51 WBC 27.9 H RBC 3.28 L Hgb 7.3 L Hct 25.5 L MCV 78 L MCH 22 L MCHC 29 L RDW 19.1 H Plt Count Seg Neuts % (Manual) 96.0 H Lymphocytes % (Manual) 2.0 L Seg Neutrophils # Man 26.8 H Lymphocytes # (Manual) 0.6 L Monocytes # (Manual) PT INR D-Dimer ABG pH ABG pO2 ABG HCO3 ABG O2 Saturation ABG Base Excess ABG Hemoglobin Oxyhemoglobin Sodium Potassium Chloride Carbon Dioxide BUN Creatinine Glucose POC Glucose Lactic Acid Calcium Phosphorus Magnesium AST ALT Alkaline Phosphatase Lactate Dehydrogenase Troponin T 0.051 H D 0.032 H D C-Reactive Protein NT-Pro-B Natriuret Pep Total Protein Albumin LDL Cholesterol Direct Vitamin B12 Crossmatch 11/05/21 11/05/21 11/05/21 06:11 06:11 06:11 WBC 31.8 H RBC 3.57 L Hgb 8.0 L Hct 27.7 L MCV 78 L MCH 22 L MCHC 29 L RDW 19.2 H Plt Count Seg Neuts % (Manual) 91.0 H Lymphocytes % (Manual) 4.5 L Seg Neutrophils # Man 28.9 H Lymphocytes # (Manual) Monocytes # (Manual) 1.1 H PT INR D-Dimer 1494.53 H ABG pH ABG pO2 ABG HCO3 ABG O2 Saturation ABG Base Excess ABG Hemoglobin Oxyhemoglobin Sodium Potassium Chloride Carbon Dioxide 19 L BUN 42 H Creatinine Glucose 115 H POC Glucose Lactic Acid Calcium Phosphorus Magnesium AST 43 H ALT Alkaline Phosphatase Lactate Dehydrogenase 187 H Troponin T C-Reactive Protein 22.20 H NT-Pro-B Natriuret Pep Total Protein 6.0 L Albumin 3.2 L LDL Cholesterol Direct Vitamin B12 Crossmatch 11/05/21 11/05/21 11/06/21 06:11 12:15 00:30 WBC RBC Hgb Hct MCV MCH MCHC RDW Plt Count Seg Neuts % (Manual) Lymphocytes % (Manual) Seg Neutrophils # Man Lymphocytes # (Manual) Monocytes # (Manual) PT INR D-Dimer ABG pH ABG pO2 ABG HCO3 ABG O2 Saturation ABG Base Excess ABG Hemoglobin Oxyhemoglobin Sodium Potassium Chloride Carbon Dioxide BUN Creatinine Glucose POC Glucose 113 H 69 L Lactic Acid Calcium Phosphorus Magnesium AST ALT Alkaline Phosphatase Lactate Dehydrogenase Troponin T 0.033 H C-Reactive Protein NT-Pro-B Natriuret Pep Total Protein Albumin LDL Cholesterol Direct Vitamin B12 Crossmatch 11/06/21 11/06/21 11/06/21 05:50 15:50 15:50 WBC 25.5 H RBC 3.62 L Hgb 8.0 L Hct 27.5 L MCV 76 L MCH 22 L MCHC 29 L RDW 19.6 H Plt Count Seg Neuts % (Manual) 92.0 H Lymphocytes % (Manual) 5.0 L Seg Neutrophils # Man 23.5 H Lymphocytes # (Manual) Monocytes # (Manual) PT INR D-Dimer ABG pH 7.305 L ABG pO2 ABG HCO3 15.8 L ABG O2 Saturation ABG Base Excess -9.6 L ABG Hemoglobin 8.6 L Oxyhemoglobin 94.6 L Sodium Potassium Chloride 113.9 H Carbon Dioxide 17 L BUN 56 H Creatinine Glucose 114 H POC Glucose Lactic Acid Calcium 7.9 L Phosphorus Magnesium AST 1410 H ALT 934 H Alkaline Phosphatase 142 H Lactate Dehydrogenase Troponin T C-Reactive Protein NT-Pro-B Natriuret Pep Total Protein 5.0 L Albumin 2.6 L LDL Cholesterol Direct Vitamin B12 Crossmatch 11/07/21 11/07/21 11/07/21 03:30 04:50 08:07 WBC RBC Hgb Hct MCV MCH MCHC RDW Plt Count Seg Neuts % (Manual) Lymphocytes % (Manual) Seg Neutrophils # Man Lymphocytes # (Manual) Monocytes # (Manual) PT INR D-Dimer ABG pH ABG pO2 296.9 H ABG HCO3 18.1 L ABG O2 Saturation 99.5 H ABG Base Excess -5.9 L ABG Hemoglobin 7.6 L Oxyhemoglobin Sodium Potassium Chloride Carbon Dioxide BUN Creatinine Glucose POC Glucose 106 H 108 H Lactic Acid Calcium Phosphorus Magnesium AST ALT Alkaline Phosphatase Lactate Dehydrogenase Troponin T C-Reactive Protein NT-Pro-B Natriuret Pep Total Protein Albumin LDL Cholesterol Direct Vitamin B12 Crossmatch 01/11/08/21 11/08/21 03:10 18:05 23:43 WBC RBC Hgb Hct MCV MCH MCHC RDW Plt Count Seg Neuts % (Manual) Lymphocytes % (Manual) Seg Neutrophils # Man Lymphocytes # (Manual) Monocytes # (Manual) PT INR D-Dimer ABG pH ABG pO2 127.4 H ABG HCO3 ABG O2 Saturation ABG Base Excess -3.4 L ABG Hemoglobin 7.4 L Oxyhemoglobin Sodium Potassium Chloride Carbon Dioxide BUN Creatinine Glucose POC Glucose 113 H 141 H Lactic Acid Calcium Phosphorus Magnesium AST ALT Alkaline Phosphatase Lactate Dehydrogenase Troponin T C-Reactive Protein NT-Pro-B Natriuret Pep Total Protein Albumin LDL Cholesterol Direct Vitamin B12 Crossmatch 11/08/21 11/08/21 11/09/21 Unknown Unknown 02:00 WBC 14.5 H RBC 3.35 L Hgb 7.5 L 8.1 L Hct 25.4 L 27.6 L MCV 76 L 76 L MCH 23 L 22 L MCHC RDW 19.9 H 19.9 H Plt Count Seg Neuts % (Manual) Lymphocytes % (Manual) Seg Neutrophils # Man Lymphocytes # (Manual) Monocytes # (Manual) PT INR D-Dimer ABG pH ABG pO2 ABG HCO3 ABG O2 Saturation ABG Base Excess ABG Hemoglobin Oxyhemoglobin Sodium 154 H D Potassium 3.3 L Chloride 120.7 H Carbon Dioxide 20 L BUN 38 H Creatinine Glucose POC Glucose Lactic Acid Calcium 8.3 L Phosphorus Magnesium AST ALT Alkaline Phosphatase Lactate Dehydrogenase Troponin T C-Reactive Protein NT-Pro-B Natriuret Pep Total Protein Albumin LDL Cholesterol Direct Vitamin B12 Crossmatch 11/09/21 11/09/21 11/09/21 02:00 02:31 05:12 WBC RBC Hgb Hct MCV MCH MCHC RDW Plt Count Seg Neuts % (Manual) Lymphocytes % (Manual) Seg Neutrophils # Man Lymphocytes # (Manual) Monocytes # (Manual) PT INR D-Dimer ABG pH 7.479 H ABG pO2 121.3 H ABG HCO3 ABG O2 Saturation ABG Base Excess ABG Hemoglobin 7.3 L Oxyhemoglobin Sodium Potassium Chloride 112.5 H Carbon Dioxide BUN 33 H Creatinine Glucose 161 H POC Glucose 135 H Lactic Acid Calcium Phosphorus Magnesium AST 251 H ALT 481 H Alkaline Phosphatase Lactate Dehydrogenase Troponin T C-Reactive Protein NT-Pro-B Natriuret Pep Total Protein 5.0 L Albumin 2.8 L LDL Cholesterol Direct Vitamin B12 Crossmatch 11/09/21 11/09/21 11/09/21 11:33 16:32 23:28 WBC RBC Hgb Hct MCV MCH MCHC RDW Plt Count Seg Neuts % (Manual) Lymphocytes % (Manual) Seg Neutrophils # Man Lymphocytes # (Manual) Monocytes # (Manual) PT INR D-Dimer ABG pH ABG pO2 ABG HCO3 ABG O2 Saturation ABG Base Excess ABG Hemoglobin Oxyhemoglobin Sodium Potassium Chloride Carbon Dioxide BUN Creatinine Glucose POC Glucose 132 H 133 H 143 H Lactic Acid Calcium Phosphorus Magnesium AST ALT Alkaline Phosphatase Lactate Dehydrogenase Troponin T C-Reactive Protein NT-Pro-B Natriuret Pep Total Protein Albumin LDL Cholesterol Direct Vitamin B12 Crossmatch 11/10/21 11/10/21 11/10/21 04:00 04:00 05:35 WBC 16.0 H RBC 3.61 L Hgb 8.0 L Hct 27.1 L MCV 75 L MCH 22 L MCHC RDW 20.4 H Plt Count Seg Neuts % (Manual) Lymphocytes % (Manual) Seg Neutrophils # Man Lymphocytes # (Manual) Monocytes # (Manual) PT INR D-Dimer ABG pH ABG pO2 ABG HCO3 ABG O2 Saturation ABG Base Excess ABG Hemoglobin Oxyhemoglobin Sodium 149 H Potassium Chloride 114.1 H Carbon Dioxide BUN 31 H Creatinine Glucose 148 H POC Glucose 132 H Lactic Acid Calcium 8.2 L Phosphorus Magnesium AST ALT Alkaline Phosphatase Lactate Dehydrogenase Troponin T C-Reactive Protein NT-Pro-B Natriuret Pep Total Protein Albumin LDL Cholesterol Direct Vitamin B12 Crossmatch 11/10/21 11/10/21 11/10/21 11:31 14:08 15:35 WBC RBC Hgb Hct MCV MCH MCHC RDW Plt Count Seg Neuts % (Manual) Lymphocytes % (Manual) Seg Neutrophils # Man Lymphocytes # (Manual) Monocytes # (Manual) PT INR D-Dimer ABG pH ABG pO2 126.6 H ABG HCO3 ABG O2 Saturation ABG Base Excess ABG Hemoglobin 7.4 L Oxyhemoglobin Sodium Potassium Chloride Carbon Dioxide BUN Creatinine Glucose POC Glucose 147 H Lactic Acid Calcium Phosphorus Magnesium AST ALT Alkaline Phosphatase Lactate Dehydrogenase Troponin T C-Reactive Protein NT-Pro-B Natriuret Pep Total Protein Albumin LDL Cholesterol Direct Vitamin B12 1823 H Crossmatch 11/10/21 11/11/21 11/11/21 17:53 00:55 04:28 WBC RBC Hgb Hct MCV MCH MCHC RDW Plt Count Seg Neuts % (Manual) Lymphocytes % (Manual) Seg Neutrophils # Man Lymphocytes # (Manual) Monocytes # (Manual) PT INR D-Dimer ABG pH ABG pO2 ABG HCO3 ABG O2 Saturation ABG Base Excess ABG Hemoglobin Oxyhemoglobin Sodium 149 H Potassium Chloride 112.2 H Carbon Dioxide BUN 34 H Creatinine Glucose 148 H POC Glucose 140 H 145 H Lactic Acid Calcium 7.9 L Phosphorus Magnesium AST 53 H ALT 203 H Alkaline Phosphatase Lactate Dehydrogenase Troponin T C-Reactive Protein NT-Pro-B Natriuret Pep Total Protein 4.9 L Albumin 2.6 L LDL Cholesterol Direct Vitamin B12 Crossmatch 11/11/21 11/11/21 11/11/21 04:28 04:28 05:28 WBC 20.9 H RBC 3.47 L Hgb 7.5 L Hct 26.0 L MCV 75 L MCH 22 L MCHC 29 L RDW 21.6 H Plt Count 132 L Seg Neuts % (Manual) Lymphocytes % (Manual) Seg Neutrophils # Man Lymphocytes # (Manual) Monocytes # (Manual) PT INR D-Dimer 2655.00 H ABG pH ABG pO2 ABG HCO3 ABG O2 Saturation ABG Base Excess ABG Hemoglobin Oxyhemoglobin Sodium Potassium Chloride Carbon Dioxide BUN Creatinine Glucose POC Glucose 154 H Lactic Acid Calcium Phosphorus Magnesium AST ALT Alkaline Phosphatase Lactate Dehydrogenase Troponin T C-Reactive Protein NT-Pro-B Natriuret Pep Total Protein Albumin LDL Cholesterol Direct Vitamin B12 Crossmatch 11/11/21 11/11/21 11/12/21 12:38 18:13 00:14 WBC RBC Hgb Hct MCV MCH MCHC RDW Plt Count Seg Neuts % (Manual) Lymphocytes % (Manual) Seg Neutrophils # Man Lymphocytes # (Manual) Monocytes # (Manual) PT INR D-Dimer ABG pH ABG pO2 ABG HCO3 ABG O2 Saturation ABG Base Excess ABG Hemoglobin Oxyhemoglobin Sodium Potassium Chloride Carbon Dioxide BUN Creatinine Glucose POC Glucose 137 H 108 H 137 H Lactic Acid Calcium Phosphorus Magnesium AST ALT Alkaline Phosphatase Lactate Dehydrogenase Troponin T C-Reactive Protein NT-Pro-B Natriuret Pep Total Protein Albumin LDL Cholesterol Direct Vitamin B12 Crossmatch 11/12/21 11/12/21 11/12/21 05:40 06:24 11:12 WBC RBC Hgb Hct MCV MCH MCHC RDW Plt Count Seg Neuts % (Manual) Lymphocytes % (Manual) Seg Neutrophils # Man Lymphocytes # (Manual) Monocytes # (Manual) PT INR D-Dimer ABG pH 7.586 H ABG pO2 150.6 H ABG HCO3 27.2 H ABG O2 Saturation 99.1 H ABG Base Excess 5.2 H ABG Hemoglobin 7.5 L Oxyhemoglobin Sodium Potassium Chloride Carbon Dioxide BUN Creatinine Glucose POC Glucose 132 H 140 H Lactic Acid Calcium Phosphorus Magnesium AST ALT Alkaline Phosphatase Lactate Dehydrogenase Troponin T C-Reactive Protein NT-Pro-B Natriuret Pep Total Protein Albumin LDL Cholesterol Direct Vitamin B12 Crossmatch 11/12/21 11/12/21 11/12/21 14:50 14:50 17:13 WBC 19.8 H RBC 3.27 L Hgb 7.1 L Hct 24.5 L MCV 75 L MCH 22 L MCHC 29 L RDW 22.3 H Plt Count Seg Neuts % (Manual) Lymphocytes % (Manual) Seg Neutrophils # Man Lymphocytes # (Manual) Monocytes # (Manual) PT INR D-Dimer ABG pH ABG pO2 ABG HCO3 ABG O2 Saturation ABG Base Excess ABG Hemoglobin Oxyhemoglobin Sodium 150 H Potassium 3.3 L Chloride 112.0 H Carbon Dioxide BUN 40 H Creatinine Glucose 151 H POC Glucose 121 H Lactic Acid Calcium 7.4 L Phosphorus 1.70 L Magnesium 1.40 L AST ALT Alkaline Phosphatase Lactate Dehydrogenase Troponin T C-Reactive Protein NT-Pro-B Natriuret Pep Total Protein Albumin LDL Cholesterol Direct Vitamin B12 Crossmatch 11/12/21 11/13/21 11/13/21 23:19 05:34 06:30 WBC RBC Hgb Hct MCV MCH MCHC RDW Plt Count Seg Neuts % (Manual) Lymphocytes % (Manual) Seg Neutrophils # Man Lymphocytes # (Manual) Monocytes # (Manual) PT INR D-Dimer ABG pH ABG pO2 ABG HCO3 ABG O2 Saturation ABG Base Excess ABG Hemoglobin Oxyhemoglobin Sodium 149 H Potassium Chloride 60.0 L Carbon Dioxide BUN 40 H Creatinine Glucose 146 H POC Glucose 113 H 132 H Lactic Acid Calcium 7.3 L Phosphorus Magnesium 2.40 H AST ALT 72 H Alkaline Phosphatase Lactate Dehydrogenase Troponin T C-Reactive Protein NT-Pro-B Natriuret Pep Total Protein 5.2 L Albumin 2.2 L LDL Cholesterol Direct Vitamin B12 Crossmatch 11/13/21 11/13/21 11/13/21 06:30 08:30 11:19 WBC 21.2 H RBC 3.12 L Hgb 6.8 L Hct 23.2 L MCV 74 L MCH 22 L MCHC 29 L RDW 22.2 H Plt Count 135 L Seg Neuts % (Manual) Lymphocytes % (Manual) Seg Neutrophils # Man Lymphocytes # (Manual) Monocytes # (Manual) PT INR D-Dimer ABG pH ABG pO2 ABG HCO3 ABG O2 Saturation ABG Base Excess ABG Hemoglobin Oxyhemoglobin Sodium Potassium Chloride Carbon Dioxide BUN Creatinine Glucose POC Glucose 136 H Lactic Acid Calcium Phosphorus Magnesium AST ALT Alkaline Phosphatase Lactate Dehydrogenase Troponin T C-Reactive Protein NT-Pro-B Natriuret Pep Total Protein Albumin LDL Cholesterol Direct Vitamin B12 Crossmatch See Detail 11/13/21 11/14/21 11/14/21 18:21 00:01 04:46 WBC 20.0 H RBC 3.41 L Hgb 7.9 L Hct 26.8 L MCV MCH 23 L MCHC 29 L RDW 24.0 H Plt Count Seg Neuts % (Manual) Lymphocytes % (Manual) Seg Neutrophils # Man Lymphocytes # (Manual) Monocytes # (Manual) PT INR D-Dimer ABG pH ABG pO2 ABG HCO3 ABG O2 Saturation ABG Base Excess ABG Hemoglobin Oxyhemoglobin Sodium Potassium Chloride Carbon Dioxide BUN Creatinine Glucose POC Glucose 149 H 141 H Lactic Acid Calcium Phosphorus Magnesium AST ALT Alkaline Phosphatase Lactate Dehydrogenase Troponin T C-Reactive Protein NT-Pro-B Natriuret Pep Total Protein Albumin LDL Cholesterol Direct Vitamin B12 Crossmatch 11/14/21 11/14/21 11/14/21 04:46 05:10 11:10 WBC RBC Hgb Hct MCV MCH MCHC RDW Plt Count Seg Neuts % (Manual) Lymphocytes % (Manual) Seg Neutrophils # Man Lymphocytes # (Manual) Monocytes # (Manual) PT INR D-Dimer ABG pH ABG pO2 ABG HCO3 ABG O2 Saturation ABG Base Excess ABG Hemoglobin Oxyhemoglobin Sodium 148 H Potassium Chloride 113.1 H Carbon Dioxide BUN 43 H Creatinine Glucose 140 H POC Glucose 132 H 133 H Lactic Acid Calcium 7.5 L Phosphorus Magnesium AST ALT Alkaline Phosphatase Lactate Dehydrogenase Troponin T C-Reactive Protein NT-Pro-B Natriuret Pep Total Protein Albumin LDL Cholesterol Direct Vitamin B12 Crossmatch 0111/14/21 11/14/21 16:14 17:48 23:23 WBC RBC Hgb Hct MCV MCH MCHC RDW Plt Count Seg Neuts % (Manual) Lymphocytes % (Manual) Seg Neutrophils # Man Lymphocytes # (Manual) Monocytes # (Manual) PT INR D-Dimer ABG pH ABG pO2 ABG HCO3 28.0 H ABG O2 Saturation ABG Base Excess 3.1 H ABG Hemoglobin 5.8 L Oxyhemoglobin 94.8 L Sodium Potassium Chloride Carbon Dioxide BUN Creatinine Glucose POC Glucose 130 H 136 H Lactic Acid Calcium Phosphorus Magnesium AST ALT Alkaline Phosphatase Lactate Dehydrogenase Troponin T C-Reactive Protein NT-Pro-B Natriuret Pep Total Protein Albumin LDL Cholesterol Direct Vitamin B12 Crossmatch 11/15/21 11/15/21 11/15/21 05:20 05:50 05:50 WBC 19.9 H RBC 3.50 L Hgb 8.2 L Hct 27.9 L MCV MCH 23 L MCHC 29 L RDW 24.9 H Plt Count Seg Neuts % (Manual) Lymphocytes % (Manual) Seg Neutrophils # Man Lymphocytes # (Manual) Monocytes # (Manual) PT INR D-Dimer ABG pH ABG pO2 ABG HCO3 ABG O2 Saturation ABG Base Excess ABG Hemoglobin Oxyhemoglobin Sodium 149 H Potassium Chloride 112.0 H Carbon Dioxide BUN 48 H Creatinine Glucose 152 H POC Glucose 137 H Lactic Acid Calcium 7.9 L Phosphorus Magnesium AST ALT Alkaline Phosphatase Lactate Dehydrogenase Troponin T C-Reactive Protein NT-Pro-B Natriuret Pep Total Protein Albumin LDL Cholesterol Direct Vitamin B12 Crossmatch 11/15/21 11/15/21 11/15/21 12:12 17:07 23:24 WBC RBC Hgb Hct MCV MCH MCHC RDW Plt Count Seg Neuts % (Manual) Lymphocytes % (Manual) Seg Neutrophils # Man Lymphocytes # (Manual) Monocytes # (Manual) PT INR D-Dimer ABG pH ABG pO2 ABG HCO3 ABG O2 Saturation ABG Base Excess ABG Hemoglobin Oxyhemoglobin Sodium Potassium Chloride Carbon Dioxide BUN Creatinine Glucose POC Glucose 114 H 135 H 123 H Lactic Acid Calcium Phosphorus Magnesium AST ALT Alkaline Phosphatase Lactate Dehydrogenase Troponin T C-Reactive Protein NT-Pro-B Natriuret Pep Total Protein Albumin LDL Cholesterol Direct Vitamin B12 Crossmatch 11/16/21 11/16/21 11/16/21 05:21 10:00 10:00 WBC 21.7 H RBC 2.57 L Hgb 6.0 L Hct 20.2 L D MCV MCH 24 L MCHC RDW 26.3 H Plt Count Seg Neuts % (Manual) Lymphocytes % (Manual) Seg Neutrophils # Man Lymphocytes # (Manual) Monocytes # (Manual) PT INR D-Dimer ABG pH ABG pO2 ABG HCO3 ABG O2 Saturation ABG Base Excess ABG Hemoglobin Oxyhemoglobin Sodium 153 H Potassium Chloride 114.9 H Carbon Dioxide BUN 74 H Creatinine Glucose 155 H POC Glucose 127 H Lactic Acid Calcium 8.1 L Phosphorus Magnesium AST ALT Alkaline Phosphatase Lactate Dehydrogenase Troponin T C-Reactive Protein NT-Pro-B Natriuret Pep Total Protein Albumin LDL Cholesterol Direct Vitamin B12 Crossmatch 11/16/21 11/16/21 11/16/21 11:34 14:00 15:25 WBC 17.2 H RBC 2.08 L Hgb 4.7 L* Hct 16.2 L* MCV 78 L MCH 23 L MCHC 29 L RDW 26.0 H Plt Count Seg Neuts % (Manual) 87.0 H Lymphocytes % (Manual) 8.0 L Seg Neutrophils # Man 15.0 H Lymphocytes # (Manual) Monocytes # (Manual) 0.9 H PT INR D-Dimer ABG pH ABG pO2 ABG HCO3 ABG O2 Saturation ABG Base Excess ABG Hemoglobin Oxyhemoglobin Sodium Potassium Chloride Carbon Dioxide BUN Creatinine Glucose POC Glucose 131 H Lactic Acid Calcium Phosphorus Magnesium AST ALT Alkaline Phosphatase Lactate Dehydrogenase Troponin T C-Reactive Protein NT-Pro-B Natriuret Pep Total Protein Albumin LDL Cholesterol Direct Vitamin B12 Crossmatch See Detail 11/16/21 11/16/21 11/16/21 15:25 17:21 22:43 WBC RBC Hgb 8.6 L D Hct 27.7 L D MCV MCH MCHC RDW Plt Count Seg Neuts % (Manual) Lymphocytes % (Manual) Seg Neutrophils # Man Lymphocytes # (Manual) Monocytes # (Manual) PT INR D-Dimer ABG pH ABG pO2 ABG HCO3 ABG O2 Saturation ABG Base Excess ABG Hemoglobin Oxyhemoglobin Sodium 148 H Potassium Chloride 113.2 H Carbon Dioxide BUN 84 H Creatinine Glucose 164 H POC Glucose 124 H Lactic Acid Calcium 7.6 L Phosphorus Magnesium AST ALT Alkaline Phosphatase Lactate Dehydrogenase Troponin T C-Reactive Protein NT-Pro-B Natriuret Pep Total Protein Albumin LDL Cholesterol Direct Vitamin B12 Crossmatch 11/16/21 11/17/21 11/17/21 23:07 05:33 05:56 WBC 25.1 H RBC 3.47 L Hgb 8.7 L Hct 28.5 L MCV MCH 25 L MCHC RDW 22.3 H Plt Count Seg Neuts % (Manual) Lymphocytes % (Manual) Seg Neutrophils # Man Lymphocytes # (Manual) Monocytes # (Manual) PT INR D-Dimer ABG pH ABG pO2 ABG HCO3 ABG O2 Saturation ABG Base Excess ABG Hemoglobin Oxyhemoglobin Sodium Potassium Chloride Carbon Dioxide BUN Creatinine Glucose POC Glucose 128 H 133 H Lactic Acid Calcium Phosphorus Magnesium AST ALT Alkaline Phosphatase Lactate Dehydrogenase Troponin T C-Reactive Protein NT-Pro-B Natriuret Pep Total Protein Albumin LDL Cholesterol Direct Vitamin B12 Crossmatch 11/17/21 11/17/21 11/17/21 05:56 11:00 11:55 WBC RBC Hgb 8.3 L Hct 26.9 L MCV MCH MCHC RDW Plt Count Seg Neuts % (Manual) Lymphocytes % (Manual) Seg Neutrophils # Man Lymphocytes # (Manual) Monocytes # (Manual) PT INR D-Dimer ABG pH ABG pO2 ABG HCO3 ABG O2 Saturation ABG Base Excess ABG Hemoglobin Oxyhemoglobin Sodium 151 H Potassium Chloride 113.6 H Carbon Dioxide BUN 85 H Creatinine Glucose 132 H POC Glucose 121 H Lactic Acid Calcium 7.8 L Phosphorus Magnesium AST ALT Alkaline Phosphatase Lactate Dehydrogenase Troponin T C-Reactive Protein NT-Pro-B Natriuret Pep Total Protein 5.1 L Albumin 2.2 L LDL Cholesterol Direct Vitamin B12 Crossmatch 11/17/21 11/17/21 11/18/21 18:04 18:55 00:26 WBC RBC Hgb 7.5 L 7.1 L Hct 24.8 L 23.6 L MCV MCH MCHC RDW Plt Count Seg Neuts % (Manual) Lymphocytes % (Manual) Seg Neutrophils # Man Lymphocytes # (Manual) Monocytes # (Manual) PT INR D-Dimer ABG pH ABG pO2 ABG HCO3 ABG O2 Saturation ABG Base Excess ABG Hemoglobin Oxyhemoglobin Sodium Potassium Chloride Carbon Dioxide BUN Creatinine Glucose POC Glucose 144 H Lactic Acid Calcium Phosphorus Magnesium AST ALT Alkaline Phosphatase Lactate Dehydrogenase Troponin T C-Reactive Protein NT-Pro-B Natriuret Pep Total Protein Albumin LDL Cholesterol Direct Vitamin B12 Crossmatch 11/18/21 11/18/2122 00:43 05:10 05:10 WBC 12.5 H RBC 2.39 L Hgb 6.1 L Hct 20.2 L MCV MCH 25 L MCHC RDW 23.2 H Plt Count Seg Neuts % (Manual) Lymphocytes % (Manual) Seg Neutrophils # Man Lymphocytes # (Manual) Monocytes # (Manual) PT INR D-Dimer ABG pH ABG pO2 ABG HCO3 ABG O2 Saturation ABG Base Excess ABG Hemoglobin Oxyhemoglobin Sodium 131 L D Potassium 2.9 L* D Chloride 97.8 L Carbon Dioxide BUN 58 H Creatinine Glucose 665 H* POC Glucose 139 H Lactic Acid Calcium 7.0 L Phosphorus 2.20 L D Magnesium 1.50 L AST ALT Alkaline Phosphatase Lactate Dehydrogenase Troponin T C-Reactive Protein NT-Pro-B Natriuret Pep Total Protein Albumin LDL Cholesterol Direct Vitamin B12 Crossmatch 11/18/21 11/18/21 11/18/21 05:23 07:10 10:45 WBC RBC Hgb Hct MCV MCH MCHC RDW Plt Count Seg Neuts % (Manual) Lymphocytes % (Manual) Seg Neutrophils # Man Lymphocytes # (Manual) Monocytes # (Manual) PT INR D-Dimer ABG pH ABG pO2 ABG HCO3 ABG O2 Saturation ABG Base Excess ABG Hemoglobin Oxyhemoglobin Sodium 148 H D Potassium 3.1 L Chloride 111.9 H Carbon Dioxide BUN 63 H Creatinine Glucose 141 H POC Glucose 124 H Lactic Acid Calcium 8.1 L D Phosphorus Magnesium AST ALT Alkaline Phosphatase Lactate Dehydrogenase Troponin T C-Reactive Protein NT-Pro-B Natriuret Pep Total Protein Albumin LDL Cholesterol Direct Vitamin B12 Crossmatch See Detail 11/18/21 11/19/21 11/19/21 11:57 00:19 04:55 WBC RBC 3.35 L Hgb 9.0 L 8.9 L Hct 28.3 L D 28.1 L MCV MCH 27 L MCHC RDW 20.3 H Plt Count Seg Neuts % (Manual) Lymphocytes % (Manual) Seg Neutrophils # Man Lymphocytes # (Manual) Monocytes # (Manual) PT INR D-Dimer ABG pH ABG pO2 ABG HCO3 ABG O2 Saturation ABG Base Excess ABG Hemoglobin Oxyhemoglobin Sodium Potassium Chloride Carbon Dioxide BUN Creatinine Glucose POC Glucose 119 H Lactic Acid Calcium Phosphorus Magnesium AST ALT Alkaline Phosphatase Lactate Dehydrogenase Troponin T C-Reactive Protein NT-Pro-B Natriuret Pep Total Protein Albumin LDL Cholesterol Direct Vitamin B12 Crossmatch 11/19/21 11/19/21 11/20/21 04:55 05:42 00:55 WBC RBC Hgb 9.0 L Hct 28.6 L MCV MCH MCHC RDW Plt Count Seg Neuts % (Manual) Lymphocytes % (Manual) Seg Neutrophils # Man Lymphocytes # (Manual) Monocytes # (Manual) PT INR D-Dimer ABG pH ABG pO2 ABG HCO3 ABG O2 Saturation ABG Base Excess ABG Hemoglobin Oxyhemoglobin Sodium Potassium 3.5 L Chloride 108.6 H Carbon Dioxide BUN 47 H Creatinine Glucose 207 H POC Glucose 63 L Lactic Acid Calcium 7.1 L Phosphorus Magnesium AST ALT Alkaline Phosphatase Lactate Dehydrogenase Troponin T C-Reactive Protein NT-Pro-B Natriuret Pep Total Protein Albumin LDL Cholesterol Direct Vitamin B12 Crossmatch 11/20/21 11/20/21 11/20/21 05:40 05:40 Unknown WBC RBC 3.40 L Hgb 9.1 L Hct 28.8 L MCV MCH 27 L MCHC RDW 20.7 H Plt Count Seg Neuts % (Manual) Lymphocytes % (Manual) Seg Neutrophils # Man Lymphocytes # (Manual) Monocytes # (Manual) PT INR D-Dimer ABG pH ABG pO2 ABG HCO3 ABG O2 Saturation ABG Base Excess -2.7 L ABG Hemoglobin 9.5 L Oxyhemoglobin 94.3 L Sodium Potassium 3.5 L Chloride 108.9 H Carbon Dioxide BUN 37 H Creatinine Glucose 117 H POC Glucose Lactic Acid Calcium 7.5 L Phosphorus Magnesium AST ALT Alkaline Phosphatase Lactate Dehydrogenase Troponin T C-Reactive Protein NT-Pro-B Natriuret Pep Total Protein Albumin LDL Cholesterol Direct Vitamin B12 Crossmatch 11/21/21 11/21/21 11/21/21 04:30 04:30 16:00 WBC RBC 3.25 L Hgb 8.6 L Hct 28.1 L MCV MCH 26 L MCHC RDW 20.7 H Plt Count Seg Neuts % (Manual) Lymphocytes % (Manual) Seg Neutrophils # Man Lymphocytes # (Manual) Monocytes # (Manual) PT INR D-Dimer ABG pH ABG pO2 114.2 H ABG HCO3 ABG O2 Saturation ABG Base Excess ABG Hemoglobin 9.1 L Oxyhemoglobin Sodium 134 L Potassium Chloride Carbon Dioxide 20 L BUN 34 H Creatinine Glucose POC Glucose Lactic Acid Calcium 7.1 L Phosphorus Magnesium AST ALT Alkaline Phosphatase Lactate Dehydrogenase Troponin T C-Reactive Protein NT-Pro-B Natriuret Pep Total Protein Albumin LDL Cholesterol Direct Vitamin B12 Crossmatch 11/22/21 11/22/21 11/22/21 07:07 07:07 23:54 WBC RBC 3.30 L Hgb 9.0 L Hct 28.5 L MCV MCH 27 L MCHC RDW 21.0 H Plt Count Seg Neuts % (Manual) Lymphocytes % (Manual) Seg Neutrophils # Man Lymphocytes # (Manual) Monocytes # (Manual) PT INR D-Dimer ABG pH ABG pO2 ABG HCO3 ABG O2 Saturation ABG Base Excess ABG Hemoglobin Oxyhemoglobin Sodium Potassium Chloride Carbon Dioxide BUN 32 H Creatinine Glucose 106 H POC Glucose 110 H Lactic Acid Calcium 7.5 L Phosphorus Magnesium AST ALT Alkaline Phosphatase Lactate Dehydrogenase Troponin T C-Reactive Protein NT-Pro-B Natriuret Pep Total Protein Albumin LDL Cholesterol Direct Vitamin B12 Crossmatch 11/23/21 11/23/21 11/23/21 04:38 04:38 06:01 WBC RBC 3.23 L Hgb 8.8 L Hct 28.0 L MCV MCH 27 L MCHC RDW 21.3 H Plt Count Seg Neuts % (Manual) Lymphocytes % (Manual) Seg Neutrophils # Man Lymphocytes # (Manual) Monocytes # (Manual) PT INR D-Dimer ABG pH ABG pO2 ABG HCO3 ABG O2 Saturation ABG Base Excess ABG Hemoglobin Oxyhemoglobin Sodium 136 L Potassium Chloride Carbon Dioxide 20 L BUN 32 H Creatinine Glucose 109 H POC Glucose 115 H Lactic Acid Calcium 7.7 L Phosphorus Magnesium AST ALT Alkaline Phosphatase Lactate Dehydrogenase Troponin T C-Reactive Protein NT-Pro-B Natriuret Pep Total Protein Albumin LDL Cholesterol Direct Vitamin B12 Crossmatch 11/23/21 11/24/21 11/24/21 11:40 00:03 04:13 WBC RBC 3.18 L Hgb 8.5 L Hct 27.5 L MCV MCH 27 L MCHC RDW 21.6 H Plt Count Seg Neuts % (Manual) Lymphocytes % (Manual) Seg Neutrophils # Man Lymphocytes # (Manual) Monocytes # (Manual) PT INR D-Dimer ABG pH ABG pO2 ABG HCO3 ABG O2 Saturation ABG Base Excess ABG Hemoglobin Oxyhemoglobin Sodium Potassium Chloride Carbon Dioxide BUN Creatinine Glucose POC Glucose 117 H 111 H Lactic Acid Calcium Phosphorus Magnesium AST ALT Alkaline Phosphatase Lactate Dehydrogenase Troponin T C-Reactive Protein NT-Pro-B Natriuret Pep Total Protein Albumin LDL Cholesterol Direct Vitamin B12 Crossmatch 11/24/21 11/24/21 11/24/21 04:13 05:30 11:10 WBC RBC Hgb Hct MCV MCH MCHC RDW Plt Count Seg Neuts % (Manual) Lymphocytes % (Manual) Seg Neutrophils # Man Lymphocytes # (Manual) Monocytes # (Manual) PT INR D-Dimer ABG pH ABG pO2 ABG HCO3 ABG O2 Saturation ABG Base Excess ABG Hemoglobin Oxyhemoglobin Sodium Potassium Chloride Carbon Dioxide BUN 31 H Creatinine Glucose 101 H POC Glucose 115 H 107 H Lactic Acid Calcium 7.7 L Phosphorus Magnesium AST ALT Alkaline Phosphatase Lactate Dehydrogenase Troponin T C-Reactive Protein NT-Pro-B Natriuret Pep Total Protein Albumin LDL Cholesterol Direct Vitamin B12 Crossmatch 11/24/21 11/24/21 11/25/21 16:34 17:57 05:12 WBC RBC 3.11 L Hgb 8.2 L Hct 26.6 L MCV MCH 26 L MCHC RDW 21.3 H Plt Count Seg Neuts % (Manual) Lymphocytes % (Manual) Seg Neutrophils # Man Lymphocytes # (Manual) Monocytes # (Manual) PT INR D-Dimer ABG pH ABG pO2 ABG HCO3 ABG O2 Saturation ABG Base Excess ABG Hemoglobin Oxyhemoglobin Sodium Potassium Chloride Carbon Dioxide BUN Creatinine Glucose POC Glucose 115 H 110 H Lactic Acid Calcium Phosphorus Magnesium AST ALT Alkaline Phosphatase Lactate Dehydrogenase Troponin T C-Reactive Protein NT-Pro-B Natriuret Pep Total Protein Albumin LDL Cholesterol Direct Vitamin B12 Crossmatch 11/25/21 11/25/21 11/26/21 05:12 11:20 05:00 WBC RBC 3.30 L Hgb 8.8 L Hct 28.2 L MCV MCH 27 L MCHC RDW 20.7 H Plt Count Seg Neuts % (Manual) Lymphocytes % (Manual) Seg Neutrophils # Man Lymphocytes # (Manual) Monocytes # (Manual) PT INR D-Dimer ABG pH ABG pO2 ABG HCO3 ABG O2 Saturation ABG Base Excess ABG Hemoglobin Oxyhemoglobin Sodium Potassium Chloride Carbon Dioxide BUN 32 H Creatinine Glucose 118 H POC Glucose 118 H Lactic Acid Calcium 8.2 L Phosphorus Magnesium AST ALT Alkaline Phosphatase Lactate Dehydrogenase Troponin T C-Reactive Protein NT-Pro-B Natriuret Pep Total Protein Albumin LDL Cholesterol Direct Vitamin B12 Crossmatch 11/26/21 11/26/21 11/26/21 05:00 05:00 05:44 WBC RBC Hgb Hct MCV MCH MCHC RDW Plt Count Seg Neuts % (Manual) Lymphocytes % (Manual) Seg Neutrophils # Man Lymphocytes # (Manual) Monocytes # (Manual) PT 16.9 H INR 1.24 H D-Dimer ABG pH ABG pO2 ABG HCO3 ABG O2 Saturation ABG Base Excess ABG Hemoglobin Oxyhemoglobin Sodium Potassium Chloride Carbon Dioxide BUN 31 H Creatinine Glucose 104 H POC Glucose 110 H Lactic Acid Calcium 7.9 L Phosphorus Magnesium AST ALT Alkaline Phosphatase Lactate Dehydrogenase Troponin T C-Reactive Protein NT-Pro-B Natriuret Pep Total Protein Albumin LDL Cholesterol Direct Vitamin B12 Crossmatch 11/26/21 11/27/21 11/27/21 23:55 07:40 07:40 WBC RBC 3.18 L Hgb 8.5 L Hct 27.0 L MCV MCH 27 L MCHC RDW 21.2 H Plt Count Seg Neuts % (Manual) Lymphocytes % (Manual) Seg Neutrophils # Man Lymphocytes # (Manual) Monocytes # (Manual) PT INR D-Dimer ABG pH ABG pO2 ABG HCO3 ABG O2 Saturation ABG Base Excess ABG Hemoglobin Oxyhemoglobin Sodium Potassium Chloride Carbon Dioxide BUN 27 H Creatinine Glucose 112 H POC Glucose 63 L Lactic Acid Calcium 7.6 L Phosphorus Magnesium AST ALT Alkaline Phosphatase Lactate Dehydrogenase Troponin T C-Reactive Protein NT-Pro-B Natriuret Pep Total Protein Albumin LDL Cholesterol Direct Vitamin B12 Crossmatch 11/27/21 11/27/21 11/27/21 12:04 13:40 13:40 WBC RBC 3.31 L Hgb 8.7 L Hct 28.0 L MCV MCH 26 L MCHC RDW 20.7 H Plt Count Seg Neuts % (Manual) Lymphocytes % (Manual) Seg Neutrophils # Man Lymphocytes # (Manual) Monocytes # (Manual) PT INR D-Dimer ABG pH ABG pO2 ABG HCO3 ABG O2 Saturation ABG Base Excess ABG Hemoglobin Oxyhemoglobin Sodium 136 L Potassium Chloride Carbon Dioxide BUN 25 H Creatinine Glucose 127 H POC Glucose 109 H Lactic Acid Calcium 7.6 L Phosphorus Magnesium 1.40 L AST ALT Alkaline Phosphatase Lactate Dehydrogenase Troponin T C-Reactive Protein NT-Pro-B Natriuret Pep Total Protein Albumin LDL Cholesterol Direct Vitamin B12 Crossmatch 11/27/21 11/27/21 11/28/21 17:44 23:33 12:20 WBC RBC Hgb Hct MCV MCH MCHC RDW Plt Count Seg Neuts % (Manual) Lymphocytes % (Manual) Seg Neutrophils # Man Lymphocytes # (Manual) Monocytes # (Manual) PT INR D-Dimer ABG pH ABG pO2 ABG HCO3 ABG O2 Saturation ABG Base Excess ABG Hemoglobin Oxyhemoglobin Sodium Potassium Chloride Carbon Dioxide BUN Creatinine Glucose POC Glucose 107 H 108 H 114 H Lactic Acid Calcium Phosphorus Magnesium AST ALT Alkaline Phosphatase Lactate Dehydrogenase Troponin T C-Reactive Protein NT-Pro-B Natriuret Pep Total Protein Albumin LDL Cholesterol Direct Vitamin B12 Crossmatch 11/29/21 11/29/21 11/29/21 00:09 03:20 03:20 WBC RBC 3.05 L Hgb 8.2 L Hct 25.8 L MCV MCH 27 L MCHC RDW 20.9 H Plt Count Seg Neuts % (Manual) Lymphocytes % (Manual) Seg Neutrophils # Man Lymphocytes # (Manual) Monocytes # (Manual) PT INR D-Dimer ABG pH ABG pO2 ABG HCO3 ABG O2 Saturation ABG Base Excess ABG Hemoglobin Oxyhemoglobin Sodium 133 L Potassium Chloride Carbon Dioxide BUN 24 H Creatinine Glucose 137 H POC Glucose 134 H Lactic Acid Calcium 7.4 L Phosphorus Magnesium AST ALT Alkaline Phosphatase Lactate Dehydrogenase Troponin T C-Reactive Protein NT-Pro-B Natriuret Pep Total Protein Albumin LDL Cholesterol Direct Vitamin B12 Crossmatch 11/29/21 11/29/21 11/29/21 05:38 11:39 17:11 WBC RBC Hgb Hct MCV MCH MCHC RDW Plt Count Seg Neuts % (Manual) Lymphocytes % (Manual) Seg Neutrophils # Man Lymphocytes # (Manual) Monocytes # (Manual) PT INR D-Dimer ABG pH ABG pO2 ABG HCO3 ABG O2 Saturation ABG Base Excess ABG Hemoglobin Oxyhemoglobin Sodium Potassium Chloride Carbon Dioxide BUN Creatinine Glucose POC Glucose 117 H 143 H 124 H Lactic Acid Calcium Phosphorus Magnesium AST ALT Alkaline Phosphatase Lactate Dehydrogenase Troponin T C-Reactive Protein NT-Pro-B Natriuret Pep Total Protein Albumin LDL Cholesterol Direct Vitamin B12 Crossmatch 11/29/21 11/30/21 11/30/21 20:15 05:40 05:40 WBC 12.6 H RBC 3.41 L Hgb 9.1 L Hct 28.9 L MCV MCH 27 L MCHC RDW 20.4 H Plt Count Seg Neuts % (Manual) Lymphocytes % (Manual) Seg Neutrophils # Man Lymphocytes # (Manual) Monocytes # (Manual) PT INR D-Dimer ABG pH ABG pO2 ABG HCO3 ABG O2 Saturation ABG Base Excess ABG Hemoglobin Oxyhemoglobin Sodium Potassium Chloride Carbon Dioxide BUN 24 H Creatinine Glucose 131 H POC Glucose Lactic Acid Calcium 7.6 L Phosphorus Magnesium AST ALT Alkaline Phosphatase Lactate Dehydrogenase Troponin T 0.045 H C-Reactive Protein NT-Pro-B Natriuret Pep Total Protein Albumin LDL Cholesterol Direct 25 L Vitamin B12 Crossmatch 11/30/21 11/30/21 12/01/21 11:29 16:51 05:00 WBC RBC 2.97 L Hgb 8.0 L Hct 25.0 L MCV MCH 27 L MCHC RDW 20.8 H Plt Count Seg Neuts % (Manual) Lymphocytes % (Manual) Seg Neutrophils # Man Lymphocytes # (Manual) Monocytes # (Manual) PT INR D-Dimer ABG pH ABG pO2 ABG HCO3 ABG O2 Saturation ABG Base Excess ABG Hemoglobin Oxyhemoglobin Sodium Potassium Chloride Carbon Dioxide BUN Creatinine Glucose POC Glucose 123 H 114 H Lactic Acid Calcium Phosphorus Magnesium AST ALT Alkaline Phosphatase Lactate Dehydrogenase Troponin T C-Reactive Protein NT-Pro-B Natriuret Pep Total Protein Albumin LDL Cholesterol Direct Vitamin B12 Crossmatch 12/01/21 12/01/21 12/01/21 05:00 05:25 11:54 WBC RBC Hgb Hct MCV MCH MCHC RDW Plt Count Seg Neuts % (Manual) Lymphocytes % (Manual) Seg Neutrophils # Man Lymphocytes # (Manual) Monocytes # (Manual) PT INR D-Dimer ABG pH ABG pO2 ABG HCO3 ABG O2 Saturation ABG Base Excess ABG Hemoglobin Oxyhemoglobin Sodium 136 L Potassium Chloride Carbon Dioxide BUN 24 H Creatinine Glucose 117 H POC Glucose 108 H 107 H Lactic Acid Calcium 7.5 L Phosphorus Magnesium 1.60 L AST ALT Alkaline Phosphatase Lactate Dehydrogenase Troponin T C-Reactive Protein NT-Pro-B Natriuret Pep Total Protein Albumin LDL Cholesterol Direct Vitamin B12 Crossmatch 12/01/21 12/02/21 12/02/21 17:40 00:07 04:20 WBC RBC 2.92 L Hgb 7.7 L Hct 24.3 L MCV MCH 26 L MCHC RDW 20.5 H Plt Count Seg Neuts % (Manual) Lymphocytes % (Manual) Seg Neutrophils # Man Lymphocytes # (Manual) Monocytes # (Manual) PT INR D-Dimer ABG pH ABG pO2 ABG HCO3 ABG O2 Saturation ABG Base Excess ABG Hemoglobin Oxyhemoglobin Sodium Potassium Chloride Carbon Dioxide BUN Creatinine Glucose POC Glucose 123 H 110 H Lactic Acid Calcium Phosphorus Magnesium AST ALT Alkaline Phosphatase Lactate Dehydrogenase Troponin T C-Reactive Protein NT-Pro-B Natriuret Pep Total Protein Albumin LDL Cholesterol Direct Vitamin B12 Crossmatch 12/02/21 12/02/21 12/02/21 04:20 11:17 18:20 WBC RBC Hgb Hct MCV MCH MCHC RDW Plt Count Seg Neuts % (Manual) Lymphocytes % (Manual) Seg Neutrophils # Man Lymphocytes # (Manual) Monocytes # (Manual) PT INR D-Dimer ABG pH ABG pO2 ABG HCO3 ABG O2 Saturation ABG Base Excess ABG Hemoglobin Oxyhemoglobin Sodium 135 L Potassium Chloride Carbon Dioxide BUN 26 H Creatinine Glucose 121 H POC Glucose 117 H 113 H Lactic Acid Calcium 7.4 L Phosphorus Magnesium AST ALT Alkaline Phosphatase Lactate Dehydrogenase Troponin T C-Reactive Protein NT-Pro-B Natriuret Pep Total Protein Albumin LDL Cholesterol Direct Vitamin B12 Crossmatch 12/03/21 12/03/21 12/03/21 00:12 04:00 04:00 WBC RBC 2.99 L Hgb 7.8 L Hct 24.6 L MCV MCH 26 L MCHC RDW 20.2 H Plt Count Seg Neuts % (Manual) Lymphocytes % (Manual) Seg Neutrophils # Man Lymphocytes # (Manual) Monocytes # (Manual) PT INR D-Dimer ABG pH ABG pO2 ABG HCO3 ABG O2 Saturation ABG Base Excess ABG Hemoglobin Oxyhemoglobin Sodium 136 L Potassium Chloride Carbon Dioxide BUN 27 H Creatinine Glucose 133 H POC Glucose 121 H Lactic Acid Calcium 7.5 L Phosphorus Magnesium AST ALT Alkaline Phosphatase Lactate Dehydrogenase Troponin T C-Reactive Protein NT-Pro-B Natriuret Pep Total Protein Albumin LDL Cholesterol Direct Vitamin B12 Crossmatch 12/03/21 12/03/21 12/03/21 06:30 11:13 16:00 WBC RBC Hgb Hct MCV MCH MCHC RDW Plt Count Seg Neuts % (Manual) Lymphocytes % (Manual) Seg Neutrophils # Man Lymphocytes # (Manual) Monocytes # (Manual) PT INR D-Dimer ABG pH ABG pO2 ABG HCO3 ABG O2 Saturation ABG Base Excess ABG Hemoglobin Oxyhemoglobin Sodium Potassium Chloride Carbon Dioxide BUN Creatinine Glucose POC Glucose 129 H 125 H 125 H Lactic Acid Calcium Phosphorus Magnesium AST ALT Alkaline Phosphatase Lactate Dehydrogenase Troponin T C-Reactive Protein NT-Pro-B Natriuret Pep Total Protein Albumin LDL Cholesterol Direct Vitamin B12 Crossmatch 12/03/21 12/04/21 12/04/21 23:32 04:00 05:36 WBC RBC Hgb Hct MCV MCH MCHC RDW Plt Count Seg Neuts % (Manual) Lymphocytes % (Manual) Seg Neutrophils # Man Lymphocytes # (Manual) Monocytes # (Manual) PT INR D-Dimer ABG pH ABG pO2 ABG HCO3 ABG O2 Saturation ABG Base Excess ABG Hemoglobin Oxyhemoglobin Sodium Potassium 3.5 L Chloride Carbon Dioxide BUN 26 H Creatinine 0.5 L Glucose 151 H POC Glucose 133 H 142 H Lactic Acid Calcium 8.3 L Phosphorus Magnesium AST ALT Alkaline Phosphatase Lactate Dehydrogenase Troponin T C-Reactive Protein NT-Pro-B Natriuret Pep Total Protein Albumin LDL Cholesterol Direct Vitamin B12 Crossmatch 12/04/21 12/04/21 12/05/21 11:24 15:58 04:36 WBC RBC Hgb Hct MCV MCH MCHC RDW Plt Count Seg Neuts % (Manual) Lymphocytes % (Manual) Seg Neutrophils # Man Lymphocytes # (Manual) Monocytes # (Manual) PT INR D-Dimer ABG pH ABG pO2 ABG HCO3 ABG O2 Saturation ABG Base Excess ABG Hemoglobin Oxyhemoglobin Sodium Potassium Chloride Carbon Dioxide BUN 21 H Creatinine 0.5 L Glucose 119 H POC Glucose 130 H 111 H Lactic Acid Calcium 8.3 L Phosphorus Magnesium AST ALT Alkaline Phosphatase Lactate Dehydrogenase Troponin T C-Reactive Protein NT-Pro-B Natriuret Pep Total Protein Albumin LDL Cholesterol Direct Vitamin B12 Crossmatch 12/05/21 12/05/21 12/05/21 05:15 10:40 11:12 WBC RBC 2.98 L Hgb 8.1 L Hct 24.6 L MCV MCH 27 L MCHC RDW 20.8 H Plt Count Seg Neuts % (Manual) Lymphocytes % (Manual) Seg Neutrophils # Man Lymphocytes # (Manual) Monocytes # (Manual) PT INR D-Dimer ABG pH ABG pO2 ABG HCO3 ABG O2 Saturation ABG Base Excess ABG Hemoglobin Oxyhemoglobin Sodium Potassium Chloride Carbon Dioxide BUN Creatinine Glucose POC Glucose 107 H 110 H Lactic Acid Calcium Phosphorus Magnesium AST ALT Alkaline Phosphatase Lactate Dehydrogenase Troponin T C-Reactive Protein NT-Pro-B Natriuret Pep Total Protein Albumin LDL Cholesterol Direct Vitamin B12 Crossmatch 12/05/21 12/06/21 12/06/21 23:39 04:25 04:25 WBC RBC 2.95 L Hgb 7.9 L Hct 24.7 L MCV MCH 27 L MCHC RDW 20.9 H Plt Count Seg Neuts % (Manual) Lymphocytes % (Manual) Seg Neutrophils # Man Lymphocytes # (Manual) Monocytes # (Manual) PT INR D-Dimer ABG pH ABG pO2 ABG HCO3 ABG O2 Saturation ABG Base Excess ABG Hemoglobin Oxyhemoglobin Sodium Potassium Chloride Carbon Dioxide BUN 22 H Creatinine 0.5 L Glucose 136 H POC Glucose 118 H Lactic Acid Calcium 8.2 L Phosphorus Magnesium AST ALT Alkaline Phosphatase Lactate Dehydrogenase Troponin T C-Reactive Protein NT-Pro-B Natriuret Pep Total Protein Albumin LDL Cholesterol Direct Vitamin B12 Crossmatch 12/06/21 12/06/21 12/07/21 05:28 11:27 04:00 WBC RBC Hgb 7.2 L Hct 21.8 L MCV MCH MCHC RDW Plt Count Seg Neuts % (Manual) Lymphocytes % (Manual) Seg Neutrophils # Man Lymphocytes # (Manual) Monocytes # (Manual) PT INR D-Dimer ABG pH ABG pO2 ABG HCO3 ABG O2 Saturation ABG Base Excess ABG Hemoglobin Oxyhemoglobin Sodium Potassium Chloride Carbon Dioxide BUN Creatinine Glucose POC Glucose 142 H 126 H Lactic Acid Calcium Phosphorus Magnesium AST ALT Alkaline Phosphatase Lactate Dehydrogenase Troponin T C-Reactive Protein NT-Pro-B Natriuret Pep Total Protein Albumin LDL Cholesterol Direct Vitamin B12 Crossmatch 12/07/21 12/07/21 12/07/21 04:00 05:30 11:12 WBC RBC Hgb Hct MCV MCH MCHC RDW Plt Count Seg Neuts % (Manual) Lymphocytes % (Manual) Seg Neutrophils # Man Lymphocytes # (Manual) Monocytes # (Manual) PT INR D-Dimer ABG pH ABG pO2 ABG HCO3 ABG O2 Saturation ABG Base Excess ABG Hemoglobin Oxyhemoglobin Sodium Potassium Chloride Carbon Dioxide BUN 22 H Creatinine Glucose 119 H POC Glucose 121 H 124 H Lactic Acid Calcium 8.0 L Phosphorus Magnesium AST ALT Alkaline Phosphatase Lactate Dehydrogenase Troponin T C-Reactive Protein NT-Pro-B Natriuret Pep Total Protein Albumin LDL Cholesterol Direct Vitamin B12 Crossmatch 12/08/21 12/08/21 12/08/21 04:00 04:00 05:39 WBC RBC 2.81 L Hgb 7.7 L Hct 23.5 L MCV MCH MCHC RDW 21.2 H Plt Count Seg Neuts % (Manual) Lymphocytes % (Manual) Seg Neutrophils # Man Lymphocytes # (Manual) Monocytes # (Manual) PT INR D-Dimer ABG pH ABG pO2 ABG HCO3 ABG O2 Saturation ABG Base Excess ABG Hemoglobin Oxyhemoglobin Sodium 135 L Potassium Chloride Carbon Dioxide BUN 23 H Creatinine Glucose 109 H POC Glucose 112 H Lactic Acid Calcium Phosphorus Magnesium AST ALT Alkaline Phosphatase Lactate Dehydrogenase Troponin T C-Reactive Protein NT-Pro-B Natriuret Pep Total Protein Albumin LDL Cholesterol Direct Vitamin B12 Crossmatch 12/08/21 12/09/21 12/09/21 11:03 04:20 04:20 WBC RBC 2.67 L Hgb 7.6 L Hct 22.1 L MCV MCH MCHC RDW 20.8 H Plt Count Seg Neuts % (Manual) Lymphocytes % (Manual) Seg Neutrophils # Man Lymphocytes # (Manual) Monocytes # (Manual) PT INR D-Dimer ABG pH ABG pO2 ABG HCO3 ABG O2 Saturation ABG Base Excess ABG Hemoglobin Oxyhemoglobin Sodium 135 L Potassium Chloride 97.8 L Carbon Dioxide BUN 26 H Creatinine Glucose 119 H POC Glucose 108 H Lactic Acid Calcium 7.7 L Phosphorus Magnesium AST ALT Alkaline Phosphatase Lactate Dehydrogenase Troponin T C-Reactive Protein NT-Pro-B Natriuret Pep Total Protein Albumin LDL Cholesterol Direct Vitamin B12 Crossmatch 12/09/21 12/10/21 12/10/21 11:26 04:33 11:12 WBC RBC Hgb Hct MCV MCH MCHC RDW Plt Count Seg Neuts % (Manual) Lymphocytes % (Manual) Seg Neutrophils # Man Lymphocytes # (Manual) Monocytes # (Manual) PT INR D-Dimer ABG pH ABG pO2 ABG HCO3 ABG O2 Saturation ABG Base Excess ABG Hemoglobin Oxyhemoglobin Sodium 136 L Potassium Chloride Carbon Dioxide BUN 27 H Creatinine Glucose 117 H POC Glucose 110 H 117 H Lactic Acid Calcium 8.2 L Phosphorus Magnesium AST ALT Alkaline Phosphatase Lactate Dehydrogenase Troponin T C-Reactive Protein NT-Pro-B Natriuret Pep Total Protein Albumin LDL Cholesterol Direct Vitamin B12 Crossmatch 12/10/21 12/10/21 12/11/21 16:02 23:31 04:35 WBC RBC 2.57 L Hgb 7.0 L Hct 21.4 L MCV MCH 27 L MCHC RDW 21.1 H Plt Count Seg Neuts % (Manual) Lymphocytes % (Manual) Seg Neutrophils # Man Lymphocytes # (Manual) Monocytes # (Manual) PT INR D-Dimer ABG pH ABG pO2 ABG HCO3 ABG O2 Saturation ABG Base Excess ABG Hemoglobin Oxyhemoglobin Sodium Potassium Chloride Carbon Dioxide BUN Creatinine Glucose POC Glucose 137 H 111 H Lactic Acid Calcium Phosphorus Magnesium AST ALT Alkaline Phosphatase Lactate Dehydrogenase Troponin T C-Reactive Protein NT-Pro-B Natriuret Pep Total Protein Albumin LDL Cholesterol Direct Vitamin B12 Crossmatch 12/11/21 12/11/21 12/11/21 04:35 12:46 16:07 WBC RBC Hgb Hct MCV MCH MCHC RDW Plt Count Seg Neuts % (Manual) Lymphocytes % (Manual) Seg Neutrophils # Man Lymphocytes # (Manual) Monocytes # (Manual) PT INR D-Dimer ABG pH ABG pO2 ABG HCO3 ABG O2 Saturation ABG Base Excess ABG Hemoglobin Oxyhemoglobin Sodium 136 L Potassium Chloride Carbon Dioxide BUN 27 H Creatinine Glucose 112 H POC Glucose 115 H 111 H Lactic Acid Calcium 7.6 L Phosphorus Magnesium AST ALT Alkaline Phosphatase Lactate Dehydrogenase Troponin T C-Reactive Protein NT-Pro-B Natriuret Pep Total Protein Albumin LDL Cholesterol Direct Vitamin B12 Crossmatch 12/11/21 12/12/21 12/12/21 23:42 04:30 04:30 WBC RBC 2.60 L Hgb 7.1 L Hct 21.5 L MCV MCH 27 L MCHC RDW 20.3 H Plt Count Seg Neuts % (Manual) Lymphocytes % (Manual) Seg Neutrophils # Man Lymphocytes # (Manual) Monocytes # (Manual) PT INR D-Dimer ABG pH ABG pO2 ABG HCO3 ABG O2 Saturation ABG Base Excess ABG Hemoglobin Oxyhemoglobin Sodium 135 L Potassium Chloride 97.9 L Carbon Dioxide BUN 26 H Creatinine 0.5 L Glucose 138 H POC Glucose 115 H Lactic Acid Calcium 8.2 L Phosphorus Magnesium AST ALT Alkaline Phosphatase Lactate Dehydrogenase Troponin T C-Reactive Protein NT-Pro-B Natriuret Pep Total Protein Albumin LDL Cholesterol Direct Vitamin B12 Crossmatch 12/12/21 12/12/21 12/12/21 04:30 05:10 11:51 WBC RBC Hgb Hct MCV MCH MCHC RDW Plt Count Seg Neuts % (Manual) Lymphocytes % (Manual) Seg Neutrophils # Man Lymphocytes # (Manual) Monocytes # (Manual) PT INR D-Dimer ABG pH ABG pO2 ABG HCO3 ABG O2 Saturation ABG Base Excess ABG Hemoglobin Oxyhemoglobin Sodium Potassium Chloride Carbon Dioxide BUN Creatinine Glucose POC Glucose 119 H 119 H Lactic Acid Calcium Phosphorus Magnesium AST ALT Alkaline Phosphatase Lactate Dehydrogenase Troponin T C-Reactive Protein NT-Pro-B Natriuret Pep Total Protein Albumin LDL Cholesterol Direct Vitamin B12 Crossmatch See Detail 12/13/21 12/13/21 12/13/21 00:52 04:00 04:00 WBC RBC 2.73 L Hgb 7.4 L Hct 22.8 L MCV MCH 27 L MCHC RDW 20.5 H Plt Count Seg Neuts % (Manual) Lymphocytes % (Manual) Seg Neutrophils # Man Lymphocytes # (Manual) Monocytes # (Manual) PT INR D-Dimer ABG pH ABG pO2 ABG HCO3 ABG O2 Saturation ABG Base Excess ABG Hemoglobin Oxyhemoglobin Sodium 134 L Potassium Chloride 96.7 L Carbon Dioxide BUN 23 H Creatinine 0.5 L Glucose 131 H POC Glucose 131 H Lactic Acid Calcium 8.1 L Phosphorus Magnesium AST ALT Alkaline Phosphatase Lactate Dehydrogenase Troponin T C-Reactive Protein NT-Pro-B Natriuret Pep Total Protein Albumin LDL Cholesterol Direct Vitamin B12 Crossmatch 12/13/21 12/13/21 12/13/21 05:23 12:11 17:18 WBC RBC Hgb Hct MCV MCH MCHC RDW Plt Count Seg Neuts % (Manual) Lymphocytes % (Manual) Seg Neutrophils # Man Lymphocytes # (Manual) Monocytes # (Manual) PT INR D-Dimer ABG pH ABG pO2 ABG HCO3 ABG O2 Saturation ABG Base Excess ABG Hemoglobin Oxyhemoglobin Sodium Potassium Chloride Carbon Dioxide BUN Creatinine Glucose POC Glucose 121 H 143 H 148 H Lactic Acid Calcium Phosphorus Magnesium AST ALT Alkaline Phosphatase Lactate Dehydrogenase Troponin T C-Reactive Protein NT-Pro-B Natriuret Pep Total Protein Albumin LDL Cholesterol Direct Vitamin B12 Crossmatch 12/14/21 12/14/21 12/14/21 00:54 04:20 04:20 WBC RBC 2.39 L Hgb 6.5 L Hct 20.3 L MCV MCH 27 L MCHC RDW 20.3 H Plt Count Seg Neuts % (Manual) Lymphocytes % (Manual) Seg Neutrophils # Man Lymphocytes # (Manual) Monocytes # (Manual) PT INR D-Dimer ABG pH ABG pO2 ABG HCO3 ABG O2 Saturation ABG Base Excess ABG Hemoglobin Oxyhemoglobin Sodium 130 L Potassium Chloride 93.5 L Carbon Dioxide BUN 25 H Creatinine Glucose 123 H POC Glucose 123 H Lactic Acid Calcium 8.0 L Phosphorus Magnesium AST ALT Alkaline Phosphatase Lactate Dehydrogenase Troponin T C-Reactive Protein NT-Pro-B Natriuret Pep Total Protein Albumin LDL Cholesterol Direct Vitamin B12 Crossmatch 12/14/21 12/14/21 12/14/21 05:06 08:17 10:30 WBC RBC Hgb Hct MCV MCH MCHC RDW Plt Count Seg Neuts % (Manual) Lymphocytes % (Manual) Seg Neutrophils # Man Lymphocytes # (Manual) Monocytes # (Manual) PT INR D-Dimer ABG pH ABG pO2 ABG HCO3 ABG O2 Saturation ABG Base Excess ABG Hemoglobin Oxyhemoglobin Sodium Potassium Chloride Carbon Dioxide BUN Creatinine Glucose POC Glucose 131 H 119 H Lactic Acid Calcium Phosphorus Magnesium AST ALT Alkaline Phosphatase Lactate Dehydrogenase Troponin T C-Reactive Protein NT-Pro-B Natriuret Pep Total Protein Albumin LDL Cholesterol Direct Vitamin B12 Crossmatch See Detail 12/14/21 12/14/21 12/14/21 12:15 16:37 23:27 WBC RBC Hgb Hct MCV MCH MCHC RDW Plt Count Seg Neuts % (Manual) Lymphocytes % (Manual) Seg Neutrophils # Man Lymphocytes # (Manual) Monocytes # (Manual) PT INR D-Dimer ABG pH ABG pO2 ABG HCO3 ABG O2 Saturation ABG Base Excess ABG Hemoglobin Oxyhemoglobin Sodium Potassium Chloride Carbon Dioxide BUN Creatinine Glucose POC Glucose 147 H 141 H 130 H Lactic Acid Calcium Phosphorus Magnesium AST ALT Alkaline Phosphatase Lactate Dehydrogenase Troponin T C-Reactive Protein NT-Pro-B Natriuret Pep Total Protein Albumin LDL Cholesterol Direct Vitamin B12 Crossmatch 12/15/21 12/15/21 12/15/21 05:00 07:00 07:00 WBC 12.3 H RBC 3.27 L Hgb 8.8 L Hct 27.5 L D MCV MCH 27 L MCHC RDW 19.0 H Plt Count Seg Neuts % (Manual) Lymphocytes % (Manual) Seg Neutrophils # Man Lymphocytes # (Manual) Monocytes # (Manual) PT INR D-Dimer ABG pH ABG pO2 ABG HCO3 ABG O2 Saturation ABG Base Excess ABG Hemoglobin Oxyhemoglobin Sodium 134 L Potassium Chloride 95.7 L Carbon Dioxide BUN 28 H Creatinine Glucose 129 H POC Glucose 129 H Lactic Acid Calcium 8.2 L Phosphorus Magnesium AST ALT Alkaline Phosphatase Lactate Dehydrogenase Troponin T C-Reactive Protein NT-Pro-B Natriuret Pep Total Protein Albumin LDL Cholesterol Direct Vitamin B12 Crossmatch 12/15/21 12/15/21 12/15/21 11:18 16:00 23:39 WBC RBC Hgb Hct MCV MCH MCHC RDW Plt Count Seg Neuts % (Manual) Lymphocytes % (Manual) Seg Neutrophils # Man Lymphocytes # (Manual) Monocytes # (Manual) PT INR D-Dimer ABG pH ABG pO2 ABG HCO3 ABG O2 Saturation ABG Base Excess ABG Hemoglobin Oxyhemoglobin Sodium Potassium Chloride Carbon Dioxide BUN Creatinine Glucose POC Glucose 139 H 137 H 146 H Lactic Acid Calcium Phosphorus Magnesium AST ALT Alkaline Phosphatase Lactate Dehydrogenase Troponin T C-Reactive Protein NT-Pro-B Natriuret Pep Total Protein Albumin LDL Cholesterol Direct Vitamin B12 Crossmatch 12/16/21 12/16/21 12/16/21 05:24 10:21 10:21 WBC 15.3 H RBC 3.24 L Hgb 8.9 L Hct 27.7 L MCV MCH MCHC RDW 19.0 H Plt Count Seg Neuts % (Manual) Lymphocytes % (Manual) Seg Neutrophils # Man Lymphocytes # (Manual) Monocytes # (Manual) PT INR D-Dimer ABG pH ABG pO2 ABG HCO3 ABG O2 Saturation ABG Base Excess ABG Hemoglobin Oxyhemoglobin Sodium 131 L Potassium 3.5 L Chloride 92.7 L Carbon Dioxide BUN 36 H Creatinine Glucose 160 H POC Glucose 121 H Lactic Acid Calcium Phosphorus Magnesium 1.60 L AST ALT Alkaline Phosphatase Lactate Dehydrogenase Troponin T C-Reactive Protein NT-Pro-B Natriuret Pep Total Protein Albumin LDL Cholesterol Direct Vitamin B12 Crossmatch 12/16/21 12/16/21 12/16/21 11:21 18:28 20:52 WBC RBC Hgb Hct MCV MCH MCHC RDW Plt Count Seg Neuts % (Manual) Lymphocytes % (Manual) Seg Neutrophils # Man Lymphocytes # (Manual) Monocytes # (Manual) PT INR D-Dimer ABG pH 7.479 H ABG pO2 79.3 L ABG HCO3 27.3 H ABG O2 Saturation ABG Base Excess 3.6 H ABG Hemoglobin 9.1 L Oxyhemoglobin 94.9 L Sodium Potassium Chloride Carbon Dioxide BUN Creatinine Glucose POC Glucose 153 H 132 H Lactic Acid Calcium Phosphorus Magnesium AST ALT Alkaline Phosphatase Lactate Dehydrogenase Troponin T C-Reactive Protein NT-Pro-B Natriuret Pep Total Protein Albumin LDL Cholesterol Direct Vitamin B12 Crossmatch 12/16/21 12/17/21 12/17/21 23:30 04:25 04:25 WBC 12.3 H RBC 2.16 L Hgb 6.0 L Hct 18.1 L* D MCV MCH MCHC RDW 19.4 H Plt Count Seg Neuts % (Manual) Lymphocytes % (Manual) Seg Neutrophils # Man Lymphocytes # (Manual) Monocytes # (Manual) PT INR D-Dimer ABG pH ABG pO2 ABG HCO3 ABG O2 Saturation ABG Base Excess ABG Hemoglobin Oxyhemoglobin Sodium 132 L Potassium 3.2 L Chloride 112.0 H Carbon Dioxide BUN 32 H Creatinine Glucose 122 H POC Glucose 137 H Lactic Acid Calcium 6.8 L D Phosphorus Magnesium AST ALT Alkaline Phosphatase Lactate Dehydrogenase Troponin T C-Reactive Protein NT-Pro-B Natriuret Pep Total Protein Albumin LDL Cholesterol Direct Vitamin B12 Crossmatch 12/17/21 12/17/21 12/17/21 05:30 11:49 14:45 WBC RBC Hgb 9.7 L D Hct MCV MCH MCHC RDW Plt Count Seg Neuts % (Manual) Lymphocytes % (Manual) Seg Neutrophils # Man Lymphocytes # (Manual) Monocytes # (Manual) PT INR D-Dimer ABG pH ABG pO2 ABG HCO3 ABG O2 Saturation ABG Base Excess ABG Hemoglobin Oxyhemoglobin Sodium Potassium Chloride Carbon Dioxide BUN Creatinine Glucose POC Glucose 137 H 143 H Lactic Acid Calcium Phosphorus Magnesium AST ALT Alkaline Phosphatase Lactate Dehydrogenase Troponin T C-Reactive Protein NT-Pro-B Natriuret Pep Total Protein Albumin LDL Cholesterol Direct Vitamin B12 Crossmatch 12/17/21 12/18/21 12/18/21 17:01 05:04 05:04 WBC 13.8 H RBC 3.44 L Hgb 9.9 L Hct 28.8 L MCV MCH MCHC RDW 18.1 H Plt Count Seg Neuts % (Manual) Lymphocytes % (Manual) Seg Neutrophils # Man Lymphocytes # (Manual) Monocytes # (Manual) PT INR D-Dimer ABG pH ABG pO2 ABG HCO3 ABG O2 Saturation ABG Base Excess ABG Hemoglobin Oxyhemoglobin Sodium 132 L Potassium Chloride 97.4 L Carbon Dioxide BUN 38 H Creatinine Glucose 134 H POC Glucose 132 H Lactic Acid Calcium Phosphorus Magnesium AST ALT Alkaline Phosphatase Lactate Dehydrogenase Troponin T C-Reactive Protein NT-Pro-B Natriuret Pep Total Protein Albumin LDL Cholesterol Direct Vitamin B12 Crossmatch 12/18/21 12/18/21 12/18/21 05:28 10:57 16:27 WBC RBC Hgb Hct MCV MCH MCHC RDW Plt Count Seg Neuts % (Manual) Lymphocytes % (Manual) Seg Neutrophils # Man Lymphocytes # (Manual) Monocytes # (Manual) PT INR D-Dimer ABG pH ABG pO2 ABG HCO3 ABG O2 Saturation ABG Base Excess ABG Hemoglobin Oxyhemoglobin Sodium Potassium Chloride Carbon Dioxide BUN Creatinine Glucose POC Glucose 118 H 132 H 130 H Lactic Acid Calcium Phosphorus Magnesium AST ALT Alkaline Phosphatase Lactate Dehydrogenase Troponin T C-Reactive Protein NT-Pro-B Natriuret Pep Total Protein Albumin LDL Cholesterol Direct Vitamin B12 Crossmatch 12/19/21 12/19/21 12/19/21 00:02 04:41 04:41 WBC 16.0 H RBC 3.45 L Hgb 9.7 L Hct 29.1 L MCV MCH MCHC RDW 17.8 H Plt Count Seg Neuts % (Manual) Lymphocytes % (Manual) Seg Neutrophils # Man Lymphocytes # (Manual) Monocytes # (Manual) PT INR D-Dimer ABG pH ABG pO2 ABG HCO3 ABG O2 Saturation ABG Base Excess ABG Hemoglobin Oxyhemoglobin Sodium 133 L Potassium Chloride 97.9 L Carbon Dioxide BUN 36 H Creatinine 0.5 L Glucose 126 H POC Glucose 127 H Lactic Acid Calcium 8.3 L Phosphorus Magnesium AST ALT Alkaline Phosphatase Lactate Dehydrogenase Troponin T C-Reactive Protein NT-Pro-B Natriuret Pep Total Protein Albumin LDL Cholesterol Direct Vitamin B12 Crossmatch 12/19/21 12/19/21 12/19/21 05:26 12:20 16:43 WBC RBC Hgb Hct MCV MCH MCHC RDW Plt Count Seg Neuts % (Manual) Lymphocytes % (Manual) Seg Neutrophils # Man Lymphocytes # (Manual) Monocytes # (Manual) PT INR D-Dimer ABG pH ABG pO2 ABG HCO3 ABG O2 Saturation ABG Base Excess ABG Hemoglobin Oxyhemoglobin Sodium Potassium Chloride Carbon Dioxide BUN Creatinine Glucose POC Glucose 119 H 145 H 126 H Lactic Acid Calcium Phosphorus Magnesium AST ALT Alkaline Phosphatase Lactate Dehydrogenase Troponin T C-Reactive Protein NT-Pro-B Natriuret Pep Total Protein Albumin LDL Cholesterol Direct Vitamin B12 Crossmatch 12/19/21 12/20/21 12/20/21 23:30 04:54 04:54 WBC 12.3 H RBC 3.54 L Hgb 10.0 L Hct 29.5 L MCV MCH MCHC RDW 17.8 H Plt Count Seg Neuts % (Manual) 88.0 H Lymphocytes % (Manual) 6.0 L Seg Neutrophils # Man 10.8 H Lymphocytes # (Manual) 0.7 L Monocytes # (Manual) PT INR D-Dimer ABG pH ABG pO2 ABG HCO3 ABG O2 Saturation ABG Base Excess ABG Hemoglobin Oxyhemoglobin Sodium 131 L Potassium Chloride 96.2 L Carbon Dioxide BUN 36 H Creatinine 0.5 L Glucose 130 H POC Glucose 117 H Lactic Acid Calcium Phosphorus Magnesium AST ALT Alkaline Phosphatase Lactate Dehydrogenase Troponin T C-Reactive Protein NT-Pro-B Natriuret Pep Total Protein Albumin LDL Cholesterol Direct Vitamin B12 Crossmatch 12/20/21 12/20/21 12/20/21 05:20 11:51 17:30 WBC RBC Hgb Hct MCV MCH MCHC RDW Plt Count Seg Neuts % (Manual) Lymphocytes % (Manual) Seg Neutrophils # Man Lymphocytes # (Manual) Monocytes # (Manual) PT INR D-Dimer ABG pH ABG pO2 ABG HCO3 ABG O2 Saturation ABG Base Excess ABG Hemoglobin Oxyhemoglobin Sodium Potassium Chloride Carbon Dioxide BUN Creatinine Glucose POC Glucose 126 H 119 H 127 H Lactic Acid Calcium Phosphorus Magnesium AST ALT Alkaline Phosphatase Lactate Dehydrogenase Troponin T C-Reactive Protein NT-Pro-B Natriuret Pep Total Protein Albumin LDL Cholesterol Direct Vitamin B12 Crossmatch 12/21/21 12/21/21 12/21/21 00:45 04:21 04:21 WBC RBC 3.47 L Hgb 9.4 L Hct 29.2 L MCV MCH 27 L MCHC RDW 18.1 H Plt Count Seg Neuts % (Manual) Lymphocytes % (Manual) Seg Neutrophils # Man Lymphocytes # (Manual) Monocytes # (Manual) PT INR D-Dimer ABG pH ABG pO2 ABG HCO3 ABG O2 Saturation ABG Base Excess ABG Hemoglobin Oxyhemoglobin Sodium 134 L Potassium Chloride Carbon Dioxide BUN 35 H Creatinine 0.5 L Glucose 122 H POC Glucose 125 H Lactic Acid Calcium 8.2 L Phosphorus Magnesium AST ALT Alkaline Phosphatase Lactate Dehydrogenase Troponin T C-Reactive Protein NT-Pro-B Natriuret Pep Total Protein Albumin LDL Cholesterol Direct Vitamin B12 Crossmatch 12/21/21 12/21/21 12/21/21 05:38 11:29 16:16 WBC RBC Hgb Hct MCV MCH MCHC RDW Plt Count Seg Neuts % (Manual) Lymphocytes % (Manual) Seg Neutrophils # Man Lymphocytes # (Manual) Monocytes # (Manual) PT INR D-Dimer ABG pH ABG pO2 ABG HCO3 ABG O2 Saturation ABG Base Excess ABG Hemoglobin Oxyhemoglobin Sodium Potassium Chloride Carbon Dioxide BUN Creatinine Glucose POC Glucose 127 H 121 H 113 H Lactic Acid Calcium Phosphorus Magnesium AST ALT Alkaline Phosphatase Lactate Dehydrogenase Troponin T C-Reactive Protein NT-Pro-B Natriuret Pep Total Protein Albumin LDL Cholesterol Direct Vitamin B12 Crossmatch 12/22/21 12/22/21 04:58 04:58 WBC RBC Hgb Hct MCV MCH MCHC RDW 18.5 H Plt Count Seg Neuts % (Manual) Lymphocytes % (Manual) Seg Neutrophils # Man Lymphocytes # (Manual) Monocytes # (Manual) PT INR D-Dimer ABG pH ABG pO2 ABG HCO3 ABG O2 Saturation ABG Base Excess ABG Hemoglobin Oxyhemoglobin Sodium 130 L Potassium Chloride 97.8 L Carbon Dioxide BUN 31 H Creatinine 0.5 L Glucose 122 H POC Glucose Lactic Acid Calcium 7.9 L Phosphorus Magnesium AST ALT Alkaline Phosphatase Lactate Dehydrogenase Troponin T C-Reactive Protein NT-Pro-B Natriuret Pep Total Protein Albumin LDL Cholesterol Direct Vitamin B12 Crossmatch Allied health notes reviewed: nursing
[2021-12-22] MEDS: POLYETHYLENE GLYCOL 3350 17 GM POWDER PO SCH (18:48)
--- NOTE | 2021-12-22 18:59 | Progress Note ---
<MAYCOLJASBIR MorelMarissa - Last Filed: 12/22/21 19:00> Assessment and Plan Assessment and plan: This is a 81-year-old female with known history of diabetes mellitus, hypertension, PPM, and arthritis admitted for sepsis and acute hypoxia respiratory failure 2/2 bilateral pneumonia requiring intubation and ventilatory support Assessment and Plan Neuro : Anxiety, chronic pain -Neurology consulted, appreciate recommendations -CT brain showed no acute events -EEG interpreted as abnormal record due to diffuse slowing noted throughout the recording, suggestive of encephalopathic process and/or drug effect, possibilities of postictal state cannot be totally excluded. Clinical correlatio n is in order -MRI brain not obtained-> patient has metal in her body -Repeat CT head with no acute findings -Reorientation as needed -Ammonia 42, B12 1823, TSH 1.5 -BuSpar, Seroquel, [place], gabapentin -xanax changed to PRN, fent patch dc 12/14 -prn xanax and Dilaudid Cardio: Acute Heart failure with reduced EF, h/o chronic heart block s/p PPM, HTN, CAD s/p PCI (2004), Moderate pulmonary HTN, cardiomyopathy -s/p vasopressor support with levophed -11/04 echocardiogram shows EF 30 to 35%, Moderate pulmonary HTN RVSP 49 -3/4 echo with 35-40% EF -Cardiology consulted, appreciate recommendations -Continue beta-charleen and statin therapy -Midodrine (titrate as needed) -Not on aspirin due to allergy -Blood pressure monitoring per protocol -As needed nitroglycerin Resp: Acute hypoxic respiratory failure secondary to bilateral pneumonia, bilateral pleural effusion. Right pneumothorax (resolved) -COVID-19 PCR negative -Intubated on 11/06 with 6.00 ETT at 18 at the lip and changed over bougie on 11/11-7.50 ETT at 20 at the lip -See RT notes for titration -PSV as tolerated -Surgery consult for trach -Received trach/PEG on 11/26 -S/p bedside bronchoscopy on 11/11 complicated by pneumothorax -S/p chest tube placement for right pneumothorax and dislodgment by patient on 11/15 -ABG/CXR per [facility] -VAP bundle -Right chest wall ultrasound showed pleural effusion s/p chest tube -12/11 US thoracentesis removed 1L fluid -SPO2 monitoring -Mucomyst every 8 -Albuterol every 8 GI: S/p GI bleed, duodenal ulcer, transaminitis -GI consulted, appreciate recommendations -Nutrition consult for tube feeding -BR: Senokot, MiraLAX -s/p peg 11/26 -H2 charleen -Carafate -24-hour +547 ml -10/2021 Gastric occult positive -> EGD-> duodenal ulcer -12/14 occult stool positive : Urinary retention (resolved), hyponatremia, hypochloremia -Strict intake and output -Trend BMP ID: Septic shock (POA-resolved), bilateral pneumonia, MRSA bacteremia/pna -Infectious disease consulted, appreciate recommendations -COVID-19 PCR negative -Presented with fevers, leukocytosis and hypotension -11/04 blood cultures positive with a group B strep bacteremia 12/19 however repeat blood cultures on the with no growth to date -Echo showed no evidence of vegetation -repeat echo showed EF 35-40 % with no vegetations -ABX therapy: IV vancomycin -Monitor WBC and fever curve -Bedside bronchoscopy for mucous plug on CXR 11/11 -f/u blood cultures Heme: Acute DVT in the right external iliac vein, common femoral vein, superior aspect of femoral vein, Acute microcytic anemia -Evidenced on bilateral upper lower extremity ultrasound -S/p 7 unit PRBC -Trend CBC -Transfuse for hemoglobin less than 7 -heparin gtt dc d/t anemia -S/p IVC filter Endo: h/o DM and hypothyroidism -Continue home Synthroid -SSI -Accu-Cheks every 6 -Avoid hypoglycemia The high probability of a clinically significant, sudden or life threatening deterioration of the [multi] system(s) required my full and direct attention, intervention and personal management. The aggregate critical care time was [60] minutes. This time is in addition to time spent performing reported procedures but includes the following: [x] Data Review and interpretation [x] Patient assessment and monitoring of vital signs [x] Documentation [x] Medication orders and management Disposition Plan: icu Total Time Spent with Patient (Minutes): 60 History Interval history: This is an 82-year-old female with DM, HTN , CHB s/p PPM, CAD s/p PCI and ar thritis who presented to the emergency department on 11/04 for shortness of breath ongoing for the past 3 days, cough and according to family a fever of 102.2. Upon arrival of EMS patient was found to be tachypneic and hypoxic with SPO2 of 76% on room air which later improved to 88% on nonrebreather. Work-up in the emergency department included a CXR which showed bilateral interstitial pulmonary edema with bilateral pleural effusions and bibasilar opacities, leukocytosis and anemia with a hemoglobin of 6.1. Patient was admitted to the hospitalist service with acute anemia, acute hypoxic respiratory failure, bilateral pneumonia and COVID-19 PUI with consults to pulmonology, infectious disease and later cardiology. Patient was eventually intubated in the emergency department on 11/06. Hospital Course to date: 11/04/2021: Empiric therapy with iv levaquin/vancomycin. COVID PCR pending. Will consult ID. PCCM consulted, will follow recs. Hypotensive this AM, ordered bolus and fluids at 150 cc/hr. May require pressor support if bp does not improve. 11/05/2021: GBS on bcx +, currently on rocephin IV. Currently on bipap due to respiratory distress overnight. Worsening BL opacities on CXR. May be volume overload vs pneumonia. Unfortunately bp too low for lasix at this point. WIll continue levophed and bipap. Once able to tolerate, may do trial of albumin/lasix. Call attempt made to Niraj, no response. Will try again tomorrow to update. 11/06/2021: Decompensated overnight requiring intubation. CXR shows worsening interstitial infiltrates. Currenlty on dopamine, levophed, vasopressin. PICC line ordered. Advised RN to place gamble for I/O monitoring. Would benefit from diuresis but very volume overloaded. Prognosis guarded 11/08: Off sedation this am, remains unresponsive only grimace to pain. Hold all sedatives agents for now, patient is off pressors this am. Hypernatremia from today's lab- D5W X1bag, and low K repleted, repeat lab in the am. Severe constipation also noted from KUB, BR added. 11/09: Sudden SPO2 drop in the 60s this am. Patient was manually bagged and deep suctioned. Patient is currently stable on the vent, repeat CXR with no significant change. D/w CCM Mucomyst and brochodilator added. Patient mentation is unchanged, continue to hold off on sedative agents. Neurology consulted. 11/10: Acute DVT noted on bilateral lower extremity Doppler ultrasound therefore she was started on Lovenox treatment dose. Failed SBT. Hypernatremia and hyperchloremia noted, free water flush adjusted. 11/11: Patient noted to be febrile with increasing of the cytosis, UA/BC sent and CXR ordered. ID escalated antibiotics to cefepime. CXR demonstrated mucous plug, bedside bronchoscopy was performed and O ETT was changed over bougie from 6 cm to 7.5. Patient was noted to have a pneumothorax postprocedure and chest tube was placed. Family updated by [facility]. Free water flush increased and will add Jaswant supplementation. 11/12: Patient not noted to follow commands, hypernatremia worsen/persist, increasing free water flush, potassium and magnesium and phosphorus repleted. Hemoglobin noted to be 7.1/24.5 from 7.03/12 yesterday. We will continue to trend and monitor. Vent changes per [facility]. Repeat CXR showed no residual pneumothorax. Consider waterseal tomorrow. Given persistent leukocytosis antibiotics escalated to cefepime per ID. 11/13: Remains on cefepime and vancomycin, vent changes per [facility]. Anemia noted and given 1 unit PRBC. And beta-charleen held in setting of Levophed drip infusing. Remains on fentanyl drip. 11/14: Patient put on CPAP trial by [facility], will continue chest tube until after extubation. Will rest on assist control. CT brain was cancelled by shingle grader and reordered. 11/15: Patient removed chest tube overnight. Will obtain cxr. remains on low dose levo. CTH completed with no acute findings. RT to place on CPAP. 11/16: Hypernatremia/hyperchloremia noted on the increase of day water flushes. Anemia noted and ordered PRBC. asked RT to place on cpap but not done yet 11/17: Patient remains on the vent, awake and following commands. H&H stable s/p 2units PRBCs. GI on consult, no intervention at this time. Will continue protonix gtt and serial H&H Q6hrs. Keep patient NPO for now, D5w added for hypernatremia and NPO status. Plan for IVC filter placement today by Vascular. 11/18: Patient is s/p IVC filter. H&H continue to trend down, hbg 6.1 this am, 1 unit of PRBCs ordered. Plan for possible EGD today by GI. Keep patient NPO, continue PPI drip and serial H&H Q6hrs. Electrolytes repleted, repeat lab in the am 11/19: S/p EGD- larger duodenal ulcer noted, see operative note. GI recommendations noted also noted. H&H stable this am. Keep patient on protonix gtt for now. Will keep patient NPO, continue IVF and serial H&H for now. Electrolytes repleted, repeat labs in the am 11/20: Very agitated and restless this am, fentanyl gtt resumed. Patient remains on protonix gtt, H&H remains stable. Will switch protonix gtt to IV BID, continue carafate and okay to resume meds at this time. Will F/u with GI to see if TF can be resumed. Gamble was reinserted overnight for retention. Electrolytes repleted, repeat in the am. Plan for possible PST today for possible extubation per CCM. 11/21: Patient is now on seroquel and patient's home buspar resumed. Patient more calm this morning, fentanyl gtt is off. H&H remains stable and patient is tolerating TF. Patient had a runs of Vtach/PVCs this am, BB added per Cardio. Continue daily PS and wean trial for possible extubation. 11/22: Back on fentanyl gtt overnight , RASS o to -1, following commands. Patient failed PST this am due to increased work of breathing and low SPO2, ABG pending. Patient is also with worsen pitting edema, lasix is still on hold. Will discuss with cardio and CCM to possibly resume lasix. 11/23: MARIA DEL CARMEN overnight. Patient failed PST again this am. Per CCM plan for possible trach and PEG, hold off on IV lasix for now. General surgery consulted and henna leon is aware of possible Trach and PEG. 11/24: Trach/PEG pending this week, continue SBT/SAT as tolerated. No acute events reported overnight. 11/25: Patient was n.p.o. overnight and will remain n.p.o. tonight for trach/PEG tomorrow morning. She failed to support trial again. KUB obtained due to sean colbert. 11/26: Patient scheduled for tracheostomy and PEG tube placement today, has been n.p.o. since midnight. No acute events reported overnight. [facility] ordered simethicone scheduled. 11/27: No acute events reported overnight, patient received trach/PEG yesterday. Has been on feedings since last night. Still awaiting LTAC placement. 11/28: Patient magnesium repleted, repeat a.m. labs, SBT 11/29: Patient complains of chest pain but ECG obtained which showed no acute findings, ordered troponin. Patient failed CPAP yesterday and was trialed again today. levophed was restarted but will aggressively wean 11/30: Patient failed SBT. Continue supportive care. Started gabapentin today 12/01: MARIA DEL CARMEN overnight. Continue daily PST. Case management to arrange possible placement 12/02: Report of dark stools overnight, patient is hemodynamically stable. H&H stable, patient is on PPI. Will continue to trend H&H. Continue daily PST as tolerated. Awaiting LTAC vs SNF placement. 12/03: Hypotensive overnight, requiring low dose pressors. S/p X3 days of gentle diurese. Will continue to monitor, wean off pressors as tolerated for MAP of 65. Patient Failed PST yesterday, case management to follow up with insurance for possible LTAC placement. Continue daily PST as tolerated. PT eval and treat ordered. 12/04: Increased agitation and anxiety overnight, remains on buspar and seroquel, trazadone added to promote rest. Patient is now working with PT, keep patient engage and awake during the day so she can rest at night. No BM for over 5 days, BR was adjusted. Patient did not tolerate PST again yesterday, continue daily PST as tolerated. Continue to titrate pressor for MAP above 65. Pending possible LTAC placement, case management to arrange. 12/05: Still not getting much rest overnight, will add melatonin for sleep. Continue to engage patient during the day and promote rest at night. TF was held due to concern for possible bleeding, H&H remains stable and stools normal this am. Resume TF and continue PPI and carafate. Remains on low dose levophed, titrate as tolerated. Continue daily PST. Possible LTAC placement, awaiting approval. 12/06: MARIA DEL CARMEN overnight. Patient rested overnight. Continue supportive measures. Daily PST as tolerated. Awaiting possible LTAC placement 12/07: MARIA DEL CARMEN overnight. Plan for Tpiece trial today. Continue current supportive measures. Possible LTAC placement 12/08: Patient placed on pressure support trial again today, started on Xanax, no acute events reported overnight. Awaiting insurance approval for LTAC. 12/09: Levophed discontinued, LTAC transfer denied, started on midodrine and Lasix, ultrasound chest pending, started on Xanax 0.[address] De León updated family at bedside today. Started on Dilaudid every 3 hours as needed. 12/10: Patient placed on CPAP trial this morning, no acute events reported overnight. Will order ultrasound-guided thoracentesis. 12/11: Patient had a thoracentesis today, will decrease Xanax dosage and continue midodrine and diuresing. Patient failed CPAP today. 12/12: Patient not tolerate CPAP trials today, no acute events reported overnight 12/13: No acute events overnight. continue PSV trials as tolerated. Daughter updated at bedside 12/14: Patient noted to be anemic today, ordered gastric occult. Patient seems to be oversedated therefore Xanax changed to as needed and fentanyl patch d iscontinued. We will continue to monitor hyponatremia. 12/15: MARIA DEL CARMEN overnight. s/p 1unit of PRBCs, H&H stable this am, no signs of any active bleeding. Continue daily PST as tolerated. Awaiting placement. 12/16: Hypertensive this am, Midodrine decreased. Continue daily PST. MARIA DEL CARMEN overnight 12/17: Patient Hgb dropped to 6 this am, no s/s of any active bleeding, VSS. Patient received 1unit of PRBC, will continue to trend H&H. Patient was pancultured and back on IV Abx due to persistent fevers yesterday. ID is also back on the case. Continue IV Abx per ID and f/u on cultures data for sensitivity. Patient also failed PST yesterday, continue daily PST as tolerated. Electrolytes repleted, repeat labs in the am. 12/18: Patient blood cultures is growing GPC 4 out 4 bottles. PICC line D/Rivas, patient is already on IV Abx-cefepine and Vanc and ID is following. Patient remains hemodynamically stable. Daily PST as tolerated adn PRN Benzo for anxiety. 12/19: MARIA DEL CARMEN overnight. Culture data noted, continue IV Abx per ID. Orders placed for repeat Bculture. Gamble D/C overnight, patient is voiding. Check bladder scan as needed for retention. Patient failed PST again today. Continue daily PST as tolerated. 12/20: Fevers improved, Cultures +MRSA, on Vanco per ID. Repeat 2D Echo to r/o endocarditis. Patient continue to fail PST, PEEP increased to 8 today. Continue pulmonary hygiene and vent wean per [facility]. Sodium tab added for hyponatremia. 12/22: Patient on pressure support trial for approximately 4 hours today, midodrine dosage increased due to hypotension. Lasix discontinued. Hospitalist Physical - Constitutional Vitals: Temp Pulse Resp BP Pulse Ox 98.1 F 69 13 99/51 98 12/22/21 16:00 12/22/21 18:30 12/22/21 18:30 12/22/21 18:30 12/22/21 18:30 General appearance: Present: no acute distress, other (Trach and on the vent) - EENT Eyes: Present: PERRL, EOM intact ENT: hearing intact, clear oral mucosa, dentition normal - Neck Neck: Present: normal ROM - Respiratory Respiratory effort: normal Respiratory: bilateral: diminished - Cardiovascular Rhythm: regular Heart Sounds: Present: S1 & S2. Absent: systolic murmur, diastolic murmur - Extremities Extremities: no ischemia, pulses intact, pulses symmetrical, normal temperature, normal color Extremity abnormal: edema Peripheral Pulses: within normal limits - Abdominal General gastrointestinal: soft, non-tender, non-distended, normal bowel sounds - Integumentary Integumentary: Present: warm, dry - Psychiatric Psychiatric: cooperative - Neurologic Neurologic: CNII-XII intact, no focal deficits, moves all extremities - Allied Health Allied health notes reviewed: nursing, RT, social work HEART Score - HEART Score Troponin: Troponin T 0.045 ng/mL (0.00-0.029) H 11/29/21 20:15 Results - Labs CBC & Chem 7: 12/22/21 04:58 12/22/21 04:58 Labs: Laboratory Last Values WBC 10.8 K/mm3 (4.5-11.0) 12/22/21 04:58 RBC 3.80 M/mm3 (3.65-5.03) 12/22/21 04:58 Hgb 10.8 gm/dl (10.1-14.3) 12/22/21 04:58 Hct 32.2 % (30.3-42.9) 12/22/21 04:58 MCV 85 fl (79-97) 12/22/21 04:58 MCH 29 pg (28-32) 12/22/21 04:58 MCHC 34 % (30-34) 12/22/21 04:58 RDW 18.5 % (13.2-15.2) H 12/22/21 04:58 Plt Count 216 K/mm3 (140-440) 12/22/21 04:58 Add Manual Diff Complete 12/20/21 04:54 Total Counted 100 12/20/21 04:54 Seg Neutrophils % Disc Inspector 11/06/21 15:50 Seg Neuts % (Manual) 88.0 % (40.0-70.0) H 12/20/21 04:54 Band Neutrophils % 0 % 12/20/21 04:54 Lymphocytes % (Manual) 6.0 % (13.4-35.0) L 12/20/21 04:54 Reactive Lymphs % (Man) 0 % 12/20/21 04:54 Monocytes % (Manual) 5.0 % (0.0-7.3) 12/20/21 04:54 Eosinophils % (Manual) 1.0 % (0.0-4.3) 12/20/21 04:54 Basophils % (Manual) 0 % (0.0-1.8) 12/20/21 04:54 Metamyelocytes % 0 % 12/20/21 04:54 Myelocytes % 0 % 12/20/21 04:54 Promyelocytes % 0 % 12/20/21 04:54 Blast Cells % 0 % 12/20/21 04:54 Nucleated RBC % Not Reportable 12/20/21 04:54 Seg Neutrophils # Man 10.8 K/mm3 (1.8-7.7) H 12/20/21 04:54 Band Neutrophils # 0.0 K/mm3 12/20/21 04:54 Lymphocytes # (Manual) 0.7 K/mm3 (1.2-5.4) L 12/20/21 04:54 Abs React Lymphs (Man) 0.0 K/mm3 12/20/21 04:54 Monocytes # (Manual) 0.6 K/mm3 (0.0-0.8) 12/20/21 04:54 Eosinophils # (Manual) 0.1 K/mm3 (0.0-0.4) 12/20/21 04:54 Basophils # (Manual) 0.0 K/mm3 (0.0-0.1) 12/20/21 04:54 Metamyelocytes # 0.0 K/mm3 12/20/21 04:54 Myelocytes # 0.0 K/mm3 12/20/21 04:54 Promyelocytes # 0.0 K/mm3 12/20/21 04:54 Blast Cells # 0.0 K/mm3 12/20/21 04:54 WBC Morphology Not Reportable 12/20/21 04:54 Hypersegmented Neuts Not Reportable 12/20/21 04:54 Hyposegmented Neuts Not Reportable 12/20/21 04:54 Hypogranular Neuts Not Reportable 12/20/21 04:54 Smudge Cells Not Reportable 12/20/21 04:54 Toxic Granulation Not Reportable 12/20/21 04:54 Toxic Vacuolation Not Reportable 12/20/21 04:54 Dohle Bodies Not Reportable 12/20/21 04:54 Pelger-Huet Anomaly Not Reportable 12/20/21 04:54 Irina Rods Not Reportable 12/20/21 04:54 Platelet Estimate Consistent w auto 12/20/21 04:54 Clumped Platelets Not Reportable 12/20/21 04:54 Plt Clumps, EDTA Not Reportable 12/20/21 04:54 Large Platelets Not Reportable 12/20/21 04:54 Giant Platelets Not Reportable 12/20/21 04:54 Platelet Satelliting Not Reportable 12/20/21 04:54 Plt Morphology Comment Not Reportable 12/20/21 04:54 RBC Morphology Not Reportable 12/20/21 04:54 Dimorphic RBCs Not Reportable 12/20/21 04:54 Polychromasia Not Reportable 12/20/21 04:54 Hypochromasia Not Reportable 12/20/21 04:54 Poikilocytosis Not Reportable 12/20/21 04:54 Anisocytosis 1+ 12/20/21 04:54 Microcytosis Not Reportable 12/20/21 04:54 Macrocytosis Not Reportable 12/20/21 04:54 Spherocytes Not Reportable 12/20/21 04:54 Pappenheimer Bodies Not Reportable 12/20/21 04:54 Sickle Cells Not Reportable 12/20/21 04:54 Target Cells Not Reportable 12/20/21 04:54 Tear Drop Cells Not Reportable 12/20/21 04:54 Ovalocytes Not Reportable 12/20/21 04:54 Helmet Cells Not Reportable 12/20/21 04:54 Odonnell-Ross Bodies Not Reportable 12/20/21 04:54 Martelle Rings Not Reportable 12/20/21 04:54 [place] Cells Not Reportable 12/20/21 04:54 Bite Cells Not Reportable 12/20/21 04:54 Crenated Cell Not Reportable 12/20/21 04:54 Elliptocytes Not Reportable 12/20/21 04:54 Acanthocytes (Spur) Not Reportable 12/20/21 04:54 Rouleaux Not Reportable 12/20/21 04:54 Hemoglobin C Crystals Not Reportable 12/20/21 04:54 Schistocytes Not Reportable 12/20/21 04:54 Malaria parasites Not Reportable 12/20/21 04:54 Godfrey Bodies Not Reportable 12/20/21 04:54 Hem Pathologist Commnt No 12/20/21 04:54 PT 16.9 Sec. (12.2-14.9) H 11/26/21 05:00 INR 1.24 (0.87-1.13) H 11/26/21 05:00 APTT 29.2 Sec. (24.2-36.6) 11/26/21 05:00 D-Dimer 2655.00 ng/mlDDU (0-234) H 11/11/21 04:28 ABG pH 7.479 pH Units (7.350-7.450) H 12/16/21 20:52 ABG pCO2 37.5 mm Hg 12/16/21 20:52 ABG pO2 79.3 mm Hg (80.0-90.0) L 12/16/21 20:52 ABG HCO3 27.3 mmol/L (20.0-26.0) H 12/16/21 20:52 ABG O2 Saturation 97.0 % (95.0-99.0) 12/16/21 20:52 ABG O2 Content 12.3 (0.0-44) 12/16/21 20:52 ABG Base Excess 3.6 mmol/L (-2.0-3.0) H 12/16/21 20:52 ABG Hemoglobin 9.1 gm/dl (12.0-16.0) L 12/16/21 20:52 ABG Carboxyhemoglobin 1.6 % (0.0-5.0) 12/16/21 20:52 ABG Methemoglobin 0.5 % (0.0-1.5) 12/16/21 20:52 Oxyhemoglobin 94.9 % (95.0-99.0) L 12/16/21 20:52 FiO2 30 % 12/16/21 20:52 Sodium 130 mmol/L (137-145) L 12/22/21 04:58 Potassium 4.2 mmol/L (3.6-5.0) 12/22/21 04:58 Chloride 97.8 mmol/L (98-107) L 12/22/21 04:58 Carbon Dioxide 22 mmol/L (22-30) 12/22/21 04:58 Anion Gap 14 mmol/L 12/22/21 04:58 BUN 31 mg/dL (7-17) H 12/22/21 04:58 Creatinine 0.5 mg/dL (0.6-1.2) L 12/22/21 04:58 Estimated GFR > 60 ml/min 12/22/21 04:58 BUN/Creatinine Ratio 62 % 12/22/21 04:58 Glucose 122 mg/dL (65-100) H 12/22/21 04:58 POC Glucose 97 mg/dL (70-105) 12/22/21 00:18 Lactic Acid 3.70 mmol/L (0.7-2.0) H* 11/03/21 22:32 Calcium 7.9 mg/dL (8.4-10.2) L 12/22/21 04:58 Phosphorus 3.40 mg/dL (2.5-4.5) 12/21/21 04:21 Magnesium 1.70 mg/dL (1.7-2.3) 12/21/21 04:21 Ferritin 52.6 ng/mL (10.0-200.0) 11/05/21 06:11 Total Bilirubin 0.50 mg/dL (0.1-1.2) 11/17/21 05:56 Direct Bilirubin < 0.2 mg/dL (0-0.2) 11/11/21 04:28 Indirect Bilirubin 0.1 mg/dL 11/11/21 04:28 AST 36 units/L (5-40) 11/17/21 05:56 ALT 47 units/L (7-56) 11/17/21 05:56 Alkaline Phosphatase 107 units/L (35-129) 11/17/21 05:56 Ammonia 42.0 umol/L (25-60) 11/10/21 14:08 Lactate Dehydrogenase 187 units/L (91-180) H 11/05/21 06:11 Troponin T 0.045 ng/mL (0.00-0.029) H 11/29/21 20:15 C-Reactive Protein 22.20 mg/dL (0.00-1.30) H 11/05/21 06:11 NT-Pro-B Natriuret Pep 7895 pg/mL (0-900) H 11/03/21 22:32 Total Protein 5.1 g/dL (6.3-8.2) L 11/17/21 05:56 Albumin 2.2 g/dL (3.9-5) L 11/17/21 05:56 Albumin/Globulin Ratio 0.8 % 11/17/21 05:56 Triglycerides 59 mg/dL (2-149) 11/29/21 20:15 Cholesterol 74 mg/dL (50-199) 11/29/21 20:15 LDL Cholesterol Direct 25 mg/dL (50-130) L 11/29/21 20:15 HDL Cholesterol 41 mg/dL (40-59) 11/29/21 20:15 Cholesterol/HDL Ratio 1.80 % 11/29/21 20:15 Vitamin B12 1823 pg/mL (211-911) H 11/10/21 14:08 TSH 1.510 mlU/mL (0.270-4.200) 11/10/21 14:08 Urine Color Yellow (Yellow) 11/11/21 09:00 Urine Turbidity Slightly-cloudy (Clear) 11/11/21 09:00 Urine pH 5.0 (5.0-7.0) 11/11/21 09:00 Ur Specific [place] 1.009 (1.003-1.030) 11/11/21 09:00 Urine Protein <15 mg/dl mg/dL (Negative) 11/11/21 09:00 Urine Glucose (UA) Neg mg/dL (Negative) 11/11/21 09:00 Urine Ketones Neg mg/dL (Negative) 11/11/21 09:00 Urine Blood Mod (Negative) 11/11/21 09:00 Urine Nitrite Neg (Negative) 11/11/21 09:00 Urine Bilirubin Neg (Negative) 11/11/21 09:00 Urine Urobilinogen < 2.0 mg/dL (<2.0) 11/11/21 09:00 Ur Leukocyte Esterase Neg (Negative) 11/11/21 09:00 Urine WBC (Auto) < 1.0 /HPF (0.0-6.0) 11/11/21 09:00 Urine RBC (Auto) < 1.0 /HPF (0.0-6.0) 11/11/21 09:00 Vancomycin Trough 15.5 ug/mL (5.0-20.0) 12/19/21 13:48 Coronavirus (PCR) Negative (Negative) 11/10/21 08:30 Blood Type O POSITIVE 12/14/21 10:30 Antibody Screen Negative 12/14/21 10:30 Crossmatch See Detail 12/14/21 10:30 Microbiology: Microbiology 12/19/21 09:36 Peripheral/Venous Blood Culture - Preliminary NO GROWTH AFTER 72 HOURS 12/19/21 09:36 Peripheral/Venous Blood Culture - Preliminary NO GROWTH AFTER 72 HOURS Gamble/IV: Voiding Method Indwelling Catheter Active Medications - Current Medications Current Medications: Generic Name Dose Route Start Last Admin Trade Name Freq PRN Reason Stop Dose Admin Acetaminophen 650 mg 12/14/21 04:12 12/16/21 13:34 Acetaminophen 325 Mg/10.15 Ml Oral Liqd Unit Dose FEEDTUBE 650 mg Q6H PRN Administration Non Cardiac Pain or Temp>100.5 Hydrocodone Bitart/Acetaminophen 1 each 11/21/21 10:00 12/22/21 13:45 Hydrocodone/Acetaminophen 10-325mg Tab FEEDTUBE 1 each TID YOSSI Administration Alprazolam 0.25 mg 12/14/21 09:00 12/22/21 09:01 Alprazolam 0.25 Mg Tab PO 0.25 mg Q8H PRN Administration Agitation Lipase/Protease/Amylase 1 each 11/08/21 11:09 Lipase 10,500/Protease 25,000/Amylase 43,750 (Units) Dr Lema FEEDTUBE PRN PRN For Clogged Feeding Tube Buspirone HCl 7.5 mg 11/17/21 22:00 12/22/21 09:01 Buspirone 5 Mg Tab PO 7.5 mg BID YOSSI Administration Dextrose 0 ml 11/10/21 10:52 11/21/21 16:27 Dextrose 10% *Hypoglycemia IV 50 ml PRN PRN Administration Hypoglycemia Docusate Sodium 100 mg 12/04/21 11:00 12/22/21 09:01 Docusate Sodium 100 Mg/10 Ml Oral Liqd PO 100 mg BID YOSSI Administration Gabapentin 100 mg 12/01/21 10:00 12/22/21 09:01 Gabapentin 100 Mg Cap PO 100 mg QDAY YOSSI Administration Hydromorphone HCl 0.5 mg 12/08/21 20:06 12/20/21 03:35 Hydromorphone 1 Mg/1 Ml Inj IV 0.5 mg Q3H PRN Administration Pain, Moderate (4-6) Hydrophilic Ointment 1 applic 11/06/21 04:02 Lip Therapy Vaseline TP Q2HR PRN Dry Lips Vancomycin HCl 1 gm in 250 mls @ 166.667 mls/hr 12/16/21 14:00 12/22/21 13:46 Vancomycin/Ns 1 Gm/250 Ml IV 01/12/22 15:29 166.66 mls/hr Q24H YOSSI Administration Protocol Lansoprazole 30 mg 11/24/21 22:00 12/22/21 09:03 Lansoprazole 30 Mg Solutab FEEDTUBE 30 mg BID YOSSI Administration Levothyroxine Sodium 125 mcg 11/05/21 07:00 12/22/21 05:14 Levothyroxine 125 Mcg Tab PO 125 mcg DAILY@0600 YOSSI Administration Melatonin 5 mg 12/05/21 22:00 12/21/21 22:18 Melatonin 5 Mg Tab PO 5 mg QHS YOSSI Administration Metoprolol Tartrate 6.25 mg 12/08/21 22:52 12/22/21 09:02 Metoprolol Tartrate 25 Mg Tab PO 6.25 mg BID YOSSI Administration Midodrine 10 mg 12/22/21 14:00 12/22/21 15:28 Midodrine 5 Mg Tab PO 10 mg TID YOSSI Administration Multi-Ingred Cream/Lotion/Oil/Oint 1 applic 11/06/21 04:02 Mineral Oil/Petrolatum, White Ophth Oint 3.5 Gm OU Q4HR PRN Dry Eye(s) Nitroglycerin 0.4 mg 11/30/21 11:36 Nitroglycerin 0.4 Mg Tab Subl SL .Q5MIN PRN Chest Pain Ondansetron HCl 4 mg 12/05/21 10:00 12/20/21 12:43 Ondansetron 4 Mg/2 Ml Inj IV 4 mg Q8H PRN Administration Nausea And Vomiting Polyethylene Glycol 17 gm 12/02/21 10:00 12/22/21 18:48 Polyethylene Glycol 3350 17 Gm Powder PO Not Given QDAY [facility] Pravastatin Sodium 20 mg 11/18/21 22:00 12/21/21 22:18 Pravastatin 20 Mg Tab PO 20 mg QHS [facility] Administration Quetiapine Fumarate 50 mg 12/01/21 22:00 12/21/21 22:18 Quetiapine 25 Mg Tab PO 50 mg QHS [facility] Administration Simple Syrup 15 ml 11/08/21 11:09 Simple Syrup 15 Ml FEEDTUBE PRN PRN Hypoglycemia Simple Syrup 30 ml 11/08/21 11:09 Simple Syrup 15 Ml FEEDTUBE PRN PRN Hypoglycemia Sodium Bicarbonate 325 mg 11/08/21 11:09 Sodium Bicarbonate 325 Mg Tab FEEDTUBE PRN PRN For Clogged Feeding Tube Sodium Chloride 10 ml 11/04/21 10:00 12/22/21 09:04 Sodium Chloride 0.9% 10 Ml Flush Syringe IV 10 ml BID YOSSI Administration Sodium Chloride 10 ml 11/04/21 02:03 Sodium Chloride 0.9% 10 Ml Flush Syringe IV PRN PRN LINE FLUSH Sucralfate 1 gm 11/18/21 16:30 12/22/21 15:32 Sucralfate 1 Gm/10 Ml Oral Liqd PO 1 gm ACHS YOSSI Administration Trazodone HCl 50 mg 12/04/21 22:00 12/21/21 22:17 Trazodone 50 Mg Tab PO 50 mg QHS YOSSI Administration Nutrition/Malnutrition Assess - Dietary Evaluation Nutrition/Malnutrition Findings: Nutrition Notes Start: 11/04/21 17:16 Freq: Status: Active Protocol: Document 12/22/21 15:53 YOVANI (Rec: 12/22/21 16:03 YOVANI [id number]) Nutrition Notes Initial or Follow up Reassessment Current Diagnosis Diabetes,Heart Failure, Respiratory Failure Other Pertinent Diagnosis Pneu, bilat pleural effusion, bacteremia Current Diet TF - Vital AF 1.2 at 40ml/hr Labs/Tests Na 130 BUN 31 Pertinent Medications Reviewed Height 5 ft Weight 71.5 kg [place] Body Weight (kg) 45.45 BMI 30.7 Weight change and time frame Current wt obtained from bed scale Weight Status Obese Subjective/Other Information Pt remains on vent support. Pt tolerating TF at goal rate. RN reports hypotension this am; may need levophed if NS bolus does not work. Percent of energy/protein needs met: 95% energy 79% pro Burn Absent Trauma Absent Minimum of two criteria No #1 Nutrition Diagnosis Inadequate oral intake Diagnosis Progress(for reassessment Continues documentation) Is patient on ventilator? Yes Is Patient Ambulatory and/or Out of Bed No REE-([facility]-confined to bed) 1316.916 Kcal/Kg value to use for calculation 17 Approximate Energy Requirements Using 1216 kcal/Kg Calculation Used for Recommendations Kcal/kg Additional Notes Pro needs 2g/kg IBW: 91g/day Fluid needs 1ml/kcal Nutrition Intervention Nutrition Support: Increase TF goal rate to Vital AF 1.2 at 45ml/hr with 70ml water flush q4h. Kcal 1,296 Protein (gm) 81 Carbohydrates (gm) 119 Fat (gm) 58 Fluid (mL) 876 Fiber (gm) 6 Goal #1 TF tolerance Goal #2 TF to meet at least 75% energy and pro needs Follow-Up By: 12/26/21 Additional Comments F/U: TF rate increase, vent status <LEAH ALFONSO - Last Filed: 12/23/21 07:30> Assessment and Plan Assessment and plan: I saw and evaluated the patient. I agree with the findings and the plan of care as documented in the Nurse Practitioner's~note, with the following corrections and additions. Hospitalist Physical - Constitutional Vitals: Temp Pulse Resp BP Pulse Ox 97.4 F L 74 20 113/96 73 L 12/23/21 04:00 12/23/21 07:00 12/23/21 07:00 12/23/21 07:00 12/23/21 07:00 HEART Score - HEART Score Troponin: Troponin T 0.045 ng/mL (0.00-0.029) H 11/29/21 20:15 Results - Labs CBC & Chem 7: 12/23/21 06:40 12/23/21 06:40 Labs: Laboratory Last Values WBC 11.5 K/mm3 (4.5-11.0) H 12/23/21 06:40 RBC 3.43 M/mm3 (3.65-5.03) L 12/23/21 06:40 Hgb 9.8 gm/dl (10.1-14.3) L 12/23/21 06:40 Hct 28.7 % (30.3-42.9) L 12/23/21 06:40 MCV 84 fl (79-97) 12/23/21 06:40 MCH 29 pg (28-32) 12/23/21 06:40 MCHC 34 % (30-34) 12/23/21 06:40 RDW 17.9 % (13.2-15.2) H 12/23/21 06:40 Plt Count 250 K/mm3 (140-440) 12/23/21 06:40 Add Manual Diff Complete 12/20/21 04:54 Total Counted 100 12/20/21 04:54 Seg Neutrophils % Disc Inspector 11/06/21 15:50 Seg Neuts % (Manual) 88.0 % (40.0-70.0) H 12/20/21 04:54 Band Neutrophils % 0 % 12/20/21 04:54 Lymphocytes % (Manual) 6.0 % (13.4-35.0) L 12/20/21 04:54 Reactive Lymphs % (Man) 0 % 12/20/21 04:54 Monocytes % (Manual) 5.0 % (0.0-7.3) 12/20/21 04:54 Eosinophils % (Manual) 1.0 % (0.0-4.3) 12/20/21 04:54 Basophils % (Manual) 0 % (0.0-1.8) 12/20/21 04:54 Metamyelocytes % 0 % 12/20/21 04:54 Myelocytes % 0 % 12/20/21 04:54 Promyelocytes % 0 % 12/20/21 04:54 Blast Cells % 0 % 12/20/21 04:54 Nucleated RBC % Not Reportable 12/20/21 04:54 Seg Neutrophils # Man 10.8 K/mm3 (1.8-7.7) H 12/20/21 04:54 Band Neutrophils # 0.0 K/mm3 12/20/21 04:54 Lymphocytes # (Manual) 0.7 K/mm3 (1.2-5.4) L 12/20/21 04:54 Abs React Lymphs (Man) 0.0 K/mm3 12/20/21 04:54 Monocytes # (Manual) 0.6 K/mm3 (0.0-0.8) 12/20/21 04:54 Eosinophils # (Manual) 0.1 K/mm3 (0.0-0.4) 12/20/21 04:54 Basophils # (Manual) 0.0 K/mm3 (0.0-0.1) 12/20/21 04:54 Metamyelocytes # 0.0 K/mm3 12/20/21 04:54 Myelocytes # 0.0 K/mm3 12/20/21 04:54 Promyelocytes # 0.0 K/mm3 12/20/21 04:54 Blast Cells # 0.0 K/mm3 12/20/21 04:54 WBC Morphology Not Reportable 12/20/21 04:54 Hypersegmented Neuts Not Reportable 12/20/21 04:54 Hyposegmented Neuts Not Reportable 12/20/21 04:54 Hypogranular Neuts Not Reportable 12/20/21 04:54 Smudge Cells Not Reportable 12/20/21 04:54 Toxic Granulation Not Reportable 12/20/21 04:54 Toxic Vacuolation Not Reportable 12/20/21 04:54 Dohle Bodies Not Reportable 12/20/21 04:54 Pelger-Huet Anomaly Not Reportable 12/20/21 04:54 Irina Rods Not Reportable 12/20/21 04:54 Platelet Estimate Consistent w auto 12/20/21 04:54 Clumped Platelets Not Reportable 12/20/21 04:54 Plt Clumps, EDTA Not Reportable 12/20/21 04:54 Large Platelets Not Reportable 12/20/21 04:54 Giant Platelets Not Reportable 12/20/21 04:54 Platelet Satelliting Not Reportable 12/20/21 04:54 Plt Morphology Comment Not Reportable 12/20/21 04:54 RBC Morphology Not Reportable 12/20/21 04:54 Dimorphic RBCs Not Reportable 12/20/21 04:54 Polychromasia Not Reportable 12/20/21 04:54 Hypochromasia Not Reportable 12/20/21 04:54 Poikilocytosis Not Reportable 12/20/21 04:54 Anisocytosis 1+ 12/20/21 04:54 Microcytosis Not Reportable 12/20/21 04:54 Macrocytosis Not Reportable 12/20/21 04:54 Spherocytes Not Reportable 12/20/21 04:54 Pappenheimer Bodies Not Reportable 12/20/21 04:54 Sickle Cells Not Reportable 12/20/21 04:54 Target Cells Not Reportable 12/20/21 04:54 Tear Drop Cells Not Reportable 12/20/21 04:54 Ovalocytes Not Reportable 12/20/21 04:54 Helmet Cells Not Reportable 12/20/21 04:54 Odonnell-Ross Bodies Not Reportable 12/20/21 04:54 Martelle Rings Not Reportable 12/20/21 04:54 [place] Cells Not Reportable 12/20/21 04:54 Bite Cells Not Reportable 12/20/21 04:54 Crenated Cell Not Reportable 12/20/21 04:54 Elliptocytes Not Reportable 12/20/21 04:54 Acanthocytes (Spur) Not Reportable 12/20/21 04:54 Rouleaux Not Reportable 12/20/21 04:54 Hemoglobin C Crystals Not Reportable 12/20/21 04:54 Schistocytes Not Reportable 12/20/21 04:54 Malaria parasites Not Reportable 12/20/21 04:54 Godfrey Bodies Not Reportable 12/20/21 04:54 Hem Pathologist Commnt No 12/20/21 04:54 PT 16.9 Sec. (12.2-14.9) H 11/26/21 05:00 INR 1.24 (0.87-1.13) H 11/26/21 05:00 APTT 29.2 Sec. (24.2-36.6) 11/26/21 05:00 D-Dimer 2655.00 ng/mlDDU (0-234) H 11/11/21 04:28 ABG pH 7.479 pH Units (7.350-7.450) H 12/16/21 20:52 ABG pCO2 37.5 mm Hg 12/16/21 20:52 ABG pO2 79.3 mm Hg (80.0-90.0) L 12/16/21 20:52 ABG HCO3 27.3 mmol/L (20.0-26.0) H 12/16/21 20:52 ABG O2 Saturation 97.0 % (95.0-99.0) 12/16/21 20:52 ABG O2 Content 12.3 (0.0-44) 12/16/21 20:52 ABG Base Excess 3.6 mmol/L (-2.0-3.0) H 12/16/21 20:52 ABG Hemoglobin 9.1 gm/dl (12.0-16.0) L 12/16/21 20:52 ABG Carboxyhemoglobin 1.6 % (0.0-5.0) 12/16/21 20:52 ABG Methemoglobin 0.5 % (0.0-1.5) 12/16/21 20:52 Oxyhemoglobin 94.9 % (95.0-99.0) L 12/16/21 20:52 FiO2 30 % 12/16/21 20:52 Sodium 136 mmol/L (137-145) L 12/23/21 06:40 Potassium 3.8 mmol/L (3.6-5.0) 12/23/21 06:40 Chloride 101.4 mmol/L (98-107) 12/23/21 06:40 Carbon Dioxide 26 mmol/L (22-30) 12/23/21 06:40 Anion Gap 12 mmol/L 12/23/21 06:40 BUN 27 mg/dL (7-17) H 12/23/21 06:40 Creatinine 0.4 mg/dL (0.6-1.2) L 12/23/21 06:40 Estimated GFR > 60 ml/min 12/23/21 06:40 BUN/Creatinine Ratio 68 % 12/23/21 06:40 Glucose 107 mg/dL (65-100) H 12/23/21 06:40 POC Glucose 101 mg/dL (70-105) 12/23/21 00:07 Lactic Acid 3.70 mmol/L (0.7-2.0) H* 11/03/21 22:32 Calcium 8.1 mg/dL (8.4-10.2) L 12/23/21 06:40 Phosphorus 3.40 mg/dL (2.5-4.5) 12/21/21 04:21 Magnesium 1.70 mg/dL (1.7-2.3) 12/21/21 04:21 Ferritin 52.6 ng/mL (10.0-200.0) 11/05/21 06:11 Total Bilirubin 0.50 mg/dL (0.1-1.2) 11/17/21 05:56 Direct Bilirubin < 0.2 mg/dL (0-0.2) 11/11/21 04:28 Indirect Bilirubin 0.1 mg/dL 11/11/21 04:28 AST 36 units/L (5-40) 11/17/21 05:56 ALT 47 units/L (7-56) 11/17/21 05:56 Alkaline Phosphatase 107 units/L (35-129) 11/17/21 05:56 Ammonia 42.0 umol/L (25-60) 11/10/21 14:08 Lactate Dehydrogenase 187 units/L (91-180) H 11/05/21 06:11 Troponin T 0.045 ng/mL (0.00-0.029) H 11/29/21 20:15 C-Reactive Protein 22.20 mg/dL (0.00-1.30) H 11/05/21 06:11 NT-Pro-B Natriuret Pep 7895 pg/mL (0-900) H 11/03/21 22:32 Total Protein 5.1 g/dL (6.3-8.2) L 11/17/21 05:56 Albumin 2.2 g/dL (3.9-5) L 11/17/21 05:56 Albumin/Globulin Ratio 0.8 % 11/17/21 05:56 Triglycerides 59 mg/dL (2-149) 11/29/21 20:15 Cholesterol 74 mg/dL (50-199) 11/29/21 20:15 LDL Cholesterol Direct 25 mg/dL (50-130) L 11/29/21 20:15 HDL Cholesterol 41 mg/dL (40-59) 11/29/21 20:15 Cholesterol/HDL Ratio 1.80 % 11/29/21 20:15 Vitamin B12 1823 pg/mL (211-911) H 11/10/21 14:08 TSH 1.510 mlU/mL (0.270-4.200) 11/10/21 14:08 Urine Color Yellow (Yellow) 11/11/21 09:00 Urine Turbidity Slightly-cloudy (Clear) 11/11/21 09:00 Urine pH 5.0 (5.0-7.0) 11/11/21 09:00 Ur Specific [place] 1.009 (1.003-1.030) 11/11/21 09:00 Urine Protein <15 mg/dl mg/dL (Negative) 11/11/21 09:00 Urine Glucose (UA) Neg mg/dL (Negative) 11/11/21 09:00 Urine Ketones Neg mg/dL (Negative) 11/11/21 09:00 Urine Blood Mod (Negative) 11/11/21 09:00 Urine Nitrite Neg (Negative) 11/11/21 09:00 Urine Bilirubin Neg (Negative) 11/11/21 09:00 Urine Urobilinogen < 2.0 mg/dL (<2.0) 11/11/21 09:00 Ur Leukocyte Esterase Neg (Negative) 11/11/21 09:00 Urine WBC (Auto) < 1.0 /HPF (0.0-6.0) 11/11/21 09:00 Urine RBC (Auto) < 1.0 /HPF (0.0-6.0) 11/11/21 09:00 Vancomycin Trough 15.5 ug/mL (5.0-20.0) 12/19/21 13:48 Coronavirus (PCR) Negative (Negative) 11/10/21 08:30 Blood Type O POSITIVE 12/14/21 10:30 Antibody Screen Negative 12/14/21 10:30 Crossmatch See Detail 12/14/21 10:30 Microbiology: Microbiology 12/19/21 09:36 Peripheral/Venous Blood Culture - Preliminary NO GROWTH AFTER 72 HOURS 12/19/21 09:36 Peripheral/Venous Blood Culture - Preliminary NO GROWTH AFTER 72 HOURS Gamble/IV: Voiding Method Indwelling Catheter Active Medications - Current Medications Current Medications: Generic Name Dose Route Start Last Admin Trade Name Freq PRN Reason Stop Dose Admin Acetaminophen 650 mg 12/14/21 04:12 12/16/21 13:34 Acetaminophen 325 Mg/10.15 Ml Oral Liqd Unit Dose FEEDTUBE 650 mg Q6H PRN Administration Non Cardiac Pain or Temp>100.5 Hydrocodone Bitart/Acetaminophen 1 each 11/21/21 10:00 12/22/21 20:26 Hydrocodone/Acetaminophen 10-325mg Tab FEEDTUBE 1 each TID YOSSI Administration Alprazolam 0.25 mg 12/14/21 09:00 12/22/21 23:55 Alprazolam 0.25 Mg Tab PO 0.25 mg Q8H PRN Administration Agitation Lipase/Protease/Amylase 1 each 11/08/21 11:09 Lipase 10,500/Protease 25,000/Amylase 43,750 (Units) Dr Lema FEEDTUBE PRN PRN For Clogged Feeding Tube Buspirone HCl 7.5 mg 11/17/21 22:00 12/22/21 21:13 Buspirone 5 Mg Tab PO 7.5 mg BID YOSSI Administration Dextrose 0 ml 11/10/21 10:52 11/21/21 16:27 Dextrose 10% *Hypoglycemia IV 50 ml PRN PRN Administration Hypoglycemia Docusate Sodium 100 mg 12/04/21 11:00 12/22/21 21:13 Docusate Sodium 100 Mg/10 Ml Oral Liqd PO Not Given BID YOSSI Gabapentin 100 mg 12/01/21 10:00 12/22/21 09:01 Gabapentin 100 Mg Cap PO 100 mg QDAY YOSSI Administration Hydromorphone HCl 0.5 mg 12/08/21 20:06 12/20/21 03:35 Hydromorphone 1 Mg/1 Ml Inj IV 0.5 mg Q3H PRN Administration Pain, Moderate (4-6) Hydrophilic Ointment 1 applic 11/06/21 04:02 Lip Therapy Vaseline TP Q2HR PRN Dry Lips Vancomycin HCl 1 gm in 250 mls @ 166.667 mls/hr 12/16/21 14:00 12/22/21 13:46 Vancomycin/Ns 1 Gm/250 Ml IV 01/12/22 15:29 166.66 mls/hr Q24H YOSSI Administration Protocol Lansoprazole 30 mg 11/24/21 22:00 12/22/21 21:15 Lansoprazole 30 Mg Solutab FEEDTUBE 30 mg BID YOSSI Administration Levothyroxine Sodium 125 mcg 11/05/21 07:00 12/23/21 06:32 Levothyroxine 125 Mcg Tab PO 125 mcg DAILY@0600 [facility] Administration Melatonin 5 mg 12/05/21 22:00 12/22/21 21:13 Melatonin 5 Mg Tab PO 5 mg QHS [facility] Administration Metoprolol Tartrate 6.25 mg 12/08/21 22:52 12/22/21 21:14 Metoprolol Tartrate 25 Mg Tab PO Not Given BID [facility] Midodrine 10 mg 12/22/21 14:00 12/22/21 20:26 Midodrine 5 Mg Tab PO 10 mg TID [facility] Administration Multi-Ingred Cream/Lotion/Oil/Oint 1 applic 11/06/21 04:02 Mineral Oil/Petrolatum, White Ophth Oint 3.5 Gm OU Q4HR PRN Dry Eye(s) Nitroglycerin 0.4 mg 11/30/21 11:36 Nitroglycerin 0.4 Mg Tab Subl SL .Q5MIN PRN Chest Pain Ondansetron HCl 4 mg 12/05/21 10:00 12/22/21 23:43 Ondansetron 4 Mg/2 Ml Inj IV 4 mg Q8H PRN Administration Nausea And Vomiting Polyethylene Glycol 17 gm 12/02/21 10:00 12/22/21 18:48 Polyethylene Glycol 3350 17 Gm Powder PO Not Given QDAY [facility] Pravastatin Sodium 20 mg 11/18/21 22:00 12/22/21 21:14 Pravastatin 20 Mg Tab PO 20 mg QHS [facility] Administration Quetiapine Fumarate 50 mg 12/01/21 22:00 12/22/21 21:14 Quetiapine 25 Mg Tab PO 50 mg QHS [facility] Administration Simple Syrup 15 ml 11/08/21 11:09 Simple Syrup 15 Ml FEEDTUBE PRN PRN Hypoglycemia Simple Syrup 30 ml 11/08/21 11:09 Simple Syrup 15 Ml FEEDTUBE PRN PRN Hypoglycemia Sodium Bicarbonate 325 mg 11/08/21 11:09 Sodium Bicarbonate 325 Mg Tab FEEDTUBE PRN PRN For Clogged Feeding Tube Sodium Chloride 10 ml 11/04/21 10:00 12/22/21 21:14 Sodium Chloride 0.9% 10 Ml Flush Syringe IV 10 ml BID YOSSI Administration Sodium Chloride 10 ml 11/04/21 02:03 Sodium Chloride 0.9% 10 Ml Flush Syringe IV PRN PRN LINE FLUSH Sucralfate 1 gm 11/18/21 16:30 12/22/21 21:13 Sucralfate 1 Gm/10 Ml Oral Liqd PO 1 gm ACHS YOSSI Administration Trazodone HCl 50 mg 12/04/21 22:00 12/22/21 21:13 Trazodone 50 Mg Tab PO 50 mg QHS YOSSI Administration Nutrition/Malnutrition Assess - Dietary Evaluation Nutrition/Malnutrition Findings: Nutrition Notes Start: 11/04/21 17:16 Freq: Status: Active Protocol: Document 12/22/21 15:53 YOVANI (Rec: 12/22/21 16:03 NHALL [email or web address]) Nutrition Notes Initial or Follow up Reassessment Current Diagnosis Diabetes,Heart Failure, Respiratory Failure Other Pertinent Diagnosis Pneu, bilat pleural effusion, bacteremia Current Diet TF - Vital AF 1.2 at 40ml/hr Labs/Tests Na 130 BUN 31 Pertinent Medications Reviewed Height 5 ft Weight 71.5 kg [place] Body Weight (kg) 45.45 BMI 30.7 Weight change and time frame Current wt obtained from bed scale Weight Status Obese Subjective/Other Information Pt remains on vent support. Pt tolerating TF at goal rate. RN reports hypotension this am; may need levophed if NS bolus does not work. Percent of energy/protein needs met: 95% energy 79% pro Burn Absent Trauma Absent Minimum of two criteria No #1 Nutrition Diagnosis Inadequate oral intake Diagnosis Progress(for reassessment Continues documentation) Is patient on ventilator? Yes Is Patient Ambulatory and/or Out of Bed No REE-([facility]-confined to bed) 1316.916 Kcal/Kg value to use for calculation 17 Approximate Energy Requirements Using 1216 kcal/Kg Calculation Used for Recommendations Kcal/kg Additional Notes Pro needs 2g/kg IBW: 91g/day Fluid needs 1ml/kcal Nutrition Intervention Nutrition Support: Increase TF goal rate to Vital AF 1.2 at 45ml/hr with 70ml water flush q4h. Kcal 1,296 Protein (gm) 81 Carbohydrates (gm) 119 Fat (gm) 58 Fluid (mL) 876 Fiber (gm) 6 Goal #1 TF tolerance Goal #2 TF to meet at least 75% energy and pro needs Follow-Up By: 12/26/21 Additional Comments F/U: TF rate increase, vent status
[2021-12-22] MEDS: traZODone 50 MG TAB PO SCH (21:13)
[2021-12-22] MEDS: MELATONIN 5 MG TAB PO SCH (21:13)
[2021-12-22] MEDS: PRAVASTATIN 20 MG TAB PO SCH (21:14)
[2021-12-22] MEDS: QUEtiapine 25 MG TAB PO SCH (21:14)
[2021-12-22] MEDS: ONDANSETRON 4 MG/2 ML INJ IV PRN (23:43)
[2021-12-23] MEDS: LEVOTHYROXINE 125 MCG TAB PO SCH (06:32)
[2021-12-23 06:48] LABS: Hematocrit 28.7 % (30.3-42.9); Hemoglobin 9.8 gm/dl (10.1-14.3); Mean Corpuscular HGB Conc 34 % (30-34); Mean Corpuscular Volume 84 fl (79-97); Platelet Count 250 K/mm3 (140-440); Red Blood Count 3.43 M/mm3 (3.65-5.03); Red Cell Distribution Width 17.9 % (13.2-15.2)
[2021-12-23 07:09] LABS: Blood Urea Nitrogen 27 mg/dL (7-17); Calcium 8.1 mg/dL (8.4-10.2); Hemolysis Index 8
[2021-12-23 07:13] LABS: BUN/Creatinine Ratio 68
[2021-12-23] MEDS: METOPROLOL TARTRATE 25 MG TAB PO SCH ×2 (09:08→21:34)
[2021-12-23] MEDS: LANSOPRAZOLE 30 MG SOLUTAB FEEDTUBE SCH ×2 (09:09→21:33)
[2021-12-23] MEDS: DOCUSATE SODIUM 100 MG/10 ML ORAL LIQD PO SCH ×2 (09:09→21:33)
[2021-12-23] MEDS: MIDODRINE 5 MG TAB PO SCH ×3 (09:09→21:36)
[2021-12-23] MEDS: GABAPENTIN 100 MG CAP PO SCH (09:09)
[2021-12-23] MEDS: SUCRALFATE 1 GM/10 ML ORAL LIQD PO SCH ×4 (09:09→21:33)
[2021-12-23] MEDS: HYDROcodone/ACETAMINOPHEN 10-325MG TAB FEEDTUBE SCH ×3 (09:10→21:35)
[2021-12-23] MEDS: busPIRone 5 MG TAB PO SCH ×2 (09:10→21:33)
--- NOTE | 2021-12-23 09:37 | Progress Note ---
Assessment and Plan Gram positive Bacteremia Acute respiratory failure with hypoxia, now on MVS Acute microcytic anemia Bilateral pneumonia DVT Left pleural effusion Cardiomyopathy EF 30-35% Moderate pulmonary HTN RVSP 49e - bolus 250 ml's IVNS then run at 150 ml's/hr X 2 hours - repeat CXR in am - continue Vancomycin for MRSA - no new issues otherwise, continue care as below; - LTAC evaluation ongoing - continue daily SAT and SBT assessment as tolerated - prn Levophed for target MAP > 65 mmHg - continue to wean supplemental oxygen for target O2 sat's > 90% acutely - VAP bundle addressed - continue lung protective strategies - continue bronchodilators with routine trach care and pulmonary hygiene per RT - wean per pulmonary driven protocols otherwise - avoid nephrotoxins, renally dose all medications - continue accuchecks with glycemic control per SSI (While critically ill target blood glucose of 140-180 mg/dL; avoid hypoglycemia) - sedation prn for target RASS 0 to -1 - antibiotics per ID recommendations - continue to avoid benzodiazepine's, reduce the possibility of delirium - prn analgesia per CPOT score - Maintenance of sleep-wake cycle, avoid delirium - continue enteral nutritional support at goal rate as tolerated - G.I. & VTE prophylaxis - PT/OT/ROM exercises - continue mobility protocols for pressure ulcer prophylaxis - Monitor hemodynamics closely - continue other care per attending / other consultants - discharge planning ongoing concurrently COVID SPECIFIC INTERVENTIONS - COVID-19 PCR negative .... Re-evaluate in am & prn CONDITION: CRITICAL PROGNOSIS: GUARDED CODE STATUS: FULL CODE The high probability of a clinically significant, sudden or life-threatening det erioration of the [respiratory, cardiovascular & neurologic] system(s) required my full and direct attention, intervention and personal management. The aggregate critical care time was [31] minutes without overlap. Time includes spent on; [x] Data Review and interpretation [x] Patient assessment and monitoring of vital signs [x] Documentation [x] Medication orders and management Subjective Date of service: 12/23/21 Principal diagnosis: Septic shock; AHRF; Anemia; Pneumonia; pleural effusion; HFrEF; Pulm HTN Interval history: Patient is seen today for: Septic shock; Acute hypoxemic respiratory failure; Anemia; Bilateral pneumonia; Left pleural effusion; HFrEF 30-35%; Pulm HTN RVSP 49 Seen and examined at bedside; 24hour events reviewed; nursing and respiratory care staff consulted; no adverse overnight events reported to me; resting in bed; remains a difficult wean; BP's soft today despite increased Midodrine dose; no N/V/F/C; still with anxiety issues Objective Vital Signs - 12hr 12/22/21 12/22/21 12/22/21 22:00 22:23 22:31 Temperature Pulse Rate 71 70 68 Pulse Rate [ From Monitor] Respiratory 14 15 13 Rate Blood Pressure 79/43 79/43 79/43 O2 Sat by Pulse 98 99 98 Oximetry O2 Sat by Pulse Oximetry [ Assessment] 12/22/21 12/22/21 12/23/21 23:00 23:31 00:00 Temperature 97.6 F Pulse Rate 69 66 67 Pulse Rate [ 78 From Monitor] Respiratory 16 14 14 Rate Blood Pressure 83/44 83/44 95/53 O2 Sat by Pulse 98 99 99 Oximetry O2 Sat by Pulse Oximetry [ Assessment] 12/23/21 12/23/21 12/23/21 00:07 00:31 01:00 Temperature Pulse Rate 70 62 64 Pulse Rate [ From Monitor] Respiratory 14 14 Rate Blood Pressure 83/44 95/53 96/54 O2 Sat by Pulse 100 100 100 Oximetry O2 Sat by Pulse Oximetry [ Assessment] 12/23/21 12/23/21 12/23/21 01:31 02:00 02:31 Temperature Pulse Rate 62 68 67 Pulse Rate [ From Monitor] Respiratory 14 17 14 Rate Blood Pressure 96/54 97/57 97/57 O2 Sat by Pulse 100 97 100 Oximetry O2 Sat by Pulse Oximetry [ Assessment] 12/23/21 12/23/21 12/23/21 03:00 03:31 04:00 Temperature 97.4 F L Pulse Rate 71 64 67 Pulse Rate [ 78 From Monitor] Respiratory 12 14 14 Rate Blood Pressure 101/60 101/60 91/43 O2 Sat by Pulse 100 99 98 Oximetry O2 Sat by Pulse Oximetry [ Assessment] 12/23/21 12/23/21 12/23/21 04:31 04:37 04:38 Temperature Pulse Rate 68 71 Pulse Rate [ From Monitor] Respiratory 14 Rate Blood Pressure 91/43 91/43 O2 Sat by Pulse 100 100 Oximetry O2 Sat by Pulse 100 Oximetry [ Assessment] 12/23/21 12/23/21 12/23/21 05:01 05:31 06:00 Temperature Pulse Rate 69 64 68 Pulse Rate [ From Monitor] Respiratory 16 14 15 Rate Blood Pressure 80/55 80/55 94/53 O2 Sat by Pulse 100 100 Oximetry O2 Sat by Pulse Oximetry [ Assessment] 12/23/21 12/23/21 12/23/21 06:31 07:00 07:31 Temperature Pulse Rate 73 74 64 Pulse Rate [ From Monitor] Respiratory 16 20 14 Rate Blood Pressure 94/53 113/96 113/96 O2 Sat by Pulse 100 73 L 98 Oximetry O2 Sat by Pulse Oximetry [ Assessment] 12/23/21 12/23/21 12/23/21 08:00 08:31 08:38 Temperature 97.4 F L Pulse Rate 66 76 70 Pulse Rate [ 78 From Monitor] Respiratory 13 18 Rate Blood Pressure 88/48 88/48 88/48 O2 Sat by Pulse 100 100 100 Oximetry O2 Sat by Pulse 100 Oximetry [ Assessment] 12/23/21 12/23/21 09:01 09:08 Temperature Pulse Rate 79 72 Pulse Rate [ From Monitor] Respiratory 17 Rate Blood Pressure 88/48 73/50 O2 Sat by Pulse 89 Oximetry O2 Sat by Pulse Oximetry [ Assessment] Constitutional: alert, appears uncomfortable, other (trach to MVS, frail elderly woman with mildly increased respiratory effort at rest) Eyes: non-icteric ENT: oropharynx moist, other (+ Midline tracheostomy with minimal secretions) Neck: supple, no lymphadenopathy, no JVD Effort: mildly labored Ascultation: Bilateral: diminished breath sounds, rhonchi Percussion: Bilateral: not dull Cardiovascular: regular rate and rhythm, other (S1,S2) Gastrointestinal: normoactive bowel sounds, soft, non-tender, non-distended (protuberant) Integumentary: normal Extremities: no cyanosis, pink and warm, pulses normal, edema (upper etremities) Neurologic: normal mental status, non-focal exam (grossly), pupils equal and round, motor strength normal and Psychiatric: anxious CBC and BMP: 12/24/21 04:24 12/24/21 04:24 ABG, PT/INR, D-dimer: ABG ABG pH 7.479 pH Units (7.350-7.450) H 12/16/21 20:52 ABG pCO2 37.5 mm Hg 12/16/21 20:52 ABG pO2 79.3 mm Hg (80.0-90.0) L 12/16/21 20:52 ABG O2 Saturation 97.0 % (95.0-99.0) 12/16/21 20:52 PT/INR, D-dimer PT 16.9 Sec. (12.2-14.9) H 11/26/21 05:00 INR 1.24 (0.87-1.13) H 11/26/21 05:00 D-Dimer 2655.00 ng/mlDDU (0-234) H 11/11/21 04:28 Abnormal lab findings: Abnormal Labs 11/03/21 11/03/21 11/03/21 22:32 22:32 22:32 WBC 29.3 H RBC 2.93 L Hgb 6.1 L Hct 21.9 L MCV 75 L MCH 21 L MCHC 28 L RDW 19.7 H Plt Count Seg Neuts % (Manual) 97.0 H Lymphocytes % (Manual) 3.0 L Seg Neutrophils # Man 28.4 H Lymphocytes # (Manual) 0.9 L Monocytes # (Manual) PT 18.6 H INR 1.40 H D-Dimer ABG pH ABG pO2 ABG HCO3 ABG O2 Saturation ABG Base Excess ABG Hemoglobin Oxyhemoglobin Sodium Potassium Chloride Carbon Dioxide 20 L BUN 33 H Creatinine Glucose 119 H POC Glucose Lactic Acid Calcium 8.3 L Phosphorus Magnesium AST ALT Alkaline Phosphatase Lactate Dehydrogenase Troponin T 0.035 H C-Reactive Protein NT-Pro-B Natriuret Pep Total Protein Albumin LDL Cholesterol Direct 34 L Vitamin B12 Crossmatch 11/03/21 11/03/21 11/03/21 22:32 22:32 23:57 WBC RBC Hgb Hct MCV MCH MCHC RDW Plt Count Seg Neuts % (Manual) Lymphocytes % (Manual) Seg Neutrophils # Man Lymphocytes # (Manual) Monocytes # (Manual) PT INR D-Dimer ABG pH ABG pO2 ABG HCO3 ABG O2 Saturation ABG Base Excess ABG Hemoglobin Oxyhemoglobin Sodium Potassium Chloride Carbon Dioxide BUN Creatinine Glucose POC Glucose Lactic Acid 3.70 H* Calcium Phosphorus Magnesium AST ALT Alkaline Phosphatase 139 H Lactate Dehydrogenase Troponin T C-Reactive Protein NT-Pro-B Natriuret Pep 7895 H Total Protein Albumin 3.5 L LDL Cholesterol Direct Vitamin B12 Crossmatch See Detail 11/04/21 11/04/21 11/05/21 00:59 13:58 00:51 WBC 27.9 H RBC 3.28 L Hgb 7.3 L Hct 25.5 L MCV 78 L MCH 22 L MCHC 29 L RDW 19.1 H Plt Count Seg Neuts % (Manual) 96.0 H Lymphocytes % (Manual) 2.0 L Seg Neutrophils # Man 26.8 H Lymphocytes # (Manual) 0.6 L Monocytes # (Manual) PT INR D-Dimer ABG pH ABG pO2 ABG HCO3 ABG O2 Saturation ABG Base Excess ABG Hemoglobin Oxyhemoglobin Sodium Potassium Chloride Carbon Dioxide BUN Creatinine Glucose POC Glucose Lactic Acid Calcium Phosphorus Magnesium AST ALT Alkaline Phosphatase Lactate Dehydrogenase Troponin T 0.051 H D 0.032 H D C-Reactive Protein NT-Pro-B Natriuret Pep Total Protein Albumin LDL Cholesterol Direct Vitamin B12 Crossmatch 11/05/21 11/05/21 11/05/21 06:11 06:11 06:11 WBC 31.8 H RBC 3.57 L Hgb 8.0 L Hct 27.7 L MCV 78 L MCH 22 L MCHC 29 L RDW 19.2 H Plt Count Seg Neuts % (Manual) 91.0 H Lymphocytes % (Manual) 4.5 L Seg Neutrophils # Man 28.9 H Lymphocytes # (Manual) Monocytes # (Manual) 1.1 H PT INR D-Dimer 1494.53 H ABG pH ABG pO2 ABG HCO3 ABG O2 Saturation ABG Base Excess ABG Hemoglobin Oxyhemoglobin Sodium Potassium Chloride Carbon Dioxide 19 L BUN 42 H Creatinine Glucose 115 H POC Glucose Lactic Acid Calcium Phosphorus Magnesium AST 43 H ALT Alkaline Phosphatase Lactate Dehydrogenase 187 H Troponin T C-Reactive Protein 22.20 H NT-Pro-B Natriuret Pep Total Protein 6.0 L Albumin 3.2 L LDL Cholesterol Direct Vitamin B12 Crossmatch 11/05/21 11/05/21 11/06/21 06:11 12:15 00:30 WBC RBC Hgb Hct MCV MCH MCHC RDW Plt Count Seg Neuts % (Manual) Lymphocytes % (Manual) Seg Neutrophils # Man Lymphocytes # (Manual) Monocytes # (Manual) PT INR D-Dimer ABG pH ABG pO2 ABG HCO3 ABG O2 Saturation ABG Base Excess ABG Hemoglobin Oxyhemoglobin Sodium Potassium Chloride Carbon Dioxide BUN Creatinine Glucose POC Glucose 113 H 69 L Lactic Acid Calcium Phosphorus Magnesium AST ALT Alkaline Phosphatase Lactate Dehydrogenase Troponin T 0.033 H C-Reactive Protein NT-Pro-B Natriuret Pep Total Protein Albumin LDL Cholesterol Direct Vitamin B12 Crossmatch 11/06/21 11/06/21 11/06/21 05:50 15:50 15:50 WBC 25.5 H RBC 3.62 L Hgb 8.0 L Hct 27.5 L MCV 76 L MCH 22 L MCHC 29 L RDW 19.6 H Plt Count Seg Neuts % (Manual) 92.0 H Lymphocytes % (Manual) 5.0 L Seg Neutrophils # Man 23.5 H Lymphocytes # (Manual) Monocytes # (Manual) PT INR D-Dimer ABG pH 7.305 L ABG pO2 ABG HCO3 15.8 L ABG O2 Saturation ABG Base Excess -9.6 L ABG Hemoglobin 8.6 L Oxyhemoglobin 94.6 L Sodium Potassium Chloride 113.9 H Carbon Dioxide 17 L BUN 56 H Creatinine Glucose 114 H POC Glucose Lactic Acid Calcium 7.9 L Phosphorus Magnesium AST 1410 H ALT 934 H Alkaline Phosphatase 142 H Lactate Dehydrogenase Troponin T C-Reactive Protein NT-Pro-B Natriuret Pep Total Protein 5.0 L Albumin 2.6 L LDL Cholesterol Direct Vitamin B12 Crossmatch 11/07/21 11/07/21 11/07/21 03:30 04:50 08:07 WBC RBC Hgb Hct MCV MCH MCHC RDW Plt Count Seg Neuts % (Manual) Lymphocytes % (Manual) Seg Neutrophils # Man Lymphocytes # (Manual) Monocytes # (Manual) PT INR D-Dimer ABG pH ABG pO2 296.9 H ABG HCO3 18.1 L ABG O2 Saturation 99.5 H ABG Base Excess -5.9 L ABG Hemoglobin 7.6 L Oxyhemoglobin Sodium Potassium Chloride Carbon Dioxide BUN Creatinine Glucose POC Glucose 106 H 108 H Lactic Acid Calcium Phosphorus Magnesium AST ALT Alkaline Phosphatase Lactate Dehydrogenase Troponin T C-Reactive Protein NT-Pro-B Natriuret Pep Total Protein Albumin LDL Cholesterol Direct Vitamin B12 Crossmatch 11/08/21 11/08/21 11/08/21 03:10 18:05 23:43 WBC RBC Hgb Hct MCV MCH MCHC RDW Plt Count Seg Neuts % (Manual) Lymphocytes % (Manual) Seg Neutrophils # Man Lymphocytes # (Manual) Monocytes # (Manual) PT INR D-Dimer ABG pH ABG pO2 127.4 H ABG HCO3 ABG O2 Saturation ABG Base Excess -3.4 L ABG Hemoglobin 7.4 L Oxyhemoglobin Sodium Potassium Chloride Carbon Dioxide BUN Creatinine Glucose POC Glucose 113 H 141 H Lactic Acid Calcium Phosphorus Magnesium AST ALT Alkaline Phosphatase Lactate Dehydrogenase Troponin T C-Reactive Protein NT-Pro-B Natriuret Pep Total Protein Albumin LDL Cholesterol Direct Vitamin B12 Crossmatch 11/08/21 11/08/21 11/09/21 Unknown Unknown 02:00 WBC 14.5 H RBC 3.35 L Hgb 7.5 L 8.1 L Hct 25.4 L 27.6 L MCV 76 L 76 L MCH 23 L 22 L MCHC RDW 19.9 H 19.9 H Plt Count Seg Neuts % (Manual) Lymphocytes % (Manual) Seg Neutrophils # Man Lymphocytes # (Manual) Monocytes # (Manual) PT INR D-Dimer ABG pH ABG pO2 ABG HCO3 ABG O2 Saturation ABG Base Excess ABG Hemoglobin Oxyhemoglobin Sodium 154 H D Potassium 3.3 L Chloride 120.7 H Carbon Dioxide 20 L BUN 38 H Creatinine Glucose POC Glucose Lactic Acid Calcium 8.3 L Phosphorus Magnesium AST ALT Alkaline Phosphatase Lactate Dehydrogenase Troponin T C-Reactive Protein NT-Pro-B Natriuret Pep Total Protein Albumin LDL Cholesterol Direct Vitamin B12 Crossmatch 11/09/21 11/09/21 11/09/21 02:00 02:31 05:12 WBC RBC Hgb Hct MCV MCH MCHC RDW Plt Count Seg Neuts % (Manual) Lymphocytes % (Manual) Seg Neutrophils # Man Lymphocytes # (Manual) Monocytes # (Manual) PT INR D-Dimer ABG pH 7.479 H ABG pO2 121.3 H ABG HCO3 ABG O2 Saturation ABG Base Excess ABG Hemoglobin 7.3 L Oxyhemoglobin Sodium Potassium Chloride 112.5 H Carbon Dioxide BUN 33 H Creatinine Glucose 161 H POC Glucose 135 H Lactic Acid Calcium Phosphorus Magnesium AST 251 H ALT 481 H Alkaline Phosphatase Lactate Dehydrogenase Troponin T C-Reactive Protein NT-Pro-B Natriuret Pep Total Protein 5.0 L Albumin 2.8 L LDL Cholesterol Direct Vitamin B12 Crossmatch 11/09/21 11/09/21 11/09/21 11:33 16:32 23:28 WBC RBC Hgb Hct MCV MCH MCHC RDW Plt Count Seg Neuts % (Manual) Lymphocytes % (Manual) Seg Neutrophils # Man Lymphocytes # (Manual) Monocytes # (Manual) PT INR D-Dimer ABG pH ABG pO2 ABG HCO3 ABG O2 Saturation ABG Base Excess ABG Hemoglobin Oxyhemoglobin Sodium Potassium Chloride Carbon Dioxide BUN Creatinine Glucose POC Glucose 132 H 133 H 143 H Lactic Acid Calcium Phosphorus Magnesium AST ALT Alkaline Phosphatase Lactate Dehydrogenase Troponin T C-Reactive Protein NT-Pro-B Natriuret Pep Total Protein Albumin LDL Cholesterol Direct Vitamin B12 Crossmatch 11/10/21 11/10/21 11/10/21 04:00 04:00 05:35 WBC 16.0 H RBC 3.61 L Hgb 8.0 L Hct 27.1 L MCV 75 L MCH 22 L MCHC RDW 20.4 H Plt Count Seg Neuts % (Manual) Lymphocytes % (Manual) Seg Neutrophils # Man Lymphocytes # (Manual) Monocytes # (Manual) PT INR D-Dimer ABG pH ABG pO2 ABG HCO3 ABG O2 Saturation ABG Base Excess ABG Hemoglobin Oxyhemoglobin Sodium 149 H Potassium Chloride 114.1 H Carbon Dioxide BUN 31 H Creatinine Glucose 148 H POC Glucose 132 H Lactic Acid Calcium 8.2 L Phosphorus Magnesium AST ALT Alkaline Phosphatase Lactate Dehydrogenase Troponin T C-Reactive Protein NT-Pro-B Natriuret Pep Total Protein Albumin LDL Cholesterol Direct Vitamin B12 Crossmatch 11/10/21 11/10/21 11/10/21 11:31 14:08 15:35 WBC RBC Hgb Hct MCV MCH MCHC RDW Plt Count Seg Neuts % (Manual) Lymphocytes % (Manual) Seg Neutrophils # Man Lymphocytes # (Manual) Monocytes # (Manual) PT INR D-Dimer ABG pH ABG pO2 126.6 H ABG HCO3 ABG O2 Saturation ABG Base Excess ABG Hemoglobin 7.4 L Oxyhemoglobin Sodium Potassium Chloride Carbon Dioxide BUN Creatinine Glucose POC Glucose 147 H Lactic Acid Calcium Phosphorus Magnesium AST ALT Alkaline Phosphatase Lactate Dehydrogenase Troponin T C-Reactive Protein NT-Pro-B Natriuret Pep Total Protein Albumin LDL Cholesterol Direct Vitamin B12 1823 H Crossmatch 11/10/21 11/11/21 11/11/21 17:53 00:55 04:28 WBC RBC Hgb Hct MCV MCH MCHC RDW Plt Count Seg Neuts % (Manual) Lymphocytes % (Manual) Seg Neutrophils # Man Lymphocytes # (Manual) Monocytes # (Manual) PT INR D-Dimer ABG pH ABG pO2 ABG HCO3 ABG O2 Saturation ABG Base Excess ABG Hemoglobin Oxyhemoglobin Sodium 149 H Potassium Chloride 112.2 H Carbon Dioxide BUN 34 H Creatinine Glucose 148 H POC Glucose 140 H 145 H Lactic Acid Calcium 7.9 L Phosphorus Magnesium AST 53 H ALT 203 H Alkaline Phosphatase Lactate Dehydrogenase Troponin T C-Reactive Protein NT-Pro-B Natriuret Pep Total Protein 4.9 L Albumin 2.6 L LDL Cholesterol Direct Vitamin B12 Crossmatch 11/11/21 11/11/21 11/11/21 04:28 04:28 05:28 WBC 20.9 H RBC 3.47 L Hgb 7.5 L Hct 26.0 L MCV 75 L MCH 22 L MCHC 29 L RDW 21.6 H Plt Count 132 L Seg Neuts % (Manual) Lymphocytes % (Manual) Seg Neutrophils # Man Lymphocytes # (Manual) Monocytes # (Manual) PT INR D-Dimer 2655.00 H ABG pH ABG pO2 ABG HCO3 ABG O2 Saturation ABG Base Excess ABG Hemoglobin Oxyhemoglobin Sodium Potassium Chloride Carbon Dioxide BUN Creatinine Glucose POC Glucose 154 H Lactic Acid Calcium Phosphorus Magnesium AST ALT Alkaline Phosphatase Lactate Dehydrogenase Troponin T C-Reactive Protein NT-Pro-B Natriuret Pep Total Protein Albumin LDL Cholesterol Direct Vitamin B12 Crossmatch 11/11/21 11/11/21 11/12/21 12:38 18:13 00:14 WBC RBC Hgb Hct MCV MCH MCHC RDW Plt Count Seg Neuts % (Manual) Lymphocytes % (Manual) Seg Neutrophils # Man Lymphocytes # (Manual) Monocytes # (Manual) PT INR D-Dimer ABG pH ABG pO2 ABG HCO3 ABG O2 Saturation ABG Base Excess ABG Hemoglobin Oxyhemoglobin Sodium Potassium Chloride Carbon Dioxide BUN Creatinine Glucose POC Glucose 137 H 108 H 137 H Lactic Acid Calcium Phosphorus Magnesium AST ALT Alkaline Phosphatase Lactate Dehydrogenase Troponin T C-Reactive Protein NT-Pro-B Natriuret Pep Total Protein Albumin LDL Cholesterol Direct Vitamin B12 Crossmatch 11/12/21 11/12/21 11/12/21 05:40 06:24 11:12 WBC RBC Hgb Hct MCV MCH MCHC RDW Plt Count Seg Neuts % (Manual) Lymphocytes % (Manual) Seg Neutrophils # Man Lymphocytes # (Manual) Monocytes # (Manual) PT INR D-Dimer ABG pH 7.586 H ABG pO2 150.6 H ABG HCO3 27.2 H ABG O2 Saturation 99.1 H ABG Base Excess 5.2 H ABG Hemoglobin 7.5 L Oxyhemoglobin Sodium Potassium Chloride Carbon Dioxide BUN Creatinine Glucose POC Glucose 132 H 140 H Lactic Acid Calcium Phosphorus Magnesium AST ALT Alkaline Phosphatase Lactate Dehydrogenase Troponin T C-Reactive Protein NT-Pro-B Natriuret Pep Total Protein Albumin LDL Cholesterol Direct Vitamin B12 Crossmatch 11/12/21 11/12/21 11/12/21 14:50 14:50 17:13 WBC 19.8 H RBC 3.27 L Hgb 7.1 L Hct 24.5 L MCV 75 L MCH 22 L MCHC 29 L RDW 22.3 H Plt Count Seg Neuts % (Manual) Lymphocytes % (Manual) Seg Neutrophils # Man Lymphocytes # (Manual) Monocytes # (Manual) PT INR D-Dimer ABG pH ABG pO2 ABG HCO3 ABG O2 Saturation ABG Base Excess ABG Hemoglobin Oxyhemoglobin Sodium 150 H Potassium 3.3 L Chloride 112.0 H Carbon Dioxide BUN 40 H Creatinine Glucose 151 H POC Glucose 121 H Lactic Acid Calcium 7.4 L Phosphorus 1.70 L Magnesium 1.40 L AST ALT Alkaline Phosphatase Lactate Dehydrogenase Troponin T C-Reactive Protein NT-Pro-B Natriuret Pep Total Protein Albumin LDL Cholesterol Direct Vitamin B12 Crossmatch 11/12/21 11/13/21 11/13/21 23:19 05:34 06:30 WBC RBC Hgb Hct MCV MCH MCHC RDW Plt Count Seg Neuts % (Manual) Lymphocytes % (Manual) Seg Neutrophils # Man Lymphocytes # (Manual) Monocytes # (Manual) PT INR D-Dimer ABG pH ABG pO2 ABG HCO3 ABG O2 Saturation ABG Base Excess ABG Hemoglobin Oxyhemoglobin Sodium 149 H Potassium Chloride 60.0 L Carbon Dioxide BUN 40 H Creatinine Glucose 146 H POC Glucose 113 H 132 H Lactic Acid Calcium 7.3 L Phosphorus Magnesium 2.40 H AST ALT 72 H Alkaline Phosphatase Lactate Dehydrogenase Troponin T C-Reactive Protein NT-Pro-B Natriuret Pep Total Protein 5.2 L Albumin 2.2 L LDL Cholesterol Direct Vitamin B12 Crossmatch 11/13/21 11/13/21 11/13/21 06:30 08:30 11:19 WBC 21.2 H RBC 3.12 L Hgb 6.8 L Hct 23.2 L MCV 74 L MCH 22 L MCHC 29 L RDW 22.2 H Plt Count 135 L Seg Neuts % (Manual) Lymphocytes % (Manual) Seg Neutrophils # Man Lymphocytes # (Manual) Monocytes # (Manual) PT INR D-Dimer ABG pH ABG pO2 ABG HCO3 ABG O2 Saturation ABG Base Excess ABG Hemoglobin Oxyhemoglobin Sodium Potassium Chloride Carbon Dioxide BUN Creatinine Glucose POC Glucose 136 H Lactic Acid Calcium Phosphorus Magnesium AST ALT Alkaline Phosphatase Lactate Dehydrogenase Troponin T C-Reactive Protein NT-Pro-B Natriuret Pep Total Protein Albumin LDL Cholesterol Direct Vitamin B12 Crossmatch See Detail 11/13/21 11/14/21 11/14/21 18:21 00:01 04:46 WBC 20.0 H RBC 3.41 L Hgb 7.9 L Hct 26.8 L MCV MCH 23 L MCHC 29 L RDW 24.0 H Plt Count Seg Neuts % (Manual) Lymphocytes % (Manual) Seg Neutrophils # Man Lymphocytes # (Manual) Monocytes # (Manual) PT INR D-Dimer ABG pH ABG pO2 ABG HCO3 ABG O2 Saturation ABG Base Excess ABG Hemoglobin Oxyhemoglobin Sodium Potassium Chloride Carbon Dioxide BUN Creatinine Glucose POC Glucose 149 H 141 H Lactic Acid Calcium Phosphorus Magnesium AST ALT Alkaline Phosphatase Lactate Dehydrogenase Troponin T C-Reactive Protein NT-Pro-B Natriuret Pep Total Protein Albumin LDL Cholesterol Direct Vitamin B12 Crossmatch 11/14/21 11/14/21 11/14/21 04:46 05:10 11:10 WBC RBC Hgb Hct MCV MCH MCHC RDW Plt Count Seg Neuts % (Manual) Lymphocytes % (Manual) Seg Neutrophils # Man Lymphocytes # (Manual) Monocytes # (Manual) PT INR D-Dimer ABG pH ABG pO2 ABG HCO3 ABG O2 Saturation ABG Base Excess ABG Hemoglobin Oxyhemoglobin Sodium 148 H Potassium Chloride 113.1 H Carbon Dioxide BUN 43 H Creatinine Glucose 140 H POC Glucose 132 H 133 H Lactic Acid Calcium 7.5 L Phosphorus Magnesium AST ALT Alkaline Phosphatase Lactate Dehydrogenase Troponin T C-Reactive Protein NT-Pro-B Natriuret Pep Total Protein Albumin LDL Cholesterol Direct Vitamin B12 Crossmatch 11/14/21 11/14/21 11/14/21 16:14 17:48 23:23 WBC RBC Hgb Hct MCV MCH MCHC RDW Plt Count Seg Neuts % (Manual) Lymphocytes % (Manual) Seg Neutrophils # Man Lymphocytes # (Manual) Monocytes # (Manual) PT INR D-Dimer ABG pH ABG pO2 ABG HCO3 28.0 H ABG O2 Saturation ABG Base Excess 3.1 H ABG Hemoglobin 5.8 L Oxyhemoglobin 94.8 L Sodium Potassium Chloride Carbon Dioxide BUN Creatinine Glucose POC Glucose 130 H 136 H Lactic Acid Calcium Phosphorus Magnesium AST ALT Alkaline Phosphatase Lactate Dehydrogenase Troponin T C-Reactive Protein NT-Pro-B Natriuret Pep Total Protein Albumin LDL Cholesterol Direct Vitamin B12 Crossmatch 11/15/21 11/15/21 11/15/21 05:20 05:50 05:50 WBC 19.9 H RBC 3.50 L Hgb 8.2 L Hct 27.9 L MCV MCH 23 L MCHC 29 L RDW 24.9 H Plt Count Seg Neuts % (Manual) Lymphocytes % (Manual) Seg Neutrophils # Man Lymphocytes # (Manual) Monocytes # (Manual) PT INR D-Dimer ABG pH ABG pO2 ABG HCO3 ABG O2 Saturation ABG Base Excess ABG Hemoglobin Oxyhemoglobin Sodium 149 H Potassium Chloride 112.0 H Carbon Dioxide BUN 48 H Creatinine Glucose 152 H POC Glucose 137 H Lactic Acid Calcium 7.9 L Phosphorus Magnesium AST ALT Alkaline Phosphatase Lactate Dehydrogenase Troponin T C-Reactive Protein NT-Pro-B Natriuret Pep Total Protein Albumin LDL Cholesterol Direct Vitamin B12 Crossmatch 11/15/21 11/15/21 11/15/21 12:12 17:07 23:24 WBC RBC Hgb Hct MCV MCH MCHC RDW Plt Count Seg Neuts % (Manual) Lymphocytes % (Manual) Seg Neutrophils # Man Lymphocytes # (Manual) Monocytes # (Manual) PT INR D-Dimer ABG pH ABG pO2 ABG HCO3 ABG O2 Saturation ABG Base Excess ABG Hemoglobin Oxyhemoglobin Sodium Potassium Chloride Carbon Dioxide BUN Creatinine Glucose POC Glucose 114 H 135 H 123 H Lactic Acid Calcium Phosphorus Magnesium AST ALT Alkaline Phosphatase Lactate Dehydrogenase Troponin T C-Reactive Protein NT-Pro-B Natriuret Pep Total Protein Albumin LDL Cholesterol Direct Vitamin B12 Crossmatch 11/16/21 11/16/21 11/16/21 05:21 10:00 10:00 WBC 21.7 H RBC 2.57 L Hgb 6.0 L Hct 20.2 L D MCV MCH 24 L MCHC RDW 26.3 H Plt Count Seg Neuts % (Manual) Lymphocytes % (Manual) Seg Neutrophils # Man Lymphocytes # (Manual) Monocytes # (Manual) PT INR D-Dimer ABG pH ABG pO2 ABG HCO3 ABG O2 Saturation ABG Base Excess ABG Hemoglobin Oxyhemoglobin Sodium 153 H Potassium Chloride 114.9 H Carbon Dioxide BUN 74 H Creatinine Glucose 155 H POC Glucose 127 H Lactic Acid Calcium 8.1 L Phosphorus Magnesium AST ALT Alkaline Phosphatase Lactate Dehydrogenase Troponin T C-Reactive Protein NT-Pro-B Natriuret Pep Total Protein Albumin LDL Cholesterol Direct Vitamin B12 Crossmatch 11/16/21 11/16/21 11/16/21 11:34 14:00 15:25 WBC 17.2 H RBC 2.08 L Hgb 4.7 L* Hct 16.2 L* MCV 78 L MCH 23 L MCHC 29 L RDW 26.0 H Plt Count Seg Neuts % (Manual) 87.0 H Lymphocytes % (Manual) 8.0 L Seg Neutrophils # Man 15.0 H Lymphocytes # (Manual) Monocytes # (Manual) 0.9 H PT INR D-Dimer ABG pH ABG pO2 ABG HCO3 ABG O2 Saturation ABG Base Excess ABG Hemoglobin Oxyhemoglobin Sodium Potassium Chloride Carbon Dioxide BUN Creatinine Glucose POC Glucose 131 H Lactic Acid Calcium Phosphorus Magnesium AST ALT Alkaline Phosphatase Lactate Dehydrogenase Troponin T C-Reactive Protein NT-Pro-B Natriuret Pep Total Protein Albumin LDL Cholesterol Direct Vitamin B12 Crossmatch See Detail 11/16/21 11/16/21 11/16/21 15:25 17:21 22:43 WBC RBC Hgb 8.6 L D Hct 27.7 L D MCV MCH MCHC RDW Plt Count Seg Neuts % (Manual) Lymphocytes % (Manual) Seg Neutrophils # Man Lymphocytes # (Manual) Monocytes # (Manual) PT INR D-Dimer ABG pH ABG pO2 ABG HCO3 ABG O2 Saturation ABG Base Excess ABG Hemoglobin Oxyhemoglobin Sodium 148 H Potassium Chloride 113.2 H Carbon Dioxide BUN 84 H Creatinine Glucose 164 H POC Glucose 124 H Lactic Acid Calcium 7.6 L Phosphorus Magnesium AST ALT Alkaline Phosphatase Lactate Dehydrogenase Troponin T C-Reactive Protein NT-Pro-B Natriuret Pep Total Protein Albumin LDL Cholesterol Direct Vitamin B12 Crossmatch 11/16/21 11/17/21 11/17/21 23:07 05:33 05:56 WBC 25.1 H RBC 3.47 L Hgb 8.7 L Hct 28.5 L MCV MCH 25 L MCHC RDW 22.3 H Plt Count Seg Neuts % (Manual) Lymphocytes % (Manual) Seg Neutrophils # Man Lymphocytes # (Manual) Monocytes # (Manual) PT INR D-Dimer ABG pH ABG pO2 ABG HCO3 ABG O2 Saturation ABG Base Excess ABG Hemoglobin Oxyhemoglobin Sodium Potassium Chloride Carbon Dioxide BUN Creatinine Glucose POC Glucose 128 H 133 H Lactic Acid Calcium Phosphorus Magnesium AST ALT Alkaline Phosphatase Lactate Dehydrogenase Troponin T C-Reactive Protein NT-Pro-B Natriuret Pep Total Protein Albumin LDL Cholesterol Direct Vitamin B12 Crossmatch 11/17/21 11/17/21 11/17/21 05:56 11:00 11:55 WBC RBC Hgb 8.3 L Hct 26.9 L MCV MCH MCHC RDW Plt Count Seg Neuts % (Manual) Lymphocytes % (Manual) Seg Neutrophils # Man Lymphocytes # (Manual) Monocytes # (Manual) PT INR D-Dimer ABG pH ABG pO2 ABG HCO3 ABG O2 Saturation ABG Base Excess ABG Hemoglobin Oxyhemoglobin Sodium 151 H Potassium Chloride 113.6 H Carbon Dioxide BUN 85 H Creatinine Glucose 132 H POC Glucose 121 H Lactic Acid Calcium 7.8 L Phosphorus Magnesium AST ALT Alkaline Phosphatase Lactate Dehydrogenase Troponin T C-Reactive Protein NT-Pro-B Natriuret Pep Total Protein 5.1 L Albumin 2.2 L LDL Cholesterol Direct Vitamin B12 Crossmatch 11/17/21 11/17/21 11/18/21 18:04 18:55 00:26 WBC RBC Hgb 7.5 L 7.1 L Hct 24.8 L 23.6 L MCV MCH MCHC RDW Plt Count Seg Neuts % (Manual) Lymphocytes % (Manual) Seg Neutrophils # Man Lymphocytes # (Manual) Monocytes # (Manual) PT INR D-Dimer ABG pH ABG pO2 ABG HCO3 ABG O2 Saturation ABG Base Excess ABG Hemoglobin Oxyhemoglobin Sodium Potassium Chloride Carbon Dioxide BUN Creatinine Glucose POC Glucose 144 H Lactic Acid Calcium Phosphorus Magnesium AST ALT Alkaline Phosphatase Lactate Dehydrogenase Troponin T C-Reactive Protein NT-Pro-B Natriuret Pep Total Protein Albumin LDL Cholesterol Direct Vitamin B12 Crossmatch 11/18/21 11/18/21 11/18/21 00:43 05:10 05:10 WBC 12.5 H RBC 2.39 L Hgb 6.1 L Hct 20.2 L MCV MCH 25 L MCHC RDW 23.2 H Plt Count Seg Neuts % (Manual) Lymphocytes % (Manual) Seg Neutrophils # Man Lymphocytes # (Manual) Monocytes # (Manual) PT INR D-Dimer ABG pH ABG pO2 ABG HCO3 ABG O2 Saturation ABG Base Excess ABG Hemoglobin Oxyhemoglobin Sodium 131 L D Potassium 2.9 L* D Chloride 97.8 L Carbon Dioxide BUN 58 H Creatinine Glucose 665 H* POC Glucose 139 H Lactic Acid Calcium 7.0 L Phosphorus 2.20 L D Magnesium 1.50 L AST ALT Alkaline Phosphatase Lactate Dehydrogenase Troponin T C-Reactive Protein NT-Pro-B Natriuret Pep Total Protein Albumin LDL Cholesterol Direct Vitamin B12 Crossmatch 11/18/21 11/18/21 11/18/21 05:23 07:10 10:45 WBC RBC Hgb Hct MCV MCH MCHC RDW Plt Count Seg Neuts % (Manual) Lymphocytes % (Manual) Seg Neutrophils # Man Lymphocytes # (Manual) Monocytes # (Manual) PT INR D-Dimer ABG pH ABG pO2 ABG HCO3 ABG O2 Saturation ABG Base Excess ABG Hemoglobin Oxyhemoglobin Sodium 148 H D Potassium 3.1 L Chloride 111.9 H Carbon Dioxide BUN 63 H Creatinine Glucose 141 H POC Glucose 124 H Lactic Acid Calcium 8.1 L D Phosphorus Magnesium AST ALT Alkaline Phosphatase Lactate Dehydrogenase Troponin T C-Reactive Protein NT-Pro-B Natriuret Pep Total Protein Albumin LDL Cholesterol Direct Vitamin B12 Crossmatch See Detail 11/18/21 11/19/21 11/19/21 11:57 00:19 04:55 WBC RBC 3.35 L Hgb 9.0 L 8.9 L Hct 28.3 L D 28.1 L MCV MCH 27 L MCHC RDW 20.3 H Plt Count Seg Neuts % (Manual) Lymphocytes % (Manual) Seg Neutrophils # Man Lymphocytes # (Manual) Monocytes # (Manual) PT INR D-Dimer ABG pH ABG pO2 ABG HCO3 ABG O2 Saturation ABG Base Excess ABG Hemoglobin Oxyhemoglobin Sodium Potassium Chloride Carbon Dioxide BUN Creatinine Glucose POC Glucose 119 H Lactic Acid Calcium Phosphorus Magnesium AST ALT Alkaline Phosphatase Lactate Dehydrogenase Troponin T C-Reactive Protein NT-Pro-B Natriuret Pep Total Protein Albumin LDL Cholesterol Direct Vitamin B12 Crossmatch 11/19/21 11/19/21 11/20/21 04:55 05:42 00:55 WBC RBC Hgb 9.0 L Hct 28.6 L MCV MCH MCHC RDW Plt Count Seg Neuts % (Manual) Lymphocytes % (Manual) Seg Neutrophils # Man Lymphocytes # (Manual) Monocytes # (Manual) PT INR D-Dimer ABG pH ABG pO2 ABG HCO3 ABG O2 Saturation ABG Base Excess ABG Hemoglobin Oxyhemoglobin Sodium Potassium 3.5 L Chloride 108.6 H Carbon Dioxide BUN 47 H Creatinine Glucose 207 H POC Glucose 63 L Lactic Acid Calcium 7.1 L Phosphorus Magnesium AST ALT Alkaline Phosphatase Lactate Dehydrogenase Troponin T C-Reactive Protein NT-Pro-B Natriuret Pep Total Protein Albumin LDL Cholesterol Direct Vitamin B12 Crossmatch 11/20/21 11/20/21 11/20/21 05:40 05:40 Unknown WBC RBC 3.40 L Hgb 9.1 L Hct 28.8 L MCV MCH 27 L MCHC RDW 20.7 H Plt Count Seg Neuts % (Manual) Lymphocytes % (Manual) Seg Neutrophils # Man Lymphocytes # (Manual) Monocytes # (Manual) PT INR D-Dimer ABG pH ABG pO2 ABG HCO3 ABG O2 Saturation ABG Base Excess -2.7 L ABG Hemoglobin 9.5 L Oxyhemoglobin 94.3 L Sodium Potassium 3.5 L Chloride 108.9 H Carbon Dioxide BUN 37 H Creatinine Glucose 117 H POC Glucose Lactic Acid Calcium 7.5 L Phosphorus Magnesium AST ALT Alkaline Phosphatase Lactate Dehydrogenase Troponin T C-Reactive Protein NT-Pro-B Natriuret Pep Total Protein Albumin LDL Cholesterol Direct Vitamin B12 Crossmatch 11/21/21 11/21/21 11/21/21 04:30 04:30 16:00 WBC RBC 3.25 L Hgb 8.6 L Hct 28.1 L MCV MCH 26 L MCHC RDW 20.7 H Plt Count Seg Neuts % (Manual) Lymphocytes % (Manual) Seg Neutrophils # Man Lymphocytes # (Manual) Monocytes # (Manual) PT INR D-Dimer ABG pH ABG pO2 114.2 H ABG HCO3 ABG O2 Saturation ABG Base Excess ABG Hemoglobin 9.1 L Oxyhemoglobin Sodium 134 L Potassium Chloride Carbon Dioxide 20 L BUN 34 H Creatinine Glucose POC Glucose Lactic Acid Calcium 7.1 L Phosphorus Magnesium AST ALT Alkaline Phosphatase Lactate Dehydrogenase Troponin T C-Reactive Protein NT-Pro-B Natriuret Pep Total Protein Albumin LDL Cholesterol Direct Vitamin B12 Crossmatch 11/22/21 11/22/21 11/22/21 07:07 07:07 23:54 WBC RBC 3.30 L Hgb 9.0 L Hct 28.5 L MCV MCH 27 L MCHC RDW 21.0 H Plt Count Seg Neuts % (Manual) Lymphocytes % (Manual) Seg Neutrophils # Man Lymphocytes # (Manual) Monocytes # (Manual) PT INR D-Dimer ABG pH ABG pO2 ABG HCO3 ABG O2 Saturation ABG Base Excess ABG Hemoglobin Oxyhemoglobin Sodium Potassium Chloride Carbon Dioxide BUN 32 H Creatinine Glucose 106 H POC Glucose 110 H Lactic Acid Calcium 7.5 L Phosphorus Magnesium AST ALT Alkaline Phosphatase Lactate Dehydrogenase Troponin T C-Reactive Protein NT-Pro-B Natriuret Pep Total Protein Albumin LDL Cholesterol Direct Vitamin B12 Crossmatch 11/23/21 11/23/21 11/23/21 04:38 04:38 06:01 WBC RBC 3.23 L Hgb 8.8 L Hct 28.0 L MCV MCH 27 L MCHC RDW 21.3 H Plt Count Seg Neuts % (Manual) Lymphocytes % (Manual) Seg Neutrophils # Man Lymphocytes # (Manual) Monocytes # (Manual) PT INR D-Dimer ABG pH ABG pO2 ABG HCO3 ABG O2 Saturation ABG Base Excess ABG Hemoglobin Oxyhemoglobin Sodium 136 L Potassium Chloride Carbon Dioxide 20 L BUN 32 H Creatinine Glucose 109 H POC Glucose 115 H Lactic Acid Calcium 7.7 L Phosphorus Magnesium AST ALT Alkaline Phosphatase Lactate Dehydrogenase Troponin T C-Reactive Protein NT-Pro-B Natriuret Pep Total Protein Albumin LDL Cholesterol Direct Vitamin B12 Crossmatch 11/23/21 11/24/21 11/24/21 11:40 00:03 04:13 WBC RBC 3.18 L Hgb 8.5 L Hct 27.5 L MCV MCH 27 L MCHC RDW 21.6 H Plt Count Seg Neuts % (Manual) Lymphocytes % (Manual) Seg Neutrophils # Man Lymphocytes # (Manual) Monocytes # (Manual) PT INR D-Dimer ABG pH ABG pO2 ABG HCO3 ABG O2 Saturation ABG Base Excess ABG Hemoglobin Oxyhemoglobin Sodium Potassium Chloride Carbon Dioxide BUN Creatinine Glucose POC Glucose 117 H 111 H Lactic Acid Calcium Phosphorus Magnesium AST ALT Alkaline Phosphatase Lactate Dehydrogenase Troponin T C-Reactive Protein NT-Pro-B Natriuret Pep Total Protein Albumin LDL Cholesterol Direct Vitamin B12 Crossmatch 11/24/21 11/24/21 11/24/21 04:13 05:30 11:10 WBC RBC Hgb Hct MCV MCH MCHC RDW Plt Count Seg Neuts % (Manual) Lymphocytes % (Manual) Seg Neutrophils # Man Lymphocytes # (Manual) Monocytes # (Manual) PT INR D-Dimer ABG pH ABG pO2 ABG HCO3 ABG O2 Saturation ABG Base Excess ABG Hemoglobin Oxyhemoglobin Sodium Potassium Chloride Carbon Dioxide BUN 31 H Creatinine Glucose 101 H POC Glucose 115 H 107 H Lactic Acid Calcium 7.7 L Phosphorus Magnesium AST ALT Alkaline Phosphatase Lactate Dehydrogenase Troponin T C-Reactive Protein NT-Pro-B Natriuret Pep Total Protein Albumin LDL Cholesterol Direct Vitamin B12 Crossmatch 11/24/21 11/24/21 11/25/21 16:34 17:57 05:12 WBC RBC 3.11 L Hgb 8.2 L Hct 26.6 L MCV MCH 26 L MCHC RDW 21.3 H Plt Count Seg Neuts % (Manual) Lymphocytes % (Manual) Seg Neutrophils # Man Lymphocytes # (Manual) Monocytes # (Manual) PT INR D-Dimer ABG pH ABG pO2 ABG HCO3 ABG O2 Saturation ABG Base Excess ABG Hemoglobin Oxyhemoglobin Sodium Potassium Chloride Carbon Dioxide BUN Creatinine Glucose POC Glucose 115 H 110 H Lactic Acid Calcium Phosphorus Magnesium AST ALT Alkaline Phosphatase Lactate Dehydrogenase Troponin T C-Reactive Protein NT-Pro-B Natriuret Pep Total Protein Albumin LDL Cholesterol Direct Vitamin B12 Crossmatch 11/25/21 11/25/21 11/26/21 05:12 11:20 05:00 WBC RBC 3.30 L Hgb 8.8 L Hct 28.2 L MCV MCH 27 L MCHC RDW 20.7 H Plt Count Seg Neuts % (Manual) Lymphocytes % (Manual) Seg Neutrophils # Man Lymphocytes # (Manual) Monocytes # (Manual) PT INR D-Dimer ABG pH ABG pO2 ABG HCO3 ABG O2 Saturation ABG Base Excess ABG Hemoglobin Oxyhemoglobin Sodium Potassium Chloride Carbon Dioxide BUN 32 H Creatinine Glucose 118 H POC Glucose 118 H Lactic Acid Calcium 8.2 L Phosphorus Magnesium AST ALT Alkaline Phosphatase Lactate Dehydrogenase Troponin T C-Reactive Protein NT-Pro-B Natriuret Pep Total Protein Albumin LDL Cholesterol Direct Vitamin B12 Crossmatch 11/26/21 11/26/21 11/26/21 05:00 05:00 05:44 WBC RBC Hgb Hct MCV MCH MCHC RDW Plt Count Seg Neuts % (Manual) Lymphocytes % (Manual) Seg Neutrophils # Man Lymphocytes # (Manual) Monocytes # (Manual) PT 16.9 H INR 1.24 H D-Dimer ABG pH ABG pO2 ABG HCO3 ABG O2 Saturation ABG Base Excess ABG Hemoglobin Oxyhemoglobin Sodium Potassium Chloride Carbon Dioxide BUN 31 H Creatinine Glucose 104 H POC Glucose 110 H Lactic Acid Calcium 7.9 L Phosphorus Magnesium AST ALT Alkaline Phosphatase Lactate Dehydrogenase Troponin T C-Reactive Protein NT-Pro-B Natriuret Pep Total Protein Albumin LDL Cholesterol Direct Vitamin B12 Crossmatch 11/26/21 11/27/21 11/27/21 23:55 07:40 07:40 WBC RBC 3.18 L Hgb 8.5 L Hct 27.0 L MCV MCH 27 L MCHC RDW 21.2 H Plt Count Seg Neuts % (Manual) Lymphocytes % (Manual) Seg Neutrophils # Man Lymphocytes # (Manual) Monocytes # (Manual) PT INR D-Dimer ABG pH ABG pO2 ABG HCO3 ABG O2 Saturation ABG Base Excess ABG Hemoglobin Oxyhemoglobin Sodium Potassium Chloride Carbon Dioxide BUN 27 H Creatinine Glucose 112 H POC Glucose 63 L Lactic Acid Calcium 7.6 L Phosphorus Magnesium AST ALT Alkaline Phosphatase Lactate Dehydrogenase Troponin T C-Reactive Protein NT-Pro-B Natriuret Pep Total Protein Albumin LDL Cholesterol Direct Vitamin B12 Crossmatch 11/27/21 11/27/21 11/27/21 12:04 13:40 13:40 WBC RBC 3.31 L Hgb 8.7 L Hct 28.0 L MCV MCH 26 L MCHC RDW 20.7 H Plt Count Seg Neuts % (Manual) Lymphocytes % (Manual) Seg Neutrophils # Man Lymphocytes # (Manual) Monocytes # (Manual) PT INR D-Dimer ABG pH ABG pO2 ABG HCO3 ABG O2 Saturation ABG Base Excess ABG Hemoglobin Oxyhemoglobin Sodium 136 L Potassium Chloride Carbon Dioxide BUN 25 H Creatinine Glucose 127 H POC Glucose 109 H Lactic Acid Calcium 7.6 L Phosphorus Magnesium 1.40 L AST ALT Alkaline Phosphatase Lactate Dehydrogenase Troponin T C-Reactive Protein NT-Pro-B Natriuret Pep Total Protein Albumin LDL Cholesterol Direct Vitamin B12 Crossmatch 11/27/21 11/27/21 11/28/21 17:44 23:33 12:20 WBC RBC Hgb Hct MCV MCH MCHC RDW Plt Count Seg Neuts % (Manual) Lymphocytes % (Manual) Seg Neutrophils # Man Lymphocytes # (Manual) Monocytes # (Manual) PT INR D-Dimer ABG pH ABG pO2 ABG HCO3 ABG O2 Saturation ABG Base Excess ABG Hemoglobin Oxyhemoglobin Sodium Potassium Chloride Carbon Dioxide BUN Creatinine Glucose POC Glucose 107 H 108 H 114 H Lactic Acid Calcium Phosphorus Magnesium AST ALT Alkaline Phosphatase Lactate Dehydrogenase Troponin T C-Reactive Protein NT-Pro-B Natriuret Pep Total Protein Albumin LDL Cholesterol Direct Vitamin B12 Crossmatch 11/29/21 11/29/21 11/29/21 00:09 03:20 03:20 WBC RBC 3.05 L Hgb 8.2 L Hct 25.8 L MCV MCH 27 L MCHC RDW 20.9 H Plt Count Seg Neuts % (Manual) Lymphocytes % (Manual) Seg Neutrophils # Man Lymphocytes # (Manual) Monocytes # (Manual) PT INR D-Dimer ABG pH ABG pO2 ABG HCO3 ABG O2 Saturation ABG Base Excess ABG Hemoglobin Oxyhemoglobin Sodium 133 L Potassium Chloride Carbon Dioxide BUN 24 H Creatinine Glucose 137 H POC Glucose 134 H Lactic Acid Calcium 7.4 L Phosphorus Magnesium AST ALT Alkaline Phosphatase Lactate Dehydrogenase Troponin T C-Reactive Protein NT-Pro-B Natriuret Pep Total Protein Albumin LDL Cholesterol Direct Vitamin B12 Crossmatch 11/29/21 11/29/21 11/29/21 05:38 11:39 17:11 WBC RBC Hgb Hct MCV MCH MCHC RDW Plt Count Seg Neuts % (Manual) Lymphocytes % (Manual) Seg Neutrophils # Man Lymphocytes # (Manual) Monocytes # (Manual) PT INR D-Dimer ABG pH ABG pO2 ABG HCO3 ABG O2 Saturation ABG Base Excess ABG Hemoglobin Oxyhemoglobin Sodium Potassium Chloride Carbon Dioxide BUN Creatinine Glucose POC Glucose 117 H 143 H 124 H Lactic Acid Calcium Phosphorus Magnesium AST ALT Alkaline Phosphatase Lactate Dehydrogenase Troponin T C-Reactive Protein NT-Pro-B Natriuret Pep Total Protein Albumin LDL Cholesterol Direct Vitamin B12 Crossmatch 11/29/21 11/30/21 11/30/21 20:15 05:40 05:40 WBC 12.6 H RBC 3.41 L Hgb 9.1 L Hct 28.9 L MCV MCH 27 L MCHC RDW 20.4 H Plt Count Seg Neuts % (Manual) Lymphocytes % (Manual) Seg Neutrophils # Man Lymphocytes # (Manual) Monocytes # (Manual) PT INR D-Dimer ABG pH ABG pO2 ABG HCO3 ABG O2 Saturation ABG Base Excess ABG Hemoglobin Oxyhemoglobin Sodium Potassium Chloride Carbon Dioxide BUN 24 H Creatinine Glucose 131 H POC Glucose Lactic Acid Calcium 7.6 L Phosphorus Magnesium AST ALT Alkaline Phosphatase Lactate Dehydrogenase Troponin T 0.045 H C-Reactive Protein NT-Pro-B Natriuret Pep Total Protein Albumin LDL Cholesterol Direct 25 L Vitamin B12 Crossmatch 11/30/21 11/30/21 12/01/21 11:29 16:51 05:00 WBC RBC 2.97 L Hgb 8.0 L Hct 25.0 L MCV MCH 27 L MCHC RDW 20.8 H Plt Count Seg Neuts % (Manual) Lymphocytes % (Manual) Seg Neutrophils # Man Lymphocytes # (Manual) Monocytes # (Manual) PT INR D-Dimer ABG pH ABG pO2 ABG HCO3 ABG O2 Saturation ABG Base Excess ABG Hemoglobin Oxyhemoglobin Sodium Potassium Chloride Carbon Dioxide BUN Creatinine Glucose POC Glucose 123 H 114 H Lactic Acid Calcium Phosphorus Magnesium AST ALT Alkaline Phosphatase Lactate Dehydrogenase Troponin T C-Reactive Protein NT-Pro-B Natriuret Pep Total Protein Albumin LDL Cholesterol Direct Vitamin B12 Crossmatch 12/01/21 12/01/21 12/01/21 05:00 05:25 11:54 WBC RBC Hgb Hct MCV MCH MCHC RDW Plt Count Seg Neuts % (Manual) Lymphocytes % (Manual) Seg Neutrophils # Man Lymphocytes # (Manual) Monocytes # (Manual) PT INR D-Dimer ABG pH ABG pO2 ABG HCO3 ABG O2 Saturation ABG Base Excess ABG Hemoglobin Oxyhemoglobin Sodium 136 L Potassium Chloride Carbon Dioxide BUN 24 H Creatinine Glucose 117 H POC Glucose 108 H 107 H Lactic Acid Calcium 7.5 L Phosphorus Magnesium 1.60 L AST ALT Alkaline Phosphatase Lactate Dehydrogenase Troponin T C-Reactive Protein NT-Pro-B Natriuret Pep Total Protein Albumin LDL Cholesterol Direct Vitamin B12 Crossmatch 12/01/21 12/02/21 12/02/21 17:40 00:07 04:20 WBC RBC 2.92 L Hgb 7.7 L Hct 24.3 L MCV MCH 26 L MCHC RDW 20.5 H Plt Count Seg Neuts % (Manual) Lymphocytes % (Manual) Seg Neutrophils # Man Lymphocytes # (Manual) Monocytes # (Manual) PT INR D-Dimer ABG pH ABG pO2 ABG HCO3 ABG O2 Saturation ABG Base Excess ABG Hemoglobin Oxyhemoglobin Sodium Potassium Chloride Carbon Dioxide BUN Creatinine Glucose POC Glucose 123 H 110 H Lactic Acid Calcium Phosphorus Magnesium AST ALT Alkaline Phosphatase Lactate Dehydrogenase Troponin T C-Reactive Protein NT-Pro-B Natriuret Pep Total Protein Albumin LDL Cholesterol Direct Vitamin B12 Crossmatch 12/02/21 12/02/21 12/02/21 04:20 11:17 18:20 WBC RBC Hgb Hct MCV MCH MCHC RDW Plt Count Seg Neuts % (Manual) Lymphocytes % (Manual) Seg Neutrophils # Man Lymphocytes # (Manual) Monocytes # (Manual) PT INR D-Dimer ABG pH ABG pO2 ABG HCO3 ABG O2 Saturation ABG Base Excess ABG Hemoglobin Oxyhemoglobin Sodium 135 L Potassium Chloride Carbon Dioxide BUN 26 H Creatinine Glucose 121 H POC Glucose 117 H 113 H Lactic Acid Calcium 7.4 L Phosphorus Magnesium AST ALT Alkaline Phosphatase Lactate Dehydrogenase Troponin T C-Reactive Protein NT-Pro-B Natriuret Pep Total Protein Albumin LDL Cholesterol Direct Vitamin B12 Crossmatch 12/03/21 12/03/21 12/03/21 00:12 04:00 04:00 WBC RBC 2.99 L Hgb 7.8 L Hct 24.6 L MCV MCH 26 L MCHC RDW 20.2 H Plt Count Seg Neuts % (Manual) Lymphocytes % (Manual) Seg Neutrophils # Man Lymphocytes # (Manual) Monocytes # (Manual) PT INR D-Dimer ABG pH ABG pO2 ABG HCO3 ABG O2 Saturation ABG Base Excess ABG Hemoglobin Oxyhemoglobin Sodium 136 L Potassium Chloride Carbon Dioxide BUN 27 H Creatinine Glucose 133 H POC Glucose 121 H Lactic Acid Calcium 7.5 L Phosphorus Magnesium AST ALT Alkaline Phosphatase Lactate Dehydrogenase Troponin T C-Reactive Protein NT-Pro-B Natriuret Pep Total Protein Albumin LDL Cholesterol Direct Vitamin B12 Crossmatch 12/03/21 12/03/21 12/03/21 06:30 11:13 16:00 WBC RBC Hgb Hct MCV MCH MCHC RDW Plt Count Seg Neuts % (Manual) Lymphocytes % (Manual) Seg Neutrophils # Man Lymphocytes # (Manual) Monocytes # (Manual) PT INR D-Dimer ABG pH ABG pO2 ABG HCO3 ABG O2 Saturation ABG Base Excess ABG Hemoglobin Oxyhemoglobin Sodium Potassium Chloride Carbon Dioxide BUN Creatinine Glucose POC Glucose 129 H 125 H 125 H Lactic Acid Calcium Phosphorus Magnesium AST ALT Alkaline Phosphatase Lactate Dehydrogenase Troponin T C-Reactive Protein NT-Pro-B Natriuret Pep Total Protein Albumin LDL Cholesterol Direct Vitamin B12 Crossmatch 12/03/21 12/04/21 12/04/21 23:32 04:00 05:36 WBC RBC Hgb Hct MCV MCH MCHC RDW Plt Count Seg Neuts % (Manual) Lymphocytes % (Manual) Seg Neutrophils # Man Lymphocytes # (Manual) Monocytes # (Manual) PT INR D-Dimer ABG pH ABG pO2 ABG HCO3 ABG O2 Saturation ABG Base Excess ABG Hemoglobin Oxyhemoglobin Sodium Potassium 3.5 L Chloride Carbon Dioxide BUN 26 H Creatinine 0.5 L Glucose 151 H POC Glucose 133 H 142 H Lactic Acid Calcium 8.3 L Phosphorus Magnesium AST ALT Alkaline Phosphatase Lactate Dehydrogenase Troponin T C-Reactive Protein NT-Pro-B Natriuret Pep Total Protein Albumin LDL Cholesterol Direct Vitamin B12 Crossmatch 12/04/21 12/04/21 12/05/21 11:24 15:58 04:36 WBC RBC Hgb Hct MCV MCH MCHC RDW Plt Count Seg Neuts % (Manual) Lymphocytes % (Manual) Seg Neutrophils # Man Lymphocytes # (Manual) Monocytes # (Manual) PT INR D-Dimer ABG pH ABG pO2 ABG HCO3 ABG O2 Saturation ABG Base Excess ABG Hemoglobin Oxyhemoglobin Sodium Potassium Chloride Carbon Dioxide BUN 21 H Creatinine 0.5 L Glucose 119 H POC Glucose 130 H 111 H Lactic Acid Calcium 8.3 L Phosphorus Magnesium AST ALT Alkaline Phosphatase Lactate Dehydrogenase Troponin T C-Reactive Protein NT-Pro-B Natriuret Pep Total Protein Albumin LDL Cholesterol Direct Vitamin B12 Crossmatch 12/05/21 12/05/21 12/05/21 05:15 10:40 11:12 WBC RBC 2.98 L Hgb 8.1 L Hct 24.6 L MCV MCH 27 L MCHC RDW 20.8 H Plt Count Seg Neuts % (Manual) Lymphocytes % (Manual) Seg Neutrophils # Man Lymphocytes # (Manual) Monocytes # (Manual) PT INR D-Dimer ABG pH ABG pO2 ABG HCO3 ABG O2 Saturation ABG Base Excess ABG Hemoglobin Oxyhemoglobin Sodium Potassium Chloride Carbon Dioxide BUN Creatinine Glucose POC Glucose 107 H 110 H Lactic Acid Calcium Phosphorus Magnesium AST ALT Alkaline Phosphatase Lactate Dehydrogenase Troponin T C-Reactive Protein NT-Pro-B Natriuret Pep Total Protein Albumin LDL Cholesterol Direct Vitamin B12 Crossmatch 12/05/21 12/06/21 12/06/21 23:39 04:25 04:25 WBC RBC 2.95 L Hgb 7.9 L Hct 24.7 L MCV MCH 27 L MCHC RDW 20.9 H Plt Count Seg Neuts % (Manual) Lymphocytes % (Manual) Seg Neutrophils # Man Lymphocytes # (Manual) Monocytes # (Manual) PT INR D-Dimer ABG pH ABG pO2 ABG HCO3 ABG O2 Saturation ABG Base Excess ABG Hemoglobin Oxyhemoglobin Sodium Potassium Chloride Carbon Dioxide BUN 22 H Creatinine 0.5 L Glucose 136 H POC Glucose 118 H Lactic Acid Calcium 8.2 L Phosphorus Magnesium AST ALT Alkaline Phosphatase Lactate Dehydrogenase Troponin T C-Reactive Protein NT-Pro-B Natriuret Pep Total Protein Albumin LDL Cholesterol Direct Vitamin B12 Crossmatch 12/06/21 12/06/21 12/07/21 05:28 11:27 04:00 WBC RBC Hgb 7.2 L Hct 21.8 L MCV MCH MCHC RDW Plt Count Seg Neuts % (Manual) Lymphocytes % (Manual) Seg Neutrophils # Man Lymphocytes # (Manual) Monocytes # (Manual) PT INR D-Dimer ABG pH ABG pO2 ABG HCO3 ABG O2 Saturation ABG Base Excess ABG Hemoglobin Oxyhemoglobin Sodium Potassium Chloride Carbon Dioxide BUN Creatinine Glucose POC Glucose 142 H 126 H Lactic Acid Calcium Phosphorus Magnesium AST ALT Alkaline Phosphatase Lactate Dehydrogenase Troponin T C-Reactive Protein NT-Pro-B Natriuret Pep Total Protein Albumin LDL Cholesterol Direct Vitamin B12 Crossmatch 12/07/21 12/07/21 12/07/21 04:00 05:30 11:12 WBC RBC Hgb Hct MCV MCH MCHC RDW Plt Count Seg Neuts % (Manual) Lymphocytes % (Manual) Seg Neutrophils # Man Lymphocytes # (Manual) Monocytes # (Manual) PT INR D-Dimer ABG pH ABG pO2 ABG HCO3 ABG O2 Saturation ABG Base Excess ABG Hemoglobin Oxyhemoglobin Sodium Potassium Chloride Carbon Dioxide BUN 22 H Creatinine Glucose 119 H POC Glucose 121 H 124 H Lactic Acid Calcium 8.0 L Phosphorus Magnesium AST ALT Alkaline Phosphatase Lactate Dehydrogenase Troponin T C-Reactive Protein NT-Pro-B Natriuret Pep Total Protein Albumin LDL Cholesterol Direct Vitamin B12 Crossmatch 12/08/21 12/08/21 12/08/21 04:00 04:00 05:39 WBC RBC 2.81 L Hgb 7.7 L Hct 23.5 L MCV MCH MCHC RDW 21.2 H Plt Count Seg Neuts % (Manual) Lymphocytes % (Manual) Seg Neutrophils # Man Lymphocytes # (Manual) Monocytes # (Manual) PT INR D-Dimer ABG pH ABG pO2 ABG HCO3 ABG O2 Saturation ABG Base Excess ABG Hemoglobin Oxyhemoglobin Sodium 135 L Potassium Chloride Carbon Dioxide BUN 23 H Creatinine Glucose 109 H POC Glucose 112 H Lactic Acid Calcium Phosphorus Magnesium AST ALT Alkaline Phosphatase Lactate Dehydrogenase Troponin T C-Reactive Protein NT-Pro-B Natriuret Pep Total Protein Albumin LDL Cholesterol Direct Vitamin B12 Crossmatch 12/08/21 12/09/21 12/09/21 11:03 04:20 04:20 WBC RBC 2.67 L Hgb 7.6 L Hct 22.1 L MCV MCH MCHC RDW 20.8 H Plt Count Seg Neuts % (Manual) Lymphocytes % (Manual) Seg Neutrophils # Man Lymphocytes # (Manual) Monocytes # (Manual) PT INR D-Dimer ABG pH ABG pO2 ABG HCO3 ABG O2 Saturation ABG Base Excess ABG Hemoglobin Oxyhemoglobin Sodium 135 L Potassium Chloride 97.8 L Carbon Dioxide BUN 26 H Creatinine Glucose 119 H POC Glucose 108 H Lactic Acid Calcium 7.7 L Phosphorus Magnesium AST ALT Alkaline Phosphatase Lactate Dehydrogenase Troponin T C-Reactive Protein NT-Pro-B Natriuret Pep Total Protein Albumin LDL Cholesterol Direct Vitamin B12 Crossmatch 12/09/21 12/10/21 12/10/21 11:26 04:33 11:12 WBC RBC Hgb Hct MCV MCH MCHC RDW Plt Count Seg Neuts % (Manual) Lymphocytes % (Manual) Seg Neutrophils # Man Lymphocytes # (Manual) Monocytes # (Manual) PT INR D-Dimer ABG pH ABG pO2 ABG HCO3 ABG O2 Saturation ABG Base Excess ABG Hemoglobin Oxyhemoglobin Sodium 136 L Potassium Chloride Carbon Dioxide BUN 27 H Creatinine Glucose 117 H POC Glucose 110 H 117 H Lactic Acid Calcium 8.2 L Phosphorus Magnesium AST ALT Alkaline Phosphatase Lactate Dehydrogenase Troponin T C-Reactive Protein NT-Pro-B Natriuret Pep Total Protein Albumin LDL Cholesterol Direct Vitamin B12 Crossmatch 12/10/21 12/10/21 12/11/21 16:02 23:31 04:35 WBC RBC 2.57 L Hgb 7.0 L Hct 21.4 L MCV MCH 27 L MCHC RDW 21.1 H Plt Count Seg Neuts % (Manual) Lymphocytes % (Manual) Seg Neutrophils # Man Lymphocytes # (Manual) Monocytes # (Manual) PT INR D-Dimer ABG pH ABG pO2 ABG HCO3 ABG O2 Saturation ABG Base Excess ABG Hemoglobin Oxyhemoglobin Sodium Potassium Chloride Carbon Dioxide BUN Creatinine Glucose POC Glucose 137 H 111 H Lactic Acid Calcium Phosphorus Magnesium AST ALT Alkaline Phosphatase Lactate Dehydrogenase Troponin T C-Reactive Protein NT-Pro-B Natriuret Pep Total Protein Albumin LDL Cholesterol Direct Vitamin B12 Crossmatch 12/11/21 12/11/21 12/11/21 04:35 12:46 16:07 WBC RBC Hgb Hct MCV MCH MCHC RDW Plt Count Seg Neuts % (Manual) Lymphocytes % (Manual) Seg Neutrophils # Man Lymphocytes # (Manual) Monocytes # (Manual) PT INR D-Dimer ABG pH ABG pO2 ABG HCO3 ABG O2 Saturation ABG Base Excess ABG Hemoglobin Oxyhemoglobin Sodium 136 L Potassium Chloride Carbon Dioxide BUN 27 H Creatinine Glucose 112 H POC Glucose 115 H 111 H Lactic Acid Calcium 7.6 L Phosphorus Magnesium AST ALT Alkaline Phosphatase Lactate Dehydrogenase Troponin T C-Reactive Protein NT-Pro-B Natriuret Pep Total Protein Albumin LDL Cholesterol Direct Vitamin B12 Crossmatch 12/11/21 12/12/21 12/12/21 23:42 04:30 04:30 WBC RBC 2.60 L Hgb 7.1 L Hct 21.5 L MCV MCH 27 L MCHC RDW 20.3 H Plt Count Seg Neuts % (Manual) Lymphocytes % (Manual) Seg Neutrophils # Man Lymphocytes # (Manual) Monocytes # (Manual) PT INR D-Dimer ABG pH ABG pO2 ABG HCO3 ABG O2 Saturation ABG Base Excess ABG Hemoglobin Oxyhemoglobin Sodium 135 L Potassium Chloride 97.9 L Carbon Dioxide BUN 26 H Creatinine 0.5 L Glucose 138 H POC Glucose 115 H Lactic Acid Calcium 8.2 L Phosphorus Magnesium AST ALT Alkaline Phosphatase Lactate Dehydrogenase Troponin T C-Reactive Protein NT-Pro-B Natriuret Pep Total Protein Albumin LDL Cholesterol Direct Vitamin B12 Crossmatch 12/12/21 12/12/21 12/12/21 04:30 05:10 11:51 WBC RBC Hgb Hct MCV MCH MCHC RDW Plt Count Seg Neuts % (Manual) Lymphocytes % (Manual) Seg Neutrophils # Man Lymphocytes # (Manual) Monocytes # (Manual) PT INR D-Dimer ABG pH ABG pO2 ABG HCO3 ABG O2 Saturation ABG Base Excess ABG Hemoglobin Oxyhemoglobin Sodium Potassium Chloride Carbon Dioxide BUN Creatinine Glucose POC Glucose 119 H 119 H Lactic Acid Calcium Phosphorus Magnesium AST ALT Alkaline Phosphatase Lactate Dehydrogenase Troponin T C-Reactive Protein NT-Pro-B Natriuret Pep Total Protein Albumin LDL Cholesterol Direct Vitamin B12 Crossmatch See Detail 12/13/21 12/13/21 12/13/21 00:52 04:00 04:00 WBC RBC 2.73 L Hgb 7.4 L Hct 22.8 L MCV MCH 27 L MCHC RDW 20.5 H Plt Count Seg Neuts % (Manual) Lymphocytes % (Manual) Seg Neutrophils # Man Lymphocytes # (Manual) Monocytes # (Manual) PT INR D-Dimer ABG pH ABG pO2 ABG HCO3 ABG O2 Saturation ABG Base Excess ABG Hemoglobin Oxyhemoglobin Sodium 134 L Potassium Chloride 96.7 L Carbon Dioxide BUN 23 H Creatinine 0.5 L Glucose 131 H POC Glucose 131 H Lactic Acid Calcium 8.1 L Phosphorus Magnesium AST ALT Alkaline Phosphatase Lactate Dehydrogenase Troponin T C-Reactive Protein NT-Pro-B Natriuret Pep Total Protein Albumin LDL Cholesterol Direct Vitamin B12 Crossmatch 12/13/21 12/13/21 12/13/21 05:23 12:11 17:18 WBC RBC Hgb Hct MCV MCH MCHC RDW Plt Count Seg Neuts % (Manual) Lymphocytes % (Manual) Seg Neutrophils # Man Lymphocytes # (Manual) Monocytes # (Manual) PT INR D-Dimer ABG pH ABG pO2 ABG HCO3 ABG O2 Saturation ABG Base Excess ABG Hemoglobin Oxyhemoglobin Sodium Potassium Chloride Carbon Dioxide BUN Creatinine Glucose POC Glucose 121 H 143 H 148 H Lactic Acid Calcium Phosphorus Magnesium AST ALT Alkaline Phosphatase Lactate Dehydrogenase Troponin T C-Reactive Protein NT-Pro-B Natriuret Pep Total Protein Albumin LDL Cholesterol Direct Vitamin B12 Crossmatch 12/14/21 12/14/21 12/14/21 00:54 04:20 04:20 WBC RBC 2.39 L Hgb 6.5 L Hct 20.3 L MCV MCH 27 L MCHC RDW 20.3 H Plt Count Seg Neuts % (Manual) Lymphocytes % (Manual) Seg Neutrophils # Man Lymphocytes # (Manual) Monocytes # (Manual) PT INR D-Dimer ABG pH ABG pO2 ABG HCO3 ABG O2 Saturation ABG Base Excess ABG Hemoglobin Oxyhemoglobin Sodium 130 L Potassium Chloride 93.5 L Carbon Dioxide BUN 25 H Creatinine Glucose 123 H POC Glucose 123 H Lactic Acid Calcium 8.0 L Phosphorus Magnesium AST ALT Alkaline Phosphatase Lactate Dehydrogenase Troponin T C-Reactive Protein NT-Pro-B Natriuret Pep Total Protein Albumin LDL Cholesterol Direct Vitamin B12 Crossmatch 12/14/21 12/14/21 12/14/21 05:06 08:17 10:30 WBC RBC Hgb Hct MCV MCH MCHC RDW Plt Count Seg Neuts % (Manual) Lymphocytes % (Manual) Seg Neutrophils # Man Lymphocytes # (Manual) Monocytes # (Manual) PT INR D-Dimer ABG pH ABG pO2 ABG HCO3 ABG O2 Saturation ABG Base Excess ABG Hemoglobin Oxyhemoglobin Sodium Potassium Chloride Carbon Dioxide BUN Creatinine Glucose POC Glucose 131 H 119 H Lactic Acid Calcium Phosphorus Magnesium AST ALT Alkaline Phosphatase Lactate Dehydrogenase Troponin T C-Reactive Protein NT-Pro-B Natriuret Pep Total Protein Albumin LDL Cholesterol Direct Vitamin B12 Crossmatch See Detail 12/14/21 12/14/21 12/14/21 12:15 16:37 23:27 WBC RBC Hgb Hct MCV MCH MCHC RDW Plt Count Seg Neuts % (Manual) Lymphocytes % (Manual) Seg Neutrophils # Man Lymphocytes # (Manual) Monocytes # (Manual) PT INR D-Dimer ABG pH ABG pO2 ABG HCO3 ABG O2 Saturation ABG Base Excess ABG Hemoglobin Oxyhemoglobin Sodium Potassium Chloride Carbon Dioxide BUN Creatinine Glucose POC Glucose 147 H 141 H 130 H Lactic Acid Calcium Phosphorus Magnesium AST ALT Alkaline Phosphatase Lactate Dehydrogenase Troponin T C-Reactive Protein NT-Pro-B Natriuret Pep Total Protein Albumin LDL Cholesterol Direct Vitamin B12 Crossmatch 12/15/21 12/15/21 12/15/21 05:00 07:00 07:00 WBC 12.3 H RBC 3.27 L Hgb 8.8 L Hct 27.5 L D MCV MCH 27 L MCHC RDW 19.0 H Plt Count Seg Neuts % (Manual) Lymphocytes % (Manual) Seg Neutrophils # Man Lymphocytes # (Manual) Monocytes # (Manual) PT INR D-Dimer ABG pH ABG pO2 ABG HCO3 ABG O2 Saturation ABG Base Excess ABG Hemoglobin Oxyhemoglobin Sodium 134 L Potassium Chloride 95.7 L Carbon Dioxide BUN 28 H Creatinine Glucose 129 H POC Glucose 129 H Lactic Acid Calcium 8.2 L Phosphorus Magnesium AST ALT Alkaline Phosphatase Lactate Dehydrogenase Troponin T C-Reactive Protein NT-Pro-B Natriuret Pep Total Protein Albumin LDL Cholesterol Direct Vitamin B12 Crossmatch 12/15/21 12/15/21 12/15/21 11:18 16:00 23:39 WBC RBC Hgb Hct MCV MCH MCHC RDW Plt Count Seg Neuts % (Manual) Lymphocytes % (Manual) Seg Neutrophils # Man Lymphocytes # (Manual) Monocytes # (Manual) PT INR D-Dimer ABG pH ABG pO2 ABG HCO3 ABG O2 Saturation ABG Base Excess ABG Hemoglobin Oxyhemoglobin Sodium Potassium Chloride Carbon Dioxide BUN Creatinine Glucose POC Glucose 139 H 137 H 146 H Lactic Acid Calcium Phosphorus Magnesium AST ALT Alkaline Phosphatase Lactate Dehydrogenase Troponin T C-Reactive Protein NT-Pro-B Natriuret Pep Total Protein Albumin LDL Cholesterol Direct Vitamin B12 Crossmatch 12/16/21 12/16/21 12/16/21 05:24 10:21 10:21 WBC 15.3 H RBC 3.24 L Hgb 8.9 L Hct 27.7 L MCV MCH MCHC RDW 19.0 H Plt Count Seg Neuts % (Manual) Lymphocytes % (Manual) Seg Neutrophils # Man Lymphocytes # (Manual) Monocytes # (Manual) PT INR D-Dimer ABG pH ABG pO2 ABG HCO3 ABG O2 Saturation ABG Base Excess ABG Hemoglobin Oxyhemoglobin Sodium 131 L Potassium 3.5 L Chloride 92.7 L Carbon Dioxide BUN 36 H Creatinine Glucose 160 H POC Glucose 121 H Lactic Acid Calcium Phosphorus Magnesium 1.60 L AST ALT Alkaline Phosphatase Lactate Dehydrogenase Troponin T C-Reactive Protein NT-Pro-B Natriuret Pep Total Protein Albumin LDL Cholesterol Direct Vitamin B12 Crossmatch 12/16/21 12/16/21 12/16/21 11:21 18:28 20:52 WBC RBC Hgb Hct MCV MCH MCHC RDW Plt Count Seg Neuts % (Manual) Lymphocytes % (Manual) Seg Neutrophils # Man Lymphocytes # (Manual) Monocytes # (Manual) PT INR D-Dimer ABG pH 7.479 H ABG pO2 79.3 L ABG HCO3 27.3 H ABG O2 Saturation ABG Base Excess 3.6 H ABG Hemoglobin 9.1 L Oxyhemoglobin 94.9 L Sodium Potassium Chloride Carbon Dioxide BUN Creatinine Glucose POC Glucose 153 H 132 H Lactic Acid Calcium Phosphorus Magnesium AST ALT Alkaline Phosphatase Lactate Dehydrogenase Troponin T C-Reactive Protein NT-Pro-B Natriuret Pep Total Protein Albumin LDL Cholesterol Direct Vitamin B12 Crossmatch 12/16/21 12/17/21 12/17/21 23:30 04:25 04:25 WBC 12.3 H RBC 2.16 L Hgb 6.0 L Hct 18.1 L* D MCV MCH MCHC RDW 19.4 H Plt Count Seg Neuts % (Manual) Lymphocytes % (Manual) Seg Neutrophils # Man Lymphocytes # (Manual) Monocytes # (Manual) PT INR D-Dimer ABG pH ABG pO2 ABG HCO3 ABG O2 Saturation ABG Base Excess ABG Hemoglobin Oxyhemoglobin Sodium 132 L Potassium 3.2 L Chloride 112.0 H Carbon Dioxide BUN 32 H Creatinine Glucose 122 H POC Glucose 137 H Lactic Acid Calcium 6.8 L D Phosphorus Magnesium AST ALT Alkaline Phosphatase Lactate Dehydrogenase Troponin T C-Reactive Protein NT-Pro-B Natriuret Pep Total Protein Albumin LDL Cholesterol Direct Vitamin B12 Crossmatch 12/17/21 12/17/21 12/17/21 05:30 11:49 14:45 WBC RBC Hgb 9.7 L D Hct MCV MCH MCHC RDW Plt Count Seg Neuts % (Manual) Lymphocytes % (Manual) Seg Neutrophils # Man Lymphocytes # (Manual) Monocytes # (Manual) PT INR D-Dimer ABG pH ABG pO2 ABG HCO3 ABG O2 Saturation ABG Base Excess ABG Hemoglobin Oxyhemoglobin Sodium Potassium Chloride Carbon Dioxide BUN Creatinine Glucose POC Glucose 137 H 143 H Lactic Acid Calcium Phosphorus Magnesium AST ALT Alkaline Phosphatase Lactate Dehydrogenase Troponin T C-Reactive Protein NT-Pro-B Natriuret Pep Total Protein Albumin LDL Cholesterol Direct Vitamin B12 Crossmatch 12/17/21 12/18/21 12/18/21 17:01 05:04 05:04 WBC 13.8 H RBC 3.44 L Hgb 9.9 L Hct 28.8 L MCV MCH MCHC RDW 18.1 H Plt Count Seg Neuts % (Manual) Lymphocytes % (Manual) Seg Neutrophils # Man Lymphocytes # (Manual) Monocytes # (Manual) PT INR D-Dimer ABG pH ABG pO2 ABG HCO3 ABG O2 Saturation ABG Base Excess ABG Hemoglobin Oxyhemoglobin Sodium 132 L Potassium Chloride 97.4 L Carbon Dioxide BUN 38 H Creatinine Glucose 134 H POC Glucose 132 H Lactic Acid Calcium Phosphorus Magnesium AST ALT Alkaline Phosphatase Lactate Dehydrogenase Troponin T C-Reactive Protein NT-Pro-B Natriuret Pep Total Protein Albumin LDL Cholesterol Direct Vitamin B12 Crossmatch 12/18/21 12/18/21 12/18/21 05:28 10:57 16:27 WBC RBC Hgb Hct MCV MCH MCHC RDW Plt Count Seg Neuts % (Manual) Lymphocytes % (Manual) Seg Neutrophils # Man Lymphocytes # (Manual) Monocytes # (Manual) PT INR D-Dimer ABG pH ABG pO2 ABG HCO3 ABG O2 Saturation ABG Base Excess ABG Hemoglobin Oxyhemoglobin Sodium Potassium Chloride Carbon Dioxide BUN Creatinine Glucose POC Glucose 118 H 132 H 130 H Lactic Acid Calcium Phosphorus Magnesium AST ALT Alkaline Phosphatase Lactate Dehydrogenase Troponin T C-Reactive Protein NT-Pro-B Natriuret Pep Total Protein Albumin LDL Cholesterol Direct Vitamin B12 Crossmatch 12/19/21 12/19/21 12/19/21 00:02 04:41 04:41 WBC 16.0 H RBC 3.45 L Hgb 9.7 L Hct 29.1 L MCV MCH MCHC RDW 17.8 H Plt Count Seg Neuts % (Manual) Lymphocytes % (Manual) Seg Neutrophils # Man Lymphocytes # (Manual) Monocytes # (Manual) PT INR D-Dimer ABG pH ABG pO2 ABG HCO3 ABG O2 Saturation ABG Base Excess ABG Hemoglobin Oxyhemoglobin Sodium 133 L Potassium Chloride 97.9 L Carbon Dioxide BUN 36 H Creatinine 0.5 L Glucose 126 H POC Glucose 127 H Lactic Acid Calcium 8.3 L Phosphorus Magnesium AST ALT Alkaline Phosphatase Lactate Dehydrogenase Troponin T C-Reactive Protein NT-Pro-B Natriuret Pep Total Protein Albumin LDL Cholesterol Direct Vitamin B12 Crossmatch 12/19/21 12/19/21 12/19/21 05:26 12:20 16:43 WBC RBC Hgb Hct MCV MCH MCHC RDW Plt Count Seg Neuts % (Manual) Lymphocytes % (Manual) Seg Neutrophils # Man Lymphocytes # (Manual) Monocytes # (Manual) PT INR D-Dimer ABG pH ABG pO2 ABG HCO3 ABG O2 Saturation ABG Base Excess ABG Hemoglobin Oxyhemoglobin Sodium Potassium Chloride Carbon Dioxide BUN Creatinine Glucose POC Glucose 119 H 145 H 126 H Lactic Acid Calcium Phosphorus Magnesium AST ALT Alkaline Phosphatase Lactate Dehydrogenase Troponin T C-Reactive Protein NT-Pro-B Natriuret Pep Total Protein Albumin LDL Cholesterol Direct Vitamin B12 Crossmatch 12/19/21 12/20/21 12/20/21 23:30 04:54 04:54 WBC 12.3 H RBC 3.54 L Hgb 10.0 L Hct 29.5 L MCV MCH MCHC RDW 17.8 H Plt Count Seg Neuts % (Manual) 88.0 H Lymphocytes % (Manual) 6.0 L Seg Neutrophils # Man 10.8 H Lymphocytes # (Manual) 0.7 L Monocytes # (Manual) PT INR D-Dimer ABG pH ABG pO2 ABG HCO3 ABG O2 Saturation ABG Base Excess ABG Hemoglobin Oxyhemoglobin Sodium 131 L Potassium Chloride 96.2 L Carbon Dioxide BUN 36 H Creatinine 0.5 L Glucose 130 H POC Glucose 117 H Lactic Acid Calcium Phosphorus Magnesium AST ALT Alkaline Phosphatase Lactate Dehydrogenase Troponin T C-Reactive Protein NT-Pro-B Natriuret Pep Total Protein Albumin LDL Cholesterol Direct Vitamin B12 Crossmatch 12/20/21 12/20/21 12/20/21 05:20 11:51 17:30 WBC RBC Hgb Hct MCV MCH MCHC RDW Plt Count Seg Neuts % (Manual) Lymphocytes % (Manual) Seg Neutrophils # Man Lymphocytes # (Manual) Monocytes # (Manual) PT INR D-Dimer ABG pH ABG pO2 ABG HCO3 ABG O2 Saturation ABG Base Excess ABG Hemoglobin Oxyhemoglobin Sodium Potassium Chloride Carbon Dioxide BUN Creatinine Glucose POC Glucose 126 H 119 H 127 H Lactic Acid Calcium Phosphorus Magnesium AST ALT Alkaline Phosphatase Lactate Dehydrogenase Troponin T C-Reactive Protein NT-Pro-B Natriuret Pep Total Protein Albumin LDL Cholesterol Direct Vitamin B12 Crossmatch 12/21/21 12/21/21 12/21/21 00:45 04:21 04:21 WBC RBC 3.47 L Hgb 9.4 L Hct 29.2 L MCV MCH 27 L MCHC RDW 18.1 H Plt Count Seg Neuts % (Manual) Lymphocytes % (Manual) Seg Neutrophils # Man Lymphocytes # (Manual) Monocytes # (Manual) PT INR D-Dimer ABG pH ABG pO2 ABG HCO3 ABG O2 Saturation ABG Base Excess ABG Hemoglobin Oxyhemoglobin Sodium 134 L Potassium Chloride Carbon Dioxide BUN 35 H Creatinine 0.5 L Glucose 122 H POC Glucose 125 H Lactic Acid Calcium 8.2 L Phosphorus Magnesium AST ALT Alkaline Phosphatase Lactate Dehydrogenase Troponin T C-Reactive Protein NT-Pro-B Natriuret Pep Total Protein Albumin LDL Cholesterol Direct Vitamin B12 Crossmatch 12/21/21 12/21/21 12/21/21 05:38 11:29 16:16 WBC RBC Hgb Hct MCV MCH MCHC RDW Plt Count Seg Neuts % (Manual) Lymphocytes % (Manual) Seg Neutrophils # Man Lymphocytes # (Manual) Monocytes # (Manual) PT INR D-Dimer ABG pH ABG pO2 ABG HCO3 ABG O2 Saturation ABG Base Excess ABG Hemoglobin Oxyhemoglobin Sodium Potassium Chloride Carbon Dioxide BUN Creatinine Glucose POC Glucose 127 H 121 H 113 H Lactic Acid Calcium Phosphorus Magnesium AST ALT Alkaline Phosphatase Lactate Dehydrogenase Troponin T C-Reactive Protein NT-Pro-B Natriuret Pep Total Protein Albumin LDL Cholesterol Direct Vitamin B12 Crossmatch 12/22/21 12/22/21 12/23/21 04:58 04:58 06:40 WBC 11.5 H RBC 3.43 L Hgb 9.8 L Hct 28.7 L MCV MCH MCHC RDW 18.5 H 17.9 H Plt Count Seg Neuts % (Manual) Lymphocytes % (Manual) Seg Neutrophils # Man Lymphocytes # (Manual) Monocytes # (Manual) PT INR D-Dimer ABG pH ABG pO2 ABG HCO3 ABG O2 Saturation ABG Base Excess ABG Hemoglobin Oxyhemoglobin Sodium 130 L Potassium Chloride 97.8 L Carbon Dioxide BUN 31 H Creatinine 0.5 L Glucose 122 H POC Glucose Lactic Acid Calcium 7.9 L Phosphorus Magnesium AST ALT Alkaline Phosphatase Lactate Dehydrogenase Troponin T C-Reactive Protein NT-Pro-B Natriuret Pep Total Protein Albumin LDL Cholesterol Direct Vitamin B12 Crossmatch 12/23/21 06:40 WBC RBC Hgb Hct MCV MCH MCHC RDW Plt Count Seg Neuts % (Manual) Lymphocytes % (Manual) Seg Neutrophils # Man Lymphocytes # (Manual) Monocytes # (Manual) PT INR D-Dimer ABG pH ABG pO2 ABG HCO3 ABG O2 Saturation ABG Base Excess ABG Hemoglobin Oxyhemoglobin Sodium 136 L Potassium Chloride Carbon Dioxide BUN 27 H Creatinine 0.4 L Glucose 107 H POC Glucose Lactic Acid Calcium 8.1 L Phosphorus Magnesium AST ALT Alkaline Phosphatase Lactate Dehydrogenase Troponin T C-Reactive Protein NT-Pro-B Natriuret Pep Total Protein Albumin LDL Cholesterol Direct Vitamin B12 Crossmatch Chest x-ray: pending Allied health notes reviewed: nursing
[2021-12-23] MEDS: POLYETHYLENE GLYCOL 3350 17 GM POWDER PO SCH (10:53)
[2021-12-23] MEDS ORDERED: SODIUM CHLORIDE 0.9% 500 ML 500 ML IV SCH (11:00)
[2021-12-23] MEDS: ALPRAZolam 0.25 MG TAB PO PRN (13:13)
--- NOTE | 2021-12-23 13:13 | Progress Note ---
Assessment and Plan Cultures: SARS CoV2 PCR: negative 11/03/2021 blood culture: Group B streptococcus 11/04/2021 blood culture: no growth 11/11/2021 blood culture: No growth 12/16/2021 tracheal aspirate culture no growth so far 12/16/2021 blood culture no growth so far A/P: 81-year-old female with diabetes mellitus, hypertension, arthritis was admitted with shortness of breath. She was also having fever: #Acute fevers: Likely secondary to MRSA bacteremia and pneumonia #MRSA bacteremia: Likely secondary to pneumonia #Acute hypoxic respiratory failure: Secondary to above. Tracheostomy, on the vent. #Acute DVT: unable to anticoagulate Recs: -Continue vancomycin goal trough 10-20. Plan for 4 weeks -Follow up repeat blood cultures -She does have a pacer in place, and given her critical illness would doubt she would be a candidate for removal if vegetation found. As such would recommend 6 weeks IV antibiotics followed by PO suppression. Will follow. Mahogany Montes MD [facility] ([facility] O: [phone] F: [phone] Subjective Date of service: 12/23/21 Principal diagnosis: Septic shock; AHRF; Anemia; Pneumonia; pleural effusion; HFrEF; Pulm HTN Interval history: Afebrile, white count slightly elevated today at 11.5. Repeat blood cultures remain negative. Objective - Exam Narrative Exam: Physical exam deferred to reduce risk of transmission of COVID-19. Please refer to primary team's note. - Constitutional Vitals: Vital Signs Temp Pulse Resp BP Pulse Ox 97.4 F L 78 17 126/78 98 12/23/21 12:00 12/23/21 12:00 12/23/21 12:00 12/23/21 12:00 12/23/21 12:00 Temperature -Last 24 Hours Temperature 97.4 F Temperature 97.4 F Temperature 97.4 F Temperature 97.6 F Temperature 97.5 F Temperature 98.1 F - Labs CBC & Chem 7: 12/23/21 06:40 12/23/21 06:40 Labs: Abnormal lab results 12/23/21 12/23/21 Range/Units 06:40 06:40 WBC 11.5 H (4.5-11.0) K/mm3 RBC 3.43 L (3.65-5.03) M/mm3 Hgb 9.8 L (10.1-14.3) gm/dl Hct 28.7 L (30.3-42.9) % RDW 17.9 H (13.2-15.2) % Sodium 136 L (137-145) mmol/L BUN 27 H (7-17) mg/dL Creatinine 0.4 L (0.6-1.2) mg/dL Glucose 107 H (65-100) mg/dL Calcium 8.1 L (8.4-10.2) mg/dL
[2021-12-23] MEDS: VANCOMYCIN/NS 1 GM/250 ML 1 GM/250 ML BAG IV SCH (14:11)
--- NOTE | 2021-12-23 17:01 | Progress Note ---
Assessment and Plan Assessment and plan: This is a 81-year-old female with known history of diabetes mellitus, hypertension, PPM, and arthritis admitted for sepsis and acute hypoxia respiratory failure 2/2 bilateral pneumonia requiring intubation and ventilatory support Assessment and Plan Neuro : Anxiety, chronic pain -Neurology consulted, appreciate recommendations -CT brain showed no acute events -EEG interpreted as abnormal record due to diffuse slowing noted throughout the recording, suggestive of encephalopathic process and/or drug effect, possibilities of postictal state cannot be totally excluded. Clinical correlation is in order -MRI brain not obtained-> patient has metal in her body -Repeat CT head with no acute findings -Reorientation as needed -Ammonia 42, B12 1823, TSH 1.5 -BuSpar, Seroquel, [place], gabapentin -xanax changed to PRN, fent patch dc 12/14 -prn xanax and Dilaudid Cardio: Acute Heart failure with reduced EF, h/o chronic heart block s/p PPM, HTN, CAD s/p PCI (2004), Moderate pulmonary HTN, cardiomyopathy -s/p vasopressor support with levophed -11/04 echocardiogram shows EF 30 to 35%, Moderate pulmonary HTN RVSP 49 -/ echo with 35-40% EF -Cardiology consulted, appreciate recommendations -Continue beta-charleen and statin therapy -Midodrine (titrate as needed) -Not on aspirin due to allergy -Blood pressure monitoring per protocol -As needed nitroglycerin Resp: Acute hypoxic respiratory failure secondary to bilateral pneumonia, bilateral pleural effusion. Right pneumothorax (resolved) -COVID-19 PCR negative -Intubated on 11/06 with 6.00 ETT at 18 at the lip and changed over bougie on 11/11-7.50 ETT at 20 at the lip -See RT notes for titration -PSV as tolerated -Surgery consult for trach -Received trach/PEG on 11/26 -S/p bedside bronchoscopy on 11/11 complicated by pneumothorax -S/p chest tube placement for right pneumothorax and dislodgment by patient on 11/15 -ABG/CXR per [facility] -VAP bundle -Right chest wall ultrasound showed pleural effusion s/p chest tube -12/11 US thoracentesis removed 1L fluid -SPO2 monitoring -Mucomyst every 8 -Albuterol every 8 GI: S/p GI bleed, duodenal ulcer, transaminitis -GI consulted, appreciate recommendations -Nutrition consult for tube feeding -BR: Senokot, MiraLAX -s/p peg 11/26 -H2 charleen -Carafate -24-hour +410 ml -10/2021 Gastric occult positive -> EGD-> duodenal ulcer -12/14 occult stool positive : Urinary retention (resolved), hyponatremia, hypochloremia -Strict intake and output -Trend BMP ID: Septic shock (POA-resolved), bilateral pneumonia, MRSA bacteremia/pna -Infectious disease consulted, appreciate recommendations -COVID-19 PCR negative -Presented with fevers, leukocytosis and hypotension -11/04 blood cultures positive with a group B strep bacteremia 12/19 however repeat blood cultures on the with no growth to date -Echo showed no evidence of vegetation -repeat echo showed EF 35-40 % with no vegetations -ABX therapy: IV vancomycin -Monitor WBC and fever curve -Bedside bronchoscopy for mucous plug on CXR 11/11 -f/u blood cultures Heme: Acute DVT in the right external iliac vein, common femoral vein, superior aspect of femoral vein, Acute microcytic anemia -Evidenced on bilateral upper lower extremity ultrasound -S/p 7 unit PRBC -Trend CBC -Transfuse for hemoglobin less than 7 -heparin gtt dc d/t anemia -S/p IVC filter Endo: h/o DM and hypothyroidism -Continue home Synthroid -SSI -Accu-Cheks every 6 -Avoid hypoglycemia The high probability of a clinically significant, sudden or life threatening deterioration of the [multi] system(s) required my full and direct attention, intervention and personal management. The aggregate critical care time was [60] minutes. This time is in addition to time spent performing reported procedures but includes the following: [x] Data Review and interpretation [x] Patient assessment and monitoring of vital signs [x] Documentation [x] Medication orders and management Disposition Plan: 60 Total Time Spent with Patient (Minutes): icu History Interval history: This is an 82-year-old female with DM, HTN , CHB s/p PPM, CAD s/p PCI and arthritis who presented to the emergency department on 11/04 for shortness of breath ongoing for the past 3 days, cough and according to family a fever of 102.2. Upon arrival of EMS patient was found to be tachypneic and hypoxic with SPO2 of 76% on room air which later improved to 88% on nonrebreather. Work-up in the emergency department included a CXR which showed bilateral interstitial pulmonary edema with bilateral pleural effusions and bibasilar opacities, leukocytosis and anemia with a hemoglobin of 6.1. Patient was admitted to the hospitalist service with acute anemia, acute hypoxic respiratory failure, bilateral pneumonia and COVID-19 PUI with consults to pulmonology, infectious disease and later cardiology. Patient was eventually intubated in the emergency department on 11/06. Hospital Course to date: 11/04/2021: Empiric therapy with iv levaquin/vancomycin. COVID PCR pending. Will consult ID. PCCM consulted, will follow recs. Hypotensive this AM, ordered bolus and fluids at 150 cc/hr. May require pressor support if bp does not improve. 11/05/2021: GBS on bcx +, currently on rocephin IV. Currently on bipap due to respiratory distress overnight. Worsening BL opacities on CXR. May be volume overload vs pneumonia. Unfortunately bp too low for lasix at this point. WIll continue levophed and bipap. Once able to tolerate, may do trial of albumin/las ix. Call attempt made to Niraj, no response. Will try again tomorrow to update. 11/06/2021: Decompensated overnight requiring intubation. CXR shows worsening interstitial infiltrates. Currenlty on dopamine, levophed, vasopressin. PICC line ordered. Advised RN to place gamble for I/O monitoring. Would benefit from diuresis but very volume overloaded. Prognosis guarded 11/08: Off sedation this am, remains unresponsive only grimace to pain. Hold all sedatives agents for now, patient is off pressors this am. Hypernatremia from today's lab- D5W X1bag, and low K repleted, repeat lab in the am. Severe constipation also noted from KUB, BR added. 11/09: Sudden SPO2 drop in the 60s this am. Patient was manually bagged and deep suctioned. Patient is currently stable on the vent, repeat CXR with no significant change. D/w CCM Mucomyst and brochodilator added. Patient mentation is unchanged, continue to hold off on sedative agents. Neurology consulted. 11/10: Acute DVT noted on bilateral lower extremity Doppler ultrasound therefore she was started on Lovenox treatment dose. Failed SBT. Hypernatremia and hyperchloremia noted, free water flush adjusted. 11/11: Patient noted to be febrile with increasing of the cytosis, UA/BC sent and CXR ordered. ID escalated antibiotics to cefepime. CXR demonstrated mucous plug, bedside bronchoscopy was performed and O ETT was changed over bougie from 6 cm to 7.5. Patient was noted to have a pneumothorax postprocedure and chest tube was placed. Family updated by [facility]. Free water flush increased and will add Jaswant supplementation. 11/12: Patient not noted to follow commands, hypernatremia worsen/persist, increasing free water flush, potassium and magnesium and phosphorus repleted. Hemoglobin noted to be 7.1/24.5 from 7.03/12 yesterday. We will continue to trend and monitor. Vent changes per [facility]. Repeat CXR showed no residual pneum othorax. Consider waterseal tomorrow. Given persistent leukocytosis antibiotics escalated to cefepime per ID. 11/13: Remains on cefepime and vancomycin, vent changes per [facility]. Anemia noted and given 1 unit PRBC. And beta-charleen held in setting of Levophed drip infusing. Remains on fentanyl drip. 11/14: Patient put on CPAP trial by [facility], will continue chest tube until after extubation. Will rest on assist control. CT brain was cancelled by [employer] and reordered. 11/15: Patient removed chest tube overnight. Will obtain cxr. remains on low dose levo. CTH completed with no acute findings. RT to place on CPAP. 11/16: Hypernatremia/hyperchloremia noted on the increase of day water flushes. Anemia noted and ordered PRBC. asked RT to place on cpap but not done yet 11/17: Patient remains on the vent, awake and following commands. H&H stable s/p 2units PRBCs. GI on consult, no intervention at this time. Will continue protonix gtt and serial H&H Q6hrs. Keep patient NPO for now, D5w added for hypernatremia and NPO status. Plan for IVC filter placement today by Vascular. 11/18: Patient is s/p IVC filter. H&H continue to trend down, hbg 6.1 this am, 1 unit of PRBCs ordered. Plan for possible EGD today by GI. Keep patient NPO, continue PPI drip and serial H&H Q6hrs. Electrolytes repleted, repeat lab in the am 11/19: S/p EGD- larger duodenal ulcer noted, see operative note. GI recommenda tions noted also noted. H&H stable this am. Keep patient on protonix gtt for now. Will keep patient NPO, continue IVF and serial H&H for now. Electrolytes repleted, repeat labs in the am 11/20: Very agitated and restless this am, fentanyl gtt resumed. Patient remains on protonix gtt, H&H remains stable. Will switch protonix gtt to IV BID, continue carafate and okay to resume meds at this time. Will F/u with GI to see if TF can be resumed. Gamble was reinserted overnight for retention. Electrolytes repleted, repeat in the am. Plan for possible PST today for possible extubation per CCM. 11/21: Patient is now on seroquel and patient's home buspar resumed. Patient more calm this morning, fentanyl gtt is off. H&H remains stable and patient is tolerating TF. Patient had a runs of Vtach/PVCs this am, BB added per Cardio. Continue daily PS and wean trial for possible extubation. 11/22: Back on fentanyl gtt overnight , RASS o to -1, following commands. Patient failed PST this am due to increased work of breathing and low SPO2, ABG pending. Patient is also with worsen pitting edema, lasix is still on hold. Will discuss with cardio and CCM to possibly resume lasix. 11/23: MARIA DEL CARMEN overnight. Patient failed PST again this am. Per CCM plan for possible trach and PEG, hold off on IV lasix for now. General surgery consulted and family is aware of possible Trach and PEG. 11/24: Trach/PEG pending this week, continue SBT/SAT as tolerated. No acute events reported overnight. 11/25: Patient was n.p.o. overnight and will remain n.p.o. tonight for trach/PEG tomorrow morning. She failed to support trial again. KUB obtained due to distended belly. 11/26: Patient scheduled for tracheostomy and PEG tube placement today, has been n.p.o. since midnight. No acute events reported overnight. [facility] ordered sim ethicone scheduled. 11/27: No acute events reported overnight, patient received trach/PEG yesterday. Has been on feedings since last night. Still awaiting LTAC placement. 11/28: Patient magnesium repleted, repeat a.m. labs, SBT 11/29: Patient complains of chest pain but ECG obtained which showed no acute findings, ordered troponin. Patient failed CPAP yesterday and was trialed again today. levophed was restarted but will aggressively wean 11/30: Patient failed SBT. Continue supportive care. Started gabapentin today 12/01: MARIA DEL CARMEN overnight. Continue daily PST. Case management to arrange possible placement 12/02: Report of dark stools overnight, patient is hemodynamically stable. H&H stable, patient is on PPI. Will continue to trend H&H. Continue daily PST as tolerated. Awaiting LTAC vs SNF placement. 12/03: Hypotensive overnight, requiring low dose pressors. S/p X3 days of gentle diurese. Will continue to monitor, wean off pressors as tolerated for MAP of 65. Patient Failed PST yesterday, case management to follow up with insurance for possible LTAC placement. Continue daily PST as tolerated. PT eval and treat ordered. 12/04: Increased agitation and anxiety overnight, remains on buspar and seroquel, trazadone added to promote rest. Patient is now working with PT, keep patient engage and awake during the day so she can rest at night. No BM for over 5 days, BR was adjusted. Patient did not tolerate PST again yesterday, continue daily PST as tolerated. Continue to titrate pressor for MAP above 65. Pending possible LTAC placement, case management to arrange. 12/05: Still not getting much rest overnight, will add melatonin for sleep. Continue to engage patient during the day and promote rest at night. TF was held due to concern for possible bleeding, H&H remains stable and stools normal this am. Resume TF and continue PPI and carafate. Remains on low dose levophed, titrate as tolerated. Continue daily PST. Possible LTAC placement, awaiting approval. 12/06: MARIA DEL CARMEN overnight. Patient rested overnight. Continue supportive measures. Daily PST as tolerated. Awaiting possible LTAC placement 12/07: MARIA DEL CARMEN overnight. Plan for Tpiece trial today. Continue current supportive measures. Possible LTAC placement 12/08: Patient placed on pressure support trial again today, started on Xanax, no acute events reported overnight. Awaiting insurance approval for LTAC. 12/09: Levophed discontinued, LTAC transfer denied, started on midodrine and Lasix, ultrasound chest pending, started on Xanax 0.[address] De León updated family at bedside today. Started on Dilaudid every 3 hours as needed. 12/10: Patient placed on CPAP trial this morning, no acute events reported overnight. Will order ultrasound-guided thoracentesis. 12/11: Patient had a thoracentesis today, will decrease Xanax dosage and continue midodrine and diuresing. Patient failed CPAP today. 12/12: Patient not tolerate CPAP trials today, no acute events reported overnight 12/13: No acute events overnight. continue PSV trials as tolerated. Daughter updated at bedside 12/14: Patient noted to be anemic today, ordered gastric occult. Patient seems to be oversedated therefore Xanax changed to as needed and fentanyl patch discontinued. We will continue to monitor hyponatremia. 12/15: MARIA DEL CARMEN overnight. s/p 1unit of PRBCs, H&H stable this am, no signs of any active bleeding. Continue daily PST as tolerated. Awaiting placement. 12/16: Hypertensive this am, Midodrine decreased. Continue daily PST. MARIA DEL CARMEN overnight 12/17: Patient Hgb dropped to 6 this am, no s/s of any active bleeding, VSS. Patient received 1unit of PRBC, will continue to trend H&H. Patient was pancultured and back on IV Abx due to persistent fevers yesterday. ID is also back on the case. Continue IV Abx per ID and f/u on cultures data for sensitivity. Patient also failed PST yesterday, continue daily PST as tolerated. Electrolytes repleted, repeat labs in the am. 12/18: Patient blood cultures is growing GPC 4 out 4 bottles. PICC line D/Rivas, patient is already on IV Abx-cefepine and Vanc and ID is following. Patient remains hemodynamically stable. Daily PST as tolerated adn PRN Benzo for anxiety. 12/19: MARIA DEL CARMEN overnight. Culture data noted, continue IV Abx per ID. Orders placed for repeat Bculture. Gamble D/C overnight, patient is voiding. Check bladder scan as needed for retention. Patient failed PST again today. Continue daily PST as tolerated. 12/20: Fevers improved, Cultures +MRSA, on Vanco per ID. Repeat 2D Echo to r/o endocarditis. Patient continue to fail PST, PEEP increased to 8 today. Continue pulmonary hygiene and vent wean per [facility]. Sodium tab added for hyponatremia. 12/22: Patient on pressure support trial for approximately 4 hours today, midodrine dosage increased due to hypotension. Lasix discontinued. 12/23: Started on a.m. Seroquel dose, midodrine increased to 10 mg 3 times daily, 500 mL normal saline bolus. Hospitalist Physical - Constitutional Vitals: Temp Pulse Resp BP Pulse Ox 97.9 F 78 17 93/54 98 12/23/21 16:00 12/23/21 16:00 12/23/21 16:00 12/23/21 16:12/23/21 16:00 General appearance: Present: no acute distress, other (Trach and on the vent) - EENT Eyes: Present: PERRL, EOM intact ENT: hearing intact, clear oral mucosa, dentition normal - Neck Neck: Present: normal ROM - Respiratory Respiratory effort: normal Respiratory: bilateral: CTA, diminished - Cardiovascular Rhythm: regular Heart Sounds: Present: S1 & S2. Absent: systolic murmur, diastolic murmur - Extremities Extremities: no ischemia, pulses intact, pulses symmetrical, normal temperature, normal color Peripheral Pulses: within normal limits - Abdominal General gastrointestinal: soft, non-tender, non-distended, normal bowel sounds - Integumentary Integumentary: Present: warm, dry - Psychiatric Psychiatric: cooperative - Neurologic Neurologic: CNII-XII intact, no focal deficits, moves all extremities - Allied Health Allied health notes reviewed: nursing, RT, social work HEART Score - HEART Score Troponin: Troponin T 0.045 ng/mL (0.00-0.029) H 11/29/21 20:15 Results - Labs CBC & Chem 7: 12/23/21 06:40 12/23/21 06:40 Labs: Laboratory Last Values WBC 11.5 K/mm3 (4.5-11.0) H 12/23/21 06:40 RBC 3.43 M/mm3 (3.65-5.03) L 12/23/21 06:40 Hgb 9.8 gm/dl (10.1-14.3) L 12/23/21 06:40 Hct 28.7 % (30.3-42.9) L 12/23/21 06:40 MCV 84 fl (79-97) 12/23/21 06:40 MCH 29 pg (28-32) 12/23/21 06:40 MCHC 34 % (30-34) 12/23/21 06:40 RDW 17.9 % (13.2-15.2) H 12/23/21 06:40 Plt Count 250 K/mm3 (140-440) 12/23/21 06:40 Add Manual Diff Complete 12/20/21 04:54 Total Counted 100 12/20/21 04:54 Seg Neutrophils % Aquatic Physiotherapist 11/06/21 15:50 Seg Neuts % (Manual) 88.0 % (40.0-70.0) H 12/20/21 04:54 Band Neutrophils % 0 % 12/20/21 04:54 Lymphocytes % (Manual) 6.0 % (13.4-35.0) L 12/20/21 04:54 Reactive Lymphs % (Man) 0 % 12/20/21 04:54 Monocytes % (Manual) 5.0 % (0.0-7.3) 12/20/21 04:54 Eosinophils % (Manual) 1.0 % (0.0-4.3) 12/20/21 04:54 Basophils % (Manual) 0 % (0.0-1.8) 12/20/21 04:54 Metamyelocytes % 0 % 12/20/21 04:54 Myelocytes % 0 % 12/20/21 04:54 Promyelocytes % 0 % 12/20/21 04:54 Blast Cells % 0 % 12/20/21 04:54 Nucleated RBC % Not Reportable 12/20/21 04:54 Seg Neutrophils # Man 10.8 K/mm3 (1.8-7.7) H 12/20/21 04:54 Band Neutrophils # 0.0 K/mm3 12/20/21 04:54 Lymphocytes # (Manual) 0.7 K/mm3 (1.2-5.4) L 12/20/21 04:54 Abs React Lymphs (Man) 0.0 K/mm3 12/20/21 04:54 Monocytes # (Manual) 0.6 K/mm3 (0.0-0.8) 12/20/21 04:54 Eosinophils # (Manual) 0.1 K/mm3 (0.0-0.4) 12/20/21 04:54 Basophils # (Manual) 0.0 K/mm3 (0.0-0.1) 12/20/21 04:54 Metamyelocytes # 0.0 K/mm3 12/20/21 04:54 Myelocytes # 0.0 K/mm3 12/20/21 04:54 Promyelocytes # 0.0 K/mm3 12/20/21 04:54 Blast Cells # 0.0 K/mm3 12/20/21 04:54 WBC Morphology Not Reportable 12/20/21 04:54 Hypersegmented Neuts Not Reportable 12/20/21 04:54 Hyposegmented Neuts Not Reportable 12/20/21 04:54 Hypogranular Neuts Not Reportable 12/20/21 04:54 Smudge Cells Not Reportable 12/20/21 04:54 Toxic Granulation Not Reportable 12/20/21 04:54 Toxic Vacuolation Not Reportable 12/20/21 04:54 Dohle Bodies Not Reportable 12/20/21 04:54 Pelger-Huet Anomaly Not Reportable 12/20/21 04:54 Irina Rods Not Reportable 12/20/21 04:54 Platelet Estimate Consistent w auto 12/20/21 04:54 Clumped Platelets Not Reportable 12/20/21 04:54 Plt Clumps, EDTA Not Reportable 12/20/21 04:54 Large Platelets Not Reportable 12/20/21 04:54 Giant Platelets Not Reportable 12/20/21 04:54 Platelet Satelliting Not Reportable 12/20/21 04:54 Plt Morphology Comment Not Reportable 12/20/21 04:54 RBC Morphology Not Reportable 12/20/21 04:54 Dimorphic RBCs Not Reportable 12/20/21 04:54 Polychromasia Not Reportable 12/20/21 04:54 Hypochromasia Not Reportable 12/20/21 04:54 Poikilocytosis Not Reportable 12/20/21 04:54 Anisocytosis 1+ 12/20/21 04:54 Microcytosis Not Reportable 12/20/21 04:54 Macrocytosis Not Reportable 12/20/21 04:54 Spherocytes Not Reportable 12/20/21 04:54 Pappenheimer Bodies Not Reportable 12/20/21 04:54 Sickle Cells Not Reportable 12/20/21 04:54 Target Cells Not Reportable 12/20/21 04:54 Tear Drop Cells Not Reportable 12/20/21 04:54 Ovalocytes Not Reportable 12/20/21 04:54 Helmet Cells Not Reportable 12/20/21 04:54 [place] Bodies Not Reportable 12/20/21 04:54 Simon Rings Not Reportable 12/20/21 04:54 [place] Cells Not Reportable 12/20/21 04:54 Bite Cells Not Reportable 12/20/21 04:54 Crenated Cell Not Reportable 12/20/21 04:54 Elliptocytes Not Reportable 12/20/21 04:54 Acanthocytes (Spur) Not Reportable 12/20/21 04:54 Rouleaux Not Reportable 12/20/21 04:54 Hemoglobin C Crystals Not Reportable 12/20/21 04:54 Schistocytes Not Reportable 12/20/21 04:54 Malaria parasites Not Reportable 12/20/21 04:54 Godfrey Bodies Not Reportable 12/20/21 04:54 Hem Pathologist Commnt No 12/20/21 04:54 PT 16.9 Sec. (12.2-14.9) H 11/26/21 05:00 INR 1.24 (0.87-1.13) H 11/26/21 05:00 APTT 29.2 Sec. (24.2-36.6) 11/26/21 05:00 D-Dimer 2655.00 ng/mlDDU (0-234) H 11/11/21 04:28 ABG pH 7.479 pH Units (7.350-7.450) H 12/16/21 20:52 ABG pCO2 37.5 mm Hg 12/16/21 20:52 ABG pO2 79.3 mm Hg (80.0-90.0) L 12/16/21 20:52 ABG HCO3 27.3 mmol/L (20.0-26.0) H 12/16/21 20:52 ABG O2 Saturation 97.0 % (95.0-99.0) 12/16/21 20:52 ABG O2 Content 12.3 (0.0-44) 12/16/21 20:52 ABG Base Excess 3.6 mmol/L (-2.0-3.0) H 12/16/21 20:52 ABG Hemoglobin 9.1 gm/dl (12.0-16.0) L 12/16/21 20:52 ABG Carboxyhemoglobin 1.6 % (0.0-5.0) 12/16/21 20:52 ABG Methemoglobin 0.5 % (0.0-1.5) 12/16/21 20:52 Oxyhemoglobin 94.9 % (95.0-99.0) L 12/16/21 20:52 FiO2 30 % 12/16/21 20:52 Sodium 136 mmol/L (137-145) L 12/23/21 06:40 Potassium 3.8 mmol/L (3.6-5.0) 12/23/21 06:40 Chloride 101.4 mmol/L (98-107) 12/23/21 06:40 Carbon Dioxide 26 mmol/L (22-30) 12/23/21 06:40 Anion Gap 12 mmol/L 12/23/21 06:40 BUN 27 mg/dL (7-17) H 12/23/21 06:40 Creatinine 0.4 mg/dL (0.6-1.2) L 12/23/21 06:40 Estimated GFR > 60 ml/min 12/23/21 06:40 BUN/Creatinine Ratio 68 % 12/23/21 06:40 Glucose 107 mg/dL (65-100) H 12/23/21 06:40 POC Glucose 101 mg/dL (70-105) 12/23/21 00:07 Lactic Acid 3.70 mmol/L (0.7-2.0) H* 11/03/21 22:32 Calcium 8.1 mg/dL (8.4-10.2) L 12/23/21 06:40 Phosphorus 3.40 mg/dL (2.5-4.5) 12/21/21 04:21 Magnesium 1.70 mg/dL (1.7-2.3) 12/21/21 04:21 Ferritin 52.6 ng/mL (10.0-200.0) 11/05/21 06:11 Total Bilirubin 0.50 mg/dL (0.1-1.2) 11/17/21 05:56 Direct Bilirubin < 0.2 mg/dL (0-0.2) 11/11/21 04:28 Indirect Bilirubin 0.1 mg/dL 11/11/21 04:28 AST 36 units/L (5-40) 11/17/21 05:56 ALT 47 units/L (7-56) 11/17/21 05:56 Alkaline Phosphatase 107 units/L (35-129) 11/17/21 05:56 Ammonia 42.0 umol/L (25-60) 11/10/21 14:08 Lactate Dehydrogenase 187 units/L (91-180) H 11/05/21 06:11 Troponin T 0.045 ng/mL (0.00-0.029) H 11/29/21 20:15 C-Reactive Protein 22.20 mg/dL (0.00-1.30) H 11/05/21 06:11 NT-Pro-B Natriuret Pep 7895 pg/mL (0-900) H 11/03/21 22:32 Total Protein 5.1 g/dL (6.3-8.2) L 11/17/21 05:56 Albumin 2.2 g/dL (3.9-5) L 11/17/21 05:56 Albumin/Globulin Ratio 0.8 % 11/17/21 05:56 Triglycerides 59 mg/dL (2-149) 11/29/21 20:15 Cholesterol 74 mg/dL (50-199) 11/29/21 20:15 LDL Cholesterol Direct 25 mg/dL (50-130) L 11/29/21 20:15 HDL Cholesterol 41 mg/dL (40-59) 11/29/21 20:15 Cholesterol/HDL Ratio 1.80 % 11/29/21 20:15 Vitamin B12 1823 pg/mL (211-911) H 11/10/21 14:08 TSH 1.510 mlU/mL (0.270-4.200) 11/10/21 14:08 Urine Color Yellow (Yellow) 11/11/21 09:00 Urine Turbidity Slightly-cloudy (Clear) 11/11/21 09:00 Urine pH 5.0 (5.0-7.0) 11/11/21 09:00 Ur Specific Pauline 1.009 (1.003-1.030) 11/11/21 09:00 Urine Protein <15 mg/dl mg/dL (Negative) 11/11/21 09:00 Urine Glucose (UA) Neg mg/dL (Negative) 11/11/21 09:00 Urine Ketones Neg mg/dL (Negative) 11/11/21 09:00 Urine Blood Mod (Negative) 11/11/21 09:00 Urine Nitrite Neg (Negative) 11/11/21 09:00 Urine Bilirubin Neg (Negative) 11/11/21 09:00 Urine Urobilinogen < 2.0 mg/dL (<2.0) 11/11/21 09:00 Ur Leukocyte Esterase Neg (Negative) 11/11/21 09:00 Urine WBC (Auto) < 1.0 /HPF (0.0-6.0) 11/11/21 09:00 Urine RBC (Auto) < 1.0 /HPF (0.0-6.0) 11/11/21 09:00 Vancomycin Trough 15.5 ug/mL (5.0-20.0) 12/19/21 13:48 Coronavirus (PCR) Negative (Negative) 11/10/21 08:30 Blood Type O POSITIVE 12/14/21 10:30 Antibody Screen Negative 12/14/21 10:30 Crossmatch See Detail 12/14/21 10:30 Microbiology: Microbiology 12/19/21 09:36 Peripheral/Venous Blood Culture - Preliminary NO GROWTH AFTER 4 DAYS 12/19/21 09:36 Peripheral/Venous Blood Culture - Preliminary NO GROWTH AFTER 4 DAYS Gam[place]/IV: Voiding Method Indwelling Catheter Active Medications - Current Medications Current Medications: Generic Name Dose Route Start Last Admin Trade Name Freq PRN Reason Stop Dose Admin Acetaminophen 650 mg 12/14/21 04:12 12/16/21 13:34 Acetaminophen 325 Mg/10.15 Ml Oral Liqd Unit Dose FEEDTUBE 650 mg Q6H PRN Administration Non Cardiac Pain or Temp>100.5 Hydrocodone Bitart/Acetaminophen 1 each 11/21/21 10:00 12/23/21 14:08 Hydrocodone/Acetaminophen 10-325mg Tab FEEDTUBE 1 each TID YOSSI Administration Alprazolam 0.25 mg 12/14/21 09:00 03/08/22 13:13 Alprazolam 0.25 Mg Tab PO 0.25 mg Q8H PRN Administration Agitation Lipase/Protease/Amylase 1 each 11/08/21 11:09 Lipase 10,500/Protease 25,000/Amylase 43,750 (Units) Dr Lema FEEDTUBE PRN PRN For Clogged Feeding Tube Buspirone HCl 7.5 mg 11/17/21 22:00 12/23/21 09:10 Buspirone 5 Mg Tab PO 7.5 mg BID YOSSI Administration Dextrose 0 ml 11/10/21 10:52 11/21/21 16:27 Dextrose 10% *Hypoglycemia IV 50 ml PRN PRN Administration Hypoglycemia Docusate Sodium 100 mg 12/04/21 11:00 12/23/21 09:09 Docusate Sodium 100 Mg/10 Ml Oral Liqd PO 100 mg BID YOSSI Administration Gabapentin 100 mg 12/01/21 10:00 12/23/21 09:09 Gabapentin 100 Mg Cap PO 100 mg QDAY YOSSI Administration Hydromorphone HCl 0.5 mg 12/08/21 20:06 12/20/21 03:35 Hydromorphone 1 Mg/1 Ml Inj IV 0.5 mg Q3H PRN Administration Pain, Moderate (4-6) Hydrophilic Ointment 1 applic 11/06/21 04:02 Lip Therapy Vaseline TP Q2HR PRN Dry Lips Vancomycin HCl 1 gm in 250 mls @ 166.667 mls/hr 12/16/21 14:00 12/23/21 14:11 Vancomycin/Ns 1 Gm/250 Ml IV 01/12/22 15:29 166.66 mls/hr Q24H YOSSI Administration Protocol Lansoprazole 30 mg 11/24/21 22:00 12/23/21 09:09 Lansoprazole 30 Mg Solutab FEEDTUBE 30 mg BID YOSSI Administration Levothyroxine Sodium 125 mcg 11/05/21 07:00 12/23/21 06:32 Levothyroxine 125 Mcg Tab PO 125 mcg DAILY@0600 YOSSI Administration Melatonin 5 mg 12/05/21 22:00 12/22/21 21:13 Melatonin 5 Mg Tab PO 5 mg QHS YOSSI Administration Metoprolol Tartrate 6.25 mg 12/08/21 22:52 12/23/21 09:08 Metoprolol Tartrate 25 Mg Tab PO Not Given BID YOSSI Midodrine 10 mg 12/22/21 14:00 12/23/21 14:08 Midodrine 5 Mg Tab PO 10 mg TID YOSSI Administration Multi-Ingred Cream/Lotion/Oil/Oint 1 applic 11/06/21 04:02 Mineral Oil/Petrolatum, White Ophth Oint 3.5 Gm OU Q4HR PRN Dry Eye(s) Nitroglycerin 0.4 mg 11/30/21 11:36 Nitroglycerin 0.4 Mg Tab Subl SL .Q5MIN PRN Chest Pain Ondansetron HCl 4 mg 12/05/21 10:00 12/22/21 23:43 Ondansetron 4 Mg/2 Ml Inj IV 4 mg Q8H PRN Administration Nausea And Vomiting Polyethylene Glycol 17 gm 12/02/21 10:00 12/23/21 10:53 Polyethylene Glycol 3350 17 Gm Powder PO Not Given QDAY [facility] Pravastatin Sodium 20 mg 11/18/21 22:00 12/22/21 21:14 Pravastatin 20 Mg Tab PO 20 mg QHS [facility] Administration Quetiapine Fumarate 50 mg 12/01/21 22:00 12/22/21 21:14 Quetiapine 25 Mg Tab PO 50 mg QHS YOSSI Administration Simple Syrup 15 ml 11/08/21 11:09 Simple Syrup 15 Ml FEEDTUBE PRN PRN Hypoglycemia Simple Syrup 30 ml 11/08/21 11:09 Simple Syrup 15 Ml FEEDTUBE PRN PRN Hypoglycemia Sodium Bicarbonate 325 mg 11/08/21 11:09 Sodium Bicarbonate 325 Mg Tab FEEDTUBE PRN PRN For Clogged Feeding Tube Sodium Chloride 10 ml 11/04/21 10:00 12/23/21 09:11 Sodium Chloride 0.9% 10 Ml Flush Syringe IV 10 ml BID YOSSI Administration Sodium Chloride 10 ml 11/04/21 02:03 Sodium Chloride 0.9% 10 Ml Flush Syringe IV PRN PRN LINE FLUSH Sucralfate 1 gm 11/18/21 16:30 12/23/21 16:14 Sucralfate 1 Gm/10 Ml Oral Liqd PO 1 gm ACHS YOSSI Administration Trazodone HCl 50 mg 12/04/21 22:00 12/22/21 21:13 Trazodone 50 Mg Tab PO 50 mg QHS YOSSI Administration Nutrition/Malnutrition Assess - Dietary Evaluation Nutrition/Malnutrition Findings: Nutrition Notes Start: 11/04/21 17:16 Freq: Status: Active Protocol: Document 12/22/21 15:53 YOVANI (Rec: 12/22/21 16:03 YOVANI [id number]) Nutrition Notes Initial or Follow up Reassessment Current Diagnosis Diabetes,Heart Failure, Respiratory Failure Other Pertinent Diagnosis Pneu, bilat pleural effusion, bacteremia Current Diet TF - Vital AF 1.2 at 40ml/hr Labs/Tests Na 130 BUN 31 Pertinent Medications Reviewed Height 5 ft Weight 71.5 kg [place] Body Weight (kg) 45.45 BMI 30.7 Weight change and time frame Current wt obtained from bed scale Weight Status Obese Subjective/Other Information Pt remains on vent support. Pt tolerating TF at goal rate. RN reports hypotension this am; may need levophed if NS bolus does not work. Percent of energy/protein needs met: 95% energy 79% pro Burn Absent Trauma Absent Minimum of two criteria No #1 Nutrition Diagnosis Inadequate oral intake Diagnosis Progress(for reassessment Continues documentation) Is patient on ventilator? Yes Is Patient Ambulatory and/or Out of Bed No REE-([place]-confined to bed) 1316.916 Kcal/Kg value to use for calculation 17 Approximate Energy Requirements Using 1216 kcal/Kg Calculation Used for Recommendations Kcal/kg Additional Notes Pro needs 2g/kg IBW: 91g/day Fluid needs 1ml/kcal Nutrition Intervention Nutrition Support: Increase TF goal rate to Vital AF 1.2 at 45ml/hr with 70ml water flush q4h. Kcal 1,296 Protein (gm) 81 Carbohydrates (gm) 119 Fat (gm) 58 Fluid (mL) 876 Fiber (gm) 6 Goal #1 TF tolerance Goal #2 TF to meet at least 75% energy and pro needs Follow-Up By: 12/26/21 Additional Comments F/U: TF rate increase, vent status
[2021-12-23] MEDS: MELATONIN 5 MG TAB PO SCH (21:33)
[2021-12-23] MEDS: QUEtiapine 25 MG TAB PO SCH (21:33)
[2021-12-23] MEDS: traZODone 50 MG TAB PO SCH (21:33)
[2021-12-23] MEDS: PRAVASTATIN 20 MG TAB PO SCH (21:35)
[2021-12-24 05:06] LABS: Hematocrit 31.8 % (30.3-42.9); Hemoglobin 9.8 gm/dl (10.1-14.3); Mean Corpuscular HGB Conc 31 % (30-34); Mean Corpuscular Volume 85 fl (79-97); Platelet Count 259 K/mm3 (140-440); Red Blood Count 3.75 M/mm3 (3.65-5.03); Red Cell Distribution Width 18.1 % (13.2-15.2)
[2021-12-24 05:16] LABS: Blood Urea Nitrogen 27 mg/dL (7-17); Calcium 8.4 mg/dL (8.4-10.2); Hemolysis Index 20
[2021-12-24 05:23] LABS: BUN/Creatinine Ratio 90
[2021-12-24] MEDS: SUCRALFATE 1 GM/10 ML ORAL LIQD PO SCH ×4 (08:20→21:01)
[2021-12-24] MEDS: HYDROcodone/ACETAMINOPHEN 10-325MG TAB FEEDTUBE SCH ×3 (08:20→20:24)
[2021-12-24] MEDS: LEVOTHYROXINE 125 MCG TAB PO SCH (08:20)
[2021-12-24] MEDS: MIDODRINE 5 MG TAB PO SCH ×3 (08:20→20:24)
[2021-12-24] MEDS: POLYETHYLENE GLYCOL 3350 17 GM POWDER PO SCH (10:11)
[2021-12-24] MEDS: METOPROLOL TARTRATE 25 MG TAB PO SCH ×2 (10:12→21:01)
[2021-12-24] MEDS: LANSOPRAZOLE 30 MG SOLUTAB FEEDTUBE SCH ×2 (11:00→21:02)
[2021-12-24] MEDS: busPIRone 5 MG TAB PO SCH ×2 (11:00→21:01)
[2021-12-24] MEDS: GABAPENTIN 100 MG CAP PO SCH (11:00)
--- NOTE | 2021-12-24 12:31 | Progress Note ---
Assessment and Plan Gram positive Bacteremia Acute respiratory failure with hypoxia, now on MVS Acute microcytic anemia Bilateral pneumonia DVT Left pleural effusion Cardiomyopathy EF 30-35% Moderate pulmonary HTN RVSP 49e - get KUB re: abdominal distension +/- simethicone - increased Seroquel to 75 mg qhs and add 25 mg qam - Simethicone 160 mg po qid X 3-5 days - continue Vancomycin for MRSA (6 weeks of therapy recommended) - no new issues otherwise, continue care as below; - LTAC evaluation ongoing - continue daily SAT and SBT assessment as tolerated - prn Levophed for target MAP > 65 mmHg - continue to wean supplemental oxygen for target O2 sat's > 90% acutely - VAP bundle addressed - continue lung protective strategies - continue bronchodilators with routine trach care and pulmonary hygiene per RT - wean per pulmonary driven protocols otherwise - avoid nephrotoxins, renally dose all medications - continue accuchecks with glycemic control per SSI (While critically ill target blood glucose of 140-180 mg/dL; avoid hypoglycemia) - sedation prn for target RASS 0 to -1 - antibiotics per ID recommendations - continue to avoid benzodiazepine's, reduce the possibility of delirium - prn analgesia per CPOT score - Maintenance of sleep-wake cycle, avoid delirium - continue enteral nutritional support at goal rate as tolerated - G.I. & VTE prophylaxis - PT/OT/ROM exercises - continue mobility protocols for pressure ulcer prophylaxis - Monitor hemodynamics closely - continue other care per attending / other consultants - discharge planning ongoing concurrently COVID SPECIFIC INTERVENTIONS - COVID-19 PCR negative .... Re-evaluate in am & prn CONDITION: CRITICAL PROGNOSIS: GUARDED CODE STATUS: FULL CODE The high probability of a clinically significant, sudden or life-threatening det erioration of the [respiratory, cardiovascular & neurologic] system(s) required my full and direct attention, intervention and personal management. The aggregate critical care time was [34] minutes without overlap. Time includes spent on; [x] Data Review and interpretation [x] Patient assessment and monitoring of vital signs [x] Documentation [x] Medication orders and management Subjective Date of service: 12/24/21 Principal diagnosis: Septic shock; AHRF; Anemia; Pneumonia; pleural effusion; HFrEF; Pulm HTN Interval history: Patient is seen today for: Septic shock; Acute hypoxemic respiratory failure; Anemia; Bilateral pneumonia; Left pleural effusion; HFrEF 30-35%; Pulm HTN RVSP 49 Seen and examined at bedside; 24hour events reviewed; nursing and respiratory care staff consulted; no adverse overnight events reported to me; resting in bed; remains a difficult wean; did not tolerate SBT's today; remains anxious Objective Vital Signs - 12hr 12/24/21 12/24/21 12/24/21 00:30 01:00 01:30 Temperature Pulse Rate 64 69 60 Respiratory 15 11 L 11 L Rate Blood Pressure 71/41 71/41 79/42 O2 Sat by Pulse 98 99 99 Oximetry O2 Sat by Pulse Oximetry [ Assessment] 12/24/21 12/24/21 12/24/21 02:00 02:30 03:00 Temperature Pulse Rate 64 60 76 Respiratory 19 14 Rate Blood Pressure 71/41 79/42 79/42 O2 Sat by Pulse 100 100 Oximetry O2 Sat by Pulse Oximetry [ Assessment] 12/24/21 12/24/21 12/24/21 03:15 03:30 04:00 Temperature 97.7 F Pulse Rate 72 73 72 Respiratory 15 15 Rate Blood Pressure 71/51 68/47 O2 Sat by Pulse 98 98 70 L Oximetry O2 Sat by Pulse Oximetry [ Assessment] 12/24/21 12/24/21 12/24/21 04:30 04:45 04:52 Temperature Pulse Rate 75 75 Respiratory 19 Rate Blood Pressure 71/51 114/67 O2 Sat by Pulse 97 99 Oximetry O2 Sat by Pulse 100 Oximetry [ Assessment] 12/24/21 12/24/21 12/24/21 05:00 05:30 05:40 Temperature Pulse Rate 76 75 75 Respiratory 21 18 Rate Blood Pressure 108/64 108/64 O2 Sat by Pulse 99 99 98 Oximetry O2 Sat by Pulse Oximetry [ Assessment] 12/24/21 12/24/21 12/24/21 06:00 06:30 07:00 Temperature Pulse Rate 67 66 76 Respiratory 14 13 13 Rate Blood Pressure 95/56 95/56 96/71 O2 Sat by Pulse 100 100 99 Oximetry O2 Sat by Pulse Oximetry [ Assessment] 12/24/21 12/24/21 12/24/21 07:22 07:30 08:00 Temperature 98.3 F Pulse Rate 69 70 Respiratory 14 15 Rate Blood Pressure 96/71 104/56 O2 Sat by Pulse 100 100 Oximetry O2 Sat by Pulse Oximetry [ Assessment] 12/24/21 12/24/21 12/24/21 08:30 09:00 09:18 Temperature Pulse Rate 77 76 84 Respiratory 13 14 Rate Blood Pressure 104/56 107/60 107/60 O2 Sat by Pulse 99 99 96 Oximetry O2 Sat by Pulse Oximetry [ Assessment] 12/24/21 12/24/21 12/24/21 09:28 09:30 10:00 Temperature Pulse Rate 85 85 71 Respiratory 19 14 Rate Blood Pressure 107/60 107/60 100/53 O2 Sat by Pulse 98 99 99 Oximetry O2 Sat by Pulse 99 Oximetry [ Assessment] 12/24/21 10:12 Temperature Pulse Rate 70 Respiratory Rate Blood Pressure 101/50 O2 Sat by Pulse Oximetry O2 Sat by Pulse Oximetry [ Assessment] Constitutional: alert, appears uncomfortable, other (trach to MVS, frail elderly woman with mildly increased respiratory effort at rest) Eyes: non-icteric ENT: oropharynx moist, other (+ Midline tracheostomy with minimal secretions) Neck: supple, no lymphadenopathy, no JVD Effort: mildly labored Ascultation: Bilateral: diminished breath sounds, rhonchi Percussion: Bilateral: not dull Cardiovascular: regular rate and rhythm, other (S1,S2) Gastrointestinal: normoactive bowel sounds, soft, non-tender, non-distended (protuberant) Integumentary: normal Extremities: no cyanosis, pink and warm, pulses normal, edema (upper etremities) Neurologic: normal mental status, non-focal exam (grossly), pupils equal and rou nd, motor strength normal and Psychiatric: anxious CBC and BMP: 12/24/21 04:24 12/24/21 04:24 ABG, PT/INR, D-dimer: ABG ABG pH 7.479 pH Units (7.350-7.450) H 12/16/21 20:52 ABG pCO2 37.5 mm Hg 12/16/21 20:52 ABG pO2 79.3 mm Hg (80.0-90.0) L 12/16/21 20:52 ABG O2 Saturation 97.0 % (95.0-99.0) 12/16/21 20:52 PT/INR, D-dimer PT 16.9 Sec. (12.2-14.9) H 11/26/21 05:00 INR 1.24 (0.87-1.13) H 11/26/21 05:00 D-Dimer 2655.00 ng/mlDDU (0-234) H 11/11/21 04:28 Abnormal lab findings: Abnormal Labs 11/03/21 11/03/21 11/03/21 22:32 22:32 22:32 WBC 29.3 H RBC 2.93 L Hgb 6.1 L Hct 21.9 L MCV 75 L MCH 21 L MCHC 28 L RDW 19.7 H Plt Count Seg Neuts % (Manual) 97.0 H Lymphocytes % (Manual) 3.0 L Seg Neutrophils # Man 28.4 H Lymphocytes # (Manual) 0.9 L Monocytes # (Manual) PT 18.6 H INR 1.40 H D-Dimer ABG pH ABG pO2 ABG HCO3 ABG O2 Saturation ABG Base Excess ABG Hemoglobin Oxyhemoglobin Sodium Potassium Chloride Carbon Dioxide 20 L BUN 33 H Creatinine Glucose 119 H POC Glucose Lactic Acid Calcium 8.3 L Phosphorus Magnesium AST ALT Alkaline Phosphatase Lactate Dehydrogenase Troponin T 0.035 H C-Reactive Protein NT-Pro-B Natriuret Pep Total Protein Albumin LDL Cholesterol Direct 34 L Vitamin B12 Crossmatch 11/03/21 11/03/21 11/03/21 22:32 22:32 23:57 WBC RBC Hgb Hct MCV MCH MCHC RDW Plt Count Seg Neuts % (Manual) Lymphocytes % (Manual) Seg Neutrophils # Man Lymphocytes # (Manual) Monocytes # (Manual) PT INR D-Dimer ABG pH ABG pO2 ABG HCO3 ABG O2 Saturation ABG Base Excess ABG Hemoglobin Oxyhemoglobin Sodium Potassium Chloride Carbon Dioxide BUN Creatinine Glucose POC Glucose Lactic Acid 3.70 H* Calcium Phosphorus Magnesium AST ALT Alkaline Phosphatase 139 H Lactate Dehydrogenase Troponin T C-Reactive Protein NT-Pro-B Natriuret Pep 7895 H Total Protein Albumin 3.5 L LDL Cholesterol Direct Vitamin B12 Crossmatch See Detail 11/04/21 11/04/21 11/05/21 00:59 13:58 00:51 WBC 27.9 H RBC 3.28 L Hgb 7.3 L Hct 25.5 L MCV 78 L MCH 22 L MCHC 29 L RDW 19.1 H Plt Count Seg Neuts % (Manual) 96.0 H Lymphocytes % (Manual) 2.0 L Seg Neutrophils # Man 26.8 H Lymphocytes # (Manual) 0.6 L Monocytes # (Manual) PT INR D-Dimer ABG pH ABG pO2 ABG HCO3 ABG O2 Saturation ABG Base Excess ABG Hemoglobin Oxyhemoglobin Sodium Potassium Chloride Carbon Dioxide BUN Creatinine Glucose POC Glucose Lactic Acid Calcium Phosphorus Magnesium AST ALT Alkaline Phosphatase Lactate Dehydrogenase Troponin T 0.051 H D 0.032 H D C-Reactive Protein NT-Pro-B Natriuret Pep Total Protein Albumin LDL Cholesterol Direct Vitamin B12 Crossmatch 11/05/21 11/05/21 11/05/21 06:11 06:11 06:11 WBC 31.8 H RBC 3.57 L Hgb 8.0 L Hct 27.7 L MCV 78 L MCH 22 L MCHC 29 L RDW 19.2 H Plt Count Seg Neuts % (Manual) 91.0 H Lymphocytes % (Manual) 4.5 L Seg Neutrophils # Man 28.9 H Lymphocytes # (Manual) Monocytes # (Manual) 1.1 H PT INR D-Dimer 1494.53 H ABG pH ABG pO2 ABG HCO3 ABG O2 Saturation ABG Base Excess ABG Hemoglobin Oxyhemoglobin Sodium Potassium Chloride Carbon Dioxide 19 L BUN 42 H Creatinine Glucose 115 H POC Glucose Lactic Acid Calcium Phosphorus Magnesium AST 43 H ALT Alkaline Phosphatase Lactate Dehydrogenase 187 H Troponin T C-Reactive Protein 22.20 H NT-Pro-B Natriuret Pep Total Protein 6.0 L Albumin 3.2 L LDL Cholesterol Direct Vitamin B12 Crossmatch 11/05/21 11/05/21 11/06/21 06:11 12:15 00:30 WBC RBC Hgb Hct MCV MCH MCHC RDW Plt Count Seg Neuts % (Manual) Lymphocytes % (Manual) Seg Neutrophils # Man Lymphocytes # (Manual) Monocytes # (Manual) PT INR D-Dimer ABG pH ABG pO2 ABG HCO3 ABG O2 Saturation ABG Base Excess ABG Hemoglobin Oxyhemoglobin Sodium Potassium Chloride Carbon Dioxide BUN Creatinine Glucose POC Glucose 113 H 69 L Lactic Acid Calcium Phosphorus Magnesium AST ALT Alkaline Phosphatase Lactate Dehydrogenase Troponin T 0.033 H C-Reactive Protein NT-Pro-B Natriuret Pep Total Protein Albumin LDL Cholesterol Direct Vitamin B12 Crossmatch 11/06/21 11/06/21 11/06/21 05:50 15:50 15:50 WBC 25.5 H RBC 3.62 L Hgb 8.0 L Hct 27.5 L MCV 76 L MCH 22 L MCHC 29 L RDW 19.6 H Plt Count Seg Neuts % (Manual) 92.0 H Lymphocytes % (Manual) 5.0 L Seg Neutrophils # Man 23.5 H Lymphocytes # (Manual) Monocytes # (Manual) PT INR D-Dimer ABG pH 7.305 L ABG pO2 ABG HCO3 15.8 L ABG O2 Saturation ABG Base Excess -9.6 L ABG Hemoglobin 8.6 L Oxyhemoglobin 94.6 L Sodium Potassium Chloride 113.9 H Carbon Dioxide 17 L BUN 56 H Creatinine Glucose 114 H POC Glucose Lactic Acid Calcium 7.9 L Phosphorus Magnesium AST 1410 H ALT 934 H Alkaline Phosphatase 142 H Lactate Dehydrogenase Troponin T C-Reactive Protein NT-Pro-B Natriuret Pep Total Protein 5.0 L Albumin 2.6 L LDL Cholesterol Direct Vitamin B12 Crossmatch 11/07/21 11/07/21 11/07/21 03:30 04:50 08:07 WBC RBC Hgb Hct MCV MCH MCHC RDW Plt Count Seg Neuts % (Manual) Lymphocytes % (Manual) Seg Neutrophils # Man Lymphocytes # (Manual) Monocytes # (Manual) PT INR D-Dimer ABG pH ABG pO2 296.9 H ABG HCO3 18.1 L ABG O2 Saturation 99.5 H ABG Base Excess -5.9 L ABG Hemoglobin 7.6 L Oxyhemoglobin Sodium Potassium Chloride Carbon Dioxide BUN Creatinine Glucose POC Glucose 106 H 108 H Lactic Acid Calcium Phosphorus Magnesium AST ALT Alkaline Phosphatase Lactate Dehydrogenase Troponin T C-Reactive Protein NT-Pro-B Natriuret Pep Total Protein Albumin LDL Cholesterol Direct Vitamin B12 Crossmatch 11/08/21 11/08/21 11/08/21 03:10 18:05 23:43 WBC RBC Hgb Hct MCV MCH MCHC RDW Plt Count Seg Neuts % (Manual) Lymphocytes % (Manual) Seg Neutrophils # Man Lymphocytes # (Manual) Monocytes # (Manual) PT INR D-Dimer ABG pH ABG pO2 127.4 H ABG HCO3 ABG O2 Saturation ABG Base Excess -3.4 L ABG Hemoglobin 7.4 L Oxyhemoglobin Sodium Potassium Chloride Carbon Dioxide BUN Creatinine Glucose POC Glucose 113 H 141 H Lactic Acid Calcium Phosphorus Magnesium AST ALT Alkaline Phosphatase Lactate Dehydrogenase Troponin T C-Reactive Protein NT-Pro-B Natriuret Pep Total Protein Albumin LDL Cholesterol Direct Vitamin B12 Crossmatch 11/08/21 11/08/2111/09/22 Unknown Unknown 02:00 WBC 14.5 H RBC 3.35 L Hgb 7.5 L 8.1 L Hct 25.4 L 27.6 L MCV 76 L 76 L MCH 23 L 22 L MCHC RDW 19.9 H 19.9 H Plt Count Seg Neuts % (Manual) Lymphocytes % (Manual) Seg Neutrophils # Man Lymphocytes # (Manual) Monocytes # (Manual) PT INR D-Dimer ABG pH ABG pO2 ABG HCO3 ABG O2 Saturation ABG Base Excess ABG Hemoglobin Oxyhemoglobin Sodium 154 H D Potassium 3.3 L Chloride 120.7 H Carbon Dioxide 20 L BUN 38 H Creatinine Glucose POC Glucose Lactic Acid Calcium 8.3 L Phosphorus Magnesium AST ALT Alkaline Phosphatase Lactate Dehydrogenase Troponin T C-Reactive Protein NT-Pro-B Natriuret Pep Total Protein Albumin LDL Cholesterol Direct Vitamin B12 Crossmatch 11/09/21 11/09/21 11/09/21 02:00 02:31 05:12 WBC RBC Hgb Hct MCV MCH MCHC RDW Plt Count Seg Neuts % (Manual) Lymphocytes % (Manual) Seg Neutrophils # Man Lymphocytes # (Manual) Monocytes # (Manual) PT INR D-Dimer ABG pH 7.479 H ABG pO2 121.3 H ABG HCO3 ABG O2 Saturation ABG Base Excess ABG Hemoglobin 7.3 L Oxyhemoglobin Sodium Potassium Chloride 112.5 H Carbon Dioxide BUN 33 H Creatinine Glucose 161 H POC Glucose 135 H Lactic Acid Calcium Phosphorus Magnesium AST 251 H ALT 481 H Alkaline Phosphatase Lactate Dehydrogenase Troponin T C-Reactive Protein NT-Pro-B Natriuret Pep Total Protein 5.0 L Albumin 2.8 L LDL Cholesterol Direct Vitamin B12 Crossmatch 11/09/21 11/09/21 11/09/21 11:33 16:32 23:28 WBC RBC Hgb Hct MCV MCH MCHC RDW Plt Count Seg Neuts % (Manual) Lymphocytes % (Manual) Seg Neutrophils # Man Lymphocytes # (Manual) Monocytes # (Manual) PT INR D-Dimer ABG pH ABG pO2 ABG HCO3 ABG O2 Saturation ABG Base Excess ABG Hemoglobin Oxyhemoglobin Sodium Potassium Chloride Carbon Dioxide BUN Creatinine Glucose POC Glucose 132 H 133 H 143 H Lactic Acid Calcium Phosphorus Magnesium AST ALT Alkaline Phosphatase Lactate Dehydrogenase Troponin T C-Reactive Protein NT-Pro-B Natriuret Pep Total Protein Albumin LDL Cholesterol Direct Vitamin B12 Crossmatch 11/10/21 11/10/21 11/10/21 04:00 04:00 05:35 WBC 16.0 H RBC 3.61 L Hgb 8.0 L Hct 27.1 L MCV 75 L MCH 22 L MCHC RDW 20.4 H Plt Count Seg Neuts % (Manual) Lymphocytes % (Manual) Seg Neutrophils # Man Lymphocytes # (Manual) Monocytes # (Manual) PT INR D-Dimer ABG pH ABG pO2 ABG HCO3 ABG O2 Saturation ABG Base Excess ABG Hemoglobin Oxyhemoglobin Sodium 149 H Potassium Chloride 114.1 H Carbon Dioxide BUN 31 H Creatinine Glucose 148 H POC Glucose 132 H Lactic Acid Calcium 8.2 L Phosphorus Magnesium AST ALT Alkaline Phosphatase Lactate Dehydrogenase Troponin T C-Reactive Protein NT-Pro-B Natriuret Pep Total Protein Albumin LDL Cholesterol Direct Vitamin B12 Crossmatch 11/10/21 11/10/21 11/10/21 11:31 14:08 15:35 WBC RBC Hgb Hct MCV MCH MCHC RDW Plt Count Seg Neuts % (Manual) Lymphocytes % (Manual) Seg Neutrophils # Man Lymphocytes # (Manual) Monocytes # (Manual) PT INR D-Dimer ABG pH ABG pO2 126.6 H ABG HCO3 ABG O2 Saturation ABG Base Excess ABG Hemoglobin 7.4 L Oxyhemoglobin Sodium Potassium Chloride Carbon Dioxide BUN Creatinine Glucose POC Glucose 147 H Lactic Acid Calcium Phosphorus Magnesium AST ALT Alkaline Phosphatase Lactate Dehydrogenase Troponin T C-Reactive Protein NT-Pro-B Natriuret Pep Total Protein Albumin LDL Cholesterol Direct Vitamin B12 1823 H Crossmatch 11/10/21 11/11/21 11/11/21 17:53 00:55 04:28 WBC RBC Hgb Hct MCV MCH MCHC RDW Plt Count Seg Neuts % (Manual) Lymphocytes % (Manual) Seg Neutrophils # Man Lymphocytes # (Manual) Monocytes # (Manual) PT INR D-Dimer ABG pH ABG pO2 ABG HCO3 ABG O2 Saturation ABG Base Excess ABG Hemoglobin Oxyhemoglobin Sodium 149 H Potassium Chloride 112.2 H Carbon Dioxide BUN 34 H Creatinine Glucose 148 H POC Glucose 140 H 145 H Lactic Acid Calcium 7.9 L Phosphorus Magnesium AST 53 H ALT 203 H Alkaline Phosphatase Lactate Dehydrogenase Troponin T C-Reactive Protein NT-Pro-B Natriuret Pep Total Protein 4.9 L Albumin 2.6 L LDL Cholesterol Direct Vitamin B12 Crossmatch 11/11/21 11/11/21 11/11/21 04:28 04:28 05:28 WBC 20.9 H RBC 3.47 L Hgb 7.5 L Hct 26.0 L MCV 75 L MCH 22 L MCHC 29 L RDW 21.6 H Plt Count 132 L Seg Neuts % (Manual) Lymphocytes % (Manual) Seg Neutrophils # Man Lymphocytes # (Manual) Monocytes # (Manual) PT INR D-Dimer 2655.00 H ABG pH ABG pO2 ABG HCO3 ABG O2 Saturation ABG Base Excess ABG Hemoglobin Oxyhemoglobin Sodium Potassium Chloride Carbon Dioxide BUN Creatinine Glucose POC Glucose 154 H Lactic Acid Calcium Phosphorus Magnesium AST ALT Alkaline Phosphatase Lactate Dehydrogenase Troponin T C-Reactive Protein NT-Pro-B Natriuret Pep Total Protein Albumin LDL Cholesterol Direct Vitamin B12 Crossmatch 11/11/21 11/11/21 11/12/21 12:38 18:13 00:14 WBC RBC Hgb Hct MCV MCH MCHC RDW Plt Count Seg Neuts % (Manual) Lymphocytes % (Manual) Seg Neutrophils # Man Lymphocytes # (Manual) Monocytes # (Manual) PT INR D-Dimer ABG pH ABG pO2 ABG HCO3 ABG O2 Saturation ABG Base Excess ABG Hemoglobin Oxyhemoglobin Sodium Potassium Chloride Carbon Dioxide BUN Creatinine Glucose POC Glucose 137 H 108 H 137 H Lactic Acid Calcium Phosphorus Magnesium AST ALT Alkaline Phosphatase Lactate Dehydrogenase Troponin T C-Reactive Protein NT-Pro-B Natriuret Pep Total Protein Albumin LDL Cholesterol Direct Vitamin B12 Crossmatch 11/12/21 11/12/21 11/12/21 05:40 06:24 11:12 WBC RBC Hgb Hct MCV MCH MCHC RDW Plt Count Seg Neuts % (Manual) Lymphocytes % (Manual) Seg Neutrophils # Man Lymphocytes # (Manual) Monocytes # (Manual) PT INR D-Dimer ABG pH 7.586 H ABG pO2 150.6 H ABG HCO3 27.2 H ABG O2 Saturation 99.1 H ABG Base Excess 5.2 H ABG Hemoglobin 7.5 L Oxyhemoglobin Sodium Potassium Chloride Carbon Dioxide BUN Creatinine Glucose POC Glucose 132 H 140 H Lactic Acid Calcium Phosphorus Magnesium AST ALT Alkaline Phosphatase Lactate Dehydrogenase Troponin T C-Reactive Protein NT-Pro-B Natriuret Pep Total Protein Albumin LDL Cholesterol Direct Vitamin B12 Crossmatch 11/12/21 11/12/21 11/12/21 14:50 14:50 17:13 WBC 19.8 H RBC 3.27 L Hgb 7.1 L Hct 24.5 L MCV 75 L MCH 22 L MCHC 29 L RDW 22.3 H Plt Count Seg Neuts % (Manual) Lymphocytes % (Manual) Seg Neutrophils # Man Lymphocytes # (Manual) Monocytes # (Manual) PT INR D-Dimer ABG pH ABG pO2 ABG HCO3 ABG O2 Saturation ABG Base Excess ABG Hemoglobin Oxyhemoglobin Sodium 150 H Potassium 3.3 L Chloride 112.0 H Carbon Dioxide BUN 40 H Creatinine Glucose 151 H POC Glucose 121 H Lactic Acid Calcium 7.4 L Phosphorus 1.70 L Magnesium 1.40 L AST ALT Alkaline Phosphatase Lactate Dehydrogenase Troponin T C-Reactive Protein NT-Pro-B Natriuret Pep Total Protein Albumin LDL Cholesterol Direct Vitamin B12 Crossmatch 11/12/21 11/13/21 11/13/21 23:19 05:34 06:30 WBC RBC Hgb Hct MCV MCH MCHC RDW Plt Count Seg Neuts % (Manual) Lymphocytes % (Manual) Seg Neutrophils # Man Lymphocytes # (Manual) Monocytes # (Manual) PT INR D-Dimer ABG pH ABG pO2 ABG HCO3 ABG O2 Saturation ABG Base Excess ABG Hemoglobin Oxyhemoglobin Sodium 149 H Potassium Chloride 60.0 L Carbon Dioxide BUN 40 H Creatinine Glucose 146 H POC Glucose 113 H 132 H Lactic Acid Calcium 7.3 L Phosphorus Magnesium 2.40 H AST ALT 72 H Alkaline Phosphatase Lactate Dehydrogenase Troponin T C-Reactive Protein NT-Pro-B Natriuret Pep Total Protein 5.2 L Albumin 2.2 L LDL Cholesterol Direct Vitamin B12 Crossmatch 11/13/21 11/13/21 11/13/21 06:30 08:30 11:19 WBC 21.2 H RBC 3.12 L Hgb 6.8 L Hct 23.2 L MCV 74 L MCH 22 L MCHC 29 L RDW 22.2 H Plt Count 135 L Seg Neuts % (Manual) Lymphocytes % (Manual) Seg Neutrophils # Man Lymphocytes # (Manual) Monocytes # (Manual) PT INR D-Dimer ABG pH ABG pO2 ABG HCO3 ABG O2 Saturation ABG Base Excess ABG Hemoglobin Oxyhemoglobin Sodium Potassium Chloride Carbon Dioxide BUN Creatinine Glucose POC Glucose 136 H Lactic Acid Calcium Phosphorus Magnesium AST ALT Alkaline Phosphatase Lactate Dehydrogenase Troponin T C-Reactive Protein NT-Pro-B Natriuret Pep Total Protein Albumin LDL Cholesterol Direct Vitamin B12 Crossmatch See Detail 11/13/21 11/14/21 11/14/21 18:21 00:01 04:46 WBC 20.0 H RBC 3.41 L Hgb 7.9 L Hct 26.8 L MCV MCH 23 L MCHC 29 L RDW 24.0 H Plt Count Seg Neuts % (Manual) Lymphocytes % (Manual) Seg Neutrophils # Man Lymphocytes # (Manual) Monocytes # (Manual) PT INR D-Dimer ABG pH ABG pO2 ABG HCO3 ABG O2 Saturation ABG Base Excess ABG Hemoglobin Oxyhemoglobin Sodium Potassium Chloride Carbon Dioxide BUN Creatinine Glucose POC Glucose 149 H 141 H Lactic Acid Calcium Phosphorus Magnesium AST ALT Alkaline Phosphatase Lactate Dehydrogenase Troponin T C-Reactive Protein NT-Pro-B Natriuret Pep Total Protein Albumin LDL Cholesterol Direct Vitamin B12 Crossmatch 11/14/21 11/14/21 11/14/21 04:46 05:10 11:10 WBC RBC Hgb Hct MCV MCH MCHC RDW Plt Count Seg Neuts % (Manual) Lymphocytes % (Manual) Seg Neutrophils # Man Lymphocytes # (Manual) Monocytes # (Manual) PT INR D-Dimer ABG pH ABG pO2 ABG HCO3 ABG O2 Saturation ABG Base Excess ABG Hemoglobin Oxyhemoglobin Sodium 148 H Potassium Chloride 113.1 H Carbon Dioxide BUN 43 H Creatinine Glucose 140 H POC Glucose 132 H 133 H Lactic Acid Calcium 7.5 L Phosphorus Magnesium AST ALT Alkaline Phosphatase Lactate Dehydrogenase Troponin T C-Reactive Protein NT-Pro-B Natriuret Pep Total Protein Albumin LDL Cholesterol Direct Vitamin B12 Crossmatch 11/14/21 11/14/21 11/14/21 16:14 17:48 23:23 WBC RBC Hgb Hct MCV MCH MCHC RDW Plt Count Seg Neuts % (Manual) Lymphocytes % (Manual) Seg Neutrophils # Man Lymphocytes # (Manual) Monocytes # (Manual) PT INR D-Dimer ABG pH ABG pO2 ABG HCO3 28.0 H ABG O2 Saturation ABG Base Excess 3.1 H ABG Hemoglobin 5.8 L Oxyhemoglobin 94.8 L Sodium Potassium Chloride Carbon Dioxide BUN Creatinine Glucose POC Glucose 130 H 136 H Lactic Acid Calcium Phosphorus Magnesium AST ALT Alkaline Phosphatase Lactate Dehydrogenase Troponin T C-Reactive Protein NT-Pro-B Natriuret Pep Total Protein Albumin LDL Cholesterol Direct Vitamin B12 Crossmatch 11/15/21 11/15/21 11/15/21 05:20 05:50 05:50 WBC 19.9 H RBC 3.50 L Hgb 8.2 L Hct 27.9 L MCV MCH 23 L MCHC 29 L RDW 24.9 H Plt Count Seg Neuts % (Manual) Lymphocytes % (Manual) Seg Neutrophils # Man Lymphocytes # (Manual) Monocytes # (Manual) PT INR D-Dimer ABG pH ABG pO2 ABG HCO3 ABG O2 Saturation ABG Base Excess ABG Hemoglobin Oxyhemoglobin Sodium 149 H Potassium Chloride 112.0 H Carbon Dioxide BUN 48 H Creatinine Glucose 152 H POC Glucose 137 H Lactic Acid Calcium 7.9 L Phosphorus Magnesium AST ALT Alkaline Phosphatase Lactate Dehydrogenase Troponin T C-Reactive Protein NT-Pro-B Natriuret Pep Total Protein Albumin LDL Cholesterol Direct Vitamin B12 Crossmatch 11/15/21 11/15/21 11/15/21 12:12 17:07 23:24 WBC RBC Hgb Hct MCV MCH MCHC RDW Plt Count Seg Neuts % (Manual) Lymphocytes % (Manual) Seg Neutrophils # Man Lymphocytes # (Manual) Monocytes # (Manual) PT INR D-Dimer ABG pH ABG pO2 ABG HCO3 ABG O2 Saturation ABG Base Excess ABG Hemoglobin Oxyhemoglobin Sodium Potassium Chloride Carbon Dioxide BUN Creatinine Glucose POC Glucose 114 H 135 H 123 H Lactic Acid Calcium Phosphorus Magnesium AST ALT Alkaline Phosphatase Lactate Dehydrogenase Troponin T C-Reactive Protein NT-Pro-B Natriuret Pep Total Protein Albumin LDL Cholesterol Direct Vitamin B12 Crossmatch 11/16/21 11/16/21 11/16/21 05:21 10:00 10:00 WBC 21.7 H RBC 2.57 L Hgb 6.0 L Hct 20.2 L D MCV MCH 24 L MCHC RDW 26.3 H Plt Count Seg Neuts % (Manual) Lymphocytes % (Manual) Seg Neutrophils # Man Lymphocytes # (Manual) Monocytes # (Manual) PT INR D-Dimer ABG pH ABG pO2 ABG HCO3 ABG O2 Saturation ABG Base Excess ABG Hemoglobin Oxyhemoglobin Sodium 153 H Potassium Chloride 114.9 H Carbon Dioxide BUN 74 H Creatinine Glucose 155 H POC Glucose 127 H Lactic Acid Calcium 8.1 L Phosphorus Magnesium AST ALT Alkaline Phosphatase Lactate Dehydrogenase Troponin T C-Reactive Protein NT-Pro-B Natriuret Pep Total Protein Albumin LDL Cholesterol Direct Vitamin B12 Crossmatch 11/16/21 11/16/21 11/16/21 11:34 14:00 15:25 WBC 17.2 H RBC 2.08 L Hgb 4.7 L* Hct 16.2 L* MCV 78 L MCH 23 L MCHC 29 L RDW 26.0 H Plt Count Seg Neuts % (Manual) 87.0 H Lymphocytes % (Manual) 8.0 L Seg Neutrophils # Man 15.0 H Lymphocytes # (Manual) Monocytes # (Manual) 0.9 H PT INR D-Dimer ABG pH ABG pO2 ABG HCO3 ABG O2 Saturation ABG Base Excess ABG Hemoglobin Oxyhemoglobin Sodium Potassium Chloride Carbon Dioxide BUN Creatinine Glucose POC Glucose 131 H Lactic Acid Calcium Phosphorus Magnesium AST ALT Alkaline Phosphatase Lactate Dehydrogenase Troponin T C-Reactive Protein NT-Pro-B Natriuret Pep Total Protein Albumin LDL Cholesterol Direct Vitamin B12 Crossmatch See Detail 11/16/21 11/16/21 11/16/21 15:25 17:21 22:43 WBC RBC Hgb 8.6 L D Hct 27.7 L D MCV MCH MCHC RDW Plt Count Seg Neuts % (Manual) Lymphocytes % (Manual) Seg Neutrophils # Man Lymphocytes # (Manual) Monocytes # (Manual) PT INR D-Dimer ABG pH ABG pO2 ABG HCO3 ABG O2 Saturation ABG Base Excess ABG Hemoglobin Oxyhemoglobin Sodium 148 H Potassium Chloride 113.2 H Carbon Dioxide BUN 84 H Creatinine Glucose 164 H POC Glucose 124 H Lactic Acid Calcium 7.6 L Phosphorus Magnesium AST ALT Alkaline Phosphatase Lactate Dehydrogenase Troponin T C-Reactive Protein NT-Pro-B Natriuret Pep Total Protein Albumin LDL Cholesterol Direct Vitamin B12 Crossmatch 11/16/21 11/17/21 11/17/21 23:07 05:33 05:56 WBC 25.1 H RBC 3.47 L Hgb 8.7 L Hct 28.5 L MCV MCH 25 L MCHC RDW 22.3 H Plt Count Seg Neuts % (Manual) Lymphocytes % (Manual) Seg Neutrophils # Man Lymphocytes # (Manual) Monocytes # (Manual) PT INR D-Dimer ABG pH ABG pO2 ABG HCO3 ABG O2 Saturation ABG Base Excess ABG Hemoglobin Oxyhemoglobin Sodium Potassium Chloride Carbon Dioxide BUN Creatinine Glucose POC Glucose 128 H 133 H Lactic Acid Calcium Phosphorus Magnesium AST ALT Alkaline Phosphatase Lactate Dehydrogenase Troponin T C-Reactive Protein NT-Pro-B Natriuret Pep Total Protein Albumin LDL Cholesterol Direct Vitamin B12 Crossmatch 11/17/21 11/17/21 11/17/21 05:56 11:00 11:55 WBC RBC Hgb 8.3 L Hct 26.9 L MCV MCH MCHC RDW Plt Count Seg Neuts % (Manual) Lymphocytes % (Manual) Seg Neutrophils # Man Lymphocytes # (Manual) Monocytes # (Manual) PT INR D-Dimer ABG pH ABG pO2 ABG HCO3 ABG O2 Saturation ABG Base Excess ABG Hemoglobin Oxyhemoglobin Sodium 151 H Potassium Chloride 113.6 H Carbon Dioxide BUN 85 H Creatinine Glucose 132 H POC Glucose 121 H Lactic Acid Calcium 7.8 L Phosphorus Magnesium AST ALT Alkaline Phosphatase Lactate Dehydrogenase Troponin T C-Reactive Protein NT-Pro-B Natriuret Pep Total Protein 5.1 L Albumin 2.2 L LDL Cholesterol Direct Vitamin B12 Crossmatch 11/17/21 11/17/21 11/18/21 18:04 18:55 00:26 WBC RBC Hgb 7.5 L 7.1 L Hct 24.8 L 23.6 L MCV MCH MCHC RDW Plt Count Seg Neuts % (Manual) Lymphocytes % (Manual) Seg Neutrophils # Man Lymphocytes # (Manual) Monocytes # (Manual) PT INR D-Dimer ABG pH ABG pO2 ABG HCO3 ABG O2 Saturation ABG Base Excess ABG Hemoglobin Oxyhemoglobin Sodium Potassium Chloride Carbon Dioxide BUN Creatinine Glucose POC Glucose 144 H Lactic Acid Calcium Phosphorus Magnesium AST ALT Alkaline Phosphatase Lactate Dehydrogenase Troponin T C-Reactive Protein NT-Pro-B Natriuret Pep Total Protein Albumin LDL Cholesterol Direct Vitamin B12 Crossmatch 11/18/21 11/18/21 11/18/21 00:43 05:10 05:10 WBC 12.5 H RBC 2.39 L Hgb 6.1 L Hct 20.2 L MCV MCH 25 L MCHC RDW 23.2 H Plt Count Seg Neuts % (Manual) Lymphocytes % (Manual) Seg Neutrophils # Man Lymphocytes # (Manual) Monocytes # (Manual) PT INR D-Dimer ABG pH ABG pO2 ABG HCO3 ABG O2 Saturation ABG Base Excess ABG Hemoglobin Oxyhemoglobin Sodium 131 L D Potassium 2.9 L* D Chloride 97.8 L Carbon Dioxide BUN 58 H Creatinine Glucose 665 H* POC Glucose 139 H Lactic Acid Calcium 7.0 L Phosphorus 2.20 L D Magnesium 1.50 L AST ALT Alkaline Phosphatase Lactate Dehydrogenase Troponin T C-Reactive Protein NT-Pro-B Natriuret Pep Total Protein Albumin LDL Cholesterol Direct Vitamin B12 Crossmatch 11/18/21 11/18/21 11/18/21 05:23 07:10 10:45 WBC RBC Hgb Hct MCV MCH MCHC RDW Plt Count Seg Neuts % (Manual) Lymphocytes % (Manual) Seg Neutrophils # Man Lymphocytes # (Manual) Monocytes # (Manual) PT INR D-Dimer ABG pH ABG pO2 ABG HCO3 ABG O2 Saturation ABG Base Excess ABG Hemoglobin Oxyhemoglobin Sodium 148 H D Potassium 3.1 L Chloride 111.9 H Carbon Dioxide BUN 63 H Creatinine Glucose 141 H POC Glucose 124 H Lactic Acid Calcium 8.1 L D Phosphorus Magnesium AST ALT Alkaline Phosphatase Lactate Dehydrogenase Troponin T C-Reactive Protein NT-Pro-B Natriuret Pep Total Protein Albumin LDL Cholesterol Direct Vitamin B12 Crossmatch See Detail 11/18/21 11/19/21 11/19/21 11:57 00:19 04:55 WBC RBC 3.35 L Hgb 9.0 L 8.9 L Hct 28.3 L D 28.1 L MCV MCH 27 L MCHC RDW 20.3 H Plt Count Seg Neuts % (Manual) Lymphocytes % (Manual) Seg Neutrophils # Man Lymphocytes # (Manual) Monocytes # (Manual) PT INR D-Dimer ABG pH ABG pO2 ABG HCO3 ABG O2 Saturation ABG Base Excess ABG Hemoglobin Oxyhemoglobin Sodium Potassium Chloride Carbon Dioxide BUN Creatinine Glucose POC Glucose 119 H Lactic Acid Calcium Phosphorus Magnesium AST ALT Alkaline Phosphatase Lactate Dehydrogenase Troponin T C-Reactive Protein NT-Pro-B Natriuret Pep Total Protein Albumin LDL Cholesterol Direct Vitamin B12 Crossmatch 11/19/21 11/19/21 11/20/21 04:55 05:42 00:55 WBC RBC Hgb 9.0 L Hct 28.6 L MCV MCH MCHC RDW Plt Count Seg Neuts % (Manual) Lymphocytes % (Manual) Seg Neutrophils # Man Lymphocytes # (Manual) Monocytes # (Manual) PT INR D-Dimer ABG pH ABG pO2 ABG HCO3 ABG O2 Saturation ABG Base Excess ABG Hemoglobin Oxyhemoglobin Sodium Potassium 3.5 L Chloride 108.6 H Carbon Dioxide BUN 47 H Creatinine Glucose 207 H POC Glucose 63 L Lactic Acid Calcium 7.1 L Phosphorus Magnesium AST ALT Alkaline Phosphatase Lactate Dehydrogenase Troponin T C-Reactive Protein NT-Pro-B Natriuret Pep Total Protein Albumin LDL Cholesterol Direct Vitamin B12 Crossmatch 11/20/21 11/20/21 11/20/21 05:40 05:40 Unknown WBC RBC 3.40 L Hgb 9.1 L Hct 28.8 L MCV MCH 27 L MCHC RDW 20.7 H Plt Count Seg Neuts % (Manual) Lymphocytes % (Manual) Seg Neutrophils # Man Lymphocytes # (Manual) Monocytes # (Manual) PT INR D-Dimer ABG pH ABG pO2 ABG HCO3 ABG O2 Saturation ABG Base Excess -2.7 L ABG Hemoglobin 9.5 L Oxyhemoglobin 94.3 L Sodium Potassium 3.5 L Chloride 108.9 H Carbon Dioxide BUN 37 H Creatinine Glucose 117 H POC Glucose Lactic Acid Calcium 7.5 L Phosphorus Magnesium AST ALT Alkaline Phosphatase Lactate Dehydrogenase Troponin T C-Reactive Protein NT-Pro-B Natriuret Pep Total Protein Albumin LDL Cholesterol Direct Vitamin B12 Crossmatch 11/21/21 11/21/21 11/21/21 04:30 04:30 16:00 WBC RBC 3.25 L Hgb 8.6 L Hct 28.1 L MCV MCH 26 L MCHC RDW 20.7 H Plt Count Seg Neuts % (Manual) Lymphocytes % (Manual) Seg Neutrophils # Man Lymphocytes # (Manual) Monocytes # (Manual) PT INR D-Dimer ABG pH ABG pO2 114.2 H ABG HCO3 ABG O2 Saturation ABG Base Excess ABG Hemoglobin 9.1 L Oxyhemoglobin Sodium 134 L Potassium Chloride Carbon Dioxide 20 L BUN 34 H Creatinine Glucose POC Glucose Lactic Acid Calcium 7.1 L Phosphorus Magnesium AST ALT Alkaline Phosphatase Lactate Dehydrogenase Troponin T C-Reactive Protein NT-Pro-B Natriuret Pep Total Protein Albumin LDL Cholesterol Direct Vitamin B12 Crossmatch 11/22/21 11/22/21 11/22/21 07:07 07:07 23:54 WBC RBC 3.30 L Hgb 9.0 L Hct 28.5 L MCV MCH 27 L MCHC RDW 21.0 H Plt Count Seg Neuts % (Manual) Lymphocytes % (Manual) Seg Neutrophils # Man Lymphocytes # (Manual) Monocytes # (Manual) PT INR D-Dimer ABG pH ABG pO2 ABG HCO3 ABG O2 Saturation ABG Base Excess ABG Hemoglobin Oxyhemoglobin Sodium Potassium Chloride Carbon Dioxide BUN 32 H Creatinine Glucose 106 H POC Glucose 110 H Lactic Acid Calcium 7.5 L Phosphorus Magnesium AST ALT Alkaline Phosphatase Lactate Dehydrogenase Troponin T C-Reactive Protein NT-Pro-B Natriuret Pep Total Protein Albumin LDL Cholesterol Direct Vitamin B12 Crossmatch 11/23/21 11/23/21 11/23/21 04:38 04:38 06:01 WBC RBC 3.23 L Hgb 8.8 L Hct 28.0 L MCV MCH 27 L MCHC RDW 21.3 H Plt Count Seg Neuts % (Manual) Lymphocytes % (Manual) Seg Neutrophils # Man Lymphocytes # (Manual) Monocytes # (Manual) PT INR D-Dimer ABG pH ABG pO2 ABG HCO3 ABG O2 Saturation ABG Base Excess ABG Hemoglobin Oxyhemoglobin Sodium 136 L Potassium Chloride Carbon Dioxide 20 L BUN 32 H Creatinine Glucose 109 H POC Glucose 115 H Lactic Acid Calcium 7.7 L Phosphorus Magnesium AST ALT Alkaline Phosphatase Lactate Dehydrogenase Troponin T C-Reactive Protein NT-Pro-B Natriuret Pep Total Protein Albumin LDL Cholesterol Direct Vitamin B12 Crossmatch 11/23/21 11/24/21 11/24/21 11:40 00:03 04:13 WBC RBC 3.18 L Hgb 8.5 L Hct 27.5 L MCV MCH 27 L MCHC RDW 21.6 H Plt Count Seg Neuts % (Manual) Lymphocytes % (Manual) Seg Neutrophils # Man Lymphocytes # (Manual) Monocytes # (Manual) PT INR D-Dimer ABG pH ABG pO2 ABG HCO3 ABG O2 Saturation ABG Base Excess ABG Hemoglobin Oxyhemoglobin Sodium Potassium Chloride Carbon Dioxide BUN Creatinine Glucose POC Glucose 117 H 111 H Lactic Acid Calcium Phosphorus Magnesium AST ALT Alkaline Phosphatase Lactate Dehydrogenase Troponin T C-Reactive Protein NT-Pro-B Natriuret Pep Total Protein Albumin LDL Cholesterol Direct Vitamin B12 Crossmatch 11/24/21 11/24/21 11/24/21 04:13 05:30 11:10 WBC RBC Hgb Hct MCV MCH MCHC RDW Plt Count Seg Neuts % (Manual) Lymphocytes % (Manual) Seg Neutrophils # Man Lymphocytes # (Manual) Monocytes # (Manual) PT INR D-Dimer ABG pH ABG pO2 ABG HCO3 ABG O2 Saturation ABG Base Excess ABG Hemoglobin Oxyhemoglobin Sodium Potassium Chloride Carbon Dioxide BUN 31 H Creatinine Glucose 101 H POC Glucose 115 H 107 H Lactic Acid Calcium 7.7 L Phosphorus Magnesium AST ALT Alkaline Phosphatase Lactate Dehydrogenase Troponin T C-Reactive Protein NT-Pro-B Natriuret Pep Total Protein Albumin LDL Cholesterol Direct Vitamin B12 Crossmatch 11/24/21 11/24/21 11/25/21 16:34 17:57 05:12 WBC RBC 3.11 L Hgb 8.2 L Hct 26.6 L MCV MCH 26 L MCHC RDW 21.3 H Plt Count Seg Neuts % (Manual) Lymphocytes % (Manual) Seg Neutrophils # Man Lymphocytes # (Manual) Monocytes # (Manual) PT INR D-Dimer ABG pH ABG pO2 ABG HCO3 ABG O2 Saturation ABG Base Excess ABG Hemoglobin Oxyhemoglobin Sodium Potassium Chloride Carbon Dioxide BUN Creatinine Glucose POC Glucose 115 H 110 H Lactic Acid Calcium Phosphorus Magnesium AST ALT Alkaline Phosphatase Lactate Dehydrogenase Troponin T C-Reactive Protein NT-Pro-B Natriuret Pep Total Protein Albumin LDL Cholesterol Direct Vitamin B12 Crossmatch 11/25/21 11/25/21 11/26/21 05:12 11:20 05:00 WBC RBC 3.30 L Hgb 8.8 L Hct 28.2 L MCV MCH 27 L MCHC RDW 20.7 H Plt Count Seg Neuts % (Manual) Lymphocytes % (Manual) Seg Neutrophils # Man Lymphocytes # (Manual) Monocytes # (Manual) PT INR D-Dimer ABG pH ABG pO2 ABG HCO3 ABG O2 Saturation ABG Base Excess ABG Hemoglobin Oxyhemoglobin Sodium Potassium Chloride Carbon Dioxide BUN 32 H Creatinine Glucose 118 H POC Glucose 118 H Lactic Acid Calcium 8.2 L Phosphorus Magnesium AST ALT Alkaline Phosphatase Lactate Dehydrogenase Troponin T C-Reactive Protein NT-Pro-B Natriuret Pep Total Protein Albumin LDL Cholesterol Direct Vitamin B12 Crossmatch 11/26/21 11/26/21 11/26/21 05:00 05:00 05:44 WBC RBC Hgb Hct MCV MCH MCHC RDW Plt Count Seg Neuts % (Manual) Lymphocytes % (Manual) Seg Neutrophils # Man Lymphocytes # (Manual) Monocytes # (Manual) PT 16.9 H INR 1.24 H D-Dimer ABG pH ABG pO2 ABG HCO3 ABG O2 Saturation ABG Base Excess ABG Hemoglobin Oxyhemoglobin Sodium Potassium Chloride Carbon Dioxide BUN 31 H Creatinine Glucose 104 H POC Glucose 110 H Lactic Acid Calcium 7.9 L Phosphorus Magnesium AST ALT Alkaline Phosphatase Lactate Dehydrogenase Troponin T C-Reactive Protein NT-Pro-B Natriuret Pep Total Protein Albumin LDL Cholesterol Direct Vitamin B12 Crossmatch 11/26/21 11/27/21 11/27/21 23:55 07:40 07:40 WBC RBC 3.18 L Hgb 8.5 L Hct 27.0 L MCV MCH 27 L MCHC RDW 21.2 H Plt Count Seg Neuts % (Manual) Lymphocytes % (Manual) Seg Neutrophils # Man Lymphocytes # (Manual) Monocytes # (Manual) PT INR D-Dimer ABG pH ABG pO2 ABG HCO3 ABG O2 Saturation ABG Base Excess ABG Hemoglobin Oxyhemoglobin Sodium Potassium Chloride Carbon Dioxide BUN 27 H Creatinine Glucose 112 H POC Glucose 63 L Lactic Acid Calcium 7.6 L Phosphorus Magnesium AST ALT Alkaline Phosphatase Lactate Dehydrogenase Troponin T C-Reactive Protein NT-Pro-B Natriuret Pep Total Protein Albumin LDL Cholesterol Direct Vitamin B12 Crossmatch 11/27/21 11/27/21 11/27/21 12:04 13:40 13:40 WBC RBC 3.31 L Hgb 8.7 L Hct 28.0 L MCV MCH 26 L MCHC RDW 20.7 H Plt Count Seg Neuts % (Manual) Lymphocytes % (Manual) Seg Neutrophils # Man Lymphocytes # (Manual) Monocytes # (Manual) PT INR D-Dimer ABG pH ABG pO2 ABG HCO3 ABG O2 Saturation ABG Base Excess ABG Hemoglobin Oxyhemoglobin Sodium 136 L Potassium Chloride Carbon Dioxide BUN 25 H Creatinine Glucose 127 H POC Glucose 109 H Lactic Acid Calcium 7.6 L Phosphorus Magnesium 1.40 L AST ALT Alkaline Phosphatase Lactate Dehydrogenase Troponin T C-Reactive Protein NT-Pro-B Natriuret Pep Total Protein Albumin LDL Cholesterol Direct Vitamin B12 Crossmatch 11/27/21 11/27/21 11/28/21 17:44 23:33 12:20 WBC RBC Hgb Hct MCV MCH MCHC RDW Plt Count Seg Neuts % (Manual) Lymphocytes % (Manual) Seg Neutrophils # Man Lymphocytes # (Manual) Monocytes # (Manual) PT INR D-Dimer ABG pH ABG pO2 ABG HCO3 ABG O2 Saturation ABG Base Excess ABG Hemoglobin Oxyhemoglobin Sodium Potassium Chloride Carbon Dioxide BUN Creatinine Glucose POC Glucose 107 H 108 H 114 H Lactic Acid Calcium Phosphorus Magnesium AST ALT Alkaline Phosphatase Lactate Dehydrogenase Troponin T C-Reactive Protein NT-Pro-B Natriuret Pep Total Protein Albumin LDL Cholesterol Direct Vitamin B12 Crossmatch 11/29/21 11/29/21 11/29/21 00:09 03:20 03:20 WBC RBC 3.05 L Hgb 8.2 L Hct 25.8 L MCV MCH 27 L MCHC RDW 20.9 H Plt Count Seg Neuts % (Manual) Lymphocytes % (Manual) Seg Neutrophils # Man Lymphocytes # (Manual) Monocytes # (Manual) PT INR D-Dimer ABG pH ABG pO2 ABG HCO3 ABG O2 Saturation ABG Base Excess ABG Hemoglobin Oxyhemoglobin Sodium 133 L Potassium Chloride Carbon Dioxide BUN 24 H Creatinine Glucose 137 H POC Glucose 134 H Lactic Acid Calcium 7.4 L Phosphorus Magnesium AST ALT Alkaline Phosphatase Lactate Dehydrogenase Troponin T C-Reactive Protein NT-Pro-B Natriuret Pep Total Protein Albumin LDL Cholesterol Direct Vitamin B12 Crossmatch 11/29/21 11/29/21 11/29/21 05:38 11:39 17:11 WBC RBC Hgb Hct MCV MCH MCHC RDW Plt Count Seg Neuts % (Manual) Lymphocytes % (Manual) Seg Neutrophils # Man Lymphocytes # (Manual) Monocytes # (Manual) PT INR D-Dimer ABG pH ABG pO2 ABG HCO3 ABG O2 Saturation ABG Base Excess ABG Hemoglobin Oxyhemoglobin Sodium Potassium Chloride Carbon Dioxide BUN Creatinine Glucose POC Glucose 117 H 143 H 124 H Lactic Acid Calcium Phosphorus Magnesium AST ALT Alkaline Phosphatase Lactate Dehydrogenase Troponin T C-Reactive Protein NT-Pro-B Natriuret Pep Total Protein Albumin LDL Cholesterol Direct Vitamin B12 Crossmatch 11/29/21 11/30/21 11/30/21 20:15 05:40 05:40 WBC 12.6 H RBC 3.41 L Hgb 9.1 L Hct 28.9 L MCV MCH 27 L MCHC RDW 20.4 H Plt Count Seg Neuts % (Manual) Lymphocytes % (Manual) Seg Neutrophils # Man Lymphocytes # (Manual) Monocytes # (Manual) PT INR D-Dimer ABG pH ABG pO2 ABG HCO3 ABG O2 Saturation ABG Base Excess ABG Hemoglobin Oxyhemoglobin Sodium Potassium Chloride Carbon Dioxide BUN 24 H Creatinine Glucose 131 H POC Glucose Lactic Acid Calcium 7.6 L Phosphorus Magnesium AST ALT Alkaline Phosphatase Lactate Dehydrogenase Troponin T 0.045 H C-Reactive Protein NT-Pro-B Natriuret Pep Total Protein Albumin LDL Cholesterol Direct 25 L Vitamin B12 Crossmatch 11/30/21 11/30/21 12/01/21 11:29 16:51 05:00 WBC RBC 2.97 L Hgb 8.0 L Hct 25.0 L MCV MCH 27 L MCHC RDW 20.8 H Plt Count Seg Neuts % (Manual) Lymphocytes % (Manual) Seg Neutrophils # Man Lymphocytes # (Manual) Monocytes # (Manual) PT INR D-Dimer ABG pH ABG pO2 ABG HCO3 ABG O2 Saturation ABG Base Excess ABG Hemoglobin Oxyhemoglobin Sodium Potassium Chloride Carbon Dioxide BUN Creatinine Glucose POC Glucose 123 H 114 H Lactic Acid Calcium Phosphorus Magnesium AST ALT Alkaline Phosphatase Lactate Dehydrogenase Troponin T C-Reactive Protein NT-Pro-B Natriuret Pep Total Protein Albumin LDL Cholesterol Direct Vitamin B12 Crossmatch 12/01/21 12/01/21 12/01/21 05:00 05:25 11:54 WBC RBC Hgb Hct MCV MCH MCHC RDW Plt Count Seg Neuts % (Manual) Lymphocytes % (Manual) Seg Neutrophils # Man Lymphocytes # (Manual) Monocytes # (Manual) PT INR D-Dimer ABG pH ABG pO2 ABG HCO3 ABG O2 Saturation ABG Base Excess ABG Hemoglobin Oxyhemoglobin Sodium 136 L Potassium Chloride Carbon Dioxide BUN 24 H Creatinine Glucose 117 H POC Glucose 108 H 107 H Lactic Acid Calcium 7.5 L Phosphorus Magnesium 1.60 L AST ALT Alkaline Phosphatase Lactate Dehydrogenase Troponin T C-Reactive Protein NT-Pro-B Natriuret Pep Total Protein Albumin LDL Cholesterol Direct Vitamin B12 Crossmatch 12/01/21 12/02/21 12/02/21 17:40 00:07 04:20 WBC RBC 2.92 L Hgb 7.7 L Hct 24.3 L MCV MCH 26 L MCHC RDW 20.5 H Plt Count Seg Neuts % (Manual) Lymphocytes % (Manual) Seg Neutrophils # Man Lymphocytes # (Manual) Monocytes # (Manual) PT INR D-Dimer ABG pH ABG pO2 ABG HCO3 ABG O2 Saturation ABG Base Excess ABG Hemoglobin Oxyhemoglobin Sodium Potassium Chloride Carbon Dioxide BUN Creatinine Glucose POC Glucose 123 H 110 H Lactic Acid Calcium Phosphorus Magnesium AST ALT Alkaline Phosphatase Lactate Dehydrogenase Troponin T C-Reactive Protein NT-Pro-B Natriuret Pep Total Protein Albumin LDL Cholesterol Direct Vitamin B12 Crossmatch 12/02/21 12/02/21 12/02/21 04:20 11:17 18:20 WBC RBC Hgb Hct MCV MCH MCHC RDW Plt Count Seg Neuts % (Manual) Lymphocytes % (Manual) Seg Neutrophils # Man Lymphocytes # (Manual) Monocytes # (Manual) PT INR D-Dimer ABG pH ABG pO2 ABG HCO3 ABG O2 Saturation ABG Base Excess ABG Hemoglobin Oxyhemoglobin Sodium 135 L Potassium Chloride Carbon Dioxide BUN 26 H Creatinine Glucose 121 H POC Glucose 117 H 113 H Lactic Acid Calcium 7.4 L Phosphorus Magnesium AST ALT Alkaline Phosphatase Lactate Dehydrogenase Troponin T C-Reactive Protein NT-Pro-B Natriuret Pep Total Protein Albumin LDL Cholesterol Direct Vitamin B12 Crossmatch 12/03/21 12/03/21 12/03/21 00:12 04:00 04:00 WBC RBC 2.99 L Hgb 7.8 L Hct 24.6 L MCV MCH 26 L MCHC RDW 20.2 H Plt Count Seg Neuts % (Manual) Lymphocytes % (Manual) Seg Neutrophils # Man Lymphocytes # (Manual) Monocytes # (Manual) PT INR D-Dimer ABG pH ABG pO2 ABG HCO3 ABG O2 Saturation ABG Base Excess ABG Hemoglobin Oxyhemoglobin Sodium 136 L Potassium Chloride Carbon Dioxide BUN 27 H Creatinine Glucose 133 H POC Glucose 121 H Lactic Acid Calcium 7.5 L Phosphorus Magnesium AST ALT Alkaline Phosphatase Lactate Dehydrogenase Troponin T C-Reactive Protein NT-Pro-B Natriuret Pep Total Protein Albumin LDL Cholesterol Direct Vitamin B12 Crossmatch 12/03/21 12/03/21 12/03/21 06:30 11:13 16:00 WBC RBC Hgb Hct MCV MCH MCHC RDW Plt Count Seg Neuts % (Manual) Lymphocytes % (Manual) Seg Neutrophils # Man Lymphocytes # (Manual) Monocytes # (Manual) PT INR D-Dimer ABG pH ABG pO2 ABG HCO3 ABG O2 Saturation ABG Base Excess ABG Hemoglobin Oxyhemoglobin Sodium Potassium Chloride Carbon Dioxide BUN Creatinine Glucose POC Glucose 129 H 125 H 125 H Lactic Acid Calcium Phosphorus Magnesium AST ALT Alkaline Phosphatase Lactate Dehydrogenase Troponin T C-Reactive Protein NT-Pro-B Natriuret Pep Total Protein Albumin LDL Cholesterol Direct Vitamin B12 Crossmatch 12/03/21 12/04/21 12/04/21 23:32 04:00 05:36 WBC RBC Hgb Hct MCV MCH MCHC RDW Plt Count Seg Neuts % (Manual) Lymphocytes % (Manual) Seg Neutrophils # Man Lymphocytes # (Manual) Monocytes # (Manual) PT INR D-Dimer ABG pH ABG pO2 ABG HCO3 ABG O2 Saturation ABG Base Excess ABG Hemoglobin Oxyhemoglobin Sodium Potassium 3.5 L Chloride Carbon Dioxide BUN 26 H Creatinine 0.5 L Glucose 151 H POC Glucose 133 H 142 H Lactic Acid Calcium 8.3 L Phosphorus Magnesium AST ALT Alkaline Phosphatase Lactate Dehydrogenase Troponin T C-Reactive Protein NT-Pro-B Natriuret Pep Total Protein Albumin LDL Cholesterol Direct Vitamin B12 Crossmatch 12/04/21 12/04/21 12/05/21 11:24 15:58 04:36 WBC RBC Hgb Hct MCV MCH MCHC RDW Plt Count Seg Neuts % (Manual) Lymphocytes % (Manual) Seg Neutrophils # Man Lymphocytes # (Manual) Monocytes # (Manual) PT INR D-Dimer ABG pH ABG pO2 ABG HCO3 ABG O2 Saturation ABG Base Excess ABG Hemoglobin Oxyhemoglobin Sodium Potassium Chloride Carbon Dioxide BUN 21 H Creatinine 0.5 L Glucose 119 H POC Glucose 130 H 111 H Lactic Acid Calcium 8.3 L Phosphorus Magnesium AST ALT Alkaline Phosphatase Lactate Dehydrogenase Troponin T C-Reactive Protein NT-Pro-B Natriuret Pep Total Protein Albumin LDL Cholesterol Direct Vitamin B12 Crossmatch 12/05/21 12/05/21 12/05/21 05:15 10:40 11:12 WBC RBC 2.98 L Hgb 8.1 L Hct 24.6 L MCV MCH 27 L MCHC RDW 20.8 H Plt Count Seg Neuts % (Manual) Lymphocytes % (Manual) Seg Neutrophils # Man Lymphocytes # (Manual) Monocytes # (Manual) PT INR D-Dimer ABG pH ABG pO2 ABG HCO3 ABG O2 Saturation ABG Base Excess ABG Hemoglobin Oxyhemoglobin Sodium Potassium Chloride Carbon Dioxide BUN Creatinine Glucose POC Glucose 107 H 110 H Lactic Acid Calcium Phosphorus Magnesium AST ALT Alkaline Phosphatase Lactate Dehydrogenase Troponin T C-Reactive Protein NT-Pro-B Natriuret Pep Total Protein Albumin LDL Cholesterol Direct Vitamin B12 Crossmatch 12/05/21 12/06/21 12/06/21 23:39 04:25 04:25 WBC RBC 2.95 L Hgb 7.9 L Hct 24.7 L MCV MCH 27 L MCHC RDW 20.9 H Plt Count Seg Neuts % (Manual) Lymphocytes % (Manual) Seg Neutrophils # Man Lymphocytes # (Manual) Monocytes # (Manual) PT INR D-Dimer ABG pH ABG pO2 ABG HCO3 ABG O2 Saturation ABG Base Excess ABG Hemoglobin Oxyhemoglobin Sodium Potassium Chloride Carbon Dioxide BUN 22 H Creatinine 0.5 L Glucose 136 H POC Glucose 118 H Lactic Acid Calcium 8.2 L Phosphorus Magnesium AST ALT Alkaline Phosphatase Lactate Dehydrogenase Troponin T C-Reactive Protein NT-Pro-B Natriuret Pep Total Protein Albumin LDL Cholesterol Direct Vitamin B12 Crossmatch 12/06/21 12/06/21 12/07/21 05:28 11:27 04:00 WBC RBC Hgb 7.2 L Hct 21.8 L MCV MCH MCHC RDW Plt Count Seg Neuts % (Manual) Lymphocytes % (Manual) Seg Neutrophils # Man Lymphocytes # (Manual) Monocytes # (Manual) PT INR D-Dimer ABG pH ABG pO2 ABG HCO3 ABG O2 Saturation ABG Base Excess ABG Hemoglobin Oxyhemoglobin Sodium Potassium Chloride Carbon Dioxide BUN Creatinine Glucose POC Glucose 142 H 126 H Lactic Acid Calcium Phosphorus Magnesium AST ALT Alkaline Phosphatase Lactate Dehydrogenase Troponin T C-Reactive Protein NT-Pro-B Natriuret Pep Total Protein Albumin LDL Cholesterol Direct Vitamin B12 Crossmatch 12/07/21 12/07/21 12/07/21 04:00 05:30 11:12 WBC RBC Hgb Hct MCV MCH MCHC RDW Plt Count Seg Neuts % (Manual) Lymphocytes % (Manual) Seg Neutrophils # Man Lymphocytes # (Manual) Monocytes # (Manual) PT INR D-Dimer ABG pH ABG pO2 ABG HCO3 ABG O2 Saturation ABG Base Excess ABG Hemoglobin Oxyhemoglobin Sodium Potassium Chloride Carbon Dioxide BUN 22 H Creatinine Glucose 119 H POC Glucose 121 H 124 H Lactic Acid Calcium 8.0 L Phosphorus Magnesium AST ALT Alkaline Phosphatase Lactate Dehydrogenase Troponin T C-Reactive Protein NT-Pro-B Natriuret Pep Total Protein Albumin LDL Cholesterol Direct Vitamin B12 Crossmatch 12/08/21 12/08/21 12/08/21 04:00 04:00 05:39 WBC RBC 2.81 L Hgb 7.7 L Hct 23.5 L MCV MCH MCHC RDW 21.2 H Plt Count Seg Neuts % (Manual) Lymphocytes % (Manual) Seg Neutrophils # Man Lymphocytes # (Manual) Monocytes # (Manual) PT INR D-Dimer ABG pH ABG pO2 ABG HCO3 ABG O2 Saturation ABG Base Excess ABG Hemoglobin Oxyhemoglobin Sodium 135 L Potassium Chloride Carbon Dioxide BUN 23 H Creatinine Glucose 109 H POC Glucose 112 H Lactic Acid Calcium Phosphorus Magnesium AST ALT Alkaline Phosphatase Lactate Dehydrogenase Troponin T C-Reactive Protein NT-Pro-B Natriuret Pep Total Protein Albumin LDL Cholesterol Direct Vitamin B12 Crossmatch 12/08/21 12/09/21 12/09/21 11:03 04:20 04:20 WBC RBC 2.67 L Hgb 7.6 L Hct 22.1 L MCV MCH MCHC RDW 20.8 H Plt Count Seg Neuts % (Manual) Lymphocytes % (Manual) Seg Neutrophils # Man Lymphocytes # (Manual) Monocytes # (Manual) PT INR D-Dimer ABG pH ABG pO2 ABG HCO3 ABG O2 Saturation ABG Base Excess ABG Hemoglobin Oxyhemoglobin Sodium 135 L Potassium Chloride 97.8 L Carbon Dioxide BUN 26 H Creatinine Glucose 119 H POC Glucose 108 H Lactic Acid Calcium 7.7 L Phosphorus Magnesium AST ALT Alkaline Phosphatase Lactate Dehydrogenase Troponin T C-Reactive Protein NT-Pro-B Natriuret Pep Total Protein Albumin LDL Cholesterol Direct Vitamin B12 Crossmatch 12/09/21 12/10/21 12/10/21 11:26 04:33 11:12 WBC RBC Hgb Hct MCV MCH MCHC RDW Plt Count Seg Neuts % (Manual) Lymphocytes % (Manual) Seg Neutrophils # Man Lymphocytes # (Manual) Monocytes # (Manual) PT INR D-Dimer ABG pH ABG pO2 ABG HCO3 ABG O2 Saturation ABG Base Excess ABG Hemoglobin Oxyhemoglobin Sodium 136 L Potassium Chloride Carbon Dioxide BUN 27 H Creatinine Glucose 117 H POC Glucose 110 H 117 H Lactic Acid Calcium 8.2 L Phosphorus Magnesium AST ALT Alkaline Phosphatase Lactate Dehydrogenase Troponin T C-Reactive Protein NT-Pro-B Natriuret Pep Total Protein Albumin LDL Cholesterol Direct Vitamin B12 Crossmatch 12/10/21 12/10/21 12/11/21 16:02 23:31 04:35 WBC RBC 2.57 L Hgb 7.0 L Hct 21.4 L MCV MCH 27 L MCHC RDW 21.1 H Plt Count Seg Neuts % (Manual) Lymphocytes % (Manual) Seg Neutrophils # Man Lymphocytes # (Manual) Monocytes # (Manual) PT INR D-Dimer ABG pH ABG pO2 ABG HCO3 ABG O2 Saturation ABG Base Excess ABG Hemoglobin Oxyhemoglobin Sodium Potassium Chloride Carbon Dioxide BUN Creatinine Glucose POC Glucose 137 H 111 H Lactic Acid Calcium Phosphorus Magnesium AST ALT Alkaline Phosphatase Lactate Dehydrogenase Troponin T C-Reactive Protein NT-Pro-B Natriuret Pep Total Protein Albumin LDL Cholesterol Direct Vitamin B12 Crossmatch 12/11/21 12/11/21 12/11/21 04:35 12:46 16:07 WBC RBC Hgb Hct MCV MCH MCHC RDW Plt Count Seg Neuts % (Manual) Lymphocytes % (Manual) Seg Neutrophils # Man Lymphocytes # (Manual) Monocytes # (Manual) PT INR D-Dimer ABG pH ABG pO2 ABG HCO3 ABG O2 Saturation ABG Base Excess ABG Hemoglobin Oxyhemoglobin Sodium 136 L Potassium Chloride Carbon Dioxide BUN 27 H Creatinine Glucose 112 H POC Glucose 115 H 111 H Lactic Acid Calcium 7.6 L Phosphorus Magnesium AST ALT Alkaline Phosphatase Lactate Dehydrogenase Troponin T C-Reactive Protein NT-Pro-B Natriuret Pep Total Protein Albumin LDL Cholesterol Direct Vitamin B12 Crossmatch 12/11/21 12/12/21 12/12/21 23:42 04:30 04:30 WBC RBC 2.60 L Hgb 7.1 L Hct 21.5 L MCV MCH 27 L MCHC RDW 20.3 H Plt Count Seg Neuts % (Manual) Lymphocytes % (Manual) Seg Neutrophils # Man Lymphocytes # (Manual) Monocytes # (Manual) PT INR D-Dimer ABG pH ABG pO2 ABG HCO3 ABG O2 Saturation ABG Base Excess ABG Hemoglobin Oxyhemoglobin Sodium 135 L Potassium Chloride 97.9 L Carbon Dioxide BUN 26 H Creatinine 0.5 L Glucose 138 H POC Glucose 115 H Lactic Acid Calcium 8.2 L Phosphorus Magnesium AST ALT Alkaline Phosphatase Lactate Dehydrogenase Troponin T C-Reactive Protein NT-Pro-B Natriuret Pep Total Protein Albumin LDL Cholesterol Direct Vitamin B12 Crossmatch 12/12/21 12/12/21 12/12/21 04:30 05:10 11:51 WBC RBC Hgb Hct MCV MCH MCHC RDW Plt Count Seg Neuts % (Manual) Lymphocytes % (Manual) Seg Neutrophils # Man Lymphocytes # (Manual) Monocytes # (Manual) PT INR D-Dimer ABG pH ABG pO2 ABG HCO3 ABG O2 Saturation ABG Base Excess ABG Hemoglobin Oxyhemoglobin Sodium Potassium Chloride Carbon Dioxide BUN Creatinine Glucose POC Glucose 119 H 119 H Lactic Acid Calcium Phosphorus Magnesium AST ALT Alkaline Phosphatase Lactate Dehydrogenase Troponin T C-Reactive Protein NT-Pro-B Natriuret Pep Total Protein Albumin LDL Cholesterol Direct Vitamin B12 Crossmatch See Detail 12/13/21 12/13/21 12/13/21 00:52 04:00 04:00 WBC RBC 2.73 L Hgb 7.4 L Hct 22.8 L MCV MCH 27 L MCHC RDW 20.5 H Plt Count Seg Neuts % (Manual) Lymphocytes % (Manual) Seg Neutrophils # Man Lymphocytes # (Manual) Monocytes # (Manual) PT INR D-Dimer ABG pH ABG pO2 ABG HCO3 ABG O2 Saturation ABG Base Excess ABG Hemoglobin Oxyhemoglobin Sodium 134 L Potassium Chloride 96.7 L Carbon Dioxide BUN 23 H Creatinine 0.5 L Glucose 131 H POC Glucose 131 H Lactic Acid Calcium 8.1 L Phosphorus Magnesium AST ALT Alkaline Phosphatase Lactate Dehydrogenase Troponin T C-Reactive Protein NT-Pro-B Natriuret Pep Total Protein Albumin LDL Cholesterol Direct Vitamin B12 Crossmatch 12/13/21 12/13/21 12/13/21 05:23 12:11 17:18 WBC RBC Hgb Hct MCV MCH MCHC RDW Plt Count Seg Neuts % (Manual) Lymphocytes % (Manual) Seg Neutrophils # Man Lymphocytes # (Manual) Monocytes # (Manual) PT INR D-Dimer ABG pH ABG pO2 ABG HCO3 ABG O2 Saturation ABG Base Excess ABG Hemoglobin Oxyhemoglobin Sodium Potassium Chloride Carbon Dioxide BUN Creatinine Glucose POC Glucose 121 H 143 H 148 H Lactic Acid Calcium Phosphorus Magnesium AST ALT Alkaline Phosphatase Lactate Dehydrogenase Troponin T C-Reactive Protein NT-Pro-B Natriuret Pep Total Protein Albumin LDL Cholesterol Direct Vitamin B12 Crossmatch 12/14/21 12/14/21 12/14/21 00:54 04:20 04:20 WBC RBC 2.39 L Hgb 6.5 L Hct 20.3 L MCV MCH 27 L MCHC RDW 20.3 H Plt Count Seg Neuts % (Manual) Lymphocytes % (Manual) Seg Neutrophils # Man Lymphocytes # (Manual) Monocytes # (Manual) PT INR D-Dimer ABG pH ABG pO2 ABG HCO3 ABG O2 Saturation ABG Base Excess ABG Hemoglobin Oxyhemoglobin Sodium 130 L Potassium Chloride 93.5 L Carbon Dioxide BUN 25 H Creatinine Glucose 123 H POC Glucose 123 H Lactic Acid Calcium 8.0 L Phosphorus Magnesium AST ALT Alkaline Phosphatase Lactate Dehydrogenase Troponin T C-Reactive Protein NT-Pro-B Natriuret Pep Total Protein Albumin LDL Cholesterol Direct Vitamin B12 Crossmatch 12/14/21 12/14/21 12/14/21 05:06 08:17 10:30 WBC RBC Hgb Hct MCV MCH MCHC RDW Plt Count Seg Neuts % (Manual) Lymphocytes % (Manual) Seg Neutrophils # Man Lymphocytes # (Manual) Monocytes # (Manual) PT INR D-Dimer ABG pH ABG pO2 ABG HCO3 ABG O2 Saturation ABG Base Excess ABG Hemoglobin Oxyhemoglobin Sodium Potassium Chloride Carbon Dioxide BUN Creatinine Glucose POC Glucose 131 H 119 H Lactic Acid Calcium Phosphorus Magnesium AST ALT Alkaline Phosphatase Lactate Dehydrogenase Troponin T C-Reactive Protein NT-Pro-B Natriuret Pep Total Protein Albumin LDL Cholesterol Direct Vitamin B12 Crossmatch See Detail 12/14/21 12/14/21 12/14/21 12:15 16:37 23:27 WBC RBC Hgb Hct MCV MCH MCHC RDW Plt Count Seg Neuts % (Manual) Lymphocytes % (Manual) Seg Neutrophils # Man Lymphocytes # (Manual) Monocytes # (Manual) PT INR D-Dimer ABG pH ABG pO2 ABG HCO3 ABG O2 Saturation ABG Base Excess ABG Hemoglobin Oxyhemoglobin Sodium Potassium Chloride Carbon Dioxide BUN Creatinine Glucose POC Glucose 147 H 141 H 130 H Lactic Acid Calcium Phosphorus Magnesium AST ALT Alkaline Phosphatase Lactate Dehydrogenase Troponin T C-Reactive Protein NT-Pro-B Natriuret Pep Total Protein Albumin LDL Cholesterol Direct Vitamin B12 Crossmatch 12/15/21 12/15/21 12/15/21 05:00 07:00 07:00 WBC 12.3 H RBC 3.27 L Hgb 8.8 L Hct 27.5 L D MCV MCH 27 L MCHC RDW 19.0 H Plt Count Seg Neuts % (Manual) Lymphocytes % (Manual) Seg Neutrophils # Man Lymphocytes # (Manual) Monocytes # (Manual) PT INR D-Dimer ABG pH ABG pO2 ABG HCO3 ABG O2 Saturation ABG Base Excess ABG Hemoglobin Oxyhemoglobin Sodium 134 L Potassium Chloride 95.7 L Carbon Dioxide BUN 28 H Creatinine Glucose 129 H POC Glucose 129 H Lactic Acid Calcium 8.2 L Phosphorus Magnesium AST ALT Alkaline Phosphatase Lactate Dehydrogenase Troponin T C-Reactive Protein NT-Pro-B Natriuret Pep Total Protein Albumin LDL Cholesterol Direct Vitamin B12 Crossmatch 12/15/21 12/15/21 12/15/21 11:18 16:00 23:39 WBC RBC Hgb Hct MCV MCH MCHC RDW Plt Count Seg Neuts % (Manual) Lymphocytes % (Manual) Seg Neutrophils # Man Lymphocytes # (Manual) Monocytes # (Manual) PT INR D-Dimer ABG pH ABG pO2 ABG HCO3 ABG O2 Saturation ABG Base Excess ABG Hemoglobin Oxyhemoglobin Sodium Potassium Chloride Carbon Dioxide BUN Creatinine Glucose POC Glucose 139 H 137 H 146 H Lactic Acid Calcium Phosphorus Magnesium AST ALT Alkaline Phosphatase Lactate Dehydrogenase Troponin T C-Reactive Protein NT-Pro-B Natriuret Pep Total Protein Albumin LDL Cholesterol Direct Vitamin B12 Crossmatch 12/16/21 12/16/21 12/16/21 05:24 10:21 10:21 WBC 15.3 H RBC 3.24 L Hgb 8.9 L Hct 27.7 L MCV MCH MCHC RDW 19.0 H Plt Count Seg Neuts % (Manual) Lymphocytes % (Manual) Seg Neutrophils # Man Lymphocytes # (Manual) Monocytes # (Manual) PT INR D-Dimer ABG pH ABG pO2 ABG HCO3 ABG O2 Saturation ABG Base Excess ABG Hemoglobin Oxyhemoglobin Sodium 131 L Potassium 3.5 L Chloride 92.7 L Carbon Dioxide BUN 36 H Creatinine Glucose 160 H POC Glucose 121 H Lactic Acid Calcium Phosphorus Magnesium 1.60 L AST ALT Alkaline Phosphatase Lactate Dehydrogenase Troponin T C-Reactive Protein NT-Pro-B Natriuret Pep Total Protein Albumin LDL Cholesterol Direct Vitamin B12 Crossmatch 12/16/21 12/16/21 12/16/21 11:21 18:28 20:52 WBC RBC Hgb Hct MCV MCH MCHC RDW Plt Count Seg Neuts % (Manual) Lymphocytes % (Manual) Seg Neutrophils # Man Lymphocytes # (Manual) Monocytes # (Manual) PT INR D-Dimer ABG pH 7.479 H ABG pO2 79.3 L ABG HCO3 27.3 H ABG O2 Saturation ABG Base Excess 3.6 H ABG Hemoglobin 9.1 L Oxyhemoglobin 94.9 L Sodium Potassium Chloride Carbon Dioxide BUN Creatinine Glucose POC Glucose 153 H 132 H Lactic Acid Calcium Phosphorus Magnesium AST ALT Alkaline Phosphatase Lactate Dehydrogenase Troponin T C-Reactive Protein NT-Pro-B Natriuret Pep Total Protein Albumin LDL Cholesterol Direct Vitamin B12 Crossmatch 12/16/21 12/17/21 12/17/21 23:30 04:25 04:25 WBC 12.3 H RBC 2.16 L Hgb 6.0 L Hct 18.1 L* D MCV MCH MCHC RDW 19.4 H Plt Count Seg Neuts % (Manual) Lymphocytes % (Manual) Seg Neutrophils # Man Lymphocytes # (Manual) Monocytes # (Manual) PT INR D-Dimer ABG pH ABG pO2 ABG HCO3 ABG O2 Saturation ABG Base Excess ABG Hemoglobin Oxyhemoglobin Sodium 132 L Potassium 3.2 L Chloride 112.0 H Carbon Dioxide BUN 32 H Creatinine Glucose 122 H POC Glucose 137 H Lactic Acid Calcium 6.8 L D Phosphorus Magnesium AST ALT Alkaline Phosphatase Lactate Dehydrogenase Troponin T C-Reactive Protein NT-Pro-B Natriuret Pep Total Protein Albumin LDL Cholesterol Direct Vitamin B12 Crossmatch 12/17/21 12/17/21 12/17/21 05:30 11:49 14:45 WBC RBC Hgb 9.7 L D Hct MCV MCH MCHC RDW Plt Count Seg Neuts % (Manual) Lymphocytes % (Manual) Seg Neutrophils # Man Lymphocytes # (Manual) Monocytes # (Manual) PT INR D-Dimer ABG pH ABG pO2 ABG HCO3 ABG O2 Saturation ABG Base Excess ABG Hemoglobin Oxyhemoglobin Sodium Potassium Chloride Carbon Dioxide BUN Creatinine Glucose POC Glucose 137 H 143 H Lactic Acid Calcium Phosphorus Magnesium AST ALT Alkaline Phosphatase Lactate Dehydrogenase Troponin T C-Reactive Protein NT-Pro-B Natriuret Pep Total Protein Albumin LDL Cholesterol Direct Vitamin B12 Crossmatch 12/17/21 12/18/21 12/18/21 17:01 05:04 05:04 WBC 13.8 H RBC 3.44 L Hgb 9.9 L Hct 28.8 L MCV MCH MCHC RDW 18.1 H Plt Count Seg Neuts % (Manual) Lymphocytes % (Manual) Seg Neutrophils # Man Lymphocytes # (Manual) Monocytes # (Manual) PT INR D-Dimer ABG pH ABG pO2 ABG HCO3 ABG O2 Saturation ABG Base Excess ABG Hemoglobin Oxyhemoglobin Sodium 132 L Potassium Chloride 97.4 L Carbon Dioxide BUN 38 H Creatinine Glucose 134 H POC Glucose 132 H Lactic Acid Calcium Phosphorus Magnesium AST ALT Alkaline Phosphatase Lactate Dehydrogenase Troponin T C-Reactive Protein NT-Pro-B Natriuret Pep Total Protein Albumin LDL Cholesterol Direct Vitamin B12 Crossmatch 12/18/21 12/18/21 12/18/21 05:28 10:57 16:27 WBC RBC Hgb Hct MCV MCH MCHC RDW Plt Count Seg Neuts % (Manual) Lymphocytes % (Manual) Seg Neutrophils # Man Lymphocytes # (Manual) Monocytes # (Manual) PT INR D-Dimer ABG pH ABG pO2 ABG HCO3 ABG O2 Saturation ABG Base Excess ABG Hemoglobin Oxyhemoglobin Sodium Potassium Chloride Carbon Dioxide BUN Creatinine Glucose POC Glucose 118 H 132 H 130 H Lactic Acid Calcium Phosphorus Magnesium AST ALT Alkaline Phosphatase Lactate Dehydrogenase Troponin T C-Reactive Protein NT-Pro-B Natriuret Pep Total Protein Albumin LDL Cholesterol Direct Vitamin B12 Crossmatch 12/19/21 12/19/21 12/19/21 00:02 04:41 04:41 WBC 16.0 H RBC 3.45 L Hgb 9.7 L Hct 29.1 L MCV MCH MCHC RDW 17.8 H Plt Count Seg Neuts % (Manual) Lymphocytes % (Manual) Seg Neutrophils # Man Lymphocytes # (Manual) Monocytes # (Manual) PT INR D-Dimer ABG pH ABG pO2 ABG HCO3 ABG O2 Saturation ABG Base Excess ABG Hemoglobin Oxyhemoglobin Sodium 133 L Potassium Chloride 97.9 L Carbon Dioxide BUN 36 H Creatinine 0.5 L Glucose 126 H POC Glucose 127 H Lactic Acid Calcium 8.3 L Phosphorus Magnesium AST ALT Alkaline Phosphatase Lactate Dehydrogenase Troponin T C-Reactive Protein NT-Pro-B Natriuret Pep Total Protein Albumin LDL Cholesterol Direct Vitamin B12 Crossmatch 12/19/21 12/19/21 12/19/21 05:26 12:20 16:43 WBC RBC Hgb Hct MCV MCH MCHC RDW Plt Count Seg Neuts % (Manual) Lymphocytes % (Manual) Seg Neutrophils # Man Lymphocytes # (Manual) Monocytes # (Manual) PT INR D-Dimer ABG pH ABG pO2 ABG HCO3 ABG O2 Saturation ABG Base Excess ABG Hemoglobin Oxyhemoglobin Sodium Potassium Chloride Carbon Dioxide BUN Creatinine Glucose POC Glucose 119 H 145 H 126 H Lactic Acid Calcium Phosphorus Magnesium AST ALT Alkaline Phosphatase Lactate Dehydrogenase Troponin T C-Reactive Protein NT-Pro-B Natriuret Pep Total Protein Albumin LDL Cholesterol Direct Vitamin B12 Crossmatch 12/19/21 12/20/21 12/20/21 23:30 04:54 04:54 WBC 12.3 H RBC 3.54 L Hgb 10.0 L Hct 29.5 L MCV MCH MCHC RDW 17.8 H Plt Count Seg Neuts % (Manual) 88.0 H Lymphocytes % (Manual) 6.0 L Seg Neutrophils # Man 10.8 H Lymphocytes # (Manual) 0.7 L Monocytes # (Manual) PT INR D-Dimer ABG pH ABG pO2 ABG HCO3 ABG O2 Saturation ABG Base Excess ABG Hemoglobin Oxyhemoglobin Sodium 131 L Potassium Chloride 96.2 L Carbon Dioxide BUN 36 H Creatinine 0.5 L Glucose 130 H POC Glucose 117 H Lactic Acid Calcium Phosphorus Magnesium AST ALT Alkaline Phosphatase Lactate Dehydrogenase Troponin T C-Reactive Protein NT-Pro-B Natriuret Pep Total Protein Albumin LDL Cholesterol Direct Vitamin B12 Crossmatch 12/20/21 12/20/21 12/20/21 05:20 11:51 17:30 WBC RBC Hgb Hct MCV MCH MCHC RDW Plt Count Seg Neuts % (Manual) Lymphocytes % (Manual) Seg Neutrophils # Man Lymphocytes # (Manual) Monocytes # (Manual) PT INR D-Dimer ABG pH ABG pO2 ABG HCO3 ABG O2 Saturation ABG Base Excess ABG Hemoglobin Oxyhemoglobin Sodium Potassium Chloride Carbon Dioxide BUN Creatinine Glucose POC Glucose 126 H 119 H 127 H Lactic Acid Calcium Phosphorus Magnesium AST ALT Alkaline Phosphatase Lactate Dehydrogenase Troponin T C-Reactive Protein NT-Pro-B Natriuret Pep Total Protein Albumin LDL Cholesterol Direct Vitamin B12 Crossmatch 12/21/21 12/21/21 12/21/21 00:45 04:21 04:21 WBC RBC 3.47 L Hgb 9.4 L Hct 29.2 L MCV MCH 27 L MCHC RDW 18.1 H Plt Count Seg Neuts % (Manual) Lymphocytes % (Manual) Seg Neutrophils # Man Lymphocytes # (Manual) Monocytes # (Manual) PT INR D-Dimer ABG pH ABG pO2 ABG HCO3 ABG O2 Saturation ABG Base Excess ABG Hemoglobin Oxyhemoglobin Sodium 134 L Potassium Chloride Carbon Dioxide BUN 35 H Creatinine 0.5 L Glucose 122 H POC Glucose 125 H Lactic Acid Calcium 8.2 L Phosphorus Magnesium AST ALT Alkaline Phosphatase Lactate Dehydrogenase Troponin T C-Reactive Protein NT-Pro-B Natriuret Pep Total Protein Albumin LDL Cholesterol Direct Vitamin B12 Crossmatch 12/21/21 12/21/21 12/21/21 05:38 11:29 16:16 WBC RBC Hgb Hct MCV MCH MCHC RDW Plt Count Seg Neuts % (Manual) Lymphocytes % (Manual) Seg Neutrophils # Man Lymphocytes # (Manual) Monocytes # (Manual) PT INR D-Dimer ABG pH ABG pO2 ABG HCO3 ABG O2 Saturation ABG Base Excess ABG Hemoglobin Oxyhemoglobin Sodium Potassium Chloride Carbon Dioxide BUN Creatinine Glucose POC Glucose 127 H 121 H 113 H Lactic Acid Calcium Phosphorus Magnesium AST ALT Alkaline Phosphatase Lactate Dehydrogenase Troponin T C-Reactive Protein NT-Pro-B Natriuret Pep Total Protein Albumin LDL Cholesterol Direct Vitamin B12 Crossmatch 12/22/21 12/22/21 12/23/21 04:58 04:58 06:40 WBC 11.5 H RBC 3.43 L Hgb 9.8 L Hct 28.7 L MCV MCH MCHC RDW 18.5 H 17.9 H Plt Count Seg Neuts % (Manual) Lymphocytes % (Manual) Seg Neutrophils # Man Lymphocytes # (Manual) Monocytes # (Manual) PT INR D-Dimer ABG pH ABG pO2 ABG HCO3 ABG O2 Saturation ABG Base Excess ABG Hemoglobin Oxyhemoglobin Sodium 130 L Potassium Chloride 97.8 L Carbon Dioxide BUN 31 H Creatinine 0.5 L Glucose 122 H POC Glucose Lactic Acid Calcium 7.9 L Phosphorus Magnesium AST ALT Alkaline Phosphatase Lactate Dehydrogenase Troponin T C-Reactive Protein NT-Pro-B Natriuret Pep Total Protein Albumin LDL Cholesterol Direct Vitamin B12 Crossmatch 12/23/21 12/23/21 12/24/21 06:40 23:25 04:24 WBC 11.7 H RBC Hgb 9.8 L Hct MCV MCH 26 L MCHC RDW 18.1 H Plt Count Seg Neuts % (Manual) Lymphocytes % (Manual) Seg Neutrophils # Man Lymphocytes # (Manual) Monocytes # (Manual) PT INR D-Dimer ABG pH ABG pO2 ABG HCO3 ABG O2 Saturation ABG Base Excess ABG Hemoglobin Oxyhemoglobin Sodium 136 L Potassium Chloride Carbon Dioxide BUN 27 H Creatinine 0.4 L Glucose 107 H POC Glucose 110 H Lactic Acid Calcium 8.1 L Phosphorus Magnesium AST ALT Alkaline Phosphatase Lactate Dehydrogenase Troponin T C-Reactive Protein NT-Pro-B Natriuret Pep Total Protein Albumin LDL Cholesterol Direct Vitamin B12 Crossmatch 12/24/21 12/24/21 04:24 11:08 WBC RBC Hgb Hct MCV MCH MCHC RDW Plt Count Seg Neuts % (Manual) Lymphocytes % (Manual) Seg Neutrophils # Man Lymphocytes # (Manual) Monocytes # (Manual) PT INR D-Dimer ABG pH ABG pO2 ABG HCO3 ABG O2 Saturation ABG Base Excess ABG Hemoglobin Oxyhemoglobin Sodium 132 L Potassium Chloride Carbon Dioxide BUN 27 H Creatinine 0.3 L Glucose 108 H POC Glucose 116 H Lactic Acid Calcium Phosphorus Magnesium AST ALT Alkaline Phosphatase Lactate Dehydrogenase Troponin T C-Reactive Protein NT-Pro-B Natriuret Pep Total Protein Albumin LDL Cholesterol Direct Vitamin B12 Crossmatch Chest x-ray: image reviewed (slight recirrence of right pleural effusion likely) Allied health notes reviewed: nursing
[2021-12-24] MEDS ORDERED: QUEtiapine 25 MG TAB PO STA (12:38)
[2021-12-24] MEDS: DOCUSATE SODIUM 100 MG/10 ML ORAL LIQD PO SCH ×2 (12:51→21:01)
--- NOTE | 2021-12-24 13:44 | XRay Report ---
CHEST 1 VIEW 12/24/2021 12:08 PM INDICATION / CLINICAL INFORMATION: Shortness of Breath. COMPARISON: 12/11/2021 FINDINGS: SUPPORT DEVICES: Stable, satisfactory device positioning. HEART / MEDIASTINUM: No significant abnormality. LUNGS / PLEURA: Diffuse bilateral pulmonary opacities. Suboptimal lung volume lower lobe atelectasis and effusions No pneumothorax. Signer Name: Eduard Hahn MD Signed: 12/24/2021 1:40 PM Workstation Name: [id number]
--- NOTE | 2021-12-24 14:01 | XRay Report ---
ABDOMEN 1 VIEW(S) INDICATION / CLINICAL INFORMATION: distension. COMPARISON: 12/04/2021 FINDINGS: TUBES / LINES: Peg tube overlies the gastric shadow. IVC filter is noted at the L2 level. BOWEL GAS PATTERN: There is a large amount of gas in the stomach. There is normal gas in the small [place] wel loops and colon. FREE AIR / EXTRALUMINAL GAS: None seen. ADDITIONAL FINDINGS: No significant additional findings. IMPRESSION: A PEG tube is in position. There is moderate gaseous distention of the stomach. Correlate for gastric outlet obstruction. Signer Name: Job López Jr, MD Signed: 12/24/2021 1:57 PM Workstation Name: [id number]
[2021-12-24] MEDS: VANCOMYCIN/NS 1 GM/250 ML 1 GM/250 ML BAG IV SCH (14:33)
[2021-12-24] MEDS: SIMETHICONE 80 MG CHEW TAB PO SCH ×2 (14:36→20:21)
[2021-12-24] MEDS: ALPRAZolam 0.25 MG TAB PO PRN (14:37)
--- NOTE | 2021-12-24 16:31 | Progress Note ---
Assessment and Plan Cultures: SARS CoV2 PCR: negative 11/03/2021 blood culture: Group B streptococcus 11/04/2021 blood culture: no growth 11/11/2021 blood culture: No growth 12/16/2021 tracheal aspirate culture no growth so far 12/16/2021 blood culture no growth so far A/P: 81-year-old female with diabetes mellitus, hypertension, arthritis was admitted with shortness of breath. She was also having fever: #Acute fevers: Likely secondary to MRSA bacteremia and pneumonia #MRSA bacteremia: Likely secondary to pneumonia. pacemaker in place. #Acute hypoxic respiratory failure: Secondary to above. Tracheostomy, on the vent. #Acute DVT: unable to anticoagulate Recs: -Continue vancomycin goal trough 10-20. Plan for 6 weeks -Follow up repeat blood cultures -She does have a pacer in place, and given her critical illness would doubt she would be a candidate for removal if vegetation found. As such would recommend 6 weeks IV antibiotics followed by PO suppression with bactrim for life. Will follow. Mahogany Montes MD [facility] ([facility] O: [phone] F: [phone] Subjective Date of service: 12/24/21 Principal diagnosis: Septic shock; AHRF; Anemia; Pneumonia; pleural effusion; HFrEF; Pulm HTN Interval history: Afebrile, white count 11.7. Imaging personally reviewed: Chest x-ray: Diffuse pulmonary opacities Objective - Exam Narrative Exam: Physical exam deferred to reduce risk of transmission of COVID-19. Please refer to primary team's note. - Constitutional Vitals: Vital Signs Temp Pulse Resp BP Pulse Ox 97.8 F 88 25 H 101/50 96 12/24/21 13:04 12/24/21 12:35 12/24/21 12:30 12/24/21 12:35 12/24/21 12:35 Temperature -Last 24 Hours Temperature 97.8 F Temperature 98.3 F Temperature 97.7 F Temperature 98.7 F Temperature 97.6 F - Labs CBC & Chem 7: 12/24/21 04:24 12/24/21 04:24 Labs: Abnormal lab results 12/23/21 12/24/21 12/24/21 Range/Units 23:25 04:24 04:24 WBC 11.7 H (4.5-11.0) K/mm3 Hgb 9.8 L (10.1-14.3) gm/dl MCH 26 L (28-32) pg RDW 18.1 H (13.2-15.2) % Sodium 132 L (137-145) mmol/L BUN 27 H (7-17) mg/dL Creatinine 0.3 L (0.6-1.2) mg/dL Glucose 108 H (65-100) mg/dL POC Glucose 110 H (70-105) mg/dL 12/24/21 12/24/21 Range/Units 11:08 15:45 WBC (4.5-11.0) K/mm3 Hgb (10.1-14.3) gm/dl MCH (28-32) pg RDW (13.2-15.2) % Sodium (137-145) mmol/L BUN (7-17) mg/dL Creatinine (0.6-1.2) mg/dL Glucose (65-100) mg/dL POC Glucose 116 H 107 H (70-105) mg/dL
--- NOTE | 2021-12-24 17:05 | Progress Note ---
Assessment and Plan Assessment and plan: This is a 81-year-old female with known history of diabetes mellitus, hypertension, PPM, and arthritis admitted for sepsis and acute hypoxia respiratory failure 2/2 bilateral pneumonia requiring intubation and ventilatory support Assessment and Plan Neuro : Anxiety, chronic pain -Neurology consulted, appreciate recommendations -CT brain showed no acute events -EEG interpreted as abnormal record due to diffuse slowing noted throughout the recording, suggestive of encephalopathic process and/or drug effect, possibilities of postictal state cannot be totally excluded. Clinical correlation is in order -MRI brain not obtained-> patient has metal in her body -Repeat CT head with no acute findings -Reorientation as needed -Ammonia 42, B12 1823, TSH 1.5 -BuSpar, Seroquel, [place], gabapentin -xanax changed to PRN, fent patch dc 12/14 -prn xanax and Dilaudid Cardio: Acute Heart failure with reduced EF, h/o chronic heart block s/p PPM, HTN, CAD s/p PCI (2004), Moderate pulmonary HTN, cardiomyopathy -s/p vasopressor support with levophed -11/04 echocardiogram shows EF 30 to 35%, Moderate pulmonary HTN RVSP 49 -/ echo with 35-40% EF -Cardiology consulted, appreciate recommendations -Continue beta-charleen and statin therapy -Midodrine (titrate as needed) -Not on aspirin due to allergy -Blood pressure monitoring per protocol -As needed nitroglycerin Resp: Acute hypoxic respiratory failure secondary to bilateral pneumonia, bilateral pleural effusion. Right pneumothorax (resolved) -COVID-19 PCR negative -Intubated on 11/06 with 6.00 ETT at 18 at the lip and changed over bougie on 11/11-7.50 ETT at 20 at the lip -See RT notes for titration -PSV as tolerated -Surgery consult for trach -Received trach/PEG on 11/26 -S/p bedside bronchoscopy on 11/11 complicated by pneumothorax -S/p chest tube placement for right pneumothorax and dislodgment by patient on 11/15 -ABG/CXR per [facility] -VAP bundle -Right chest wall ultrasound showed pleural effusion s/p chest tube -12/11 US thoracentesis removed 1L fluid -SPO2 monitoring -Mucomyst every 8 -Albuterol every 8 GI: S/p GI bleed, duodenal ulcer, transaminitis -GI consulted, appreciate recommendations -Nutrition consult for tube feeding -BR: Senokot, MiraLAX -s/p peg 11/26 -H2 charleen -Carafate -24-hour +395 ml -10/2021 Gastric occult positive -> EGD-> duodenal ulcer -12/14 occult stool positive : Urinary retention (resolved), hyponatremia, hypochloremia -Strict intake and output -Trend BMP ID: Septic shock (POA-resolved), bilateral pneumonia, MRSA bacteremia/pna -Infectious disease consulted, appreciate recommendations -COVID-19 PCR negative -Presented with fevers, leukocytosis and hypotension -11/04 blood cultures positive with a group B strep bacteremia 12/19 however repeat blood cultures on the with no growth to date -Echo showed no evidence of vegetation -repeat echo showed EF 35-40 % with no vegetations -ABX therapy: IV vancomycin -Monitor WBC and fever curve -Bedside bronchoscopy for mucous plug on CXR 11/11 -f/u blood cultures Heme: Acute DVT in the right external iliac vein, common femoral vein, superior aspect of femoral vein, Acute microcytic anemia -Evidenced on bilateral upper lower extremity ultrasound -S/p 7 unit PRBC -Trend CBC -Transfuse for hemoglobin less than 7 -heparin gtt dc d/t anemia -S/p IVC filter Endo: h/o DM and hypothyroidism -Continue home Synthroid -SSI -Accu-Cheks every 6 -Avoid hypoglycemia Disposition: Denied LTAC placement by insurance, appeal denied. Awaiting subacute rehab placement The high probability of a clinically significant, sudden or life threatening deterioration of the [multi] system(s) required my full and direct attention, intervention and personal management. The aggregate critical care time was [60] minutes. This time is in addition to time spent performing reported procedures but includes the following: [x] Data Review and interpretation [x] Patient assessment and monitoring of vital signs [x] Documentation [x] Medication orders and management Disposition Plan: icu Total Time Spent with Patient (Minutes): 60 History Interval history: This is an 82-year-old female with DM, HTN , CHB s/p PPM, CAD s/p PCI and arthritis who presented to the emergency department on 11/04 for shortness of breath ongoing for the past 3 days, cough and according to family a fever of 102.2. Upon arrival of EMS patient was found to be tachypneic and hypoxic with SPO2 of 76% on room air which later improved to 88% on nonrebreather. Work-up in the emergency department included a CXR which showed bilateral interstitial pulmonary edema with bilateral pleural effusions and bibasilar opacities, leukocytosis and anemia with a hemoglobin of 6.1. Patient was admitted to the hospitalist service with acute anemia, acute hypoxic respiratory failure, bilateral pneumonia and COVID-19 PUI with consults to pulmonology, infectious disease and later cardiology. Patient was eventually intubated in the emergency department on 11/06. Hospital Course to date: 11/04/2021: Empiric therapy with iv levaquin/vancomycin. COVID PCR pending. Will consult ID. PCCM consulted, will follow recs. Hypotensive this AM, ordered bolus and fluids at 150 cc/hr. May require pressor support if bp does not improve. 11/05/2021: GBS on bcx +, currently on rocephin IV. Currently on bipap due to respiratory distress overnight. Worsening BL opacities on CXR. May be volume overload vs pneumonia. Unfortunately bp too low for lasix at this point. WIll continue levophed and bipap. Once able to tolerate, may do trial of albumin/lasix. Call attempt made to Niraj, no response. Will try again tomorrow to update. 11/06/2021: Decompensated overnight requiring intubation. CXR shows worsening interstitial infiltrates. Currenlty on dopamine, levophed, vasopressin. PICC line ordered. Advised RN to place gamble for I/O monitoring. Would benefit from diuresis but very volume overloaded. Prognosis guarded 11/08: Off sedation this am, remains unresponsive only grimace to pain. Hold all sedatives agents for now, patient is off pressors this am. Hypernatremia from today's lab- D5W X1bag, and low K repleted, repeat lab in the am. Severe constipation also noted from KUB, BR added. 11/09: Sudden SPO2 drop in the 60s this am. Patient was manually bagged and deep suctioned. Patient is currently stable on the vent, repeat CXR with no significant change. D/w CCM Mucomyst and brochodilator added. Patient mentation is unchanged, continue to hold off on sedative agents. Neurology consulted. 11/10: Acute DVT noted on bilateral lower extremity Doppler ultrasound therefore she was started on Lovenox treatment dose. Failed SBT. Hypernatremia and hyperchloremia noted, free water flush adjusted. 11/11: Patient noted to be febrile with increasing of the cytosis, UA/BC sent and CXR ordered. ID escalated antibiotics to cefepime. CXR demonstrated mucous plug, bedside bronchoscopy was performed and O ETT was changed over bougie from 6 cm to 7.5. Patient was noted to have a pneumothorax postprocedure and chest tube was placed. Family updated by [facility]. Free water flush increased and will add Jaswant supplementation. 11/12: Patient not noted to follow commands, hypernatremia worsen/persist, increasing free water flush, potassium and magnesium and phosphorus repleted. Hemoglobin noted to be 7.1/24.5 from 7.03/12 yesterday. We will continue to trend and monitor. Vent changes per [facility]. Repeat CXR showed no residual pneumothorax. Consider waterseal tomorrow. Given persistent leukocytosis antibiotics escalated to cefepime per ID. 11/13: Remains on cefepime and vancomycin, vent changes per [facility]. Anemia noted and given 1 unit PRBC. And beta-charleen held in setting of Levophed drip infusing. Remains on fentanyl drip. 11/14: Patient put on CPAP trial by [facility], will continue chest tube until after extubation. Will rest on assist control. CT brain was cancelled by real time trader and reordered. 11/15: Patient removed chest tube overnight. Will obtain cxr. remains on low dose levo. CTH completed with no acute findings. RT to place on CPAP. 11/16: Hypernatremia/hyperchloremia noted on the increase of day water flushes. Anemia noted and ordered PRBC. asked RT to place on cpap but not done yet 11/17: Patient remains on the vent, awake and following commands. H&H stable s/p 2units PRBCs. GI on consult, no intervention at this time. Will continue protonix gtt and serial H&H Q6hrs. Keep patient NPO for now, D5w added for hypernatremia and NPO status. Plan for IVC filter placement today by Vascular. 11/18: Patient is s/p IVC filter. H&H continue to trend down, hbg 6.1 this am, 1 unit of PRBCs ordered. Plan for possible EGD today by GI. Keep patient NPO, continue PPI drip and serial H&H Q6hrs. Electrolytes repleted, repeat lab in the am 11/19: S/p EGD- larger duodenal ulcer noted, see operative note. GI recommendations noted also noted. H&H stable this am. Keep patient on protonix gtt for now. Will keep patient NPO, continue IVF and serial H&H for now. Electrolytes repleted, repeat labs in the am 11/20: Very agitated and restless this am, fentanyl gtt resumed. Patient remains on protonix gtt, H&H remains stable. Will switch protonix gtt to IV BID, continue carafate and okay to resume meds at this time. Will F/u with GI to see if TF can be resumed. Gamble was reinserted overnight for retention. Electrolytes repleted, repeat in the am. Plan for possible PST today for possible extubation per CCM. 11/21: Patient is now on seroquel and patient's home buspar resumed. Patient more calm this morning, fentanyl gtt is off. H&H remains stable and patient is tolerating TF. Patient had a runs of Vtach/PVCs this am, BB added per Cardio. Continue daily PS and wean trial for possible extubation. 11/22: Back on fentanyl gtt overnight , RASS o to -1, following commands. Patient failed PST this am due to increased work of breathing and low SPO2, ABG pending. Patient is also with worsen pitting edema, lasix is still on hold. Will discuss with cardio and CCM to possibly resume lasix. 11/23: MARIA DEL CARMEN overnight. Patient failed PST again this am. Per CCM plan for possible trach and PEG, hold off on IV lasix for now. General surgery consulted and family is aware of possible Trach and PEG. 11/24: Trach/PEG pending this week, continue SBT/SAT as tolerated. No acute events reported overnight. 11/25: Patient was n.p.o. overnight and will remain n.p.o. tonight for trach/PEG tomorrow morning. She failed to support trial again. KUB obtained due to distended belly. 11/26: Patient scheduled for tracheostomy and PEG tube placement today, has been n.p.o. since midnight. No acute events reported overnight. [facility] ordered simethicone scheduled. 11/27: No acute events reported overnight, patient received trach/PEG yesterday. Has been on feedings since last night. Still awaiting LTAC placement. 11/28: Patient magnesium repleted, repeat a.m. labs, SBT 11/29: Patient complains of chest pain but ECG obtained which showed no acute findings, ordered troponin. Patient failed CPAP yesterday and was trialed again today. levophed was restarted but will aggressively wean 11/30: Patient failed SBT. Continue supportive care. Started gabapentin today 12/01: MARIA DEL CARMEN overnight. Continue daily PST. Case management to arrange possible placement 12/02: Report of dark stools overnight, patient is hemodynamically stable. H&H stable, patient is on PPI. Will continue to trend H&H. Continue daily PST as tolerated. Awaiting LTAC vs SNF placement. 12/03: Hypotensive overnight, requiring low dose pressors. S/p X3 days of gentle diurese. Will continue to monitor, wean off pressors as tolerated for MAP of 65. Patient Failed PST yesterday, case management to follow up with insurance for possible LTAC placement. Continue daily PST as tolerated. PT eval and treat ordered. 12/04: Increased agitation and anxiety overnight, remains on buspar and seroquel, trazadone added to promote rest. Patient is now working with PT, keep patient engage and awake during the day so she can rest at night. No BM for over 5 days, BR was adjusted. Patient did not tolerate PST again yesterday, continue daily PST as tolerated. Continue to titrate pressor for MAP above 65. Pending possible LTAC placement, case management to arrange. 12/05: Still not getting much rest overnight, will add melatonin for sleep. Continue to engage patient during the day and promote rest at night. TF was held due to concern for possible bleeding, H&H remains stable and stools normal this am. Resume TF and continue PPI and carafate. Remains on low dose levophed, titrate as tolerated. Continue daily PST. Possible LTAC placement, awaiting approval. 12/06: MARIA DEL CARMEN overnight. Patient rested overnight. Continue supportive measures. Daily PST as tolerated. Awaiting possible LTAC placement 12/07: MARIA DEL CARMEN overnight. Plan for Tpiece trial today. Continue current supportive measures. Possible LTAC placement 12/08: Patient placed on pressure support trial again today, started on Xanax, no acute events reported overnight. Awaiting insurance approval for LTAC. 12/09: Levophed discontinued, LTAC transfer denied, started on midodrine and Lasix, ultrasound chest pending, started on Xanax 0.[address] De León updated family at bedside today. Started on Dilaudid every 3 hours as needed. 12/10: Patient placed on CPAP trial this morning, no acute events reported overnight. Will order ultrasound-guided thoracentesis. 12/11: Patient had a thoracentesis today, will decrease Xanax dosage and continue midodrine and diuresing. Patient failed CPAP today. 12/12: Patient not tolerate CPAP trials today, no acute events reported overnight 12/13: No acute events overnight. continue PSV trials as tolerated. Daughter updated at bedside 12/14: Patient noted to be anemic today, ordered gastric occult. Patient seems to be oversedated therefore Xanax changed to as needed and fentanyl patch discontinued. We will continue to monitor hyponatremia. 12/15: MARIA DEL CARMEN overnight. s/p 1unit of PRBCs, H&H stable this am, no signs of any active bleeding. Continue daily PST as tolerated. Awaiting placement. 12/16: Hypertensive this am, Midodrine decreased. Continue daily PST. MARIA DEL CARMEN overnight 12/17: Patient Hgb dropped to 6 this am, no s/s of any active bleeding, VSS. Patient received 1unit of PRBC, will continue to trend H&H. Patient was pancultured and back on IV Abx due to persistent fevers yesterday. ID is also back on the case. Continue IV Abx per ID and f/u on cultures data for sensitivity. Patient also failed PST yesterday, continue daily PST as tolerated. Electrolytes repleted, repeat labs in the am. 12/18: Patient blood cultures is growing GPC 4 out 4 bottles. PICC line D/Rivas, patient is already on IV Abx-cefepine and Vanc and ID is following. Patient remains hemodynamically stable. Daily PST as tolerated adn PRN Benzo for anxiety. 12/19: MARIA DEL CARMEN overnight. Culture data noted, continue IV Abx per ID. Orders placed for repeat Bculture. Gamble D/C overnight, patient is voiding. Check bladder scan as needed for retention. Patient failed PST again today. Continue daily PST as tolerated. 12/20: Fevers improved, Cultures +MRSA, on Vanco per ID. Repeat 2D Echo to r/o endocarditis. Patient continue to fail PST, PEEP increased to 8 today. Continue pulmonary hygiene and vent wean per [facility]. Sodium tab added for hyponatremia. 12/22: Patient on pressure support trial for approximately 4 hours today, midodrine dosage increased due to hypotension. Lasix discontinued. 12/23: Started on a.m. Seroquel dose, midodrine increased to 10 mg 3 times daily, 500 mL normal saline bolus. 12/24: Seroquel dose changed (25 every morning, 75 nightly). updated at bedside by Dr. De León. CPAP trials as tolerated. Continue vancomycin. Awaiting placement. Hospitalist Physical - Physical exam Narrative exam: General appearance: Present: no acute distress, other (Trah and on the vent) - EENT Eyes: Present: PERRL, EOM intact ENT: hearing intact, clear oral mucosa, dentition normal - Neck Neck: Present: normal ROM - Respiratory Respiratory effort: normal Respiratory: bilateral: diminished - Cardiovascular Rhythm: regular Heart Sounds: Present: S1 & S2. Absent: systolic murmur - Extremities Extremities: no ischemia, pulses intact, pulses symmetrical, No edema, normal temperature, normal color Peripheral Pulses: within normal limits - Abdominal General gastrointestinal: soft, non-tender, non-distended, normal bowel sounds - Integumentary Integumentary: Present: warm, dry - Psychiatric Psychiatric: cooperative - Neurologic Neurologic: CNII-XII intact, no focal deficits, moves all extremities - Allied Health Allied health notes reviewed: nursing, RT, social work - Constitutional Vitals: Temp Pulse Resp BP Pulse Ox 97.6 F 88 25 H 101/50 96 12/24/21 16:00 12/24/21 12:35 12/24/21 12:30 12/24/21 12:35 12/24/21 12:35 General appearance: Present: no acute distress, other (Trach and on the vent) HEART Score - HEART Score Troponin: Troponin T 0.045 ng/mL (0.00-0.029) H 11/29/21 20:15 Results - Labs CBC & Chem 7: 12/24/21 04:24 12/24/21 04:24 Labs: Laboratory Last Values WBC 11.7 K/mm3 (4.5-11.0) H 12/24/21 04:24 RBC 3.75 M/mm3 (3.65-5.03) 12/24/21 04:24 Hgb 9.8 gm/dl (10.1-14.3) L 12/24/21 04:24 Hct 31.8 % (30.3-42.9) 12/24/21 04:24 MCV 85 fl (79-97) 12/24/21 04:24 MCH 26 pg (28-32) L 12/24/21 04:24 MCHC 31 % (30-34) 12/24/21 04:24 RDW 18.1 % (13.2-15.2) H 12/24/21 04:24 Plt Count 259 K/mm3 (140-440) 12/24/21 04:24 Add Manual Diff Complete 12/20/21 04:54 Total Counted 100 12/20/21 04:54 Seg Neutrophils % Fretted Instrument Inspector 11/06/21 15:50 Seg Neuts % (Manual) 88.0 % (40.0-70.0) H 12/20/21 04:54 Band Neutrophils % 0 % 12/20/21 04:54 Lymphocytes % (Manual) 6.0 % (13.4-35.0) L 12/20/21 04:54 Reactive Lymphs % (Man) 0 % 12/20/21 04:54 Monocytes % (Manual) 5.0 % (0.0-7.3) 12/20/21 04:54 Eosinophils % (Manual) 1.0 % (0.0-4.3) 12/20/21 04:54 Basophils % (Manual) 0 % (0.0-1.8) 12/20/21 04:54 Metamyelocytes % 0 % 12/20/21 04:54 Myelocytes % 0 % 12/20/21 04:54 Promyelocytes % 0 % 12/20/21 04:54 Blast Cells % 0 % 12/20/21 04:54 Nucleated RBC % Not Reportable 12/20/21 04:54 Seg Neutrophils # Man 10.8 K/mm3 (1.8-7.7) H 12/20/21 04:54 Band Neutrophils # 0.0 K/mm3 12/20/21 04:54 Lymphocytes # (Manual) 0.7 K/mm3 (1.2-5.4) L 12/20/21 04:54 Abs React Lymphs (Man) 0.0 K/mm3 12/20/21 04:54 Monocytes # (Manual) 0.6 K/mm3 (0.0-0.8) 12/20/21 04:54 Eosinophils # (Manual) 0.1 K/mm3 (0.0-0.4) 12/20/21 04:54 Basophils # (Manual) 0.0 K/mm3 (0.0-0.1) 12/20/21 04:54 Metamyelocytes # 0.0 K/mm3 12/20/21 04:54 Myelocytes # 0.0 K/mm3 12/20/21 04:54 Promyelocytes # 0.0 K/mm3 12/20/21 04:54 Blast Cells # 0.0 K/mm3 12/20/21 04:54 WBC Morphology Not Reportable 12/20/21 04:54 Hypersegmented Neuts Not Reportable 12/20/21 04:54 Hyposegmented Neuts Not Reportable 12/20/21 04:54 Hypogranular Neuts Not Reportable 12/20/21 04:54 Smudge Cells Not Reportable 12/20/21 04:54 Toxic Granulation Not Reportable 12/20/21 04:54 Toxic Vacuolation Not Reportable 12/20/21 04:54 Dohle Bodies Not Reportable 12/20/21 04:54 Pelger-Huet Anomaly Not Reportable 12/20/21 04:54 Irina Rods Not Reportable 12/20/21 04:54 Platelet Estimate Consistent w auto 12/20/21 04:54 Clumped Platelets Not Reportable 12/20/21 04:54 Plt Clumps, EDTA Not Reportable 12/20/21 04:54 Large Platelets Not Reportable 12/20/21 04:54 Giant Platelets Not Reportable 12/20/21 04:54 Platelet Satelliting Not Reportable 12/20/21 04:54 Plt Morphology Comment Not Reportable 12/20/21 04:54 RBC Morphology Not Reportable 12/20/21 04:54 Dimorphic RBCs Not Reportable 12/20/21 04:54 Polychromasia Not Reportable 12/20/21 04:54 Hypochromasia Not Reportable 12/20/21 04:54 Poikilocytosis Not Reportable 12/20/21 04:54 Anisocytosis 1+ 12/20/21 04:54 Microcytosis Not Reportable 12/20/21 04:54 Macrocytosis Not Reportable 12/20/21 04:54 Spherocytes Not Reportable 12/20/21 04:54 Pappenheimer Bodies Not Reportable 12/20/21 04:54 Sickle Cells Not Reportable 12/20/21 04:54 Target Cells Not Reportable 12/20/21 04:54 Tear Drop Cells Not Reportable 12/20/21 04:54 Ovalocytes Not Reportable 12/20/21 04:54 Helmet Cells Not Reportable 12/20/21 04:54 Odonnell-Seba Dalkai Bodies Not Reportable 12/20/21 04:54 [place] Rings Not Reportable 12/20/21 04:54 [place] Cells Not Reportable 12/20/21 04:54 Bite Cells Not Reportable 12/20/21 04:54 Crenated Cell Not Reportable 12/20/21 04:54 Elliptocytes Not Reportable 12/20/21 04:54 Acanthocytes (Spur) Not Reportable 12/20/21 04:54 Rouleaux Not Reportable 12/20/21 04:54 Hemoglobin C Crystals Not Reportable 12/20/21 04:54 Schistocytes Not Reportable 12/20/21 04:54 Malaria parasites Not Reportable 12/20/21 04:54 Godrfey Bodies Not Reportable 12/20/21 04:54 Hem Pathologist Commnt No 12/20/21 04:54 PT 16.9 Sec. (12.2-14.9) H 11/26/21 05:00 INR 1.24 (0.87-1.13) H 11/26/21 05:00 APTT 29.2 Sec. (24.2-36.6) 11/26/21 05:00 D-Dimer 2655.00 ng/mlDDU (0-234) H 11/11/21 04:28 ABG pH 7.479 pH Units (7.350-7.450) H 12/16/21 20:52 ABG pCO2 37.5 mm Hg 12/16/21 20:52 ABG pO2 79.3 mm Hg (80.0-90.0) L 12/16/21 20:52 ABG HCO3 27.3 mmol/L (20.0-26.0) H 12/16/21 20:52 ABG O2 Saturation 97.0 % (95.0-99.0) 12/16/21 20:52 ABG O2 Content 12.3 (0.0-44) 12/16/21 20:52 ABG Base Excess 3.6 mmol/L (-2.0-3.0) H 12/16/21 20:52 ABG Hemoglobin 9.1 gm/dl (12.0-16.0) L 12/16/21 20:52 ABG Carboxyhemoglobin 1.6 % (0.0-5.0) 12/16/21 20:52 ABG Methemoglobin 0.5 % (0.0-1.5) 12/16/21 20:52 Oxyhemoglobin 94.9 % (95.0-99.0) L 12/16/21 20:52 FiO2 30 % 12/16/21 20:52 Sodium 132 mmol/L (137-145) L 12/24/21 04:24 Potassium 4.1 mmol/L (3.6-5.0) 12/24/21 04:24 Chloride 98.3 mmol/L (98-107) 12/24/21 04:24 Carbon Dioxide 22 mmol/L (22-30) 12/24/21 04:24 Anion Gap 16 mmol/L 12/24/21 04:24 BUN 27 mg/dL (7-17) H 12/24/21 04:24 Creatinine 0.3 mg/dL (0.6-1.2) L 12/24/21 04:24 Estimated GFR > 60 ml/min 12/24/21 04:24 BUN/Creatinine Ratio 90 % 12/24/21 04:24 Glucose 108 mg/dL (65-100) H 12/24/21 04:24 POC Glucose 107 mg/dL (70-105) H 12/24/21 15:45 Lactic Acid 3.70 mmol/L (0.7-2.0) H* 11/03/21 22:32 Calcium 8.4 mg/dL (8.4-10.2) 12/24/21 04:24 Phosphorus 3.40 mg/dL (2.5-4.5) 12/21/21 04:21 Magnesium 1.70 mg/dL (1.7-2.3) 12/21/21 04:21 Ferritin 52.6 ng/mL (10.0-200.0) 11/05/21 06:11 Total Bilirubin 0.50 mg/dL (0.1-1.2) 11/17/21 05:56 Direct Bilirubin < 0.2 mg/dL (0-0.2) 11/11/21 04:28 Indirect Bilirubin 0.1 mg/dL 11/11/21 04:28 AST 36 units/L (5-40) 11/17/21 05:56 ALT 47 units/L (7-56) 11/17/21 05:56 Alkaline Phosphatase 107 units/L (35-129) 11/17/21 05:56 Ammonia 42.0 umol/L (25-60) 11/10/21 14:08 Lactate Dehydrogenase 187 units/L (91-180) H 11/05/21 06:11 Troponin T 0.045 ng/mL (0.00-0.029) H 11/29/21 20:15 C-Reactive Protein 22.20 mg/dL (0.00-1.30) H 11/05/21 06:11 NT-Pro-B Natriuret Pep 7895 pg/mL (0-900) H 11/03/21 22:32 Total Protein 5.1 g/dL (6.3-8.2) L 11/17/21 05:56 Albumin 2.2 g/dL (3.9-5) L 11/17/21 05:56 Albumin/Globulin Ratio 0.8 % 11/17/21 05:56 Triglycerides 59 mg/dL (2-149) 11/29/21 20:15 Cholesterol 74 mg/dL (50-199) 11/29/21 20:15 LDL Cholesterol Direct 25 mg/dL (50-130) L 11/29/21 20:15 HDL Cholesterol 41 mg/dL (40-59) 11/29/21 20:15 Cholesterol/HDL Ratio 1.80 % 11/29/21 20:15 Vitamin B12 1823 pg/mL (211-911) H 11/10/21 14:08 TSH 1.510 mlU/mL (0.270-4.200) 11/10/21 14:08 Urine Color Yellow (Yellow) 11/11/21 09:00 Urine Turbidity Slightly-cloudy (Clear) 11/11/21 09:00 Urine pH 5.0 (5.0-7.0) 11/11/21 09:00 Ur Specific [place] 1.009 (1.003-1.030) 11/11/21 09:00 Urine Protein <15 mg/dl mg/dL (Negative) 11/11/21 09:00 Urine Glucose (UA) Neg mg/dL (Negative) 11/11/21 09:00 Urine Ketones Neg mg/dL (Negative) 11/11/21 09:00 Urine Blood Mod (Negative) 11/11/21 09:00 Urine Nitrite Neg (Negative) 11/11/21 09:00 Urine Bilirubin Neg (Negative) 11/11/21 09:00 Urine Urobilinogen < 2.0 mg/dL (<2.0) 11/11/21 09:00 Ur Leukocyte Esterase Neg (Negative) 11/11/21 09:00 Urine WBC (Auto) < 1.0 /HPF (0.0-6.0) 11/11/21 09:00 Urine RBC (Auto) < 1.0 /HPF (0.0-6.0) 11/11/21 09:00 Vancomycin Trough 15.5 ug/mL (5.0-20.0) 12/19/21 13:48 Coronavirus (PCR) Negative (Negative) 11/10/21 08:30 Blood Type O POSITIVE 12/14/21 10:30 Antibody Screen Negative 12/14/21 10:30 Crossmatch See Detail 12/14/21 10:30 Microbiology: Microbiology 12/19/21 09:36 Peripheral/Venous Blood Culture - Final NO GROWTH AFTER 5 DAYS 12/19/21 09:36 Peripheral/Venous Blood Culture - Final NO GROWTH AFTER 5 DAYS [place]/IV: Voiding Method External Female Catheter Active Medications - Current Medications Current Medications: Generic Name Dose Route Start Last Admin Trade Name Freq PRN Reason Stop Dose Admin Acetaminophen 650 mg 12/14/21 04:12 12/16/21 13:34 Acetaminophen 325 Mg/10.15 Ml Oral Liqd Unit Dose FEEDTUBE 650 mg Q6H PRN Administration Non Cardiac Pain or Temp>100.5 Hydrocodone Bitart/Acetaminophen 1 each 11/21/21 10:00 12/24/21 14:33 Hydrocodone/Acetaminophen 10-325mg Tab FEEDTUBE 1 each TID YOSSI Administration Alprazolam 0.25 mg 12/14/21 09:00 12/23/21 13:13 Alprazolam 0.25 Mg Tab PO 0.25 mg Q8H PRN Administration Agitation Lipase/Protease/Amylase 1 each 11/08/21 11:09 Lipase 10,500/Protease 25,000/Amylase 43,750 (Units) Dr Lmea FEEDTUBE PRN PRN For Clogged Feeding Tube Buspirone HCl 7.5 mg 11/17/21 22:00 12/24/21 11:00 Buspirone 5 Mg Tab PO 7.5 mg BID YOSSI Administration Dextrose 0 ml 11/10/21 10:52 11/21/21 16:27 Dextrose 10% *Hypoglycemia IV 50 ml PRN PRN Administration Hypoglycemia Docusate Sodium 100 mg 12/04/21 11:00 12/24/21 12:51 Docusate Sodium 100 Mg/10 Ml Oral Liqd PO Not Given BID YOSSI Gabapentin 100 mg 12/01/21 10:00 12/24/21 11:00 Gabapentin 100 Mg Cap PO 100 mg QDAY YOSSI Administration Hydromorphone HCl 0.5 mg 12/08/21 20:06 12/20/21 03:35 Hydromorphone 1 Mg/1 Ml Inj IV 0.5 mg Q3H PRN Administration Pain, Moderate (4-6) Hydrophilic Ointment 1 applic 11/06/21 04:02 Lip Therapy Vaseline TP Q2HR PRN Dry Lips Vancomycin HCl 1 gm in 250 mls @ 166.667 mls/hr 12/16/21 14:00 12/24/21 14:33 Vancomycin/Ns 1 Gm/250 Ml IV 01/26/22 15:29 166.66 mls/hr Q24H YOSSI Administration Protocol Lansoprazole 30 mg 11/24/21 22:00 12/24/21 11:00 Lansoprazole 30 Mg Solutab FEEDTUBE 30 mg BID YOSSI Administration Levothyroxine Sodium 125 mcg 11/05/21 07:00 12/24/21 08:20 Levothyroxine 125 Mcg Tab PO 125 mcg DAILY@0600 [facility] Administration Melatonin 5 mg 12/05/21 22:00 12/23/21 21:33 Melatonin 5 Mg Tab PO 5 mg QHS [facility] Administration Metoprolol Tartrate 6.25 mg 12/08/21 22:52 12/24/21 10:12 Metoprolol Tartrate 25 Mg Tab PO Not Given BID [facility] Midodrine 10 mg 12/22/21 14:00 12/24/21 14:34 Midodrine 5 Mg Tab PO 10 mg TID [facility] Administration Multi-Ingred Cream/Lotion/Oil/Oint 1 applic 11/06/21 04:02 Mineral Oil/Petrolatum, White Ophth Oint 3.5 Gm OU Q4HR PRN Dry Eye(s) Nitroglycerin 0.4 mg 11/30/21 11:36 Nitroglycerin 0.4 Mg Tab Subl SL .Q5MIN PRN Chest Pain Ondansetron HCl 4 mg 12/05/21 10:00 12/22/21 23:43 Ondansetron 4 Mg/2 Ml Inj IV 4 mg Q8H PRN Administration Nausea And Vomiting Polyethylene Glycol 17 gm 12/02/21 10:00 12/24/21 10:11 Polyethylene Glycol 3350 17 Gm Powder PO Not Given QDAY [facility] Pravastatin Sodium 20 mg 11/18/21 22:00 12/23/21 21:35 Pravastatin 20 Mg Tab PO 20 mg QHS [facility] Administration Quetiapine Fumarate 75 mg 12/24/21 22:00 Quetiapine 25 Mg Tab PO QHS [facility] Quetiapine Fumarate 25 mg 12/25/21 10:00 Quetiapine 25 Mg Tab PO QAM [facility] Simethicone 160 mg 12/24/21 15:00 Simethicone 80 Mg Chew Tab PO 12/27/21 09:01 Q6H [facility] Simple Syrup 15 ml 11/08/21 11:09 Simple Syrup 15 Ml FEEDTUBE PRN PRN Hypoglycemia Simple Syrup 30 ml 11/08/21 11:09 Simple Syrup 15 Ml FEEDTUBE PRN PRN Hypoglycemia Sodium Bicarbonate 325 mg 11/08/21 11:09 Sodium Bicarbonate 325 Mg Tab FEEDTUBE PRN PRN For Clogged Feeding Tube Sodium Chloride 10 ml 11/04/21 10:00 12/24/21 11:07 Sodium Chloride 0.9% 10 Ml Flush Syringe IV 10 ml BID YOSSI Administration Sodium Chloride 10 ml 11/04/21 02:03 Sodium Chloride 0.9% 10 Ml Flush Syringe IV PRN PRN LINE FLUSH Sucralfate 1 gm 11/18/21 16:30 12/24/21 11:06 Sucralfate 1 Gm/10 Ml Oral Liqd PO 1 gm ACHS YOSSI Administration Trazodone HCl 50 mg 12/04/21 22:00 12/23/21 21:33 Trazodone 50 Mg Tab PO 50 mg QHS YOSSI Administration Nutrition/Malnutrition Assess - Dietary Evaluation Nutrition/Malnutrition Findings: Nutrition Notes Start: 11/04/21 17:16 Freq: Status: Active Protocol: Document 12/22/21 15:53 YOVANI (Rec: 12/22/21 16:03 YOVANI [email or web address]) Nutrition Notes Initial or Follow up Reassessment Current Diagnosis Diabetes,Heart Failure, Respiratory Failure Other Pertinent Diagnosis Pneu, bilat pleural effusion, bacteremia Current Diet TF - Vital AF 1.2 at 40ml/hr Labs/Tests Na 130 BUN 31 Pertinent Medications Reviewed Height 5 ft Weight 71.5 kg [place] Body Weight (kg) 45.45 BMI 30.7 Weight change and time frame Current wt obtained from bed scale Weight Status Obese Subjective/Other Information Pt remains on vent support. Pt tolerating TF at goal rate. RN reports hypotension this am; may need levophed if NS bolus does not work. Percent of energy/protein needs met: 95% energy 79% pro Burn Absent Trauma Absent Minimum of two criteria No #1 Nutrition Diagnosis Inadequate oral intake Diagnosis Progress(for reassessment Continues documentation) Is patient on ventilator? Yes Is Patient Ambulatory and/or Out of Bed No REE-([place]-confined to bed) 1316.916 Kcal/Kg value to use for calculation 17 Approximate Energy Requirements Using 1216 kcal/Kg Calculation Used for Recommendations Kcal/kg Additional Notes Pro needs 2g/kg IBW: 91g/day Fluid needs 1ml/kcal Nutrition Intervention Nutrition Support: Increase TF goal rate to Vital AF 1.2 at 45ml/hr with 70ml water flush q4h. Kcal 1,296 Protein (gm) 81 Carbohydrates (gm) 119 Fat (gm) 58 Fluid (mL) 876 Fiber (gm) 6 Goal #1 TF tolerance Goal #2 TF to meet at least 75% energy and pro needs Follow-Up By: 12/26/21 Additional Comments F/U: TF rate increase, vent status
[2021-12-24] MEDS: PRAVASTATIN 20 MG TAB PO SCH (21:01)
[2021-12-24] MEDS: traZODone 50 MG TAB PO SCH (21:01)
[2021-12-24] MEDS: MELATONIN 5 MG TAB PO SCH (21:01)
[2021-12-24] MEDS: QUEtiapine 25 MG TAB PO SCH (21:02)
[2021-12-25] MEDS: ALPRAZolam 0.25 MG TAB PO PRN (00:04)
[2021-12-25] MEDS: SIMETHICONE 80 MG CHEW TAB PO SCH ×4 (02:53→22:46)
[2021-12-25] MEDS: ONDANSETRON 4 MG/2 ML INJ IV PRN (02:54)
[2021-12-25] MEDS: HYDROmorphone 1 MG/1 ML INJ IV PRN ×2 (02:54→12:02)
[2021-12-25] MEDS: LEVOTHYROXINE 125 MCG TAB PO SCH (06:10)
[2021-12-25] MEDS: HYDROcodone/ACETAMINOPHEN 10-325MG TAB FEEDTUBE SCH ×3 (08:07→22:46)
[2021-12-25] MEDS: MIDODRINE 5 MG TAB PO SCH ×3 (08:07→22:46)
[2021-12-25] MEDS: SUCRALFATE 1 GM/10 ML ORAL LIQD PO SCH ×4 (08:07→22:47)
[2021-12-25] MEDS: DOCUSATE SODIUM 100 MG/10 ML ORAL LIQD PO SCH ×2 (09:39→22:48)
[2021-12-25] MEDS: QUEtiapine 25 MG TAB PO SCH ×2 (09:39→22:59)
[2021-12-25] MEDS: LANSOPRAZOLE 30 MG SOLUTAB FEEDTUBE SCH ×2 (09:39→22:46)
[2021-12-25] MEDS: GABAPENTIN 100 MG CAP PO SCH (09:39)
[2021-12-25] MEDS: busPIRone 5 MG TAB PO SCH (09:39)
[2021-12-25] MEDS: POLYETHYLENE GLYCOL 3350 17 GM POWDER PO SCH (09:40)
[2021-12-25] MEDS: METOPROLOL TARTRATE 25 MG TAB PO SCH ×2 (09:40→22:47)
--- NOTE | 2021-12-25 12:15 | Progress Note ---
Assessment and Plan Gram positive Bacteremia (MRSA) Acute respiratory failure with hypoxia, now on MVS Acute microcytic anemia Bilateral pneumonia DVT Left pleural effusion Cardiomyopathy EF 30-35% Moderate pulmonary HTN RVSP 49e - bolus 250 mls IVNS re: hypotension - continue Vancomycin for MRSA (6 weeks of therapy recommended) - no new issues otherwise, continue care as below; - LTAC evaluation ongoing - continue daily SAT and SBT assessment as tolerated - prn Levophed for target MAP > 65 mmHg - continue to wean supplemental oxygen for target O2 sat's > 90% acutely - VAP bundle addressed - continue lung protective strategies - continue bronchodilators with routine trach care and pulmonary hygiene per RT - wean per pulmonary driven protocols otherwise - avoid nephrotoxins, renally dose all medications - continue accuchecks with glycemic control per SSI (While critically ill target blood glucose of 140-180 mg/dL; avoid hypoglycemia) - sedation prn for target RASS 0 to -1 - antibiotics per ID recommendations - continue to avoid benzodiazepine's, reduce the possibility of delirium - prn analgesia per CPOT score - Maintenance of sleep-wake cycle, avoid delirium - continue enteral nutritional support at goal rate as tolerated - G.I. & VTE prophylaxis - PT/OT/ROM exercises - continue mobility protocols for pressure ulcer prophylaxis - Monitor hemodynamics closely - continue other care per attending / other consultants - discharge planning ongoing concurrently COVID SPECIFIC INTERVENTIONS - COVID-19 PCR negative .... Re-evaluate in am & prn CONDITION: CRITICAL PROGNOSIS: GUARDED CODE STATUS: FULL CODE The high probability of a clinically significant, sudden or life-threatening d eterioration of the [respiratory, cardiovascular & neurologic] system(s) required my full and direct attention, intervention and personal management. The aggregate critical care time was [32] minutes without overlap. 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%; Pulm HTN RVSP 49 Seen and examined at bedside; 24hour events reviewed; nursing and respiratory care staff consulted; no adverse overnight events reported to me; resting in bed; remains a difficult wean; BP's running low; no gross bleeding; denies N/V/F/C Objective Vital Signs - 12hr 12/25/21 12/25/21 12/25/21 00:30 01:00 01:30 Temperature Pulse Rate 70 79 64 Respiratory 16 14 14 Rate Blood Pressure 93/51 101/63 101/63 O2 Sat by Pulse 100 100 100 Oximetry O2 Sat by Pulse Oximetry [ Assessment] 12/25/21 12/25/21 12/25/21 02:00 02:30 03:00 Temperature Pulse Rate 75 83 65 Respiratory 15 15 14 Rate Blood Pressure 109/61 109/61 83/49 O2 Sat by Pulse 100 99 98 Oximetry O2 Sat by Pulse Oximetry [ Assessment] 12/25/21 12/25/21 12/25/21 03:30 03:44 04:00 Temperature 97.5 F L Pulse Rate 70 64 Respiratory 14 13 Rate Blood Pressure 83/49 90/51 O2 Sat by Pulse 98 99 Oximetry O2 Sat by Pulse Oximetry [ Assessment] 12/25/21 12/25/21 12/25/21 04:19 04:28 04:30 Temperature Pulse Rate 79 74 Respiratory 14 Rate Blood Pressure 90/51 90/51 O2 Sat by Pulse 98 99 Oximetry O2 Sat by Pulse 100 Oximetry [ Assessment] 12/25/21 12/25/21 12/25/21 05:00 05:31 06:00 Temperature Pulse Rate 66 66 65 Respiratory 14 14 13 Rate Blood Pressure 85/50 85/50 91/51 O2 Sat by Pulse 99 100 98 Oximetry O2 Sat by Pulse Oximetry [ Assessment] 12/25/21 12/25/21 12/25/21 06:31 07:00 07:13 Temperature 97.9 F Pulse Rate 66 63 Respiratory 14 14 Rate Blood Pressure 91/51 83/49 O2 Sat by Pulse 100 99 Oximetry O2 Sat by Pulse Oximetry [ Assessment] 12/25/21 12/25/21 12/25/21 07:31 08:00 08:25 Temperature Pulse Rate 77 65 71 Respiratory 15 13 Rate Blood Pressure 83/49 86/49 86/49 O2 Sat by Pulse 99 99 99 Oximetry O2 Sat by Pulse 99 Oximetry [ Assessment] 12/25/21 12/25/21 12/25/21 08:31 09:01 09:31 Temperature Pulse Rate 73 75 70 Respiratory 20 28 H 23 Rate Blood Pressure 86/49 108/60 108/60 O2 Sat by Pulse 99 97 99 Oximetry O2 Sat by Pulse Oximetry [ Assessment] 12/25/21 12/25/21 12/25/21 09:37 10:00 10:31 Temperature Pulse Rate 75 74 66 Respiratory 20 24 18 Rate Blood Pressure 108/60 101/63 101/63 O2 Sat by Pulse 97 100 99 Oximetry O2 Sat by Pulse 100 Oximetry [ Assessment] 12/25/21 12/25/21 12/25/21 11:00 11:31 12:00 Temperature Pulse Rate 65 83 86 Respiratory 21 29 H Rate Blood Pressure 82/46 104/57 O2 Sat by Pulse 98 98 Oximetry O2 Sat by Pulse Oximetry [ Assessment] 12/25/21 12/25/21 12:01 12:04 Temperature 97.9 F Pulse Rate 92 H Respiratory 43 H Rate Blood Pressure 105/56 O2 Sat by Pulse 94 Oximetry O2 Sat by Pulse Oximetry [ Assessment] Constitutional: alert, appears uncomfortable, other (trach to MVS, frail elderly woman with mildly increased respiratory effort at rest) Eyes: non-icteric ENT: oropharynx moist, other (+ Midline tracheostomy with minimal secretions) Neck: supple, no lymphadenopathy, no JVD Effort: mildly labored Ascultation: Bilateral: diminished breath sounds, rhonchi Percussion: Bilateral: not dull Cardiovascular: regular rate and rhythm, other (S1,S2) Gastrointestinal: normoactive bowel sounds, soft, non-tender, non-distended (protuberant) Integumentary: normal Extremities: no cyanosis, pink and warm, pulses normal, edema (upper etremities) Neurologic: normal mental status, non-focal exam (grossly), pupils equal and round, motor strength normal and Psychiatric: anxious CBC and BMP: 12/26/21 07:51 12/26/21 07:51 ABG, PT/INR, D-dimer: ABG ABG pH 7.479 pH Units (7.350-7.450) H 12/16/21 20:52 ABG pCO2 37.5 mm Hg 12/16/21 20:52 ABG pO2 79.3 mm Hg (80.0-90.0) L 12/16/21 20:52 ABG O2 Saturation 97.0 % (95.0-99.0) 12/16/21 20:52 PT/INR, D-dimer PT 16.9 Sec. (12.2-14.9) H 11/26/21 05:00 INR 1.24 (0.87-1.13) H 11/26/21 05:00 D-Dimer 2655.00 ng/mlDDU (0-234) H 11/11/21 04:28 Abnormal lab findings: Abnormal Labs 11/03/21 11/03/21 11/03/21 22:32 22:32 22:32 WBC 29.3 H RBC 2.93 L Hgb 6.1 L Hct 21.9 L MCV 75 L MCH 21 L MCHC 28 L RDW 19.7 H Plt Count Seg Neuts % (Manual) 97.0 H Lymphocytes % (Manual) 3.0 L Seg Neutrophils # Man 28.4 H Lymphocytes # (Manual) 0.9 L Monocytes # (Manual) PT 18.6 H INR 1.40 H D-Dimer ABG pH ABG pO2 ABG HCO3 ABG O2 Saturation ABG Base Excess ABG Hemoglobin Oxyhemoglobin Sodium Potassium Chloride Carbon Dioxide 20 L BUN 33 H Creatinine Glucose 119 H POC Glucose Lactic Acid Calcium 8.3 L Phosphorus Magnesium AST ALT Alkaline Phosphatase Lactate Dehydrogenase Troponin T 0.035 H C-Reactive Protein NT-Pro-B Natriuret Pep Total Protein Albumin LDL Cholesterol Direct 34 L Vitamin B12 Crossmatch 11/03/21 11/03/21 11/03/21 22:32 22:32 23:57 WBC RBC Hgb Hct MCV MCH MCHC RDW Plt Count Seg Neuts % (Manual) Lymphocytes % (Manual) Seg Neutrophils # Man Lymphocytes # (Manual) Monocytes # (Manual) PT INR D-Dimer ABG pH ABG pO2 ABG HCO3 ABG O2 Saturation ABG Base Excess ABG Hemoglobin Oxyhemoglobin Sodium Potassium Chloride Carbon Dioxide BUN Creatinine Glucose POC Glucose Lactic Acid 3.70 H* Calcium Phosphorus Magnesium AST ALT Alkaline Phosphatase 139 H Lactate Dehydrogenase Troponin T C-Reactive Protein NT-Pro-B Natriuret Pep 7895 H Total Protein Albumin 3.5 L LDL Cholesterol Direct Vitamin B12 Crossmatch See Detail 11/04/21 11/04/21 11/05/21 00:59 13:58 00:51 WBC 27.9 H RBC 3.28 L Hgb 7.3 L Hct 25.5 L MCV 78 L MCH 22 L MCHC 29 L RDW 19.1 H Plt Count Seg Neuts % (Manual) 96.0 H Lymphocytes % (Manual) 2.0 L Seg Neutrophils # Man 26.8 H Lymphocytes # (Manual) 0.6 L Monocytes # (Manual) PT INR D-Dimer ABG pH ABG pO2 ABG HCO3 ABG O2 Saturation ABG Base Excess ABG Hemoglobin Oxyhemoglobin Sodium Potassium Chloride Carbon Dioxide BUN Creatinine Glucose POC Glucose Lactic Acid Calcium Phosphorus Magnesium AST ALT Alkaline Phosphatase Lactate Dehydrogenase Troponin T 0.051 H D 0.032 H D C-Reactive Protein NT-Pro-B Natriuret Pep Total Protein Albumin LDL Cholesterol Direct Vitamin B12 Crossmatch 11/05/21 11/05/21 11/05/21 06:11 06:11 06:11 WBC 31.8 H RBC 3.57 L Hgb 8.0 L Hct 27.7 L MCV 78 L MCH 22 L MCHC 29 L RDW 19.2 H Plt Count Seg Neuts % (Manual) 91.0 H Lymphocytes % (Manual) 4.5 L Seg Neutrophils # Man 28.9 H Lymphocytes # (Manual) Monocytes # (Manual) 1.1 H PT INR D-Dimer 1494.53 H ABG pH ABG pO2 ABG HCO3 ABG O2 Saturation ABG Base Excess ABG Hemoglobin Oxyhemoglobin Sodium Potassium Chloride Carbon Dioxide 19 L BUN 42 H Creatinine Glucose 115 H POC Glucose Lactic Acid Calcium Phosphorus Magnesium AST 43 H ALT Alkaline Phosphatase Lactate Dehydrogenase 187 H Troponin T C-Reactive Protein 22.20 H NT-Pro-B Natriuret Pep Total Protein 6.0 L Albumin 3.2 L LDL Cholesterol Direct Vitamin B12 Crossmatch 11/05/21 11/05/21 11/06/21 06:11 12:15 00:30 WBC RBC Hgb Hct MCV MCH MCHC RDW Plt Count Seg Neuts % (Manual) Lymphocytes % (Manual) Seg Neutrophils # Man Lymphocytes # (Manual) Monocytes # (Manual) PT INR D-Dimer ABG pH ABG pO2 ABG HCO3 ABG O2 Saturation ABG Base Excess ABG Hemoglobin Oxyhemoglobin Sodium Potassium Chloride Carbon Dioxide BUN Creatinine Glucose POC Glucose 113 H 69 L Lactic Acid Calcium Phosphorus Magnesium AST ALT Alkaline Phosphatase Lactate Dehydrogenase Troponin T 0.033 H C-Reactive Protein NT-Pro-B Natriuret Pep Total Protein Albumin LDL Cholesterol Direct Vitamin B12 Crossmatch 11/06/21 11/06/21 11/06/21 05:50 15:50 15:50 WBC 25.5 H RBC 3.62 L Hgb 8.0 L Hct 27.5 L MCV 76 L MCH 22 L MCHC 29 L RDW 19.6 H Plt Count Seg Neuts % (Manual) 92.0 H Lymphocytes % (Manual) 5.0 L Seg Neutrophils # Man 23.5 H Lymphocytes # (Manual) Monocytes # (Manual) PT INR D-Dimer ABG pH 7.305 L ABG pO2 ABG HCO3 15.8 L ABG O2 Saturation ABG Base Excess -9.6 L ABG Hemoglobin 8.6 L Oxyhemoglobin 94.6 L Sodium Potassium Chloride 113.9 H Carbon Dioxide 17 L BUN 56 H Creatinine Glucose 114 H POC Glucose Lactic Acid Calcium 7.9 L Phosphorus Magnesium AST 1410 H ALT 934 H Alkaline Phosphatase 142 H Lactate Dehydrogenase Troponin T C-Reactive Protein NT-Pro-B Natriuret Pep Total Protein 5.0 L Albumin 2.6 L LDL Cholesterol Direct Vitamin B12 Crossmatch 11/07/21 11/07/21 11/07/21 03:30 04:50 08:07 WBC RBC Hgb Hct MCV MCH MCHC RDW Plt Count Seg Neuts % (Manual) Lymphocytes % (Manual) Seg Neutrophils # Man Lymphocytes # (Manual) Monocytes # (Manual) PT INR D-Dimer ABG pH ABG pO2 296.9 H ABG HCO3 18.1 L ABG O2 Saturation 99.5 H ABG Base Excess -5.9 L ABG Hemoglobin 7.6 L Oxyhemoglobin Sodium Potassium Chloride Carbon Dioxide BUN Creatinine Glucose POC Glucose 106 H 108 H Lactic Acid Calcium Phosphorus Magnesium AST ALT Alkaline Phosphatase Lactate Dehydrogenase Troponin T C-Reactive Protein NT-Pro-B Natriuret Pep Total Protein Albumin LDL Cholesterol Direct Vitamin B12 Crossmatch 11/08/21 11/08/21 11/08/21 03:10 18:05 23:43 WBC RBC Hgb Hct MCV MCH MCHC RDW Plt Count Seg Neuts % (Manual) Lymphocytes % (Manual) Seg Neutrophils # Man Lymphocytes # (Manual) Monocytes # (Manual) PT INR D-Dimer ABG pH ABG pO2 127.4 H ABG HCO3 ABG O2 Saturation ABG Base Excess -3.4 L ABG Hemoglobin 7.4 L Oxyhemoglobin Sodium Potassium Chloride Carbon Dioxide BUN Creatinine Glucose POC Glucose 113 H 141 H Lactic Acid Calcium Phosphorus Magnesium AST ALT Alkaline Phosphatase Lactate Dehydrogenase Troponin T C-Reactive Protein NT-Pro-B Natriuret Pep Total Protein Albumin LDL Cholesterol Direct Vitamin B12 Crossmatch 11/08/21 11/08/21 11/09/21 Unknown Unknown 02:00 WBC 14.5 H RBC 3.35 L Hgb 7.5 L 8.1 L Hct 25.4 L 27.6 L MCV 76 L 76 L MCH 23 L 22 L MCHC RDW 19.9 H 19.9 H Plt Count Seg Neuts % (Manual) Lymphocytes % (Manual) Seg Neutrophils # Man Lymphocytes # (Manual) Monocytes # (Manual) PT INR D-Dimer ABG pH ABG pO2 ABG HCO3 ABG O2 Saturation ABG Base Excess ABG Hemoglobin Oxyhemoglobin Sodium 154 H D Potassium 3.3 L Chloride 120.7 H Carbon Dioxide 20 L BUN 38 H Creatinine Glucose POC Glucose Lactic Acid Calcium 8.3 L Phosphorus Magnesium AST ALT Alkaline Phosphatase Lactate Dehydrogenase Troponin T C-Reactive Protein NT-Pro-B Natriuret Pep Total Protein Albumin LDL Cholesterol Direct Vitamin B12 Crossmatch 11/09/21 11/09/21 11/09/21 02:00 02:31 05:12 WBC RBC Hgb Hct MCV MCH MCHC RDW Plt Count Seg Neuts % (Manual) Lymphocytes % (Manual) Seg Neutrophils # Man Lymphocytes # (Manual) Monocytes # (Manual) PT INR D-Dimer ABG pH 7.479 H ABG pO2 121.3 H ABG HCO3 ABG O2 Saturation ABG Base Excess ABG Hemoglobin 7.3 L Oxyhemoglobin Sodium Potassium Chloride 112.5 H Carbon Dioxide BUN 33 H Creatinine Glucose 161 H POC Glucose 135 H Lactic Acid Calcium Phosphorus Magnesium AST 251 H ALT 481 H Alkaline Phosphatase Lactate Dehydrogenase Troponin T C-Reactive Protein NT-Pro-B Natriuret Pep Total Protein 5.0 L Albumin 2.8 L LDL Cholesterol Direct Vitamin B12 Crossmatch 11/09/21 11/09/21 11/09/21 11:33 16:32 23:28 WBC RBC Hgb Hct MCV MCH MCHC RDW Plt Count Seg Neuts % (Manual) Lymphocytes % (Manual) Seg Neutrophils # Man Lymphocytes # (Manual) Monocytes # (Manual) PT INR D-Dimer ABG pH ABG pO2 ABG HCO3 ABG O2 Saturation ABG Base Excess ABG Hemoglobin Oxyhemoglobin Sodium Potassium Chloride Carbon Dioxide BUN Creatinine Glucose POC Glucose 132 H 133 H 143 H Lactic Acid Calcium Phosphorus Magnesium AST ALT Alkaline Phosphatase Lactate Dehydrogenase Troponin T C-Reactive Protein NT-Pro-B Natriuret Pep Total Protein Albumin LDL Cholesterol Direct Vitamin B12 Crossmatch 11/10/21 11/10/21 11/10/21 04:00 04:00 05:35 WBC 16.0 H RBC 3.61 L Hgb 8.0 L Hct 27.1 L MCV 75 L MCH 22 L MCHC RDW 20.4 H Plt Count Seg Neuts % (Manual) Lymphocytes % (Manual) Seg Neutrophils # Man Lymphocytes # (Manual) Monocytes # (Manual) PT INR D-Dimer ABG pH ABG pO2 ABG HCO3 ABG O2 Saturation ABG Base Excess ABG Hemoglobin Oxyhemoglobin Sodium 149 H Potassium Chloride 114.1 H Carbon Dioxide BUN 31 H Creatinine Glucose 148 H POC Glucose 132 H Lactic Acid Calcium 8.2 L Phosphorus Magnesium AST ALT Alkaline Phosphatase Lactate Dehydrogenase Troponin T C-Reactive Protein NT-Pro-B Natriuret Pep Total Protein Albumin LDL Cholesterol Direct Vitamin B12 Crossmatch 11/10/21 11/10/21 11/10/21 11:31 14:08 15:35 WBC RBC Hgb Hct MCV MCH MCHC RDW Plt Count Seg Neuts % (Manual) Lymphocytes % (Manual) Seg Neutrophils # Man Lymphocytes # (Manual) Monocytes # (Manual) PT INR D-Dimer ABG pH ABG pO2 126.6 H ABG HCO3 ABG O2 Saturation ABG Base Excess ABG Hemoglobin 7.4 L Oxyhemoglobin Sodium Potassium Chloride Carbon Dioxide BUN Creatinine Glucose POC Glucose 147 H Lactic Acid Calcium Phosphorus Magnesium AST ALT Alkaline Phosphatase Lactate Dehydrogenase Troponin T C-Reactive Protein NT-Pro-B Natriuret Pep Total Protein Albumin LDL Cholesterol Direct Vitamin B12 1823 H Crossmatch 11/10/21 11/11/21 11/11/21 17:53 00:55 04:28 WBC RBC Hgb Hct MCV MCH MCHC RDW Plt Count Seg Neuts % (Manual) Lymphocytes % (Manual) Seg Neutrophils # Man Lymphocytes # (Manual) Monocytes # (Manual) PT INR D-Dimer ABG pH ABG pO2 ABG HCO3 ABG O2 Saturation ABG Base Excess ABG Hemoglobin Oxyhemoglobin Sodium 149 H Potassium Chloride 112.2 H Carbon Dioxide BUN 34 H Creatinine Glucose 148 H POC Glucose 140 H 145 H Lactic Acid Calcium 7.9 L Phosphorus Magnesium AST 53 H ALT 203 H Alkaline Phosphatase Lactate Dehydrogenase Troponin T C-Reactive Protein NT-Pro-B Natriuret Pep Total Protein 4.9 L Albumin 2.6 L LDL Cholesterol Direct Vitamin B12 Crossmatch 11/11/21 11/11/21 11/11/21 04:28 04:28 05:28 WBC 20.9 H RBC 3.47 L Hgb 7.5 L Hct 26.0 L MCV 75 L MCH 22 L MCHC 29 L RDW 21.6 H Plt Count 132 L Seg Neuts % (Manual) Lymphocytes % (Manual) Seg Neutrophils # Man Lymphocytes # (Manual) Monocytes # (Manual) PT INR D-Dimer 2655.00 H ABG pH ABG pO2 ABG HCO3 ABG O2 Saturation ABG Base Excess ABG Hemoglobin Oxyhemoglobin Sodium Potassium Chloride Carbon Dioxide BUN Creatinine Glucose POC Glucose 154 H Lactic Acid Calcium Phosphorus Magnesium AST ALT Alkaline Phosphatase Lactate Dehydrogenase Troponin T C-Reactive Protein NT-Pro-B Natriuret Pep Total Protein Albumin LDL Cholesterol Direct Vitamin B12 Crossmatch 11/11/21 11/11/21 11/12/21 12:38 18:13 00:14 WBC RBC Hgb Hct MCV MCH MCHC RDW Plt Count Seg Neuts % (Manual) Lymphocytes % (Manual) Seg Neutrophils # Man Lymphocytes # (Manual) Monocytes # (Manual) PT INR D-Dimer ABG pH ABG pO2 ABG HCO3 ABG O2 Saturation ABG Base Excess ABG Hemoglobin Oxyhemoglobin Sodium Potassium Chloride Carbon Dioxide BUN Creatinine Glucose POC Glucose 137 H 108 H 137 H Lactic Acid Calcium Phosphorus Magnesium AST ALT Alkaline Phosphatase Lactate Dehydrogenase Troponin T C-Reactive Protein NT-Pro-B Natriuret Pep Total Protein Albumin LDL Cholesterol Direct Vitamin B12 Crossmatch 11/12/21 11/12/21 11/12/21 05:40 06:24 11:12 WBC RBC Hgb Hct MCV MCH MCHC RDW Plt Count Seg Neuts % (Manual) Lymphocytes % (Manual) Seg Neutrophils # Man Lymphocytes # (Manual) Monocytes # (Manual) PT INR D-Dimer ABG pH 7.586 H ABG pO2 150.6 H ABG HCO3 27.2 H ABG O2 Saturation 99.1 H ABG Base Excess 5.2 H ABG Hemoglobin 7.5 L Oxyhemoglobin Sodium Potassium Chloride Carbon Dioxide BUN Creatinine Glucose POC Glucose 132 H 140 H Lactic Acid Calcium Phosphorus Magnesium AST ALT Alkaline Phosphatase Lactate Dehydrogenase Troponin T C-Reactive Protein NT-Pro-B Natriuret Pep Total Protein Albumin LDL Cholesterol Direct Vitamin B12 Crossmatch 11/12/21 11/12/21 11/12/21 14:50 14:50 17:13 WBC 19.8 H RBC 3.27 L Hgb 7.1 L Hct 24.5 L MCV 75 L MCH 22 L MCHC 29 L RDW 22.3 H Plt Count Seg Neuts % (Manual) Lymphocytes % (Manual) Seg Neutrophils # Man Lymphocytes # (Manual) Monocytes # (Manual) PT INR D-Dimer ABG pH ABG pO2 ABG HCO3 ABG O2 Saturation ABG Base Excess ABG Hemoglobin Oxyhemoglobin Sodium 150 H Potassium 3.3 L Chloride 112.0 H Carbon Dioxide BUN 40 H Creatinine Glucose 151 H POC Glucose 121 H Lactic Acid Calcium 7.4 L Phosphorus 1.70 L Magnesium 1.40 L AST ALT Alkaline Phosphatase Lactate Dehydrogenase Troponin T C-Reactive Protein NT-Pro-B Natriuret Pep Total Protein Albumin LDL Cholesterol Direct Vitamin B12 Crossmatch 11/12/21 11/13/21 11/13/21 23:19 05:34 06:30 WBC RBC Hgb Hct MCV MCH MCHC RDW Plt Count Seg Neuts % (Manual) Lymphocytes % (Manual) Seg Neutrophils # Man Lymphocytes # (Manual) Monocytes # (Manual) PT INR D-Dimer ABG pH ABG pO2 ABG HCO3 ABG O2 Saturation ABG Base Excess ABG Hemoglobin Oxyhemoglobin Sodium 149 H Potassium Chloride 60.0 L Carbon Dioxide BUN 40 H Creatinine Glucose 146 H POC Glucose 113 H 132 H Lactic Acid Calcium 7.3 L Phosphorus Magnesium 2.40 H AST ALT 72 H Alkaline Phosphatase Lactate Dehydrogenase Troponin T C-Reactive Protein NT-Pro-B Natriuret Pep Total Protein 5.2 L Albumin 2.2 L LDL Cholesterol Direct Vitamin B12 Crossmatch 11/13/21 11/13/21 11/13/21 06:30 08:30 11:19 WBC 21.2 H RBC 3.12 L Hgb 6.8 L Hct 23.2 L MCV 74 L MCH 22 L MCHC 29 L RDW 22.2 H Plt Count 135 L Seg Neuts % (Manual) Lymphocytes % (Manual) Seg Neutrophils # Man Lymphocytes # (Manual) Monocytes # (Manual) PT INR D-Dimer ABG pH ABG pO2 ABG HCO3 ABG O2 Saturation ABG Base Excess ABG Hemoglobin Oxyhemoglobin Sodium Potassium Chloride Carbon Dioxide BUN Creatinine Glucose POC Glucose 136 H Lactic Acid Calcium Phosphorus Magnesium AST ALT Alkaline Phosphatase Lactate Dehydrogenase Troponin T C-Reactive Protein NT-Pro-B Natriuret Pep Total Protein Albumin LDL Cholesterol Direct Vitamin B12 Crossmatch See Detail 11/13/21 11/14/21 11/14/21 18:21 00:01 04:46 WBC 20.0 H RBC 3.41 L Hgb 7.9 L Hct 26.8 L MCV MCH 23 L MCHC 29 L RDW 24.0 H Plt Count Seg Neuts % (Manual) Lymphocytes % (Manual) Seg Neutrophils # Man Lymphocytes # (Manual) Monocytes # (Manual) PT INR D-Dimer ABG pH ABG pO2 ABG HCO3 ABG O2 Saturation ABG Base Excess ABG Hemoglobin Oxyhemoglobin Sodium Potassium Chloride Carbon Dioxide BUN Creatinine Glucose POC Glucose 149 H 141 H Lactic Acid Calcium Phosphorus Magnesium AST ALT Alkaline Phosphatase Lactate Dehydrogenase Troponin T C-Reactive Protein NT-Pro-B Natriuret Pep Total Protein Albumin LDL Cholesterol Direct Vitamin B12 Crossmatch 11/14/21 11/14/21 11/14/21 04:46 05:10 11:10 WBC RBC Hgb Hct MCV MCH MCHC RDW Plt Count Seg Neuts % (Manual) Lymphocytes % (Manual) Seg Neutrophils # Man Lymphocytes # (Manual) Monocytes # (Manual) PT INR D-Dimer ABG pH ABG pO2 ABG HCO3 ABG O2 Saturation ABG Base Excess ABG Hemoglobin Oxyhemoglobin Sodium 148 H Potassium Chloride 113.1 H Carbon Dioxide BUN 43 H Creatinine Glucose 140 H POC Glucose 132 H 133 H Lactic Acid Calcium 7.5 L Phosphorus Magnesium AST ALT Alkaline Phosphatase Lactate Dehydrogenase Troponin T C-Reactive Protein NT-Pro-B Natriuret Pep Total Protein Albumin LDL Cholesterol Direct Vitamin B12 Crossmatch 11/14/21 11/14/21 11/14/21 16:14 17:48 23:23 WBC RBC Hgb Hct MCV MCH MCHC RDW Plt Count Seg Neuts % (Manual) Lymphocytes % (Manual) Seg Neutrophils # Man Lymphocytes # (Manual) Monocytes # (Manual) PT INR D-Dimer ABG pH ABG pO2 ABG HCO3 28.0 H ABG O2 Saturation ABG Base Excess 3.1 H ABG Hemoglobin 5.8 L Oxyhemoglobin 94.8 L Sodium Potassium Chloride Carbon Dioxide BUN Creatinine Glucose POC Glucose 130 H 136 H Lactic Acid Calcium Phosphorus Magnesium AST ALT Alkaline Phosphatase Lactate Dehydrogenase Troponin T C-Reactive Protein NT-Pro-B Natriuret Pep Total Protein Albumin LDL Cholesterol Direct Vitamin B12 Crossmatch 11/15/21 11/15/21 11/15/21 05:20 05:50 05:50 WBC 19.9 H RBC 3.50 L Hgb 8.2 L Hct 27.9 L MCV MCH 23 L MCHC 29 L RDW 24.9 H Plt Count Seg Neuts % (Manual) Lymphocytes % (Manual) Seg Neutrophils # Man Lymphocytes # (Manual) Monocytes # (Manual) PT INR D-Dimer ABG pH ABG pO2 ABG HCO3 ABG O2 Saturation ABG Base Excess ABG Hemoglobin Oxyhemoglobin Sodium 149 H Potassium Chloride 112.0 H Carbon Dioxide BUN 48 H Creatinine Glucose 152 H POC Glucose 137 H Lactic Acid Calcium 7.9 L Phosphorus Magnesium AST ALT Alkaline Phosphatase Lactate Dehydrogenase Troponin T C-Reactive Protein NT-Pro-B Natriuret Pep Total Protein Albumin LDL Cholesterol Direct Vitamin B12 Crossmatch 11/15/21 11/15/21 11/15/21 12:12 17:07 23:24 WBC RBC Hgb Hct MCV MCH MCHC RDW Plt Count Seg Neuts % (Manual) Lymphocytes % (Manual) Seg Neutrophils # Man Lymphocytes # (Manual) Monocytes # (Manual) PT INR D-Dimer ABG pH ABG pO2 ABG HCO3 ABG O2 Saturation ABG Base Excess ABG Hemoglobin Oxyhemoglobin Sodium Potassium Chloride Carbon Dioxide BUN Creatinine Glucose POC Glucose 114 H 135 H 123 H Lactic Acid Calcium Phosphorus Magnesium AST ALT Alkaline Phosphatase Lactate Dehydrogenase Troponin T C-Reactive Protein NT-Pro-B Natriuret Pep Total Protein Albumin LDL Cholesterol Direct Vitamin B12 Crossmatch 11/16/21 11/16/21 11/16/21 05:21 10:00 10:00 WBC 21.7 H RBC 2.57 L Hgb 6.0 L Hct 20.2 L D MCV MCH 24 L MCHC RDW 26.3 H Plt Count Seg Neuts % (Manual) Lymphocytes % (Manual) Seg Neutrophils # Man Lymphocytes # (Manual) Monocytes # (Manual) PT INR D-Dimer ABG pH ABG pO2 ABG HCO3 ABG O2 Saturation ABG Base Excess ABG Hemoglobin Oxyhemoglobin Sodium 153 H Potassium Chloride 114.9 H Carbon Dioxide BUN 74 H Creatinine Glucose 155 H POC Glucose 127 H Lactic Acid Calcium 8.1 L Phosphorus Magnesium AST ALT Alkaline Phosphatase Lactate Dehydrogenase Troponin T C-Reactive Protein NT-Pro-B Natriuret Pep Total Protein Albumin LDL Cholesterol Direct Vitamin B12 Crossmatch 11/16/21 11/16/21 11/16/21 11:34 14:00 15:25 WBC 17.2 H RBC 2.08 L Hgb 4.7 L* Hct 16.2 L* MCV 78 L MCH 23 L MCHC 29 L RDW 26.0 H Plt Count Seg Neuts % (Manual) 87.0 H Lymphocytes % (Manual) 8.0 L Seg Neutrophils # Man 15.0 H Lymphocytes # (Manual) Monocytes # (Manual) 0.9 H PT INR D-Dimer ABG pH ABG pO2 ABG HCO3 ABG O2 Saturation ABG Base Excess ABG Hemoglobin Oxyhemoglobin Sodium Potassium Chloride Carbon Dioxide BUN Creatinine Glucose POC Glucose 131 H Lactic Acid Calcium Phosphorus Magnesium AST ALT Alkaline Phosphatase Lactate Dehydrogenase Troponin T C-Reactive Protein NT-Pro-B Natriuret Pep Total Protein Albumin LDL Cholesterol Direct Vitamin B12 Crossmatch See Detail 11/16/21 11/16/21 11/16/21 15:25 17:21 22:43 WBC RBC Hgb 8.6 L D Hct 27.7 L D MCV MCH MCHC RDW Plt Count Seg Neuts % (Manual) Lymphocytes % (Manual) Seg Neutrophils # Man Lymphocytes # (Manual) Monocytes # (Manual) PT INR D-Dimer ABG pH ABG pO2 ABG HCO3 ABG O2 Saturation ABG Base Excess ABG Hemoglobin Oxyhemoglobin Sodium 148 H Potassium Chloride 113.2 H Carbon Dioxide BUN 84 H Creatinine Glucose 164 H POC Glucose 124 H Lactic Acid Calcium 7.6 L Phosphorus Magnesium AST ALT Alkaline Phosphatase Lactate Dehydrogenase Troponin T C-Reactive Protein NT-Pro-B Natriuret Pep Total Protein Albumin LDL Cholesterol Direct Vitamin B12 Crossmatch 11/16/21 11/17/21 11/17/21 23:07 05:33 05:56 WBC 25.1 H RBC 3.47 L Hgb 8.7 L Hct 28.5 L MCV MCH 25 L MCHC RDW 22.3 H Plt Count Seg Neuts % (Manual) Lymphocytes % (Manual) Seg Neutrophils # Man Lymphocytes # (Manual) Monocytes # (Manual) PT INR D-Dimer ABG pH ABG pO2 ABG HCO3 ABG O2 Saturation ABG Base Excess ABG Hemoglobin Oxyhemoglobin Sodium Potassium Chloride Carbon Dioxide BUN Creatinine Glucose POC Glucose 128 H 133 H Lactic Acid Calcium Phosphorus Magnesium AST ALT Alkaline Phosphatase Lactate Dehydrogenase Troponin T C-Reactive Protein NT-Pro-B Natriuret Pep Total Protein Albumin LDL Cholesterol Direct Vitamin B12 Crossmatch 11/17/21 11/17/21 11/17/21 05:56 11:00 11:55 WBC RBC Hgb 8.3 L Hct 26.9 L MCV MCH MCHC RDW Plt Count Seg Neuts % (Manual) Lymphocytes % (Manual) Seg Neutrophils # Man Lymphocytes # (Manual) Monocytes # (Manual) PT INR D-Dimer ABG pH ABG pO2 ABG HCO3 ABG O2 Saturation ABG Base Excess ABG Hemoglobin Oxyhemoglobin Sodium 151 H Potassium Chloride 113.6 H Carbon Dioxide BUN 85 H Creatinine Glucose 132 H POC Glucose 121 H Lactic Acid Calcium 7.8 L Phosphorus Magnesium AST ALT Alkaline Phosphatase Lactate Dehydrogenase Troponin T C-Reactive Protein NT-Pro-B Natriuret Pep Total Protein 5.1 L Albumin 2.2 L LDL Cholesterol Direct Vitamin B12 Crossmatch 11/17/21 11/17/21 11/18/21 18:04 18:55 00:26 WBC RBC Hgb 7.5 L 7.1 L Hct 24.8 L 23.6 L MCV MCH MCHC RDW Plt Count Seg Neuts % (Manual) Lymphocytes % (Manual) Seg Neutrophils # Man Lymphocytes # (Manual) Monocytes # (Manual) PT INR D-Dimer ABG pH ABG pO2 ABG HCO3 ABG O2 Saturation ABG Base Excess ABG Hemoglobin Oxyhemoglobin Sodium Potassium Chloride Carbon Dioxide BUN Creatinine Glucose POC Glucose 144 H Lactic Acid Calcium Phosphorus Magnesium AST ALT Alkaline Phosphatase Lactate Dehydrogenase Troponin T C-Reactive Protein NT-Pro-B Natriuret Pep Total Protein Albumin LDL Cholesterol Direct Vitamin B12 Crossmatch 11/18/21 11/18/21 11/18/21 00:43 05:10 05:10 WBC 12.5 H RBC 2.39 L Hgb 6.1 L Hct 20.2 L MCV MCH 25 L MCHC RDW 23.2 H Plt Count Seg Neuts % (Manual) Lymphocytes % (Manual) Seg Neutrophils # Man Lymphocytes # (Manual) Monocytes # (Manual) PT INR D-Dimer ABG pH ABG pO2 ABG HCO3 ABG O2 Saturation ABG Base Excess ABG Hemoglobin Oxyhemoglobin Sodium 131 L D Potassium 2.9 L* D Chloride 97.8 L Carbon Dioxide BUN 58 H Creatinine Glucose 665 H* POC Glucose 139 H Lactic Acid Calcium 7.0 L Phosphorus 2.20 L D Magnesium 1.50 L AST ALT Alkaline Phosphatase Lactate Dehydrogenase Troponin T C-Reactive Protein NT-Pro-B Natriuret Pep Total Protein Albumin LDL Cholesterol Direct Vitamin B12 Crossmatch 11/18/21 11/18/21 11/18/21 05:23 07:10 10:45 WBC RBC Hgb Hct MCV MCH MCHC RDW Plt Count Seg Neuts % (Manual) Lymphocytes % (Manual) Seg Neutrophils # Man Lymphocytes # (Manual) Monocytes # (Manual) PT INR D-Dimer ABG pH ABG pO2 ABG HCO3 ABG O2 Saturation ABG Base Excess ABG Hemoglobin Oxyhemoglobin Sodium 148 H D Potassium 3.1 L Chloride 111.9 H Carbon Dioxide BUN 63 H Creatinine Glucose 141 H POC Glucose 124 H Lactic Acid Calcium 8.1 L D Phosphorus Magnesium AST ALT Alkaline Phosphatase Lactate Dehydrogenase Troponin T C-Reactive Protein NT-Pro-B Natriuret Pep Total Protein Albumin LDL Cholesterol Direct Vitamin B12 Crossmatch See Detail 11/18/21 11/19/21 11/19/21 11:57 00:19 04:55 WBC RBC 3.35 L Hgb 9.0 L 8.9 L Hct 28.3 L D 28.1 L MCV MCH 27 L MCHC RDW 20.3 H Plt Count Seg Neuts % (Manual) Lymphocytes % (Manual) Seg Neutrophils # Man Lymphocytes # (Manual) Monocytes # (Manual) PT INR D-Dimer ABG pH ABG pO2 ABG HCO3 ABG O2 Saturation ABG Base Excess ABG Hemoglobin Oxyhemoglobin Sodium Potassium Chloride Carbon Dioxide BUN Creatinine Glucose POC Glucose 119 H Lactic Acid Calcium Phosphorus Magnesium AST ALT Alkaline Phosphatase Lactate Dehydrogenase Troponin T C-Reactive Protein NT-Pro-B Natriuret Pep Total Protein Albumin LDL Cholesterol Direct Vitamin B12 Crossmatch 11/19/21 11/19/21 11/20/21 04:55 05:42 00:55 WBC RBC Hgb 9.0 L Hct 28.6 L MCV MCH MCHC RDW Plt Count Seg Neuts % (Manual) Lymphocytes % (Manual) Seg Neutrophils # Man Lymphocytes # (Manual) Monocytes # (Manual) PT INR D-Dimer ABG pH ABG pO2 ABG HCO3 ABG O2 Saturation ABG Base Excess ABG Hemoglobin Oxyhemoglobin Sodium Potassium 3.5 L Chloride 108.6 H Carbon Dioxide BUN 47 H Creatinine Glucose 207 H POC Glucose 63 L Lactic Acid Calcium 7.1 L Phosphorus Magnesium AST ALT Alkaline Phosphatase Lactate Dehydrogenase Troponin T C-Reactive Protein NT-Pro-B Natriuret Pep Total Protein Albumin LDL Cholesterol Direct Vitamin B12 Crossmatch 11/20/21 11/20/21 11/20/21 05:40 05:40 Unknown WBC RBC 3.40 L Hgb 9.1 L Hct 28.8 L MCV MCH 27 L MCHC RDW 20.7 H Plt Count Seg Neuts % (Manual) Lymphocytes % (Manual) Seg Neutrophils # Man Lymphocytes # (Manual) Monocytes # (Manual) PT INR D-Dimer ABG pH ABG pO2 ABG HCO3 ABG O2 Saturation ABG Base Excess -2.7 L ABG Hemoglobin 9.5 L Oxyhemoglobin 94.3 L Sodium Potassium 3.5 L Chloride 108.9 H Carbon Dioxide BUN 37 H Creatinine Glucose 117 H POC Glucose Lactic Acid Calcium 7.5 L Phosphorus Magnesium AST ALT Alkaline Phosphatase Lactate Dehydrogenase Troponin T C-Reactive Protein NT-Pro-B Natriuret Pep Total Protein Albumin LDL Cholesterol Direct Vitamin B12 Crossmatch 11/21/21 11/21/21 11/21/21 04:30 04:30 16:00 WBC RBC 3.25 L Hgb 8.6 L Hct 28.1 L MCV MCH 26 L MCHC RDW 20.7 H Plt Count Seg Neuts % (Manual) Lymphocytes % (Manual) Seg Neutrophils # Man Lymphocytes # (Manual) Monocytes # (Manual) PT INR D-Dimer ABG pH ABG pO2 114.2 H ABG HCO3 ABG O2 Saturation ABG Base Excess ABG Hemoglobin 9.1 L Oxyhemoglobin Sodium 134 L Potassium Chloride Carbon Dioxide 20 L BUN 34 H Creatinine Glucose POC Glucose Lactic Acid Calcium 7.1 L Phosphorus Magnesium AST ALT Alkaline Phosphatase Lactate Dehydrogenase Troponin T C-Reactive Protein NT-Pro-B Natriuret Pep Total Protein Albumin LDL Cholesterol Direct Vitamin B12 Crossmatch 11/22/21 11/22/21 11/22/21 07:07 07:07 23:54 WBC RBC 3.30 L Hgb 9.0 L Hct 28.5 L MCV MCH 27 L MCHC RDW 21.0 H Plt Count Seg Neuts % (Manual) Lymphocytes % (Manual) Seg Neutrophils # Man Lymphocytes # (Manual) Monocytes # (Manual) PT INR D-Dimer ABG pH ABG pO2 ABG HCO3 ABG O2 Saturation ABG Base Excess ABG Hemoglobin Oxyhemoglobin Sodium Potassium Chloride Carbon Dioxide BUN 32 H Creatinine Glucose 106 H POC Glucose 110 H Lactic Acid Calcium 7.5 L Phosphorus Magnesium AST ALT Alkaline Phosphatase Lactate Dehydrogenase Troponin T C-Reactive Protein NT-Pro-B Natriuret Pep Total Protein Albumin LDL Cholesterol Direct Vitamin B12 Crossmatch 11/23/21 11/23/21 11/23/21 04:38 04:38 06:01 WBC RBC 3.23 L Hgb 8.8 L Hct 28.0 L MCV MCH 27 L MCHC RDW 21.3 H Plt Count Seg Neuts % (Manual) Lymphocytes % (Manual) Seg Neutrophils # Man Lymphocytes # (Manual) Monocytes # (Manual) PT INR D-Dimer ABG pH ABG pO2 ABG HCO3 ABG O2 Saturation ABG Base Excess ABG Hemoglobin Oxyhemoglobin Sodium 136 L Potassium Chloride Carbon Dioxide 20 L BUN 32 H Creatinine Glucose 109 H POC Glucose 115 H Lactic Acid Calcium 7.7 L Phosphorus Magnesium AST ALT Alkaline Phosphatase Lactate Dehydrogenase Troponin T C-Reactive Protein NT-Pro-B Natriuret Pep Total Protein Albumin LDL Cholesterol Direct Vitamin B12 Crossmatch 11/23/21 11/24/21 11/24/21 11:40 00:03 04:13 WBC RBC 3.18 L Hgb 8.5 L Hct 27.5 L MCV MCH 27 L MCHC RDW 21.6 H Plt Count Seg Neuts % (Manual) Lymphocytes % (Manual) Seg Neutrophils # Man Lymphocytes # (Manual) Monocytes # (Manual) PT INR D-Dimer ABG pH ABG pO2 ABG HCO3 ABG O2 Saturation ABG Base Excess ABG Hemoglobin Oxyhemoglobin Sodium Potassium Chloride Carbon Dioxide BUN Creatinine Glucose POC Glucose 117 H 111 H Lactic Acid Calcium Phosphorus Magnesium AST ALT Alkaline Phosphatase Lactate Dehydrogenase Troponin T C-Reactive Protein NT-Pro-B Natriuret Pep Total Protein Albumin LDL Cholesterol Direct Vitamin B12 Crossmatch 11/24/21 11/24/21 11/24/21 04:13 05:30 11:10 WBC RBC Hgb Hct MCV MCH MCHC RDW Plt Count Seg Neuts % (Manual) Lymphocytes % (Manual) Seg Neutrophils # Man Lymphocytes # (Manual) Monocytes # (Manual) PT INR D-Dimer ABG pH ABG pO2 ABG HCO3 ABG O2 Saturation ABG Base Excess ABG Hemoglobin Oxyhemoglobin Sodium Potassium Chloride Carbon Dioxide BUN 31 H Creatinine Glucose 101 H POC Glucose 115 H 107 H Lactic Acid Calcium 7.7 L Phosphorus Magnesium AST ALT Alkaline Phosphatase Lactate Dehydrogenase Troponin T C-Reactive Protein NT-Pro-B Natriuret Pep Total Protein Albumin LDL Cholesterol Direct Vitamin B12 Crossmatch 11/24/21 11/24/21 11/25/21 16:34 17:57 05:12 WBC RBC 3.11 L Hgb 8.2 L Hct 26.6 L MCV MCH 26 L MCHC RDW 21.3 H Plt Count Seg Neuts % (Manual) Lymphocytes % (Manual) Seg Neutrophils # Man Lymphocytes # (Manual) Monocytes # (Manual) PT INR D-Dimer ABG pH ABG pO2 ABG HCO3 ABG O2 Saturation ABG Base Excess ABG Hemoglobin Oxyhemoglobin Sodium Potassium Chloride Carbon Dioxide BUN Creatinine Glucose POC Glucose 115 H 110 H Lactic Acid Calcium Phosphorus Magnesium AST ALT Alkaline Phosphatase Lactate Dehydrogenase Troponin T C-Reactive Protein NT-Pro-B Natriuret Pep Total Protein Albumin LDL Cholesterol Direct Vitamin B12 Crossmatch 11/25/21 11/25/21 11/26/21 05:12 11:20 05:00 WBC RBC 3.30 L Hgb 8.8 L Hct 28.2 L MCV MCH 27 L MCHC RDW 20.7 H Plt Count Seg Neuts % (Manual) Lymphocytes % (Manual) Seg Neutrophils # Man Lymphocytes # (Manual) Monocytes # (Manual) PT INR D-Dimer ABG pH ABG pO2 ABG HCO3 ABG O2 Saturation ABG Base Excess ABG Hemoglobin Oxyhemoglobin Sodium Potassium Chloride Carbon Dioxide BUN 32 H Creatinine Glucose 118 H POC Glucose 118 H Lactic Acid Calcium 8.2 L Phosphorus Magnesium AST ALT Alkaline Phosphatase Lactate Dehydrogenase Troponin T C-Reactive Protein NT-Pro-B Natriuret Pep Total Protein Albumin LDL Cholesterol Direct Vitamin B12 Crossmatch 11/26/21 11/26/21 11/26/21 05:00 05:00 05:44 WBC RBC Hgb Hct MCV MCH MCHC RDW Plt Count Seg Neuts % (Manual) Lymphocytes % (Manual) Seg Neutrophils # Man Lymphocytes # (Manual) Monocytes # (Manual) PT 16.9 H INR 1.24 H D-Dimer ABG pH ABG pO2 ABG HCO3 ABG O2 Saturation ABG Base Excess ABG Hemoglobin Oxyhemoglobin Sodium Potassium Chloride Carbon Dioxide BUN 31 H Creatinine Glucose 104 H POC Glucose 110 H Lactic Acid Calcium 7.9 L Phosphorus Magnesium AST ALT Alkaline Phosphatase Lactate Dehydrogenase Troponin T C-Reactive Protein NT-Pro-B Natriuret Pep Total Protein Albumin LDL Cholesterol Direct Vitamin B12 Crossmatch 11/26/21 11/27/21 11/27/21 23:55 07:40 07:40 WBC RBC 3.18 L Hgb 8.5 L Hct 27.0 L MCV MCH 27 L MCHC RDW 21.2 H Plt Count Seg Neuts % (Manual) Lymphocytes % (Manual) Seg Neutrophils # Man Lymphocytes # (Manual) Monocytes # (Manual) PT INR D-Dimer ABG pH ABG pO2 ABG HCO3 ABG O2 Saturation ABG Base Excess ABG Hemoglobin Oxyhemoglobin Sodium Potassium Chloride Carbon Dioxide BUN 27 H Creatinine Glucose 112 H POC Glucose 63 L Lactic Acid Calcium 7.6 L Phosphorus Magnesium AST ALT Alkaline Phosphatase Lactate Dehydrogenase Troponin T C-Reactive Protein NT-Pro-B Natriuret Pep Total Protein Albumin LDL Cholesterol Direct Vitamin B12 Crossmatch 11/27/21 11/27/21 11/27/21 12:04 13:40 13:40 WBC RBC 3.31 L Hgb 8.7 L Hct 28.0 L MCV MCH 26 L MCHC RDW 20.7 H Plt Count Seg Neuts % (Manual) Lymphocytes % (Manual) Seg Neutrophils # Man Lymphocytes # (Manual) Monocytes # (Manual) PT INR D-Dimer ABG pH ABG pO2 ABG HCO3 ABG O2 Saturation ABG Base Excess ABG Hemoglobin Oxyhemoglobin Sodium 136 L Potassium Chloride Carbon Dioxide BUN 25 H Creatinine Glucose 127 H POC Glucose 109 H Lactic Acid Calcium 7.6 L Phosphorus Magnesium 1.40 L AST ALT Alkaline Phosphatase Lactate Dehydrogenase Troponin T C-Reactive Protein NT-Pro-B Natriuret Pep Total Protein Albumin LDL Cholesterol Direct Vitamin B12 Crossmatch 11/27/21 11/27/21 11/28/21 17:44 23:33 12:20 WBC RBC Hgb Hct MCV MCH MCHC RDW Plt Count Seg Neuts % (Manual) Lymphocytes % (Manual) Seg Neutrophils # Man Lymphocytes # (Manual) Monocytes # (Manual) PT INR D-Dimer ABG pH ABG pO2 ABG HCO3 ABG O2 Saturation ABG Base Excess ABG Hemoglobin Oxyhemoglobin Sodium Potassium Chloride Carbon Dioxide BUN Creatinine Glucose POC Glucose 107 H 108 H 114 H Lactic Acid Calcium Phosphorus Magnesium AST ALT Alkaline Phosphatase Lactate Dehydrogenase Troponin T C-Reactive Protein NT-Pro-B Natriuret Pep Total Protein Albumin LDL Cholesterol Direct Vitamin B12 Crossmatch 11/29/21 11/29/21 11/29/21 00:09 03:20 03:20 WBC RBC 3.05 L Hgb 8.2 L Hct 25.8 L MCV MCH 27 L MCHC RDW 20.9 H Plt Count Seg Neuts % (Manual) Lymphocytes % (Manual) Seg Neutrophils # Man Lymphocytes # (Manual) Monocytes # (Manual) PT INR D-Dimer ABG pH ABG pO2 ABG HCO3 ABG O2 Saturation ABG Base Excess ABG Hemoglobin Oxyhemoglobin Sodium 133 L Potassium Chloride Carbon Dioxide BUN 24 H Creatinine Glucose 137 H POC Glucose 134 H Lactic Acid Calcium 7.4 L Phosphorus Magnesium AST ALT Alkaline Phosphatase Lactate Dehydrogenase Troponin T C-Reactive Protein NT-Pro-B Natriuret Pep Total Protein Albumin LDL Cholesterol Direct Vitamin B12 Crossmatch 11/29/21 11/29/21 11/29/21 05:38 11:39 17:11 WBC RBC Hgb Hct MCV MCH MCHC RDW Plt Count Seg Neuts % (Manual) Lymphocytes % (Manual) Seg Neutrophils # Man Lymphocytes # (Manual) Monocytes # (Manual) PT INR D-Dimer ABG pH ABG pO2 ABG HCO3 ABG O2 Saturation ABG Base Excess ABG Hemoglobin Oxyhemoglobin Sodium Potassium Chloride Carbon Dioxide BUN Creatinine Glucose POC Glucose 117 H 143 H 124 H Lactic Acid Calcium Phosphorus Magnesium AST ALT Alkaline Phosphatase Lactate Dehydrogenase Troponin T C-Reactive Protein NT-Pro-B Natriuret Pep Total Protein Albumin LDL Cholesterol Direct Vitamin B12 Crossmatch 11/29/21 11/30/21 11/30/21 20:15 05:40 05:40 WBC 12.6 H RBC 3.41 L Hgb 9.1 L Hct 28.9 L MCV MCH 27 L MCHC RDW 20.4 H Plt Count Seg Neuts % (Manual) Lymphocytes % (Manual) Seg Neutrophils # Man Lymphocytes # (Manual) Monocytes # (Manual) PT INR D-Dimer ABG pH ABG pO2 ABG HCO3 ABG O2 Saturation ABG Base Excess ABG Hemoglobin Oxyhemoglobin Sodium Potassium Chloride Carbon Dioxide BUN 24 H Creatinine Glucose 131 H POC Glucose Lactic Acid Calcium 7.6 L Phosphorus Magnesium AST ALT Alkaline Phosphatase Lactate Dehydrogenase Troponin T 0.045 H C-Reactive Protein NT-Pro-B Natriuret Pep Total Protein Albumin LDL Cholesterol Direct 25 L Vitamin B12 Crossmatch 11/30/21 11/30/21 12/01/21 11:29 16:51 05:00 WBC RBC 2.97 L Hgb 8.0 L Hct 25.0 L MCV MCH 27 L MCHC RDW 20.8 H Plt Count Seg Neuts % (Manual) Lymphocytes % (Manual) Seg Neutrophils # Man Lymphocytes # (Manual) Monocytes # (Manual) PT INR D-Dimer ABG pH ABG pO2 ABG HCO3 ABG O2 Saturation ABG Base Excess ABG Hemoglobin Oxyhemoglobin Sodium Potassium Chloride Carbon Dioxide BUN Creatinine Glucose POC Glucose 123 H 114 H Lactic Acid Calcium Phosphorus Magnesium AST ALT Alkaline Phosphatase Lactate Dehydrogenase Troponin T C-Reactive Protein NT-Pro-B Natriuret Pep Total Protein Albumin LDL Cholesterol Direct Vitamin B12 Crossmatch 12/01/21 12/01/21 12/01/21 05:00 05:25 11:54 WBC RBC Hgb Hct MCV MCH MCHC RDW Plt Count Seg Neuts % (Manual) Lymphocytes % (Manual) Seg Neutrophils # Man Lymphocytes # (Manual) Monocytes # (Manual) PT INR D-Dimer ABG pH ABG pO2 ABG HCO3 ABG O2 Saturation ABG Base Excess ABG Hemoglobin Oxyhemoglobin Sodium 136 L Potassium Chloride Carbon Dioxide BUN 24 H Creatinine Glucose 117 H POC Glucose 108 H 107 H Lactic Acid Calcium 7.5 L Phosphorus Magnesium 1.60 L AST ALT Alkaline Phosphatase Lactate Dehydrogenase Troponin T C-Reactive Protein NT-Pro-B Natriuret Pep Total Protein Albumin LDL Cholesterol Direct Vitamin B12 Crossmatch 12/01/21 12/02/21 12/02/21 17:40 00:07 04:20 WBC RBC 2.92 L Hgb 7.7 L Hct 24.3 L MCV MCH 26 L MCHC RDW 20.5 H Plt Count Seg Neuts % (Manual) Lymphocytes % (Manual) Seg Neutrophils # Man Lymphocytes # (Manual) Monocytes # (Manual) PT INR D-Dimer ABG pH ABG pO2 ABG HCO3 ABG O2 Saturation ABG Base Excess ABG Hemoglobin Oxyhemoglobin Sodium Potassium Chloride Carbon Dioxide BUN Creatinine Glucose POC Glucose 123 H 110 H Lactic Acid Calcium Phosphorus Magnesium AST ALT Alkaline Phosphatase Lactate Dehydrogenase Troponin T C-Reactive Protein NT-Pro-B Natriuret Pep Total Protein Albumin LDL Cholesterol Direct Vitamin B12 Crossmatch 12/02/21 12/02/21 12/02/21 04:20 11:17 18:20 WBC RBC Hgb Hct MCV MCH MCHC RDW Plt Count Seg Neuts % (Manual) Lymphocytes % (Manual) Seg Neutrophils # Man Lymphocytes # (Manual) Monocytes # (Manual) PT INR D-Dimer ABG pH ABG pO2 ABG HCO3 ABG O2 Saturation ABG Base Excess ABG Hemoglobin Oxyhemoglobin Sodium 135 L Potassium Chloride Carbon Dioxide BUN 26 H Creatinine Glucose 121 H POC Glucose 117 H 113 H Lactic Acid Calcium 7.4 L Phosphorus Magnesium AST ALT Alkaline Phosphatase Lactate Dehydrogenase Troponin T C-Reactive Protein NT-Pro-B Natriuret Pep Total Protein Albumin LDL Cholesterol Direct Vitamin B12 Crossmatch 12/03/21 12/03/21 12/03/21 00:12 04:00 04:00 WBC RBC 2.99 L Hgb 7.8 L Hct 24.6 L MCV MCH 26 L MCHC RDW 20.2 H Plt Count Seg Neuts % (Manual) Lymphocytes % (Manual) Seg Neutrophils # Man Lymphocytes # (Manual) Monocytes # (Manual) PT INR D-Dimer ABG pH ABG pO2 ABG HCO3 ABG O2 Saturation ABG Base Excess ABG Hemoglobin Oxyhemoglobin Sodium 136 L Potassium Chloride Carbon Dioxide BUN 27 H Creatinine Glucose 133 H POC Glucose 121 H Lactic Acid Calcium 7.5 L Phosphorus Magnesium AST ALT Alkaline Phosphatase Lactate Dehydrogenase Troponin T C-Reactive Protein NT-Pro-B Natriuret Pep Total Protein Albumin LDL Cholesterol Direct Vitamin B12 Crossmatch 12/03/21 12/03/21 12/03/21 06:30 11:13 16:00 WBC RBC Hgb Hct MCV MCH MCHC RDW Plt Count Seg Neuts % (Manual) Lymphocytes % (Manual) Seg Neutrophils # Man Lymphocytes # (Manual) Monocytes # (Manual) PT INR D-Dimer ABG pH ABG pO2 ABG HCO3 ABG O2 Saturation ABG Base Excess ABG Hemoglobin Oxyhemoglobin Sodium Potassium Chloride Carbon Dioxide BUN Creatinine Glucose POC Glucose 129 H 125 H 125 H Lactic Acid Calcium Phosphorus Magnesium AST ALT Alkaline Phosphatase Lactate Dehydrogenase Troponin T C-Reactive Protein NT-Pro-B Natriuret Pep Total Protein Albumin LDL Cholesterol Direct Vitamin B12 Crossmatch 12/03/21 12/04/21 12/04/21 23:32 04:00 05:36 WBC RBC Hgb Hct MCV MCH MCHC RDW Plt Count Seg Neuts % (Manual) Lymphocytes % (Manual) Seg Neutrophils # Man Lymphocytes # (Manual) Monocytes # (Manual) PT INR D-Dimer ABG pH ABG pO2 ABG HCO3 ABG O2 Saturation ABG Base Excess ABG Hemoglobin Oxyhemoglobin Sodium Potassium 3.5 L Chloride Carbon Dioxide BUN 26 H Creatinine 0.5 L Glucose 151 H POC Glucose 133 H 142 H Lactic Acid Calcium 8.3 L Phosphorus Magnesium AST ALT Alkaline Phosphatase Lactate Dehydrogenase Troponin T C-Reactive Protein NT-Pro-B Natriuret Pep Total Protein Albumin LDL Cholesterol Direct Vitamin B12 Crossmatch 12/04/21 12/04/21 12/05/21 11:24 15:58 04:36 WBC RBC Hgb Hct MCV MCH MCHC RDW Plt Count Seg Neuts % (Manual) Lymphocytes % (Manual) Seg Neutrophils # Man Lymphocytes # (Manual) Monocytes # (Manual) PT INR D-Dimer ABG pH ABG pO2 ABG HCO3 ABG O2 Saturation ABG Base Excess ABG Hemoglobin Oxyhemoglobin Sodium Potassium Chloride Carbon Dioxide BUN 21 H Creatinine 0.5 L Glucose 119 H POC Glucose 130 H 111 H Lactic Acid Calcium 8.3 L Phosphorus Magnesium AST ALT Alkaline Phosphatase Lactate Dehydrogenase Troponin T C-Reactive Protein NT-Pro-B Natriuret Pep Total Protein Albumin LDL Cholesterol Direct Vitamin B12 Crossmatch 12/05/21 12/05/21 12/05/21 05:15 10:40 11:12 WBC RBC 2.98 L Hgb 8.1 L Hct 24.6 L MCV MCH 27 L MCHC RDW 20.8 H Plt Count Seg Neuts % (Manual) Lymphocytes % (Manual) Seg Neutrophils # Man Lymphocytes # (Manual) Monocytes # (Manual) PT INR D-Dimer ABG pH ABG pO2 ABG HCO3 ABG O2 Saturation ABG Base Excess ABG Hemoglobin Oxyhemoglobin Sodium Potassium Chloride Carbon Dioxide BUN Creatinine Glucose POC Glucose 107 H 110 H Lactic Acid Calcium Phosphorus Magnesium AST ALT Alkaline Phosphatase Lactate Dehydrogenase Troponin T C-Reactive Protein NT-Pro-B Natriuret Pep Total Protein Albumin LDL Cholesterol Direct Vitamin B12 Crossmatch 12/05/21 12/06/21 12/06/21 23:39 04:25 04:25 WBC RBC 2.95 L Hgb 7.9 L Hct 24.7 L MCV MCH 27 L MCHC RDW 20.9 H Plt Count Seg Neuts % (Manual) Lymphocytes % (Manual) Seg Neutrophils # Man Lymphocytes # (Manual) Monocytes # (Manual) PT INR D-Dimer ABG pH ABG pO2 ABG HCO3 ABG O2 Saturation ABG Base Excess ABG Hemoglobin Oxyhemoglobin Sodium Potassium Chloride Carbon Dioxide BUN 22 H Creatinine 0.5 L Glucose 136 H POC Glucose 118 H Lactic Acid Calcium 8.2 L Phosphorus Magnesium AST ALT Alkaline Phosphatase Lactate Dehydrogenase Troponin T C-Reactive Protein NT-Pro-B Natriuret Pep Total Protein Albumin LDL Cholesterol Direct Vitamin B12 Crossmatch 12/06/21 12/06/21 12/07/21 05:28 11:27 04:00 WBC RBC Hgb 7.2 L Hct 21.8 L MCV MCH MCHC RDW Plt Count Seg Neuts % (Manual) Lymphocytes % (Manual) Seg Neutrophils # Man Lymphocytes # (Manual) Monocytes # (Manual) PT INR D-Dimer ABG pH ABG pO2 ABG HCO3 ABG O2 Saturation ABG Base Excess ABG Hemoglobin Oxyhemoglobin Sodium Potassium Chloride Carbon Dioxide BUN Creatinine Glucose POC Glucose 142 H 126 H Lactic Acid Calcium Phosphorus Magnesium AST ALT Alkaline Phosphatase Lactate Dehydrogenase Troponin T C-Reactive Protein NT-Pro-B Natriuret Pep Total Protein Albumin LDL Cholesterol Direct Vitamin B12 Crossmatch 12/07/21 12/07/21 12/07/21 04:00 05:30 11:12 WBC RBC Hgb Hct MCV MCH MCHC RDW Plt Count Seg Neuts % (Manual) Lymphocytes % (Manual) Seg Neutrophils # Man Lymphocytes # (Manual) Monocytes # (Manual) PT INR D-Dimer ABG pH ABG pO2 ABG HCO3 ABG O2 Saturation ABG Base Excess ABG Hemoglobin Oxyhemoglobin Sodium Potassium Chloride Carbon Dioxide BUN 22 H Creatinine Glucose 119 H POC Glucose 121 H 124 H Lactic Acid Calcium 8.0 L Phosphorus Magnesium AST ALT Alkaline Phosphatase Lactate Dehydrogenase Troponin T C-Reactive Protein NT-Pro-B Natriuret Pep Total Protein Albumin LDL Cholesterol Direct Vitamin B12 Crossmatch 12/08/21 12/08/21 12/08/21 04:00 04:00 05:39 WBC RBC 2.81 L Hgb 7.7 L Hct 23.5 L MCV MCH MCHC RDW 21.2 H Plt Count Seg Neuts % (Manual) Lymphocytes % (Manual) Seg Neutrophils # Man Lymphocytes # (Manual) Monocytes # (Manual) PT INR D-Dimer ABG pH ABG pO2 ABG HCO3 ABG O2 Saturation ABG Base Excess ABG Hemoglobin Oxyhemoglobin Sodium 135 L Potassium Chloride Carbon Dioxide BUN 23 H Creatinine Glucose 109 H POC Glucose 112 H Lactic Acid Calcium Phosphorus Magnesium AST ALT Alkaline Phosphatase Lactate Dehydrogenase Troponin T C-Reactive Protein NT-Pro-B Natriuret Pep Total Protein Albumin LDL Cholesterol Direct Vitamin B12 Crossmatch 12/08/21 12/09/21 12/09/21 11:03 04:20 04:20 WBC RBC 2.67 L Hgb 7.6 L Hct 22.1 L MCV MCH MCHC RDW 20.8 H Plt Count Seg Neuts % (Manual) Lymphocytes % (Manual) Seg Neutrophils # Man Lymphocytes # (Manual) Monocytes # (Manual) PT INR D-Dimer ABG pH ABG pO2 ABG HCO3 ABG O2 Saturation ABG Base Excess ABG Hemoglobin Oxyhemoglobin Sodium 135 L Potassium Chloride 97.8 L Carbon Dioxide BUN 26 H Creatinine Glucose 119 H POC Glucose 108 H Lactic Acid Calcium 7.7 L Phosphorus Magnesium AST ALT Alkaline Phosphatase Lactate Dehydrogenase Troponin T C-Reactive Protein NT-Pro-B Natriuret Pep Total Protein Albumin LDL Cholesterol Direct Vitamin B12 Crossmatch 12/09/21 12/10/21 12/10/21 11:26 04:33 11:12 WBC RBC Hgb Hct MCV MCH MCHC RDW Plt Count Seg Neuts % (Manual) Lymphocytes % (Manual) Seg Neutrophils # Man Lymphocytes # (Manual) Monocytes # (Manual) PT INR D-Dimer ABG pH ABG pO2 ABG HCO3 ABG O2 Saturation ABG Base Excess ABG Hemoglobin Oxyhemoglobin Sodium 136 L Potassium Chloride Carbon Dioxide BUN 27 H Creatinine Glucose 117 H POC Glucose 110 H 117 H Lactic Acid Calcium 8.2 L Phosphorus Magnesium AST ALT Alkaline Phosphatase Lactate Dehydrogenase Troponin T C-Reactive Protein NT-Pro-B Natriuret Pep Total Protein Albumin LDL Cholesterol Direct Vitamin B12 Crossmatch 12/10/21 12/10/21 12/11/21 16:02 23:31 04:35 WBC RBC 2.57 L Hgb 7.0 L Hct 21.4 L MCV MCH 27 L MCHC RDW 21.1 H Plt Count Seg Neuts % (Manual) Lymphocytes % (Manual) Seg Neutrophils # Man Lymphocytes # (Manual) Monocytes # (Manual) PT INR D-Dimer ABG pH ABG pO2 ABG HCO3 ABG O2 Saturation ABG Base Excess ABG Hemoglobin Oxyhemoglobin Sodium Potassium Chloride Carbon Dioxide BUN Creatinine Glucose POC Glucose 137 H 111 H Lactic Acid Calcium Phosphorus Magnesium AST ALT Alkaline Phosphatase Lactate Dehydrogenase Troponin T C-Reactive Protein NT-Pro-B Natriuret Pep Total Protein Albumin LDL Cholesterol Direct Vitamin B12 Crossmatch 12/11/21 12/11/21 12/11/21 04:35 12:46 16:07 WBC RBC Hgb Hct MCV MCH MCHC RDW Plt Count Seg Neuts % (Manual) Lymphocytes % (Manual) Seg Neutrophils # Man Lymphocytes # (Manual) Monocytes # (Manual) PT INR D-Dimer ABG pH ABG pO2 ABG HCO3 ABG O2 Saturation ABG Base Excess ABG Hemoglobin Oxyhemoglobin Sodium 136 L Potassium Chloride Carbon Dioxide BUN 27 H Creatinine Glucose 112 H POC Glucose 115 H 111 H Lactic Acid Calcium 7.6 L Phosphorus Magnesium AST ALT Alkaline Phosphatase Lactate Dehydrogenase Troponin T C-Reactive Protein NT-Pro-B Natriuret Pep Total Protein Albumin LDL Cholesterol Direct Vitamin B12 Crossmatch 12/11/21 12/12/21 12/12/21 23:42 04:30 04:30 WBC RBC 2.60 L Hgb 7.1 L Hct 21.5 L MCV MCH 27 L MCHC RDW 20.3 H Plt Count Seg Neuts % (Manual) Lymphocytes % (Manual) Seg Neutrophils # Man Lymphocytes # (Manual) Monocytes # (Manual) PT INR D-Dimer ABG pH ABG pO2 ABG HCO3 ABG O2 Saturation ABG Base Excess ABG Hemoglobin Oxyhemoglobin Sodium 135 L Potassium Chloride 97.9 L Carbon Dioxide BUN 26 H Creatinine 0.5 L Glucose 138 H POC Glucose 115 H Lactic Acid Calcium 8.2 L Phosphorus Magnesium AST ALT Alkaline Phosphatase Lactate Dehydrogenase Troponin T C-Reactive Protein NT-Pro-B Natriuret Pep Total Protein Albumin LDL Cholesterol Direct Vitamin B12 Crossmatch 12/12/21 12/12/21 12/12/21 04:30 05:10 11:51 WBC RBC Hgb Hct MCV MCH MCHC RDW Plt Count Seg Neuts % (Manual) Lymphocytes % (Manual) Seg Neutrophils # Man Lymphocytes # (Manual) Monocytes # (Manual) PT INR D-Dimer ABG pH ABG pO2 ABG HCO3 ABG O2 Saturation ABG Base Excess ABG Hemoglobin Oxyhemoglobin Sodium Potassium Chloride Carbon Dioxide BUN Creatinine Glucose POC Glucose 119 H 119 H Lactic Acid Calcium Phosphorus Magnesium AST ALT Alkaline Phosphatase Lactate Dehydrogenase Troponin T C-Reactive Protein NT-Pro-B Natriuret Pep Total Protein Albumin LDL Cholesterol Direct Vitamin B12 Crossmatch See Detail 12/13/21 12/13/21 12/13/21 00:52 04:00 04:00 WBC RBC 2.73 L Hgb 7.4 L Hct 22.8 L MCV MCH 27 L MCHC RDW 20.5 H Plt Count Seg Neuts % (Manual) Lymphocytes % (Manual) Seg Neutrophils # Man Lymphocytes # (Manual) Monocytes # (Manual) PT INR D-Dimer ABG pH ABG pO2 ABG HCO3 ABG O2 Saturation ABG Base Excess ABG Hemoglobin Oxyhemoglobin Sodium 134 L Potassium Chloride 96.7 L Carbon Dioxide BUN 23 H Creatinine 0.5 L Glucose 131 H POC Glucose 131 H Lactic Acid Calcium 8.1 L Phosphorus Magnesium AST ALT Alkaline Phosphatase Lactate Dehydrogenase Troponin T C-Reactive Protein NT-Pro-B Natriuret Pep Total Protein Albumin LDL Cholesterol Direct Vitamin B12 Crossmatch 12/13/21 12/13/21 12/13/21 05:23 12:11 17:18 WBC RBC Hgb Hct MCV MCH MCHC RDW Plt Count Seg Neuts % (Manual) Lymphocytes % (Manual) Seg Neutrophils # Man Lymphocytes # (Manual) Monocytes # (Manual) PT INR D-Dimer ABG pH ABG pO2 ABG HCO3 ABG O2 Saturation ABG Base Excess ABG Hemoglobin Oxyhemoglobin Sodium Potassium Chloride Carbon Dioxide BUN Creatinine Glucose POC Glucose 121 H 143 H 148 H Lactic Acid Calcium Phosphorus Magnesium AST ALT Alkaline Phosphatase Lactate Dehydrogenase Troponin T C-Reactive Protein NT-Pro-B Natriuret Pep Total Protein Albumin LDL Cholesterol Direct Vitamin B12 Crossmatch 12/14/21 12/14/21 12/14/21 00:54 04:20 04:20 WBC RBC 2.39 L Hgb 6.5 L Hct 20.3 L MCV MCH 27 L MCHC RDW 20.3 H Plt Count Seg Neuts % (Manual) Lymphocytes % (Manual) Seg Neutrophils # Man Lymphocytes # (Manual) Monocytes # (Manual) PT INR D-Dimer ABG pH ABG pO2 ABG HCO3 ABG O2 Saturation ABG Base Excess ABG Hemoglobin Oxyhemoglobin Sodium 130 L Potassium Chloride 93.5 L Carbon Dioxide BUN 25 H Creatinine Glucose 123 H POC Glucose 123 H Lactic Acid Calcium 8.0 L Phosphorus Magnesium AST ALT Alkaline Phosphatase Lactate Dehydrogenase Troponin T C-Reactive Protein NT-Pro-B Natriuret Pep Total Protein Albumin LDL Cholesterol Direct Vitamin B12 Crossmatch 12/14/21 12/14/21 12/14/21 05:06 08:17 10:30 WBC RBC Hgb Hct MCV MCH MCHC RDW Plt Count Seg Neuts % (Manual) Lymphocytes % (Manual) Seg Neutrophils # Man Lymphocytes # (Manual) Monocytes # (Manual) PT INR D-Dimer ABG pH ABG pO2 ABG HCO3 ABG O2 Saturation ABG Base Excess ABG Hemoglobin Oxyhemoglobin Sodium Potassium Chloride Carbon Dioxide BUN Creatinine Glucose POC Glucose 131 H 119 H Lactic Acid Calcium Phosphorus Magnesium AST ALT Alkaline Phosphatase Lactate Dehydrogenase Troponin T C-Reactive Protein NT-Pro-B Natriuret Pep Total Protein Albumin LDL Cholesterol Direct Vitamin B12 Crossmatch See Detail 12/14/21 12/14/21 12/14/21 12:15 16:37 23:27 WBC RBC Hgb Hct MCV MCH MCHC RDW Plt Count Seg Neuts % (Manual) Lymphocytes % (Manual) Seg Neutrophils # Man Lymphocytes # (Manual) Monocytes # (Manual) PT INR D-Dimer ABG pH ABG pO2 ABG HCO3 ABG O2 Saturation ABG Base Excess ABG Hemoglobin Oxyhemoglobin Sodium Potassium Chloride Carbon Dioxide BUN Creatinine Glucose POC Glucose 147 H 141 H 130 H Lactic Acid Calcium Phosphorus Magnesium AST ALT Alkaline Phosphatase Lactate Dehydrogenase Troponin T C-Reactive Protein NT-Pro-B Natriuret Pep Total Protein Albumin LDL Cholesterol Direct Vitamin B12 Crossmatch 12/15/21 12/15/21 12/15/21 05:00 07:00 07:00 WBC 12.3 H RBC 3.27 L Hgb 8.8 L Hct 27.5 L D MCV MCH 27 L MCHC RDW 19.0 H Plt Count Seg Neuts % (Manual) Lymphocytes % (Manual) Seg Neutrophils # Man Lymphocytes # (Manual) Monocytes # (Manual) PT INR D-Dimer ABG pH ABG pO2 ABG HCO3 ABG O2 Saturation ABG Base Excess ABG Hemoglobin Oxyhemoglobin Sodium 134 L Potassium Chloride 95.7 L Carbon Dioxide BUN 28 H Creatinine Glucose 129 H POC Glucose 129 H Lactic Acid Calcium 8.2 L Phosphorus Magnesium AST ALT Alkaline Phosphatase Lactate Dehydrogenase Troponin T C-Reactive Protein NT-Pro-B Natriuret Pep Total Protein Albumin LDL Cholesterol Direct Vitamin B12 Crossmatch 12/15/21 12/15/21 12/15/21 11:18 16:00 23:39 WBC RBC Hgb Hct MCV MCH MCHC RDW Plt Count Seg Neuts % (Manual) Lymphocytes % (Manual) Seg Neutrophils # Man Lymphocytes # (Manual) Monocytes # (Manual) PT INR D-Dimer ABG pH ABG pO2 ABG HCO3 ABG O2 Saturation ABG Base Excess ABG Hemoglobin Oxyhemoglobin Sodium Potassium Chloride Carbon Dioxide BUN Creatinine Glucose POC Glucose 139 H 137 H 146 H Lactic Acid Calcium Phosphorus Magnesium AST ALT Alkaline Phosphatase Lactate Dehydrogenase Troponin T C-Reactive Protein NT-Pro-B Natriuret Pep Total Protein Albumin LDL Cholesterol Direct Vitamin B12 Crossmatch 12/16/21 12/16/21 12/16/21 05:24 10:21 10:21 WBC 15.3 H RBC 3.24 L Hgb 8.9 L Hct 27.7 L MCV MCH MCHC RDW 19.0 H Plt Count Seg Neuts % (Manual) Lymphocytes % (Manual) Seg Neutrophils # Man Lymphocytes # (Manual) Monocytes # (Manual) PT INR D-Dimer ABG pH ABG pO2 ABG HCO3 ABG O2 Saturation ABG Base Excess ABG Hemoglobin Oxyhemoglobin Sodium 131 L Potassium 3.5 L Chloride 92.7 L Carbon Dioxide BUN 36 H Creatinine Glucose 160 H POC Glucose 121 H Lactic Acid Calcium Phosphorus Magnesium 1.60 L AST ALT Alkaline Phosphatase Lactate Dehydrogenase Troponin T C-Reactive Protein NT-Pro-B Natriuret Pep Total Protein Albumin LDL Cholesterol Direct Vitamin B12 Crossmatch 12/16/21 12/16/21 12/16/21 11:21 18:28 20:52 WBC RBC Hgb Hct MCV MCH MCHC RDW Plt Count Seg Neuts % (Manual) Lymphocytes % (Manual) Seg Neutrophils # Man Lymphocytes # (Manual) Monocytes # (Manual) PT INR D-Dimer ABG pH 7.479 H ABG pO2 79.3 L ABG HCO3 27.3 H ABG O2 Saturation ABG Base Excess 3.6 H ABG Hemoglobin 9.1 L Oxyhemoglobin 94.9 L Sodium Potassium Chloride Carbon Dioxide BUN Creatinine Glucose POC Glucose 153 H 132 H Lactic Acid Calcium Phosphorus Magnesium AST ALT Alkaline Phosphatase Lactate Dehydrogenase Troponin T C-Reactive Protein NT-Pro-B Natriuret Pep Total Protein Albumin LDL Cholesterol Direct Vitamin B12 Crossmatch 12/16/21 12/17/21 12/17/21 23:30 04:25 04:25 WBC 12.3 H RBC 2.16 L Hgb 6.0 L Hct 18.1 L* D MCV MCH MCHC RDW 19.4 H Plt Count Seg Neuts % (Manual) Lymphocytes % (Manual) Seg Neutrophils # Man Lymphocytes # (Manual) Monocytes # (Manual) PT INR D-Dimer ABG pH ABG pO2 ABG HCO3 ABG O2 Saturation ABG Base Excess ABG Hemoglobin Oxyhemoglobin Sodium 132 L Potassium 3.2 L Chloride 112.0 H Carbon Dioxide BUN 32 H Creatinine Glucose 122 H POC Glucose 137 H Lactic Acid Calcium 6.8 L D Phosphorus Magnesium AST ALT Alkaline Phosphatase Lactate Dehydrogenase Troponin T C-Reactive Protein NT-Pro-B Natriuret Pep Total Protein Albumin LDL Cholesterol Direct Vitamin B12 Crossmatch 12/17/21 12/17/21 12/17/21 05:30 11:49 14:45 WBC RBC Hgb 9.7 L D Hct MCV MCH MCHC RDW Plt Count Seg Neuts % (Manual) Lymphocytes % (Manual) Seg Neutrophils # Man Lymphocytes # (Manual) Monocytes # (Manual) PT INR D-Dimer ABG pH ABG pO2 ABG HCO3 ABG O2 Saturation ABG Base Excess ABG Hemoglobin Oxyhemoglobin Sodium Potassium Chloride Carbon Dioxide BUN Creatinine Glucose POC Glucose 137 H 143 H Lactic Acid Calcium Phosphorus Magnesium AST ALT Alkaline Phosphatase Lactate Dehydrogenase Troponin T C-Reactive Protein NT-Pro-B Natriuret Pep Total Protein Albumin LDL Cholesterol Direct Vitamin B12 Crossmatch 12/17/21 12/18/21 12/18/21 17:01 05:04 05:04 WBC 13.8 H RBC 3.44 L Hgb 9.9 L Hct 28.8 L MCV MCH MCHC RDW 18.1 H Plt Count Seg Neuts % (Manual) Lymphocytes % (Manual) Seg Neutrophils # Man Lymphocytes # (Manual) Monocytes # (Manual) PT INR D-Dimer ABG pH ABG pO2 ABG HCO3 ABG O2 Saturation ABG Base Excess ABG Hemoglobin Oxyhemoglobin Sodium 132 L Potassium Chloride 97.4 L Carbon Dioxide BUN 38 H Creatinine Glucose 134 H POC Glucose 132 H Lactic Acid Calcium Phosphorus Magnesium AST ALT Alkaline Phosphatase Lactate Dehydrogenase Troponin T C-Reactive Protein NT-Pro-B Natriuret Pep Total Protein Albumin LDL Cholesterol Direct Vitamin B12 Crossmatch 12/18/21 12/18/21 12/18/21 05:28 10:57 16:27 WBC RBC Hgb Hct MCV MCH MCHC RDW Plt Count Seg Neuts % (Manual) Lymphocytes % (Manual) Seg Neutrophils # Man Lymphocytes # (Manual) Monocytes # (Manual) PT INR D-Dimer ABG pH ABG pO2 ABG HCO3 ABG O2 Saturation ABG Base Excess ABG Hemoglobin Oxyhemoglobin Sodium Potassium Chloride Carbon Dioxide BUN Creatinine Glucose POC Glucose 118 H 132 H 130 H Lactic Acid Calcium Phosphorus Magnesium AST ALT Alkaline Phosphatase Lactate Dehydrogenase Troponin T C-Reactive Protein NT-Pro-B Natriuret Pep Total Protein Albumin LDL Cholesterol Direct Vitamin B12 Crossmatch 12/19/21 12/19/21 12/19/21 00:02 04:41 04:41 WBC 16.0 H RBC 3.45 L Hgb 9.7 L Hct 29.1 L MCV MCH MCHC RDW 17.8 H Plt Count Seg Neuts % (Manual) Lymphocytes % (Manual) Seg Neutrophils # Man Lymphocytes # (Manual) Monocytes # (Manual) PT INR D-Dimer ABG pH ABG pO2 ABG HCO3 ABG O2 Saturation ABG Base Excess ABG Hemoglobin Oxyhemoglobin Sodium 133 L Potassium Chloride 97.9 L Carbon Dioxide BUN 36 H Creatinine 0.5 L Glucose 126 H POC Glucose 127 H Lactic Acid Calcium 8.3 L Phosphorus Magnesium AST ALT Alkaline Phosphatase Lactate Dehydrogenase Troponin T C-Reactive Protein NT-Pro-B Natriuret Pep Total Protein Albumin LDL Cholesterol Direct Vitamin B12 Crossmatch 12/19/21 12/19/21 12/19/21 05:26 12:20 16:43 WBC RBC Hgb Hct MCV MCH MCHC RDW Plt Count Seg Neuts % (Manual) Lymphocytes % (Manual) Seg Neutrophils # Man Lymphocytes # (Manual) Monocytes # (Manual) PT INR D-Dimer ABG pH ABG pO2 ABG HCO3 ABG O2 Saturation ABG Base Excess ABG Hemoglobin Oxyhemoglobin Sodium Potassium Chloride Carbon Dioxide BUN Creatinine Glucose POC Glucose 119 H 145 H 126 H Lactic Acid Calcium Phosphorus Magnesium AST ALT Alkaline Phosphatase Lactate Dehydrogenase Troponin T C-Reactive Protein NT-Pro-B Natriuret Pep Total Protein Albumin LDL Cholesterol Direct Vitamin B12 Crossmatch 12/19/21 12/20/21 12/20/21 23:30 04:54 04:54 WBC 12.3 H RBC 3.54 L Hgb 10.0 L Hct 29.5 L MCV MCH MCHC RDW 17.8 H Plt Count Seg Neuts % (Manual) 88.0 H Lymphocytes % (Manual) 6.0 L Seg Neutrophils # Man 10.8 H Lymphocytes # (Manual) 0.7 L Monocytes # (Manual) PT INR D-Dimer ABG pH ABG pO2 ABG HCO3 ABG O2 Saturation ABG Base Excess ABG Hemoglobin Oxyhemoglobin Sodium 131 L Potassium Chloride 96.2 L Carbon Dioxide BUN 36 H Creatinine 0.5 L Glucose 130 H POC Glucose 117 H Lactic Acid Calcium Phosphorus Magnesium AST ALT Alkaline Phosphatase Lactate Dehydrogenase Troponin T C-Reactive Protein NT-Pro-B Natriuret Pep Total Protein Albumin LDL Cholesterol Direct Vitamin B12 Crossmatch 12/20/21 12/20/21 12/20/21 05:20 11:51 17:30 WBC RBC Hgb Hct MCV MCH MCHC RDW Plt Count Seg Neuts % (Manual) Lymphocytes % (Manual) Seg Neutrophils # Man Lymphocytes # (Manual) Monocytes # (Manual) PT INR D-Dimer ABG pH ABG pO2 ABG HCO3 ABG O2 Saturation ABG Base Excess ABG Hemoglobin Oxyhemoglobin Sodium Potassium Chloride Carbon Dioxide BUN Creatinine Glucose POC Glucose 126 H 119 H 127 H Lactic Acid Calcium Phosphorus Magnesium AST ALT Alkaline Phosphatase Lactate Dehydrogenase Troponin T C-Reactive Protein NT-Pro-B Natriuret Pep Total Protein Albumin LDL Cholesterol Direct Vitamin B12 Crossmatch 12/21/21 12/21/21 12/21/21 00:45 04:21 04:21 WBC RBC 3.47 L Hgb 9.4 L Hct 29.2 L MCV MCH 27 L MCHC RDW 18.1 H Plt Count Seg Neuts % (Manual) Lymphocytes % (Manual) Seg Neutrophils # Man Lymphocytes # (Manual) Monocytes # (Manual) PT INR D-Dimer ABG pH ABG pO2 ABG HCO3 ABG O2 Saturation ABG Base Excess ABG Hemoglobin Oxyhemoglobin Sodium 134 L Potassium Chloride Carbon Dioxide BUN 35 H Creatinine 0.5 L Glucose 122 H POC Glucose 125 H Lactic Acid Calcium 8.2 L Phosphorus Magnesium AST ALT Alkaline Phosphatase Lactate Dehydrogenase Troponin T C-Reactive Protein NT-Pro-B Natriuret Pep Total Protein Albumin LDL Cholesterol Direct Vitamin B12 Crossmatch 12/21/21 12/21/21 12/21/21 05:38 11:29 16:16 WBC RBC Hgb Hct MCV MCH MCHC RDW Plt Count Seg Neuts % (Manual) Lymphocytes % (Manual) Seg Neutrophils # Man Lymphocytes # (Manual) Monocytes # (Manual) PT INR D-Dimer ABG pH ABG pO2 ABG HCO3 ABG O2 Saturation ABG Base Excess ABG Hemoglobin Oxyhemoglobin Sodium Potassium Chloride Carbon Dioxide BUN Creatinine Glucose POC Glucose 127 H 121 H 113 H Lactic Acid Calcium Phosphorus Magnesium AST ALT Alkaline Phosphatase Lactate Dehydrogenase Troponin T C-Reactive Protein NT-Pro-B Natriuret Pep Total Protein Albumin LDL Cholesterol Direct Vitamin B12 Crossmatch 12/22/21 12/22/21 12/23/21 04:58 04:58 06:40 WBC 11.5 H RBC 3.43 L Hgb 9.8 L Hct 28.7 L MCV MCH MCHC RDW 18.5 H 17.9 H Plt Count Seg Neuts % (Manual) Lymphocytes % (Manual) Seg Neutrophils # Man Lymphocytes # (Manual) Monocytes # (Manual) PT INR D-Dimer ABG pH ABG pO2 ABG HCO3 ABG O2 Saturation ABG Base Excess ABG Hemoglobin Oxyhemoglobin Sodium 130 L Potassium Chloride 97.8 L Carbon Dioxide BUN 31 H Creatinine 0.5 L Glucose 122 H POC Glucose Lactic Acid Calcium 7.9 L Phosphorus Magnesium AST ALT Alkaline Phosphatase Lactate Dehydrogenase Troponin T C-Reactive Protein NT-Pro-B Natriuret Pep Total Protein Albumin LDL Cholesterol Direct Vitamin B12 Crossmatch 12/23/21 12/23/21 12/24/21 06:40 23:25 04:24 WBC 11.7 H RBC Hgb 9.8 L Hct MCV MCH 26 L MCHC RDW 18.1 H Plt Count Seg Neuts % (Manual) Lymphocytes % (Manual) Seg Neutrophils # Man Lymphocytes # (Manual) Monocytes # (Manual) PT INR D-Dimer ABG pH ABG pO2 ABG HCO3 ABG O2 Saturation ABG Base Excess ABG Hemoglobin Oxyhemoglobin Sodium 136 L Potassium Chloride Carbon Dioxide BUN 27 H Creatinine 0.4 L Glucose 107 H POC Glucose 110 H Lactic Acid Calcium 8.1 L Phosphorus Magnesium AST ALT Alkaline Phosphatase Lactate Dehydrogenase Troponin T C-Reactive Protein NT-Pro-B Natriuret Pep Total Protein Albumin LDL Cholesterol Direct Vitamin B12 Crossmatch 12/24/21 12/24/21 12/24/21 04:24 11:08 15:45 WBC RBC Hgb Hct MCV MCH MCHC RDW Plt Count Seg Neuts % (Manual) Lymphocytes % (Manual) Seg Neutrophils # Man Lymphocytes # (Manual) Monocytes # (Manual) PT INR D-Dimer ABG pH ABG pO2 ABG HCO3 ABG O2 Saturation ABG Base Excess ABG Hemoglobin Oxyhemoglobin Sodium 132 L Potassium Chloride Carbon Dioxide BUN 27 H Creatinine 0.3 L Glucose 108 H POC Glucose 116 H 107 H Lactic Acid Calcium Phosphorus Magnesium AST ALT Alkaline Phosphatase Lactate Dehydrogenase Troponin T C-Reactive Protein NT-Pro-B Natriuret Pep Total Protein Albumin LDL Cholesterol Direct Vitamin B12 Crossmatch 12/24/21 12/25/21 12/25/21 23:43 05:29 11:48 WBC RBC Hgb Hct MCV MCH MCHC RDW Plt Count Seg Neuts % (Manual) Lymphocytes % (Manual) Seg Neutrophils # Man Lymphocytes # (Manual) Monocytes # (Manual) PT INR D-Dimer ABG pH ABG pO2 ABG HCO3 ABG O2 Saturation ABG Base Excess ABG Hemoglobin Oxyhemoglobin Sodium Potassium Chloride Carbon Dioxide BUN Creatinine Glucose POC Glucose 123 H 107 H 119 H Lactic Acid Calcium Phosphorus Magnesium AST ALT Alkaline Phosphatase Lactate Dehydrogenase Troponin T C-Reactive Protein NT-Pro-B Natriuret Pep Total Protein Albumin LDL Cholesterol Direct Vitamin B12 Crossmatch Allied health notes reviewed: nursing
--- NOTE | 2021-12-25 12:38 | Progress Note ---
Assessment and Plan Cultures: SARS CoV2 PCR: negative 11/03/2021 blood culture: Group B streptococcus 11/04/2021 blood culture: no growth 11/11/2021 blood culture: No growth 12/16/2021 tracheal aspirate culture no growth so far 12/16/2021 blood culture no growth so far A/P: 81-year-old female with diabetes mellitus, hypertension, arthritis was admitted with shortness of breath. She was also having fever: #Acute fevers: Likely secondary to MRSA bacteremia and pneumonia #MRSA bacteremia: Likely secondary to pneumonia. pacemaker in place. #Acute hypoxic respiratory failure: Secondary to above. Tracheostomy, on the vent. #Acute DVT: unable to anticoagulate Recs: -Continue vancomycin goal trough 10-20. Plan for 6 weeks -Follow up repeat blood cultures -She does have a pacer in place, and given her critical illness would doubt she would be a candidate for removal if vegetation found. As such would recommend 6 weeks IV antibiotics followed by PO suppression with bactrim for life. Will follow. Mahogany Montes MD [facility] ([facility] O: [phone] F: [phone] Subjective Date of service: 12/25/21 Principal diagnosis: Septic shock; AHRF; Anemia; Pneumonia; pleural effusion; HFrEF; Pulm HTN Interval history: Afebrile, no acute change at present. Objective - Exam Narrative Exam: Physical exam deferred to reduce risk of transmission of COVID-19. Please refer to primary team's note. - Constitutional Vitals: Vital Signs Temp Pulse Resp BP Pulse Ox 97.9 F 92 H 43 H 105/56 94 12/25/21 12:04 12/25/21 12:01 12/25/21 12:01 12/25/21 12:01 12/25/21 12:01 Temperature -Last 24 Hours Temperature 97.9 F Temperature 97.9 F Temperature 97.5 F Temperature 97.9 F Temperature 98.0 F Temperature 97.6 F Temperature 97.8 F - Labs CBC & Chem 7: 12/24/21 04:24 12/24/21 04:24 Labs: Abnormal lab results 12/24/21 12/24/21 12/25/21 Range/Units 15:45 23:43 05:29 POC Glucose 107 H 123 H 107 H (70-105) mg/dL 12/25/21 Range/Units 11:48 POC Glucose 119 H (70-105) mg/dL
--- NOTE | 2021-12-25 12:49 | Progress Note ---
Assessment and Plan Assessment and plan: This is a 81-year-old female with known history of diabetes mellitus, hypertension, PPM, and arthritis admitted for sepsis and acute hypoxia respiratory failure 2/2 bilateral pneumonia requiring intubation and ventilatory support Assessment and Plan Neuro : Anxiety, chronic pain -Neurology consulted, appreciate recommendations -CT brain showed no acute events -EEG interpreted as abnormal record due to diffuse slowing noted throughout the recording, suggestive of encephalopathic process and/or drug effect, possibilities of postictal state cannot be totally excluded. Clinical correlation is in order -MRI brain not obtained-> patient has metal in her body -Repeat CT head with no acute findings -Reorientation as needed -Ammonia 42, B12 1823, TSH 1.5 -BuSpar, Seroquel, [place], gabapentin -xanax changed to PRN, fent patch dc 12/14 -prn xanax and Dilaudid Cardio: Acute Heart failure with reduced EF, h/o chronic heart block s/p PPM, HTN, CAD s/p PCI (2004), Moderate pulmonary HTN, cardiomyopathy -s/p vasopressor support with levophed -11/04 echocardiogram shows EF 30 to 35%, Moderate pulmonary HTN RVSP 49 -/ echo with 35-40% EF -Cardiology consulted, appreciate recommendations -Continue beta-charleen and statin therapy -Midodrine (titrate as needed) -Not on aspirin due to allergy -Blood pressure monitoring per protocol -As needed nitroglycerin Resp: Acute hypoxic respiratory failure secondary to bilateral pneumonia, bilateral pleural effusion. Right pneumothorax (resolved) -COVID-19 PCR negative -Intubated on 11/06 with 6.00 ETT at 18 at the lip and changed over bougie on 11/11-7.50 ETT at 20 at the lip -See RT notes for titration -PSV as tolerated -Surgery consult for trach -Received trach/PEG on 11/26 -S/p bedside bronchoscopy on 11/11 complicated by pneumothorax -S/p chest tube placement for right pneumothorax and dislodgment by patient on 11/15 -ABG/CXR per [facility] -VAP bundle -Right chest wall ultrasound showed pleural effusion s/p chest tube -12/11 US thoracentesis removed 1L fluid -SPO2 monitoring -Mucomyst every 8 -Albuterol every 8 GI: S/p GI bleed, duodenal ulcer, transaminitis -GI consulted, appreciate recommendations -Nutrition consult for tube feeding -BR: Senokot, MiraLAX -s/p peg 11/26 -H2 charleen -Carafate -24-hour -4 ml -10/2021 Gastric occult positive -> EGD-> duodenal ulcer -12/14 occult stool positive : Urinary retention (resolved), hyponatremia, hypochloremia -Strict intake and output -Trend BMP ID: Septic shock (POA-resolved), bilateral pneumonia, MRSA bacteremia/pna -Infectious disease consulted, appreciate recommendations -COVID-19 PCR negative -Presented with fevers, leukocytosis and hypotension -11/04 blood cultures positive with a group B strep bacteremia 12/19 however repeat blood cultures on the with no growth to date -Echo showed no evidence of vegetation -repeat echo showed EF 35-40 % with no vegetations -ABX therapy: IV vancomycin -Monitor WBC and fever curve -Bedside bronchoscopy for mucous plug on CXR 11/11 -f/u blood cultures Heme: Acute DVT in the right external iliac vein, common femoral vein, superior aspect of femoral vein, Acute microcytic anemia -Evidenced on bilateral upper lower extremity ultrasound -S/p 7 unit PRBC -Trend CBC -Transfuse for hemoglobin less than 7 -heparin gtt dc d/t anemia -S/p IVC filter Endo: h/o DM and hypothyroidism -Continue home Synthroid -SSI -Accu-Cheks every 6 -Avoid hypoglycemia Disposition: Denied LTAC placement by insurance, appeal denied. Awaiting subacute rehab placement The high probability of a clinically significant, sudden or life threatening deterioration of the [pulm,mental health, CV] system(s) required my full and direct attention, intervention and personal management. The aggregate critical care time was [60] minutes. This time is in addition to time spent performing reported procedures but includes the following: [x] Data Review and interpretation [x] Patient assessment and monitoring of vital signs [x] Documentation [x] Medication orders and management Disposition Plan: icu Total Time Spent with Patient (Minutes): 60 History Interval history: This is an 82-year-old female with DM, HTN , CHB s/p PPM, CAD s/p PCI and arthritis who presented to the emergency department on 11/04 for shortness of breath ongoing for the past 3 days, cough and according to family a fever of 102.2. Upon arrival of EMS patient was found to be tachypneic and hypoxic with SPO2 of 76% on room air which later improved to 88% on nonrebreather. Work-up in the emergency department included a CXR which showed bilateral interstitial pulmonary edema with bilateral pleural effusions and bibasilar opacities, leukocytosis and anemia with a hemoglobin of 6.1. Patient was admitted to the hospitalist service with acute anemia, acute hypoxic respiratory failure, bilateral pneumonia and COVID-19 PUI with consults to pulmonology, infectious disease and later cardiology. Patient was eventually intubated in the emergency department on 11/06. Hospital Course to date: 11/04/2021: Empiric therapy with iv levaquin/vancomycin. COVID PCR pending. Will consult ID. PCCM consulted, will follow recs. Hypotensive this AM, ordered bolus and fluids at 150 cc/hr. May require pressor support if bp does not improve. 11/05/2021: GBS on bcx +, currently on rocephin IV. Currently on bipap due to respiratory distress overnight. Worsening BL opacities on CXR. May be volume overload vs pneumonia. Unfortunately bp too low for lasix at this point. WIll continue levophed and bipap. Once able to tolerate, may do trial of albumin/lasix. Call attempt made to Niraj, no response. Will try again tomorrow to u pdate. 11/06/2021: Decompensated overnight requiring intubation. CXR shows worsening interstitial infiltrates. Currenlty on dopamine, levophed, vasopressin. PICC line ordered. Advised RN to place gamble for I/O monitoring. Would benefit from diuresis but very volume overloaded. Prognosis guarded 11/08: Off sedation this am, remains unresponsive only grimace to pain. Hold all sedatives agents for now, patient is off pressors this am. Hypernatremia from today's lab- D5W X1bag, and low K repleted, repeat lab in the am. Severe constipation also noted from KUB, BR added. 11/09: Sudden SPO2 drop in the 60s this am. Patient was manually bagged and deep suctioned. Patient is currently stable on the vent, repeat CXR with no significant change. D/w CCM Mucomyst and brochodilator added. Patient mentation is unchanged, continue to hold off on sedative agents. Neurology consulted. 11/10: Acute DVT noted on bilateral lower extremity Doppler ultrasound therefore she was started on Lovenox treatment dose. Failed SBT. Hypernatremia and hyperchloremia noted, free water flush adjusted. 11/11: Patient noted to be febrile with increasing of the cytosis, UA/BC sent and CXR ordered. ID escalated antibiotics to cefepime. CXR demonstrated mucous plug, bedside bronchoscopy was performed and O ETT was changed over bougie from 6 cm to 7.5. Patient was noted to have a pneumothorax postprocedure and chest tube was placed. Family updated by [facility]. Free water flush increased and will add Jaswant supplementation. 11/12: Patient not noted to follow commands, hypernatremia worsen/persist, increasing free water flush, potassium and magnesium and phosphorus repleted. Hemoglobin noted to be 7./24.5 from 7.03/12 yesterday. We will continue to trend and monitor. Vent changes per [facility]. Repeat CXR showed no residual pneumothorax. Consider waterseal tomorrow. Given persistent leukocytosis antibiotics escalated to cefepime per ID. 11/13: Remains on cefepime and vancomycin, vent changes per CCM. Anemia noted and given 1 unit PRBC. And beta-charleen held in setting of Levophed drip infusing. Remains on fentanyl drip. 11/14: Patient put on CPAP trial by [facility], will continue chest tube until after ext ubation. Will rest on assist control. CT brain was cancelled by interventional radiology rn and reordered. 11/15: Patient removed chest tube overnight. Will obtain cxr. remains on low dose levo. CTH completed with no acute findings. RT to place on CPAP. 11/16: Hypernatremia/hyperchloremia noted on the increase of day water flushes. Anemia noted and ordered PRBC. asked RT to place on cpap but not done yet 11/17: Patient remains on the vent, awake and following commands. H&H stable s/p 2units PRBCs. GI on consult, no intervention at this time. Will continue protonix gtt and serial H&H Q6hrs. Keep patient NPO for now, D5w added for hypernatremia and NPO status. Plan for IVC filter placement today by Vascular. 11/18: Patient is s/p IVC filter. H&H continue to trend down, hbg 6.1 this am, 1 unit of PRBCs ordered. Plan for possible EGD today by GI. Keep patient NPO, continue PPI drip and serial H&H Q6hrs. Electrolytes repleted, repeat lab in the am 11/19: S/p EGD- larger duodenal ulcer noted, see operative note. GI recommendations noted also noted. H&H stable this am. Keep patient on protonix gtt for now. Will keep patient NPO, continue IVF and serial H&H for now. Electrolytes repleted, repeat labs in the am 11/20: Very agitated and restless this am, fentanyl gtt resumed. Patient remains on protonix gtt, H&H remains stable. Will switch protonix gtt to IV BID, continue carafate and okay to resume meds at this time. Will F/u with GI to see if TF can be resumed. Gamble was reinserted overnight for retention. Electrolytes repleted, repeat in the am. Plan for possible PST today for possible extubation per CCM. 11/21: Patient is now on seroquel and patient's home buspar resumed. Patient more calm this morning, fentanyl gtt is off. H&H remains stable and patient is tolerating TF. Patient had a runs of Vtach/PVCs this am, BB added per Cardio. Continue daily PS and wean trial for possible extubation. 11/22: Back on fentanyl gtt overnight , RASS o to -1, following commands. Patient failed PST this am due to increased work of breathing and low SPO2, ABG pending. Patient is also with worsen pitting edema, lasix is still on hold. Will discuss with cardio and CCM to possibly resume lasix. 11/23: MARIA DEL CARMEN overnight. Patient failed PST again this am. Per CCM plan for possible trach and PEG, hold off on IV lasix for now. General surgery consulted and family is aware of possible Trach and PEG. 11/24: Trach/PEG pending this week, continue SBT/SAT as tolerated. No acute events reported overnight. 11/25: Patient was n.p.o. overnight and will remain n.p.o. tonight for trach/PEG tomorrow morning. She failed to support trial again. KUB obtained due to distended belly. 11/26: Patient scheduled for tracheostomy and PEG tube placement today, has been n.p.o. since midnight. No acute events reported overnight. [facility] ordered simethicone scheduled. 11/27: No acute events reported overnight, patient received trach/PEG yesterday. Has been on feedings since last night. Still awaiting LTAC placement. 11/28: Patient magnesium repleted, repeat a.m. labs, SBT 11/29: Patient complains of chest pain but ECG obtained which showed no acute findings, ordered troponin. Patient failed CPAP yesterday and was trialed again today. levophed was restarted but will aggressively wean 11/30: Patient failed SBT. Continue supportive care. Started gabapentin today 12/01: MARIA DEL CARMEN overnight. Continue daily PST. Case management to arrange possible placement 12/02: Report of dark stools overnight, patient is hemodynamically stable. H&H stable, patient is on PPI. Will continue to trend H&H. Continue daily PST as tolerated. Awaiting LTAC vs SNF placement. 12/03: Hypotensive overnight, requiring low dose pressors. S/p X3 days of gentle diurese. Will continue to monitor, wean off pressors as tolerated for MAP of 65. Patient Failed PST yesterday, case management to follow up with insurance for possible LTAC placement. Continue daily PST as tolerated. PT eval and treat ordered. 12/04: Increased agitation and anxiety overnight, remains on buspar and seroquel, trazadone added to promote rest. Patient is now working with PT, keep patient engage and awake during the day so she can rest at night. No BM for over 5 days, BR was adjusted. Patient did not tolerate PST again yesterday, continue daily PST as tolerated. Continue to titrate pressor for MAP above 65. Pending possible LTAC placement, case management to arrange. 12/05: Still not getting much rest overnight, will add melatonin for sleep. Continue to engage patient during the day and promote rest at night. TF was held due to concern for possible bleeding, H&H remains stable and stools normal this am. Resume TF and continue PPI and carafate. Remains on low dose levophed, titrate as tolerated. Continue daily PST. Possible LTAC placement, awaiting approval. 12/06: MARIA DEL CARMEN overnight. Patient rested overnight. Continue supportive measures. Daily PST as tolerated. Awaiting possible LTAC placement 12/07: MARIA DEL CARMEN overnight. Plan for Tpiece trial today. Continue current supportive measures. Possible LTAC placement 12/08: Patient placed on pressure support trial again today, started on Xanax, no acute events reported overnight. Awaiting insurance approval for LTAC. 12/09: Levophed discontinued, LTAC transfer denied, started on midodrine and Lasix, ultrasound chest pending, started on Xanax 0.[address] De León updated family at bedside today. Started on Dilaudid every 3 hours as needed. 12/10: Patient placed on CPAP trial this morning, no acute events reported overnight. Will order ultrasound-guided thoracentesis. 12/11: Patient had a thoracentesis today, will decrease Xanax dosage and continue midodrine and diuresing. Patient failed CPAP today. 12/12: Patient not tolerate CPAP trials today, no acute events reported overnight 12/13: No acute events overnight. continue PSV trials as tolerated. Daughter updated at bedside 12/14: Patient noted to be anemic today, ordered gastric occult. Patient seems to be oversedated therefore Xanax changed to as needed and fentanyl patch discontinued. We will continue to monitor hyponatremia. 12/15: MARIA DEL CARMEN overnight. s/p 1unit of PRBCs, H&H stable this am, no signs of any active bleeding. Continue daily PST as tolerated. Awaiting placement. 12/16: Hypertensive this am, Midodrine decreased. Continue daily PST. MARIA DEL CARMEN overnight 12/17: Patient Hgb dropped to 6 this am, no s/s of any active bleeding, VSS. Patient received 1unit of PRBC, will continue to trend H&H. Patient was pancultured and back on IV Abx due to persistent fevers yesterday. ID is also back on the case. Continue IV Abx per ID and f/u on cultures data for sensitivity. Patient also failed PST yesterday, continue daily PST as tolerated. Electrolytes repleted, repeat labs in the am. 12/18: Patient blood cultures is growing GPC 4 out 4 bottles. PICC line D/Rivas, patient is already on IV Abx-cefepine and Vanc and ID is following. Patient remains hemodynamically stable. Daily PST as tolerated adn PRN Benzo for anxiety. 12/19: MARIA DEL CARMEN overnight. Culture data noted, continue IV Abx per ID. Orders placed for repeat Bculture. Gamble D/C overnight, patient is voiding. Check bladder scan as needed for retention. Patient failed PST again today. Continue daily PST as tolerated. 12/20: Fevers improved, Cultures +MRSA, on Vanco per ID. Repeat 2D Echo to r/o endocarditis. Patient continue to fail PST, PEEP increased to 8 today. Continue pulmonary hygiene and vent wean per CCM. Sodium tab added for hyponatremia. 12/22: Patient on pressure support trial for approximately 4 hours today, midodrine dosage increased due to hypotension. Lasix discontinued. 12/23: Started on a.m. Seroquel dose, midodrine increased to 10 mg 3 times daily, 500 mL normal saline bolus. 12/24: Seroquel dose changed (25 every morning, 75 nightly). updated at bedside by Dr. De León. CPAP trials as tolerated. Continue vancomycin. Awaiting placement. 12/25: Continue CPAP as tolerated, added gasx for distention. Continue supportive care Hospitalist Physical - Constitutional Vitals: Temp Pulse Resp BP Pulse Ox 97.9 F 92 H 43 H 105/56 94 12/25/21 12:04 12/25/21 12:01 12/25/21 12:01 12/25/21 12:01 12/25/21 12:01 General appearance: Present: no acute distress, other (Trach and on the vent) - EENT Eyes: Present: PERRL, EOM intact ENT: hearing intact, clear oral mucosa, dentition normal - Neck Neck: Present: normal ROM - Respiratory Respiratory effort: normal Respiratory: bilateral: CTA - Cardiovascular Rhythm: regular Heart Sounds: Present: S1 & S2. Absent: systolic murmur, diastolic murmur - Extremities Extremities: no ischemia, pulses intact, pulses symmetrical, No edema, normal temperature, normal color Peripheral Pulses: within normal limits - Abdominal General gastrointestinal: soft, non-tender, non-distended, normal bowel sounds - Integumentary Integumentary: Present: warm, dry - Psychiatric Psychiatric: cooperative - Neurologic Neurologic: CNII-XII intact, no focal deficits, moves all extremities - Allied Health Allied health notes reviewed: nursing, RT, social work HEART Score - HEART Score Troponin: Troponin T 0.045 ng/mL (0.00-0.029) H 11/29/21 20:15 Results - Labs CBC & Chem 7: 12/24/21 04:24 12/24/21 04:24 Labs: Laboratory Last Values WBC 11.7 K/mm3 (4.5-11.0) H 12/24/21 04:24 RBC 3.75 M/mm3 (3.65-5.03) 12/24/21 04:24 Hgb 9.8 gm/dl (10.1-14.3) L 12/24/21 04:24 Hct 31.8 % (30.3-42.9) 12/24/21 04:24 MCV 85 fl (79-97) 12/24/21 04:24 MCH 26 pg (28-32) L 12/24/21 04:24 MCHC 31 % (30-34) 12/24/21 04:24 RDW 18.1 % (13.2-15.2) H 12/24/21 04:24 Plt Count 259 K/mm3 (140-440) 12/24/21 04:24 Add Manual Diff Complete 12/20/21 04:54 Total Counted 100 12/20/21 04:54 Seg Neutrophils % Restoration Ecologist 11/06/21 15:50 Seg Neuts % (Manual) 88.0 % (40.0-70.0) H 12/20/21 04:54 Band Neutrophils % 0 % 12/20/21 04:54 Lymphocytes % (Manual) 6.0 % (13.4-35.0) L 12/20/21 04:54 Reactive Lymphs % (Man) 0 % 12/20/21 04:54 Monocytes % (Manual) 5.0 % (0.0-7.3) 12/20/21 04:54 Eosinophils % (Manual) 1.0 % (0.0-4.3) 12/20/21 04:54 Basophils % (Manual) 0 % (0.0-1.8) 12/20/21 04:54 Metamyelocytes % 0 % 12/20/21 04:54 Myelocytes % 0 % 12/20/21 04:54 Promyelocytes % 0 % 12/20/21 04:54 Blast Cells % 0 % 12/20/21 04:54 Nucleated RBC % Not Reportable 12/20/21 04:54 Seg Neutrophils # Man 10.8 K/mm3 (1.8-7.7) H 12/20/21 04:54 Band Neutrophils # 0.0 K/mm3 12/20/21 04:54 Lymphocytes # (Manual) 0.7 K/mm3 (1.2-5.4) L 12/20/21 04:54 Abs React Lymphs (Man) 0.0 K/mm3 12/20/21 04:54 Monocytes # (Manual) 0.6 K/mm3 (0.0-0.8) 12/20/21 04:54 Eosinophils # (Manual) 0.1 K/mm3 (0.0-0.4) 12/20/21 04:54 Basophils # (Manual) 0.0 K/mm3 (0.0-0.1) 12/20/21 04:54 Metamyelocytes # 0.0 K/mm3 12/20/21 04:54 Myelocytes # 0.0 K/mm3 12/20/21 04:54 Promyelocytes # 0.0 K/mm3 12/20/21 04:54 Blast Cells # 0.0 K/mm3 12/20/21 04:54 WBC Morphology Not Reportable 12/20/21 04:54 Hypersegmented Neuts Not Reportable 12/20/21 04:54 Hyposegmented Neuts Not Reportable 12/20/21 04:54 Hypogranular Neuts Not Reportable 12/20/21 04:54 Smudge Cells Not Reportable 12/20/21 04:54 Toxic Granulation Not Reportable 12/20/21 04:54 Toxic Vacuolation Not Reportable 12/20/21 04:54 Dohle Bodies Not Reportable 12/20/21 04:54 Pelger-Huet Anomaly Not Reportable 12/20/21 04:54 Irina Rods Not Reportable 12/20/21 04:54 Platelet Estimate Consistent w auto 12/20/21 04:54 Clumped Platelets Not Reportable 12/20/21 04:54 Plt Clumps, EDTA Not Reportable 12/20/21 04:54 Large Platelets Not Reportable 12/20/21 04:54 Giant Platelets Not Reportable 12/20/21 04:54 Platelet Satelliting Not Reportable 12/20/21 04:54 Plt Morphology Comment Not Reportable 12/20/21 04:54 RBC Morphology Not Reportable 12/20/21 04:54 Dimorphic RBCs Not Reportable 12/20/21 04:54 Polychromasia Not Reportable 12/20/21 04:54 Hypochromasia Not Reportable 12/20/21 04:54 Poikilocytosis Not Reportable 12/20/21 04:54 Anisocytosis 1+ 12/20/21 04:54 Microcytosis Not Reportable 12/20/21 04:54 Macrocytosis Not Reportable 12/20/21 04:54 Spherocytes Not Reportable 12/20/21 04:54 Pappenheimer Bodies Not Reportable 12/20/21 04:54 Sickle Cells Not Reportable 12/20/21 04:54 Target Cells Not Reportable 12/20/21 04:54 Tear Drop Cells Not Reportable 12/20/21 04:54 Ovalocytes Not Reportable 12/20/21 04:54 Helmet Cells Not Reportable 12/20/21 04:54 Odonnell-Pillsbury Bodies Not Reportable 12/20/21 04:54 [place] Rings Not Reportable 12/20/21 04:54 [place] Cells Not Reportable 12/20/21 04:54 Bite Cells Not Reportable 12/20/21 04:54 Crenated Cell Not Reportable 12/20/21 04:54 Elliptocytes Not Reportable 12/20/21 04:54 Acanthocytes (Spur) Not Reportable 12/20/21 04:54 Rouleaux Not Reportable 12/20/21 04:54 Hemoglobin C Crystals Not Reportable 12/20/21 04:54 Schistocytes Not Reportable 12/20/21 04:54 Malaria parasites Not Reportable 12/20/21 04:54 Godfrey Bodies Not Reportable 12/20/21 04:54 Hem Pathologist Commnt No 12/20/21 04:54 PT 16.9 Sec. (12.2-14.9) H 11/26/21 05:00 INR 1.24 (0.87-1.13) H 11/26/21 05:00 APTT 29.2 Sec. (24.2-36.6) 11/26/21 05:00 D-Dimer 2655.00 ng/mlDDU (0-234) H 11/11/21 04:28 ABG pH 7.479 pH Units (7.350-7.450) H 12/16/21 20:52 ABG pCO2 37.5 mm Hg 12/16/21 20:52 ABG pO2 79.3 mm Hg (80.0-90.0) L 12/16/21 20:52 ABG HCO3 27.3 mmol/L (20.0-26.0) H 12/16/21 20:52 ABG O2 Saturation 97.0 % (95.0-99.0) 12/16/21 20:52 ABG O2 Content 12.3 (0.0-44) 12/16/21 20:52 ABG Base Excess 3.6 mmol/L (-2.0-3.0) H 12/16/21 20:52 ABG Hemoglobin 9.1 gm/dl (12.0-16.0) L 12/16/21 20:52 ABG Carboxyhemoglobin 1.6 % (0.0-5.0) 12/16/21 20:52 ABG Methemoglobin 0.5 % (0.0-1.5) 12/16/21 20:52 Oxyhemoglobin 94.9 % (95.0-99.0) L 12/16/21 20:52 FiO2 30 % 12/16/21 20:52 Sodium 132 mmol/L (137-145) L 12/24/21 04:24 Potassium 4.1 mmol/L (3.6-5.0) 12/24/21 04:24 Chloride 98.3 mmol/L (98-107) 12/24/21 04:24 Carbon Dioxide 22 mmol/L (22-30) 12/24/21 04:24 Anion Gap 16 mmol/L 12/24/21 04:24 BUN 27 mg/dL (7-17) H 12/24/21 04:24 Creatinine 0.3 mg/dL (0.6-1.2) L 12/24/21 04:24 Estimated GFR > 60 ml/min 12/24/21 04:24 BUN/Creatinine Ratio 90 % 12/24/21 04:24 Glucose 108 mg/dL (65-100) H 12/24/21 04:24 POC Glucose 119 mg/dL (70-105) H 12/25/21 11:48 Lactic Acid 3.70 mmol/L (0.7-2.0) H* 11/03/21 22:32 Calcium 8.4 mg/dL (8.4-10.2) 12/24/21 04:24 Phosphorus 3.40 mg/dL (2.5-4.5) 12/21/21 04:21 Magnesium 1.70 mg/dL (1.7-2.3) 12/21/21 04:21 Ferritin 52.6 ng/mL (10.0-200.0) 11/05/21 06:11 Total Bilirubin 0.50 mg/dL (0.1-1.2) 11/17/21 05:56 Direct Bilirubin < 0.2 mg/dL (0-0.2) 11/11/21 04:28 Indirect Bilirubin 0.1 mg/dL 11/11/21 04:28 AST 36 units/L (5-40) 11/17/21 05:56 ALT 47 units/L (7-56) 11/17/21 05:56 Alkaline Phosphatase 107 units/L (35-129) 11/17/21 05:56 Ammonia 42.0 umol/L (25-60) 11/10/21 14:08 Lactate Dehydrogenase 187 units/L (91-180) H 11/05/21 06:11 Troponin T 0.045 ng/mL (0.00-0.029) H 11/29/21 20:15 C-Reactive Protein 22.20 mg/dL (0.00-1.30) H 11/05/21 06:11 NT-Pro-B Natriuret Pep 7895 pg/mL (0-900) H 11/03/21 22:32 Total Protein 5.1 g/dL (6.3-8.2) L 11/17/21 05:56 Albumin 2.2 g/dL (3.9-5) L 11/17/21 05:56 Albumin/Globulin Ratio 0.8 % 11/17/21 05:56 Triglycerides 59 mg/dL (2-149) 11/29/21 20:15 Cholesterol 74 mg/dL (50-199) 11/29/21 20:15 LDL Cholesterol Direct 25 mg/dL (50-130) L 11/29/21 20:15 HDL Cholesterol 41 mg/dL (40-59) 11/29/21 20:15 Cholesterol/HDL Ratio 1.80 % 11/29/21 20:15 Vitamin B12 1823 pg/mL (211-911) H 11/10/21 14:08 TSH 1.510 mlU/mL (0.270-4.200) 11/10/21 14:08 Urine Color Yellow (Yellow) 11/11/21 09:00 Urine Turbidity Slightly-cloudy (Clear) 11/11/21 09:00 Urine pH 5.0 (5.0-7.0) 11/11/21 09:00 Ur Specific [place] 1.009 (1.003-1.030) 11/11/21 09:00 Urine Protein <15 mg/dl mg/dL (Negative) 11/11/21 09:00 Urine Glucose (UA) Neg mg/dL (Negative) 11/11/21 09:00 Urine Ketones Neg mg/dL (Negative) 11/11/21 09:00 Urine Blood Mod (Negative) 11/11/21 09:00 Urine Nitrite Neg (Negative) 11/11/21 09:00 Urine Bilirubin Neg (Negative) 11/11/21 09:00 Urine Urobilinogen < 2.0 mg/dL (<2.0) 11/11/21 09:00 Ur Leukocyte Esterase Neg (Negative) 11/11/21 09:00 Urine WBC (Auto) < 1.0 /HPF (0.0-6.0) 11/11/21 09:00 Urine RBC (Auto) < 1.0 /HPF (0.0-6.0) 11/11/21 09:00 Vancomycin Trough 15.5 ug/mL (5.0-20.0) 12/19/21 13:48 Coronavirus (PCR) Negative (Negative) 11/10/21 08:30 Blood Type O POSITIVE 12/14/21 10:30 Antibody Screen Negative 12/14/21 10:30 Crossmatch See Detail 12/14/21 10:30 Microbiology: Microbiology 12/19/21 09:36 Peripheral/Venous Blood Culture - Final NO GROWTH AFTER 5 DAYS 12/19/21 09:36 Peripheral/Venous Blood Culture - Final NO GROWTH AFTER 5 DAYS Gamble/IV: Voiding Method External Female Catheter Active Medications - Current Medications Current Medications: Generic Name Dose Route Start Last Admin Trade Name Freq PRN Reason Stop Dose Admin Acetaminophen 650 mg 12/14/21 04:12 12/16/21 13:34 Acetaminophen 325 Mg/10.15 Ml Oral Liqd Unit Dose FEEDTUBE 650 mg Q6H PRN Administration Non Cardiac Pain or Temp>100.5 Hydrocodone Bitart/Acetaminophen 1 each 11/21/21 10:00 12/25/21 08:07 Hydrocodone/Acetaminophen 10-325mg Tab FEEDTUBE 1 each TID YOSSI Administration Alprazolam 0.25 mg 12/14/21 09:00 12/25/21 00:04 Alprazolam 0.25 Mg Tab PO 0.25 mg Q8H PRN Administration Agitation Lipase/Protease/Amylase 1 each 11/08/21 11:09 Lipase 10,500/Protease 25,000/Amylase 43,750 (Units) Dr Lema FEEDTUBE PRN PRN For Clogged Feeding Tube Buspirone HCl 7.5 mg 11/17/21 22:00 12/25/21 09:39 Buspirone 5 Mg Tab PO 7.5 mg BID YOSSI Administration Dextrose 0 ml 11/10/21 10:52 11/21/21 16:27 Dextrose 10% *Hypoglycemia IV 50 ml PRN PRN Administration Hypoglycemia Docusate Sodium 100 mg 12/04/21 11:00 12/25/21 09:39 Docusate Sodium 100 Mg/10 Ml Oral Liqd PO Not Given BID YOSSI Gabapentin 100 mg 12/01/21 10:00 12/25/21 09:39 Gabapentin 100 Mg Cap PO 100 mg QDAY YOSSI Administration Hydromorphone HCl 0.5 mg 12/08/21 20:06 12/25/21 12:02 Hydromorphone 1 Mg/1 Ml Inj IV 0.5 mg Q3H PRN Administration Pain, Moderate (4-6) Hydrophilic Ointment 1 applic 11/06/21 04:02 Lip Therapy Vaseline TP Q2HR PRN Dry Lips Vancomycin HCl 1 gm in 250 mls @ 166.667 mls/hr 12/16/21 14:00 12/24/21 14:33 Vancomycin/Ns 1 Gm/250 Ml IV 01/26/22 15:29 166.66 mls/hr Q24H YOSSI Administration Protocol Lansoprazole 30 mg 11/24/21 22:00 12/25/21 09:39 Lansoprazole 30 Mg Solutab FEEDTUBE 30 mg BID YOSSI Administration Levothyroxine Sodium 125 mcg 11/05/21 07:00 12/25/21 06:10 Levothyroxine 125 Mcg Tab PO 125 mcg DAILY@0600 [facility] Administration Melatonin 5 mg 12/05/21 22:00 12/24/21 21:01 Melatonin 5 Mg Tab PO 5 mg QHS [facility] Administration Metoprolol Tartrate 6.25 mg 12/08/21 22:52 12/25/21 09:40 Metoprolol Tartrate 25 Mg Tab PO Not Given BID [facility] Midodrine 10 mg 12/22/21 14:00 12/25/21 08:07 Midodrine 5 Mg Tab PO 10 mg TID [facility] Administration Multi-Ingred Cream/Lotion/Oil/Oint 1 applic 11/06/21 04:02 Mineral Oil/Petrolatum, White Ophth Oint 3.5 Gm OU Q4HR PRN Dry Eye(s) Nitroglycerin 0.4 mg 11/30/21 11:36 Nitroglycerin 0.4 Mg Tab Subl SL .Q5MIN PRN Chest Pain Ondansetron HCl 4 mg 12/05/21 10:00 12/25/21 02:54 Ondansetron 4 Mg/2 Ml Inj IV 4 mg Q8H PRN Administration Nausea And Vomiting Polyethylene Glycol 17 gm 12/02/21 10:00 12/25/21 09:40 Polyethylene Glycol 3350 17 Gm Powder PO Not Given QDAY [facility] Pravastatin Sodium 20 mg 11/18/21 22:00 12/24/21 21:01 Pravastatin 20 Mg Tab PO 20 mg QHS [facility] Administration Quetiapine Fumarate 75 mg 12/24/21 22:00 12/24/21 21:02 Quetiapine 25 Mg Tab PO 75 mg QHS [facility] Administration Quetiapine Fumarate 25 mg 12/25/21 10:00 12/25/21 09:39 Quetiapine 25 Mg Tab PO 25 mg QAM [facility] Administration Simethicone 160 mg 12/24/21 15:00 12/25/21 08:07 Simethicone 80 Mg Chew Tab PO 12/27/21 09:01 160 mg Q6H YOSSI Administration Simple Syrup 15 ml 11/08/21 11:09 Simple Syrup 15 Ml FEEDTUBE PRN PRN Hypoglycemia Simple Syrup 30 ml 11/08/21 11:09 Simple Syrup 15 Ml FEEDTUBE PRN PRN Hypoglycemia Sodium Bicarbonate 325 mg 11/08/21 11:09 Sodium Bicarbonate 325 Mg Tab FEEDTUBE PRN PRN For Clogged Feeding Tube Sodium Chloride 10 ml 11/04/21 10:00 12/25/21 09:39 Sodium Chloride 0.9% 10 Ml Flush Syringe IV 10 ml BID YOSSI Administration Sodium Chloride 10 ml 11/04/21 02:03 Sodium Chloride 0.9% 10 Ml Flush Syringe IV PRN PRN LINE FLUSH Sucralfate 1 gm 11/18/21 16:30 12/25/21 11:14 Sucralfate 1 Gm/10 Ml Oral Liqd PO 1 gm ACHS YOSSI Administration Trazodone HCl 50 mg 12/04/21 22:00 12/24/21 21:01 Trazodone 50 Mg Tab PO 50 mg QHS YOSSI Administration Nutrition/Malnutrition Assess - Dietary Evaluation Nutrition/Malnutrition Findings: Nutrition Notes Start: 11/04/21 17:16 Freq: Status: Active Protocol: Document 12/22/21 15:53 YOVANI (Rec: 12/22/21 16:03 NHALL [id number]) Nutrition Notes Initial or Follow up Reassessment Current Diagnosis Diabetes,Heart Failure, Respiratory Failure Other Pertinent Diagnosis Pneu, bilat pleural effusion, bacteremia Current Diet TF - Vital AF 1.2 at 40ml/hr Labs/Tests Na 130 BUN 31 Pertinent Medications Reviewed Height 5 ft Weight 71.5 kg [place] Body Weight (kg) 45.45 BMI 30.7 Weight change and time frame Current wt obtained from bed scale Weight Status Obese Subjective/Other Information Pt remains on vent support. Pt tolerating TF at goal rate. RN reports hypotension this am; may need levophed if NS bolus does not work. Percent of energy/protein needs met: 95% energy 79% pro Burn Absent Trauma Absent Minimum of two criteria No #1 Nutrition Diagnosis Inadequate oral intake Diagnosis Progress(for reassessment Continues documentation) Is patient on ventilator? Yes Is Patient Ambulatory and/or Out of Bed No REE-([facility]-confined to bed) 1316.916 Kcal/Kg value to use for calculation 17 Approximate Energy Requirements Using 1216 kcal/Kg Calculation Used for Recommendations Kcal/kg Additional Notes Pro needs 2g/kg IBW: 91g/day Fluid needs 1ml/kcal Nutrition Intervention Nutrition Support: Increase TF goal rate to Vital AF 1.2 at 45ml/hr with 70ml water flush q4h. Kcal 1,296 Protein (gm) 81 Carbohydrates (gm) 119 Fat (gm) 58 Fluid (mL) 876 Fiber (gm) 6 Goal #1 TF tolerance Goal #2 TF to meet at least 75% energy and pro needs Follow-Up By: 12/26/21 Additional Comments F/U: TF rate increase, vent status
[2021-12-25] MEDS ORDERED: SODIUM CHLORIDE 0.9% 1000 ML 1,000 ML ONE (15:06)
[2021-12-25] MEDS: VANCOMYCIN/NS 1 GM/250 ML 1 GM/250 ML BAG IV SCH (15:10)
[2021-12-25] MEDS: MELATONIN 5 MG TAB PO SCH (22:46)
[2021-12-25] MEDS: traZODone 50 MG TAB PO SCH (22:46)
[2021-12-25] MEDS: PRAVASTATIN 20 MG TAB PO SCH (22:48)
[2021-12-26] MEDS: SIMETHICONE 80 MG CHEW TAB PO SCH ×4 (07:19→20:26)
[2021-12-26] MEDS: LEVOTHYROXINE 125 MCG TAB PO SCH (07:20)
[2021-12-26 08:10] LABS: Hematocrit 28.3 % (30.3-42.9); Hemoglobin 9.3 gm/dl (10.1-14.3); Mean Corpuscular HGB Conc 33 % (30-34); Mean Corpuscular Volume 83 fl (79-97); Platelet Count 269 K/mm3 (140-440); Red Cell Distribution Width 18.2 % (13.2-15.2)
[2021-12-26 08:31] LABS: Blood Urea Nitrogen 25 mg/dL (7-17); Calcium 8.5 mg/dL (8.4-10.2); Hemolysis Index 26
[2021-12-26 08:34] LABS: BUN/Creatinine Ratio 83
[2021-12-26] MEDS: SUCRALFATE 1 GM/10 ML ORAL LIQD PO SCH ×4 (09:19→21:34)
[2021-12-26] MEDS: DOCUSATE SODIUM 100 MG/10 ML ORAL LIQD PO SCH ×2 (09:19→21:34)
[2021-12-26] MEDS: HYDROcodone/ACETAMINOPHEN 10-325MG TAB FEEDTUBE SCH ×3 (09:19→20:24)
[2021-12-26] MEDS: MIDODRINE 5 MG TAB PO SCH ×3 (09:19→21:35)
[2021-12-26] MEDS: METOPROLOL TARTRATE 25 MG TAB PO SCH ×2 (09:19→21:34)
[2021-12-26] MEDS: GABAPENTIN 100 MG CAP PO SCH (09:19)
[2021-12-26] MEDS: LANSOPRAZOLE 30 MG SOLUTAB FEEDTUBE SCH ×2 (09:19→21:35)
[2021-12-26] MEDS: busPIRone 5 MG TAB PO SCH ×3 (09:20→21:37)
[2021-12-26] MEDS: QUEtiapine 25 MG TAB PO SCH ×2 (09:39→21:36)
[2021-12-26] MEDS: ALPRAZolam 0.25 MG TAB PO PRN ×2 (09:39→20:24)
[2021-12-26] MEDS: POLYETHYLENE GLYCOL 3350 17 GM POWDER PO SCH (10:20)
--- NOTE | 2021-12-26 10:28 | Progress Note ---
Assessment and Plan Gram positive Bacteremia (MRSA) Acute respiratory failure with hypoxia, now on MVS Acute microcytic anemia Bilateral pneumonia DVT Left pleural effusion Cardiomyopathy EF 30-35% Moderate pulmonary HTN RVSP 49e - uptitrate Seroquel dose by 25 mg on am & pm dose - continue Vancomycin for MRSA (6 weeks of therapy recommended) - continue daily SAT and SBT assessment as tolerated - no new issues otherwise, continue care as below; - LTAC evaluation ongoing - prn Levophed for target MAP > 65 mmHg - continue to wean supplemental oxygen for target O2 sat's > 90% acutely - VAP bundle addressed - continue lung protective strategies - continue bronchodilators with routine trach care and pulmonary hygiene per RT - wean per pulmonary driven protocols otherwise - avoid nephrotoxins, renally dose all medications - continue accuchecks with glycemic control per SSI (While critically ill target blood glucose of 140-180 mg/dL; avoid hypoglycemia) - sedation prn for target RASS 0 to -1 - antibiotics per ID recommendations - continue to avoid benzodiazepine's, reduce the possibility of delirium - prn analgesia per CPOT score - Maintenance of sleep-wake cycle, avoid delirium - continue enteral nutritional support at goal rate as tolerated - G.I. & VTE prophylaxis - PT/OT/ROM exercises - continue mobility protocols for pressure ulcer prophylaxis - Monitor hemodynamics closely - continue other care per attending / other consultants - discharge planning ongoing concurrently COVID SPECIFIC INTERVENTIONS - COVID-19 PCR negative .... Re-evaluate in am & prn CONDITION: CRITICAL PROGNOSIS: GUARDED CODE STATUS: FULL CODE The high probability of a clinically significant, sudden or life-threatening deterioration of the [respiratory, cardiovascular & neurologic] system(s) required my full and direct attention, intervention and personal management. The aggregate critical care time was [33] minutes without overlap. Time includes spent on; [x] Data Review and interpretation [x] Patient assessment and monitoring of vital signs [x] Documentation [x] Medication orders and management Subjective Date of service: 12/26/21 Principal diagnosis: Septic shock; AHRF; Anemia; Pneumonia; pleural effusion; HFrEF; Pulm HTN Interval history: Patient is seen today for: Septic shock; Acute hypoxemic respiratory failure; Anemia; Bilateral pneumonia; Left pleural effusion; HFrEF 30-35%; Pulm HTN RVSP 49 Seen and examined at bedside; 24hour events reviewed; nursing and respiratory care staff consulted; no adverse overnight events reported to me; resting in bed; remains a difficult wean; tolerated only a feww minutes on SBT; still anxious and affecting weaning; denies N/V/F/C Objective Vital Signs - 12hr 12/25/21 12/25/21 12/25/21 22:31 22:47 23:00 Temperature Pulse Rate 77 83 82 Pulse Rate [ From Monitor] Respiratory 15 17 Rate Blood Pressure 101/69 101/69 106/67 O2 Sat by Pulse 97 96 Oximetry O2 Sat by Pulse Oximetry [ Assessment] 12/25/21 12/26/21 12/26/21 23:31 00:00 00:01 Temperature 97.6 F Pulse Rate 77 69 78 Pulse Rate [ From Monitor] Respiratory 20 14 Rate Blood Pressure 106/67 106/67 O2 Sat by Pulse 97 100 99 Oximetry O2 Sat by Pulse 100 Oximetry [ Assessment] 12/26/21 12/26/21 12/26/21 00:31 00:52 01:00 Temperature Pulse Rate 69 70 66 Pulse Rate [ From Monitor] Respiratory 21 17 Rate Blood Pressure 106/67 106/67 O2 Sat by Pulse 98 97 Oximetry O2 Sat by Pulse Oximetry [ Assessment] 12/26/21 12/26/21 12/26/21 01:30 02:00 02:30 Temperature Pulse Rate 70 72 66 Pulse Rate [ From Monitor] Respiratory 19 15 16 Rate Blood Pressure 88/37 93/54 93/54 O2 Sat by Pulse 98 97 99 Oximetry O2 Sat by Pulse Oximetry [ Assessment] 12/26/21 12/26/21 12/26/21 03:00 03:30 04:00 Temperature 98.6 F Pulse Rate 70 79 Pulse Rate [ 82 From Monitor] Respiratory 24 33 H Rate Blood Pressure 93/54 89/59 98/62 O2 Sat by Pulse 99 99 98 Oximetry O2 Sat by Pulse Oximetry [ Assessment] 12/26/21 12/26/21 12/26/21 04:30 05:00 05:30 Temperature Pulse Rate 76 85 Pulse Rate [ From Monitor] Respiratory 26 H 18 21 Rate Blood Pressure 98/62 88/56 88/56 O2 Sat by Pulse 97 99 97 Oximetry O2 Sat by Pulse Oximetry [ Assessment] 12/26/21 12/26/21 12/26/21 06:00 06:30 07:00 Temperature Pulse Rate 88 81 Pulse Rate [ From Monitor] Respiratory 35 H 29 H 29 H Rate Blood Pressure 88/56 125/90 104/62 O2 Sat by Pulse 98 96 95 Oximetry O2 Sat by Pulse Oximetry [ Assessment] 12/26/21 12/26/21 12/26/21 07:30 08:00 08:30 Temperature 97.9 F Pulse Rate 79 74 97 H Pulse Rate [ 82 From Monitor] Respiratory 20 18 26 H Rate Blood Pressure 104/62 104/62 83/50 O2 Sat by Pulse 99 97 98 Oximetry O2 Sat by Pulse Oximetry [ Assessment] 12/26/21 12/26/21 12/26/21 08:55 09:00 09:19 Temperature Pulse Rate 82 92 H Pulse Rate [ From Monitor] Respiratory 19 Rate Blood Pressure 83/50 129/80 O2 Sat by Pulse 98 93 Oximetry O2 Sat by Pulse Oximetry [ Assessment] 12/26/21 12/26/21 12/26/21 09:30 09:43 10:00 Temperature Pulse Rate 82 92 H Pulse Rate [ From Monitor] Respiratory 28 H 33 H Rate Blood Pressure 129/80 83/50 O2 Sat by Pulse 93 98 96 Oximetry O2 Sat by Pulse Oximetry [ Assessment] Constitutional: alert, appears uncomfortable, other (trach to MVS, frail elderly woman with mildly increased respiratory effort at rest) Eyes: non-icteric ENT: oropharynx moist, other (+ Midline tracheostomy with minimal secretions) Neck: supple, no lymphadenopathy, no JVD Effort: mildly labored Ascultation: Bilateral: diminished breath sounds, rhonchi Percussion: Bilateral: not dull Cardiovascular: regular rate and rhythm, other (S1,S2) Gastrointestinal: normoactive bowel sounds, soft, non-tender, non-distended (protuberant) Integumentary: normal Extremities: no cyanosis, pink and warm, pulses normal, edema (upper etremities) Neurologic: normal mental status, non-focal exam (grossly), pupils equal and round, motor strength normal and Psychiatric: anxious CBC and BMP: 12/26/21 07:51 12/26/21 07:51 ABG, PT/INR, D-dimer: ABG ABG pH 7.479 pH Units (7.350-7.450) H 12/16/21 20:52 ABG pCO2 37.5 mm Hg 12/16/21 20:52 ABG pO2 79.3 mm Hg (80.0-90.0) L 12/16/21 20:52 ABG O2 Saturation 97.0 % (95.0-99.0) 12/16/21 20:52 PT/INR, D-dimer PT 16.9 Sec. (12.2-14.9) H 11/26/21 05:00 INR 1.24 (0.87-1.13) H 11/26/21 05:00 D-Dimer 2655.00 ng/mlDDU (0-234) H 11/11/21 04:28 Abnormal lab findings: Abnormal Labs 11/03/21 11/03/21 11/03/21 22:32 22:32 22:32 WBC 29.3 H RBC 2.93 L Hgb 6.1 L Hct 21.9 L MCV 75 L MCH 21 L MCHC 28 L RDW 19.7 H Plt Count Seg Neuts % (Manual) 97.0 H Lymphocytes % (Manual) 3.0 L Seg Neutrophils # Man 28.4 H Lymphocytes # (Manual) 0.9 L Monocytes # (Manual) PT 18.6 H INR 1.40 H D-Dimer ABG pH ABG pO2 ABG HCO3 ABG O2 Saturation ABG Base Excess ABG Hemoglobin Oxyhemoglobin Sodium Potassium Chloride Carbon Dioxide 20 L BUN 33 H Creatinine Glucose 119 H POC Glucose Lactic Acid Calcium 8.3 L Phosphorus Magnesium AST ALT Alkaline Phosphatase Lactate Dehydrogenase Troponin T 0.035 H C-Reactive Protein NT-Pro-B Natriuret Pep Total Protein Albumin LDL Cholesterol Direct 34 L Vitamin B12 Crossmatch 11/03/21 11/03/21 11/03/21 22:32 22:32 23:57 WBC RBC Hgb Hct MCV MCH MCHC RDW Plt Count Seg Neuts % (Manual) Lymphocytes % (Manual) Seg Neutrophils # Man Lymphocytes # (Manual) Monocytes # (Manual) PT INR D-Dimer ABG pH ABG pO2 ABG HCO3 ABG O2 Saturation ABG Base Excess ABG Hemoglobin Oxyhemoglobin Sodium Potassium Chloride Carbon Dioxide BUN Creatinine Glucose POC Glucose Lactic Acid 3.70 H* Calcium Phosphorus Magnesium AST ALT Alkaline Phosphatase 139 H Lactate Dehydrogenase Troponin T C-Reactive Protein NT-Pro-B Natriuret Pep 7895 H Total Protein Albumin 3.5 L LDL Cholesterol Direct Vitamin B12 Crossmatch See Detail 11/04/21 11/04/21 11/05/21 00:59 13:58 00:51 WBC 27.9 H RBC 3.28 L Hgb 7.3 L Hct 25.5 L MCV 78 L MCH 22 L MCHC 29 L RDW 19.1 H Plt Count Seg Neuts % (Manual) 96.0 H Lymphocytes % (Manual) 2.0 L Seg Neutrophils # Man 26.8 H Lymphocytes # (Manual) 0.6 L Monocytes # (Manual) PT INR D-Dimer ABG pH ABG pO2 ABG HCO3 ABG O2 Saturation ABG Base Excess ABG Hemoglobin Oxyhemoglobin Sodium Potassium Chloride Carbon Dioxide BUN Creatinine Glucose POC Glucose Lactic Acid Calcium Phosphorus Magnesium AST ALT Alkaline Phosphatase Lactate Dehydrogenase Troponin T 0.051 H D 0.032 H D C-Reactive Protein NT-Pro-B Natriuret Pep Total Protein Albumin LDL Cholesterol Direct Vitamin B12 Crossmatch 11/05/21 11/05/21 11/05/21 06:11 06:11 06:11 WBC 31.8 H RBC 3.57 L Hgb 8.0 L Hct 27.7 L MCV 78 L MCH 22 L MCHC 29 L RDW 19.2 H Plt Count Seg Neuts % (Manual) 91.0 H Lymphocytes % (Manual) 4.5 L Seg Neutrophils # Man 28.9 H Lymphocytes # (Manual) Monocytes # (Manual) 1.1 H PT INR D-Dimer 1494.53 H ABG pH ABG pO2 ABG HCO3 ABG O2 Saturation ABG Base Excess ABG Hemoglobin Oxyhemoglobin Sodium Potassium Chloride Carbon Dioxide 19 L BUN 42 H Creatinine Glucose 115 H POC Glucose Lactic Acid Calcium Phosphorus Magnesium AST 43 H ALT Alkaline Phosphatase Lactate Dehydrogenase 187 H Troponin T C-Reactive Protein 22.20 H NT-Pro-B Natriuret Pep Total Protein 6.0 L Albumin 3.2 L LDL Cholesterol Direct Vitamin B12 Crossmatch 11/05/21 11/05/21 11/06/21 06:11 12:15 00:30 WBC RBC Hgb Hct MCV MCH MCHC RDW Plt Count Seg Neuts % (Manual) Lymphocytes % (Manual) Seg Neutrophils # Man Lymphocytes # (Manual) Monocytes # (Manual) PT INR D-Dimer ABG pH ABG pO2 ABG HCO3 ABG O2 Saturation ABG Base Excess ABG Hemoglobin Oxyhemoglobin Sodium Potassium Chloride Carbon Dioxide BUN Creatinine Glucose POC Glucose 113 H 69 L Lactic Acid Calcium Phosphorus Magnesium AST ALT Alkaline Phosphatase Lactate Dehydrogenase Troponin T 0.033 H C-Reactive Protein NT-Pro-B Natriuret Pep Total Protein Albumin LDL Cholesterol Direct Vitamin B12 Crossmatch 11/06/21 11/06/21 11/06/21 05:50 15:50 15:50 WBC 25.5 H RBC 3.62 L Hgb 8.0 L Hct 27.5 L MCV 76 L MCH 22 L MCHC 29 L RDW 19.6 H Plt Count Seg Neuts % (Manual) 92.0 H Lymphocytes % (Manual) 5.0 L Seg Neutrophils # Man 23.5 H Lymphocytes # (Manual) Monocytes # (Manual) PT INR D-Dimer ABG pH 7.305 L ABG pO2 ABG HCO3 15.8 L ABG O2 Saturation ABG Base Excess -9.6 L ABG Hemoglobin 8.6 L Oxyhemoglobin 94.6 L Sodium Potassium Chloride 113.9 H Carbon Dioxide 17 L BUN 56 H Creatinine Glucose 114 H POC Glucose Lactic Acid Calcium 7.9 L Phosphorus Magnesium AST 1410 H ALT 934 H Alkaline Phosphatase 142 H Lactate Dehydrogenase Troponin T C-Reactive Protein NT-Pro-B Natriuret Pep Total Protein 5.0 L Albumin 2.6 L LDL Cholesterol Direct Vitamin B12 Crossmatch 11/07/21 11/07/21 11/07/21 03:30 04:50 08:07 WBC RBC Hgb Hct MCV MCH MCHC RDW Plt Count Seg Neuts % (Manual) Lymphocytes % (Manual) Seg Neutrophils # Man Lymphocytes # (Manual) Monocytes # (Manual) PT INR D-Dimer ABG pH ABG pO2 296.9 H ABG HCO3 18.1 L ABG O2 Saturation 99.5 H ABG Base Excess -5.9 L ABG Hemoglobin 7.6 L Oxyhemoglobin Sodium Potassium Chloride Carbon Dioxide BUN Creatinine Glucose POC Glucose 106 H 108 H Lactic Acid Calcium Phosphorus Magnesium AST ALT Alkaline Phosphatase Lactate Dehydrogenase Troponin T C-Reactive Protein NT-Pro-B Natriuret Pep Total Protein Albumin LDL Cholesterol Direct Vitamin B12 Crossmatch 11/08/21 11/08/21 11/08/21 03:10 18:05 23:43 WBC RBC Hgb Hct MCV MCH MCHC RDW Plt Count Seg Neuts % (Manual) Lymphocytes % (Manual) Seg Neutrophils # Man Lymphocytes # (Manual) Monocytes # (Manual) PT INR D-Dimer ABG pH ABG pO2 127.4 H ABG HCO3 ABG O2 Saturation ABG Base Excess -3.4 L ABG Hemoglobin 7.4 L Oxyhemoglobin Sodium Potassium Chloride Carbon Dioxide BUN Creatinine Glucose POC Glucose 113 H 141 H Lactic Acid Calcium Phosphorus Magnesium AST ALT Alkaline Phosphatase Lactate Dehydrogenase Troponin T C-Reactive Protein NT-Pro-B Natriuret Pep Total Protein Albumin LDL Cholesterol Direct Vitamin B12 Crossmatch 11/08/21 11/08/21 11/09/21 Unknown Unknown 02:00 WBC 14.5 H RBC 3.35 L Hgb 7.5 L 8.1 L Hct 25.4 L 27.6 L MCV 76 L 76 L MCH 23 L 22 L MCHC RDW 19.9 H 19.9 H Plt Count Seg Neuts % (Manual) Lymphocytes % (Manual) Seg Neutrophils # Man Lymphocytes # (Manual) Monocytes # (Manual) PT INR D-Dimer ABG pH ABG pO2 ABG HCO3 ABG O2 Saturation ABG Base Excess ABG Hemoglobin Oxyhemoglobin Sodium 154 H D Potassium 3.3 L Chloride 120.7 H Carbon Dioxide 20 L BUN 38 H Creatinine Glucose POC Glucose Lactic Acid Calcium 8.3 L Phosphorus Magnesium AST ALT Alkaline Phosphatase Lactate Dehydrogenase Troponin T C-Reactive Protein NT-Pro-B Natriuret Pep Total Protein Albumin LDL Cholesterol Direct Vitamin B12 Crossmatch 11/09/21 11/09/21 11/09/21 02:00 02:31 05:12 WBC RBC Hgb Hct MCV MCH MCHC RDW Plt Count Seg Neuts % (Manual) Lymphocytes % (Manual) Seg Neutrophils # Man Lymphocytes # (Manual) Monocytes # (Manual) PT INR D-Dimer ABG pH 7.479 H ABG pO2 121.3 H ABG HCO3 ABG O2 Saturation ABG Base Excess ABG Hemoglobin 7.3 L Oxyhemoglobin Sodium Potassium Chloride 112.5 H Carbon Dioxide BUN 33 H Creatinine Glucose 161 H POC Glucose 135 H Lactic Acid Calcium Phosphorus Magnesium AST 251 H ALT 481 H Alkaline Phosphatase Lactate Dehydrogenase Troponin T C-Reactive Protein NT-Pro-B Natriuret Pep Total Protein 5.0 L Albumin 2.8 L LDL Cholesterol Direct Vitamin B12 Crossmatch 11/09/21 11/09/21 11/09/21 11:33 16:32 23:28 WBC RBC Hgb Hct MCV MCH MCHC RDW Plt Count Seg Neuts % (Manual) Lymphocytes % (Manual) Seg Neutrophils # Man Lymphocytes # (Manual) Monocytes # (Manual) PT INR D-Dimer ABG pH ABG pO2 ABG HCO3 ABG O2 Saturation ABG Base Excess ABG Hemoglobin Oxyhemoglobin Sodium Potassium Chloride Carbon Dioxide BUN Creatinine Glucose POC Glucose 132 H 133 H 143 H Lactic Acid Calcium Phosphorus Magnesium AST ALT Alkaline Phosphatase Lactate Dehydrogenase Troponin T C-Reactive Protein NT-Pro-B Natriuret Pep Total Protein Albumin LDL Cholesterol Direct Vitamin B12 Crossmatch 11/10/21 11/10/21 11/10/21 04:00 04:00 05:35 WBC 16.0 H RBC 3.61 L Hgb 8.0 L Hct 27.1 L MCV 75 L MCH 22 L MCHC RDW 20.4 H Plt Count Seg Neuts % (Manual) Lymphocytes % (Manual) Seg Neutrophils # Man Lymphocytes # (Manual) Monocytes # (Manual) PT INR D-Dimer ABG pH ABG pO2 ABG HCO3 ABG O2 Saturation ABG Base Excess ABG Hemoglobin Oxyhemoglobin Sodium 149 H Potassium Chloride 114.1 H Carbon Dioxide BUN 31 H Creatinine Glucose 148 H POC Glucose 132 H Lactic Acid Calcium 8.2 L Phosphorus Magnesium AST ALT Alkaline Phosphatase Lactate Dehydrogenase Troponin T C-Reactive Protein NT-Pro-B Natriuret Pep Total Protein Albumin LDL Cholesterol Direct Vitamin B12 Crossmatch 11/10/21 11/10/21 11/10/21 11:31 14:08 15:35 WBC RBC Hgb Hct MCV MCH MCHC RDW Plt Count Seg Neuts % (Manual) Lymphocytes % (Manual) Seg Neutrophils # Man Lymphocytes # (Manual) Monocytes # (Manual) PT INR D-Dimer ABG pH ABG pO2 126.6 H ABG HCO3 ABG O2 Saturation ABG Base Excess ABG Hemoglobin 7.4 L Oxyhemoglobin Sodium Potassium Chloride Carbon Dioxide BUN Creatinine Glucose POC Glucose 147 H Lactic Acid Calcium Phosphorus Magnesium AST ALT Alkaline Phosphatase Lactate Dehydrogenase Troponin T C-Reactive Protein NT-Pro-B Natriuret Pep Total Protein Albumin LDL Cholesterol Direct Vitamin B12 1823 H Crossmatch 11/10/21 11/11/21 11/11/21 17:53 00:55 04:28 WBC RBC Hgb Hct MCV MCH MCHC RDW Plt Count Seg Neuts % (Manual) Lymphocytes % (Manual) Seg Neutrophils # Man Lymphocytes # (Manual) Monocytes # (Manual) PT INR D-Dimer ABG pH ABG pO2 ABG HCO3 ABG O2 Saturation ABG Base Excess ABG Hemoglobin Oxyhemoglobin Sodium 149 H Potassium Chloride 112.2 H Carbon Dioxide BUN 34 H Creatinine Glucose 148 H POC Glucose 140 H 145 H Lactic Acid Calcium 7.9 L Phosphorus Magnesium AST 53 H ALT 203 H Alkaline Phosphatase Lactate Dehydrogenase Troponin T C-Reactive Protein NT-Pro-B Natriuret Pep Total Protein 4.9 L Albumin 2.6 L LDL Cholesterol Direct Vitamin B12 Crossmatch 11/11/21 11/11/21 11/11/21 04:28 04:28 05:28 WBC 20.9 H RBC 3.47 L Hgb 7.5 L Hct 26.0 L MCV 75 L MCH 22 L MCHC 29 L RDW 21.6 H Plt Count 132 L Seg Neuts % (Manual) Lymphocytes % (Manual) Seg Neutrophils # Man Lymphocytes # (Manual) Monocytes # (Manual) PT INR D-Dimer 2655.00 H ABG pH ABG pO2 ABG HCO3 ABG O2 Saturation ABG Base Excess ABG Hemoglobin Oxyhemoglobin Sodium Potassium Chloride Carbon Dioxide BUN Creatinine Glucose POC Glucose 154 H Lactic Acid Calcium Phosphorus Magnesium AST ALT Alkaline Phosphatase Lactate Dehydrogenase Troponin T C-Reactive Protein NT-Pro-B Natriuret Pep Total Protein Albumin LDL Cholesterol Direct Vitamin B12 Crossmatch 11/11/21 11/11/21 11/12/21 12:38 18:13 00:14 WBC RBC Hgb Hct MCV MCH MCHC RDW Plt Count Seg Neuts % (Manual) Lymphocytes % (Manual) Seg Neutrophils # Man Lymphocytes # (Manual) Monocytes # (Manual) PT INR D-Dimer ABG pH ABG pO2 ABG HCO3 ABG O2 Saturation ABG Base Excess ABG Hemoglobin Oxyhemoglobin Sodium Potassium Chloride Carbon Dioxide BUN Creatinine Glucose POC Glucose 137 H 108 H 137 H Lactic Acid Calcium Phosphorus Magnesium AST ALT Alkaline Phosphatase Lactate Dehydrogenase Troponin T C-Reactive Protein NT-Pro-B Natriuret Pep Total Protein Albumin LDL Cholesterol Direct Vitamin B12 Crossmatch 11/12/21 11/12/21 11/12/21 05:40 06:24 11:12 WBC RBC Hgb Hct MCV MCH MCHC RDW Plt Count Seg Neuts % (Manual) Lymphocytes % (Manual) Seg Neutrophils # Man Lymphocytes # (Manual) Monocytes # (Manual) PT INR D-Dimer ABG pH 7.586 H ABG pO2 150.6 H ABG HCO3 27.2 H ABG O2 Saturation 99.1 H ABG Base Excess 5.2 H ABG Hemoglobin 7.5 L Oxyhemoglobin Sodium Potassium Chloride Carbon Dioxide BUN Creatinine Glucose POC Glucose 132 H 140 H Lactic Acid Calcium Phosphorus Magnesium AST ALT Alkaline Phosphatase Lactate Dehydrogenase Troponin T C-Reactive Protein NT-Pro-B Natriuret Pep Total Protein Albumin LDL Cholesterol Direct Vitamin B12 Crossmatch 11/12/21 11/12/21 11/12/21 14:50 14:50 17:13 WBC 19.8 H RBC 3.27 L Hgb 7.1 L Hct 24.5 L MCV 75 L MCH 22 L MCHC 29 L RDW 22.3 H Plt Count Seg Neuts % (Manual) Lymphocytes % (Manual) Seg Neutrophils # Man Lymphocytes # (Manual) Monocytes # (Manual) PT INR D-Dimer ABG pH ABG pO2 ABG HCO3 ABG O2 Saturation ABG Base Excess ABG Hemoglobin Oxyhemoglobin Sodium 150 H Potassium 3.3 L Chloride 112.0 H Carbon Dioxide BUN 40 H Creatinine Glucose 151 H POC Glucose 121 H Lactic Acid Calcium 7.4 L Phosphorus 1.70 L Magnesium 1.40 L AST ALT Alkaline Phosphatase Lactate Dehydrogenase Troponin T C-Reactive Protein NT-Pro-B Natriuret Pep Total Protein Albumin LDL Cholesterol Direct Vitamin B12 Crossmatch 11/12/21 11/13/21 11/13/21 23:19 05:34 06:30 WBC RBC Hgb Hct MCV MCH MCHC RDW Plt Count Seg Neuts % (Manual) Lymphocytes % (Manual) Seg Neutrophils # Man Lymphocytes # (Manual) Monocytes # (Manual) PT INR D-Dimer ABG pH ABG pO2 ABG HCO3 ABG O2 Saturation ABG Base Excess ABG Hemoglobin Oxyhemoglobin Sodium 149 H Potassium Chloride 60.0 L Carbon Dioxide BUN 40 H Creatinine Glucose 146 H POC Glucose 113 H 132 H Lactic Acid Calcium 7.3 L Phosphorus Magnesium 2.40 H AST ALT 72 H Alkaline Phosphatase Lactate Dehydrogenase Troponin T C-Reactive Protein NT-Pro-B Natriuret Pep Total Protein 5.2 L Albumin 2.2 L LDL Cholesterol Direct Vitamin B12 Crossmatch 11/13/21 11/13/21 11/13/21 06:30 08:30 11:19 WBC 21.2 H RBC 3.12 L Hgb 6.8 L Hct 23.2 L MCV 74 L MCH 22 L MCHC 29 L RDW 22.2 H Plt Count 135 L Seg Neuts % (Manual) Lymphocytes % (Manual) Seg Neutrophils # Man Lymphocytes # (Manual) Monocytes # (Manual) PT INR D-Dimer ABG pH ABG pO2 ABG HCO3 ABG O2 Saturation ABG Base Excess ABG Hemoglobin Oxyhemoglobin Sodium Potassium Chloride Carbon Dioxide BUN Creatinine Glucose POC Glucose 136 H Lactic Acid Calcium Phosphorus Magnesium AST ALT Alkaline Phosphatase Lactate Dehydrogenase Troponin T C-Reactive Protein NT-Pro-B Natriuret Pep Total Protein Albumin LDL Cholesterol Direct Vitamin B12 Crossmatch See Detail 11/13/21 11/14/21 11/14/21 18:21 00:01 04:46 WBC 20.0 H RBC 3.41 L Hgb 7.9 L Hct 26.8 L MCV MCH 23 L MCHC 29 L RDW 24.0 H Plt Count Seg Neuts % (Manual) Lymphocytes % (Manual) Seg Neutrophils # Man Lymphocytes # (Manual) Monocytes # (Manual) PT INR D-Dimer ABG pH ABG pO2 ABG HCO3 ABG O2 Saturation ABG Base Excess ABG Hemoglobin Oxyhemoglobin Sodium Potassium Chloride Carbon Dioxide BUN Creatinine Glucose POC Glucose 149 H 141 H Lactic Acid Calcium Phosphorus Magnesium AST ALT Alkaline Phosphatase Lactate Dehydrogenase Troponin T C-Reactive Protein NT-Pro-B Natriuret Pep Total Protein Albumin LDL Cholesterol Direct Vitamin B12 Crossmatch 11/14/21 11/14/21 11/14/21 04:46 05:10 11:10 WBC RBC Hgb Hct MCV MCH MCHC RDW Plt Count Seg Neuts % (Manual) Lymphocytes % (Manual) Seg Neutrophils # Man Lymphocytes # (Manual) Monocytes # (Manual) PT INR D-Dimer ABG pH ABG pO2 ABG HCO3 ABG O2 Saturation ABG Base Excess ABG Hemoglobin Oxyhemoglobin Sodium 148 H Potassium Chloride 113.1 H Carbon Dioxide BUN 43 H Creatinine Glucose 140 H POC Glucose 132 H 133 H Lactic Acid Calcium 7.5 L Phosphorus Magnesium AST ALT Alkaline Phosphatase Lactate Dehydrogenase Troponin T C-Reactive Protein NT-Pro-B Natriuret Pep Total Protein Albumin LDL Cholesterol Direct Vitamin B12 Crossmatch 11/14/21 11/14/21 11/14/21 16:14 17:48 23:23 WBC RBC Hgb Hct MCV MCH MCHC RDW Plt Count Seg Neuts % (Manual) Lymphocytes % (Manual) Seg Neutrophils # Man Lymphocytes # (Manual) Monocytes # (Manual) PT INR D-Dimer ABG pH ABG pO2 ABG HCO3 28.0 H ABG O2 Saturation ABG Base Excess 3.1 H ABG Hemoglobin 5.8 L Oxyhemoglobin 94.8 L Sodium Potassium Chloride Carbon Dioxide BUN Creatinine Glucose POC Glucose 130 H 136 H Lactic Acid Calcium Phosphorus Magnesium AST ALT Alkaline Phosphatase Lactate Dehydrogenase Troponin T C-Reactive Protein NT-Pro-B Natriuret Pep Total Protein Albumin LDL Cholesterol Direct Vitamin B12 Crossmatch 11/15/21 11/15/21 11/15/21 05:20 05:50 05:50 WBC 19.9 H RBC 3.50 L Hgb 8.2 L Hct 27.9 L MCV MCH 23 L MCHC 29 L RDW 24.9 H Plt Count Seg Neuts % (Manual) Lymphocytes % (Manual) Seg Neutrophils # Man Lymphocytes # (Manual) Monocytes # (Manual) PT INR D-Dimer ABG pH ABG pO2 ABG HCO3 ABG O2 Saturation ABG Base Excess ABG Hemoglobin Oxyhemoglobin Sodium 149 H Potassium Chloride 112.0 H Carbon Dioxide BUN 48 H Creatinine Glucose 152 H POC Glucose 137 H Lactic Acid Calcium 7.9 L Phosphorus Magnesium AST ALT Alkaline Phosphatase Lactate Dehydrogenase Troponin T C-Reactive Protein NT-Pro-B Natriuret Pep Total Protein Albumin LDL Cholesterol Direct Vitamin B12 Crossmatch 11/15/21 11/15/21 11/15/21 12:12 17:07 23:24 WBC RBC Hgb Hct MCV MCH MCHC RDW Plt Count Seg Neuts % (Manual) Lymphocytes % (Manual) Seg Neutrophils # Man Lymphocytes # (Manual) Monocytes # (Manual) PT INR D-Dimer ABG pH ABG pO2 ABG HCO3 ABG O2 Saturation ABG Base Excess ABG Hemoglobin Oxyhemoglobin Sodium Potassium Chloride Carbon Dioxide BUN Creatinine Glucose POC Glucose 114 H 135 H 123 H Lactic Acid Calcium Phosphorus Magnesium AST ALT Alkaline Phosphatase Lactate Dehydrogenase Troponin T C-Reactive Protein NT-Pro-B Natriuret Pep Total Protein Albumin LDL Cholesterol Direct Vitamin B12 Crossmatch 11/16/21 11/16/21 11/16/21 05:21 10:00 10:00 WBC 21.7 H RBC 2.57 L Hgb 6.0 L Hct 20.2 L D MCV MCH 24 L MCHC RDW 26.3 H Plt Count Seg Neuts % (Manual) Lymphocytes % (Manual) Seg Neutrophils # Man Lymphocytes # (Manual) Monocytes # (Manual) PT INR D-Dimer ABG pH ABG pO2 ABG HCO3 ABG O2 Saturation ABG Base Excess ABG Hemoglobin Oxyhemoglobin Sodium 153 H Potassium Chloride 114.9 H Carbon Dioxide BUN 74 H Creatinine Glucose 155 H POC Glucose 127 H Lactic Acid Calcium 8.1 L Phosphorus Magnesium AST ALT Alkaline Phosphatase Lactate Dehydrogenase Troponin T C-Reactive Protein NT-Pro-B Natriuret Pep Total Protein Albumin LDL Cholesterol Direct Vitamin B12 Crossmatch 11/16/21 11/16/21 11/16/21 11:34 14:00 15:25 WBC 17.2 H RBC 2.08 L Hgb 4.7 L* Hct 16.2 L* MCV 78 L MCH 23 L MCHC 29 L RDW 26.0 H Plt Count Seg Neuts % (Manual) 87.0 H Lymphocytes % (Manual) 8.0 L Seg Neutrophils # Man 15.0 H Lymphocytes # (Manual) Monocytes # (Manual) 0.9 H PT INR D-Dimer ABG pH ABG pO2 ABG HCO3 ABG O2 Saturation ABG Base Excess ABG Hemoglobin Oxyhemoglobin Sodium Potassium Chloride Carbon Dioxide BUN Creatinine Glucose POC Glucose 131 H Lactic Acid Calcium Phosphorus Magnesium AST ALT Alkaline Phosphatase Lactate Dehydrogenase Troponin T C-Reactive Protein NT-Pro-B Natriuret Pep Total Protein Albumin LDL Cholesterol Direct Vitamin B12 Crossmatch See Detail 11/16/21 11/16/21 11/16/21 15:25 17:21 22:43 WBC RBC Hgb 8.6 L D Hct 27.7 L D MCV MCH MCHC RDW Plt Count Seg Neuts % (Manual) Lymphocytes % (Manual) Seg Neutrophils # Man Lymphocytes # (Manual) Monocytes # (Manual) PT INR D-Dimer ABG pH ABG pO2 ABG HCO3 ABG O2 Saturation ABG Base Excess ABG Hemoglobin Oxyhemoglobin Sodium 148 H Potassium Chloride 113.2 H Carbon Dioxide BUN 84 H Creatinine Glucose 164 H POC Glucose 124 H Lactic Acid Calcium 7.6 L Phosphorus Magnesium AST ALT Alkaline Phosphatase Lactate Dehydrogenase Troponin T C-Reactive Protein NT-Pro-B Natriuret Pep Total Protein Albumin LDL Cholesterol Direct Vitamin B12 Crossmatch 11/16/21 11/17/21 11/17/21 23:07 05:33 05:56 WBC 25.1 H RBC 3.47 L Hgb 8.7 L Hct 28.5 L MCV MCH 25 L MCHC RDW 22.3 H Plt Count Seg Neuts % (Manual) Lymphocytes % (Manual) Seg Neutrophils # Man Lymphocytes # (Manual) Monocytes # (Manual) PT INR D-Dimer ABG pH ABG pO2 ABG HCO3 ABG O2 Saturation ABG Base Excess ABG Hemoglobin Oxyhemoglobin Sodium Potassium Chloride Carbon Dioxide BUN Creatinine Glucose POC Glucose 128 H 133 H Lactic Acid Calcium Phosphorus Magnesium AST ALT Alkaline Phosphatase Lactate Dehydrogenase Troponin T C-Reactive Protein NT-Pro-B Natriuret Pep Total Protein Albumin LDL Cholesterol Direct Vitamin B12 Crossmatch 11/17/21 11/17/21 11/17/21 05:56 11:00 11:55 WBC RBC Hgb 8.3 L Hct 26.9 L MCV MCH MCHC RDW Plt Count Seg Neuts % (Manual) Lymphocytes % (Manual) Seg Neutrophils # Man Lymphocytes # (Manual) Monocytes # (Manual) PT INR D-Dimer ABG pH ABG pO2 ABG HCO3 ABG O2 Saturation ABG Base Excess ABG Hemoglobin Oxyhemoglobin Sodium 151 H Potassium Chloride 113.6 H Carbon Dioxide BUN 85 H Creatinine Glucose 132 H POC Glucose 121 H Lactic Acid Calcium 7.8 L Phosphorus Magnesium AST ALT Alkaline Phosphatase Lactate Dehydrogenase Troponin T C-Reactive Protein NT-Pro-B Natriuret Pep Total Protein 5.1 L Albumin 2.2 L LDL Cholesterol Direct Vitamin B12 Crossmatch 11/17/21 11/17/21 11/18/21 18:04 18:55 00:26 WBC RBC Hgb 7.5 L 7.1 L Hct 24.8 L 23.6 L MCV MCH MCHC RDW Plt Count Seg Neuts % (Manual) Lymphocytes % (Manual) Seg Neutrophils # Man Lymphocytes # (Manual) Monocytes # (Manual) PT INR D-Dimer ABG pH ABG pO2 ABG HCO3 ABG O2 Saturation ABG Base Excess ABG Hemoglobin Oxyhemoglobin Sodium Potassium Chloride Carbon Dioxide BUN Creatinine Glucose POC Glucose 144 H Lactic Acid Calcium Phosphorus Magnesium AST ALT Alkaline Phosphatase Lactate Dehydrogenase Troponin T C-Reactive Protein NT-Pro-B Natriuret Pep Total Protein Albumin LDL Cholesterol Direct Vitamin B12 Crossmatch 11/18/21 11/18/21 11/18/21 00:43 05:10 05:10 WBC 12.5 H RBC 2.39 L Hgb 6.1 L Hct 20.2 L MCV MCH 25 L MCHC RDW 23.2 H Plt Count Seg Neuts % (Manual) Lymphocytes % (Manual) Seg Neutrophils # Man Lymphocytes # (Manual) Monocytes # (Manual) PT INR D-Dimer ABG pH ABG pO2 ABG HCO3 ABG O2 Saturation ABG Base Excess ABG Hemoglobin Oxyhemoglobin Sodium 131 L D Potassium 2.9 L* D Chloride 97.8 L Carbon Dioxide BUN 58 H Creatinine Glucose 665 H* POC Glucose 139 H Lactic Acid Calcium 7.0 L Phosphorus 2.20 L D Magnesium 1.50 L AST ALT Alkaline Phosphatase Lactate Dehydrogenase Troponin T C-Reactive Protein NT-Pro-B Natriuret Pep Total Protein Albumin LDL Cholesterol Direct Vitamin B12 Crossmatch 11/18/21 11/18/21 11/18/21 05:23 07:10 10:45 WBC RBC Hgb Hct MCV MCH MCHC RDW Plt Count Seg Neuts % (Manual) Lymphocytes % (Manual) Seg Neutrophils # Man Lymphocytes # (Manual) Monocytes # (Manual) PT INR D-Dimer ABG pH ABG pO2 ABG HCO3 ABG O2 Saturation ABG Base Excess ABG Hemoglobin Oxyhemoglobin Sodium 148 H D Potassium 3.1 L Chloride 111.9 H Carbon Dioxide BUN 63 H Creatinine Glucose 141 H POC Glucose 124 H Lactic Acid Calcium 8.1 L D Phosphorus Magnesium AST ALT Alkaline Phosphatase Lactate Dehydrogenase Troponin T C-Reactive Protein NT-Pro-B Natriuret Pep Total Protein Albumin LDL Cholesterol Direct Vitamin B12 Crossmatch See Detail 11/18/21 11/19/21 11/19/21 11:57 00:19 04:55 WBC RBC 3.35 L Hgb 9.0 L 8.9 L Hct 28.3 L D 28.1 L MCV MCH 27 L MCHC RDW 20.3 H Plt Count Seg Neuts % (Manual) Lymphocytes % (Manual) Seg Neutrophils # Man Lymphocytes # (Manual) Monocytes # (Manual) PT INR D-Dimer ABG pH ABG pO2 ABG HCO3 ABG O2 Saturation ABG Base Excess ABG Hemoglobin Oxyhemoglobin Sodium Potassium Chloride Carbon Dioxide BUN Creatinine Glucose POC Glucose 119 H Lactic Acid Calcium Phosphorus Magnesium AST ALT Alkaline Phosphatase Lactate Dehydrogenase Troponin T C-Reactive Protein NT-Pro-B Natriuret Pep Total Protein Albumin LDL Cholesterol Direct Vitamin B12 Crossmatch 11/19/21 11/19/21 11/20/21 04:55 05:42 00:55 WBC RBC Hgb 9.0 L Hct 28.6 L MCV MCH MCHC RDW Plt Count Seg Neuts % (Manual) Lymphocytes % (Manual) Seg Neutrophils # Man Lymphocytes # (Manual) Monocytes # (Manual) PT INR D-Dimer ABG pH ABG pO2 ABG HCO3 ABG O2 Saturation ABG Base Excess ABG Hemoglobin Oxyhemoglobin Sodium Potassium 3.5 L Chloride 108.6 H Carbon Dioxide BUN 47 H Creatinine Glucose 207 H POC Glucose 63 L Lactic Acid Calcium 7.1 L Phosphorus Magnesium AST ALT Alkaline Phosphatase Lactate Dehydrogenase Troponin T C-Reactive Protein NT-Pro-B Natriuret Pep Total Protein Albumin LDL Cholesterol Direct Vitamin B12 Crossmatch 11/20/21 11/20/21 11/20/21 05:40 05:40 Unknown WBC RBC 3.40 L Hgb 9.1 L Hct 28.8 L MCV MCH 27 L MCHC RDW 20.7 H Plt Count Seg Neuts % (Manual) Lymphocytes % (Manual) Seg Neutrophils # Man Lymphocytes # (Manual) Monocytes # (Manual) PT INR D-Dimer ABG pH ABG pO2 ABG HCO3 ABG O2 Saturation ABG Base Excess -2.7 L ABG Hemoglobin 9.5 L Oxyhemoglobin 94.3 L Sodium Potassium 3.5 L Chloride 108.9 H Carbon Dioxide BUN 37 H Creatinine Glucose 117 H POC Glucose Lactic Acid Calcium 7.5 L Phosphorus Magnesium AST ALT Alkaline Phosphatase Lactate Dehydrogenase Troponin T C-Reactive Protein NT-Pro-B Natriuret Pep Total Protein Albumin LDL Cholesterol Direct Vitamin B12 Crossmatch 11/21/21 11/21/21 11/21/21 04:30 04:30 16:00 WBC RBC 3.25 L Hgb 8.6 L Hct 28.1 L MCV MCH 26 L MCHC RDW 20.7 H Plt Count Seg Neuts % (Manual) Lymphocytes % (Manual) Seg Neutrophils # Man Lymphocytes # (Manual) Monocytes # (Manual) PT INR D-Dimer ABG pH ABG pO2 114.2 H ABG HCO3 ABG O2 Saturation ABG Base Excess ABG Hemoglobin 9.1 L Oxyhemoglobin Sodium 134 L Potassium Chloride Carbon Dioxide 20 L BUN 34 H Creatinine Glucose POC Glucose Lactic Acid Calcium 7.1 L Phosphorus Magnesium AST ALT Alkaline Phosphatase Lactate Dehydrogenase Troponin T C-Reactive Protein NT-Pro-B Natriuret Pep Total Protein Albumin LDL Cholesterol Direct Vitamin B12 Crossmatch 11/22/21 11/22/21 11/22/21 07:07 07:07 23:54 WBC RBC 3.30 L Hgb 9.0 L Hct 28.5 L MCV MCH 27 L MCHC RDW 21.0 H Plt Count Seg Neuts % (Manual) Lymphocytes % (Manual) Seg Neutrophils # Man Lymphocytes # (Manual) Monocytes # (Manual) PT INR D-Dimer ABG pH ABG pO2 ABG HCO3 ABG O2 Saturation ABG Base Excess ABG Hemoglobin Oxyhemoglobin Sodium Potassium Chloride Carbon Dioxide BUN 32 H Creatinine Glucose 106 H POC Glucose 110 H Lactic Acid Calcium 7.5 L Phosphorus Magnesium AST ALT Alkaline Phosphatase Lactate Dehydrogenase Troponin T C-Reactive Protein NT-Pro-B Natriuret Pep Total Protein Albumin LDL Cholesterol Direct Vitamin B12 Crossmatch 11/23/21 11/23/21 11/23/21 04:38 04:38 06:01 WBC RBC 3.23 L Hgb 8.8 L Hct 28.0 L MCV MCH 27 L MCHC RDW 21.3 H Plt Count Seg Neuts % (Manual) Lymphocytes % (Manual) Seg Neutrophils # Man Lymphocytes # (Manual) Monocytes # (Manual) PT INR D-Dimer ABG pH ABG pO2 ABG HCO3 ABG O2 Saturation ABG Base Excess ABG Hemoglobin Oxyhemoglobin Sodium 136 L Potassium Chloride Carbon Dioxide 20 L BUN 32 H Creatinine Glucose 109 H POC Glucose 115 H Lactic Acid Calcium 7.7 L Phosphorus Magnesium AST ALT Alkaline Phosphatase Lactate Dehydrogenase Troponin T C-Reactive Protein NT-Pro-B Natriuret Pep Total Protein Albumin LDL Cholesterol Direct Vitamin B12 Crossmatch 11/23/21 11/24/21 11/24/21 11:40 00:03 04:13 WBC RBC 3.18 L Hgb 8.5 L Hct 27.5 L MCV MCH 27 L MCHC RDW 21.6 H Plt Count Seg Neuts % (Manual) Lymphocytes % (Manual) Seg Neutrophils # Man Lymphocytes # (Manual) Monocytes # (Manual) PT INR D-Dimer ABG pH ABG pO2 ABG HCO3 ABG O2 Saturation ABG Base Excess ABG Hemoglobin Oxyhemoglobin Sodium Potassium Chloride Carbon Dioxide BUN Creatinine Glucose POC Glucose 117 H 111 H Lactic Acid Calcium Phosphorus Magnesium AST ALT Alkaline Phosphatase Lactate Dehydrogenase Troponin T C-Reactive Protein NT-Pro-B Natriuret Pep Total Protein Albumin LDL Cholesterol Direct Vitamin B12 Crossmatch 11/24/21 11/24/21 11/24/21 04:13 05:30 11:10 WBC RBC Hgb Hct MCV MCH MCHC RDW Plt Count Seg Neuts % (Manual) Lymphocytes % (Manual) Seg Neutrophils # Man Lymphocytes # (Manual) Monocytes # (Manual) PT INR D-Dimer ABG pH ABG pO2 ABG HCO3 ABG O2 Saturation ABG Base Excess ABG Hemoglobin Oxyhemoglobin Sodium Potassium Chloride Carbon Dioxide BUN 31 H Creatinine Glucose 101 H POC Glucose 115 H 107 H Lactic Acid Calcium 7.7 L Phosphorus Magnesium AST ALT Alkaline Phosphatase Lactate Dehydrogenase Troponin T C-Reactive Protein NT-Pro-B Natriuret Pep Total Protein Albumin LDL Cholesterol Direct Vitamin B12 Crossmatch 11/24/21 11/24/21 11/25/21 16:34 17:57 05:12 WBC RBC 3.11 L Hgb 8.2 L Hct 26.6 L MCV MCH 26 L MCHC RDW 21.3 H Plt Count Seg Neuts % (Manual) Lymphocytes % (Manual) Seg Neutrophils # Man Lymphocytes # (Manual) Monocytes # (Manual) PT INR D-Dimer ABG pH ABG pO2 ABG HCO3 ABG O2 Saturation ABG Base Excess ABG Hemoglobin Oxyhemoglobin Sodium Potassium Chloride Carbon Dioxide BUN Creatinine Glucose POC Glucose 115 H 110 H Lactic Acid Calcium Phosphorus Magnesium AST ALT Alkaline Phosphatase Lactate Dehydrogenase Troponin T C-Reactive Protein NT-Pro-B Natriuret Pep Total Protein Albumin LDL Cholesterol Direct Vitamin B12 Crossmatch 11/25/21 11/25/21 11/26/21 05:12 11:20 05:00 WBC RBC 3.30 L Hgb 8.8 L Hct 28.2 L MCV MCH 27 L MCHC RDW 20.7 H Plt Count Seg Neuts % (Manual) Lymphocytes % (Manual) Seg Neutrophils # Man Lymphocytes # (Manual) Monocytes # (Manual) PT INR D-Dimer ABG pH ABG pO2 ABG HCO3 ABG O2 Saturation ABG Base Excess ABG Hemoglobin Oxyhemoglobin Sodium Potassium Chloride Carbon Dioxide BUN 32 H Creatinine Glucose 118 H POC Glucose 118 H Lactic Acid Calcium 8.2 L Phosphorus Magnesium AST ALT Alkaline Phosphatase Lactate Dehydrogenase Troponin T C-Reactive Protein NT-Pro-B Natriuret Pep Total Protein Albumin LDL Cholesterol Direct Vitamin B12 Crossmatch 11/26/21 11/26/21 11/26/21 05:00 05:00 05:44 WBC RBC Hgb Hct MCV MCH MCHC RDW Plt Count Seg Neuts % (Manual) Lymphocytes % (Manual) Seg Neutrophils # Man Lymphocytes # (Manual) Monocytes # (Manual) PT 16.9 H INR 1.24 H D-Dimer ABG pH ABG pO2 ABG HCO3 ABG O2 Saturation ABG Base Excess ABG Hemoglobin Oxyhemoglobin Sodium Potassium Chloride Carbon Dioxide BUN 31 H Creatinine Glucose 104 H POC Glucose 110 H Lactic Acid Calcium 7.9 L Phosphorus Magnesium AST ALT Alkaline Phosphatase Lactate Dehydrogenase Troponin T C-Reactive Protein NT-Pro-B Natriuret Pep Total Protein Albumin LDL Cholesterol Direct Vitamin B12 Crossmatch 11/26/21 11/27/21 11/27/21 23:55 07:40 07:40 WBC RBC 3.18 L Hgb 8.5 L Hct 27.0 L MCV MCH 27 L MCHC RDW 21.2 H Plt Count Seg Neuts % (Manual) Lymphocytes % (Manual) Seg Neutrophils # Man Lymphocytes # (Manual) Monocytes # (Manual) PT INR D-Dimer ABG pH ABG pO2 ABG HCO3 ABG O2 Saturation ABG Base Excess ABG Hemoglobin Oxyhemoglobin Sodium Potassium Chloride Carbon Dioxide BUN 27 H Creatinine Glucose 112 H POC Glucose 63 L Lactic Acid Calcium 7.6 L Phosphorus Magnesium AST ALT Alkaline Phosphatase Lactate Dehydrogenase Troponin T C-Reactive Protein NT-Pro-B Natriuret Pep Total Protein Albumin LDL Cholesterol Direct Vitamin B12 Crossmatch 11/27/21 11/27/21 11/27/21 12:04 13:40 13:40 WBC RBC 3.31 L Hgb 8.7 L Hct 28.0 L MCV MCH 26 L MCHC RDW 20.7 H Plt Count Seg Neuts % (Manual) Lymphocytes % (Manual) Seg Neutrophils # Man Lymphocytes # (Manual) Monocytes # (Manual) PT INR D-Dimer ABG pH ABG pO2 ABG HCO3 ABG O2 Saturation ABG Base Excess ABG Hemoglobin Oxyhemoglobin Sodium 136 L Potassium Chloride Carbon Dioxide BUN 25 H Creatinine Glucose 127 H POC Glucose 109 H Lactic Acid Calcium 7.6 L Phosphorus Magnesium 1.40 L AST ALT Alkaline Phosphatase Lactate Dehydrogenase Troponin T C-Reactive Protein NT-Pro-B Natriuret Pep Total Protein Albumin LDL Cholesterol Direct Vitamin B12 Crossmatch 11/27/21 11/27/21 11/28/21 17:44 23:33 12:20 WBC RBC Hgb Hct MCV MCH MCHC RDW Plt Count Seg Neuts % (Manual) Lymphocytes % (Manual) Seg Neutrophils # Man Lymphocytes # (Manual) Monocytes # (Manual) PT INR D-Dimer ABG pH ABG pO2 ABG HCO3 ABG O2 Saturation ABG Base Excess ABG Hemoglobin Oxyhemoglobin Sodium Potassium Chloride Carbon Dioxide BUN Creatinine Glucose POC Glucose 107 H 108 H 114 H Lactic Acid Calcium Phosphorus Magnesium AST ALT Alkaline Phosphatase Lactate Dehydrogenase Troponin T C-Reactive Protein NT-Pro-B Natriuret Pep Total Protein Albumin LDL Cholesterol Direct Vitamin B12 Crossmatch 11/29/21 11/29/21 11/29/21 00:09 03:20 03:20 WBC RBC 3.05 L Hgb 8.2 L Hct 25.8 L MCV MCH 27 L MCHC RDW 20.9 H Plt Count Seg Neuts % (Manual) Lymphocytes % (Manual) Seg Neutrophils # Man Lymphocytes # (Manual) Monocytes # (Manual) PT INR D-Dimer ABG pH ABG pO2 ABG HCO3 ABG O2 Saturation ABG Base Excess ABG Hemoglobin Oxyhemoglobin Sodium 133 L Potassium Chloride Carbon Dioxide BUN 24 H Creatinine Glucose 137 H POC Glucose 134 H Lactic Acid Calcium 7.4 L Phosphorus Magnesium AST ALT Alkaline Phosphatase Lactate Dehydrogenase Troponin T C-Reactive Protein NT-Pro-B Natriuret Pep Total Protein Albumin LDL Cholesterol Direct Vitamin B12 Crossmatch 11/29/21 11/29/21 11/29/21 05:38 11:39 17:11 WBC RBC Hgb Hct MCV MCH MCHC RDW Plt Count Seg Neuts % (Manual) Lymphocytes % (Manual) Seg Neutrophils # Man Lymphocytes # (Manual) Monocytes # (Manual) PT INR D-Dimer ABG pH ABG pO2 ABG HCO3 ABG O2 Saturation ABG Base Excess ABG Hemoglobin Oxyhemoglobin Sodium Potassium Chloride Carbon Dioxide BUN Creatinine Glucose POC Glucose 117 H 143 H 124 H Lactic Acid Calcium Phosphorus Magnesium AST ALT Alkaline Phosphatase Lactate Dehydrogenase Troponin T C-Reactive Protein NT-Pro-B Natriuret Pep Total Protein Albumin LDL Cholesterol Direct Vitamin B12 Crossmatch 11/29/21 11/30/21 11/30/21 20:15 05:40 05:40 WBC 12.6 H RBC 3.41 L Hgb 9.1 L Hct 28.9 L MCV MCH 27 L MCHC RDW 20.4 H Plt Count Seg Neuts % (Manual) Lymphocytes % (Manual) Seg Neutrophils # Man Lymphocytes # (Manual) Monocytes # (Manual) PT INR D-Dimer ABG pH ABG pO2 ABG HCO3 ABG O2 Saturation ABG Base Excess ABG Hemoglobin Oxyhemoglobin Sodium Potassium Chloride Carbon Dioxide BUN 24 H Creatinine Glucose 131 H POC Glucose Lactic Acid Calcium 7.6 L Phosphorus Magnesium AST ALT Alkaline Phosphatase Lactate Dehydrogenase Troponin T 0.045 H C-Reactive Protein NT-Pro-B Natriuret Pep Total Protein Albumin LDL Cholesterol Direct 25 L Vitamin B12 Crossmatch 11/30/21 11/30/21 12/01/21 11:29 16:51 05:00 WBC RBC 2.97 L Hgb 8.0 L Hct 25.0 L MCV MCH 27 L MCHC RDW 20.8 H Plt Count Seg Neuts % (Manual) Lymphocytes % (Manual) Seg Neutrophils # Man Lymphocytes # (Manual) Monocytes # (Manual) PT INR D-Dimer ABG pH ABG pO2 ABG HCO3 ABG O2 Saturation ABG Base Excess ABG Hemoglobin Oxyhemoglobin Sodium Potassium Chloride Carbon Dioxide BUN Creatinine Glucose POC Glucose 123 H 114 H Lactic Acid Calcium Phosphorus Magnesium AST ALT Alkaline Phosphatase Lactate Dehydrogenase Troponin T C-Reactive Protein NT-Pro-B Natriuret Pep Total Protein Albumin LDL Cholesterol Direct Vitamin B12 Crossmatch 12/01/21 12/01/21 12/01/21 05:00 05:25 11:54 WBC RBC Hgb Hct MCV MCH MCHC RDW Plt Count Seg Neuts % (Manual) Lymphocytes % (Manual) Seg Neutrophils # Man Lymphocytes # (Manual) Monocytes # (Manual) PT INR D-Dimer ABG pH ABG pO2 ABG HCO3 ABG O2 Saturation ABG Base Excess ABG Hemoglobin Oxyhemoglobin Sodium 136 L Potassium Chloride Carbon Dioxide BUN 24 H Creatinine Glucose 117 H POC Glucose 108 H 107 H Lactic Acid Calcium 7.5 L Phosphorus Magnesium 1.60 L AST ALT Alkaline Phosphatase Lactate Dehydrogenase Troponin T C-Reactive Protein NT-Pro-B Natriuret Pep Total Protein Albumin LDL Cholesterol Direct Vitamin B12 Crossmatch 12/01/21 12/02/21 12/02/21 17:40 00:07 04:20 WBC RBC 2.92 L Hgb 7.7 L Hct 24.3 L MCV MCH 26 L MCHC RDW 20.5 H Plt Count Seg Neuts % (Manual) Lymphocytes % (Manual) Seg Neutrophils # Man Lymphocytes # (Manual) Monocytes # (Manual) PT INR D-Dimer ABG pH ABG pO2 ABG HCO3 ABG O2 Saturation ABG Base Excess ABG Hemoglobin Oxyhemoglobin Sodium Potassium Chloride Carbon Dioxide BUN Creatinine Glucose POC Glucose 123 H 110 H Lactic Acid Calcium Phosphorus Magnesium AST ALT Alkaline Phosphatase Lactate Dehydrogenase Troponin T C-Reactive Protein NT-Pro-B Natriuret Pep Total Protein Albumin LDL Cholesterol Direct Vitamin B12 Crossmatch 12/02/21 12/02/21 12/02/21 04:20 11:17 18:20 WBC RBC Hgb Hct MCV MCH MCHC RDW Plt Count Seg Neuts % (Manual) Lymphocytes % (Manual) Seg Neutrophils # Man Lymphocytes # (Manual) Monocytes # (Manual) PT INR D-Dimer ABG pH ABG pO2 ABG HCO3 ABG O2 Saturation ABG Base Excess ABG Hemoglobin Oxyhemoglobin Sodium 135 L Potassium Chloride Carbon Dioxide BUN 26 H Creatinine Glucose 121 H POC Glucose 117 H 113 H Lactic Acid Calcium 7.4 L Phosphorus Magnesium AST ALT Alkaline Phosphatase Lactate Dehydrogenase Troponin T C-Reactive Protein NT-Pro-B Natriuret Pep Total Protein Albumin LDL Cholesterol Direct Vitamin B12 Crossmatch 12/03/21 12/03/21 12/03/21 00:12 04:00 04:00 WBC RBC 2.99 L Hgb 7.8 L Hct 24.6 L MCV MCH 26 L MCHC RDW 20.2 H Plt Count Seg Neuts % (Manual) Lymphocytes % (Manual) Seg Neutrophils # Man Lymphocytes # (Manual) Monocytes # (Manual) PT INR D-Dimer ABG pH ABG pO2 ABG HCO3 ABG O2 Saturation ABG Base Excess ABG Hemoglobin Oxyhemoglobin Sodium 136 L Potassium Chloride Carbon Dioxide BUN 27 H Creatinine Glucose 133 H POC Glucose 121 H Lactic Acid Calcium 7.5 L Phosphorus Magnesium AST ALT Alkaline Phosphatase Lactate Dehydrogenase Troponin T C-Reactive Protein NT-Pro-B Natriuret Pep Total Protein Albumin LDL Cholesterol Direct Vitamin B12 Crossmatch 12/03/21 12/03/21 12/03/21 06:30 11:13 16:00 WBC RBC Hgb Hct MCV MCH MCHC RDW Plt Count Seg Neuts % (Manual) Lymphocytes % (Manual) Seg Neutrophils # Man Lymphocytes # (Manual) Monocytes # (Manual) PT INR D-Dimer ABG pH ABG pO2 ABG HCO3 ABG O2 Saturation ABG Base Excess ABG Hemoglobin Oxyhemoglobin Sodium Potassium Chloride Carbon Dioxide BUN Creatinine Glucose POC Glucose 129 H 125 H 125 H Lactic Acid Calcium Phosphorus Magnesium AST ALT Alkaline Phosphatase Lactate Dehydrogenase Troponin T C-Reactive Protein NT-Pro-B Natriuret Pep Total Protein Albumin LDL Cholesterol Direct Vitamin B12 Crossmatch 12/03/21 12/04/21 12/04/21 23:32 04:00 05:36 WBC RBC Hgb Hct MCV MCH MCHC RDW Plt Count Seg Neuts % (Manual) Lymphocytes % (Manual) Seg Neutrophils # Man Lymphocytes # (Manual) Monocytes # (Manual) PT INR D-Dimer ABG pH ABG pO2 ABG HCO3 ABG O2 Saturation ABG Base Excess ABG Hemoglobin Oxyhemoglobin Sodium Potassium 3.5 L Chloride Carbon Dioxide BUN 26 H Creatinine 0.5 L Glucose 151 H POC Glucose 133 H 142 H Lactic Acid Calcium 8.3 L Phosphorus Magnesium AST ALT Alkaline Phosphatase Lactate Dehydrogenase Troponin T C-Reactive Protein NT-Pro-B Natriuret Pep Total Protein Albumin LDL Cholesterol Direct Vitamin B12 Crossmatch 12/04/21 12/04/21 12/05/21 11:24 15:58 04:36 WBC RBC Hgb Hct MCV MCH MCHC RDW Plt Count Seg Neuts % (Manual) Lymphocytes % (Manual) Seg Neutrophils # Man Lymphocytes # (Manual) Monocytes # (Manual) PT INR D-Dimer ABG pH ABG pO2 ABG HCO3 ABG O2 Saturation ABG Base Excess ABG Hemoglobin Oxyhemoglobin Sodium Potassium Chloride Carbon Dioxide BUN 21 H Creatinine 0.5 L Glucose 119 H POC Glucose 130 H 111 H Lactic Acid Calcium 8.3 L Phosphorus Magnesium AST ALT Alkaline Phosphatase Lactate Dehydrogenase Troponin T C-Reactive Protein NT-Pro-B Natriuret Pep Total Protein Albumin LDL Cholesterol Direct Vitamin B12 Crossmatch 12/05/21 12/05/21 12/05/21 05:15 10:40 11:12 WBC RBC 2.98 L Hgb 8.1 L Hct 24.6 L MCV MCH 27 L MCHC RDW 20.8 H Plt Count Seg Neuts % (Manual) Lymphocytes % (Manual) Seg Neutrophils # Man Lymphocytes # (Manual) Monocytes # (Manual) PT INR D-Dimer ABG pH ABG pO2 ABG HCO3 ABG O2 Saturation ABG Base Excess ABG Hemoglobin Oxyhemoglobin Sodium Potassium Chloride Carbon Dioxide BUN Creatinine Glucose POC Glucose 107 H 110 H Lactic Acid Calcium Phosphorus Magnesium AST ALT Alkaline Phosphatase Lactate Dehydrogenase Troponin T C-Reactive Protein NT-Pro-B Natriuret Pep Total Protein Albumin LDL Cholesterol Direct Vitamin B12 Crossmatch 12/05/21 12/06/21 12/06/21 23:39 04:25 04:25 WBC RBC 2.95 L Hgb 7.9 L Hct 24.7 L MCV MCH 27 L MCHC RDW 20.9 H Plt Count Seg Neuts % (Manual) Lymphocytes % (Manual) Seg Neutrophils # Man Lymphocytes # (Manual) Monocytes # (Manual) PT INR D-Dimer ABG pH ABG pO2 ABG HCO3 ABG O2 Saturation ABG Base Excess ABG Hemoglobin Oxyhemoglobin Sodium Potassium Chloride Carbon Dioxide BUN 22 H Creatinine 0.5 L Glucose 136 H POC Glucose 118 H Lactic Acid Calcium 8.2 L Phosphorus Magnesium AST ALT Alkaline Phosphatase Lactate Dehydrogenase Troponin T C-Reactive Protein NT-Pro-B Natriuret Pep Total Protein Albumin LDL Cholesterol Direct Vitamin B12 Crossmatch 12/06/21 12/06/21 12/07/21 05:28 11:27 04:00 WBC RBC Hgb 7.2 L Hct 21.8 L MCV MCH MCHC RDW Plt Count Seg Neuts % (Manual) Lymphocytes % (Manual) Seg Neutrophils # Man Lymphocytes # (Manual) Monocytes # (Manual) PT INR D-Dimer ABG pH ABG pO2 ABG HCO3 ABG O2 Saturation ABG Base Excess ABG Hemoglobin Oxyhemoglobin Sodium Potassium Chloride Carbon Dioxide BUN Creatinine Glucose POC Glucose 142 H 126 H Lactic Acid Calcium Phosphorus Magnesium AST ALT Alkaline Phosphatase Lactate Dehydrogenase Troponin T C-Reactive Protein NT-Pro-B Natriuret Pep Total Protein Albumin LDL Cholesterol Direct Vitamin B12 Crossmatch 12/07/21 12/07/21 12/07/21 04:00 05:30 11:12 WBC RBC Hgb Hct MCV MCH MCHC RDW Plt Count Seg Neuts % (Manual) Lymphocytes % (Manual) Seg Neutrophils # Man Lymphocytes # (Manual) Monocytes # (Manual) PT INR D-Dimer ABG pH ABG pO2 ABG HCO3 ABG O2 Saturation ABG Base Excess ABG Hemoglobin Oxyhemoglobin Sodium Potassium Chloride Carbon Dioxide BUN 22 H Creatinine Glucose 119 H POC Glucose 121 H 124 H Lactic Acid Calcium 8.0 L Phosphorus Magnesium AST ALT Alkaline Phosphatase Lactate Dehydrogenase Troponin T C-Reactive Protein NT-Pro-B Natriuret Pep Total Protein Albumin LDL Cholesterol Direct Vitamin B12 Crossmatch 12/08/21 12/08/21 12/08/21 04:00 04:00 05:39 WBC RBC 2.81 L Hgb 7.7 L Hct 23.5 L MCV MCH MCHC RDW 21.2 H Plt Count Seg Neuts % (Manual) Lymphocytes % (Manual) Seg Neutrophils # Man Lymphocytes # (Manual) Monocytes # (Manual) PT INR D-Dimer ABG pH ABG pO2 ABG HCO3 ABG O2 Saturation ABG Base Excess ABG Hemoglobin Oxyhemoglobin Sodium 135 L Potassium Chloride Carbon Dioxide BUN 23 H Creatinine Glucose 109 H POC Glucose 112 H Lactic Acid Calcium Phosphorus Magnesium AST ALT Alkaline Phosphatase Lactate Dehydrogenase Troponin T C-Reactive Protein NT-Pro-B Natriuret Pep Total Protein Albumin LDL Cholesterol Direct Vitamin B12 Crossmatch 12/08/21 12/09/21 12/09/21 11:03 04:20 04:20 WBC RBC 2.67 L Hgb 7.6 L Hct 22.1 L MCV MCH MCHC RDW 20.8 H Plt Count Seg Neuts % (Manual) Lymphocytes % (Manual) Seg Neutrophils # Man Lymphocytes # (Manual) Monocytes # (Manual) PT INR D-Dimer ABG pH ABG pO2 ABG HCO3 ABG O2 Saturation ABG Base Excess ABG Hemoglobin Oxyhemoglobin Sodium 135 L Potassium Chloride 97.8 L Carbon Dioxide BUN 26 H Creatinine Glucose 119 H POC Glucose 108 H Lactic Acid Calcium 7.7 L Phosphorus Magnesium AST ALT Alkaline Phosphatase Lactate Dehydrogenase Troponin T C-Reactive Protein NT-Pro-B Natriuret Pep Total Protein Albumin LDL Cholesterol Direct Vitamin B12 Crossmatch 12/09/21 12/10/21 12/10/21 11:26 04:33 11:12 WBC RBC Hgb Hct MCV MCH MCHC RDW Plt Count Seg Neuts % (Manual) Lymphocytes % (Manual) Seg Neutrophils # Man Lymphocytes # (Manual) Monocytes # (Manual) PT INR D-Dimer ABG pH ABG pO2 ABG HCO3 ABG O2 Saturation ABG Base Excess ABG Hemoglobin Oxyhemoglobin Sodium 136 L Potassium Chloride Carbon Dioxide BUN 27 H Creatinine Glucose 117 H POC Glucose 110 H 117 H Lactic Acid Calcium 8.2 L Phosphorus Magnesium AST ALT Alkaline Phosphatase Lactate Dehydrogenase Troponin T C-Reactive Protein NT-Pro-B Natriuret Pep Total Protein Albumin LDL Cholesterol Direct Vitamin B12 Crossmatch 12/10/21 12/10/21 12/11/21 16:02 23:31 04:35 WBC RBC 2.57 L Hgb 7.0 L Hct 21.4 L MCV MCH 27 L MCHC RDW 21.1 H Plt Count Seg Neuts % (Manual) Lymphocytes % (Manual) Seg Neutrophils # Man Lymphocytes # (Manual) Monocytes # (Manual) PT INR D-Dimer ABG pH ABG pO2 ABG HCO3 ABG O2 Saturation ABG Base Excess ABG Hemoglobin Oxyhemoglobin Sodium Potassium Chloride Carbon Dioxide BUN Creatinine Glucose POC Glucose 137 H 111 H Lactic Acid Calcium Phosphorus Magnesium AST ALT Alkaline Phosphatase Lactate Dehydrogenase Troponin T C-Reactive Protein NT-Pro-B Natriuret Pep Total Protein Albumin LDL Cholesterol Direct Vitamin B12 Crossmatch 12/11/21 12/11/21 12/11/21 04:35 12:46 16:07 WBC RBC Hgb Hct MCV MCH MCHC RDW Plt Count Seg Neuts % (Manual) Lymphocytes % (Manual) Seg Neutrophils # Man Lymphocytes # (Manual) Monocytes # (Manual) PT INR D-Dimer ABG pH ABG pO2 ABG HCO3 ABG O2 Saturation ABG Base Excess ABG Hemoglobin Oxyhemoglobin Sodium 136 L Potassium Chloride Carbon Dioxide BUN 27 H Creatinine Glucose 112 H POC Glucose 115 H 111 H Lactic Acid Calcium 7.6 L Phosphorus Magnesium AST ALT Alkaline Phosphatase Lactate Dehydrogenase Troponin T C-Reactive Protein NT-Pro-B Natriuret Pep Total Protein Albumin LDL Cholesterol Direct Vitamin B12 Crossmatch 12/11/21 12/12/21 12/12/21 23:42 04:30 04:30 WBC RBC 2.60 L Hgb 7.1 L Hct 21.5 L MCV MCH 27 L MCHC RDW 20.3 H Plt Count Seg Neuts % (Manual) Lymphocytes % (Manual) Seg Neutrophils # Man Lymphocytes # (Manual) Monocytes # (Manual) PT INR D-Dimer ABG pH ABG pO2 ABG HCO3 ABG O2 Saturation ABG Base Excess ABG Hemoglobin Oxyhemoglobin Sodium 135 L Potassium Chloride 97.9 L Carbon Dioxide BUN 26 H Creatinine 0.5 L Glucose 138 H POC Glucose 115 H Lactic Acid Calcium 8.2 L Phosphorus Magnesium AST ALT Alkaline Phosphatase Lactate Dehydrogenase Troponin T C-Reactive Protein NT-Pro-B Natriuret Pep Total Protein Albumin LDL Cholesterol Direct Vitamin B12 Crossmatch 12/12/21 12/12/21 12/12/21 04:30 05:10 11:51 WBC RBC Hgb Hct MCV MCH MCHC RDW Plt Count Seg Neuts % (Manual) Lymphocytes % (Manual) Seg Neutrophils # Man Lymphocytes # (Manual) Monocytes # (Manual) PT INR D-Dimer ABG pH ABG pO2 ABG HCO3 ABG O2 Saturation ABG Base Excess ABG Hemoglobin Oxyhemoglobin Sodium Potassium Chloride Carbon Dioxide BUN Creatinine Glucose POC Glucose 119 H 119 H Lactic Acid Calcium Phosphorus Magnesium AST ALT Alkaline Phosphatase Lactate Dehydrogenase Troponin T C-Reactive Protein NT-Pro-B Natriuret Pep Total Protein Albumin LDL Cholesterol Direct Vitamin B12 Crossmatch See Detail 12/13/21 12/13/21 12/13/21 00:52 04:00 04:00 WBC RBC 2.73 L Hgb 7.4 L Hct 22.8 L MCV MCH 27 L MCHC RDW 20.5 H Plt Count Seg Neuts % (Manual) Lymphocytes % (Manual) Seg Neutrophils # Man Lymphocytes # (Manual) Monocytes # (Manual) PT INR D-Dimer ABG pH ABG pO2 ABG HCO3 ABG O2 Saturation ABG Base Excess ABG Hemoglobin Oxyhemoglobin Sodium 134 L Potassium Chloride 96.7 L Carbon Dioxide BUN 23 H Creatinine 0.5 L Glucose 131 H POC Glucose 131 H Lactic Acid Calcium 8.1 L Phosphorus Magnesium AST ALT Alkaline Phosphatase Lactate Dehydrogenase Troponin T C-Reactive Protein NT-Pro-B Natriuret Pep Total Protein Albumin LDL Cholesterol Direct Vitamin B12 Crossmatch 12/13/21 12/13/21 12/13/21 05:23 12:11 17:18 WBC RBC Hgb Hct MCV MCH MCHC RDW Plt Count Seg Neuts % (Manual) Lymphocytes % (Manual) Seg Neutrophils # Man Lymphocytes # (Manual) Monocytes # (Manual) PT INR D-Dimer ABG pH ABG pO2 ABG HCO3 ABG O2 Saturation ABG Base Excess ABG Hemoglobin Oxyhemoglobin Sodium Potassium Chloride Carbon Dioxide BUN Creatinine Glucose POC Glucose 121 H 143 H 148 H Lactic Acid Calcium Phosphorus Magnesium AST ALT Alkaline Phosphatase Lactate Dehydrogenase Troponin T C-Reactive Protein NT-Pro-B Natriuret Pep Total Protein Albumin LDL Cholesterol Direct Vitamin B12 Crossmatch 12/14/21 12/14/21 12/14/21 00:54 04:20 04:20 WBC RBC 2.39 L Hgb 6.5 L Hct 20.3 L MCV MCH 27 L MCHC RDW 20.3 H Plt Count Seg Neuts % (Manual) Lymphocytes % (Manual) Seg Neutrophils # Man Lymphocytes # (Manual) Monocytes # (Manual) PT INR D-Dimer ABG pH ABG pO2 ABG HCO3 ABG O2 Saturation ABG Base Excess ABG Hemoglobin Oxyhemoglobin Sodium 130 L Potassium Chloride 93.5 L Carbon Dioxide BUN 25 H Creatinine Glucose 123 H POC Glucose 123 H Lactic Acid Calcium 8.0 L Phosphorus Magnesium AST ALT Alkaline Phosphatase Lactate Dehydrogenase Troponin T C-Reactive Protein NT-Pro-B Natriuret Pep Total Protein Albumin LDL Cholesterol Direct Vitamin B12 Crossmatch 12/14/21 12/14/21 12/14/21 05:06 08:17 10:30 WBC RBC Hgb Hct MCV MCH MCHC RDW Plt Count Seg Neuts % (Manual) Lymphocytes % (Manual) Seg Neutrophils # Man Lymphocytes # (Manual) Monocytes # (Manual) PT INR D-Dimer ABG pH ABG pO2 ABG HCO3 ABG O2 Saturation ABG Base Excess ABG Hemoglobin Oxyhemoglobin Sodium Potassium Chloride Carbon Dioxide BUN Creatinine Glucose POC Glucose 131 H 119 H Lactic Acid Calcium Phosphorus Magnesium AST ALT Alkaline Phosphatase Lactate Dehydrogenase Troponin T C-Reactive Protein NT-Pro-B Natriuret Pep Total Protein Albumin LDL Cholesterol Direct Vitamin B12 Crossmatch See Detail 12/14/21 12/14/21 12/14/21 12:15 16:37 23:27 WBC RBC Hgb Hct MCV MCH MCHC RDW Plt Count Seg Neuts % (Manual) Lymphocytes % (Manual) Seg Neutrophils # Man Lymphocytes # (Manual) Monocytes # (Manual) PT INR D-Dimer ABG pH ABG pO2 ABG HCO3 ABG O2 Saturation ABG Base Excess ABG Hemoglobin Oxyhemoglobin Sodium Potassium Chloride Carbon Dioxide BUN Creatinine Glucose POC Glucose 147 H 141 H 130 H Lactic Acid Calcium Phosphorus Magnesium AST ALT Alkaline Phosphatase Lactate Dehydrogenase Troponin T C-Reactive Protein NT-Pro-B Natriuret Pep Total Protein Albumin LDL Cholesterol Direct Vitamin B12 Crossmatch 12/15/21 12/15/21 12/15/21 05:00 07:00 07:00 WBC 12.3 H RBC 3.27 L Hgb 8.8 L Hct 27.5 L D MCV MCH 27 L MCHC RDW 19.0 H Plt Count Seg Neuts % (Manual) Lymphocytes % (Manual) Seg Neutrophils # Man Lymphocytes # (Manual) Monocytes # (Manual) PT INR D-Dimer ABG pH ABG pO2 ABG HCO3 ABG O2 Saturation ABG Base Excess ABG Hemoglobin Oxyhemoglobin Sodium 134 L Potassium Chloride 95.7 L Carbon Dioxide BUN 28 H Creatinine Glucose 129 H POC Glucose 129 H Lactic Acid Calcium 8.2 L Phosphorus Magnesium AST ALT Alkaline Phosphatase Lactate Dehydrogenase Troponin T C-Reactive Protein NT-Pro-B Natriuret Pep Total Protein Albumin LDL Cholesterol Direct Vitamin B12 Crossmatch 12/15/21 12/15/21 12/15/21 11:18 16:00 23:39 WBC RBC Hgb Hct MCV MCH MCHC RDW Plt Count Seg Neuts % (Manual) Lymphocytes % (Manual) Seg Neutrophils # Man Lymphocytes # (Manual) Monocytes # (Manual) PT INR D-Dimer ABG pH ABG pO2 ABG HCO3 ABG O2 Saturation ABG Base Excess ABG Hemoglobin Oxyhemoglobin Sodium Potassium Chloride Carbon Dioxide BUN Creatinine Glucose POC Glucose 139 H 137 H 146 H Lactic Acid Calcium Phosphorus Magnesium AST ALT Alkaline Phosphatase Lactate Dehydrogenase Troponin T C-Reactive Protein NT-Pro-B Natriuret Pep Total Protein Albumin LDL Cholesterol Direct Vitamin B12 Crossmatch 12/16/21 12/16/21 12/16/21 05:24 10:21 10:21 WBC 15.3 H RBC 3.24 L Hgb 8.9 L Hct 27.7 L MCV MCH MCHC RDW 19.0 H Plt Count Seg Neuts % (Manual) Lymphocytes % (Manual) Seg Neutrophils # Man Lymphocytes # (Manual) Monocytes # (Manual) PT INR D-Dimer ABG pH ABG pO2 ABG HCO3 ABG O2 Saturation ABG Base Excess ABG Hemoglobin Oxyhemoglobin Sodium 131 L Potassium 3.5 L Chloride 92.7 L Carbon Dioxide BUN 36 H Creatinine Glucose 160 H POC Glucose 121 H Lactic Acid Calcium Phosphorus Magnesium 1.60 L AST ALT Alkaline Phosphatase Lactate Dehydrogenase Troponin T C-Reactive Protein NT-Pro-B Natriuret Pep Total Protein Albumin LDL Cholesterol Direct Vitamin B12 Crossmatch 12/16/21 12/16/21 12/16/21 11:21 18:28 20:52 WBC RBC Hgb Hct MCV MCH MCHC RDW Plt Count Seg Neuts % (Manual) Lymphocytes % (Manual) Seg Neutrophils # Man Lymphocytes # (Manual) Monocytes # (Manual) PT INR D-Dimer ABG pH 7.479 H ABG pO2 79.3 L ABG HCO3 27.3 H ABG O2 Saturation ABG Base Excess 3.6 H ABG Hemoglobin 9.1 L Oxyhemoglobin 94.9 L Sodium Potassium Chloride Carbon Dioxide BUN Creatinine Glucose POC Glucose 153 H 132 H Lactic Acid Calcium Phosphorus Magnesium AST ALT Alkaline Phosphatase Lactate Dehydrogenase Troponin T C-Reactive Protein NT-Pro-B Natriuret Pep Total Protein Albumin LDL Cholesterol Direct Vitamin B12 Crossmatch 12/16/21 12/17/21 12/17/21 23:30 04:25 04:25 WBC 12.3 H RBC 2.16 L Hgb 6.0 L Hct 18.1 L* D MCV MCH MCHC RDW 19.4 H Plt Count Seg Neuts % (Manual) Lymphocytes % (Manual) Seg Neutrophils # Man Lymphocytes # (Manual) Monocytes # (Manual) PT INR D-Dimer ABG pH ABG pO2 ABG HCO3 ABG O2 Saturation ABG Base Excess ABG Hemoglobin Oxyhemoglobin Sodium 132 L Potassium 3.2 L Chloride 112.0 H Carbon Dioxide BUN 32 H Creatinine Glucose 122 H POC Glucose 137 H Lactic Acid Calcium 6.8 L D Phosphorus Magnesium AST ALT Alkaline Phosphatase Lactate Dehydrogenase Troponin T C-Reactive Protein NT-Pro-B Natriuret Pep Total Protein Albumin LDL Cholesterol Direct Vitamin B12 Crossmatch 12/17/21 12/17/21 12/17/21 05:30 11:49 14:45 WBC RBC Hgb 9.7 L D Hct MCV MCH MCHC RDW Plt Count Seg Neuts % (Manual) Lymphocytes % (Manual) Seg Neutrophils # Man Lymphocytes # (Manual) Monocytes # (Manual) PT INR D-Dimer ABG pH ABG pO2 ABG HCO3 ABG O2 Saturation ABG Base Excess ABG Hemoglobin Oxyhemoglobin Sodium Potassium Chloride Carbon Dioxide BUN Creatinine Glucose POC Glucose 137 H 143 H Lactic Acid Calcium Phosphorus Magnesium AST ALT Alkaline Phosphatase Lactate Dehydrogenase Troponin T C-Reactive Protein NT-Pro-B Natriuret Pep Total Protein Albumin LDL Cholesterol Direct Vitamin B12 Crossmatch 12/17/21 12/18/21 12/18/21 17:01 05:04 05:04 WBC 13.8 H RBC 3.44 L Hgb 9.9 L Hct 28.8 L MCV MCH MCHC RDW 18.1 H Plt Count Seg Neuts % (Manual) Lymphocytes % (Manual) Seg Neutrophils # Man Lymphocytes # (Manual) Monocytes # (Manual) PT INR D-Dimer ABG pH ABG pO2 ABG HCO3 ABG O2 Saturation ABG Base Excess ABG Hemoglobin Oxyhemoglobin Sodium 132 L Potassium Chloride 97.4 L Carbon Dioxide BUN 38 H Creatinine Glucose 134 H POC Glucose 132 H Lactic Acid Calcium Phosphorus Magnesium AST ALT Alkaline Phosphatase Lactate Dehydrogenase Troponin T C-Reactive Protein NT-Pro-B Natriuret Pep Total Protein Albumin LDL Cholesterol Direct Vitamin B12 Crossmatch 12/18/21 12/18/21 12/18/21 05:28 10:57 16:27 WBC RBC Hgb Hct MCV MCH MCHC RDW Plt Count Seg Neuts % (Manual) Lymphocytes % (Manual) Seg Neutrophils # Man Lymphocytes # (Manual) Monocytes # (Manual) PT INR D-Dimer ABG pH ABG pO2 ABG HCO3 ABG O2 Saturation ABG Base Excess ABG Hemoglobin Oxyhemoglobin Sodium Potassium Chloride Carbon Dioxide BUN Creatinine Glucose POC Glucose 118 H 132 H 130 H Lactic Acid Calcium Phosphorus Magnesium AST ALT Alkaline Phosphatase Lactate Dehydrogenase Troponin T C-Reactive Protein NT-Pro-B Natriuret Pep Total Protein Albumin LDL Cholesterol Direct Vitamin B12 Crossmatch 12/19/21 12/19/21 12/19/21 00:02 04:41 04:41 WBC 16.0 H RBC 3.45 L Hgb 9.7 L Hct 29.1 L MCV MCH MCHC RDW 17.8 H Plt Count Seg Neuts % (Manual) Lymphocytes % (Manual) Seg Neutrophils # Man Lymphocytes # (Manual) Monocytes # (Manual) PT INR D-Dimer ABG pH ABG pO2 ABG HCO3 ABG O2 Saturation ABG Base Excess ABG Hemoglobin Oxyhemoglobin Sodium 133 L Potassium Chloride 97.9 L Carbon Dioxide BUN 36 H Creatinine 0.5 L Glucose 126 H POC Glucose 127 H Lactic Acid Calcium 8.3 L Phosphorus Magnesium AST ALT Alkaline Phosphatase Lactate Dehydrogenase Troponin T C-Reactive Protein NT-Pro-B Natriuret Pep Total Protein Albumin LDL Cholesterol Direct Vitamin B12 Crossmatch 12/19/21 12/19/21 12/19/21 05:26 12:20 16:43 WBC RBC Hgb Hct MCV MCH MCHC RDW Plt Count Seg Neuts % (Manual) Lymphocytes % (Manual) Seg Neutrophils # Man Lymphocytes # (Manual) Monocytes # (Manual) PT INR D-Dimer ABG pH ABG pO2 ABG HCO3 ABG O2 Saturation ABG Base Excess ABG Hemoglobin Oxyhemoglobin Sodium Potassium Chloride Carbon Dioxide BUN Creatinine Glucose POC Glucose 119 H 145 H 126 H Lactic Acid Calcium Phosphorus Magnesium AST ALT Alkaline Phosphatase Lactate Dehydrogenase Troponin T C-Reactive Protein NT-Pro-B Natriuret Pep Total Protein Albumin LDL Cholesterol Direct Vitamin B12 Crossmatch 12/19/21 12/20/21 12/20/21 23:30 04:54 04:54 WBC 12.3 H RBC 3.54 L Hgb 10.0 L Hct 29.5 L MCV MCH MCHC RDW 17.8 H Plt Count Seg Neuts % (Manual) 88.0 H Lymphocytes % (Manual) 6.0 L Seg Neutrophils # Man 10.8 H Lymphocytes # (Manual) 0.7 L Monocytes # (Manual) PT INR D-Dimer ABG pH ABG pO2 ABG HCO3 ABG O2 Saturation ABG Base Excess ABG Hemoglobin Oxyhemoglobin Sodium 131 L Potassium Chloride 96.2 L Carbon Dioxide BUN 36 H Creatinine 0.5 L Glucose 130 H POC Glucose 117 H Lactic Acid Calcium Phosphorus Magnesium AST ALT Alkaline Phosphatase Lactate Dehydrogenase Troponin T C-Reactive Protein NT-Pro-B Natriuret Pep Total Protein Albumin LDL Cholesterol Direct Vitamin B12 Crossmatch 12/20/21 12/20/21 12/20/21 05:20 11:51 17:30 WBC RBC Hgb Hct MCV MCH MCHC RDW Plt Count Seg Neuts % (Manual) Lymphocytes % (Manual) Seg Neutrophils # Man Lymphocytes # (Manual) Monocytes # (Manual) PT INR D-Dimer ABG pH ABG pO2 ABG HCO3 ABG O2 Saturation ABG Base Excess ABG Hemoglobin Oxyhemoglobin Sodium Potassium Chloride Carbon Dioxide BUN Creatinine Glucose POC Glucose 126 H 119 H 127 H Lactic Acid Calcium Phosphorus Magnesium AST ALT Alkaline Phosphatase Lactate Dehydrogenase Troponin T C-Reactive Protein NT-Pro-B Natriuret Pep Total Protein Albumin LDL Cholesterol Direct Vitamin B12 Crossmatch 12/21/21 12/21/21 12/21/21 00:45 04:21 04:21 WBC RBC 3.47 L Hgb 9.4 L Hct 29.2 L MCV MCH 27 L MCHC RDW 18.1 H Plt Count Seg Neuts % (Manual) Lymphocytes % (Manual) Seg Neutrophils # Man Lymphocytes # (Manual) Monocytes # (Manual) PT INR D-Dimer ABG pH ABG pO2 ABG HCO3 ABG O2 Saturation ABG Base Excess ABG Hemoglobin Oxyhemoglobin Sodium 134 L Potassium Chloride Carbon Dioxide BUN 35 H Creatinine 0.5 L Glucose 122 H POC Glucose 125 H Lactic Acid Calcium 8.2 L Phosphorus Magnesium AST ALT Alkaline Phosphatase Lactate Dehydrogenase Troponin T C-Reactive Protein NT-Pro-B Natriuret Pep Total Protein Albumin LDL Cholesterol Direct Vitamin B12 Crossmatch 12/21/21 12/21/21 12/21/21 05:38 11:29 16:16 WBC RBC Hgb Hct MCV MCH MCHC RDW Plt Count Seg Neuts % (Manual) Lymphocytes % (Manual) Seg Neutrophils # Man Lymphocytes # (Manual) Monocytes # (Manual) PT INR D-Dimer ABG pH ABG pO2 ABG HCO3 ABG O2 Saturation ABG Base Excess ABG Hemoglobin Oxyhemoglobin Sodium Potassium Chloride Carbon Dioxide BUN Creatinine Glucose POC Glucose 127 H 121 H 113 H Lactic Acid Calcium Phosphorus Magnesium AST ALT Alkaline Phosphatase Lactate Dehydrogenase Troponin T C-Reactive Protein NT-Pro-B Natriuret Pep Total Protein Albumin LDL Cholesterol Direct Vitamin B12 Crossmatch 12/22/21 12/22/21 12/23/21 04:58 04:58 06:40 WBC 11.5 H RBC 3.43 L Hgb 9.8 L Hct 28.7 L MCV MCH MCHC RDW 18.5 H 17.9 H Plt Count Seg Neuts % (Manual) Lymphocytes % (Manual) Seg Neutrophils # Man Lymphocytes # (Manual) Monocytes # (Manual) PT INR D-Dimer ABG pH ABG pO2 ABG HCO3 ABG O2 Saturation ABG Base Excess ABG Hemoglobin Oxyhemoglobin Sodium 130 L Potassium Chloride 97.8 L Carbon Dioxide BUN 31 H Creatinine 0.5 L Glucose 122 H POC Glucose Lactic Acid Calcium 7.9 L Phosphorus Magnesium AST ALT Alkaline Phosphatase Lactate Dehydrogenase Troponin T C-Reactive Protein NT-Pro-B Natriuret Pep Total Protein Albumin LDL Cholesterol Direct Vitamin B12 Crossmatch 12/23/21 12/23/21 12/24/21 06:40 23:25 04:24 WBC 11.7 H RBC Hgb 9.8 L Hct MCV MCH 26 L MCHC RDW 18.1 H Plt Count Seg Neuts % (Manual) Lymphocytes % (Manual) Seg Neutrophils # Man Lymphocytes # (Manual) Monocytes # (Manual) PT INR D-Dimer ABG pH ABG pO2 ABG HCO3 ABG O2 Saturation ABG Base Excess ABG Hemoglobin Oxyhemoglobin Sodium 136 L Potassium Chloride Carbon Dioxide BUN 27 H Creatinine 0.4 L Glucose 107 H POC Glucose 110 H Lactic Acid Calcium 8.1 L Phosphorus Magnesium AST ALT Alkaline Phosphatase Lactate Dehydrogenase Troponin T C-Reactive Protein NT-Pro-B Natriuret Pep Total Protein Albumin LDL Cholesterol Direct Vitamin B12 Crossmatch 12/24/21 12/24/21 12/24/21 04:24 11:08 15:45 WBC RBC Hgb Hct MCV MCH MCHC RDW Plt Count Seg Neuts % (Manual) Lymphocytes % (Manual) Seg Neutrophils # Man Lymphocytes # (Manual) Monocytes # (Manual) PT INR D-Dimer ABG pH ABG pO2 ABG HCO3 ABG O2 Saturation ABG Base Excess ABG Hemoglobin Oxyhemoglobin Sodium 132 L Potassium Chloride Carbon Dioxide BUN 27 H Creatinine 0.3 L Glucose 108 H POC Glucose 116 H 107 H Lactic Acid Calcium Phosphorus Magnesium AST ALT Alkaline Phosphatase Lactate Dehydrogenase Troponin T C-Reactive Protein NT-Pro-B Natriuret Pep Total Protein Albumin LDL Cholesterol Direct Vitamin B12 Crossmatch 12/24/21 12/25/21 12/25/21 23:43 05:29 11:48 WBC RBC Hgb Hct MCV MCH MCHC RDW Plt Count Seg Neuts % (Manual) Lymphocytes % (Manual) Seg Neutrophils # Man Lymphocytes # (Manual) Monocytes # (Manual) PT INR D-Dimer ABG pH ABG pO2 ABG HCO3 ABG O2 Saturation ABG Base Excess ABG Hemoglobin Oxyhemoglobin Sodium Potassium Chloride Carbon Dioxide BUN Creatinine Glucose POC Glucose 123 H 107 H 119 H Lactic Acid Calcium Phosphorus Magnesium AST ALT Alkaline Phosphatase Lactate Dehydrogenase Troponin T C-Reactive Protein NT-Pro-B Natriuret Pep Total Protein Albumin LDL Cholesterol Direct Vitamin B12 Crossmatch 12/26/21 12/26/21 12/26/21 00:06 05:56 07:51 WBC 11.4 H RBC 3.40 L Hgb 9.3 L Hct 28.3 L MCV MCH 27 L MCHC RDW 18.2 H Plt Count Seg Neuts % (Manual) Lymphocytes % (Manual) Seg Neutrophils # Man Lymphocytes # (Manual) Monocytes # (Manual) PT INR D-Dimer ABG pH ABG pO2 ABG HCO3 ABG O2 Saturation ABG Base Excess ABG Hemoglobin Oxyhemoglobin Sodium Potassium Chloride Carbon Dioxide BUN Creatinine Glucose POC Glucose 133 H 107 H Lactic Acid Calcium Phosphorus Magnesium AST ALT Alkaline Phosphatase Lactate Dehydrogenase Troponin T C-Reactive Protein NT-Pro-B Natriuret Pep Total Protein Albumin LDL Cholesterol Direct Vitamin B12 Crossmatch 12/26/21 07:51 WBC RBC Hgb Hct MCV MCH MCHC RDW Plt Count Seg Neuts % (Manual) Lymphocytes % (Manual) Seg Neutrophils # Man Lymphocytes # (Manual) Monocytes # (Manual) PT INR D-Dimer ABG pH ABG pO2 ABG HCO3 ABG O2 Saturation ABG Base Excess ABG Hemoglobin Oxyhemoglobin Sodium 136 L Potassium Chloride Carbon Dioxide BUN 25 H Creatinine 0.3 L Glucose 131 H POC Glucose Lactic Acid Calcium Phosphorus Magnesium AST ALT Alkaline Phosphatase Lactate Dehydrogenase Troponin T C-Reactive Protein NT-Pro-B Natriuret Pep Total Protein Albumin LDL Cholesterol Direct Vitamin B12 Crossmatch Allied health notes reviewed: nursing
--- NOTE | 2021-12-26 10:53 | Progress Note ---
Assessment and Plan Cultures: SARS CoV2 PCR: negative 11/03/2021 blood culture: Group B streptococcus 11/04/2021 blood culture: no growth 11/11/2021 blood culture: No growth 12/16/2021 tracheal aspirate culture MRSA 12/16/2021 blood culture MRSA 12/19/2021 no growth A/P: 81-year-old female with diabetes mellitus, hypertension, arthritis was admitted with shortness of breath. She was also having fever: #Acute fevers: Likely secondary to MRSA bacteremia and pneumonia #MRSA bacteremia: Likely secondary to pneumonia. pacemaker in place. #Acute hypoxic respiratory failure: Secondary to above. Tracheostomy, on the v ent. #Acute DVT: unable to anticoagulate Recs: -Continue vancomycin goal trough 10-20. Plan for 6 weeks -She does have a pacer in place, and given her critical illness would doubt she would be a candidate for removal if vegetation found. As such would recommend 6 weeks IV antibiotics followed by PO suppression with bactrim for life. -Case management consulted for vancomycin 1 g daily until 01/30/2022. Will need Bactrim suppression for life following this Infectious disease will sign off. Please call questions. Mahogany Montes MD [facility] O: [phone] F: [phone] Subjective Date of service: 12/26/21 Principal diagnosis: Septic shock; AHRF; Anemia; Pneumonia; pleural effusion; HFrEF; Pulm HTN Interval history: Afebrile, white count 11.4. Objective - Exam Narrative Exam: Physical exam deferred to reduce risk of transmission of COVID-19. Please refer to primary team's note. - Constitutional Vitals: Vital Signs Temp Pulse Resp BP Pulse Ox 97.9 F 92 H 33 H 83/50 96 12/26/21 08:00 12/26/21 10:00 12/26/21 10:00 12/26/21 09:43 12/26/21 10:00 Temperature -Last 24 Hours Temperature 97.9 F Temperature 98.6 F Temperature 97.6 F Temperature 97.7 F Temperature 97.9 F - Labs CBC & Chem 7: 12/26/21 07:51 12/26/21 07:51 Labs: Abnormal lab results 12/25/21 12/26/21 12/26/21 Range/Units 11:48 00:06 05:56 WBC (4.5-11.0) K/mm3 RBC (3.65-5.03) M/mm3 Hgb (10.1-14.3) gm/dl Hct (30.3-42.9) % MCH (28-32) pg RDW (13.2-15.2) % Sodium (137-145) mmol/L BUN (7-17) mg/dL Creatinine (0.6-1.2) mg/dL Glucose (65-100) mg/dL POC Glucose 119 H 133 H 107 H (70-105) mg/dL 12/26/21 12/26/21 Range/Units 07:51 07:51 WBC 11.4 H (4.5-11.0) K/mm3 RBC 3.40 L (3.65-5.03) M/mm3 Hgb 9.3 L (10.1-14.3) gm/dl Hct 28.3 L (30.3-42.9) % MCH 27 L (28-32) pg RDW 18.2 H (13.2-15.2) % Sodium 136 L (137-145) mmol/L BUN 25 H (7-17) mg/dL Creatinine 0.3 L (0.6-1.2) mg/dL Glucose 131 H (65-100) mg/dL POC Glucose (70-105) mg/dL
[2021-12-26] MEDS: VANCOMYCIN/NS 1 GM/250 ML 1 GM/250 ML BAG IV SCH (14:52)
--- NOTE | 2021-12-26 17:48 | Progress Note ---
Assessment and Plan Assessment and plan: This is a 81-year-old female with known history of diabetes mellitus, hypertension, PPM, and arthritis admitted for sepsis and acute hypoxia respiratory failure 2/2 bilateral pneumonia requiring intubation and ventilatory support Assessment and Plan Neuro : Anxiety, chronic pain -Neurology consulted, appreciate recommendations -CT brain showed no acute events -EEG interpreted as abnormal record due to diffuse slowing noted throughout the recording, suggestive of encephalopathic process and/or drug effect, possibilities of postictal state cannot be totally excluded. Clinical correlation is in order -MRI brain not obtained-> patient has metal in her body -Repeat CT head with no acute findings -Reorientation as needed -Ammonia 42, B12 1823, TSH 1.5 -BuSpar, Seroquel, [place], gabapentin -xanax changed to PRN, fent patch dc 12/14 -prn xanax and Dilaudid Cardio: Acute Heart failure with reduced EF, h/o chronic heart block s/p PPM, HTN, CAD s/p PCI (2004), Moderate pulmonary HTN, cardiomyopathy -s/p vasopressor support with levophed -11/04 echocardiogram shows EF 30 to 35%, Moderate pulmonary HTN RVSP 49 -/ echo with 35-40% EF -Cardiology consulted, appreciate recommendations -Continue beta-charleen and statin therapy -Midodrine (titrate as needed) -Not on aspirin due to allergy -Blood pressure monitoring per protocol -As needed nitroglycerin Resp: Acute hypoxic respiratory failure secondary to bilateral pneumonia, bilateral pleural effusion. Right pneumothorax (resolved) -COVID-19 PCR negative -Intubated on 11/06 with 6.00 ETT at 18 at the lip and changed over bougie on 11/11-7.50 ETT at 20 at the lip -See RT notes for titration -PSV as tolerated -Surgery consult for trach -Received trach/PEG on 11/26 -S/p bedside bronchoscopy on 11/11 complicated by pneumothorax -S/p chest tube placement for right pneumothorax and dislodgment by patient on 11/15 -ABG/CXR per [facility] -VAP bundle -Right chest wall ultrasound showed pleural effusion s/p chest tube -12/11 US thoracentesis removed 1L fluid -SPO2 monitoring -Mucomyst every 8 -Albuterol every 8 GI: S/p GI bleed, duodenal ulcer, transaminitis -GI consulted, appreciate recommendations -Nutrition consult for tube feeding -BR: Senokot, MiraLAX -s/p peg 11/26 -H2 charleen -Carafate -24-hour +1250 ml -10/2021 Gastric occult positive -> EGD-> duodenal ulcer -12/14 occult stool positive : Urinary retention (resolved), hyponatremia, hypochloremia -Strict intake and output -Trend BMP ID: Septic shock (POA-resolved), bilateral pneumonia, MRSA bacteremia/pna -Infectious disease consulted, appreciate recommendations -COVID-19 PCR negative -Presented with fevers, leukocytosis and hypotension -11/04 blood cultures positive with a group B strep bacteremia 12/19 however repeat blood cultures on the with no growth to date -Echo showed no evidence of vegetation -repeat echo showed EF 35-40 % with no vegetations -ABX therapy: IV vancomycin -Monitor WBC and fever curve -Bedside bronchoscopy for mucous plug on CXR 11/11 -f/u blood cultures Heme: Acute DVT in the right external iliac vein, common femoral vein, superior aspect of femoral vein, Acute microcytic anemia -Evidenced on bilateral upper lower extremity ultrasound -S/p 7 unit PRBC -Trend CBC -Transfuse for hemoglobin less than 7 -heparin gtt dc d/t anemia -S/p IVC filter Endo: h/o DM and hypothyroidism -Continue home Synthroid -SSI -Accu-Cheks every 6 -Avoid hypoglycemia Disposition: Denied LTAC placement by insurance, appeal denied. Awaiting subacute rehab placement The high probability of a clinically significant, sudden or life threatening deterioration of the [pulm,mental health, CV] system(s) required my full and direct attention, intervention and personal management. The aggregate critical care time was [60] minutes. This time is in addition to time spent performing reported procedures but includes the following: [x] Data Review and interpretation [x] Patient assessment and monitoring of vital signs [x] Documentation [x] Medication orders and management Disposition Plan: icu Total Time Spent with Patient (Minutes): 60 History Interval history: This is an 82-year-old female with DM, HTN , CHB s/p PPM, CAD s/p PCI and arthritis who presented to the emergency department on 11/04 for shortness of breath ongoing for the past 3 days, cough and according to family a fever of 1 02.2. Upon arrival of EMS patient was found to be tachypneic and hypoxic with SPO2 of 76% on room air which later improved to 88% on nonrebreather. Work-up in the emergency department included a CXR which showed bilateral interstitial pulmonary edema with bilateral pleural effusions and bibasilar opacities, leukocytosis and anemia with a hemoglobin of 6.1. Patient was admitted to the hospitalist service with acute anemia, acute hypoxic respiratory failure, bilateral pneumonia and COVID-19 PUI with consults to pulmonology, infectious disease and later cardiology. Patient was eventually intubated in the emergency department on 11/06. Hospital Course to date: 11/04/2021: Empiric therapy with iv levaquin/vancomycin. COVID PCR pending. Will consult ID. PCCM consulted, will follow recs. Hypotensive this AM, ordered bolus and fluids at 150 cc/hr. May require pressor support if bp does not improve. 11/05/2021: GBS on bcx +, currently on rocephin IV. Currently on bipap due to respiratory distress overnight. Worsening BL opacities on CXR. May be volume overload vs pneumonia. Unfortunately bp too low for lasix at this point. WIll continue levophed and bipap. Once able to tolerate, may do trial of albumin/lasix. Call attempt made to Niraj, no response. Will try again tomorrow to update. 11/06/2021: Decompensated overnight requiring intubation. CXR shows worsening interstitial infiltrates. Currenlty on dopamine, levophed, vasopressin. PICC line ordered. Advised RN to place gamble for I/O monitoring. Would benefit from diuresis but very volume overloaded. Prognosis guarded 11/08: Off sedation this am, remains unresponsive only grimace to pain. Hold all sedatives agents for now, patient is off pressors this am. Hypernatremia from today's lab- D5W X1bag, and low K repleted, repeat lab in the am. Severe constipation also noted from KUB, BR added. 11/09: Sudden SPO2 drop in the 60s this am. Patient was manually bagged and deep suctioned. Patient is currently stable on the vent, repeat CXR with no significant change. D/w CCM Mucomyst and brochodilator added. Patient mentation is unchanged, continue to hold off on sedative agents. Neurology consulted. 11/10: Acute DVT noted on bilateral lower extremity Doppler ultrasound therefore she was started on Lovenox treatment dose. Failed SBT. Hypernatremia and hyperchloremia noted, free water flush adjusted. 11/11: Patient noted to be febrile with increasing of the cytosis, UA/BC sent and CXR ordered. ID escalated antibiotics to cefepime. CXR demonstrated mucous plug, bedside bronchoscopy was performed and O ETT was changed over bougie from 6 cm to 7.5. Patient was noted to have a pneumothorax postprocedure and chest tube was placed. Family updated by [facility]. Free water flush increased and will add Jaswant supplementation. 11/12: Patient not noted to follow commands, hypernatremia worsen/persist, increasing free water flush, potassium and magnesium and phosphorus repleted. Hemoglobin noted to be 7./24.5 from 7.03/12 yesterday. We will continue to trend and monitor. Vent changes per [facility]. Repeat CXR showed no residual pneumothorax. Consider waterseal tomorrow. Given persistent leukocytosis antibiotics escalated to cefepime per ID. 11/13: Remains on cefepime and vancomycin, vent changes per [facility]. Anemia noted and given 1 unit PRBC. And beta-charleen held in setting of Levophed drip infusing. Remains on fentanyl drip. 11/14: Patient put on CPAP trial by [facility], will continue chest tube until after extubation. Will rest on assist control. CT brain was cancelled by second grade teacher and reordered. 11/15: Patient removed chest tube overnight. Will obtain cxr. remains on low dose levo. CTH completed with no acute findings. RT to place on CPAP. 11/16: Hypernatremia/hyperchloremia noted on the increase of day water flushes. Anemia noted and ordered PRBC. asked RT to place on cpap but not done yet 11/17: Patient remains on the vent, awake and following commands. H&H stable s/p 2units PRBCs. GI on consult, no intervention at this time. Will continue protonix gtt and serial H&H Q6hrs. Keep patient NPO for now, D5w added for hypernatremia and NPO status. Plan for IVC filter placement today by Vascular. 11/18: Patient is s/p IVC filter. H&H continue to trend down, hbg 6.1 this am, 1 unit of PRBCs ordered. Plan for possible EGD today by GI. Keep patient NPO, continue PPI drip and serial H&H Q6hrs. Electrolytes repleted, repeat lab in the am 11/19: S/p EGD- larger duodenal ulcer noted, see operative note. GI recommendations noted also noted. H&H stable this am. Keep patient on protonix gtt for now. Will keep patient NPO, continue IVF and serial H&H for now. Electrolytes repleted, repeat labs in the am 11/20: Very agitated and restless this am, fentanyl gtt resumed. Patient remains on protonix gtt, H&H remains stable. Will switch protonix gtt to IV BID, continue carafate and okay to resume meds at this time. Will F/u with GI to see if TF can be resumed. Gamble was reinserted overnight for retention. Electrolytes repleted, repeat in the am. Plan for possible PST today for possible extubation per CCM. 11/21: Patient is now on seroquel and patient's home buspar resumed. Patient more calm this morning, fentanyl gtt is off. H&H remains stable and patient is tolerating TF. Patient had a runs of Vtach/PVCs this am, BB added per Cardio. Continue daily PS and wean trial for possible extubation. 11/22: Back on fentanyl gtt overnight , RASS o to -1, following commands. Patient failed PST this am due to increased work of breathing and low SPO2, ABG pending. Patient is also with worsen pitting edema, lasix is still on hold. Will discuss with cardio and CCM to possibly resume lasix. 11/23: MARIA DEL CARMEN overnight. Patient failed PST again this am. Per CCM plan for possible trach and PEG, hold off on IV lasix for now. General surgery consulted and family is aware of possible Trach and PEG. 11/24: Trach/PEG pending this week, continue SBT/SAT as tolerated. No acute events reported overnight. 11/25: Patient was n.p.o. overnight and will remain n.p.o. tonight for trach/PEG tomorrow morning. She failed to support trial again. KUB obtained due to distended belly. 11/26: Patient scheduled for tracheostomy and PEG tube placement today, has been n.p.o. since midnight. No acute events reported overnight. [facility] ordered simethicone scheduled. 11/27: No acute events reported overnight, patient received trach/PEG yesterday. Has been on feedings since last night. Still awaiting LTAC placement. 11/28: Patient magnesium repleted, repeat a.m. labs, SBT 11/29: Patient complains of chest pain but ECG obtained which showed no acute findings, ordered troponin. Patient failed CPAP yesterday and was trialed again today. levophed was restarted but will aggressively wean 11/30: Patient failed SBT. Continue supportive care. Started gabapentin today 12/01: MARIA DEL CARMEN overnight. Continue daily PST. Case management to arrange possible placement 12/02: Report of dark stools overnight, patient is hemodynamically stable. H&H stable, patient is on PPI. Will continue to trend H&H. Continue daily PST as tolerated. Awaiting LTAC vs SNF placement. 12/03: Hypotensive overnight, requiring low dose pressors. S/p X3 days of gentle diurese. Will continue to monitor, wean off pressors as tolerated for MAP of 65. Patient Failed PST yesterday, case management to follow up with insurance for possible LTAC placement. Continue daily PST as tolerated. PT eval and treat ordered. 12/04: Increased agitation and anxiety overnight, remains on buspar and seroquel, trazadone added to promote rest. Patient is now working with PT, keep patient engage and awake during the day so she can rest at night. No BM for over 5 days, BR was adjusted. Patient did not tolerate PST again yesterday, continue daily PST as tolerated. Continue to titrate pressor for MAP above 65. Pending possible LTAC placement, case management to arrange. 12/05: Still not getting much rest overnight, will add melatonin for sleep. Continue to engage patient during the day and promote rest at night. TF was held due to concern for possible bleeding, H&H remains stable and stools normal this am. Resume TF and continue PPI and carafate. Remains on low dose levophed, titrate as tolerated. Continue daily PST. Possible LTAC placement, awaiting approval. 12/06: MARIA DEL CARMEN overnight. Patient rested overnight. Continue supportive measures. Daily PST as tolerated. Awaiting possible LTAC placement 12/07: MARIA DEL CARMEN overnight. Plan for Tpiece trial today. Continue current supportive measures. Possible LTAC placement 12/08: Patient placed on pressure support trial again today, started on Xanax, no acute events reported overnight. Awaiting insurance approval for LTAC. 12/09: Levophed discontinued, LTAC transfer denied, started on midodrine and Lasix, ultrasound chest pending, started on Xanax 0.[address] De León updated family at bedside today. Started on Dilaudid every 3 hours as needed. 12/10: Patient placed on CPAP trial this morning, no acute events reported overnight. Will order ultrasound-guided thoracentesis. 12/11: Patient had a thoracentesis today, will decrease Xanax dosage and continue midodrine and diuresing. Patient failed CPAP today. 12/12: Patient not tolerate CPAP trials today, no acute events reported overnight 12/13: No acute events overnight. continue PSV trials as tolerated. Daughter updated at bedside 12/14: Patient noted to be anemic today, ordered gastric occult. Patient seems to be oversedated therefore Xanax changed to as needed and fentanyl patch discontinued. We will continue to monitor hyponatremia. 12/15: MARIA DEL CARMEN overnight. s/p 1unit of PRBCs, H&H stable this am, no signs of any active bleeding. Continue daily PST as tolerated. Awaiting placement. 12/16: Hypertensive this am, Midodrine decreased. Continue daily PST. MARIA DEL CARMEN overnight 12/17: Patient Hgb dropped to 6 this am, no s/s of any active bleeding, VSS. Patient received 1unit of PRBC, will continue to trend H&H. Patient was pancultured and back on IV Abx due to persistent fevers yesterday. ID is also back on the case. Continue IV Abx per ID and f/u on cultures data for sensitivity. Patient also failed PST yesterday, continue daily PST as tolerated. Electrolytes repleted, repeat labs in the am. 12/18: Patient blood cultures is growing GPC 4 out 4 bottles. PICC line D/Rivas, patient is already on IV Abx-cefepine and Vanc and ID is following. Patient remains hemodynamically stable. Daily PST as tolerated adn PRN Benzo for anxiety. 12/19: MARIA DEL CARMEN overnight. Culture data noted, continue IV Abx per ID. Orders placed for repeat Bculture. Gamble D/C overnight, patient is voiding. Check bladder scan as needed for retention. Patient failed PST again today. Continue daily PST as tolerated. 12/20: Fevers improved, Cultures +MRSA, on Vanco per ID. Repeat 2D Echo to r/o endocarditis. Patient continue to fail PST, PEEP increased to 8 today. Continue pulmonary hygiene and vent wean per [facility]. Sodium tab added for hyponatremia. 12/22: Patient on pressure support trial for approximately 4 hours today, midodrine dosage increased due to hypotension. Lasix discontinued. 12/23: Started on a.m. Seroquel dose, midodrine increased to 10 mg 3 times daily, 500 mL normal saline bolus. 12/24: Seroquel dose changed (25 every morning, 75 nightly). updated at bedside by Dr. De León. CPAP trials as tolerated. Continue vancomycin. Awaiting placement. 12/25: Continue CPAP as tolerated, added gasx for distention. Continue supportive care 12/26: Patient failed PSV this AM. no acute events overnight. Hospitalist Physical - Constitutional Vitals: Temp Pulse Resp BP Pulse Ox 97.6 F 66 15 86/45 99 12/26/21 16:00 12/26/21 17:00 12/26/21 17:00 12/26/21 17:00 12/26/21 17:00 General appearance: Present: no acute distress, other (Trach and on the vent) - EENT Eyes: Present: PERRL, EOM intact ENT: poor dentition - Neck Neck: Present: normal ROM - Respiratory Respiratory effort: normal Respiratory: bilateral: diminished - Cardiovascular Rhythm: regular Heart Sounds: Present: S1 & S2. Absent: systolic murmur, diastolic murmur - Extremities Extremities: no ischemia, pulses intact, pulses symmetrical, normal temperature, normal color Extremity abnormal: edema Peripheral Pulses: within normal limits - Abdominal General gastrointestinal: soft, non-tender, non-distended, normal bowel sounds - Integumentary Integumentary: Present: warm, dry - Psychiatric Psychiatric: cooperative - Neurologic Neurologic: CNII-XII intact, no focal deficits, moves all extremities - Allied Health Allied health notes reviewed: nursing, RT, social work HEART Score - HEART Score Troponin: Troponin T 0.045 ng/mL (0.00-0.029) H 11/29/21 20:15 Results - Labs CBC & Chem 7: 12/26/21 07:51 12/26/21 07:51 Labs: Laboratory Last Values WBC 11.4 K/mm3 (4.5-11.0) H 12/26/21 07:51 RBC 3.40 M/mm3 (3.65-5.03) L 12/26/21 07:51 Hgb 9.3 gm/dl (10.1-14.3) L 12/26/21 07:51 Hct 28.3 % (30.3-42.9) L 12/26/21 07:51 MCV 83 fl (79-97) 12/26/21 07:51 MCH 27 pg (28-32) L 12/26/21 07:51 MCHC 33 % (30-34) 12/26/21 07:51 RDW 18.2 % (13.2-15.2) H 12/26/21 07:51 Plt Count 269 K/mm3 (140-440) 12/26/21 07:51 Add Manual Diff Complete 12/20/21 04:54 Total Counted 100 12/20/21 04:54 Seg Neutrophils % Seo Expert 11/06/21 15:50 Seg Neuts % (Manual) 88.0 % (40.0-70.0) H 12/20/21 04:54 Band Neutrophils % 0 % 12/20/21 04:54 Lymphocytes % (Manual) 6.0 % (13.4-35.0) L 12/20/21 04:54 Reactive Lymphs % (Man) 0 % 12/20/21 04:54 Monocytes % (Manual) 5.0 % (0.0-7.3) 12/20/21 04:54 Eosinophils % (Manual) 1.0 % (0.0-4.3) 12/20/21 04:54 Basophils % (Manual) 0 % (0.0-1.8) 12/20/21 04:54 Metamyelocytes % 0 % 12/20/21 04:54 Myelocytes % 0 % 12/20/21 04:54 Promyelocytes % 0 % 12/20/21 04:54 Blast Cells % 0 % 12/20/21 04:54 Nucleated RBC % Not Reportable 12/20/21 04:54 Seg Neutrophils # Man 10.8 K/mm3 (1.8-7.7) H 12/20/21 04:54 Band Neutrophils # 0.0 K/mm3 12/20/21 04:54 Lymphocytes # (Manual) 0.7 K/mm3 (1.2-5.4) L 12/20/21 04:54 Abs React Lymphs (Man) 0.0 K/mm3 12/20/21 04:54 Monocytes # (Manual) 0.6 K/mm3 (0.0-0.8) 12/20/21 04:54 Eosinophils # (Manual) 0.1 K/mm3 (0.0-0.4) 12/20/21 04:54 Basophils # (Manual) 0.0 K/mm3 (0.0-0.1) 12/20/21 04:54 Metamyelocytes # 0.0 K/mm3 12/20/21 04:54 Myelocytes # 0.0 K/mm3 12/20/21 04:54 Promyelocytes # 0.0 K/mm3 12/20/21 04:54 Blast Cells # 0.0 K/mm3 12/20/21 04:54 WBC Morphology Not Reportable 12/20/21 04:54 Hypersegmented Neuts Not Reportable 12/20/21 04:54 Hyposegmented Neuts Not Reportable 12/20/21 04:54 Hypogranular Neuts Not Reportable 12/20/21 04:54 Smudge Cells Not Reportable 12/20/21 04:54 Toxic Granulation Not Reportable 12/20/21 04:54 Toxic Vacuolation Not Reportable 12/20/21 04:54 Dohle Bodies Not Reportable 12/20/21 04:54 Pelger-Huet Anomaly Not Reportable 12/20/21 04:54 Irina Rods Not Reportable 12/20/21 04:54 Platelet Estimate Consistent w auto 12/20/21 04:54 Clumped Platelets Not Reportable 12/20/21 04:54 Plt Clumps, EDTA Not Reportable 12/20/21 04:54 Large Platelets Not Reportable 12/20/21 04:54 Giant Platelets Not Reportable 12/20/21 04:54 Platelet Satelliting Not Reportable 12/20/21 04:54 Plt Morphology Comment Not Reportable 12/20/21 04:54 RBC Morphology Not Reportable 12/20/21 04:54 Dimorphic RBCs Not Reportable 12/20/21 04:54 Polychromasia Not Reportable 12/20/21 04:54 Hypochromasia Not Reportable 12/20/21 04:54 Poikilocytosis Not Reportable 12/20/21 04:54 Anisocytosis 1+ 12/20/21 04:54 Microcytosis Not Reportable 12/20/21 04:54 Macrocytosis Not Reportable 12/20/21 04:54 Spherocytes Not Reportable 12/20/21 04:54 Pappenheimer Bodies Not Reportable 12/20/21 04:54 Sickle Cells Not Reportable 12/20/21 04:54 Target Cells Not Reportable 12/20/21 04:54 Tear Drop Cells Not Reportable 12/20/21 04:54 Ovalocytes Not Reportable 12/20/21 04:54 Helmet Cells Not Reportable 12/20/21 04:54 Odonnell-Frannie Bodies Not Reportable 12/20/21 04:54 Aguirre Rings Not Reportable 12/20/21 04:54 [place] Cells Not Reportable 12/20/21 04:54 Bite Cells Not Reportable 12/20/21 04:54 Crenated Cell Not Reportable 12/20/21 04:54 Elliptocytes Not Reportable 12/20/21 04:54 Acanthocytes (Spur) Not Reportable 12/20/21 04:54 Rouleaux Not Reportable 12/20/21 04:54 Hemoglobin C Crystals Not Reportable 12/20/21 04:54 Schistocytes Not Reportable 12/20/21 04:54 Malaria parasites Not Reportable 12/20/21 04:54 Godfrey Bodies Not Reportable 12/20/21 04:54 Hem Pathologist Commnt No 12/20/21 04:54 PT 16.9 Sec. (12.2-14.9) H 11/26/21 05:00 INR 1.24 (0.87-1.13) H 11/26/21 05:00 APTT 29.2 Sec. (24.2-36.6) 11/26/21 05:00 D-Dimer 2655.00 ng/mlDDU (0-234) H 11/11/21 04:28 ABG pH 7.479 pH Units (7.350-7.450) H 12/16/21 20:52 ABG pCO2 37.5 mm Hg 12/16/21 20:52 ABG pO2 79.3 mm Hg (80.0-90.0) L 12/16/21 20:52 ABG HCO3 27.3 mmol/L (20.0-26.0) H 12/16/21 20:52 ABG O2 Saturation 97.0 % (95.0-99.0) 12/16/21 20:52 ABG O2 Content 12.3 (0.0-44) 12/16/21 20:52 ABG Base Excess 3.6 mmol/L (-2.0-3.0) H 12/16/21 20:52 ABG Hemoglobin 9.1 gm/dl (12.0-16.0) L 12/16/21 20:52 ABG Carboxyhemoglobin 1.6 % (0.0-5.0) 12/16/21 20: ABG Methemoglobin 0.5 % (0.0-1.5) 12/16/21 20:52 Oxyhemoglobin 94.9 % (95.0-99.0) L 12/16/21 20:52 FiO2 30 % 12/16/21 20:52 Sodium 136 mmol/L (137-145) L 12/26/21 07:51 Potassium 4.2 mmol/L (3.6-5.0) 12/26/21 07:51 Chloride 100.1 mmol/L (98-107) 12/26/21 07:51 Carbon Dioxide 23 mmol/L (22-30) 12/26/21 07:51 Anion Gap 17 mmol/L 12/26/21 07:51 BUN 25 mg/dL (7-17) H 12/26/21 07:51 Creatinine 0.3 mg/dL (0.6-1.2) L 12/26/21 07:51 Estimated GFR > 60 ml/min 12/26/21 07:51 BUN/Creatinine Ratio 83 % 12/26/21 07:51 Glucose 131 mg/dL (65-100) H 12/26/21 07:51 POC Glucose 128 mg/dL (70-105) H 12/26/21 17:06 Lactic Acid 3.70 mmol/L (0.7-2.0) H* 11/03/21 22:32 Calcium 8.5 mg/dL (8.4-10.2) 12/26/21 07:51 Phosphorus 3.40 mg/dL (2.5-4.5) 12/21/21 04:21 Magnesium 1.70 mg/dL (1.7-2.3) 12/21/21 04:21 Ferritin 52.6 ng/mL (10.0-200.0) 11/05/21 06:11 Total Bilirubin 0.50 mg/dL (0.1-1.2) 11/17/21 05:56 Direct Bilirubin < 0.2 mg/dL (0-0.2) 11/11/21 04:28 Indirect Bilirubin 0.1 mg/dL 11/11/21 04:28 AST 36 units/L (5-40) 11/17/21 05:56 ALT 47 units/L (7-56) 11/17/21 05:56 Alkaline Phosphatase 107 units/L (35-129) 11/17/21 05:56 Ammonia 42.0 umol/L (25-60) 11/10/21 14:08 Lactate Dehydrogenase 187 units/L (91-180) H 11/05/21 06:11 Troponin T 0.045 ng/mL (0.00-0.029) H 11/29/21 20:15 C-Reactive Protein 22.20 mg/dL (0.00-1.30) H 11/05/21 06:11 NT-Pro-B Natriuret Pep 7895 pg/mL (0-900) H 11/03/21 22:32 Total Protein 5.1 g/dL (6.3-8.2) L 11/17/21 05:56 Albumin 2.2 g/dL (3.9-5) L 11/17/21 05:56 Albumin/Globulin Ratio 0.8 % 11/17/21 05:56 Triglycerides 59 mg/dL (2-149) 11/29/21 20:15 Cholesterol 74 mg/dL (50-199) 11/29/21 20:15 LDL Cholesterol Direct 25 mg/dL (50-130) L 11/29/21 20:15 HDL Cholesterol 41 mg/dL (40-59) 11/29/21 20:15 Cholesterol/HDL Ratio 1.80 % 11/29/21 20:15 Vitamin B12 1823 pg/mL (211-911) H 11/10/21 14:08 TSH 1.510 mlU/mL (0.270-4.200) 11/10/21 14:08 Urine Color Yellow (Yellow) 11/11/21 09:00 Urine Turbidity Slightly-cloudy (Clear) 11/11/21 09:00 Urine pH 5.0 (5.0-7.0) 11/11/21 09:00 Ur Specific [place] 1.009 (1.003-1.030) 11/11/21 09:00 Urine Protein <15 mg/dl mg/dL (Negative) 11/11/21 09:00 Urine Glucose (UA) Neg mg/dL (Negative) 11/11/21 09:00 Urine Ketones Neg mg/dL (Negative) 11/11/21 09:00 Urine Blood Mod (Negative) 11/11/21 09:00 Urine Nitrite Neg (Negative) 11/11/21 09:00 Urine Bilirubin Neg (Negative) 11/11/21 09:00 Urine Urobilinogen < 2.0 mg/dL (<2.0) 11/11/21 09:00 Ur Leukocyte Esterase Neg (Negative) 11/11/21 09:00 Urine WBC (Auto) < 1.0 /HPF (0.0-6.0) 11/11/21 09:00 Urine RBC (Auto) < 1.0 /HPF (0.0-6.0) 11/11/21 09:00 Vancomycin Trough 14.4 ug/mL (5.0-20.0) 12/26/21 Unknown Coronavirus (PCR) Negative (Negative) 11/10/21 08:30 Blood Type O POSITIVE 12/14/21 10:30 Antibody Screen Negative 12/14/21 10:30 Crossmatch See Detail 12/14/21 10:30 Gamble/IV: Voiding Method External Female Catheter Active Medications - Current Medications Current Medications: Generic Name Dose Route Start Last Admin Trade Name Freq PRN Reason Stop Dose Admin Acetaminophen 650 mg 12/14/21 04:12 12/16/21 13:34 Acetaminophen 325 Mg/10.15 Ml Oral Liqd Unit Dose FEEDTUBE 650 mg Q6H PRN Administration Non Cardiac Pain or Temp>100.5 Hydrocodone Bitart/Acetaminophen 1 each 11/21/21 10:00 12/26/21 14:53 Hydrocodone/Acetaminophen 10-325mg Tab FEEDTUBE 1 each TID YOSSI Administration Alprazolam 0.25 mg 12/14/21 09:00 12/26/21 09:39 Alprazolam 0.25 Mg Tab PO 0.25 mg Q8H PRN Administration Agitation Lipase/Protease/Amylase 1 each 11/08/21 11:09 Lipase 10,500/Protease 25,000/Amylase 43,750 (Units) Dr Lema FEEDTUBE PRN PRN For Clogged Feeding Tube Buspirone HCl 7.5 mg 11/17/21 22:00 12/26/21 09:20 Buspirone 5 Mg Tab PO 7.5 mg BID YOSSI Administration Dextrose 0 ml 11/10/21 10:52 11/21/21 16:27 Dextrose 10% *Hypoglycemia IV 50 ml PRN PRN Administration Hypoglycemia Docusate Sodium 100 mg 12/04/21 11:00 12/26/21 09:19 Docusate Sodium 100 Mg/10 Ml Oral Liqd PO 100 mg BID YOSSI Administration Gabapentin 100 mg 12/01/21 10:00 12/26/21 09:19 Gabapentin 100 Mg Cap PO 100 mg QDAY YOSSI Administration Hydromorphone HCl 0.5 mg 12/08/21 20:06 12/25/21 12:02 Hydromorphone 1 Mg/1 Ml Inj IV 0.5 mg Q3H PRN Administration Pain, Moderate (4-6) Hydrophilic Ointment 1 applic 11/06/21 04:02 Lip Therapy Vaseline TP Q2HR PRN Dry Lips Vancomycin HCl 1 gm in 250 mls @ 166.667 mls/hr 12/16/21 14:00 12/26/21 14:52 Vancomycin/Ns 1 Gm/250 Ml IV 01/26/22 15:29 166.66 mls/hr Q24H YOSSI Administration Protocol Lansoprazole 30 mg 11/24/21 22:00 12/26/21 09:19 Lansoprazole 30 Mg Solutab FEEDTUBE 30 mg BID YOSSI Administration Levothyroxine Sodium 125 mcg 11/05/21 07:00 12/26/21 07:20 Levothyroxine 125 Mcg Tab PO 125 mcg DAILY@0600 YOSSI Administration Melatonin 5 mg 12/05/21 22:00 12/25/21 22:46 Melatonin 5 Mg Tab PO 5 mg QHS [facility] Administration Metoprolol Tartrate 6.25 mg 12/08/21 22:52 12/26/21 09:19 Metoprolol Tartrate 25 Mg Tab PO 6.25 mg BID YOSSI Administration Midodrine 10 mg 12/22/21 14:00 12/26/21 14:52 Midodrine 5 Mg Tab PO 10 mg TID YOSSI Administration Multi-Ingred Cream/Lotion/Oil/Oint 1 applic 11/06/21 04:02 Mineral Oil/Petrolatum, White Ophth Oint 3.5 Gm OU Q4HR PRN Dry Eye(s) Nitroglycerin 0.4 mg 11/30/21 11:36 Nitroglycerin 0.4 Mg Tab Subl SL .Q5MIN PRN Chest Pain Ondansetron HCl 4 mg 12/05/21 10:00 12/25/21 02:54 Ondansetron 4 Mg/2 Ml Inj IV 4 mg Q8H PRN Administration Nausea And Vomiting Polyethylene Glycol 17 gm 12/02/21 10:00 12/26/21 10:20 Polyethylene Glycol 3350 17 Gm Powder PO Not Given QDAY [facility] Pravastatin Sodium 20 mg 11/18/21 22:00 12/25/21 22:48 Pravastatin 20 Mg Tab PO 20 mg QHS [facility] Administration Quetiapine Fumarate 75 mg 12/24/21 22:00 12/25/21 22:59 Quetiapine 25 Mg Tab PO 75 mg QHS [facility] Administration Quetiapine Fumarate 25 mg 12/25/21 10:00 12/26/21 09:39 Quetiapine 25 Mg Tab PO 25 mg QAM [facility] Administration Simethicone 160 mg 12/24/21 15:00 12/26/21 14:53 Simethicone 80 Mg Chew Tab PO 12/27/21 09:01 160 mg Q6H YOSSI Administration Simple Syrup 15 ml 11/08/21 11:09 Simple Syrup 15 Ml FEEDTUBE PRN PRN Hypoglycemia Simple Syrup 30 ml 11/08/21 11:09 Simple Syrup 15 Ml FEEDTUBE PRN PRN Hypoglycemia Sodium Bicarbonate 325 mg 11/08/21 11:09 Sodium Bicarbonate 325 Mg Tab FEEDTUBE PRN PRN For Clogged Feeding Tube Sodium Chloride 10 ml 11/04/21 10:00 12/26/21 10:20 Sodium Chloride 0.9% 10 Ml Flush Syringe IV 10 ml BID OYSSI Administration Sodium Chloride 10 ml 11/04/21 02:03 Sodium Chloride 0.9% 10 Ml Flush Syringe IV PRN PRN LINE FLUSH Sucralfate 1 gm 11/18/21 16:30 12/26/21 11:55 Sucralfate 1 Gm/10 Ml Oral Liqd PO 1 gm ACHS YOSSI Administration Trazodone HCl 50 mg 12/04/21 22:00 12/25/21 22:46 Trazodone 50 Mg Tab PO 50 mg QHS YOSSI Administration Nutrition/Malnutrition Assess - Dietary Evaluation Nutrition/Malnutrition Findings: Nutrition Notes Start: 11/04/21 17:16 Freq: Status: Active Protocol: Document 12/26/21 16:55 YOVANI (Rec: 12/26/21 16:56 [email or web address]) Nutrition Notes Initial or Follow up Brief Note Current Diet TF - Vital AF 1.2 at 45ml/hr Subjective/Other Information Per RN, pt tolerating TF at goal rate of 45ml/hr. Pt remains on vent support. Nutrition Intervention Follow-Up By: 01/02/22 Additional Comments F/U: stable TF, vent status, wt
[2021-12-26] MEDS: ONDANSETRON 4 MG/2 ML INJ IV PRN (18:23)
[2021-12-26] MEDS: traZODone 50 MG TAB PO SCH (21:35)
[2021-12-26] MEDS: PRAVASTATIN 20 MG TAB PO SCH (21:37)
[2021-12-26] MEDS: MELATONIN 5 MG TAB PO SCH (21:38)
[2021-12-27] MEDS: SIMETHICONE 80 MG CHEW TAB PO SCH ×2 (03:55→12:55)
[2021-12-27] MEDS: LEVOTHYROXINE 125 MCG TAB PO SCH (05:55)
[2021-12-27] MEDS: HYDROmorphone 1 MG/1 ML INJ IV PRN (06:16)
[2021-12-27] MEDS: METOPROLOL TARTRATE 25 MG TAB PO SCH ×2 (10:02→21:32)
[2021-12-27] MEDS: busPIRone 5 MG TAB PO SCH ×2 (10:02→21:32)
[2021-12-27] MEDS: LANSOPRAZOLE 30 MG SOLUTAB FEEDTUBE SCH ×2 (10:03→21:33)
[2021-12-27] MEDS: SUCRALFATE 1 GM/10 ML ORAL LIQD PO SCH ×4 (10:03→21:33)
[2021-12-27] MEDS: GABAPENTIN 100 MG CAP PO SCH (10:03)
[2021-12-27] MEDS: POLYETHYLENE GLYCOL 3350 17 GM POWDER PO SCH (10:03)
[2021-12-27] MEDS: DOCUSATE SODIUM 100 MG/10 ML ORAL LIQD PO SCH ×2 (10:03→21:33)
[2021-12-27] MEDS: QUEtiapine 25 MG TAB PO SCH ×2 (10:03→21:35)
[2021-12-27] MEDS: MIDODRINE 5 MG TAB PO SCH ×3 (10:14→16:03)
[2021-12-27] MEDS: HYDROcodone/ACETAMINOPHEN 10-325MG TAB FEEDTUBE SCH ×3 (10:14→21:33)
--- NOTE | 2021-12-27 11:50 | Progress Note ---
Assessment and Plan Gram positive Bacteremia (MRSA) Acute respiratory failure with hypoxia, now on MVS Acute microcytic anemia Bilateral pneumonia DVT Left pleural effusion Cardiomyopathy EF 30-35% Moderate pulmonary HTN RVSP 49e - begin low dose Reglan - get GI consult re: abd swelling and pain - continue Seroquel - placed on PSV 20/6 and tolerating well - continue Vancomycin for MRSA (6 weeks of therapy recommended) - continue daily SAT and SBT assessment as tolerated - no new issues otherwise, continue care as below; - LTAC evaluation ongoing - prn Levophed for target MAP > 65 mmHg - continue to wean supplemental oxygen for target O2 sat's > 90% acutely - VAP bundle addressed - continue lung protective strategies - continue bronchodilators with routine trach care and pulmonary hygiene per RT - wean per pulmonary driven protocols otherwise - avoid nephrotoxins, renally dose all medications - continue accuchecks with glycemic control per SSI (While critically ill target blood glucose of 140-180 mg/dL; avoid hypoglycemia) - sedation prn for target RASS 0 to -1 - antibiotics per ID recommendations - continue to avoid benzodiazepine's, reduce the possibility of delirium - prn analgesia per CPOT score - Maintenance of sleep-wake cycle, avoid delirium - continue enteral nutritional support at goal rate as tolerated - G.I. & VTE prophylaxis - PT/OT/ROM exercises - continue mobility protocols for pressure ulcer prophylaxis - Monitor hemodynamics closely - continue other care per attending / other consultants - discharge planning ongoing concurrently COVID SPECIFIC INTERVENTIONS - COVID-19 PCR negative .... Re-evaluate in am & prn CONDITION: CRITICAL PROGNOSIS: GUARDED CODE STATUS: FULL CODE The high probability of a clinically significant, sudden or life-threatening deterioration of the [respiratory, cardiovascular & neurologic] system(s) required my full and direct attention, intervention and personal management. The aggregate critical care time was [34] minutes without overlap. Time includes spent on; [x] Data Review and interpretation [x] Patient assessment and monitoring of vital signs [x] Documentation [x] Medication orders and management Subjective Date of service: 12/27/21 Principal diagnosis: Septic shock; AHRF; Anemia; Pneumonia; pleural effusion; HFrEF; Pulm HTN Interval history: Patient is seen today for: Septic shock; Acute hypoxemic respiratory failure; Anemia; Bilateral pneumonia; Left pleural effusion; HFrEF 30-35%; Pulm HTN RVSP 49 Seen and examined at bedside; 24hour events reviewed; nursing and respiratory care staff consulted; no adverse overnight events reported to me; resting in bed; remains a difficult wean; abdominal distension is persistent and affecting weaning trials; daughter is visiting; denies N/V/F/C Objective Vital Signs - 12hr 12/27/21 12/27/21 12/27/21 00:00 00:30 00:45 Temperature 98.6 F Pulse Rate 60 60 61 Pulse Rate [ 77 From Monitor] Respiratory 20 19 Rate Blood Pressure 142/61 142/61 142/61 O2 Sat by Pulse 99 100 100 Oximetry O2 Sat by Pulse Oximetry [ Assessment] 12/27/21 12/27/21 12/27/21 01:00 01:31 02:00 Temperature Pulse Rate 60 60 60 Pulse Rate [ From Monitor] Respiratory 23 17 23 Rate Blood Pressure 155/62 155/62 141/50 O2 Sat by Pulse 98 98 100 Oximetry O2 Sat by Pulse Oximetry [ Assessment] 12/27/21 12/27/21 12/27/21 02:31 03:00 03:31 Temperature Pulse Rate 64 60 70 Pulse Rate [ From Monitor] Respiratory 26 H 22 14 Rate Blood Pressure 141/50 140/60 140/60 O2 Sat by Pulse 100 100 100 Oximetry O2 Sat by Pulse Oximetry [ Assessment] 12/27/21 12/27/21 12/27/21 04:00 04:31 04:51 Temperature 98.6 F Pulse Rate 68 78 62 Pulse Rate [ 72 From Monitor] Respiratory 16 10 L Rate Blood Pressure 148/86 148/86 148/86 O2 Sat by Pulse 100 98 100 Oximetry O2 Sat by Pulse Oximetry [ Assessment] 12/27/21 12/27/21 12/27/21 05:00 05:03 05:31 Temperature Pulse Rate 62 64 Pulse Rate [ From Monitor] Respiratory 14 14 Rate Blood Pressure 152/69 152/69 O2 Sat by Pulse 100 100 Oximetry O2 Sat by Pulse 100 Oximetry [ Assessment] 12/27/21 12/27/21 12/27/21 06:01 06:31 07:00 Temperature 97.3 F L Pulse Rate 80 64 Pulse Rate [ From Monitor] Respiratory 14 14 Rate Blood Pressure 187/110 160/70 O2 Sat by Pulse 100 100 Oximetry O2 Sat by Pulse Oximetry [ Assessment] 12/27/21 12/27/21 08:15 10:02 Temperature Pulse Rate 81 71 Pulse Rate [ From Monitor] Respiratory Rate Blood Pressure 180/80 167/76 O2 Sat by Pulse 100 Oximetry O2 Sat by Pulse 100 Oximetry [ Assessment] Constitutional: alert, appears uncomfortable, other (trach to MVS, frail elderly woman with mildly increased respiratory effort at rest) Eyes: non-icteric ENT: oropharynx moist, other (+ Midline tracheostomy is clean) Neck: supple, no lymphadenopathy, no JVD Effort: mildly labored Ascultation: Bilateral: diminished breath sounds, rhonchi Percussion: Bilateral: not dull Cardiovascular: regular rate and rhythm, other (S1,S2) Gastrointestinal: normoactive bowel sounds, soft, non-tender, other (distended and firm but not tense) Integumentary: normal Extremities: no cyanosis, pink and warm, pulses normal, edema (upper etremities) Neurologic: normal mental status, non-focal exam (grossly), pupils equal and round, motor strength normal and Psychiatric: anxious CBC and BMP: 12/26/21 07:51 12/26/21 07:51 ABG, PT/INR, D-dimer: ABG ABG pH 7.479 pH Units (7.350-7.450) H 12/16/21 20:52 ABG pCO2 37.5 mm Hg 12/16/21 20:52 ABG pO2 79.3 mm Hg (80.0-90.0) L 12/16/21 20:52 ABG O2 Saturation 97.0 % (95.0-99.0) 12/16/21 20:52 PT/INR, D-dimer PT 16.9 Sec. (12.2-14.9) H 11/26/21 05:00 INR 1.24 (0.87-1.13) H 11/26/21 05:00 D-Dimer 2655.00 ng/mlDDU (0-234) H 11/11/21 04:28 Abnormal lab findings: Abnormal Labs 11/03/21 11/03/21 11/03/21 22:32 22:32 22:32 WBC 29.3 H RBC 2.93 L Hgb 6.1 L Hct 21.9 L MCV 75 L MCH 21 L MCHC 28 L RDW 19.7 H Plt Count Seg Neuts % (Manual) 97.0 H Lymphocytes % (Manual) 3.0 L Seg Neutrophils # Man 28.4 H Lymphocytes # (Manual) 0.9 L Monocytes # (Manual) PT 18.6 H INR 1.40 H D-Dimer ABG pH ABG pO2 ABG HCO3 ABG O2 Saturation ABG Base Excess ABG Hemoglobin Oxyhemoglobin Sodium Potassium Chloride Carbon Dioxide 20 L BUN 33 H Creatinine Glucose 119 H POC Glucose Lactic Acid Calcium 8.3 L Phosphorus Magnesium AST ALT Alkaline Phosphatase Lactate Dehydrogenase Troponin T 0.035 H C-Reactive Protein NT-Pro-B Natriuret Pep Total Protein Albumin LDL Cholesterol Direct 34 L Vitamin B12 Crossmatch 11/03/21 11/03/21 11/03/21 22:32 22:32 23:57 WBC RBC Hgb Hct MCV MCH MCHC RDW Plt Count Seg Neuts % (Manual) Lymphocytes % (Manual) Seg Neutrophils # Man Lymphocytes # (Manual) Monocytes # (Manual) PT INR D-Dimer ABG pH ABG pO2 ABG HCO3 ABG O2 Saturation ABG Base Excess ABG Hemoglobin Oxyhemoglobin Sodium Potassium Chloride Carbon Dioxide BUN Creatinine Glucose POC Glucose Lactic Acid 3.70 H* Calcium Phosphorus Magnesium AST ALT Alkaline Phosphatase 139 H Lactate Dehydrogenase Troponin T C-Reactive Protein NT-Pro-B Natriuret Pep 7895 H Total Protein Albumin 3.5 L LDL Cholesterol Direct Vitamin B12 Crossmatch See Detail 11/04/21 11/04/21 11/05/21 00:59 13:58 00:51 WBC 27.9 H RBC 3.28 L Hgb 7.3 L Hct 25.5 L MCV 78 L MCH 22 L MCHC 29 L RDW 19.1 H Plt Count Seg Neuts % (Manual) 96.0 H Lymphocytes % (Manual) 2.0 L Seg Neutrophils # Man 26.8 H Lymphocytes # (Manual) 0.6 L Monocytes # (Manual) PT INR D-Dimer ABG pH ABG pO2 ABG HCO3 ABG O2 Saturation ABG Base Excess ABG Hemoglobin Oxyhemoglobin Sodium Potassium Chloride Carbon Dioxide BUN Creatinine Glucose POC Glucose Lactic Acid Calcium Phosphorus Magnesium AST ALT Alkaline Phosphatase Lactate Dehydrogenase Troponin T 0.051 H D 0.032 H D C-Reactive Protein NT-Pro-B Natriuret Pep Total Protein Albumin LDL Cholesterol Direct Vitamin B12 Crossmatch 11/05/21 11/05/21 11/05/21 06:11 06:11 06:11 WBC 31.8 H RBC 3.57 L Hgb 8.0 L Hct 27.7 L MCV 78 L MCH 22 L MCHC 29 L RDW 19.2 H Plt Count Seg Neuts % (Manual) 91.0 H Lymphocytes % (Manual) 4.5 L Seg Neutrophils # Man 28.9 H Lymphocytes # (Manual) Monocytes # (Manual) 1.1 H PT INR D-Dimer 1494.53 H ABG pH ABG pO2 ABG HCO3 ABG O2 Saturation ABG Base Excess ABG Hemoglobin Oxyhemoglobin Sodium Potassium Chloride Carbon Dioxide 19 L BUN 42 H Creatinine Glucose 115 H POC Glucose Lactic Acid Calcium Phosphorus Magnesium AST 43 H ALT Alkaline Phosphatase Lactate Dehydrogenase 187 H Troponin T C-Reactive Protein 22.20 H NT-Pro-B Natriuret Pep Total Protein 6.0 L Albumin 3.2 L LDL Cholesterol Direct Vitamin B12 Crossmatch 11/05/21 11/05/21 11/06/21 06:11 12:15 00:30 WBC RBC Hgb Hct MCV MCH MCHC RDW Plt Count Seg Neuts % (Manual) Lymphocytes % (Manual) Seg Neutrophils # Man Lymphocytes # (Manual) Monocytes # (Manual) PT INR D-Dimer ABG pH ABG pO2 ABG HCO3 ABG O2 Saturation ABG Base Excess ABG Hemoglobin Oxyhemoglobin Sodium Potassium Chloride Carbon Dioxide BUN Creatinine Glucose POC Glucose 113 H 69 L Lactic Acid Calcium Phosphorus Magnesium AST ALT Alkaline Phosphatase Lactate Dehydrogenase Troponin T 0.033 H C-Reactive Protein NT-Pro-B Natriuret Pep Total Protein Albumin LDL Cholesterol Direct Vitamin B12 Crossmatch 11/06/21 11/06/21 11/06/21 05:50 15:50 15:50 WBC 25.5 H RBC 3.62 L Hgb 8.0 L Hct 27.5 L MCV 76 L MCH 22 L MCHC 29 L RDW 19.6 H Plt Count Seg Neuts % (Manual) 92.0 H Lymphocytes % (Manual) 5.0 L Seg Neutrophils # Man 23.5 H Lymphocytes # (Manual) Monocytes # (Manual) PT INR D-Dimer ABG pH 7.305 L ABG pO2 ABG HCO3 15.8 L ABG O2 Saturation ABG Base Excess -9.6 L ABG Hemoglobin 8.6 L Oxyhemoglobin 94.6 L Sodium Potassium Chloride 113.9 H Carbon Dioxide 17 L BUN 56 H Creatinine Glucose 114 H POC Glucose Lactic Acid Calcium 7.9 L Phosphorus Magnesium AST 1410 H ALT 934 H Alkaline Phosphatase 142 H Lactate Dehydrogenase Troponin T C-Reactive Protein NT-Pro-B Natriuret Pep Total Protein 5.0 L Albumin 2.6 L LDL Cholesterol Direct Vitamin B12 Crossmatch 11/07/21 11/07/21 11/07/21 03:30 04:50 08:07 WBC RBC Hgb Hct MCV MCH MCHC RDW Plt Count Seg Neuts % (Manual) Lymphocytes % (Manual) Seg Neutrophils # Man Lymphocytes # (Manual) Monocytes # (Manual) PT INR D-Dimer ABG pH ABG pO2 296.9 H ABG HCO3 18.1 L ABG O2 Saturation 99.5 H ABG Base Excess -5.9 L ABG Hemoglobin 7.6 L Oxyhemoglobin Sodium Potassium Chloride Carbon Dioxide BUN Creatinine Glucose POC Glucose 106 H 108 H Lactic Acid Calcium Phosphorus Magnesium AST ALT Alkaline Phosphatase Lactate Dehydrogenase Troponin T C-Reactive Protein NT-Pro-B Natriuret Pep Total Protein Albumin LDL Cholesterol Direct Vitamin B12 Crossmatch 11/08/21 11/08/21 11/08/21 03:10 18:05 23:43 WBC RBC Hgb Hct MCV MCH MCHC RDW Plt Count Seg Neuts % (Manual) Lymphocytes % (Manual) Seg Neutrophils # Man Lymphocytes # (Manual) Monocytes # (Manual) PT INR D-Dimer ABG pH ABG pO2 127.4 H ABG HCO3 ABG O2 Saturation ABG Base Excess -3.4 L ABG Hemoglobin 7.4 L Oxyhemoglobin Sodium Potassium Chloride Carbon Dioxide BUN Creatinine Glucose POC Glucose 113 H 141 H Lactic Acid Calcium Phosphorus Magnesium AST ALT Alkaline Phosphatase Lactate Dehydrogenase Troponin T C-Reactive Protein NT-Pro-B Natriuret Pep Total Protein Albumin LDL Cholesterol Direct Vitamin B12 Crossmatch 11/08/21 11/08/21 11/09/21 Unknown Unknown 02:00 WBC 14.5 H RBC 3.35 L Hgb 7.5 L 8.1 L Hct 25.4 L 27.6 L MCV 76 L 76 L MCH 23 L 22 L MCHC RDW 19.9 H 19.9 H Plt Count Seg Neuts % (Manual) Lymphocytes % (Manual) Seg Neutrophils # Man Lymphocytes # (Manual) Monocytes # (Manual) PT INR D-Dimer ABG pH ABG pO2 ABG HCO3 ABG O2 Saturation ABG Base Excess ABG Hemoglobin Oxyhemoglobin Sodium 154 H D Potassium 3.3 L Chloride 120.7 H Carbon Dioxide 20 L BUN 38 H Creatinine Glucose POC Glucose Lactic Acid Calcium 8.3 L Phosphorus Magnesium AST ALT Alkaline Phosphatase Lactate Dehydrogenase Troponin T C-Reactive Protein NT-Pro-B Natriuret Pep Total Protein Albumin LDL Cholesterol Direct Vitamin B12 Crossmatch 11/09/21 11/09/21 11/09/21 02:00 02:31 05:12 WBC RBC Hgb Hct MCV MCH MCHC RDW Plt Count Seg Neuts % (Manual) Lymphocytes % (Manual) Seg Neutrophils # Man Lymphocytes # (Manual) Monocytes # (Manual) PT INR D-Dimer ABG pH 7.479 H ABG pO2 121.3 H ABG HCO3 ABG O2 Saturation ABG Base Excess ABG Hemoglobin 7.3 L Oxyhemoglobin Sodium Potassium Chloride 112.5 H Carbon Dioxide BUN 33 H Creatinine Glucose 161 H POC Glucose 135 H Lactic Acid Calcium Phosphorus Magnesium AST 251 H ALT 481 H Alkaline Phosphatase Lactate Dehydrogenase Troponin T C-Reactive Protein NT-Pro-B Natriuret Pep Total Protein 5.0 L Albumin 2.8 L LDL Cholesterol Direct Vitamin B12 Crossmatch 11/09/21 11/09/21 11/09/21 11:33 16:32 23:28 WBC RBC Hgb Hct MCV MCH MCHC RDW Plt Count Seg Neuts % (Manual) Lymphocytes % (Manual) Seg Neutrophils # Man Lymphocytes # (Manual) Monocytes # (Manual) PT INR D-Dimer ABG pH ABG pO2 ABG HCO3 ABG O2 Saturation ABG Base Excess ABG Hemoglobin Oxyhemoglobin Sodium Potassium Chloride Carbon Dioxide BUN Creatinine Glucose POC Glucose 132 H 133 H 143 H Lactic Acid Calcium Phosphorus Magnesium AST ALT Alkaline Phosphatase Lactate Dehydrogenase Troponin T C-Reactive Protein NT-Pro-B Natriuret Pep Total Protein Albumin LDL Cholesterol Direct Vitamin B12 Crossmatch 11/10/21 11/10/21 11/10/21 04:00 04:00 05:35 WBC 16.0 H RBC 3.61 L Hgb 8.0 L Hct 27.1 L MCV 75 L MCH 22 L MCHC RDW 20.4 H Plt Count Seg Neuts % (Manual) Lymphocytes % (Manual) Seg Neutrophils # Man Lymphocytes # (Manual) Monocytes # (Manual) PT INR D-Dimer ABG pH ABG pO2 ABG HCO3 ABG O2 Saturation ABG Base Excess ABG Hemoglobin Oxyhemoglobin Sodium 149 H Potassium Chloride 114.1 H Carbon Dioxide BUN 31 H Creatinine Glucose 148 H POC Glucose 132 H Lactic Acid Calcium 8.2 L Phosphorus Magnesium AST ALT Alkaline Phosphatase Lactate Dehydrogenase Troponin T C-Reactive Protein NT-Pro-B Natriuret Pep Total Protein Albumin LDL Cholesterol Direct Vitamin B12 Crossmatch 11/10/21 11/10/21 11/10/21 11:31 14:08 15:35 WBC RBC Hgb Hct MCV MCH MCHC RDW Plt Count Seg Neuts % (Manual) Lymphocytes % (Manual) Seg Neutrophils # Man Lymphocytes # (Manual) Monocytes # (Manual) PT INR D-Dimer ABG pH ABG pO2 126.6 H ABG HCO3 ABG O2 Saturation ABG Base Excess ABG Hemoglobin 7.4 L Oxyhemoglobin Sodium Potassium Chloride Carbon Dioxide BUN Creatinine Glucose POC Glucose 147 H Lactic Acid Calcium Phosphorus Magnesium AST ALT Alkaline Phosphatase Lactate Dehydrogenase Troponin T C-Reactive Protein NT-Pro-B Natriuret Pep Total Protein Albumin LDL Cholesterol Direct Vitamin B12 1823 H Crossmatch 11/10/21 11/11/21 11/11/21 17:53 00:55 04:28 WBC RBC Hgb Hct MCV MCH MCHC RDW Plt Count Seg Neuts % (Manual) Lymphocytes % (Manual) Seg Neutrophils # Man Lymphocytes # (Manual) Monocytes # (Manual) PT INR D-Dimer ABG pH ABG pO2 ABG HCO3 ABG O2 Saturation ABG Base Excess ABG Hemoglobin Oxyhemoglobin Sodium 149 H Potassium Chloride 112.2 H Carbon Dioxide BUN 34 H Creatinine Glucose 148 H POC Glucose 140 H 145 H Lactic Acid Calcium 7.9 L Phosphorus Magnesium AST 53 H ALT 203 H Alkaline Phosphatase Lactate Dehydrogenase Troponin T C-Reactive Protein NT-Pro-B Natriuret Pep Total Protein 4.9 L Albumin 2.6 L LDL Cholesterol Direct Vitamin B12 Crossmatch 11/11/21 11/11/21 11/11/21 04:28 04:28 05:28 WBC 20.9 H RBC 3.47 L Hgb 7.5 L Hct 26.0 L MCV 75 L MCH 22 L MCHC 29 L RDW 21.6 H Plt Count 132 L Seg Neuts % (Manual) Lymphocytes % (Manual) Seg Neutrophils # Man Lymphocytes # (Manual) Monocytes # (Manual) PT INR D-Dimer 2655.00 H ABG pH ABG pO2 ABG HCO3 ABG O2 Saturation ABG Base Excess ABG Hemoglobin Oxyhemoglobin Sodium Potassium Chloride Carbon Dioxide BUN Creatinine Glucose POC Glucose 154 H Lactic Acid Calcium Phosphorus Magnesium AST ALT Alkaline Phosphatase Lactate Dehydrogenase Troponin T C-Reactive Protein NT-Pro-B Natriuret Pep Total Protein Albumin LDL Cholesterol Direct Vitamin B12 Crossmatch 11/11/21 11/11/21 11/12/21 12:38 18:13 00:14 WBC RBC Hgb Hct MCV MCH MCHC RDW Plt Count Seg Neuts % (Manual) Lymphocytes % (Manual) Seg Neutrophils # Man Lymphocytes # (Manual) Monocytes # (Manual) PT INR D-Dimer ABG pH ABG pO2 ABG HCO3 ABG O2 Saturation ABG Base Excess ABG Hemoglobin Oxyhemoglobin Sodium Potassium Chloride Carbon Dioxide BUN Creatinine Glucose POC Glucose 137 H 108 H 137 H Lactic Acid Calcium Phosphorus Magnesium AST ALT Alkaline Phosphatase Lactate Dehydrogenase Troponin T C-Reactive Protein NT-Pro-B Natriuret Pep Total Protein Albumin LDL Cholesterol Direct Vitamin B12 Crossmatch 11/12/21 11/12/21 11/12/21 05:40 06:24 11:12 WBC RBC Hgb Hct MCV MCH MCHC RDW Plt Count Seg Neuts % (Manual) Lymphocytes % (Manual) Seg Neutrophils # Man Lymphocytes # (Manual) Monocytes # (Manual) PT INR D-Dimer ABG pH 7.586 H ABG pO2 150.6 H ABG HCO3 27.2 H ABG O2 Saturation 99.1 H ABG Base Excess 5.2 H ABG Hemoglobin 7.5 L Oxyhemoglobin Sodium Potassium Chloride Carbon Dioxide BUN Creatinine Glucose POC Glucose 132 H 140 H Lactic Acid Calcium Phosphorus Magnesium AST ALT Alkaline Phosphatase Lactate Dehydrogenase Troponin T C-Reactive Protein NT-Pro-B Natriuret Pep Total Protein Albumin LDL Cholesterol Direct Vitamin B12 Crossmatch 11/12/21 11/12/21 11/12/21 14:50 14:50 17:13 WBC 19.8 H RBC 3.27 L Hgb 7.1 L Hct 24.5 L MCV 75 L MCH 22 L MCHC 29 L RDW 22.3 H Plt Count Seg Neuts % (Manual) Lymphocytes % (Manual) Seg Neutrophils # Man Lymphocytes # (Manual) Monocytes # (Manual) PT INR D-Dimer ABG pH ABG pO2 ABG HCO3 ABG O2 Saturation ABG Base Excess ABG Hemoglobin Oxyhemoglobin Sodium 150 H Potassium 3.3 L Chloride 112.0 H Carbon Dioxide BUN 40 H Creatinine Glucose 151 H POC Glucose 121 H Lactic Acid Calcium 7.4 L Phosphorus 1.70 L Magnesium 1.40 L AST ALT Alkaline Phosphatase Lactate Dehydrogenase Troponin T C-Reactive Protein NT-Pro-B Natriuret Pep Total Protein Albumin LDL Cholesterol Direct Vitamin B12 Crossmatch 11/12/21 11/13/21 11/13/21 23:19 05:34 06:30 WBC RBC Hgb Hct MCV MCH MCHC RDW Plt Count Seg Neuts % (Manual) Lymphocytes % (Manual) Seg Neutrophils # Man Lymphocytes # (Manual) Monocytes # (Manual) PT INR D-Dimer ABG pH ABG pO2 ABG HCO3 ABG O2 Saturation ABG Base Excess ABG Hemoglobin Oxyhemoglobin Sodium 149 H Potassium Chloride 60.0 L Carbon Dioxide BUN 40 H Creatinine Glucose 146 H POC Glucose 113 H 132 H Lactic Acid Calcium 7.3 L Phosphorus Magnesium 2.40 H AST ALT 72 H Alkaline Phosphatase Lactate Dehydrogenase Troponin T C-Reactive Protein NT-Pro-B Natriuret Pep Total Protein 5.2 L Albumin 2.2 L LDL Cholesterol Direct Vitamin B12 Crossmatch 11/13/21 11/13/21 11/13/21 06:30 08:30 11:19 WBC 21.2 H RBC 3.12 L Hgb 6.8 L Hct 23.2 L MCV 74 L MCH 22 L MCHC 29 L RDW 22.2 H Plt Count 135 L Seg Neuts % (Manual) Lymphocytes % (Manual) Seg Neutrophils # Man Lymphocytes # (Manual) Monocytes # (Manual) PT INR D-Dimer ABG pH ABG pO2 ABG HCO3 ABG O2 Saturation ABG Base Excess ABG Hemoglobin Oxyhemoglobin Sodium Potassium Chloride Carbon Dioxide BUN Creatinine Glucose POC Glucose 136 H Lactic Acid Calcium Phosphorus Magnesium AST ALT Alkaline Phosphatase Lactate Dehydrogenase Troponin T C-Reactive Protein NT-Pro-B Natriuret Pep Total Protein Albumin LDL Cholesterol Direct Vitamin B12 Crossmatch See Detail 11/13/21 11/14/21 11/14/21 18:21 00:01 04:46 WBC 20.0 H RBC 3.41 L Hgb 7.9 L Hct 26.8 L MCV MCH 23 L MCHC 29 L RDW 24.0 H Plt Count Seg Neuts % (Manual) Lymphocytes % (Manual) Seg Neutrophils # Man Lymphocytes # (Manual) Monocytes # (Manual) PT INR D-Dimer ABG pH ABG pO2 ABG HCO3 ABG O2 Saturation ABG Base Excess ABG Hemoglobin Oxyhemoglobin Sodium Potassium Chloride Carbon Dioxide BUN Creatinine Glucose POC Glucose 149 H 141 H Lactic Acid Calcium Phosphorus Magnesium AST ALT Alkaline Phosphatase Lactate Dehydrogenase Troponin T C-Reactive Protein NT-Pro-B Natriuret Pep Total Protein Albumin LDL Cholesterol Direct Vitamin B12 Crossmatch 11/14/21 11/14/21 11/14/21 04:46 05:10 11:10 WBC RBC Hgb Hct MCV MCH MCHC RDW Plt Count Seg Neuts % (Manual) Lymphocytes % (Manual) Seg Neutrophils # Man Lymphocytes # (Manual) Monocytes # (Manual) PT INR D-Dimer ABG pH ABG pO2 ABG HCO3 ABG O2 Saturation ABG Base Excess ABG Hemoglobin Oxyhemoglobin Sodium 148 H Potassium Chloride 113.1 H Carbon Dioxide BUN 43 H Creatinine Glucose 140 H POC Glucose 132 H 133 H Lactic Acid Calcium 7.5 L Phosphorus Magnesium AST ALT Alkaline Phosphatase Lactate Dehydrogenase Troponin T C-Reactive Protein NT-Pro-B Natriuret Pep Total Protein Albumin LDL Cholesterol Direct Vitamin B12 Crossmatch 11/14/21 11/14/21 11/14/21 16:14 17:48 23:23 WBC RBC Hgb Hct MCV MCH MCHC RDW Plt Count Seg Neuts % (Manual) Lymphocytes % (Manual) Seg Neutrophils # Man Lymphocytes # (Manual) Monocytes # (Manual) PT INR D-Dimer ABG pH ABG pO2 ABG HCO3 28.0 H ABG O2 Saturation ABG Base Excess 3.1 H ABG Hemoglobin 5.8 L Oxyhemoglobin 94.8 L Sodium Potassium Chloride Carbon Dioxide BUN Creatinine Glucose POC Glucose 130 H 136 H Lactic Acid Calcium Phosphorus Magnesium AST ALT Alkaline Phosphatase Lactate Dehydrogenase Troponin T C-Reactive Protein NT-Pro-B Natriuret Pep Total Protein Albumin LDL Cholesterol Direct Vitamin B12 Crossmatch 11/15/21 11/15/21 11/15/21 05:20 05:50 05:50 WBC 19.9 H RBC 3.50 L Hgb 8.2 L Hct 27.9 L MCV MCH 23 L MCHC 29 L RDW 24.9 H Plt Count Seg Neuts % (Manual) Lymphocytes % (Manual) Seg Neutrophils # Man Lymphocytes # (Manual) Monocytes # (Manual) PT INR D-Dimer ABG pH ABG pO2 ABG HCO3 ABG O2 Saturation ABG Base Excess ABG Hemoglobin Oxyhemoglobin Sodium 149 H Potassium Chloride 112.0 H Carbon Dioxide BUN 48 H Creatinine Glucose 152 H POC Glucose 137 H Lactic Acid Calcium 7.9 L Phosphorus Magnesium AST ALT Alkaline Phosphatase Lactate Dehydrogenase Troponin T C-Reactive Protein NT-Pro-B Natriuret Pep Total Protein Albumin LDL Cholesterol Direct Vitamin B12 Crossmatch 11/15/21 11/15/21 11/15/21 12:12 17:07 23:24 WBC RBC Hgb Hct MCV MCH MCHC RDW Plt Count Seg Neuts % (Manual) Lymphocytes % (Manual) Seg Neutrophils # Man Lymphocytes # (Manual) Monocytes # (Manual) PT INR D-Dimer ABG pH ABG pO2 ABG HCO3 ABG O2 Saturation ABG Base Excess ABG Hemoglobin Oxyhemoglobin Sodium Potassium Chloride Carbon Dioxide BUN Creatinine Glucose POC Glucose 114 H 135 H 123 H Lactic Acid Calcium Phosphorus Magnesium AST ALT Alkaline Phosphatase Lactate Dehydrogenase Troponin T C-Reactive Protein NT-Pro-B Natriuret Pep Total Protein Albumin LDL Cholesterol Direct Vitamin B12 Crossmatch 11/16/21 11/16/21 11/16/21 05:21 10:00 10:00 WBC 21.7 H RBC 2.57 L Hgb 6.0 L Hct 20.2 L D MCV MCH 24 L MCHC RDW 26.3 H Plt Count Seg Neuts % (Manual) Lymphocytes % (Manual) Seg Neutrophils # Man Lymphocytes # (Manual) Monocytes # (Manual) PT INR D-Dimer ABG pH ABG pO2 ABG HCO3 ABG O2 Saturation ABG Base Excess ABG Hemoglobin Oxyhemoglobin Sodium 153 H Potassium Chloride 114.9 H Carbon Dioxide BUN 74 H Creatinine Glucose 155 H POC Glucose 127 H Lactic Acid Calcium 8.1 L Phosphorus Magnesium AST ALT Alkaline Phosphatase Lactate Dehydrogenase Troponin T C-Reactive Protein NT-Pro-B Natriuret Pep Total Protein Albumin LDL Cholesterol Direct Vitamin B12 Crossmatch 11/16/21 11/16/21 11/16/21 11:34 14:00 15:25 WBC 17.2 H RBC 2.08 L Hgb 4.7 L* Hct 16.2 L* MCV 78 L MCH 23 L MCHC 29 L RDW 26.0 H Plt Count Seg Neuts % (Manual) 87.0 H Lymphocytes % (Manual) 8.0 L Seg Neutrophils # Man 15.0 H Lymphocytes # (Manual) Monocytes # (Manual) 0.9 H PT INR D-Dimer ABG pH ABG pO2 ABG HCO3 ABG O2 Saturation ABG Base Excess ABG Hemoglobin Oxyhemoglobin Sodium Potassium Chloride Carbon Dioxide BUN Creatinine Glucose POC Glucose 131 H Lactic Acid Calcium Phosphorus Magnesium AST ALT Alkaline Phosphatase Lactate Dehydrogenase Troponin T C-Reactive Protein NT-Pro-B Natriuret Pep Total Protein Albumin LDL Cholesterol Direct Vitamin B12 Crossmatch See Detail 11/16/21 11/16/21 11/16/21 15:25 17:21 22:43 WBC RBC Hgb 8.6 L D Hct 27.7 L D MCV MCH MCHC RDW Plt Count Seg Neuts % (Manual) Lymphocytes % (Manual) Seg Neutrophils # Man Lymphocytes # (Manual) Monocytes # (Manual) PT INR D-Dimer ABG pH ABG pO2 ABG HCO3 ABG O2 Saturation ABG Base Excess ABG Hemoglobin Oxyhemoglobin Sodium 148 H Potassium Chloride 113.2 H Carbon Dioxide BUN 84 H Creatinine Glucose 164 H POC Glucose 124 H Lactic Acid Calcium 7.6 L Phosphorus Magnesium AST ALT Alkaline Phosphatase Lactate Dehydrogenase Troponin T C-Reactive Protein NT-Pro-B Natriuret Pep Total Protein Albumin LDL Cholesterol Direct Vitamin B12 Crossmatch 11/16/21 11/17/21 11/17/21 23:07 05:33 05:56 WBC 25.1 H RBC 3.47 L Hgb 8.7 L Hct 28.5 L MCV MCH 25 L MCHC RDW 22.3 H Plt Count Seg Neuts % (Manual) Lymphocytes % (Manual) Seg Neutrophils # Man Lymphocytes # (Manual) Monocytes # (Manual) PT INR D-Dimer ABG pH ABG pO2 ABG HCO3 ABG O2 Saturation ABG Base Excess ABG Hemoglobin Oxyhemoglobin Sodium Potassium Chloride Carbon Dioxide BUN Creatinine Glucose POC Glucose 128 H 133 H Lactic Acid Calcium Phosphorus Magnesium AST ALT Alkaline Phosphatase Lactate Dehydrogenase Troponin T C-Reactive Protein NT-Pro-B Natriuret Pep Total Protein Albumin LDL Cholesterol Direct Vitamin B12 Crossmatch 11/17/21 11/17/21 11/17/21 05:56 11:00 11:55 WBC RBC Hgb 8.3 L Hct 26.9 L MCV MCH MCHC RDW Plt Count Seg Neuts % (Manual) Lymphocytes % (Manual) Seg Neutrophils # Man Lymphocytes # (Manual) Monocytes # (Manual) PT INR D-Dimer ABG pH ABG pO2 ABG HCO3 ABG O2 Saturation ABG Base Excess ABG Hemoglobin Oxyhemoglobin Sodium 151 H Potassium Chloride 113.6 H Carbon Dioxide BUN 85 H Creatinine Glucose 132 H POC Glucose 121 H Lactic Acid Calcium 7.8 L Phosphorus Magnesium AST ALT Alkaline Phosphatase Lactate Dehydrogenase Troponin T C-Reactive Protein NT-Pro-B Natriuret Pep Total Protein 5.1 L Albumin 2.2 L LDL Cholesterol Direct Vitamin B12 Crossmatch 11/17/21 11/17/21 11/18/21 18:04 18:55 00:26 WBC RBC Hgb 7.5 L 7.1 L Hct 24.8 L 23.6 L MCV MCH MCHC RDW Plt Count Seg Neuts % (Manual) Lymphocytes % (Manual) Seg Neutrophils # Man Lymphocytes # (Manual) Monocytes # (Manual) PT INR D-Dimer ABG pH ABG pO2 ABG HCO3 ABG O2 Saturation ABG Base Excess ABG Hemoglobin Oxyhemoglobin Sodium Potassium Chloride Carbon Dioxide BUN Creatinine Glucose POC Glucose 144 H Lactic Acid Calcium Phosphorus Magnesium AST ALT Alkaline Phosphatase Lactate Dehydrogenase Troponin T C-Reactive Protein NT-Pro-B Natriuret Pep Total Protein Albumin LDL Cholesterol Direct Vitamin B12 Crossmatch 11/18/21 11/18/21 11/18/21 00:43 05:10 05:10 WBC 12.5 H RBC 2.39 L Hgb 6.1 L Hct 20.2 L MCV MCH 25 L MCHC RDW 23.2 H Plt Count Seg Neuts % (Manual) Lymphocytes % (Manual) Seg Neutrophils # Man Lymphocytes # (Manual) Monocytes # (Manual) PT INR D-Dimer ABG pH ABG pO2 ABG HCO3 ABG O2 Saturation ABG Base Excess ABG Hemoglobin Oxyhemoglobin Sodium 131 L D Potassium 2.9 L* D Chloride 97.8 L Carbon Dioxide BUN 58 H Creatinine Glucose 665 H* POC Glucose 139 H Lactic Acid Calcium 7.0 L Phosphorus 2.20 L D Magnesium 1.50 L AST ALT Alkaline Phosphatase Lactate Dehydrogenase Troponin T C-Reactive Protein NT-Pro-B Natriuret Pep Total Protein Albumin LDL Cholesterol Direct Vitamin B12 Crossmatch 11/18/21 11/18/21 11/18/21 05:23 07:10 10:45 WBC RBC Hgb Hct MCV MCH MCHC RDW Plt Count Seg Neuts % (Manual) Lymphocytes % (Manual) Seg Neutrophils # Man Lymphocytes # (Manual) Monocytes # (Manual) PT INR D-Dimer ABG pH ABG pO2 ABG HCO3 ABG O2 Saturation ABG Base Excess ABG Hemoglobin Oxyhemoglobin Sodium 148 H D Potassium 3.1 L Chloride 111.9 H Carbon Dioxide BUN 63 H Creatinine Glucose 141 H POC Glucose 124 H Lactic Acid Calcium 8.1 L D Phosphorus Magnesium AST ALT Alkaline Phosphatase Lactate Dehydrogenase Troponin T C-Reactive Protein NT-Pro-B Natriuret Pep Total Protein Albumin LDL Cholesterol Direct Vitamin B12 Crossmatch See Detail 11/18/21 11/19/21 11/19/21 11:57 00:19 04:55 WBC RBC 3.35 L Hgb 9.0 L 8.9 L Hct 28.3 L D 28.1 L MCV MCH 27 L MCHC RDW 20.3 H Plt Count Seg Neuts % (Manual) Lymphocytes % (Manual) Seg Neutrophils # Man Lymphocytes # (Manual) Monocytes # (Manual) PT INR D-Dimer ABG pH ABG pO2 ABG HCO3 ABG O2 Saturation ABG Base Excess ABG Hemoglobin Oxyhemoglobin Sodium Potassium Chloride Carbon Dioxide BUN Creatinine Glucose POC Glucose 119 H Lactic Acid Calcium Phosphorus Magnesium AST ALT Alkaline Phosphatase Lactate Dehydrogenase Troponin T C-Reactive Protein NT-Pro-B Natriuret Pep Total Protein Albumin LDL Cholesterol Direct Vitamin B12 Crossmatch 11/19/21 11/19/21 11/20/21 04:55 05:42 00:55 WBC RBC Hgb 9.0 L Hct 28.6 L MCV MCH MCHC RDW Plt Count Seg Neuts % (Manual) Lymphocytes % (Manual) Seg Neutrophils # Man Lymphocytes # (Manual) Monocytes # (Manual) PT INR D-Dimer ABG pH ABG pO2 ABG HCO3 ABG O2 Saturation ABG Base Excess ABG Hemoglobin Oxyhemoglobin Sodium Potassium 3.5 L Chloride 108.6 H Carbon Dioxide BUN 47 H Creatinine Glucose 207 H POC Glucose 63 L Lactic Acid Calcium 7.1 L Phosphorus Magnesium AST ALT Alkaline Phosphatase Lactate Dehydrogenase Troponin T C-Reactive Protein NT-Pro-B Natriuret Pep Total Protein Albumin LDL Cholesterol Direct Vitamin B12 Crossmatch 11/20/21 11/20/21 11/20/21 05:40 05:40 Unknown WBC RBC 3.40 L Hgb 9.1 L Hct 28.8 L MCV MCH 27 L MCHC RDW 20.7 H Plt Count Seg Neuts % (Manual) Lymphocytes % (Manual) Seg Neutrophils # Man Lymphocytes # (Manual) Monocytes # (Manual) PT INR D-Dimer ABG pH ABG pO2 ABG HCO3 ABG O2 Saturation ABG Base Excess -2.7 L ABG Hemoglobin 9.5 L Oxyhemoglobin 94.3 L Sodium Potassium 3.5 L Chloride 108.9 H Carbon Dioxide BUN 37 H Creatinine Glucose 117 H POC Glucose Lactic Acid Calcium 7.5 L Phosphorus Magnesium AST ALT Alkaline Phosphatase Lactate Dehydrogenase Troponin T C-Reactive Protein NT-Pro-B Natriuret Pep Total Protein Albumin LDL Cholesterol Direct Vitamin B12 Crossmatch 11/21/21 11/21/21 11/21/21 04:30 04:30 16:00 WBC RBC 3.25 L Hgb 8.6 L Hct 28.1 L MCV MCH 26 L MCHC RDW 20.7 H Plt Count Seg Neuts % (Manual) Lymphocytes % (Manual) Seg Neutrophils # Man Lymphocytes # (Manual) Monocytes # (Manual) PT INR D-Dimer ABG pH ABG pO2 114.2 H ABG HCO3 ABG O2 Saturation ABG Base Excess ABG Hemoglobin 9.1 L Oxyhemoglobin Sodium 134 L Potassium Chloride Carbon Dioxide 20 L BUN 34 H Creatinine Glucose POC Glucose Lactic Acid Calcium 7.1 L Phosphorus Magnesium AST ALT Alkaline Phosphatase Lactate Dehydrogenase Troponin T C-Reactive Protein NT-Pro-B Natriuret Pep Total Protein Albumin LDL Cholesterol Direct Vitamin B12 Crossmatch 11/22/21 11/22/21 11/22/21 07:07 07:07 23:54 WBC RBC 3.30 L Hgb 9.0 L Hct 28.5 L MCV MCH 27 L MCHC RDW 21.0 H Plt Count Seg Neuts % (Manual) Lymphocytes % (Manual) Seg Neutrophils # Man Lymphocytes # (Manual) Monocytes # (Manual) PT INR D-Dimer ABG pH ABG pO2 ABG HCO3 ABG O2 Saturation ABG Base Excess ABG Hemoglobin Oxyhemoglobin Sodium Potassium Chloride Carbon Dioxide BUN 32 H Creatinine Glucose 106 H POC Glucose 110 H Lactic Acid Calcium 7.5 L Phosphorus Magnesium AST ALT Alkaline Phosphatase Lactate Dehydrogenase Troponin T C-Reactive Protein NT-Pro-B Natriuret Pep Total Protein Albumin LDL Cholesterol Direct Vitamin B12 Crossmatch 11/23/21 11/23/21 11/23/21 04:38 04:38 06:01 WBC RBC 3.23 L Hgb 8.8 L Hct 28.0 L MCV MCH 27 L MCHC RDW 21.3 H Plt Count Seg Neuts % (Manual) Lymphocytes % (Manual) Seg Neutrophils # Man Lymphocytes # (Manual) Monocytes # (Manual) PT INR D-Dimer ABG pH ABG pO2 ABG HCO3 ABG O2 Saturation ABG Base Excess ABG Hemoglobin Oxyhemoglobin Sodium 136 L Potassium Chloride Carbon Dioxide 20 L BUN 32 H Creatinine Glucose 109 H POC Glucose 115 H Lactic Acid Calcium 7.7 L Phosphorus Magnesium AST ALT Alkaline Phosphatase Lactate Dehydrogenase Troponin T C-Reactive Protein NT-Pro-B Natriuret Pep Total Protein Albumin LDL Cholesterol Direct Vitamin B12 Crossmatch 11/23/21 11/24/21 11/24/21 11:40 00:03 04:13 WBC RBC 3.18 L Hgb 8.5 L Hct 27.5 L MCV MCH 27 L MCHC RDW 21.6 H Plt Count Seg Neuts % (Manual) Lymphocytes % (Manual) Seg Neutrophils # Man Lymphocytes # (Manual) Monocytes # (Manual) PT INR D-Dimer ABG pH ABG pO2 ABG HCO3 ABG O2 Saturation ABG Base Excess ABG Hemoglobin Oxyhemoglobin Sodium Potassium Chloride Carbon Dioxide BUN Creatinine Glucose POC Glucose 117 H 111 H Lactic Acid Calcium Phosphorus Magnesium AST ALT Alkaline Phosphatase Lactate Dehydrogenase Troponin T C-Reactive Protein NT-Pro-B Natriuret Pep Total Protein Albumin LDL Cholesterol Direct Vitamin B12 Crossmatch 11/24/21 11/24/21 11/24/21 04:13 05:30 11:10 WBC RBC Hgb Hct MCV MCH MCHC RDW Plt Count Seg Neuts % (Manual) Lymphocytes % (Manual) Seg Neutrophils # Man Lymphocytes # (Manual) Monocytes # (Manual) PT INR D-Dimer ABG pH ABG pO2 ABG HCO3 ABG O2 Saturation ABG Base Excess ABG Hemoglobin Oxyhemoglobin Sodium Potassium Chloride Carbon Dioxide BUN 31 H Creatinine Glucose 101 H POC Glucose 115 H 107 H Lactic Acid Calcium 7.7 L Phosphorus Magnesium AST ALT Alkaline Phosphatase Lactate Dehydrogenase Troponin T C-Reactive Protein NT-Pro-B Natriuret Pep Total Protein Albumin LDL Cholesterol Direct Vitamin B12 Crossmatch 11/24/21 11/24/21 11/25/21 16:34 17:57 05:12 WBC RBC 3.11 L Hgb 8.2 L Hct 26.6 L MCV MCH 26 L MCHC RDW 21.3 H Plt Count Seg Neuts % (Manual) Lymphocytes % (Manual) Seg Neutrophils # Man Lymphocytes # (Manual) Monocytes # (Manual) PT INR D-Dimer ABG pH ABG pO2 ABG HCO3 ABG O2 Saturation ABG Base Excess ABG Hemoglobin Oxyhemoglobin Sodium Potassium Chloride Carbon Dioxide BUN Creatinine Glucose POC Glucose 115 H 110 H Lactic Acid Calcium Phosphorus Magnesium AST ALT Alkaline Phosphatase Lactate Dehydrogenase Troponin T C-Reactive Protein NT-Pro-B Natriuret Pep Total Protein Albumin LDL Cholesterol Direct Vitamin B12 Crossmatch 11/25/21 11/25/21 11/26/21 05:12 11:20 05:00 WBC RBC 3.30 L Hgb 8.8 L Hct 28.2 L MCV MCH 27 L MCHC RDW 20.7 H Plt Count Seg Neuts % (Manual) Lymphocytes % (Manual) Seg Neutrophils # Man Lymphocytes # (Manual) Monocytes # (Manual) PT INR D-Dimer ABG pH ABG pO2 ABG HCO3 ABG O2 Saturation ABG Base Excess ABG Hemoglobin Oxyhemoglobin Sodium Potassium Chloride Carbon Dioxide BUN 32 H Creatinine Glucose 118 H POC Glucose 118 H Lactic Acid Calcium 8.2 L Phosphorus Magnesium AST ALT Alkaline Phosphatase Lactate Dehydrogenase Troponin T C-Reactive Protein NT-Pro-B Natriuret Pep Total Protein Albumin LDL Cholesterol Direct Vitamin B12 Crossmatch 11/26/21 11/26/21 11/26/21 05:00 05:00 05:44 WBC RBC Hgb Hct MCV MCH MCHC RDW Plt Count Seg Neuts % (Manual) Lymphocytes % (Manual) Seg Neutrophils # Man Lymphocytes # (Manual) Monocytes # (Manual) PT 16.9 H INR 1.24 H D-Dimer ABG pH ABG pO2 ABG HCO3 ABG O2 Saturation ABG Base Excess ABG Hemoglobin Oxyhemoglobin Sodium Potassium Chloride Carbon Dioxide BUN 31 H Creatinine Glucose 104 H POC Glucose 110 H Lactic Acid Calcium 7.9 L Phosphorus Magnesium AST ALT Alkaline Phosphatase Lactate Dehydrogenase Troponin T C-Reactive Protein NT-Pro-B Natriuret Pep Total Protein Albumin LDL Cholesterol Direct Vitamin B12 Crossmatch 11/26/21 11/27/21 11/27/21 23:55 07:40 07:40 WBC RBC 3.18 L Hgb 8.5 L Hct 27.0 L MCV MCH 27 L MCHC RDW 21.2 H Plt Count Seg Neuts % (Manual) Lymphocytes % (Manual) Seg Neutrophils # Man Lymphocytes # (Manual) Monocytes # (Manual) PT INR D-Dimer ABG pH ABG pO2 ABG HCO3 ABG O2 Saturation ABG Base Excess ABG Hemoglobin Oxyhemoglobin Sodium Potassium Chloride Carbon Dioxide BUN 27 H Creatinine Glucose 112 H POC Glucose 63 L Lactic Acid Calcium 7.6 L Phosphorus Magnesium AST ALT Alkaline Phosphatase Lactate Dehydrogenase Troponin T C-Reactive Protein NT-Pro-B Natriuret Pep Total Protein Albumin LDL Cholesterol Direct Vitamin B12 Crossmatch 11/27/21 11/27/21 11/27/21 12:04 13:40 13:40 WBC RBC 3.31 L Hgb 8.7 L Hct 28.0 L MCV MCH 26 L MCHC RDW 20.7 H Plt Count Seg Neuts % (Manual) Lymphocytes % (Manual) Seg Neutrophils # Man Lymphocytes # (Manual) Monocytes # (Manual) PT INR D-Dimer ABG pH ABG pO2 ABG HCO3 ABG O2 Saturation ABG Base Excess ABG Hemoglobin Oxyhemoglobin Sodium 136 L Potassium Chloride Carbon Dioxide BUN 25 H Creatinine Glucose 127 H POC Glucose 109 H Lactic Acid Calcium 7.6 L Phosphorus Magnesium 1.40 L AST ALT Alkaline Phosphatase Lactate Dehydrogenase Troponin T C-Reactive Protein NT-Pro-B Natriuret Pep Total Protein Albumin LDL Cholesterol Direct Vitamin B12 Crossmatch 11/27/21 11/27/21 11/28/21 17:44 23:33 12:20 WBC RBC Hgb Hct MCV MCH MCHC RDW Plt Count Seg Neuts % (Manual) Lymphocytes % (Manual) Seg Neutrophils # Man Lymphocytes # (Manual) Monocytes # (Manual) PT INR D-Dimer ABG pH ABG pO2 ABG HCO3 ABG O2 Saturation ABG Base Excess ABG Hemoglobin Oxyhemoglobin Sodium Potassium Chloride Carbon Dioxide BUN Creatinine Glucose POC Glucose 107 H 108 H 114 H Lactic Acid Calcium Phosphorus Magnesium AST ALT Alkaline Phosphatase Lactate Dehydrogenase Troponin T C-Reactive Protein NT-Pro-B Natriuret Pep Total Protein Albumin LDL Cholesterol Direct Vitamin B12 Crossmatch 11/29/21 11/29/21 11/29/21 00:09 03:20 03:20 WBC RBC 3.05 L Hgb 8.2 L Hct 25.8 L MCV MCH 27 L MCHC RDW 20.9 H Plt Count Seg Neuts % (Manual) Lymphocytes % (Manual) Seg Neutrophils # Man Lymphocytes # (Manual) Monocytes # (Manual) PT INR D-Dimer ABG pH ABG pO2 ABG HCO3 ABG O2 Saturation ABG Base Excess ABG Hemoglobin Oxyhemoglobin Sodium 133 L Potassium Chloride Carbon Dioxide BUN 24 H Creatinine Glucose 137 H POC Glucose 134 H Lactic Acid Calcium 7.4 L Phosphorus Magnesium AST ALT Alkaline Phosphatase Lactate Dehydrogenase Troponin T C-Reactive Protein NT-Pro-B Natriuret Pep Total Protein Albumin LDL Cholesterol Direct Vitamin B12 Crossmatch 11/29/21 11/29/21 11/29/21 05:38 11:39 17:11 WBC RBC Hgb Hct MCV MCH MCHC RDW Plt Count Seg Neuts % (Manual) Lymphocytes % (Manual) Seg Neutrophils # Man Lymphocytes # (Manual) Monocytes # (Manual) PT INR D-Dimer ABG pH ABG pO2 ABG HCO3 ABG O2 Saturation ABG Base Excess ABG Hemoglobin Oxyhemoglobin Sodium Potassium Chloride Carbon Dioxide BUN Creatinine Glucose POC Glucose 117 H 143 H 124 H Lactic Acid Calcium Phosphorus Magnesium AST ALT Alkaline Phosphatase Lactate Dehydrogenase Troponin T C-Reactive Protein NT-Pro-B Natriuret Pep Total Protein Albumin LDL Cholesterol Direct Vitamin B12 Crossmatch 11/29/21 11/30/21 11/30/21 20:15 05:40 05:40 WBC 12.6 H RBC 3.41 L Hgb 9.1 L Hct 28.9 L MCV MCH 27 L MCHC RDW 20.4 H Plt Count Seg Neuts % (Manual) Lymphocytes % (Manual) Seg Neutrophils # Man Lymphocytes # (Manual) Monocytes # (Manual) PT INR D-Dimer ABG pH ABG pO2 ABG HCO3 ABG O2 Saturation ABG Base Excess ABG Hemoglobin Oxyhemoglobin Sodium Potassium Chloride Carbon Dioxide BUN 24 H Creatinine Glucose 131 H POC Glucose Lactic Acid Calcium 7.6 L Phosphorus Magnesium AST ALT Alkaline Phosphatase Lactate Dehydrogenase Troponin T 0.045 H C-Reactive Protein NT-Pro-B Natriuret Pep Total Protein Albumin LDL Cholesterol Direct 25 L Vitamin B12 Crossmatch 11/30/21 11/30/21 12/01/21 11:29 16:51 05:00 WBC RBC 2.97 L Hgb 8.0 L Hct 25.0 L MCV MCH 27 L MCHC RDW 20.8 H Plt Count Seg Neuts % (Manual) Lymphocytes % (Manual) Seg Neutrophils # Man Lymphocytes # (Manual) Monocytes # (Manual) PT INR D-Dimer ABG pH ABG pO2 ABG HCO3 ABG O2 Saturation ABG Base Excess ABG Hemoglobin Oxyhemoglobin Sodium Potassium Chloride Carbon Dioxide BUN Creatinine Glucose POC Glucose 123 H 114 H Lactic Acid Calcium Phosphorus Magnesium AST ALT Alkaline Phosphatase Lactate Dehydrogenase Troponin T C-Reactive Protein NT-Pro-B Natriuret Pep Total Protein Albumin LDL Cholesterol Direct Vitamin B12 Crossmatch 12/01/21 12/01/21 12/01/21 05:00 05:25 11:54 WBC RBC Hgb Hct MCV MCH MCHC RDW Plt Count Seg Neuts % (Manual) Lymphocytes % (Manual) Seg Neutrophils # Man Lymphocytes # (Manual) Monocytes # (Manual) PT INR D-Dimer ABG pH ABG pO2 ABG HCO3 ABG O2 Saturation ABG Base Excess ABG Hemoglobin Oxyhemoglobin Sodium 136 L Potassium Chloride Carbon Dioxide BUN 24 H Creatinine Glucose 117 H POC Glucose 108 H 107 H Lactic Acid Calcium 7.5 L Phosphorus Magnesium 1.60 L AST ALT Alkaline Phosphatase Lactate Dehydrogenase Troponin T C-Reactive Protein NT-Pro-B Natriuret Pep Total Protein Albumin LDL Cholesterol Direct Vitamin B12 Crossmatch 12/01/21 12/02/21 12/02/21 17:40 00:07 04:20 WBC RBC 2.92 L Hgb 7.7 L Hct 24.3 L MCV MCH 26 L MCHC RDW 20.5 H Plt Count Seg Neuts % (Manual) Lymphocytes % (Manual) Seg Neutrophils # Man Lymphocytes # (Manual) Monocytes # (Manual) PT INR D-Dimer ABG pH ABG pO2 ABG HCO3 ABG O2 Saturation ABG Base Excess ABG Hemoglobin Oxyhemoglobin Sodium Potassium Chloride Carbon Dioxide BUN Creatinine Glucose POC Glucose 123 H 110 H Lactic Acid Calcium Phosphorus Magnesium AST ALT Alkaline Phosphatase Lactate Dehydrogenase Troponin T C-Reactive Protein NT-Pro-B Natriuret Pep Total Protein Albumin LDL Cholesterol Direct Vitamin B12 Crossmatch 12/02/21 12/02/21 12/02/21 04:20 11:17 18:20 WBC RBC Hgb Hct MCV MCH MCHC RDW Plt Count Seg Neuts % (Manual) Lymphocytes % (Manual) Seg Neutrophils # Man Lymphocytes # (Manual) Monocytes # (Manual) PT INR D-Dimer ABG pH ABG pO2 ABG HCO3 ABG O2 Saturation ABG Base Excess ABG Hemoglobin Oxyhemoglobin Sodium 135 L Potassium Chloride Carbon Dioxide BUN 26 H Creatinine Glucose 121 H POC Glucose 117 H 113 H Lactic Acid Calcium 7.4 L Phosphorus Magnesium AST ALT Alkaline Phosphatase Lactate Dehydrogenase Troponin T C-Reactive Protein NT-Pro-B Natriuret Pep Total Protein Albumin LDL Cholesterol Direct Vitamin B12 Crossmatch 12/03/21 12/03/21 12/03/21 00:12 04:00 04:00 WBC RBC 2.99 L Hgb 7.8 L Hct 24.6 L MCV MCH 26 L MCHC RDW 20.2 H Plt Count Seg Neuts % (Manual) Lymphocytes % (Manual) Seg Neutrophils # Man Lymphocytes # (Manual) Monocytes # (Manual) PT INR D-Dimer ABG pH ABG pO2 ABG HCO3 ABG O2 Saturation ABG Base Excess ABG Hemoglobin Oxyhemoglobin Sodium 136 L Potassium Chloride Carbon Dioxide BUN 27 H Creatinine Glucose 133 H POC Glucose 121 H Lactic Acid Calcium 7.5 L Phosphorus Magnesium AST ALT Alkaline Phosphatase Lactate Dehydrogenase Troponin T C-Reactive Protein NT-Pro-B Natriuret Pep Total Protein Albumin LDL Cholesterol Direct Vitamin B12 Crossmatch 12/03/21 12/03/21 12/03/21 06:30 11:13 16:00 WBC RBC Hgb Hct MCV MCH MCHC RDW Plt Count Seg Neuts % (Manual) Lymphocytes % (Manual) Seg Neutrophils # Man Lymphocytes # (Manual) Monocytes # (Manual) PT INR D-Dimer ABG pH ABG pO2 ABG HCO3 ABG O2 Saturation ABG Base Excess ABG Hemoglobin Oxyhemoglobin Sodium Potassium Chloride Carbon Dioxide BUN Creatinine Glucose POC Glucose 129 H 125 H 125 H Lactic Acid Calcium Phosphorus Magnesium AST ALT Alkaline Phosphatase Lactate Dehydrogenase Troponin T C-Reactive Protein NT-Pro-B Natriuret Pep Total Protein Albumin LDL Cholesterol Direct Vitamin B12 Crossmatch 12/03/21 12/04/21 12/04/21 23:32 04:00 05:36 WBC RBC Hgb Hct MCV MCH MCHC RDW Plt Count Seg Neuts % (Manual) Lymphocytes % (Manual) Seg Neutrophils # Man Lymphocytes # (Manual) Monocytes # (Manual) PT INR D-Dimer ABG pH ABG pO2 ABG HCO3 ABG O2 Saturation ABG Base Excess ABG Hemoglobin Oxyhemoglobin Sodium Potassium 3.5 L Chloride Carbon Dioxide BUN 26 H Creatinine 0.5 L Glucose 151 H POC Glucose 133 H 142 H Lactic Acid Calcium 8.3 L Phosphorus Magnesium AST ALT Alkaline Phosphatase Lactate Dehydrogenase Troponin T C-Reactive Protein NT-Pro-B Natriuret Pep Total Protein Albumin LDL Cholesterol Direct Vitamin B12 Crossmatch 12/04/21 12/04/21 12/05/21 11:24 15:58 04:36 WBC RBC Hgb Hct MCV MCH MCHC RDW Plt Count Seg Neuts % (Manual) Lymphocytes % (Manual) Seg Neutrophils # Man Lymphocytes # (Manual) Monocytes # (Manual) PT INR D-Dimer ABG pH ABG pO2 ABG HCO3 ABG O2 Saturation ABG Base Excess ABG Hemoglobin Oxyhemoglobin Sodium Potassium Chloride Carbon Dioxide BUN 21 H Creatinine 0.5 L Glucose 119 H POC Glucose 130 H 111 H Lactic Acid Calcium 8.3 L Phosphorus Magnesium AST ALT Alkaline Phosphatase Lactate Dehydrogenase Troponin T C-Reactive Protein NT-Pro-B Natriuret Pep Total Protein Albumin LDL Cholesterol Direct Vitamin B12 Crossmatch 12/05/21 12/05/21 12/05/21 05:15 10:40 11:12 WBC RBC 2.98 L Hgb 8.1 L Hct 24.6 L MCV MCH 27 L MCHC RDW 20.8 H Plt Count Seg Neuts % (Manual) Lymphocytes % (Manual) Seg Neutrophils # Man Lymphocytes # (Manual) Monocytes # (Manual) PT INR D-Dimer ABG pH ABG pO2 ABG HCO3 ABG O2 Saturation ABG Base Excess ABG Hemoglobin Oxyhemoglobin Sodium Potassium Chloride Carbon Dioxide BUN Creatinine Glucose POC Glucose 107 H 110 H Lactic Acid Calcium Phosphorus Magnesium AST ALT Alkaline Phosphatase Lactate Dehydrogenase Troponin T C-Reactive Protein NT-Pro-B Natriuret Pep Total Protein Albumin LDL Cholesterol Direct Vitamin B12 Crossmatch 12/05/21 12/06/21 12/06/21 23:39 04:25 04:25 WBC RBC 2.95 L Hgb 7.9 L Hct 24.7 L MCV MCH 27 L MCHC RDW 20.9 H Plt Count Seg Neuts % (Manual) Lymphocytes % (Manual) Seg Neutrophils # Man Lymphocytes # (Manual) Monocytes # (Manual) PT INR D-Dimer ABG pH ABG pO2 ABG HCO3 ABG O2 Saturation ABG Base Excess ABG Hemoglobin Oxyhemoglobin Sodium Potassium Chloride Carbon Dioxide BUN 22 H Creatinine 0.5 L Glucose 136 H POC Glucose 118 H Lactic Acid Calcium 8.2 L Phosphorus Magnesium AST ALT Alkaline Phosphatase Lactate Dehydrogenase Troponin T C-Reactive Protein NT-Pro-B Natriuret Pep Total Protein Albumin LDL Cholesterol Direct Vitamin B12 Crossmatch 12/06/21 12/06/21 12/07/21 05:28 11:27 04:00 WBC RBC Hgb 7.2 L Hct 21.8 L MCV MCH MCHC RDW Plt Count Seg Neuts % (Manual) Lymphocytes % (Manual) Seg Neutrophils # Man Lymphocytes # (Manual) Monocytes # (Manual) PT INR D-Dimer ABG pH ABG pO2 ABG HCO3 ABG O2 Saturation ABG Base Excess ABG Hemoglobin Oxyhemoglobin Sodium Potassium Chloride Carbon Dioxide BUN Creatinine Glucose POC Glucose 142 H 126 H Lactic Acid Calcium Phosphorus Magnesium AST ALT Alkaline Phosphatase Lactate Dehydrogenase Troponin T C-Reactive Protein NT-Pro-B Natriuret Pep Total Protein Albumin LDL Cholesterol Direct Vitamin B12 Crossmatch 12/07/21 12/07/21 12/07/21 04:00 05:30 11:12 WBC RBC Hgb Hct MCV MCH MCHC RDW Plt Count Seg Neuts % (Manual) Lymphocytes % (Manual) Seg Neutrophils # Man Lymphocytes # (Manual) Monocytes # (Manual) PT INR D-Dimer ABG pH ABG pO2 ABG HCO3 ABG O2 Saturation ABG Base Excess ABG Hemoglobin Oxyhemoglobin Sodium Potassium Chloride Carbon Dioxide BUN 22 H Creatinine Glucose 119 H POC Glucose 121 H 124 H Lactic Acid Calcium 8.0 L Phosphorus Magnesium AST ALT Alkaline Phosphatase Lactate Dehydrogenase Troponin T C-Reactive Protein NT-Pro-B Natriuret Pep Total Protein Albumin LDL Cholesterol Direct Vitamin B12 Crossmatch 12/08/21 12/08/21 12/08/21 04:00 04:00 05:39 WBC RBC 2.81 L Hgb 7.7 L Hct 23.5 L MCV MCH MCHC RDW 21.2 H Plt Count Seg Neuts % (Manual) Lymphocytes % (Manual) Seg Neutrophils # Man Lymphocytes # (Manual) Monocytes # (Manual) PT INR D-Dimer ABG pH ABG pO2 ABG HCO3 ABG O2 Saturation ABG Base Excess ABG Hemoglobin Oxyhemoglobin Sodium 135 L Potassium Chloride Carbon Dioxide BUN 23 H Creatinine Glucose 109 H POC Glucose 112 H Lactic Acid Calcium Phosphorus Magnesium AST ALT Alkaline Phosphatase Lactate Dehydrogenase Troponin T C-Reactive Protein NT-Pro-B Natriuret Pep Total Protein Albumin LDL Cholesterol Direct Vitamin B12 Crossmatch 12/08/21 12/09/21 12/09/21 11:03 04:20 04:20 WBC RBC 2.67 L Hgb 7.6 L Hct 22.1 L MCV MCH MCHC RDW 20.8 H Plt Count Seg Neuts % (Manual) Lymphocytes % (Manual) Seg Neutrophils # Man Lymphocytes # (Manual) Monocytes # (Manual) PT INR D-Dimer ABG pH ABG pO2 ABG HCO3 ABG O2 Saturation ABG Base Excess ABG Hemoglobin Oxyhemoglobin Sodium 135 L Potassium Chloride 97.8 L Carbon Dioxide BUN 26 H Creatinine Glucose 119 H POC Glucose 108 H Lactic Acid Calcium 7.7 L Phosphorus Magnesium AST ALT Alkaline Phosphatase Lactate Dehydrogenase Troponin T C-Reactive Protein NT-Pro-B Natriuret Pep Total Protein Albumin LDL Cholesterol Direct Vitamin B12 Crossmatch 12/09/21 12/10/21 12/10/21 11:26 04:33 11:12 WBC RBC Hgb Hct MCV MCH MCHC RDW Plt Count Seg Neuts % (Manual) Lymphocytes % (Manual) Seg Neutrophils # Man Lymphocytes # (Manual) Monocytes # (Manual) PT INR D-Dimer ABG pH ABG pO2 ABG HCO3 ABG O2 Saturation ABG Base Excess ABG Hemoglobin Oxyhemoglobin Sodium 136 L Potassium Chloride Carbon Dioxide BUN 27 H Creatinine Glucose 117 H POC Glucose 110 H 117 H Lactic Acid Calcium 8.2 L Phosphorus Magnesium AST ALT Alkaline Phosphatase Lactate Dehydrogenase Troponin T C-Reactive Protein NT-Pro-B Natriuret Pep Total Protein Albumin LDL Cholesterol Direct Vitamin B12 Crossmatch 12/10/21 12/10/21 12/11/21 16:02 23:31 04:35 WBC RBC 2.57 L Hgb 7.0 L Hct 21.4 L MCV MCH 27 L MCHC RDW 21.1 H Plt Count Seg Neuts % (Manual) Lymphocytes % (Manual) Seg Neutrophils # Man Lymphocytes # (Manual) Monocytes # (Manual) PT INR D-Dimer ABG pH ABG pO2 ABG HCO3 ABG O2 Saturation ABG Base Excess ABG Hemoglobin Oxyhemoglobin Sodium Potassium Chloride Carbon Dioxide BUN Creatinine Glucose POC Glucose 137 H 111 H Lactic Acid Calcium Phosphorus Magnesium AST ALT Alkaline Phosphatase Lactate Dehydrogenase Troponin T C-Reactive Protein NT-Pro-B Natriuret Pep Total Protein Albumin LDL Cholesterol Direct Vitamin B12 Crossmatch 12/11/21 12/11/21 12/11/21 04:35 12:46 16:07 WBC RBC Hgb Hct MCV MCH MCHC RDW Plt Count Seg Neuts % (Manual) Lymphocytes % (Manual) Seg Neutrophils # Man Lymphocytes # (Manual) Monocytes # (Manual) PT INR D-Dimer ABG pH ABG pO2 ABG HCO3 ABG O2 Saturation ABG Base Excess ABG Hemoglobin Oxyhemoglobin Sodium 136 L Potassium Chloride Carbon Dioxide BUN 27 H Creatinine Glucose 112 H POC Glucose 115 H 111 H Lactic Acid Calcium 7.6 L Phosphorus Magnesium AST ALT Alkaline Phosphatase Lactate Dehydrogenase Troponin T C-Reactive Protein NT-Pro-B Natriuret Pep Total Protein Albumin LDL Cholesterol Direct Vitamin B12 Crossmatch 12/11/21 12/12/21 12/12/21 23:42 04:30 04:30 WBC RBC 2.60 L Hgb 7.1 L Hct 21.5 L MCV MCH 27 L MCHC RDW 20.3 H Plt Count Seg Neuts % (Manual) Lymphocytes % (Manual) Seg Neutrophils # Man Lymphocytes # (Manual) Monocytes # (Manual) PT INR D-Dimer ABG pH ABG pO2 ABG HCO3 ABG O2 Saturation ABG Base Excess ABG Hemoglobin Oxyhemoglobin Sodium 135 L Potassium Chloride 97.9 L Carbon Dioxide BUN 26 H Creatinine 0.5 L Glucose 138 H POC Glucose 115 H Lactic Acid Calcium 8.2 L Phosphorus Magnesium AST ALT Alkaline Phosphatase Lactate Dehydrogenase Troponin T C-Reactive Protein NT-Pro-B Natriuret Pep Total Protein Albumin LDL Cholesterol Direct Vitamin B12 Crossmatch 12/12/21 12/12/21 12/12/21 04:30 05:10 11:51 WBC RBC Hgb Hct MCV MCH MCHC RDW Plt Count Seg Neuts % (Manual) Lymphocytes % (Manual) Seg Neutrophils # Man Lymphocytes # (Manual) Monocytes # (Manual) PT INR D-Dimer ABG pH ABG pO2 ABG HCO3 ABG O2 Saturation ABG Base Excess ABG Hemoglobin Oxyhemoglobin Sodium Potassium Chloride Carbon Dioxide BUN Creatinine Glucose POC Glucose 119 H 119 H Lactic Acid Calcium Phosphorus Magnesium AST ALT Alkaline Phosphatase Lactate Dehydrogenase Troponin T C-Reactive Protein NT-Pro-B Natriuret Pep Total Protein Albumin LDL Cholesterol Direct Vitamin B12 Crossmatch See Detail 12/13/21 12/13/21 12/13/21 00:52 04:00 04:00 WBC RBC 2.73 L Hgb 7.4 L Hct 22.8 L MCV MCH 27 L MCHC RDW 20.5 H Plt Count Seg Neuts % (Manual) Lymphocytes % (Manual) Seg Neutrophils # Man Lymphocytes # (Manual) Monocytes # (Manual) PT INR D-Dimer ABG pH ABG pO2 ABG HCO3 ABG O2 Saturation ABG Base Excess ABG Hemoglobin Oxyhemoglobin Sodium 134 L Potassium Chloride 96.7 L Carbon Dioxide BUN 23 H Creatinine 0.5 L Glucose 131 H POC Glucose 131 H Lactic Acid Calcium 8.1 L Phosphorus Magnesium AST ALT Alkaline Phosphatase Lactate Dehydrogenase Troponin T C-Reactive Protein NT-Pro-B Natriuret Pep Total Protein Albumin LDL Cholesterol Direct Vitamin B12 Crossmatch 12/13/21 12/13/21 12/13/21 05:23 12:11 17:18 WBC RBC Hgb Hct MCV MCH MCHC RDW Plt Count Seg Neuts % (Manual) Lymphocytes % (Manual) Seg Neutrophils # Man Lymphocytes # (Manual) Monocytes # (Manual) PT INR D-Dimer ABG pH ABG pO2 ABG HCO3 ABG O2 Saturation ABG Base Excess ABG Hemoglobin Oxyhemoglobin Sodium Potassium Chloride Carbon Dioxide BUN Creatinine Glucose POC Glucose 121 H 143 H 148 H Lactic Acid Calcium Phosphorus Magnesium AST ALT Alkaline Phosphatase Lactate Dehydrogenase Troponin T C-Reactive Protein NT-Pro-B Natriuret Pep Total Protein Albumin LDL Cholesterol Direct Vitamin B12 Crossmatch 12/14/21 12/14/21 12/14/21 00:54 04:20 04:20 WBC RBC 2.39 L Hgb 6.5 L Hct 20.3 L MCV MCH 27 L MCHC RDW 20.3 H Plt Count Seg Neuts % (Manual) Lymphocytes % (Manual) Seg Neutrophils # Man Lymphocytes # (Manual) Monocytes # (Manual) PT INR D-Dimer ABG pH ABG pO2 ABG HCO3 ABG O2 Saturation ABG Base Excess ABG Hemoglobin Oxyhemoglobin Sodium 130 L Potassium Chloride 93.5 L Carbon Dioxide BUN 25 H Creatinine Glucose 123 H POC Glucose 123 H Lactic Acid Calcium 8.0 L Phosphorus Magnesium AST ALT Alkaline Phosphatase Lactate Dehydrogenase Troponin T C-Reactive Protein NT-Pro-B Natriuret Pep Total Protein Albumin LDL Cholesterol Direct Vitamin B12 Crossmatch 12/14/21 12/14/21 12/14/21 05:06 08:17 10:30 WBC RBC Hgb Hct MCV MCH MCHC RDW Plt Count Seg Neuts % (Manual) Lymphocytes % (Manual) Seg Neutrophils # Man Lymphocytes # (Manual) Monocytes # (Manual) PT INR D-Dimer ABG pH ABG pO2 ABG HCO3 ABG O2 Saturation ABG Base Excess ABG Hemoglobin Oxyhemoglobin Sodium Potassium Chloride Carbon Dioxide BUN Creatinine Glucose POC Glucose 131 H 119 H Lactic Acid Calcium Phosphorus Magnesium AST ALT Alkaline Phosphatase Lactate Dehydrogenase Troponin T C-Reactive Protein NT-Pro-B Natriuret Pep Total Protein Albumin LDL Cholesterol Direct Vitamin B12 Crossmatch See Detail 12/14/21 12/14/21 12/14/21 12:15 16:37 23:27 WBC RBC Hgb Hct MCV MCH MCHC RDW Plt Count Seg Neuts % (Manual) Lymphocytes % (Manual) Seg Neutrophils # Man Lymphocytes # (Manual) Monocytes # (Manual) PT INR D-Dimer ABG pH ABG pO2 ABG HCO3 ABG O2 Saturation ABG Base Excess ABG Hemoglobin Oxyhemoglobin Sodium Potassium Chloride Carbon Dioxide BUN Creatinine Glucose POC Glucose 147 H 141 H 130 H Lactic Acid Calcium Phosphorus Magnesium AST ALT Alkaline Phosphatase Lactate Dehydrogenase Troponin T C-Reactive Protein NT-Pro-B Natriuret Pep Total Protein Albumin LDL Cholesterol Direct Vitamin B12 Crossmatch 12/15/21 12/15/21 12/15/21 05:00 07:00 07:00 WBC 12.3 H RBC 3.27 L Hgb 8.8 L Hct 27.5 L D MCV MCH 27 L MCHC RDW 19.0 H Plt Count Seg Neuts % (Manual) Lymphocytes % (Manual) Seg Neutrophils # Man Lymphocytes # (Manual) Monocytes # (Manual) PT INR D-Dimer ABG pH ABG pO2 ABG HCO3 ABG O2 Saturation ABG Base Excess ABG Hemoglobin Oxyhemoglobin Sodium 134 L Potassium Chloride 95.7 L Carbon Dioxide BUN 28 H Creatinine Glucose 129 H POC Glucose 129 H Lactic Acid Calcium 8.2 L Phosphorus Magnesium AST ALT Alkaline Phosphatase Lactate Dehydrogenase Troponin T C-Reactive Protein NT-Pro-B Natriuret Pep Total Protein Albumin LDL Cholesterol Direct Vitamin B12 Crossmatch 12/15/21 12/15/21 12/15/21 11:18 16:00 23:39 WBC RBC Hgb Hct MCV MCH MCHC RDW Plt Count Seg Neuts % (Manual) Lymphocytes % (Manual) Seg Neutrophils # Man Lymphocytes # (Manual) Monocytes # (Manual) PT INR D-Dimer ABG pH ABG pO2 ABG HCO3 ABG O2 Saturation ABG Base Excess ABG Hemoglobin Oxyhemoglobin Sodium Potassium Chloride Carbon Dioxide BUN Creatinine Glucose POC Glucose 139 H 137 H 146 H Lactic Acid Calcium Phosphorus Magnesium AST ALT Alkaline Phosphatase Lactate Dehydrogenase Troponin T C-Reactive Protein NT-Pro-B Natriuret Pep Total Protein Albumin LDL Cholesterol Direct Vitamin B12 Crossmatch 12/16/21 12/16/21 12/16/21 05:24 10:21 10:21 WBC 15.3 H RBC 3.24 L Hgb 8.9 L Hct 27.7 L MCV MCH MCHC RDW 19.0 H Plt Count Seg Neuts % (Manual) Lymphocytes % (Manual) Seg Neutrophils # Man Lymphocytes # (Manual) Monocytes # (Manual) PT INR D-Dimer ABG pH ABG pO2 ABG HCO3 ABG O2 Saturation ABG Base Excess ABG Hemoglobin Oxyhemoglobin Sodium 131 L Potassium 3.5 L Chloride 92.7 L Carbon Dioxide BUN 36 H Creatinine Glucose 160 H POC Glucose 121 H Lactic Acid Calcium Phosphorus Magnesium 1.60 L AST ALT Alkaline Phosphatase Lactate Dehydrogenase Troponin T C-Reactive Protein NT-Pro-B Natriuret Pep Total Protein Albumin LDL Cholesterol Direct Vitamin B12 Crossmatch 12/16/21 12/16/21 12/16/21 11:21 18:28 20:52 WBC RBC Hgb Hct MCV MCH MCHC RDW Plt Count Seg Neuts % (Manual) Lymphocytes % (Manual) Seg Neutrophils # Man Lymphocytes # (Manual) Monocytes # (Manual) PT INR D-Dimer ABG pH 7.479 H ABG pO2 79.3 L ABG HCO3 27.3 H ABG O2 Saturation ABG Base Excess 3.6 H ABG Hemoglobin 9.1 L Oxyhemoglobin 94.9 L Sodium Potassium Chloride Carbon Dioxide BUN Creatinine Glucose POC Glucose 153 H 132 H Lactic Acid Calcium Phosphorus Magnesium AST ALT Alkaline Phosphatase Lactate Dehydrogenase Troponin T C-Reactive Protein NT-Pro-B Natriuret Pep Total Protein Albumin LDL Cholesterol Direct Vitamin B12 Crossmatch 12/16/21 12/17/21 12/17/21 23:30 04:25 04:25 WBC 12.3 H RBC 2.16 L Hgb 6.0 L Hct 18.1 L* D MCV MCH MCHC RDW 19.4 H Plt Count Seg Neuts % (Manual) Lymphocytes % (Manual) Seg Neutrophils # Man Lymphocytes # (Manual) Monocytes # (Manual) PT INR D-Dimer ABG pH ABG pO2 ABG HCO3 ABG O2 Saturation ABG Base Excess ABG Hemoglobin Oxyhemoglobin Sodium 132 L Potassium 3.2 L Chloride 112.0 H Carbon Dioxide BUN 32 H Creatinine Glucose 122 H POC Glucose 137 H Lactic Acid Calcium 6.8 L D Phosphorus Magnesium AST ALT Alkaline Phosphatase Lactate Dehydrogenase Troponin T C-Reactive Protein NT-Pro-B Natriuret Pep Total Protein Albumin LDL Cholesterol Direct Vitamin B12 Crossmatch 12/17/21 12/17/21 12/17/21 05:30 11:49 14:45 WBC RBC Hgb 9.7 L D Hct MCV MCH MCHC RDW Plt Count Seg Neuts % (Manual) Lymphocytes % (Manual) Seg Neutrophils # Man Lymphocytes # (Manual) Monocytes # (Manual) PT INR D-Dimer ABG pH ABG pO2 ABG HCO3 ABG O2 Saturation ABG Base Excess ABG Hemoglobin Oxyhemoglobin Sodium Potassium Chloride Carbon Dioxide BUN Creatinine Glucose POC Glucose 137 H 143 H Lactic Acid Calcium Phosphorus Magnesium AST ALT Alkaline Phosphatase Lactate Dehydrogenase Troponin T C-Reactive Protein NT-Pro-B Natriuret Pep Total Protein Albumin LDL Cholesterol Direct Vitamin B12 Crossmatch 12/17/21 12/18/21 12/18/21 17:01 05:04 05:04 WBC 13.8 H RBC 3.44 L Hgb 9.9 L Hct 28.8 L MCV MCH MCHC RDW 18.1 H Plt Count Seg Neuts % (Manual) Lymphocytes % (Manual) Seg Neutrophils # Man Lymphocytes # (Manual) Monocytes # (Manual) PT INR D-Dimer ABG pH ABG pO2 ABG HCO3 ABG O2 Saturation ABG Base Excess ABG Hemoglobin Oxyhemoglobin Sodium 132 L Potassium Chloride 97.4 L Carbon Dioxide BUN 38 H Creatinine Glucose 134 H POC Glucose 132 H Lactic Acid Calcium Phosphorus Magnesium AST ALT Alkaline Phosphatase Lactate Dehydrogenase Troponin T C-Reactive Protein NT-Pro-B Natriuret Pep Total Protein Albumin LDL Cholesterol Direct Vitamin B12 Crossmatch 12/18/21 12/18/21 12/18/21 05:28 10:57 16:27 WBC RBC Hgb Hct MCV MCH MCHC RDW Plt Count Seg Neuts % (Manual) Lymphocytes % (Manual) Seg Neutrophils # Man Lymphocytes # (Manual) Monocytes # (Manual) PT INR D-Dimer ABG pH ABG pO2 ABG HCO3 ABG O2 Saturation ABG Base Excess ABG Hemoglobin Oxyhemoglobin Sodium Potassium Chloride Carbon Dioxide BUN Creatinine Glucose POC Glucose 118 H 132 H 130 H Lactic Acid Calcium Phosphorus Magnesium AST ALT Alkaline Phosphatase Lactate Dehydrogenase Troponin T C-Reactive Protein NT-Pro-B Natriuret Pep Total Protein Albumin LDL Cholesterol Direct Vitamin B12 Crossmatch 12/19/21 12/19/21 12/19/21 00:02 04:41 04:41 WBC 16.0 H RBC 3.45 L Hgb 9.7 L Hct 29.1 L MCV MCH MCHC RDW 17.8 H Plt Count Seg Neuts % (Manual) Lymphocytes % (Manual) Seg Neutrophils # Man Lymphocytes # (Manual) Monocytes # (Manual) PT INR D-Dimer ABG pH ABG pO2 ABG HCO3 ABG O2 Saturation ABG Base Excess ABG Hemoglobin Oxyhemoglobin Sodium 133 L Potassium Chloride 97.9 L Carbon Dioxide BUN 36 H Creatinine 0.5 L Glucose 126 H POC Glucose 127 H Lactic Acid Calcium 8.3 L Phosphorus Magnesium AST ALT Alkaline Phosphatase Lactate Dehydrogenase Troponin T C-Reactive Protein NT-Pro-B Natriuret Pep Total Protein Albumin LDL Cholesterol Direct Vitamin B12 Crossmatch 12/19/21 12/19/21 12/19/21 05:26 12:20 16:43 WBC RBC Hgb Hct MCV MCH MCHC RDW Plt Count Seg Neuts % (Manual) Lymphocytes % (Manual) Seg Neutrophils # Man Lymphocytes # (Manual) Monocytes # (Manual) PT INR D-Dimer ABG pH ABG pO2 ABG HCO3 ABG O2 Saturation ABG Base Excess ABG Hemoglobin Oxyhemoglobin Sodium Potassium Chloride Carbon Dioxide BUN Creatinine Glucose POC Glucose 119 H 145 H 126 H Lactic Acid Calcium Phosphorus Magnesium AST ALT Alkaline Phosphatase Lactate Dehydrogenase Troponin T C-Reactive Protein NT-Pro-B Natriuret Pep Total Protein Albumin LDL Cholesterol Direct Vitamin B12 Crossmatch 12/19/21 12/20/21 12/20/21 23:30 04:54 04:54 WBC 12.3 H RBC 3.54 L Hgb 10.0 L Hct 29.5 L MCV MCH MCHC RDW 17.8 H Plt Count Seg Neuts % (Manual) 88.0 H Lymphocytes % (Manual) 6.0 L Seg Neutrophils # Man 10.8 H Lymphocytes # (Manual) 0.7 L Monocytes # (Manual) PT INR D-Dimer ABG pH ABG pO2 ABG HCO3 ABG O2 Saturation ABG Base Excess ABG Hemoglobin Oxyhemoglobin Sodium 131 L Potassium Chloride 96.2 L Carbon Dioxide BUN 36 H Creatinine 0.5 L Glucose 130 H POC Glucose 117 H Lactic Acid Calcium Phosphorus Magnesium AST ALT Alkaline Phosphatase Lactate Dehydrogenase Troponin T C-Reactive Protein NT-Pro-B Natriuret Pep Total Protein Albumin LDL Cholesterol Direct Vitamin B12 Crossmatch 12/20/21 12/20/21 12/20/21 05:20 11:51 17:30 WBC RBC Hgb Hct MCV MCH MCHC RDW Plt Count Seg Neuts % (Manual) Lymphocytes % (Manual) Seg Neutrophils # Man Lymphocytes # (Manual) Monocytes # (Manual) PT INR D-Dimer ABG pH ABG pO2 ABG HCO3 ABG O2 Saturation ABG Base Excess ABG Hemoglobin Oxyhemoglobin Sodium Potassium Chloride Carbon Dioxide BUN Creatinine Glucose POC Glucose 126 H 119 H 127 H Lactic Acid Calcium Phosphorus Magnesium AST ALT Alkaline Phosphatase Lactate Dehydrogenase Troponin T C-Reactive Protein NT-Pro-B Natriuret Pep Total Protein Albumin LDL Cholesterol Direct Vitamin B12 Crossmatch 12/21/21 12/21/21 12/21/21 00:45 04:21 04:21 WBC RBC 3.47 L Hgb 9.4 L Hct 29.2 L MCV MCH 27 L MCHC RDW 18.1 H Plt Count Seg Neuts % (Manual) Lymphocytes % (Manual) Seg Neutrophils # Man Lymphocytes # (Manual) Monocytes # (Manual) PT INR D-Dimer ABG pH ABG pO2 ABG HCO3 ABG O2 Saturation ABG Base Excess ABG Hemoglobin Oxyhemoglobin Sodium 134 L Potassium Chloride Carbon Dioxide BUN 35 H Creatinine 0.5 L Glucose 122 H POC Glucose 125 H Lactic Acid Calcium 8.2 L Phosphorus Magnesium AST ALT Alkaline Phosphatase Lactate Dehydrogenase Troponin T C-Reactive Protein NT-Pro-B Natriuret Pep Total Protein Albumin LDL Cholesterol Direct Vitamin B12 Crossmatch 12/21/21 12/21/21 12/21/21 05:38 11:29 16:16 WBC RBC Hgb Hct MCV MCH MCHC RDW Plt Count Seg Neuts % (Manual) Lymphocytes % (Manual) Seg Neutrophils # Man Lymphocytes # (Manual) Monocytes # (Manual) PT INR D-Dimer ABG pH ABG pO2 ABG HCO3 ABG O2 Saturation ABG Base Excess ABG Hemoglobin Oxyhemoglobin Sodium Potassium Chloride Carbon Dioxide BUN Creatinine Glucose POC Glucose 127 H 121 H 113 H Lactic Acid Calcium Phosphorus Magnesium AST ALT Alkaline Phosphatase Lactate Dehydrogenase Troponin T C-Reactive Protein NT-Pro-B Natriuret Pep Total Protein Albumin LDL Cholesterol Direct Vitamin B12 Crossmatch 12/22/21 12/22/21 12/23/21 04:58 04:58 06:40 WBC 11.5 H RBC 3.43 L Hgb 9.8 L Hct 28.7 L MCV MCH MCHC RDW 18.5 H 17.9 H Plt Count Seg Neuts % (Manual) Lymphocytes % (Manual) Seg Neutrophils # Man Lymphocytes # (Manual) Monocytes # (Manual) PT INR D-Dimer ABG pH ABG pO2 ABG HCO3 ABG O2 Saturation ABG Base Excess ABG Hemoglobin Oxyhemoglobin Sodium 130 L Potassium Chloride 97.8 L Carbon Dioxide BUN 31 H Creatinine 0.5 L Glucose 122 H POC Glucose Lactic Acid Calcium 7.9 L Phosphorus Magnesium AST ALT Alkaline Phosphatase Lactate Dehydrogenase Troponin T C-Reactive Protein NT-Pro-B Natriuret Pep Total Protein Albumin LDL Cholesterol Direct Vitamin B12 Crossmatch 12/23/21 12/23/21 12/24/21 06:40 23:25 04:24 WBC 11.7 H RBC Hgb 9.8 L Hct MCV MCH 26 L MCHC RDW 18.1 H Plt Count Seg Neuts % (Manual) Lymphocytes % (Manual) Seg Neutrophils # Man Lymphocytes # (Manual) Monocytes # (Manual) PT INR D-Dimer ABG pH ABG pO2 ABG HCO3 ABG O2 Saturation ABG Base Excess ABG Hemoglobin Oxyhemoglobin Sodium 136 L Potassium Chloride Carbon Dioxide BUN 27 H Creatinine 0.4 L Glucose 107 H POC Glucose 110 H Lactic Acid Calcium 8.1 L Phosphorus Magnesium AST ALT Alkaline Phosphatase Lactate Dehydrogenase Troponin T C-Reactive Protein NT-Pro-B Natriuret Pep Total Protein Albumin LDL Cholesterol Direct Vitamin B12 Crossmatch 12/24/21 12/24/21 12/24/21 04:24 11:08 15:45 WBC RBC Hgb Hct MCV MCH MCHC RDW Plt Count Seg Neuts % (Manual) Lymphocytes % (Manual) Seg Neutrophils # Man Lymphocytes # (Manual) Monocytes # (Manual) PT INR D-Dimer ABG pH ABG pO2 ABG HCO3 ABG O2 Saturation ABG Base Excess ABG Hemoglobin Oxyhemoglobin Sodium 132 L Potassium Chloride Carbon Dioxide BUN 27 H Creatinine 0.3 L Glucose 108 H POC Glucose 116 H 107 H Lactic Acid Calcium Phosphorus Magnesium AST ALT Alkaline Phosphatase Lactate Dehydrogenase Troponin T C-Reactive Protein NT-Pro-B Natriuret Pep Total Protein Albumin LDL Cholesterol Direct Vitamin B12 Crossmatch 12/24/21 12/25/21 12/25/21 23:43 05:29 11:48 WBC RBC Hgb Hct MCV MCH MCHC RDW Plt Count Seg Neuts % (Manual) Lymphocytes % (Manual) Seg Neutrophils # Man Lymphocytes # (Manual) Monocytes # (Manual) PT INR D-Dimer ABG pH ABG pO2 ABG HCO3 ABG O2 Saturation ABG Base Excess ABG Hemoglobin Oxyhemoglobin Sodium Potassium Chloride Carbon Dioxide BUN Creatinine Glucose POC Glucose 123 H 107 H 119 H Lactic Acid Calcium Phosphorus Magnesium AST ALT Alkaline Phosphatase Lactate Dehydrogenase Troponin T C-Reactive Protein NT-Pro-B Natriuret Pep Total Protein Albumin LDL Cholesterol Direct Vitamin B12 Crossmatch 12/26/21 12/26/21 12/26/21 00:06 05:56 07:51 WBC 11.4 H RBC 3.40 L Hgb 9.3 L Hct 28.3 L MCV MCH 27 L MCHC RDW 18.2 H Plt Count Seg Neuts % (Manual) Lymphocytes % (Manual) Seg Neutrophils # Man Lymphocytes # (Manual) Monocytes # (Manual) PT INR D-Dimer ABG pH ABG pO2 ABG HCO3 ABG O2 Saturation ABG Base Excess ABG Hemoglobin Oxyhemoglobin Sodium Potassium Chloride Carbon Dioxide BUN Creatinine Glucose POC Glucose 133 H 107 H Lactic Acid Calcium Phosphorus Magnesium AST ALT Alkaline Phosphatase Lactate Dehydrogenase Troponin T C-Reactive Protein NT-Pro-B Natriuret Pep Total Protein Albumin LDL Cholesterol Direct Vitamin B12 Crossmatch 12/26/21 12/26/21 12/26/21 07:51 11:43 17:06 WBC RBC Hgb Hct MCV MCH MCHC RDW Plt Count Seg Neuts % (Manual) Lymphocytes % (Manual) Seg Neutrophils # Man Lymphocytes # (Manual) Monocytes # (Manual) PT INR D-Dimer ABG pH ABG pO2 ABG HCO3 ABG O2 Saturation ABG Base Excess ABG Hemoglobin Oxyhemoglobin Sodium 136 L Potassium Chloride Carbon Dioxide BUN 25 H Creatinine 0.3 L Glucose 131 H POC Glucose 119 H 128 H Lactic Acid Calcium Phosphorus Magnesium AST ALT Alkaline Phosphatase Lactate Dehydrogenase Troponin T C-Reactive Protein NT-Pro-B Natriuret Pep Total Protein Albumin LDL Cholesterol Direct Vitamin B12 Crossmatch Allied health notes reviewed: nursing
[2021-12-27] MEDS: METOCLOPRAMIDE 10 MG/2 ML INJ IV SCH ×2 (14:53→22:55)
[2021-12-27] MEDS: VANCOMYCIN/NS 1 GM/250 ML 1 GM/250 ML BAG IV SCH (14:53)
--- NOTE | 2021-12-27 16:00 | Progress Note ---
Assessment and Plan Assessment and plan: This is a 81-year-old female with known history of diabetes mellitus, hypertension, PPM, and arthritis admitted for sepsis and acute hypoxia respiratory failure 2/2 bilateral pneumonia requiring intubation and ventilatory support Assessment and Plan Neuro : Anxiety, chronic pain -Neurology consulted, appreciate recommendations -CT brain showed no acute events -EEG interpreted as abnormal record due to diffuse slowing noted throughout the recording, suggestive of encephalopathic process and/or drug effect, possibilities of postictal state cannot be totally excluded. Clinical correlation is in order -MRI brain not obtained-> patient has metal in her body -Repeat CT head with no acute findings -Reorientation as needed -Ammonia 42, B12 1823, TSH 1.5 -BuSpar, Seroquel, Slater, gabapentin -xanax changed to PRN, fent patch dc 12/14 -prn xanax and Dilaudid Cardio: Acute Heart failure with reduced EF, h/o chronic heart block s/p PPM, HTN, CAD s/p PCI (2004), Moderate pulmonary HTN, cardiomyopathy -s/p vasopressor support with levophed -11/04 echocardiogram shows EF 30 to 35%, Moderate pulmonary HTN RVSP 49 -/ echo with 35-40% EF -Cardiology consulted, appreciate recommendations -Continue beta-charleen and statin therapy -Midodrine (titrate as needed) -Not on aspirin due to allergy -Blood pressure monitoring per protocol -As needed nitroglycerin Resp: Acute hypoxic respiratory failure secondary to bilateral pneumonia, bilateral pleural effusion. Right pneumothorax (resolved) -COVID-19 PCR negative -Intubated on 11/06 with 6.00 ETT at 18 at the lip and changed over bougie on 11/11-7.50 ETT at 20 at the lip -See RT notes for titration -PSV as tolerated -Surgery consult for trach -Received trach/PEG on 11/26 -S/p bedside bronchoscopy on 11/11 complicated by pneumothorax -S/p chest tube placement for right pneumothorax and dislodgment by patient on 11/15 -ABG/CXR per [facility] -VAP bundle -Right chest wall ultrasound showed pleural effusion s/p chest tube -12/11 US thoracentesis removed 1L fluid -SPO2 monitoring -Mucomyst every 8 -Albuterol every 8 GI: S/p GI bleed, duodenal ulcer, transaminitis, r/o obstruction -GI consulted, appreciate recommendations -GI reconsulted -Will obtain KUB to rule out obstruction -Nutrition consult for tube feeding -BR: Senokot, MiraLAX -s/p peg 11/26 -H2 charleen -Carafate -24-hour +825 ml -10/2021 Gastric occult positive -> EGD-> duodenal ulcer -12/14 occult stool positive : Urinary retention (resolved), hyponatremia, hypochloremia -Strict intake and output -Trend BMP ID: Septic shock (POA-resolved), bilateral pneumonia, MRSA bacteremia/pna -Infectious disease consulted, appreciate recommendations -COVID-19 PCR negative -Presented with fevers, leukocytosis and hypotension -11/04 blood cultures positive with a group B strep bacteremia 12/19 however repeat blood cultures on the with no growth to date -Echo showed no evidence of vegetation -repeat echo showed EF 35-40 % with no vegetations -ABX therapy: IV vancomycin fro 4 weeks -Monitor WBC and fever curve -Bedside bronchoscopy for mucous plug on CXR 11/11 -f/u blood cultures Heme: Acute DVT in the right external iliac vein, common femoral vein, superior aspect of femoral vein, Acute microcytic anemia -Evidenced on bilateral upper lower extremity ultrasound -S/p 7 unit PRBC -Trend CBC -Transfuse for hemoglobin less than 7 -heparin gtt dc d/t anemia -S/p IVC filter Endo: h/o DM and hypothyroidism -Continue home Synthroid -SSI -Accu-Cheks every 6 -Avoid hypoglycemia Disposition: Denied LTAC placement by insurance, appeal denied. Awaiting subacute rehab placement The high probability of a clinically significant, sudden or life threatening deterioration of the [pulm,mental health, CV] system(s) required my full and direct attention, intervention and personal management. The aggregate critical care time was [60] minutes. This time is in addition to time spent performing reported procedures but includes the following: [x] Data Review and interpretation [x] Patient assessment and monitoring of vital signs [x] Documentation [x] Medication orders and management Disposition Plan: icu Total Time Spent with Patient (Minutes): 60 History Interval history: This is an 82-year-old female with DM, HTN , CHB s/p PPM, CAD s/p PCI and arthritis who presented to the emergency department on 11/04 for shortness of breath ongoing for the past 3 days, cough and according to family a fever of 102.2. Upon arrival of EMS patient was found to be tachypneic and hypoxic with SPO2 of 76% on room air which later improved to 88% on nonrebreather. Work-up in the emergency department included a CXR which showed bilateral interstitial pulmonary edema with bilateral pleural effusions and bibasilar opacities, le ukocytosis and anemia with a hemoglobin of 6.1. Patient was admitted to the hospitalist service with acute anemia, acute hypoxic respiratory failure, bilateral pneumonia and COVID-19 PUI with consults to pulmonology, infectious disease and later cardiology. Patient was eventually intubated in the emergency department on 11/06. Hospital Course to date: 11/04/2021: Empiric therapy with iv levaquin/vancomycin. COVID PCR pending. Will consult ID. PCCM consulted, will follow recs. Hypotensive this AM, ordered bolus and fluids at 150 cc/hr. May require pressor support if bp does not improve. 11/05/2021: GBS on bcx +, currently on rocephin IV. Currently on bipap due to respiratory distress overnight. Worsening BL opacities on CXR. May be volume overload vs pneumonia. Unfortunately bp too low for lasix at this point. WIll continue levophed and bipap. Once able to tolerate, may do trial of albu min/lasix. Call attempt made to Niraj, no response. Will try again tomorrow to update. 11/06/2021: Decompensated overnight requiring intubation. CXR shows worsening interstitial infiltrates. Currenlty on dopamine, levophed, vasopressin. PICC line ordered. Advised RN to place gamble for I/O monitoring. Would benefit from diuresis but very volume overloaded. Prognosis guarded 11/08: Off sedation this am, remains unresponsive only grimace to pain. Hold all sedatives agents for now, patient is off pressors this am. Hypernatremia from today's lab- D5W X1bag, and low K repleted, repeat lab in the am. Severe constipation also noted from KUB, BR added. 11/09: Sudden SPO2 drop in the 60s this am. Patient was manually bagged and deep suctioned. Patient is currently stable on the vent, repeat CXR with no significant change. D/w CCM Mucomyst and brochodilator added. Patient mentation is unchanged, continue to hold off on sedative agents. Neurology consulted. 11/10: Acute DVT noted on bilateral lower extremity Doppler ultrasound therefore she was started on Lovenox treatment dose. Failed SBT. Hypernatremia and hyperchloremia noted, free water flush adjusted. 11/11: Patient noted to be febrile with increasing of the cytosis, UA/BC sent and CXR ordered. ID escalated antibiotics to cefepime. CXR demonstrated mucous plug, bedside bronchoscopy was performed and O ETT was changed over bougie from 6 cm to 7.5. Patient was noted to have a pneumothorax postprocedure and chest tube was placed. Family updated by [facility]. Free water flush increased and will add Jaswant supplementation. 11/12: Patient not noted to follow commands, hypernatremia worsen/persist, increasing free water flush, potassium and magnesium and phosphorus repleted. Hemoglobin noted to be 7.1/24.5 from 7.03/12 yesterday. We will continue to trend and monitor. Vent changes per CCM. Repeat CXR showed no residual pneumothorax. Consider waterseal tomorrow. Given persistent leukocytosis antibiotics escalated to cefepime per ID. 11/13: Remains on cefepime and vancomycin, vent changes per [facility]. Anemia noted an d given 1 unit PRBC. And beta-charleen held in setting of Levophed drip infusing. Remains on fentanyl drip. 11/14: Patient put on CPAP trial by [facility], will continue chest tube until after extubation. Will rest on assist control. CT brain was cancelled by radiologic tech and reordered. 11/15: Patient removed chest tube overnight. Will obtain cxr. remains on low dose levo. CTH completed with no acute findings. RT to place on CPAP. 11/16: Hypernatremia/hyperchloremia noted on the increase of day water flushes. Anemia noted and ordered PRBC. asked RT to place on cpap but not done yet 11/17: Patient remains on the vent, awake and following commands. H&H stable s/p 2units PRBCs. GI on consult, no intervention at this time. Will continue protonix gtt and serial H&H Q6hrs. Keep patient NPO for now, D5w added for hypernatremia and NPO status. Plan for IVC filter placement today by [facility]. 11/18: Patient is s/p IVC filter. H&H continue to trend down, hbg 6.1 this am, 1 unit of PRBCs ordered. Plan for possible EGD today by GI. Keep patient NPO, continue PPI drip and serial H&H Q6hrs. Electrolytes repleted, repeat lab in the am 11/19: S/p EGD- larger duodenal ulcer noted, see operative note. GI rec ommendations noted also noted. H&H stable this am. Keep patient on protonix gtt for now. Will keep patient NPO, continue IVF and serial H&H for now. Electrolytes repleted, repeat labs in the am 11/20: Very agitated and restless this am, fentanyl gtt resumed. Patient remains on protonix gtt, H&H remains stable. Will switch protonix gtt to IV BID, continue carafate and okay to resume meds at this time. Will F/u with GI to see if TF can be resumed. Gamble was reinserted overnight for retention. Electrolytes repleted, repeat in the am. Plan for possible PST today for possible extubation per CCM. 11/21: Patient is now on seroquel and patient's home buspar resumed. Patient more calm this morning, fentanyl gtt is off. H&H remains stable and patient is tolerating TF. Patient had a runs of Vtach/PVCs this am, BB added per Cardio. Continue daily PS and wean trial for possible extubation. 11/22: Back on fentanyl gtt overnight , RASS o to -1, following commands. Patient failed PST this am due to increased work of breathing and low SPO2, ABG pending. Patient is also with worsen pitting edema, lasix is still on hold. Will discuss with cardio and CCM to possibly resume lasix. 11/23: MARIA DEL CARMEN overnight. Patient failed PST again this am. Per CCM plan for possible trach and PEG, hold off on IV lasix for now. General surgery consulted and family is aware of possible Trach and PEG. 11/24: Trach/PEG pending this week, continue SBT/SAT as tolerated. No acute events reported overnight. 11/25: Patient was n.p.o. overnight and will remain n.p.o. tonight for trach/PEG tomorrow morning. She failed to support trial again. KUB obtained due to distended belly. 11/26: Patient scheduled for tracheostomy and PEG tube placement today, has been n.p.o. since midnight. No acute events reported overnight. [facility] ordered simethicone scheduled. 11/27: No acute events reported overnight, patient received trach/PEG yesterday. Has been on feedings since last night. Still awaiting LTAC placement. 11/28: Patient magnesium repleted, repeat a.m. labs, SBT 11/29: Patient complains of chest pain but ECG obtained which showed no acute findings, ordered troponin. Patient failed CPAP yesterday and was trialed again today. levophed was restarted but will aggressively wean 11/30: Patient failed SBT. Continue supportive care. Started gabapentin today 12/01: MARIA DEL CARMEN overnight. Continue daily PST. Case management to arrange possible placement 12/02: Report of dark stools overnight, patient is hemodynamically stable. H&H stable, patient is on PPI. Will continue to trend H&H. Continue daily PST as tolerated. Awaiting LTAC vs SNF placement. 12/03: Hypotensive overnight, requiring low dose pressors. S/p X3 days of gentle diurese. Will continue to monitor, wean off pressors as tolerated for MAP of 65. Patient Failed PST yesterday, case management to follow up with insurance for possible LTAC placement. Continue daily PST as tolerated. PT eval and treat ordered. 12/04: Increased agitation and anxiety overnight, remains on buspar and seroquel, trazadone added to promote rest. Patient is now working with PT, keep patient engage and awake during the day so she can rest at night. No BM for over 5 days, BR was adjusted. Patient did not tolerate PST again yesterday, continue daily PST as tolerated. Continue to titrate pressor for MAP above 65. Pending possible LTAC placement, case management to arrange. 12/05: Still not getting much rest overnight, will add melatonin for sleep. Continue to engage patient during the day and promote rest at night. TF was held due to concern for possible bleeding, H&H remains stable and stools normal this am. Resume TF and continue PPI and carafate. Remains on low dose levophed, titrate as tolerated. Continue daily PST. Possible LTAC placement, awaiting approval. 12/06: MARIA DEL CARMEN overnight. Patient rested overnight. Continue supportive measures. Daily PST as tolerated. Awaiting possible LTAC placement 12/07: MARIA DEL CARMEN overnight. Plan for Tpiece trial today. Continue current supportive measures. Possible LTAC placement 12/08: Patient placed on pressure support trial again today, started on Xanax, no acute events reported overnight. Awaiting insurance approval for LTAC. 12/09: Levophed discontinued, LTAC transfer denied, started on midodrine and Lasix, ultrasound chest pending, started on Xanax 0.[address] De León updated family at bedside today. Started on Dilaudid every 3 hours as needed. 12/10: Patient placed on CPAP trial this morning, no acute events reported overnight. Will order ultrasound-guided thoracentesis. 12/11: Patient had a thoracentesis today, will decrease Xanax dosage and continue midodrine and diuresing. Patient failed CPAP today. 12/12: Patient not tolerate CPAP trials today, no acute events reported overnight 12/13: No acute events overnight. continue PSV trials as tolerated. Daughter updated at bedside 12/14: Patient noted to be anemic today, ordered gastric occult. Patient seems to be oversedated therefore Xanax changed to as needed and fentanyl patch discontinued. We will continue to monitor hyponatremia. 12/15: MARIA DEL CARMEN overnight. s/p 1unit of PRBCs, H&H stable this am, no signs of any active bleeding. Continue daily PST as tolerated. Awaiting placement. 12/16: Hypertensive this am, Midodrine decreased. Continue daily PST. MARIA DEL CARMEN overnight 12/17: Patient Hgb dropped to 6 this am, no s/s of any active bleeding, VSS. Davi shin received 1unit of PRBC, will continue to trend H&H. Patient was pancultured and back on IV Abx due to persistent fevers yesterday. ID is also back on the case. Continue IV Abx per ID and f/u on cultures data for sensitivity. Patient also failed PST yesterday, continue daily PST as tolerated. Electrolytes repleted, repeat labs in the am. 12/18: Patient blood cultures is growing GPC 4 out 4 bottles. PICC line D/Rivas, patient is already on IV Abx-cefepine and Vanc and ID is following. Patient remains hemodynamically stable. Daily PST as tolerated adn PRN Benzo for anxiety. 12/19: MARIA DEL CARMEN overnight. Culture data noted, continue IV Abx per ID. Orders placed for repeat Bculture. Gamble D/C overnight, patient is voiding. Check bladder scan as needed for retention. Patient failed PST again today. Continue daily PST as tolerated. 12/20: Fevers improved, Cultures +MRSA, on Vanco per ID. Repeat 2D Echo to r/o endocarditis. Patient continue to fail PST, PEEP increased to 8 today. Continue pulmonary hygiene and vent wean per CCM. Sodium tab added for hyponatremia. 12/22: Patient on pressure support trial for approximately 4 hours today, midodrine dosage increased due to hypotension. Lasix discontinued. 12/23: Started on a.m. Seroquel dose, midodrine increased to 10 mg 3 times daily, 500 mL normal saline bolus. 12/24: Seroquel dose changed (25 every morning, 75 nightly). updated at bedside by Dr. De León. CPAP trials as tolerated. Continue vancomycin. Awaiting placement. 12/25: Continue CPAP as tolerated, added gasx for distention. Continue supportive care 12/26: Patient failed PSV this AM. no acute events overnight. 12/27: GI reconsulted due to abdominal distention. No acute events reported overnight. CPAP trials as tolerated. Dr. Mckenna will get a KUB to rule out possible obstruction. Hospitalist Physical - Constitutional Vitals: Temp Pulse Resp BP Pulse Ox 97.4 F L 71 21 160/68 98 12/27/21 12:00 12/27/21 15:00 12/27/21 15:00 12/27/21 15:00 12/27/21 15:00 General appearance: Present: no acute distress, other (Trach and on the vent) - EENT Eyes: Present: PERRL, EOM intact ENT: hearing intact, clear oral mucosa, dentition normal - Neck Neck: Present: normal ROM - Respiratory Respiratory effort: normal Respiratory: bilateral: diminished - Cardiovascular Rhythm: regular Heart Sounds: Present: S1 & S2. Absent: systolic murmur, diastolic murmur - Extremities Extremities: no ischemia, pulses intact, pulses symmetrical, normal temperature, normal color Extremity abnormal: edema Peripheral Pulses: within normal limits - Abdominal General gastrointestinal: soft, non-tender, distended, normal bowel sounds - Integumentary Integumentary: Present: warm, dry - Psychiatric Psychiatric: cooperative - Neurologic Neurologic: CNII-XII intact, no focal deficits, moves all extremities - Allied Health Allied health notes reviewed: nursing, RT, social work HEART Score - HEART Score Troponin: Troponin T 0.045 ng/mL (0.00-0.029) H 11/29/21 20:15 Results - Labs CBC & Chem 7: 12/26/21 07:51 12/26/21 07:51 Labs: Laboratory Last Values WBC 11.4 K/mm3 (4.5-11.0) H 12/26/21 07:51 RBC 3.40 M/mm3 (3.65-5.03) L 12/26/21 07:51 Hgb 9.3 gm/dl (10.1-14.3) L 12/26/21 07:51 Hct 28.3 % (30.3-42.9) L 12/26/21 07:51 MCV 83 fl (79-97) 12/26/21 07:51 MCH 27 pg (28-32) L 12/26/21 07:51 MCHC 33 % (30-34) 12/26/21 07:51 RDW 18.2 % (13.2-15.2) H 12/26/21 07:51 Plt Count 269 K/mm3 (140-440) 12/26/21 07:51 Add Manual Diff Complete 12/20/21 04:54 Total Counted 100 12/20/21 04:54 Seg Neutrophils % Violin Restorer 11/06/21 15:50 Seg Neuts % (Manual) 88.0 % (40.0-70.0) H 12/20/21 04:54 Band Neutrophils % 0 % 12/20/21 04:54 Lymphocytes % (Manual) 6.0 % (13.4-35.0) L 12/20/21 04:54 Reactive Lymphs % (Man) 0 % 12/20/21 04:54 Monocytes % (Manual) 5.0 % (0.0-7.3) 12/20/21 04:54 Eosinophils % (Manual) 1.0 % (0.0-4.3) 12/20/21 04:54 Basophils % (Manual) 0 % (0.0-1.8) 12/20/21 04:54 Metamyelocytes % 0 % 12/20/21 04:54 Myelocytes % 0 % 12/20/21 04:54 Promyelocytes % 0 % 12/20/21 04:54 Blast Cells % 0 % 12/20/21 04:54 Nucleated RBC % Not Reportable 12/20/21 04:54 Seg Neutrophils # Man 10.8 K/mm3 (1.8-7.7) H 12/20/21 04:54 Band Neutrophils # 0.0 K/mm3 12/20/21 04:54 Lymphocytes # (Manual) 0.7 K/mm3 (1.2-5.4) L 12/20/21 04:54 Abs React Lymphs (Man) 0.0 K/mm3 12/20/21 04:54 Monocytes # (Manual) 0.6 K/mm3 (0.0-0.8) 12/20/21 04:54 Eosinophils # (Manual) 0.1 K/mm3 (0.0-0.4) 12/20/21 04:54 Basophils # (Manual) 0.0 K/mm3 (0.0-0.1) 12/20/21 04:54 Metamyelocytes # 0.0 K/mm3 12/20/21 04:54 Myelocytes # 0.0 K/mm3 12/20/21 04:54 Promyelocytes # 0.0 K/mm3 12/20/21 04:54 Blast Cells # 0.0 K/mm3 12/20/21 04:54 WBC Morphology Not Reportable 12/20/21 04:54 Hypersegmented Neuts Not Reportable 12/20/21 04:54 Hyposegmented Neuts Not Reportable 12/20/21 04:54 Hypogranular Neuts Not Reportable 12/20/21 04:54 Smudge Cells Not Reportable 12/20/21 04:54 Toxic Granulation Not Reportable 12/20/21 04:54 Toxic Vacuolation Not Reportable 12/20/21 04:54 Dohle Bodies Not Reportable 12/20/21 04:54 Pelger-Huet Anomaly Not Reportable 12/20/21 04:54 Irina Rods Not Reportable 12/20/21 04:54 Platelet Estimate Consistent w auto 12/20/21 04:54 Clumped Platelets Not Reportable 12/20/21 04:54 Plt Clumps, EDTA Not Reportable 12/20/21 04:54 Large Platelets Not Reportable 12/20/21 04:54 Giant Platelets Not Reportable 12/20/21 04:54 Platelet Satelliting Not Reportable 12/20/21 04:54 Plt Morphology Comment Not Reportable 12/20/21 04:54 RBC Morphology Not Reportable 12/20/21 04:54 Dimorphic RBCs Not Reportable 12/20/21 04:54 Polychromasia Not Reportable 12/20/21 04:54 Hypochromasia Not Reportable 12/20/21 04:54 Poikilocytosis Not Reportable 12/20/21 04:54 Anisocytosis 1+ 12/20/21 04:54 Microcytosis Not Reportable 12/20/21 04:54 Macrocytosis Not Reportable 12/20/21 04:54 Spherocytes Not Reportable 12/20/21 04:54 Pappenheimer Bodies Not Reportable 12/20/21 04:54 Sickle Cells Not Reportable 12/20/21 04:54 Target Cells Not Reportable 12/20/21 04:54 Tear Drop Cells Not Reportable 12/20/21 04:54 Ovalocytes Not Reportable 12/20/21 04:54 Helmet Cells Not Reportable 12/20/21 04:54 Odonnell-Onancock Bodies Not Reportable 12/20/21 04:54 [place] Rings Not Reportable 12/20/21 04:54 Malcom Cells Not Reportable 12/20/21 04:54 Bite Cells Not Reportable 12/20/21 04:54 Crenated Cell Not Reportable 12/20/21 04:54 Elliptocytes Not Reportable 12/20/21 04:54 Acanthocytes (Spur) Not Reportable 12/20/21 04:54 Rouleaux Not Reportable 12/20/21 04:54 Hemoglobin C Crystals Not Reportable 12/20/21 04:54 Schistocytes Not Reportable 12/20/21 04:54 Malaria parasites Not Reportable 12/20/21 04:54 Godfrey Bodies Not Reportable 12/20/21 04:54 Hem Pathologist Commnt No 12/20/21 04:54 PT 16.9 Sec. (12.2-14.9) H 11/26/21 05:00 INR 1.24 (0.87-1.13) H 11/26/21 05:00 APTT 29.2 Sec. (24.2-36.6) 11/26/21 05:00 D-Dimer 2655.00 ng/mlDDU (0-234) H 11/11/21 04:28 ABG pH 7.479 pH Units (7.350-7.450) H 12/16/21 20:52 ABG pCO2 37.5 mm Hg 12/16/21 20:52 ABG pO2 79.3 mm Hg (80.0-90.0) L 12/16/21 20:52 ABG HCO3 27.3 mmol/L (20.0-26.0) H 12/16/21 20:52 ABG O2 Saturation 97.0 % (95.0-99.0) 12/16/21 20:52 ABG O2 Content 12.3 (0.0-44) 12/16/21 20:52 ABG Base Excess 3.6 mmol/L (-2.0-3.0) H 12/16/21 20:52 ABG Hemoglobin 9.1 gm/dl (12.0-16.0) L 12/16/21 20:52 ABG Carboxyhemoglobin 1.6 % (0.0-5.0) 12/16/21 20:52 ABG Methemoglobin 0.5 % (0.0-1.5) 12/16/21 20:52 Oxyhemoglobin 94.9 % (95.0-99.0) L 12/16/21 20:52 FiO2 30 % 12/16/21 20:52 Sodium 136 mmol/L (137-145) L 12/26/21 07:51 Potassium 4.2 mmol/L (3.6-5.0) 12/26/21 07:51 Chloride 100.1 mmol/L (98-107) 12/26/21 07:51 Carbon Dioxide 23 mmol/L (22-30) 12/26/21 07:51 Anion Gap 17 mmol/L 12/26/21 07:51 BUN 25 mg/dL (7-17) H 12/26/21 07:51 Creatinine 0.3 mg/dL (0.6-1.2) L 12/26/21 07:51 Estimated GFR > 60 ml/min 12/26/21 07:51 BUN/Creatinine Ratio 83 % 12/26/21 07:51 Glucose 131 mg/dL (65-100) H 12/26/21 07:51 POC Glucose 100 mg/dL (70-105) 12/27/21 11:30 Lactic Acid 3.70 mmol/L (0.7-2.0) H* 11/03/21 22:32 Calcium 8.5 mg/dL (8.4-10.2) 12/26/21 07:51 Phosphorus 3.40 mg/dL (2.5-4.5) 12/21/21 04:21 Magnesium 1.70 mg/dL (1.7-2.3) 12/21/21 04:21 Ferritin 52.6 ng/mL (10.0-200.0) 11/05/21 06:11 Total Bilirubin 0.50 mg/dL (0.1-1.2) 11/17/21 05:56 Direct Bilirubin < 0.2 mg/dL (0-0.2) 11/11/21 04:28 Indirect Bilirubin 0.1 mg/dL 11/11/21 04:28 AST 36 units/L (5-40) 11/17/21 05:56 ALT 47 units/L (7-56) 11/17/21 05:56 Alkaline Phosphatase 107 units/L (35-129) 11/17/21 05:56 Ammonia 42.0 umol/L (25-60) 11/10/21 14:08 Lactate Dehydrogenase 187 units/L (91-180) H 11/05/21 06:11 Troponin T 0.045 ng/mL (0.00-0.029) H 11/29/21 20:15 C-Reactive Protein 22.20 mg/dL (0.00-1.30) H 11/05/21 06:11 NT-Pro-B Natriuret Pep 7895 pg/mL (0-900) H 11/03/21 22:32 Total Protein 5.1 g/dL (6.3-8.2) L 11/17/21 05:56 Albumin 2.2 g/dL (3.9-5) L 11/17/21 05:56 Albumin/Globulin Ratio 0.8 % 11/17/21 05:56 Triglycerides 59 mg/dL (2-149) 11/29/21 20:15 Cholesterol 74 mg/dL (50-199) 11/29/21 20:15 LDL Cholesterol Direct 25 mg/dL (50-130) L 11/29/21 20:15 HDL Cholesterol 41 mg/dL (40-59) 11/29/21 20:15 Cholesterol/HDL Ratio 1.80 % 11/29/21 20:15 Vitamin B12 1823 pg/mL (211-911) H 11/10/21 14:08 TSH 1.510 mlU/mL (0.270-4.200) 11/10/21 14:08 Urine Color Yellow (Yellow) 11/11/21 09:00 Urine Turbidity Slightly-cloudy (Clear) 11/11/21 09:00 Urine pH 5.0 (5.0-7.0) 11/11/21 09:00 Ur Specific [place] 1.009 (1.003-1.030) 11/11/21 09:00 Urine Protein <15 mg/dl mg/dL (Negative) 11/11/21 09:00 Urine Glucose (UA) Neg mg/dL (Negative) 11/11/21 09:00 Urine Ketones Neg mg/dL (Negative) 11/11/21 09:00 Urine Blood Mod (Negative) 11/11/21 09:00 Urine Nitrite Neg (Negative) 11/11/21 09:00 Urine Bilirubin Neg (Negative) 11/11/21 09:00 Urine Urobilinogen < 2.0 mg/dL (<2.0) 11/11/21 09:00 Ur Leukocyte Esterase Neg (Negative) 11/11/21 09:00 Urine WBC (Auto) < 1.0 /HPF (0.0-6.0) 11/11/21 09:00 Urine RBC (Auto) < 1.0 /HPF (0.0-6.0) 11/11/21 09:00 Vancomycin Trough 14.4 ug/mL (5.0-20.0) 12/26/21 Unknown Coronavirus (PCR) Negative (Negative) 11/10/21 08:30 Blood Type O POSITIVE 12/14/21 10:30 Antibody Screen Negative 12/14/21 10:30 Crossmatch See Detail 12/14/21 10:30 Gamble/IV: Voiding Method External Female Catheter Active Medications - Current Medications Current Medications: Generic Name Dose Route Start Last Admin Trade Name Freq PRN Reason Stop Dose Admin Acetaminophen 650 mg 12/14/21 04:12 12/16/21 13:34 Acetaminophen 325 Mg/10.15 Ml Oral Liqd Unit Dose FEEDTUBE 650 mg Q6H PRN Administration Non Cardiac Pain or Temp>100.5 Hydrocodone Bitart/Acetaminophen 1 each 11/21/21 10:00 12/27/21 14:54 Hydrocodone/Acetaminophen 10-325mg Tab FEEDTUBE 1 each TID YOSSI Administration Alprazolam 0.25 mg 12/14/21 09:00 12/26/21 20:24 Alprazolam 0.25 Mg Tab PO 0.25 mg Q8H PRN Administration Agitation Lipase/Protease/Amylase 1 each 11/08/21 11:09 Lipase 10,500/Protease 25,000/Amylase 43,750 (Units) Dr Lema FEEDTUBE PRN PRN For Clogged Feeding Tube Buspirone HCl 7.5 mg 11/17/21 22:00 12/27/21 10:02 Buspirone 5 Mg Tab PO 7.5 mg BID YOSSI Administration Dextrose 0 ml 11/10/21 10:52 11/21/21 16:27 Dextrose 10% *Hypoglycemia IV 50 ml PRN PRN Administration Hypoglycemia Docusate Sodium 100 mg 12/04/21 11:00 12/27/21 10:03 Docusate Sodium 100 Mg/10 Ml Oral Liqd PO 100 mg BID YOSSI Administration Gabapentin 100 mg 12/01/21 10:00 12/27/21 10:03 Gabapentin 100 Mg Cap PO 100 mg QDAY YOSSI Administration Hydromorphone HCl 0.5 mg 12/08/21 20:06 12/27/21 06:16 Hydromorphone 1 Mg/1 Ml Inj IV 0.5 mg Q3H PRN Administration Pain, Moderate (4-6) Hydrophilic Ointment 1 applic 11/06/21 04:02 Lip Therapy Vaseline TP Q2HR PRN Dry Lips Vancomycin HCl 1 gm in 250 mls @ 166.667 mls/hr 12/16/21 14:00 12/27/21 14:53 Vancomycin/Ns 1 Gm/250 Ml IV 01/26/22 15:29 166.66 mls/hr Q24H YOSSI Administration Protocol Lansoprazole 30 mg 11/24/21 22:00 12/27/21 10:03 Lansoprazole 30 Mg Solutab FEEDTUBE 30 mg BID YOSSI Administration Levothyroxine Sodium 125 mcg 11/05/21 07:00 12/27/21 05:55 Levothyroxine 125 Mcg Tab PO 125 mcg DAILY@0600 [facility] Administration Melatonin 5 mg 12/05/21 22:00 12/26/21 21:38 Melatonin 5 Mg Tab PO 5 mg QHS [facility] Administration Metoclopramide HCl 5 mg 12/27/21 14:00 12/27/21 14:53 Metoclopramide 10 Mg/2 Ml Inj IV 5 mg Q8H [facility] Administration Metoprolol Tartrate 6.25 mg 12/08/21 22:52 12/27/21 10:02 Metoprolol Tartrate 25 Mg Tab PO 6.25 mg BID [facility] Administration Midodrine 5 mg 12/27/21 08:00 12/27/21 11:25 Midodrine 5 Mg Tab PO Not Given TID@0800,1200,1600 [facility] Multi-Ingred Cream/Lotion/Oil/Oint 1 applic 11/06/21 04:02 Mineral Oil/Petrolatum, White Ophth Oint 3.5 Gm OU Q4HR PRN Dry Eye(s) Nitroglycerin 0.4 mg 11/30/21 11:36 Nitroglycerin 0.4 Mg Tab Subl SL .Q5MIN PRN Chest Pain Ondansetron HCl 4 mg 12/05/21 10:00 12/26/21 18:23 Ondansetron 4 Mg/2 Ml Inj IV 4 mg Q8H PRN Administration Nausea And Vomiting Polyethylene Glycol 17 gm 12/02/21 10:00 12/27/21 10:03 Polyethylene Glycol 3350 17 Gm Powder PO 17 gm QDAY [facility] Administration Pravastatin Sodium 20 mg 11/18/21 22:00 12/26/21 21:37 Pravastatin 20 Mg Tab PO 20 mg QHS [facility] Administration Quetiapine Fumarate 75 mg 12/24/21 22:00 12/26/21 21:36 Quetiapine 25 Mg Tab PO 75 mg QHS [facility] Administration Quetiapine Fumarate 25 mg 12/25/21 10:00 12/27/21 10:03 Quetiapine 25 Mg Tab PO 25 mg QAM [facility] Administration Simple Syrup 15 ml 11/08/21 11:09 Simple Syrup 15 Ml FEEDTUBE PRN PRN Hypoglycemia Simple Syrup 30 ml 11/08/21 11:09 Simple Syrup 15 Ml FEEDTUBE PRN PRN Hypoglycemia Sodium Bicarbonate 325 mg 11/08/21 11:09 Sodium Bicarbonate 325 Mg Tab FEEDTUBE PRN PRN For Clogged Feeding Tube Sodium Chloride 10 ml 11/04/21 10:00 12/27/21 10:14 Sodium Chloride 0.9% 10 Ml Flush Syringe IV 10 ml BID YOSSI Administration Sodium Chloride 10 ml 11/04/21 02:03 Sodium Chloride 0.9% 10 Ml Flush Syringe IV PRN PRN LINE FLUSH Sucralfate 1 gm 11/18/21 16:30 12/27/21 12:45 Sucralfate 1 Gm/10 Ml Oral Liqd PO 1 gm ACHS YOSSI Administration Trazodone HCl 50 mg 12/04/21 22:00 12/26/21 21:35 Trazodone 50 Mg Tab PO 50 mg QHS YOSSI Administration Nutrition/Malnutrition Assess - Dietary Evaluation Nutrition/Malnutrition Findings: Nutrition Notes Start: 11/04/21 17:16 Freq: Status: Active Protocol: Document 12/26/21 16:55 [facility] (Rec: 12/26/21 16:56 [id number]) Nutrition Notes Initial or Follow up Brief Note Current Diet TF - Vital AF 1.2 at 45ml/hr Subjective/Other Information Per RN, pt tolerating TF at goal rate of 45ml/hr. Pt remains on vent support. Nutrition Intervention Follow-Up By: 01/02/22 Additional Comments F/U: stable TF, vent status, wt
[2021-12-27] MEDS: ALPRAZolam 0.25 MG TAB PO PRN (16:04)
[2021-12-27] MEDS: ONDANSETRON 4 MG/2 ML INJ IV PRN (16:04)
--- NOTE | 2021-12-27 16:04 | Gastroenterology Progress Note ---
Assessment and Plan # Duodenal ulcer - EGD 11/18 FINDINGS: * No gross lesions in the 2nd portion of the duodenum * Large cratered ulcer in the posterior duodenal bulb about 2 cm in diameter. Visible vessel present. Mild active oozing from the ulcer bed. A total of 3 injections were performed around the ulcer for a total of 2.5 cc of dilute epinephrine and hemostasis was obtained. However, because location of the ulcer could not inject circumferentially around the ulcer only able to inject around 60% of the circumference * Mostly healed clean-based ulcer in the anterior duodenal bulb with surrounding edema and erythema, no high risk stigmata * Mild to moderate atrophic gastritis throughout the entire stomach. Scattered erythema. 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 - H/H stable. # Abdominal distension/nausea/vomiting - concern for gastric outlet obstruction with previous duodenal ulcer. - tube feeds on hold today. No vomiting today - KUB ordered and pending. - may need CT with contrast via PEG tube - cont with PPI, lansoprazole. Subjective Date of service: 12/27/21 Principal diagnosis: Septic shock; AHRF; Anemia; Pneumonia; pleural effusion; HFrEF; Pulm HTN Interval history: GI called back for re-consult for abdominal distension. Per nursing, TF were held for 24 hrs due to nausea and vomiting along with abdominal distension. Started today at 4 AM and held this afternoon. Patient still on pressure support trial with trach. States abdominal pain with taking in deep breath. Having stools. Objective - Constitutional Vitals: Temp Pulse Resp BP Pulse Ox 97.4 F L 71 21 160/68 98 12/27/21 12:00 12/27/21 15:00 12/27/21 15:00 12/27/21 15:00 12/27/21 15:00 General appearance: no acute distress - EENT Eyes: EOM intact ENT: hearing decreased - Neck Neck: other (trach in place) - Respiratory Respiratory effort: normal - Cardiovascular Rhythm: regular Heart Sounds: Present: S1 & S2 - Gastrointestinal General gastrointestinal: Present: soft, distended, normal bowel sounds - Integumentary Integumentary: Present: clear, warm - Allied health notes Allied health notes reviewed: nursing - Labs CBC & Chem 7: 03/11/22 07:51 12/26/21 07:51 Labs: Laboratory Results - last 24 hr 12/26/21 12/27/21 12/27/21 17:06 05:35 11:30 POC Glucose 128 H 97 100
--- NOTE | 2021-12-27 16:35 | XRay Report ---
ABDOMEN 1 VIEW(S) INDICATION / CLINICAL INFORMATION: abd distention. COMPARISON: 12/24/2021 FINDINGS: TUBES / LINES: None. BOWEL GAS PATTERN: No significant abnormality. FREE AIR / EXTRALUMINAL GAS: None seen. ADDITIONAL FINDINGS: Bilateral total hip arthroplasties with no complication identified. IMPRESSION: 1. No significant abnormality. Signer Name: Reji Morgan MD Signed: 12/27/2021 4:31 PM Workstation Name: [id number]
[2021-12-27] MEDS ORDERED: hydrALAZINE 20 MG/1 ML INJ IV ONE (17:20)
[2021-12-27] MEDS: PRAVASTATIN 20 MG TAB PO SCH (21:33)
[2021-12-27] MEDS: MELATONIN 5 MG TAB PO SCH (21:33)
[2021-12-27] MEDS: traZODone 50 MG TAB PO SCH (21:33)
[2021-12-28] MEDS: ALPRAZolam 0.25 MG TAB PO PRN ×2 (03:58→12:05)
[2021-12-28] MEDS: LEVOTHYROXINE 125 MCG TAB PO SCH (06:13)
[2021-12-28] MEDS: METOCLOPRAMIDE 10 MG/2 ML INJ IV SCH ×3 (06:13→22:55)
[2021-12-28] MEDS: MIDODRINE 5 MG TAB PO SCH ×3 (08:00→18:26)
[2021-12-28] MEDS: SUCRALFATE 1 GM/10 ML ORAL LIQD PO SCH ×4 (09:00→21:50)
[2021-12-28] MEDS: HYDROcodone/ACETAMINOPHEN 10-325MG TAB FEEDTUBE SCH ×3 (09:00→21:49)
[2021-12-28] MEDS: HYDROmorphone 1 MG/1 ML INJ IV PRN ×2 (09:17→15:18)
[2021-12-28] MEDS: DOCUSATE SODIUM 100 MG/10 ML ORAL LIQD PO SCH (09:21)
[2021-12-28] MEDS: busPIRone 5 MG TAB PO SCH ×2 (09:21→21:49)
[2021-12-28] MEDS: GABAPENTIN 100 MG CAP PO SCH (09:22)
[2021-12-28] MEDS: METOPROLOL TARTRATE 25 MG TAB PO SCH ×2 (09:22→21:50)
[2021-12-28] MEDS: LANSOPRAZOLE 30 MG SOLUTAB FEEDTUBE SCH ×2 (09:23→21:50)
[2021-12-28] MEDS: QUEtiapine 25 MG TAB PO SCH ×2 (09:23→21:50)
[2021-12-28 09:47] LABS: Hematocrit 31.8 % (30.3-42.9); Hemoglobin 10.1 gm/dl (10.1-14.3); Mean Corpuscular HGB Conc 32 % (30-34); Mean Corpuscular Volume 85 fl (79-97); Platelet Count 306 K/mm3 (140-440); Red Blood Count 3.74 M/mm3 (3.65-5.03); Red Cell Distribution Width 18.4 % (13.2-15.2)
[2021-12-28 10:07] LABS: Blood Urea Nitrogen 18 mg/dL (7-17); Hemolysis Index 28
[2021-12-28 10:10] LABS: BUN/Creatinine Ratio 60
[2021-12-28] MEDS: POLYETHYLENE GLYCOL 3350 17 GM POWDER PO SCH (10:24)
--- NOTE | 2021-12-28 12:15 | XRay Report ---
CHEST - 1 VIEW INDICATION: sob COMPARISON: 12/24/2021 FINDINGS: SUPPORT DEVICES: Stable support device positioning. HEART: Stable cardiomediastinal silhouette. LUNGS/PLEURA: Persistent interstitial edema with moderate-sized layering effusions bilaterally. ADDITIONAL FINDINGS: None. IMPRESSION: Unchanged exam. Signer Name: Reji Morgan MD Signed: 12/28/2021 12:11 PM Workstation Name: [id number]
--- NOTE | 2021-12-28 13:34 | Progress Note ---
Assessment and Plan Assessment and plan: This is a 81-year-old female with known history of diabetes mellitus, hypertension, PPM, and arthritis admitted for sepsis and acute hypoxia respiratory failure 2/2 bilateral pneumonia requiring intubation and ventilatory support Assessment and Plan Neuro : Anxiety, chronic pain -Neurology consulted, appreciate recommendations -CT brain showed no acute events -EEG interpreted as abnormal record due to diffuse slowing noted throughout the recording, suggestive of encephalopathic process and/or drug effect, possibilities of postictal state cannot be totally excluded. Clinical correlation is in order -MRI brain not obtained-> patient has metal in her body -Repeat CT head with no acute findings -Reorientation as needed -Ammonia 42, B12 1823, TSH 1.5 -BuSpar, Seroquel, [place], gabapentin -xanax changed to PRN, fent patch dc 12/14 -prn xanax and Dilaudid Cardio: Acute Heart failure with reduced EF, h/o chronic heart block s/p PPM, HTN, CAD s/p PCI (2004), Moderate pulmonary HTN, cardiomyopathy -s/p vasopressor support with levophed -11/04 echocardiogram shows EF 30 to 35%, Moderate pulmonary HTN RVSP 49 -/ echo with 35-40% EF -Cardiology consulted, appreciate recommendations -Continue beta-charleen and statin therapy -Midodrine (titrate as needed) -Not on aspirin due to allergy -Blood pressure monitoring per protocol -As needed nitroglycerin Resp: Acute hypoxic respiratory failure secondary to bilateral pneumonia, bilateral pleural effusion. Right pneumothorax (resolved) -COVID-19 PCR negative -Intubated on 11/06 with 6.00 ETT at 18 at the lip and changed over bougie on 11/11-7.50 ETT at 20 at the lip -See RT notes for titration -PSV as tolerated -Surgery consult for trach -Received trach/PEG on 11/26 -S/p bedside bronchoscopy on 11/11 complicated by pneumothorax -S/p chest tube placement for right pneumothorax and dislodgment by patient on 11/15 -ABG/CXR per [facility] -VAP bundle -Right chest wall ultrasound showed pleural effusion s/p chest tube -12/11 US thoracentesis removed 1L fluid -SPO2 monitoring -Mucomyst every 8 -Albuterol every 8 GI: S/p GI bleed, duodenal ulcer, transaminitis, r/o obstruction -GI consulted, appreciate recommendations -GI reconsulted -KUB -Nutrition consult for tube feeding -BR: Senokot, MiraLAX -s/p peg 11/26 -H2 charleen -Carafate -24-hour +770 ml -10/2021 Gastric occult positive -> EGD-> duodenal ulcer -12/14 occult stool positive : Urinary retention (resolved), hyponatremia, hypochloremia -Strict intake and output -Trend BMP ID: Septic shock (POA-resolved), bilateral pneumonia, MRSA bacteremia/pna -Infectious disease consulted, appreciate recommendations -COVID-19 PCR negative -Presented with fevers, leukocytosis and hypotension -11/04 blood cultures positive with a group B strep bacteremia 12/19 however repeat blood cultures on the with no growth to date -Echo showed no evidence of vegetation -repeat echo showed EF 35-40 % with no vegetations -ABX therapy: IV vancomycin fro 4 weeks -Monitor WBC and fever curve -Bedside bronchoscopy for mucous plug on CXR 11/11 -f/u blood cultures Heme: Acute DVT in the right external iliac vein, common femoral vein, superior aspect of femoral vein, Acute microcytic anemia -Evidenced on bilateral upper lower extremity ultrasound -S/p 7 unit PRBC -Trend CBC -Transfuse for hemoglobin less than 7 -heparin gtt dc d/t anemia -S/p IVC filter Endo: h/o DM and hypothyroidism -Continue home Synthroid -SSI -Accu-Cheks every 6 -Avoid hypoglycemia Disposition: Denied LTAC placement by insurance, appeal denied. Awaiting subacute rehab placement The high probability of a clinically significant, sudden or life threatening deterioration of the [pulm,mental health, CV] system(s) required my full and direct attention, intervention and personal management. The aggregate critical care time was [60] minutes. This time is in addition to time spent performing reported procedures but includes the following: [x] Data Review and interpretation [x] Patient assessment and monitoring of vital signs [x] Documentation [x] Medication orders and management Disposition Plan: icu Total Time Spent with Patient (Minutes): 60 History Interval history: This is an 82-year-old female with DM, HTN , CHB s/p PPM, CAD s/p PCI and arth ritis who presented to the emergency department on 11/04 for shortness of breath ongoing for the past 3 days, cough and according to family a fever of 102.2. Upon arrival of EMS patient was found to be tachypneic and hypoxic with SPO2 of 76% on room air which later improved to 88% on nonrebreather. Work-up in the emergency department included a CXR which showed bilateral interstitial pulmonary edema with bilateral pleural effusions and bibasilar opacities, leukocytosis and anemia with a hemoglobin of 6.1. Patient was admitted to the hospitalist service with acute anemia, acute hypoxic respiratory failure, bilateral pneumonia and COVID-19 PUI with consults to pulmonology, infectious disease and later cardiology. Patient was eventually intubated in the emergency department on 11/06. Hospital Course to date: 11/04/2021: Empiric therapy with iv levaquin/vancomycin. COVID PCR pending. Will consult ID. PCCM consulted, will follow recs. Hypotensive this AM, ordered bolus and fluids at 150 cc/hr. May require pressor support if bp does not improve. 11/05/2021: GBS on bcx +, currently on rocephin IV. Currently on bipap due to respiratory distress overnight. Worsening BL opacities on CXR. May be volume overload vs pneumonia. Unfortunately bp too low for lasix at this point. WIll continue levophed and bipap. Once able to tolerate, may do trial of albumin/lasix. Call attempt made to Niraj, no response. Will try again tomorrow to update. 11/06/2021: Decompensated overnight requiring intubation. CXR shows worsening interstitial infiltrates. Currenlty on dopamine, levophed, vasopressin. PICC line ordered. Advised RN to place gamble for I/O monitoring. Would benefit from diuresis but very volume overloaded. Prognosis guarded 11/08: Off sedation this am, remains unresponsive only grimace to pain. Hold all sedatives agents for now, patient is off pressors this am. Hypernatremia from today's lab- D5W X1bag, and low K repleted, repeat lab in the am. Severe constipation also noted from KUB, BR added. 11/09: Sudden SPO2 drop in the 60s this am. Patient was manually bagged and deep suctioned. Patient is currently stable on the vent, repeat CXR with no significant change. D/w CCM Mucomyst and brochodilator added. Patient mentation is unchanged, continue to hold off on sedative agents. Neurology consulted. 11/10: Acute DVT noted on bilateral lower extremity Doppler ultrasound therefore she was started on Lovenox treatment dose. Failed SBT. Hypernatremia and hyperchloremia noted, free water flush adjusted. 11/11: Patient noted to be febrile with increasing of the cytosis, UA/BC sent and CXR ordered. ID escalated antibiotics to cefepime. CXR demonstrated mucous p lug, bedside bronchoscopy was performed and O ETT was changed over bougie from 6 cm to 7.5. Patient was noted to have a pneumothorax postprocedure and chest tube was placed. Family updated by [facility]. Free water flush increased and will add Jaswant supplementation. 11/12: Patient not noted to follow commands, hypernatremia worsen/persist, increasing free water flush, potassium and magnesium and phosphorus repleted. Hemoglobin noted to be 7.1/24.5 from 7.03/12 yesterday. We will continue to trend and monitor. Vent changes per [facility]. Repeat CXR showed no residual pneumothorax. Consider waterseal tomorrow. Given persistent leukocytosis antibiotics escalated to cefepime per ID. 11/13: Remains on cefepime and vancomycin, vent changes per [facility]. Anemia noted and given 1 unit PRBC. And beta-charleen held in setting of Levophed drip infusing. Remains on fentanyl drip. 11/14: Patient put on CPAP trial by [facility], will continue chest tube until after extubation. Will rest on assist control. CT brain was cancelled by radio control crane operator and reordered. 11/15: Patient removed chest tube overnight. Will obtain cxr. remains on low dose levo. CTH completed with no acute findings. RT to place on CPAP. 11/16: Hypernatremia/hyperchloremia noted on the increase of day water flushes. Anemia noted and ordered PRBC. asked RT to place on cpap but not done yet 11/17: Patient remains on the vent, awake and following commands. H&H stable s/p 2units PRBCs. GI on consult, no intervention at this time. Will continue protonix gtt and serial H&H Q6hrs. Keep patient NPO for now, D5w added for hypernatremia and NPO status. Plan for IVC filter placement today by [facility]. 11/18: Patient is s/p IVC filter. H&H continue to trend down, hbg 6.1 this am, 1 unit of PRBCs ordered. Plan for possible EGD today by GI. Keep patient NPO, continue PPI drip and serial H&H Q6hrs. Electrolytes repleted, repeat lab in the am 11/19: S/p EGD- larger duodenal ulcer noted, see operative note. GI recommendations noted also noted. H&H stable this am. Keep patient on protonix gtt for now. Will keep patient NPO, continue IVF and serial H&H for now. Electrolytes repleted, repeat labs in the am 11/20: Very agitated and restless this am, fentanyl gtt resumed. Patient remains on protonix gtt, H&H remains stable. Will switch protonix gtt to IV BID, continue carafate and okay to resume meds at this time. Will F/u with GI to see if TF can be resumed. Gamble was reinserted overnight for retention. Electrolytes repleted, repeat in the am. Plan for possible PST today for possible extubation per CCM. 11/21: Patient is now on seroquel and patient's home buspar resumed. Patient more calm this morning, fentanyl gtt is off. H&H remains stable and patient is tolerating TF. Patient had a runs of Vtach/PVCs this am, BB added per Cardio. Continue daily PS and wean trial for possible extubation. 11/22: Back on fentanyl gtt overnight , RASS o to -1, following commands. Patient failed PST this am due to increased work of breathing and low SPO2, ABG pending. Patient is also with worsen pitting edema, lasix is still on hold. Will discuss with cardio and CCM to possibly resume lasix. 11/23: MARIA DEL CARMEN overnight. Patient failed PST again this am. Per CCM plan for possible trach and PEG, hold off on IV lasix for now. General surgery consulted and nilda noel is aware of possible Trach and PEG. 11/24: Trach/PEG pending this week, continue SBT/SAT as tolerated. No acute events reported overnight. 11/25: Patient was n.p.o. overnight and will remain n.p.o. tonight for trach/PEG tomorrow morning. She failed to support trial again. KUB obtained due to dis tended belly. 11/26: Patient scheduled for tracheostomy and PEG tube placement today, has been n.p.o. since midnight. No acute events reported overnight. [facility] ordered simethicone scheduled. 11/27: No acute events reported overnight, patient received trach/PEG yesterday. Has been on feedings since last night. Still awaiting LTAC placement. 11/28: Patient magnesium repleted, repeat a.m. labs, SBT 11/29: Patient complains of chest pain but ECG obtained which showed no acute findings, ordered troponin. Patient failed CPAP yesterday and was trialed again today. levophed was restarted but will aggressively wean 11/30: Patient failed SBT. Continue supportive care. Started gabapentin today 12/01: MARIA DEL CARMEN overnight. Continue daily PST. Case management to arrange possible placement 12/02: Report of dark stools overnight, patient is hemodynamically stable. H&H stable, patient is on PPI. Will continue to trend H&H. Continue daily PST as tolerated. Awaiting LTAC vs SNF placement. 12/03: Hypotensive overnight, requiring low dose pressors. S/p X3 days of gentle diurese. Will continue to monitor, wean off pressors as tolerated for MAP of 65. Patient Failed PST yesterday, case management to follow up with insurance for possible LTAC placement. Continue daily PST as tolerated. PT eval and treat ordered. 12/04: Increased agitation and anxiety overnight, remains on buspar and seroquel, trazadone added to promote rest. Patient is now working with PT, keep patient engage and awake during the day so she can rest at night. No BM for over 5 days, BR was adjusted. Patient did not tolerate PST again yesterday, continue daily PST as tolerated. Continue to titrate pressor for MAP above 65. Pending possible LTAC placement, case management to arrange. 12/05: Still not getting much rest overnight, will add melatonin for sleep. Continue to engage patient during the day and promote rest at night. TF was held due to concern for possible bleeding, H&H remains stable and stools normal this am. Resume TF and continue PPI and carafate. Remains on low dose levophed, titrate as tolerated. Continue daily PST. Possible LTAC placement, awaiting approval. 12/06: MARIA DEL CARMEN overnight. Patient rested overnight. Continue supportive measures. Daily PST as tolerated. Awaiting possible LTAC placement 12/07: MARIA DEL CARMEN overnight. Plan for Tpiece trial today. Continue current supportive measures. Possible LTAC placement 12/08: Patient placed on pressure support trial again today, started on Xanax, no acute events reported overnight. Awaiting insurance approval for LTAC. 12/09: Levophed discontinued, LTAC transfer denied, started on midodrine and Lasix, ultrasound chest pending, started on Xanax 0.[address] De León updated family at bedside today. Started on Dilaudid every 3 hours as needed. 12/10: Patient placed on CPAP trial this morning, no acute events reported overnight. Will order ultrasound-guided thoracentesis. 12/11: Patient had a thoracentesis today, will decrease Xanax dosage and continue midodrine and diuresing. Patient failed CPAP today. 12/12: Patient not tolerate CPAP trials today, no acute events reported overnight 12/13: No acute events overnight. continue PSV trials as tolerated. Daughter updated at bedside 12/14: Patient noted to be anemic today, ordered gastric occult. Patient seems to be oversedated therefore Xanax changed to as needed and fentanyl patch dis continued. We will continue to monitor hyponatremia. 12/15: MARIA DEL CARMEN overnight. s/p 1unit of PRBCs, H&H stable this am, no signs of any active bleeding. Continue daily PST as tolerated. Awaiting placement. 12/16: Hypertensive this am, Midodrine decreased. Continue daily PST. MARIA DEL CARMEN overnight 12/17: Patient Hgb dropped to 6 this am, no s/s of any active bleeding, VSS. Patient received 1unit of PRBC, will continue to trend H&H. Patient was pancultured and back on IV Abx due to persistent fevers yesterday. ID is also back on the case. Continue IV Abx per ID and f/u on cultures data for sensitivity. Patient also failed PST yesterday, continue daily PST as tolerated. Electrolytes repleted, repeat labs in the am. 12/18: Patient blood cultures is growing GPC 4 out 4 bottles. PICC line D/Rivas, patient is already on IV Abx-cefepine and Vanc and ID is following. Patient remains hemodynamically stable. Daily PST as tolerated adn PRN Benzo for anxiety. 12/19: MARIA DEL CARMEN overnight. Culture data noted, continue IV Abx per ID. Orders placed for repeat Bculture. Gamble D/C overnight, patient is voiding. Check bladder scan as needed for retention. Patient failed PST again today. Continue daily PST as tolerated. 12/20: Fevers improved, Cultures +MRSA, on Vanco per ID. Repeat 2D Echo to r/o endocarditis. Patient continue to fail PST, PEEP increased to 8 today. Continue pulmonary hygiene and vent wean per [facility]. Sodium tab added for hyponatremia. 12/22: Patient on pressure support trial for approximately 4 hours today, midodrine dosage increased due to hypotension. Lasix discontinued. 12/23: Started on a.m. Seroquel dose, midodrine increased to 10 mg 3 times daily, 500 mL normal saline bolus. 12/24: Seroquel dose changed (25 every morning, 75 nightly). updated at bedside by Dr. De León. CPAP trials as tolerated. Continue vancomycin. Awaiting placement. 12/25: Continue CPAP as tolerated, added gasx for distention. Continue supportive care 12/26: Patient failed PSV this AM. no acute events overnight. 12/27: GI re-consulted due to abdominal distention. No acute events reported overnight. CPAP trials as tolerated. Dr. Mckenna will get a KUB to rule out possible obstruction. 12/28: KUB shows no acute process, CXR shows improvement. CPAP trials as tolerated. Hospitalist Physical - Constitutional Vitals: Temp Pulse Resp BP Pulse Ox 97.4 F L 64 32 H 136/64 98 12/28/21 12:30 12/28/21 12:56 12/28/21 09:10 12/28/21 12:56 12/28/21 12:56 General appearance: Present: no acute distress, other (Trach and on the vent) - EENT Eyes: Present: PERRL, EOM intact ENT: hearing intact, clear oral mucosa, dentition normal - Neck Neck: Present: normal ROM - Respiratory Respiratory effort: normal Respiratory: bilateral: diminished - Cardiovascular Rhythm: regular Heart Sounds: Present: S1 & S2. Absent: systolic murmur, diastolic murmur - Extremities Extremities: no ischemia, pulses intact, pulses symmetrical, normal temperature, normal color Extremity abnormal: edema Peripheral Pulses: within normal limits - Abdominal General gastrointestinal: soft, non-tender, non-distended, normal bowel sounds - Integumentary Integumentary: Present: warm, dry - Psychiatric Psychiatric: cooperative - Neurologic Neurologic: CNII-XII intact, no focal deficits, moves all extremities - Allied Health Allied health notes reviewed: nursing, RT HEART Score - HEART Score Troponin: Troponin T 0.045 ng/mL (0.00-0.029) H 11/29/21 20:15 Results - Labs CBC & Chem 7: 12/28/21 09:05 12/28/21 09:05 Labs: Laboratory Last Values WBC 10.8 K/mm3 (4.5-11.0) 12/28/21 09:05 RBC 3.74 M/mm3 (3.65-5.03) 12/28/21 09:05 Hgb 10.1 gm/dl (10.1-14.3) 12/28/21 09:05 Hct 31.8 % (30.3-42.9) 12/28/21 09:05 MCV 85 fl (79-97) 12/28/21 09:05 MCH 27 pg (28-32) L 12/28/21 09:05 MCHC 32 % (30-34) 12/28/21 09:05 RDW 18.4 % (13.2-15.2) H 12/28/21 09:05 Plt Count 306 K/mm3 (140-440) 12/28/21 09:05 Add Manual Diff Complete 12/20/21 04:54 Total Counted 100 12/20/21 04:54 Seg Neutrophils % Faculty Administrator 11/06/21 15:50 Seg Neuts % (Manual) 88.0 % (40.0-70.0) H 12/20/21 04:54 Band Neutrophils % 0 % 12/20/21 04:54 Lymphocytes % (Manual) 6.0 % (13.4-35.0) L 12/20/21 04:54 Reactive Lymphs % (Man) 0 % 12/20/21 04:54 Monocytes % (Manual) 5.0 % (0.0-7.3) 12/20/21 04:54 Eosinophils % (Manual) 1.0 % (0.0-4.3) 12/20/21 04:54 Basophils % (Manual) 0 % (0.0-1.8) 12/20/21 04:54 Metamyelocytes % 0 % 12/20/21 04:54 Myelocytes % 0 % 12/20/21 04:54 Promyelocytes % 0 % 12/20/21 04:54 Blast Cells % 0 % 12/20/21 04:54 Nucleated RBC % Not Reportable 12/20/21 04:54 Seg Neutrophils # Man 10.8 K/mm3 (1.8-7.7) H 12/20/21 04:54 Band Neutrophils # 0.0 K/mm3 12/20/21 04:54 Lymphocytes # (Manual) 0.7 K/mm3 (1.2-5.4) L 12/20/21 04:54 Abs React Lymphs (Man) 0.0 K/mm3 12/20/21 04:54 Monocytes # (Manual) 0.6 K/mm3 (0.0-0.8) 12/20/21 04:54 Eosinophils # (Manual) 0.1 K/mm3 (0.0-0.4) 12/20/21 04:54 Basophils # (Manual) 0.0 K/mm3 (0.0-0.1) 12/20/21 04:54 Metamyelocytes # 0.0 K/mm3 12/20/21 04:54 Myelocytes # 0.0 K/mm3 12/20/21 04:54 Promyelocytes # 0.0 K/mm3 12/20/21 04:54 Blast Cells # 0.0 K/mm3 12/20/21 04:54 WBC Morphology Not Reportable 12/20/21 04:54 Hypersegmented Neuts Not Reportable 12/20/21 04:54 Hyposegmented Neuts Not Reportable 12/20/21 04:54 Hypogranular Neuts Not Reportable 12/20/21 04:54 Smudge Cells Not Reportable 12/20/21 04:54 Toxic Granulation Not Reportable 12/20/21 04:54 Toxic Vacuolation Not Reportable 12/20/21 04:54 Dohle Bodies Not Reportable 12/20/21 04:54 Pelger-Huet Anomaly Not Reportable 12/20/21 04:54 Irina Rods Not Reportable 12/20/21 04:54 Platelet Estimate Consistent w auto 12/20/21 04:54 Clumped Platelets Not Reportable 12/20/21 04:54 Plt Clumps, EDTA Not Reportable 12/20/21 04:54 Large Platelets Not Reportable 12/20/21 04:54 Giant Platelets Not Reportable 12/20/21 04:54 Platelet Satelliting Not Reportable 12/20/21 04:54 Plt Morphology Comment Not Reportable 12/20/21 04:54 RBC Morphology Not Reportable 12/20/21 04:54 Dimorphic RBCs Not Reportable 12/20/21 04:54 Polychromasia Not Reportable 12/20/21 04:54 Hypochromasia Not Reportable 12/20/21 04:54 Poikilocytosis Not Reportable 12/20/21 04:54 Anisocytosis 1+ 12/20/21 04:54 Microcytosis Not Reportable 12/20/21 04:54 Macrocytosis Not Reportable 12/20/21 04:54 Spherocytes Not Reportable 12/20/21 04:54 Pappenheimer Bodies Not Reportable 12/20/21 04:54 Sickle Cells Not Reportable 12/20/21 04:54 Target Cells Not Reportable 12/20/21 04:54 Tear Drop Cells Not Reportable 12/20/21 04:54 Ovalocytes Not Reportable 12/20/21 04:54 Helmet Cells Not Reportable 12/20/21 04:54 Odonnell-Frierson Bodies Not Reportable 12/20/21 04:54 [place] Rings Not Reportable 12/20/21 04:54 [place] Cells Not Reportable 12/20/21 04:54 Bite Cells Not Reportable 12/20/21 04:54 Crenated Cell Not Reportable 12/20/21 04:54 Elliptocytes Not Reportable 12/20/21 04:54 Acanthocytes (Spur) Not Reportable 12/20/21 04:54 Rouleaux Not Reportable 12/20/21 04:54 Hemoglobin C Crystals Not Reportable 12/20/21 04:54 Schistocytes Not Reportable 12/20/21 04:54 Malaria parasites Not Reportable 12/20/21 04:54 Godfrey Bodies Not Reportable 12/20/21 04:54 Hem Pathologist Commnt No 12/20/21 04:54 PT 16.9 Sec. (12.2-14.9) H 11/26/21 05:00 INR 1.24 (0.87-1.13) H 11/26/21 05:00 APTT 29.2 Sec. (24.2-36.6) 11/26/21 05:00 D-Dimer 2655.00 ng/mlDDU (0-234) H 11/11/21 04:28 ABG pH 7.479 pH Units (7.350-7.450) H 12/16/21 20:52 ABG pCO2 37.5 mm Hg 12/16/21 20:52 ABG pO2 79.3 mm Hg (80.0-90.0) L 12/16/21 20:52 ABG HCO3 27.3 mmol/L (20.0-26.0) H 12/16/21 20:52 ABG O2 Saturation 97.0 % (95.0-99.0) 12/16/21 20:52 ABG O2 Content 12.3 (0.0-44) 12/16/21 20:52 ABG Base Excess 3.6 mmol/L (-2.0-3.0) H 12/16/21 20:52 ABG Hemoglobin 9.1 gm/dl (12.0-16.0) L 12/16/21 20:52 ABG Carboxyhemoglobin 1.6 % (0.0-5.0) 12/16/21 20:52 ABG Methemoglobin 0.5 % (0.0-1.5) 12/16/21 20:52 Oxyhemoglobin 94.9 % (95.0-99.0) L 12/16/21 20:52 FiO2 30 % 12/16/21 20:52 Sodium 135 mmol/L (137-145) L 12/28/21 09:05 Potassium 4.3 mmol/L (3.6-5.0) 12/28/21 09:05 Chloride 97.8 mmol/L (98-107) L 12/28/21 09:05 Carbon Dioxide 25 mmol/L (22-30) 12/28/21 09:05 Anion Gap 17 mmol/L 12/28/21 09:05 BUN 18 mg/dL (7-17) H 12/28/21 09:05 Creatinine 0.3 mg/dL (0.6-1.2) L 12/28/21 09:05 Estimated GFR > 60 ml/min 12/28/21 09:05 BUN/Creatinine Ratio 60 % 12/28/21 09:05 Glucose 83 mg/dL (65-100) 12/28/21 09:05 POC Glucose 88 mg/dL (70-105) 12/28/21 11:55 Lactic Acid 3.70 mmol/L (0.7-2.0) H* 11/03/21 22:32 Calcium 9.0 mg/dL (8.4-10.2) 12/28/21 09:05 Phosphorus 3.40 mg/dL (2.5-4.5) 12/21/21 04:21 Magnesium 1.70 mg/dL (1.7-2.3) 12/21/21 04:21 Ferritin 52.6 ng/mL (10.0-200.0) 11/05/21 06:11 Total Bilirubin 0.50 mg/dL (0.1-1.2) 11/17/21 05:56 Direct Bilirubin < 0.2 mg/dL (0-0.2) 11/11/21 04:28 Indirect Bilirubin 0.1 mg/dL 11/11/21 04:28 AST 36 units/L (5-40) 11/17/21 05:56 ALT 47 units/L (7-56) 11/17/21 05:56 Alkaline Phosphatase 107 units/L (35-129) 11/17/21 05:56 Ammonia 42.0 umol/L (25-60) 11/10/21 14:08 Lactate Dehydrogenase 187 units/L (91-180) H 11/05/21 06:11 Troponin T 0.045 ng/mL (0.00-0.029) H 11/29/21 20:15 C-Reactive Protein 22.20 mg/dL (0.00-1.30) H 11/05/21 06:11 NT-Pro-B Natriuret Pep 7895 pg/mL (0-900) H 11/03/21 22:32 Total Protein 5.1 g/dL (6.3-8.2) L 11/17/21 05:56 Albumin 2.2 g/dL (3.9-5) L 11/17/21 05:56 Albumin/Globulin Ratio 0.8 % 11/17/21 05:56 Triglycerides 59 mg/dL (2-149) 11/29/21 20:15 Cholesterol 74 mg/dL (50-199) 11/29/21 20:15 LDL Cholesterol Direct 25 mg/dL (50-130) L 11/29/21 20:15 HDL Cholesterol 41 mg/dL (40-59) 11/29/21 20:15 Cholesterol/HDL Ratio 1.80 % 11/29/21 20:15 Vitamin B12 1823 pg/mL (211-911) H 11/10/21 14:08 TSH 1.510 mlU/mL (0.270-4.200) 11/10/21 14:08 Urine Color Yellow (Yellow) 11/11/21 09:00 Urine Turbidity Slightly-cloudy (Clear) 11/11/21 09:00 Urine pH 5.0 (5.0-7.0) 11/11/21 09:00 Ur Specific [place] 1.009 (1.003-1.030) 11/11/21 09:00 Urine Protein <15 mg/dl mg/dL (Negative) 11/11/21 09:00 Urine Glucose (UA) Neg mg/dL (Negative) 11/11/21 09:00 Urine Ketones Neg mg/dL (Negative) 11/11/21 09:00 Urine Blood Mod (Negative) 11/11/21 09:00 Urine Nitrite Neg (Negative) 11/11/21 09:00 Urine Bilirubin Neg (Negative) 11/11/21 09:00 Urine Urobilinogen < 2.0 mg/dL (<2.0) 11/11/21 09:00 Ur Leukocyte Esterase Neg (Negative) 11/11/21 09:00 Urine WBC (Auto) < 1.0 /HPF (0.0-6.0) 11/11/21 09:00 Urine RBC (Auto) < 1.0 /HPF (0.0-6.0) 11/11/21 09:00 Vancomycin Trough 14.4 ug/mL (5.0-20.0) 12/26/21 Unknown Coronavirus (PCR) Negative (Negative) 11/10/21 08:30 Blood Type O POSITIVE 12/14/21 10:30 Antibody Screen Negative 12/14/21 10:30 Crossmatch See Detail 12/14/21 10:30 Gamble/IV: Voiding Method External Female Catheter Active Medications - Current Medications Current Medications: Generic Name Dose Route Start Last Admin Trade Name Freq PRN Reason Stop Dose Admin Acetaminophen 650 mg 12/14/21 04:12 12/16/21 13:34 Acetaminophen 325 Mg/10.15 Ml Oral Liqd Unit Dose FEEDTUBE 650 mg Q6H PRN Administration Non Cardiac Pain or Temp>100.5 Hydrocodone Bitart/Acetaminophen 1 each 11/21/21 10:00 12/28/21 09:00 Hydrocodone/Acetaminophen 10-325mg Tab FEEDTUBE 1 each TID YOSSI Administration Alprazolam 0.25 mg 12/14/21 09:00 12/28/21 12:05 Alprazolam 0.25 Mg Tab PO 0.25 mg Q8H PRN Administration Agitation Lipase/Protease/Amylase 1 each 11/08/21 11:09 Lipase 10,500/Protease 25,000/Amylase 43,750 (Units) Dr Lema FEEDTUBE PRN PRN For Clogged Feeding Tube Buspirone HCl 7.5 mg 11/17/21 22:00 12/28/21 09:21 Buspirone 5 Mg Tab PO 7.5 mg BID YOSSI Administration Dextrose 0 ml 11/10/21 10:52 11/21/21 16:27 Dextrose 10% *Hypoglycemia IV 50 ml PRN PRN Administration Hypoglycemia Docusate Sodium 100 mg 12/04/21 11:00 12/28/21 09:21 Docusate Sodium 100 Mg/10 Ml Oral Liqd PO 100 mg BID YOSSI Administration Gabapentin 100 mg 12/01/21 10:00 12/28/21 09:22 Gabapentin 100 Mg Cap PO 100 mg QDAY YOSSI Administration Hydromorphone HCl 0.5 mg 12/08/21 20:06 12/28/21 09:17 Hydromorphone 1 Mg/1 Ml Inj IV 0.5 mg Q3H PRN Administration Pain, Moderate (4-6) Hydrophilic Ointment 1 applic 11/06/21 04:02 Lip Therapy Vaseline TP Q2HR PRN Dry Lips Vancomycin HCl 1 gm in 250 mls @ 166.667 mls/hr 12/16/21 14:00 12/27/21 14:53 Vancomycin/Ns 1 Gm/250 Ml IV 01/26/22 15:29 166.66 mls/hr Q24H YOSSI Administration Protocol Lansoprazole 30 mg 11/24/21 22:00 12/28/21 09:23 Lansoprazole 30 Mg Solutab FEEDTUBE 30 mg BID YOSSI Administration Levothyroxine Sodium 125 mcg 11/05/21 07:00 12/28/21 06:13 Levothyroxine 125 Mcg Tab PO 125 mcg DAILY@0600 [facility] Administration Melatonin 5 mg 12/05/21 22:00 12/27/21 21:33 Melatonin 5 Mg Tab PO 5 mg QHS [facility] Administration Metoclopramide HCl 5 mg 12/27/21 14:00 12/28/21 06:13 Metoclopramide 10 Mg/2 Ml Inj IV 5 mg Q8H [facility] Administration Metoprolol Tartrate 6.25 mg 12/08/21 22:52 12/28/21 09:22 Metoprolol Tartrate 25 Mg Tab PO 6.25 mg BID [facility] Administration Midodrine 5 mg 12/27/21 08:00 12/28/21 08:00 Midodrine 5 Mg Tab PO Not Given TID@0800,1200,1600 [facility] Multi-Ingred Cream/Lotion/Oil/Oint 1 applic 11/06/21 04:02 Mineral Oil/Petrolatum, White Ophth Oint 3.5 Gm OU Q4HR PRN Dry Eye(s) Nitroglycerin 0.4 mg 11/30/21 11:36 Nitroglycerin 0.4 Mg Tab Subl SL .Q5MIN PRN Chest Pain Ondansetron HCl 4 mg 12/05/21 10:00 12/27/21 16:04 Ondansetron 4 Mg/2 Ml Inj IV 4 mg Q8H PRN Administration Nausea And Vomiting Polyethylene Glycol 17 gm 12/02/21 10:00 12/28/21 10:24 Polyethylene Glycol 3350 17 Gm Powder PO 17 gm QDAY [facility] Administration Pravastatin Sodium 20 mg 11/18/21 22:00 12/27/21 21:33 Pravastatin 20 Mg Tab PO 20 mg QHS [facility] Administration Quetiapine Fumarate 75 mg 12/24/21 22:00 12/27/21 21:35 Quetiapine 25 Mg Tab PO 75 mg QHS [facility] Administration Quetiapine Fumarate 25 mg 12/25/21 10:00 12/28/21 09:23 Quetiapine 25 Mg Tab PO 25 mg QAM YOSSI Administration Simple Syrup 15 ml 11/08/21 11:09 Simple Syrup 15 Ml FEEDTUBE PRN PRN Hypoglycemia Simple Syrup 30 ml 11/08/21 11:09 Simple Syrup 15 Ml FEEDTUBE PRN PRN Hypoglycemia Sodium Bicarbonate 325 mg 11/08/21 11:09 Sodium Bicarbonate 325 Mg Tab FEEDTUBE PRN PRN For Clogged Feeding Tube Sodium Chloride 10 ml 11/04/21 10:00 12/28/21 09:23 Sodium Chloride 0.9% 10 Ml Flush Syringe IV 10 ml BID YOSSI Administration Sodium Chloride 10 ml 11/04/21 02:03 Sodium Chloride 0.9% 10 Ml Flush Syringe IV PRN PRN LINE FLUSH Sucralfate 1 gm 11/18/21 16:30 12/28/21 12:24 Sucralfate 1 Gm/10 Ml Oral Liqd PO 1 gm ACHS YOSSI Administration Trazodone HCl 50 mg 12/04/21 22:00 12/27/21 21:33 Trazodone 50 Mg Tab PO 50 mg QHS YOSSI Administration Nutrition/Malnutrition Assess - Dietary Evaluation Nutrition/Malnutrition Findings: Nutrition Notes Start: 11/04/21 17:16 Freq: Status: Active Protocol: Document 12/26/21 16:55 REPLACED BY [facility] (Rec: 12/26/21 16:56 REPLACED BY [facility] [id number]) Nutrition Notes Initial or Follow up Brief Note Current Diet TF - Vital AF 1.2 at 45ml/hr Subjective/Other Information Per RN, pt tolerating TF at goal rate of 45ml/hr. Pt remains on vent support. Nutrition Intervention Follow-Up By: 01/02/22 Additional Comments F/U: stable TF, vent status, wt
--- NOTE | 2021-12-28 14:09 | Gastroenterology Progress Note ---
Assessment and Plan # Duodenal ulcer - EGD 11/18 FINDINGS: * No gross lesions in the 2nd portion of the duodenum * Large cratered ulcer in the posterior duodenal bulb about 2 cm in diameter. Visible vessel present. Mild active oozing from the ulcer bed. A total of 3 injections were performed around the ulcer for a total of 2.5 cc of dilute epinephrine and hemostasis was obtained. However, because location of the ulcer could not inject circumferentially around the ulcer only able to inject around 60% of the circumference * Mostly healed clean-based ulcer in the anterior duodenal bulb with surrounding edema and erythema, no high risk stigmata * Mild to moderate atrophic gastritis throughout the entire stomach. Scattered erythema. 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 - H/H stable. # Abdominal distension/nausea/vomiting - concern for gastric outlet obstruction with previous duodenal ulcer. - KUB from 12/27 unremarkable. - abdomen still distended. - recommend CT with contrast to rule out obstruction. - cont with PPI, lansoprazole. Subjective Date of service: 12/28/21 Principal diagnosis: Septic shock; AHRF; Anemia; Pneumonia; pleural effusion; H FrEF; Pulm HTN Interval history: Patient started on trickle feeds. No nausea/vomiting. Abdomen still distended. Complains of abdominal pain. Objective - Constitutional Vitals: Temp Pulse Resp BP Pulse Ox 97.4 F L 64 32 H 136/64 98 12/28/21 12:30 12/28/21 12:56 12/28/21 09:10 12/28/21 12:56 12/28/21 12:56 General appearance: no acute distress - EENT Eyes: EOM intact ENT: hearing decreased - Respiratory Respiratory effort: normal - Cardiovascular Rhythm: regular Heart Sounds: Present: S1 & S2 - Gastrointestinal General gastrointestinal: Present: soft, distended, normal bowel sounds - Integumentary Integumentary: Present: clear, warm - Labs CBC & Chem 7: 12/28/21 09:05 12/28/21 09:05 Labs: Laboratory Results - last 24 hr 12/27/21 12/27/21 12/28/21 17:30 23:31 05:48 WBC RBC Hgb Hct MCV MCH MCHC RDW Plt Count Sodium Potassium Chloride Carbon Dioxide Anion Gap BUN Creatinine Estimated GFR BUN/Creatinine Ratio Glucose POC Glucose 103 97 78 Calcium 12/28/21 12/28/21 12/28/21 09:05 09:05 11:55 WBC 10.8 RBC 3.74 Hgb 10.1 Hct 31.8 MCV 85 MCH 27 L MCHC 32 RDW 18.4 H Plt Count 306 Sodium 135 L Potassium 4.3 Chloride 97.8 L Carbon Dioxide 25 Anion Gap 17 BUN 18 H Creatinine 0.3 L Estimated GFR > 60 BUN/Creatinine Ratio 60 Glucose 83 POC Glucose 88 Calcium 9.0
--- NOTE | 2021-12-28 16:35 | Cat Scan Report ---
CT ABDOMEN AND PELVIS WITH CONTRAST INDICATION / CLINICAL INFORMATION: abd distention. TECHNIQUE: Axial CT images were obtained through the abdomen and pelvis after IV contrast. All CT sc ans at this location are performed using CT dose reduction for ALARA by means of automated exposure c ontrol. COMPARISON: None available. FINDINGS: Examination is significantly degraded secondary to severe streak artifact from overlying arms. LOWER CHEST: Large bilateral pleural effusions with compressive atelectasis of bilateral lower lobes. LIVER: No significant abnormality. GALLBLADDER: Moderately distended without definite wall thickening or significant pericholecystic inf lammation. PANCREAS: No significant abnormality. SPLEEN: No significant abnormality. ADRENALS: No significant abnormality. RIGHT KIDNEY / URETER: No significant abnormality. LEFT KIDNEY / URETER: No significant abnormality. STOMACH / SMALL BOWEL: No significant abnormality. Cutaneous endogastric tube in appropriate position within the mid stomach body. COLON: Rectal tube noted. There is a large stool burden within the distal sigmoid and proximal rectum . Moderate gaseous distention of the transverse colon. Majority of the proximal colon is not well pablo luated secondary to significant streak artifact from bilateral hip prostheses. APPENDIX: Nonvisualized PERITONEUM: Moderate amount of intra-abdominal peritoneal ascites. LYMPH NODES: No definite pathologic adenopathy identified. AORTA / ARTERIES/ VEINS: Moderate atherosclerotic calcification without acute abnormality. IVC filter noted within the infrarenal IVC. URINARY BLADDER: Mildly thick-walled REPRODUCTIVE ORGANS: No significant abnormality. ADDITIONAL FINDINGS: Anasarca. SKELETAL SYSTEM: Remote traumatic deformities of the bilateral pubic rami. Bilateral hip prostheses c ause significant streak artifact from the lower abdomen and pelvis which degrades evaluation. IMPRESSION: 1. 5 overload with large bilateral pleural effusions which causes compressive atelectasis of the gianluca ateral lower lobes. Moderate amount of abdominopelvic ascites. Anasarca. 2. Otherwise, no acute abnormality noted within the abdomen or pelvis. 3. Moderate inspissated stool burden within the distal sigmoid colon and rectum, which could reflect fecal impaction/constipation. 4. Other chronic findings as above, including exam degradation from overlying arms and bilateral hi p prostheses. Signer Name: Fan Khan MD Signed: 12/28/2021 4:30 PM Workstation Name: [id number]
--- NOTE | 2021-12-28 16:49 | Progress Note ---
Assessment and Plan Gram positive Bacteremia (MRSA) Acute respiratory failure with hypoxia, now on MVS Acute microcytic anemia Bilateral pneumonia DVT Left pleural effusion Cardiomyopathy EF 30-35% Moderate pulmonary HTN - consider chest tubes vs repeat thoracentesis re: bilateral pleural effusions (moderate to large) on CT abd / pelvis - follow official read on CT - no new issues otherwise, continue care as below; - LTAC evaluation ongoing - continue Seroquel - continue Vancomycin for MRSA (6 weeks of therapy recommended) - continue daily SAT and SBT assessment as tolerated - prn Levophed for target MAP > 65 mmHg - continue to wean supplemental oxygen for target O2 sat's > 90% acutely - VAP bundle addressed - continue lung protective strategies - continue bronchodilators with routine trach care and pulmonary hygiene per RT - wean per pulmonary driven protocols otherwise - avoid nephrotoxins, renally dose all medications - continue accuchecks with glycemic control per SSI (While critically ill target blood glucose of 140-180 mg/dL; avoid hypoglycemia) - sedation prn for target RASS 0 to -1 - antibiotics per ID recommendations - continue to avoid benzodiazepine's, reduce the possibility of delirium - prn analgesia per CPOT score - Maintenance of sleep-wake cycle, avoid delirium - continue enteral nutritional support at goal rate as tolerated - G.I. & VTE prophylaxis - PT/OT/ROM exercises - continue mobility protocols for pressure ulcer prophylaxis - Monitor hemodynamics closely - continue other care per attending / other consultants - discharge planning ongoing concurrently COVID SPECIFIC INTERVENTIONS - COVID-19 PCR negative .... Re-evaluate in am & prn CONDITION: CRITICAL PROGNOSIS: GUARDED CODE STATUS: FULL CODE The high probability of a clinically significant, sudden or life-threatening deterioration of the [respiratory, cardiovascular & neurologic] system(s) required my full and direct attention, intervention and personal management. The aggregate critical care time was [32] minutes without overlap. Time includes spent on; [x] Data Review and interpretation [x] Patient assessment and monitoring of vital signs [x] Documentation [x] Medication orders and management Subjective Date of service: 12/28/21 Principal diagnosis: Septic shock; AHRF; Anemia; Pneumonia; pleural effusion; HFrEF; Pulm HTN Interval history: Patient is seen today for: Septic shock; Acute hypoxemic respiratory failure; An emia; Bilateral pneumonia; Left pleural effusion; HFrEF 30-35%; Pulm HTN RVSP 49 Seen and examined at bedside; 24hour events reviewed; nursing and respiratory care staff consulted; no adverse overnight events reported to me; resting in bed; again failed SBT today; for CT abd & pelvis earlier; seen by GI team and input appreciated; no new issues otherwise Objective Vital Signs - 12hr 12/28/21 12/28/21 12/28/21 05:00 06:00 07:01 Temperature Pulse Rate 67 60 74 Respiratory 14 14 13 Rate Blood Pressure 135/63 126/63 163/67 O2 Sat by Pulse 100 100 100 Oximetry O2 Sat by Pulse Oximetry [ Assessment] 12/28/21 12/28/21 12/28/21 07:22 08:00 08:05 Temperature 98.0 F Pulse Rate 67 65 Respiratory 11 L Rate Blood Pressure 163/87 163/87 O2 Sat by Pulse 100 100 Oximetry O2 Sat by Pulse 100 Oximetry [ Assessment] 12/28/21 12/28/21 12/28/21 09:01 09:10 10:00 Temperature Pulse Rate 86 100 H 68 Respiratory 14 32 H 14 Rate Blood Pressure 154/73 175/98 179/72 O2 Sat by Pulse 97 92 99 Oximetry O2 Sat by Pulse Oximetry [ Assessment] 12/28/21 12/28/21 12/28/21 11:00 12:00 12:01 Temperature Pulse Rate 61 66 65 Respiratory 14 16 Rate Blood Pressure 176/65 164/76 O2 Sat by Pulse 99 97 Oximetry O2 Sat by Pulse Oximetry [ Assessment] 12/28/21 12/28/21 12/28/21 12:30 12:56 13:01 Temperature 97.4 F L Pulse Rate 64 60 Respiratory 14 Rate Blood Pressure 136/64 114/47 O2 Sat by Pulse 98 100 Oximetry O2 Sat by Pulse Oximetry [ Assessment] 12/28/21 12/28/21 12/28/21 14:00 14:01 15:00 Temperature Pulse Rate 60 70 67 Respiratory 18 15 Rate Blood Pressure 106/84 162/78 O2 Sat by Pulse 97 100 Oximetry O2 Sat by Pulse Oximetry [ Assessment] 12/28/21 16:25 Temperature Pulse Rate 113 H Respiratory Rate Blood Pressure O2 Sat by Pulse 96 Oximetry O2 Sat by Pulse 96 Oximetry [ Assessment] Constitutional: alert, appears uncomfortable, other (trach to MVS, frail elderly woman with mildly increased respiratory effort at rest) Eyes: non-icteric ENT: oropharynx moist, other (+ Midline tracheostomy is clean) Neck: supple, no lymphadenopathy, no JVD Effort: mildly labored Ascultation: Bilateral: diminished breath sounds, rhonchi Percussion: Bilateral: not dull Cardiovascular: regular rate and rhythm, other (S1,S2) Gastrointestinal: normoactive bowel sounds, soft, non-tender, other (distended and firm but not tense) Integumentary: normal Extremities: no cyanosis, pink and warm, pulses normal, edema (upper etremities) Neurologic: normal mental status, non-focal exam (grossly), pupils equal and round, motor strength normal and Psychiatric: mood appropriate, affect normal CBC and BMP: 01/06/22 04:06 01/06/22 04:06 ABG, PT/INR, D-dimer: ABG ABG pH 7.479 pH Units (7.350-7.450) H 12/16/21 20:52 ABG pCO2 37.5 mm Hg 12/16/21 20:52 ABG pO2 79.3 mm Hg (80.0-90.0) L 12/16/21 20:52 ABG O2 Saturation 97.0 % (95.0-99.0) 12/16/21 20:52 PT/INR, D-dimer PT 16.9 Sec. (12.2-14.9) H 11/26/21 05:00 INR 1.24 (0.87-1.13) H 11/26/21 05:00 D-Dimer 2655.00 ng/mlDDU (0-234) H 11/11/21 04:28 Abnormal lab findings: Abnormal Labs 11/03/21 11/03/21 11/03/21 22:32 22:32 22:32 WBC 29.3 H RBC 2.93 L Hgb 6.1 L Hct 21.9 L MCV 75 L MCH 21 L MCHC 28 L RDW 19.7 H Plt Count Seg Neuts % (Manual) 97.0 H Lymphocytes % (Manual) 3.0 L Seg Neutrophils # Man 28.4 H Lymphocytes # (Manual) 0.9 L Monocytes # (Manual) PT 18.6 H INR 1.40 H D-Dimer ABG pH ABG pO2 ABG HCO3 ABG O2 Saturation ABG Base Excess ABG Hemoglobin Oxyhemoglobin Sodium Potassium Chloride Carbon Dioxide 20 L BUN 33 H Creatinine Glucose 119 H POC Glucose Lactic Acid Calcium 8.3 L Phosphorus Magnesium AST ALT Alkaline Phosphatase Lactate Dehydrogenase Troponin T 0.035 H C-Reactive Protein NT-Pro-B Natriuret Pep Total Protein Albumin LDL Cholesterol Direct 34 L Vitamin B12 Crossmatch 11/03/21 11/03/21 11/03/21 22:32 22:32 23:57 WBC RBC Hgb Hct MCV MCH MCHC RDW Plt Count Seg Neuts % (Manual) Lymphocytes % (Manual) Seg Neutrophils # Man Lymphocytes # (Manual) Monocytes # (Manual) PT INR D-Dimer ABG pH ABG pO2 ABG HCO3 ABG O2 Saturation ABG Base Excess ABG Hemoglobin Oxyhemoglobin Sodium Potassium Chloride Carbon Dioxide BUN Creatinine Glucose POC Glucose Lactic Acid 3.70 H* Calcium Phosphorus Magnesium AST ALT Alkaline Phosphatase 139 H Lactate Dehydrogenase Troponin T C-Reactive Protein NT-Pro-B Natriuret Pep 7895 H Total Protein Albumin 3.5 L LDL Cholesterol Direct Vitamin B12 Crossmatch See Detail 11/04/21 11/04/21 11/05/21 00:59 13:58 00:51 WBC 27.9 H RBC 3.28 L Hgb 7.3 L Hct 25.5 L MCV 78 L MCH 22 L MCHC 29 L RDW 19.1 H Plt Count Seg Neuts % (Manual) 96.0 H Lymphocytes % (Manual) 2.0 L Seg Neutrophils # Man 26.8 H Lymphocytes # (Manual) 0.6 L Monocytes # (Manual) PT INR D-Dimer ABG pH ABG pO2 ABG HCO3 ABG O2 Saturation ABG Base Excess ABG Hemoglobin Oxyhemoglobin Sodium Potassium Chloride Carbon Dioxide BUN Creatinine Glucose POC Glucose Lactic Acid Calcium Phosphorus Magnesium AST ALT Alkaline Phosphatase Lactate Dehydrogenase Troponin T 0.051 H D 0.032 H D C-Reactive Protein NT-Pro-B Natriuret Pep Total Protein Albumin LDL Cholesterol Direct Vitamin B12 Crossmatch 11/05/21 11/05/21 11/05/21 06:11 06:11 06:11 WBC 31.8 H RBC 3.57 L Hgb 8.0 L Hct 27.7 L MCV 78 L MCH 22 L MCHC 29 L RDW 19.2 H Plt Count Seg Neuts % (Manual) 91.0 H Lymphocytes % (Manual) 4.5 L Seg Neutrophils # Man 28.9 H Lymphocytes # (Manual) Monocytes # (Manual) 1.1 H PT INR D-Dimer 1494.53 H ABG pH ABG pO2 ABG HCO3 ABG O2 Saturation ABG Base Excess ABG Hemoglobin Oxyhemoglobin Sodium Potassium Chloride Carbon Dioxide 19 L BUN 42 H Creatinine Glucose 115 H POC Glucose Lactic Acid Calcium Phosphorus Magnesium AST 43 H ALT Alkaline Phosphatase Lactate Dehydrogenase 187 H Troponin T C-Reactive Protein 22.20 H NT-Pro-B Natriuret Pep Total Protein 6.0 L Albumin 3.2 L LDL Cholesterol Direct Vitamin B12 Crossmatch 11/05/21 11/05/21 11/06/21 06:11 12:15 00:30 WBC RBC Hgb Hct MCV MCH MCHC RDW Plt Count Seg Neuts % (Manual) Lymphocytes % (Manual) Seg Neutrophils # Man Lymphocytes # (Manual) Monocytes # (Manual) PT INR D-Dimer ABG pH ABG pO2 ABG HCO3 ABG O2 Saturation ABG Base Excess ABG Hemoglobin Oxyhemoglobin Sodium Potassium Chloride Carbon Dioxide BUN Creatinine Glucose POC Glucose 113 H 69 L Lactic Acid Calcium Phosphorus Magnesium AST ALT Alkaline Phosphatase Lactate Dehydrogenase Troponin T 0.033 H C-Reactive Protein NT-Pro-B Natriuret Pep Total Protein Albumin LDL Cholesterol Direct Vitamin B12 Crossmatch 11/06/21 11/06/21 11/06/21 05:50 15:50 15:50 WBC 25.5 H RBC 3.62 L Hgb 8.0 L Hct 27.5 L MCV 76 L MCH 22 L MCHC 29 L RDW 19.6 H Plt Count Seg Neuts % (Manual) 92.0 H Lymphocytes % (Manual) 5.0 L Seg Neutrophils # Man 23.5 H Lymphocytes # (Manual) Monocytes # (Manual) PT INR D-Dimer ABG pH 7.305 L ABG pO2 ABG HCO3 15.8 L ABG O2 Saturation ABG Base Excess -9.6 L ABG Hemoglobin 8.6 L Oxyhemoglobin 94.6 L Sodium Potassium Chloride 113.9 H Carbon Dioxide 17 L BUN 56 H Creatinine Glucose 114 H POC Glucose Lactic Acid Calcium 7.9 L Phosphorus Magnesium AST 1410 H ALT 934 H Alkaline Phosphatase 142 H Lactate Dehydrogenase Troponin T C-Reactive Protein NT-Pro-B Natriuret Pep Total Protein 5.0 L Albumin 2.6 L LDL Cholesterol Direct Vitamin B12 Crossmatch 11/07/21 11/07/21 11/07/21 03:30 04:50 08:07 WBC RBC Hgb Hct MCV MCH MCHC RDW Plt Count Seg Neuts % (Manual) Lymphocytes % (Manual) Seg Neutrophils # Man Lymphocytes # (Manual) Monocytes # (Manual) PT INR D-Dimer ABG pH ABG pO2 296.9 H ABG HCO3 18.1 L ABG O2 Saturation 99.5 H ABG Base Excess -5.9 L ABG Hemoglobin 7.6 L Oxyhemoglobin Sodium Potassium Chloride Carbon Dioxide BUN Creatinine Glucose POC Glucose 106 H 108 H Lactic Acid Calcium Phosphorus Magnesium AST ALT Alkaline Phosphatase Lactate Dehydrogenase Troponin T C-Reactive Protein NT-Pro-B Natriuret Pep Total Protein Albumin LDL Cholesterol Direct Vitamin B12 Crossmatch 11/08/21 11/08/21 11/08/21 03:10 18:05 23:43 WBC RBC Hgb Hct MCV MCH MCHC RDW Plt Count Seg Neuts % (Manual) Lymphocytes % (Manual) Seg Neutrophils # Man Lymphocytes # (Manual) Monocytes # (Manual) PT INR D-Dimer ABG pH ABG pO2 127.4 H ABG HCO3 ABG O2 Saturation ABG Base Excess -3.4 L ABG Hemoglobin 7.4 L Oxyhemoglobin Sodium Potassium Chloride Carbon Dioxide BUN Creatinine Glucose POC Glucose 113 H 141 H Lactic Acid Calcium Phosphorus Magnesium AST ALT Alkaline Phosphatase Lactate Dehydrogenase Troponin T C-Reactive Protein NT-Pro-B Natriuret Pep Total Protein Albumin LDL Cholesterol Direct Vitamin B12 Crossmatch 11/08/21 11/08/21 11/09/21 Unknown Unknown 02:00 WBC 14.5 H RBC 3.35 L Hgb 7.5 L 8.1 L Hct 25.4 L 27.6 L MCV 76 L 76 L MCH 23 L 22 L MCHC RDW 19.9 H 19.9 H Plt Count Seg Neuts % (Manual) Lymphocytes % (Manual) Seg Neutrophils # Man Lymphocytes # (Manual) Monocytes # (Manual) PT INR D-Dimer ABG pH ABG pO2 ABG HCO3 ABG O2 Saturation ABG Base Excess ABG Hemoglobin Oxyhemoglobin Sodium 154 H D Potassium 3.3 L Chloride 120.7 H Carbon Dioxide 20 L BUN 38 H Creatinine Glucose POC Glucose Lactic Acid Calcium 8.3 L Phosphorus Magnesium AST ALT Alkaline Phosphatase Lactate Dehydrogenase Troponin T C-Reactive Protein NT-Pro-B Natriuret Pep Total Protein Albumin LDL Cholesterol Direct Vitamin B12 Crossmatch 11/09/21 11/09/21 11/09/21 02:00 02:31 05:12 WBC RBC Hgb Hct MCV MCH MCHC RDW Plt Count Seg Neuts % (Manual) Lymphocytes % (Manual) Seg Neutrophils # Man Lymphocytes # (Manual) Monocytes # (Manual) PT INR D-Dimer ABG pH 7.479 H ABG pO2 121.3 H ABG HCO3 ABG O2 Saturation ABG Base Excess ABG Hemoglobin 7.3 L Oxyhemoglobin Sodium Potassium Chloride 112.5 H Carbon Dioxide BUN 33 H Creatinine Glucose 161 H POC Glucose 135 H Lactic Acid Calcium Phosphorus Magnesium AST 251 H ALT 481 H Alkaline Phosphatase Lactate Dehydrogenase Troponin T C-Reactive Protein NT-Pro-B Natriuret Pep Total Protein 5.0 L Albumin 2.8 L LDL Cholesterol Direct Vitamin B12 Crossmatch 11/09/21 11/09/21 11/09/21 11:33 16:32 23:28 WBC RBC Hgb Hct MCV MCH MCHC RDW Plt Count Seg Neuts % (Manual) Lymphocytes % (Manual) Seg Neutrophils # Man Lymphocytes # (Manual) Monocytes # (Manual) PT INR D-Dimer ABG pH ABG pO2 ABG HCO3 ABG O2 Saturation ABG Base Excess ABG Hemoglobin Oxyhemoglobin Sodium Potassium Chloride Carbon Dioxide BUN Creatinine Glucose POC Glucose 132 H 133 H 143 H Lactic Acid Calcium Phosphorus Magnesium AST ALT Alkaline Phosphatase Lactate Dehydrogenase Troponin T C-Reactive Protein NT-Pro-B Natriuret Pep Total Protein Albumin LDL Cholesterol Direct Vitamin B12 Crossmatch 11/10/21 11/10/21 11/10/21 04:00 04:00 05:35 WBC 16.0 H RBC 3.61 L Hgb 8.0 L Hct 27.1 L MCV 75 L MCH 22 L MCHC RDW 20.4 H Plt Count Seg Neuts % (Manual) Lymphocytes % (Manual) Seg Neutrophils # Man Lymphocytes # (Manual) Monocytes # (Manual) PT INR D-Dimer ABG pH ABG pO2 ABG HCO3 ABG O2 Saturation ABG Base Excess ABG Hemoglobin Oxyhemoglobin Sodium 149 H Potassium Chloride 114.1 H Carbon Dioxide BUN 31 H Creatinine Glucose 148 H POC Glucose 132 H Lactic Acid Calcium 8.2 L Phosphorus Magnesium AST ALT Alkaline Phosphatase Lactate Dehydrogenase Troponin T C-Reactive Protein NT-Pro-B Natriuret Pep Total Protein Albumin LDL Cholesterol Direct Vitamin B12 Crossmatch 11/10/21 11/10/2122 11:31 14:08 15:35 WBC RBC Hgb Hct MCV MCH MCHC RDW Plt Count Seg Neuts % (Manual) Lymphocytes % (Manual) Seg Neutrophils # Man Lymphocytes # (Manual) Monocytes # (Manual) PT INR D-Dimer ABG pH ABG pO2 126.6 H ABG HCO3 ABG O2 Saturation ABG Base Excess ABG Hemoglobin 7.4 L Oxyhemoglobin Sodium Potassium Chloride Carbon Dioxide BUN Creatinine Glucose POC Glucose 147 H Lactic Acid Calcium Phosphorus Magnesium AST ALT Alkaline Phosphatase Lactate Dehydrogenase Troponin T C-Reactive Protein NT-Pro-B Natriuret Pep Total Protein Albumin LDL Cholesterol Direct Vitamin B12 1823 H Crossmatch 11/10/21 11/11/21 11/11/21 17:53 00:55 04:28 WBC RBC Hgb Hct MCV MCH MCHC RDW Plt Count Seg Neuts % (Manual) Lymphocytes % (Manual) Seg Neutrophils # Man Lymphocytes # (Manual) Monocytes # (Manual) PT INR D-Dimer ABG pH ABG pO2 ABG HCO3 ABG O2 Saturation ABG Base Excess ABG Hemoglobin Oxyhemoglobin Sodium 149 H Potassium Chloride 112.2 H Carbon Dioxide BUN 34 H Creatinine Glucose 148 H POC Glucose 140 H 145 H Lactic Acid Calcium 7.9 L Phosphorus Magnesium AST 53 H ALT 203 H Alkaline Phosphatase Lactate Dehydrogenase Troponin T C-Reactive Protein NT-Pro-B Natriuret Pep Total Protein 4.9 L Albumin 2.6 L LDL Cholesterol Direct Vitamin B12 Crossmatch 11/11/21 11/11/21 11/11/21 04:28 04:28 05:28 WBC 20.9 H RBC 3.47 L Hgb 7.5 L Hct 26.0 L MCV 75 L MCH 22 L MCHC 29 L RDW 21.6 H Plt Count 132 L Seg Neuts % (Manual) Lymphocytes % (Manual) Seg Neutrophils # Man Lymphocytes # (Manual) Monocytes # (Manual) PT INR D-Dimer 2655.00 H ABG pH ABG pO2 ABG HCO3 ABG O2 Saturation ABG Base Excess ABG Hemoglobin Oxyhemoglobin Sodium Potassium Chloride Carbon Dioxide BUN Creatinine Glucose POC Glucose 154 H Lactic Acid Calcium Phosphorus Magnesium AST ALT Alkaline Phosphatase Lactate Dehydrogenase Troponin T C-Reactive Protein NT-Pro-B Natriuret Pep Total Protein Albumin LDL Cholesterol Direct Vitamin B12 Crossmatch 11/11/21 11/11/21 11/12/21 12:38 18:13 00:14 WBC RBC Hgb Hct MCV MCH MCHC RDW Plt Count Seg Neuts % (Manual) Lymphocytes % (Manual) Seg Neutrophils # Man Lymphocytes # (Manual) Monocytes # (Manual) PT INR D-Dimer ABG pH ABG pO2 ABG HCO3 ABG O2 Saturation ABG Base Excess ABG Hemoglobin Oxyhemoglobin Sodium Potassium Chloride Carbon Dioxide BUN Creatinine Glucose POC Glucose 137 H 108 H 137 H Lactic Acid Calcium Phosphorus Magnesium AST ALT Alkaline Phosphatase Lactate Dehydrogenase Troponin T C-Reactive Protein NT-Pro-B Natriuret Pep Total Protein Albumin LDL Cholesterol Direct Vitamin B12 Crossmatch 11/12/21 11/12/21 11/12/21 05:40 06:24 11:12 WBC RBC Hgb Hct MCV MCH MCHC RDW Plt Count Seg Neuts % (Manual) Lymphocytes % (Manual) Seg Neutrophils # Man Lymphocytes # (Manual) Monocytes # (Manual) PT INR D-Dimer ABG pH 7.586 H ABG pO2 150.6 H ABG HCO3 27.2 H ABG O2 Saturation 99.1 H ABG Base Excess 5.2 H ABG Hemoglobin 7.5 L Oxyhemoglobin Sodium Potassium Chloride Carbon Dioxide BUN Creatinine Glucose POC Glucose 132 H 140 H Lactic Acid Calcium Phosphorus Magnesium AST ALT Alkaline Phosphatase Lactate Dehydrogenase Troponin T C-Reactive Protein NT-Pro-B Natriuret Pep Total Protein Albumin LDL Cholesterol Direct Vitamin B12 Crossmatch 11/12/21 11/12/21 11/12/21 14:50 14:50 17:13 WBC 19.8 H RBC 3.27 L Hgb 7.1 L Hct 24.5 L MCV 75 L MCH 22 L MCHC 29 L RDW 22.3 H Plt Count Seg Neuts % (Manual) Lymphocytes % (Manual) Seg Neutrophils # Man Lymphocytes # (Manual) Monocytes # (Manual) PT INR D-Dimer ABG pH ABG pO2 ABG HCO3 ABG O2 Saturation ABG Base Excess ABG Hemoglobin Oxyhemoglobin Sodium 150 H Potassium 3.3 L Chloride 112.0 H Carbon Dioxide BUN 40 H Creatinine Glucose 151 H POC Glucose 121 H Lactic Acid Calcium 7.4 L Phosphorus 1.70 L Magnesium 1.40 L AST ALT Alkaline Phosphatase Lactate Dehydrogenase Troponin T C-Reactive Protein NT-Pro-B Natriuret Pep Total Protein Albumin LDL Cholesterol Direct Vitamin B12 Crossmatch 11/12/21 11/13/21 11/13/21 23:19 05:34 06:30 WBC RBC Hgb Hct MCV MCH MCHC RDW Plt Count Seg Neuts % (Manual) Lymphocytes % (Manual) Seg Neutrophils # Man Lymphocytes # (Manual) Monocytes # (Manual) PT INR D-Dimer ABG pH ABG pO2 ABG HCO3 ABG O2 Saturation ABG Base Excess ABG Hemoglobin Oxyhemoglobin Sodium 149 H Potassium Chloride 60.0 L Carbon Dioxide BUN 40 H Creatinine Glucose 146 H POC Glucose 113 H 132 H Lactic Acid Calcium 7.3 L Phosphorus Magnesium 2.40 H AST ALT 72 H Alkaline Phosphatase Lactate Dehydrogenase Troponin T C-Reactive Protein NT-Pro-B Natriuret Pep Total Protein 5.2 L Albumin 2.2 L LDL Cholesterol Direct Vitamin B12 Crossmatch 11/13/21 11/13/21 11/13/21 06:30 08:30 11:19 WBC 21.2 H RBC 3.12 L Hgb 6.8 L Hct 23.2 L MCV 74 L MCH 22 L MCHC 29 L RDW 22.2 H Plt Count 135 L Seg Neuts % (Manual) Lymphocytes % (Manual) Seg Neutrophils # Man Lymphocytes # (Manual) Monocytes # (Manual) PT INR D-Dimer ABG pH ABG pO2 ABG HCO3 ABG O2 Saturation ABG Base Excess ABG Hemoglobin Oxyhemoglobin Sodium Potassium Chloride Carbon Dioxide BUN Creatinine Glucose POC Glucose 136 H Lactic Acid Calcium Phosphorus Magnesium AST ALT Alkaline Phosphatase Lactate Dehydrogenase Troponin T C-Reactive Protein NT-Pro-B Natriuret Pep Total Protein Albumin LDL Cholesterol Direct Vitamin B12 Crossmatch See Detail 11/13/21 11/14/21 11/14/21 18:21 00:01 04:46 WBC 20.0 H RBC 3.41 L Hgb 7.9 L Hct 26.8 L MCV MCH 23 L MCHC 29 L RDW 24.0 H Plt Count Seg Neuts % (Manual) Lymphocytes % (Manual) Seg Neutrophils # Man Lymphocytes # (Manual) Monocytes # (Manual) PT INR D-Dimer ABG pH ABG pO2 ABG HCO3 ABG O2 Saturation ABG Base Excess ABG Hemoglobin Oxyhemoglobin Sodium Potassium Chloride Carbon Dioxide BUN Creatinine Glucose POC Glucose 149 H 141 H Lactic Acid Calcium Phosphorus Magnesium AST ALT Alkaline Phosphatase Lactate Dehydrogenase Troponin T C-Reactive Protein NT-Pro-B Natriuret Pep Total Protein Albumin LDL Cholesterol Direct Vitamin B12 Crossmatch 11/14/21 11/14/2111/14/22 04:46 05:10 11:10 WBC RBC Hgb Hct MCV MCH MCHC RDW Plt Count Seg Neuts % (Manual) Lymphocytes % (Manual) Seg Neutrophils # Man Lymphocytes # (Manual) Monocytes # (Manual) PT INR D-Dimer ABG pH ABG pO2 ABG HCO3 ABG O2 Saturation ABG Base Excess ABG Hemoglobin Oxyhemoglobin Sodium 148 H Potassium Chloride 113.1 H Carbon Dioxide BUN 43 H Creatinine Glucose 140 H POC Glucose 132 H 133 H Lactic Acid Calcium 7.5 L Phosphorus Magnesium AST ALT Alkaline Phosphatase Lactate Dehydrogenase Troponin T C-Reactive Protein NT-Pro-B Natriuret Pep Total Protein Albumin LDL Cholesterol Direct Vitamin B12 Crossmatch 11/14/21 11/14/21 11/14/21 16:14 17:48 23:23 WBC RBC Hgb Hct MCV MCH MCHC RDW Plt Count Seg Neuts % (Manual) Lymphocytes % (Manual) Seg Neutrophils # Man Lymphocytes # (Manual) Monocytes # (Manual) PT INR D-Dimer ABG pH ABG pO2 ABG HCO3 28.0 H ABG O2 Saturation ABG Base Excess 3.1 H ABG Hemoglobin 5.8 L Oxyhemoglobin 94.8 L Sodium Potassium Chloride Carbon Dioxide BUN Creatinine Glucose POC Glucose 130 H 136 H Lactic Acid Calcium Phosphorus Magnesium AST ALT Alkaline Phosphatase Lactate Dehydrogenase Troponin T C-Reactive Protein NT-Pro-B Natriuret Pep Total Protein Albumin LDL Cholesterol Direct Vitamin B12 Crossmatch 11/15/21 11/15/21 11/15/21 05:20 05:50 05:50 WBC 19.9 H RBC 3.50 L Hgb 8.2 L Hct 27.9 L MCV MCH 23 L MCHC 29 L RDW 24.9 H Plt Count Seg Neuts % (Manual) Lymphocytes % (Manual) Seg Neutrophils # Man Lymphocytes # (Manual) Monocytes # (Manual) PT INR D-Dimer ABG pH ABG pO2 ABG HCO3 ABG O2 Saturation ABG Base Excess ABG Hemoglobin Oxyhemoglobin Sodium 149 H Potassium Chloride 112.0 H Carbon Dioxide BUN 48 H Creatinine Glucose 152 H POC Glucose 137 H Lactic Acid Calcium 7.9 L Phosphorus Magnesium AST ALT Alkaline Phosphatase Lactate Dehydrogenase Troponin T C-Reactive Protein NT-Pro-B Natriuret Pep Total Protein Albumin LDL Cholesterol Direct Vitamin B12 Crossmatch 11/15/21 11/15/21 11/15/21 12:12 17:07 23:24 WBC RBC Hgb Hct MCV MCH MCHC RDW Plt Count Seg Neuts % (Manual) Lymphocytes % (Manual) Seg Neutrophils # Man Lymphocytes # (Manual) Monocytes # (Manual) PT INR D-Dimer ABG pH ABG pO2 ABG HCO3 ABG O2 Saturation ABG Base Excess ABG Hemoglobin Oxyhemoglobin Sodium Potassium Chloride Carbon Dioxide BUN Creatinine Glucose POC Glucose 114 H 135 H 123 H Lactic Acid Calcium Phosphorus Magnesium AST ALT Alkaline Phosphatase Lactate Dehydrogenase Troponin T C-Reactive Protein NT-Pro-B Natriuret Pep Total Protein Albumin LDL Cholesterol Direct Vitamin B12 Crossmatch 11/16/21 11/16/21 11/16/21 05:21 10:00 10:00 WBC 21.7 H RBC 2.57 L Hgb 6.0 L Hct 20.2 L D MCV MCH 24 L MCHC RDW 26.3 H Plt Count Seg Neuts % (Manual) Lymphocytes % (Manual) Seg Neutrophils # Man Lymphocytes # (Manual) Monocytes # (Manual) PT INR D-Dimer ABG pH ABG pO2 ABG HCO3 ABG O2 Saturation ABG Base Excess ABG Hemoglobin Oxyhemoglobin Sodium 153 H Potassium Chloride 114.9 H Carbon Dioxide BUN 74 H Creatinine Glucose 155 H POC Glucose 127 H Lactic Acid Calcium 8.1 L Phosphorus Magnesium AST ALT Alkaline Phosphatase Lactate Dehydrogenase Troponin T C-Reactive Protein NT-Pro-B Natriuret Pep Total Protein Albumin LDL Cholesterol Direct Vitamin B12 Crossmatch 11/16/21 11/16/21 11/16/21 11:34 14:00 15:25 WBC 17.2 H RBC 2.08 L Hgb 4.7 L* Hct 16.2 L* MCV 78 L MCH 23 L MCHC 29 L RDW 26.0 H Plt Count Seg Neuts % (Manual) 87.0 H Lymphocytes % (Manual) 8.0 L Seg Neutrophils # Man 15.0 H Lymphocytes # (Manual) Monocytes # (Manual) 0.9 H PT INR D-Dimer ABG pH ABG pO2 ABG HCO3 ABG O2 Saturation ABG Base Excess ABG Hemoglobin Oxyhemoglobin Sodium Potassium Chloride Carbon Dioxide BUN Creatinine Glucose POC Glucose 131 H Lactic Acid Calcium Phosphorus Magnesium AST ALT Alkaline Phosphatase Lactate Dehydrogenase Troponin T C-Reactive Protein NT-Pro-B Natriuret Pep Total Protein Albumin LDL Cholesterol Direct Vitamin B12 Crossmatch See Detail 11/16/21 11/16/2122 15:25 17:21 22:43 WBC RBC Hgb 8.6 L D Hct 27.7 L D MCV MCH MCHC RDW Plt Count Seg Neuts % (Manual) Lymphocytes % (Manual) Seg Neutrophils # Man Lymphocytes # (Manual) Monocytes # (Manual) PT INR D-Dimer ABG pH ABG pO2 ABG HCO3 ABG O2 Saturation ABG Base Excess ABG Hemoglobin Oxyhemoglobin Sodium 148 H Potassium Chloride 113.2 H Carbon Dioxide BUN 84 H Creatinine Glucose 164 H POC Glucose 124 H Lactic Acid Calcium 7.6 L Phosphorus Magnesium AST ALT Alkaline Phosphatase Lactate Dehydrogenase Troponin T C-Reactive Protein NT-Pro-B Natriuret Pep Total Protein Albumin LDL Cholesterol Direct Vitamin B12 Crossmatch 11/16/21 11/17/21 11/17/21 23:07 05:33 05:56 WBC 25.1 H RBC 3.47 L Hgb 8.7 L Hct 28.5 L MCV MCH 25 L MCHC RDW 22.3 H Plt Count Seg Neuts % (Manual) Lymphocytes % (Manual) Seg Neutrophils # Man Lymphocytes # (Manual) Monocytes # (Manual) PT INR D-Dimer ABG pH ABG pO2 ABG HCO3 ABG O2 Saturation ABG Base Excess ABG Hemoglobin Oxyhemoglobin Sodium Potassium Chloride Carbon Dioxide BUN Creatinine Glucose POC Glucose 128 H 133 H Lactic Acid Calcium Phosphorus Magnesium AST ALT Alkaline Phosphatase Lactate Dehydrogenase Troponin T C-Reactive Protein NT-Pro-B Natriuret Pep Total Protein Albumin LDL Cholesterol Direct Vitamin B12 Crossmatch 11/17/21 11/17/21 11/17/21 05:56 11:00 11:55 WBC RBC Hgb 8.3 L Hct 26.9 L MCV MCH MCHC RDW Plt Count Seg Neuts % (Manual) Lymphocytes % (Manual) Seg Neutrophils # Man Lymphocytes # (Manual) Monocytes # (Manual) PT INR D-Dimer ABG pH ABG pO2 ABG HCO3 ABG O2 Saturation ABG Base Excess ABG Hemoglobin Oxyhemoglobin Sodium 151 H Potassium Chloride 113.6 H Carbon Dioxide BUN 85 H Creatinine Glucose 132 H POC Glucose 121 H Lactic Acid Calcium 7.8 L Phosphorus Magnesium AST ALT Alkaline Phosphatase Lactate Dehydrogenase Troponin T C-Reactive Protein NT-Pro-B Natriuret Pep Total Protein 5.1 L Albumin 2.2 L LDL Cholesterol Direct Vitamin B12 Crossmatch 11/17/21 11/17/21 11/18/21 18:04 18:55 00:26 WBC RBC Hgb 7.5 L 7.1 L Hct 24.8 L 23.6 L MCV MCH MCHC RDW Plt Count Seg Neuts % (Manual) Lymphocytes % (Manual) Seg Neutrophils # Man Lymphocytes # (Manual) Monocytes # (Manual) PT INR D-Dimer ABG pH ABG pO2 ABG HCO3 ABG O2 Saturation ABG Base Excess ABG Hemoglobin Oxyhemoglobin Sodium Potassium Chloride Carbon Dioxide BUN Creatinine Glucose POC Glucose 144 H Lactic Acid Calcium Phosphorus Magnesium AST ALT Alkaline Phosphatase Lactate Dehydrogenase Troponin T C-Reactive Protein NT-Pro-B Natriuret Pep Total Protein Albumin LDL Cholesterol Direct Vitamin B12 Crossmatch 11/18/21 11/18/21 11/18/21 00:43 05:10 05:10 WBC 12.5 H RBC 2.39 L Hgb 6.1 L Hct 20.2 L MCV MCH 25 L MCHC RDW 23.2 H Plt Count Seg Neuts % (Manual) Lymphocytes % (Manual) Seg Neutrophils # Man Lymphocytes # (Manual) Monocytes # (Manual) PT INR D-Dimer ABG pH ABG pO2 ABG HCO3 ABG O2 Saturation ABG Base Excess ABG Hemoglobin Oxyhemoglobin Sodium 131 L D Potassium 2.9 L* D Chloride 97.8 L Carbon Dioxide BUN 58 H Creatinine Glucose 665 H* POC Glucose 139 H Lactic Acid Calcium 7.0 L Phosphorus 2.20 L D Magnesium 1.50 L AST ALT Alkaline Phosphatase Lactate Dehydrogenase Troponin T C-Reactive Protein NT-Pro-B Natriuret Pep Total Protein Albumin LDL Cholesterol Direct Vitamin B12 Crossmatch 11/18/21 11/18/21 11/18/21 05:23 07:10 10:45 WBC RBC Hgb Hct MCV MCH MCHC RDW Plt Count Seg Neuts % (Manual) Lymphocytes % (Manual) Seg Neutrophils # Man Lymphocytes # (Manual) Monocytes # (Manual) PT INR D-Dimer ABG pH ABG pO2 ABG HCO3 ABG O2 Saturation ABG Base Excess ABG Hemoglobin Oxyhemoglobin Sodium 148 H D Potassium 3.1 L Chloride 111.9 H Carbon Dioxide BUN 63 H Creatinine Glucose 141 H POC Glucose 124 H Lactic Acid Calcium 8.1 L D Phosphorus Magnesium AST ALT Alkaline Phosphatase Lactate Dehydrogenase Troponin T C-Reactive Protein NT-Pro-B Natriuret Pep Total Protein Albumin LDL Cholesterol Direct Vitamin B12 Crossmatch See Detail 11/18/21 11/19/21 11/19/21 11:57 00:19 04:55 WBC RBC 3.35 L Hgb 9.0 L 8.9 L Hct 28.3 L D 28.1 L MCV MCH 27 L MCHC RDW 20.3 H Plt Count Seg Neuts % (Manual) Lymphocytes % (Manual) Seg Neutrophils # Man Lymphocytes # (Manual) Monocytes # (Manual) PT INR D-Dimer ABG pH ABG pO2 ABG HCO3 ABG O2 Saturation ABG Base Excess ABG Hemoglobin Oxyhemoglobin Sodium Potassium Chloride Carbon Dioxide BUN Creatinine Glucose POC Glucose 119 H Lactic Acid Calcium Phosphorus Magnesium AST ALT Alkaline Phosphatase Lactate Dehydrogenase Troponin T C-Reactive Protein NT-Pro-B Natriuret Pep Total Protein Albumin LDL Cholesterol Direct Vitamin B12 Crossmatch 11/19/21 11/19/21 11/20/21 04:55 05:42 00:55 WBC RBC Hgb 9.0 L Hct 28.6 L MCV MCH MCHC RDW Plt Count Seg Neuts % (Manual) Lymphocytes % (Manual) Seg Neutrophils # Man Lymphocytes # (Manual) Monocytes # (Manual) PT INR D-Dimer ABG pH ABG pO2 ABG HCO3 ABG O2 Saturation ABG Base Excess ABG Hemoglobin Oxyhemoglobin Sodium Potassium 3.5 L Chloride 108.6 H Carbon Dioxide BUN 47 H Creatinine Glucose 207 H POC Glucose 63 L Lactic Acid Calcium 7.1 L Phosphorus Magnesium AST ALT Alkaline Phosphatase Lactate Dehydrogenase Troponin T C-Reactive Protein NT-Pro-B Natriuret Pep Total Protein Albumin LDL Cholesterol Direct Vitamin B12 Crossmatch 11/20/21 11/20/21 11/20/21 05:40 05:40 Unknown WBC RBC 3.40 L Hgb 9.1 L Hct 28.8 L MCV MCH 27 L MCHC RDW 20.7 H Plt Count Seg Neuts % (Manual) Lymphocytes % (Manual) Seg Neutrophils # Man Lymphocytes # (Manual) Monocytes # (Manual) PT INR D-Dimer ABG pH ABG pO2 ABG HCO3 ABG O2 Saturation ABG Base Excess -2.7 L ABG Hemoglobin 9.5 L Oxyhemoglobin 94.3 L Sodium Potassium 3.5 L Chloride 108.9 H Carbon Dioxide BUN 37 H Creatinine Glucose 117 H POC Glucose Lactic Acid Calcium 7.5 L Phosphorus Magnesium AST ALT Alkaline Phosphatase Lactate Dehydrogenase Troponin T C-Reactive Protein NT-Pro-B Natriuret Pep Total Protein Albumin LDL Cholesterol Direct Vitamin B12 Crossmatch 11/21/21 11/21/21 11/21/21 04:30 04:30 16:00 WBC RBC 3.25 L Hgb 8.6 L Hct 28.1 L MCV MCH 26 L MCHC RDW 20.7 H Plt Count Seg Neuts % (Manual) Lymphocytes % (Manual) Seg Neutrophils # Man Lymphocytes # (Manual) Monocytes # (Manual) PT INR D-Dimer ABG pH ABG pO2 114.2 H ABG HCO3 ABG O2 Saturation ABG Base Excess ABG Hemoglobin 9.1 L Oxyhemoglobin Sodium 134 L Potassium Chloride Carbon Dioxide 20 L BUN 34 H Creatinine Glucose POC Glucose Lactic Acid Calcium 7.1 L Phosphorus Magnesium AST ALT Alkaline Phosphatase Lactate Dehydrogenase Troponin T C-Reactive Protein NT-Pro-B Natriuret Pep Total Protein Albumin LDL Cholesterol Direct Vitamin B12 Crossmatch 11/22/21 11/22/21 11/22/21 07:07 07:07 23:54 WBC RBC 3.30 L Hgb 9.0 L Hct 28.5 L MCV MCH 27 L MCHC RDW 21.0 H Plt Count Seg Neuts % (Manual) Lymphocytes % (Manual) Seg Neutrophils # Man Lymphocytes # (Manual) Monocytes # (Manual) PT INR D-Dimer ABG pH ABG pO2 ABG HCO3 ABG O2 Saturation ABG Base Excess ABG Hemoglobin Oxyhemoglobin Sodium Potassium Chloride Carbon Dioxide BUN 32 H Creatinine Glucose 106 H POC Glucose 110 H Lactic Acid Calcium 7.5 L Phosphorus Magnesium AST ALT Alkaline Phosphatase Lactate Dehydrogenase Troponin T C-Reactive Protein NT-Pro-B Natriuret Pep Total Protein Albumin LDL Cholesterol Direct Vitamin B12 Crossmatch 11/23/21 11/23/21 11/23/21 04:38 04:38 06:01 WBC RBC 3.23 L Hgb 8.8 L Hct 28.0 L MCV MCH 27 L MCHC RDW 21.3 H Plt Count Seg Neuts % (Manual) Lymphocytes % (Manual) Seg Neutrophils # Man Lymphocytes # (Manual) Monocytes # (Manual) PT INR D-Dimer ABG pH ABG pO2 ABG HCO3 ABG O2 Saturation ABG Base Excess ABG Hemoglobin Oxyhemoglobin Sodium 136 L Potassium Chloride Carbon Dioxide 20 L BUN 32 H Creatinine Glucose 109 H POC Glucose 115 H Lactic Acid Calcium 7.7 L Phosphorus Magnesium AST ALT Alkaline Phosphatase Lactate Dehydrogenase Troponin T C-Reactive Protein NT-Pro-B Natriuret Pep Total Protein Albumin LDL Cholesterol Direct Vitamin B12 Crossmatch 11/23/21 11/24/21 11/24/21 11:40 00:03 04:13 WBC RBC 3.18 L Hgb 8.5 L Hct 27.5 L MCV MCH 27 L MCHC RDW 21.6 H Plt Count Seg Neuts % (Manual) Lymphocytes % (Manual) Seg Neutrophils # Man Lymphocytes # (Manual) Monocytes # (Manual) PT INR D-Dimer ABG pH ABG pO2 ABG HCO3 ABG O2 Saturation ABG Base Excess ABG Hemoglobin Oxyhemoglobin Sodium Potassium Chloride Carbon Dioxide BUN Creatinine Glucose POC Glucose 117 H 111 H Lactic Acid Calcium Phosphorus Magnesium AST ALT Alkaline Phosphatase Lactate Dehydrogenase Troponin T C-Reactive Protein NT-Pro-B Natriuret Pep Total Protein Albumin LDL Cholesterol Direct Vitamin B12 Crossmatch 11/24/21 11/24/21 11/24/21 04:13 05:30 11:10 WBC RBC Hgb Hct MCV MCH MCHC RDW Plt Count Seg Neuts % (Manual) Lymphocytes % (Manual) Seg Neutrophils # Man Lymphocytes # (Manual) Monocytes # (Manual) PT INR D-Dimer ABG pH ABG pO2 ABG HCO3 ABG O2 Saturation ABG Base Excess ABG Hemoglobin Oxyhemoglobin Sodium Potassium Chloride Carbon Dioxide BUN 31 H Creatinine Glucose 101 H POC Glucose 115 H 107 H Lactic Acid Calcium 7.7 L Phosphorus Magnesium AST ALT Alkaline Phosphatase Lactate Dehydrogenase Troponin T C-Reactive Protein NT-Pro-B Natriuret Pep Total Protein Albumin LDL Cholesterol Direct Vitamin B12 Crossmatch 11/24/21 11/24/21 11/25/21 16:34 17:57 05:12 WBC RBC 3.11 L Hgb 8.2 L Hct 26.6 L MCV MCH 26 L MCHC RDW 21.3 H Plt Count Seg Neuts % (Manual) Lymphocytes % (Manual) Seg Neutrophils # Man Lymphocytes # (Manual) Monocytes # (Manual) PT INR D-Dimer ABG pH ABG pO2 ABG HCO3 ABG O2 Saturation ABG Base Excess ABG Hemoglobin Oxyhemoglobin Sodium Potassium Chloride Carbon Dioxide BUN Creatinine Glucose POC Glucose 115 H 110 H Lactic Acid Calcium Phosphorus Magnesium AST ALT Alkaline Phosphatase Lactate Dehydrogenase Troponin T C-Reactive Protein NT-Pro-B Natriuret Pep Total Protein Albumin LDL Cholesterol Direct Vitamin B12 Crossmatch 11/25/21 11/25/21 11/26/21 05:12 11:20 05:00 WBC RBC 3.30 L Hgb 8.8 L Hct 28.2 L MCV MCH 27 L MCHC RDW 20.7 H Plt Count Seg Neuts % (Manual) Lymphocytes % (Manual) Seg Neutrophils # Man Lymphocytes # (Manual) Monocytes # (Manual) PT INR D-Dimer ABG pH ABG pO2 ABG HCO3 ABG O2 Saturation ABG Base Excess ABG Hemoglobin Oxyhemoglobin Sodium Potassium Chloride Carbon Dioxide BUN 32 H Creatinine Glucose 118 H POC Glucose 118 H Lactic Acid Calcium 8.2 L Phosphorus Magnesium AST ALT Alkaline Phosphatase Lactate Dehydrogenase Troponin T C-Reactive Protein NT-Pro-B Natriuret Pep Total Protein Albumin LDL Cholesterol Direct Vitamin B12 Crossmatch 11/26/21 11/26/21 11/26/21 05:00 05:00 05:44 WBC RBC Hgb Hct MCV MCH MCHC RDW Plt Count Seg Neuts % (Manual) Lymphocytes % (Manual) Seg Neutrophils # Man Lymphocytes # (Manual) Monocytes # (Manual) PT 16.9 H INR 1.24 H D-Dimer ABG pH ABG pO2 ABG HCO3 ABG O2 Saturation ABG Base Excess ABG Hemoglobin Oxyhemoglobin Sodium Potassium Chloride Carbon Dioxide BUN 31 H Creatinine Glucose 104 H POC Glucose 110 H Lactic Acid Calcium 7.9 L Phosphorus Magnesium AST ALT Alkaline Phosphatase Lactate Dehydrogenase Troponin T C-Reactive Protein NT-Pro-B Natriuret Pep Total Protein Albumin LDL Cholesterol Direct Vitamin B12 Crossmatch 11/26/21 11/27/21 11/27/21 23:55 07:40 07:40 WBC RBC 3.18 L Hgb 8.5 L Hct 27.0 L MCV MCH 27 L MCHC RDW 21.2 H Plt Count Seg Neuts % (Manual) Lymphocytes % (Manual) Seg Neutrophils # Man Lymphocytes # (Manual) Monocytes # (Manual) PT INR D-Dimer ABG pH ABG pO2 ABG HCO3 ABG O2 Saturation ABG Base Excess ABG Hemoglobin Oxyhemoglobin Sodium Potassium Chloride Carbon Dioxide BUN 27 H Creatinine Glucose 112 H POC Glucose 63 L Lactic Acid Calcium 7.6 L Phosphorus Magnesium AST ALT Alkaline Phosphatase Lactate Dehydrogenase Troponin T C-Reactive Protein NT-Pro-B Natriuret Pep Total Protein Albumin LDL Cholesterol Direct Vitamin B12 Crossmatch 11/27/21 11/27/21 11/27/21 12:04 13:40 13:40 WBC RBC 3.31 L Hgb 8.7 L Hct 28.0 L MCV MCH 26 L MCHC RDW 20.7 H Plt Count Seg Neuts % (Manual) Lymphocytes % (Manual) Seg Neutrophils # Man Lymphocytes # (Manual) Monocytes # (Manual) PT INR D-Dimer ABG pH ABG pO2 ABG HCO3 ABG O2 Saturation ABG Base Excess ABG Hemoglobin Oxyhemoglobin Sodium 136 L Potassium Chloride Carbon Dioxide BUN 25 H Creatinine Glucose 127 H POC Glucose 109 H Lactic Acid Calcium 7.6 L Phosphorus Magnesium 1.40 L AST ALT Alkaline Phosphatase Lactate Dehydrogenase Troponin T C-Reactive Protein NT-Pro-B Natriuret Pep Total Protein Albumin LDL Cholesterol Direct Vitamin B12 Crossmatch 11/27/21 11/27/21 11/28/21 17:44 23:33 12:20 WBC RBC Hgb Hct MCV MCH MCHC RDW Plt Count Seg Neuts % (Manual) Lymphocytes % (Manual) Seg Neutrophils # Man Lymphocytes # (Manual) Monocytes # (Manual) PT INR D-Dimer ABG pH ABG pO2 ABG HCO3 ABG O2 Saturation ABG Base Excess ABG Hemoglobin Oxyhemoglobin Sodium Potassium Chloride Carbon Dioxide BUN Creatinine Glucose POC Glucose 107 H 108 H 114 H Lactic Acid Calcium Phosphorus Magnesium AST ALT Alkaline Phosphatase Lactate Dehydrogenase Troponin T C-Reactive Protein NT-Pro-B Natriuret Pep Total Protein Albumin LDL Cholesterol Direct Vitamin B12 Crossmatch 11/29/21 11/29/21 11/29/21 00:09 03:20 03:20 WBC RBC 3.05 L Hgb 8.2 L Hct 25.8 L MCV MCH 27 L MCHC RDW 20.9 H Plt Count Seg Neuts % (Manual) Lymphocytes % (Manual) Seg Neutrophils # Man Lymphocytes # (Manual) Monocytes # (Manual) PT INR D-Dimer ABG pH ABG pO2 ABG HCO3 ABG O2 Saturation ABG Base Excess ABG Hemoglobin Oxyhemoglobin Sodium 133 L Potassium Chloride Carbon Dioxide BUN 24 H Creatinine Glucose 137 H POC Glucose 134 H Lactic Acid Calcium 7.4 L Phosphorus Magnesium AST ALT Alkaline Phosphatase Lactate Dehydrogenase Troponin T C-Reactive Protein NT-Pro-B Natriuret Pep Total Protein Albumin LDL Cholesterol Direct Vitamin B12 Crossmatch 11/29/21 11/29/21 11/29/21 05:38 11:39 17:11 WBC RBC Hgb Hct MCV MCH MCHC RDW Plt Count Seg Neuts % (Manual) Lymphocytes % (Manual) Seg Neutrophils # Man Lymphocytes # (Manual) Monocytes # (Manual) PT INR D-Dimer ABG pH ABG pO2 ABG HCO3 ABG O2 Saturation ABG Base Excess ABG Hemoglobin Oxyhemoglobin Sodium Potassium Chloride Carbon Dioxide BUN Creatinine Glucose POC Glucose 117 H 143 H 124 H Lactic Acid Calcium Phosphorus Magnesium AST ALT Alkaline Phosphatase Lactate Dehydrogenase Troponin T C-Reactive Protein NT-Pro-B Natriuret Pep Total Protein Albumin LDL Cholesterol Direct Vitamin B12 Crossmatch 11/29/21 11/30/21 11/30/21 20:15 05:40 05:40 WBC 12.6 H RBC 3.41 L Hgb 9.1 L Hct 28.9 L MCV MCH 27 L MCHC RDW 20.4 H Plt Count Seg Neuts % (Manual) Lymphocytes % (Manual) Seg Neutrophils # Man Lymphocytes # (Manual) Monocytes # (Manual) PT INR D-Dimer ABG pH ABG pO2 ABG HCO3 ABG O2 Saturation ABG Base Excess ABG Hemoglobin Oxyhemoglobin Sodium Potassium Chloride Carbon Dioxide BUN 24 H Creatinine Glucose 131 H POC Glucose Lactic Acid Calcium 7.6 L Phosphorus Magnesium AST ALT Alkaline Phosphatase Lactate Dehydrogenase Troponin T 0.045 H C-Reactive Protein NT-Pro-B Natriuret Pep Total Protein Albumin LDL Cholesterol Direct 25 L Vitamin B12 Crossmatch 11/30/21 11/30/21 12/01/21 11:29 16:51 05:00 WBC RBC 2.97 L Hgb 8.0 L Hct 25.0 L MCV MCH 27 L MCHC RDW 20.8 H Plt Count Seg Neuts % (Manual) Lymphocytes % (Manual) Seg Neutrophils # Man Lymphocytes # (Manual) Monocytes # (Manual) PT INR D-Dimer ABG pH ABG pO2 ABG HCO3 ABG O2 Saturation ABG Base Excess ABG Hemoglobin Oxyhemoglobin Sodium Potassium Chloride Carbon Dioxide BUN Creatinine Glucose POC Glucose 123 H 114 H Lactic Acid Calcium Phosphorus Magnesium AST ALT Alkaline Phosphatase Lactate Dehydrogenase Troponin T C-Reactive Protein NT-Pro-B Natriuret Pep Total Protein Albumin LDL Cholesterol Direct Vitamin B12 Crossmatch 12/01/21 12/01/21 12/01/21 05:00 05:25 11:54 WBC RBC Hgb Hct MCV MCH MCHC RDW Plt Count Seg Neuts % (Manual) Lymphocytes % (Manual) Seg Neutrophils # Man Lymphocytes # (Manual) Monocytes # (Manual) PT INR D-Dimer ABG pH ABG pO2 ABG HCO3 ABG O2 Saturation ABG Base Excess ABG Hemoglobin Oxyhemoglobin Sodium 136 L Potassium Chloride Carbon Dioxide BUN 24 H Creatinine Glucose 117 H POC Glucose 108 H 107 H Lactic Acid Calcium 7.5 L Phosphorus Magnesium 1.60 L AST ALT Alkaline Phosphatase Lactate Dehydrogenase Troponin T C-Reactive Protein NT-Pro-B Natriuret Pep Total Protein Albumin LDL Cholesterol Direct Vitamin B12 Crossmatch 12/01/21 12/02/21 12/02/21 17:40 00:07 04:20 WBC RBC 2.92 L Hgb 7.7 L Hct 24.3 L MCV MCH 26 L MCHC RDW 20.5 H Plt Count Seg Neuts % (Manual) Lymphocytes % (Manual) Seg Neutrophils # Man Lymphocytes # (Manual) Monocytes # (Manual) PT INR D-Dimer ABG pH ABG pO2 ABG HCO3 ABG O2 Saturation ABG Base Excess ABG Hemoglobin Oxyhemoglobin Sodium Potassium Chloride Carbon Dioxide BUN Creatinine Glucose POC Glucose 123 H 110 H Lactic Acid Calcium Phosphorus Magnesium AST ALT Alkaline Phosphatase Lactate Dehydrogenase Troponin T C-Reactive Protein NT-Pro-B Natriuret Pep Total Protein Albumin LDL Cholesterol Direct Vitamin B12 Crossmatch 12/02/21 12/02/21 12/02/21 04:20 11:17 18:20 WBC RBC Hgb Hct MCV MCH MCHC RDW Plt Count Seg Neuts % (Manual) Lymphocytes % (Manual) Seg Neutrophils # Man Lymphocytes # (Manual) Monocytes # (Manual) PT INR D-Dimer ABG pH ABG pO2 ABG HCO3 ABG O2 Saturation ABG Base Excess ABG Hemoglobin Oxyhemoglobin Sodium 135 L Potassium Chloride Carbon Dioxide BUN 26 H Creatinine Glucose 121 H POC Glucose 117 H 113 H Lactic Acid Calcium 7.4 L Phosphorus Magnesium AST ALT Alkaline Phosphatase Lactate Dehydrogenase Troponin T C-Reactive Protein NT-Pro-B Natriuret Pep Total Protein Albumin LDL Cholesterol Direct Vitamin B12 Crossmatch 12/03/21 12/03/21 12/03/21 00:12 04:00 04:00 WBC RBC 2.99 L Hgb 7.8 L Hct 24.6 L MCV MCH 26 L MCHC RDW 20.2 H Plt Count Seg Neuts % (Manual) Lymphocytes % (Manual) Seg Neutrophils # Man Lymphocytes # (Manual) Monocytes # (Manual) PT INR D-Dimer ABG pH ABG pO2 ABG HCO3 ABG O2 Saturation ABG Base Excess ABG Hemoglobin Oxyhemoglobin Sodium 136 L Potassium Chloride Carbon Dioxide BUN 27 H Creatinine Glucose 133 H POC Glucose 121 H Lactic Acid Calcium 7.5 L Phosphorus Magnesium AST ALT Alkaline Phosphatase Lactate Dehydrogenase Troponin T C-Reactive Protein NT-Pro-B Natriuret Pep Total Protein Albumin LDL Cholesterol Direct Vitamin B12 Crossmatch 12/03/21 12/03/21 12/03/21 06:30 11:13 16:00 WBC RBC Hgb Hct MCV MCH MCHC RDW Plt Count Seg Neuts % (Manual) Lymphocytes % (Manual) Seg Neutrophils # Man Lymphocytes # (Manual) Monocytes # (Manual) PT INR D-Dimer ABG pH ABG pO2 ABG HCO3 ABG O2 Saturation ABG Base Excess ABG Hemoglobin Oxyhemoglobin Sodium Potassium Chloride Carbon Dioxide BUN Creatinine Glucose POC Glucose 129 H 125 H 125 H Lactic Acid Calcium Phosphorus Magnesium AST ALT Alkaline Phosphatase Lactate Dehydrogenase Troponin T C-Reactive Protein NT-Pro-B Natriuret Pep Total Protein Albumin LDL Cholesterol Direct Vitamin B12 Crossmatch 12/03/21 12/04/21 12/04/21 23:32 04:00 05:36 WBC RBC Hgb Hct MCV MCH MCHC RDW Plt Count Seg Neuts % (Manual) Lymphocytes % (Manual) Seg Neutrophils # Man Lymphocytes # (Manual) Monocytes # (Manual) PT INR D-Dimer ABG pH ABG pO2 ABG HCO3 ABG O2 Saturation ABG Base Excess ABG Hemoglobin Oxyhemoglobin Sodium Potassium 3.5 L Chloride Carbon Dioxide BUN 26 H Creatinine 0.5 L Glucose 151 H POC Glucose 133 H 142 H Lactic Acid Calcium 8.3 L Phosphorus Magnesium AST ALT Alkaline Phosphatase Lactate Dehydrogenase Troponin T C-Reactive Protein NT-Pro-B Natriuret Pep Total Protein Albumin LDL Cholesterol Direct Vitamin B12 Crossmatch 12/04/21 12/04/21 12/05/21 11:24 15:58 04:36 WBC RBC Hgb Hct MCV MCH MCHC RDW Plt Count Seg Neuts % (Manual) Lymphocytes % (Manual) Seg Neutrophils # Man Lymphocytes # (Manual) Monocytes # (Manual) PT INR D-Dimer ABG pH ABG pO2 ABG HCO3 ABG O2 Saturation ABG Base Excess ABG Hemoglobin Oxyhemoglobin Sodium Potassium Chloride Carbon Dioxide BUN 21 H Creatinine 0.5 L Glucose 119 H POC Glucose 130 H 111 H Lactic Acid Calcium 8.3 L Phosphorus Magnesium AST ALT Alkaline Phosphatase Lactate Dehydrogenase Troponin T C-Reactive Protein NT-Pro-B Natriuret Pep Total Protein Albumin LDL Cholesterol Direct Vitamin B12 Crossmatch 12/05/21 12/05/21 12/05/21 05:15 10:40 11:12 WBC RBC 2.98 L Hgb 8.1 L Hct 24.6 L MCV MCH 27 L MCHC RDW 20.8 H Plt Count Seg Neuts % (Manual) Lymphocytes % (Manual) Seg Neutrophils # Man Lymphocytes # (Manual) Monocytes # (Manual) PT INR D-Dimer ABG pH ABG pO2 ABG HCO3 ABG O2 Saturation ABG Base Excess ABG Hemoglobin Oxyhemoglobin Sodium Potassium Chloride Carbon Dioxide BUN Creatinine Glucose POC Glucose 107 H 110 H Lactic Acid Calcium Phosphorus Magnesium AST ALT Alkaline Phosphatase Lactate Dehydrogenase Troponin T C-Reactive Protein NT-Pro-B Natriuret Pep Total Protein Albumin LDL Cholesterol Direct Vitamin B12 Crossmatch 12/05/21 12/06/21 12/06/21 23:39 04:25 04:25 WBC RBC 2.95 L Hgb 7.9 L Hct 24.7 L MCV MCH 27 L MCHC RDW 20.9 H Plt Count Seg Neuts % (Manual) Lymphocytes % (Manual) Seg Neutrophils # Man Lymphocytes # (Manual) Monocytes # (Manual) PT INR D-Dimer ABG pH ABG pO2 ABG HCO3 ABG O2 Saturation ABG Base Excess ABG Hemoglobin Oxyhemoglobin Sodium Potassium Chloride Carbon Dioxide BUN 22 H Creatinine 0.5 L Glucose 136 H POC Glucose 118 H Lactic Acid Calcium 8.2 L Phosphorus Magnesium AST ALT Alkaline Phosphatase Lactate Dehydrogenase Troponin T C-Reactive Protein NT-Pro-B Natriuret Pep Total Protein Albumin LDL Cholesterol Direct Vitamin B12 Crossmatch 12/06/21 12/06/21 12/07/21 05:28 11:27 04:00 WBC RBC Hgb 7.2 L Hct 21.8 L MCV MCH MCHC RDW Plt Count Seg Neuts % (Manual) Lymphocytes % (Manual) Seg Neutrophils # Man Lymphocytes # (Manual) Monocytes # (Manual) PT INR D-Dimer ABG pH ABG pO2 ABG HCO3 ABG O2 Saturation ABG Base Excess ABG Hemoglobin Oxyhemoglobin Sodium Potassium Chloride Carbon Dioxide BUN Creatinine Glucose POC Glucose 142 H 126 H Lactic Acid Calcium Phosphorus Magnesium AST ALT Alkaline Phosphatase Lactate Dehydrogenase Troponin T C-Reactive Protein NT-Pro-B Natriuret Pep Total Protein Albumin LDL Cholesterol Direct Vitamin B12 Crossmatch 12/07/21 12/07/21 12/07/21 04:00 05:30 11:12 WBC RBC Hgb Hct MCV MCH MCHC RDW Plt Count Seg Neuts % (Manual) Lymphocytes % (Manual) Seg Neutrophils # Man Lymphocytes # (Manual) Monocytes # (Manual) PT INR D-Dimer ABG pH ABG pO2 ABG HCO3 ABG O2 Saturation ABG Base Excess ABG Hemoglobin Oxyhemoglobin Sodium Potassium Chloride Carbon Dioxide BUN 22 H Creatinine Glucose 119 H POC Glucose 121 H 124 H Lactic Acid Calcium 8.0 L Phosphorus Magnesium AST ALT Alkaline Phosphatase Lactate Dehydrogenase Troponin T C-Reactive Protein NT-Pro-B Natriuret Pep Total Protein Albumin LDL Cholesterol Direct Vitamin B12 Crossmatch 12/08/21 12/08/21 12/08/21 04:00 04:00 05:39 WBC RBC 2.81 L Hgb 7.7 L Hct 23.5 L MCV MCH MCHC RDW 21.2 H Plt Count Seg Neuts % (Manual) Lymphocytes % (Manual) Seg Neutrophils # Man Lymphocytes # (Manual) Monocytes # (Manual) PT INR D-Dimer ABG pH ABG pO2 ABG HCO3 ABG O2 Saturation ABG Base Excess ABG Hemoglobin Oxyhemoglobin Sodium 135 L Potassium Chloride Carbon Dioxide BUN 23 H Creatinine Glucose 109 H POC Glucose 112 H Lactic Acid Calcium Phosphorus Magnesium AST ALT Alkaline Phosphatase Lactate Dehydrogenase Troponin T C-Reactive Protein NT-Pro-B Natriuret Pep Total Protein Albumin LDL Cholesterol Direct Vitamin B12 Crossmatch 12/08/21 12/09/21 12/09/21 11:03 04:20 04:20 WBC RBC 2.67 L Hgb 7.6 L Hct 22.1 L MCV MCH MCHC RDW 20.8 H Plt Count Seg Neuts % (Manual) Lymphocytes % (Manual) Seg Neutrophils # Man Lymphocytes # (Manual) Monocytes # (Manual) PT INR D-Dimer ABG pH ABG pO2 ABG HCO3 ABG O2 Saturation ABG Base Excess ABG Hemoglobin Oxyhemoglobin Sodium 135 L Potassium Chloride 97.8 L Carbon Dioxide BUN 26 H Creatinine Glucose 119 H POC Glucose 108 H Lactic Acid Calcium 7.7 L Phosphorus Magnesium AST ALT Alkaline Phosphatase Lactate Dehydrogenase Troponin T C-Reactive Protein NT-Pro-B Natriuret Pep Total Protein Albumin LDL Cholesterol Direct Vitamin B12 Crossmatch 12/09/21 12/10/21 12/10/21 11:26 04:33 11:12 WBC RBC Hgb Hct MCV MCH MCHC RDW Plt Count Seg Neuts % (Manual) Lymphocytes % (Manual) Seg Neutrophils # Man Lymphocytes # (Manual) Monocytes # (Manual) PT INR D-Dimer ABG pH ABG pO2 ABG HCO3 ABG O2 Saturation ABG Base Excess ABG Hemoglobin Oxyhemoglobin Sodium 136 L Potassium Chloride Carbon Dioxide BUN 27 H Creatinine Glucose 117 H POC Glucose 110 H 117 H Lactic Acid Calcium 8.2 L Phosphorus Magnesium AST ALT Alkaline Phosphatase Lactate Dehydrogenase Troponin T C-Reactive Protein NT-Pro-B Natriuret Pep Total Protein Albumin LDL Cholesterol Direct Vitamin B12 Crossmatch 12/10/21 12/10/21 12/11/21 16:02 23:31 04:35 WBC RBC 2.57 L Hgb 7.0 L Hct 21.4 L MCV MCH 27 L MCHC RDW 21.1 H Plt Count Seg Neuts % (Manual) Lymphocytes % (Manual) Seg Neutrophils # Man Lymphocytes # (Manual) Monocytes # (Manual) PT INR D-Dimer ABG pH ABG pO2 ABG HCO3 ABG O2 Saturation ABG Base Excess ABG Hemoglobin Oxyhemoglobin Sodium Potassium Chloride Carbon Dioxide BUN Creatinine Glucose POC Glucose 137 H 111 H Lactic Acid Calcium Phosphorus Magnesium AST ALT Alkaline Phosphatase Lactate Dehydrogenase Troponin T C-Reactive Protein NT-Pro-B Natriuret Pep Total Protein Albumin LDL Cholesterol Direct Vitamin B12 Crossmatch 12/11/21 12/11/21 12/11/21 04:35 12:46 16:07 WBC RBC Hgb Hct MCV MCH MCHC RDW Plt Count Seg Neuts % (Manual) Lymphocytes % (Manual) Seg Neutrophils # Man Lymphocytes # (Manual) Monocytes # (Manual) PT INR D-Dimer ABG pH ABG pO2 ABG HCO3 ABG O2 Saturation ABG Base Excess ABG Hemoglobin Oxyhemoglobin Sodium 136 L Potassium Chloride Carbon Dioxide BUN 27 H Creatinine Glucose 112 H POC Glucose 115 H 111 H Lactic Acid Calcium 7.6 L Phosphorus Magnesium AST ALT Alkaline Phosphatase Lactate Dehydrogenase Troponin T C-Reactive Protein NT-Pro-B Natriuret Pep Total Protein Albumin LDL Cholesterol Direct Vitamin B12 Crossmatch 12/11/21 12/12/21 12/12/21 23:42 04:30 04:30 WBC RBC 2.60 L Hgb 7.1 L Hct 21.5 L MCV MCH 27 L MCHC RDW 20.3 H Plt Count Seg Neuts % (Manual) Lymphocytes % (Manual) Seg Neutrophils # Man Lymphocytes # (Manual) Monocytes # (Manual) PT INR D-Dimer ABG pH ABG pO2 ABG HCO3 ABG O2 Saturation ABG Base Excess ABG Hemoglobin Oxyhemoglobin Sodium 135 L Potassium Chloride 97.9 L Carbon Dioxide BUN 26 H Creatinine 0.5 L Glucose 138 H POC Glucose 115 H Lactic Acid Calcium 8.2 L Phosphorus Magnesium AST ALT Alkaline Phosphatase Lactate Dehydrogenase Troponin T C-Reactive Protein NT-Pro-B Natriuret Pep Total Protein Albumin LDL Cholesterol Direct Vitamin B12 Crossmatch 12/12/21 12/12/21 12/12/21 04:30 05:10 11:51 WBC RBC Hgb Hct MCV MCH MCHC RDW Plt Count Seg Neuts % (Manual) Lymphocytes % (Manual) Seg Neutrophils # Man Lymphocytes # (Manual) Monocytes # (Manual) PT INR D-Dimer ABG pH ABG pO2 ABG HCO3 ABG O2 Saturation ABG Base Excess ABG Hemoglobin Oxyhemoglobin Sodium Potassium Chloride Carbon Dioxide BUN Creatinine Glucose POC Glucose 119 H 119 H Lactic Acid Calcium Phosphorus Magnesium AST ALT Alkaline Phosphatase Lactate Dehydrogenase Troponin T C-Reactive Protein NT-Pro-B Natriuret Pep Total Protein Albumin LDL Cholesterol Direct Vitamin B12 Crossmatch See Detail 12/13/21 12/13/21 12/13/21 00:52 04:00 04:00 WBC RBC 2.73 L Hgb 7.4 L Hct 22.8 L MCV MCH 27 L MCHC RDW 20.5 H Plt Count Seg Neuts % (Manual) Lymphocytes % (Manual) Seg Neutrophils # Man Lymphocytes # (Manual) Monocytes # (Manual) PT INR D-Dimer ABG pH ABG pO2 ABG HCO3 ABG O2 Saturation ABG Base Excess ABG Hemoglobin Oxyhemoglobin Sodium 134 L Potassium Chloride 96.7 L Carbon Dioxide BUN 23 H Creatinine 0.5 L Glucose 131 H POC Glucose 131 H Lactic Acid Calcium 8.1 L Phosphorus Magnesium AST ALT Alkaline Phosphatase Lactate Dehydrogenase Troponin T C-Reactive Protein NT-Pro-B Natriuret Pep Total Protein Albumin LDL Cholesterol Direct Vitamin B12 Crossmatch 12/13/21 12/13/21 12/13/21 05:23 12:11 17:18 WBC RBC Hgb Hct MCV MCH MCHC RDW Plt Count Seg Neuts % (Manual) Lymphocytes % (Manual) Seg Neutrophils # Man Lymphocytes # (Manual) Monocytes # (Manual) PT INR D-Dimer ABG pH ABG pO2 ABG HCO3 ABG O2 Saturation ABG Base Excess ABG Hemoglobin Oxyhemoglobin Sodium Potassium Chloride Carbon Dioxide BUN Creatinine Glucose POC Glucose 121 H 143 H 148 H Lactic Acid Calcium Phosphorus Magnesium AST ALT Alkaline Phosphatase Lactate Dehydrogenase Troponin T C-Reactive Protein NT-Pro-B Natriuret Pep Total Protein Albumin LDL Cholesterol Direct Vitamin B12 Crossmatch 12/14/21 12/14/21 12/14/21 00:54 04:20 04:20 WBC RBC 2.39 L Hgb 6.5 L Hct 20.3 L MCV MCH 27 L MCHC RDW 20.3 H Plt Count Seg Neuts % (Manual) Lymphocytes % (Manual) Seg Neutrophils # Man Lymphocytes # (Manual) Monocytes # (Manual) PT INR D-Dimer ABG pH ABG pO2 ABG HCO3 ABG O2 Saturation ABG Base Excess ABG Hemoglobin Oxyhemoglobin Sodium 130 L Potassium Chloride 93.5 L Carbon Dioxide BUN 25 H Creatinine Glucose 123 H POC Glucose 123 H Lactic Acid Calcium 8.0 L Phosphorus Magnesium AST ALT Alkaline Phosphatase Lactate Dehydrogenase Troponin T C-Reactive Protein NT-Pro-B Natriuret Pep Total Protein Albumin LDL Cholesterol Direct Vitamin B12 Crossmatch 12/14/21 12/14/21 12/14/21 05:06 08:17 10:30 WBC RBC Hgb Hct MCV MCH MCHC RDW Plt Count Seg Neuts % (Manual) Lymphocytes % (Manual) Seg Neutrophils # Man Lymphocytes # (Manual) Monocytes # (Manual) PT INR D-Dimer ABG pH ABG pO2 ABG HCO3 ABG O2 Saturation ABG Base Excess ABG Hemoglobin Oxyhemoglobin Sodium Potassium Chloride Carbon Dioxide BUN Creatinine Glucose POC Glucose 131 H 119 H Lactic Acid Calcium Phosphorus Magnesium AST ALT Alkaline Phosphatase Lactate Dehydrogenase Troponin T C-Reactive Protein NT-Pro-B Natriuret Pep Total Protein Albumin LDL Cholesterol Direct Vitamin B12 Crossmatch See Detail 12/14/21 12/14/21 12/14/21 12:15 16:37 23:27 WBC RBC Hgb Hct MCV MCH MCHC RDW Plt Count Seg Neuts % (Manual) Lymphocytes % (Manual) Seg Neutrophils # Man Lymphocytes # (Manual) Monocytes # (Manual) PT INR D-Dimer ABG pH ABG pO2 ABG HCO3 ABG O2 Saturation ABG Base Excess ABG Hemoglobin Oxyhemoglobin Sodium Potassium Chloride Carbon Dioxide BUN Creatinine Glucose POC Glucose 147 H 141 H 130 H Lactic Acid Calcium Phosphorus Magnesium AST ALT Alkaline Phosphatase Lactate Dehydrogenase Troponin T C-Reactive Protein NT-Pro-B Natriuret Pep Total Protein Albumin LDL Cholesterol Direct Vitamin B12 Crossmatch 12/15/21 12/15/21 12/15/21 05:00 07:00 07:00 WBC 12.3 H RBC 3.27 L Hgb 8.8 L Hct 27.5 L D MCV MCH 27 L MCHC RDW 19.0 H Plt Count Seg Neuts % (Manual) Lymphocytes % (Manual) Seg Neutrophils # Man Lymphocytes # (Manual) Monocytes # (Manual) PT INR D-Dimer ABG pH ABG pO2 ABG HCO3 ABG O2 Saturation ABG Base Excess ABG Hemoglobin Oxyhemoglobin Sodium 134 L Potassium Chloride 95.7 L Carbon Dioxide BUN 28 H Creatinine Glucose 129 H POC Glucose 129 H Lactic Acid Calcium 8.2 L Phosphorus Magnesium AST ALT Alkaline Phosphatase Lactate Dehydrogenase Troponin T C-Reactive Protein NT-Pro-B Natriuret Pep Total Protein Albumin LDL Cholesterol Direct Vitamin B12 Crossmatch 12/15/21 12/15/21 12/15/21 11:18 16:00 23:39 WBC RBC Hgb Hct MCV MCH MCHC RDW Plt Count Seg Neuts % (Manual) Lymphocytes % (Manual) Seg Neutrophils # Man Lymphocytes # (Manual) Monocytes # (Manual) PT INR D-Dimer ABG pH ABG pO2 ABG HCO3 ABG O2 Saturation ABG Base Excess ABG Hemoglobin Oxyhemoglobin Sodium Potassium Chloride Carbon Dioxide BUN Creatinine Glucose POC Glucose 139 H 137 H 146 H Lactic Acid Calcium Phosphorus Magnesium AST ALT Alkaline Phosphatase Lactate Dehydrogenase Troponin T C-Reactive Protein NT-Pro-B Natriuret Pep Total Protein Albumin LDL Cholesterol Direct Vitamin B12 Crossmatch 12/16/21 12/16/21 12/16/21 05:24 10:21 10:21 WBC 15.3 H RBC 3.24 L Hgb 8.9 L Hct 27.7 L MCV MCH MCHC RDW 19.0 H Plt Count Seg Neuts % (Manual) Lymphocytes % (Manual) Seg Neutrophils # Man Lymphocytes # (Manual) Monocytes # (Manual) PT INR D-Dimer ABG pH ABG pO2 ABG HCO3 ABG O2 Saturation ABG Base Excess ABG Hemoglobin Oxyhemoglobin Sodium 131 L Potassium 3.5 L Chloride 92.7 L Carbon Dioxide BUN 36 H Creatinine Glucose 160 H POC Glucose 121 H Lactic Acid Calcium Phosphorus Magnesium 1.60 L AST ALT Alkaline Phosphatase Lactate Dehydrogenase Troponin T C-Reactive Protein NT-Pro-B Natriuret Pep Total Protein Albumin LDL Cholesterol Direct Vitamin B12 Crossmatch 12/16/21 12/16/21 12/16/21 11:21 18:28 20:52 WBC RBC Hgb Hct MCV MCH MCHC RDW Plt Count Seg Neuts % (Manual) Lymphocytes % (Manual) Seg Neutrophils # Man Lymphocytes # (Manual) Monocytes # (Manual) PT INR D-Dimer ABG pH 7.479 H ABG pO2 79.3 L ABG HCO3 27.3 H ABG O2 Saturation ABG Base Excess 3.6 H ABG Hemoglobin 9.1 L Oxyhemoglobin 94.9 L Sodium Potassium Chloride Carbon Dioxide BUN Creatinine Glucose POC Glucose 153 H 132 H Lactic Acid Calcium Phosphorus Magnesium AST ALT Alkaline Phosphatase Lactate Dehydrogenase Troponin T C-Reactive Protein NT-Pro-B Natriuret Pep Total Protein Albumin LDL Cholesterol Direct Vitamin B12 Crossmatch 12/16/21 12/17/21 12/17/21 23:30 04:25 04:25 WBC 12.3 H RBC 2.16 L Hgb 6.0 L Hct 18.1 L* D MCV MCH MCHC RDW 19.4 H Plt Count Seg Neuts % (Manual) Lymphocytes % (Manual) Seg Neutrophils # Man Lymphocytes # (Manual) Monocytes # (Manual) PT INR D-Dimer ABG pH ABG pO2 ABG HCO3 ABG O2 Saturation ABG Base Excess ABG Hemoglobin Oxyhemoglobin Sodium 132 L Potassium 3.2 L Chloride 112.0 H Carbon Dioxide BUN 32 H Creatinine Glucose 122 H POC Glucose 137 H Lactic Acid Calcium 6.8 L D Phosphorus Magnesium AST ALT Alkaline Phosphatase Lactate Dehydrogenase Troponin T C-Reactive Protein NT-Pro-B Natriuret Pep Total Protein Albumin LDL Cholesterol Direct Vitamin B12 Crossmatch 12/17/21 12/17/21 12/17/21 05:30 11:49 14:45 WBC RBC Hgb 9.7 L D Hct MCV MCH MCHC RDW Plt Count Seg Neuts % (Manual) Lymphocytes % (Manual) Seg Neutrophils # Man Lymphocytes # (Manual) Monocytes # (Manual) PT INR D-Dimer ABG pH ABG pO2 ABG HCO3 ABG O2 Saturation ABG Base Excess ABG Hemoglobin Oxyhemoglobin Sodium Potassium Chloride Carbon Dioxide BUN Creatinine Glucose POC Glucose 137 H 143 H Lactic Acid Calcium Phosphorus Magnesium AST ALT Alkaline Phosphatase Lactate Dehydrogenase Troponin T C-Reactive Protein NT-Pro-B Natriuret Pep Total Protein Albumin LDL Cholesterol Direct Vitamin B12 Crossmatch 12/17/21 12/18/21 12/18/21 17:01 05:04 05:04 WBC 13.8 H RBC 3.44 L Hgb 9.9 L Hct 28.8 L MCV MCH MCHC RDW 18.1 H Plt Count Seg Neuts % (Manual) Lymphocytes % (Manual) Seg Neutrophils # Man Lymphocytes # (Manual) Monocytes # (Manual) PT INR D-Dimer ABG pH ABG pO2 ABG HCO3 ABG O2 Saturation ABG Base Excess ABG Hemoglobin Oxyhemoglobin Sodium 132 L Potassium Chloride 97.4 L Carbon Dioxide BUN 38 H Creatinine Glucose 134 H POC Glucose 132 H Lactic Acid Calcium Phosphorus Magnesium AST ALT Alkaline Phosphatase Lactate Dehydrogenase Troponin T C-Reactive Protein NT-Pro-B Natriuret Pep Total Protein Albumin LDL Cholesterol Direct Vitamin B12 Crossmatch 12/18/21 12/18/21 12/18/21 05:28 10:57 16:27 WBC RBC Hgb Hct MCV MCH MCHC RDW Plt Count Seg Neuts % (Manual) Lymphocytes % (Manual) Seg Neutrophils # Man Lymphocytes # (Manual) Monocytes # (Manual) PT INR D-Dimer ABG pH ABG pO2 ABG HCO3 ABG O2 Saturation ABG Base Excess ABG Hemoglobin Oxyhemoglobin Sodium Potassium Chloride Carbon Dioxide BUN Creatinine Glucose POC Glucose 118 H 132 H 130 H Lactic Acid Calcium Phosphorus Magnesium AST ALT Alkaline Phosphatase Lactate Dehydrogenase Troponin T C-Reactive Protein NT-Pro-B Natriuret Pep Total Protein Albumin LDL Cholesterol Direct Vitamin B12 Crossmatch 12/19/21 12/19/21 12/19/21 00:02 04:41 04:41 WBC 16.0 H RBC 3.45 L Hgb 9.7 L Hct 29.1 L MCV MCH MCHC RDW 17.8 H Plt Count Seg Neuts % (Manual) Lymphocytes % (Manual) Seg Neutrophils # Man Lymphocytes # (Manual) Monocytes # (Manual) PT INR D-Dimer ABG pH ABG pO2 ABG HCO3 ABG O2 Saturation ABG Base Excess ABG Hemoglobin Oxyhemoglobin Sodium 133 L Potassium Chloride 97.9 L Carbon Dioxide BUN 36 H Creatinine 0.5 L Glucose 126 H POC Glucose 127 H Lactic Acid Calcium 8.3 L Phosphorus Magnesium AST ALT Alkaline Phosphatase Lactate Dehydrogenase Troponin T C-Reactive Protein NT-Pro-B Natriuret Pep Total Protein Albumin LDL Cholesterol Direct Vitamin B12 Crossmatch 12/19/21 12/19/21 12/19/21 05:26 12:20 16:43 WBC RBC Hgb Hct MCV MCH MCHC RDW Plt Count Seg Neuts % (Manual) Lymphocytes % (Manual) Seg Neutrophils # Man Lymphocytes # (Manual) Monocytes # (Manual) PT INR D-Dimer ABG pH ABG pO2 ABG HCO3 ABG O2 Saturation ABG Base Excess ABG Hemoglobin Oxyhemoglobin Sodium Potassium Chloride Carbon Dioxide BUN Creatinine Glucose POC Glucose 119 H 145 H 126 H Lactic Acid Calcium Phosphorus Magnesium AST ALT Alkaline Phosphatase Lactate Dehydrogenase Troponin T C-Reactive Protein NT-Pro-B Natriuret Pep Total Protein Albumin LDL Cholesterol Direct Vitamin B12 Crossmatch 12/19/21 12/20/21 12/20/21 23:30 04:54 04:54 WBC 12.3 H RBC 3.54 L Hgb 10.0 L Hct 29.5 L MCV MCH MCHC RDW 17.8 H Plt Count Seg Neuts % (Manual) 88.0 H Lymphocytes % (Manual) 6.0 L Seg Neutrophils # Man 10.8 H Lymphocytes # (Manual) 0.7 L Monocytes # (Manual) PT INR D-Dimer ABG pH ABG pO2 ABG HCO3 ABG O2 Saturation ABG Base Excess ABG Hemoglobin Oxyhemoglobin Sodium 131 L Potassium Chloride 96.2 L Carbon Dioxide BUN 36 H Creatinine 0.5 L Glucose 130 H POC Glucose 117 H Lactic Acid Calcium Phosphorus Magnesium AST ALT Alkaline Phosphatase Lactate Dehydrogenase Troponin T C-Reactive Protein NT-Pro-B Natriuret Pep Total Protein Albumin LDL Cholesterol Direct Vitamin B12 Crossmatch 12/20/21 12/20/21 12/20/21 05:20 11:51 17:30 WBC RBC Hgb Hct MCV MCH MCHC RDW Plt Count Seg Neuts % (Manual) Lymphocytes % (Manual) Seg Neutrophils # Man Lymphocytes # (Manual) Monocytes # (Manual) PT INR D-Dimer ABG pH ABG pO2 ABG HCO3 ABG O2 Saturation ABG Base Excess ABG Hemoglobin Oxyhemoglobin Sodium Potassium Chloride Carbon Dioxide BUN Creatinine Glucose POC Glucose 126 H 119 H 127 H Lactic Acid Calcium Phosphorus Magnesium AST ALT Alkaline Phosphatase Lactate Dehydrogenase Troponin T C-Reactive Protein NT-Pro-B Natriuret Pep Total Protein Albumin LDL Cholesterol Direct Vitamin B12 Crossmatch 12/21/21 12/21/21 12/21/21 00:45 04:21 04:21 WBC RBC 3.47 L Hgb 9.4 L Hct 29.2 L MCV MCH 27 L MCHC RDW 18.1 H Plt Count Seg Neuts % (Manual) Lymphocytes % (Manual) Seg Neutrophils # Man Lymphocytes # (Manual) Monocytes # (Manual) PT INR D-Dimer ABG pH ABG pO2 ABG HCO3 ABG O2 Saturation ABG Base Excess ABG Hemoglobin Oxyhemoglobin Sodium 134 L Potassium Chloride Carbon Dioxide BUN 35 H Creatinine 0.5 L Glucose 122 H POC Glucose 125 H Lactic Acid Calcium 8.2 L Phosphorus Magnesium AST ALT Alkaline Phosphatase Lactate Dehydrogenase Troponin T C-Reactive Protein NT-Pro-B Natriuret Pep Total Protein Albumin LDL Cholesterol Direct Vitamin B12 Crossmatch 12/21/21 12/21/21 12/21/21 05:38 11:29 16:16 WBC RBC Hgb Hct MCV MCH MCHC RDW Plt Count Seg Neuts % (Manual) Lymphocytes % (Manual) Seg Neutrophils # Man Lymphocytes # (Manual) Monocytes # (Manual) PT INR D-Dimer ABG pH ABG pO2 ABG HCO3 ABG O2 Saturation ABG Base Excess ABG Hemoglobin Oxyhemoglobin Sodium Potassium Chloride Carbon Dioxide BUN Creatinine Glucose POC Glucose 127 H 121 H 113 H Lactic Acid Calcium Phosphorus Magnesium AST ALT Alkaline Phosphatase Lactate Dehydrogenase Troponin T C-Reactive Protein NT-Pro-B Natriuret Pep Total Protein Albumin LDL Cholesterol Direct Vitamin B12 Crossmatch 12/22/21 12/22/21 12/23/21 04:58 04:58 06:40 WBC 11.5 H RBC 3.43 L Hgb 9.8 L Hct 28.7 L MCV MCH MCHC RDW 18.5 H 17.9 H Plt Count Seg Neuts % (Manual) Lymphocytes % (Manual) Seg Neutrophils # Man Lymphocytes # (Manual) Monocytes # (Manual) PT INR D-Dimer ABG pH ABG pO2 ABG HCO3 ABG O2 Saturation ABG Base Excess ABG Hemoglobin Oxyhemoglobin Sodium 130 L Potassium Chloride 97.8 L Carbon Dioxide BUN 31 H Creatinine 0.5 L Glucose 122 H POC Glucose Lactic Acid Calcium 7.9 L Phosphorus Magnesium AST ALT Alkaline Phosphatase Lactate Dehydrogenase Troponin T C-Reactive Protein NT-Pro-B Natriuret Pep Total Protein Albumin LDL Cholesterol Direct Vitamin B12 Crossmatch 12/23/21 12/23/21 12/24/21 06:40 23:25 04:24 WBC 11.7 H RBC Hgb 9.8 L Hct MCV MCH 26 L MCHC RDW 18.1 H Plt Count Seg Neuts % (Manual) Lymphocytes % (Manual) Seg Neutrophils # Man Lymphocytes # (Manual) Monocytes # (Manual) PT INR D-Dimer ABG pH ABG pO2 ABG HCO3 ABG O2 Saturation ABG Base Excess ABG Hemoglobin Oxyhemoglobin Sodium 136 L Potassium Chloride Carbon Dioxide BUN 27 H Creatinine 0.4 L Glucose 107 H POC Glucose 110 H Lactic Acid Calcium 8.1 L Phosphorus Magnesium AST ALT Alkaline Phosphatase Lactate Dehydrogenase Troponin T C-Reactive Protein NT-Pro-B Natriuret Pep Total Protein Albumin LDL Cholesterol Direct Vitamin B12 Crossmatch 12/24/21 12/24/21 12/24/21 04:24 11:08 15:45 WBC RBC Hgb Hct MCV MCH MCHC RDW Plt Count Seg Neuts % (Manual) Lymphocytes % (Manual) Seg Neutrophils # Man Lymphocytes # (Manual) Monocytes # (Manual) PT INR D-Dimer ABG pH ABG pO2 ABG HCO3 ABG O2 Saturation ABG Base Excess ABG Hemoglobin Oxyhemoglobin Sodium 132 L Potassium Chloride Carbon Dioxide BUN 27 H Creatinine 0.3 L Glucose 108 H POC Glucose 116 H 107 H Lactic Acid Calcium Phosphorus Magnesium AST ALT Alkaline Phosphatase Lactate Dehydrogenase Troponin T C-Reactive Protein NT-Pro-B Natriuret Pep Total Protein Albumin LDL Cholesterol Direct Vitamin B12 Crossmatch 12/24/21 12/25/21 12/25/21 23:43 05:29 11:48 WBC RBC Hgb Hct MCV MCH MCHC RDW Plt Count Seg Neuts % (Manual) Lymphocytes % (Manual) Seg Neutrophils # Man Lymphocytes # (Manual) Monocytes # (Manual) PT INR D-Dimer ABG pH ABG pO2 ABG HCO3 ABG O2 Saturation ABG Base Excess ABG Hemoglobin Oxyhemoglobin Sodium Potassium Chloride Carbon Dioxide BUN Creatinine Glucose POC Glucose 123 H 107 H 119 H Lactic Acid Calcium Phosphorus Magnesium AST ALT Alkaline Phosphatase Lactate Dehydrogenase Troponin T C-Reactive Protein NT-Pro-B Natriuret Pep Total Protein Albumin LDL Cholesterol Direct Vitamin B12 Crossmatch 12/26/21 12/26/21 12/26/21 00:06 05:56 07:51 WBC 11.4 H RBC 3.40 L Hgb 9.3 L Hct 28.3 L MCV MCH 27 L MCHC RDW 18.2 H Plt Count Seg Neuts % (Manual) Lymphocytes % (Manual) Seg Neutrophils # Man Lymphocytes # (Manual) Monocytes # (Manual) PT INR D-Dimer ABG pH ABG pO2 ABG HCO3 ABG O2 Saturation ABG Base Excess ABG Hemoglobin Oxyhemoglobin Sodium Potassium Chloride Carbon Dioxide BUN Creatinine Glucose POC Glucose 133 H 107 H Lactic Acid Calcium Phosphorus Magnesium AST ALT Alkaline Phosphatase Lactate Dehydrogenase Troponin T C-Reactive Protein NT-Pro-B Natriuret Pep Total Protein Albumin LDL Cholesterol Direct Vitamin B12 Crossmatch 12/26/21 12/26/21 12/26/21 07:51 11:43 17:06 WBC RBC Hgb Hct MCV MCH MCHC RDW Plt Count Seg Neuts % (Manual) Lymphocytes % (Manual) Seg Neutrophils # Man Lymphocytes # (Manual) Monocytes # (Manual) PT INR D-Dimer ABG pH ABG pO2 ABG HCO3 ABG O2 Saturation ABG Base Excess ABG Hemoglobin Oxyhemoglobin Sodium 136 L Potassium Chloride Carbon Dioxide BUN 25 H Creatinine 0.3 L Glucose 131 H POC Glucose 119 H 128 H Lactic Acid Calcium Phosphorus Magnesium AST ALT Alkaline Phosphatase Lactate Dehydrogenase Troponin T C-Reactive Protein NT-Pro-B Natriuret Pep Total Protein Albumin LDL Cholesterol Direct Vitamin B12 Crossmatch 12/28/21 12/28/21 09:05 09:05 WBC RBC Hgb Hct MCV MCH 27 L MCHC RDW 18.4 H Plt Count Seg Neuts % (Manual) Lymphocytes % (Manual) Seg Neutrophils # Man Lymphocytes # (Manual) Monocytes # (Manual) PT INR D-Dimer ABG pH ABG pO2 ABG HCO3 ABG O2 Saturation ABG Base Excess ABG Hemoglobin Oxyhemoglobin Sodium 135 L Potassium Chloride 97.8 L Carbon Dioxide BUN 18 H Creatinine 0.3 L Glucose POC Glucose Lactic Acid Calcium Phosphorus Magnesium AST ALT Alkaline Phosphatase Lactate Dehydrogenase Troponin T C-Reactive Protein NT-Pro-B Natriuret Pep Total Protein Albumin LDL Cholesterol Direct Vitamin B12 Crossmatch Allied health notes reviewed: nursing
[2021-12-28] MEDS: VANCOMYCIN/NS 1 GM/250 ML 1 GM/250 ML BAG IV SCH (17:00)
[2021-12-28] MEDS: PRAVASTATIN 20 MG TAB PO SCH (21:50)
[2021-12-28] MEDS: MELATONIN 5 MG TAB PO SCH (21:50)
[2021-12-28] MEDS: traZODone 50 MG TAB PO SCH (21:51)
[2021-12-29] MEDS: DOCUSATE SODIUM 100 MG/10 ML ORAL LIQD PO SCH ×3 (00:26→21:55)
[2021-12-29 05:07] LABS: Hematocrit 26.4 % (30.3-42.9); Hemoglobin 8.9 gm/dl (10.1-14.3); Mean Corpuscular HGB Conc 34 % (30-34); Mean Corpuscular Volume 83 fl (79-97); Platelet Count 262 K/mm3 (140-440); Red Blood Count 3.19 M/mm3 (3.65-5.03); Red Cell Distribution Width 17.9 % (13.2-15.2)
[2021-12-29 05:24] LABS: Blood Urea Nitrogen 17 mg/dL (7-17); Calcium 8.3 mg/dL (8.4-10.2); Hemolysis Index 5
[2021-12-29 05:26] LABS: BUN/Creatinine Ratio 57
[2021-12-29] MEDS: METOCLOPRAMIDE 10 MG/2 ML INJ IV SCH ×3 (05:32→21:50)
[2021-12-29] MEDS: LEVOTHYROXINE 125 MCG TAB PO SCH (05:33)
[2021-12-29] MEDS: HYDROcodone/ACETAMINOPHEN 10-325MG TAB FEEDTUBE SCH ×3 (07:25→21:51)
[2021-12-29] MEDS: GABAPENTIN 100 MG CAP PO SCH (09:34)
[2021-12-29] MEDS: HYDROmorphone 1 MG/1 ML INJ IV PRN ×2 (09:34→14:45)
[2021-12-29] MEDS: SUCRALFATE 1 GM/10 ML ORAL LIQD PO SCH ×4 (09:34→21:53)
[2021-12-29] MEDS: METOPROLOL TARTRATE 25 MG TAB PO SCH ×2 (09:43→21:52)
[2021-12-29] MEDS: busPIRone 5 MG TAB PO SCH ×2 (09:43→21:52)
[2021-12-29] MEDS: QUEtiapine 25 MG TAB PO SCH ×2 (09:43→21:53)
[2021-12-29] MEDS: POLYETHYLENE GLYCOL 3350 17 GM POWDER PO SCH (09:44)
[2021-12-29] MEDS: LANSOPRAZOLE 30 MG SOLUTAB FEEDTUBE SCH ×2 (09:44→21:52)
--- NOTE | 2021-12-29 09:50 | Progress Note ---
Assessment and Plan Assessment and plan: This is a 81-year-old female with known history of diabetes mellitus, hypertension, PPM, and arthritis admitted for sepsis and acute hypoxia respiratory failure 2/2 bilateral pneumonia requiring intubation and ventilatory support Hospital Course to date: ------ 12/04: Increased agitation and anxiety overnight, remains on buspar and seroquel, trazadone added to promote rest. Patient is now working with PT, keep patient engage and awake during the day so she can rest at night. No BM for over 5 days, BR was adjusted. Patient did not tolerate PST again yesterday, continue daily PST as tolerated. Continue to titrate pressor for MAP above 65. Pending possible LTAC placement, case management to arrange. 12/05: Still not getting much rest overnight, will add melatonin for sleep. Continue to engage patient during the day and promote rest at night. TF was held due to concern for possible bleeding, H&H remains stable and stools normal this am. Resume TF and continue PPI and carafate. Remains on low dose levophed, titrate as tolerated. Continue daily PST. Possible LTAC placement, awaiting approval. 12/06: [facility] overnight. Patient rested overnight. Continue supportive measures. Daily PST as tolerated. Awaiting possible LTAC placement 12/07: [facility] overnight. Plan for Tpiece trial today. Continue current supportive measures. Possible LTAC placement 12/08: Patient placed on pressure support trial again today, started on Xanax, no acute events reported overnight. Awaiting insurance approval for LTAC. 12/09: Levophed discontinued, LTAC transfer denied, started on midodrine and Lasix, ultrasound chest pending, started on Xanax 0.[address] De León updated family at bedside today. Started on Dilaudid every 3 hours as needed. 12/10: Patient placed on CPAP trial this morning, no acute events reported overnight. Will order ultrasound-guided thoracentesis. 12/11: Patient had a thoracentesis today, will decrease Xanax dosage and continue midodrine and diuresing. Patient failed CPAP today. 12/12: Patient not tolerate CPAP trials today, no acute events reported overnight 12/13: No acute events overnight. continue PSV trials as tolerated. Daughter updated at bedside 12/14: Patient noted to be anemic today, worsened gastric occult. Patient seems to be oversedated therefore Xanax changed to as needed and fentanyl patch discontinued. We will continue to monitor hyponatremia. 12/15: [facility] overnight. s/p 1unit of PRBCs, H&H stable this am, no signs of any active bleeding. Continue daily PST as tolerated. Awaiting placement. 12/16: Hypertensive this am, Midodrine decreased. Continue daily PST. [facility] overnight 12/17: Patient Hgb dropped to 6 this am, no s/s of any active bleeding, VSS. Patient received 1unit of PRBC, will continue to trend H&H. Patient was pancultured and back on IV Abx due to persistent fevers yesterday. ID is also back on the case. Continue IV Abx per ID and f/u on cultures data for sensitivity. Patient also failed PST yesterday, continue daily PST as tolerated. Electrolytes repleted, repeat labs in the am. 12/18: Patient blood cultures is growing GPC 4 out 4 bottles. PICC line D/Sara, patient is already on IV Abx-cefepine and Vanc and ID is following. Patient remains hemodynamically stable. Daily PST as tolerated adn PRN Benzo for anxiety. 12/19: [facility] overnight. Culture data noted, continue IV Abx per ID. Orders placed for repeat Bculture. Sánchez D/C overnight, patient is voiding. Check bladder scan as needed for retention. Patient failed PST again today. Continue daily PST as tolerated. 12/20: Fevers improved, Cultures +MRSA, on Vanco per ID. Repeat 2D Echo to r/o endocarditis. Patient continue to fail PST, PEEP increased to 8 today. Continue pulmonary hygiene and vent wean per [facility]. Sodium tab added for hyponatremia. 12/21: Remains afebrile, repeat B.culture with NGTD, 2D echo noted with no o bvious vegetation noted. Continue IV Vanc per ID. Hyponatremia improved. Tolerating PST this am, Continue daily PST. 12/22: Patient on pressure support trial for approximately 4 hours today, midodrine dosage increased due to hypotension. Lasix discontinued. 12/23: Started on a.m. Seroquel dose, midodrine increased to 10 mg 3 times daily, 500 mL normal saline bolus. 12/24: Seroquel dose changed (25 every morning, 75 nightly). updated at bedside by Dr. De León. CPAP trials as tolerated. Continue vancomycin. Awaiting placement. 12/25: Continue CPAP as tolerated, added gasx for distention. Continue supportive care 12/26: Patient failed PSV this AM. no acute events overnight. 12/27: GI re-consulted due to abdominal distention. No acute events reported overnight. CPAP trials as tolerated. Dr. Mckenna will get a KUB to rule out possible obstruction. 12/28: KUB shows no acute process, CXR shows improvement. CPAP trials as tolerated. 12/29: CT Abd/pelvis noted with moderated bilateral pleural effusion, anarsaca, and ascites. X1dose of IV lasix administered. D/w CCM and GI orders plan for thora and paracentesis by IR. Will also start patient on aldactone Qday. Patient is tolerating trickle feeds this am, continue TF and BR adjusted for constipation. Plan of care was discussed with patient and her at the bedside. Thorough discussion on patient's overall poor prognosis and that patient will most likely be vent dependent. Patient's voiced understanding of the info given. All questions and concerns were voiced at this time. Assessment and Plan #MRSA Bacteremia #MRSA Pneumonia #Septic Shock POA-resolved - Presented with fevers, leukocytosis, and hypotension - COVID PCR negative - 11/04 Bcult with 3/4 group B strep bacteremia, [id number] Bculture NGTD - 11/04 2D Echo with no evidence of vegetation - New fevers on 12/16- Blood and sputum culture with MRSA - 12/16- UA is unremarkable - 12/18 repeat B.culture with NGTD - 12/19 Repeat 2D echo- with no obvious vegetation noted. EF 35-40% - ID on consult, appreciate recommendations - Continue IV vanc per ID - Trend CBC #Acute Hypoxic Respiratory Failure 11/19 #MRSA Pneumonia #Bilateral Pleural Effusion #Right Pneumothorax-resolved - COVID PCR negative - CXR shows Bilateral opacities, may be volume overloaded - CCM consulted, appreciate recommendations - Intubated on 11/06, ETT exchanged on 11/11 - 11/11 Bronchoscopy--Complicated by spontaneous pneumothorax - 11/11 S/p chest tube placement for right pneumothorax, removed by patient on 11/15 - 11/26 s/p Tracheostomy and PEGtube placement - 12/11 thoracentesis due to moderate pleural effusion-1L removed - This am Vent Setting:CPAP-30%,8 PS-20 - Continue Nebs treatment - Continue daily PST as tolerated - VAP bundle addressed - Aspiration precaution HOB above 30 - PRN ABG and CXR per CCM - Continue SPO2 monitoring for SPO2 goal above 92% - 12/28 CT Abd/Pelvis noted - X1 dose of IV Lasix - Plan for possible Thoracentesis and Paracentesis by IR #CHF- EF 30-35% with PPM #Hypotension-resolved #Septic Kristian-resolved - SR on the monitor, HR 70-90s - 11/04 Echo-EF 30-35% - 12/19 Repeat EF 35-40% - Continue beta-charleen - Not on aspirin due to allergy - Statins resumed - Continue blood pressure monitor per protocol - Maintain MAP above 65 - Cardiology signed off #Acute Microcytic Anemia #Acute Blood Loss-resolved #Acute GI Bleed-resolved - s/p a total of 7units of PRBCs since admit - 11/18 EGD- Large cratered ulcer in the posterior duodenal bulb about 2 cm in diameter. Visible vessel present. Mild active oozing from the ulcer bed. A total of 3 injections were performed around the ulcer for a total of 2.5 cc of dilute epinephrine and hemostasis was obtained.--> See full report - GI signed off - Stool occult still positive - H&H stable - Continue PPI and Carafate - Continue to trend CBC - Transfuse for H&H less than 7 - Hold AC for now #Hyponatremia #Hypokalemia - On PO lasix - X1 dose of PO sodium tab given - Strict intake and output - Continue to monitor and replace electrolytes as needed - Trend BMP,mag, & phosp #Urinary Retention-resolved - Sánchez reinserted on 11/19 for retention - Sánchez D/sara, patient is voiding - Bladder scan with no residual #Acute DVT in RLE - BLE doppler + Acute DVT in the right external iliac vein, common femoral vein, and superior aspect of femoral vein - Was on Therapeutic Lovenox- held to due GI Bleed - 11/17 s/p IVC filter placement by Vascular Surg #Agitation/Anxiety #Chronic Pain #Acute Encephalopathy-Resolved - Awake and following commands - Continue Buspar and seroquel - PRN Xanax for anxiety - CT head and EEG noted - Neurology consulted - PRN analgesia for pain management #Transaminitis/Shock Liver - Probably due to bacteria/spetic shock - Continue to Trend LFTs #Endo: h/o DM and hypothyroidism - Continue home Synthroid - Accu-Cheks every 6 - Avoid hypoglycemia The high probability of a clinically significant, sudden or life threatening deterioration of the [multi] system(s) required my full and direct attention, intervention and personal management. The aggregate critical care time was [60] minutes. This time is in addition to time spent performing reported procedures but includes the following: [x] Data Review and interpretation [x] Patient assessment and monitoring of vital signs [x] Documentation [x] Medication orders and management Disposition Plan: ICU Total Time Spent with Patient (Minutes): 60 History Interval history: Patient seen and examined at the bedside. Remains stable on the vent, AAO, following commands. Tolerating PST this am. [facility] overnight Hospitalist Physical - Constitutional Vitals: Temp Pulse Resp BP Pulse Ox 96.8 F L 75 15 132/60 100 12/29/21 03:46 12/29/21 09:24 12/29/21 08:00 12/29/21 09:24 12/29/21 09:24 General appearance: Present: no acute distress, other (Trach and on the vent) - EENT Eyes: Present: PERRL ENT: hearing intact - Neck Neck: Present: normal ROM - Respiratory Respiratory effort: normal Respiratory: bilateral: rhonchi - Cardiovascular Rhythm: regular Heart Sounds: Present: S1 & S2 - Extremities Extremities: no ischemia, pulses intact, pulses symmetrical Extremity abnormal: edema - Peripheral Assessment Generalized Edema Type: Pitting Edema Degree: 3+ Capillary Refill: < 3 seconds Skin Temperature: Warm Peripheral Pulses: within normal limits - Abdominal General gastrointestinal: soft, non-distended, normal bowel sounds - Integumentary Integumentary: Present: warm, dry - Psychiatric Psychiatric: appropriate mood/affect, cooperative - Neurologic Neurologic: moves all extremities - Allied Health Allied health notes reviewed: nursing, case management HEART Score - HEART Score Troponin: Troponin T 0.045 ng/mL (0.00-0.029) H 11/29/21 20:15 Results - Labs CBC & Chem 7: 12/29/21 04:40 12/29/21 04:40 Labs: Laboratory Last Values WBC 9.1 K/mm3 (4.5-11.0) 12/29/21 04:40 RBC 3.19 M/mm3 (3.65-5.03) L 12/29/21 04:40 Hgb 8.9 gm/dl (10.1-14.3) L 12/29/21 04:40 Hct 26.4 % (30.3-42.9) L 12/29/21 04:40 MCV 83 fl (79-97) 12/29/21 04:40 MCH 28 pg (28-32) 12/29/21 04:40 MCHC 34 % (30-34) 12/29/21 04:40 RDW 17.9 % (13.2-15.2) H 12/29/21 04:40 Plt Count 262 K/mm3 (140-440) 12/29/21 04:40 Add Manual Diff Complete 12/20/21 04:54 Total Counted 100 12/20/21 04:54 Seg Neutrophils % [employer] 11/06/21 15:50 Seg Neuts % (Manual) 88.0 % (40.0-70.0) H 12/20/21 04:54 Band Neutrophils % 0 % 12/20/21 04:54 Lymphocytes % (Manual) 6.0 % (13.4-35.0) L 12/20/21 04:54 Reactive Lymphs % (Man) 0 % 12/20/21 04:54 Monocytes % (Manual) 5.0 % (0.0-7.3) 12/20/21 04:54 Eosinophils % (Manual) 1.0 % (0.0-4.3) 12/20/21 04:54 Basophils % (Manual) 0 % (0.0-1.8) 12/20/21 04:54 Metamyelocytes % 0 % 12/20/21 04:54 Myelocytes % 0 % 12/20/21 04:54 Promyelocytes % 0 % 12/20/21 04:54 Blast Cells % 0 % 12/20/21 04:54 Nucleated RBC % Not Reportable 12/20/21 04:54 Seg Neutrophils # Man 10.8 K/mm3 (1.8-7.7) H 12/20/21 04:54 Band Neutrophils # 0.0 K/mm3 12/20/21 04:54 Lymphocytes # (Manual) 0.7 K/mm3 (1.2-5.4) L 12/20/21 04:54 Abs React Lymphs (Man) 0.0 K/mm3 12/20/21 04:54 Monocytes # (Manual) 0.6 K/mm3 (0.0-0.8) 12/20/21 04:54 Eosinophils # (Manual) 0.1 K/mm3 (0.0-0.4) 12/20/21 04:54 Basophils # (Manual) 0.0 K/mm3 (0.0-0.1) 12/20/21 04:54 Metamyelocytes # 0.0 K/mm3 12/20/21 04:54 Myelocytes # 0.0 K/mm3 12/20/21 04:54 Promyelocytes # 0.0 K/mm3 12/20/21 04:54 Blast Cells # 0.0 K/mm3 12/20/21 04:54 WBC Morphology Not Reportable 12/20/21 04:54 Hypersegmented Neuts Not Reportable 12/20/21 04:54 Hyposegmented Neuts Not Reportable 12/20/21 04:54 Hypogranular Neuts Not Reportable 12/20/21 04:54 Smudge Cells Not Reportable 12/20/21 04:54 Toxic Granulation Not Reportable 12/20/21 04:54 Toxic Vacuolation Not Reportable 12/20/21 04:54 Dohle Bodies Not Reportable 12/20/21 04:54 Pelger-Huet Anomaly Not Reportable 12/20/21 04:54 Irina Rods Not Reportable 12/20/21 04:54 Platelet Estimate Consistent w auto 12/20/21 04:54 Clumped Platelets Not Reportable 12/20/21 04:54 Plt Clumps, EDTA Not Reportable 12/20/21 04:54 Large Platelets Not Reportable 12/20/21 04:54 Giant Platelets Not Reportable 12/20/21 04:54 Platelet Satelliting Not Reportable 12/20/21 04:54 Plt Morphology Comment Not Reportable 12/20/21 04:54 RBC Morphology Not Reportable 12/20/21 04:54 Dimorphic RBCs Not Reportable 12/20/21 04:54 Polychromasia Not Reportable 12/20/21 04:54 Hypochromasia Not Reportable 12/20/21 04:54 Poikilocytosis Not Reportable 12/20/21 04:54 Anisocytosis 1+ 12/20/21 04:54 Microcytosis Not Reportable 12/20/21 04:54 Macrocytosis Not Reportable 12/20/21 04:54 Spherocytes Not Reportable 12/20/21 04:54 Pappenheimer Bodies Not Reportable 12/20/21 04:54 Sickle Cells Not Reportable 12/20/21 04:54 Target Cells Not Reportable 12/20/21 04:54 Tear Drop Cells Not Reportable 12/20/21 04:54 Ovalocytes Not Reportable 12/20/21 04:54 Helmet Cells Not Reportable 12/20/21 04:54 [place] Bodies Not Reportable 12/20/21 04:54 [place] Rings Not Reportable 12/20/21 04:54 Malcom Cells Not Reportable 12/20/21 04:54 Bite Cells Not Reportable 12/20/21 04:54 Crenated Cell Not Reportable 12/20/21 04:54 Elliptocytes Not Reportable 12/20/21 04:54 Acanthocytes (Spur) Not Reportable 12/20/21 04:54 Rouleaux Not Reportable 12/20/21 04:54 Hemoglobin C Crystals Not Reportable 12/20/21 04:54 Schistocytes Not Reportable 12/20/21 04:54 Malaria parasites Not Reportable 12/20/21 04:54 Godfrey Bodies Not Reportable 12/20/21 04:54 Hem Pathologist Commnt No 12/20/21 04:54 PT 16.9 Sec. (12.2-14.9) H 11/26/21 05:00 INR 1.24 (0.87-1.13) H 11/26/21 05:00 APTT 29.2 Sec. (24.2-36.6) 11/26/21 05:00 D-Dimer 2655.00 ng/mlDDU (0-234) H 11/11/21 04:28 ABG pH 7.479 pH Units (7.350-7.450) H 12/16/21 20:52 ABG pCO2 37.5 mm Hg 12/16/21 20:52 ABG pO2 79.3 mm Hg (80.0-90.0) L 12/16/21 20:52 ABG HCO3 27.3 mmol/L (20.0-26.0) H 12/16/21 20:52 ABG O2 Saturation 97.0 % (95.0-99.0) 12/16/21 20:52 ABG O2 Content 12.3 (0.0-44) 12/16/21 20:52 ABG Base Excess 3.6 mmol/L (-2.0-3.0) H 12/16/21 20:52 ABG Hemoglobin 9.1 gm/dl (12.0-16.0) L 12/16/21 20:52 ABG Carboxyhemoglobin 1.6 % (0.0-5.0) 12/16/21 20: ABG Methemoglobin 0.5 % (0.0-1.5) 12/16/21 20:52 Oxyhemoglobin 94.9 % (95.0-99.0) L 12/16/21 20:52 FiO2 30 % 12/16/21 20:52 Sodium 136 mmol/L (137-145) L 12/29/21 04:40 Potassium 4.2 mmol/L (3.6-5.0) 12/29/21 04:40 Chloride 99.8 mmol/L (98-107) 12/29/21 04:40 Carbon Dioxide 26 mmol/L (22-30) 12/29/21 04:40 Anion Gap 14 mmol/L 12/29/21 04:40 BUN 17 mg/dL (7-17) 12/29/21 04:40 Creatinine 0.3 mg/dL (0.6-1.2) L 12/29/21 04:40 Estimated GFR > 60 ml/min 12/29/21 04:40 BUN/Creatinine Ratio 57 % 12/29/21 04:40 Glucose 80 mg/dL (65-100) 12/29/21 04:40 POC Glucose 70 mg/dL (70-105) 12/29/21 08:22 Lactic Acid 3.70 mmol/L (0.7-2.0) H* 11/03/21 22:32 Calcium 8.3 mg/dL (8.4-10.2) L 12/29/21 04:40 Phosphorus 3.40 mg/dL (2.5-4.5) 12/21/21 04:21 Magnesium 1.70 mg/dL (1.7-2.3) 12/21/21 04:21 Ferritin 52.6 ng/mL (10.0-200.0) 11/05/21 06:11 Total Bilirubin 0.50 mg/dL (0.1-1.2) 11/17/21 05:56 Direct Bilirubin < 0.2 mg/dL (0-0.2) 11/11/21 04:28 Indirect Bilirubin 0.1 mg/dL 11/11/21 04:28 AST 36 units/L (5-40) 11/17/21 05:56 ALT 47 units/L (7-56) 11/17/21 05:56 Alkaline Phosphatase 107 units/L (35-129) 11/17/21 05:56 Ammonia 42.0 umol/L (25-60) 11/10/21 14:08 Lactate Dehydrogenase 187 units/L (91-180) H 11/05/21 06:11 Troponin T 0.045 ng/mL (0.00-0.029) H 11/29/21 20:15 C-Reactive Protein 22.20 mg/dL (0.00-1.30) H 11/05/21 06:11 NT-Pro-B Natriuret Pep 7895 pg/mL (0-900) H 11/03/21 22:32 Total Protein 5.1 g/dL (6.3-8.2) L 11/17/21 05:56 Albumin 2.2 g/dL (3.9-5) L 11/17/21 05:56 Albumin/Globulin Ratio 0.8 % 11/17/21 05:56 Triglycerides 59 mg/dL (2-149) 11/29/21 20:15 Cholesterol 74 mg/dL (50-199) 11/29/21 20:15 LDL Cholesterol Direct 25 mg/dL (50-130) L 11/29/21 20:15 HDL Cholesterol 41 mg/dL (40-59) 11/29/21 20:15 Cholesterol/HDL Ratio 1.80 % 11/29/21 20:15 Vitamin B12 1823 pg/mL (211-911) H 11/10/21 14:08 TSH 1.510 mlU/mL (0.270-4.200) 11/10/21 14:08 Urine Color Yellow (Yellow) 11/11/21 09:00 Urine Turbidity Slightly-cloudy (Clear) 11/11/21 09:00 Urine pH 5.0 (5.0-7.0) 11/11/21 09:00 Ur Specific [place] 1.009 (1.003-1.030) 11/11/21 09:00 Urine Protein <15 mg/dl mg/dL (Negative) 11/11/21 09:00 Urine Glucose (UA) Neg mg/dL (Negative) 11/11/21 09:00 Urine Ketones Neg mg/dL (Negative) 11/11/21 09:00 Urine Blood Mod (Negative) 11/11/21 09:00 Urine Nitrite Neg (Negative) 11/11/21 09:00 Urine Bilirubin Neg (Negative) 11/11/21 09:00 Urine Urobilinogen < 2.0 mg/dL (<2.0) 11/11/21 09:00 Ur Leukocyte Esterase Neg (Negative) 11/11/21 09:00 Urine WBC (Auto) < 1.0 /HPF (0.0-6.0) 11/11/21 09:00 Urine RBC (Auto) < 1.0 /HPF (0.0-6.0) 11/11/21 09:00 Vancomycin Trough 14.4 ug/mL (5.0-20.0) 12/26/21 Unknown Coronavirus (PCR) Negative (Negative) 11/10/21 08:30 Blood Type O POSITIVE 12/14/21 10:30 Antibody Screen Negative 12/14/21 10:30 Crossmatch See Detail 12/14/21 10:30 Sánchez/IV: Voiding Method External Female Catheter Active Medications - Current Medications Current Medications: Generic Name Dose Route Start Last Admin Trade Name Freq PRN Reason Stop Dose Admin Acetaminophen 650 mg 12/14/21 04:12 12/16/21 13:34 Acetaminophen 325 Mg/10.15 Ml Oral Liqd Unit Dose FEEDTUBE 650 mg Q6H PRN Administration Non Cardiac Pain or Temp>100.5 Hydrocodone Bitart/Acetaminophen 1 each 11/21/21 10:00 12/29/21 07:25 Hydrocodone/Acetaminophen 10-325mg Tab FEEDTUBE 1 each TID YOSSI Administration Albumin Human 25 gm 12/29/21 09:49 Albumin Human 25% (25 Gm/100 Ml) Inj IV 12/29/21 09:50 ONCE ONE Alprazolam 0.25 mg 12/14/21 09:00 12/28/21 12:05 Alprazolam 0.25 Mg Tab PO 0.25 mg Q8H PRN Administration Agitation Lipase/Protease/Amylase 1 each 11/08/21 11:09 Lipase 10,500/Protease 25,000/Amylase 43,750 (Units) Dr Lema FEEDTUBE PRN PRN For Clogged Feeding Tube Buspirone HCl 7.5 mg 11/17/21 22:00 12/29/21 09:43 Buspirone 5 Mg Tab PO 7.5 mg BID YOSSI Administration Dextrose 0 ml 11/10/21 10:52 11/21/21 16:27 Dextrose 10% *Hypoglycemia IV 50 ml PRN PRN Administration Hypoglycemia Docusate Sodium 100 mg 12/04/21 11:00 12/29/21 09:34 Docusate Sodium 100 Mg/10 Ml Oral Liqd PO 100 mg BID YOSSI Administration Furosemide 40 mg 12/29/21 10:30 Furosemide 40 Mg/4 Ml Inj IV 12/29/21 10:31 ONCE ONE Gabapentin 100 mg 12/01/21 10:00 12/29/21 09:34 Gabapentin 100 Mg Cap PO 100 mg QDAY YOSSI Administration Hydromorphone HCl 0.5 mg 12/08/21 20:06 12/29/21 09:34 Hydromorphone 1 Mg/1 Ml Inj IV 0.5 mg Q3H PRN Administration Pain, Moderate (4-6) Hydrophilic Ointment 1 applic 11/06/21 04:02 Lip Therapy Vaseline TP Q2HR PRN Dry Lips Vancomycin HCl 1 gm in 250 mls @ 166.667 mls/hr 12/16/21 14:00 12/28/21 17:00 Vancomycin/Ns 1 Gm/250 Ml IV 01/26/22 15:29 166.66 mls/hr Q24H YOSSI Administration Protocol Lansoprazole 30 mg 11/24/21 22:00 12/29/21 09:44 Lansoprazole 30 Mg Solutab FEEDTUBE 30 mg BID YOSSI Administration Levothyroxine Sodium 125 mcg 11/05/21 07:00 12/29/21 05:33 Levothyroxine 125 Mcg Tab PO 125 mcg DAILY@0600 YOSSI Administration Melatonin 5 mg 12/05/21 22:00 12/28/21 21:50 Melatonin 5 Mg Tab PO 5 mg QHS [facility] Administration Metoclopramide HCl 5 mg 12/27/21 14:00 12/29/21 05:32 Metoclopramide 10 Mg/2 Ml Inj IV 5 mg Q8H [facility] Administration Metoprolol Tartrate 6.25 mg 12/08/21 22:52 12/29/21 09:43 Metoprolol Tartrate 25 Mg Tab PO 6.25 mg BID [facility] Administration Midodrine 5 mg 12/27/21 08:00 12/28/21 18:26 Midodrine 5 Mg Tab PO Not Given TID@0800,1200,1600 [facility] Multi-Ingred Cream/Lotion/Oil/Oint 1 applic 11/06/21 04:02 Mineral Oil/Petrolatum, White Ophth Oint 3.5 Gm OU Q4HR PRN Dry Eye(s) Nitroglycerin 0.4 mg 11/30/21 11:36 Nitroglycerin 0.4 Mg Tab Subl SL .Q5MIN PRN Chest Pain Ondansetron HCl 4 mg 12/05/21 10:00 12/27/21 16:04 Ondansetron 4 Mg/2 Ml Inj IV 4 mg Q8H PRN Administration Nausea And Vomiting Polyethylene Glycol 17 gm 12/02/21 10:00 12/29/21 09:44 Polyethylene Glycol 3350 17 Gm Powder PO 17 gm QDAY [facility] Administration Pravastatin Sodium 20 mg 11/18/21 22:00 12/28/21 21:50 Pravastatin 20 Mg Tab PO 20 mg QHS [facility] Administration Quetiapine Fumarate 75 mg 12/24/21 22:00 12/28/21 21:50 Quetiapine 25 Mg Tab PO 75 mg QHS [facility] Administration Quetiapine Fumarate 25 mg 12/25/21 10:00 12/29/21 09:43 Quetiapine 25 Mg Tab PO 25 mg QAM [facility] Administration Simple Syrup 15 ml 11/08/21 11:09 Simple Syrup 15 Ml FEEDTUBE PRN PRN Hypoglycemia Simple Syrup 30 ml 11/08/21 11:09 Simple Syrup 15 Ml FEEDTUBE PRN PRN Hypoglycemia Sodium Bicarbonate 325 mg 11/08/21 11:09 Sodium Bicarbonate 325 Mg Tab FEEDTUBE PRN PRN For Clogged Feeding Tube Sodium Chloride 10 ml 11/04/21 10:00 12/29/21 09:44 Sodium Chloride 0.9% 10 Ml Flush Syringe IV 10 ml BID YOSSI Administration Sodium Chloride 10 ml 11/04/21 02:03 Sodium Chloride 0.9% 10 Ml Flush Syringe IV PRN PRN LINE FLUSH Sucralfate 1 gm 11/18/21 16:30 12/29/21 09:34 Sucralfate 1 Gm/10 Ml Oral Liqd PO 1 gm ACHS YOSIS Administration Trazodone HCl 50 mg 12/04/21 22:00 12/28/21 21:51 Trazodone 50 Mg Tab PO 50 mg QHS YOSSI Administration Nutrition/Malnutrition Assess - Dietary Evaluation Nutrition/Malnutrition Findings: Nutrition Notes Start: 11/04/21 17:16 Freq: Status: Active Protocol: Document 12/26/21 16:55 [facility] (Rec: 12/26/21 16:56 [facility] [id number]) Nutrition Notes Initial or Follow up Brief Note Current Diet TF - Vital AF 1.2 at 45ml/hr Subjective/Other Information Per RN, pt tolerating TF at goal rate of 45ml/hr. Pt remains on vent support. Nutrition Intervention Follow-Up By: 01/02/22 Additional Comments F/U: stable TF, vent status, wt
[2021-12-29] MEDS ORDERED: ALBUMIN HUMAN 25% (25 GM/100 ML) INJ IV SCH (10:00)
[2021-12-29] MEDS ORDERED: FUROSEMIDE 40 MG/4 ML INJ IV SCH (10:30)
[2021-12-29] MEDS: SENNOSIDES ORAL LIQD 8.8 MG/5 ML ORAL LIQD FEEDTUBE SCH ×2 (11:30→21:55)
--- NOTE | 2021-12-29 11:32 | Gastroenterology Progress Note ---
Assessment and Plan # Duodenal ulcer - EGD 11/18 FINDINGS: * No gross lesions in the 2nd portion of the duodenum * Large cratered ulcer in the posterior duodenal bulb about 2 cm in diameter. Visible vessel present. Mild active oozing from the ulcer bed. A total of 3 injections were performed around the ulcer for a total of 2.5 cc of dilute epinephrine and hemostasis was obtained. However, because location of the ulcer could not inject circumferentially around the ulcer only able to inject around 60% of the circumference * Mostly healed clean-based ulcer in the anterior duodenal bulb with surrounding edema and erythema, no high risk stigmata * Mild to moderate atrophic gastritis throughout the entire stomach. Scattered erythema. 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 - H/H stable. # Abdominal distension/nausea/vomiting - KUB from 12/27 unremarkable. - CT a/p with no signs of GOO or bowel obstruction but showed pleural effusion and ascites/anasarca. patient started on lasix. - increase tube feeds as tolerated. - recommend abdominal US to evaluate for paracentesis. - cont with PPI, lansoprazole. - will sign off. please call as needed. Subjective Date of service: 12/29/21 Principal diagnosis: Septic shock; AHRF; Anemia; Pneumonia; pleural effusion; HFrEF; Pulm HTN Interval history: Patient tolerating trickle feed of tube feeds. No nausea. CT done. Objective - Constitutional Vitals: Temp Pulse Resp BP Pulse Ox 96.8 F L 75 33 H 139/58 97 12/29/21 03:46 12/29/21 11:22 12/29/21 11:22 12/29/21 11:22 12/29/21 11:22 General appearance: no acute distress - EENT Eyes: EOM intact ENT: hearing decreased - Respiratory Respiratory effort: normal - Cardiovascular Rhythm: regular Heart Sounds: Present: S1 & S2 - Gastrointestinal General gastrointestinal: Present: soft, non-tender, distended - Integumentary Integumentary: Present: clear, warm - Labs CBC & Chem 7: 12/29/21 04:40 12/29/21 04:40 Labs: Laboratory Results - last 24 hr 12/28/21 12/28/21 12/28/21 11:55 16:34 23:38 WBC RBC Hgb Hct MCV MCH MCHC RDW Plt Count Sodium Potassium Chloride Carbon Dioxide Anion Gap BUN Creatinine Estimated GFR BUN/Creatinine Ratio Glucose POC Glucose 88 82 72 Calcium 12/29/21 12/29/21 12/29/21 04:40 04:40 05:37 WBC 9.1 RBC 3.19 L Hgb 8.9 L Hct 26.4 L MCV 83 MCH 28 MCHC 34 RDW 17.9 H Plt Count 262 Sodium 136 L Potassium 4.2 Chloride 99.8 Carbon Dioxide 26 Anion Gap 14 BUN 17 Creatinine 0.3 L Estimated GFR > 60 BUN/Creatinine Ratio 57 Glucose 80 POC Glucose 70 Calcium 8.3 L 12/29/21 08:22 WBC RBC Hgb Hct MCV MCH MCHC RDW Plt Count Sodium Potassium Chloride Carbon Dioxide Anion Gap BUN Creatinine Estimated GFR BUN/Creatinine Ratio Glucose POC Glucose 70 Calcium
--- NOTE | 2021-12-29 12:29 | Progress Note ---
Assessment and Plan Severe Sepsis POA vs septic shock- 11/03/2021 blood culture: 2 sets positive for GPC -Repeat cultures positive for MRSA Acute respiratory failure with hypoxia, s/p trach on MVS Acute microcytic anemia Bilateral pneumonia Left pleural effusion Cardiomyopathy EF 30-35% Moderate pulmonary HTN RVSP 49 Acute DVT s/p IVC Anemia Mild hyponatremia Daily SBTs as tolerated. Diagnostic and therapeutic thoracentesis today Star Spironolactone to help with recurrent edema Diuretic therapy as tolerated by renal function and hemodynamics Continue to monitor hemoglobin and transfuse as clinically indicated to keep HgB>7g/dL Continue to optimize enteric nutritional support Maintain sleep-wake cycle PT/OT, increase activity Antibiotics per ID - continue to titrate supplemental oxygen to keep SPO2 88-90% - VAP bundle addressed, aspiration precautions, HOB >40 - continue bronchodilators with pulmonary hygiene per RT - continue avoid nephrotoxins, renally dose all medications - Accuchecks with glycemic control per SSI (While critically ill target blood glucose of 140-180 mg/dL; avoid hypoglycemia) - continue to avoid benzodiazepines, reduce the possibility of delirium -trend temperature curve, trend WCC, - Maintenance of sleep-wake cycle, avoid delirium -Stress ulcer prophylaxis (Lansoprazole) -VTE prophyalxis- s/p IVC filter. No anticoagulation 11/18 EGD- Large cratered ulcer in the posterior duodenal bulb about 2 cm in diameter.Visible vessel present. Mild active oozing from the ulcer bed. A total of 3 injections were performed around the ulcer for a total of 2.5 cc of dilute epinephrine and hemostasis was obtained. -mobility, off loading and frequent turning to prevent pressure ulcer -continue with enteric nutritional support via PEG,at goal rate - Continue to monitor hemodynamics closely - continue other care per attending / other consultants COVID SPECIFIC INTERVENTIONS - Negative CONDITION: FAIR PROGNOSIS: GUARDED CODE STATUS: FULL CODE The high probability of a clinically significant, sudden or life-threatening deterioration of the [respiratory, cardiovascular and hematologic] system(s) required my full and direct attention, intervention and personal management. The aggregate critical care time was [33] minutes without overlap. Time includes spent on; [x] Data Review and interpretation [x] Patient assessment and monitoring of vital signs [x] Documentation [x] Medication orders and management Subjective Date of service: 12/29/21 Principal diagnosis: Septic shock; AHRF; Anemia; Pneumonia; pleural effusion; HFrEF; Pulm HTN Interval history: Follow up fro acute hypoxemic resp failure s/p tracheostomy to MVS ; Septic and cardiogenic shock; severe anemia; Patient seen and examined. Vitals, labs, medications, chart and imaging reviewed. Discussed with respiratory and nursing care staff. On full support, not tolerating SBTs. Awake and alert, interactive- generalized edema Plan for therapeutic thoracentesis today Objective Vital Signs - 12hr 12/29/21 12/29/21 12/29/21 01:01 02:01 03:01 Temperature Pulse Rate 60 62 60 Pulse Rate [ From Monitor] Respiratory 14 14 14 Rate Blood Pressure 89/35 103/42 96/38 O2 Sat by Pulse 99 99 99 Oximetry O2 Sat by Pulse Oximetry [ Assessment] 12/29/21 12/29/21 12/29/21 03:46 03:48 04:00 Temperature 96.8 F L Pulse Rate 61 Pulse Rate [ 88 From Monitor] Respiratory 14 Rate Blood Pressure 120/51 120/51 O2 Sat by Pulse 95 99 Oximetry O2 Sat by Pulse Oximetry [ Assessment] 12/29/21 12/29/21 12/29/21 04:50 05:00 06:00 Temperature Pulse Rate 68 63 63 Pulse Rate [ From Monitor] Respiratory 0 L 14 13 Rate Blood Pressure 98/53 105/54 131/53 O2 Sat by Pulse 100 99 98 Oximetry O2 Sat by Pulse Oximetry [ Assessment] 12/29/21 12/29/21 12/29/21 07:00 08:00 09:24 Temperature Pulse Rate 65 63 75 Pulse Rate [ 62 From Monitor] Respiratory 12 16 Rate Blood Pressure 102/45 132/60 132/60 O2 Sat by Pulse 97 100 99 Oximetry O2 Sat by Pulse 100 Oximetry [ Assessment] 12/29/21 12/29/21 11:22 12:00 Temperature Pulse Rate 75 70 Pulse Rate [ From Monitor] Respiratory 33 H Rate Blood Pressure 139/58 142/67 O2 Sat by Pulse 97 100 Oximetry O2 Sat by Pulse Oximetry [ Assessment] Constitutional: alert, appears uncomfortable (restless really), other (trach to MVS, frail elderly woman with mildly increased respiratory effort at rest) Eyes: non-icteric ENT: oropharynx moist, other (+ Midline tracheostomy with minimal secretions) Neck: supple, no lymphadenopathy, no JVD Effort: mildly labored Ascultation: Bilateral: diminished breath sounds, rhonchi, other (Right chest tube) Percussion: Bilateral: not dull Cardiovascular: regular rate and rhythm, other (S1,S2) Gastrointestinal: normoactive bowel sounds, soft, non-tender, non-distended (protuberant) Integumentary: normal Extremities: no cyanosis, pink and warm, pulses normal, edema (upper etremities), anasarca Neurologic: non-focal exam (grossly), pupils equal and round, motor strength normal and Psychiatric: mood appropriate, affect normal CBC and BMP: 12/31/21 04:00 12/31/21 04:00 ABG, PT/INR, D-dimer: ABG ABG pH 7.479 pH Units (7.350-7.450) H 12/16/21 20:52 ABG pCO2 37.5 mm Hg 12/16/21 20:52 ABG pO2 79.3 mm Hg (80.0-90.0) L 12/16/21 20:52 ABG O2 Saturation 97.0 % (95.0-99.0) 12/16/21 20:52 PT/INR, D-dimer PT 16.9 Sec. (12.2-14.9) H 11/26/21 05:00 INR 1.24 (0.87-1.13) H 11/26/21 05:00 D-Dimer 2655.00 ng/mlDDU (0-234) H 11/11/21 04:28 Abnormal lab findings: Abnormal Labs 11/03/21 11/03/21 11/03/21 22:32 22:32 22:32 WBC 29.3 H RBC 2.93 L Hgb 6.1 L Hct 21.9 L MCV 75 L MCH 21 L MCHC 28 L RDW 19.7 H Plt Count Seg Neuts % (Manual) 97.0 H Lymphocytes % (Manual) 3.0 L Seg Neutrophils # Man 28.4 H Lymphocytes # (Manual) 0.9 L Monocytes # (Manual) PT 18.6 H INR 1.40 H D-Dimer ABG pH ABG pO2 ABG HCO3 ABG O2 Saturation ABG Base Excess ABG Hemoglobin Oxyhemoglobin Sodium Potassium Chloride Carbon Dioxide 20 L BUN 33 H Creatinine Glucose 119 H POC Glucose Lactic Acid Calcium 8.3 L Phosphorus Magnesium AST ALT Alkaline Phosphatase Lactate Dehydrogenase Troponin T 0.035 H C-Reactive Protein NT-Pro-B Natriuret Pep Total Protein Albumin LDL Cholesterol Direct 34 L Vitamin B12 Crossmatch 11/03/21 11/03/21 11/03/21 22:32 22:32 23:57 WBC RBC Hgb Hct MCV MCH MCHC RDW Plt Count Seg Neuts % (Manual) Lymphocytes % (Manual) Seg Neutrophils # Man Lymphocytes # (Manual) Monocytes # (Manual) PT INR D-Dimer ABG pH ABG pO2 ABG HCO3 ABG O2 Saturation ABG Base Excess ABG Hemoglobin Oxyhemoglobin Sodium Potassium Chloride Carbon Dioxide BUN Creatinine Glucose POC Glucose Lactic Acid 3.70 H* Calcium Phosphorus Magnesium AST ALT Alkaline Phosphatase 139 H Lactate Dehydrogenase Troponin T C-Reactive Protein NT-Pro-B Natriuret Pep 7895 H Total Protein Albumin 3.5 L LDL Cholesterol Direct Vitamin B12 Crossmatch See Detail 11/04/21 11/04/21 11/05/21 00:59 13:58 00:51 WBC 27.9 H RBC 3.28 L Hgb 7.3 L Hct 25.5 L MCV 78 L MCH 22 L MCHC 29 L RDW 19.1 H Plt Count Seg Neuts % (Manual) 96.0 H Lymphocytes % (Manual) 2.0 L Seg Neutrophils # Man 26.8 H Lymphocytes # (Manual) 0.6 L Monocytes # (Manual) PT INR D-Dimer ABG pH ABG pO2 ABG HCO3 ABG O2 Saturation ABG Base Excess ABG Hemoglobin Oxyhemoglobin Sodium Potassium Chloride Carbon Dioxide BUN Creatinine Glucose POC Glucose Lactic Acid Calcium Phosphorus Magnesium AST ALT Alkaline Phosphatase Lactate Dehydrogenase Troponin T 0.051 H D 0.032 H D C-Reactive Protein NT-Pro-B Natriuret Pep Total Protein Albumin LDL Cholesterol Direct Vitamin B12 Crossmatch 11/05/21 11/05/21 11/05/21 06:11 06:11 06:11 WBC 31.8 H RBC 3.57 L Hgb 8.0 L Hct 27.7 L MCV 78 L MCH 22 L MCHC 29 L RDW 19.2 H Plt Count Seg Neuts % (Manual) 91.0 H Lymphocytes % (Manual) 4.5 L Seg Neutrophils # Man 28.9 H Lymphocytes # (Manual) Monocytes # (Manual) 1.1 H PT INR D-Dimer 1494.53 H ABG pH ABG pO2 ABG HCO3 ABG O2 Saturation ABG Base Excess ABG Hemoglobin Oxyhemoglobin Sodium Potassium Chloride Carbon Dioxide 19 L BUN 42 H Creatinine Glucose 115 H POC Glucose Lactic Acid Calcium Phosphorus Magnesium AST 43 H ALT Alkaline Phosphatase Lactate Dehydrogenase 187 H Troponin T C-Reactive Protein 22.20 H NT-Pro-B Natriuret Pep Total Protein 6.0 L Albumin 3.2 L LDL Cholesterol Direct Vitamin B12 Crossmatch 11/05/21 11/05/21 11/06/21 06:11 12:15 00:30 WBC RBC Hgb Hct MCV MCH MCHC RDW Plt Count Seg Neuts % (Manual) Lymphocytes % (Manual) Seg Neutrophils # Man Lymphocytes # (Manual) Monocytes # (Manual) PT INR D-Dimer ABG pH ABG pO2 ABG HCO3 ABG O2 Saturation ABG Base Excess ABG Hemoglobin Oxyhemoglobin Sodium Potassium Chloride Carbon Dioxide BUN Creatinine Glucose POC Glucose 113 H 69 L Lactic Acid Calcium Phosphorus Magnesium AST ALT Alkaline Phosphatase Lactate Dehydrogenase Troponin T 0.033 H C-Reactive Protein NT-Pro-B Natriuret Pep Total Protein Albumin LDL Cholesterol Direct Vitamin B12 Crossmatch 11/06/21 11/06/21 11/06/21 05:50 15:50 15:50 WBC 25.5 H RBC 3.62 L Hgb 8.0 L Hct 27.5 L MCV 76 L MCH 22 L MCHC 29 L RDW 19.6 H Plt Count Seg Neuts % (Manual) 92.0 H Lymphocytes % (Manual) 5.0 L Seg Neutrophils # Man 23.5 H Lymphocytes # (Manual) Monocytes # (Manual) PT INR D-Dimer ABG pH 7.305 L ABG pO2 ABG HCO3 15.8 L ABG O2 Saturation ABG Base Excess -9.6 L ABG Hemoglobin 8.6 L Oxyhemoglobin 94.6 L Sodium Potassium Chloride 113.9 H Carbon Dioxide 17 L BUN 56 H Creatinine Glucose 114 H POC Glucose Lactic Acid Calcium 7.9 L Phosphorus Magnesium AST 1410 H ALT 934 H Alkaline Phosphatase 142 H Lactate Dehydrogenase Troponin T C-Reactive Protein NT-Pro-B Natriuret Pep Total Protein 5.0 L Albumin 2.6 L LDL Cholesterol Direct Vitamin B12 Crossmatch 11/07/21 11/07/21 11/07/21 03:30 04:50 08:07 WBC RBC Hgb Hct MCV MCH MCHC RDW Plt Count Seg Neuts % (Manual) Lymphocytes % (Manual) Seg Neutrophils # Man Lymphocytes # (Manual) Monocytes # (Manual) PT INR D-Dimer ABG pH ABG pO2 296.9 H ABG HCO3 18.1 L ABG O2 Saturation 99.5 H ABG Base Excess -5.9 L ABG Hemoglobin 7.6 L Oxyhemoglobin Sodium Potassium Chloride Carbon Dioxide BUN Creatinine Glucose POC Glucose 106 H 108 H Lactic Acid Calcium Phosphorus Magnesium AST ALT Alkaline Phosphatase Lactate Dehydrogenase Troponin T C-Reactive Protein NT-Pro-B Natriuret Pep Total Protein Albumin LDL Cholesterol Direct Vitamin B12 Crossmatch 11/08/21 11/08/21 11/08/21 03:10 18:05 23:43 WBC RBC Hgb Hct MCV MCH MCHC RDW Plt Count Seg Neuts % (Manual) Lymphocytes % (Manual) Seg Neutrophils # Man Lymphocytes # (Manual) Monocytes # (Manual) PT INR D-Dimer ABG pH ABG pO2 127.4 H ABG HCO3 ABG O2 Saturation ABG Base Excess -3.4 L ABG Hemoglobin 7.4 L Oxyhemoglobin Sodium Potassium Chloride Carbon Dioxide BUN Creatinine Glucose POC Glucose 113 H 141 H Lactic Acid Calcium Phosphorus Magnesium AST ALT Alkaline Phosphatase Lactate Dehydrogenase Troponin T C-Reactive Protein NT-Pro-B Natriuret Pep Total Protein Albumin LDL Cholesterol Direct Vitamin B12 Crossmatch 11/08/21 11/08/21 11/09/21 Unknown Unknown 02:00 WBC 14.5 H RBC 3.35 L Hgb 7.5 L 8.1 L Hct 25.4 L 27.6 L MCV 76 L 76 L MCH 23 L 22 L MCHC RDW 19.9 H 19.9 H Plt Count Seg Neuts % (Manual) Lymphocytes % (Manual) Seg Neutrophils # Man Lymphocytes # (Manual) Monocytes # (Manual) PT INR D-Dimer ABG pH ABG pO2 ABG HCO3 ABG O2 Saturation ABG Base Excess ABG Hemoglobin Oxyhemoglobin Sodium 154 H D Potassium 3.3 L Chloride 120.7 H Carbon Dioxide 20 L BUN 38 H Creatinine Glucose POC Glucose Lactic Acid Calcium 8.3 L Phosphorus Magnesium AST ALT Alkaline Phosphatase Lactate Dehydrogenase Troponin T C-Reactive Protein NT-Pro-B Natriuret Pep Total Protein Albumin LDL Cholesterol Direct Vitamin B12 Crossmatch 11/09/21 11/09/21 11/09/21 02:00 02:31 05:12 WBC RBC Hgb Hct MCV MCH MCHC RDW Plt Count Seg Neuts % (Manual) Lymphocytes % (Manual) Seg Neutrophils # Man Lymphocytes # (Manual) Monocytes # (Manual) PT INR D-Dimer ABG pH 7.479 H ABG pO2 121.3 H ABG HCO3 ABG O2 Saturation ABG Base Excess ABG Hemoglobin 7.3 L Oxyhemoglobin Sodium Potassium Chloride 112.5 H Carbon Dioxide BUN 33 H Creatinine Glucose 161 H POC Glucose 135 H Lactic Acid Calcium Phosphorus Magnesium AST 251 H ALT 481 H Alkaline Phosphatase Lactate Dehydrogenase Troponin T C-Reactive Protein NT-Pro-B Natriuret Pep Total Protein 5.0 L Albumin 2.8 L LDL Cholesterol Direct Vitamin B12 Crossmatch 11/09/21 11/09/21 11/09/21 11:33 16:32 23:28 WBC RBC Hgb Hct MCV MCH MCHC RDW Plt Count Seg Neuts % (Manual) Lymphocytes % (Manual) Seg Neutrophils # Man Lymphocytes # (Manual) Monocytes # (Manual) PT INR D-Dimer ABG pH ABG pO2 ABG HCO3 ABG O2 Saturation ABG Base Excess ABG Hemoglobin Oxyhemoglobin Sodium Potassium Chloride Carbon Dioxide BUN Creatinine Glucose POC Glucose 132 H 133 H 143 H Lactic Acid Calcium Phosphorus Magnesium AST ALT Alkaline Phosphatase Lactate Dehydrogenase Troponin T C-Reactive Protein NT-Pro-B Natriuret Pep Total Protein Albumin LDL Cholesterol Direct Vitamin B12 Crossmatch 11/10/21 11/10/21 11/10/21 04:00 04:00 05:35 WBC 16.0 H RBC 3.61 L Hgb 8.0 L Hct 27.1 L MCV 75 L MCH 22 L MCHC RDW 20.4 H Plt Count Seg Neuts % (Manual) Lymphocytes % (Manual) Seg Neutrophils # Man Lymphocytes # (Manual) Monocytes # (Manual) PT INR D-Dimer ABG pH ABG pO2 ABG HCO3 ABG O2 Saturation ABG Base Excess ABG Hemoglobin Oxyhemoglobin Sodium 149 H Potassium Chloride 114.1 H Carbon Dioxide BUN 31 H Creatinine Glucose 148 H POC Glucose 132 H Lactic Acid Calcium 8.2 L Phosphorus Magnesium AST ALT Alkaline Phosphatase Lactate Dehydrogenase Troponin T C-Reactive Protein NT-Pro-B Natriuret Pep Total Protein Albumin LDL Cholesterol Direct Vitamin B12 Crossmatch 11/10/21 11/10/21 11/10/21 11:31 14:08 15:35 WBC RBC Hgb Hct MCV MCH MCHC RDW Plt Count Seg Neuts % (Manual) Lymphocytes % (Manual) Seg Neutrophils # Man Lymphocytes # (Manual) Monocytes # (Manual) PT INR D-Dimer ABG pH ABG pO2 126.6 H ABG HCO3 ABG O2 Saturation ABG Base Excess ABG Hemoglobin 7.4 L Oxyhemoglobin Sodium Potassium Chloride Carbon Dioxide BUN Creatinine Glucose POC Glucose 147 H Lactic Acid Calcium Phosphorus Magnesium AST ALT Alkaline Phosphatase Lactate Dehydrogenase Troponin T C-Reactive Protein NT-Pro-B Natriuret Pep Total Protein Albumin LDL Cholesterol Direct Vitamin B12 1823 H Crossmatch 11/10/21 11/11/21 11/11/21 17:53 00:55 04:28 WBC RBC Hgb Hct MCV MCH MCHC RDW Plt Count Seg Neuts % (Manual) Lymphocytes % (Manual) Seg Neutrophils # Man Lymphocytes # (Manual) Monocytes # (Manual) PT INR D-Dimer ABG pH ABG pO2 ABG HCO3 ABG O2 Saturation ABG Base Excess ABG Hemoglobin Oxyhemoglobin Sodium 149 H Potassium Chloride 112.2 H Carbon Dioxide BUN 34 H Creatinine Glucose 148 H POC Glucose 140 H 145 H Lactic Acid Calcium 7.9 L Phosphorus Magnesium AST 53 H ALT 203 H Alkaline Phosphatase Lactate Dehydrogenase Troponin T C-Reactive Protein NT-Pro-B Natriuret Pep Total Protein 4.9 L Albumin 2.6 L LDL Cholesterol Direct Vitamin B12 Crossmatch 11/11/21 11/11/21 11/11/21 04:28 04:28 05:28 WBC 20.9 H RBC 3.47 L Hgb 7.5 L Hct 26.0 L MCV 75 L MCH 22 L MCHC 29 L RDW 21.6 H Plt Count 132 L Seg Neuts % (Manual) Lymphocytes % (Manual) Seg Neutrophils # Man Lymphocytes # (Manual) Monocytes # (Manual) PT INR D-Dimer 2655.00 H ABG pH ABG pO2 ABG HCO3 ABG O2 Saturation ABG Base Excess ABG Hemoglobin Oxyhemoglobin Sodium Potassium Chloride Carbon Dioxide BUN Creatinine Glucose POC Glucose 154 H Lactic Acid Calcium Phosphorus Magnesium AST ALT Alkaline Phosphatase Lactate Dehydrogenase Troponin T C-Reactive Protein NT-Pro-B Natriuret Pep Total Protein Albumin LDL Cholesterol Direct Vitamin B12 Crossmatch 11/11/21 11/11/21 11/12/21 12:38 18:13 00:14 WBC RBC Hgb Hct MCV MCH MCHC RDW Plt Count Seg Neuts % (Manual) Lymphocytes % (Manual) Seg Neutrophils # Man Lymphocytes # (Manual) Monocytes # (Manual) PT INR D-Dimer ABG pH ABG pO2 ABG HCO3 ABG O2 Saturation ABG Base Excess ABG Hemoglobin Oxyhemoglobin Sodium Potassium Chloride Carbon Dioxide BUN Creatinine Glucose POC Glucose 137 H 108 H 137 H Lactic Acid Calcium Phosphorus Magnesium AST ALT Alkaline Phosphatase Lactate Dehydrogenase Troponin T C-Reactive Protein NT-Pro-B Natriuret Pep Total Protein Albumin LDL Cholesterol Direct Vitamin B12 Crossmatch 11/12/21 11/12/21 11/12/21 05:40 06:24 11:12 WBC RBC Hgb Hct MCV MCH MCHC RDW Plt Count Seg Neuts % (Manual) Lymphocytes % (Manual) Seg Neutrophils # Man Lymphocytes # (Manual) Monocytes # (Manual) PT INR D-Dimer ABG pH 7.586 H ABG pO2 150.6 H ABG HCO3 27.2 H ABG O2 Saturation 99.1 H ABG Base Excess 5.2 H ABG Hemoglobin 7.5 L Oxyhemoglobin Sodium Potassium Chloride Carbon Dioxide BUN Creatinine Glucose POC Glucose 132 H 140 H Lactic Acid Calcium Phosphorus Magnesium AST ALT Alkaline Phosphatase Lactate Dehydrogenase Troponin T C-Reactive Protein NT-Pro-B Natriuret Pep Total Protein Albumin LDL Cholesterol Direct Vitamin B12 Crossmatch 11/12/21 11/12/21 11/12/21 14:50 14:50 17:13 WBC 19.8 H RBC 3.27 L Hgb 7.1 L Hct 24.5 L MCV 75 L MCH 22 L MCHC 29 L RDW 22.3 H Plt Count Seg Neuts % (Manual) Lymphocytes % (Manual) Seg Neutrophils # Man Lymphocytes # (Manual) Monocytes # (Manual) PT INR D-Dimer ABG pH ABG pO2 ABG HCO3 ABG O2 Saturation ABG Base Excess ABG Hemoglobin Oxyhemoglobin Sodium 150 H Potassium 3.3 L Chloride 112.0 H Carbon Dioxide BUN 40 H Creatinine Glucose 151 H POC Glucose 121 H Lactic Acid Calcium 7.4 L Phosphorus 1.70 L Magnesium 1.40 L AST ALT Alkaline Phosphatase Lactate Dehydrogenase Troponin T C-Reactive Protein NT-Pro-B Natriuret Pep Total Protein Albumin LDL Cholesterol Direct Vitamin B12 Crossmatch 11/12/21 11/13/21 11/13/21 23:19 05:34 06:30 WBC RBC Hgb Hct MCV MCH MCHC RDW Plt Count Seg Neuts % (Manual) Lymphocytes % (Manual) Seg Neutrophils # Man Lymphocytes # (Manual) Monocytes # (Manual) PT INR D-Dimer ABG pH ABG pO2 ABG HCO3 ABG O2 Saturation ABG Base Excess ABG Hemoglobin Oxyhemoglobin Sodium 149 H Potassium Chloride 60.0 L Carbon Dioxide BUN 40 H Creatinine Glucose 146 H POC Glucose 113 H 132 H Lactic Acid Calcium 7.3 L Phosphorus Magnesium 2.40 H AST ALT 72 H Alkaline Phosphatase Lactate Dehydrogenase Troponin T C-Reactive Protein NT-Pro-B Natriuret Pep Total Protein 5.2 L Albumin 2.2 L LDL Cholesterol Direct Vitamin B12 Crossmatch 11/13/21 11/13/21 11/13/21 06:30 08:30 11:19 WBC 21.2 H RBC 3.12 L Hgb 6.8 L Hct 23.2 L MCV 74 L MCH 22 L MCHC 29 L RDW 22.2 H Plt Count 135 L Seg Neuts % (Manual) Lymphocytes % (Manual) Seg Neutrophils # Man Lymphocytes # (Manual) Monocytes # (Manual) PT INR D-Dimer ABG pH ABG pO2 ABG HCO3 ABG O2 Saturation ABG Base Excess ABG Hemoglobin Oxyhemoglobin Sodium Potassium Chloride Carbon Dioxide BUN Creatinine Glucose POC Glucose 136 H Lactic Acid Calcium Phosphorus Magnesium AST ALT Alkaline Phosphatase Lactate Dehydrogenase Troponin T C-Reactive Protein NT-Pro-B Natriuret Pep Total Protein Albumin LDL Cholesterol Direct Vitamin B12 Crossmatch See Detail 11/13/21 11/14/21 11/14/21 18:21 00:01 04:46 WBC 20.0 H RBC 3.41 L Hgb 7.9 L Hct 26.8 L MCV MCH 23 L MCHC 29 L RDW 24.0 H Plt Count Seg Neuts % (Manual) Lymphocytes % (Manual) Seg Neutrophils # Man Lymphocytes # (Manual) Monocytes # (Manual) PT INR D-Dimer ABG pH ABG pO2 ABG HCO3 ABG O2 Saturation ABG Base Excess ABG Hemoglobin Oxyhemoglobin Sodium Potassium Chloride Carbon Dioxide BUN Creatinine Glucose POC Glucose 149 H 141 H Lactic Acid Calcium Phosphorus Magnesium AST ALT Alkaline Phosphatase Lactate Dehydrogenase Troponin T C-Reactive Protein NT-Pro-B Natriuret Pep Total Protein Albumin LDL Cholesterol Direct Vitamin B12 Crossmatch 11/14/21 11/14/21 11/14/21 04:46 05:10 11:10 WBC RBC Hgb Hct MCV MCH MCHC RDW Plt Count Seg Neuts % (Manual) Lymphocytes % (Manual) Seg Neutrophils # Man Lymphocytes # (Manual) Monocytes # (Manual) PT INR D-Dimer ABG pH ABG pO2 ABG HCO3 ABG O2 Saturation ABG Base Excess ABG Hemoglobin Oxyhemoglobin Sodium 148 H Potassium Chloride 113.1 H Carbon Dioxide BUN 43 H Creatinine Glucose 140 H POC Glucose 132 H 133 H Lactic Acid Calcium 7.5 L Phosphorus Magnesium AST ALT Alkaline Phosphatase Lactate Dehydrogenase Troponin T C-Reactive Protein NT-Pro-B Natriuret Pep Total Protein Albumin LDL Cholesterol Direct Vitamin B12 Crossmatch 11/14/21 11/14/21 11/14/21 16:14 17:48 23:23 WBC RBC Hgb Hct MCV MCH MCHC RDW Plt Count Seg Neuts % (Manual) Lymphocytes % (Manual) Seg Neutrophils # Man Lymphocytes # (Manual) Monocytes # (Manual) PT INR D-Dimer ABG pH ABG pO2 ABG HCO3 28.0 H ABG O2 Saturation ABG Base Excess 3.1 H ABG Hemoglobin 5.8 L Oxyhemoglobin 94.8 L Sodium Potassium Chloride Carbon Dioxide BUN Creatinine Glucose POC Glucose 130 H 136 H Lactic Acid Calcium Phosphorus Magnesium AST ALT Alkaline Phosphatase Lactate Dehydrogenase Troponin T C-Reactive Protein NT-Pro-B Natriuret Pep Total Protein Albumin LDL Cholesterol Direct Vitamin B12 Crossmatch 11/15/21 11/15/21 11/15/21 05:20 05:50 05:50 WBC 19.9 H RBC 3.50 L Hgb 8.2 L Hct 27.9 L MCV MCH 23 L MCHC 29 L RDW 24.9 H Plt Count Seg Neuts % (Manual) Lymphocytes % (Manual) Seg Neutrophils # Man Lymphocytes # (Manual) Monocytes # (Manual) PT INR D-Dimer ABG pH ABG pO2 ABG HCO3 ABG O2 Saturation ABG Base Excess ABG Hemoglobin Oxyhemoglobin Sodium 149 H Potassium Chloride 112.0 H Carbon Dioxide BUN 48 H Creatinine Glucose 152 H POC Glucose 137 H Lactic Acid Calcium 7.9 L Phosphorus Magnesium AST ALT Alkaline Phosphatase Lactate Dehydrogenase Troponin T C-Reactive Protein NT-Pro-B Natriuret Pep Total Protein Albumin LDL Cholesterol Direct Vitamin B12 Crossmatch 11/15/21 11/15/21 11/15/21 12:12 17:07 23:24 WBC RBC Hgb Hct MCV MCH MCHC RDW Plt Count Seg Neuts % (Manual) Lymphocytes % (Manual) Seg Neutrophils # Man Lymphocytes # (Manual) Monocytes # (Manual) PT INR D-Dimer ABG pH ABG pO2 ABG HCO3 ABG O2 Saturation ABG Base Excess ABG Hemoglobin Oxyhemoglobin Sodium Potassium Chloride Carbon Dioxide BUN Creatinine Glucose POC Glucose 114 H 135 H 123 H Lactic Acid Calcium Phosphorus Magnesium AST ALT Alkaline Phosphatase Lactate Dehydrogenase Troponin T C-Reactive Protein NT-Pro-B Natriuret Pep Total Protein Albumin LDL Cholesterol Direct Vitamin B12 Crossmatch 11/16/21 11/16/21 11/16/21 05:21 10:00 10:00 WBC 21.7 H RBC 2.57 L Hgb 6.0 L Hct 20.2 L D MCV MCH 24 L MCHC RDW 26.3 H Plt Count Seg Neuts % (Manual) Lymphocytes % (Manual) Seg Neutrophils # Man Lymphocytes # (Manual) Monocytes # (Manual) PT INR D-Dimer ABG pH ABG pO2 ABG HCO3 ABG O2 Saturation ABG Base Excess ABG Hemoglobin Oxyhemoglobin Sodium 153 H Potassium Chloride 114.9 H Carbon Dioxide BUN 74 H Creatinine Glucose 155 H POC Glucose 127 H Lactic Acid Calcium 8.1 L Phosphorus Magnesium AST ALT Alkaline Phosphatase Lactate Dehydrogenase Troponin T C-Reactive Protein NT-Pro-B Natriuret Pep Total Protein Albumin LDL Cholesterol Direct Vitamin B12 Crossmatch 11/16/21 11/16/21 11/16/21 11:34 14:00 15:25 WBC 17.2 H RBC 2.08 L Hgb 4.7 L* Hct 16.2 L* MCV 78 L MCH 23 L MCHC 29 L RDW 26.0 H Plt Count Seg Neuts % (Manual) 87.0 H Lymphocytes % (Manual) 8.0 L Seg Neutrophils # Man 15.0 H Lymphocytes # (Manual) Monocytes # (Manual) 0.9 H PT INR D-Dimer ABG pH ABG pO2 ABG HCO3 ABG O2 Saturation ABG Base Excess ABG Hemoglobin Oxyhemoglobin Sodium Potassium Chloride Carbon Dioxide BUN Creatinine Glucose POC Glucose 131 H Lactic Acid Calcium Phosphorus Magnesium AST ALT Alkaline Phosphatase Lactate Dehydrogenase Troponin T C-Reactive Protein NT-Pro-B Natriuret Pep Total Protein Albumin LDL Cholesterol Direct Vitamin B12 Crossmatch See Detail 11/16/21 11/16/21 11/16/21 15:25 17:21 22:43 WBC RBC Hgb 8.6 L D Hct 27.7 L D MCV MCH MCHC RDW Plt Count Seg Neuts % (Manual) Lymphocytes % (Manual) Seg Neutrophils # Man Lymphocytes # (Manual) Monocytes # (Manual) PT INR D-Dimer ABG pH ABG pO2 ABG HCO3 ABG O2 Saturation ABG Base Excess ABG Hemoglobin Oxyhemoglobin Sodium 148 H Potassium Chloride 113.2 H Carbon Dioxide BUN 84 H Creatinine Glucose 164 H POC Glucose 124 H Lactic Acid Calcium 7.6 L Phosphorus Magnesium AST ALT Alkaline Phosphatase Lactate Dehydrogenase Troponin T C-Reactive Protein NT-Pro-B Natriuret Pep Total Protein Albumin LDL Cholesterol Direct Vitamin B12 Crossmatch 11/16/21 11/17/21 11/17/21 23:07 05:33 05:56 WBC 25.1 H RBC 3.47 L Hgb 8.7 L Hct 28.5 L MCV MCH 25 L MCHC RDW 22.3 H Plt Count Seg Neuts % (Manual) Lymphocytes % (Manual) Seg Neutrophils # Man Lymphocytes # (Manual) Monocytes # (Manual) PT INR D-Dimer ABG pH ABG pO2 ABG HCO3 ABG O2 Saturation ABG Base Excess ABG Hemoglobin Oxyhemoglobin Sodium Potassium Chloride Carbon Dioxide BUN Creatinine Glucose POC Glucose 128 H 133 H Lactic Acid Calcium Phosphorus Magnesium AST ALT Alkaline Phosphatase Lactate Dehydrogenase Troponin T C-Reactive Protein NT-Pro-B Natriuret Pep Total Protein Albumin LDL Cholesterol Direct Vitamin B12 Crossmatch 11/17/21 11/17/21 11/17/21 05:56 11:00 11:55 WBC RBC Hgb 8.3 L Hct 26.9 L MCV MCH MCHC RDW Plt Count Seg Neuts % (Manual) Lymphocytes % (Manual) Seg Neutrophils # Man Lymphocytes # (Manual) Monocytes # (Manual) PT INR D-Dimer ABG pH ABG pO2 ABG HCO3 ABG O2 Saturation ABG Base Excess ABG Hemoglobin Oxyhemoglobin Sodium 151 H Potassium Chloride 113.6 H Carbon Dioxide BUN 85 H Creatinine Glucose 132 H POC Glucose 121 H Lactic Acid Calcium 7.8 L Phosphorus Magnesium AST ALT Alkaline Phosphatase Lactate Dehydrogenase Troponin T C-Reactive Protein NT-Pro-B Natriuret Pep Total Protein 5.1 L Albumin 2.2 L LDL Cholesterol Direct Vitamin B12 Crossmatch 11/17/21 11/17/21 11/18/21 18:04 18:55 00:26 WBC RBC Hgb 7.5 L 7.1 L Hct 24.8 L 23.6 L MCV MCH MCHC RDW Plt Count Seg Neuts % (Manual) Lymphocytes % (Manual) Seg Neutrophils # Man Lymphocytes # (Manual) Monocytes # (Manual) PT INR D-Dimer ABG pH ABG pO2 ABG HCO3 ABG O2 Saturation ABG Base Excess ABG Hemoglobin Oxyhemoglobin Sodium Potassium Chloride Carbon Dioxide BUN Creatinine Glucose POC Glucose 144 H Lactic Acid Calcium Phosphorus Magnesium AST ALT Alkaline Phosphatase Lactate Dehydrogenase Troponin T C-Reactive Protein NT-Pro-B Natriuret Pep Total Protein Albumin LDL Cholesterol Direct Vitamin B12 Crossmatch 11/18/21 11/18/21 11/18/21 00:43 05:10 05:10 WBC 12.5 H RBC 2.39 L Hgb 6.1 L Hct 20.2 L MCV MCH 25 L MCHC RDW 23.2 H Plt Count Seg Neuts % (Manual) Lymphocytes % (Manual) Seg Neutrophils # Man Lymphocytes # (Manual) Monocytes # (Manual) PT INR D-Dimer ABG pH ABG pO2 ABG HCO3 ABG O2 Saturation ABG Base Excess ABG Hemoglobin Oxyhemoglobin Sodium 131 L D Potassium 2.9 L* D Chloride 97.8 L Carbon Dioxide BUN 58 H Creatinine Glucose 665 H* POC Glucose 139 H Lactic Acid Calcium 7.0 L Phosphorus 2.20 L D Magnesium 1.50 L AST ALT Alkaline Phosphatase Lactate Dehydrogenase Troponin T C-Reactive Protein NT-Pro-B Natriuret Pep Total Protein Albumin LDL Cholesterol Direct Vitamin B12 Crossmatch 11/18/21 11/18/21 11/18/21 05:23 07:10 10:45 WBC RBC Hgb Hct MCV MCH MCHC RDW Plt Count Seg Neuts % (Manual) Lymphocytes % (Manual) Seg Neutrophils # Man Lymphocytes # (Manual) Monocytes # (Manual) PT INR D-Dimer ABG pH ABG pO2 ABG HCO3 ABG O2 Saturation ABG Base Excess ABG Hemoglobin Oxyhemoglobin Sodium 148 H D Potassium 3.1 L Chloride 111.9 H Carbon Dioxide BUN 63 H Creatinine Glucose 141 H POC Glucose 124 H Lactic Acid Calcium 8.1 L D Phosphorus Magnesium AST ALT Alkaline Phosphatase Lactate Dehydrogenase Troponin T C-Reactive Protein NT-Pro-B Natriuret Pep Total Protein Albumin LDL Cholesterol Direct Vitamin B12 Crossmatch See Detail 11/18/21 11/19/21 11/19/21 11:57 00:19 04:55 WBC RBC 3.35 L Hgb 9.0 L 8.9 L Hct 28.3 L D 28.1 L MCV MCH 27 L MCHC RDW 20.3 H Plt Count Seg Neuts % (Manual) Lymphocytes % (Manual) Seg Neutrophils # Man Lymphocytes # (Manual) Monocytes # (Manual) PT INR D-Dimer ABG pH ABG pO2 ABG HCO3 ABG O2 Saturation ABG Base Excess ABG Hemoglobin Oxyhemoglobin Sodium Potassium Chloride Carbon Dioxide BUN Creatinine Glucose POC Glucose 119 H Lactic Acid Calcium Phosphorus Magnesium AST ALT Alkaline Phosphatase Lactate Dehydrogenase Troponin T C-Reactive Protein NT-Pro-B Natriuret Pep Total Protein Albumin LDL Cholesterol Direct Vitamin B12 Crossmatch 11/19/21 11/19/21 11/20/21 04:55 05:42 00:55 WBC RBC Hgb 9.0 L Hct 28.6 L MCV MCH MCHC RDW Plt Count Seg Neuts % (Manual) Lymphocytes % (Manual) Seg Neutrophils # Man Lymphocytes # (Manual) Monocytes # (Manual) PT INR D-Dimer ABG pH ABG pO2 ABG HCO3 ABG O2 Saturation ABG Base Excess ABG Hemoglobin Oxyhemoglobin Sodium Potassium 3.5 L Chloride 108.6 H Carbon Dioxide BUN 47 H Creatinine Glucose 207 H POC Glucose 63 L Lactic Acid Calcium 7.1 L Phosphorus Magnesium AST ALT Alkaline Phosphatase Lactate Dehydrogenase Troponin T C-Reactive Protein NT-Pro-B Natriuret Pep Total Protein Albumin LDL Cholesterol Direct Vitamin B12 Crossmatch 11/20/21 11/20/21 11/20/21 05:40 05:40 Unknown WBC RBC 3.40 L Hgb 9.1 L Hct 28.8 L MCV MCH 27 L MCHC RDW 20.7 H Plt Count Seg Neuts % (Manual) Lymphocytes % (Manual) Seg Neutrophils # Man Lymphocytes # (Manual) Monocytes # (Manual) PT INR D-Dimer ABG pH ABG pO2 ABG HCO3 ABG O2 Saturation ABG Base Excess -2.7 L ABG Hemoglobin 9.5 L Oxyhemoglobin 94.3 L Sodium Potassium 3.5 L Chloride 108.9 H Carbon Dioxide BUN 37 H Creatinine Glucose 117 H POC Glucose Lactic Acid Calcium 7.5 L Phosphorus Magnesium AST ALT Alkaline Phosphatase Lactate Dehydrogenase Troponin T C-Reactive Protein NT-Pro-B Natriuret Pep Total Protein Albumin LDL Cholesterol Direct Vitamin B12 Crossmatch 11/21/21 11/21/21 11/21/21 04:30 04:30 16:00 WBC RBC 3.25 L Hgb 8.6 L Hct 28.1 L MCV MCH 26 L MCHC RDW 20.7 H Plt Count Seg Neuts % (Manual) Lymphocytes % (Manual) Seg Neutrophils # Man Lymphocytes # (Manual) Monocytes # (Manual) PT INR D-Dimer ABG pH ABG pO2 114.2 H ABG HCO3 ABG O2 Saturation ABG Base Excess ABG Hemoglobin 9.1 L Oxyhemoglobin Sodium 134 L Potassium Chloride Carbon Dioxide 20 L BUN 34 H Creatinine Glucose POC Glucose Lactic Acid Calcium 7.1 L Phosphorus Magnesium AST ALT Alkaline Phosphatase Lactate Dehydrogenase Troponin T C-Reactive Protein NT-Pro-B Natriuret Pep Total Protein Albumin LDL Cholesterol Direct Vitamin B12 Crossmatch 11/22/21 11/22/21 11/22/21 07:07 07:07 23:54 WBC RBC 3.30 L Hgb 9.0 L Hct 28.5 L MCV MCH 27 L MCHC RDW 21.0 H Plt Count Seg Neuts % (Manual) Lymphocytes % (Manual) Seg Neutrophils # Man Lymphocytes # (Manual) Monocytes # (Manual) PT INR D-Dimer ABG pH ABG pO2 ABG HCO3 ABG O2 Saturation ABG Base Excess ABG Hemoglobin Oxyhemoglobin Sodium Potassium Chloride Carbon Dioxide BUN 32 H Creatinine Glucose 106 H POC Glucose 110 H Lactic Acid Calcium 7.5 L Phosphorus Magnesium AST ALT Alkaline Phosphatase Lactate Dehydrogenase Troponin T C-Reactive Protein NT-Pro-B Natriuret Pep Total Protein Albumin LDL Cholesterol Direct Vitamin B12 Crossmatch 11/23/21 11/23/21 11/23/21 04:38 04:38 06:01 WBC RBC 3.23 L Hgb 8.8 L Hct 28.0 L MCV MCH 27 L MCHC RDW 21.3 H Plt Count Seg Neuts % (Manual) Lymphocytes % (Manual) Seg Neutrophils # Man Lymphocytes # (Manual) Monocytes # (Manual) PT INR D-Dimer ABG pH ABG pO2 ABG HCO3 ABG O2 Saturation ABG Base Excess ABG Hemoglobin Oxyhemoglobin Sodium 136 L Potassium Chloride Carbon Dioxide 20 L BUN 32 H Creatinine Glucose 109 H POC Glucose 115 H Lactic Acid Calcium 7.7 L Phosphorus Magnesium AST ALT Alkaline Phosphatase Lactate Dehydrogenase Troponin T C-Reactive Protein NT-Pro-B Natriuret Pep Total Protein Albumin LDL Cholesterol Direct Vitamin B12 Crossmatch 11/23/21 11/24/21 11/24/21 11:40 00:03 04:13 WBC RBC 3.18 L Hgb 8.5 L Hct 27.5 L MCV MCH 27 L MCHC RDW 21.6 H Plt Count Seg Neuts % (Manual) Lymphocytes % (Manual) Seg Neutrophils # Man Lymphocytes # (Manual) Monocytes # (Manual) PT INR D-Dimer ABG pH ABG pO2 ABG HCO3 ABG O2 Saturation ABG Base Excess ABG Hemoglobin Oxyhemoglobin Sodium Potassium Chloride Carbon Dioxide BUN Creatinine Glucose POC Glucose 117 H 111 H Lactic Acid Calcium Phosphorus Magnesium AST ALT Alkaline Phosphatase Lactate Dehydrogenase Troponin T C-Reactive Protein NT-Pro-B Natriuret Pep Total Protein Albumin LDL Cholesterol Direct Vitamin B12 Crossmatch 11/24/21 11/24/21 11/24/21 04:13 05:30 11:10 WBC RBC Hgb Hct MCV MCH MCHC RDW Plt Count Seg Neuts % (Manual) Lymphocytes % (Manual) Seg Neutrophils # Man Lymphocytes # (Manual) Monocytes # (Manual) PT INR D-Dimer ABG pH ABG pO2 ABG HCO3 ABG O2 Saturation ABG Base Excess ABG Hemoglobin Oxyhemoglobin Sodium Potassium Chloride Carbon Dioxide BUN 31 H Creatinine Glucose 101 H POC Glucose 115 H 107 H Lactic Acid Calcium 7.7 L Phosphorus Magnesium AST ALT Alkaline Phosphatase Lactate Dehydrogenase Troponin T C-Reactive Protein NT-Pro-B Natriuret Pep Total Protein Albumin LDL Cholesterol Direct Vitamin B12 Crossmatch 11/24/21 11/24/21 11/25/21 16:34 17:57 05:12 WBC RBC 3.11 L Hgb 8.2 L Hct 26.6 L MCV MCH 26 L MCHC RDW 21.3 H Plt Count Seg Neuts % (Manual) Lymphocytes % (Manual) Seg Neutrophils # Man Lymphocytes # (Manual) Monocytes # (Manual) PT INR D-Dimer ABG pH ABG pO2 ABG HCO3 ABG O2 Saturation ABG Base Excess ABG Hemoglobin Oxyhemoglobin Sodium Potassium Chloride Carbon Dioxide BUN Creatinine Glucose POC Glucose 115 H 110 H Lactic Acid Calcium Phosphorus Magnesium AST ALT Alkaline Phosphatase Lactate Dehydrogenase Troponin T C-Reactive Protein NT-Pro-B Natriuret Pep Total Protein Albumin LDL Cholesterol Direct Vitamin B12 Crossmatch 11/25/21 11/25/21 11/26/21 05:12 11:20 05:00 WBC RBC 3.30 L Hgb 8.8 L Hct 28.2 L MCV MCH 27 L MCHC RDW 20.7 H Plt Count Seg Neuts % (Manual) Lymphocytes % (Manual) Seg Neutrophils # Man Lymphocytes # (Manual) Monocytes # (Manual) PT INR D-Dimer ABG pH ABG pO2 ABG HCO3 ABG O2 Saturation ABG Base Excess ABG Hemoglobin Oxyhemoglobin Sodium Potassium Chloride Carbon Dioxide BUN 32 H Creatinine Glucose 118 H POC Glucose 118 H Lactic Acid Calcium 8.2 L Phosphorus Magnesium AST ALT Alkaline Phosphatase Lactate Dehydrogenase Troponin T C-Reactive Protein NT-Pro-B Natriuret Pep Total Protein Albumin LDL Cholesterol Direct Vitamin B12 Crossmatch 11/26/21 11/26/21 11/26/21 05:00 05:00 05:44 WBC RBC Hgb Hct MCV MCH MCHC RDW Plt Count Seg Neuts % (Manual) Lymphocytes % (Manual) Seg Neutrophils # Man Lymphocytes # (Manual) Monocytes # (Manual) PT 16.9 H INR 1.24 H D-Dimer ABG pH ABG pO2 ABG HCO3 ABG O2 Saturation ABG Base Excess ABG Hemoglobin Oxyhemoglobin Sodium Potassium Chloride Carbon Dioxide BUN 31 H Creatinine Glucose 104 H POC Glucose 110 H Lactic Acid Calcium 7.9 L Phosphorus Magnesium AST ALT Alkaline Phosphatase Lactate Dehydrogenase Troponin T C-Reactive Protein NT-Pro-B Natriuret Pep Total Protein Albumin LDL Cholesterol Direct Vitamin B12 Crossmatch 11/26/21 11/27/21 11/27/21 23:55 07:40 07:40 WBC RBC 3.18 L Hgb 8.5 L Hct 27.0 L MCV MCH 27 L MCHC RDW 21.2 H Plt Count Seg Neuts % (Manual) Lymphocytes % (Manual) Seg Neutrophils # Man Lymphocytes # (Manual) Monocytes # (Manual) PT INR D-Dimer ABG pH ABG pO2 ABG HCO3 ABG O2 Saturation ABG Base Excess ABG Hemoglobin Oxyhemoglobin Sodium Potassium Chloride Carbon Dioxide BUN 27 H Creatinine Glucose 112 H POC Glucose 63 L Lactic Acid Calcium 7.6 L Phosphorus Magnesium AST ALT Alkaline Phosphatase Lactate Dehydrogenase Troponin T C-Reactive Protein NT-Pro-B Natriuret Pep Total Protein Albumin LDL Cholesterol Direct Vitamin B12 Crossmatch 11/27/21 11/27/21 11/27/21 12:04 13:40 13:40 WBC RBC 3.31 L Hgb 8.7 L Hct 28.0 L MCV MCH 26 L MCHC RDW 20.7 H Plt Count Seg Neuts % (Manual) Lymphocytes % (Manual) Seg Neutrophils # Man Lymphocytes # (Manual) Monocytes # (Manual) PT INR D-Dimer ABG pH ABG pO2 ABG HCO3 ABG O2 Saturation ABG Base Excess ABG Hemoglobin Oxyhemoglobin Sodium 136 L Potassium Chloride Carbon Dioxide BUN 25 H Creatinine Glucose 127 H POC Glucose 109 H Lactic Acid Calcium 7.6 L Phosphorus Magnesium 1.40 L AST ALT Alkaline Phosphatase Lactate Dehydrogenase Troponin T C-Reactive Protein NT-Pro-B Natriuret Pep Total Protein Albumin LDL Cholesterol Direct Vitamin B12 Crossmatch 11/27/21 11/27/21 11/28/21 17:44 23:33 12:20 WBC RBC Hgb Hct MCV MCH MCHC RDW Plt Count Seg Neuts % (Manual) Lymphocytes % (Manual) Seg Neutrophils # Man Lymphocytes # (Manual) Monocytes # (Manual) PT INR D-Dimer ABG pH ABG pO2 ABG HCO3 ABG O2 Saturation ABG Base Excess ABG Hemoglobin Oxyhemoglobin Sodium Potassium Chloride Carbon Dioxide BUN Creatinine Glucose POC Glucose 107 H 108 H 114 H Lactic Acid Calcium Phosphorus Magnesium AST ALT Alkaline Phosphatase Lactate Dehydrogenase Troponin T C-Reactive Protein NT-Pro-B Natriuret Pep Total Protein Albumin LDL Cholesterol Direct Vitamin B12 Crossmatch 11/29/21 11/29/21 11/29/21 00:09 03:20 03:20 WBC RBC 3.05 L Hgb 8.2 L Hct 25.8 L MCV MCH 27 L MCHC RDW 20.9 H Plt Count Seg Neuts % (Manual) Lymphocytes % (Manual) Seg Neutrophils # Man Lymphocytes # (Manual) Monocytes # (Manual) PT INR D-Dimer ABG pH ABG pO2 ABG HCO3 ABG O2 Saturation ABG Base Excess ABG Hemoglobin Oxyhemoglobin Sodium 133 L Potassium Chloride Carbon Dioxide BUN 24 H Creatinine Glucose 137 H POC Glucose 134 H Lactic Acid Calcium 7.4 L Phosphorus Magnesium AST ALT Alkaline Phosphatase Lactate Dehydrogenase Troponin T C-Reactive Protein NT-Pro-B Natriuret Pep Total Protein Albumin LDL Cholesterol Direct Vitamin B12 Crossmatch 11/29/21 11/29/21 11/29/21 05:38 11:39 17:11 WBC RBC Hgb Hct MCV MCH MCHC RDW Plt Count Seg Neuts % (Manual) Lymphocytes % (Manual) Seg Neutrophils # Man Lymphocytes # (Manual) Monocytes # (Manual) PT INR D-Dimer ABG pH ABG pO2 ABG HCO3 ABG O2 Saturation ABG Base Excess ABG Hemoglobin Oxyhemoglobin Sodium Potassium Chloride Carbon Dioxide BUN Creatinine Glucose POC Glucose 117 H 143 H 124 H Lactic Acid Calcium Phosphorus Magnesium AST ALT Alkaline Phosphatase Lactate Dehydrogenase Troponin T C-Reactive Protein NT-Pro-B Natriuret Pep Total Protein Albumin LDL Cholesterol Direct Vitamin B12 Crossmatch 11/29/21 11/30/21 11/30/21 20:15 05:40 05:40 WBC 12.6 H RBC 3.41 L Hgb 9.1 L Hct 28.9 L MCV MCH 27 L MCHC RDW 20.4 H Plt Count Seg Neuts % (Manual) Lymphocytes % (Manual) Seg Neutrophils # Man Lymphocytes # (Manual) Monocytes # (Manual) PT INR D-Dimer ABG pH ABG pO2 ABG HCO3 ABG O2 Saturation ABG Base Excess ABG Hemoglobin Oxyhemoglobin Sodium Potassium Chloride Carbon Dioxide BUN 24 H Creatinine Glucose 131 H POC Glucose Lactic Acid Calcium 7.6 L Phosphorus Magnesium AST ALT Alkaline Phosphatase Lactate Dehydrogenase Troponin T 0.045 H C-Reactive Protein NT-Pro-B Natriuret Pep Total Protein Albumin LDL Cholesterol Direct 25 L Vitamin B12 Crossmatch 11/30/21 11/30/21 12/01/21 11:29 16:51 05:00 WBC RBC 2.97 L Hgb 8.0 L Hct 25.0 L MCV MCH 27 L MCHC RDW 20.8 H Plt Count Seg Neuts % (Manual) Lymphocytes % (Manual) Seg Neutrophils # Man Lymphocytes # (Manual) Monocytes # (Manual) PT INR D-Dimer ABG pH ABG pO2 ABG HCO3 ABG O2 Saturation ABG Base Excess ABG Hemoglobin Oxyhemoglobin Sodium Potassium Chloride Carbon Dioxide BUN Creatinine Glucose POC Glucose 123 H 114 H Lactic Acid Calcium Phosphorus Magnesium AST ALT Alkaline Phosphatase Lactate Dehydrogenase Troponin T C-Reactive Protein NT-Pro-B Natriuret Pep Total Protein Albumin LDL Cholesterol Direct Vitamin B12 Crossmatch 12/01/21 12/01/21 12/01/21 05:00 05:25 11:54 WBC RBC Hgb Hct MCV MCH MCHC RDW Plt Count Seg Neuts % (Manual) Lymphocytes % (Manual) Seg Neutrophils # Man Lymphocytes # (Manual) Monocytes # (Manual) PT INR D-Dimer ABG pH ABG pO2 ABG HCO3 ABG O2 Saturation ABG Base Excess ABG Hemoglobin Oxyhemoglobin Sodium 136 L Potassium Chloride Carbon Dioxide BUN 24 H Creatinine Glucose 117 H POC Glucose 108 H 107 H Lactic Acid Calcium 7.5 L Phosphorus Magnesium 1.60 L AST ALT Alkaline Phosphatase Lactate Dehydrogenase Troponin T C-Reactive Protein NT-Pro-B Natriuret Pep Total Protein Albumin LDL Cholesterol Direct Vitamin B12 Crossmatch 12/01/21 12/02/21 12/02/21 17:40 00:07 04:20 WBC RBC 2.92 L Hgb 7.7 L Hct 24.3 L MCV MCH 26 L MCHC RDW 20.5 H Plt Count Seg Neuts % (Manual) Lymphocytes % (Manual) Seg Neutrophils # Man Lymphocytes # (Manual) Monocytes # (Manual) PT INR D-Dimer ABG pH ABG pO2 ABG HCO3 ABG O2 Saturation ABG Base Excess ABG Hemoglobin Oxyhemoglobin Sodium Potassium Chloride Carbon Dioxide BUN Creatinine Glucose POC Glucose 123 H 110 H Lactic Acid Calcium Phosphorus Magnesium AST ALT Alkaline Phosphatase Lactate Dehydrogenase Troponin T C-Reactive Protein NT-Pro-B Natriuret Pep Total Protein Albumin LDL Cholesterol Direct Vitamin B12 Crossmatch 12/02/21 12/02/21 12/02/21 04:20 11:17 18:20 WBC RBC Hgb Hct MCV MCH MCHC RDW Plt Count Seg Neuts % (Manual) Lymphocytes % (Manual) Seg Neutrophils # Man Lymphocytes # (Manual) Monocytes # (Manual) PT INR D-Dimer ABG pH ABG pO2 ABG HCO3 ABG O2 Saturation ABG Base Excess ABG Hemoglobin Oxyhemoglobin Sodium 135 L Potassium Chloride Carbon Dioxide BUN 26 H Creatinine Glucose 121 H POC Glucose 117 H 113 H Lactic Acid Calcium 7.4 L Phosphorus Magnesium AST ALT Alkaline Phosphatase Lactate Dehydrogenase Troponin T C-Reactive Protein NT-Pro-B Natriuret Pep Total Protein Albumin LDL Cholesterol Direct Vitamin B12 Crossmatch 12/03/21 12/03/21 12/03/21 00:12 04:00 04:00 WBC RBC 2.99 L Hgb 7.8 L Hct 24.6 L MCV MCH 26 L MCHC RDW 20.2 H Plt Count Seg Neuts % (Manual) Lymphocytes % (Manual) Seg Neutrophils # Man Lymphocytes # (Manual) Monocytes # (Manual) PT INR D-Dimer ABG pH ABG pO2 ABG HCO3 ABG O2 Saturation ABG Base Excess ABG Hemoglobin Oxyhemoglobin Sodium 136 L Potassium Chloride Carbon Dioxide BUN 27 H Creatinine Glucose 133 H POC Glucose 121 H Lactic Acid Calcium 7.5 L Phosphorus Magnesium AST ALT Alkaline Phosphatase Lactate Dehydrogenase Troponin T C-Reactive Protein NT-Pro-B Natriuret Pep Total Protein Albumin LDL Cholesterol Direct Vitamin B12 Crossmatch 12/03/21 12/03/21 12/03/21 06:30 11:13 16:00 WBC RBC Hgb Hct MCV MCH MCHC RDW Plt Count Seg Neuts % (Manual) Lymphocytes % (Manual) Seg Neutrophils # Man Lymphocytes # (Manual) Monocytes # (Manual) PT INR D-Dimer ABG pH ABG pO2 ABG HCO3 ABG O2 Saturation ABG Base Excess ABG Hemoglobin Oxyhemoglobin Sodium Potassium Chloride Carbon Dioxide BUN Creatinine Glucose POC Glucose 129 H 125 H 125 H Lactic Acid Calcium Phosphorus Magnesium AST ALT Alkaline Phosphatase Lactate Dehydrogenase Troponin T C-Reactive Protein NT-Pro-B Natriuret Pep Total Protein Albumin LDL Cholesterol Direct Vitamin B12 Crossmatch 12/03/21 12/04/21 12/04/21 23:32 04:00 05:36 WBC RBC Hgb Hct MCV MCH MCHC RDW Plt Count Seg Neuts % (Manual) Lymphocytes % (Manual) Seg Neutrophils # Man Lymphocytes # (Manual) Monocytes # (Manual) PT INR D-Dimer ABG pH ABG pO2 ABG HCO3 ABG O2 Saturation ABG Base Excess ABG Hemoglobin Oxyhemoglobin Sodium Potassium 3.5 L Chloride Carbon Dioxide BUN 26 H Creatinine 0.5 L Glucose 151 H POC Glucose 133 H 142 H Lactic Acid Calcium 8.3 L Phosphorus Magnesium AST ALT Alkaline Phosphatase Lactate Dehydrogenase Troponin T C-Reactive Protein NT-Pro-B Natriuret Pep Total Protein Albumin LDL Cholesterol Direct Vitamin B12 Crossmatch 12/04/21 12/04/21 12/05/21 11:24 15:58 04:36 WBC RBC Hgb Hct MCV MCH MCHC RDW Plt Count Seg Neuts % (Manual) Lymphocytes % (Manual) Seg Neutrophils # Man Lymphocytes # (Manual) Monocytes # (Manual) PT INR D-Dimer ABG pH ABG pO2 ABG HCO3 ABG O2 Saturation ABG Base Excess ABG Hemoglobin Oxyhemoglobin Sodium Potassium Chloride Carbon Dioxide BUN 21 H Creatinine 0.5 L Glucose 119 H POC Glucose 130 H 111 H Lactic Acid Calcium 8.3 L Phosphorus Magnesium AST ALT Alkaline Phosphatase Lactate Dehydrogenase Troponin T C-Reactive Protein NT-Pro-B Natriuret Pep Total Protein Albumin LDL Cholesterol Direct Vitamin B12 Crossmatch 12/05/21 12/05/21 12/05/21 05:15 10:40 11:12 WBC RBC 2.98 L Hgb 8.1 L Hct 24.6 L MCV MCH 27 L MCHC RDW 20.8 H Plt Count Seg Neuts % (Manual) Lymphocytes % (Manual) Seg Neutrophils # Man Lymphocytes # (Manual) Monocytes # (Manual) PT INR D-Dimer ABG pH ABG pO2 ABG HCO3 ABG O2 Saturation ABG Base Excess ABG Hemoglobin Oxyhemoglobin Sodium Potassium Chloride Carbon Dioxide BUN Creatinine Glucose POC Glucose 107 H 110 H Lactic Acid Calcium Phosphorus Magnesium AST ALT Alkaline Phosphatase Lactate Dehydrogenase Troponin T C-Reactive Protein NT-Pro-B Natriuret Pep Total Protein Albumin LDL Cholesterol Direct Vitamin B12 Crossmatch 12/05/21 12/06/21 12/06/21 23:39 04:25 04:25 WBC RBC 2.95 L Hgb 7.9 L Hct 24.7 L MCV MCH 27 L MCHC RDW 20.9 H Plt Count Seg Neuts % (Manual) Lymphocytes % (Manual) Seg Neutrophils # Man Lymphocytes # (Manual) Monocytes # (Manual) PT INR D-Dimer ABG pH ABG pO2 ABG HCO3 ABG O2 Saturation ABG Base Excess ABG Hemoglobin Oxyhemoglobin Sodium Potassium Chloride Carbon Dioxide BUN 22 H Creatinine 0.5 L Glucose 136 H POC Glucose 118 H Lactic Acid Calcium 8.2 L Phosphorus Magnesium AST ALT Alkaline Phosphatase Lactate Dehydrogenase Troponin T C-Reactive Protein NT-Pro-B Natriuret Pep Total Protein Albumin LDL Cholesterol Direct Vitamin B12 Crossmatch 12/06/21 12/06/21 12/07/21 05:28 11:27 04:00 WBC RBC Hgb 7.2 L Hct 21.8 L MCV MCH MCHC RDW Plt Count Seg Neuts % (Manual) Lymphocytes % (Manual) Seg Neutrophils # Man Lymphocytes # (Manual) Monocytes # (Manual) PT INR D-Dimer ABG pH ABG pO2 ABG HCO3 ABG O2 Saturation ABG Base Excess ABG Hemoglobin Oxyhemoglobin Sodium Potassium Chloride Carbon Dioxide BUN Creatinine Glucose POC Glucose 142 H 126 H Lactic Acid Calcium Phosphorus Magnesium AST ALT Alkaline Phosphatase Lactate Dehydrogenase Troponin T C-Reactive Protein NT-Pro-B Natriuret Pep Total Protein Albumin LDL Cholesterol Direct Vitamin B12 Crossmatch 12/07/21 12/07/21 12/07/21 04:00 05:30 11:12 WBC RBC Hgb Hct MCV MCH MCHC RDW Plt Count Seg Neuts % (Manual) Lymphocytes % (Manual) Seg Neutrophils # Man Lymphocytes # (Manual) Monocytes # (Manual) PT INR D-Dimer ABG pH ABG pO2 ABG HCO3 ABG O2 Saturation ABG Base Excess ABG Hemoglobin Oxyhemoglobin Sodium Potassium Chloride Carbon Dioxide BUN 22 H Creatinine Glucose 119 H POC Glucose 121 H 124 H Lactic Acid Calcium 8.0 L Phosphorus Magnesium AST ALT Alkaline Phosphatase Lactate Dehydrogenase Troponin T C-Reactive Protein NT-Pro-B Natriuret Pep Total Protein Albumin LDL Cholesterol Direct Vitamin B12 Crossmatch 12/08/21 12/08/21 12/08/21 04:00 04:00 05:39 WBC RBC 2.81 L Hgb 7.7 L Hct 23.5 L MCV MCH MCHC RDW 21.2 H Plt Count Seg Neuts % (Manual) Lymphocytes % (Manual) Seg Neutrophils # Man Lymphocytes # (Manual) Monocytes # (Manual) PT INR D-Dimer ABG pH ABG pO2 ABG HCO3 ABG O2 Saturation ABG Base Excess ABG Hemoglobin Oxyhemoglobin Sodium 135 L Potassium Chloride Carbon Dioxide BUN 23 H Creatinine Glucose 109 H POC Glucose 112 H Lactic Acid Calcium Phosphorus Magnesium AST ALT Alkaline Phosphatase Lactate Dehydrogenase Troponin T C-Reactive Protein NT-Pro-B Natriuret Pep Total Protein Albumin LDL Cholesterol Direct Vitamin B12 Crossmatch 12/08/21 12/09/21 12/09/21 11:03 04:20 04:20 WBC RBC 2.67 L Hgb 7.6 L Hct 22.1 L MCV MCH MCHC RDW 20.8 H Plt Count Seg Neuts % (Manual) Lymphocytes % (Manual) Seg Neutrophils # Man Lymphocytes # (Manual) Monocytes # (Manual) PT INR D-Dimer ABG pH ABG pO2 ABG HCO3 ABG O2 Saturation ABG Base Excess ABG Hemoglobin Oxyhemoglobin Sodium 135 L Potassium Chloride 97.8 L Carbon Dioxide BUN 26 H Creatinine Glucose 119 H POC Glucose 108 H Lactic Acid Calcium 7.7 L Phosphorus Magnesium AST ALT Alkaline Phosphatase Lactate Dehydrogenase Troponin T C-Reactive Protein NT-Pro-B Natriuret Pep Total Protein Albumin LDL Cholesterol Direct Vitamin B12 Crossmatch 12/09/21 12/10/21 12/10/21 11:26 04:33 11:12 WBC RBC Hgb Hct MCV MCH MCHC RDW Plt Count Seg Neuts % (Manual) Lymphocytes % (Manual) Seg Neutrophils # Man Lymphocytes # (Manual) Monocytes # (Manual) PT INR D-Dimer ABG pH ABG pO2 ABG HCO3 ABG O2 Saturation ABG Base Excess ABG Hemoglobin Oxyhemoglobin Sodium 136 L Potassium Chloride Carbon Dioxide BUN 27 H Creatinine Glucose 117 H POC Glucose 110 H 117 H Lactic Acid Calcium 8.2 L Phosphorus Magnesium AST ALT Alkaline Phosphatase Lactate Dehydrogenase Troponin T C-Reactive Protein NT-Pro-B Natriuret Pep Total Protein Albumin LDL Cholesterol Direct Vitamin B12 Crossmatch 12/10/21 12/10/21 12/11/21 16:02 23:31 04:35 WBC RBC 2.57 L Hgb 7.0 L Hct 21.4 L MCV MCH 27 L MCHC RDW 21.1 H Plt Count Seg Neuts % (Manual) Lymphocytes % (Manual) Seg Neutrophils # Man Lymphocytes # (Manual) Monocytes # (Manual) PT INR D-Dimer ABG pH ABG pO2 ABG HCO3 ABG O2 Saturation ABG Base Excess ABG Hemoglobin Oxyhemoglobin Sodium Potassium Chloride Carbon Dioxide BUN Creatinine Glucose POC Glucose 137 H 111 H Lactic Acid Calcium Phosphorus Magnesium AST ALT Alkaline Phosphatase Lactate Dehydrogenase Troponin T C-Reactive Protein NT-Pro-B Natriuret Pep Total Protein Albumin LDL Cholesterol Direct Vitamin B12 Crossmatch 12/11/21 12/11/21 12/11/21 04:35 12:46 16:07 WBC RBC Hgb Hct MCV MCH MCHC RDW Plt Count Seg Neuts % (Manual) Lymphocytes % (Manual) Seg Neutrophils # Man Lymphocytes # (Manual) Monocytes # (Manual) PT INR D-Dimer ABG pH ABG pO2 ABG HCO3 ABG O2 Saturation ABG Base Excess ABG Hemoglobin Oxyhemoglobin Sodium 136 L Potassium Chloride Carbon Dioxide BUN 27 H Creatinine Glucose 112 H POC Glucose 115 H 111 H Lactic Acid Calcium 7.6 L Phosphorus Magnesium AST ALT Alkaline Phosphatase Lactate Dehydrogenase Troponin T C-Reactive Protein NT-Pro-B Natriuret Pep Total Protein Albumin LDL Cholesterol Direct Vitamin B12 Crossmatch 12/11/21 12/12/21 12/12/21 23:42 04:30 04:30 WBC RBC 2.60 L Hgb 7.1 L Hct 21.5 L MCV MCH 27 L MCHC RDW 20.3 H Plt Count Seg Neuts % (Manual) Lymphocytes % (Manual) Seg Neutrophils # Man Lymphocytes # (Manual) Monocytes # (Manual) PT INR D-Dimer ABG pH ABG pO2 ABG HCO3 ABG O2 Saturation ABG Base Excess ABG Hemoglobin Oxyhemoglobin Sodium 135 L Potassium Chloride 97.9 L Carbon Dioxide BUN 26 H Creatinine 0.5 L Glucose 138 H POC Glucose 115 H Lactic Acid Calcium 8.2 L Phosphorus Magnesium AST ALT Alkaline Phosphatase Lactate Dehydrogenase Troponin T C-Reactive Protein NT-Pro-B Natriuret Pep Total Protein Albumin LDL Cholesterol Direct Vitamin B12 Crossmatch 12/12/21 12/12/21 12/12/21 04:30 05:10 11:51 WBC RBC Hgb Hct MCV MCH MCHC RDW Plt Count Seg Neuts % (Manual) Lymphocytes % (Manual) Seg Neutrophils # Man Lymphocytes # (Manual) Monocytes # (Manual) PT INR D-Dimer ABG pH ABG pO2 ABG HCO3 ABG O2 Saturation ABG Base Excess ABG Hemoglobin Oxyhemoglobin Sodium Potassium Chloride Carbon Dioxide BUN Creatinine Glucose POC Glucose 119 H 119 H Lactic Acid Calcium Phosphorus Magnesium AST ALT Alkaline Phosphatase Lactate Dehydrogenase Troponin T C-Reactive Protein NT-Pro-B Natriuret Pep Total Protein Albumin LDL Cholesterol Direct Vitamin B12 Crossmatch See Detail 12/13/21 12/13/21 12/13/21 00:52 04:00 04:00 WBC RBC 2.73 L Hgb 7.4 L Hct 22.8 L MCV MCH 27 L MCHC RDW 20.5 H Plt Count Seg Neuts % (Manual) Lymphocytes % (Manual) Seg Neutrophils # Man Lymphocytes # (Manual) Monocytes # (Manual) PT INR D-Dimer ABG pH ABG pO2 ABG HCO3 ABG O2 Saturation ABG Base Excess ABG Hemoglobin Oxyhemoglobin Sodium 134 L Potassium Chloride 96.7 L Carbon Dioxide BUN 23 H Creatinine 0.5 L Glucose 131 H POC Glucose 131 H Lactic Acid Calcium 8.1 L Phosphorus Magnesium AST ALT Alkaline Phosphatase Lactate Dehydrogenase Troponin T C-Reactive Protein NT-Pro-B Natriuret Pep Total Protein Albumin LDL Cholesterol Direct Vitamin B12 Crossmatch 12/13/21 12/13/21 12/13/21 05:23 12:11 17:18 WBC RBC Hgb Hct MCV MCH MCHC RDW Plt Count Seg Neuts % (Manual) Lymphocytes % (Manual) Seg Neutrophils # Man Lymphocytes # (Manual) Monocytes # (Manual) PT INR D-Dimer ABG pH ABG pO2 ABG HCO3 ABG O2 Saturation ABG Base Excess ABG Hemoglobin Oxyhemoglobin Sodium Potassium Chloride Carbon Dioxide BUN Creatinine Glucose POC Glucose 121 H 143 H 148 H Lactic Acid Calcium Phosphorus Magnesium AST ALT Alkaline Phosphatase Lactate Dehydrogenase Troponin T C-Reactive Protein NT-Pro-B Natriuret Pep Total Protein Albumin LDL Cholesterol Direct Vitamin B12 Crossmatch 12/14/21 12/14/21 12/14/21 00:54 04:20 04:20 WBC RBC 2.39 L Hgb 6.5 L Hct 20.3 L MCV MCH 27 L MCHC RDW 20.3 H Plt Count Seg Neuts % (Manual) Lymphocytes % (Manual) Seg Neutrophils # Man Lymphocytes # (Manual) Monocytes # (Manual) PT INR D-Dimer ABG pH ABG pO2 ABG HCO3 ABG O2 Saturation ABG Base Excess ABG Hemoglobin Oxyhemoglobin Sodium 130 L Potassium Chloride 93.5 L Carbon Dioxide BUN 25 H Creatinine Glucose 123 H POC Glucose 123 H Lactic Acid Calcium 8.0 L Phosphorus Magnesium AST ALT Alkaline Phosphatase Lactate Dehydrogenase Troponin T C-Reactive Protein NT-Pro-B Natriuret Pep Total Protein Albumin LDL Cholesterol Direct Vitamin B12 Crossmatch 12/14/21 12/14/21 12/14/21 05:06 08:17 10:30 WBC RBC Hgb Hct MCV MCH MCHC RDW Plt Count Seg Neuts % (Manual) Lymphocytes % (Manual) Seg Neutrophils # Man Lymphocytes # (Manual) Monocytes # (Manual) PT INR D-Dimer ABG pH ABG pO2 ABG HCO3 ABG O2 Saturation ABG Base Excess ABG Hemoglobin Oxyhemoglobin Sodium Potassium Chloride Carbon Dioxide BUN Creatinine Glucose POC Glucose 131 H 119 H Lactic Acid Calcium Phosphorus Magnesium AST ALT Alkaline Phosphatase Lactate Dehydrogenase Troponin T C-Reactive Protein NT-Pro-B Natriuret Pep Total Protein Albumin LDL Cholesterol Direct Vitamin B12 Crossmatch See Detail 12/14/21 12/14/21 12/14/21 12:15 16:37 23:27 WBC RBC Hgb Hct MCV MCH MCHC RDW Plt Count Seg Neuts % (Manual) Lymphocytes % (Manual) Seg Neutrophils # Man Lymphocytes # (Manual) Monocytes # (Manual) PT INR D-Dimer ABG pH ABG pO2 ABG HCO3 ABG O2 Saturation ABG Base Excess ABG Hemoglobin Oxyhemoglobin Sodium Potassium Chloride Carbon Dioxide BUN Creatinine Glucose POC Glucose 147 H 141 H 130 H Lactic Acid Calcium Phosphorus Magnesium AST ALT Alkaline Phosphatase Lactate Dehydrogenase Troponin T C-Reactive Protein NT-Pro-B Natriuret Pep Total Protein Albumin LDL Cholesterol Direct Vitamin B12 Crossmatch 12/15/21 12/15/21 12/15/21 05:00 07:00 07:00 WBC 12.3 H RBC 3.27 L Hgb 8.8 L Hct 27.5 L D MCV MCH 27 L MCHC RDW 19.0 H Plt Count Seg Neuts % (Manual) Lymphocytes % (Manual) Seg Neutrophils # Man Lymphocytes # (Manual) Monocytes # (Manual) PT INR D-Dimer ABG pH ABG pO2 ABG HCO3 ABG O2 Saturation ABG Base Excess ABG Hemoglobin Oxyhemoglobin Sodium 134 L Potassium Chloride 95.7 L Carbon Dioxide BUN 28 H Creatinine Glucose 129 H POC Glucose 129 H Lactic Acid Calcium 8.2 L Phosphorus Magnesium AST ALT Alkaline Phosphatase Lactate Dehydrogenase Troponin T C-Reactive Protein NT-Pro-B Natriuret Pep Total Protein Albumin LDL Cholesterol Direct Vitamin B12 Crossmatch 12/15/21 12/15/21 12/15/21 11:18 16:00 23:39 WBC RBC Hgb Hct MCV MCH MCHC RDW Plt Count Seg Neuts % (Manual) Lymphocytes % (Manual) Seg Neutrophils # Man Lymphocytes # (Manual) Monocytes # (Manual) PT INR D-Dimer ABG pH ABG pO2 ABG HCO3 ABG O2 Saturation ABG Base Excess ABG Hemoglobin Oxyhemoglobin Sodium Potassium Chloride Carbon Dioxide BUN Creatinine Glucose POC Glucose 139 H 137 H 146 H Lactic Acid Calcium Phosphorus Magnesium AST ALT Alkaline Phosphatase Lactate Dehydrogenase Troponin T C-Reactive Protein NT-Pro-B Natriuret Pep Total Protein Albumin LDL Cholesterol Direct Vitamin B12 Crossmatch 12/16/21 12/16/21 12/16/21 05:24 10:21 10:21 WBC 15.3 H RBC 3.24 L Hgb 8.9 L Hct 27.7 L MCV MCH MCHC RDW 19.0 H Plt Count Seg Neuts % (Manual) Lymphocytes % (Manual) Seg Neutrophils # Man Lymphocytes # (Manual) Monocytes # (Manual) PT INR D-Dimer ABG pH ABG pO2 ABG HCO3 ABG O2 Saturation ABG Base Excess ABG Hemoglobin Oxyhemoglobin Sodium 131 L Potassium 3.5 L Chloride 92.7 L Carbon Dioxide BUN 36 H Creatinine Glucose 160 H POC Glucose 121 H Lactic Acid Calcium Phosphorus Magnesium 1.60 L AST ALT Alkaline Phosphatase Lactate Dehydrogenase Troponin T C-Reactive Protein NT-Pro-B Natriuret Pep Total Protein Albumin LDL Cholesterol Direct Vitamin B12 Crossmatch 12/16/21 12/16/21 12/16/21 11:21 18:28 20:52 WBC RBC Hgb Hct MCV MCH MCHC RDW Plt Count Seg Neuts % (Manual) Lymphocytes % (Manual) Seg Neutrophils # Man Lymphocytes # (Manual) Monocytes # (Manual) PT INR D-Dimer ABG pH 7.479 H ABG pO2 79.3 L ABG HCO3 27.3 H ABG O2 Saturation ABG Base Excess 3.6 H ABG Hemoglobin 9.1 L Oxyhemoglobin 94.9 L Sodium Potassium Chloride Carbon Dioxide BUN Creatinine Glucose POC Glucose 153 H 132 H Lactic Acid Calcium Phosphorus Magnesium AST ALT Alkaline Phosphatase Lactate Dehydrogenase Troponin T C-Reactive Protein NT-Pro-B Natriuret Pep Total Protein Albumin LDL Cholesterol Direct Vitamin B12 Crossmatch 12/16/21 12/17/21 12/17/21 23:30 04:25 04:25 WBC 12.3 H RBC 2.16 L Hgb 6.0 L Hct 18.1 L* D MCV MCH MCHC RDW 19.4 H Plt Count Seg Neuts % (Manual) Lymphocytes % (Manual) Seg Neutrophils # Man Lymphocytes # (Manual) Monocytes # (Manual) PT INR D-Dimer ABG pH ABG pO2 ABG HCO3 ABG O2 Saturation ABG Base Excess ABG Hemoglobin Oxyhemoglobin Sodium 132 L Potassium 3.2 L Chloride 112.0 H Carbon Dioxide BUN 32 H Creatinine Glucose 122 H POC Glucose 137 H Lactic Acid Calcium 6.8 L D Phosphorus Magnesium AST ALT Alkaline Phosphatase Lactate Dehydrogenase Troponin T C-Reactive Protein NT-Pro-B Natriuret Pep Total Protein Albumin LDL Cholesterol Direct Vitamin B12 Crossmatch 12/17/21 12/17/21 12/17/21 05:30 11:49 14:45 WBC RBC Hgb 9.7 L D Hct MCV MCH MCHC RDW Plt Count Seg Neuts % (Manual) Lymphocytes % (Manual) Seg Neutrophils # Man Lymphocytes # (Manual) Monocytes # (Manual) PT INR D-Dimer ABG pH ABG pO2 ABG HCO3 ABG O2 Saturation ABG Base Excess ABG Hemoglobin Oxyhemoglobin Sodium Potassium Chloride Carbon Dioxide BUN Creatinine Glucose POC Glucose 137 H 143 H Lactic Acid Calcium Phosphorus Magnesium AST ALT Alkaline Phosphatase Lactate Dehydrogenase Troponin T C-Reactive Protein NT-Pro-B Natriuret Pep Total Protein Albumin LDL Cholesterol Direct Vitamin B12 Crossmatch 12/17/21 12/18/21 12/18/21 17:01 05:04 05:04 WBC 13.8 H RBC 3.44 L Hgb 9.9 L Hct 28.8 L MCV MCH MCHC RDW 18.1 H Plt Count Seg Neuts % (Manual) Lymphocytes % (Manual) Seg Neutrophils # Man Lymphocytes # (Manual) Monocytes # (Manual) PT INR D-Dimer ABG pH ABG pO2 ABG HCO3 ABG O2 Saturation ABG Base Excess ABG Hemoglobin Oxyhemoglobin Sodium 132 L Potassium Chloride 97.4 L Carbon Dioxide BUN 38 H Creatinine Glucose 134 H POC Glucose 132 H Lactic Acid Calcium Phosphorus Magnesium AST ALT Alkaline Phosphatase Lactate Dehydrogenase Troponin T C-Reactive Protein NT-Pro-B Natriuret Pep Total Protein Albumin LDL Cholesterol Direct Vitamin B12 Crossmatch 12/18/21 12/18/21 12/18/21 05:28 10:57 16:27 WBC RBC Hgb Hct MCV MCH MCHC RDW Plt Count Seg Neuts % (Manual) Lymphocytes % (Manual) Seg Neutrophils # Man Lymphocytes # (Manual) Monocytes # (Manual) PT INR D-Dimer ABG pH ABG pO2 ABG HCO3 ABG O2 Saturation ABG Base Excess ABG Hemoglobin Oxyhemoglobin Sodium Potassium Chloride Carbon Dioxide BUN Creatinine Glucose POC Glucose 118 H 132 H 130 H Lactic Acid Calcium Phosphorus Magnesium AST ALT Alkaline Phosphatase Lactate Dehydrogenase Troponin T C-Reactive Protein NT-Pro-B Natriuret Pep Total Protein Albumin LDL Cholesterol Direct Vitamin B12 Crossmatch 12/19/21 12/19/21 12/19/21 00:02 04:41 04:41 WBC 16.0 H RBC 3.45 L Hgb 9.7 L Hct 29.1 L MCV MCH MCHC RDW 17.8 H Plt Count Seg Neuts % (Manual) Lymphocytes % (Manual) Seg Neutrophils # Man Lymphocytes # (Manual) Monocytes # (Manual) PT INR D-Dimer ABG pH ABG pO2 ABG HCO3 ABG O2 Saturation ABG Base Excess ABG Hemoglobin Oxyhemoglobin Sodium 133 L Potassium Chloride 97.9 L Carbon Dioxide BUN 36 H Creatinine 0.5 L Glucose 126 H POC Glucose 127 H Lactic Acid Calcium 8.3 L Phosphorus Magnesium AST ALT Alkaline Phosphatase Lactate Dehydrogenase Troponin T C-Reactive Protein NT-Pro-B Natriuret Pep Total Protein Albumin LDL Cholesterol Direct Vitamin B12 Crossmatch 12/19/21 12/19/21 12/19/21 05:26 12:20 16:43 WBC RBC Hgb Hct MCV MCH MCHC RDW Plt Count Seg Neuts % (Manual) Lymphocytes % (Manual) Seg Neutrophils # Man Lymphocytes # (Manual) Monocytes # (Manual) PT INR D-Dimer ABG pH ABG pO2 ABG HCO3 ABG O2 Saturation ABG Base Excess ABG Hemoglobin Oxyhemoglobin Sodium Potassium Chloride Carbon Dioxide BUN Creatinine Glucose POC Glucose 119 H 145 H 126 H Lactic Acid Calcium Phosphorus Magnesium AST ALT Alkaline Phosphatase Lactate Dehydrogenase Troponin T C-Reactive Protein NT-Pro-B Natriuret Pep Total Protein Albumin LDL Cholesterol Direct Vitamin B12 Crossmatch 12/19/21 12/20/21 12/20/21 23:30 04:54 04:54 WBC 12.3 H RBC 3.54 L Hgb 10.0 L Hct 29.5 L MCV MCH MCHC RDW 17.8 H Plt Count Seg Neuts % (Manual) 88.0 H Lymphocytes % (Manual) 6.0 L Seg Neutrophils # Man 10.8 H Lymphocytes # (Manual) 0.7 L Monocytes # (Manual) PT INR D-Dimer ABG pH ABG pO2 ABG HCO3 ABG O2 Saturation ABG Base Excess ABG Hemoglobin Oxyhemoglobin Sodium 131 L Potassium Chloride 96.2 L Carbon Dioxide BUN 36 H Creatinine 0.5 L Glucose 130 H POC Glucose 117 H Lactic Acid Calcium Phosphorus Magnesium AST ALT Alkaline Phosphatase Lactate Dehydrogenase Troponin T C-Reactive Protein NT-Pro-B Natriuret Pep Total Protein Albumin LDL Cholesterol Direct Vitamin B12 Crossmatch 12/20/21 12/20/21 12/20/21 05:20 11:51 17:30 WBC RBC Hgb Hct MCV MCH MCHC RDW Plt Count Seg Neuts % (Manual) Lymphocytes % (Manual) Seg Neutrophils # Man Lymphocytes # (Manual) Monocytes # (Manual) PT INR D-Dimer ABG pH ABG pO2 ABG HCO3 ABG O2 Saturation ABG Base Excess ABG Hemoglobin Oxyhemoglobin Sodium Potassium Chloride Carbon Dioxide BUN Creatinine Glucose POC Glucose 126 H 119 H 127 H Lactic Acid Calcium Phosphorus Magnesium AST ALT Alkaline Phosphatase Lactate Dehydrogenase Troponin T C-Reactive Protein NT-Pro-B Natriuret Pep Total Protein Albumin LDL Cholesterol Direct Vitamin B12 Crossmatch 12/21/21 12/21/21 12/21/21 00:45 04:21 04:21 WBC RBC 3.47 L Hgb 9.4 L Hct 29.2 L MCV MCH 27 L MCHC RDW 18.1 H Plt Count Seg Neuts % (Manual) Lymphocytes % (Manual) Seg Neutrophils # Man Lymphocytes # (Manual) Monocytes # (Manual) PT INR D-Dimer ABG pH ABG pO2 ABG HCO3 ABG O2 Saturation ABG Base Excess ABG Hemoglobin Oxyhemoglobin Sodium 134 L Potassium Chloride Carbon Dioxide BUN 35 H Creatinine 0.5 L Glucose 122 H POC Glucose 125 H Lactic Acid Calcium 8.2 L Phosphorus Magnesium AST ALT Alkaline Phosphatase Lactate Dehydrogenase Troponin T C-Reactive Protein NT-Pro-B Natriuret Pep Total Protein Albumin LDL Cholesterol Direct Vitamin B12 Crossmatch 12/21/21 12/21/21 12/21/21 05:38 11:29 16:16 WBC RBC Hgb Hct MCV MCH MCHC RDW Plt Count Seg Neuts % (Manual) Lymphocytes % (Manual) Seg Neutrophils # Man Lymphocytes # (Manual) Monocytes # (Manual) PT INR D-Dimer ABG pH ABG pO2 ABG HCO3 ABG O2 Saturation ABG Base Excess ABG Hemoglobin Oxyhemoglobin Sodium Potassium Chloride Carbon Dioxide BUN Creatinine Glucose POC Glucose 127 H 121 H 113 H Lactic Acid Calcium Phosphorus Magnesium AST ALT Alkaline Phosphatase Lactate Dehydrogenase Troponin T C-Reactive Protein NT-Pro-B Natriuret Pep Total Protein Albumin LDL Cholesterol Direct Vitamin B12 Crossmatch 12/22/21 12/22/21 12/23/21 04:58 04:58 06:40 WBC 11.5 H RBC 3.43 L Hgb 9.8 L Hct 28.7 L MCV MCH MCHC RDW 18.5 H 17.9 H Plt Count Seg Neuts % (Manual) Lymphocytes % (Manual) Seg Neutrophils # Man Lymphocytes # (Manual) Monocytes # (Manual) PT INR D-Dimer ABG pH ABG pO2 ABG HCO3 ABG O2 Saturation ABG Base Excess ABG Hemoglobin Oxyhemoglobin Sodium 130 L Potassium Chloride 97.8 L Carbon Dioxide BUN 31 H Creatinine 0.5 L Glucose 122 H POC Glucose Lactic Acid Calcium 7.9 L Phosphorus Magnesium AST ALT Alkaline Phosphatase Lactate Dehydrogenase Troponin T C-Reactive Protein NT-Pro-B Natriuret Pep Total Protein Albumin LDL Cholesterol Direct Vitamin B12 Crossmatch 0312/23/21 12/24/21 06:40 23:25 04:24 WBC 11.7 H RBC Hgb 9.8 L Hct MCV MCH 26 L MCHC RDW 18.1 H Plt Count Seg Neuts % (Manual) Lymphocytes % (Manual) Seg Neutrophils # Man Lymphocytes # (Manual) Monocytes # (Manual) PT INR D-Dimer ABG pH ABG pO2 ABG HCO3 ABG O2 Saturation ABG Base Excess ABG Hemoglobin Oxyhemoglobin Sodium 136 L Potassium Chloride Carbon Dioxide BUN 27 H Creatinine 0.4 L Glucose 107 H POC Glucose 110 H Lactic Acid Calcium 8.1 L Phosphorus Magnesium AST ALT Alkaline Phosphatase Lactate Dehydrogenase Troponin T C-Reactive Protein NT-Pro-B Natriuret Pep Total Protein Albumin LDL Cholesterol Direct Vitamin B12 Crossmatch 12/24/21 12/24/21 12/24/21 04:24 11:08 15:45 WBC RBC Hgb Hct MCV MCH MCHC RDW Plt Count Seg Neuts % (Manual) Lymphocytes % (Manual) Seg Neutrophils # Man Lymphocytes # (Manual) Monocytes # (Manual) PT INR D-Dimer ABG pH ABG pO2 ABG HCO3 ABG O2 Saturation ABG Base Excess ABG Hemoglobin Oxyhemoglobin Sodium 132 L Potassium Chloride Carbon Dioxide BUN 27 H Creatinine 0.3 L Glucose 108 H POC Glucose 116 H 107 H Lactic Acid Calcium Phosphorus Magnesium AST ALT Alkaline Phosphatase Lactate Dehydrogenase Troponin T C-Reactive Protein NT-Pro-B Natriuret Pep Total Protein Albumin LDL Cholesterol Direct Vitamin B12 Crossmatch 12/24/21 12/25/21 12/25/21 23:43 05:29 11:48 WBC RBC Hgb Hct MCV MCH MCHC RDW Plt Count Seg Neuts % (Manual) Lymphocytes % (Manual) Seg Neutrophils # Man Lymphocytes # (Manual) Monocytes # (Manual) PT INR D-Dimer ABG pH ABG pO2 ABG HCO3 ABG O2 Saturation ABG Base Excess ABG Hemoglobin Oxyhemoglobin Sodium Potassium Chloride Carbon Dioxide BUN Creatinine Glucose POC Glucose 123 H 107 H 119 H Lactic Acid Calcium Phosphorus Magnesium AST ALT Alkaline Phosphatase Lactate Dehydrogenase Troponin T C-Reactive Protein NT-Pro-B Natriuret Pep Total Protein Albumin LDL Cholesterol Direct Vitamin B12 Crossmatch 12/26/21 12/26/21 12/26/21 00:06 05:56 07:51 WBC 11.4 H RBC 3.40 L Hgb 9.3 L Hct 28.3 L MCV MCH 27 L MCHC RDW 18.2 H Plt Count Seg Neuts % (Manual) Lymphocytes % (Manual) Seg Neutrophils # Man Lymphocytes # (Manual) Monocytes # (Manual) PT INR D-Dimer ABG pH ABG pO2 ABG HCO3 ABG O2 Saturation ABG Base Excess ABG Hemoglobin Oxyhemoglobin Sodium Potassium Chloride Carbon Dioxide BUN Creatinine Glucose POC Glucose 133 H 107 H Lactic Acid Calcium Phosphorus Magnesium AST ALT Alkaline Phosphatase Lactate Dehydrogenase Troponin T C-Reactive Protein NT-Pro-B Natriuret Pep Total Protein Albumin LDL Cholesterol Direct Vitamin B12 Crossmatch 12/26/21 12/26/21 12/26/21 07:51 11:43 17:06 WBC RBC Hgb Hct MCV MCH MCHC RDW Plt Count Seg Neuts % (Manual) Lymphocytes % (Manual) Seg Neutrophils # Man Lymphocytes # (Manual) Monocytes # (Manual) PT INR D-Dimer ABG pH ABG pO2 ABG HCO3 ABG O2 Saturation ABG Base Excess ABG Hemoglobin Oxyhemoglobin Sodium 136 L Potassium Chloride Carbon Dioxide BUN 25 H Creatinine 0.3 L Glucose 131 H POC Glucose 119 H 128 H Lactic Acid Calcium Phosphorus Magnesium AST ALT Alkaline Phosphatase Lactate Dehydrogenase Troponin T C-Reactive Protein NT-Pro-B Natriuret Pep Total Protein Albumin LDL Cholesterol Direct Vitamin B12 Crossmatch 12/28/21 12/28/21 12/29/21 09:05 09:05 04:40 WBC RBC 3.19 L Hgb 8.9 L Hct 26.4 L MCV MCH 27 L MCHC RDW 18.4 H 17.9 H Plt Count Seg Neuts % (Manual) Lymphocytes % (Manual) Seg Neutrophils # Man Lymphocytes # (Manual) Monocytes # (Manual) PT INR D-Dimer ABG pH ABG pO2 ABG HCO3 ABG O2 Saturation ABG Base Excess ABG Hemoglobin Oxyhemoglobin Sodium 135 L Potassium Chloride 97.8 L Carbon Dioxide BUN 18 H Creatinine 0.3 L Glucose POC Glucose Lactic Acid Calcium Phosphorus Magnesium AST ALT Alkaline Phosphatase Lactate Dehydrogenase Troponin T C-Reactive Protein NT-Pro-B Natriuret Pep Total Protein Albumin LDL Cholesterol Direct Vitamin B12 Crossmatch 12/29/21 04:40 WBC RBC Hgb Hct MCV MCH MCHC RDW Plt Count Seg Neuts % (Manual) Lymphocytes % (Manual) Seg Neutrophils # Man Lymphocytes # (Manual) Monocytes # (Manual) PT INR D-Dimer ABG pH ABG pO2 ABG HCO3 ABG O2 Saturation ABG Base Excess ABG Hemoglobin Oxyhemoglobin Sodium 136 L Potassium Chloride Carbon Dioxide BUN Creatinine 0.3 L Glucose POC Glucose Lactic Acid Calcium 8.3 L Phosphorus Magnesium AST ALT Alkaline Phosphatase Lactate Dehydrogenase Troponin T C-Reactive Protein NT-Pro-B Natriuret Pep Total Protein Albumin LDL Cholesterol Direct Vitamin B12 Crossmatch Chest x-ray: image reviewed Allied health notes reviewed: RT
[2021-12-29] MEDS: DEXTROSE 10% *Hypoglycemia IV PRN (13:18)
[2021-12-29] MEDS: MIDODRINE 5 MG TAB PO SCH ×2 (17:00→17:03)
[2021-12-29] MEDS: VANCOMYCIN/NS 1 GM/250 ML 1 GM/250 ML BAG IV SCH (17:10)
[2021-12-29] MEDS: MELATONIN 5 MG TAB PO SCH (21:53)
[2021-12-29] MEDS: traZODone 50 MG TAB PO SCH (21:53)
[2021-12-29] MEDS: PRAVASTATIN 20 MG TAB PO SCH (21:54)
[2021-12-30] MEDS: DEXTROSE 10% *Hypoglycemia IV PRN (00:48)
[2021-12-30 04:38] LABS: Hematocrit 27.6 % (30.3-42.9); Hemoglobin 8.7 gm/dl (10.1-14.3); Mean Corpuscular HGB Conc 32 % (30-34); Mean Corpuscular Volume 84 fl (79-97); Platelet Count 259 K/mm3 (140-440); Red Blood Count 3.29 M/mm3 (3.65-5.03); Red Cell Distribution Width 17.6 % (13.2-15.2)
[2021-12-30 04:54] LABS: Blood Urea Nitrogen 17 mg/dL (7-17); Calcium 8.5 mg/dL (8.4-10.2); Hemolysis Index 16
[2021-12-30 04:56] LABS: BUN/Creatinine Ratio 43
[2021-12-30] MEDS: LEVOTHYROXINE 125 MCG TAB PO SCH (05:44)
[2021-12-30] MEDS: METOCLOPRAMIDE 10 MG/2 ML INJ IV SCH ×3 (05:44→21:30)
--- NOTE | 2021-12-30 07:39 | Ultrasound Report ---
ULTRASOUND CHEST HISTORY: Bilateral pleural effusions TECHNIQUE: Transabdominal imaging. IMPRESSION: This patient was brought to the radiology Department for ultrasound-guided right thoracen tesis. Informed consent was obtained. While positioning the patient for ultrasound-guided thoracentes is, the patient experienced slight respiratory distress with oxygen desaturations. Due to the patient 's condition a decision was made to not perform the ultrasound-guided thoracentesis. The patient's nu rse and respiratory therapy were present to suggested and agreed with this decision. Images were obta ined which demonstrates a moderate size free flowing right pleural effusion with volume estimated at 1163 cc. Signer Name: Job López Jr, MD Signed: 12/30/2021 7:34 AM Workstation Name: [id number]
[2021-12-30] MEDS ORDERED: POTASSIUM CHLORIDE 20 MEQ PACKET FEEDTUBE SCH (09:00)
[2021-12-30] MEDS ORDERED: MAGNESIUM SULFATE 4 GM/100 ML BAG IV SCH (09:00)
[2021-12-30] MEDS: busPIRone 5 MG TAB FEEDTUBE SCH ×2 (09:05→21:30)
[2021-12-30] MEDS: QUEtiapine 25 MG TAB FEEDTUBE SCH ×2 (09:06→21:29)
[2021-12-30] MEDS: GABAPENTIN 100 MG CAP FEEDTUBE SCH (09:06)
[2021-12-30] MEDS: SPIRONOLACTONE 25 MG TAB FEEDTUBE SCH (09:06)
[2021-12-30] MEDS: HYDROcodone/ACETAMINOPHEN 10-325MG TAB FEEDTUBE SCH ×3 (09:09→21:27)
[2021-12-30] MEDS: MIDODRINE 5 MG TAB FEEDTUBE SCH ×3 (09:09→17:59)
[2021-12-30] MEDS: DOCUSATE SODIUM 100 MG/10 ML ORAL LIQD FEEDTUBE SCH ×2 (09:10→21:32)
[2021-12-30] MEDS: LANSOPRAZOLE 30 MG SOLUTAB FEEDTUBE SCH ×2 (09:11→21:29)
[2021-12-30] MEDS: POLYETHYLENE GLYCOL 3350 17 GM POWDER FEEDTUBE SCH (09:11)
[2021-12-30] MEDS: SENNOSIDES ORAL LIQD 8.8 MG/5 ML ORAL LIQD FEEDTUBE SCH ×2 (09:11→21:32)
[2021-12-30] MEDS: METOPROLOL TARTRATE 25 MG TAB FEEDTUBE SCH ×2 (09:11→21:29)
--- NOTE | 2021-12-30 10:20 | Electrocardiograph Report ---
[facility] Test Date: 2021-12-29 Test Time: 15:39:30 Pat Name: ENRRIQUE GLASS Department: Room: A262 1 Gender: F Bank Examiner: GILBERTO : 1940 Requested By: LEAH ALFONSO Order Number: [id number] Reading MD: Kvng Tobin Measurements Intervals [place] Rate: 98 P: 57 MD: 194 QRS: -28 QRSD: 121 T: 123 QT: 356 QTc: 455 Interpretive Statements Sinus rhythm Nonspecific intraventricular conduction delay Abnrm T, consider ischemia, anterolateral lds Compared to ECG 11/29/2021 09:34:11 Possible ischemia now present Left anterior fascicular block no longer present Right bundle-branch block no longer present Electronically Signed On 12-30-2021 10:19:49 EDT by Kvng Tobin
--- NOTE | 2021-12-30 11:47 | Progress Note ---
<LONNIE MAURICE - Last Filed: 12/30/21 18:41> Assessment and Plan Assessment and plan: This is a 81-year-old female with known history of diabetes mellitus, hypertension, PPM, and arthritis admitted for sepsis and acute hypoxia respiratory failure 2/2 bilateral pneumonia requiring intubation and ventilatory support Hospital Course to date: ------ 12/04: Increased agitation and anxiety overnight, remains on buspar and seroquel, trazadone added to promote rest. Patient is now working with PT, keep patient engage and awake during the day so she can rest at night. No BM for over 5 days, BR was adjusted. Patient did not tolerate PST again yesterday, continue daily PST as tolerated. Continue to titrate pressor for MAP above 65. Pending possible LTAC placement, case management to arrange. 12/05: Still not getting much rest overnight, will add melatonin for sleep. Continue to engage patient during the day and promote rest at night. TF was held due to concern for possible bleeding, H&H remains stable and stools normal this am. Resume TF and continue PPI and carafate. Remains on low dose levophed, titrate as tolerated. Continue daily PST. Possible LTAC placement, awaiting approval. 12/06: [facility] overnight. Patient rested overnight. Continue supportive measures. Daily PST as tolerated. Awaiting possible LTAC placement 12/07: [facility] overnight. Plan for Tpiece trial today. Continue current supportive measures. Possible LTAC placement 12/08: Patient placed on pressure support trial again today, started on Xanax, no acute events reported overnight. Awaiting insurance approval for LTAC. 12/09: Levophed discontinued, LTAC transfer denied, started on midodrine and Lasix, ultrasound chest pending, started on Xanax 0.[address] De León updated family at bedside today. Started on Dilaudid every 3 hours as needed. 12/10: Patient placed on CPAP trial this morning, no acute events reported overnight. Will order ultrasound-guided thoracentesis. 12/11: Patient had a thoracentesis today, will decrease Xanax dosage and continue midodrine and diuresing. Patient failed CPAP today. 12/12: Patient not tolerate CPAP trials today, no acute events reported overnight 12/13: No acute events overnight. continue PSV trials as tolerated. Daughter updated at bedside 12/14: Patient noted to be anemic today, worsened gastric occult. Patient seems to be oversedated therefore Xanax changed to as needed and fentanyl patch discontinued. We will continue to monitor hyponatremia. 12/15: [facility] overnight. s/p 1unit of PRBCs, H&H stable this am, no signs of any active bleeding. Continue daily PST as tolerated. Awaiting placement. 12/16: Hypertensive this am, Midodrine decreased. Continue daily PST. [facility] overnight 12/17: Patient Hgb dropped to 6 this am, no s/s of any active bleeding, VSS. Patient received 1unit of PRBC, will continue to trend H&H. Patient was pancul tured and back on IV Abx due to persistent fevers yesterday. ID is also back on the case. Continue IV Abx per ID and f/u on cultures data for sensitivity. Patient also failed PST yesterday, continue daily PST as tolerated. Electrolytes repleted, repeat labs in the am. 12/18: Patient blood cultures is growing GPC 4 out 4 bottles. PICC line D/Sara, patient is already on IV Abx-cefepine and Vanc and ID is following. Patient remains hemodynamically stable. Daily PST as tolerated adn PRN Benzo for anx iety. 12/19: [facility] overnight. Culture data noted, continue IV Abx per ID. Orders placed for repeat Bculture. Sánchez D/C overnight, patient is voiding. Check bladder scan as needed for retention. Patient failed PST again today. Continue daily PST as tolerated. 12/20: Fevers improved, Cultures +MRSA, on Vanco per ID. Repeat 2D Echo to r/o endocarditis. Patient continue to fail PST, PEEP increased to 8 today. Continue pulmonary hygiene and vent wean per [facility]. Sodium tab added for hyponatremia. 12/21: Remains afebrile, repeat B.culture with NGTD, 2D echo noted with no obvious vegetation noted. Continue IV Vanc per ID. Hyponatremia improved. Tolerating PST this am, Continue daily PST. 12/22: Patient on pressure support trial for approximately 4 hours today, midodrine dosage increased due to hypotension. Lasix discontinued. 12/23: Started on a.m. Seroquel dose, midodrine increased to 10 mg 3 times daily, 500 mL normal saline bolus. 12/24: Seroquel dose changed (25 every morning, 75 nightly). updated at bedside by Dr. De León. CPAP trials as tolerated. Continue vancomycin. Awaiting placement. 12/25: Continue CPAP as tolerated, added gasx for distention. Continue supportive care 12/26: Patient failed PSV this AM. no acute events overnight. 12/27: GI re-consulted due to abdominal distention. No acute events reported overnight. CPAP trials as tolerated. Dr. Mckenna will get a KUB to rule out possible obstruction. 12/28: KUB shows no acute process, CXR shows improvement. CPAP trials as tolerated. 12/29: CT Abd/pelvis noted with moderated bilateral pleural effusion, anasarca, and ascites. X1dose of IV lasix administered. D/w CCM and GI orders plan for thora and paracentesis by IR. Will also start patient on aldactone Qday. Patient is tolerating trickle feeds this am, continue TF and BR adjusted for constipation. Plan of care was discussed with patient and her at the bedside. Thorough discussion on patient's overall poor prognosis and that patient will most likely be vent dependent. Patient's voiced understanding of the info given. All questions and concerns were voiced at this time. 12/30: Patient did not tolerate thoracentesis in IR yesterday due to change in LOC and hypoxia. Plan for possible bedside thoracentesis and paracentesis today. Patient remains afebrile. Patient required stull hewer IV abx therapy [id number] left, orders placed for a PICC. Patient remains with sign. Piting edema and anasarca, X1 does of PO Zaroxolyn and 2m of IV lasix given. Electrolytes repleted, repeat lab in the am. Assessment and Plan #MRSA Bacteremia #MRSA Pneumonia #Septic Shock POA-resolved - Presented with fevers, leukocytosis, and hypotension - COVID PCR negative - 11/04 Bcult with 3/4 group B strep bacteremia, [id number] Bculture NGTD - 11/04 2D Echo with no evidence of vegetation - New fevers on 12/16- Blood and sputum culture with MRSA - 12/16- UA is unremarkable - 12/18 repeat B.culture with NGTD - 12/19 Repeat 2D echo- with no obvious vegetation noted. EF 35-40% - ID on consult, appreciate recommendations - Continue IV Abx- Vanco per ID recs. demand planner therapy, need a PICC - Trend CBC #Acute Hypoxic Respiratory Failure 11/19 #MRSA Pneumonia #Bilateral Pleural Effusion #Right Pneumothorax-resolved - COVID PCR negative - CXR shows Bilateral opacities, may be volume overloaded - CCM consulted, appreciate recommendations - Intubated on 11/06, ETT exchanged on 11/11 - 11/11 Bronchoscopy--Complicated by spontaneous pneumothorax - 11/11 S/p chest tube placement for right pneumothorax, removed by patient on 11/15 - 11/26 s/p Tracheostomy and PEGtube placement - 12/11 thoracentesis due to moderate pleural effusion-1L removed - This am Vent Setting:CPAP-30%,8 PS-20 - Continue Nebs treatment - Continue daily PST as tolerated - VAP bundle addressed - Aspiration precaution HOB above 30 - PRN ABG and CXR per [facility] - Continue SPO2 monitoring for SPO2 goal above 92% - 12/28 CT Abd/Pelvis noted - Plan for possible Thoracentesis and Paracentesis by IR #CHF- EF 30-35% with PPM #Hypotension-resolved #Septic Kristian-resolved - SR on the monitor, HR 70-90s - 11/04 Echo-EF 30-35% - 12/19 Repeat EF 35-40% - Continue beta-charleen - Not on aspirin due to allergy - Statins resumed - Continue blood pressure monitor per protocol - Maintain MAP above 65 - Cardiology signed off #Acute Microcytic Anemia #Acute Blood Loss-resolved #Acute GI Bleed-resolved - s/p a total of 7units of PRBCs since admit - 11/18 EGD- Large cratered ulcer in the posterior duodenal bulb about 2 cm in diameter. Visible vessel present. Mild active oozing from the ulcer bed. A total of 3 injections were performed around the ulcer for a total of 2.5 cc of dilute epinephrine and hemostasis was obtained.--> See full report - GI signed off - Stool occult still positive - H&H stable - Continue PPI and Carafate - Continue to trend CBC - Transfuse for H&H less than 7 - Hold AC for now #Hyponatremia #Hypokalemia - On PO lasix - X1 dose of PO sodium tab given - Strict intake and output - Continue to monitor and replace electrolytes as needed - Trend BMP,mag, & phosp #Urinary Retention-resolved - Sánchez reinserted on 11/19 for retention - Sánchez D/sara, patient is voiding - Bladder scan with no residual #Acute DVT in RLE - BLE doppler + Acute DVT in the right external iliac vein, common femoral vein, and superior aspect of femoral vein - Was on Therapeutic Lovenox- held to due GI Bleed - 11/17 s/p IVC filter placement by Vascular Surg #Agitation/Anxiety #Chronic Pain #Acute Encephalopathy-Resolved - Awake and following commands - Continue Buspar and seroquel - PRN Xanax for anxiety - CT head and EEG noted - Neurology consulted - PRN analgesia for pain management #Transaminitis/Shock Liver - Probably due to bacteria/spetic shock - Continue to Trend LFTs #Endo: h/o DM and hypothyroidism - Continue home Synthroid - Accu-Cheks every 6hrs - Avoid hypoglycemia The high probability of a clinically significant, sudden or life threatening deterioration of the [multi] system(s) required my full and direct attention, intervention and personal management. The aggregate critical care time was [60] minutes. This time is in addition to time spent performing reported procedures but includes the following: [x] Data Review and interpretation [x] Patient assessment and monitoring of vital signs [x] Documentation [x] Medication orders and management Disposition Plan: ICU Total Time Spent with Patient (Minutes): 60 History Interval history: Patient seen and examined at the bedside. Remains stable on the vent, AAO, foll owing commands. Patient did not tolerated thoracentesis in IR yesterday. She was unresponsive and hypoxic during the procedure. Procedure was aborted and patient was required full ventilatory support for a short duration. Symptoms resolved this am, vent is back down to 40% Fio2 and peep of 8 this am. Tolerating PST this am Hospitalist Physical - Constitutional Vitals: Temp Pulse Resp BP Pulse Ox 98 F 66 9 L 102/41 98 12/30/21 04:00 12/30/21 08:08 12/30/21 07:00 12/30/21 08:08 12/30/21 08:15 General appearance: Present: no acute distress, other (Trach and on the vent) - EENT Eyes: Present: PERRL ENT: hearing intact - Neck Neck: Present: normal ROM - Respiratory Respiratory effort: normal Respiratory: bilateral: rhonchi - Cardiovascular Rhythm: regular Heart Sounds: Present: S1 & S2 - Extremities Extremities: no ischemia, pulses intact, pulses symmetrical Extremity abnormal: edema - Peripheral Assessment Generalized Edema Type: Pitting Edema Degree: 3+ Capillary Refill: < 3 seconds Skin Temperature: Warm Peripheral Pulses: within normal limits - Abdominal General gastrointestinal: soft, non-distended, normal bowel sounds - Integumentary Integumentary: Present: warm, dry - Psychiatric Psychiatric: appropriate mood/affect, cooperative - Neurologic Neurologic: moves all extremities - Allied Health Allied health notes reviewed: nursing, case management HEART Score - HEART Score Troponin: Troponin T 0.045 ng/mL (0.00-0.029) H 11/29/21 20:15 Results - Labs CBC & Chem 7: 12/30/21 04:05 12/30/21 04:05 Labs: Laboratory Last Values WBC 9.6 K/mm3 (4.5-11.0) 12/30/21 04:05 RBC 3.29 M/mm3 (3.65-5.03) L 12/30/21 04:05 Hgb 8.7 gm/dl (10.1-14.3) L 12/30/21 04:05 Hct 27.6 % (30.3-42.9) L 12/30/21 04:05 MCV 84 fl (79-97) 12/30/21 04:05 MCH 27 pg (28-32) L 12/30/21 04:05 MCHC 32 % (30-34) 12/30/21 04:05 RDW 17.6 % (13.2-15.2) H 12/30/21 04:05 Plt Count 259 K/mm3 (140-440) 12/30/21 04:05 Add Manual Diff Complete 12/20/21 04:54 Total Counted 100 12/20/21 04:54 Seg Neutrophils % [employer] Program Director 11/06/21 15:50 Seg Neuts % (Manual) 88.0 % (40.0-70.0) H 12/20/21 04:54 Band Neutrophils % 0 % 12/20/21 04:54 Lymphocytes % (Manual) 6.0 % (13.4-35.0) L 12/20/21 04:54 Reactive Lymphs % (Man) 0 % 12/20/21 04:54 Monocytes % (Manual) 5.0 % (0.0-7.3) 12/20/21 04:54 Eosinophils % (Manual) 1.0 % (0.0-4.3) 12/20/21 04:54 Basophils % (Manual) 0 % (0.0-1.8) 12/20/21 04:54 Metamyelocytes % 0 % 12/20/21 04:54 Myelocytes % 0 % 12/20/21 04:54 Promyelocytes % 0 % 12/20/21 04:54 Blast Cells % 0 % 12/20/21 04:54 Nucleated RBC % Not Reportable 12/20/21 04:54 Seg Neutrophils # Man 10.8 K/mm3 (1.8-7.7) H 12/20/21 04:54 Band Neutrophils # 0.0 K/mm3 12/20/21 04:54 Lymphocytes # (Manual) 0.7 K/mm3 (1.2-5.4) L 12/20/21 04:54 Abs React Lymphs (Man) 0.0 K/mm3 12/20/21 04:54 Monocytes # (Manual) 0.6 K/mm3 (0.0-0.8) 12/20/21 04:54 Eosinophils # (Manual) 0.1 K/mm3 (0.0-0.4) 12/20/21 04:54 Basophils # (Manual) 0.0 K/mm3 (0.0-0.1) 12/20/21 04:54 Metamyelocytes # 0.0 K/mm3 12/20/21 04:54 Myelocytes # 0.0 K/mm3 12/20/21 04:54 Promyelocytes # 0.0 K/mm3 12/20/21 04:54 Blast Cells # 0.0 K/mm3 12/20/21 04:54 WBC Morphology Not Reportable 12/20/21 04:54 Hypersegmented Neuts Not Reportable 12/20/21 04:54 Hyposegmented Neuts Not Reportable 12/20/21 04:54 Hypogranular Neuts Not Reportable 12/20/21 04:54 Smudge Cells Not Reportable 12/20/21 04:54 Toxic Granulation Not Reportable 12/20/21 04:54 Toxic Vacuolation Not Reportable 12/20/21 04:54 Dohle Bodies Not Reportable 12/20/21 04:54 Pelger-Huet Anomaly Not Reportable 12/20/21 04:54 Irina Rods Not Reportable 12/20/21 04:54 Platelet Estimate Consistent w auto 12/20/21 04:54 Clumped Platelets Not Reportable 12/20/21 04:54 Plt Clumps, EDTA Not Reportable 12/20/21 04:54 Large Platelets Not Reportable 12/20/21 04:54 Giant Platelets Not Reportable 12/20/21 04:54 Platelet Satelliting Not Reportable 12/20/21 04:54 Plt Morphology Comment Not Reportable 12/20/21 04:54 RBC Morphology Not Reportable 12/20/21 04:54 Dimorphic RBCs Not Reportable 12/20/21 04:54 Polychromasia Not Reportable 12/20/21 04:54 Hypochromasia Not Reportable 12/20/21 04:54 Poikilocytosis Not Reportable 12/20/21 04:54 Anisocytosis 1+ 12/20/21 04:54 Microcytosis Not Reportable 12/20/21 04:54 Macrocytosis Not Reportable 12/20/21 04:54 Spherocytes Not Reportable 12/20/21 04:54 Pappenheimer Bodies Not Reportable 12/20/21 04:54 Sickle Cells Not Reportable 12/20/21 04:54 Target Cells Not Reportable 12/20/21 04:54 Tear Drop Cells Not Reportable 12/20/21 04:54 Ovalocytes Not Reportable 12/20/21 04:54 Helmet Cells Not Reportable 12/20/21 04:54 Odonnell-Exira Bodies Not Reportable 12/20/21 04:54 Esopus Rings Not Reportable 12/20/21 04:54 Malcom Cells Not Reportable 12/20/21 04:54 Bite Cells Not Reportable 12/20/21 04:54 Crenated Cell Not Reportable 12/20/21 04:54 Elliptocytes Not Reportable 12/20/21 04:54 Acanthocytes (Spur) Not Reportable 12/20/21 04:54 Rouleaux Not Reportable 12/20/21 04:54 Hemoglobin C Crystals Not Reportable 12/20/21 04:54 Schistocytes Not Reportable 12/20/21 04:54 Malaria parasites Not Reportable 12/20/21 04:54 Godfrey Bodies Not Reportable 12/20/21 04:54 Hem Pathologist Commnt No 12/20/21 04:54 PT 16.9 Sec. (12.2-14.9) H 11/26/21 05:00 INR 1.24 (0.87-1.13) H 11/26/21 05:00 APTT 29.2 Sec. (24.2-36.6) 11/26/21 05:00 D-Dimer 2655.00 ng/mlDDU (0-234) H 11/11/21 04:28 ABG pH 7.479 pH Units (7.350-7.450) H 12/16/21 20:52 ABG pCO2 37.5 mm Hg 12/16/21 20:52 ABG pO2 79.3 mm Hg (80.0-90.0) L 12/16/21 20:52 ABG HCO3 27.3 mmol/L (20.0-26.0) H 12/16/21 20:52 ABG O2 Saturation 97.0 % (95.0-99.0) 12/16/21 20:52 ABG O2 Content 12.3 (0.0-44) 12/16/21 20:52 ABG Base Excess 3.6 mmol/L (-2.0-3.0) H 12/16/21 20:52 ABG Hemoglobin 9.1 gm/dl (12.0-16.0) L 12/16/21 20:52 ABG Carboxyhemoglobin 1.6 % (0.0-5.0) 12/16/21 20:52 ABG Methemoglobin 0.5 % (0.0-1.5) 12/16/21 20:52 Oxyhemoglobin 94.9 % (95.0-99.0) L 12/16/21 20:52 FiO2 30 % 12/16/21 20:52 Sodium 136 mmol/L (137-145) L 12/30/21 04:05 Potassium 3.5 mmol/L (3.6-5.0) L 12/30/21 04:05 Chloride 98.0 mmol/L (98-107) 12/30/21 04:05 Carbon Dioxide 26 mmol/L (22-30) 12/30/21 04:05 Anion Gap 16 mmol/L 12/30/21 04:05 BUN 17 mg/dL (7-17) 12/30/21 04:05 Creatinine 0.4 mg/dL (0.6-1.2) L 12/30/21 04:05 Estimated GFR > 60 ml/min 12/30/21 04:05 BUN/Creatinine Ratio 43 % 12/30/21 04:05 Glucose 97 mg/dL (65-100) 12/30/21 04:05 POC Glucose 79 mg/dL (70-105) 12/30/21 00:20 Lactic Acid 3.70 mmol/L (0.7-2.0) H* 11/03/21 22:32 Calcium 8.5 mg/dL (8.4-10.2) 12/30/21 04:05 Phosphorus 3.80 mg/dL (2.5-4.5) 12/30/21 04:05 Magnesium 1.50 mg/dL (1.7-2.3) L 12/30/21 04:05 Ferritin 52.6 ng/mL (10.0-200.0) 11/05/21 06:11 Total Bilirubin 0.50 mg/dL (0.1-1.2) 11/17/21 05:56 Direct Bilirubin < 0.2 mg/dL (0-0.2) 11/11/21 04:28 Indirect Bilirubin 0.1 mg/dL 11/11/21 04:28 AST 36 units/L (5-40) 11/17/21 05:56 ALT 47 units/L (7-56) 11/17/21 05:56 Alkaline Phosphatase 107 units/L (35-129) 11/17/21 05:56 Ammonia 42.0 umol/L (25-60) 11/10/21 14:08 Lactate Dehydrogenase 187 units/L (91-180) H 11/05/21 06:11 Troponin T 0.045 ng/mL (0.00-0.029) H 11/29/21 20:15 C-Reactive Protein 22.20 mg/dL (0.00-1.30) H 11/05/21 06:11 NT-Pro-B Natriuret Pep 7895 pg/mL (0-900) H 11/03/21 22:32 Total Protein 5.1 g/dL (6.3-8.2) L 11/17/21 05:56 Albumin 2.2 g/dL (3.9-5) L 11/17/21 05:56 Albumin/Globulin Ratio 0.8 % 11/17/21 05:56 Triglycerides 59 mg/dL (2-149) 11/29/21 20:15 Cholesterol 74 mg/dL (50-199) 11/29/21 20:15 LDL Cholesterol Direct 25 mg/dL (50-130) L 11/29/21 20:15 HDL Cholesterol 41 mg/dL (40-59) 11/29/21 20:15 Cholesterol/HDL Ratio 1.80 % 11/29/21 20:15 Vitamin B12 1823 pg/mL (211-911) H 11/10/21 14:08 TSH 1.510 mlU/mL (0.270-4.200) 11/10/21 14:08 Urine Color Yellow (Yellow) 11/11/21 09:00 Urine Turbidity Slightly-cloudy (Clear) 11/11/21 09:00 Urine pH 5.0 (5.0-7.0) 11/11/21 09:00 Ur Specific [place] 1.009 (1.003-1.030) 11/11/21 09:00 Urine Protein <15 mg/dl mg/dL (Negative) 11/11/21 09:00 Urine Glucose (UA) Neg mg/dL (Negative) 11/11/21 09:00 Urine Ketones Neg mg/dL (Negative) 11/11/21 09:00 Urine Blood Mod (Negative) 11/11/21 09:00 Urine Nitrite Neg (Negative) 11/11/21 09:00 Urine Bilirubin Neg (Negative) 11/11/21 09:00 Urine Urobilinogen < 2.0 mg/dL (<2.0) 11/11/21 09:00 Ur Leukocyte Esterase Neg (Negative) 11/11/21 09:00 Urine WBC (Auto) < 1.0 /HPF (0.0-6.0) 11/11/21 09:00 Urine RBC (Auto) < 1.0 /HPF (0.0-6.0) 11/11/21 09:00 Vancomycin Trough 14.4 ug/mL (5.0-20.0) 12/26/21 Unknown Coronavirus (PCR) Negative (Negative) 11/10/21 08:30 Blood Type O POSITIVE 12/14/21 10:30 Antibody Screen Negative 12/14/21 10:30 Crossmatch See Detail 12/14/21 10:30 Sánchez/IV: Voiding Method External Female Catheter Active Medications - Current Medications Current Medications: Generic Name Dose Route Start Last Admin Trade Name Freq PRN Reason Stop Dose Admin Acetaminophen 650 mg 12/14/21 04:12 12/16/21 13:34 Acetaminophen 325 Mg/10.15 Ml Oral Liqd Unit Dose FEEDTUBE 650 mg Q6H PRN Administration Non Cardiac Pain or Temp>100.5 Hydrocodone Bitart/Acetaminophen 1 each 11/21/21 10:00 12/30/21 09:09 Hydrocodone/Acetaminophen 10-325mg Tab FEEDTUBE 1 each TID YOSSI Administration Alprazolam 0.25 mg 12/30/21 09:00 Alprazolam 0.25 Mg Tab FEEDTUBE Q8H PRN Agitation Lipase/Protease/Amylase 1 each 11/08/21 11:09 Lipase 10,500/Protease 25,000/Amylase 43,750 (Units) Dr Cap FEEDTUBE PRN PRN For Clogged Feeding Tube Buspirone HCl 7.5 mg 12/30/21 10:00 12/30/21 09:05 Buspirone 5 Mg Tab FEEDTUBE 7.5 mg BID YOSSI Administration Dextrose 0 ml 11/10/21 10:52 12/30/21 00:48 Dextrose 10% *Hypoglycemia IV 50 ml PRN PRN Administration Hypoglycemia Docusate Sodium 100 mg 12/30/21 10:00 12/30/21 09:10 Docusate Sodium 100 Mg/10 Ml Oral Liqd FEEDTUBE Not Given BID YOSSI Gabapentin 100 mg 12/30/21 10:00 12/30/21 09:06 Gabapentin 100 Mg Cap FEEDTUBE 100 mg QDAY YOSSI Administration Hydromorphone HCl 0.5 mg 12/08/21 20:06 12/29/21 14:45 Hydromorphone 1 Mg/1 Ml Inj IV 0.5 mg Q3H PRN Administration Pain, Moderate (4-6) Hydrophilic Ointment 1 applic 11/06/21 04:02 Lip Therapy Vaseline TP Q2HR PRN Dry Lips Vancomycin HCl 1 gm in 250 mls @ 166.667 mls/hr 12/29/21 17:00 12/29/21 17:10 Vancomycin/Ns 1 Gm/250 Ml IV 01/26/22 18:29 166.667 mls/hr Q24H YOSSI Administration Protocol Magnesium Sulfate 4 gm in 100 mls @ 25 mls/hr 12/30/21 09:00 12/30/21 09:10 Magnesium Sulfate 4gm/100ml IV 12/30/21 12:00 25 mls/hr ONCE@0900 YOSSI Administration Lansoprazole 30 mg 11/24/21 22:00 12/30/21 09:11 Lansoprazole 30 Mg Solutab FEEDTUBE 30 mg BID YOSSI Administration Levothyroxine Sodium 125 mcg 12/31/21 06:00 Levothyroxine 125 Mcg Tab FEEDTUBE DAILY@0600 [facility] Melatonin 5 mg 12/05/21 22:00 12/29/21 21:53 Melatonin 5 Mg Tab PO 5 mg QHS YOSSI Administration Metoclopramide HCl 5 mg 12/27/21 14:00 12/30/21 05:44 Metoclopramide 10 Mg/2 Ml Inj IV 5 mg Q8H YOSSI Administration Metoprolol Tartrate 6.25 mg 12/30/21 10:00 12/30/21 09:11 Metoprolol Tartrate 25 Mg Tab FEEDTUBE Not Given BID [facility] Midodrine 5 mg 12/30/21 09:00 12/30/21 09:09 Midodrine 5 Mg Tab FEEDTUBE 5 mg TID@0800,1200,1600 [facility] Administration Multi-Ingred Cream/Lotion/Oil/Oint 1 applic 11/06/21 04:02 Mineral Oil/Petrolatum, White Ophth Oint 3.5 Gm OU Q4HR PRN Dry Eye(s) Nitroglycerin 0.4 mg 11/30/21 11:36 Nitroglycerin 0.4 Mg Tab Subl SL .Q5MIN PRN Chest Pain Ondansetron HCl 4 mg 12/05/21 10:00 12/27/21 16:04 Ondansetron 4 Mg/2 Ml Inj IV 4 mg Q8H PRN Administration Nausea And Vomiting Polyethylene Glycol 17 gm 12/30/21 10:00 12/30/21 09:11 Polyethylene Glycol 3350 17 Gm Powder FEEDTUBE Not Given QDAY [facility] Potassium Chloride 40 meq 12/30/21 09:00 12/30/21 09:05 Potassium Chloride 20 Meq Packet FEEDTUBE 12/30/21 12:00 40 meq ONCE@0900 YOSSI Administration Pravastatin Sodium 20 mg 12/30/21 22:00 Pravastatin 20 Mg Tab FEEDTUBE QHS YOSSI Quetiapine Fumarate 75 mg 12/30/21 22:00 Quetiapine 25 Mg Tab FEEDTUBE QHS YOSSI Quetiapine Fumarate 25 mg 12/30/21 10:00 12/30/21 09:06 Quetiapine 25 Mg Tab FEEDTUBE 25 mg QAM YOSSI Administration Senna 17.6 mg 12/29/21 11:00 12/30/21 09:11 Sennosides Oral Liqd 8.8 Mg/5 Ml Oral Liqd FEEDTUBE Not Given Q12HR YOSSI Simple Syrup 15 ml 11/08/21 11:09 Simple Syrup 15 Ml FEEDTUBE PRN PRN Hypoglycemia Simple Syrup 30 ml 11/08/21 11:09 Simple Syrup 15 Ml FEEDTUBE PRN PRN Hypoglycemia Sodium Bicarbonate 325 mg 11/08/21 11:09 Sodium Bicarbonate 325 Mg Tab FEEDTUBE PRN PRN For Clogged Feeding Tube Sodium Chloride 10 ml 11/04/21 10:00 12/30/21 09:12 Sodium Chloride 0.9% 10 Ml Flush Syringe IV 10 ml BID YOSSI Administration Sodium Chloride 10 ml 11/04/21 02:03 Sodium Chloride 0.9% 10 Ml Flush Syringe IV PRN PRN LINE FLUSH Spironolactone 25 mg 12/30/21 10:00 12/30/21 09:06 Spironolactone 25 Mg Tab FEEDTUBE 25 mg QDAY YOSSI Administration Sucralfate 1 gm 12/30/21 12:00 Sucralfate 1 Gm/10 Ml Oral Liqd FEEDTUBE Q6HR YOSSI Trazodone HCl 50 mg 12/04/21 22:00 12/29/21 21:53 Trazodone 50 Mg Tab PO 50 mg QHS YOSSI Administration Nutrition/Malnutrition Assess - Dietary Evaluation Nutrition/Malnutrition Findings: Nutrition Notes Start: 11/04/21 17:16 Freq: Status: Active Protocol: Document 12/26/21 16:55 YOVANI (Rec: 12/26/21 16:56 VISHALALL [id number]) Nutrition Notes Initial or Follow up Brief Note Current Diet TF - Vital AF 1.2 at 45ml/hr Subjective/Other Information Per RN, pt tolerating TF at goal rate of 45ml/hr. Pt remains on vent support. Nutrition Intervention Follow-Up By: 01/02/22 Additional Comments F/U: stable TF, vent status, wt <LEAH ALFONSO - Last Filed: 12/31/21 07:25> Assessment and Plan Assessment and plan: I saw and evaluated the patient. I agree with the findings and the plan of care as documented in the Nurse Practitioner's~note, with the following corrections and additions. Hospitalist Physical - Constitutional Vitals: Temp Pulse Resp BP Pulse Ox 98.8 F 78 17 107/52 100 12/31/21 04:00 12/31/21 06:00 12/31/21 06:00 12/31/21 06:00 12/31/21 06:00 HEART Score - HEART Score Troponin: Troponin T 0.045 ng/mL (0.00-0.029) H 11/29/21 20:15 Results - Labs CBC & Chem 7: 12/31/21 04:00 12/31/21 04:00 Labs: Laboratory Last Values WBC 10.8 K/mm3 (4.5-11.0) 12/31/21 04:00 RBC 3.05 M/mm3 (3.65-5.03) L 12/31/21 04:00 Hgb 8.5 gm/dl (10.1-14.3) L 12/31/21 04:00 Hct 25.5 % (30.3-42.9) L 12/31/21 04:00 MCV 84 fl (79-97) 12/31/21 04:00 MCH 28 pg (28-32) 12/31/21 04:00 MCHC 34 % (30-34) 12/31/21 04:00 RDW 18.2 % (13.2-15.2) H 12/31/21 04:00 Plt Count 258 K/mm3 (140-440) 12/31/21 04:00 Add Manual Diff Complete 12/20/21 04:54 Total Counted 100 12/20/21 04:54 Seg Neutrophils % [employer] 11/06/21 15:50 Seg Neuts % (Manual) 88.0 % (40.0-70.0) H 12/20/21 04:54 Band Neutrophils % 0 % 12/20/21 04:54 Lymphocytes % (Manual) 6.0 % (13.4-35.0) L 12/20/21 04:54 Reactive Lymphs % (Man) 0 % 12/20/21 04:54 Monocytes % (Manual) 5.0 % (0.0-7.3) 12/20/21 04:54 Eosinophils % (Manual) 1.0 % (0.0-4.3) 12/20/21 04:54 Basophils % (Manual) 0 % (0.0-1.8) 12/20/21 04:54 Metamyelocytes % 0 % 12/20/21 04:54 Myelocytes % 0 % 12/20/21 04:54 Promyelocytes % 0 % 12/20/21 04:54 Blast Cells % 0 % 12/20/21 04:54 Nucleated RBC % Not Reportable 12/20/21 04:54 Seg Neutrophils # Man 10.8 K/mm3 (1.8-7.7) H 12/20/21 04:54 Band Neutrophils # 0.0 K/mm3 12/20/21 04:54 Lymphocytes # (Manual) 0.7 K/mm3 (1.2-5.4) L 12/20/21 04:54 Abs React Lymphs (Man) 0.0 K/mm3 12/20/21 04:54 Monocytes # (Manual) 0.6 K/mm3 (0.0-0.8) 12/20/21 04:54 Eosinophils # (Manual) 0.1 K/mm3 (0.0-0.4) 12/20/21 04:54 Basophils # (Manual) 0.0 K/mm3 (0.0-0.1) 12/20/21 04:54 Metamyelocytes # 0.0 K/mm3 12/20/21 04:54 Myelocytes # 0.0 K/mm3 12/20/21 04:54 Promyelocytes # 0.0 K/mm3 12/20/21 04:54 Blast Cells # 0.0 K/mm3 12/20/21 04:54 WBC Morphology Not Reportable 12/20/21 04:54 Hypersegmented Neuts Not Reportable 12/20/21 04:54 Hyposegmented Neuts Not Reportable 12/20/21 04:54 Hypogranular Neuts Not Reportable 12/20/21 04:54 Smudge Cells Not Reportable 12/20/21 04:54 Toxic Granulation Not Reportable 12/20/21 04:54 Toxic Vacuolation Not Reportable 12/20/21 04:54 Dohle Bodies Not Reportable 12/20/21 04:54 Pelger-Huet Anomaly Not Reportable 12/20/21 04:54 Irina Rods Not Reportable 12/20/21 04:54 Platelet Estimate Consistent w auto 12/20/21 04:54 Clumped Platelets Not Reportable 12/20/21 04:54 Plt Clumps, EDTA Not Reportable 12/20/21 04:54 Large Platelets Not Reportable 12/20/21 04:54 Giant Platelets Not Reportable 12/20/21 04:54 Platelet Satelliting Not Reportable 12/20/21 04:54 Plt Morphology Comment Not Reportable 12/20/21 04:54 RBC Morphology Not Reportable 12/20/21 04:54 Dimorphic RBCs Not Reportable 12/20/21 04:54 Polychromasia Not Reportable 12/20/21 04:54 Hypochromasia Not Reportable 12/20/21 04:54 Poikilocytosis Not Reportable 12/20/21 04:54 Anisocytosis 1+ 12/20/21 04:54 Microcytosis Not Reportable 12/20/21 04:54 Macrocytosis Not Reportable 12/20/21 04:54 Spherocytes Not Reportable 12/20/21 04:54 Pappenheimer Bodies Not Reportable 12/20/21 04:54 Sickle Cells Not Reportable 12/20/21 04:54 Target Cells Not Reportable 12/20/21 04:54 Tear Drop Cells Not Reportable 12/20/21 04:54 Ovalocytes Not Reportable 12/20/21 04:54 Helmet Cells Not Reportable 12/20/21 04:54 Odonnell-Exira Bodies Not Reportable 12/20/21 04:54 Esopus Rings Not Reportable 12/20/21 04:54 Malcom Cells Not Reportable 12/20/21 04:54 Bite Cells Not Reportable 12/20/21 04:54 Crenated Cell Not Reportable 12/20/21 04:54 Elliptocytes Not Reportable 12/20/21 04:54 Acanthocytes (Spur) Not Reportable 12/20/21 04:54 Rouleaux Not Reportable 12/20/21 04:54 Hemoglobin C Crystals Not Reportable 12/20/21 04:54 Schistocytes Not Reportable 12/20/21 04:54 Malaria parasites Not Reportable 12/20/21 04:54 Godfrey Bodies Not Reportable 12/20/21 04:54 Hem Pathologist Commnt No 12/20/21 04:54 PT 16.9 Sec. (12.2-14.9) H 11/26/21 05:00 INR 1.24 (0.87-1.13) H 11/26/21 05:00 APTT 29.2 Sec. (24.2-36.6) 11/26/21 05:00 D-Dimer 2655.00 ng/mlDDU (0-234) H 11/11/21 04:28 ABG pH 7.479 pH Units (7.350-7.450) H 12/16/21 20:52 ABG pCO2 37.5 mm Hg 12/16/21 20:52 ABG pO2 79.3 mm Hg (80.0-90.0) L 12/16/21 20:52 ABG HCO3 27.3 mmol/L (20.0-26.0) H 12/16/21 20:52 ABG O2 Saturation 97.0 % (95.0-99.0) 12/16/21 20:52 ABG O2 Content 12.3 (0.0-44) 12/16/21 20:52 ABG Base Excess 3.6 mmol/L (-2.0-3.0) H 12/16/21 20:52 ABG Hemoglobin 9.1 gm/dl (12.0-16.0) L 12/16/21 20:52 ABG Carboxyhemoglobin 1.6 % (0.0-5.0) 12/16/21 20:52 ABG Methemoglobin 0.5 % (0.0-1.5) 12/16/21 20:52 Oxyhemoglobin 94.9 % (95.0-99.0) L 12/16/21 20:52 FiO2 30 % 12/16/21 20:52 Sodium 137 mmol/L (137-145) 12/31/21 04:00 Potassium 4.0 mmol/L (3.6-5.0) 12/31/21 04:00 Chloride 98.6 mmol/L (98-107) 12/31/21 04:00 Carbon Dioxide 27 mmol/L (22-30) 12/31/21 04:00 Anion Gap 15 mmol/L 12/31/21 04:00 BUN 19 mg/dL (7-17) H 12/31/21 04:00 Creatinine 0.4 mg/dL (0.6-1.2) L 12/31/21 04:00 Estimated GFR > 60 ml/min 12/31/21 04:00 BUN/Creatinine Ratio 48 % 12/31/21 04:00 Glucose 116 mg/dL (65-100) H 12/31/21 04:00 POC Glucose 121 mg/dL (70-105) H 12/31/21 04:52 Lactic Acid 3.70 mmol/L (0.7-2.0) H* 11/03/21 22:32 Calcium 8.5 mg/dL (8.4-10.2) 12/31/21 04:00 Phosphorus 3.20 mg/dL (2.5-4.5) 12/31/21 04:00 Magnesium 1.90 mg/dL (1.7-2.3) 12/31/21 04:00 Ferritin 52.6 ng/mL (10.0-200.0) 11/05/21 06:11 Total Bilirubin 0.50 mg/dL (0.1-1.2) 11/17/21 05:56 Direct Bilirubin < 0.2 mg/dL (0-0.2) 11/11/21 04:28 Indirect Bilirubin 0.1 mg/dL 11/11/21 04:28 AST 36 units/L (5-40) 11/17/21 05:56 ALT 47 units/L (7-56) 11/17/21 05:56 Alkaline Phosphatase 107 units/L (35-129) 11/17/21 05:56 Ammonia 42.0 umol/L (25-60) 11/10/21 14:08 Lactate Dehydrogenase 187 units/L (91-180) H 11/05/21 06:11 Troponin T 0.045 ng/mL (0.00-0.029) H 11/29/21 20:15 C-Reactive Protein 22.20 mg/dL (0.00-1.30) H 11/05/21 06:11 NT-Pro-B Natriuret Pep 7895 pg/mL (0-900) H 11/03/21 22:32 Total Protein 5.1 g/dL (6.3-8.2) L 11/17/21 05:56 Albumin 2.2 g/dL (3.9-5) L 11/17/21 05:56 Albumin/Globulin Ratio 0.8 % 11/17/21 05:56 Triglycerides 59 mg/dL (2-149) 11/29/21 20:15 Cholesterol 74 mg/dL (50-199) 11/29/21 20:15 LDL Cholesterol Direct 25 mg/dL (50-130) L 11/29/21 20:15 HDL Cholesterol 41 mg/dL (40-59) 11/29/21 20:15 Cholesterol/HDL Ratio 1.80 % 11/29/21 20:15 Vitamin B12 1823 pg/mL (211-911) H 11/10/21 14:08 TSH 1.510 mlU/mL (0.270-4.200) 11/10/21 14:08 Urine Color Yellow (Yellow) 11/11/21 09:00 Urine Turbidity Slightly-cloudy (Clear) 11/11/21 09:00 Urine pH 5.0 (5.0-7.0) 11/11/21 09:00 Ur Specific [place] 1.009 (1.003-1.030) 11/11/21 09:00 Urine Protein <15 mg/dl mg/dL (Negative) 11/11/21 09:00 Urine Glucose (UA) Neg mg/dL (Negative) 11/11/21 09:00 Urine Ketones Neg mg/dL (Negative) 11/11/21 09:00 Urine Blood Mod (Negative) 11/11/21 09:00 Urine Nitrite Neg (Negative) 11/11/21 09:00 Urine Bilirubin Neg (Negative) 11/11/21 09:00 Urine Urobilinogen < 2.0 mg/dL (<2.0) 11/11/21 09:00 Ur Leukocyte Esterase Neg (Negative) 11/11/21 09:00 Urine WBC (Auto) < 1.0 /HPF (0.0-6.0) 11/11/21 09:00 Urine RBC (Auto) < 1.0 /HPF (0.0-6.0) 11/11/21 09:00 Vancomycin Trough 14.4 ug/mL (5.0-20.0) 12/26/21 Unknown Coronavirus (PCR) Negative (Negative) 11/10/21 08:30 Blood Type O POSITIVE 12/14/21 10:30 Antibody Screen Negative 12/14/21 10:30 Crossmatch See Detail 12/14/21 10:30 Sánchez/IV: Voiding Method External Female Catheter Active Medications - Current Medications Current Medications: Generic Name Dose Route Start Last Admin Trade Name Freq PRN Reason Stop Dose Admin Acetaminophen 650 mg 12/14/21 04:12 12/16/21 13:34 Acetaminophen 325 Mg/10.15 Ml Oral Liqd Unit Dose FEEDTUBE 650 mg Q6H PRN Administration Non Cardiac Pain or Temp>100.5 Hydrocodone Bitart/Acetaminophen 1 each 11/21/21 10:00 12/30/21 21:27 Hydrocodone/Acetaminophen 10-325mg Tab FEEDTUBE 1 each TID YOSSI Administration Alprazolam 0.25 mg 12/30/21 09:00 12/30/21 21:28 Alprazolam 0.25 Mg Tab FEEDTUBE 0.25 mg Q8H PRN Administration Agitation Lipase/Protease/Amylase 1 each 11/08/21 11:09 Lipase 10,500/Protease 25,000/Amylase 43,750 (Units) Cap FEEDTUBE PRN PRN For Clogged Feeding Tube Buspirone HCl 7.5 mg 12/30/21 10:00 12/30/21 21:30 Buspirone 5 Mg Tab FEEDTUBE 7.5 mg BID YOSSI Administration Dextrose 0 ml 11/10/21 10:52 12/30/21 00:48 Dextrose 10% *Hypoglycemia IV 50 ml PRN PRN Administration Hypoglycemia Docusate Sodium 100 mg 12/30/21 10:00 12/30/21 21:32 Docusate Sodium 100 Mg/10 Ml Oral Liqd FEEDTUBE Not Given BID YOSSI Gabapentin 100 mg 12/30/21 10:00 12/30/21 09:06 Gabapentin 100 Mg Cap FEEDTUBE 100 mg QDAY YOSSI Administration Hydromorphone HCl 0.5 mg 12/08/21 20:06 12/29/21 14:45 Hydromorphone 1 Mg/1 Ml Inj IV 0.5 mg Q3H PRN Administration Pain, Moderate (4-6) Hydrophilic Ointment 1 applic 11/06/21 04:02 Lip Therapy Vaseline TP Q2HR PRN Dry Lips Vancomycin HCl 1 gm in 250 mls @ 166.667 mls/hr 12/29/21 17:00 12/30/21 19:20 Vancomycin/Ns 1 Gm/250 Ml IV 01/26/22 18:29 166.667 mls/hr Q24H YOSSI Administration Protocol Lansoprazole 30 mg 11/24/21 22:00 12/30/21 21:29 Lansoprazole 30 Mg Solutab FEEDTUBE 30 mg BID YOSSI Administration Levothyroxine Sodium 125 mcg 12/31/21 06:00 12/31/21 05:02 Levothyroxine 125 Mcg Tab FEEDTUBE 125 mcg DAILY@0600 [facility] Administration Melatonin 5 mg 12/05/21 22:00 12/30/21 21:28 Melatonin 5 Mg Tab PO 5 mg QHS [facility] Administration Metoclopramide HCl 5 mg 12/27/21 14:00 12/31/21 05:01 Metoclopramide 10 Mg/2 Ml Inj IV 5 mg Q8H [facility] Administration Metoprolol Tartrate 6.25 mg 12/30/21 10:00 12/30/21 21:29 Metoprolol Tartrate 25 Mg Tab FEEDTUBE 6.25 mg BID [facility] Administration Midodrine 5 mg 12/30/21 09:00 12/30/21 17:59 Midodrine 5 Mg Tab FEEDTUBE Not Given TID@0800,1200,1600 [facility] Multi-Ingred Cream/Lotion/Oil/Oint 1 applic 11/06/21 04:02 Mineral Oil/Petrolatum, White Ophth Oint 3.5 Gm OU Q4HR PRN Dry Eye(s) Nitroglycerin 0.4 mg 11/30/21 11:36 Nitroglycerin 0.4 Mg Tab Subl SL .Q5MIN PRN Chest Pain Ondansetron HCl 4 mg 12/05/21 10:00 12/30/21 21:54 Ondansetron 4 Mg/2 Ml Inj IV 4 mg Q8H PRN Administration Nausea And Vomiting Polyethylene Glycol 17 gm 12/30/21 10:00 12/30/21 09:11 Polyethylene Glycol 3350 17 Gm Powder FEEDTUBE Not Given QDAY YOSSI Pravastatin Sodium 20 mg 12/30/21 22:00 12/30/21 21:30 Pravastatin 20 Mg Tab FEEDTUBE 20 mg QHS YOSSI Administration Quetiapine Fumarate 25 mg 12/30/21 10:00 12/30/21 09:06 Quetiapine 25 Mg Tab FEEDTUBE 25 mg QAM YOSSI Administration Quetiapine Fumarate 50 mg 12/30/21 22:00 12/30/21 21:29 Quetiapine 25 Mg Tab FEEDTUBE 50 mg QHS YOSSI Administration Senna 17.6 mg 12/29/21 11:00 12/30/21 21:32 Sennosides Oral Liqd 8.8 Mg/5 Ml Oral Liqd FEEDTUBE Not Given Q12HR YOSSI Simple Syrup 15 ml 11/08/21 11:09 Simple Syrup 15 Ml FEEDTUBE PRN PRN Hypoglycemia Simple Syrup 30 ml 11/08/21 11:09 Simple Syrup 15 Ml FEEDTUBE PRN PRN Hypoglycemia Sodium Bicarbonate 325 mg 11/08/21 11:09 Sodium Bicarbonate 325 Mg Tab FEEDTUBE PRN PRN For Clogged Feeding Tube Sodium Chloride 10 ml 11/04/21 10:00 12/30/21 21:31 Sodium Chloride 0.9% 10 Ml Flush Syringe IV 10 ml BID YOSSI Administration Sodium Chloride 10 ml 11/04/21 02:03 Sodium Chloride 0.9% 10 Ml Flush Syringe IV PRN PRN LINE FLUSH Spironolactone 25 mg 12/30/21 10:00 12/30/21 09:06 Spironolactone 25 Mg Tab FEEDTUBE 25 mg QDAY YOSSI Administration Sucralfate 1 gm 12/30/21 12:00 12/31/21 05:01 Sucralfate 1 Gm/10 Ml Oral Liqd FEEDTUBE 1 gm Q6HR YOSSI Administration Trazodone HCl 50 mg 12/04/21 22:00 12/30/21 21:29 Trazodone 50 Mg Tab PO 50 mg QHS YOSSI Administration Nutrition/Malnutrition Assess - Dietary Evaluation Nutrition/Malnutrition Findings: Nutrition Notes Start: 11/04/21 17:16 Freq: Status: Active Protocol: Document 12/26/21 16:55 NHALL (Rec: 12/26/21 16:56 YOVANI [id number]) Nutrition Notes Initial or Follow up Brief Note Current Diet TF - Vital AF 1.2 at 45ml/hr Subjective/Other Information Per RN, pt tolerating TF at goal rate of 45ml/hr. Pt remains on vent support. Nutrition Intervention Follow-Up By: 01/02/22 Additional Comments F/U: stable TF, vent status, wt
[2021-12-30] MEDS: SUCRALFATE 1 GM/10 ML ORAL LIQD FEEDTUBE SCH ×2 (12:54→17:59)
--- NOTE | 2021-12-30 14:11 | Procedure Note ---
Date of procedure: 12/30/21 Pre-op diagnosis: right pleural effusion Post-op diagnosis: same Procedure: US thoracentesis Findings: moderate right pl effusion Anesthesia: local Surgeon: ALEE BETANCOURT Estimated blood loss: none Pathology: none Specimen disposition: discarded Condition: stable Disposition: floor
--- NOTE | 2021-12-30 14:59 | Progress Note ---
Assessment and Plan Severe Sepsis POA vs septic shock- 11/03/2021 blood culture: 2 sets positive for GPC -Repeat cultures positive for MRSA Acute respiratory failure with hypoxia, s/p trach on MVS Acute microcytic anemia Bilateral pneumonia Left pleural effusion Cardiomyopathy EF 30-35% Moderate pulmonary HTN RVSP 49 Acute DVT s/p IVC Anemia Mild hyponatremia Daily SBTs as tolerated. Diagnostic and therapeutic thoracentesis as indicated. get pleural fluid analysis with the next thoracentesis Continue Spironolactone to help with recurrent edema Diuretic therapy as tolerated by renal function and hemodynamics. Monitor renal function Continue to monitor hemoglobin and transfuse as clinically indicated to keep HgB>7g/dL Continue to optimize enteric nutritional support Maintain sleep-wake cycle PT/OT, increase activity Antibiotics per ID - continue to titrate supplemental oxygen to keep SPO2 88-90% - VAP bundle addressed, aspiration precautions, HOB >40 - continue bronchodilators with pulmonary hygiene per RT - continue avoid nephrotoxins, renally dose all medications - Accuchecks with glycemic control per SSI (While critically ill target blood glucose of 140-180 mg/dL; avoid hypoglycemia) - continue to avoid benzodiazepines, reduce the possibility of delirium -trend temperature curve, trend WCC, - Maintenance of sleep-wake cycle, avoid delirium -Stress ulcer prophylaxis (Lansoprazole) -VTE prophyalxis- s/p IVC filter. No anticoagulation 11/18 EGD- Large cratered ulcer in the posterior duodenal bulb about 2 cm in diameter.Visible vessel present. Mild active oozing from the ulcer bed. A total of 3 injections were performed around the ulcer for a total of 2.5 cc of dilute epinephrine and hemostasis was obtained. -mobility, off loading and frequent turning to prevent pressure ulcer -continue with enteric nutritional support via PEG,at goal rate - Continue to monitor hemodynamics closely - continue other care per attending / other consultants COVID SPECIFIC INTERVENTIONS - Negative CONDITION: FAIR PROGNOSIS: GUARDED CODE STATUS: FULL CODE The high probability of a clinically significant, sudden or life-threatening det erioration of the [respiratory, cardiovascular and hematologic] system(s) required my full and direct attention, intervention and personal management. The aggregate critical care time was [33] minutes without overlap. Time includes spent on; [x] Data Review and interpretation [x] Patient assessment and monitoring of vital signs [x] Documentation [x] Medication orders and management Subjective Date of service: 12/30/21 Principal diagnosis: Septic shock; AHRF; Anemia; Pneumonia; pleural effusion; HFrEF; Pulm HTN Interval history: Follow up fro acute hypoxemic resp failure s/p tracheostomy to MVS ; Septic and cardiogenic shock; severe anemia; Patient seen and examined. Vitals, labs, medications, chart and imaging reviewed. Discussed with respiratory and nursing care staff. On full support, not tolerating SBTs. More awake, visiting at the bedside Objective Vital Signs - 12hr 12/30/21 12/30/21 12/30/21 03:00 04:00 04:44 Temperature 98 F Pulse Rate 71 72 Pulse Rate [ 78 From Monitor] Respiratory 14 14 Rate Blood Pressure 80/38 190/136 O2 Sat by Pulse 100 99 Oximetry O2 Sat by Pulse 96 Oximetry [ Assessment] 12/30/21 12/30/21 12/30/21 04:45 05:00 06:00 Temperature Pulse Rate 80 82 84 Pulse Rate [ From Monitor] Respiratory 13 14 Rate Blood Pressure 76/42 83/61 O2 Sat by Pulse 96 97 93 Oximetry O2 Sat by Pulse Oximetry [ Assessment] 12/30/21 12/30/21 12/30/21 07:00 08:00 08:08 Temperature Pulse Rate 73 75 66 Pulse Rate [ From Monitor] Respiratory 9 L 11 L Rate Blood Pressure 92/54 85/45 102/41 O2 Sat by Pulse 100 100 98 Oximetry O2 Sat by Pulse Oximetry [ Assessment] 12/30/21 12/30/21 12/30/21 08:15 09:00 10:00 Temperature Pulse Rate 69 88 Pulse Rate [ From Monitor] Respiratory 19 26 H Rate Blood Pressure 87/50 95/56 O2 Sat by Pulse 100 100 Oximetry O2 Sat by Pulse 98 Oximetry [ Assessment] 12/30/21 12/30/21 12/30/21 11:00 12:01 12:20 Temperature Pulse Rate 90 71 86 Pulse Rate [ From Monitor] Respiratory 26 H 14 Rate Blood Pressure 96/68 95/48 95/48 O2 Sat by Pulse 98 97 95 Oximetry O2 Sat by Pulse Oximetry [ Assessment] 12/30/21 12/30/21 13:01 14:01 Temperature Pulse Rate 73 84 Pulse Rate [ From Monitor] Respiratory 14 16 Rate Blood Pressure 98/56 134/52 O2 Sat by Pulse 100 99 Oximetry O2 Sat by Pulse Oximetry [ Assessment] Constitutional: alert, appears uncomfortable (restless really), other (trach to MVS, frail elderly woman with mildly increased respiratory effort at rest) Eyes: non-icteric ENT: oropharynx moist, other (+ Midline tracheostomy with minimal secretions) Neck: supple, no lymphadenopathy, no JVD Effort: mildly labored Ascultation: Bilateral: diminished breath sounds, rhonchi, other (Right chest tube) Percussion: Bilateral: not dull Cardiovascular: regular rate and rhythm, other (S1,S2) Gastrointestinal: normoactive bowel sounds, soft, non-tender, non-distended (protuberant) Integumentary: normal Extremities: no cyanosis, pink and warm, pulses normal, edema (upper etremities) Neurologic: non-focal exam (grossly), pupils equal and round, motor strength normal and Psychiatric: affect normal CBC and BMP: 01/06/22 04:06 01/10/22 04:00 ABG, PT/INR, D-dimer: ABG ABG pH 7.479 pH Units (7.350-7.450) H 12/16/21 20:52 ABG pCO2 37.5 mm Hg 12/16/21 20:52 ABG pO2 79.3 mm Hg (80.0-90.0) L 12/16/21 20:52 ABG O2 Saturation 97.0 % (95.0-99.0) 12/16/21 20:52 PT/INR, D-dimer PT 16.9 Sec. (12.2-14.9) H 11/26/21 05:00 INR 1.24 (0.87-1.13) H 11/26/21 05:00 D-Dimer 2655.00 ng/mlDDU (0-234) H 11/11/21 04:28 Abnormal lab findings: Abnormal Labs 11/03/21 11/03/21 11/03/21 22:32 22:32 22:32 WBC 29.3 H RBC 2.93 L Hgb 6.1 L Hct 21.9 L MCV 75 L MCH 21 L MCHC 28 L RDW 19.7 H Plt Count Seg Neuts % (Manual) 97.0 H Lymphocytes % (Manual) 3.0 L Seg Neutrophils # Man 28.4 H Lymphocytes # (Manual) 0.9 L Monocytes # (Manual) PT 18.6 H INR 1.40 H D-Dimer ABG pH ABG pO2 ABG HCO3 ABG O2 Saturation ABG Base Excess ABG Hemoglobin Oxyhemoglobin Sodium Potassium Chloride Carbon Dioxide 20 L BUN 33 H Creatinine Glucose 119 H POC Glucose Lactic Acid Calcium 8.3 L Phosphorus Magnesium AST ALT Alkaline Phosphatase Lactate Dehydrogenase Troponin T 0.035 H C-Reactive Protein NT-Pro-B Natriuret Pep Total Protein Albumin LDL Cholesterol Direct 34 L Vitamin B12 Crossmatch 11/03/21 11/03/21 11/03/21 22:32 22:32 23:57 WBC RBC Hgb Hct MCV MCH MCHC RDW Plt Count Seg Neuts % (Manual) Lymphocytes % (Manual) Seg Neutrophils # Man Lymphocytes # (Manual) Monocytes # (Manual) PT INR D-Dimer ABG pH ABG pO2 ABG HCO3 ABG O2 Saturation ABG Base Excess ABG Hemoglobin Oxyhemoglobin Sodium Potassium Chloride Carbon Dioxide BUN Creatinine Glucose POC Glucose Lactic Acid 3.70 H* Calcium Phosphorus Magnesium AST ALT Alkaline Phosphatase 139 H Lactate Dehydrogenase Troponin T C-Reactive Protein NT-Pro-B Natriuret Pep 7895 H Total Protein Albumin 3.5 L LDL Cholesterol Direct Vitamin B12 Crossmatch See Detail 11/04/21 11/04/21 11/05/21 00:59 13:58 00:51 WBC 27.9 H RBC 3.28 L Hgb 7.3 L Hct 25.5 L MCV 78 L MCH 22 L MCHC 29 L RDW 19.1 H Plt Count Seg Neuts % (Manual) 96.0 H Lymphocytes % (Manual) 2.0 L Seg Neutrophils # Man 26.8 H Lymphocytes # (Manual) 0.6 L Monocytes # (Manual) PT INR D-Dimer ABG pH ABG pO2 ABG HCO3 ABG O2 Saturation ABG Base Excess ABG Hemoglobin Oxyhemoglobin Sodium Potassium Chloride Carbon Dioxide BUN Creatinine Glucose POC Glucose Lactic Acid Calcium Phosphorus Magnesium AST ALT Alkaline Phosphatase Lactate Dehydrogenase Troponin T 0.051 H D 0.032 H D C-Reactive Protein NT-Pro-B Natriuret Pep Total Protein Albumin LDL Cholesterol Direct Vitamin B12 Crossmatch 11/05/21 11/05/21 11/05/21 06:11 06:11 06:11 WBC 31.8 H RBC 3.57 L Hgb 8.0 L Hct 27.7 L MCV 78 L MCH 22 L MCHC 29 L RDW 19.2 H Plt Count Seg Neuts % (Manual) 91.0 H Lymphocytes % (Manual) 4.5 L Seg Neutrophils # Man 28.9 H Lymphocytes # (Manual) Monocytes # (Manual) 1.1 H PT INR D-Dimer 1494.53 H ABG pH ABG pO2 ABG HCO3 ABG O2 Saturation ABG Base Excess ABG Hemoglobin Oxyhemoglobin Sodium Potassium Chloride Carbon Dioxide 19 L BUN 42 H Creatinine Glucose 115 H POC Glucose Lactic Acid Calcium Phosphorus Magnesium AST 43 H ALT Alkaline Phosphatase Lactate Dehydrogenase 187 H Troponin T C-Reactive Protein 22.20 H NT-Pro-B Natriuret Pep Total Protein 6.0 L Albumin 3.2 L LDL Cholesterol Direct Vitamin B12 Crossmatch 11/05/21 11/05/21 11/06/21 06:11 12:15 00:30 WBC RBC Hgb Hct MCV MCH MCHC RDW Plt Count Seg Neuts % (Manual) Lymphocytes % (Manual) Seg Neutrophils # Man Lymphocytes # (Manual) Monocytes # (Manual) PT INR D-Dimer ABG pH ABG pO2 ABG HCO3 ABG O2 Saturation ABG Base Excess ABG Hemoglobin Oxyhemoglobin Sodium Potassium Chloride Carbon Dioxide BUN Creatinine Glucose POC Glucose 113 H 69 L Lactic Acid Calcium Phosphorus Magnesium AST ALT Alkaline Phosphatase Lactate Dehydrogenase Troponin T 0.033 H C-Reactive Protein NT-Pro-B Natriuret Pep Total Protein Albumin LDL Cholesterol Direct Vitamin B12 Crossmatch 11/06/21 11/06/21 11/06/21 05:50 15:50 15:50 WBC 25.5 H RBC 3.62 L Hgb 8.0 L Hct 27.5 L MCV 76 L MCH 22 L MCHC 29 L RDW 19.6 H Plt Count Seg Neuts % (Manual) 92.0 H Lymphocytes % (Manual) 5.0 L Seg Neutrophils # Man 23.5 H Lymphocytes # (Manual) Monocytes # (Manual) PT INR D-Dimer ABG pH 7.305 L ABG pO2 ABG HCO3 15.8 L ABG O2 Saturation ABG Base Excess -9.6 L ABG Hemoglobin 8.6 L Oxyhemoglobin 94.6 L Sodium Potassium Chloride 113.9 H Carbon Dioxide 17 L BUN 56 H Creatinine Glucose 114 H POC Glucose Lactic Acid Calcium 7.9 L Phosphorus Magnesium AST 1410 H ALT 934 H Alkaline Phosphatase 142 H Lactate Dehydrogenase Troponin T C-Reactive Protein NT-Pro-B Natriuret Pep Total Protein 5.0 L Albumin 2.6 L LDL Cholesterol Direct Vitamin B12 Crossmatch 11/07/21 11/07/21 11/07/21 03:30 04:50 08:07 WBC RBC Hgb Hct MCV MCH MCHC RDW Plt Count Seg Neuts % (Manual) Lymphocytes % (Manual) Seg Neutrophils # Man Lymphocytes # (Manual) Monocytes # (Manual) PT INR D-Dimer ABG pH ABG pO2 296.9 H ABG HCO3 18.1 L ABG O2 Saturation 99.5 H ABG Base Excess -5.9 L ABG Hemoglobin 7.6 L Oxyhemoglobin Sodium Potassium Chloride Carbon Dioxide BUN Creatinine Glucose POC Glucose 106 H 108 H Lactic Acid Calcium Phosphorus Magnesium AST ALT Alkaline Phosphatase Lactate Dehydrogenase Troponin T C-Reactive Protein NT-Pro-B Natriuret Pep Total Protein Albumin LDL Cholesterol Direct Vitamin B12 Crossmatch 11/08/21 11/08/21 11/08/21 03:10 18:05 23:43 WBC RBC Hgb Hct MCV MCH MCHC RDW Plt Count Seg Neuts % (Manual) Lymphocytes % (Manual) Seg Neutrophils # Man Lymphocytes # (Manual) Monocytes # (Manual) PT INR D-Dimer ABG pH ABG pO2 127.4 H ABG HCO3 ABG O2 Saturation ABG Base Excess -3.4 L ABG Hemoglobin 7.4 L Oxyhemoglobin Sodium Potassium Chloride Carbon Dioxide BUN Creatinine Glucose POC Glucose 113 H 141 H Lactic Acid Calcium Phosphorus Magnesium AST ALT Alkaline Phosphatase Lactate Dehydrogenase Troponin T C-Reactive Protein NT-Pro-B Natriuret Pep Total Protein Albumin LDL Cholesterol Direct Vitamin B12 Crossmatch 11/08/21 11/08/21 11/09/21 Unknown Unknown 02:00 WBC 14.5 H RBC 3.35 L Hgb 7.5 L 8.1 L Hct 25.4 L 27.6 L MCV 76 L 76 L MCH 23 L 22 L MCHC RDW 19.9 H 19.9 H Plt Count Seg Neuts % (Manual) Lymphocytes % (Manual) Seg Neutrophils # Man Lymphocytes # (Manual) Monocytes # (Manual) PT INR D-Dimer ABG pH ABG pO2 ABG HCO3 ABG O2 Saturation ABG Base Excess ABG Hemoglobin Oxyhemoglobin Sodium 154 H D Potassium 3.3 L Chloride 120.7 H Carbon Dioxide 20 L BUN 38 H Creatinine Glucose POC Glucose Lactic Acid Calcium 8.3 L Phosphorus Magnesium AST ALT Alkaline Phosphatase Lactate Dehydrogenase Troponin T C-Reactive Protein NT-Pro-B Natriuret Pep Total Protein Albumin LDL Cholesterol Direct Vitamin B12 Crossmatch 11/09/21 11/09/21 11/09/21 02:00 02:31 05:12 WBC RBC Hgb Hct MCV MCH MCHC RDW Plt Count Seg Neuts % (Manual) Lymphocytes % (Manual) Seg Neutrophils # Man Lymphocytes # (Manual) Monocytes # (Manual) PT INR D-Dimer ABG pH 7.479 H ABG pO2 121.3 H ABG HCO3 ABG O2 Saturation ABG Base Excess ABG Hemoglobin 7.3 L Oxyhemoglobin Sodium Potassium Chloride 112.5 H Carbon Dioxide BUN 33 H Creatinine Glucose 161 H POC Glucose 135 H Lactic Acid Calcium Phosphorus Magnesium AST 251 H ALT 481 H Alkaline Phosphatase Lactate Dehydrogenase Troponin T C-Reactive Protein NT-Pro-B Natriuret Pep Total Protein 5.0 L Albumin 2.8 L LDL Cholesterol Direct Vitamin B12 Crossmatch 11/09/21 11/09/21 11/09/21 11:33 16:32 23:28 WBC RBC Hgb Hct MCV MCH MCHC RDW Plt Count Seg Neuts % (Manual) Lymphocytes % (Manual) Seg Neutrophils # Man Lymphocytes # (Manual) Monocytes # (Manual) PT INR D-Dimer ABG pH ABG pO2 ABG HCO3 ABG O2 Saturation ABG Base Excess ABG Hemoglobin Oxyhemoglobin Sodium Potassium Chloride Carbon Dioxide BUN Creatinine Glucose POC Glucose 132 H 133 H 143 H Lactic Acid Calcium Phosphorus Magnesium AST ALT Alkaline Phosphatase Lactate Dehydrogenase Troponin T C-Reactive Protein NT-Pro-B Natriuret Pep Total Protein Albumin LDL Cholesterol Direct Vitamin B12 Crossmatch 11/10/21 11/10/21 11/10/21 04:00 04:00 05:35 WBC 16.0 H RBC 3.61 L Hgb 8.0 L Hct 27.1 L MCV 75 L MCH 22 L MCHC RDW 20.4 H Plt Count Seg Neuts % (Manual) Lymphocytes % (Manual) Seg Neutrophils # Man Lymphocytes # (Manual) Monocytes # (Manual) PT INR D-Dimer ABG pH ABG pO2 ABG HCO3 ABG O2 Saturation ABG Base Excess ABG Hemoglobin Oxyhemoglobin Sodium 149 H Potassium Chloride 114.1 H Carbon Dioxide BUN 31 H Creatinine Glucose 148 H POC Glucose 132 H Lactic Acid Calcium 8.2 L Phosphorus Magnesium AST ALT Alkaline Phosphatase Lactate Dehydrogenase Troponin T C-Reactive Protein NT-Pro-B Natriuret Pep Total Protein Albumin LDL Cholesterol Direct Vitamin B12 Crossmatch 11/10/21 11/10/21 11/10/21 11:31 14:08 15:35 WBC RBC Hgb Hct MCV MCH MCHC RDW Plt Count Seg Neuts % (Manual) Lymphocytes % (Manual) Seg Neutrophils # Man Lymphocytes # (Manual) Monocytes # (Manual) PT INR D-Dimer ABG pH ABG pO2 126.6 H ABG HCO3 ABG O2 Saturation ABG Base Excess ABG Hemoglobin 7.4 L Oxyhemoglobin Sodium Potassium Chloride Carbon Dioxide BUN Creatinine Glucose POC Glucose 147 H Lactic Acid Calcium Phosphorus Magnesium AST ALT Alkaline Phosphatase Lactate Dehydrogenase Troponin T C-Reactive Protein NT-Pro-B Natriuret Pep Total Protein Albumin LDL Cholesterol Direct Vitamin B12 1823 H Crossmatch 11/10/21 11/11/21 11/11/21 17:53 00:55 04:28 WBC RBC Hgb Hct MCV MCH MCHC RDW Plt Count Seg Neuts % (Manual) Lymphocytes % (Manual) Seg Neutrophils # Man Lymphocytes # (Manual) Monocytes # (Manual) PT INR D-Dimer ABG pH ABG pO2 ABG HCO3 ABG O2 Saturation ABG Base Excess ABG Hemoglobin Oxyhemoglobin Sodium 149 H Potassium Chloride 112.2 H Carbon Dioxide BUN 34 H Creatinine Glucose 148 H POC Glucose 140 H 145 H Lactic Acid Calcium 7.9 L Phosphorus Magnesium AST 53 H ALT 203 H Alkaline Phosphatase Lactate Dehydrogenase Troponin T C-Reactive Protein NT-Pro-B Natriuret Pep Total Protein 4.9 L Albumin 2.6 L LDL Cholesterol Direct Vitamin B12 Crossmatch 11/11/21 11/11/21 11/11/21 04:28 04:28 05:28 WBC 20.9 H RBC 3.47 L Hgb 7.5 L Hct 26.0 L MCV 75 L MCH 22 L MCHC 29 L RDW 21.6 H Plt Count 132 L Seg Neuts % (Manual) Lymphocytes % (Manual) Seg Neutrophils # Man Lymphocytes # (Manual) Monocytes # (Manual) PT INR D-Dimer 2655.00 H ABG pH ABG pO2 ABG HCO3 ABG O2 Saturation ABG Base Excess ABG Hemoglobin Oxyhemoglobin Sodium Potassium Chloride Carbon Dioxide BUN Creatinine Glucose POC Glucose 154 H Lactic Acid Calcium Phosphorus Magnesium AST ALT Alkaline Phosphatase Lactate Dehydrogenase Troponin T C-Reactive Protein NT-Pro-B Natriuret Pep Total Protein Albumin LDL Cholesterol Direct Vitamin B12 Crossmatch 11/11/21 11/11/21 11/12/21 12:38 18:13 00:14 WBC RBC Hgb Hct MCV MCH MCHC RDW Plt Count Seg Neuts % (Manual) Lymphocytes % (Manual) Seg Neutrophils # Man Lymphocytes # (Manual) Monocytes # (Manual) PT INR D-Dimer ABG pH ABG pO2 ABG HCO3 ABG O2 Saturation ABG Base Excess ABG Hemoglobin Oxyhemoglobin Sodium Potassium Chloride Carbon Dioxide BUN Creatinine Glucose POC Glucose 137 H 108 H 137 H Lactic Acid Calcium Phosphorus Magnesium AST ALT Alkaline Phosphatase Lactate Dehydrogenase Troponin T C-Reactive Protein NT-Pro-B Natriuret Pep Total Protein Albumin LDL Cholesterol Direct Vitamin B12 Crossmatch 11/12/21 11/12/21 11/12/21 05:40 06:24 11:12 WBC RBC Hgb Hct MCV MCH MCHC RDW Plt Count Seg Neuts % (Manual) Lymphocytes % (Manual) Seg Neutrophils # Man Lymphocytes # (Manual) Monocytes # (Manual) PT INR D-Dimer ABG pH 7.586 H ABG pO2 150.6 H ABG HCO3 27.2 H ABG O2 Saturation 99.1 H ABG Base Excess 5.2 H ABG Hemoglobin 7.5 L Oxyhemoglobin Sodium Potassium Chloride Carbon Dioxide BUN Creatinine Glucose POC Glucose 132 H 140 H Lactic Acid Calcium Phosphorus Magnesium AST ALT Alkaline Phosphatase Lactate Dehydrogenase Troponin T C-Reactive Protein NT-Pro-B Natriuret Pep Total Protein Albumin LDL Cholesterol Direct Vitamin B12 Crossmatch 11/12/21 11/12/21 11/12/21 14:50 14:50 17:13 WBC 19.8 H RBC 3.27 L Hgb 7.1 L Hct 24.5 L MCV 75 L MCH 22 L MCHC 29 L RDW 22.3 H Plt Count Seg Neuts % (Manual) Lymphocytes % (Manual) Seg Neutrophils # Man Lymphocytes # (Manual) Monocytes # (Manual) PT INR D-Dimer ABG pH ABG pO2 ABG HCO3 ABG O2 Saturation ABG Base Excess ABG Hemoglobin Oxyhemoglobin Sodium 150 H Potassium 3.3 L Chloride 112.0 H Carbon Dioxide BUN 40 H Creatinine Glucose 151 H POC Glucose 121 H Lactic Acid Calcium 7.4 L Phosphorus 1.70 L Magnesium 1.40 L AST ALT Alkaline Phosphatase Lactate Dehydrogenase Troponin T C-Reactive Protein NT-Pro-B Natriuret Pep Total Protein Albumin LDL Cholesterol Direct Vitamin B12 Crossmatch 11/12/21 11/13/21 11/13/21 23:19 05:34 06:30 WBC RBC Hgb Hct MCV MCH MCHC RDW Plt Count Seg Neuts % (Manual) Lymphocytes % (Manual) Seg Neutrophils # Man Lymphocytes # (Manual) Monocytes # (Manual) PT INR D-Dimer ABG pH ABG pO2 ABG HCO3 ABG O2 Saturation ABG Base Excess ABG Hemoglobin Oxyhemoglobin Sodium 149 H Potassium Chloride 60.0 L Carbon Dioxide BUN 40 H Creatinine Glucose 146 H POC Glucose 113 H 132 H Lactic Acid Calcium 7.3 L Phosphorus Magnesium 2.40 H AST ALT 72 H Alkaline Phosphatase Lactate Dehydrogenase Troponin T C-Reactive Protein NT-Pro-B Natriuret Pep Total Protein 5.2 L Albumin 2.2 L LDL Cholesterol Direct Vitamin B12 Crossmatch 11/13/21 11/13/21 11/13/21 06:30 08:30 11:19 WBC 21.2 H RBC 3.12 L Hgb 6.8 L Hct 23.2 L MCV 74 L MCH 22 L MCHC 29 L RDW 22.2 H Plt Count 135 L Seg Neuts % (Manual) Lymphocytes % (Manual) Seg Neutrophils # Man Lymphocytes # (Manual) Monocytes # (Manual) PT INR D-Dimer ABG pH ABG pO2 ABG HCO3 ABG O2 Saturation ABG Base Excess ABG Hemoglobin Oxyhemoglobin Sodium Potassium Chloride Carbon Dioxide BUN Creatinine Glucose POC Glucose 136 H Lactic Acid Calcium Phosphorus Magnesium AST ALT Alkaline Phosphatase Lactate Dehydrogenase Troponin T C-Reactive Protein NT-Pro-B Natriuret Pep Total Protein Albumin LDL Cholesterol Direct Vitamin B12 Crossmatch See Detail 11/13/21 11/14/21 11/14/21 18:21 00:01 04:46 WBC 20.0 H RBC 3.41 L Hgb 7.9 L Hct 26.8 L MCV MCH 23 L MCHC 29 L RDW 24.0 H Plt Count Seg Neuts % (Manual) Lymphocytes % (Manual) Seg Neutrophils # Man Lymphocytes # (Manual) Monocytes # (Manual) PT INR D-Dimer ABG pH ABG pO2 ABG HCO3 ABG O2 Saturation ABG Base Excess ABG Hemoglobin Oxyhemoglobin Sodium Potassium Chloride Carbon Dioxide BUN Creatinine Glucose POC Glucose 149 H 141 H Lactic Acid Calcium Phosphorus Magnesium AST ALT Alkaline Phosphatase Lactate Dehydrogenase Troponin T C-Reactive Protein NT-Pro-B Natriuret Pep Total Protein Albumin LDL Cholesterol Direct Vitamin B12 Crossmatch 11/14/21 11/14/21 11/14/21 04:46 05:10 11:10 WBC RBC Hgb Hct MCV MCH MCHC RDW Plt Count Seg Neuts % (Manual) Lymphocytes % (Manual) Seg Neutrophils # Man Lymphocytes # (Manual) Monocytes # (Manual) PT INR D-Dimer ABG pH ABG pO2 ABG HCO3 ABG O2 Saturation ABG Base Excess ABG Hemoglobin Oxyhemoglobin Sodium 148 H Potassium Chloride 113.1 H Carbon Dioxide BUN 43 H Creatinine Glucose 140 H POC Glucose 132 H 133 H Lactic Acid Calcium 7.5 L Phosphorus Magnesium AST ALT Alkaline Phosphatase Lactate Dehydrogenase Troponin T C-Reactive Protein NT-Pro-B Natriuret Pep Total Protein Albumin LDL Cholesterol Direct Vitamin B12 Crossmatch 11/14/21 11/14/21 11/14/21 16:14 17:48 23:23 WBC RBC Hgb Hct MCV MCH MCHC RDW Plt Count Seg Neuts % (Manual) Lymphocytes % (Manual) Seg Neutrophils # Man Lymphocytes # (Manual) Monocytes # (Manual) PT INR D-Dimer ABG pH ABG pO2 ABG HCO3 28.0 H ABG O2 Saturation ABG Base Excess 3.1 H ABG Hemoglobin 5.8 L Oxyhemoglobin 94.8 L Sodium Potassium Chloride Carbon Dioxide BUN Creatinine Glucose POC Glucose 130 H 136 H Lactic Acid Calcium Phosphorus Magnesium AST ALT Alkaline Phosphatase Lactate Dehydrogenase Troponin T C-Reactive Protein NT-Pro-B Natriuret Pep Total Protein Albumin LDL Cholesterol Direct Vitamin B12 Crossmatch 11/15/21 11/15/21 11/15/21 05:20 05:50 05:50 WBC 19.9 H RBC 3.50 L Hgb 8.2 L Hct 27.9 L MCV MCH 23 L MCHC 29 L RDW 24.9 H Plt Count Seg Neuts % (Manual) Lymphocytes % (Manual) Seg Neutrophils # Man Lymphocytes # (Manual) Monocytes # (Manual) PT INR D-Dimer ABG pH ABG pO2 ABG HCO3 ABG O2 Saturation ABG Base Excess ABG Hemoglobin Oxyhemoglobin Sodium 149 H Potassium Chloride 112.0 H Carbon Dioxide BUN 48 H Creatinine Glucose 152 H POC Glucose 137 H Lactic Acid Calcium 7.9 L Phosphorus Magnesium AST ALT Alkaline Phosphatase Lactate Dehydrogenase Troponin T C-Reactive Protein NT-Pro-B Natriuret Pep Total Protein Albumin LDL Cholesterol Direct Vitamin B12 Crossmatch 11/15/21 11/15/21 11/15/21 12:12 17:07 23:24 WBC RBC Hgb Hct MCV MCH MCHC RDW Plt Count Seg Neuts % (Manual) Lymphocytes % (Manual) Seg Neutrophils # Man Lymphocytes # (Manual) Monocytes # (Manual) PT INR D-Dimer ABG pH ABG pO2 ABG HCO3 ABG O2 Saturation ABG Base Excess ABG Hemoglobin Oxyhemoglobin Sodium Potassium Chloride Carbon Dioxide BUN Creatinine Glucose POC Glucose 114 H 135 H 123 H Lactic Acid Calcium Phosphorus Magnesium AST ALT Alkaline Phosphatase Lactate Dehydrogenase Troponin T C-Reactive Protein NT-Pro-B Natriuret Pep Total Protein Albumin LDL Cholesterol Direct Vitamin B12 Crossmatch 11/16/21 11/16/21 11/16/21 05:21 10:00 10:00 WBC 21.7 H RBC 2.57 L Hgb 6.0 L Hct 20.2 L D MCV MCH 24 L MCHC RDW 26.3 H Plt Count Seg Neuts % (Manual) Lymphocytes % (Manual) Seg Neutrophils # Man Lymphocytes # (Manual) Monocytes # (Manual) PT INR D-Dimer ABG pH ABG pO2 ABG HCO3 ABG O2 Saturation ABG Base Excess ABG Hemoglobin Oxyhemoglobin Sodium 153 H Potassium Chloride 114.9 H Carbon Dioxide BUN 74 H Creatinine Glucose 155 H POC Glucose 127 H Lactic Acid Calcium 8.1 L Phosphorus Magnesium AST ALT Alkaline Phosphatase Lactate Dehydrogenase Troponin T C-Reactive Protein NT-Pro-B Natriuret Pep Total Protein Albumin LDL Cholesterol Direct Vitamin B12 Crossmatch 11/16/21 11/16/21 11/16/21 11:34 14:00 15:25 WBC 17.2 H RBC 2.08 L Hgb 4.7 L* Hct 16.2 L* MCV 78 L MCH 23 L MCHC 29 L RDW 26.0 H Plt Count Seg Neuts % (Manual) 87.0 H Lymphocytes % (Manual) 8.0 L Seg Neutrophils # Man 15.0 H Lymphocytes # (Manual) Monocytes # (Manual) 0.9 H PT INR D-Dimer ABG pH ABG pO2 ABG HCO3 ABG O2 Saturation ABG Base Excess ABG Hemoglobin Oxyhemoglobin Sodium Potassium Chloride Carbon Dioxide BUN Creatinine Glucose POC Glucose 131 H Lactic Acid Calcium Phosphorus Magnesium AST ALT Alkaline Phosphatase Lactate Dehydrogenase Troponin T C-Reactive Protein NT-Pro-B Natriuret Pep Total Protein Albumin LDL Cholesterol Direct Vitamin B12 Crossmatch See Detail 11/16/21 11/16/21 11/16/21 15:25 17:21 22:43 WBC RBC Hgb 8.6 L D Hct 27.7 L D MCV MCH MCHC RDW Plt Count Seg Neuts % (Manual) Lymphocytes % (Manual) Seg Neutrophils # Man Lymphocytes # (Manual) Monocytes # (Manual) PT INR D-Dimer ABG pH ABG pO2 ABG HCO3 ABG O2 Saturation ABG Base Excess ABG Hemoglobin Oxyhemoglobin Sodium 148 H Potassium Chloride 113.2 H Carbon Dioxide BUN 84 H Creatinine Glucose 164 H POC Glucose 124 H Lactic Acid Calcium 7.6 L Phosphorus Magnesium AST ALT Alkaline Phosphatase Lactate Dehydrogenase Troponin T C-Reactive Protein NT-Pro-B Natriuret Pep Total Protein Albumin LDL Cholesterol Direct Vitamin B12 Crossmatch 11/16/21 11/17/21 11/17/21 23:07 05:33 05:56 WBC 25.1 H RBC 3.47 L Hgb 8.7 L Hct 28.5 L MCV MCH 25 L MCHC RDW 22.3 H Plt Count Seg Neuts % (Manual) Lymphocytes % (Manual) Seg Neutrophils # Man Lymphocytes # (Manual) Monocytes # (Manual) PT INR D-Dimer ABG pH ABG pO2 ABG HCO3 ABG O2 Saturation ABG Base Excess ABG Hemoglobin Oxyhemoglobin Sodium Potassium Chloride Carbon Dioxide BUN Creatinine Glucose POC Glucose 128 H 133 H Lactic Acid Calcium Phosphorus Magnesium AST ALT Alkaline Phosphatase Lactate Dehydrogenase Troponin T C-Reactive Protein NT-Pro-B Natriuret Pep Total Protein Albumin LDL Cholesterol Direct Vitamin B12 Crossmatch 11/17/21 11/17/21 11/17/21 05:56 11:00 11:55 WBC RBC Hgb 8.3 L Hct 26.9 L MCV MCH MCHC RDW Plt Count Seg Neuts % (Manual) Lymphocytes % (Manual) Seg Neutrophils # Man Lymphocytes # (Manual) Monocytes # (Manual) PT INR D-Dimer ABG pH ABG pO2 ABG HCO3 ABG O2 Saturation ABG Base Excess ABG Hemoglobin Oxyhemoglobin Sodium 151 H Potassium Chloride 113.6 H Carbon Dioxide BUN 85 H Creatinine Glucose 132 H POC Glucose 121 H Lactic Acid Calcium 7.8 L Phosphorus Magnesium AST ALT Alkaline Phosphatase Lactate Dehydrogenase Troponin T C-Reactive Protein NT-Pro-B Natriuret Pep Total Protein 5.1 L Albumin 2.2 L LDL Cholesterol Direct Vitamin B12 Crossmatch 11/17/21 11/17/21 11/18/21 18:04 18:55 00:26 WBC RBC Hgb 7.5 L 7.1 L Hct 24.8 L 23.6 L MCV MCH MCHC RDW Plt Count Seg Neuts % (Manual) Lymphocytes % (Manual) Seg Neutrophils # Man Lymphocytes # (Manual) Monocytes # (Manual) PT INR D-Dimer ABG pH ABG pO2 ABG HCO3 ABG O2 Saturation ABG Base Excess ABG Hemoglobin Oxyhemoglobin Sodium Potassium Chloride Carbon Dioxide BUN Creatinine Glucose POC Glucose 144 H Lactic Acid Calcium Phosphorus Magnesium AST ALT Alkaline Phosphatase Lactate Dehydrogenase Troponin T C-Reactive Protein NT-Pro-B Natriuret Pep Total Protein Albumin LDL Cholesterol Direct Vitamin B12 Crossmatch 11/18/21 11/18/21 11/18/21 00:43 05:10 05:10 WBC 12.5 H RBC 2.39 L Hgb 6.1 L Hct 20.2 L MCV MCH 25 L MCHC RDW 23.2 H Plt Count Seg Neuts % (Manual) Lymphocytes % (Manual) Seg Neutrophils # Man Lymphocytes # (Manual) Monocytes # (Manual) PT INR D-Dimer ABG pH ABG pO2 ABG HCO3 ABG O2 Saturation ABG Base Excess ABG Hemoglobin Oxyhemoglobin Sodium 131 L D Potassium 2.9 L* D Chloride 97.8 L Carbon Dioxide BUN 58 H Creatinine Glucose 665 H* POC Glucose 139 H Lactic Acid Calcium 7.0 L Phosphorus 2.20 L D Magnesium 1.50 L AST ALT Alkaline Phosphatase Lactate Dehydrogenase Troponin T C-Reactive Protein NT-Pro-B Natriuret Pep Total Protein Albumin LDL Cholesterol Direct Vitamin B12 Crossmatch 11/18/21 11/18/21 11/18/21 05:23 07:10 10:45 WBC RBC Hgb Hct MCV MCH MCHC RDW Plt Count Seg Neuts % (Manual) Lymphocytes % (Manual) Seg Neutrophils # Man Lymphocytes # (Manual) Monocytes # (Manual) PT INR D-Dimer ABG pH ABG pO2 ABG HCO3 ABG O2 Saturation ABG Base Excess ABG Hemoglobin Oxyhemoglobin Sodium 148 H D Potassium 3.1 L Chloride 111.9 H Carbon Dioxide BUN 63 H Creatinine Glucose 141 H POC Glucose 124 H Lactic Acid Calcium 8.1 L D Phosphorus Magnesium AST ALT Alkaline Phosphatase Lactate Dehydrogenase Troponin T C-Reactive Protein NT-Pro-B Natriuret Pep Total Protein Albumin LDL Cholesterol Direct Vitamin B12 Crossmatch See Detail 11/18/21 11/19/21 11/19/21 11:57 00:19 04:55 WBC RBC 3.35 L Hgb 9.0 L 8.9 L Hct 28.3 L D 28.1 L MCV MCH 27 L MCHC RDW 20.3 H Plt Count Seg Neuts % (Manual) Lymphocytes % (Manual) Seg Neutrophils # Man Lymphocytes # (Manual) Monocytes # (Manual) PT INR D-Dimer ABG pH ABG pO2 ABG HCO3 ABG O2 Saturation ABG Base Excess ABG Hemoglobin Oxyhemoglobin Sodium Potassium Chloride Carbon Dioxide BUN Creatinine Glucose POC Glucose 119 H Lactic Acid Calcium Phosphorus Magnesium AST ALT Alkaline Phosphatase Lactate Dehydrogenase Troponin T C-Reactive Protein NT-Pro-B Natriuret Pep Total Protein Albumin LDL Cholesterol Direct Vitamin B12 Crossmatch 11/19/21 11/19/21 11/20/21 04:55 05:42 00:55 WBC RBC Hgb 9.0 L Hct 28.6 L MCV MCH MCHC RDW Plt Count Seg Neuts % (Manual) Lymphocytes % (Manual) Seg Neutrophils # Man Lymphocytes # (Manual) Monocytes # (Manual) PT INR D-Dimer ABG pH ABG pO2 ABG HCO3 ABG O2 Saturation ABG Base Excess ABG Hemoglobin Oxyhemoglobin Sodium Potassium 3.5 L Chloride 108.6 H Carbon Dioxide BUN 47 H Creatinine Glucose 207 H POC Glucose 63 L Lactic Acid Calcium 7.1 L Phosphorus Magnesium AST ALT Alkaline Phosphatase Lactate Dehydrogenase Troponin T C-Reactive Protein NT-Pro-B Natriuret Pep Total Protein Albumin LDL Cholesterol Direct Vitamin B12 Crossmatch 11/20/21 11/20/21 11/20/21 05:40 05:40 Unknown WBC RBC 3.40 L Hgb 9.1 L Hct 28.8 L MCV MCH 27 L MCHC RDW 20.7 H Plt Count Seg Neuts % (Manual) Lymphocytes % (Manual) Seg Neutrophils # Man Lymphocytes # (Manual) Monocytes # (Manual) PT INR D-Dimer ABG pH ABG pO2 ABG HCO3 ABG O2 Saturation ABG Base Excess -2.7 L ABG Hemoglobin 9.5 L Oxyhemoglobin 94.3 L Sodium Potassium 3.5 L Chloride 108.9 H Carbon Dioxide BUN 37 H Creatinine Glucose 117 H POC Glucose Lactic Acid Calcium 7.5 L Phosphorus Magnesium AST ALT Alkaline Phosphatase Lactate Dehydrogenase Troponin T C-Reactive Protein NT-Pro-B Natriuret Pep Total Protein Albumin LDL Cholesterol Direct Vitamin B12 Crossmatch 11/21/21 11/21/21 11/21/21 04:30 04:30 16:00 WBC RBC 3.25 L Hgb 8.6 L Hct 28.1 L MCV MCH 26 L MCHC RDW 20.7 H Plt Count Seg Neuts % (Manual) Lymphocytes % (Manual) Seg Neutrophils # Man Lymphocytes # (Manual) Monocytes # (Manual) PT INR D-Dimer ABG pH ABG pO2 114.2 H ABG HCO3 ABG O2 Saturation ABG Base Excess ABG Hemoglobin 9.1 L Oxyhemoglobin Sodium 134 L Potassium Chloride Carbon Dioxide 20 L BUN 34 H Creatinine Glucose POC Glucose Lactic Acid Calcium 7.1 L Phosphorus Magnesium AST ALT Alkaline Phosphatase Lactate Dehydrogenase Troponin T C-Reactive Protein NT-Pro-B Natriuret Pep Total Protein Albumin LDL Cholesterol Direct Vitamin B12 Crossmatch 11/22/21 11/22/21 11/22/21 07:07 07:07 23:54 WBC RBC 3.30 L Hgb 9.0 L Hct 28.5 L MCV MCH 27 L MCHC RDW 21.0 H Plt Count Seg Neuts % (Manual) Lymphocytes % (Manual) Seg Neutrophils # Man Lymphocytes # (Manual) Monocytes # (Manual) PT INR D-Dimer ABG pH ABG pO2 ABG HCO3 ABG O2 Saturation ABG Base Excess ABG Hemoglobin Oxyhemoglobin Sodium Potassium Chloride Carbon Dioxide BUN 32 H Creatinine Glucose 106 H POC Glucose 110 H Lactic Acid Calcium 7.5 L Phosphorus Magnesium AST ALT Alkaline Phosphatase Lactate Dehydrogenase Troponin T C-Reactive Protein NT-Pro-B Natriuret Pep Total Protein Albumin LDL Cholesterol Direct Vitamin B12 Crossmatch 11/23/21 11/23/21 11/23/21 04:38 04:38 06:01 WBC RBC 3.23 L Hgb 8.8 L Hct 28.0 L MCV MCH 27 L MCHC RDW 21.3 H Plt Count Seg Neuts % (Manual) Lymphocytes % (Manual) Seg Neutrophils # Man Lymphocytes # (Manual) Monocytes # (Manual) PT INR D-Dimer ABG pH ABG pO2 ABG HCO3 ABG O2 Saturation ABG Base Excess ABG Hemoglobin Oxyhemoglobin Sodium 136 L Potassium Chloride Carbon Dioxide 20 L BUN 32 H Creatinine Glucose 109 H POC Glucose 115 H Lactic Acid Calcium 7.7 L Phosphorus Magnesium AST ALT Alkaline Phosphatase Lactate Dehydrogenase Troponin T C-Reactive Protein NT-Pro-B Natriuret Pep Total Protein Albumin LDL Cholesterol Direct Vitamin B12 Crossmatch 11/23/21 11/24/21 11/24/21 11:40 00:03 04:13 WBC RBC 3.18 L Hgb 8.5 L Hct 27.5 L MCV MCH 27 L MCHC RDW 21.6 H Plt Count Seg Neuts % (Manual) Lymphocytes % (Manual) Seg Neutrophils # Man Lymphocytes # (Manual) Monocytes # (Manual) PT INR D-Dimer ABG pH ABG pO2 ABG HCO3 ABG O2 Saturation ABG Base Excess ABG Hemoglobin Oxyhemoglobin Sodium Potassium Chloride Carbon Dioxide BUN Creatinine Glucose POC Glucose 117 H 111 H Lactic Acid Calcium Phosphorus Magnesium AST ALT Alkaline Phosphatase Lactate Dehydrogenase Troponin T C-Reactive Protein NT-Pro-B Natriuret Pep Total Protein Albumin LDL Cholesterol Direct Vitamin B12 Crossmatch 11/24/21 11/24/21 11/24/21 04:13 05:30 11:10 WBC RBC Hgb Hct MCV MCH MCHC RDW Plt Count Seg Neuts % (Manual) Lymphocytes % (Manual) Seg Neutrophils # Man Lymphocytes # (Manual) Monocytes # (Manual) PT INR D-Dimer ABG pH ABG pO2 ABG HCO3 ABG O2 Saturation ABG Base Excess ABG Hemoglobin Oxyhemoglobin Sodium Potassium Chloride Carbon Dioxide BUN 31 H Creatinine Glucose 101 H POC Glucose 115 H 107 H Lactic Acid Calcium 7.7 L Phosphorus Magnesium AST ALT Alkaline Phosphatase Lactate Dehydrogenase Troponin T C-Reactive Protein NT-Pro-B Natriuret Pep Total Protein Albumin LDL Cholesterol Direct Vitamin B12 Crossmatch 11/24/21 11/24/21 11/25/21 16:34 17:57 05:12 WBC RBC 3.11 L Hgb 8.2 L Hct 26.6 L MCV MCH 26 L MCHC RDW 21.3 H Plt Count Seg Neuts % (Manual) Lymphocytes % (Manual) Seg Neutrophils # Man Lymphocytes # (Manual) Monocytes # (Manual) PT INR D-Dimer ABG pH ABG pO2 ABG HCO3 ABG O2 Saturation ABG Base Excess ABG Hemoglobin Oxyhemoglobin Sodium Potassium Chloride Carbon Dioxide BUN Creatinine Glucose POC Glucose 115 H 110 H Lactic Acid Calcium Phosphorus Magnesium AST ALT Alkaline Phosphatase Lactate Dehydrogenase Troponin T C-Reactive Protein NT-Pro-B Natriuret Pep Total Protein Albumin LDL Cholesterol Direct Vitamin B12 Crossmatch 11/25/21 11/25/21 11/26/21 05:12 11:20 05:00 WBC RBC 3.30 L Hgb 8.8 L Hct 28.2 L MCV MCH 27 L MCHC RDW 20.7 H Plt Count Seg Neuts % (Manual) Lymphocytes % (Manual) Seg Neutrophils # Man Lymphocytes # (Manual) Monocytes # (Manual) PT INR D-Dimer ABG pH ABG pO2 ABG HCO3 ABG O2 Saturation ABG Base Excess ABG Hemoglobin Oxyhemoglobin Sodium Potassium Chloride Carbon Dioxide BUN 32 H Creatinine Glucose 118 H POC Glucose 118 H Lactic Acid Calcium 8.2 L Phosphorus Magnesium AST ALT Alkaline Phosphatase Lactate Dehydrogenase Troponin T C-Reactive Protein NT-Pro-B Natriuret Pep Total Protein Albumin LDL Cholesterol Direct Vitamin B12 Crossmatch 11/26/21 11/26/21 11/26/21 05:00 05:00 05:44 WBC RBC Hgb Hct MCV MCH MCHC RDW Plt Count Seg Neuts % (Manual) Lymphocytes % (Manual) Seg Neutrophils # Man Lymphocytes # (Manual) Monocytes # (Manual) PT 16.9 H INR 1.24 H D-Dimer ABG pH ABG pO2 ABG HCO3 ABG O2 Saturation ABG Base Excess ABG Hemoglobin Oxyhemoglobin Sodium Potassium Chloride Carbon Dioxide BUN 31 H Creatinine Glucose 104 H POC Glucose 110 H Lactic Acid Calcium 7.9 L Phosphorus Magnesium AST ALT Alkaline Phosphatase Lactate Dehydrogenase Troponin T C-Reactive Protein NT-Pro-B Natriuret Pep Total Protein Albumin LDL Cholesterol Direct Vitamin B12 Crossmatch 11/26/21 11/27/21 11/27/21 23:55 07:40 07:40 WBC RBC 3.18 L Hgb 8.5 L Hct 27.0 L MCV MCH 27 L MCHC RDW 21.2 H Plt Count Seg Neuts % (Manual) Lymphocytes % (Manual) Seg Neutrophils # Man Lymphocytes # (Manual) Monocytes # (Manual) PT INR D-Dimer ABG pH ABG pO2 ABG HCO3 ABG O2 Saturation ABG Base Excess ABG Hemoglobin Oxyhemoglobin Sodium Potassium Chloride Carbon Dioxide BUN 27 H Creatinine Glucose 112 H POC Glucose 63 L Lactic Acid Calcium 7.6 L Phosphorus Magnesium AST ALT Alkaline Phosphatase Lactate Dehydrogenase Troponin T C-Reactive Protein NT-Pro-B Natriuret Pep Total Protein Albumin LDL Cholesterol Direct Vitamin B12 Crossmatch 11/27/21 11/27/21 11/27/21 12:04 13:40 13:40 WBC RBC 3.31 L Hgb 8.7 L Hct 28.0 L MCV MCH 26 L MCHC RDW 20.7 H Plt Count Seg Neuts % (Manual) Lymphocytes % (Manual) Seg Neutrophils # Man Lymphocytes # (Manual) Monocytes # (Manual) PT INR D-Dimer ABG pH ABG pO2 ABG HCO3 ABG O2 Saturation ABG Base Excess ABG Hemoglobin Oxyhemoglobin Sodium 136 L Potassium Chloride Carbon Dioxide BUN 25 H Creatinine Glucose 127 H POC Glucose 109 H Lactic Acid Calcium 7.6 L Phosphorus Magnesium 1.40 L AST ALT Alkaline Phosphatase Lactate Dehydrogenase Troponin T C-Reactive Protein NT-Pro-B Natriuret Pep Total Protein Albumin LDL Cholesterol Direct Vitamin B12 Crossmatch 11/27/21 11/27/21 11/28/21 17:44 23:33 12:20 WBC RBC Hgb Hct MCV MCH MCHC RDW Plt Count Seg Neuts % (Manual) Lymphocytes % (Manual) Seg Neutrophils # Man Lymphocytes # (Manual) Monocytes # (Manual) PT INR D-Dimer ABG pH ABG pO2 ABG HCO3 ABG O2 Saturation ABG Base Excess ABG Hemoglobin Oxyhemoglobin Sodium Potassium Chloride Carbon Dioxide BUN Creatinine Glucose POC Glucose 107 H 108 H 114 H Lactic Acid Calcium Phosphorus Magnesium AST ALT Alkaline Phosphatase Lactate Dehydrogenase Troponin T C-Reactive Protein NT-Pro-B Natriuret Pep Total Protein Albumin LDL Cholesterol Direct Vitamin B12 Crossmatch 11/29/21 11/29/21 11/29/21 00:09 03:20 03:20 WBC RBC 3.05 L Hgb 8.2 L Hct 25.8 L MCV MCH 27 L MCHC RDW 20.9 H Plt Count Seg Neuts % (Manual) Lymphocytes % (Manual) Seg Neutrophils # Man Lymphocytes # (Manual) Monocytes # (Manual) PT INR D-Dimer ABG pH ABG pO2 ABG HCO3 ABG O2 Saturation ABG Base Excess ABG Hemoglobin Oxyhemoglobin Sodium 133 L Potassium Chloride Carbon Dioxide BUN 24 H Creatinine Glucose 137 H POC Glucose 134 H Lactic Acid Calcium 7.4 L Phosphorus Magnesium AST ALT Alkaline Phosphatase Lactate Dehydrogenase Troponin T C-Reactive Protein NT-Pro-B Natriuret Pep Total Protein Albumin LDL Cholesterol Direct Vitamin B12 Crossmatch 11/29/21 11/29/21 11/29/21 05:38 11:39 17:11 WBC RBC Hgb Hct MCV MCH MCHC RDW Plt Count Seg Neuts % (Manual) Lymphocytes % (Manual) Seg Neutrophils # Man Lymphocytes # (Manual) Monocytes # (Manual) PT INR D-Dimer ABG pH ABG pO2 ABG HCO3 ABG O2 Saturation ABG Base Excess ABG Hemoglobin Oxyhemoglobin Sodium Potassium Chloride Carbon Dioxide BUN Creatinine Glucose POC Glucose 117 H 143 H 124 H Lactic Acid Calcium Phosphorus Magnesium AST ALT Alkaline Phosphatase Lactate Dehydrogenase Troponin T C-Reactive Protein NT-Pro-B Natriuret Pep Total Protein Albumin LDL Cholesterol Direct Vitamin B12 Crossmatch 11/29/21 11/30/21 11/30/21 20:15 05:40 05:40 WBC 12.6 H RBC 3.41 L Hgb 9.1 L Hct 28.9 L MCV MCH 27 L MCHC RDW 20.4 H Plt Count Seg Neuts % (Manual) Lymphocytes % (Manual) Seg Neutrophils # Man Lymphocytes # (Manual) Monocytes # (Manual) PT INR D-Dimer ABG pH ABG pO2 ABG HCO3 ABG O2 Saturation ABG Base Excess ABG Hemoglobin Oxyhemoglobin Sodium Potassium Chloride Carbon Dioxide BUN 24 H Creatinine Glucose 131 H POC Glucose Lactic Acid Calcium 7.6 L Phosphorus Magnesium AST ALT Alkaline Phosphatase Lactate Dehydrogenase Troponin T 0.045 H C-Reactive Protein NT-Pro-B Natriuret Pep Total Protein Albumin LDL Cholesterol Direct 25 L Vitamin B12 Crossmatch 11/30/21 11/30/21 12/01/21 11:29 16:51 05:00 WBC RBC 2.97 L Hgb 8.0 L Hct 25.0 L MCV MCH 27 L MCHC RDW 20.8 H Plt Count Seg Neuts % (Manual) Lymphocytes % (Manual) Seg Neutrophils # Man Lymphocytes # (Manual) Monocytes # (Manual) PT INR D-Dimer ABG pH ABG pO2 ABG HCO3 ABG O2 Saturation ABG Base Excess ABG Hemoglobin Oxyhemoglobin Sodium Potassium Chloride Carbon Dioxide BUN Creatinine Glucose POC Glucose 123 H 114 H Lactic Acid Calcium Phosphorus Magnesium AST ALT Alkaline Phosphatase Lactate Dehydrogenase Troponin T C-Reactive Protein NT-Pro-B Natriuret Pep Total Protein Albumin LDL Cholesterol Direct Vitamin B12 Crossmatch 12/01/21 12/01/21 12/01/21 05:00 05:25 11:54 WBC RBC Hgb Hct MCV MCH MCHC RDW Plt Count Seg Neuts % (Manual) Lymphocytes % (Manual) Seg Neutrophils # Man Lymphocytes # (Manual) Monocytes # (Manual) PT INR D-Dimer ABG pH ABG pO2 ABG HCO3 ABG O2 Saturation ABG Base Excess ABG Hemoglobin Oxyhemoglobin Sodium 136 L Potassium Chloride Carbon Dioxide BUN 24 H Creatinine Glucose 117 H POC Glucose 108 H 107 H Lactic Acid Calcium 7.5 L Phosphorus Magnesium 1.60 L AST ALT Alkaline Phosphatase Lactate Dehydrogenase Troponin T C-Reactive Protein NT-Pro-B Natriuret Pep Total Protein Albumin LDL Cholesterol Direct Vitamin B12 Crossmatch 12/01/21 12/02/21 12/02/21 17:40 00:07 04:20 WBC RBC 2.92 L Hgb 7.7 L Hct 24.3 L MCV MCH 26 L MCHC RDW 20.5 H Plt Count Seg Neuts % (Manual) Lymphocytes % (Manual) Seg Neutrophils # Man Lymphocytes # (Manual) Monocytes # (Manual) PT INR D-Dimer ABG pH ABG pO2 ABG HCO3 ABG O2 Saturation ABG Base Excess ABG Hemoglobin Oxyhemoglobin Sodium Potassium Chloride Carbon Dioxide BUN Creatinine Glucose POC Glucose 123 H 110 H Lactic Acid Calcium Phosphorus Magnesium AST ALT Alkaline Phosphatase Lactate Dehydrogenase Troponin T C-Reactive Protein NT-Pro-B Natriuret Pep Total Protein Albumin LDL Cholesterol Direct Vitamin B12 Crossmatch 12/02/21 12/02/21 12/02/21 04:20 11:17 18:20 WBC RBC Hgb Hct MCV MCH MCHC RDW Plt Count Seg Neuts % (Manual) Lymphocytes % (Manual) Seg Neutrophils # Man Lymphocytes # (Manual) Monocytes # (Manual) PT INR D-Dimer ABG pH ABG pO2 ABG HCO3 ABG O2 Saturation ABG Base Excess ABG Hemoglobin Oxyhemoglobin Sodium 135 L Potassium Chloride Carbon Dioxide BUN 26 H Creatinine Glucose 121 H POC Glucose 117 H 113 H Lactic Acid Calcium 7.4 L Phosphorus Magnesium AST ALT Alkaline Phosphatase Lactate Dehydrogenase Troponin T C-Reactive Protein NT-Pro-B Natriuret Pep Total Protein Albumin LDL Cholesterol Direct Vitamin B12 Crossmatch 12/03/21 12/03/21 12/03/21 00:12 04:00 04:00 WBC RBC 2.99 L Hgb 7.8 L Hct 24.6 L MCV MCH 26 L MCHC RDW 20.2 H Plt Count Seg Neuts % (Manual) Lymphocytes % (Manual) Seg Neutrophils # Man Lymphocytes # (Manual) Monocytes # (Manual) PT INR D-Dimer ABG pH ABG pO2 ABG HCO3 ABG O2 Saturation ABG Base Excess ABG Hemoglobin Oxyhemoglobin Sodium 136 L Potassium Chloride Carbon Dioxide BUN 27 H Creatinine Glucose 133 H POC Glucose 121 H Lactic Acid Calcium 7.5 L Phosphorus Magnesium AST ALT Alkaline Phosphatase Lactate Dehydrogenase Troponin T C-Reactive Protein NT-Pro-B Natriuret Pep Total Protein Albumin LDL Cholesterol Direct Vitamin B12 Crossmatch 12/03/21 12/03/21 12/03/21 06:30 11:13 16:00 WBC RBC Hgb Hct MCV MCH MCHC RDW Plt Count Seg Neuts % (Manual) Lymphocytes % (Manual) Seg Neutrophils # Man Lymphocytes # (Manual) Monocytes # (Manual) PT INR D-Dimer ABG pH ABG pO2 ABG HCO3 ABG O2 Saturation ABG Base Excess ABG Hemoglobin Oxyhemoglobin Sodium Potassium Chloride Carbon Dioxide BUN Creatinine Glucose POC Glucose 129 H 125 H 125 H Lactic Acid Calcium Phosphorus Magnesium AST ALT Alkaline Phosphatase Lactate Dehydrogenase Troponin T C-Reactive Protein NT-Pro-B Natriuret Pep Total Protein Albumin LDL Cholesterol Direct Vitamin B12 Crossmatch 12/03/21 12/04/21 12/04/21 23:32 04:00 05:36 WBC RBC Hgb Hct MCV MCH MCHC RDW Plt Count Seg Neuts % (Manual) Lymphocytes % (Manual) Seg Neutrophils # Man Lymphocytes # (Manual) Monocytes # (Manual) PT INR D-Dimer ABG pH ABG pO2 ABG HCO3 ABG O2 Saturation ABG Base Excess ABG Hemoglobin Oxyhemoglobin Sodium Potassium 3.5 L Chloride Carbon Dioxide BUN 26 H Creatinine 0.5 L Glucose 151 H POC Glucose 133 H 142 H Lactic Acid Calcium 8.3 L Phosphorus Magnesium AST ALT Alkaline Phosphatase Lactate Dehydrogenase Troponin T C-Reactive Protein NT-Pro-B Natriuret Pep Total Protein Albumin LDL Cholesterol Direct Vitamin B12 Crossmatch 12/04/21 12/04/21 12/05/21 11:24 15:58 04:36 WBC RBC Hgb Hct MCV MCH MCHC RDW Plt Count Seg Neuts % (Manual) Lymphocytes % (Manual) Seg Neutrophils # Man Lymphocytes # (Manual) Monocytes # (Manual) PT INR D-Dimer ABG pH ABG pO2 ABG HCO3 ABG O2 Saturation ABG Base Excess ABG Hemoglobin Oxyhemoglobin Sodium Potassium Chloride Carbon Dioxide BUN 21 H Creatinine 0.5 L Glucose 119 H POC Glucose 130 H 111 H Lactic Acid Calcium 8.3 L Phosphorus Magnesium AST ALT Alkaline Phosphatase Lactate Dehydrogenase Troponin T C-Reactive Protein NT-Pro-B Natriuret Pep Total Protein Albumin LDL Cholesterol Direct Vitamin B12 Crossmatch 12/05/21 12/05/21 12/05/21 05:15 10:40 11:12 WBC RBC 2.98 L Hgb 8.1 L Hct 24.6 L MCV MCH 27 L MCHC RDW 20.8 H Plt Count Seg Neuts % (Manual) Lymphocytes % (Manual) Seg Neutrophils # Man Lymphocytes # (Manual) Monocytes # (Manual) PT INR D-Dimer ABG pH ABG pO2 ABG HCO3 ABG O2 Saturation ABG Base Excess ABG Hemoglobin Oxyhemoglobin Sodium Potassium Chloride Carbon Dioxide BUN Creatinine Glucose POC Glucose 107 H 110 H Lactic Acid Calcium Phosphorus Magnesium AST ALT Alkaline Phosphatase Lactate Dehydrogenase Troponin T C-Reactive Protein NT-Pro-B Natriuret Pep Total Protein Albumin LDL Cholesterol Direct Vitamin B12 Crossmatch 12/05/21 12/06/21 12/06/21 23:39 04:25 04:25 WBC RBC 2.95 L Hgb 7.9 L Hct 24.7 L MCV MCH 27 L MCHC RDW 20.9 H Plt Count Seg Neuts % (Manual) Lymphocytes % (Manual) Seg Neutrophils # Man Lymphocytes # (Manual) Monocytes # (Manual) PT INR D-Dimer ABG pH ABG pO2 ABG HCO3 ABG O2 Saturation ABG Base Excess ABG Hemoglobin Oxyhemoglobin Sodium Potassium Chloride Carbon Dioxide BUN 22 H Creatinine 0.5 L Glucose 136 H POC Glucose 118 H Lactic Acid Calcium 8.2 L Phosphorus Magnesium AST ALT Alkaline Phosphatase Lactate Dehydrogenase Troponin T C-Reactive Protein NT-Pro-B Natriuret Pep Total Protein Albumin LDL Cholesterol Direct Vitamin B12 Crossmatch 12/06/21 12/06/21 12/07/21 05:28 11:27 04:00 WBC RBC Hgb 7.2 L Hct 21.8 L MCV MCH MCHC RDW Plt Count Seg Neuts % (Manual) Lymphocytes % (Manual) Seg Neutrophils # Man Lymphocytes # (Manual) Monocytes # (Manual) PT INR D-Dimer ABG pH ABG pO2 ABG HCO3 ABG O2 Saturation ABG Base Excess ABG Hemoglobin Oxyhemoglobin Sodium Potassium Chloride Carbon Dioxide BUN Creatinine Glucose POC Glucose 142 H 126 H Lactic Acid Calcium Phosphorus Magnesium AST ALT Alkaline Phosphatase Lactate Dehydrogenase Troponin T C-Reactive Protein NT-Pro-B Natriuret Pep Total Protein Albumin LDL Cholesterol Direct Vitamin B12 Crossmatch 12/07/21 12/07/21 12/07/21 04:00 05:30 11:12 WBC RBC Hgb Hct MCV MCH MCHC RDW Plt Count Seg Neuts % (Manual) Lymphocytes % (Manual) Seg Neutrophils # Man Lymphocytes # (Manual) Monocytes # (Manual) PT INR D-Dimer ABG pH ABG pO2 ABG HCO3 ABG O2 Saturation ABG Base Excess ABG Hemoglobin Oxyhemoglobin Sodium Potassium Chloride Carbon Dioxide BUN 22 H Creatinine Glucose 119 H POC Glucose 121 H 124 H Lactic Acid Calcium 8.0 L Phosphorus Magnesium AST ALT Alkaline Phosphatase Lactate Dehydrogenase Troponin T C-Reactive Protein NT-Pro-B Natriuret Pep Total Protein Albumin LDL Cholesterol Direct Vitamin B12 Crossmatch 12/08/21 12/08/21 12/08/21 04:00 04:00 05:39 WBC RBC 2.81 L Hgb 7.7 L Hct 23.5 L MCV MCH MCHC RDW 21.2 H Plt Count Seg Neuts % (Manual) Lymphocytes % (Manual) Seg Neutrophils # Man Lymphocytes # (Manual) Monocytes # (Manual) PT INR D-Dimer ABG pH ABG pO2 ABG HCO3 ABG O2 Saturation ABG Base Excess ABG Hemoglobin Oxyhemoglobin Sodium 135 L Potassium Chloride Carbon Dioxide BUN 23 H Creatinine Glucose 109 H POC Glucose 112 H Lactic Acid Calcium Phosphorus Magnesium AST ALT Alkaline Phosphatase Lactate Dehydrogenase Troponin T C-Reactive Protein NT-Pro-B Natriuret Pep Total Protein Albumin LDL Cholesterol Direct Vitamin B12 Crossmatch 12/08/21 12/09/21 12/09/21 11:03 04:20 04:20 WBC RBC 2.67 L Hgb 7.6 L Hct 22.1 L MCV MCH MCHC RDW 20.8 H Plt Count Seg Neuts % (Manual) Lymphocytes % (Manual) Seg Neutrophils # Man Lymphocytes # (Manual) Monocytes # (Manual) PT INR D-Dimer ABG pH ABG pO2 ABG HCO3 ABG O2 Saturation ABG Base Excess ABG Hemoglobin Oxyhemoglobin Sodium 135 L Potassium Chloride 97.8 L Carbon Dioxide BUN 26 H Creatinine Glucose 119 H POC Glucose 108 H Lactic Acid Calcium 7.7 L Phosphorus Magnesium AST ALT Alkaline Phosphatase Lactate Dehydrogenase Troponin T C-Reactive Protein NT-Pro-B Natriuret Pep Total Protein Albumin LDL Cholesterol Direct Vitamin B12 Crossmatch 12/09/21 12/10/21 12/10/21 11:26 04:33 11:12 WBC RBC Hgb Hct MCV MCH MCHC RDW Plt Count Seg Neuts % (Manual) Lymphocytes % (Manual) Seg Neutrophils # Man Lymphocytes # (Manual) Monocytes # (Manual) PT INR D-Dimer ABG pH ABG pO2 ABG HCO3 ABG O2 Saturation ABG Base Excess ABG Hemoglobin Oxyhemoglobin Sodium 136 L Potassium Chloride Carbon Dioxide BUN 27 H Creatinine Glucose 117 H POC Glucose 110 H 117 H Lactic Acid Calcium 8.2 L Phosphorus Magnesium AST ALT Alkaline Phosphatase Lactate Dehydrogenase Troponin T C-Reactive Protein NT-Pro-B Natriuret Pep Total Protein Albumin LDL Cholesterol Direct Vitamin B12 Crossmatch 12/10/21 12/10/21 12/11/21 16:02 23:31 04:35 WBC RBC 2.57 L Hgb 7.0 L Hct 21.4 L MCV MCH 27 L MCHC RDW 21.1 H Plt Count Seg Neuts % (Manual) Lymphocytes % (Manual) Seg Neutrophils # Man Lymphocytes # (Manual) Monocytes # (Manual) PT INR D-Dimer ABG pH ABG pO2 ABG HCO3 ABG O2 Saturation ABG Base Excess ABG Hemoglobin Oxyhemoglobin Sodium Potassium Chloride Carbon Dioxide BUN Creatinine Glucose POC Glucose 137 H 111 H Lactic Acid Calcium Phosphorus Magnesium AST ALT Alkaline Phosphatase Lactate Dehydrogenase Troponin T C-Reactive Protein NT-Pro-B Natriuret Pep Total Protein Albumin LDL Cholesterol Direct Vitamin B12 Crossmatch 12/11/21 12/11/21 12/11/21 04:35 12:46 16:07 WBC RBC Hgb Hct MCV MCH MCHC RDW Plt Count Seg Neuts % (Manual) Lymphocytes % (Manual) Seg Neutrophils # Man Lymphocytes # (Manual) Monocytes # (Manual) PT INR D-Dimer ABG pH ABG pO2 ABG HCO3 ABG O2 Saturation ABG Base Excess ABG Hemoglobin Oxyhemoglobin Sodium 136 L Potassium Chloride Carbon Dioxide BUN 27 H Creatinine Glucose 112 H POC Glucose 115 H 111 H Lactic Acid Calcium 7.6 L Phosphorus Magnesium AST ALT Alkaline Phosphatase Lactate Dehydrogenase Troponin T C-Reactive Protein NT-Pro-B Natriuret Pep Total Protein Albumin LDL Cholesterol Direct Vitamin B12 Crossmatch 12/11/21 12/12/21 12/12/21 23:42 04:30 04:30 WBC RBC 2.60 L Hgb 7.1 L Hct 21.5 L MCV MCH 27 L MCHC RDW 20.3 H Plt Count Seg Neuts % (Manual) Lymphocytes % (Manual) Seg Neutrophils # Man Lymphocytes # (Manual) Monocytes # (Manual) PT INR D-Dimer ABG pH ABG pO2 ABG HCO3 ABG O2 Saturation ABG Base Excess ABG Hemoglobin Oxyhemoglobin Sodium 135 L Potassium Chloride 97.9 L Carbon Dioxide BUN 26 H Creatinine 0.5 L Glucose 138 H POC Glucose 115 H Lactic Acid Calcium 8.2 L Phosphorus Magnesium AST ALT Alkaline Phosphatase Lactate Dehydrogenase Troponin T C-Reactive Protein NT-Pro-B Natriuret Pep Total Protein Albumin LDL Cholesterol Direct Vitamin B12 Crossmatch 12/12/21 12/12/21 12/12/21 04:30 05:10 11:51 WBC RBC Hgb Hct MCV MCH MCHC RDW Plt Count Seg Neuts % (Manual) Lymphocytes % (Manual) Seg Neutrophils # Man Lymphocytes # (Manual) Monocytes # (Manual) PT INR D-Dimer ABG pH ABG pO2 ABG HCO3 ABG O2 Saturation ABG Base Excess ABG Hemoglobin Oxyhemoglobin Sodium Potassium Chloride Carbon Dioxide BUN Creatinine Glucose POC Glucose 119 H 119 H Lactic Acid Calcium Phosphorus Magnesium AST ALT Alkaline Phosphatase Lactate Dehydrogenase Troponin T C-Reactive Protein NT-Pro-B Natriuret Pep Total Protein Albumin LDL Cholesterol Direct Vitamin B12 Crossmatch See Detail 12/13/21 12/13/21 12/13/21 00:52 04:00 04:00 WBC RBC 2.73 L Hgb 7.4 L Hct 22.8 L MCV MCH 27 L MCHC RDW 20.5 H Plt Count Seg Neuts % (Manual) Lymphocytes % (Manual) Seg Neutrophils # Man Lymphocytes # (Manual) Monocytes # (Manual) PT INR D-Dimer ABG pH ABG pO2 ABG HCO3 ABG O2 Saturation ABG Base Excess ABG Hemoglobin Oxyhemoglobin Sodium 134 L Potassium Chloride 96.7 L Carbon Dioxide BUN 23 H Creatinine 0.5 L Glucose 131 H POC Glucose 131 H Lactic Acid Calcium 8.1 L Phosphorus Magnesium AST ALT Alkaline Phosphatase Lactate Dehydrogenase Troponin T C-Reactive Protein NT-Pro-B Natriuret Pep Total Protein Albumin LDL Cholesterol Direct Vitamin B12 Crossmatch 12/13/21 12/13/21 12/13/21 05:23 12:11 17:18 WBC RBC Hgb Hct MCV MCH MCHC RDW Plt Count Seg Neuts % (Manual) Lymphocytes % (Manual) Seg Neutrophils # Man Lymphocytes # (Manual) Monocytes # (Manual) PT INR D-Dimer ABG pH ABG pO2 ABG HCO3 ABG O2 Saturation ABG Base Excess ABG Hemoglobin Oxyhemoglobin Sodium Potassium Chloride Carbon Dioxide BUN Creatinine Glucose POC Glucose 121 H 143 H 148 H Lactic Acid Calcium Phosphorus Magnesium AST ALT Alkaline Phosphatase Lactate Dehydrogenase Troponin T C-Reactive Protein NT-Pro-B Natriuret Pep Total Protein Albumin LDL Cholesterol Direct Vitamin B12 Crossmatch 12/14/21 12/14/21 12/14/21 00:54 04:20 04:20 WBC RBC 2.39 L Hgb 6.5 L Hct 20.3 L MCV MCH 27 L MCHC RDW 20.3 H Plt Count Seg Neuts % (Manual) Lymphocytes % (Manual) Seg Neutrophils # Man Lymphocytes # (Manual) Monocytes # (Manual) PT INR D-Dimer ABG pH ABG pO2 ABG HCO3 ABG O2 Saturation ABG Base Excess ABG Hemoglobin Oxyhemoglobin Sodium 130 L Potassium Chloride 93.5 L Carbon Dioxide BUN 25 H Creatinine Glucose 123 H POC Glucose 123 H Lactic Acid Calcium 8.0 L Phosphorus Magnesium AST ALT Alkaline Phosphatase Lactate Dehydrogenase Troponin T C-Reactive Protein NT-Pro-B Natriuret Pep Total Protein Albumin LDL Cholesterol Direct Vitamin B12 Crossmatch 12/14/21 12/14/21 12/14/21 05:06 08:17 10:30 WBC RBC Hgb Hct MCV MCH MCHC RDW Plt Count Seg Neuts % (Manual) Lymphocytes % (Manual) Seg Neutrophils # Man Lymphocytes # (Manual) Monocytes # (Manual) PT INR D-Dimer ABG pH ABG pO2 ABG HCO3 ABG O2 Saturation ABG Base Excess ABG Hemoglobin Oxyhemoglobin Sodium Potassium Chloride Carbon Dioxide BUN Creatinine Glucose POC Glucose 131 H 119 H Lactic Acid Calcium Phosphorus Magnesium AST ALT Alkaline Phosphatase Lactate Dehydrogenase Troponin T C-Reactive Protein NT-Pro-B Natriuret Pep Total Protein Albumin LDL Cholesterol Direct Vitamin B12 Crossmatch See Detail 12/14/21 12/14/21 12/14/21 12:15 16:37 23:27 WBC RBC Hgb Hct MCV MCH MCHC RDW Plt Count Seg Neuts % (Manual) Lymphocytes % (Manual) Seg Neutrophils # Man Lymphocytes # (Manual) Monocytes # (Manual) PT INR D-Dimer ABG pH ABG pO2 ABG HCO3 ABG O2 Saturation ABG Base Excess ABG Hemoglobin Oxyhemoglobin Sodium Potassium Chloride Carbon Dioxide BUN Creatinine Glucose POC Glucose 147 H 141 H 130 H Lactic Acid Calcium Phosphorus Magnesium AST ALT Alkaline Phosphatase Lactate Dehydrogenase Troponin T C-Reactive Protein NT-Pro-B Natriuret Pep Total Protein Albumin LDL Cholesterol Direct Vitamin B12 Crossmatch 12/15/21 12/15/21 12/15/21 05:00 07:00 07:00 WBC 12.3 H RBC 3.27 L Hgb 8.8 L Hct 27.5 L D MCV MCH 27 L MCHC RDW 19.0 H Plt Count Seg Neuts % (Manual) Lymphocytes % (Manual) Seg Neutrophils # Man Lymphocytes # (Manual) Monocytes # (Manual) PT INR D-Dimer ABG pH ABG pO2 ABG HCO3 ABG O2 Saturation ABG Base Excess ABG Hemoglobin Oxyhemoglobin Sodium 134 L Potassium Chloride 95.7 L Carbon Dioxide BUN 28 H Creatinine Glucose 129 H POC Glucose 129 H Lactic Acid Calcium 8.2 L Phosphorus Magnesium AST ALT Alkaline Phosphatase Lactate Dehydrogenase Troponin T C-Reactive Protein NT-Pro-B Natriuret Pep Total Protein Albumin LDL Cholesterol Direct Vitamin B12 Crossmatch 12/15/21 12/15/21 12/15/21 11:18 16:00 23:39 WBC RBC Hgb Hct MCV MCH MCHC RDW Plt Count Seg Neuts % (Manual) Lymphocytes % (Manual) Seg Neutrophils # Man Lymphocytes # (Manual) Monocytes # (Manual) PT INR D-Dimer ABG pH ABG pO2 ABG HCO3 ABG O2 Saturation ABG Base Excess ABG Hemoglobin Oxyhemoglobin Sodium Potassium Chloride Carbon Dioxide BUN Creatinine Glucose POC Glucose 139 H 137 H 146 H Lactic Acid Calcium Phosphorus Magnesium AST ALT Alkaline Phosphatase Lactate Dehydrogenase Troponin T C-Reactive Protein NT-Pro-B Natriuret Pep Total Protein Albumin LDL Cholesterol Direct Vitamin B12 Crossmatch 12/16/21 12/16/21 12/16/21 05:24 10:21 10:21 WBC 15.3 H RBC 3.24 L Hgb 8.9 L Hct 27.7 L MCV MCH MCHC RDW 19.0 H Plt Count Seg Neuts % (Manual) Lymphocytes % (Manual) Seg Neutrophils # Man Lymphocytes # (Manual) Monocytes # (Manual) PT INR D-Dimer ABG pH ABG pO2 ABG HCO3 ABG O2 Saturation ABG Base Excess ABG Hemoglobin Oxyhemoglobin Sodium 131 L Potassium 3.5 L Chloride 92.7 L Carbon Dioxide BUN 36 H Creatinine Glucose 160 H POC Glucose 121 H Lactic Acid Calcium Phosphorus Magnesium 1.60 L AST ALT Alkaline Phosphatase Lactate Dehydrogenase Troponin T C-Reactive Protein NT-Pro-B Natriuret Pep Total Protein Albumin LDL Cholesterol Direct Vitamin B12 Crossmatch 12/16/21 12/16/21 12/16/21 11:21 18:28 20:52 WBC RBC Hgb Hct MCV MCH MCHC RDW Plt Count Seg Neuts % (Manual) Lymphocytes % (Manual) Seg Neutrophils # Man Lymphocytes # (Manual) Monocytes # (Manual) PT INR D-Dimer ABG pH 7.479 H ABG pO2 79.3 L ABG HCO3 27.3 H ABG O2 Saturation ABG Base Excess 3.6 H ABG Hemoglobin 9.1 L Oxyhemoglobin 94.9 L Sodium Potassium Chloride Carbon Dioxide BUN Creatinine Glucose POC Glucose 153 H 132 H Lactic Acid Calcium Phosphorus Magnesium AST ALT Alkaline Phosphatase Lactate Dehydrogenase Troponin T C-Reactive Protein NT-Pro-B Natriuret Pep Total Protein Albumin LDL Cholesterol Direct Vitamin B12 Crossmatch 12/16/21 12/17/21 12/17/21 23:30 04:25 04:25 WBC 12.3 H RBC 2.16 L Hgb 6.0 L Hct 18.1 L* D MCV MCH MCHC RDW 19.4 H Plt Count Seg Neuts % (Manual) Lymphocytes % (Manual) Seg Neutrophils # Man Lymphocytes # (Manual) Monocytes # (Manual) PT INR D-Dimer ABG pH ABG pO2 ABG HCO3 ABG O2 Saturation ABG Base Excess ABG Hemoglobin Oxyhemoglobin Sodium 132 L Potassium 3.2 L Chloride 112.0 H Carbon Dioxide BUN 32 H Creatinine Glucose 122 H POC Glucose 137 H Lactic Acid Calcium 6.8 L D Phosphorus Magnesium AST ALT Alkaline Phosphatase Lactate Dehydrogenase Troponin T C-Reactive Protein NT-Pro-B Natriuret Pep Total Protein Albumin LDL Cholesterol Direct Vitamin B12 Crossmatch 12/17/21 12/17/21 12/17/21 05:30 11:49 14:45 WBC RBC Hgb 9.7 L D Hct MCV MCH MCHC RDW Plt Count Seg Neuts % (Manual) Lymphocytes % (Manual) Seg Neutrophils # Man Lymphocytes # (Manual) Monocytes # (Manual) PT INR D-Dimer ABG pH ABG pO2 ABG HCO3 ABG O2 Saturation ABG Base Excess ABG Hemoglobin Oxyhemoglobin Sodium Potassium Chloride Carbon Dioxide BUN Creatinine Glucose POC Glucose 137 H 143 H Lactic Acid Calcium Phosphorus Magnesium AST ALT Alkaline Phosphatase Lactate Dehydrogenase Troponin T C-Reactive Protein NT-Pro-B Natriuret Pep Total Protein Albumin LDL Cholesterol Direct Vitamin B12 Crossmatch 12/17/21 12/18/21 12/18/21 17:01 05:04 05:04 WBC 13.8 H RBC 3.44 L Hgb 9.9 L Hct 28.8 L MCV MCH MCHC RDW 18.1 H Plt Count Seg Neuts % (Manual) Lymphocytes % (Manual) Seg Neutrophils # Man Lymphocytes # (Manual) Monocytes # (Manual) PT INR D-Dimer ABG pH ABG pO2 ABG HCO3 ABG O2 Saturation ABG Base Excess ABG Hemoglobin Oxyhemoglobin Sodium 132 L Potassium Chloride 97.4 L Carbon Dioxide BUN 38 H Creatinine Glucose 134 H POC Glucose 132 H Lactic Acid Calcium Phosphorus Magnesium AST ALT Alkaline Phosphatase Lactate Dehydrogenase Troponin T C-Reactive Protein NT-Pro-B Natriuret Pep Total Protein Albumin LDL Cholesterol Direct Vitamin B12 Crossmatch 12/18/21 12/18/21 12/18/21 05:28 10:57 16:27 WBC RBC Hgb Hct MCV MCH MCHC RDW Plt Count Seg Neuts % (Manual) Lymphocytes % (Manual) Seg Neutrophils # Man Lymphocytes # (Manual) Monocytes # (Manual) PT INR D-Dimer ABG pH ABG pO2 ABG HCO3 ABG O2 Saturation ABG Base Excess ABG Hemoglobin Oxyhemoglobin Sodium Potassium Chloride Carbon Dioxide BUN Creatinine Glucose POC Glucose 118 H 132 H 130 H Lactic Acid Calcium Phosphorus Magnesium AST ALT Alkaline Phosphatase Lactate Dehydrogenase Troponin T C-Reactive Protein NT-Pro-B Natriuret Pep Total Protein Albumin LDL Cholesterol Direct Vitamin B12 Crossmatch 12/19/21 12/19/21 12/19/21 00:02 04:41 04:41 WBC 16.0 H RBC 3.45 L Hgb 9.7 L Hct 29.1 L MCV MCH MCHC RDW 17.8 H Plt Count Seg Neuts % (Manual) Lymphocytes % (Manual) Seg Neutrophils # Man Lymphocytes # (Manual) Monocytes # (Manual) PT INR D-Dimer ABG pH ABG pO2 ABG HCO3 ABG O2 Saturation ABG Base Excess ABG Hemoglobin Oxyhemoglobin Sodium 133 L Potassium Chloride 97.9 L Carbon Dioxide BUN 36 H Creatinine 0.5 L Glucose 126 H POC Glucose 127 H Lactic Acid Calcium 8.3 L Phosphorus Magnesium AST ALT Alkaline Phosphatase Lactate Dehydrogenase Troponin T C-Reactive Protein NT-Pro-B Natriuret Pep Total Protein Albumin LDL Cholesterol Direct Vitamin B12 Crossmatch 12/19/21 12/19/21 12/19/21 05:26 12:20 16:43 WBC RBC Hgb Hct MCV MCH MCHC RDW Plt Count Seg Neuts % (Manual) Lymphocytes % (Manual) Seg Neutrophils # Man Lymphocytes # (Manual) Monocytes # (Manual) PT INR D-Dimer ABG pH ABG pO2 ABG HCO3 ABG O2 Saturation ABG Base Excess ABG Hemoglobin Oxyhemoglobin Sodium Potassium Chloride Carbon Dioxide BUN Creatinine Glucose POC Glucose 119 H 145 H 126 H Lactic Acid Calcium Phosphorus Magnesium AST ALT Alkaline Phosphatase Lactate Dehydrogenase Troponin T C-Reactive Protein NT-Pro-B Natriuret Pep Total Protein Albumin LDL Cholesterol Direct Vitamin B12 Crossmatch 12/19/21 12/20/21 12/20/21 23:30 04:54 04:54 WBC 12.3 H RBC 3.54 L Hgb 10.0 L Hct 29.5 L MCV MCH MCHC RDW 17.8 H Plt Count Seg Neuts % (Manual) 88.0 H Lymphocytes % (Manual) 6.0 L Seg Neutrophils # Man 10.8 H Lymphocytes # (Manual) 0.7 L Monocytes # (Manual) PT INR D-Dimer ABG pH ABG pO2 ABG HCO3 ABG O2 Saturation ABG Base Excess ABG Hemoglobin Oxyhemoglobin Sodium 131 L Potassium Chloride 96.2 L Carbon Dioxide BUN 36 H Creatinine 0.5 L Glucose 130 H POC Glucose 117 H Lactic Acid Calcium Phosphorus Magnesium AST ALT Alkaline Phosphatase Lactate Dehydrogenase Troponin T C-Reactive Protein NT-Pro-B Natriuret Pep Total Protein Albumin LDL Cholesterol Direct Vitamin B12 Crossmatch 12/20/21 12/20/21 12/20/21 05:20 11:51 17:30 WBC RBC Hgb Hct MCV MCH MCHC RDW Plt Count Seg Neuts % (Manual) Lymphocytes % (Manual) Seg Neutrophils # Man Lymphocytes # (Manual) Monocytes # (Manual) PT INR D-Dimer ABG pH ABG pO2 ABG HCO3 ABG O2 Saturation ABG Base Excess ABG Hemoglobin Oxyhemoglobin Sodium Potassium Chloride Carbon Dioxide BUN Creatinine Glucose POC Glucose 126 H 119 H 127 H Lactic Acid Calcium Phosphorus Magnesium AST ALT Alkaline Phosphatase Lactate Dehydrogenase Troponin T C-Reactive Protein NT-Pro-B Natriuret Pep Total Protein Albumin LDL Cholesterol Direct Vitamin B12 Crossmatch 12/21/21 12/21/21 12/21/21 00:45 04:21 04:21 WBC RBC 3.47 L Hgb 9.4 L Hct 29.2 L MCV MCH 27 L MCHC RDW 18.1 H Plt Count Seg Neuts % (Manual) Lymphocytes % (Manual) Seg Neutrophils # Man Lymphocytes # (Manual) Monocytes # (Manual) PT INR D-Dimer ABG pH ABG pO2 ABG HCO3 ABG O2 Saturation ABG Base Excess ABG Hemoglobin Oxyhemoglobin Sodium 134 L Potassium Chloride Carbon Dioxide BUN 35 H Creatinine 0.5 L Glucose 122 H POC Glucose 125 H Lactic Acid Calcium 8.2 L Phosphorus Magnesium AST ALT Alkaline Phosphatase Lactate Dehydrogenase Troponin T C-Reactive Protein NT-Pro-B Natriuret Pep Total Protein Albumin LDL Cholesterol Direct Vitamin B12 Crossmatch 12/21/21 12/21/21 12/21/21 05:38 11:29 16:16 WBC RBC Hgb Hct MCV MCH MCHC RDW Plt Count Seg Neuts % (Manual) Lymphocytes % (Manual) Seg Neutrophils # Man Lymphocytes # (Manual) Monocytes # (Manual) PT INR D-Dimer ABG pH ABG pO2 ABG HCO3 ABG O2 Saturation ABG Base Excess ABG Hemoglobin Oxyhemoglobin Sodium Potassium Chloride Carbon Dioxide BUN Creatinine Glucose POC Glucose 127 H 121 H 113 H Lactic Acid Calcium Phosphorus Magnesium AST ALT Alkaline Phosphatase Lactate Dehydrogenase Troponin T C-Reactive Protein NT-Pro-B Natriuret Pep Total Protein Albumin LDL Cholesterol Direct Vitamin B12 Crossmatch 12/22/21 12/22/21 12/23/21 04:58 04:58 06:40 WBC 11.5 H RBC 3.43 L Hgb 9.8 L Hct 28.7 L MCV MCH MCHC RDW 18.5 H 17.9 H Plt Count Seg Neuts % (Manual) Lymphocytes % (Manual) Seg Neutrophils # Man Lymphocytes # (Manual) Monocytes # (Manual) PT INR D-Dimer ABG pH ABG pO2 ABG HCO3 ABG O2 Saturation ABG Base Excess ABG Hemoglobin Oxyhemoglobin Sodium 130 L Potassium Chloride 97.8 L Carbon Dioxide BUN 31 H Creatinine 0.5 L Glucose 122 H POC Glucose Lactic Acid Calcium 7.9 L Phosphorus Magnesium AST ALT Alkaline Phosphatase Lactate Dehydrogenase Troponin T C-Reactive Protein NT-Pro-B Natriuret Pep Total Protein Albumin LDL Cholesterol Direct Vitamin B12 Crossmatch 12/23/21 12/23/21 12/24/21 06:40 23:25 04:24 WBC 11.7 H RBC Hgb 9.8 L Hct MCV MCH 26 L MCHC RDW 18.1 H Plt Count Seg Neuts % (Manual) Lymphocytes % (Manual) Seg Neutrophils # Man Lymphocytes # (Manual) Monocytes # (Manual) PT INR D-Dimer ABG pH ABG pO2 ABG HCO3 ABG O2 Saturation ABG Base Excess ABG Hemoglobin Oxyhemoglobin Sodium 136 L Potassium Chloride Carbon Dioxide BUN 27 H Creatinine 0.4 L Glucose 107 H POC Glucose 110 H Lactic Acid Calcium 8.1 L Phosphorus Magnesium AST ALT Alkaline Phosphatase Lactate Dehydrogenase Troponin T C-Reactive Protein NT-Pro-B Natriuret Pep Total Protein Albumin LDL Cholesterol Direct Vitamin B12 Crossmatch 12/24/21 12/24/21 12/24/21 04:24 11:08 15:45 WBC RBC Hgb Hct MCV MCH MCHC RDW Plt Count Seg Neuts % (Manual) Lymphocytes % (Manual) Seg Neutrophils # Man Lymphocytes # (Manual) Monocytes # (Manual) PT INR D-Dimer ABG pH ABG pO2 ABG HCO3 ABG O2 Saturation ABG Base Excess ABG Hemoglobin Oxyhemoglobin Sodium 132 L Potassium Chloride Carbon Dioxide BUN 27 H Creatinine 0.3 L Glucose 108 H POC Glucose 116 H 107 H Lactic Acid Calcium Phosphorus Magnesium AST ALT Alkaline Phosphatase Lactate Dehydrogenase Troponin T C-Reactive Protein NT-Pro-B Natriuret Pep Total Protein Albumin LDL Cholesterol Direct Vitamin B12 Crossmatch 12/24/21 12/25/21 12/25/21 23:43 05:29 11:48 WBC RBC Hgb Hct MCV MCH MCHC RDW Plt Count Seg Neuts % (Manual) Lymphocytes % (Manual) Seg Neutrophils # Man Lymphocytes # (Manual) Monocytes # (Manual) PT INR D-Dimer ABG pH ABG pO2 ABG HCO3 ABG O2 Saturation ABG Base Excess ABG Hemoglobin Oxyhemoglobin Sodium Potassium Chloride Carbon Dioxide BUN Creatinine Glucose POC Glucose 123 H 107 H 119 H Lactic Acid Calcium Phosphorus Magnesium AST ALT Alkaline Phosphatase Lactate Dehydrogenase Troponin T C-Reactive Protein NT-Pro-B Natriuret Pep Total Protein Albumin LDL Cholesterol Direct Vitamin B12 Crossmatch 12/26/21 12/26/21 12/26/21 00:06 05:56 07:51 WBC 11.4 H RBC 3.40 L Hgb 9.3 L Hct 28.3 L MCV MCH 27 L MCHC RDW 18.2 H Plt Count Seg Neuts % (Manual) Lymphocytes % (Manual) Seg Neutrophils # Man Lymphocytes # (Manual) Monocytes # (Manual) PT INR D-Dimer ABG pH ABG pO2 ABG HCO3 ABG O2 Saturation ABG Base Excess ABG Hemoglobin Oxyhemoglobin Sodium Potassium Chloride Carbon Dioxide BUN Creatinine Glucose POC Glucose 133 H 107 H Lactic Acid Calcium Phosphorus Magnesium AST ALT Alkaline Phosphatase Lactate Dehydrogenase Troponin T C-Reactive Protein NT-Pro-B Natriuret Pep Total Protein Albumin LDL Cholesterol Direct Vitamin B12 Crossmatch 12/26/21 12/26/21 12/26/21 07:51 11:43 17:06 WBC RBC Hgb Hct MCV MCH MCHC RDW Plt Count Seg Neuts % (Manual) Lymphocytes % (Manual) Seg Neutrophils # Man Lymphocytes # (Manual) Monocytes # (Manual) PT INR D-Dimer ABG pH ABG pO2 ABG HCO3 ABG O2 Saturation ABG Base Excess ABG Hemoglobin Oxyhemoglobin Sodium 136 L Potassium Chloride Carbon Dioxide BUN 25 H Creatinine 0.3 L Glucose 131 H POC Glucose 119 H 128 H Lactic Acid Calcium Phosphorus Magnesium AST ALT Alkaline Phosphatase Lactate Dehydrogenase Troponin T C-Reactive Protein NT-Pro-B Natriuret Pep Total Protein Albumin LDL Cholesterol Direct Vitamin B12 Crossmatch 12/28/21 12/28/21 12/29/21 09:05 09:05 04:40 WBC RBC 3.19 L Hgb 8.9 L Hct 26.4 L MCV MCH 27 L MCHC RDW 18.4 H 17.9 H Plt Count Seg Neuts % (Manual) Lymphocytes % (Manual) Seg Neutrophils # Man Lymphocytes # (Manual) Monocytes # (Manual) PT INR D-Dimer ABG pH ABG pO2 ABG HCO3 ABG O2 Saturation ABG Base Excess ABG Hemoglobin Oxyhemoglobin Sodium 135 L Potassium Chloride 97.8 L Carbon Dioxide BUN 18 H Creatinine 0.3 L Glucose POC Glucose Lactic Acid Calcium Phosphorus Magnesium AST ALT Alkaline Phosphatase Lactate Dehydrogenase Troponin T C-Reactive Protein NT-Pro-B Natriuret Pep Total Protein Albumin LDL Cholesterol Direct Vitamin B12 Crossmatch 12/29/21 12/29/21 12/30/21 04:40 12:47 04:05 WBC RBC 3.29 L Hgb 8.7 L Hct 27.6 L MCV MCH 27 L MCHC RDW 17.6 H Plt Count Seg Neuts % (Manual) Lymphocytes % (Manual) Seg Neutrophils # Man Lymphocytes # (Manual) Monocytes # (Manual) PT INR D-Dimer ABG pH ABG pO2 ABG HCO3 ABG O2 Saturation ABG Base Excess ABG Hemoglobin Oxyhemoglobin Sodium 136 L Potassium Chloride Carbon Dioxide BUN Creatinine 0.3 L Glucose POC Glucose 67 L Lactic Acid Calcium 8.3 L Phosphorus Magnesium AST ALT Alkaline Phosphatase Lactate Dehydrogenase Troponin T C-Reactive Protein NT-Pro-B Natriuret Pep Total Protein Albumin LDL Cholesterol Direct Vitamin B12 Crossmatch 12/30/21 04:05 WBC RBC Hgb Hct MCV MCH MCHC RDW Plt Count Seg Neuts % (Manual) Lymphocytes % (Manual) Seg Neutrophils # Man Lymphocytes # (Manual) Monocytes # (Manual) PT INR D-Dimer ABG pH ABG pO2 ABG HCO3 ABG O2 Saturation ABG Base Excess ABG Hemoglobin Oxyhemoglobin Sodium 136 L Potassium 3.5 L Chloride Carbon Dioxide BUN Creatinine 0.4 L Glucose POC Glucose Lactic Acid Calcium Phosphorus Magnesium 1.50 L AST ALT Alkaline Phosphatase Lactate Dehydrogenase Troponin T C-Reactive Protein NT-Pro-B Natriuret Pep Total Protein Albumin LDL Cholesterol Direct Vitamin B12 Crossmatch Chest x-ray: image reviewed Allied health notes reviewed: RT
--- NOTE | 2021-12-30 16:13 | XRay Report ---
CHEST 1 VIEW INDICATION: recent right thora, pl effusion. COMPARISON: 12/28/2021 FINDINGS: Support devices: Stable Heart: Stable mild cardiomegaly Lungs/Pleura: Pulmonary venous congestion has improved significantly. Small left pleural effusion has also improved complete evacuation of the right pleural effusion is demonstrated. No pneumothorax. Additional findings: None. IMPRESSION: Complete evacuation of the right pleural effusion. No pneumothorax. Overall improvement in volume ov erload. Signer Name: Job López Jr, MD Signed: 12/30/2021 4:09 PM Workstation Name: [id number]
--- NOTE | 2021-12-30 16:14 | Ultrasound Report ---
ULTRASOUND ABDOMEN LIMITED HISTORY: Ascites, paracentesis TECHNIQUE: Transabdominal grayscale ultrasound FINDINGS: All 4 quadrants of the abdomen were scanned. Only trace to small ascites is demonstrated. N o pocket large enough for safe ultrasound-guided paracentesis. IMPRESSION: Trace to small ascites. Ultrasound-guided paracentesis was not performed. Signer Name: Job López Jr, MD Signed: 12/30/2021 4:10 PM Workstation Name: [id number]
--- NOTE | 2021-12-30 16:15 | Ultrasound Report ---
ULTRASOUND-GUIDED THORACENTESIS HISTORY: BILATERAL PLEURAL EFFUSION RT SIDE THORA. COMPARISON: AP chest 12/28/2021 PROCEDURE: The risks (including but not limited to bleeding, infection, and pneumothorax) and benefi ts were explained to the patient and informed consent was obtained. A time out procedure was perform ed. Ultrasound was used to evaluate the right pleural effusion and locate the optimal site for needle ent ry. Once the skin was marked, the procedure site was prepped and draped in the usual sterile fashion and lidocaine was used for local anesthesia. A 5-Sloven[place] thoracentesis catheter was placed. The pat ient was monitored closely throughout the procedure, and a total of 1400 mL of clear yellow fluid was aspirated. No labs were ordered. The patient tolerated the procedure well with no complications. A post-procedure chest x-ray was imm ediately ordered. IMPRESSION: Successful thoracentesis Signer Name: Job López Jr, MD Signed: 12/30/2021 4:10 PM Workstation Name: [id number]
[2021-12-30] MEDS ORDERED: metOLazone 2.5 MG TAB PO NR (16:30)
[2021-12-30] MEDS ORDERED: FUROSEMIDE 20 MG/2 ML INJ IV NR (16:30)
[2021-12-30] MEDS ORDERED: FUROSEMIDE 40 MG/4 ML INJ IV ONE (17:00)
[2021-12-30] MEDS: VANCOMYCIN/NS 1 GM/250 ML 1 GM/250 ML BAG IV SCH (19:20)
[2021-12-30] MEDS ORDERED: POTASSIUM CHLORIDE 20 MEQ PACKET FEEDTUBE ONE (21:00)
[2021-12-30] MEDS: MELATONIN 5 MG TAB PO SCH (21:28)
[2021-12-30] MEDS: ALPRAZolam 0.25 MG TAB FEEDTUBE PRN (21:28)
[2021-12-30] MEDS: traZODone 50 MG TAB PO SCH (21:29)
[2021-12-30] MEDS: PRAVASTATIN 20 MG TAB FEEDTUBE SCH (21:30)
[2021-12-30] MEDS: ONDANSETRON 4 MG/2 ML INJ IV PRN (21:54)
[2021-12-30] MEDS ORDERED: QUEtiapine 25 MG TAB FEEDTUBE SCH (22:00)
[2021-12-31] MEDS: SUCRALFATE 1 GM/10 ML ORAL LIQD FEEDTUBE SCH ×4 (05:01→19:05)
[2021-12-31] MEDS: METOCLOPRAMIDE 10 MG/2 ML INJ IV SCH ×3 (05:01→21:03)
[2021-12-31] MEDS: LEVOTHYROXINE 125 MCG TAB FEEDTUBE SCH (05:02)
[2021-12-31 06:18] LABS: Hematocrit 25.5 % (30.3-42.9); Hemoglobin 8.5 gm/dl (10.1-14.3); Mean Corpuscular HGB Conc 34 % (30-34); Mean Corpuscular Volume 84 fl (79-97); Platelet Count 258 K/mm3 (140-440); Red Blood Count 3.05 M/mm3 (3.65-5.03); Red Cell Distribution Width 18.2 % (13.2-15.2)
[2021-12-31 06:38] LABS: BUN/Creatinine Ratio 48; Blood Urea Nitrogen 19 mg/dL (7-17); Calcium 8.5 mg/dL (8.4-10.2); Hemolysis Index 4
[2021-12-31] MEDS: HYDROcodone/ACETAMINOPHEN 10-325MG TAB FEEDTUBE SCH ×3 (07:56→20:53)
[2021-12-31] MEDS: METOPROLOL TARTRATE 25 MG TAB FEEDTUBE SCH ×2 (10:21→21:02)
[2021-12-31] MEDS: busPIRone 5 MG TAB FEEDTUBE SCH ×2 (10:22→21:02)
[2021-12-31] MEDS: LANSOPRAZOLE 30 MG SOLUTAB FEEDTUBE SCH ×2 (10:22→21:02)
[2021-12-31] MEDS: QUEtiapine 25 MG TAB FEEDTUBE SCH ×2 (10:22→21:03)
[2021-12-31] MEDS: SPIRONOLACTONE 25 MG TAB FEEDTUBE SCH (10:22)
[2021-12-31] MEDS: GABAPENTIN 100 MG CAP FEEDTUBE SCH (10:23)
[2021-12-31] MEDS: POLYETHYLENE GLYCOL 3350 17 GM POWDER FEEDTUBE SCH (10:23)
[2021-12-31] MEDS: SENNOSIDES ORAL LIQD 8.8 MG/5 ML ORAL LIQD FEEDTUBE SCH ×2 (10:23→21:04)
[2021-12-31] MEDS: MIDODRINE 5 MG TAB FEEDTUBE SCH ×3 (10:24→19:05)
[2021-12-31] MEDS: DOCUSATE SODIUM 100 MG/10 ML ORAL LIQD FEEDTUBE SCH ×2 (10:24→21:04)
--- NOTE | 2021-12-31 12:17 | Progress Note ---
<LONNIE MAURICE - Last Filed: 12/31/21 18:52> Assessment and Plan Assessment and plan: This is a 81-year-old female with known history of diabetes mellitus, hypertension, PPM, and arthritis admitted for sepsis and acute hypoxia respiratory failure 2/2 bilateral pneumonia requiring intubation and ventilatory support Hospital Course to date: ------ 12/04: Increased agitation and anxiety overnight, remains on buspar and seroquel, trazadone added to promote rest. Patient is now working with PT, keep patient engage and awake during the day so she can rest at night. No BM for over 5 days, BR was adjusted. Patient did not tolerate PST again yesterday, continue daily PST as tolerated. Continue to titrate pressor for MAP above 65. Pending possible LTAC placement, case management to arrange. 12/05: Still not getting much rest overnight, will add melatonin for sleep. Continue to engage patient during the day and promote rest at night. TF was held due to concern for possible bleeding, H&H remains stable and stools normal this am. Resume TF and continue PPI and carafate. Remains on low dose levophed, titrate as tolerated. Continue daily PST. Possible LTAC placement, awaiting approval. 12/06: [facility] overnight. Patient rested overnight. Continue supportive measures. Daily PST as tolerated. Awaiting possible LTAC placement 12/07: [facility] overnight. Plan for Tpiece trial today. Continue current supportive measures. Possible LTAC placement 12/08: Patient placed on pressure support trial again today, started on Xanax, no acute events reported overnight. Awaiting insurance approval for LTAC. 12/09: Levophed discontinued, LTAC transfer denied, started on midodrine and Lasix, ultrasound chest pending, started on Xanax 0.[address] De León updated family at bedside today. Started on Dilaudid every 3 hours as needed. 12/10: Patient placed on CPAP trial this morning, no acute events reported overnight. Will order ultrasound-guided thoracentesis. 12/11: Patient had a thoracentesis today, will decrease Xanax dosage and continue midodrine and diuresing. Patient failed CPAP today. 12/12: Patient not tolerate CPAP trials today, no acute events reported overnight 12/13: No acute events overnight. continue PSV trials as tolerated. Daughter updated at bedside 12/14: Patient noted to be anemic today, worsened gastric occult. Patient seems to be oversedated therefore Xanax changed to as needed and fentanyl patch discontinued. We will continue to monitor hyponatremia. 12/15: [facility] overnight. s/p 1unit of PRBCs, H&H stable this am, no signs of any active bleeding. Continue daily PST as tolerated. Awaiting placement. 12/16: Hypertensive this am, Midodrine decreased. Continue daily PST. [facility] overnight 12/17: Patient Hgb dropped to 6 this am, no s/s of any active bleeding, VSS. Patient received 1unit of PRBC, will continue to trend H&H. Patient was pancul tured and back on IV Abx due to persistent fevers yesterday. ID is also back on the case. Continue IV Abx per ID and f/u on cultures data for sensitivity. Patient also failed PST yesterday, continue daily PST as tolerated. Electrolytes repleted, repeat labs in the am. 12/18: Patient blood cultures is growing GPC 4 out 4 bottles. PICC line D/Sara, patient is already on IV Abx-cefepine and Vanc and ID is following. Patient remains hemodynamically stable. Daily PST as tolerated adn PRN Benzo for anx iety. 12/19: [facility] overnight. Culture data noted, continue IV Abx per ID. Orders placed for repeat Bculture. Sánchez D/C overnight, patient is voiding. Check bladder scan as needed for retention. Patient failed PST again today. Continue daily PST as tolerated. 12/20: Fevers improved, Cultures +MRSA, on Vanco per ID. Repeat 2D Echo to r/o endocarditis. Patient continue to fail PST, PEEP increased to 8 today. Continue pulmonary hygiene and vent wean per [facility]. Sodium tab added for hyponatremia. 12/21: Remains afebrile, repeat B.culture with NGTD, 2D echo noted with no obvious vegetation noted. Continue IV Vanc per ID. Hyponatremia improved. Tolerating PST this am, Continue daily PST. 12/22: Patient on pressure support trial for approximately 4 hours today, midodrine dosage increased due to hypotension. Lasix discontinued. 12/23: Started on a.m. Seroquel dose, midodrine increased to 10 mg 3 times daily, 500 mL normal saline bolus. 12/24: Seroquel dose changed (25 every morning, 75 nightly). updated at bedside by Dr. De León. CPAP trials as tolerated. Continue vancomycin. Awaiting placement. 12/25: Continue CPAP as tolerated, added gasx for distention. Continue supportive care 12/26: Patient failed PSV this AM. no acute events overnight. 12/27: GI re-consulted due to abdominal distention. No acute events reported overnight. CPAP trials as tolerated. Dr. Mckenna will get a KUB to rule out possible obstruction. 12/28: KUB shows no acute process, CXR shows improvement. CPAP trials as tolerated. 12/29: CT Abd/pelvis noted with moderated bilateral pleural effusion, anasarca, and ascites. X1dose of IV lasix administered. D/w CCM and GI orders plan for thora and paracentesis by IR. Will also start patient on aldactone Qday. Patient is tolerating trickle feeds this am, continue TF and BR adjusted for constipation. Plan of care was discussed with patient and her at the bedside. Thorough discussion on patient's overall poor prognosis and that patient will most likely be vent dependent. Patient's voiced understanding of the info given. All questions and concerns were voiced at this time. 12/30: Patient did not tolerate thoracentesis in IR yesterday due to change in LOC and hypoxia. Plan for possible bedside thoracentesis and paracentesis today. Patient remains afebrile. Patient required dba IV abx therapy Q60oybe left, orders placed for a PICC. Patient remains with sign. Piting edema and anasarca, X1 does of PO Zaroxolyn and 2m of IV lasix given. Electrolytes repleted, repeat lab in the am. 12/31: Tolerated Rt. thoracentesis at the bedside yesterday, 1.4L removed. Patient remains stable on the vent this am, tolerating CPAP today PS dropped to 14. Recent CXR noted, left pleural effusion improved. Patient tolerated gentle diurese yesterday, good urine output reported. D/w CCM hold off on Left thoracentesis today, continue PO Aldactone and additonal zaroxolyn and IV lasix again today. F/u CXR in the am. Assessment and Plan #MRSA Bacteremia #MRSA Pneumonia #Septic Shock POA-resolved - Presented with fevers, leukocytosis, and hypotension - COVID PCR negative - 11/04 Bcult with 3/4 group B strep bacteremia, [id number] Bculture NGTD - 11/04 2D Echo with no evidence of vegetation - New fevers on 12/16- Blood and sputum culture with MRSA - 12/16- UA is unremarkable - 12/18 repeat B.culture with NGTD - 12/19 Repeat 2D echo- with no obvious vegetation noted. EF 35-40% - ID on consult, appreciate recommendations - Continue IV Abx- Vanco per ID recs. control equipment electrician therapy, need a PICC - Trend CBC #Acute Hypoxic Respiratory Failure 11/19 #MRSA Pneumonia #Bilateral Pleural Effusion #Right Pneumothorax-resolved - COVID PCR negative - CXR shows Bilateral opacities, may be volume overloaded - CCM consulted, appreciate recommendations - Intubated on 11/06, ETT exchanged on 11/11 - 11/11 Bronchoscopy--Complicated by spontaneous pneumothorax - 11/11 S/p chest tube placement for right pneumothorax, removed by patient on 11/15 - 11/26 s/p Tracheostomy and PEGtube placement - 12/11 thoracentesis due to moderate pleural effusion-1L removed - This am Vent Setting:CPAP-30%,8 PS-14 - Continue Nebs treatment - Continue daily PST as tolerated - VAP bundle addressed - Aspiration precaution HOB above 30 - PRN ABG and CXR per CCM - Continue SPO2 monitoring for SPO2 goal above 92% - 12/28 CT Abd/Pelvis noted - Plan for possible Thoracentesis and Paracentesis by IR #CHF- EF 30-35% with PPM #Hypotension-resolved #Septic Kristian-resolved - SR on the monitor, HR 70-90s - 11/04 Echo-EF 30-35% - 12/19 Repeat EF 35-40% - Continue beta-charleen - Not on aspirin due to allergy - Statins resumed - Continue blood pressure monitor per protocol - Maintain MAP above 65 - Cardiology signed off #Acute Microcytic Anemia #Acute Blood Loss-resolved #Acute GI Bleed-resolved - s/p a total of 7units of PRBCs since admit - 11/18 EGD- Large cratered ulcer in the posterior duodenal bulb about 2 cm in diameter. Visible vessel present. Mild active oozing from the ulcer bed. A total of 3 injections were performed around the ulcer for a total of 2.5 cc of dilute epinephrine and hemostasis was obtained.--> See full report - GI signed off - Stool occult still positive - H&H stable - Continue PPI and Carafate - Continue to trend CBC - Transfuse for H&H less than 7 - Hold AC for now #Hyponatremia #Hypokalemia - On PO lasix - X1 dose of PO sodium tab given - Strict intake and output - Continue to monitor and replace electrolytes as needed - Trend BMP,mag, & phosp #Urinary Retention-resolved - Sánchez reinserted on 11/19 for retention - Sánchez D/sara, patient is voiding - Bladder scan with no residual #Acute DVT in RLE - BLE doppler + Acute DVT in the right external iliac vein, common femoral vein, and superior aspect of femoral vein - Was on Therapeutic Lovenox- held to due GI Bleed - 11/17 s/p IVC filter placement by Vascular Surg #Agitation/Anxiety #Chronic Pain #Acute Encephalopathy-Resolved - Awake and following commands - Continue Buspar and seroquel - PRN Xanax for anxiety - CT head and EEG noted - Neurology consulted - PRN analgesia for pain management #Transaminitis/Shock Liver - Probably due to bacteria/spetic shock - Continue to Trend LFTs #Endo: h/o DM and hypothyroidism - Continue home Synthroid - Accu-Cheks every 6hrs - Avoid hypoglycemia The high probability of a clinically significant, sudden or life threatening deterioration of the [multi] system(s) required my full and direct attention, intervention and personal management. The aggregate critical care time was [60] minutes. This time is in addition to time spent performing reported procedures but includes the following: [x] Data Review and interpretation [x] Patient assessment and monitoring of vital signs [x] Documentation [x] Medication orders and management Disposition Plan: ICU Total Time Spent with Patient (Minutes): 60 History Interval history: Patient seen and examined at the bedside. Remains stable on the vent, AAO, following commands. Tolerating PST this am. [facility] overnight Hospitalist Physical - Constitutional Vitals: Temp Pulse Resp BP Pulse Ox 98.1 F 84 15 132/45 99 12/31/21 08:00 12/31/21 11:00 12/31/21 11:00 12/31/21 11:00 12/31/21 11:00 General appearance: Present: no acute distress, other (Trach and on the vent) - EENT Eyes: Present: PERRL ENT: other (NAPAIMUTE) - Neck Neck: Present: normal ROM - Respiratory Respiratory effort: normal Respiratory: bilateral: diminished - Cardiovascular Rhythm: regular Heart Sounds: Present: S1 & S2 - Extremities Extremities: no ischemia, pulses intact, pulses symmetrical Extremity abnormal: edema - Peripheral Assessment Generalized Edema Type: Pitting Edema Degree: 3+ Capillary Refill: < 3 seconds Skin Temperature: Warm Peripheral Pulses: within normal limits - Abdominal General gastrointestinal: soft, non-distended, normal bowel sounds - Integumentary Integumentary: Present: warm, dry - Psychiatric Psychiatric: appropriate mood/affect, cooperative - Neurologic Neurologic: moves all extremities - Allied Health Allied health notes reviewed: nursing, case management HEART Score - HEART Score Troponin: Troponin T 0.045 ng/mL (0.00-0.029) H 11/29/21 20:15 Results - Labs CBC & Chem 7: 12/31/21 04:00 12/31/21 04:00 Labs: Laboratory Last Values WBC 10.8 K/mm3 (4.5-11.0) 12/31/21 04:00 RBC 3.05 M/mm3 (3.65-5.03) L 12/31/21 04:00 Hgb 8.5 gm/dl (10.1-14.3) L 12/31/21 04:00 Hct 25.5 % (30.3-42.9) L 12/31/21 04:00 MCV 84 fl (79-97) 12/31/21 04:00 MCH 28 pg (28-32) 12/31/21 04:00 MCHC 34 % (30-34) 12/31/21 04:00 RDW 18.2 % (13.2-15.2) H 12/31/21 04:00 Plt Count 258 K/mm3 (140-440) 12/31/21 04:00 Add Manual Diff Complete 12/20/21 04:54 Total Counted 100 12/20/21 04:54 Seg Neutrophils % Pitch Worker 11/06/21 15:50 Seg Neuts % (Manual) 88.0 % (40.0-70.0) H 12/20/21 04:54 Band Neutrophils % 0 % 12/20/21 04:54 Lymphocytes % (Manual) 6.0 % (13.4-35.0) L 12/20/21 04:54 Reactive Lymphs % (Man) 0 % 12/20/21 04:54 Monocytes % (Manual) 5.0 % (0.0-7.3) 12/20/21 04:54 Eosinophils % (Manual) 1.0 % (0.0-4.3) 12/20/21 04:54 Basophils % (Manual) 0 % (0.0-1.8) 12/20/21 04:54 Metamyelocytes % 0 % 12/20/21 04:54 Myelocytes % 0 % 12/20/21 04:54 Promyelocytes % 0 % 12/20/21 04:54 Blast Cells % 0 % 12/20/21 04:54 Nucleated RBC % Not Reportable 12/20/21 04:54 Seg Neutrophils # Man 10.8 K/mm3 (1.8-7.7) H 12/20/21 04:54 Band Neutrophils # 0.0 K/mm3 12/20/21 04:54 Lymphocytes # (Manual) 0.7 K/mm3 (1.2-5.4) L 12/20/21 04:54 Abs React Lymphs (Man) 0.0 K/mm3 12/20/21 04:54 Monocytes # (Manual) 0.6 K/mm3 (0.0-0.8) 12/20/21 04:54 Eosinophils # (Manual) 0.1 K/mm3 (0.0-0.4) 12/20/21 04:54 Basophils # (Manual) 0.0 K/mm3 (0.0-0.1) 12/20/21 04:54 Metamyelocytes # 0.0 K/mm3 12/20/21 04:54 Myelocytes # 0.0 K/mm3 12/20/21 04:54 Promyelocytes # 0.0 K/mm3 12/20/21 04:54 Blast Cells # 0.0 K/mm3 12/20/21 04:54 WBC Morphology Not Reportable 12/20/21 04:54 Hypersegmented Neuts Not Reportable 12/20/21 04:54 Hyposegmented Neuts Not Reportable 12/20/21 04:54 Hypogranular Neuts Not Reportable 12/20/21 04:54 Smudge Cells Not Reportable 12/20/21 04:54 Toxic Granulation Not Reportable 12/20/21 04:54 Toxic Vacuolation Not Reportable 12/20/21 04:54 Dohle Bodies Not Reportable 12/20/21 04:54 Pelger-Huet Anomaly Not Reportable 12/20/21 04:54 Irina Rods Not Reportable 12/20/21 04:54 Platelet Estimate Consistent w auto 12/20/21 04:54 Clumped Platelets Not Reportable 12/20/21 04:54 Plt Clumps, EDTA Not Reportable 12/20/21 04:54 Large Platelets Not Reportable 12/20/21 04:54 Giant Platelets Not Reportable 12/20/21 04:54 Platelet Satelliting Not Reportable 12/20/21 04:54 Plt Morphology Comment Not Reportable 12/20/21 04:54 RBC Morphology Not Reportable 12/20/21 04:54 Dimorphic RBCs Not Reportable 12/20/21 04:54 Polychromasia Not Reportable 12/20/21 04:54 Hypochromasia Not Reportable 12/20/21 04:54 Poikilocytosis Not Reportable 12/20/21 04:54 Anisocytosis 1+ 12/20/21 04:54 Microcytosis Not Reportable 12/20/21 04:54 Macrocytosis Not Reportable 12/20/21 04:54 Spherocytes Not Reportable 12/20/21 04:54 Pappenheimer Bodies Not Reportable 12/20/21 04:54 Sickle Cells Not Reportable 12/20/21 04:54 Target Cells Not Reportable 12/20/21 04:54 Tear Drop Cells Not Reportable 12/20/21 04:54 Ovalocytes Not Reportable 12/20/21 04:54 Helmet Cells Not Reportable 12/20/21 04:54 [place] Bodies Not Reportable 12/20/21 04:54 [place] Rings Not Reportable 12/20/21 04:54 Malcom Cells Not Reportable 12/20/21 04:54 Bite Cells Not Reportable 12/20/21 04:54 Crenated Cell Not Reportable 12/20/21 04:54 Elliptocytes Not Reportable 12/20/21 04:54 Acanthocytes (Spur) Not Reportable 12/20/21 04:54 Rouleaux Not Reportable 12/20/21 04:54 Hemoglobin C Crystals Not Reportable 12/20/21 04:54 Schistocytes Not Reportable 12/20/21 04:54 Malaria parasites Not Reportable 12/20/21 04:54 Godfrey Bodies Not Reportable 12/20/21 04:54 Hem Pathologist Commnt No 12/20/21 04:54 PT 16.9 Sec. (12.2-14.9) H 11/26/21 05:00 INR 1.24 (0.87-1.13) H 11/26/21 05:00 APTT 29.2 Sec. (24.2-36.6) 11/26/21 05:00 D-Dimer 2655.00 ng/mlDDU (0-234) H 11/11/21 04:28 ABG pH 7.479 pH Units (7.350-7.450) H 12/16/21 20:52 ABG pCO2 37.5 mm Hg 12/16/21 20:52 ABG pO2 79.3 mm Hg (80.0-90.0) L 12/16/21 20:52 ABG HCO3 27.3 mmol/L (20.0-26.0) H 12/16/21 20:52 ABG O2 Saturation 97.0 % (95.0-99.0) 12/16/21 20:52 ABG O2 Content 12.3 (0.0-44) 12/16/21 20:52 ABG Base Excess 3.6 mmol/L (-2.0-3.0) H 12/16/21 20:52 ABG Hemoglobin 9.1 gm/dl (12.0-16.0) L 12/16/21 20:52 ABG Carboxyhemoglobin 1.6 % (0.0-5.0) 12/16/21 20:52 ABG Methemoglobin 0.5 % (0.0-1.5) 12/16/21 20:52 Oxyhemoglobin 94.9 % (95.0-99.0) L 12/16/21 20:52 FiO2 30 % 12/16/21 20:52 Sodium 137 mmol/L (137-145) 12/31/21 04:00 Potassium 4.0 mmol/L (3.6-5.0) 12/31/21 04:00 Chloride 98.6 mmol/L (98-107) 12/31/21 04:00 Carbon Dioxide 27 mmol/L (22-30) 12/31/21 04:00 Anion Gap 15 mmol/L 12/31/21 04:00 BUN 19 mg/dL (7-17) H 12/31/21 04:00 Creatinine 0.4 mg/dL (0.6-1.2) L 12/31/21 04:00 Estimated GFR > 60 ml/min 12/31/21 04:00 BUN/Creatinine Ratio 48 % 12/31/21 04:00 Glucose 116 mg/dL (65-100) H 12/31/21 04:00 POC Glucose 116 mg/dL (70-105) H 12/31/21 11:23 Lactic Acid 3.70 mmol/L (0.7-2.0) H* 11/03/21 22:32 Calcium 8.5 mg/dL (8.4-10.2) 12/31/21 04:00 Phosphorus 3.20 mg/dL (2.5-4.5) 12/31/21 04:00 Magnesium 1.90 mg/dL (1.7-2.3) 12/31/21 04:00 Ferritin 52.6 ng/mL (10.0-200.0) 11/05/21 06:11 Total Bilirubin 0.50 mg/dL (0.1-1.2) 11/17/21 05:56 Direct Bilirubin < 0.2 mg/dL (0-0.2) 11/11/21 04:28 Indirect Bilirubin 0.1 mg/dL 11/11/21 04:28 AST 36 units/L (5-40) 11/17/21 05:56 ALT 47 units/L (7-56) 11/17/21 05:56 Alkaline Phosphatase 107 units/L (35-129) 11/17/21 05:56 Ammonia 42.0 umol/L (25-60) 11/10/21 14:08 Lactate Dehydrogenase 187 units/L (91-180) H 11/05/21 06:11 Troponin T 0.045 ng/mL (0.00-0.029) H 11/29/21 20:15 C-Reactive Protein 22.20 mg/dL (0.00-1.30) H 11/05/21 06:11 NT-Pro-B Natriuret Pep 7895 pg/mL (0-900) H 11/03/21 22:32 Total Protein 5.1 g/dL (6.3-8.2) L 11/17/21 05:56 Albumin 2.2 g/dL (3.9-5) L 11/17/21 05:56 Albumin/Globulin Ratio 0.8 % 11/17/21 05:56 Triglycerides 59 mg/dL (2-149) 11/29/21 20:15 Cholesterol 74 mg/dL (50-199) 11/29/21 20:15 LDL Cholesterol Direct 25 mg/dL (50-130) L 11/29/21 20:15 HDL Cholesterol 41 mg/dL (40-59) 11/29/21 20:15 Cholesterol/HDL Ratio 1.80 % 11/29/21 20:15 Vitamin B12 1823 pg/mL (211-911) H 11/10/21 14:08 TSH 1.510 mlU/mL (0.270-4.200) 11/10/21 14:08 Urine Color Yellow (Yellow) 11/11/21 09:00 Urine Turbidity Slightly-cloudy (Clear) 11/11/21 09:00 Urine pH 5.0 (5.0-7.0) 11/11/21 09:00 Ur Specific [place] 1.009 (1.003-1.030) 11/11/21 09:00 Urine Protein <15 mg/dl mg/dL (Negative) 11/11/21 09:00 Urine Glucose (UA) Neg mg/dL (Negative) 11/11/21 09:00 Urine Ketones Neg mg/dL (Negative) 11/11/21 09:00 Urine Blood Mod (Negative) 11/11/21 09:00 Urine Nitrite Neg (Negative) 11/11/21 09:00 Urine Bilirubin Neg (Negative) 11/11/21 09:00 Urine Urobilinogen < 2.0 mg/dL (<2.0) 11/11/21 09:00 Ur Leukocyte Esterase Neg (Negative) 11/11/21 09:00 Urine WBC (Auto) < 1.0 /HPF (0.0-6.0) 11/11/21 09:00 Urine RBC (Auto) < 1.0 /HPF (0.0-6.0) 11/11/21 09:00 Vancomycin Trough 14.4 ug/mL (5.0-20.0) 12/26/21 Unknown Coronavirus (PCR) Negative (Negative) 11/10/21 08:30 Blood Type O POSITIVE 12/14/21 10:30 Antibody Screen Negative 12/14/21 10:30 Crossmatch See Detail 12/14/21 10:30 Sánchez/IV: Voiding Method External Female Catheter Active Medications - Current Medications Current Medications: Generic Name Dose Route Start Last Admin Trade Name Freq PRN Reason Stop Dose Admin Acetaminophen 650 mg 12/14/21 04:12 12/16/21 13:34 Acetaminophen 325 Mg/10.15 Ml Oral Liqd Unit Dose FEEDTUBE 650 mg Q6H PRN Administration Non Cardiac Pain or Temp>100.5 Hydrocodone Bitart/Acetaminophen 1 each 11/21/21 10:00 12/31/21 07:56 Hydrocodone/Acetaminophen 10-325mg Tab FEEDTUBE 1 each TID YOSSI Administration Alprazolam 0.25 mg 12/30/21 09:00 12/30/21 21:28 Alprazolam 0.25 Mg Tab FEEDTUBE 0.25 mg Q8H PRN Administration Agitation Lipase/Protease/Amylase 1 each 11/08/21 11:09 Lipase 10,500/Protease 25,000/Amylase 43,750 (Units) Dr Cap FEEDTUBE PRN PRN For Clogged Feeding Tube Buspirone HCl 7.5 mg 12/30/21 10:00 12/31/21 10:22 Buspirone 5 Mg Tab FEEDTUBE 7.5 mg BID YOSSI Administration Dextrose 0 ml 11/10/21 10:52 12/30/21 00:48 Dextrose 10% *Hypoglycemia IV 50 ml PRN PRN Administration Hypoglycemia Docusate Sodium 100 mg 12/30/21 10:00 12/31/21 10:24 Docusate Sodium 100 Mg/10 Ml Oral Liqd FEEDTUBE Not Given BID YOSSI Gabapentin 100 mg 12/30/21 10:00 12/31/21 10:23 Gabapentin 100 Mg Cap FEEDTUBE 100 mg QDAY YOSSI Administration Hydromorphone HCl 0.5 mg 12/08/21 20:06 12/29/21 14:45 Hydromorphone 1 Mg/1 Ml Inj IV 0.5 mg Q3H PRN Administration Pain, Moderate (4-6) Hydrophilic Ointment 1 applic 11/06/21 04:02 Lip Therapy Vaseline TP Q2HR PRN Dry Lips Vancomycin HCl 1 gm in 250 mls @ 166.667 mls/hr 12/29/21 17:00 12/30/21 19:20 Vancomycin/Ns 1 Gm/250 Ml IV 01/26/22 18:29 166.667 mls/hr Q24H YOSSI Administration Protocol Lansoprazole 30 mg 11/24/21 22:00 12/31/21 10:22 Lansoprazole 30 Mg Solutab FEEDTUBE 30 mg BID YOSSI Administration Levothyroxine Sodium 125 mcg 12/31/21 06:00 12/31/21 05:02 Levothyroxine 125 Mcg Tab FEEDTUBE 125 mcg DAILY@0600 [facility] Administration Melatonin 5 mg 12/05/21 22:00 12/30/21 21:28 Melatonin 5 Mg Tab PO 5 mg QHS YOSSI Administration Metoclopramide HCl 5 mg 12/27/21 14:00 12/31/21 05:01 Metoclopramide 10 Mg/2 Ml Inj IV 5 mg Q8H [facility] Administration Metoprolol Tartrate 6.25 mg 12/30/21 10:00 12/31/21 10:21 Metoprolol Tartrate 25 Mg Tab FEEDTUBE 6.25 mg BID [facility] Administration Midodrine 5 mg 12/30/21 09:00 12/31/21 10:24 Midodrine 5 Mg Tab FEEDTUBE Not Given TID@0800,1200,1600 [facility] Multi-Ingred Cream/Lotion/Oil/Oint 1 applic 11/06/21 04:02 Mineral Oil/Petrolatum, White Ophth Oint 3.5 Gm OU Q4HR PRN Dry Eye(s) Ondansetron HCl 4 mg 12/05/21 10:00 12/30/21 21:54 Ondansetron 4 Mg/2 Ml Inj IV 4 mg Q8H PRN Administration Nausea And Vomiting Polyethylene Glycol 17 gm 12/30/21 10:00 12/31/21 10:23 Polyethylene Glycol 3350 17 Gm Powder FEEDTUBE Not Given QDAY [facility] Pravastatin Sodium 20 mg 12/30/21 22:00 12/30/21 21:30 Pravastatin 20 Mg Tab FEEDTUBE 20 mg QHS YOSSI Administration Quetiapine Fumarate 25 mg 12/30/21 10:00 12/31/21 10:22 Quetiapine 25 Mg Tab FEEDTUBE 25 mg QAM YOSSI Administration Quetiapine Fumarate 50 mg 12/30/21 22:00 12/30/21 21:29 Quetiapine 25 Mg Tab FEEDTUBE 50 mg QHS YOSSI Administration Senna 17.6 mg 12/29/21 11:00 12/31/21 10:23 Sennosides Oral Liqd 8.8 Mg/5 Ml Oral Liqd FEEDTUBE Not Given Q12HR YOSSI Simple Syrup 15 ml 11/08/21 11:09 Simple Syrup 15 Ml FEEDTUBE PRN PRN Hypoglycemia Simple Syrup 30 ml 11/08/21 11:09 Simple Syrup 15 Ml FEEDTUBE PRN PRN Hypoglycemia Sodium Bicarbonate 325 mg 11/08/21 11:09 Sodium Bicarbonate 325 Mg Tab FEEDTUBE PRN PRN For Clogged Feeding Tube Sodium Chloride 10 ml 11/04/21 10:00 12/31/21 10:24 Sodium Chloride 0.9% 10 Ml Flush Syringe IV 10 ml BID YOSSI Administration Sodium Chloride 10 ml 11/04/21 02:03 Sodium Chloride 0.9% 10 Ml Flush Syringe IV PRN PRN LINE FLUSH Spironolactone 25 mg 12/30/21 10:00 12/31/21 10:22 Spironolactone 25 Mg Tab FEEDTUBE 25 mg QDAY YOSSI Administration Sucralfate 1 gm 12/30/21 12:00 12/31/21 05:01 Sucralfate 1 Gm/10 Ml Oral Liqd FEEDTUBE 1 gm Q6HR YOSSI Administration Trazodone HCl 50 mg 12/04/21 22:00 12/30/21 21:29 Trazodone 50 Mg Tab PO 50 mg QHS YOSSI Administration Nutrition/Malnutrition Assess - Dietary Evaluation Nutrition/Malnutrition Findings: Nutrition Notes Start: 11/04/21 17:16 Freq: Status: Active Protocol: Document 12/26/21 16:55 YOVANI (Rec: 12/26/21 16:56 NHALL [id number]) Nutrition Notes Initial or Follow up Brief Note Current Diet TF - Vital AF 1.2 at 45ml/hr Subjective/Other Information Per RN, pt tolerating TF at goal rate of 45ml/hr. Pt remains on vent support. Nutrition Intervention Follow-Up By: 01/02/22 Additional Comments F/U: stable TF, vent status, wt <LEAH ALFONSO E - Last Filed: 01/01/22 07:15> Assessment and Plan Assessment and plan: I saw and evaluated the patient. I agree with the findings and the plan of care as documented in the Nurse Practitioner's~note, with the following corrections and additions. Hospitalist Physical - Constitutional Vitals: Temp Pulse Resp BP Pulse Ox 99.5 F 73 13 111/47 98 01/01/22 04:00 01/01/22 06:00 01/01/22 06:00 01/01/22 06:00 01/01/22 06:00 HEART Score - HEART Score Troponin: Troponin T 0.045 ng/mL (0.00-0.029) H 11/29/21 20:15 Results - Labs CBC & Chem 7: 01/01/22 04:31 01/01/22 04:31 Labs: Laboratory Last Values WBC 9.0 K/mm3 (4.5-11.0) 01/01/22 04:31 RBC 2.83 M/mm3 (3.65-5.03) L 01/01/22 04:31 Hgb 7.7 gm/dl (10.1-14.3) L 01/01/22 04:31 Hct 23.2 % (30.3-42.9) L 01/01/22 04:31 MCV 82 fl (79-97) 01/01/22 04:31 MCH 27 pg (28-32) L 01/01/22 04:31 MCHC 33 % (30-34) 01/01/22 04:31 RDW 18.3 % (13.2-15.2) H 01/01/22 04:31 Plt Count 208 K/mm3 (140-440) 01/01/22 04:31 Add Manual Diff Complete 12/20/21 04:54 Total Counted 100 12/20/21 04:54 Seg Neutrophils % Pitch Worker 11/06/21 15:50 Seg Neuts % (Manual) 88.0 % (40.0-70.0) H 12/20/21 04:54 Band Neutrophils % 0 % 12/20/21 04:54 Lymphocytes % (Manual) 6.0 % (13.4-35.0) L 12/20/21 04:54 Reactive Lymphs % (Man) 0 % 12/20/21 04:54 Monocytes % (Manual) 5.0 % (0.0-7.3) 12/20/21 04:54 Eosinophils % (Manual) 1.0 % (0.0-4.3) 12/20/21 04:54 Basophils % (Manual) 0 % (0.0-1.8) 12/20/21 04:54 Metamyelocytes % 0 % 12/20/21 04:54 Myelocytes % 0 % 12/20/21 04:54 Promyelocytes % 0 % 12/20/21 04:54 Blast Cells % 0 % 12/20/21 04:54 Nucleated RBC % Not Reportable 12/20/21 04:54 Seg Neutrophils # Man 10.8 K/mm3 (1.8-7.7) H 12/20/21 04:54 Band Neutrophils # 0.0 K/mm3 12/20/21 04:54 Lymphocytes # (Manual) 0.7 K/mm3 (1.2-5.4) L 12/20/21 04:54 Abs React Lymphs (Man) 0.0 K/mm3 12/20/21 04:54 Monocytes # (Manual) 0.6 K/mm3 (0.0-0.8) 12/20/21 04:54 Eosinophils # (Manual) 0.1 K/mm3 (0.0-0.4) 12/20/21 04:54 Basophils # (Manual) 0.0 K/mm3 (0.0-0.1) 12/20/21 04:54 Metamyelocytes # 0.0 K/mm3 12/20/21 04:54 Myelocytes # 0.0 K/mm3 12/20/21 04:54 Promyelocytes # 0.0 K/mm3 12/20/21 04:54 Blast Cells # 0.0 K/mm3 12/20/21 04:54 WBC Morphology Not Reportable 12/20/21 04:54 Hypersegmented Neuts Not Reportable 12/20/21 04:54 Hyposegmented Neuts Not Reportable 12/20/21 04:54 Hypogranular Neuts Not Reportable 12/20/21 04:54 Smudge Cells Not Reportable 12/20/21 04:54 Toxic Granulation Not Reportable 12/20/21 04:54 Toxic Vacuolation Not Reportable 12/20/21 04:54 Dohle Bodies Not Reportable 12/20/21 04:54 Pelger-Huet Anomaly Not Reportable 12/20/21 04:54 Irina Rods Not Reportable 12/20/21 04:54 Platelet Estimate Consistent w auto 12/20/21 04:54 Clumped Platelets Not Reportable 12/20/21 04:54 Plt Clumps, EDTA Not Reportable 12/20/21 04:54 Large Platelets Not Reportable 12/20/21 04:54 Giant Platelets Not Reportable 12/20/21 04:54 Platelet Satelliting Not Reportable 12/20/21 04:54 Plt Morphology Comment Not Reportable 12/20/21 04:54 RBC Morphology Not Reportable 12/20/21 04:54 Dimorphic RBCs Not Reportable 12/20/21 04:54 Polychromasia Not Reportable 12/20/21 04:54 Hypochromasia Not Reportable 12/20/21 04:54 Poikilocytosis Not Reportable 12/20/21 04:54 Anisocytosis 1+ 12/20/21 04:54 Microcytosis Not Reportable 12/20/21 04:54 Macrocytosis Not Reportable 12/20/21 04:54 Spherocytes Not Reportable 12/20/21 04:54 Pappenheimer Bodies Not Reportable 12/20/21 04:54 Sickle Cells Not Reportable 12/20/21 04:54 Target Cells Not Reportable 12/20/21 04:54 Tear Drop Cells Not Reportable 12/20/21 04:54 Ovalocytes Not Reportable 12/20/21 04:54 Helmet Cells Not Reportable 12/20/21 04:54 [place] Bodies Not Reportable 12/20/21 04:54 [place] Rings Not Reportable 12/20/21 04:54 [place] Cells Not Reportable 12/20/21 04:54 Bite Cells Not Reportable 12/20/21 04:54 Crenated Cell Not Reportable 12/20/21 04:54 Elliptocytes Not Reportable 12/20/21 04:54 Acanthocytes (Spur) Not Reportable 12/20/21 04:54 Rouleaux Not Reportable 12/20/21 04:54 Hemoglobin C Crystals Not Reportable 12/20/21 04:54 Schistocytes Not Reportable 12/20/21 04:54 Malaria parasites Not Reportable 12/20/21 04:54 [place]frey Bodies Not Reportable 12/20/21 04:54 Hem Pathologist Commnt No 12/20/21 04:54 PT 16.9 Sec. (12.2-14.9) H 11/26/21 05:00 INR 1.24 (0.87-1.13) H 11/26/21 05:00 APTT 29.2 Sec. (24.2-36.6) 11/26/21 05:00 D-Dimer 2655.00 ng/mlDDU (0-234) H 11/11/21 04:28 ABG pH 7.479 pH Units (7.350-7.450) H 12/16/21 20:52 ABG pCO2 37.5 mm Hg 12/16/21 20:52 ABG pO2 79.3 mm Hg (80.0-90.0) L 12/16/21 20:52 ABG HCO3 27.3 mmol/L (20.0-26.0) H 12/16/21 20:52 ABG O2 Saturation 97.0 % (95.0-99.0) 12/16/21 20:52 ABG O2 Content 12.3 (0.0-44) 12/16/21 20:52 ABG Base Excess 3.6 mmol/L (-2.0-3.0) H 12/16/21 20:52 ABG Hemoglobin 9.1 gm/dl (12.0-16.0) L 12/16/21 20:52 ABG Carboxyhemoglobin 1.6 % (0.0-5.0) 12/16/21 20:52 ABG Methemoglobin 0.5 % (0.0-1.5) 12/16/21 20:52 Oxyhemoglobin 94.9 % (95.0-99.0) L 12/16/21 20:52 FiO2 30 % 12/16/21 20:52 Sodium 135 mmol/L (137-145) L 01/01/22 04:31 Potassium 3.9 mmol/L (3.6-5.0) 01/01/22 04:31 Chloride 97.7 mmol/L (98-107) L 01/01/22 04:31 Carbon Dioxide 27 mmol/L (22-30) 01/01/22 04:31 Anion Gap 14 mmol/L 01/01/22 04:31 BUN 21 mg/dL (7-17) H 01/01/22 04:31 Creatinine 0.5 mg/dL (0.6-1.2) L 01/01/22 04:31 Estimated GFR > 60 ml/min 01/01/22 04:31 BUN/Creatinine Ratio 42 % 01/01/22 04:31 Glucose 127 mg/dL (65-100) H 01/01/22 04:31 POC Glucose 124 mg/dL (70-105) H 01/01/22 05:24 Lactic Acid 3.70 mmol/L (0.7-2.0) H* 11/03/21 22:32 Calcium 8.0 mg/dL (8.4-10.2) L 01/01/22 04:31 Phosphorus 3.20 mg/dL (2.5-4.5) 12/31/21 04:00 Magnesium 1.90 mg/dL (1.7-2.3) 12/31/21 04:00 Ferritin 52.6 ng/mL (10.0-200.0) 11/05/21 06:11 Total Bilirubin 0.50 mg/dL (0.1-1.2) 11/17/21 05:56 Direct Bilirubin < 0.2 mg/dL (0-0.2) 11/11/21 04:28 Indirect Bilirubin 0.1 mg/dL 11/11/21 04:28 AST 36 units/L (5-40) 11/17/21 05:56 ALT 47 units/L (7-56) 11/17/21 05:56 Alkaline Phosphatase 107 units/L (35-129) 11/17/21 05:56 Ammonia 42.0 umol/L (25-60) 11/10/21 14:08 Lactate Dehydrogenase 187 units/L (91-180) H 11/05/21 06:11 Troponin T 0.045 ng/mL (0.00-0.029) H 11/29/21 20:15 C-Reactive Protein 22.20 mg/dL (0.00-1.30) H 11/05/21 06:11 NT-Pro-B Natriuret Pep 7895 pg/mL (0-900) H 11/03/21 22:32 Total Protein 5.1 g/dL (6.3-8.2) L 11/17/21 05:56 Albumin 2.2 g/dL (3.9-5) L 11/17/21 05:56 Albumin/Globulin Ratio 0.8 % 11/17/21 05:56 Triglycerides 59 mg/dL (2-149) 11/29/21 20:15 Cholesterol 74 mg/dL (50-199) 11/29/21 20:15 LDL Cholesterol Direct 25 mg/dL (50-130) L 11/29/21 20:15 HDL Cholesterol 41 mg/dL (40-59) 11/29/21 20:15 Cholesterol/HDL Ratio 1.80 % 11/29/21 20:15 Vitamin B12 1823 pg/mL (211-911) H 11/10/21 14:08 TSH 1.510 mlU/mL (0.270-4.200) 11/10/21 14:08 Urine Color Yellow (Yellow) 11/11/21 09:00 Urine Turbidity Slightly-cloudy (Clear) 11/11/21 09:00 Urine pH 5.0 (5.0-7.0) 11/11/21 09:00 Ur Specific [place] 1.009 (1.003-1.030) 11/11/21 09:00 Urine Protein <15 mg/dl mg/dL (Negative) 11/11/21 09:00 Urine Glucose (UA) Neg mg/dL (Negative) 11/11/21 09:00 Urine Ketones Neg mg/dL (Negative) 11/11/21 09:00 Urine Blood Mod (Negative) 11/11/21 09:00 Urine Nitrite Neg (Negative) 11/11/21 09:00 Urine Bilirubin Neg (Negative) 11/11/21 09:00 Urine Urobilinogen < 2.0 mg/dL (<2.0) 11/11/21 09:00 Ur Leukocyte Esterase Neg (Negative) 11/11/21 09:00 Urine WBC (Auto) < 1.0 /HPF (0.0-6.0) 11/11/21 09:00 Urine RBC (Auto) < 1.0 /HPF (0.0-6.0) 11/11/21 09:00 Vancomycin Trough 14.4 ug/mL (5.0-20.0) 12/26/21 Unknown Coronavirus (PCR) Negative (Negative) 11/10/21 08:30 Blood Type O POSITIVE 12/14/21 10:30 Antibody Screen Negative 12/14/21 10:30 Crossmatch See Detail 12/14/21 10:30 Sánchez/IV: Voiding Method External Female Catheter Active Medications - Current Medications Current Medications: Generic Name Dose Route Start Last Admin Trade Name Freq PRN Reason Stop Dose Admin Acetaminophen 650 mg 12/14/21 04:12 12/16/21 13:34 Acetaminophen 325 Mg/10.15 Ml Oral Liqd Unit Dose FEEDTUBE 650 mg Q6H PRN Administration Non Cardiac Pain or Temp>100.5 Hydrocodone Bitart/Acetaminophen 1 each 11/21/21 10:00 12/31/21 20:53 Hydrocodone/Acetaminophen 10-325mg Tab FEEDTUBE 1 each TID YOSSI Administration Alprazolam 0.25 mg 12/30/21 09:00 12/31/21 20:53 Alprazolam 0.25 Mg Tab FEEDTUBE 0.25 mg Q8H PRN Administration Agitation Lipase/Protease/Amylase 1 each 11/08/21 11:09 Lipase 10,500/Protease 25,000/Amylase 43,750 (Units) Dr Cap FEEDTUBE PRN PRN For Clogged Feeding Tube Buspirone HCl 7.5 mg 12/30/21 10:00 12/31/21 21:02 Buspirone 5 Mg Tab FEEDTUBE 7.5 mg BID YOSSI Administration Dextrose 0 ml 11/10/21 10:52 12/30/21 00:48 Dextrose 10% *Hypoglycemia IV 50 ml PRN PRN Administration Hypoglycemia Docusate Sodium 100 mg 12/30/21 10:00 12/31/21 21:04 Docusate Sodium 100 Mg/10 Ml Oral Liqd FEEDTUBE Not Given BID YOSSI Gabapentin 100 mg 12/30/21 10:00 12/31/21 10:23 Gabapentin 100 Mg Cap FEEDTUBE 100 mg QDAY YOSSI Administration Hydromorphone HCl 0.5 mg 12/08/21 20:06 12/29/21 14:45 Hydromorphone 1 Mg/1 Ml Inj IV 0.5 mg Q3H PRN Administration Pain, Moderate (4-6) Hydrophilic Ointment 1 applic 11/06/21 04:02 Lip Therapy Vaseline TP Q2HR PRN Dry Lips Vancomycin HCl 1 gm in 250 mls @ 166.667 mls/hr 12/29/21 17:00 12/31/21 19:09 Vancomycin/Ns 1 Gm/250 Ml IV 01/26/22 18:29 166.667 mls/hr Q24H YOSSI Administration Protocol Lansoprazole 30 mg 11/24/21 22:00 12/31/21 21:02 Lansoprazole 30 Mg Solutab FEEDTUBE 30 mg BID YOSSI Administration Levothyroxine Sodium 125 mcg 12/31/21 06:00 01/01/22 05:41 Levothyroxine 125 Mcg Tab FEEDTUBE 125 mcg DAILY@0600 [facility] Administration Melatonin 5 mg 12/05/21 22:00 12/31/21 21:02 Melatonin 5 Mg Tab PO 5 mg QHS YOSSI Administration Metoclopramide HCl 5 mg 12/27/21 14:00 01/01/22 05:41 Metoclopramide 10 Mg/2 Ml Inj IV 5 mg Q8H YOSSI Administration Metoprolol Tartrate 6.25 mg 12/30/21 10:00 12/31/21 21:02 Metoprolol Tartrate 25 Mg Tab FEEDTUBE 6.25 mg BID [facility] Administration Midodrine 5 mg 12/30/21 09:00 12/31/21 19:05 Midodrine 5 Mg Tab FEEDTUBE Not Given TID@0800,1200,1600 [facility] Multi-Ingred Cream/Lotion/Oil/Oint 1 applic 11/06/21 04:02 Mineral Oil/Petrolatum, White Ophth Oint 3.5 Gm OU Q4HR PRN Dry Eye(s) Ondansetron HCl 4 mg 12/05/21 10:00 12/30/21 21:54 Ondansetron 4 Mg/2 Ml Inj IV 4 mg Q8H PRN Administration Nausea And Vomiting Polyethylene Glycol 17 gm 12/30/21 10:00 12/31/21 10:23 Polyethylene Glycol 3350 17 Gm Powder FEEDTUBE Not Given QDAY [facility] Pravastatin Sodium 20 mg 12/30/21 22:00 12/31/21 21:02 Pravastatin 20 Mg Tab FEEDTUBE 20 mg QHS YOSSI Administration Quetiapine Fumarate 25 mg 12/30/21 10:00 12/31/21 10:22 Quetiapine 25 Mg Tab FEEDTUBE 25 mg QAM YOSSI Administration Quetiapine Fumarate 50 mg 12/30/21 22:00 12/31/21 21:03 Quetiapine 25 Mg Tab FEEDTUBE 50 mg QHS YOSSI Administration Senna 17.6 mg 12/29/21 11:00 12/31/21 21:04 Sennosides Oral Liqd 8.8 Mg/5 Ml Oral Liqd FEEDTUBE Not Given Q12HR YOSSI Simple Syrup 15 ml 11/08/21 11:09 Simple Syrup 15 Ml FEEDTUBE PRN PRN Hypoglycemia Simple Syrup 30 ml 11/08/21 11:09 Simple Syrup 15 Ml FEEDTUBE PRN PRN Hypoglycemia Sodium Bicarbonate 325 mg 11/08/21 11:09 Sodium Bicarbonate 325 Mg Tab FEEDTUBE PRN PRN For Clogged Feeding Tube Sodium Chloride 10 ml 11/04/21 10:00 12/31/21 21:03 Sodium Chloride 0.9% 10 Ml Flush Syringe IV 10 ml BID YOSSI Administration Sodium Chloride 10 ml 11/04/21 02:03 Sodium Chloride 0.9% 10 Ml Flush Syringe IV PRN PRN LINE FLUSH Spironolactone 25 mg 12/30/21 10:00 12/31/21 10:22 Spironolactone 25 Mg Tab FEEDTUBE 25 mg QDAY YOSSI Administration Sucralfate 1 gm 12/30/21 12:00 01/01/22 05:41 Sucralfate 1 Gm/10 Ml Oral Liqd FEEDTUBE 1 gm Q6HR YOSSI Administration Trazodone HCl 50 mg 12/04/21 22:00 12/31/21 21:02 Trazodone 50 Mg Tab PO 50 mg QHS YOSSI Administration Nutrition/Malnutrition Assess - Dietary Evaluation Nutrition/Malnutrition Findings: Nutrition Notes Start: 11/04/21 17:16 Freq: Status: Active Protocol: Document 12/26/21 16:55 YOVANI (Rec: 12/26/21 16:56 COARMEN [id number]) Nutrition Notes Initial or Follow up Brief Note Current Diet TF - Vital AF 1.2 at 45ml/hr Subjective/Other Information Per RN, pt tolerating TF at goal rate of 45ml/hr. Pt remains on vent support. Nutrition Intervention Follow-Up By: 01/02/22 Additional Comments F/U: stable TF, vent status, wt
[2021-12-31] MEDS ORDERED: FUROSEMIDE 40 MG/4 ML INJ IV ONE (13:00)
--- NOTE | 2021-12-31 14:00 | Progress Note ---
Assessment and Plan Severe Sepsis POA vs septic shock- 11/03/2021 blood culture: 2 sets positive for GPC -Repeat cultures positive for MRSA Acute respiratory failure with hypoxia, s/p trach on MVS Acute microcytic anemia Bilateral pneumonia Left pleural effusion Cardiomyopathy EF 30-35% Moderate pulmonary HTN RVSP 49 Acute DVT s/p IVC Anemia Mild hyponatremia Daily SBTs as tolerated- titrate PS to maintain tidal volumes at least 300 Hold off on left thoracentesis today. Continue Spironolactone to help with recurrent edema Diuretic therapy as tolerated by renal function and hemodynamics. Monitor renal function Continue to monitor hemoglobin and transfuse as clinically indicated to keep HgB>7g/dL Continue to optimize enteric nutritional support Maintain sleep-wake cycle PT/OT, increase activity Antibiotics per ID - continue to titrate supplemental oxygen to keep SPO2 88-90% - VAP bundle addressed, aspiration precautions, HOB >40 - continue bronchodilators with pulmonary hygiene per RT - continue avoid nephrotoxins, renally dose all medications - Accuchecks with glycemic control per SSI (While critically ill target blood glucose of 140-180 mg/dL; avoid hypoglycemia) - continue to avoid benzodiazepines, reduce the possibility of delirium -trend temperature curve, trend WCC, - Maintenance of sleep-wake cycle, avoid delirium -Stress ulcer prophylaxis (Lansoprazole) -VTE prophyalxis- s/p IVC filter. No anticoagulation 11/18 EGD- Large cratered ulcer in the posterior duodenal bulb about 2 cm in diameter.Visible vessel present. Mild active oozing from the ulcer bed. A total of 3 injections were performed around the ulcer for a total of 2.5 cc of dilute epinephrine and hemostasis was obtained. -mobility, off loading and frequent turning to prevent pressure ulcer -continue with enteric nutritional support via PEG,at goal rate - Continue to monitor hemodynamics closely - continue other care per attending / other consultants COVID SPECIFIC INTERVENTIONS - Negative CONDITION: FAIR PROGNOSIS: GUARDED CODE STATUS: FULL CODE The high probability of a clinically significant, sudden or life-threatening d eterioration of the [respiratory, cardiovascular and hematologic] system(s) required my full and direct attention, intervention and personal management. The aggregate critical care time was [33] minutes without overlap. Time includes spent on; [x] Data Review and interpretation [x] Patient assessment and monitoring of vital signs [x] Documentation [x] Medication orders and management Subjective Date of service: 12/31/21 Principal diagnosis: Septic shock; AHRF; Anemia; Pneumonia; pleural effusion; HFrEF; Pulm HTN Interval history: Follow up fro acute hypoxemic resp failure s/p tracheostomy to MVS ; Septic and cardiogenic shock; severe anemia; Patient seen and examined. Vitals, labs, medications, chart and imaging reviewed. Discussed with respiratory and nursing care staff. On full support, not tolerating SBTs. Awake and alert, interactive- generalized edema Did not tolerate thoracentes yesterday- episodes of desaturations and hypotesnion. 12/31/2021 Tolerated Rt. thoracentesis at the bedside yesterday, 1.4L removed. Patient remains stable on the vent this am, tolerating CPAP today PS dropped to 14. Recent CXR noted, left pleural effusion improved. Tolerating intermittent diur etic therapy Objective Vital Signs - 12hr 12/31/21 12/31/21 12/31/21 02:00 03:00 04:00 Temperature 98.8 F Pulse Rate 68 71 87 Pulse Rate [ 86 From Monitor] Respiratory 16 14 16 Rate Blood Pressure 119/55 120/55 74/48 O2 Sat by Pulse 99 81 L 99 Oximetry 12/31/21 12/31/21 12/31/21 04:01 05:00 06:00 Temperature Pulse Rate 93 H 82 78 Pulse Rate [ From Monitor] Respiratory 16 14 17 Rate Blood Pressure 110/62 144/68 107/52 O2 Sat by Pulse 95 99 100 Oximetry 12/31/21 12/31/21 12/31/21 07:00 07:56 08:00 Temperature 98.1 F Pulse Rate 77 80 Pulse Rate [ 80 From Monitor] Respiratory 7 L 13 16 Rate Blood Pressure 140/57 O2 Sat by Pulse 100 100 Oximetry 12/31/21 12/31/21 12/31/21 08:01 08:25 08:56 Temperature Pulse Rate 91 H 78 Pulse Rate [ From Monitor] Respiratory 12 15 Rate Blood Pressure 121/94 108/47 O2 Sat by Pulse 98 98 Oximetry 12/31/21 12/31/21 12/31/21 09:00 10:01 10:21 Temperature Pulse Rate 78 78 75 Pulse Rate [ From Monitor] Respiratory 13 13 Rate Blood Pressure 113/44 125/67 127/56 O2 Sat by Pulse 99 100 Oximetry 12/31/21 12/31/21 12/31/21 10:22 11:00 12:00 Temperature 98.5 F Pulse Rate 74 84 Pulse Rate [ 87 From Monitor] Respiratory 15 16 Rate Blood Pressure 127/56 132/45 O2 Sat by Pulse 99 100 Oximetry 12/31/21 12/31/21 12:01 12:48 Temperature Pulse Rate 79 77 Pulse Rate [ From Monitor] Respiratory 13 18 Rate Blood Pressure 115/40 88/69 O2 Sat by Pulse 100 100 Oximetry Constitutional: alert, appears uncomfortable (restless really), other (trach to MVS, frail elderly woman with mildly increased respiratory effort at rest) Eyes: non-icteric ENT: oropharynx moist, other (+ Midline tracheostomy with minimal secretions) Neck: supple, no lymphadenopathy, no JVD Effort: mildly labored Ascultation: Bilateral: diminished breath sounds, rhonchi, other (Right chest tube) Percussion: Bilateral: not dull Cardiovascular: regular rate and rhythm, other (S1,S2) Gastrointestinal: normoactive bowel sounds, soft, non-tender, non-distended (protuberant) Integumentary: normal Extremities: no cyanosis, pink and warm, pulses normal, edema (upper etremities), anasarca Neurologic: non-focal exam (grossly), pupils equal and round, motor strength normal and Psychiatric: mood appropriate, affect normal CBC and BMP: 01/06/22 04:06 01/10/22 04:00 ABG, PT/INR, D-dimer: ABG ABG pH 7.479 pH Units (7.350-7.450) H 12/16/21 20:52 ABG pCO2 37.5 mm Hg 12/16/21 20:52 ABG pO2 79.3 mm Hg (80.0-90.0) L 12/16/21 20:52 ABG O2 Saturation 97.0 % (95.0-99.0) 12/16/21 20:52 PT/INR, D-dimer PT 16.9 Sec. (12.2-14.9) H 11/26/21 05:00 INR 1.24 (0.87-1.13) H 11/26/21 05:00 D-Dimer 2655.00 ng/mlDDU (0-234) H 11/11/21 04:28 Abnormal lab findings: Abnormal Labs 01/11/03/21 11/03/21 22:32 22:32 22:32 WBC 29.3 H RBC 2.93 L Hgb 6.1 L Hct 21.9 L MCV 75 L MCH 21 L MCHC 28 L RDW 19.7 H Plt Count Seg Neuts % (Manual) 97.0 H Lymphocytes % (Manual) 3.0 L Seg Neutrophils # Man 28.4 H Lymphocytes # (Manual) 0.9 L Monocytes # (Manual) PT 18.6 H INR 1.40 H D-Dimer ABG pH ABG pO2 ABG HCO3 ABG O2 Saturation ABG Base Excess ABG Hemoglobin Oxyhemoglobin Sodium Potassium Chloride Carbon Dioxide 20 L BUN 33 H Creatinine Glucose 119 H POC Glucose Lactic Acid Calcium 8.3 L Phosphorus Magnesium AST ALT Alkaline Phosphatase Lactate Dehydrogenase Troponin T 0.035 H C-Reactive Protein NT-Pro-B Natriuret Pep Total Protein Albumin LDL Cholesterol Direct 34 L Vitamin B12 Crossmatch 11/03/21 11/03/21 11/03/21 22:32 22:32 23:57 WBC RBC Hgb Hct MCV MCH MCHC RDW Plt Count Seg Neuts % (Manual) Lymphocytes % (Manual) Seg Neutrophils # Man Lymphocytes # (Manual) Monocytes # (Manual) PT INR D-Dimer ABG pH ABG pO2 ABG HCO3 ABG O2 Saturation ABG Base Excess ABG Hemoglobin Oxyhemoglobin Sodium Potassium Chloride Carbon Dioxide BUN Creatinine Glucose POC Glucose Lactic Acid 3.70 H* Calcium Phosphorus Magnesium AST ALT Alkaline Phosphatase 139 H Lactate Dehydrogenase Troponin T C-Reactive Protein NT-Pro-B Natriuret Pep 7895 H Total Protein Albumin 3.5 L LDL Cholesterol Direct Vitamin B12 Crossmatch See Detail 11/04/21 11/04/21 11/05/21 00:59 13:58 00:51 WBC 27.9 H RBC 3.28 L Hgb 7.3 L Hct 25.5 L MCV 78 L MCH 22 L MCHC 29 L RDW 19.1 H Plt Count Seg Neuts % (Manual) 96.0 H Lymphocytes % (Manual) 2.0 L Seg Neutrophils # Man 26.8 H Lymphocytes # (Manual) 0.6 L Monocytes # (Manual) PT INR D-Dimer ABG pH ABG pO2 ABG HCO3 ABG O2 Saturation ABG Base Excess ABG Hemoglobin Oxyhemoglobin Sodium Potassium Chloride Carbon Dioxide BUN Creatinine Glucose POC Glucose Lactic Acid Calcium Phosphorus Magnesium AST ALT Alkaline Phosphatase Lactate Dehydrogenase Troponin T 0.051 H D 0.032 H D C-Reactive Protein NT-Pro-B Natriuret Pep Total Protein Albumin LDL Cholesterol Direct Vitamin B12 Crossmatch 11/05/21 11/05/21 11/05/21 06:11 06:11 06:11 WBC 31.8 H RBC 3.57 L Hgb 8.0 L Hct 27.7 L MCV 78 L MCH 22 L MCHC 29 L RDW 19.2 H Plt Count Seg Neuts % (Manual) 91.0 H Lymphocytes % (Manual) 4.5 L Seg Neutrophils # Man 28.9 H Lymphocytes # (Manual) Monocytes # (Manual) 1.1 H PT INR D-Dimer 1494.53 H ABG pH ABG pO2 ABG HCO3 ABG O2 Saturation ABG Base Excess ABG Hemoglobin Oxyhemoglobin Sodium Potassium Chloride Carbon Dioxide 19 L BUN 42 H Creatinine Glucose 115 H POC Glucose Lactic Acid Calcium Phosphorus Magnesium AST 43 H ALT Alkaline Phosphatase Lactate Dehydrogenase 187 H Troponin T C-Reactive Protein 22.20 H NT-Pro-B Natriuret Pep Total Protein 6.0 L Albumin 3.2 L LDL Cholesterol Direct Vitamin B12 Crossmatch 11/05/21 11/05/21 11/06/21 06:11 12:15 00:30 WBC RBC Hgb Hct MCV MCH MCHC RDW Plt Count Seg Neuts % (Manual) Lymphocytes % (Manual) Seg Neutrophils # Man Lymphocytes # (Manual) Monocytes # (Manual) PT INR D-Dimer ABG pH ABG pO2 ABG HCO3 ABG O2 Saturation ABG Base Excess ABG Hemoglobin Oxyhemoglobin Sodium Potassium Chloride Carbon Dioxide BUN Creatinine Glucose POC Glucose 113 H 69 L Lactic Acid Calcium Phosphorus Magnesium AST ALT Alkaline Phosphatase Lactate Dehydrogenase Troponin T 0.033 H C-Reactive Protein NT-Pro-B Natriuret Pep Total Protein Albumin LDL Cholesterol Direct Vitamin B12 Crossmatch 11/06/21 11/06/21 11/06/21 05:50 15:50 15:50 WBC 25.5 H RBC 3.62 L Hgb 8.0 L Hct 27.5 L MCV 76 L MCH 22 L MCHC 29 L RDW 19.6 H Plt Count Seg Neuts % (Manual) 92.0 H Lymphocytes % (Manual) 5.0 L Seg Neutrophils # Man 23.5 H Lymphocytes # (Manual) Monocytes # (Manual) PT INR D-Dimer ABG pH 7.305 L ABG pO2 ABG HCO3 15.8 L ABG O2 Saturation ABG Base Excess -9.6 L ABG Hemoglobin 8.6 L Oxyhemoglobin 94.6 L Sodium Potassium Chloride 113.9 H Carbon Dioxide 17 L BUN 56 H Creatinine Glucose 114 H POC Glucose Lactic Acid Calcium 7.9 L Phosphorus Magnesium AST 1410 H ALT 934 H Alkaline Phosphatase 142 H Lactate Dehydrogenase Troponin T C-Reactive Protein NT-Pro-B Natriuret Pep Total Protein 5.0 L Albumin 2.6 L LDL Cholesterol Direct Vitamin B12 Crossmatch 11/07/21 11/07/21 11/07/21 03:30 04:50 08:07 WBC RBC Hgb Hct MCV MCH MCHC RDW Plt Count Seg Neuts % (Manual) Lymphocytes % (Manual) Seg Neutrophils # Man Lymphocytes # (Manual) Monocytes # (Manual) PT INR D-Dimer ABG pH ABG pO2 296.9 H ABG HCO3 18.1 L ABG O2 Saturation 99.5 H ABG Base Excess -5.9 L ABG Hemoglobin 7.6 L Oxyhemoglobin Sodium Potassium Chloride Carbon Dioxide BUN Creatinine Glucose POC Glucose 106 H 108 H Lactic Acid Calcium Phosphorus Magnesium AST ALT Alkaline Phosphatase Lactate Dehydrogenase Troponin T C-Reactive Protein NT-Pro-B Natriuret Pep Total Protein Albumin LDL Cholesterol Direct Vitamin B12 Crossmatch 11/08/21 11/08/21 11/08/21 03:10 18:05 23:43 WBC RBC Hgb Hct MCV MCH MCHC RDW Plt Count Seg Neuts % (Manual) Lymphocytes % (Manual) Seg Neutrophils # Man Lymphocytes # (Manual) Monocytes # (Manual) PT INR D-Dimer ABG pH ABG pO2 127.4 H ABG HCO3 ABG O2 Saturation ABG Base Excess -3.4 L ABG Hemoglobin 7.4 L Oxyhemoglobin Sodium Potassium Chloride Carbon Dioxide BUN Creatinine Glucose POC Glucose 113 H 141 H Lactic Acid Calcium Phosphorus Magnesium AST ALT Alkaline Phosphatase Lactate Dehydrogenase Troponin T C-Reactive Protein NT-Pro-B Natriuret Pep Total Protein Albumin LDL Cholesterol Direct Vitamin B12 Crossmatch 11/08/21 11/08/21 11/09/21 Unknown Unknown 02:00 WBC 14.5 H RBC 3.35 L Hgb 7.5 L 8.1 L Hct 25.4 L 27.6 L MCV 76 L 76 L MCH 23 L 22 L MCHC RDW 19.9 H 19.9 H Plt Count Seg Neuts % (Manual) Lymphocytes % (Manual) Seg Neutrophils # Man Lymphocytes # (Manual) Monocytes # (Manual) PT INR D-Dimer ABG pH ABG pO2 ABG HCO3 ABG O2 Saturation ABG Base Excess ABG Hemoglobin Oxyhemoglobin Sodium 154 H D Potassium 3.3 L Chloride 120.7 H Carbon Dioxide 20 L BUN 38 H Creatinine Glucose POC Glucose Lactic Acid Calcium 8.3 L Phosphorus Magnesium AST ALT Alkaline Phosphatase Lactate Dehydrogenase Troponin T C-Reactive Protein NT-Pro-B Natriuret Pep Total Protein Albumin LDL Cholesterol Direct Vitamin B12 Crossmatch 11/09/21 11/09/21 11/09/21 02:00 02:31 05:12 WBC RBC Hgb Hct MCV MCH MCHC RDW Plt Count Seg Neuts % (Manual) Lymphocytes % (Manual) Seg Neutrophils # Man Lymphocytes # (Manual) Monocytes # (Manual) PT INR D-Dimer ABG pH 7.479 H ABG pO2 121.3 H ABG HCO3 ABG O2 Saturation ABG Base Excess ABG Hemoglobin 7.3 L Oxyhemoglobin Sodium Potassium Chloride 112.5 H Carbon Dioxide BUN 33 H Creatinine Glucose 161 H POC Glucose 135 H Lactic Acid Calcium Phosphorus Magnesium AST 251 H ALT 481 H Alkaline Phosphatase Lactate Dehydrogenase Troponin T C-Reactive Protein NT-Pro-B Natriuret Pep Total Protein 5.0 L Albumin 2.8 L LDL Cholesterol Direct Vitamin B12 Crossmatch 11/09/21 11/09/21 11/09/21 11:33 16:32 23:28 WBC RBC Hgb Hct MCV MCH MCHC RDW Plt Count Seg Neuts % (Manual) Lymphocytes % (Manual) Seg Neutrophils # Man Lymphocytes # (Manual) Monocytes # (Manual) PT INR D-Dimer ABG pH ABG pO2 ABG HCO3 ABG O2 Saturation ABG Base Excess ABG Hemoglobin Oxyhemoglobin Sodium Potassium Chloride Carbon Dioxide BUN Creatinine Glucose POC Glucose 132 H 133 H 143 H Lactic Acid Calcium Phosphorus Magnesium AST ALT Alkaline Phosphatase Lactate Dehydrogenase Troponin T C-Reactive Protein NT-Pro-B Natriuret Pep Total Protein Albumin LDL Cholesterol Direct Vitamin B12 Crossmatch 11/10/21 11/10/21 11/10/21 04:00 04:00 05:35 WBC 16.0 H RBC 3.61 L Hgb 8.0 L Hct 27.1 L MCV 75 L MCH 22 L MCHC RDW 20.4 H Plt Count Seg Neuts % (Manual) Lymphocytes % (Manual) Seg Neutrophils # Man Lymphocytes # (Manual) Monocytes # (Manual) PT INR D-Dimer ABG pH ABG pO2 ABG HCO3 ABG O2 Saturation ABG Base Excess ABG Hemoglobin Oxyhemoglobin Sodium 149 H Potassium Chloride 114.1 H Carbon Dioxide BUN 31 H Creatinine Glucose 148 H POC Glucose 132 H Lactic Acid Calcium 8.2 L Phosphorus Magnesium AST ALT Alkaline Phosphatase Lactate Dehydrogenase Troponin T C-Reactive Protein NT-Pro-B Natriuret Pep Total Protein Albumin LDL Cholesterol Direct Vitamin B12 Crossmatch 11/10/21 11/10/21 11/10/21 11:31 14:08 15:35 WBC RBC Hgb Hct MCV MCH MCHC RDW Plt Count Seg Neuts % (Manual) Lymphocytes % (Manual) Seg Neutrophils # Man Lymphocytes # (Manual) Monocytes # (Manual) PT INR D-Dimer ABG pH ABG pO2 126.6 H ABG HCO3 ABG O2 Saturation ABG Base Excess ABG Hemoglobin 7.4 L Oxyhemoglobin Sodium Potassium Chloride Carbon Dioxide BUN Creatinine Glucose POC Glucose 147 H Lactic Acid Calcium Phosphorus Magnesium AST ALT Alkaline Phosphatase Lactate Dehydrogenase Troponin T C-Reactive Protein NT-Pro-B Natriuret Pep Total Protein Albumin LDL Cholesterol Direct Vitamin B12 1823 H Crossmatch 11/10/21 11/11/21 11/11/21 17:53 00:55 04:28 WBC RBC Hgb Hct MCV MCH MCHC RDW Plt Count Seg Neuts % (Manual) Lymphocytes % (Manual) Seg Neutrophils # Man Lymphocytes # (Manual) Monocytes # (Manual) PT INR D-Dimer ABG pH ABG pO2 ABG HCO3 ABG O2 Saturation ABG Base Excess ABG Hemoglobin Oxyhemoglobin Sodium 149 H Potassium Chloride 112.2 H Carbon Dioxide BUN 34 H Creatinine Glucose 148 H POC Glucose 140 H 145 H Lactic Acid Calcium 7.9 L Phosphorus Magnesium AST 53 H ALT 203 H Alkaline Phosphatase Lactate Dehydrogenase Troponin T C-Reactive Protein NT-Pro-B Natriuret Pep Total Protein 4.9 L Albumin 2.6 L LDL Cholesterol Direct Vitamin B12 Crossmatch 11/11/21 11/11/21 11/11/21 04:28 04:28 05:28 WBC 20.9 H RBC 3.47 L Hgb 7.5 L Hct 26.0 L MCV 75 L MCH 22 L MCHC 29 L RDW 21.6 H Plt Count 132 L Seg Neuts % (Manual) Lymphocytes % (Manual) Seg Neutrophils # Man Lymphocytes # (Manual) Monocytes # (Manual) PT INR D-Dimer 2655.00 H ABG pH ABG pO2 ABG HCO3 ABG O2 Saturation ABG Base Excess ABG Hemoglobin Oxyhemoglobin Sodium Potassium Chloride Carbon Dioxide BUN Creatinine Glucose POC Glucose 154 H Lactic Acid Calcium Phosphorus Magnesium AST ALT Alkaline Phosphatase Lactate Dehydrogenase Troponin T C-Reactive Protein NT-Pro-B Natriuret Pep Total Protein Albumin LDL Cholesterol Direct Vitamin B12 Crossmatch 11/11/21 11/11/21 11/12/21 12:38 18:13 00:14 WBC RBC Hgb Hct MCV MCH MCHC RDW Plt Count Seg Neuts % (Manual) Lymphocytes % (Manual) Seg Neutrophils # Man Lymphocytes # (Manual) Monocytes # (Manual) PT INR D-Dimer ABG pH ABG pO2 ABG HCO3 ABG O2 Saturation ABG Base Excess ABG Hemoglobin Oxyhemoglobin Sodium Potassium Chloride Carbon Dioxide BUN Creatinine Glucose POC Glucose 137 H 108 H 137 H Lactic Acid Calcium Phosphorus Magnesium AST ALT Alkaline Phosphatase Lactate Dehydrogenase Troponin T C-Reactive Protein NT-Pro-B Natriuret Pep Total Protein Albumin LDL Cholesterol Direct Vitamin B12 Crossmatch 11/12/21 11/12/21 11/12/21 05:40 06:24 11:12 WBC RBC Hgb Hct MCV MCH MCHC RDW Plt Count Seg Neuts % (Manual) Lymphocytes % (Manual) Seg Neutrophils # Man Lymphocytes # (Manual) Monocytes # (Manual) PT INR D-Dimer ABG pH 7.586 H ABG pO2 150.6 H ABG HCO3 27.2 H ABG O2 Saturation 99.1 H ABG Base Excess 5.2 H ABG Hemoglobin 7.5 L Oxyhemoglobin Sodium Potassium Chloride Carbon Dioxide BUN Creatinine Glucose POC Glucose 132 H 140 H Lactic Acid Calcium Phosphorus Magnesium AST ALT Alkaline Phosphatase Lactate Dehydrogenase Troponin T C-Reactive Protein NT-Pro-B Natriuret Pep Total Protein Albumin LDL Cholesterol Direct Vitamin B12 Crossmatch 11/12/21 11/12/21 11/12/21 14:50 14:50 17:13 WBC 19.8 H RBC 3.27 L Hgb 7.1 L Hct 24.5 L MCV 75 L MCH 22 L MCHC 29 L RDW 22.3 H Plt Count Seg Neuts % (Manual) Lymphocytes % (Manual) Seg Neutrophils # Man Lymphocytes # (Manual) Monocytes # (Manual) PT INR D-Dimer ABG pH ABG pO2 ABG HCO3 ABG O2 Saturation ABG Base Excess ABG Hemoglobin Oxyhemoglobin Sodium 150 H Potassium 3.3 L Chloride 112.0 H Carbon Dioxide BUN 40 H Creatinine Glucose 151 H POC Glucose 121 H Lactic Acid Calcium 7.4 L Phosphorus 1.70 L Magnesium 1.40 L AST ALT Alkaline Phosphatase Lactate Dehydrogenase Troponin T C-Reactive Protein NT-Pro-B Natriuret Pep Total Protein Albumin LDL Cholesterol Direct Vitamin B12 Crossmatch 11/12/21 11/13/21 11/13/21 23:19 05:34 06:30 WBC RBC Hgb Hct MCV MCH MCHC RDW Plt Count Seg Neuts % (Manual) Lymphocytes % (Manual) Seg Neutrophils # Man Lymphocytes # (Manual) Monocytes # (Manual) PT INR D-Dimer ABG pH ABG pO2 ABG HCO3 ABG O2 Saturation ABG Base Excess ABG Hemoglobin Oxyhemoglobin Sodium 149 H Potassium Chloride 60.0 L Carbon Dioxide BUN 40 H Creatinine Glucose 146 H POC Glucose 113 H 132 H Lactic Acid Calcium 7.3 L Phosphorus Magnesium 2.40 H AST ALT 72 H Alkaline Phosphatase Lactate Dehydrogenase Troponin T C-Reactive Protein NT-Pro-B Natriuret Pep Total Protein 5.2 L Albumin 2.2 L LDL Cholesterol Direct Vitamin B12 Crossmatch 11/13/21 11/13/21 11/13/21 06:30 08:30 11:19 WBC 21.2 H RBC 3.12 L Hgb 6.8 L Hct 23.2 L MCV 74 L MCH 22 L MCHC 29 L RDW 22.2 H Plt Count 135 L Seg Neuts % (Manual) Lymphocytes % (Manual) Seg Neutrophils # Man Lymphocytes # (Manual) Monocytes # (Manual) PT INR D-Dimer ABG pH ABG pO2 ABG HCO3 ABG O2 Saturation ABG Base Excess ABG Hemoglobin Oxyhemoglobin Sodium Potassium Chloride Carbon Dioxide BUN Creatinine Glucose POC Glucose 136 H Lactic Acid Calcium Phosphorus Magnesium AST ALT Alkaline Phosphatase Lactate Dehydrogenase Troponin T C-Reactive Protein NT-Pro-B Natriuret Pep Total Protein Albumin LDL Cholesterol Direct Vitamin B12 Crossmatch See Detail 11/13/21 11/14/21 11/14/21 18:21 00:01 04:46 WBC 20.0 H RBC 3.41 L Hgb 7.9 L Hct 26.8 L MCV MCH 23 L MCHC 29 L RDW 24.0 H Plt Count Seg Neuts % (Manual) Lymphocytes % (Manual) Seg Neutrophils # Man Lymphocytes # (Manual) Monocytes # (Manual) PT INR D-Dimer ABG pH ABG pO2 ABG HCO3 ABG O2 Saturation ABG Base Excess ABG Hemoglobin Oxyhemoglobin Sodium Potassium Chloride Carbon Dioxide BUN Creatinine Glucose POC Glucose 149 H 141 H Lactic Acid Calcium Phosphorus Magnesium AST ALT Alkaline Phosphatase Lactate Dehydrogenase Troponin T C-Reactive Protein NT-Pro-B Natriuret Pep Total Protein Albumin LDL Cholesterol Direct Vitamin B12 Crossmatch 11/14/21 11/14/21 11/14/21 04:46 05:10 11:10 WBC RBC Hgb Hct MCV MCH MCHC RDW Plt Count Seg Neuts % (Manual) Lymphocytes % (Manual) Seg Neutrophils # Man Lymphocytes # (Manual) Monocytes # (Manual) PT INR D-Dimer ABG pH ABG pO2 ABG HCO3 ABG O2 Saturation ABG Base Excess ABG Hemoglobin Oxyhemoglobin Sodium 148 H Potassium Chloride 113.1 H Carbon Dioxide BUN 43 H Creatinine Glucose 140 H POC Glucose 132 H 133 H Lactic Acid Calcium 7.5 L Phosphorus Magnesium AST ALT Alkaline Phosphatase Lactate Dehydrogenase Troponin T C-Reactive Protein NT-Pro-B Natriuret Pep Total Protein Albumin LDL Cholesterol Direct Vitamin B12 Crossmatch 11/14/21 11/14/21 11/14/21 16:14 17:48 23:23 WBC RBC Hgb Hct MCV MCH MCHC RDW Plt Count Seg Neuts % (Manual) Lymphocytes % (Manual) Seg Neutrophils # Man Lymphocytes # (Manual) Monocytes # (Manual) PT INR D-Dimer ABG pH ABG pO2 ABG HCO3 28.0 H ABG O2 Saturation ABG Base Excess 3.1 H ABG Hemoglobin 5.8 L Oxyhemoglobin 94.8 L Sodium Potassium Chloride Carbon Dioxide BUN Creatinine Glucose POC Glucose 130 H 136 H Lactic Acid Calcium Phosphorus Magnesium AST ALT Alkaline Phosphatase Lactate Dehydrogenase Troponin T C-Reactive Protein NT-Pro-B Natriuret Pep Total Protein Albumin LDL Cholesterol Direct Vitamin B12 Crossmatch 11/15/21 11/15/21 11/15/21 05:20 05:50 05:50 WBC 19.9 H RBC 3.50 L Hgb 8.2 L Hct 27.9 L MCV MCH 23 L MCHC 29 L RDW 24.9 H Plt Count Seg Neuts % (Manual) Lymphocytes % (Manual) Seg Neutrophils # Man Lymphocytes # (Manual) Monocytes # (Manual) PT INR D-Dimer ABG pH ABG pO2 ABG HCO3 ABG O2 Saturation ABG Base Excess ABG Hemoglobin Oxyhemoglobin Sodium 149 H Potassium Chloride 112.0 H Carbon Dioxide BUN 48 H Creatinine Glucose 152 H POC Glucose 137 H Lactic Acid Calcium 7.9 L Phosphorus Magnesium AST ALT Alkaline Phosphatase Lactate Dehydrogenase Troponin T C-Reactive Protein NT-Pro-B Natriuret Pep Total Protein Albumin LDL Cholesterol Direct Vitamin B12 Crossmatch 11/15/21 11/15/21 11/15/21 12:12 17:07 23:24 WBC RBC Hgb Hct MCV MCH MCHC RDW Plt Count Seg Neuts % (Manual) Lymphocytes % (Manual) Seg Neutrophils # Man Lymphocytes # (Manual) Monocytes # (Manual) PT INR D-Dimer ABG pH ABG pO2 ABG HCO3 ABG O2 Saturation ABG Base Excess ABG Hemoglobin Oxyhemoglobin Sodium Potassium Chloride Carbon Dioxide BUN Creatinine Glucose POC Glucose 114 H 135 H 123 H Lactic Acid Calcium Phosphorus Magnesium AST ALT Alkaline Phosphatase Lactate Dehydrogenase Troponin T C-Reactive Protein NT-Pro-B Natriuret Pep Total Protein Albumin LDL Cholesterol Direct Vitamin B12 Crossmatch 11/16/21 11/16/21 11/16/21 05:21 10:00 10:00 WBC 21.7 H RBC 2.57 L Hgb 6.0 L Hct 20.2 L D MCV MCH 24 L MCHC RDW 26.3 H Plt Count Seg Neuts % (Manual) Lymphocytes % (Manual) Seg Neutrophils # Man Lymphocytes # (Manual) Monocytes # (Manual) PT INR D-Dimer ABG pH ABG pO2 ABG HCO3 ABG O2 Saturation ABG Base Excess ABG Hemoglobin Oxyhemoglobin Sodium 153 H Potassium Chloride 114.9 H Carbon Dioxide BUN 74 H Creatinine Glucose 155 H POC Glucose 127 H Lactic Acid Calcium 8.1 L Phosphorus Magnesium AST ALT Alkaline Phosphatase Lactate Dehydrogenase Troponin T C-Reactive Protein NT-Pro-B Natriuret Pep Total Protein Albumin LDL Cholesterol Direct Vitamin B12 Crossmatch 11/16/21 11/16/21 11/16/21 11:34 14:00 15:25 WBC 17.2 H RBC 2.08 L Hgb 4.7 L* Hct 16.2 L* MCV 78 L MCH 23 L MCHC 29 L RDW 26.0 H Plt Count Seg Neuts % (Manual) 87.0 H Lymphocytes % (Manual) 8.0 L Seg Neutrophils # Man 15.0 H Lymphocytes # (Manual) Monocytes # (Manual) 0.9 H PT INR D-Dimer ABG pH ABG pO2 ABG HCO3 ABG O2 Saturation ABG Base Excess ABG Hemoglobin Oxyhemoglobin Sodium Potassium Chloride Carbon Dioxide BUN Creatinine Glucose POC Glucose 131 H Lactic Acid Calcium Phosphorus Magnesium AST ALT Alkaline Phosphatase Lactate Dehydrogenase Troponin T C-Reactive Protein NT-Pro-B Natriuret Pep Total Protein Albumin LDL Cholesterol Direct Vitamin B12 Crossmatch See Detail 11/16/21 11/16/21 11/16/21 15:25 17:21 22:43 WBC RBC Hgb 8.6 L D Hct 27.7 L D MCV MCH MCHC RDW Plt Count Seg Neuts % (Manual) Lymphocytes % (Manual) Seg Neutrophils # Man Lymphocytes # (Manual) Monocytes # (Manual) PT INR D-Dimer ABG pH ABG pO2 ABG HCO3 ABG O2 Saturation ABG Base Excess ABG Hemoglobin Oxyhemoglobin Sodium 148 H Potassium Chloride 113.2 H Carbon Dioxide BUN 84 H Creatinine Glucose 164 H POC Glucose 124 H Lactic Acid Calcium 7.6 L Phosphorus Magnesium AST ALT Alkaline Phosphatase Lactate Dehydrogenase Troponin T C-Reactive Protein NT-Pro-B Natriuret Pep Total Protein Albumin LDL Cholesterol Direct Vitamin B12 Crossmatch 11/16/21 11/17/21 11/17/21 23:07 05:33 05:56 WBC 25.1 H RBC 3.47 L Hgb 8.7 L Hct 28.5 L MCV MCH 25 L MCHC RDW 22.3 H Plt Count Seg Neuts % (Manual) Lymphocytes % (Manual) Seg Neutrophils # Man Lymphocytes # (Manual) Monocytes # (Manual) PT INR D-Dimer ABG pH ABG pO2 ABG HCO3 ABG O2 Saturation ABG Base Excess ABG Hemoglobin Oxyhemoglobin Sodium Potassium Chloride Carbon Dioxide BUN Creatinine Glucose POC Glucose 128 H 133 H Lactic Acid Calcium Phosphorus Magnesium AST ALT Alkaline Phosphatase Lactate Dehydrogenase Troponin T C-Reactive Protein NT-Pro-B Natriuret Pep Total Protein Albumin LDL Cholesterol Direct Vitamin B12 Crossmatch 11/17/21 11/17/21 11/17/21 05:56 11:00 11:55 WBC RBC Hgb 8.3 L Hct 26.9 L MCV MCH MCHC RDW Plt Count Seg Neuts % (Manual) Lymphocytes % (Manual) Seg Neutrophils # Man Lymphocytes # (Manual) Monocytes # (Manual) PT INR D-Dimer ABG pH ABG pO2 ABG HCO3 ABG O2 Saturation ABG Base Excess ABG Hemoglobin Oxyhemoglobin Sodium 151 H Potassium Chloride 113.6 H Carbon Dioxide BUN 85 H Creatinine Glucose 132 H POC Glucose 121 H Lactic Acid Calcium 7.8 L Phosphorus Magnesium AST ALT Alkaline Phosphatase Lactate Dehydrogenase Troponin T C-Reactive Protein NT-Pro-B Natriuret Pep Total Protein 5.1 L Albumin 2.2 L LDL Cholesterol Direct Vitamin B12 Crossmatch 11/17/21 11/17/21 11/18/21 18:04 18:55 00:26 WBC RBC Hgb 7.5 L 7.1 L Hct 24.8 L 23.6 L MCV MCH MCHC RDW Plt Count Seg Neuts % (Manual) Lymphocytes % (Manual) Seg Neutrophils # Man Lymphocytes # (Manual) Monocytes # (Manual) PT INR D-Dimer ABG pH ABG pO2 ABG HCO3 ABG O2 Saturation ABG Base Excess ABG Hemoglobin Oxyhemoglobin Sodium Potassium Chloride Carbon Dioxide BUN Creatinine Glucose POC Glucose 144 H Lactic Acid Calcium Phosphorus Magnesium AST ALT Alkaline Phosphatase Lactate Dehydrogenase Troponin T C-Reactive Protein NT-Pro-B Natriuret Pep Total Protein Albumin LDL Cholesterol Direct Vitamin B12 Crossmatch 11/18/21 11/18/21 11/18/21 00:43 05:10 05:10 WBC 12.5 H RBC 2.39 L Hgb 6.1 L Hct 20.2 L MCV MCH 25 L MCHC RDW 23.2 H Plt Count Seg Neuts % (Manual) Lymphocytes % (Manual) Seg Neutrophils # Man Lymphocytes # (Manual) Monocytes # (Manual) PT INR D-Dimer ABG pH ABG pO2 ABG HCO3 ABG O2 Saturation ABG Base Excess ABG Hemoglobin Oxyhemoglobin Sodium 131 L D Potassium 2.9 L* D Chloride 97.8 L Carbon Dioxide BUN 58 H Creatinine Glucose 665 H* POC Glucose 139 H Lactic Acid Calcium 7.0 L Phosphorus 2.20 L D Magnesium 1.50 L AST ALT Alkaline Phosphatase Lactate Dehydrogenase Troponin T C-Reactive Protein NT-Pro-B Natriuret Pep Total Protein Albumin LDL Cholesterol Direct Vitamin B12 Crossmatch 11/18/21 11/18/21 11/18/21 05:23 07:10 10:45 WBC RBC Hgb Hct MCV MCH MCHC RDW Plt Count Seg Neuts % (Manual) Lymphocytes % (Manual) Seg Neutrophils # Man Lymphocytes # (Manual) Monocytes # (Manual) PT INR D-Dimer ABG pH ABG pO2 ABG HCO3 ABG O2 Saturation ABG Base Excess ABG Hemoglobin Oxyhemoglobin Sodium 148 H D Potassium 3.1 L Chloride 111.9 H Carbon Dioxide BUN 63 H Creatinine Glucose 141 H POC Glucose 124 H Lactic Acid Calcium 8.1 L D Phosphorus Magnesium AST ALT Alkaline Phosphatase Lactate Dehydrogenase Troponin T C-Reactive Protein NT-Pro-B Natriuret Pep Total Protein Albumin LDL Cholesterol Direct Vitamin B12 Crossmatch See Detail 11/18/21 11/19/21 11/19/21 11:57 00:19 04:55 WBC RBC 3.35 L Hgb 9.0 L 8.9 L Hct 28.3 L D 28.1 L MCV MCH 27 L MCHC RDW 20.3 H Plt Count Seg Neuts % (Manual) Lymphocytes % (Manual) Seg Neutrophils # Man Lymphocytes # (Manual) Monocytes # (Manual) PT INR D-Dimer ABG pH ABG pO2 ABG HCO3 ABG O2 Saturation ABG Base Excess ABG Hemoglobin Oxyhemoglobin Sodium Potassium Chloride Carbon Dioxide BUN Creatinine Glucose POC Glucose 119 H Lactic Acid Calcium Phosphorus Magnesium AST ALT Alkaline Phosphatase Lactate Dehydrogenase Troponin T C-Reactive Protein NT-Pro-B Natriuret Pep Total Protein Albumin LDL Cholesterol Direct Vitamin B12 Crossmatch 11/19/21 11/19/21 11/20/21 04:55 05:42 00:55 WBC RBC Hgb 9.0 L Hct 28.6 L MCV MCH MCHC RDW Plt Count Seg Neuts % (Manual) Lymphocytes % (Manual) Seg Neutrophils # Man Lymphocytes # (Manual) Monocytes # (Manual) PT INR D-Dimer ABG pH ABG pO2 ABG HCO3 ABG O2 Saturation ABG Base Excess ABG Hemoglobin Oxyhemoglobin Sodium Potassium 3.5 L Chloride 108.6 H Carbon Dioxide BUN 47 H Creatinine Glucose 207 H POC Glucose 63 L Lactic Acid Calcium 7.1 L Phosphorus Magnesium AST ALT Alkaline Phosphatase Lactate Dehydrogenase Troponin T C-Reactive Protein NT-Pro-B Natriuret Pep Total Protein Albumin LDL Cholesterol Direct Vitamin B12 Crossmatch 11/20/21 11/20/21 11/20/21 05:40 05:40 Unknown WBC RBC 3.40 L Hgb 9.1 L Hct 28.8 L MCV MCH 27 L MCHC RDW 20.7 H Plt Count Seg Neuts % (Manual) Lymphocytes % (Manual) Seg Neutrophils # Man Lymphocytes # (Manual) Monocytes # (Manual) PT INR D-Dimer ABG pH ABG pO2 ABG HCO3 ABG O2 Saturation ABG Base Excess -2.7 L ABG Hemoglobin 9.5 L Oxyhemoglobin 94.3 L Sodium Potassium 3.5 L Chloride 108.9 H Carbon Dioxide BUN 37 H Creatinine Glucose 117 H POC Glucose Lactic Acid Calcium 7.5 L Phosphorus Magnesium AST ALT Alkaline Phosphatase Lactate Dehydrogenase Troponin T C-Reactive Protein NT-Pro-B Natriuret Pep Total Protein Albumin LDL Cholesterol Direct Vitamin B12 Crossmatch 11/21/21 11/21/21 11/21/21 04:30 04:30 16:00 WBC RBC 3.25 L Hgb 8.6 L Hct 28.1 L MCV MCH 26 L MCHC RDW 20.7 H Plt Count Seg Neuts % (Manual) Lymphocytes % (Manual) Seg Neutrophils # Man Lymphocytes # (Manual) Monocytes # (Manual) PT INR D-Dimer ABG pH ABG pO2 114.2 H ABG HCO3 ABG O2 Saturation ABG Base Excess ABG Hemoglobin 9.1 L Oxyhemoglobin Sodium 134 L Potassium Chloride Carbon Dioxide 20 L BUN 34 H Creatinine Glucose POC Glucose Lactic Acid Calcium 7.1 L Phosphorus Magnesium AST ALT Alkaline Phosphatase Lactate Dehydrogenase Troponin T C-Reactive Protein NT-Pro-B Natriuret Pep Total Protein Albumin LDL Cholesterol Direct Vitamin B12 Crossmatch 11/22/21 11/22/21 11/22/21 07:07 07:07 23:54 WBC RBC 3.30 L Hgb 9.0 L Hct 28.5 L MCV MCH 27 L MCHC RDW 21.0 H Plt Count Seg Neuts % (Manual) Lymphocytes % (Manual) Seg Neutrophils # Man Lymphocytes # (Manual) Monocytes # (Manual) PT INR D-Dimer ABG pH ABG pO2 ABG HCO3 ABG O2 Saturation ABG Base Excess ABG Hemoglobin Oxyhemoglobin Sodium Potassium Chloride Carbon Dioxide BUN 32 H Creatinine Glucose 106 H POC Glucose 110 H Lactic Acid Calcium 7.5 L Phosphorus Magnesium AST ALT Alkaline Phosphatase Lactate Dehydrogenase Troponin T C-Reactive Protein NT-Pro-B Natriuret Pep Total Protein Albumin LDL Cholesterol Direct Vitamin B12 Crossmatch 02/04/0811/23/21 11/23/21 04:38 04:38 06:01 WBC RBC 3.23 L Hgb 8.8 L Hct 28.0 L MCV MCH 27 L MCHC RDW 21.3 H Plt Count Seg Neuts % (Manual) Lymphocytes % (Manual) Seg Neutrophils # Man Lymphocytes # (Manual) Monocytes # (Manual) PT INR D-Dimer ABG pH ABG pO2 ABG HCO3 ABG O2 Saturation ABG Base Excess ABG Hemoglobin Oxyhemoglobin Sodium 136 L Potassium Chloride Carbon Dioxide 20 L BUN 32 H Creatinine Glucose 109 H POC Glucose 115 H Lactic Acid Calcium 7.7 L Phosphorus Magnesium AST ALT Alkaline Phosphatase Lactate Dehydrogenase Troponin T C-Reactive Protein NT-Pro-B Natriuret Pep Total Protein Albumin LDL Cholesterol Direct Vitamin B12 Crossmatch 11/23/21 11/24/21 11/24/21 11:40 00:03 04:13 WBC RBC 3.18 L Hgb 8.5 L Hct 27.5 L MCV MCH 27 L MCHC RDW 21.6 H Plt Count Seg Neuts % (Manual) Lymphocytes % (Manual) Seg Neutrophils # Man Lymphocytes # (Manual) Monocytes # (Manual) PT INR D-Dimer ABG pH ABG pO2 ABG HCO3 ABG O2 Saturation ABG Base Excess ABG Hemoglobin Oxyhemoglobin Sodium Potassium Chloride Carbon Dioxide BUN Creatinine Glucose POC Glucose 117 H 111 H Lactic Acid Calcium Phosphorus Magnesium AST ALT Alkaline Phosphatase Lactate Dehydrogenase Troponin T C-Reactive Protein NT-Pro-B Natriuret Pep Total Protein Albumin LDL Cholesterol Direct Vitamin B12 Crossmatch 11/24/21 11/24/21 11/24/21 04:13 05:30 11:10 WBC RBC Hgb Hct MCV MCH MCHC RDW Plt Count Seg Neuts % (Manual) Lymphocytes % (Manual) Seg Neutrophils # Man Lymphocytes # (Manual) Monocytes # (Manual) PT INR D-Dimer ABG pH ABG pO2 ABG HCO3 ABG O2 Saturation ABG Base Excess ABG Hemoglobin Oxyhemoglobin Sodium Potassium Chloride Carbon Dioxide BUN 31 H Creatinine Glucose 101 H POC Glucose 115 H 107 H Lactic Acid Calcium 7.7 L Phosphorus Magnesium AST ALT Alkaline Phosphatase Lactate Dehydrogenase Troponin T C-Reactive Protein NT-Pro-B Natriuret Pep Total Protein Albumin LDL Cholesterol Direct Vitamin B12 Crossmatch 11/24/21 11/24/21 11/25/21 16:34 17:57 05:12 WBC RBC 3.11 L Hgb 8.2 L Hct 26.6 L MCV MCH 26 L MCHC RDW 21.3 H Plt Count Seg Neuts % (Manual) Lymphocytes % (Manual) Seg Neutrophils # Man Lymphocytes # (Manual) Monocytes # (Manual) PT INR D-Dimer ABG pH ABG pO2 ABG HCO3 ABG O2 Saturation ABG Base Excess ABG Hemoglobin Oxyhemoglobin Sodium Potassium Chloride Carbon Dioxide BUN Creatinine Glucose POC Glucose 115 H 110 H Lactic Acid Calcium Phosphorus Magnesium AST ALT Alkaline Phosphatase Lactate Dehydrogenase Troponin T C-Reactive Protein NT-Pro-B Natriuret Pep Total Protein Albumin LDL Cholesterol Direct Vitamin B12 Crossmatch 11/25/21 11/25/21 11/26/21 05:12 11:20 05:00 WBC RBC 3.30 L Hgb 8.8 L Hct 28.2 L MCV MCH 27 L MCHC RDW 20.7 H Plt Count Seg Neuts % (Manual) Lymphocytes % (Manual) Seg Neutrophils # Man Lymphocytes # (Manual) Monocytes # (Manual) PT INR D-Dimer ABG pH ABG pO2 ABG HCO3 ABG O2 Saturation ABG Base Excess ABG Hemoglobin Oxyhemoglobin Sodium Potassium Chloride Carbon Dioxide BUN 32 H Creatinine Glucose 118 H POC Glucose 118 H Lactic Acid Calcium 8.2 L Phosphorus Magnesium AST ALT Alkaline Phosphatase Lactate Dehydrogenase Troponin T C-Reactive Protein NT-Pro-B Natriuret Pep Total Protein Albumin LDL Cholesterol Direct Vitamin B12 Crossmatch 11/26/21 11/26/21 11/26/21 05:00 05:00 05:44 WBC RBC Hgb Hct MCV MCH MCHC RDW Plt Count Seg Neuts % (Manual) Lymphocytes % (Manual) Seg Neutrophils # Man Lymphocytes # (Manual) Monocytes # (Manual) PT 16.9 H INR 1.24 H D-Dimer ABG pH ABG pO2 ABG HCO3 ABG O2 Saturation ABG Base Excess ABG Hemoglobin Oxyhemoglobin Sodium Potassium Chloride Carbon Dioxide BUN 31 H Creatinine Glucose 104 H POC Glucose 110 H Lactic Acid Calcium 7.9 L Phosphorus Magnesium AST ALT Alkaline Phosphatase Lactate Dehydrogenase Troponin T C-Reactive Protein NT-Pro-B Natriuret Pep Total Protein Albumin LDL Cholesterol Direct Vitamin B12 Crossmatch 11/26/21 11/27/21 11/27/21 23:55 07:40 07:40 WBC RBC 3.18 L Hgb 8.5 L Hct 27.0 L MCV MCH 27 L MCHC RDW 21.2 H Plt Count Seg Neuts % (Manual) Lymphocytes % (Manual) Seg Neutrophils # Man Lymphocytes # (Manual) Monocytes # (Manual) PT INR D-Dimer ABG pH ABG pO2 ABG HCO3 ABG O2 Saturation ABG Base Excess ABG Hemoglobin Oxyhemoglobin Sodium Potassium Chloride Carbon Dioxide BUN 27 H Creatinine Glucose 112 H POC Glucose 63 L Lactic Acid Calcium 7.6 L Phosphorus Magnesium AST ALT Alkaline Phosphatase Lactate Dehydrogenase Troponin T C-Reactive Protein NT-Pro-B Natriuret Pep Total Protein Albumin LDL Cholesterol Direct Vitamin B12 Crossmatch 11/27/21 11/27/21 11/27/21 12:04 13:40 13:40 WBC RBC 3.31 L Hgb 8.7 L Hct 28.0 L MCV MCH 26 L MCHC RDW 20.7 H Plt Count Seg Neuts % (Manual) Lymphocytes % (Manual) Seg Neutrophils # Man Lymphocytes # (Manual) Monocytes # (Manual) PT INR D-Dimer ABG pH ABG pO2 ABG HCO3 ABG O2 Saturation ABG Base Excess ABG Hemoglobin Oxyhemoglobin Sodium 136 L Potassium Chloride Carbon Dioxide BUN 25 H Creatinine Glucose 127 H POC Glucose 109 H Lactic Acid Calcium 7.6 L Phosphorus Magnesium 1.40 L AST ALT Alkaline Phosphatase Lactate Dehydrogenase Troponin T C-Reactive Protein NT-Pro-B Natriuret Pep Total Protein Albumin LDL Cholesterol Direct Vitamin B12 Crossmatch 11/27/21 11/27/21 11/28/21 17:44 23:33 12:20 WBC RBC Hgb Hct MCV MCH MCHC RDW Plt Count Seg Neuts % (Manual) Lymphocytes % (Manual) Seg Neutrophils # Man Lymphocytes # (Manual) Monocytes # (Manual) PT INR D-Dimer ABG pH ABG pO2 ABG HCO3 ABG O2 Saturation ABG Base Excess ABG Hemoglobin Oxyhemoglobin Sodium Potassium Chloride Carbon Dioxide BUN Creatinine Glucose POC Glucose 107 H 108 H 114 H Lactic Acid Calcium Phosphorus Magnesium AST ALT Alkaline Phosphatase Lactate Dehydrogenase Troponin T C-Reactive Protein NT-Pro-B Natriuret Pep Total Protein Albumin LDL Cholesterol Direct Vitamin B12 Crossmatch 11/29/21 11/29/21 11/29/21 00:09 03:20 03:20 WBC RBC 3.05 L Hgb 8.2 L Hct 25.8 L MCV MCH 27 L MCHC RDW 20.9 H Plt Count Seg Neuts % (Manual) Lymphocytes % (Manual) Seg Neutrophils # Man Lymphocytes # (Manual) Monocytes # (Manual) PT INR D-Dimer ABG pH ABG pO2 ABG HCO3 ABG O2 Saturation ABG Base Excess ABG Hemoglobin Oxyhemoglobin Sodium 133 L Potassium Chloride Carbon Dioxide BUN 24 H Creatinine Glucose 137 H POC Glucose 134 H Lactic Acid Calcium 7.4 L Phosphorus Magnesium AST ALT Alkaline Phosphatase Lactate Dehydrogenase Troponin T C-Reactive Protein NT-Pro-B Natriuret Pep Total Protein Albumin LDL Cholesterol Direct Vitamin B12 Crossmatch 11/29/21 11/29/21 11/29/21 05:38 11:39 17:11 WBC RBC Hgb Hct MCV MCH MCHC RDW Plt Count Seg Neuts % (Manual) Lymphocytes % (Manual) Seg Neutrophils # Man Lymphocytes # (Manual) Monocytes # (Manual) PT INR D-Dimer ABG pH ABG pO2 ABG HCO3 ABG O2 Saturation ABG Base Excess ABG Hemoglobin Oxyhemoglobin Sodium Potassium Chloride Carbon Dioxide BUN Creatinine Glucose POC Glucose 117 H 143 H 124 H Lactic Acid Calcium Phosphorus Magnesium AST ALT Alkaline Phosphatase Lactate Dehydrogenase Troponin T C-Reactive Protein NT-Pro-B Natriuret Pep Total Protein Albumin LDL Cholesterol Direct Vitamin B12 Crossmatch 11/29/21 11/30/21 11/30/21 20:15 05:40 05:40 WBC 12.6 H RBC 3.41 L Hgb 9.1 L Hct 28.9 L MCV MCH 27 L MCHC RDW 20.4 H Plt Count Seg Neuts % (Manual) Lymphocytes % (Manual) Seg Neutrophils # Man Lymphocytes # (Manual) Monocytes # (Manual) PT INR D-Dimer ABG pH ABG pO2 ABG HCO3 ABG O2 Saturation ABG Base Excess ABG Hemoglobin Oxyhemoglobin Sodium Potassium Chloride Carbon Dioxide BUN 24 H Creatinine Glucose 131 H POC Glucose Lactic Acid Calcium 7.6 L Phosphorus Magnesium AST ALT Alkaline Phosphatase Lactate Dehydrogenase Troponin T 0.045 H C-Reactive Protein NT-Pro-B Natriuret Pep Total Protein Albumin LDL Cholesterol Direct 25 L Vitamin B12 Crossmatch 11/30/21 11/30/21 12/01/21 11:29 16:51 05:00 WBC RBC 2.97 L Hgb 8.0 L Hct 25.0 L MCV MCH 27 L MCHC RDW 20.8 H Plt Count Seg Neuts % (Manual) Lymphocytes % (Manual) Seg Neutrophils # Man Lymphocytes # (Manual) Monocytes # (Manual) PT INR D-Dimer ABG pH ABG pO2 ABG HCO3 ABG O2 Saturation ABG Base Excess ABG Hemoglobin Oxyhemoglobin Sodium Potassium Chloride Carbon Dioxide BUN Creatinine Glucose POC Glucose 123 H 114 H Lactic Acid Calcium Phosphorus Magnesium AST ALT Alkaline Phosphatase Lactate Dehydrogenase Troponin T C-Reactive Protein NT-Pro-B Natriuret Pep Total Protein Albumin LDL Cholesterol Direct Vitamin B12 Crossmatch 12/01/21 12/01/21 12/01/21 05:00 05:25 11:54 WBC RBC Hgb Hct MCV MCH MCHC RDW Plt Count Seg Neuts % (Manual) Lymphocytes % (Manual) Seg Neutrophils # Man Lymphocytes # (Manual) Monocytes # (Manual) PT INR D-Dimer ABG pH ABG pO2 ABG HCO3 ABG O2 Saturation ABG Base Excess ABG Hemoglobin Oxyhemoglobin Sodium 136 L Potassium Chloride Carbon Dioxide BUN 24 H Creatinine Glucose 117 H POC Glucose 108 H 107 H Lactic Acid Calcium 7.5 L Phosphorus Magnesium 1.60 L AST ALT Alkaline Phosphatase Lactate Dehydrogenase Troponin T C-Reactive Protein NT-Pro-B Natriuret Pep Total Protein Albumin LDL Cholesterol Direct Vitamin B12 Crossmatch 12/01/21 12/02/21 12/02/21 17:40 00:07 04:20 WBC RBC 2.92 L Hgb 7.7 L Hct 24.3 L MCV MCH 26 L MCHC RDW 20.5 H Plt Count Seg Neuts % (Manual) Lymphocytes % (Manual) Seg Neutrophils # Man Lymphocytes # (Manual) Monocytes # (Manual) PT INR D-Dimer ABG pH ABG pO2 ABG HCO3 ABG O2 Saturation ABG Base Excess ABG Hemoglobin Oxyhemoglobin Sodium Potassium Chloride Carbon Dioxide BUN Creatinine Glucose POC Glucose 123 H 110 H Lactic Acid Calcium Phosphorus Magnesium AST ALT Alkaline Phosphatase Lactate Dehydrogenase Troponin T C-Reactive Protein NT-Pro-B Natriuret Pep Total Protein Albumin LDL Cholesterol Direct Vitamin B12 Crossmatch 12/02/21 12/02/21 12/02/21 04:20 11:17 18:20 WBC RBC Hgb Hct MCV MCH MCHC RDW Plt Count Seg Neuts % (Manual) Lymphocytes % (Manual) Seg Neutrophils # Man Lymphocytes # (Manual) Monocytes # (Manual) PT INR D-Dimer ABG pH ABG pO2 ABG HCO3 ABG O2 Saturation ABG Base Excess ABG Hemoglobin Oxyhemoglobin Sodium 135 L Potassium Chloride Carbon Dioxide BUN 26 H Creatinine Glucose 121 H POC Glucose 117 H 113 H Lactic Acid Calcium 7.4 L Phosphorus Magnesium AST ALT Alkaline Phosphatase Lactate Dehydrogenase Troponin T C-Reactive Protein NT-Pro-B Natriuret Pep Total Protein Albumin LDL Cholesterol Direct Vitamin B12 Crossmatch 12/03/21 12/03/21 12/03/21 00:12 04:00 04:00 WBC RBC 2.99 L Hgb 7.8 L Hct 24.6 L MCV MCH 26 L MCHC RDW 20.2 H Plt Count Seg Neuts % (Manual) Lymphocytes % (Manual) Seg Neutrophils # Man Lymphocytes # (Manual) Monocytes # (Manual) PT INR D-Dimer ABG pH ABG pO2 ABG HCO3 ABG O2 Saturation ABG Base Excess ABG Hemoglobin Oxyhemoglobin Sodium 136 L Potassium Chloride Carbon Dioxide BUN 27 H Creatinine Glucose 133 H POC Glucose 121 H Lactic Acid Calcium 7.5 L Phosphorus Magnesium AST ALT Alkaline Phosphatase Lactate Dehydrogenase Troponin T C-Reactive Protein NT-Pro-B Natriuret Pep Total Protein Albumin LDL Cholesterol Direct Vitamin B12 Crossmatch 12/03/21 12/03/21 12/03/21 06:30 11:13 16:00 WBC RBC Hgb Hct MCV MCH MCHC RDW Plt Count Seg Neuts % (Manual) Lymphocytes % (Manual) Seg Neutrophils # Man Lymphocytes # (Manual) Monocytes # (Manual) PT INR D-Dimer ABG pH ABG pO2 ABG HCO3 ABG O2 Saturation ABG Base Excess ABG Hemoglobin Oxyhemoglobin Sodium Potassium Chloride Carbon Dioxide BUN Creatinine Glucose POC Glucose 129 H 125 H 125 H Lactic Acid Calcium Phosphorus Magnesium AST ALT Alkaline Phosphatase Lactate Dehydrogenase Troponin T C-Reactive Protein NT-Pro-B Natriuret Pep Total Protein Albumin LDL Cholesterol Direct Vitamin B12 Crossmatch 12/03/21 12/04/21 12/04/21 23:32 04:00 05:36 WBC RBC Hgb Hct MCV MCH MCHC RDW Plt Count Seg Neuts % (Manual) Lymphocytes % (Manual) Seg Neutrophils # Man Lymphocytes # (Manual) Monocytes # (Manual) PT INR D-Dimer ABG pH ABG pO2 ABG HCO3 ABG O2 Saturation ABG Base Excess ABG Hemoglobin Oxyhemoglobin Sodium Potassium 3.5 L Chloride Carbon Dioxide BUN 26 H Creatinine 0.5 L Glucose 151 H POC Glucose 133 H 142 H Lactic Acid Calcium 8.3 L Phosphorus Magnesium AST ALT Alkaline Phosphatase Lactate Dehydrogenase Troponin T C-Reactive Protein NT-Pro-B Natriuret Pep Total Protein Albumin LDL Cholesterol Direct Vitamin B12 Crossmatch 12/04/21 12/04/21 12/05/21 11:24 15:58 04:36 WBC RBC Hgb Hct MCV MCH MCHC RDW Plt Count Seg Neuts % (Manual) Lymphocytes % (Manual) Seg Neutrophils # Man Lymphocytes # (Manual) Monocytes # (Manual) PT INR D-Dimer ABG pH ABG pO2 ABG HCO3 ABG O2 Saturation ABG Base Excess ABG Hemoglobin Oxyhemoglobin Sodium Potassium Chloride Carbon Dioxide BUN 21 H Creatinine 0.5 L Glucose 119 H POC Glucose 130 H 111 H Lactic Acid Calcium 8.3 L Phosphorus Magnesium AST ALT Alkaline Phosphatase Lactate Dehydrogenase Troponin T C-Reactive Protein NT-Pro-B Natriuret Pep Total Protein Albumin LDL Cholesterol Direct Vitamin B12 Crossmatch 12/05/21 12/05/21 12/05/21 05:15 10:40 11:12 WBC RBC 2.98 L Hgb 8.1 L Hct 24.6 L MCV MCH 27 L MCHC RDW 20.8 H Plt Count Seg Neuts % (Manual) Lymphocytes % (Manual) Seg Neutrophils # Man Lymphocytes # (Manual) Monocytes # (Manual) PT INR D-Dimer ABG pH ABG pO2 ABG HCO3 ABG O2 Saturation ABG Base Excess ABG Hemoglobin Oxyhemoglobin Sodium Potassium Chloride Carbon Dioxide BUN Creatinine Glucose POC Glucose 107 H 110 H Lactic Acid Calcium Phosphorus Magnesium AST ALT Alkaline Phosphatase Lactate Dehydrogenase Troponin T C-Reactive Protein NT-Pro-B Natriuret Pep Total Protein Albumin LDL Cholesterol Direct Vitamin B12 Crossmatch 12/05/21 12/06/21 12/06/21 23:39 04:25 04:25 WBC RBC 2.95 L Hgb 7.9 L Hct 24.7 L MCV MCH 27 L MCHC RDW 20.9 H Plt Count Seg Neuts % (Manual) Lymphocytes % (Manual) Seg Neutrophils # Man Lymphocytes # (Manual) Monocytes # (Manual) PT INR D-Dimer ABG pH ABG pO2 ABG HCO3 ABG O2 Saturation ABG Base Excess ABG Hemoglobin Oxyhemoglobin Sodium Potassium Chloride Carbon Dioxide BUN 22 H Creatinine 0.5 L Glucose 136 H POC Glucose 118 H Lactic Acid Calcium 8.2 L Phosphorus Magnesium AST ALT Alkaline Phosphatase Lactate Dehydrogenase Troponin T C-Reactive Protein NT-Pro-B Natriuret Pep Total Protein Albumin LDL Cholesterol Direct Vitamin B12 Crossmatch 12/06/21 12/06/21 12/07/21 05:28 11:27 04:00 WBC RBC Hgb 7.2 L Hct 21.8 L MCV MCH MCHC RDW Plt Count Seg Neuts % (Manual) Lymphocytes % (Manual) Seg Neutrophils # Man Lymphocytes # (Manual) Monocytes # (Manual) PT INR D-Dimer ABG pH ABG pO2 ABG HCO3 ABG O2 Saturation ABG Base Excess ABG Hemoglobin Oxyhemoglobin Sodium Potassium Chloride Carbon Dioxide BUN Creatinine Glucose POC Glucose 142 H 126 H Lactic Acid Calcium Phosphorus Magnesium AST ALT Alkaline Phosphatase Lactate Dehydrogenase Troponin T C-Reactive Protein NT-Pro-B Natriuret Pep Total Protein Albumin LDL Cholesterol Direct Vitamin B12 Crossmatch 12/07/21 12/07/21 12/07/21 04:00 05:30 11:12 WBC RBC Hgb Hct MCV MCH MCHC RDW Plt Count Seg Neuts % (Manual) Lymphocytes % (Manual) Seg Neutrophils # Man Lymphocytes # (Manual) Monocytes # (Manual) PT INR D-Dimer ABG pH ABG pO2 ABG HCO3 ABG O2 Saturation ABG Base Excess ABG Hemoglobin Oxyhemoglobin Sodium Potassium Chloride Carbon Dioxide BUN 22 H Creatinine Glucose 119 H POC Glucose 121 H 124 H Lactic Acid Calcium 8.0 L Phosphorus Magnesium AST ALT Alkaline Phosphatase Lactate Dehydrogenase Troponin T C-Reactive Protein NT-Pro-B Natriuret Pep Total Protein Albumin LDL Cholesterol Direct Vitamin B12 Crossmatch 12/08/21 12/08/21 12/08/21 04:00 04:00 05:39 WBC RBC 2.81 L Hgb 7.7 L Hct 23.5 L MCV MCH MCHC RDW 21.2 H Plt Count Seg Neuts % (Manual) Lymphocytes % (Manual) Seg Neutrophils # Man Lymphocytes # (Manual) Monocytes # (Manual) PT INR D-Dimer ABG pH ABG pO2 ABG HCO3 ABG O2 Saturation ABG Base Excess ABG Hemoglobin Oxyhemoglobin Sodium 135 L Potassium Chloride Carbon Dioxide BUN 23 H Creatinine Glucose 109 H POC Glucose 112 H Lactic Acid Calcium Phosphorus Magnesium AST ALT Alkaline Phosphatase Lactate Dehydrogenase Troponin T C-Reactive Protein NT-Pro-B Natriuret Pep Total Protein Albumin LDL Cholesterol Direct Vitamin B12 Crossmatch 12/08/21 12/09/21 12/09/21 11:03 04:20 04:20 WBC RBC 2.67 L Hgb 7.6 L Hct 22.1 L MCV MCH MCHC RDW 20.8 H Plt Count Seg Neuts % (Manual) Lymphocytes % (Manual) Seg Neutrophils # Man Lymphocytes # (Manual) Monocytes # (Manual) PT INR D-Dimer ABG pH ABG pO2 ABG HCO3 ABG O2 Saturation ABG Base Excess ABG Hemoglobin Oxyhemoglobin Sodium 135 L Potassium Chloride 97.8 L Carbon Dioxide BUN 26 H Creatinine Glucose 119 H POC Glucose 108 H Lactic Acid Calcium 7.7 L Phosphorus Magnesium AST ALT Alkaline Phosphatase Lactate Dehydrogenase Troponin T C-Reactive Protein NT-Pro-B Natriuret Pep Total Protein Albumin LDL Cholesterol Direct Vitamin B12 Crossmatch 12/09/21 12/10/21 12/10/21 11:26 04:33 11:12 WBC RBC Hgb Hct MCV MCH MCHC RDW Plt Count Seg Neuts % (Manual) Lymphocytes % (Manual) Seg Neutrophils # Man Lymphocytes # (Manual) Monocytes # (Manual) PT INR D-Dimer ABG pH ABG pO2 ABG HCO3 ABG O2 Saturation ABG Base Excess ABG Hemoglobin Oxyhemoglobin Sodium 136 L Potassium Chloride Carbon Dioxide BUN 27 H Creatinine Glucose 117 H POC Glucose 110 H 117 H Lactic Acid Calcium 8.2 L Phosphorus Magnesium AST ALT Alkaline Phosphatase Lactate Dehydrogenase Troponin T C-Reactive Protein NT-Pro-B Natriuret Pep Total Protein Albumin LDL Cholesterol Direct Vitamin B12 Crossmatch 12/10/21 12/10/21 12/11/21 16:02 23:31 04:35 WBC RBC 2.57 L Hgb 7.0 L Hct 21.4 L MCV MCH 27 L MCHC RDW 21.1 H Plt Count Seg Neuts % (Manual) Lymphocytes % (Manual) Seg Neutrophils # Man Lymphocytes # (Manual) Monocytes # (Manual) PT INR D-Dimer ABG pH ABG pO2 ABG HCO3 ABG O2 Saturation ABG Base Excess ABG Hemoglobin Oxyhemoglobin Sodium Potassium Chloride Carbon Dioxide BUN Creatinine Glucose POC Glucose 137 H 111 H Lactic Acid Calcium Phosphorus Magnesium AST ALT Alkaline Phosphatase Lactate Dehydrogenase Troponin T C-Reactive Protein NT-Pro-B Natriuret Pep Total Protein Albumin LDL Cholesterol Direct Vitamin B12 Crossmatch 12/11/21 12/11/21 12/11/21 04:35 12:46 16:07 WBC RBC Hgb Hct MCV MCH MCHC RDW Plt Count Seg Neuts % (Manual) Lymphocytes % (Manual) Seg Neutrophils # Man Lymphocytes # (Manual) Monocytes # (Manual) PT INR D-Dimer ABG pH ABG pO2 ABG HCO3 ABG O2 Saturation ABG Base Excess ABG Hemoglobin Oxyhemoglobin Sodium 136 L Potassium Chloride Carbon Dioxide BUN 27 H Creatinine Glucose 112 H POC Glucose 115 H 111 H Lactic Acid Calcium 7.6 L Phosphorus Magnesium AST ALT Alkaline Phosphatase Lactate Dehydrogenase Troponin T C-Reactive Protein NT-Pro-B Natriuret Pep Total Protein Albumin LDL Cholesterol Direct Vitamin B12 Crossmatch 12/11/21 12/12/21 12/12/21 23:42 04:30 04:30 WBC RBC 2.60 L Hgb 7.1 L Hct 21.5 L MCV MCH 27 L MCHC RDW 20.3 H Plt Count Seg Neuts % (Manual) Lymphocytes % (Manual) Seg Neutrophils # Man Lymphocytes # (Manual) Monocytes # (Manual) PT INR D-Dimer ABG pH ABG pO2 ABG HCO3 ABG O2 Saturation ABG Base Excess ABG Hemoglobin Oxyhemoglobin Sodium 135 L Potassium Chloride 97.9 L Carbon Dioxide BUN 26 H Creatinine 0.5 L Glucose 138 H POC Glucose 115 H Lactic Acid Calcium 8.2 L Phosphorus Magnesium AST ALT Alkaline Phosphatase Lactate Dehydrogenase Troponin T C-Reactive Protein NT-Pro-B Natriuret Pep Total Protein Albumin LDL Cholesterol Direct Vitamin B12 Crossmatch 12/12/21 12/12/21 12/12/21 04:30 05:10 11:51 WBC RBC Hgb Hct MCV MCH MCHC RDW Plt Count Seg Neuts % (Manual) Lymphocytes % (Manual) Seg Neutrophils # Man Lymphocytes # (Manual) Monocytes # (Manual) PT INR D-Dimer ABG pH ABG pO2 ABG HCO3 ABG O2 Saturation ABG Base Excess ABG Hemoglobin Oxyhemoglobin Sodium Potassium Chloride Carbon Dioxide BUN Creatinine Glucose POC Glucose 119 H 119 H Lactic Acid Calcium Phosphorus Magnesium AST ALT Alkaline Phosphatase Lactate Dehydrogenase Troponin T C-Reactive Protein NT-Pro-B Natriuret Pep Total Protein Albumin LDL Cholesterol Direct Vitamin B12 Crossmatch See Detail 12/13/21 12/13/21 12/13/21 00:52 04:00 04:00 WBC RBC 2.73 L Hgb 7.4 L Hct 22.8 L MCV MCH 27 L MCHC RDW 20.5 H Plt Count Seg Neuts % (Manual) Lymphocytes % (Manual) Seg Neutrophils # Man Lymphocytes # (Manual) Monocytes # (Manual) PT INR D-Dimer ABG pH ABG pO2 ABG HCO3 ABG O2 Saturation ABG Base Excess ABG Hemoglobin Oxyhemoglobin Sodium 134 L Potassium Chloride 96.7 L Carbon Dioxide BUN 23 H Creatinine 0.5 L Glucose 131 H POC Glucose 131 H Lactic Acid Calcium 8.1 L Phosphorus Magnesium AST ALT Alkaline Phosphatase Lactate Dehydrogenase Troponin T C-Reactive Protein NT-Pro-B Natriuret Pep Total Protein Albumin LDL Cholesterol Direct Vitamin B12 Crossmatch 12/13/21 12/13/21 12/13/21 05:23 12:11 17:18 WBC RBC Hgb Hct MCV MCH MCHC RDW Plt Count Seg Neuts % (Manual) Lymphocytes % (Manual) Seg Neutrophils # Man Lymphocytes # (Manual) Monocytes # (Manual) PT INR D-Dimer ABG pH ABG pO2 ABG HCO3 ABG O2 Saturation ABG Base Excess ABG Hemoglobin Oxyhemoglobin Sodium Potassium Chloride Carbon Dioxide BUN Creatinine Glucose POC Glucose 121 H 143 H 148 H Lactic Acid Calcium Phosphorus Magnesium AST ALT Alkaline Phosphatase Lactate Dehydrogenase Troponin T C-Reactive Protein NT-Pro-B Natriuret Pep Total Protein Albumin LDL Cholesterol Direct Vitamin B12 Crossmatch 12/14/21 12/14/21 12/14/21 00:54 04:20 04:20 WBC RBC 2.39 L Hgb 6.5 L Hct 20.3 L MCV MCH 27 L MCHC RDW 20.3 H Plt Count Seg Neuts % (Manual) Lymphocytes % (Manual) Seg Neutrophils # Man Lymphocytes # (Manual) Monocytes # (Manual) PT INR D-Dimer ABG pH ABG pO2 ABG HCO3 ABG O2 Saturation ABG Base Excess ABG Hemoglobin Oxyhemoglobin Sodium 130 L Potassium Chloride 93.5 L Carbon Dioxide BUN 25 H Creatinine Glucose 123 H POC Glucose 123 H Lactic Acid Calcium 8.0 L Phosphorus Magnesium AST ALT Alkaline Phosphatase Lactate Dehydrogenase Troponin T C-Reactive Protein NT-Pro-B Natriuret Pep Total Protein Albumin LDL Cholesterol Direct Vitamin B12 Crossmatch 12/14/21 12/14/21 12/14/21 05:06 08:17 10:30 WBC RBC Hgb Hct MCV MCH MCHC RDW Plt Count Seg Neuts % (Manual) Lymphocytes % (Manual) Seg Neutrophils # Man Lymphocytes # (Manual) Monocytes # (Manual) PT INR D-Dimer ABG pH ABG pO2 ABG HCO3 ABG O2 Saturation ABG Base Excess ABG Hemoglobin Oxyhemoglobin Sodium Potassium Chloride Carbon Dioxide BUN Creatinine Glucose POC Glucose 131 H 119 H Lactic Acid Calcium Phosphorus Magnesium AST ALT Alkaline Phosphatase Lactate Dehydrogenase Troponin T C-Reactive Protein NT-Pro-B Natriuret Pep Total Protein Albumin LDL Cholesterol Direct Vitamin B12 Crossmatch See Detail 12/14/21 12/14/21 12/14/21 12:15 16:37 23:27 WBC RBC Hgb Hct MCV MCH MCHC RDW Plt Count Seg Neuts % (Manual) Lymphocytes % (Manual) Seg Neutrophils # Man Lymphocytes # (Manual) Monocytes # (Manual) PT INR D-Dimer ABG pH ABG pO2 ABG HCO3 ABG O2 Saturation ABG Base Excess ABG Hemoglobin Oxyhemoglobin Sodium Potassium Chloride Carbon Dioxide BUN Creatinine Glucose POC Glucose 147 H 141 H 130 H Lactic Acid Calcium Phosphorus Magnesium AST ALT Alkaline Phosphatase Lactate Dehydrogenase Troponin T C-Reactive Protein NT-Pro-B Natriuret Pep Total Protein Albumin LDL Cholesterol Direct Vitamin B12 Crossmatch 12/15/21 12/15/21 12/15/21 05:00 07:00 07:00 WBC 12.3 H RBC 3.27 L Hgb 8.8 L Hct 27.5 L D MCV MCH 27 L MCHC RDW 19.0 H Plt Count Seg Neuts % (Manual) Lymphocytes % (Manual) Seg Neutrophils # Man Lymphocytes # (Manual) Monocytes # (Manual) PT INR D-Dimer ABG pH ABG pO2 ABG HCO3 ABG O2 Saturation ABG Base Excess ABG Hemoglobin Oxyhemoglobin Sodium 134 L Potassium Chloride 95.7 L Carbon Dioxide BUN 28 H Creatinine Glucose 129 H POC Glucose 129 H Lactic Acid Calcium 8.2 L Phosphorus Magnesium AST ALT Alkaline Phosphatase Lactate Dehydrogenase Troponin T C-Reactive Protein NT-Pro-B Natriuret Pep Total Protein Albumin LDL Cholesterol Direct Vitamin B12 Crossmatch 12/15/21 12/15/21 12/15/21 11:18 16:00 23:39 WBC RBC Hgb Hct MCV MCH MCHC RDW Plt Count Seg Neuts % (Manual) Lymphocytes % (Manual) Seg Neutrophils # Man Lymphocytes # (Manual) Monocytes # (Manual) PT INR D-Dimer ABG pH ABG pO2 ABG HCO3 ABG O2 Saturation ABG Base Excess ABG Hemoglobin Oxyhemoglobin Sodium Potassium Chloride Carbon Dioxide BUN Creatinine Glucose POC Glucose 139 H 137 H 146 H Lactic Acid Calcium Phosphorus Magnesium AST ALT Alkaline Phosphatase Lactate Dehydrogenase Troponin T C-Reactive Protein NT-Pro-B Natriuret Pep Total Protein Albumin LDL Cholesterol Direct Vitamin B12 Crossmatch 12/16/21 12/16/21 12/16/21 05:24 10:21 10:21 WBC 15.3 H RBC 3.24 L Hgb 8.9 L Hct 27.7 L MCV MCH MCHC RDW 19.0 H Plt Count Seg Neuts % (Manual) Lymphocytes % (Manual) Seg Neutrophils # Man Lymphocytes # (Manual) Monocytes # (Manual) PT INR D-Dimer ABG pH ABG pO2 ABG HCO3 ABG O2 Saturation ABG Base Excess ABG Hemoglobin Oxyhemoglobin Sodium 131 L Potassium 3.5 L Chloride 92.7 L Carbon Dioxide BUN 36 H Creatinine Glucose 160 H POC Glucose 121 H Lactic Acid Calcium Phosphorus Magnesium 1.60 L AST ALT Alkaline Phosphatase Lactate Dehydrogenase Troponin T C-Reactive Protein NT-Pro-B Natriuret Pep Total Protein Albumin LDL Cholesterol Direct Vitamin B12 Crossmatch 12/16/21 12/16/21 12/16/21 11:21 18:28 20:52 WBC RBC Hgb Hct MCV MCH MCHC RDW Plt Count Seg Neuts % (Manual) Lymphocytes % (Manual) Seg Neutrophils # Man Lymphocytes # (Manual) Monocytes # (Manual) PT INR D-Dimer ABG pH 7.479 H ABG pO2 79.3 L ABG HCO3 27.3 H ABG O2 Saturation ABG Base Excess 3.6 H ABG Hemoglobin 9.1 L Oxyhemoglobin 94.9 L Sodium Potassium Chloride Carbon Dioxide BUN Creatinine Glucose POC Glucose 153 H 132 H Lactic Acid Calcium Phosphorus Magnesium AST ALT Alkaline Phosphatase Lactate Dehydrogenase Troponin T C-Reactive Protein NT-Pro-B Natriuret Pep Total Protein Albumin LDL Cholesterol Direct Vitamin B12 Crossmatch 12/16/21 12/17/21 12/17/21 23:30 04:25 04:25 WBC 12.3 H RBC 2.16 L Hgb 6.0 L Hct 18.1 L* D MCV MCH MCHC RDW 19.4 H Plt Count Seg Neuts % (Manual) Lymphocytes % (Manual) Seg Neutrophils # Man Lymphocytes # (Manual) Monocytes # (Manual) PT INR D-Dimer ABG pH ABG pO2 ABG HCO3 ABG O2 Saturation ABG Base Excess ABG Hemoglobin Oxyhemoglobin Sodium 132 L Potassium 3.2 L Chloride 112.0 H Carbon Dioxide BUN 32 H Creatinine Glucose 122 H POC Glucose 137 H Lactic Acid Calcium 6.8 L D Phosphorus Magnesium AST ALT Alkaline Phosphatase Lactate Dehydrogenase Troponin T C-Reactive Protein NT-Pro-B Natriuret Pep Total Protein Albumin LDL Cholesterol Direct Vitamin B12 Crossmatch 12/17/21 12/17/21 12/17/21 05:30 11:49 14:45 WBC RBC Hgb 9.7 L D Hct MCV MCH MCHC RDW Plt Count Seg Neuts % (Manual) Lymphocytes % (Manual) Seg Neutrophils # Man Lymphocytes # (Manual) Monocytes # (Manual) PT INR D-Dimer ABG pH ABG pO2 ABG HCO3 ABG O2 Saturation ABG Base Excess ABG Hemoglobin Oxyhemoglobin Sodium Potassium Chloride Carbon Dioxide BUN Creatinine Glucose POC Glucose 137 H 143 H Lactic Acid Calcium Phosphorus Magnesium AST ALT Alkaline Phosphatase Lactate Dehydrogenase Troponin T C-Reactive Protein NT-Pro-B Natriuret Pep Total Protein Albumin LDL Cholesterol Direct Vitamin B12 Crossmatch 12/17/21 12/18/21 12/18/21 17:01 05:04 05:04 WBC 13.8 H RBC 3.44 L Hgb 9.9 L Hct 28.8 L MCV MCH MCHC RDW 18.1 H Plt Count Seg Neuts % (Manual) Lymphocytes % (Manual) Seg Neutrophils # Man Lymphocytes # (Manual) Monocytes # (Manual) PT INR D-Dimer ABG pH ABG pO2 ABG HCO3 ABG O2 Saturation ABG Base Excess ABG Hemoglobin Oxyhemoglobin Sodium 132 L Potassium Chloride 97.4 L Carbon Dioxide BUN 38 H Creatinine Glucose 134 H POC Glucose 132 H Lactic Acid Calcium Phosphorus Magnesium AST ALT Alkaline Phosphatase Lactate Dehydrogenase Troponin T C-Reactive Protein NT-Pro-B Natriuret Pep Total Protein Albumin LDL Cholesterol Direct Vitamin B12 Crossmatch 12/18/21 12/18/21 12/18/21 05:28 10:57 16:27 WBC RBC Hgb Hct MCV MCH MCHC RDW Plt Count Seg Neuts % (Manual) Lymphocytes % (Manual) Seg Neutrophils # Man Lymphocytes # (Manual) Monocytes # (Manual) PT INR D-Dimer ABG pH ABG pO2 ABG HCO3 ABG O2 Saturation ABG Base Excess ABG Hemoglobin Oxyhemoglobin Sodium Potassium Chloride Carbon Dioxide BUN Creatinine Glucose POC Glucose 118 H 132 H 130 H Lactic Acid Calcium Phosphorus Magnesium AST ALT Alkaline Phosphatase Lactate Dehydrogenase Troponin T C-Reactive Protein NT-Pro-B Natriuret Pep Total Protein Albumin LDL Cholesterol Direct Vitamin B12 Crossmatch 12/19/21 12/19/21 12/19/21 00:02 04:41 04:41 WBC 16.0 H RBC 3.45 L Hgb 9.7 L Hct 29.1 L MCV MCH MCHC RDW 17.8 H Plt Count Seg Neuts % (Manual) Lymphocytes % (Manual) Seg Neutrophils # Man Lymphocytes # (Manual) Monocytes # (Manual) PT INR D-Dimer ABG pH ABG pO2 ABG HCO3 ABG O2 Saturation ABG Base Excess ABG Hemoglobin Oxyhemoglobin Sodium 133 L Potassium Chloride 97.9 L Carbon Dioxide BUN 36 H Creatinine 0.5 L Glucose 126 H POC Glucose 127 H Lactic Acid Calcium 8.3 L Phosphorus Magnesium AST ALT Alkaline Phosphatase Lactate Dehydrogenase Troponin T C-Reactive Protein NT-Pro-B Natriuret Pep Total Protein Albumin LDL Cholesterol Direct Vitamin B12 Crossmatch 12/19/21 12/19/21 12/19/21 05:26 12:20 16:43 WBC RBC Hgb Hct MCV MCH MCHC RDW Plt Count Seg Neuts % (Manual) Lymphocytes % (Manual) Seg Neutrophils # Man Lymphocytes # (Manual) Monocytes # (Manual) PT INR D-Dimer ABG pH ABG pO2 ABG HCO3 ABG O2 Saturation ABG Base Excess ABG Hemoglobin Oxyhemoglobin Sodium Potassium Chloride Carbon Dioxide BUN Creatinine Glucose POC Glucose 119 H 145 H 126 H Lactic Acid Calcium Phosphorus Magnesium AST ALT Alkaline Phosphatase Lactate Dehydrogenase Troponin T C-Reactive Protein NT-Pro-B Natriuret Pep Total Protein Albumin LDL Cholesterol Direct Vitamin B12 Crossmatch 12/19/21 12/20/21 12/20/21 23:30 04:54 04:54 WBC 12.3 H RBC 3.54 L Hgb 10.0 L Hct 29.5 L MCV MCH MCHC RDW 17.8 H Plt Count Seg Neuts % (Manual) 88.0 H Lymphocytes % (Manual) 6.0 L Seg Neutrophils # Man 10.8 H Lymphocytes # (Manual) 0.7 L Monocytes # (Manual) PT INR D-Dimer ABG pH ABG pO2 ABG HCO3 ABG O2 Saturation ABG Base Excess ABG Hemoglobin Oxyhemoglobin Sodium 131 L Potassium Chloride 96.2 L Carbon Dioxide BUN 36 H Creatinine 0.5 L Glucose 130 H POC Glucose 117 H Lactic Acid Calcium Phosphorus Magnesium AST ALT Alkaline Phosphatase Lactate Dehydrogenase Troponin T C-Reactive Protein NT-Pro-B Natriuret Pep Total Protein Albumin LDL Cholesterol Direct Vitamin B12 Crossmatch 12/20/21 12/20/21 12/20/21 05:20 11:51 17:30 WBC RBC Hgb Hct MCV MCH MCHC RDW Plt Count Seg Neuts % (Manual) Lymphocytes % (Manual) Seg Neutrophils # Man Lymphocytes # (Manual) Monocytes # (Manual) PT INR D-Dimer ABG pH ABG pO2 ABG HCO3 ABG O2 Saturation ABG Base Excess ABG Hemoglobin Oxyhemoglobin Sodium Potassium Chloride Carbon Dioxide BUN Creatinine Glucose POC Glucose 126 H 119 H 127 H Lactic Acid Calcium Phosphorus Magnesium AST ALT Alkaline Phosphatase Lactate Dehydrogenase Troponin T C-Reactive Protein NT-Pro-B Natriuret Pep Total Protein Albumin LDL Cholesterol Direct Vitamin B12 Crossmatch 12/21/21 12/21/21 12/21/21 00:45 04:21 04:21 WBC RBC 3.47 L Hgb 9.4 L Hct 29.2 L MCV MCH 27 L MCHC RDW 18.1 H Plt Count Seg Neuts % (Manual) Lymphocytes % (Manual) Seg Neutrophils # Man Lymphocytes # (Manual) Monocytes # (Manual) PT INR D-Dimer ABG pH ABG pO2 ABG HCO3 ABG O2 Saturation ABG Base Excess ABG Hemoglobin Oxyhemoglobin Sodium 134 L Potassium Chloride Carbon Dioxide BUN 35 H Creatinine 0.5 L Glucose 122 H POC Glucose 125 H Lactic Acid Calcium 8.2 L Phosphorus Magnesium AST ALT Alkaline Phosphatase Lactate Dehydrogenase Troponin T C-Reactive Protein NT-Pro-B Natriuret Pep Total Protein Albumin LDL Cholesterol Direct Vitamin B12 Crossmatch 12/21/21 12/21/21 12/21/21 05:38 11:29 16:16 WBC RBC Hgb Hct MCV MCH MCHC RDW Plt Count Seg Neuts % (Manual) Lymphocytes % (Manual) Seg Neutrophils # Man Lymphocytes # (Manual) Monocytes # (Manual) PT INR D-Dimer ABG pH ABG pO2 ABG HCO3 ABG O2 Saturation ABG Base Excess ABG Hemoglobin Oxyhemoglobin Sodium Potassium Chloride Carbon Dioxide BUN Creatinine Glucose POC Glucose 127 H 121 H 113 H Lactic Acid Calcium Phosphorus Magnesium AST ALT Alkaline Phosphatase Lactate Dehydrogenase Troponin T C-Reactive Protein NT-Pro-B Natriuret Pep Total Protein Albumin LDL Cholesterol Direct Vitamin B12 Crossmatch 03/07/22 03/07/22 03/08/22 04:58 04:58 06:40 WBC 11.5 H RBC 3.43 L Hgb 9.8 L Hct 28.7 L MCV MCH MCHC RDW 18.5 H 17.9 H Plt Count Seg Neuts % (Manual) Lymphocytes % (Manual) Seg Neutrophils # Man Lymphocytes # (Manual) Monocytes # (Manual) PT INR D-Dimer ABG pH ABG pO2 ABG HCO3 ABG O2 Saturation ABG Base Excess ABG Hemoglobin Oxyhemoglobin Sodium 130 L Potassium Chloride 97.8 L Carbon Dioxide BUN 31 H Creatinine 0.5 L Glucose 122 H POC Glucose Lactic Acid Calcium 7.9 L Phosphorus Magnesium AST ALT Alkaline Phosphatase Lactate Dehydrogenase Troponin T C-Reactive Protein NT-Pro-B Natriuret Pep Total Protein Albumin LDL Cholesterol Direct Vitamin B12 Crossmatch 12/23/21 12/23/21 12/24/21 06:40 23:25 04:24 WBC 11.7 H RBC Hgb 9.8 L Hct MCV MCH 26 L MCHC RDW 18.1 H Plt Count Seg Neuts % (Manual) Lymphocytes % (Manual) Seg Neutrophils # Man Lymphocytes # (Manual) Monocytes # (Manual) PT INR D-Dimer ABG pH ABG pO2 ABG HCO3 ABG O2 Saturation ABG Base Excess ABG Hemoglobin Oxyhemoglobin Sodium 136 L Potassium Chloride Carbon Dioxide BUN 27 H Creatinine 0.4 L Glucose 107 H POC Glucose 110 H Lactic Acid Calcium 8.1 L Phosphorus Magnesium AST ALT Alkaline Phosphatase Lactate Dehydrogenase Troponin T C-Reactive Protein NT-Pro-B Natriuret Pep Total Protein Albumin LDL Cholesterol Direct Vitamin B12 Crossmatch 12/24/21 12/24/21 12/24/21 04:24 11:08 15:45 WBC RBC Hgb Hct MCV MCH MCHC RDW Plt Count Seg Neuts % (Manual) Lymphocytes % (Manual) Seg Neutrophils # Man Lymphocytes # (Manual) Monocytes # (Manual) PT INR D-Dimer ABG pH ABG pO2 ABG HCO3 ABG O2 Saturation ABG Base Excess ABG Hemoglobin Oxyhemoglobin Sodium 132 L Potassium Chloride Carbon Dioxide BUN 27 H Creatinine 0.3 L Glucose 108 H POC Glucose 116 H 107 H Lactic Acid Calcium Phosphorus Magnesium AST ALT Alkaline Phosphatase Lactate Dehydrogenase Troponin T C-Reactive Protein NT-Pro-B Natriuret Pep Total Protein Albumin LDL Cholesterol Direct Vitamin B12 Crossmatch 03/09/22 03/10/22 03/10/22 23:43 05:29 11:48 WBC RBC Hgb Hct MCV MCH MCHC RDW Plt Count Seg Neuts % (Manual) Lymphocytes % (Manual) Seg Neutrophils # Man Lymphocytes # (Manual) Monocytes # (Manual) PT INR D-Dimer ABG pH ABG pO2 ABG HCO3 ABG O2 Saturation ABG Base Excess ABG Hemoglobin Oxyhemoglobin Sodium Potassium Chloride Carbon Dioxide BUN Creatinine Glucose POC Glucose 123 H 107 H 119 H Lactic Acid Calcium Phosphorus Magnesium AST ALT Alkaline Phosphatase Lactate Dehydrogenase Troponin T C-Reactive Protein NT-Pro-B Natriuret Pep Total Protein Albumin LDL Cholesterol Direct Vitamin B12 Crossmatch 12/26/21 12/26/21 12/26/21 00:06 05:56 07:51 WBC 11.4 H RBC 3.40 L Hgb 9.3 L Hct 28.3 L MCV MCH 27 L MCHC RDW 18.2 H Plt Count Seg Neuts % (Manual) Lymphocytes % (Manual) Seg Neutrophils # Man Lymphocytes # (Manual) Monocytes # (Manual) PT INR D-Dimer ABG pH ABG pO2 ABG HCO3 ABG O2 Saturation ABG Base Excess ABG Hemoglobin Oxyhemoglobin Sodium Potassium Chloride Carbon Dioxide BUN Creatinine Glucose POC Glucose 133 H 107 H Lactic Acid Calcium Phosphorus Magnesium AST ALT Alkaline Phosphatase Lactate Dehydrogenase Troponin T C-Reactive Protein NT-Pro-B Natriuret Pep Total Protein Albumin LDL Cholesterol Direct Vitamin B12 Crossmatch 12/26/21 12/26/21 12/26/21 07:51 11:43 17:06 WBC RBC Hgb Hct MCV MCH MCHC RDW Plt Count Seg Neuts % (Manual) Lymphocytes % (Manual) Seg Neutrophils # Man Lymphocytes # (Manual) Monocytes # (Manual) PT INR D-Dimer ABG pH ABG pO2 ABG HCO3 ABG O2 Saturation ABG Base Excess ABG Hemoglobin Oxyhemoglobin Sodium 136 L Potassium Chloride Carbon Dioxide BUN 25 H Creatinine 0.3 L Glucose 131 H POC Glucose 119 H 128 H Lactic Acid Calcium Phosphorus Magnesium AST ALT Alkaline Phosphatase Lactate Dehydrogenase Troponin T C-Reactive Protein NT-Pro-B Natriuret Pep Total Protein Albumin LDL Cholesterol Direct Vitamin B12 Crossmatch 12/28/21 12/28/21 12/29/21 09:05 09:05 04:40 WBC RBC 3.19 L Hgb 8.9 L Hct 26.4 L MCV MCH 27 L MCHC RDW 18.4 H 17.9 H Plt Count Seg Neuts % (Manual) Lymphocytes % (Manual) Seg Neutrophils # Man Lymphocytes # (Manual) Monocytes # (Manual) PT INR D-Dimer ABG pH ABG pO2 ABG HCO3 ABG O2 Saturation ABG Base Excess ABG Hemoglobin Oxyhemoglobin Sodium 135 L Potassium Chloride 97.8 L Carbon Dioxide BUN 18 H Creatinine 0.3 L Glucose POC Glucose Lactic Acid Calcium Phosphorus Magnesium AST ALT Alkaline Phosphatase Lactate Dehydrogenase Troponin T C-Reactive Protein NT-Pro-B Natriuret Pep Total Protein Albumin LDL Cholesterol Direct Vitamin B12 Crossmatch 12/29/21 12/29/21 12/30/21 04:40 12:47 04:05 WBC RBC 3.29 L Hgb 8.7 L Hct 27.6 L MCV MCH 27 L MCHC RDW 17.6 H Plt Count Seg Neuts % (Manual) Lymphocytes % (Manual) Seg Neutrophils # Man Lymphocytes # (Manual) Monocytes # (Manual) PT INR D-Dimer ABG pH ABG pO2 ABG HCO3 ABG O2 Saturation ABG Base Excess ABG Hemoglobin Oxyhemoglobin Sodium 136 L Potassium Chloride Carbon Dioxide BUN Creatinine 0.3 L Glucose POC Glucose 67 L Lactic Acid Calcium 8.3 L Phosphorus Magnesium AST ALT Alkaline Phosphatase Lactate Dehydrogenase Troponin T C-Reactive Protein NT-Pro-B Natriuret Pep Total Protein Albumin LDL Cholesterol Direct Vitamin B12 Crossmatch 12/30/21 12/31/21 12/31/21 04:05 00:07 04:00 WBC RBC 3.05 L Hgb 8.5 L Hct 25.5 L MCV MCH MCHC RDW 18.2 H Plt Count Seg Neuts % (Manual) Lymphocytes % (Manual) Seg Neutrophils # Man Lymphocytes # (Manual) Monocytes # (Manual) PT INR D-Dimer ABG pH ABG pO2 ABG HCO3 ABG O2 Saturation ABG Base Excess ABG Hemoglobin Oxyhemoglobin Sodium 136 L Potassium 3.5 L Chloride Carbon Dioxide BUN Creatinine 0.4 L Glucose POC Glucose 139 H Lactic Acid Calcium Phosphorus Magnesium 1.50 L AST ALT Alkaline Phosphatase Lactate Dehydrogenase Troponin T C-Reactive Protein NT-Pro-B Natriuret Pep Total Protein Albumin LDL Cholesterol Direct Vitamin B12 Crossmatch 12/31/21 12/31/21 12/31/21 04:00 04:52 11:23 WBC RBC Hgb Hct MCV MCH MCHC RDW Plt Count Seg Neuts % (Manual) Lymphocytes % (Manual) Seg Neutrophils # Man Lymphocytes # (Manual) Monocytes # (Manual) PT INR D-Dimer ABG pH ABG pO2 ABG HCO3 ABG O2 Saturation ABG Base Excess ABG Hemoglobin Oxyhemoglobin Sodium Potassium Chloride Carbon Dioxide BUN 19 H Creatinine 0.4 L Glucose 116 H POC Glucose 121 H 116 H Lactic Acid Calcium Phosphorus Magnesium AST ALT Alkaline Phosphatase Lactate Dehydrogenase Troponin T C-Reactive Protein NT-Pro-B Natriuret Pep Total Protein Albumin LDL Cholesterol Direct Vitamin B12 Crossmatch Chest x-ray: image reviewed Allied health notes reviewed: RT
[2021-12-31] MEDS ORDERED: metOLazone 2.5 MG TAB PO ONE (15:00)
[2021-12-31] MEDS: VANCOMYCIN/NS 1 GM/250 ML 1 GM/250 ML BAG IV SCH (19:09)
[2021-12-31] MEDS: ALPRAZolam 0.25 MG TAB FEEDTUBE PRN (20:53)
[2021-12-31] MEDS: MELATONIN 5 MG TAB PO SCH (21:02)
[2021-12-31] MEDS: PRAVASTATIN 20 MG TAB FEEDTUBE SCH (21:02)
[2021-12-31] MEDS: traZODone 50 MG TAB PO SCH (21:02)
[2022-01-01] MEDS: SUCRALFATE 1 GM/10 ML ORAL LIQD FEEDTUBE SCH ×4 (00:21→18:18)
[2022-01-01 04:58] LABS: Hematocrit 23.2 % (30.3-42.9); Hemoglobin 7.7 gm/dl (10.1-14.3); Mean Corpuscular HGB Conc 33 % (30-34); Mean Corpuscular Volume 82 fl (79-97); Platelet Count 208 K/mm3 (140-440); Red Blood Count 2.83 M/mm3 (3.65-5.03); Red Cell Distribution Width 18.3 % (13.2-15.2)
[2022-01-01 05:19] LABS: Blood Urea Nitrogen 21 mg/dL (7-17); Hemolysis Index 1
[2022-01-01 05:20] LABS: BUN/Creatinine Ratio 42
[2022-01-01] MEDS: METOCLOPRAMIDE 10 MG/2 ML INJ IV SCH ×3 (05:41→21:02)
[2022-01-01] MEDS: LEVOTHYROXINE 125 MCG TAB FEEDTUBE SCH (05:41)
[2022-01-01] MEDS: MIDODRINE 5 MG TAB FEEDTUBE SCH ×3 (09:03→15:20)
[2022-01-01] MEDS: busPIRone 5 MG TAB FEEDTUBE SCH ×2 (09:04→21:00)
[2022-01-01] MEDS: GABAPENTIN 100 MG CAP FEEDTUBE SCH (09:04)
[2022-01-01] MEDS: QUEtiapine 25 MG TAB FEEDTUBE SCH ×2 (09:04→21:04)
[2022-01-01] MEDS: HYDROcodone/ACETAMINOPHEN 10-325MG TAB FEEDTUBE SCH ×3 (09:04→21:00)
[2022-01-01] MEDS: LANSOPRAZOLE 30 MG SOLUTAB FEEDTUBE SCH ×2 (09:04→21:02)
[2022-01-01] MEDS: SPIRONOLACTONE 25 MG TAB FEEDTUBE SCH (09:05)
[2022-01-01] MEDS: DOCUSATE SODIUM 100 MG/10 ML ORAL LIQD FEEDTUBE SCH ×2 (09:05→21:01)
[2022-01-01] MEDS: METOPROLOL TARTRATE 25 MG TAB FEEDTUBE SCH ×2 (09:05→21:03)
[2022-01-01] MEDS: POLYETHYLENE GLYCOL 3350 17 GM POWDER FEEDTUBE SCH (09:06)
[2022-01-01] MEDS: SENNOSIDES ORAL LIQD 8.8 MG/5 ML ORAL LIQD FEEDTUBE SCH ×2 (09:06→21:01)
--- NOTE | 2022-01-01 10:12 | XRay Report ---
CHEST 1 VIEW 01/01/2022 9:02 AM INDICATION / CLINICAL INFORMATION: Follow up, Respiratory Failure on the vent. COMPARISON: 12/30/2021 FINDINGS: SUPPORT DEVICES: Stable, satisfactory device positioning. HEART / MEDIASTINUM: No significant abnormality. LUNGS / PLEURA: Diffuse opacities in bilateral lungs with bilateral effusions appear increased No pne umothorax. ADDITIONAL FINDINGS: No significant additional findings. IMPRESSION: 1. Worsening bilateral pulmonary opacities and effusions Signer Name: Eduard Hahn MD Signed: 01/01/2022 10:08 AM Workstation Name: [email or web address]
--- NOTE | 2022-01-01 10:27 | Progress Note ---
<LONNIE MAURICE - Last Filed: 01/01/22 18:59> Assessment and Plan Assessment and plan: This is a 81-year-old female with known history of diabetes mellitus, hypertension, PPM, and arthritis admitted for sepsis and acute hypoxia respiratory failure 2/2 bilateral pneumonia requiring intubation and ventilatory support Hospital Course to date: ------ 12/04: Increased agitation and anxiety overnight, remains on buspar and seroquel, trazadone added to promote rest. Patient is now working with PT, keep patient engage and awake during the day so she can rest at night. No BM for over 5 days, BR was adjusted. Patient did not tolerate PST again yesterday, continue daily PST as tolerated. Continue to titrate pressor for MAP above 65. Pending possible LTAC placement, case management to arrange. 12/05: Still not getting much rest overnight, will add melatonin for sleep. Continue to engage patient during the day and promote rest at night. TF was held due to concern for possible bleeding, H&H remains stable and stools normal this am. Resume TF and continue PPI and carafate. Remains on low dose levophed, titrate as tolerated. Continue daily PST. Possible LTAC placement, awaiting approval. 12/06: [facility] overnight. Patient rested overnight. Continue supportive measures. Daily PST as tolerated. Awaiting possible LTAC placement 12/07: [facility] overnight. Plan for Tpiece trial today. Continue current supportive measures. Possible LTAC placement 12/08: Patient placed on pressure support trial again today, started on Xanax, no acute events reported overnight. Awaiting insurance approval for LTAC. 12/09: Levophed discontinued, LTAC transfer denied, started on midodrine and Lasix, ultrasound chest pending, started on Xanax 0.[address] De León updated family at bedside today. Started on Dilaudid every 3 hours as needed. 12/10: Patient placed on CPAP trial this morning, no acute events reported overnight. Will order ultrasound-guided thoracentesis. 12/11: Patient had a thoracentesis today, will decrease Xanax dosage and continue midodrine and diuresing. Patient failed CPAP today. 12/12: Patient not tolerate CPAP trials today, no acute events reported overnight 12/13: No acute events overnight. continue PSV trials as tolerated. Daughter updated at bedside 12/14: Patient noted to be anemic today, worsened gastric occult. Patient seems to be oversedated therefore Xanax changed to as needed and fentanyl patch discontinued. We will continue to monitor hyponatremia. 12/15: [facility] overnight. s/p 1unit of PRBCs, H&H stable this am, no signs of any active bleeding. Continue daily PST as tolerated. Awaiting placement. 12/16: Hypertensive this am, Midodrine decreased. Continue daily PST. [facility] overnight 12/17: Patient Hgb dropped to 6 this am, no s/s of any active bleeding, VSS. Patient received 1unit of PRBC, will continue to trend H&H. Patient was pancul tured and back on IV Abx due to persistent fevers yesterday. ID is also back on the case. Continue IV Abx per ID and f/u on cultures data for sensitivity. Patient also failed PST yesterday, continue daily PST as tolerated. Electrolytes repleted, repeat labs in the am. 12/18: Patient blood cultures is growing GPC 4 out 4 bottles. PICC line D/Sara, patient is already on IV Abx-cefepine and Vanc and ID is following. Patient remains hemodynamically stable. Daily PST as tolerated adn PRN Benzo for anx iety. 12/19: [facility] overnight. Culture data noted, continue IV Abx per ID. Orders placed for repeat Bculture. Sánchez D/C overnight, patient is voiding. Check bladder scan as needed for retention. Patient failed PST again today. Continue daily PST as tolerated. 12/20: Fevers improved, Cultures +MRSA, on Vanco per ID. Repeat 2D Echo to r/o endocarditis. Patient continue to fail PST, PEEP increased to 8 today. Continue pulmonary hygiene and vent wean per [facility]. Sodium tab added for hyponatremia. 12/21: Remains afebrile, repeat B.culture with NGTD, 2D echo noted with no obvious vegetation noted. Continue IV Vanc per ID. Hyponatremia improved. Tolerating PST this am, Continue daily PST. 12/22: Patient on pressure support trial for approximately 4 hours today, midodrine dosage increased due to hypotension. Lasix discontinued. 12/23: Started on a.m. Seroquel dose, midodrine increased to 10 mg 3 times daily, 500 mL normal saline bolus. 12/24: Seroquel dose changed (25 every morning, 75 nightly). updated at bedside by Dr. De León. CPAP trials as tolerated. Continue vancomycin. Awaiting placement. 12/25: Continue CPAP as tolerated, added gasx for distention. Continue supportive care 12/26: Patient failed PSV this AM. no acute events overnight. 12/27: GI re-consulted due to abdominal distention. No acute events reported overnight. CPAP trials as tolerated. Dr. Mckenna will get a KUB to rule out possible obstruction. 12/28: KUB shows no acute process, CXR shows improvement. CPAP trials as tolerated. 12/29: CT Abd/pelvis noted with moderated bilateral pleural effusion, anasarca, and ascites. X1dose of IV lasix administered. D/w CCM and GI orders plan for thora and paracentesis by IR. Will also start patient on aldactone Qday. Patient is tolerating trickle feeds this am, continue TF and BR adjusted for constipation. Plan of care was discussed with patient and her at the bedside. Thorough discussion on patient's overall poor prognosis and that patient will most likely be vent dependent. Patient's voiced understanding of the info given. All questions and concerns were voiced at this time. 12/30: Patient did not tolerate thoracentesis in IR yesterday due to change in LOC and hypoxia. Plan for possible bedside thoracentesis and paracentesis today. Patient remains afebrile. 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 Patient remains with sign. Piting edema and anasarca, X1 does of PO Zaroxolyn and 2m of IV lasix given. Electrolytes repleted, repeat lab in the am. 12/31: Tolerated Rt. thoracentesis at the bedside yesterday, 1.4L removed. Patient remains stable on the vent this am, tolerating CPAP today PS dropped to 14. Recent CXR noted, left pleural effusion improved. Patient tolerated gentle diurese yesterday, good urine output reported. D/w CCM hold off on Left thoracentesis today, continue PO Aldactone and additonal zaroxolyn and IV lasix again today. F/u CXR in the am. 01/01: This am CXR noted with worsening bilateral pleural effusion. Patient is stable and tolerating PST this am, however PS is back up to 20 this am. BP is soft this am will hold off on IV diuretic for today, continue PO Aldactone. D/w CCM continue gentle diurese as tolerated. Will reassess in the am. Continue support care. Assessment and Plan #MRSA Bacteremia #MRSA Pneumonia #Septic Shock POA-resolved - Presented with fevers, leukocytosis, and hypotension - COVID PCR negative - 11/04 Bcult with 3/4 group B strep bacteremia, [id number] Bculture NGTD - 11/04 2D Echo with no evidence of vegetation - New fevers on 12/16- Blood and sputum culture with MRSA - 12/16- UA is unremarkable - 12/18 repeat B.culture with NGTD - 12/19 Repeat 2D echo- with no obvious vegetation noted. EF 35-40% - ID on consult, appreciate recommendations - Continue IV Abx- Vanco per ID recs. dedicated intermodal truck driver therapy, need a PICC - Trend CBC #Acute Hypoxic Respiratory Failure 11/19 #MRSA Pneumonia #Bilateral Pleural Effusion #Right Pneumothorax-resolved - COVID PCR negative - CXR shows Bilateral opacities, may be volume overloaded - CCM consulted, appreciate recommendations - Intubated on 11/06, ETT exchanged on 11/11 - 11/11 Bronchoscopy--Complicated by spontaneous pneumothorax - 11/11 S/p chest tube placement for right pneumothorax, removed by patient on 11/15 - 11/26 s/p Tracheostomy and PEGtube placement - 12/11 US thoracentesis due to moderate pleural effusion-1L removed - 12/29 US thoracentesis- 1.4L removed - This am Vent Setting:CPAP-30%,8 PS-20 - Continue Nebs treatment - Continue daily PST as tolerated - VAP bundle addressed - Aspiration precaution HOB above 30 - PRN ABG and CXR per CCM - Continue SPO2 monitoring for SPO2 goal above 92% #CHF- EF 30-35% with PPM #Hypotension-resolved #Septic Kristian-resolved - SR on the monitor, HR 70-90s - 11/04 Echo-EF 30-35% - 12/19 Repeat EF 35-40% - Continue beta-charleen - Not on aspirin due to allergy - Statins resumed - Continue blood pressure monitor per protocol - Maintain MAP above 65 - Cardiology signed off #Acute Microcytic Anemia #Acute Blood Loss-resolved #Acute GI Bleed-resolved - s/p a total of 7units of PRBCs since admit - 11/18 EGD- Large cratered ulcer in the posterior duodenal bulb about 2 cm in diameter. Visible vessel present. Mild active oozing from the ulcer bed. A total of 3 injections were performed around the ulcer for a total of 2.5 cc of dilute epinephrine and hemostasis was obtained.--> See full report - GI signed off - Stool occult still positive - H&H stable - Continue PPI and Carafate - Continue to trend CBC - Transfuse for H&H less than 7 - Hold AC for now #Hyponatremia #Hypokalemia - Gentle diurese - Strict intake and output - Continue to monitor and replace electrolytes as needed - Trend BMP,mag, & phosp #Urinary Retention-resolved - Sánchez reinserted on 11/19 for retention - Sánchez D/sara, patient is voiding - Bladder scan with no residual #Acute DVT in RLE - BLE doppler + Acute DVT in the right external iliac vein, common femoral vein, and superior aspect of femoral vein - Was on Therapeutic Lovenox- held to due GI Bleed - 11/17 s/p IVC filter placement by Vascular Surg #Agitation/Anxiety #Chronic Pain #Acute Encephalopathy-Resolved - Awake and following commands - Continue Buspar and seroquel - PRN Xanax for anxiety - CT head and EEG noted - Neurology consulted - PRN analgesia for pain management #Transaminitis/Shock Liver - Probably due to bacteria/spetic shock - Continue to Trend LFTs #Endo: h/o DM and hypothyroidism - Continue home Synthroid - Accu-Cheks every 6hrs - Avoid hypoglycemia The high probability of a clinically significant, sudden or life threatening deterioration of the [multi] system(s) required my full and direct attention, intervention and personal management. The aggregate critical care time was [60] minutes. This time is in addition to time spent performing reported procedures but includes the following: [x] Data Review and interpretation [x] Patient assessment and monitoring of vital signs [x] Documentation [x] Medication orders and management Disposition Plan: ICU Total Time Spent with Patient (Minutes): 60 History Interval history: Patient seen and examined at the bedside. Remains stable on the vent, AAO, following commands. Tolerating PST this am. [facility] overnight Hospitalist Physical - Constitutional Vitals: Temp Pulse Resp BP Pulse Ox 99.5 F 81 17 130/56 97 01/01/22 04:00 01/01/22 10:00 01/01/22 10:00 01/01/22 10:00 01/01/22 10:00 General appearance: Present: no acute distress, other (Trach and on the vent) - EENT Eyes: Present: PERRL ENT: other (HUSLIA) - Neck Neck: Present: normal ROM - Respiratory Respiratory effort: normal Respiratory: bilateral: rhonchi - Cardiovascular Rhythm: regular Heart Sounds: Present: S1 & S2 - Extremities Extremities: no ischemia, pulses intact, pulses symmetrical Extremity abnormal: edema - Peripheral Assessment Generalized Edema Type: Pitting Edema Degree: 3+ Capillary Refill: < 3 seconds Skin Temperature: Warm Peripheral Pulses: within normal limits - Abdominal General gastrointestinal: soft, non-distended, normal bowel sounds - Integumentary Integumentary: Present: warm, dry - Psychiatric Psychiatric: appropriate mood/affect, cooperative - Neurologic Neurologic: moves all extremities - Allied Health Allied health notes reviewed: nursing HEART Score - HEART Score Troponin: Troponin T 0.045 ng/mL (0.00-0.029) H 11/29/21 20:15 Results - Labs CBC & Chem 7: 01/01/22 04:31 01/01/22 04:31 Labs: Laboratory Last Values WBC 9.0 K/mm3 (4.5-11.0) 01/01/22 04:31 RBC 2.83 M/mm3 (3.65-5.03) L 01/01/22 04:31 Hgb 7.7 gm/dl (10.1-14.3) L 01/01/22 04:31 Hct 23.2 % (30.3-42.9) L 01/01/22 04:31 MCV 82 fl (79-97) 01/01/22 04:31 MCH 27 pg (28-32) L 01/01/22 04:31 MCHC 33 % (30-34) 01/01/22 04:31 RDW 18.3 % (13.2-15.2) H 01/01/22 04:31 Plt Count 208 K/mm3 (140-440) 01/01/22 04:31 Add Manual Diff Complete 12/20/21 04:54 Total Counted 100 12/20/21 04:54 Seg Neutrophils % Stamp Pad Maker 11/06/21 15:50 Seg Neuts % (Manual) 88.0 % (40.0-70.0) H 12/20/21 04:54 Band Neutrophils % 0 % 12/20/21 04:54 Lymphocytes % (Manual) 6.0 % (13.4-35.0) L 12/20/21 04:54 Reactive Lymphs % (Man) 0 % 12/20/21 04:54 Monocytes % (Manual) 5.0 % (0.0-7.3) 12/20/21 04:54 Eosinophils % (Manual) 1.0 % (0.0-4.3) 12/20/21 04:54 Basophils % (Manual) 0 % (0.0-1.8) 12/20/21 04:54 Metamyelocytes % 0 % 12/20/21 04:54 Myelocytes % 0 % 12/20/21 04:54 Promyelocytes % 0 % 12/20/21 04:54 Blast Cells % 0 % 12/20/21 04:54 Nucleated RBC % Not Reportable 12/20/21 04:54 Seg Neutrophils # Man 10.8 K/mm3 (1.8-7.7) H 12/20/21 04:54 Band Neutrophils # 0.0 K/mm3 12/20/21 04:54 Lymphocytes # (Manual) 0.7 K/mm3 (1.2-5.4) L 12/20/21 04:54 Abs React Lymphs (Man) 0.0 K/mm3 12/20/21 04:54 Monocytes # (Manual) 0.6 K/mm3 (0.0-0.8) 12/20/21 04:54 Eosinophils # (Manual) 0.1 K/mm3 (0.0-0.4) 12/20/21 04:54 Basophils # (Manual) 0.0 K/mm3 (0.0-0.1) 12/20/21 04:54 Metamyelocytes # 0.0 K/mm3 12/20/21 04:54 Myelocytes # 0.0 K/mm3 12/20/21 04:54 Promyelocytes # 0.0 K/mm3 12/20/21 04:54 Blast Cells # 0.0 K/mm3 12/20/21 04:54 WBC Morphology Not Reportable 12/20/21 04:54 Hypersegmented Neuts Not Reportable 12/20/21 04:54 Hyposegmented Neuts Not Reportable 12/20/21 04:54 Hypogranular Neuts Not Reportable 12/20/21 04:54 Smudge Cells Not Reportable 12/20/21 04:54 Toxic Granulation Not Reportable 12/20/21 04:54 Toxic Vacuolation Not Reportable 12/20/21 04:54 Dohle Bodies Not Reportable 12/20/21 04:54 Pelger-Huet Anomaly Not Reportable 12/20/21 04:54 Irina Rods Not Reportable 12/20/21 04:54 Platelet Estimate Consistent w auto 12/20/21 04:54 Clumped Platelets Not Reportable 12/20/21 04:54 Plt Clumps, EDTA Not Reportable 12/20/21 04:54 Large Platelets Not Reportable 12/20/21 04:54 Giant Platelets Not Reportable 12/20/21 04:54 Platelet Satelliting Not Reportable 12/20/21 04:54 Plt Morphology Comment Not Reportable 12/20/21 04:54 RBC Morphology Not Reportable 12/20/21 04:54 Dimorphic RBCs Not Reportable 12/20/21 04:54 Polychromasia Not Reportable 12/20/21 04:54 Hypochromasia Not Reportable 12/20/21 04:54 Poikilocytosis Not Reportable 12/20/21 04:54 Anisocytosis 1+ 12/20/21 04:54 Microcytosis Not Reportable 12/20/21 04:54 Macrocytosis Not Reportable 12/20/21 04:54 Spherocytes Not Reportable 12/20/21 04:54 Pappenheimer Bodies Not Reportable 12/20/21 04:54 Sickle Cells Not Reportable 12/20/21 04:54 Target Cells Not Reportable 12/20/21 04:54 Tear Drop Cells Not Reportable 12/20/21 04:54 Ovalocytes Not Reportable 12/20/21 04:54 Helmet Cells Not Reportable 12/20/21 04:54 [place] Bodies Not Reportable 12/20/21 04:54 [place] Rings Not Reportable 12/20/21 04:54 [place] Cells Not Reportable 12/20/21 04:54 Bite Cells Not Reportable 12/20/21 04:54 Crenated Cell Not Reportable 12/20/21 04:54 Elliptocytes Not Reportable 12/20/21 04:54 Acanthocytes (Spur) Not Reportable 12/20/21 04:54 Rouleaux Not Reportable 12/20/21 04:54 Hemoglobin C Crystals Not Reportable 12/20/21 04:54 Schistocytes Not Reportable 12/20/21 04:54 Malaria parasites Not Reportable 12/20/21 04:54 [place] Bodies Not Reportable 12/20/21 04:54 Hem Pathologist Commnt No 12/20/21 04:54 PT 16.9 Sec. (12.2-14.9) H 11/26/21 05:00 INR 1.24 (0.87-1.13) H 11/26/21 05:00 APTT 29.2 Sec. (24.2-36.6) 11/26/21 05:00 D-Dimer 2655.00 ng/mlDDU (0-234) H 11/11/21 04:28 ABG pH 7.479 pH Units (7.350-7.450) H 12/16/21 20:52 ABG pCO2 37.5 mm Hg 12/16/21 20:52 ABG pO2 79.3 mm Hg (80.0-90.0) L 12/16/21 20:52 ABG HCO3 27.3 mmol/L (20.0-26.0) H 12/16/21 20:52 ABG O2 Saturation 97.0 % (95.0-99.0) 12/16/21 20:52 ABG O2 Content 12.3 (0.0-44) 12/16/21 20:52 ABG Base Excess 3.6 mmol/L (-2.0-3.0) H 12/16/21 20:52 ABG Hemoglobin 9.1 gm/dl (12.0-16.0) L 12/16/21 20:52 ABG Carboxyhemoglobin 1.6 % (0.0-5.0) 12/16/21 20:52 ABG Methemoglobin 0.5 % (0.0-1.5) 12/16/21 20:52 Oxyhemoglobin 94.9 % (95.0-99.0) L 12/16/21 20:52 FiO2 30 % 12/16/21 20:52 Sodium 135 mmol/L (137-145) L 01/01/22 04:31 Potassium 3.9 mmol/L (3.6-5.0) 01/01/22 04:31 Chloride 97.7 mmol/L (98-107) L 01/01/22 04:31 Carbon Dioxide 27 mmol/L (22-30) 01/01/22 04:31 Anion Gap 14 mmol/L 01/01/22 04:31 BUN 21 mg/dL (7-17) H 01/01/22 04:31 Creatinine 0.5 mg/dL (0.6-1.2) L 01/01/22 04:31 Estimated GFR > 60 ml/min 01/01/22 04:31 BUN/Creatinine Ratio 42 % 01/01/22 04:31 Glucose 127 mg/dL (65-100) H 01/01/22 04:31 POC Glucose 124 mg/dL (70-105) H 01/01/22 05:24 Lactic Acid 3.70 mmol/L (0.7-2.0) H* 11/03/21 22:32 Calcium 8.0 mg/dL (8.4-10.2) L 01/01/22 04:31 Phosphorus 3.20 mg/dL (2.5-4.5) 12/31/21 04:00 Magnesium 1.90 mg/dL (1.7-2.3) 12/31/21 04:00 Ferritin 52.6 ng/mL (10.0-200.0) 11/05/21 06:11 Total Bilirubin 0.50 mg/dL (0.1-1.2) 11/17/21 05:56 Direct Bilirubin < 0.2 mg/dL (0-0.2) 11/11/21 04:28 Indirect Bilirubin 0.1 mg/dL 11/11/21 04:28 AST 36 units/L (5-40) 11/17/21 05:56 ALT 47 units/L (7-56) 11/17/21 05:56 Alkaline Phosphatase 107 units/L (35-129) 11/17/21 05:56 Ammonia 42.0 umol/L (25-60) 11/10/21 14:08 Lactate Dehydrogenase 187 units/L (91-180) H 11/05/21 06:11 Troponin T 0.045 ng/mL (0.00-0.029) H 11/29/21 20:15 C-Reactive Protein 22.20 mg/dL (0.00-1.30) H 11/05/21 06:11 NT-Pro-B Natriuret Pep 7895 pg/mL (0-900) H 11/03/21 22:32 Total Protein 5.1 g/dL (6.3-8.2) L 11/17/21 05:56 Albumin 2.2 g/dL (3.9-5) L 11/17/21 05:56 Albumin/Globulin Ratio 0.8 % 11/17/21 05:56 Triglycerides 59 mg/dL (2-149) 11/29/21 20:15 Cholesterol 74 mg/dL (50-199) 11/29/21 20:15 LDL Cholesterol Direct 25 mg/dL (50-130) L 11/29/21 20:15 HDL Cholesterol 41 mg/dL (40-59) 11/29/21 20:15 Cholesterol/HDL Ratio 1.80 % 11/29/21 20:15 Vitamin B12 1823 pg/mL (211-911) H 11/10/21 14:08 TSH 1.510 mlU/mL (0.270-4.200) 11/10/21 14:08 Urine Color Yellow (Yellow) 11/11/21 09:00 Urine Turbidity Slightly-cloudy (Clear) 11/11/21 09:00 Urine pH 5.0 (5.0-7.0) 11/11/21 09:00 Ur Specific [place] 1.009 (1.003-1.030) 11/11/21 09:00 Urine Protein <15 mg/dl mg/dL (Negative) 11/11/21 09:00 Urine Glucose (UA) Neg mg/dL (Negative) 11/11/21 09:00 Urine Ketones Neg mg/dL (Negative) 11/11/21 09:00 Urine Blood Mod (Negative) 11/11/21 09:00 Urine Nitrite Neg (Negative) 11/11/21 09:00 Urine Bilirubin Neg (Negative) 11/11/21 09:00 Urine Urobilinogen < 2.0 mg/dL (<2.0) 11/11/21 09:00 Ur Leukocyte Esterase Neg (Negative) 11/11/21 09:00 Urine WBC (Auto) < 1.0 /HPF (0.0-6.0) 11/11/21 09:00 Urine RBC (Auto) < 1.0 /HPF (0.0-6.0) 11/11/21 09:00 Vancomycin Trough 14.4 ug/mL (5.0-20.0) 12/26/21 Unknown Coronavirus (PCR) Negative (Negative) 11/10/21 08:30 Blood Type O POSITIVE 12/14/21 10:30 Antibody Screen Negative 12/14/21 10:30 Crossmatch See Detail 12/14/21 10:30 Sánchez/IV: Voiding Method External Female Catheter Active Medications - Current Medications Current Medications: Generic Name Dose Route Start Last Admin Trade Name Freq PRN Reason Stop Dose Admin Acetaminophen 650 mg 12/14/21 04:12 12/16/21 13:34 Acetaminophen 325 Mg/10.15 Ml Oral Liqd Unit Dose FEEDTUBE 650 mg Q6H PRN Administration Non Cardiac Pain or Temp>100.5 Hydrocodone Bitart/Acetaminophen 1 each 11/21/21 10:00 01/01/22 09:04 Hydrocodone/Acetaminophen 10-325mg Tab FEEDTUBE 1 each TID YOSSI Administration Alprazolam 0.25 mg 12/30/21 09:00 12/31/21 20:53 Alprazolam 0.25 Mg Tab FEEDTUBE 0.25 mg Q8H PRN Administration Agitation Lipase/Protease/Amylase 1 each 11/08/21 11:09 Lipase 10,500/Protease 25,000/Amylase 43,750 (Units) Dr Lema FEEDTUBE PRN PRN For Clogged Feeding Tube Buspirone HCl 7.5 mg 12/30/21 10:00 01/01/22 09:04 Buspirone 5 Mg Tab FEEDTUBE 7.5 mg BID YOSSI Administration Dextrose 0 ml 11/10/21 10:52 12/30/21 00:48 Dextrose 10% *Hypoglycemia IV 50 ml PRN PRN Administration Hypoglycemia Docusate Sodium 100 mg 12/30/21 10:00 01/01/22 09:05 Docusate Sodium 100 Mg/10 Ml Oral Liqd FEEDTUBE 100 mg BID YOSSI Administration Gabapentin 100 mg 12/30/21 10:00 01/01/22 09:04 Gabapentin 100 Mg Cap FEEDTUBE 100 mg QDAY YOSSI Administration Hydromorphone HCl 0.5 mg 12/08/21 20:06 12/29/21 14:45 Hydromorphone 1 Mg/1 Ml Inj IV 0.5 mg Q3H PRN Administration Pain, Moderate (4-6) Hydrophilic Ointment 1 applic 11/06/21 04:02 Lip Therapy Vaseline TP Q2HR PRN Dry Lips Vancomycin HCl 1 gm in 250 mls @ 166.667 mls/hr 12/29/21 17:00 12/31/21 19:09 Vancomycin/Ns 1 Gm/250 Ml IV 01/26/22 18:29 166.667 mls/hr Q24H YOSSI Administration Protocol Lansoprazole 30 mg 11/24/21 22:00 01/01/22 09:04 Lansoprazole 30 Mg Solutab FEEDTUBE 30 mg BID YOSSI Administration Levothyroxine Sodium 125 mcg 12/31/21 06:00 01/01/22 05:41 Levothyroxine 125 Mcg Tab FEEDTUBE 125 mcg DAILY@0600 [facility] Administration Melatonin 5 mg 12/05/21 22:00 12/31/21 21:02 Melatonin 5 Mg Tab PO 5 mg QHS YOSSI Administration Metoclopramide HCl 5 mg 12/27/21 14:00 01/01/22 05:41 Metoclopramide 10 Mg/2 Ml Inj IV 5 mg Q8H YOSSI Administration Metoprolol Tartrate 6.25 mg 12/30/21 10:00 01/01/22 09:05 Metoprolol Tartrate 25 Mg Tab FEEDTUBE 6.25 mg BID YOSSI Administration Midodrine 5 mg 12/30/21 09:00 01/01/22 09:03 Midodrine 5 Mg Tab FEEDTUBE Not Given TID@0800,1200,1600 [facility] Multi-Ingred Cream/Lotion/Oil/Oint 1 applic 11/06/21 04:02 Mineral Oil/Petrolatum, White Ophth Oint 3.5 Gm OU Q4HR PRN Dry Eye(s) Ondansetron HCl 4 mg 12/05/21 10:00 12/30/21 21:54 Ondansetron 4 Mg/2 Ml Inj IV 4 mg Q8H PRN Administration Nausea And Vomiting Polyethylene Glycol 17 gm 12/30/21 10:00 01/01/22 09:06 Polyethylene Glycol 3350 17 Gm Powder FEEDTUBE Not Given QDAY YOSSI Pravastatin Sodium 20 mg 12/30/21 22:00 12/31/21 21:02 Pravastatin 20 Mg Tab FEEDTUBE 20 mg QHS YOSSI Administration Quetiapine Fumarate 25 mg 12/30/21 10:00 01/01/22 09:04 Quetiapine 25 Mg Tab FEEDTUBE 25 mg QAM YOSSI Administration Quetiapine Fumarate 50 mg 12/30/21 22:00 12/31/21 21:03 Quetiapine 25 Mg Tab FEEDTUBE 50 mg QHS YOSSI Administration Senna 17.6 mg 12/29/21 11:00 01/01/22 09:06 Sennosides Oral Liqd 8.8 Mg/5 Ml Oral Liqd FEEDTUBE Not Given Q12HR YOSSI Simple Syrup 15 ml 11/08/21 11:09 Simple Syrup 15 Ml FEEDTUBE PRN PRN Hypoglycemia Simple Syrup 30 ml 11/08/21 11:09 Simple Syrup 15 Ml FEEDTUBE PRN PRN Hypoglycemia Sodium Bicarbonate 325 mg 11/08/21 11:09 Sodium Bicarbonate 325 Mg Tab FEEDTUBE PRN PRN For Clogged Feeding Tube Sodium Chloride 10 ml 11/04/21 10:00 01/01/22 09:06 Sodium Chloride 0.9% 10 Ml Flush Syringe IV 10 ml BID YOSSI Administration Sodium Chloride 10 ml 11/04/21 02:03 Sodium Chloride 0.9% 10 Ml Flush Syringe IV PRN PRN LINE FLUSH Spironolactone 25 mg 12/30/21 10:00 01/01/22 09:05 Spironolactone 25 Mg Tab FEEDTUBE 25 mg QDAY YOSSI Administration Sucralfate 1 gm 12/30/21 12:00 01/01/22 05:41 Sucralfate 1 Gm/10 Ml Oral Liqd FEEDTUBE 1 gm Q6HR YOSSI Administration Trazodone HCl 50 mg 12/04/21 22:00 12/31/21 21:02 Trazodone 50 Mg Tab PO 50 mg QHS YOSSI Administration Nutrition/Malnutrition Assess - Dietary Evaluation Nutrition/Malnutrition Findings: Nutrition Notes Start: 11/04/21 17:16 Freq: Status: Active Protocol: Document 12/26/21 16:55 YOVANI (Rec: 12/26/21 16:56 [facility] [id number]) Nutrition Notes Initial or Follow up Brief Note Current Diet TF - Vital AF 1.2 at 45ml/hr Subjective/Other Information Per RN, pt tolerating TF at goal rate of 45ml/hr. Pt remains on vent support. Nutrition Intervention Follow-Up By: 01/02/22 Additional Comments F/U: stable TF, vent status, wt <LEAH ALFONSO E - Last Filed: 01/02/22 07:17> Assessment and Plan Assessment and plan: I saw and evaluated the patient. I agree with the findings and the plan of care as documented in the Nurse Practitioner's~note, with the following corrections and additions. Hospitalist Physical - Constitutional Vitals: Temp Pulse Resp BP Pulse Ox 98.7 F 67 14 118/50 100 01/02/22 07:16 01/02/22 06:00 01/02/22 06:00 01/02/22 06:00 01/02/22 06:00 HEART Score - HEART Score Troponin: Troponin T 0.045 ng/mL (0.00-0.029) H 11/29/21 20:15 Results - Labs CBC & Chem 7: 01/02/22 04:01 01/02/22 04:01 Labs: Laboratory Last Values WBC 8.1 K/mm3 (4.5-11.0) 01/02/22 04:01 RBC 2.57 M/mm3 (3.65-5.03) L 01/02/22 04:01 Hgb 7.1 gm/dl (10.1-14.3) L 01/02/22 04:01 Hct 21.5 % (30.3-42.9) L 01/02/22 04:01 MCV 84 fl (79-97) 01/02/22 04:01 MCH 28 pg (28-32) 01/02/22 04:01 MCHC 33 % (30-34) 01/02/22 04:01 RDW 18.1 % (13.2-15.2) H 01/02/22 04:01 Plt Count 163 K/mm3 (140-440) 01/02/22 04:01 Add Manual Diff Complete 12/20/21 04:54 Total Counted 100 12/20/21 04:54 Seg Neutrophils % Stamp Pad Maker 11/06/21 15:50 Seg Neuts % (Manual) 88.0 % (40.0-70.0) H 12/20/21 04:54 Band Neutrophils % 0 % 12/20/21 04:54 Lymphocytes % (Manual) 6.0 % (13.4-35.0) L 12/20/21 04:54 Reactive Lymphs % (Man) 0 % 12/20/21 04:54 Monocytes % (Manual) 5.0 % (0.0-7.3) 12/20/21 04:54 Eosinophils % (Manual) 1.0 % (0.0-4.3) 12/20/21 04:54 Basophils % (Manual) 0 % (0.0-1.8) 12/20/21 04:54 Metamyelocytes % 0 % 12/20/21 04:54 Myelocytes % 0 % 12/20/21 04:54 Promyelocytes % 0 % 12/20/21 04:54 Blast Cells % 0 % 12/20/21 04:54 Nucleated RBC % Not Reportable 12/20/21 04:54 Seg Neutrophils # Man 10.8 K/mm3 (1.8-7.7) H 12/20/21 04:54 Band Neutrophils # 0.0 K/mm3 12/20/21 04:54 Lymphocytes # (Manual) 0.7 K/mm3 (1.2-5.4) L 12/20/21 04:54 Abs React Lymphs (Man) 0.0 K/mm3 12/20/21 04:54 Monocytes # (Manual) 0.6 K/mm3 (0.0-0.8) 12/20/21 04:54 Eosinophils # (Manual) 0.1 K/mm3 (0.0-0.4) 12/20/21 04:54 Basophils # (Manual) 0.0 K/mm3 (0.0-0.1) 12/20/21 04:54 Metamyelocytes # 0.0 K/mm3 12/20/21 04:54 Myelocytes # 0.0 K/mm3 12/20/21 04:54 Promyelocytes # 0.0 K/mm3 12/20/21 04:54 Blast Cells # 0.0 K/mm3 12/20/21 04:54 WBC Morphology Not Reportable 12/20/21 04:54 Hypersegmented Neuts Not Reportable 12/20/21 04:54 Hyposegmented Neuts Not Reportable 12/20/21 04:54 Hypogranular Neuts Not Reportable 12/20/21 04:54 Smudge Cells Not Reportable 12/20/21 04:54 Toxic Granulation Not Reportable 12/20/21 04:54 Toxic Vacuolation Not Reportable 12/20/21 04:54 Dohle Bodies Not Reportable 12/20/21 04:54 Pelger-Huet Anomaly Not Reportable 12/20/21 04:54 Irina Rods Not Reportable 12/20/21 04:54 Platelet Estimate Consistent w auto 12/20/21 04:54 Clumped Platelets Not Reportable 12/20/21 04:54 Plt Clumps, EDTA Not Reportable 12/20/21 04:54 Large Platelets Not Reportable 12/20/21 04:54 Giant Platelets Not Reportable 12/20/21 04:54 Platelet Satelliting Not Reportable 12/20/21 04:54 Plt Morphology Comment Not Reportable 12/20/21 04:54 RBC Morphology Not Reportable 12/20/21 04:54 Dimorphic RBCs Not Reportable 12/20/21 04:54 Polychromasia Not Reportable 12/20/21 04:54 Hypochromasia Not Reportable 12/20/21 04:54 Poikilocytosis Not Reportable 12/20/21 04:54 Anisocytosis 1+ 12/20/21 04:54 Microcytosis Not Reportable 12/20/21 04:54 Macrocytosis Not Reportable 12/20/21 04:54 Spherocytes Not Reportable 12/20/21 04:54 Pappenheimer Bodies Not Reportable 12/20/21 04:54 Sickle Cells Not Reportable 12/20/21 04:54 Target Cells Not Reportable 12/20/21 04:54 Tear Drop Cells Not Reportable 12/20/21 04:54 Ovalocytes Not Reportable 12/20/21 04:54 Helmet Cells Not Reportable 12/20/21 04:54 [place] Bodies Not Reportable 12/20/21 04:54 [place] Rings Not Reportable 12/20/21 04:54 [place] Cells Not Reportable 12/20/21 04:54 Bite Cells Not Reportable 12/20/21 04:54 Crenated Cell Not Reportable 12/20/21 04:54 Elliptocytes Not Reportable 12/20/21 04:54 Acanthocytes (Spur) Not Reportable 12/20/21 04:54 Rouleaux Not Reportable 12/20/21 04:54 Hemoglobin C Crystals Not Reportable 12/20/21 04:54 Schistocytes Not Reportable 12/20/21 04:54 Malaria parasites Not Reportable 12/20/21 04:54 [place] Bodies Not Reportable 12/20/21 04:54 Hem Pathologist Commnt No 12/20/21 04:54 PT 16.9 Sec. (12.2-14.9) H 11/26/21 05:00 INR 1.24 (0.87-1.13) H 11/26/21 05:00 APTT 29.2 Sec. (24.2-36.6) 11/26/21 05:00 D-Dimer 2655.00 ng/mlDDU (0-234) H 11/11/21 04:28 ABG pH 7.479 pH Units (7.350-7.450) H 12/16/21 20:52 ABG pCO2 37.5 mm Hg 12/16/21 20:52 ABG pO2 79.3 mm Hg (80.0-90.0) L 12/16/21 20:52 ABG HCO3 27.3 mmol/L (20.0-26.0) H 12/16/21 20:52 ABG O2 Saturation 97.0 % (95.0-99.0) 12/16/21 20:52 ABG O2 Content 12.3 (0.0-44) 12/16/21 20:52 ABG Base Excess 3.6 mmol/L (-2.0-3.0) H 12/16/21 20:52 ABG Hemoglobin 9.1 gm/dl (12.0-16.0) L 12/16/21 20:52 ABG Carboxyhemoglobin 1.6 % (0.0-5.0) 12/16/21 20:52 ABG Methemoglobin 0.5 % (0.0-1.5) 12/16/21 20:52 Oxyhemoglobin 94.9 % (95.0-99.0) L 12/16/21 20:52 FiO2 30 % 12/16/21 20:52 Sodium 131 mmol/L (137-145) L 01/02/22 04:01 Potassium 3.5 mmol/L (3.6-5.0) L 01/02/22 04:01 Chloride 94.8 mmol/L (98-107) L 01/02/22 04:01 Carbon Dioxide 28 mmol/L (22-30) 01/02/22 04:01 Anion Gap 12 mmol/L 01/02/22 04:01 BUN 27 mg/dL (7-17) H 01/02/22 04:01 Creatinine 0.7 mg/dL (0.6-1.2) 01/02/22 04:01 Estimated GFR > 60 ml/min 01/02/22 04:01 BUN/Creatinine Ratio 39 % 01/02/22 04:01 Glucose 121 mg/dL (65-100) H 01/02/22 04:01 POC Glucose 124 mg/dL (70-105) H 01/02/22 05:30 Lactic Acid 3.70 mmol/L (0.7-2.0) H* 11/03/21 22:32 Calcium 8.4 mg/dL (8.4-10.2) 01/02/22 04:01 Phosphorus 3.90 mg/dL (2.5-4.5) 01/02/22 04:01 Magnesium 1.80 mg/dL (1.7-2.3) 01/02/22 04:01 Ferritin 52.6 ng/mL (10.0-200.0) 11/05/21 06:11 Total Bilirubin 0.50 mg/dL (0.1-1.2) 11/17/21 05:56 Direct Bilirubin < 0.2 mg/dL (0-0.2) 11/11/21 04:28 Indirect Bilirubin 0.1 mg/dL 11/11/21 04:28 AST 36 units/L (5-40) 11/17/21 05:56 ALT 47 units/L (7-56) 11/17/21 05:56 Alkaline Phosphatase 107 units/L (35-129) 11/17/21 05:56 Ammonia 42.0 umol/L (25-60) 11/10/21 14:08 Lactate Dehydrogenase 187 units/L (91-180) H 11/05/21 06:11 Troponin T 0.045 ng/mL (0.00-0.029) H 11/29/21 20:15 C-Reactive Protein 22.20 mg/dL (0.00-1.30) H 11/05/21 06:11 NT-Pro-B Natriuret Pep 7895 pg/mL (0-900) H 11/03/21 22:32 Total Protein 5.1 g/dL (6.3-8.2) L 11/17/21 05:56 Albumin 2.2 g/dL (3.9-5) L 11/17/21 05:56 Albumin/Globulin Ratio 0.8 % 11/17/21 05:56 Triglycerides 59 mg/dL (2-149) 11/29/21 20:15 Cholesterol 74 mg/dL (50-199) 11/29/21 20:15 LDL Cholesterol Direct 25 mg/dL (50-130) L 11/29/21 20:15 HDL Cholesterol 41 mg/dL (40-59) 11/29/21 20:15 Cholesterol/HDL Ratio 1.80 % 11/29/21 20:15 Vitamin B12 1823 pg/mL (211-911) H 11/10/21 14:08 TSH 1.510 mlU/mL (0.270-4.200) 11/10/21 14:08 Urine Color Yellow (Yellow) 11/11/21 09:00 Urine Turbidity Slightly-cloudy (Clear) 11/11/21 09:00 Urine pH 5.0 (5.0-7.0) 11/11/21 09:00 Ur Specific [place] 1.009 (1.003-1.030) 11/11/21 09:00 Urine Protein <15 mg/dl mg/dL (Negative) 11/11/21 09:00 Urine Glucose (UA) Neg mg/dL (Negative) 11/11/21 09:00 Urine Ketones Neg mg/dL (Negative) 11/11/21 09:00 Urine Blood Mod (Negative) 11/11/21 09:00 Urine Nitrite Neg (Negative) 11/11/21 09:00 Urine Bilirubin Neg (Negative) 11/11/21 09:00 Urine Urobilinogen < 2.0 mg/dL (<2.0) 01/25/22 09:00 Ur Leukocyte Esterase Neg (Negative) 11/11/21 09:00 Urine WBC (Auto) < 1.0 /HPF (0.0-6.0) 11/11/21 09:00 Urine RBC (Auto) < 1.0 /HPF (0.0-6.0) 11/11/21 09:00 Vancomycin Trough 14.4 ug/mL (5.0-20.0) 12/26/21 Unknown Coronavirus (PCR) Negative (Negative) 11/10/21 08:30 Blood Type O POSITIVE 12/14/21 10:30 Antibody Screen Negative 12/14/21 10:30 Crossmatch See Detail 12/14/21 10:30 Sánchez/IV: Voiding Method External Female Catheter Active Medications - Current Medications Current Medications: Generic Name Dose Route Start Last Admin Trade Name Freq PRN Reason Stop Dose Admin Acetaminophen 650 mg 12/14/21 04:12 01/01/22 11:45 Acetaminophen 325 Mg/10.15 Ml Oral Liqd Unit Dose FEEDTUBE 650 mg Q6H PRN Administration Non Cardiac Pain or Temp>100.5 Hydrocodone Bitart/Acetaminophen 1 each 11/21/21 10:00 01/01/22 21:00 Hydrocodone/Acetaminophen 10-325mg Tab FEEDTUBE 1 each TID YOSSI Administration Alprazolam 0.25 mg 12/30/21 09:00 12/31/21 20:53 Alprazolam 0.25 Mg Tab FEEDTUBE 0.25 mg Q8H PRN Administration Agitation Lipase/Protease/Amylase 1 each 11/08/21 11:09 Lipase 10,500/Protease 25,000/Amylase 43,750 (Units) Dr Lema FEEDTUBE PRN PRN For Clogged Feeding Tube Buspirone HCl 7.5 mg 12/30/21 10:00 01/01/22 21:00 Buspirone 5 Mg Tab FEEDTUBE 7.5 mg BID YOSSI Administration Dextrose 0 ml 11/10/21 10:52 12/30/21 00:48 Dextrose 10% *Hypoglycemia IV 50 ml PRN PRN Administration Hypoglycemia Docusate Sodium 100 mg 12/30/21 10:00 01/01/22 21:01 Docusate Sodium 100 Mg/10 Ml Oral Liqd FEEDTUBE 100 mg BID YOSSI Administration Gabapentin 100 mg 12/30/21 10:00 01/01/22 09:04 Gabapentin 100 Mg Cap FEEDTUBE 100 mg QDAY YOSSI Administration Hydromorphone HCl 0.5 mg 12/08/21 20:06 12/29/21 14:45 Hydromorphone 1 Mg/1 Ml Inj IV 0.5 mg Q3H PRN Administration Pain, Moderate (4-6) Hydrophilic Ointment 1 applic 11/06/21 04:02 Lip Therapy Vaseline TP Q2HR PRN Dry Lips Vancomycin HCl 1 gm in 250 mls @ 166.667 mls/hr 12/29/21 17:00 01/01/22 18:18 Vancomycin/Ns 1 Gm/250 Ml IV 01/26/22 18:29 166.667 mls/hr Q24H YOSSI Administration Protocol Lansoprazole 30 mg 11/24/21 22:00 01/01/22 21:02 Lansoprazole 30 Mg Solutab FEEDTUBE 30 mg BID YOSSI Administration Levothyroxine Sodium 125 mcg 12/31/21 06:00 01/02/22 05:56 Levothyroxine 125 Mcg Tab FEEDTUBE 125 mcg DAILY@0600 YOSSI Administration Melatonin 5 mg 12/05/21 22:00 01/01/22 21:02 Melatonin 5 Mg Tab PO 5 mg QHS YOSSI Administration Metoclopramide HCl 5 mg 12/27/21 14:00 01/02/22 05:56 Metoclopramide 10 Mg/2 Ml Inj IV 5 mg Q8H YOSSI Administration Metoprolol Tartrate 6.25 mg 12/30/21 10:00 01/01/22 21:03 Metoprolol Tartrate 25 Mg Tab FEEDTUBE 6.25 mg BID YOSSI Administration Midodrine 5 mg 12/30/21 09:00 01/01/22 15:20 Midodrine 5 Mg Tab FEEDTUBE 5 mg TID@0800,1200,1600 YOSSI Administration Multi-Ingred Cream/Lotion/Oil/Oint 1 applic 11/06/21 04:02 Mineral Oil/Petrolatum, White Ophth Oint 3.5 Gm OU Q4HR PRN Dry Eye(s) Ondansetron HCl 4 mg 12/05/21 10:00 12/30/21 21:54 Ondansetron 4 Mg/2 Ml Inj IV 4 mg Q8H PRN Administration Nausea And Vomiting Polyethylene Glycol 17 gm 12/30/21 10:00 01/01/22 09:06 Polyethylene Glycol 3350 17 Gm Powder FEEDTUBE Not Given QDAY YOSSI Pravastatin Sodium 20 mg 12/30/21 22:00 01/01/22 21:00 Pravastatin 20 Mg Tab FEEDTUBE 20 mg QHS YOSSI Administration Quetiapine Fumarate 25 mg 12/30/21 10:00 01/01/22 09:04 Quetiapine 25 Mg Tab FEEDTUBE 25 mg QAM YOSSI Administration Quetiapine Fumarate 50 mg 12/30/21 22:00 01/01/22 21:04 Quetiapine 25 Mg Tab FEEDTUBE 50 mg QHS YOSSI Administration Senna 17.6 mg 12/29/21 11:00 01/01/22 21:01 Sennosides Oral Liqd 8.8 Mg/5 Ml Oral Liqd FEEDTUBE 17.6 mg Q12HR YOSSI Administration Simple Syrup 15 ml 11/08/21 11:09 Simple Syrup 15 Ml FEEDTUBE PRN PRN Hypoglycemia Simple Syrup 30 ml 11/08/21 11:09 Simple Syrup 15 Ml FEEDTUBE PRN PRN Hypoglycemia Sodium Bicarbonate 325 mg 11/08/21 11:09 Sodium Bicarbonate 325 Mg Tab FEEDTUBE PRN PRN For Clogged Feeding Tube Sodium Chloride 10 ml 11/04/21 10:00 01/01/22 21:01 Sodium Chloride 0.9% 10 Ml Flush Syringe IV 10 ml BID YOSSI Administration Sodium Chloride 10 ml 11/04/21 02:03 Sodium Chloride 0.9% 10 Ml Flush Syringe IV PRN PRN LINE FLUSH Spironolactone 25 mg 12/30/21 10:00 01/01/22 09:05 Spironolactone 25 Mg Tab FEEDTUBE 25 mg QDAY YOSSI Administration Sucralfate 1 gm 12/30/21 12:00 01/02/22 05:57 Sucralfate 1 Gm/10 Ml Oral Liqd FEEDTUBE 1 gm Q6HR YOSSI Administration Trazodone HCl 50 mg 12/04/21 22:00 01/01/22 21:09 Trazodone 50 Mg Tab PO 50 mg QHS YOSSI Administration Nutrition/Malnutrition Assess - Dietary Evaluation Nutrition/Malnutrition Findings: Nutrition Notes Start: 11/04/21 17:16 Freq: Status: Active Protocol: Document 12/26/21 16:55 VISHALARMEN (Rec: 12/26/21 16:56 YOVANI [id number]) Nutrition Notes Initial or Follow up Brief Note Current Diet TF - Vital AF 1.2 at 45ml/hr Subjective/Other Information Per RN, pt tolerating TF at goal rate of 45ml/hr. Pt remains on vent support. Nutrition Intervention Follow-Up By: 01/02/22 Additional Comments F/U: stable TF, vent status, wt
[2022-01-01] MEDS: ACETAMINOPHEN 325 MG/10.15 ML ORAL LIQD UNIT DOSE FEEDTUBE PRN (11:45)
--- NOTE | 2022-01-01 16:33 | Progress Note ---
Assessment and Plan Severe Sepsis POA vs septic shock- 11/03/2021 blood culture: 2 sets positive for GPC -Repeat cultures positive for MRSA Acute respiratory failure with hypoxia, s/p trach on MVS Acute microcytic anemia Bilateral pneumonia Left pleural effusion Cardiomyopathy EF 30-35% Moderate pulmonary HTN RVSP 49 Acute DVT s/p IVC Anemia Mild hyponatremia Daily SBTs as tolerated- titrate PS to maintain tidal volumes at least 300 Continue Spironolactone to help with recurrent edema Diuretic therapy as tolerated by renal function and hemodynamics. Monitor renal function Continue to monitor hemoglobin and transfuse as clinically indicated to keep HgB>7g/dL Continue to optimize enteric nutritional support Maintain sleep-wake cycle PT/OT, increase activity - continue to titrate supplemental oxygen to keep SPO2 88-90% - VAP bundle addressed, aspiration precautions, HOB >40 - continue bronchodilators with pulmonary hygiene per RT - continue avoid nephrotoxins, renally dose all medications - Accuchecks with glycemic control per SSI (While critically ill target blood glucose of 140-180 mg/dL; avoid hypoglycemia) - continue to avoid benzodiazepines, reduce the possibility of delirium -trend temperature curve, trend WCC, - Maintenance of sleep-wake cycle, avoid delirium -Stress ulcer prophylaxis (Lansoprazole) -VTE prophyalxis- s/p IVC filter. No anticoagulation 11/18 EGD- Large cratered ulcer in the posterior duodenal bulb about 2 cm in diameter.Visible vessel present. Mild active oozing from the ulcer bed. A total of 3 injections were performed around the ulcer for a total of 2.5 cc of dilute epinephrine and hemostasis was obtained. -mobility, off loading and frequent turning to prevent pressure ulcer -continue with enteric nutritional support via PEG,at goal rate - Continue to monitor hemodynamics closely - continue other care per attending / other consultants COVID SPECIFIC INTERVENTIONS - Negative CONDITION: FAIR PROGNOSIS: GUARDED CODE STATUS: FULL CODE The high probability of a clinically significant, sudden or life-threatening deterioration of the [respiratory, cardiovascular and hematologic] system(s) required my full and direct attention, intervention and personal management. The aggregate critical care time was [33] minutes without overlap. Time includes spent on; [x] Data Review and interpretation [x] Patient assessment and monitoring of vital signs [x] Documentation [x] Medication orders and management Subjective Date of service: 01/01/22 Principal diagnosis: Septic shock; AHRF; Anemia; Pneumonia; pleural effusion; HFrEF; Pulm HTN Interval history: Follow up fro acute hypoxemic resp failure s/p tracheostomy to MVS ; Septic and cardiogenic shock; severe anemia; Patient seen and examined. Vitals, labs, medications, chart and imaging reviewed. Discussed with respiratory and nursing care staff. On PSV, but is requiring a PS of 20 to generate adequate spontaneous tidal volumes Awake and alert, interactive- generalized edema Gentle diuresis- her systolic blood pressure is 90-100 Objective Vital Signs - 12hr 01/01/22 01/01/22 01/01/22 05:00 06:00 07:00 Temperature Pulse Rate 72 73 73 Pulse Rate [ From Monitor] Respiratory 14 13 14 Rate Blood Pressure 108/43 111/47 123/55 O2 Sat by Pulse 99 98 100 Oximetry O2 Sat by Pulse Oximetry [ Assessment] 01/01/22 01/01/22 01/01/22 08:00 08:45 09:00 Temperature 98.8 F Pulse Rate 75 91 H 89 Pulse Rate [ 75 From Monitor] Respiratory 14 24 26 H Rate Blood Pressure 123/55 122/72 122/72 O2 Sat by Pulse 85 95 100 Oximetry O2 Sat by Pulse 93 Oximetry [ Assessment] 01/01/22 01/01/22 01/01/22 09:05 10:00 11:00 Temperature Pulse Rate 88 81 82 Pulse Rate [ From Monitor] Respiratory 17 21 Rate Blood Pressure 129/71 130/56 127/49 O2 Sat by Pulse 97 100 Oximetry O2 Sat by Pulse Oximetry [ Assessment] 01/01/22 01/01/22 01/01/22 12:00 12:25 13:00 Temperature 99 F Pulse Rate 83 86 86 Pulse Rate [ 83 From Monitor] Respiratory 16 21 26 H Rate Blood Pressure 122/57 122/57 122/57 O2 Sat by Pulse 98 98 97 Oximetry O2 Sat by Pulse Oximetry [ Assessment] 01/01/22 01/01/22 01/01/22 14:00 15:00 15:57 Temperature Pulse Rate 85 79 78 Pulse Rate [ From Monitor] Respiratory 13 11 L Rate Blood Pressure 131/49 109/44 O2 Sat by Pulse 93 86 Oximetry O2 Sat by Pulse Oximetry [ Assessment] 01/01/22 16:15 Temperature Pulse Rate 81 Pulse Rate [ From Monitor] Respiratory 26 H Rate Blood Pressure 117/48 O2 Sat by Pulse 100 Oximetry O2 Sat by Pulse 100 Oximetry [ Assessment] Constitutional: alert, appears uncomfortable (restless really), other (trach to MVS, frail elderly woman with mildly increased respiratory effort at rest) Eyes: non-icteric ENT: oropharynx moist, other (+ Midline tracheostomy with minimal secretions) Neck: supple, no lymphadenopathy, no JVD Effort: mildly labored Ascultation: Bilateral: diminished breath sounds, rhonchi, other (Right chest tube) Percussion: Bilateral: not dull Cardiovascular: regular rate and rhythm, other (S1,S2) Gastrointestinal: normoactive bowel sounds, soft, non-tender, non-distended (protuberant) Integumentary: normal Extremities: no cyanosis, pink and warm, pulses normal, edema (upper etremities), anasarca Neurologic: non-focal exam (grossly), pupils equal and round, motor strength normal and Psychiatric: mood appropriate, affect normal CBC and BMP: 01/06/22 04:06 01/10/22 04:00 ABG, PT/INR, D-dimer: ABG ABG pH 7.479 pH Units (7.350-7.450) H 12/16/21 20:52 ABG pCO2 37.5 mm Hg 12/16/21 20:52 ABG pO2 79.3 mm Hg (80.0-90.0) L 12/16/21 20:52 ABG O2 Saturation 97.0 % (95.0-99.0) 12/16/21 20:52 PT/INR, D-dimer PT 16.9 Sec. (12.2-14.9) H 11/26/21 05:00 INR 1.24 (0.87-1.13) H 11/26/21 05:00 D-Dimer 2655.00 ng/mlDDU (0-234) H 11/11/21 04:28 Abnormal lab findings: Abnormal Labs 11/03/21 11/03/21 11/03/21 22:32 22:32 22:32 WBC 29.3 H RBC 2.93 L Hgb 6.1 L Hct 21.9 L MCV 75 L MCH 21 L MCHC 28 L RDW 19.7 H Plt Count Seg Neuts % (Manual) 97.0 H Lymphocytes % (Manual) 3.0 L Seg Neutrophils # Man 28.4 H Lymphocytes # (Manual) 0.9 L Monocytes # (Manual) PT 18.6 H INR 1.40 H D-Dimer ABG pH ABG pO2 ABG HCO3 ABG O2 Saturation ABG Base Excess ABG Hemoglobin Oxyhemoglobin Sodium Potassium Chloride Carbon Dioxide 20 L BUN 33 H Creatinine Glucose 119 H POC Glucose Lactic Acid Calcium 8.3 L Phosphorus Magnesium AST ALT Alkaline Phosphatase Lactate Dehydrogenase Troponin T 0.035 H C-Reactive Protein NT-Pro-B Natriuret Pep Total Protein Albumin LDL Cholesterol Direct 34 L Vitamin B12 Crossmatch 11/03/21 11/03/21 11/03/21 22:32 22:32 23:57 WBC RBC Hgb Hct MCV MCH MCHC RDW Plt Count Seg Neuts % (Manual) Lymphocytes % (Manual) Seg Neutrophils # Man Lymphocytes # (Manual) Monocytes # (Manual) PT INR D-Dimer ABG pH ABG pO2 ABG HCO3 ABG O2 Saturation ABG Base Excess ABG Hemoglobin Oxyhemoglobin Sodium Potassium Chloride Carbon Dioxide BUN Creatinine Glucose POC Glucose Lactic Acid 3.70 H* Calcium Phosphorus Magnesium AST ALT Alkaline Phosphatase 139 H Lactate Dehydrogenase Troponin T C-Reactive Protein NT-Pro-B Natriuret Pep 7895 H Total Protein Albumin 3.5 L LDL Cholesterol Direct Vitamin B12 Crossmatch See Detail 11/04/21 11/04/21 11/05/21 00:59 13:58 00:51 WBC 27.9 H RBC 3.28 L Hgb 7.3 L Hct 25.5 L MCV 78 L MCH 22 L MCHC 29 L RDW 19.1 H Plt Count Seg Neuts % (Manual) 96.0 H Lymphocytes % (Manual) 2.0 L Seg Neutrophils # Man 26.8 H Lymphocytes # (Manual) 0.6 L Monocytes # (Manual) PT INR D-Dimer ABG pH ABG pO2 ABG HCO3 ABG O2 Saturation ABG Base Excess ABG Hemoglobin Oxyhemoglobin Sodium Potassium Chloride Carbon Dioxide BUN Creatinine Glucose POC Glucose Lactic Acid Calcium Phosphorus Magnesium AST ALT Alkaline Phosphatase Lactate Dehydrogenase Troponin T 0.051 H D 0.032 H D C-Reactive Protein NT-Pro-B Natriuret Pep Total Protein Albumin LDL Cholesterol Direct Vitamin B12 Crossmatch 11/05/21 11/05/21 11/05/21 06:11 06:11 06:11 WBC 31.8 H RBC 3.57 L Hgb 8.0 L Hct 27.7 L MCV 78 L MCH 22 L MCHC 29 L RDW 19.2 H Plt Count Seg Neuts % (Manual) 91.0 H Lymphocytes % (Manual) 4.5 L Seg Neutrophils # Man 28.9 H Lymphocytes # (Manual) Monocytes # (Manual) 1.1 H PT INR D-Dimer 1494.53 H ABG pH ABG pO2 ABG HCO3 ABG O2 Saturation ABG Base Excess ABG Hemoglobin Oxyhemoglobin Sodium Potassium Chloride Carbon Dioxide 19 L BUN 42 H Creatinine Glucose 115 H POC Glucose Lactic Acid Calcium Phosphorus Magnesium AST 43 H ALT Alkaline Phosphatase Lactate Dehydrogenase 187 H Troponin T C-Reactive Protein 22.20 H NT-Pro-B Natriuret Pep Total Protein 6.0 L Albumin 3.2 L LDL Cholesterol Direct Vitamin B12 Crossmatch 11/05/21 11/05/21 11/06/21 06:11 12:15 00:30 WBC RBC Hgb Hct MCV MCH MCHC RDW Plt Count Seg Neuts % (Manual) Lymphocytes % (Manual) Seg Neutrophils # Man Lymphocytes # (Manual) Monocytes # (Manual) PT INR D-Dimer ABG pH ABG pO2 ABG HCO3 ABG O2 Saturation ABG Base Excess ABG Hemoglobin Oxyhemoglobin Sodium Potassium Chloride Carbon Dioxide BUN Creatinine Glucose POC Glucose 113 H 69 L Lactic Acid Calcium Phosphorus Magnesium AST ALT Alkaline Phosphatase Lactate Dehydrogenase Troponin T 0.033 H C-Reactive Protein NT-Pro-B Natriuret Pep Total Protein Albumin LDL Cholesterol Direct Vitamin B12 Crossmatch 11/06/21 11/06/21 11/06/21 05:50 15:50 15:50 WBC 25.5 H RBC 3.62 L Hgb 8.0 L Hct 27.5 L MCV 76 L MCH 22 L MCHC 29 L RDW 19.6 H Plt Count Seg Neuts % (Manual) 92.0 H Lymphocytes % (Manual) 5.0 L Seg Neutrophils # Man 23.5 H Lymphocytes # (Manual) Monocytes # (Manual) PT INR D-Dimer ABG pH 7.305 L ABG pO2 ABG HCO3 15.8 L ABG O2 Saturation ABG Base Excess -9.6 L ABG Hemoglobin 8.6 L Oxyhemoglobin 94.6 L Sodium Potassium Chloride 113.9 H Carbon Dioxide 17 L BUN 56 H Creatinine Glucose 114 H POC Glucose Lactic Acid Calcium 7.9 L Phosphorus Magnesium AST 1410 H ALT 934 H Alkaline Phosphatase 142 H Lactate Dehydrogenase Troponin T C-Reactive Protein NT-Pro-B Natriuret Pep Total Protein 5.0 L Albumin 2.6 L LDL Cholesterol Direct Vitamin B12 Crossmatch 11/07/21 11/07/21 11/07/21 03:30 04:50 08:07 WBC RBC Hgb Hct MCV MCH MCHC RDW Plt Count Seg Neuts % (Manual) Lymphocytes % (Manual) Seg Neutrophils # Man Lymphocytes # (Manual) Monocytes # (Manual) PT INR D-Dimer ABG pH ABG pO2 296.9 H ABG HCO3 18.1 L ABG O2 Saturation 99.5 H ABG Base Excess -5.9 L ABG Hemoglobin 7.6 L Oxyhemoglobin Sodium Potassium Chloride Carbon Dioxide BUN Creatinine Glucose POC Glucose 106 H 108 H Lactic Acid Calcium Phosphorus Magnesium AST ALT Alkaline Phosphatase Lactate Dehydrogenase Troponin T C-Reactive Protein NT-Pro-B Natriuret Pep Total Protein Albumin LDL Cholesterol Direct Vitamin B12 Crossmatch 11/08/21 11/08/21 11/08/21 03:10 18:05 23:43 WBC RBC Hgb Hct MCV MCH MCHC RDW Plt Count Seg Neuts % (Manual) Lymphocytes % (Manual) Seg Neutrophils # Man Lymphocytes # (Manual) Monocytes # (Manual) PT INR D-Dimer ABG pH ABG pO2 127.4 H ABG HCO3 ABG O2 Saturation ABG Base Excess -3.4 L ABG Hemoglobin 7.4 L Oxyhemoglobin Sodium Potassium Chloride Carbon Dioxide BUN Creatinine Glucose POC Glucose 113 H 141 H Lactic Acid Calcium Phosphorus Magnesium AST ALT Alkaline Phosphatase Lactate Dehydrogenase Troponin T C-Reactive Protein NT-Pro-B Natriuret Pep Total Protein Albumin LDL Cholesterol Direct Vitamin B12 Crossmatch 11/08/21 11/08/21 11/09/21 Unknown Unknown 02:00 WBC 14.5 H RBC 3.35 L Hgb 7.5 L 8.1 L Hct 25.4 L 27.6 L MCV 76 L 76 L MCH 23 L 22 L MCHC RDW 19.9 H 19.9 H Plt Count Seg Neuts % (Manual) Lymphocytes % (Manual) Seg Neutrophils # Man Lymphocytes # (Manual) Monocytes # (Manual) PT INR D-Dimer ABG pH ABG pO2 ABG HCO3 ABG O2 Saturation ABG Base Excess ABG Hemoglobin Oxyhemoglobin Sodium 154 H D Potassium 3.3 L Chloride 120.7 H Carbon Dioxide 20 L BUN 38 H Creatinine Glucose POC Glucose Lactic Acid Calcium 8.3 L Phosphorus Magnesium AST ALT Alkaline Phosphatase Lactate Dehydrogenase Troponin T C-Reactive Protein NT-Pro-B Natriuret Pep Total Protein Albumin LDL Cholesterol Direct Vitamin B12 Crossmatch 11/09/21 11/09/21 11/09/21 02:00 02:31 05:12 WBC RBC Hgb Hct MCV MCH MCHC RDW Plt Count Seg Neuts % (Manual) Lymphocytes % (Manual) Seg Neutrophils # Man Lymphocytes # (Manual) Monocytes # (Manual) PT INR D-Dimer ABG pH 7.479 H ABG pO2 121.3 H ABG HCO3 ABG O2 Saturation ABG Base Excess ABG Hemoglobin 7.3 L Oxyhemoglobin Sodium Potassium Chloride 112.5 H Carbon Dioxide BUN 33 H Creatinine Glucose 161 H POC Glucose 135 H Lactic Acid Calcium Phosphorus Magnesium AST 251 H ALT 481 H Alkaline Phosphatase Lactate Dehydrogenase Troponin T C-Reactive Protein NT-Pro-B Natriuret Pep Total Protein 5.0 L Albumin 2.8 L LDL Cholesterol Direct Vitamin B12 Crossmatch 11/09/21 11/09/21 11/09/21 11:33 16:32 23:28 WBC RBC Hgb Hct MCV MCH MCHC RDW Plt Count Seg Neuts % (Manual) Lymphocytes % (Manual) Seg Neutrophils # Man Lymphocytes # (Manual) Monocytes # (Manual) PT INR D-Dimer ABG pH ABG pO2 ABG HCO3 ABG O2 Saturation ABG Base Excess ABG Hemoglobin Oxyhemoglobin Sodium Potassium Chloride Carbon Dioxide BUN Creatinine Glucose POC Glucose 132 H 133 H 143 H Lactic Acid Calcium Phosphorus Magnesium AST ALT Alkaline Phosphatase Lactate Dehydrogenase Troponin T C-Reactive Protein NT-Pro-B Natriuret Pep Total Protein Albumin LDL Cholesterol Direct Vitamin B12 Crossmatch 11/10/21 11/10/21 11/10/21 04:00 04:00 05:35 WBC 16.0 H RBC 3.61 L Hgb 8.0 L Hct 27.1 L MCV 75 L MCH 22 L MCHC RDW 20.4 H Plt Count Seg Neuts % (Manual) Lymphocytes % (Manual) Seg Neutrophils # Man Lymphocytes # (Manual) Monocytes # (Manual) PT INR D-Dimer ABG pH ABG pO2 ABG HCO3 ABG O2 Saturation ABG Base Excess ABG Hemoglobin Oxyhemoglobin Sodium 149 H Potassium Chloride 114.1 H Carbon Dioxide BUN 31 H Creatinine Glucose 148 H POC Glucose 132 H Lactic Acid Calcium 8.2 L Phosphorus Magnesium AST ALT Alkaline Phosphatase Lactate Dehydrogenase Troponin T C-Reactive Protein NT-Pro-B Natriuret Pep Total Protein Albumin LDL Cholesterol Direct Vitamin B12 Crossmatch 11/10/21 11/10/21 11/10/21 11:31 14:08 15:35 WBC RBC Hgb Hct MCV MCH MCHC RDW Plt Count Seg Neuts % (Manual) Lymphocytes % (Manual) Seg Neutrophils # Man Lymphocytes # (Manual) Monocytes # (Manual) PT INR D-Dimer ABG pH ABG pO2 126.6 H ABG HCO3 ABG O2 Saturation ABG Base Excess ABG Hemoglobin 7.4 L Oxyhemoglobin Sodium Potassium Chloride Carbon Dioxide BUN Creatinine Glucose POC Glucose 147 H Lactic Acid Calcium Phosphorus Magnesium AST ALT Alkaline Phosphatase Lactate Dehydrogenase Troponin T C-Reactive Protein NT-Pro-B Natriuret Pep Total Protein Albumin LDL Cholesterol Direct Vitamin B12 1823 H Crossmatch 11/10/21 11/11/21 11/11/21 17:53 00:55 04:28 WBC RBC Hgb Hct MCV MCH MCHC RDW Plt Count Seg Neuts % (Manual) Lymphocytes % (Manual) Seg Neutrophils # Man Lymphocytes # (Manual) Monocytes # (Manual) PT INR D-Dimer ABG pH ABG pO2 ABG HCO3 ABG O2 Saturation ABG Base Excess ABG Hemoglobin Oxyhemoglobin Sodium 149 H Potassium Chloride 112.2 H Carbon Dioxide BUN 34 H Creatinine Glucose 148 H POC Glucose 140 H 145 H Lactic Acid Calcium 7.9 L Phosphorus Magnesium AST 53 H ALT 203 H Alkaline Phosphatase Lactate Dehydrogenase Troponin T C-Reactive Protein NT-Pro-B Natriuret Pep Total Protein 4.9 L Albumin 2.6 L LDL Cholesterol Direct Vitamin B12 Crossmatch 11/11/21 11/11/21 11/11/21 04:28 04:28 05:28 WBC 20.9 H RBC 3.47 L Hgb 7.5 L Hct 26.0 L MCV 75 L MCH 22 L MCHC 29 L RDW 21.6 H Plt Count 132 L Seg Neuts % (Manual) Lymphocytes % (Manual) Seg Neutrophils # Man Lymphocytes # (Manual) Monocytes # (Manual) PT INR D-Dimer 2655.00 H ABG pH ABG pO2 ABG HCO3 ABG O2 Saturation ABG Base Excess ABG Hemoglobin Oxyhemoglobin Sodium Potassium Chloride Carbon Dioxide BUN Creatinine Glucose POC Glucose 154 H Lactic Acid Calcium Phosphorus Magnesium AST ALT Alkaline Phosphatase Lactate Dehydrogenase Troponin T C-Reactive Protein NT-Pro-B Natriuret Pep Total Protein Albumin LDL Cholesterol Direct Vitamin B12 Crossmatch 11/11/21 11/11/21 11/12/21 12:38 18:13 00:14 WBC RBC Hgb Hct MCV MCH MCHC RDW Plt Count Seg Neuts % (Manual) Lymphocytes % (Manual) Seg Neutrophils # Man Lymphocytes # (Manual) Monocytes # (Manual) PT INR D-Dimer ABG pH ABG pO2 ABG HCO3 ABG O2 Saturation ABG Base Excess ABG Hemoglobin Oxyhemoglobin Sodium Potassium Chloride Carbon Dioxide BUN Creatinine Glucose POC Glucose 137 H 108 H 137 H Lactic Acid Calcium Phosphorus Magnesium AST ALT Alkaline Phosphatase Lactate Dehydrogenase Troponin T C-Reactive Protein NT-Pro-B Natriuret Pep Total Protein Albumin LDL Cholesterol Direct Vitamin B12 Crossmatch 11/12/21 11/12/21 11/12/21 05:40 06:24 11:12 WBC RBC Hgb Hct MCV MCH MCHC RDW Plt Count Seg Neuts % (Manual) Lymphocytes % (Manual) Seg Neutrophils # Man Lymphocytes # (Manual) Monocytes # (Manual) PT INR D-Dimer ABG pH 7.586 H ABG pO2 150.6 H ABG HCO3 27.2 H ABG O2 Saturation 99.1 H ABG Base Excess 5.2 H ABG Hemoglobin 7.5 L Oxyhemoglobin Sodium Potassium Chloride Carbon Dioxide BUN Creatinine Glucose POC Glucose 132 H 140 H Lactic Acid Calcium Phosphorus Magnesium AST ALT Alkaline Phosphatase Lactate Dehydrogenase Troponin T C-Reactive Protein NT-Pro-B Natriuret Pep Total Protein Albumin LDL Cholesterol Direct Vitamin B12 Crossmatch 11/12/21 11/12/21 11/12/21 14:50 14:50 17:13 WBC 19.8 H RBC 3.27 L Hgb 7.1 L Hct 24.5 L MCV 75 L MCH 22 L MCHC 29 L RDW 22.3 H Plt Count Seg Neuts % (Manual) Lymphocytes % (Manual) Seg Neutrophils # Man Lymphocytes # (Manual) Monocytes # (Manual) PT INR D-Dimer ABG pH ABG pO2 ABG HCO3 ABG O2 Saturation ABG Base Excess ABG Hemoglobin Oxyhemoglobin Sodium 150 H Potassium 3.3 L Chloride 112.0 H Carbon Dioxide BUN 40 H Creatinine Glucose 151 H POC Glucose 121 H Lactic Acid Calcium 7.4 L Phosphorus 1.70 L Magnesium 1.40 L AST ALT Alkaline Phosphatase Lactate Dehydrogenase Troponin T C-Reactive Protein NT-Pro-B Natriuret Pep Total Protein Albumin LDL Cholesterol Direct Vitamin B12 Crossmatch 11/12/21 11/13/21 11/13/21 23:19 05:34 06:30 WBC RBC Hgb Hct MCV MCH MCHC RDW Plt Count Seg Neuts % (Manual) Lymphocytes % (Manual) Seg Neutrophils # Man Lymphocytes # (Manual) Monocytes # (Manual) PT INR D-Dimer ABG pH ABG pO2 ABG HCO3 ABG O2 Saturation ABG Base Excess ABG Hemoglobin Oxyhemoglobin Sodium 149 H Potassium Chloride 60.0 L Carbon Dioxide BUN 40 H Creatinine Glucose 146 H POC Glucose 113 H 132 H Lactic Acid Calcium 7.3 L Phosphorus Magnesium 2.40 H AST ALT 72 H Alkaline Phosphatase Lactate Dehydrogenase Troponin T C-Reactive Protein NT-Pro-B Natriuret Pep Total Protein 5.2 L Albumin 2.2 L LDL Cholesterol Direct Vitamin B12 Crossmatch 11/13/21 11/13/21 11/13/21 06:30 08:30 11:19 WBC 21.2 H RBC 3.12 L Hgb 6.8 L Hct 23.2 L MCV 74 L MCH 22 L MCHC 29 L RDW 22.2 H Plt Count 135 L Seg Neuts % (Manual) Lymphocytes % (Manual) Seg Neutrophils # Man Lymphocytes # (Manual) Monocytes # (Manual) PT INR D-Dimer ABG pH ABG pO2 ABG HCO3 ABG O2 Saturation ABG Base Excess ABG Hemoglobin Oxyhemoglobin Sodium Potassium Chloride Carbon Dioxide BUN Creatinine Glucose POC Glucose 136 H Lactic Acid Calcium Phosphorus Magnesium AST ALT Alkaline Phosphatase Lactate Dehydrogenase Troponin T C-Reactive Protein NT-Pro-B Natriuret Pep Total Protein Albumin LDL Cholesterol Direct Vitamin B12 Crossmatch See Detail 11/13/21 11/14/21 11/14/21 18:21 00:01 04:46 WBC 20.0 H RBC 3.41 L Hgb 7.9 L Hct 26.8 L MCV MCH 23 L MCHC 29 L RDW 24.0 H Plt Count Seg Neuts % (Manual) Lymphocytes % (Manual) Seg Neutrophils # Man Lymphocytes # (Manual) Monocytes # (Manual) PT INR D-Dimer ABG pH ABG pO2 ABG HCO3 ABG O2 Saturation ABG Base Excess ABG Hemoglobin Oxyhemoglobin Sodium Potassium Chloride Carbon Dioxide BUN Creatinine Glucose POC Glucose 149 H 141 H Lactic Acid Calcium Phosphorus Magnesium AST ALT Alkaline Phosphatase Lactate Dehydrogenase Troponin T C-Reactive Protein NT-Pro-B Natriuret Pep Total Protein Albumin LDL Cholesterol Direct Vitamin B12 Crossmatch 11/14/21 11/14/21 11/14/21 04:46 05:10 11:10 WBC RBC Hgb Hct MCV MCH MCHC RDW Plt Count Seg Neuts % (Manual) Lymphocytes % (Manual) Seg Neutrophils # Man Lymphocytes # (Manual) Monocytes # (Manual) PT INR D-Dimer ABG pH ABG pO2 ABG HCO3 ABG O2 Saturation ABG Base Excess ABG Hemoglobin Oxyhemoglobin Sodium 148 H Potassium Chloride 113.1 H Carbon Dioxide BUN 43 H Creatinine Glucose 140 H POC Glucose 132 H 133 H Lactic Acid Calcium 7.5 L Phosphorus Magnesium AST ALT Alkaline Phosphatase Lactate Dehydrogenase Troponin T C-Reactive Protein NT-Pro-B Natriuret Pep Total Protein Albumin LDL Cholesterol Direct Vitamin B12 Crossmatch 11/14/21 11/14/21 11/14/21 16:14 17:48 23:23 WBC RBC Hgb Hct MCV MCH MCHC RDW Plt Count Seg Neuts % (Manual) Lymphocytes % (Manual) Seg Neutrophils # Man Lymphocytes # (Manual) Monocytes # (Manual) PT INR D-Dimer ABG pH ABG pO2 ABG HCO3 28.0 H ABG O2 Saturation ABG Base Excess 3.1 H ABG Hemoglobin 5.8 L Oxyhemoglobin 94.8 L Sodium Potassium Chloride Carbon Dioxide BUN Creatinine Glucose POC Glucose 130 H 136 H Lactic Acid Calcium Phosphorus Magnesium AST ALT Alkaline Phosphatase Lactate Dehydrogenase Troponin T C-Reactive Protein NT-Pro-B Natriuret Pep Total Protein Albumin LDL Cholesterol Direct Vitamin B12 Crossmatch 11/15/21 11/15/21 11/15/21 05:20 05:50 05:50 WBC 19.9 H RBC 3.50 L Hgb 8.2 L Hct 27.9 L MCV MCH 23 L MCHC 29 L RDW 24.9 H Plt Count Seg Neuts % (Manual) Lymphocytes % (Manual) Seg Neutrophils # Man Lymphocytes # (Manual) Monocytes # (Manual) PT INR D-Dimer ABG pH ABG pO2 ABG HCO3 ABG O2 Saturation ABG Base Excess ABG Hemoglobin Oxyhemoglobin Sodium 149 H Potassium Chloride 112.0 H Carbon Dioxide BUN 48 H Creatinine Glucose 152 H POC Glucose 137 H Lactic Acid Calcium 7.9 L Phosphorus Magnesium AST ALT Alkaline Phosphatase Lactate Dehydrogenase Troponin T C-Reactive Protein NT-Pro-B Natriuret Pep Total Protein Albumin LDL Cholesterol Direct Vitamin B12 Crossmatch 11/15/21 11/15/21 11/15/21 12:12 17:07 23:24 WBC RBC Hgb Hct MCV MCH MCHC RDW Plt Count Seg Neuts % (Manual) Lymphocytes % (Manual) Seg Neutrophils # Man Lymphocytes # (Manual) Monocytes # (Manual) PT INR D-Dimer ABG pH ABG pO2 ABG HCO3 ABG O2 Saturation ABG Base Excess ABG Hemoglobin Oxyhemoglobin Sodium Potassium Chloride Carbon Dioxide BUN Creatinine Glucose POC Glucose 114 H 135 H 123 H Lactic Acid Calcium Phosphorus Magnesium AST ALT Alkaline Phosphatase Lactate Dehydrogenase Troponin T C-Reactive Protein NT-Pro-B Natriuret Pep Total Protein Albumin LDL Cholesterol Direct Vitamin B12 Crossmatch 11/16/21 11/16/21 11/16/21 05:21 10:00 10:00 WBC 21.7 H RBC 2.57 L Hgb 6.0 L Hct 20.2 L D MCV MCH 24 L MCHC RDW 26.3 H Plt Count Seg Neuts % (Manual) Lymphocytes % (Manual) Seg Neutrophils # Man Lymphocytes # (Manual) Monocytes # (Manual) PT INR D-Dimer ABG pH ABG pO2 ABG HCO3 ABG O2 Saturation ABG Base Excess ABG Hemoglobin Oxyhemoglobin Sodium 153 H Potassium Chloride 114.9 H Carbon Dioxide BUN 74 H Creatinine Glucose 155 H POC Glucose 127 H Lactic Acid Calcium 8.1 L Phosphorus Magnesium AST ALT Alkaline Phosphatase Lactate Dehydrogenase Troponin T C-Reactive Protein NT-Pro-B Natriuret Pep Total Protein Albumin LDL Cholesterol Direct Vitamin B12 Crossmatch 11/16/21 11/16/21 11/16/21 11:34 14:00 15:25 WBC 17.2 H RBC 2.08 L Hgb 4.7 L* Hct 16.2 L* MCV 78 L MCH 23 L MCHC 29 L RDW 26.0 H Plt Count Seg Neuts % (Manual) 87.0 H Lymphocytes % (Manual) 8.0 L Seg Neutrophils # Man 15.0 H Lymphocytes # (Manual) Monocytes # (Manual) 0.9 H PT INR D-Dimer ABG pH ABG pO2 ABG HCO3 ABG O2 Saturation ABG Base Excess ABG Hemoglobin Oxyhemoglobin Sodium Potassium Chloride Carbon Dioxide BUN Creatinine Glucose POC Glucose 131 H Lactic Acid Calcium Phosphorus Magnesium AST ALT Alkaline Phosphatase Lactate Dehydrogenase Troponin T C-Reactive Protein NT-Pro-B Natriuret Pep Total Protein Albumin LDL Cholesterol Direct Vitamin B12 Crossmatch See Detail 11/16/21 11/16/21 11/16/21 15:25 17:21 22:43 WBC RBC Hgb 8.6 L D Hct 27.7 L D MCV MCH MCHC RDW Plt Count Seg Neuts % (Manual) Lymphocytes % (Manual) Seg Neutrophils # Man Lymphocytes # (Manual) Monocytes # (Manual) PT INR D-Dimer ABG pH ABG pO2 ABG HCO3 ABG O2 Saturation ABG Base Excess ABG Hemoglobin Oxyhemoglobin Sodium 148 H Potassium Chloride 113.2 H Carbon Dioxide BUN 84 H Creatinine Glucose 164 H POC Glucose 124 H Lactic Acid Calcium 7.6 L Phosphorus Magnesium AST ALT Alkaline Phosphatase Lactate Dehydrogenase Troponin T C-Reactive Protein NT-Pro-B Natriuret Pep Total Protein Albumin LDL Cholesterol Direct Vitamin B12 Crossmatch 11/16/21 11/17/21 11/17/21 23:07 05:33 05:56 WBC 25.1 H RBC 3.47 L Hgb 8.7 L Hct 28.5 L MCV MCH 25 L MCHC RDW 22.3 H Plt Count Seg Neuts % (Manual) Lymphocytes % (Manual) Seg Neutrophils # Man Lymphocytes # (Manual) Monocytes # (Manual) PT INR D-Dimer ABG pH ABG pO2 ABG HCO3 ABG O2 Saturation ABG Base Excess ABG Hemoglobin Oxyhemoglobin Sodium Potassium Chloride Carbon Dioxide BUN Creatinine Glucose POC Glucose 128 H 133 H Lactic Acid Calcium Phosphorus Magnesium AST ALT Alkaline Phosphatase Lactate Dehydrogenase Troponin T C-Reactive Protein NT-Pro-B Natriuret Pep Total Protein Albumin LDL Cholesterol Direct Vitamin B12 Crossmatch 11/17/21 11/17/21 11/17/21 05:56 11:00 11:55 WBC RBC Hgb 8.3 L Hct 26.9 L MCV MCH MCHC RDW Plt Count Seg Neuts % (Manual) Lymphocytes % (Manual) Seg Neutrophils # Man Lymphocytes # (Manual) Monocytes # (Manual) PT INR D-Dimer ABG pH ABG pO2 ABG HCO3 ABG O2 Saturation ABG Base Excess ABG Hemoglobin Oxyhemoglobin Sodium 151 H Potassium Chloride 113.6 H Carbon Dioxide BUN 85 H Creatinine Glucose 132 H POC Glucose 121 H Lactic Acid Calcium 7.8 L Phosphorus Magnesium AST ALT Alkaline Phosphatase Lactate Dehydrogenase Troponin T C-Reactive Protein NT-Pro-B Natriuret Pep Total Protein 5.1 L Albumin 2.2 L LDL Cholesterol Direct Vitamin B12 Crossmatch 11/17/21 11/17/21 11/18/21 18:04 18:55 00:26 WBC RBC Hgb 7.5 L 7.1 L Hct 24.8 L 23.6 L MCV MCH MCHC RDW Plt Count Seg Neuts % (Manual) Lymphocytes % (Manual) Seg Neutrophils # Man Lymphocytes # (Manual) Monocytes # (Manual) PT INR D-Dimer ABG pH ABG pO2 ABG HCO3 ABG O2 Saturation ABG Base Excess ABG Hemoglobin Oxyhemoglobin Sodium Potassium Chloride Carbon Dioxide BUN Creatinine Glucose POC Glucose 144 H Lactic Acid Calcium Phosphorus Magnesium AST ALT Alkaline Phosphatase Lactate Dehydrogenase Troponin T C-Reactive Protein NT-Pro-B Natriuret Pep Total Protein Albumin LDL Cholesterol Direct Vitamin B12 Crossmatch 11/18/21 11/18/21 11/18/21 00:43 05:10 05:10 WBC 12.5 H RBC 2.39 L Hgb 6.1 L Hct 20.2 L MCV MCH 25 L MCHC RDW 23.2 H Plt Count Seg Neuts % (Manual) Lymphocytes % (Manual) Seg Neutrophils # Man Lymphocytes # (Manual) Monocytes # (Manual) PT INR D-Dimer ABG pH ABG pO2 ABG HCO3 ABG O2 Saturation ABG Base Excess ABG Hemoglobin Oxyhemoglobin Sodium 131 L D Potassium 2.9 L* D Chloride 97.8 L Carbon Dioxide BUN 58 H Creatinine Glucose 665 H* POC Glucose 139 H Lactic Acid Calcium 7.0 L Phosphorus 2.20 L D Magnesium 1.50 L AST ALT Alkaline Phosphatase Lactate Dehydrogenase Troponin T C-Reactive Protein NT-Pro-B Natriuret Pep Total Protein Albumin LDL Cholesterol Direct Vitamin B12 Crossmatch 11/18/21 11/18/21 11/18/21 05:23 07:10 10:45 WBC RBC Hgb Hct MCV MCH MCHC RDW Plt Count Seg Neuts % (Manual) Lymphocytes % (Manual) Seg Neutrophils # Man Lymphocytes # (Manual) Monocytes # (Manual) PT INR D-Dimer ABG pH ABG pO2 ABG HCO3 ABG O2 Saturation ABG Base Excess ABG Hemoglobin Oxyhemoglobin Sodium 148 H D Potassium 3.1 L Chloride 111.9 H Carbon Dioxide BUN 63 H Creatinine Glucose 141 H POC Glucose 124 H Lactic Acid Calcium 8.1 L D Phosphorus Magnesium AST ALT Alkaline Phosphatase Lactate Dehydrogenase Troponin T C-Reactive Protein NT-Pro-B Natriuret Pep Total Protein Albumin LDL Cholesterol Direct Vitamin B12 Crossmatch See Detail 11/18/21 11/19/21 11/19/21 11:57 00:19 04:55 WBC RBC 3.35 L Hgb 9.0 L 8.9 L Hct 28.3 L D 28.1 L MCV MCH 27 L MCHC RDW 20.3 H Plt Count Seg Neuts % (Manual) Lymphocytes % (Manual) Seg Neutrophils # Man Lymphocytes # (Manual) Monocytes # (Manual) PT INR D-Dimer ABG pH ABG pO2 ABG HCO3 ABG O2 Saturation ABG Base Excess ABG Hemoglobin Oxyhemoglobin Sodium Potassium Chloride Carbon Dioxide BUN Creatinine Glucose POC Glucose 119 H Lactic Acid Calcium Phosphorus Magnesium AST ALT Alkaline Phosphatase Lactate Dehydrogenase Troponin T C-Reactive Protein NT-Pro-B Natriuret Pep Total Protein Albumin LDL Cholesterol Direct Vitamin B12 Crossmatch 11/19/21 11/19/21 11/20/21 04:55 05:42 00:55 WBC RBC Hgb 9.0 L Hct 28.6 L MCV MCH MCHC RDW Plt Count Seg Neuts % (Manual) Lymphocytes % (Manual) Seg Neutrophils # Man Lymphocytes # (Manual) Monocytes # (Manual) PT INR D-Dimer ABG pH ABG pO2 ABG HCO3 ABG O2 Saturation ABG Base Excess ABG Hemoglobin Oxyhemoglobin Sodium Potassium 3.5 L Chloride 108.6 H Carbon Dioxide BUN 47 H Creatinine Glucose 207 H POC Glucose 63 L Lactic Acid Calcium 7.1 L Phosphorus Magnesium AST ALT Alkaline Phosphatase Lactate Dehydrogenase Troponin T C-Reactive Protein NT-Pro-B Natriuret Pep Total Protein Albumin LDL Cholesterol Direct Vitamin B12 Crossmatch 11/20/21 11/20/21 11/20/21 05:40 05:40 Unknown WBC RBC 3.40 L Hgb 9.1 L Hct 28.8 L MCV MCH 27 L MCHC RDW 20.7 H Plt Count Seg Neuts % (Manual) Lymphocytes % (Manual) Seg Neutrophils # Man Lymphocytes # (Manual) Monocytes # (Manual) PT INR D-Dimer ABG pH ABG pO2 ABG HCO3 ABG O2 Saturation ABG Base Excess -2.7 L ABG Hemoglobin 9.5 L Oxyhemoglobin 94.3 L Sodium Potassium 3.5 L Chloride 108.9 H Carbon Dioxide BUN 37 H Creatinine Glucose 117 H POC Glucose Lactic Acid Calcium 7.5 L Phosphorus Magnesium AST ALT Alkaline Phosphatase Lactate Dehydrogenase Troponin T C-Reactive Protein NT-Pro-B Natriuret Pep Total Protein Albumin LDL Cholesterol Direct Vitamin B12 Crossmatch 11/21/21 11/21/21 11/21/21 04:30 04:30 16:00 WBC RBC 3.25 L Hgb 8.6 L Hct 28.1 L MCV MCH 26 L MCHC RDW 20.7 H Plt Count Seg Neuts % (Manual) Lymphocytes % (Manual) Seg Neutrophils # Man Lymphocytes # (Manual) Monocytes # (Manual) PT INR D-Dimer ABG pH ABG pO2 114.2 H ABG HCO3 ABG O2 Saturation ABG Base Excess ABG Hemoglobin 9.1 L Oxyhemoglobin Sodium 134 L Potassium Chloride Carbon Dioxide 20 L BUN 34 H Creatinine Glucose POC Glucose Lactic Acid Calcium 7.1 L Phosphorus Magnesium AST ALT Alkaline Phosphatase Lactate Dehydrogenase Troponin T C-Reactive Protein NT-Pro-B Natriuret Pep Total Protein Albumin LDL Cholesterol Direct Vitamin B12 Crossmatch 11/22/21 11/22/21 11/22/21 07:07 07:07 23:54 WBC RBC 3.30 L Hgb 9.0 L Hct 28.5 L MCV MCH 27 L MCHC RDW 21.0 H Plt Count Seg Neuts % (Manual) Lymphocytes % (Manual) Seg Neutrophils # Man Lymphocytes # (Manual) Monocytes # (Manual) PT INR D-Dimer ABG pH ABG pO2 ABG HCO3 ABG O2 Saturation ABG Base Excess ABG Hemoglobin Oxyhemoglobin Sodium Potassium Chloride Carbon Dioxide BUN 32 H Creatinine Glucose 106 H POC Glucose 110 H Lactic Acid Calcium 7.5 L Phosphorus Magnesium AST ALT Alkaline Phosphatase Lactate Dehydrogenase Troponin T C-Reactive Protein NT-Pro-B Natriuret Pep Total Protein Albumin LDL Cholesterol Direct Vitamin B12 Crossmatch 11/23/21 11/23/21 11/23/21 04:38 04:38 06:01 WBC RBC 3.23 L Hgb 8.8 L Hct 28.0 L MCV MCH 27 L MCHC RDW 21.3 H Plt Count Seg Neuts % (Manual) Lymphocytes % (Manual) Seg Neutrophils # Man Lymphocytes # (Manual) Monocytes # (Manual) PT INR D-Dimer ABG pH ABG pO2 ABG HCO3 ABG O2 Saturation ABG Base Excess ABG Hemoglobin Oxyhemoglobin Sodium 136 L Potassium Chloride Carbon Dioxide 20 L BUN 32 H Creatinine Glucose 109 H POC Glucose 115 H Lactic Acid Calcium 7.7 L Phosphorus Magnesium AST ALT Alkaline Phosphatase Lactate Dehydrogenase Troponin T C-Reactive Protein NT-Pro-B Natriuret Pep Total Protein Albumin LDL Cholesterol Direct Vitamin B12 Crossmatch 11/23/21 11/24/21 11/24/21 11:40 00:03 04:13 WBC RBC 3.18 L Hgb 8.5 L Hct 27.5 L MCV MCH 27 L MCHC RDW 21.6 H Plt Count Seg Neuts % (Manual) Lymphocytes % (Manual) Seg Neutrophils # Man Lymphocytes # (Manual) Monocytes # (Manual) PT INR D-Dimer ABG pH ABG pO2 ABG HCO3 ABG O2 Saturation ABG Base Excess ABG Hemoglobin Oxyhemoglobin Sodium Potassium Chloride Carbon Dioxide BUN Creatinine Glucose POC Glucose 117 H 111 H Lactic Acid Calcium Phosphorus Magnesium AST ALT Alkaline Phosphatase Lactate Dehydrogenase Troponin T C-Reactive Protein NT-Pro-B Natriuret Pep Total Protein Albumin LDL Cholesterol Direct Vitamin B12 Crossmatch 11/24/21 11/24/21 11/24/21 04:13 05:30 11:10 WBC RBC Hgb Hct MCV MCH MCHC RDW Plt Count Seg Neuts % (Manual) Lymphocytes % (Manual) Seg Neutrophils # Man Lymphocytes # (Manual) Monocytes # (Manual) PT INR D-Dimer ABG pH ABG pO2 ABG HCO3 ABG O2 Saturation ABG Base Excess ABG Hemoglobin Oxyhemoglobin Sodium Potassium Chloride Carbon Dioxide BUN 31 H Creatinine Glucose 101 H POC Glucose 115 H 107 H Lactic Acid Calcium 7.7 L Phosphorus Magnesium AST ALT Alkaline Phosphatase Lactate Dehydrogenase Troponin T C-Reactive Protein NT-Pro-B Natriuret Pep Total Protein Albumin LDL Cholesterol Direct Vitamin B12 Crossmatch 11/24/21 11/24/21 11/25/21 16:34 17:57 05:12 WBC RBC 3.11 L Hgb 8.2 L Hct 26.6 L MCV MCH 26 L MCHC RDW 21.3 H Plt Count Seg Neuts % (Manual) Lymphocytes % (Manual) Seg Neutrophils # Man Lymphocytes # (Manual) Monocytes # (Manual) PT INR D-Dimer ABG pH ABG pO2 ABG HCO3 ABG O2 Saturation ABG Base Excess ABG Hemoglobin Oxyhemoglobin Sodium Potassium Chloride Carbon Dioxide BUN Creatinine Glucose POC Glucose 115 H 110 H Lactic Acid Calcium Phosphorus Magnesium AST ALT Alkaline Phosphatase Lactate Dehydrogenase Troponin T C-Reactive Protein NT-Pro-B Natriuret Pep Total Protein Albumin LDL Cholesterol Direct Vitamin B12 Crossmatch 11/25/21 11/25/21 11/26/21 05:12 11:20 05:00 WBC RBC 3.30 L Hgb 8.8 L Hct 28.2 L MCV MCH 27 L MCHC RDW 20.7 H Plt Count Seg Neuts % (Manual) Lymphocytes % (Manual) Seg Neutrophils # Man Lymphocytes # (Manual) Monocytes # (Manual) PT INR D-Dimer ABG pH ABG pO2 ABG HCO3 ABG O2 Saturation ABG Base Excess ABG Hemoglobin Oxyhemoglobin Sodium Potassium Chloride Carbon Dioxide BUN 32 H Creatinine Glucose 118 H POC Glucose 118 H Lactic Acid Calcium 8.2 L Phosphorus Magnesium AST ALT Alkaline Phosphatase Lactate Dehydrogenase Troponin T C-Reactive Protein NT-Pro-B Natriuret Pep Total Protein Albumin LDL Cholesterol Direct Vitamin B12 Crossmatch 11/26/21 11/26/21 11/26/21 05:00 05:00 05:44 WBC RBC Hgb Hct MCV MCH MCHC RDW Plt Count Seg Neuts % (Manual) Lymphocytes % (Manual) Seg Neutrophils # Man Lymphocytes # (Manual) Monocytes # (Manual) PT 16.9 H INR 1.24 H D-Dimer ABG pH ABG pO2 ABG HCO3 ABG O2 Saturation ABG Base Excess ABG Hemoglobin Oxyhemoglobin Sodium Potassium Chloride Carbon Dioxide BUN 31 H Creatinine Glucose 104 H POC Glucose 110 H Lactic Acid Calcium 7.9 L Phosphorus Magnesium AST ALT Alkaline Phosphatase Lactate Dehydrogenase Troponin T C-Reactive Protein NT-Pro-B Natriuret Pep Total Protein Albumin LDL Cholesterol Direct Vitamin B12 Crossmatch 11/26/21 11/27/21 11/27/21 23:55 07:40 07:40 WBC RBC 3.18 L Hgb 8.5 L Hct 27.0 L MCV MCH 27 L MCHC RDW 21.2 H Plt Count Seg Neuts % (Manual) Lymphocytes % (Manual) Seg Neutrophils # Man Lymphocytes # (Manual) Monocytes # (Manual) PT INR D-Dimer ABG pH ABG pO2 ABG HCO3 ABG O2 Saturation ABG Base Excess ABG Hemoglobin Oxyhemoglobin Sodium Potassium Chloride Carbon Dioxide BUN 27 H Creatinine Glucose 112 H POC Glucose 63 L Lactic Acid Calcium 7.6 L Phosphorus Magnesium AST ALT Alkaline Phosphatase Lactate Dehydrogenase Troponin T C-Reactive Protein NT-Pro-B Natriuret Pep Total Protein Albumin LDL Cholesterol Direct Vitamin B12 Crossmatch 11/27/21 11/27/21 11/27/21 12:04 13:40 13:40 WBC RBC 3.31 L Hgb 8.7 L Hct 28.0 L MCV MCH 26 L MCHC RDW 20.7 H Plt Count Seg Neuts % (Manual) Lymphocytes % (Manual) Seg Neutrophils # Man Lymphocytes # (Manual) Monocytes # (Manual) PT INR D-Dimer ABG pH ABG pO2 ABG HCO3 ABG O2 Saturation ABG Base Excess ABG Hemoglobin Oxyhemoglobin Sodium 136 L Potassium Chloride Carbon Dioxide BUN 25 H Creatinine Glucose 127 H POC Glucose 109 H Lactic Acid Calcium 7.6 L Phosphorus Magnesium 1.40 L AST ALT Alkaline Phosphatase Lactate Dehydrogenase Troponin T C-Reactive Protein NT-Pro-B Natriuret Pep Total Protein Albumin LDL Cholesterol Direct Vitamin B12 Crossmatch 11/27/21 11/27/21 11/28/21 17:44 23:33 12:20 WBC RBC Hgb Hct MCV MCH MCHC RDW Plt Count Seg Neuts % (Manual) Lymphocytes % (Manual) Seg Neutrophils # Man Lymphocytes # (Manual) Monocytes # (Manual) PT INR D-Dimer ABG pH ABG pO2 ABG HCO3 ABG O2 Saturation ABG Base Excess ABG Hemoglobin Oxyhemoglobin Sodium Potassium Chloride Carbon Dioxide BUN Creatinine Glucose POC Glucose 107 H 108 H 114 H Lactic Acid Calcium Phosphorus Magnesium AST ALT Alkaline Phosphatase Lactate Dehydrogenase Troponin T C-Reactive Protein NT-Pro-B Natriuret Pep Total Protein Albumin LDL Cholesterol Direct Vitamin B12 Crossmatch 11/29/21 11/29/21 11/29/21 00:09 03:20 03:20 WBC RBC 3.05 L Hgb 8.2 L Hct 25.8 L MCV MCH 27 L MCHC RDW 20.9 H Plt Count Seg Neuts % (Manual) Lymphocytes % (Manual) Seg Neutrophils # Man Lymphocytes # (Manual) Monocytes # (Manual) PT INR D-Dimer ABG pH ABG pO2 ABG HCO3 ABG O2 Saturation ABG Base Excess ABG Hemoglobin Oxyhemoglobin Sodium 133 L Potassium Chloride Carbon Dioxide BUN 24 H Creatinine Glucose 137 H POC Glucose 134 H Lactic Acid Calcium 7.4 L Phosphorus Magnesium AST ALT Alkaline Phosphatase Lactate Dehydrogenase Troponin T C-Reactive Protein NT-Pro-B Natriuret Pep Total Protein Albumin LDL Cholesterol Direct Vitamin B12 Crossmatch 11/29/21 11/29/21 11/29/21 05:38 11:39 17:11 WBC RBC Hgb Hct MCV MCH MCHC RDW Plt Count Seg Neuts % (Manual) Lymphocytes % (Manual) Seg Neutrophils # Man Lymphocytes # (Manual) Monocytes # (Manual) PT INR D-Dimer ABG pH ABG pO2 ABG HCO3 ABG O2 Saturation ABG Base Excess ABG Hemoglobin Oxyhemoglobin Sodium Potassium Chloride Carbon Dioxide BUN Creatinine Glucose POC Glucose 117 H 143 H 124 H Lactic Acid Calcium Phosphorus Magnesium AST ALT Alkaline Phosphatase Lactate Dehydrogenase Troponin T C-Reactive Protein NT-Pro-B Natriuret Pep Total Protein Albumin LDL Cholesterol Direct Vitamin B12 Crossmatch 11/29/21 11/30/21 11/30/21 20:15 05:40 05:40 WBC 12.6 H RBC 3.41 L Hgb 9.1 L Hct 28.9 L MCV MCH 27 L MCHC RDW 20.4 H Plt Count Seg Neuts % (Manual) Lymphocytes % (Manual) Seg Neutrophils # Man Lymphocytes # (Manual) Monocytes # (Manual) PT INR D-Dimer ABG pH ABG pO2 ABG HCO3 ABG O2 Saturation ABG Base Excess ABG Hemoglobin Oxyhemoglobin Sodium Potassium Chloride Carbon Dioxide BUN 24 H Creatinine Glucose 131 H POC Glucose Lactic Acid Calcium 7.6 L Phosphorus Magnesium AST ALT Alkaline Phosphatase Lactate Dehydrogenase Troponin T 0.045 H C-Reactive Protein NT-Pro-B Natriuret Pep Total Protein Albumin LDL Cholesterol Direct 25 L Vitamin B12 Crossmatch 11/30/21 11/30/21 12/01/21 11:29 16:51 05:00 WBC RBC 2.97 L Hgb 8.0 L Hct 25.0 L MCV MCH 27 L MCHC RDW 20.8 H Plt Count Seg Neuts % (Manual) Lymphocytes % (Manual) Seg Neutrophils # Man Lymphocytes # (Manual) Monocytes # (Manual) PT INR D-Dimer ABG pH ABG pO2 ABG HCO3 ABG O2 Saturation ABG Base Excess ABG Hemoglobin Oxyhemoglobin Sodium Potassium Chloride Carbon Dioxide BUN Creatinine Glucose POC Glucose 123 H 114 H Lactic Acid Calcium Phosphorus Magnesium AST ALT Alkaline Phosphatase Lactate Dehydrogenase Troponin T C-Reactive Protein NT-Pro-B Natriuret Pep Total Protein Albumin LDL Cholesterol Direct Vitamin B12 Crossmatch 12/01/21 12/01/21 12/01/21 05:00 05:25 11:54 WBC RBC Hgb Hct MCV MCH MCHC RDW Plt Count Seg Neuts % (Manual) Lymphocytes % (Manual) Seg Neutrophils # Man Lymphocytes # (Manual) Monocytes # (Manual) PT INR D-Dimer ABG pH ABG pO2 ABG HCO3 ABG O2 Saturation ABG Base Excess ABG Hemoglobin Oxyhemoglobin Sodium 136 L Potassium Chloride Carbon Dioxide BUN 24 H Creatinine Glucose 117 H POC Glucose 108 H 107 H Lactic Acid Calcium 7.5 L Phosphorus Magnesium 1.60 L AST ALT Alkaline Phosphatase Lactate Dehydrogenase Troponin T C-Reactive Protein NT-Pro-B Natriuret Pep Total Protein Albumin LDL Cholesterol Direct Vitamin B12 Crossmatch 12/01/21 12/02/21 12/02/21 17:40 00:07 04:20 WBC RBC 2.92 L Hgb 7.7 L Hct 24.3 L MCV MCH 26 L MCHC RDW 20.5 H Plt Count Seg Neuts % (Manual) Lymphocytes % (Manual) Seg Neutrophils # Man Lymphocytes # (Manual) Monocytes # (Manual) PT INR D-Dimer ABG pH ABG pO2 ABG HCO3 ABG O2 Saturation ABG Base Excess ABG Hemoglobin Oxyhemoglobin Sodium Potassium Chloride Carbon Dioxide BUN Creatinine Glucose POC Glucose 123 H 110 H Lactic Acid Calcium Phosphorus Magnesium AST ALT Alkaline Phosphatase Lactate Dehydrogenase Troponin T C-Reactive Protein NT-Pro-B Natriuret Pep Total Protein Albumin LDL Cholesterol Direct Vitamin B12 Crossmatch 12/02/21 12/02/21 12/02/21 04:20 11:17 18:20 WBC RBC Hgb Hct MCV MCH MCHC RDW Plt Count Seg Neuts % (Manual) Lymphocytes % (Manual) Seg Neutrophils # Man Lymphocytes # (Manual) Monocytes # (Manual) PT INR D-Dimer ABG pH ABG pO2 ABG HCO3 ABG O2 Saturation ABG Base Excess ABG Hemoglobin Oxyhemoglobin Sodium 135 L Potassium Chloride Carbon Dioxide BUN 26 H Creatinine Glucose 121 H POC Glucose 117 H 113 H Lactic Acid Calcium 7.4 L Phosphorus Magnesium AST ALT Alkaline Phosphatase Lactate Dehydrogenase Troponin T C-Reactive Protein NT-Pro-B Natriuret Pep Total Protein Albumin LDL Cholesterol Direct Vitamin B12 Crossmatch 12/03/21 12/03/21 12/03/21 00:12 04:00 04:00 WBC RBC 2.99 L Hgb 7.8 L Hct 24.6 L MCV MCH 26 L MCHC RDW 20.2 H Plt Count Seg Neuts % (Manual) Lymphocytes % (Manual) Seg Neutrophils # Man Lymphocytes # (Manual) Monocytes # (Manual) PT INR D-Dimer ABG pH ABG pO2 ABG HCO3 ABG O2 Saturation ABG Base Excess ABG Hemoglobin Oxyhemoglobin Sodium 136 L Potassium Chloride Carbon Dioxide BUN 27 H Creatinine Glucose 133 H POC Glucose 121 H Lactic Acid Calcium 7.5 L Phosphorus Magnesium AST ALT Alkaline Phosphatase Lactate Dehydrogenase Troponin T C-Reactive Protein NT-Pro-B Natriuret Pep Total Protein Albumin LDL Cholesterol Direct Vitamin B12 Crossmatch 12/03/21 12/03/21 12/03/21 06:30 11:13 16:00 WBC RBC Hgb Hct MCV MCH MCHC RDW Plt Count Seg Neuts % (Manual) Lymphocytes % (Manual) Seg Neutrophils # Man Lymphocytes # (Manual) Monocytes # (Manual) PT INR D-Dimer ABG pH ABG pO2 ABG HCO3 ABG O2 Saturation ABG Base Excess ABG Hemoglobin Oxyhemoglobin Sodium Potassium Chloride Carbon Dioxide BUN Creatinine Glucose POC Glucose 129 H 125 H 125 H Lactic Acid Calcium Phosphorus Magnesium AST ALT Alkaline Phosphatase Lactate Dehydrogenase Troponin T C-Reactive Protein NT-Pro-B Natriuret Pep Total Protein Albumin LDL Cholesterol Direct Vitamin B12 Crossmatch 12/03/21 12/04/21 12/04/21 23:32 04:00 05:36 WBC RBC Hgb Hct MCV MCH MCHC RDW Plt Count Seg Neuts % (Manual) Lymphocytes % (Manual) Seg Neutrophils # Man Lymphocytes # (Manual) Monocytes # (Manual) PT INR D-Dimer ABG pH ABG pO2 ABG HCO3 ABG O2 Saturation ABG Base Excess ABG Hemoglobin Oxyhemoglobin Sodium Potassium 3.5 L Chloride Carbon Dioxide BUN 26 H Creatinine 0.5 L Glucose 151 H POC Glucose 133 H 142 H Lactic Acid Calcium 8.3 L Phosphorus Magnesium AST ALT Alkaline Phosphatase Lactate Dehydrogenase Troponin T C-Reactive Protein NT-Pro-B Natriuret Pep Total Protein Albumin LDL Cholesterol Direct Vitamin B12 Crossmatch 12/04/21 12/04/21 12/05/21 11:24 15:58 04:36 WBC RBC Hgb Hct MCV MCH MCHC RDW Plt Count Seg Neuts % (Manual) Lymphocytes % (Manual) Seg Neutrophils # Man Lymphocytes # (Manual) Monocytes # (Manual) PT INR D-Dimer ABG pH ABG pO2 ABG HCO3 ABG O2 Saturation ABG Base Excess ABG Hemoglobin Oxyhemoglobin Sodium Potassium Chloride Carbon Dioxide BUN 21 H Creatinine 0.5 L Glucose 119 H POC Glucose 130 H 111 H Lactic Acid Calcium 8.3 L Phosphorus Magnesium AST ALT Alkaline Phosphatase Lactate Dehydrogenase Troponin T C-Reactive Protein NT-Pro-B Natriuret Pep Total Protein Albumin LDL Cholesterol Direct Vitamin B12 Crossmatch 12/05/21 12/05/21 12/05/21 05:15 10:40 11:12 WBC RBC 2.98 L Hgb 8.1 L Hct 24.6 L MCV MCH 27 L MCHC RDW 20.8 H Plt Count Seg Neuts % (Manual) Lymphocytes % (Manual) Seg Neutrophils # Man Lymphocytes # (Manual) Monocytes # (Manual) PT INR D-Dimer ABG pH ABG pO2 ABG HCO3 ABG O2 Saturation ABG Base Excess ABG Hemoglobin Oxyhemoglobin Sodium Potassium Chloride Carbon Dioxide BUN Creatinine Glucose POC Glucose 107 H 110 H Lactic Acid Calcium Phosphorus Magnesium AST ALT Alkaline Phosphatase Lactate Dehydrogenase Troponin T C-Reactive Protein NT-Pro-B Natriuret Pep Total Protein Albumin LDL Cholesterol Direct Vitamin B12 Crossmatch 12/05/21 12/06/21 12/06/21 23:39 04:25 04:25 WBC RBC 2.95 L Hgb 7.9 L Hct 24.7 L MCV MCH 27 L MCHC RDW 20.9 H Plt Count Seg Neuts % (Manual) Lymphocytes % (Manual) Seg Neutrophils # Man Lymphocytes # (Manual) Monocytes # (Manual) PT INR D-Dimer ABG pH ABG pO2 ABG HCO3 ABG O2 Saturation ABG Base Excess ABG Hemoglobin Oxyhemoglobin Sodium Potassium Chloride Carbon Dioxide BUN 22 H Creatinine 0.5 L Glucose 136 H POC Glucose 118 H Lactic Acid Calcium 8.2 L Phosphorus Magnesium AST ALT Alkaline Phosphatase Lactate Dehydrogenase Troponin T C-Reactive Protein NT-Pro-B Natriuret Pep Total Protein Albumin LDL Cholesterol Direct Vitamin B12 Crossmatch 12/06/21 12/06/21 12/07/21 05:28 11:27 04:00 WBC RBC Hgb 7.2 L Hct 21.8 L MCV MCH MCHC RDW Plt Count Seg Neuts % (Manual) Lymphocytes % (Manual) Seg Neutrophils # Man Lymphocytes # (Manual) Monocytes # (Manual) PT INR D-Dimer ABG pH ABG pO2 ABG HCO3 ABG O2 Saturation ABG Base Excess ABG Hemoglobin Oxyhemoglobin Sodium Potassium Chloride Carbon Dioxide BUN Creatinine Glucose POC Glucose 142 H 126 H Lactic Acid Calcium Phosphorus Magnesium AST ALT Alkaline Phosphatase Lactate Dehydrogenase Troponin T C-Reactive Protein NT-Pro-B Natriuret Pep Total Protein Albumin LDL Cholesterol Direct Vitamin B12 Crossmatch 12/07/21 12/07/21 12/07/21 04:00 05:30 11:12 WBC RBC Hgb Hct MCV MCH MCHC RDW Plt Count Seg Neuts % (Manual) Lymphocytes % (Manual) Seg Neutrophils # Man Lymphocytes # (Manual) Monocytes # (Manual) PT INR D-Dimer ABG pH ABG pO2 ABG HCO3 ABG O2 Saturation ABG Base Excess ABG Hemoglobin Oxyhemoglobin Sodium Potassium Chloride Carbon Dioxide BUN 22 H Creatinine Glucose 119 H POC Glucose 121 H 124 H Lactic Acid Calcium 8.0 L Phosphorus Magnesium AST ALT Alkaline Phosphatase Lactate Dehydrogenase Troponin T C-Reactive Protein NT-Pro-B Natriuret Pep Total Protein Albumin LDL Cholesterol Direct Vitamin B12 Crossmatch 12/08/21 12/08/21 12/08/21 04:00 04:00 05:39 WBC RBC 2.81 L Hgb 7.7 L Hct 23.5 L MCV MCH MCHC RDW 21.2 H Plt Count Seg Neuts % (Manual) Lymphocytes % (Manual) Seg Neutrophils # Man Lymphocytes # (Manual) Monocytes # (Manual) PT INR D-Dimer ABG pH ABG pO2 ABG HCO3 ABG O2 Saturation ABG Base Excess ABG Hemoglobin Oxyhemoglobin Sodium 135 L Potassium Chloride Carbon Dioxide BUN 23 H Creatinine Glucose 109 H POC Glucose 112 H Lactic Acid Calcium Phosphorus Magnesium AST ALT Alkaline Phosphatase Lactate Dehydrogenase Troponin T C-Reactive Protein NT-Pro-B Natriuret Pep Total Protein Albumin LDL Cholesterol Direct Vitamin B12 Crossmatch 12/08/21 12/09/21 12/09/21 11:03 04:20 04:20 WBC RBC 2.67 L Hgb 7.6 L Hct 22.1 L MCV MCH MCHC RDW 20.8 H Plt Count Seg Neuts % (Manual) Lymphocytes % (Manual) Seg Neutrophils # Man Lymphocytes # (Manual) Monocytes # (Manual) PT INR D-Dimer ABG pH ABG pO2 ABG HCO3 ABG O2 Saturation ABG Base Excess ABG Hemoglobin Oxyhemoglobin Sodium 135 L Potassium Chloride 97.8 L Carbon Dioxide BUN 26 H Creatinine Glucose 119 H POC Glucose 108 H Lactic Acid Calcium 7.7 L Phosphorus Magnesium AST ALT Alkaline Phosphatase Lactate Dehydrogenase Troponin T C-Reactive Protein NT-Pro-B Natriuret Pep Total Protein Albumin LDL Cholesterol Direct Vitamin B12 Crossmatch 12/09/21 12/10/21 12/10/21 11:26 04:33 11:12 WBC RBC Hgb Hct MCV MCH MCHC RDW Plt Count Seg Neuts % (Manual) Lymphocytes % (Manual) Seg Neutrophils # Man Lymphocytes # (Manual) Monocytes # (Manual) PT INR D-Dimer ABG pH ABG pO2 ABG HCO3 ABG O2 Saturation ABG Base Excess ABG Hemoglobin Oxyhemoglobin Sodium 136 L Potassium Chloride Carbon Dioxide BUN 27 H Creatinine Glucose 117 H POC Glucose 110 H 117 H Lactic Acid Calcium 8.2 L Phosphorus Magnesium AST ALT Alkaline Phosphatase Lactate Dehydrogenase Troponin T C-Reactive Protein NT-Pro-B Natriuret Pep Total Protein Albumin LDL Cholesterol Direct Vitamin B12 Crossmatch 12/10/21 12/10/21 12/11/21 16:02 23:31 04:35 WBC RBC 2.57 L Hgb 7.0 L Hct 21.4 L MCV MCH 27 L MCHC RDW 21.1 H Plt Count Seg Neuts % (Manual) Lymphocytes % (Manual) Seg Neutrophils # Man Lymphocytes # (Manual) Monocytes # (Manual) PT INR D-Dimer ABG pH ABG pO2 ABG HCO3 ABG O2 Saturation ABG Base Excess ABG Hemoglobin Oxyhemoglobin Sodium Potassium Chloride Carbon Dioxide BUN Creatinine Glucose POC Glucose 137 H 111 H Lactic Acid Calcium Phosphorus Magnesium AST ALT Alkaline Phosphatase Lactate Dehydrogenase Troponin T C-Reactive Protein NT-Pro-B Natriuret Pep Total Protein Albumin LDL Cholesterol Direct Vitamin B12 Crossmatch 12/11/21 12/11/21 12/11/21 04:35 12:46 16:07 WBC RBC Hgb Hct MCV MCH MCHC RDW Plt Count Seg Neuts % (Manual) Lymphocytes % (Manual) Seg Neutrophils # Man Lymphocytes # (Manual) Monocytes # (Manual) PT INR D-Dimer ABG pH ABG pO2 ABG HCO3 ABG O2 Saturation ABG Base Excess ABG Hemoglobin Oxyhemoglobin Sodium 136 L Potassium Chloride Carbon Dioxide BUN 27 H Creatinine Glucose 112 H POC Glucose 115 H 111 H Lactic Acid Calcium 7.6 L Phosphorus Magnesium AST ALT Alkaline Phosphatase Lactate Dehydrogenase Troponin T C-Reactive Protein NT-Pro-B Natriuret Pep Total Protein Albumin LDL Cholesterol Direct Vitamin B12 Crossmatch 12/11/21 12/12/21 12/12/21 23:42 04:30 04:30 WBC RBC 2.60 L Hgb 7.1 L Hct 21.5 L MCV MCH 27 L MCHC RDW 20.3 H Plt Count Seg Neuts % (Manual) Lymphocytes % (Manual) Seg Neutrophils # Man Lymphocytes # (Manual) Monocytes # (Manual) PT INR D-Dimer ABG pH ABG pO2 ABG HCO3 ABG O2 Saturation ABG Base Excess ABG Hemoglobin Oxyhemoglobin Sodium 135 L Potassium Chloride 97.9 L Carbon Dioxide BUN 26 H Creatinine 0.5 L Glucose 138 H POC Glucose 115 H Lactic Acid Calcium 8.2 L Phosphorus Magnesium AST ALT Alkaline Phosphatase Lactate Dehydrogenase Troponin T C-Reactive Protein NT-Pro-B Natriuret Pep Total Protein Albumin LDL Cholesterol Direct Vitamin B12 Crossmatch 12/12/21 12/12/21 12/12/21 04:30 05:10 11:51 WBC RBC Hgb Hct MCV MCH MCHC RDW Plt Count Seg Neuts % (Manual) Lymphocytes % (Manual) Seg Neutrophils # Man Lymphocytes # (Manual) Monocytes # (Manual) PT INR D-Dimer ABG pH ABG pO2 ABG HCO3 ABG O2 Saturation ABG Base Excess ABG Hemoglobin Oxyhemoglobin Sodium Potassium Chloride Carbon Dioxide BUN Creatinine Glucose POC Glucose 119 H 119 H Lactic Acid Calcium Phosphorus Magnesium AST ALT Alkaline Phosphatase Lactate Dehydrogenase Troponin T C-Reactive Protein NT-Pro-B Natriuret Pep Total Protein Albumin LDL Cholesterol Direct Vitamin B12 Crossmatch See Detail 12/13/21 12/13/21 12/13/21 00:52 04:00 04:00 WBC RBC 2.73 L Hgb 7.4 L Hct 22.8 L MCV MCH 27 L MCHC RDW 20.5 H Plt Count Seg Neuts % (Manual) Lymphocytes % (Manual) Seg Neutrophils # Man Lymphocytes # (Manual) Monocytes # (Manual) PT INR D-Dimer ABG pH ABG pO2 ABG HCO3 ABG O2 Saturation ABG Base Excess ABG Hemoglobin Oxyhemoglobin Sodium 134 L Potassium Chloride 96.7 L Carbon Dioxide BUN 23 H Creatinine 0.5 L Glucose 131 H POC Glucose 131 H Lactic Acid Calcium 8.1 L Phosphorus Magnesium AST ALT Alkaline Phosphatase Lactate Dehydrogenase Troponin T C-Reactive Protein NT-Pro-B Natriuret Pep Total Protein Albumin LDL Cholesterol Direct Vitamin B12 Crossmatch 12/13/21 12/13/21 12/13/21 05:23 12:11 17:18 WBC RBC Hgb Hct MCV MCH MCHC RDW Plt Count Seg Neuts % (Manual) Lymphocytes % (Manual) Seg Neutrophils # Man Lymphocytes # (Manual) Monocytes # (Manual) PT INR D-Dimer ABG pH ABG pO2 ABG HCO3 ABG O2 Saturation ABG Base Excess ABG Hemoglobin Oxyhemoglobin Sodium Potassium Chloride Carbon Dioxide BUN Creatinine Glucose POC Glucose 121 H 143 H 148 H Lactic Acid Calcium Phosphorus Magnesium AST ALT Alkaline Phosphatase Lactate Dehydrogenase Troponin T C-Reactive Protein NT-Pro-B Natriuret Pep Total Protein Albumin LDL Cholesterol Direct Vitamin B12 Crossmatch 12/14/21 12/14/21 12/14/21 00:54 04:20 04:20 WBC RBC 2.39 L Hgb 6.5 L Hct 20.3 L MCV MCH 27 L MCHC RDW 20.3 H Plt Count Seg Neuts % (Manual) Lymphocytes % (Manual) Seg Neutrophils # Man Lymphocytes # (Manual) Monocytes # (Manual) PT INR D-Dimer ABG pH ABG pO2 ABG HCO3 ABG O2 Saturation ABG Base Excess ABG Hemoglobin Oxyhemoglobin Sodium 130 L Potassium Chloride 93.5 L Carbon Dioxide BUN 25 H Creatinine Glucose 123 H POC Glucose 123 H Lactic Acid Calcium 8.0 L Phosphorus Magnesium AST ALT Alkaline Phosphatase Lactate Dehydrogenase Troponin T C-Reactive Protein NT-Pro-B Natriuret Pep Total Protein Albumin LDL Cholesterol Direct Vitamin B12 Crossmatch 12/14/21 12/14/21 12/14/21 05:06 08:17 10:30 WBC RBC Hgb Hct MCV MCH MCHC RDW Plt Count Seg Neuts % (Manual) Lymphocytes % (Manual) Seg Neutrophils # Man Lymphocytes # (Manual) Monocytes # (Manual) PT INR D-Dimer ABG pH ABG pO2 ABG HCO3 ABG O2 Saturation ABG Base Excess ABG Hemoglobin Oxyhemoglobin Sodium Potassium Chloride Carbon Dioxide BUN Creatinine Glucose POC Glucose 131 H 119 H Lactic Acid Calcium Phosphorus Magnesium AST ALT Alkaline Phosphatase Lactate Dehydrogenase Troponin T C-Reactive Protein NT-Pro-B Natriuret Pep Total Protein Albumin LDL Cholesterol Direct Vitamin B12 Crossmatch See Detail 12/14/21 12/14/21 12/14/21 12:15 16:37 23:27 WBC RBC Hgb Hct MCV MCH MCHC RDW Plt Count Seg Neuts % (Manual) Lymphocytes % (Manual) Seg Neutrophils # Man Lymphocytes # (Manual) Monocytes # (Manual) PT INR D-Dimer ABG pH ABG pO2 ABG HCO3 ABG O2 Saturation ABG Base Excess ABG Hemoglobin Oxyhemoglobin Sodium Potassium Chloride Carbon Dioxide BUN Creatinine Glucose POC Glucose 147 H 141 H 130 H Lactic Acid Calcium Phosphorus Magnesium AST ALT Alkaline Phosphatase Lactate Dehydrogenase Troponin T C-Reactive Protein NT-Pro-B Natriuret Pep Total Protein Albumin LDL Cholesterol Direct Vitamin B12 Crossmatch 12/15/21 12/15/21 12/15/21 05:00 07:00 07:00 WBC 12.3 H RBC 3.27 L Hgb 8.8 L Hct 27.5 L D MCV MCH 27 L MCHC RDW 19.0 H Plt Count Seg Neuts % (Manual) Lymphocytes % (Manual) Seg Neutrophils # Man Lymphocytes # (Manual) Monocytes # (Manual) PT INR D-Dimer ABG pH ABG pO2 ABG HCO3 ABG O2 Saturation ABG Base Excess ABG Hemoglobin Oxyhemoglobin Sodium 134 L Potassium Chloride 95.7 L Carbon Dioxide BUN 28 H Creatinine Glucose 129 H POC Glucose 129 H Lactic Acid Calcium 8.2 L Phosphorus Magnesium AST ALT Alkaline Phosphatase Lactate Dehydrogenase Troponin T C-Reactive Protein NT-Pro-B Natriuret Pep Total Protein Albumin LDL Cholesterol Direct Vitamin B12 Crossmatch 12/15/21 12/15/21 12/15/21 11:18 16:00 23:39 WBC RBC Hgb Hct MCV MCH MCHC RDW Plt Count Seg Neuts % (Manual) Lymphocytes % (Manual) Seg Neutrophils # Man Lymphocytes # (Manual) Monocytes # (Manual) PT INR D-Dimer ABG pH ABG pO2 ABG HCO3 ABG O2 Saturation ABG Base Excess ABG Hemoglobin Oxyhemoglobin Sodium Potassium Chloride Carbon Dioxide BUN Creatinine Glucose POC Glucose 139 H 137 H 146 H Lactic Acid Calcium Phosphorus Magnesium AST ALT Alkaline Phosphatase Lactate Dehydrogenase Troponin T C-Reactive Protein NT-Pro-B Natriuret Pep Total Protein Albumin LDL Cholesterol Direct Vitamin B12 Crossmatch 12/16/21 12/16/21 12/16/21 05:24 10:21 10:21 WBC 15.3 H RBC 3.24 L Hgb 8.9 L Hct 27.7 L MCV MCH MCHC RDW 19.0 H Plt Count Seg Neuts % (Manual) Lymphocytes % (Manual) Seg Neutrophils # Man Lymphocytes # (Manual) Monocytes # (Manual) PT INR D-Dimer ABG pH ABG pO2 ABG HCO3 ABG O2 Saturation ABG Base Excess ABG Hemoglobin Oxyhemoglobin Sodium 131 L Potassium 3.5 L Chloride 92.7 L Carbon Dioxide BUN 36 H Creatinine Glucose 160 H POC Glucose 121 H Lactic Acid Calcium Phosphorus Magnesium 1.60 L AST ALT Alkaline Phosphatase Lactate Dehydrogenase Troponin T C-Reactive Protein NT-Pro-B Natriuret Pep Total Protein Albumin LDL Cholesterol Direct Vitamin B12 Crossmatch 12/16/21 12/16/21 12/16/21 11:21 18:28 20:52 WBC RBC Hgb Hct MCV MCH MCHC RDW Plt Count Seg Neuts % (Manual) Lymphocytes % (Manual) Seg Neutrophils # Man Lymphocytes # (Manual) Monocytes # (Manual) PT INR D-Dimer ABG pH 7.479 H ABG pO2 79.3 L ABG HCO3 27.3 H ABG O2 Saturation ABG Base Excess 3.6 H ABG Hemoglobin 9.1 L Oxyhemoglobin 94.9 L Sodium Potassium Chloride Carbon Dioxide BUN Creatinine Glucose POC Glucose 153 H 132 H Lactic Acid Calcium Phosphorus Magnesium AST ALT Alkaline Phosphatase Lactate Dehydrogenase Troponin T C-Reactive Protein NT-Pro-B Natriuret Pep Total Protein Albumin LDL Cholesterol Direct Vitamin B12 Crossmatch 12/16/21 12/17/21 12/17/21 23:30 04:25 04:25 WBC 12.3 H RBC 2.16 L Hgb 6.0 L Hct 18.1 L* D MCV MCH MCHC RDW 19.4 H Plt Count Seg Neuts % (Manual) Lymphocytes % (Manual) Seg Neutrophils # Man Lymphocytes # (Manual) Monocytes # (Manual) PT INR D-Dimer ABG pH ABG pO2 ABG HCO3 ABG O2 Saturation ABG Base Excess ABG Hemoglobin Oxyhemoglobin Sodium 132 L Potassium 3.2 L Chloride 112.0 H Carbon Dioxide BUN 32 H Creatinine Glucose 122 H POC Glucose 137 H Lactic Acid Calcium 6.8 L D Phosphorus Magnesium AST ALT Alkaline Phosphatase Lactate Dehydrogenase Troponin T C-Reactive Protein NT-Pro-B Natriuret Pep Total Protein Albumin LDL Cholesterol Direct Vitamin B12 Crossmatch 12/17/21 12/17/21 12/17/21 05:30 11:49 14:45 WBC RBC Hgb 9.7 L D Hct MCV MCH MCHC RDW Plt Count Seg Neuts % (Manual) Lymphocytes % (Manual) Seg Neutrophils # Man Lymphocytes # (Manual) Monocytes # (Manual) PT INR D-Dimer ABG pH ABG pO2 ABG HCO3 ABG O2 Saturation ABG Base Excess ABG Hemoglobin Oxyhemoglobin Sodium Potassium Chloride Carbon Dioxide BUN Creatinine Glucose POC Glucose 137 H 143 H Lactic Acid Calcium Phosphorus Magnesium AST ALT Alkaline Phosphatase Lactate Dehydrogenase Troponin T C-Reactive Protein NT-Pro-B Natriuret Pep Total Protein Albumin LDL Cholesterol Direct Vitamin B12 Crossmatch 12/17/21 12/18/21 12/18/21 17:01 05:04 05:04 WBC 13.8 H RBC 3.44 L Hgb 9.9 L Hct 28.8 L MCV MCH MCHC RDW 18.1 H Plt Count Seg Neuts % (Manual) Lymphocytes % (Manual) Seg Neutrophils # Man Lymphocytes # (Manual) Monocytes # (Manual) PT INR D-Dimer ABG pH ABG pO2 ABG HCO3 ABG O2 Saturation ABG Base Excess ABG Hemoglobin Oxyhemoglobin Sodium 132 L Potassium Chloride 97.4 L Carbon Dioxide BUN 38 H Creatinine Glucose 134 H POC Glucose 132 H Lactic Acid Calcium Phosphorus Magnesium AST ALT Alkaline Phosphatase Lactate Dehydrogenase Troponin T C-Reactive Protein NT-Pro-B Natriuret Pep Total Protein Albumin LDL Cholesterol Direct Vitamin B12 Crossmatch 12/18/21 12/18/21 12/18/21 05:28 10:57 16:27 WBC RBC Hgb Hct MCV MCH MCHC RDW Plt Count Seg Neuts % (Manual) Lymphocytes % (Manual) Seg Neutrophils # Man Lymphocytes # (Manual) Monocytes # (Manual) PT INR D-Dimer ABG pH ABG pO2 ABG HCO3 ABG O2 Saturation ABG Base Excess ABG Hemoglobin Oxyhemoglobin Sodium Potassium Chloride Carbon Dioxide BUN Creatinine Glucose POC Glucose 118 H 132 H 130 H Lactic Acid Calcium Phosphorus Magnesium AST ALT Alkaline Phosphatase Lactate Dehydrogenase Troponin T C-Reactive Protein NT-Pro-B Natriuret Pep Total Protein Albumin LDL Cholesterol Direct Vitamin B12 Crossmatch 12/19/21 12/19/21 12/19/21 00:02 04:41 04:41 WBC 16.0 H RBC 3.45 L Hgb 9.7 L Hct 29.1 L MCV MCH MCHC RDW 17.8 H Plt Count Seg Neuts % (Manual) Lymphocytes % (Manual) Seg Neutrophils # Man Lymphocytes # (Manual) Monocytes # (Manual) PT INR D-Dimer ABG pH ABG pO2 ABG HCO3 ABG O2 Saturation ABG Base Excess ABG Hemoglobin Oxyhemoglobin Sodium 133 L Potassium Chloride 97.9 L Carbon Dioxide BUN 36 H Creatinine 0.5 L Glucose 126 H POC Glucose 127 H Lactic Acid Calcium 8.3 L Phosphorus Magnesium AST ALT Alkaline Phosphatase Lactate Dehydrogenase Troponin T C-Reactive Protein NT-Pro-B Natriuret Pep Total Protein Albumin LDL Cholesterol Direct Vitamin B12 Crossmatch 12/19/21 12/19/21 12/19/21 05:26 12:20 16:43 WBC RBC Hgb Hct MCV MCH MCHC RDW Plt Count Seg Neuts % (Manual) Lymphocytes % (Manual) Seg Neutrophils # Man Lymphocytes # (Manual) Monocytes # (Manual) PT INR D-Dimer ABG pH ABG pO2 ABG HCO3 ABG O2 Saturation ABG Base Excess ABG Hemoglobin Oxyhemoglobin Sodium Potassium Chloride Carbon Dioxide BUN Creatinine Glucose POC Glucose 119 H 145 H 126 H Lactic Acid Calcium Phosphorus Magnesium AST ALT Alkaline Phosphatase Lactate Dehydrogenase Troponin T C-Reactive Protein NT-Pro-B Natriuret Pep Total Protein Albumin LDL Cholesterol Direct Vitamin B12 Crossmatch 12/19/21 12/20/21 12/20/21 23:30 04:54 04:54 WBC 12.3 H RBC 3.54 L Hgb 10.0 L Hct 29.5 L MCV MCH MCHC RDW 17.8 H Plt Count Seg Neuts % (Manual) 88.0 H Lymphocytes % (Manual) 6.0 L Seg Neutrophils # Man 10.8 H Lymphocytes # (Manual) 0.7 L Monocytes # (Manual) PT INR D-Dimer ABG pH ABG pO2 ABG HCO3 ABG O2 Saturation ABG Base Excess ABG Hemoglobin Oxyhemoglobin Sodium 131 L Potassium Chloride 96.2 L Carbon Dioxide BUN 36 H Creatinine 0.5 L Glucose 130 H POC Glucose 117 H Lactic Acid Calcium Phosphorus Magnesium AST ALT Alkaline Phosphatase Lactate Dehydrogenase Troponin T C-Reactive Protein NT-Pro-B Natriuret Pep Total Protein Albumin LDL Cholesterol Direct Vitamin B12 Crossmatch 12/20/21 12/20/21 12/20/21 05:20 11:51 17:30 WBC RBC Hgb Hct MCV MCH MCHC RDW Plt Count Seg Neuts % (Manual) Lymphocytes % (Manual) Seg Neutrophils # Man Lymphocytes # (Manual) Monocytes # (Manual) PT INR D-Dimer ABG pH ABG pO2 ABG HCO3 ABG O2 Saturation ABG Base Excess ABG Hemoglobin Oxyhemoglobin Sodium Potassium Chloride Carbon Dioxide BUN Creatinine Glucose POC Glucose 126 H 119 H 127 H Lactic Acid Calcium Phosphorus Magnesium AST ALT Alkaline Phosphatase Lactate Dehydrogenase Troponin T C-Reactive Protein NT-Pro-B Natriuret Pep Total Protein Albumin LDL Cholesterol Direct Vitamin B12 Crossmatch 12/21/21 12/21/21 12/21/21 00:45 04:21 04:21 WBC RBC 3.47 L Hgb 9.4 L Hct 29.2 L MCV MCH 27 L MCHC RDW 18.1 H Plt Count Seg Neuts % (Manual) Lymphocytes % (Manual) Seg Neutrophils # Man Lymphocytes # (Manual) Monocytes # (Manual) PT INR D-Dimer ABG pH ABG pO2 ABG HCO3 ABG O2 Saturation ABG Base Excess ABG Hemoglobin Oxyhemoglobin Sodium 134 L Potassium Chloride Carbon Dioxide BUN 35 H Creatinine 0.5 L Glucose 122 H POC Glucose 125 H Lactic Acid Calcium 8.2 L Phosphorus Magnesium AST ALT Alkaline Phosphatase Lactate Dehydrogenase Troponin T C-Reactive Protein NT-Pro-B Natriuret Pep Total Protein Albumin LDL Cholesterol Direct Vitamin B12 Crossmatch 12/21/21 12/21/21 12/21/21 05:38 11:29 16:16 WBC RBC Hgb Hct MCV MCH MCHC RDW Plt Count Seg Neuts % (Manual) Lymphocytes % (Manual) Seg Neutrophils # Man Lymphocytes # (Manual) Monocytes # (Manual) PT INR D-Dimer ABG pH ABG pO2 ABG HCO3 ABG O2 Saturation ABG Base Excess ABG Hemoglobin Oxyhemoglobin Sodium Potassium Chloride Carbon Dioxide BUN Creatinine Glucose POC Glucose 127 H 121 H 113 H Lactic Acid Calcium Phosphorus Magnesium AST ALT Alkaline Phosphatase Lactate Dehydrogenase Troponin T C-Reactive Protein NT-Pro-B Natriuret Pep Total Protein Albumin LDL Cholesterol Direct Vitamin B12 Crossmatch 12/22/21 12/22/21 12/23/21 04:58 04:58 06:40 WBC 11.5 H RBC 3.43 L Hgb 9.8 L Hct 28.7 L MCV MCH MCHC RDW 18.5 H 17.9 H Plt Count Seg Neuts % (Manual) Lymphocytes % (Manual) Seg Neutrophils # Man Lymphocytes # (Manual) Monocytes # (Manual) PT INR D-Dimer ABG pH ABG pO2 ABG HCO3 ABG O2 Saturation ABG Base Excess ABG Hemoglobin Oxyhemoglobin Sodium 130 L Potassium Chloride 97.8 L Carbon Dioxide BUN 31 H Creatinine 0.5 L Glucose 122 H POC Glucose Lactic Acid Calcium 7.9 L Phosphorus Magnesium AST ALT Alkaline Phosphatase Lactate Dehydrogenase Troponin T C-Reactive Protein NT-Pro-B Natriuret Pep Total Protein Albumin LDL Cholesterol Direct Vitamin B12 Crossmatch 12/23/21 12/23/21 12/24/21 06:40 23:25 04:24 WBC 11.7 H RBC Hgb 9.8 L Hct MCV MCH 26 L MCHC RDW 18.1 H Plt Count Seg Neuts % (Manual) Lymphocytes % (Manual) Seg Neutrophils # Man Lymphocytes # (Manual) Monocytes # (Manual) PT INR D-Dimer ABG pH ABG pO2 ABG HCO3 ABG O2 Saturation ABG Base Excess ABG Hemoglobin Oxyhemoglobin Sodium 136 L Potassium Chloride Carbon Dioxide BUN 27 H Creatinine 0.4 L Glucose 107 H POC Glucose 110 H Lactic Acid Calcium 8.1 L Phosphorus Magnesium AST ALT Alkaline Phosphatase Lactate Dehydrogenase Troponin T C-Reactive Protein NT-Pro-B Natriuret Pep Total Protein Albumin LDL Cholesterol Direct Vitamin B12 Crossmatch 12/24/21 12/24/21 12/24/21 04:24 11:08 15:45 WBC RBC Hgb Hct MCV MCH MCHC RDW Plt Count Seg Neuts % (Manual) Lymphocytes % (Manual) Seg Neutrophils # Man Lymphocytes # (Manual) Monocytes # (Manual) PT INR D-Dimer ABG pH ABG pO2 ABG HCO3 ABG O2 Saturation ABG Base Excess ABG Hemoglobin Oxyhemoglobin Sodium 132 L Potassium Chloride Carbon Dioxide BUN 27 H Creatinine 0.3 L Glucose 108 H POC Glucose 116 H 107 H Lactic Acid Calcium Phosphorus Magnesium AST ALT Alkaline Phosphatase Lactate Dehydrogenase Troponin T C-Reactive Protein NT-Pro-B Natriuret Pep Total Protein Albumin LDL Cholesterol Direct Vitamin B12 Crossmatch 12/24/21 12/25/21 12/25/21 23:43 05:29 11:48 WBC RBC Hgb Hct MCV MCH MCHC RDW Plt Count Seg Neuts % (Manual) Lymphocytes % (Manual) Seg Neutrophils # Man Lymphocytes # (Manual) Monocytes # (Manual) PT INR D-Dimer ABG pH ABG pO2 ABG HCO3 ABG O2 Saturation ABG Base Excess ABG Hemoglobin Oxyhemoglobin Sodium Potassium Chloride Carbon Dioxide BUN Creatinine Glucose POC Glucose 123 H 107 H 119 H Lactic Acid Calcium Phosphorus Magnesium AST ALT Alkaline Phosphatase Lactate Dehydrogenase Troponin T C-Reactive Protein NT-Pro-B Natriuret Pep Total Protein Albumin LDL Cholesterol Direct Vitamin B12 Crossmatch 12/26/21 12/26/21 12/26/21 00:06 05:56 07:51 WBC 11.4 H RBC 3.40 L Hgb 9.3 L Hct 28.3 L MCV MCH 27 L MCHC RDW 18.2 H Plt Count Seg Neuts % (Manual) Lymphocytes % (Manual) Seg Neutrophils # Man Lymphocytes # (Manual) Monocytes # (Manual) PT INR D-Dimer ABG pH ABG pO2 ABG HCO3 ABG O2 Saturation ABG Base Excess ABG Hemoglobin Oxyhemoglobin Sodium Potassium Chloride Carbon Dioxide BUN Creatinine Glucose POC Glucose 133 H 107 H Lactic Acid Calcium Phosphorus Magnesium AST ALT Alkaline Phosphatase Lactate Dehydrogenase Troponin T C-Reactive Protein NT-Pro-B Natriuret Pep Total Protein Albumin LDL Cholesterol Direct Vitamin B12 Crossmatch 12/26/21 12/26/21 12/26/21 07:51 11:43 17:06 WBC RBC Hgb Hct MCV MCH MCHC RDW Plt Count Seg Neuts % (Manual) Lymphocytes % (Manual) Seg Neutrophils # Man Lymphocytes # (Manual) Monocytes # (Manual) PT INR D-Dimer ABG pH ABG pO2 ABG HCO3 ABG O2 Saturation ABG Base Excess ABG Hemoglobin Oxyhemoglobin Sodium 136 L Potassium Chloride Carbon Dioxide BUN 25 H Creatinine 0.3 L Glucose 131 H POC Glucose 119 H 128 H Lactic Acid Calcium Phosphorus Magnesium AST ALT Alkaline Phosphatase Lactate Dehydrogenase Troponin T C-Reactive Protein NT-Pro-B Natriuret Pep Total Protein Albumin LDL Cholesterol Direct Vitamin B12 Crossmatch 12/28/21 12/28/21 12/29/21 09:05 09:05 04:40 WBC RBC 3.19 L Hgb 8.9 L Hct 26.4 L MCV MCH 27 L MCHC RDW 18.4 H 17.9 H Plt Count Seg Neuts % (Manual) Lymphocytes % (Manual) Seg Neutrophils # Man Lymphocytes # (Manual) Monocytes # (Manual) PT INR D-Dimer ABG pH ABG pO2 ABG HCO3 ABG O2 Saturation ABG Base Excess ABG Hemoglobin Oxyhemoglobin Sodium 135 L Potassium Chloride 97.8 L Carbon Dioxide BUN 18 H Creatinine 0.3 L Glucose POC Glucose Lactic Acid Calcium Phosphorus Magnesium AST ALT Alkaline Phosphatase Lactate Dehydrogenase Troponin T C-Reactive Protein NT-Pro-B Natriuret Pep Total Protein Albumin LDL Cholesterol Direct Vitamin B12 Crossmatch 12/29/21 12/29/21 12/30/21 04:40 12:47 04:05 WBC RBC 3.29 L Hgb 8.7 L Hct 27.6 L MCV MCH 27 L MCHC RDW 17.6 H Plt Count Seg Neuts % (Manual) Lymphocytes % (Manual) Seg Neutrophils # Man Lymphocytes # (Manual) Monocytes # (Manual) PT INR D-Dimer ABG pH ABG pO2 ABG HCO3 ABG O2 Saturation ABG Base Excess ABG Hemoglobin Oxyhemoglobin Sodium 136 L Potassium Chloride Carbon Dioxide BUN Creatinine 0.3 L Glucose POC Glucose 67 L Lactic Acid Calcium 8.3 L Phosphorus Magnesium AST ALT Alkaline Phosphatase Lactate Dehydrogenase Troponin T C-Reactive Protein NT-Pro-B Natriuret Pep Total Protein Albumin LDL Cholesterol Direct Vitamin B12 Crossmatch 12/30/21 12/31/21 12/31/21 04:05 00:07 04:00 WBC RBC 3.05 L Hgb 8.5 L Hct 25.5 L MCV MCH MCHC RDW 18.2 H Plt Count Seg Neuts % (Manual) Lymphocytes % (Manual) Seg Neutrophils # Man Lymphocytes # (Manual) Monocytes # (Manual) PT INR D-Dimer ABG pH ABG pO2 ABG HCO3 ABG O2 Saturation ABG Base Excess ABG Hemoglobin Oxyhemoglobin Sodium 136 L Potassium 3.5 L Chloride Carbon Dioxide BUN Creatinine 0.4 L Glucose POC Glucose 139 H Lactic Acid Calcium Phosphorus Magnesium 1.50 L AST ALT Alkaline Phosphatase Lactate Dehydrogenase Troponin T C-Reactive Protein NT-Pro-B Natriuret Pep Total Protein Albumin LDL Cholesterol Direct Vitamin B12 Crossmatch 12/31/21 12/31/21 12/31/21 04:00 04:52 11:23 WBC RBC Hgb Hct MCV MCH MCHC RDW Plt Count Seg Neuts % (Manual) Lymphocytes % (Manual) Seg Neutrophils # Man Lymphocytes # (Manual) Monocytes # (Manual) PT INR D-Dimer ABG pH ABG pO2 ABG HCO3 ABG O2 Saturation ABG Base Excess ABG Hemoglobin Oxyhemoglobin Sodium Potassium Chloride Carbon Dioxide BUN 19 H Creatinine 0.4 L Glucose 116 H POC Glucose 121 H 116 H Lactic Acid Calcium Phosphorus Magnesium AST ALT Alkaline Phosphatase Lactate Dehydrogenase Troponin T C-Reactive Protein NT-Pro-B Natriuret Pep Total Protein Albumin LDL Cholesterol Direct Vitamin B12 Crossmatch 12/31/21 01/01/22 01/01/22 17:42 04:31 04:31 WBC RBC 2.83 L Hgb 7.7 L Hct 23.2 L MCV MCH 27 L MCHC RDW 18.3 H Plt Count Seg Neuts % (Manual) Lymphocytes % (Manual) Seg Neutrophils # Man Lymphocytes # (Manual) Monocytes # (Manual) PT INR D-Dimer ABG pH ABG pO2 ABG HCO3 ABG O2 Saturation ABG Base Excess ABG Hemoglobin Oxyhemoglobin Sodium 135 L Potassium Chloride 97.7 L Carbon Dioxide BUN 21 H Creatinine 0.5 L Glucose 127 H POC Glucose 107 H Lactic Acid Calcium 8.0 L Phosphorus Magnesium AST ALT Alkaline Phosphatase Lactate Dehydrogenase Troponin T C-Reactive Protein NT-Pro-B Natriuret Pep Total Protein Albumin LDL Cholesterol Direct Vitamin B12 Crossmatch 01/01/22 01/01/22 05:24 11:25 WBC RBC Hgb Hct MCV MCH MCHC RDW Plt Count Seg Neuts % (Manual) Lymphocytes % (Manual) Seg Neutrophils # Man Lymphocytes # (Manual) Monocytes # (Manual) PT INR D-Dimer ABG pH ABG pO2 ABG HCO3 ABG O2 Saturation ABG Base Excess ABG Hemoglobin Oxyhemoglobin Sodium Potassium Chloride Carbon Dioxide BUN Creatinine Glucose POC Glucose 124 H 140 H Lactic Acid Calcium Phosphorus Magnesium AST ALT Alkaline Phosphatase Lactate Dehydrogenase Troponin T C-Reactive Protein NT-Pro-B Natriuret Pep Total Protein Albumin LDL Cholesterol Direct Vitamin B12 Crossmatch Allied health notes reviewed: RT
[2022-01-01] MEDS: VANCOMYCIN/NS 1 GM/250 ML 1 GM/250 ML BAG IV SCH (18:18)
[2022-01-01] MEDS: PRAVASTATIN 20 MG TAB FEEDTUBE SCH (21:00)
[2022-01-01] MEDS: MELATONIN 5 MG TAB PO SCH (21:02)
[2022-01-01] MEDS: traZODone 50 MG TAB PO SCH (21:09)
[2022-01-02] MEDS: SUCRALFATE 1 GM/10 ML ORAL LIQD FEEDTUBE SCH ×4 (00:55→17:26)
[2022-01-02 04:52] LABS: Hematocrit 21.5 % (30.3-42.9); Hemoglobin 7.1 gm/dl (10.1-14.3); Mean Corpuscular HGB Conc 33 % (30-34); Mean Corpuscular Volume 84 fl (79-97); Platelet Count 163 K/mm3 (140-440); Red Blood Count 2.57 M/mm3 (3.65-5.03); Red Cell Distribution Width 18.1 % (13.2-15.2)
[2022-01-02 05:10] LABS: Blood Urea Nitrogen 27 mg/dL (7-17); Calcium 8.4 mg/dL (8.4-10.2); Hemolysis Index 3
[2022-01-02 05:15] LABS: BUN/Creatinine Ratio 39
[2022-01-02] MEDS: METOCLOPRAMIDE 10 MG/2 ML INJ IV SCH (05:56)
[2022-01-02] MEDS: LEVOTHYROXINE 125 MCG TAB FEEDTUBE SCH (05:56)
[2022-01-02] MEDS: HYDROcodone/ACETAMINOPHEN 10-325MG TAB FEEDTUBE SCH ×3 (08:35→21:13)
[2022-01-02] MEDS: MIDODRINE 5 MG TAB FEEDTUBE SCH ×3 (08:35→17:26)
[2022-01-02] MEDS ORDERED: POTASSIUM CHLORIDE 20 MEQ PACKET FEEDTUBE SCH ×2 (09:30→22:00)
[2022-01-02] MEDS ORDERED: ALBUMIN HUMAN 25% (25 GM/100 ML) INJ IV SCH (09:30)
[2022-01-02] MEDS ORDERED: FUROSEMIDE 20 MG/2 ML INJ IV SCH (10:00)
[2022-01-02] MEDS: POLYETHYLENE GLYCOL 3350 17 GM POWDER FEEDTUBE SCH (10:03)
[2022-01-02] MEDS: SENNOSIDES ORAL LIQD 8.8 MG/5 ML ORAL LIQD FEEDTUBE SCH ×2 (10:04→21:13)
[2022-01-02] MEDS: busPIRone 5 MG TAB FEEDTUBE SCH ×2 (10:04→21:15)
[2022-01-02] MEDS: SPIRONOLACTONE 25 MG TAB FEEDTUBE SCH (10:04)
[2022-01-02] MEDS: GABAPENTIN 100 MG CAP FEEDTUBE SCH (10:04)
[2022-01-02] MEDS: QUEtiapine 25 MG TAB FEEDTUBE SCH ×2 (10:05→21:13)
[2022-01-02] MEDS: METOPROLOL TARTRATE 25 MG TAB FEEDTUBE SCH ×2 (10:05→21:13)
[2022-01-02] MEDS: LANSOPRAZOLE 30 MG SOLUTAB FEEDTUBE SCH ×2 (10:05→21:36)
[2022-01-02] MEDS: DOCUSATE SODIUM 100 MG/10 ML ORAL LIQD FEEDTUBE SCH ×2 (10:06→21:35)
--- NOTE | 2022-01-02 14:40 | Progress Note ---
<LONNEI MAURICE - Last Filed: 01/02/22 18:19> Assessment and Plan Assessment and plan: This is a 81-year-old female with known history of diabetes mellitus, hypertension, PPM, and arthritis admitted for sepsis and acute hypoxia respiratory failure 2/2 bilateral pneumonia requiring intubation and ventilatory support Hospital Course to date: ------ 12/04: Increased agitation and anxiety overnight, remains on buspar and seroquel, trazadone added to promote rest. Patient is now working with PT, keep patient engage and awake during the day so she can rest at night. No BM for over 5 days, BR was adjusted. Patient did not tolerate PST again yesterday, continue daily PST as tolerated. Continue to titrate pressor for MAP above 65. Pending possible LTAC placement, case management to arrange. 12/05: Still not getting much rest overnight, will add melatonin for sleep. Continue to engage patient during the day and promote rest at night. TF was held due to concern for possible bleeding, H&H remains stable and stools normal this am. Resume TF and continue PPI and carafate. Remains on low dose levophed, titrate as tolerated. Continue daily PST. Possible LTAC placement, awaiting approval. 12/06: [facility] overnight. Patient rested overnight. Continue supportive measures. Daily PST as tolerated. Awaiting possible LTAC placement 12/07: [facility] overnight. Plan for Tpiece trial today. Continue current supportive measures. Possible LTAC placement 12/08: Patient placed on pressure support trial again today, started on Xanax, no acute events reported overnight. Awaiting insurance approval for LTAC. 12/09: Levophed discontinued, LTAC transfer denied, started on midodrine and Lasix, ultrasound chest pending, started on Xanax 0.[address] De León updated family at bedside today. Started on Dilaudid every 3 hours as needed. 12/10: Patient placed on CPAP trial this morning, no acute events reported overnight. Will order ultrasound-guided thoracentesis. 12/11: Patient had a thoracentesis today, will decrease Xanax dosage and continue midodrine and diuresing. Patient failed CPAP today. 12/12: Patient not tolerate CPAP trials today, no acute events reported overnight 12/13: No acute events overnight. continue PSV trials as tolerated. Daughter updated at bedside 12/14: Patient noted to be anemic today, worsened gastric occult. Patient seems to be oversedated therefore Xanax changed to as needed and fentanyl patch discontinued. We will continue to monitor hyponatremia. 12/15: [facility] overnight. s/p 1unit of PRBCs, H&H stable this am, no signs of any active bleeding. Continue daily PST as tolerated. Awaiting placement. 12/16: Hypertensive this am, Midodrine decreased. Continue daily PST. [facility] overnight 12/17: Patient Hgb dropped to 6 this am, no s/s of any active bleeding, VSS. Patient received 1unit of PRBC, will continue to trend H&H. Patient was pancul tured and back on IV Abx due to persistent fevers yesterday. ID is also back on the case. Continue IV Abx per ID and f/u on cultures data for sensitivity. Patient also failed PST yesterday, continue daily PST as tolerated. Electrolytes repleted, repeat labs in the am. 12/18: Patient blood cultures is growing GPC 4 out 4 bottles. PICC line D/Sara, patient is already on IV Abx-cefepine and Vanc and ID is following. Patient remains hemodynamically stable. Daily PST as tolerated adn PRN Benzo for anx iety. 12/19: [facility] overnight. Culture data noted, continue IV Abx per ID. Orders placed for repeat Bculture. Sánchez D/C overnight, patient is voiding. Check bladder scan as needed for retention. Patient failed PST again today. Continue daily PST as tolerated. 12/20: Fevers improved, Cultures +MRSA, on Vanco per ID. Repeat 2D Echo to r/o endocarditis. Patient continue to fail PST, PEEP increased to 8 today. Continue pulmonary hygiene and vent wean per [facility]. Sodium tab added for hyponatremia. 12/21: Remains afebrile, repeat B.culture with NGTD, 2D echo noted with no obvious vegetation noted. Continue IV Vanc per ID. Hyponatremia improved. Tolerating PST this am, Continue daily PST. 12/22: Patient on pressure support trial for approximately 4 hours today, midodrine dosage increased due to hypotension. Lasix discontinued. 12/23: Started on a.m. Seroquel dose, midodrine increased to 10 mg 3 times daily, 500 mL normal saline bolus. 12/24: Seroquel dose changed (25 every morning, 75 nightly). updated at bedside by Dr. De León. CPAP trials as tolerated. Continue vancomycin. Awaiting placement. 12/25: Continue CPAP as tolerated, added gasx for distention. Continue supportive care 12/26: Patient failed PSV this AM. no acute events overnight. 12/27: GI re-consulted due to abdominal distention. No acute events reported overnight. CPAP trials as tolerated. Dr. Mckenna will get a KUB to rule out possible obstruction. 12/28: KUB shows no acute process, CXR shows improvement. CPAP trials as tolerated. 12/29: CT Abd/pelvis noted with moderated bilateral pleural effusion, anasarca, and ascites. X1dose of IV lasix administered. D/w CCM and GI orders plan for thora and paracentesis by IR. Will also start patient on aldactone Qday. Patient is tolerating trickle feeds this am, continue TF and BR adjusted for constipation. Plan of care was discussed with patient and her at the bedside. Thorough discussion on patient's overall poor prognosis and that patient will most likely be vent dependent. Patient's voiced understanding of the info given. All questions and concerns were voiced at this time. 12/30: Patient did not tolerate thoracentesis in IR yesterday due to change in LOC and hypoxia. Plan for possible bedside thoracentesis and paracentesis today. Patient remains afebrile. Patient required watermelon inspector IV abx therapy [id number] left, orders placed for a PICC. Patient remains with sign. Piting edema and anasarca, X1 does of PO Zaroxolyn and 2m of IV lasix given. Electrolytes repleted, repeat lab in the am. 12/31: Tolerated Rt. thoracentesis at the bedside yesterday, 1.4L removed. Patient remains stable on the vent this am, tolerating CPAP today PS dropped to 14. Recent CXR noted, left pleural effusion improved. Patient tolerated gentle diurese yesterday, good urine output reported. D/w CCM hold off on Left thoracentesis today, continue PO Aldactone and additonal zaroxolyn and IV lasix again today. F/u CXR in the am. 01/01: This am CXR noted with worsening bilateral pleural effusion. Patient is stable and tolerating PST this am, however PS is back up to 20 this am. BP is soft this am will hold off on IV diuretic for today, continue PO Aldactone. D/w CCM continue gentle diurese as tolerated. Will reassess in the am. Continue support care. 01/02: [facility] overnight. VSS this am, tolerating PST. X1dose of 25% IV Albumin following with 20mg IV Lasix today. Continue daily gentle diurese if hemodynamics tolerate it. Continue to monitor and replace electrolytes as needed Assessment and Plan #MRSA Bacteremia #MRSA Pneumonia #Septic Shock POA-resolved - Presented with fevers, leukocytosis, and hypotension - COVID PCR negative - 11/04 Bcult with 3/4 group B strep bacteremia, [id number] Bculture NGTD - 11/04 2D Echo with no evidence of vegetation - New fevers on 12/16- Blood and sputum culture with MRSA - 12/16- UA is unremarkable - 12/18 repeat B.culture with NGTD - 12/19 Repeat 2D echo- with no obvious vegetation noted. EF 35-40% - ID on consult, appreciate recommendations - Continue IV Abx- Vanco per ID recs. alf therapy, need a PICC - Trend CBC #Acute Hypoxic Respiratory Failure 11/19 #MRSA Pneumonia #Bilateral Pleural Effusion #Right Pneumothorax-resolved - COVID PCR negative - CXR shows Bilateral opacities, may be volume overloaded - CCM consulted, appreciate recommendations - Intubated on 11/06, ETT exchanged on 11/11 - 11/11 Bronchoscopy--Complicated by spontaneous pneumothorax - 11/11 S/p chest tube placement for right pneumothorax, removed by patient on 11/15 - 11/26 s/p Tracheostomy and PEGtube placement - 12/11 US thoracentesis due to moderate pleural effusion-1L removed - 12/29 US thoracentesis- 1.4L removed - This am Vent Setting:CPAP-30%,8 PS-20 - Continue Nebs treatment - Continue daily PST as tolerated - VAP bundle addressed - Aspiration precaution HOB above 30 - PRN ABG and CXR per CCM - Continue SPO2 monitoring for SPO2 goal above 92% #CHF- EF 30-35% with PPM #Hypotension-resolved #Septic Kristian-resolved - SR on the monitor, HR 70-90s - 11/04 Echo-EF 30-35% - 12/19 Repeat EF 35-40% - Continue beta-charleen - Not on aspirin due to allergy - Statins resumed - Continue blood pressure monitor per protocol - Maintain MAP above 65 - Cardiology signed off #Acute Microcytic Anemia #Acute Blood Loss-resolved #Acute GI Bleed-resolved - s/p a total of 7units of PRBCs since admit - 11/18 EGD- Large cratered ulcer in the posterior duodenal bulb about 2 cm in diameter. Visible vessel present. Mild active oozing from the ulcer bed. A total of 3 injections were performed around the ulcer for a total of 2.5 cc of d ilute epinephrine and hemostasis was obtained.--> See full report - GI signed off - Stool occult still positive - H&H stable - Continue PPI and Carafate - Continue to trend CBC - Transfuse for H&H less than 7 - Hold AC for now #Hyponatremia #Hypokalemia - Gentle diurese - Strict intake and output - Continue to monitor and replace electrolytes as needed - Trend BMP,mag, & phosp #Urinary Retention-resolved - Sánchez reinserted on 11/19 for retention - Sánchez D/sara, patient is voiding - Bladder scan with no residual #Acute DVT in RLE - BLE doppler + Acute DVT in the right external iliac vein, common femoral vein, and superior aspect of femoral vein - Was on Therapeutic Lovenox- held to due GI Bleed - 11/17 s/p IVC filter placement by Vascular Surg #Agitation/Anxiety #Chronic Pain #Acute Encephalopathy-Resolved - Awake and following commands - Continue Buspar and seroquel - PRN Xanax for anxiety - CT head and EEG noted - Neurology consulted - PRN analgesia for pain management #Transaminitis/Shock Liver - Probably due to bacteria/spetic shock - Continue to Trend LFTs #Endo: h/o DM and hypothyroidism - Continue home Synthroid - Accu-Cheks every 6hrs - Avoid hypoglycemia The high probability of a clinically significant, sudden or life threatening deterioration of the [multi] system(s) required my full and direct attention, intervention and personal management. The aggregate critical care time was [60] minutes. This time is in addition to time spent performing reported procedures but includes the following: [x] Data Review and interpretation [x] Patient assessment and monitoring of vital signs [x] Documentation [x] Medication orders and management Disposition Plan: ICU Total Time Spent with Patient (Minutes): 60 History Interval history: Patient seen and examined at the bedside. Remains stable on the vent, AAO, following commands. Tolerating PST this am. [facility] overnight Hospitalist Physical - Constitutional Vitals: Temp Pulse Resp BP Pulse Ox 98.4 F 75 19 138/59 100 01/02/22 11:26 01/02/22 12:20 01/02/22 12:20 01/02/22 12:20 01/02/22 12:20 General appearance: Present: no acute distress, other (Trach and on the vent) - EENT Eyes: Present: PERRL ENT: other ([facility]) - Neck Neck: Present: normal ROM - Respiratory Respiratory effort: normal Respiratory: bilateral: rhonchi - Cardiovascular Rhythm: regular Heart Sounds: Present: S1 & S2 - Extremities Extremities: no ischemia, pulses intact, pulses symmetrical Extremity abnormal: edema - Peripheral Assessment Generalized Edema Type: Pitting Edema Degree: 3+ Capillary Refill: < 3 seconds Skin Temperature: Warm Peripheral Pulses: within normal limits - Abdominal General gastrointestinal: soft, non-distended, normal bowel sounds - Integumentary Integumentary: Present: warm, dry - Psychiatric Psychiatric: appropriate mood/affect, cooperative - Neurologic Neurologic: moves all extremities - Allied Health Allied health notes reviewed: nursing, case management HEART Score - HEART Score Troponin: Troponin T 0.045 ng/mL (0.00-0.029) H 11/29/21 20:15 Results - Labs CBC & Chem 7: 01/02/22 04:01 01/02/22 04:01 Labs: Laboratory Last Values WBC 8.1 K/mm3 (4.5-11.0) 01/02/22 04:01 RBC 2.57 M/mm3 (3.65-5.03) L 01/02/22 04:01 Hgb 7.1 gm/dl (10.1-14.3) L 01/02/22 04:01 Hct 21.5 % (30.3-42.9) L 01/02/22 04:01 MCV 84 fl (79-97) 01/02/22 04:01 MCH 28 pg (28-32) 01/02/22 04:01 MCHC 33 % (30-34) 01/02/22 04:01 RDW 18.1 % (13.2-15.2) H 01/02/22 04:01 Plt Count 163 K/mm3 (140-440) 01/02/22 04:01 Add Manual Diff Complete 12/20/21 04:54 Total Counted 100 12/20/21 04:54 Seg Neutrophils % Floor Sander 11/06/21 15:50 Seg Neuts % (Manual) 88.0 % (40.0-70.0) H 12/20/21 04:54 Band Neutrophils % 0 % 12/20/21 04:54 Lymphocytes % (Manual) 6.0 % (13.4-35.0) L 12/20/21 04:54 Reactive Lymphs % (Man) 0 % 12/20/21 04:54 Monocytes % (Manual) 5.0 % (0.0-7.3) 12/20/21 04:54 Eosinophils % (Manual) 1.0 % (0.0-4.3) 12/20/21 04:54 Basophils % (Manual) 0 % (0.0-1.8) 12/20/21 04:54 Metamyelocytes % 0 % 12/20/21 04:54 Myelocytes % 0 % 12/20/21 04:54 Promyelocytes % 0 % 12/20/21 04:54 Blast Cells % 0 % 12/20/21 04:54 Nucleated RBC % Not Reportable 12/20/21 04:54 Seg Neutrophils # Man 10.8 K/mm3 (1.8-7.7) H 12/20/21 04:54 Band Neutrophils # 0.0 K/mm3 12/20/21 04:54 Lymphocytes # (Manual) 0.7 K/mm3 (1.2-5.4) L 12/20/21 04:54 Abs React Lymphs (Man) 0.0 K/mm3 12/20/21 04:54 Monocytes # (Manual) 0.6 K/mm3 (0.0-0.8) 12/20/21 04:54 Eosinophils # (Manual) 0.1 K/mm3 (0.0-0.4) 12/20/21 04:54 Basophils # (Manual) 0.0 K/mm3 (0.0-0.1) 12/20/21 04:54 Metamyelocytes # 0.0 K/mm3 12/20/21 04:54 Myelocytes # 0.0 K/mm3 12/20/21 04:54 Promyelocytes # 0.0 K/mm3 12/20/21 04:54 Blast Cells # 0.0 K/mm3 12/20/21 04:54 WBC Morphology Not Reportable 12/20/21 04:54 Hypersegmented Neuts Not Reportable 12/20/21 04:54 Hyposegmented Neuts Not Reportable 12/20/21 04:54 Hypogranular Neuts Not Reportable 12/20/21 04:54 Smudge Cells Not Reportable 12/20/21 04:54 Toxic Granulation Not Reportable 12/20/21 04:54 Toxic Vacuolation Not Reportable 12/20/21 04:54 Dohle Bodies Not Reportable 12/20/21 04:54 Pelger-Huet Anomaly Not Reportable 12/20/21 04:54 Irina Rods Not Reportable 12/20/21 04:54 Platelet Estimate Consistent w auto 12/20/21 04:54 Clumped Platelets Not Reportable 12/20/21 04:54 Plt Clumps, EDTA Not Reportable 12/20/21 04:54 Large Platelets Not Reportable 12/20/21 04:54 Giant Platelets Not Reportable 12/20/21 04:54 Platelet Satelliting Not Reportable 12/20/21 04:54 Plt Morphology Comment Not Reportable 12/20/21 04:54 RBC Morphology Not Reportable 12/20/21 04:54 Dimorphic RBCs Not Reportable 12/20/21 04:54 Polychromasia Not Reportable 12/20/21 04:54 Hypochromasia Not Reportable 12/20/21 04:54 Poikilocytosis Not Reportable 12/20/21 04:54 Anisocytosis 1+ 12/20/21 04:54 Microcytosis Not Reportable 12/20/21 04:54 Macrocytosis Not Reportable 12/20/21 04:54 Spherocytes Not Reportable 12/20/21 04:54 Pappenheimer Bodies Not Reportable 12/20/21 04:54 Sickle Cells Not Reportable 12/20/21 04:54 Target Cells Not Reportable 12/20/21 04:54 Tear Drop Cells Not Reportable 12/20/21 04:54 Ovalocytes Not Reportable 12/20/21 04:54 Helmet Cells Not Reportable 12/20/21 04:54 [place] Bodies Not Reportable 12/20/21 04:54 Duff Rings Not Reportable 12/20/21 04:54 Malcom Cells Not Reportable 12/20/21 04:54 Bite Cells Not Reportable 12/20/21 04:54 Crenated Cell Not Reportable 12/20/21 04:54 Elliptocytes Not Reportable 12/20/21 04:54 Acanthocytes (Spur) Not Reportable 12/20/21 04:54 Rouleaux Not Reportable 12/20/21 04:54 Hemoglobin C Crystals Not Reportable 12/20/21 04:54 Schistocytes Not Reportable 12/20/21 04:54 Malaria parasites Not Reportable 12/20/21 04:54 Godfrey Bodies Not Reportable 12/20/21 04:54 Hem Pathologist Commnt No 12/20/21 04:54 PT 16.9 Sec. (12.2-14.9) H 11/26/21 05:00 INR 1.24 (0.87-1.13) H 11/26/21 05:00 APTT 29.2 Sec. (24.2-36.6) 11/26/21 05:00 D-Dimer 2655.00 ng/mlDDU (0-234) H 11/11/21 04:28 ABG pH 7.479 pH Units (7.350-7.450) H 12/16/21 20:52 ABG pCO2 37.5 mm Hg 12/16/21 20:52 ABG pO2 79.3 mm Hg (80.0-90.0) L 12/16/21 20:52 ABG HCO3 27.3 mmol/L (20.0-26.0) H 12/16/21 20:52 ABG O2 Saturation 97.0 % (95.0-99.0) 12/16/21 20:52 ABG O2 Content 12.3 (0.0-44) 12/16/21 20:52 ABG Base Excess 3.6 mmol/L (-2.0-3.0) H 12/16/21 20:52 ABG Hemoglobin 9.1 gm/dl (12.0-16.0) L 12/16/21 20:52 ABG Carboxyhemoglobin 1.6 % (0.0-5.0) 12/16/21 20:52 ABG Methemoglobin 0.5 % (0.0-1.5) 12/16/21 20:52 Oxyhemoglobin 94.9 % (95.0-99.0) L 12/16/21 20:52 FiO2 30 % 12/16/21 20:52 Sodium 131 mmol/L (137-145) L 01/02/22 04:01 Potassium 3.5 mmol/L (3.6-5.0) L 01/02/22 04:01 Chloride 94.8 mmol/L (98-107) L 01/02/22 04:01 Carbon Dioxide 28 mmol/L (22-30) 01/02/22 04:01 Anion Gap 12 mmol/L 01/02/22 04:01 BUN 27 mg/dL (7-17) H 01/02/22 04:01 Creatinine 0.7 mg/dL (0.6-1.2) 01/02/22 04:01 Estimated GFR > 60 ml/min 01/02/22 04:01 BUN/Creatinine Ratio 39 % 01/02/22 04:01 Glucose 121 mg/dL (65-100) H 01/02/22 04:01 POC Glucose 117 mg/dL (70-105) H 01/02/22 11:10 Lactic Acid 3.70 mmol/L (0.7-2.0) H* 11/03/21 22:32 Calcium 8.4 mg/dL (8.4-10.2) 01/02/22 04:01 Phosphorus 3.90 mg/dL (2.5-4.5) 01/02/22 04:01 Magnesium 1.80 mg/dL (1.7-2.3) 01/02/22 04:01 Ferritin 52.6 ng/mL (10.0-200.0) 11/05/21 06:11 Total Bilirubin 0.50 mg/dL (0.1-1.2) 11/17/21 05:56 Direct Bilirubin < 0.2 mg/dL (0-0.2) 11/11/21 04:28 Indirect Bilirubin 0.1 mg/dL 11/11/21 04:28 AST 36 units/L (5-40) 11/17/21 05:56 ALT 47 units/L (7-56) 11/17/21 05:56 Alkaline Phosphatase 107 units/L (35-129) 11/17/21 05:56 Ammonia 42.0 umol/L (25-60) 11/10/21 14:08 Lactate Dehydrogenase 187 units/L (91-180) H 11/05/21 06:11 Troponin T 0.045 ng/mL (0.00-0.029) H 11/29/21 20:15 C-Reactive Protein 22.20 mg/dL (0.00-1.30) H 11/05/21 06:11 NT-Pro-B Natriuret Pep 7895 pg/mL (0-900) H 11/03/21 22:32 Total Protein 5.1 g/dL (6.3-8.2) L 11/17/21 05:56 Albumin 2.2 g/dL (3.9-5) L 11/17/21 05:56 Albumin/Globulin Ratio 0.8 % 11/17/21 05:56 Triglycerides 59 mg/dL (2-149) 11/29/21 20:15 Cholesterol 74 mg/dL (50-199) 11/29/21 20:15 LDL Cholesterol Direct 25 mg/dL (50-130) L 11/29/21 20:15 HDL Cholesterol 41 mg/dL (40-59) 11/29/21 20:15 Cholesterol/HDL Ratio 1.80 % 11/29/21 20:15 Vitamin B12 1823 pg/mL (211-911) H 11/10/21 14:08 TSH 1.510 mlU/mL (0.270-4.200) 11/10/21 14:08 Urine Color Yellow (Yellow) 11/11/21 09:00 Urine Turbidity Slightly-cloudy (Clear) 11/11/21 09:00 Urine pH 5.0 (5.0-7.0) 11/11/21 09:00 Ur Specific [place] 1.009 (1.003-1.030) 11/11/21 09:00 Urine Protein <15 mg/dl mg/dL (Negative) 11/11/21 09:00 Urine Glucose (UA) Neg mg/dL (Negative) 11/11/21 09:00 Urine Ketones Neg mg/dL (Negative) 11/11/21 09:00 Urine Blood Mod (Negative) 11/11/21 09:00 Urine Nitrite Neg (Negative) 11/11/21 09:00 Urine Bilirubin Neg (Negative) 11/11/21 09:00 Urine Urobilinogen < 2.0 mg/dL (<2.0) 11/11/21 09:00 Ur Leukocyte Esterase Neg (Negative) 11/11/21 09:00 Urine WBC (Auto) < 1.0 /HPF (0.0-6.0) 11/11/21 09:00 Urine RBC (Auto) < 1.0 /HPF (0.0-6.0) 11/11/21 09:00 Vancomycin Trough 14.4 ug/mL (5.0-20.0) 12/26/21 Unknown Coronavirus (PCR) Negative (Negative) 11/10/21 08:30 Blood Type O POSITIVE 12/14/21 10:30 Antibody Screen Negative 12/14/21 10:30 Crossmatch See Detail 12/14/21 10:30 Sánchez/IV: Voiding Method External Female Catheter Active Medications - Current Medications Current Medications: Generic Name Dose Route Start Last Admin Trade Name Freq PRN Reason Stop Dose Admin Acetaminophen 650 mg 12/14/21 04:12 01/01/22 11:45 Acetaminophen 325 Mg/10.15 Ml Oral Liqd Unit Dose FEEDTUBE 650 mg Q6H PRN Administration Non Cardiac Pain or Temp>100.5 Hydrocodone Bitart/Acetaminophen 1 each 11/21/21 10:00 01/02/22 08:35 Hydrocodone/Acetaminophen 10-325mg Tab FEEDTUBE 1 each TID YOSSI Administration Alprazolam 0.25 mg 12/30/21 09:00 12/31/21 20:53 Alprazolam 0.25 Mg Tab FEEDTUBE 0.25 mg Q8H PRN Administration Agitation Lipase/Protease/Amylase 1 each 11/08/21 11:09 Lipase 10,500/Protease 25,000/Amylase 43,750 (Units) Dr Lema FEEDTUBE PRN PRN For Clogged Feeding Tube Buspirone HCl 7.5 mg 12/30/21 10:00 01/02/22 10:04 Buspirone 5 Mg Tab FEEDTUBE 7.5 mg BID YOSSI Administration Dextrose 0 ml 11/10/21 10:52 12/30/21 00:48 Dextrose 10% *Hypoglycemia IV 50 ml PRN PRN Administration Hypoglycemia Docusate Sodium 100 mg 12/30/21 10:00 01/02/22 10:06 Docusate Sodium 100 Mg/10 Ml Oral Liqd FEEDTUBE 100 mg BID YOSSI Administration Gabapentin 100 mg 12/30/21 10:00 01/02/22 10:04 Gabapentin 100 Mg Cap FEEDTUBE 100 mg QDAY YOSSI Administration Hydromorphone HCl 0.5 mg 12/08/21 20:06 12/29/21 14:45 Hydromorphone 1 Mg/1 Ml Inj IV 0.5 mg Q3H PRN Administration Pain, Moderate (4-6) Hydrophilic Ointment 1 applic 11/06/21 04:02 Lip Therapy Vaseline TP Q2HR PRN Dry Lips Vancomycin HCl 1 gm in 250 mls @ 166.667 mls/hr 12/29/21 17:00 01/01/22 18:18 Vancomycin/Ns 1 Gm/250 Ml IV 01/26/22 18:29 166.667 mls/hr Q24H YOSSI Administration Protocol Lansoprazole 30 mg 11/24/21 22:00 01/02/22 10:05 Lansoprazole 30 Mg Solutab FEEDTUBE 30 mg BID YOSSI Administration Levothyroxine Sodium 125 mcg 12/31/21 06:00 01/02/22 05:56 Levothyroxine 125 Mcg Tab FEEDTUBE 125 mcg DAILY@0600 YOSSI Administration Melatonin 5 mg 12/05/21 22:00 01/01/22 21:02 Melatonin 5 Mg Tab PO 5 mg QHS YOSSI Administration Metoprolol Tartrate 6.25 mg 12/30/21 10:00 01/02/22 10:05 Metoprolol Tartrate 25 Mg Tab FEEDTUBE 6.25 mg BID YOSSI Administration Midodrine 5 mg 12/30/21 09:00 01/02/22 12:58 Midodrine 5 Mg Tab FEEDTUBE 5 mg TID@0800,1200,1600 YOSSI Administration Multi-Ingred Cream/Lotion/Oil/Oint 1 applic 11/06/21 04:02 Mineral Oil/Petrolatum, White Ophth Oint 3.5 Gm OU Q4HR PRN Dry Eye(s) Ondansetron HCl 4 mg 12/05/21 10:00 12/30/21 21:54 Ondansetron 4 Mg/2 Ml Inj IV 4 mg Q8H PRN Administration Nausea And Vomiting Polyethylene Glycol 17 gm 12/30/21 10:00 01/02/22 10:03 Polyethylene Glycol 3350 17 Gm Powder FEEDTUBE 17 gm QDAY YOSSI Administration Potassium Chloride 40 meq 01/02/22 22:00 Potassium Chloride 20 Meq Packet FEEDTUBE 01/02/22 22:01 QHS YOSSI Pravastatin Sodium 20 mg 12/30/21 22:00 01/01/22 21:00 Pravastatin 20 Mg Tab FEEDTUBE 20 mg QHS YOSSI Administration Quetiapine Fumarate 25 mg 12/30/21 10:00 01/02/22 10:05 Quetiapine 25 Mg Tab FEEDTUBE 25 mg QAM YOSSI Administration Quetiapine Fumarate 50 mg 12/30/21 22:00 01/01/22 21:04 Quetiapine 25 Mg Tab FEEDTUBE 50 mg QHS YOSSI Administration Senna 17.6 mg 12/29/21 11:00 01/02/22 10:04 Sennosides Oral Liqd 8.8 Mg/5 Ml Oral Liqd FEEDTUBE 17.6 mg Q12HR YOSSI Administration Simple Syrup 15 ml 11/08/21 11:09 Simple Syrup 15 Ml FEEDTUBE PRN PRN Hypoglycemia Simple Syrup 30 ml 11/08/21 11:09 Simple Syrup 15 Ml FEEDTUBE PRN PRN Hypoglycemia Sodium Bicarbonate 325 mg 11/08/21 11:09 Sodium Bicarbonate 325 Mg Tab FEEDTUBE PRN PRN For Clogged Feeding Tube Sodium Chloride 10 ml 11/04/21 10:00 01/02/22 10:07 Sodium Chloride 0.9% 10 Ml Flush Syringe IV 10 ml BID YOSSI Administration Sodium Chloride 10 ml 11/04/21 02:03 Sodium Chloride 0.9% 10 Ml Flush Syringe IV PRN PRN LINE FLUSH Spironolactone 25 mg 12/30/21 10:00 01/02/22 10:04 Spironolactone 25 Mg Tab FEEDTUBE 25 mg QDAY YOSSI Administration Sucralfate 1 gm 12/30/21 12:00 01/02/22 12:58 Sucralfate 1 Gm/10 Ml Oral Liqd FEEDTUBE 1 gm Q6HR YOSSI Administration Trazodone HCl 50 mg 12/04/21 22:00 01/01/22 21:09 Trazodone 50 Mg Tab PO 50 mg QHS YOSSI Administration Nutrition/Malnutrition Assess - Dietary Evaluation Nutrition/Malnutrition Findings: Nutrition Notes Start: 11/04/21 17:16 Freq: Status: Active Protocol: Document 01/02/22 12:11 YOVANI (Rec: 01/02/22 12:17 ARALL [id number]) Nutrition Notes Initial or Follow up Reassessment Current Diagnosis Diabetes,Heart Failure, Respiratory Failure Other Pertinent Diagnosis Bacteremia, pneu, Bilat pleural effusion, Agitation/ anxiety Current Diet TF - Vital AF 1.2 at 45ml/hr Labs/Tests Na 131 K 3.5 BUN 27 Pertinent Medications 25% Human Albumin, Colace, Lasix, Reglan, Miralax, 40mEq KCl, Senokot, Sucralfate Height 5 ft Weight 73.3 kg [place] Body Weight (kg) 45.45 BMI 31.5 Weight change and time frame Current wt obtained from bed scale Weight Status Obese Subjective/Other Information Observed TF infusing at goal rate. Pt remains on vent support. Percent of energy/protein needs met: 100% energy 89% pro Burn Absent Trauma Absent #1 Nutrition Diagnosis Inadequate oral intake Diagnosis Progress(for reassessment Continues documentation) Is patient on ventilator? Yes Is Patient Ambulatory and/or Out of Bed No REE-([facility]-confined to bed) 1338.492 Kcal/Kg value to use for calculation 17 Approximate Energy Requirements Using 1246 kcal/Kg Calculation Used for Recommendations Kcal/kg Additional Notes Pro needs 2g/kg IBW: 91g/day Fluid needs per MD. Nutrition Intervention Nutrition Support: Continue Vital AF 1.2 at 45ml/ hr with 70ml water flush q4h. Kcal 1,296 Protein (gm) 81 Carbohydrates (gm) 119 Fat (gm) 58 Fluid (mL) 876 Fiber (gm) 6 Goal #1 TF tolerance Goal #2 TF to meet at least 75% energy and pro needs Follow-Up By: 01/09/22 Additional Comments F/U: stable TF, vent status, wt <LEAH ALFONSO - Last Filed: 01/03/22 07:14> Assessment and Plan Assessment and plan: I saw and evaluated the patient. I agree with the findings and the plan of care as documented in the Nurse Practitioner's~note, with the following corrections and additions. Hospitalist Physical - Constitutional Vitals: Temp Pulse Resp BP Pulse Ox 97.7 F 92 H 29 H 149/64 97 01/03/22 03:25 01/03/22 06:00 01/03/22 06:00 01/03/22 06:00 01/03/22 06:00 HEART Score - HEART Score Troponin: Troponin T 0.045 ng/mL (0.00-0.029) H 11/29/21 20:15 Results - Labs CBC & Chem 7: 01/03/22 04:53 01/03/22 04:53 Labs: Laboratory Last Values WBC 10.6 K/mm3 (4.5-11.0) 01/03/22 04:53 RBC 2.82 M/mm3 (3.65-5.03) L 01/03/22 04:53 Hgb 7.7 gm/dl (10.1-14.3) L 01/03/22 04:53 Hct 23.4 % (30.3-42.9) L 01/03/22 04:53 MCV 83 fl (79-97) 01/03/22 04:53 MCH 27 pg (28-32) L 01/03/22 04:53 MCHC 33 % (30-34) 01/03/22 04:53 RDW 18.0 % (13.2-15.2) H 01/03/22 04:53 Plt Count 195 K/mm3 (140-440) 01/03/22 04:53 Add Manual Diff Complete 12/20/21 04:54 Total Counted 100 12/20/21 04:54 Seg Neutrophils % Floor Sander 11/06/21 15:50 Seg Neuts % (Manual) 88.0 % (40.0-70.0) H 12/20/21 04:54 Band Neutrophils % 0 % 12/20/21 04:54 Lymphocytes % (Manual) 6.0 % (13.4-35.0) L 12/20/21 04:54 Reactive Lymphs % (Man) 0 % 12/20/21 04:54 Monocytes % (Manual) 5.0 % (0.0-7.3) 12/20/21 04:54 Eosinophils % (Manual) 1.0 % (0.0-4.3) 12/20/21 04:54 Basophils % (Manual) 0 % (0.0-1.8) 12/20/21 04:54 Metamyelocytes % 0 % 12/20/21 04:54 Myelocytes % 0 % 12/20/21 04:54 Promyelocytes % 0 % 12/20/21 04:54 Blast Cells % 0 % 12/20/21 04:54 Nucleated RBC % Not Reportable 12/20/21 04:54 Seg Neutrophils # Man 10.8 K/mm3 (1.8-7.7) H 12/20/21 04:54 Band Neutrophils # 0.0 K/mm3 12/20/21 04:54 Lymphocytes # (Manual) 0.7 K/mm3 (1.2-5.4) L 12/20/21 04:54 Abs React Lymphs (Man) 0.0 K/mm3 12/20/21 04:54 Monocytes # (Manual) 0.6 K/mm3 (0.0-0.8) 12/20/21 04:54 Eosinophils # (Manual) 0.1 K/mm3 (0.0-0.4) 12/20/21 04:54 Basophils # (Manual) 0.0 K/mm3 (0.0-0.1) 12/20/21 04:54 Metamyelocytes # 0.0 K/mm3 12/20/21 04:54 Myelocytes # 0.0 K/mm3 12/20/21 04:54 Promyelocytes # 0.0 K/mm3 12/20/21 04:54 Blast Cells # 0.0 K/mm3 12/20/21 04:54 WBC Morphology Not Reportable 12/20/21 04:54 Hypersegmented Neuts Not Reportable 12/20/21 04:54 Hyposegmented Neuts Not Reportable 12/20/21 04:54 Hypogranular Neuts Not Reportable 12/20/21 04:54 Smudge Cells Not Reportable 12/20/21 04:54 Toxic Granulation Not Reportable 12/20/21 04:54 Toxic Vacuolation Not Reportable 12/20/21 04:54 Dohle Bodies Not Reportable 12/20/21 04:54 Pelger-Huet Anomaly Not Reportable 12/20/21 04:54 Irina Rods Not Reportable 12/20/21 04:54 Platelet Estimate Consistent w auto 12/20/21 04:54 Clumped Platelets Not Reportable 12/20/21 04:54 Plt Clumps, EDTA Not Reportable 12/20/21 04:54 Large Platelets Not Reportable 12/20/21 04:54 Giant Platelets Not Reportable 12/20/21 04:54 Platelet Satelliting Not Reportable 12/20/21 04:54 Plt Morphology Comment Not Reportable 12/20/21 04:54 RBC Morphology Not Reportable 12/20/21 04:54 Dimorphic RBCs Not Reportable 12/20/21 04:54 Polychromasia Not Reportable 12/20/21 04:54 Hypochromasia Not Reportable 12/20/21 04:54 Poikilocytosis Not Reportable 12/20/21 04:54 Anisocytosis 1+ 12/20/21 04:54 Microcytosis Not Reportable 12/20/21 04:54 Macrocytosis Not Reportable 12/20/21 04:54 Spherocytes Not Reportable 12/20/21 04:54 Pappenheimer Bodies Not Reportable 12/20/21 04:54 Sickle Cells Not Reportable 12/20/21 04:54 Target Cells Not Reportable 12/20/21 04:54 Tear Drop Cells Not Reportable 12/20/21 04:54 Ovalocytes Not Reportable 12/20/21 04:54 Helmet Cells Not Reportable 12/20/21 04:54 [place] Bodies Not Reportable 12/20/21 04:54 Duff Rings Not Reportable 12/20/21 04:54 [place] Cells Not Reportable 12/20/21 04:54 Bite Cells Not Reportable 12/20/21 04:54 Crenated Cell Not Reportable 12/20/21 04:54 Elliptocytes Not Reportable 12/20/21 04:54 Acanthocytes (Spur) Not Reportable 12/20/21 04:54 Rouleaux Not Reportable 12/20/21 04:54 Hemoglobin C Crystals Not Reportable 12/20/21 04:54 Schistocytes Not Reportable 12/20/21 04:54 Malaria parasites Not Reportable 12/20/21 04:54 Godfrey Bodies Not Reportable 12/20/21 04:54 Hem Pathologist Commnt No 12/20/21 04:54 PT 16.9 Sec. (12.2-14.9) H 11/26/21 05:00 INR 1.24 (0.87-1.13) H 11/26/21 05:00 APTT 29.2 Sec. (24.2-36.6) 11/26/21 05:00 D-Dimer 2655.00 ng/mlDDU (0-234) H 11/11/21 04:28 ABG pH 7.479 pH Units (7.350-7.450) H 12/16/21 20:52 ABG pCO2 37.5 mm Hg 12/16/21 20:52 ABG pO2 79.3 mm Hg (80.0-90.0) L 12/16/21 20:52 ABG HCO3 27.3 mmol/L (20.0-26.0) H 12/16/21 20:52 ABG O2 Saturation 97.0 % (95.0-99.0) 12/16/21 20:52 ABG O2 Content 12.3 (0.0-44) 12/16/21 20:52 ABG Base Excess 3.6 mmol/L (-2.0-3.0) H 12/16/21 20:52 ABG Hemoglobin 9.1 gm/dl (12.0-16.0) L 12/16/21 20:52 ABG Carboxyhemoglobin 1.6 % (0.0-5.0) 12/16/21 20:52 ABG Methemoglobin 0.5 % (0.0-1.5) 12/16/21 20:52 Oxyhemoglobin 94.9 % (95.0-99.0) L 12/16/21 20:52 FiO2 30 % 12/16/21 20:52 Sodium 133 mmol/L (137-145) L 01/03/22 04:53 Potassium 4.3 mmol/L (3.6-5.0) D 01/03/22 04:53 Chloride 96.2 mmol/L (98-107) L 01/03/22 04:53 Carbon Dioxide 26 mmol/L (22-30) 01/03/22 04:53 Anion Gap 15 mmol/L 01/03/22 04:53 BUN 30 mg/dL (7-17) H 01/03/22 04:53 Creatinine 0.7 mg/dL (0.6-1.2) 01/03/22 04:53 Estimated GFR > 60 ml/min 01/03/22 04:53 BUN/Creatinine Ratio 43 % 01/03/22 04:53 Glucose 107 mg/dL (65-100) H 01/03/22 04:53 POC Glucose 114 mg/dL (70-105) H 01/02/22 23:26 Lactic Acid 3.70 mmol/L (0.7-2.0) H* 11/03/21 22:32 Calcium 8.7 mg/dL (8.4-10.2) 01/03/22 04:53 Phosphorus 3.60 mg/dL (2.5-4.5) 01/03/22 04:53 Magnesium 1.70 mg/dL (1.7-2.3) 01/03/22 04:53 Ferritin 52.6 ng/mL (10.0-200.0) 11/05/21 06:11 Total Bilirubin 0.50 mg/dL (0.1-1.2) 11/17/21 05:56 Direct Bilirubin < 0.2 mg/dL (0-0.2) 11/11/21 04:28 Indirect Bilirubin 0.1 mg/dL 11/11/21 04:28 AST 36 units/L (5-40) 11/17/21 05:56 ALT 47 units/L (7-56) 11/17/21 05:56 Alkaline Phosphatase 107 units/L (35-129) 11/17/21 05:56 Ammonia 42.0 umol/L (25-60) 11/10/21 14:08 Lactate Dehydrogenase 187 units/L (91-180) H 11/05/21 06:11 Troponin T 0.045 ng/mL (0.00-0.029) H 11/29/21 20:15 C-Reactive Protein 22.20 mg/dL (0.00-1.30) H 11/05/21 06:11 NT-Pro-B Natriuret Pep 7895 pg/mL (0-900) H 11/03/21 22:32 Total Protein 5.1 g/dL (6.3-8.2) L 11/17/21 05:56 Albumin 2.2 g/dL (3.9-5) L 11/17/21 05:56 Albumin/Globulin Ratio 0.8 % 11/17/21 05:56 Triglycerides 59 mg/dL (2-149) 11/29/21 20:15 Cholesterol 74 mg/dL (50-199) 11/29/21 20:15 LDL Cholesterol Direct 25 mg/dL (50-130) L 11/29/21 20:15 HDL Cholesterol 41 mg/dL (40-59) 11/29/21 20:15 Cholesterol/HDL Ratio 1.80 % 11/29/21 20:15 Vitamin B12 1823 pg/mL (211-911) H 11/10/21 14:08 TSH 1.510 mlU/mL (0.270-4.200) 11/10/21 14:08 Urine Color Yellow (Yellow) 11/11/21 09:00 Urine Turbidity Slightly-cloudy (Clear) 11/11/21 09:00 Urine pH 5.0 (5.0-7.0) 11/11/21 09:00 Ur Specific [place] 1.009 (1.003-1.030) 11/11/21 09:00 Urine Protein <15 mg/dl mg/dL (Negative) 11/11/21 09:00 Urine Glucose (UA) Neg mg/dL (Negative) 11/11/21 09:00 Urine Ketones Neg mg/dL (Negative) 11/11/21 09:00 Urine Blood Mod (Negative) 11/11/21 09:00 Urine Nitrite Neg (Negative) 11/11/21 09:00 Urine Bilirubin Neg (Negative) 11/11/21 09:00 Urine Urobilinogen < 2.0 mg/dL (<2.0) 11/11/21 09:00 Ur Leukocyte Esterase Neg (Negative) 11/11/21 09:00 Urine WBC (Auto) < 1.0 /HPF (0.0-6.0) 11/11/21 09:00 Urine RBC (Auto) < 1.0 /HPF (0.0-6.0) 11/11/21 09:00 Vancomycin Trough 22.8 ug/mL (5.0-20.0) H 01/02/22 17:30 Coronavirus (PCR) Negative (Negative) 11/10/21 08:30 Blood Type O POSITIVE 12/14/21 10:30 Antibody Screen Negative 12/14/21 10:30 Crossmatch See Detail 12/14/21 10:30 Snáchez/IV: Voiding Method External Female Catheter Active Medications - Current Medications Current Medications: Generic Name Dose Route Start Last Admin Trade Name Freq PRN Reason Stop Dose Admin Acetaminophen 650 mg 12/14/21 04:12 01/01/22 11:45 Acetaminophen 325 Mg/10.15 Ml Oral Liqd Unit Dose FEEDTUBE 650 mg Q6H PRN Administration Non Cardiac Pain or Temp>100.5 Hydrocodone Bitart/Acetaminophen 1 each 11/21/21 10:00 01/02/22 21:13 Hydrocodone/Acetaminophen 10-325mg Tab FEEDTUBE 1 each TID YOSSI Administration Alprazolam 0.25 mg 12/30/21 09:00 12/31/21 20:53 Alprazolam 0.25 Mg Tab FEEDTUBE 0.25 mg Q8H PRN Administration Agitation Lipase/Protease/Amylase 1 each 11/08/21 11:09 Lipase 10,500/Protease 25,000/Amylase 43,750 (Units) Cap FEEDTUBE PRN PRN For Clogged Feeding Tube Buspirone HCl 7.5 mg 12/30/21 10:00 01/02/22 21:15 Buspirone 5 Mg Tab FEEDTUBE 7.5 mg BID YOSSI Administration Dextrose 0 ml 11/10/21 10:52 12/30/21 00:48 Dextrose 10% *Hypoglycemia IV 50 ml PRN PRN Administration Hypoglycemia Docusate Sodium 100 mg 12/30/21 10:00 01/02/22 21:35 Docusate Sodium 100 Mg/10 Ml Oral Liqd FEEDTUBE 100 mg BID YOSSI Administration Gabapentin 100 mg 12/30/21 10:00 01/02/22 10:04 Gabapentin 100 Mg Cap FEEDTUBE 100 mg QDAY YOSSI Administration Hydromorphone HCl 0.5 mg 12/08/21 20:06 12/29/21 14:45 Hydromorphone 1 Mg/1 Ml Inj IV 0.5 mg Q3H PRN Administration Pain, Moderate (4-6) Hydrophilic Ointment 1 applic 11/06/21 04:02 Lip Therapy Vaseline TP Q2HR PRN Dry Lips Vancomycin HCl 1 gm in 250 mls @ 166.667 mls/hr 12/29/21 17:00 01/02/22 18:46 Vancomycin/Ns 1 Gm/250 Ml IV 01/26/22 18:29 Not Given Q24H [facility] Protocol Lansoprazole 30 mg 11/24/21 22:00 01/02/22 21:36 Lansoprazole 30 Mg Solutab FEEDTUBE 30 mg BID YOSSI Administration Levothyroxine Sodium 125 mcg 12/31/21 06:00 01/03/22 05:29 Levothyroxine 125 Mcg Tab FEEDTUBE 125 mcg DAILY@0600 YOSSI Administration Melatonin 5 mg 12/05/21 22:00 01/02/22 21:13 Melatonin 5 Mg Tab PO 5 mg QHS YOSSI Administration Metoprolol Tartrate 6.25 mg 12/30/21 10:00 01/02/22 21:13 Metoprolol Tartrate 25 Mg Tab FEEDTUBE 6.25 mg BID YOSSI Administration Midodrine 5 mg 12/30/21 09:00 01/02/22 17:26 Midodrine 5 Mg Tab FEEDTUBE 5 mg TID@0800,1200,1600 YOSSI Administration Multi-Ingred Cream/Lotion/Oil/Oint 1 applic 11/06/21 04:02 Mineral Oil/Petrolatum, White Ophth Oint 3.5 Gm OU Q4HR PRN Dry Eye(s) Ondansetron HCl 4 mg 12/05/21 10:00 01/03/22 05:28 Ondansetron 4 Mg/2 Ml Inj IV 4 mg Q8H PRN Administration Nausea And Vomiting Polyethylene Glycol 17 gm 12/30/21 10:00 01/02/22 10:03 Polyethylene Glycol 3350 17 Gm Powder FEEDTUBE 17 gm QDAY YOSSI Administration Pravastatin Sodium 20 mg 12/30/21 22:00 01/02/22 21:16 Pravastatin 20 Mg Tab FEEDTUBE 20 mg QHS YOSSI Administration Quetiapine Fumarate 25 mg 12/30/21 10:00 01/02/22 10:05 Quetiapine 25 Mg Tab FEEDTUBE 25 mg QAM YOSSI Administration Quetiapine Fumarate 50 mg 12/30/21 22:00 01/02/22 21:13 Quetiapine 25 Mg Tab FEEDTUBE 50 mg QHS YOSSI Administration Senna 17.6 mg 12/29/21 11:00 01/02/22 21:13 Sennosides Oral Liqd 8.8 Mg/5 Ml Oral Liqd FEEDTUBE 17.6 mg Q12HR YOSSI Administration Simple Syrup 15 ml 11/08/21 11:09 Simple Syrup 15 Ml FEEDTUBE PRN PRN Hypoglycemia Simple Syrup 30 ml 11/08/21 11:09 Simple Syrup 15 Ml FEEDTUBE PRN PRN Hypoglycemia Sodium Bicarbonate 325 mg 11/08/21 11:09 Sodium Bicarbonate 325 Mg Tab FEEDTUBE PRN PRN For Clogged Feeding Tube Sodium Chloride 10 ml 11/04/21 10:00 01/02/22 10:07 Sodium Chloride 0.9% 10 Ml Flush Syringe IV 10 ml BID YOSSI Administration Sodium Chloride 10 ml 11/04/21 02:03 Sodium Chloride 0.9% 10 Ml Flush Syringe IV PRN PRN LINE FLUSH Spironolactone 25 mg 12/30/21 10:00 01/02/22 10:04 Spironolactone 25 Mg Tab FEEDTUBE 25 mg QDAY YOSSI Administration Sucralfate 1 gm 12/30/21 12:00 01/03/22 05:29 Sucralfate 1 Gm/10 Ml Oral Liqd FEEDTUBE 1 gm Q6HR YOSSI Administration Trazodone HCl 50 mg 12/04/21 22:00 01/02/22 21:15 Trazodone 50 Mg Tab PO 50 mg QHS YOSSI Administration Nutrition/Malnutrition Assess - Dietary Evaluation Nutrition/Malnutrition Findings: Nutrition Notes Start: 11/04/21 17:16 Freq: Status: Active Protocol: Document 01/02/22 12:11 [facility] (Rec: 01/02/22 12:17 [facility] [id number]) Nutrition Notes Initial or Follow up Reassessment Current Diagnosis Diabetes,Heart Failure, Respiratory Failure Other Pertinent Diagnosis Bacteremia, pneu, Bilat pleural effusion, Agitation/ anxiety Current Diet TF - Vital AF 1.2 at 45ml/hr Labs/Tests Na 131 K 3.5 BUN 27 Pertinent Medications 25% Human Albumin, Colace, Lasix, Reglan, Miralax, 40mEq KCl, Senokot, Sucralfate Height 5 ft Weight 73.3 kg [place] Body Weight (kg) 45.45 BMI 31.5 Weight change and time frame Current wt obtained from bed scale Weight Status Obese Subjective/Other Information Observed TF infusing at goal rate. Pt remains on vent support. Percent of energy/protein needs met: 100% energy 89% pro Burn Absent Trauma Absent #1 Nutrition Diagnosis Inadequate oral intake Diagnosis Progress(for reassessment Continues documentation) Is patient on ventilator? Yes Is Patient Ambulatory and/or Out of Bed No REE-([place]-confined to bed) 1338.492 Kcal/Kg value to use for calculation 17 Approximate Energy Requirements Using 1246 kcal/Kg Calculation Used for Recommendations Kcal/kg Additional Notes Pro needs 2g/kg IBW: 91g/day Fluid needs per MD. Nutrition Intervention Nutrition Support: Continue Vital AF 1.2 at 45ml/ hr with 70ml water flush q4h. Kcal 1,296 Protein (gm) 81 Carbohydrates (gm) 119 Fat (gm) 58 Fluid (mL) 876 Fiber (gm) 6 Goal #1 TF tolerance Goal #2 TF to meet at least 75% energy and pro needs Follow-Up By: 01/09/22 Additional Comments F/U: stable TF, vent status, wt
[2022-01-02] MEDS: VANCOMYCIN/NS 1 GM/250 ML 1 GM/250 ML BAG IV SCH (18:46)
--- NOTE | 2022-01-02 19:51 | Progress Note ---
Assessment and Plan 81-year-old female with known history of diabetes mellitus, hypertension and arthritis brought to the emergency room via EMS for shortness of breath which has been ongoing for the past 3 days prior to come to the emergency room. Patient has been having some cough and shortness of breath. According to patient's , patient has also been having a fever of about 102.2 F. Upon arrival of EMS patient was found to be tachypneic with O2 saturation of 76% on room air which later improved to 88% on nonrebreather. Work-up in the emergency room , chest x-ray shows bilateral interstitial pulmonary edema with bilateral pleural effusions.. Bibasilar opacities which favors atelectasis. Lab reveals leukocytosis of 29. Hemoglobin of 6.1. Patient received blood transfusion and also checked for COVID-19. Patient Ivy virus test reported negative. Patient intubated and placed on mechanical ventilation. Patient transfered to ICU. Patient undergone thoracentesis and chest tube placement. Patient still on mechanical ventilation. Patient transfered to IMCU. Patient Awake. Not following commands . Patient is still on assist control mechanical ventilation, rate 14, Tidal volume 400, FIO2 30%, PEEP 8 and O2 saturation running 100%. Patient running low grade temp. No leukocytosis.Blood pressure 110/84, Pulse 82respirations 19 Chest xray 12/11/21 reported Diffuse bilateral pulmonary opacities most significant in the left lung and right upper lung .No pneumothorax. Chest xray done 01/01/22 reported Worsening bilateral pulmonary opacities and effusions Patient is on Vancomycin, Prevacid and Sucralfate. Recommend SCDs. Patient is on tube feeding. I spent critical care time of 40 minutes, reviewing the chart, examine the patient, review lab results, chest xray and talk to respiratory therapy and nursing staff and work out plan of treatment in this critically ill patient. - Patient Problems (1) Acute respiratory failure with hypoxia Current Visit: Yes Status: Acute Plan to address problem: Mechanical ventilation, assist control, rate 14, Tidal volue 400, FIO2 30%, PEEP 8 S/P tracheostomy. (2) Bilateral pneumonia Current Visit: Yes Status: Acute Plan to address problem: Patient is on vancomycin. (3) Occult blood positive stool Current Visit: Yes Status: Acute Plan to address problem: Management as per gastroenterology. (4) Acute anemia Current Visit: Yes Status: Acute Plan to address problem: Patient received blood transfusion. (5) Suspected COVID-19 virus infection Current Visit: Yes Status: Acute Plan to address problem: Ivy virus PCR negative. Subjective Date of service: 01/02/22 Principal diagnosis: Septic shock; AHRF; Anemia; Pneumonia; pleural effusion; HFrEF; Pulm HTN Interval history: 81-year-old female with known history of diabetes mellitus, hypertension and arthritis brought to the emergency room via EMS for shortness of breath which has been ongoing for the past 3 days prior to come to the emergency room. Patient has been having some cough and shortness of breath. According to patient's , patient has also been having a fever of about 102.2 F. Upon arrival of EMS patient was found to be tachypneic with O2 saturation of 76% on room air which later improved to 88% on nonrebreather. Work-up in the emergency room , chest x-ray shows bilateral interstitial pulmonary edema with bilateral pleural effusions.. Bibasilar opacities which favors atelectasis. Lab reveals leukocytosis of 29. Hemoglobin of 6.1. Patient received blood transfusion and also checked for COVID-19. Patient Ivy virus test reported negative. Patient intubated and placed on mechanical ventilation. Patient transfered to ICU. Patient undergone thoracentesis and chest tube placement. Patient still on mechanical ventilation. Patient transfered to IMCU. Patient Awake. Not following commands . Patient is still on assist control mechanical ventilation, rate 14, Tidal volume 400, FIO2 30%, PEEP 8 and O2 saturation running 100%. Patient running low grade temp. No leukocytosis.Blood pressure 110/84, Pulse 82respirations 19 Chest xray 12/11/21 reported Diffuse bilateral pulmonary opacities most significant in the left lung and right upper lung .No pneumothorax. Chest xray done 01/01/22 reported Worsening bilateral pulmonary opacities and effusions Patient is on Vancomycin, Prevacid and Sucralfate. Recommend SCDs. Patient is on tube feeding. Objective Vital Signs - 12hr 01/02/22 01/02/22 01/02/22 08:00 08:05 08:10 Temperature Pulse Rate 65 69 Pulse Rate [ 69 From Monitor] Respiratory 14 14 Rate Blood Pressure 114/56 114/56 O2 Sat by Pulse 100 100 100 Oximetry O2 Sat by Pulse 100 Oximetry [ Assessment] 0301/02/22 01/02/22 09:01 10:00 10:04 Temperature Pulse Rate 78 72 77 Pulse Rate [ From Monitor] Respiratory 22 19 Rate Blood Pressure 123/85 145/58 145/58 O2 Sat by Pulse 100 100 Oximetry O2 Sat by Pulse Oximetry [ Assessment] 01/02/22 01/02/22 01/02/22 10:05 11:00 11:26 Temperature 98.4 F Pulse Rate 75 75 Pulse Rate [ From Monitor] Respiratory 16 Rate Blood Pressure 145/58 148/63 O2 Sat by Pulse 100 Oximetry O2 Sat by Pulse Oximetry [ Assessment] 01/02/22 01/02/22 01/02/22 12:00 12:20 13:00 Temperature Pulse Rate 68 75 75 Pulse Rate [ 72 From Monitor] Respiratory 22 19 18 Rate Blood Pressure 138/59 138/59 128/69 O2 Sat by Pulse 94 100 100 Oximetry O2 Sat by Pulse Oximetry [ Assessment] 01/02/22 01/02/22 01/02/22 14:00 15:00 16:00 Temperature Pulse Rate 80 77 85 Pulse Rate [ 69 From Monitor] Respiratory 24 19 12 Rate Blood Pressure 116/45 110/84 O2 Sat by Pulse 99 100 100 Oximetry O2 Sat by Pulse Oximetry [ Assessment] 01/02/22 01/02/22 01/02/22 16:15 16:20 16:45 Temperature 99.9 F H Pulse Rate 82 Pulse Rate [ From Monitor] Respiratory Rate Blood Pressure O2 Sat by Pulse 100 Oximetry O2 Sat by Pulse 100 Oximetry [ Assessment] 01/02/22 01/02/22 17:01 18:01 Temperature Pulse Rate 82 89 Pulse Rate [ From Monitor] Respiratory 17 17 Rate Blood Pressure 110/84 110/84 O2 Sat by Pulse 100 100 Oximetry O2 Sat by Pulse Oximetry [ Assessment] Constitutional: alert, appears uncomfortable (restless really), other (trach to MVS, frail elderly woman with mildly increased respiratory effort at rest) Eyes: non-icteric ENT: oropharynx moist, other (+ Midline tracheostomy with minimal secretions) Neck: supple, no lymphadenopathy, no JVD Effort: mildly labored Ascultation: Bilateral: diminished breath sounds, rhonchi Percussion: Bilateral: not dull Cardiovascular: regular rate and rhythm, other (S1,S2) Gastrointestinal: normoactive bowel sounds, soft, non-tender, non-distended (protuberant) Integumentary: normal Extremities: no cyanosis, pink and warm, pulses normal, edema (upper etremities), anasarca Neurologic: non-focal exam (grossly), pupils equal and round Psychiatric: depressed CBC and BMP: 01/03/22 04:53 01/03/22 04:53 ABG, PT/INR, D-dimer: ABG ABG pH 7.479 pH Units (7.350-7.450) H 12/16/21 20:52 ABG pCO2 37.5 mm Hg 12/16/21 20:52 ABG pO2 79.3 mm Hg (80.0-90.0) L 12/16/21 20:52 ABG O2 Saturation 97.0 % (95.0-99.0) 12/16/21 20:52 PT/INR, D-dimer PT 16.9 Sec. (12.2-14.9) H 11/26/21 05:00 INR 1.24 (0.87-1.13) H 11/26/21 05:00 D-Dimer 2655.00 ng/mlDDU (0-234) H 11/11/21 04:28 Abnormal lab findings: Abnormal Labs 11/03/21 11/03/21 11/03/21 22:32 22:32 22:32 WBC 29.3 H RBC 2.93 L Hgb 6.1 L Hct 21.9 L MCV 75 L MCH 21 L MCHC 28 L RDW 19.7 H Plt Count Seg Neuts % (Manual) 97.0 H Lymphocytes % (Manual) 3.0 L Seg Neutrophils # Man 28.4 H Lymphocytes # (Manual) 0.9 L Monocytes # (Manual) PT 18.6 H INR 1.40 H D-Dimer ABG pH ABG pO2 ABG HCO3 ABG O2 Saturation ABG Base Excess ABG Hemoglobin Oxyhemoglobin Sodium Potassium Chloride Carbon Dioxide 20 L BUN 33 H Creatinine Glucose 119 H POC Glucose Lactic Acid Calcium 8.3 L Phosphorus Magnesium AST ALT Alkaline Phosphatase Lactate Dehydrogenase Troponin T 0.035 H C-Reactive Protein NT-Pro-B Natriuret Pep Total Protein Albumin LDL Cholesterol Direct 34 L Vitamin B12 Vancomycin Trough Crossmatch 11/03/21 11/03/21 11/03/21 22:32 22:32 23:57 WBC RBC Hgb Hct MCV MCH MCHC RDW Plt Count Seg Neuts % (Manual) Lymphocytes % (Manual) Seg Neutrophils # Man Lymphocytes # (Manual) Monocytes # (Manual) PT INR D-Dimer ABG pH ABG pO2 ABG HCO3 ABG O2 Saturation ABG Base Excess ABG Hemoglobin Oxyhemoglobin Sodium Potassium Chloride Carbon Dioxide BUN Creatinine Glucose POC Glucose Lactic Acid 3.70 H* Calcium Phosphorus Magnesium AST ALT Alkaline Phosphatase 139 H Lactate Dehydrogenase Troponin T C-Reactive Protein NT-Pro-B Natriuret Pep 7895 H Total Protein Albumin 3.5 L LDL Cholesterol Direct Vitamin B12 Vancomycin Trough Crossmatch See Detail 11/04/21 11/04/21 11/05/21 00:59 13:58 00:51 WBC 27.9 H RBC 3.28 L Hgb 7.3 L Hct 25.5 L MCV 78 L MCH 22 L MCHC 29 L RDW 19.1 H Plt Count Seg Neuts % (Manual) 96.0 H Lymphocytes % (Manual) 2.0 L Seg Neutrophils # Man 26.8 H Lymphocytes # (Manual) 0.6 L Monocytes # (Manual) PT INR D-Dimer ABG pH ABG pO2 ABG HCO3 ABG O2 Saturation ABG Base Excess ABG Hemoglobin Oxyhemoglobin Sodium Potassium Chloride Carbon Dioxide BUN Creatinine Glucose POC Glucose Lactic Acid Calcium Phosphorus Magnesium AST ALT Alkaline Phosphatase Lactate Dehydrogenase Troponin T 0.051 H D 0.032 H D C-Reactive Protein NT-Pro-B Natriuret Pep Total Protein Albumin LDL Cholesterol Direct Vitamin B12 Vancomycin Trough Crossmatch 11/05/21 11/05/21 11/05/21 06:11 06:11 06:11 WBC 31.8 H RBC 3.57 L Hgb 8.0 L Hct 27.7 L MCV 78 L MCH 22 L MCHC 29 L RDW 19.2 H Plt Count Seg Neuts % (Manual) 91.0 H Lymphocytes % (Manual) 4.5 L Seg Neutrophils # Man 28.9 H Lymphocytes # (Manual) Monocytes # (Manual) 1.1 H PT INR D-Dimer 1494.53 H ABG pH ABG pO2 ABG HCO3 ABG O2 Saturation ABG Base Excess ABG Hemoglobin Oxyhemoglobin Sodium Potassium Chloride Carbon Dioxide 19 L BUN 42 H Creatinine Glucose 115 H POC Glucose Lactic Acid Calcium Phosphorus Magnesium AST 43 H ALT Alkaline Phosphatase Lactate Dehydrogenase 187 H Troponin T C-Reactive Protein 22.20 H NT-Pro-B Natriuret Pep Total Protein 6.0 L Albumin 3.2 L LDL Cholesterol Direct Vitamin B12 Vancomycin Trough Crossmatch 11/05/21 11/05/21 11/06/21 06:11 12:15 00:30 WBC RBC Hgb Hct MCV MCH MCHC RDW Plt Count Seg Neuts % (Manual) Lymphocytes % (Manual) Seg Neutrophils # Man Lymphocytes # (Manual) Monocytes # (Manual) PT INR D-Dimer ABG pH ABG pO2 ABG HCO3 ABG O2 Saturation ABG Base Excess ABG Hemoglobin Oxyhemoglobin Sodium Potassium Chloride Carbon Dioxide BUN Creatinine Glucose POC Glucose 113 H 69 L Lactic Acid Calcium Phosphorus Magnesium AST ALT Alkaline Phosphatase Lactate Dehydrogenase Troponin T 0.033 H C-Reactive Protein NT-Pro-B Natriuret Pep Total Protein Albumin LDL Cholesterol Direct Vitamin B12 Vancomycin Trough Crossmatch 11/06/21 11/06/21 11/06/21 05:50 15:50 15:50 WBC 25.5 H RBC 3.62 L Hgb 8.0 L Hct 27.5 L MCV 76 L MCH 22 L MCHC 29 L RDW 19.6 H Plt Count Seg Neuts % (Manual) 92.0 H Lymphocytes % (Manual) 5.0 L Seg Neutrophils # Man 23.5 H Lymphocytes # (Manual) Monocytes # (Manual) PT INR D-Dimer ABG pH 7.305 L ABG pO2 ABG HCO3 15.8 L ABG O2 Saturation ABG Base Excess -9.6 L ABG Hemoglobin 8.6 L Oxyhemoglobin 94.6 L Sodium Potassium Chloride 113.9 H Carbon Dioxide 17 L BUN 56 H Creatinine Glucose 114 H POC Glucose Lactic Acid Calcium 7.9 L Phosphorus Magnesium AST 1410 H ALT 934 H Alkaline Phosphatase 142 H Lactate Dehydrogenase Troponin T C-Reactive Protein NT-Pro-B Natriuret Pep Total Protein 5.0 L Albumin 2.6 L LDL Cholesterol Direct Vitamin B12 Vancomycin Trough Crossmatch 11/07/21 11/07/21 11/07/21 03:30 04:50 08:07 WBC RBC Hgb Hct MCV MCH MCHC RDW Plt Count Seg Neuts % (Manual) Lymphocytes % (Manual) Seg Neutrophils # Man Lymphocytes # (Manual) Monocytes # (Manual) PT INR D-Dimer ABG pH ABG pO2 296.9 H ABG HCO3 18.1 L ABG O2 Saturation 99.5 H ABG Base Excess -5.9 L ABG Hemoglobin 7.6 L Oxyhemoglobin Sodium Potassium Chloride Carbon Dioxide BUN Creatinine Glucose POC Glucose 106 H 108 H Lactic Acid Calcium Phosphorus Magnesium AST ALT Alkaline Phosphatase Lactate Dehydrogenase Troponin T C-Reactive Protein NT-Pro-B Natriuret Pep Total Protein Albumin LDL Cholesterol Direct Vitamin B12 Vancomycin Trough Crossmatch 11/08/21 11/08/21 11/08/21 03:10 18:05 23:43 WBC RBC Hgb Hct MCV MCH MCHC RDW Plt Count Seg Neuts % (Manual) Lymphocytes % (Manual) Seg Neutrophils # Man Lymphocytes # (Manual) Monocytes # (Manual) PT INR D-Dimer ABG pH ABG pO2 127.4 H ABG HCO3 ABG O2 Saturation ABG Base Excess -3.4 L ABG Hemoglobin 7.4 L Oxyhemoglobin Sodium Potassium Chloride Carbon Dioxide BUN Creatinine Glucose POC Glucose 113 H 141 H Lactic Acid Calcium Phosphorus Magnesium AST ALT Alkaline Phosphatase Lactate Dehydrogenase Troponin T C-Reactive Protein NT-Pro-B Natriuret Pep Total Protein Albumin LDL Cholesterol Direct Vitamin B12 Vancomycin Trough Crossmatch 11/08/21 11/08/21 11/09/21 Unknown Unknown 02:00 WBC 14.5 H RBC 3.35 L Hgb 7.5 L 8.1 L Hct 25.4 L 27.6 L MCV 76 L 76 L MCH 23 L 22 L MCHC RDW 19.9 H 19.9 H Plt Count Seg Neuts % (Manual) Lymphocytes % (Manual) Seg Neutrophils # Man Lymphocytes # (Manual) Monocytes # (Manual) PT INR D-Dimer ABG pH ABG pO2 ABG HCO3 ABG O2 Saturation ABG Base Excess ABG Hemoglobin Oxyhemoglobin Sodium 154 H D Potassium 3.3 L Chloride 120.7 H Carbon Dioxide 20 L BUN 38 H Creatinine Glucose POC Glucose Lactic Acid Calcium 8.3 L Phosphorus Magnesium AST ALT Alkaline Phosphatase Lactate Dehydrogenase Troponin T C-Reactive Protein NT-Pro-B Natriuret Pep Total Protein Albumin LDL Cholesterol Direct Vitamin B12 Vancomycin Trough Crossmatch 11/09/21 11/09/21 11/09/21 02:00 02:31 05:12 WBC RBC Hgb Hct MCV MCH MCHC RDW Plt Count Seg Neuts % (Manual) Lymphocytes % (Manual) Seg Neutrophils # Man Lymphocytes # (Manual) Monocytes # (Manual) PT INR D-Dimer ABG pH 7.479 H ABG pO2 121.3 H ABG HCO3 ABG O2 Saturation ABG Base Excess ABG Hemoglobin 7.3 L Oxyhemoglobin Sodium Potassium Chloride 112.5 H Carbon Dioxide BUN 33 H Creatinine Glucose 161 H POC Glucose 135 H Lactic Acid Calcium Phosphorus Magnesium AST 251 H ALT 481 H Alkaline Phosphatase Lactate Dehydrogenase Troponin T C-Reactive Protein NT-Pro-B Natriuret Pep Total Protein 5.0 L Albumin 2.8 L LDL Cholesterol Direct Vitamin B12 Vancomycin Trough Crossmatch 11/09/21 11/09/21 11/09/21 11:33 16:32 23:28 WBC RBC Hgb Hct MCV MCH MCHC RDW Plt Count Seg Neuts % (Manual) Lymphocytes % (Manual) Seg Neutrophils # Man Lymphocytes # (Manual) Monocytes # (Manual) PT INR D-Dimer ABG pH ABG pO2 ABG HCO3 ABG O2 Saturation ABG Base Excess ABG Hemoglobin Oxyhemoglobin Sodium Potassium Chloride Carbon Dioxide BUN Creatinine Glucose POC Glucose 132 H 133 H 143 H Lactic Acid Calcium Phosphorus Magnesium AST ALT Alkaline Phosphatase Lactate Dehydrogenase Troponin T C-Reactive Protein NT-Pro-B Natriuret Pep Total Protein Albumin LDL Cholesterol Direct Vitamin B12 Vancomycin Trough Crossmatch 11/10/21 11/10/21 11/10/21 04:00 04:00 05:35 WBC 16.0 H RBC 3.61 L Hgb 8.0 L Hct 27.1 L MCV 75 L MCH 22 L MCHC RDW 20.4 H Plt Count Seg Neuts % (Manual) Lymphocytes % (Manual) Seg Neutrophils # Man Lymphocytes # (Manual) Monocytes # (Manual) PT INR D-Dimer ABG pH ABG pO2 ABG HCO3 ABG O2 Saturation ABG Base Excess ABG Hemoglobin Oxyhemoglobin Sodium 149 H Potassium Chloride 114.1 H Carbon Dioxide BUN 31 H Creatinine Glucose 148 H POC Glucose 132 H Lactic Acid Calcium 8.2 L Phosphorus Magnesium AST ALT Alkaline Phosphatase Lactate Dehydrogenase Troponin T C-Reactive Protein NT-Pro-B Natriuret Pep Total Protein Albumin LDL Cholesterol Direct Vitamin B12 Vancomycin Trough Crossmatch 11/10/21 11/10/21 11/10/21 11:31 14:08 15:35 WBC RBC Hgb Hct MCV MCH MCHC RDW Plt Count Seg Neuts % (Manual) Lymphocytes % (Manual) Seg Neutrophils # Man Lymphocytes # (Manual) Monocytes # (Manual) PT INR D-Dimer ABG pH ABG pO2 126.6 H ABG HCO3 ABG O2 Saturation ABG Base Excess ABG Hemoglobin 7.4 L Oxyhemoglobin Sodium Potassium Chloride Carbon Dioxide BUN Creatinine Glucose POC Glucose 147 H Lactic Acid Calcium Phosphorus Magnesium AST ALT Alkaline Phosphatase Lactate Dehydrogenase Troponin T C-Reactive Protein NT-Pro-B Natriuret Pep Total Protein Albumin LDL Cholesterol Direct Vitamin B12 1823 H Vancomycin Trough Crossmatch 11/10/21 11/11/21 11/11/21 17:53 00:55 04:28 WBC RBC Hgb Hct MCV MCH MCHC RDW Plt Count Seg Neuts % (Manual) Lymphocytes % (Manual) Seg Neutrophils # Man Lymphocytes # (Manual) Monocytes # (Manual) PT INR D-Dimer ABG pH ABG pO2 ABG HCO3 ABG O2 Saturation ABG Base Excess ABG Hemoglobin Oxyhemoglobin Sodium 149 H Potassium Chloride 112.2 H Carbon Dioxide BUN 34 H Creatinine Glucose 148 H POC Glucose 140 H 145 H Lactic Acid Calcium 7.9 L Phosphorus Magnesium AST 53 H ALT 203 H Alkaline Phosphatase Lactate Dehydrogenase Troponin T C-Reactive Protein NT-Pro-B Natriuret Pep Total Protein 4.9 L Albumin 2.6 L LDL Cholesterol Direct Vitamin B12 Vancomycin Trough Crossmatch 11/11/21 11/11/21 11/11/21 04:28 04:28 05:28 WBC 20.9 H RBC 3.47 L Hgb 7.5 L Hct 26.0 L MCV 75 L MCH 22 L MCHC 29 L RDW 21.6 H Plt Count 132 L Seg Neuts % (Manual) Lymphocytes % (Manual) Seg Neutrophils # Man Lymphocytes # (Manual) Monocytes # (Manual) PT INR D-Dimer 2655.00 H ABG pH ABG pO2 ABG HCO3 ABG O2 Saturation ABG Base Excess ABG Hemoglobin Oxyhemoglobin Sodium Potassium Chloride Carbon Dioxide BUN Creatinine Glucose POC Glucose 154 H Lactic Acid Calcium Phosphorus Magnesium AST ALT Alkaline Phosphatase Lactate Dehydrogenase Troponin T C-Reactive Protein NT-Pro-B Natriuret Pep Total Protein Albumin LDL Cholesterol Direct Vitamin B12 Vancomycin Trough Crossmatch 11/11/21 11/11/21 11/12/21 12:38 18:13 00:14 WBC RBC Hgb Hct MCV MCH MCHC RDW Plt Count Seg Neuts % (Manual) Lymphocytes % (Manual) Seg Neutrophils # Man Lymphocytes # (Manual) Monocytes # (Manual) PT INR D-Dimer ABG pH ABG pO2 ABG HCO3 ABG O2 Saturation ABG Base Excess ABG Hemoglobin Oxyhemoglobin Sodium Potassium Chloride Carbon Dioxide BUN Creatinine Glucose POC Glucose 137 H 108 H 137 H Lactic Acid Calcium Phosphorus Magnesium AST ALT Alkaline Phosphatase Lactate Dehydrogenase Troponin T C-Reactive Protein NT-Pro-B Natriuret Pep Total Protein Albumin LDL Cholesterol Direct Vitamin B12 Vancomycin Trough Crossmatch 11/12/21 11/12/21 11/12/21 05:40 06:24 11:12 WBC RBC Hgb Hct MCV MCH MCHC RDW Plt Count Seg Neuts % (Manual) Lymphocytes % (Manual) Seg Neutrophils # Man Lymphocytes # (Manual) Monocytes # (Manual) PT INR D-Dimer ABG pH 7.586 H ABG pO2 150.6 H ABG HCO3 27.2 H ABG O2 Saturation 99.1 H ABG Base Excess 5.2 H ABG Hemoglobin 7.5 L Oxyhemoglobin Sodium Potassium Chloride Carbon Dioxide BUN Creatinine Glucose POC Glucose 132 H 140 H Lactic Acid Calcium Phosphorus Magnesium AST ALT Alkaline Phosphatase Lactate Dehydrogenase Troponin T C-Reactive Protein NT-Pro-B Natriuret Pep Total Protein Albumin LDL Cholesterol Direct Vitamin B12 Vancomycin Trough Crossmatch 11/12/21 11/12/21 11/12/21 14:50 14:50 17:13 WBC 19.8 H RBC 3.27 L Hgb 7.1 L Hct 24.5 L MCV 75 L MCH 22 L MCHC 29 L RDW 22.3 H Plt Count Seg Neuts % (Manual) Lymphocytes % (Manual) Seg Neutrophils # Man Lymphocytes # (Manual) Monocytes # (Manual) PT INR D-Dimer ABG pH ABG pO2 ABG HCO3 ABG O2 Saturation ABG Base Excess ABG Hemoglobin Oxyhemoglobin Sodium 150 H Potassium 3.3 L Chloride 112.0 H Carbon Dioxide BUN 40 H Creatinine Glucose 151 H POC Glucose 121 H Lactic Acid Calcium 7.4 L Phosphorus 1.70 L Magnesium 1.40 L AST ALT Alkaline Phosphatase Lactate Dehydrogenase Troponin T C-Reactive Protein NT-Pro-B Natriuret Pep Total Protein Albumin LDL Cholesterol Direct Vitamin B12 Vancomycin Trough Crossmatch 11/12/21 11/13/21 11/13/21 23:19 05:34 06:30 WBC RBC Hgb Hct MCV MCH MCHC RDW Plt Count Seg Neuts % (Manual) Lymphocytes % (Manual) Seg Neutrophils # Man Lymphocytes # (Manual) Monocytes # (Manual) PT INR D-Dimer ABG pH ABG pO2 ABG HCO3 ABG O2 Saturation ABG Base Excess ABG Hemoglobin Oxyhemoglobin Sodium 149 H Potassium Chloride 60.0 L Carbon Dioxide BUN 40 H Creatinine Glucose 146 H POC Glucose 113 H 132 H Lactic Acid Calcium 7.3 L Phosphorus Magnesium 2.40 H AST ALT 72 H Alkaline Phosphatase Lactate Dehydrogenase Troponin T C-Reactive Protein NT-Pro-B Natriuret Pep Total Protein 5.2 L Albumin 2.2 L LDL Cholesterol Direct Vitamin B12 Vancomycin Trough Crossmatch 11/13/21 11/13/21 11/13/21 06:30 08:30 11:19 WBC 21.2 H RBC 3.12 L Hgb 6.8 L Hct 23.2 L MCV 74 L MCH 22 L MCHC 29 L RDW 22.2 H Plt Count 135 L Seg Neuts % (Manual) Lymphocytes % (Manual) Seg Neutrophils # Man Lymphocytes # (Manual) Monocytes # (Manual) PT INR D-Dimer ABG pH ABG pO2 ABG HCO3 ABG O2 Saturation ABG Base Excess ABG Hemoglobin Oxyhemoglobin Sodium Potassium Chloride Carbon Dioxide BUN Creatinine Glucose POC Glucose 136 H Lactic Acid Calcium Phosphorus Magnesium AST ALT Alkaline Phosphatase Lactate Dehydrogenase Troponin T C-Reactive Protein NT-Pro-B Natriuret Pep Total Protein Albumin LDL Cholesterol Direct Vitamin B12 Vancomycin Trough Crossmatch See Detail 11/13/21 11/14/21 11/14/21 18:21 00:01 04:46 WBC 20.0 H RBC 3.41 L Hgb 7.9 L Hct 26.8 L MCV MCH 23 L MCHC 29 L RDW 24.0 H Plt Count Seg Neuts % (Manual) Lymphocytes % (Manual) Seg Neutrophils # Man Lymphocytes # (Manual) Monocytes # (Manual) PT INR D-Dimer ABG pH ABG pO2 ABG HCO3 ABG O2 Saturation ABG Base Excess ABG Hemoglobin Oxyhemoglobin Sodium Potassium Chloride Carbon Dioxide BUN Creatinine Glucose POC Glucose 149 H 141 H Lactic Acid Calcium Phosphorus Magnesium AST ALT Alkaline Phosphatase Lactate Dehydrogenase Troponin T C-Reactive Protein NT-Pro-B Natriuret Pep Total Protein Albumin LDL Cholesterol Direct Vitamin B12 Vancomycin Trough Crossmatch 11/14/21 11/14/21 11/14/21 04:46 05:10 11:10 WBC RBC Hgb Hct MCV MCH MCHC RDW Plt Count Seg Neuts % (Manual) Lymphocytes % (Manual) Seg Neutrophils # Man Lymphocytes # (Manual) Monocytes # (Manual) PT INR D-Dimer ABG pH ABG pO2 ABG HCO3 ABG O2 Saturation ABG Base Excess ABG Hemoglobin Oxyhemoglobin Sodium 148 H Potassium Chloride 113.1 H Carbon Dioxide BUN 43 H Creatinine Glucose 140 H POC Glucose 132 H 133 H Lactic Acid Calcium 7.5 L Phosphorus Magnesium AST ALT Alkaline Phosphatase Lactate Dehydrogenase Troponin T C-Reactive Protein NT-Pro-B Natriuret Pep Total Protein Albumin LDL Cholesterol Direct Vitamin B12 Vancomycin Trough Crossmatch 11/14/21 11/14/21 11/14/21 16:14 17:48 23:23 WBC RBC Hgb Hct MCV MCH MCHC RDW Plt Count Seg Neuts % (Manual) Lymphocytes % (Manual) Seg Neutrophils # Man Lymphocytes # (Manual) Monocytes # (Manual) PT INR D-Dimer ABG pH ABG pO2 ABG HCO3 28.0 H ABG O2 Saturation ABG Base Excess 3.1 H ABG Hemoglobin 5.8 L Oxyhemoglobin 94.8 L Sodium Potassium Chloride Carbon Dioxide BUN Creatinine Glucose POC Glucose 130 H 136 H Lactic Acid Calcium Phosphorus Magnesium AST ALT Alkaline Phosphatase Lactate Dehydrogenase Troponin T C-Reactive Protein NT-Pro-B Natriuret Pep Total Protein Albumin LDL Cholesterol Direct Vitamin B12 Vancomycin Trough Crossmatch 11/15/21 11/15/21 11/15/21 05:20 05:50 05:50 WBC 19.9 H RBC 3.50 L Hgb 8.2 L Hct 27.9 L MCV MCH 23 L MCHC 29 L RDW 24.9 H Plt Count Seg Neuts % (Manual) Lymphocytes % (Manual) Seg Neutrophils # Man Lymphocytes # (Manual) Monocytes # (Manual) PT INR D-Dimer ABG pH ABG pO2 ABG HCO3 ABG O2 Saturation ABG Base Excess ABG Hemoglobin Oxyhemoglobin Sodium 149 H Potassium Chloride 112.0 H Carbon Dioxide BUN 48 H Creatinine Glucose 152 H POC Glucose 137 H Lactic Acid Calcium 7.9 L Phosphorus Magnesium AST ALT Alkaline Phosphatase Lactate Dehydrogenase Troponin T C-Reactive Protein NT-Pro-B Natriuret Pep Total Protein Albumin LDL Cholesterol Direct Vitamin B12 Vancomycin Trough Crossmatch 11/15/21 11/15/21 11/15/21 12:12 17:07 23:24 WBC RBC Hgb Hct MCV MCH MCHC RDW Plt Count Seg Neuts % (Manual) Lymphocytes % (Manual) Seg Neutrophils # Man Lymphocytes # (Manual) Monocytes # (Manual) PT INR D-Dimer ABG pH ABG pO2 ABG HCO3 ABG O2 Saturation ABG Base Excess ABG Hemoglobin Oxyhemoglobin Sodium Potassium Chloride Carbon Dioxide BUN Creatinine Glucose POC Glucose 114 H 135 H 123 H Lactic Acid Calcium Phosphorus Magnesium AST ALT Alkaline Phosphatase Lactate Dehydrogenase Troponin T C-Reactive Protein NT-Pro-B Natriuret Pep Total Protein Albumin LDL Cholesterol Direct Vitamin B12 Vancomycin Trough Crossmatch 11/16/21 11/16/21 11/16/21 05:21 10:00 10:00 WBC 21.7 H RBC 2.57 L Hgb 6.0 L Hct 20.2 L D MCV MCH 24 L MCHC RDW 26.3 H Plt Count Seg Neuts % (Manual) Lymphocytes % (Manual) Seg Neutrophils # Man Lymphocytes # (Manual) Monocytes # (Manual) PT INR D-Dimer ABG pH ABG pO2 ABG HCO3 ABG O2 Saturation ABG Base Excess ABG Hemoglobin Oxyhemoglobin Sodium 153 H Potassium Chloride 114.9 H Carbon Dioxide BUN 74 H Creatinine Glucose 155 H POC Glucose 127 H Lactic Acid Calcium 8.1 L Phosphorus Magnesium AST ALT Alkaline Phosphatase Lactate Dehydrogenase Troponin T C-Reactive Protein NT-Pro-B Natriuret Pep Total Protein Albumin LDL Cholesterol Direct Vitamin B12 Vancomycin Trough Crossmatch 11/16/21 11/16/21 11/16/21 11:34 14:00 15:25 WBC 17.2 H RBC 2.08 L Hgb 4.7 L* Hct 16.2 L* MCV 78 L MCH 23 L MCHC 29 L RDW 26.0 H Plt Count Seg Neuts % (Manual) 87.0 H Lymphocytes % (Manual) 8.0 L Seg Neutrophils # Man 15.0 H Lymphocytes # (Manual) Monocytes # (Manual) 0.9 H PT INR D-Dimer ABG pH ABG pO2 ABG HCO3 ABG O2 Saturation ABG Base Excess ABG Hemoglobin Oxyhemoglobin Sodium Potassium Chloride Carbon Dioxide BUN Creatinine Glucose POC Glucose 131 H Lactic Acid Calcium Phosphorus Magnesium AST ALT Alkaline Phosphatase Lactate Dehydrogenase Troponin T C-Reactive Protein NT-Pro-B Natriuret Pep Total Protein Albumin LDL Cholesterol Direct Vitamin B12 Vancomycin Trough Crossmatch See Detail 11/16/21 11/16/21 11/16/21 15:25 17:21 22:43 WBC RBC Hgb 8.6 L D Hct 27.7 L D MCV MCH MCHC RDW Plt Count Seg Neuts % (Manual) Lymphocytes % (Manual) Seg Neutrophils # Man Lymphocytes # (Manual) Monocytes # (Manual) PT INR D-Dimer ABG pH ABG pO2 ABG HCO3 ABG O2 Saturation ABG Base Excess ABG Hemoglobin Oxyhemoglobin Sodium 148 H Potassium Chloride 113.2 H Carbon Dioxide BUN 84 H Creatinine Glucose 164 H POC Glucose 124 H Lactic Acid Calcium 7.6 L Phosphorus Magnesium AST ALT Alkaline Phosphatase Lactate Dehydrogenase Troponin T C-Reactive Protein NT-Pro-B Natriuret Pep Total Protein Albumin LDL Cholesterol Direct Vitamin B12 Vancomycin Trough Crossmatch 11/16/21 11/17/21 11/17/21 23:07 05:33 05:56 WBC 25.1 H RBC 3.47 L Hgb 8.7 L Hct 28.5 L MCV MCH 25 L MCHC RDW 22.3 H Plt Count Seg Neuts % (Manual) Lymphocytes % (Manual) Seg Neutrophils # Man Lymphocytes # (Manual) Monocytes # (Manual) PT INR D-Dimer ABG pH ABG pO2 ABG HCO3 ABG O2 Saturation ABG Base Excess ABG Hemoglobin Oxyhemoglobin Sodium Potassium Chloride Carbon Dioxide BUN Creatinine Glucose POC Glucose 128 H 133 H Lactic Acid Calcium Phosphorus Magnesium AST ALT Alkaline Phosphatase Lactate Dehydrogenase Troponin T C-Reactive Protein NT-Pro-B Natriuret Pep Total Protein Albumin LDL Cholesterol Direct Vitamin B12 Vancomycin Trough Crossmatch 11/17/21 11/17/21 11/17/21 05:56 11:00 11:55 WBC RBC Hgb 8.3 L Hct 26.9 L MCV MCH MCHC RDW Plt Count Seg Neuts % (Manual) Lymphocytes % (Manual) Seg Neutrophils # Man Lymphocytes # (Manual) Monocytes # (Manual) PT INR D-Dimer ABG pH ABG pO2 ABG HCO3 ABG O2 Saturation ABG Base Excess ABG Hemoglobin Oxyhemoglobin Sodium 151 H Potassium Chloride 113.6 H Carbon Dioxide BUN 85 H Creatinine Glucose 132 H POC Glucose 121 H Lactic Acid Calcium 7.8 L Phosphorus Magnesium AST ALT Alkaline Phosphatase Lactate Dehydrogenase Troponin T C-Reactive Protein NT-Pro-B Natriuret Pep Total Protein 5.1 L Albumin 2.2 L LDL Cholesterol Direct Vitamin B12 Vancomycin Trough Crossmatch 11/17/21 11/17/21 11/18/21 18:04 18:55 00:26 WBC RBC Hgb 7.5 L 7.1 L Hct 24.8 L 23.6 L MCV MCH MCHC RDW Plt Count Seg Neuts % (Manual) Lymphocytes % (Manual) Seg Neutrophils # Man Lymphocytes # (Manual) Monocytes # (Manual) PT INR D-Dimer ABG pH ABG pO2 ABG HCO3 ABG O2 Saturation ABG Base Excess ABG Hemoglobin Oxyhemoglobin Sodium Potassium Chloride Carbon Dioxide BUN Creatinine Glucose POC Glucose 144 H Lactic Acid Calcium Phosphorus Magnesium AST ALT Alkaline Phosphatase Lactate Dehydrogenase Troponin T C-Reactive Protein NT-Pro-B Natriuret Pep Total Protein Albumin LDL Cholesterol Direct Vitamin B12 Vancomycin Trough Crossmatch 11/18/21 11/18/21 11/18/21 00:43 05:10 05:10 WBC 12.5 H RBC 2.39 L Hgb 6.1 L Hct 20.2 L MCV MCH 25 L MCHC RDW 23.2 H Plt Count Seg Neuts % (Manual) Lymphocytes % (Manual) Seg Neutrophils # Man Lymphocytes # (Manual) Monocytes # (Manual) PT INR D-Dimer ABG pH ABG pO2 ABG HCO3 ABG O2 Saturation ABG Base Excess ABG Hemoglobin Oxyhemoglobin Sodium 131 L D Potassium 2.9 L* D Chloride 97.8 L Carbon Dioxide BUN 58 H Creatinine Glucose 665 H* POC Glucose 139 H Lactic Acid Calcium 7.0 L Phosphorus 2.20 L D Magnesium 1.50 L AST ALT Alkaline Phosphatase Lactate Dehydrogenase Troponin T C-Reactive Protein NT-Pro-B Natriuret Pep Total Protein Albumin LDL Cholesterol Direct Vitamin B12 Vancomycin Trough Crossmatch 11/18/21 11/18/21 11/18/21 05:23 07:10 10:45 WBC RBC Hgb Hct MCV MCH MCHC RDW Plt Count Seg Neuts % (Manual) Lymphocytes % (Manual) Seg Neutrophils # Man Lymphocytes # (Manual) Monocytes # (Manual) PT INR D-Dimer ABG pH ABG pO2 ABG HCO3 ABG O2 Saturation ABG Base Excess ABG Hemoglobin Oxyhemoglobin Sodium 148 H D Potassium 3.1 L Chloride 111.9 H Carbon Dioxide BUN 63 H Creatinine Glucose 141 H POC Glucose 124 H Lactic Acid Calcium 8.1 L D Phosphorus Magnesium AST ALT Alkaline Phosphatase Lactate Dehydrogenase Troponin T C-Reactive Protein NT-Pro-B Natriuret Pep Total Protein Albumin LDL Cholesterol Direct Vitamin B12 Vancomycin Trough Crossmatch See Detail 11/18/21 11/19/21 11/19/21 11:57 00:19 04:55 WBC RBC 3.35 L Hgb 9.0 L 8.9 L Hct 28.3 L D 28.1 L MCV MCH 27 L MCHC RDW 20.3 H Plt Count Seg Neuts % (Manual) Lymphocytes % (Manual) Seg Neutrophils # Man Lymphocytes # (Manual) Monocytes # (Manual) PT INR D-Dimer ABG pH ABG pO2 ABG HCO3 ABG O2 Saturation ABG Base Excess ABG Hemoglobin Oxyhemoglobin Sodium Potassium Chloride Carbon Dioxide BUN Creatinine Glucose POC Glucose 119 H Lactic Acid Calcium Phosphorus Magnesium AST ALT Alkaline Phosphatase Lactate Dehydrogenase Troponin T C-Reactive Protein NT-Pro-B Natriuret Pep Total Protein Albumin LDL Cholesterol Direct Vitamin B12 Vancomycin Trough Crossmatch 11/19/21 11/19/21 11/20/21 04:55 05:42 00:55 WBC RBC Hgb 9.0 L Hct 28.6 L MCV MCH MCHC RDW Plt Count Seg Neuts % (Manual) Lymphocytes % (Manual) Seg Neutrophils # Man Lymphocytes # (Manual) Monocytes # (Manual) PT INR D-Dimer ABG pH ABG pO2 ABG HCO3 ABG O2 Saturation ABG Base Excess ABG Hemoglobin Oxyhemoglobin Sodium Potassium 3.5 L Chloride 108.6 H Carbon Dioxide BUN 47 H Creatinine Glucose 207 H POC Glucose 63 L Lactic Acid Calcium 7.1 L Phosphorus Magnesium AST ALT Alkaline Phosphatase Lactate Dehydrogenase Troponin T C-Reactive Protein NT-Pro-B Natriuret Pep Total Protein Albumin LDL Cholesterol Direct Vitamin B12 Vancomycin Trough Crossmatch 11/20/21 11/20/21 11/20/21 05:40 05:40 Unknown WBC RBC 3.40 L Hgb 9.1 L Hct 28.8 L MCV MCH 27 L MCHC RDW 20.7 H Plt Count Seg Neuts % (Manual) Lymphocytes % (Manual) Seg Neutrophils # Man Lymphocytes # (Manual) Monocytes # (Manual) PT INR D-Dimer ABG pH ABG pO2 ABG HCO3 ABG O2 Saturation ABG Base Excess -2.7 L ABG Hemoglobin 9.5 L Oxyhemoglobin 94.3 L Sodium Potassium 3.5 L Chloride 108.9 H Carbon Dioxide BUN 37 H Creatinine Glucose 117 H POC Glucose Lactic Acid Calcium 7.5 L Phosphorus Magnesium AST ALT Alkaline Phosphatase Lactate Dehydrogenase Troponin T C-Reactive Protein NT-Pro-B Natriuret Pep Total Protein Albumin LDL Cholesterol Direct Vitamin B12 Vancomycin Trough Crossmatch 11/21/21 11/21/21 11/21/21 04:30 04:30 16:00 WBC RBC 3.25 L Hgb 8.6 L Hct 28.1 L MCV MCH 26 L MCHC RDW 20.7 H Plt Count Seg Neuts % (Manual) Lymphocytes % (Manual) Seg Neutrophils # Man Lymphocytes # (Manual) Monocytes # (Manual) PT INR D-Dimer ABG pH ABG pO2 114.2 H ABG HCO3 ABG O2 Saturation ABG Base Excess ABG Hemoglobin 9.1 L Oxyhemoglobin Sodium 134 L Potassium Chloride Carbon Dioxide 20 L BUN 34 H Creatinine Glucose POC Glucose Lactic Acid Calcium 7.1 L Phosphorus Magnesium AST ALT Alkaline Phosphatase Lactate Dehydrogenase Troponin T C-Reactive Protein NT-Pro-B Natriuret Pep Total Protein Albumin LDL Cholesterol Direct Vitamin B12 Vancomycin Trough Crossmatch 11/22/21 11/22/21 11/22/21 07:07 07:07 23:54 WBC RBC 3.30 L Hgb 9.0 L Hct 28.5 L MCV MCH 27 L MCHC RDW 21.0 H Plt Count Seg Neuts % (Manual) Lymphocytes % (Manual) Seg Neutrophils # Man Lymphocytes # (Manual) Monocytes # (Manual) PT INR D-Dimer ABG pH ABG pO2 ABG HCO3 ABG O2 Saturation ABG Base Excess ABG Hemoglobin Oxyhemoglobin Sodium Potassium Chloride Carbon Dioxide BUN 32 H Creatinine Glucose 106 H POC Glucose 110 H Lactic Acid Calcium 7.5 L Phosphorus Magnesium AST ALT Alkaline Phosphatase Lactate Dehydrogenase Troponin T C-Reactive Protein NT-Pro-B Natriuret Pep Total Protein Albumin LDL Cholesterol Direct Vitamin B12 Vancomycin Trough Crossmatch 11/23/21 11/23/21 11/23/21 04:38 04:38 06:01 WBC RBC 3.23 L Hgb 8.8 L Hct 28.0 L MCV MCH 27 L MCHC RDW 21.3 H Plt Count Seg Neuts % (Manual) Lymphocytes % (Manual) Seg Neutrophils # Man Lymphocytes # (Manual) Monocytes # (Manual) PT INR D-Dimer ABG pH ABG pO2 ABG HCO3 ABG O2 Saturation ABG Base Excess ABG Hemoglobin Oxyhemoglobin Sodium 136 L Potassium Chloride Carbon Dioxide 20 L BUN 32 H Creatinine Glucose 109 H POC Glucose 115 H Lactic Acid Calcium 7.7 L Phosphorus Magnesium AST ALT Alkaline Phosphatase Lactate Dehydrogenase Troponin T C-Reactive Protein NT-Pro-B Natriuret Pep Total Protein Albumin LDL Cholesterol Direct Vitamin B12 Vancomycin Trough Crossmatch 11/23/21 11/24/21 11/24/21 11:40 00:03 04:13 WBC RBC 3.18 L Hgb 8.5 L Hct 27.5 L MCV MCH 27 L MCHC RDW 21.6 H Plt Count Seg Neuts % (Manual) Lymphocytes % (Manual) Seg Neutrophils # Man Lymphocytes # (Manual) Monocytes # (Manual) PT INR D-Dimer ABG pH ABG pO2 ABG HCO3 ABG O2 Saturation ABG Base Excess ABG Hemoglobin Oxyhemoglobin Sodium Potassium Chloride Carbon Dioxide BUN Creatinine Glucose POC Glucose 117 H 111 H Lactic Acid Calcium Phosphorus Magnesium AST ALT Alkaline Phosphatase Lactate Dehydrogenase Troponin T C-Reactive Protein NT-Pro-B Natriuret Pep Total Protein Albumin LDL Cholesterol Direct Vitamin B12 Vancomycin Trough Crossmatch 11/24/21 11/24/21 11/24/21 04:13 05:30 11:10 WBC RBC Hgb Hct MCV MCH MCHC RDW Plt Count Seg Neuts % (Manual) Lymphocytes % (Manual) Seg Neutrophils # Man Lymphocytes # (Manual) Monocytes # (Manual) PT INR D-Dimer ABG pH ABG pO2 ABG HCO3 ABG O2 Saturation ABG Base Excess ABG Hemoglobin Oxyhemoglobin Sodium Potassium Chloride Carbon Dioxide BUN 31 H Creatinine Glucose 101 H POC Glucose 115 H 107 H Lactic Acid Calcium 7.7 L Phosphorus Magnesium AST ALT Alkaline Phosphatase Lactate Dehydrogenase Troponin T C-Reactive Protein NT-Pro-B Natriuret Pep Total Protein Albumin LDL Cholesterol Direct Vitamin B12 Vancomycin Trough Crossmatch 11/24/21 11/24/21 11/25/21 16:34 17:57 05:12 WBC RBC 3.11 L Hgb 8.2 L Hct 26.6 L MCV MCH 26 L MCHC RDW 21.3 H Plt Count Seg Neuts % (Manual) Lymphocytes % (Manual) Seg Neutrophils # Man Lymphocytes # (Manual) Monocytes # (Manual) PT INR D-Dimer ABG pH ABG pO2 ABG HCO3 ABG O2 Saturation ABG Base Excess ABG Hemoglobin Oxyhemoglobin Sodium Potassium Chloride Carbon Dioxide BUN Creatinine Glucose POC Glucose 115 H 110 H Lactic Acid Calcium Phosphorus Magnesium AST ALT Alkaline Phosphatase Lactate Dehydrogenase Troponin T C-Reactive Protein NT-Pro-B Natriuret Pep Total Protein Albumin LDL Cholesterol Direct Vitamin B12 Vancomycin Trough Crossmatch 0211/25/21 11/26/21 05:12 11:20 05:00 WBC RBC 3.30 L Hgb 8.8 L Hct 28.2 L MCV MCH 27 L MCHC RDW 20.7 H Plt Count Seg Neuts % (Manual) Lymphocytes % (Manual) Seg Neutrophils # Man Lymphocytes # (Manual) Monocytes # (Manual) PT INR D-Dimer ABG pH ABG pO2 ABG HCO3 ABG O2 Saturation ABG Base Excess ABG Hemoglobin Oxyhemoglobin Sodium Potassium Chloride Carbon Dioxide BUN 32 H Creatinine Glucose 118 H POC Glucose 118 H Lactic Acid Calcium 8.2 L Phosphorus Magnesium AST ALT Alkaline Phosphatase Lactate Dehydrogenase Troponin T C-Reactive Protein NT-Pro-B Natriuret Pep Total Protein Albumin LDL Cholesterol Direct Vitamin B12 Vancomycin Trough Crossmatch 11/26/21 11/26/21 11/26/21 05:00 05:00 05:44 WBC RBC Hgb Hct MCV MCH MCHC RDW Plt Count Seg Neuts % (Manual) Lymphocytes % (Manual) Seg Neutrophils # Man Lymphocytes # (Manual) Monocytes # (Manual) PT 16.9 H INR 1.24 H D-Dimer ABG pH ABG pO2 ABG HCO3 ABG O2 Saturation ABG Base Excess ABG Hemoglobin Oxyhemoglobin Sodium Potassium Chloride Carbon Dioxide BUN 31 H Creatinine Glucose 104 H POC Glucose 110 H Lactic Acid Calcium 7.9 L Phosphorus Magnesium AST ALT Alkaline Phosphatase Lactate Dehydrogenase Troponin T C-Reactive Protein NT-Pro-B Natriuret Pep Total Protein Albumin LDL Cholesterol Direct Vitamin B12 Vancomycin Trough Crossmatch 11/26/21 11/27/21 11/27/21 23:55 07:40 07:40 WBC RBC 3.18 L Hgb 8.5 L Hct 27.0 L MCV MCH 27 L MCHC RDW 21.2 H Plt Count Seg Neuts % (Manual) Lymphocytes % (Manual) Seg Neutrophils # Man Lymphocytes # (Manual) Monocytes # (Manual) PT INR D-Dimer ABG pH ABG pO2 ABG HCO3 ABG O2 Saturation ABG Base Excess ABG Hemoglobin Oxyhemoglobin Sodium Potassium Chloride Carbon Dioxide BUN 27 H Creatinine Glucose 112 H POC Glucose 63 L Lactic Acid Calcium 7.6 L Phosphorus Magnesium AST ALT Alkaline Phosphatase Lactate Dehydrogenase Troponin T C-Reactive Protein NT-Pro-B Natriuret Pep Total Protein Albumin LDL Cholesterol Direct Vitamin B12 Vancomycin Trough Crossmatch 11/27/21 11/27/21 11/27/21 12:04 13:40 13:40 WBC RBC 3.31 L Hgb 8.7 L Hct 28.0 L MCV MCH 26 L MCHC RDW 20.7 H Plt Count Seg Neuts % (Manual) Lymphocytes % (Manual) Seg Neutrophils # Man Lymphocytes # (Manual) Monocytes # (Manual) PT INR D-Dimer ABG pH ABG pO2 ABG HCO3 ABG O2 Saturation ABG Base Excess ABG Hemoglobin Oxyhemoglobin Sodium 136 L Potassium Chloride Carbon Dioxide BUN 25 H Creatinine Glucose 127 H POC Glucose 109 H Lactic Acid Calcium 7.6 L Phosphorus Magnesium 1.40 L AST ALT Alkaline Phosphatase Lactate Dehydrogenase Troponin T C-Reactive Protein NT-Pro-B Natriuret Pep Total Protein Albumin LDL Cholesterol Direct Vitamin B12 Vancomycin Trough Crossmatch 11/27/21 11/27/21 11/28/21 17:44 23:33 12:20 WBC RBC Hgb Hct MCV MCH MCHC RDW Plt Count Seg Neuts % (Manual) Lymphocytes % (Manual) Seg Neutrophils # Man Lymphocytes # (Manual) Monocytes # (Manual) PT INR D-Dimer ABG pH ABG pO2 ABG HCO3 ABG O2 Saturation ABG Base Excess ABG Hemoglobin Oxyhemoglobin Sodium Potassium Chloride Carbon Dioxide BUN Creatinine Glucose POC Glucose 107 H 108 H 114 H Lactic Acid Calcium Phosphorus Magnesium AST ALT Alkaline Phosphatase Lactate Dehydrogenase Troponin T C-Reactive Protein NT-Pro-B Natriuret Pep Total Protein Albumin LDL Cholesterol Direct Vitamin B12 Vancomycin Trough Crossmatch 11/29/21 11/29/21 11/29/21 00:09 03:20 03:20 WBC RBC 3.05 L Hgb 8.2 L Hct 25.8 L MCV MCH 27 L MCHC RDW 20.9 H Plt Count Seg Neuts % (Manual) Lymphocytes % (Manual) Seg Neutrophils # Man Lymphocytes # (Manual) Monocytes # (Manual) PT INR D-Dimer ABG pH ABG pO2 ABG HCO3 ABG O2 Saturation ABG Base Excess ABG Hemoglobin Oxyhemoglobin Sodium 133 L Potassium Chloride Carbon Dioxide BUN 24 H Creatinine Glucose 137 H POC Glucose 134 H Lactic Acid Calcium 7.4 L Phosphorus Magnesium AST ALT Alkaline Phosphatase Lactate Dehydrogenase Troponin T C-Reactive Protein NT-Pro-B Natriuret Pep Total Protein Albumin LDL Cholesterol Direct Vitamin B12 Vancomycin Trough Crossmatch 11/29/21 11/29/21 11/29/21 05:38 11:39 17:11 WBC RBC Hgb Hct MCV MCH MCHC RDW Plt Count Seg Neuts % (Manual) Lymphocytes % (Manual) Seg Neutrophils # Man Lymphocytes # (Manual) Monocytes # (Manual) PT INR D-Dimer ABG pH ABG pO2 ABG HCO3 ABG O2 Saturation ABG Base Excess ABG Hemoglobin Oxyhemoglobin Sodium Potassium Chloride Carbon Dioxide BUN Creatinine Glucose POC Glucose 117 H 143 H 124 H Lactic Acid Calcium Phosphorus Magnesium AST ALT Alkaline Phosphatase Lactate Dehydrogenase Troponin T C-Reactive Protein NT-Pro-B Natriuret Pep Total Protein Albumin LDL Cholesterol Direct Vitamin B12 Vancomycin Trough Crossmatch 11/29/21 11/30/21 11/30/21 20:15 05:40 05:40 WBC 12.6 H RBC 3.41 L Hgb 9.1 L Hct 28.9 L MCV MCH 27 L MCHC RDW 20.4 H Plt Count Seg Neuts % (Manual) Lymphocytes % (Manual) Seg Neutrophils # Man Lymphocytes # (Manual) Monocytes # (Manual) PT INR D-Dimer ABG pH ABG pO2 ABG HCO3 ABG O2 Saturation ABG Base Excess ABG Hemoglobin Oxyhemoglobin Sodium Potassium Chloride Carbon Dioxide BUN 24 H Creatinine Glucose 131 H POC Glucose Lactic Acid Calcium 7.6 L Phosphorus Magnesium AST ALT Alkaline Phosphatase Lactate Dehydrogenase Troponin T 0.045 H C-Reactive Protein NT-Pro-B Natriuret Pep Total Protein Albumin LDL Cholesterol Direct 25 L Vitamin B12 Vancomycin Trough Crossmatch 11/30/21 11/30/21 12/01/21 11:29 16:51 05:00 WBC RBC 2.97 L Hgb 8.0 L Hct 25.0 L MCV MCH 27 L MCHC RDW 20.8 H Plt Count Seg Neuts % (Manual) Lymphocytes % (Manual) Seg Neutrophils # Man Lymphocytes # (Manual) Monocytes # (Manual) PT INR D-Dimer ABG pH ABG pO2 ABG HCO3 ABG O2 Saturation ABG Base Excess ABG Hemoglobin Oxyhemoglobin Sodium Potassium Chloride Carbon Dioxide BUN Creatinine Glucose POC Glucose 123 H 114 H Lactic Acid Calcium Phosphorus Magnesium AST ALT Alkaline Phosphatase Lactate Dehydrogenase Troponin T C-Reactive Protein NT-Pro-B Natriuret Pep Total Protein Albumin LDL Cholesterol Direct Vitamin B12 Vancomycin Trough Crossmatch 12/01/21 12/01/21 12/01/21 05:00 05:25 11:54 WBC RBC Hgb Hct MCV MCH MCHC RDW Plt Count Seg Neuts % (Manual) Lymphocytes % (Manual) Seg Neutrophils # Man Lymphocytes # (Manual) Monocytes # (Manual) PT INR D-Dimer ABG pH ABG pO2 ABG HCO3 ABG O2 Saturation ABG Base Excess ABG Hemoglobin Oxyhemoglobin Sodium 136 L Potassium Chloride Carbon Dioxide BUN 24 H Creatinine Glucose 117 H POC Glucose 108 H 107 H Lactic Acid Calcium 7.5 L Phosphorus Magnesium 1.60 L AST ALT Alkaline Phosphatase Lactate Dehydrogenase Troponin T C-Reactive Protein NT-Pro-B Natriuret Pep Total Protein Albumin LDL Cholesterol Direct Vitamin B12 Vancomycin Trough Crossmatch 12/01/21 12/02/21 12/02/21 17:40 00:07 04:20 WBC RBC 2.92 L Hgb 7.7 L Hct 24.3 L MCV MCH 26 L MCHC RDW 20.5 H Plt Count Seg Neuts % (Manual) Lymphocytes % (Manual) Seg Neutrophils # Man Lymphocytes # (Manual) Monocytes # (Manual) PT INR D-Dimer ABG pH ABG pO2 ABG HCO3 ABG O2 Saturation ABG Base Excess ABG Hemoglobin Oxyhemoglobin Sodium Potassium Chloride Carbon Dioxide BUN Creatinine Glucose POC Glucose 123 H 110 H Lactic Acid Calcium Phosphorus Magnesium AST ALT Alkaline Phosphatase Lactate Dehydrogenase Troponin T C-Reactive Protein NT-Pro-B Natriuret Pep Total Protein Albumin LDL Cholesterol Direct Vitamin B12 Vancomycin Trough Crossmatch 12/02/21 12/02/21 12/02/21 04:20 11:17 18:20 WBC RBC Hgb Hct MCV MCH MCHC RDW Plt Count Seg Neuts % (Manual) Lymphocytes % (Manual) Seg Neutrophils # Man Lymphocytes # (Manual) Monocytes # (Manual) PT INR D-Dimer ABG pH ABG pO2 ABG HCO3 ABG O2 Saturation ABG Base Excess ABG Hemoglobin Oxyhemoglobin Sodium 135 L Potassium Chloride Carbon Dioxide BUN 26 H Creatinine Glucose 121 H POC Glucose 117 H 113 H Lactic Acid Calcium 7.4 L Phosphorus Magnesium AST ALT Alkaline Phosphatase Lactate Dehydrogenase Troponin T C-Reactive Protein NT-Pro-B Natriuret Pep Total Protein Albumin LDL Cholesterol Direct Vitamin B12 Vancomycin Trough Crossmatch 12/03/21 12/03/21 12/03/21 00:12 04:00 04:00 WBC RBC 2.99 L Hgb 7.8 L Hct 24.6 L MCV MCH 26 L MCHC RDW 20.2 H Plt Count Seg Neuts % (Manual) Lymphocytes % (Manual) Seg Neutrophils # Man Lymphocytes # (Manual) Monocytes # (Manual) PT INR D-Dimer ABG pH ABG pO2 ABG HCO3 ABG O2 Saturation ABG Base Excess ABG Hemoglobin Oxyhemoglobin Sodium 136 L Potassium Chloride Carbon Dioxide BUN 27 H Creatinine Glucose 133 H POC Glucose 121 H Lactic Acid Calcium 7.5 L Phosphorus Magnesium AST ALT Alkaline Phosphatase Lactate Dehydrogenase Troponin T C-Reactive Protein NT-Pro-B Natriuret Pep Total Protein Albumin LDL Cholesterol Direct Vitamin B12 Vancomycin Trough Crossmatch 12/03/21 12/03/21 12/03/21 06:30 11:13 16:00 WBC RBC Hgb Hct MCV MCH MCHC RDW Plt Count Seg Neuts % (Manual) Lymphocytes % (Manual) Seg Neutrophils # Man Lymphocytes # (Manual) Monocytes # (Manual) PT INR D-Dimer ABG pH ABG pO2 ABG HCO3 ABG O2 Saturation ABG Base Excess ABG Hemoglobin Oxyhemoglobin Sodium Potassium Chloride Carbon Dioxide BUN Creatinine Glucose POC Glucose 129 H 125 H 125 H Lactic Acid Calcium Phosphorus Magnesium AST ALT Alkaline Phosphatase Lactate Dehydrogenase Troponin T C-Reactive Protein NT-Pro-B Natriuret Pep Total Protein Albumin LDL Cholesterol Direct Vitamin B12 Vancomycin Trough Crossmatch 12/03/21 12/04/21 12/04/21 23:32 04:00 05:36 WBC RBC Hgb Hct MCV MCH MCHC RDW Plt Count Seg Neuts % (Manual) Lymphocytes % (Manual) Seg Neutrophils # Man Lymphocytes # (Manual) Monocytes # (Manual) PT INR D-Dimer ABG pH ABG pO2 ABG HCO3 ABG O2 Saturation ABG Base Excess ABG Hemoglobin Oxyhemoglobin Sodium Potassium 3.5 L Chloride Carbon Dioxide BUN 26 H Creatinine 0.5 L Glucose 151 H POC Glucose 133 H 142 H Lactic Acid Calcium 8.3 L Phosphorus Magnesium AST ALT Alkaline Phosphatase Lactate Dehydrogenase Troponin T C-Reactive Protein NT-Pro-B Natriuret Pep Total Protein Albumin LDL Cholesterol Direct Vitamin B12 Vancomycin Trough Crossmatch 12/04/21 12/04/21 12/05/21 11:24 15:58 04:36 WBC RBC Hgb Hct MCV MCH MCHC RDW Plt Count Seg Neuts % (Manual) Lymphocytes % (Manual) Seg Neutrophils # Man Lymphocytes # (Manual) Monocytes # (Manual) PT INR D-Dimer ABG pH ABG pO2 ABG HCO3 ABG O2 Saturation ABG Base Excess ABG Hemoglobin Oxyhemoglobin Sodium Potassium Chloride Carbon Dioxide BUN 21 H Creatinine 0.5 L Glucose 119 H POC Glucose 130 H 111 H Lactic Acid Calcium 8.3 L Phosphorus Magnesium AST ALT Alkaline Phosphatase Lactate Dehydrogenase Troponin T C-Reactive Protein NT-Pro-B Natriuret Pep Total Protein Albumin LDL Cholesterol Direct Vitamin B12 Vancomycin Trough Crossmatch 12/05/21 12/05/21 12/05/21 05:15 10:40 11:12 WBC RBC 2.98 L Hgb 8.1 L Hct 24.6 L MCV MCH 27 L MCHC RDW 20.8 H Plt Count Seg Neuts % (Manual) Lymphocytes % (Manual) Seg Neutrophils # Man Lymphocytes # (Manual) Monocytes # (Manual) PT INR D-Dimer ABG pH ABG pO2 ABG HCO3 ABG O2 Saturation ABG Base Excess ABG Hemoglobin Oxyhemoglobin Sodium Potassium Chloride Carbon Dioxide BUN Creatinine Glucose POC Glucose 107 H 110 H Lactic Acid Calcium Phosphorus Magnesium AST ALT Alkaline Phosphatase Lactate Dehydrogenase Troponin T C-Reactive Protein NT-Pro-B Natriuret Pep Total Protein Albumin LDL Cholesterol Direct Vitamin B12 Vancomycin Trough Crossmatch 12/05/21 12/06/21 12/06/21 23:39 04:25 04:25 WBC RBC 2.95 L Hgb 7.9 L Hct 24.7 L MCV MCH 27 L MCHC RDW 20.9 H Plt Count Seg Neuts % (Manual) Lymphocytes % (Manual) Seg Neutrophils # Man Lymphocytes # (Manual) Monocytes # (Manual) PT INR D-Dimer ABG pH ABG pO2 ABG HCO3 ABG O2 Saturation ABG Base Excess ABG Hemoglobin Oxyhemoglobin Sodium Potassium Chloride Carbon Dioxide BUN 22 H Creatinine 0.5 L Glucose 136 H POC Glucose 118 H Lactic Acid Calcium 8.2 L Phosphorus Magnesium AST ALT Alkaline Phosphatase Lactate Dehydrogenase Troponin T C-Reactive Protein NT-Pro-B Natriuret Pep Total Protein Albumin LDL Cholesterol Direct Vitamin B12 Vancomycin Trough Crossmatch 12/06/21 12/06/21 12/07/21 05:28 11:27 04:00 WBC RBC Hgb 7.2 L Hct 21.8 L MCV MCH MCHC RDW Plt Count Seg Neuts % (Manual) Lymphocytes % (Manual) Seg Neutrophils # Man Lymphocytes # (Manual) Monocytes # (Manual) PT INR D-Dimer ABG pH ABG pO2 ABG HCO3 ABG O2 Saturation ABG Base Excess ABG Hemoglobin Oxyhemoglobin Sodium Potassium Chloride Carbon Dioxide BUN Creatinine Glucose POC Glucose 142 H 126 H Lactic Acid Calcium Phosphorus Magnesium AST ALT Alkaline Phosphatase Lactate Dehydrogenase Troponin T C-Reactive Protein NT-Pro-B Natriuret Pep Total Protein Albumin LDL Cholesterol Direct Vitamin B12 Vancomycin Trough Crossmatch 12/07/21 12/07/21 12/07/21 04:00 05:30 11:12 WBC RBC Hgb Hct MCV MCH MCHC RDW Plt Count Seg Neuts % (Manual) Lymphocytes % (Manual) Seg Neutrophils # Man Lymphocytes # (Manual) Monocytes # (Manual) PT INR D-Dimer ABG pH ABG pO2 ABG HCO3 ABG O2 Saturation ABG Base Excess ABG Hemoglobin Oxyhemoglobin Sodium Potassium Chloride Carbon Dioxide BUN 22 H Creatinine Glucose 119 H POC Glucose 121 H 124 H Lactic Acid Calcium 8.0 L Phosphorus Magnesium AST ALT Alkaline Phosphatase Lactate Dehydrogenase Troponin T C-Reactive Protein NT-Pro-B Natriuret Pep Total Protein Albumin LDL Cholesterol Direct Vitamin B12 Vancomycin Trough Crossmatch 12/08/21 12/08/21 12/08/21 04:00 04:00 05:39 WBC RBC 2.81 L Hgb 7.7 L Hct 23.5 L MCV MCH MCHC RDW 21.2 H Plt Count Seg Neuts % (Manual) Lymphocytes % (Manual) Seg Neutrophils # Man Lymphocytes # (Manual) Monocytes # (Manual) PT INR D-Dimer ABG pH ABG pO2 ABG HCO3 ABG O2 Saturation ABG Base Excess ABG Hemoglobin Oxyhemoglobin Sodium 135 L Potassium Chloride Carbon Dioxide BUN 23 H Creatinine Glucose 109 H POC Glucose 112 H Lactic Acid Calcium Phosphorus Magnesium AST ALT Alkaline Phosphatase Lactate Dehydrogenase Troponin T C-Reactive Protein NT-Pro-B Natriuret Pep Total Protein Albumin LDL Cholesterol Direct Vitamin B12 Vancomycin Trough Crossmatch 12/08/21 12/09/21 12/09/21 11:03 04:20 04:20 WBC RBC 2.67 L Hgb 7.6 L Hct 22.1 L MCV MCH MCHC RDW 20.8 H Plt Count Seg Neuts % (Manual) Lymphocytes % (Manual) Seg Neutrophils # Man Lymphocytes # (Manual) Monocytes # (Manual) PT INR D-Dimer ABG pH ABG pO2 ABG HCO3 ABG O2 Saturation ABG Base Excess ABG Hemoglobin Oxyhemoglobin Sodium 135 L Potassium Chloride 97.8 L Carbon Dioxide BUN 26 H Creatinine Glucose 119 H POC Glucose 108 H Lactic Acid Calcium 7.7 L Phosphorus Magnesium AST ALT Alkaline Phosphatase Lactate Dehydrogenase Troponin T C-Reactive Protein NT-Pro-B Natriuret Pep Total Protein Albumin LDL Cholesterol Direct Vitamin B12 Vancomycin Trough Crossmatch 12/09/21 12/10/21 12/10/21 11:26 04:33 11:12 WBC RBC Hgb Hct MCV MCH MCHC RDW Plt Count Seg Neuts % (Manual) Lymphocytes % (Manual) Seg Neutrophils # Man Lymphocytes # (Manual) Monocytes # (Manual) PT INR D-Dimer ABG pH ABG pO2 ABG HCO3 ABG O2 Saturation ABG Base Excess ABG Hemoglobin Oxyhemoglobin Sodium 136 L Potassium Chloride Carbon Dioxide BUN 27 H Creatinine Glucose 117 H POC Glucose 110 H 117 H Lactic Acid Calcium 8.2 L Phosphorus Magnesium AST ALT Alkaline Phosphatase Lactate Dehydrogenase Troponin T C-Reactive Protein NT-Pro-B Natriuret Pep Total Protein Albumin LDL Cholesterol Direct Vitamin B12 Vancomycin Trough Crossmatch 12/10/21 12/10/21 12/11/21 16:02 23:31 04:35 WBC RBC 2.57 L Hgb 7.0 L Hct 21.4 L MCV MCH 27 L MCHC RDW 21.1 H Plt Count Seg Neuts % (Manual) Lymphocytes % (Manual) Seg Neutrophils # Man Lymphocytes # (Manual) Monocytes # (Manual) PT INR D-Dimer ABG pH ABG pO2 ABG HCO3 ABG O2 Saturation ABG Base Excess ABG Hemoglobin Oxyhemoglobin Sodium Potassium Chloride Carbon Dioxide BUN Creatinine Glucose POC Glucose 137 H 111 H Lactic Acid Calcium Phosphorus Magnesium AST ALT Alkaline Phosphatase Lactate Dehydrogenase Troponin T C-Reactive Protein NT-Pro-B Natriuret Pep Total Protein Albumin LDL Cholesterol Direct Vitamin B12 Vancomycin Trough Crossmatch 12/11/21 12/11/21 12/11/21 04:35 12:46 16:07 WBC RBC Hgb Hct MCV MCH MCHC RDW Plt Count Seg Neuts % (Manual) Lymphocytes % (Manual) Seg Neutrophils # Man Lymphocytes # (Manual) Monocytes # (Manual) PT INR D-Dimer ABG pH ABG pO2 ABG HCO3 ABG O2 Saturation ABG Base Excess ABG Hemoglobin Oxyhemoglobin Sodium 136 L Potassium Chloride Carbon Dioxide BUN 27 H Creatinine Glucose 112 H POC Glucose 115 H 111 H Lactic Acid Calcium 7.6 L Phosphorus Magnesium AST ALT Alkaline Phosphatase Lactate Dehydrogenase Troponin T C-Reactive Protein NT-Pro-B Natriuret Pep Total Protein Albumin LDL Cholesterol Direct Vitamin B12 Vancomycin Trough Crossmatch 12/11/21 12/12/21 12/12/21 23:42 04:30 04:30 WBC RBC 2.60 L Hgb 7.1 L Hct 21.5 L MCV MCH 27 L MCHC RDW 20.3 H Plt Count Seg Neuts % (Manual) Lymphocytes % (Manual) Seg Neutrophils # Man Lymphocytes # (Manual) Monocytes # (Manual) PT INR D-Dimer ABG pH ABG pO2 ABG HCO3 ABG O2 Saturation ABG Base Excess ABG Hemoglobin Oxyhemoglobin Sodium 135 L Potassium Chloride 97.9 L Carbon Dioxide BUN 26 H Creatinine 0.5 L Glucose 138 H POC Glucose 115 H Lactic Acid Calcium 8.2 L Phosphorus Magnesium AST ALT Alkaline Phosphatase Lactate Dehydrogenase Troponin T C-Reactive Protein NT-Pro-B Natriuret Pep Total Protein Albumin LDL Cholesterol Direct Vitamin B12 Vancomycin Trough Crossmatch 12/12/21 12/12/21 12/12/21 04:30 05:10 11:51 WBC RBC Hgb Hct MCV MCH MCHC RDW Plt Count Seg Neuts % (Manual) Lymphocytes % (Manual) Seg Neutrophils # Man Lymphocytes # (Manual) Monocytes # (Manual) PT INR D-Dimer ABG pH ABG pO2 ABG HCO3 ABG O2 Saturation ABG Base Excess ABG Hemoglobin Oxyhemoglobin Sodium Potassium Chloride Carbon Dioxide BUN Creatinine Glucose POC Glucose 119 H 119 H Lactic Acid Calcium Phosphorus Magnesium AST ALT Alkaline Phosphatase Lactate Dehydrogenase Troponin T C-Reactive Protein NT-Pro-B Natriuret Pep Total Protein Albumin LDL Cholesterol Direct Vitamin B12 Vancomycin Trough Crossmatch See Detail 12/13/21 12/13/21 12/13/21 00:52 04:00 04:00 WBC RBC 2.73 L Hgb 7.4 L Hct 22.8 L MCV MCH 27 L MCHC RDW 20.5 H Plt Count Seg Neuts % (Manual) Lymphocytes % (Manual) Seg Neutrophils # Man Lymphocytes # (Manual) Monocytes # (Manual) PT INR D-Dimer ABG pH ABG pO2 ABG HCO3 ABG O2 Saturation ABG Base Excess ABG Hemoglobin Oxyhemoglobin Sodium 134 L Potassium Chloride 96.7 L Carbon Dioxide BUN 23 H Creatinine 0.5 L Glucose 131 H POC Glucose 131 H Lactic Acid Calcium 8.1 L Phosphorus Magnesium AST ALT Alkaline Phosphatase Lactate Dehydrogenase Troponin T C-Reactive Protein NT-Pro-B Natriuret Pep Total Protein Albumin LDL Cholesterol Direct Vitamin B12 Vancomycin Trough Crossmatch 12/13/21 12/13/21 12/13/21 05:23 12:11 17:18 WBC RBC Hgb Hct MCV MCH MCHC RDW Plt Count Seg Neuts % (Manual) Lymphocytes % (Manual) Seg Neutrophils # Man Lymphocytes # (Manual) Monocytes # (Manual) PT INR D-Dimer ABG pH ABG pO2 ABG HCO3 ABG O2 Saturation ABG Base Excess ABG Hemoglobin Oxyhemoglobin Sodium Potassium Chloride Carbon Dioxide BUN Creatinine Glucose POC Glucose 121 H 143 H 148 H Lactic Acid Calcium Phosphorus Magnesium AST ALT Alkaline Phosphatase Lactate Dehydrogenase Troponin T C-Reactive Protein NT-Pro-B Natriuret Pep Total Protein Albumin LDL Cholesterol Direct Vitamin B12 Vancomycin Trough Crossmatch 12/14/21 12/14/21 12/14/21 00:54 04:20 04:20 WBC RBC 2.39 L Hgb 6.5 L Hct 20.3 L MCV MCH 27 L MCHC RDW 20.3 H Plt Count Seg Neuts % (Manual) Lymphocytes % (Manual) Seg Neutrophils # Man Lymphocytes # (Manual) Monocytes # (Manual) PT INR D-Dimer ABG pH ABG pO2 ABG HCO3 ABG O2 Saturation ABG Base Excess ABG Hemoglobin Oxyhemoglobin Sodium 130 L Potassium Chloride 93.5 L Carbon Dioxide BUN 25 H Creatinine Glucose 123 H POC Glucose 123 H Lactic Acid Calcium 8.0 L Phosphorus Magnesium AST ALT Alkaline Phosphatase Lactate Dehydrogenase Troponin T C-Reactive Protein NT-Pro-B Natriuret Pep Total Protein Albumin LDL Cholesterol Direct Vitamin B12 Vancomycin Trough Crossmatch 12/14/21 12/14/21 12/14/21 05:06 08:17 10:30 WBC RBC Hgb Hct MCV MCH MCHC RDW Plt Count Seg Neuts % (Manual) Lymphocytes % (Manual) Seg Neutrophils # Man Lymphocytes # (Manual) Monocytes # (Manual) PT INR D-Dimer ABG pH ABG pO2 ABG HCO3 ABG O2 Saturation ABG Base Excess ABG Hemoglobin Oxyhemoglobin Sodium Potassium Chloride Carbon Dioxide BUN Creatinine Glucose POC Glucose 131 H 119 H Lactic Acid Calcium Phosphorus Magnesium AST ALT Alkaline Phosphatase Lactate Dehydrogenase Troponin T C-Reactive Protein NT-Pro-B Natriuret Pep Total Protein Albumin LDL Cholesterol Direct Vitamin B12 Vancomycin Trough Crossmatch See Detail 12/14/21 12/14/21 12/14/21 12:15 16:37 23:27 WBC RBC Hgb Hct MCV MCH MCHC RDW Plt Count Seg Neuts % (Manual) Lymphocytes % (Manual) Seg Neutrophils # Man Lymphocytes # (Manual) Monocytes # (Manual) PT INR D-Dimer ABG pH ABG pO2 ABG HCO3 ABG O2 Saturation ABG Base Excess ABG Hemoglobin Oxyhemoglobin Sodium Potassium Chloride Carbon Dioxide BUN Creatinine Glucose POC Glucose 147 H 141 H 130 H Lactic Acid Calcium Phosphorus Magnesium AST ALT Alkaline Phosphatase Lactate Dehydrogenase Troponin T C-Reactive Protein NT-Pro-B Natriuret Pep Total Protein Albumin LDL Cholesterol Direct Vitamin B12 Vancomycin Trough Crossmatch 12/15/21 12/15/21 12/15/21 05:00 07:00 07:00 WBC 12.3 H RBC 3.27 L Hgb 8.8 L Hct 27.5 L D MCV MCH 27 L MCHC RDW 19.0 H Plt Count Seg Neuts % (Manual) Lymphocytes % (Manual) Seg Neutrophils # Man Lymphocytes # (Manual) Monocytes # (Manual) PT INR D-Dimer ABG pH ABG pO2 ABG HCO3 ABG O2 Saturation ABG Base Excess ABG Hemoglobin Oxyhemoglobin Sodium 134 L Potassium Chloride 95.7 L Carbon Dioxide BUN 28 H Creatinine Glucose 129 H POC Glucose 129 H Lactic Acid Calcium 8.2 L Phosphorus Magnesium AST ALT Alkaline Phosphatase Lactate Dehydrogenase Troponin T C-Reactive Protein NT-Pro-B Natriuret Pep Total Protein Albumin LDL Cholesterol Direct Vitamin B12 Vancomycin Trough Crossmatch 12/15/21 12/15/21 12/15/21 11:18 16:00 23:39 WBC RBC Hgb Hct MCV MCH MCHC RDW Plt Count Seg Neuts % (Manual) Lymphocytes % (Manual) Seg Neutrophils # Man Lymphocytes # (Manual) Monocytes # (Manual) PT INR D-Dimer ABG pH ABG pO2 ABG HCO3 ABG O2 Saturation ABG Base Excess ABG Hemoglobin Oxyhemoglobin Sodium Potassium Chloride Carbon Dioxide BUN Creatinine Glucose POC Glucose 139 H 137 H 146 H Lactic Acid Calcium Phosphorus Magnesium AST ALT Alkaline Phosphatase Lactate Dehydrogenase Troponin T C-Reactive Protein NT-Pro-B Natriuret Pep Total Protein Albumin LDL Cholesterol Direct Vitamin B12 Vancomycin Trough Crossmatch 12/16/21 12/16/21 12/16/21 05:24 10:21 10:21 WBC 15.3 H RBC 3.24 L Hgb 8.9 L Hct 27.7 L MCV MCH MCHC RDW 19.0 H Plt Count Seg Neuts % (Manual) Lymphocytes % (Manual) Seg Neutrophils # Man Lymphocytes # (Manual) Monocytes # (Manual) PT INR D-Dimer ABG pH ABG pO2 ABG HCO3 ABG O2 Saturation ABG Base Excess ABG Hemoglobin Oxyhemoglobin Sodium 131 L Potassium 3.5 L Chloride 92.7 L Carbon Dioxide BUN 36 H Creatinine Glucose 160 H POC Glucose 121 H Lactic Acid Calcium Phosphorus Magnesium 1.60 L AST ALT Alkaline Phosphatase Lactate Dehydrogenase Troponin T C-Reactive Protein NT-Pro-B Natriuret Pep Total Protein Albumin LDL Cholesterol Direct Vitamin B12 Vancomycin Trough Crossmatch 12/16/21 12/16/21 12/16/21 11:21 18:28 20:52 WBC RBC Hgb Hct MCV MCH MCHC RDW Plt Count Seg Neuts % (Manual) Lymphocytes % (Manual) Seg Neutrophils # Man Lymphocytes # (Manual) Monocytes # (Manual) PT INR D-Dimer ABG pH 7.479 H ABG pO2 79.3 L ABG HCO3 27.3 H ABG O2 Saturation ABG Base Excess 3.6 H ABG Hemoglobin 9.1 L Oxyhemoglobin 94.9 L Sodium Potassium Chloride Carbon Dioxide BUN Creatinine Glucose POC Glucose 153 H 132 H Lactic Acid Calcium Phosphorus Magnesium AST ALT Alkaline Phosphatase Lactate Dehydrogenase Troponin T C-Reactive Protein NT-Pro-B Natriuret Pep Total Protein Albumin LDL Cholesterol Direct Vitamin B12 Vancomycin Trough Crossmatch 12/16/21 12/17/21 12/17/21 23:30 04:25 04:25 WBC 12.3 H RBC 2.16 L Hgb 6.0 L Hct 18.1 L* D MCV MCH MCHC RDW 19.4 H Plt Count Seg Neuts % (Manual) Lymphocytes % (Manual) Seg Neutrophils # Man Lymphocytes # (Manual) Monocytes # (Manual) PT INR D-Dimer ABG pH ABG pO2 ABG HCO3 ABG O2 Saturation ABG Base Excess ABG Hemoglobin Oxyhemoglobin Sodium 132 L Potassium 3.2 L Chloride 112.0 H Carbon Dioxide BUN 32 H Creatinine Glucose 122 H POC Glucose 137 H Lactic Acid Calcium 6.8 L D Phosphorus Magnesium AST ALT Alkaline Phosphatase Lactate Dehydrogenase Troponin T C-Reactive Protein NT-Pro-B Natriuret Pep Total Protein Albumin LDL Cholesterol Direct Vitamin B12 Vancomycin Trough Crossmatch 12/17/21 12/17/21 12/17/21 05:30 11:49 14:45 WBC RBC Hgb 9.7 L D Hct MCV MCH MCHC RDW Plt Count Seg Neuts % (Manual) Lymphocytes % (Manual) Seg Neutrophils # Man Lymphocytes # (Manual) Monocytes # (Manual) PT INR D-Dimer ABG pH ABG pO2 ABG HCO3 ABG O2 Saturation ABG Base Excess ABG Hemoglobin Oxyhemoglobin Sodium Potassium Chloride Carbon Dioxide BUN Creatinine Glucose POC Glucose 137 H 143 H Lactic Acid Calcium Phosphorus Magnesium AST ALT Alkaline Phosphatase Lactate Dehydrogenase Troponin T C-Reactive Protein NT-Pro-B Natriuret Pep Total Protein Albumin LDL Cholesterol Direct Vitamin B12 Vancomycin Trough Crossmatch 12/17/21 12/18/21 12/18/21 17:01 05:04 05:04 WBC 13.8 H RBC 3.44 L Hgb 9.9 L Hct 28.8 L MCV MCH MCHC RDW 18.1 H Plt Count Seg Neuts % (Manual) Lymphocytes % (Manual) Seg Neutrophils # Man Lymphocytes # (Manual) Monocytes # (Manual) PT INR D-Dimer ABG pH ABG pO2 ABG HCO3 ABG O2 Saturation ABG Base Excess ABG Hemoglobin Oxyhemoglobin Sodium 132 L Potassium Chloride 97.4 L Carbon Dioxide BUN 38 H Creatinine Glucose 134 H POC Glucose 132 H Lactic Acid Calcium Phosphorus Magnesium AST ALT Alkaline Phosphatase Lactate Dehydrogenase Troponin T C-Reactive Protein NT-Pro-B Natriuret Pep Total Protein Albumin LDL Cholesterol Direct Vitamin B12 Vancomycin Trough Crossmatch 12/18/21 12/18/21 12/18/21 05:28 10:57 16:27 WBC RBC Hgb Hct MCV MCH MCHC RDW Plt Count Seg Neuts % (Manual) Lymphocytes % (Manual) Seg Neutrophils # Man Lymphocytes # (Manual) Monocytes # (Manual) PT INR D-Dimer ABG pH ABG pO2 ABG HCO3 ABG O2 Saturation ABG Base Excess ABG Hemoglobin Oxyhemoglobin Sodium Potassium Chloride Carbon Dioxide BUN Creatinine Glucose POC Glucose 118 H 132 H 130 H Lactic Acid Calcium Phosphorus Magnesium AST ALT Alkaline Phosphatase Lactate Dehydrogenase Troponin T C-Reactive Protein NT-Pro-B Natriuret Pep Total Protein Albumin LDL Cholesterol Direct Vitamin B12 Vancomycin Trough Crossmatch 12/19/21 12/19/21 12/19/21 00:02 04:41 04:41 WBC 16.0 H RBC 3.45 L Hgb 9.7 L Hct 29.1 L MCV MCH MCHC RDW 17.8 H Plt Count Seg Neuts % (Manual) Lymphocytes % (Manual) Seg Neutrophils # Man Lymphocytes # (Manual) Monocytes # (Manual) PT INR D-Dimer ABG pH ABG pO2 ABG HCO3 ABG O2 Saturation ABG Base Excess ABG Hemoglobin Oxyhemoglobin Sodium 133 L Potassium Chloride 97.9 L Carbon Dioxide BUN 36 H Creatinine 0.5 L Glucose 126 H POC Glucose 127 H Lactic Acid Calcium 8.3 L Phosphorus Magnesium AST ALT Alkaline Phosphatase Lactate Dehydrogenase Troponin T C-Reactive Protein NT-Pro-B Natriuret Pep Total Protein Albumin LDL Cholesterol Direct Vitamin B12 Vancomycin Trough Crossmatch 12/19/21 12/19/21 12/19/21 05:26 12:20 16:43 WBC RBC Hgb Hct MCV MCH MCHC RDW Plt Count Seg Neuts % (Manual) Lymphocytes % (Manual) Seg Neutrophils # Man Lymphocytes # (Manual) Monocytes # (Manual) PT INR D-Dimer ABG pH ABG pO2 ABG HCO3 ABG O2 Saturation ABG Base Excess ABG Hemoglobin Oxyhemoglobin Sodium Potassium Chloride Carbon Dioxide BUN Creatinine Glucose POC Glucose 119 H 145 H 126 H Lactic Acid Calcium Phosphorus Magnesium AST ALT Alkaline Phosphatase Lactate Dehydrogenase Troponin T C-Reactive Protein NT-Pro-B Natriuret Pep Total Protein Albumin LDL Cholesterol Direct Vitamin B12 Vancomycin Trough Crossmatch 12/19/21 12/20/21 12/20/21 23:30 04:54 04:54 WBC 12.3 H RBC 3.54 L Hgb 10.0 L Hct 29.5 L MCV MCH MCHC RDW 17.8 H Plt Count Seg Neuts % (Manual) 88.0 H Lymphocytes % (Manual) 6.0 L Seg Neutrophils # Man 10.8 H Lymphocytes # (Manual) 0.7 L Monocytes # (Manual) PT INR D-Dimer ABG pH ABG pO2 ABG HCO3 ABG O2 Saturation ABG Base Excess ABG Hemoglobin Oxyhemoglobin Sodium 131 L Potassium Chloride 96.2 L Carbon Dioxide BUN 36 H Creatinine 0.5 L Glucose 130 H POC Glucose 117 H Lactic Acid Calcium Phosphorus Magnesium AST ALT Alkaline Phosphatase Lactate Dehydrogenase Troponin T C-Reactive Protein NT-Pro-B Natriuret Pep Total Protein Albumin LDL Cholesterol Direct Vitamin B12 Vancomycin Trough Crossmatch 12/20/21 12/20/21 12/20/21 05:20 11:51 17:30 WBC RBC Hgb Hct MCV MCH MCHC RDW Plt Count Seg Neuts % (Manual) Lymphocytes % (Manual) Seg Neutrophils # Man Lymphocytes # (Manual) Monocytes # (Manual) PT INR D-Dimer ABG pH ABG pO2 ABG HCO3 ABG O2 Saturation ABG Base Excess ABG Hemoglobin Oxyhemoglobin Sodium Potassium Chloride Carbon Dioxide BUN Creatinine Glucose POC Glucose 126 H 119 H 127 H Lactic Acid Calcium Phosphorus Magnesium AST ALT Alkaline Phosphatase Lactate Dehydrogenase Troponin T C-Reactive Protein NT-Pro-B Natriuret Pep Total Protein Albumin LDL Cholesterol Direct Vitamin B12 Vancomycin Trough Crossmatch 12/21/21 12/21/21 12/21/21 00:45 04:21 04:21 WBC RBC 3.47 L Hgb 9.4 L Hct 29.2 L MCV MCH 27 L MCHC RDW 18.1 H Plt Count Seg Neuts % (Manual) Lymphocytes % (Manual) Seg Neutrophils # Man Lymphocytes # (Manual) Monocytes # (Manual) PT INR D-Dimer ABG pH ABG pO2 ABG HCO3 ABG O2 Saturation ABG Base Excess ABG Hemoglobin Oxyhemoglobin Sodium 134 L Potassium Chloride Carbon Dioxide BUN 35 H Creatinine 0.5 L Glucose 122 H POC Glucose 125 H Lactic Acid Calcium 8.2 L Phosphorus Magnesium AST ALT Alkaline Phosphatase Lactate Dehydrogenase Troponin T C-Reactive Protein NT-Pro-B Natriuret Pep Total Protein Albumin LDL Cholesterol Direct Vitamin B12 Vancomycin Trough Crossmatch 12/21/21 12/21/21 12/21/21 05:38 11:29 16:16 WBC RBC Hgb Hct MCV MCH MCHC RDW Plt Count Seg Neuts % (Manual) Lymphocytes % (Manual) Seg Neutrophils # Man Lymphocytes # (Manual) Monocytes # (Manual) PT INR D-Dimer ABG pH ABG pO2 ABG HCO3 ABG O2 Saturation ABG Base Excess ABG Hemoglobin Oxyhemoglobin Sodium Potassium Chloride Carbon Dioxide BUN Creatinine Glucose POC Glucose 127 H 121 H 113 H Lactic Acid Calcium Phosphorus Magnesium AST ALT Alkaline Phosphatase Lactate Dehydrogenase Troponin T C-Reactive Protein NT-Pro-B Natriuret Pep Total Protein Albumin LDL Cholesterol Direct Vitamin B12 Vancomycin Trough Crossmatch 12/22/21 12/22/21 12/23/21 04:58 04:58 06:40 WBC 11.5 H RBC 3.43 L Hgb 9.8 L Hct 28.7 L MCV MCH MCHC RDW 18.5 H 17.9 H Plt Count Seg Neuts % (Manual) Lymphocytes % (Manual) Seg Neutrophils # Man Lymphocytes # (Manual) Monocytes # (Manual) PT INR D-Dimer ABG pH ABG pO2 ABG HCO3 ABG O2 Saturation ABG Base Excess ABG Hemoglobin Oxyhemoglobin Sodium 130 L Potassium Chloride 97.8 L Carbon Dioxide BUN 31 H Creatinine 0.5 L Glucose 122 H POC Glucose Lactic Acid Calcium 7.9 L Phosphorus Magnesium AST ALT Alkaline Phosphatase Lactate Dehydrogenase Troponin T C-Reactive Protein NT-Pro-B Natriuret Pep Total Protein Albumin LDL Cholesterol Direct Vitamin B12 Vancomycin Trough Crossmatch 12/23/21 12/23/21 12/24/21 06:40 23:25 04:24 WBC 11.7 H RBC Hgb 9.8 L Hct MCV MCH 26 L MCHC RDW 18.1 H Plt Count Seg Neuts % (Manual) Lymphocytes % (Manual) Seg Neutrophils # Man Lymphocytes # (Manual) Monocytes # (Manual) PT INR D-Dimer ABG pH ABG pO2 ABG HCO3 ABG O2 Saturation ABG Base Excess ABG Hemoglobin Oxyhemoglobin Sodium 136 L Potassium Chloride Carbon Dioxide BUN 27 H Creatinine 0.4 L Glucose 107 H POC Glucose 110 H Lactic Acid Calcium 8.1 L Phosphorus Magnesium AST ALT Alkaline Phosphatase Lactate Dehydrogenase Troponin T C-Reactive Protein NT-Pro-B Natriuret Pep Total Protein Albumin LDL Cholesterol Direct Vitamin B12 Vancomycin Trough Crossmatch 12/24/21 12/24/21 12/24/21 04:24 11:08 15:45 WBC RBC Hgb Hct MCV MCH MCHC RDW Plt Count Seg Neuts % (Manual) Lymphocytes % (Manual) Seg Neutrophils # Man Lymphocytes # (Manual) Monocytes # (Manual) PT INR D-Dimer ABG pH ABG pO2 ABG HCO3 ABG O2 Saturation ABG Base Excess ABG Hemoglobin Oxyhemoglobin Sodium 132 L Potassium Chloride Carbon Dioxide BUN 27 H Creatinine 0.3 L Glucose 108 H POC Glucose 116 H 107 H Lactic Acid Calcium Phosphorus Magnesium AST ALT Alkaline Phosphatase Lactate Dehydrogenase Troponin T C-Reactive Protein NT-Pro-B Natriuret Pep Total Protein Albumin LDL Cholesterol Direct Vitamin B12 Vancomycin Trough Crossmatch 12/24/21 12/25/21 12/25/21 23:43 05:29 11:48 WBC RBC Hgb Hct MCV MCH MCHC RDW Plt Count Seg Neuts % (Manual) Lymphocytes % (Manual) Seg Neutrophils # Man Lymphocytes # (Manual) Monocytes # (Manual) PT INR D-Dimer ABG pH ABG pO2 ABG HCO3 ABG O2 Saturation ABG Base Excess ABG Hemoglobin Oxyhemoglobin Sodium Potassium Chloride Carbon Dioxide BUN Creatinine Glucose POC Glucose 123 H 107 H 119 H Lactic Acid Calcium Phosphorus Magnesium AST ALT Alkaline Phosphatase Lactate Dehydrogenase Troponin T C-Reactive Protein NT-Pro-B Natriuret Pep Total Protein Albumin LDL Cholesterol Direct Vitamin B12 Vancomycin Trough Crossmatch 12/26/21 12/26/21 12/26/21 00:06 05:56 07:51 WBC 11.4 H RBC 3.40 L Hgb 9.3 L Hct 28.3 L MCV MCH 27 L MCHC RDW 18.2 H Plt Count Seg Neuts % (Manual) Lymphocytes % (Manual) Seg Neutrophils # Man Lymphocytes # (Manual) Monocytes # (Manual) PT INR D-Dimer ABG pH ABG pO2 ABG HCO3 ABG O2 Saturation ABG Base Excess ABG Hemoglobin Oxyhemoglobin Sodium Potassium Chloride Carbon Dioxide BUN Creatinine Glucose POC Glucose 133 H 107 H Lactic Acid Calcium Phosphorus Magnesium AST ALT Alkaline Phosphatase Lactate Dehydrogenase Troponin T C-Reactive Protein NT-Pro-B Natriuret Pep Total Protein Albumin LDL Cholesterol Direct Vitamin B12 Vancomycin Trough Crossmatch 12/26/21 12/26/21 12/26/21 07:51 11:43 17:06 WBC RBC Hgb Hct MCV MCH MCHC RDW Plt Count Seg Neuts % (Manual) Lymphocytes % (Manual) Seg Neutrophils # Man Lymphocytes # (Manual) Monocytes # (Manual) PT INR D-Dimer ABG pH ABG pO2 ABG HCO3 ABG O2 Saturation ABG Base Excess ABG Hemoglobin Oxyhemoglobin Sodium 136 L Potassium Chloride Carbon Dioxide BUN 25 H Creatinine 0.3 L Glucose 131 H POC Glucose 119 H 128 H Lactic Acid Calcium Phosphorus Magnesium AST ALT Alkaline Phosphatase Lactate Dehydrogenase Troponin T C-Reactive Protein NT-Pro-B Natriuret Pep Total Protein Albumin LDL Cholesterol Direct Vitamin B12 Vancomycin Trough Crossmatch 12/28/21 12/28/21 12/29/21 09:05 09:05 04:40 WBC RBC 3.19 L Hgb 8.9 L Hct 26.4 L MCV MCH 27 L MCHC RDW 18.4 H 17.9 H Plt Count Seg Neuts % (Manual) Lymphocytes % (Manual) Seg Neutrophils # Man Lymphocytes # (Manual) Monocytes # (Manual) PT INR D-Dimer ABG pH ABG pO2 ABG HCO3 ABG O2 Saturation ABG Base Excess ABG Hemoglobin Oxyhemoglobin Sodium 135 L Potassium Chloride 97.8 L Carbon Dioxide BUN 18 H Creatinine 0.3 L Glucose POC Glucose Lactic Acid Calcium Phosphorus Magnesium AST ALT Alkaline Phosphatase Lactate Dehydrogenase Troponin T C-Reactive Protein NT-Pro-B Natriuret Pep Total Protein Albumin LDL Cholesterol Direct Vitamin B12 Vancomycin Trough Crossmatch 12/29/21 12/29/21 12/30/21 04:40 12:47 04:05 WBC RBC 3.29 L Hgb 8.7 L Hct 27.6 L MCV MCH 27 L MCHC RDW 17.6 H Plt Count Seg Neuts % (Manual) Lymphocytes % (Manual) Seg Neutrophils # Man Lymphocytes # (Manual) Monocytes # (Manual) PT INR D-Dimer ABG pH ABG pO2 ABG HCO3 ABG O2 Saturation ABG Base Excess ABG Hemoglobin Oxyhemoglobin Sodium 136 L Potassium Chloride Carbon Dioxide BUN Creatinine 0.3 L Glucose POC Glucose 67 L Lactic Acid Calcium 8.3 L Phosphorus Magnesium AST ALT Alkaline Phosphatase Lactate Dehydrogenase Troponin T C-Reactive Protein NT-Pro-B Natriuret Pep Total Protein Albumin LDL Cholesterol Direct Vitamin B12 Vancomycin Trough Crossmatch 12/30/21 12/31/21 12/31/21 04:05 00:07 04:00 WBC RBC 3.05 L Hgb 8.5 L Hct 25.5 L MCV MCH MCHC RDW 18.2 H Plt Count Seg Neuts % (Manual) Lymphocytes % (Manual) Seg Neutrophils # Man Lymphocytes # (Manual) Monocytes # (Manual) PT INR D-Dimer ABG pH ABG pO2 ABG HCO3 ABG O2 Saturation ABG Base Excess ABG Hemoglobin Oxyhemoglobin Sodium 136 L Potassium 3.5 L Chloride Carbon Dioxide BUN Creatinine 0.4 L Glucose POC Glucose 139 H Lactic Acid Calcium Phosphorus Magnesium 1.50 L AST ALT Alkaline Phosphatase Lactate Dehydrogenase Troponin T C-Reactive Protein NT-Pro-B Natriuret Pep Total Protein Albumin LDL Cholesterol Direct Vitamin B12 Vancomycin Trough Crossmatch 12/31/21 12/31/21 12/31/21 04:00 04:52 11:23 WBC RBC Hgb Hct MCV MCH MCHC RDW Plt Count Seg Neuts % (Manual) Lymphocytes % (Manual) Seg Neutrophils # Man Lymphocytes # (Manual) Monocytes # (Manual) PT INR D-Dimer ABG pH ABG pO2 ABG HCO3 ABG O2 Saturation ABG Base Excess ABG Hemoglobin Oxyhemoglobin Sodium Potassium Chloride Carbon Dioxide BUN 19 H Creatinine 0.4 L Glucose 116 H POC Glucose 121 H 116 H Lactic Acid Calcium Phosphorus Magnesium AST ALT Alkaline Phosphatase Lactate Dehydrogenase Troponin T C-Reactive Protein NT-Pro-B Natriuret Pep Total Protein Albumin LDL Cholesterol Direct Vitamin B12 Vancomycin Trough Crossmatch 12/31/21 01/01/22 01/01/22 17:42 04:31 04:31 WBC RBC 2.83 L Hgb 7.7 L Hct 23.2 L MCV MCH 27 L MCHC RDW 18.3 H Plt Count Seg Neuts % (Manual) Lymphocytes % (Manual) Seg Neutrophils # Man Lymphocytes # (Manual) Monocytes # (Manual) PT INR D-Dimer ABG pH ABG pO2 ABG HCO3 ABG O2 Saturation ABG Base Excess ABG Hemoglobin Oxyhemoglobin Sodium 135 L Potassium Chloride 97.7 L Carbon Dioxide BUN 21 H Creatinine 0.5 L Glucose 127 H POC Glucose 107 H Lactic Acid Calcium 8.0 L Phosphorus Magnesium AST ALT Alkaline Phosphatase Lactate Dehydrogenase Troponin T C-Reactive Protein NT-Pro-B Natriuret Pep Total Protein Albumin LDL Cholesterol Direct Vitamin B12 Vancomycin Trough Crossmatch 01/01/22 01/01/22 01/01/22 05:24 11:25 18:11 WBC RBC Hgb Hct MCV MCH MCHC RDW Plt Count Seg Neuts % (Manual) Lymphocytes % (Manual) Seg Neutrophils # Man Lymphocytes # (Manual) Monocytes # (Manual) PT INR D-Dimer ABG pH ABG pO2 ABG HCO3 ABG O2 Saturation ABG Base Excess ABG Hemoglobin Oxyhemoglobin Sodium Potassium Chloride Carbon Dioxide BUN Creatinine Glucose POC Glucose 124 H 140 H 144 H Lactic Acid Calcium Phosphorus Magnesium AST ALT Alkaline Phosphatase Lactate Dehydrogenase Troponin T C-Reactive Protein NT-Pro-B Natriuret Pep Total Protein Albumin LDL Cholesterol Direct Vitamin B12 Vancomycin Trough Crossmatch 01/01/22 01/02/22 01/02/22 23:26 04:01 04:01 WBC RBC 2.57 L Hgb 7.1 L Hct 21.5 L MCV MCH MCHC RDW 18.1 H Plt Count Seg Neuts % (Manual) Lymphocytes % (Manual) Seg Neutrophils # Man Lymphocytes # (Manual) Monocytes # (Manual) PT INR D-Dimer ABG pH ABG pO2 ABG HCO3 ABG O2 Saturation ABG Base Excess ABG Hemoglobin Oxyhemoglobin Sodium 131 L Potassium 3.5 L Chloride 94.8 L Carbon Dioxide BUN 27 H Creatinine Glucose 121 H POC Glucose 121 H Lactic Acid Calcium Phosphorus Magnesium AST ALT Alkaline Phosphatase Lactate Dehydrogenase Troponin T C-Reactive Protein NT-Pro-B Natriuret Pep Total Protein Albumin LDL Cholesterol Direct Vitamin B12 Vancomycin Trough Crossmatch 01/02/22 01/02/22 01/02/22 05:30 11:10 16:08 WBC RBC Hgb Hct MCV MCH MCHC RDW Plt Count Seg Neuts % (Manual) Lymphocytes % (Manual) Seg Neutrophils # Man Lymphocytes # (Manual) Monocytes # (Manual) PT INR D-Dimer ABG pH ABG pO2 ABG HCO3 ABG O2 Saturation ABG Base Excess ABG Hemoglobin Oxyhemoglobin Sodium Potassium Chloride Carbon Dioxide BUN Creatinine Glucose POC Glucose 124 H 117 H 130 H Lactic Acid Calcium Phosphorus Magnesium AST ALT Alkaline Phosphatase Lactate Dehydrogenase Troponin T C-Reactive Protein NT-Pro-B Natriuret Pep Total Protein Albumin LDL Cholesterol Direct Vitamin B12 Vancomycin Trough Crossmatch 01/02/22 17:30 WBC RBC Hgb Hct MCV MCH MCHC RDW Plt Count Seg Neuts % (Manual) Lymphocytes % (Manual) Seg Neutrophils # Man Lymphocytes # (Manual) Monocytes # (Manual) PT INR D-Dimer ABG pH ABG pO2 ABG HCO3 ABG O2 Saturation ABG Base Excess ABG Hemoglobin Oxyhemoglobin Sodium Potassium Chloride Carbon Dioxide BUN Creatinine Glucose POC Glucose Lactic Acid Calcium Phosphorus Magnesium AST ALT Alkaline Phosphatase Lactate Dehydrogenase Troponin T C-Reactive Protein NT-Pro-B Natriuret Pep Total Protein Albumin LDL Cholesterol Direct Vitamin B12 Vancomycin Trough 22.8 H Crossmatch Chest x-ray: report reviewed, image reviewed Additional Studies: CHEST 1 VIEW 01/01/2022 9:02 AM INDICATION / CLINICAL INFORMATION: Follow up, Respiratory Failure on the vent. COMPARISON: 12/30/2021 FINDINGS: SUPPORT DEVICES: Stable, satisfactory device positioning. HEART / MEDIASTINUM: No significant abnormality. LUNGS / PLEURA: Diffuse opacities in bilateral lungs with bilateral effusions appear increased No pneumothorax. ADDITIONAL FINDINGS: No significant additional findings. IMPRESSION: 1. Worsening bilateral pulmonary opacities and effusions Allied health notes reviewed: RT
[2022-01-02] MEDS: MELATONIN 5 MG TAB PO SCH (21:13)
[2022-01-02] MEDS: traZODone 50 MG TAB PO SCH (21:15)
[2022-01-02] MEDS: PRAVASTATIN 20 MG TAB FEEDTUBE SCH (21:16)
[2022-01-03] MEDS: SUCRALFATE 1 GM/10 ML ORAL LIQD FEEDTUBE SCH ×5 (00:50→23:12)
[2022-01-03 05:21] LABS: Hematocrit 23.4 % (30.3-42.9); Hemoglobin 7.7 gm/dl (10.1-14.3); Mean Corpuscular HGB Conc 33 % (30-34); Mean Corpuscular Volume 83 fl (79-97); Platelet Count 195 K/mm3 (140-440); Red Blood Count 2.82 M/mm3 (3.65-5.03)
[2022-01-03 05:26] LABS: Blood Urea Nitrogen 30 mg/dL (7-17); Calcium 8.7 mg/dL (8.4-10.2); Hemolysis Index 1
[2022-01-03] MEDS: ONDANSETRON 4 MG/2 ML INJ IV PRN ×2 (05:28→19:49)
[2022-01-03] MEDS: LEVOTHYROXINE 125 MCG TAB FEEDTUBE SCH (05:29)
[2022-01-03 05:31] LABS: BUN/Creatinine Ratio 43
[2022-01-03] MEDS ORDERED: VANCOMYCIN PHARMACY TO DOSE IV SCH (08:00)
--- NOTE | 2022-01-03 09:02 | XRay Report ---
ABDOMEN 1 VIEW 01/03/2022 INDICATION / CLINICAL INFORMATION: ABD DISTENDED. COMPARISON: 12/28/2021 FINDINGS: TUBES / LINES: Gastrostomy tube in the left upper quadrant. BOWEL GAS PATTERN: Gas filled dilated stomach with overlying gastrostomy tube. Otherwise no abnormal gas pattern. FREE AIR / EXTRALUMINAL GAS: None seen. ADDITIONAL FINDINGS: No significant additional findings. IMPRESSION: 1. Gas filled dilated stomach with overlying gastrostomy tube. Otherwise no significant abnormal gas pattern. Signer Name: Pete Yuan DO Signed: 01/03/2022 8:58 AM Workstation Name: [id number]
[2022-01-03] MEDS: SPIRONOLACTONE 25 MG TAB FEEDTUBE SCH (09:37)
[2022-01-03] MEDS: METOPROLOL TARTRATE 25 MG TAB FEEDTUBE SCH ×2 (09:37→22:20)
[2022-01-03] MEDS: busPIRone 5 MG TAB FEEDTUBE SCH ×2 (09:37→22:20)
[2022-01-03] MEDS: MIDODRINE 5 MG TAB FEEDTUBE SCH ×3 (09:37→16:31)
[2022-01-03] MEDS: QUEtiapine 25 MG TAB FEEDTUBE SCH ×2 (09:38→22:23)
[2022-01-03] MEDS: GABAPENTIN 100 MG CAP FEEDTUBE SCH (09:38)
[2022-01-03] MEDS: HYDROcodone/ACETAMINOPHEN 10-325MG TAB FEEDTUBE SCH ×3 (09:38→19:49)
[2022-01-03] MEDS: DOCUSATE SODIUM 100 MG/10 ML ORAL LIQD FEEDTUBE SCH ×3 (09:39→22:47)
[2022-01-03] MEDS: POLYETHYLENE GLYCOL 3350 17 GM POWDER FEEDTUBE SCH (09:40)
[2022-01-03] MEDS: SENNOSIDES ORAL LIQD 8.8 MG/5 ML ORAL LIQD FEEDTUBE SCH ×3 (09:41→22:48)
[2022-01-03] MEDS: LANSOPRAZOLE 30 MG SOLUTAB FEEDTUBE SCH ×2 (09:41→22:23)
[2022-01-03] MEDS ORDERED: FUROSEMIDE 20 MG/2 ML INJ IV ONE (10:00)
[2022-01-03] MEDS: METOCLOPRAMIDE 10 MG/2 ML INJ IV SCH ×2 (13:36→22:23)
--- NOTE | 2022-01-03 14:34 | Progress Note ---
<LONNIE MAURICE - Last Filed: 01/03/22 15:37> Assessment and Plan Assessment and plan: This is a 81-year-old female with known history of diabetes mellitus, hypertension, PPM, and arthritis admitted for sepsis and acute hypoxia respiratory failure 2/2 bilateral pneumonia requiring intubation and ventilatory support Hospital Course to date: ------ 12/04: Increased agitation and anxiety overnight, remains on buspar and seroquel, trazadone added to promote rest. Patient is now working with PT, keep patient engage and awake during the day so she can rest at night. No BM for over 5 days, BR was adjusted. Patient did not tolerate PST again yesterday, continue daily PST as tolerated. Continue to titrate pressor for MAP above 65. Pending possible LTAC placement, case management to arrange. 12/05: Still not getting much rest overnight, will add melatonin for sleep. Continue to engage patient during the day and promote rest at night. TF was held due to concern for possible bleeding, H&H remains stable and stools normal this am. Resume TF and continue PPI and carafate. Remains on low dose levophed, titrate as tolerated. Continue daily PST. Possible LTAC placement, awaiting approval. 12/06: [facility] overnight. Patient rested overnight. Continue supportive measures. Daily PST as tolerated. Awaiting possible LTAC placement 12/07: [facility] overnight. Plan for Tpiece trial today. Continue current supportive measures. Possible LTAC placement 12/08: Patient placed on pressure support trial again today, started on Xanax, no acute events reported overnight. Awaiting insurance approval for LTAC. 12/09: Levophed discontinued, LTAC transfer denied, started on midodrine and Lasix, ultrasound chest pending, started on Xanax 0.[address] De León updated family at bedside today. Started on Dilaudid every 3 hours as needed. 12/10: Patient placed on CPAP trial this morning, no acute events reported overnight. Will order ultrasound-guided thoracentesis. 12/11: Patient had a thoracentesis today, will decrease Xanax dosage and continue midodrine and diuresing. Patient failed CPAP today. 12/12: Patient not tolerate CPAP trials today, no acute events reported overnight 12/13: No acute events overnight. continue PSV trials as tolerated. Daughter updated at bedside 12/14: Patient noted to be anemic today, worsened gastric occult. Patient seems to be oversedated therefore Xanax changed to as needed and fentanyl patch discontinued. We will continue to monitor hyponatremia. 12/15: [facility] overnight. s/p 1unit of PRBCs, H&H stable this am, no signs of any active bleeding. Continue daily PST as tolerated. Awaiting placement. 12/16: Hypertensive this am, Midodrine decreased. Continue daily PST. [facility] overnight 12/17: Patient Hgb dropped to 6 this am, no s/s of any active bleeding, VSS. Patient received 1unit of PRBC, will continue to trend H&H. Patient was pancul tured and back on IV Abx due to persistent fevers yesterday. ID is also back on the case. Continue IV Abx per ID and f/u on cultures data for sensitivity. Patient also failed PST yesterday, continue daily PST as tolerated. Electrolytes repleted, repeat labs in the am. 12/18: Patient blood cultures is growing GPC 4 out 4 bottles. PICC line D/Sara, patient is already on IV Abx-cefepine and Vanc and ID is following. Patient remains hemodynamically stable. Daily PST as tolerated adn PRN Benzo for anx iety. 12/19: [facility] overnight. Culture data noted, continue IV Abx per ID. Orders placed for repeat Bculture. Sánchez D/C overnight, patient is voiding. Check bladder scan as needed for retention. Patient failed PST again today. Continue daily PST as tolerated. 12/20: Fevers improved, Cultures +MRSA, on Vanco per ID. Repeat 2D Echo to r/o endocarditis. Patient continue to fail PST, PEEP increased to 8 today. Continue pulmonary hygiene and vent wean per [facility]. Sodium tab added for hyponatremia. 12/21: Remains afebrile, repeat B.culture with NGTD, 2D echo noted with no obvious vegetation noted. Continue IV Vanc per ID. Hyponatremia improved. Tolerating PST this am, Continue daily PST. 12/22: Patient on pressure support trial for approximately 4 hours today, midodrine dosage increased due to hypotension. Lasix discontinued. 12/23: Started on a.m. Seroquel dose, midodrine increased to 10 mg 3 times daily, 500 mL normal saline bolus. 12/24: Seroquel dose changed (25 every morning, 75 nightly). updated at bedside by Dr. De León. CPAP trials as tolerated. Continue vancomycin. Awaiting placement. 12/25: Continue CPAP as tolerated, added gasx for distention. Continue supportive care 12/26: Patient failed PSV this AM. no acute events overnight. 12/27: GI re-consulted due to abdominal distention. No acute events reported overnight. CPAP trials as tolerated. Dr. Mckenna will get a KUB to rule out possible obstruction. 12/28: KUB shows no acute process, CXR shows improvement. CPAP trials as tolerated. 12/29: CT Abd/pelvis noted with moderated bilateral pleural effusion, anasarca, and ascites. X1dose of IV lasix administered. D/w CCM and GI orders plan for thora and paracentesis by IR. Will also start patient on aldactone Qday. Patient is tolerating trickle feeds this am, continue TF and BR adjusted for constipation. Plan of care was discussed with patient and her at the bedside. Thorough discussion on patient's overall poor prognosis and that patient will most likely be vent dependent. Patient's voiced understanding of the info given. All questions and concerns were voiced at this time. 12/30: Patient did not tolerate thoracentesis in IR yesterday due to change in LOC and hypoxia. Plan for possible bedside thoracentesis and paracentesis today. Patient remains afebrile. Patient required roasterman IV abx therapy [id number] left, orders placed for a PICC. Patient remains with sign. Piting edema and anasarca, X1 does of PO Zaroxolyn and 2m of IV lasix given. Electrolytes repleted, repeat lab in the am. 12/31: Tolerated Rt. thoracentesis at the bedside yesterday, 1.4L removed. Patient remains stable on the vent this am, tolerating CPAP today PS dropped to 14. Recent CXR noted, left pleural effusion improved. Patient tolerated gentle diurese yesterday, good urine output reported. D/w CCM hold off on Left thoracentesis today, continue PO Aldactone and additonal zaroxolyn and IV lasix again today. F/u CXR in the am. 01/01: This am CXR noted with worsening bilateral pleural effusion. Patient is stable and tolerating PST this am, however PS is back up to 20 this am. BP is soft this am will hold off on IV diuretic for today, continue PO Aldactone. D/w CCM continue gentle diurese as tolerated. Will reassess in the am. Continue support care. 01/02: [facility] overnight. VSS this am, tolerating PST. X1dose of 25% IV Albumin following with 20mg IV Lasix today. Continue daily gentle diurese if hemodynamics tolerate it. Continue to monitor and replace electrolytes as needed 01/03: Abdominal distention and vomiting overnight, 600cc of gastric residual rem ozzy, TF held. KUB with no acute abnormality. Reglan added X2days, resume TF, and continue BR. Patient is tolerating PST this am. Hemodynamics remains stable, will continue gentle IV diurese. close monitoring to renal function and electrolytes. Assessment and Plan #MRSA Bacteremia #MRSA Pneumonia #Septic Shock POA-resolved - Presented with fevers, leukocytosis, and hypotension - COVID PCR negative - 11/04 Bcult with 3/4 group B strep bacteremia, [id number] Bculture NGTD - 11/04 2D Echo with no evidence of vegetation - New fevers on 12/16- Blood and sputum culture with MRSA - 12/16- UA is unremarkable - 12/18 repeat B.culture with NGTD - 12/19 Repeat 2D echo- with no obvious vegetation noted. EF 35-40% - ID on consult, appreciate recommendations - Continue IV Abx- Vanco per ID recs. roasterman therapy, need a PICC - Trend CBC #Acute Hypoxic Respiratory Failure 2/ #MRSA Pneumonia #Bilateral Pleural Effusion #Right Pneumothorax-resolved - COVID PCR negative - CXR shows Bilateral opacities, may be volume overloaded - CCM consulted, appreciate recommendations - Intubated on 11/06, ETT exchanged on 11/11 - 11/11 Bronchoscopy--Complicated by spontaneous pneumothorax - 11/11 S/p chest tube placement for right pneumothorax, removed by patient on 11/15 - 11/26 s/p Tracheostomy and PEGtube placement - 12/11 US thoracentesis due to moderate pleural effusion-1L removed - 12/29 US thoracentesis- 1.4L removed - This am Vent Setting:CPAP-30%,8 PS-20 - Continue Nebs treatment - Continue daily PST as tolerated - VAP bundle addressed - Aspiration precaution HOB above 30 - PRN ABG and CXR per CCM - Continue SPO2 monitoring for SPO2 goal above 92% - Daily assessment for gentle diurese #CHF- EF 30-35% with PPM #Hypotension-resolved #Septic Kristian-resolved - SR on the monitor, HR 70-90s - 11/04 Echo-EF 30-35% - 12/19 Repeat EF 35-40% - Continue beta-charleen - Not on aspirin due to allergy - Statins resumed - Continue blood pressure monitor per protocol - Maintain MAP above 65 - Cardiology signed off #Acute Microcytic Anemia #Acute Blood Loss-resolved #Acute GI Bleed-resolved - s/p a total of 7units of PRBCs since admit - 11/18 EGD- Large cratered ulcer in the posterior duodenal bulb about 2 cm in diameter. Visible vessel present. Mild active oozing from the ulcer bed. A total of 3 injections were performed around the ulcer for a total of 2.5 cc of dilute epinephrine and hemostasis was obtained.--> See full report - GI signed off - Stool occult still positive - H&H stable - Continue PPI and Carafate - Continue to trend CBC - Transfuse for H&H less than 7 - Hold AC for now #Hyponatremia #Hypokalemia - Gentle diurese - Strict intake and output - Continue to monitor and replace electrolytes as needed - Trend BMP,mag, & phosp #Urinary Retention-resolved - Sánchez reinserted on 11/19 for retention - Sánchez D/sara, patient is voiding - Bladder scan with no residual #Acute DVT in RLE - BLE doppler + Acute DVT in the right external iliac vein, common femoral vein, and superior aspect of femoral vein - Was on Therapeutic Lovenox- held to due GI Bleed - 11/17 s/p IVC filter placement by Vascular Surg #Agitation/Anxiety #Chronic Pain #Acute Encephalopathy-Resolved - Awake and following commands - Continue Buspar and seroquel - PRN Xanax for anxiety - CT head and EEG noted - Neurology consulted - PRN analgesia for pain management #Transaminitis/Shock Liver-resolved - Probably due to bacteria/spetic shock - Continue to Trend LFTs #Endo: h/o DM and hypothyroidism - Continue home Synthroid - Accu-Cheks every 6hrs - Avoid hypoglycemia The high probability of a clinically significant, sudden or life threatening deterioration of the [multi] system(s) required my full and direct attention, intervention and personal management. The aggregate critical care time was [35] minutes. This time is in addition to time spent performing reported procedures but includes the following: [x] Data Review and interpretation [x] Patient assessment and monitoring of vital signs [x] Documentation [x] Medication orders and management Disposition Plan: ICU Total Time Spent with Patient (Minutes): 35 History Interval history: Patient seen and examined at the bedside. Remains stable on the vent, AAO, following commands. Tolerating PST this am. Per RN abdominal distention and episode of emesis overnight, 600cc gastric residual. TF held. Hospitalist Physical - Constitutional Vitals: Temp Pulse Resp BP Pulse Ox 98.2 F 66 14 130/61 100 01/03/22 12:00 01/03/22 12:00 01/03/22 12:00 01/03/22 12:00 01/03/22 12:00 General appearance: Present: no acute distress, other (Trach and on the vent) - EENT Eyes: Present: PERRL ENT: hearing intact - Neck Neck: Present: normal ROM - Respiratory Respiratory effort: normal Respiratory: bilateral: rhonchi - Cardiovascular Rhythm: regular Heart Sounds: Present: S1 & S2 - Extremities Extremities: no ischemia, pulses intact, pulses symmetrical Extremity abnormal: edema - Peripheral Assessment Generalized Edema Type: Pitting Edema Degree: 3+ Capillary Refill: < 3 seconds Skin Temperature: Warm Peripheral Pulses: within normal limits - Abdominal General gastrointestinal: soft, non-distended, normal bowel sounds - Integumentary Integumentary: Present: warm, dry - Psychiatric Psychiatric: appropriate mood/affect, cooperative - Neurologic Neurologic: moves all extremities - Allied Health Allied health notes reviewed: nursing, case management HEART Score - HEART Score Troponin: Troponin T 0.045 ng/mL (0.00-0.029) H 11/29/21 20:15 Results - Labs CBC & Chem 7: 01/03/22 04:53 01/03/22 04:53 Labs: Laboratory Last Values WBC 10.6 K/mm3 (4.5-11.0) 01/03/22 04:53 RBC 2.82 M/mm3 (3.65-5.03) L 01/03/22 04:53 Hgb 7.7 gm/dl (10.1-14.3) L 01/03/22 04:53 Hct 23.4 % (30.3-42.9) L 01/03/22 04:53 MCV 83 fl (79-97) 01/03/22 04:53 MCH 27 pg (28-32) L 01/03/22 04:53 MCHC 33 % (30-34) 01/03/22 04:53 RDW 18.0 % (13.2-15.2) H 01/03/22 04:53 Plt Count 195 K/mm3 (140-440) 01/03/22 04:53 Add Manual Diff Complete 12/20/21 04:54 Total Counted 100 12/20/21 04:54 Seg Neutrophils % Chief Power Dispatcher 11/06/21 15:50 Seg Neuts % (Manual) 88.0 % (40.0-70.0) H 12/20/21 04:54 Band Neutrophils % 0 % 12/20/21 04:54 Lymphocytes % (Manual) 6.0 % (13.4-35.0) L 12/20/21 04:54 Reactive Lymphs % (Man) 0 % 12/20/21 04:54 Monocytes % (Manual) 5.0 % (0.0-7.3) 12/20/21 04:54 Eosinophils % (Manual) 1.0 % (0.0-4.3) 12/20/21 04:54 Basophils % (Manual) 0 % (0.0-1.8) 12/20/21 04:54 Metamyelocytes % 0 % 12/20/21 04:54 Myelocytes % 0 % 12/20/21 04:54 Promyelocytes % 0 % 12/20/21 04:54 Blast Cells % 0 % 12/20/21 04:54 Nucleated RBC % Not Reportable 12/20/21 04:54 Seg Neutrophils # Man 10.8 K/mm3 (1.8-7.7) H 12/20/21 04:54 Band Neutrophils # 0.0 K/mm3 12/20/21 04:54 Lymphocytes # (Manual) 0.7 K/mm3 (1.2-5.4) L 12/20/21 04:54 Abs React Lymphs (Man) 0.0 K/mm3 12/20/21 04:54 Monocytes # (Manual) 0.6 K/mm3 (0.0-0.8) 12/20/21 04:54 Eosinophils # (Manual) 0.1 K/mm3 (0.0-0.4) 12/20/21 04:54 Basophils # (Manual) 0.0 K/mm3 (0.0-0.1) 12/20/21 04:54 Metamyelocytes # 0.0 K/mm3 12/20/21 04:54 Myelocytes # 0.0 K/mm3 12/20/21 04:54 Promyelocytes # 0.0 K/mm3 12/20/21 04:54 Blast Cells # 0.0 K/mm3 12/20/21 04:54 WBC Morphology Not Reportable 12/20/21 04:54 Hypersegmented Neuts Not Reportable 12/20/21 04:54 Hyposegmented Neuts Not Reportable 12/20/21 04:54 Hypogranular Neuts Not Reportable 12/20/21 04:54 Smudge Cells Not Reportable 12/20/21 04:54 Toxic Granulation Not Reportable 12/20/21 04:54 Toxic Vacuolation Not Reportable 12/20/21 04:54 Dohle Bodies Not Reportable 12/20/21 04:54 Pelger-Huet Anomaly Not Reportable 12/20/21 04:54 Irina Rods Not Reportable 12/20/21 04:54 Platelet Estimate Consistent w auto 12/20/21 04:54 Clumped Platelets Not Reportable 12/20/21 04:54 Plt Clumps, EDTA Not Reportable 12/20/21 04:54 Large Platelets Not Reportable 12/20/21 04:54 Giant Platelets Not Reportable 12/20/21 04:54 Platelet Satelliting Not Reportable 12/20/21 04:54 Plt Morphology Comment Not Reportable 12/20/21 04:54 RBC Morphology Not Reportable 12/20/21 04:54 Dimorphic RBCs Not Reportable 12/20/21 04:54 Polychromasia Not Reportable 12/20/21 04:54 Hypochromasia Not Reportable 12/20/21 04:54 Poikilocytosis Not Reportable 12/20/21 04:54 Anisocytosis 1+ 12/20/21 04:54 Microcytosis Not Reportable 12/20/21 04:54 Macrocytosis Not Reportable 12/20/21 04:54 Spherocytes Not Reportable 12/20/21 04:54 Pappenheimer Bodies Not Reportable 12/20/21 04:54 Sickle Cells Not Reportable 12/20/21 04:54 Target Cells Not Reportable 12/20/21 04:54 Tear Drop Cells Not Reportable 12/20/21 04:54 Ovalocytes Not Reportable 12/20/21 04:54 Helmet Cells Not Reportable 12/20/21 04:54 Odonnell-[place] Bodies Not Reportable 12/20/21 04:54 [place] Rings Not Reportable 12/20/21 04:54 Malcom Cells Not Reportable 12/20/21 04:54 Bite Cells Not Reportable 12/20/21 04:54 Crenated Cell Not Reportable 12/20/21 04:54 Elliptocytes Not Reportable 12/20/21 04:54 Acanthocytes (Spur) Not Reportable 12/20/21 04:54 Rouleaux Not Reportable 12/20/21 04:54 Hemoglobin C Crystals Not Reportable 12/20/21 04:54 Schistocytes Not Reportable 12/20/21 04:54 Malaria parasites Not Reportable 12/20/21 04:54 Godfrey Bodies Not Reportable 12/20/21 04:54 Hem Pathologist Commnt No 12/20/21 04:54 PT 16.9 Sec. (12.2-14.9) H 11/26/21 05:00 INR 1.24 (0.87-1.13) H 11/26/21 05:00 APTT 29.2 Sec. (24.2-36.6) 11/26/21 05:00 D-Dimer 2655.00 ng/mlDDU (0-234) H 11/11/21 04:28 ABG pH 7.479 pH Units (7.350-7.450) H 12/16/21 20:52 ABG pCO2 37.5 mm Hg 12/16/21 20:52 ABG pO2 79.3 mm Hg (80.0-90.0) L 12/16/21 20:52 ABG HCO3 27.3 mmol/L (20.0-26.0) H 12/16/21 20:52 ABG O2 Saturation 97.0 % (95.0-99.0) 12/16/21 20:52 ABG O2 Content 12.3 (0.0-44) 12/16/21 20:52 ABG Base Excess 3.6 mmol/L (-2.0-3.0) H 12/16/21 20:52 ABG Hemoglobin 9.1 gm/dl (12.0-16.0) L 12/16/21 20:52 ABG Carboxyhemoglobin 1.6 % (0.0-5.0) 12/16/21 20:52 ABG Methemoglobin 0.5 % (0.0-1.5) 12/16/21 20:52 Oxyhemoglobin 94.9 % (95.0-99.0) L 12/16/21 20:52 FiO2 30 % 12/16/21 20:52 Sodium 133 mmol/L (137-145) L 01/03/22 04:53 Potassium 4.3 mmol/L (3.6-5.0) D 01/03/22 04:53 Chloride 96.2 mmol/L (98-107) L 01/03/22 04:53 Carbon Dioxide 26 mmol/L (22-30) 01/03/22 04:53 Anion Gap 15 mmol/L 01/03/22 04:53 BUN 30 mg/dL (7-17) H 01/03/22 04:53 Creatinine 0.7 mg/dL (0.6-1.2) 01/03/22 04:53 Estimated GFR > 60 ml/min 01/03/22 04:53 BUN/Creatinine Ratio 43 % 01/03/22 04:53 Glucose 107 mg/dL (65-100) H 01/03/22 04:53 POC Glucose 122 mg/dL (70-105) H 01/03/22 06:23 Lactic Acid 3.70 mmol/L (0.7-2.0) H* 11/03/21 22:32 Calcium 8.7 mg/dL (8.4-10.2) 01/03/22 04:53 Phosphorus 3.60 mg/dL (2.5-4.5) 01/03/22 04:53 Magnesium 1.70 mg/dL (1.7-2.3) 01/03/22 04:53 Ferritin 52.6 ng/mL (10.0-200.0) 11/05/21 06:11 Total Bilirubin 0.50 mg/dL (0.1-1.2) 11/17/21 05:56 Direct Bilirubin < 0.2 mg/dL (0-0.2) 11/11/21 04:28 Indirect Bilirubin 0.1 mg/dL 11/11/21 04:28 AST 36 units/L (5-40) 11/17/21 05:56 ALT 47 units/L (7-56) 11/17/21 05:56 Alkaline Phosphatase 107 units/L (35-129) 11/17/21 05:56 Ammonia 42.0 umol/L (25-60) 11/10/21 14:08 Lactate Dehydrogenase 187 units/L (91-180) H 11/05/21 06:11 Troponin T 0.045 ng/mL (0.00-0.029) H 11/29/21 20:15 C-Reactive Protein 22.20 mg/dL (0.00-1.30) H 11/05/21 06:11 NT-Pro-B Natriuret Pep 7895 pg/mL (0-900) H 11/03/21 22:32 Total Protein 5.1 g/dL (6.3-8.2) L 11/17/21 05:56 Albumin 2.2 g/dL (3.9-5) L 11/17/21 05:56 Albumin/Globulin Ratio 0.8 % 11/17/21 05:56 Triglycerides 59 mg/dL (2-149) 11/29/21 20:15 Cholesterol 74 mg/dL (50-199) 11/29/21 20:15 LDL Cholesterol Direct 25 mg/dL (50-130) L 11/29/21 20:15 HDL Cholesterol 41 mg/dL (40-59) 11/29/21 20:15 Cholesterol/HDL Ratio 1.80 % 11/29/21 20:15 Vitamin B12 1823 pg/mL (211-911) H 11/10/21 14:08 TSH 1.510 mlU/mL (0.270-4.200) 11/10/21 14:08 Urine Color Yellow (Yellow) 11/11/21 09:00 Urine Turbidity Slightly-cloudy (Clear) 11/11/21 09:00 Urine pH 5.0 (5.0-7.0) 11/11/21 09:00 Ur Specific [place] 1.009 (1.003-1.030) 11/11/21 09:00 Urine Protein <15 mg/dl mg/dL (Negative) 11/11/21 09:00 Urine Glucose (UA) Neg mg/dL (Negative) 11/11/21 09:00 Urine Ketones Neg mg/dL (Negative) 11/11/21 09:00 Urine Blood Mod (Negative) 11/11/21 09:00 Urine Nitrite Neg (Negative) 11/11/21 09:00 Urine Bilirubin Neg (Negative) 11/11/21 09:00 Urine Urobilinogen < 2.0 mg/dL (<2.0) 11/11/21 09:00 Ur Leukocyte Esterase Neg (Negative) 11/11/21 09:00 Urine WBC (Auto) < 1.0 /HPF (0.0-6.0) 11/11/21 09:00 Urine RBC (Auto) < 1.0 /HPF (0.0-6.0) 11/11/21 09:00 Vancomycin Trough 22.8 ug/mL (5.0-20.0) H 01/02/22 17:30 Coronavirus (PCR) Negative (Negative) 11/10/21 08:30 Blood Type O POSITIVE 12/14/21 10:30 Antibody Screen Negative 12/14/21 10:30 Crossmatch See Detail 12/14/21 10:30 Sánchez/IV: Voiding Method External Female Catheter Active Medications - Current Medications Current Medications: Generic Name Dose Route Start Last Admin Trade Name Freq PRN Reason Stop Dose Admin Acetaminophen 650 mg 12/14/21 04:12 01/01/22 11:45 Acetaminophen 325 Mg/10.15 Ml Oral Liqd Unit Dose FEEDTUBE 650 mg Q6H PRN Administration Non Cardiac Pain or Temp>100.5 Hydrocodone Bitart/Acetaminophen 1 each 11/21/21 10:00 01/03/22 13:36 Hydrocodone/Acetaminophen 10-325mg Tab FEEDTUBE 1 each TID YOSSI Administration Alprazolam 0.25 mg 12/30/21 09:00 12/31/21 20:53 Alprazolam 0.25 Mg Tab FEEDTUBE 0.25 mg Q8H PRN Administration Agitation Lipase/Protease/Amylase 1 each 11/08/21 11:09 Lipase 10,500/Protease 25,000/Amylase 43,750 (Units) Dr Lema FEEDTUBE PRN PRN For Clogged Feeding Tube Buspirone HCl 7.5 mg 12/30/21 10:00 01/03/22 09:37 Buspirone 5 Mg Tab FEEDTUBE 7.5 mg BID YOSSI Administration Dextrose 0 ml 11/10/21 10:52 12/30/21 00:48 Dextrose 10% *Hypoglycemia IV 50 ml PRN PRN Administration Hypoglycemia Docusate Sodium 100 mg 12/30/21 10:00 01/03/22 09:39 Docusate Sodium 100 Mg/10 Ml Oral Liqd FEEDTUBE Not Given BID YOSSI Gabapentin 100 mg 12/30/21 10:00 01/03/22 09:38 Gabapentin 100 Mg Cap FEEDTUBE 100 mg QDAY YOSSI Administration Hydromorphone HCl 0.5 mg 12/08/21 20:06 12/29/21 14:45 Hydromorphone 1 Mg/1 Ml Inj IV 0.5 mg Q3H PRN Administration Pain, Moderate (4-6) Hydrophilic Ointment 1 applic 11/06/21 04:02 Lip Therapy Vaseline TP Q2HR PRN Dry Lips Lansoprazole 30 mg 11/24/21 22:00 01/03/22 09:41 Lansoprazole 30 Mg Solutab FEEDTUBE 30 mg BID YOSSI Administration Levothyroxine Sodium 125 mcg 12/31/21 06:00 01/03/22 05:29 Levothyroxine 125 Mcg Tab FEEDTUBE 125 mcg DAILY@0600 YOSSI Administration Melatonin 5 mg 12/05/21 22:00 01/02/22 21:13 Melatonin 5 Mg Tab PO 5 mg QHS YOSSI Administration Metoclopramide HCl 5 mg 01/03/22 14:00 01/03/22 13:36 Metoclopramide 10 Mg/2 Ml Inj IV 01/05/22 13:59 5 mg Q8HR YOSSI Administration Metoprolol Tartrate 6.25 mg 12/30/21 10:00 01/03/22 09:37 Metoprolol Tartrate 25 Mg Tab FEEDTUBE 6.25 mg BID YOSSI Administration Midodrine 5 mg 12/30/21 09:00 01/03/22 12:09 Midodrine 5 Mg Tab FEEDTUBE 5 mg TID@0800,1200,1600 YOSSI Administration Multi-Ingred Cream/Lotion/Oil/Oint 1 applic 11/06/21 04:02 Mineral Oil/Petrolatum, White Ophth Oint 3.5 Gm OU Q4HR PRN Dry Eye(s) Ondansetron HCl 4 mg 12/05/21 10:00 01/03/22 05:28 Ondansetron 4 Mg/2 Ml Inj IV 4 mg Q8H PRN Administration Nausea And Vomiting Polyethylene Glycol 17 gm 12/30/21 10:00 01/03/22 09:40 Polyethylene Glycol 3350 17 Gm Powder FEEDTUBE Not Given QDAY YOSSI Pravastatin Sodium 20 mg 12/30/21 22:00 01/02/22 21:16 Pravastatin 20 Mg Tab FEEDTUBE 20 mg QHS YOSSI Administration Quetiapine Fumarate 25 mg 12/30/21 10:00 01/03/22 09:38 Quetiapine 25 Mg Tab FEEDTUBE 25 mg QAM YOSSI Administration Quetiapine Fumarate 50 mg 12/30/21 22:00 01/02/22 21:13 Quetiapine 25 Mg Tab FEEDTUBE 50 mg QHS YOSSI Administration Senna 17.6 mg 12/29/21 11:00 01/03/22 09:41 Sennosides Oral Liqd 8.8 Mg/5 Ml Oral Liqd FEEDTUBE Not Given Q12HR YOSSI Simple Syrup 15 ml 11/08/21 11:09 Simple Syrup 15 Ml FEEDTUBE PRN PRN Hypoglycemia Simple Syrup 30 ml 11/08/21 11:09 Simple Syrup 15 Ml FEEDTUBE PRN PRN Hypoglycemia Sodium Bicarbonate 325 mg 11/08/21 11:09 Sodium Bicarbonate 325 Mg Tab FEEDTUBE PRN PRN For Clogged Feeding Tube Sodium Chloride 10 ml 11/04/21 10:00 01/03/22 09:39 Sodium Chloride 0.9% 10 Ml Flush Syringe IV 10 ml BID YOSSI Administration Sodium Chloride 10 ml 11/04/21 02:03 Sodium Chloride 0.9% 10 Ml Flush Syringe IV PRN PRN LINE FLUSH Spironolactone 25 mg 12/30/21 10:00 01/03/22 09:37 Spironolactone 25 Mg Tab FEEDTUBE 25 mg QDAY YOSSI Administration Sucralfate 1 gm 12/30/21 12:00 01/03/22 12:09 Sucralfate 1 Gm/10 Ml Oral Liqd FEEDTUBE 1 gm Q6HR YOSSI Administration Trazodone HCl 50 mg 12/04/21 22:00 01/02/22 21:15 Trazodone 50 Mg Tab PO 50 mg QHS YOSSI Administration Nutrition/Malnutrition Assess - Dietary Evaluation Nutrition/Malnutrition Findings: Nutrition Notes Start: 11/04/21 17:16 Freq: Status: Active Protocol: Document 01/02/22 12:11 [facility] (Rec: 01/02/22 12:17 [facility] [id number]) Nutrition Notes Initial or Follow up Reassessment Current Diagnosis Diabetes,Heart Failure, Respiratory Failure Other Pertinent Diagnosis Bacteremia, pneu, Bilat pleural effusion, Agitation/ anxiety Current Diet TF - Vital AF 1.2 at 45ml/hr Labs/Tests Na 131 K 3.5 BUN 27 Pertinent Medications 25% Human Albumin, Colace, Lasix, Reglan, Miralax, 40mEq KCl, Senokot, Sucralfate Height 5 ft Weight 73.3 kg Lyman Body Weight (kg) 45.45 BMI 31.5 Weight change and time frame Current wt obtained from bed scale Weight Status Obese Subjective/Other Information Observed TF infusing at goal rate. Pt remains on vent support. Percent of energy/protein needs met: 100% energy 89% pro Burn Absent Trauma Absent #1 Nutrition Diagnosis Inadequate oral intake Diagnosis Progress(for reassessment Continues documentation) Is patient on ventilator? Yes Is Patient Ambulatory and/or Out of Bed No REE-([facility]-confined to bed) 1338.492 Kcal/Kg value to use for calculation 17 Approximate Energy Requirements Using 1246 kcal/Kg Calculation Used for Recommendations Kcal/kg Additional Notes Pro needs 2g/kg IBW: 91g/day Fluid needs per MD. Nutrition Intervention Nutrition Support: Continue Vital AF 1.2 at 45ml/ hr with 70ml water flush q4h. Kcal 1,296 Protein (gm) 81 Carbohydrates (gm) 119 Fat (gm) 58 Fluid (mL) 876 Fiber (gm) 6 Goal #1 TF tolerance Goal #2 TF to meet at least 75% energy and pro needs Follow-Up By: 01/09/22 Additional Comments F/U: stable TF, vent status, wt <LEAH ALFONSO - Last Filed: 01/04/22 07:08> Assessment and Plan Assessment and plan: I saw and evaluated the patient. I agree with the findings and the plan of care as documented in the Nurse Practitioner's~note, with the following corrections and additions. Hospitalist Physical - Constitutional Vitals: Temp Pulse Resp BP Pulse Ox 97.5 F L 67 16 122/60 100 01/04/22 04:00 01/04/22 06:00 01/04/22 06:00 01/04/22 06:00 01/04/22 06:00 HEART Score - HEART Score Troponin: Troponin T 0.045 ng/mL (0.00-0.029) H 11/29/21 20:15 Results - Labs CBC & Chem 7: 01/03/22 04:53 01/04/22 04:00 Labs: Laboratory Last Values WBC 10.6 K/mm3 (4.5-11.0) 01/03/22 04:53 RBC 2.82 M/mm3 (3.65-5.03) L 01/03/22 04:53 Hgb 7.7 gm/dl (10.1-14.3) L 01/03/22 04:53 Hct 23.4 % (30.3-42.9) L 01/03/22 04:53 MCV 83 fl (79-97) 01/03/22 04:53 MCH 27 pg (28-32) L 01/03/22 04:53 MCHC 33 % (30-34) 01/03/22 04:53 RDW 18.0 % (13.2-15.2) H 01/03/22 04:53 Plt Count 195 K/mm3 (140-440) 01/03/22 04:53 Add Manual Diff Complete 12/20/21 04:54 Total Counted 100 12/20/21 04:54 Seg Neutrophils % Chief Power Dispatcher 11/06/21 15:50 Seg Neuts % (Manual) 88.0 % (40.0-70.0) H 12/20/21 04:54 Band Neutrophils % 0 % 12/20/21 04:54 Lymphocytes % (Manual) 6.0 % (13.4-35.0) L 12/20/21 04:54 Reactive Lymphs % (Man) 0 % 12/20/21 04:54 Monocytes % (Manual) 5.0 % (0.0-7.3) 12/20/21 04:54 Eosinophils % (Manual) 1.0 % (0.0-4.3) 12/20/21 04:54 Basophils % (Manual) 0 % (0.0-1.8) 12/20/21 04:54 Metamyelocytes % 0 % 12/20/21 04:54 Myelocytes % 0 % 12/20/21 04:54 Promyelocytes % 0 % 12/20/21 04:54 Blast Cells % 0 % 12/20/21 04:54 Nucleated RBC % Not Reportable 12/20/21 04:54 Seg Neutrophils # Man 10.8 K/mm3 (1.8-7.7) H 12/20/21 04:54 Band Neutrophils # 0.0 K/mm3 12/20/21 04:54 Lymphocytes # (Manual) 0.7 K/mm3 (1.2-5.4) L 12/20/21 04:54 Abs React Lymphs (Man) 0.0 K/mm3 12/20/21 04:54 Monocytes # (Manual) 0.6 K/mm3 (0.0-0.8) 12/20/21 04:54 Eosinophils # (Manual) 0.1 K/mm3 (0.0-0.4) 12/20/21 04:54 Basophils # (Manual) 0.0 K/mm3 (0.0-0.1) 12/20/21 04:54 Metamyelocytes # 0.0 K/mm3 12/20/21 04:54 Myelocytes # 0.0 K/mm3 12/20/21 04:54 Promyelocytes # 0.0 K/mm3 12/20/21 04:54 Blast Cells # 0.0 K/mm3 12/20/21 04:54 WBC Morphology Not Reportable 12/20/21 04:54 Hypersegmented Neuts Not Reportable 12/20/21 04:54 Hyposegmented Neuts Not Reportable 12/20/21 04:54 Hypogranular Neuts Not Reportable 12/20/21 04:54 Smudge Cells Not Reportable 12/20/21 04:54 Toxic Granulation Not Reportable 12/20/21 04:54 Toxic Vacuolation Not Reportable 12/20/21 04:54 Dohle Bodies Not Reportable 12/20/21 04:54 Pelger-Huet Anomaly Not Reportable 12/20/21 04:54 Irina Rods Not Reportable 12/20/21 04:54 Platelet Estimate Consistent w auto 12/20/21 04:54 Clumped Platelets Not Reportable 12/20/21 04:54 Plt Clumps, EDTA Not Reportable 12/20/21 04:54 Large Platelets Not Reportable 12/20/21 04:54 Giant Platelets Not Reportable 12/20/21 04:54 Platelet Satelliting Not Reportable 12/20/21 04:54 Plt Morphology Comment Not Reportable 12/20/21 04:54 RBC Morphology Not Reportable 12/20/21 04:54 Dimorphic RBCs Not Reportable 12/20/21 04:54 Polychromasia Not Reportable 12/20/21 04:54 Hypochromasia Not Reportable 12/20/21 04:54 Poikilocytosis Not Reportable 12/20/21 04:54 Anisocytosis 1+ 12/20/21 04:54 Microcytosis Not Reportable 12/20/21 04:54 Macrocytosis Not Reportable 12/20/21 04:54 Spherocytes Not Reportable 12/20/21 04:54 Pappenheimer Bodies Not Reportable 12/20/21 04:54 Sickle Cells Not Reportable 12/20/21 04:54 Target Cells Not Reportable 12/20/21 04:54 Tear Drop Cells Not Reportable 12/20/21 04:54 Ovalocytes Not Reportable 12/20/21 04:54 Helmet Cells Not Reportable 12/20/21 04:54 Odonnell-[place]al[place] Bodies Not Reportable 12/20/21 04:54 [place] Rings Not Reportable 12/20/21 04:54 Malcom Cells Not Reportable 12/20/21 04:54 Bite Cells Not Reportable 12/20/21 04:54 Crenated Cell Not Reportable 12/20/21 04:54 Elliptocytes Not Reportable 12/20/21 04:54 Acanthocytes (Spur) Not Reportable 12/20/21 04:54 Rouleaux Not Reportable 12/20/21 04:54 Hemoglobin C Crystals Not Reportable 12/20/21 04:54 Schistocytes Not Reportable 12/20/21 04:54 Malaria parasites Not Reportable 12/20/21 04:54 Godfrey Bodies Not Reportable 12/20/21 04:54 Hem Pathologist Commnt No 12/20/21 04:54 PT 16.9 Sec. (12.2-14.9) H 11/26/21 05:00 INR 1.24 (0.87-1.13) H 11/26/21 05:00 APTT 29.2 Sec. (24.2-36.6) 11/26/21 05:00 D-Dimer 2655.00 ng/mlDDU (0-234) H 11/11/21 04:28 ABG pH 7.479 pH Units (7.350-7.450) H 12/16/21 20:52 ABG pCO2 37.5 mm Hg 12/16/21 20:52 ABG pO2 79.3 mm Hg (80.0-90.0) L 12/16/21 20:52 ABG HCO3 27.3 mmol/L (20.0-26.0) H 12/16/21 20:52 ABG O2 Saturation 97.0 % (95.0-99.0) 12/16/21 20:52 ABG O2 Content 12.3 (0.0-44) 12/16/21 20:52 ABG Base Excess 3.6 mmol/L (-2.0-3.0) H 12/16/21 20:52 ABG Hemoglobin 9.1 gm/dl (12.0-16.0) L 12/16/21 20:52 ABG Carboxyhemoglobin 1.6 % (0.0-5.0) 12/16/21 20:52 ABG Methemoglobin 0.5 % (0.0-1.5) 12/16/21 20:52 Oxyhemoglobin 94.9 % (95.0-99.0) L 12/16/21 20:52 FiO2 30 % 12/16/21 20:52 Sodium 132 mmol/L (137-145) L 01/04/22 04:00 Potassium 4.0 mmol/L (3.6-5.0) 01/04/22 04:00 Chloride 92.8 mmol/L (98-107) L 01/04/22 04:00 Carbon Dioxide 29 mmol/L (22-30) 01/04/22 04:00 Anion Gap 14 mmol/L 01/04/22 04:00 BUN 30 mg/dL (7-17) H 01/04/22 04:00 Creatinine 0.6 mg/dL (0.6-1.2) 01/04/22 04:00 Estimated GFR > 60 ml/min 01/04/22 04:00 BUN/Creatinine Ratio 50 % 01/04/22 04:00 Glucose 115 mg/dL (65-100) H 01/04/22 04:00 POC Glucose 100 mg/dL (70-105) 01/04/22 05:25 Lactic Acid 3.70 mmol/L (0.7-2.0) H* 11/03/21 22:32 Calcium 9.0 mg/dL (8.4-10.2) 01/04/22 04:00 Phosphorus 3.60 mg/dL (2.5-4.5) 01/04/22 04:00 Magnesium 1.60 mg/dL (1.7-2.3) L 01/04/22 04:00 Ferritin 52.6 ng/mL (10.0-200.0) 11/05/21 06:11 Total Bilirubin 0.50 mg/dL (0.1-1.2) 11/17/21 05:56 Direct Bilirubin < 0.2 mg/dL (0-0.2) 11/11/21 04:28 Indirect Bilirubin 0.1 mg/dL 11/11/21 04:28 AST 36 units/L (5-40) 11/17/21 05:56 ALT 47 units/L (7-56) 11/17/21 05:56 Alkaline Phosphatase 107 units/L (35-129) 11/17/21 05:56 Ammonia 42.0 umol/L (25-60) 11/10/21 14:08 Lactate Dehydrogenase 187 units/L (91-180) H 11/05/21 06:11 Troponin T 0.045 ng/mL (0.00-0.029) H 11/29/21 20:15 C-Reactive Protein 22.20 mg/dL (0.00-1.30) H 11/05/21 06:11 NT-Pro-B Natriuret Pep 7895 pg/mL (0-900) H 11/03/21 22:32 Total Protein 5.1 g/dL (6.3-8.2) L 11/17/21 05:56 Albumin 2.2 g/dL (3.9-5) L 11/17/21 05:56 Albumin/Globulin Ratio 0.8 % 11/17/21 05:56 Triglycerides 59 mg/dL (2-149) 11/29/21 20:15 Cholesterol 74 mg/dL (50-199) 11/29/21 20:15 LDL Cholesterol Direct 25 mg/dL (50-130) L 11/29/21 20:15 HDL Cholesterol 41 mg/dL (40-59) 11/29/21 20:15 Cholesterol/HDL Ratio 1.80 % 11/29/21 20:15 Vitamin B12 1823 pg/mL (211-911) H 11/10/21 14:08 TSH 1.510 mlU/mL (0.270-4.200) 11/10/21 14:08 Urine Color Yellow (Yellow) 11/11/21 09:00 Urine Turbidity Slightly-cloudy (Clear) 11/11/21 09:00 Urine pH 5.0 (5.0-7.0) 11/11/21 09:00 Ur Specific [place] 1.009 (1.003-1.030) 11/11/21 09:00 Urine Protein <15 mg/dl mg/dL (Negative) 11/11/21 09:00 Urine Glucose (UA) Neg mg/dL (Negative) 11/11/21 09:00 Urine Ketones Neg mg/dL (Negative) 11/11/21 09:00 Urine Blood Mod (Negative) 11/11/21 09:00 Urine Nitrite Neg (Negative) 11/11/21 09:00 Urine Bilirubin Neg (Negative) 11/11/21 09:00 Urine Urobilinogen < 2.0 mg/dL (<2.0) 11/11/21 09:00 Ur Leukocyte Esterase Neg (Negative) 11/11/21 09:00 Urine WBC (Auto) < 1.0 /HPF (0.0-6.0) 11/11/21 09:00 Urine RBC (Auto) < 1.0 /HPF (0.0-6.0) 11/11/21 09:00 Vancomycin Trough 22.8 ug/mL (5.0-20.0) H 01/02/22 17:30 Random Vancomycin 10.5 ug/mL (0-40.0) 01/04/22 05:00 Coronavirus (PCR) Negative (Negative) 11/10/21 08:30 Blood Type O POSITIVE 12/14/21 10:30 Antibody Screen Negative 12/14/21 10:30 Crossmatch See Detail 12/14/21 10:30 Sánchez/IV: Voiding Method External Female Catheter Active Medications - Current Medications Current Medications: Generic Name Dose Route Start Last Admin Trade Name Freq PRN Reason Stop Dose Admin Acetaminophen 650 mg 12/14/21 04:12 01/01/22 11:45 Acetaminophen 325 Mg/10.15 Ml Oral Liqd Unit Dose FEEDTUBE 650 mg Q6H PRN Administration Non Cardiac Pain or Temp>100.5 Hydrocodone Bitart/Acetaminophen 1 each 11/21/21 10:00 01/03/22 19:49 Hydrocodone/Acetaminophen 10-325mg Tab FEEDTUBE 1 each TID YOSSI Administration Alprazolam 0.25 mg 12/30/21 09:00 01/03/22 19:51 Alprazolam 0.25 Mg Tab FEEDTUBE 0.25 mg Q8H PRN Administration Agitation Lipase/Protease/Amylase 1 each 11/08/21 11:09 Lipase 10,500/Protease 25,000/Amylase 43,750 (Units) Cap FEEDTUBE PRN PRN For Clogged Feeding Tube Buspirone HCl 7.5 mg 12/30/21 10:00 01/03/22 22:20 Buspirone 5 Mg Tab FEEDTUBE 7.5 mg BID YOSSI Administration Dextrose 0 ml 11/10/21 10:52 12/30/21 00:48 Dextrose 10% *Hypoglycemia IV 50 ml PRN PRN Administration Hypoglycemia Docusate Sodium 100 mg 12/30/21 10:00 01/03/22 22:47 Docusate Sodium 100 Mg/10 Ml Oral Liqd FEEDTUBE Not Given BID YOSSI Gabapentin 100 mg 12/30/21 10:00 01/03/22 09:38 Gabapentin 100 Mg Cap FEEDTUBE 100 mg QDAY YOSSI Administration Hydromorphone HCl 0.5 mg 12/08/21 20:06 12/29/21 14:45 Hydromorphone 1 Mg/1 Ml Inj IV 0.5 mg Q3H PRN Administration Pain, Moderate (4-6) Hydrophilic Ointment 1 applic 11/06/21 04:02 Lip Therapy Vaseline TP Q2HR PRN Dry Lips Vancomycin HCl 1 gm in 250 mls @ 166.667 mls/hr 01/04/22 10:00 Vancomycin/Ns 1 Gm/250 Ml IV 01/26/22 11:29 Q48H YOSSI Lansoprazole 30 mg 11/24/21 22:00 01/03/22 22:23 Lansoprazole 30 Mg Solutab FEEDTUBE 30 mg BID YOSSI Administration Levothyroxine Sodium 125 mcg 12/31/21 06:00 01/04/22 05:21 Levothyroxine 125 Mcg Tab FEEDTUBE 125 mcg DAILY@0600 YOSSI Administration Melatonin 5 mg 12/05/21 22:00 01/03/22 22:23 Melatonin 5 Mg Tab PO 5 mg QHS YOSSI Administration Metoclopramide HCl 5 mg 01/03/22 14:00 01/04/22 05:21 Metoclopramide 10 Mg/2 Ml Inj IV 01/05/22 13:59 5 mg Q8HR YOSSI Administration Metoprolol Tartrate 6.25 mg 12/30/21 10:00 01/03/22 22:20 Metoprolol Tartrate 25 Mg Tab FEEDTUBE 6.25 mg BID YOSSI Administration Midodrine 5 mg 12/30/21 09:00 01/03/22 16:31 Midodrine 5 Mg Tab FEEDTUBE 5 mg TID@0800,1200,1600 YOSSI Administration Multi-Ingred Cream/Lotion/Oil/Oint 1 applic 11/06/21 04:02 Mineral Oil/Petrolatum, White Ophth Oint 3.5 Gm OU Q4HR PRN Dry Eye(s) Ondansetron HCl 4 mg 12/05/21 10:00 01/03/22 19:49 Ondansetron 4 Mg/2 Ml Inj IV 4 mg Q8H PRN Administration Nausea And Vomiting Polyethylene Glycol 17 gm 12/30/21 10:00 01/03/22 09:40 Polyethylene Glycol 3350 17 Gm Powder FEEDTUBE Not Given QDAY [facility] Pravastatin Sodium 20 mg 12/30/21 22:00 01/03/22 22:30 Pravastatin 20 Mg Tab FEEDTUBE 20 mg QHS YOSSI Administration Quetiapine Fumarate 25 mg 12/30/21 10:00 01/03/22 09:38 Quetiapine 25 Mg Tab FEEDTUBE 25 mg QAM YOSSI Administration Quetiapine Fumarate 50 mg 12/30/21 22:00 01/03/22 22:23 Quetiapine 25 Mg Tab FEEDTUBE 50 mg QHS YOSSI Administration Senna 17.6 mg 12/29/21 11:00 01/03/22 22:48 Sennosides Oral Liqd 8.8 Mg/5 Ml Oral Liqd FEEDTUBE Not Given Q12HR YOSSI Simple Syrup 15 ml 11/08/21 11:09 Simple Syrup 15 Ml FEEDTUBE PRN PRN Hypoglycemia Simple Syrup 30 ml 11/08/21 11:09 Simple Syrup 15 Ml FEEDTUBE PRN PRN Hypoglycemia Sodium Bicarbonate 325 mg 11/08/21 11:09 Sodium Bicarbonate 325 Mg Tab FEEDTUBE PRN PRN For Clogged Feeding Tube Sodium Chloride 10 ml 11/04/21 10:00 01/03/22 22:25 Sodium Chloride 0.9% 10 Ml Flush Syringe IV Not Given BID YOSSI Sodium Chloride 10 ml 11/04/21 02:03 Sodium Chloride 0.9% 10 Ml Flush Syringe IV PRN PRN LINE FLUSH Spironolactone 25 mg 12/30/21 10:00 01/03/22 09:37 Spironolactone 25 Mg Tab FEEDTUBE 25 mg QDAY YOSSI Administration Sucralfate 1 gm 12/30/21 12:00 01/04/22 05:20 Sucralfate 1 Gm/10 Ml Oral Liqd FEEDTUBE 1 gm Q6HR YOSSI Administration Trazodone HCl 50 mg 12/04/21 22:00 01/03/22 22:20 Trazodone 50 Mg Tab PO 50 mg QHS YOSSI Administration Nutrition/Malnutrition Assess - Dietary Evaluation Nutrition/Malnutrition Findings: Nutrition Notes Start: 11/04/21 17:16 Freq: Status: Active Protocol: Document 01/02/22 12:11 YOVANI (Rec: 01/02/22 12:17 [id number] Nutrition Notes Initial or Follow up Reassessment Current Diagnosis Diabetes,Heart Failure, Respiratory Failure Other Pertinent Diagnosis Bacteremia, pneu, Bilat pleural effusion, Agitation/ anxiety Current Diet TF - Vital AF 1.2 at 45ml/hr Labs/Tests Na 131 K 3.5 BUN 27 Pertinent Medications 25% Human Albumin, Colace, Lasix, Reglan, Miralax, 40mEq KCl, Senokot, Sucralfate Height 5 ft Weight 73.3 kg Lyman Body Weight (kg) 45.45 BMI 31.5 Weight change and time frame Current wt obtained from bed scale Weight Status Obese Subjective/Other Information Observed TF infusing at goal rate. Pt remains on vent support. Percent of energy/protein needs met: 100% energy 89% pro Burn Absent Trauma Absent #1 Nutrition Diagnosis Inadequate oral intake Diagnosis Progress(for reassessment Continues documentation) Is patient on ventilator? Yes Is Patient Ambulatory and/or Out of Bed No REE-([facility]-confined to bed) 1338.492 Kcal/Kg value to use for calculation 17 Approximate Energy Requirements Using 1246 kcal/Kg Calculation Used for Recommendations Kcal/kg Additional Notes Pro needs 2g/kg IBW: 91g/day Fluid needs per MD. Nutrition Intervention Nutrition Support: Continue Vital AF 1.2 at 45ml/ hr with 70ml water flush q4h. Kcal 1,296 Protein (gm) 81 Carbohydrates (gm) 119 Fat (gm) 58 Fluid (mL) 876 Fiber (gm) 6 Goal #1 TF tolerance Goal #2 TF to meet at least 75% energy and pro needs Follow-Up By: 01/09/22 Additional Comments F/U: stable TF, vent status, wt
--- NOTE | 2022-01-03 16:07 | Progress Note ---
Assessment and Plan 81-year-old female with known history of diabetes mellitus, hypertension and arthritis brought to the emergency room via EMS for shortness of breath which has been ongoing for the past 3 days prior to come to the emergency room. Patient has been having some cough and shortness of breath. According to patient's , patient has also been having a fever of about 102.2 F. Upon arrival of EMS patient was found to be tachypneic with O2 saturation of 76% on room air which later improved to 88% on nonrebreather. Work-up in the emergency room , chest x-ray shows bilateral interstitial pulmonary edema with bilateral pleural effusions.. Bibasilar opacities which favors atelectasis. Lab reveals leukocytosis of 29. Hemoglobin of 6.1. Patient received blood transfusion and also checked for COVID-19. Patient Ivy virus test reported negative. Patient intubated and placed on mechanical ventilation. Patient transfered to ICU. Patient undergone thoracentesis and chest tube placement. Patient still on mechanical ventilation. Patient transfered to IMCU. Patient sleeping. Not responding to verbal stimuli. . Patient is still on assist control mechanical ventilation, rate 14, Tidal volume 400, FIO2 30%, PEEP 8 and O2 saturation running 100%. Patient afebrile. No leukocytosis.Blood pressure 140/50, Pulse 60 , respirations 14 Patients to days HGB 7.7 01/03/22 Chest xray 12/11/21 reported Diffuse bilateral pulmonary opacities most significant in the left lung and right upper lung .No pneumothorax. Chest xray done 01/01/22 reported Worsening bilateral pulmonary opacities and effusions Patient is on Vancomycin, Prevacid and Sucralfate. Recommend SCDs. Patient is on tube feeding. I spent critical care time of 35 minutes, reviewing the chart, examine the patient, review lab results, chest xray and talk to respiratory therapy and nursing staff and work out plan of treatment in this critically ill patient. - Patient Problems (1) Acute respiratory failure with hypoxia Current Visit: Yes Status: Acute Plan to address problem: Mechanical ventilation, assist control, rate 14, Tidal volue 400, FIO2 30%, PEEP 8 S/P tracheostomy. (2) Bilateral pneumonia Current Visit: Yes Status: Acute Plan to address problem: Patient is on vancomycin. (3) Occult blood positive stool Current Visit: Yes Status: Acute Plan to address problem: Management as per gastroenterology. (4) Acute anemia Current Visit: Yes Status: Acute Plan to address problem: Patient received blood transfusion. (5) Suspected COVID-19 virus infection Current Visit: Yes Status: Acute Plan to address problem: Ivy virus PCR negative. Subjective Date of service: 01/03/22 Principal diagnosis: Septic shock; AHRF; Anemia; Pneumonia; pleural effusion; HFrEF; Pulm HTN Interval history: 81-year-old female with known history of diabetes mellitus, hypertension and arthritis brought to the emergency room via EMS for shortness of breath which has been ongoing for the past 3 days prior to come to the emergency room. Patient has been having some cough and shortness of breath. According to patient's , patient has also been having a fever of about 102.2 F. Upon arrival of EMS patient was found to be tachypneic with O2 saturation of 76% on room air which later improved to 88% on nonrebreather. Work-up in the emergency room , chest x-ray shows bilateral interstitial pulmonary edema with bilateral pleural effusions.. Bibasilar opacities which favors atelectasis. Lab reveals leukocytosis of 29. Hemoglobin of 6.1. Patient received blood transfusion and also checked for COVID-19. Patient Ivy virus test reported negative. Patient intubated and placed on mechanical ventilation. Patient transfered to ICU. Patient undergone thoracentesis and chest tube placement. Patient still on mechanical ventilation. Patient transfered to IMCU. Patient sleeping. Not responding to verbal stimuli. . Patient is still on assist control mechanical ventilation, rate 14, Tidal volume 400, FIO2 30%, PEEP 8 and O2 saturation running 100%. Patient afebrile. No leukocytosis.Blood pressure 140/50, Pulse 60 , respirations 14 Patients to days HGB 7.7 01/03/22 Chest xray 12/11/21 reported Diffuse bilateral pulmonary opacities most significant in the left lung and right upper lung .No pneumothorax. Chest xray done 01/01/22 reported Worsening bilateral pulmonary opacities and effusions Patient is on Vancomycin, Prevacid and Sucralfate. Recommend SCDs. Patient is on tube feeding. Objective Vital Signs - 12hr 01/03/22 01/03/22 01/03/22 04:45 05:00 06:00 Temperature Pulse Rate 72 91 H 92 H Pulse Rate [ From Monitor] Respiratory 20 29 H Rate Blood Pressure 123/52 123/52 149/64 O2 Sat by Pulse 100 99 97 Oximetry O2 Sat by Pulse Oximetry [ Assessment] 01/03/22 01/03/22 01/03/22 07:00 08:00 08:50 Temperature 99.6 F Pulse Rate 74 77 72 Pulse Rate [ 74 From Monitor] Respiratory 14 14 Rate Blood Pressure 129/63 129/63 137/63 O2 Sat by Pulse 100 100 100 Oximetry O2 Sat by Pulse 100 Oximetry [ Assessment] 01/03/22 01/03/22 01/03/22 09:00 09:37 10:00 Temperature Pulse Rate 72 72 71 Pulse Rate [ From Monitor] Respiratory 12 14 Rate Blood Pressure 137/63 137/63 146/56 O2 Sat by Pulse 100 100 Oximetry O2 Sat by Pulse Oximetry [ Assessment] 01/03/22 01/03/22 11:00 12:00 Temperature 98.2 F Pulse Rate 67 66 Pulse Rate [ From Monitor] Respiratory 14 22 Rate Blood Pressure 137/53 144/57 O2 Sat by Pulse 99 100 Oximetry O2 Sat by Pulse Oximetry [ Assessment] Constitutional: no acute distress, asleep, other (trach to MVS, frail elderly woman with mildly increased respiratory effort at rest) Eyes: non-icteric ENT: oropharynx moist, other (+ Midline tracheostomy with minimal secretions) Neck: supple, no lymphadenopathy, no JVD Effort: mildly labored Ascultation: Bilateral: diminished breath sounds, rhonchi, other (Right chest tube) Percussion: Bilateral: not dull Cardiovascular: regular rate and rhythm, other (S1,S2) Gastrointestinal: normoactive bowel sounds, soft, non-tender, non-distended (protuberant) Integumentary: normal Extremities: no cyanosis, pink and warm, pulses normal, edema (upper etremities), anasarca Neurologic: non-focal exam (grossly), pupils equal and round Psychiatric: other (Sedated. Not responding to verbal stimuli.) CBC and BMP: 01/03/22 04:53 01/04/22 04:00 ABG, PT/INR, D-dimer: ABG ABG pH 7.479 pH Units (7.350-7.450) H 12/16/21 20:52 ABG pCO2 37.5 mm Hg 12/16/21 20:52 ABG pO2 79.3 mm Hg (80.0-90.0) L 12/16/21 20:52 ABG O2 Saturation 97.0 % (95.0-99.0) 12/16/21 20:52 PT/INR, D-dimer PT 16.9 Sec. (12.2-14.9) H 11/26/21 05:00 INR 1.24 (0.87-1.13) H 11/26/21 05:00 D-Dimer 2655.00 ng/mlDDU (0-234) H 11/11/21 04:28 Abnormal lab findings: Abnormal Labs 11/03/21 11/03/21 11/03/21 22:32 22:32 22:32 WBC 29.3 H RBC 2.93 L Hgb 6.1 L Hct 21.9 L MCV 75 L MCH 21 L MCHC 28 L RDW 19.7 H Plt Count Seg Neuts % (Manual) 97.0 H Lymphocytes % (Manual) 3.0 L Seg Neutrophils # Man 28.4 H Lymphocytes # (Manual) 0.9 L Monocytes # (Manual) PT 18.6 H INR 1.40 H D-Dimer ABG pH ABG pO2 ABG HCO3 ABG O2 Saturation ABG Base Excess ABG Hemoglobin Oxyhemoglobin Sodium Potassium Chloride Carbon Dioxide 20 L BUN 33 H Creatinine Glucose 119 H POC Glucose Lactic Acid Calcium 8.3 L Phosphorus Magnesium AST ALT Alkaline Phosphatase Lactate Dehydrogenase Troponin T 0.035 H C-Reactive Protein NT-Pro-B Natriuret Pep Total Protein Albumin LDL Cholesterol Direct 34 L Vitamin B12 Vancomycin Trough Crossmatch 11/03/21 11/03/21 11/03/21 22:32 22:32 23:57 WBC RBC Hgb Hct MCV MCH MCHC RDW Plt Count Seg Neuts % (Manual) Lymphocytes % (Manual) Seg Neutrophils # Man Lymphocytes # (Manual) Monocytes # (Manual) PT INR D-Dimer ABG pH ABG pO2 ABG HCO3 ABG O2 Saturation ABG Base Excess ABG Hemoglobin Oxyhemoglobin Sodium Potassium Chloride Carbon Dioxide BUN Creatinine Glucose POC Glucose Lactic Acid 3.70 H* Calcium Phosphorus Magnesium AST ALT Alkaline Phosphatase 139 H Lactate Dehydrogenase Troponin T C-Reactive Protein NT-Pro-B Natriuret Pep 7895 H Total Protein Albumin 3.5 L LDL Cholesterol Direct Vitamin B12 Vancomycin Trough Crossmatch See Detail 11/04/21 11/04/21 11/05/21 00:59 13:58 00:51 WBC 27.9 H RBC 3.28 L Hgb 7.3 L Hct 25.5 L MCV 78 L MCH 22 L MCHC 29 L RDW 19.1 H Plt Count Seg Neuts % (Manual) 96.0 H Lymphocytes % (Manual) 2.0 L Seg Neutrophils # Man 26.8 H Lymphocytes # (Manual) 0.6 L Monocytes # (Manual) PT INR D-Dimer ABG pH ABG pO2 ABG HCO3 ABG O2 Saturation ABG Base Excess ABG Hemoglobin Oxyhemoglobin Sodium Potassium Chloride Carbon Dioxide BUN Creatinine Glucose POC Glucose Lactic Acid Calcium Phosphorus Magnesium AST ALT Alkaline Phosphatase Lactate Dehydrogenase Troponin T 0.051 H D 0.032 H D C-Reactive Protein NT-Pro-B Natriuret Pep Total Protein Albumin LDL Cholesterol Direct Vitamin B12 Vancomycin Trough Crossmatch 11/05/21 11/05/21 11/05/21 06:11 06:11 06:11 WBC 31.8 H RBC 3.57 L Hgb 8.0 L Hct 27.7 L MCV 78 L MCH 22 L MCHC 29 L RDW 19.2 H Plt Count Seg Neuts % (Manual) 91.0 H Lymphocytes % (Manual) 4.5 L Seg Neutrophils # Man 28.9 H Lymphocytes # (Manual) Monocytes # (Manual) 1.1 H PT INR D-Dimer 1494.53 H ABG pH ABG pO2 ABG HCO3 ABG O2 Saturation ABG Base Excess ABG Hemoglobin Oxyhemoglobin Sodium Potassium Chloride Carbon Dioxide 19 L BUN 42 H Creatinine Glucose 115 H POC Glucose Lactic Acid Calcium Phosphorus Magnesium AST 43 H ALT Alkaline Phosphatase Lactate Dehydrogenase 187 H Troponin T C-Reactive Protein 22.20 H NT-Pro-B Natriuret Pep Total Protein 6.0 L Albumin 3.2 L LDL Cholesterol Direct Vitamin B12 Vancomycin Trough Crossmatch 11/05/21 11/05/21 11/06/21 06:11 12:15 00:30 WBC RBC Hgb Hct MCV MCH MCHC RDW Plt Count Seg Neuts % (Manual) Lymphocytes % (Manual) Seg Neutrophils # Man Lymphocytes # (Manual) Monocytes # (Manual) PT INR D-Dimer ABG pH ABG pO2 ABG HCO3 ABG O2 Saturation ABG Base Excess ABG Hemoglobin Oxyhemoglobin Sodium Potassium Chloride Carbon Dioxide BUN Creatinine Glucose POC Glucose 113 H 69 L Lactic Acid Calcium Phosphorus Magnesium AST ALT Alkaline Phosphatase Lactate Dehydrogenase Troponin T 0.033 H C-Reactive Protein NT-Pro-B Natriuret Pep Total Protein Albumin LDL Cholesterol Direct Vitamin B12 Vancomycin Trough Crossmatch 11/06/21 11/06/21 11/06/21 05:50 15:50 15:50 WBC 25.5 H RBC 3.62 L Hgb 8.0 L Hct 27.5 L MCV 76 L MCH 22 L MCHC 29 L RDW 19.6 H Plt Count Seg Neuts % (Manual) 92.0 H Lymphocytes % (Manual) 5.0 L Seg Neutrophils # Man 23.5 H Lymphocytes # (Manual) Monocytes # (Manual) PT INR D-Dimer ABG pH 7.305 L ABG pO2 ABG HCO3 15.8 L ABG O2 Saturation ABG Base Excess -9.6 L ABG Hemoglobin 8.6 L Oxyhemoglobin 94.6 L Sodium Potassium Chloride 113.9 H Carbon Dioxide 17 L BUN 56 H Creatinine Glucose 114 H POC Glucose Lactic Acid Calcium 7.9 L Phosphorus Magnesium AST 1410 H ALT 934 H Alkaline Phosphatase 142 H Lactate Dehydrogenase Troponin T C-Reactive Protein NT-Pro-B Natriuret Pep Total Protein 5.0 L Albumin 2.6 L LDL Cholesterol Direct Vitamin B12 Vancomycin Trough Crossmatch 11/07/21 11/07/21 11/07/21 03:30 04:50 08:07 WBC RBC Hgb Hct MCV MCH MCHC RDW Plt Count Seg Neuts % (Manual) Lymphocytes % (Manual) Seg Neutrophils # Man Lymphocytes # (Manual) Monocytes # (Manual) PT INR D-Dimer ABG pH ABG pO2 296.9 H ABG HCO3 18.1 L ABG O2 Saturation 99.5 H ABG Base Excess -5.9 L ABG Hemoglobin 7.6 L Oxyhemoglobin Sodium Potassium Chloride Carbon Dioxide BUN Creatinine Glucose POC Glucose 106 H 108 H Lactic Acid Calcium Phosphorus Magnesium AST ALT Alkaline Phosphatase Lactate Dehydrogenase Troponin T C-Reactive Protein NT-Pro-B Natriuret Pep Total Protein Albumin LDL Cholesterol Direct Vitamin B12 Vancomycin Trough Crossmatch 11/08/21 11/08/21 11/08/21 03:10 18:05 23:43 WBC RBC Hgb Hct MCV MCH MCHC RDW Plt Count Seg Neuts % (Manual) Lymphocytes % (Manual) Seg Neutrophils # Man Lymphocytes # (Manual) Monocytes # (Manual) PT INR D-Dimer ABG pH ABG pO2 127.4 H ABG HCO3 ABG O2 Saturation ABG Base Excess -3.4 L ABG Hemoglobin 7.4 L Oxyhemoglobin Sodium Potassium Chloride Carbon Dioxide BUN Creatinine Glucose POC Glucose 113 H 141 H Lactic Acid Calcium Phosphorus Magnesium AST ALT Alkaline Phosphatase Lactate Dehydrogenase Troponin T C-Reactive Protein NT-Pro-B Natriuret Pep Total Protein Albumin LDL Cholesterol Direct Vitamin B12 Vancomycin Trough Crossmatch 11/08/21 11/08/21 11/09/21 Unknown Unknown 02:00 WBC 14.5 H RBC 3.35 L Hgb 7.5 L 8.1 L Hct 25.4 L 27.6 L MCV 76 L 76 L MCH 23 L 22 L MCHC RDW 19.9 H 19.9 H Plt Count Seg Neuts % (Manual) Lymphocytes % (Manual) Seg Neutrophils # Man Lymphocytes # (Manual) Monocytes # (Manual) PT INR D-Dimer ABG pH ABG pO2 ABG HCO3 ABG O2 Saturation ABG Base Excess ABG Hemoglobin Oxyhemoglobin Sodium 154 H D Potassium 3.3 L Chloride 120.7 H Carbon Dioxide 20 L BUN 38 H Creatinine Glucose POC Glucose Lactic Acid Calcium 8.3 L Phosphorus Magnesium AST ALT Alkaline Phosphatase Lactate Dehydrogenase Troponin T C-Reactive Protein NT-Pro-B Natriuret Pep Total Protein Albumin LDL Cholesterol Direct Vitamin B12 Vancomycin Trough Crossmatch 11/09/21 11/09/21 11/09/21 02:00 02:31 05:12 WBC RBC Hgb Hct MCV MCH MCHC RDW Plt Count Seg Neuts % (Manual) Lymphocytes % (Manual) Seg Neutrophils # Man Lymphocytes # (Manual) Monocytes # (Manual) PT INR D-Dimer ABG pH 7.479 H ABG pO2 121.3 H ABG HCO3 ABG O2 Saturation ABG Base Excess ABG Hemoglobin 7.3 L Oxyhemoglobin Sodium Potassium Chloride 112.5 H Carbon Dioxide BUN 33 H Creatinine Glucose 161 H POC Glucose 135 H Lactic Acid Calcium Phosphorus Magnesium AST 251 H ALT 481 H Alkaline Phosphatase Lactate Dehydrogenase Troponin T C-Reactive Protein NT-Pro-B Natriuret Pep Total Protein 5.0 L Albumin 2.8 L LDL Cholesterol Direct Vitamin B12 Vancomycin Trough Crossmatch 11/09/21 11/09/21 11/09/21 11:33 16:32 23:28 WBC RBC Hgb Hct MCV MCH MCHC RDW Plt Count Seg Neuts % (Manual) Lymphocytes % (Manual) Seg Neutrophils # Man Lymphocytes # (Manual) Monocytes # (Manual) PT INR D-Dimer ABG pH ABG pO2 ABG HCO3 ABG O2 Saturation ABG Base Excess ABG Hemoglobin Oxyhemoglobin Sodium Potassium Chloride Carbon Dioxide BUN Creatinine Glucose POC Glucose 132 H 133 H 143 H Lactic Acid Calcium Phosphorus Magnesium AST ALT Alkaline Phosphatase Lactate Dehydrogenase Troponin T C-Reactive Protein NT-Pro-B Natriuret Pep Total Protein Albumin LDL Cholesterol Direct Vitamin B12 Vancomycin Trough Crossmatch 11/10/21 11/10/21 11/10/21 04:00 04:00 05:35 WBC 16.0 H RBC 3.61 L Hgb 8.0 L Hct 27.1 L MCV 75 L MCH 22 L MCHC RDW 20.4 H Plt Count Seg Neuts % (Manual) Lymphocytes % (Manual) Seg Neutrophils # Man Lymphocytes # (Manual) Monocytes # (Manual) PT INR D-Dimer ABG pH ABG pO2 ABG HCO3 ABG O2 Saturation ABG Base Excess ABG Hemoglobin Oxyhemoglobin Sodium 149 H Potassium Chloride 114.1 H Carbon Dioxide BUN 31 H Creatinine Glucose 148 H POC Glucose 132 H Lactic Acid Calcium 8.2 L Phosphorus Magnesium AST ALT Alkaline Phosphatase Lactate Dehydrogenase Troponin T C-Reactive Protein NT-Pro-B Natriuret Pep Total Protein Albumin LDL Cholesterol Direct Vitamin B12 Vancomycin Trough Crossmatch 11/10/21 11/10/21 11/10/21 11:31 14:08 15:35 WBC RBC Hgb Hct MCV MCH MCHC RDW Plt Count Seg Neuts % (Manual) Lymphocytes % (Manual) Seg Neutrophils # Man Lymphocytes # (Manual) Monocytes # (Manual) PT INR D-Dimer ABG pH ABG pO2 126.6 H ABG HCO3 ABG O2 Saturation ABG Base Excess ABG Hemoglobin 7.4 L Oxyhemoglobin Sodium Potassium Chloride Carbon Dioxide BUN Creatinine Glucose POC Glucose 147 H Lactic Acid Calcium Phosphorus Magnesium AST ALT Alkaline Phosphatase Lactate Dehydrogenase Troponin T C-Reactive Protein NT-Pro-B Natriuret Pep Total Protein Albumin LDL Cholesterol Direct Vitamin B12 1823 H Vancomycin Trough Crossmatch 11/10/21 11/11/21 11/11/21 17:53 00:55 04:28 WBC RBC Hgb Hct MCV MCH MCHC RDW Plt Count Seg Neuts % (Manual) Lymphocytes % (Manual) Seg Neutrophils # Man Lymphocytes # (Manual) Monocytes # (Manual) PT INR D-Dimer ABG pH ABG pO2 ABG HCO3 ABG O2 Saturation ABG Base Excess ABG Hemoglobin Oxyhemoglobin Sodium 149 H Potassium Chloride 112.2 H Carbon Dioxide BUN 34 H Creatinine Glucose 148 H POC Glucose 140 H 145 H Lactic Acid Calcium 7.9 L Phosphorus Magnesium AST 53 H ALT 203 H Alkaline Phosphatase Lactate Dehydrogenase Troponin T C-Reactive Protein NT-Pro-B Natriuret Pep Total Protein 4.9 L Albumin 2.6 L LDL Cholesterol Direct Vitamin B12 Vancomycin Trough Crossmatch 11/11/21 11/11/21 11/11/21 04:28 04:28 05:28 WBC 20.9 H RBC 3.47 L Hgb 7.5 L Hct 26.0 L MCV 75 L MCH 22 L MCHC 29 L RDW 21.6 H Plt Count 132 L Seg Neuts % (Manual) Lymphocytes % (Manual) Seg Neutrophils # Man Lymphocytes # (Manual) Monocytes # (Manual) PT INR D-Dimer 2655.00 H ABG pH ABG pO2 ABG HCO3 ABG O2 Saturation ABG Base Excess ABG Hemoglobin Oxyhemoglobin Sodium Potassium Chloride Carbon Dioxide BUN Creatinine Glucose POC Glucose 154 H Lactic Acid Calcium Phosphorus Magnesium AST ALT Alkaline Phosphatase Lactate Dehydrogenase Troponin T C-Reactive Protein NT-Pro-B Natriuret Pep Total Protein Albumin LDL Cholesterol Direct Vitamin B12 Vancomycin Trough Crossmatch 11/11/21 11/11/21 11/12/21 12:38 18:13 00:14 WBC RBC Hgb Hct MCV MCH MCHC RDW Plt Count Seg Neuts % (Manual) Lymphocytes % (Manual) Seg Neutrophils # Man Lymphocytes # (Manual) Monocytes # (Manual) PT INR D-Dimer ABG pH ABG pO2 ABG HCO3 ABG O2 Saturation ABG Base Excess ABG Hemoglobin Oxyhemoglobin Sodium Potassium Chloride Carbon Dioxide BUN Creatinine Glucose POC Glucose 137 H 108 H 137 H Lactic Acid Calcium Phosphorus Magnesium AST ALT Alkaline Phosphatase Lactate Dehydrogenase Troponin T C-Reactive Protein NT-Pro-B Natriuret Pep Total Protein Albumin LDL Cholesterol Direct Vitamin B12 Vancomycin Trough Crossmatch 11/12/21 11/12/21 11/12/21 05:40 06:24 11:12 WBC RBC Hgb Hct MCV MCH MCHC RDW Plt Count Seg Neuts % (Manual) Lymphocytes % (Manual) Seg Neutrophils # Man Lymphocytes # (Manual) Monocytes # (Manual) PT INR D-Dimer ABG pH 7.586 H ABG pO2 150.6 H ABG HCO3 27.2 H ABG O2 Saturation 99.1 H ABG Base Excess 5.2 H ABG Hemoglobin 7.5 L Oxyhemoglobin Sodium Potassium Chloride Carbon Dioxide BUN Creatinine Glucose POC Glucose 132 H 140 H Lactic Acid Calcium Phosphorus Magnesium AST ALT Alkaline Phosphatase Lactate Dehydrogenase Troponin T C-Reactive Protein NT-Pro-B Natriuret Pep Total Protein Albumin LDL Cholesterol Direct Vitamin B12 Vancomycin Trough Crossmatch 11/12/21 11/12/21 11/12/21 14:50 14:50 17:13 WBC 19.8 H RBC 3.27 L Hgb 7.1 L Hct 24.5 L MCV 75 L MCH 22 L MCHC 29 L RDW 22.3 H Plt Count Seg Neuts % (Manual) Lymphocytes % (Manual) Seg Neutrophils # Man Lymphocytes # (Manual) Monocytes # (Manual) PT INR D-Dimer ABG pH ABG pO2 ABG HCO3 ABG O2 Saturation ABG Base Excess ABG Hemoglobin Oxyhemoglobin Sodium 150 H Potassium 3.3 L Chloride 112.0 H Carbon Dioxide BUN 40 H Creatinine Glucose 151 H POC Glucose 121 H Lactic Acid Calcium 7.4 L Phosphorus 1.70 L Magnesium 1.40 L AST ALT Alkaline Phosphatase Lactate Dehydrogenase Troponin T C-Reactive Protein NT-Pro-B Natriuret Pep Total Protein Albumin LDL Cholesterol Direct Vitamin B12 Vancomycin Trough Crossmatch 11/12/21 11/13/21 11/13/21 23:19 05:34 06:30 WBC RBC Hgb Hct MCV MCH MCHC RDW Plt Count Seg Neuts % (Manual) Lymphocytes % (Manual) Seg Neutrophils # Man Lymphocytes # (Manual) Monocytes # (Manual) PT INR D-Dimer ABG pH ABG pO2 ABG HCO3 ABG O2 Saturation ABG Base Excess ABG Hemoglobin Oxyhemoglobin Sodium 149 H Potassium Chloride 60.0 L Carbon Dioxide BUN 40 H Creatinine Glucose 146 H POC Glucose 113 H 132 H Lactic Acid Calcium 7.3 L Phosphorus Magnesium 2.40 H AST ALT 72 H Alkaline Phosphatase Lactate Dehydrogenase Troponin T C-Reactive Protein NT-Pro-B Natriuret Pep Total Protein 5.2 L Albumin 2.2 L LDL Cholesterol Direct Vitamin B12 Vancomycin Trough Crossmatch 11/13/21 11/13/21 11/13/21 06:30 08:30 11:19 WBC 21.2 H RBC 3.12 L Hgb 6.8 L Hct 23.2 L MCV 74 L MCH 22 L MCHC 29 L RDW 22.2 H Plt Count 135 L Seg Neuts % (Manual) Lymphocytes % (Manual) Seg Neutrophils # Man Lymphocytes # (Manual) Monocytes # (Manual) PT INR D-Dimer ABG pH ABG pO2 ABG HCO3 ABG O2 Saturation ABG Base Excess ABG Hemoglobin Oxyhemoglobin Sodium Potassium Chloride Carbon Dioxide BUN Creatinine Glucose POC Glucose 136 H Lactic Acid Calcium Phosphorus Magnesium AST ALT Alkaline Phosphatase Lactate Dehydrogenase Troponin T C-Reactive Protein NT-Pro-B Natriuret Pep Total Protein Albumin LDL Cholesterol Direct Vitamin B12 Vancomycin Trough Crossmatch See Detail 11/13/21 11/14/21 11/14/21 18:21 00:01 04:46 WBC 20.0 H RBC 3.41 L Hgb 7.9 L Hct 26.8 L MCV MCH 23 L MCHC 29 L RDW 24.0 H Plt Count Seg Neuts % (Manual) Lymphocytes % (Manual) Seg Neutrophils # Man Lymphocytes # (Manual) Monocytes # (Manual) PT INR D-Dimer ABG pH ABG pO2 ABG HCO3 ABG O2 Saturation ABG Base Excess ABG Hemoglobin Oxyhemoglobin Sodium Potassium Chloride Carbon Dioxide BUN Creatinine Glucose POC Glucose 149 H 141 H Lactic Acid Calcium Phosphorus Magnesium AST ALT Alkaline Phosphatase Lactate Dehydrogenase Troponin T C-Reactive Protein NT-Pro-B Natriuret Pep Total Protein Albumin LDL Cholesterol Direct Vitamin B12 Vancomycin Trough Crossmatch 11/14/21 11/14/21 11/14/21 04:46 05:10 11:10 WBC RBC Hgb Hct MCV MCH MCHC RDW Plt Count Seg Neuts % (Manual) Lymphocytes % (Manual) Seg Neutrophils # Man Lymphocytes # (Manual) Monocytes # (Manual) PT INR D-Dimer ABG pH ABG pO2 ABG HCO3 ABG O2 Saturation ABG Base Excess ABG Hemoglobin Oxyhemoglobin Sodium 148 H Potassium Chloride 113.1 H Carbon Dioxide BUN 43 H Creatinine Glucose 140 H POC Glucose 132 H 133 H Lactic Acid Calcium 7.5 L Phosphorus Magnesium AST ALT Alkaline Phosphatase Lactate Dehydrogenase Troponin T C-Reactive Protein NT-Pro-B Natriuret Pep Total Protein Albumin LDL Cholesterol Direct Vitamin B12 Vancomycin Trough Crossmatch 11/14/21 11/14/21 11/14/21 16:14 17:48 23:23 WBC RBC Hgb Hct MCV MCH MCHC RDW Plt Count Seg Neuts % (Manual) Lymphocytes % (Manual) Seg Neutrophils # Man Lymphocytes # (Manual) Monocytes # (Manual) PT INR D-Dimer ABG pH ABG pO2 ABG HCO3 28.0 H ABG O2 Saturation ABG Base Excess 3.1 H ABG Hemoglobin 5.8 L Oxyhemoglobin 94.8 L Sodium Potassium Chloride Carbon Dioxide BUN Creatinine Glucose POC Glucose 130 H 136 H Lactic Acid Calcium Phosphorus Magnesium AST ALT Alkaline Phosphatase Lactate Dehydrogenase Troponin T C-Reactive Protein NT-Pro-B Natriuret Pep Total Protein Albumin LDL Cholesterol Direct Vitamin B12 Vancomycin Trough Crossmatch 11/15/21 11/15/21 11/15/21 05:20 05:50 05:50 WBC 19.9 H RBC 3.50 L Hgb 8.2 L Hct 27.9 L MCV MCH 23 L MCHC 29 L RDW 24.9 H Plt Count Seg Neuts % (Manual) Lymphocytes % (Manual) Seg Neutrophils # Man Lymphocytes # (Manual) Monocytes # (Manual) PT INR D-Dimer ABG pH ABG pO2 ABG HCO3 ABG O2 Saturation ABG Base Excess ABG Hemoglobin Oxyhemoglobin Sodium 149 H Potassium Chloride 112.0 H Carbon Dioxide BUN 48 H Creatinine Glucose 152 H POC Glucose 137 H Lactic Acid Calcium 7.9 L Phosphorus Magnesium AST ALT Alkaline Phosphatase Lactate Dehydrogenase Troponin T C-Reactive Protein NT-Pro-B Natriuret Pep Total Protein Albumin LDL Cholesterol Direct Vitamin B12 Vancomycin Trough Crossmatch 11/15/21 11/15/21 11/15/21 12:12 17:07 23:24 WBC RBC Hgb Hct MCV MCH MCHC RDW Plt Count Seg Neuts % (Manual) Lymphocytes % (Manual) Seg Neutrophils # Man Lymphocytes # (Manual) Monocytes # (Manual) PT INR D-Dimer ABG pH ABG pO2 ABG HCO3 ABG O2 Saturation ABG Base Excess ABG Hemoglobin Oxyhemoglobin Sodium Potassium Chloride Carbon Dioxide BUN Creatinine Glucose POC Glucose 114 H 135 H 123 H Lactic Acid Calcium Phosphorus Magnesium AST ALT Alkaline Phosphatase Lactate Dehydrogenase Troponin T C-Reactive Protein NT-Pro-B Natriuret Pep Total Protein Albumin LDL Cholesterol Direct Vitamin B12 Vancomycin Trough Crossmatch 11/16/21 11/16/21 11/16/21 05:21 10:00 10:00 WBC 21.7 H RBC 2.57 L Hgb 6.0 L Hct 20.2 L D MCV MCH 24 L MCHC RDW 26.3 H Plt Count Seg Neuts % (Manual) Lymphocytes % (Manual) Seg Neutrophils # Man Lymphocytes # (Manual) Monocytes # (Manual) PT INR D-Dimer ABG pH ABG pO2 ABG HCO3 ABG O2 Saturation ABG Base Excess ABG Hemoglobin Oxyhemoglobin Sodium 153 H Potassium Chloride 114.9 H Carbon Dioxide BUN 74 H Creatinine Glucose 155 H POC Glucose 127 H Lactic Acid Calcium 8.1 L Phosphorus Magnesium AST ALT Alkaline Phosphatase Lactate Dehydrogenase Troponin T C-Reactive Protein NT-Pro-B Natriuret Pep Total Protein Albumin LDL Cholesterol Direct Vitamin B12 Vancomycin Trough Crossmatch 11/16/21 11/16/21 11/16/21 11:34 14:00 15:25 WBC 17.2 H RBC 2.08 L Hgb 4.7 L* Hct 16.2 L* MCV 78 L MCH 23 L MCHC 29 L RDW 26.0 H Plt Count Seg Neuts % (Manual) 87.0 H Lymphocytes % (Manual) 8.0 L Seg Neutrophils # Man 15.0 H Lymphocytes # (Manual) Monocytes # (Manual) 0.9 H PT INR D-Dimer ABG pH ABG pO2 ABG HCO3 ABG O2 Saturation ABG Base Excess ABG Hemoglobin Oxyhemoglobin Sodium Potassium Chloride Carbon Dioxide BUN Creatinine Glucose POC Glucose 131 H Lactic Acid Calcium Phosphorus Magnesium AST ALT Alkaline Phosphatase Lactate Dehydrogenase Troponin T C-Reactive Protein NT-Pro-B Natriuret Pep Total Protein Albumin LDL Cholesterol Direct Vitamin B12 Vancomycin Trough Crossmatch See Detail 11/16/21 11/16/21 11/16/21 15:25 17:21 22:43 WBC RBC Hgb 8.6 L D Hct 27.7 L D MCV MCH MCHC RDW Plt Count Seg Neuts % (Manual) Lymphocytes % (Manual) Seg Neutrophils # Man Lymphocytes # (Manual) Monocytes # (Manual) PT INR D-Dimer ABG pH ABG pO2 ABG HCO3 ABG O2 Saturation ABG Base Excess ABG Hemoglobin Oxyhemoglobin Sodium 148 H Potassium Chloride 113.2 H Carbon Dioxide BUN 84 H Creatinine Glucose 164 H POC Glucose 124 H Lactic Acid Calcium 7.6 L Phosphorus Magnesium AST ALT Alkaline Phosphatase Lactate Dehydrogenase Troponin T C-Reactive Protein NT-Pro-B Natriuret Pep Total Protein Albumin LDL Cholesterol Direct Vitamin B12 Vancomycin Trough Crossmatch 11/16/21 11/17/21 11/17/21 23:07 05:33 05:56 WBC 25.1 H RBC 3.47 L Hgb 8.7 L Hct 28.5 L MCV MCH 25 L MCHC RDW 22.3 H Plt Count Seg Neuts % (Manual) Lymphocytes % (Manual) Seg Neutrophils # Man Lymphocytes # (Manual) Monocytes # (Manual) PT INR D-Dimer ABG pH ABG pO2 ABG HCO3 ABG O2 Saturation ABG Base Excess ABG Hemoglobin Oxyhemoglobin Sodium Potassium Chloride Carbon Dioxide BUN Creatinine Glucose POC Glucose 128 H 133 H Lactic Acid Calcium Phosphorus Magnesium AST ALT Alkaline Phosphatase Lactate Dehydrogenase Troponin T C-Reactive Protein NT-Pro-B Natriuret Pep Total Protein Albumin LDL Cholesterol Direct Vitamin B12 Vancomycin Trough Crossmatch 11/17/21 11/17/21 11/17/21 05:56 11:00 11:55 WBC RBC Hgb 8.3 L Hct 26.9 L MCV MCH MCHC RDW Plt Count Seg Neuts % (Manual) Lymphocytes % (Manual) Seg Neutrophils # Man Lymphocytes # (Manual) Monocytes # (Manual) PT INR D-Dimer ABG pH ABG pO2 ABG HCO3 ABG O2 Saturation ABG Base Excess ABG Hemoglobin Oxyhemoglobin Sodium 151 H Potassium Chloride 113.6 H Carbon Dioxide BUN 85 H Creatinine Glucose 132 H POC Glucose 121 H Lactic Acid Calcium 7.8 L Phosphorus Magnesium AST ALT Alkaline Phosphatase Lactate Dehydrogenase Troponin T C-Reactive Protein NT-Pro-B Natriuret Pep Total Protein 5.1 L Albumin 2.2 L LDL Cholesterol Direct Vitamin B12 Vancomycin Trough Crossmatch 11/17/21 11/17/21 11/18/21 18:04 18:55 00:26 WBC RBC Hgb 7.5 L 7.1 L Hct 24.8 L 23.6 L MCV MCH MCHC RDW Plt Count Seg Neuts % (Manual) Lymphocytes % (Manual) Seg Neutrophils # Man Lymphocytes # (Manual) Monocytes # (Manual) PT INR D-Dimer ABG pH ABG pO2 ABG HCO3 ABG O2 Saturation ABG Base Excess ABG Hemoglobin Oxyhemoglobin Sodium Potassium Chloride Carbon Dioxide BUN Creatinine Glucose POC Glucose 144 H Lactic Acid Calcium Phosphorus Magnesium AST ALT Alkaline Phosphatase Lactate Dehydrogenase Troponin T C-Reactive Protein NT-Pro-B Natriuret Pep Total Protein Albumin LDL Cholesterol Direct Vitamin B12 Vancomycin Trough Crossmatch 11/18/21 11/18/21 11/18/21 00:43 05:10 05:10 WBC 12.5 H RBC 2.39 L Hgb 6.1 L Hct 20.2 L MCV MCH 25 L MCHC RDW 23.2 H Plt Count Seg Neuts % (Manual) Lymphocytes % (Manual) Seg Neutrophils # Man Lymphocytes # (Manual) Monocytes # (Manual) PT INR D-Dimer ABG pH ABG pO2 ABG HCO3 ABG O2 Saturation ABG Base Excess ABG Hemoglobin Oxyhemoglobin Sodium 131 L D Potassium 2.9 L* D Chloride 97.8 L Carbon Dioxide BUN 58 H Creatinine Glucose 665 H* POC Glucose 139 H Lactic Acid Calcium 7.0 L Phosphorus 2.20 L D Magnesium 1.50 L AST ALT Alkaline Phosphatase Lactate Dehydrogenase Troponin T C-Reactive Protein NT-Pro-B Natriuret Pep Total Protein Albumin LDL Cholesterol Direct Vitamin B12 Vancomycin Trough Crossmatch 11/18/21 11/18/21 11/18/21 05:23 07:10 10:45 WBC RBC Hgb Hct MCV MCH MCHC RDW Plt Count Seg Neuts % (Manual) Lymphocytes % (Manual) Seg Neutrophils # Man Lymphocytes # (Manual) Monocytes # (Manual) PT INR D-Dimer ABG pH ABG pO2 ABG HCO3 ABG O2 Saturation ABG Base Excess ABG Hemoglobin Oxyhemoglobin Sodium 148 H D Potassium 3.1 L Chloride 111.9 H Carbon Dioxide BUN 63 H Creatinine Glucose 141 H POC Glucose 124 H Lactic Acid Calcium 8.1 L D Phosphorus Magnesium AST ALT Alkaline Phosphatase Lactate Dehydrogenase Troponin T C-Reactive Protein NT-Pro-B Natriuret Pep Total Protein Albumin LDL Cholesterol Direct Vitamin B12 Vancomycin Trough Crossmatch See Detail 11/18/21 11/19/21 11/19/21 11:57 00:19 04:55 WBC RBC 3.35 L Hgb 9.0 L 8.9 L Hct 28.3 L D 28.1 L MCV MCH 27 L MCHC RDW 20.3 H Plt Count Seg Neuts % (Manual) Lymphocytes % (Manual) Seg Neutrophils # Man Lymphocytes # (Manual) Monocytes # (Manual) PT INR D-Dimer ABG pH ABG pO2 ABG HCO3 ABG O2 Saturation ABG Base Excess ABG Hemoglobin Oxyhemoglobin Sodium Potassium Chloride Carbon Dioxide BUN Creatinine Glucose POC Glucose 119 H Lactic Acid Calcium Phosphorus Magnesium AST ALT Alkaline Phosphatase Lactate Dehydrogenase Troponin T C-Reactive Protein NT-Pro-B Natriuret Pep Total Protein Albumin LDL Cholesterol Direct Vitamin B12 Vancomycin Trough Crossmatch 11/19/21 11/19/21 11/20/21 04:55 05:42 00:55 WBC RBC Hgb 9.0 L Hct 28.6 L MCV MCH MCHC RDW Plt Count Seg Neuts % (Manual) Lymphocytes % (Manual) Seg Neutrophils # Man Lymphocytes # (Manual) Monocytes # (Manual) PT INR D-Dimer ABG pH ABG pO2 ABG HCO3 ABG O2 Saturation ABG Base Excess ABG Hemoglobin Oxyhemoglobin Sodium Potassium 3.5 L Chloride 108.6 H Carbon Dioxide BUN 47 H Creatinine Glucose 207 H POC Glucose 63 L Lactic Acid Calcium 7.1 L Phosphorus Magnesium AST ALT Alkaline Phosphatase Lactate Dehydrogenase Troponin T C-Reactive Protein NT-Pro-B Natriuret Pep Total Protein Albumin LDL Cholesterol Direct Vitamin B12 Vancomycin Trough Crossmatch 11/20/21 11/20/21 11/20/21 05:40 05:40 Unknown WBC RBC 3.40 L Hgb 9.1 L Hct 28.8 L MCV MCH 27 L MCHC RDW 20.7 H Plt Count Seg Neuts % (Manual) Lymphocytes % (Manual) Seg Neutrophils # Man Lymphocytes # (Manual) Monocytes # (Manual) PT INR D-Dimer ABG pH ABG pO2 ABG HCO3 ABG O2 Saturation ABG Base Excess -2.7 L ABG Hemoglobin 9.5 L Oxyhemoglobin 94.3 L Sodium Potassium 3.5 L Chloride 108.9 H Carbon Dioxide BUN 37 H Creatinine Glucose 117 H POC Glucose Lactic Acid Calcium 7.5 L Phosphorus Magnesium AST ALT Alkaline Phosphatase Lactate Dehydrogenase Troponin T C-Reactive Protein NT-Pro-B Natriuret Pep Total Protein Albumin LDL Cholesterol Direct Vitamin B12 Vancomycin Trough Crossmatch 11/21/21 11/21/21 11/21/21 04:30 04:30 16:00 WBC RBC 3.25 L Hgb 8.6 L Hct 28.1 L MCV MCH 26 L MCHC RDW 20.7 H Plt Count Seg Neuts % (Manual) Lymphocytes % (Manual) Seg Neutrophils # Man Lymphocytes # (Manual) Monocytes # (Manual) PT INR D-Dimer ABG pH ABG pO2 114.2 H ABG HCO3 ABG O2 Saturation ABG Base Excess ABG Hemoglobin 9.1 L Oxyhemoglobin Sodium 134 L Potassium Chloride Carbon Dioxide 20 L BUN 34 H Creatinine Glucose POC Glucose Lactic Acid Calcium 7.1 L Phosphorus Magnesium AST ALT Alkaline Phosphatase Lactate Dehydrogenase Troponin T C-Reactive Protein NT-Pro-B Natriuret Pep Total Protein Albumin LDL Cholesterol Direct Vitamin B12 Vancomycin Trough Crossmatch 11/22/21 11/22/21 11/22/21 07:07 07:07 23:54 WBC RBC 3.30 L Hgb 9.0 L Hct 28.5 L MCV MCH 27 L MCHC RDW 21.0 H Plt Count Seg Neuts % (Manual) Lymphocytes % (Manual) Seg Neutrophils # Man Lymphocytes # (Manual) Monocytes # (Manual) PT INR D-Dimer ABG pH ABG pO2 ABG HCO3 ABG O2 Saturation ABG Base Excess ABG Hemoglobin Oxyhemoglobin Sodium Potassium Chloride Carbon Dioxide BUN 32 H Creatinine Glucose 106 H POC Glucose 110 H Lactic Acid Calcium 7.5 L Phosphorus Magnesium AST ALT Alkaline Phosphatase Lactate Dehydrogenase Troponin T C-Reactive Protein NT-Pro-B Natriuret Pep Total Protein Albumin LDL Cholesterol Direct Vitamin B12 Vancomycin Trough Crossmatch 11/23/21 11/23/21 11/23/21 04:38 04:38 06:01 WBC RBC 3.23 L Hgb 8.8 L Hct 28.0 L MCV MCH 27 L MCHC RDW 21.3 H Plt Count Seg Neuts % (Manual) Lymphocytes % (Manual) Seg Neutrophils # Man Lymphocytes # (Manual) Monocytes # (Manual) PT INR D-Dimer ABG pH ABG pO2 ABG HCO3 ABG O2 Saturation ABG Base Excess ABG Hemoglobin Oxyhemoglobin Sodium 136 L Potassium Chloride Carbon Dioxide 20 L BUN 32 H Creatinine Glucose 109 H POC Glucose 115 H Lactic Acid Calcium 7.7 L Phosphorus Magnesium AST ALT Alkaline Phosphatase Lactate Dehydrogenase Troponin T C-Reactive Protein NT-Pro-B Natriuret Pep Total Protein Albumin LDL Cholesterol Direct Vitamin B12 Vancomycin Trough Crossmatch 11/23/21 11/24/21 11/24/21 11:40 00:03 04:13 WBC RBC 3.18 L Hgb 8.5 L Hct 27.5 L MCV MCH 27 L MCHC RDW 21.6 H Plt Count Seg Neuts % (Manual) Lymphocytes % (Manual) Seg Neutrophils # Man Lymphocytes # (Manual) Monocytes # (Manual) PT INR D-Dimer ABG pH ABG pO2 ABG HCO3 ABG O2 Saturation ABG Base Excess ABG Hemoglobin Oxyhemoglobin Sodium Potassium Chloride Carbon Dioxide BUN Creatinine Glucose POC Glucose 117 H 111 H Lactic Acid Calcium Phosphorus Magnesium AST ALT Alkaline Phosphatase Lactate Dehydrogenase Troponin T C-Reactive Protein NT-Pro-B Natriuret Pep Total Protein Albumin LDL Cholesterol Direct Vitamin B12 Vancomycin Trough Crossmatch 11/24/21 11/24/21 11/24/21 04:13 05:30 11:10 WBC RBC Hgb Hct MCV MCH MCHC RDW Plt Count Seg Neuts % (Manual) Lymphocytes % (Manual) Seg Neutrophils # Man Lymphocytes # (Manual) Monocytes # (Manual) PT INR D-Dimer ABG pH ABG pO2 ABG HCO3 ABG O2 Saturation ABG Base Excess ABG Hemoglobin Oxyhemoglobin Sodium Potassium Chloride Carbon Dioxide BUN 31 H Creatinine Glucose 101 H POC Glucose 115 H 107 H Lactic Acid Calcium 7.7 L Phosphorus Magnesium AST ALT Alkaline Phosphatase Lactate Dehydrogenase Troponin T C-Reactive Protein NT-Pro-B Natriuret Pep Total Protein Albumin LDL Cholesterol Direct Vitamin B12 Vancomycin Trough Crossmatch 11/24/21 11/24/21 11/25/21 16:34 17:57 05:12 WBC RBC 3.11 L Hgb 8.2 L Hct 26.6 L MCV MCH 26 L MCHC RDW 21.3 H Plt Count Seg Neuts % (Manual) Lymphocytes % (Manual) Seg Neutrophils # Man Lymphocytes # (Manual) Monocytes # (Manual) PT INR D-Dimer ABG pH ABG pO2 ABG HCO3 ABG O2 Saturation ABG Base Excess ABG Hemoglobin Oxyhemoglobin Sodium Potassium Chloride Carbon Dioxide BUN Creatinine Glucose POC Glucose 115 H 110 H Lactic Acid Calcium Phosphorus Magnesium AST ALT Alkaline Phosphatase Lactate Dehydrogenase Troponin T C-Reactive Protein NT-Pro-B Natriuret Pep Total Protein Albumin LDL Cholesterol Direct Vitamin B12 Vancomycin Trough Crossmatch 11/25/21 11/25/21 11/26/21 05:12 11:20 05:00 WBC RBC 3.30 L Hgb 8.8 L Hct 28.2 L MCV MCH 27 L MCHC RDW 20.7 H Plt Count Seg Neuts % (Manual) Lymphocytes % (Manual) Seg Neutrophils # Man Lymphocytes # (Manual) Monocytes # (Manual) PT INR D-Dimer ABG pH ABG pO2 ABG HCO3 ABG O2 Saturation ABG Base Excess ABG Hemoglobin Oxyhemoglobin Sodium Potassium Chloride Carbon Dioxide BUN 32 H Creatinine Glucose 118 H POC Glucose 118 H Lactic Acid Calcium 8.2 L Phosphorus Magnesium AST ALT Alkaline Phosphatase Lactate Dehydrogenase Troponin T C-Reactive Protein NT-Pro-B Natriuret Pep Total Protein Albumin LDL Cholesterol Direct Vitamin B12 Vancomycin Trough Crossmatch 11/26/21 11/26/21 11/26/21 05:00 05:00 05:44 WBC RBC Hgb Hct MCV MCH MCHC RDW Plt Count Seg Neuts % (Manual) Lymphocytes % (Manual) Seg Neutrophils # Man Lymphocytes # (Manual) Monocytes # (Manual) PT 16.9 H INR 1.24 H D-Dimer ABG pH ABG pO2 ABG HCO3 ABG O2 Saturation ABG Base Excess ABG Hemoglobin Oxyhemoglobin Sodium Potassium Chloride Carbon Dioxide BUN 31 H Creatinine Glucose 104 H POC Glucose 110 H Lactic Acid Calcium 7.9 L Phosphorus Magnesium AST ALT Alkaline Phosphatase Lactate Dehydrogenase Troponin T C-Reactive Protein NT-Pro-B Natriuret Pep Total Protein Albumin LDL Cholesterol Direct Vitamin B12 Vancomycin Trough Crossmatch 11/26/21 11/27/21 11/27/21 23:55 07:40 07:40 WBC RBC 3.18 L Hgb 8.5 L Hct 27.0 L MCV MCH 27 L MCHC RDW 21.2 H Plt Count Seg Neuts % (Manual) Lymphocytes % (Manual) Seg Neutrophils # Man Lymphocytes # (Manual) Monocytes # (Manual) PT INR D-Dimer ABG pH ABG pO2 ABG HCO3 ABG O2 Saturation ABG Base Excess ABG Hemoglobin Oxyhemoglobin Sodium Potassium Chloride Carbon Dioxide BUN 27 H Creatinine Glucose 112 H POC Glucose 63 L Lactic Acid Calcium 7.6 L Phosphorus Magnesium AST ALT Alkaline Phosphatase Lactate Dehydrogenase Troponin T C-Reactive Protein NT-Pro-B Natriuret Pep Total Protein Albumin LDL Cholesterol Direct Vitamin B12 Vancomycin Trough Crossmatch 11/27/21 11/27/21 11/27/21 12:04 13:40 13:40 WBC RBC 3.31 L Hgb 8.7 L Hct 28.0 L MCV MCH 26 L MCHC RDW 20.7 H Plt Count Seg Neuts % (Manual) Lymphocytes % (Manual) Seg Neutrophils # Man Lymphocytes # (Manual) Monocytes # (Manual) PT INR D-Dimer ABG pH ABG pO2 ABG HCO3 ABG O2 Saturation ABG Base Excess ABG Hemoglobin Oxyhemoglobin Sodium 136 L Potassium Chloride Carbon Dioxide BUN 25 H Creatinine Glucose 127 H POC Glucose 109 H Lactic Acid Calcium 7.6 L Phosphorus Magnesium 1.40 L AST ALT Alkaline Phosphatase Lactate Dehydrogenase Troponin T C-Reactive Protein NT-Pro-B Natriuret Pep Total Protein Albumin LDL Cholesterol Direct Vitamin B12 Vancomycin Trough Crossmatch 11/27/21 11/27/21 11/28/21 17:44 23:33 12:20 WBC RBC Hgb Hct MCV MCH MCHC RDW Plt Count Seg Neuts % (Manual) Lymphocytes % (Manual) Seg Neutrophils # Man Lymphocytes # (Manual) Monocytes # (Manual) PT INR D-Dimer ABG pH ABG pO2 ABG HCO3 ABG O2 Saturation ABG Base Excess ABG Hemoglobin Oxyhemoglobin Sodium Potassium Chloride Carbon Dioxide BUN Creatinine Glucose POC Glucose 107 H 108 H 114 H Lactic Acid Calcium Phosphorus Magnesium AST ALT Alkaline Phosphatase Lactate Dehydrogenase Troponin T C-Reactive Protein NT-Pro-B Natriuret Pep Total Protein Albumin LDL Cholesterol Direct Vitamin B12 Vancomycin Trough Crossmatch 11/29/21 11/29/21 11/29/21 00:09 03:20 03:20 WBC RBC 3.05 L Hgb 8.2 L Hct 25.8 L MCV MCH 27 L MCHC RDW 20.9 H Plt Count Seg Neuts % (Manual) Lymphocytes % (Manual) Seg Neutrophils # Man Lymphocytes # (Manual) Monocytes # (Manual) PT INR D-Dimer ABG pH ABG pO2 ABG HCO3 ABG O2 Saturation ABG Base Excess ABG Hemoglobin Oxyhemoglobin Sodium 133 L Potassium Chloride Carbon Dioxide BUN 24 H Creatinine Glucose 137 H POC Glucose 134 H Lactic Acid Calcium 7.4 L Phosphorus Magnesium AST ALT Alkaline Phosphatase Lactate Dehydrogenase Troponin T C-Reactive Protein NT-Pro-B Natriuret Pep Total Protein Albumin LDL Cholesterol Direct Vitamin B12 Vancomycin Trough Crossmatch 11/29/21 11/29/21 11/29/21 05:38 11:39 17:11 WBC RBC Hgb Hct MCV MCH MCHC RDW Plt Count Seg Neuts % (Manual) Lymphocytes % (Manual) Seg Neutrophils # Man Lymphocytes # (Manual) Monocytes # (Manual) PT INR D-Dimer ABG pH ABG pO2 ABG HCO3 ABG O2 Saturation ABG Base Excess ABG Hemoglobin Oxyhemoglobin Sodium Potassium Chloride Carbon Dioxide BUN Creatinine Glucose POC Glucose 117 H 143 H 124 H Lactic Acid Calcium Phosphorus Magnesium AST ALT Alkaline Phosphatase Lactate Dehydrogenase Troponin T C-Reactive Protein NT-Pro-B Natriuret Pep Total Protein Albumin LDL Cholesterol Direct Vitamin B12 Vancomycin Trough Crossmatch 11/29/21 11/30/21 11/30/21 20:15 05:40 05:40 WBC 12.6 H RBC 3.41 L Hgb 9.1 L Hct 28.9 L MCV MCH 27 L MCHC RDW 20.4 H Plt Count Seg Neuts % (Manual) Lymphocytes % (Manual) Seg Neutrophils # Man Lymphocytes # (Manual) Monocytes # (Manual) PT INR D-Dimer ABG pH ABG pO2 ABG HCO3 ABG O2 Saturation ABG Base Excess ABG Hemoglobin Oxyhemoglobin Sodium Potassium Chloride Carbon Dioxide BUN 24 H Creatinine Glucose 131 H POC Glucose Lactic Acid Calcium 7.6 L Phosphorus Magnesium AST ALT Alkaline Phosphatase Lactate Dehydrogenase Troponin T 0.045 H C-Reactive Protein NT-Pro-B Natriuret Pep Total Protein Albumin LDL Cholesterol Direct 25 L Vitamin B12 Vancomycin Trough Crossmatch 11/30/21 11/30/21 12/01/21 11:29 16:51 05:00 WBC RBC 2.97 L Hgb 8.0 L Hct 25.0 L MCV MCH 27 L MCHC RDW 20.8 H Plt Count Seg Neuts % (Manual) Lymphocytes % (Manual) Seg Neutrophils # Man Lymphocytes # (Manual) Monocytes # (Manual) PT INR D-Dimer ABG pH ABG pO2 ABG HCO3 ABG O2 Saturation ABG Base Excess ABG Hemoglobin Oxyhemoglobin Sodium Potassium Chloride Carbon Dioxide BUN Creatinine Glucose POC Glucose 123 H 114 H Lactic Acid Calcium Phosphorus Magnesium AST ALT Alkaline Phosphatase Lactate Dehydrogenase Troponin T C-Reactive Protein NT-Pro-B Natriuret Pep Total Protein Albumin LDL Cholesterol Direct Vitamin B12 Vancomycin Trough Crossmatch 12/01/21 12/01/21 12/01/21 05:00 05:25 11:54 WBC RBC Hgb Hct MCV MCH MCHC RDW Plt Count Seg Neuts % (Manual) Lymphocytes % (Manual) Seg Neutrophils # Man Lymphocytes # (Manual) Monocytes # (Manual) PT INR D-Dimer ABG pH ABG pO2 ABG HCO3 ABG O2 Saturation ABG Base Excess ABG Hemoglobin Oxyhemoglobin Sodium 136 L Potassium Chloride Carbon Dioxide BUN 24 H Creatinine Glucose 117 H POC Glucose 108 H 107 H Lactic Acid Calcium 7.5 L Phosphorus Magnesium 1.60 L AST ALT Alkaline Phosphatase Lactate Dehydrogenase Troponin T C-Reactive Protein NT-Pro-B Natriuret Pep Total Protein Albumin LDL Cholesterol Direct Vitamin B12 Vancomycin Trough Crossmatch 12/01/21 12/02/21 12/02/21 17:40 00:07 04:20 WBC RBC 2.92 L Hgb 7.7 L Hct 24.3 L MCV MCH 26 L MCHC RDW 20.5 H Plt Count Seg Neuts % (Manual) Lymphocytes % (Manual) Seg Neutrophils # Man Lymphocytes # (Manual) Monocytes # (Manual) PT INR D-Dimer ABG pH ABG pO2 ABG HCO3 ABG O2 Saturation ABG Base Excess ABG Hemoglobin Oxyhemoglobin Sodium Potassium Chloride Carbon Dioxide BUN Creatinine Glucose POC Glucose 123 H 110 H Lactic Acid Calcium Phosphorus Magnesium AST ALT Alkaline Phosphatase Lactate Dehydrogenase Troponin T C-Reactive Protein NT-Pro-B Natriuret Pep Total Protein Albumin LDL Cholesterol Direct Vitamin B12 Vancomycin Trough Crossmatch 12/02/21 12/02/21 12/02/21 04:20 11:17 18:20 WBC RBC Hgb Hct MCV MCH MCHC RDW Plt Count Seg Neuts % (Manual) Lymphocytes % (Manual) Seg Neutrophils # Man Lymphocytes # (Manual) Monocytes # (Manual) PT INR D-Dimer ABG pH ABG pO2 ABG HCO3 ABG O2 Saturation ABG Base Excess ABG Hemoglobin Oxyhemoglobin Sodium 135 L Potassium Chloride Carbon Dioxide BUN 26 H Creatinine Glucose 121 H POC Glucose 117 H 113 H Lactic Acid Calcium 7.4 L Phosphorus Magnesium AST ALT Alkaline Phosphatase Lactate Dehydrogenase Troponin T C-Reactive Protein NT-Pro-B Natriuret Pep Total Protein Albumin LDL Cholesterol Direct Vitamin B12 Vancomycin Trough Crossmatch 12/03/21 12/03/21 12/03/21 00:12 04:00 04:00 WBC RBC 2.99 L Hgb 7.8 L Hct 24.6 L MCV MCH 26 L MCHC RDW 20.2 H Plt Count Seg Neuts % (Manual) Lymphocytes % (Manual) Seg Neutrophils # Man Lymphocytes # (Manual) Monocytes # (Manual) PT INR D-Dimer ABG pH ABG pO2 ABG HCO3 ABG O2 Saturation ABG Base Excess ABG Hemoglobin Oxyhemoglobin Sodium 136 L Potassium Chloride Carbon Dioxide BUN 27 H Creatinine Glucose 133 H POC Glucose 121 H Lactic Acid Calcium 7.5 L Phosphorus Magnesium AST ALT Alkaline Phosphatase Lactate Dehydrogenase Troponin T C-Reactive Protein NT-Pro-B Natriuret Pep Total Protein Albumin LDL Cholesterol Direct Vitamin B12 Vancomycin Trough Crossmatch 12/03/21 12/03/21 12/03/21 06:30 11:13 16:00 WBC RBC Hgb Hct MCV MCH MCHC RDW Plt Count Seg Neuts % (Manual) Lymphocytes % (Manual) Seg Neutrophils # Man Lymphocytes # (Manual) Monocytes # (Manual) PT INR D-Dimer ABG pH ABG pO2 ABG HCO3 ABG O2 Saturation ABG Base Excess ABG Hemoglobin Oxyhemoglobin Sodium Potassium Chloride Carbon Dioxide BUN Creatinine Glucose POC Glucose 129 H 125 H 125 H Lactic Acid Calcium Phosphorus Magnesium AST ALT Alkaline Phosphatase Lactate Dehydrogenase Troponin T C-Reactive Protein NT-Pro-B Natriuret Pep Total Protein Albumin LDL Cholesterol Direct Vitamin B12 Vancomycin Trough Crossmatch 12/03/21 12/04/21 12/04/21 23:32 04:00 05:36 WBC RBC Hgb Hct MCV MCH MCHC RDW Plt Count Seg Neuts % (Manual) Lymphocytes % (Manual) Seg Neutrophils # Man Lymphocytes # (Manual) Monocytes # (Manual) PT INR D-Dimer ABG pH ABG pO2 ABG HCO3 ABG O2 Saturation ABG Base Excess ABG Hemoglobin Oxyhemoglobin Sodium Potassium 3.5 L Chloride Carbon Dioxide BUN 26 H Creatinine 0.5 L Glucose 151 H POC Glucose 133 H 142 H Lactic Acid Calcium 8.3 L Phosphorus Magnesium AST ALT Alkaline Phosphatase Lactate Dehydrogenase Troponin T C-Reactive Protein NT-Pro-B Natriuret Pep Total Protein Albumin LDL Cholesterol Direct Vitamin B12 Vancomycin Trough Crossmatch 12/04/21 12/04/21 12/05/21 11:24 15:58 04:36 WBC RBC Hgb Hct MCV MCH MCHC RDW Plt Count Seg Neuts % (Manual) Lymphocytes % (Manual) Seg Neutrophils # Man Lymphocytes # (Manual) Monocytes # (Manual) PT INR D-Dimer ABG pH ABG pO2 ABG HCO3 ABG O2 Saturation ABG Base Excess ABG Hemoglobin Oxyhemoglobin Sodium Potassium Chloride Carbon Dioxide BUN 21 H Creatinine 0.5 L Glucose 119 H POC Glucose 130 H 111 H Lactic Acid Calcium 8.3 L Phosphorus Magnesium AST ALT Alkaline Phosphatase Lactate Dehydrogenase Troponin T C-Reactive Protein NT-Pro-B Natriuret Pep Total Protein Albumin LDL Cholesterol Direct Vitamin B12 Vancomycin Trough Crossmatch 12/05/21 12/05/21 12/05/21 05:15 10:40 11:12 WBC RBC 2.98 L Hgb 8.1 L Hct 24.6 L MCV MCH 27 L MCHC RDW 20.8 H Plt Count Seg Neuts % (Manual) Lymphocytes % (Manual) Seg Neutrophils # Man Lymphocytes # (Manual) Monocytes # (Manual) PT INR D-Dimer ABG pH ABG pO2 ABG HCO3 ABG O2 Saturation ABG Base Excess ABG Hemoglobin Oxyhemoglobin Sodium Potassium Chloride Carbon Dioxide BUN Creatinine Glucose POC Glucose 107 H 110 H Lactic Acid Calcium Phosphorus Magnesium AST ALT Alkaline Phosphatase Lactate Dehydrogenase Troponin T C-Reactive Protein NT-Pro-B Natriuret Pep Total Protein Albumin LDL Cholesterol Direct Vitamin B12 Vancomycin Trough Crossmatch 12/05/21 12/06/21 12/06/21 23:39 04:25 04:25 WBC RBC 2.95 L Hgb 7.9 L Hct 24.7 L MCV MCH 27 L MCHC RDW 20.9 H Plt Count Seg Neuts % (Manual) Lymphocytes % (Manual) Seg Neutrophils # Man Lymphocytes # (Manual) Monocytes # (Manual) PT INR D-Dimer ABG pH ABG pO2 ABG HCO3 ABG O2 Saturation ABG Base Excess ABG Hemoglobin Oxyhemoglobin Sodium Potassium Chloride Carbon Dioxide BUN 22 H Creatinine 0.5 L Glucose 136 H POC Glucose 118 H Lactic Acid Calcium 8.2 L Phosphorus Magnesium AST ALT Alkaline Phosphatase Lactate Dehydrogenase Troponin T C-Reactive Protein NT-Pro-B Natriuret Pep Total Protein Albumin LDL Cholesterol Direct Vitamin B12 Vancomycin Trough Crossmatch 12/06/21 12/06/21 12/07/21 05:28 11:27 04:00 WBC RBC Hgb 7.2 L Hct 21.8 L MCV MCH MCHC RDW Plt Count Seg Neuts % (Manual) Lymphocytes % (Manual) Seg Neutrophils # Man Lymphocytes # (Manual) Monocytes # (Manual) PT INR D-Dimer ABG pH ABG pO2 ABG HCO3 ABG O2 Saturation ABG Base Excess ABG Hemoglobin Oxyhemoglobin Sodium Potassium Chloride Carbon Dioxide BUN Creatinine Glucose POC Glucose 142 H 126 H Lactic Acid Calcium Phosphorus Magnesium AST ALT Alkaline Phosphatase Lactate Dehydrogenase Troponin T C-Reactive Protein NT-Pro-B Natriuret Pep Total Protein Albumin LDL Cholesterol Direct Vitamin B12 Vancomycin Trough Crossmatch 12/07/21 12/07/21 12/07/21 04:00 05:30 11:12 WBC RBC Hgb Hct MCV MCH MCHC RDW Plt Count Seg Neuts % (Manual) Lymphocytes % (Manual) Seg Neutrophils # Man Lymphocytes # (Manual) Monocytes # (Manual) PT INR D-Dimer ABG pH ABG pO2 ABG HCO3 ABG O2 Saturation ABG Base Excess ABG Hemoglobin Oxyhemoglobin Sodium Potassium Chloride Carbon Dioxide BUN 22 H Creatinine Glucose 119 H POC Glucose 121 H 124 H Lactic Acid Calcium 8.0 L Phosphorus Magnesium AST ALT Alkaline Phosphatase Lactate Dehydrogenase Troponin T C-Reactive Protein NT-Pro-B Natriuret Pep Total Protein Albumin LDL Cholesterol Direct Vitamin B12 Vancomycin Trough Crossmatch 12/08/21 12/08/21 12/08/21 04:00 04:00 05:39 WBC RBC 2.81 L Hgb 7.7 L Hct 23.5 L MCV MCH MCHC RDW 21.2 H Plt Count Seg Neuts % (Manual) Lymphocytes % (Manual) Seg Neutrophils # Man Lymphocytes # (Manual) Monocytes # (Manual) PT INR D-Dimer ABG pH ABG pO2 ABG HCO3 ABG O2 Saturation ABG Base Excess ABG Hemoglobin Oxyhemoglobin Sodium 135 L Potassium Chloride Carbon Dioxide BUN 23 H Creatinine Glucose 109 H POC Glucose 112 H Lactic Acid Calcium Phosphorus Magnesium AST ALT Alkaline Phosphatase Lactate Dehydrogenase Troponin T C-Reactive Protein NT-Pro-B Natriuret Pep Total Protein Albumin LDL Cholesterol Direct Vitamin B12 Vancomycin Trough Crossmatch 12/08/21 12/09/21 12/09/21 11:03 04:20 04:20 WBC RBC 2.67 L Hgb 7.6 L Hct 22.1 L MCV MCH MCHC RDW 20.8 H Plt Count Seg Neuts % (Manual) Lymphocytes % (Manual) Seg Neutrophils # Man Lymphocytes # (Manual) Monocytes # (Manual) PT INR D-Dimer ABG pH ABG pO2 ABG HCO3 ABG O2 Saturation ABG Base Excess ABG Hemoglobin Oxyhemoglobin Sodium 135 L Potassium Chloride 97.8 L Carbon Dioxide BUN 26 H Creatinine Glucose 119 H POC Glucose 108 H Lactic Acid Calcium 7.7 L Phosphorus Magnesium AST ALT Alkaline Phosphatase Lactate Dehydrogenase Troponin T C-Reactive Protein NT-Pro-B Natriuret Pep Total Protein Albumin LDL Cholesterol Direct Vitamin B12 Vancomycin Trough Crossmatch 12/09/21 12/10/21 12/10/21 11:26 04:33 11:12 WBC RBC Hgb Hct MCV MCH MCHC RDW Plt Count Seg Neuts % (Manual) Lymphocytes % (Manual) Seg Neutrophils # Man Lymphocytes # (Manual) Monocytes # (Manual) PT INR D-Dimer ABG pH ABG pO2 ABG HCO3 ABG O2 Saturation ABG Base Excess ABG Hemoglobin Oxyhemoglobin Sodium 136 L Potassium Chloride Carbon Dioxide BUN 27 H Creatinine Glucose 117 H POC Glucose 110 H 117 H Lactic Acid Calcium 8.2 L Phosphorus Magnesium AST ALT Alkaline Phosphatase Lactate Dehydrogenase Troponin T C-Reactive Protein NT-Pro-B Natriuret Pep Total Protein Albumin LDL Cholesterol Direct Vitamin B12 Vancomycin Trough Crossmatch 12/10/21 12/10/21 12/11/21 16:02 23:31 04:35 WBC RBC 2.57 L Hgb 7.0 L Hct 21.4 L MCV MCH 27 L MCHC RDW 21.1 H Plt Count Seg Neuts % (Manual) Lymphocytes % (Manual) Seg Neutrophils # Man Lymphocytes # (Manual) Monocytes # (Manual) PT INR D-Dimer ABG pH ABG pO2 ABG HCO3 ABG O2 Saturation ABG Base Excess ABG Hemoglobin Oxyhemoglobin Sodium Potassium Chloride Carbon Dioxide BUN Creatinine Glucose POC Glucose 137 H 111 H Lactic Acid Calcium Phosphorus Magnesium AST ALT Alkaline Phosphatase Lactate Dehydrogenase Troponin T C-Reactive Protein NT-Pro-B Natriuret Pep Total Protein Albumin LDL Cholesterol Direct Vitamin B12 Vancomycin Trough Crossmatch 12/11/21 12/11/21 12/11/21 04:35 12:46 16:07 WBC RBC Hgb Hct MCV MCH MCHC RDW Plt Count Seg Neuts % (Manual) Lymphocytes % (Manual) Seg Neutrophils # Man Lymphocytes # (Manual) Monocytes # (Manual) PT INR D-Dimer ABG pH ABG pO2 ABG HCO3 ABG O2 Saturation ABG Base Excess ABG Hemoglobin Oxyhemoglobin Sodium 136 L Potassium Chloride Carbon Dioxide BUN 27 H Creatinine Glucose 112 H POC Glucose 115 H 111 H Lactic Acid Calcium 7.6 L Phosphorus Magnesium AST ALT Alkaline Phosphatase Lactate Dehydrogenase Troponin T C-Reactive Protein NT-Pro-B Natriuret Pep Total Protein Albumin LDL Cholesterol Direct Vitamin B12 Vancomycin Trough Crossmatch 12/11/21 12/12/21 12/12/21 23:42 04:30 04:30 WBC RBC 2.60 L Hgb 7.1 L Hct 21.5 L MCV MCH 27 L MCHC RDW 20.3 H Plt Count Seg Neuts % (Manual) Lymphocytes % (Manual) Seg Neutrophils # Man Lymphocytes # (Manual) Monocytes # (Manual) PT INR D-Dimer ABG pH ABG pO2 ABG HCO3 ABG O2 Saturation ABG Base Excess ABG Hemoglobin Oxyhemoglobin Sodium 135 L Potassium Chloride 97.9 L Carbon Dioxide BUN 26 H Creatinine 0.5 L Glucose 138 H POC Glucose 115 H Lactic Acid Calcium 8.2 L Phosphorus Magnesium AST ALT Alkaline Phosphatase Lactate Dehydrogenase Troponin T C-Reactive Protein NT-Pro-B Natriuret Pep Total Protein Albumin LDL Cholesterol Direct Vitamin B12 Vancomycin Trough Crossmatch 12/12/21 12/12/21 12/12/21 04:30 05:10 11:51 WBC RBC Hgb Hct MCV MCH MCHC RDW Plt Count Seg Neuts % (Manual) Lymphocytes % (Manual) Seg Neutrophils # Man Lymphocytes # (Manual) Monocytes # (Manual) PT INR D-Dimer ABG pH ABG pO2 ABG HCO3 ABG O2 Saturation ABG Base Excess ABG Hemoglobin Oxyhemoglobin Sodium Potassium Chloride Carbon Dioxide BUN Creatinine Glucose POC Glucose 119 H 119 H Lactic Acid Calcium Phosphorus Magnesium AST ALT Alkaline Phosphatase Lactate Dehydrogenase Troponin T C-Reactive Protein NT-Pro-B Natriuret Pep Total Protein Albumin LDL Cholesterol Direct Vitamin B12 Vancomycin Trough Crossmatch See Detail 12/13/21 12/13/21 12/13/21 00:52 04:00 04:00 WBC RBC 2.73 L Hgb 7.4 L Hct 22.8 L MCV MCH 27 L MCHC RDW 20.5 H Plt Count Seg Neuts % (Manual) Lymphocytes % (Manual) Seg Neutrophils # Man Lymphocytes # (Manual) Monocytes # (Manual) PT INR D-Dimer ABG pH ABG pO2 ABG HCO3 ABG O2 Saturation ABG Base Excess ABG Hemoglobin Oxyhemoglobin Sodium 134 L Potassium Chloride 96.7 L Carbon Dioxide BUN 23 H Creatinine 0.5 L Glucose 131 H POC Glucose 131 H Lactic Acid Calcium 8.1 L Phosphorus Magnesium AST ALT Alkaline Phosphatase Lactate Dehydrogenase Troponin T C-Reactive Protein NT-Pro-B Natriuret Pep Total Protein Albumin LDL Cholesterol Direct Vitamin B12 Vancomycin Trough Crossmatch 12/13/21 12/13/21 12/13/21 05:23 12:11 17:18 WBC RBC Hgb Hct MCV MCH MCHC RDW Plt Count Seg Neuts % (Manual) Lymphocytes % (Manual) Seg Neutrophils # Man Lymphocytes # (Manual) Monocytes # (Manual) PT INR D-Dimer ABG pH ABG pO2 ABG HCO3 ABG O2 Saturation ABG Base Excess ABG Hemoglobin Oxyhemoglobin Sodium Potassium Chloride Carbon Dioxide BUN Creatinine Glucose POC Glucose 121 H 143 H 148 H Lactic Acid Calcium Phosphorus Magnesium AST ALT Alkaline Phosphatase Lactate Dehydrogenase Troponin T C-Reactive Protein NT-Pro-B Natriuret Pep Total Protein Albumin LDL Cholesterol Direct Vitamin B12 Vancomycin Trough Crossmatch 12/14/21 12/14/21 12/14/21 00:54 04:20 04:20 WBC RBC 2.39 L Hgb 6.5 L Hct 20.3 L MCV MCH 27 L MCHC RDW 20.3 H Plt Count Seg Neuts % (Manual) Lymphocytes % (Manual) Seg Neutrophils # Man Lymphocytes # (Manual) Monocytes # (Manual) PT INR D-Dimer ABG pH ABG pO2 ABG HCO3 ABG O2 Saturation ABG Base Excess ABG Hemoglobin Oxyhemoglobin Sodium 130 L Potassium Chloride 93.5 L Carbon Dioxide BUN 25 H Creatinine Glucose 123 H POC Glucose 123 H Lactic Acid Calcium 8.0 L Phosphorus Magnesium AST ALT Alkaline Phosphatase Lactate Dehydrogenase Troponin T C-Reactive Protein NT-Pro-B Natriuret Pep Total Protein Albumin LDL Cholesterol Direct Vitamin B12 Vancomycin Trough Crossmatch 12/14/21 12/14/21 12/14/21 05:06 08:17 10:30 WBC RBC Hgb Hct MCV MCH MCHC RDW Plt Count Seg Neuts % (Manual) Lymphocytes % (Manual) Seg Neutrophils # Man Lymphocytes # (Manual) Monocytes # (Manual) PT INR D-Dimer ABG pH ABG pO2 ABG HCO3 ABG O2 Saturation ABG Base Excess ABG Hemoglobin Oxyhemoglobin Sodium Potassium Chloride Carbon Dioxide BUN Creatinine Glucose POC Glucose 131 H 119 H Lactic Acid Calcium Phosphorus Magnesium AST ALT Alkaline Phosphatase Lactate Dehydrogenase Troponin T C-Reactive Protein NT-Pro-B Natriuret Pep Total Protein Albumin LDL Cholesterol Direct Vitamin B12 Vancomycin Trough Crossmatch See Detail 12/14/21 12/14/21 12/14/21 12:15 16:37 23:27 WBC RBC Hgb Hct MCV MCH MCHC RDW Plt Count Seg Neuts % (Manual) Lymphocytes % (Manual) Seg Neutrophils # Man Lymphocytes # (Manual) Monocytes # (Manual) PT INR D-Dimer ABG pH ABG pO2 ABG HCO3 ABG O2 Saturation ABG Base Excess ABG Hemoglobin Oxyhemoglobin Sodium Potassium Chloride Carbon Dioxide BUN Creatinine Glucose POC Glucose 147 H 141 H 130 H Lactic Acid Calcium Phosphorus Magnesium AST ALT Alkaline Phosphatase Lactate Dehydrogenase Troponin T C-Reactive Protein NT-Pro-B Natriuret Pep Total Protein Albumin LDL Cholesterol Direct Vitamin B12 Vancomycin Trough Crossmatch 12/15/21 12/15/21 12/15/21 05:00 07:00 07:00 WBC 12.3 H RBC 3.27 L Hgb 8.8 L Hct 27.5 L D MCV MCH 27 L MCHC RDW 19.0 H Plt Count Seg Neuts % (Manual) Lymphocytes % (Manual) Seg Neutrophils # Man Lymphocytes # (Manual) Monocytes # (Manual) PT INR D-Dimer ABG pH ABG pO2 ABG HCO3 ABG O2 Saturation ABG Base Excess ABG Hemoglobin Oxyhemoglobin Sodium 134 L Potassium Chloride 95.7 L Carbon Dioxide BUN 28 H Creatinine Glucose 129 H POC Glucose 129 H Lactic Acid Calcium 8.2 L Phosphorus Magnesium AST ALT Alkaline Phosphatase Lactate Dehydrogenase Troponin T C-Reactive Protein NT-Pro-B Natriuret Pep Total Protein Albumin LDL Cholesterol Direct Vitamin B12 Vancomycin Trough Crossmatch 12/15/21 12/15/21 12/15/21 11:18 16:00 23:39 WBC RBC Hgb Hct MCV MCH MCHC RDW Plt Count Seg Neuts % (Manual) Lymphocytes % (Manual) Seg Neutrophils # Man Lymphocytes # (Manual) Monocytes # (Manual) PT INR D-Dimer ABG pH ABG pO2 ABG HCO3 ABG O2 Saturation ABG Base Excess ABG Hemoglobin Oxyhemoglobin Sodium Potassium Chloride Carbon Dioxide BUN Creatinine Glucose POC Glucose 139 H 137 H 146 H Lactic Acid Calcium Phosphorus Magnesium AST ALT Alkaline Phosphatase Lactate Dehydrogenase Troponin T C-Reactive Protein NT-Pro-B Natriuret Pep Total Protein Albumin LDL Cholesterol Direct Vitamin B12 Vancomycin Trough Crossmatch 12/16/21 12/16/21 12/16/21 05:24 10:21 10:21 WBC 15.3 H RBC 3.24 L Hgb 8.9 L Hct 27.7 L MCV MCH MCHC RDW 19.0 H Plt Count Seg Neuts % (Manual) Lymphocytes % (Manual) Seg Neutrophils # Man Lymphocytes # (Manual) Monocytes # (Manual) PT INR D-Dimer ABG pH ABG pO2 ABG HCO3 ABG O2 Saturation ABG Base Excess ABG Hemoglobin Oxyhemoglobin Sodium 131 L Potassium 3.5 L Chloride 92.7 L Carbon Dioxide BUN 36 H Creatinine Glucose 160 H POC Glucose 121 H Lactic Acid Calcium Phosphorus Magnesium 1.60 L AST ALT Alkaline Phosphatase Lactate Dehydrogenase Troponin T C-Reactive Protein NT-Pro-B Natriuret Pep Total Protein Albumin LDL Cholesterol Direct Vitamin B12 Vancomycin Trough Crossmatch 0312/16/21 12/16/21 11:21 18:28 20:52 WBC RBC Hgb Hct MCV MCH MCHC RDW Plt Count Seg Neuts % (Manual) Lymphocytes % (Manual) Seg Neutrophils # Man Lymphocytes # (Manual) Monocytes # (Manual) PT INR D-Dimer ABG pH 7.479 H ABG pO2 79.3 L ABG HCO3 27.3 H ABG O2 Saturation ABG Base Excess 3.6 H ABG Hemoglobin 9.1 L Oxyhemoglobin 94.9 L Sodium Potassium Chloride Carbon Dioxide BUN Creatinine Glucose POC Glucose 153 H 132 H Lactic Acid Calcium Phosphorus Magnesium AST ALT Alkaline Phosphatase Lactate Dehydrogenase Troponin T C-Reactive Protein NT-Pro-B Natriuret Pep Total Protein Albumin LDL Cholesterol Direct Vitamin B12 Vancomycin Trough Crossmatch 12/16/21 12/17/21 12/17/21 23:30 04:25 04:25 WBC 12.3 H RBC 2.16 L Hgb 6.0 L Hct 18.1 L* D MCV MCH MCHC RDW 19.4 H Plt Count Seg Neuts % (Manual) Lymphocytes % (Manual) Seg Neutrophils # Man Lymphocytes # (Manual) Monocytes # (Manual) PT INR D-Dimer ABG pH ABG pO2 ABG HCO3 ABG O2 Saturation ABG Base Excess ABG Hemoglobin Oxyhemoglobin Sodium 132 L Potassium 3.2 L Chloride 112.0 H Carbon Dioxide BUN 32 H Creatinine Glucose 122 H POC Glucose 137 H Lactic Acid Calcium 6.8 L D Phosphorus Magnesium AST ALT Alkaline Phosphatase Lactate Dehydrogenase Troponin T C-Reactive Protein NT-Pro-B Natriuret Pep Total Protein Albumin LDL Cholesterol Direct Vitamin B12 Vancomycin Trough Crossmatch 12/17/21 12/17/21 12/17/21 05:30 11:49 14:45 WBC RBC Hgb 9.7 L D Hct MCV MCH MCHC RDW Plt Count Seg Neuts % (Manual) Lymphocytes % (Manual) Seg Neutrophils # Man Lymphocytes # (Manual) Monocytes # (Manual) PT INR D-Dimer ABG pH ABG pO2 ABG HCO3 ABG O2 Saturation ABG Base Excess ABG Hemoglobin Oxyhemoglobin Sodium Potassium Chloride Carbon Dioxide BUN Creatinine Glucose POC Glucose 137 H 143 H Lactic Acid Calcium Phosphorus Magnesium AST ALT Alkaline Phosphatase Lactate Dehydrogenase Troponin T C-Reactive Protein NT-Pro-B Natriuret Pep Total Protein Albumin LDL Cholesterol Direct Vitamin B12 Vancomycin Trough Crossmatch 12/17/21 12/18/21 12/18/21 17:01 05:04 05:04 WBC 13.8 H RBC 3.44 L Hgb 9.9 L Hct 28.8 L MCV MCH MCHC RDW 18.1 H Plt Count Seg Neuts % (Manual) Lymphocytes % (Manual) Seg Neutrophils # Man Lymphocytes # (Manual) Monocytes # (Manual) PT INR D-Dimer ABG pH ABG pO2 ABG HCO3 ABG O2 Saturation ABG Base Excess ABG Hemoglobin Oxyhemoglobin Sodium 132 L Potassium Chloride 97.4 L Carbon Dioxide BUN 38 H Creatinine Glucose 134 H POC Glucose 132 H Lactic Acid Calcium Phosphorus Magnesium AST ALT Alkaline Phosphatase Lactate Dehydrogenase Troponin T C-Reactive Protein NT-Pro-B Natriuret Pep Total Protein Albumin LDL Cholesterol Direct Vitamin B12 Vancomycin Trough Crossmatch 12/18/21 12/18/21 12/18/21 05:28 10:57 16:27 WBC RBC Hgb Hct MCV MCH MCHC RDW Plt Count Seg Neuts % (Manual) Lymphocytes % (Manual) Seg Neutrophils # Man Lymphocytes # (Manual) Monocytes # (Manual) PT INR D-Dimer ABG pH ABG pO2 ABG HCO3 ABG O2 Saturation ABG Base Excess ABG Hemoglobin Oxyhemoglobin Sodium Potassium Chloride Carbon Dioxide BUN Creatinine Glucose POC Glucose 118 H 132 H 130 H Lactic Acid Calcium Phosphorus Magnesium AST ALT Alkaline Phosphatase Lactate Dehydrogenase Troponin T C-Reactive Protein NT-Pro-B Natriuret Pep Total Protein Albumin LDL Cholesterol Direct Vitamin B12 Vancomycin Trough Crossmatch 12/19/21 12/19/21 12/19/21 00:02 04:41 04:41 WBC 16.0 H RBC 3.45 L Hgb 9.7 L Hct 29.1 L MCV MCH MCHC RDW 17.8 H Plt Count Seg Neuts % (Manual) Lymphocytes % (Manual) Seg Neutrophils # Man Lymphocytes # (Manual) Monocytes # (Manual) PT INR D-Dimer ABG pH ABG pO2 ABG HCO3 ABG O2 Saturation ABG Base Excess ABG Hemoglobin Oxyhemoglobin Sodium 133 L Potassium Chloride 97.9 L Carbon Dioxide BUN 36 H Creatinine 0.5 L Glucose 126 H POC Glucose 127 H Lactic Acid Calcium 8.3 L Phosphorus Magnesium AST ALT Alkaline Phosphatase Lactate Dehydrogenase Troponin T C-Reactive Protein NT-Pro-B Natriuret Pep Total Protein Albumin LDL Cholesterol Direct Vitamin B12 Vancomycin Trough Crossmatch 03/02/0612/19/21 12/19/21 05:26 12:20 16:43 WBC RBC Hgb Hct MCV MCH MCHC RDW Plt Count Seg Neuts % (Manual) Lymphocytes % (Manual) Seg Neutrophils # Man Lymphocytes # (Manual) Monocytes # (Manual) PT INR D-Dimer ABG pH ABG pO2 ABG HCO3 ABG O2 Saturation ABG Base Excess ABG Hemoglobin Oxyhemoglobin Sodium Potassium Chloride Carbon Dioxide BUN Creatinine Glucose POC Glucose 119 H 145 H 126 H Lactic Acid Calcium Phosphorus Magnesium AST ALT Alkaline Phosphatase Lactate Dehydrogenase Troponin T C-Reactive Protein NT-Pro-B Natriuret Pep Total Protein Albumin LDL Cholesterol Direct Vitamin B12 Vancomycin Trough Crossmatch 12/19/21 12/20/21 12/20/21 23:30 04:54 04:54 WBC 12.3 H RBC 3.54 L Hgb 10.0 L Hct 29.5 L MCV MCH MCHC RDW 17.8 H Plt Count Seg Neuts % (Manual) 88.0 H Lymphocytes % (Manual) 6.0 L Seg Neutrophils # Man 10.8 H Lymphocytes # (Manual) 0.7 L Monocytes # (Manual) PT INR D-Dimer ABG pH ABG pO2 ABG HCO3 ABG O2 Saturation ABG Base Excess ABG Hemoglobin Oxyhemoglobin Sodium 131 L Potassium Chloride 96.2 L Carbon Dioxide BUN 36 H Creatinine 0.5 L Glucose 130 H POC Glucose 117 H Lactic Acid Calcium Phosphorus Magnesium AST ALT Alkaline Phosphatase Lactate Dehydrogenase Troponin T C-Reactive Protein NT-Pro-B Natriuret Pep Total Protein Albumin LDL Cholesterol Direct Vitamin B12 Vancomycin Trough Crossmatch 12/20/21 12/20/21 12/20/21 05:20 11:51 17:30 WBC RBC Hgb Hct MCV MCH MCHC RDW Plt Count Seg Neuts % (Manual) Lymphocytes % (Manual) Seg Neutrophils # Man Lymphocytes # (Manual) Monocytes # (Manual) PT INR D-Dimer ABG pH ABG pO2 ABG HCO3 ABG O2 Saturation ABG Base Excess ABG Hemoglobin Oxyhemoglobin Sodium Potassium Chloride Carbon Dioxide BUN Creatinine Glucose POC Glucose 126 H 119 H 127 H Lactic Acid Calcium Phosphorus Magnesium AST ALT Alkaline Phosphatase Lactate Dehydrogenase Troponin T C-Reactive Protein NT-Pro-B Natriuret Pep Total Protein Albumin LDL Cholesterol Direct Vitamin B12 Vancomycin Trough Crossmatch 12/21/21 12/21/21 12/21/21 00:45 04:21 04:21 WBC RBC 3.47 L Hgb 9.4 L Hct 29.2 L MCV MCH 27 L MCHC RDW 18.1 H Plt Count Seg Neuts % (Manual) Lymphocytes % (Manual) Seg Neutrophils # Man Lymphocytes # (Manual) Monocytes # (Manual) PT INR D-Dimer ABG pH ABG pO2 ABG HCO3 ABG O2 Saturation ABG Base Excess ABG Hemoglobin Oxyhemoglobin Sodium 134 L Potassium Chloride Carbon Dioxide BUN 35 H Creatinine 0.5 L Glucose 122 H POC Glucose 125 H Lactic Acid Calcium 8.2 L Phosphorus Magnesium AST ALT Alkaline Phosphatase Lactate Dehydrogenase Troponin T C-Reactive Protein NT-Pro-B Natriuret Pep Total Protein Albumin LDL Cholesterol Direct Vitamin B12 Vancomycin Trough Crossmatch 12/21/21 12/21/21 12/21/21 05:38 11:29 16:16 WBC RBC Hgb Hct MCV MCH MCHC RDW Plt Count Seg Neuts % (Manual) Lymphocytes % (Manual) Seg Neutrophils # Man Lymphocytes # (Manual) Monocytes # (Manual) PT INR D-Dimer ABG pH ABG pO2 ABG HCO3 ABG O2 Saturation ABG Base Excess ABG Hemoglobin Oxyhemoglobin Sodium Potassium Chloride Carbon Dioxide BUN Creatinine Glucose POC Glucose 127 H 121 H 113 H Lactic Acid Calcium Phosphorus Magnesium AST ALT Alkaline Phosphatase Lactate Dehydrogenase Troponin T C-Reactive Protein NT-Pro-B Natriuret Pep Total Protein Albumin LDL Cholesterol Direct Vitamin B12 Vancomycin Trough Crossmatch 12/22/21 12/22/21 12/23/21 04:58 04:58 06:40 WBC 11.5 H RBC 3.43 L Hgb 9.8 L Hct 28.7 L MCV MCH MCHC RDW 18.5 H 17.9 H Plt Count Seg Neuts % (Manual) Lymphocytes % (Manual) Seg Neutrophils # Man Lymphocytes # (Manual) Monocytes # (Manual) PT INR D-Dimer ABG pH ABG pO2 ABG HCO3 ABG O2 Saturation ABG Base Excess ABG Hemoglobin Oxyhemoglobin Sodium 130 L Potassium Chloride 97.8 L Carbon Dioxide BUN 31 H Creatinine 0.5 L Glucose 122 H POC Glucose Lactic Acid Calcium 7.9 L Phosphorus Magnesium AST ALT Alkaline Phosphatase Lactate Dehydrogenase Troponin T C-Reactive Protein NT-Pro-B Natriuret Pep Total Protein Albumin LDL Cholesterol Direct Vitamin B12 Vancomycin Trough Crossmatch 12/23/21 12/23/21 12/24/21 06:40 23:25 04:24 WBC 11.7 H RBC Hgb 9.8 L Hct MCV MCH 26 L MCHC RDW 18.1 H Plt Count Seg Neuts % (Manual) Lymphocytes % (Manual) Seg Neutrophils # Man Lymphocytes # (Manual) Monocytes # (Manual) PT INR D-Dimer ABG pH ABG pO2 ABG HCO3 ABG O2 Saturation ABG Base Excess ABG Hemoglobin Oxyhemoglobin Sodium 136 L Potassium Chloride Carbon Dioxide BUN 27 H Creatinine 0.4 L Glucose 107 H POC Glucose 110 H Lactic Acid Calcium 8.1 L Phosphorus Magnesium AST ALT Alkaline Phosphatase Lactate Dehydrogenase Troponin T C-Reactive Protein NT-Pro-B Natriuret Pep Total Protein Albumin LDL Cholesterol Direct Vitamin B12 Vancomycin Trough Crossmatch 12/24/21 12/24/21 12/24/21 04:24 11:08 15:45 WBC RBC Hgb Hct MCV MCH MCHC RDW Plt Count Seg Neuts % (Manual) Lymphocytes % (Manual) Seg Neutrophils # Man Lymphocytes # (Manual) Monocytes # (Manual) PT INR D-Dimer ABG pH ABG pO2 ABG HCO3 ABG O2 Saturation ABG Base Excess ABG Hemoglobin Oxyhemoglobin Sodium 132 L Potassium Chloride Carbon Dioxide BUN 27 H Creatinine 0.3 L Glucose 108 H POC Glucose 116 H 107 H Lactic Acid Calcium Phosphorus Magnesium AST ALT Alkaline Phosphatase Lactate Dehydrogenase Troponin T C-Reactive Protein NT-Pro-B Natriuret Pep Total Protein Albumin LDL Cholesterol Direct Vitamin B12 Vancomycin Trough Crossmatch 12/24/21 12/25/21 12/25/21 23:43 05:29 11:48 WBC RBC Hgb Hct MCV MCH MCHC RDW Plt Count Seg Neuts % (Manual) Lymphocytes % (Manual) Seg Neutrophils # Man Lymphocytes # (Manual) Monocytes # (Manual) PT INR D-Dimer ABG pH ABG pO2 ABG HCO3 ABG O2 Saturation ABG Base Excess ABG Hemoglobin Oxyhemoglobin Sodium Potassium Chloride Carbon Dioxide BUN Creatinine Glucose POC Glucose 123 H 107 H 119 H Lactic Acid Calcium Phosphorus Magnesium AST ALT Alkaline Phosphatase Lactate Dehydrogenase Troponin T C-Reactive Protein NT-Pro-B Natriuret Pep Total Protein Albumin LDL Cholesterol Direct Vitamin B12 Vancomycin Trough Crossmatch 12/26/21 12/26/21 12/26/21 00:06 05:56 07:51 WBC 11.4 H RBC 3.40 L Hgb 9.3 L Hct 28.3 L MCV MCH 27 L MCHC RDW 18.2 H Plt Count Seg Neuts % (Manual) Lymphocytes % (Manual) Seg Neutrophils # Man Lymphocytes # (Manual) Monocytes # (Manual) PT INR D-Dimer ABG pH ABG pO2 ABG HCO3 ABG O2 Saturation ABG Base Excess ABG Hemoglobin Oxyhemoglobin Sodium Potassium Chloride Carbon Dioxide BUN Creatinine Glucose POC Glucose 133 H 107 H Lactic Acid Calcium Phosphorus Magnesium AST ALT Alkaline Phosphatase Lactate Dehydrogenase Troponin T C-Reactive Protein NT-Pro-B Natriuret Pep Total Protein Albumin LDL Cholesterol Direct Vitamin B12 Vancomycin Trough Crossmatch 12/26/21 12/26/21 12/26/21 07:51 11:43 17:06 WBC RBC Hgb Hct MCV MCH MCHC RDW Plt Count Seg Neuts % (Manual) Lymphocytes % (Manual) Seg Neutrophils # Man Lymphocytes # (Manual) Monocytes # (Manual) PT INR D-Dimer ABG pH ABG pO2 ABG HCO3 ABG O2 Saturation ABG Base Excess ABG Hemoglobin Oxyhemoglobin Sodium 136 L Potassium Chloride Carbon Dioxide BUN 25 H Creatinine 0.3 L Glucose 131 H POC Glucose 119 H 128 H Lactic Acid Calcium Phosphorus Magnesium AST ALT Alkaline Phosphatase Lactate Dehydrogenase Troponin T C-Reactive Protein NT-Pro-B Natriuret Pep Total Protein Albumin LDL Cholesterol Direct Vitamin B12 Vancomycin Trough Crossmatch 12/28/21 12/28/21 12/29/21 09:05 09:05 04:40 WBC RBC 3.19 L Hgb 8.9 L Hct 26.4 L MCV MCH 27 L MCHC RDW 18.4 H 17.9 H Plt Count Seg Neuts % (Manual) Lymphocytes % (Manual) Seg Neutrophils # Man Lymphocytes # (Manual) Monocytes # (Manual) PT INR D-Dimer ABG pH ABG pO2 ABG HCO3 ABG O2 Saturation ABG Base Excess ABG Hemoglobin Oxyhemoglobin Sodium 135 L Potassium Chloride 97.8 L Carbon Dioxide BUN 18 H Creatinine 0.3 L Glucose POC Glucose Lactic Acid Calcium Phosphorus Magnesium AST ALT Alkaline Phosphatase Lactate Dehydrogenase Troponin T C-Reactive Protein NT-Pro-B Natriuret Pep Total Protein Albumin LDL Cholesterol Direct Vitamin B12 Vancomycin Trough Crossmatch 12/29/21 12/29/21 12/30/21 04:40 12:47 04:05 WBC RBC 3.29 L Hgb 8.7 L Hct 27.6 L MCV MCH 27 L MCHC RDW 17.6 H Plt Count Seg Neuts % (Manual) Lymphocytes % (Manual) Seg Neutrophils # Man Lymphocytes # (Manual) Monocytes # (Manual) PT INR D-Dimer ABG pH ABG pO2 ABG HCO3 ABG O2 Saturation ABG Base Excess ABG Hemoglobin Oxyhemoglobin Sodium 136 L Potassium Chloride Carbon Dioxide BUN Creatinine 0.3 L Glucose POC Glucose 67 L Lactic Acid Calcium 8.3 L Phosphorus Magnesium AST ALT Alkaline Phosphatase Lactate Dehydrogenase Troponin T C-Reactive Protein NT-Pro-B Natriuret Pep Total Protein Albumin LDL Cholesterol Direct Vitamin B12 Vancomycin Trough Crossmatch 12/30/21 12/31/21 12/31/21 04:05 00:07 04:00 WBC RBC 3.05 L Hgb 8.5 L Hct 25.5 L MCV MCH MCHC RDW 18.2 H Plt Count Seg Neuts % (Manual) Lymphocytes % (Manual) Seg Neutrophils # Man Lymphocytes # (Manual) Monocytes # (Manual) PT INR D-Dimer ABG pH ABG pO2 ABG HCO3 ABG O2 Saturation ABG Base Excess ABG Hemoglobin Oxyhemoglobin Sodium 136 L Potassium 3.5 L Chloride Carbon Dioxide BUN Creatinine 0.4 L Glucose POC Glucose 139 H Lactic Acid Calcium Phosphorus Magnesium 1.50 L AST ALT Alkaline Phosphatase Lactate Dehydrogenase Troponin T C-Reactive Protein NT-Pro-B Natriuret Pep Total Protein Albumin LDL Cholesterol Direct Vitamin B12 Vancomycin Trough Crossmatch 12/31/21 12/31/21 12/31/21 04:00 04:52 11:23 WBC RBC Hgb Hct MCV MCH MCHC RDW Plt Count Seg Neuts % (Manual) Lymphocytes % (Manual) Seg Neutrophils # Man Lymphocytes # (Manual) Monocytes # (Manual) PT INR D-Dimer ABG pH ABG pO2 ABG HCO3 ABG O2 Saturation ABG Base Excess ABG Hemoglobin Oxyhemoglobin Sodium Potassium Chloride Carbon Dioxide BUN 19 H Creatinine 0.4 L Glucose 116 H POC Glucose 121 H 116 H Lactic Acid Calcium Phosphorus Magnesium AST ALT Alkaline Phosphatase Lactate Dehydrogenase Troponin T C-Reactive Protein NT-Pro-B Natriuret Pep Total Protein Albumin LDL Cholesterol Direct Vitamin B12 Vancomycin Trough Crossmatch 12/31/21 01/01/22 01/01/22 17:42 04:31 04:31 WBC RBC 2.83 L Hgb 7.7 L Hct 23.2 L MCV MCH 27 L MCHC RDW 18.3 H Plt Count Seg Neuts % (Manual) Lymphocytes % (Manual) Seg Neutrophils # Man Lymphocytes # (Manual) Monocytes # (Manual) PT INR D-Dimer ABG pH ABG pO2 ABG HCO3 ABG O2 Saturation ABG Base Excess ABG Hemoglobin Oxyhemoglobin Sodium 135 L Potassium Chloride 97.7 L Carbon Dioxide BUN 21 H Creatinine 0.5 L Glucose 127 H POC Glucose 107 H Lactic Acid Calcium 8.0 L Phosphorus Magnesium AST ALT Alkaline Phosphatase Lactate Dehydrogenase Troponin T C-Reactive Protein NT-Pro-B Natriuret Pep Total Protein Albumin LDL Cholesterol Direct Vitamin B12 Vancomycin Trough Crossmatch 01/01/22 01/01/22 01/01/22 05:24 11:25 18:11 WBC RBC Hgb Hct MCV MCH MCHC RDW Plt Count Seg Neuts % (Manual) Lymphocytes % (Manual) Seg Neutrophils # Man Lymphocytes # (Manual) Monocytes # (Manual) PT INR D-Dimer ABG pH ABG pO2 ABG HCO3 ABG O2 Saturation ABG Base Excess ABG Hemoglobin Oxyhemoglobin Sodium Potassium Chloride Carbon Dioxide BUN Creatinine Glucose POC Glucose 124 H 140 H 144 H Lactic Acid Calcium Phosphorus Magnesium AST ALT Alkaline Phosphatase Lactate Dehydrogenase Troponin T C-Reactive Protein NT-Pro-B Natriuret Pep Total Protein Albumin LDL Cholesterol Direct Vitamin B12 Vancomycin Trough Crossmatch 01/01/22 01/02/22 01/02/22 23:26 04:01 04:01 WBC RBC 2.57 L Hgb 7.1 L Hct 21.5 L MCV MCH MCHC RDW 18.1 H Plt Count Seg Neuts % (Manual) Lymphocytes % (Manual) Seg Neutrophils # Man Lymphocytes # (Manual) Monocytes # (Manual) PT INR D-Dimer ABG pH ABG pO2 ABG HCO3 ABG O2 Saturation ABG Base Excess ABG Hemoglobin Oxyhemoglobin Sodium 131 L Potassium 3.5 L Chloride 94.8 L Carbon Dioxide BUN 27 H Creatinine Glucose 121 H POC Glucose 121 H Lactic Acid Calcium Phosphorus Magnesium AST ALT Alkaline Phosphatase Lactate Dehydrogenase Troponin T C-Reactive Protein NT-Pro-B Natriuret Pep Total Protein Albumin LDL Cholesterol Direct Vitamin B12 Vancomycin Trough Crossmatch 01/02/22 01/02/22 01/02/22 05:30 11:10 16:08 WBC RBC Hgb Hct MCV MCH MCHC RDW Plt Count Seg Neuts % (Manual) Lymphocytes % (Manual) Seg Neutrophils # Man Lymphocytes # (Manual) Monocytes # (Manual) PT INR D-Dimer ABG pH ABG pO2 ABG HCO3 ABG O2 Saturation ABG Base Excess ABG Hemoglobin Oxyhemoglobin Sodium Potassium Chloride Carbon Dioxide BUN Creatinine Glucose POC Glucose 124 H 117 H 130 H Lactic Acid Calcium Phosphorus Magnesium AST ALT Alkaline Phosphatase Lactate Dehydrogenase Troponin T C-Reactive Protein NT-Pro-B Natriuret Pep Total Protein Albumin LDL Cholesterol Direct Vitamin B12 Vancomycin Trough Crossmatch 01/02/22 01/02/22 01/03/22 17:30 23:26 04:53 WBC RBC 2.82 L Hgb 7.7 L Hct 23.4 L MCV MCH 27 L MCHC RDW 18.0 H Plt Count Seg Neuts % (Manual) Lymphocytes % (Manual) Seg Neutrophils # Man Lymphocytes # (Manual) Monocytes # (Manual) PT INR D-Dimer ABG pH ABG pO2 ABG HCO3 ABG O2 Saturation ABG Base Excess ABG Hemoglobin Oxyhemoglobin Sodium Potassium Chloride Carbon Dioxide BUN Creatinine Glucose POC Glucose 114 H Lactic Acid Calcium Phosphorus Magnesium AST ALT Alkaline Phosphatase Lactate Dehydrogenase Troponin T C-Reactive Protein NT-Pro-B Natriuret Pep Total Protein Albumin LDL Cholesterol Direct Vitamin B12 Vancomycin Trough 22.8 H Crossmatch 01/03/22 01/03/22 04:53 06:23 WBC RBC Hgb Hct MCV MCH MCHC RDW Plt Count Seg Neuts % (Manual) Lymphocytes % (Manual) Seg Neutrophils # Man Lymphocytes # (Manual) Monocytes # (Manual) PT INR D-Dimer ABG pH ABG pO2 ABG HCO3 ABG O2 Saturation ABG Base Excess ABG Hemoglobin Oxyhemoglobin Sodium 133 L Potassium Chloride 96.2 L Carbon Dioxide BUN 30 H Creatinine Glucose 107 H POC Glucose 122 H Lactic Acid Calcium Phosphorus Magnesium AST ALT Alkaline Phosphatase Lactate Dehydrogenase Troponin T C-Reactive Protein NT-Pro-B Natriuret Pep Total Protein Albumin LDL Cholesterol Direct Vitamin B12 Vancomycin Trough Crossmatch Allied health notes reviewed: RT
[2022-01-03] MEDS: ALPRAZolam 0.25 MG TAB FEEDTUBE PRN (19:51)
[2022-01-03] MEDS: traZODone 50 MG TAB PO SCH (22:20)
[2022-01-03] MEDS: MELATONIN 5 MG TAB PO SCH (22:23)
[2022-01-03] MEDS: PRAVASTATIN 20 MG TAB FEEDTUBE SCH (22:30)
[2022-01-04] MEDS: SUCRALFATE 1 GM/10 ML ORAL LIQD FEEDTUBE SCH ×3 (05:20→17:32)
[2022-01-04] MEDS: METOCLOPRAMIDE 10 MG/2 ML INJ IV SCH ×3 (05:21→22:16)
[2022-01-04] MEDS: LEVOTHYROXINE 125 MCG TAB FEEDTUBE SCH (05:21)
[2022-01-04 06:21] LABS: Blood Urea Nitrogen 30 mg/dL (7-17); Hemolysis Index 3
[2022-01-04 06:37] LABS: BUN/Creatinine Ratio 50
[2022-01-04] MEDS: GABAPENTIN 100 MG CAP FEEDTUBE SCH (09:12)
[2022-01-04] MEDS: METOPROLOL TARTRATE 25 MG TAB FEEDTUBE SCH ×2 (09:12→22:15)
[2022-01-04] MEDS: busPIRone 5 MG TAB FEEDTUBE SCH (09:12)
[2022-01-04] MEDS: HYDROcodone/ACETAMINOPHEN 10-325MG TAB FEEDTUBE SCH ×3 (09:13→20:15)
[2022-01-04] MEDS: MIDODRINE 5 MG TAB FEEDTUBE SCH ×3 (09:13→17:32)
[2022-01-04] MEDS: QUEtiapine 25 MG TAB FEEDTUBE SCH (09:13)
[2022-01-04] MEDS: SPIRONOLACTONE 25 MG TAB FEEDTUBE SCH (09:13)
[2022-01-04] MEDS: DOCUSATE SODIUM 100 MG/10 ML ORAL LIQD FEEDTUBE SCH (09:13)
[2022-01-04] MEDS: POLYETHYLENE GLYCOL 3350 17 GM POWDER FEEDTUBE SCH (09:14)
[2022-01-04] MEDS: SENNOSIDES ORAL LIQD 8.8 MG/5 ML ORAL LIQD FEEDTUBE SCH (09:14)
[2022-01-04] MEDS: VANCOMYCIN/NS 1 GM/250 ML 1 GM/250 ML BAG IV SCH (09:14)
[2022-01-04] MEDS: LANSOPRAZOLE 30 MG SOLUTAB FEEDTUBE SCH (09:15)
[2022-01-04] MEDS ORDERED: MAGNESIUM SULFATE 4 GM/100 ML BAG IV ONE (10:00)
--- NOTE | 2022-01-04 12:20 | Progress Note ---
<LONNIE MAURICE - Last Filed: 01/04/22 17:16> Assessment and Plan Assessment and plan: This is a 81-year-old female with known history of diabetes mellitus, hypertension, PPM, and arthritis admitted for sepsis and acute hypoxia respiratory failure 2/2 bilateral pneumonia requiring intubation and ventilatory support Hospital Course to date: ------ 12/04: Increased agitation and anxiety overnight, remains on buspar and seroquel, trazadone added to promote rest. Patient is now working with PT, keep patient engage and awake during the day so she can rest at night. No BM for over 5 days, BR was adjusted. Patient did not tolerate PST again yesterday, continue daily PST as tolerated. Continue to titrate pressor for MAP above 65. Pending possible LTAC placement, case management to arrange. 12/05: Still not getting much rest overnight, will add melatonin for sleep. Continue to engage patient during the day and promote rest at night. TF was held due to concern for possible bleeding, H&H remains stable and stools normal this am. Resume TF and continue PPI and carafate. Remains on low dose levophed, titrate as tolerated. Continue daily PST. Possible LTAC placement, awaiting approval. 12/06: [facility] overnight. Patient rested overnight. Continue supportive measures. Daily PST as tolerated. Awaiting possible LTAC placement 12/07: [facility] overnight. Plan for Tpiece trial today. Continue current supportive measures. Possible LTAC placement 12/08: Patient placed on pressure support trial again today, started on Xanax, no acute events reported overnight. Awaiting insurance approval for LTAC. 12/09: Levophed discontinued, LTAC transfer denied, started on midodrine and Lasix, ultrasound chest pending, started on Xanax 0.[address] De León updated family at bedside today. Started on Dilaudid every 3 hours as needed. 12/10: Patient placed on CPAP trial this morning, no acute events reported overnight. Will order ultrasound-guided thoracentesis. 12/11: Patient had a thoracentesis today, will decrease Xanax dosage and continue midodrine and diuresing. Patient failed CPAP today. 12/12: Patient not tolerate CPAP trials today, no acute events reported overnight 12/13: No acute events overnight. continue PSV trials as tolerated. Daughter updated at bedside 12/14: Patient noted to be anemic today, worsened gastric occult. Patient seems to be oversedated therefore Xanax changed to as needed and fentanyl patch discontinued. We will continue to monitor hyponatremia. 12/15: [facility] overnight. s/p 1unit of PRBCs, H&H stable this am, no signs of any active bleeding. Continue daily PST as tolerated. Awaiting placement. 12/16: Hypertensive this am, Midodrine decreased. Continue daily PST. [facility] overnight 12/17: Patient Hgb dropped to 6 this am, no s/s of any active bleeding, VSS. Patient received 1unit of PRBC, will continue to trend H&H. Patient was pancul tured and back on IV Abx due to persistent fevers yesterday. ID is also back on the case. Continue IV Abx per ID and f/u on cultures data for sensitivity. Patient also failed PST yesterday, continue daily PST as tolerated. Electrolytes repleted, repeat labs in the am. 12/18: Patient blood cultures is growing GPC 4 out 4 bottles. PICC line D/Sara, patient is already on IV Abx-cefepine and Vanc and ID is following. Patient remains hemodynamically stable. Daily PST as tolerated adn PRN Benzo for anx iety. 12/19: [facility] overnight. Culture data noted, continue IV Abx per ID. Orders placed for repeat Bculture. Sánchez D/C overnight, patient is voiding. Check bladder scan as needed for retention. Patient failed PST again today. Continue daily PST as tolerated. 12/20: Fevers improved, Cultures +MRSA, on Vanco per ID. Repeat 2D Echo to r/o endocarditis. Patient continue to fail PST, PEEP increased to 8 today. Continue pulmonary hygiene and vent wean per [facility]. Sodium tab added for hyponatremia. 12/21: Remains afebrile, repeat B.culture with NGTD, 2D echo noted with no obvious vegetation noted. Continue IV Vanc per ID. Hyponatremia improved. Tolerating PST this am, Continue daily PST. 12/22: Patient on pressure support trial for approximately 4 hours today, midodrine dosage increased due to hypotension. Lasix discontinued. 12/23: Started on a.m. Seroquel dose, midodrine increased to 10 mg 3 times daily, 500 mL normal saline bolus. 12/24: Seroquel dose changed (25 every morning, 75 nightly). updated at bedside by Dr. De León. CPAP trials as tolerated. Continue vancomycin. Awaiting placement. 12/25: Continue CPAP as tolerated, added gasx for distention. Continue supportive care 12/26: Patient failed PSV this AM. no acute events overnight. 12/27: GI re-consulted due to abdominal distention. No acute events reported overnight. CPAP trials as tolerated. Dr. Mckenna will get a KUB to rule out possible obstruction. 12/28: KUB shows no acute process, CXR shows improvement. CPAP trials as tolerated. 12/29: CT Abd/pelvis noted with moderated bilateral pleural effusion, anasarca, and ascites. X1dose of IV lasix administered. D/w CCM and GI orders plan for thora and paracentesis by IR. Will also start patient on aldactone Qday. Patient is tolerating trickle feeds this am, continue TF and BR adjusted for constipation. Plan of care was discussed with patient and her at the bedside. Thorough discussion on patient's overall poor prognosis and that patient will most likely be vent dependent. Patient's voiced understanding of the info given. All questions and concerns were voiced at this time. 12/30: Patient did not tolerate thoracentesis in IR yesterday due to change in LOC and hypoxia. Plan for possible bedside thoracentesis and paracentesis today. Patient remains afebrile. Patient required director long term care IV abx therapy [id number] left, orders placed for a PICC. Patient remains with sign. Piting edema and anasarca, X1 does of PO Zaroxolyn and 2m of IV lasix given. Electrolytes repleted, repeat lab in the am. 12/31: Tolerated Rt. thoracentesis at the bedside yesterday, 1.4L removed. Patient remains stable on the vent this am, tolerating CPAP today PS dropped to 14. Recent CXR noted, left pleural effusion improved. Patient tolerated gentle diurese yesterday, good urine output reported. D/w CCM hold off on Left thoracentesis today, continue PO Aldactone and additonal zaroxolyn and IV lasix again today. F/u CXR in the am. 01/01: This am CXR noted with worsening bilateral pleural effusion. Patient is stable and tolerating PST this am, however PS is back up to 20 this am. BP is soft this am will hold off on IV diuretic for today, continue PO Aldactone. D/w CCM continue gentle diurese as tolerated. Will reassess in the am. Continue support care. 01/02: [facility] overnight. VSS this am, tolerating PST. X1dose of 25% IV Albumin following with 20mg IV Lasix today. Continue daily gentle diurese if hemodynamics tolerate it. Continue to monitor and replace electrolytes as needed 01/03: Abdominal distention and vomiting overnight, 600cc of gastric residual rem ozzy, TF held. KUB with no acute abnormality. Reglan added X2days, resume TF, and continue BR. Patient is tolerating PST this am. Hemodynamics remains stable, will continue gentle IV diurese. close monitoring to renal function and electrolytes. 01/04: Tolerating TF, nausea/vomiting resolved, last BM on 01/03. Continue Reglan X1 more day. Patient continue to tolerate PST. D/W CCM continue gentle diurese. F/U CXR in the am. Possible US thoracentesis tomorrow. Assessment and Plan #MRSA Bacteremia #MRSA Pneumonia #Septic Shock POA-resolved - Presented with fevers, leukocytosis, and hypotension - COVID PCR negative - 11/04 Bcult with 3/4 group B strep bacteremia, [id number] Bculture NGTD - 11/04 2D Echo with no evidence of vegetation - New fevers on 12/16- Blood and sputum culture with MRSA - 12/16- UA is unremarkable - 12/18 repeat B.culture with NGTD - 12/19 Repeat 2D echo- with no obvious vegetation noted. EF 35-40% - ID on consult, appreciate recommendations - Continue IV Abx- Vanco per ID recs. termite control service representative therapy, need a PICC - Trend CBC #Acute Hypoxic Respiratory Failure 2/ #MRSA Pneumonia #Bilateral Pleural Effusion #Right Pneumothorax-resolved - COVID PCR negative - CXR shows Bilateral opacities, may be volume overloaded - CCM consulted, appreciate recommendations - Intubated on 11/06, ETT exchanged on 11/11 - 11/11 Bronchoscopy--Complicated by spontaneous pneumothorax - 11/11 S/p chest tube placement for right pneumothorax, removed by patient on 11/15 - 11/26 s/p Tracheostomy and PEGtube placement - 12/11 US thoracentesis due to moderate pleural effusion-1L removed - 12/29 US thoracentesis- 1.4L removed - This am Vent Setting:CPAP-30%,8 PS-20 - Continue Nebs treatment - Continue daily PST as tolerated - VAP bundle addressed - Aspiration precaution HOB above 30 - PRN ABG and CXR per CCM - Continue SPO2 monitoring for SPO2 goal above 92% - Daily assessment for gentle diurese #CHF- EF 30-35% with PPM #Hypotension-resolved #Septic Kristian-resolved - SR on the monitor, HR 70-90s - 11/04 Echo-EF 30-35% - 12/19 Repeat EF 35-40% - Continue beta-charleen - Not on aspirin due to allergy - Statins resumed - Continue blood pressure monitor per protocol - Maintain MAP above 65 - Cardiology signed off #Acute Microcytic Anemia #Acute Blood Loss-resolved #Acute GI Bleed-resolved - s/p a total of 7units of PRBCs since admit - 11/18 EGD- Large cratered ulcer in the posterior duodenal bulb about 2 cm in diameter. Visible vessel present. Mild active oozing from the ulcer bed. A total of 3 injections were performed around the ulcer for a total of 2.5 cc of dilute epinephrine and hemostasis was obtained.--> See full report - GI signed off - Stool occult still positive - H&H stable - Continue PPI and Carafate - Continue to trend CBC - Transfuse for H&H less than 7 - Hold AC for now #Hyponatremia #Hypokalemia - Gentle diurese - Strict intake and output - Continue to monitor and replace electrolytes as needed - Trend BMP,mag, & phosp #Urinary Retention-resolved - Sánchez reinserted on 11/19 for retention - Sánchez D/sara, patient is voiding - Bladder scan with no residual #Acute DVT in RLE - BLE doppler + Acute DVT in the right external iliac vein, common femoral vein, and superior aspect of femoral vein - Was on Therapeutic Lovenox- held to due GI Bleed - 11/17 s/p IVC filter placement by Vascular Surg #Agitation/Anxiety #Chronic Pain #Acute Encephalopathy-Resolved - Awake and following commands - Continue Buspar and seroquel - PRN Xanax for anxiety - CT head and EEG noted - Neurology consulted - PRN analgesia for pain management #Transaminitis/Shock Liver-resolved - Probably due to bacteria/spetic shock - Continue to Trend LFTs #Endo: h/o DM and hypothyroidism - Continue home Synthroid - Accu-Cheks every 6hrs - Avoid hypoglycemia The high probability of a clinically significant, sudden or life threatening deterioration of the [multi] system(s) required my full and direct attention, intervention and personal management. The aggregate critical care time was [35] minutes. This time is in addition to time spent performing reported procedures but includes the following: [x] Data Review and interpretation [x] Patient assessment and monitoring of vital signs [x] Documentation [x] Medication orders and management Disposition Plan: ICU Total Time Spent with Patient (Minutes): 35 History Interval history: Patient seen and examined at the bedside. Remains stable on the vent, AAO, following commands. Tolerating PST this am. No nausea/vomiting overnight. Patient is tolerating TF. [facility] overnight. Hospitalist Physical - Constitutional Vitals: Temp Pulse Resp BP Pulse Ox 97.2 F L 61 15 143/65 100 01/04/22 08:00 01/04/22 11:58 01/04/22 11:58 01/04/22 11:58 01/04/22 11:58 General appearance: Present: no acute distress, other (Trach and on the vent) - EENT Eyes: Present: PERRL ENT: hearing intact - Neck Neck: Present: normal ROM - Respiratory Respiratory effort: normal Respiratory: bilateral: rhonchi - Cardiovascular Rhythm: regular Heart Sounds: Present: S1 & S2 - Extremities Extremities: no ischemia, pulses intact, pulses symmetrical Extremity abnormal: edema - Peripheral Assessment Generalized Edema Type: Non-pitting Edema Degree: 2+ Capillary Refill: < 3 seconds Skin Temperature: Warm Peripheral Pulses: within normal limits - Abdominal General gastrointestinal: soft, non-distended, normal bowel sounds - Integumentary Integumentary: Present: warm, dry - Psychiatric Psychiatric: appropriate mood/affect, cooperative - Neurologic Neurologic: moves all extremities - Allied Health Allied health notes reviewed: nursing HEART Score - HEART Score Troponin: Troponin T 0.045 ng/mL (0.00-0.029) H 11/29/21 20:15 Results - Labs CBC & Chem 7: 01/03/22 04:53 01/04/22 04:00 Labs: Laboratory Last Values WBC 10.6 K/mm3 (4.5-11.0) 01/03/22 04:53 RBC 2.82 M/mm3 (3.65-5.03) L 01/03/22 04:53 Hgb 7.7 gm/dl (10.1-14.3) L 01/03/22 04:53 Hct 23.4 % (30.3-42.9) L 01/03/22 04:53 MCV 83 fl (79-97) 01/03/22 04:53 MCH 27 pg (28-32) L 01/03/22 04:53 MCHC 33 % (30-34) 01/03/22 04:53 RDW 18.0 % (13.2-15.2) H 01/03/22 04:53 Plt Count 195 K/mm3 (140-440) 01/03/22 04:53 Add Manual Diff Complete 12/20/21 04:54 Total Counted 100 12/20/21 04:54 Seg Neutrophils % Snaker Tractor Driver 11/06/21 15:50 Seg Neuts % (Manual) 88.0 % (40.0-70.0) H 12/20/21 04:54 Band Neutrophils % 0 % 12/20/21 04:54 Lymphocytes % (Manual) 6.0 % (13.4-35.0) L 12/20/21 04:54 Reactive Lymphs % (Man) 0 % 12/20/21 04:54 Monocytes % (Manual) 5.0 % (0.0-7.3) 12/20/21 04:54 Eosinophils % (Manual) 1.0 % (0.0-4.3) 12/20/21 04:54 Basophils % (Manual) 0 % (0.0-1.8) 12/20/21 04:54 Metamyelocytes % 0 % 12/20/21 04:54 Myelocytes % 0 % 12/20/21 04:54 Promyelocytes % 0 % 12/20/21 04:54 Blast Cells % 0 % 12/20/21 04:54 Nucleated RBC % Not Reportable 12/20/21 04:54 Seg Neutrophils # Man 10.8 K/mm3 (1.8-7.7) H 12/20/21 04:54 Band Neutrophils # 0.0 K/mm3 12/20/21 04:54 Lymphocytes # (Manual) 0.7 K/mm3 (1.2-5.4) L 12/20/21 04:54 Abs React Lymphs (Man) 0.0 K/mm3 12/20/21 04:54 Monocytes # (Manual) 0.6 K/mm3 (0.0-0.8) 12/20/21 04:54 Eosinophils # (Manual) 0.1 K/mm3 (0.0-0.4) 12/20/21 04:54 Basophils # (Manual) 0.0 K/mm3 (0.0-0.1) 12/20/21 04:54 Metamyelocytes # 0.0 K/mm3 12/20/21 04:54 Myelocytes # 0.0 K/mm3 12/20/21 04:54 Promyelocytes # 0.0 K/mm3 12/20/21 04:54 Blast Cells # 0.0 K/mm3 12/20/21 04:54 WBC Morphology Not Reportable 12/20/21 04:54 Hypersegmented Neuts Not Reportable 12/20/21 04:54 Hyposegmented Neuts Not Reportable 12/20/21 04:54 Hypogranular Neuts Not Reportable 12/20/21 04:54 Smudge Cells Not Reportable 12/20/21 04:54 Toxic Granulation Not Reportable 12/20/21 04:54 Toxic Vacuolation Not Reportable 12/20/21 04:54 Dohle Bodies Not Reportable 12/20/21 04:54 Pelger-Huet Anomaly Not Reportable 12/20/21 04:54 Irina Rods Not Reportable 12/20/21 04:54 Platelet Estimate Consistent w auto 12/20/21 04:54 Clumped Platelets Not Reportable 12/20/21 04:54 Plt Clumps, EDTA Not Reportable 12/20/21 04:54 Large Platelets Not Reportable 12/20/21 04:54 Giant Platelets Not Reportable 12/20/21 04:54 Platelet Satelliting Not Reportable 12/20/21 04:54 Plt Morphology Comment Not Reportable 12/20/21 04:54 RBC Morphology Not Reportable 12/20/21 04:54 Dimorphic RBCs Not Reportable 12/20/21 04:54 Polychromasia Not Reportable 12/20/21 04:54 Hypochromasia Not Reportable 12/20/21 04:54 Poikilocytosis Not Reportable 12/20/21 04:54 Anisocytosis 1+ 12/20/21 04:54 Microcytosis Not Reportable 12/20/21 04:54 Macrocytosis Not Reportable 12/20/21 04:54 Spherocytes Not Reportable 12/20/21 04:54 Pappenheimer Bodies Not Reportable 12/20/21 04:54 Sickle Cells Not Reportable 12/20/21 04:54 Target Cells Not Reportable 12/20/21 04:54 Tear Drop Cells Not Reportable 12/20/21 04:54 Ovalocytes Not Reportable 12/20/21 04:54 Helmet Cells Not Reportable 12/20/21 04:54 Odonnell-Varnell Bodies Not Reportable 12/20/21 04:54 Iroquois Rings Not Reportable 12/20/21 04:54 Malcom Cells Not Reportable 12/20/21 04:54 Bite Cells Not Reportable 12/20/21 04:54 Crenated Cell Not Reportable 12/20/21 04:54 Elliptocytes Not Reportable 12/20/21 04:54 Acanthocytes (Spur) Not Reportable 12/20/21 04:54 Rouleaux Not Reportable 12/20/21 04:54 Hemoglobin C Crystals Not Reportable 12/20/21 04:54 Schistocytes Not Reportable 12/20/21 04:54 Malaria parasites Not Reportable 12/20/21 04:54 Godfrey Bodies Not Reportable 12/20/21 04:54 Hem Pathologist Commnt No 12/20/21 04:54 PT 16.9 Sec. (12.2-14.9) H 11/26/21 05:00 INR 1.24 (0.87-1.13) H 11/26/21 05:00 APTT 29.2 Sec. (24.2-36.6) 11/26/21 05:00 D-Dimer 2655.00 ng/mlDDU (0-234) H 11/11/21 04:28 ABG pH 7.479 pH Units (7.350-7.450) H 12/16/21 20:52 ABG pCO2 37.5 mm Hg 12/16/21 20:52 ABG pO2 79.3 mm Hg (80.0-90.0) L 12/16/21 20:52 ABG HCO3 27.3 mmol/L (20.0-26.0) H 12/16/21 20:52 ABG O2 Saturation 97.0 % (95.0-99.0) 12/16/21 20:52 ABG O2 Content 12.3 (0.0-44) 12/16/21 20:52 ABG Base Excess 3.6 mmol/L (-2.0-3.0) H 12/16/21 20:52 ABG Hemoglobin 9.1 gm/dl (12.0-16.0) L 12/16/21 20:52 ABG Carboxyhemoglobin 1.6 % (0.0-5.0) 12/16/21: ABG Methemoglobin 0.5 % (0.0-1.5) 12/16/21 20: Oxyhemoglobin 94.9 % (95.0-99.0) L 12/16/21 20:52 FiO2 30 % 12/16/21 20:52 Sodium 132 mmol/L (137-145) L 01/04/22 04:00 Potassium 4.0 mmol/L (3.6-5.0) 01/04/22 04:00 Chloride 92.8 mmol/L (98-107) L 01/04/22 04:00 Carbon Dioxide 29 mmol/L (22-30) 01/04/22 04:00 Anion Gap 14 mmol/L 01/04/22 04:00 BUN 30 mg/dL (7-17) H 01/04/22 04:00 Creatinine 0.6 mg/dL (0.6-1.2) 01/04/22 04:00 Estimated GFR > 60 ml/min 01/04/22 04:00 BUN/Creatinine Ratio 50 % 01/04/22 04:00 Glucose 115 mg/dL (65-100) H 01/04/22 04:00 POC Glucose 100 mg/dL (70-105) 01/04/22 05:25 Lactic Acid 3.70 mmol/L (0.7-2.0) H* 11/03/21 22:32 Calcium 9.0 mg/dL (8.4-10.2) 01/04/22 04:00 Phosphorus 3.60 mg/dL (2.5-4.5) 01/04/22 04:00 Magnesium 1.60 mg/dL (1.7-2.3) L 01/04/22 04:00 Ferritin 52.6 ng/mL (10.0-200.0) 11/05/21 06:11 Total Bilirubin 0.50 mg/dL (0.1-1.2) 11/17/21 05:56 Direct Bilirubin < 0.2 mg/dL (0-0.2) 11/11/21 04:28 Indirect Bilirubin 0.1 mg/dL 11/11/21 04:28 AST 36 units/L (5-40) 11/17/21 05:56 ALT 47 units/L (7-56) 11/17/21 05:56 Alkaline Phosphatase 107 units/L (35-129) 11/17/21 05:56 Ammonia 42.0 umol/L (25-60) 11/10/21 14:08 Lactate Dehydrogenase 187 units/L (91-180) H 11/05/21 06:11 Troponin T 0.045 ng/mL (0.00-0.029) H 11/29/21 20:15 C-Reactive Protein 22.20 mg/dL (0.00-1.30) H 11/05/21 06:11 NT-Pro-B Natriuret Pep 7895 pg/mL (0-900) H 11/03/21 22:32 Total Protein 5.1 g/dL (6.3-8.2) L 11/17/21 05:56 Albumin 2.2 g/dL (3.9-5) L 11/17/21 05:56 Albumin/Globulin Ratio 0.8 % 11/17/21 05:56 Triglycerides 59 mg/dL (2-149) 11/29/21 20:15 Cholesterol 74 mg/dL (50-199) 11/29/21 20:15 LDL Cholesterol Direct 25 mg/dL (50-130) L 11/29/21 20:15 HDL Cholesterol 41 mg/dL (40-59) 11/29/21 20:15 Cholesterol/HDL Ratio 1.80 % 11/29/21 20:15 Vitamin B12 1823 pg/mL (211-911) H 11/10/21 14:08 TSH 1.510 mlU/mL (0.270-4.200) 11/10/21 14:08 Urine Color Yellow (Yellow) 11/11/21 09:00 Urine Turbidity Slightly-cloudy (Clear) 11/11/21 09:00 Urine pH 5.0 (5.0-7.0) 11/11/21 09:00 Ur Specific [place] 1.009 (1.003-1.030) 11/11/21 09:00 Urine Protein <15 mg/dl mg/dL (Negative) 11/11/21 09:00 Urine Glucose (UA) Neg mg/dL (Negative) 11/11/21 09:00 Urine Ketones Neg mg/dL (Negative) 11/11/21 09:00 Urine Blood Mod (Negative) 11/11/21 09:00 Urine Nitrite Neg (Negative) 11/11/21 09:00 Urine Bilirubin Neg (Negative) 11/11/21 09:00 Urine Urobilinogen < 2.0 mg/dL (<2.0) 11/11/21 09:00 Ur Leukocyte Esterase Neg (Negative) 11/11/21 09:00 Urine WBC (Auto) < 1.0 /HPF (0.0-6.0) 11/11/21 09:00 Urine RBC (Auto) < 1.0 /HPF (0.0-6.0) 11/11/21 09:00 Vancomycin Trough 22.8 ug/mL (5.0-20.0) H 01/02/22 17:30 Random Vancomycin 10.5 ug/mL (0-40.0) 01/04/22 05:00 Coronavirus (PCR) Negative (Negative) 11/10/21 08:30 Blood Type O POSITIVE 12/14/21 10:30 Antibody Screen Negative 12/14/21 10:30 Crossmatch See Detail 12/14/21 10:30 Sánchez/IV: Voiding Method External Female Catheter Active Medications - Current Medications Current Medications: Generic Name Dose Route Start Last Admin Trade Name Freq PRN Reason Stop Dose Admin Acetaminophen 650 mg 12/14/21 04:12 01/01/22 11:45 Acetaminophen 325 Mg/10.15 Ml Oral Liqd Unit Dose FEEDTUBE 650 mg Q6H PRN Administration Non Cardiac Pain or Temp>100.5 Hydrocodone Bitart/Acetaminophen 1 each 11/21/21 10:00 01/04/22 09:13 Hydrocodone/Acetaminophen 10-325mg Tab FEEDTUBE 1 each TID YOSSI Administration Alprazolam 0.25 mg 12/30/21 09:00 01/03/22 19:51 Alprazolam 0.25 Mg Tab FEEDTUBE 0.25 mg Q8H PRN Administration Agitation Lipase/Protease/Amylase 1 each 11/08/21 11:09 Lipase 10,500/Protease 25,000/Amylase 43,750 (Units) Cap FEEDTUBE PRN PRN For Clogged Feeding Tube Buspirone HCl 7.5 mg 12/30/21 10:00 01/04/22 09:12 Buspirone 5 Mg Tab FEEDTUBE 7.5 mg BID YOSSI Administration Dextrose 0 ml 11/10/21 10:52 12/30/21 00:48 Dextrose 10% *Hypoglycemia IV 50 ml PRN PRN Administration Hypoglycemia Docusate Sodium 100 mg 12/30/21 10:00 01/04/22 09:13 Docusate Sodium 100 Mg/10 Ml Oral Liqd FEEDTUBE Not Given BID YOSSI Gabapentin 100 mg 12/30/21 10:00 01/04/22 09:12 Gabapentin 100 Mg Cap FEEDTUBE 100 mg QDAY YOSSI Administration Hydromorphone HCl 0.5 mg 12/08/21 20:06 12/29/21 14:45 Hydromorphone 1 Mg/1 Ml Inj IV 0.5 mg Q3H PRN Administration Pain, Moderate (4-6) Hydrophilic Ointment 1 applic 11/06/21 04:02 Lip Therapy Vaseline TP Q2HR PRN Dry Lips Vancomycin HCl 1 gm in 250 mls @ 166.667 mls/hr 01/04/22 10:00 01/04/22 09:14 Vancomycin/Ns 1 Gm/250 Ml IV 01/26/22 11:29 166.667 mls/hr Q48H YOSSI Administration Magnesium Sulfate 4 gm in 100 mls @ 25 mls/hr 01/04/22 10:00 01/04/22 09:18 Magnesium Sulfate 4gm/100ml IV 01/04/22 13:59 25 mls/hr ONCE ONE Administration Lansoprazole 30 mg 11/24/21 22:00 01/04/22 09:15 Lansoprazole 30 Mg Solutab FEEDTUBE 30 mg BID YOSSI Administration Levothyroxine Sodium 125 mcg 12/31/21 06:00 01/04/22 05:21 Levothyroxine 125 Mcg Tab FEEDTUBE 125 mcg DAILY@0600 YOSSI Administration Melatonin 5 mg 12/05/21 22:00 01/03/22 22:23 Melatonin 5 Mg Tab PO 5 mg QHS YOSSI Administration Metoclopramide HCl 5 mg 01/03/22 14:00 01/04/22 05:21 Metoclopramide 10 Mg/2 Ml Inj IV 01/05/22 13:59 5 mg Q8HR YOSSI Administration Metoprolol Tartrate 6.25 mg 12/30/21 10:00 01/04/22 09:12 Metoprolol Tartrate 25 Mg Tab FEEDTUBE 6.25 mg BID YOSSI Administration Midodrine 5 mg 12/30/21 09:00 01/04/22 11:47 Midodrine 5 Mg Tab FEEDTUBE 5 mg TID@0800,1200,1600 YOSSI Administration Multi-Ingred Cream/Lotion/Oil/Oint 1 applic 11/06/21 04:02 Mineral Oil/Petrolatum, White Ophth Oint 3.5 Gm OU Q4HR PRN Dry Eye(s) Ondansetron HCl 4 mg 12/05/21 10:00 01/03/22 19:49 Ondansetron 4 Mg/2 Ml Inj IV 4 mg Q8H PRN Administration Nausea And Vomiting Polyethylene Glycol 17 gm 12/30/21 10:00 01/04/22 09:14 Polyethylene Glycol 3350 17 Gm Powder FEEDTUBE Not Given QDAY YOSSI Pravastatin Sodium 20 mg 12/30/21 22:00 01/03/22 22:30 Pravastatin 20 Mg Tab FEEDTUBE 20 mg QHS YOSSI Administration Quetiapine Fumarate 25 mg 12/30/21 10:00 01/04/22 09:13 Quetiapine 25 Mg Tab FEEDTUBE 25 mg QAM YOSSI Administration Quetiapine Fumarate 50 mg 12/30/21 22:00 01/03/22 22:23 Quetiapine 25 Mg Tab FEEDTUBE 50 mg QHS YOSSI Administration Senna 17.6 mg 12/29/21 11:00 01/04/22 09:14 Sennosides Oral Liqd 8.8 Mg/5 Ml Oral Liqd FEEDTUBE Not Given Q12HR YOSSI Simple Syrup 15 ml 11/08/21 11:09 Simple Syrup 15 Ml FEEDTUBE PRN PRN Hypoglycemia Simple Syrup 30 ml 11/08/21 11:09 Simple Syrup 15 Ml FEEDTUBE PRN PRN Hypoglycemia Sodium Bicarbonate 325 mg 11/08/21 11:09 Sodium Bicarbonate 325 Mg Tab FEEDTUBE PRN PRN For Clogged Feeding Tube Sodium Chloride 10 ml 11/04/21 10:00 01/04/22 09:15 Sodium Chloride 0.9% 10 Ml Flush Syringe IV 10 ml BID YOSSI Administration Sodium Chloride 10 ml 11/04/21 02:03 Sodium Chloride 0.9% 10 Ml Flush Syringe IV PRN PRN LINE FLUSH Spironolactone 25 mg 12/30/21 10:00 01/04/22 09:13 Spironolactone 25 Mg Tab FEEDTUBE 25 mg QDAY YOSSI Administration Sucralfate 1 gm 12/30/21 12:00 01/04/22 11:47 Sucralfate 1 Gm/10 Ml Oral Liqd FEEDTUBE 1 gm Q6HR YOSSI Administration Trazodone HCl 50 mg 12/04/21 22:00 01/03/22 22:20 Trazodone 50 Mg Tab PO 50 mg QHS YOSSI Administration Nutrition/Malnutrition Assess - Dietary Evaluation Nutrition/Malnutrition Findings: Nutrition Notes Start: 11/04/21 17:16 Freq: Status: Active Protocol: Document 01/02/22 12:11 [facility] (Rec: 01/02/22 12:17 [facility] [id number]) Nutrition Notes Initial or Follow up Reassessment Current Diagnosis Diabetes,Heart Failure, Respiratory Failure Other Pertinent Diagnosis Bacteremia, pneu, Bilat pleural effusion, Agitation/ anxiety Current Diet TF - Vital AF 1.2 at 45ml/hr Labs/Tests Na 131 K 3.5 BUN 27 Pertinent Medications 25% Human Albumin, Colace, Lasix, Reglan, Miralax, 40mEq KCl, Senokot, Sucralfate Height 5 ft Weight 73.3 kg [place] Body Weight (kg) 45.45 BMI 31.5 Weight change and time frame Current wt obtained from bed scale Weight Status Obese Subjective/Other Information Observed TF infusing at goal rate. Pt remains on vent support. Percent of energy/protein needs met: 100% energy 89% pro Burn Absent Trauma Absent #1 Nutrition Diagnosis Inadequate oral intake Diagnosis Progress(for reassessment Continues documentation) Is patient on ventilator? Yes Is Patient Ambulatory and/or Out of Bed No REE-([place]-confined to bed) 1338.492 Kcal/Kg value to use for calculation 17 Approximate Energy Requirements Using 1246 kcal/Kg Calculation Used for Recommendations Kcal/kg Additional Notes Pro needs 2g/kg IBW: 91g/day Fluid needs per MD. Nutrition Intervention Nutrition Support: Continue Vital AF 1.2 at 45ml/ hr with 70ml water flush q4h. Kcal 1,296 Protein (gm) 81 Carbohydrates (gm) 119 Fat (gm) 58 Fluid (mL) 876 Fiber (gm) 6 Goal #1 TF tolerance Goal #2 TF to meet at least 75% energy and pro needs Follow-Up By: 01/09/22 Additional Comments F/U: stable TF, vent status, wt <LEAH ALFONSO - Last Filed: 01/05/22 07:38> Assessment and Plan Assessment and plan: I saw and evaluated the patient. I agree with the findings and the plan of care as documented in the Nurse Practitioner's~note, with the following corrections and additions. Hospitalist Physical - Constitutional Vitals: Temp Pulse Resp BP Pulse Ox 98.6 F 60 15 128/74 100 01/05/22 04:00 01/05/22 06:00 01/05/22 06:00 01/05/22 06:00 01/05/22 06:00 HEART Score - HEART Score Troponin: Troponin T 0.045 ng/mL (0.00-0.029) H 11/29/21 20:15 Results - Labs CBC & Chem 7: 01/05/22 04:30 01/05/22 04:30 Labs: Laboratory Last Values WBC 10.0 K/mm3 (4.5-11.0) 01/05/22 04:30 RBC 3.11 M/mm3 (3.65-5.03) L 01/05/22 04:30 Hgb 8.4 gm/dl (10.1-14.3) L 01/05/22 04:30 Hct 25.5 % (30.3-42.9) L 01/05/22 04:30 MCV 82 fl (79-97) 01/05/22 04:30 MCH 27 pg (28-32) L 01/05/22 04:30 MCHC 33 % (30-34) 01/05/22 04:30 RDW 17.6 % (13.2-15.2) H 01/05/22 04:30 Plt Count 242 K/mm3 (140-440) 01/05/22 04:30 Add Manual Diff Complete 12/20/21 04:54 Total Counted 100 12/20/21 04:54 Seg Neutrophils % [employer] 11/06/21 15:50 Seg Neuts % (Manual) 88.0 % (40.0-70.0) H 12/20/21 04:54 Band Neutrophils % 0 % 12/20/21 04:54 Lymphocytes % (Manual) 6.0 % (13.4-35.0) L 12/20/21 04:54 Reactive Lymphs % (Man) 0 % 12/20/21 04:54 Monocytes % (Manual) 5.0 % (0.0-7.3) 12/20/21 04:54 Eosinophils % (Manual) 1.0 % (0.0-4.3) 12/20/21 04:54 Basophils % (Manual) 0 % (0.0-1.8) 12/20/21 04:54 Metamyelocytes % 0 % 12/20/21 04:54 Myelocytes % 0 % 12/20/21 04:54 Promyelocytes % 0 % 12/20/21 04:54 Blast Cells % 0 % 12/20/21 04:54 Nucleated RBC % Not Reportable 12/20/21 04:54 Seg Neutrophils # Man 10.8 K/mm3 (1.8-7.7) H 12/20/21 04:54 Band Neutrophils # 0.0 K/mm3 12/20/21 04:54 Lymphocytes # (Manual) 0.7 K/mm3 (1.2-5.4) L 12/20/21 04:54 Abs React Lymphs (Man) 0.0 K/mm3 12/20/21 04:54 Monocytes # (Manual) 0.6 K/mm3 (0.0-0.8) 12/20/21 04:54 Eosinophils # (Manual) 0.1 K/mm3 (0.0-0.4) 12/20/21 04:54 Basophils # (Manual) 0.0 K/mm3 (0.0-0.1) 12/20/21 04:54 Metamyelocytes # 0.0 K/mm3 12/20/21 04:54 Myelocytes # 0.0 K/mm3 12/20/21 04:54 Promyelocytes # 0.0 K/mm3 12/20/21 04:54 Blast Cells # 0.0 K/mm3 12/20/21 04:54 WBC Morphology Not Reportable 12/20/21 04:54 Hypersegmented Neuts Not Reportable 12/20/21 04:54 Hyposegmented Neuts Not Reportable 12/20/21 04:54 Hypogranular Neuts Not Reportable 12/20/21 04:54 Smudge Cells Not Reportable 12/20/21 04:54 Toxic Granulation Not Reportable 12/20/21 04:54 Toxic Vacuolation Not Reportable 12/20/21 04:54 Dohle Bodies Not Reportable 12/20/21 04:54 Pelger-Huet Anomaly Not Reportable 12/20/21 04:54 Irina Rods Not Reportable 12/20/21 04:54 Platelet Estimate Consistent w auto 12/20/21 04:54 Clumped Platelets Not Reportable 12/20/21 04:54 Plt Clumps, EDTA Not Reportable 12/20/21 04:54 Large Platelets Not Reportable 12/20/21 04:54 Giant Platelets Not Reportable 12/20/21 04:54 Platelet Satelliting Not Reportable 12/20/21 04:54 Plt Morphology Comment Not Reportable 12/20/21 04:54 RBC Morphology Not Reportable 12/20/21 04:54 Dimorphic RBCs Not Reportable 12/20/21 04:54 Polychromasia Not Reportable 12/20/21 04:54 Hypochromasia Not Reportable 12/20/21 04:54 Poikilocytosis Not Reportable 12/20/21 04:54 Anisocytosis 1+ 12/20/21 04:54 Microcytosis Not Reportable 12/20/21 04:54 Macrocytosis Not Reportable 12/20/21 04:54 Spherocytes Not Reportable 12/20/21 04:54 Pappenheimer Bodies Not Reportable 12/20/21 04:54 Sickle Cells Not Reportable 12/20/21 04:54 Target Cells Not Reportable 12/20/21 04:54 Tear Drop Cells Not Reportable 12/20/21 04:54 Ovalocytes Not Reportable 12/20/21 04:54 Helmet Cells Not Reportable 12/20/21 04:54 Odonnell-Varnell Bodies Not Reportable 12/20/21 04:54 Iroquois Rings Not Reportable 12/20/21 04:54 Malcom Cells Not Reportable 12/20/21 04:54 Bite Cells Not Reportable 12/20/21 04:54 Crenated Cell Not Reportable 12/20/21 04:54 Elliptocytes Not Reportable 12/20/21 04:54 Acanthocytes (Spur) Not Reportable 12/20/21 04:54 Rouleaux Not Reportable 12/20/21 04:54 Hemoglobin C Crystals Not Reportable 12/20/21 04:54 Schistocytes Not Reportable 12/20/21 04:54 Malaria parasites Not Reportable 12/20/21 04:54 Godfrey Bodies Not Reportable 12/20/21 04:54 Hem Pathologist Commnt No 12/20/21 04:54 PT 16.9 Sec. (12.2-14.9) H 11/26/21 05:00 INR 1.24 (0.87-1.13) H 11/26/21 05:00 APTT 29.2 Sec. (24.2-36.6) 11/26/21 05:00 D-Dimer 2655.00 ng/mlDDU (0-234) H 11/11/21 04:28 ABG pH 7.479 pH Units (7.350-7.450) H 12/16/21 20:52 ABG pCO2 37.5 mm Hg 12/16/21 20:52 ABG pO2 79.3 mm Hg (80.0-90.0) L 12/16/21 20:52 ABG HCO3 27.3 mmol/L (20.0-26.0) H 12/16/21 20:52 ABG O2 Saturation 97.0 % (95.0-99.0) 12/16/21 20:52 ABG O2 Content 12.3 (0.0-44) 12/16/21 20:52 ABG Base Excess 3.6 mmol/L (-2.0-3.0) H 12/16/21 20:52 ABG Hemoglobin 9.1 gm/dl (12.0-16.0) L 12/16/21 20:52 ABG Carboxyhemoglobin 1.6 % (0.0-5.0) 12/16/21 20:52 ABG Methemoglobin 0.5 % (0.0-1.5) 12/16/21 20:52 Oxyhemoglobin 94.9 % (95.0-99.0) L 12/16/21 20:52 FiO2 30 % 12/16/21 20:52 Sodium 135 mmol/L (137-145) L 01/05/22 04:30 Potassium 3.8 mmol/L (3.6-5.0) 01/05/22 04:30 Chloride 93.6 mmol/L (98-107) L 01/05/22 04:30 Carbon Dioxide 29 mmol/L (22-30) 01/05/22 04:30 Anion Gap 16 mmol/L 01/05/22 04:30 BUN 29 mg/dL (7-17) H 01/05/22 04:30 Creatinine 0.6 mg/dL (0.6-1.2) 01/05/22 04:30 Estimated GFR > 60 ml/min 01/05/22 04:30 BUN/Creatinine Ratio 48 % 01/05/22 04:30 Glucose 95 mg/dL (65-100) 01/05/22 04:30 POC Glucose 101 mg/dL (70-105) 01/04/22 23:45 Lactic Acid 3.70 mmol/L (0.7-2.0) H* 11/03/21 22:32 Calcium 9.2 mg/dL (8.4-10.2) 01/05/22 04:30 Phosphorus 3.80 mg/dL (2.5-4.5) 01/05/22 04:30 Magnesium 2.00 mg/dL (1.7-2.3) 01/05/22 04:30 Ferritin 52.6 ng/mL (10.0-200.0) 11/05/21 06:11 Total Bilirubin 0.50 mg/dL (0.1-1.2) 11/17/21 05:56 Direct Bilirubin < 0.2 mg/dL (0-0.2) 11/11/21 04:28 Indirect Bilirubin 0.1 mg/dL 11/11/21 04:28 AST 36 units/L (5-40) 11/17/21 05:56 ALT 47 units/L (7-56) 11/17/21 05:56 Alkaline Phosphatase 107 units/L (35-129) 11/17/21 05:56 Ammonia 42.0 umol/L (25-60) 11/10/21 14:08 Lactate Dehydrogenase 187 units/L (91-180) H 11/05/21 06:11 Troponin T 0.045 ng/mL (0.00-0.029) H 11/29/21 20:15 C-Reactive Protein 22.20 mg/dL (0.00-1.30) H 11/05/21 06:11 NT-Pro-B Natriuret Pep 7895 pg/mL (0-900) H 11/03/21 22:32 Total Protein 5.1 g/dL (6.3-8.2) L 11/17/21 05:56 Albumin 2.2 g/dL (3.9-5) L 11/17/21 05:56 Albumin/Globulin Ratio 0.8 % 11/17/21 05:56 Triglycerides 59 mg/dL (2-149) 11/29/21 20:15 Cholesterol 74 mg/dL (50-199) 11/29/21 20:15 LDL Cholesterol Direct 25 mg/dL (50-130) L 11/29/21 20:15 HDL Cholesterol 41 mg/dL (40-59) 11/29/21 20:15 Cholesterol/HDL Ratio 1.80 % 11/29/21 20:15 Vitamin B12 1823 pg/mL (211-911) H 11/10/21 14:08 TSH 1.510 mlU/mL (0.270-4.200) 11/10/21 14:08 Urine Color Yellow (Yellow) 11/11/21 09:00 Urine Turbidity Slightly-cloudy (Clear) 11/11/21 09:00 Urine pH 5.0 (5.0-7.0) 11/11/21 09:00 Ur Specific [place] 1.009 (1.003-1.030) 11/11/21 09:00 Urine Protein <15 mg/dl mg/dL (Negative) 11/11/21 09:00 Urine Glucose (UA) Neg mg/dL (Negative) 11/11/21 09:00 Urine Ketones Neg mg/dL (Negative) 11/11/21 09:00 Urine Blood Mod (Negative) 11/11/21 09:00 Urine Nitrite Neg (Negative) 11/11/21 09:00 Urine Bilirubin Neg (Negative) 11/11/21 09:00 Urine Urobilinogen < 2.0 mg/dL (<2.0) 11/11/21 09:00 Ur Leukocyte Esterase Neg (Negative) 11/11/21 09:00 Urine WBC (Auto) < 1.0 /HPF (0.0-6.0) 11/11/21 09:00 Urine RBC (Auto) < 1.0 /HPF (0.0-6.0) 11/11/21 09:00 Vancomycin Trough 22.8 ug/mL (5.0-20.0) H 01/02/22 17:30 Random Vancomycin 10.5 ug/mL (0-40.0) 01/04/22 05:00 Coronavirus (PCR) Negative (Negative) 11/10/21 08:30 Blood Type O POSITIVE 12/14/21 10:30 Antibody Screen Negative 12/14/21 10:30 Crossmatch See Detail 12/14/21 10:30 Sánchez/IV: Voiding Method External Female Catheter Active Medications - Current Medications Current Medications: Generic Name Dose Route Start Last Admin Trade Name Freq PRN Reason Stop Dose Admin Acetaminophen 650 mg 12/14/21 04:12 01/01/22 11:45 Acetaminophen 325 Mg/10.15 Ml Oral Liqd Unit Dose FEEDTUBE 650 mg Q6H PRN Administration Non Cardiac Pain or Temp>100.5 Hydrocodone Bitart/Acetaminophen 1 each 11/21/21 10:00 01/04/22 20:15 Hydrocodone/Acetaminophen 10-325mg Tab FEEDTUBE 1 each TID YOSSI Administration Alprazolam 0.25 mg 12/30/21 09:00 01/03/22 19:51 Alprazolam 0.25 Mg Tab FEEDTUBE 0.25 mg Q8H PRN Administration Agitation Lipase/Protease/Amylase 1 each 11/08/21 11:09 Lipase 10,500/Protease 25,000/Amylase 43,750 (Units) Dr Cap FEEDTUBE PRN PRN For Clogged Feeding Tube Buspirone HCl 7.5 mg 12/30/21 10:00 01/05/22 01:13 Buspirone 5 Mg Tab FEEDTUBE Not Given BID YOSSI Dextrose 0 ml 11/10/21 10:52 12/30/21 00:48 Dextrose 10% *Hypoglycemia IV 50 ml PRN PRN Administration Hypoglycemia Docusate Sodium 100 mg 12/30/21 10:00 01/05/22 01:13 Docusate Sodium 100 Mg/10 Ml Oral Liqd FEEDTUBE Not Given BID YOSSI Gabapentin 100 mg 12/30/21 10:00 01/04/22 09:12 Gabapentin 100 Mg Cap FEEDTUBE 100 mg QDAY YOSSI Administration Hydromorphone HCl 0.5 mg 12/08/21 20:06 01/05/22 04:15 Hydromorphone 1 Mg/1 Ml Inj IV 0.5 mg Q3H PRN Administration Pain, Moderate (4-6) Hydrophilic Ointment 1 applic 11/06/21 04:02 Lip Therapy Vaseline TP Q2HR PRN Dry Lips Vancomycin HCl 1 gm in 250 mls @ 166.667 mls/hr 01/04/22 10:00 01/04/22 09:14 Vancomycin/Ns 1 Gm/250 Ml IV 01/26/22 11:29 166.667 mls/hr Q48H YOSSI Administration Lansoprazole 30 mg 11/24/21 22:00 01/05/22 01:16 Lansoprazole 30 Mg Solutab FEEDTUBE Not Given BID YOSSI Levothyroxine Sodium 125 mcg 12/31/21 06:00 01/05/22 05:00 Levothyroxine 125 Mcg Tab FEEDTUBE 125 mcg DAILY@0600 YOSSI Administration Melatonin 5 mg 12/05/21 22:00 01/05/22 01:14 Melatonin 5 Mg Tab PO Not Given QHS YOSSI Metoclopramide HCl 5 mg 01/03/22 14:00 01/05/22 05:00 Metoclopramide 10 Mg/2 Ml Inj IV 01/05/22 13:59 5 mg Q8HR YOSSI Administration Metoprolol Tartrate 6.25 mg 12/30/21 10:00 01/04/22 22:15 Metoprolol Tartrate 25 Mg Tab FEEDTUBE 6.25 mg BID YOSSI Administration Midodrine 5 mg 12/30/21 09:00 01/04/22 17:32 Midodrine 5 Mg Tab FEEDTUBE 5 mg TID@0800,1200,1600 YOSSI Administration Multi-Ingred Cream/Lotion/Oil/Oint 1 applic 11/06/21 04:02 Mineral Oil/Petrolatum, White Ophth Oint 3.5 Gm OU Q4HR PRN Dry Eye(s) Ondansetron HCl 4 mg 12/05/21 10:00 01/03/22 19:49 Ondansetron 4 Mg/2 Ml Inj IV 4 mg Q8H PRN Administration Nausea And Vomiting Polyethylene Glycol 17 gm 12/30/21 10:00 01/04/22 09:14 Polyethylene Glycol 3350 17 Gm Powder FEEDTUBE Not Given QDAY YOSSI Pravastatin Sodium 20 mg 12/30/21 22:00 01/04/22 22:15 Pravastatin 20 Mg Tab FEEDTUBE 20 mg QHS YOSSI Administration Quetiapine Fumarate 25 mg 12/30/21 10:00 01/04/22 09:13 Quetiapine 25 Mg Tab FEEDTUBE 25 mg QAM YOSSI Administration Quetiapine Fumarate 50 mg 12/30/21 22:00 01/05/22 01:17 Quetiapine 25 Mg Tab FEEDTUBE Not Given QHS YOSSI Senna 17.6 mg 12/29/21 11:00 01/05/22 01:16 Sennosides Oral Liqd 8.8 Mg/5 Ml Oral Liqd FEEDTUBE Not Given Q12HR YOSSI Simple Syrup 15 ml 11/08/21 11:09 Simple Syrup 15 Ml FEEDTUBE PRN PRN Hypoglycemia Simple Syrup 30 ml 11/08/21 11:09 Simple Syrup 15 Ml FEEDTUBE PRN PRN Hypoglycemia Sodium Bicarbonate 325 mg 11/08/21 11:09 Sodium Bicarbonate 325 Mg Tab FEEDTUBE PRN PRN For Clogged Feeding Tube Sodium Chloride 10 ml 11/04/21 10:00 01/05/22 01:17 Sodium Chloride 0.9% 10 Ml Flush Syringe IV Not Given BID YOSSI Sodium Chloride 10 ml 11/04/21 02:03 Sodium Chloride 0.9% 10 Ml Flush Syringe IV PRN PRN LINE FLUSH Spironolactone 25 mg 12/30/21 10:00 01/04/22 09:13 Spironolactone 25 Mg Tab FEEDTUBE 25 mg QDAY YOSIS Administration Sucralfate 1 gm 12/30/21 12:00 01/05/22 05:00 Sucralfate 1 Gm/10 Ml Oral Liqd FEEDTUBE 1 gm Q6HR [facility] Administration Trazodone HCl 50 mg 12/04/21 22:00 01/05/22 01:14 Trazodone 50 Mg Tab PO Not Given QHS [facility] Nutrition/Malnutrition Assess - Dietary Evaluation Nutrition/Malnutrition Findings: Nutrition Notes Start: 11/04/21 17:16 Freq: Status: Active Protocol: Document 01/02/22 12:11 [facility] (Rec: 01/02/22 12:17 [facility] [id number]) Nutrition Notes Initial or Follow up Reassessment Current Diagnosis Diabetes,Heart Failure, Respiratory Failure Other Pertinent Diagnosis Bacteremia, pneu, Bilat pleural effusion, Agitation/ anxiety Current Diet TF - Vital AF 1.2 at 45ml/hr Labs/Tests Na 131 K 3.5 BUN 27 Pertinent Medications 25% Human Albumin, Colace, Lasix, Reglan, Miralax, 40mEq KCl, Senokot, Sucralfate Height 5 ft Weight 73.3 kg [place] Body Weight (kg) 45.45 BMI 31.5 Weight change and time frame Current wt obtained from bed scale Weight Status Obese Subjective/Other Information Observed TF infusing at goal rate. Pt remains on vent support. Percent of energy/protein needs met: 100% energy 89% pro Burn Absent Trauma Absent #1 Nutrition Diagnosis Inadequate oral intake Diagnosis Progress(for reassessment Continues documentation) Is patient on ventilator? Yes Is Patient Ambulatory and/or Out of Bed No REE-([facility]-confined to bed) 1338.492 Kcal/Kg value to use for calculation 17 Approximate Energy Requirements Using 1246 kcal/Kg Calculation Used for Recommendations Kcal/kg Additional Notes Pro needs 2g/kg IBW: 91g/day Fluid needs per MD. Nutrition Intervention Nutrition Support: Continue Vital AF 1.2 at 45ml/ hr with 70ml water flush q4h. Kcal 1,296 Protein (gm) 81 Carbohydrates (gm) 119 Fat (gm) 58 Fluid (mL) 876 Fiber (gm) 6 Goal #1 TF tolerance Goal #2 TF to meet at least 75% energy and pro needs Follow-Up By: 01/09/22 Additional Comments F/U: stable TF, vent status, wt
[2022-01-04] MEDS: FUROSEMIDE 20 MG/2 ML INJ IV SCH ×2 (14:46→22:14)
[2022-01-04] MEDS: PRAVASTATIN 20 MG TAB FEEDTUBE SCH (22:15)
--- NOTE | 2022-01-04 22:36 | Progress Note ---
Assessment and Plan 81-year-old female with known history of diabetes mellitus, hypertension and arthritis brought to the emergency room via EMS for shortness of breath which has been ongoing for the past 3 days prior to come to the emergency room. Patient has been having some cough and shortness of breath. According to patient's , patient has also been having a fever of about 102.2 F. Upon arrival of EMS patient was found to be tachypneic with O2 saturation of 76% on room air which later improved to 88% on nonrebreather. Work-up in the emergency room , chest x-ray shows bilateral interstitial pulmonary edema with bilateral pleural effusions.. Bibasilar opacities which favors atelectasis. Lab reveals leukocytosis of 29. Hemoglobin of 6.1. Patient received blood transfusion and also checked for COVID-19. Patient Ivy virus test reported negative. Patient intubated and placed on mechanical ventilation. Patient transfered to ICU. Patient undergone thoracentesis and chest tube placement. Patient still on mechanical ventilation. Patient transfered to IMCU. Patient sleeping. Not responding to verbal stimuli. . Patient is still on assist control mechanical ventilation, rate 14, Tidal volume 400, FIO2 30%, PEEP 8 and O2 saturation running 100%. Patient afebrile. No leukocytosis.Blood pressure 142/64, Pulse 61 , respirations 16 Patients recent HGB 7.7 01/03/22 Chest xray 12/11/21 reported Diffuse bilateral pulmonary opacities most significant in the left lung and right upper lung .No pneumothorax. Chest xray done 01/01/22 reported Worsening bilateral pulmonary opacities and effusions Patient is on Vancomycin, Prevacid and Sucralfate. Recommend SCDs. Patient is on tube feeding. I spent critical care time of 35 minutes, reviewing the chart, examine the patient, review lab results, chest xray and talk to respiratory therapy and nursing staff and work out plan of treatment in this critically ill patient. - Patient Problems (1) Acute respiratory failure with hypoxia Current Visit: Yes Status: Acute Plan to address problem: Mechanical ventilation, assist control, rate 14, Tidal volue 400, FIO2 30%, PEEP 8 S/P tracheostomy. (2) Bilateral pneumonia Current Visit: Yes Status: Acute Plan to address problem: Patient is on vancomycin. (3) Occult blood positive stool Current Visit: Yes Status: Acute Plan to address problem: Management as per gastroenterology. (4) Acute anemia Current Visit: Yes Status: Acute Plan to address problem: Patient received blood transfusion. (5) Suspected COVID-19 virus infection Current Visit: Yes Status: Acute Plan to address problem: Ivy virus PCR negative. Subjective Date of service: 01/04/22 Principal diagnosis: Septic shock; AHRF; Anemia; Pneumonia; pleural effusion; HFrEF; Pulm HTN Interval history: 81-year-old female with known history of diabetes mellitus, hypertension and arthritis brought to the emergency room via EMS for shortness of breath which has been ongoing for the past 3 days prior to come to the emergency room. Patient has been having some cough and shortness of breath. According to patient's , patient has also been having a fever of about 102.2 F. Upon arrival of EMS patient was found to be tachypneic with O2 saturation of 76% on room air which later improved to 88% on nonrebreather. Work-up in the emergency room , chest x-ray shows bilateral interstitial pulmonary edema with bilateral pleural effusions.. Bibasilar opacities which favors atelectasis. Lab reveals leukocytosis of 29. Hemoglobin of 6.1. Patient received blood transfusion and also checked for COVID-19. Patient Ivy virus test reported negative. Patient intubated and placed on mechanical ventilation. Patient transfered to ICU. Patient undergone thoracentesis and chest tube placement. Patient still on mechanical ventilation. Patient transfered to IMCU. Patient sleeping. Not responding to verbal stimuli. . Patient is still on assist control mechanical ventilation, rate 14, Tidal volume 400, FIO2 30%, PEEP 8 and O2 saturation running 100%. Patient afebrile. No leukocytosis.Blood pressure 142/64, Pulse 61 , respirations 16 Patients recent HGB 7.7 01/03/22 Chest xray 12/11/21 reported Diffuse bilateral pulmonary opacities most significant in the left lung and right upper lung .No pneumothorax. Chest xray done 01/01/22 reported Worsening bilateral pulmonary opacities and effusions Patient is on Vancomycin, Prevacid and Sucralfate. Recommend SCDs. Patient is on tube feeding. Objective Vital Signs - 12hr 01/04/22 01/04/22 01/04/22 11:00 11:58 12:00 Temperature Pulse Rate 67 61 61 Pulse Rate [ 65 From Monitor] Respiratory 24 15 20 Rate Blood Pressure 143/65 143/65 133/59 O2 Sat by Pulse 100 100 100 Oximetry O2 Sat by Pulse Oximetry [ Assessment] 01/04/22 01/04/22 01/04/22 13:00 13:37 14:00 Temperature 97.6 F Pulse Rate 60 70 Pulse Rate [ From Monitor] Respiratory 19 21 Rate Blood Pressure 134/64 134/64 O2 Sat by Pulse 100 100 Oximetry O2 Sat by Pulse Oximetry [ Assessment] 01/04/22 01/04/22 01/04/22 15:00 16:00 16:35 Temperature 97.6 F Pulse Rate 77 67 62 Pulse Rate [ 68 From Monitor] Respiratory 20 18 21 Rate Blood Pressure 154/126 136/63 136/63 O2 Sat by Pulse 100 100 100 Oximetry O2 Sat by Pulse 100 Oximetry [ Assessment] 01/04/22 01/04/22 01/04/22 17:00 18:00 20:00 Temperature 97.6 F Pulse Rate 60 62 Pulse Rate [ From Monitor] Respiratory 16 16 Rate Blood Pressure 130/60 142/64 O2 Sat by Pulse 100 100 Oximetry O2 Sat by Pulse Oximetry [ Assessment] 01/04/22 20:07 Temperature Pulse Rate 62 Pulse Rate [ From Monitor] Respiratory 0 L Rate Blood Pressure 142/64 O2 Sat by Pulse 100 Oximetry O2 Sat by Pulse Oximetry [ Assessment] Constitutional: no acute distress, asleep, other (trach to MVS, frail elderly woman with mildly increased respiratory effort at rest) Eyes: non-icteric ENT: oropharynx moist, other (+ Midline tracheostomy with minimal secretions) Neck: supple, no lymphadenopathy, no JVD Effort: mildly labored Ascultation: Bilateral: diminished breath sounds, rhonchi, other (Right chest tube) Percussion: Bilateral: not dull Cardiovascular: regular rate and rhythm, other (S1,S2) Gastrointestinal: normoactive bowel sounds, soft, non-tender, non-distended (protuberant) Integumentary: normal Extremities: no cyanosis, pink and warm, pulses normal, edema (upper etremities), anasarca Neurologic: non-focal exam (grossly), pupils equal and round Psychiatric: other (Sedated. Not responding to verbal stimuli.) CBC and BMP: 01/03/22 04:53 01/04/22 04:00 ABG, PT/INR, D-dimer: ABG ABG pH 7.479 pH Units (7.350-7.450) H 12/16/21 20:52 ABG pCO2 37.5 mm Hg 12/16/21 20:52 ABG pO2 79.3 mm Hg (80.0-90.0) L 12/16/21 20:52 ABG O2 Saturation 97.0 % (95.0-99.0) 12/16/21 20:52 PT/INR, D-dimer PT 16.9 Sec. (12.2-14.9) H 11/26/21 05:00 INR 1.24 (0.87-1.13) H 11/26/21 05:00 D-Dimer 2655.00 ng/mlDDU (0-234) H 11/11/21 04:28 Abnormal lab findings: Abnormal Labs 11/03/21 11/03/21 11/03/21 22:32 22:32 22:32 WBC 29.3 H RBC 2.93 L Hgb 6.1 L Hct 21.9 L MCV 75 L MCH 21 L MCHC 28 L RDW 19.7 H Plt Count Seg Neuts % (Manual) 97.0 H Lymphocytes % (Manual) 3.0 L Seg Neutrophils # Man 28.4 H Lymphocytes # (Manual) 0.9 L Monocytes # (Manual) PT 18.6 H INR 1.40 H D-Dimer ABG pH ABG pO2 ABG HCO3 ABG O2 Saturation ABG Base Excess ABG Hemoglobin Oxyhemoglobin Sodium Potassium Chloride Carbon Dioxide 20 L BUN 33 H Creatinine Glucose 119 H POC Glucose Lactic Acid Calcium 8.3 L Phosphorus Magnesium AST ALT Alkaline Phosphatase Lactate Dehydrogenase Troponin T 0.035 H C-Reactive Protein NT-Pro-B Natriuret Pep Total Protein Albumin LDL Cholesterol Direct 34 L Vitamin B12 Vancomycin Trough Crossmatch 11/03/21 11/03/21 11/03/21 22:32 22:32 23:57 WBC RBC Hgb Hct MCV MCH MCHC RDW Plt Count Seg Neuts % (Manual) Lymphocytes % (Manual) Seg Neutrophils # Man Lymphocytes # (Manual) Monocytes # (Manual) PT INR D-Dimer ABG pH ABG pO2 ABG HCO3 ABG O2 Saturation ABG Base Excess ABG Hemoglobin Oxyhemoglobin Sodium Potassium Chloride Carbon Dioxide BUN Creatinine Glucose POC Glucose Lactic Acid 3.70 H* Calcium Phosphorus Magnesium AST ALT Alkaline Phosphatase 139 H Lactate Dehydrogenase Troponin T C-Reactive Protein NT-Pro-B Natriuret Pep 7895 H Total Protein Albumin 3.5 L LDL Cholesterol Direct Vitamin B12 Vancomycin Trough Crossmatch See Detail 11/04/21 11/04/21 11/05/21 00:59 13:58 00:51 WBC 27.9 H RBC 3.28 L Hgb 7.3 L Hct 25.5 L MCV 78 L MCH 22 L MCHC 29 L RDW 19.1 H Plt Count Seg Neuts % (Manual) 96.0 H Lymphocytes % (Manual) 2.0 L Seg Neutrophils # Man 26.8 H Lymphocytes # (Manual) 0.6 L Monocytes # (Manual) PT INR D-Dimer ABG pH ABG pO2 ABG HCO3 ABG O2 Saturation ABG Base Excess ABG Hemoglobin Oxyhemoglobin Sodium Potassium Chloride Carbon Dioxide BUN Creatinine Glucose POC Glucose Lactic Acid Calcium Phosphorus Magnesium AST ALT Alkaline Phosphatase Lactate Dehydrogenase Troponin T 0.051 H D 0.032 H D C-Reactive Protein NT-Pro-B Natriuret Pep Total Protein Albumin LDL Cholesterol Direct Vitamin B12 Vancomycin Trough Crossmatch 11/05/21 11/05/21 11/05/21 06:11 06:11 06:11 WBC 31.8 H RBC 3.57 L Hgb 8.0 L Hct 27.7 L MCV 78 L MCH 22 L MCHC 29 L RDW 19.2 H Plt Count Seg Neuts % (Manual) 91.0 H Lymphocytes % (Manual) 4.5 L Seg Neutrophils # Man 28.9 H Lymphocytes # (Manual) Monocytes # (Manual) 1.1 H PT INR D-Dimer 1494.53 H ABG pH ABG pO2 ABG HCO3 ABG O2 Saturation ABG Base Excess ABG Hemoglobin Oxyhemoglobin Sodium Potassium Chloride Carbon Dioxide 19 L BUN 42 H Creatinine Glucose 115 H POC Glucose Lactic Acid Calcium Phosphorus Magnesium AST 43 H ALT Alkaline Phosphatase Lactate Dehydrogenase 187 H Troponin T C-Reactive Protein 22.20 H NT-Pro-B Natriuret Pep Total Protein 6.0 L Albumin 3.2 L LDL Cholesterol Direct Vitamin B12 Vancomycin Trough Crossmatch 11/05/21 11/05/21 11/06/21 06:11 12:15 00:30 WBC RBC Hgb Hct MCV MCH MCHC RDW Plt Count Seg Neuts % (Manual) Lymphocytes % (Manual) Seg Neutrophils # Man Lymphocytes # (Manual) Monocytes # (Manual) PT INR D-Dimer ABG pH ABG pO2 ABG HCO3 ABG O2 Saturation ABG Base Excess ABG Hemoglobin Oxyhemoglobin Sodium Potassium Chloride Carbon Dioxide BUN Creatinine Glucose POC Glucose 113 H 69 L Lactic Acid Calcium Phosphorus Magnesium AST ALT Alkaline Phosphatase Lactate Dehydrogenase Troponin T 0.033 H C-Reactive Protein NT-Pro-B Natriuret Pep Total Protein Albumin LDL Cholesterol Direct Vitamin B12 Vancomycin Trough Crossmatch 11/06/21 11/06/21 11/06/21 05:50 15:50 15:50 WBC 25.5 H RBC 3.62 L Hgb 8.0 L Hct 27.5 L MCV 76 L MCH 22 L MCHC 29 L RDW 19.6 H Plt Count Seg Neuts % (Manual) 92.0 H Lymphocytes % (Manual) 5.0 L Seg Neutrophils # Man 23.5 H Lymphocytes # (Manual) Monocytes # (Manual) PT INR D-Dimer ABG pH 7.305 L ABG pO2 ABG HCO3 15.8 L ABG O2 Saturation ABG Base Excess -9.6 L ABG Hemoglobin 8.6 L Oxyhemoglobin 94.6 L Sodium Potassium Chloride 113.9 H Carbon Dioxide 17 L BUN 56 H Creatinine Glucose 114 H POC Glucose Lactic Acid Calcium 7.9 L Phosphorus Magnesium AST 1410 H ALT 934 H Alkaline Phosphatase 142 H Lactate Dehydrogenase Troponin T C-Reactive Protein NT-Pro-B Natriuret Pep Total Protein 5.0 L Albumin 2.6 L LDL Cholesterol Direct Vitamin B12 Vancomycin Trough Crossmatch 11/07/21 11/07/21 11/07/21 03:30 04:50 08:07 WBC RBC Hgb Hct MCV MCH MCHC RDW Plt Count Seg Neuts % (Manual) Lymphocytes % (Manual) Seg Neutrophils # Man Lymphocytes # (Manual) Monocytes # (Manual) PT INR D-Dimer ABG pH ABG pO2 296.9 H ABG HCO3 18.1 L ABG O2 Saturation 99.5 H ABG Base Excess -5.9 L ABG Hemoglobin 7.6 L Oxyhemoglobin Sodium Potassium Chloride Carbon Dioxide BUN Creatinine Glucose POC Glucose 106 H 108 H Lactic Acid Calcium Phosphorus Magnesium AST ALT Alkaline Phosphatase Lactate Dehydrogenase Troponin T C-Reactive Protein NT-Pro-B Natriuret Pep Total Protein Albumin LDL Cholesterol Direct Vitamin B12 Vancomycin Trough Crossmatch 11/08/21 11/08/21 11/08/21 03:10 18:05 23:43 WBC RBC Hgb Hct MCV MCH MCHC RDW Plt Count Seg Neuts % (Manual) Lymphocytes % (Manual) Seg Neutrophils # Man Lymphocytes # (Manual) Monocytes # (Manual) PT INR D-Dimer ABG pH ABG pO2 127.4 H ABG HCO3 ABG O2 Saturation ABG Base Excess -3.4 L ABG Hemoglobin 7.4 L Oxyhemoglobin Sodium Potassium Chloride Carbon Dioxide BUN Creatinine Glucose POC Glucose 113 H 141 H Lactic Acid Calcium Phosphorus Magnesium AST ALT Alkaline Phosphatase Lactate Dehydrogenase Troponin T C-Reactive Protein NT-Pro-B Natriuret Pep Total Protein Albumin LDL Cholesterol Direct Vitamin B12 Vancomycin Trough Crossmatch 11/08/21 11/08/21 11/09/21 Unknown Unknown 02:00 WBC 14.5 H RBC 3.35 L Hgb 7.5 L 8.1 L Hct 25.4 L 27.6 L MCV 76 L 76 L MCH 23 L 22 L MCHC RDW 19.9 H 19.9 H Plt Count Seg Neuts % (Manual) Lymphocytes % (Manual) Seg Neutrophils # Man Lymphocytes # (Manual) Monocytes # (Manual) PT INR D-Dimer ABG pH ABG pO2 ABG HCO3 ABG O2 Saturation ABG Base Excess ABG Hemoglobin Oxyhemoglobin Sodium 154 H D Potassium 3.3 L Chloride 120.7 H Carbon Dioxide 20 L BUN 38 H Creatinine Glucose POC Glucose Lactic Acid Calcium 8.3 L Phosphorus Magnesium AST ALT Alkaline Phosphatase Lactate Dehydrogenase Troponin T C-Reactive Protein NT-Pro-B Natriuret Pep Total Protein Albumin LDL Cholesterol Direct Vitamin B12 Vancomycin Trough Crossmatch 11/09/21 11/09/21 11/09/21 02:00 02:31 05:12 WBC RBC Hgb Hct MCV MCH MCHC RDW Plt Count Seg Neuts % (Manual) Lymphocytes % (Manual) Seg Neutrophils # Man Lymphocytes # (Manual) Monocytes # (Manual) PT INR D-Dimer ABG pH 7.479 H ABG pO2 121.3 H ABG HCO3 ABG O2 Saturation ABG Base Excess ABG Hemoglobin 7.3 L Oxyhemoglobin Sodium Potassium Chloride 112.5 H Carbon Dioxide BUN 33 H Creatinine Glucose 161 H POC Glucose 135 H Lactic Acid Calcium Phosphorus Magnesium AST 251 H ALT 481 H Alkaline Phosphatase Lactate Dehydrogenase Troponin T C-Reactive Protein NT-Pro-B Natriuret Pep Total Protein 5.0 L Albumin 2.8 L LDL Cholesterol Direct Vitamin B12 Vancomycin Trough Crossmatch 11/09/21 11/09/21 11/09/21 11:33 16:32 23:28 WBC RBC Hgb Hct MCV MCH MCHC RDW Plt Count Seg Neuts % (Manual) Lymphocytes % (Manual) Seg Neutrophils # Man Lymphocytes # (Manual) Monocytes # (Manual) PT INR D-Dimer ABG pH ABG pO2 ABG HCO3 ABG O2 Saturation ABG Base Excess ABG Hemoglobin Oxyhemoglobin Sodium Potassium Chloride Carbon Dioxide BUN Creatinine Glucose POC Glucose 132 H 133 H 143 H Lactic Acid Calcium Phosphorus Magnesium AST ALT Alkaline Phosphatase Lactate Dehydrogenase Troponin T C-Reactive Protein NT-Pro-B Natriuret Pep Total Protein Albumin LDL Cholesterol Direct Vitamin B12 Vancomycin Trough Crossmatch 11/10/21 11/10/21 11/10/21 04:00 04:00 05:35 WBC 16.0 H RBC 3.61 L Hgb 8.0 L Hct 27.1 L MCV 75 L MCH 22 L MCHC RDW 20.4 H Plt Count Seg Neuts % (Manual) Lymphocytes % (Manual) Seg Neutrophils # Man Lymphocytes # (Manual) Monocytes # (Manual) PT INR D-Dimer ABG pH ABG pO2 ABG HCO3 ABG O2 Saturation ABG Base Excess ABG Hemoglobin Oxyhemoglobin Sodium 149 H Potassium Chloride 114.1 H Carbon Dioxide BUN 31 H Creatinine Glucose 148 H POC Glucose 132 H Lactic Acid Calcium 8.2 L Phosphorus Magnesium AST ALT Alkaline Phosphatase Lactate Dehydrogenase Troponin T C-Reactive Protein NT-Pro-B Natriuret Pep Total Protein Albumin LDL Cholesterol Direct Vitamin B12 Vancomycin Trough Crossmatch 11/10/21 11/10/21 11/10/21 11:31 14:08 15:35 WBC RBC Hgb Hct MCV MCH MCHC RDW Plt Count Seg Neuts % (Manual) Lymphocytes % (Manual) Seg Neutrophils # Man Lymphocytes # (Manual) Monocytes # (Manual) PT INR D-Dimer ABG pH ABG pO2 126.6 H ABG HCO3 ABG O2 Saturation ABG Base Excess ABG Hemoglobin 7.4 L Oxyhemoglobin Sodium Potassium Chloride Carbon Dioxide BUN Creatinine Glucose POC Glucose 147 H Lactic Acid Calcium Phosphorus Magnesium AST ALT Alkaline Phosphatase Lactate Dehydrogenase Troponin T C-Reactive Protein NT-Pro-B Natriuret Pep Total Protein Albumin LDL Cholesterol Direct Vitamin B12 1823 H Vancomycin Trough Crossmatch 11/10/21 11/11/21 11/11/21 17:53 00:55 04:28 WBC RBC Hgb Hct MCV MCH MCHC RDW Plt Count Seg Neuts % (Manual) Lymphocytes % (Manual) Seg Neutrophils # Man Lymphocytes # (Manual) Monocytes # (Manual) PT INR D-Dimer ABG pH ABG pO2 ABG HCO3 ABG O2 Saturation ABG Base Excess ABG Hemoglobin Oxyhemoglobin Sodium 149 H Potassium Chloride 112.2 H Carbon Dioxide BUN 34 H Creatinine Glucose 148 H POC Glucose 140 H 145 H Lactic Acid Calcium 7.9 L Phosphorus Magnesium AST 53 H ALT 203 H Alkaline Phosphatase Lactate Dehydrogenase Troponin T C-Reactive Protein NT-Pro-B Natriuret Pep Total Protein 4.9 L Albumin 2.6 L LDL Cholesterol Direct Vitamin B12 Vancomycin Trough Crossmatch 11/11/21 11/11/21 11/11/21 04:28 04:28 05:28 WBC 20.9 H RBC 3.47 L Hgb 7.5 L Hct 26.0 L MCV 75 L MCH 22 L MCHC 29 L RDW 21.6 H Plt Count 132 L Seg Neuts % (Manual) Lymphocytes % (Manual) Seg Neutrophils # Man Lymphocytes # (Manual) Monocytes # (Manual) PT INR D-Dimer 2655.00 H ABG pH ABG pO2 ABG HCO3 ABG O2 Saturation ABG Base Excess ABG Hemoglobin Oxyhemoglobin Sodium Potassium Chloride Carbon Dioxide BUN Creatinine Glucose POC Glucose 154 H Lactic Acid Calcium Phosphorus Magnesium AST ALT Alkaline Phosphatase Lactate Dehydrogenase Troponin T C-Reactive Protein NT-Pro-B Natriuret Pep Total Protein Albumin LDL Cholesterol Direct Vitamin B12 Vancomycin Trough Crossmatch 11/11/21 11/11/21 11/12/21 12:38 18:13 00:14 WBC RBC Hgb Hct MCV MCH MCHC RDW Plt Count Seg Neuts % (Manual) Lymphocytes % (Manual) Seg Neutrophils # Man Lymphocytes # (Manual) Monocytes # (Manual) PT INR D-Dimer ABG pH ABG pO2 ABG HCO3 ABG O2 Saturation ABG Base Excess ABG Hemoglobin Oxyhemoglobin Sodium Potassium Chloride Carbon Dioxide BUN Creatinine Glucose POC Glucose 137 H 108 H 137 H Lactic Acid Calcium Phosphorus Magnesium AST ALT Alkaline Phosphatase Lactate Dehydrogenase Troponin T C-Reactive Protein NT-Pro-B Natriuret Pep Total Protein Albumin LDL Cholesterol Direct Vitamin B12 Vancomycin Trough Crossmatch 11/12/21 11/12/21 11/12/21 05:40 06:24 11:12 WBC RBC Hgb Hct MCV MCH MCHC RDW Plt Count Seg Neuts % (Manual) Lymphocytes % (Manual) Seg Neutrophils # Man Lymphocytes # (Manual) Monocytes # (Manual) PT INR D-Dimer ABG pH 7.586 H ABG pO2 150.6 H ABG HCO3 27.2 H ABG O2 Saturation 99.1 H ABG Base Excess 5.2 H ABG Hemoglobin 7.5 L Oxyhemoglobin Sodium Potassium Chloride Carbon Dioxide BUN Creatinine Glucose POC Glucose 132 H 140 H Lactic Acid Calcium Phosphorus Magnesium AST ALT Alkaline Phosphatase Lactate Dehydrogenase Troponin T C-Reactive Protein NT-Pro-B Natriuret Pep Total Protein Albumin LDL Cholesterol Direct Vitamin B12 Vancomycin Trough Crossmatch 11/12/21 11/12/21 11/12/21 14:50 14:50 17:13 WBC 19.8 H RBC 3.27 L Hgb 7.1 L Hct 24.5 L MCV 75 L MCH 22 L MCHC 29 L RDW 22.3 H Plt Count Seg Neuts % (Manual) Lymphocytes % (Manual) Seg Neutrophils # Man Lymphocytes # (Manual) Monocytes # (Manual) PT INR D-Dimer ABG pH ABG pO2 ABG HCO3 ABG O2 Saturation ABG Base Excess ABG Hemoglobin Oxyhemoglobin Sodium 150 H Potassium 3.3 L Chloride 112.0 H Carbon Dioxide BUN 40 H Creatinine Glucose 151 H POC Glucose 121 H Lactic Acid Calcium 7.4 L Phosphorus 1.70 L Magnesium 1.40 L AST ALT Alkaline Phosphatase Lactate Dehydrogenase Troponin T C-Reactive Protein NT-Pro-B Natriuret Pep Total Protein Albumin LDL Cholesterol Direct Vitamin B12 Vancomycin Trough Crossmatch 11/12/21 11/13/21 11/13/21 23:19 05:34 06:30 WBC RBC Hgb Hct MCV MCH MCHC RDW Plt Count Seg Neuts % (Manual) Lymphocytes % (Manual) Seg Neutrophils # Man Lymphocytes # (Manual) Monocytes # (Manual) PT INR D-Dimer ABG pH ABG pO2 ABG HCO3 ABG O2 Saturation ABG Base Excess ABG Hemoglobin Oxyhemoglobin Sodium 149 H Potassium Chloride 60.0 L Carbon Dioxide BUN 40 H Creatinine Glucose 146 H POC Glucose 113 H 132 H Lactic Acid Calcium 7.3 L Phosphorus Magnesium 2.40 H AST ALT 72 H Alkaline Phosphatase Lactate Dehydrogenase Troponin T C-Reactive Protein NT-Pro-B Natriuret Pep Total Protein 5.2 L Albumin 2.2 L LDL Cholesterol Direct Vitamin B12 Vancomycin Trough Crossmatch 11/13/21 11/13/21 11/13/21 06:30 08:30 11:19 WBC 21.2 H RBC 3.12 L Hgb 6.8 L Hct 23.2 L MCV 74 L MCH 22 L MCHC 29 L RDW 22.2 H Plt Count 135 L Seg Neuts % (Manual) Lymphocytes % (Manual) Seg Neutrophils # Man Lymphocytes # (Manual) Monocytes # (Manual) PT INR D-Dimer ABG pH ABG pO2 ABG HCO3 ABG O2 Saturation ABG Base Excess ABG Hemoglobin Oxyhemoglobin Sodium Potassium Chloride Carbon Dioxide BUN Creatinine Glucose POC Glucose 136 H Lactic Acid Calcium Phosphorus Magnesium AST ALT Alkaline Phosphatase Lactate Dehydrogenase Troponin T C-Reactive Protein NT-Pro-B Natriuret Pep Total Protein Albumin LDL Cholesterol Direct Vitamin B12 Vancomycin Trough Crossmatch See Detail 11/13/21 11/14/21 11/14/21 18:21 00:01 04:46 WBC 20.0 H RBC 3.41 L Hgb 7.9 L Hct 26.8 L MCV MCH 23 L MCHC 29 L RDW 24.0 H Plt Count Seg Neuts % (Manual) Lymphocytes % (Manual) Seg Neutrophils # Man Lymphocytes # (Manual) Monocytes # (Manual) PT INR D-Dimer ABG pH ABG pO2 ABG HCO3 ABG O2 Saturation ABG Base Excess ABG Hemoglobin Oxyhemoglobin Sodium Potassium Chloride Carbon Dioxide BUN Creatinine Glucose POC Glucose 149 H 141 H Lactic Acid Calcium Phosphorus Magnesium AST ALT Alkaline Phosphatase Lactate Dehydrogenase Troponin T C-Reactive Protein NT-Pro-B Natriuret Pep Total Protein Albumin LDL Cholesterol Direct Vitamin B12 Vancomycin Trough Crossmatch 11/14/21 11/14/21 11/14/21 04:46 05:10 11:10 WBC RBC Hgb Hct MCV MCH MCHC RDW Plt Count Seg Neuts % (Manual) Lymphocytes % (Manual) Seg Neutrophils # Man Lymphocytes # (Manual) Monocytes # (Manual) PT INR D-Dimer ABG pH ABG pO2 ABG HCO3 ABG O2 Saturation ABG Base Excess ABG Hemoglobin Oxyhemoglobin Sodium 148 H Potassium Chloride 113.1 H Carbon Dioxide BUN 43 H Creatinine Glucose 140 H POC Glucose 132 H 133 H Lactic Acid Calcium 7.5 L Phosphorus Magnesium AST ALT Alkaline Phosphatase Lactate Dehydrogenase Troponin T C-Reactive Protein NT-Pro-B Natriuret Pep Total Protein Albumin LDL Cholesterol Direct Vitamin B12 Vancomycin Trough Crossmatch 11/14/21 11/14/21 11/14/21 16:14 17:48 23:23 WBC RBC Hgb Hct MCV MCH MCHC RDW Plt Count Seg Neuts % (Manual) Lymphocytes % (Manual) Seg Neutrophils # Man Lymphocytes # (Manual) Monocytes # (Manual) PT INR D-Dimer ABG pH ABG pO2 ABG HCO3 28.0 H ABG O2 Saturation ABG Base Excess 3.1 H ABG Hemoglobin 5.8 L Oxyhemoglobin 94.8 L Sodium Potassium Chloride Carbon Dioxide BUN Creatinine Glucose POC Glucose 130 H 136 H Lactic Acid Calcium Phosphorus Magnesium AST ALT Alkaline Phosphatase Lactate Dehydrogenase Troponin T C-Reactive Protein NT-Pro-B Natriuret Pep Total Protein Albumin LDL Cholesterol Direct Vitamin B12 Vancomycin Trough Crossmatch 11/15/21 11/15/21 11/15/21 05:20 05:50 05:50 WBC 19.9 H RBC 3.50 L Hgb 8.2 L Hct 27.9 L MCV MCH 23 L MCHC 29 L RDW 24.9 H Plt Count Seg Neuts % (Manual) Lymphocytes % (Manual) Seg Neutrophils # Man Lymphocytes # (Manual) Monocytes # (Manual) PT INR D-Dimer ABG pH ABG pO2 ABG HCO3 ABG O2 Saturation ABG Base Excess ABG Hemoglobin Oxyhemoglobin Sodium 149 H Potassium Chloride 112.0 H Carbon Dioxide BUN 48 H Creatinine Glucose 152 H POC Glucose 137 H Lactic Acid Calcium 7.9 L Phosphorus Magnesium AST ALT Alkaline Phosphatase Lactate Dehydrogenase Troponin T C-Reactive Protein NT-Pro-B Natriuret Pep Total Protein Albumin LDL Cholesterol Direct Vitamin B12 Vancomycin Trough Crossmatch 11/15/21 11/15/21 11/15/21 12:12 17:07 23:24 WBC RBC Hgb Hct MCV MCH MCHC RDW Plt Count Seg Neuts % (Manual) Lymphocytes % (Manual) Seg Neutrophils # Man Lymphocytes # (Manual) Monocytes # (Manual) PT INR D-Dimer ABG pH ABG pO2 ABG HCO3 ABG O2 Saturation ABG Base Excess ABG Hemoglobin Oxyhemoglobin Sodium Potassium Chloride Carbon Dioxide BUN Creatinine Glucose POC Glucose 114 H 135 H 123 H Lactic Acid Calcium Phosphorus Magnesium AST ALT Alkaline Phosphatase Lactate Dehydrogenase Troponin T C-Reactive Protein NT-Pro-B Natriuret Pep Total Protein Albumin LDL Cholesterol Direct Vitamin B12 Vancomycin Trough Crossmatch 11/16/21 11/16/21 11/16/21 05:21 10:00 10:00 WBC 21.7 H RBC 2.57 L Hgb 6.0 L Hct 20.2 L D MCV MCH 24 L MCHC RDW 26.3 H Plt Count Seg Neuts % (Manual) Lymphocytes % (Manual) Seg Neutrophils # Man Lymphocytes # (Manual) Monocytes # (Manual) PT INR D-Dimer ABG pH ABG pO2 ABG HCO3 ABG O2 Saturation ABG Base Excess ABG Hemoglobin Oxyhemoglobin Sodium 153 H Potassium Chloride 114.9 H Carbon Dioxide BUN 74 H Creatinine Glucose 155 H POC Glucose 127 H Lactic Acid Calcium 8.1 L Phosphorus Magnesium AST ALT Alkaline Phosphatase Lactate Dehydrogenase Troponin T C-Reactive Protein NT-Pro-B Natriuret Pep Total Protein Albumin LDL Cholesterol Direct Vitamin B12 Vancomycin Trough Crossmatch 11/16/21 11/16/21 11/16/21 11:34 14:00 15:25 WBC 17.2 H RBC 2.08 L Hgb 4.7 L* Hct 16.2 L* MCV 78 L MCH 23 L MCHC 29 L RDW 26.0 H Plt Count Seg Neuts % (Manual) 87.0 H Lymphocytes % (Manual) 8.0 L Seg Neutrophils # Man 15.0 H Lymphocytes # (Manual) Monocytes # (Manual) 0.9 H PT INR D-Dimer ABG pH ABG pO2 ABG HCO3 ABG O2 Saturation ABG Base Excess ABG Hemoglobin Oxyhemoglobin Sodium Potassium Chloride Carbon Dioxide BUN Creatinine Glucose POC Glucose 131 H Lactic Acid Calcium Phosphorus Magnesium AST ALT Alkaline Phosphatase Lactate Dehydrogenase Troponin T C-Reactive Protein NT-Pro-B Natriuret Pep Total Protein Albumin LDL Cholesterol Direct Vitamin B12 Vancomycin Trough Crossmatch See Detail 11/16/21 11/16/21 11/16/21 15:25 17:21 22:43 WBC RBC Hgb 8.6 L D Hct 27.7 L D MCV MCH MCHC RDW Plt Count Seg Neuts % (Manual) Lymphocytes % (Manual) Seg Neutrophils # Man Lymphocytes # (Manual) Monocytes # (Manual) PT INR D-Dimer ABG pH ABG pO2 ABG HCO3 ABG O2 Saturation ABG Base Excess ABG Hemoglobin Oxyhemoglobin Sodium 148 H Potassium Chloride 113.2 H Carbon Dioxide BUN 84 H Creatinine Glucose 164 H POC Glucose 124 H Lactic Acid Calcium 7.6 L Phosphorus Magnesium AST ALT Alkaline Phosphatase Lactate Dehydrogenase Troponin T C-Reactive Protein NT-Pro-B Natriuret Pep Total Protein Albumin LDL Cholesterol Direct Vitamin B12 Vancomycin Trough Crossmatch 11/16/21 11/17/21 11/17/21 23:07 05:33 05:56 WBC 25.1 H RBC 3.47 L Hgb 8.7 L Hct 28.5 L MCV MCH 25 L MCHC RDW 22.3 H Plt Count Seg Neuts % (Manual) Lymphocytes % (Manual) Seg Neutrophils # Man Lymphocytes # (Manual) Monocytes # (Manual) PT INR D-Dimer ABG pH ABG pO2 ABG HCO3 ABG O2 Saturation ABG Base Excess ABG Hemoglobin Oxyhemoglobin Sodium Potassium Chloride Carbon Dioxide BUN Creatinine Glucose POC Glucose 128 H 133 H Lactic Acid Calcium Phosphorus Magnesium AST ALT Alkaline Phosphatase Lactate Dehydrogenase Troponin T C-Reactive Protein NT-Pro-B Natriuret Pep Total Protein Albumin LDL Cholesterol Direct Vitamin B12 Vancomycin Trough Crossmatch 11/17/21 11/17/21 11/17/21 05:56 11:00 11:55 WBC RBC Hgb 8.3 L Hct 26.9 L MCV MCH MCHC RDW Plt Count Seg Neuts % (Manual) Lymphocytes % (Manual) Seg Neutrophils # Man Lymphocytes # (Manual) Monocytes # (Manual) PT INR D-Dimer ABG pH ABG pO2 ABG HCO3 ABG O2 Saturation ABG Base Excess ABG Hemoglobin Oxyhemoglobin Sodium 151 H Potassium Chloride 113.6 H Carbon Dioxide BUN 85 H Creatinine Glucose 132 H POC Glucose 121 H Lactic Acid Calcium 7.8 L Phosphorus Magnesium AST ALT Alkaline Phosphatase Lactate Dehydrogenase Troponin T C-Reactive Protein NT-Pro-B Natriuret Pep Total Protein 5.1 L Albumin 2.2 L LDL Cholesterol Direct Vitamin B12 Vancomycin Trough Crossmatch 11/17/21 11/17/21 11/18/21 18:04 18:55 00:26 WBC RBC Hgb 7.5 L 7.1 L Hct 24.8 L 23.6 L MCV MCH MCHC RDW Plt Count Seg Neuts % (Manual) Lymphocytes % (Manual) Seg Neutrophils # Man Lymphocytes # (Manual) Monocytes # (Manual) PT INR D-Dimer ABG pH ABG pO2 ABG HCO3 ABG O2 Saturation ABG Base Excess ABG Hemoglobin Oxyhemoglobin Sodium Potassium Chloride Carbon Dioxide BUN Creatinine Glucose POC Glucose 144 H Lactic Acid Calcium Phosphorus Magnesium AST ALT Alkaline Phosphatase Lactate Dehydrogenase Troponin T C-Reactive Protein NT-Pro-B Natriuret Pep Total Protein Albumin LDL Cholesterol Direct Vitamin B12 Vancomycin Trough Crossmatch 11/18/21 11/18/21 11/18/21 00:43 05:10 05:10 WBC 12.5 H RBC 2.39 L Hgb 6.1 L Hct 20.2 L MCV MCH 25 L MCHC RDW 23.2 H Plt Count Seg Neuts % (Manual) Lymphocytes % (Manual) Seg Neutrophils # Man Lymphocytes # (Manual) Monocytes # (Manual) PT INR D-Dimer ABG pH ABG pO2 ABG HCO3 ABG O2 Saturation ABG Base Excess ABG Hemoglobin Oxyhemoglobin Sodium 131 L D Potassium 2.9 L* D Chloride 97.8 L Carbon Dioxide BUN 58 H Creatinine Glucose 665 H* POC Glucose 139 H Lactic Acid Calcium 7.0 L Phosphorus 2.20 L D Magnesium 1.50 L AST ALT Alkaline Phosphatase Lactate Dehydrogenase Troponin T C-Reactive Protein NT-Pro-B Natriuret Pep Total Protein Albumin LDL Cholesterol Direct Vitamin B12 Vancomycin Trough Crossmatch 11/18/21 11/18/21 11/18/21 05:23 07:10 10:45 WBC RBC Hgb Hct MCV MCH MCHC RDW Plt Count Seg Neuts % (Manual) Lymphocytes % (Manual) Seg Neutrophils # Man Lymphocytes # (Manual) Monocytes # (Manual) PT INR D-Dimer ABG pH ABG pO2 ABG HCO3 ABG O2 Saturation ABG Base Excess ABG Hemoglobin Oxyhemoglobin Sodium 148 H D Potassium 3.1 L Chloride 111.9 H Carbon Dioxide BUN 63 H Creatinine Glucose 141 H POC Glucose 124 H Lactic Acid Calcium 8.1 L D Phosphorus Magnesium AST ALT Alkaline Phosphatase Lactate Dehydrogenase Troponin T C-Reactive Protein NT-Pro-B Natriuret Pep Total Protein Albumin LDL Cholesterol Direct Vitamin B12 Vancomycin Trough Crossmatch See Detail 11/18/21 11/19/21 11/19/21 11:57 00:19 04:55 WBC RBC 3.35 L Hgb 9.0 L 8.9 L Hct 28.3 L D 28.1 L MCV MCH 27 L MCHC RDW 20.3 H Plt Count Seg Neuts % (Manual) Lymphocytes % (Manual) Seg Neutrophils # Man Lymphocytes # (Manual) Monocytes # (Manual) PT INR D-Dimer ABG pH ABG pO2 ABG HCO3 ABG O2 Saturation ABG Base Excess ABG Hemoglobin Oxyhemoglobin Sodium Potassium Chloride Carbon Dioxide BUN Creatinine Glucose POC Glucose 119 H Lactic Acid Calcium Phosphorus Magnesium AST ALT Alkaline Phosphatase Lactate Dehydrogenase Troponin T C-Reactive Protein NT-Pro-B Natriuret Pep Total Protein Albumin LDL Cholesterol Direct Vitamin B12 Vancomycin Trough Crossmatch 11/19/21 11/19/21 11/20/21 04:55 05:42 00:55 WBC RBC Hgb 9.0 L Hct 28.6 L MCV MCH MCHC RDW Plt Count Seg Neuts % (Manual) Lymphocytes % (Manual) Seg Neutrophils # Man Lymphocytes # (Manual) Monocytes # (Manual) PT INR D-Dimer ABG pH ABG pO2 ABG HCO3 ABG O2 Saturation ABG Base Excess ABG Hemoglobin Oxyhemoglobin Sodium Potassium 3.5 L Chloride 108.6 H Carbon Dioxide BUN 47 H Creatinine Glucose 207 H POC Glucose 63 L Lactic Acid Calcium 7.1 L Phosphorus Magnesium AST ALT Alkaline Phosphatase Lactate Dehydrogenase Troponin T C-Reactive Protein NT-Pro-B Natriuret Pep Total Protein Albumin LDL Cholesterol Direct Vitamin B12 Vancomycin Trough Crossmatch 11/20/21 11/20/21 11/20/21 05:40 05:40 Unknown WBC RBC 3.40 L Hgb 9.1 L Hct 28.8 L MCV MCH 27 L MCHC RDW 20.7 H Plt Count Seg Neuts % (Manual) Lymphocytes % (Manual) Seg Neutrophils # Man Lymphocytes # (Manual) Monocytes # (Manual) PT INR D-Dimer ABG pH ABG pO2 ABG HCO3 ABG O2 Saturation ABG Base Excess -2.7 L ABG Hemoglobin 9.5 L Oxyhemoglobin 94.3 L Sodium Potassium 3.5 L Chloride 108.9 H Carbon Dioxide BUN 37 H Creatinine Glucose 117 H POC Glucose Lactic Acid Calcium 7.5 L Phosphorus Magnesium AST ALT Alkaline Phosphatase Lactate Dehydrogenase Troponin T C-Reactive Protein NT-Pro-B Natriuret Pep Total Protein Albumin LDL Cholesterol Direct Vitamin B12 Vancomycin Trough Crossmatch 11/21/21 11/21/21 11/21/21 04:30 04:30 16:00 WBC RBC 3.25 L Hgb 8.6 L Hct 28.1 L MCV MCH 26 L MCHC RDW 20.7 H Plt Count Seg Neuts % (Manual) Lymphocytes % (Manual) Seg Neutrophils # Man Lymphocytes # (Manual) Monocytes # (Manual) PT INR D-Dimer ABG pH ABG pO2 114.2 H ABG HCO3 ABG O2 Saturation ABG Base Excess ABG Hemoglobin 9.1 L Oxyhemoglobin Sodium 134 L Potassium Chloride Carbon Dioxide 20 L BUN 34 H Creatinine Glucose POC Glucose Lactic Acid Calcium 7.1 L Phosphorus Magnesium AST ALT Alkaline Phosphatase Lactate Dehydrogenase Troponin T C-Reactive Protein NT-Pro-B Natriuret Pep Total Protein Albumin LDL Cholesterol Direct Vitamin B12 Vancomycin Trough Crossmatch 11/22/21 11/22/21 11/22/21 07:07 07:07 23:54 WBC RBC 3.30 L Hgb 9.0 L Hct 28.5 L MCV MCH 27 L MCHC RDW 21.0 H Plt Count Seg Neuts % (Manual) Lymphocytes % (Manual) Seg Neutrophils # Man Lymphocytes # (Manual) Monocytes # (Manual) PT INR D-Dimer ABG pH ABG pO2 ABG HCO3 ABG O2 Saturation ABG Base Excess ABG Hemoglobin Oxyhemoglobin Sodium Potassium Chloride Carbon Dioxide BUN 32 H Creatinine Glucose 106 H POC Glucose 110 H Lactic Acid Calcium 7.5 L Phosphorus Magnesium AST ALT Alkaline Phosphatase Lactate Dehydrogenase Troponin T C-Reactive Protein NT-Pro-B Natriuret Pep Total Protein Albumin LDL Cholesterol Direct Vitamin B12 Vancomycin Trough Crossmatch 11/23/21 11/23/21 11/23/21 04:38 04:38 06:01 WBC RBC 3.23 L Hgb 8.8 L Hct 28.0 L MCV MCH 27 L MCHC RDW 21.3 H Plt Count Seg Neuts % (Manual) Lymphocytes % (Manual) Seg Neutrophils # Man Lymphocytes # (Manual) Monocytes # (Manual) PT INR D-Dimer ABG pH ABG pO2 ABG HCO3 ABG O2 Saturation ABG Base Excess ABG Hemoglobin Oxyhemoglobin Sodium 136 L Potassium Chloride Carbon Dioxide 20 L BUN 32 H Creatinine Glucose 109 H POC Glucose 115 H Lactic Acid Calcium 7.7 L Phosphorus Magnesium AST ALT Alkaline Phosphatase Lactate Dehydrogenase Troponin T C-Reactive Protein NT-Pro-B Natriuret Pep Total Protein Albumin LDL Cholesterol Direct Vitamin B12 Vancomycin Trough Crossmatch 11/23/21 11/24/21 11/24/21 11:40 00:03 04:13 WBC RBC 3.18 L Hgb 8.5 L Hct 27.5 L MCV MCH 27 L MCHC RDW 21.6 H Plt Count Seg Neuts % (Manual) Lymphocytes % (Manual) Seg Neutrophils # Man Lymphocytes # (Manual) Monocytes # (Manual) PT INR D-Dimer ABG pH ABG pO2 ABG HCO3 ABG O2 Saturation ABG Base Excess ABG Hemoglobin Oxyhemoglobin Sodium Potassium Chloride Carbon Dioxide BUN Creatinine Glucose POC Glucose 117 H 111 H Lactic Acid Calcium Phosphorus Magnesium AST ALT Alkaline Phosphatase Lactate Dehydrogenase Troponin T C-Reactive Protein NT-Pro-B Natriuret Pep Total Protein Albumin LDL Cholesterol Direct Vitamin B12 Vancomycin Trough Crossmatch 11/24/21 11/24/21 11/24/21 04:13 05:30 11:10 WBC RBC Hgb Hct MCV MCH MCHC RDW Plt Count Seg Neuts % (Manual) Lymphocytes % (Manual) Seg Neutrophils # Man Lymphocytes # (Manual) Monocytes # (Manual) PT INR D-Dimer ABG pH ABG pO2 ABG HCO3 ABG O2 Saturation ABG Base Excess ABG Hemoglobin Oxyhemoglobin Sodium Potassium Chloride Carbon Dioxide BUN 31 H Creatinine Glucose 101 H POC Glucose 115 H 107 H Lactic Acid Calcium 7.7 L Phosphorus Magnesium AST ALT Alkaline Phosphatase Lactate Dehydrogenase Troponin T C-Reactive Protein NT-Pro-B Natriuret Pep Total Protein Albumin LDL Cholesterol Direct Vitamin B12 Vancomycin Trough Crossmatch 11/24/21 11/24/21 11/25/21 16:34 17:57 05:12 WBC RBC 3.11 L Hgb 8.2 L Hct 26.6 L MCV MCH 26 L MCHC RDW 21.3 H Plt Count Seg Neuts % (Manual) Lymphocytes % (Manual) Seg Neutrophils # Man Lymphocytes # (Manual) Monocytes # (Manual) PT INR D-Dimer ABG pH ABG pO2 ABG HCO3 ABG O2 Saturation ABG Base Excess ABG Hemoglobin Oxyhemoglobin Sodium Potassium Chloride Carbon Dioxide BUN Creatinine Glucose POC Glucose 115 H 110 H Lactic Acid Calcium Phosphorus Magnesium AST ALT Alkaline Phosphatase Lactate Dehydrogenase Troponin T C-Reactive Protein NT-Pro-B Natriuret Pep Total Protein Albumin LDL Cholesterol Direct Vitamin B12 Vancomycin Trough Crossmatch 11/25/21 11/25/21 11/26/21 05:12 11:20 05:00 WBC RBC 3.30 L Hgb 8.8 L Hct 28.2 L MCV MCH 27 L MCHC RDW 20.7 H Plt Count Seg Neuts % (Manual) Lymphocytes % (Manual) Seg Neutrophils # Man Lymphocytes # (Manual) Monocytes # (Manual) PT INR D-Dimer ABG pH ABG pO2 ABG HCO3 ABG O2 Saturation ABG Base Excess ABG Hemoglobin Oxyhemoglobin Sodium Potassium Chloride Carbon Dioxide BUN 32 H Creatinine Glucose 118 H POC Glucose 118 H Lactic Acid Calcium 8.2 L Phosphorus Magnesium AST ALT Alkaline Phosphatase Lactate Dehydrogenase Troponin T C-Reactive Protein NT-Pro-B Natriuret Pep Total Protein Albumin LDL Cholesterol Direct Vitamin B12 Vancomycin Trough Crossmatch 11/26/21 11/26/21 11/26/21 05:00 05:00 05:44 WBC RBC Hgb Hct MCV MCH MCHC RDW Plt Count Seg Neuts % (Manual) Lymphocytes % (Manual) Seg Neutrophils # Man Lymphocytes # (Manual) Monocytes # (Manual) PT 16.9 H INR 1.24 H D-Dimer ABG pH ABG pO2 ABG HCO3 ABG O2 Saturation ABG Base Excess ABG Hemoglobin Oxyhemoglobin Sodium Potassium Chloride Carbon Dioxide BUN 31 H Creatinine Glucose 104 H POC Glucose 110 H Lactic Acid Calcium 7.9 L Phosphorus Magnesium AST ALT Alkaline Phosphatase Lactate Dehydrogenase Troponin T C-Reactive Protein NT-Pro-B Natriuret Pep Total Protein Albumin LDL Cholesterol Direct Vitamin B12 Vancomycin Trough Crossmatch 11/26/21 11/27/21 11/27/21 23:55 07:40 07:40 WBC RBC 3.18 L Hgb 8.5 L Hct 27.0 L MCV MCH 27 L MCHC RDW 21.2 H Plt Count Seg Neuts % (Manual) Lymphocytes % (Manual) Seg Neutrophils # Man Lymphocytes # (Manual) Monocytes # (Manual) PT INR D-Dimer ABG pH ABG pO2 ABG HCO3 ABG O2 Saturation ABG Base Excess ABG Hemoglobin Oxyhemoglobin Sodium Potassium Chloride Carbon Dioxide BUN 27 H Creatinine Glucose 112 H POC Glucose 63 L Lactic Acid Calcium 7.6 L Phosphorus Magnesium AST ALT Alkaline Phosphatase Lactate Dehydrogenase Troponin T C-Reactive Protein NT-Pro-B Natriuret Pep Total Protein Albumin LDL Cholesterol Direct Vitamin B12 Vancomycin Trough Crossmatch 11/27/21 11/27/21 11/27/21 12:04 13:40 13:40 WBC RBC 3.31 L Hgb 8.7 L Hct 28.0 L MCV MCH 26 L MCHC RDW 20.7 H Plt Count Seg Neuts % (Manual) Lymphocytes % (Manual) Seg Neutrophils # Man Lymphocytes # (Manual) Monocytes # (Manual) PT INR D-Dimer ABG pH ABG pO2 ABG HCO3 ABG O2 Saturation ABG Base Excess ABG Hemoglobin Oxyhemoglobin Sodium 136 L Potassium Chloride Carbon Dioxide BUN 25 H Creatinine Glucose 127 H POC Glucose 109 H Lactic Acid Calcium 7.6 L Phosphorus Magnesium 1.40 L AST ALT Alkaline Phosphatase Lactate Dehydrogenase Troponin T C-Reactive Protein NT-Pro-B Natriuret Pep Total Protein Albumin LDL Cholesterol Direct Vitamin B12 Vancomycin Trough Crossmatch 11/27/21 11/27/21 11/28/21 17:44 23:33 12:20 WBC RBC Hgb Hct MCV MCH MCHC RDW Plt Count Seg Neuts % (Manual) Lymphocytes % (Manual) Seg Neutrophils # Man Lymphocytes # (Manual) Monocytes # (Manual) PT INR D-Dimer ABG pH ABG pO2 ABG HCO3 ABG O2 Saturation ABG Base Excess ABG Hemoglobin Oxyhemoglobin Sodium Potassium Chloride Carbon Dioxide BUN Creatinine Glucose POC Glucose 107 H 108 H 114 H Lactic Acid Calcium Phosphorus Magnesium AST ALT Alkaline Phosphatase Lactate Dehydrogenase Troponin T C-Reactive Protein NT-Pro-B Natriuret Pep Total Protein Albumin LDL Cholesterol Direct Vitamin B12 Vancomycin Trough Crossmatch 11/29/21 11/29/21 11/29/21 00:09 03:20 03:20 WBC RBC 3.05 L Hgb 8.2 L Hct 25.8 L MCV MCH 27 L MCHC RDW 20.9 H Plt Count Seg Neuts % (Manual) Lymphocytes % (Manual) Seg Neutrophils # Man Lymphocytes # (Manual) Monocytes # (Manual) PT INR D-Dimer ABG pH ABG pO2 ABG HCO3 ABG O2 Saturation ABG Base Excess ABG Hemoglobin Oxyhemoglobin Sodium 133 L Potassium Chloride Carbon Dioxide BUN 24 H Creatinine Glucose 137 H POC Glucose 134 H Lactic Acid Calcium 7.4 L Phosphorus Magnesium AST ALT Alkaline Phosphatase Lactate Dehydrogenase Troponin T C-Reactive Protein NT-Pro-B Natriuret Pep Total Protein Albumin LDL Cholesterol Direct Vitamin B12 Vancomycin Trough Crossmatch 11/29/21 11/29/21 11/29/21 05:38 11:39 17:11 WBC RBC Hgb Hct MCV MCH MCHC RDW Plt Count Seg Neuts % (Manual) Lymphocytes % (Manual) Seg Neutrophils # Man Lymphocytes # (Manual) Monocytes # (Manual) PT INR D-Dimer ABG pH ABG pO2 ABG HCO3 ABG O2 Saturation ABG Base Excess ABG Hemoglobin Oxyhemoglobin Sodium Potassium Chloride Carbon Dioxide BUN Creatinine Glucose POC Glucose 117 H 143 H 124 H Lactic Acid Calcium Phosphorus Magnesium AST ALT Alkaline Phosphatase Lactate Dehydrogenase Troponin T C-Reactive Protein NT-Pro-B Natriuret Pep Total Protein Albumin LDL Cholesterol Direct Vitamin B12 Vancomycin Trough Crossmatch 11/29/21 11/30/21 11/30/21 20:15 05:40 05:40 WBC 12.6 H RBC 3.41 L Hgb 9.1 L Hct 28.9 L MCV MCH 27 L MCHC RDW 20.4 H Plt Count Seg Neuts % (Manual) Lymphocytes % (Manual) Seg Neutrophils # Man Lymphocytes # (Manual) Monocytes # (Manual) PT INR D-Dimer ABG pH ABG pO2 ABG HCO3 ABG O2 Saturation ABG Base Excess ABG Hemoglobin Oxyhemoglobin Sodium Potassium Chloride Carbon Dioxide BUN 24 H Creatinine Glucose 131 H POC Glucose Lactic Acid Calcium 7.6 L Phosphorus Magnesium AST ALT Alkaline Phosphatase Lactate Dehydrogenase Troponin T 0.045 H C-Reactive Protein NT-Pro-B Natriuret Pep Total Protein Albumin LDL Cholesterol Direct 25 L Vitamin B12 Vancomycin Trough Crossmatch 11/30/21 11/30/21 12/01/21 11:29 16:51 05:00 WBC RBC 2.97 L Hgb 8.0 L Hct 25.0 L MCV MCH 27 L MCHC RDW 20.8 H Plt Count Seg Neuts % (Manual) Lymphocytes % (Manual) Seg Neutrophils # Man Lymphocytes # (Manual) Monocytes # (Manual) PT INR D-Dimer ABG pH ABG pO2 ABG HCO3 ABG O2 Saturation ABG Base Excess ABG Hemoglobin Oxyhemoglobin Sodium Potassium Chloride Carbon Dioxide BUN Creatinine Glucose POC Glucose 123 H 114 H Lactic Acid Calcium Phosphorus Magnesium AST ALT Alkaline Phosphatase Lactate Dehydrogenase Troponin T C-Reactive Protein NT-Pro-B Natriuret Pep Total Protein Albumin LDL Cholesterol Direct Vitamin B12 Vancomycin Trough Crossmatch 12/01/21 12/01/21 12/01/21 05:00 05:25 11:54 WBC RBC Hgb Hct MCV MCH MCHC RDW Plt Count Seg Neuts % (Manual) Lymphocytes % (Manual) Seg Neutrophils # Man Lymphocytes # (Manual) Monocytes # (Manual) PT INR D-Dimer ABG pH ABG pO2 ABG HCO3 ABG O2 Saturation ABG Base Excess ABG Hemoglobin Oxyhemoglobin Sodium 136 L Potassium Chloride Carbon Dioxide BUN 24 H Creatinine Glucose 117 H POC Glucose 108 H 107 H Lactic Acid Calcium 7.5 L Phosphorus Magnesium 1.60 L AST ALT Alkaline Phosphatase Lactate Dehydrogenase Troponin T C-Reactive Protein NT-Pro-B Natriuret Pep Total Protein Albumin LDL Cholesterol Direct Vitamin B12 Vancomycin Trough Crossmatch 12/01/21 12/02/21 12/02/21 17:40 00:07 04:20 WBC RBC 2.92 L Hgb 7.7 L Hct 24.3 L MCV MCH 26 L MCHC RDW 20.5 H Plt Count Seg Neuts % (Manual) Lymphocytes % (Manual) Seg Neutrophils # Man Lymphocytes # (Manual) Monocytes # (Manual) PT INR D-Dimer ABG pH ABG pO2 ABG HCO3 ABG O2 Saturation ABG Base Excess ABG Hemoglobin Oxyhemoglobin Sodium Potassium Chloride Carbon Dioxide BUN Creatinine Glucose POC Glucose 123 H 110 H Lactic Acid Calcium Phosphorus Magnesium AST ALT Alkaline Phosphatase Lactate Dehydrogenase Troponin T C-Reactive Protein NT-Pro-B Natriuret Pep Total Protein Albumin LDL Cholesterol Direct Vitamin B12 Vancomycin Trough Crossmatch 12/02/21 12/02/21 12/02/21 04:20 11:17 18:20 WBC RBC Hgb Hct MCV MCH MCHC RDW Plt Count Seg Neuts % (Manual) Lymphocytes % (Manual) Seg Neutrophils # Man Lymphocytes # (Manual) Monocytes # (Manual) PT INR D-Dimer ABG pH ABG pO2 ABG HCO3 ABG O2 Saturation ABG Base Excess ABG Hemoglobin Oxyhemoglobin Sodium 135 L Potassium Chloride Carbon Dioxide BUN 26 H Creatinine Glucose 121 H POC Glucose 117 H 113 H Lactic Acid Calcium 7.4 L Phosphorus Magnesium AST ALT Alkaline Phosphatase Lactate Dehydrogenase Troponin T C-Reactive Protein NT-Pro-B Natriuret Pep Total Protein Albumin LDL Cholesterol Direct Vitamin B12 Vancomycin Trough Crossmatch 12/03/21 12/03/21 12/03/21 00:12 04:00 04:00 WBC RBC 2.99 L Hgb 7.8 L Hct 24.6 L MCV MCH 26 L MCHC RDW 20.2 H Plt Count Seg Neuts % (Manual) Lymphocytes % (Manual) Seg Neutrophils # Man Lymphocytes # (Manual) Monocytes # (Manual) PT INR D-Dimer ABG pH ABG pO2 ABG HCO3 ABG O2 Saturation ABG Base Excess ABG Hemoglobin Oxyhemoglobin Sodium 136 L Potassium Chloride Carbon Dioxide BUN 27 H Creatinine Glucose 133 H POC Glucose 121 H Lactic Acid Calcium 7.5 L Phosphorus Magnesium AST ALT Alkaline Phosphatase Lactate Dehydrogenase Troponin T C-Reactive Protein NT-Pro-B Natriuret Pep Total Protein Albumin LDL Cholesterol Direct Vitamin B12 Vancomycin Trough Crossmatch 12/03/21 12/03/21 12/03/21 06:30 11:13 16:00 WBC RBC Hgb Hct MCV MCH MCHC RDW Plt Count Seg Neuts % (Manual) Lymphocytes % (Manual) Seg Neutrophils # Man Lymphocytes # (Manual) Monocytes # (Manual) PT INR D-Dimer ABG pH ABG pO2 ABG HCO3 ABG O2 Saturation ABG Base Excess ABG Hemoglobin Oxyhemoglobin Sodium Potassium Chloride Carbon Dioxide BUN Creatinine Glucose POC Glucose 129 H 125 H 125 H Lactic Acid Calcium Phosphorus Magnesium AST ALT Alkaline Phosphatase Lactate Dehydrogenase Troponin T C-Reactive Protein NT-Pro-B Natriuret Pep Total Protein Albumin LDL Cholesterol Direct Vitamin B12 Vancomycin Trough Crossmatch 12/03/21 12/04/21 12/04/21 23:32 04:00 05:36 WBC RBC Hgb Hct MCV MCH MCHC RDW Plt Count Seg Neuts % (Manual) Lymphocytes % (Manual) Seg Neutrophils # Man Lymphocytes # (Manual) Monocytes # (Manual) PT INR D-Dimer ABG pH ABG pO2 ABG HCO3 ABG O2 Saturation ABG Base Excess ABG Hemoglobin Oxyhemoglobin Sodium Potassium 3.5 L Chloride Carbon Dioxide BUN 26 H Creatinine 0.5 L Glucose 151 H POC Glucose 133 H 142 H Lactic Acid Calcium 8.3 L Phosphorus Magnesium AST ALT Alkaline Phosphatase Lactate Dehydrogenase Troponin T C-Reactive Protein NT-Pro-B Natriuret Pep Total Protein Albumin LDL Cholesterol Direct Vitamin B12 Vancomycin Trough Crossmatch 12/04/21 12/04/21 12/05/21 11:24 15:58 04:36 WBC RBC Hgb Hct MCV MCH MCHC RDW Plt Count Seg Neuts % (Manual) Lymphocytes % (Manual) Seg Neutrophils # Man Lymphocytes # (Manual) Monocytes # (Manual) PT INR D-Dimer ABG pH ABG pO2 ABG HCO3 ABG O2 Saturation ABG Base Excess ABG Hemoglobin Oxyhemoglobin Sodium Potassium Chloride Carbon Dioxide BUN 21 H Creatinine 0.5 L Glucose 119 H POC Glucose 130 H 111 H Lactic Acid Calcium 8.3 L Phosphorus Magnesium AST ALT Alkaline Phosphatase Lactate Dehydrogenase Troponin T C-Reactive Protein NT-Pro-B Natriuret Pep Total Protein Albumin LDL Cholesterol Direct Vitamin B12 Vancomycin Trough Crossmatch 12/05/21 12/05/21 12/05/21 05:15 10:40 11:12 WBC RBC 2.98 L Hgb 8.1 L Hct 24.6 L MCV MCH 27 L MCHC RDW 20.8 H Plt Count Seg Neuts % (Manual) Lymphocytes % (Manual) Seg Neutrophils # Man Lymphocytes # (Manual) Monocytes # (Manual) PT INR D-Dimer ABG pH ABG pO2 ABG HCO3 ABG O2 Saturation ABG Base Excess ABG Hemoglobin Oxyhemoglobin Sodium Potassium Chloride Carbon Dioxide BUN Creatinine Glucose POC Glucose 107 H 110 H Lactic Acid Calcium Phosphorus Magnesium AST ALT Alkaline Phosphatase Lactate Dehydrogenase Troponin T C-Reactive Protein NT-Pro-B Natriuret Pep Total Protein Albumin LDL Cholesterol Direct Vitamin B12 Vancomycin Trough Crossmatch 12/05/21 12/06/21 12/06/21 23:39 04:25 04:25 WBC RBC 2.95 L Hgb 7.9 L Hct 24.7 L MCV MCH 27 L MCHC RDW 20.9 H Plt Count Seg Neuts % (Manual) Lymphocytes % (Manual) Seg Neutrophils # Man Lymphocytes # (Manual) Monocytes # (Manual) PT INR D-Dimer ABG pH ABG pO2 ABG HCO3 ABG O2 Saturation ABG Base Excess ABG Hemoglobin Oxyhemoglobin Sodium Potassium Chloride Carbon Dioxide BUN 22 H Creatinine 0.5 L Glucose 136 H POC Glucose 118 H Lactic Acid Calcium 8.2 L Phosphorus Magnesium AST ALT Alkaline Phosphatase Lactate Dehydrogenase Troponin T C-Reactive Protein NT-Pro-B Natriuret Pep Total Protein Albumin LDL Cholesterol Direct Vitamin B12 Vancomycin Trough Crossmatch 12/06/21 12/06/21 12/07/21 05:28 11:27 04:00 WBC RBC Hgb 7.2 L Hct 21.8 L MCV MCH MCHC RDW Plt Count Seg Neuts % (Manual) Lymphocytes % (Manual) Seg Neutrophils # Man Lymphocytes # (Manual) Monocytes # (Manual) PT INR D-Dimer ABG pH ABG pO2 ABG HCO3 ABG O2 Saturation ABG Base Excess ABG Hemoglobin Oxyhemoglobin Sodium Potassium Chloride Carbon Dioxide BUN Creatinine Glucose POC Glucose 142 H 126 H Lactic Acid Calcium Phosphorus Magnesium AST ALT Alkaline Phosphatase Lactate Dehydrogenase Troponin T C-Reactive Protein NT-Pro-B Natriuret Pep Total Protein Albumin LDL Cholesterol Direct Vitamin B12 Vancomycin Trough Crossmatch 12/07/21 12/07/21 12/07/21 04:00 05:30 11:12 WBC RBC Hgb Hct MCV MCH MCHC RDW Plt Count Seg Neuts % (Manual) Lymphocytes % (Manual) Seg Neutrophils # Man Lymphocytes # (Manual) Monocytes # (Manual) PT INR D-Dimer ABG pH ABG pO2 ABG HCO3 ABG O2 Saturation ABG Base Excess ABG Hemoglobin Oxyhemoglobin Sodium Potassium Chloride Carbon Dioxide BUN 22 H Creatinine Glucose 119 H POC Glucose 121 H 124 H Lactic Acid Calcium 8.0 L Phosphorus Magnesium AST ALT Alkaline Phosphatase Lactate Dehydrogenase Troponin T C-Reactive Protein NT-Pro-B Natriuret Pep Total Protein Albumin LDL Cholesterol Direct Vitamin B12 Vancomycin Trough Crossmatch 12/08/21 12/08/21 12/08/21 04:00 04:00 05:39 WBC RBC 2.81 L Hgb 7.7 L Hct 23.5 L MCV MCH MCHC RDW 21.2 H Plt Count Seg Neuts % (Manual) Lymphocytes % (Manual) Seg Neutrophils # Man Lymphocytes # (Manual) Monocytes # (Manual) PT INR D-Dimer ABG pH ABG pO2 ABG HCO3 ABG O2 Saturation ABG Base Excess ABG Hemoglobin Oxyhemoglobin Sodium 135 L Potassium Chloride Carbon Dioxide BUN 23 H Creatinine Glucose 109 H POC Glucose 112 H Lactic Acid Calcium Phosphorus Magnesium AST ALT Alkaline Phosphatase Lactate Dehydrogenase Troponin T C-Reactive Protein NT-Pro-B Natriuret Pep Total Protein Albumin LDL Cholesterol Direct Vitamin B12 Vancomycin Trough Crossmatch 12/08/21 12/09/21 12/09/21 11:03 04:20 04:20 WBC RBC 2.67 L Hgb 7.6 L Hct 22.1 L MCV MCH MCHC RDW 20.8 H Plt Count Seg Neuts % (Manual) Lymphocytes % (Manual) Seg Neutrophils # Man Lymphocytes # (Manual) Monocytes # (Manual) PT INR D-Dimer ABG pH ABG pO2 ABG HCO3 ABG O2 Saturation ABG Base Excess ABG Hemoglobin Oxyhemoglobin Sodium 135 L Potassium Chloride 97.8 L Carbon Dioxide BUN 26 H Creatinine Glucose 119 H POC Glucose 108 H Lactic Acid Calcium 7.7 L Phosphorus Magnesium AST ALT Alkaline Phosphatase Lactate Dehydrogenase Troponin T C-Reactive Protein NT-Pro-B Natriuret Pep Total Protein Albumin LDL Cholesterol Direct Vitamin B12 Vancomycin Trough Crossmatch 12/09/21 12/10/21 12/10/21 11:26 04:33 11:12 WBC RBC Hgb Hct MCV MCH MCHC RDW Plt Count Seg Neuts % (Manual) Lymphocytes % (Manual) Seg Neutrophils # Man Lymphocytes # (Manual) Monocytes # (Manual) PT INR D-Dimer ABG pH ABG pO2 ABG HCO3 ABG O2 Saturation ABG Base Excess ABG Hemoglobin Oxyhemoglobin Sodium 136 L Potassium Chloride Carbon Dioxide BUN 27 H Creatinine Glucose 117 H POC Glucose 110 H 117 H Lactic Acid Calcium 8.2 L Phosphorus Magnesium AST ALT Alkaline Phosphatase Lactate Dehydrogenase Troponin T C-Reactive Protein NT-Pro-B Natriuret Pep Total Protein Albumin LDL Cholesterol Direct Vitamin B12 Vancomycin Trough Crossmatch 12/10/21 12/10/21 12/11/21 16:02 23:31 04:35 WBC RBC 2.57 L Hgb 7.0 L Hct 21.4 L MCV MCH 27 L MCHC RDW 21.1 H Plt Count Seg Neuts % (Manual) Lymphocytes % (Manual) Seg Neutrophils # Man Lymphocytes # (Manual) Monocytes # (Manual) PT INR D-Dimer ABG pH ABG pO2 ABG HCO3 ABG O2 Saturation ABG Base Excess ABG Hemoglobin Oxyhemoglobin Sodium Potassium Chloride Carbon Dioxide BUN Creatinine Glucose POC Glucose 137 H 111 H Lactic Acid Calcium Phosphorus Magnesium AST ALT Alkaline Phosphatase Lactate Dehydrogenase Troponin T C-Reactive Protein NT-Pro-B Natriuret Pep Total Protein Albumin LDL Cholesterol Direct Vitamin B12 Vancomycin Trough Crossmatch 12/11/21 12/11/21 12/11/21 04:35 12:46 16:07 WBC RBC Hgb Hct MCV MCH MCHC RDW Plt Count Seg Neuts % (Manual) Lymphocytes % (Manual) Seg Neutrophils # Man Lymphocytes # (Manual) Monocytes # (Manual) PT INR D-Dimer ABG pH ABG pO2 ABG HCO3 ABG O2 Saturation ABG Base Excess ABG Hemoglobin Oxyhemoglobin Sodium 136 L Potassium Chloride Carbon Dioxide BUN 27 H Creatinine Glucose 112 H POC Glucose 115 H 111 H Lactic Acid Calcium 7.6 L Phosphorus Magnesium AST ALT Alkaline Phosphatase Lactate Dehydrogenase Troponin T C-Reactive Protein NT-Pro-B Natriuret Pep Total Protein Albumin LDL Cholesterol Direct Vitamin B12 Vancomycin Trough Crossmatch 12/11/21 12/12/21 12/12/21 23:42 04:30 04:30 WBC RBC 2.60 L Hgb 7.1 L Hct 21.5 L MCV MCH 27 L MCHC RDW 20.3 H Plt Count Seg Neuts % (Manual) Lymphocytes % (Manual) Seg Neutrophils # Man Lymphocytes # (Manual) Monocytes # (Manual) PT INR D-Dimer ABG pH ABG pO2 ABG HCO3 ABG O2 Saturation ABG Base Excess ABG Hemoglobin Oxyhemoglobin Sodium 135 L Potassium Chloride 97.9 L Carbon Dioxide BUN 26 H Creatinine 0.5 L Glucose 138 H POC Glucose 115 H Lactic Acid Calcium 8.2 L Phosphorus Magnesium AST ALT Alkaline Phosphatase Lactate Dehydrogenase Troponin T C-Reactive Protein NT-Pro-B Natriuret Pep Total Protein Albumin LDL Cholesterol Direct Vitamin B12 Vancomycin Trough Crossmatch 12/12/21 12/12/21 12/12/21 04:30 05:10 11:51 WBC RBC Hgb Hct MCV MCH MCHC RDW Plt Count Seg Neuts % (Manual) Lymphocytes % (Manual) Seg Neutrophils # Man Lymphocytes # (Manual) Monocytes # (Manual) PT INR D-Dimer ABG pH ABG pO2 ABG HCO3 ABG O2 Saturation ABG Base Excess ABG Hemoglobin Oxyhemoglobin Sodium Potassium Chloride Carbon Dioxide BUN Creatinine Glucose POC Glucose 119 H 119 H Lactic Acid Calcium Phosphorus Magnesium AST ALT Alkaline Phosphatase Lactate Dehydrogenase Troponin T C-Reactive Protein NT-Pro-B Natriuret Pep Total Protein Albumin LDL Cholesterol Direct Vitamin B12 Vancomycin Trough Crossmatch See Detail 12/13/21 12/13/21 12/13/21 00:52 04:00 04:00 WBC RBC 2.73 L Hgb 7.4 L Hct 22.8 L MCV MCH 27 L MCHC RDW 20.5 H Plt Count Seg Neuts % (Manual) Lymphocytes % (Manual) Seg Neutrophils # Man Lymphocytes # (Manual) Monocytes # (Manual) PT INR D-Dimer ABG pH ABG pO2 ABG HCO3 ABG O2 Saturation ABG Base Excess ABG Hemoglobin Oxyhemoglobin Sodium 134 L Potassium Chloride 96.7 L Carbon Dioxide BUN 23 H Creatinine 0.5 L Glucose 131 H POC Glucose 131 H Lactic Acid Calcium 8.1 L Phosphorus Magnesium AST ALT Alkaline Phosphatase Lactate Dehydrogenase Troponin T C-Reactive Protein NT-Pro-B Natriuret Pep Total Protein Albumin LDL Cholesterol Direct Vitamin B12 Vancomycin Trough Crossmatch 12/13/21 12/13/21 12/13/21 05:23 12:11 17:18 WBC RBC Hgb Hct MCV MCH MCHC RDW Plt Count Seg Neuts % (Manual) Lymphocytes % (Manual) Seg Neutrophils # Man Lymphocytes # (Manual) Monocytes # (Manual) PT INR D-Dimer ABG pH ABG pO2 ABG HCO3 ABG O2 Saturation ABG Base Excess ABG Hemoglobin Oxyhemoglobin Sodium Potassium Chloride Carbon Dioxide BUN Creatinine Glucose POC Glucose 121 H 143 H 148 H Lactic Acid Calcium Phosphorus Magnesium AST ALT Alkaline Phosphatase Lactate Dehydrogenase Troponin T C-Reactive Protein NT-Pro-B Natriuret Pep Total Protein Albumin LDL Cholesterol Direct Vitamin B12 Vancomycin Trough Crossmatch 12/14/21 12/14/21 12/14/21 00:54 04:20 04:20 WBC RBC 2.39 L Hgb 6.5 L Hct 20.3 L MCV MCH 27 L MCHC RDW 20.3 H Plt Count Seg Neuts % (Manual) Lymphocytes % (Manual) Seg Neutrophils # Man Lymphocytes # (Manual) Monocytes # (Manual) PT INR D-Dimer ABG pH ABG pO2 ABG HCO3 ABG O2 Saturation ABG Base Excess ABG Hemoglobin Oxyhemoglobin Sodium 130 L Potassium Chloride 93.5 L Carbon Dioxide BUN 25 H Creatinine Glucose 123 H POC Glucose 123 H Lactic Acid Calcium 8.0 L Phosphorus Magnesium AST ALT Alkaline Phosphatase Lactate Dehydrogenase Troponin T C-Reactive Protein NT-Pro-B Natriuret Pep Total Protein Albumin LDL Cholesterol Direct Vitamin B12 Vancomycin Trough Crossmatch 12/14/21 12/14/21 12/14/21 05:06 08:17 10:30 WBC RBC Hgb Hct MCV MCH MCHC RDW Plt Count Seg Neuts % (Manual) Lymphocytes % (Manual) Seg Neutrophils # Man Lymphocytes # (Manual) Monocytes # (Manual) PT INR D-Dimer ABG pH ABG pO2 ABG HCO3 ABG O2 Saturation ABG Base Excess ABG Hemoglobin Oxyhemoglobin Sodium Potassium Chloride Carbon Dioxide BUN Creatinine Glucose POC Glucose 131 H 119 H Lactic Acid Calcium Phosphorus Magnesium AST ALT Alkaline Phosphatase Lactate Dehydrogenase Troponin T C-Reactive Protein NT-Pro-B Natriuret Pep Total Protein Albumin LDL Cholesterol Direct Vitamin B12 Vancomycin Trough Crossmatch See Detail 12/14/21 12/14/21 12/14/21 12:15 16:37 23:27 WBC RBC Hgb Hct MCV MCH MCHC RDW Plt Count Seg Neuts % (Manual) Lymphocytes % (Manual) Seg Neutrophils # Man Lymphocytes # (Manual) Monocytes # (Manual) PT INR D-Dimer ABG pH ABG pO2 ABG HCO3 ABG O2 Saturation ABG Base Excess ABG Hemoglobin Oxyhemoglobin Sodium Potassium Chloride Carbon Dioxide BUN Creatinine Glucose POC Glucose 147 H 141 H 130 H Lactic Acid Calcium Phosphorus Magnesium AST ALT Alkaline Phosphatase Lactate Dehydrogenase Troponin T C-Reactive Protein NT-Pro-B Natriuret Pep Total Protein Albumin LDL Cholesterol Direct Vitamin B12 Vancomycin Trough Crossmatch 12/15/21 12/15/21 12/15/21 05:00 07:00 07:00 WBC 12.3 H RBC 3.27 L Hgb 8.8 L Hct 27.5 L D MCV MCH 27 L MCHC RDW 19.0 H Plt Count Seg Neuts % (Manual) Lymphocytes % (Manual) Seg Neutrophils # Man Lymphocytes # (Manual) Monocytes # (Manual) PT INR D-Dimer ABG pH ABG pO2 ABG HCO3 ABG O2 Saturation ABG Base Excess ABG Hemoglobin Oxyhemoglobin Sodium 134 L Potassium Chloride 95.7 L Carbon Dioxide BUN 28 H Creatinine Glucose 129 H POC Glucose 129 H Lactic Acid Calcium 8.2 L Phosphorus Magnesium AST ALT Alkaline Phosphatase Lactate Dehydrogenase Troponin T C-Reactive Protein NT-Pro-B Natriuret Pep Total Protein Albumin LDL Cholesterol Direct Vitamin B12 Vancomycin Trough Crossmatch 12/15/21 12/15/21 12/15/21 11:18 16:00 23:39 WBC RBC Hgb Hct MCV MCH MCHC RDW Plt Count Seg Neuts % (Manual) Lymphocytes % (Manual) Seg Neutrophils # Man Lymphocytes # (Manual) Monocytes # (Manual) PT INR D-Dimer ABG pH ABG pO2 ABG HCO3 ABG O2 Saturation ABG Base Excess ABG Hemoglobin Oxyhemoglobin Sodium Potassium Chloride Carbon Dioxide BUN Creatinine Glucose POC Glucose 139 H 137 H 146 H Lactic Acid Calcium Phosphorus Magnesium AST ALT Alkaline Phosphatase Lactate Dehydrogenase Troponin T C-Reactive Protein NT-Pro-B Natriuret Pep Total Protein Albumin LDL Cholesterol Direct Vitamin B12 Vancomycin Trough Crossmatch 12/16/21 12/16/21 12/16/21 05:24 10:21 10:21 WBC 15.3 H RBC 3.24 L Hgb 8.9 L Hct 27.7 L MCV MCH MCHC RDW 19.0 H Plt Count Seg Neuts % (Manual) Lymphocytes % (Manual) Seg Neutrophils # Man Lymphocytes # (Manual) Monocytes # (Manual) PT INR D-Dimer ABG pH ABG pO2 ABG HCO3 ABG O2 Saturation ABG Base Excess ABG Hemoglobin Oxyhemoglobin Sodium 131 L Potassium 3.5 L Chloride 92.7 L Carbon Dioxide BUN 36 H Creatinine Glucose 160 H POC Glucose 121 H Lactic Acid Calcium Phosphorus Magnesium 1.60 L AST ALT Alkaline Phosphatase Lactate Dehydrogenase Troponin T C-Reactive Protein NT-Pro-B Natriuret Pep Total Protein Albumin LDL Cholesterol Direct Vitamin B12 Vancomycin Trough Crossmatch 12/16/21 12/16/21 12/16/21 11:21 18:28 20:52 WBC RBC Hgb Hct MCV MCH MCHC RDW Plt Count Seg Neuts % (Manual) Lymphocytes % (Manual) Seg Neutrophils # Man Lymphocytes # (Manual) Monocytes # (Manual) PT INR D-Dimer ABG pH 7.479 H ABG pO2 79.3 L ABG HCO3 27.3 H ABG O2 Saturation ABG Base Excess 3.6 H ABG Hemoglobin 9.1 L Oxyhemoglobin 94.9 L Sodium Potassium Chloride Carbon Dioxide BUN Creatinine Glucose POC Glucose 153 H 132 H Lactic Acid Calcium Phosphorus Magnesium AST ALT Alkaline Phosphatase Lactate Dehydrogenase Troponin T C-Reactive Protein NT-Pro-B Natriuret Pep Total Protein Albumin LDL Cholesterol Direct Vitamin B12 Vancomycin Trough Crossmatch 12/16/21 12/17/21 12/17/21 23:30 04:25 04:25 WBC 12.3 H RBC 2.16 L Hgb 6.0 L Hct 18.1 L* D MCV MCH MCHC RDW 19.4 H Plt Count Seg Neuts % (Manual) Lymphocytes % (Manual) Seg Neutrophils # Man Lymphocytes # (Manual) Monocytes # (Manual) PT INR D-Dimer ABG pH ABG pO2 ABG HCO3 ABG O2 Saturation ABG Base Excess ABG Hemoglobin Oxyhemoglobin Sodium 132 L Potassium 3.2 L Chloride 112.0 H Carbon Dioxide BUN 32 H Creatinine Glucose 122 H POC Glucose 137 H Lactic Acid Calcium 6.8 L D Phosphorus Magnesium AST ALT Alkaline Phosphatase Lactate Dehydrogenase Troponin T C-Reactive Protein NT-Pro-B Natriuret Pep Total Protein Albumin LDL Cholesterol Direct Vitamin B12 Vancomycin Trough Crossmatch 12/17/21 12/17/21 12/17/21 05:30 11:49 14:45 WBC RBC Hgb 9.7 L D Hct MCV MCH MCHC RDW Plt Count Seg Neuts % (Manual) Lymphocytes % (Manual) Seg Neutrophils # Man Lymphocytes # (Manual) Monocytes # (Manual) PT INR D-Dimer ABG pH ABG pO2 ABG HCO3 ABG O2 Saturation ABG Base Excess ABG Hemoglobin Oxyhemoglobin Sodium Potassium Chloride Carbon Dioxide BUN Creatinine Glucose POC Glucose 137 H 143 H Lactic Acid Calcium Phosphorus Magnesium AST ALT Alkaline Phosphatase Lactate Dehydrogenase Troponin T C-Reactive Protein NT-Pro-B Natriuret Pep Total Protein Albumin LDL Cholesterol Direct Vitamin B12 Vancomycin Trough Crossmatch 12/17/21 12/18/21 12/18/21 17:01 05:04 05:04 WBC 13.8 H RBC 3.44 L Hgb 9.9 L Hct 28.8 L MCV MCH MCHC RDW 18.1 H Plt Count Seg Neuts % (Manual) Lymphocytes % (Manual) Seg Neutrophils # Man Lymphocytes # (Manual) Monocytes # (Manual) PT INR D-Dimer ABG pH ABG pO2 ABG HCO3 ABG O2 Saturation ABG Base Excess ABG Hemoglobin Oxyhemoglobin Sodium 132 L Potassium Chloride 97.4 L Carbon Dioxide BUN 38 H Creatinine Glucose 134 H POC Glucose 132 H Lactic Acid Calcium Phosphorus Magnesium AST ALT Alkaline Phosphatase Lactate Dehydrogenase Troponin T C-Reactive Protein NT-Pro-B Natriuret Pep Total Protein Albumin LDL Cholesterol Direct Vitamin B12 Vancomycin Trough Crossmatch 12/18/21 12/18/21 12/18/21 05:28 10:57 16:27 WBC RBC Hgb Hct MCV MCH MCHC RDW Plt Count Seg Neuts % (Manual) Lymphocytes % (Manual) Seg Neutrophils # Man Lymphocytes # (Manual) Monocytes # (Manual) PT INR D-Dimer ABG pH ABG pO2 ABG HCO3 ABG O2 Saturation ABG Base Excess ABG Hemoglobin Oxyhemoglobin Sodium Potassium Chloride Carbon Dioxide BUN Creatinine Glucose POC Glucose 118 H 132 H 130 H Lactic Acid Calcium Phosphorus Magnesium AST ALT Alkaline Phosphatase Lactate Dehydrogenase Troponin T C-Reactive Protein NT-Pro-B Natriuret Pep Total Protein Albumin LDL Cholesterol Direct Vitamin B12 Vancomycin Trough Crossmatch 12/19/21 12/19/21 12/19/21 00:02 04:41 04:41 WBC 16.0 H RBC 3.45 L Hgb 9.7 L Hct 29.1 L MCV MCH MCHC RDW 17.8 H Plt Count Seg Neuts % (Manual) Lymphocytes % (Manual) Seg Neutrophils # Man Lymphocytes # (Manual) Monocytes # (Manual) PT INR D-Dimer ABG pH ABG pO2 ABG HCO3 ABG O2 Saturation ABG Base Excess ABG Hemoglobin Oxyhemoglobin Sodium 133 L Potassium Chloride 97.9 L Carbon Dioxide BUN 36 H Creatinine 0.5 L Glucose 126 H POC Glucose 127 H Lactic Acid Calcium 8.3 L Phosphorus Magnesium AST ALT Alkaline Phosphatase Lactate Dehydrogenase Troponin T C-Reactive Protein NT-Pro-B Natriuret Pep Total Protein Albumin LDL Cholesterol Direct Vitamin B12 Vancomycin Trough Crossmatch 12/19/21 12/19/21 12/19/21 05:26 12:20 16:43 WBC RBC Hgb Hct MCV MCH MCHC RDW Plt Count Seg Neuts % (Manual) Lymphocytes % (Manual) Seg Neutrophils # Man Lymphocytes # (Manual) Monocytes # (Manual) PT INR D-Dimer ABG pH ABG pO2 ABG HCO3 ABG O2 Saturation ABG Base Excess ABG Hemoglobin Oxyhemoglobin Sodium Potassium Chloride Carbon Dioxide BUN Creatinine Glucose POC Glucose 119 H 145 H 126 H Lactic Acid Calcium Phosphorus Magnesium AST ALT Alkaline Phosphatase Lactate Dehydrogenase Troponin T C-Reactive Protein NT-Pro-B Natriuret Pep Total Protein Albumin LDL Cholesterol Direct Vitamin B12 Vancomycin Trough Crossmatch 12/19/21 12/20/21 12/20/21 23:30 04:54 04:54 WBC 12.3 H RBC 3.54 L Hgb 10.0 L Hct 29.5 L MCV MCH MCHC RDW 17.8 H Plt Count Seg Neuts % (Manual) 88.0 H Lymphocytes % (Manual) 6.0 L Seg Neutrophils # Man 10.8 H Lymphocytes # (Manual) 0.7 L Monocytes # (Manual) PT INR D-Dimer ABG pH ABG pO2 ABG HCO3 ABG O2 Saturation ABG Base Excess ABG Hemoglobin Oxyhemoglobin Sodium 131 L Potassium Chloride 96.2 L Carbon Dioxide BUN 36 H Creatinine 0.5 L Glucose 130 H POC Glucose 117 H Lactic Acid Calcium Phosphorus Magnesium AST ALT Alkaline Phosphatase Lactate Dehydrogenase Troponin T C-Reactive Protein NT-Pro-B Natriuret Pep Total Protein Albumin LDL Cholesterol Direct Vitamin B12 Vancomycin Trough Crossmatch 12/20/21 12/20/21 12/20/21 05:20 11:51 17:30 WBC RBC Hgb Hct MCV MCH MCHC RDW Plt Count Seg Neuts % (Manual) Lymphocytes % (Manual) Seg Neutrophils # Man Lymphocytes # (Manual) Monocytes # (Manual) PT INR D-Dimer ABG pH ABG pO2 ABG HCO3 ABG O2 Saturation ABG Base Excess ABG Hemoglobin Oxyhemoglobin Sodium Potassium Chloride Carbon Dioxide BUN Creatinine Glucose POC Glucose 126 H 119 H 127 H Lactic Acid Calcium Phosphorus Magnesium AST ALT Alkaline Phosphatase Lactate Dehydrogenase Troponin T C-Reactive Protein NT-Pro-B Natriuret Pep Total Protein Albumin LDL Cholesterol Direct Vitamin B12 Vancomycin Trough Crossmatch 12/21/21 12/21/21 12/21/21 00:45 04:21 04:21 WBC RBC 3.47 L Hgb 9.4 L Hct 29.2 L MCV MCH 27 L MCHC RDW 18.1 H Plt Count Seg Neuts % (Manual) Lymphocytes % (Manual) Seg Neutrophils # Man Lymphocytes # (Manual) Monocytes # (Manual) PT INR D-Dimer ABG pH ABG pO2 ABG HCO3 ABG O2 Saturation ABG Base Excess ABG Hemoglobin Oxyhemoglobin Sodium 134 L Potassium Chloride Carbon Dioxide BUN 35 H Creatinine 0.5 L Glucose 122 H POC Glucose 125 H Lactic Acid Calcium 8.2 L Phosphorus Magnesium AST ALT Alkaline Phosphatase Lactate Dehydrogenase Troponin T C-Reactive Protein NT-Pro-B Natriuret Pep Total Protein Albumin LDL Cholesterol Direct Vitamin B12 Vancomycin Trough Crossmatch 12/21/21 12/21/21 12/21/21 05:38 11:29 16:16 WBC RBC Hgb Hct MCV MCH MCHC RDW Plt Count Seg Neuts % (Manual) Lymphocytes % (Manual) Seg Neutrophils # Man Lymphocytes # (Manual) Monocytes # (Manual) PT INR D-Dimer ABG pH ABG pO2 ABG HCO3 ABG O2 Saturation ABG Base Excess ABG Hemoglobin Oxyhemoglobin Sodium Potassium Chloride Carbon Dioxide BUN Creatinine Glucose POC Glucose 127 H 121 H 113 H Lactic Acid Calcium Phosphorus Magnesium AST ALT Alkaline Phosphatase Lactate Dehydrogenase Troponin T C-Reactive Protein NT-Pro-B Natriuret Pep Total Protein Albumin LDL Cholesterol Direct Vitamin B12 Vancomycin Trough Crossmatch 12/22/21 12/22/21 12/23/21 04:58 04:58 06:40 WBC 11.5 H RBC 3.43 L Hgb 9.8 L Hct 28.7 L MCV MCH MCHC RDW 18.5 H 17.9 H Plt Count Seg Neuts % (Manual) Lymphocytes % (Manual) Seg Neutrophils # Man Lymphocytes # (Manual) Monocytes # (Manual) PT INR D-Dimer ABG pH ABG pO2 ABG HCO3 ABG O2 Saturation ABG Base Excess ABG Hemoglobin Oxyhemoglobin Sodium 130 L Potassium Chloride 97.8 L Carbon Dioxide BUN 31 H Creatinine 0.5 L Glucose 122 H POC Glucose Lactic Acid Calcium 7.9 L Phosphorus Magnesium AST ALT Alkaline Phosphatase Lactate Dehydrogenase Troponin T C-Reactive Protein NT-Pro-B Natriuret Pep Total Protein Albumin LDL Cholesterol Direct Vitamin B12 Vancomycin Trough Crossmatch 12/23/21 12/23/21 12/24/21 06:40 23:25 04:24 WBC 11.7 H RBC Hgb 9.8 L Hct MCV MCH 26 L MCHC RDW 18.1 H Plt Count Seg Neuts % (Manual) Lymphocytes % (Manual) Seg Neutrophils # Man Lymphocytes # (Manual) Monocytes # (Manual) PT INR D-Dimer ABG pH ABG pO2 ABG HCO3 ABG O2 Saturation ABG Base Excess ABG Hemoglobin Oxyhemoglobin Sodium 136 L Potassium Chloride Carbon Dioxide BUN 27 H Creatinine 0.4 L Glucose 107 H POC Glucose 110 H Lactic Acid Calcium 8.1 L Phosphorus Magnesium AST ALT Alkaline Phosphatase Lactate Dehydrogenase Troponin T C-Reactive Protein NT-Pro-B Natriuret Pep Total Protein Albumin LDL Cholesterol Direct Vitamin B12 Vancomycin Trough Crossmatch 12/24/21 12/24/21 12/24/21 04:24 11:08 15:45 WBC RBC Hgb Hct MCV MCH MCHC RDW Plt Count Seg Neuts % (Manual) Lymphocytes % (Manual) Seg Neutrophils # Man Lymphocytes # (Manual) Monocytes # (Manual) PT INR D-Dimer ABG pH ABG pO2 ABG HCO3 ABG O2 Saturation ABG Base Excess ABG Hemoglobin Oxyhemoglobin Sodium 132 L Potassium Chloride Carbon Dioxide BUN 27 H Creatinine 0.3 L Glucose 108 H POC Glucose 116 H 107 H Lactic Acid Calcium Phosphorus Magnesium AST ALT Alkaline Phosphatase Lactate Dehydrogenase Troponin T C-Reactive Protein NT-Pro-B Natriuret Pep Total Protein Albumin LDL Cholesterol Direct Vitamin B12 Vancomycin Trough Crossmatch 12/24/21 12/25/21 12/25/21 23:43 05:29 11:48 WBC RBC Hgb Hct MCV MCH MCHC RDW Plt Count Seg Neuts % (Manual) Lymphocytes % (Manual) Seg Neutrophils # Man Lymphocytes # (Manual) Monocytes # (Manual) PT INR D-Dimer ABG pH ABG pO2 ABG HCO3 ABG O2 Saturation ABG Base Excess ABG Hemoglobin Oxyhemoglobin Sodium Potassium Chloride Carbon Dioxide BUN Creatinine Glucose POC Glucose 123 H 107 H 119 H Lactic Acid Calcium Phosphorus Magnesium AST ALT Alkaline Phosphatase Lactate Dehydrogenase Troponin T C-Reactive Protein NT-Pro-B Natriuret Pep Total Protein Albumin LDL Cholesterol Direct Vitamin B12 Vancomycin Trough Crossmatch 12/26/21 12/26/21 12/26/21 00:06 05:56 07:51 WBC 11.4 H RBC 3.40 L Hgb 9.3 L Hct 28.3 L MCV MCH 27 L MCHC RDW 18.2 H Plt Count Seg Neuts % (Manual) Lymphocytes % (Manual) Seg Neutrophils # Man Lymphocytes # (Manual) Monocytes # (Manual) PT INR D-Dimer ABG pH ABG pO2 ABG HCO3 ABG O2 Saturation ABG Base Excess ABG Hemoglobin Oxyhemoglobin Sodium Potassium Chloride Carbon Dioxide BUN Creatinine Glucose POC Glucose 133 H 107 H Lactic Acid Calcium Phosphorus Magnesium AST ALT Alkaline Phosphatase Lactate Dehydrogenase Troponin T C-Reactive Protein NT-Pro-B Natriuret Pep Total Protein Albumin LDL Cholesterol Direct Vitamin B12 Vancomycin Trough Crossmatch 12/26/21 12/26/21 12/26/21 07:51 11:43 17:06 WBC RBC Hgb Hct MCV MCH MCHC RDW Plt Count Seg Neuts % (Manual) Lymphocytes % (Manual) Seg Neutrophils # Man Lymphocytes # (Manual) Monocytes # (Manual) PT INR D-Dimer ABG pH ABG pO2 ABG HCO3 ABG O2 Saturation ABG Base Excess ABG Hemoglobin Oxyhemoglobin Sodium 136 L Potassium Chloride Carbon Dioxide BUN 25 H Creatinine 0.3 L Glucose 131 H POC Glucose 119 H 128 H Lactic Acid Calcium Phosphorus Magnesium AST ALT Alkaline Phosphatase Lactate Dehydrogenase Troponin T C-Reactive Protein NT-Pro-B Natriuret Pep Total Protein Albumin LDL Cholesterol Direct Vitamin B12 Vancomycin Trough Crossmatch 12/28/21 12/28/21 12/29/21 09:05 09:05 04:40 WBC RBC 3.19 L Hgb 8.9 L Hct 26.4 L MCV MCH 27 L MCHC RDW 18.4 H 17.9 H Plt Count Seg Neuts % (Manual) Lymphocytes % (Manual) Seg Neutrophils # Man Lymphocytes # (Manual) Monocytes # (Manual) PT INR D-Dimer ABG pH ABG pO2 ABG HCO3 ABG O2 Saturation ABG Base Excess ABG Hemoglobin Oxyhemoglobin Sodium 135 L Potassium Chloride 97.8 L Carbon Dioxide BUN 18 H Creatinine 0.3 L Glucose POC Glucose Lactic Acid Calcium Phosphorus Magnesium AST ALT Alkaline Phosphatase Lactate Dehydrogenase Troponin T C-Reactive Protein NT-Pro-B Natriuret Pep Total Protein Albumin LDL Cholesterol Direct Vitamin B12 Vancomycin Trough Crossmatch 12/29/21 12/29/2112/30/22 04:40 12:47 04:05 WBC RBC 3.29 L Hgb 8.7 L Hct 27.6 L MCV MCH 27 L MCHC RDW 17.6 H Plt Count Seg Neuts % (Manual) Lymphocytes % (Manual) Seg Neutrophils # Man Lymphocytes # (Manual) Monocytes # (Manual) PT INR D-Dimer ABG pH ABG pO2 ABG HCO3 ABG O2 Saturation ABG Base Excess ABG Hemoglobin Oxyhemoglobin Sodium 136 L Potassium Chloride Carbon Dioxide BUN Creatinine 0.3 L Glucose POC Glucose 67 L Lactic Acid Calcium 8.3 L Phosphorus Magnesium AST ALT Alkaline Phosphatase Lactate Dehydrogenase Troponin T C-Reactive Protein NT-Pro-B Natriuret Pep Total Protein Albumin LDL Cholesterol Direct Vitamin B12 Vancomycin Trough Crossmatch 12/30/21 12/31/21 12/31/21 04:05 00:07 04:00 WBC RBC 3.05 L Hgb 8.5 L Hct 25.5 L MCV MCH MCHC RDW 18.2 H Plt Count Seg Neuts % (Manual) Lymphocytes % (Manual) Seg Neutrophils # Man Lymphocytes # (Manual) Monocytes # (Manual) PT INR D-Dimer ABG pH ABG pO2 ABG HCO3 ABG O2 Saturation ABG Base Excess ABG Hemoglobin Oxyhemoglobin Sodium 136 L Potassium 3.5 L Chloride Carbon Dioxide BUN Creatinine 0.4 L Glucose POC Glucose 139 H Lactic Acid Calcium Phosphorus Magnesium 1.50 L AST ALT Alkaline Phosphatase Lactate Dehydrogenase Troponin T C-Reactive Protein NT-Pro-B Natriuret Pep Total Protein Albumin LDL Cholesterol Direct Vitamin B12 Vancomycin Trough Crossmatch 12/31/21 12/31/21 12/31/21 04:00 04:52 11:23 WBC RBC Hgb Hct MCV MCH MCHC RDW Plt Count Seg Neuts % (Manual) Lymphocytes % (Manual) Seg Neutrophils # Man Lymphocytes # (Manual) Monocytes # (Manual) PT INR D-Dimer ABG pH ABG pO2 ABG HCO3 ABG O2 Saturation ABG Base Excess ABG Hemoglobin Oxyhemoglobin Sodium Potassium Chloride Carbon Dioxide BUN 19 H Creatinine 0.4 L Glucose 116 H POC Glucose 121 H 116 H Lactic Acid Calcium Phosphorus Magnesium AST ALT Alkaline Phosphatase Lactate Dehydrogenase Troponin T C-Reactive Protein NT-Pro-B Natriuret Pep Total Protein Albumin LDL Cholesterol Direct Vitamin B12 Vancomycin Trough Crossmatch 12/31/21 01/01/22 01/01/22 17:42 04:31 04:31 WBC RBC 2.83 L Hgb 7.7 L Hct 23.2 L MCV MCH 27 L MCHC RDW 18.3 H Plt Count Seg Neuts % (Manual) Lymphocytes % (Manual) Seg Neutrophils # Man Lymphocytes # (Manual) Monocytes # (Manual) PT INR D-Dimer ABG pH ABG pO2 ABG HCO3 ABG O2 Saturation ABG Base Excess ABG Hemoglobin Oxyhemoglobin Sodium 135 L Potassium Chloride 97.7 L Carbon Dioxide BUN 21 H Creatinine 0.5 L Glucose 127 H POC Glucose 107 H Lactic Acid Calcium 8.0 L Phosphorus Magnesium AST ALT Alkaline Phosphatase Lactate Dehydrogenase Troponin T C-Reactive Protein NT-Pro-B Natriuret Pep Total Protein Albumin LDL Cholesterol Direct Vitamin B12 Vancomycin Trough Crossmatch 01/01/22 01/01/22 01/01/22 05:24 11:25 18:11 WBC RBC Hgb Hct MCV MCH MCHC RDW Plt Count Seg Neuts % (Manual) Lymphocytes % (Manual) Seg Neutrophils # Man Lymphocytes # (Manual) Monocytes # (Manual) PT INR D-Dimer ABG pH ABG pO2 ABG HCO3 ABG O2 Saturation ABG Base Excess ABG Hemoglobin Oxyhemoglobin Sodium Potassium Chloride Carbon Dioxide BUN Creatinine Glucose POC Glucose 124 H 140 H 144 H Lactic Acid Calcium Phosphorus Magnesium AST ALT Alkaline Phosphatase Lactate Dehydrogenase Troponin T C-Reactive Protein NT-Pro-B Natriuret Pep Total Protein Albumin LDL Cholesterol Direct Vitamin B12 Vancomycin Trough Crossmatch 01/01/22 01/02/22 01/02/22 23:26 04:01 04:01 WBC RBC 2.57 L Hgb 7.1 L Hct 21.5 L MCV MCH MCHC RDW 18.1 H Plt Count Seg Neuts % (Manual) Lymphocytes % (Manual) Seg Neutrophils # Man Lymphocytes # (Manual) Monocytes # (Manual) PT INR D-Dimer ABG pH ABG pO2 ABG HCO3 ABG O2 Saturation ABG Base Excess ABG Hemoglobin Oxyhemoglobin Sodium 131 L Potassium 3.5 L Chloride 94.8 L Carbon Dioxide BUN 27 H Creatinine Glucose 121 H POC Glucose 121 H Lactic Acid Calcium Phosphorus Magnesium AST ALT Alkaline Phosphatase Lactate Dehydrogenase Troponin T C-Reactive Protein NT-Pro-B Natriuret Pep Total Protein Albumin LDL Cholesterol Direct Vitamin B12 Vancomycin Trough Crossmatch 01/02/22 01/02/22 01/02/22 05:30 11:10 16:08 WBC RBC Hgb Hct MCV MCH MCHC RDW Plt Count Seg Neuts % (Manual) Lymphocytes % (Manual) Seg Neutrophils # Man Lymphocytes # (Manual) Monocytes # (Manual) PT INR D-Dimer ABG pH ABG pO2 ABG HCO3 ABG O2 Saturation ABG Base Excess ABG Hemoglobin Oxyhemoglobin Sodium Potassium Chloride Carbon Dioxide BUN Creatinine Glucose POC Glucose 124 H 117 H 130 H Lactic Acid Calcium Phosphorus Magnesium AST ALT Alkaline Phosphatase Lactate Dehydrogenase Troponin T C-Reactive Protein NT-Pro-B Natriuret Pep Total Protein Albumin LDL Cholesterol Direct Vitamin B12 Vancomycin Trough Crossmatch 01/02/22 01/02/22 01/03/22 17:30 23:26 04:53 WBC RBC 2.82 L Hgb 7.7 L Hct 23.4 L MCV MCH 27 L MCHC RDW 18.0 H Plt Count Seg Neuts % (Manual) Lymphocytes % (Manual) Seg Neutrophils # Man Lymphocytes # (Manual) Monocytes # (Manual) PT INR D-Dimer ABG pH ABG pO2 ABG HCO3 ABG O2 Saturation ABG Base Excess ABG Hemoglobin Oxyhemoglobin Sodium Potassium Chloride Carbon Dioxide BUN Creatinine Glucose POC Glucose 114 H Lactic Acid Calcium Phosphorus Magnesium AST ALT Alkaline Phosphatase Lactate Dehydrogenase Troponin T C-Reactive Protein NT-Pro-B Natriuret Pep Total Protein Albumin LDL Cholesterol Direct Vitamin B12 Vancomycin Trough 22.8 H Crossmatch 01/03/22 01/03/22 01/03/22 04:53 06:23 17:35 WBC RBC Hgb Hct MCV MCH MCHC RDW Plt Count Seg Neuts % (Manual) Lymphocytes % (Manual) Seg Neutrophils # Man Lymphocytes # (Manual) Monocytes # (Manual) PT INR D-Dimer ABG pH ABG pO2 ABG HCO3 ABG O2 Saturation ABG Base Excess ABG Hemoglobin Oxyhemoglobin Sodium 133 L Potassium Chloride 96.2 L Carbon Dioxide BUN 30 H Creatinine Glucose 107 H POC Glucose 122 H 107 H Lactic Acid Calcium Phosphorus Magnesium AST ALT Alkaline Phosphatase Lactate Dehydrogenase Troponin T C-Reactive Protein NT-Pro-B Natriuret Pep Total Protein Albumin LDL Cholesterol Direct Vitamin B12 Vancomycin Trough Crossmatch 01/04/22 01/04/22 01/04/22 04:00 12:32 16:45 WBC RBC Hgb Hct MCV MCH MCHC RDW Plt Count Seg Neuts % (Manual) Lymphocytes % (Manual) Seg Neutrophils # Man Lymphocytes # (Manual) Monocytes # (Manual) PT INR D-Dimer ABG pH ABG pO2 ABG HCO3 ABG O2 Saturation ABG Base Excess ABG Hemoglobin Oxyhemoglobin Sodium 132 L Potassium Chloride 92.8 L Carbon Dioxide BUN 30 H Creatinine Glucose 115 H POC Glucose 111 H 111 H Lactic Acid Calcium Phosphorus Magnesium 1.60 L AST ALT Alkaline Phosphatase Lactate Dehydrogenase Troponin T C-Reactive Protein NT-Pro-B Natriuret Pep Total Protein Albumin LDL Cholesterol Direct Vitamin B12 Vancomycin Trough Crossmatch Allied health notes reviewed: RT
[2022-01-05] MEDS: DOCUSATE SODIUM 100 MG/10 ML ORAL LIQD FEEDTUBE SCH ×3 (01:13→21:18)
[2022-01-05] MEDS: busPIRone 5 MG TAB FEEDTUBE SCH ×3 (01:13→21:18)
[2022-01-05] MEDS: traZODone 50 MG TAB PO SCH ×2 (01:14→21:18)
[2022-01-05] MEDS: MELATONIN 5 MG TAB PO SCH ×2 (01:14→21:18)
[2022-01-05] MEDS: SENNOSIDES ORAL LIQD 8.8 MG/5 ML ORAL LIQD FEEDTUBE SCH ×3 (01:16→21:18)
[2022-01-05] MEDS: LANSOPRAZOLE 30 MG SOLUTAB FEEDTUBE SCH ×3 (01:16→21:18)
[2022-01-05] MEDS: QUEtiapine 25 MG TAB FEEDTUBE SCH ×3 (01:17→21:18)
[2022-01-05] MEDS: SUCRALFATE 1 GM/10 ML ORAL LIQD FEEDTUBE SCH ×5 (01:17→23:28)
[2022-01-05] MEDS: HYDROmorphone 1 MG/1 ML INJ IV PRN ×2 (04:15→14:20)
[2022-01-05] MEDS: LEVOTHYROXINE 125 MCG TAB FEEDTUBE SCH (05:00)
[2022-01-05] MEDS: METOCLOPRAMIDE 10 MG/2 ML INJ IV SCH (05:00)
[2022-01-05 05:28] LABS: Hematocrit 25.5 % (30.3-42.9); Hemoglobin 8.4 gm/dl (10.1-14.3); Mean Corpuscular HGB Conc 33 % (30-34); Mean Corpuscular Volume 82 fl (79-97); Platelet Count 242 K/mm3 (140-440); Red Blood Count 3.11 M/mm3 (3.65-5.03); Red Cell Distribution Width 17.6 % (13.2-15.2)
[2022-01-05 06:07] LABS: Blood Urea Nitrogen 29 mg/dL (7-17); Calcium 9.2 mg/dL (8.4-10.2); Hemolysis Index 0
--- NOTE | 2022-01-05 06:18 | XRay Report ---
CHEST 1 VIEW 01/05/2022 5:07 AM INDICATION / CLINICAL INFORMATION: Bilateral Pleural Effusion. COMPARISON: 01/01/22. FINDINGS: SUPPORT DEVICES: The positions of the tracheostomy tube, right PICC and dual chamber left subclavian transvenous pacemaker have not changed. HEART / MEDIASTINUM: Unchanged. LUNGS / PLEURA: Diffuse bilateral pleuroparenchymal opacities, right greater than left, are similar t o the prior exam. No pneumothorax. ADDITIONAL FINDINGS: No significant additional findings. IMPRESSION: No significant interval change. Signer Name: Deven Nguyễn MD Signed: 01/05/2022 6:14 AM Workstation Name: [id number]
[2022-01-05 06:33] LABS: BUN/Creatinine Ratio 48
[2022-01-05] MEDS: MIDODRINE 5 MG TAB FEEDTUBE SCH ×3 (07:54→18:47)
[2022-01-05] MEDS: HYDROcodone/ACETAMINOPHEN 10-325MG TAB FEEDTUBE SCH ×3 (07:55→21:16)
--- NOTE | 2022-01-05 08:58 | Electrocardiograph Report ---
[facility] Test Date: 2022-01-03 Test Time: 12:51:40 Pat Name: ENRRIQUE GLASS Department: Room: A266 1 Gender: F Manager Gallery: GRANT : [id number] Requested By: LONNIE MAURICE Order Number: [id number] Reading MD: Vamsi Covington Measurements Intervals [place] Rate: 63 P: -24 VT: 182 QRS: -29 QRSD: 144 T: 151 QT: 398 QTc: 407 Interpretive Statements Sinus rhythm IVCD, consider RBBB Compared to ECG 12/29/2021 15:39:30 No significant change Electronically Signed On 01-05-2022 8:58:31 EDT by Vamsi Covington
[2022-01-05] MEDS: GABAPENTIN 100 MG CAP FEEDTUBE SCH (10:11)
[2022-01-05] MEDS: METOPROLOL TARTRATE 25 MG TAB FEEDTUBE SCH ×2 (10:11→21:19)
[2022-01-05] MEDS: SPIRONOLACTONE 25 MG TAB FEEDTUBE SCH (10:11)
[2022-01-05] MEDS: POLYETHYLENE GLYCOL 3350 17 GM POWDER FEEDTUBE SCH (10:12)
--- NOTE | 2022-01-05 13:13 | Progress Note ---
Assessment and Plan 81-year-old female with known history of diabetes mellitus, hypertension and arthritis brought to the emergency room via EMS for shortness of breath which has been ongoing for the past 3 days prior to come to the emergency room. Patient has been having some cough and shortness of breath. According to patient's , patient has also been having a fever of about 102.2 F. Upon arrival of EMS patient was found to be tachypneic with O2 saturation of 76% on room air which later improved to 88% on nonrebreather. Work-up in the emergency room , chest x-ray shows bilateral interstitial pulmonary edema with bilateral pleural effusions.. Bibasilar opacities which favors atelectasis. Lab reveals leukocytosis of 29. Hemoglobin of 6.1. Patient received blood transfusion and also checked for COVID-19. Patient Ivy virus test reported negative. Patient intubated and placed on mechanical ventilation. Patient transfered to ICU. Patient undergone thoracentesis and chest tube placement. Patient still on mechanical ventilation. Patient transfered to IMCU. Patient awake. Following simple commands.. Patient is still on assist control mechanical ventilation, rate 14, Tidal volume 400, FIO2 30%, PEEP 8 and O2 saturation running 100%. Recommend spontaneous breathing trials. Patient afebrile. No leukocytosis.Blood pressure 156/79, Pulse 65 , respirations 15 Patients recent HGB 8.4 01/03/22 Chest xray 12/11/21 reported Diffuse bilateral pulmonary opacities most significant in the left lung and right upper lung .No pneumothorax. Chest xray done 01/01/22 reported Worsening bilateral pulmonary opacities and effusions Chest xray done 01/05/22Diffuse bilateral pleuroparenchymal opacities, right greater than left, are similar to the prior exam. No pneumothorax. Patient is on Vancomycin, Prevacid and Sucralfate. Recommend SCDs. Patient is on tube feeding. Talk to the patients family and explained respiratory status. I spent critical care time of 35 minutes, reviewing the chart, examine the patient, review lab results, chest xray and talk to respiratory therapy and nursing staff and work out plan of treatment in this critically ill patient. - Patient Problems (1) Acute respiratory failure with hypoxia Current Visit: Yes Status: Acute Plan to address problem: Mechanical ventilation, assist control, rate 14, Tidal volue 400, FIO2 30%, PEEP 8 S/P tracheostomy. (2) Bilateral pneumonia Current Visit: Yes Status: Acute Plan to address problem: Patient is on vancomycin. (3) Occult blood positive stool Current Visit: Yes Status: Acute Plan to address problem: Management as per gastroenterology. (4) Acute anemia Current Visit: Yes Status: Acute Plan to address problem: Patient received blood transfusion. (5) Suspected COVID-19 virus infection Current Visit: Yes Status: Acute Plan to address problem: Ivy virus PCR negative. Subjective Date of service: 01/05/22 Principal diagnosis: Septic shock; AHRF; Anemia; Pneumonia; pleural effusion; HFrEF; Pulm HTN Interval history: 81-year-old female with known history of diabetes mellitus, hypertension and arthritis brought to the emergency room via EMS for shortness of breath which has been ongoing for the past 3 days prior to come to the emergency room. Patient has been having some cough and shortness of breath. According to patient's , patient has also been having a fever of about 102.2 F. Upon arrival of EMS patient was found to be tachypneic with O2 saturation of 76% on room air which later improved to 88% on nonrebreather. Work-up in the emergency room , chest x-ray shows bilateral interstitial pulmonary edema with bilateral pleural effusions.. Bibasilar opacities which favors atelectasis. Lab reveals leukocytosis of 29. Hemoglobin of 6.1. Patient received blood transfusion and also checked for COVID-19. Patient Ivy virus test reported negative. Patient intubated and placed on mechanical ventilation. Patient transfered to ICU. Patient undergone thoracentesis and chest tube placement. Patient still on mechanical ventilation. Patient transfered to IMCU. Patient awake. Following simple commands.. Patient is still on assist control mechanical ventilation, rate 14, Tidal volume 400, FIO2 30%, PEEP 8 and O2 saturation running 100%. Recommend spontaneous breathing trials. Patient afebrile. No leukocytosis.Blood pressure 156/79, Pulse 65 , respirations 15 Patients recent HGB 8.4 01/03/22 Chest xray 12/11/21 reported Diffuse bilateral pulmonary opacities most significant in the left lung and right upper lung .No pneumothorax. Chest xray done 01/01/22 reported Worsening bilateral pulmonary opacities and effusions Chest xray 01/05/22 reported Diffuse bilateral pleuroparenchymal opacities, right greater than left, are similar to the prior exam. No pneumothorax. Patient is on Vancomycin, Prevacid and Sucralfate. Recommend SCDs. Patient is on tube feeding. Objective Vital Signs - 12hr 01/05/22 01/05/22 01/05/22 02:01 03:00 04:00 Temperature 98.6 F Pulse Rate 62 61 Pulse Rate [ 75 From Monitor] Respiratory 15 14 21 Rate Blood Pressure 134/64 139/65 O2 Sat by Pulse 100 100 100 Oximetry 01/05/22 01/05/22 01/05/22 04:01 04:45 05:00 Temperature Pulse Rate 67 60 62 Pulse Rate [ From Monitor] Respiratory 14 2 L 14 Rate Blood Pressure 139/65 148/76 149/76 O2 Sat by Pulse 99 100 100 Oximetry 01/05/22 01/05/22 01/05/22 06:00 07:00 07:42 Temperature Pulse Rate 60 60 62 Pulse Rate [ From Monitor] Respiratory 15 14 Rate Blood Pressure 128/74 123/69 123/69 O2 Sat by Pulse 100 100 100 Oximetry 01/05/22 01/05/22 01/05/22 08:00 08:01 09:00 Temperature 97.4 F L Pulse Rate 60 63 60 Pulse Rate [ 60 From Monitor] Respiratory 14 15 14 Rate Blood Pressure 130/67 138/72 O2 Sat by Pulse 100 100 100 Oximetry 01/05/22 01/05/22 01/05/22 10:01 11:01 11:29 Temperature Pulse Rate 67 62 60 Pulse Rate [ From Monitor] Respiratory 15 12 Rate Blood Pressure 138/72 140/60 140/60 O2 Sat by Pulse 99 100 100 Oximetry 01/05/22 01/05/22 12:00 13:00 Temperature 98.2 F Pulse Rate 60 62 Pulse Rate [ 60 From Monitor] Respiratory 14 14 Rate Blood Pressure 141/54 156/79 O2 Sat by Pulse 98 100 Oximetry Constitutional: no acute distress, alert, other (trach to MVS, frail elderly woman with mildly increased respiratory effort at rest) Eyes: non-icteric ENT: oropharynx moist, other (+ Midline tracheostomy with minimal secretions) Neck: supple, no lymphadenopathy, no JVD Effort: mildly labored Ascultation: Bilateral: diminished breath sounds, rhonchi, other (Right chest tube) Percussion: Bilateral: not dull Cardiovascular: regular rate and rhythm, other (S1,S2) Gastrointestinal: normoactive bowel sounds, soft, non-tender, non-distended (protuberant) Integumentary: normal Extremities: no cyanosis, pink and warm, pulses normal, edema (upper etremities), anasarca Neurologic: non-focal exam (grossly), pupils equal and round Psychiatric: mood appropriate CBC and BMP: 01/06/22 04:06 01/06/22 04:06 ABG, PT/INR, D-dimer: ABG ABG pH 7.479 pH Units (7.350-7.450) H 12/16/21 20:52 ABG pCO2 37.5 mm Hg 12/16/21 20:52 ABG pO2 79.3 mm Hg (80.0-90.0) L 12/16/21 20:52 ABG O2 Saturation 97.0 % (95.0-99.0) 12/16/21 20:52 PT/INR, D-dimer PT 16.9 Sec. (12.2-14.9) H 11/26/21 05:00 INR 1.24 (0.87-1.13) H 11/26/21 05:00 D-Dimer 2655.00 ng/mlDDU (0-234) H 11/11/21 04:28 Abnormal lab findings: Abnormal Labs 11/03/21 11/03/21 11/03/21 22:32 22:32 22:32 WBC 29.3 H RBC 2.93 L Hgb 6.1 L Hct 21.9 L MCV 75 L MCH 21 L MCHC 28 L RDW 19.7 H Plt Count Seg Neuts % (Manual) 97.0 H Lymphocytes % (Manual) 3.0 L Seg Neutrophils # Man 28.4 H Lymphocytes # (Manual) 0.9 L Monocytes # (Manual) PT 18.6 H INR 1.40 H D-Dimer ABG pH ABG pO2 ABG HCO3 ABG O2 Saturation ABG Base Excess ABG Hemoglobin Oxyhemoglobin Sodium Potassium Chloride Carbon Dioxide 20 L BUN 33 H Creatinine Glucose 119 H POC Glucose Lactic Acid Calcium 8.3 L Phosphorus Magnesium AST ALT Alkaline Phosphatase Lactate Dehydrogenase Troponin T 0.035 H C-Reactive Protein NT-Pro-B Natriuret Pep Total Protein Albumin LDL Cholesterol Direct 34 L Vitamin B12 Vancomycin Trough Crossmatch 0111/03/21 11/03/21 22:32 22:32 23:57 WBC RBC Hgb Hct MCV MCH MCHC RDW Plt Count Seg Neuts % (Manual) Lymphocytes % (Manual) Seg Neutrophils # Man Lymphocytes # (Manual) Monocytes # (Manual) PT INR D-Dimer ABG pH ABG pO2 ABG HCO3 ABG O2 Saturation ABG Base Excess ABG Hemoglobin Oxyhemoglobin Sodium Potassium Chloride Carbon Dioxide BUN Creatinine Glucose POC Glucose Lactic Acid 3.70 H* Calcium Phosphorus Magnesium AST ALT Alkaline Phosphatase 139 H Lactate Dehydrogenase Troponin T C-Reactive Protein NT-Pro-B Natriuret Pep 7895 H Total Protein Albumin 3.5 L LDL Cholesterol Direct Vitamin B12 Vancomycin Trough Crossmatch See Detail 11/04/21 11/04/21 11/05/21 00:59 13:58 00:51 WBC 27.9 H RBC 3.28 L Hgb 7.3 L Hct 25.5 L MCV 78 L MCH 22 L MCHC 29 L RDW 19.1 H Plt Count Seg Neuts % (Manual) 96.0 H Lymphocytes % (Manual) 2.0 L Seg Neutrophils # Man 26.8 H Lymphocytes # (Manual) 0.6 L Monocytes # (Manual) PT INR D-Dimer ABG pH ABG pO2 ABG HCO3 ABG O2 Saturation ABG Base Excess ABG Hemoglobin Oxyhemoglobin Sodium Potassium Chloride Carbon Dioxide BUN Creatinine Glucose POC Glucose Lactic Acid Calcium Phosphorus Magnesium AST ALT Alkaline Phosphatase Lactate Dehydrogenase Troponin T 0.051 H D 0.032 H D C-Reactive Protein NT-Pro-B Natriuret Pep Total Protein Albumin LDL Cholesterol Direct Vitamin B12 Vancomycin Trough Crossmatch 11/05/21 11/05/21 11/05/21 06:11 06:11 06:11 WBC 31.8 H RBC 3.57 L Hgb 8.0 L Hct 27.7 L MCV 78 L MCH 22 L MCHC 29 L RDW 19.2 H Plt Count Seg Neuts % (Manual) 91.0 H Lymphocytes % (Manual) 4.5 L Seg Neutrophils # Man 28.9 H Lymphocytes # (Manual) Monocytes # (Manual) 1.1 H PT INR D-Dimer 1494.53 H ABG pH ABG pO2 ABG HCO3 ABG O2 Saturation ABG Base Excess ABG Hemoglobin Oxyhemoglobin Sodium Potassium Chloride Carbon Dioxide 19 L BUN 42 H Creatinine Glucose 115 H POC Glucose Lactic Acid Calcium Phosphorus Magnesium AST 43 H ALT Alkaline Phosphatase Lactate Dehydrogenase 187 H Troponin T C-Reactive Protein 22.20 H NT-Pro-B Natriuret Pep Total Protein 6.0 L Albumin 3.2 L LDL Cholesterol Direct Vitamin B12 Vancomycin Trough Crossmatch 11/05/21 11/05/21 11/06/21 06:11 12:15 00:30 WBC RBC Hgb Hct MCV MCH MCHC RDW Plt Count Seg Neuts % (Manual) Lymphocytes % (Manual) Seg Neutrophils # Man Lymphocytes # (Manual) Monocytes # (Manual) PT INR D-Dimer ABG pH ABG pO2 ABG HCO3 ABG O2 Saturation ABG Base Excess ABG Hemoglobin Oxyhemoglobin Sodium Potassium Chloride Carbon Dioxide BUN Creatinine Glucose POC Glucose 113 H 69 L Lactic Acid Calcium Phosphorus Magnesium AST ALT Alkaline Phosphatase Lactate Dehydrogenase Troponin T 0.033 H C-Reactive Protein NT-Pro-B Natriuret Pep Total Protein Albumin LDL Cholesterol Direct Vitamin B12 Vancomycin Trough Crossmatch 11/06/21 11/06/21 11/06/21 05:50 15:50 15:50 WBC 25.5 H RBC 3.62 L Hgb 8.0 L Hct 27.5 L MCV 76 L MCH 22 L MCHC 29 L RDW 19.6 H Plt Count Seg Neuts % (Manual) 92.0 H Lymphocytes % (Manual) 5.0 L Seg Neutrophils # Man 23.5 H Lymphocytes # (Manual) Monocytes # (Manual) PT INR D-Dimer ABG pH 7.305 L ABG pO2 ABG HCO3 15.8 L ABG O2 Saturation ABG Base Excess -9.6 L ABG Hemoglobin 8.6 L Oxyhemoglobin 94.6 L Sodium Potassium Chloride 113.9 H Carbon Dioxide 17 L BUN 56 H Creatinine Glucose 114 H POC Glucose Lactic Acid Calcium 7.9 L Phosphorus Magnesium AST 1410 H ALT 934 H Alkaline Phosphatase 142 H Lactate Dehydrogenase Troponin T C-Reactive Protein NT-Pro-B Natriuret Pep Total Protein 5.0 L Albumin 2.6 L LDL Cholesterol Direct Vitamin B12 Vancomycin Trough Crossmatch 11/07/21 11/07/21 11/07/21 03:30 04:50 08:07 WBC RBC Hgb Hct MCV MCH MCHC RDW Plt Count Seg Neuts % (Manual) Lymphocytes % (Manual) Seg Neutrophils # Man Lymphocytes # (Manual) Monocytes # (Manual) PT INR D-Dimer ABG pH ABG pO2 296.9 H ABG HCO3 18.1 L ABG O2 Saturation 99.5 H ABG Base Excess -5.9 L ABG Hemoglobin 7.6 L Oxyhemoglobin Sodium Potassium Chloride Carbon Dioxide BUN Creatinine Glucose POC Glucose 106 H 108 H Lactic Acid Calcium Phosphorus Magnesium AST ALT Alkaline Phosphatase Lactate Dehydrogenase Troponin T C-Reactive Protein NT-Pro-B Natriuret Pep Total Protein Albumin LDL Cholesterol Direct Vitamin B12 Vancomycin Trough Crossmatch 11/08/21 11/08/21 11/08/21 03:10 18:05 23:43 WBC RBC Hgb Hct MCV MCH MCHC RDW Plt Count Seg Neuts % (Manual) Lymphocytes % (Manual) Seg Neutrophils # Man Lymphocytes # (Manual) Monocytes # (Manual) PT INR D-Dimer ABG pH ABG pO2 127.4 H ABG HCO3 ABG O2 Saturation ABG Base Excess -3.4 L ABG Hemoglobin 7.4 L Oxyhemoglobin Sodium Potassium Chloride Carbon Dioxide BUN Creatinine Glucose POC Glucose 113 H 141 H Lactic Acid Calcium Phosphorus Magnesium AST ALT Alkaline Phosphatase Lactate Dehydrogenase Troponin T C-Reactive Protein NT-Pro-B Natriuret Pep Total Protein Albumin LDL Cholesterol Direct Vitamin B12 Vancomycin Trough Crossmatch 11/08/21 11/08/21 11/09/21 Unknown Unknown 02:00 WBC 14.5 H RBC 3.35 L Hgb 7.5 L 8.1 L Hct 25.4 L 27.6 L MCV 76 L 76 L MCH 23 L 22 L MCHC RDW 19.9 H 19.9 H Plt Count Seg Neuts % (Manual) Lymphocytes % (Manual) Seg Neutrophils # Man Lymphocytes # (Manual) Monocytes # (Manual) PT INR D-Dimer ABG pH ABG pO2 ABG HCO3 ABG O2 Saturation ABG Base Excess ABG Hemoglobin Oxyhemoglobin Sodium 154 H D Potassium 3.3 L Chloride 120.7 H Carbon Dioxide 20 L BUN 38 H Creatinine Glucose POC Glucose Lactic Acid Calcium 8.3 L Phosphorus Magnesium AST ALT Alkaline Phosphatase Lactate Dehydrogenase Troponin T C-Reactive Protein NT-Pro-B Natriuret Pep Total Protein Albumin LDL Cholesterol Direct Vitamin B12 Vancomycin Trough Crossmatch 11/09/21 11/09/21 11/09/21 02:00 02:31 05:12 WBC RBC Hgb Hct MCV MCH MCHC RDW Plt Count Seg Neuts % (Manual) Lymphocytes % (Manual) Seg Neutrophils # Man Lymphocytes # (Manual) Monocytes # (Manual) PT INR D-Dimer ABG pH 7.479 H ABG pO2 121.3 H ABG HCO3 ABG O2 Saturation ABG Base Excess ABG Hemoglobin 7.3 L Oxyhemoglobin Sodium Potassium Chloride 112.5 H Carbon Dioxide BUN 33 H Creatinine Glucose 161 H POC Glucose 135 H Lactic Acid Calcium Phosphorus Magnesium AST 251 H ALT 481 H Alkaline Phosphatase Lactate Dehydrogenase Troponin T C-Reactive Protein NT-Pro-B Natriuret Pep Total Protein 5.0 L Albumin 2.8 L LDL Cholesterol Direct Vitamin B12 Vancomycin Trough Crossmatch 11/09/21 11/09/21 11/09/21 11:33 16:32 23:28 WBC RBC Hgb Hct MCV MCH MCHC RDW Plt Count Seg Neuts % (Manual) Lymphocytes % (Manual) Seg Neutrophils # Man Lymphocytes # (Manual) Monocytes # (Manual) PT INR D-Dimer ABG pH ABG pO2 ABG HCO3 ABG O2 Saturation ABG Base Excess ABG Hemoglobin Oxyhemoglobin Sodium Potassium Chloride Carbon Dioxide BUN Creatinine Glucose POC Glucose 132 H 133 H 143 H Lactic Acid Calcium Phosphorus Magnesium AST ALT Alkaline Phosphatase Lactate Dehydrogenase Troponin T C-Reactive Protein NT-Pro-B Natriuret Pep Total Protein Albumin LDL Cholesterol Direct Vitamin B12 Vancomycin Trough Crossmatch 11/10/21 11/10/21 11/10/21 04:00 04:00 05:35 WBC 16.0 H RBC 3.61 L Hgb 8.0 L Hct 27.1 L MCV 75 L MCH 22 L MCHC RDW 20.4 H Plt Count Seg Neuts % (Manual) Lymphocytes % (Manual) Seg Neutrophils # Man Lymphocytes # (Manual) Monocytes # (Manual) PT INR D-Dimer ABG pH ABG pO2 ABG HCO3 ABG O2 Saturation ABG Base Excess ABG Hemoglobin Oxyhemoglobin Sodium 149 H Potassium Chloride 114.1 H Carbon Dioxide BUN 31 H Creatinine Glucose 148 H POC Glucose 132 H Lactic Acid Calcium 8.2 L Phosphorus Magnesium AST ALT Alkaline Phosphatase Lactate Dehydrogenase Troponin T C-Reactive Protein NT-Pro-B Natriuret Pep Total Protein Albumin LDL Cholesterol Direct Vitamin B12 Vancomycin Trough Crossmatch 11/10/21 11/10/21 11/10/21 11:31 14:08 15:35 WBC RBC Hgb Hct MCV MCH MCHC RDW Plt Count Seg Neuts % (Manual) Lymphocytes % (Manual) Seg Neutrophils # Man Lymphocytes # (Manual) Monocytes # (Manual) PT INR D-Dimer ABG pH ABG pO2 126.6 H ABG HCO3 ABG O2 Saturation ABG Base Excess ABG Hemoglobin 7.4 L Oxyhemoglobin Sodium Potassium Chloride Carbon Dioxide BUN Creatinine Glucose POC Glucose 147 H Lactic Acid Calcium Phosphorus Magnesium AST ALT Alkaline Phosphatase Lactate Dehydrogenase Troponin T C-Reactive Protein NT-Pro-B Natriuret Pep Total Protein Albumin LDL Cholesterol Direct Vitamin B12 1823 H Vancomycin Trough Crossmatch 11/10/21 11/11/21 11/11/21 17:53 00:55 04:28 WBC RBC Hgb Hct MCV MCH MCHC RDW Plt Count Seg Neuts % (Manual) Lymphocytes % (Manual) Seg Neutrophils # Man Lymphocytes # (Manual) Monocytes # (Manual) PT INR D-Dimer ABG pH ABG pO2 ABG HCO3 ABG O2 Saturation ABG Base Excess ABG Hemoglobin Oxyhemoglobin Sodium 149 H Potassium Chloride 112.2 H Carbon Dioxide BUN 34 H Creatinine Glucose 148 H POC Glucose 140 H 145 H Lactic Acid Calcium 7.9 L Phosphorus Magnesium AST 53 H ALT 203 H Alkaline Phosphatase Lactate Dehydrogenase Troponin T C-Reactive Protein NT-Pro-B Natriuret Pep Total Protein 4.9 L Albumin 2.6 L LDL Cholesterol Direct Vitamin B12 Vancomycin Trough Crossmatch 11/11/21 11/11/21 11/11/21 04:28 04:28 05:28 WBC 20.9 H RBC 3.47 L Hgb 7.5 L Hct 26.0 L MCV 75 L MCH 22 L MCHC 29 L RDW 21.6 H Plt Count 132 L Seg Neuts % (Manual) Lymphocytes % (Manual) Seg Neutrophils # Man Lymphocytes # (Manual) Monocytes # (Manual) PT INR D-Dimer 2655.00 H ABG pH ABG pO2 ABG HCO3 ABG O2 Saturation ABG Base Excess ABG Hemoglobin Oxyhemoglobin Sodium Potassium Chloride Carbon Dioxide BUN Creatinine Glucose POC Glucose 154 H Lactic Acid Calcium Phosphorus Magnesium AST ALT Alkaline Phosphatase Lactate Dehydrogenase Troponin T C-Reactive Protein NT-Pro-B Natriuret Pep Total Protein Albumin LDL Cholesterol Direct Vitamin B12 Vancomycin Trough Crossmatch 11/11/21 11/11/21 11/12/21 12:38 18:13 00:14 WBC RBC Hgb Hct MCV MCH MCHC RDW Plt Count Seg Neuts % (Manual) Lymphocytes % (Manual) Seg Neutrophils # Man Lymphocytes # (Manual) Monocytes # (Manual) PT INR D-Dimer ABG pH ABG pO2 ABG HCO3 ABG O2 Saturation ABG Base Excess ABG Hemoglobin Oxyhemoglobin Sodium Potassium Chloride Carbon Dioxide BUN Creatinine Glucose POC Glucose 137 H 108 H 137 H Lactic Acid Calcium Phosphorus Magnesium AST ALT Alkaline Phosphatase Lactate Dehydrogenase Troponin T C-Reactive Protein NT-Pro-B Natriuret Pep Total Protein Albumin LDL Cholesterol Direct Vitamin B12 Vancomycin Trough Crossmatch 11/12/21 11/12/21 11/12/21 05:40 06:24 11:12 WBC RBC Hgb Hct MCV MCH MCHC RDW Plt Count Seg Neuts % (Manual) Lymphocytes % (Manual) Seg Neutrophils # Man Lymphocytes # (Manual) Monocytes # (Manual) PT INR D-Dimer ABG pH 7.586 H ABG pO2 150.6 H ABG HCO3 27.2 H ABG O2 Saturation 99.1 H ABG Base Excess 5.2 H ABG Hemoglobin 7.5 L Oxyhemoglobin Sodium Potassium Chloride Carbon Dioxide BUN Creatinine Glucose POC Glucose 132 H 140 H Lactic Acid Calcium Phosphorus Magnesium AST ALT Alkaline Phosphatase Lactate Dehydrogenase Troponin T C-Reactive Protein NT-Pro-B Natriuret Pep Total Protein Albumin LDL Cholesterol Direct Vitamin B12 Vancomycin Trough Crossmatch 11/12/21 11/12/21 11/12/21 14:50 14:50 17:13 WBC 19.8 H RBC 3.27 L Hgb 7.1 L Hct 24.5 L MCV 75 L MCH 22 L MCHC 29 L RDW 22.3 H Plt Count Seg Neuts % (Manual) Lymphocytes % (Manual) Seg Neutrophils # Man Lymphocytes # (Manual) Monocytes # (Manual) PT INR D-Dimer ABG pH ABG pO2 ABG HCO3 ABG O2 Saturation ABG Base Excess ABG Hemoglobin Oxyhemoglobin Sodium 150 H Potassium 3.3 L Chloride 112.0 H Carbon Dioxide BUN 40 H Creatinine Glucose 151 H POC Glucose 121 H Lactic Acid Calcium 7.4 L Phosphorus 1.70 L Magnesium 1.40 L AST ALT Alkaline Phosphatase Lactate Dehydrogenase Troponin T C-Reactive Protein NT-Pro-B Natriuret Pep Total Protein Albumin LDL Cholesterol Direct Vitamin B12 Vancomycin Trough Crossmatch 11/12/21 11/13/21 11/13/21 23:19 05:34 06:30 WBC RBC Hgb Hct MCV MCH MCHC RDW Plt Count Seg Neuts % (Manual) Lymphocytes % (Manual) Seg Neutrophils # Man Lymphocytes # (Manual) Monocytes # (Manual) PT INR D-Dimer ABG pH ABG pO2 ABG HCO3 ABG O2 Saturation ABG Base Excess ABG Hemoglobin Oxyhemoglobin Sodium 149 H Potassium Chloride 60.0 L Carbon Dioxide BUN 40 H Creatinine Glucose 146 H POC Glucose 113 H 132 H Lactic Acid Calcium 7.3 L Phosphorus Magnesium 2.40 H AST ALT 72 H Alkaline Phosphatase Lactate Dehydrogenase Troponin T C-Reactive Protein NT-Pro-B Natriuret Pep Total Protein 5.2 L Albumin 2.2 L LDL Cholesterol Direct Vitamin B12 Vancomycin Trough Crossmatch 11/13/21 11/13/21 11/13/21 06:30 08:30 11:19 WBC 21.2 H RBC 3.12 L Hgb 6.8 L Hct 23.2 L MCV 74 L MCH 22 L MCHC 29 L RDW 22.2 H Plt Count 135 L Seg Neuts % (Manual) Lymphocytes % (Manual) Seg Neutrophils # Man Lymphocytes # (Manual) Monocytes # (Manual) PT INR D-Dimer ABG pH ABG pO2 ABG HCO3 ABG O2 Saturation ABG Base Excess ABG Hemoglobin Oxyhemoglobin Sodium Potassium Chloride Carbon Dioxide BUN Creatinine Glucose POC Glucose 136 H Lactic Acid Calcium Phosphorus Magnesium AST ALT Alkaline Phosphatase Lactate Dehydrogenase Troponin T C-Reactive Protein NT-Pro-B Natriuret Pep Total Protein Albumin LDL Cholesterol Direct Vitamin B12 Vancomycin Trough Crossmatch See Detail 11/13/21 11/14/21 11/14/21 18:21 00:01 04:46 WBC 20.0 H RBC 3.41 L Hgb 7.9 L Hct 26.8 L MCV MCH 23 L MCHC 29 L RDW 24.0 H Plt Count Seg Neuts % (Manual) Lymphocytes % (Manual) Seg Neutrophils # Man Lymphocytes # (Manual) Monocytes # (Manual) PT INR D-Dimer ABG pH ABG pO2 ABG HCO3 ABG O2 Saturation ABG Base Excess ABG Hemoglobin Oxyhemoglobin Sodium Potassium Chloride Carbon Dioxide BUN Creatinine Glucose POC Glucose 149 H 141 H Lactic Acid Calcium Phosphorus Magnesium AST ALT Alkaline Phosphatase Lactate Dehydrogenase Troponin T C-Reactive Protein NT-Pro-B Natriuret Pep Total Protein Albumin LDL Cholesterol Direct Vitamin B12 Vancomycin Trough Crossmatch 11/14/21 11/14/21 11/14/21 04:46 05:10 11:10 WBC RBC Hgb Hct MCV MCH MCHC RDW Plt Count Seg Neuts % (Manual) Lymphocytes % (Manual) Seg Neutrophils # Man Lymphocytes # (Manual) Monocytes # (Manual) PT INR D-Dimer ABG pH ABG pO2 ABG HCO3 ABG O2 Saturation ABG Base Excess ABG Hemoglobin Oxyhemoglobin Sodium 148 H Potassium Chloride 113.1 H Carbon Dioxide BUN 43 H Creatinine Glucose 140 H POC Glucose 132 H 133 H Lactic Acid Calcium 7.5 L Phosphorus Magnesium AST ALT Alkaline Phosphatase Lactate Dehydrogenase Troponin T C-Reactive Protein NT-Pro-B Natriuret Pep Total Protein Albumin LDL Cholesterol Direct Vitamin B12 Vancomycin Trough Crossmatch 11/14/21 11/14/21 11/14/21 16:14 17:48 23:23 WBC RBC Hgb Hct MCV MCH MCHC RDW Plt Count Seg Neuts % (Manual) Lymphocytes % (Manual) Seg Neutrophils # Man Lymphocytes # (Manual) Monocytes # (Manual) PT INR D-Dimer ABG pH ABG pO2 ABG HCO3 28.0 H ABG O2 Saturation ABG Base Excess 3.1 H ABG Hemoglobin 5.8 L Oxyhemoglobin 94.8 L Sodium Potassium Chloride Carbon Dioxide BUN Creatinine Glucose POC Glucose 130 H 136 H Lactic Acid Calcium Phosphorus Magnesium AST ALT Alkaline Phosphatase Lactate Dehydrogenase Troponin T C-Reactive Protein NT-Pro-B Natriuret Pep Total Protein Albumin LDL Cholesterol Direct Vitamin B12 Vancomycin Trough Crossmatch 11/15/21 11/15/21 11/15/21 05:20 05:50 05:50 WBC 19.9 H RBC 3.50 L Hgb 8.2 L Hct 27.9 L MCV MCH 23 L MCHC 29 L RDW 24.9 H Plt Count Seg Neuts % (Manual) Lymphocytes % (Manual) Seg Neutrophils # Man Lymphocytes # (Manual) Monocytes # (Manual) PT INR D-Dimer ABG pH ABG pO2 ABG HCO3 ABG O2 Saturation ABG Base Excess ABG Hemoglobin Oxyhemoglobin Sodium 149 H Potassium Chloride 112.0 H Carbon Dioxide BUN 48 H Creatinine Glucose 152 H POC Glucose 137 H Lactic Acid Calcium 7.9 L Phosphorus Magnesium AST ALT Alkaline Phosphatase Lactate Dehydrogenase Troponin T C-Reactive Protein NT-Pro-B Natriuret Pep Total Protein Albumin LDL Cholesterol Direct Vitamin B12 Vancomycin Trough Crossmatch 11/15/21 11/15/21 11/15/21 12:12 17:07 23:24 WBC RBC Hgb Hct MCV MCH MCHC RDW Plt Count Seg Neuts % (Manual) Lymphocytes % (Manual) Seg Neutrophils # Man Lymphocytes # (Manual) Monocytes # (Manual) PT INR D-Dimer ABG pH ABG pO2 ABG HCO3 ABG O2 Saturation ABG Base Excess ABG Hemoglobin Oxyhemoglobin Sodium Potassium Chloride Carbon Dioxide BUN Creatinine Glucose POC Glucose 114 H 135 H 123 H Lactic Acid Calcium Phosphorus Magnesium AST ALT Alkaline Phosphatase Lactate Dehydrogenase Troponin T C-Reactive Protein NT-Pro-B Natriuret Pep Total Protein Albumin LDL Cholesterol Direct Vitamin B12 Vancomycin Trough Crossmatch 11/16/21 11/16/21 11/16/21 05:21 10:00 10:00 WBC 21.7 H RBC 2.57 L Hgb 6.0 L Hct 20.2 L D MCV MCH 24 L MCHC RDW 26.3 H Plt Count Seg Neuts % (Manual) Lymphocytes % (Manual) Seg Neutrophils # Man Lymphocytes # (Manual) Monocytes # (Manual) PT INR D-Dimer ABG pH ABG pO2 ABG HCO3 ABG O2 Saturation ABG Base Excess ABG Hemoglobin Oxyhemoglobin Sodium 153 H Potassium Chloride 114.9 H Carbon Dioxide BUN 74 H Creatinine Glucose 155 H POC Glucose 127 H Lactic Acid Calcium 8.1 L Phosphorus Magnesium AST ALT Alkaline Phosphatase Lactate Dehydrogenase Troponin T C-Reactive Protein NT-Pro-B Natriuret Pep Total Protein Albumin LDL Cholesterol Direct Vitamin B12 Vancomycin Trough Crossmatch 11/16/21 11/16/21 11/16/21 11:34 14:00 15:25 WBC 17.2 H RBC 2.08 L Hgb 4.7 L* Hct 16.2 L* MCV 78 L MCH 23 L MCHC 29 L RDW 26.0 H Plt Count Seg Neuts % (Manual) 87.0 H Lymphocytes % (Manual) 8.0 L Seg Neutrophils # Man 15.0 H Lymphocytes # (Manual) Monocytes # (Manual) 0.9 H PT INR D-Dimer ABG pH ABG pO2 ABG HCO3 ABG O2 Saturation ABG Base Excess ABG Hemoglobin Oxyhemoglobin Sodium Potassium Chloride Carbon Dioxide BUN Creatinine Glucose POC Glucose 131 H Lactic Acid Calcium Phosphorus Magnesium AST ALT Alkaline Phosphatase Lactate Dehydrogenase Troponin T C-Reactive Protein NT-Pro-B Natriuret Pep Total Protein Albumin LDL Cholesterol Direct Vitamin B12 Vancomycin Trough Crossmatch See Detail 11/16/21 11/16/21 11/16/21 15:25 17:21 22:43 WBC RBC Hgb 8.6 L D Hct 27.7 L D MCV MCH MCHC RDW Plt Count Seg Neuts % (Manual) Lymphocytes % (Manual) Seg Neutrophils # Man Lymphocytes # (Manual) Monocytes # (Manual) PT INR D-Dimer ABG pH ABG pO2 ABG HCO3 ABG O2 Saturation ABG Base Excess ABG Hemoglobin Oxyhemoglobin Sodium 148 H Potassium Chloride 113.2 H Carbon Dioxide BUN 84 H Creatinine Glucose 164 H POC Glucose 124 H Lactic Acid Calcium 7.6 L Phosphorus Magnesium AST ALT Alkaline Phosphatase Lactate Dehydrogenase Troponin T C-Reactive Protein NT-Pro-B Natriuret Pep Total Protein Albumin LDL Cholesterol Direct Vitamin B12 Vancomycin Trough Crossmatch 11/16/21 11/17/21 11/17/21 23:07 05:33 05:56 WBC 25.1 H RBC 3.47 L Hgb 8.7 L Hct 28.5 L MCV MCH 25 L MCHC RDW 22.3 H Plt Count Seg Neuts % (Manual) Lymphocytes % (Manual) Seg Neutrophils # Man Lymphocytes # (Manual) Monocytes # (Manual) PT INR D-Dimer ABG pH ABG pO2 ABG HCO3 ABG O2 Saturation ABG Base Excess ABG Hemoglobin Oxyhemoglobin Sodium Potassium Chloride Carbon Dioxide BUN Creatinine Glucose POC Glucose 128 H 133 H Lactic Acid Calcium Phosphorus Magnesium AST ALT Alkaline Phosphatase Lactate Dehydrogenase Troponin T C-Reactive Protein NT-Pro-B Natriuret Pep Total Protein Albumin LDL Cholesterol Direct Vitamin B12 Vancomycin Trough Crossmatch 11/17/21 11/17/21 11/17/21 05:56 11:00 11:55 WBC RBC Hgb 8.3 L Hct 26.9 L MCV MCH MCHC RDW Plt Count Seg Neuts % (Manual) Lymphocytes % (Manual) Seg Neutrophils # Man Lymphocytes # (Manual) Monocytes # (Manual) PT INR D-Dimer ABG pH ABG pO2 ABG HCO3 ABG O2 Saturation ABG Base Excess ABG Hemoglobin Oxyhemoglobin Sodium 151 H Potassium Chloride 113.6 H Carbon Dioxide BUN 85 H Creatinine Glucose 132 H POC Glucose 121 H Lactic Acid Calcium 7.8 L Phosphorus Magnesium AST ALT Alkaline Phosphatase Lactate Dehydrogenase Troponin T C-Reactive Protein NT-Pro-B Natriuret Pep Total Protein 5.1 L Albumin 2.2 L LDL Cholesterol Direct Vitamin B12 Vancomycin Trough Crossmatch 11/17/21 11/17/21 11/18/21 18:04 18:55 00:26 WBC RBC Hgb 7.5 L 7.1 L Hct 24.8 L 23.6 L MCV MCH MCHC RDW Plt Count Seg Neuts % (Manual) Lymphocytes % (Manual) Seg Neutrophils # Man Lymphocytes # (Manual) Monocytes # (Manual) PT INR D-Dimer ABG pH ABG pO2 ABG HCO3 ABG O2 Saturation ABG Base Excess ABG Hemoglobin Oxyhemoglobin Sodium Potassium Chloride Carbon Dioxide BUN Creatinine Glucose POC Glucose 144 H Lactic Acid Calcium Phosphorus Magnesium AST ALT Alkaline Phosphatase Lactate Dehydrogenase Troponin T C-Reactive Protein NT-Pro-B Natriuret Pep Total Protein Albumin LDL Cholesterol Direct Vitamin B12 Vancomycin Trough Crossmatch 11/18/21 11/18/21 11/18/21 00:43 05:10 05:10 WBC 12.5 H RBC 2.39 L Hgb 6.1 L Hct 20.2 L MCV MCH 25 L MCHC RDW 23.2 H Plt Count Seg Neuts % (Manual) Lymphocytes % (Manual) Seg Neutrophils # Man Lymphocytes # (Manual) Monocytes # (Manual) PT INR D-Dimer ABG pH ABG pO2 ABG HCO3 ABG O2 Saturation ABG Base Excess ABG Hemoglobin Oxyhemoglobin Sodium 131 L D Potassium 2.9 L* D Chloride 97.8 L Carbon Dioxide BUN 58 H Creatinine Glucose 665 H* POC Glucose 139 H Lactic Acid Calcium 7.0 L Phosphorus 2.20 L D Magnesium 1.50 L AST ALT Alkaline Phosphatase Lactate Dehydrogenase Troponin T C-Reactive Protein NT-Pro-B Natriuret Pep Total Protein Albumin LDL Cholesterol Direct Vitamin B12 Vancomycin Trough Crossmatch 11/18/21 11/18/21 11/18/21 05:23 07:10 10:45 WBC RBC Hgb Hct MCV MCH MCHC RDW Plt Count Seg Neuts % (Manual) Lymphocytes % (Manual) Seg Neutrophils # Man Lymphocytes # (Manual) Monocytes # (Manual) PT INR D-Dimer ABG pH ABG pO2 ABG HCO3 ABG O2 Saturation ABG Base Excess ABG Hemoglobin Oxyhemoglobin Sodium 148 H D Potassium 3.1 L Chloride 111.9 H Carbon Dioxide BUN 63 H Creatinine Glucose 141 H POC Glucose 124 H Lactic Acid Calcium 8.1 L D Phosphorus Magnesium AST ALT Alkaline Phosphatase Lactate Dehydrogenase Troponin T C-Reactive Protein NT-Pro-B Natriuret Pep Total Protein Albumin LDL Cholesterol Direct Vitamin B12 Vancomycin Trough Crossmatch See Detail 11/18/21 11/19/21 11/19/21 11:57 00:19 04:55 WBC RBC 3.35 L Hgb 9.0 L 8.9 L Hct 28.3 L D 28.1 L MCV MCH 27 L MCHC RDW 20.3 H Plt Count Seg Neuts % (Manual) Lymphocytes % (Manual) Seg Neutrophils # Man Lymphocytes # (Manual) Monocytes # (Manual) PT INR D-Dimer ABG pH ABG pO2 ABG HCO3 ABG O2 Saturation ABG Base Excess ABG Hemoglobin Oxyhemoglobin Sodium Potassium Chloride Carbon Dioxide BUN Creatinine Glucose POC Glucose 119 H Lactic Acid Calcium Phosphorus Magnesium AST ALT Alkaline Phosphatase Lactate Dehydrogenase Troponin T C-Reactive Protein NT-Pro-B Natriuret Pep Total Protein Albumin LDL Cholesterol Direct Vitamin B12 Vancomycin Trough Crossmatch 11/19/21 11/19/21 11/20/21 04:55 05:42 00:55 WBC RBC Hgb 9.0 L Hct 28.6 L MCV MCH MCHC RDW Plt Count Seg Neuts % (Manual) Lymphocytes % (Manual) Seg Neutrophils # Man Lymphocytes # (Manual) Monocytes # (Manual) PT INR D-Dimer ABG pH ABG pO2 ABG HCO3 ABG O2 Saturation ABG Base Excess ABG Hemoglobin Oxyhemoglobin Sodium Potassium 3.5 L Chloride 108.6 H Carbon Dioxide BUN 47 H Creatinine Glucose 207 H POC Glucose 63 L Lactic Acid Calcium 7.1 L Phosphorus Magnesium AST ALT Alkaline Phosphatase Lactate Dehydrogenase Troponin T C-Reactive Protein NT-Pro-B Natriuret Pep Total Protein Albumin LDL Cholesterol Direct Vitamin B12 Vancomycin Trough Crossmatch 11/20/21 11/20/21 11/20/21 05:40 05:40 Unknown WBC RBC 3.40 L Hgb 9.1 L Hct 28.8 L MCV MCH 27 L MCHC RDW 20.7 H Plt Count Seg Neuts % (Manual) Lymphocytes % (Manual) Seg Neutrophils # Man Lymphocytes # (Manual) Monocytes # (Manual) PT INR D-Dimer ABG pH ABG pO2 ABG HCO3 ABG O2 Saturation ABG Base Excess -2.7 L ABG Hemoglobin 9.5 L Oxyhemoglobin 94.3 L Sodium Potassium 3.5 L Chloride 108.9 H Carbon Dioxide BUN 37 H Creatinine Glucose 117 H POC Glucose Lactic Acid Calcium 7.5 L Phosphorus Magnesium AST ALT Alkaline Phosphatase Lactate Dehydrogenase Troponin T C-Reactive Protein NT-Pro-B Natriuret Pep Total Protein Albumin LDL Cholesterol Direct Vitamin B12 Vancomycin Trough Crossmatch 11/21/21 11/21/21 11/21/21 04:30 04:30 16:00 WBC RBC 3.25 L Hgb 8.6 L Hct 28.1 L MCV MCH 26 L MCHC RDW 20.7 H Plt Count Seg Neuts % (Manual) Lymphocytes % (Manual) Seg Neutrophils # Man Lymphocytes # (Manual) Monocytes # (Manual) PT INR D-Dimer ABG pH ABG pO2 114.2 H ABG HCO3 ABG O2 Saturation ABG Base Excess ABG Hemoglobin 9.1 L Oxyhemoglobin Sodium 134 L Potassium Chloride Carbon Dioxide 20 L BUN 34 H Creatinine Glucose POC Glucose Lactic Acid Calcium 7.1 L Phosphorus Magnesium AST ALT Alkaline Phosphatase Lactate Dehydrogenase Troponin T C-Reactive Protein NT-Pro-B Natriuret Pep Total Protein Albumin LDL Cholesterol Direct Vitamin B12 Vancomycin Trough Crossmatch 11/22/21 11/22/21 11/22/21 07:07 07:07 23:54 WBC RBC 3.30 L Hgb 9.0 L Hct 28.5 L MCV MCH 27 L MCHC RDW 21.0 H Plt Count Seg Neuts % (Manual) Lymphocytes % (Manual) Seg Neutrophils # Man Lymphocytes # (Manual) Monocytes # (Manual) PT INR D-Dimer ABG pH ABG pO2 ABG HCO3 ABG O2 Saturation ABG Base Excess ABG Hemoglobin Oxyhemoglobin Sodium Potassium Chloride Carbon Dioxide BUN 32 H Creatinine Glucose 106 H POC Glucose 110 H Lactic Acid Calcium 7.5 L Phosphorus Magnesium AST ALT Alkaline Phosphatase Lactate Dehydrogenase Troponin T C-Reactive Protein NT-Pro-B Natriuret Pep Total Protein Albumin LDL Cholesterol Direct Vitamin B12 Vancomycin Trough Crossmatch 11/23/21 11/23/21 11/23/21 04:38 04:38 06:01 WBC RBC 3.23 L Hgb 8.8 L Hct 28.0 L MCV MCH 27 L MCHC RDW 21.3 H Plt Count Seg Neuts % (Manual) Lymphocytes % (Manual) Seg Neutrophils # Man Lymphocytes # (Manual) Monocytes # (Manual) PT INR D-Dimer ABG pH ABG pO2 ABG HCO3 ABG O2 Saturation ABG Base Excess ABG Hemoglobin Oxyhemoglobin Sodium 136 L Potassium Chloride Carbon Dioxide 20 L BUN 32 H Creatinine Glucose 109 H POC Glucose 115 H Lactic Acid Calcium 7.7 L Phosphorus Magnesium AST ALT Alkaline Phosphatase Lactate Dehydrogenase Troponin T C-Reactive Protein NT-Pro-B Natriuret Pep Total Protein Albumin LDL Cholesterol Direct Vitamin B12 Vancomycin Trough Crossmatch 11/23/21 11/24/21 11/24/21 11:40 00:03 04:13 WBC RBC 3.18 L Hgb 8.5 L Hct 27.5 L MCV MCH 27 L MCHC RDW 21.6 H Plt Count Seg Neuts % (Manual) Lymphocytes % (Manual) Seg Neutrophils # Man Lymphocytes # (Manual) Monocytes # (Manual) PT INR D-Dimer ABG pH ABG pO2 ABG HCO3 ABG O2 Saturation ABG Base Excess ABG Hemoglobin Oxyhemoglobin Sodium Potassium Chloride Carbon Dioxide BUN Creatinine Glucose POC Glucose 117 H 111 H Lactic Acid Calcium Phosphorus Magnesium AST ALT Alkaline Phosphatase Lactate Dehydrogenase Troponin T C-Reactive Protein NT-Pro-B Natriuret Pep Total Protein Albumin LDL Cholesterol Direct Vitamin B12 Vancomycin Trough Crossmatch 11/24/21 11/24/21 11/24/21 04:13 05:30 11:10 WBC RBC Hgb Hct MCV MCH MCHC RDW Plt Count Seg Neuts % (Manual) Lymphocytes % (Manual) Seg Neutrophils # Man Lymphocytes # (Manual) Monocytes # (Manual) PT INR D-Dimer ABG pH ABG pO2 ABG HCO3 ABG O2 Saturation ABG Base Excess ABG Hemoglobin Oxyhemoglobin Sodium Potassium Chloride Carbon Dioxide BUN 31 H Creatinine Glucose 101 H POC Glucose 115 H 107 H Lactic Acid Calcium 7.7 L Phosphorus Magnesium AST ALT Alkaline Phosphatase Lactate Dehydrogenase Troponin T C-Reactive Protein NT-Pro-B Natriuret Pep Total Protein Albumin LDL Cholesterol Direct Vitamin B12 Vancomycin Trough Crossmatch 11/24/21 11/24/21 11/25/21 16:34 17:57 05:12 WBC RBC 3.11 L Hgb 8.2 L Hct 26.6 L MCV MCH 26 L MCHC RDW 21.3 H Plt Count Seg Neuts % (Manual) Lymphocytes % (Manual) Seg Neutrophils # Man Lymphocytes # (Manual) Monocytes # (Manual) PT INR D-Dimer ABG pH ABG pO2 ABG HCO3 ABG O2 Saturation ABG Base Excess ABG Hemoglobin Oxyhemoglobin Sodium Potassium Chloride Carbon Dioxide BUN Creatinine Glucose POC Glucose 115 H 110 H Lactic Acid Calcium Phosphorus Magnesium AST ALT Alkaline Phosphatase Lactate Dehydrogenase Troponin T C-Reactive Protein NT-Pro-B Natriuret Pep Total Protein Albumin LDL Cholesterol Direct Vitamin B12 Vancomycin Trough Crossmatch 11/25/21 11/25/21 11/26/21 05:12 11:20 05:00 WBC RBC 3.30 L Hgb 8.8 L Hct 28.2 L MCV MCH 27 L MCHC RDW 20.7 H Plt Count Seg Neuts % (Manual) Lymphocytes % (Manual) Seg Neutrophils # Man Lymphocytes # (Manual) Monocytes # (Manual) PT INR D-Dimer ABG pH ABG pO2 ABG HCO3 ABG O2 Saturation ABG Base Excess ABG Hemoglobin Oxyhemoglobin Sodium Potassium Chloride Carbon Dioxide BUN 32 H Creatinine Glucose 118 H POC Glucose 118 H Lactic Acid Calcium 8.2 L Phosphorus Magnesium AST ALT Alkaline Phosphatase Lactate Dehydrogenase Troponin T C-Reactive Protein NT-Pro-B Natriuret Pep Total Protein Albumin LDL Cholesterol Direct Vitamin B12 Vancomycin Trough Crossmatch 11/26/21 11/26/21 11/26/21 05:00 05:00 05:44 WBC RBC Hgb Hct MCV MCH MCHC RDW Plt Count Seg Neuts % (Manual) Lymphocytes % (Manual) Seg Neutrophils # Man Lymphocytes # (Manual) Monocytes # (Manual) PT 16.9 H INR 1.24 H D-Dimer ABG pH ABG pO2 ABG HCO3 ABG O2 Saturation ABG Base Excess ABG Hemoglobin Oxyhemoglobin Sodium Potassium Chloride Carbon Dioxide BUN 31 H Creatinine Glucose 104 H POC Glucose 110 H Lactic Acid Calcium 7.9 L Phosphorus Magnesium AST ALT Alkaline Phosphatase Lactate Dehydrogenase Troponin T C-Reactive Protein NT-Pro-B Natriuret Pep Total Protein Albumin LDL Cholesterol Direct Vitamin B12 Vancomycin Trough Crossmatch 11/26/21 11/27/21 11/27/21 23:55 07:40 07:40 WBC RBC 3.18 L Hgb 8.5 L Hct 27.0 L MCV MCH 27 L MCHC RDW 21.2 H Plt Count Seg Neuts % (Manual) Lymphocytes % (Manual) Seg Neutrophils # Man Lymphocytes # (Manual) Monocytes # (Manual) PT INR D-Dimer ABG pH ABG pO2 ABG HCO3 ABG O2 Saturation ABG Base Excess ABG Hemoglobin Oxyhemoglobin Sodium Potassium Chloride Carbon Dioxide BUN 27 H Creatinine Glucose 112 H POC Glucose 63 L Lactic Acid Calcium 7.6 L Phosphorus Magnesium AST ALT Alkaline Phosphatase Lactate Dehydrogenase Troponin T C-Reactive Protein NT-Pro-B Natriuret Pep Total Protein Albumin LDL Cholesterol Direct Vitamin B12 Vancomycin Trough Crossmatch 11/27/21 11/27/21 11/27/21 12:04 13:40 13:40 WBC RBC 3.31 L Hgb 8.7 L Hct 28.0 L MCV MCH 26 L MCHC RDW 20.7 H Plt Count Seg Neuts % (Manual) Lymphocytes % (Manual) Seg Neutrophils # Man Lymphocytes # (Manual) Monocytes # (Manual) PT INR D-Dimer ABG pH ABG pO2 ABG HCO3 ABG O2 Saturation ABG Base Excess ABG Hemoglobin Oxyhemoglobin Sodium 136 L Potassium Chloride Carbon Dioxide BUN 25 H Creatinine Glucose 127 H POC Glucose 109 H Lactic Acid Calcium 7.6 L Phosphorus Magnesium 1.40 L AST ALT Alkaline Phosphatase Lactate Dehydrogenase Troponin T C-Reactive Protein NT-Pro-B Natriuret Pep Total Protein Albumin LDL Cholesterol Direct Vitamin B12 Vancomycin Trough Crossmatch 11/27/21 11/27/21 11/28/21 17:44 23:33 12:20 WBC RBC Hgb Hct MCV MCH MCHC RDW Plt Count Seg Neuts % (Manual) Lymphocytes % (Manual) Seg Neutrophils # Man Lymphocytes # (Manual) Monocytes # (Manual) PT INR D-Dimer ABG pH ABG pO2 ABG HCO3 ABG O2 Saturation ABG Base Excess ABG Hemoglobin Oxyhemoglobin Sodium Potassium Chloride Carbon Dioxide BUN Creatinine Glucose POC Glucose 107 H 108 H 114 H Lactic Acid Calcium Phosphorus Magnesium AST ALT Alkaline Phosphatase Lactate Dehydrogenase Troponin T C-Reactive Protein NT-Pro-B Natriuret Pep Total Protein Albumin LDL Cholesterol Direct Vitamin B12 Vancomycin Trough Crossmatch 11/29/21 11/29/21 11/29/21 00:09 03:20 03:20 WBC RBC 3.05 L Hgb 8.2 L Hct 25.8 L MCV MCH 27 L MCHC RDW 20.9 H Plt Count Seg Neuts % (Manual) Lymphocytes % (Manual) Seg Neutrophils # Man Lymphocytes # (Manual) Monocytes # (Manual) PT INR D-Dimer ABG pH ABG pO2 ABG HCO3 ABG O2 Saturation ABG Base Excess ABG Hemoglobin Oxyhemoglobin Sodium 133 L Potassium Chloride Carbon Dioxide BUN 24 H Creatinine Glucose 137 H POC Glucose 134 H Lactic Acid Calcium 7.4 L Phosphorus Magnesium AST ALT Alkaline Phosphatase Lactate Dehydrogenase Troponin T C-Reactive Protein NT-Pro-B Natriuret Pep Total Protein Albumin LDL Cholesterol Direct Vitamin B12 Vancomycin Trough Crossmatch 11/29/21 11/29/21 11/29/21 05:38 11:39 17:11 WBC RBC Hgb Hct MCV MCH MCHC RDW Plt Count Seg Neuts % (Manual) Lymphocytes % (Manual) Seg Neutrophils # Man Lymphocytes # (Manual) Monocytes # (Manual) PT INR D-Dimer ABG pH ABG pO2 ABG HCO3 ABG O2 Saturation ABG Base Excess ABG Hemoglobin Oxyhemoglobin Sodium Potassium Chloride Carbon Dioxide BUN Creatinine Glucose POC Glucose 117 H 143 H 124 H Lactic Acid Calcium Phosphorus Magnesium AST ALT Alkaline Phosphatase Lactate Dehydrogenase Troponin T C-Reactive Protein NT-Pro-B Natriuret Pep Total Protein Albumin LDL Cholesterol Direct Vitamin B12 Vancomycin Trough Crossmatch 11/29/21 11/30/21 11/30/21 20:15 05:40 05:40 WBC 12.6 H RBC 3.41 L Hgb 9.1 L Hct 28.9 L MCV MCH 27 L MCHC RDW 20.4 H Plt Count Seg Neuts % (Manual) Lymphocytes % (Manual) Seg Neutrophils # Man Lymphocytes # (Manual) Monocytes # (Manual) PT INR D-Dimer ABG pH ABG pO2 ABG HCO3 ABG O2 Saturation ABG Base Excess ABG Hemoglobin Oxyhemoglobin Sodium Potassium Chloride Carbon Dioxide BUN 24 H Creatinine Glucose 131 H POC Glucose Lactic Acid Calcium 7.6 L Phosphorus Magnesium AST ALT Alkaline Phosphatase Lactate Dehydrogenase Troponin T 0.045 H C-Reactive Protein NT-Pro-B Natriuret Pep Total Protein Albumin LDL Cholesterol Direct 25 L Vitamin B12 Vancomycin Trough Crossmatch 11/30/21 11/30/21 12/01/21 11:29 16:51 05:00 WBC RBC 2.97 L Hgb 8.0 L Hct 25.0 L MCV MCH 27 L MCHC RDW 20.8 H Plt Count Seg Neuts % (Manual) Lymphocytes % (Manual) Seg Neutrophils # Man Lymphocytes # (Manual) Monocytes # (Manual) PT INR D-Dimer ABG pH ABG pO2 ABG HCO3 ABG O2 Saturation ABG Base Excess ABG Hemoglobin Oxyhemoglobin Sodium Potassium Chloride Carbon Dioxide BUN Creatinine Glucose POC Glucose 123 H 114 H Lactic Acid Calcium Phosphorus Magnesium AST ALT Alkaline Phosphatase Lactate Dehydrogenase Troponin T C-Reactive Protein NT-Pro-B Natriuret Pep Total Protein Albumin LDL Cholesterol Direct Vitamin B12 Vancomycin Trough Crossmatch 12/01/21 12/01/21 12/01/21 05:00 05:25 11:54 WBC RBC Hgb Hct MCV MCH MCHC RDW Plt Count Seg Neuts % (Manual) Lymphocytes % (Manual) Seg Neutrophils # Man Lymphocytes # (Manual) Monocytes # (Manual) PT INR D-Dimer ABG pH ABG pO2 ABG HCO3 ABG O2 Saturation ABG Base Excess ABG Hemoglobin Oxyhemoglobin Sodium 136 L Potassium Chloride Carbon Dioxide BUN 24 H Creatinine Glucose 117 H POC Glucose 108 H 107 H Lactic Acid Calcium 7.5 L Phosphorus Magnesium 1.60 L AST ALT Alkaline Phosphatase Lactate Dehydrogenase Troponin T C-Reactive Protein NT-Pro-B Natriuret Pep Total Protein Albumin LDL Cholesterol Direct Vitamin B12 Vancomycin Trough Crossmatch 12/01/21 12/02/21 12/02/21 17:40 00:07 04:20 WBC RBC 2.92 L Hgb 7.7 L Hct 24.3 L MCV MCH 26 L MCHC RDW 20.5 H Plt Count Seg Neuts % (Manual) Lymphocytes % (Manual) Seg Neutrophils # Man Lymphocytes # (Manual) Monocytes # (Manual) PT INR D-Dimer ABG pH ABG pO2 ABG HCO3 ABG O2 Saturation ABG Base Excess ABG Hemoglobin Oxyhemoglobin Sodium Potassium Chloride Carbon Dioxide BUN Creatinine Glucose POC Glucose 123 H 110 H Lactic Acid Calcium Phosphorus Magnesium AST ALT Alkaline Phosphatase Lactate Dehydrogenase Troponin T C-Reactive Protein NT-Pro-B Natriuret Pep Total Protein Albumin LDL Cholesterol Direct Vitamin B12 Vancomycin Trough Crossmatch 12/02/21 12/02/21 12/02/21 04:20 11:17 18:20 WBC RBC Hgb Hct MCV MCH MCHC RDW Plt Count Seg Neuts % (Manual) Lymphocytes % (Manual) Seg Neutrophils # Man Lymphocytes # (Manual) Monocytes # (Manual) PT INR D-Dimer ABG pH ABG pO2 ABG HCO3 ABG O2 Saturation ABG Base Excess ABG Hemoglobin Oxyhemoglobin Sodium 135 L Potassium Chloride Carbon Dioxide BUN 26 H Creatinine Glucose 121 H POC Glucose 117 H 113 H Lactic Acid Calcium 7.4 L Phosphorus Magnesium AST ALT Alkaline Phosphatase Lactate Dehydrogenase Troponin T C-Reactive Protein NT-Pro-B Natriuret Pep Total Protein Albumin LDL Cholesterol Direct Vitamin B12 Vancomycin Trough Crossmatch 12/03/21 12/03/21 12/03/21 00:12 04:00 04:00 WBC RBC 2.99 L Hgb 7.8 L Hct 24.6 L MCV MCH 26 L MCHC RDW 20.2 H Plt Count Seg Neuts % (Manual) Lymphocytes % (Manual) Seg Neutrophils # Man Lymphocytes # (Manual) Monocytes # (Manual) PT INR D-Dimer ABG pH ABG pO2 ABG HCO3 ABG O2 Saturation ABG Base Excess ABG Hemoglobin Oxyhemoglobin Sodium 136 L Potassium Chloride Carbon Dioxide BUN 27 H Creatinine Glucose 133 H POC Glucose 121 H Lactic Acid Calcium 7.5 L Phosphorus Magnesium AST ALT Alkaline Phosphatase Lactate Dehydrogenase Troponin T C-Reactive Protein NT-Pro-B Natriuret Pep Total Protein Albumin LDL Cholesterol Direct Vitamin B12 Vancomycin Trough Crossmatch 12/03/21 12/03/21 12/03/21 06:30 11:13 16:00 WBC RBC Hgb Hct MCV MCH MCHC RDW Plt Count Seg Neuts % (Manual) Lymphocytes % (Manual) Seg Neutrophils # Man Lymphocytes # (Manual) Monocytes # (Manual) PT INR D-Dimer ABG pH ABG pO2 ABG HCO3 ABG O2 Saturation ABG Base Excess ABG Hemoglobin Oxyhemoglobin Sodium Potassium Chloride Carbon Dioxide BUN Creatinine Glucose POC Glucose 129 H 125 H 125 H Lactic Acid Calcium Phosphorus Magnesium AST ALT Alkaline Phosphatase Lactate Dehydrogenase Troponin T C-Reactive Protein NT-Pro-B Natriuret Pep Total Protein Albumin LDL Cholesterol Direct Vitamin B12 Vancomycin Trough Crossmatch 12/03/21 12/04/21 12/04/21 23:32 04:00 05:36 WBC RBC Hgb Hct MCV MCH MCHC RDW Plt Count Seg Neuts % (Manual) Lymphocytes % (Manual) Seg Neutrophils # Man Lymphocytes # (Manual) Monocytes # (Manual) PT INR D-Dimer ABG pH ABG pO2 ABG HCO3 ABG O2 Saturation ABG Base Excess ABG Hemoglobin Oxyhemoglobin Sodium Potassium 3.5 L Chloride Carbon Dioxide BUN 26 H Creatinine 0.5 L Glucose 151 H POC Glucose 133 H 142 H Lactic Acid Calcium 8.3 L Phosphorus Magnesium AST ALT Alkaline Phosphatase Lactate Dehydrogenase Troponin T C-Reactive Protein NT-Pro-B Natriuret Pep Total Protein Albumin LDL Cholesterol Direct Vitamin B12 Vancomycin Trough Crossmatch 12/04/21 12/04/21 12/05/21 11:24 15:58 04:36 WBC RBC Hgb Hct MCV MCH MCHC RDW Plt Count Seg Neuts % (Manual) Lymphocytes % (Manual) Seg Neutrophils # Man Lymphocytes # (Manual) Monocytes # (Manual) PT INR D-Dimer ABG pH ABG pO2 ABG HCO3 ABG O2 Saturation ABG Base Excess ABG Hemoglobin Oxyhemoglobin Sodium Potassium Chloride Carbon Dioxide BUN 21 H Creatinine 0.5 L Glucose 119 H POC Glucose 130 H 111 H Lactic Acid Calcium 8.3 L Phosphorus Magnesium AST ALT Alkaline Phosphatase Lactate Dehydrogenase Troponin T C-Reactive Protein NT-Pro-B Natriuret Pep Total Protein Albumin LDL Cholesterol Direct Vitamin B12 Vancomycin Trough Crossmatch 12/05/21 12/05/21 12/05/21 05:15 10:40 11:12 WBC RBC 2.98 L Hgb 8.1 L Hct 24.6 L MCV MCH 27 L MCHC RDW 20.8 H Plt Count Seg Neuts % (Manual) Lymphocytes % (Manual) Seg Neutrophils # Man Lymphocytes # (Manual) Monocytes # (Manual) PT INR D-Dimer ABG pH ABG pO2 ABG HCO3 ABG O2 Saturation ABG Base Excess ABG Hemoglobin Oxyhemoglobin Sodium Potassium Chloride Carbon Dioxide BUN Creatinine Glucose POC Glucose 107 H 110 H Lactic Acid Calcium Phosphorus Magnesium AST ALT Alkaline Phosphatase Lactate Dehydrogenase Troponin T C-Reactive Protein NT-Pro-B Natriuret Pep Total Protein Albumin LDL Cholesterol Direct Vitamin B12 Vancomycin Trough Crossmatch 12/05/21 12/06/21 12/06/21 23:39 04:25 04:25 WBC RBC 2.95 L Hgb 7.9 L Hct 24.7 L MCV MCH 27 L MCHC RDW 20.9 H Plt Count Seg Neuts % (Manual) Lymphocytes % (Manual) Seg Neutrophils # Man Lymphocytes # (Manual) Monocytes # (Manual) PT INR D-Dimer ABG pH ABG pO2 ABG HCO3 ABG O2 Saturation ABG Base Excess ABG Hemoglobin Oxyhemoglobin Sodium Potassium Chloride Carbon Dioxide BUN 22 H Creatinine 0.5 L Glucose 136 H POC Glucose 118 H Lactic Acid Calcium 8.2 L Phosphorus Magnesium AST ALT Alkaline Phosphatase Lactate Dehydrogenase Troponin T C-Reactive Protein NT-Pro-B Natriuret Pep Total Protein Albumin LDL Cholesterol Direct Vitamin B12 Vancomycin Trough Crossmatch 12/06/21 12/06/21 12/07/21 05:28 11:27 04:00 WBC RBC Hgb 7.2 L Hct 21.8 L MCV MCH MCHC RDW Plt Count Seg Neuts % (Manual) Lymphocytes % (Manual) Seg Neutrophils # Man Lymphocytes # (Manual) Monocytes # (Manual) PT INR D-Dimer ABG pH ABG pO2 ABG HCO3 ABG O2 Saturation ABG Base Excess ABG Hemoglobin Oxyhemoglobin Sodium Potassium Chloride Carbon Dioxide BUN Creatinine Glucose POC Glucose 142 H 126 H Lactic Acid Calcium Phosphorus Magnesium AST ALT Alkaline Phosphatase Lactate Dehydrogenase Troponin T C-Reactive Protein NT-Pro-B Natriuret Pep Total Protein Albumin LDL Cholesterol Direct Vitamin B12 Vancomycin Trough Crossmatch 12/07/21 12/07/21 12/07/21 04:00 05:30 11:12 WBC RBC Hgb Hct MCV MCH MCHC RDW Plt Count Seg Neuts % (Manual) Lymphocytes % (Manual) Seg Neutrophils # Man Lymphocytes # (Manual) Monocytes # (Manual) PT INR D-Dimer ABG pH ABG pO2 ABG HCO3 ABG O2 Saturation ABG Base Excess ABG Hemoglobin Oxyhemoglobin Sodium Potassium Chloride Carbon Dioxide BUN 22 H Creatinine Glucose 119 H POC Glucose 121 H 124 H Lactic Acid Calcium 8.0 L Phosphorus Magnesium AST ALT Alkaline Phosphatase Lactate Dehydrogenase Troponin T C-Reactive Protein NT-Pro-B Natriuret Pep Total Protein Albumin LDL Cholesterol Direct Vitamin B12 Vancomycin Trough Crossmatch 12/08/21 12/08/21 12/08/21 04:00 04:00 05:39 WBC RBC 2.81 L Hgb 7.7 L Hct 23.5 L MCV MCH MCHC RDW 21.2 H Plt Count Seg Neuts % (Manual) Lymphocytes % (Manual) Seg Neutrophils # Man Lymphocytes # (Manual) Monocytes # (Manual) PT INR D-Dimer ABG pH ABG pO2 ABG HCO3 ABG O2 Saturation ABG Base Excess ABG Hemoglobin Oxyhemoglobin Sodium 135 L Potassium Chloride Carbon Dioxide BUN 23 H Creatinine Glucose 109 H POC Glucose 112 H Lactic Acid Calcium Phosphorus Magnesium AST ALT Alkaline Phosphatase Lactate Dehydrogenase Troponin T C-Reactive Protein NT-Pro-B Natriuret Pep Total Protein Albumin LDL Cholesterol Direct Vitamin B12 Vancomycin Trough Crossmatch 12/08/21 12/09/21 12/09/21 11:03 04:20 04:20 WBC RBC 2.67 L Hgb 7.6 L Hct 22.1 L MCV MCH MCHC RDW 20.8 H Plt Count Seg Neuts % (Manual) Lymphocytes % (Manual) Seg Neutrophils # Man Lymphocytes # (Manual) Monocytes # (Manual) PT INR D-Dimer ABG pH ABG pO2 ABG HCO3 ABG O2 Saturation ABG Base Excess ABG Hemoglobin Oxyhemoglobin Sodium 135 L Potassium Chloride 97.8 L Carbon Dioxide BUN 26 H Creatinine Glucose 119 H POC Glucose 108 H Lactic Acid Calcium 7.7 L Phosphorus Magnesium AST ALT Alkaline Phosphatase Lactate Dehydrogenase Troponin T C-Reactive Protein NT-Pro-B Natriuret Pep Total Protein Albumin LDL Cholesterol Direct Vitamin B12 Vancomycin Trough Crossmatch 12/09/21 12/10/21 12/10/21 11:26 04:33 11:12 WBC RBC Hgb Hct MCV MCH MCHC RDW Plt Count Seg Neuts % (Manual) Lymphocytes % (Manual) Seg Neutrophils # Man Lymphocytes # (Manual) Monocytes # (Manual) PT INR D-Dimer ABG pH ABG pO2 ABG HCO3 ABG O2 Saturation ABG Base Excess ABG Hemoglobin Oxyhemoglobin Sodium 136 L Potassium Chloride Carbon Dioxide BUN 27 H Creatinine Glucose 117 H POC Glucose 110 H 117 H Lactic Acid Calcium 8.2 L Phosphorus Magnesium AST ALT Alkaline Phosphatase Lactate Dehydrogenase Troponin T C-Reactive Protein NT-Pro-B Natriuret Pep Total Protein Albumin LDL Cholesterol Direct Vitamin B12 Vancomycin Trough Crossmatch 12/10/21 12/10/21 12/11/21 16:02 23:31 04:35 WBC RBC 2.57 L Hgb 7.0 L Hct 21.4 L MCV MCH 27 L MCHC RDW 21.1 H Plt Count Seg Neuts % (Manual) Lymphocytes % (Manual) Seg Neutrophils # Man Lymphocytes # (Manual) Monocytes # (Manual) PT INR D-Dimer ABG pH ABG pO2 ABG HCO3 ABG O2 Saturation ABG Base Excess ABG Hemoglobin Oxyhemoglobin Sodium Potassium Chloride Carbon Dioxide BUN Creatinine Glucose POC Glucose 137 H 111 H Lactic Acid Calcium Phosphorus Magnesium AST ALT Alkaline Phosphatase Lactate Dehydrogenase Troponin T C-Reactive Protein NT-Pro-B Natriuret Pep Total Protein Albumin LDL Cholesterol Direct Vitamin B12 Vancomycin Trough Crossmatch 12/11/21 12/11/21 12/11/21 04:35 12:46 16:07 WBC RBC Hgb Hct MCV MCH MCHC RDW Plt Count Seg Neuts % (Manual) Lymphocytes % (Manual) Seg Neutrophils # Man Lymphocytes # (Manual) Monocytes # (Manual) PT INR D-Dimer ABG pH ABG pO2 ABG HCO3 ABG O2 Saturation ABG Base Excess ABG Hemoglobin Oxyhemoglobin Sodium 136 L Potassium Chloride Carbon Dioxide BUN 27 H Creatinine Glucose 112 H POC Glucose 115 H 111 H Lactic Acid Calcium 7.6 L Phosphorus Magnesium AST ALT Alkaline Phosphatase Lactate Dehydrogenase Troponin T C-Reactive Protein NT-Pro-B Natriuret Pep Total Protein Albumin LDL Cholesterol Direct Vitamin B12 Vancomycin Trough Crossmatch 12/11/21 12/12/21 12/12/21 23:42 04:30 04:30 WBC RBC 2.60 L Hgb 7.1 L Hct 21.5 L MCV MCH 27 L MCHC RDW 20.3 H Plt Count Seg Neuts % (Manual) Lymphocytes % (Manual) Seg Neutrophils # Man Lymphocytes # (Manual) Monocytes # (Manual) PT INR D-Dimer ABG pH ABG pO2 ABG HCO3 ABG O2 Saturation ABG Base Excess ABG Hemoglobin Oxyhemoglobin Sodium 135 L Potassium Chloride 97.9 L Carbon Dioxide BUN 26 H Creatinine 0.5 L Glucose 138 H POC Glucose 115 H Lactic Acid Calcium 8.2 L Phosphorus Magnesium AST ALT Alkaline Phosphatase Lactate Dehydrogenase Troponin T C-Reactive Protein NT-Pro-B Natriuret Pep Total Protein Albumin LDL Cholesterol Direct Vitamin B12 Vancomycin Trough Crossmatch 12/12/21 12/12/21 12/12/21 04:30 05:10 11:51 WBC RBC Hgb Hct MCV MCH MCHC RDW Plt Count Seg Neuts % (Manual) Lymphocytes % (Manual) Seg Neutrophils # Man Lymphocytes # (Manual) Monocytes # (Manual) PT INR D-Dimer ABG pH ABG pO2 ABG HCO3 ABG O2 Saturation ABG Base Excess ABG Hemoglobin Oxyhemoglobin Sodium Potassium Chloride Carbon Dioxide BUN Creatinine Glucose POC Glucose 119 H 119 H Lactic Acid Calcium Phosphorus Magnesium AST ALT Alkaline Phosphatase Lactate Dehydrogenase Troponin T C-Reactive Protein NT-Pro-B Natriuret Pep Total Protein Albumin LDL Cholesterol Direct Vitamin B12 Vancomycin Trough Crossmatch See Detail 12/13/21 12/13/21 12/13/21 00:52 04:00 04:00 WBC RBC 2.73 L Hgb 7.4 L Hct 22.8 L MCV MCH 27 L MCHC RDW 20.5 H Plt Count Seg Neuts % (Manual) Lymphocytes % (Manual) Seg Neutrophils # Man Lymphocytes # (Manual) Monocytes # (Manual) PT INR D-Dimer ABG pH ABG pO2 ABG HCO3 ABG O2 Saturation ABG Base Excess ABG Hemoglobin Oxyhemoglobin Sodium 134 L Potassium Chloride 96.7 L Carbon Dioxide BUN 23 H Creatinine 0.5 L Glucose 131 H POC Glucose 131 H Lactic Acid Calcium 8.1 L Phosphorus Magnesium AST ALT Alkaline Phosphatase Lactate Dehydrogenase Troponin T C-Reactive Protein NT-Pro-B Natriuret Pep Total Protein Albumin LDL Cholesterol Direct Vitamin B12 Vancomycin Trough Crossmatch 12/13/21 12/13/21 12/13/21 05:23 12:11 17:18 WBC RBC Hgb Hct MCV MCH MCHC RDW Plt Count Seg Neuts % (Manual) Lymphocytes % (Manual) Seg Neutrophils # Man Lymphocytes # (Manual) Monocytes # (Manual) PT INR D-Dimer ABG pH ABG pO2 ABG HCO3 ABG O2 Saturation ABG Base Excess ABG Hemoglobin Oxyhemoglobin Sodium Potassium Chloride Carbon Dioxide BUN Creatinine Glucose POC Glucose 121 H 143 H 148 H Lactic Acid Calcium Phosphorus Magnesium AST ALT Alkaline Phosphatase Lactate Dehydrogenase Troponin T C-Reactive Protein NT-Pro-B Natriuret Pep Total Protein Albumin LDL Cholesterol Direct Vitamin B12 Vancomycin Trough Crossmatch 12/14/21 12/14/21 12/14/21 00:54 04:20 04:20 WBC RBC 2.39 L Hgb 6.5 L Hct 20.3 L MCV MCH 27 L MCHC RDW 20.3 H Plt Count Seg Neuts % (Manual) Lymphocytes % (Manual) Seg Neutrophils # Man Lymphocytes # (Manual) Monocytes # (Manual) PT INR D-Dimer ABG pH ABG pO2 ABG HCO3 ABG O2 Saturation ABG Base Excess ABG Hemoglobin Oxyhemoglobin Sodium 130 L Potassium Chloride 93.5 L Carbon Dioxide BUN 25 H Creatinine Glucose 123 H POC Glucose 123 H Lactic Acid Calcium 8.0 L Phosphorus Magnesium AST ALT Alkaline Phosphatase Lactate Dehydrogenase Troponin T C-Reactive Protein NT-Pro-B Natriuret Pep Total Protein Albumin LDL Cholesterol Direct Vitamin B12 Vancomycin Trough Crossmatch 12/14/21 12/14/21 12/14/21 05:06 08:17 10:30 WBC RBC Hgb Hct MCV MCH MCHC RDW Plt Count Seg Neuts % (Manual) Lymphocytes % (Manual) Seg Neutrophils # Man Lymphocytes # (Manual) Monocytes # (Manual) PT INR D-Dimer ABG pH ABG pO2 ABG HCO3 ABG O2 Saturation ABG Base Excess ABG Hemoglobin Oxyhemoglobin Sodium Potassium Chloride Carbon Dioxide BUN Creatinine Glucose POC Glucose 131 H 119 H Lactic Acid Calcium Phosphorus Magnesium AST ALT Alkaline Phosphatase Lactate Dehydrogenase Troponin T C-Reactive Protein NT-Pro-B Natriuret Pep Total Protein Albumin LDL Cholesterol Direct Vitamin B12 Vancomycin Trough Crossmatch See Detail 12/14/21 12/14/21 12/14/21 12:15 16:37 23:27 WBC RBC Hgb Hct MCV MCH MCHC RDW Plt Count Seg Neuts % (Manual) Lymphocytes % (Manual) Seg Neutrophils # Man Lymphocytes # (Manual) Monocytes # (Manual) PT INR D-Dimer ABG pH ABG pO2 ABG HCO3 ABG O2 Saturation ABG Base Excess ABG Hemoglobin Oxyhemoglobin Sodium Potassium Chloride Carbon Dioxide BUN Creatinine Glucose POC Glucose 147 H 141 H 130 H Lactic Acid Calcium Phosphorus Magnesium AST ALT Alkaline Phosphatase Lactate Dehydrogenase Troponin T C-Reactive Protein NT-Pro-B Natriuret Pep Total Protein Albumin LDL Cholesterol Direct Vitamin B12 Vancomycin Trough Crossmatch 12/15/21 12/15/21 12/15/21 05:00 07:00 07:00 WBC 12.3 H RBC 3.27 L Hgb 8.8 L Hct 27.5 L D MCV MCH 27 L MCHC RDW 19.0 H Plt Count Seg Neuts % (Manual) Lymphocytes % (Manual) Seg Neutrophils # Man Lymphocytes # (Manual) Monocytes # (Manual) PT INR D-Dimer ABG pH ABG pO2 ABG HCO3 ABG O2 Saturation ABG Base Excess ABG Hemoglobin Oxyhemoglobin Sodium 134 L Potassium Chloride 95.7 L Carbon Dioxide BUN 28 H Creatinine Glucose 129 H POC Glucose 129 H Lactic Acid Calcium 8.2 L Phosphorus Magnesium AST ALT Alkaline Phosphatase Lactate Dehydrogenase Troponin T C-Reactive Protein NT-Pro-B Natriuret Pep Total Protein Albumin LDL Cholesterol Direct Vitamin B12 Vancomycin Trough Crossmatch 12/15/21 12/15/21 12/15/21 11:18 16:00 23:39 WBC RBC Hgb Hct MCV MCH MCHC RDW Plt Count Seg Neuts % (Manual) Lymphocytes % (Manual) Seg Neutrophils # Man Lymphocytes # (Manual) Monocytes # (Manual) PT INR D-Dimer ABG pH ABG pO2 ABG HCO3 ABG O2 Saturation ABG Base Excess ABG Hemoglobin Oxyhemoglobin Sodium Potassium Chloride Carbon Dioxide BUN Creatinine Glucose POC Glucose 139 H 137 H 146 H Lactic Acid Calcium Phosphorus Magnesium AST ALT Alkaline Phosphatase Lactate Dehydrogenase Troponin T C-Reactive Protein NT-Pro-B Natriuret Pep Total Protein Albumin LDL Cholesterol Direct Vitamin B12 Vancomycin Trough Crossmatch 12/16/21 12/16/21 12/16/21 05:24 10:21 10:21 WBC 15.3 H RBC 3.24 L Hgb 8.9 L Hct 27.7 L MCV MCH MCHC RDW 19.0 H Plt Count Seg Neuts % (Manual) Lymphocytes % (Manual) Seg Neutrophils # Man Lymphocytes # (Manual) Monocytes # (Manual) PT INR D-Dimer ABG pH ABG pO2 ABG HCO3 ABG O2 Saturation ABG Base Excess ABG Hemoglobin Oxyhemoglobin Sodium 131 L Potassium 3.5 L Chloride 92.7 L Carbon Dioxide BUN 36 H Creatinine Glucose 160 H POC Glucose 121 H Lactic Acid Calcium Phosphorus Magnesium 1.60 L AST ALT Alkaline Phosphatase Lactate Dehydrogenase Troponin T C-Reactive Protein NT-Pro-B Natriuret Pep Total Protein Albumin LDL Cholesterol Direct Vitamin B12 Vancomycin Trough Crossmatch 12/16/21 12/16/21 12/16/21 11:21 18:28 20:52 WBC RBC Hgb Hct MCV MCH MCHC RDW Plt Count Seg Neuts % (Manual) Lymphocytes % (Manual) Seg Neutrophils # Man Lymphocytes # (Manual) Monocytes # (Manual) PT INR D-Dimer ABG pH 7.479 H ABG pO2 79.3 L ABG HCO3 27.3 H ABG O2 Saturation ABG Base Excess 3.6 H ABG Hemoglobin 9.1 L Oxyhemoglobin 94.9 L Sodium Potassium Chloride Carbon Dioxide BUN Creatinine Glucose POC Glucose 153 H 132 H Lactic Acid Calcium Phosphorus Magnesium AST ALT Alkaline Phosphatase Lactate Dehydrogenase Troponin T C-Reactive Protein NT-Pro-B Natriuret Pep Total Protein Albumin LDL Cholesterol Direct Vitamin B12 Vancomycin Trough Crossmatch 12/16/21 12/17/21 12/17/21 23:30 04:25 04:25 WBC 12.3 H RBC 2.16 L Hgb 6.0 L Hct 18.1 L* D MCV MCH MCHC RDW 19.4 H Plt Count Seg Neuts % (Manual) Lymphocytes % (Manual) Seg Neutrophils # Man Lymphocytes # (Manual) Monocytes # (Manual) PT INR D-Dimer ABG pH ABG pO2 ABG HCO3 ABG O2 Saturation ABG Base Excess ABG Hemoglobin Oxyhemoglobin Sodium 132 L Potassium 3.2 L Chloride 112.0 H Carbon Dioxide BUN 32 H Creatinine Glucose 122 H POC Glucose 137 H Lactic Acid Calcium 6.8 L D Phosphorus Magnesium AST ALT Alkaline Phosphatase Lactate Dehydrogenase Troponin T C-Reactive Protein NT-Pro-B Natriuret Pep Total Protein Albumin LDL Cholesterol Direct Vitamin B12 Vancomycin Trough Crossmatch 12/17/21 12/17/21 12/17/21 05:30 11:49 14:45 WBC RBC Hgb 9.7 L D Hct MCV MCH MCHC RDW Plt Count Seg Neuts % (Manual) Lymphocytes % (Manual) Seg Neutrophils # Man Lymphocytes # (Manual) Monocytes # (Manual) PT INR D-Dimer ABG pH ABG pO2 ABG HCO3 ABG O2 Saturation ABG Base Excess ABG Hemoglobin Oxyhemoglobin Sodium Potassium Chloride Carbon Dioxide BUN Creatinine Glucose POC Glucose 137 H 143 H Lactic Acid Calcium Phosphorus Magnesium AST ALT Alkaline Phosphatase Lactate Dehydrogenase Troponin T C-Reactive Protein NT-Pro-B Natriuret Pep Total Protein Albumin LDL Cholesterol Direct Vitamin B12 Vancomycin Trough Crossmatch 12/17/21 12/18/21 12/18/21 17:01 05:04 05:04 WBC 13.8 H RBC 3.44 L Hgb 9.9 L Hct 28.8 L MCV MCH MCHC RDW 18.1 H Plt Count Seg Neuts % (Manual) Lymphocytes % (Manual) Seg Neutrophils # Man Lymphocytes # (Manual) Monocytes # (Manual) PT INR D-Dimer ABG pH ABG pO2 ABG HCO3 ABG O2 Saturation ABG Base Excess ABG Hemoglobin Oxyhemoglobin Sodium 132 L Potassium Chloride 97.4 L Carbon Dioxide BUN 38 H Creatinine Glucose 134 H POC Glucose 132 H Lactic Acid Calcium Phosphorus Magnesium AST ALT Alkaline Phosphatase Lactate Dehydrogenase Troponin T C-Reactive Protein NT-Pro-B Natriuret Pep Total Protein Albumin LDL Cholesterol Direct Vitamin B12 Vancomycin Trough Crossmatch 12/18/21 12/18/21 12/18/21 05:28 10:57 16:27 WBC RBC Hgb Hct MCV MCH MCHC RDW Plt Count Seg Neuts % (Manual) Lymphocytes % (Manual) Seg Neutrophils # Man Lymphocytes # (Manual) Monocytes # (Manual) PT INR D-Dimer ABG pH ABG pO2 ABG HCO3 ABG O2 Saturation ABG Base Excess ABG Hemoglobin Oxyhemoglobin Sodium Potassium Chloride Carbon Dioxide BUN Creatinine Glucose POC Glucose 118 H 132 H 130 H Lactic Acid Calcium Phosphorus Magnesium AST ALT Alkaline Phosphatase Lactate Dehydrogenase Troponin T C-Reactive Protein NT-Pro-B Natriuret Pep Total Protein Albumin LDL Cholesterol Direct Vitamin B12 Vancomycin Trough Crossmatch 12/19/21 12/19/21 12/19/21 00:02 04:41 04:41 WBC 16.0 H RBC 3.45 L Hgb 9.7 L Hct 29.1 L MCV MCH MCHC RDW 17.8 H Plt Count Seg Neuts % (Manual) Lymphocytes % (Manual) Seg Neutrophils # Man Lymphocytes # (Manual) Monocytes # (Manual) PT INR D-Dimer ABG pH ABG pO2 ABG HCO3 ABG O2 Saturation ABG Base Excess ABG Hemoglobin Oxyhemoglobin Sodium 133 L Potassium Chloride 97.9 L Carbon Dioxide BUN 36 H Creatinine 0.5 L Glucose 126 H POC Glucose 127 H Lactic Acid Calcium 8.3 L Phosphorus Magnesium AST ALT Alkaline Phosphatase Lactate Dehydrogenase Troponin T C-Reactive Protein NT-Pro-B Natriuret Pep Total Protein Albumin LDL Cholesterol Direct Vitamin B12 Vancomycin Trough Crossmatch 12/19/21 12/19/21 12/19/21 05:26 12:20 16:43 WBC RBC Hgb Hct MCV MCH MCHC RDW Plt Count Seg Neuts % (Manual) Lymphocytes % (Manual) Seg Neutrophils # Man Lymphocytes # (Manual) Monocytes # (Manual) PT INR D-Dimer ABG pH ABG pO2 ABG HCO3 ABG O2 Saturation ABG Base Excess ABG Hemoglobin Oxyhemoglobin Sodium Potassium Chloride Carbon Dioxide BUN Creatinine Glucose POC Glucose 119 H 145 H 126 H Lactic Acid Calcium Phosphorus Magnesium AST ALT Alkaline Phosphatase Lactate Dehydrogenase Troponin T C-Reactive Protein NT-Pro-B Natriuret Pep Total Protein Albumin LDL Cholesterol Direct Vitamin B12 Vancomycin Trough Crossmatch 12/19/21 12/20/21 12/20/21 23:30 04:54 04:54 WBC 12.3 H RBC 3.54 L Hgb 10.0 L Hct 29.5 L MCV MCH MCHC RDW 17.8 H Plt Count Seg Neuts % (Manual) 88.0 H Lymphocytes % (Manual) 6.0 L Seg Neutrophils # Man 10.8 H Lymphocytes # (Manual) 0.7 L Monocytes # (Manual) PT INR D-Dimer ABG pH ABG pO2 ABG HCO3 ABG O2 Saturation ABG Base Excess ABG Hemoglobin Oxyhemoglobin Sodium 131 L Potassium Chloride 96.2 L Carbon Dioxide BUN 36 H Creatinine 0.5 L Glucose 130 H POC Glucose 117 H Lactic Acid Calcium Phosphorus Magnesium AST ALT Alkaline Phosphatase Lactate Dehydrogenase Troponin T C-Reactive Protein NT-Pro-B Natriuret Pep Total Protein Albumin LDL Cholesterol Direct Vitamin B12 Vancomycin Trough Crossmatch 12/20/21 12/20/21 12/20/21 05:20 11:51 17:30 WBC RBC Hgb Hct MCV MCH MCHC RDW Plt Count Seg Neuts % (Manual) Lymphocytes % (Manual) Seg Neutrophils # Man Lymphocytes # (Manual) Monocytes # (Manual) PT INR D-Dimer ABG pH ABG pO2 ABG HCO3 ABG O2 Saturation ABG Base Excess ABG Hemoglobin Oxyhemoglobin Sodium Potassium Chloride Carbon Dioxide BUN Creatinine Glucose POC Glucose 126 H 119 H 127 H Lactic Acid Calcium Phosphorus Magnesium AST ALT Alkaline Phosphatase Lactate Dehydrogenase Troponin T C-Reactive Protein NT-Pro-B Natriuret Pep Total Protein Albumin LDL Cholesterol Direct Vitamin B12 Vancomycin Trough Crossmatch 12/21/21 12/21/21 12/21/21 00:45 04:21 04:21 WBC RBC 3.47 L Hgb 9.4 L Hct 29.2 L MCV MCH 27 L MCHC RDW 18.1 H Plt Count Seg Neuts % (Manual) Lymphocytes % (Manual) Seg Neutrophils # Man Lymphocytes # (Manual) Monocytes # (Manual) PT INR D-Dimer ABG pH ABG pO2 ABG HCO3 ABG O2 Saturation ABG Base Excess ABG Hemoglobin Oxyhemoglobin Sodium 134 L Potassium Chloride Carbon Dioxide BUN 35 H Creatinine 0.5 L Glucose 122 H POC Glucose 125 H Lactic Acid Calcium 8.2 L Phosphorus Magnesium AST ALT Alkaline Phosphatase Lactate Dehydrogenase Troponin T C-Reactive Protein NT-Pro-B Natriuret Pep Total Protein Albumin LDL Cholesterol Direct Vitamin B12 Vancomycin Trough Crossmatch 12/21/21 12/21/21 12/21/21 05:38 11:29 16:16 WBC RBC Hgb Hct MCV MCH MCHC RDW Plt Count Seg Neuts % (Manual) Lymphocytes % (Manual) Seg Neutrophils # Man Lymphocytes # (Manual) Monocytes # (Manual) PT INR D-Dimer ABG pH ABG pO2 ABG HCO3 ABG O2 Saturation ABG Base Excess ABG Hemoglobin Oxyhemoglobin Sodium Potassium Chloride Carbon Dioxide BUN Creatinine Glucose POC Glucose 127 H 121 H 113 H Lactic Acid Calcium Phosphorus Magnesium AST ALT Alkaline Phosphatase Lactate Dehydrogenase Troponin T C-Reactive Protein NT-Pro-B Natriuret Pep Total Protein Albumin LDL Cholesterol Direct Vitamin B12 Vancomycin Trough Crossmatch 12/22/21 12/22/21 12/23/21 04:58 04:58 06:40 WBC 11.5 H RBC 3.43 L Hgb 9.8 L Hct 28.7 L MCV MCH MCHC RDW 18.5 H 17.9 H Plt Count Seg Neuts % (Manual) Lymphocytes % (Manual) Seg Neutrophils # Man Lymphocytes # (Manual) Monocytes # (Manual) PT INR D-Dimer ABG pH ABG pO2 ABG HCO3 ABG O2 Saturation ABG Base Excess ABG Hemoglobin Oxyhemoglobin Sodium 130 L Potassium Chloride 97.8 L Carbon Dioxide BUN 31 H Creatinine 0.5 L Glucose 122 H POC Glucose Lactic Acid Calcium 7.9 L Phosphorus Magnesium AST ALT Alkaline Phosphatase Lactate Dehydrogenase Troponin T C-Reactive Protein NT-Pro-B Natriuret Pep Total Protein Albumin LDL Cholesterol Direct Vitamin B12 Vancomycin Trough Crossmatch 12/23/21 12/23/21 12/24/21 06:40 23:25 04:24 WBC 11.7 H RBC Hgb 9.8 L Hct MCV MCH 26 L MCHC RDW 18.1 H Plt Count Seg Neuts % (Manual) Lymphocytes % (Manual) Seg Neutrophils # Man Lymphocytes # (Manual) Monocytes # (Manual) PT INR D-Dimer ABG pH ABG pO2 ABG HCO3 ABG O2 Saturation ABG Base Excess ABG Hemoglobin Oxyhemoglobin Sodium 136 L Potassium Chloride Carbon Dioxide BUN 27 H Creatinine 0.4 L Glucose 107 H POC Glucose 110 H Lactic Acid Calcium 8.1 L Phosphorus Magnesium AST ALT Alkaline Phosphatase Lactate Dehydrogenase Troponin T C-Reactive Protein NT-Pro-B Natriuret Pep Total Protein Albumin LDL Cholesterol Direct Vitamin B12 Vancomycin Trough Crossmatch 12/24/21 12/24/21 12/24/21 04:24 11:08 15:45 WBC RBC Hgb Hct MCV MCH MCHC RDW Plt Count Seg Neuts % (Manual) Lymphocytes % (Manual) Seg Neutrophils # Man Lymphocytes # (Manual) Monocytes # (Manual) PT INR D-Dimer ABG pH ABG pO2 ABG HCO3 ABG O2 Saturation ABG Base Excess ABG Hemoglobin Oxyhemoglobin Sodium 132 L Potassium Chloride Carbon Dioxide BUN 27 H Creatinine 0.3 L Glucose 108 H POC Glucose 116 H 107 H Lactic Acid Calcium Phosphorus Magnesium AST ALT Alkaline Phosphatase Lactate Dehydrogenase Troponin T C-Reactive Protein NT-Pro-B Natriuret Pep Total Protein Albumin LDL Cholesterol Direct Vitamin B12 Vancomycin Trough Crossmatch 12/24/21 12/25/21 12/25/21 23:43 05:29 11:48 WBC RBC Hgb Hct MCV MCH MCHC RDW Plt Count Seg Neuts % (Manual) Lymphocytes % (Manual) Seg Neutrophils # Man Lymphocytes # (Manual) Monocytes # (Manual) PT INR D-Dimer ABG pH ABG pO2 ABG HCO3 ABG O2 Saturation ABG Base Excess ABG Hemoglobin Oxyhemoglobin Sodium Potassium Chloride Carbon Dioxide BUN Creatinine Glucose POC Glucose 123 H 107 H 119 H Lactic Acid Calcium Phosphorus Magnesium AST ALT Alkaline Phosphatase Lactate Dehydrogenase Troponin T C-Reactive Protein NT-Pro-B Natriuret Pep Total Protein Albumin LDL Cholesterol Direct Vitamin B12 Vancomycin Trough Crossmatch 12/26/21 12/26/21 12/26/21 00:06 05:56 07:51 WBC 11.4 H RBC 3.40 L Hgb 9.3 L Hct 28.3 L MCV MCH 27 L MCHC RDW 18.2 H Plt Count Seg Neuts % (Manual) Lymphocytes % (Manual) Seg Neutrophils # Man Lymphocytes # (Manual) Monocytes # (Manual) PT INR D-Dimer ABG pH ABG pO2 ABG HCO3 ABG O2 Saturation ABG Base Excess ABG Hemoglobin Oxyhemoglobin Sodium Potassium Chloride Carbon Dioxide BUN Creatinine Glucose POC Glucose 133 H 107 H Lactic Acid Calcium Phosphorus Magnesium AST ALT Alkaline Phosphatase Lactate Dehydrogenase Troponin T C-Reactive Protein NT-Pro-B Natriuret Pep Total Protein Albumin LDL Cholesterol Direct Vitamin B12 Vancomycin Trough Crossmatch 12/26/21 12/26/21 12/26/21 07:51 11:43 17:06 WBC RBC Hgb Hct MCV MCH MCHC RDW Plt Count Seg Neuts % (Manual) Lymphocytes % (Manual) Seg Neutrophils # Man Lymphocytes # (Manual) Monocytes # (Manual) PT INR D-Dimer ABG pH ABG pO2 ABG HCO3 ABG O2 Saturation ABG Base Excess ABG Hemoglobin Oxyhemoglobin Sodium 136 L Potassium Chloride Carbon Dioxide BUN 25 H Creatinine 0.3 L Glucose 131 H POC Glucose 119 H 128 H Lactic Acid Calcium Phosphorus Magnesium AST ALT Alkaline Phosphatase Lactate Dehydrogenase Troponin T C-Reactive Protein NT-Pro-B Natriuret Pep Total Protein Albumin LDL Cholesterol Direct Vitamin B12 Vancomycin Trough Crossmatch 12/28/21 12/28/21 12/29/21 09:05 09:05 04:40 WBC RBC 3.19 L Hgb 8.9 L Hct 26.4 L MCV MCH 27 L MCHC RDW 18.4 H 17.9 H Plt Count Seg Neuts % (Manual) Lymphocytes % (Manual) Seg Neutrophils # Man Lymphocytes # (Manual) Monocytes # (Manual) PT INR D-Dimer ABG pH ABG pO2 ABG HCO3 ABG O2 Saturation ABG Base Excess ABG Hemoglobin Oxyhemoglobin Sodium 135 L Potassium Chloride 97.8 L Carbon Dioxide BUN 18 H Creatinine 0.3 L Glucose POC Glucose Lactic Acid Calcium Phosphorus Magnesium AST ALT Alkaline Phosphatase Lactate Dehydrogenase Troponin T C-Reactive Protein NT-Pro-B Natriuret Pep Total Protein Albumin LDL Cholesterol Direct Vitamin B12 Vancomycin Trough Crossmatch 12/29/21 12/29/21 12/30/21 04:40 12:47 04:05 WBC RBC 3.29 L Hgb 8.7 L Hct 27.6 L MCV MCH 27 L MCHC RDW 17.6 H Plt Count Seg Neuts % (Manual) Lymphocytes % (Manual) Seg Neutrophils # Man Lymphocytes # (Manual) Monocytes # (Manual) PT INR D-Dimer ABG pH ABG pO2 ABG HCO3 ABG O2 Saturation ABG Base Excess ABG Hemoglobin Oxyhemoglobin Sodium 136 L Potassium Chloride Carbon Dioxide BUN Creatinine 0.3 L Glucose POC Glucose 67 L Lactic Acid Calcium 8.3 L Phosphorus Magnesium AST ALT Alkaline Phosphatase Lactate Dehydrogenase Troponin T C-Reactive Protein NT-Pro-B Natriuret Pep Total Protein Albumin LDL Cholesterol Direct Vitamin B12 Vancomycin Trough Crossmatch 12/30/21 12/31/21 12/31/21 04:05 00:07 04:00 WBC RBC 3.05 L Hgb 8.5 L Hct 25.5 L MCV MCH MCHC RDW 18.2 H Plt Count Seg Neuts % (Manual) Lymphocytes % (Manual) Seg Neutrophils # Man Lymphocytes # (Manual) Monocytes # (Manual) PT INR D-Dimer ABG pH ABG pO2 ABG HCO3 ABG O2 Saturation ABG Base Excess ABG Hemoglobin Oxyhemoglobin Sodium 136 L Potassium 3.5 L Chloride Carbon Dioxide BUN Creatinine 0.4 L Glucose POC Glucose 139 H Lactic Acid Calcium Phosphorus Magnesium 1.50 L AST ALT Alkaline Phosphatase Lactate Dehydrogenase Troponin T C-Reactive Protein NT-Pro-B Natriuret Pep Total Protein Albumin LDL Cholesterol Direct Vitamin B12 Vancomycin Trough Crossmatch 12/31/21 12/31/21 12/31/21 04:00 04:52 11:23 WBC RBC Hgb Hct MCV MCH MCHC RDW Plt Count Seg Neuts % (Manual) Lymphocytes % (Manual) Seg Neutrophils # Man Lymphocytes # (Manual) Monocytes # (Manual) PT INR D-Dimer ABG pH ABG pO2 ABG HCO3 ABG O2 Saturation ABG Base Excess ABG Hemoglobin Oxyhemoglobin Sodium Potassium Chloride Carbon Dioxide BUN 19 H Creatinine 0.4 L Glucose 116 H POC Glucose 121 H 116 H Lactic Acid Calcium Phosphorus Magnesium AST ALT Alkaline Phosphatase Lactate Dehydrogenase Troponin T C-Reactive Protein NT-Pro-B Natriuret Pep Total Protein Albumin LDL Cholesterol Direct Vitamin B12 Vancomycin Trough Crossmatch 12/31/21 01/01/22 01/01/22 17:42 04:31 04:31 WBC RBC 2.83 L Hgb 7.7 L Hct 23.2 L MCV MCH 27 L MCHC RDW 18.3 H Plt Count Seg Neuts % (Manual) Lymphocytes % (Manual) Seg Neutrophils # Man Lymphocytes # (Manual) Monocytes # (Manual) PT INR D-Dimer ABG pH ABG pO2 ABG HCO3 ABG O2 Saturation ABG Base Excess ABG Hemoglobin Oxyhemoglobin Sodium 135 L Potassium Chloride 97.7 L Carbon Dioxide BUN 21 H Creatinine 0.5 L Glucose 127 H POC Glucose 107 H Lactic Acid Calcium 8.0 L Phosphorus Magnesium AST ALT Alkaline Phosphatase Lactate Dehydrogenase Troponin T C-Reactive Protein NT-Pro-B Natriuret Pep Total Protein Albumin LDL Cholesterol Direct Vitamin B12 Vancomycin Trough Crossmatch 01/01/22 01/01/22 01/01/22 05:24 11:25 18:11 WBC RBC Hgb Hct MCV MCH MCHC RDW Plt Count Seg Neuts % (Manual) Lymphocytes % (Manual) Seg Neutrophils # Man Lymphocytes # (Manual) Monocytes # (Manual) PT INR D-Dimer ABG pH ABG pO2 ABG HCO3 ABG O2 Saturation ABG Base Excess ABG Hemoglobin Oxyhemoglobin Sodium Potassium Chloride Carbon Dioxide BUN Creatinine Glucose POC Glucose 124 H 140 H 144 H Lactic Acid Calcium Phosphorus Magnesium AST ALT Alkaline Phosphatase Lactate Dehydrogenase Troponin T C-Reactive Protein NT-Pro-B Natriuret Pep Total Protein Albumin LDL Cholesterol Direct Vitamin B12 Vancomycin Trough Crossmatch 01/01/22 01/02/22 01/02/22 23:26 04:01 04:01 WBC RBC 2.57 L Hgb 7.1 L Hct 21.5 L MCV MCH MCHC RDW 18.1 H Plt Count Seg Neuts % (Manual) Lymphocytes % (Manual) Seg Neutrophils # Man Lymphocytes # (Manual) Monocytes # (Manual) PT INR D-Dimer ABG pH ABG pO2 ABG HCO3 ABG O2 Saturation ABG Base Excess ABG Hemoglobin Oxyhemoglobin Sodium 131 L Potassium 3.5 L Chloride 94.8 L Carbon Dioxide BUN 27 H Creatinine Glucose 121 H POC Glucose 121 H Lactic Acid Calcium Phosphorus Magnesium AST ALT Alkaline Phosphatase Lactate Dehydrogenase Troponin T C-Reactive Protein NT-Pro-B Natriuret Pep Total Protein Albumin LDL Cholesterol Direct Vitamin B12 Vancomycin Trough Crossmatch 01/02/22 01/02/22 01/02/22 05:30 11:10 16:08 WBC RBC Hgb Hct MCV MCH MCHC RDW Plt Count Seg Neuts % (Manual) Lymphocytes % (Manual) Seg Neutrophils # Man Lymphocytes # (Manual) Monocytes # (Manual) PT INR D-Dimer ABG pH ABG pO2 ABG HCO3 ABG O2 Saturation ABG Base Excess ABG Hemoglobin Oxyhemoglobin Sodium Potassium Chloride Carbon Dioxide BUN Creatinine Glucose POC Glucose 124 H 117 H 130 H Lactic Acid Calcium Phosphorus Magnesium AST ALT Alkaline Phosphatase Lactate Dehydrogenase Troponin T C-Reactive Protein NT-Pro-B Natriuret Pep Total Protein Albumin LDL Cholesterol Direct Vitamin B12 Vancomycin Trough Crossmatch 01/02/22 01/02/22 01/03/22 17:30 23:26 04:53 WBC RBC 2.82 L Hgb 7.7 L Hct 23.4 L MCV MCH 27 L MCHC RDW 18.0 H Plt Count Seg Neuts % (Manual) Lymphocytes % (Manual) Seg Neutrophils # Man Lymphocytes # (Manual) Monocytes # (Manual) PT INR D-Dimer ABG pH ABG pO2 ABG HCO3 ABG O2 Saturation ABG Base Excess ABG Hemoglobin Oxyhemoglobin Sodium Potassium Chloride Carbon Dioxide BUN Creatinine Glucose POC Glucose 114 H Lactic Acid Calcium Phosphorus Magnesium AST ALT Alkaline Phosphatase Lactate Dehydrogenase Troponin T C-Reactive Protein NT-Pro-B Natriuret Pep Total Protein Albumin LDL Cholesterol Direct Vitamin B12 Vancomycin Trough 22.8 H Crossmatch 01/03/22 01/03/22 01/03/22 04:53 06:23 17:35 WBC RBC Hgb Hct MCV MCH MCHC RDW Plt Count Seg Neuts % (Manual) Lymphocytes % (Manual) Seg Neutrophils # Man Lymphocytes # (Manual) Monocytes # (Manual) PT INR D-Dimer ABG pH ABG pO2 ABG HCO3 ABG O2 Saturation ABG Base Excess ABG Hemoglobin Oxyhemoglobin Sodium 133 L Potassium Chloride 96.2 L Carbon Dioxide BUN 30 H Creatinine Glucose 107 H POC Glucose 122 H 107 H Lactic Acid Calcium Phosphorus Magnesium AST ALT Alkaline Phosphatase Lactate Dehydrogenase Troponin T C-Reactive Protein NT-Pro-B Natriuret Pep Total Protein Albumin LDL Cholesterol Direct Vitamin B12 Vancomycin Trough Crossmatch 01/04/22 01/04/22 01/04/22 04:00 12:32 16:45 WBC RBC Hgb Hct MCV MCH MCHC RDW Plt Count Seg Neuts % (Manual) Lymphocytes % (Manual) Seg Neutrophils # Man Lymphocytes # (Manual) Monocytes # (Manual) PT INR D-Dimer ABG pH ABG pO2 ABG HCO3 ABG O2 Saturation ABG Base Excess ABG Hemoglobin Oxyhemoglobin Sodium 132 L Potassium Chloride 92.8 L Carbon Dioxide BUN 30 H Creatinine Glucose 115 H POC Glucose 111 H 111 H Lactic Acid Calcium Phosphorus Magnesium 1.60 L AST ALT Alkaline Phosphatase Lactate Dehydrogenase Troponin T C-Reactive Protein NT-Pro-B Natriuret Pep Total Protein Albumin LDL Cholesterol Direct Vitamin B12 Vancomycin Trough Crossmatch 01/05/22 01/05/22 04:30 04:30 WBC RBC 3.11 L Hgb 8.4 L Hct 25.5 L MCV MCH 27 L MCHC RDW 17.6 H Plt Count Seg Neuts % (Manual) Lymphocytes % (Manual) Seg Neutrophils # Man Lymphocytes # (Manual) Monocytes # (Manual) PT INR D-Dimer ABG pH ABG pO2 ABG HCO3 ABG O2 Saturation ABG Base Excess ABG Hemoglobin Oxyhemoglobin Sodium 135 L Potassium Chloride 93.6 L Carbon Dioxide BUN 29 H Creatinine Glucose POC Glucose Lactic Acid Calcium Phosphorus Magnesium AST ALT Alkaline Phosphatase Lactate Dehydrogenase Troponin T C-Reactive Protein NT-Pro-B Natriuret Pep Total Protein Albumin LDL Cholesterol Direct Vitamin B12 Vancomycin Trough Crossmatch Chest x-ray: report reviewed, image reviewed Additional Studies: CHEST 1 VIEW 01/05/2022 5:07 AM INDICATION / CLINICAL INFORMATION: Bilateral Pleural Effusion. COMPARISON: 01/01/22. FINDINGS: SUPPORT DEVICES: The positions of the tracheostomy tube, right PICC and dual chamber left subclavian transvenous pacemaker have not changed. HEART / MEDIASTINUM: Unchanged. LUNGS / PLEURA: Diffuse bilateral pleuroparenchymal opacities, right greater than left, are similar to the prior exam. No pneumothorax. ADDITIONAL FINDINGS: No significant additional findings. IMPRESSION: No significant interval change. Allied health notes reviewed: RT
--- NOTE | 2022-01-05 18:10 | Progress Note ---
<MAYCOLJASBIR Maria TeresaMarissa - Last Filed: 01/05/22 18:11> Assessment and Plan Assessment and plan: This is a 81-year-old female with known history of diabetes mellitus, hypertension, PPM, and arthritis admitted for sepsis and acute hypoxia respiratory failure 2/2 bilateral pneumonia requiring intubation and ventilatory support Assessment and Plan Neuro : Anxiety, chronic pain -Neurology consulted, appreciate recommendations -CT brain showed no acute events -EEG interpreted as abnormal record due to diffuse slowing noted throughout the recording, suggestive of encephalopathic process and/or drug effect, possibilities of postictal state cannot be totally excluded. Clinical correlatio n is in order -MRI brain not obtained-> patient has metal in her body -Repeat CT head with no acute findings -Reorientation as needed -Ammonia 42, B12 1823, TSH 1.5 -BuSpar, Seroquel, Ider, gabapentin -prn xanax and Dilaudid Cardio: Acute Heart failure with reduced EF, h/o chronic heart block s/p PPM, HTN, CAD s/p PCI (2004), Moderate pulmonary HTN, cardiomyopathy -s/p vasopressor support with levophed -11/04 echocardiogram shows EF 30 to 35%, Moderate pulmonary HTN RVSP 49 -3/4 echo with 35-40% EF -Cardiology consulted, appreciate recommendations -Continue beta-charleen and statin therapy -Midodrine (titrate as needed) -Not on aspirin due to allergy -Blood pressure monitoring per protocol -As needed nitroglycerin Resp: Acute hypoxic respiratory failure secondary to bilateral pneumonia, bilateral pleural effusion. Right pneumothorax (resolved) -COVID-19 PCR negative -Intubated on 11/06 with 6.00 ETT at 18 at the lip and changed over bougie on 11/11-7.50 ETT at 20 at the lip -See RT notes for titration -PSV as tolerated -Surgery consult for trach -Received trach/PEG on 11/26 -S/p bedside bronchoscopy on 11/11 complicated by pneumothorax -S/p chest tube placement for right pneumothorax and dislodgment by patient on 11/15 -ABG/CXR per [facility] -VAP bundle -Right chest wall ultrasound showed pleural effusion s/p chest tube -12/11 US thoracentesis removed 1L fluid -12/29 US thoracentesis removed 1.4L fluid -01/06 thoracentesis planned -SPO2 monitoring GI: S/p GI bleed, duodenal ulcer, transaminitis -GI consulted, appreciate recommendations-signed off -Nutrition consult for tube feeding -BR: Senokot -s/p peg 11/26 -H2 charleen -Carafate -24-hour +428 ml -10/2021 Gastric occult positive -> EGD-> duodenal ulcer -12/14 occult stool positive : Urinary retention (resolved), hyponatremia, hypochloremia -Strict intake and output -Trend BMP ID: Septic shock (POA-resolved), bilateral pneumonia, MRSA bacteremia/pna -Infectious disease consulted, appreciate recommendations -COVID-19 PCR negative -Presented with fevers, leukocytosis and hypotension -11/04 blood cultures positive with a group B strep bacteremia 12/19 however repeat blood cultures on the with no growth to date -Echo showed no evidence of vegetation -repeat echo showed EF 35-40 % with no vegetations -ABX therapy: IV vancomycin for 4 weeks (12/16-01/26) -Monitor WBC and fever curve -Bedside bronchoscopy for mucous plug on CXR 11/11 -f/u blood cultures Heme: Acute DVT in the right external iliac vein, common femoral vein, superior aspect of femoral vein, Acute microcytic anemia -Evidenced on bilateral upper lower extremity ultrasound -S/p 7 unit PRBC -Trend CBC -Transfuse for hemoglobin less than 7 -heparin gtt dc d/t anemia -S/p IVC filter Endo: h/o DM and hypothyroidism -Continue home Synthroid -SSI -Accu-Cheks every 6 -Avoid hypoglycemia Disposition: Denied LTAC placement by insurance, appeal denied. Awaiting subacute rehab placement The high probability of a clinically significant, sudden or life threatening deterioration of the [pulm,mental health, CV] system(s) required my full and direct attention, intervention and personal management. The aggregate critical care time was [60] minutes. This time is in addition to time spent performing reported procedures but includes the following: [x] Data Review and interpretation [x] Patient assessment and monitoring of vital signs [x] Documentation [x] Medication orders and management Disposition Plan: imcu Total Time Spent with Patient (Minutes): 60 History Interval history: This is an 82-year-old female with DM, HTN , CHB s/p PPM, CAD s/p PCI and arthritis who presented to the emergency department on 11/04 for shortness of breath ongoing for the past 3 days, cough and according to family a fever of 102.2. Upon arrival of EMS patient was found to be tachypneic and hypoxic with SPO2 of 76% on room air which later improved to 88% on nonrebreather. Work-up in the emergency department included a CXR which showed bilateral interstitial pulmonary edema with bilateral pleural effusions and bibasilar opacities, leukocytosis and anemia with a hemoglobin of 6.1. Patient was admitted to the hospitalist service with acute anemia, acute hypoxic respiratory failure, bilateral pneumonia and COVID-19 PUI with consults to pulmonology, infectious disease and later cardiology. Patient was eventually intubated in the emergency department on 11/06. Hospital Course to date: 11/04/2021: Empiric therapy with iv levaquin/vancomycin. COVID PCR pending. Will consult ID. PCCM consulted, will follow recs. Hypotensive this AM, ordered bolus and fluids at 150 cc/hr. May require pressor support if bp does not improve. 11/05/2021: GBS on bcx +, currently on rocephin IV. Currently on bipap due to r espiratory distress overnight. Worsening BL opacities on CXR. May be volume overload vs pneumonia. Unfortunately bp too low for lasix at this point. WIll continue levophed and bipap. Once able to tolerate, may do trial of albumin/lasix. Call attempt made to Niraj, no response. Will try again tomorrow to update. 11/06/2021: Decompensated overnight requiring intubation. CXR shows worsening interstitial infiltrates. Currenlty on dopamine, levophed, vasopressin. PICC line ordered. Advised RN to place gamble for I/O monitoring. Would benefit from diuresis but very volume overloaded. Prognosis guarded 11/08: Off sedation this am, remains unresponsive only grimace to pain. Hold all sedatives agents for now, patient is off pressors this am. Hypernatremia from today's lab- D5W X1bag, and low K repleted, repeat lab in the am. Severe constipation also noted from KUB, BR added. 11/09: Sudden SPO2 drop in the 60s this am. Patient was manually bagged and deep suctioned. Patient is currently stable on the vent, repeat CXR with no significant change. D/w CCM Mucomyst and brochodilator added. Patient mentation is unchanged, continue to hold off on sedative agents. Neurology consulted. 11/10: Acute DVT noted on bilateral lower extremity Doppler ultrasound therefore she was started on Lovenox treatment dose. Failed SBT. Hypernatremia and hyperchloremia noted, free water flush adjusted. 11/11: Patient noted to be febrile with increasing of the cytosis, UA/BC sent and CXR ordered. ID escalated antibiotics to cefepime. CXR demonstrated mucous plug, bedside bronchoscopy was performed and O ETT was changed over bougie from 6 cm to 7.5. Patient was noted to have a pneumothorax postprocedure and chest tube was placed. Family updated by [facility]. Free water flush increased and will ad d Jaswant supplementation. 11/12: Patient not noted to follow commands, hypernatremia worsen/persist, increasing free water flush, potassium and magnesium and phosphorus repleted. Hemoglobin noted to be 7.1/24.5 from 7.03/12 yesterday. We will continue to trend and monitor. Vent changes per [facility]. Repeat CXR showed no residual pneumothorax. Consider waterseal tomorrow. Given persistent leukocytosis antibiotics escalated to cefepime per ID. 11/13: Remains on cefepime and vancomycin, vent changes per [facility]. Anemia noted and given 1 unit PRBC. And beta-charleen held in setting of Levophed drip in fusing. Remains on fentanyl drip. 11/14: Patient put on CPAP trial by [facility], will continue chest tube until after extubation. Will rest on assist control. CT brain was cancelled by radiology ct technologist and reordered. 11/15: Patient removed chest tube overnight. Will obtain cxr. remains on low dose levo. CTH completed with no acute findings. RT to place on CPAP. 11/16: Hypernatremia/hyperchloremia noted on the increase of day water flushes. Anemia noted and ordered PRBC. asked RT to place on cpap but not done yet 11/17: Patient remains on the vent, awake and following commands. H&H stable s/p 2units PRBCs. GI on consult, no intervention at this time. Will continue protonix gtt and serial H&H Q6hrs. Keep patient NPO for now, D5w added for hypernatremia and NPO status. Plan for IVC filter placement today by Vascular. 11/18: Patient is s/p IVC filter. H&H continue to trend down, hbg 6.1 this am, 1 unit of PRBCs ordered. Plan for possible EGD today by GI. Keep patient NPO, continue PPI drip and serial H&H Q6hrs. Electrolytes repleted, repeat lab in the am 11/19: S/p EGD- larger duodenal ulcer noted, see operative note. GI recommendations noted also noted. H&H stable this am. Keep patient on protonix gtt for now. Will keep patient NPO, continue IVF and serial H&H for now. Electrolytes repleted, repeat labs in the am 11/20: Very agitated and restless this am, fentanyl gtt resumed. Patient remains on protonix gtt, H&H remains stable. Will switch protonix gtt to IV BID, continue carafate and okay to resume meds at this time. Will F/u with GI to see if TF can be resumed. Gamble was reinserted overnight for retention. Electrolytes repleted, repeat in the am. Plan for possible PST today for possible extubation per CCM. 11/21: Patient is now on seroquel and patient's home buspar resumed. Patient more calm this morning, fentanyl gtt is off. H&H remains stable and patient is tolerating TF. Patient had a runs of Vtach/PVCs this am, BB added per Cardio. Continue daily PS and wean trial for possible extubation. 11/22: Back on fentanyl gtt overnight , RASS o to -1, following commands. Patient failed PST this am due to increased work of breathing and low SPO2, ABG pending. Patient is also with worsen pitting edema, lasix is still on hold. Will discuss with cardio and CCM to possibly resume lasix. 11/23: MARIA DEL CARMEN overnight. Patient failed PST again this am. Per CCM plan for possible trach and PEG, hold off on IV lasix for now. General surgery consulted and family is aware of possible Trach and PEG. 11/24: Trach/PEG pending this week, continue SBT/SAT as tolerated. No acute events reported overnight. 11/25: Patient was n.p.o. overnight and will remain n.p.o. tonight for trach/PEG tomorrow morning. She failed to support trial again. KUB obtained due to distended belly. 11/26: Patient scheduled for tracheostomy and PEG tube placement today, has been n.p.o. since midnight. No acute events reported overnight. [facility] ordered simethicone scheduled. 11/27: No acute events reported overnight, patient received trach/PEG yesterday. Has been on feedings since last night. Still awaiting LTAC placement. 11/28: Patient magnesium repleted, repeat a.m. labs, SBT 11/29: Patient complains of chest pain but ECG obtained which showed no acute findings, ordered troponin. Patient failed CPAP yesterday and was trialed again today. levophed was restarted but will aggressively wean 11/30: Patient failed SBT. Continue supportive care. Started gabapentin today 12/01: MARIA DEL CARMEN overnight. Continue daily PST. Case management to arrange possible placement 12/02: Report of dark stools overnight, patient is hemodynamically stable. H&H stable, patient is on PPI. Will continue to trend H&H. Continue daily PST as tolerated. Awaiting LTAC vs SNF placement. 12/03: Hypotensive overnight, requiring low dose pressors. S/p X3 days of gentle diurese. Will continue to monitor, wean off pressors as tolerated for MAP of 65. Patient Failed PST yesterday, case management to follow up with insurance for possible LTAC placement. Continue daily PST as tolerated. PT eval and treat ordered. 12/04: Increased agitation and anxiety overnight, remains on buspar and seroquel, trazadone added to promote rest. Patient is now working with PT, keep patient engage and awake during the day so she can rest at night. No BM for over 5 days, BR was adjusted. Patient did not tolerate PST again yesterday, continue daily PST as tolerated. Continue to titrate pressor for MAP above 65. Pending possible LTAC placement, case management to arrange. 12/05: Still not getting much rest overnight, will add melatonin for sleep. Continue to engage patient during the day and promote rest at night. TF was held due to concern for possible bleeding, H&H remains stable and stools normal this am. Resume TF and continue PPI and carafate. Remains on low dose levophed, titrate as tolerated. Continue daily PST. Possible LTAC placement, awaiting approval. 12/06: MARIA DEL CARMEN overnight. Patient rested overnight. Continue supportive measures. Daily PST as tolerated. Awaiting possible LTAC placement 12/07: MARIA DEL CARMEN overnight. Plan for Tpiece trial today. Continue current supportive measures. Possible LTAC placement 12/08: Patient placed on pressure support trial again today, started on Xanax, no acute events reported overnight. Awaiting insurance approval for LTAC. 12/09: Levophed discontinued, LTAC transfer denied, started on midodrine and Lasix, ultrasound chest pending, started on Xanax 0.[address] De León updated family at bedside today. Started on Dilaudid every 3 hours as needed. 12/10: Patient placed on CPAP trial this morning, no acute events reported overnight. Will order ultrasound-guided thoracentesis. 12/11: Patient had a thoracentesis today, will decrease Xanax dosage and continue midodrine and diuresing. Patient failed CPAP today. 12/12: Patient not tolerate CPAP trials today, no acute events reported overnight 12/13: No acute events overnight. continue PSV trials as tolerated. Daughter updated at bedside 12/14: Patient noted to be anemic today, ordered gastric occult. Patient seems to be oversedated therefore Xanax changed to as needed and fentanyl patch discontinued. We will continue to monitor hyponatremia. 12/15: MARIA DEL CARMEN overnight. s/p 1unit of PRBCs, H&H stable this am, no signs of any active bleeding. Continue daily PST as tolerated. Awaiting placement. 12/16: Hypertensive this am, Midodrine decreased. Continue daily PST. MARIA DEL CARMEN overnight 12/17: Patient Hgb dropped to 6 this am, no s/s of any active bleeding, VSS. Patient received 1unit of PRBC, will continue to trend H&H. Patient was panc ultured and back on IV Abx due to persistent fevers yesterday. ID is also back on the case. Continue IV Abx per ID and f/u on cultures data for sensitivity. Patient also failed PST yesterday, continue daily PST as tolerated. Electrolytes repleted, repeat labs in the am. 12/18: Patient blood cultures is growing GPC 4 out 4 bottles. PICC line D/Rivas, patient is already on IV Abx-cefepine and Vanc and ID is following. Patient remains hemodynamically stable. Daily PST as tolerated adn PRN Benzo for a nxiety. 12/19: MARIA DEL CARMEN overnight. Culture data noted, continue IV Abx per ID. Orders placed for repeat Bculture. Gamble D/C overnight, patient is voiding. Check bladder scan as needed for retention. Patient failed PST again today. Continue daily PST as tolerated. 12/20: Fevers improved, Cultures +MRSA, on Vanco per ID. Repeat 2D Echo to r/o endocarditis. Patient continue to fail PST, PEEP increased to 8 today. Continue pulmonary hygiene and vent wean per CCM. Sodium tab added for hyponatremia. 12/22: Patient on pressure support trial for approximately 4 hours today, midodrine dosage increased due to hypotension. Lasix discontinued. 12/23: Started on a.m. Seroquel dose, midodrine increased to 10 mg 3 times daily, 500 mL normal saline bolus. 12/24: Seroquel dose changed (25 every morning, 75 nightly). updated at bedside by Dr. De León. CPAP trials as tolerated. Continue vancomycin. Awaiting placement. 12/25: Continue CPAP as tolerated, added gasx for distention. Continue supportive care 12/26: Patient failed PSV this AM. no acute events overnight. 12/27: GI re-consulted due to abdominal distention. No acute events reported overnight. CPAP trials as tolerated. Dr. Mckenna will get a KUB to rule out possible obstruction. 12/28: KUB shows no acute process, CXR shows improvement. CPAP trials as tolerated. 12/29: CT Abd/pelvis noted with moderated bilateral pleural effusion, anasarca, and ascites. X1dose of IV lasix administered. D/w CCM and GI orders plan for thora and paracentesis by IR. Will also start patient on aldactone Qday. Patient is tolerating trickle feeds this am, continue TF and BR adjusted for constipation. Plan of care was discussed with patient and her at the bedside. Thorough discussion on patient's overall poor prognosis and that patient will most likely be vent dependent. Patient's voiced understanding of the info given. All questions and concerns were voiced at this time. 12/30: Patient did not tolerate thoracentesis in IR yesterday due to change in LOC and hypoxia. Plan for possible bedside thoracentesis and paracentesis today. Patient remains afebrile. Patient required moth exterminator IV abx therapy [id number] left, orders placed for a PICC. Patient remains with sign. Piting edema and anasarca, X1 does of PO Zaroxolyn and 2m of IV lasix given. Electrolytes repleted, repeat lab in the am. 12/31: Tolerated Rt. thoracentesis at the bedside yesterday, 1.4L removed. Patient remains stable on the vent this am, tolerating CPAP today PS dropped to 14. Recent CXR noted, left pleural effusion improved. Patient tolerated gentle diurese yesterday, good urine output reported. D/w CCM hold off on Left thoracentesis today, continue PO Aldactone and additonal zaroxolyn and IV lasix again today. F/u CXR in the am. 01/01: This am CXR noted with worsening bilateral pleural effusion. Patient is stable and tolerating PST this am, however PS is back up to 20 this am. BP is soft this am will hold off on IV diuretic for today, continue PO Aldactone. D/w CCM continue gentle diurese as tolerated. Will reassess in the am. Continue support care. 01/02: MARIA DEL CARMEN overnight. VSS this am, tolerating PST. X1dose of 25% IV Albumin following with 20mg IV Lasix today. Continue daily gentle diurese if hemodynamics tolerate it. Continue to monitor and replace electrolytes as needed 01/03: Abdominal distention and vomiting overnight, 600cc of gastric residual removed, TF held. KUB with no acute abnormality. Reglan added X2days, resume TF, and continue BR. Patient is tolerating PST this am. Hemodynamics remains stable, will continue gentle IV diurese. close monitoring to renal function and electrolytes. 01/04: Tolerating TF, nausea/vomiting resolved, last BM on 01/03. Continue Reglan X1 more day. Patient continue to tolerate PST. D/W CCM continue gentle diurese. F/U CXR in the am. Possible US thoracentesis tomorrow. 01/05: no acute events overnight. scheduled for thoracentesis today but procedure pushed to tomorrow. TF restarted and will be NPO post MN. Hospitalist Physical - Constitutional Vitals: Temp Pulse Resp BP Pulse Ox 98.2 F 60 13 133/67 99 01/05/22 16:13 01/05/22 17:01 01/05/22 17:01 01/05/22 17:01 01/05/22 17:01 General appearance: Present: no acute distress, other (Trach and on the vent) - EENT Eyes: Present: PERRL, EOM intact ENT: hearing intact, clear oral mucosa, dentition normal - Neck Neck: Present: normal ROM - Respiratory Respiratory effort: normal Respiratory: bilateral: CTA, diminished - Cardiovascular Rhythm: regular Heart Sounds: Present: S1 & S2. Absent: systolic murmur, diastolic murmur - Extremities Extremities: no ischemia, pulses intact, pulses symmetrical, No edema, normal temperature, normal color, Full ROM Peripheral Pulses: within normal limits - Abdominal General gastrointestinal: soft, non-tender, non-distended, normal bowel sounds - Integumentary Integumentary: Present: warm, dry - Psychiatric Psychiatric: cooperative - Neurologic Neurologic: CNII-XII intact, no focal deficits, moves all extremities - Allied Health Allied health notes reviewed: nursing, PT, RT, social work HEART Score - HEART Score Troponin: Troponin T 0.045 ng/mL (0.00-0.029) H 11/29/21 20:15 Results - Labs CBC & Chem 7: 01/05/22 04:30 01/05/22 04:30 Labs: Laboratory Last Values WBC 10.0 K/mm3 (4.5-11.0) 01/05/22 04:30 RBC 3.11 M/mm3 (3.65-5.03) L 01/05/22 04:30 Hgb 8.4 gm/dl (10.1-14.3) L 01/05/22 04:30 Hct 25.5 % (30.3-42.9) L 01/05/22 04:30 MCV 82 fl (79-97) 01/05/22 04:30 MCH 27 pg (28-32) L 01/05/22 04:30 MCHC 33 % (30-34) 01/05/22 04:30 RDW 17.6 % (13.2-15.2) H 01/05/22 04:30 Plt Count 242 K/mm3 (140-440) 01/05/22 04:30 Add Manual Diff Complete 12/20/21 04:54 Total Counted 100 12/20/21 04:54 Seg Neutrophils % Automatic Brine Mixer Operator 11/06/21 15:50 Seg Neuts % (Manual) 88.0 % (40.0-70.0) H 12/20/21 04:54 Band Neutrophils % 0 % 12/20/21 04:54 Lymphocytes % (Manual) 6.0 % (13.4-35.0) L 12/20/21 04:54 Reactive Lymphs % (Man) 0 % 12/20/21 04:54 Monocytes % (Manual) 5.0 % (0.0-7.3) 12/20/21 04:54 Eosinophils % (Manual) 1.0 % (0.0-4.3) 12/20/21 04:54 Basophils % (Manual) 0 % (0.0-1.8) 12/20/21 04:54 Metamyelocytes % 0 % 12/20/21 04:54 Myelocytes % 0 % 12/20/21 04:54 Promyelocytes % 0 % 12/20/21 04:54 Blast Cells % 0 % 12/20/21 04:54 Nucleated RBC % Not Reportable 12/20/21 04:54 Seg Neutrophils # Man 10.8 K/mm3 (1.8-7.7) H 12/20/21 04:54 Band Neutrophils # 0.0 K/mm3 12/20/21 04:54 Lymphocytes # (Manual) 0.7 K/mm3 (1.2-5.4) L 12/20/21 04:54 Abs React Lymphs (Man) 0.0 K/mm3 12/20/21 04:54 Monocytes # (Manual) 0.6 K/mm3 (0.0-0.8) 12/20/21 04:54 Eosinophils # (Manual) 0.1 K/mm3 (0.0-0.4) 12/20/21 04:54 Basophils # (Manual) 0.0 K/mm3 (0.0-0.1) 12/20/21 04:54 Metamyelocytes # 0.0 K/mm3 12/20/21 04:54 Myelocytes # 0.0 K/mm3 12/20/21 04:54 Promyelocytes # 0.0 K/mm3 12/20/21 04:54 Blast Cells # 0.0 K/mm3 12/20/21 04:54 WBC Morphology Not Reportable 12/20/21 04:54 Hypersegmented Neuts Not Reportable 12/20/21 04:54 Hyposegmented Neuts Not Reportable 12/20/21 04:54 Hypogranular Neuts Not Reportable 12/20/21 04:54 Smudge Cells Not Reportable 12/20/21 04:54 Toxic Granulation Not Reportable 12/20/21 04:54 Toxic Vacuolation Not Reportable 12/20/21 04:54 Dohle Bodies Not Reportable 12/20/21 04:54 Pelger-Huet Anomaly Not Reportable 12/20/21 04:54 Irina Rods Not Reportable 12/20/21 04:54 Platelet Estimate Consistent w auto 12/20/21 04:54 Clumped Platelets Not Reportable 12/20/21 04:54 Plt Clumps, EDTA Not Reportable 12/20/21 04:54 Large Platelets Not Reportable 12/20/21 04:54 Giant Platelets Not Reportable 12/20/21 04:54 Platelet Satelliting Not Reportable 12/20/21 04:54 Plt Morphology Comment Not Reportable 12/20/21 04:54 RBC Morphology Not Reportable 12/20/21 04:54 Dimorphic RBCs Not Reportable 12/20/21 04:54 Polychromasia Not Reportable 12/20/21 04:54 Hypochromasia Not Reportable 12/20/21 04:54 Poikilocytosis Not Reportable 12/20/21 04:54 Anisocytosis 1+ 12/20/21 04:54 Microcytosis Not Reportable 12/20/21 04:54 Macrocytosis Not Reportable 12/20/21 04:54 Spherocytes Not Reportable 12/20/21 04:54 Pappenheimer Bodies Not Reportable 12/20/21 04:54 Sickle Cells Not Reportable 12/20/21 04:54 Target Cells Not Reportable 12/20/21 04:54 Tear Drop Cells Not Reportable 12/20/21 04:54 Ovalocytes Not Reportable 12/20/21 04:54 Helmet Cells Not Reportable 12/20/21 04:54 [place] Bodies Not Reportable 12/20/21 04:54 [place] Rings Not Reportable 12/20/21 04:54 [place] Cells Not Reportable 12/20/21 04:54 Bite Cells Not Reportable 12/20/21 04:54 Crenated Cell Not Reportable 12/20/21 04:54 Elliptocytes Not Reportable 12/20/21 04:54 Acanthocytes (Spur) Not Reportable 12/20/21 04:54 Rouleaux Not Reportable 12/20/21 04:54 Hemoglobin C Crystals Not Reportable 12/20/21 04:54 Schistocytes Not Reportable 12/20/21 04:54 Malaria parasites Not Reportable 12/20/21 04:54 Godfrey Bodies Not Reportable 12/20/21 04:54 Hem Pathologist Commnt No 12/20/21 04:54 PT 16.9 Sec. (12.2-14.9) H 11/26/21 05:00 INR 1.24 (0.87-1.13) H 11/26/21 05:00 APTT 29.2 Sec. (24.2-36.6) 11/26/21 05:00 D-Dimer 2655.00 ng/mlDDU (0-234) H 11/11/21 04:28 ABG pH 7.479 pH Units (7.350-7.450) H 12/16/21 20:52 ABG pCO2 37.5 mm Hg 12/16/21 20:52 ABG pO2 79.3 mm Hg (80.0-90.0) L 12/16/21 20:52 ABG HCO3 27.3 mmol/L (20.0-26.0) H 12/16/21 20:52 ABG O2 Saturation 97.0 % (95.0-99.0) 12/16/21 20:52 ABG O2 Content 12.3 (0.0-44) 12/16/21 20:52 ABG Base Excess 3.6 mmol/L (-2.0-3.0) H 12/16/21 20:52 ABG Hemoglobin 9.1 gm/dl (12.0-16.0) L 12/16/21 20:52 ABG Carboxyhemoglobin 1.6 % (0.0-5.0) 12/16/21 20:52 ABG Methemoglobin 0.5 % (0.0-1.5) 12/16/21 20:52 Oxyhemoglobin 94.9 % (95.0-99.0) L 12/16/21 20:52 FiO2 30 % 12/16/21 20:52 Sodium 135 mmol/L (137-145) L 01/05/22 04:30 Potassium 3.8 mmol/L (3.6-5.0) 01/05/22 04:30 Chloride 93.6 mmol/L (98-107) L 01/05/22 04:30 Carbon Dioxide 29 mmol/L (22-30) 01/05/22 04:30 Anion Gap 16 mmol/L 01/05/22 04:30 BUN 29 mg/dL (7-17) H 01/05/22 04:30 Creatinine 0.6 mg/dL (0.6-1.2) 01/05/22 04:30 Estimated GFR > 60 ml/min 01/05/22 04:30 BUN/Creatinine Ratio 48 % 01/05/22 04:30 Glucose 95 mg/dL (65-100) 01/05/22 04:30 POC Glucose 93 mg/dL (70-105) 01/05/22 10:48 Lactic Acid 3.70 mmol/L (0.7-2.0) H* 11/03/21 22:32 Calcium 9.2 mg/dL (8.4-10.2) 01/05/22 04:30 Phosphorus 3.80 mg/dL (2.5-4.5) 01/05/22 04:30 Magnesium 2.00 mg/dL (1.7-2.3) 01/05/22 04:30 Ferritin 52.6 ng/mL (10.0-200.0) 11/05/21 06:11 Total Bilirubin 0.50 mg/dL (0.1-1.2) 11/17/21 05:56 Direct Bilirubin < 0.2 mg/dL (0-0.2) 11/11/21 04:28 Indirect Bilirubin 0.1 mg/dL 11/11/21 04:28 AST 36 units/L (5-40) 11/17/21 05:56 ALT 47 units/L (7-56) 11/17/21 05:56 Alkaline Phosphatase 107 units/L (35-129) 11/17/21 05:56 Ammonia 42.0 umol/L (25-60) 11/10/21 14:08 Lactate Dehydrogenase 187 units/L (91-180) H 11/05/21 06:11 Troponin T 0.045 ng/mL (0.00-0.029) H 11/29/21 20:15 C-Reactive Protein 22.20 mg/dL (0.00-1.30) H 11/05/21 06:11 NT-Pro-B Natriuret Pep 7895 pg/mL (0-900) H 11/03/21 22:32 Total Protein 5.1 g/dL (6.3-8.2) L 11/17/21 05:56 Albumin 2.2 g/dL (3.9-5) L 11/17/21 05:56 Albumin/Globulin Ratio 0.8 % 11/17/21 05:56 Triglycerides 59 mg/dL (2-149) 11/29/21 20:15 Cholesterol 74 mg/dL (50-199) 11/29/21 20:15 LDL Cholesterol Direct 25 mg/dL (50-130) L 11/29/21 20:15 HDL Cholesterol 41 mg/dL (40-59) 11/29/21 20:15 Cholesterol/HDL Ratio 1.80 % 11/29/21 20:15 Vitamin B12 1823 pg/mL (211-911) H 11/10/21 14:08 TSH 1.510 mlU/mL (0.270-4.200) 11/10/21 14:08 Urine Color Yellow (Yellow) 11/11/21 09:00 Urine Turbidity Slightly-cloudy (Clear) 11/11/21 09:00 Urine pH 5.0 (5.0-7.0) 11/11/21 09:00 Ur Specific [place] 1.009 (1.003-1.030) 11/11/21 09:00 Urine Protein <15 mg/dl mg/dL (Negative) 11/11/21 09:00 Urine Glucose (UA) Neg mg/dL (Negative) 11/11/21 09:00 Urine Ketones Neg mg/dL (Negative) 11/11/21 09:00 Urine Blood Mod (Negative) 11/11/21 09:00 Urine Nitrite Neg (Negative) 11/11/21 09:00 Urine Bilirubin Neg (Negative) 11/11/21 09:00 Urine Urobilinogen < 2.0 mg/dL (<2.0) 11/11/21 09:00 Ur Leukocyte Esterase Neg (Negative) 11/11/21 09:00 Urine WBC (Auto) < 1.0 /HPF (0.0-6.0) 11/11/21 09:00 Urine RBC (Auto) < 1.0 /HPF (0.0-6.0) 11/11/21 09:00 Vancomycin Trough 22.8 ug/mL (5.0-20.0) H 01/02/22 17:30 Random Vancomycin 10.5 ug/mL (0-40.0) 01/04/22 05:00 Coronavirus (PCR) Negative (Negative) 11/10/21 08:30 Blood Type O POSITIVE 12/14/21 10:30 Antibody Screen Negative 12/14/21 10:30 Crossmatch See Detail 12/14/21 10:30 Gamble/IV: Voiding Method External Female Catheter Active Medications - Current Medications Current Medications: Generic Name Dose Route Start Last Admin Trade Name Freq PRN Reason Stop Dose Admin Acetaminophen 650 mg 12/14/21 04:12 01/01/22 11:45 Acetaminophen 325 Mg/10.15 Ml Oral Liqd Unit Dose FEEDTUBE 650 mg Q6H PRN Administration Non Cardiac Pain or Temp>100.5 Hydrocodone Bitart/Acetaminophen 1 each 11/21/21 10:00 01/05/22 13:00 Hydrocodone/Acetaminophen 10-325mg Tab FEEDTUBE 1 each TID YOSSI Administration Alprazolam 0.25 mg 12/30/21 09:00 01/03/22 19:51 Alprazolam 0.25 Mg Tab FEEDTUBE 0.25 mg Q8H PRN Administration Agitation Lipase/Protease/Amylase 1 each 11/08/21 11:09 Lipase 10,500/Protease 25,000/Amylase 43,750 (Units) Dr Lema FEEDTUBE PRN PRN For Clogged Feeding Tube Buspirone HCl 7.5 mg 12/30/21 10:00 01/05/22 10:10 Buspirone 5 Mg Tab FEEDTUBE 7.5 mg BID YOSSI Administration Dextrose 0 ml 11/10/21 10:52 12/30/21 00:48 Dextrose 10% *Hypoglycemia IV 50 ml PRN PRN Administration Hypoglycemia Docusate Sodium 100 mg 12/30/21 10:00 01/05/22 10:12 Docusate Sodium 100 Mg/10 Ml Oral Liqd FEEDTUBE 100 mg BID YOSSI Administration Gabapentin 100 mg 12/30/21 10:00 01/05/22 10:11 Gabapentin 100 Mg Cap FEEDTUBE 100 mg QDAY YOSSI Administration Hydromorphone HCl 0.5 mg 12/08/21 20:06 01/05/22 14:20 Hydromorphone 1 Mg/1 Ml Inj IV 0.5 mg Q3H PRN Administration Pain, Moderate (4-6) Hydrophilic Ointment 1 applic 11/06/21 04:02 Lip Therapy Vaseline TP Q2HR PRN Dry Lips Vancomycin HCl 1 gm in 250 mls @ 166.667 mls/hr 01/04/22 10:00 01/04/22 09:14 Vancomycin/Ns 1 Gm/250 Ml IV 01/26/22 11:29 166.667 mls/hr Q48H YOSSI Administration Lansoprazole 30 mg 11/24/21 22:00 01/05/22 10:11 Lansoprazole 30 Mg Solutab FEEDTUBE 30 mg BID YOSSI Administration Levothyroxine Sodium 125 mcg 12/31/21 06:00 01/05/22 05:00 Levothyroxine 125 Mcg Tab FEEDTUBE 125 mcg DAILY@0600 [facility] Administration Melatonin 5 mg 12/05/21 22:00 01/05/22 01:14 Melatonin 5 Mg Tab PO Not Given QHS [facility] Metoprolol Tartrate 6.25 mg 12/30/21 10:00 01/05/22 10:11 Metoprolol Tartrate 25 Mg Tab FEEDTUBE 6.25 mg BID [facility] Administration Midodrine 5 mg 12/30/21 09:00 01/05/22 13:00 Midodrine 5 Mg Tab FEEDTUBE Not Given TID@0800,1200,1600 [facility] Multi-Ingred Cream/Lotion/Oil/Oint 1 applic 11/06/21 04:02 Mineral Oil/Petrolatum, White Ophth Oint 3.5 Gm OU Q4HR PRN Dry Eye(s) Ondansetron HCl 4 mg 12/05/21 10:00 01/03/22 19:49 Ondansetron 4 Mg/2 Ml Inj IV 4 mg Q8H PRN Administration Nausea And Vomiting Polyethylene Glycol 17 gm 12/30/21 10:00 01/05/22 10:12 Polyethylene Glycol 3350 17 Gm Powder FEEDTUBE 17 gm QDAY YOSSI Administration Pravastatin Sodium 20 mg 12/30/21 22:00 01/04/22 22:15 Pravastatin 20 Mg Tab FEEDTUBE 20 mg QHS YOSSI Administration Quetiapine Fumarate 25 mg 12/30/21 10:00 01/05/22 10:12 Quetiapine 25 Mg Tab FEEDTUBE 25 mg QAM YOSSI Administration Quetiapine Fumarate 50 mg 12/30/21 22:00 01/05/22 01:17 Quetiapine 25 Mg Tab FEEDTUBE Not Given QHS YOSSI Senna 17.6 mg 12/29/21 11:00 01/05/22 10:12 Sennosides Oral Liqd 8.8 Mg/5 Ml Oral Liqd FEEDTUBE 17.6 mg Q12HR YOSSI Administration Simple Syrup 15 ml 11/08/21 11:09 Simple Syrup 15 Ml FEEDTUBE PRN PRN Hypoglycemia Simple Syrup 30 ml 11/08/21 11:09 Simple Syrup 15 Ml FEEDTUBE PRN PRN Hypoglycemia Sodium Bicarbonate 325 mg 11/08/21 11:09 Sodium Bicarbonate 325 Mg Tab FEEDTUBE PRN PRN For Clogged Feeding Tube Sodium Chloride 10 ml 11/04/21 10:00 01/05/22 10:12 Sodium Chloride 0.9% 10 Ml Flush Syringe IV 10 ml BID YOSSI Administration Sodium Chloride 10 ml 11/04/21 02:03 Sodium Chloride 0.9% 10 Ml Flush Syringe IV PRN PRN LINE FLUSH Spironolactone 25 mg 12/30/21 10:00 01/05/22 10:11 Spironolactone 25 Mg Tab FEEDTUBE 25 mg QDAY YOSSI Administration Sucralfate 1 gm 12/30/21 12:00 01/05/22 13:00 Sucralfate 1 Gm/10 Ml Oral Liqd FEEDTUBE 1 gm Q6HR YOSSI Administration Trazodone HCl 50 mg 12/04/21 22:00 01/05/22 01:14 Trazodone 50 Mg Tab PO Not Given QHS [facility] Nutrition/Malnutrition Assess - Dietary Evaluation Nutrition/Malnutrition Findings: Nutrition Notes Start: 11/04/21 17:16 Freq: Status: Active Protocol: Document 01/02/22 12:11 NHALL (Rec: 01/02/22 12:17 [facility] [id number]) Nutrition Notes Initial or Follow up Reassessment Current Diagnosis Diabetes,Heart Failure, Respiratory Failure Other Pertinent Diagnosis Bacteremia, pneu, Bilat pleural effusion, Agitation/ anxiety Current Diet TF - Vital AF 1.2 at 45ml/hr Labs/Tests Na 131 K 3.5 BUN 27 Pertinent Medications 25% Human Albumin, Colace, Lasix, Reglan, Miralax, 40mEq KCl, Senokot, Sucralfate Height 5 ft Weight 73.3 kg [place] Body Weight (kg) 45.45 BMI 31.5 Weight change and time frame Current wt obtained from bed scale Weight Status Obese Subjective/Other Information Observed TF infusing at goal rate. Pt remains on vent support. Percent of energy/protein needs met: 100% energy 89% pro Burn Absent Trauma Absent #1 Nutrition Diagnosis Inadequate oral intake Diagnosis Progress(for reassessment Continues documentation) Is patient on ventilator? Yes Is Patient Ambulatory and/or Out of Bed No REE-([facility]-confined to bed) 1338.492 Kcal/Kg value to use for calculation 17 Approximate Energy Requirements Using 1246 kcal/Kg Calculation Used for Recommendations Kcal/kg Additional Notes Pro needs 2g/kg IBW: 91g/day Fluid needs per MD. Nutrition Intervention Nutrition Support: Continue Vital AF 1.2 at 45ml/ hr with 70ml water flush q4h. Kcal 1,296 Protein (gm) 81 Carbohydrates (gm) 119 Fat (gm) 58 Fluid (mL) 876 Fiber (gm) 6 Goal #1 TF tolerance Goal #2 TF to meet at least 75% energy and pro needs Follow-Up By: 01/09/22 Additional Comments F/U: stable TF, vent status, wt <LEAH ALFONSO - Last Filed: 01/06/22 08:10> Assessment and Plan Assessment and plan: I saw and evaluated the patient. I agree with the findings and the plan of care as documented in the Nurse Practitioner's~note, with the following corrections and additions. Spoke extensively to insurance company on P2P, they will like to know if pt needs another thoracentesis and if not we should ask for another authorization to consider LTAC. US of the lungs ordered. If no significant fluids, will work with case management to apply for authorization for LTAC as weaning is expected to be protracted. Hospitalist Physical - Constitutional Vitals: Temp Pulse Resp BP Pulse Ox 97.2 F L 60 14 135/60 100 01/06/22 04:23 01/06/22 05:40 01/06/22 05:00 01/06/22 05:40 01/06/22 05:40 HEART Score - HEART Score Troponin: Troponin T 0.045 ng/mL (0.00-0.029) H 11/29/21 20:15 Results - Labs CBC & Chem 7: 01/06/22 04:06 01/06/22 04:06 Labs: Laboratory Last Values WBC 7.7 K/mm3 (4.5-11.0) 01/06/22 04:06 RBC 2.89 M/mm3 (3.65-5.03) L 01/06/22 04:06 Hgb 7.7 gm/dl (10.1-14.3) L 01/06/22 04:06 Hct 23.8 % (30.3-42.9) L 01/06/22 04:06 MCV 82 fl (79-97) 01/06/22 04:06 MCH 27 pg (28-32) L 01/06/22 04:06 MCHC 33 % (30-34) 01/06/22 04:06 RDW 18.0 % (13.2-15.2) H 01/06/22 04:06 Plt Count 225 K/mm3 (140-440) 01/06/22 04:06 Add Manual Diff Complete 12/20/21 04:54 Total Counted 100 12/20/21 04:54 Seg Neutrophils % Automatic Brine Mixer Operator 11/06/21 15:50 Seg Neuts % (Manual) 88.0 % (40.0-70.0) H 12/20/21 04:54 Band Neutrophils % 0 % 12/20/21 04:54 Lymphocytes % (Manual) 6.0 % (13.4-35.0) L 12/20/21 04:54 Reactive Lymphs % (Man) 0 % 12/20/21 04:54 Monocytes % (Manual) 5.0 % (0.0-7.3) 12/20/21 04:54 Eosinophils % (Manual) 1.0 % (0.0-4.3) 12/20/21 04:54 Basophils % (Manual) 0 % (0.0-1.8) 12/20/21 04:54 Metamyelocytes % 0 % 12/20/21 04:54 Myelocytes % 0 % 12/20/21 04:54 Promyelocytes % 0 % 12/20/21 04:54 Blast Cells % 0 % 12/20/21 04:54 Nucleated RBC % Not Reportable 12/20/21 04:54 Seg Neutrophils # Man 10.8 K/mm3 (1.8-7.7) H 12/20/21 04:54 Band Neutrophils # 0.0 K/mm3 12/20/21 04:54 Lymphocytes # (Manual) 0.7 K/mm3 (1.2-5.4) L 12/20/21 04:54 Abs React Lymphs (Man) 0.0 K/mm3 12/20/21 04:54 Monocytes # (Manual) 0.6 K/mm3 (0.0-0.8) 12/20/21 04:54 Eosinophils # (Manual) 0.1 K/mm3 (0.0-0.4) 12/20/21 04:54 Basophils # (Manual) 0.0 K/mm3 (0.0-0.1) 12/20/21 04:54 Metamyelocytes # 0.0 K/mm3 12/20/21 04:54 Myelocytes # 0.0 K/mm3 12/20/21 04:54 Promyelocytes # 0.0 K/mm3 12/20/21 04:54 Blast Cells # 0.0 K/mm3 12/20/21 04:54 WBC Morphology Not Reportable 12/20/21 04:54 Hypersegmented Neuts Not Reportable 12/20/21 04:54 Hyposegmented Neuts Not Reportable 12/20/21 04:54 Hypogranular Neuts Not Reportable 12/20/21 04:54 Smudge Cells Not Reportable 12/20/21 04:54 Toxic Granulation Not Reportable 12/20/21 04:54 Toxic Vacuolation Not Reportable 12/20/21 04:54 Dohle Bodies Not Reportable 12/20/21 04:54 Pelger-Huet Anomaly Not Reportable 12/20/21 04:54 Irina Rods Not Reportable 12/20/21 04:54 Platelet Estimate Consistent w auto 12/20/21 04:54 Clumped Platelets Not Reportable 12/20/21 04:54 Plt Clumps, EDTA Not Reportable 12/20/21 04:54 Large Platelets Not Reportable 12/20/21 04:54 Giant Platelets Not Reportable 12/20/21 04:54 Platelet Satelliting Not Reportable 12/20/21 04:54 Plt Morphology Comment Not Reportable 12/20/21 04:54 RBC Morphology Not Reportable 12/20/21 04:54 Dimorphic RBCs Not Reportable 12/20/21 04:54 Polychromasia Not Reportable 12/20/21 04:54 Hypochromasia Not Reportable 12/20/21 04:54 Poikilocytosis Not Reportable 12/20/21 04:54 Anisocytosis 1+ 12/20/21 04:54 Microcytosis Not Reportable 12/20/21 04:54 Macrocytosis Not Reportable 12/20/21 04:54 Spherocytes Not Reportable 12/20/21 04:54 Pappenheimer Bodies Not Reportable 12/20/21 04:54 Sickle Cells Not Reportable 12/20/21 04:54 Target Cells Not Reportable 12/20/21 04:54 Tear Drop Cells Not Reportable 12/20/21 04:54 Ovalocytes Not Reportable 12/20/21 04:54 Helmet Cells Not Reportable 12/20/21 04:54 [place] Bodies Not Reportable 12/20/21 04:54 [place] Rings Not Reportable 12/20/21 04:54 [place] Cells Not Reportable 12/20/21 04:54 Bite Cells Not Reportable 12/20/21 04:54 Crenated Cell Not Reportable 12/20/21 04:54 Elliptocytes Not Reportable 12/20/21 04:54 Acanthocytes (Spur) Not Reportable 12/20/21 04:54 Rouleaux Not Reportable 12/20/21 04:54 Hemoglobin C Crystals Not Reportable 12/20/21 04:54 Schistocytes Not Reportable 12/20/21 04:54 Malaria parasites Not Reportable 12/20/21 04:54 [place] Bodies Not Reportable 12/20/21 04:54 Hem Pathologist Commnt No 12/20/21 04:54 PT 16.9 Sec. (12.2-14.9) H 01/06/22 04:06 INR 1.23 (0.87-1.13) H 01/06/22 04:06 APTT 29.2 Sec. (24.2-36.6) 11/26/21 05:00 D-Dimer 2655.00 ng/mlDDU (0-234) H 11/11/21 04:28 ABG pH 7.479 pH Units (7.350-7.450) H 12/16/21 20:52 ABG pCO2 37.5 mm Hg 12/16/21 20:52 ABG pO2 79.3 mm Hg (80.0-90.0) L 12/16/21 20:52 ABG HCO3 27.3 mmol/L (20.0-26.0) H 12/16/21 20:52 ABG O2 Saturation 97.0 % (95.0-99.0) 12/16/21 20:52 ABG O2 Content 12.3 (0.0-44) 12/16/21 20:52 ABG Base Excess 3.6 mmol/L (-2.0-3.0) H 12/16/21 20:52 ABG Hemoglobin 9.1 gm/dl (12.0-16.0) L 12/16/21 20:52 ABG Carboxyhemoglobin 1.6 % (0.0-5.0) 12/16/21 20:52 ABG Methemoglobin 0.5 % (0.0-1.5) 12/16/21 20:52 Oxyhemoglobin 94.9 % (95.0-99.0) L 12/16/21 20:52 FiO2 30 % 12/16/21 20:52 Sodium 132 mmol/L (137-145) L 01/06/22 04:06 Potassium 3.6 mmol/L (3.6-5.0) 01/06/22 04:06 Chloride 92.3 mmol/L (98-107) L 01/06/22 04:06 Carbon Dioxide 27 mmol/L (22-30) 01/06/22 04:06 Anion Gap 16 mmol/L 01/06/22 04:06 BUN 26 mg/dL (7-17) H 01/06/22 04:06 Creatinine 0.6 mg/dL (0.6-1.2) 01/06/22 04:06 Estimated GFR > 60 ml/min 01/06/22 04:06 BUN/Creatinine Ratio 43 % 01/06/22 04:06 Glucose 111 mg/dL (65-100) H 01/06/22 04:06 POC Glucose 110 mg/dL (70-105) H 01/05/22 23:27 Lactic Acid 3.70 mmol/L (0.7-2.0) H* 11/03/21 22:32 Calcium 8.7 mg/dL (8.4-10.2) 01/06/22 04:06 Phosphorus 3.80 mg/dL (2.5-4.5) 01/05/22 04:30 Magnesium 2.00 mg/dL (1.7-2.3) 01/05/22 04:30 Ferritin 52.6 ng/mL (10.0-200.0) 11/05/21 06:11 Total Bilirubin 0.50 mg/dL (0.1-1.2) 11/17/21 05:56 Direct Bilirubin < 0.2 mg/dL (0-0.2) 11/11/21 04:28 Indirect Bilirubin 0.1 mg/dL 11/11/21 04:28 AST 36 units/L (5-40) 11/17/21 05:56 ALT 47 units/L (7-56) 11/17/21 05:56 Alkaline Phosphatase 107 units/L (35-129) 11/17/21 05:56 Ammonia 42.0 umol/L (25-60) 11/10/21 14:08 Lactate Dehydrogenase 187 units/L (91-180) H 11/05/21 06:11 Troponin T 0.045 ng/mL (0.00-0.029) H 11/29/21 20:15 C-Reactive Protein 22.20 mg/dL (0.00-1.30) H 11/05/21 06:11 NT-Pro-B Natriuret Pep 7895 pg/mL (0-900) H 11/03/21 22:32 Total Protein 5.1 g/dL (6.3-8.2) L 11/17/21 05:56 Albumin 2.2 g/dL (3.9-5) L 11/17/21 05:56 Albumin/Globulin Ratio 0.8 % 11/17/21 05:56 Triglycerides 59 mg/dL (2-149) 11/29/21 20:15 Cholesterol 74 mg/dL (50-199) 11/29/21 20:15 LDL Cholesterol Direct 25 mg/dL (50-130) L 11/29/21 20:15 HDL Cholesterol 41 mg/dL (40-59) 11/29/21 20:15 Cholesterol/HDL Ratio 1.80 % 11/29/21 20:15 Vitamin B12 1823 pg/mL (211-911) H 11/10/21 14:08 TSH 1.510 mlU/mL (0.270-4.200) 11/10/21 14:08 Urine Color Yellow (Yellow) 11/11/21 09:00 Urine Turbidity Slightly-cloudy (Clear) 11/11/21 09:00 Urine pH 5.0 (5.0-7.0) 11/11/21 09:00 Ur Specific [place] 1.009 (1.003-1.030) 11/11/21 09:00 Urine Protein <15 mg/dl mg/dL (Negative) 11/11/21 09:00 Urine Glucose (UA) Neg mg/dL (Negative) 11/11/21 09:00 Urine Ketones Neg mg/dL (Negative) 11/11/21 09:00 Urine Blood Mod (Negative) 11/11/21 09:00 Urine Nitrite Neg (Negative) 11/11/21 09:00 Urine Bilirubin Neg (Negative) 11/11/21 09:00 Urine Urobilinogen < 2.0 mg/dL (<2.0) 11/11/21 09:00 Ur Leukocyte Esterase Neg (Negative) 11/11/21 09:00 Urine WBC (Auto) < 1.0 /HPF (0.0-6.0) 11/11/21 09:00 Urine RBC (Auto) < 1.0 /HPF (0.0-6.0) 11/11/21 09:00 Vancomycin Trough 22.8 ug/mL (5.0-20.0) H 01/02/22 17:30 Random Vancomycin 10.5 ug/mL (0-40.0) 01/04/22 05:00 Coronavirus (PCR) Negative (Negative) 11/10/21 08:30 Blood Type O POSITIVE 12/14/21 10:30 Antibody Screen Negative 12/14/21 10:30 Crossmatch See Detail 12/14/21 10:30 Gamble/IV: Voiding Method External Female Catheter Active Medications - Current Medications Current Medications: Generic Name Dose Route Start Last Admin Trade Name Freq PRN Reason Stop Dose Admin Acetaminophen 650 mg 12/14/21 04:12 01/01/22 11:45 Acetaminophen 325 Mg/10.15 Ml Oral Liqd Unit Dose FEEDTUBE 650 mg Q6H PRN Administration Non Cardiac Pain or Temp>100.5 Hydrocodone Bitart/Acetaminophen 1 each 11/21/21 10:00 01/05/22 21:16 Hydrocodone/Acetaminophen 10-325mg Tab FEEDTUBE 1 each TID YOSSI Administration Alprazolam 0.25 mg 12/30/21 09:00 01/05/22 23:28 Alprazolam 0.25 Mg Tab FEEDTUBE 0.25 mg Q8H PRN Administration Agitation Lipase/Protease/Amylase 1 each 11/08/21 11:09 Lipase 10,500/Protease 25,000/Amylase 43,750 (Units) Dr Lema FEEDTUBE PRN PRN For Clogged Feeding Tube Buspirone HCl 7.5 mg 12/30/21 10:00 01/05/22 21:18 Buspirone 5 Mg Tab FEEDTUBE 7.5 mg BID YOSSI Administration Dextrose 0 ml 11/10/21 10:52 12/30/21 00:48 Dextrose 10% *Hypoglycemia IV 50 ml PRN PRN Administration Hypoglycemia Docusate Sodium 100 mg 12/30/21 10:00 01/05/22 21:18 Docusate Sodium 100 Mg/10 Ml Oral Liqd FEEDTUBE 100 mg BID YOSSI Administration Gabapentin 100 mg 12/30/21 10:00 01/05/22 10:11 Gabapentin 100 Mg Cap FEEDTUBE 100 mg QDAY YOSSI Administration Hydromorphone HCl 0.5 mg 12/08/21 20:06 01/05/22 14:20 Hydromorphone 1 Mg/1 Ml Inj IV 0.5 mg Q3H PRN Administration Pain, Moderate (4-6) Hydrophilic Ointment 1 applic 11/06/21 04:02 Lip Therapy Vaseline TP Q2HR PRN Dry Lips Vancomycin HCl 1 gm in 250 mls @ 166.667 mls/hr 01/04/22 10:00 01/04/22 09:14 Vancomycin/Ns 1 Gm/250 Ml IV 01/26/22 11:29 166.667 mls/hr Q48H YOSSI Administration Lansoprazole 30 mg 11/24/21 22:00 01/05/22 21:18 Lansoprazole 30 Mg Solutab FEEDTUBE 30 mg BID YOSSI Administration Levothyroxine Sodium 125 mcg 12/31/21 06:00 01/06/22 06:49 Levothyroxine 125 Mcg Tab FEEDTUBE Not Given DAILY@0600 YOSSI Melatonin 5 mg 12/05/21 22:00 01/05/22 21:18 Melatonin 5 Mg Tab PO 5 mg QHS YOSSI Administration Metoprolol Tartrate 6.25 mg 12/30/21 10:00 01/05/22 21:19 Metoprolol Tartrate 25 Mg Tab FEEDTUBE 6.25 mg BID YOSSI Administration Midodrine 5 mg 12/30/21 09:00 01/05/22 18:47 Midodrine 5 Mg Tab FEEDTUBE Not Given TID@0800,1200,1600 [facility] Multi-Ingred Cream/Lotion/Oil/Oint 1 applic 11/06/21 04:02 Mineral Oil/Petrolatum, White Ophth Oint 3.5 Gm OU Q4HR PRN Dry Eye(s) Ondansetron HCl 4 mg 12/05/21 10:00 01/05/22 21:19 Ondansetron 4 Mg/2 Ml Inj IV 4 mg Q8H PRN Administration Nausea And Vomiting Polyethylene Glycol 17 gm 12/30/21 10:00 01/05/22 10:12 Polyethylene Glycol 3350 17 Gm Powder FEEDTUBE 17 gm QDAY [facility] Administration Pravastatin Sodium 20 mg 12/30/21 22:00 01/05/22 21:19 Pravastatin 20 Mg Tab FEEDTUBE 20 mg QHS YOSSI Administration Quetiapine Fumarate 25 mg 12/30/21 10:00 01/05/22 10:12 Quetiapine 25 Mg Tab FEEDTUBE 25 mg QAM YOSSI Administration Quetiapine Fumarate 50 mg 12/30/21 22:00 01/05/22 21:18 Quetiapine 25 Mg Tab FEEDTUBE 50 mg QHS YOSSI Administration Senna 17.6 mg 12/29/21 11:00 01/05/22 21:18 Sennosides Oral Liqd 8.8 Mg/5 Ml Oral Liqd FEEDTUBE 17.6 mg Q12HR YOSSI Administration Simple Syrup 15 ml 11/08/21 11:09 Simple Syrup 15 Ml FEEDTUBE PRN PRN Hypoglycemia Simple Syrup 30 ml 11/08/21 11:09 Simple Syrup 15 Ml FEEDTUBE PRN PRN Hypoglycemia Sodium Bicarbonate 325 mg 11/08/21 11:09 Sodium Bicarbonate 325 Mg Tab FEEDTUBE PRN PRN For Clogged Feeding Tube Sodium Chloride 10 ml 11/04/21 10:00 01/05/22 21:20 Sodium Chloride 0.9% 10 Ml Flush Syringe IV 10 ml BID YOSSI Administration Sodium Chloride 10 ml 11/04/21 02:03 Sodium Chloride 0.9% 10 Ml Flush Syringe IV PRN PRN LINE FLUSH Spironolactone 25 mg 12/30/21 10:00 01/05/22 10:11 Spironolactone 25 Mg Tab FEEDTUBE 25 mg QDAY YOSSI Administration Sucralfate 1 gm 12/30/21 12:00 01/06/22 06:49 Sucralfate 1 Gm/10 Ml Oral Liqd FEEDTUBE Not Given Q6HR YOSSI Trazodone HCl 50 mg 12/04/21 22:00 01/05/22 21:18 Trazodone 50 Mg Tab PO 50 mg QHS YOSSI Administration Nutrition/Malnutrition Assess - Dietary Evaluation Nutrition/Malnutrition Findings: Nutrition Notes Start: 11/04/21 17:16 Freq: Status: Active Protocol: Document 01/02/22 12:11 [facility] (Rec: 01/02/22 12:17 [facility] [id number]) Nutrition Notes Initial or Follow up Reassessment Current Diagnosis Diabetes,Heart Failure, Respiratory Failure Other Pertinent Diagnosis Bacteremia, pneu, Bilat pleural effusion, Agitation/ anxiety Current Diet TF - Vital AF 1.2 at 45ml/hr Labs/Tests Na 131 K 3.5 BUN 27 Pertinent Medications 25% Human Albumin, Colace, Lasix, Reglan, Miralax, 40mEq KCl, Senokot, Sucralfate Height 5 ft Weight 73.3 kg [place] Body Weight (kg) 45.45 BMI 31.5 Weight change and time frame Current wt obtained from bed scale Weight Status Obese Subjective/Other Information Observed TF infusing at goal rate. Pt remains on vent support. Percent of energy/protein needs met: 100% energy 89% pro Burn Absent Trauma Absent #1 Nutrition Diagnosis Inadequate oral intake Diagnosis Progress(for reassessment Continues documentation) Is patient on ventilator? Yes Is Patient Ambulatory and/or Out of Bed No [facility] 1338.492 Kcal/Kg value to use for calculation 17 Approximate Energy Requirements Using 1246 kcal/Kg Calculation Used for Recommendations Kcal/kg Additional Notes Pro needs 2g/kg IBW: 91g/day Fluid needs per MD. Nutrition Intervention Nutrition Support: Continue Vital AF 1.2 at 45ml/ hr with 70ml water flush q4h. Kcal 1,296 Protein (gm) 81 Carbohydrates (gm) 119 Fat (gm) 58 Fluid (mL) 876 Fiber (gm) 6 Goal #1 TF tolerance Goal #2 TF to meet at least 75% energy and pro needs Follow-Up By: 01/09/22 Additional Comments F/U: stable TF, vent status, wt
[2022-01-05] MEDS: PRAVASTATIN 20 MG TAB FEEDTUBE SCH (21:19)
[2022-01-05] MEDS: ONDANSETRON 4 MG/2 ML INJ IV PRN (21:19)
[2022-01-05] MEDS: ALPRAZolam 0.25 MG TAB FEEDTUBE PRN (23:28)
[2022-01-06 04:43] LABS: Hematocrit 23.8 % (30.3-42.9); Hemoglobin 7.7 gm/dl (10.1-14.3); Mean Corpuscular HGB Conc 33 % (30-34); Mean Corpuscular Volume 82 fl (79-97); Platelet Count 225 K/mm3 (140-440); Red Blood Count 2.89 M/mm3 (3.65-5.03)
[2022-01-06 04:52] LABS: INR 1.23 (0.87-1.13)
[2022-01-06 05:07] LABS: Blood Urea Nitrogen 26 mg/dL (7-17); Calcium 8.7 mg/dL (8.4-10.2); Hemolysis Index 0
[2022-01-06 05:18] LABS: BUN/Creatinine Ratio 43
--- NOTE | 2022-01-06 06:31 | Ultrasound Report ---
US CHEST INDICATION / CLINICAL INFORMATION: PLEURAL EFFUSION. COMPARISON: 12/30/21. FINDINGS: There are bilateral pleural effusions, larger on the right than the left. The right effusion measures approximately 1989 cc and the left effusion 375 cc. IMPRESSION: Bilateral pleural effusions, larger on the right than the left. Signer Name: Deven Nguyễn MD Signed: 01/06/2022 6:26 AM Workstation Name: [id number]
[2022-01-06] MEDS: LEVOTHYROXINE 125 MCG TAB FEEDTUBE SCH (06:49)
[2022-01-06] MEDS: SUCRALFATE 1 GM/10 ML ORAL LIQD FEEDTUBE SCH ×4 (06:49→23:14)
[2022-01-06] MEDS: HYDROcodone/ACETAMINOPHEN 10-325MG TAB FEEDTUBE SCH ×3 (08:22→20:17)
[2022-01-06] MEDS: MIDODRINE 5 MG TAB FEEDTUBE SCH ×3 (08:22→17:19)
[2022-01-06] MEDS: SPIRONOLACTONE 25 MG TAB FEEDTUBE SCH (10:21)
[2022-01-06] MEDS: DOCUSATE SODIUM 100 MG/10 ML ORAL LIQD FEEDTUBE SCH ×2 (10:21→23:13)
[2022-01-06] MEDS: busPIRone 5 MG TAB FEEDTUBE SCH ×2 (10:21→23:13)
[2022-01-06] MEDS: GABAPENTIN 100 MG CAP FEEDTUBE SCH (10:22)
[2022-01-06] MEDS: POLYETHYLENE GLYCOL 3350 17 GM POWDER FEEDTUBE SCH (10:22)
[2022-01-06] MEDS: LANSOPRAZOLE 30 MG SOLUTAB FEEDTUBE SCH ×2 (10:22→23:14)
[2022-01-06] MEDS: METOPROLOL TARTRATE 25 MG TAB FEEDTUBE SCH ×2 (10:22→23:15)
[2022-01-06] MEDS: QUEtiapine 25 MG TAB FEEDTUBE SCH ×2 (10:22→23:13)
[2022-01-06] MEDS: SENNOSIDES ORAL LIQD 8.8 MG/5 ML ORAL LIQD FEEDTUBE SCH ×2 (10:22→23:20)
[2022-01-06] MEDS: VANCOMYCIN/NS 1 GM/250 ML 1 GM/250 ML BAG IV SCH (10:23)
--- NOTE | 2022-01-06 11:53 | Progress Note ---
Assessment and Plan Gram positive Bacteremia (MRSA) Acute respiratory failure with hypoxia, now on MVS Acute microcytic anemia Bilateral pneumonia DVT Left pleural effusion Cardiomyopathy EF 30-35% Moderate pulmonary HTN - resume Lasix but 20 mg p.o. daily re: CHF & developing anasarca - hopefully weans better this time post thoracentesis - continue daily SAT and SBT assessment as tolerated - no new issues otherwise, continue care as below; - LTAC evaluation ongoing - continue Seroquel - continue Vancomycin for MRSA bacteremia (6 weeks of therapy recommended) - prn Levophed for target MAP > 65 mmHg - continue to wean supplemental oxygen for target O2 sat's > 90% acutely - VAP bundle addressed - continue lung protective strategies - continue bronchodilators with routine trach care and pulmonary hygiene per RT - wean per pulmonary driven protocols otherwise - avoid nephrotoxins, renally dose all medications - continue accuchecks with glycemic control per SSI (While critically ill target blood glucose of 140-180 mg/dL; avoid hypoglycemia) - sedation prn for target RASS 0 to -1 - antibiotics per ID recommendations - continue to avoid benzodiazepine's, reduce the possibility of delirium - prn analgesia per CPOT score - Maintenance of sleep-wake cycle, avoid delirium - continue enteral nutritional support at goal rate as tolerated - G.I. & VTE prophylaxis - PT/OT/ROM exercises - continue mobility protocols for pressure ulcer prophylaxis - Monitor hemodynamics closely - continue other care per attending / other consultants - discharge planning ongoing concurrently COVID SPECIFIC INTERVENTIONS - COVID-19 PCR negative .... Re-evaluate in am & prn CONDITION: CRITICAL PROGNOSIS: GUARDED CODE STATUS: FULL CODE The high probability of a clinically significant, sudden or life-threatening deterioration of the [respiratory, cardiovascular & neurologic] system(s) required my full and direct attention, intervention and personal management. The aggregate critical care time was [34] minutes without overlap. Time includes spent on; [x] Data Review and interpretation [x] Patient assessment and monitoring of vital signs [x] Documentation [x] Medication orders and management Subjective Date of service: 01/06/22 Principal diagnosis: Septic shock; AHRF; Anemia; Pneumonia; pleural effusion; HFrEF; Pulm HTN Interval history: Patient is seen today for: Septic shock; Acute hypoxemic respiratory failure; Anemia; Bilateral pneumonia; Left pleural effusion; HFrEF 30-35%; Pulm HTN RVSP 49 Seen and examined at bedside; 24hour events reviewed; nursing and respiratory care staff consulted; no adverse overnight events reported to me; resting in bed; for thoracentesis today; placed on PSV trial with p-supp @ 18 cm H2O and tolerating well so far; denies N/V/F/C Objective Vital Signs - 12hr 01/05/22 01/06/22 01/06/22 23:55 00:00 01:00 Temperature Pulse Rate 60 60 63 Pulse Rate [ 60 From Monitor] Respiratory 14 14 Rate Blood Pressure 106/43 106/43 O2 Sat by Pulse 100 100 Oximetry O2 Sat by Pulse Oximetry [ Assessment] 01/06/22 01/06/22 01/06/22 02:00 03:00 04:00 Temperature Pulse Rate 66 60 60 Pulse Rate [ From Monitor] Respiratory 13 14 14 Rate Blood Pressure 123/39 123/58 125/59 O2 Sat by Pulse 100 100 100 Oximetry O2 Sat by Pulse Oximetry [ Assessment] 01/06/22 01/06/22 01/06/22 04:05 04:23 05:00 Temperature 97.2 F L Pulse Rate 60 60 Pulse Rate [ From Monitor] Respiratory 14 Rate Blood Pressure 135/60 O2 Sat by Pulse 100 Oximetry O2 Sat by Pulse Oximetry [ Assessment] 01/06/22 01/06/22 01/06/22 05:40 06:00 07:00 Temperature Pulse Rate 60 60 60 Pulse Rate [ From Monitor] Respiratory 14 14 Rate Blood Pressure 135/60 116/39 124/65 O2 Sat by Pulse 100 100 100 Oximetry O2 Sat by Pulse Oximetry [ Assessment] 01/06/22 01/06/22 01/06/22 08:00 08:10 08:51 Temperature 97.4 F L Pulse Rate 62 60 Pulse Rate [ 60 From Monitor] Respiratory 14 Rate Blood Pressure 127/58 127/58 O2 Sat by Pulse 100 100 Oximetry O2 Sat by Pulse 100 Oximetry [ Assessment] 01/06/22 01/06/22 01/06/22 09:00 10:00 10:22 Temperature Pulse Rate 60 60 60 Pulse Rate [ From Monitor] Respiratory 14 14 Rate Blood Pressure 129/57 123/51 O2 Sat by Pulse 100 100 Oximetry O2 Sat by Pulse Oximetry [ Assessment] 01/06/22 01/06/22 11:00 11:33 Temperature Pulse Rate 60 60 Pulse Rate [ From Monitor] Respiratory 14 Rate Blood Pressure 116/49 116/49 O2 Sat by Pulse 100 100 Oximetry O2 Sat by Pulse Oximetry [ Assessment] Constitutional: alert, appears uncomfortable, other (trach to MVS, frail elderly woman with mildly increased respiratory effort at rest on MVS) Eyes: non-icteric ENT: oropharynx moist, other (+ Midline tracheostomy is clean) Neck: supple, no lymphadenopathy, no JVD Effort: mildly labored Ascultation: Bilateral: diminished breath sounds, rhonchi Percussion: Bilateral: dull (bases) Cardiovascular: regular rate and rhythm, other (S1,S2) Gastrointestinal: normoactive bowel sounds, soft, non-tender, other (distended and firm but not tense) Integumentary: normal Extremities: no cyanosis, pink and warm, pulses normal, edema Neurologic: normal mental status, non-focal exam (grossly), pupils equal and round, motor strength normal and Psychiatric: mood appropriate, affect normal CBC and BMP: 01/06/22 04:06 01/06/22 04:06 ABG, PT/INR, D-dimer: ABG ABG pH 7.479 pH Units (7.350-7.450) H 12/16/21 20:52 ABG pCO2 37.5 mm Hg 12/16/21 20:52 ABG pO2 79.3 mm Hg (80.0-90.0) L 12/16/21 20:52 ABG O2 Saturation 97.0 % (95.0-99.0) 12/16/21 20:52 PT/INR, D-dimer PT 16.9 Sec. (12.2-14.9) H 01/06/22 04:06 INR 1.23 (0.87-1.13) H 01/06/22 04:06 D-Dimer 2655.00 ng/mlDDU (0-234) H 11/11/21 04:28 Abnormal lab findings: Abnormal Labs 11/03/21 11/03/21 11/03/21 22:32 22:32 22:32 WBC 29.3 H RBC 2.93 L Hgb 6.1 L Hct 21.9 L MCV 75 L MCH 21 L MCHC 28 L RDW 19.7 H Plt Count Seg Neuts % (Manual) 97.0 H Lymphocytes % (Manual) 3.0 L Seg Neutrophils # Man 28.4 H Lymphocytes # (Manual) 0.9 L Monocytes # (Manual) PT 18.6 H INR 1.40 H D-Dimer ABG pH ABG pO2 ABG HCO3 ABG O2 Saturation ABG Base Excess ABG Hemoglobin Oxyhemoglobin Sodium Potassium Chloride Carbon Dioxide 20 L BUN 33 H Creatinine Glucose 119 H POC Glucose Lactic Acid Calcium 8.3 L Phosphorus Magnesium AST ALT Alkaline Phosphatase Lactate Dehydrogenase Troponin T 0.035 H C-Reactive Protein NT-Pro-B Natriuret Pep Total Protein Albumin LDL Cholesterol Direct 34 L Vitamin B12 Vancomycin Trough Crossmatch 11/03/21 11/03/21 11/03/21 22:32 22:32 23:57 WBC RBC Hgb Hct MCV MCH MCHC RDW Plt Count Seg Neuts % (Manual) Lymphocytes % (Manual) Seg Neutrophils # Man Lymphocytes # (Manual) Monocytes # (Manual) PT INR D-Dimer ABG pH ABG pO2 ABG HCO3 ABG O2 Saturation ABG Base Excess ABG Hemoglobin Oxyhemoglobin Sodium Potassium Chloride Carbon Dioxide BUN Creatinine Glucose POC Glucose Lactic Acid 3.70 H* Calcium Phosphorus Magnesium AST ALT Alkaline Phosphatase 139 H Lactate Dehydrogenase Troponin T C-Reactive Protein NT-Pro-B Natriuret Pep 7895 H Total Protein Albumin 3.5 L LDL Cholesterol Direct Vitamin B12 Vancomycin Trough Crossmatch See Detail 11/04/21 11/04/21 11/05/21 00:59 13:58 00:51 WBC 27.9 H RBC 3.28 L Hgb 7.3 L Hct 25.5 L MCV 78 L MCH 22 L MCHC 29 L RDW 19.1 H Plt Count Seg Neuts % (Manual) 96.0 H Lymphocytes % (Manual) 2.0 L Seg Neutrophils # Man 26.8 H Lymphocytes # (Manual) 0.6 L Monocytes # (Manual) PT INR D-Dimer ABG pH ABG pO2 ABG HCO3 ABG O2 Saturation ABG Base Excess ABG Hemoglobin Oxyhemoglobin Sodium Potassium Chloride Carbon Dioxide BUN Creatinine Glucose POC Glucose Lactic Acid Calcium Phosphorus Magnesium AST ALT Alkaline Phosphatase Lactate Dehydrogenase Troponin T 0.051 H D 0.032 H D C-Reactive Protein NT-Pro-B Natriuret Pep Total Protein Albumin LDL Cholesterol Direct Vitamin B12 Vancomycin Trough Crossmatch 11/05/21 11/05/21 11/05/21 06:11 06:11 06:11 WBC 31.8 H RBC 3.57 L Hgb 8.0 L Hct 27.7 L MCV 78 L MCH 22 L MCHC 29 L RDW 19.2 H Plt Count Seg Neuts % (Manual) 91.0 H Lymphocytes % (Manual) 4.5 L Seg Neutrophils # Man 28.9 H Lymphocytes # (Manual) Monocytes # (Manual) 1.1 H PT INR D-Dimer 1494.53 H ABG pH ABG pO2 ABG HCO3 ABG O2 Saturation ABG Base Excess ABG Hemoglobin Oxyhemoglobin Sodium Potassium Chloride Carbon Dioxide 19 L BUN 42 H Creatinine Glucose 115 H POC Glucose Lactic Acid Calcium Phosphorus Magnesium AST 43 H ALT Alkaline Phosphatase Lactate Dehydrogenase 187 H Troponin T C-Reactive Protein 22.20 H NT-Pro-B Natriuret Pep Total Protein 6.0 L Albumin 3.2 L LDL Cholesterol Direct Vitamin B12 Vancomycin Trough Crossmatch 11/05/21 11/05/21 11/06/21 06:11 12:15 00:30 WBC RBC Hgb Hct MCV MCH MCHC RDW Plt Count Seg Neuts % (Manual) Lymphocytes % (Manual) Seg Neutrophils # Man Lymphocytes # (Manual) Monocytes # (Manual) PT INR D-Dimer ABG pH ABG pO2 ABG HCO3 ABG O2 Saturation ABG Base Excess ABG Hemoglobin Oxyhemoglobin Sodium Potassium Chloride Carbon Dioxide BUN Creatinine Glucose POC Glucose 113 H 69 L Lactic Acid Calcium Phosphorus Magnesium AST ALT Alkaline Phosphatase Lactate Dehydrogenase Troponin T 0.033 H C-Reactive Protein NT-Pro-B Natriuret Pep Total Protein Albumin LDL Cholesterol Direct Vitamin B12 Vancomycin Trough Crossmatch 11/06/21 11/06/21 11/06/21 05:50 15:50 15:50 WBC 25.5 H RBC 3.62 L Hgb 8.0 L Hct 27.5 L MCV 76 L MCH 22 L MCHC 29 L RDW 19.6 H Plt Count Seg Neuts % (Manual) 92.0 H Lymphocytes % (Manual) 5.0 L Seg Neutrophils # Man 23.5 H Lymphocytes # (Manual) Monocytes # (Manual) PT INR D-Dimer ABG pH 7.305 L ABG pO2 ABG HCO3 15.8 L ABG O2 Saturation ABG Base Excess -9.6 L ABG Hemoglobin 8.6 L Oxyhemoglobin 94.6 L Sodium Potassium Chloride 113.9 H Carbon Dioxide 17 L BUN 56 H Creatinine Glucose 114 H POC Glucose Lactic Acid Calcium 7.9 L Phosphorus Magnesium AST 1410 H ALT 934 H Alkaline Phosphatase 142 H Lactate Dehydrogenase Troponin T C-Reactive Protein NT-Pro-B Natriuret Pep Total Protein 5.0 L Albumin 2.6 L LDL Cholesterol Direct Vitamin B12 Vancomycin Trough Crossmatch 11/07/21 11/07/21 11/07/21 03:30 04:50 08:07 WBC RBC Hgb Hct MCV MCH MCHC RDW Plt Count Seg Neuts % (Manual) Lymphocytes % (Manual) Seg Neutrophils # Man Lymphocytes # (Manual) Monocytes # (Manual) PT INR D-Dimer ABG pH ABG pO2 296.9 H ABG HCO3 18.1 L ABG O2 Saturation 99.5 H ABG Base Excess -5.9 L ABG Hemoglobin 7.6 L Oxyhemoglobin Sodium Potassium Chloride Carbon Dioxide BUN Creatinine Glucose POC Glucose 106 H 108 H Lactic Acid Calcium Phosphorus Magnesium AST ALT Alkaline Phosphatase Lactate Dehydrogenase Troponin T C-Reactive Protein NT-Pro-B Natriuret Pep Total Protein Albumin LDL Cholesterol Direct Vitamin B12 Vancomycin Trough Crossmatch 11/08/21 11/08/21 11/08/21 03:10 18:05 23:43 WBC RBC Hgb Hct MCV MCH MCHC RDW Plt Count Seg Neuts % (Manual) Lymphocytes % (Manual) Seg Neutrophils # Man Lymphocytes # (Manual) Monocytes # (Manual) PT INR D-Dimer ABG pH ABG pO2 127.4 H ABG HCO3 ABG O2 Saturation ABG Base Excess -3.4 L ABG Hemoglobin 7.4 L Oxyhemoglobin Sodium Potassium Chloride Carbon Dioxide BUN Creatinine Glucose POC Glucose 113 H 141 H Lactic Acid Calcium Phosphorus Magnesium AST ALT Alkaline Phosphatase Lactate Dehydrogenase Troponin T C-Reactive Protein NT-Pro-B Natriuret Pep Total Protein Albumin LDL Cholesterol Direct Vitamin B12 Vancomycin Trough Crossmatch 11/08/21 11/08/21 11/09/21 Unknown Unknown 02:00 WBC 14.5 H RBC 3.35 L Hgb 7.5 L 8.1 L Hct 25.4 L 27.6 L MCV 76 L 76 L MCH 23 L 22 L MCHC RDW 19.9 H 19.9 H Plt Count Seg Neuts % (Manual) Lymphocytes % (Manual) Seg Neutrophils # Man Lymphocytes # (Manual) Monocytes # (Manual) PT INR D-Dimer ABG pH ABG pO2 ABG HCO3 ABG O2 Saturation ABG Base Excess ABG Hemoglobin Oxyhemoglobin Sodium 154 H D Potassium 3.3 L Chloride 120.7 H Carbon Dioxide 20 L BUN 38 H Creatinine Glucose POC Glucose Lactic Acid Calcium 8.3 L Phosphorus Magnesium AST ALT Alkaline Phosphatase Lactate Dehydrogenase Troponin T C-Reactive Protein NT-Pro-B Natriuret Pep Total Protein Albumin LDL Cholesterol Direct Vitamin B12 Vancomycin Trough Crossmatch 11/09/21 11/09/21 11/09/21 02:00 02:31 05:12 WBC RBC Hgb Hct MCV MCH MCHC RDW Plt Count Seg Neuts % (Manual) Lymphocytes % (Manual) Seg Neutrophils # Man Lymphocytes # (Manual) Monocytes # (Manual) PT INR D-Dimer ABG pH 7.479 H ABG pO2 121.3 H ABG HCO3 ABG O2 Saturation ABG Base Excess ABG Hemoglobin 7.3 L Oxyhemoglobin Sodium Potassium Chloride 112.5 H Carbon Dioxide BUN 33 H Creatinine Glucose 161 H POC Glucose 135 H Lactic Acid Calcium Phosphorus Magnesium AST 251 H ALT 481 H Alkaline Phosphatase Lactate Dehydrogenase Troponin T C-Reactive Protein NT-Pro-B Natriuret Pep Total Protein 5.0 L Albumin 2.8 L LDL Cholesterol Direct Vitamin B12 Vancomycin Trough Crossmatch 11/09/21 11/09/21 11/09/21 11:33 16:32 23:28 WBC RBC Hgb Hct MCV MCH MCHC RDW Plt Count Seg Neuts % (Manual) Lymphocytes % (Manual) Seg Neutrophils # Man Lymphocytes # (Manual) Monocytes # (Manual) PT INR D-Dimer ABG pH ABG pO2 ABG HCO3 ABG O2 Saturation ABG Base Excess ABG Hemoglobin Oxyhemoglobin Sodium Potassium Chloride Carbon Dioxide BUN Creatinine Glucose POC Glucose 132 H 133 H 143 H Lactic Acid Calcium Phosphorus Magnesium AST ALT Alkaline Phosphatase Lactate Dehydrogenase Troponin T C-Reactive Protein NT-Pro-B Natriuret Pep Total Protein Albumin LDL Cholesterol Direct Vitamin B12 Vancomycin Trough Crossmatch 11/10/21 11/10/21 11/10/21 04:00 04:00 05:35 WBC 16.0 H RBC 3.61 L Hgb 8.0 L Hct 27.1 L MCV 75 L MCH 22 L MCHC RDW 20.4 H Plt Count Seg Neuts % (Manual) Lymphocytes % (Manual) Seg Neutrophils # Man Lymphocytes # (Manual) Monocytes # (Manual) PT INR D-Dimer ABG pH ABG pO2 ABG HCO3 ABG O2 Saturation ABG Base Excess ABG Hemoglobin Oxyhemoglobin Sodium 149 H Potassium Chloride 114.1 H Carbon Dioxide BUN 31 H Creatinine Glucose 148 H POC Glucose 132 H Lactic Acid Calcium 8.2 L Phosphorus Magnesium AST ALT Alkaline Phosphatase Lactate Dehydrogenase Troponin T C-Reactive Protein NT-Pro-B Natriuret Pep Total Protein Albumin LDL Cholesterol Direct Vitamin B12 Vancomycin Trough Crossmatch 11/10/21 11/10/21 11/10/21 11:31 14:08 15:35 WBC RBC Hgb Hct MCV MCH MCHC RDW Plt Count Seg Neuts % (Manual) Lymphocytes % (Manual) Seg Neutrophils # Man Lymphocytes # (Manual) Monocytes # (Manual) PT INR D-Dimer ABG pH ABG pO2 126.6 H ABG HCO3 ABG O2 Saturation ABG Base Excess ABG Hemoglobin 7.4 L Oxyhemoglobin Sodium Potassium Chloride Carbon Dioxide BUN Creatinine Glucose POC Glucose 147 H Lactic Acid Calcium Phosphorus Magnesium AST ALT Alkaline Phosphatase Lactate Dehydrogenase Troponin T C-Reactive Protein NT-Pro-B Natriuret Pep Total Protein Albumin LDL Cholesterol Direct Vitamin B12 1823 H Vancomycin Trough Crossmatch 11/10/21 11/11/21 11/11/21 17:53 00:55 04:28 WBC RBC Hgb Hct MCV MCH MCHC RDW Plt Count Seg Neuts % (Manual) Lymphocytes % (Manual) Seg Neutrophils # Man Lymphocytes # (Manual) Monocytes # (Manual) PT INR D-Dimer ABG pH ABG pO2 ABG HCO3 ABG O2 Saturation ABG Base Excess ABG Hemoglobin Oxyhemoglobin Sodium 149 H Potassium Chloride 112.2 H Carbon Dioxide BUN 34 H Creatinine Glucose 148 H POC Glucose 140 H 145 H Lactic Acid Calcium 7.9 L Phosphorus Magnesium AST 53 H ALT 203 H Alkaline Phosphatase Lactate Dehydrogenase Troponin T C-Reactive Protein NT-Pro-B Natriuret Pep Total Protein 4.9 L Albumin 2.6 L LDL Cholesterol Direct Vitamin B12 Vancomycin Trough Crossmatch 11/11/21 11/11/21 11/11/21 04:28 04:28 05:28 WBC 20.9 H RBC 3.47 L Hgb 7.5 L Hct 26.0 L MCV 75 L MCH 22 L MCHC 29 L RDW 21.6 H Plt Count 132 L Seg Neuts % (Manual) Lymphocytes % (Manual) Seg Neutrophils # Man Lymphocytes # (Manual) Monocytes # (Manual) PT INR D-Dimer 2655.00 H ABG pH ABG pO2 ABG HCO3 ABG O2 Saturation ABG Base Excess ABG Hemoglobin Oxyhemoglobin Sodium Potassium Chloride Carbon Dioxide BUN Creatinine Glucose POC Glucose 154 H Lactic Acid Calcium Phosphorus Magnesium AST ALT Alkaline Phosphatase Lactate Dehydrogenase Troponin T C-Reactive Protein NT-Pro-B Natriuret Pep Total Protein Albumin LDL Cholesterol Direct Vitamin B12 Vancomycin Trough Crossmatch 11/11/21 11/11/21 11/12/21 12:38 18:13 00:14 WBC RBC Hgb Hct MCV MCH MCHC RDW Plt Count Seg Neuts % (Manual) Lymphocytes % (Manual) Seg Neutrophils # Man Lymphocytes # (Manual) Monocytes # (Manual) PT INR D-Dimer ABG pH ABG pO2 ABG HCO3 ABG O2 Saturation ABG Base Excess ABG Hemoglobin Oxyhemoglobin Sodium Potassium Chloride Carbon Dioxide BUN Creatinine Glucose POC Glucose 137 H 108 H 137 H Lactic Acid Calcium Phosphorus Magnesium AST ALT Alkaline Phosphatase Lactate Dehydrogenase Troponin T C-Reactive Protein NT-Pro-B Natriuret Pep Total Protein Albumin LDL Cholesterol Direct Vitamin B12 Vancomycin Trough Crossmatch 11/12/21 11/12/21 11/12/21 05:40 06:24 11:12 WBC RBC Hgb Hct MCV MCH MCHC RDW Plt Count Seg Neuts % (Manual) Lymphocytes % (Manual) Seg Neutrophils # Man Lymphocytes # (Manual) Monocytes # (Manual) PT INR D-Dimer ABG pH 7.586 H ABG pO2 150.6 H ABG HCO3 27.2 H ABG O2 Saturation 99.1 H ABG Base Excess 5.2 H ABG Hemoglobin 7.5 L Oxyhemoglobin Sodium Potassium Chloride Carbon Dioxide BUN Creatinine Glucose POC Glucose 132 H 140 H Lactic Acid Calcium Phosphorus Magnesium AST ALT Alkaline Phosphatase Lactate Dehydrogenase Troponin T C-Reactive Protein NT-Pro-B Natriuret Pep Total Protein Albumin LDL Cholesterol Direct Vitamin B12 Vancomycin Trough Crossmatch 11/12/21 11/12/21 11/12/21 14:50 14:50 17:13 WBC 19.8 H RBC 3.27 L Hgb 7.1 L Hct 24.5 L MCV 75 L MCH 22 L MCHC 29 L RDW 22.3 H Plt Count Seg Neuts % (Manual) Lymphocytes % (Manual) Seg Neutrophils # Man Lymphocytes # (Manual) Monocytes # (Manual) PT INR D-Dimer ABG pH ABG pO2 ABG HCO3 ABG O2 Saturation ABG Base Excess ABG Hemoglobin Oxyhemoglobin Sodium 150 H Potassium 3.3 L Chloride 112.0 H Carbon Dioxide BUN 40 H Creatinine Glucose 151 H POC Glucose 121 H Lactic Acid Calcium 7.4 L Phosphorus 1.70 L Magnesium 1.40 L AST ALT Alkaline Phosphatase Lactate Dehydrogenase Troponin T C-Reactive Protein NT-Pro-B Natriuret Pep Total Protein Albumin LDL Cholesterol Direct Vitamin B12 Vancomycin Trough Crossmatch 11/12/21 11/13/21 11/13/21 23:19 05:34 06:30 WBC RBC Hgb Hct MCV MCH MCHC RDW Plt Count Seg Neuts % (Manual) Lymphocytes % (Manual) Seg Neutrophils # Man Lymphocytes # (Manual) Monocytes # (Manual) PT INR D-Dimer ABG pH ABG pO2 ABG HCO3 ABG O2 Saturation ABG Base Excess ABG Hemoglobin Oxyhemoglobin Sodium 149 H Potassium Chloride 60.0 L Carbon Dioxide BUN 40 H Creatinine Glucose 146 H POC Glucose 113 H 132 H Lactic Acid Calcium 7.3 L Phosphorus Magnesium 2.40 H AST ALT 72 H Alkaline Phosphatase Lactate Dehydrogenase Troponin T C-Reactive Protein NT-Pro-B Natriuret Pep Total Protein 5.2 L Albumin 2.2 L LDL Cholesterol Direct Vitamin B12 Vancomycin Trough Crossmatch 11/13/21 11/13/21 11/13/21 06:30 08:30 11:19 WBC 21.2 H RBC 3.12 L Hgb 6.8 L Hct 23.2 L MCV 74 L MCH 22 L MCHC 29 L RDW 22.2 H Plt Count 135 L Seg Neuts % (Manual) Lymphocytes % (Manual) Seg Neutrophils # Man Lymphocytes # (Manual) Monocytes # (Manual) PT INR D-Dimer ABG pH ABG pO2 ABG HCO3 ABG O2 Saturation ABG Base Excess ABG Hemoglobin Oxyhemoglobin Sodium Potassium Chloride Carbon Dioxide BUN Creatinine Glucose POC Glucose 136 H Lactic Acid Calcium Phosphorus Magnesium AST ALT Alkaline Phosphatase Lactate Dehydrogenase Troponin T C-Reactive Protein NT-Pro-B Natriuret Pep Total Protein Albumin LDL Cholesterol Direct Vitamin B12 Vancomycin Trough Crossmatch See Detail 11/13/21 11/14/21 11/14/21 18:21 00:01 04:46 WBC 20.0 H RBC 3.41 L Hgb 7.9 L Hct 26.8 L MCV MCH 23 L MCHC 29 L RDW 24.0 H Plt Count Seg Neuts % (Manual) Lymphocytes % (Manual) Seg Neutrophils # Man Lymphocytes # (Manual) Monocytes # (Manual) PT INR D-Dimer ABG pH ABG pO2 ABG HCO3 ABG O2 Saturation ABG Base Excess ABG Hemoglobin Oxyhemoglobin Sodium Potassium Chloride Carbon Dioxide BUN Creatinine Glucose POC Glucose 149 H 141 H Lactic Acid Calcium Phosphorus Magnesium AST ALT Alkaline Phosphatase Lactate Dehydrogenase Troponin T C-Reactive Protein NT-Pro-B Natriuret Pep Total Protein Albumin LDL Cholesterol Direct Vitamin B12 Vancomycin Trough Crossmatch 11/14/21 11/14/21 11/14/21 04:46 05:10 11:10 WBC RBC Hgb Hct MCV MCH MCHC RDW Plt Count Seg Neuts % (Manual) Lymphocytes % (Manual) Seg Neutrophils # Man Lymphocytes # (Manual) Monocytes # (Manual) PT INR D-Dimer ABG pH ABG pO2 ABG HCO3 ABG O2 Saturation ABG Base Excess ABG Hemoglobin Oxyhemoglobin Sodium 148 H Potassium Chloride 113.1 H Carbon Dioxide BUN 43 H Creatinine Glucose 140 H POC Glucose 132 H 133 H Lactic Acid Calcium 7.5 L Phosphorus Magnesium AST ALT Alkaline Phosphatase Lactate Dehydrogenase Troponin T C-Reactive Protein NT-Pro-B Natriuret Pep Total Protein Albumin LDL Cholesterol Direct Vitamin B12 Vancomycin Trough Crossmatch 11/14/21 11/14/21 11/14/21 16:14 17:48 23:23 WBC RBC Hgb Hct MCV MCH MCHC RDW Plt Count Seg Neuts % (Manual) Lymphocytes % (Manual) Seg Neutrophils # Man Lymphocytes # (Manual) Monocytes # (Manual) PT INR D-Dimer ABG pH ABG pO2 ABG HCO3 28.0 H ABG O2 Saturation ABG Base Excess 3.1 H ABG Hemoglobin 5.8 L Oxyhemoglobin 94.8 L Sodium Potassium Chloride Carbon Dioxide BUN Creatinine Glucose POC Glucose 130 H 136 H Lactic Acid Calcium Phosphorus Magnesium AST ALT Alkaline Phosphatase Lactate Dehydrogenase Troponin T C-Reactive Protein NT-Pro-B Natriuret Pep Total Protein Albumin LDL Cholesterol Direct Vitamin B12 Vancomycin Trough Crossmatch 11/15/21 11/15/21 11/15/21 05:20 05:50 05:50 WBC 19.9 H RBC 3.50 L Hgb 8.2 L Hct 27.9 L MCV MCH 23 L MCHC 29 L RDW 24.9 H Plt Count Seg Neuts % (Manual) Lymphocytes % (Manual) Seg Neutrophils # Man Lymphocytes # (Manual) Monocytes # (Manual) PT INR D-Dimer ABG pH ABG pO2 ABG HCO3 ABG O2 Saturation ABG Base Excess ABG Hemoglobin Oxyhemoglobin Sodium 149 H Potassium Chloride 112.0 H Carbon Dioxide BUN 48 H Creatinine Glucose 152 H POC Glucose 137 H Lactic Acid Calcium 7.9 L Phosphorus Magnesium AST ALT Alkaline Phosphatase Lactate Dehydrogenase Troponin T C-Reactive Protein NT-Pro-B Natriuret Pep Total Protein Albumin LDL Cholesterol Direct Vitamin B12 Vancomycin Trough Crossmatch 11/15/21 11/15/21 11/15/21 12:12 17:07 23:24 WBC RBC Hgb Hct MCV MCH MCHC RDW Plt Count Seg Neuts % (Manual) Lymphocytes % (Manual) Seg Neutrophils # Man Lymphocytes # (Manual) Monocytes # (Manual) PT INR D-Dimer ABG pH ABG pO2 ABG HCO3 ABG O2 Saturation ABG Base Excess ABG Hemoglobin Oxyhemoglobin Sodium Potassium Chloride Carbon Dioxide BUN Creatinine Glucose POC Glucose 114 H 135 H 123 H Lactic Acid Calcium Phosphorus Magnesium AST ALT Alkaline Phosphatase Lactate Dehydrogenase Troponin T C-Reactive Protein NT-Pro-B Natriuret Pep Total Protein Albumin LDL Cholesterol Direct Vitamin B12 Vancomycin Trough Crossmatch 11/16/21 11/16/21 11/16/21 05:21 10:00 10:00 WBC 21.7 H RBC 2.57 L Hgb 6.0 L Hct 20.2 L D MCV MCH 24 L MCHC RDW 26.3 H Plt Count Seg Neuts % (Manual) Lymphocytes % (Manual) Seg Neutrophils # Man Lymphocytes # (Manual) Monocytes # (Manual) PT INR D-Dimer ABG pH ABG pO2 ABG HCO3 ABG O2 Saturation ABG Base Excess ABG Hemoglobin Oxyhemoglobin Sodium 153 H Potassium Chloride 114.9 H Carbon Dioxide BUN 74 H Creatinine Glucose 155 H POC Glucose 127 H Lactic Acid Calcium 8.1 L Phosphorus Magnesium AST ALT Alkaline Phosphatase Lactate Dehydrogenase Troponin T C-Reactive Protein NT-Pro-B Natriuret Pep Total Protein Albumin LDL Cholesterol Direct Vitamin B12 Vancomycin Trough Crossmatch 11/16/21 11/16/21 11/16/21 11:34 14:00 15:25 WBC 17.2 H RBC 2.08 L Hgb 4.7 L* Hct 16.2 L* MCV 78 L MCH 23 L MCHC 29 L RDW 26.0 H Plt Count Seg Neuts % (Manual) 87.0 H Lymphocytes % (Manual) 8.0 L Seg Neutrophils # Man 15.0 H Lymphocytes # (Manual) Monocytes # (Manual) 0.9 H PT INR D-Dimer ABG pH ABG pO2 ABG HCO3 ABG O2 Saturation ABG Base Excess ABG Hemoglobin Oxyhemoglobin Sodium Potassium Chloride Carbon Dioxide BUN Creatinine Glucose POC Glucose 131 H Lactic Acid Calcium Phosphorus Magnesium AST ALT Alkaline Phosphatase Lactate Dehydrogenase Troponin T C-Reactive Protein NT-Pro-B Natriuret Pep Total Protein Albumin LDL Cholesterol Direct Vitamin B12 Vancomycin Trough Crossmatch See Detail 11/16/21 11/16/21 11/16/21 15:25 17:21 22:43 WBC RBC Hgb 8.6 L D Hct 27.7 L D MCV MCH MCHC RDW Plt Count Seg Neuts % (Manual) Lymphocytes % (Manual) Seg Neutrophils # Man Lymphocytes # (Manual) Monocytes # (Manual) PT INR D-Dimer ABG pH ABG pO2 ABG HCO3 ABG O2 Saturation ABG Base Excess ABG Hemoglobin Oxyhemoglobin Sodium 148 H Potassium Chloride 113.2 H Carbon Dioxide BUN 84 H Creatinine Glucose 164 H POC Glucose 124 H Lactic Acid Calcium 7.6 L Phosphorus Magnesium AST ALT Alkaline Phosphatase Lactate Dehydrogenase Troponin T C-Reactive Protein NT-Pro-B Natriuret Pep Total Protein Albumin LDL Cholesterol Direct Vitamin B12 Vancomycin Trough Crossmatch 11/16/21 11/17/21 11/17/21 23:07 05:33 05:56 WBC 25.1 H RBC 3.47 L Hgb 8.7 L Hct 28.5 L MCV MCH 25 L MCHC RDW 22.3 H Plt Count Seg Neuts % (Manual) Lymphocytes % (Manual) Seg Neutrophils # Man Lymphocytes # (Manual) Monocytes # (Manual) PT INR D-Dimer ABG pH ABG pO2 ABG HCO3 ABG O2 Saturation ABG Base Excess ABG Hemoglobin Oxyhemoglobin Sodium Potassium Chloride Carbon Dioxide BUN Creatinine Glucose POC Glucose 128 H 133 H Lactic Acid Calcium Phosphorus Magnesium AST ALT Alkaline Phosphatase Lactate Dehydrogenase Troponin T C-Reactive Protein NT-Pro-B Natriuret Pep Total Protein Albumin LDL Cholesterol Direct Vitamin B12 Vancomycin Trough Crossmatch 11/17/21 11/17/21 11/17/21 05:56 11:00 11:55 WBC RBC Hgb 8.3 L Hct 26.9 L MCV MCH MCHC RDW Plt Count Seg Neuts % (Manual) Lymphocytes % (Manual) Seg Neutrophils # Man Lymphocytes # (Manual) Monocytes # (Manual) PT INR D-Dimer ABG pH ABG pO2 ABG HCO3 ABG O2 Saturation ABG Base Excess ABG Hemoglobin Oxyhemoglobin Sodium 151 H Potassium Chloride 113.6 H Carbon Dioxide BUN 85 H Creatinine Glucose 132 H POC Glucose 121 H Lactic Acid Calcium 7.8 L Phosphorus Magnesium AST ALT Alkaline Phosphatase Lactate Dehydrogenase Troponin T C-Reactive Protein NT-Pro-B Natriuret Pep Total Protein 5.1 L Albumin 2.2 L LDL Cholesterol Direct Vitamin B12 Vancomycin Trough Crossmatch 11/17/21 11/17/21 11/18/21 18:04 18:55 00:26 WBC RBC Hgb 7.5 L 7.1 L Hct 24.8 L 23.6 L MCV MCH MCHC RDW Plt Count Seg Neuts % (Manual) Lymphocytes % (Manual) Seg Neutrophils # Man Lymphocytes # (Manual) Monocytes # (Manual) PT INR D-Dimer ABG pH ABG pO2 ABG HCO3 ABG O2 Saturation ABG Base Excess ABG Hemoglobin Oxyhemoglobin Sodium Potassium Chloride Carbon Dioxide BUN Creatinine Glucose POC Glucose 144 H Lactic Acid Calcium Phosphorus Magnesium AST ALT Alkaline Phosphatase Lactate Dehydrogenase Troponin T C-Reactive Protein NT-Pro-B Natriuret Pep Total Protein Albumin LDL Cholesterol Direct Vitamin B12 Vancomycin Trough Crossmatch 11/18/21 11/18/21 11/18/21 00:43 05:10 05:10 WBC 12.5 H RBC 2.39 L Hgb 6.1 L Hct 20.2 L MCV MCH 25 L MCHC RDW 23.2 H Plt Count Seg Neuts % (Manual) Lymphocytes % (Manual) Seg Neutrophils # Man Lymphocytes # (Manual) Monocytes # (Manual) PT INR D-Dimer ABG pH ABG pO2 ABG HCO3 ABG O2 Saturation ABG Base Excess ABG Hemoglobin Oxyhemoglobin Sodium 131 L D Potassium 2.9 L* D Chloride 97.8 L Carbon Dioxide BUN 58 H Creatinine Glucose 665 H* POC Glucose 139 H Lactic Acid Calcium 7.0 L Phosphorus 2.20 L D Magnesium 1.50 L AST ALT Alkaline Phosphatase Lactate Dehydrogenase Troponin T C-Reactive Protein NT-Pro-B Natriuret Pep Total Protein Albumin LDL Cholesterol Direct Vitamin B12 Vancomycin Trough Crossmatch 11/18/21 11/18/21 11/18/21 05:23 07:10 10:45 WBC RBC Hgb Hct MCV MCH MCHC RDW Plt Count Seg Neuts % (Manual) Lymphocytes % (Manual) Seg Neutrophils # Man Lymphocytes # (Manual) Monocytes # (Manual) PT INR D-Dimer ABG pH ABG pO2 ABG HCO3 ABG O2 Saturation ABG Base Excess ABG Hemoglobin Oxyhemoglobin Sodium 148 H D Potassium 3.1 L Chloride 111.9 H Carbon Dioxide BUN 63 H Creatinine Glucose 141 H POC Glucose 124 H Lactic Acid Calcium 8.1 L D Phosphorus Magnesium AST ALT Alkaline Phosphatase Lactate Dehydrogenase Troponin T C-Reactive Protein NT-Pro-B Natriuret Pep Total Protein Albumin LDL Cholesterol Direct Vitamin B12 Vancomycin Trough Crossmatch See Detail 11/18/21 11/19/21 11/19/21 11:57 00:19 04:55 WBC RBC 3.35 L Hgb 9.0 L 8.9 L Hct 28.3 L D 28.1 L MCV MCH 27 L MCHC RDW 20.3 H Plt Count Seg Neuts % (Manual) Lymphocytes % (Manual) Seg Neutrophils # Man Lymphocytes # (Manual) Monocytes # (Manual) PT INR D-Dimer ABG pH ABG pO2 ABG HCO3 ABG O2 Saturation ABG Base Excess ABG Hemoglobin Oxyhemoglobin Sodium Potassium Chloride Carbon Dioxide BUN Creatinine Glucose POC Glucose 119 H Lactic Acid Calcium Phosphorus Magnesium AST ALT Alkaline Phosphatase Lactate Dehydrogenase Troponin T C-Reactive Protein NT-Pro-B Natriuret Pep Total Protein Albumin LDL Cholesterol Direct Vitamin B12 Vancomycin Trough Crossmatch 11/19/21 11/19/21 11/20/21 04:55 05:42 00:55 WBC RBC Hgb 9.0 L Hct 28.6 L MCV MCH MCHC RDW Plt Count Seg Neuts % (Manual) Lymphocytes % (Manual) Seg Neutrophils # Man Lymphocytes # (Manual) Monocytes # (Manual) PT INR D-Dimer ABG pH ABG pO2 ABG HCO3 ABG O2 Saturation ABG Base Excess ABG Hemoglobin Oxyhemoglobin Sodium Potassium 3.5 L Chloride 108.6 H Carbon Dioxide BUN 47 H Creatinine Glucose 207 H POC Glucose 63 L Lactic Acid Calcium 7.1 L Phosphorus Magnesium AST ALT Alkaline Phosphatase Lactate Dehydrogenase Troponin T C-Reactive Protein NT-Pro-B Natriuret Pep Total Protein Albumin LDL Cholesterol Direct Vitamin B12 Vancomycin Trough Crossmatch 11/20/21 11/20/21 11/20/21 05:40 05:40 Unknown WBC RBC 3.40 L Hgb 9.1 L Hct 28.8 L MCV MCH 27 L MCHC RDW 20.7 H Plt Count Seg Neuts % (Manual) Lymphocytes % (Manual) Seg Neutrophils # Man Lymphocytes # (Manual) Monocytes # (Manual) PT INR D-Dimer ABG pH ABG pO2 ABG HCO3 ABG O2 Saturation ABG Base Excess -2.7 L ABG Hemoglobin 9.5 L Oxyhemoglobin 94.3 L Sodium Potassium 3.5 L Chloride 108.9 H Carbon Dioxide BUN 37 H Creatinine Glucose 117 H POC Glucose Lactic Acid Calcium 7.5 L Phosphorus Magnesium AST ALT Alkaline Phosphatase Lactate Dehydrogenase Troponin T C-Reactive Protein NT-Pro-B Natriuret Pep Total Protein Albumin LDL Cholesterol Direct Vitamin B12 Vancomycin Trough Crossmatch 11/21/21 11/21/21 11/21/21 04:30 04:30 16:00 WBC RBC 3.25 L Hgb 8.6 L Hct 28.1 L MCV MCH 26 L MCHC RDW 20.7 H Plt Count Seg Neuts % (Manual) Lymphocytes % (Manual) Seg Neutrophils # Man Lymphocytes # (Manual) Monocytes # (Manual) PT INR D-Dimer ABG pH ABG pO2 114.2 H ABG HCO3 ABG O2 Saturation ABG Base Excess ABG Hemoglobin 9.1 L Oxyhemoglobin Sodium 134 L Potassium Chloride Carbon Dioxide 20 L BUN 34 H Creatinine Glucose POC Glucose Lactic Acid Calcium 7.1 L Phosphorus Magnesium AST ALT Alkaline Phosphatase Lactate Dehydrogenase Troponin T C-Reactive Protein NT-Pro-B Natriuret Pep Total Protein Albumin LDL Cholesterol Direct Vitamin B12 Vancomycin Trough Crossmatch 11/22/21 11/22/21 11/22/21 07:07 07:07 23:54 WBC RBC 3.30 L Hgb 9.0 L Hct 28.5 L MCV MCH 27 L MCHC RDW 21.0 H Plt Count Seg Neuts % (Manual) Lymphocytes % (Manual) Seg Neutrophils # Man Lymphocytes # (Manual) Monocytes # (Manual) PT INR D-Dimer ABG pH ABG pO2 ABG HCO3 ABG O2 Saturation ABG Base Excess ABG Hemoglobin Oxyhemoglobin Sodium Potassium Chloride Carbon Dioxide BUN 32 H Creatinine Glucose 106 H POC Glucose 110 H Lactic Acid Calcium 7.5 L Phosphorus Magnesium AST ALT Alkaline Phosphatase Lactate Dehydrogenase Troponin T C-Reactive Protein NT-Pro-B Natriuret Pep Total Protein Albumin LDL Cholesterol Direct Vitamin B12 Vancomycin Trough Crossmatch 02/04/0811/23/21 11/23/21 04:38 04:38 06:01 WBC RBC 3.23 L Hgb 8.8 L Hct 28.0 L MCV MCH 27 L MCHC RDW 21.3 H Plt Count Seg Neuts % (Manual) Lymphocytes % (Manual) Seg Neutrophils # Man Lymphocytes # (Manual) Monocytes # (Manual) PT INR D-Dimer ABG pH ABG pO2 ABG HCO3 ABG O2 Saturation ABG Base Excess ABG Hemoglobin Oxyhemoglobin Sodium 136 L Potassium Chloride Carbon Dioxide 20 L BUN 32 H Creatinine Glucose 109 H POC Glucose 115 H Lactic Acid Calcium 7.7 L Phosphorus Magnesium AST ALT Alkaline Phosphatase Lactate Dehydrogenase Troponin T C-Reactive Protein NT-Pro-B Natriuret Pep Total Protein Albumin LDL Cholesterol Direct Vitamin B12 Vancomycin Trough Crossmatch 11/23/21 11/24/21 11/24/21 11:40 00:03 04:13 WBC RBC 3.18 L Hgb 8.5 L Hct 27.5 L MCV MCH 27 L MCHC RDW 21.6 H Plt Count Seg Neuts % (Manual) Lymphocytes % (Manual) Seg Neutrophils # Man Lymphocytes # (Manual) Monocytes # (Manual) PT INR D-Dimer ABG pH ABG pO2 ABG HCO3 ABG O2 Saturation ABG Base Excess ABG Hemoglobin Oxyhemoglobin Sodium Potassium Chloride Carbon Dioxide BUN Creatinine Glucose POC Glucose 117 H 111 H Lactic Acid Calcium Phosphorus Magnesium AST ALT Alkaline Phosphatase Lactate Dehydrogenase Troponin T C-Reactive Protein NT-Pro-B Natriuret Pep Total Protein Albumin LDL Cholesterol Direct Vitamin B12 Vancomycin Trough Crossmatch 11/24/21 11/24/21 11/24/21 04:13 05:30 11:10 WBC RBC Hgb Hct MCV MCH MCHC RDW Plt Count Seg Neuts % (Manual) Lymphocytes % (Manual) Seg Neutrophils # Man Lymphocytes # (Manual) Monocytes # (Manual) PT INR D-Dimer ABG pH ABG pO2 ABG HCO3 ABG O2 Saturation ABG Base Excess ABG Hemoglobin Oxyhemoglobin Sodium Potassium Chloride Carbon Dioxide BUN 31 H Creatinine Glucose 101 H POC Glucose 115 H 107 H Lactic Acid Calcium 7.7 L Phosphorus Magnesium AST ALT Alkaline Phosphatase Lactate Dehydrogenase Troponin T C-Reactive Protein NT-Pro-B Natriuret Pep Total Protein Albumin LDL Cholesterol Direct Vitamin B12 Vancomycin Trough Crossmatch 11/24/21 11/24/21 11/25/21 16:34 17:57 05:12 WBC RBC 3.11 L Hgb 8.2 L Hct 26.6 L MCV MCH 26 L MCHC RDW 21.3 H Plt Count Seg Neuts % (Manual) Lymphocytes % (Manual) Seg Neutrophils # Man Lymphocytes # (Manual) Monocytes # (Manual) PT INR D-Dimer ABG pH ABG pO2 ABG HCO3 ABG O2 Saturation ABG Base Excess ABG Hemoglobin Oxyhemoglobin Sodium Potassium Chloride Carbon Dioxide BUN Creatinine Glucose POC Glucose 115 H 110 H Lactic Acid Calcium Phosphorus Magnesium AST ALT Alkaline Phosphatase Lactate Dehydrogenase Troponin T C-Reactive Protein NT-Pro-B Natriuret Pep Total Protein Albumin LDL Cholesterol Direct Vitamin B12 Vancomycin Trough Crossmatch 11/25/21 11/25/21 11/26/21 05:12 11:20 05:00 WBC RBC 3.30 L Hgb 8.8 L Hct 28.2 L MCV MCH 27 L MCHC RDW 20.7 H Plt Count Seg Neuts % (Manual) Lymphocytes % (Manual) Seg Neutrophils # Man Lymphocytes # (Manual) Monocytes # (Manual) PT INR D-Dimer ABG pH ABG pO2 ABG HCO3 ABG O2 Saturation ABG Base Excess ABG Hemoglobin Oxyhemoglobin Sodium Potassium Chloride Carbon Dioxide BUN 32 H Creatinine Glucose 118 H POC Glucose 118 H Lactic Acid Calcium 8.2 L Phosphorus Magnesium AST ALT Alkaline Phosphatase Lactate Dehydrogenase Troponin T C-Reactive Protein NT-Pro-B Natriuret Pep Total Protein Albumin LDL Cholesterol Direct Vitamin B12 Vancomycin Trough Crossmatch 11/26/21 11/26/21 11/26/21 05:00 05:00 05:44 WBC RBC Hgb Hct MCV MCH MCHC RDW Plt Count Seg Neuts % (Manual) Lymphocytes % (Manual) Seg Neutrophils # Man Lymphocytes # (Manual) Monocytes # (Manual) PT 16.9 H INR 1.24 H D-Dimer ABG pH ABG pO2 ABG HCO3 ABG O2 Saturation ABG Base Excess ABG Hemoglobin Oxyhemoglobin Sodium Potassium Chloride Carbon Dioxide BUN 31 H Creatinine Glucose 104 H POC Glucose 110 H Lactic Acid Calcium 7.9 L Phosphorus Magnesium AST ALT Alkaline Phosphatase Lactate Dehydrogenase Troponin T C-Reactive Protein NT-Pro-B Natriuret Pep Total Protein Albumin LDL Cholesterol Direct Vitamin B12 Vancomycin Trough Crossmatch 11/26/21 11/27/21 11/27/21 23:55 07:40 07:40 WBC RBC 3.18 L Hgb 8.5 L Hct 27.0 L MCV MCH 27 L MCHC RDW 21.2 H Plt Count Seg Neuts % (Manual) Lymphocytes % (Manual) Seg Neutrophils # Man Lymphocytes # (Manual) Monocytes # (Manual) PT INR D-Dimer ABG pH ABG pO2 ABG HCO3 ABG O2 Saturation ABG Base Excess ABG Hemoglobin Oxyhemoglobin Sodium Potassium Chloride Carbon Dioxide BUN 27 H Creatinine Glucose 112 H POC Glucose 63 L Lactic Acid Calcium 7.6 L Phosphorus Magnesium AST ALT Alkaline Phosphatase Lactate Dehydrogenase Troponin T C-Reactive Protein NT-Pro-B Natriuret Pep Total Protein Albumin LDL Cholesterol Direct Vitamin B12 Vancomycin Trough Crossmatch 11/27/21 11/27/21 11/27/21 12:04 13:40 13:40 WBC RBC 3.31 L Hgb 8.7 L Hct 28.0 L MCV MCH 26 L MCHC RDW 20.7 H Plt Count Seg Neuts % (Manual) Lymphocytes % (Manual) Seg Neutrophils # Man Lymphocytes # (Manual) Monocytes # (Manual) PT INR D-Dimer ABG pH ABG pO2 ABG HCO3 ABG O2 Saturation ABG Base Excess ABG Hemoglobin Oxyhemoglobin Sodium 136 L Potassium Chloride Carbon Dioxide BUN 25 H Creatinine Glucose 127 H POC Glucose 109 H Lactic Acid Calcium 7.6 L Phosphorus Magnesium 1.40 L AST ALT Alkaline Phosphatase Lactate Dehydrogenase Troponin T C-Reactive Protein NT-Pro-B Natriuret Pep Total Protein Albumin LDL Cholesterol Direct Vitamin B12 Vancomycin Trough Crossmatch 11/27/21 11/27/21 11/28/21 17:44 23:33 12:20 WBC RBC Hgb Hct MCV MCH MCHC RDW Plt Count Seg Neuts % (Manual) Lymphocytes % (Manual) Seg Neutrophils # Man Lymphocytes # (Manual) Monocytes # (Manual) PT INR D-Dimer ABG pH ABG pO2 ABG HCO3 ABG O2 Saturation ABG Base Excess ABG Hemoglobin Oxyhemoglobin Sodium Potassium Chloride Carbon Dioxide BUN Creatinine Glucose POC Glucose 107 H 108 H 114 H Lactic Acid Calcium Phosphorus Magnesium AST ALT Alkaline Phosphatase Lactate Dehydrogenase Troponin T C-Reactive Protein NT-Pro-B Natriuret Pep Total Protein Albumin LDL Cholesterol Direct Vitamin B12 Vancomycin Trough Crossmatch 11/29/21 11/29/21 11/29/21 00:09 03:20 03:20 WBC RBC 3.05 L Hgb 8.2 L Hct 25.8 L MCV MCH 27 L MCHC RDW 20.9 H Plt Count Seg Neuts % (Manual) Lymphocytes % (Manual) Seg Neutrophils # Man Lymphocytes # (Manual) Monocytes # (Manual) PT INR D-Dimer ABG pH ABG pO2 ABG HCO3 ABG O2 Saturation ABG Base Excess ABG Hemoglobin Oxyhemoglobin Sodium 133 L Potassium Chloride Carbon Dioxide BUN 24 H Creatinine Glucose 137 H POC Glucose 134 H Lactic Acid Calcium 7.4 L Phosphorus Magnesium AST ALT Alkaline Phosphatase Lactate Dehydrogenase Troponin T C-Reactive Protein NT-Pro-B Natriuret Pep Total Protein Albumin LDL Cholesterol Direct Vitamin B12 Vancomycin Trough Crossmatch 11/29/21 11/29/21 11/29/21 05:38 11:39 17:11 WBC RBC Hgb Hct MCV MCH MCHC RDW Plt Count Seg Neuts % (Manual) Lymphocytes % (Manual) Seg Neutrophils # Man Lymphocytes # (Manual) Monocytes # (Manual) PT INR D-Dimer ABG pH ABG pO2 ABG HCO3 ABG O2 Saturation ABG Base Excess ABG Hemoglobin Oxyhemoglobin Sodium Potassium Chloride Carbon Dioxide BUN Creatinine Glucose POC Glucose 117 H 143 H 124 H Lactic Acid Calcium Phosphorus Magnesium AST ALT Alkaline Phosphatase Lactate Dehydrogenase Troponin T C-Reactive Protein NT-Pro-B Natriuret Pep Total Protein Albumin LDL Cholesterol Direct Vitamin B12 Vancomycin Trough Crossmatch 11/29/21 11/30/21 11/30/21 20:15 05:40 05:40 WBC 12.6 H RBC 3.41 L Hgb 9.1 L Hct 28.9 L MCV MCH 27 L MCHC RDW 20.4 H Plt Count Seg Neuts % (Manual) Lymphocytes % (Manual) Seg Neutrophils # Man Lymphocytes # (Manual) Monocytes # (Manual) PT INR D-Dimer ABG pH ABG pO2 ABG HCO3 ABG O2 Saturation ABG Base Excess ABG Hemoglobin Oxyhemoglobin Sodium Potassium Chloride Carbon Dioxide BUN 24 H Creatinine Glucose 131 H POC Glucose Lactic Acid Calcium 7.6 L Phosphorus Magnesium AST ALT Alkaline Phosphatase Lactate Dehydrogenase Troponin T 0.045 H C-Reactive Protein NT-Pro-B Natriuret Pep Total Protein Albumin LDL Cholesterol Direct 25 L Vitamin B12 Vancomycin Trough Crossmatch 11/30/21 11/30/21 12/01/21 11:29 16:51 05:00 WBC RBC 2.97 L Hgb 8.0 L Hct 25.0 L MCV MCH 27 L MCHC RDW 20.8 H Plt Count Seg Neuts % (Manual) Lymphocytes % (Manual) Seg Neutrophils # Man Lymphocytes # (Manual) Monocytes # (Manual) PT INR D-Dimer ABG pH ABG pO2 ABG HCO3 ABG O2 Saturation ABG Base Excess ABG Hemoglobin Oxyhemoglobin Sodium Potassium Chloride Carbon Dioxide BUN Creatinine Glucose POC Glucose 123 H 114 H Lactic Acid Calcium Phosphorus Magnesium AST ALT Alkaline Phosphatase Lactate Dehydrogenase Troponin T C-Reactive Protein NT-Pro-B Natriuret Pep Total Protein Albumin LDL Cholesterol Direct Vitamin B12 Vancomycin Trough Crossmatch 12/01/21 12/01/21 12/01/21 05:00 05:25 11:54 WBC RBC Hgb Hct MCV MCH MCHC RDW Plt Count Seg Neuts % (Manual) Lymphocytes % (Manual) Seg Neutrophils # Man Lymphocytes # (Manual) Monocytes # (Manual) PT INR D-Dimer ABG pH ABG pO2 ABG HCO3 ABG O2 Saturation ABG Base Excess ABG Hemoglobin Oxyhemoglobin Sodium 136 L Potassium Chloride Carbon Dioxide BUN 24 H Creatinine Glucose 117 H POC Glucose 108 H 107 H Lactic Acid Calcium 7.5 L Phosphorus Magnesium 1.60 L AST ALT Alkaline Phosphatase Lactate Dehydrogenase Troponin T C-Reactive Protein NT-Pro-B Natriuret Pep Total Protein Albumin LDL Cholesterol Direct Vitamin B12 Vancomycin Trough Crossmatch 12/01/21 12/02/21 12/02/21 17:40 00:07 04:20 WBC RBC 2.92 L Hgb 7.7 L Hct 24.3 L MCV MCH 26 L MCHC RDW 20.5 H Plt Count Seg Neuts % (Manual) Lymphocytes % (Manual) Seg Neutrophils # Man Lymphocytes # (Manual) Monocytes # (Manual) PT INR D-Dimer ABG pH ABG pO2 ABG HCO3 ABG O2 Saturation ABG Base Excess ABG Hemoglobin Oxyhemoglobin Sodium Potassium Chloride Carbon Dioxide BUN Creatinine Glucose POC Glucose 123 H 110 H Lactic Acid Calcium Phosphorus Magnesium AST ALT Alkaline Phosphatase Lactate Dehydrogenase Troponin T C-Reactive Protein NT-Pro-B Natriuret Pep Total Protein Albumin LDL Cholesterol Direct Vitamin B12 Vancomycin Trough Crossmatch 12/02/21 12/02/21 12/02/21 04:20 11:17 18:20 WBC RBC Hgb Hct MCV MCH MCHC RDW Plt Count Seg Neuts % (Manual) Lymphocytes % (Manual) Seg Neutrophils # Man Lymphocytes # (Manual) Monocytes # (Manual) PT INR D-Dimer ABG pH ABG pO2 ABG HCO3 ABG O2 Saturation ABG Base Excess ABG Hemoglobin Oxyhemoglobin Sodium 135 L Potassium Chloride Carbon Dioxide BUN 26 H Creatinine Glucose 121 H POC Glucose 117 H 113 H Lactic Acid Calcium 7.4 L Phosphorus Magnesium AST ALT Alkaline Phosphatase Lactate Dehydrogenase Troponin T C-Reactive Protein NT-Pro-B Natriuret Pep Total Protein Albumin LDL Cholesterol Direct Vitamin B12 Vancomycin Trough Crossmatch 12/03/21 12/03/21 12/03/21 00:12 04:00 04:00 WBC RBC 2.99 L Hgb 7.8 L Hct 24.6 L MCV MCH 26 L MCHC RDW 20.2 H Plt Count Seg Neuts % (Manual) Lymphocytes % (Manual) Seg Neutrophils # Man Lymphocytes # (Manual) Monocytes # (Manual) PT INR D-Dimer ABG pH ABG pO2 ABG HCO3 ABG O2 Saturation ABG Base Excess ABG Hemoglobin Oxyhemoglobin Sodium 136 L Potassium Chloride Carbon Dioxide BUN 27 H Creatinine Glucose 133 H POC Glucose 121 H Lactic Acid Calcium 7.5 L Phosphorus Magnesium AST ALT Alkaline Phosphatase Lactate Dehydrogenase Troponin T C-Reactive Protein NT-Pro-B Natriuret Pep Total Protein Albumin LDL Cholesterol Direct Vitamin B12 Vancomycin Trough Crossmatch 12/03/21 12/03/21 12/03/21 06:30 11:13 16:00 WBC RBC Hgb Hct MCV MCH MCHC RDW Plt Count Seg Neuts % (Manual) Lymphocytes % (Manual) Seg Neutrophils # Man Lymphocytes # (Manual) Monocytes # (Manual) PT INR D-Dimer ABG pH ABG pO2 ABG HCO3 ABG O2 Saturation ABG Base Excess ABG Hemoglobin Oxyhemoglobin Sodium Potassium Chloride Carbon Dioxide BUN Creatinine Glucose POC Glucose 129 H 125 H 125 H Lactic Acid Calcium Phosphorus Magnesium AST ALT Alkaline Phosphatase Lactate Dehydrogenase Troponin T C-Reactive Protein NT-Pro-B Natriuret Pep Total Protein Albumin LDL Cholesterol Direct Vitamin B12 Vancomycin Trough Crossmatch 12/03/21 12/04/21 12/04/21 23:32 04:00 05:36 WBC RBC Hgb Hct MCV MCH MCHC RDW Plt Count Seg Neuts % (Manual) Lymphocytes % (Manual) Seg Neutrophils # Man Lymphocytes # (Manual) Monocytes # (Manual) PT INR D-Dimer ABG pH ABG pO2 ABG HCO3 ABG O2 Saturation ABG Base Excess ABG Hemoglobin Oxyhemoglobin Sodium Potassium 3.5 L Chloride Carbon Dioxide BUN 26 H Creatinine 0.5 L Glucose 151 H POC Glucose 133 H 142 H Lactic Acid Calcium 8.3 L Phosphorus Magnesium AST ALT Alkaline Phosphatase Lactate Dehydrogenase Troponin T C-Reactive Protein NT-Pro-B Natriuret Pep Total Protein Albumin LDL Cholesterol Direct Vitamin B12 Vancomycin Trough Crossmatch 12/04/21 12/04/21 12/05/21 11:24 15:58 04:36 WBC RBC Hgb Hct MCV MCH MCHC RDW Plt Count Seg Neuts % (Manual) Lymphocytes % (Manual) Seg Neutrophils # Man Lymphocytes # (Manual) Monocytes # (Manual) PT INR D-Dimer ABG pH ABG pO2 ABG HCO3 ABG O2 Saturation ABG Base Excess ABG Hemoglobin Oxyhemoglobin Sodium Potassium Chloride Carbon Dioxide BUN 21 H Creatinine 0.5 L Glucose 119 H POC Glucose 130 H 111 H Lactic Acid Calcium 8.3 L Phosphorus Magnesium AST ALT Alkaline Phosphatase Lactate Dehydrogenase Troponin T C-Reactive Protein NT-Pro-B Natriuret Pep Total Protein Albumin LDL Cholesterol Direct Vitamin B12 Vancomycin Trough Crossmatch 12/05/21 12/05/21 12/05/21 05:15 10:40 11:12 WBC RBC 2.98 L Hgb 8.1 L Hct 24.6 L MCV MCH 27 L MCHC RDW 20.8 H Plt Count Seg Neuts % (Manual) Lymphocytes % (Manual) Seg Neutrophils # Man Lymphocytes # (Manual) Monocytes # (Manual) PT INR D-Dimer ABG pH ABG pO2 ABG HCO3 ABG O2 Saturation ABG Base Excess ABG Hemoglobin Oxyhemoglobin Sodium Potassium Chloride Carbon Dioxide BUN Creatinine Glucose POC Glucose 107 H 110 H Lactic Acid Calcium Phosphorus Magnesium AST ALT Alkaline Phosphatase Lactate Dehydrogenase Troponin T C-Reactive Protein NT-Pro-B Natriuret Pep Total Protein Albumin LDL Cholesterol Direct Vitamin B12 Vancomycin Trough Crossmatch 12/05/21 12/06/21 12/06/21 23:39 04:25 04:25 WBC RBC 2.95 L Hgb 7.9 L Hct 24.7 L MCV MCH 27 L MCHC RDW 20.9 H Plt Count Seg Neuts % (Manual) Lymphocytes % (Manual) Seg Neutrophils # Man Lymphocytes # (Manual) Monocytes # (Manual) PT INR D-Dimer ABG pH ABG pO2 ABG HCO3 ABG O2 Saturation ABG Base Excess ABG Hemoglobin Oxyhemoglobin Sodium Potassium Chloride Carbon Dioxide BUN 22 H Creatinine 0.5 L Glucose 136 H POC Glucose 118 H Lactic Acid Calcium 8.2 L Phosphorus Magnesium AST ALT Alkaline Phosphatase Lactate Dehydrogenase Troponin T C-Reactive Protein NT-Pro-B Natriuret Pep Total Protein Albumin LDL Cholesterol Direct Vitamin B12 Vancomycin Trough Crossmatch 12/06/21 12/06/21 12/07/21 05:28 11:27 04:00 WBC RBC Hgb 7.2 L Hct 21.8 L MCV MCH MCHC RDW Plt Count Seg Neuts % (Manual) Lymphocytes % (Manual) Seg Neutrophils # Man Lymphocytes # (Manual) Monocytes # (Manual) PT INR D-Dimer ABG pH ABG pO2 ABG HCO3 ABG O2 Saturation ABG Base Excess ABG Hemoglobin Oxyhemoglobin Sodium Potassium Chloride Carbon Dioxide BUN Creatinine Glucose POC Glucose 142 H 126 H Lactic Acid Calcium Phosphorus Magnesium AST ALT Alkaline Phosphatase Lactate Dehydrogenase Troponin T C-Reactive Protein NT-Pro-B Natriuret Pep Total Protein Albumin LDL Cholesterol Direct Vitamin B12 Vancomycin Trough Crossmatch 12/07/21 12/07/21 12/07/21 04:00 05:30 11:12 WBC RBC Hgb Hct MCV MCH MCHC RDW Plt Count Seg Neuts % (Manual) Lymphocytes % (Manual) Seg Neutrophils # Man Lymphocytes # (Manual) Monocytes # (Manual) PT INR D-Dimer ABG pH ABG pO2 ABG HCO3 ABG O2 Saturation ABG Base Excess ABG Hemoglobin Oxyhemoglobin Sodium Potassium Chloride Carbon Dioxide BUN 22 H Creatinine Glucose 119 H POC Glucose 121 H 124 H Lactic Acid Calcium 8.0 L Phosphorus Magnesium AST ALT Alkaline Phosphatase Lactate Dehydrogenase Troponin T C-Reactive Protein NT-Pro-B Natriuret Pep Total Protein Albumin LDL Cholesterol Direct Vitamin B12 Vancomycin Trough Crossmatch 12/08/21 12/08/21 12/08/21 04:00 04:00 05:39 WBC RBC 2.81 L Hgb 7.7 L Hct 23.5 L MCV MCH MCHC RDW 21.2 H Plt Count Seg Neuts % (Manual) Lymphocytes % (Manual) Seg Neutrophils # Man Lymphocytes # (Manual) Monocytes # (Manual) PT INR D-Dimer ABG pH ABG pO2 ABG HCO3 ABG O2 Saturation ABG Base Excess ABG Hemoglobin Oxyhemoglobin Sodium 135 L Potassium Chloride Carbon Dioxide BUN 23 H Creatinine Glucose 109 H POC Glucose 112 H Lactic Acid Calcium Phosphorus Magnesium AST ALT Alkaline Phosphatase Lactate Dehydrogenase Troponin T C-Reactive Protein NT-Pro-B Natriuret Pep Total Protein Albumin LDL Cholesterol Direct Vitamin B12 Vancomycin Trough Crossmatch 12/08/21 12/09/21 12/09/21 11:03 04:20 04:20 WBC RBC 2.67 L Hgb 7.6 L Hct 22.1 L MCV MCH MCHC RDW 20.8 H Plt Count Seg Neuts % (Manual) Lymphocytes % (Manual) Seg Neutrophils # Man Lymphocytes # (Manual) Monocytes # (Manual) PT INR D-Dimer ABG pH ABG pO2 ABG HCO3 ABG O2 Saturation ABG Base Excess ABG Hemoglobin Oxyhemoglobin Sodium 135 L Potassium Chloride 97.8 L Carbon Dioxide BUN 26 H Creatinine Glucose 119 H POC Glucose 108 H Lactic Acid Calcium 7.7 L Phosphorus Magnesium AST ALT Alkaline Phosphatase Lactate Dehydrogenase Troponin T C-Reactive Protein NT-Pro-B Natriuret Pep Total Protein Albumin LDL Cholesterol Direct Vitamin B12 Vancomycin Trough Crossmatch 12/09/21 12/10/21 12/10/21 11:26 04:33 11:12 WBC RBC Hgb Hct MCV MCH MCHC RDW Plt Count Seg Neuts % (Manual) Lymphocytes % (Manual) Seg Neutrophils # Man Lymphocytes # (Manual) Monocytes # (Manual) PT INR D-Dimer ABG pH ABG pO2 ABG HCO3 ABG O2 Saturation ABG Base Excess ABG Hemoglobin Oxyhemoglobin Sodium 136 L Potassium Chloride Carbon Dioxide BUN 27 H Creatinine Glucose 117 H POC Glucose 110 H 117 H Lactic Acid Calcium 8.2 L Phosphorus Magnesium AST ALT Alkaline Phosphatase Lactate Dehydrogenase Troponin T C-Reactive Protein NT-Pro-B Natriuret Pep Total Protein Albumin LDL Cholesterol Direct Vitamin B12 Vancomycin Trough Crossmatch 12/10/21 12/10/21 12/11/21 16:02 23:31 04:35 WBC RBC 2.57 L Hgb 7.0 L Hct 21.4 L MCV MCH 27 L MCHC RDW 21.1 H Plt Count Seg Neuts % (Manual) Lymphocytes % (Manual) Seg Neutrophils # Man Lymphocytes # (Manual) Monocytes # (Manual) PT INR D-Dimer ABG pH ABG pO2 ABG HCO3 ABG O2 Saturation ABG Base Excess ABG Hemoglobin Oxyhemoglobin Sodium Potassium Chloride Carbon Dioxide BUN Creatinine Glucose POC Glucose 137 H 111 H Lactic Acid Calcium Phosphorus Magnesium AST ALT Alkaline Phosphatase Lactate Dehydrogenase Troponin T C-Reactive Protein NT-Pro-B Natriuret Pep Total Protein Albumin LDL Cholesterol Direct Vitamin B12 Vancomycin Trough Crossmatch 12/11/21 12/11/21 12/11/21 04:35 12:46 16:07 WBC RBC Hgb Hct MCV MCH MCHC RDW Plt Count Seg Neuts % (Manual) Lymphocytes % (Manual) Seg Neutrophils # Man Lymphocytes # (Manual) Monocytes # (Manual) PT INR D-Dimer ABG pH ABG pO2 ABG HCO3 ABG O2 Saturation ABG Base Excess ABG Hemoglobin Oxyhemoglobin Sodium 136 L Potassium Chloride Carbon Dioxide BUN 27 H Creatinine Glucose 112 H POC Glucose 115 H 111 H Lactic Acid Calcium 7.6 L Phosphorus Magnesium AST ALT Alkaline Phosphatase Lactate Dehydrogenase Troponin T C-Reactive Protein NT-Pro-B Natriuret Pep Total Protein Albumin LDL Cholesterol Direct Vitamin B12 Vancomycin Trough Crossmatch 12/11/21 12/12/21 12/12/21 23:42 04:30 04:30 WBC RBC 2.60 L Hgb 7.1 L Hct 21.5 L MCV MCH 27 L MCHC RDW 20.3 H Plt Count Seg Neuts % (Manual) Lymphocytes % (Manual) Seg Neutrophils # Man Lymphocytes # (Manual) Monocytes # (Manual) PT INR D-Dimer ABG pH ABG pO2 ABG HCO3 ABG O2 Saturation ABG Base Excess ABG Hemoglobin Oxyhemoglobin Sodium 135 L Potassium Chloride 97.9 L Carbon Dioxide BUN 26 H Creatinine 0.5 L Glucose 138 H POC Glucose 115 H Lactic Acid Calcium 8.2 L Phosphorus Magnesium AST ALT Alkaline Phosphatase Lactate Dehydrogenase Troponin T C-Reactive Protein NT-Pro-B Natriuret Pep Total Protein Albumin LDL Cholesterol Direct Vitamin B12 Vancomycin Trough Crossmatch 12/12/21 12/12/21 12/12/21 04:30 05:10 11:51 WBC RBC Hgb Hct MCV MCH MCHC RDW Plt Count Seg Neuts % (Manual) Lymphocytes % (Manual) Seg Neutrophils # Man Lymphocytes # (Manual) Monocytes # (Manual) PT INR D-Dimer ABG pH ABG pO2 ABG HCO3 ABG O2 Saturation ABG Base Excess ABG Hemoglobin Oxyhemoglobin Sodium Potassium Chloride Carbon Dioxide BUN Creatinine Glucose POC Glucose 119 H 119 H Lactic Acid Calcium Phosphorus Magnesium AST ALT Alkaline Phosphatase Lactate Dehydrogenase Troponin T C-Reactive Protein NT-Pro-B Natriuret Pep Total Protein Albumin LDL Cholesterol Direct Vitamin B12 Vancomycin Trough Crossmatch See Detail 12/13/21 12/13/21 12/13/21 00:52 04:00 04:00 WBC RBC 2.73 L Hgb 7.4 L Hct 22.8 L MCV MCH 27 L MCHC RDW 20.5 H Plt Count Seg Neuts % (Manual) Lymphocytes % (Manual) Seg Neutrophils # Man Lymphocytes # (Manual) Monocytes # (Manual) PT INR D-Dimer ABG pH ABG pO2 ABG HCO3 ABG O2 Saturation ABG Base Excess ABG Hemoglobin Oxyhemoglobin Sodium 134 L Potassium Chloride 96.7 L Carbon Dioxide BUN 23 H Creatinine 0.5 L Glucose 131 H POC Glucose 131 H Lactic Acid Calcium 8.1 L Phosphorus Magnesium AST ALT Alkaline Phosphatase Lactate Dehydrogenase Troponin T C-Reactive Protein NT-Pro-B Natriuret Pep Total Protein Albumin LDL Cholesterol Direct Vitamin B12 Vancomycin Trough Crossmatch 12/13/21 12/13/21 12/13/21 05:23 12:11 17:18 WBC RBC Hgb Hct MCV MCH MCHC RDW Plt Count Seg Neuts % (Manual) Lymphocytes % (Manual) Seg Neutrophils # Man Lymphocytes # (Manual) Monocytes # (Manual) PT INR D-Dimer ABG pH ABG pO2 ABG HCO3 ABG O2 Saturation ABG Base Excess ABG Hemoglobin Oxyhemoglobin Sodium Potassium Chloride Carbon Dioxide BUN Creatinine Glucose POC Glucose 121 H 143 H 148 H Lactic Acid Calcium Phosphorus Magnesium AST ALT Alkaline Phosphatase Lactate Dehydrogenase Troponin T C-Reactive Protein NT-Pro-B Natriuret Pep Total Protein Albumin LDL Cholesterol Direct Vitamin B12 Vancomycin Trough Crossmatch 12/14/21 12/14/21 12/14/21 00:54 04:20 04:20 WBC RBC 2.39 L Hgb 6.5 L Hct 20.3 L MCV MCH 27 L MCHC RDW 20.3 H Plt Count Seg Neuts % (Manual) Lymphocytes % (Manual) Seg Neutrophils # Man Lymphocytes # (Manual) Monocytes # (Manual) PT INR D-Dimer ABG pH ABG pO2 ABG HCO3 ABG O2 Saturation ABG Base Excess ABG Hemoglobin Oxyhemoglobin Sodium 130 L Potassium Chloride 93.5 L Carbon Dioxide BUN 25 H Creatinine Glucose 123 H POC Glucose 123 H Lactic Acid Calcium 8.0 L Phosphorus Magnesium AST ALT Alkaline Phosphatase Lactate Dehydrogenase Troponin T C-Reactive Protein NT-Pro-B Natriuret Pep Total Protein Albumin LDL Cholesterol Direct Vitamin B12 Vancomycin Trough Crossmatch 12/14/21 12/14/21 12/14/21 05:06 08:17 10:30 WBC RBC Hgb Hct MCV MCH MCHC RDW Plt Count Seg Neuts % (Manual) Lymphocytes % (Manual) Seg Neutrophils # Man Lymphocytes # (Manual) Monocytes # (Manual) PT INR D-Dimer ABG pH ABG pO2 ABG HCO3 ABG O2 Saturation ABG Base Excess ABG Hemoglobin Oxyhemoglobin Sodium Potassium Chloride Carbon Dioxide BUN Creatinine Glucose POC Glucose 131 H 119 H Lactic Acid Calcium Phosphorus Magnesium AST ALT Alkaline Phosphatase Lactate Dehydrogenase Troponin T C-Reactive Protein NT-Pro-B Natriuret Pep Total Protein Albumin LDL Cholesterol Direct Vitamin B12 Vancomycin Trough Crossmatch See Detail 12/14/21 12/14/21 12/14/21 12:15 16:37 23:27 WBC RBC Hgb Hct MCV MCH MCHC RDW Plt Count Seg Neuts % (Manual) Lymphocytes % (Manual) Seg Neutrophils # Man Lymphocytes # (Manual) Monocytes # (Manual) PT INR D-Dimer ABG pH ABG pO2 ABG HCO3 ABG O2 Saturation ABG Base Excess ABG Hemoglobin Oxyhemoglobin Sodium Potassium Chloride Carbon Dioxide BUN Creatinine Glucose POC Glucose 147 H 141 H 130 H Lactic Acid Calcium Phosphorus Magnesium AST ALT Alkaline Phosphatase Lactate Dehydrogenase Troponin T C-Reactive Protein NT-Pro-B Natriuret Pep Total Protein Albumin LDL Cholesterol Direct Vitamin B12 Vancomycin Trough Crossmatch 12/15/21 12/15/21 12/15/21 05:00 07:00 07:00 WBC 12.3 H RBC 3.27 L Hgb 8.8 L Hct 27.5 L D MCV MCH 27 L MCHC RDW 19.0 H Plt Count Seg Neuts % (Manual) Lymphocytes % (Manual) Seg Neutrophils # Man Lymphocytes # (Manual) Monocytes # (Manual) PT INR D-Dimer ABG pH ABG pO2 ABG HCO3 ABG O2 Saturation ABG Base Excess ABG Hemoglobin Oxyhemoglobin Sodium 134 L Potassium Chloride 95.7 L Carbon Dioxide BUN 28 H Creatinine Glucose 129 H POC Glucose 129 H Lactic Acid Calcium 8.2 L Phosphorus Magnesium AST ALT Alkaline Phosphatase Lactate Dehydrogenase Troponin T C-Reactive Protein NT-Pro-B Natriuret Pep Total Protein Albumin LDL Cholesterol Direct Vitamin B12 Vancomycin Trough Crossmatch 12/15/21 12/15/21 12/15/21 11:18 16:00 23:39 WBC RBC Hgb Hct MCV MCH MCHC RDW Plt Count Seg Neuts % (Manual) Lymphocytes % (Manual) Seg Neutrophils # Man Lymphocytes # (Manual) Monocytes # (Manual) PT INR D-Dimer ABG pH ABG pO2 ABG HCO3 ABG O2 Saturation ABG Base Excess ABG Hemoglobin Oxyhemoglobin Sodium Potassium Chloride Carbon Dioxide BUN Creatinine Glucose POC Glucose 139 H 137 H 146 H Lactic Acid Calcium Phosphorus Magnesium AST ALT Alkaline Phosphatase Lactate Dehydrogenase Troponin T C-Reactive Protein NT-Pro-B Natriuret Pep Total Protein Albumin LDL Cholesterol Direct Vitamin B12 Vancomycin Trough Crossmatch 12/16/21 12/16/21 12/16/21 05:24 10:21 10:21 WBC 15.3 H RBC 3.24 L Hgb 8.9 L Hct 27.7 L MCV MCH MCHC RDW 19.0 H Plt Count Seg Neuts % (Manual) Lymphocytes % (Manual) Seg Neutrophils # Man Lymphocytes # (Manual) Monocytes # (Manual) PT INR D-Dimer ABG pH ABG pO2 ABG HCO3 ABG O2 Saturation ABG Base Excess ABG Hemoglobin Oxyhemoglobin Sodium 131 L Potassium 3.5 L Chloride 92.7 L Carbon Dioxide BUN 36 H Creatinine Glucose 160 H POC Glucose 121 H Lactic Acid Calcium Phosphorus Magnesium 1.60 L AST ALT Alkaline Phosphatase Lactate Dehydrogenase Troponin T C-Reactive Protein NT-Pro-B Natriuret Pep Total Protein Albumin LDL Cholesterol Direct Vitamin B12 Vancomycin Trough Crossmatch 12/16/21 12/16/21 12/16/21 11:21 18:28 20:52 WBC RBC Hgb Hct MCV MCH MCHC RDW Plt Count Seg Neuts % (Manual) Lymphocytes % (Manual) Seg Neutrophils # Man Lymphocytes # (Manual) Monocytes # (Manual) PT INR D-Dimer ABG pH 7.479 H ABG pO2 79.3 L ABG HCO3 27.3 H ABG O2 Saturation ABG Base Excess 3.6 H ABG Hemoglobin 9.1 L Oxyhemoglobin 94.9 L Sodium Potassium Chloride Carbon Dioxide BUN Creatinine Glucose POC Glucose 153 H 132 H Lactic Acid Calcium Phosphorus Magnesium AST ALT Alkaline Phosphatase Lactate Dehydrogenase Troponin T C-Reactive Protein NT-Pro-B Natriuret Pep Total Protein Albumin LDL Cholesterol Direct Vitamin B12 Vancomycin Trough Crossmatch 12/16/21 12/17/21 12/17/21 23:30 04:25 04:25 WBC 12.3 H RBC 2.16 L Hgb 6.0 L Hct 18.1 L* D MCV MCH MCHC RDW 19.4 H Plt Count Seg Neuts % (Manual) Lymphocytes % (Manual) Seg Neutrophils # Man Lymphocytes # (Manual) Monocytes # (Manual) PT INR D-Dimer ABG pH ABG pO2 ABG HCO3 ABG O2 Saturation ABG Base Excess ABG Hemoglobin Oxyhemoglobin Sodium 132 L Potassium 3.2 L Chloride 112.0 H Carbon Dioxide BUN 32 H Creatinine Glucose 122 H POC Glucose 137 H Lactic Acid Calcium 6.8 L D Phosphorus Magnesium AST ALT Alkaline Phosphatase Lactate Dehydrogenase Troponin T C-Reactive Protein NT-Pro-B Natriuret Pep Total Protein Albumin LDL Cholesterol Direct Vitamin B12 Vancomycin Trough Crossmatch 12/17/21 12/17/21 12/17/21 05:30 11:49 14:45 WBC RBC Hgb 9.7 L D Hct MCV MCH MCHC RDW Plt Count Seg Neuts % (Manual) Lymphocytes % (Manual) Seg Neutrophils # Man Lymphocytes # (Manual) Monocytes # (Manual) PT INR D-Dimer ABG pH ABG pO2 ABG HCO3 ABG O2 Saturation ABG Base Excess ABG Hemoglobin Oxyhemoglobin Sodium Potassium Chloride Carbon Dioxide BUN Creatinine Glucose POC Glucose 137 H 143 H Lactic Acid Calcium Phosphorus Magnesium AST ALT Alkaline Phosphatase Lactate Dehydrogenase Troponin T C-Reactive Protein NT-Pro-B Natriuret Pep Total Protein Albumin LDL Cholesterol Direct Vitamin B12 Vancomycin Trough Crossmatch 12/17/21 12/18/21 12/18/21 17:01 05:04 05:04 WBC 13.8 H RBC 3.44 L Hgb 9.9 L Hct 28.8 L MCV MCH MCHC RDW 18.1 H Plt Count Seg Neuts % (Manual) Lymphocytes % (Manual) Seg Neutrophils # Man Lymphocytes # (Manual) Monocytes # (Manual) PT INR D-Dimer ABG pH ABG pO2 ABG HCO3 ABG O2 Saturation ABG Base Excess ABG Hemoglobin Oxyhemoglobin Sodium 132 L Potassium Chloride 97.4 L Carbon Dioxide BUN 38 H Creatinine Glucose 134 H POC Glucose 132 H Lactic Acid Calcium Phosphorus Magnesium AST ALT Alkaline Phosphatase Lactate Dehydrogenase Troponin T C-Reactive Protein NT-Pro-B Natriuret Pep Total Protein Albumin LDL Cholesterol Direct Vitamin B12 Vancomycin Trough Crossmatch 12/18/21 12/18/21 12/18/21 05:28 10:57 16:27 WBC RBC Hgb Hct MCV MCH MCHC RDW Plt Count Seg Neuts % (Manual) Lymphocytes % (Manual) Seg Neutrophils # Man Lymphocytes # (Manual) Monocytes # (Manual) PT INR D-Dimer ABG pH ABG pO2 ABG HCO3 ABG O2 Saturation ABG Base Excess ABG Hemoglobin Oxyhemoglobin Sodium Potassium Chloride Carbon Dioxide BUN Creatinine Glucose POC Glucose 118 H 132 H 130 H Lactic Acid Calcium Phosphorus Magnesium AST ALT Alkaline Phosphatase Lactate Dehydrogenase Troponin T C-Reactive Protein NT-Pro-B Natriuret Pep Total Protein Albumin LDL Cholesterol Direct Vitamin B12 Vancomycin Trough Crossmatch 12/19/21 12/19/21 12/19/21 00:02 04:41 04:41 WBC 16.0 H RBC 3.45 L Hgb 9.7 L Hct 29.1 L MCV MCH MCHC RDW 17.8 H Plt Count Seg Neuts % (Manual) Lymphocytes % (Manual) Seg Neutrophils # Man Lymphocytes # (Manual) Monocytes # (Manual) PT INR D-Dimer ABG pH ABG pO2 ABG HCO3 ABG O2 Saturation ABG Base Excess ABG Hemoglobin Oxyhemoglobin Sodium 133 L Potassium Chloride 97.9 L Carbon Dioxide BUN 36 H Creatinine 0.5 L Glucose 126 H POC Glucose 127 H Lactic Acid Calcium 8.3 L Phosphorus Magnesium AST ALT Alkaline Phosphatase Lactate Dehydrogenase Troponin T C-Reactive Protein NT-Pro-B Natriuret Pep Total Protein Albumin LDL Cholesterol Direct Vitamin B12 Vancomycin Trough Crossmatch 12/19/21 12/19/21 12/19/21 05:26 12:20 16:43 WBC RBC Hgb Hct MCV MCH MCHC RDW Plt Count Seg Neuts % (Manual) Lymphocytes % (Manual) Seg Neutrophils # Man Lymphocytes # (Manual) Monocytes # (Manual) PT INR D-Dimer ABG pH ABG pO2 ABG HCO3 ABG O2 Saturation ABG Base Excess ABG Hemoglobin Oxyhemoglobin Sodium Potassium Chloride Carbon Dioxide BUN Creatinine Glucose POC Glucose 119 H 145 H 126 H Lactic Acid Calcium Phosphorus Magnesium AST ALT Alkaline Phosphatase Lactate Dehydrogenase Troponin T C-Reactive Protein NT-Pro-B Natriuret Pep Total Protein Albumin LDL Cholesterol Direct Vitamin B12 Vancomycin Trough Crossmatch 12/19/21 12/20/21 12/20/21 23:30 04:54 04:54 WBC 12.3 H RBC 3.54 L Hgb 10.0 L Hct 29.5 L MCV MCH MCHC RDW 17.8 H Plt Count Seg Neuts % (Manual) 88.0 H Lymphocytes % (Manual) 6.0 L Seg Neutrophils # Man 10.8 H Lymphocytes # (Manual) 0.7 L Monocytes # (Manual) PT INR D-Dimer ABG pH ABG pO2 ABG HCO3 ABG O2 Saturation ABG Base Excess ABG Hemoglobin Oxyhemoglobin Sodium 131 L Potassium Chloride 96.2 L Carbon Dioxide BUN 36 H Creatinine 0.5 L Glucose 130 H POC Glucose 117 H Lactic Acid Calcium Phosphorus Magnesium AST ALT Alkaline Phosphatase Lactate Dehydrogenase Troponin T C-Reactive Protein NT-Pro-B Natriuret Pep Total Protein Albumin LDL Cholesterol Direct Vitamin B12 Vancomycin Trough Crossmatch 12/20/21 12/20/21 12/20/21 05:20 11:51 17:30 WBC RBC Hgb Hct MCV MCH MCHC RDW Plt Count Seg Neuts % (Manual) Lymphocytes % (Manual) Seg Neutrophils # Man Lymphocytes # (Manual) Monocytes # (Manual) PT INR D-Dimer ABG pH ABG pO2 ABG HCO3 ABG O2 Saturation ABG Base Excess ABG Hemoglobin Oxyhemoglobin Sodium Potassium Chloride Carbon Dioxide BUN Creatinine Glucose POC Glucose 126 H 119 H 127 H Lactic Acid Calcium Phosphorus Magnesium AST ALT Alkaline Phosphatase Lactate Dehydrogenase Troponin T C-Reactive Protein NT-Pro-B Natriuret Pep Total Protein Albumin LDL Cholesterol Direct Vitamin B12 Vancomycin Trough Crossmatch 12/21/21 12/21/21 12/21/21 00:45 04:21 04:21 WBC RBC 3.47 L Hgb 9.4 L Hct 29.2 L MCV MCH 27 L MCHC RDW 18.1 H Plt Count Seg Neuts % (Manual) Lymphocytes % (Manual) Seg Neutrophils # Man Lymphocytes # (Manual) Monocytes # (Manual) PT INR D-Dimer ABG pH ABG pO2 ABG HCO3 ABG O2 Saturation ABG Base Excess ABG Hemoglobin Oxyhemoglobin Sodium 134 L Potassium Chloride Carbon Dioxide BUN 35 H Creatinine 0.5 L Glucose 122 H POC Glucose 125 H Lactic Acid Calcium 8.2 L Phosphorus Magnesium AST ALT Alkaline Phosphatase Lactate Dehydrogenase Troponin T C-Reactive Protein NT-Pro-B Natriuret Pep Total Protein Albumin LDL Cholesterol Direct Vitamin B12 Vancomycin Trough Crossmatch 12/21/21 12/21/21 12/21/21 05:38 11:29 16:16 WBC RBC Hgb Hct MCV MCH MCHC RDW Plt Count Seg Neuts % (Manual) Lymphocytes % (Manual) Seg Neutrophils # Man Lymphocytes # (Manual) Monocytes # (Manual) PT INR D-Dimer ABG pH ABG pO2 ABG HCO3 ABG O2 Saturation ABG Base Excess ABG Hemoglobin Oxyhemoglobin Sodium Potassium Chloride Carbon Dioxide BUN Creatinine Glucose POC Glucose 127 H 121 H 113 H Lactic Acid Calcium Phosphorus Magnesium AST ALT Alkaline Phosphatase Lactate Dehydrogenase Troponin T C-Reactive Protein NT-Pro-B Natriuret Pep Total Protein Albumin LDL Cholesterol Direct Vitamin B12 Vancomycin Trough Crossmatch 12/22/21 12/22/21 12/23/21 04:58 04:58 06:40 WBC 11.5 H RBC 3.43 L Hgb 9.8 L Hct 28.7 L MCV MCH MCHC RDW 18.5 H 17.9 H Plt Count Seg Neuts % (Manual) Lymphocytes % (Manual) Seg Neutrophils # Man Lymphocytes # (Manual) Monocytes # (Manual) PT INR D-Dimer ABG pH ABG pO2 ABG HCO3 ABG O2 Saturation ABG Base Excess ABG Hemoglobin Oxyhemoglobin Sodium 130 L Potassium Chloride 97.8 L Carbon Dioxide BUN 31 H Creatinine 0.5 L Glucose 122 H POC Glucose Lactic Acid Calcium 7.9 L Phosphorus Magnesium AST ALT Alkaline Phosphatase Lactate Dehydrogenase Troponin T C-Reactive Protein NT-Pro-B Natriuret Pep Total Protein Albumin LDL Cholesterol Direct Vitamin B12 Vancomycin Trough Crossmatch 12/23/21 12/23/21 12/24/21 06:40 23:25 04:24 WBC 11.7 H RBC Hgb 9.8 L Hct MCV MCH 26 L MCHC RDW 18.1 H Plt Count Seg Neuts % (Manual) Lymphocytes % (Manual) Seg Neutrophils # Man Lymphocytes # (Manual) Monocytes # (Manual) PT INR D-Dimer ABG pH ABG pO2 ABG HCO3 ABG O2 Saturation ABG Base Excess ABG Hemoglobin Oxyhemoglobin Sodium 136 L Potassium Chloride Carbon Dioxide BUN 27 H Creatinine 0.4 L Glucose 107 H POC Glucose 110 H Lactic Acid Calcium 8.1 L Phosphorus Magnesium AST ALT Alkaline Phosphatase Lactate Dehydrogenase Troponin T C-Reactive Protein NT-Pro-B Natriuret Pep Total Protein Albumin LDL Cholesterol Direct Vitamin B12 Vancomycin Trough Crossmatch 12/24/21 12/24/21 12/24/21 04:24 11:08 15:45 WBC RBC Hgb Hct MCV MCH MCHC RDW Plt Count Seg Neuts % (Manual) Lymphocytes % (Manual) Seg Neutrophils # Man Lymphocytes # (Manual) Monocytes # (Manual) PT INR D-Dimer ABG pH ABG pO2 ABG HCO3 ABG O2 Saturation ABG Base Excess ABG Hemoglobin Oxyhemoglobin Sodium 132 L Potassium Chloride Carbon Dioxide BUN 27 H Creatinine 0.3 L Glucose 108 H POC Glucose 116 H 107 H Lactic Acid Calcium Phosphorus Magnesium AST ALT Alkaline Phosphatase Lactate Dehydrogenase Troponin T C-Reactive Protein NT-Pro-B Natriuret Pep Total Protein Albumin LDL Cholesterol Direct Vitamin B12 Vancomycin Trough Crossmatch 12/24/21 12/25/21 12/25/21 23:43 05:29 11:48 WBC RBC Hgb Hct MCV MCH MCHC RDW Plt Count Seg Neuts % (Manual) Lymphocytes % (Manual) Seg Neutrophils # Man Lymphocytes # (Manual) Monocytes # (Manual) PT INR D-Dimer ABG pH ABG pO2 ABG HCO3 ABG O2 Saturation ABG Base Excess ABG Hemoglobin Oxyhemoglobin Sodium Potassium Chloride Carbon Dioxide BUN Creatinine Glucose POC Glucose 123 H 107 H 119 H Lactic Acid Calcium Phosphorus Magnesium AST ALT Alkaline Phosphatase Lactate Dehydrogenase Troponin T C-Reactive Protein NT-Pro-B Natriuret Pep Total Protein Albumin LDL Cholesterol Direct Vitamin B12 Vancomycin Trough Crossmatch 12/26/21 12/26/21 12/26/21 00:06 05:56 07:51 WBC 11.4 H RBC 3.40 L Hgb 9.3 L Hct 28.3 L MCV MCH 27 L MCHC RDW 18.2 H Plt Count Seg Neuts % (Manual) Lymphocytes % (Manual) Seg Neutrophils # Man Lymphocytes # (Manual) Monocytes # (Manual) PT INR D-Dimer ABG pH ABG pO2 ABG HCO3 ABG O2 Saturation ABG Base Excess ABG Hemoglobin Oxyhemoglobin Sodium Potassium Chloride Carbon Dioxide BUN Creatinine Glucose POC Glucose 133 H 107 H Lactic Acid Calcium Phosphorus Magnesium AST ALT Alkaline Phosphatase Lactate Dehydrogenase Troponin T C-Reactive Protein NT-Pro-B Natriuret Pep Total Protein Albumin LDL Cholesterol Direct Vitamin B12 Vancomycin Trough Crossmatch 12/26/21 12/26/21 12/26/21 07:51 11:43 17:06 WBC RBC Hgb Hct MCV MCH MCHC RDW Plt Count Seg Neuts % (Manual) Lymphocytes % (Manual) Seg Neutrophils # Man Lymphocytes # (Manual) Monocytes # (Manual) PT INR D-Dimer ABG pH ABG pO2 ABG HCO3 ABG O2 Saturation ABG Base Excess ABG Hemoglobin Oxyhemoglobin Sodium 136 L Potassium Chloride Carbon Dioxide BUN 25 H Creatinine 0.3 L Glucose 131 H POC Glucose 119 H 128 H Lactic Acid Calcium Phosphorus Magnesium AST ALT Alkaline Phosphatase Lactate Dehydrogenase Troponin T C-Reactive Protein NT-Pro-B Natriuret Pep Total Protein Albumin LDL Cholesterol Direct Vitamin B12 Vancomycin Trough Crossmatch 12/28/21 12/28/21 12/29/21 09:05 09:05 04:40 WBC RBC 3.19 L Hgb 8.9 L Hct 26.4 L MCV MCH 27 L MCHC RDW 18.4 H 17.9 H Plt Count Seg Neuts % (Manual) Lymphocytes % (Manual) Seg Neutrophils # Man Lymphocytes # (Manual) Monocytes # (Manual) PT INR D-Dimer ABG pH ABG pO2 ABG HCO3 ABG O2 Saturation ABG Base Excess ABG Hemoglobin Oxyhemoglobin Sodium 135 L Potassium Chloride 97.8 L Carbon Dioxide BUN 18 H Creatinine 0.3 L Glucose POC Glucose Lactic Acid Calcium Phosphorus Magnesium AST ALT Alkaline Phosphatase Lactate Dehydrogenase Troponin T C-Reactive Protein NT-Pro-B Natriuret Pep Total Protein Albumin LDL Cholesterol Direct Vitamin B12 Vancomycin Trough Crossmatch 12/29/21 12/29/21 12/30/21 04:40 12:47 04:05 WBC RBC 3.29 L Hgb 8.7 L Hct 27.6 L MCV MCH 27 L MCHC RDW 17.6 H Plt Count Seg Neuts % (Manual) Lymphocytes % (Manual) Seg Neutrophils # Man Lymphocytes # (Manual) Monocytes # (Manual) PT INR D-Dimer ABG pH ABG pO2 ABG HCO3 ABG O2 Saturation ABG Base Excess ABG Hemoglobin Oxyhemoglobin Sodium 136 L Potassium Chloride Carbon Dioxide BUN Creatinine 0.3 L Glucose POC Glucose 67 L Lactic Acid Calcium 8.3 L Phosphorus Magnesium AST ALT Alkaline Phosphatase Lactate Dehydrogenase Troponin T C-Reactive Protein NT-Pro-B Natriuret Pep Total Protein Albumin LDL Cholesterol Direct Vitamin B12 Vancomycin Trough Crossmatch 12/30/21 12/31/21 12/31/21 04:05 00:07 04:00 WBC RBC 3.05 L Hgb 8.5 L Hct 25.5 L MCV MCH MCHC RDW 18.2 H Plt Count Seg Neuts % (Manual) Lymphocytes % (Manual) Seg Neutrophils # Man Lymphocytes # (Manual) Monocytes # (Manual) PT INR D-Dimer ABG pH ABG pO2 ABG HCO3 ABG O2 Saturation ABG Base Excess ABG Hemoglobin Oxyhemoglobin Sodium 136 L Potassium 3.5 L Chloride Carbon Dioxide BUN Creatinine 0.4 L Glucose POC Glucose 139 H Lactic Acid Calcium Phosphorus Magnesium 1.50 L AST ALT Alkaline Phosphatase Lactate Dehydrogenase Troponin T C-Reactive Protein NT-Pro-B Natriuret Pep Total Protein Albumin LDL Cholesterol Direct Vitamin B12 Vancomycin Trough Crossmatch 12/31/21 12/31/21 12/31/21 04:00 04:52 11:23 WBC RBC Hgb Hct MCV MCH MCHC RDW Plt Count Seg Neuts % (Manual) Lymphocytes % (Manual) Seg Neutrophils # Man Lymphocytes # (Manual) Monocytes # (Manual) PT INR D-Dimer ABG pH ABG pO2 ABG HCO3 ABG O2 Saturation ABG Base Excess ABG Hemoglobin Oxyhemoglobin Sodium Potassium Chloride Carbon Dioxide BUN 19 H Creatinine 0.4 L Glucose 116 H POC Glucose 121 H 116 H Lactic Acid Calcium Phosphorus Magnesium AST ALT Alkaline Phosphatase Lactate Dehydrogenase Troponin T C-Reactive Protein NT-Pro-B Natriuret Pep Total Protein Albumin LDL Cholesterol Direct Vitamin B12 Vancomycin Trough Crossmatch 12/31/21 01/01/22 01/01/22 17:42 04:31 04:31 WBC RBC 2.83 L Hgb 7.7 L Hct 23.2 L MCV MCH 27 L MCHC RDW 18.3 H Plt Count Seg Neuts % (Manual) Lymphocytes % (Manual) Seg Neutrophils # Man Lymphocytes # (Manual) Monocytes # (Manual) PT INR D-Dimer ABG pH ABG pO2 ABG HCO3 ABG O2 Saturation ABG Base Excess ABG Hemoglobin Oxyhemoglobin Sodium 135 L Potassium Chloride 97.7 L Carbon Dioxide BUN 21 H Creatinine 0.5 L Glucose 127 H POC Glucose 107 H Lactic Acid Calcium 8.0 L Phosphorus Magnesium AST ALT Alkaline Phosphatase Lactate Dehydrogenase Troponin T C-Reactive Protein NT-Pro-B Natriuret Pep Total Protein Albumin LDL Cholesterol Direct Vitamin B12 Vancomycin Trough Crossmatch 01/01/22 01/01/22 01/01/22 05:24 11:25 18:11 WBC RBC Hgb Hct MCV MCH MCHC RDW Plt Count Seg Neuts % (Manual) Lymphocytes % (Manual) Seg Neutrophils # Man Lymphocytes # (Manual) Monocytes # (Manual) PT INR D-Dimer ABG pH ABG pO2 ABG HCO3 ABG O2 Saturation ABG Base Excess ABG Hemoglobin Oxyhemoglobin Sodium Potassium Chloride Carbon Dioxide BUN Creatinine Glucose POC Glucose 124 H 140 H 144 H Lactic Acid Calcium Phosphorus Magnesium AST ALT Alkaline Phosphatase Lactate Dehydrogenase Troponin T C-Reactive Protein NT-Pro-B Natriuret Pep Total Protein Albumin LDL Cholesterol Direct Vitamin B12 Vancomycin Trough Crossmatch 01/01/22 01/02/22 01/02/22 23:26 04:01 04:01 WBC RBC 2.57 L Hgb 7.1 L Hct 21.5 L MCV MCH MCHC RDW 18.1 H Plt Count Seg Neuts % (Manual) Lymphocytes % (Manual) Seg Neutrophils # Man Lymphocytes # (Manual) Monocytes # (Manual) PT INR D-Dimer ABG pH ABG pO2 ABG HCO3 ABG O2 Saturation ABG Base Excess ABG Hemoglobin Oxyhemoglobin Sodium 131 L Potassium 3.5 L Chloride 94.8 L Carbon Dioxide BUN 27 H Creatinine Glucose 121 H POC Glucose 121 H Lactic Acid Calcium Phosphorus Magnesium AST ALT Alkaline Phosphatase Lactate Dehydrogenase Troponin T C-Reactive Protein NT-Pro-B Natriuret Pep Total Protein Albumin LDL Cholesterol Direct Vitamin B12 Vancomycin Trough Crossmatch 01/02/22 01/02/22 01/02/22 05:30 11:10 16:08 WBC RBC Hgb Hct MCV MCH MCHC RDW Plt Count Seg Neuts % (Manual) Lymphocytes % (Manual) Seg Neutrophils # Man Lymphocytes # (Manual) Monocytes # (Manual) PT INR D-Dimer ABG pH ABG pO2 ABG HCO3 ABG O2 Saturation ABG Base Excess ABG Hemoglobin Oxyhemoglobin Sodium Potassium Chloride Carbon Dioxide BUN Creatinine Glucose POC Glucose 124 H 117 H 130 H Lactic Acid Calcium Phosphorus Magnesium AST ALT Alkaline Phosphatase Lactate Dehydrogenase Troponin T C-Reactive Protein NT-Pro-B Natriuret Pep Total Protein Albumin LDL Cholesterol Direct Vitamin B12 Vancomycin Trough Crossmatch 01/02/22 01/02/22 01/03/22 17:30 23:26 04:53 WBC RBC 2.82 L Hgb 7.7 L Hct 23.4 L MCV MCH 27 L MCHC RDW 18.0 H Plt Count Seg Neuts % (Manual) Lymphocytes % (Manual) Seg Neutrophils # Man Lymphocytes # (Manual) Monocytes # (Manual) PT INR D-Dimer ABG pH ABG pO2 ABG HCO3 ABG O2 Saturation ABG Base Excess ABG Hemoglobin Oxyhemoglobin Sodium Potassium Chloride Carbon Dioxide BUN Creatinine Glucose POC Glucose 114 H Lactic Acid Calcium Phosphorus Magnesium AST ALT Alkaline Phosphatase Lactate Dehydrogenase Troponin T C-Reactive Protein NT-Pro-B Natriuret Pep Total Protein Albumin LDL Cholesterol Direct Vitamin B12 Vancomycin Trough 22.8 H Crossmatch 01/03/22 01/03/22 01/03/22 04:53 06:23 17:35 WBC RBC Hgb Hct MCV MCH MCHC RDW Plt Count Seg Neuts % (Manual) Lymphocytes % (Manual) Seg Neutrophils # Man Lymphocytes # (Manual) Monocytes # (Manual) PT INR D-Dimer ABG pH ABG pO2 ABG HCO3 ABG O2 Saturation ABG Base Excess ABG Hemoglobin Oxyhemoglobin Sodium 133 L Potassium Chloride 96.2 L Carbon Dioxide BUN 30 H Creatinine Glucose 107 H POC Glucose 122 H 107 H Lactic Acid Calcium Phosphorus Magnesium AST ALT Alkaline Phosphatase Lactate Dehydrogenase Troponin T C-Reactive Protein NT-Pro-B Natriuret Pep Total Protein Albumin LDL Cholesterol Direct Vitamin B12 Vancomycin Trough Crossmatch 01/04/22 01/04/22 01/04/22 04:00 12:32 16:45 WBC RBC Hgb Hct MCV MCH MCHC RDW Plt Count Seg Neuts % (Manual) Lymphocytes % (Manual) Seg Neutrophils # Man Lymphocytes # (Manual) Monocytes # (Manual) PT INR D-Dimer ABG pH ABG pO2 ABG HCO3 ABG O2 Saturation ABG Base Excess ABG Hemoglobin Oxyhemoglobin Sodium 132 L Potassium Chloride 92.8 L Carbon Dioxide BUN 30 H Creatinine Glucose 115 H POC Glucose 111 H 111 H Lactic Acid Calcium Phosphorus Magnesium 1.60 L AST ALT Alkaline Phosphatase Lactate Dehydrogenase Troponin T C-Reactive Protein NT-Pro-B Natriuret Pep Total Protein Albumin LDL Cholesterol Direct Vitamin B12 Vancomycin Trough Crossmatch 01/05/22 01/05/22 01/05/22 04:30 04:30 17:04 WBC RBC 3.11 L Hgb 8.4 L Hct 25.5 L MCV MCH 27 L MCHC RDW 17.6 H Plt Count Seg Neuts % (Manual) Lymphocytes % (Manual) Seg Neutrophils # Man Lymphocytes # (Manual) Monocytes # (Manual) PT INR D-Dimer ABG pH ABG pO2 ABG HCO3 ABG O2 Saturation ABG Base Excess ABG Hemoglobin Oxyhemoglobin Sodium 135 L Potassium Chloride 93.6 L Carbon Dioxide BUN 29 H Creatinine Glucose POC Glucose 67 L Lactic Acid Calcium Phosphorus Magnesium AST ALT Alkaline Phosphatase Lactate Dehydrogenase Troponin T C-Reactive Protein NT-Pro-B Natriuret Pep Total Protein Albumin LDL Cholesterol Direct Vitamin B12 Vancomycin Trough Crossmatch 01/05/22 01/06/22 01/06/22 23:27 04:06 04:06 WBC RBC 2.89 L Hgb 7.7 L Hct 23.8 L MCV MCH 27 L MCHC RDW 18.0 H Plt Count Seg Neuts % (Manual) Lymphocytes % (Manual) Seg Neutrophils # Man Lymphocytes # (Manual) Monocytes # (Manual) PT 16.9 H INR 1.23 H D-Dimer ABG pH ABG pO2 ABG HCO3 ABG O2 Saturation ABG Base Excess ABG Hemoglobin Oxyhemoglobin Sodium Potassium Chloride Carbon Dioxide BUN Creatinine Glucose POC Glucose 110 H Lactic Acid Calcium Phosphorus Magnesium AST ALT Alkaline Phosphatase Lactate Dehydrogenase Troponin T C-Reactive Protein NT-Pro-B Natriuret Pep Total Protein Albumin LDL Cholesterol Direct Vitamin B12 Vancomycin Trough Crossmatch 01/06/22 04:06 WBC RBC Hgb Hct MCV MCH MCHC RDW Plt Count Seg Neuts % (Manual) Lymphocytes % (Manual) Seg Neutrophils # Man Lymphocytes # (Manual) Monocytes # (Manual) PT INR D-Dimer ABG pH ABG pO2 ABG HCO3 ABG O2 Saturation ABG Base Excess ABG Hemoglobin Oxyhemoglobin Sodium 132 L Potassium Chloride 92.3 L Carbon Dioxide BUN 26 H Creatinine Glucose 111 H POC Glucose Lactic Acid Calcium Phosphorus Magnesium AST ALT Alkaline Phosphatase Lactate Dehydrogenase Troponin T C-Reactive Protein NT-Pro-B Natriuret Pep Total Protein Albumin LDL Cholesterol Direct Vitamin B12 Vancomycin Trough Crossmatch Chest x-ray: pending Allied health notes reviewed: nursing
--- NOTE | 2022-01-06 13:14 | Procedure Note ---
Date of procedure: 01/06/22 Pre-op diagnosis: right pleural effusion Post-op diagnosis: same Procedure: US thoracentesis Findings: moderate right pleural effusion Anesthesia: local Surgeon: ALEE BETANCOURT Estimated blood loss: none Pathology: list (120cc) Specimen disposition: to lab Condition: stable Disposition: floor
--- NOTE | 2022-01-06 14:10 | Progress Note ---
Assessment and Plan Assessment and plan: History Interval history: This is an 82-year-old female with DM, HTN , CHB s/p PPM, CAD s/p PCI and arthritis who presented to the emergency department on 11/04 for shortness of breath ongoing for the past 3 days, cough and according to family a fever of 102.2. Upon arrival of EMS patient was found to be tachypneic and hypoxic with SPO2 of 76% on room air which later improved to 88% on nonrebreather. Work-up in the emergency department included a CXR which showed bilateral interstitial pulmonary edema with bilateral pleural effusions and bibasilar opacities, leukocytosis and anemia with a hemoglobin of 6.1. Patient was admitted to the hospitalist service with acute anemia, acute hypoxic respiratory failure, bilateral pneumonia and COVID-19 PUI with consults to pulmonology, infectious disease and later cardiology. Patient was eventually intubated in the emergency department on 11/06. Hospital Course to date: 11/04/2021: Empiric therapy with iv levaquin/vancomycin. COVID PCR pending. Will consult ID. PCCM consulted, will follow recs. Hypotensive this AM, ordered bolus and fluids at 150 cc/hr. May require pressor support if bp does not improve. 11/05/2021: GBS on bcx +, currently on rocephin IV. Currently on bipap due to respiratory distress overnight. Worsening BL opacities on CXR. May be volume overload vs pneumonia. Unfortunately bp too low for lasix at this point. WIll continue levophed and bipap. Once able to tolerate, may do trial of albumin/lasix. Call attempt made to [facility]ir[facility], no response. Will try again tomorrow to update. 11/06/2021: Decompensated overnight requiring intubation. CXR shows worsening interstitial infiltrates. Currenlty on dopamine, levophed, vasopressin. PICC line ordered. Advised RN to place gamble for I/O monitoring. Would benefit from diuresis but very volume overloaded. Prognosis guarded 11/08: Off sedation this am, remains unresponsive only grimace to pain. Hold all sedatives agents for now, patient is off pressors this am. Hypernatremia from today's lab- D5W X1bag, and low K repleted, repeat lab in the am. Severe constipation also noted from KUB, BR added. 11/09: Sudden SPO2 drop in the 60s this am. Patient was manually bagged and deep suctioned. Patient is currently stable on the vent, repeat CXR with no significant change. D/w CCM Mucomyst and brochodilator added. Patient mentation is unchanged, continue to hold off on sedative agents. Neurology consulted. 11/10: Acute DVT noted on bilateral lower extremity Doppler ultrasound therefore she was started on Lovenox treatment dose. Failed SBT. Hypernatremia and hyperchloremia noted, free water flush adjusted. 11/11: Patient noted to be febrile with increasing of the cytosis, UA/BC sent and CXR ordered. ID escalated antibiotics to cefepime. CXR demonstrated mucous plug, bedside bronchoscopy was performed and O ETT was changed over bougie from 6 cm to 7.5. Patient was noted to have a pneumothorax postprocedure and chest tube was placed. Family updated by [facility]. Free water flush increased and will add Jaswant supplementation. 11/12: Patient not noted to follow commands, hypernatremia worsen/persist, increasing free water flush, potassium and magnesium and phosphorus repleted. Hemoglobin noted to be 7./24.5 from 7.03/12 yesterday. We will continue to trend and monitor. Vent changes per [facility]. Repeat CXR showed no residual pneumothorax. Consider waterseal tomorrow. Given persistent leukocytosis antibiotics escalated to cefepime per ID. 11/13: Remains on cefepime and vancomycin, vent changes per [facility]. Anemia noted and given 1 unit PRBC. And beta-charleen held in setting of Levophed drip infusing. Remains on fentanyl drip. 11/14: Patient put on CPAP trial by [facility], will continue chest tube until after extubation. Will rest on assist control. CT brain was cancelled by radial drill press operator for plastic and reordered. 11/15: Patient removed chest tube overnight. Will obtain cxr. remains on low dose levo. CTH completed with no acute findings. RT to place on CPAP. 11/16: Hypernatremia/hyperchloremia noted on the increase of day water flushes. Anemia noted and ordered PRBC. asked RT to place on cpap but not done yet 11/17: Patient remains on the vent, awake and following commands. H&H stable s/p 2units PRBCs. GI on consult, no intervention at this time. Will continue protonix gtt and serial H&H Q6hrs. Keep patient NPO for now, D5w added for hypernatremia and NPO status. Plan for IVC filter placement today by Vascular. 11/18: Patient is s/p IVC filter. H&H continue to trend down, hbg 6.1 this am, 1 unit of PRBCs ordered. Plan for possible EGD today by GI. Keep patient NPO, continue PPI drip and serial H&H Q6hrs. Electrolytes repleted, repeat lab in the am 11/19: S/p EGD- larger duodenal ulcer noted, see operative note. GI recommendations noted also noted. H&H stable this am. Keep patient on protonix gtt for now. Will keep patient NPO, continue IVF and serial H&H for now. Electrolytes repleted, repeat labs in the am 11/20: Very agitated and restless this am, fentanyl gtt resumed. Patient remains on protonix gtt, H&H remains stable. Will switch protonix gtt to IV BID, continue carafate and okay to resume meds at this time. Will F/u with GI to see if TF can be resumed. Gamble was reinserted overnight for retention. Electrolytes repleted, repeat in the am. Plan for possible PST today for possible extubation per CCM. 11/21: Patient is now on seroquel and patient's home buspar resumed. Patient more calm this morning, fentanyl gtt is off. H&H remains stable and patient is tolerating TF. Patient had a runs of Vtach/PVCs this am, BB added per Cardio. Continue daily PS and wean trial for possible extubation. 11/22: Back on fentanyl gtt overnight , RASS o to -1, following commands. Patient failed PST this am due to increased work of breathing and low SPO2, ABG pending. Patient is also with worsen pitting edema, lasix is still on hold. Will discuss with cardio and CCM to possibly resume lasix. 11/23: MARIA DEL CARMEN overnight. Patient failed PST again this am. Per CCM plan for possible trach and PEG, hold off on IV lasix for now. General surgery consulted and family is aware of possible Trach and PEG. 11/24: Trach/PEG pending this week, continue SBT/SAT as tolerated. No acute events reported overnight. 11/25: Patient was n.p.o. overnight and will remain n.p.o. tonight for trach/PEG tomorrow morning. She failed to support trial again. KUB obtained due to distended belly. 11/26: Patient scheduled for tracheostomy and PEG tube placement today, has been n.p.o. since midnight. No acute events reported overnight. [facility] ordered simethicone scheduled. 11/27: No acute events reported overnight, patient received trach/PEG yesterday. Has been on feedings since last night. Still awaiting LTAC placement. 11/28: Patient magnesium repleted, repeat a.m. labs, SBT 11/29: Patient complains of chest pain but ECG obtained which showed no acute findings, ordered troponin. Patient failed CPAP yesterday and was trialed again today. levophed was restarted but will aggressively wean 11/30: Patient failed SBT. Continue supportive care. Started gabapentin today 12/01: MARIA DEL CARMEN overnight. Continue daily PST. Case management to arrange possible placement 12/02: Report of dark stools overnight, patient is hemodynamically stable. H&H stable, patient is on PPI. Will continue to trend H&H. Continue daily PST as tolerated. Awaiting LTAC vs SNF placement. 12/03: Hypotensive overnight, requiring low dose pressors. S/p X3 days of gentle diurese. Will continue to monitor, wean off pressors as tolerated for MAP of 65. Patient Failed PST yesterday, case management to follow up with insurance for possible LTAC placement. Continue daily PST as tolerated. PT eval and treat ordered. 12/04: Increased agitation and anxiety overnight, remains on buspar and seroquel, trazadone added to promote rest. Patient is now working with PT, keep patient engage and awake during the day so she can rest at night. No BM for over 5 days, BR was adjusted. Patient did not tolerate PST again yesterday, continue daily PST as tolerated. Continue to titrate pressor for MAP above 65. Pending possible LTAC placement, case management to arrange. 12/05: Still not getting much rest overnight, will add melatonin for sleep. Continue to engage patient during the day and promote rest at night. TF was held due to concern for possible bleeding, H&H remains stable and stools normal this am. Resume TF and continue PPI and carafate. Remains on low dose levophed, titrate as tolerated. Continue daily PST. Possible LTAC placement, awaiting approval. 12/06: MARIA DEL CARMEN overnight. Patient rested overnight. Continue supportive measures. Daily PST as tolerated. Awaiting possible LTAC placement 12/07: MARIA DEL CARMEN overnight. Plan for Tpiece trial today. Continue current supportive measures. Possible LTAC placement 12/08: Patient placed on pressure support trial again today, started on Xanax, no acute events reported overnight. Awaiting insurance approval for LTAC. 12/09: Levophed discontinued, LTAC transfer denied, started on midodrine and Lasix, ultrasound chest pending, started on Xanax 0.[address] De León updated family at bedside today. Started on Dilaudid every 3 hours as needed. 12/10: Patient placed on CPAP trial this morning, no acute events reported overnight. Will order ultrasound-guided thoracentesis. 12/11: Patient had a thoracentesis today, will decrease Xanax dosage and continue midodrine and diuresing. Patient failed CPAP today. 12/12: Patient not tolerate CPAP trials today, no acute events reported overnight 12/13: No acute events overnight. continue PSV trials as tolerated. Daughter updated at bedside 12/14: Patient noted to be anemic today, ordered gastric occult. Patient seems to be oversedated therefore Xanax changed to as needed and fentanyl patch discontinued. We will continue to monitor hyponatremia. 12/15: MARIA DEL CARMEN overnight. s/p 1unit of PRBCs, H&H stable this am, no signs of any active bleeding. Continue daily PST as tolerated. Awaiting placement. 12/16: Hypertensive this am, Midodrine decreased. Continue daily PST. MARIA DEL CARMEN overnight 12/17: Patient Hgb dropped to 6 this am, no s/s of any active bleeding, VSS. Patient received 1unit of PRBC, will continue to trend H&H. Patient was pancultured and back on IV Abx due to persistent fevers yesterday. ID is also back on the case. Continue IV Abx per ID and f/u on cultures data for sensitivity. Patient also failed PST yesterday, continue daily PST as tolerated. Electrolytes repleted, repeat labs in the am. 12/18: Patient blood cultures is growing GPC 4 out 4 bottles. PICC line D/Rivas, patient is already on IV Abx-cefepine and Vanc and ID is following. Patient remains hemodynamically stable. Daily PST as tolerated adn PRN Benzo for anxiety. 12/19: MARIA DEL CARMEN overnight. Culture data noted, continue IV Abx per ID. Orders placed for repeat Bculture. Gamble D/C overnight, patient is voiding. Check bladder scan as needed for retention. Patient failed PST again today. Continue daily PST as tolerated. 12/20: Fevers improved, Cultures +MRSA, on Vanco per ID. Repeat 2D Echo to r/o endocarditis. Patient continue to fail PST, PEEP increased to 8 today. Continue pulmonary hygiene and vent wean per CCM. Sodium tab added for hyponatremia. 12/22: Patient on pressure support trial for approximately 4 hours today, midodrine dosage increased due to hypotension. Lasix discontinued. 12/23: Started on a.m. Seroquel dose, midodrine increased to 10 mg 3 times daily, 500 mL normal saline bolus. 12/24: Seroquel dose changed (25 every morning, 75 nightly). updated at bedside by Dr. De León. CPAP trials as tolerated. Continue vancomycin. Awaiting placement. 12/25: Continue CPAP as tolerated, added gasx for distention. Continue supportive care 12/26: Patient failed PSV this AM. no acute events overnight. 12/27: GI re-consulted due to abdominal distention. No acute events reported overnight. CPAP trials as tolerated. Dr. Mckenna will get a KUB to rule out po ssible obstruction. 12/28: KUB shows no acute process, CXR shows improvement. CPAP trials as tolerat ed. 12/29: CT Abd/pelvis noted with moderated bilateral pleural effusion, anasarca, and ascites. X1dose of IV lasix administered. D/w CCM and GI orders plan for thora and paracentesis by IR. Will also start patient on aldactone Qday. Patient is tolerating trickle feeds this am, continue TF and BR adjusted for constipation. Plan of care was discussed with patient and her at the bedside. Thorough discussion on patient's overall poor prognosis and that patient will most likely be vent dependent. Patient's voiced understanding of the info given. All questions and concerns were voiced at this time. 12/30: Patient did not tolerate thoracentesis in IR yesterday due to change in LOC and hypoxia. Plan for possible bedside thoracentesis and paracentesis today. Patient remains afebrile. Patient required half-way IV abx therapy [id number] left, orders placed for a PICC. Patient remains with sign. Piting edema and anasarca, X1 does of PO Zaroxolyn and 2m of IV lasix given. Electrolytes repleted, repeat lab in the am. 12/31: Tolerated Rt. thoracentesis at the bedside yesterday, 1.4L removed. Patient remains stable on the vent this am, tolerating CPAP today PS dropped to 14. Recent CXR noted, left pleural effusion improved. Patient tolerated gentle diurese yesterday, good urine output reported. D/w CCM hold off on Left thoracentesis today, continue PO Aldactone and additonal zaroxolyn and IV lasix again today. F/u CXR in the am. 01/01: This am CXR noted with worsening bilateral pleural effusion. Patient is stable and tolerating PST this am, however PS is back up to 20 this am. BP is soft this am will hold off on IV diuretic for today, continue PO Aldactone. D/w CCM continue gentle diurese as tolerated. Will reassess in the am. Continue support care. 01/02: MARIA DEL CARMEN overnight. VSS this am, tolerating PST. X1dose of 25% IV Albumin following with 20mg IV Lasix today. Continue daily gentle diurese if hemodynamics tolerate it. Continue to monitor and replace electrolytes as needed 01/03: Abdominal distention and vomiting overnight, 600cc of gastric residual removed, TF held. KUB with no acute abnormality. Reglan added X2days, resume TF, and continue BR. Patient is tolerating PST this am. Hemodynamics remains stable, will continue gentle IV diurese. close monitoring to renal function and electrolytes. 01/04: Tolerating TF, nausea/vomiting resolved, last BM on 01/03. Continue Reglan X1 more day. Patient continue to tolerate PST. D/W CCM continue gentle diurese. F/U CXR in the am. Possible US thoracentesis tomorrow. 01/05: no acute events overnight. scheduled for thoracentesis today but procedure pushed to tomorrow. TF restarted and will be NPO post MN. 01/06: planned thoracentesis today. Working with CM for ltac/snf approval. Assessment and Plan Neuro : Anxiety, chronic pain -Neurology consulted, appreciate recommendations -CT brain showed no acute events -EEG interpreted as abnormal record due to diffuse slowing noted throughout the recording, suggestive of encephalopathic process and/or drug effect, possibilities of postictal state cannot be totally excluded. Clinical correlation is in order -MRI brain not obtained-> patient has metal in her body -Repeat CT head with no acute findings -Reorientation as needed -Ammonia 42, B12 1823, TSH 1.5 -BuSpar, Seroquel, [place], gabapentin -prn xanax and Dilaudid Cardio: Acute Heart failure with reduced EF, h/o chronic heart block s/p PPM, HTN, CAD s/p PCI (2004), Moderate pulmonary HTN, cardiomyopathy -s/p vasopressor support with levophed -11/04 echocardiogram shows EF 30 to 35%, Moderate pulmonary HTN RVSP 49 -12/19 echo with 35-40% EF -Cardiology consulted, appreciate recommendations -Continue beta-charleen and statin therapy -Midodrine (titrate as needed) -Not on aspirin due to allergy -Blood pressure monitoring per protocol -As needed nitroglycerin Resp: Acute hypoxic respiratory failure secondary to bilateral pneumonia, bilateral pleural effusion. Right pneumothorax (resolved) -COVID-19 PCR negative -Intubated on 11/06 with 6.00 ETT at 18 at the lip and changed over bougie on 11/11-7.50 ETT at 20 at the lip -See RT notes for titration -PSV as tolerated -Surgery consult for trach -Received trach/PEG on 11/26 -S/p bedside bronchoscopy on 11/11 complicated by pneumothorax -S/p chest tube placement for right pneumothorax and dislodgment by patient on 11/15 -ABG/CXR per CCM -VAP bundle -Right chest wall ultrasound showed pleural effusion s/p chest tube -12/11 US thoracentesis removed 1L fluid -12/29 US thoracentesis removed 1.4L fluid -01/06 thoracentesis planned -SPO2 monitoring GI: S/p GI bleed, duodenal ulcer, transaminitis -GI consulted, appreciate recommendations-signed off -Nutrition consult for tube feeding -BR: Senokot -s/p peg 11/26 -H2 charleen -Carafate -24-hour +428 ml -10/2021 Gastric occult positive -> EGD-> duodenal ulcer -12/14 occult stool positive : Urinary retention (resolved), hyponatremia, hypochloremia -Strict intake and output -Trend BMP ID: Septic shock (POA-resolved), bilateral pneumonia, MRSA bacteremia/pna -Infectious disease consulted, appreciate recommendations -COVID-19 PCR negative -Presented with fevers, leukocytosis and hypotension -11/04 blood cultures positive with a group B strep bacteremia 12/19 however repeat blood cultures on the with no growth to date -Echo showed no evidence of vegetation -repeat echo showed EF 35-40 % with no vegetations -ABX therapy: IV vancomycin for 4 weeks (12/16-01/26) -Monitor WBC and fever curve -Bedside bronchoscopy for mucous plug on CXR 11/11 -f/u blood cultures Heme: Acute DVT in the right external iliac vein, common femoral vein, superior aspect of femoral vein, Acute microcytic anemia -Evidenced on bilateral upper lower extremity ultrasound -S/p 7 unit PRBC -Trend CBC -Transfuse for hemoglobin less than 7 -heparin gtt dc d/t anemia -S/p IVC filter Endo: h/o DM and hypothyroidism -Continue home Synthroid -SSI -Accu-Cheks every 6 -Avoid hypoglycemia Disposition: Denied LTAC placement by insurance, appeal denied. Awaiting subacute rehab placement The high probability of a clinically significant, sudden or life threatening deterioration of the [pulm,mental health, CV] system(s) required my full and direct attention, intervention and personal management. The aggregate critical care time was [60] minutes. This time is in addition to time spent performing reported procedures but includes the following: [x] Data Review and interpretation [x] Patient assessment and monitoring of vital signs [x] Documentation [x] Medication orders and management Disposition Plan: imcu Total Time Spent with Patient (Minutes): 60 History Interval history: No overnight events. Patient had no complaints. Discusssed case with pulmonary as well at patient bedside. Hospitalist Physical - Physical exam Narrative exam: Physical Exam: VITAL SIGNS: Reviewed. GENERAL: The patient appears normally developed, Vital signs as documented. Frail appearing elderly woman. HEAD: No signs of head trauma. EYES: Pupils are equal. Extraocular motions intact. EARS: Hearing grossly intact. MOUTH: Oropharynx is normal. NECK: No adenopathy, no JVD. CHEST: Bl rhonchi CARDIAC: Regular rate and rhythm. S1 and S2, without murmurs, gallops, or rubs. VASCULAR: No Edema. Peripheral pulses normal and equal in all extremities. ABDOMEN: Soft, non tender and non distended. No rebound or guarding, and no masses palpated. Bowel Sounds normal. MUSCULOSKELETAL: Good range of motion of all major joints. Extremities without clubbing, cyanosis or edema. NEUROLOGIC EXAM: Alert and oriented x 4. no focal sensory or strength deficits. PSYCHIATRIC: anxious appearing SKIN: detail exam as documented in skin assessment - Constitutional Vitals: Temp Pulse Resp BP Pulse Ox 98.2 F 60 14 116/49 100 01/06/22 12:31 01/06/22 12:00 01/06/22 12:00 01/06/22 12:00 01/06/22 12:00 General appearance: Present: no acute distress, other (Trach and on the vent) HEART Score - HEART Score Troponin: Troponin T 0.045 ng/mL (0.00-0.029) H 11/29/21 20:15 Results - Labs CBC & Chem 7: 01/06/22 04:06 01/06/22 04:06 Labs: Laboratory Last Values WBC 7.7 K/mm3 (4.5-11.0) 01/06/22 04:06 RBC 2.89 M/mm3 (3.65-5.03) L 01/06/22 04:06 Hgb 7.7 gm/dl (10.1-14.3) L 01/06/22 04:06 Hct 23.8 % (30.3-42.9) L 01/06/22 04:06 MCV 82 fl (79-97) 01/06/22 04:06 MCH 27 pg (28-32) L 01/06/22 04:06 MCHC 33 % (30-34) 01/06/22 04:06 RDW 18.0 % (13.2-15.2) H 01/06/22 04:06 Plt Count 225 K/mm3 (140-440) 01/06/22 04:06 Add Manual Diff Complete 12/20/21 04:54 Total Counted 100 12/20/21 04:54 Seg Neutrophils % Welfare Interviewer 11/06/21 15:50 Seg Neuts % (Manual) 88.0 % (40.0-70.0) H 12/20/21 04:54 Band Neutrophils % 0 % 12/20/21 04:54 Lymphocytes % (Manual) 6.0 % (13.4-35.0) L 12/20/21 04:54 Reactive Lymphs % (Man) 0 % 12/20/21 04:54 Monocytes % (Manual) 5.0 % (0.0-7.3) 12/20/21 04:54 Eosinophils % (Manual) 1.0 % (0.0-4.3) 12/20/21 04:54 Basophils % (Manual) 0 % (0.0-1.8) 12/20/21 04:54 Metamyelocytes % 0 % 12/20/21 04:54 Myelocytes % 0 % 12/20/21 04:54 Promyelocytes % 0 % 12/20/21 04:54 Blast Cells % 0 % 12/20/21 04:54 Nucleated RBC % Not Reportable 12/20/21 04:54 Seg Neutrophils # Man 10.8 K/mm3 (1.8-7.7) H 12/20/21 04:54 Band Neutrophils # 0.0 K/mm3 12/20/21 04:54 Lymphocytes # (Manual) 0.7 K/mm3 (1.2-5.4) L 12/20/21 04:54 Abs React Lymphs (Man) 0.0 K/mm3 12/20/21 04:54 Monocytes # (Manual) 0.6 K/mm3 (0.0-0.8) 12/20/21 04:54 Eosinophils # (Manual) 0.1 K/mm3 (0.0-0.4) 12/20/21 04:54 Basophils # (Manual) 0.0 K/mm3 (0.0-0.1) 12/20/21 04:54 Metamyelocytes # 0.0 K/mm3 12/20/21 04:54 Myelocytes # 0.0 K/mm3 12/20/21 04:54 Promyelocytes # 0.0 K/mm3 12/20/21 04:54 Blast Cells # 0.0 K/mm3 12/20/21 04:54 WBC Morphology Not Reportable 12/20/21 04:54 Hypersegmented Neuts Not Reportable 12/20/21 04:54 Hyposegmented Neuts Not Reportable 12/20/21 04:54 Hypogranular Neuts Not Reportable 12/20/21 04:54 Smudge Cells Not Reportable 12/20/21 04:54 Toxic Granulation Not Reportable 12/20/21 04:54 Toxic Vacuolation Not Reportable 12/20/21 04:54 Dohle Bodies Not Reportable 12/20/21 04:54 Pelger-Huet Anomaly Not Reportable 12/20/21 04:54 Irina Rods Not Reportable 12/20/21 04:54 Platelet Estimate Consistent w auto 12/20/21 04:54 Clumped Platelets Not Reportable 12/20/21 04:54 Plt Clumps, EDTA Not Reportable 12/20/21 04:54 Large Platelets Not Reportable 12/20/21 04:54 Giant Platelets Not Reportable 12/20/21 04:54 Platelet Satelliting Not Reportable 12/20/21 04:54 Plt Morphology Comment Not Reportable 12/20/21 04:54 RBC Morphology Not Reportable 12/20/21 04:54 Dimorphic RBCs Not Reportable 12/20/21 04:54 Polychromasia Not Reportable 12/20/21 04:54 Hypochromasia Not Reportable 12/20/21 04:54 Poikilocytosis Not Reportable 12/20/21 04:54 Anisocytosis 1+ 12/20/21 04:54 Microcytosis Not Reportable 12/20/21 04:54 Macrocytosis Not Reportable 12/20/21 04:54 Spherocytes Not Reportable 12/20/21 04:54 Pappenheimer Bodies Not Reportable 12/20/21 04:54 Sickle Cells Not Reportable 12/20/21 04:54 Target Cells Not Reportable 12/20/21 04:54 Tear Drop Cells Not Reportable 12/20/21 04:54 Ovalocytes Not Reportable 12/20/21 04:54 Helmet Cells Not Reportable 12/20/21 04:54 [place] Bodies Not Reportable 12/20/21 04:54 [place] Rings Not Reportable 12/20/21 04:54 [place] Cells Not Reportable 12/20/21 04:54 Bite Cells Not Reportable 12/20/21 04:54 Crenated Cell Not Reportable 12/20/21 04:54 Elliptocytes Not Reportable 12/20/21 04:54 Acanthocytes (Spur) Not Reportable 12/20/21 04:54 Rouleaux Not Reportable 12/20/21 04:54 Hemoglobin C Crystals Not Reportable 12/20/21 04:54 Schistocytes Not Reportable 12/20/21 04:54 Malaria parasites Not Reportable 12/20/21 04:54 [place] Bodies Not Reportable 12/20/21 04:54 [facility] Commnt No 12/20/21 04:54 PT 16.9 Sec. (12.2-14.9) H 01/06/22 04:06 INR 1.23 (0.87-1.13) H 01/06/22 04:06 APTT 29.2 Sec. (24.2-36.6) 11/26/21 05:00 D-Dimer 2655.00 ng/mlDDU (0-234) H 11/11/21 04:28 ABG pH 7.479 pH Units (7.350-7.450) H 12/16/21 20:52 ABG pCO2 37.5 mm Hg 12/16/21 20:52 ABG pO2 79.3 mm Hg (80.0-90.0) L 12/16/21 20:52 ABG HCO3 27.3 mmol/L (20.0-26.0) H 12/16/21 20:52 ABG O2 Saturation 97.0 % (95.0-99.0) 12/16/21 20:52 ABG O2 Content 12.3 (0.0-44) 12/16/21 20:52 ABG Base Excess 3.6 mmol/L (-2.0-3.0) H 12/16/21 20:52 ABG Hemoglobin 9.1 gm/dl (12.0-16.0) L 12/16/21 20:52 ABG Carboxyhemoglobin 1.6 % (0.0-5.0) 12/16/21 20:52 ABG Methemoglobin 0.5 % (0.0-1.5) 12/16/21 20:52 Oxyhemoglobin 94.9 % (95.0-99.0) L 12/16/21 20:52 FiO2 30 % 12/16/21 20:52 Sodium 132 mmol/L (137-145) L 01/06/22 04:06 Potassium 3.6 mmol/L (3.6-5.0) 01/06/22 04:06 Chloride 92.3 mmol/L (98-107) L 01/06/22 04:06 Carbon Dioxide 27 mmol/L (22-30) 01/06/22 04:06 Anion Gap 16 mmol/L 01/06/22 04:06 BUN 26 mg/dL (7-17) H 01/06/22 04:06 Creatinine 0.6 mg/dL (0.6-1.2) 01/06/22 04:06 Estimated GFR > 60 ml/min 01/06/22 04:06 BUN/Creatinine Ratio 43 % 01/06/22 04:06 Glucose 111 mg/dL (65-100) H 01/06/22 04:06 POC Glucose 110 mg/dL (70-105) H 01/05/22 23:27 Lactic Acid 3.70 mmol/L (0.7-2.0) H* 11/03/21 22:32 Calcium 8.7 mg/dL (8.4-10.2) 01/06/22 04:06 Phosphorus 3.80 mg/dL (2.5-4.5) 01/05/22 04:30 Magnesium 2.00 mg/dL (1.7-2.3) 01/05/22 04:30 Ferritin 52.6 ng/mL (10.0-200.0) 11/05/21 06:11 Total Bilirubin 0.50 mg/dL (0.1-1.2) 11/17/21 05:56 Direct Bilirubin < 0.2 mg/dL (0-0.2) 11/11/21 04:28 Indirect Bilirubin 0.1 mg/dL 11/11/21 04:28 AST 36 units/L (5-40) 11/17/21 05:56 ALT 47 units/L (7-56) 11/17/21 05:56 Alkaline Phosphatase 107 units/L (35-129) 11/17/21 05:56 Ammonia 42.0 umol/L (25-60) 11/10/21 14:08 Lactate Dehydrogenase 187 units/L (91-180) H 11/05/21 06:11 Troponin T 0.045 ng/mL (0.00-0.029) H 11/29/21 20:15 C-Reactive Protein 22.20 mg/dL (0.00-1.30) H 11/05/21 06:11 NT-Pro-B Natriuret Pep 7895 pg/mL (0-900) H 11/03/21 22:32 Total Protein 5.1 g/dL (6.3-8.2) L 11/17/21 05:56 Albumin 2.2 g/dL (3.9-5) L 11/17/21 05:56 Albumin/Globulin Ratio 0.8 % 11/17/21 05:56 Triglycerides 59 mg/dL (2-149) 11/29/21 20:15 Cholesterol 74 mg/dL (50-199) 11/29/21 20:15 LDL Cholesterol Direct 25 mg/dL (50-130) L 11/29/21 20:15 HDL Cholesterol 41 mg/dL (40-59) 11/29/21 20:15 Cholesterol/HDL Ratio 1.80 % 11/29/21 20:15 Vitamin B12 1823 pg/mL (211-911) H 11/10/21 14:08 TSH 1.510 mlU/mL (0.270-4.200) 11/10/21 14:08 Urine Color Yellow (Yellow) 11/11/21 09:00 Urine Turbidity Slightly-cloudy (Clear) 11/11/21 09:00 Urine pH 5.0 (5.0-7.0) 11/11/21 09:00 Ur Specific [place] 1.009 (1.003-1.030) 11/11/21 09:00 Urine Protein <15 mg/dl mg/dL (Negative) 11/11/21 09:00 Urine Glucose (UA) Neg mg/dL (Negative) 11/11/21 09:00 Urine Ketones Neg mg/dL (Negative) 11/11/21 09:00 Urine Blood Mod (Negative) 11/11/21 09:00 Urine Nitrite Neg (Negative) 11/11/21 09:00 Urine Bilirubin Neg (Negative) 11/11/21 09:00 Urine Urobilinogen < 2.0 mg/dL (<2.0) 11/11/21 09:00 Ur Leukocyte Esterase Neg (Negative) 11/11/21 09:00 Urine WBC (Auto) < 1.0 /HPF (0.0-6.0) 11/11/21 09:00 Urine RBC (Auto) < 1.0 /HPF (0.0-6.0) 11/11/21 09:00 Vancomycin Trough 22.8 ug/mL (5.0-20.0) H 01/02/22 17:30 Random Vancomycin 10.5 ug/mL (0-40.0) 01/04/22 05:00 Coronavirus (PCR) Negative (Negative) 11/10/21 08:30 Blood Type O POSITIVE 12/14/21 10:30 Antibody Screen Negative 12/14/21 10:30 Crossmatch See Detail 12/14/21 10:30 Gamble/IV: Voiding Method External Female Catheter Active Medications - Current Medications Current Medications: Generic Name Dose Route Start Last Admin Trade Name Freq PRN Reason Stop Dose Admin Acetaminophen 650 mg 12/14/21 04:12 01/01/22 11:45 Acetaminophen 325 Mg/10.15 Ml Oral Liqd Unit Dose FEEDTUBE 650 mg Q6H PRN Administration Non Cardiac Pain or Temp>100.5 Hydrocodone Bitart/Acetaminophen 1 each 11/21/21 10:00 01/06/22 13:52 Hydrocodone/Acetaminophen 10-325mg Tab FEEDTUBE 1 each TID YOSSI Administration Alprazolam 0.25 mg 12/30/21 09:00 01/05/22 23:28 Alprazolam 0.25 Mg Tab FEEDTUBE 0.25 mg Q8H PRN Administration Agitation Lipase/Protease/Amylase 1 each 11/08/21 11:09 Lipase 10,500/Protease 25,000/Amylase 43,750 (Units) Dr Lema FEEDTUBE PRN PRN For Clogged Feeding Tube Buspirone HCl 7.5 mg 12/30/21 10:00 01/06/22 10:21 Buspirone 5 Mg Tab FEEDTUBE 7.5 mg BID YOSSI Administration Dextrose 0 ml 11/10/21 10:52 12/30/21 00:48 Dextrose 10% *Hypoglycemia IV 50 ml PRN PRN Administration Hypoglycemia Docusate Sodium 100 mg 12/30/21 10:00 01/06/22 10:21 Docusate Sodium 100 Mg/10 Ml Oral Liqd FEEDTUBE 100 mg BID YOSSI Administration Gabapentin 100 mg 12/30/21 10:00 01/06/22 10:22 Gabapentin 100 Mg Cap FEEDTUBE 100 mg QDAY YOSSI Administration Hydromorphone HCl 0.5 mg 12/08/21 20:06 01/05/22 14:20 Hydromorphone 1 Mg/1 Ml Inj IV 0.5 mg Q3H PRN Administration Pain, Moderate (4-6) Hydrophilic Ointment 1 applic 11/06/21 04:02 Lip Therapy Vaseline TP Q2HR PRN Dry Lips Vancomycin HCl 1 gm in 250 mls @ 166.667 mls/hr 01/04/22 10:00 01/06/22 10:23 Vancomycin/Ns 1 Gm/250 Ml IV 01/26/22 11:29 166.667 mls/hr Q48H YOSSI Administration Lansoprazole 30 mg 11/24/21 22:00 01/06/22 10:22 Lansoprazole 30 Mg Solutab FEEDTUBE 30 mg BID YOSSI Administration Levothyroxine Sodium 125 mcg 12/31/21 06:00 01/06/22 06:49 Levothyroxine 125 Mcg Tab FEEDTUBE Not Given DAILY@0600 YOSSI Melatonin 5 mg 12/05/21 22:00 01/05/22 21:18 Melatonin 5 Mg Tab PO 5 mg QHS YOSSI Administration Metoprolol Tartrate 6.25 mg 12/30/21 10:00 01/06/22 10:22 Metoprolol Tartrate 25 Mg Tab FEEDTUBE Not Given BID YOSSI Midodrine 5 mg 12/30/21 09:00 01/06/22 12:26 Midodrine 5 Mg Tab FEEDTUBE 5 mg TID@0800,1200,1600 YOSSI Administration Multi-Ingred Cream/Lotion/Oil/Oint 1 applic 11/06/21 04:02 Mineral Oil/Petrolatum, White Ophth Oint 3.5 Gm OU Q4HR PRN Dry Eye(s) Ondansetron HCl 4 mg 12/05/21 10:00 01/05/22 21:19 Ondansetron 4 Mg/2 Ml Inj IV 4 mg Q8H PRN Administration Nausea And Vomiting Polyethylene Glycol 17 gm 12/30/21 10:00 01/06/22 10:22 Polyethylene Glycol 3350 17 Gm Powder FEEDTUBE Not Given QDAY YOSSI Pravastatin Sodium 20 mg 12/30/21 22:00 01/05/22 21:19 Pravastatin 20 Mg Tab FEEDTUBE 20 mg QHS YOSSI Administration Quetiapine Fumarate 25 mg 12/30/21 10:00 01/06/22 10:22 Quetiapine 25 Mg Tab FEEDTUBE 25 mg QAM YOSSI Administration Quetiapine Fumarate 50 mg 12/30/21 22:00 01/05/22 21:18 Quetiapine 25 Mg Tab FEEDTUBE 50 mg QHS YOSSI Administration Senna 17.6 mg 12/29/21 11:00 01/06/22 10:22 Sennosides Oral Liqd 8.8 Mg/5 Ml Oral Liqd FEEDTUBE Not Given Q12HR YOSSI Simple Syrup 15 ml 11/08/21 11:09 Simple Syrup 15 Ml FEEDTUBE PRN PRN Hypoglycemia Simple Syrup 30 ml 11/08/21 11:09 Simple Syrup 15 Ml FEEDTUBE PRN PRN Hypoglycemia Sodium Bicarbonate 325 mg 11/08/21 11:09 Sodium Bicarbonate 325 Mg Tab FEEDTUBE PRN PRN For Clogged Feeding Tube Sodium Chloride 10 ml 11/04/21 10:00 01/06/22 10:22 Sodium Chloride 0.9% 10 Ml Flush Syringe IV 10 ml BID YOSSI Administration Sodium Chloride 10 ml 11/04/21 02:03 Sodium Chloride 0.9% 10 Ml Flush Syringe IV PRN PRN LINE FLUSH Spironolactone 25 mg 12/30/21 10:00 01/06/22 10:21 Spironolactone 25 Mg Tab FEEDTUBE 25 mg QDAY YOSSI Administration Sucralfate 1 gm 12/30/21 12:00 01/06/22 12:26 Sucralfate 1 Gm/10 Ml Oral Liqd FEEDTUBE 1 gm Q6HR YOSSI Administration Trazodone HCl 50 mg 12/04/21 22:00 01/05/22 21:18 Trazodone 50 Mg Tab PO 50 mg QHS YOSSI Administration Nutrition/Malnutrition Assess - Dietary Evaluation Nutrition/Malnutrition Findings: Nutrition Notes Start: 11/04/21 17:16 Freq: Status: Active Protocol: Document 01/02/22 12:11 NHALL (Rec: 01/02/22 12:17 NHALL [id number]) Nutrition Notes Initial or Follow up Reassessment Current Diagnosis Diabetes,Heart Failure, Respiratory Failure Other Pertinent Diagnosis Bacteremia, pneu, Bilat pleural effusion, Agitation/ anxiety Current Diet TF - Vital AF 1.2 at 45ml/hr Labs/Tests Na 131 K 3.5 BUN 27 Pertinent Medications 25% Human Albumin, Colace, Lasix, Reglan, Miralax, 40mEq KCl, Senokot, Sucralfate Height 5 ft Weight 73.3 kg [place] Body Weight (kg) 45.45 BMI 31.5 Weight change and time frame Current wt obtained from bed scale Weight Status Obese Subjective/Other Information Observed TF infusing at goal rate. Pt remains on vent support. Percent of energy/protein needs met: 100% energy 89% pro Burn Absent Trauma Absent #1 Nutrition Diagnosis Inadequate oral intake Diagnosis Progress(for reassessment Continues documentation) Is patient on ventilator? Yes Is Patient Ambulatory and/or Out of Bed No REE-([place]-confined to bed) 1338.492 Kcal/Kg value to use for calculation 17 Approximate Energy Requirements Using 1246 kcal/Kg Calculation Used for Recommendations Kcal/kg Additional Notes Pro needs 2g/kg IBW: 91g/day Fluid needs per MD. Nutrition Intervention Nutrition Support: Continue Vital AF 1.2 at 45ml/ hr with 70ml water flush q4h. Kcal 1,296 Protein (gm) 81 Carbohydrates (gm) 119 Fat (gm) 58 Fluid (mL) 876 Fiber (gm) 6 Goal #1 TF tolerance Goal #2 TF to meet at least 75% energy and pro needs Follow-Up By: 01/09/22 Additional Comments F/U: stable TF, vent status, wt
[2022-01-06 15:35] LABS: Total Cells Counted 100 /mm3
--- NOTE | 2022-01-06 15:45 | Ultrasound Report ---
ULTRASOUND-GUIDED THORACENTESIS HISTORY: Right Pleural Effusion. COMPARISON: PROCEDURE: The risks (including but not limited to bleeding, infection, and pneumothorax) and benefi ts were explained to the patient and informed consent was obtained. A time out procedure was perform ed. Ultrasound was used to evaluate the right pleural effusion and locate the optimal site for needle ent ry. Once the skin was marked, the procedure site was prepped and draped in the usual sterile fashion and lidocaine was used for local anesthesia. A 5-[place] thoracentesis catheter was placed. The pat ient was monitored closely throughout the procedure, and a total of 1200 mL of clear yellow fluid was aspirated. Samples were sent to the lab for further evaluation per the primary clinicians orders. The patient tolerated the procedure well with no complications. A post-procedure chest x-ray was imm ediately ordered. IMPRESSION: Successful ultrasound-guided right thoracentesis as described. CHEST 1 VIEW INDICATION: Right Pleural Effusion. COMPARISON: None FINDINGS: Support devices: Stable Heart: Stable mild cardiomegaly Lungs/Pleura: Near complete evacuation of the right pleural effusion is demonstrated. Mild pulmonary venous congestion and small left pleural effusion are stable. No pneumothorax. Additional findings: None. IMPRESSION: Near complete evacuation of the right pleural effusion. No pneumothorax. Signer Name: Job López Jr, MD Signed: 01/06/2022 3:40 PM Workstation Name: [id number]
[2022-01-06] MEDS: ALPRAZolam 0.25 MG TAB FEEDTUBE PRN (20:17)
[2022-01-06] MEDS: PRAVASTATIN 20 MG TAB FEEDTUBE SCH (23:14)
[2022-01-06] MEDS: MELATONIN 5 MG TAB PO SCH (23:14)
[2022-01-06] MEDS: traZODone 50 MG TAB PO SCH (23:14)
[2022-01-07] MEDS: SUCRALFATE 1 GM/10 ML ORAL LIQD FEEDTUBE SCH ×4 (06:28→23:49)
[2022-01-07] MEDS: ALPRAZolam 0.25 MG TAB FEEDTUBE PRN (06:28)
[2022-01-07] MEDS: LEVOTHYROXINE 125 MCG TAB FEEDTUBE SCH (06:28)
[2022-01-07] MEDS: ONDANSETRON 4 MG/2 ML INJ IV PRN (06:28)
[2022-01-07] MEDS: SPIRONOLACTONE 25 MG TAB FEEDTUBE SCH (09:36)
[2022-01-07] MEDS: LANSOPRAZOLE 30 MG SOLUTAB FEEDTUBE SCH ×2 (09:36→22:04)
[2022-01-07] MEDS: METOPROLOL TARTRATE 25 MG TAB FEEDTUBE SCH ×2 (09:37→22:05)
[2022-01-07] MEDS: HYDROcodone/ACETAMINOPHEN 10-325MG TAB FEEDTUBE SCH ×3 (09:37→20:30)
[2022-01-07] MEDS: POLYETHYLENE GLYCOL 3350 17 GM POWDER FEEDTUBE SCH (09:37)
[2022-01-07] MEDS: GABAPENTIN 100 MG CAP FEEDTUBE SCH (09:38)
[2022-01-07] MEDS: busPIRone 5 MG TAB FEEDTUBE SCH ×2 (09:38→22:03)
[2022-01-07] MEDS: SENNOSIDES ORAL LIQD 8.8 MG/5 ML ORAL LIQD FEEDTUBE SCH ×2 (09:38→22:03)
[2022-01-07] MEDS: QUEtiapine 25 MG TAB FEEDTUBE SCH ×2 (09:38→22:04)
[2022-01-07] MEDS: DOCUSATE SODIUM 100 MG/10 ML ORAL LIQD FEEDTUBE SCH ×2 (09:38→22:03)
[2022-01-07] MEDS: MIDODRINE 5 MG TAB FEEDTUBE SCH ×3 (09:38→16:58)
--- NOTE | 2022-01-07 13:22 | Progress Note ---
Assessment and Plan Gram positive Bacteremia (MRSA) Acute respiratory failure with hypoxia, now on MVS Acute microcytic anemia Bilateral pneumonia DVT Left pleural effusion Cardiomyopathy EF 30-35% Moderate pulmonary HTN - continue Lasix 20 mg p.o. daily re: CHF & developing anasarca - continue SBT's as tolerated - follow I's & O's and monitor electrolytes - continue daily SAT and SBT assessment as tolerated - no new issues otherwise, continue care as below; - LTAC evaluation ongoing - continue Seroquel - continue Vancomycin for MRSA bacteremia (6 weeks of therapy recommended) - prn Levophed for target MAP > 65 mmHg - continue to wean supplemental oxygen for target O2 sat's > 90% acutely - VAP bundle addressed - continue lung protective strategies - continue bronchodilators with routine trach care and pulmonary hygiene per RT - wean per pulmonary driven protocols otherwise - avoid nephrotoxins, renally dose all medications - continue accuchecks with glycemic control per SSI (While critically ill target blood glucose of 140-180 mg/dL; avoid hypoglycemia) - sedation prn for target RASS 0 to -1 - antibiotics per ID recommendations - continue to avoid benzodiazepine's, reduce the possibility of delirium - prn analgesia per CPOT score - Maintenance of sleep-wake cycle, avoid delirium - continue enteral nutritional support at goal rate as tolerated - G.I. & VTE prophylaxis - PT/OT/ROM exercises - continue mobility protocols for pressure ulcer prophylaxis - Monitor hemodynamics closely - continue other care per attending / other consultants - discharge planning ongoing concurrently COVID SPECIFIC INTERVENTIONS - COVID-19 PCR negative .... Re-evaluate in am & prn CONDITION: CRITICAL PROGNOSIS: GUARDED CODE STATUS: FULL CODE The high probability of a clinically significant, sudden or life-threatening deterioration of the [respiratory, cardiovascular & neurologic] system(s) required my full and direct attention, intervention and personal management. The aggregate critical care time was [33] minutes without overlap. Time includes spent on; [x] Data Review and interpretation [x] Patient assessment and monitoring of vital signs [x] Documentation [x] Medication orders and management Subjective Date of service: 01/07/22 Principal diagnosis: Septic shock; AHRF; Anemia; Pneumonia; pleural effusion; HFrEF; Pulm HTN Interval history: Patient is seen today for: Septic shock; Acute hypoxemic respiratory failure; Anemia; Bilateral pneumonia; Left pleural effusion; HFrEF 30-35%; Pulm HTN RVSP 49 Seen and examined at bedside; 24hour events reviewed; nursing and respiratory care staff consulted; no adverse overnight events reported to me; resting in bed; tolerating SBT a little better today but still low lung volumes; no emesis or overt aspiration; started on lasix Objective Vital Signs - 12hr 01/07/22 01/07/22 01/07/22 02:00 03:00 04:00 Temperature 98.0 F Pulse Rate 60 60 62 Pulse Rate [ From Monitor] Respiratory 15 26 H 18 Rate Blood Pressure 116/52 113/47 114/48 O2 Sat by Pulse 100 100 100 Oximetry O2 Sat by Pulse Oximetry [ Assessment] 01/07/22 01/07/22 01/07/22 04:41 04:50 05:00 Temperature Pulse Rate 62 72 Pulse Rate [ From Monitor] Respiratory 32 H Rate Blood Pressure 114/48 129/60 O2 Sat by Pulse 100 100 Oximetry O2 Sat by Pulse 100 Oximetry [ Assessment] 01/07/22 01/07/22 01/07/22 06:00 07:00 07:19 Temperature 97.8 F Pulse Rate 65 64 Pulse Rate [ 65 From Monitor] Respiratory 11 L 14 Rate Blood Pressure 102/66 112/62 O2 Sat by Pulse 100 100 Oximetry O2 Sat by Pulse Oximetry [ Assessment] 01/07/22 01/07/22 01/07/22 08:00 08:50 09:00 Temperature Pulse Rate 61 65 61 Pulse Rate [ 68 From Monitor] Respiratory 14 12 Rate Blood Pressure 105/54 102/66 105/54 O2 Sat by Pulse 100 100 100 Oximetry O2 Sat by Pulse 99 Oximetry [ Assessment] 01/07/22 01/07/22 01/07/22 09:36 09:37 10:00 Temperature Pulse Rate 74 73 70 Pulse Rate [ From Monitor] Respiratory 18 20 Rate Blood Pressure 125/56 125/56 106/61 O2 Sat by Pulse 99 100 Oximetry O2 Sat by Pulse Oximetry [ Assessment] 01/07/22 01/07/22 01/07/22 11:00 11:48 12:23 Temperature 98.9 F Pulse Rate 61 61 Pulse Rate [ From Monitor] Respiratory 19 12 Rate Blood Pressure 109/49 109/49 O2 Sat by Pulse 100 100 Oximetry O2 Sat by Pulse Oximetry [ Assessment] Constitutional: alert, appears uncomfortable, other (trach to MVS, frail elderly woman with mildly increased respiratory effort at rest on MVS) Eyes: non-icteric ENT: oropharynx moist, other (+ Midline tracheostomy is clean) Neck: supple, no lymphadenopathy, no JVD Effort: mildly labored Ascultation: Bilateral: diminished breath sounds, rhonchi Percussion: Bilateral: not dull, dull (bases) Cardiovascular: regular rate and rhythm, other (S1,S2) Gastrointestinal: normoactive bowel sounds, soft, non-tender, other (distended and firm but not tense) Integumentary: normal Extremities: no cyanosis, pink and warm, pulses normal, edema Neurologic: normal mental status, non-focal exam (grossly), pupils equal and round, motor strength normal and Psychiatric: mood appropriate, affect normal CBC and BMP: 01/06/22 04:06 01/06/22 04:06 ABG, PT/INR, D-dimer: ABG ABG pH 7.479 pH Units (7.350-7.450) H 12/16/21 20:52 ABG pCO2 37.5 mm Hg 12/16/21 20:52 ABG pO2 79.3 mm Hg (80.0-90.0) L 12/16/21 20:52 ABG O2 Saturation 97.0 % (95.0-99.0) 12/16/21 20:52 PT/INR, D-dimer PT 16.9 Sec. (12.2-14.9) H 01/06/22 04:06 INR 1.23 (0.87-1.13) H 01/06/22 04:06 D-Dimer 2655.00 ng/mlDDU (0-234) H 11/11/21 04:28 Abnormal lab findings: Abnormal Labs 11/03/21 11/03/21 11/03/21 22:32 22:32 22:32 WBC 29.3 H RBC 2.93 L Hgb 6.1 L Hct 21.9 L MCV 75 L MCH 21 L MCHC 28 L RDW 19.7 H Plt Count Seg Neuts % (Manual) 97.0 H Lymphocytes % (Manual) 3.0 L Seg Neutrophils # Man 28.4 H Lymphocytes # (Manual) 0.9 L Monocytes # (Manual) PT 18.6 H INR 1.40 H D-Dimer ABG pH ABG pO2 ABG HCO3 ABG O2 Saturation ABG Base Excess ABG Hemoglobin Oxyhemoglobin Sodium Potassium Chloride Carbon Dioxide 20 L BUN 33 H Creatinine Glucose 119 H POC Glucose Lactic Acid Calcium 8.3 L Phosphorus Magnesium AST ALT Alkaline Phosphatase Lactate Dehydrogenase Troponin T 0.035 H C-Reactive Protein NT-Pro-B Natriuret Pep Total Protein Albumin LDL Cholesterol Direct 34 L Vitamin B12 Vancomycin Trough Crossmatch 11/03/21 11/03/21 11/03/21 22:32 22:32 23:57 WBC RBC Hgb Hct MCV MCH MCHC RDW Plt Count Seg Neuts % (Manual) Lymphocytes % (Manual) Seg Neutrophils # Man Lymphocytes # (Manual) Monocytes # (Manual) PT INR D-Dimer ABG pH ABG pO2 ABG HCO3 ABG O2 Saturation ABG Base Excess ABG Hemoglobin Oxyhemoglobin Sodium Potassium Chloride Carbon Dioxide BUN Creatinine Glucose POC Glucose Lactic Acid 3.70 H* Calcium Phosphorus Magnesium AST ALT Alkaline Phosphatase 139 H Lactate Dehydrogenase Troponin T C-Reactive Protein NT-Pro-B Natriuret Pep 7895 H Total Protein Albumin 3.5 L LDL Cholesterol Direct Vitamin B12 Vancomycin Trough Crossmatch See Detail 11/04/21 11/04/21 11/05/21 00:59 13:58 00:51 WBC 27.9 H RBC 3.28 L Hgb 7.3 L Hct 25.5 L MCV 78 L MCH 22 L MCHC 29 L RDW 19.1 H Plt Count Seg Neuts % (Manual) 96.0 H Lymphocytes % (Manual) 2.0 L Seg Neutrophils # Man 26.8 H Lymphocytes # (Manual) 0.6 L Monocytes # (Manual) PT INR D-Dimer ABG pH ABG pO2 ABG HCO3 ABG O2 Saturation ABG Base Excess ABG Hemoglobin Oxyhemoglobin Sodium Potassium Chloride Carbon Dioxide BUN Creatinine Glucose POC Glucose Lactic Acid Calcium Phosphorus Magnesium AST ALT Alkaline Phosphatase Lactate Dehydrogenase Troponin T 0.051 H D 0.032 H D C-Reactive Protein NT-Pro-B Natriuret Pep Total Protein Albumin LDL Cholesterol Direct Vitamin B12 Vancomycin Trough Crossmatch 11/05/21 11/05/21 11/05/21 06:11 06:11 06:11 WBC 31.8 H RBC 3.57 L Hgb 8.0 L Hct 27.7 L MCV 78 L MCH 22 L MCHC 29 L RDW 19.2 H Plt Count Seg Neuts % (Manual) 91.0 H Lymphocytes % (Manual) 4.5 L Seg Neutrophils # Man 28.9 H Lymphocytes # (Manual) Monocytes # (Manual) 1.1 H PT INR D-Dimer 1494.53 H ABG pH ABG pO2 ABG HCO3 ABG O2 Saturation ABG Base Excess ABG Hemoglobin Oxyhemoglobin Sodium Potassium Chloride Carbon Dioxide 19 L BUN 42 H Creatinine Glucose 115 H POC Glucose Lactic Acid Calcium Phosphorus Magnesium AST 43 H ALT Alkaline Phosphatase Lactate Dehydrogenase 187 H Troponin T C-Reactive Protein 22.20 H NT-Pro-B Natriuret Pep Total Protein 6.0 L Albumin 3.2 L LDL Cholesterol Direct Vitamin B12 Vancomycin Trough Crossmatch 11/05/21 11/05/21 11/06/21 06:11 12:15 00:30 WBC RBC Hgb Hct MCV MCH MCHC RDW Plt Count Seg Neuts % (Manual) Lymphocytes % (Manual) Seg Neutrophils # Man Lymphocytes # (Manual) Monocytes # (Manual) PT INR D-Dimer ABG pH ABG pO2 ABG HCO3 ABG O2 Saturation ABG Base Excess ABG Hemoglobin Oxyhemoglobin Sodium Potassium Chloride Carbon Dioxide BUN Creatinine Glucose POC Glucose 113 H 69 L Lactic Acid Calcium Phosphorus Magnesium AST ALT Alkaline Phosphatase Lactate Dehydrogenase Troponin T 0.033 H C-Reactive Protein NT-Pro-B Natriuret Pep Total Protein Albumin LDL Cholesterol Direct Vitamin B12 Vancomycin Trough Crossmatch 11/06/21 11/06/21 11/06/21 05:50 15:50 15:50 WBC 25.5 H RBC 3.62 L Hgb 8.0 L Hct 27.5 L MCV 76 L MCH 22 L MCHC 29 L RDW 19.6 H Plt Count Seg Neuts % (Manual) 92.0 H Lymphocytes % (Manual) 5.0 L Seg Neutrophils # Man 23.5 H Lymphocytes # (Manual) Monocytes # (Manual) PT INR D-Dimer ABG pH 7.305 L ABG pO2 ABG HCO3 15.8 L ABG O2 Saturation ABG Base Excess -9.6 L ABG Hemoglobin 8.6 L Oxyhemoglobin 94.6 L Sodium Potassium Chloride 113.9 H Carbon Dioxide 17 L BUN 56 H Creatinine Glucose 114 H POC Glucose Lactic Acid Calcium 7.9 L Phosphorus Magnesium AST 1410 H ALT 934 H Alkaline Phosphatase 142 H Lactate Dehydrogenase Troponin T C-Reactive Protein NT-Pro-B Natriuret Pep Total Protein 5.0 L Albumin 2.6 L LDL Cholesterol Direct Vitamin B12 Vancomycin Trough Crossmatch 11/07/21 11/07/21 11/07/21 03:30 04:50 08:07 WBC RBC Hgb Hct MCV MCH MCHC RDW Plt Count Seg Neuts % (Manual) Lymphocytes % (Manual) Seg Neutrophils # Man Lymphocytes # (Manual) Monocytes # (Manual) PT INR D-Dimer ABG pH ABG pO2 296.9 H ABG HCO3 18.1 L ABG O2 Saturation 99.5 H ABG Base Excess -5.9 L ABG Hemoglobin 7.6 L Oxyhemoglobin Sodium Potassium Chloride Carbon Dioxide BUN Creatinine Glucose POC Glucose 106 H 108 H Lactic Acid Calcium Phosphorus Magnesium AST ALT Alkaline Phosphatase Lactate Dehydrogenase Troponin T C-Reactive Protein NT-Pro-B Natriuret Pep Total Protein Albumin LDL Cholesterol Direct Vitamin B12 Vancomycin Trough Crossmatch 11/08/21 11/08/21 11/08/21 03:10 18:05 23:43 WBC RBC Hgb Hct MCV MCH MCHC RDW Plt Count Seg Neuts % (Manual) Lymphocytes % (Manual) Seg Neutrophils # Man Lymphocytes # (Manual) Monocytes # (Manual) PT INR D-Dimer ABG pH ABG pO2 127.4 H ABG HCO3 ABG O2 Saturation ABG Base Excess -3.4 L ABG Hemoglobin 7.4 L Oxyhemoglobin Sodium Potassium Chloride Carbon Dioxide BUN Creatinine Glucose POC Glucose 113 H 141 H Lactic Acid Calcium Phosphorus Magnesium AST ALT Alkaline Phosphatase Lactate Dehydrogenase Troponin T C-Reactive Protein NT-Pro-B Natriuret Pep Total Protein Albumin LDL Cholesterol Direct Vitamin B12 Vancomycin Trough Crossmatch 11/08/21 11/08/21 11/09/21 Unknown Unknown 02:00 WBC 14.5 H RBC 3.35 L Hgb 7.5 L 8.1 L Hct 25.4 L 27.6 L MCV 76 L 76 L MCH 23 L 22 L MCHC RDW 19.9 H 19.9 H Plt Count Seg Neuts % (Manual) Lymphocytes % (Manual) Seg Neutrophils # Man Lymphocytes # (Manual) Monocytes # (Manual) PT INR D-Dimer ABG pH ABG pO2 ABG HCO3 ABG O2 Saturation ABG Base Excess ABG Hemoglobin Oxyhemoglobin Sodium 154 H D Potassium 3.3 L Chloride 120.7 H Carbon Dioxide 20 L BUN 38 H Creatinine Glucose POC Glucose Lactic Acid Calcium 8.3 L Phosphorus Magnesium AST ALT Alkaline Phosphatase Lactate Dehydrogenase Troponin T C-Reactive Protein NT-Pro-B Natriuret Pep Total Protein Albumin LDL Cholesterol Direct Vitamin B12 Vancomycin Trough Crossmatch 11/09/21 11/09/21 11/09/21 02:00 02:31 05:12 WBC RBC Hgb Hct MCV MCH MCHC RDW Plt Count Seg Neuts % (Manual) Lymphocytes % (Manual) Seg Neutrophils # Man Lymphocytes # (Manual) Monocytes # (Manual) PT INR D-Dimer ABG pH 7.479 H ABG pO2 121.3 H ABG HCO3 ABG O2 Saturation ABG Base Excess ABG Hemoglobin 7.3 L Oxyhemoglobin Sodium Potassium Chloride 112.5 H Carbon Dioxide BUN 33 H Creatinine Glucose 161 H POC Glucose 135 H Lactic Acid Calcium Phosphorus Magnesium AST 251 H ALT 481 H Alkaline Phosphatase Lactate Dehydrogenase Troponin T C-Reactive Protein NT-Pro-B Natriuret Pep Total Protein 5.0 L Albumin 2.8 L LDL Cholesterol Direct Vitamin B12 Vancomycin Trough Crossmatch 11/09/21 11/09/21 11/09/21 11:33 16:32 23:28 WBC RBC Hgb Hct MCV MCH MCHC RDW Plt Count Seg Neuts % (Manual) Lymphocytes % (Manual) Seg Neutrophils # Man Lymphocytes # (Manual) Monocytes # (Manual) PT INR D-Dimer ABG pH ABG pO2 ABG HCO3 ABG O2 Saturation ABG Base Excess ABG Hemoglobin Oxyhemoglobin Sodium Potassium Chloride Carbon Dioxide BUN Creatinine Glucose POC Glucose 132 H 133 H 143 H Lactic Acid Calcium Phosphorus Magnesium AST ALT Alkaline Phosphatase Lactate Dehydrogenase Troponin T C-Reactive Protein NT-Pro-B Natriuret Pep Total Protein Albumin LDL Cholesterol Direct Vitamin B12 Vancomycin Trough Crossmatch 11/10/21 11/10/21 11/10/21 04:00 04:00 05:35 WBC 16.0 H RBC 3.61 L Hgb 8.0 L Hct 27.1 L MCV 75 L MCH 22 L MCHC RDW 20.4 H Plt Count Seg Neuts % (Manual) Lymphocytes % (Manual) Seg Neutrophils # Man Lymphocytes # (Manual) Monocytes # (Manual) PT INR D-Dimer ABG pH ABG pO2 ABG HCO3 ABG O2 Saturation ABG Base Excess ABG Hemoglobin Oxyhemoglobin Sodium 149 H Potassium Chloride 114.1 H Carbon Dioxide BUN 31 H Creatinine Glucose 148 H POC Glucose 132 H Lactic Acid Calcium 8.2 L Phosphorus Magnesium AST ALT Alkaline Phosphatase Lactate Dehydrogenase Troponin T C-Reactive Protein NT-Pro-B Natriuret Pep Total Protein Albumin LDL Cholesterol Direct Vitamin B12 Vancomycin Trough Crossmatch 11/10/21 11/10/21 11/10/21 11:31 14:08 15:35 WBC RBC Hgb Hct MCV MCH MCHC RDW Plt Count Seg Neuts % (Manual) Lymphocytes % (Manual) Seg Neutrophils # Man Lymphocytes # (Manual) Monocytes # (Manual) PT INR D-Dimer ABG pH ABG pO2 126.6 H ABG HCO3 ABG O2 Saturation ABG Base Excess ABG Hemoglobin 7.4 L Oxyhemoglobin Sodium Potassium Chloride Carbon Dioxide BUN Creatinine Glucose POC Glucose 147 H Lactic Acid Calcium Phosphorus Magnesium AST ALT Alkaline Phosphatase Lactate Dehydrogenase Troponin T C-Reactive Protein NT-Pro-B Natriuret Pep Total Protein Albumin LDL Cholesterol Direct Vitamin B12 1823 H Vancomycin Trough Crossmatch 11/10/21 11/11/21 11/11/21 17:53 00:55 04:28 WBC RBC Hgb Hct MCV MCH MCHC RDW Plt Count Seg Neuts % (Manual) Lymphocytes % (Manual) Seg Neutrophils # Man Lymphocytes # (Manual) Monocytes # (Manual) PT INR D-Dimer ABG pH ABG pO2 ABG HCO3 ABG O2 Saturation ABG Base Excess ABG Hemoglobin Oxyhemoglobin Sodium 149 H Potassium Chloride 112.2 H Carbon Dioxide BUN 34 H Creatinine Glucose 148 H POC Glucose 140 H 145 H Lactic Acid Calcium 7.9 L Phosphorus Magnesium AST 53 H ALT 203 H Alkaline Phosphatase Lactate Dehydrogenase Troponin T C-Reactive Protein NT-Pro-B Natriuret Pep Total Protein 4.9 L Albumin 2.6 L LDL Cholesterol Direct Vitamin B12 Vancomycin Trough Crossmatch 11/11/21 11/11/21 11/11/21 04:28 04:28 05:28 WBC 20.9 H RBC 3.47 L Hgb 7.5 L Hct 26.0 L MCV 75 L MCH 22 L MCHC 29 L RDW 21.6 H Plt Count 132 L Seg Neuts % (Manual) Lymphocytes % (Manual) Seg Neutrophils # Man Lymphocytes # (Manual) Monocytes # (Manual) PT INR D-Dimer 2655.00 H ABG pH ABG pO2 ABG HCO3 ABG O2 Saturation ABG Base Excess ABG Hemoglobin Oxyhemoglobin Sodium Potassium Chloride Carbon Dioxide BUN Creatinine Glucose POC Glucose 154 H Lactic Acid Calcium Phosphorus Magnesium AST ALT Alkaline Phosphatase Lactate Dehydrogenase Troponin T C-Reactive Protein NT-Pro-B Natriuret Pep Total Protein Albumin LDL Cholesterol Direct Vitamin B12 Vancomycin Trough Crossmatch 11/11/21 11/11/21 11/12/21 12:38 18:13 00:14 WBC RBC Hgb Hct MCV MCH MCHC RDW Plt Count Seg Neuts % (Manual) Lymphocytes % (Manual) Seg Neutrophils # Man Lymphocytes # (Manual) Monocytes # (Manual) PT INR D-Dimer ABG pH ABG pO2 ABG HCO3 ABG O2 Saturation ABG Base Excess ABG Hemoglobin Oxyhemoglobin Sodium Potassium Chloride Carbon Dioxide BUN Creatinine Glucose POC Glucose 137 H 108 H 137 H Lactic Acid Calcium Phosphorus Magnesium AST ALT Alkaline Phosphatase Lactate Dehydrogenase Troponin T C-Reactive Protein NT-Pro-B Natriuret Pep Total Protein Albumin LDL Cholesterol Direct Vitamin B12 Vancomycin Trough Crossmatch 11/12/21 11/12/21 11/12/21 05:40 06:24 11:12 WBC RBC Hgb Hct MCV MCH MCHC RDW Plt Count Seg Neuts % (Manual) Lymphocytes % (Manual) Seg Neutrophils # Man Lymphocytes # (Manual) Monocytes # (Manual) PT INR D-Dimer ABG pH 7.586 H ABG pO2 150.6 H ABG HCO3 27.2 H ABG O2 Saturation 99.1 H ABG Base Excess 5.2 H ABG Hemoglobin 7.5 L Oxyhemoglobin Sodium Potassium Chloride Carbon Dioxide BUN Creatinine Glucose POC Glucose 132 H 140 H Lactic Acid Calcium Phosphorus Magnesium AST ALT Alkaline Phosphatase Lactate Dehydrogenase Troponin T C-Reactive Protein NT-Pro-B Natriuret Pep Total Protein Albumin LDL Cholesterol Direct Vitamin B12 Vancomycin Trough Crossmatch 11/12/21 11/12/21 11/12/21 14:50 14:50 17:13 WBC 19.8 H RBC 3.27 L Hgb 7.1 L Hct 24.5 L MCV 75 L MCH 22 L MCHC 29 L RDW 22.3 H Plt Count Seg Neuts % (Manual) Lymphocytes % (Manual) Seg Neutrophils # Man Lymphocytes # (Manual) Monocytes # (Manual) PT INR D-Dimer ABG pH ABG pO2 ABG HCO3 ABG O2 Saturation ABG Base Excess ABG Hemoglobin Oxyhemoglobin Sodium 150 H Potassium 3.3 L Chloride 112.0 H Carbon Dioxide BUN 40 H Creatinine Glucose 151 H POC Glucose 121 H Lactic Acid Calcium 7.4 L Phosphorus 1.70 L Magnesium 1.40 L AST ALT Alkaline Phosphatase Lactate Dehydrogenase Troponin T C-Reactive Protein NT-Pro-B Natriuret Pep Total Protein Albumin LDL Cholesterol Direct Vitamin B12 Vancomycin Trough Crossmatch 11/12/21 11/13/21 11/13/21 23:19 05:34 06:30 WBC RBC Hgb Hct MCV MCH MCHC RDW Plt Count Seg Neuts % (Manual) Lymphocytes % (Manual) Seg Neutrophils # Man Lymphocytes # (Manual) Monocytes # (Manual) PT INR D-Dimer ABG pH ABG pO2 ABG HCO3 ABG O2 Saturation ABG Base Excess ABG Hemoglobin Oxyhemoglobin Sodium 149 H Potassium Chloride 60.0 L Carbon Dioxide BUN 40 H Creatinine Glucose 146 H POC Glucose 113 H 132 H Lactic Acid Calcium 7.3 L Phosphorus Magnesium 2.40 H AST ALT 72 H Alkaline Phosphatase Lactate Dehydrogenase Troponin T C-Reactive Protein NT-Pro-B Natriuret Pep Total Protein 5.2 L Albumin 2.2 L LDL Cholesterol Direct Vitamin B12 Vancomycin Trough Crossmatch 11/13/21 11/13/21 11/13/21 06:30 08:30 11:19 WBC 21.2 H RBC 3.12 L Hgb 6.8 L Hct 23.2 L MCV 74 L MCH 22 L MCHC 29 L RDW 22.2 H Plt Count 135 L Seg Neuts % (Manual) Lymphocytes % (Manual) Seg Neutrophils # Man Lymphocytes # (Manual) Monocytes # (Manual) PT INR D-Dimer ABG pH ABG pO2 ABG HCO3 ABG O2 Saturation ABG Base Excess ABG Hemoglobin Oxyhemoglobin Sodium Potassium Chloride Carbon Dioxide BUN Creatinine Glucose POC Glucose 136 H Lactic Acid Calcium Phosphorus Magnesium AST ALT Alkaline Phosphatase Lactate Dehydrogenase Troponin T C-Reactive Protein NT-Pro-B Natriuret Pep Total Protein Albumin LDL Cholesterol Direct Vitamin B12 Vancomycin Trough Crossmatch See Detail 11/13/21 11/14/21 11/14/21 18:21 00:01 04:46 WBC 20.0 H RBC 3.41 L Hgb 7.9 L Hct 26.8 L MCV MCH 23 L MCHC 29 L RDW 24.0 H Plt Count Seg Neuts % (Manual) Lymphocytes % (Manual) Seg Neutrophils # Man Lymphocytes # (Manual) Monocytes # (Manual) PT INR D-Dimer ABG pH ABG pO2 ABG HCO3 ABG O2 Saturation ABG Base Excess ABG Hemoglobin Oxyhemoglobin Sodium Potassium Chloride Carbon Dioxide BUN Creatinine Glucose POC Glucose 149 H 141 H Lactic Acid Calcium Phosphorus Magnesium AST ALT Alkaline Phosphatase Lactate Dehydrogenase Troponin T C-Reactive Protein NT-Pro-B Natriuret Pep Total Protein Albumin LDL Cholesterol Direct Vitamin B12 Vancomycin Trough Crossmatch 11/14/21 11/14/21 11/14/21 04:46 05:10 11:10 WBC RBC Hgb Hct MCV MCH MCHC RDW Plt Count Seg Neuts % (Manual) Lymphocytes % (Manual) Seg Neutrophils # Man Lymphocytes # (Manual) Monocytes # (Manual) PT INR D-Dimer ABG pH ABG pO2 ABG HCO3 ABG O2 Saturation ABG Base Excess ABG Hemoglobin Oxyhemoglobin Sodium 148 H Potassium Chloride 113.1 H Carbon Dioxide BUN 43 H Creatinine Glucose 140 H POC Glucose 132 H 133 H Lactic Acid Calcium 7.5 L Phosphorus Magnesium AST ALT Alkaline Phosphatase Lactate Dehydrogenase Troponin T C-Reactive Protein NT-Pro-B Natriuret Pep Total Protein Albumin LDL Cholesterol Direct Vitamin B12 Vancomycin Trough Crossmatch 11/14/21 11/14/21 11/14/21 16:14 17:48 23:23 WBC RBC Hgb Hct MCV MCH MCHC RDW Plt Count Seg Neuts % (Manual) Lymphocytes % (Manual) Seg Neutrophils # Man Lymphocytes # (Manual) Monocytes # (Manual) PT INR D-Dimer ABG pH ABG pO2 ABG HCO3 28.0 H ABG O2 Saturation ABG Base Excess 3.1 H ABG Hemoglobin 5.8 L Oxyhemoglobin 94.8 L Sodium Potassium Chloride Carbon Dioxide BUN Creatinine Glucose POC Glucose 130 H 136 H Lactic Acid Calcium Phosphorus Magnesium AST ALT Alkaline Phosphatase Lactate Dehydrogenase Troponin T C-Reactive Protein NT-Pro-B Natriuret Pep Total Protein Albumin LDL Cholesterol Direct Vitamin B12 Vancomycin Trough Crossmatch 11/15/21 11/15/21 11/15/21 05:20 05:50 05:50 WBC 19.9 H RBC 3.50 L Hgb 8.2 L Hct 27.9 L MCV MCH 23 L MCHC 29 L RDW 24.9 H Plt Count Seg Neuts % (Manual) Lymphocytes % (Manual) Seg Neutrophils # Man Lymphocytes # (Manual) Monocytes # (Manual) PT INR D-Dimer ABG pH ABG pO2 ABG HCO3 ABG O2 Saturation ABG Base Excess ABG Hemoglobin Oxyhemoglobin Sodium 149 H Potassium Chloride 112.0 H Carbon Dioxide BUN 48 H Creatinine Glucose 152 H POC Glucose 137 H Lactic Acid Calcium 7.9 L Phosphorus Magnesium AST ALT Alkaline Phosphatase Lactate Dehydrogenase Troponin T C-Reactive Protein NT-Pro-B Natriuret Pep Total Protein Albumin LDL Cholesterol Direct Vitamin B12 Vancomycin Trough Crossmatch 11/15/21 11/15/21 11/15/21 12:12 17:07 23:24 WBC RBC Hgb Hct MCV MCH MCHC RDW Plt Count Seg Neuts % (Manual) Lymphocytes % (Manual) Seg Neutrophils # Man Lymphocytes # (Manual) Monocytes # (Manual) PT INR D-Dimer ABG pH ABG pO2 ABG HCO3 ABG O2 Saturation ABG Base Excess ABG Hemoglobin Oxyhemoglobin Sodium Potassium Chloride Carbon Dioxide BUN Creatinine Glucose POC Glucose 114 H 135 H 123 H Lactic Acid Calcium Phosphorus Magnesium AST ALT Alkaline Phosphatase Lactate Dehydrogenase Troponin T C-Reactive Protein NT-Pro-B Natriuret Pep Total Protein Albumin LDL Cholesterol Direct Vitamin B12 Vancomycin Trough Crossmatch 11/16/21 11/16/21 11/16/21 05:21 10:00 10:00 WBC 21.7 H RBC 2.57 L Hgb 6.0 L Hct 20.2 L D MCV MCH 24 L MCHC RDW 26.3 H Plt Count Seg Neuts % (Manual) Lymphocytes % (Manual) Seg Neutrophils # Man Lymphocytes # (Manual) Monocytes # (Manual) PT INR D-Dimer ABG pH ABG pO2 ABG HCO3 ABG O2 Saturation ABG Base Excess ABG Hemoglobin Oxyhemoglobin Sodium 153 H Potassium Chloride 114.9 H Carbon Dioxide BUN 74 H Creatinine Glucose 155 H POC Glucose 127 H Lactic Acid Calcium 8.1 L Phosphorus Magnesium AST ALT Alkaline Phosphatase Lactate Dehydrogenase Troponin T C-Reactive Protein NT-Pro-B Natriuret Pep Total Protein Albumin LDL Cholesterol Direct Vitamin B12 Vancomycin Trough Crossmatch 11/16/21 11/16/21 11/16/21 11:34 14:00 15:25 WBC 17.2 H RBC 2.08 L Hgb 4.7 L* Hct 16.2 L* MCV 78 L MCH 23 L MCHC 29 L RDW 26.0 H Plt Count Seg Neuts % (Manual) 87.0 H Lymphocytes % (Manual) 8.0 L Seg Neutrophils # Man 15.0 H Lymphocytes # (Manual) Monocytes # (Manual) 0.9 H PT INR D-Dimer ABG pH ABG pO2 ABG HCO3 ABG O2 Saturation ABG Base Excess ABG Hemoglobin Oxyhemoglobin Sodium Potassium Chloride Carbon Dioxide BUN Creatinine Glucose POC Glucose 131 H Lactic Acid Calcium Phosphorus Magnesium AST ALT Alkaline Phosphatase Lactate Dehydrogenase Troponin T C-Reactive Protein NT-Pro-B Natriuret Pep Total Protein Albumin LDL Cholesterol Direct Vitamin B12 Vancomycin Trough Crossmatch See Detail 11/16/21 11/16/21 11/16/21 15:25 17:21 22:43 WBC RBC Hgb 8.6 L D Hct 27.7 L D MCV MCH MCHC RDW Plt Count Seg Neuts % (Manual) Lymphocytes % (Manual) Seg Neutrophils # Man Lymphocytes # (Manual) Monocytes # (Manual) PT INR D-Dimer ABG pH ABG pO2 ABG HCO3 ABG O2 Saturation ABG Base Excess ABG Hemoglobin Oxyhemoglobin Sodium 148 H Potassium Chloride 113.2 H Carbon Dioxide BUN 84 H Creatinine Glucose 164 H POC Glucose 124 H Lactic Acid Calcium 7.6 L Phosphorus Magnesium AST ALT Alkaline Phosphatase Lactate Dehydrogenase Troponin T C-Reactive Protein NT-Pro-B Natriuret Pep Total Protein Albumin LDL Cholesterol Direct Vitamin B12 Vancomycin Trough Crossmatch 11/16/21 11/17/21 11/17/21 23:07 05:33 05:56 WBC 25.1 H RBC 3.47 L Hgb 8.7 L Hct 28.5 L MCV MCH 25 L MCHC RDW 22.3 H Plt Count Seg Neuts % (Manual) Lymphocytes % (Manual) Seg Neutrophils # Man Lymphocytes # (Manual) Monocytes # (Manual) PT INR D-Dimer ABG pH ABG pO2 ABG HCO3 ABG O2 Saturation ABG Base Excess ABG Hemoglobin Oxyhemoglobin Sodium Potassium Chloride Carbon Dioxide BUN Creatinine Glucose POC Glucose 128 H 133 H Lactic Acid Calcium Phosphorus Magnesium AST ALT Alkaline Phosphatase Lactate Dehydrogenase Troponin T C-Reactive Protein NT-Pro-B Natriuret Pep Total Protein Albumin LDL Cholesterol Direct Vitamin B12 Vancomycin Trough Crossmatch 11/17/21 11/17/21 11/17/21 05:56 11:00 11:55 WBC RBC Hgb 8.3 L Hct 26.9 L MCV MCH MCHC RDW Plt Count Seg Neuts % (Manual) Lymphocytes % (Manual) Seg Neutrophils # Man Lymphocytes # (Manual) Monocytes # (Manual) PT INR D-Dimer ABG pH ABG pO2 ABG HCO3 ABG O2 Saturation ABG Base Excess ABG Hemoglobin Oxyhemoglobin Sodium 151 H Potassium Chloride 113.6 H Carbon Dioxide BUN 85 H Creatinine Glucose 132 H POC Glucose 121 H Lactic Acid Calcium 7.8 L Phosphorus Magnesium AST ALT Alkaline Phosphatase Lactate Dehydrogenase Troponin T C-Reactive Protein NT-Pro-B Natriuret Pep Total Protein 5.1 L Albumin 2.2 L LDL Cholesterol Direct Vitamin B12 Vancomycin Trough Crossmatch 11/17/21 11/17/21 11/18/21 18:04 18:55 00:26 WBC RBC Hgb 7.5 L 7.1 L Hct 24.8 L 23.6 L MCV MCH MCHC RDW Plt Count Seg Neuts % (Manual) Lymphocytes % (Manual) Seg Neutrophils # Man Lymphocytes # (Manual) Monocytes # (Manual) PT INR D-Dimer ABG pH ABG pO2 ABG HCO3 ABG O2 Saturation ABG Base Excess ABG Hemoglobin Oxyhemoglobin Sodium Potassium Chloride Carbon Dioxide BUN Creatinine Glucose POC Glucose 144 H Lactic Acid Calcium Phosphorus Magnesium AST ALT Alkaline Phosphatase Lactate Dehydrogenase Troponin T C-Reactive Protein NT-Pro-B Natriuret Pep Total Protein Albumin LDL Cholesterol Direct Vitamin B12 Vancomycin Trough Crossmatch 11/18/21 11/18/21 11/18/21 00:43 05:10 05:10 WBC 12.5 H RBC 2.39 L Hgb 6.1 L Hct 20.2 L MCV MCH 25 L MCHC RDW 23.2 H Plt Count Seg Neuts % (Manual) Lymphocytes % (Manual) Seg Neutrophils # Man Lymphocytes # (Manual) Monocytes # (Manual) PT INR D-Dimer ABG pH ABG pO2 ABG HCO3 ABG O2 Saturation ABG Base Excess ABG Hemoglobin Oxyhemoglobin Sodium 131 L D Potassium 2.9 L* D Chloride 97.8 L Carbon Dioxide BUN 58 H Creatinine Glucose 665 H* POC Glucose 139 H Lactic Acid Calcium 7.0 L Phosphorus 2.20 L D Magnesium 1.50 L AST ALT Alkaline Phosphatase Lactate Dehydrogenase Troponin T C-Reactive Protein NT-Pro-B Natriuret Pep Total Protein Albumin LDL Cholesterol Direct Vitamin B12 Vancomycin Trough Crossmatch 11/18/21 11/18/21 11/18/21 05:23 07:10 10:45 WBC RBC Hgb Hct MCV MCH MCHC RDW Plt Count Seg Neuts % (Manual) Lymphocytes % (Manual) Seg Neutrophils # Man Lymphocytes # (Manual) Monocytes # (Manual) PT INR D-Dimer ABG pH ABG pO2 ABG HCO3 ABG O2 Saturation ABG Base Excess ABG Hemoglobin Oxyhemoglobin Sodium 148 H D Potassium 3.1 L Chloride 111.9 H Carbon Dioxide BUN 63 H Creatinine Glucose 141 H POC Glucose 124 H Lactic Acid Calcium 8.1 L D Phosphorus Magnesium AST ALT Alkaline Phosphatase Lactate Dehydrogenase Troponin T C-Reactive Protein NT-Pro-B Natriuret Pep Total Protein Albumin LDL Cholesterol Direct Vitamin B12 Vancomycin Trough Crossmatch See Detail 11/18/21 11/19/21 11/19/21 11:57 00:19 04:55 WBC RBC 3.35 L Hgb 9.0 L 8.9 L Hct 28.3 L D 28.1 L MCV MCH 27 L MCHC RDW 20.3 H Plt Count Seg Neuts % (Manual) Lymphocytes % (Manual) Seg Neutrophils # Man Lymphocytes # (Manual) Monocytes # (Manual) PT INR D-Dimer ABG pH ABG pO2 ABG HCO3 ABG O2 Saturation ABG Base Excess ABG Hemoglobin Oxyhemoglobin Sodium Potassium Chloride Carbon Dioxide BUN Creatinine Glucose POC Glucose 119 H Lactic Acid Calcium Phosphorus Magnesium AST ALT Alkaline Phosphatase Lactate Dehydrogenase Troponin T C-Reactive Protein NT-Pro-B Natriuret Pep Total Protein Albumin LDL Cholesterol Direct Vitamin B12 Vancomycin Trough Crossmatch 11/19/21 11/19/21 11/20/21 04:55 05:42 00:55 WBC RBC Hgb 9.0 L Hct 28.6 L MCV MCH MCHC RDW Plt Count Seg Neuts % (Manual) Lymphocytes % (Manual) Seg Neutrophils # Man Lymphocytes # (Manual) Monocytes # (Manual) PT INR D-Dimer ABG pH ABG pO2 ABG HCO3 ABG O2 Saturation ABG Base Excess ABG Hemoglobin Oxyhemoglobin Sodium Potassium 3.5 L Chloride 108.6 H Carbon Dioxide BUN 47 H Creatinine Glucose 207 H POC Glucose 63 L Lactic Acid Calcium 7.1 L Phosphorus Magnesium AST ALT Alkaline Phosphatase Lactate Dehydrogenase Troponin T C-Reactive Protein NT-Pro-B Natriuret Pep Total Protein Albumin LDL Cholesterol Direct Vitamin B12 Vancomycin Trough Crossmatch 11/20/21 11/20/21 11/20/21 05:40 05:40 Unknown WBC RBC 3.40 L Hgb 9.1 L Hct 28.8 L MCV MCH 27 L MCHC RDW 20.7 H Plt Count Seg Neuts % (Manual) Lymphocytes % (Manual) Seg Neutrophils # Man Lymphocytes # (Manual) Monocytes # (Manual) PT INR D-Dimer ABG pH ABG pO2 ABG HCO3 ABG O2 Saturation ABG Base Excess -2.7 L ABG Hemoglobin 9.5 L Oxyhemoglobin 94.3 L Sodium Potassium 3.5 L Chloride 108.9 H Carbon Dioxide BUN 37 H Creatinine Glucose 117 H POC Glucose Lactic Acid Calcium 7.5 L Phosphorus Magnesium AST ALT Alkaline Phosphatase Lactate Dehydrogenase Troponin T C-Reactive Protein NT-Pro-B Natriuret Pep Total Protein Albumin LDL Cholesterol Direct Vitamin B12 Vancomycin Trough Crossmatch 11/21/21 11/21/21 11/21/21 04:30 04:30 16:00 WBC RBC 3.25 L Hgb 8.6 L Hct 28.1 L MCV MCH 26 L MCHC RDW 20.7 H Plt Count Seg Neuts % (Manual) Lymphocytes % (Manual) Seg Neutrophils # Man Lymphocytes # (Manual) Monocytes # (Manual) PT INR D-Dimer ABG pH ABG pO2 114.2 H ABG HCO3 ABG O2 Saturation ABG Base Excess ABG Hemoglobin 9.1 L Oxyhemoglobin Sodium 134 L Potassium Chloride Carbon Dioxide 20 L BUN 34 H Creatinine Glucose POC Glucose Lactic Acid Calcium 7.1 L Phosphorus Magnesium AST ALT Alkaline Phosphatase Lactate Dehydrogenase Troponin T C-Reactive Protein NT-Pro-B Natriuret Pep Total Protein Albumin LDL Cholesterol Direct Vitamin B12 Vancomycin Trough Crossmatch 11/22/21 11/22/21 11/22/21 07:07 07:07 23:54 WBC RBC 3.30 L Hgb 9.0 L Hct 28.5 L MCV MCH 27 L MCHC RDW 21.0 H Plt Count Seg Neuts % (Manual) Lymphocytes % (Manual) Seg Neutrophils # Man Lymphocytes # (Manual) Monocytes # (Manual) PT INR D-Dimer ABG pH ABG pO2 ABG HCO3 ABG O2 Saturation ABG Base Excess ABG Hemoglobin Oxyhemoglobin Sodium Potassium Chloride Carbon Dioxide BUN 32 H Creatinine Glucose 106 H POC Glucose 110 H Lactic Acid Calcium 7.5 L Phosphorus Magnesium AST ALT Alkaline Phosphatase Lactate Dehydrogenase Troponin T C-Reactive Protein NT-Pro-B Natriuret Pep Total Protein Albumin LDL Cholesterol Direct Vitamin B12 Vancomycin Trough Crossmatch 11/23/21 11/23/21 11/23/21 04:38 04:38 06:01 WBC RBC 3.23 L Hgb 8.8 L Hct 28.0 L MCV MCH 27 L MCHC RDW 21.3 H Plt Count Seg Neuts % (Manual) Lymphocytes % (Manual) Seg Neutrophils # Man Lymphocytes # (Manual) Monocytes # (Manual) PT INR D-Dimer ABG pH ABG pO2 ABG HCO3 ABG O2 Saturation ABG Base Excess ABG Hemoglobin Oxyhemoglobin Sodium 136 L Potassium Chloride Carbon Dioxide 20 L BUN 32 H Creatinine Glucose 109 H POC Glucose 115 H Lactic Acid Calcium 7.7 L Phosphorus Magnesium AST ALT Alkaline Phosphatase Lactate Dehydrogenase Troponin T C-Reactive Protein NT-Pro-B Natriuret Pep Total Protein Albumin LDL Cholesterol Direct Vitamin B12 Vancomycin Trough Crossmatch 11/23/21 11/24/21 11/24/21 11:40 00:03 04:13 WBC RBC 3.18 L Hgb 8.5 L Hct 27.5 L MCV MCH 27 L MCHC RDW 21.6 H Plt Count Seg Neuts % (Manual) Lymphocytes % (Manual) Seg Neutrophils # Man Lymphocytes # (Manual) Monocytes # (Manual) PT INR D-Dimer ABG pH ABG pO2 ABG HCO3 ABG O2 Saturation ABG Base Excess ABG Hemoglobin Oxyhemoglobin Sodium Potassium Chloride Carbon Dioxide BUN Creatinine Glucose POC Glucose 117 H 111 H Lactic Acid Calcium Phosphorus Magnesium AST ALT Alkaline Phosphatase Lactate Dehydrogenase Troponin T C-Reactive Protein NT-Pro-B Natriuret Pep Total Protein Albumin LDL Cholesterol Direct Vitamin B12 Vancomycin Trough Crossmatch 11/24/21 11/24/21 11/24/21 04:13 05:30 11:10 WBC RBC Hgb Hct MCV MCH MCHC RDW Plt Count Seg Neuts % (Manual) Lymphocytes % (Manual) Seg Neutrophils # Man Lymphocytes # (Manual) Monocytes # (Manual) PT INR D-Dimer ABG pH ABG pO2 ABG HCO3 ABG O2 Saturation ABG Base Excess ABG Hemoglobin Oxyhemoglobin Sodium Potassium Chloride Carbon Dioxide BUN 31 H Creatinine Glucose 101 H POC Glucose 115 H 107 H Lactic Acid Calcium 7.7 L Phosphorus Magnesium AST ALT Alkaline Phosphatase Lactate Dehydrogenase Troponin T C-Reactive Protein NT-Pro-B Natriuret Pep Total Protein Albumin LDL Cholesterol Direct Vitamin B12 Vancomycin Trough Crossmatch 11/24/21 11/24/21 11/25/21 16:34 17:57 05:12 WBC RBC 3.11 L Hgb 8.2 L Hct 26.6 L MCV MCH 26 L MCHC RDW 21.3 H Plt Count Seg Neuts % (Manual) Lymphocytes % (Manual) Seg Neutrophils # Man Lymphocytes # (Manual) Monocytes # (Manual) PT INR D-Dimer ABG pH ABG pO2 ABG HCO3 ABG O2 Saturation ABG Base Excess ABG Hemoglobin Oxyhemoglobin Sodium Potassium Chloride Carbon Dioxide BUN Creatinine Glucose POC Glucose 115 H 110 H Lactic Acid Calcium Phosphorus Magnesium AST ALT Alkaline Phosphatase Lactate Dehydrogenase Troponin T C-Reactive Protein NT-Pro-B Natriuret Pep Total Protein Albumin LDL Cholesterol Direct Vitamin B12 Vancomycin Trough Crossmatch 11/25/21 11/25/21 11/26/21 05:12 11:20 05:00 WBC RBC 3.30 L Hgb 8.8 L Hct 28.2 L MCV MCH 27 L MCHC RDW 20.7 H Plt Count Seg Neuts % (Manual) Lymphocytes % (Manual) Seg Neutrophils # Man Lymphocytes # (Manual) Monocytes # (Manual) PT INR D-Dimer ABG pH ABG pO2 ABG HCO3 ABG O2 Saturation ABG Base Excess ABG Hemoglobin Oxyhemoglobin Sodium Potassium Chloride Carbon Dioxide BUN 32 H Creatinine Glucose 118 H POC Glucose 118 H Lactic Acid Calcium 8.2 L Phosphorus Magnesium AST ALT Alkaline Phosphatase Lactate Dehydrogenase Troponin T C-Reactive Protein NT-Pro-B Natriuret Pep Total Protein Albumin LDL Cholesterol Direct Vitamin B12 Vancomycin Trough Crossmatch 11/26/21 11/26/21 11/26/21 05:00 05:00 05:44 WBC RBC Hgb Hct MCV MCH MCHC RDW Plt Count Seg Neuts % (Manual) Lymphocytes % (Manual) Seg Neutrophils # Man Lymphocytes # (Manual) Monocytes # (Manual) PT 16.9 H INR 1.24 H D-Dimer ABG pH ABG pO2 ABG HCO3 ABG O2 Saturation ABG Base Excess ABG Hemoglobin Oxyhemoglobin Sodium Potassium Chloride Carbon Dioxide BUN 31 H Creatinine Glucose 104 H POC Glucose 110 H Lactic Acid Calcium 7.9 L Phosphorus Magnesium AST ALT Alkaline Phosphatase Lactate Dehydrogenase Troponin T C-Reactive Protein NT-Pro-B Natriuret Pep Total Protein Albumin LDL Cholesterol Direct Vitamin B12 Vancomycin Trough Crossmatch 11/26/21 11/27/21 11/27/21 23:55 07:40 07:40 WBC RBC 3.18 L Hgb 8.5 L Hct 27.0 L MCV MCH 27 L MCHC RDW 21.2 H Plt Count Seg Neuts % (Manual) Lymphocytes % (Manual) Seg Neutrophils # Man Lymphocytes # (Manual) Monocytes # (Manual) PT INR D-Dimer ABG pH ABG pO2 ABG HCO3 ABG O2 Saturation ABG Base Excess ABG Hemoglobin Oxyhemoglobin Sodium Potassium Chloride Carbon Dioxide BUN 27 H Creatinine Glucose 112 H POC Glucose 63 L Lactic Acid Calcium 7.6 L Phosphorus Magnesium AST ALT Alkaline Phosphatase Lactate Dehydrogenase Troponin T C-Reactive Protein NT-Pro-B Natriuret Pep Total Protein Albumin LDL Cholesterol Direct Vitamin B12 Vancomycin Trough Crossmatch 11/27/21 11/27/21 11/27/21 12:04 13:40 13:40 WBC RBC 3.31 L Hgb 8.7 L Hct 28.0 L MCV MCH 26 L MCHC RDW 20.7 H Plt Count Seg Neuts % (Manual) Lymphocytes % (Manual) Seg Neutrophils # Man Lymphocytes # (Manual) Monocytes # (Manual) PT INR D-Dimer ABG pH ABG pO2 ABG HCO3 ABG O2 Saturation ABG Base Excess ABG Hemoglobin Oxyhemoglobin Sodium 136 L Potassium Chloride Carbon Dioxide BUN 25 H Creatinine Glucose 127 H POC Glucose 109 H Lactic Acid Calcium 7.6 L Phosphorus Magnesium 1.40 L AST ALT Alkaline Phosphatase Lactate Dehydrogenase Troponin T C-Reactive Protein NT-Pro-B Natriuret Pep Total Protein Albumin LDL Cholesterol Direct Vitamin B12 Vancomycin Trough Crossmatch 11/27/21 11/27/21 11/28/21 17:44 23:33 12:20 WBC RBC Hgb Hct MCV MCH MCHC RDW Plt Count Seg Neuts % (Manual) Lymphocytes % (Manual) Seg Neutrophils # Man Lymphocytes # (Manual) Monocytes # (Manual) PT INR D-Dimer ABG pH ABG pO2 ABG HCO3 ABG O2 Saturation ABG Base Excess ABG Hemoglobin Oxyhemoglobin Sodium Potassium Chloride Carbon Dioxide BUN Creatinine Glucose POC Glucose 107 H 108 H 114 H Lactic Acid Calcium Phosphorus Magnesium AST ALT Alkaline Phosphatase Lactate Dehydrogenase Troponin T C-Reactive Protein NT-Pro-B Natriuret Pep Total Protein Albumin LDL Cholesterol Direct Vitamin B12 Vancomycin Trough Crossmatch 11/29/21 11/29/21 11/29/21 00:09 03:20 03:20 WBC RBC 3.05 L Hgb 8.2 L Hct 25.8 L MCV MCH 27 L MCHC RDW 20.9 H Plt Count Seg Neuts % (Manual) Lymphocytes % (Manual) Seg Neutrophils # Man Lymphocytes # (Manual) Monocytes # (Manual) PT INR D-Dimer ABG pH ABG pO2 ABG HCO3 ABG O2 Saturation ABG Base Excess ABG Hemoglobin Oxyhemoglobin Sodium 133 L Potassium Chloride Carbon Dioxide BUN 24 H Creatinine Glucose 137 H POC Glucose 134 H Lactic Acid Calcium 7.4 L Phosphorus Magnesium AST ALT Alkaline Phosphatase Lactate Dehydrogenase Troponin T C-Reactive Protein NT-Pro-B Natriuret Pep Total Protein Albumin LDL Cholesterol Direct Vitamin B12 Vancomycin Trough Crossmatch 11/29/21 11/29/21 11/29/21 05:38 11:39 17:11 WBC RBC Hgb Hct MCV MCH MCHC RDW Plt Count Seg Neuts % (Manual) Lymphocytes % (Manual) Seg Neutrophils # Man Lymphocytes # (Manual) Monocytes # (Manual) PT INR D-Dimer ABG pH ABG pO2 ABG HCO3 ABG O2 Saturation ABG Base Excess ABG Hemoglobin Oxyhemoglobin Sodium Potassium Chloride Carbon Dioxide BUN Creatinine Glucose POC Glucose 117 H 143 H 124 H Lactic Acid Calcium Phosphorus Magnesium AST ALT Alkaline Phosphatase Lactate Dehydrogenase Troponin T C-Reactive Protein NT-Pro-B Natriuret Pep Total Protein Albumin LDL Cholesterol Direct Vitamin B12 Vancomycin Trough Crossmatch 11/29/21 11/30/21 11/30/21 20:15 05:40 05:40 WBC 12.6 H RBC 3.41 L Hgb 9.1 L Hct 28.9 L MCV MCH 27 L MCHC RDW 20.4 H Plt Count Seg Neuts % (Manual) Lymphocytes % (Manual) Seg Neutrophils # Man Lymphocytes # (Manual) Monocytes # (Manual) PT INR D-Dimer ABG pH ABG pO2 ABG HCO3 ABG O2 Saturation ABG Base Excess ABG Hemoglobin Oxyhemoglobin Sodium Potassium Chloride Carbon Dioxide BUN 24 H Creatinine Glucose 131 H POC Glucose Lactic Acid Calcium 7.6 L Phosphorus Magnesium AST ALT Alkaline Phosphatase Lactate Dehydrogenase Troponin T 0.045 H C-Reactive Protein NT-Pro-B Natriuret Pep Total Protein Albumin LDL Cholesterol Direct 25 L Vitamin B12 Vancomycin Trough Crossmatch 11/30/21 11/30/21 12/01/21 11:29 16:51 05:00 WBC RBC 2.97 L Hgb 8.0 L Hct 25.0 L MCV MCH 27 L MCHC RDW 20.8 H Plt Count Seg Neuts % (Manual) Lymphocytes % (Manual) Seg Neutrophils # Man Lymphocytes # (Manual) Monocytes # (Manual) PT INR D-Dimer ABG pH ABG pO2 ABG HCO3 ABG O2 Saturation ABG Base Excess ABG Hemoglobin Oxyhemoglobin Sodium Potassium Chloride Carbon Dioxide BUN Creatinine Glucose POC Glucose 123 H 114 H Lactic Acid Calcium Phosphorus Magnesium AST ALT Alkaline Phosphatase Lactate Dehydrogenase Troponin T C-Reactive Protein NT-Pro-B Natriuret Pep Total Protein Albumin LDL Cholesterol Direct Vitamin B12 Vancomycin Trough Crossmatch 12/01/21 12/01/21 12/01/21 05:00 05:25 11:54 WBC RBC Hgb Hct MCV MCH MCHC RDW Plt Count Seg Neuts % (Manual) Lymphocytes % (Manual) Seg Neutrophils # Man Lymphocytes # (Manual) Monocytes # (Manual) PT INR D-Dimer ABG pH ABG pO2 ABG HCO3 ABG O2 Saturation ABG Base Excess ABG Hemoglobin Oxyhemoglobin Sodium 136 L Potassium Chloride Carbon Dioxide BUN 24 H Creatinine Glucose 117 H POC Glucose 108 H 107 H Lactic Acid Calcium 7.5 L Phosphorus Magnesium 1.60 L AST ALT Alkaline Phosphatase Lactate Dehydrogenase Troponin T C-Reactive Protein NT-Pro-B Natriuret Pep Total Protein Albumin LDL Cholesterol Direct Vitamin B12 Vancomycin Trough Crossmatch 12/01/21 12/02/21 12/02/21 17:40 00:07 04:20 WBC RBC 2.92 L Hgb 7.7 L Hct 24.3 L MCV MCH 26 L MCHC RDW 20.5 H Plt Count Seg Neuts % (Manual) Lymphocytes % (Manual) Seg Neutrophils # Man Lymphocytes # (Manual) Monocytes # (Manual) PT INR D-Dimer ABG pH ABG pO2 ABG HCO3 ABG O2 Saturation ABG Base Excess ABG Hemoglobin Oxyhemoglobin Sodium Potassium Chloride Carbon Dioxide BUN Creatinine Glucose POC Glucose 123 H 110 H Lactic Acid Calcium Phosphorus Magnesium AST ALT Alkaline Phosphatase Lactate Dehydrogenase Troponin T C-Reactive Protein NT-Pro-B Natriuret Pep Total Protein Albumin LDL Cholesterol Direct Vitamin B12 Vancomycin Trough Crossmatch 12/02/21 12/02/21 12/02/21 04:20 11:17 18:20 WBC RBC Hgb Hct MCV MCH MCHC RDW Plt Count Seg Neuts % (Manual) Lymphocytes % (Manual) Seg Neutrophils # Man Lymphocytes # (Manual) Monocytes # (Manual) PT INR D-Dimer ABG pH ABG pO2 ABG HCO3 ABG O2 Saturation ABG Base Excess ABG Hemoglobin Oxyhemoglobin Sodium 135 L Potassium Chloride Carbon Dioxide BUN 26 H Creatinine Glucose 121 H POC Glucose 117 H 113 H Lactic Acid Calcium 7.4 L Phosphorus Magnesium AST ALT Alkaline Phosphatase Lactate Dehydrogenase Troponin T C-Reactive Protein NT-Pro-B Natriuret Pep Total Protein Albumin LDL Cholesterol Direct Vitamin B12 Vancomycin Trough Crossmatch 12/03/21 12/03/21 12/03/21 00:12 04:00 04:00 WBC RBC 2.99 L Hgb 7.8 L Hct 24.6 L MCV MCH 26 L MCHC RDW 20.2 H Plt Count Seg Neuts % (Manual) Lymphocytes % (Manual) Seg Neutrophils # Man Lymphocytes # (Manual) Monocytes # (Manual) PT INR D-Dimer ABG pH ABG pO2 ABG HCO3 ABG O2 Saturation ABG Base Excess ABG Hemoglobin Oxyhemoglobin Sodium 136 L Potassium Chloride Carbon Dioxide BUN 27 H Creatinine Glucose 133 H POC Glucose 121 H Lactic Acid Calcium 7.5 L Phosphorus Magnesium AST ALT Alkaline Phosphatase Lactate Dehydrogenase Troponin T C-Reactive Protein NT-Pro-B Natriuret Pep Total Protein Albumin LDL Cholesterol Direct Vitamin B12 Vancomycin Trough Crossmatch 12/03/21 12/03/21 12/03/21 06:30 11:13 16:00 WBC RBC Hgb Hct MCV MCH MCHC RDW Plt Count Seg Neuts % (Manual) Lymphocytes % (Manual) Seg Neutrophils # Man Lymphocytes # (Manual) Monocytes # (Manual) PT INR D-Dimer ABG pH ABG pO2 ABG HCO3 ABG O2 Saturation ABG Base Excess ABG Hemoglobin Oxyhemoglobin Sodium Potassium Chloride Carbon Dioxide BUN Creatinine Glucose POC Glucose 129 H 125 H 125 H Lactic Acid Calcium Phosphorus Magnesium AST ALT Alkaline Phosphatase Lactate Dehydrogenase Troponin T C-Reactive Protein NT-Pro-B Natriuret Pep Total Protein Albumin LDL Cholesterol Direct Vitamin B12 Vancomycin Trough Crossmatch 12/03/21 12/04/21 12/04/21 23:32 04:00 05:36 WBC RBC Hgb Hct MCV MCH MCHC RDW Plt Count Seg Neuts % (Manual) Lymphocytes % (Manual) Seg Neutrophils # Man Lymphocytes # (Manual) Monocytes # (Manual) PT INR D-Dimer ABG pH ABG pO2 ABG HCO3 ABG O2 Saturation ABG Base Excess ABG Hemoglobin Oxyhemoglobin Sodium Potassium 3.5 L Chloride Carbon Dioxide BUN 26 H Creatinine 0.5 L Glucose 151 H POC Glucose 133 H 142 H Lactic Acid Calcium 8.3 L Phosphorus Magnesium AST ALT Alkaline Phosphatase Lactate Dehydrogenase Troponin T C-Reactive Protein NT-Pro-B Natriuret Pep Total Protein Albumin LDL Cholesterol Direct Vitamin B12 Vancomycin Trough Crossmatch 12/04/21 12/04/21 12/05/21 11:24 15:58 04:36 WBC RBC Hgb Hct MCV MCH MCHC RDW Plt Count Seg Neuts % (Manual) Lymphocytes % (Manual) Seg Neutrophils # Man Lymphocytes # (Manual) Monocytes # (Manual) PT INR D-Dimer ABG pH ABG pO2 ABG HCO3 ABG O2 Saturation ABG Base Excess ABG Hemoglobin Oxyhemoglobin Sodium Potassium Chloride Carbon Dioxide BUN 21 H Creatinine 0.5 L Glucose 119 H POC Glucose 130 H 111 H Lactic Acid Calcium 8.3 L Phosphorus Magnesium AST ALT Alkaline Phosphatase Lactate Dehydrogenase Troponin T C-Reactive Protein NT-Pro-B Natriuret Pep Total Protein Albumin LDL Cholesterol Direct Vitamin B12 Vancomycin Trough Crossmatch 12/05/21 12/05/21 12/05/21 05:15 10:40 11:12 WBC RBC 2.98 L Hgb 8.1 L Hct 24.6 L MCV MCH 27 L MCHC RDW 20.8 H Plt Count Seg Neuts % (Manual) Lymphocytes % (Manual) Seg Neutrophils # Man Lymphocytes # (Manual) Monocytes # (Manual) PT INR D-Dimer ABG pH ABG pO2 ABG HCO3 ABG O2 Saturation ABG Base Excess ABG Hemoglobin Oxyhemoglobin Sodium Potassium Chloride Carbon Dioxide BUN Creatinine Glucose POC Glucose 107 H 110 H Lactic Acid Calcium Phosphorus Magnesium AST ALT Alkaline Phosphatase Lactate Dehydrogenase Troponin T C-Reactive Protein NT-Pro-B Natriuret Pep Total Protein Albumin LDL Cholesterol Direct Vitamin B12 Vancomycin Trough Crossmatch 12/05/21 12/06/21 12/06/21 23:39 04:25 04:25 WBC RBC 2.95 L Hgb 7.9 L Hct 24.7 L MCV MCH 27 L MCHC RDW 20.9 H Plt Count Seg Neuts % (Manual) Lymphocytes % (Manual) Seg Neutrophils # Man Lymphocytes # (Manual) Monocytes # (Manual) PT INR D-Dimer ABG pH ABG pO2 ABG HCO3 ABG O2 Saturation ABG Base Excess ABG Hemoglobin Oxyhemoglobin Sodium Potassium Chloride Carbon Dioxide BUN 22 H Creatinine 0.5 L Glucose 136 H POC Glucose 118 H Lactic Acid Calcium 8.2 L Phosphorus Magnesium AST ALT Alkaline Phosphatase Lactate Dehydrogenase Troponin T C-Reactive Protein NT-Pro-B Natriuret Pep Total Protein Albumin LDL Cholesterol Direct Vitamin B12 Vancomycin Trough Crossmatch 12/06/21 12/06/21 12/07/21 05:28 11:27 04:00 WBC RBC Hgb 7.2 L Hct 21.8 L MCV MCH MCHC RDW Plt Count Seg Neuts % (Manual) Lymphocytes % (Manual) Seg Neutrophils # Man Lymphocytes # (Manual) Monocytes # (Manual) PT INR D-Dimer ABG pH ABG pO2 ABG HCO3 ABG O2 Saturation ABG Base Excess ABG Hemoglobin Oxyhemoglobin Sodium Potassium Chloride Carbon Dioxide BUN Creatinine Glucose POC Glucose 142 H 126 H Lactic Acid Calcium Phosphorus Magnesium AST ALT Alkaline Phosphatase Lactate Dehydrogenase Troponin T C-Reactive Protein NT-Pro-B Natriuret Pep Total Protein Albumin LDL Cholesterol Direct Vitamin B12 Vancomycin Trough Crossmatch 12/07/21 12/07/21 12/07/21 04:00 05:30 11:12 WBC RBC Hgb Hct MCV MCH MCHC RDW Plt Count Seg Neuts % (Manual) Lymphocytes % (Manual) Seg Neutrophils # Man Lymphocytes # (Manual) Monocytes # (Manual) PT INR D-Dimer ABG pH ABG pO2 ABG HCO3 ABG O2 Saturation ABG Base Excess ABG Hemoglobin Oxyhemoglobin Sodium Potassium Chloride Carbon Dioxide BUN 22 H Creatinine Glucose 119 H POC Glucose 121 H 124 H Lactic Acid Calcium 8.0 L Phosphorus Magnesium AST ALT Alkaline Phosphatase Lactate Dehydrogenase Troponin T C-Reactive Protein NT-Pro-B Natriuret Pep Total Protein Albumin LDL Cholesterol Direct Vitamin B12 Vancomycin Trough Crossmatch 12/08/21 12/08/21 12/08/21 04:00 04:00 05:39 WBC RBC 2.81 L Hgb 7.7 L Hct 23.5 L MCV MCH MCHC RDW 21.2 H Plt Count Seg Neuts % (Manual) Lymphocytes % (Manual) Seg Neutrophils # Man Lymphocytes # (Manual) Monocytes # (Manual) PT INR D-Dimer ABG pH ABG pO2 ABG HCO3 ABG O2 Saturation ABG Base Excess ABG Hemoglobin Oxyhemoglobin Sodium 135 L Potassium Chloride Carbon Dioxide BUN 23 H Creatinine Glucose 109 H POC Glucose 112 H Lactic Acid Calcium Phosphorus Magnesium AST ALT Alkaline Phosphatase Lactate Dehydrogenase Troponin T C-Reactive Protein NT-Pro-B Natriuret Pep Total Protein Albumin LDL Cholesterol Direct Vitamin B12 Vancomycin Trough Crossmatch 12/08/21 12/09/21 12/09/21 11:03 04:20 04:20 WBC RBC 2.67 L Hgb 7.6 L Hct 22.1 L MCV MCH MCHC RDW 20.8 H Plt Count Seg Neuts % (Manual) Lymphocytes % (Manual) Seg Neutrophils # Man Lymphocytes # (Manual) Monocytes # (Manual) PT INR D-Dimer ABG pH ABG pO2 ABG HCO3 ABG O2 Saturation ABG Base Excess ABG Hemoglobin Oxyhemoglobin Sodium 135 L Potassium Chloride 97.8 L Carbon Dioxide BUN 26 H Creatinine Glucose 119 H POC Glucose 108 H Lactic Acid Calcium 7.7 L Phosphorus Magnesium AST ALT Alkaline Phosphatase Lactate Dehydrogenase Troponin T C-Reactive Protein NT-Pro-B Natriuret Pep Total Protein Albumin LDL Cholesterol Direct Vitamin B12 Vancomycin Trough Crossmatch 12/09/21 12/10/21 12/10/21 11:26 04:33 11:12 WBC RBC Hgb Hct MCV MCH MCHC RDW Plt Count Seg Neuts % (Manual) Lymphocytes % (Manual) Seg Neutrophils # Man Lymphocytes # (Manual) Monocytes # (Manual) PT INR D-Dimer ABG pH ABG pO2 ABG HCO3 ABG O2 Saturation ABG Base Excess ABG Hemoglobin Oxyhemoglobin Sodium 136 L Potassium Chloride Carbon Dioxide BUN 27 H Creatinine Glucose 117 H POC Glucose 110 H 117 H Lactic Acid Calcium 8.2 L Phosphorus Magnesium AST ALT Alkaline Phosphatase Lactate Dehydrogenase Troponin T C-Reactive Protein NT-Pro-B Natriuret Pep Total Protein Albumin LDL Cholesterol Direct Vitamin B12 Vancomycin Trough Crossmatch 12/10/21 12/10/21 12/11/21 16:02 23:31 04:35 WBC RBC 2.57 L Hgb 7.0 L Hct 21.4 L MCV MCH 27 L MCHC RDW 21.1 H Plt Count Seg Neuts % (Manual) Lymphocytes % (Manual) Seg Neutrophils # Man Lymphocytes # (Manual) Monocytes # (Manual) PT INR D-Dimer ABG pH ABG pO2 ABG HCO3 ABG O2 Saturation ABG Base Excess ABG Hemoglobin Oxyhemoglobin Sodium Potassium Chloride Carbon Dioxide BUN Creatinine Glucose POC Glucose 137 H 111 H Lactic Acid Calcium Phosphorus Magnesium AST ALT Alkaline Phosphatase Lactate Dehydrogenase Troponin T C-Reactive Protein NT-Pro-B Natriuret Pep Total Protein Albumin LDL Cholesterol Direct Vitamin B12 Vancomycin Trough Crossmatch 12/11/21 12/11/21 12/11/21 04:35 12:46 16:07 WBC RBC Hgb Hct MCV MCH MCHC RDW Plt Count Seg Neuts % (Manual) Lymphocytes % (Manual) Seg Neutrophils # Man Lymphocytes # (Manual) Monocytes # (Manual) PT INR D-Dimer ABG pH ABG pO2 ABG HCO3 ABG O2 Saturation ABG Base Excess ABG Hemoglobin Oxyhemoglobin Sodium 136 L Potassium Chloride Carbon Dioxide BUN 27 H Creatinine Glucose 112 H POC Glucose 115 H 111 H Lactic Acid Calcium 7.6 L Phosphorus Magnesium AST ALT Alkaline Phosphatase Lactate Dehydrogenase Troponin T C-Reactive Protein NT-Pro-B Natriuret Pep Total Protein Albumin LDL Cholesterol Direct Vitamin B12 Vancomycin Trough Crossmatch 12/11/21 12/12/21 12/12/21 23:42 04:30 04:30 WBC RBC 2.60 L Hgb 7.1 L Hct 21.5 L MCV MCH 27 L MCHC RDW 20.3 H Plt Count Seg Neuts % (Manual) Lymphocytes % (Manual) Seg Neutrophils # Man Lymphocytes # (Manual) Monocytes # (Manual) PT INR D-Dimer ABG pH ABG pO2 ABG HCO3 ABG O2 Saturation ABG Base Excess ABG Hemoglobin Oxyhemoglobin Sodium 135 L Potassium Chloride 97.9 L Carbon Dioxide BUN 26 H Creatinine 0.5 L Glucose 138 H POC Glucose 115 H Lactic Acid Calcium 8.2 L Phosphorus Magnesium AST ALT Alkaline Phosphatase Lactate Dehydrogenase Troponin T C-Reactive Protein NT-Pro-B Natriuret Pep Total Protein Albumin LDL Cholesterol Direct Vitamin B12 Vancomycin Trough Crossmatch 12/12/21 12/12/21 12/12/21 04:30 05:10 11:51 WBC RBC Hgb Hct MCV MCH MCHC RDW Plt Count Seg Neuts % (Manual) Lymphocytes % (Manual) Seg Neutrophils # Man Lymphocytes # (Manual) Monocytes # (Manual) PT INR D-Dimer ABG pH ABG pO2 ABG HCO3 ABG O2 Saturation ABG Base Excess ABG Hemoglobin Oxyhemoglobin Sodium Potassium Chloride Carbon Dioxide BUN Creatinine Glucose POC Glucose 119 H 119 H Lactic Acid Calcium Phosphorus Magnesium AST ALT Alkaline Phosphatase Lactate Dehydrogenase Troponin T C-Reactive Protein NT-Pro-B Natriuret Pep Total Protein Albumin LDL Cholesterol Direct Vitamin B12 Vancomycin Trough Crossmatch See Detail 12/13/21 12/13/21 12/13/21 00:52 04:00 04:00 WBC RBC 2.73 L Hgb 7.4 L Hct 22.8 L MCV MCH 27 L MCHC RDW 20.5 H Plt Count Seg Neuts % (Manual) Lymphocytes % (Manual) Seg Neutrophils # Man Lymphocytes # (Manual) Monocytes # (Manual) PT INR D-Dimer ABG pH ABG pO2 ABG HCO3 ABG O2 Saturation ABG Base Excess ABG Hemoglobin Oxyhemoglobin Sodium 134 L Potassium Chloride 96.7 L Carbon Dioxide BUN 23 H Creatinine 0.5 L Glucose 131 H POC Glucose 131 H Lactic Acid Calcium 8.1 L Phosphorus Magnesium AST ALT Alkaline Phosphatase Lactate Dehydrogenase Troponin T C-Reactive Protein NT-Pro-B Natriuret Pep Total Protein Albumin LDL Cholesterol Direct Vitamin B12 Vancomycin Trough Crossmatch 12/13/21 12/13/21 12/13/21 05:23 12:11 17:18 WBC RBC Hgb Hct MCV MCH MCHC RDW Plt Count Seg Neuts % (Manual) Lymphocytes % (Manual) Seg Neutrophils # Man Lymphocytes # (Manual) Monocytes # (Manual) PT INR D-Dimer ABG pH ABG pO2 ABG HCO3 ABG O2 Saturation ABG Base Excess ABG Hemoglobin Oxyhemoglobin Sodium Potassium Chloride Carbon Dioxide BUN Creatinine Glucose POC Glucose 121 H 143 H 148 H Lactic Acid Calcium Phosphorus Magnesium AST ALT Alkaline Phosphatase Lactate Dehydrogenase Troponin T C-Reactive Protein NT-Pro-B Natriuret Pep Total Protein Albumin LDL Cholesterol Direct Vitamin B12 Vancomycin Trough Crossmatch 12/14/21 12/14/21 12/14/21 00:54 04:20 04:20 WBC RBC 2.39 L Hgb 6.5 L Hct 20.3 L MCV MCH 27 L MCHC RDW 20.3 H Plt Count Seg Neuts % (Manual) Lymphocytes % (Manual) Seg Neutrophils # Man Lymphocytes # (Manual) Monocytes # (Manual) PT INR D-Dimer ABG pH ABG pO2 ABG HCO3 ABG O2 Saturation ABG Base Excess ABG Hemoglobin Oxyhemoglobin Sodium 130 L Potassium Chloride 93.5 L Carbon Dioxide BUN 25 H Creatinine Glucose 123 H POC Glucose 123 H Lactic Acid Calcium 8.0 L Phosphorus Magnesium AST ALT Alkaline Phosphatase Lactate Dehydrogenase Troponin T C-Reactive Protein NT-Pro-B Natriuret Pep Total Protein Albumin LDL Cholesterol Direct Vitamin B12 Vancomycin Trough Crossmatch 12/14/21 12/14/21 12/14/21 05:06 08:17 10:30 WBC RBC Hgb Hct MCV MCH MCHC RDW Plt Count Seg Neuts % (Manual) Lymphocytes % (Manual) Seg Neutrophils # Man Lymphocytes # (Manual) Monocytes # (Manual) PT INR D-Dimer ABG pH ABG pO2 ABG HCO3 ABG O2 Saturation ABG Base Excess ABG Hemoglobin Oxyhemoglobin Sodium Potassium Chloride Carbon Dioxide BUN Creatinine Glucose POC Glucose 131 H 119 H Lactic Acid Calcium Phosphorus Magnesium AST ALT Alkaline Phosphatase Lactate Dehydrogenase Troponin T C-Reactive Protein NT-Pro-B Natriuret Pep Total Protein Albumin LDL Cholesterol Direct Vitamin B12 Vancomycin Trough Crossmatch See Detail 12/14/21 12/14/21 12/14/21 12:15 16:37 23:27 WBC RBC Hgb Hct MCV MCH MCHC RDW Plt Count Seg Neuts % (Manual) Lymphocytes % (Manual) Seg Neutrophils # Man Lymphocytes # (Manual) Monocytes # (Manual) PT INR D-Dimer ABG pH ABG pO2 ABG HCO3 ABG O2 Saturation ABG Base Excess ABG Hemoglobin Oxyhemoglobin Sodium Potassium Chloride Carbon Dioxide BUN Creatinine Glucose POC Glucose 147 H 141 H 130 H Lactic Acid Calcium Phosphorus Magnesium AST ALT Alkaline Phosphatase Lactate Dehydrogenase Troponin T C-Reactive Protein NT-Pro-B Natriuret Pep Total Protein Albumin LDL Cholesterol Direct Vitamin B12 Vancomycin Trough Crossmatch 12/15/21 12/15/21 12/15/21 05:00 07:00 07:00 WBC 12.3 H RBC 3.27 L Hgb 8.8 L Hct 27.5 L D MCV MCH 27 L MCHC RDW 19.0 H Plt Count Seg Neuts % (Manual) Lymphocytes % (Manual) Seg Neutrophils # Man Lymphocytes # (Manual) Monocytes # (Manual) PT INR D-Dimer ABG pH ABG pO2 ABG HCO3 ABG O2 Saturation ABG Base Excess ABG Hemoglobin Oxyhemoglobin Sodium 134 L Potassium Chloride 95.7 L Carbon Dioxide BUN 28 H Creatinine Glucose 129 H POC Glucose 129 H Lactic Acid Calcium 8.2 L Phosphorus Magnesium AST ALT Alkaline Phosphatase Lactate Dehydrogenase Troponin T C-Reactive Protein NT-Pro-B Natriuret Pep Total Protein Albumin LDL Cholesterol Direct Vitamin B12 Vancomycin Trough Crossmatch 12/15/21 12/15/21 12/15/21 11:18 16:00 23:39 WBC RBC Hgb Hct MCV MCH MCHC RDW Plt Count Seg Neuts % (Manual) Lymphocytes % (Manual) Seg Neutrophils # Man Lymphocytes # (Manual) Monocytes # (Manual) PT INR D-Dimer ABG pH ABG pO2 ABG HCO3 ABG O2 Saturation ABG Base Excess ABG Hemoglobin Oxyhemoglobin Sodium Potassium Chloride Carbon Dioxide BUN Creatinine Glucose POC Glucose 139 H 137 H 146 H Lactic Acid Calcium Phosphorus Magnesium AST ALT Alkaline Phosphatase Lactate Dehydrogenase Troponin T C-Reactive Protein NT-Pro-B Natriuret Pep Total Protein Albumin LDL Cholesterol Direct Vitamin B12 Vancomycin Trough Crossmatch 12/16/21 12/16/21 12/16/21 05:24 10:21 10:21 WBC 15.3 H RBC 3.24 L Hgb 8.9 L Hct 27.7 L MCV MCH MCHC RDW 19.0 H Plt Count Seg Neuts % (Manual) Lymphocytes % (Manual) Seg Neutrophils # Man Lymphocytes # (Manual) Monocytes # (Manual) PT INR D-Dimer ABG pH ABG pO2 ABG HCO3 ABG O2 Saturation ABG Base Excess ABG Hemoglobin Oxyhemoglobin Sodium 131 L Potassium 3.5 L Chloride 92.7 L Carbon Dioxide BUN 36 H Creatinine Glucose 160 H POC Glucose 121 H Lactic Acid Calcium Phosphorus Magnesium 1.60 L AST ALT Alkaline Phosphatase Lactate Dehydrogenase Troponin T C-Reactive Protein NT-Pro-B Natriuret Pep Total Protein Albumin LDL Cholesterol Direct Vitamin B12 Vancomycin Trough Crossmatch 12/16/21 12/16/21 12/16/21 11:21 18:28 20:52 WBC RBC Hgb Hct MCV MCH MCHC RDW Plt Count Seg Neuts % (Manual) Lymphocytes % (Manual) Seg Neutrophils # Man Lymphocytes # (Manual) Monocytes # (Manual) PT INR D-Dimer ABG pH 7.479 H ABG pO2 79.3 L ABG HCO3 27.3 H ABG O2 Saturation ABG Base Excess 3.6 H ABG Hemoglobin 9.1 L Oxyhemoglobin 94.9 L Sodium Potassium Chloride Carbon Dioxide BUN Creatinine Glucose POC Glucose 153 H 132 H Lactic Acid Calcium Phosphorus Magnesium AST ALT Alkaline Phosphatase Lactate Dehydrogenase Troponin T C-Reactive Protein NT-Pro-B Natriuret Pep Total Protein Albumin LDL Cholesterol Direct Vitamin B12 Vancomycin Trough Crossmatch 12/16/21 12/17/21 12/17/21 23:30 04:25 04:25 WBC 12.3 H RBC 2.16 L Hgb 6.0 L Hct 18.1 L* D MCV MCH MCHC RDW 19.4 H Plt Count Seg Neuts % (Manual) Lymphocytes % (Manual) Seg Neutrophils # Man Lymphocytes # (Manual) Monocytes # (Manual) PT INR D-Dimer ABG pH ABG pO2 ABG HCO3 ABG O2 Saturation ABG Base Excess ABG Hemoglobin Oxyhemoglobin Sodium 132 L Potassium 3.2 L Chloride 112.0 H Carbon Dioxide BUN 32 H Creatinine Glucose 122 H POC Glucose 137 H Lactic Acid Calcium 6.8 L D Phosphorus Magnesium AST ALT Alkaline Phosphatase Lactate Dehydrogenase Troponin T C-Reactive Protein NT-Pro-B Natriuret Pep Total Protein Albumin LDL Cholesterol Direct Vitamin B12 Vancomycin Trough Crossmatch 12/17/21 12/17/21 12/17/21 05:30 11:49 14:45 WBC RBC Hgb 9.7 L D Hct MCV MCH MCHC RDW Plt Count Seg Neuts % (Manual) Lymphocytes % (Manual) Seg Neutrophils # Man Lymphocytes # (Manual) Monocytes # (Manual) PT INR D-Dimer ABG pH ABG pO2 ABG HCO3 ABG O2 Saturation ABG Base Excess ABG Hemoglobin Oxyhemoglobin Sodium Potassium Chloride Carbon Dioxide BUN Creatinine Glucose POC Glucose 137 H 143 H Lactic Acid Calcium Phosphorus Magnesium AST ALT Alkaline Phosphatase Lactate Dehydrogenase Troponin T C-Reactive Protein NT-Pro-B Natriuret Pep Total Protein Albumin LDL Cholesterol Direct Vitamin B12 Vancomycin Trough Crossmatch 12/17/21 12/18/21 12/18/21 17:01 05:04 05:04 WBC 13.8 H RBC 3.44 L Hgb 9.9 L Hct 28.8 L MCV MCH MCHC RDW 18.1 H Plt Count Seg Neuts % (Manual) Lymphocytes % (Manual) Seg Neutrophils # Man Lymphocytes # (Manual) Monocytes # (Manual) PT INR D-Dimer ABG pH ABG pO2 ABG HCO3 ABG O2 Saturation ABG Base Excess ABG Hemoglobin Oxyhemoglobin Sodium 132 L Potassium Chloride 97.4 L Carbon Dioxide BUN 38 H Creatinine Glucose 134 H POC Glucose 132 H Lactic Acid Calcium Phosphorus Magnesium AST ALT Alkaline Phosphatase Lactate Dehydrogenase Troponin T C-Reactive Protein NT-Pro-B Natriuret Pep Total Protein Albumin LDL Cholesterol Direct Vitamin B12 Vancomycin Trough Crossmatch 12/18/21 12/18/21 12/18/21 05:28 10:57 16:27 WBC RBC Hgb Hct MCV MCH MCHC RDW Plt Count Seg Neuts % (Manual) Lymphocytes % (Manual) Seg Neutrophils # Man Lymphocytes # (Manual) Monocytes # (Manual) PT INR D-Dimer ABG pH ABG pO2 ABG HCO3 ABG O2 Saturation ABG Base Excess ABG Hemoglobin Oxyhemoglobin Sodium Potassium Chloride Carbon Dioxide BUN Creatinine Glucose POC Glucose 118 H 132 H 130 H Lactic Acid Calcium Phosphorus Magnesium AST ALT Alkaline Phosphatase Lactate Dehydrogenase Troponin T C-Reactive Protein NT-Pro-B Natriuret Pep Total Protein Albumin LDL Cholesterol Direct Vitamin B12 Vancomycin Trough Crossmatch 12/19/21 12/19/21 12/19/21 00:02 04:41 04:41 WBC 16.0 H RBC 3.45 L Hgb 9.7 L Hct 29.1 L MCV MCH MCHC RDW 17.8 H Plt Count Seg Neuts % (Manual) Lymphocytes % (Manual) Seg Neutrophils # Man Lymphocytes # (Manual) Monocytes # (Manual) PT INR D-Dimer ABG pH ABG pO2 ABG HCO3 ABG O2 Saturation ABG Base Excess ABG Hemoglobin Oxyhemoglobin Sodium 133 L Potassium Chloride 97.9 L Carbon Dioxide BUN 36 H Creatinine 0.5 L Glucose 126 H POC Glucose 127 H Lactic Acid Calcium 8.3 L Phosphorus Magnesium AST ALT Alkaline Phosphatase Lactate Dehydrogenase Troponin T C-Reactive Protein NT-Pro-B Natriuret Pep Total Protein Albumin LDL Cholesterol Direct Vitamin B12 Vancomycin Trough Crossmatch 12/19/21 12/19/21 12/19/21 05:26 12:20 16:43 WBC RBC Hgb Hct MCV MCH MCHC RDW Plt Count Seg Neuts % (Manual) Lymphocytes % (Manual) Seg Neutrophils # Man Lymphocytes # (Manual) Monocytes # (Manual) PT INR D-Dimer ABG pH ABG pO2 ABG HCO3 ABG O2 Saturation ABG Base Excess ABG Hemoglobin Oxyhemoglobin Sodium Potassium Chloride Carbon Dioxide BUN Creatinine Glucose POC Glucose 119 H 145 H 126 H Lactic Acid Calcium Phosphorus Magnesium AST ALT Alkaline Phosphatase Lactate Dehydrogenase Troponin T C-Reactive Protein NT-Pro-B Natriuret Pep Total Protein Albumin LDL Cholesterol Direct Vitamin B12 Vancomycin Trough Crossmatch 12/19/21 12/20/21 12/20/21 23:30 04:54 04:54 WBC 12.3 H RBC 3.54 L Hgb 10.0 L Hct 29.5 L MCV MCH MCHC RDW 17.8 H Plt Count Seg Neuts % (Manual) 88.0 H Lymphocytes % (Manual) 6.0 L Seg Neutrophils # Man 10.8 H Lymphocytes # (Manual) 0.7 L Monocytes # (Manual) PT INR D-Dimer ABG pH ABG pO2 ABG HCO3 ABG O2 Saturation ABG Base Excess ABG Hemoglobin Oxyhemoglobin Sodium 131 L Potassium Chloride 96.2 L Carbon Dioxide BUN 36 H Creatinine 0.5 L Glucose 130 H POC Glucose 117 H Lactic Acid Calcium Phosphorus Magnesium AST ALT Alkaline Phosphatase Lactate Dehydrogenase Troponin T C-Reactive Protein NT-Pro-B Natriuret Pep Total Protein Albumin LDL Cholesterol Direct Vitamin B12 Vancomycin Trough Crossmatch 12/20/21 12/20/21 12/20/21 05:20 11:51 17:30 WBC RBC Hgb Hct MCV MCH MCHC RDW Plt Count Seg Neuts % (Manual) Lymphocytes % (Manual) Seg Neutrophils # Man Lymphocytes # (Manual) Monocytes # (Manual) PT INR D-Dimer ABG pH ABG pO2 ABG HCO3 ABG O2 Saturation ABG Base Excess ABG Hemoglobin Oxyhemoglobin Sodium Potassium Chloride Carbon Dioxide BUN Creatinine Glucose POC Glucose 126 H 119 H 127 H Lactic Acid Calcium Phosphorus Magnesium AST ALT Alkaline Phosphatase Lactate Dehydrogenase Troponin T C-Reactive Protein NT-Pro-B Natriuret Pep Total Protein Albumin LDL Cholesterol Direct Vitamin B12 Vancomycin Trough Crossmatch 12/21/21 12/21/21 12/21/21 00:45 04:21 04:21 WBC RBC 3.47 L Hgb 9.4 L Hct 29.2 L MCV MCH 27 L MCHC RDW 18.1 H Plt Count Seg Neuts % (Manual) Lymphocytes % (Manual) Seg Neutrophils # Man Lymphocytes # (Manual) Monocytes # (Manual) PT INR D-Dimer ABG pH ABG pO2 ABG HCO3 ABG O2 Saturation ABG Base Excess ABG Hemoglobin Oxyhemoglobin Sodium 134 L Potassium Chloride Carbon Dioxide BUN 35 H Creatinine 0.5 L Glucose 122 H POC Glucose 125 H Lactic Acid Calcium 8.2 L Phosphorus Magnesium AST ALT Alkaline Phosphatase Lactate Dehydrogenase Troponin T C-Reactive Protein NT-Pro-B Natriuret Pep Total Protein Albumin LDL Cholesterol Direct Vitamin B12 Vancomycin Trough Crossmatch 12/21/21 12/21/21 12/21/21 05:38 11:29 16:16 WBC RBC Hgb Hct MCV MCH MCHC RDW Plt Count Seg Neuts % (Manual) Lymphocytes % (Manual) Seg Neutrophils # Man Lymphocytes # (Manual) Monocytes # (Manual) PT INR D-Dimer ABG pH ABG pO2 ABG HCO3 ABG O2 Saturation ABG Base Excess ABG Hemoglobin Oxyhemoglobin Sodium Potassium Chloride Carbon Dioxide BUN Creatinine Glucose POC Glucose 127 H 121 H 113 H Lactic Acid Calcium Phosphorus Magnesium AST ALT Alkaline Phosphatase Lactate Dehydrogenase Troponin T C-Reactive Protein NT-Pro-B Natriuret Pep Total Protein Albumin LDL Cholesterol Direct Vitamin B12 Vancomycin Trough Crossmatch 12/22/21 12/22/21 12/23/21 04:58 04:58 06:40 WBC 11.5 H RBC 3.43 L Hgb 9.8 L Hct 28.7 L MCV MCH MCHC RDW 18.5 H 17.9 H Plt Count Seg Neuts % (Manual) Lymphocytes % (Manual) Seg Neutrophils # Man Lymphocytes # (Manual) Monocytes # (Manual) PT INR D-Dimer ABG pH ABG pO2 ABG HCO3 ABG O2 Saturation ABG Base Excess ABG Hemoglobin Oxyhemoglobin Sodium 130 L Potassium Chloride 97.8 L Carbon Dioxide BUN 31 H Creatinine 0.5 L Glucose 122 H POC Glucose Lactic Acid Calcium 7.9 L Phosphorus Magnesium AST ALT Alkaline Phosphatase Lactate Dehydrogenase Troponin T C-Reactive Protein NT-Pro-B Natriuret Pep Total Protein Albumin LDL Cholesterol Direct Vitamin B12 Vancomycin Trough Crossmatch 12/23/21 12/23/21 12/24/21 06:40 23:25 04:24 WBC 11.7 H RBC Hgb 9.8 L Hct MCV MCH 26 L MCHC RDW 18.1 H Plt Count Seg Neuts % (Manual) Lymphocytes % (Manual) Seg Neutrophils # Man Lymphocytes # (Manual) Monocytes # (Manual) PT INR D-Dimer ABG pH ABG pO2 ABG HCO3 ABG O2 Saturation ABG Base Excess ABG Hemoglobin Oxyhemoglobin Sodium 136 L Potassium Chloride Carbon Dioxide BUN 27 H Creatinine 0.4 L Glucose 107 H POC Glucose 110 H Lactic Acid Calcium 8.1 L Phosphorus Magnesium AST ALT Alkaline Phosphatase Lactate Dehydrogenase Troponin T C-Reactive Protein NT-Pro-B Natriuret Pep Total Protein Albumin LDL Cholesterol Direct Vitamin B12 Vancomycin Trough Crossmatch 12/24/21 12/24/21 12/24/21 04:24 11:08 15:45 WBC RBC Hgb Hct MCV MCH MCHC RDW Plt Count Seg Neuts % (Manual) Lymphocytes % (Manual) Seg Neutrophils # Man Lymphocytes # (Manual) Monocytes # (Manual) PT INR D-Dimer ABG pH ABG pO2 ABG HCO3 ABG O2 Saturation ABG Base Excess ABG Hemoglobin Oxyhemoglobin Sodium 132 L Potassium Chloride Carbon Dioxide BUN 27 H Creatinine 0.3 L Glucose 108 H POC Glucose 116 H 107 H Lactic Acid Calcium Phosphorus Magnesium AST ALT Alkaline Phosphatase Lactate Dehydrogenase Troponin T C-Reactive Protein NT-Pro-B Natriuret Pep Total Protein Albumin LDL Cholesterol Direct Vitamin B12 Vancomycin Trough Crossmatch 12/24/21 12/25/21 12/25/21 23:43 05:29 11:48 WBC RBC Hgb Hct MCV MCH MCHC RDW Plt Count Seg Neuts % (Manual) Lymphocytes % (Manual) Seg Neutrophils # Man Lymphocytes # (Manual) Monocytes # (Manual) PT INR D-Dimer ABG pH ABG pO2 ABG HCO3 ABG O2 Saturation ABG Base Excess ABG Hemoglobin Oxyhemoglobin Sodium Potassium Chloride Carbon Dioxide BUN Creatinine Glucose POC Glucose 123 H 107 H 119 H Lactic Acid Calcium Phosphorus Magnesium AST ALT Alkaline Phosphatase Lactate Dehydrogenase Troponin T C-Reactive Protein NT-Pro-B Natriuret Pep Total Protein Albumin LDL Cholesterol Direct Vitamin B12 Vancomycin Trough Crossmatch 12/26/21 12/26/21 12/26/21 00:06 05:56 07:51 WBC 11.4 H RBC 3.40 L Hgb 9.3 L Hct 28.3 L MCV MCH 27 L MCHC RDW 18.2 H Plt Count Seg Neuts % (Manual) Lymphocytes % (Manual) Seg Neutrophils # Man Lymphocytes # (Manual) Monocytes # (Manual) PT INR D-Dimer ABG pH ABG pO2 ABG HCO3 ABG O2 Saturation ABG Base Excess ABG Hemoglobin Oxyhemoglobin Sodium Potassium Chloride Carbon Dioxide BUN Creatinine Glucose POC Glucose 133 H 107 H Lactic Acid Calcium Phosphorus Magnesium AST ALT Alkaline Phosphatase Lactate Dehydrogenase Troponin T C-Reactive Protein NT-Pro-B Natriuret Pep Total Protein Albumin LDL Cholesterol Direct Vitamin B12 Vancomycin Trough Crossmatch 12/26/21 12/26/21 12/26/21 07:51 11:43 17:06 WBC RBC Hgb Hct MCV MCH MCHC RDW Plt Count Seg Neuts % (Manual) Lymphocytes % (Manual) Seg Neutrophils # Man Lymphocytes # (Manual) Monocytes # (Manual) PT INR D-Dimer ABG pH ABG pO2 ABG HCO3 ABG O2 Saturation ABG Base Excess ABG Hemoglobin Oxyhemoglobin Sodium 136 L Potassium Chloride Carbon Dioxide BUN 25 H Creatinine 0.3 L Glucose 131 H POC Glucose 119 H 128 H Lactic Acid Calcium Phosphorus Magnesium AST ALT Alkaline Phosphatase Lactate Dehydrogenase Troponin T C-Reactive Protein NT-Pro-B Natriuret Pep Total Protein Albumin LDL Cholesterol Direct Vitamin B12 Vancomycin Trough Crossmatch 12/28/21 12/28/21 12/29/21 09:05 09:05 04:40 WBC RBC 3.19 L Hgb 8.9 L Hct 26.4 L MCV MCH 27 L MCHC RDW 18.4 H 17.9 H Plt Count Seg Neuts % (Manual) Lymphocytes % (Manual) Seg Neutrophils # Man Lymphocytes # (Manual) Monocytes # (Manual) PT INR D-Dimer ABG pH ABG pO2 ABG HCO3 ABG O2 Saturation ABG Base Excess ABG Hemoglobin Oxyhemoglobin Sodium 135 L Potassium Chloride 97.8 L Carbon Dioxide BUN 18 H Creatinine 0.3 L Glucose POC Glucose Lactic Acid Calcium Phosphorus Magnesium AST ALT Alkaline Phosphatase Lactate Dehydrogenase Troponin T C-Reactive Protein NT-Pro-B Natriuret Pep Total Protein Albumin LDL Cholesterol Direct Vitamin B12 Vancomycin Trough Crossmatch 12/29/21 12/29/21 12/30/21 04:40 12:47 04:05 WBC RBC 3.29 L Hgb 8.7 L Hct 27.6 L MCV MCH 27 L MCHC RDW 17.6 H Plt Count Seg Neuts % (Manual) Lymphocytes % (Manual) Seg Neutrophils # Man Lymphocytes # (Manual) Monocytes # (Manual) PT INR D-Dimer ABG pH ABG pO2 ABG HCO3 ABG O2 Saturation ABG Base Excess ABG Hemoglobin Oxyhemoglobin Sodium 136 L Potassium Chloride Carbon Dioxide BUN Creatinine 0.3 L Glucose POC Glucose 67 L Lactic Acid Calcium 8.3 L Phosphorus Magnesium AST ALT Alkaline Phosphatase Lactate Dehydrogenase Troponin T C-Reactive Protein NT-Pro-B Natriuret Pep Total Protein Albumin LDL Cholesterol Direct Vitamin B12 Vancomycin Trough Crossmatch 12/30/21 12/31/21 12/31/21 04:05 00:07 04:00 WBC RBC 3.05 L Hgb 8.5 L Hct 25.5 L MCV MCH MCHC RDW 18.2 H Plt Count Seg Neuts % (Manual) Lymphocytes % (Manual) Seg Neutrophils # Man Lymphocytes # (Manual) Monocytes # (Manual) PT INR D-Dimer ABG pH ABG pO2 ABG HCO3 ABG O2 Saturation ABG Base Excess ABG Hemoglobin Oxyhemoglobin Sodium 136 L Potassium 3.5 L Chloride Carbon Dioxide BUN Creatinine 0.4 L Glucose POC Glucose 139 H Lactic Acid Calcium Phosphorus Magnesium 1.50 L AST ALT Alkaline Phosphatase Lactate Dehydrogenase Troponin T C-Reactive Protein NT-Pro-B Natriuret Pep Total Protein Albumin LDL Cholesterol Direct Vitamin B12 Vancomycin Trough Crossmatch 12/31/21 12/31/21 12/31/21 04:00 04:52 11:23 WBC RBC Hgb Hct MCV MCH MCHC RDW Plt Count Seg Neuts % (Manual) Lymphocytes % (Manual) Seg Neutrophils # Man Lymphocytes # (Manual) Monocytes # (Manual) PT INR D-Dimer ABG pH ABG pO2 ABG HCO3 ABG O2 Saturation ABG Base Excess ABG Hemoglobin Oxyhemoglobin Sodium Potassium Chloride Carbon Dioxide BUN 19 H Creatinine 0.4 L Glucose 116 H POC Glucose 121 H 116 H Lactic Acid Calcium Phosphorus Magnesium AST ALT Alkaline Phosphatase Lactate Dehydrogenase Troponin T C-Reactive Protein NT-Pro-B Natriuret Pep Total Protein Albumin LDL Cholesterol Direct Vitamin B12 Vancomycin Trough Crossmatch 12/31/21 01/01/22 01/01/22 17:42 04:31 04:31 WBC RBC 2.83 L Hgb 7.7 L Hct 23.2 L MCV MCH 27 L MCHC RDW 18.3 H Plt Count Seg Neuts % (Manual) Lymphocytes % (Manual) Seg Neutrophils # Man Lymphocytes # (Manual) Monocytes # (Manual) PT INR D-Dimer ABG pH ABG pO2 ABG HCO3 ABG O2 Saturation ABG Base Excess ABG Hemoglobin Oxyhemoglobin Sodium 135 L Potassium Chloride 97.7 L Carbon Dioxide BUN 21 H Creatinine 0.5 L Glucose 127 H POC Glucose 107 H Lactic Acid Calcium 8.0 L Phosphorus Magnesium AST ALT Alkaline Phosphatase Lactate Dehydrogenase Troponin T C-Reactive Protein NT-Pro-B Natriuret Pep Total Protein Albumin LDL Cholesterol Direct Vitamin B12 Vancomycin Trough Crossmatch 01/01/22 01/01/22 01/01/22 05:24 11:25 18:11 WBC RBC Hgb Hct MCV MCH MCHC RDW Plt Count Seg Neuts % (Manual) Lymphocytes % (Manual) Seg Neutrophils # Man Lymphocytes # (Manual) Monocytes # (Manual) PT INR D-Dimer ABG pH ABG pO2 ABG HCO3 ABG O2 Saturation ABG Base Excess ABG Hemoglobin Oxyhemoglobin Sodium Potassium Chloride Carbon Dioxide BUN Creatinine Glucose POC Glucose 124 H 140 H 144 H Lactic Acid Calcium Phosphorus Magnesium AST ALT Alkaline Phosphatase Lactate Dehydrogenase Troponin T C-Reactive Protein NT-Pro-B Natriuret Pep Total Protein Albumin LDL Cholesterol Direct Vitamin B12 Vancomycin Trough Crossmatch 01/01/22 01/02/22 01/02/22 23:26 04:01 04:01 WBC RBC 2.57 L Hgb 7.1 L Hct 21.5 L MCV MCH MCHC RDW 18.1 H Plt Count Seg Neuts % (Manual) Lymphocytes % (Manual) Seg Neutrophils # Man Lymphocytes # (Manual) Monocytes # (Manual) PT INR D-Dimer ABG pH ABG pO2 ABG HCO3 ABG O2 Saturation ABG Base Excess ABG Hemoglobin Oxyhemoglobin Sodium 131 L Potassium 3.5 L Chloride 94.8 L Carbon Dioxide BUN 27 H Creatinine Glucose 121 H POC Glucose 121 H Lactic Acid Calcium Phosphorus Magnesium AST ALT Alkaline Phosphatase Lactate Dehydrogenase Troponin T C-Reactive Protein NT-Pro-B Natriuret Pep Total Protein Albumin LDL Cholesterol Direct Vitamin B12 Vancomycin Trough Crossmatch 01/02/22 01/02/22 01/02/22 05:30 11:10 16:08 WBC RBC Hgb Hct MCV MCH MCHC RDW Plt Count Seg Neuts % (Manual) Lymphocytes % (Manual) Seg Neutrophils # Man Lymphocytes # (Manual) Monocytes # (Manual) PT INR D-Dimer ABG pH ABG pO2 ABG HCO3 ABG O2 Saturation ABG Base Excess ABG Hemoglobin Oxyhemoglobin Sodium Potassium Chloride Carbon Dioxide BUN Creatinine Glucose POC Glucose 124 H 117 H 130 H Lactic Acid Calcium Phosphorus Magnesium AST ALT Alkaline Phosphatase Lactate Dehydrogenase Troponin T C-Reactive Protein NT-Pro-B Natriuret Pep Total Protein Albumin LDL Cholesterol Direct Vitamin B12 Vancomycin Trough Crossmatch 01/02/22 01/02/22 01/03/22 17:30 23:26 04:53 WBC RBC 2.82 L Hgb 7.7 L Hct 23.4 L MCV MCH 27 L MCHC RDW 18.0 H Plt Count Seg Neuts % (Manual) Lymphocytes % (Manual) Seg Neutrophils # Man Lymphocytes # (Manual) Monocytes # (Manual) PT INR D-Dimer ABG pH ABG pO2 ABG HCO3 ABG O2 Saturation ABG Base Excess ABG Hemoglobin Oxyhemoglobin Sodium Potassium Chloride Carbon Dioxide BUN Creatinine Glucose POC Glucose 114 H Lactic Acid Calcium Phosphorus Magnesium AST ALT Alkaline Phosphatase Lactate Dehydrogenase Troponin T C-Reactive Protein NT-Pro-B Natriuret Pep Total Protein Albumin LDL Cholesterol Direct Vitamin B12 Vancomycin Trough 22.8 H Crossmatch 01/03/22 01/03/22 01/03/22 04:53 06:23 17:35 WBC RBC Hgb Hct MCV MCH MCHC RDW Plt Count Seg Neuts % (Manual) Lymphocytes % (Manual) Seg Neutrophils # Man Lymphocytes # (Manual) Monocytes # (Manual) PT INR D-Dimer ABG pH ABG pO2 ABG HCO3 ABG O2 Saturation ABG Base Excess ABG Hemoglobin Oxyhemoglobin Sodium 133 L Potassium Chloride 96.2 L Carbon Dioxide BUN 30 H Creatinine Glucose 107 H POC Glucose 122 H 107 H Lactic Acid Calcium Phosphorus Magnesium AST ALT Alkaline Phosphatase Lactate Dehydrogenase Troponin T C-Reactive Protein NT-Pro-B Natriuret Pep Total Protein Albumin LDL Cholesterol Direct Vitamin B12 Vancomycin Trough Crossmatch 01/04/22 01/04/22 01/04/22 04:00 12:32 16:45 WBC RBC Hgb Hct MCV MCH MCHC RDW Plt Count Seg Neuts % (Manual) Lymphocytes % (Manual) Seg Neutrophils # Man Lymphocytes # (Manual) Monocytes # (Manual) PT INR D-Dimer ABG pH ABG pO2 ABG HCO3 ABG O2 Saturation ABG Base Excess ABG Hemoglobin Oxyhemoglobin Sodium 132 L Potassium Chloride 92.8 L Carbon Dioxide BUN 30 H Creatinine Glucose 115 H POC Glucose 111 H 111 H Lactic Acid Calcium Phosphorus Magnesium 1.60 L AST ALT Alkaline Phosphatase Lactate Dehydrogenase Troponin T C-Reactive Protein NT-Pro-B Natriuret Pep Total Protein Albumin LDL Cholesterol Direct Vitamin B12 Vancomycin Trough Crossmatch 01/05/22 01/05/22 01/05/22 04:30 04:30 17:04 WBC RBC 3.11 L Hgb 8.4 L Hct 25.5 L MCV MCH 27 L MCHC RDW 17.6 H Plt Count Seg Neuts % (Manual) Lymphocytes % (Manual) Seg Neutrophils # Man Lymphocytes # (Manual) Monocytes # (Manual) PT INR D-Dimer ABG pH ABG pO2 ABG HCO3 ABG O2 Saturation ABG Base Excess ABG Hemoglobin Oxyhemoglobin Sodium 135 L Potassium Chloride 93.6 L Carbon Dioxide BUN 29 H Creatinine Glucose POC Glucose 67 L Lactic Acid Calcium Phosphorus Magnesium AST ALT Alkaline Phosphatase Lactate Dehydrogenase Troponin T C-Reactive Protein NT-Pro-B Natriuret Pep Total Protein Albumin LDL Cholesterol Direct Vitamin B12 Vancomycin Trough Crossmatch 01/05/22 01/06/22 01/06/22 23:27 04:06 04:06 WBC RBC 2.89 L Hgb 7.7 L Hct 23.8 L MCV MCH 27 L MCHC RDW 18.0 H Plt Count Seg Neuts % (Manual) Lymphocytes % (Manual) Seg Neutrophils # Man Lymphocytes # (Manual) Monocytes # (Manual) PT 16.9 H INR 1.23 H D-Dimer ABG pH ABG pO2 ABG HCO3 ABG O2 Saturation ABG Base Excess ABG Hemoglobin Oxyhemoglobin Sodium Potassium Chloride Carbon Dioxide BUN Creatinine Glucose POC Glucose 110 H Lactic Acid Calcium Phosphorus Magnesium AST ALT Alkaline Phosphatase Lactate Dehydrogenase Troponin T C-Reactive Protein NT-Pro-B Natriuret Pep Total Protein Albumin LDL Cholesterol Direct Vitamin B12 Vancomycin Trough Crossmatch 01/06/22 01/06/22 01/07/22 04:06 23:41 05:20 WBC RBC Hgb Hct MCV MCH MCHC RDW Plt Count Seg Neuts % (Manual) Lymphocytes % (Manual) Seg Neutrophils # Man Lymphocytes # (Manual) Monocytes # (Manual) PT INR D-Dimer ABG pH ABG pO2 ABG HCO3 ABG O2 Saturation ABG Base Excess ABG Hemoglobin Oxyhemoglobin Sodium 132 L Potassium Chloride 92.3 L Carbon Dioxide BUN 26 H Creatinine Glucose 111 H POC Glucose 120 H 111 H Lactic Acid Calcium Phosphorus Magnesium AST ALT Alkaline Phosphatase Lactate Dehydrogenase Troponin T C-Reactive Protein NT-Pro-B Natriuret Pep Total Protein Albumin LDL Cholesterol Direct Vitamin B12 Vancomycin Trough Crossmatch Chest x-ray: image reviewed (no post thoracentesis pneumothorax) Allied health notes reviewed: nursing
[2022-01-07] MEDS ORDERED: FUROSEMIDE 20 MG/2 ML INJ IV STA (13:38)
[2022-01-07] MEDS ORDERED: FUROSEMIDE 20 MG/2 ML INJ ONE (17:00)
--- NOTE | 2022-01-07 17:44 | Progress Note ---
Assessment and Plan Assessment and plan: History Interval history: This is an 82-year-old female with DM, HTN , CHB s/p PPM, CAD s/p PCI and arthritis who presented to the emergency department on 11/04 for shortness of breath ongoing for the past 3 days, cough and according to family a fever of 102.2. Upon arrival of EMS patient was found to be tachypneic and hypoxic with SPO2 of 76% on room air which later improved to 88% on nonrebreather. Work-up in the emergency department included a CXR which showed bilateral interstitial pulmonary edema with bilateral pleural effusions and bibasilar opacities, leukocytosis and anemia with a hemoglobin of 6.1. Patient was admitted to the hospitalist service with acute anemia, acute hypoxic respiratory failure, bilateral pneumonia and COVID-19 PUI with consults to pulmonology, infectious disease and later cardiology. Patient was eventually intubated in the emergency department on 11/06. Hospital Course to date: 11/04/2021: Empiric therapy with iv levaquin/vancomycin. COVID PCR pending. Will consult ID. PCCM consulted, will follow recs. Hypotensive this AM, ordered bolus and fluids at 150 cc/hr. May require pressor support if bp does not improve. 11/05/2021: GBS on bcx +, currently on rocephin IV. Currently on bipap due to respiratory distress overnight. Worsening BL opacities on CXR. May be volume overload vs pneumonia. Unfortunately bp too low for lasix at this point. WIll continue levophed and bipap. Once able to tolerate, may do trial of albumin/lasix. Call attempt made to Niraj, no response. Will try again tomorrow to update. 11/06/2021: Decompensated overnight requiring intubation. CXR shows worsening interstitial infiltrates. Currenlty on dopamine, levophed, vasopressin. PICC line ordered. Advised RN to place gamble for I/O monitoring. Would benefit from diuresis but very volume overloaded. Prognosis guarded 11/08: Off sedation this am, remains unresponsive only grimace to pain. Hold all sedatives agents for now, patient is off pressors this am. Hypernatremia from today's lab- D5W X1bag, and low K repleted, repeat lab in the am. Severe constipation also noted from KUB, BR added. 11/09: Sudden SPO2 drop in the 60s this am. Patient was manually bagged and deep suctioned. Patient is currently stable on the vent, repeat CXR with no significant change. D/w CCM Mucomyst and brochodilator added. Patient mentation is unchanged, continue to hold off on sedative agents. Neurology consulted. 11/10: Acute DVT noted on bilateral lower extremity Doppler ultrasound therefore she was started on Lovenox treatment dose. Failed SBT. Hypernatremia and hyperchloremia noted, free water flush adjusted. 11/11: Patient noted to be febrile with increasing of the cytosis, UA/BC sent and CXR ordered. ID escalated antibiotics to cefepime. CXR demonstrated mucous plug, bedside bronchoscopy was performed and O ETT was changed over bougie from 6 cm to 7.5. Patient was noted to have a pneumothorax postprocedure and chest tube was placed. Family updated by [facility]. Free water flush increased and will add Jaswant supplementation. 11/12: Patient not noted to follow commands, hypernatremia worsen/persist, increasing free water flush, potassium and magnesium and phosphorus repleted. Hemoglobin noted to be 7./24.5 from 7.03/12 yesterday. We will continue to trend and monitor. Vent changes per [facility]. Repeat CXR showed no residual pneumothorax. Consider waterseal tomorrow. Given persistent leukocytosis antibiotics escalated to cefepime per ID. 11/13: Remains on cefepime and vancomycin, vent changes per [facility]. Anemia noted and given 1 unit PRBC. And beta-charleen held in setting of Levophed drip infusing. Remains on fentanyl drip. 11/14: Patient put on CPAP trial by [facility], will continue chest tube until after extubation. Will rest on assist control. CT brain was cancelled by automobile mechanic radiator and reordered. 11/15: Patient removed chest tube overnight. Will obtain cxr. remains on low dose levo. CTH completed with no acute findings. RT to place on CPAP. 11/16: Hypernatremia/hyperchloremia noted on the increase of day water flushes. Anemia noted and ordered PRBC. asked RT to place on cpap but not done yet 11/17: Patient remains on the vent, awake and following commands. H&H stable s/p 2units PRBCs. GI on consult, no intervention at this time. Will continue protonix gtt and serial H&H Q6hrs. Keep patient NPO for now, D5w added for hypernatremia and NPO status. Plan for IVC filter placement today by Vascular. 11/18: Patient is s/p IVC filter. H&H continue to trend down, hbg 6.1 this am, 1 unit of PRBCs ordered. Plan for possible EGD today by GI. Keep patient NPO, continue PPI drip and serial H&H Q6hrs. Electrolytes repleted, repeat lab in the am 11/19: S/p EGD- larger duodenal ulcer noted, see operative note. GI recommendations noted also noted. H&H stable this am. Keep patient on protonix gtt for now. Will keep patient NPO, continue IVF and serial H&H for now. Electrolytes repleted, repeat labs in the am 11/20: Very agitated and restless this am, fentanyl gtt resumed. Patient remains on protonix gtt, H&H remains stable. Will switch protonix gtt to IV BID, continue carafate and okay to resume meds at this time. Will F/u with GI to see if TF can be resumed. Gamble was reinserted overnight for retention. Electrolytes repleted, repeat in the am. Plan for possible PST today for possible extubation per CCM. 11/21: Patient is now on seroquel and patient's home buspar resumed. Patient more calm this morning, fentanyl gtt is off. H&H remains stable and patient is tolerating TF. Patient had a runs of Vtach/PVCs this am, BB added per Cardio. Continue daily PS and wean trial for possible extubation. 11/22: Back on fentanyl gtt overnight , RASS o to -1, following commands. Patient failed PST this am due to increased work of breathing and low SPO2, ABG pending. Patient is also with worsen pitting edema, lasix is still on hold. Will discuss with cardio and CCM to possibly resume lasix. 11/23: MARIA DEL CARMEN overnight. Patient failed PST again this am. Per CCM plan for possible trach and PEG, hold off on IV lasix for now. General surgery consulted and family is aware of possible Trach and PEG. 11/24: Trach/PEG pending this week, continue SBT/SAT as tolerated. No acute events reported overnight. 11/25: Patient was n.p.o. overnight and will remain n.p.o. tonight for trach/PEG tomorrow morning. She failed to support trial again. KUB obtained due to distended belly. 11/26: Patient scheduled for tracheostomy and PEG tube placement today, has been n.p.o. since midnight. No acute events reported overnight. [facility] ordered simethicone scheduled. 11/27: No acute events reported overnight, patient received trach/PEG yesterday. Has been on feedings since last night. Still awaiting LTAC placement. 11/28: Patient magnesium repleted, repeat a.m. labs, SBT 11/29: Patient complains of chest pain but ECG obtained which showed no acute findings, ordered troponin. Patient failed CPAP yesterday and was trialed again today. levophed was restarted but will aggressively wean 11/30: Patient failed SBT. Continue supportive care. Started gabapentin today 12/01: MARIA DEL CARMEN overnight. Continue daily PST. Case management to arrange possible placement 12/02: Report of dark stools overnight, patient is hemodynamically stable. H&H stable, patient is on PPI. Will continue to trend H&H. Continue daily PST as tolerated. Awaiting LTAC vs SNF placement. 12/03: Hypotensive overnight, requiring low dose pressors. S/p X3 days of gentle diurese. Will continue to monitor, wean off pressors as tolerated for MAP of 65. Patient Failed PST yesterday, case management to follow up with insurance for possible LTAC placement. Continue daily PST as tolerated. PT eval and treat ordered. 12/04: Increased agitation and anxiety overnight, remains on buspar and seroquel, trazadone added to promote rest. Patient is now working with PT, keep patient engage and awake during the day so she can rest at night. No BM for over 5 days, BR was adjusted. Patient did not tolerate PST again yesterday, continue daily PST as tolerated. Continue to titrate pressor for MAP above 65. Pending possible LTAC placement, case management to arrange. 12/05: Still not getting much rest overnight, will add melatonin for sleep. Continue to engage patient during the day and promote rest at night. TF was held due to concern for possible bleeding, H&H remains stable and stools normal this am. Resume TF and continue PPI and carafate. Remains on low dose levophed, titrate as tolerated. Continue daily PST. Possible LTAC placement, awaiting approval. 12/06: MARIA DEL CARMEN overnight. Patient rested overnight. Continue supportive measures. Daily PST as tolerated. Awaiting possible LTAC placement 12/07: MARIA DEL CARMEN overnight. Plan for Tpiece trial today. Continue current supportive measures. Possible LTAC placement 12/08: Patient placed on pressure support trial again today, started on Xanax, no acute events reported overnight. Awaiting insurance approval for LTAC. 12/09: Levophed discontinued, LTAC transfer denied, started on midodrine and Lasix, ultrasound chest pending, started on Xanax 0.[address] De León updated family at bedside today. Started on Dilaudid every 3 hours as needed. 12/10: Patient placed on CPAP trial this morning, no acute events reported overnight. Will order ultrasound-guided thoracentesis. 12/11: Patient had a thoracentesis today, will decrease Xanax dosage and continue midodrine and diuresing. Patient failed CPAP today. 12/12: Patient not tolerate CPAP trials today, no acute events reported overnight 12/13: No acute events overnight. continue PSV trials as tolerated. Daughter updated at bedside 12/14: Patient noted to be anemic today, ordered gastric occult. Patient seems to be oversedated therefore Xanax changed to as needed and fentanyl patch discontinued. We will continue to monitor hyponatremia. 12/15: MARIA DEL CARMEN overnight. s/p 1unit of PRBCs, H&H stable this am, no signs of any active bleeding. Continue daily PST as tolerated. Awaiting placement. 12/16: Hypertensive this am, Midodrine decreased. Continue daily PST. MARIA DEL CARMEN overnight 12/17: Patient Hgb dropped to 6 this am, no s/s of any active bleeding, VSS. Patient received 1unit of PRBC, will continue to trend H&H. Patient was pancultured and back on IV Abx due to persistent fevers yesterday. ID is also back on the case. Continue IV Abx per ID and f/u on cultures data for sensitivity. Patient also failed PST yesterday, continue daily PST as tolerated. Electrolytes repleted, repeat labs in the am. 12/18: Patient blood cultures is growing GPC 4 out 4 bottles. PICC line D/Rivas, patient is already on IV Abx-cefepine and Vanc and ID is following. Patient remains hemodynamically stable. Daily PST as tolerated adn PRN Benzo for anxiety. 12/19: MARIA DEL CARMEN overnight. Culture data noted, continue IV Abx per ID. Orders placed for repeat Bculture. Gamble D/C overnight, patient is voiding. Check bladder scan as needed for retention. Patient failed PST again today. Continue daily PST as tolerated. 12/20: Fevers improved, Cultures +MRSA, on Vanco per ID. Repeat 2D Echo to r/o endocarditis. Patient continue to fail PST, PEEP increased to 8 today. Continue pulmonary hygiene and vent wean per CCM. Sodium tab added for hyponatremia. 12/22: Patient on pressure support trial for approximately 4 hours today, midodrine dosage increased due to hypotension. Lasix discontinued. 12/23: Started on a.m. Seroquel dose, midodrine increased to 10 mg 3 times daily, 500 mL normal saline bolus. 12/24: Seroquel dose changed (25 every morning, 75 nightly). updated at bedside by Dr. De León. CPAP trials as tolerated. Continue vancomycin. Awaiting placement. 12/25: Continue CPAP as tolerated, added gasx for distention. Continue supportive care 12/26: Patient failed PSV this AM. no acute events overnight. 12/27: GI re-consulted due to abdominal distention. No acute events reported overnight. CPAP trials as tolerated. Dr. Mckenna will get a KUB to rule out po ssible obstruction. 12/28: KUB shows no acute process, CXR shows improvement. CPAP trials as tolerat ed. 12/29: CT Abd/pelvis noted with moderated bilateral pleural effusion, anasarca, and ascites. X1dose of IV lasix administered. D/w CCM and GI orders plan for thora and paracentesis by IR. Will also start patient on aldactone Qday. Patient is tolerating trickle feeds this am, continue TF and BR adjusted for constipation. Plan of care was discussed with patient and her at the bedside. Thorough discussion on patient's overall poor prognosis and that patient will most likely be vent dependent. Patient's voiced understanding of the info given. All questions and concerns were voiced at this time. 12/30: Patient did not tolerate thoracentesis in IR yesterday due to change in LOC and hypoxia. Plan for possible bedside thoracentesis and paracentesis today. Patient remains afebrile. Patient required fdc IV abx therapy [id number] left, orders placed for a PICC. Patient remains with sign. Piting edema and anasarca, X1 does of PO Zaroxolyn and 2m of IV lasix given. Electrolytes repleted, repeat lab in the am. 12/31: Tolerated Rt. thoracentesis at the bedside yesterday, 1.4L removed. Patient remains stable on the vent this am, tolerating CPAP today PS dropped to 14. Recent CXR noted, left pleural effusion improved. Patient tolerated gentle diurese yesterday, good urine output reported. D/w CCM hold off on Left thoracentesis today, continue PO Aldactone and additonal zaroxolyn and IV lasix again today. F/u CXR in the am. 01/01: This am CXR noted with worsening bilateral pleural effusion. Patient is stable and tolerating PST this am, however PS is back up to 20 this am. BP is soft this am will hold off on IV diuretic for today, continue PO Aldactone. D/w CCM continue gentle diurese as tolerated. Will reassess in the am. Continue support care. 01/02: MARIA DEL CARMEN overnight. VSS this am, tolerating PST. X1dose of 25% IV Albumin following with 20mg IV Lasix today. Continue daily gentle diurese if hemodynamics tolerate it. Continue to monitor and replace electrolytes as needed 01/03: Abdominal distention and vomiting overnight, 600cc of gastric residual removed, TF held. KUB with no acute abnormality. Reglan added X2days, resume TF, and continue BR. Patient is tolerating PST this am. Hemodynamics remains stable, will continue gentle IV diurese. close monitoring to renal function and electrolytes. 01/04: Tolerating TF, nausea/vomiting resolved, last BM on 01/03. Continue Reglan X1 more day. Patient continue to tolerate PST. D/W CCM continue gentle diurese. F/U CXR in the am. Possible US thoracentesis tomorrow. 01/05: no acute events overnight. scheduled for thoracentesis today but procedure pushed to tomorrow. TF restarted and will be NPO post MN. 01/06: planned thoracentesis today. Working with CM for ltac/snf approval. 01/07: s/p thoracentesis 120 cc appears to have been removed. Pulm recommendations noted, agree with continued diuresis and weaning. Continued planning with CM for ltac/snf placement. Assessment and Plan Neuro : Anxiety, chronic pain -Neurology consulted, appreciate recommendations -CT brain showed no acute events -EEG interpreted as abnormal record due to diffuse slowing noted throughout the recording, suggestive of encephalopathic process and/or drug effect, possibilities of postictal state cannot be totally excluded. Clinical correlation is in order -MRI brain not obtained-> patient has metal in her body -Repeat CT head with no acute findings -Reorientation as needed -Ammonia 42, B12 1823, TSH 1.5 -BuSpar, Seroquel, Batson, gabapentin -prn xanax and Dilaudid Cardio: Acute Heart failure with reduced EF, h/o chronic heart block s/p PPM, HTN, CAD s/p PCI (2004), Moderate pulmonary HTN, cardiomyopathy -s/p vasopressor support with levophed -11/04 echocardiogram shows EF 30 to 35%, Moderate pulmonary HTN RVSP 49 -3/4 echo with 35-40% EF -Cardiology consulted, appreciate recommendations -Continue beta-charleen and statin therapy -Midodrine (titrate as needed) -Not on aspirin due to allergy -Blood pressure monitoring per protocol -As needed nitroglycerin Resp: Acute hypoxic respiratory failure secondary to bilateral pneumonia, b ilateral pleural effusion. Right pneumothorax (resolved) -COVID-19 PCR negative -Intubated on 11/06 with 6.00 ETT at 18 at the lip and changed over bougie on 11/11-7.50 ETT at 20 at the lip -See RT notes for titration -PSV as tolerated -Surgery consult for trach -Received trach/PEG on 11/26 -S/p bedside bronchoscopy on 11/11 complicated by pneumothorax -S/p chest tube placement for right pneumothorax and dislodgment by patient on 11/15 -ABG/CXR per [facility] -VAP bundle -Right chest wall ultrasound showed pleural effusion s/p chest tube -12/11 US thoracentesis removed 1L fluid -12/29 US thoracentesis removed 1.4L fluid -01/06 thoracentesis planned -SPO2 monitoring GI: S/p GI bleed, duodenal ulcer, transaminitis -GI consulted, appreciate recommendations-signed off -Nutrition consult for tube feeding -BR: Senokot -s/p peg 11/26 -H2 charleen -Carafate -24-hour +428 ml -10/2021 Gastric occult positive -> EGD-> duodenal ulcer -12/14 occult stool positive : Urinary retention (resolved), hyponatremia, hypochloremia -Strict intake and output -Trend BMP ID: Septic shock (POA-resolved), bilateral pneumonia, MRSA bacteremia/pna -Infectious disease consulted, appreciate recommendations -COVID-19 PCR negative -Presented with fevers, leukocytosis and hypotension -11/04 blood cultures positive with a group B strep bacteremia 12/19 however repeat blood cultures on the with no growth to date -Echo showed no evidence of vegetation -repeat echo showed EF 35-40 % with no vegetations -ABX therapy: IV vancomycin for 4 weeks (12/16-01/26) -Monitor WBC and fever curve -Bedside bronchoscopy for mucous plug on CXR 11/11 -f/u blood cultures Heme: Acute DVT in the right external iliac vein, common femoral vein, superior aspect of femoral vein, Acute microcytic anemia -Evidenced on bilateral upper lower extremity ultrasound -S/p 7 unit PRBC -Trend CBC -Transfuse for hemoglobin less than 7 -heparin gtt dc d/t anemia -S/p IVC filter Endo: h/o DM and hypothyroidism -Continue home Synthroid -SSI -Accu-Cheks every 6 -Avoid hypoglycemia Disposition: Denied LTAC placement by insurance, appeal denied. Awaiting subacute rehab placement The high probability of a clinically significant, sudden or life threatening deterioration of the [pulm,mental health, CV] system(s) required my full and direct attention, intervention and personal management. The aggregate critical care time was [60] minutes. This time is in addition to time spent performing reported procedures but includes the following: [x] Data Review and interpretation [x] Patient assessment and monitoring of vital signs [x] Documentation [x] Medication orders and management Disposition Plan: imcu Total Time Spent with Patient (Minutes): 60 History Interval history: Patient seen and evaluated. In no distress. Resting comfortably. Hospitalist Physical - Physical exam Narrative exam: Physical Exam: VITAL SIGNS: Reviewed. GENERAL: The patient appears normally developed, Vital signs as documented. Frail appearing elderly woman. HEAD: No signs of head trauma. EYES: Pupils are equal. Extraocular motions intact. EARS: Hearing grossly intact. MOUTH: Oropharynx is normal. NECK: No adenopathy, no JVD. CHEST: Bl rhonchi CARDIAC: Regular rate and rhythm. S1 and S2, without murmurs, gallops, or rubs. VASCULAR: No Edema. Peripheral pulses normal and equal in all extremities. ABDOMEN: Soft, non tender and non distended. No rebound or guarding, and no masses palpated. Bowel Sounds normal. MUSCULOSKELETAL: Good range of motion of all major joints. Extremities without clubbing, cyanosis or edema. NEUROLOGIC EXAM: Alert and oriented x 4. no focal sensory or strength deficits. PSYCHIATRIC: anxious appearing SKIN: detail exam as documented in skin assessment - Constitutional Vitals: Temp Pulse Resp BP Pulse Ox 99.2 F 64 28 H 121/51 99 01/07/22 16:00 01/07/22 16:00 01/07/22 15:57 01/07/22 15:57 01/07/22 16:00 General appearance: Present: no acute distress, other (Trach and on the vent) HEART Score - HEART Score Troponin: Troponin T 0.045 ng/mL (0.00-0.029) H 11/29/21 20:15 Results - Labs CBC & Chem 7: 01/06/22 04:06 01/06/22 04:06 Labs: Laboratory Last Values WBC 7.7 K/mm3 (4.5-11.0) 01/06/22 04:06 RBC 2.89 M/mm3 (3.65-5.03) L 01/06/22 04:06 Hgb 7.7 gm/dl (10.1-14.3) L 01/06/22 04:06 Hct 23.8 % (30.3-42.9) L 01/06/22 04:06 MCV 82 fl (79-97) 01/06/22 04:06 MCH 27 pg (28-32) L 01/06/22 04:06 MCHC 33 % (30-34) 01/06/22 04:06 RDW 18.0 % (13.2-15.2) H 01/06/22 04:06 Plt Count 225 K/mm3 (140-440) 01/06/22 04:06 Add Manual Diff Complete 12/20/21 04:54 Total Counted 100 12/20/21 04:54 Seg Neutrophils % Triage Specialist 11/06/21 15:50 Seg Neuts % (Manual) 88.0 % (40.0-70.0) H 12/20/21 04:54 Band Neutrophils % 0 % 12/20/21 04:54 Lymphocytes % (Manual) 6.0 % (13.4-35.0) L 12/20/21 04:54 Reactive Lymphs % (Man) 0 % 12/20/21 04:54 Monocytes % (Manual) 5.0 % (0.0-7.3) 12/20/21 04:54 Eosinophils % (Manual) 1.0 % (0.0-4.3) 12/20/21 04:54 Basophils % (Manual) 0 % (0.0-1.8) 12/20/21 04:54 Metamyelocytes % 0 % 12/20/21 04:54 Myelocytes % 0 % 12/20/21 04:54 Promyelocytes % 0 % 12/20/21 04:54 Blast Cells % 0 % 12/20/21 04:54 Nucleated RBC % Not Reportable 12/20/21 04:54 Seg Neutrophils # Man 10.8 K/mm3 (1.8-7.7) H 12/20/21 04:54 Band Neutrophils # 0.0 K/mm3 12/20/21 04:54 Lymphocytes # (Manual) 0.7 K/mm3 (1.2-5.4) L 12/20/21 04:54 Abs React Lymphs (Man) 0.0 K/mm3 12/20/21 04:54 Monocytes # (Manual) 0.6 K/mm3 (0.0-0.8) 12/20/21 04:54 Eosinophils # (Manual) 0.1 K/mm3 (0.0-0.4) 12/20/21 04:54 Basophils # (Manual) 0.0 K/mm3 (0.0-0.1) 12/20/21 04:54 Metamyelocytes # 0.0 K/mm3 12/20/21 04:54 Myelocytes # 0.0 K/mm3 12/20/21 04:54 Promyelocytes # 0.0 K/mm3 12/20/21 04:54 Blast Cells # 0.0 K/mm3 12/20/21 04:54 WBC Morphology Not Reportable 12/20/21 04:54 Hypersegmented Neuts Not Reportable 12/20/21 04:54 Hyposegmented Neuts Not Reportable 12/20/21 04:54 Hypogranular Neuts Not Reportable 12/20/21 04:54 Smudge Cells Not Reportable 12/20/21 04:54 Toxic Granulation Not Reportable 12/20/21 04:54 Toxic Vacuolation Not Reportable 12/20/21 04:54 Dohle Bodies Not Reportable 12/20/21 04:54 Pelger-Huet Anomaly Not Reportable 12/20/21 04:54 Irina Rods Not Reportable 12/20/21 04:54 Platelet Estimate Consistent w auto 12/20/21 04:54 Clumped Platelets Not Reportable 12/20/21 04:54 Plt Clumps, EDTA Not Reportable 12/20/21 04:54 Large Platelets Not Reportable 12/20/21 04:54 Giant Platelets Not Reportable 12/20/21 04:54 Platelet Satelliting Not Reportable 12/20/21 04:54 Plt Morphology Comment Not Reportable 12/20/21 04:54 RBC Morphology Not Reportable 12/20/21 04:54 Dimorphic RBCs Not Reportable 12/20/21 04:54 Polychromasia Not Reportable 12/20/21 04:54 Hypochromasia Not Reportable 12/20/21 04:54 Poikilocytosis Not Reportable 12/20/21 04:54 Anisocytosis 1+ 12/20/21 04:54 Microcytosis Not Reportable 12/20/21 04:54 Macrocytosis Not Reportable 12/20/21 04:54 Spherocytes Not Reportable 12/20/21 04:54 Pappenheimer Bodies Not Reportable 12/20/21 04:54 Sickle Cells Not Reportable 12/20/21 04:54 Target Cells Not Reportable 12/20/21 04:54 Tear Drop Cells Not Reportable 12/20/21 04:54 Ovalocytes Not Reportable 12/20/21 04:54 Helmet Cells Not Reportable 12/20/21 04:54 Odonnell-Crestline Bodies Not Reportable 12/20/21 04:54 [place] Rings Not Reportable 12/20/21 04:54 Malcom Cells Not Reportable 12/20/21 04:54 Bite Cells Not Reportable 12/20/21 04:54 Crenated Cell Not Reportable 12/20/21 04:54 Elliptocytes Not Reportable 12/20/21 04:54 Acanthocytes (Spur) Not Reportable 12/20/21 04:54 Rouleaux Not Reportable 12/20/21 04:54 Hemoglobin C Crystals Not Reportable 12/20/21 04:54 Schistocytes Not Reportable 12/20/21 04:54 Malaria parasites Not Reportable 12/20/21 04:54 Godfrey Bodies Not Reportable 12/20/21 04:54 Hem Pathologist Commnt No 12/20/21 04:54 PT 16.9 Sec. (12.2-14.9) H 01/06/22 04:06 INR 1.23 (0.87-1.13) H 01/06/22 04:06 APTT 29.2 Sec. (24.2-36.6) 11/26/21 05:00 D-Dimer 2655.00 ng/mlDDU (0-234) H 11/11/21 04:28 ABG pH 7.479 pH Units (7.350-7.450) H 12/16/21 20:52 ABG pCO2 37.5 mm Hg 12/16/21 20:52 ABG pO2 79.3 mm Hg (80.0-90.0) L 12/16/21 20:52 ABG HCO3 27.3 mmol/L (20.0-26.0) H 12/16/21 20:52 ABG O2 Saturation 97.0 % (95.0-99.0) 12/16/21 20:52 ABG O2 Content 12.3 (0.0-44) 12/16/21 20:52 ABG Base Excess 3.6 mmol/L (-2.0-3.0) H 12/16/21 20:52 ABG Hemoglobin 9.1 gm/dl (12.0-16.0) L 12/16/21 20:52 ABG Carboxyhemoglobin 1.6 % (0.0-5.0) 12/16/21 20:52 ABG Methemoglobin 0.5 % (0.0-1.5) 12/16/21 20:52 Oxyhemoglobin 94.9 % (95.0-99.0) L 12/16/21 20:52 FiO2 30 % 12/16/21 20:52 Sodium 132 mmol/L (137-145) L 01/06/22 04:06 Potassium 3.6 mmol/L (3.6-5.0) 01/06/22 04:06 Chloride 92.3 mmol/L (98-107) L 01/06/22 04:06 Carbon Dioxide 27 mmol/L (22-30) 01/06/22 04:06 Anion Gap 16 mmol/L 01/06/22 04:06 BUN 26 mg/dL (7-17) H 01/06/22 04:06 Creatinine 0.6 mg/dL (0.6-1.2) 01/06/22 04:06 Estimated GFR > 60 ml/min 01/06/22 04:06 BUN/Creatinine Ratio 43 % 01/06/22 04:06 Glucose 111 mg/dL (65-100) H 01/06/22 04:06 POC Glucose 111 mg/dL (70-105) H 01/07/22 05:20 Lactic Acid 3.70 mmol/L (0.7-2.0) H* 11/03/21 22:32 Calcium 8.7 mg/dL (8.4-10.2) 01/06/22 04:06 Phosphorus 3.80 mg/dL (2.5-4.5) 01/05/22 04:30 Magnesium 2.00 mg/dL (1.7-2.3) 01/05/22 04:30 Ferritin 52.6 ng/mL (10.0-200.0) 11/05/21 06:11 Total Bilirubin 0.50 mg/dL (0.1-1.2) 11/17/21 05:56 Direct Bilirubin < 0.2 mg/dL (0-0.2) 11/11/21 04:28 Indirect Bilirubin 0.1 mg/dL 11/11/21 04:28 AST 36 units/L (5-40) 11/17/21 05:56 ALT 47 units/L (7-56) 11/17/21 05:56 Alkaline Phosphatase 107 units/L (35-129) 11/17/21 05:56 Ammonia 42.0 umol/L (25-60) 11/10/21 14:08 Lactate Dehydrogenase 187 units/L (91-180) H 11/05/21 06:11 Troponin T 0.045 ng/mL (0.00-0.029) H 11/29/21 20:15 C-Reactive Protein 22.20 mg/dL (0.00-1.30) H 11/05/21 06:11 NT-Pro-B Natriuret Pep 7895 pg/mL (0-900) H 11/03/21 22:32 Total Protein 5.1 g/dL (6.3-8.2) L 11/17/21 05:56 Albumin 2.2 g/dL (3.9-5) L 11/17/21 05:56 Albumin/Globulin Ratio 0.8 % 11/17/21 05:56 Triglycerides 59 mg/dL (2-149) 11/29/21 20:15 Cholesterol 74 mg/dL (50-199) 11/29/21 20:15 LDL Cholesterol Direct 25 mg/dL (50-130) L 11/29/21 20:15 HDL Cholesterol 41 mg/dL (40-59) 11/29/21 20:15 Cholesterol/HDL Ratio 1.80 % 11/29/21 20:15 Vitamin B12 1823 pg/mL (211-911) H 11/10/21 14:08 TSH 1.510 mlU/mL (0.270-4.200) 11/10/21 14:08 Urine Color Yellow (Yellow) 11/11/21 09:00 Urine Turbidity Slightly-cloudy (Clear) 11/11/21 09:00 Urine pH 5.0 (5.0-7.0) 11/11/21 09:00 Ur Specific [place] 1.009 (1.003-1.030) 11/11/21 09:00 Urine Protein <15 mg/dl mg/dL (Negative) 11/11/21 09:00 Urine Glucose (UA) Neg mg/dL (Negative) 11/11/21 09:00 Urine Ketones Neg mg/dL (Negative) 11/11/21 09:00 Urine Blood Mod (Negative) 11/11/21 09:00 Urine Nitrite Neg (Negative) 11/11/21 09:00 Urine Bilirubin Neg (Negative) 11/11/21 09:00 Urine Urobilinogen < 2.0 mg/dL (<2.0) 11/11/21 09:00 Ur Leukocyte Esterase Neg (Negative) 11/11/21 09:00 Urine WBC (Auto) < 1.0 /HPF (0.0-6.0) 11/11/21 09:00 Urine RBC (Auto) < 1.0 /HPF (0.0-6.0) 11/11/21 09:00 Fluid Type Pleural 01/06/22 13:40 Fluid Color Yellow 01/06/22 13:40 Fluid Appearance Hazy 01/06/22 13:40 Fluid WBC 273 /mm3 01/06/22 13:40 Fluid RBC 45 /mm3 01/06/22 13:40 Fluid Seg Neutrophils 47.0 % 01/06/22 13:40 Fluid Lymphocytes 22.0 % 01/06/22 13:40 Fluid Monocytes 10.0 % 01/06/22 13:40 Fluid Eosinophils 19.0 % 01/06/22 13:40 Fluid Basophils 2.0 % 01/06/22 13:40 Vancomycin Trough 22.8 ug/mL (5.0-20.0) H 01/02/22 17:30 Random Vancomycin 10.5 ug/mL (0-40.0) 01/04/22 05:00 Coronavirus (PCR) Negative (Negative) 11/10/21 08:30 Blood Type O POSITIVE 12/14/21 10:30 Antibody Screen Negative 12/14/21 10:30 Crossmatch See Detail 12/14/21 10:30 Gamble/IV: Voiding Method External Female Catheter Active Medications - Current Medications Current Medications: Generic Name Dose Route Start Last Admin Trade Name Freq PRN Reason Stop Dose Admin Acetaminophen 650 mg 12/14/21 04:12 01/01/22 11:45 Acetaminophen 325 Mg/10.15 Ml Oral Liqd Unit Dose FEEDTUBE 650 mg Q6H PRN Administration Non Cardiac Pain or Temp>100.5 Hydrocodone Bitart/Acetaminophen 1 each 11/21/21 10:00 01/07/22 13:06 Hydrocodone/Acetaminophen 10-325mg Tab FEEDTUBE 1 each TID YOSSI Administration Alprazolam 0.25 mg 12/30/21 09:00 01/07/22 06:28 Alprazolam 0.25 Mg Tab FEEDTUBE 0.25 mg Q8H PRN Administration Agitation Lipase/Protease/Amylase 1 each 11/08/21 11:09 Lipase 10,500/Protease 25,000/Amylase 43,750 (Units) Dr Lema FEEDTUBE PRN PRN For Clogged Feeding Tube Buspirone HCl 7.5 mg 12/30/21 10:00 01/07/22 09:38 Buspirone 5 Mg Tab FEEDTUBE 7.5 mg BID YOSSI Administration Dextrose 0 ml 11/10/21 10:52 12/30/21 00:48 Dextrose 10% *Hypoglycemia IV 50 ml PRN PRN Administration Hypoglycemia Docusate Sodium 100 mg 12/30/21 10:00 01/07/22 09:38 Docusate Sodium 100 Mg/10 Ml Oral Liqd FEEDTUBE Not Given BID YOSSI Furosemide 20 mg 01/08/22 10:00 Furosemide 20 Mg Tab PO QDAY YOSSI Gabapentin 100 mg 12/30/21 10:00 01/07/22 09:38 Gabapentin 100 Mg Cap FEEDTUBE 100 mg QDAY YOSSI Administration Hydromorphone HCl 0.5 mg 12/08/21 20:06 01/05/22 14:20 Hydromorphone 1 Mg/1 Ml Inj IV 0.5 mg Q3H PRN Administration Pain, Moderate (4-6) Hydrophilic Ointment 1 applic 11/06/21 04:02 Lip Therapy Vaseline TP Q2HR PRN Dry Lips Vancomycin HCl 1 gm in 250 mls @ 166.667 mls/hr 01/04/22 10:00 01/06/22 10:23 Vancomycin/Ns 1 Gm/250 Ml IV 01/26/22 11:29 166.667 mls/hr Q48H YOSSI Administration Lansoprazole 30 mg 11/24/21 22:00 01/07/22 09:36 Lansoprazole 30 Mg Solutab FEEDTUBE 30 mg BID YOSSI Administration Levothyroxine Sodium 125 mcg 12/31/21 06:00 01/07/22 06:28 Levothyroxine 125 Mcg Tab FEEDTUBE 125 mcg DAILY@0600 YOSSI Administration Melatonin 5 mg 12/05/21 22:00 01/06/22 23:14 Melatonin 5 Mg Tab PO 5 mg QHS YOSSI Administration Metoprolol Tartrate 6.25 mg 12/30/21 10:00 01/07/22 09:37 Metoprolol Tartrate 25 Mg Tab FEEDTUBE 6.25 mg BID YOSSI Administration Midodrine 5 mg 12/30/21 09:00 01/07/22 16:58 Midodrine 5 Mg Tab FEEDTUBE 5 mg TID@0800,1200,1600 YOSSI Administration Multi-Ingred Cream/Lotion/Oil/Oint 1 applic 11/06/21 04:02 Mineral Oil/Petrolatum, White Ophth Oint 3.5 Gm OU Q4HR PRN Dry Eye(s) Ondansetron HCl 4 mg 12/05/21 10:00 01/07/22 06:28 Ondansetron 4 Mg/2 Ml Inj IV 4 mg Q8H PRN Administration Nausea And Vomiting Polyethylene Glycol 17 gm 12/30/21 10:00 01/07/22 09:37 Polyethylene Glycol 3350 17 Gm Powder FEEDTUBE 17 gm QDAY YOSSI Administration Pravastatin Sodium 20 mg 12/30/21 22:00 01/06/22 23:14 Pravastatin 20 Mg Tab FEEDTUBE 20 mg QHS YOSSI Administration Quetiapine Fumarate 25 mg 12/30/21 10:00 01/07/22 09:38 Quetiapine 25 Mg Tab FEEDTUBE 25 mg QAM YOSSI Administration Quetiapine Fumarate 50 mg 12/30/21 22:00 01/06/22 23:13 Quetiapine 25 Mg Tab FEEDTUBE 50 mg QHS YOSSI Administration Senna 17.6 mg 12/29/21 11:00 01/07/22 09:38 Sennosides Oral Liqd 8.8 Mg/5 Ml Oral Liqd FEEDTUBE Not Given Q12HR YOSSI Simple Syrup 15 ml 11/08/21 11:09 Simple Syrup 15 Ml FEEDTUBE PRN PRN Hypoglycemia Simple Syrup 30 ml 11/08/21 11:09 Simple Syrup 15 Ml FEEDTUBE PRN PRN Hypoglycemia Sodium Bicarbonate 325 mg 11/08/21 11:09 Sodium Bicarbonate 325 Mg Tab FEEDTUBE PRN PRN For Clogged Feeding Tube Sodium Chloride 10 ml 11/04/21 10:00 01/07/22 09:39 Sodium Chloride 0.9% 10 Ml Flush Syringe IV 10 ml BID YOSSI Administration Sodium Chloride 10 ml 11/04/21 02:03 Sodium Chloride 0.9% 10 Ml Flush Syringe IV PRN PRN LINE FLUSH Spironolactone 25 mg 12/30/21 10:00 01/07/22 09:36 Spironolactone 25 Mg Tab FEEDTUBE 25 mg QDAY YOSSI Administration Sucralfate 1 gm 12/30/21 12:00 01/07/22 17:02 Sucralfate 1 Gm/10 Ml Oral Liqd FEEDTUBE 1 gm Q6HR YOSIS Administration Trazodone HCl 50 mg 12/04/21 22:00 01/06/22 23:14 Trazodone 50 Mg Tab PO 50 mg QHS YOSSI Administration Nutrition/Malnutrition Assess - Dietary Evaluation Nutrition/Malnutrition Findings: Nutrition Notes Start: 11/04/21 17:16 Freq: Status: Active Protocol: Document 01/02/22 12:11 [facility] (Rec: 01/02/22 12:17 NHALL [id number]) Nutrition Notes Initial or Follow up Reassessment Current Diagnosis Diabetes,Heart Failure, Respiratory Failure Other Pertinent Diagnosis Bacteremia, pneu, Bilat pleural effusion, Agitation/ anxiety Current Diet TF - Vital AF 1.2 at 45ml/hr Labs/Tests Na 131 K 3.5 BUN 27 Pertinent Medications 25% Human Albumin, Colace, Lasix, Reglan, Miralax, 40mEq KCl, Senokot, Sucralfate Height 5 ft Weight 73.3 kg [place] Body Weight (kg) 45.45 BMI 31.5 Weight change and time frame Current wt obtained from bed scale Weight Status Obese Subjective/Other Information Observed TF infusing at goal rate. Pt remains on vent support. Percent of energy/protein needs met: 100% energy 89% pro Burn Absent Trauma Absent #1 Nutrition Diagnosis Inadequate oral intake Diagnosis Progress(for reassessment Continues documentation) Is patient on ventilator? Yes Is Patient Ambulatory and/or Out of Bed No REE-([facility]-confined to bed) 1338.492 Kcal/Kg value to use for calculation 17 Approximate Energy Requirements Using 1246 kcal/Kg Calculation Used for Recommendations Kcal/kg Additional Notes Pro needs 2g/kg IBW: 91g/day Fluid needs per MD. Nutrition Intervention Nutrition Support: Continue Vital AF 1.2 at 45ml/ hr with 70ml water flush q4h. Kcal 1,296 Protein (gm) 81 Carbohydrates (gm) 119 Fat (gm) 58 Fluid (mL) 876 Fiber (gm) 6 Goal #1 TF tolerance Goal #2 TF to meet at least 75% energy and pro needs Follow-Up By: 01/09/22 Additional Comments F/U: stable TF, vent status, wt
[2022-01-07] MEDS: traZODone 50 MG TAB PO SCH (22:03)
[2022-01-07] MEDS: PRAVASTATIN 20 MG TAB FEEDTUBE SCH (22:04)
[2022-01-07] MEDS: MELATONIN 5 MG TAB PO SCH (22:04)
[2022-01-08] MEDS: LEVOTHYROXINE 125 MCG TAB FEEDTUBE SCH (05:01)
[2022-01-08] MEDS: SUCRALFATE 1 GM/10 ML ORAL LIQD FEEDTUBE SCH ×5 (05:01→22:41)
[2022-01-08] MEDS: ALPRAZolam 0.25 MG TAB FEEDTUBE PRN ×2 (05:29→23:34)
[2022-01-08] MEDS: HYDROcodone/ACETAMINOPHEN 10-325MG TAB FEEDTUBE SCH ×3 (08:18→23:52)
[2022-01-08] MEDS: MIDODRINE 5 MG TAB FEEDTUBE SCH ×2 (08:18→12:05)
[2022-01-08] MEDS: LANSOPRAZOLE 30 MG SOLUTAB FEEDTUBE SCH ×2 (11:00→22:55)
[2022-01-08] MEDS: FUROSEMIDE 20 MG TAB PO SCH (11:00)
[2022-01-08] MEDS: busPIRone 5 MG TAB FEEDTUBE SCH ×2 (11:00→22:55)
[2022-01-08] MEDS: GABAPENTIN 100 MG CAP FEEDTUBE SCH (11:00)
[2022-01-08] MEDS: QUEtiapine 25 MG TAB FEEDTUBE SCH ×2 (11:00→22:55)
[2022-01-08] MEDS: SPIRONOLACTONE 25 MG TAB FEEDTUBE SCH (12:07)
[2022-01-08] MEDS: DOCUSATE SODIUM 100 MG/10 ML ORAL LIQD FEEDTUBE SCH (12:09)
[2022-01-08] MEDS: METOPROLOL TARTRATE 25 MG TAB FEEDTUBE SCH ×2 (12:09→23:25)
[2022-01-08] MEDS: POLYETHYLENE GLYCOL 3350 17 GM POWDER FEEDTUBE SCH (12:10)
[2022-01-08] MEDS: SENNOSIDES ORAL LIQD 8.8 MG/5 ML ORAL LIQD FEEDTUBE SCH (12:10)
[2022-01-08] MEDS: VANCOMYCIN/NS 1 GM/250 ML 1 GM/250 ML BAG IV SCH (12:13)
--- NOTE | 2022-01-08 14:16 | Progress Note ---
Assessment and Plan Assessment and plan: History Interval history: This is an 82-year-old female with DM, HTN , CHB s/p PPM, CAD s/p PCI and arthritis who presented to the emergency department on 11/04 for shortness of breath ongoing for the past 3 days, cough and according to family a fever of 102.2. Upon arrival of EMS patient was found to be tachypneic and hypoxic with SPO2 of 76% on room air which later improved to 88% on nonrebreather. Work-up in the emergency department included a CXR which showed bilateral interstitial pulmonary edema with bilateral pleural effusions and bibasilar opacities, leukocytosis and anemia with a hemoglobin of 6.1. Patient was admitted to the hospitalist service with acute anemia, acute hypoxic respiratory failure, bilateral pneumonia and COVID-19 PUI with consults to pulmonology, infectious disease and later cardiology. Patient was eventually intubated in the emergency department on 11/06. Hospital Course to date: 11/04/2021: Empiric therapy with iv levaquin/vancomycin. COVID PCR pending. Will consult ID. PCCM consulted, will follow recs. Hypotensive this AM, ordered bolus and fluids at 150 cc/hr. May require pressor support if bp does not improve. 11/05/2021: GBS on bcx +, currently on rocephin IV. Currently on bipap due to respiratory distress overnight. Worsening BL opacities on CXR. May be volume overload vs pneumonia. Unfortunately bp too low for lasix at this point. WIll continue levophed and bipap. Once able to tolerate, may do trial of albumin/lasix. Call attempt made to Niraj, no response. Will try again tomorrow to update. 11/06/2021: Decompensated overnight requiring intubation. CXR shows worsening interstitial infiltrates. Currenlty on dopamine, levophed, vasopressin. PICC line ordered. Advised RN to place gamble for I/O monitoring. Would benefit from diuresis but very volume overloaded. Prognosis guarded 11/08: Off sedation this am, remains unresponsive only grimace to pain. Hold all sedatives agents for now, patient is off pressors this am. Hypernatremia from today's lab- D5W X1bag, and low K repleted, repeat lab in the am. Severe constipation also noted from KUB, BR added. 11/09: Sudden SPO2 drop in the 60s this am. Patient was manually bagged and deep suctioned. Patient is currently stable on the vent, repeat CXR with no significant change. D/w CCM Mucomyst and brochodilator added. Patient mentation is unchanged, continue to hold off on sedative agents. Neurology consulted. 11/10: Acute DVT noted on bilateral lower extremity Doppler ultrasound therefore she was started on Lovenox treatment dose. Failed SBT. Hypernatremia and hyperchloremia noted, free water flush adjusted. 11/11: Patient noted to be febrile with increasing of the cytosis, UA/BC sent and CXR ordered. ID escalated antibiotics to cefepime. CXR demonstrated mucous plug, bedside bronchoscopy was performed and O ETT was changed over bougie from 6 cm to 7.5. Patient was noted to have a pneumothorax postprocedure and chest tube was placed. Family updated by [facility]. Free water flush increased and will add Jaswant supplementation. 11/12: Patient not noted to follow commands, hypernatremia worsen/persist, increasing free water flush, potassium and magnesium and phosphorus repleted. Hemoglobin noted to be 7./24.5 from 7.03/12 yesterday. We will continue to trend and monitor. Vent changes per [facility]. Repeat CXR showed no residual pneumothorax. Consider waterseal tomorrow. Given persistent leukocytosis antibiotics escalated to cefepime per ID. 11/13: Remains on cefepime and vancomycin, vent changes per [facility]. Anemia noted and given 1 unit PRBC. And beta-charleen held in setting of Levophed drip infusing. Remains on fentanyl drip. 11/14: Patient put on CPAP trial by [facility], will continue chest tube until after extubation. Will rest on assist control. CT brain was cancelled by radio time salesperson and reordered. 11/15: Patient removed chest tube overnight. Will obtain cxr. remains on low dose levo. CTH completed with no acute findings. RT to place on CPAP. 11/16: Hypernatremia/hyperchloremia noted on the increase of day water flushes. Anemia noted and ordered PRBC. asked RT to place on cpap but not done yet 11/17: Patient remains on the vent, awake and following commands. H&H stable s/p 2units PRBCs. GI on consult, no intervention at this time. Will continue protonix gtt and serial H&H Q6hrs. Keep patient NPO for now, D5w added for hypernatremia and NPO status. Plan for IVC filter placement today by Vascular. 11/18: Patient is s/p IVC filter. H&H continue to trend down, hbg 6.1 this am, 1 unit of PRBCs ordered. Plan for possible EGD today by GI. Keep patient NPO, continue PPI drip and serial H&H Q6hrs. Electrolytes repleted, repeat lab in the am 11/19: S/p EGD- larger duodenal ulcer noted, see operative note. GI recommendations noted also noted. H&H stable this am. Keep patient on protonix gtt for now. Will keep patient NPO, continue IVF and serial H&H for now. Electrolytes repleted, repeat labs in the am 11/20: Very agitated and restless this am, fentanyl gtt resumed. Patient remains on protonix gtt, H&H remains stable. Will switch protonix gtt to IV BID, continue carafate and okay to resume meds at this time. Will F/u with GI to see if TF can be resumed. Gamble was reinserted overnight for retention. Electrolytes repleted, repeat in the am. Plan for possible PST today for possible extubation per CCM. 11/21: Patient is now on seroquel and patient's home buspar resumed. Patient more calm this morning, fentanyl gtt is off. H&H remains stable and patient is tolerating TF. Patient had a runs of Vtach/PVCs this am, BB added per Cardio. Continue daily PS and wean trial for possible extubation. 11/22: Back on fentanyl gtt overnight , RASS o to -1, following commands. Patient failed PST this am due to increased work of breathing and low SPO2, ABG pending. Patient is also with worsen pitting edema, lasix is still on hold. Will discuss with cardio and CCM to possibly resume lasix. 11/23: MARIA DEL CARMEN overnight. Patient failed PST again this am. Per CCM plan for possible trach and PEG, hold off on IV lasix for now. General surgery consulted and family is aware of possible Trach and PEG. 11/24: Trach/PEG pending this week, continue SBT/SAT as tolerated. No acute events reported overnight. 11/25: Patient was n.p.o. overnight and will remain n.p.o. tonight for trach/PEG tomorrow morning. She failed to support trial again. KUB obtained due to distended belly. 11/26: Patient scheduled for tracheostomy and PEG tube placement today, has been n.p.o. since midnight. No acute events reported overnight. [facility] ordered simethicone scheduled. 11/27: No acute events reported overnight, patient received trach/PEG yesterday. Has been on feedings since last night. Still awaiting LTAC placement. 11/28: Patient magnesium repleted, repeat a.m. labs, SBT 11/29: Patient complains of chest pain but ECG obtained which showed no acute findings, ordered troponin. Patient failed CPAP yesterday and was trialed again today. levophed was restarted but will aggressively wean 11/30: Patient failed SBT. Continue supportive care. Started gabapentin today 12/01: MARIA DEL CARMEN overnight. Continue daily PST. Case management to arrange possible placement 12/02: Report of dark stools overnight, patient is hemodynamically stable. H&H stable, patient is on PPI. Will continue to trend H&H. Continue daily PST as tolerated. Awaiting LTAC vs SNF placement. 12/03: Hypotensive overnight, requiring low dose pressors. S/p X3 days of gentle diurese. Will continue to monitor, wean off pressors as tolerated for MAP of 65. Patient Failed PST yesterday, case management to follow up with insurance for possible LTAC placement. Continue daily PST as tolerated. PT eval and treat ordered. 12/04: Increased agitation and anxiety overnight, remains on buspar and seroquel, trazadone added to promote rest. Patient is now working with PT, keep patient engage and awake during the day so she can rest at night. No BM for over 5 days, BR was adjusted. Patient did not tolerate PST again yesterday, continue daily PST as tolerated. Continue to titrate pressor for MAP above 65. Pending possible LTAC placement, case management to arrange. 12/05: Still not getting much rest overnight, will add melatonin for sleep. Continue to engage patient during the day and promote rest at night. TF was held due to concern for possible bleeding, H&H remains stable and stools normal this am. Resume TF and continue PPI and carafate. Remains on low dose levophed, titrate as tolerated. Continue daily PST. Possible LTAC placement, awaiting approval. 12/06: MARIA DEL CARMEN overnight. Patient rested overnight. Continue supportive measures. Daily PST as tolerated. Awaiting possible LTAC placement 12/07: MARIA DEL CARMEN overnight. Plan for Tpiece trial today. Continue current supportive measures. Possible LTAC placement 12/08: Patient placed on pressure support trial again today, started on Xanax, no acute events reported overnight. Awaiting insurance approval for LTAC. 12/09: Levophed discontinued, LTAC transfer denied, started on midodrine and Lasix, ultrasound chest pending, started on Xanax 0.[address] De León updated family at bedside today. Started on Dilaudid every 3 hours as needed. 12/10: Patient placed on CPAP trial this morning, no acute events reported overnight. Will order ultrasound-guided thoracentesis. 12/11: Patient had a thoracentesis today, will decrease Xanax dosage and continue midodrine and diuresing. Patient failed CPAP today. 12/12: Patient not tolerate CPAP trials today, no acute events reported overnight 12/13: No acute events overnight. continue PSV trials as tolerated. Daughter updated at bedside 12/14: Patient noted to be anemic today, ordered gastric occult. Patient seems to be oversedated therefore Xanax changed to as needed and fentanyl patch discontinued. We will continue to monitor hyponatremia. 12/15: MARIA DEL CARMEN overnight. s/p 1unit of PRBCs, H&H stable this am, no signs of any active bleeding. Continue daily PST as tolerated. Awaiting placement. 12/16: Hypertensive this am, Midodrine decreased. Continue daily PST. MARIA DEL CARMEN overnight 12/17: Patient Hgb dropped to 6 this am, no s/s of any active bleeding, VSS. Patient received 1unit of PRBC, will continue to trend H&H. Patient was pancultured and back on IV Abx due to persistent fevers yesterday. ID is also back on the case. Continue IV Abx per ID and f/u on cultures data for sensitivity. Patient also failed PST yesterday, continue daily PST as tolerated. Electrolytes repleted, repeat labs in the am. 12/18: Patient blood cultures is growing GPC 4 out 4 bottles. PICC line D/Rivas, patient is already on IV Abx-cefepine and Vanc and ID is following. Patient remains hemodynamically stable. Daily PST as tolerated adn PRN Benzo for anxiety. 12/19: MARIA DEL CARMEN overnight. Culture data noted, continue IV Abx per ID. Orders placed for repeat Bculture. Gamble D/C overnight, patient is voiding. Check bladder scan as needed for retention. Patient failed PST again today. Continue daily PST as tolerated. 12/20: Fevers improved, Cultures +MRSA, on Vanco per ID. Repeat 2D Echo to r/o endocarditis. Patient continue to fail PST, PEEP increased to 8 today. Continue pulmonary hygiene and vent wean per CCM. Sodium tab added for hyponatremia. 12/22: Patient on pressure support trial for approximately 4 hours today, midodrine dosage increased due to hypotension. Lasix discontinued. 12/23: Started on a.m. Seroquel dose, midodrine increased to 10 mg 3 times daily, 500 mL normal saline bolus. 12/24: Seroquel dose changed (25 every morning, 75 nightly). updated at bedside by Dr. De León. CPAP trials as tolerated. Continue vancomycin. Awaiting placement. 12/25: Continue CPAP as tolerated, added gasx for distention. Continue supportive care 12/26: Patient failed PSV this AM. no acute events overnight. 12/27: GI re-consulted due to abdominal distention. No acute events reported overnight. CPAP trials as tolerated. Dr. Mckenna will get a KUB to rule out po ssible obstruction. 12/28: KUB shows no acute process, CXR shows improvement. CPAP trials as tolerat ed. 12/29: CT Abd/pelvis noted with moderated bilateral pleural effusion, anasarca, and ascites. X1dose of IV lasix administered. D/w CCM and GI orders plan for thora and paracentesis by IR. Will also start patient on aldactone Qday. Patient is tolerating trickle feeds this am, continue TF and BR adjusted for constipation. Plan of care was discussed with patient and her at the bedside. Thorough discussion on patient's overall poor prognosis and that patient will most likely be vent dependent. Patient's voiced understanding of the info given. All questions and concerns were voiced at this time. 12/30: Patient did not tolerate thoracentesis in IR yesterday due to change in LOC and hypoxia. Plan for possible bedside thoracentesis and paracentesis today. Patient remains afebrile. Patient required snf IV abx therapy [id number] left, orders placed for a PICC. Patient remains with sign. Piting edema and anasarca, X1 does of PO Zaroxolyn and 2m of IV lasix given. Electrolytes repleted, repeat lab in the am. 12/31: Tolerated Rt. thoracentesis at the bedside yesterday, 1.4L removed. Patient remains stable on the vent this am, tolerating CPAP today PS dropped to 14. Recent CXR noted, left pleural effusion improved. Patient tolerated gentle diurese yesterday, good urine output reported. D/w CCM hold off on Left thoracentesis today, continue PO Aldactone and additonal zaroxolyn and IV lasix again today. F/u CXR in the am. 01/01: This am CXR noted with worsening bilateral pleural effusion. Patient is stable and tolerating PST this am, however PS is back up to 20 this am. BP is soft this am will hold off on IV diuretic for today, continue PO Aldactone. D/w CCM continue gentle diurese as tolerated. Will reassess in the am. Continue support care. 01/02: MARIA DEL CARMEN overnight. VSS this am, tolerating PST. X1dose of 25% IV Albumin following with 20mg IV Lasix today. Continue daily gentle diurese if hemodynamics tolerate it. Continue to monitor and replace electrolytes as needed 01/03: Abdominal distention and vomiting overnight, 600cc of gastric residual removed, TF held. KUB with no acute abnormality. Reglan added X2days, resume TF, and continue BR. Patient is tolerating PST this am. Hemodynamics remains stable, will continue gentle IV diurese. close monitoring to renal function and electrolytes. 01/04: Tolerating TF, nausea/vomiting resolved, last BM on 01/03. Continue Reglan X1 more day. Patient continue to tolerate PST. D/W CCM continue gentle diurese. F/U CXR in the am. Possible US thoracentesis tomorrow. 01/05: no acute events overnight. scheduled for thoracentesis today but procedure pushed to tomorrow. TF restarted and will be NPO post MN. 01/06: planned thoracentesis today. Working with CM for ltac/snf approval. 01/07: s/p thoracentesis 120 cc appears to have been removed. Pulm recommendations noted, agree with continued diuresis and weaning. Continued planning with CM for ltac/snf placement. 01/08: No new issues. Continue vent weaning per pulmonary. Continuing to work with CM for placement. Assessment and Plan Neuro : Anxiety, chronic pain -Neurology consulted, appreciate recommendations -CT brain showed no acute events -EEG interpreted as abnormal record due to diffuse slowing noted throughout the recording, suggestive of encephalopathic process and/or drug effect, possibilities of postictal state cannot be totally excluded. Clinical correlation is in order -MRI brain not obtained-> patient has metal in her body -Repeat CT head with no acute findings -Reorientation as needed -Ammonia 42, B12 1823, TSH 1.5 -BuSpar, Seroquel, [place], gabapentin -prn xanax and Dilaudid Cardio: Acute Heart failure with reduced EF, h/o chronic heart block s/p PPM, HTN, CAD s/p PCI (2004), Moderate pulmonary HTN, cardiomyopathy -s/p vasopressor support with levophed -11/04 echocardiogram shows EF 30 to 35%, Moderate pulmonary HTN RVSP 49 -3/ echo with 35-40% EF -Cardiology consulted, appreciate recommendations -Continue beta-charleen and statin therapy -Midodrine (titrate as needed) -Not on aspirin due to allergy -Blood pressure monitoring per protocol -As needed nitroglycerin Resp: Acute hypoxic respiratory failure secondary to bilateral pneumonia, bilateral pleural effusion. Right pneumothorax (resolved) -COVID-19 PCR negative -Intubated on 11/06 with 6.00 ETT at 18 at the lip and changed over bougie on 11/11-7.50 ETT at 20 at the lip -See RT notes for titration -PSV as tolerated -Surgery consult for trach -Received trach/PEG on 11/26 -S/p bedside bronchoscopy on 11/11 complicated by pneumothorax -S/p chest tube placement for right pneumothorax and dislodgment by patient on 11/15 -ABG/CXR per [facility] -VAP bundle -Right chest wall ultrasound showed pleural effusion s/p chest tube -12/11 US thoracentesis removed 1L fluid -12/29 US thoracentesis removed 1.4L fluid -01/06 thoracentesis planned -SPO2 monitoring GI: S/p GI bleed, duodenal ulcer, transaminitis -GI consulted, appreciate recommendations-signed off -Nutrition consult for tube feeding -BR: Senokot -s/p peg 11/26 -H2 charleen -Carafate -24-hour +428 ml -10/2021 Gastric occult positive -> EGD-> duodenal ulcer -12/14 occult stool positive : Urinary retention (resolved), hyponatremia, hypochloremia -Strict intake and output -Trend BMP ID: Septic shock (POA-resolved), bilateral pneumonia, MRSA bacteremia/pna -Infectious disease consulted, appreciate recommendations -COVID-19 PCR negative -Presented with fevers, leukocytosis and hypotension -11/04 blood cultures positive with a group B strep bacteremia 12/19 however repeat blood cultures on the with no growth to date -Echo showed no evidence of vegetation -repeat echo showed EF 35-40 % with no vegetations -ABX therapy: IV vancomycin for 4 weeks (12/16-01/26) -Monitor WBC and fever curve -Bedside bronchoscopy for mucous plug on CXR 11/11 -f/u blood cultures Heme: Acute DVT in the right external iliac vein, common femoral vein, superior aspect of femoral vein, Acute microcytic anemia -Evidenced on bilateral upper lower extremity ultrasound -S/p 7 unit PRBC -Trend CBC -Transfuse for hemoglobin less than 7 -heparin gtt dc d/t anemia -S/p IVC filter Endo: h/o DM and hypothyroidism -Continue home Synthroid -SSI -Accu-Cheks every 6 -Avoid hypoglycemia Disposition: Denied LTAC placement by insurance, appeal denied. Awaiting subacute rehab placement The high probability of a clinically significant, sudden or life threatening deterioration of the [pulm,mental health, CV] system(s) required my full and direct attention, intervention and personal management. The aggregate critical care time was [60] minutes. This time is in addition to time spent performing reported procedures but includes the following: [x] Data Review and interpretation [x] Patient assessment and monitoring of vital signs [x] Documentation [x] Medication orders and management Disposition Plan: imcu Total Time Spent with Patient (Minutes): 60 History Interval history: Patient seen and evaluated. In no distress. Resting comfortably. Hospitalist Physical - Physical exam Narrative exam: Physical Exam: VITAL SIGNS: Reviewed. GENERAL: The patient appears normally developed, Vital signs as documented. Frail appearing elderly woman. HEAD: No signs of head trauma. EYES: Pupils are equal. Extraocular motions intact. EARS: Hearing grossly intact. MOUTH: Oropharynx is normal. NECK: No adenopathy, no JVD. CHEST: Bl rhonchi CARDIAC: Regular rate and rhythm. S1 and S2, without murmurs, gallops, or rubs. VASCULAR: No Edema. Peripheral pulses normal and equal in all extremities. ABDOMEN: Soft, non tender and non distended. No rebound or guarding, and no masses palpated. Bowel Sounds normal. MUSCULOSKELETAL: Good range of motion of all major joints. Extremities without clubbing, cyanosis or edema. NEUROLOGIC EXAM: Alert and oriented x 4. no focal sensory or strength deficits. PSYCHIATRIC: anxious appearing SKIN: detail exam as documented in skin assessment - Constitutional Vitals: Temp Pulse Resp BP Pulse Ox 98.9 F 64 19 123/57 100 01/08/22 12:02 01/08/22 13:45 01/08/22 13:45 01/08/22 13:45 01/08/22 13:45 General appearance: Present: no acute distress, other (Trach and on the vent) HEART Score - HEART Score Troponin: Troponin T 0.045 ng/mL (0.00-0.029) H 11/29/21 20:15 Results - Labs CBC & Chem 7: 01/06/22 04:06 01/06/22 04:06 Labs: Laboratory Last Values WBC 7.7 K/mm3 (4.5-11.0) 01/06/22 04:06 RBC 2.89 M/mm3 (3.65-5.03) L 01/06/22 04:06 Hgb 7.7 gm/dl (10.1-14.3) L 01/06/22 04:06 Hct 23.8 % (30.3-42.9) L 01/06/22 04:06 MCV 82 fl (79-97) 01/06/22 04:06 MCH 27 pg (28-32) L 01/06/22 04:06 MCHC 33 % (30-34) 01/06/22 04:06 RDW 18.0 % (13.2-15.2) H 01/06/22 04:06 Plt Count 225 K/mm3 (140-440) 01/06/22 04:06 Add Manual Diff Complete 12/20/21 04:54 Total Counted 100 12/20/21 04:54 Seg Neutrophils % Parent Coach 11/06/21 15:50 Seg Neuts % (Manual) 88.0 % (40.0-70.0) H 12/20/21 04:54 Band Neutrophils % 0 % 12/20/21 04:54 Lymphocytes % (Manual) 6.0 % (13.4-35.0) L 12/20/21 04:54 Reactive Lymphs % (Man) 0 % 12/20/21 04:54 Monocytes % (Manual) 5.0 % (0.0-7.3) 12/20/21 04:54 Eosinophils % (Manual) 1.0 % (0.0-4.3) 12/20/21 04:54 Basophils % (Manual) 0 % (0.0-1.8) 12/20/21 04:54 Metamyelocytes % 0 % 12/20/21 04:54 Myelocytes % 0 % 12/20/21 04:54 Promyelocytes % 0 % 12/20/21 04:54 Blast Cells % 0 % 12/20/21 04:54 Nucleated RBC % Not Reportable 12/20/21 04:54 Seg Neutrophils # Man 10.8 K/mm3 (1.8-7.7) H 12/20/21 04:54 Band Neutrophils # 0.0 K/mm3 12/20/21 04:54 Lymphocytes # (Manual) 0.7 K/mm3 (1.2-5.4) L 12/20/21 04:54 Abs React Lymphs (Man) 0.0 K/mm3 12/20/21 04:54 Monocytes # (Manual) 0.6 K/mm3 (0.0-0.8) 12/20/21 04:54 Eosinophils # (Manual) 0.1 K/mm3 (0.0-0.4) 12/20/21 04:54 Basophils # (Manual) 0.0 K/mm3 (0.0-0.1) 12/20/21 04:54 Metamyelocytes # 0.0 K/mm3 12/20/21 04:54 Myelocytes # 0.0 K/mm3 12/20/21 04:54 Promyelocytes # 0.0 K/mm3 12/20/21 04:54 Blast Cells # 0.0 K/mm3 12/20/21 04:54 WBC Morphology Not Reportable 12/20/21 04:54 Hypersegmented Neuts Not Reportable 12/20/21 04:54 Hyposegmented Neuts Not Reportable 12/20/21 04:54 Hypogranular Neuts Not Reportable 12/20/21 04:54 Smudge Cells Not Reportable 12/20/21 04:54 Toxic Granulation Not Reportable 12/20/21 04:54 Toxic Vacuolation Not Reportable 12/20/21 04:54 Dohle Bodies Not Reportable 12/20/21 04:54 Pelger-Huet Anomaly Not Reportable 12/20/21 04:54 Irina Rods Not Reportable 12/20/21 04:54 Platelet Estimate Consistent w auto 12/20/21 04:54 Clumped Platelets Not Reportable 12/20/21 04:54 Plt Clumps, EDTA Not Reportable 12/20/21 04:54 Large Platelets Not Reportable 12/20/21 04:54 Giant Platelets Not Reportable 12/20/21 04:54 Platelet Satelliting Not Reportable 12/20/21 04:54 Plt Morphology Comment Not Reportable 12/20/21 04:54 RBC Morphology Not Reportable 12/20/21 04:54 Dimorphic RBCs Not Reportable 12/20/21 04:54 Polychromasia Not Reportable 12/20/21 04:54 Hypochromasia Not Reportable 12/20/21 04:54 Poikilocytosis Not Reportable 12/20/21 04:54 Anisocytosis 1+ 12/20/21 04:54 Microcytosis Not Reportable 12/20/21 04:54 Macrocytosis Not Reportable 12/20/21 04:54 Spherocytes Not Reportable 12/20/21 04:54 Pappenheimer Bodies Not Reportable 12/20/21 04:54 Sickle Cells Not Reportable 12/20/21 04:54 Target Cells Not Reportable 12/20/21 04:54 Tear Drop Cells Not Reportable 12/20/21 04:54 Ovalocytes Not Reportable 12/20/21 04:54 Helmet Cells Not Reportable 12/20/21 04:54 [place] Bodies Not Reportable 12/20/21 04:54 [place] Rings Not Reportable 12/20/21 04:54 Malcom Cells Not Reportable 12/20/21 04:54 Bite Cells Not Reportable 12/20/21 04:54 Crenated Cell Not Reportable 12/20/21 04:54 Elliptocytes Not Reportable 12/20/21 04:54 Acanthocytes (Spur) Not Reportable 12/20/21 04:54 Rouleaux Not Reportable 12/20/21 04:54 Hemoglobin C Crystals Not Reportable 12/20/21 04:54 Schistocytes Not Reportable 12/20/21 04:54 Malaria parasites Not Reportable 12/20/21 04:54 Godfrey Bodies Not Reportable 12/20/21 04:54 Hem Pathologist Commnt No 12/20/21 04:54 PT 16.9 Sec. (12.2-14.9) H 01/06/22 04:06 INR 1.23 (0.87-1.13) H 01/06/22 04:06 APTT 29.2 Sec. (24.2-36.6) 11/26/21 05:00 D-Dimer 2655.00 ng/mlDDU (0-234) H 11/11/21 04:28 ABG pH 7.479 pH Units (7.350-7.450) H 12/16/21 20:52 ABG pCO2 37.5 mm Hg 12/16/21 20:52 ABG pO2 79.3 mm Hg (80.0-90.0) L 12/16/21 20:52 ABG HCO3 27.3 mmol/L (20.0-26.0) H 12/16/21 20:52 ABG O2 Saturation 97.0 % (95.0-99.0) 12/16/21 20:52 ABG O2 Content 12.3 (0.0-44) 12/16/21 20:52 ABG Base Excess 3.6 mmol/L (-2.0-3.0) H 12/16/21 20:52 ABG Hemoglobin 9.1 gm/dl (12.0-16.0) L 12/16/21 20:52 ABG Carboxyhemoglobin 1.6 % (0.0-5.0) 12/16/21 20:52 ABG Methemoglobin 0.5 % (0.0-1.5) 12/16/21 20:52 Oxyhemoglobin 94.9 % (95.0-99.0) L 12/16/21 20:52 FiO2 30 % 12/16/21 20:52 Sodium 132 mmol/L (137-145) L 01/06/22 04:06 Potassium 3.6 mmol/L (3.6-5.0) 01/06/22 04:06 Chloride 92.3 mmol/L (98-107) L 01/06/22 04:06 Carbon Dioxide 27 mmol/L (22-30) 01/06/22 04:06 Anion Gap 16 mmol/L 01/06/22 04:06 BUN 26 mg/dL (7-17) H 01/06/22 04:06 Creatinine 0.6 mg/dL (0.6-1.2) 01/06/22 04:06 Estimated GFR > 60 ml/min 01/06/22 04:06 BUN/Creatinine Ratio 43 % 01/06/22 04:06 Glucose 111 mg/dL (65-100) H 01/06/22 04:06 POC Glucose 102 mg/dL (70-105) 01/08/22 05:13 Lactic Acid 3.70 mmol/L (0.7-2.0) H* 11/03/21 22:32 Calcium 8.7 mg/dL (8.4-10.2) 01/06/22 04:06 Phosphorus 3.80 mg/dL (2.5-4.5) 01/05/22 04:30 Magnesium 2.00 mg/dL (1.7-2.3) 01/05/22 04:30 Ferritin 52.6 ng/mL (10.0-200.0) 11/05/21 06:11 Total Bilirubin 0.50 mg/dL (0.1-1.2) 11/17/21 05:56 Direct Bilirubin < 0.2 mg/dL (0-0.2) 11/11/21 04:28 Indirect Bilirubin 0.1 mg/dL 11/11/21 04:28 AST 36 units/L (5-40) 11/17/21 05:56 ALT 47 units/L (7-56) 11/17/21 05:56 Alkaline Phosphatase 107 units/L (35-129) 11/17/21 05:56 Ammonia 42.0 umol/L (25-60) 11/10/21 14:08 Lactate Dehydrogenase 187 units/L (91-180) H 11/05/21 06:11 Troponin T 0.045 ng/mL (0.00-0.029) H 11/29/21 20:15 C-Reactive Protein 22.20 mg/dL (0.00-1.30) H 11/05/21 06:11 NT-Pro-B Natriuret Pep 7895 pg/mL (0-900) H 11/03/21 22:32 Total Protein 5.1 g/dL (6.3-8.2) L 11/17/21 05:56 Albumin 2.2 g/dL (3.9-5) L 11/17/21 05:56 Albumin/Globulin Ratio 0.8 % 11/17/21 05:56 Triglycerides 59 mg/dL (2-149) 11/29/21 20:15 Cholesterol 74 mg/dL (50-199) 11/29/21 20:15 LDL Cholesterol Direct 25 mg/dL (50-130) L 11/29/21 20:15 HDL Cholesterol 41 mg/dL (40-59) 11/29/21 20:15 Cholesterol/HDL Ratio 1.80 % 11/29/21 20:15 Vitamin B12 1823 pg/mL (211-911) H 11/10/21 14:08 TSH 1.510 mlU/mL (0.270-4.200) 11/10/21 14:08 Urine Color Yellow (Yellow) 11/11/21 09:00 Urine Turbidity Slightly-cloudy (Clear) 11/11/21 09:00 Urine pH 5.0 (5.0-7.0) 11/11/21 09:00 Ur Specific [place] 1.009 (1.003-1.030) 11/11/21 09:00 Urine Protein <15 mg/dl mg/dL (Negative) 11/11/21 09:00 Urine Glucose (UA) Neg mg/dL (Negative) 11/11/21 09:00 Urine Ketones Neg mg/dL (Negative) 11/11/21 09:00 Urine Blood Mod (Negative) 11/11/21 09:00 Urine Nitrite Neg (Negative) 11/11/21 09:00 Urine Bilirubin Neg (Negative) 11/11/21 09:00 Urine Urobilinogen < 2.0 mg/dL (<2.0) 11/11/21 09:00 Ur Leukocyte Esterase Neg (Negative) 11/11/21 09:00 Urine WBC (Auto) < 1.0 /HPF (0.0-6.0) 11/11/21 09:00 Urine RBC (Auto) < 1.0 /HPF (0.0-6.0) 11/11/21 09:00 Fluid Type Pleural 01/06/22 13:40 Fluid Color Yellow 01/06/22 13:40 Fluid Appearance Hazy 01/06/22 13:40 Fluid WBC 273 /mm3 01/06/22 13:40 Fluid RBC 45 /mm3 01/06/22 13:40 Fluid Seg Neutrophils 47.0 % 01/06/22 13:40 Fluid Lymphocytes 22.0 % 01/06/22 13:40 Fluid Monocytes 10.0 % 01/06/22 13:40 Fluid Eosinophils 19.0 % 01/06/22 13:40 Fluid Basophils 2.0 % 01/06/22 13:40 Vancomycin Trough 13.7 ug/mL (5.0-20.0) 01/08/22 06:33 Random Vancomycin 10.5 ug/mL (0-40.0) 01/04/22 05:00 Coronavirus (PCR) Negative (Negative) 11/10/21 08:30 Blood Type O POSITIVE 12/14/21 10:30 Antibody Screen Negative 12/14/21 10:30 Crossmatch See Detail 12/14/21 10:30 Gamble/IV: Voiding Method External Female Catheter Active Medications - Current Medications Current Medications: Generic Name Dose Route Start Last Admin Trade Name Freq PRN Reason Stop Dose Admin Acetaminophen 650 mg 12/14/21 04:12 01/01/22 11:45 Acetaminophen 325 Mg/10.15 Ml Oral Liqd Unit Dose FEEDTUBE 650 mg Q6H PRN Administration Non Cardiac Pain or Temp>100.5 Hydrocodone Bitart/Acetaminophen 1 each 11/21/21 10:00 01/08/22 08:18 Hydrocodone/Acetaminophen 10-325mg Tab FEEDTUBE 1 each TID YOSSI Administration Alprazolam 0.25 mg 12/30/21 09:00 01/08/22 05:29 Alprazolam 0.25 Mg Tab FEEDTUBE 0.25 mg Q8H PRN Administration Agitation Lipase/Protease/Amylase 1 each 11/08/21 11:09 Lipase 10,500/Protease 25,000/Amylase 43,750 (Units) Dr Lema FEEDTUBE PRN PRN For Clogged Feeding Tube Buspirone HCl 7.5 mg 12/30/21 10:00 01/08/22 11:00 Buspirone 5 Mg Tab FEEDTUBE 7.5 mg BID YOSSI Administration Dextrose 0 ml 11/10/21 10:52 12/30/21 00:48 Dextrose 10% *Hypoglycemia IV 50 ml PRN PRN Administration Hypoglycemia Docusate Sodium 100 mg 12/30/21 10:00 01/08/22 12:09 Docusate Sodium 100 Mg/10 Ml Oral Liqd FEEDTUBE Not Given BID YOSSI Furosemide 20 mg 01/08/22 10:00 01/08/22 11:00 Furosemide 20 Mg Tab PO 20 mg QDAY YOSSI Administration Gabapentin 100 mg 12/30/21 10:00 01/08/22 11:00 Gabapentin 100 Mg Cap FEEDTUBE 100 mg QDAY YOSSI Administration Hydromorphone HCl 0.5 mg 12/08/21 20:06 01/05/22 14:20 Hydromorphone 1 Mg/1 Ml Inj IV 0.5 mg Q3H PRN Administration Pain, Moderate (4-6) Hydrophilic Ointment 1 applic 11/06/21 04:02 Lip Therapy Vaseline TP Q2HR PRN Dry Lips Vancomycin HCl 1 gm in 250 mls @ 166.667 mls/hr 01/04/22 10:00 01/08/22 12:13 Vancomycin/Ns 1 Gm/250 Ml IV 01/26/22 11:29 166.667 mls/hr Q48H YOSSI Administration Lansoprazole 30 mg 11/24/21 22:00 01/08/22 11:00 Lansoprazole 30 Mg Solutab FEEDTUBE 30 mg BID YOSSI Administration Levothyroxine Sodium 125 mcg 12/31/21 06:00 01/08/22 05:01 Levothyroxine 125 Mcg Tab FEEDTUBE 125 mcg DAILY@0600 YOSSI Administration Melatonin 5 mg 12/05/21 22:00 01/07/22 22:04 Melatonin 5 Mg Tab PO 5 mg QHS YOSSI Administration Metoprolol Tartrate 6.25 mg 12/30/21 10:00 01/08/22 12:09 Metoprolol Tartrate 25 Mg Tab FEEDTUBE 6.25 mg BID YOSSI Administration Midodrine 5 mg 12/30/21 09:00 01/08/22 12:05 Midodrine 5 Mg Tab FEEDTUBE 5 mg TID@0800,1200,1600 YOSSI Administration Multi-Ingred Cream/Lotion/Oil/Oint 1 applic 11/06/21 04:02 Mineral Oil/Petrolatum, White Ophth Oint 3.5 Gm OU Q4HR PRN Dry Eye(s) Ondansetron HCl 4 mg 12/05/21 10:00 01/07/22 06:28 Ondansetron 4 Mg/2 Ml Inj IV 4 mg Q8H PRN Administration Nausea And Vomiting Polyethylene Glycol 17 gm 12/30/21 10:00 01/08/22 12:10 Polyethylene Glycol 3350 17 Gm Powder FEEDTUBE Not Given QDAY YOSSI Pravastatin Sodium 20 mg 12/30/21 22:00 01/07/22 22:04 Pravastatin 20 Mg Tab FEEDTUBE 20 mg QHS YOSSI Administration Quetiapine Fumarate 25 mg 12/30/21 10:00 01/08/22 11:00 Quetiapine 25 Mg Tab FEEDTUBE 25 mg QAM YOSSI Administration Quetiapine Fumarate 50 mg 12/30/21 22:00 01/07/22 22:04 Quetiapine 25 Mg Tab FEEDTUBE 50 mg QHS YOSSI Administration Senna 17.6 mg 12/29/21 11:00 01/08/22 12:10 Sennosides Oral Liqd 8.8 Mg/5 Ml Oral Liqd FEEDTUBE Not Given Q12HR YOSSI Simple Syrup 15 ml 11/08/21 11:09 Simple Syrup 15 Ml FEEDTUBE PRN PRN Hypoglycemia Simple Syrup 30 ml 11/08/21 11:09 Simple Syrup 15 Ml FEEDTUBE PRN PRN Hypoglycemia Sodium Bicarbonate 325 mg 11/08/21 11:09 Sodium Bicarbonate 325 Mg Tab FEEDTUBE PRN PRN For Clogged Feeding Tube Sodium Chloride 10 ml 11/04/21 10:00 01/08/22 12:14 Sodium Chloride 0.9% 10 Ml Flush Syringe IV 10 ml BID YOSSI Administration Sodium Chloride 10 ml 11/04/21 02:03 Sodium Chloride 0.9% 10 Ml Flush Syringe IV PRN PRN LINE FLUSH Spironolactone 25 mg 12/30/21 10:00 01/08/22 12:07 Spironolactone 25 Mg Tab FEEDTUBE 25 mg QDAY YOSSI Administration Sucralfate 1 gm 12/30/21 12:00 01/08/22 12:05 Sucralfate 1 Gm/10 Ml Oral Liqd FEEDTUBE 1 gm Q6HR YOSSI Administration Trazodone HCl 50 mg 12/04/21 22:00 01/07/22 22:03 Trazodone 50 Mg Tab PO 50 mg QHS YOSSI Administration Nutrition/Malnutrition Assess - Dietary Evaluation Nutrition/Malnutrition Findings: Nutrition Notes Start: 11/04/21 17:16 Freq: Status: Active Protocol: Document 01/02/22 12:11 SDALL (Rec: 01/02/22 12:17 NHALL [id number]) Nutrition Notes Initial or Follow up Reassessment Current Diagnosis Diabetes,Heart Failure, Respiratory Failure Other Pertinent Diagnosis Bacteremia, pneu, Bilat pleural effusion, Agitation/ anxiety Current Diet TF - Vital AF 1.2 at 45ml/hr Labs/Tests Na 131 K 3.5 BUN 27 Pertinent Medications 25% Human Albumin, Colace, Lasix, Reglan, Miralax, 40mEq KCl, Senokot, Sucralfate Height 5 ft Weight 73.3 kg [place] Body Weight (kg) 45.45 BMI 31.5 Weight change and time frame Current wt obtained from bed scale Weight Status Obese Subjective/Other Information Observed TF infusing at goal rate. Pt remains on vent support. Percent of energy/protein needs met: 100% energy 89% pro Burn Absent Trauma Absent #1 Nutrition Diagnosis Inadequate oral intake Diagnosis Progress(for reassessment Continues documentation) Is patient on ventilator? Yes Is Patient Ambulatory and/or Out of Bed No REE-([facility]-confined to bed) 1338.492 Kcal/Kg value to use for calculation 17 Approximate Energy Requirements Using 1246 kcal/Kg Calculation Used for Recommendations Kcal/kg Additional Notes Pro needs 2g/kg IBW: 91g/day Fluid needs per MD. Nutrition Intervention Nutrition Support: Continue Vital AF 1.2 at 45ml/ hr with 70ml water flush q4h. Kcal 1,296 Protein (gm) 81 Carbohydrates (gm) 119 Fat (gm) 58 Fluid (mL) 876 Fiber (gm) 6 Goal #1 TF tolerance Goal #2 TF to meet at least 75% energy and pro needs Follow-Up By: 01/09/22 Additional Comments F/U: stable TF, vent status, wt
--- NOTE | 2022-01-08 14:39 | Progress Note ---
Assessment and Plan Gram positive Bacteremia (MRSA) Acute respiratory failure with hypoxia, now on MVS Acute microcytic anemia Bilateral pneumonia DVT Left pleural effusion Cardiomyopathy EF 30-35% Moderate pulmonary HTN - reduced p-supp to 14 cm H2O - continue Lasix 20 mg p.o. daily - continue SBT's as tolerated - follow I's & O's and monitor electrolytes - continue daily SAT and SBT assessment as tolerated - no new issues otherwise, continue care as below; - LTAC evaluation ongoing - continue Seroquel - continue Vancomycin for MRSA bacteremia (6 weeks of therapy recommended) - prn Levophed for target MAP > 65 mmHg - continue to wean supplemental oxygen for target O2 sat's > 90% acutely - VAP bundle addressed - continue lung protective strategies - continue bronchodilators with routine trach care and pulmonary hygiene per RT - wean per pulmonary driven protocols otherwise - avoid nephrotoxins, renally dose all medications - continue accuchecks with glycemic control per SSI (While critically ill target blood glucose of 140-180 mg/dL; avoid hypoglycemia) - sedation prn for target RASS 0 to -1 - antibiotics per ID recommendations - continue to avoid benzodiazepine's, reduce the possibility of delirium - prn analgesia per CPOT score - Maintenance of sleep-wake cycle, avoid delirium - continue enteral nutritional support at goal rate as tolerated - G.I. & VTE prophylaxis - PT/OT/ROM exercises - continue mobility protocols for pressure ulcer prophylaxis - Monitor hemodynamics closely - continue other care per attending / other consultants - discharge planning ongoing concurrently COVID SPECIFIC INTERVENTIONS - COVID-19 PCR negative .... Re-evaluate in am & prn CONDITION: CRITICAL PROGNOSIS: GUARDED CODE STATUS: FULL CODE The high probability of a clinically significant, sudden or life-threatening deterioration of the [respiratory, cardiovascular & neurologic] system(s) required my full and direct attention, intervention and personal management. The aggregate critical care time was [32] minutes without overlap. Time includes spent on; [x] Data Review and interpretation [x] Patient assessment and monitoring of vital signs [x] Documentation [x] Medication orders and management Subjective Date of service: 01/08/22 Principal diagnosis: Septic shock; AHRF; Anemia; Pneumonia; pleural effusion; HFrEF; Pulm HTN Interval history: Patient is seen today for: Septic shock; Acute hypoxemic respiratory failure; Anemia; Bilateral pneumonia; Left pleural effusion; HFrEF 30-35%; Pulm HTN RVSP 49 Seen and examined at bedside; 24hour events reviewed; nursing and respiratory care staff consulted; no adverse overnight events reported to me; resting in bed; tolerating SBT even better today but with p-supp @ 18 cm H2O; denies N/V/F/C Objective Vital Signs - 12hr 01/08/22 01/08/22 01/08/22 03:00 03:10 04:00 Temperature 97.6 F Pulse Rate 60 62 60 Pulse Rate [ 62 From Monitor] Respiratory 15 15 13 Rate Blood Pressure 124/67 126/53 O2 Sat by Pulse 97 100 100 Oximetry O2 Sat by Pulse Oximetry [ Assessment] 01/08/22 01/08/22 01/08/22 04:52 04:57 05:00 Temperature Pulse Rate 60 60 Pulse Rate [ From Monitor] Respiratory 14 Rate Blood Pressure 126/53 130/55 O2 Sat by Pulse 99 95 Oximetry O2 Sat by Pulse 99 Oximetry [ Assessment] 01/08/22 01/08/22 01/08/22 06:01 07:01 07:29 Temperature 97.9 F Pulse Rate 60 63 Pulse Rate [ From Monitor] Respiratory 15 13 Rate Blood Pressure 104/14 101/73 O2 Sat by Pulse 99 100 Oximetry O2 Sat by Pulse Oximetry [ Assessment] 01/08/22 01/08/22 01/08/22 08:00 08:01 08:15 Temperature Pulse Rate 63 65 Pulse Rate [ 62 From Monitor] Respiratory 15 14 Rate Blood Pressure 101/73 O2 Sat by Pulse 100 100 Oximetry O2 Sat by Pulse 99 Oximetry [ Assessment] 01/08/22 01/08/22 01/08/22 08:50 09:00 10:00 Temperature Pulse Rate 63 61 60 Pulse Rate [ From Monitor] Respiratory 12 13 19 Rate Blood Pressure 101/73 114/43 112/46 O2 Sat by Pulse 97 80 L 100 Oximetry O2 Sat by Pulse Oximetry [ Assessment] 01/08/22 01/08/22 01/08/22 11:00 12:00 12:02 Temperature 98.9 F Pulse Rate 60 63 Pulse Rate [ From Monitor] Respiratory 19 14 Rate Blood Pressure 118/50 114/47 O2 Sat by Pulse 100 100 Oximetry O2 Sat by Pulse Oximetry [ Assessment] 01/08/22 01/08/22 01/08/22 12:07 12:09 13:00 Temperature Pulse Rate 62 62 64 Pulse Rate [ From Monitor] Respiratory 18 Rate Blood Pressure 114/47 114/47 123/57 O2 Sat by Pulse 99 Oximetry O2 Sat by Pulse Oximetry [ Assessment] 01/08/22 13:45 Temperature Pulse Rate 64 Pulse Rate [ From Monitor] Respiratory 19 Rate Blood Pressure 123/57 O2 Sat by Pulse 100 Oximetry O2 Sat by Pulse Oximetry [ Assessment] Constitutional: alert, appears uncomfortable, other (trach to MVS, frail elderly woman with mildly increased respiratory effort at rest on MVS) Eyes: non-icteric ENT: oropharynx moist, other (+ Midline tracheostomy with minimal non bloody secretions) Neck: supple, no lymphadenopathy, no JVD Effort: mildly labored Ascultation: Bilateral: diminished breath sounds, rhonchi Percussion: Bilateral: not dull Cardiovascular: regular rate and rhythm, other (S1,S2) Gastrointestinal: normoactive bowel sounds, soft, non-tender, non-distended (protuberant) Integumentary: normal Extremities: no cyanosis, pink and warm, pulses normal, edema Neurologic: normal mental status, non-focal exam (grossly), pupils equal and round, motor strength normal and Psychiatric: mood appropriate, affect normal CBC and BMP: 01/06/22 04:06 01/06/22 04:06 ABG, PT/INR, D-dimer: ABG ABG pH 7.479 pH Units (7.350-7.450) H 12/16/21 20:52 ABG pCO2 37.5 mm Hg 12/16/21 20:52 ABG pO2 79.3 mm Hg (80.0-90.0) L 12/16/21 20:52 ABG O2 Saturation 97.0 % (95.0-99.0) 12/16/21 20:52 PT/INR, D-dimer PT 16.9 Sec. (12.2-14.9) H 01/06/22 04:06 INR 1.23 (0.87-1.13) H 01/06/22 04:06 D-Dimer 2655.00 ng/mlDDU (0-234) H 11/11/21 04:28 Abnormal lab findings: Abnormal Labs 11/03/21 11/03/21 11/03/21 22:32 22:32 22:32 WBC 29.3 H RBC 2.93 L Hgb 6.1 L Hct 21.9 L MCV 75 L MCH 21 L MCHC 28 L RDW 19.7 H Plt Count Seg Neuts % (Manual) 97.0 H Lymphocytes % (Manual) 3.0 L Seg Neutrophils # Man 28.4 H Lymphocytes # (Manual) 0.9 L Monocytes # (Manual) PT 18.6 H INR 1.40 H D-Dimer ABG pH ABG pO2 ABG HCO3 ABG O2 Saturation ABG Base Excess ABG Hemoglobin Oxyhemoglobin Sodium Potassium Chloride Carbon Dioxide 20 L BUN 33 H Creatinine Glucose 119 H POC Glucose Lactic Acid Calcium 8.3 L Phosphorus Magnesium AST ALT Alkaline Phosphatase Lactate Dehydrogenase Troponin T 0.035 H C-Reactive Protein NT-Pro-B Natriuret Pep Total Protein Albumin LDL Cholesterol Direct 34 L Vitamin B12 Vancomycin Trough Crossmatch 11/03/21 11/03/21 11/03/21 22:32 22:32 23:57 WBC RBC Hgb Hct MCV MCH MCHC RDW Plt Count Seg Neuts % (Manual) Lymphocytes % (Manual) Seg Neutrophils # Man Lymphocytes # (Manual) Monocytes # (Manual) PT INR D-Dimer ABG pH ABG pO2 ABG HCO3 ABG O2 Saturation ABG Base Excess ABG Hemoglobin Oxyhemoglobin Sodium Potassium Chloride Carbon Dioxide BUN Creatinine Glucose POC Glucose Lactic Acid 3.70 H* Calcium Phosphorus Magnesium AST ALT Alkaline Phosphatase 139 H Lactate Dehydrogenase Troponin T C-Reactive Protein NT-Pro-B Natriuret Pep 7895 H Total Protein Albumin 3.5 L LDL Cholesterol Direct Vitamin B12 Vancomycin Trough Crossmatch See Detail 11/04/21 11/04/21 11/05/21 00:59 13:58 00:51 WBC 27.9 H RBC 3.28 L Hgb 7.3 L Hct 25.5 L MCV 78 L MCH 22 L MCHC 29 L RDW 19.1 H Plt Count Seg Neuts % (Manual) 96.0 H Lymphocytes % (Manual) 2.0 L Seg Neutrophils # Man 26.8 H Lymphocytes # (Manual) 0.6 L Monocytes # (Manual) PT INR D-Dimer ABG pH ABG pO2 ABG HCO3 ABG O2 Saturation ABG Base Excess ABG Hemoglobin Oxyhemoglobin Sodium Potassium Chloride Carbon Dioxide BUN Creatinine Glucose POC Glucose Lactic Acid Calcium Phosphorus Magnesium AST ALT Alkaline Phosphatase Lactate Dehydrogenase Troponin T 0.051 H D 0.032 H D C-Reactive Protein NT-Pro-B Natriuret Pep Total Protein Albumin LDL Cholesterol Direct Vitamin B12 Vancomycin Trough Crossmatch 11/05/21 11/05/21 11/05/21 06:11 06:11 06:11 WBC 31.8 H RBC 3.57 L Hgb 8.0 L Hct 27.7 L MCV 78 L MCH 22 L MCHC 29 L RDW 19.2 H Plt Count Seg Neuts % (Manual) 91.0 H Lymphocytes % (Manual) 4.5 L Seg Neutrophils # Man 28.9 H Lymphocytes # (Manual) Monocytes # (Manual) 1.1 H PT INR D-Dimer 1494.53 H ABG pH ABG pO2 ABG HCO3 ABG O2 Saturation ABG Base Excess ABG Hemoglobin Oxyhemoglobin Sodium Potassium Chloride Carbon Dioxide 19 L BUN 42 H Creatinine Glucose 115 H POC Glucose Lactic Acid Calcium Phosphorus Magnesium AST 43 H ALT Alkaline Phosphatase Lactate Dehydrogenase 187 H Troponin T C-Reactive Protein 22.20 H NT-Pro-B Natriuret Pep Total Protein 6.0 L Albumin 3.2 L LDL Cholesterol Direct Vitamin B12 Vancomycin Trough Crossmatch 11/05/21 11/05/21 11/06/21 06:11 12:15 00:30 WBC RBC Hgb Hct MCV MCH MCHC RDW Plt Count Seg Neuts % (Manual) Lymphocytes % (Manual) Seg Neutrophils # Man Lymphocytes # (Manual) Monocytes # (Manual) PT INR D-Dimer ABG pH ABG pO2 ABG HCO3 ABG O2 Saturation ABG Base Excess ABG Hemoglobin Oxyhemoglobin Sodium Potassium Chloride Carbon Dioxide BUN Creatinine Glucose POC Glucose 113 H 69 L Lactic Acid Calcium Phosphorus Magnesium AST ALT Alkaline Phosphatase Lactate Dehydrogenase Troponin T 0.033 H C-Reactive Protein NT-Pro-B Natriuret Pep Total Protein Albumin LDL Cholesterol Direct Vitamin B12 Vancomycin Trough Crossmatch 11/06/21 11/06/21 11/06/21 05:50 15:50 15:50 WBC 25.5 H RBC 3.62 L Hgb 8.0 L Hct 27.5 L MCV 76 L MCH 22 L MCHC 29 L RDW 19.6 H Plt Count Seg Neuts % (Manual) 92.0 H Lymphocytes % (Manual) 5.0 L Seg Neutrophils # Man 23.5 H Lymphocytes # (Manual) Monocytes # (Manual) PT INR D-Dimer ABG pH 7.305 L ABG pO2 ABG HCO3 15.8 L ABG O2 Saturation ABG Base Excess -9.6 L ABG Hemoglobin 8.6 L Oxyhemoglobin 94.6 L Sodium Potassium Chloride 113.9 H Carbon Dioxide 17 L BUN 56 H Creatinine Glucose 114 H POC Glucose Lactic Acid Calcium 7.9 L Phosphorus Magnesium AST 1410 H ALT 934 H Alkaline Phosphatase 142 H Lactate Dehydrogenase Troponin T C-Reactive Protein NT-Pro-B Natriuret Pep Total Protein 5.0 L Albumin 2.6 L LDL Cholesterol Direct Vitamin B12 Vancomycin Trough Crossmatch 11/07/21 11/07/21 11/07/21 03:30 04:50 08:07 WBC RBC Hgb Hct MCV MCH MCHC RDW Plt Count Seg Neuts % (Manual) Lymphocytes % (Manual) Seg Neutrophils # Man Lymphocytes # (Manual) Monocytes # (Manual) PT INR D-Dimer ABG pH ABG pO2 296.9 H ABG HCO3 18.1 L ABG O2 Saturation 99.5 H ABG Base Excess -5.9 L ABG Hemoglobin 7.6 L Oxyhemoglobin Sodium Potassium Chloride Carbon Dioxide BUN Creatinine Glucose POC Glucose 106 H 108 H Lactic Acid Calcium Phosphorus Magnesium AST ALT Alkaline Phosphatase Lactate Dehydrogenase Troponin T C-Reactive Protein NT-Pro-B Natriuret Pep Total Protein Albumin LDL Cholesterol Direct Vitamin B12 Vancomycin Trough Crossmatch 11/08/21 11/08/21 11/08/21 03:10 18:05 23:43 WBC RBC Hgb Hct MCV MCH MCHC RDW Plt Count Seg Neuts % (Manual) Lymphocytes % (Manual) Seg Neutrophils # Man Lymphocytes # (Manual) Monocytes # (Manual) PT INR D-Dimer ABG pH ABG pO2 127.4 H ABG HCO3 ABG O2 Saturation ABG Base Excess -3.4 L ABG Hemoglobin 7.4 L Oxyhemoglobin Sodium Potassium Chloride Carbon Dioxide BUN Creatinine Glucose POC Glucose 113 H 141 H Lactic Acid Calcium Phosphorus Magnesium AST ALT Alkaline Phosphatase Lactate Dehydrogenase Troponin T C-Reactive Protein NT-Pro-B Natriuret Pep Total Protein Albumin LDL Cholesterol Direct Vitamin B12 Vancomycin Trough Crossmatch 11/08/21 11/08/21 11/09/21 Unknown Unknown 02:00 WBC 14.5 H RBC 3.35 L Hgb 7.5 L 8.1 L Hct 25.4 L 27.6 L MCV 76 L 76 L MCH 23 L 22 L MCHC RDW 19.9 H 19.9 H Plt Count Seg Neuts % (Manual) Lymphocytes % (Manual) Seg Neutrophils # Man Lymphocytes # (Manual) Monocytes # (Manual) PT INR D-Dimer ABG pH ABG pO2 ABG HCO3 ABG O2 Saturation ABG Base Excess ABG Hemoglobin Oxyhemoglobin Sodium 154 H D Potassium 3.3 L Chloride 120.7 H Carbon Dioxide 20 L BUN 38 H Creatinine Glucose POC Glucose Lactic Acid Calcium 8.3 L Phosphorus Magnesium AST ALT Alkaline Phosphatase Lactate Dehydrogenase Troponin T C-Reactive Protein NT-Pro-B Natriuret Pep Total Protein Albumin LDL Cholesterol Direct Vitamin B12 Vancomycin Trough Crossmatch 11/09/21 11/09/21 11/09/21 02:00 02:31 05:12 WBC RBC Hgb Hct MCV MCH MCHC RDW Plt Count Seg Neuts % (Manual) Lymphocytes % (Manual) Seg Neutrophils # Man Lymphocytes # (Manual) Monocytes # (Manual) PT INR D-Dimer ABG pH 7.479 H ABG pO2 121.3 H ABG HCO3 ABG O2 Saturation ABG Base Excess ABG Hemoglobin 7.3 L Oxyhemoglobin Sodium Potassium Chloride 112.5 H Carbon Dioxide BUN 33 H Creatinine Glucose 161 H POC Glucose 135 H Lactic Acid Calcium Phosphorus Magnesium AST 251 H ALT 481 H Alkaline Phosphatase Lactate Dehydrogenase Troponin T C-Reactive Protein NT-Pro-B Natriuret Pep Total Protein 5.0 L Albumin 2.8 L LDL Cholesterol Direct Vitamin B12 Vancomycin Trough Crossmatch 11/09/21 11/09/21 11/09/21 11:33 16:32 23:28 WBC RBC Hgb Hct MCV MCH MCHC RDW Plt Count Seg Neuts % (Manual) Lymphocytes % (Manual) Seg Neutrophils # Man Lymphocytes # (Manual) Monocytes # (Manual) PT INR D-Dimer ABG pH ABG pO2 ABG HCO3 ABG O2 Saturation ABG Base Excess ABG Hemoglobin Oxyhemoglobin Sodium Potassium Chloride Carbon Dioxide BUN Creatinine Glucose POC Glucose 132 H 133 H 143 H Lactic Acid Calcium Phosphorus Magnesium AST ALT Alkaline Phosphatase Lactate Dehydrogenase Troponin T C-Reactive Protein NT-Pro-B Natriuret Pep Total Protein Albumin LDL Cholesterol Direct Vitamin B12 Vancomycin Trough Crossmatch 11/10/21 11/10/21 11/10/21 04:00 04:00 05:35 WBC 16.0 H RBC 3.61 L Hgb 8.0 L Hct 27.1 L MCV 75 L MCH 22 L MCHC RDW 20.4 H Plt Count Seg Neuts % (Manual) Lymphocytes % (Manual) Seg Neutrophils # Man Lymphocytes # (Manual) Monocytes # (Manual) PT INR D-Dimer ABG pH ABG pO2 ABG HCO3 ABG O2 Saturation ABG Base Excess ABG Hemoglobin Oxyhemoglobin Sodium 149 H Potassium Chloride 114.1 H Carbon Dioxide BUN 31 H Creatinine Glucose 148 H POC Glucose 132 H Lactic Acid Calcium 8.2 L Phosphorus Magnesium AST ALT Alkaline Phosphatase Lactate Dehydrogenase Troponin T C-Reactive Protein NT-Pro-B Natriuret Pep Total Protein Albumin LDL Cholesterol Direct Vitamin B12 Vancomycin Trough Crossmatch 11/10/21 11/10/21 11/10/21 11:31 14:08 15:35 WBC RBC Hgb Hct MCV MCH MCHC RDW Plt Count Seg Neuts % (Manual) Lymphocytes % (Manual) Seg Neutrophils # Man Lymphocytes # (Manual) Monocytes # (Manual) PT INR D-Dimer ABG pH ABG pO2 126.6 H ABG HCO3 ABG O2 Saturation ABG Base Excess ABG Hemoglobin 7.4 L Oxyhemoglobin Sodium Potassium Chloride Carbon Dioxide BUN Creatinine Glucose POC Glucose 147 H Lactic Acid Calcium Phosphorus Magnesium AST ALT Alkaline Phosphatase Lactate Dehydrogenase Troponin T C-Reactive Protein NT-Pro-B Natriuret Pep Total Protein Albumin LDL Cholesterol Direct Vitamin B12 1823 H Vancomycin Trough Crossmatch 11/10/21 11/11/21 11/11/21 17:53 00:55 04:28 WBC RBC Hgb Hct MCV MCH MCHC RDW Plt Count Seg Neuts % (Manual) Lymphocytes % (Manual) Seg Neutrophils # Man Lymphocytes # (Manual) Monocytes # (Manual) PT INR D-Dimer ABG pH ABG pO2 ABG HCO3 ABG O2 Saturation ABG Base Excess ABG Hemoglobin Oxyhemoglobin Sodium 149 H Potassium Chloride 112.2 H Carbon Dioxide BUN 34 H Creatinine Glucose 148 H POC Glucose 140 H 145 H Lactic Acid Calcium 7.9 L Phosphorus Magnesium AST 53 H ALT 203 H Alkaline Phosphatase Lactate Dehydrogenase Troponin T C-Reactive Protein NT-Pro-B Natriuret Pep Total Protein 4.9 L Albumin 2.6 L LDL Cholesterol Direct Vitamin B12 Vancomycin Trough Crossmatch 11/11/21 11/11/21 11/11/21 04:28 04:28 05:28 WBC 20.9 H RBC 3.47 L Hgb 7.5 L Hct 26.0 L MCV 75 L MCH 22 L MCHC 29 L RDW 21.6 H Plt Count 132 L Seg Neuts % (Manual) Lymphocytes % (Manual) Seg Neutrophils # Man Lymphocytes # (Manual) Monocytes # (Manual) PT INR D-Dimer 2655.00 H ABG pH ABG pO2 ABG HCO3 ABG O2 Saturation ABG Base Excess ABG Hemoglobin Oxyhemoglobin Sodium Potassium Chloride Carbon Dioxide BUN Creatinine Glucose POC Glucose 154 H Lactic Acid Calcium Phosphorus Magnesium AST ALT Alkaline Phosphatase Lactate Dehydrogenase Troponin T C-Reactive Protein NT-Pro-B Natriuret Pep Total Protein Albumin LDL Cholesterol Direct Vitamin B12 Vancomycin Trough Crossmatch 11/11/21 11/11/21 11/12/21 12:38 18:13 00:14 WBC RBC Hgb Hct MCV MCH MCHC RDW Plt Count Seg Neuts % (Manual) Lymphocytes % (Manual) Seg Neutrophils # Man Lymphocytes # (Manual) Monocytes # (Manual) PT INR D-Dimer ABG pH ABG pO2 ABG HCO3 ABG O2 Saturation ABG Base Excess ABG Hemoglobin Oxyhemoglobin Sodium Potassium Chloride Carbon Dioxide BUN Creatinine Glucose POC Glucose 137 H 108 H 137 H Lactic Acid Calcium Phosphorus Magnesium AST ALT Alkaline Phosphatase Lactate Dehydrogenase Troponin T C-Reactive Protein NT-Pro-B Natriuret Pep Total Protein Albumin LDL Cholesterol Direct Vitamin B12 Vancomycin Trough Crossmatch 11/12/21 11/12/21 11/12/21 05:40 06:24 11:12 WBC RBC Hgb Hct MCV MCH MCHC RDW Plt Count Seg Neuts % (Manual) Lymphocytes % (Manual) Seg Neutrophils # Man Lymphocytes # (Manual) Monocytes # (Manual) PT INR D-Dimer ABG pH 7.586 H ABG pO2 150.6 H ABG HCO3 27.2 H ABG O2 Saturation 99.1 H ABG Base Excess 5.2 H ABG Hemoglobin 7.5 L Oxyhemoglobin Sodium Potassium Chloride Carbon Dioxide BUN Creatinine Glucose POC Glucose 132 H 140 H Lactic Acid Calcium Phosphorus Magnesium AST ALT Alkaline Phosphatase Lactate Dehydrogenase Troponin T C-Reactive Protein NT-Pro-B Natriuret Pep Total Protein Albumin LDL Cholesterol Direct Vitamin B12 Vancomycin Trough Crossmatch 11/12/21 11/12/21 11/12/21 14:50 14:50 17:13 WBC 19.8 H RBC 3.27 L Hgb 7.1 L Hct 24.5 L MCV 75 L MCH 22 L MCHC 29 L RDW 22.3 H Plt Count Seg Neuts % (Manual) Lymphocytes % (Manual) Seg Neutrophils # Man Lymphocytes # (Manual) Monocytes # (Manual) PT INR D-Dimer ABG pH ABG pO2 ABG HCO3 ABG O2 Saturation ABG Base Excess ABG Hemoglobin Oxyhemoglobin Sodium 150 H Potassium 3.3 L Chloride 112.0 H Carbon Dioxide BUN 40 H Creatinine Glucose 151 H POC Glucose 121 H Lactic Acid Calcium 7.4 L Phosphorus 1.70 L Magnesium 1.40 L AST ALT Alkaline Phosphatase Lactate Dehydrogenase Troponin T C-Reactive Protein NT-Pro-B Natriuret Pep Total Protein Albumin LDL Cholesterol Direct Vitamin B12 Vancomycin Trough Crossmatch 11/12/21 11/13/21 11/13/21 23:19 05:34 06:30 WBC RBC Hgb Hct MCV MCH MCHC RDW Plt Count Seg Neuts % (Manual) Lymphocytes % (Manual) Seg Neutrophils # Man Lymphocytes # (Manual) Monocytes # (Manual) PT INR D-Dimer ABG pH ABG pO2 ABG HCO3 ABG O2 Saturation ABG Base Excess ABG Hemoglobin Oxyhemoglobin Sodium 149 H Potassium Chloride 60.0 L Carbon Dioxide BUN 40 H Creatinine Glucose 146 H POC Glucose 113 H 132 H Lactic Acid Calcium 7.3 L Phosphorus Magnesium 2.40 H AST ALT 72 H Alkaline Phosphatase Lactate Dehydrogenase Troponin T C-Reactive Protein NT-Pro-B Natriuret Pep Total Protein 5.2 L Albumin 2.2 L LDL Cholesterol Direct Vitamin B12 Vancomycin Trough Crossmatch 11/13/21 11/13/21 11/13/21 06:30 08:30 11:19 WBC 21.2 H RBC 3.12 L Hgb 6.8 L Hct 23.2 L MCV 74 L MCH 22 L MCHC 29 L RDW 22.2 H Plt Count 135 L Seg Neuts % (Manual) Lymphocytes % (Manual) Seg Neutrophils # Man Lymphocytes # (Manual) Monocytes # (Manual) PT INR D-Dimer ABG pH ABG pO2 ABG HCO3 ABG O2 Saturation ABG Base Excess ABG Hemoglobin Oxyhemoglobin Sodium Potassium Chloride Carbon Dioxide BUN Creatinine Glucose POC Glucose 136 H Lactic Acid Calcium Phosphorus Magnesium AST ALT Alkaline Phosphatase Lactate Dehydrogenase Troponin T C-Reactive Protein NT-Pro-B Natriuret Pep Total Protein Albumin LDL Cholesterol Direct Vitamin B12 Vancomycin Trough Crossmatch See Detail 11/13/21 11/14/21 11/14/21 18:21 00:01 04:46 WBC 20.0 H RBC 3.41 L Hgb 7.9 L Hct 26.8 L MCV MCH 23 L MCHC 29 L RDW 24.0 H Plt Count Seg Neuts % (Manual) Lymphocytes % (Manual) Seg Neutrophils # Man Lymphocytes # (Manual) Monocytes # (Manual) PT INR D-Dimer ABG pH ABG pO2 ABG HCO3 ABG O2 Saturation ABG Base Excess ABG Hemoglobin Oxyhemoglobin Sodium Potassium Chloride Carbon Dioxide BUN Creatinine Glucose POC Glucose 149 H 141 H Lactic Acid Calcium Phosphorus Magnesium AST ALT Alkaline Phosphatase Lactate Dehydrogenase Troponin T C-Reactive Protein NT-Pro-B Natriuret Pep Total Protein Albumin LDL Cholesterol Direct Vitamin B12 Vancomycin Trough Crossmatch 11/14/21 11/14/21 11/14/21 04:46 05:10 11:10 WBC RBC Hgb Hct MCV MCH MCHC RDW Plt Count Seg Neuts % (Manual) Lymphocytes % (Manual) Seg Neutrophils # Man Lymphocytes # (Manual) Monocytes # (Manual) PT INR D-Dimer ABG pH ABG pO2 ABG HCO3 ABG O2 Saturation ABG Base Excess ABG Hemoglobin Oxyhemoglobin Sodium 148 H Potassium Chloride 113.1 H Carbon Dioxide BUN 43 H Creatinine Glucose 140 H POC Glucose 132 H 133 H Lactic Acid Calcium 7.5 L Phosphorus Magnesium AST ALT Alkaline Phosphatase Lactate Dehydrogenase Troponin T C-Reactive Protein NT-Pro-B Natriuret Pep Total Protein Albumin LDL Cholesterol Direct Vitamin B12 Vancomycin Trough Crossmatch 11/14/21 11/14/21 11/14/21 16:14 17:48 23:23 WBC RBC Hgb Hct MCV MCH MCHC RDW Plt Count Seg Neuts % (Manual) Lymphocytes % (Manual) Seg Neutrophils # Man Lymphocytes # (Manual) Monocytes # (Manual) PT INR D-Dimer ABG pH ABG pO2 ABG HCO3 28.0 H ABG O2 Saturation ABG Base Excess 3.1 H ABG Hemoglobin 5.8 L Oxyhemoglobin 94.8 L Sodium Potassium Chloride Carbon Dioxide BUN Creatinine Glucose POC Glucose 130 H 136 H Lactic Acid Calcium Phosphorus Magnesium AST ALT Alkaline Phosphatase Lactate Dehydrogenase Troponin T C-Reactive Protein NT-Pro-B Natriuret Pep Total Protein Albumin LDL Cholesterol Direct Vitamin B12 Vancomycin Trough Crossmatch 11/15/21 11/15/21 11/15/21 05:20 05:50 05:50 WBC 19.9 H RBC 3.50 L Hgb 8.2 L Hct 27.9 L MCV MCH 23 L MCHC 29 L RDW 24.9 H Plt Count Seg Neuts % (Manual) Lymphocytes % (Manual) Seg Neutrophils # Man Lymphocytes # (Manual) Monocytes # (Manual) PT INR D-Dimer ABG pH ABG pO2 ABG HCO3 ABG O2 Saturation ABG Base Excess ABG Hemoglobin Oxyhemoglobin Sodium 149 H Potassium Chloride 112.0 H Carbon Dioxide BUN 48 H Creatinine Glucose 152 H POC Glucose 137 H Lactic Acid Calcium 7.9 L Phosphorus Magnesium AST ALT Alkaline Phosphatase Lactate Dehydrogenase Troponin T C-Reactive Protein NT-Pro-B Natriuret Pep Total Protein Albumin LDL Cholesterol Direct Vitamin B12 Vancomycin Trough Crossmatch 11/15/21 11/15/21 11/15/21 12:12 17:07 23:24 WBC RBC Hgb Hct MCV MCH MCHC RDW Plt Count Seg Neuts % (Manual) Lymphocytes % (Manual) Seg Neutrophils # Man Lymphocytes # (Manual) Monocytes # (Manual) PT INR D-Dimer ABG pH ABG pO2 ABG HCO3 ABG O2 Saturation ABG Base Excess ABG Hemoglobin Oxyhemoglobin Sodium Potassium Chloride Carbon Dioxide BUN Creatinine Glucose POC Glucose 114 H 135 H 123 H Lactic Acid Calcium Phosphorus Magnesium AST ALT Alkaline Phosphatase Lactate Dehydrogenase Troponin T C-Reactive Protein NT-Pro-B Natriuret Pep Total Protein Albumin LDL Cholesterol Direct Vitamin B12 Vancomycin Trough Crossmatch 11/16/21 11/16/21 11/16/21 05:21 10:00 10:00 WBC 21.7 H RBC 2.57 L Hgb 6.0 L Hct 20.2 L D MCV MCH 24 L MCHC RDW 26.3 H Plt Count Seg Neuts % (Manual) Lymphocytes % (Manual) Seg Neutrophils # Man Lymphocytes # (Manual) Monocytes # (Manual) PT INR D-Dimer ABG pH ABG pO2 ABG HCO3 ABG O2 Saturation ABG Base Excess ABG Hemoglobin Oxyhemoglobin Sodium 153 H Potassium Chloride 114.9 H Carbon Dioxide BUN 74 H Creatinine Glucose 155 H POC Glucose 127 H Lactic Acid Calcium 8.1 L Phosphorus Magnesium AST ALT Alkaline Phosphatase Lactate Dehydrogenase Troponin T C-Reactive Protein NT-Pro-B Natriuret Pep Total Protein Albumin LDL Cholesterol Direct Vitamin B12 Vancomycin Trough Crossmatch 11/16/21 11/16/21 11/16/21 11:34 14:00 15:25 WBC 17.2 H RBC 2.08 L Hgb 4.7 L* Hct 16.2 L* MCV 78 L MCH 23 L MCHC 29 L RDW 26.0 H Plt Count Seg Neuts % (Manual) 87.0 H Lymphocytes % (Manual) 8.0 L Seg Neutrophils # Man 15.0 H Lymphocytes # (Manual) Monocytes # (Manual) 0.9 H PT INR D-Dimer ABG pH ABG pO2 ABG HCO3 ABG O2 Saturation ABG Base Excess ABG Hemoglobin Oxyhemoglobin Sodium Potassium Chloride Carbon Dioxide BUN Creatinine Glucose POC Glucose 131 H Lactic Acid Calcium Phosphorus Magnesium AST ALT Alkaline Phosphatase Lactate Dehydrogenase Troponin T C-Reactive Protein NT-Pro-B Natriuret Pep Total Protein Albumin LDL Cholesterol Direct Vitamin B12 Vancomycin Trough Crossmatch See Detail 11/16/21 11/16/21 11/16/21 15:25 17:21 22:43 WBC RBC Hgb 8.6 L D Hct 27.7 L D MCV MCH MCHC RDW Plt Count Seg Neuts % (Manual) Lymphocytes % (Manual) Seg Neutrophils # Man Lymphocytes # (Manual) Monocytes # (Manual) PT INR D-Dimer ABG pH ABG pO2 ABG HCO3 ABG O2 Saturation ABG Base Excess ABG Hemoglobin Oxyhemoglobin Sodium 148 H Potassium Chloride 113.2 H Carbon Dioxide BUN 84 H Creatinine Glucose 164 H POC Glucose 124 H Lactic Acid Calcium 7.6 L Phosphorus Magnesium AST ALT Alkaline Phosphatase Lactate Dehydrogenase Troponin T C-Reactive Protein NT-Pro-B Natriuret Pep Total Protein Albumin LDL Cholesterol Direct Vitamin B12 Vancomycin Trough Crossmatch 11/16/21 11/17/21 11/17/21 23:07 05:33 05:56 WBC 25.1 H RBC 3.47 L Hgb 8.7 L Hct 28.5 L MCV MCH 25 L MCHC RDW 22.3 H Plt Count Seg Neuts % (Manual) Lymphocytes % (Manual) Seg Neutrophils # Man Lymphocytes # (Manual) Monocytes # (Manual) PT INR D-Dimer ABG pH ABG pO2 ABG HCO3 ABG O2 Saturation ABG Base Excess ABG Hemoglobin Oxyhemoglobin Sodium Potassium Chloride Carbon Dioxide BUN Creatinine Glucose POC Glucose 128 H 133 H Lactic Acid Calcium Phosphorus Magnesium AST ALT Alkaline Phosphatase Lactate Dehydrogenase Troponin T C-Reactive Protein NT-Pro-B Natriuret Pep Total Protein Albumin LDL Cholesterol Direct Vitamin B12 Vancomycin Trough Crossmatch 11/17/21 11/17/2122 05:56 11:00 11:55 WBC RBC Hgb 8.3 L Hct 26.9 L MCV MCH MCHC RDW Plt Count Seg Neuts % (Manual) Lymphocytes % (Manual) Seg Neutrophils # Man Lymphocytes # (Manual) Monocytes # (Manual) PT INR D-Dimer ABG pH ABG pO2 ABG HCO3 ABG O2 Saturation ABG Base Excess ABG Hemoglobin Oxyhemoglobin Sodium 151 H Potassium Chloride 113.6 H Carbon Dioxide BUN 85 H Creatinine Glucose 132 H POC Glucose 121 H Lactic Acid Calcium 7.8 L Phosphorus Magnesium AST ALT Alkaline Phosphatase Lactate Dehydrogenase Troponin T C-Reactive Protein NT-Pro-B Natriuret Pep Total Protein 5.1 L Albumin 2.2 L LDL Cholesterol Direct Vitamin B12 Vancomycin Trough Crossmatch 11/17/21 11/17/21 11/18/21 18:04 18:55 00:26 WBC RBC Hgb 7.5 L 7.1 L Hct 24.8 L 23.6 L MCV MCH MCHC RDW Plt Count Seg Neuts % (Manual) Lymphocytes % (Manual) Seg Neutrophils # Man Lymphocytes # (Manual) Monocytes # (Manual) PT INR D-Dimer ABG pH ABG pO2 ABG HCO3 ABG O2 Saturation ABG Base Excess ABG Hemoglobin Oxyhemoglobin Sodium Potassium Chloride Carbon Dioxide BUN Creatinine Glucose POC Glucose 144 H Lactic Acid Calcium Phosphorus Magnesium AST ALT Alkaline Phosphatase Lactate Dehydrogenase Troponin T C-Reactive Protein NT-Pro-B Natriuret Pep Total Protein Albumin LDL Cholesterol Direct Vitamin B12 Vancomycin Trough Crossmatch 11/18/21 11/18/21 11/18/21 00:43 05:10 05:10 WBC 12.5 H RBC 2.39 L Hgb 6.1 L Hct 20.2 L MCV MCH 25 L MCHC RDW 23.2 H Plt Count Seg Neuts % (Manual) Lymphocytes % (Manual) Seg Neutrophils # Man Lymphocytes # (Manual) Monocytes # (Manual) PT INR D-Dimer ABG pH ABG pO2 ABG HCO3 ABG O2 Saturation ABG Base Excess ABG Hemoglobin Oxyhemoglobin Sodium 131 L D Potassium 2.9 L* D Chloride 97.8 L Carbon Dioxide BUN 58 H Creatinine Glucose 665 H* POC Glucose 139 H Lactic Acid Calcium 7.0 L Phosphorus 2.20 L D Magnesium 1.50 L AST ALT Alkaline Phosphatase Lactate Dehydrogenase Troponin T C-Reactive Protein NT-Pro-B Natriuret Pep Total Protein Albumin LDL Cholesterol Direct Vitamin B12 Vancomycin Trough Crossmatch 11/18/21 11/18/21 11/18/21 05:23 07:10 10:45 WBC RBC Hgb Hct MCV MCH MCHC RDW Plt Count Seg Neuts % (Manual) Lymphocytes % (Manual) Seg Neutrophils # Man Lymphocytes # (Manual) Monocytes # (Manual) PT INR D-Dimer ABG pH ABG pO2 ABG HCO3 ABG O2 Saturation ABG Base Excess ABG Hemoglobin Oxyhemoglobin Sodium 148 H D Potassium 3.1 L Chloride 111.9 H Carbon Dioxide BUN 63 H Creatinine Glucose 141 H POC Glucose 124 H Lactic Acid Calcium 8.1 L D Phosphorus Magnesium AST ALT Alkaline Phosphatase Lactate Dehydrogenase Troponin T C-Reactive Protein NT-Pro-B Natriuret Pep Total Protein Albumin LDL Cholesterol Direct Vitamin B12 Vancomycin Trough Crossmatch See Detail 11/18/21 11/19/21 11/19/21 11:57 00:19 04:55 WBC RBC 3.35 L Hgb 9.0 L 8.9 L Hct 28.3 L D 28.1 L MCV MCH 27 L MCHC RDW 20.3 H Plt Count Seg Neuts % (Manual) Lymphocytes % (Manual) Seg Neutrophils # Man Lymphocytes # (Manual) Monocytes # (Manual) PT INR D-Dimer ABG pH ABG pO2 ABG HCO3 ABG O2 Saturation ABG Base Excess ABG Hemoglobin Oxyhemoglobin Sodium Potassium Chloride Carbon Dioxide BUN Creatinine Glucose POC Glucose 119 H Lactic Acid Calcium Phosphorus Magnesium AST ALT Alkaline Phosphatase Lactate Dehydrogenase Troponin T C-Reactive Protein NT-Pro-B Natriuret Pep Total Protein Albumin LDL Cholesterol Direct Vitamin B12 Vancomycin Trough Crossmatch 11/19/21 11/19/21 11/20/21 04:55 05:42 00:55 WBC RBC Hgb 9.0 L Hct 28.6 L MCV MCH MCHC RDW Plt Count Seg Neuts % (Manual) Lymphocytes % (Manual) Seg Neutrophils # Man Lymphocytes # (Manual) Monocytes # (Manual) PT INR D-Dimer ABG pH ABG pO2 ABG HCO3 ABG O2 Saturation ABG Base Excess ABG Hemoglobin Oxyhemoglobin Sodium Potassium 3.5 L Chloride 108.6 H Carbon Dioxide BUN 47 H Creatinine Glucose 207 H POC Glucose 63 L Lactic Acid Calcium 7.1 L Phosphorus Magnesium AST ALT Alkaline Phosphatase Lactate Dehydrogenase Troponin T C-Reactive Protein NT-Pro-B Natriuret Pep Total Protein Albumin LDL Cholesterol Direct Vitamin B12 Vancomycin Trough Crossmatch 11/20/21 11/20/21 11/20/21 05:40 05:40 Unknown WBC RBC 3.40 L Hgb 9.1 L Hct 28.8 L MCV MCH 27 L MCHC RDW 20.7 H Plt Count Seg Neuts % (Manual) Lymphocytes % (Manual) Seg Neutrophils # Man Lymphocytes # (Manual) Monocytes # (Manual) PT INR D-Dimer ABG pH ABG pO2 ABG HCO3 ABG O2 Saturation ABG Base Excess -2.7 L ABG Hemoglobin 9.5 L Oxyhemoglobin 94.3 L Sodium Potassium 3.5 L Chloride 108.9 H Carbon Dioxide BUN 37 H Creatinine Glucose 117 H POC Glucose Lactic Acid Calcium 7.5 L Phosphorus Magnesium AST ALT Alkaline Phosphatase Lactate Dehydrogenase Troponin T C-Reactive Protein NT-Pro-B Natriuret Pep Total Protein Albumin LDL Cholesterol Direct Vitamin B12 Vancomycin Trough Crossmatch 11/21/21 11/21/21 11/21/21 04:30 04:30 16:00 WBC RBC 3.25 L Hgb 8.6 L Hct 28.1 L MCV MCH 26 L MCHC RDW 20.7 H Plt Count Seg Neuts % (Manual) Lymphocytes % (Manual) Seg Neutrophils # Man Lymphocytes # (Manual) Monocytes # (Manual) PT INR D-Dimer ABG pH ABG pO2 114.2 H ABG HCO3 ABG O2 Saturation ABG Base Excess ABG Hemoglobin 9.1 L Oxyhemoglobin Sodium 134 L Potassium Chloride Carbon Dioxide 20 L BUN 34 H Creatinine Glucose POC Glucose Lactic Acid Calcium 7.1 L Phosphorus Magnesium AST ALT Alkaline Phosphatase Lactate Dehydrogenase Troponin T C-Reactive Protein NT-Pro-B Natriuret Pep Total Protein Albumin LDL Cholesterol Direct Vitamin B12 Vancomycin Trough Crossmatch 11/22/21 11/22/21 11/22/21 07:07 07:07 23:54 WBC RBC 3.30 L Hgb 9.0 L Hct 28.5 L MCV MCH 27 L MCHC RDW 21.0 H Plt Count Seg Neuts % (Manual) Lymphocytes % (Manual) Seg Neutrophils # Man Lymphocytes # (Manual) Monocytes # (Manual) PT INR D-Dimer ABG pH ABG pO2 ABG HCO3 ABG O2 Saturation ABG Base Excess ABG Hemoglobin Oxyhemoglobin Sodium Potassium Chloride Carbon Dioxide BUN 32 H Creatinine Glucose 106 H POC Glucose 110 H Lactic Acid Calcium 7.5 L Phosphorus Magnesium AST ALT Alkaline Phosphatase Lactate Dehydrogenase Troponin T C-Reactive Protein NT-Pro-B Natriuret Pep Total Protein Albumin LDL Cholesterol Direct Vitamin B12 Vancomycin Trough Crossmatch 11/23/21 11/23/21 11/23/21 04:38 04:38 06:01 WBC RBC 3.23 L Hgb 8.8 L Hct 28.0 L MCV MCH 27 L MCHC RDW 21.3 H Plt Count Seg Neuts % (Manual) Lymphocytes % (Manual) Seg Neutrophils # Man Lymphocytes # (Manual) Monocytes # (Manual) PT INR D-Dimer ABG pH ABG pO2 ABG HCO3 ABG O2 Saturation ABG Base Excess ABG Hemoglobin Oxyhemoglobin Sodium 136 L Potassium Chloride Carbon Dioxide 20 L BUN 32 H Creatinine Glucose 109 H POC Glucose 115 H Lactic Acid Calcium 7.7 L Phosphorus Magnesium AST ALT Alkaline Phosphatase Lactate Dehydrogenase Troponin T C-Reactive Protein NT-Pro-B Natriuret Pep Total Protein Albumin LDL Cholesterol Direct Vitamin B12 Vancomycin Trough Crossmatch 11/23/21 11/24/21 11/24/21 11:40 00:03 04:13 WBC RBC 3.18 L Hgb 8.5 L Hct 27.5 L MCV MCH 27 L MCHC RDW 21.6 H Plt Count Seg Neuts % (Manual) Lymphocytes % (Manual) Seg Neutrophils # Man Lymphocytes # (Manual) Monocytes # (Manual) PT INR D-Dimer ABG pH ABG pO2 ABG HCO3 ABG O2 Saturation ABG Base Excess ABG Hemoglobin Oxyhemoglobin Sodium Potassium Chloride Carbon Dioxide BUN Creatinine Glucose POC Glucose 117 H 111 H Lactic Acid Calcium Phosphorus Magnesium AST ALT Alkaline Phosphatase Lactate Dehydrogenase Troponin T C-Reactive Protein NT-Pro-B Natriuret Pep Total Protein Albumin LDL Cholesterol Direct Vitamin B12 Vancomycin Trough Crossmatch 11/24/21 11/24/21 11/24/21 04:13 05:30 11:10 WBC RBC Hgb Hct MCV MCH MCHC RDW Plt Count Seg Neuts % (Manual) Lymphocytes % (Manual) Seg Neutrophils # Man Lymphocytes # (Manual) Monocytes # (Manual) PT INR D-Dimer ABG pH ABG pO2 ABG HCO3 ABG O2 Saturation ABG Base Excess ABG Hemoglobin Oxyhemoglobin Sodium Potassium Chloride Carbon Dioxide BUN 31 H Creatinine Glucose 101 H POC Glucose 115 H 107 H Lactic Acid Calcium 7.7 L Phosphorus Magnesium AST ALT Alkaline Phosphatase Lactate Dehydrogenase Troponin T C-Reactive Protein NT-Pro-B Natriuret Pep Total Protein Albumin LDL Cholesterol Direct Vitamin B12 Vancomycin Trough Crossmatch 11/24/21 11/24/21 11/25/21 16:34 17:57 05:12 WBC RBC 3.11 L Hgb 8.2 L Hct 26.6 L MCV MCH 26 L MCHC RDW 21.3 H Plt Count Seg Neuts % (Manual) Lymphocytes % (Manual) Seg Neutrophils # Man Lymphocytes # (Manual) Monocytes # (Manual) PT INR D-Dimer ABG pH ABG pO2 ABG HCO3 ABG O2 Saturation ABG Base Excess ABG Hemoglobin Oxyhemoglobin Sodium Potassium Chloride Carbon Dioxide BUN Creatinine Glucose POC Glucose 115 H 110 H Lactic Acid Calcium Phosphorus Magnesium AST ALT Alkaline Phosphatase Lactate Dehydrogenase Troponin T C-Reactive Protein NT-Pro-B Natriuret Pep Total Protein Albumin LDL Cholesterol Direct Vitamin B12 Vancomycin Trough Crossmatch 11/25/21 11/25/21 11/26/21 05:12 11:20 05:00 WBC RBC 3.30 L Hgb 8.8 L Hct 28.2 L MCV MCH 27 L MCHC RDW 20.7 H Plt Count Seg Neuts % (Manual) Lymphocytes % (Manual) Seg Neutrophils # Man Lymphocytes # (Manual) Monocytes # (Manual) PT INR D-Dimer ABG pH ABG pO2 ABG HCO3 ABG O2 Saturation ABG Base Excess ABG Hemoglobin Oxyhemoglobin Sodium Potassium Chloride Carbon Dioxide BUN 32 H Creatinine Glucose 118 H POC Glucose 118 H Lactic Acid Calcium 8.2 L Phosphorus Magnesium AST ALT Alkaline Phosphatase Lactate Dehydrogenase Troponin T C-Reactive Protein NT-Pro-B Natriuret Pep Total Protein Albumin LDL Cholesterol Direct Vitamin B12 Vancomycin Trough Crossmatch 11/26/21 11/26/21 11/26/21 05:00 05:00 05:44 WBC RBC Hgb Hct MCV MCH MCHC RDW Plt Count Seg Neuts % (Manual) Lymphocytes % (Manual) Seg Neutrophils # Man Lymphocytes # (Manual) Monocytes # (Manual) PT 16.9 H INR 1.24 H D-Dimer ABG pH ABG pO2 ABG HCO3 ABG O2 Saturation ABG Base Excess ABG Hemoglobin Oxyhemoglobin Sodium Potassium Chloride Carbon Dioxide BUN 31 H Creatinine Glucose 104 H POC Glucose 110 H Lactic Acid Calcium 7.9 L Phosphorus Magnesium AST ALT Alkaline Phosphatase Lactate Dehydrogenase Troponin T C-Reactive Protein NT-Pro-B Natriuret Pep Total Protein Albumin LDL Cholesterol Direct Vitamin B12 Vancomycin Trough Crossmatch 11/26/21 11/27/21 11/27/21 23:55 07:40 07:40 WBC RBC 3.18 L Hgb 8.5 L Hct 27.0 L MCV MCH 27 L MCHC RDW 21.2 H Plt Count Seg Neuts % (Manual) Lymphocytes % (Manual) Seg Neutrophils # Man Lymphocytes # (Manual) Monocytes # (Manual) PT INR D-Dimer ABG pH ABG pO2 ABG HCO3 ABG O2 Saturation ABG Base Excess ABG Hemoglobin Oxyhemoglobin Sodium Potassium Chloride Carbon Dioxide BUN 27 H Creatinine Glucose 112 H POC Glucose 63 L Lactic Acid Calcium 7.6 L Phosphorus Magnesium AST ALT Alkaline Phosphatase Lactate Dehydrogenase Troponin T C-Reactive Protein NT-Pro-B Natriuret Pep Total Protein Albumin LDL Cholesterol Direct Vitamin B12 Vancomycin Trough Crossmatch 11/27/21 11/27/21 11/27/21 12:04 13:40 13:40 WBC RBC 3.31 L Hgb 8.7 L Hct 28.0 L MCV MCH 26 L MCHC RDW 20.7 H Plt Count Seg Neuts % (Manual) Lymphocytes % (Manual) Seg Neutrophils # Man Lymphocytes # (Manual) Monocytes # (Manual) PT INR D-Dimer ABG pH ABG pO2 ABG HCO3 ABG O2 Saturation ABG Base Excess ABG Hemoglobin Oxyhemoglobin Sodium 136 L Potassium Chloride Carbon Dioxide BUN 25 H Creatinine Glucose 127 H POC Glucose 109 H Lactic Acid Calcium 7.6 L Phosphorus Magnesium 1.40 L AST ALT Alkaline Phosphatase Lactate Dehydrogenase Troponin T C-Reactive Protein NT-Pro-B Natriuret Pep Total Protein Albumin LDL Cholesterol Direct Vitamin B12 Vancomycin Trough Crossmatch 11/27/21 11/27/21 11/28/21 17:44 23:33 12:20 WBC RBC Hgb Hct MCV MCH MCHC RDW Plt Count Seg Neuts % (Manual) Lymphocytes % (Manual) Seg Neutrophils # Man Lymphocytes # (Manual) Monocytes # (Manual) PT INR D-Dimer ABG pH ABG pO2 ABG HCO3 ABG O2 Saturation ABG Base Excess ABG Hemoglobin Oxyhemoglobin Sodium Potassium Chloride Carbon Dioxide BUN Creatinine Glucose POC Glucose 107 H 108 H 114 H Lactic Acid Calcium Phosphorus Magnesium AST ALT Alkaline Phosphatase Lactate Dehydrogenase Troponin T C-Reactive Protein NT-Pro-B Natriuret Pep Total Protein Albumin LDL Cholesterol Direct Vitamin B12 Vancomycin Trough Crossmatch 11/29/21 11/29/21 11/29/21 00:09 03:20 03:20 WBC RBC 3.05 L Hgb 8.2 L Hct 25.8 L MCV MCH 27 L MCHC RDW 20.9 H Plt Count Seg Neuts % (Manual) Lymphocytes % (Manual) Seg Neutrophils # Man Lymphocytes # (Manual) Monocytes # (Manual) PT INR D-Dimer ABG pH ABG pO2 ABG HCO3 ABG O2 Saturation ABG Base Excess ABG Hemoglobin Oxyhemoglobin Sodium 133 L Potassium Chloride Carbon Dioxide BUN 24 H Creatinine Glucose 137 H POC Glucose 134 H Lactic Acid Calcium 7.4 L Phosphorus Magnesium AST ALT Alkaline Phosphatase Lactate Dehydrogenase Troponin T C-Reactive Protein NT-Pro-B Natriuret Pep Total Protein Albumin LDL Cholesterol Direct Vitamin B12 Vancomycin Trough Crossmatch 11/29/21 11/29/21 11/29/21 05:38 11:39 17:11 WBC RBC Hgb Hct MCV MCH MCHC RDW Plt Count Seg Neuts % (Manual) Lymphocytes % (Manual) Seg Neutrophils # Man Lymphocytes # (Manual) Monocytes # (Manual) PT INR D-Dimer ABG pH ABG pO2 ABG HCO3 ABG O2 Saturation ABG Base Excess ABG Hemoglobin Oxyhemoglobin Sodium Potassium Chloride Carbon Dioxide BUN Creatinine Glucose POC Glucose 117 H 143 H 124 H Lactic Acid Calcium Phosphorus Magnesium AST ALT Alkaline Phosphatase Lactate Dehydrogenase Troponin T C-Reactive Protein NT-Pro-B Natriuret Pep Total Protein Albumin LDL Cholesterol Direct Vitamin B12 Vancomycin Trough Crossmatch 11/29/21 11/30/21 11/30/21 20:15 05:40 05:40 WBC 12.6 H RBC 3.41 L Hgb 9.1 L Hct 28.9 L MCV MCH 27 L MCHC RDW 20.4 H Plt Count Seg Neuts % (Manual) Lymphocytes % (Manual) Seg Neutrophils # Man Lymphocytes # (Manual) Monocytes # (Manual) PT INR D-Dimer ABG pH ABG pO2 ABG HCO3 ABG O2 Saturation ABG Base Excess ABG Hemoglobin Oxyhemoglobin Sodium Potassium Chloride Carbon Dioxide BUN 24 H Creatinine Glucose 131 H POC Glucose Lactic Acid Calcium 7.6 L Phosphorus Magnesium AST ALT Alkaline Phosphatase Lactate Dehydrogenase Troponin T 0.045 H C-Reactive Protein NT-Pro-B Natriuret Pep Total Protein Albumin LDL Cholesterol Direct 25 L Vitamin B12 Vancomycin Trough Crossmatch 11/30/21 11/30/21 12/01/21 11:29 16:51 05:00 WBC RBC 2.97 L Hgb 8.0 L Hct 25.0 L MCV MCH 27 L MCHC RDW 20.8 H Plt Count Seg Neuts % (Manual) Lymphocytes % (Manual) Seg Neutrophils # Man Lymphocytes # (Manual) Monocytes # (Manual) PT INR D-Dimer ABG pH ABG pO2 ABG HCO3 ABG O2 Saturation ABG Base Excess ABG Hemoglobin Oxyhemoglobin Sodium Potassium Chloride Carbon Dioxide BUN Creatinine Glucose POC Glucose 123 H 114 H Lactic Acid Calcium Phosphorus Magnesium AST ALT Alkaline Phosphatase Lactate Dehydrogenase Troponin T C-Reactive Protein NT-Pro-B Natriuret Pep Total Protein Albumin LDL Cholesterol Direct Vitamin B12 Vancomycin Trough Crossmatch 12/01/21 12/01/21 12/01/21 05:00 05:25 11:54 WBC RBC Hgb Hct MCV MCH MCHC RDW Plt Count Seg Neuts % (Manual) Lymphocytes % (Manual) Seg Neutrophils # Man Lymphocytes # (Manual) Monocytes # (Manual) PT INR D-Dimer ABG pH ABG pO2 ABG HCO3 ABG O2 Saturation ABG Base Excess ABG Hemoglobin Oxyhemoglobin Sodium 136 L Potassium Chloride Carbon Dioxide BUN 24 H Creatinine Glucose 117 H POC Glucose 108 H 107 H Lactic Acid Calcium 7.5 L Phosphorus Magnesium 1.60 L AST ALT Alkaline Phosphatase Lactate Dehydrogenase Troponin T C-Reactive Protein NT-Pro-B Natriuret Pep Total Protein Albumin LDL Cholesterol Direct Vitamin B12 Vancomycin Trough Crossmatch 12/01/21 12/02/21 12/02/21 17:40 00:07 04:20 WBC RBC 2.92 L Hgb 7.7 L Hct 24.3 L MCV MCH 26 L MCHC RDW 20.5 H Plt Count Seg Neuts % (Manual) Lymphocytes % (Manual) Seg Neutrophils # Man Lymphocytes # (Manual) Monocytes # (Manual) PT INR D-Dimer ABG pH ABG pO2 ABG HCO3 ABG O2 Saturation ABG Base Excess ABG Hemoglobin Oxyhemoglobin Sodium Potassium Chloride Carbon Dioxide BUN Creatinine Glucose POC Glucose 123 H 110 H Lactic Acid Calcium Phosphorus Magnesium AST ALT Alkaline Phosphatase Lactate Dehydrogenase Troponin T C-Reactive Protein NT-Pro-B Natriuret Pep Total Protein Albumin LDL Cholesterol Direct Vitamin B12 Vancomycin Trough Crossmatch 02/15/22 02/15/22 02/15/22 04:20 11:17 18:20 WBC RBC Hgb Hct MCV MCH MCHC RDW Plt Count Seg Neuts % (Manual) Lymphocytes % (Manual) Seg Neutrophils # Man Lymphocytes # (Manual) Monocytes # (Manual) PT INR D-Dimer ABG pH ABG pO2 ABG HCO3 ABG O2 Saturation ABG Base Excess ABG Hemoglobin Oxyhemoglobin Sodium 135 L Potassium Chloride Carbon Dioxide BUN 26 H Creatinine Glucose 121 H POC Glucose 117 H 113 H Lactic Acid Calcium 7.4 L Phosphorus Magnesium AST ALT Alkaline Phosphatase Lactate Dehydrogenase Troponin T C-Reactive Protein NT-Pro-B Natriuret Pep Total Protein Albumin LDL Cholesterol Direct Vitamin B12 Vancomycin Trough Crossmatch 12/03/21 12/03/21 12/03/21 00:12 04:00 04:00 WBC RBC 2.99 L Hgb 7.8 L Hct 24.6 L MCV MCH 26 L MCHC RDW 20.2 H Plt Count Seg Neuts % (Manual) Lymphocytes % (Manual) Seg Neutrophils # Man Lymphocytes # (Manual) Monocytes # (Manual) PT INR D-Dimer ABG pH ABG pO2 ABG HCO3 ABG O2 Saturation ABG Base Excess ABG Hemoglobin Oxyhemoglobin Sodium 136 L Potassium Chloride Carbon Dioxide BUN 27 H Creatinine Glucose 133 H POC Glucose 121 H Lactic Acid Calcium 7.5 L Phosphorus Magnesium AST ALT Alkaline Phosphatase Lactate Dehydrogenase Troponin T C-Reactive Protein NT-Pro-B Natriuret Pep Total Protein Albumin LDL Cholesterol Direct Vitamin B12 Vancomycin Trough Crossmatch 12/03/21 12/03/21 12/03/21 06:30 11:13 16:00 WBC RBC Hgb Hct MCV MCH MCHC RDW Plt Count Seg Neuts % (Manual) Lymphocytes % (Manual) Seg Neutrophils # Man Lymphocytes # (Manual) Monocytes # (Manual) PT INR D-Dimer ABG pH ABG pO2 ABG HCO3 ABG O2 Saturation ABG Base Excess ABG Hemoglobin Oxyhemoglobin Sodium Potassium Chloride Carbon Dioxide BUN Creatinine Glucose POC Glucose 129 H 125 H 125 H Lactic Acid Calcium Phosphorus Magnesium AST ALT Alkaline Phosphatase Lactate Dehydrogenase Troponin T C-Reactive Protein NT-Pro-B Natriuret Pep Total Protein Albumin LDL Cholesterol Direct Vitamin B12 Vancomycin Trough Crossmatch 12/03/21 12/04/21 12/04/21 23:32 04:00 05:36 WBC RBC Hgb Hct MCV MCH MCHC RDW Plt Count Seg Neuts % (Manual) Lymphocytes % (Manual) Seg Neutrophils # Man Lymphocytes # (Manual) Monocytes # (Manual) PT INR D-Dimer ABG pH ABG pO2 ABG HCO3 ABG O2 Saturation ABG Base Excess ABG Hemoglobin Oxyhemoglobin Sodium Potassium 3.5 L Chloride Carbon Dioxide BUN 26 H Creatinine 0.5 L Glucose 151 H POC Glucose 133 H 142 H Lactic Acid Calcium 8.3 L Phosphorus Magnesium AST ALT Alkaline Phosphatase Lactate Dehydrogenase Troponin T C-Reactive Protein NT-Pro-B Natriuret Pep Total Protein Albumin LDL Cholesterol Direct Vitamin B12 Vancomycin Trough Crossmatch 12/04/21 12/04/21 12/05/21 11:24 15:58 04:36 WBC RBC Hgb Hct MCV MCH MCHC RDW Plt Count Seg Neuts % (Manual) Lymphocytes % (Manual) Seg Neutrophils # Man Lymphocytes # (Manual) Monocytes # (Manual) PT INR D-Dimer ABG pH ABG pO2 ABG HCO3 ABG O2 Saturation ABG Base Excess ABG Hemoglobin Oxyhemoglobin Sodium Potassium Chloride Carbon Dioxide BUN 21 H Creatinine 0.5 L Glucose 119 H POC Glucose 130 H 111 H Lactic Acid Calcium 8.3 L Phosphorus Magnesium AST ALT Alkaline Phosphatase Lactate Dehydrogenase Troponin T C-Reactive Protein NT-Pro-B Natriuret Pep Total Protein Albumin LDL Cholesterol Direct Vitamin B12 Vancomycin Trough Crossmatch 12/05/21 12/05/21 12/05/21 05:15 10:40 11:12 WBC RBC 2.98 L Hgb 8.1 L Hct 24.6 L MCV MCH 27 L MCHC RDW 20.8 H Plt Count Seg Neuts % (Manual) Lymphocytes % (Manual) Seg Neutrophils # Man Lymphocytes # (Manual) Monocytes # (Manual) PT INR D-Dimer ABG pH ABG pO2 ABG HCO3 ABG O2 Saturation ABG Base Excess ABG Hemoglobin Oxyhemoglobin Sodium Potassium Chloride Carbon Dioxide BUN Creatinine Glucose POC Glucose 107 H 110 H Lactic Acid Calcium Phosphorus Magnesium AST ALT Alkaline Phosphatase Lactate Dehydrogenase Troponin T C-Reactive Protein NT-Pro-B Natriuret Pep Total Protein Albumin LDL Cholesterol Direct Vitamin B12 Vancomycin Trough Crossmatch 12/05/21 12/06/21 12/06/21 23:39 04:25 04:25 WBC RBC 2.95 L Hgb 7.9 L Hct 24.7 L MCV MCH 27 L MCHC RDW 20.9 H Plt Count Seg Neuts % (Manual) Lymphocytes % (Manual) Seg Neutrophils # Man Lymphocytes # (Manual) Monocytes # (Manual) PT INR D-Dimer ABG pH ABG pO2 ABG HCO3 ABG O2 Saturation ABG Base Excess ABG Hemoglobin Oxyhemoglobin Sodium Potassium Chloride Carbon Dioxide BUN 22 H Creatinine 0.5 L Glucose 136 H POC Glucose 118 H Lactic Acid Calcium 8.2 L Phosphorus Magnesium AST ALT Alkaline Phosphatase Lactate Dehydrogenase Troponin T C-Reactive Protein NT-Pro-B Natriuret Pep Total Protein Albumin LDL Cholesterol Direct Vitamin B12 Vancomycin Trough Crossmatch 12/06/21 12/06/21 12/07/21 05:28 11:27 04:00 WBC RBC Hgb 7.2 L Hct 21.8 L MCV MCH MCHC RDW Plt Count Seg Neuts % (Manual) Lymphocytes % (Manual) Seg Neutrophils # Man Lymphocytes # (Manual) Monocytes # (Manual) PT INR D-Dimer ABG pH ABG pO2 ABG HCO3 ABG O2 Saturation ABG Base Excess ABG Hemoglobin Oxyhemoglobin Sodium Potassium Chloride Carbon Dioxide BUN Creatinine Glucose POC Glucose 142 H 126 H Lactic Acid Calcium Phosphorus Magnesium AST ALT Alkaline Phosphatase Lactate Dehydrogenase Troponin T C-Reactive Protein NT-Pro-B Natriuret Pep Total Protein Albumin LDL Cholesterol Direct Vitamin B12 Vancomycin Trough Crossmatch 12/07/21 12/07/21 12/07/21 04:00 05:30 11:12 WBC RBC Hgb Hct MCV MCH MCHC RDW Plt Count Seg Neuts % (Manual) Lymphocytes % (Manual) Seg Neutrophils # Man Lymphocytes # (Manual) Monocytes # (Manual) PT INR D-Dimer ABG pH ABG pO2 ABG HCO3 ABG O2 Saturation ABG Base Excess ABG Hemoglobin Oxyhemoglobin Sodium Potassium Chloride Carbon Dioxide BUN 22 H Creatinine Glucose 119 H POC Glucose 121 H 124 H Lactic Acid Calcium 8.0 L Phosphorus Magnesium AST ALT Alkaline Phosphatase Lactate Dehydrogenase Troponin T C-Reactive Protein NT-Pro-B Natriuret Pep Total Protein Albumin LDL Cholesterol Direct Vitamin B12 Vancomycin Trough Crossmatch 12/08/21 12/08/21 12/08/21 04:00 04:00 05:39 WBC RBC 2.81 L Hgb 7.7 L Hct 23.5 L MCV MCH MCHC RDW 21.2 H Plt Count Seg Neuts % (Manual) Lymphocytes % (Manual) Seg Neutrophils # Man Lymphocytes # (Manual) Monocytes # (Manual) PT INR D-Dimer ABG pH ABG pO2 ABG HCO3 ABG O2 Saturation ABG Base Excess ABG Hemoglobin Oxyhemoglobin Sodium 135 L Potassium Chloride Carbon Dioxide BUN 23 H Creatinine Glucose 109 H POC Glucose 112 H Lactic Acid Calcium Phosphorus Magnesium AST ALT Alkaline Phosphatase Lactate Dehydrogenase Troponin T C-Reactive Protein NT-Pro-B Natriuret Pep Total Protein Albumin LDL Cholesterol Direct Vitamin B12 Vancomycin Trough Crossmatch 12/08/21 12/09/21 12/09/21 11:03 04:20 04:20 WBC RBC 2.67 L Hgb 7.6 L Hct 22.1 L MCV MCH MCHC RDW 20.8 H Plt Count Seg Neuts % (Manual) Lymphocytes % (Manual) Seg Neutrophils # Man Lymphocytes # (Manual) Monocytes # (Manual) PT INR D-Dimer ABG pH ABG pO2 ABG HCO3 ABG O2 Saturation ABG Base Excess ABG Hemoglobin Oxyhemoglobin Sodium 135 L Potassium Chloride 97.8 L Carbon Dioxide BUN 26 H Creatinine Glucose 119 H POC Glucose 108 H Lactic Acid Calcium 7.7 L Phosphorus Magnesium AST ALT Alkaline Phosphatase Lactate Dehydrogenase Troponin T C-Reactive Protein NT-Pro-B Natriuret Pep Total Protein Albumin LDL Cholesterol Direct Vitamin B12 Vancomycin Trough Crossmatch 12/09/21 12/10/21 12/10/21 11:26 04:33 11:12 WBC RBC Hgb Hct MCV MCH MCHC RDW Plt Count Seg Neuts % (Manual) Lymphocytes % (Manual) Seg Neutrophils # Man Lymphocytes # (Manual) Monocytes # (Manual) PT INR D-Dimer ABG pH ABG pO2 ABG HCO3 ABG O2 Saturation ABG Base Excess ABG Hemoglobin Oxyhemoglobin Sodium 136 L Potassium Chloride Carbon Dioxide BUN 27 H Creatinine Glucose 117 H POC Glucose 110 H 117 H Lactic Acid Calcium 8.2 L Phosphorus Magnesium AST ALT Alkaline Phosphatase Lactate Dehydrogenase Troponin T C-Reactive Protein NT-Pro-B Natriuret Pep Total Protein Albumin LDL Cholesterol Direct Vitamin B12 Vancomycin Trough Crossmatch 12/10/21 12/10/21 12/11/21 16:02 23:31 04:35 WBC RBC 2.57 L Hgb 7.0 L Hct 21.4 L MCV MCH 27 L MCHC RDW 21.1 H Plt Count Seg Neuts % (Manual) Lymphocytes % (Manual) Seg Neutrophils # Man Lymphocytes # (Manual) Monocytes # (Manual) PT INR D-Dimer ABG pH ABG pO2 ABG HCO3 ABG O2 Saturation ABG Base Excess ABG Hemoglobin Oxyhemoglobin Sodium Potassium Chloride Carbon Dioxide BUN Creatinine Glucose POC Glucose 137 H 111 H Lactic Acid Calcium Phosphorus Magnesium AST ALT Alkaline Phosphatase Lactate Dehydrogenase Troponin T C-Reactive Protein NT-Pro-B Natriuret Pep Total Protein Albumin LDL Cholesterol Direct Vitamin B12 Vancomycin Trough Crossmatch 12/11/21 12/11/21 12/11/21 04:35 12:46 16:07 WBC RBC Hgb Hct MCV MCH MCHC RDW Plt Count Seg Neuts % (Manual) Lymphocytes % (Manual) Seg Neutrophils # Man Lymphocytes # (Manual) Monocytes # (Manual) PT INR D-Dimer ABG pH ABG pO2 ABG HCO3 ABG O2 Saturation ABG Base Excess ABG Hemoglobin Oxyhemoglobin Sodium 136 L Potassium Chloride Carbon Dioxide BUN 27 H Creatinine Glucose 112 H POC Glucose 115 H 111 H Lactic Acid Calcium 7.6 L Phosphorus Magnesium AST ALT Alkaline Phosphatase Lactate Dehydrogenase Troponin T C-Reactive Protein NT-Pro-B Natriuret Pep Total Protein Albumin LDL Cholesterol Direct Vitamin B12 Vancomycin Trough Crossmatch 12/11/21 12/12/21 12/12/21 23:42 04:30 04:30 WBC RBC 2.60 L Hgb 7.1 L Hct 21.5 L MCV MCH 27 L MCHC RDW 20.3 H Plt Count Seg Neuts % (Manual) Lymphocytes % (Manual) Seg Neutrophils # Man Lymphocytes # (Manual) Monocytes # (Manual) PT INR D-Dimer ABG pH ABG pO2 ABG HCO3 ABG O2 Saturation ABG Base Excess ABG Hemoglobin Oxyhemoglobin Sodium 135 L Potassium Chloride 97.9 L Carbon Dioxide BUN 26 H Creatinine 0.5 L Glucose 138 H POC Glucose 115 H Lactic Acid Calcium 8.2 L Phosphorus Magnesium AST ALT Alkaline Phosphatase Lactate Dehydrogenase Troponin T C-Reactive Protein NT-Pro-B Natriuret Pep Total Protein Albumin LDL Cholesterol Direct Vitamin B12 Vancomycin Trough Crossmatch 12/12/21 12/12/21 12/12/21 04:30 05:10 11:51 WBC RBC Hgb Hct MCV MCH MCHC RDW Plt Count Seg Neuts % (Manual) Lymphocytes % (Manual) Seg Neutrophils # Man Lymphocytes # (Manual) Monocytes # (Manual) PT INR D-Dimer ABG pH ABG pO2 ABG HCO3 ABG O2 Saturation ABG Base Excess ABG Hemoglobin Oxyhemoglobin Sodium Potassium Chloride Carbon Dioxide BUN Creatinine Glucose POC Glucose 119 H 119 H Lactic Acid Calcium Phosphorus Magnesium AST ALT Alkaline Phosphatase Lactate Dehydrogenase Troponin T C-Reactive Protein NT-Pro-B Natriuret Pep Total Protein Albumin LDL Cholesterol Direct Vitamin B12 Vancomycin Trough Crossmatch See Detail 12/13/21 12/13/21 12/13/21 00:52 04:00 04:00 WBC RBC 2.73 L Hgb 7.4 L Hct 22.8 L MCV MCH 27 L MCHC RDW 20.5 H Plt Count Seg Neuts % (Manual) Lymphocytes % (Manual) Seg Neutrophils # Man Lymphocytes # (Manual) Monocytes # (Manual) PT INR D-Dimer ABG pH ABG pO2 ABG HCO3 ABG O2 Saturation ABG Base Excess ABG Hemoglobin Oxyhemoglobin Sodium 134 L Potassium Chloride 96.7 L Carbon Dioxide BUN 23 H Creatinine 0.5 L Glucose 131 H POC Glucose 131 H Lactic Acid Calcium 8.1 L Phosphorus Magnesium AST ALT Alkaline Phosphatase Lactate Dehydrogenase Troponin T C-Reactive Protein NT-Pro-B Natriuret Pep Total Protein Albumin LDL Cholesterol Direct Vitamin B12 Vancomycin Trough Crossmatch 12/13/21 12/13/21 12/13/21 05:23 12:11 17:18 WBC RBC Hgb Hct MCV MCH MCHC RDW Plt Count Seg Neuts % (Manual) Lymphocytes % (Manual) Seg Neutrophils # Man Lymphocytes # (Manual) Monocytes # (Manual) PT INR D-Dimer ABG pH ABG pO2 ABG HCO3 ABG O2 Saturation ABG Base Excess ABG Hemoglobin Oxyhemoglobin Sodium Potassium Chloride Carbon Dioxide BUN Creatinine Glucose POC Glucose 121 H 143 H 148 H Lactic Acid Calcium Phosphorus Magnesium AST ALT Alkaline Phosphatase Lactate Dehydrogenase Troponin T C-Reactive Protein NT-Pro-B Natriuret Pep Total Protein Albumin LDL Cholesterol Direct Vitamin B12 Vancomycin Trough Crossmatch 12/14/21 12/14/21 12/14/21 00:54 04:20 04:20 WBC RBC 2.39 L Hgb 6.5 L Hct 20.3 L MCV MCH 27 L MCHC RDW 20.3 H Plt Count Seg Neuts % (Manual) Lymphocytes % (Manual) Seg Neutrophils # Man Lymphocytes # (Manual) Monocytes # (Manual) PT INR D-Dimer ABG pH ABG pO2 ABG HCO3 ABG O2 Saturation ABG Base Excess ABG Hemoglobin Oxyhemoglobin Sodium 130 L Potassium Chloride 93.5 L Carbon Dioxide BUN 25 H Creatinine Glucose 123 H POC Glucose 123 H Lactic Acid Calcium 8.0 L Phosphorus Magnesium AST ALT Alkaline Phosphatase Lactate Dehydrogenase Troponin T C-Reactive Protein NT-Pro-B Natriuret Pep Total Protein Albumin LDL Cholesterol Direct Vitamin B12 Vancomycin Trough Crossmatch 12/14/21 12/14/21 12/14/21 05:06 08:17 10:30 WBC RBC Hgb Hct MCV MCH MCHC RDW Plt Count Seg Neuts % (Manual) Lymphocytes % (Manual) Seg Neutrophils # Man Lymphocytes # (Manual) Monocytes # (Manual) PT INR D-Dimer ABG pH ABG pO2 ABG HCO3 ABG O2 Saturation ABG Base Excess ABG Hemoglobin Oxyhemoglobin Sodium Potassium Chloride Carbon Dioxide BUN Creatinine Glucose POC Glucose 131 H 119 H Lactic Acid Calcium Phosphorus Magnesium AST ALT Alkaline Phosphatase Lactate Dehydrogenase Troponin T C-Reactive Protein NT-Pro-B Natriuret Pep Total Protein Albumin LDL Cholesterol Direct Vitamin B12 Vancomycin Trough Crossmatch See Detail 12/14/21 12/14/21 12/14/21 12:15 16:37 23:27 WBC RBC Hgb Hct MCV MCH MCHC RDW Plt Count Seg Neuts % (Manual) Lymphocytes % (Manual) Seg Neutrophils # Man Lymphocytes # (Manual) Monocytes # (Manual) PT INR D-Dimer ABG pH ABG pO2 ABG HCO3 ABG O2 Saturation ABG Base Excess ABG Hemoglobin Oxyhemoglobin Sodium Potassium Chloride Carbon Dioxide BUN Creatinine Glucose POC Glucose 147 H 141 H 130 H Lactic Acid Calcium Phosphorus Magnesium AST ALT Alkaline Phosphatase Lactate Dehydrogenase Troponin T C-Reactive Protein NT-Pro-B Natriuret Pep Total Protein Albumin LDL Cholesterol Direct Vitamin B12 Vancomycin Trough Crossmatch 12/15/21 12/15/21 12/15/21 05:00 07:00 07:00 WBC 12.3 H RBC 3.27 L Hgb 8.8 L Hct 27.5 L D MCV MCH 27 L MCHC RDW 19.0 H Plt Count Seg Neuts % (Manual) Lymphocytes % (Manual) Seg Neutrophils # Man Lymphocytes # (Manual) Monocytes # (Manual) PT INR D-Dimer ABG pH ABG pO2 ABG HCO3 ABG O2 Saturation ABG Base Excess ABG Hemoglobin Oxyhemoglobin Sodium 134 L Potassium Chloride 95.7 L Carbon Dioxide BUN 28 H Creatinine Glucose 129 H POC Glucose 129 H Lactic Acid Calcium 8.2 L Phosphorus Magnesium AST ALT Alkaline Phosphatase Lactate Dehydrogenase Troponin T C-Reactive Protein NT-Pro-B Natriuret Pep Total Protein Albumin LDL Cholesterol Direct Vitamin B12 Vancomycin Trough Crossmatch 12/15/21 12/15/21 12/15/21 11:18 16:00 23:39 WBC RBC Hgb Hct MCV MCH MCHC RDW Plt Count Seg Neuts % (Manual) Lymphocytes % (Manual) Seg Neutrophils # Man Lymphocytes # (Manual) Monocytes # (Manual) PT INR D-Dimer ABG pH ABG pO2 ABG HCO3 ABG O2 Saturation ABG Base Excess ABG Hemoglobin Oxyhemoglobin Sodium Potassium Chloride Carbon Dioxide BUN Creatinine Glucose POC Glucose 139 H 137 H 146 H Lactic Acid Calcium Phosphorus Magnesium AST ALT Alkaline Phosphatase Lactate Dehydrogenase Troponin T C-Reactive Protein NT-Pro-B Natriuret Pep Total Protein Albumin LDL Cholesterol Direct Vitamin B12 Vancomycin Trough Crossmatch 12/16/21 12/16/21 12/16/21 05:24 10:21 10:21 WBC 15.3 H RBC 3.24 L Hgb 8.9 L Hct 27.7 L MCV MCH MCHC RDW 19.0 H Plt Count Seg Neuts % (Manual) Lymphocytes % (Manual) Seg Neutrophils # Man Lymphocytes # (Manual) Monocytes # (Manual) PT INR D-Dimer ABG pH ABG pO2 ABG HCO3 ABG O2 Saturation ABG Base Excess ABG Hemoglobin Oxyhemoglobin Sodium 131 L Potassium 3.5 L Chloride 92.7 L Carbon Dioxide BUN 36 H Creatinine Glucose 160 H POC Glucose 121 H Lactic Acid Calcium Phosphorus Magnesium 1.60 L AST ALT Alkaline Phosphatase Lactate Dehydrogenase Troponin T C-Reactive Protein NT-Pro-B Natriuret Pep Total Protein Albumin LDL Cholesterol Direct Vitamin B12 Vancomycin Trough Crossmatch 12/16/21 12/16/21 12/16/21 11:21 18:28 20:52 WBC RBC Hgb Hct MCV MCH MCHC RDW Plt Count Seg Neuts % (Manual) Lymphocytes % (Manual) Seg Neutrophils # Man Lymphocytes # (Manual) Monocytes # (Manual) PT INR D-Dimer ABG pH 7.479 H ABG pO2 79.3 L ABG HCO3 27.3 H ABG O2 Saturation ABG Base Excess 3.6 H ABG Hemoglobin 9.1 L Oxyhemoglobin 94.9 L Sodium Potassium Chloride Carbon Dioxide BUN Creatinine Glucose POC Glucose 153 H 132 H Lactic Acid Calcium Phosphorus Magnesium AST ALT Alkaline Phosphatase Lactate Dehydrogenase Troponin T C-Reactive Protein NT-Pro-B Natriuret Pep Total Protein Albumin LDL Cholesterol Direct Vitamin B12 Vancomycin Trough Crossmatch 12/16/21 12/17/21 12/17/21 23:30 04:25 04:25 WBC 12.3 H RBC 2.16 L Hgb 6.0 L Hct 18.1 L* D MCV MCH MCHC RDW 19.4 H Plt Count Seg Neuts % (Manual) Lymphocytes % (Manual) Seg Neutrophils # Man Lymphocytes # (Manual) Monocytes # (Manual) PT INR D-Dimer ABG pH ABG pO2 ABG HCO3 ABG O2 Saturation ABG Base Excess ABG Hemoglobin Oxyhemoglobin Sodium 132 L Potassium 3.2 L Chloride 112.0 H Carbon Dioxide BUN 32 H Creatinine Glucose 122 H POC Glucose 137 H Lactic Acid Calcium 6.8 L D Phosphorus Magnesium AST ALT Alkaline Phosphatase Lactate Dehydrogenase Troponin T C-Reactive Protein NT-Pro-B Natriuret Pep Total Protein Albumin LDL Cholesterol Direct Vitamin B12 Vancomycin Trough Crossmatch 12/17/21 12/17/21 12/17/21 05:30 11:49 14:45 WBC RBC Hgb 9.7 L D Hct MCV MCH MCHC RDW Plt Count Seg Neuts % (Manual) Lymphocytes % (Manual) Seg Neutrophils # Man Lymphocytes # (Manual) Monocytes # (Manual) PT INR D-Dimer ABG pH ABG pO2 ABG HCO3 ABG O2 Saturation ABG Base Excess ABG Hemoglobin Oxyhemoglobin Sodium Potassium Chloride Carbon Dioxide BUN Creatinine Glucose POC Glucose 137 H 143 H Lactic Acid Calcium Phosphorus Magnesium AST ALT Alkaline Phosphatase Lactate Dehydrogenase Troponin T C-Reactive Protein NT-Pro-B Natriuret Pep Total Protein Albumin LDL Cholesterol Direct Vitamin B12 Vancomycin Trough Crossmatch 12/17/21 12/18/21 12/18/21 17:01 05:04 05:04 WBC 13.8 H RBC 3.44 L Hgb 9.9 L Hct 28.8 L MCV MCH MCHC RDW 18.1 H Plt Count Seg Neuts % (Manual) Lymphocytes % (Manual) Seg Neutrophils # Man Lymphocytes # (Manual) Monocytes # (Manual) PT INR D-Dimer ABG pH ABG pO2 ABG HCO3 ABG O2 Saturation ABG Base Excess ABG Hemoglobin Oxyhemoglobin Sodium 132 L Potassium Chloride 97.4 L Carbon Dioxide BUN 38 H Creatinine Glucose 134 H POC Glucose 132 H Lactic Acid Calcium Phosphorus Magnesium AST ALT Alkaline Phosphatase Lactate Dehydrogenase Troponin T C-Reactive Protein NT-Pro-B Natriuret Pep Total Protein Albumin LDL Cholesterol Direct Vitamin B12 Vancomycin Trough Crossmatch 12/18/21 12/18/21 12/18/21 05:28 10:57 16:27 WBC RBC Hgb Hct MCV MCH MCHC RDW Plt Count Seg Neuts % (Manual) Lymphocytes % (Manual) Seg Neutrophils # Man Lymphocytes # (Manual) Monocytes # (Manual) PT INR D-Dimer ABG pH ABG pO2 ABG HCO3 ABG O2 Saturation ABG Base Excess ABG Hemoglobin Oxyhemoglobin Sodium Potassium Chloride Carbon Dioxide BUN Creatinine Glucose POC Glucose 118 H 132 H 130 H Lactic Acid Calcium Phosphorus Magnesium AST ALT Alkaline Phosphatase Lactate Dehydrogenase Troponin T C-Reactive Protein NT-Pro-B Natriuret Pep Total Protein Albumin LDL Cholesterol Direct Vitamin B12 Vancomycin Trough Crossmatch 12/19/21 12/19/21 12/19/21 00:02 04:41 04:41 WBC 16.0 H RBC 3.45 L Hgb 9.7 L Hct 29.1 L MCV MCH MCHC RDW 17.8 H Plt Count Seg Neuts % (Manual) Lymphocytes % (Manual) Seg Neutrophils # Man Lymphocytes # (Manual) Monocytes # (Manual) PT INR D-Dimer ABG pH ABG pO2 ABG HCO3 ABG O2 Saturation ABG Base Excess ABG Hemoglobin Oxyhemoglobin Sodium 133 L Potassium Chloride 97.9 L Carbon Dioxide BUN 36 H Creatinine 0.5 L Glucose 126 H POC Glucose 127 H Lactic Acid Calcium 8.3 L Phosphorus Magnesium AST ALT Alkaline Phosphatase Lactate Dehydrogenase Troponin T C-Reactive Protein NT-Pro-B Natriuret Pep Total Protein Albumin LDL Cholesterol Direct Vitamin B12 Vancomycin Trough Crossmatch 12/19/21 12/19/21 12/19/21 05:26 12:20 16:43 WBC RBC Hgb Hct MCV MCH MCHC RDW Plt Count Seg Neuts % (Manual) Lymphocytes % (Manual) Seg Neutrophils # Man Lymphocytes # (Manual) Monocytes # (Manual) PT INR D-Dimer ABG pH ABG pO2 ABG HCO3 ABG O2 Saturation ABG Base Excess ABG Hemoglobin Oxyhemoglobin Sodium Potassium Chloride Carbon Dioxide BUN Creatinine Glucose POC Glucose 119 H 145 H 126 H Lactic Acid Calcium Phosphorus Magnesium AST ALT Alkaline Phosphatase Lactate Dehydrogenase Troponin T C-Reactive Protein NT-Pro-B Natriuret Pep Total Protein Albumin LDL Cholesterol Direct Vitamin B12 Vancomycin Trough Crossmatch 12/19/21 12/20/21 12/20/21 23:30 04:54 04:54 WBC 12.3 H RBC 3.54 L Hgb 10.0 L Hct 29.5 L MCV MCH MCHC RDW 17.8 H Plt Count Seg Neuts % (Manual) 88.0 H Lymphocytes % (Manual) 6.0 L Seg Neutrophils # Man 10.8 H Lymphocytes # (Manual) 0.7 L Monocytes # (Manual) PT INR D-Dimer ABG pH ABG pO2 ABG HCO3 ABG O2 Saturation ABG Base Excess ABG Hemoglobin Oxyhemoglobin Sodium 131 L Potassium Chloride 96.2 L Carbon Dioxide BUN 36 H Creatinine 0.5 L Glucose 130 H POC Glucose 117 H Lactic Acid Calcium Phosphorus Magnesium AST ALT Alkaline Phosphatase Lactate Dehydrogenase Troponin T C-Reactive Protein NT-Pro-B Natriuret Pep Total Protein Albumin LDL Cholesterol Direct Vitamin B12 Vancomycin Trough Crossmatch 12/20/21 12/20/21 12/20/21 05:20 11:51 17:30 WBC RBC Hgb Hct MCV MCH MCHC RDW Plt Count Seg Neuts % (Manual) Lymphocytes % (Manual) Seg Neutrophils # Man Lymphocytes # (Manual) Monocytes # (Manual) PT INR D-Dimer ABG pH ABG pO2 ABG HCO3 ABG O2 Saturation ABG Base Excess ABG Hemoglobin Oxyhemoglobin Sodium Potassium Chloride Carbon Dioxide BUN Creatinine Glucose POC Glucose 126 H 119 H 127 H Lactic Acid Calcium Phosphorus Magnesium AST ALT Alkaline Phosphatase Lactate Dehydrogenase Troponin T C-Reactive Protein NT-Pro-B Natriuret Pep Total Protein Albumin LDL Cholesterol Direct Vitamin B12 Vancomycin Trough Crossmatch 12/21/21 12/21/21 12/21/21 00:45 04:21 04:21 WBC RBC 3.47 L Hgb 9.4 L Hct 29.2 L MCV MCH 27 L MCHC RDW 18.1 H Plt Count Seg Neuts % (Manual) Lymphocytes % (Manual) Seg Neutrophils # Man Lymphocytes # (Manual) Monocytes # (Manual) PT INR D-Dimer ABG pH ABG pO2 ABG HCO3 ABG O2 Saturation ABG Base Excess ABG Hemoglobin Oxyhemoglobin Sodium 134 L Potassium Chloride Carbon Dioxide BUN 35 H Creatinine 0.5 L Glucose 122 H POC Glucose 125 H Lactic Acid Calcium 8.2 L Phosphorus Magnesium AST ALT Alkaline Phosphatase Lactate Dehydrogenase Troponin T C-Reactive Protein NT-Pro-B Natriuret Pep Total Protein Albumin LDL Cholesterol Direct Vitamin B12 Vancomycin Trough Crossmatch 12/21/21 12/21/21 12/21/21 05:38 11:29 16:16 WBC RBC Hgb Hct MCV MCH MCHC RDW Plt Count Seg Neuts % (Manual) Lymphocytes % (Manual) Seg Neutrophils # Man Lymphocytes # (Manual) Monocytes # (Manual) PT INR D-Dimer ABG pH ABG pO2 ABG HCO3 ABG O2 Saturation ABG Base Excess ABG Hemoglobin Oxyhemoglobin Sodium Potassium Chloride Carbon Dioxide BUN Creatinine Glucose POC Glucose 127 H 121 H 113 H Lactic Acid Calcium Phosphorus Magnesium AST ALT Alkaline Phosphatase Lactate Dehydrogenase Troponin T C-Reactive Protein NT-Pro-B Natriuret Pep Total Protein Albumin LDL Cholesterol Direct Vitamin B12 Vancomycin Trough Crossmatch 12/22/21 12/22/21 12/23/21 04:58 04:58 06:40 WBC 11.5 H RBC 3.43 L Hgb 9.8 L Hct 28.7 L MCV MCH MCHC RDW 18.5 H 17.9 H Plt Count Seg Neuts % (Manual) Lymphocytes % (Manual) Seg Neutrophils # Man Lymphocytes # (Manual) Monocytes # (Manual) PT INR D-Dimer ABG pH ABG pO2 ABG HCO3 ABG O2 Saturation ABG Base Excess ABG Hemoglobin Oxyhemoglobin Sodium 130 L Potassium Chloride 97.8 L Carbon Dioxide BUN 31 H Creatinine 0.5 L Glucose 122 H POC Glucose Lactic Acid Calcium 7.9 L Phosphorus Magnesium AST ALT Alkaline Phosphatase Lactate Dehydrogenase Troponin T C-Reactive Protein NT-Pro-B Natriuret Pep Total Protein Albumin LDL Cholesterol Direct Vitamin B12 Vancomycin Trough Crossmatch 12/23/21 12/23/21 12/24/21 06:40 23:25 04:24 WBC 11.7 H RBC Hgb 9.8 L Hct MCV MCH 26 L MCHC RDW 18.1 H Plt Count Seg Neuts % (Manual) Lymphocytes % (Manual) Seg Neutrophils # Man Lymphocytes # (Manual) Monocytes # (Manual) PT INR D-Dimer ABG pH ABG pO2 ABG HCO3 ABG O2 Saturation ABG Base Excess ABG Hemoglobin Oxyhemoglobin Sodium 136 L Potassium Chloride Carbon Dioxide BUN 27 H Creatinine 0.4 L Glucose 107 H POC Glucose 110 H Lactic Acid Calcium 8.1 L Phosphorus Magnesium AST ALT Alkaline Phosphatase Lactate Dehydrogenase Troponin T C-Reactive Protein NT-Pro-B Natriuret Pep Total Protein Albumin LDL Cholesterol Direct Vitamin B12 Vancomycin Trough Crossmatch 12/24/21 12/24/21 12/24/21 04:24 11:08 15:45 WBC RBC Hgb Hct MCV MCH MCHC RDW Plt Count Seg Neuts % (Manual) Lymphocytes % (Manual) Seg Neutrophils # Man Lymphocytes # (Manual) Monocytes # (Manual) PT INR D-Dimer ABG pH ABG pO2 ABG HCO3 ABG O2 Saturation ABG Base Excess ABG Hemoglobin Oxyhemoglobin Sodium 132 L Potassium Chloride Carbon Dioxide BUN 27 H Creatinine 0.3 L Glucose 108 H POC Glucose 116 H 107 H Lactic Acid Calcium Phosphorus Magnesium AST ALT Alkaline Phosphatase Lactate Dehydrogenase Troponin T C-Reactive Protein NT-Pro-B Natriuret Pep Total Protein Albumin LDL Cholesterol Direct Vitamin B12 Vancomycin Trough Crossmatch 12/24/21 12/25/21 12/25/21 23:43 05:29 11:48 WBC RBC Hgb Hct MCV MCH MCHC RDW Plt Count Seg Neuts % (Manual) Lymphocytes % (Manual) Seg Neutrophils # Man Lymphocytes # (Manual) Monocytes # (Manual) PT INR D-Dimer ABG pH ABG pO2 ABG HCO3 ABG O2 Saturation ABG Base Excess ABG Hemoglobin Oxyhemoglobin Sodium Potassium Chloride Carbon Dioxide BUN Creatinine Glucose POC Glucose 123 H 107 H 119 H Lactic Acid Calcium Phosphorus Magnesium AST ALT Alkaline Phosphatase Lactate Dehydrogenase Troponin T C-Reactive Protein NT-Pro-B Natriuret Pep Total Protein Albumin LDL Cholesterol Direct Vitamin B12 Vancomycin Trough Crossmatch 12/26/21 12/26/21 12/26/21 00:06 05:56 07:51 WBC 11.4 H RBC 3.40 L Hgb 9.3 L Hct 28.3 L MCV MCH 27 L MCHC RDW 18.2 H Plt Count Seg Neuts % (Manual) Lymphocytes % (Manual) Seg Neutrophils # Man Lymphocytes # (Manual) Monocytes # (Manual) PT INR D-Dimer ABG pH ABG pO2 ABG HCO3 ABG O2 Saturation ABG Base Excess ABG Hemoglobin Oxyhemoglobin Sodium Potassium Chloride Carbon Dioxide BUN Creatinine Glucose POC Glucose 133 H 107 H Lactic Acid Calcium Phosphorus Magnesium AST ALT Alkaline Phosphatase Lactate Dehydrogenase Troponin T C-Reactive Protein NT-Pro-B Natriuret Pep Total Protein Albumin LDL Cholesterol Direct Vitamin B12 Vancomycin Trough Crossmatch 12/26/21 12/26/21 12/26/21 07:51 11:43 17:06 WBC RBC Hgb Hct MCV MCH MCHC RDW Plt Count Seg Neuts % (Manual) Lymphocytes % (Manual) Seg Neutrophils # Man Lymphocytes # (Manual) Monocytes # (Manual) PT INR D-Dimer ABG pH ABG pO2 ABG HCO3 ABG O2 Saturation ABG Base Excess ABG Hemoglobin Oxyhemoglobin Sodium 136 L Potassium Chloride Carbon Dioxide BUN 25 H Creatinine 0.3 L Glucose 131 H POC Glucose 119 H 128 H Lactic Acid Calcium Phosphorus Magnesium AST ALT Alkaline Phosphatase Lactate Dehydrogenase Troponin T C-Reactive Protein NT-Pro-B Natriuret Pep Total Protein Albumin LDL Cholesterol Direct Vitamin B12 Vancomycin Trough Crossmatch 12/28/21 12/28/21 12/29/21 09:05 09:05 04:40 WBC RBC 3.19 L Hgb 8.9 L Hct 26.4 L MCV MCH 27 L MCHC RDW 18.4 H 17.9 H Plt Count Seg Neuts % (Manual) Lymphocytes % (Manual) Seg Neutrophils # Man Lymphocytes # (Manual) Monocytes # (Manual) PT INR D-Dimer ABG pH ABG pO2 ABG HCO3 ABG O2 Saturation ABG Base Excess ABG Hemoglobin Oxyhemoglobin Sodium 135 L Potassium Chloride 97.8 L Carbon Dioxide BUN 18 H Creatinine 0.3 L Glucose POC Glucose Lactic Acid Calcium Phosphorus Magnesium AST ALT Alkaline Phosphatase Lactate Dehydrogenase Troponin T C-Reactive Protein NT-Pro-B Natriuret Pep Total Protein Albumin LDL Cholesterol Direct Vitamin B12 Vancomycin Trough Crossmatch 12/29/21 12/29/21 12/30/21 04:40 12:47 04:05 WBC RBC 3.29 L Hgb 8.7 L Hct 27.6 L MCV MCH 27 L MCHC RDW 17.6 H Plt Count Seg Neuts % (Manual) Lymphocytes % (Manual) Seg Neutrophils # Man Lymphocytes # (Manual) Monocytes # (Manual) PT INR D-Dimer ABG pH ABG pO2 ABG HCO3 ABG O2 Saturation ABG Base Excess ABG Hemoglobin Oxyhemoglobin Sodium 136 L Potassium Chloride Carbon Dioxide BUN Creatinine 0.3 L Glucose POC Glucose 67 L Lactic Acid Calcium 8.3 L Phosphorus Magnesium AST ALT Alkaline Phosphatase Lactate Dehydrogenase Troponin T C-Reactive Protein NT-Pro-B Natriuret Pep Total Protein Albumin LDL Cholesterol Direct Vitamin B12 Vancomycin Trough Crossmatch 12/30/21 12/31/21 12/31/21 04:05 00:07 04:00 WBC RBC 3.05 L Hgb 8.5 L Hct 25.5 L MCV MCH MCHC RDW 18.2 H Plt Count Seg Neuts % (Manual) Lymphocytes % (Manual) Seg Neutrophils # Man Lymphocytes # (Manual) Monocytes # (Manual) PT INR D-Dimer ABG pH ABG pO2 ABG HCO3 ABG O2 Saturation ABG Base Excess ABG Hemoglobin Oxyhemoglobin Sodium 136 L Potassium 3.5 L Chloride Carbon Dioxide BUN Creatinine 0.4 L Glucose POC Glucose 139 H Lactic Acid Calcium Phosphorus Magnesium 1.50 L AST ALT Alkaline Phosphatase Lactate Dehydrogenase Troponin T C-Reactive Protein NT-Pro-B Natriuret Pep Total Protein Albumin LDL Cholesterol Direct Vitamin B12 Vancomycin Trough Crossmatch 12/31/21 12/31/21 12/31/21 04:00 04:52 11:23 WBC RBC Hgb Hct MCV MCH MCHC RDW Plt Count Seg Neuts % (Manual) Lymphocytes % (Manual) Seg Neutrophils # Man Lymphocytes # (Manual) Monocytes # (Manual) PT INR D-Dimer ABG pH ABG pO2 ABG HCO3 ABG O2 Saturation ABG Base Excess ABG Hemoglobin Oxyhemoglobin Sodium Potassium Chloride Carbon Dioxide BUN 19 H Creatinine 0.4 L Glucose 116 H POC Glucose 121 H 116 H Lactic Acid Calcium Phosphorus Magnesium AST ALT Alkaline Phosphatase Lactate Dehydrogenase Troponin T C-Reactive Protein NT-Pro-B Natriuret Pep Total Protein Albumin LDL Cholesterol Direct Vitamin B12 Vancomycin Trough Crossmatch 12/31/21 01/01/22 01/01/22 17:42 04:31 04:31 WBC RBC 2.83 L Hgb 7.7 L Hct 23.2 L MCV MCH 27 L MCHC RDW 18.3 H Plt Count Seg Neuts % (Manual) Lymphocytes % (Manual) Seg Neutrophils # Man Lymphocytes # (Manual) Monocytes # (Manual) PT INR D-Dimer ABG pH ABG pO2 ABG HCO3 ABG O2 Saturation ABG Base Excess ABG Hemoglobin Oxyhemoglobin Sodium 135 L Potassium Chloride 97.7 L Carbon Dioxide BUN 21 H Creatinine 0.5 L Glucose 127 H POC Glucose 107 H Lactic Acid Calcium 8.0 L Phosphorus Magnesium AST ALT Alkaline Phosphatase Lactate Dehydrogenase Troponin T C-Reactive Protein NT-Pro-B Natriuret Pep Total Protein Albumin LDL Cholesterol Direct Vitamin B12 Vancomycin Trough Crossmatch 01/01/22 01/01/22 01/01/22 05:24 11:25 18:11 WBC RBC Hgb Hct MCV MCH MCHC RDW Plt Count Seg Neuts % (Manual) Lymphocytes % (Manual) Seg Neutrophils # Man Lymphocytes # (Manual) Monocytes # (Manual) PT INR D-Dimer ABG pH ABG pO2 ABG HCO3 ABG O2 Saturation ABG Base Excess ABG Hemoglobin Oxyhemoglobin Sodium Potassium Chloride Carbon Dioxide BUN Creatinine Glucose POC Glucose 124 H 140 H 144 H Lactic Acid Calcium Phosphorus Magnesium AST ALT Alkaline Phosphatase Lactate Dehydrogenase Troponin T C-Reactive Protein NT-Pro-B Natriuret Pep Total Protein Albumin LDL Cholesterol Direct Vitamin B12 Vancomycin Trough Crossmatch 01/01/22 01/02/22 01/02/22 23:26 04:01 04:01 WBC RBC 2.57 L Hgb 7.1 L Hct 21.5 L MCV MCH MCHC RDW 18.1 H Plt Count Seg Neuts % (Manual) Lymphocytes % (Manual) Seg Neutrophils # Man Lymphocytes # (Manual) Monocytes # (Manual) PT INR D-Dimer ABG pH ABG pO2 ABG HCO3 ABG O2 Saturation ABG Base Excess ABG Hemoglobin Oxyhemoglobin Sodium 131 L Potassium 3.5 L Chloride 94.8 L Carbon Dioxide BUN 27 H Creatinine Glucose 121 H POC Glucose 121 H Lactic Acid Calcium Phosphorus Magnesium AST ALT Alkaline Phosphatase Lactate Dehydrogenase Troponin T C-Reactive Protein NT-Pro-B Natriuret Pep Total Protein Albumin LDL Cholesterol Direct Vitamin B12 Vancomycin Trough Crossmatch 01/02/22 01/02/22 01/02/22 05:30 11:10 16:08 WBC RBC Hgb Hct MCV MCH MCHC RDW Plt Count Seg Neuts % (Manual) Lymphocytes % (Manual) Seg Neutrophils # Man Lymphocytes # (Manual) Monocytes # (Manual) PT INR D-Dimer ABG pH ABG pO2 ABG HCO3 ABG O2 Saturation ABG Base Excess ABG Hemoglobin Oxyhemoglobin Sodium Potassium Chloride Carbon Dioxide BUN Creatinine Glucose POC Glucose 124 H 117 H 130 H Lactic Acid Calcium Phosphorus Magnesium AST ALT Alkaline Phosphatase Lactate Dehydrogenase Troponin T C-Reactive Protein NT-Pro-B Natriuret Pep Total Protein Albumin LDL Cholesterol Direct Vitamin B12 Vancomycin Trough Crossmatch 01/02/22 01/02/22 01/03/22 17:30 23:26 04:53 WBC RBC 2.82 L Hgb 7.7 L Hct 23.4 L MCV MCH 27 L MCHC RDW 18.0 H Plt Count Seg Neuts % (Manual) Lymphocytes % (Manual) Seg Neutrophils # Man Lymphocytes # (Manual) Monocytes # (Manual) PT INR D-Dimer ABG pH ABG pO2 ABG HCO3 ABG O2 Saturation ABG Base Excess ABG Hemoglobin Oxyhemoglobin Sodium Potassium Chloride Carbon Dioxide BUN Creatinine Glucose POC Glucose 114 H Lactic Acid Calcium Phosphorus Magnesium AST ALT Alkaline Phosphatase Lactate Dehydrogenase Troponin T C-Reactive Protein NT-Pro-B Natriuret Pep Total Protein Albumin LDL Cholesterol Direct Vitamin B12 Vancomycin Trough 22.8 H Crossmatch 01/03/22 01/03/22 01/03/22 04:53 06:23 17:35 WBC RBC Hgb Hct MCV MCH MCHC RDW Plt Count Seg Neuts % (Manual) Lymphocytes % (Manual) Seg Neutrophils # Man Lymphocytes # (Manual) Monocytes # (Manual) PT INR D-Dimer ABG pH ABG pO2 ABG HCO3 ABG O2 Saturation ABG Base Excess ABG Hemoglobin Oxyhemoglobin Sodium 133 L Potassium Chloride 96.2 L Carbon Dioxide BUN 30 H Creatinine Glucose 107 H POC Glucose 122 H 107 H Lactic Acid Calcium Phosphorus Magnesium AST ALT Alkaline Phosphatase Lactate Dehydrogenase Troponin T C-Reactive Protein NT-Pro-B Natriuret Pep Total Protein Albumin LDL Cholesterol Direct Vitamin B12 Vancomycin Trough Crossmatch 01/04/22 01/04/22 01/04/22 04:00 12:32 16:45 WBC RBC Hgb Hct MCV MCH MCHC RDW Plt Count Seg Neuts % (Manual) Lymphocytes % (Manual) Seg Neutrophils # Man Lymphocytes # (Manual) Monocytes # (Manual) PT INR D-Dimer ABG pH ABG pO2 ABG HCO3 ABG O2 Saturation ABG Base Excess ABG Hemoglobin Oxyhemoglobin Sodium 132 L Potassium Chloride 92.8 L Carbon Dioxide BUN 30 H Creatinine Glucose 115 H POC Glucose 111 H 111 H Lactic Acid Calcium Phosphorus Magnesium 1.60 L AST ALT Alkaline Phosphatase Lactate Dehydrogenase Troponin T C-Reactive Protein NT-Pro-B Natriuret Pep Total Protein Albumin LDL Cholesterol Direct Vitamin B12 Vancomycin Trough Crossmatch 01/05/22 01/05/22 01/05/22 04:30 04:30 17:04 WBC RBC 3.11 L Hgb 8.4 L Hct 25.5 L MCV MCH 27 L MCHC RDW 17.6 H Plt Count Seg Neuts % (Manual) Lymphocytes % (Manual) Seg Neutrophils # Man Lymphocytes # (Manual) Monocytes # (Manual) PT INR D-Dimer ABG pH ABG pO2 ABG HCO3 ABG O2 Saturation ABG Base Excess ABG Hemoglobin Oxyhemoglobin Sodium 135 L Potassium Chloride 93.6 L Carbon Dioxide BUN 29 H Creatinine Glucose POC Glucose 67 L Lactic Acid Calcium Phosphorus Magnesium AST ALT Alkaline Phosphatase Lactate Dehydrogenase Troponin T C-Reactive Protein NT-Pro-B Natriuret Pep Total Protein Albumin LDL Cholesterol Direct Vitamin B12 Vancomycin Trough Crossmatch 01/05/22 01/06/22 01/06/22 23:27 04:06 04:06 WBC RBC 2.89 L Hgb 7.7 L Hct 23.8 L MCV MCH 27 L MCHC RDW 18.0 H Plt Count Seg Neuts % (Manual) Lymphocytes % (Manual) Seg Neutrophils # Man Lymphocytes # (Manual) Monocytes # (Manual) PT 16.9 H INR 1.23 H D-Dimer ABG pH ABG pO2 ABG HCO3 ABG O2 Saturation ABG Base Excess ABG Hemoglobin Oxyhemoglobin Sodium Potassium Chloride Carbon Dioxide BUN Creatinine Glucose POC Glucose 110 H Lactic Acid Calcium Phosphorus Magnesium AST ALT Alkaline Phosphatase Lactate Dehydrogenase Troponin T C-Reactive Protein NT-Pro-B Natriuret Pep Total Protein Albumin LDL Cholesterol Direct Vitamin B12 Vancomycin Trough Crossmatch 01/06/22 01/06/22 01/07/22 04:06 23:41 05:20 WBC RBC Hgb Hct MCV MCH MCHC RDW Plt Count Seg Neuts % (Manual) Lymphocytes % (Manual) Seg Neutrophils # Man Lymphocytes # (Manual) Monocytes # (Manual) PT INR D-Dimer ABG pH ABG pO2 ABG HCO3 ABG O2 Saturation ABG Base Excess ABG Hemoglobin Oxyhemoglobin Sodium 132 L Potassium Chloride 92.3 L Carbon Dioxide BUN 26 H Creatinine Glucose 111 H POC Glucose 120 H 111 H Lactic Acid Calcium Phosphorus Magnesium AST ALT Alkaline Phosphatase Lactate Dehydrogenase Troponin T C-Reactive Protein NT-Pro-B Natriuret Pep Total Protein Albumin LDL Cholesterol Direct Vitamin B12 Vancomycin Trough Crossmatch 01/07/22 01/07/22 01/07/22 11:30 17:00 23:41 WBC RBC Hgb Hct MCV MCH MCHC RDW Plt Count Seg Neuts % (Manual) Lymphocytes % (Manual) Seg Neutrophils # Man Lymphocytes # (Manual) Monocytes # (Manual) PT INR D-Dimer ABG pH ABG pO2 ABG HCO3 ABG O2 Saturation ABG Base Excess ABG Hemoglobin Oxyhemoglobin Sodium Potassium Chloride Carbon Dioxide BUN Creatinine Glucose POC Glucose 113 H 121 H 110 H Lactic Acid Calcium Phosphorus Magnesium AST ALT Alkaline Phosphatase Lactate Dehydrogenase Troponin T C-Reactive Protein NT-Pro-B Natriuret Pep Total Protein Albumin LDL Cholesterol Direct Vitamin B12 Vancomycin Trough Crossmatch Allied health notes reviewed: nursing
[2022-01-08] MEDS: PRAVASTATIN 20 MG TAB FEEDTUBE SCH (22:43)
[2022-01-08] MEDS: MELATONIN 5 MG TAB PO SCH (22:55)
[2022-01-08] MEDS: traZODone 50 MG TAB PO SCH (22:55)
[2022-01-09] MEDS: SENNOSIDES ORAL LIQD 8.8 MG/5 ML ORAL LIQD FEEDTUBE SCH ×2 (06:34→10:08)
[2022-01-09] MEDS: DOCUSATE SODIUM 100 MG/10 ML ORAL LIQD FEEDTUBE SCH ×2 (06:34→10:08)
[2022-01-09] MEDS: LEVOTHYROXINE 125 MCG TAB FEEDTUBE SCH ×2 (06:39→06:42)
[2022-01-09] MEDS: PRAVASTATIN 20 MG TAB FEEDTUBE SCH ×2 (07:06→22:58)
[2022-01-09] MEDS: SUCRALFATE 1 GM/10 ML ORAL LIQD FEEDTUBE SCH ×4 (07:07→17:46)
[2022-01-09] MEDS: MIDODRINE 5 MG TAB FEEDTUBE SCH ×3 (10:00→17:46)
[2022-01-09] MEDS: FUROSEMIDE 20 MG TAB PO SCH (10:06)
[2022-01-09] MEDS: LANSOPRAZOLE 30 MG SOLUTAB FEEDTUBE SCH ×2 (10:06→22:51)
[2022-01-09] MEDS: HYDROcodone/ACETAMINOPHEN 10-325MG TAB FEEDTUBE SCH ×4 (10:06→20:55)
[2022-01-09] MEDS: GABAPENTIN 100 MG CAP FEEDTUBE SCH (10:06)
[2022-01-09] MEDS: METOPROLOL TARTRATE 25 MG TAB FEEDTUBE SCH ×2 (10:06→22:44)
[2022-01-09] MEDS: QUEtiapine 25 MG TAB FEEDTUBE SCH ×2 (10:07→22:43)
[2022-01-09] MEDS: SPIRONOLACTONE 25 MG TAB FEEDTUBE SCH (10:07)
[2022-01-09] MEDS: busPIRone 5 MG TAB FEEDTUBE SCH ×2 (10:07→22:44)
[2022-01-09] MEDS: POLYETHYLENE GLYCOL 3350 17 GM POWDER FEEDTUBE SCH (10:08)
[2022-01-09 11:53] LABS: LDH,Body Fluid 149; Total Protein,Body Fluid < 3.0 (15.0-45.0)
--- NOTE | 2022-01-09 12:45 | Progress Note ---
Assessment and Plan Assessment and plan: History Interval history: This is an 82-year-old female with DM, HTN , CHB s/p PPM, CAD s/p PCI and arthritis who presented to the emergency department on 11/04 for shortness of breath ongoing for the past 3 days, cough and according to family a fever of 102.2. Upon arrival of EMS patient was found to be tachypneic and hypoxic with SPO2 of 76% on room air which later improved to 88% on nonrebreather. Work-up in the emergency department included a CXR which showed bilateral interstitial pulmonary edema with bilateral pleural effusions and bibasilar opacities, leukocytosis and anemia with a hemoglobin of 6.1. Patient was admitted to the hospitalist service with acute anemia, acute hypoxic respiratory failure, bilateral pneumonia and COVID-19 PUI with consults to pulmonology, infectious disease and later cardiology. Patient was eventually intubated in the emergency department on 11/06. Hospital Course to date: 11/04/2021: Empiric therapy with iv levaquin/vancomycin. COVID PCR pending. Will consult ID. PCCM consulted, will follow recs. Hypotensive this AM, ordered bolus and fluids at 150 cc/hr. May require pressor support if bp does not improve. 11/05/2021: GBS on bcx +, currently on rocephin IV. Currently on bipap due to respiratory distress overnight. Worsening BL opacities on CXR. May be volume overload vs pneumonia. Unfortunately bp too low for lasix at this point. WIll continue levophed and bipap. Once able to tolerate, may do trial of albumin/lasix. Call attempt made to Niraj, no response. Will try again tomorrow to update. 11/06/2021: Decompensated overnight requiring intubation. CXR shows worsening interstitial infiltrates. Currenlty on dopamine, levophed, vasopressin. PICC line ordered. Advised RN to place gamble for I/O monitoring. Would benefit from diuresis but very volume overloaded. Prognosis guarded 11/08: Off sedation this am, remains unresponsive only grimace to pain. Hold all sedatives agents for now, patient is off pressors this am. Hypernatremia from today's lab- D5W X1bag, and low K repleted, repeat lab in the am. Severe constipation also noted from KUB, BR added. 11/09: Sudden SPO2 drop in the 60s this am. Patient was manually bagged and deep suctioned. Patient is currently stable on the vent, repeat CXR with no significant change. D/w CCM Mucomyst and brochodilator added. Patient mentation is unchanged, continue to hold off on sedative agents. Neurology consulted. 11/10: Acute DVT noted on bilateral lower extremity Doppler ultrasound therefore she was started on Lovenox treatment dose. Failed SBT. Hypernatremia and hyperchloremia noted, free water flush adjusted. 11/11: Patient noted to be febrile with increasing of the cytosis, UA/BC sent and CXR ordered. ID escalated antibiotics to cefepime. CXR demonstrated mucous plug, bedside bronchoscopy was performed and O ETT was changed over bougie from 6 cm to 7.5. Patient was noted to have a pneumothorax postprocedure and chest tube was placed. Family updated by [facility]. Free water flush increased and will add Jaswant supplementation. 11/12: Patient not noted to follow commands, hypernatremia worsen/persist, increasing free water flush, potassium and magnesium and phosphorus repleted. Hemoglobin noted to be 7./24.5 from 7.03/12 yesterday. We will continue to trend and monitor. Vent changes per [facility]. Repeat CXR showed no residual pneumothorax. Consider waterseal tomorrow. Given persistent leukocytosis antibiotics escalated to cefepime per ID. 11/13: Remains on cefepime and vancomycin, vent changes per [facility]. Anemia noted and given 1 unit PRBC. And beta-charleen held in setting of Levophed drip infusing. Remains on fentanyl drip. 11/14: Patient put on CPAP trial by [facility], will continue chest tube until after extubation. Will rest on assist control. CT brain was cancelled by graduate assistant athletic trainer and reordered. 11/15: Patient removed chest tube overnight. Will obtain cxr. remains on low dose levo. CTH completed with no acute findings. RT to place on CPAP. 11/16: Hypernatremia/hyperchloremia noted on the increase of day water flushes. Anemia noted and ordered PRBC. asked RT to place on cpap but not done yet 11/17: Patient remains on the vent, awake and following commands. H&H stable s/p 2units PRBCs. GI on consult, no intervention at this time. Will continue protonix gtt and serial H&H Q6hrs. Keep patient NPO for now, D5w added for hypernatremia and NPO status. Plan for IVC filter placement today by Vascular. 11/18: Patient is s/p IVC filter. H&H continue to trend down, hbg 6.1 this am, 1 unit of PRBCs ordered. Plan for possible EGD today by GI. Keep patient NPO, continue PPI drip and serial H&H Q6hrs. Electrolytes repleted, repeat lab in the am 11/19: S/p EGD- larger duodenal ulcer noted, see operative note. GI recommendations noted also noted. H&H stable this am. Keep patient on protonix gtt for now. Will keep patient NPO, continue IVF and serial H&H for now. Electrolytes repleted, repeat labs in the am 11/20: Very agitated and restless this am, fentanyl gtt resumed. Patient remains on protonix gtt, H&H remains stable. Will switch protonix gtt to IV BID, continue carafate and okay to resume meds at this time. Will F/u with GI to see if TF can be resumed. Gamble was reinserted overnight for retention. Electrolytes repleted, repeat in the am. Plan for possible PST today for possible extubation per CCM. 11/21: Patient is now on seroquel and patient's home buspar resumed. Patient more calm this morning, fentanyl gtt is off. H&H remains stable and patient is tolerating TF. Patient had a runs of Vtach/PVCs this am, BB added per Cardio. Continue daily PS and wean trial for possible extubation. 11/22: Back on fentanyl gtt overnight , RASS o to -1, following commands. Patient failed PST this am due to increased work of breathing and low SPO2, ABG pending. Patient is also with worsen pitting edema, lasix is still on hold. Will discuss with cardio and CCM to possibly resume lasix. 11/23: MARIA DEL CARMEN overnight. Patient failed PST again this am. Per CCM plan for possible trach and PEG, hold off on IV lasix for now. General surgery consulted and family is aware of possible Trach and PEG. 11/24: Trach/PEG pending this week, continue SBT/SAT as tolerated. No acute events reported overnight. 11/25: Patient was n.p.o. overnight and will remain n.p.o. tonight for trach/PEG tomorrow morning. She failed to support trial again. KUB obtained due to distended belly. 11/26: Patient scheduled for tracheostomy and PEG tube placement today, has been n.p.o. since midnight. No acute events reported overnight. [facility] ordered simethicone scheduled. 11/27: No acute events reported overnight, patient received trach/PEG yesterday. Has been on feedings since last night. Still awaiting LTAC placement. 11/28: Patient magnesium repleted, repeat a.m. labs, SBT 11/29: Patient complains of chest pain but ECG obtained which showed no acute findings, ordered troponin. Patient failed CPAP yesterday and was trialed again today. levophed was restarted but will aggressively wean 11/30: Patient failed SBT. Continue supportive care. Started gabapentin today 12/01: MARIA DEL CARMEN overnight. Continue daily PST. Case management to arrange possible placement 12/02: Report of dark stools overnight, patient is hemodynamically stable. H&H stable, patient is on PPI. Will continue to trend H&H. Continue daily PST as tolerated. Awaiting LTAC vs SNF placement. 12/03: Hypotensive overnight, requiring low dose pressors. S/p X3 days of gentle diurese. Will continue to monitor, wean off pressors as tolerated for MAP of 65. Patient Failed PST yesterday, case management to follow up with insurance for possible LTAC placement. Continue daily PST as tolerated. PT eval and treat ordered. 12/04: Increased agitation and anxiety overnight, remains on buspar and seroquel, trazadone added to promote rest. Patient is now working with PT, keep patient engage and awake during the day so she can rest at night. No BM for over 5 days, BR was adjusted. Patient did not tolerate PST again yesterday, continue daily PST as tolerated. Continue to titrate pressor for MAP above 65. Pending possible LTAC placement, case management to arrange. 12/05: Still not getting much rest overnight, will add melatonin for sleep. Continue to engage patient during the day and promote rest at night. TF was held due to concern for possible bleeding, H&H remains stable and stools normal this am. Resume TF and continue PPI and carafate. Remains on low dose levophed, titrate as tolerated. Continue daily PST. Possible LTAC placement, awaiting approval. 12/06: MARIA DEL CARMEN overnight. Patient rested overnight. Continue supportive measures. Daily PST as tolerated. Awaiting possible LTAC placement 12/07: MARIA DEL CARMEN overnight. Plan for Tpiece trial today. Continue current supportive measures. Possible LTAC placement 12/08: Patient placed on pressure support trial again today, started on Xanax, no acute events reported overnight. Awaiting insurance approval for LTAC. 12/09: Levophed discontinued, LTAC transfer denied, started on midodrine and Lasix, ultrasound chest pending, started on Xanax 0.[address] De León updated family at bedside today. Started on Dilaudid every 3 hours as needed. 12/10: Patient placed on CPAP trial this morning, no acute events reported overnight. Will order ultrasound-guided thoracentesis. 12/11: Patient had a thoracentesis today, will decrease Xanax dosage and continue midodrine and diuresing. Patient failed CPAP today. 12/12: Patient not tolerate CPAP trials today, no acute events reported overnight 12/13: No acute events overnight. continue PSV trials as tolerated. Daughter updated at bedside 12/14: Patient noted to be anemic today, ordered gastric occult. Patient seems to be oversedated therefore Xanax changed to as needed and fentanyl patch discontinued. We will continue to monitor hyponatremia. 12/15: MARIA DEL CARMEN overnight. s/p 1unit of PRBCs, H&H stable this am, no signs of any active bleeding. Continue daily PST as tolerated. Awaiting placement. 12/16: Hypertensive this am, Midodrine decreased. Continue daily PST. MARIA DEL CARMEN overnight 12/17: Patient Hgb dropped to 6 this am, no s/s of any active bleeding, VSS. Patient received 1unit of PRBC, will continue to trend H&H. Patient was pancultured and back on IV Abx due to persistent fevers yesterday. ID is also back on the case. Continue IV Abx per ID and f/u on cultures data for sensitivity. Patient also failed PST yesterday, continue daily PST as tolerated. Electrolytes repleted, repeat labs in the am. 12/18: Patient blood cultures is growing GPC 4 out 4 bottles. PICC line D/Rivas, patient is already on IV Abx-cefepine and Vanc and ID is following. Patient remains hemodynamically stable. Daily PST as tolerated adn PRN Benzo for anxiety. 12/19: MARIA DEL CARMEN overnight. Culture data noted, continue IV Abx per ID. Orders placed for repeat Bculture. Gamble D/C overnight, patient is voiding. Check bladder scan as needed for retention. Patient failed PST again today. Continue daily PST as tolerated. 12/20: Fevers improved, Cultures +MRSA, on Vanco per ID. Repeat 2D Echo to r/o endocarditis. Patient continue to fail PST, PEEP increased to 8 today. Continue pulmonary hygiene and vent wean per CCM. Sodium tab added for hyponatremia. 12/22: Patient on pressure support trial for approximately 4 hours today, midodrine dosage increased due to hypotension. Lasix discontinued. 12/23: Started on a.m. Seroquel dose, midodrine increased to 10 mg 3 times daily, 500 mL normal saline bolus. 12/24: Seroquel dose changed (25 every morning, 75 nightly). updated at bedside by Dr. De León. CPAP trials as tolerated. Continue vancomycin. Awaiting placement. 12/25: Continue CPAP as tolerated, added gasx for distention. Continue supportive care 12/26: Patient failed PSV this AM. no acute events overnight. 12/27: GI re-consulted due to abdominal distention. No acute events reported overnight. CPAP trials as tolerated. Dr. Mckenna will get a KUB to rule out po ssible obstruction. 12/28: KUB shows no acute process, CXR shows improvement. CPAP trials as tolerat ed. 12/29: CT Abd/pelvis noted with moderated bilateral pleural effusion, anasarca, and ascites. X1dose of IV lasix administered. D/w CCM and GI orders plan for thora and paracentesis by IR. Will also start patient on aldactone Qday. Patient is tolerating trickle feeds this am, continue TF and BR adjusted for constipation. Plan of care was discussed with patient and her at the bedside. Thorough discussion on patient's overall poor prognosis and that patient will most likely be vent dependent. Patient's voiced understanding of the info given. All questions and concerns were voiced at this time. 12/30: Patient did not tolerate thoracentesis in IR yesterday due to change in LOC and hypoxia. Plan for possible bedside thoracentesis and paracentesis today. Patient remains afebrile. Patient required nursing home IV abx therapy [id number] left, orders placed for a PICC. Patient remains with sign. Piting edema and anasarca, X1 does of PO Zaroxolyn and 2m of IV lasix given. Electrolytes repleted, repeat lab in the am. 12/31: Tolerated Rt. thoracentesis at the bedside yesterday, 1.4L removed. Patient remains stable on the vent this am, tolerating CPAP today PS dropped to 14. Recent CXR noted, left pleural effusion improved. Patient tolerated gentle diurese yesterday, good urine output reported. D/w CCM hold off on Left thoracentesis today, continue PO Aldactone and additonal zaroxolyn and IV lasix again today. F/u CXR in the am. 01/01: This am CXR noted with worsening bilateral pleural effusion. Patient is stable and tolerating PST this am, however PS is back up to 20 this am. BP is soft this am will hold off on IV diuretic for today, continue PO Aldactone. D/w CCM continue gentle diurese as tolerated. Will reassess in the am. Continue support care. 01/02: MARIA DEL CARMEN overnight. VSS this am, tolerating PST. X1dose of 25% IV Albumin following with 20mg IV Lasix today. Continue daily gentle diurese if hemodynamics tolerate it. Continue to monitor and replace electrolytes as needed 01/03: Abdominal distention and vomiting overnight, 600cc of gastric residual removed, TF held. KUB with no acute abnormality. Reglan added X2days, resume TF, and continue BR. Patient is tolerating PST this am. Hemodynamics remains stable, will continue gentle IV diurese. close monitoring to renal function and electrolytes. 01/04: Tolerating TF, nausea/vomiting resolved, last BM on 01/03. Continue Reglan X1 more day. Patient continue to tolerate PST. D/W CCM continue gentle diurese. F/U CXR in the am. Possible US thoracentesis tomorrow. 01/05: no acute events overnight. scheduled for thoracentesis today but procedure pushed to tomorrow. TF restarted and will be NPO post MN. 01/06: planned thoracentesis today. Working with CM for ltac/snf approval. 01/07: s/p thoracentesis 120 cc appears to have been removed. Pulm recommendations noted, agree with continued diuresis and weaning. Continued planning with CM for ltac/snf placement. 01/08: No new issues. Continue vent weaning per pulmonary. Continuing to work with CM for placement. 01/09: No new issues. Continue vent weaning per pulmonary. Continuing to work with CM for placement. Ordered BMP for tomorrow to check kidney function as patient is currently being diuresed. Assessment and Plan Neuro : Anxiety, chronic pain -Neurology consulted, appreciate recommendations -CT brain showed no acute events -EEG interpreted as abnormal record due to diffuse slowing noted throughout the recording, suggestive of encephalopathic process and/or drug effect, possibilities of postictal state cannot be totally excluded. Clinical correlation is in order -MRI brain not obtained-> patient has metal in her body -Repeat CT head with no acute findings -Reorientation as needed -Ammonia 42, B12 1823, TSH 1.5 -BuSpar, Seroquel, Mitchell, gabapentin -prn xanax and Dilaudid Cardio: Acute Heart failure with reduced EF, h/o chronic heart block s/p PPM, HTN, CAD s/p PCI (2004), Moderate pulmonary HTN, cardiomyopathy -s/p vasopressor support with levophed -11/04 echocardiogram shows EF 30 to 35%, Moderate pulmonary HTN RVSP 49 -3/4 echo with 35-40% EF -Cardiology consulted, appreciate recommendations -Continue beta-charleen and statin therapy -Midodrine (titrate as needed) -Not on aspirin due to allergy -Blood pressure monitoring per protocol -As needed nitroglycerin Resp: Acute hypoxic respiratory failure secondary to bilateral pneumonia, bilateral pleural effusion. Right pneumothorax (resolved) -COVID-19 PCR negative -Intubated on 11/06 with 6.00 ETT at 18 at the lip and changed over bougie on 11/11-7.50 ETT at 20 at the lip -See RT notes for titration -PSV as tolerated -Surgery consult for trach -Received trach/PEG on 11/26 -S/p bedside bronchoscopy on 11/11 complicated by pneumothorax -S/p chest tube placement for right pneumothorax and dislodgment by patient on 11/15 -ABG/CXR per CCM -VAP bundle -Right chest wall ultrasound showed pleural effusion s/p chest tube -12/11 US thoracentesis removed 1L fluid -12/29 US thoracentesis removed 1.4L fluid -01/06 thoracentesis planned -SPO2 monitoring GI: S/p GI bleed, duodenal ulcer, transaminitis -GI consulted, appreciate recommendations-signed off -Nutrition consult for tube feeding -BR: Senokot -s/p peg 11/26 -H2 charleen -Carafate -24-hour +428 ml -10/2021 Gastric occult positive -> EGD-> duodenal ulcer -12/14 occult stool positive : Urinary retention (resolved), hyponatremia, hypochloremia -Strict intake and output -Trend BMP ID: Septic shock (POA-resolved), bilateral pneumonia, MRSA bacteremia/pna -Infectious disease consulted, appreciate recommendations -COVID-19 PCR negative -Presented with fevers, leukocytosis and hypotension -11/04 blood cultures positive with a group B strep bacteremia 12/19 however repeat blood cultures on the with no growth to date -Echo showed no evidence of vegetation -repeat echo showed EF 35-40 % with no vegetations -ABX therapy: IV vancomycin for 4 weeks (12/16-01/26) -Monitor WBC and fever curve -Bedside bronchoscopy for mucous plug on CXR 11/11 -f/u blood cultures Heme: Acute DVT in the right external iliac vein, common femoral vein, superior aspect of femoral vein, Acute microcytic anemia -Evidenced on bilateral upper lower extremity ultrasound -S/p 7 unit PRBC -Trend CBC -Transfuse for hemoglobin less than 7 -heparin gtt dc d/t anemia -S/p IVC filter Endo: h/o DM and hypothyroidism -Continue home Synthroid -SSI -Accu-Cheks every 6 -Avoid hypoglycemia Disposition: Denied LTAC placement by insurance, appeal denied. Awaiting subacute rehab placement The high probability of a clinically significant, sudden or life threatening deterioration of the [pulm,mental health, CV] system(s) required my full and direct attention, intervention and personal management. The aggregate critical care time was [60] minutes. This time is in addition to time spent performing reported procedures but includes the following: [x] Data Review and interpretation [x] Patient assessment and monitoring of vital signs [x] Documentation [x] Medication orders and management Disposition Plan: imcu Total Time Spent with Patient (Minutes): 60 History Interval history: Patient seen and evaluated. In no distress. Resting comfortably. Hospitalist Physical - Physical exam Narrative exam: Physical Exam: VITAL SIGNS: Reviewed. GENERAL: The patient appears normally developed, Vital signs as documented. Frail appearing elderly woman. HEAD: No signs of head trauma. EYES: Pupils are equal. Extraocular motions intact. EARS: Hearing grossly intact. MOUTH: Oropharynx is normal. NECK: No adenopathy, no JVD. CHEST: Bl rhonchi CARDIAC: Regular rate and rhythm. S1 and S2, without murmurs, gallops, or rubs. VASCULAR: No Edema. Peripheral pulses normal and equal in all extremities. ABDOMEN: Soft, non tender and non distended. No rebound or guarding, and no masses palpated. Bowel Sounds normal. MUSCULOSKELETAL: Good range of motion of all major joints. Extremities without clubbing, cyanosis or edema. NEUROLOGIC EXAM: Alert and oriented x 4. no focal sensory or strength deficits. PSYCHIATRIC: anxious appearing SKIN: detail exam as documented in skin assessment - Constitutional Vitals: Temp Pulse Resp BP Pulse Ox 97.5 F L 60 17 121/49 99 01/09/22 04:00 01/09/22 12:35 01/09/22 12:35 01/09/22 12:35 01/09/22 12:35 General appearance: Present: no acute distress, other (Trach and on the vent) HEART Score - HEART Score Troponin: Troponin T 0.045 ng/mL (0.00-0.029) H 11/29/21 20:15 Results - Labs CBC & Chem 7: 01/06/22 04:06 01/06/22 04:06 Labs: Laboratory Last Values WBC 7.7 K/mm3 (4.5-11.0) 01/06/22 04:06 RBC 2.89 M/mm3 (3.65-5.03) L 01/06/22 04:06 Hgb 7.7 gm/dl (10.1-14.3) L 01/06/22 04:06 Hct 23.8 % (30.3-42.9) L 01/06/22 04:06 MCV 82 fl (79-97) 01/06/22 04:06 MCH 27 pg (28-32) L 01/06/22 04:06 MCHC 33 % (30-34) 01/06/22 04:06 RDW 18.0 % (13.2-15.2) H 01/06/22 04:06 Plt Count 225 K/mm3 (140-440) 01/06/22 04:06 Add Manual Diff Complete 12/20/21 04:54 Total Counted 100 12/20/21 04:54 Seg Neutrophils % Cupola Patcher Helper 11/06/21 15:50 Seg Neuts % (Manual) 88.0 % (40.0-70.0) H 12/20/21 04:54 Band Neutrophils % 0 % 12/20/21 04:54 Lymphocytes % (Manual) 6.0 % (13.4-35.0) L 12/20/21 04:54 Reactive Lymphs % (Man) 0 % 12/20/21 04:54 Monocytes % (Manual) 5.0 % (0.0-7.3) 12/20/21 04:54 Eosinophils % (Manual) 1.0 % (0.0-4.3) 12/20/21 04:54 Basophils % (Manual) 0 % (0.0-1.8) 12/20/21 04:54 Metamyelocytes % 0 % 12/20/21 04:54 Myelocytes % 0 % 12/20/21 04:54 Promyelocytes % 0 % 12/20/21 04:54 Blast Cells % 0 % 12/20/21 04:54 Nucleated RBC % Not Reportable 12/20/21 04:54 Seg Neutrophils # Man 10.8 K/mm3 (1.8-7.7) H 12/20/21 04:54 Band Neutrophils # 0.0 K/mm3 12/20/21 04:54 Lymphocytes # (Manual) 0.7 K/mm3 (1.2-5.4) L 12/20/21 04:54 Abs React Lymphs (Man) 0.0 K/mm3 12/20/21 04:54 Monocytes # (Manual) 0.6 K/mm3 (0.0-0.8) 12/20/21 04:54 Eosinophils # (Manual) 0.1 K/mm3 (0.0-0.4) 12/20/21 04:54 Basophils # (Manual) 0.0 K/mm3 (0.0-0.1) 12/20/21 04:54 Metamyelocytes # 0.0 K/mm3 12/20/21 04:54 Myelocytes # 0.0 K/mm3 12/20/21 04:54 Promyelocytes # 0.0 K/mm3 12/20/21 04:54 Blast Cells # 0.0 K/mm3 12/20/21 04:54 WBC Morphology Not Reportable 12/20/21 04:54 Hypersegmented Neuts Not Reportable 12/20/21 04:54 Hyposegmented Neuts Not Reportable 12/20/21 04:54 Hypogranular Neuts Not Reportable 12/20/21 04:54 Smudge Cells Not Reportable 12/20/21 04:54 Toxic Granulation Not Reportable 12/20/21 04:54 Toxic Vacuolation Not Reportable 12/20/21 04:54 Dohle Bodies Not Reportable 12/20/21 04:54 Pelger-Huet Anomaly Not Reportable 12/20/21 04:54 Irina Rods Not Reportable 12/20/21 04:54 Platelet Estimate Consistent w auto 12/20/21 04:54 Clumped Platelets Not Reportable 12/20/21 04:54 Plt Clumps, EDTA Not Reportable 12/20/21 04:54 Large Platelets Not Reportable 12/20/21 04:54 Giant Platelets Not Reportable 12/20/21 04:54 Platelet Satelliting Not Reportable 12/20/21 04:54 Plt Morphology Comment Not Reportable 12/20/21 04:54 RBC Morphology Not Reportable 12/20/21 04:54 Dimorphic RBCs Not Reportable 12/20/21 04:54 Polychromasia Not Reportable 12/20/21 04:54 Hypochromasia Not Reportable 12/20/21 04:54 Poikilocytosis Not Reportable 12/20/21 04:54 Anisocytosis 1+ 12/20/21 04:54 Microcytosis Not Reportable 12/20/21 04:54 Macrocytosis Not Reportable 12/20/21 04:54 Spherocytes Not Reportable 12/20/21 04:54 Pappenheimer Bodies Not Reportable 12/20/21 04:54 Sickle Cells Not Reportable 12/20/21 04:54 Target Cells Not Reportable 12/20/21 04:54 Tear Drop Cells Not Reportable 12/20/21 04:54 Ovalocytes Not Reportable 12/20/21 04:54 Helmet Cells Not Reportable 12/20/21 04:54 [place] Bodies Not Reportable 12/20/21 04:54 [place] Rings Not Reportable 12/20/21 04:54 [place] Cells Not Reportable 12/20/21 04:54 Bite Cells Not Reportable 12/20/21 04:54 Crenated Cell Not Reportable 12/20/21 04:54 Elliptocytes Not Reportable 12/20/21 04:54 Acanthocytes (Spur) Not Reportable 12/20/21 04:54 Rouleaux Not Reportable 12/20/21 04:54 Hemoglobin C Crystals Not Reportable 12/20/21 04:54 Schistocytes Not Reportable 12/20/21 04:54 Malaria parasites Not Reportable 12/20/21 04:54 Godfrey Bodies Not Reportable 12/20/21 04:54 Hem Pathologist Commnt No 12/20/21 04:54 PT 16.9 Sec. (12.2-14.9) H 01/06/22 04:06 INR 1.23 (0.87-1.13) H 01/06/22 04:06 APTT 29.2 Sec. (24.2-36.6) 11/26/21 05:00 D-Dimer 2655.00 ng/mlDDU (0-234) H 11/11/21 04:28 ABG pH 7.479 pH Units (7.350-7.450) H 12/16/21 20:52 ABG pCO2 37.5 mm Hg 12/16/21 20:52 ABG pO2 79.3 mm Hg (80.0-90.0) L 12/16/21 20:52 ABG HCO3 27.3 mmol/L (20.0-26.0) H 12/16/21 20:52 ABG O2 Saturation 97.0 % (95.0-99.0) 12/16/21 20:52 ABG O2 Content 12.3 (0.0-44) 12/16/21 20:52 ABG Base Excess 3.6 mmol/L (-2.0-3.0) H 12/16/21 20:52 ABG Hemoglobin 9.1 gm/dl (12.0-16.0) L 12/16/21 20:52 ABG Carboxyhemoglobin 1.6 % (0.0-5.0) 12/16/21 20:52 ABG Methemoglobin 0.5 % (0.0-1.5) 12/16/21 20:52 Oxyhemoglobin 94.9 % (95.0-99.0) L 12/16/21 20:52 FiO2 30 % 12/16/21 20:52 Sodium 132 mmol/L (137-145) L 01/06/22 04:06 Potassium 3.6 mmol/L (3.6-5.0) 01/06/22 04:06 Chloride 92.3 mmol/L (98-107) L 01/06/22 04:06 Carbon Dioxide 27 mmol/L (22-30) 01/06/22 04:06 Anion Gap 16 mmol/L 01/06/22 04:06 BUN 26 mg/dL (7-17) H 01/06/22 04:06 Creatinine 0.6 mg/dL (0.6-1.2) 01/06/22 04:06 Estimated GFR > 60 ml/min 01/06/22 04:06 BUN/Creatinine Ratio 43 % 01/06/22 04:06 Glucose 111 mg/dL (65-100) H 01/06/22 04:06 POC Glucose 118 mg/dL (70-105) H 01/08/22 16:23 Lactic Acid 3.70 mmol/L (0.7-2.0) H* 11/03/21 22:32 Calcium 8.7 mg/dL (8.4-10.2) 01/06/22 04:06 Phosphorus 3.80 mg/dL (2.5-4.5) 01/05/22 04:30 Magnesium 2.00 mg/dL (1.7-2.3) 01/05/22 04:30 Ferritin 52.6 ng/mL (10.0-200.0) 11/05/21 06:11 Total Bilirubin 0.50 mg/dL (0.1-1.2) 11/17/21 05:56 Direct Bilirubin < 0.2 mg/dL (0-0.2) 11/11/21 04:28 Indirect Bilirubin 0.1 mg/dL 11/11/21 04:28 AST 36 units/L (5-40) 11/17/21 05:56 ALT 47 units/L (7-56) 11/17/21 05:56 Alkaline Phosphatase 107 units/L (35-129) 11/17/21 05:56 Ammonia 42.0 umol/L (25-60) 11/10/21 14:08 Lactate Dehydrogenase 187 units/L (91-180) H 11/05/21 06:11 Troponin T 0.045 ng/mL (0.00-0.029) H 11/29/21 20:15 C-Reactive Protein 22.20 mg/dL (0.00-1.30) H 11/05/21 06:11 NT-Pro-B Natriuret Pep 7895 pg/mL (0-900) H 11/03/21 22:32 Total Protein 5.1 g/dL (6.3-8.2) L 11/17/21 05:56 Albumin 2.2 g/dL (3.9-5) L 11/17/21 05:56 Albumin/Globulin Ratio 0.8 % 11/17/21 05:56 Triglycerides 59 mg/dL (2-149) 11/29/21 20:15 Cholesterol 74 mg/dL (50-199) 11/29/21 20:15 LDL Cholesterol Direct 25 mg/dL (50-130) L 11/29/21 20:15 HDL Cholesterol 41 mg/dL (40-59) 11/29/21 20:15 Cholesterol/HDL Ratio 1.80 % 11/29/21 20:15 Vitamin B12 1823 pg/mL (211-911) H 11/10/21 14:08 TSH 1.510 mlU/mL (0.270-4.200) 11/10/21 14:08 Urine Color Yellow (Yellow) 11/11/21 09:00 Urine Turbidity Slightly-cloudy (Clear) 11/11/21 09:00 Urine pH 5.0 (5.0-7.0) 11/11/21 09:00 Ur Specific [place] 1.009 (1.003-1.030) 11/11/21 09:00 Urine Protein <15 mg/dl mg/dL (Negative) 11/11/21 09:00 Urine Glucose (UA) Neg mg/dL (Negative) 11/11/21 09:00 Urine Ketones Neg mg/dL (Negative) 11/11/21 09:00 Urine Blood Mod (Negative) 11/11/21 09:00 Urine Nitrite Neg (Negative) 11/11/21 09:00 Urine Bilirubin Neg (Negative) 11/11/21 09:00 Urine Urobilinogen < 2.0 mg/dL (<2.0) 11/11/21 09:00 Ur Leukocyte Esterase Neg (Negative) 11/11/21 09:00 Urine WBC (Auto) < 1.0 /HPF (0.0-6.0) 11/11/21 09:00 Urine RBC (Auto) < 1.0 /HPF (0.0-6.0) 11/11/21 09:00 Fluid Type Pleural 01/06/22 13:40 Fluid Color Yellow 01/06/22 13:40 Fluid Appearance Hazy 01/06/22 13:40 Fluid WBC 273 /mm3 01/06/22 13:40 Fluid RBC 45 /mm3 01/06/22 13:40 Fluid Seg Neutrophils 47.0 % 01/06/22 13:40 Fluid Lymphocytes 22.0 % 01/06/22 13:40 Fluid Monocytes 10.0 % 01/06/22 13:40 Fluid Eosinophils 19.0 % 01/06/22 13:40 Fluid Basophils 2.0 % 01/06/22 13:40 Fluid Glucose 96 mg/dL (40-70) H 01/06/22 13:40 Fluid Total Protein < 3.0 (15.0-45.0) L 01/06/22 13:40 Fluid LDH 149 01/06/22 13:40 Vancomycin Trough 13.7 ug/mL (5.0-20.0) 01/08/22 06:33 Random Vancomycin 10.5 ug/mL (0-40.0) 01/04/22 05:00 Coronavirus (PCR) Negative (Negative) 11/10/21 08:30 Blood Type O POSITIVE 12/14/21 10:30 Antibody Screen Negative 12/14/21 10:30 Crossmatch See Detail 12/14/21 10:30 Gamble/IV: Voiding Method External Female Catheter Active Medications - Current Medications Current Medications: Generic Name Dose Route Start Last Admin Trade Name Freq PRN Reason Stop Dose Admin Acetaminophen 650 mg 12/14/21 04:12 01/01/22 11:45 Acetaminophen 325 Mg/10.15 Ml Oral Liqd Unit Dose FEEDTUBE 650 mg Q6H PRN Administration Non Cardiac Pain or Temp>100.5 Hydrocodone Bitart/Acetaminophen 1 each 11/21/21 10:00 01/09/22 10:06 Hydrocodone/Acetaminophen 10-325mg Tab FEEDTUBE 1 each TID YOSSI Administration Alprazolam 0.25 mg 12/30/21 09:00 01/08/22 23:34 Alprazolam 0.25 Mg Tab FEEDTUBE 0.25 mg Q8H PRN Administration Agitation Lipase/Protease/Amylase 1 each 11/08/21 11:09 Lipase 10,500/Protease 25,000/Amylase 43,750 (Units) Dr Lema FEEDTUBE PRN PRN For Clogged Feeding Tube Buspirone HCl 7.5 mg 12/30/21 10:00 01/09/22 10:07 Buspirone 5 Mg Tab FEEDTUBE 7.5 mg BID YOSSI Administration Dextrose 0 ml 11/10/21 10:52 12/30/21 00:48 Dextrose 10% *Hypoglycemia IV 50 ml PRN PRN Administration Hypoglycemia Docusate Sodium 100 mg 12/30/21 10:00 01/09/22 10:08 Docusate Sodium 100 Mg/10 Ml Oral Liqd FEEDTUBE Not Given BID YOSSI Furosemide 20 mg 01/08/22 10:00 01/09/22 10:06 Furosemide 20 Mg Tab PO 20 mg QDAY YOSSI Administration Gabapentin 100 mg 12/30/21 10:00 01/09/22 10:06 Gabapentin 100 Mg Cap FEEDTUBE 100 mg QDAY YOSSI Administration Hydrophilic Ointment 1 applic 11/06/21 04:02 Lip Therapy Vaseline TP Q2HR PRN Dry Lips Vancomycin HCl 1 gm in 250 mls @ 166.667 mls/hr 01/04/22 10:00 01/08/22 12:13 Vancomycin/Ns 1 Gm/250 Ml IV 01/26/22 11:29 166.667 mls/hr Q48H YOSSI Administration Lansoprazole 30 mg 11/24/21 22:00 01/09/22 10:06 Lansoprazole 30 Mg Solutab FEEDTUBE 30 mg BID YOSSI Administration Levothyroxine Sodium 125 mcg 12/31/21 06:00 01/09/22 06:42 Levothyroxine 125 Mcg Tab FEEDTUBE 125 mcg DAILY@0600 [facility] Administration Melatonin 5 mg 12/05/21 22:00 01/08/22 22:55 Melatonin 5 Mg Tab PO 5 mg QHS YOSSI Administration Metoprolol Tartrate 6.25 mg 12/30/21 10:00 01/09/22 10:06 Metoprolol Tartrate 25 Mg Tab FEEDTUBE 6.25 mg BID YOSSI Administration Midodrine 5 mg 12/30/21 09:00 01/09/22 12:27 Midodrine 5 Mg Tab FEEDTUBE 5 mg TID@0800,1200,1600 [facility] Administration Multi-Ingred Cream/Lotion/Oil/Oint 1 applic 11/06/21 04:02 Mineral Oil/Petrolatum, White Ophth Oint 3.5 Gm OU Q4HR PRN Dry Eye(s) Ondansetron HCl 4 mg 12/05/21 10:00 01/07/22 06:28 Ondansetron 4 Mg/2 Ml Inj IV 4 mg Q8H PRN Administration Nausea And Vomiting Polyethylene Glycol 17 gm 12/30/21 10:00 01/09/22 10:08 Polyethylene Glycol 3350 17 Gm Powder FEEDTUBE Not Given QDAY [facility] Pravastatin Sodium 20 mg 12/30/21 22:00 01/09/22 07:06 Pravastatin 20 Mg Tab FEEDTUBE Not Given QHS [facility] Quetiapine Fumarate 25 mg 12/30/21 10:00 01/09/22 10:07 Quetiapine 25 Mg Tab FEEDTUBE 25 mg QAM YOSSI Administration Quetiapine Fumarate 50 mg 12/30/21 22:00 01/08/22 22:55 Quetiapine 25 Mg Tab FEEDTUBE 50 mg QHS [facility] Administration Senna 17.6 mg 12/29/21 11:00 01/09/22 10:08 Sennosides Oral Liqd 8.8 Mg/5 Ml Oral Liqd FEEDTUBE Not Given Q12HR YOSSI Simple Syrup 15 ml 11/08/21 11:09 Simple Syrup 15 Ml FEEDTUBE PRN PRN Hypoglycemia Simple Syrup 30 ml 11/08/21 11:09 Simple Syrup 15 Ml FEEDTUBE PRN PRN Hypoglycemia Sodium Bicarbonate 325 mg 11/08/21 11:09 Sodium Bicarbonate 325 Mg Tab FEEDTUBE PRN PRN For Clogged Feeding Tube Sodium Chloride 10 ml 11/04/21 10:00 01/09/22 10:08 Sodium Chloride 0.9% 10 Ml Flush Syringe IV 10 ml BID YOSSI Administration Sodium Chloride 10 ml 11/04/21 02:03 01/09/22 06:35 Sodium Chloride 0.9% 10 Ml Flush Syringe IV 10 ml PRN PRN Administration LINE FLUSH Spironolactone 25 mg 12/30/21 10:00 01/09/22 10:07 Spironolactone 25 Mg Tab FEEDTUBE 25 mg QDAY YOSSI Administration Sucralfate 1 gm 12/30/21 12:00 01/09/22 12:27 Sucralfate 1 Gm/10 Ml Oral Liqd FEEDTUBE 1 gm Q6HR YOSSI Administration Trazodone HCl 50 mg 12/04/21 22:00 01/08/22 22:55 Trazodone 50 Mg Tab PO 50 mg QHS YOSSI Administration Nutrition/Malnutrition Assess - Dietary Evaluation Nutrition/Malnutrition Findings: Nutrition Notes Start: 11/04/21 17 :16 Freq: Status: Active Protocol: Document 01/02/22 12:11 [facility] (Rec: 01/02/22 12:17 [place] [id number]) Nutrition Notes Initial or Follow up Reassessment Current Diagnosis Diabetes,Heart Failure, Respiratory Failure Other Pertinent Diagnosis Bacteremia, pneu, Bilat pleural effusion, Agitation/ anxiety Current Diet TF - Vital AF 1.2 at 45ml/hr Labs/Tests Na 131 K 3.5 BUN 27 Pertinent Medications 25% Human Albumin, Colace, Lasix, Reglan, Miralax, 40mEq KCl, Senokot, Sucralfate Height 5 ft Weight 73.3 kg [place] Body Weight (kg) 45.45 BMI 31.5 Weight change and time frame Current wt obtained from bed scale Weight Status Obese Subjective/Other Information Observed TF infusing at goal rate. Pt remains on vent support. Percent of energy/protein needs met: 100% energy 89% pro Burn Absent Trauma Absent #1 Nutrition Diagnosis Inadequate oral intake Diagnosis Progress(for reassessment Continues documentation) Is patient on ventilator? Yes Is Patient Ambulatory and/or Out of Bed No REE-([facility]-confined to bed) 1338.492 Kcal/Kg value to use for calculation 17 Approximate Energy Requirements Using 1246 kcal/Kg Calculation Used for Recommendations Kcal/kg Additional Notes Pro needs 2g/kg IBW: 91g/day Fluid needs per MD. Nutrition Intervention Nutrition Support: Continue Vital AF 1.2 at 45ml/ hr with 70ml water flush q4h. Kcal 1,296 Protein (gm) 81 Carbohydrates (gm) 119 Fat (gm) 58 Fluid (mL) 876 Fiber (gm) 6 Goal #1 TF tolerance Goal #2 TF to meet at least 75% energy and pro needs Follow-Up By: 01/09/22 Additional Comments F/U: stable TF, vent status, wt
--- NOTE | 2022-01-09 20:10 | Progress Note ---
Assessment and Plan 81-year-old female with known history of diabetes mellitus, hypertension and arthritis brought to the emergency room via EMS for shortness of breath which has been ongoing for the past 3 days prior to come to the emergency room. Patient has been having some cough and shortness of breath. According to patient's , patient has also been having a fever of about 102.2 F. Upon arrival of EMS patient was found to be tachypneic with O2 saturation of 76% on room air which later improved to 88% on nonrebreather. Work-up in the emergency room , chest x-ray shows bilateral interstitial pulmonary edema with bilateral pleural effusions.. Bibasilar opacities which favors atelectasis. Lab reveals leukocytosis of 29. Hemoglobin of 6.1. Patient received blood transfusion and also checked for COVID-19. Patient Ivy virus test reported negative. Patient intubated and placed on mechanical ventilation. Patient transfered to ICU. Patient undergone thoracentesis and chest tube placement. Patient still on mechanical ventilation. Patient transfered to [facility]. Patient sleeping. Patient is presently on pressure support ventilation, pressure support 15, FIO2 30%, PEEP 8 and O2 saturation running 99%. Continue spontaneous breathing trials. Patient afebrile. No leukocytosis.Blood pressure 156/70, Pulse 60 , respirations 20 Patients recent HGB 7.7 01/06/22 Chest xray 12/11/21 reported Diffuse bilateral pulmonary opacities most significant in the left lung and right upper lung .No pneumothorax. Chest xray done 01/01/22 reported Worsening bilateral pulmonary opacities and effusions Chest xray 01/05/22 reported Diffuse bilateral pleuroparenchymal opacities, right greater than left, are similar to the prior exam. No pneumothorax. Patient undergone thoracentesis under Ultrasound guidance. Repeat chest xray post thoracentesis 01/06/22 reported Near complete evacuation of the right pleural effusion. No pneumothorax. Patient is on Vancomycin, Prevacid and Sucralfate. Recommend SCDs. Patient is on tube feeding. I spent critical care time of 35 minutes, reviewing the chart, examine the patient, review lab results, chest xray and talk to respiratory therapy and nursing staff and work out plan of treatment in this critically ill patient. - Patient Problems (1) Acute respiratory failure with hypoxia Current Visit: Yes Status: Acute Plan to address problem: Mechanical ventilation, pressure support 15, FIO2 30%, PEEP 8 S/P tracheostomy. (2) Bilateral pneumonia Current Visit: Yes Status: Acute Plan to address problem: Patient is on vancomycin. (3) Occult blood positive stool Current Visit: Yes Status: Acute Plan to address problem: Management as per gastroenterology. (4) Acute anemia Current Visit: Yes Status: Acute Plan to address problem: Patient received blood transfusion. (5) Suspected COVID-19 virus infection Current Visit: Yes Status: Acute Plan to address problem: Ivy virus PCR negative. (6) Pleural effusion Current Visit: Yes Status: Acute Plan to address problem: Patient unergone right thoracentesis under ultrasound guidance. Post thoracentesis chest xray reported Near complete evacuation of the right pleural effusion. No pneumothorax. Pleural fluid results pending. Subjective Date of service: 01/09/22 Principal diagnosis: Septic shock; AHRF; Anemia; Pneumonia; pleural effusion; HFrEF; Pulm HTN Interval history: 81-year-old female with known history of diabetes mellitus, hypertension and a rthritis brought to the emergency room via EMS for shortness of breath which has been ongoing for the past 3 days prior to come to the emergency room. Patient has been having some cough and shortness of breath. According to patient's , patient has also been having a fever of about 102.2 F. Upon arrival of EMS patient was found to be tachypneic with O2 saturation of 76% on room air which later improved to 88% on nonrebreather. Work-up in the emergency room , chest x-ray shows bilateral interstitial pulmonary edema with bilateral pleural effusions.. Bibasilar opacities which favors atelectasis. Lab reveals leukocytosis of 29. Hemoglobin of 6.1. Patient received blood transfusion and also checked for COVID-19. Patient Ivy virus test reported negative. Patient intubated and placed on mechanical ventilation. Patient transfered to ICU. Patient undergone thoracentesis and chest tube placement. Patient still on mechanical ventilation. Patient transfered to [facility]. Patient sleeping. Patient is presently on pressure support ventilation, pressure support 15, FIO2 30%, PEEP 8 and O2 saturation running 99%. Continue spontaneous breathing trials. Patient afebrile. No leukocytosis.Blood pressure 156/70, Pulse 60 , respirations 20 Patients recent HGB 7.7 01/06/22 Chest xray 12/11/21 reported Diffuse bilateral pulmonary opacities most significant in the left lung and right upper lung .No pneumothorax. Chest xray done 01/01/22 reported Worsening bilateral pulmonary opacities and effusions Chest xray 01/05/22 reported Diffuse bilateral pleuroparenchymal opacities, right greater than left, are similar to the prior exam. No pneumothorax. Patient undergone thoracentesis under Ultrasound guidance. Repeat chest xray post thoracentesis 01/06/22 reported Near complete evacuation of the right pleural effusion. No pneumothorax. Patient is on Vancomycin, Prevacid and Sucralfate. Recommend SCDs. Patient is on tube feeding. Objective Vital Signs - 12hr 01/09/22 01/09/22 01/09/22 09:00 10:00 10:06 Temperature Pulse Rate 88 73 76 Pulse Rate [ From Monitor] Respiratory 37 H 22 Rate Blood Pressure 116/47 131/51 131/51 O2 Sat by Pulse 97 97 Oximetry O2 Sat by Pulse Oximetry [ Assessment] 01/09/22 01/09/22 01/09/22 10:07 11:00 12:00 Temperature 97.5 F L Pulse Rate 73 69 61 Pulse Rate [ 64 From Monitor] Respiratory 20 20 Rate Blood Pressure 131/51 127/51 121/49 O2 Sat by Pulse 97 97 Oximetry O2 Sat by Pulse Oximetry [ Assessment] 01/09/22 01/09/22 01/09/22 12:35 13:00 14:00 Temperature Pulse Rate 60 60 63 Pulse Rate [ From Monitor] Respiratory 17 16 13 Rate Blood Pressure 121/49 121/49 261/174 O2 Sat by Pulse 99 98 86 Oximetry O2 Sat by Pulse Oximetry [ Assessment] 01/09/22 01/09/22 01/09/22 15:00 15:43 15:47 Temperature Pulse Rate 61 61 Pulse Rate [ From Monitor] Respiratory 16 20 Rate Blood Pressure 137/60 137/60 O2 Sat by Pulse 100 97 Oximetry O2 Sat by Pulse 98 Oximetry [ Assessment] 01/09/22 01/09/22 01/09/22 16:00 17:00 18:00 Temperature 97.6 F Pulse Rate 60 65 74 Pulse Rate [ 66 From Monitor] Respiratory 17 15 23 Rate Blood Pressure 137/60 137/60 146/84 O2 Sat by Pulse 99 100 99 Oximetry O2 Sat by Pulse Oximetry [ Assessment] Constitutional: no acute distress, asleep, other (trach to MVS, frail elderly woman with mildly increased respiratory effort at rest on MVS) Eyes: non-icteric ENT: oropharynx moist, other (+ Midline tracheostomy with minimal non bloody secretions) Neck: supple, no lymphadenopathy, no JVD Effort: mildly labored Ascultation: Bilateral: diminished breath sounds, rhonchi Percussion: Bilateral: not dull, dull (bases) Cardiovascular: regular rate and rhythm, other (S1,S2) Gastrointestinal: normoactive bowel sounds, soft, non-tender, non-distended (protuberant) Integumentary: normal Extremities: no cyanosis, pink and warm, pulses normal, edema Neurologic: normal mental status, non-focal exam (grossly), pupils equal and round, motor strength normal and Psychiatric: mood appropriate, affect normal CBC and BMP: 01/06/22 04:06 01/06/22 04:06 ABG, PT/INR, D-dimer: ABG ABG pH 7.479 pH Units (7.350-7.450) H 12/16/21 20:52 ABG pCO2 37.5 mm Hg 12/16/21 20:52 ABG pO2 79.3 mm Hg (80.0-90.0) L 12/16/21 20:52 ABG O2 Saturation 97.0 % (95.0-99.0) 12/16/21 20:52 PT/INR, D-dimer PT 16.9 Sec. (12.2-14.9) H 01/06/22 04:06 INR 1.23 (0.87-1.13) H 01/06/22 04:06 D-Dimer 2655.00 ng/mlDDU (0-234) H 11/11/21 04:28 Abnormal lab findings: Abnormal Labs 11/03/21 11/03/21 11/03/21 22:32 22:32 22:32 WBC 29.3 H RBC 2.93 L Hgb 6.1 L Hct 21.9 L MCV 75 L MCH 21 L MCHC 28 L RDW 19.7 H Plt Count Seg Neuts % (Manual) 97.0 H Lymphocytes % (Manual) 3.0 L Seg Neutrophils # Man 28.4 H Lymphocytes # (Manual) 0.9 L Monocytes # (Manual) PT 18.6 H INR 1.40 H D-Dimer ABG pH ABG pO2 ABG HCO3 ABG O2 Saturation ABG Base Excess ABG Hemoglobin Oxyhemoglobin Sodium Potassium Chloride Carbon Dioxide 20 L BUN 33 H Creatinine Glucose 119 H POC Glucose Lactic Acid Calcium 8.3 L Phosphorus Magnesium AST ALT Alkaline Phosphatase Lactate Dehydrogenase Troponin T 0.035 H C-Reactive Protein NT-Pro-B Natriuret Pep Total Protein Albumin LDL Cholesterol Direct 34 L Vitamin B12 Fluid Glucose Fluid Total Protein Vancomycin Trough Crossmatch 11/03/21 11/03/21 11/03/21 22:32 22:32 23:57 WBC RBC Hgb Hct MCV MCH MCHC RDW Plt Count Seg Neuts % (Manual) Lymphocytes % (Manual) Seg Neutrophils # Man Lymphocytes # (Manual) Monocytes # (Manual) PT INR D-Dimer ABG pH ABG pO2 ABG HCO3 ABG O2 Saturation ABG Base Excess ABG Hemoglobin Oxyhemoglobin Sodium Potassium Chloride Carbon Dioxide BUN Creatinine Glucose POC Glucose Lactic Acid 3.70 H* Calcium Phosphorus Magnesium AST ALT Alkaline Phosphatase 139 H Lactate Dehydrogenase Troponin T C-Reactive Protein NT-Pro-B Natriuret Pep 7895 H Total Protein Albumin 3.5 L LDL Cholesterol Direct Vitamin B12 Fluid Glucose Fluid Total Protein Vancomycin Trough Crossmatch See Detail 11/04/21 11/04/21 11/05/21 00:59 13:58 00:51 WBC 27.9 H RBC 3.28 L Hgb 7.3 L Hct 25.5 L MCV 78 L MCH 22 L MCHC 29 L RDW 19.1 H Plt Count Seg Neuts % (Manual) 96.0 H Lymphocytes % (Manual) 2.0 L Seg Neutrophils # Man 26.8 H Lymphocytes # (Manual) 0.6 L Monocytes # (Manual) PT INR D-Dimer ABG pH ABG pO2 ABG HCO3 ABG O2 Saturation ABG Base Excess ABG Hemoglobin Oxyhemoglobin Sodium Potassium Chloride Carbon Dioxide BUN Creatinine Glucose POC Glucose Lactic Acid Calcium Phosphorus Magnesium AST ALT Alkaline Phosphatase Lactate Dehydrogenase Troponin T 0.051 H D 0.032 H D C-Reactive Protein NT-Pro-B Natriuret Pep Total Protein Albumin LDL Cholesterol Direct Vitamin B12 Fluid Glucose Fluid Total Protein Vancomycin Trough Crossmatch 11/05/21 11/05/21 11/05/21 06:11 06:11 06:11 WBC 31.8 H RBC 3.57 L Hgb 8.0 L Hct 27.7 L MCV 78 L MCH 22 L MCHC 29 L RDW 19.2 H Plt Count Seg Neuts % (Manual) 91.0 H Lymphocytes % (Manual) 4.5 L Seg Neutrophils # Man 28.9 H Lymphocytes # (Manual) Monocytes # (Manual) 1.1 H PT INR D-Dimer 1494.53 H ABG pH ABG pO2 ABG HCO3 ABG O2 Saturation ABG Base Excess ABG Hemoglobin Oxyhemoglobin Sodium Potassium Chloride Carbon Dioxide 19 L BUN 42 H Creatinine Glucose 115 H POC Glucose Lactic Acid Calcium Phosphorus Magnesium AST 43 H ALT Alkaline Phosphatase Lactate Dehydrogenase 187 H Troponin T C-Reactive Protein 22.20 H NT-Pro-B Natriuret Pep Total Protein 6.0 L Albumin 3.2 L LDL Cholesterol Direct Vitamin B12 Fluid Glucose Fluid Total Protein Vancomycin Trough Crossmatch 11/05/21 11/05/21 11/06/21 06:11 12:15 00:30 WBC RBC Hgb Hct MCV MCH MCHC RDW Plt Count Seg Neuts % (Manual) Lymphocytes % (Manual) Seg Neutrophils # Man Lymphocytes # (Manual) Monocytes # (Manual) PT INR D-Dimer ABG pH ABG pO2 ABG HCO3 ABG O2 Saturation ABG Base Excess ABG Hemoglobin Oxyhemoglobin Sodium Potassium Chloride Carbon Dioxide BUN Creatinine Glucose POC Glucose 113 H 69 L Lactic Acid Calcium Phosphorus Magnesium AST ALT Alkaline Phosphatase Lactate Dehydrogenase Troponin T 0.033 H C-Reactive Protein NT-Pro-B Natriuret Pep Total Protein Albumin LDL Cholesterol Direct Vitamin B12 Fluid Glucose Fluid Total Protein Vancomycin Trough Crossmatch 11/06/21 11/06/21 11/06/21 05:50 15:50 15:50 WBC 25.5 H RBC 3.62 L Hgb 8.0 L Hct 27.5 L MCV 76 L MCH 22 L MCHC 29 L RDW 19.6 H Plt Count Seg Neuts % (Manual) 92.0 H Lymphocytes % (Manual) 5.0 L Seg Neutrophils # Man 23.5 H Lymphocytes # (Manual) Monocytes # (Manual) PT INR D-Dimer ABG pH 7.305 L ABG pO2 ABG HCO3 15.8 L ABG O2 Saturation ABG Base Excess -9.6 L ABG Hemoglobin 8.6 L Oxyhemoglobin 94.6 L Sodium Potassium Chloride 113.9 H Carbon Dioxide 17 L BUN 56 H Creatinine Glucose 114 H POC Glucose Lactic Acid Calcium 7.9 L Phosphorus Magnesium AST 1410 H ALT 934 H Alkaline Phosphatase 142 H Lactate Dehydrogenase Troponin T C-Reactive Protein NT-Pro-B Natriuret Pep Total Protein 5.0 L Albumin 2.6 L LDL Cholesterol Direct Vitamin B12 Fluid Glucose Fluid Total Protein Vancomycin Trough Crossmatch 11/07/21 11/07/21 11/07/21 03:30 04:50 08:07 WBC RBC Hgb Hct MCV MCH MCHC RDW Plt Count Seg Neuts % (Manual) Lymphocytes % (Manual) Seg Neutrophils # Man Lymphocytes # (Manual) Monocytes # (Manual) PT INR D-Dimer ABG pH ABG pO2 296.9 H ABG HCO3 18.1 L ABG O2 Saturation 99.5 H ABG Base Excess -5.9 L ABG Hemoglobin 7.6 L Oxyhemoglobin Sodium Potassium Chloride Carbon Dioxide BUN Creatinine Glucose POC Glucose 106 H 108 H Lactic Acid Calcium Phosphorus Magnesium AST ALT Alkaline Phosphatase Lactate Dehydrogenase Troponin T C-Reactive Protein NT-Pro-B Natriuret Pep Total Protein Albumin LDL Cholesterol Direct Vitamin B12 Fluid Glucose Fluid Total Protein Vancomycin Trough Crossmatch 11/08/21 11/08/21 11/08/21 03:10 18:05 23:43 WBC RBC Hgb Hct MCV MCH MCHC RDW Plt Count Seg Neuts % (Manual) Lymphocytes % (Manual) Seg Neutrophils # Man Lymphocytes # (Manual) Monocytes # (Manual) PT INR D-Dimer ABG pH ABG pO2 127.4 H ABG HCO3 ABG O2 Saturation ABG Base Excess -3.4 L ABG Hemoglobin 7.4 L Oxyhemoglobin Sodium Potassium Chloride Carbon Dioxide BUN Creatinine Glucose POC Glucose 113 H 141 H Lactic Acid Calcium Phosphorus Magnesium AST ALT Alkaline Phosphatase Lactate Dehydrogenase Troponin T C-Reactive Protein NT-Pro-B Natriuret Pep Total Protein Albumin LDL Cholesterol Direct Vitamin B12 Fluid Glucose Fluid Total Protein Vancomycin Trough Crossmatch 11/08/21 11/08/21 11/09/21 Unknown Unknown 02:00 WBC 14.5 H RBC 3.35 L Hgb 7.5 L 8.1 L Hct 25.4 L 27.6 L MCV 76 L 76 L MCH 23 L 22 L MCHC RDW 19.9 H 19.9 H Plt Count Seg Neuts % (Manual) Lymphocytes % (Manual) Seg Neutrophils # Man Lymphocytes # (Manual) Monocytes # (Manual) PT INR D-Dimer ABG pH ABG pO2 ABG HCO3 ABG O2 Saturation ABG Base Excess ABG Hemoglobin Oxyhemoglobin Sodium 154 H D Potassium 3.3 L Chloride 120.7 H Carbon Dioxide 20 L BUN 38 H Creatinine Glucose POC Glucose Lactic Acid Calcium 8.3 L Phosphorus Magnesium AST ALT Alkaline Phosphatase Lactate Dehydrogenase Troponin T C-Reactive Protein NT-Pro-B Natriuret Pep Total Protein Albumin LDL Cholesterol Direct Vitamin B12 Fluid Glucose Fluid Total Protein Vancomycin Trough Crossmatch 11/09/21 11/09/21 11/09/21 02:00 02:31 05:12 WBC RBC Hgb Hct MCV MCH MCHC RDW Plt Count Seg Neuts % (Manual) Lymphocytes % (Manual) Seg Neutrophils # Man Lymphocytes # (Manual) Monocytes # (Manual) PT INR D-Dimer ABG pH 7.479 H ABG pO2 121.3 H ABG HCO3 ABG O2 Saturation ABG Base Excess ABG Hemoglobin 7.3 L Oxyhemoglobin Sodium Potassium Chloride 112.5 H Carbon Dioxide BUN 33 H Creatinine Glucose 161 H POC Glucose 135 H Lactic Acid Calcium Phosphorus Magnesium AST 251 H ALT 481 H Alkaline Phosphatase Lactate Dehydrogenase Troponin T C-Reactive Protein NT-Pro-B Natriuret Pep Total Protein 5.0 L Albumin 2.8 L LDL Cholesterol Direct Vitamin B12 Fluid Glucose Fluid Total Protein Vancomycin Trough Crossmatch 11/09/21 11/09/21 11/09/21 11:33 16:32 23:28 WBC RBC Hgb Hct MCV MCH MCHC RDW Plt Count Seg Neuts % (Manual) Lymphocytes % (Manual) Seg Neutrophils # Man Lymphocytes # (Manual) Monocytes # (Manual) PT INR D-Dimer ABG pH ABG pO2 ABG HCO3 ABG O2 Saturation ABG Base Excess ABG Hemoglobin Oxyhemoglobin Sodium Potassium Chloride Carbon Dioxide BUN Creatinine Glucose POC Glucose 132 H 133 H 143 H Lactic Acid Calcium Phosphorus Magnesium AST ALT Alkaline Phosphatase Lactate Dehydrogenase Troponin T C-Reactive Protein NT-Pro-B Natriuret Pep Total Protein Albumin LDL Cholesterol Direct Vitamin B12 Fluid Glucose Fluid Total Protein Vancomycin Trough Crossmatch 11/10/21 11/10/21 11/10/21 04:00 04:00 05:35 WBC 16.0 H RBC 3.61 L Hgb 8.0 L Hct 27.1 L MCV 75 L MCH 22 L MCHC RDW 20.4 H Plt Count Seg Neuts % (Manual) Lymphocytes % (Manual) Seg Neutrophils # Man Lymphocytes # (Manual) Monocytes # (Manual) PT INR D-Dimer ABG pH ABG pO2 ABG HCO3 ABG O2 Saturation ABG Base Excess ABG Hemoglobin Oxyhemoglobin Sodium 149 H Potassium Chloride 114.1 H Carbon Dioxide BUN 31 H Creatinine Glucose 148 H POC Glucose 132 H Lactic Acid Calcium 8.2 L Phosphorus Magnesium AST ALT Alkaline Phosphatase Lactate Dehydrogenase Troponin T C-Reactive Protein NT-Pro-B Natriuret Pep Total Protein Albumin LDL Cholesterol Direct Vitamin B12 Fluid Glucose Fluid Total Protein Vancomycin Trough Crossmatch 11/10/21 11/10/21 11/10/21 11:31 14:08 15:35 WBC RBC Hgb Hct MCV MCH MCHC RDW Plt Count Seg Neuts % (Manual) Lymphocytes % (Manual) Seg Neutrophils # Man Lymphocytes # (Manual) Monocytes # (Manual) PT INR D-Dimer ABG pH ABG pO2 126.6 H ABG HCO3 ABG O2 Saturation ABG Base Excess ABG Hemoglobin 7.4 L Oxyhemoglobin Sodium Potassium Chloride Carbon Dioxide BUN Creatinine Glucose POC Glucose 147 H Lactic Acid Calcium Phosphorus Magnesium AST ALT Alkaline Phosphatase Lactate Dehydrogenase Troponin T C-Reactive Protein NT-Pro-B Natriuret Pep Total Protein Albumin LDL Cholesterol Direct Vitamin B12 1823 H Fluid Glucose Fluid Total Protein Vancomycin Trough Crossmatch 11/10/21 11/11/21 11/11/21 17:53 00:55 04:28 WBC RBC Hgb Hct MCV MCH MCHC RDW Plt Count Seg Neuts % (Manual) Lymphocytes % (Manual) Seg Neutrophils # Man Lymphocytes # (Manual) Monocytes # (Manual) PT INR D-Dimer ABG pH ABG pO2 ABG HCO3 ABG O2 Saturation ABG Base Excess ABG Hemoglobin Oxyhemoglobin Sodium 149 H Potassium Chloride 112.2 H Carbon Dioxide BUN 34 H Creatinine Glucose 148 H POC Glucose 140 H 145 H Lactic Acid Calcium 7.9 L Phosphorus Magnesium AST 53 H ALT 203 H Alkaline Phosphatase Lactate Dehydrogenase Troponin T C-Reactive Protein NT-Pro-B Natriuret Pep Total Protein 4.9 L Albumin 2.6 L LDL Cholesterol Direct Vitamin B12 Fluid Glucose Fluid Total Protein Vancomycin Trough Crossmatch 11/11/21 11/11/21 11/11/21 04:28 04:28 05:28 WBC 20.9 H RBC 3.47 L Hgb 7.5 L Hct 26.0 L MCV 75 L MCH 22 L MCHC 29 L RDW 21.6 H Plt Count 132 L Seg Neuts % (Manual) Lymphocytes % (Manual) Seg Neutrophils # Man Lymphocytes # (Manual) Monocytes # (Manual) PT INR D-Dimer 2655.00 H ABG pH ABG pO2 ABG HCO3 ABG O2 Saturation ABG Base Excess ABG Hemoglobin Oxyhemoglobin Sodium Potassium Chloride Carbon Dioxide BUN Creatinine Glucose POC Glucose 154 H Lactic Acid Calcium Phosphorus Magnesium AST ALT Alkaline Phosphatase Lactate Dehydrogenase Troponin T C-Reactive Protein NT-Pro-B Natriuret Pep Total Protein Albumin LDL Cholesterol Direct Vitamin B12 Fluid Glucose Fluid Total Protein Vancomycin Trough Crossmatch 11/11/21 11/11/21 11/12/21 12:38 18:13 00:14 WBC RBC Hgb Hct MCV MCH MCHC RDW Plt Count Seg Neuts % (Manual) Lymphocytes % (Manual) Seg Neutrophils # Man Lymphocytes # (Manual) Monocytes # (Manual) PT INR D-Dimer ABG pH ABG pO2 ABG HCO3 ABG O2 Saturation ABG Base Excess ABG Hemoglobin Oxyhemoglobin Sodium Potassium Chloride Carbon Dioxide BUN Creatinine Glucose POC Glucose 137 H 108 H 137 H Lactic Acid Calcium Phosphorus Magnesium AST ALT Alkaline Phosphatase Lactate Dehydrogenase Troponin T C-Reactive Protein NT-Pro-B Natriuret Pep Total Protein Albumin LDL Cholesterol Direct Vitamin B12 Fluid Glucose Fluid Total Protein Vancomycin Trough Crossmatch 11/12/21 11/12/21 11/12/21 05:40 06:24 11:12 WBC RBC Hgb Hct MCV MCH MCHC RDW Plt Count Seg Neuts % (Manual) Lymphocytes % (Manual) Seg Neutrophils # Man Lymphocytes # (Manual) Monocytes # (Manual) PT INR D-Dimer ABG pH 7.586 H ABG pO2 150.6 H ABG HCO3 27.2 H ABG O2 Saturation 99.1 H ABG Base Excess 5.2 H ABG Hemoglobin 7.5 L Oxyhemoglobin Sodium Potassium Chloride Carbon Dioxide BUN Creatinine Glucose POC Glucose 132 H 140 H Lactic Acid Calcium Phosphorus Magnesium AST ALT Alkaline Phosphatase Lactate Dehydrogenase Troponin T C-Reactive Protein NT-Pro-B Natriuret Pep Total Protein Albumin LDL Cholesterol Direct Vitamin B12 Fluid Glucose Fluid Total Protein Vancomycin Trough Crossmatch 11/12/21 11/12/21 11/12/21 14:50 14:50 17:13 WBC 19.8 H RBC 3.27 L Hgb 7.1 L Hct 24.5 L MCV 75 L MCH 22 L MCHC 29 L RDW 22.3 H Plt Count Seg Neuts % (Manual) Lymphocytes % (Manual) Seg Neutrophils # Man Lymphocytes # (Manual) Monocytes # (Manual) PT INR D-Dimer ABG pH ABG pO2 ABG HCO3 ABG O2 Saturation ABG Base Excess ABG Hemoglobin Oxyhemoglobin Sodium 150 H Potassium 3.3 L Chloride 112.0 H Carbon Dioxide BUN 40 H Creatinine Glucose 151 H POC Glucose 121 H Lactic Acid Calcium 7.4 L Phosphorus 1.70 L Magnesium 1.40 L AST ALT Alkaline Phosphatase Lactate Dehydrogenase Troponin T C-Reactive Protein NT-Pro-B Natriuret Pep Total Protein Albumin LDL Cholesterol Direct Vitamin B12 Fluid Glucose Fluid Total Protein Vancomycin Trough Crossmatch 11/12/21 11/13/21 11/13/21 23:19 05:34 06:30 WBC RBC Hgb Hct MCV MCH MCHC RDW Plt Count Seg Neuts % (Manual) Lymphocytes % (Manual) Seg Neutrophils # Man Lymphocytes # (Manual) Monocytes # (Manual) PT INR D-Dimer ABG pH ABG pO2 ABG HCO3 ABG O2 Saturation ABG Base Excess ABG Hemoglobin Oxyhemoglobin Sodium 149 H Potassium Chloride 60.0 L Carbon Dioxide BUN 40 H Creatinine Glucose 146 H POC Glucose 113 H 132 H Lactic Acid Calcium 7.3 L Phosphorus Magnesium 2.40 H AST ALT 72 H Alkaline Phosphatase Lactate Dehydrogenase Troponin T C-Reactive Protein NT-Pro-B Natriuret Pep Total Protein 5.2 L Albumin 2.2 L LDL Cholesterol Direct Vitamin B12 Fluid Glucose Fluid Total Protein Vancomycin Trough Crossmatch 11/13/21 11/13/21 11/13/21 06:30 08:30 11:19 WBC 21.2 H RBC 3.12 L Hgb 6.8 L Hct 23.2 L MCV 74 L MCH 22 L MCHC 29 L RDW 22.2 H Plt Count 135 L Seg Neuts % (Manual) Lymphocytes % (Manual) Seg Neutrophils # Man Lymphocytes # (Manual) Monocytes # (Manual) PT INR D-Dimer ABG pH ABG pO2 ABG HCO3 ABG O2 Saturation ABG Base Excess ABG Hemoglobin Oxyhemoglobin Sodium Potassium Chloride Carbon Dioxide BUN Creatinine Glucose POC Glucose 136 H Lactic Acid Calcium Phosphorus Magnesium AST ALT Alkaline Phosphatase Lactate Dehydrogenase Troponin T C-Reactive Protein NT-Pro-B Natriuret Pep Total Protein Albumin LDL Cholesterol Direct Vitamin B12 Fluid Glucose Fluid Total Protein Vancomycin Trough Crossmatch See Detail 11/13/21 11/14/2122 18:21 00:01 04:46 WBC 20.0 H RBC 3.41 L Hgb 7.9 L Hct 26.8 L MCV MCH 23 L MCHC 29 L RDW 24.0 H Plt Count Seg Neuts % (Manual) Lymphocytes % (Manual) Seg Neutrophils # Man Lymphocytes # (Manual) Monocytes # (Manual) PT INR D-Dimer ABG pH ABG pO2 ABG HCO3 ABG O2 Saturation ABG Base Excess ABG Hemoglobin Oxyhemoglobin Sodium Potassium Chloride Carbon Dioxide BUN Creatinine Glucose POC Glucose 149 H 141 H Lactic Acid Calcium Phosphorus Magnesium AST ALT Alkaline Phosphatase Lactate Dehydrogenase Troponin T C-Reactive Protein NT-Pro-B Natriuret Pep Total Protein Albumin LDL Cholesterol Direct Vitamin B12 Fluid Glucose Fluid Total Protein Vancomycin Trough Crossmatch 11/14/21 11/14/21 11/14/21 04:46 05:10 11:10 WBC RBC Hgb Hct MCV MCH MCHC RDW Plt Count Seg Neuts % (Manual) Lymphocytes % (Manual) Seg Neutrophils # Man Lymphocytes # (Manual) Monocytes # (Manual) PT INR D-Dimer ABG pH ABG pO2 ABG HCO3 ABG O2 Saturation ABG Base Excess ABG Hemoglobin Oxyhemoglobin Sodium 148 H Potassium Chloride 113.1 H Carbon Dioxide BUN 43 H Creatinine Glucose 140 H POC Glucose 132 H 133 H Lactic Acid Calcium 7.5 L Phosphorus Magnesium AST ALT Alkaline Phosphatase Lactate Dehydrogenase Troponin T C-Reactive Protein NT-Pro-B Natriuret Pep Total Protein Albumin LDL Cholesterol Direct Vitamin B12 Fluid Glucose Fluid Total Protein Vancomycin Trough Crossmatch 11/14/21 11/14/21 11/14/21 16:14 17:48 23:23 WBC RBC Hgb Hct MCV MCH MCHC RDW Plt Count Seg Neuts % (Manual) Lymphocytes % (Manual) Seg Neutrophils # Man Lymphocytes # (Manual) Monocytes # (Manual) PT INR D-Dimer ABG pH ABG pO2 ABG HCO3 28.0 H ABG O2 Saturation ABG Base Excess 3.1 H ABG Hemoglobin 5.8 L Oxyhemoglobin 94.8 L Sodium Potassium Chloride Carbon Dioxide BUN Creatinine Glucose POC Glucose 130 H 136 H Lactic Acid Calcium Phosphorus Magnesium AST ALT Alkaline Phosphatase Lactate Dehydrogenase Troponin T C-Reactive Protein NT-Pro-B Natriuret Pep Total Protein Albumin LDL Cholesterol Direct Vitamin B12 Fluid Glucose Fluid Total Protein Vancomycin Trough Crossmatch 11/15/21 11/15/2111/15/22 05:20 05:50 05:50 WBC 19.9 H RBC 3.50 L Hgb 8.2 L Hct 27.9 L MCV MCH 23 L MCHC 29 L RDW 24.9 H Plt Count Seg Neuts % (Manual) Lymphocytes % (Manual) Seg Neutrophils # Man Lymphocytes # (Manual) Monocytes # (Manual) PT INR D-Dimer ABG pH ABG pO2 ABG HCO3 ABG O2 Saturation ABG Base Excess ABG Hemoglobin Oxyhemoglobin Sodium 149 H Potassium Chloride 112.0 H Carbon Dioxide BUN 48 H Creatinine Glucose 152 H POC Glucose 137 H Lactic Acid Calcium 7.9 L Phosphorus Magnesium AST ALT Alkaline Phosphatase Lactate Dehydrogenase Troponin T C-Reactive Protein NT-Pro-B Natriuret Pep Total Protein Albumin LDL Cholesterol Direct Vitamin B12 Fluid Glucose Fluid Total Protein Vancomycin Trough Crossmatch 11/15/21 11/15/21 11/15/21 12:12 17:07 23:24 WBC RBC Hgb Hct MCV MCH MCHC RDW Plt Count Seg Neuts % (Manual) Lymphocytes % (Manual) Seg Neutrophils # Man Lymphocytes # (Manual) Monocytes # (Manual) PT INR D-Dimer ABG pH ABG pO2 ABG HCO3 ABG O2 Saturation ABG Base Excess ABG Hemoglobin Oxyhemoglobin Sodium Potassium Chloride Carbon Dioxide BUN Creatinine Glucose POC Glucose 114 H 135 H 123 H Lactic Acid Calcium Phosphorus Magnesium AST ALT Alkaline Phosphatase Lactate Dehydrogenase Troponin T C-Reactive Protein NT-Pro-B Natriuret Pep Total Protein Albumin LDL Cholesterol Direct Vitamin B12 Fluid Glucose Fluid Total Protein Vancomycin Trough Crossmatch 11/16/21 11/16/21 11/16/21 05:21 10:00 10:00 WBC 21.7 H RBC 2.57 L Hgb 6.0 L Hct 20.2 L D MCV MCH 24 L MCHC RDW 26.3 H Plt Count Seg Neuts % (Manual) Lymphocytes % (Manual) Seg Neutrophils # Man Lymphocytes # (Manual) Monocytes # (Manual) PT INR D-Dimer ABG pH ABG pO2 ABG HCO3 ABG O2 Saturation ABG Base Excess ABG Hemoglobin Oxyhemoglobin Sodium 153 H Potassium Chloride 114.9 H Carbon Dioxide BUN 74 H Creatinine Glucose 155 H POC Glucose 127 H Lactic Acid Calcium 8.1 L Phosphorus Magnesium AST ALT Alkaline Phosphatase Lactate Dehydrogenase Troponin T C-Reactive Protein NT-Pro-B Natriuret Pep Total Protein Albumin LDL Cholesterol Direct Vitamin B12 Fluid Glucose Fluid Total Protein Vancomycin Trough Crossmatch 11/16/21 11/16/21 11/16/21 11:34 14:00 15:25 WBC 17.2 H RBC 2.08 L Hgb 4.7 L* Hct 16.2 L* MCV 78 L MCH 23 L MCHC 29 L RDW 26.0 H Plt Count Seg Neuts % (Manual) 87.0 H Lymphocytes % (Manual) 8.0 L Seg Neutrophils # Man 15.0 H Lymphocytes # (Manual) Monocytes # (Manual) 0.9 H PT INR D-Dimer ABG pH ABG pO2 ABG HCO3 ABG O2 Saturation ABG Base Excess ABG Hemoglobin Oxyhemoglobin Sodium Potassium Chloride Carbon Dioxide BUN Creatinine Glucose POC Glucose 131 H Lactic Acid Calcium Phosphorus Magnesium AST ALT Alkaline Phosphatase Lactate Dehydrogenase Troponin T C-Reactive Protein NT-Pro-B Natriuret Pep Total Protein Albumin LDL Cholesterol Direct Vitamin B12 Fluid Glucose Fluid Total Protein Vancomycin Trough Crossmatch See Detail 11/16/21 11/16/21 11/16/21 15:25 17:21 22:43 WBC RBC Hgb 8.6 L D Hct 27.7 L D MCV MCH MCHC RDW Plt Count Seg Neuts % (Manual) Lymphocytes % (Manual) Seg Neutrophils # Man Lymphocytes # (Manual) Monocytes # (Manual) PT INR D-Dimer ABG pH ABG pO2 ABG HCO3 ABG O2 Saturation ABG Base Excess ABG Hemoglobin Oxyhemoglobin Sodium 148 H Potassium Chloride 113.2 H Carbon Dioxide BUN 84 H Creatinine Glucose 164 H POC Glucose 124 H Lactic Acid Calcium 7.6 L Phosphorus Magnesium AST ALT Alkaline Phosphatase Lactate Dehydrogenase Troponin T C-Reactive Protein NT-Pro-B Natriuret Pep Total Protein Albumin LDL Cholesterol Direct Vitamin B12 Fluid Glucose Fluid Total Protein Vancomycin Trough Crossmatch 11/16/21 11/17/21 11/17/21 23:07 05:33 05:56 WBC 25.1 H RBC 3.47 L Hgb 8.7 L Hct 28.5 L MCV MCH 25 L MCHC RDW 22.3 H Plt Count Seg Neuts % (Manual) Lymphocytes % (Manual) Seg Neutrophils # Man Lymphocytes # (Manual) Monocytes # (Manual) PT INR D-Dimer ABG pH ABG pO2 ABG HCO3 ABG O2 Saturation ABG Base Excess ABG Hemoglobin Oxyhemoglobin Sodium Potassium Chloride Carbon Dioxide BUN Creatinine Glucose POC Glucose 128 H 133 H Lactic Acid Calcium Phosphorus Magnesium AST ALT Alkaline Phosphatase Lactate Dehydrogenase Troponin T C-Reactive Protein NT-Pro-B Natriuret Pep Total Protein Albumin LDL Cholesterol Direct Vitamin B12 Fluid Glucose Fluid Total Protein Vancomycin Trough Crossmatch 11/17/21 11/17/21 11/17/21 05:56 11:00 11:55 WBC RBC Hgb 8.3 L Hct 26.9 L MCV MCH MCHC RDW Plt Count Seg Neuts % (Manual) Lymphocytes % (Manual) Seg Neutrophils # Man Lymphocytes # (Manual) Monocytes # (Manual) PT INR D-Dimer ABG pH ABG pO2 ABG HCO3 ABG O2 Saturation ABG Base Excess ABG Hemoglobin Oxyhemoglobin Sodium 151 H Potassium Chloride 113.6 H Carbon Dioxide BUN 85 H Creatinine Glucose 132 H POC Glucose 121 H Lactic Acid Calcium 7.8 L Phosphorus Magnesium AST ALT Alkaline Phosphatase Lactate Dehydrogenase Troponin T C-Reactive Protein NT-Pro-B Natriuret Pep Total Protein 5.1 L Albumin 2.2 L LDL Cholesterol Direct Vitamin B12 Fluid Glucose Fluid Total Protein Vancomycin Trough Crossmatch 11/17/21 11/17/21 11/18/21 18:04 18:55 00:26 WBC RBC Hgb 7.5 L 7.1 L Hct 24.8 L 23.6 L MCV MCH MCHC RDW Plt Count Seg Neuts % (Manual) Lymphocytes % (Manual) Seg Neutrophils # Man Lymphocytes # (Manual) Monocytes # (Manual) PT INR D-Dimer ABG pH ABG pO2 ABG HCO3 ABG O2 Saturation ABG Base Excess ABG Hemoglobin Oxyhemoglobin Sodium Potassium Chloride Carbon Dioxide BUN Creatinine Glucose POC Glucose 144 H Lactic Acid Calcium Phosphorus Magnesium AST ALT Alkaline Phosphatase Lactate Dehydrogenase Troponin T C-Reactive Protein NT-Pro-B Natriuret Pep Total Protein Albumin LDL Cholesterol Direct Vitamin B12 Fluid Glucose Fluid Total Protein Vancomycin Trough Crossmatch 11/18/21 11/18/21 11/18/21 00:43 05:10 05:10 WBC 12.5 H RBC 2.39 L Hgb 6.1 L Hct 20.2 L MCV MCH 25 L MCHC RDW 23.2 H Plt Count Seg Neuts % (Manual) Lymphocytes % (Manual) Seg Neutrophils # Man Lymphocytes # (Manual) Monocytes # (Manual) PT INR D-Dimer ABG pH ABG pO2 ABG HCO3 ABG O2 Saturation ABG Base Excess ABG Hemoglobin Oxyhemoglobin Sodium 131 L D Potassium 2.9 L* D Chloride 97.8 L Carbon Dioxide BUN 58 H Creatinine Glucose 665 H* POC Glucose 139 H Lactic Acid Calcium 7.0 L Phosphorus 2.20 L D Magnesium 1.50 L AST ALT Alkaline Phosphatase Lactate Dehydrogenase Troponin T C-Reactive Protein NT-Pro-B Natriuret Pep Total Protein Albumin LDL Cholesterol Direct Vitamin B12 Fluid Glucose Fluid Total Protein Vancomycin Trough Crossmatch 11/18/21 11/18/21 11/18/21 05:23 07:10 10:45 WBC RBC Hgb Hct MCV MCH MCHC RDW Plt Count Seg Neuts % (Manual) Lymphocytes % (Manual) Seg Neutrophils # Man Lymphocytes # (Manual) Monocytes # (Manual) PT INR D-Dimer ABG pH ABG pO2 ABG HCO3 ABG O2 Saturation ABG Base Excess ABG Hemoglobin Oxyhemoglobin Sodium 148 H D Potassium 3.1 L Chloride 111.9 H Carbon Dioxide BUN 63 H Creatinine Glucose 141 H POC Glucose 124 H Lactic Acid Calcium 8.1 L D Phosphorus Magnesium AST ALT Alkaline Phosphatase Lactate Dehydrogenase Troponin T C-Reactive Protein NT-Pro-B Natriuret Pep Total Protein Albumin LDL Cholesterol Direct Vitamin B12 Fluid Glucose Fluid Total Protein Vancomycin Trough Crossmatch See Detail 11/18/21 11/19/21 11/19/21 11:57 00:19 04:55 WBC RBC 3.35 L Hgb 9.0 L 8.9 L Hct 28.3 L D 28.1 L MCV MCH 27 L MCHC RDW 20.3 H Plt Count Seg Neuts % (Manual) Lymphocytes % (Manual) Seg Neutrophils # Man Lymphocytes # (Manual) Monocytes # (Manual) PT INR D-Dimer ABG pH ABG pO2 ABG HCO3 ABG O2 Saturation ABG Base Excess ABG Hemoglobin Oxyhemoglobin Sodium Potassium Chloride Carbon Dioxide BUN Creatinine Glucose POC Glucose 119 H Lactic Acid Calcium Phosphorus Magnesium AST ALT Alkaline Phosphatase Lactate Dehydrogenase Troponin T C-Reactive Protein NT-Pro-B Natriuret Pep Total Protein Albumin LDL Cholesterol Direct Vitamin B12 Fluid Glucose Fluid Total Protein Vancomycin Trough Crossmatch 11/19/21 11/19/21 11/20/21 04:55 05:42 00:55 WBC RBC Hgb 9.0 L Hct 28.6 L MCV MCH MCHC RDW Plt Count Seg Neuts % (Manual) Lymphocytes % (Manual) Seg Neutrophils # Man Lymphocytes # (Manual) Monocytes # (Manual) PT INR D-Dimer ABG pH ABG pO2 ABG HCO3 ABG O2 Saturation ABG Base Excess ABG Hemoglobin Oxyhemoglobin Sodium Potassium 3.5 L Chloride 108.6 H Carbon Dioxide BUN 47 H Creatinine Glucose 207 H POC Glucose 63 L Lactic Acid Calcium 7.1 L Phosphorus Magnesium AST ALT Alkaline Phosphatase Lactate Dehydrogenase Troponin T C-Reactive Protein NT-Pro-B Natriuret Pep Total Protein Albumin LDL Cholesterol Direct Vitamin B12 Fluid Glucose Fluid Total Protein Vancomycin Trough Crossmatch 11/20/21 11/20/21 11/20/21 05:40 05:40 Unknown WBC RBC 3.40 L Hgb 9.1 L Hct 28.8 L MCV MCH 27 L MCHC RDW 20.7 H Plt Count Seg Neuts % (Manual) Lymphocytes % (Manual) Seg Neutrophils # Man Lymphocytes # (Manual) Monocytes # (Manual) PT INR D-Dimer ABG pH ABG pO2 ABG HCO3 ABG O2 Saturation ABG Base Excess -2.7 L ABG Hemoglobin 9.5 L Oxyhemoglobin 94.3 L Sodium Potassium 3.5 L Chloride 108.9 H Carbon Dioxide BUN 37 H Creatinine Glucose 117 H POC Glucose Lactic Acid Calcium 7.5 L Phosphorus Magnesium AST ALT Alkaline Phosphatase Lactate Dehydrogenase Troponin T C-Reactive Protein NT-Pro-B Natriuret Pep Total Protein Albumin LDL Cholesterol Direct Vitamin B12 Fluid Glucose Fluid Total Protein Vancomycin Trough Crossmatch 11/21/21 11/21/21 11/21/21 04:30 04:30 16:00 WBC RBC 3.25 L Hgb 8.6 L Hct 28.1 L MCV MCH 26 L MCHC RDW 20.7 H Plt Count Seg Neuts % (Manual) Lymphocytes % (Manual) Seg Neutrophils # Man Lymphocytes # (Manual) Monocytes # (Manual) PT INR D-Dimer ABG pH ABG pO2 114.2 H ABG HCO3 ABG O2 Saturation ABG Base Excess ABG Hemoglobin 9.1 L Oxyhemoglobin Sodium 134 L Potassium Chloride Carbon Dioxide 20 L BUN 34 H Creatinine Glucose POC Glucose Lactic Acid Calcium 7.1 L Phosphorus Magnesium AST ALT Alkaline Phosphatase Lactate Dehydrogenase Troponin T C-Reactive Protein NT-Pro-B Natriuret Pep Total Protein Albumin LDL Cholesterol Direct Vitamin B12 Fluid Glucose Fluid Total Protein Vancomycin Trough Crossmatch 11/22/21 11/22/21 11/22/21 07:07 07:07 23:54 WBC RBC 3.30 L Hgb 9.0 L Hct 28.5 L MCV MCH 27 L MCHC RDW 21.0 H Plt Count Seg Neuts % (Manual) Lymphocytes % (Manual) Seg Neutrophils # Man Lymphocytes # (Manual) Monocytes # (Manual) PT INR D-Dimer ABG pH ABG pO2 ABG HCO3 ABG O2 Saturation ABG Base Excess ABG Hemoglobin Oxyhemoglobin Sodium Potassium Chloride Carbon Dioxide BUN 32 H Creatinine Glucose 106 H POC Glucose 110 H Lactic Acid Calcium 7.5 L Phosphorus Magnesium AST ALT Alkaline Phosphatase Lactate Dehydrogenase Troponin T C-Reactive Protein NT-Pro-B Natriuret Pep Total Protein Albumin LDL Cholesterol Direct Vitamin B12 Fluid Glucose Fluid Total Protein Vancomycin Trough Crossmatch 11/23/21 11/23/21 11/23/21 04:38 04:38 06:01 WBC RBC 3.23 L Hgb 8.8 L Hct 28.0 L MCV MCH 27 L MCHC RDW 21.3 H Plt Count Seg Neuts % (Manual) Lymphocytes % (Manual) Seg Neutrophils # Man Lymphocytes # (Manual) Monocytes # (Manual) PT INR D-Dimer ABG pH ABG pO2 ABG HCO3 ABG O2 Saturation ABG Base Excess ABG Hemoglobin Oxyhemoglobin Sodium 136 L Potassium Chloride Carbon Dioxide 20 L BUN 32 H Creatinine Glucose 109 H POC Glucose 115 H Lactic Acid Calcium 7.7 L Phosphorus Magnesium AST ALT Alkaline Phosphatase Lactate Dehydrogenase Troponin T C-Reactive Protein NT-Pro-B Natriuret Pep Total Protein Albumin LDL Cholesterol Direct Vitamin B12 Fluid Glucose Fluid Total Protein Vancomycin Trough Crossmatch 11/23/21 11/24/21 11/24/21 11:40 00:03 04:13 WBC RBC 3.18 L Hgb 8.5 L Hct 27.5 L MCV MCH 27 L MCHC RDW 21.6 H Plt Count Seg Neuts % (Manual) Lymphocytes % (Manual) Seg Neutrophils # Man Lymphocytes # (Manual) Monocytes # (Manual) PT INR D-Dimer ABG pH ABG pO2 ABG HCO3 ABG O2 Saturation ABG Base Excess ABG Hemoglobin Oxyhemoglobin Sodium Potassium Chloride Carbon Dioxide BUN Creatinine Glucose POC Glucose 117 H 111 H Lactic Acid Calcium Phosphorus Magnesium AST ALT Alkaline Phosphatase Lactate Dehydrogenase Troponin T C-Reactive Protein NT-Pro-B Natriuret Pep Total Protein Albumin LDL Cholesterol Direct Vitamin B12 Fluid Glucose Fluid Total Protein Vancomycin Trough Crossmatch 11/24/21 11/24/21 11/24/21 04:13 05:30 11:10 WBC RBC Hgb Hct MCV MCH MCHC RDW Plt Count Seg Neuts % (Manual) Lymphocytes % (Manual) Seg Neutrophils # Man Lymphocytes # (Manual) Monocytes # (Manual) PT INR D-Dimer ABG pH ABG pO2 ABG HCO3 ABG O2 Saturation ABG Base Excess ABG Hemoglobin Oxyhemoglobin Sodium Potassium Chloride Carbon Dioxide BUN 31 H Creatinine Glucose 101 H POC Glucose 115 H 107 H Lactic Acid Calcium 7.7 L Phosphorus Magnesium AST ALT Alkaline Phosphatase Lactate Dehydrogenase Troponin T C-Reactive Protein NT-Pro-B Natriuret Pep Total Protein Albumin LDL Cholesterol Direct Vitamin B12 Fluid Glucose Fluid Total Protein Vancomycin Trough Crossmatch 11/24/21 11/24/21 11/25/21 16:34 17:57 05:12 WBC RBC 3.11 L Hgb 8.2 L Hct 26.6 L MCV MCH 26 L MCHC RDW 21.3 H Plt Count Seg Neuts % (Manual) Lymphocytes % (Manual) Seg Neutrophils # Man Lymphocytes # (Manual) Monocytes # (Manual) PT INR D-Dimer ABG pH ABG pO2 ABG HCO3 ABG O2 Saturation ABG Base Excess ABG Hemoglobin Oxyhemoglobin Sodium Potassium Chloride Carbon Dioxide BUN Creatinine Glucose POC Glucose 115 H 110 H Lactic Acid Calcium Phosphorus Magnesium AST ALT Alkaline Phosphatase Lactate Dehydrogenase Troponin T C-Reactive Protein NT-Pro-B Natriuret Pep Total Protein Albumin LDL Cholesterol Direct Vitamin B12 Fluid Glucose Fluid Total Protein Vancomycin Trough Crossmatch 11/25/21 11/25/21 11/26/21 05:12 11:20 05:00 WBC RBC 3.30 L Hgb 8.8 L Hct 28.2 L MCV MCH 27 L MCHC RDW 20.7 H Plt Count Seg Neuts % (Manual) Lymphocytes % (Manual) Seg Neutrophils # Man Lymphocytes # (Manual) Monocytes # (Manual) PT INR D-Dimer ABG pH ABG pO2 ABG HCO3 ABG O2 Saturation ABG Base Excess ABG Hemoglobin Oxyhemoglobin Sodium Potassium Chloride Carbon Dioxide BUN 32 H Creatinine Glucose 118 H POC Glucose 118 H Lactic Acid Calcium 8.2 L Phosphorus Magnesium AST ALT Alkaline Phosphatase Lactate Dehydrogenase Troponin T C-Reactive Protein NT-Pro-B Natriuret Pep Total Protein Albumin LDL Cholesterol Direct Vitamin B12 Fluid Glucose Fluid Total Protein Vancomycin Trough Crossmatch 11/26/21 11/26/21 11/26/21 05:00 05:00 05:44 WBC RBC Hgb Hct MCV MCH MCHC RDW Plt Count Seg Neuts % (Manual) Lymphocytes % (Manual) Seg Neutrophils # Man Lymphocytes # (Manual) Monocytes # (Manual) PT 16.9 H INR 1.24 H D-Dimer ABG pH ABG pO2 ABG HCO3 ABG O2 Saturation ABG Base Excess ABG Hemoglobin Oxyhemoglobin Sodium Potassium Chloride Carbon Dioxide BUN 31 H Creatinine Glucose 104 H POC Glucose 110 H Lactic Acid Calcium 7.9 L Phosphorus Magnesium AST ALT Alkaline Phosphatase Lactate Dehydrogenase Troponin T C-Reactive Protein NT-Pro-B Natriuret Pep Total Protein Albumin LDL Cholesterol Direct Vitamin B12 Fluid Glucose Fluid Total Protein Vancomycin Trough Crossmatch 11/26/21 11/27/21 11/27/21 23:55 07:40 07:40 WBC RBC 3.18 L Hgb 8.5 L Hct 27.0 L MCV MCH 27 L MCHC RDW 21.2 H Plt Count Seg Neuts % (Manual) Lymphocytes % (Manual) Seg Neutrophils # Man Lymphocytes # (Manual) Monocytes # (Manual) PT INR D-Dimer ABG pH ABG pO2 ABG HCO3 ABG O2 Saturation ABG Base Excess ABG Hemoglobin Oxyhemoglobin Sodium Potassium Chloride Carbon Dioxide BUN 27 H Creatinine Glucose 112 H POC Glucose 63 L Lactic Acid Calcium 7.6 L Phosphorus Magnesium AST ALT Alkaline Phosphatase Lactate Dehydrogenase Troponin T C-Reactive Protein NT-Pro-B Natriuret Pep Total Protein Albumin LDL Cholesterol Direct Vitamin B12 Fluid Glucose Fluid Total Protein Vancomycin Trough Crossmatch 11/27/21 11/27/21 11/27/21 12:04 13:40 13:40 WBC RBC 3.31 L Hgb 8.7 L Hct 28.0 L MCV MCH 26 L MCHC RDW 20.7 H Plt Count Seg Neuts % (Manual) Lymphocytes % (Manual) Seg Neutrophils # Man Lymphocytes # (Manual) Monocytes # (Manual) PT INR D-Dimer ABG pH ABG pO2 ABG HCO3 ABG O2 Saturation ABG Base Excess ABG Hemoglobin Oxyhemoglobin Sodium 136 L Potassium Chloride Carbon Dioxide BUN 25 H Creatinine Glucose 127 H POC Glucose 109 H Lactic Acid Calcium 7.6 L Phosphorus Magnesium 1.40 L AST ALT Alkaline Phosphatase Lactate Dehydrogenase Troponin T C-Reactive Protein NT-Pro-B Natriuret Pep Total Protein Albumin LDL Cholesterol Direct Vitamin B12 Fluid Glucose Fluid Total Protein Vancomycin Trough Crossmatch 11/27/21 11/27/21 11/28/21 17:44 23:33 12:20 WBC RBC Hgb Hct MCV MCH MCHC RDW Plt Count Seg Neuts % (Manual) Lymphocytes % (Manual) Seg Neutrophils # Man Lymphocytes # (Manual) Monocytes # (Manual) PT INR D-Dimer ABG pH ABG pO2 ABG HCO3 ABG O2 Saturation ABG Base Excess ABG Hemoglobin Oxyhemoglobin Sodium Potassium Chloride Carbon Dioxide BUN Creatinine Glucose POC Glucose 107 H 108 H 114 H Lactic Acid Calcium Phosphorus Magnesium AST ALT Alkaline Phosphatase Lactate Dehydrogenase Troponin T C-Reactive Protein NT-Pro-B Natriuret Pep Total Protein Albumin LDL Cholesterol Direct Vitamin B12 Fluid Glucose Fluid Total Protein Vancomycin Trough Crossmatch 11/29/21 11/29/21 11/29/21 00:09 03:20 03:20 WBC RBC 3.05 L Hgb 8.2 L Hct 25.8 L MCV MCH 27 L MCHC RDW 20.9 H Plt Count Seg Neuts % (Manual) Lymphocytes % (Manual) Seg Neutrophils # Man Lymphocytes # (Manual) Monocytes # (Manual) PT INR D-Dimer ABG pH ABG pO2 ABG HCO3 ABG O2 Saturation ABG Base Excess ABG Hemoglobin Oxyhemoglobin Sodium 133 L Potassium Chloride Carbon Dioxide BUN 24 H Creatinine Glucose 137 H POC Glucose 134 H Lactic Acid Calcium 7.4 L Phosphorus Magnesium AST ALT Alkaline Phosphatase Lactate Dehydrogenase Troponin T C-Reactive Protein NT-Pro-B Natriuret Pep Total Protein Albumin LDL Cholesterol Direct Vitamin B12 Fluid Glucose Fluid Total Protein Vancomycin Trough Crossmatch 11/29/21 11/29/21 11/29/21 05:38 11:39 17:11 WBC RBC Hgb Hct MCV MCH MCHC RDW Plt Count Seg Neuts % (Manual) Lymphocytes % (Manual) Seg Neutrophils # Man Lymphocytes # (Manual) Monocytes # (Manual) PT INR D-Dimer ABG pH ABG pO2 ABG HCO3 ABG O2 Saturation ABG Base Excess ABG Hemoglobin Oxyhemoglobin Sodium Potassium Chloride Carbon Dioxide BUN Creatinine Glucose POC Glucose 117 H 143 H 124 H Lactic Acid Calcium Phosphorus Magnesium AST ALT Alkaline Phosphatase Lactate Dehydrogenase Troponin T C-Reactive Protein NT-Pro-B Natriuret Pep Total Protein Albumin LDL Cholesterol Direct Vitamin B12 Fluid Glucose Fluid Total Protein Vancomycin Trough Crossmatch 11/29/21 11/30/21 11/30/21 20:15 05:40 05:40 WBC 12.6 H RBC 3.41 L Hgb 9.1 L Hct 28.9 L MCV MCH 27 L MCHC RDW 20.4 H Plt Count Seg Neuts % (Manual) Lymphocytes % (Manual) Seg Neutrophils # Man Lymphocytes # (Manual) Monocytes # (Manual) PT INR D-Dimer ABG pH ABG pO2 ABG HCO3 ABG O2 Saturation ABG Base Excess ABG Hemoglobin Oxyhemoglobin Sodium Potassium Chloride Carbon Dioxide BUN 24 H Creatinine Glucose 131 H POC Glucose Lactic Acid Calcium 7.6 L Phosphorus Magnesium AST ALT Alkaline Phosphatase Lactate Dehydrogenase Troponin T 0.045 H C-Reactive Protein NT-Pro-B Natriuret Pep Total Protein Albumin LDL Cholesterol Direct 25 L Vitamin B12 Fluid Glucose Fluid Total Protein Vancomycin Trough Crossmatch 11/30/21 11/30/21 12/01/21 11:29 16:51 05:00 WBC RBC 2.97 L Hgb 8.0 L Hct 25.0 L MCV MCH 27 L MCHC RDW 20.8 H Plt Count Seg Neuts % (Manual) Lymphocytes % (Manual) Seg Neutrophils # Man Lymphocytes # (Manual) Monocytes # (Manual) PT INR D-Dimer ABG pH ABG pO2 ABG HCO3 ABG O2 Saturation ABG Base Excess ABG Hemoglobin Oxyhemoglobin Sodium Potassium Chloride Carbon Dioxide BUN Creatinine Glucose POC Glucose 123 H 114 H Lactic Acid Calcium Phosphorus Magnesium AST ALT Alkaline Phosphatase Lactate Dehydrogenase Troponin T C-Reactive Protein NT-Pro-B Natriuret Pep Total Protein Albumin LDL Cholesterol Direct Vitamin B12 Fluid Glucose Fluid Total Protein Vancomycin Trough Crossmatch 12/01/21 12/01/21 12/01/21 05:00 05:25 11:54 WBC RBC Hgb Hct MCV MCH MCHC RDW Plt Count Seg Neuts % (Manual) Lymphocytes % (Manual) Seg Neutrophils # Man Lymphocytes # (Manual) Monocytes # (Manual) PT INR D-Dimer ABG pH ABG pO2 ABG HCO3 ABG O2 Saturation ABG Base Excess ABG Hemoglobin Oxyhemoglobin Sodium 136 L Potassium Chloride Carbon Dioxide BUN 24 H Creatinine Glucose 117 H POC Glucose 108 H 107 H Lactic Acid Calcium 7.5 L Phosphorus Magnesium 1.60 L AST ALT Alkaline Phosphatase Lactate Dehydrogenase Troponin T C-Reactive Protein NT-Pro-B Natriuret Pep Total Protein Albumin LDL Cholesterol Direct Vitamin B12 Fluid Glucose Fluid Total Protein Vancomycin Trough Crossmatch 12/01/21 12/02/21 12/02/21 17:40 00:07 04:20 WBC RBC 2.92 L Hgb 7.7 L Hct 24.3 L MCV MCH 26 L MCHC RDW 20.5 H Plt Count Seg Neuts % (Manual) Lymphocytes % (Manual) Seg Neutrophils # Man Lymphocytes # (Manual) Monocytes # (Manual) PT INR D-Dimer ABG pH ABG pO2 ABG HCO3 ABG O2 Saturation ABG Base Excess ABG Hemoglobin Oxyhemoglobin Sodium Potassium Chloride Carbon Dioxide BUN Creatinine Glucose POC Glucose 123 H 110 H Lactic Acid Calcium Phosphorus Magnesium AST ALT Alkaline Phosphatase Lactate Dehydrogenase Troponin T C-Reactive Protein NT-Pro-B Natriuret Pep Total Protein Albumin LDL Cholesterol Direct Vitamin B12 Fluid Glucose Fluid Total Protein Vancomycin Trough Crossmatch 12/02/21 12/02/21 12/02/21 04:20 11:17 18:20 WBC RBC Hgb Hct MCV MCH MCHC RDW Plt Count Seg Neuts % (Manual) Lymphocytes % (Manual) Seg Neutrophils # Man Lymphocytes # (Manual) Monocytes # (Manual) PT INR D-Dimer ABG pH ABG pO2 ABG HCO3 ABG O2 Saturation ABG Base Excess ABG Hemoglobin Oxyhemoglobin Sodium 135 L Potassium Chloride Carbon Dioxide BUN 26 H Creatinine Glucose 121 H POC Glucose 117 H 113 H Lactic Acid Calcium 7.4 L Phosphorus Magnesium AST ALT Alkaline Phosphatase Lactate Dehydrogenase Troponin T C-Reactive Protein NT-Pro-B Natriuret Pep Total Protein Albumin LDL Cholesterol Direct Vitamin B12 Fluid Glucose Fluid Total Protein Vancomycin Trough Crossmatch 12/03/21 12/03/21 12/03/21 00:12 04:00 04:00 WBC RBC 2.99 L Hgb 7.8 L Hct 24.6 L MCV MCH 26 L MCHC RDW 20.2 H Plt Count Seg Neuts % (Manual) Lymphocytes % (Manual) Seg Neutrophils # Man Lymphocytes # (Manual) Monocytes # (Manual) PT INR D-Dimer ABG pH ABG pO2 ABG HCO3 ABG O2 Saturation ABG Base Excess ABG Hemoglobin Oxyhemoglobin Sodium 136 L Potassium Chloride Carbon Dioxide BUN 27 H Creatinine Glucose 133 H POC Glucose 121 H Lactic Acid Calcium 7.5 L Phosphorus Magnesium AST ALT Alkaline Phosphatase Lactate Dehydrogenase Troponin T C-Reactive Protein NT-Pro-B Natriuret Pep Total Protein Albumin LDL Cholesterol Direct Vitamin B12 Fluid Glucose Fluid Total Protein Vancomycin Trough Crossmatch 12/03/21 12/03/2122 06:30 11:13 16:00 WBC RBC Hgb Hct MCV MCH MCHC RDW Plt Count Seg Neuts % (Manual) Lymphocytes % (Manual) Seg Neutrophils # Man Lymphocytes # (Manual) Monocytes # (Manual) PT INR D-Dimer ABG pH ABG pO2 ABG HCO3 ABG O2 Saturation ABG Base Excess ABG Hemoglobin Oxyhemoglobin Sodium Potassium Chloride Carbon Dioxide BUN Creatinine Glucose POC Glucose 129 H 125 H 125 H Lactic Acid Calcium Phosphorus Magnesium AST ALT Alkaline Phosphatase Lactate Dehydrogenase Troponin T C-Reactive Protein NT-Pro-B Natriuret Pep Total Protein Albumin LDL Cholesterol Direct Vitamin B12 Fluid Glucose Fluid Total Protein Vancomycin Trough Crossmatch 12/03/21 12/04/21 12/04/21 23:32 04:00 05:36 WBC RBC Hgb Hct MCV MCH MCHC RDW Plt Count Seg Neuts % (Manual) Lymphocytes % (Manual) Seg Neutrophils # Man Lymphocytes # (Manual) Monocytes # (Manual) PT INR D-Dimer ABG pH ABG pO2 ABG HCO3 ABG O2 Saturation ABG Base Excess ABG Hemoglobin Oxyhemoglobin Sodium Potassium 3.5 L Chloride Carbon Dioxide BUN 26 H Creatinine 0.5 L Glucose 151 H POC Glucose 133 H 142 H Lactic Acid Calcium 8.3 L Phosphorus Magnesium AST ALT Alkaline Phosphatase Lactate Dehydrogenase Troponin T C-Reactive Protein NT-Pro-B Natriuret Pep Total Protein Albumin LDL Cholesterol Direct Vitamin B12 Fluid Glucose Fluid Total Protein Vancomycin Trough Crossmatch 12/04/21 12/04/21 12/05/21 11:24 15:58 04:36 WBC RBC Hgb Hct MCV MCH MCHC RDW Plt Count Seg Neuts % (Manual) Lymphocytes % (Manual) Seg Neutrophils # Man Lymphocytes # (Manual) Monocytes # (Manual) PT INR D-Dimer ABG pH ABG pO2 ABG HCO3 ABG O2 Saturation ABG Base Excess ABG Hemoglobin Oxyhemoglobin Sodium Potassium Chloride Carbon Dioxide BUN 21 H Creatinine 0.5 L Glucose 119 H POC Glucose 130 H 111 H Lactic Acid Calcium 8.3 L Phosphorus Magnesium AST ALT Alkaline Phosphatase Lactate Dehydrogenase Troponin T C-Reactive Protein NT-Pro-B Natriuret Pep Total Protein Albumin LDL Cholesterol Direct Vitamin B12 Fluid Glucose Fluid Total Protein Vancomycin Trough Crossmatch 12/05/21 12/05/21 12/05/21 05:15 10:40 11:12 WBC RBC 2.98 L Hgb 8.1 L Hct 24.6 L MCV MCH 27 L MCHC RDW 20.8 H Plt Count Seg Neuts % (Manual) Lymphocytes % (Manual) Seg Neutrophils # Man Lymphocytes # (Manual) Monocytes # (Manual) PT INR D-Dimer ABG pH ABG pO2 ABG HCO3 ABG O2 Saturation ABG Base Excess ABG Hemoglobin Oxyhemoglobin Sodium Potassium Chloride Carbon Dioxide BUN Creatinine Glucose POC Glucose 107 H 110 H Lactic Acid Calcium Phosphorus Magnesium AST ALT Alkaline Phosphatase Lactate Dehydrogenase Troponin T C-Reactive Protein NT-Pro-B Natriuret Pep Total Protein Albumin LDL Cholesterol Direct Vitamin B12 Fluid Glucose Fluid Total Protein Vancomycin Trough Crossmatch 12/05/21 12/06/21 12/06/21 23:39 04:25 04:25 WBC RBC 2.95 L Hgb 7.9 L Hct 24.7 L MCV MCH 27 L MCHC RDW 20.9 H Plt Count Seg Neuts % (Manual) Lymphocytes % (Manual) Seg Neutrophils # Man Lymphocytes # (Manual) Monocytes # (Manual) PT INR D-Dimer ABG pH ABG pO2 ABG HCO3 ABG O2 Saturation ABG Base Excess ABG Hemoglobin Oxyhemoglobin Sodium Potassium Chloride Carbon Dioxide BUN 22 H Creatinine 0.5 L Glucose 136 H POC Glucose 118 H Lactic Acid Calcium 8.2 L Phosphorus Magnesium AST ALT Alkaline Phosphatase Lactate Dehydrogenase Troponin T C-Reactive Protein NT-Pro-B Natriuret Pep Total Protein Albumin LDL Cholesterol Direct Vitamin B12 Fluid Glucose Fluid Total Protein Vancomycin Trough Crossmatch 12/06/21 12/06/21 12/07/21 05:28 11:27 04:00 WBC RBC Hgb 7.2 L Hct 21.8 L MCV MCH MCHC RDW Plt Count Seg Neuts % (Manual) Lymphocytes % (Manual) Seg Neutrophils # Man Lymphocytes # (Manual) Monocytes # (Manual) PT INR D-Dimer ABG pH ABG pO2 ABG HCO3 ABG O2 Saturation ABG Base Excess ABG Hemoglobin Oxyhemoglobin Sodium Potassium Chloride Carbon Dioxide BUN Creatinine Glucose POC Glucose 142 H 126 H Lactic Acid Calcium Phosphorus Magnesium AST ALT Alkaline Phosphatase Lactate Dehydrogenase Troponin T C-Reactive Protein NT-Pro-B Natriuret Pep Total Protein Albumin LDL Cholesterol Direct Vitamin B12 Fluid Glucose Fluid Total Protein Vancomycin Trough Crossmatch 12/07/21 12/07/21 12/07/21 04:00 05:30 11:12 WBC RBC Hgb Hct MCV MCH MCHC RDW Plt Count Seg Neuts % (Manual) Lymphocytes % (Manual) Seg Neutrophils # Man Lymphocytes # (Manual) Monocytes # (Manual) PT INR D-Dimer ABG pH ABG pO2 ABG HCO3 ABG O2 Saturation ABG Base Excess ABG Hemoglobin Oxyhemoglobin Sodium Potassium Chloride Carbon Dioxide BUN 22 H Creatinine Glucose 119 H POC Glucose 121 H 124 H Lactic Acid Calcium 8.0 L Phosphorus Magnesium AST ALT Alkaline Phosphatase Lactate Dehydrogenase Troponin T C-Reactive Protein NT-Pro-B Natriuret Pep Total Protein Albumin LDL Cholesterol Direct Vitamin B12 Fluid Glucose Fluid Total Protein Vancomycin Trough Crossmatch 12/08/21 12/08/21 12/08/21 04:00 04:00 05:39 WBC RBC 2.81 L Hgb 7.7 L Hct 23.5 L MCV MCH MCHC RDW 21.2 H Plt Count Seg Neuts % (Manual) Lymphocytes % (Manual) Seg Neutrophils # Man Lymphocytes # (Manual) Monocytes # (Manual) PT INR D-Dimer ABG pH ABG pO2 ABG HCO3 ABG O2 Saturation ABG Base Excess ABG Hemoglobin Oxyhemoglobin Sodium 135 L Potassium Chloride Carbon Dioxide BUN 23 H Creatinine Glucose 109 H POC Glucose 112 H Lactic Acid Calcium Phosphorus Magnesium AST ALT Alkaline Phosphatase Lactate Dehydrogenase Troponin T C-Reactive Protein NT-Pro-B Natriuret Pep Total Protein Albumin LDL Cholesterol Direct Vitamin B12 Fluid Glucose Fluid Total Protein Vancomycin Trough Crossmatch 12/08/21 12/09/21 12/09/21 11:03 04:20 04:20 WBC RBC 2.67 L Hgb 7.6 L Hct 22.1 L MCV MCH MCHC RDW 20.8 H Plt Count Seg Neuts % (Manual) Lymphocytes % (Manual) Seg Neutrophils # Man Lymphocytes # (Manual) Monocytes # (Manual) PT INR D-Dimer ABG pH ABG pO2 ABG HCO3 ABG O2 Saturation ABG Base Excess ABG Hemoglobin Oxyhemoglobin Sodium 135 L Potassium Chloride 97.8 L Carbon Dioxide BUN 26 H Creatinine Glucose 119 H POC Glucose 108 H Lactic Acid Calcium 7.7 L Phosphorus Magnesium AST ALT Alkaline Phosphatase Lactate Dehydrogenase Troponin T C-Reactive Protein NT-Pro-B Natriuret Pep Total Protein Albumin LDL Cholesterol Direct Vitamin B12 Fluid Glucose Fluid Total Protein Vancomycin Trough Crossmatch 12/09/21 12/10/21 12/10/21 11:26 04:33 11:12 WBC RBC Hgb Hct MCV MCH MCHC RDW Plt Count Seg Neuts % (Manual) Lymphocytes % (Manual) Seg Neutrophils # Man Lymphocytes # (Manual) Monocytes # (Manual) PT INR D-Dimer ABG pH ABG pO2 ABG HCO3 ABG O2 Saturation ABG Base Excess ABG Hemoglobin Oxyhemoglobin Sodium 136 L Potassium Chloride Carbon Dioxide BUN 27 H Creatinine Glucose 117 H POC Glucose 110 H 117 H Lactic Acid Calcium 8.2 L Phosphorus Magnesium AST ALT Alkaline Phosphatase Lactate Dehydrogenase Troponin T C-Reactive Protein NT-Pro-B Natriuret Pep Total Protein Albumin LDL Cholesterol Direct Vitamin B12 Fluid Glucose Fluid Total Protein Vancomycin Trough Crossmatch 12/10/21 12/10/21 12/11/21 16:02 23:31 04:35 WBC RBC 2.57 L Hgb 7.0 L Hct 21.4 L MCV MCH 27 L MCHC RDW 21.1 H Plt Count Seg Neuts % (Manual) Lymphocytes % (Manual) Seg Neutrophils # Man Lymphocytes # (Manual) Monocytes # (Manual) PT INR D-Dimer ABG pH ABG pO2 ABG HCO3 ABG O2 Saturation ABG Base Excess ABG Hemoglobin Oxyhemoglobin Sodium Potassium Chloride Carbon Dioxide BUN Creatinine Glucose POC Glucose 137 H 111 H Lactic Acid Calcium Phosphorus Magnesium AST ALT Alkaline Phosphatase Lactate Dehydrogenase Troponin T C-Reactive Protein NT-Pro-B Natriuret Pep Total Protein Albumin LDL Cholesterol Direct Vitamin B12 Fluid Glucose Fluid Total Protein Vancomycin Trough Crossmatch 12/11/21 12/11/21 12/11/21 04:35 12:46 16:07 WBC RBC Hgb Hct MCV MCH MCHC RDW Plt Count Seg Neuts % (Manual) Lymphocytes % (Manual) Seg Neutrophils # Man Lymphocytes # (Manual) Monocytes # (Manual) PT INR D-Dimer ABG pH ABG pO2 ABG HCO3 ABG O2 Saturation ABG Base Excess ABG Hemoglobin Oxyhemoglobin Sodium 136 L Potassium Chloride Carbon Dioxide BUN 27 H Creatinine Glucose 112 H POC Glucose 115 H 111 H Lactic Acid Calcium 7.6 L Phosphorus Magnesium AST ALT Alkaline Phosphatase Lactate Dehydrogenase Troponin T C-Reactive Protein NT-Pro-B Natriuret Pep Total Protein Albumin LDL Cholesterol Direct Vitamin B12 Fluid Glucose Fluid Total Protein Vancomycin Trough Crossmatch 12/11/21 12/12/21 12/12/21 23:42 04:30 04:30 WBC RBC 2.60 L Hgb 7.1 L Hct 21.5 L MCV MCH 27 L MCHC RDW 20.3 H Plt Count Seg Neuts % (Manual) Lymphocytes % (Manual) Seg Neutrophils # Man Lymphocytes # (Manual) Monocytes # (Manual) PT INR D-Dimer ABG pH ABG pO2 ABG HCO3 ABG O2 Saturation ABG Base Excess ABG Hemoglobin Oxyhemoglobin Sodium 135 L Potassium Chloride 97.9 L Carbon Dioxide BUN 26 H Creatinine 0.5 L Glucose 138 H POC Glucose 115 H Lactic Acid Calcium 8.2 L Phosphorus Magnesium AST ALT Alkaline Phosphatase Lactate Dehydrogenase Troponin T C-Reactive Protein NT-Pro-B Natriuret Pep Total Protein Albumin LDL Cholesterol Direct Vitamin B12 Fluid Glucose Fluid Total Protein Vancomycin Trough Crossmatch 12/12/21 12/12/21 12/12/21 04:30 05:10 11:51 WBC RBC Hgb Hct MCV MCH MCHC RDW Plt Count Seg Neuts % (Manual) Lymphocytes % (Manual) Seg Neutrophils # Man Lymphocytes # (Manual) Monocytes # (Manual) PT INR D-Dimer ABG pH ABG pO2 ABG HCO3 ABG O2 Saturation ABG Base Excess ABG Hemoglobin Oxyhemoglobin Sodium Potassium Chloride Carbon Dioxide BUN Creatinine Glucose POC Glucose 119 H 119 H Lactic Acid Calcium Phosphorus Magnesium AST ALT Alkaline Phosphatase Lactate Dehydrogenase Troponin T C-Reactive Protein NT-Pro-B Natriuret Pep Total Protein Albumin LDL Cholesterol Direct Vitamin B12 Fluid Glucose Fluid Total Protein Vancomycin Trough Crossmatch See Detail 12/13/21 12/13/21 12/13/21 00:52 04:00 04:00 WBC RBC 2.73 L Hgb 7.4 L Hct 22.8 L MCV MCH 27 L MCHC RDW 20.5 H Plt Count Seg Neuts % (Manual) Lymphocytes % (Manual) Seg Neutrophils # Man Lymphocytes # (Manual) Monocytes # (Manual) PT INR D-Dimer ABG pH ABG pO2 ABG HCO3 ABG O2 Saturation ABG Base Excess ABG Hemoglobin Oxyhemoglobin Sodium 134 L Potassium Chloride 96.7 L Carbon Dioxide BUN 23 H Creatinine 0.5 L Glucose 131 H POC Glucose 131 H Lactic Acid Calcium 8.1 L Phosphorus Magnesium AST ALT Alkaline Phosphatase Lactate Dehydrogenase Troponin T C-Reactive Protein NT-Pro-B Natriuret Pep Total Protein Albumin LDL Cholesterol Direct Vitamin B12 Fluid Glucose Fluid Total Protein Vancomycin Trough Crossmatch 12/13/21 12/13/21 12/13/21 05:23 12:11 17:18 WBC RBC Hgb Hct MCV MCH MCHC RDW Plt Count Seg Neuts % (Manual) Lymphocytes % (Manual) Seg Neutrophils # Man Lymphocytes # (Manual) Monocytes # (Manual) PT INR D-Dimer ABG pH ABG pO2 ABG HCO3 ABG O2 Saturation ABG Base Excess ABG Hemoglobin Oxyhemoglobin Sodium Potassium Chloride Carbon Dioxide BUN Creatinine Glucose POC Glucose 121 H 143 H 148 H Lactic Acid Calcium Phosphorus Magnesium AST ALT Alkaline Phosphatase Lactate Dehydrogenase Troponin T C-Reactive Protein NT-Pro-B Natriuret Pep Total Protein Albumin LDL Cholesterol Direct Vitamin B12 Fluid Glucose Fluid Total Protein Vancomycin Trough Crossmatch 12/14/21 12/14/21 12/14/21 00:54 04:20 04:20 WBC RBC 2.39 L Hgb 6.5 L Hct 20.3 L MCV MCH 27 L MCHC RDW 20.3 H Plt Count Seg Neuts % (Manual) Lymphocytes % (Manual) Seg Neutrophils # Man Lymphocytes # (Manual) Monocytes # (Manual) PT INR D-Dimer ABG pH ABG pO2 ABG HCO3 ABG O2 Saturation ABG Base Excess ABG Hemoglobin Oxyhemoglobin Sodium 130 L Potassium Chloride 93.5 L Carbon Dioxide BUN 25 H Creatinine Glucose 123 H POC Glucose 123 H Lactic Acid Calcium 8.0 L Phosphorus Magnesium AST ALT Alkaline Phosphatase Lactate Dehydrogenase Troponin T C-Reactive Protein NT-Pro-B Natriuret Pep Total Protein Albumin LDL Cholesterol Direct Vitamin B12 Fluid Glucose Fluid Total Protein Vancomycin Trough Crossmatch 12/14/21 12/14/21 12/14/21 05:06 08:17 10:30 WBC RBC Hgb Hct MCV MCH MCHC RDW Plt Count Seg Neuts % (Manual) Lymphocytes % (Manual) Seg Neutrophils # Man Lymphocytes # (Manual) Monocytes # (Manual) PT INR D-Dimer ABG pH ABG pO2 ABG HCO3 ABG O2 Saturation ABG Base Excess ABG Hemoglobin Oxyhemoglobin Sodium Potassium Chloride Carbon Dioxide BUN Creatinine Glucose POC Glucose 131 H 119 H Lactic Acid Calcium Phosphorus Magnesium AST ALT Alkaline Phosphatase Lactate Dehydrogenase Troponin T C-Reactive Protein NT-Pro-B Natriuret Pep Total Protein Albumin LDL Cholesterol Direct Vitamin B12 Fluid Glucose Fluid Total Protein Vancomycin Trough Crossmatch See Detail 12/14/21 12/14/21 12/14/21 12:15 16:37 23:27 WBC RBC Hgb Hct MCV MCH MCHC RDW Plt Count Seg Neuts % (Manual) Lymphocytes % (Manual) Seg Neutrophils # Man Lymphocytes # (Manual) Monocytes # (Manual) PT INR D-Dimer ABG pH ABG pO2 ABG HCO3 ABG O2 Saturation ABG Base Excess ABG Hemoglobin Oxyhemoglobin Sodium Potassium Chloride Carbon Dioxide BUN Creatinine Glucose POC Glucose 147 H 141 H 130 H Lactic Acid Calcium Phosphorus Magnesium AST ALT Alkaline Phosphatase Lactate Dehydrogenase Troponin T C-Reactive Protein NT-Pro-B Natriuret Pep Total Protein Albumin LDL Cholesterol Direct Vitamin B12 Fluid Glucose Fluid Total Protein Vancomycin Trough Crossmatch 12/15/21 12/15/21 12/15/21 05:00 07:00 07:00 WBC 12.3 H RBC 3.27 L Hgb 8.8 L Hct 27.5 L D MCV MCH 27 L MCHC RDW 19.0 H Plt Count Seg Neuts % (Manual) Lymphocytes % (Manual) Seg Neutrophils # Man Lymphocytes # (Manual) Monocytes # (Manual) PT INR D-Dimer ABG pH ABG pO2 ABG HCO3 ABG O2 Saturation ABG Base Excess ABG Hemoglobin Oxyhemoglobin Sodium 134 L Potassium Chloride 95.7 L Carbon Dioxide BUN 28 H Creatinine Glucose 129 H POC Glucose 129 H Lactic Acid Calcium 8.2 L Phosphorus Magnesium AST ALT Alkaline Phosphatase Lactate Dehydrogenase Troponin T C-Reactive Protein NT-Pro-B Natriuret Pep Total Protein Albumin LDL Cholesterol Direct Vitamin B12 Fluid Glucose Fluid Total Protein Vancomycin Trough Crossmatch 12/15/21 12/15/21 12/15/21 11:18 16:00 23:39 WBC RBC Hgb Hct MCV MCH MCHC RDW Plt Count Seg Neuts % (Manual) Lymphocytes % (Manual) Seg Neutrophils # Man Lymphocytes # (Manual) Monocytes # (Manual) PT INR D-Dimer ABG pH ABG pO2 ABG HCO3 ABG O2 Saturation ABG Base Excess ABG Hemoglobin Oxyhemoglobin Sodium Potassium Chloride Carbon Dioxide BUN Creatinine Glucose POC Glucose 139 H 137 H 146 H Lactic Acid Calcium Phosphorus Magnesium AST ALT Alkaline Phosphatase Lactate Dehydrogenase Troponin T C-Reactive Protein NT-Pro-B Natriuret Pep Total Protein Albumin LDL Cholesterol Direct Vitamin B12 Fluid Glucose Fluid Total Protein Vancomycin Trough Crossmatch 12/16/21 12/16/21 12/16/21 05:24 10:21 10:21 WBC 15.3 H RBC 3.24 L Hgb 8.9 L Hct 27.7 L MCV MCH MCHC RDW 19.0 H Plt Count Seg Neuts % (Manual) Lymphocytes % (Manual) Seg Neutrophils # Man Lymphocytes # (Manual) Monocytes # (Manual) PT INR D-Dimer ABG pH ABG pO2 ABG HCO3 ABG O2 Saturation ABG Base Excess ABG Hemoglobin Oxyhemoglobin Sodium 131 L Potassium 3.5 L Chloride 92.7 L Carbon Dioxide BUN 36 H Creatinine Glucose 160 H POC Glucose 121 H Lactic Acid Calcium Phosphorus Magnesium 1.60 L AST ALT Alkaline Phosphatase Lactate Dehydrogenase Troponin T C-Reactive Protein NT-Pro-B Natriuret Pep Total Protein Albumin LDL Cholesterol Direct Vitamin B12 Fluid Glucose Fluid Total Protein Vancomycin Trough Crossmatch 12/16/21 12/16/21 12/16/21 11:21 18:28 20:52 WBC RBC Hgb Hct MCV MCH MCHC RDW Plt Count Seg Neuts % (Manual) Lymphocytes % (Manual) Seg Neutrophils # Man Lymphocytes # (Manual) Monocytes # (Manual) PT INR D-Dimer ABG pH 7.479 H ABG pO2 79.3 L ABG HCO3 27.3 H ABG O2 Saturation ABG Base Excess 3.6 H ABG Hemoglobin 9.1 L Oxyhemoglobin 94.9 L Sodium Potassium Chloride Carbon Dioxide BUN Creatinine Glucose POC Glucose 153 H 132 H Lactic Acid Calcium Phosphorus Magnesium AST ALT Alkaline Phosphatase Lactate Dehydrogenase Troponin T C-Reactive Protein NT-Pro-B Natriuret Pep Total Protein Albumin LDL Cholesterol Direct Vitamin B12 Fluid Glucose Fluid Total Protein Vancomycin Trough Crossmatch 12/16/21 12/17/21 12/17/21 23:30 04:25 04:25 WBC 12.3 H RBC 2.16 L Hgb 6.0 L Hct 18.1 L* D MCV MCH MCHC RDW 19.4 H Plt Count Seg Neuts % (Manual) Lymphocytes % (Manual) Seg Neutrophils # Man Lymphocytes # (Manual) Monocytes # (Manual) PT INR D-Dimer ABG pH ABG pO2 ABG HCO3 ABG O2 Saturation ABG Base Excess ABG Hemoglobin Oxyhemoglobin Sodium 132 L Potassium 3.2 L Chloride 112.0 H Carbon Dioxide BUN 32 H Creatinine Glucose 122 H POC Glucose 137 H Lactic Acid Calcium 6.8 L D Phosphorus Magnesium AST ALT Alkaline Phosphatase Lactate Dehydrogenase Troponin T C-Reactive Protein NT-Pro-B Natriuret Pep Total Protein Albumin LDL Cholesterol Direct Vitamin B12 Fluid Glucose Fluid Total Protein Vancomycin Trough Crossmatch 12/17/21 12/17/21 12/17/21 05:30 11:49 14:45 WBC RBC Hgb 9.7 L D Hct MCV MCH MCHC RDW Plt Count Seg Neuts % (Manual) Lymphocytes % (Manual) Seg Neutrophils # Man Lymphocytes # (Manual) Monocytes # (Manual) PT INR D-Dimer ABG pH ABG pO2 ABG HCO3 ABG O2 Saturation ABG Base Excess ABG Hemoglobin Oxyhemoglobin Sodium Potassium Chloride Carbon Dioxide BUN Creatinine Glucose POC Glucose 137 H 143 H Lactic Acid Calcium Phosphorus Magnesium AST ALT Alkaline Phosphatase Lactate Dehydrogenase Troponin T C-Reactive Protein NT-Pro-B Natriuret Pep Total Protein Albumin LDL Cholesterol Direct Vitamin B12 Fluid Glucose Fluid Total Protein Vancomycin Trough Crossmatch 12/17/21 12/18/21 12/18/21 17:01 05:04 05:04 WBC 13.8 H RBC 3.44 L Hgb 9.9 L Hct 28.8 L MCV MCH MCHC RDW 18.1 H Plt Count Seg Neuts % (Manual) Lymphocytes % (Manual) Seg Neutrophils # Man Lymphocytes # (Manual) Monocytes # (Manual) PT INR D-Dimer ABG pH ABG pO2 ABG HCO3 ABG O2 Saturation ABG Base Excess ABG Hemoglobin Oxyhemoglobin Sodium 132 L Potassium Chloride 97.4 L Carbon Dioxide BUN 38 H Creatinine Glucose 134 H POC Glucose 132 H Lactic Acid Calcium Phosphorus Magnesium AST ALT Alkaline Phosphatase Lactate Dehydrogenase Troponin T C-Reactive Protein NT-Pro-B Natriuret Pep Total Protein Albumin LDL Cholesterol Direct Vitamin B12 Fluid Glucose Fluid Total Protein Vancomycin Trough Crossmatch 12/18/21 12/18/21 12/18/21 05:28 10:57 16:27 WBC RBC Hgb Hct MCV MCH MCHC RDW Plt Count Seg Neuts % (Manual) Lymphocytes % (Manual) Seg Neutrophils # Man Lymphocytes # (Manual) Monocytes # (Manual) PT INR D-Dimer ABG pH ABG pO2 ABG HCO3 ABG O2 Saturation ABG Base Excess ABG Hemoglobin Oxyhemoglobin Sodium Potassium Chloride Carbon Dioxide BUN Creatinine Glucose POC Glucose 118 H 132 H 130 H Lactic Acid Calcium Phosphorus Magnesium AST ALT Alkaline Phosphatase Lactate Dehydrogenase Troponin T C-Reactive Protein NT-Pro-B Natriuret Pep Total Protein Albumin LDL Cholesterol Direct Vitamin B12 Fluid Glucose Fluid Total Protein Vancomycin Trough Crossmatch 12/19/21 12/19/21 12/19/21 00:02 04:41 04:41 WBC 16.0 H RBC 3.45 L Hgb 9.7 L Hct 29.1 L MCV MCH MCHC RDW 17.8 H Plt Count Seg Neuts % (Manual) Lymphocytes % (Manual) Seg Neutrophils # Man Lymphocytes # (Manual) Monocytes # (Manual) PT INR D-Dimer ABG pH ABG pO2 ABG HCO3 ABG O2 Saturation ABG Base Excess ABG Hemoglobin Oxyhemoglobin Sodium 133 L Potassium Chloride 97.9 L Carbon Dioxide BUN 36 H Creatinine 0.5 L Glucose 126 H POC Glucose 127 H Lactic Acid Calcium 8.3 L Phosphorus Magnesium AST ALT Alkaline Phosphatase Lactate Dehydrogenase Troponin T C-Reactive Protein NT-Pro-B Natriuret Pep Total Protein Albumin LDL Cholesterol Direct Vitamin B12 Fluid Glucose Fluid Total Protein Vancomycin Trough Crossmatch 12/19/21 12/19/21 12/19/21 05:26 12:20 16:43 WBC RBC Hgb Hct MCV MCH MCHC RDW Plt Count Seg Neuts % (Manual) Lymphocytes % (Manual) Seg Neutrophils # Man Lymphocytes # (Manual) Monocytes # (Manual) PT INR D-Dimer ABG pH ABG pO2 ABG HCO3 ABG O2 Saturation ABG Base Excess ABG Hemoglobin Oxyhemoglobin Sodium Potassium Chloride Carbon Dioxide BUN Creatinine Glucose POC Glucose 119 H 145 H 126 H Lactic Acid Calcium Phosphorus Magnesium AST ALT Alkaline Phosphatase Lactate Dehydrogenase Troponin T C-Reactive Protein NT-Pro-B Natriuret Pep Total Protein Albumin LDL Cholesterol Direct Vitamin B12 Fluid Glucose Fluid Total Protein Vancomycin Trough Crossmatch 12/19/21 12/20/21 12/20/21 23:30 04:54 04:54 WBC 12.3 H RBC 3.54 L Hgb 10.0 L Hct 29.5 L MCV MCH MCHC RDW 17.8 H Plt Count Seg Neuts % (Manual) 88.0 H Lymphocytes % (Manual) 6.0 L Seg Neutrophils # Man 10.8 H Lymphocytes # (Manual) 0.7 L Monocytes # (Manual) PT INR D-Dimer ABG pH ABG pO2 ABG HCO3 ABG O2 Saturation ABG Base Excess ABG Hemoglobin Oxyhemoglobin Sodium 131 L Potassium Chloride 96.2 L Carbon Dioxide BUN 36 H Creatinine 0.5 L Glucose 130 H POC Glucose 117 H Lactic Acid Calcium Phosphorus Magnesium AST ALT Alkaline Phosphatase Lactate Dehydrogenase Troponin T C-Reactive Protein NT-Pro-B Natriuret Pep Total Protein Albumin LDL Cholesterol Direct Vitamin B12 Fluid Glucose Fluid Total Protein Vancomycin Trough Crossmatch 12/20/21 12/20/21 12/20/21 05:20 11:51 17:30 WBC RBC Hgb Hct MCV MCH MCHC RDW Plt Count Seg Neuts % (Manual) Lymphocytes % (Manual) Seg Neutrophils # Man Lymphocytes # (Manual) Monocytes # (Manual) PT INR D-Dimer ABG pH ABG pO2 ABG HCO3 ABG O2 Saturation ABG Base Excess ABG Hemoglobin Oxyhemoglobin Sodium Potassium Chloride Carbon Dioxide BUN Creatinine Glucose POC Glucose 126 H 119 H 127 H Lactic Acid Calcium Phosphorus Magnesium AST ALT Alkaline Phosphatase Lactate Dehydrogenase Troponin T C-Reactive Protein NT-Pro-B Natriuret Pep Total Protein Albumin LDL Cholesterol Direct Vitamin B12 Fluid Glucose Fluid Total Protein Vancomycin Trough Crossmatch 12/21/21 12/21/21 12/21/21 00:45 04:21 04:21 WBC RBC 3.47 L Hgb 9.4 L Hct 29.2 L MCV MCH 27 L MCHC RDW 18.1 H Plt Count Seg Neuts % (Manual) Lymphocytes % (Manual) Seg Neutrophils # Man Lymphocytes # (Manual) Monocytes # (Manual) PT INR D-Dimer ABG pH ABG pO2 ABG HCO3 ABG O2 Saturation ABG Base Excess ABG Hemoglobin Oxyhemoglobin Sodium 134 L Potassium Chloride Carbon Dioxide BUN 35 H Creatinine 0.5 L Glucose 122 H POC Glucose 125 H Lactic Acid Calcium 8.2 L Phosphorus Magnesium AST ALT Alkaline Phosphatase Lactate Dehydrogenase Troponin T C-Reactive Protein NT-Pro-B Natriuret Pep Total Protein Albumin LDL Cholesterol Direct Vitamin B12 Fluid Glucose Fluid Total Protein Vancomycin Trough Crossmatch 12/21/21 12/21/21 12/21/21 05:38 11:29 16:16 WBC RBC Hgb Hct MCV MCH MCHC RDW Plt Count Seg Neuts % (Manual) Lymphocytes % (Manual) Seg Neutrophils # Man Lymphocytes # (Manual) Monocytes # (Manual) PT INR D-Dimer ABG pH ABG pO2 ABG HCO3 ABG O2 Saturation ABG Base Excess ABG Hemoglobin Oxyhemoglobin Sodium Potassium Chloride Carbon Dioxide BUN Creatinine Glucose POC Glucose 127 H 121 H 113 H Lactic Acid Calcium Phosphorus Magnesium AST ALT Alkaline Phosphatase Lactate Dehydrogenase Troponin T C-Reactive Protein NT-Pro-B Natriuret Pep Total Protein Albumin LDL Cholesterol Direct Vitamin B12 Fluid Glucose Fluid Total Protein Vancomycin Trough Crossmatch 12/22/21 12/22/21 12/23/21 04:58 04:58 06:40 WBC 11.5 H RBC 3.43 L Hgb 9.8 L Hct 28.7 L MCV MCH MCHC RDW 18.5 H 17.9 H Plt Count Seg Neuts % (Manual) Lymphocytes % (Manual) Seg Neutrophils # Man Lymphocytes # (Manual) Monocytes # (Manual) PT INR D-Dimer ABG pH ABG pO2 ABG HCO3 ABG O2 Saturation ABG Base Excess ABG Hemoglobin Oxyhemoglobin Sodium 130 L Potassium Chloride 97.8 L Carbon Dioxide BUN 31 H Creatinine 0.5 L Glucose 122 H POC Glucose Lactic Acid Calcium 7.9 L Phosphorus Magnesium AST ALT Alkaline Phosphatase Lactate Dehydrogenase Troponin T C-Reactive Protein NT-Pro-B Natriuret Pep Total Protein Albumin LDL Cholesterol Direct Vitamin B12 Fluid Glucose Fluid Total Protein Vancomycin Trough Crossmatch 12/23/21 12/23/21 12/24/21 06:40 23:25 04:24 WBC 11.7 H RBC Hgb 9.8 L Hct MCV MCH 26 L MCHC RDW 18.1 H Plt Count Seg Neuts % (Manual) Lymphocytes % (Manual) Seg Neutrophils # Man Lymphocytes # (Manual) Monocytes # (Manual) PT INR D-Dimer ABG pH ABG pO2 ABG HCO3 ABG O2 Saturation ABG Base Excess ABG Hemoglobin Oxyhemoglobin Sodium 136 L Potassium Chloride Carbon Dioxide BUN 27 H Creatinine 0.4 L Glucose 107 H POC Glucose 110 H Lactic Acid Calcium 8.1 L Phosphorus Magnesium AST ALT Alkaline Phosphatase Lactate Dehydrogenase Troponin T C-Reactive Protein NT-Pro-B Natriuret Pep Total Protein Albumin LDL Cholesterol Direct Vitamin B12 Fluid Glucose Fluid Total Protein Vancomycin Trough Crossmatch 12/24/21 12/24/21 12/24/21 04:24 11:08 15:45 WBC RBC Hgb Hct MCV MCH MCHC RDW Plt Count Seg Neuts % (Manual) Lymphocytes % (Manual) Seg Neutrophils # Man Lymphocytes # (Manual) Monocytes # (Manual) PT INR D-Dimer ABG pH ABG pO2 ABG HCO3 ABG O2 Saturation ABG Base Excess ABG Hemoglobin Oxyhemoglobin Sodium 132 L Potassium Chloride Carbon Dioxide BUN 27 H Creatinine 0.3 L Glucose 108 H POC Glucose 116 H 107 H Lactic Acid Calcium Phosphorus Magnesium AST ALT Alkaline Phosphatase Lactate Dehydrogenase Troponin T C-Reactive Protein NT-Pro-B Natriuret Pep Total Protein Albumin LDL Cholesterol Direct Vitamin B12 Fluid Glucose Fluid Total Protein Vancomycin Trough Crossmatch 12/24/21 12/25/21 12/25/21 23:43 05:29 11:48 WBC RBC Hgb Hct MCV MCH MCHC RDW Plt Count Seg Neuts % (Manual) Lymphocytes % (Manual) Seg Neutrophils # Man Lymphocytes # (Manual) Monocytes # (Manual) PT INR D-Dimer ABG pH ABG pO2 ABG HCO3 ABG O2 Saturation ABG Base Excess ABG Hemoglobin Oxyhemoglobin Sodium Potassium Chloride Carbon Dioxide BUN Creatinine Glucose POC Glucose 123 H 107 H 119 H Lactic Acid Calcium Phosphorus Magnesium AST ALT Alkaline Phosphatase Lactate Dehydrogenase Troponin T C-Reactive Protein NT-Pro-B Natriuret Pep Total Protein Albumin LDL Cholesterol Direct Vitamin B12 Fluid Glucose Fluid Total Protein Vancomycin Trough Crossmatch 12/26/21 12/26/21 12/26/21 00:06 05:56 07:51 WBC 11.4 H RBC 3.40 L Hgb 9.3 L Hct 28.3 L MCV MCH 27 L MCHC RDW 18.2 H Plt Count Seg Neuts % (Manual) Lymphocytes % (Manual) Seg Neutrophils # Man Lymphocytes # (Manual) Monocytes # (Manual) PT INR D-Dimer ABG pH ABG pO2 ABG HCO3 ABG O2 Saturation ABG Base Excess ABG Hemoglobin Oxyhemoglobin Sodium Potassium Chloride Carbon Dioxide BUN Creatinine Glucose POC Glucose 133 H 107 H Lactic Acid Calcium Phosphorus Magnesium AST ALT Alkaline Phosphatase Lactate Dehydrogenase Troponin T C-Reactive Protein NT-Pro-B Natriuret Pep Total Protein Albumin LDL Cholesterol Direct Vitamin B12 Fluid Glucose Fluid Total Protein Vancomycin Trough Crossmatch 12/26/21 12/26/21 12/26/21 07:51 11:43 17:06 WBC RBC Hgb Hct MCV MCH MCHC RDW Plt Count Seg Neuts % (Manual) Lymphocytes % (Manual) Seg Neutrophils # Man Lymphocytes # (Manual) Monocytes # (Manual) PT INR D-Dimer ABG pH ABG pO2 ABG HCO3 ABG O2 Saturation ABG Base Excess ABG Hemoglobin Oxyhemoglobin Sodium 136 L Potassium Chloride Carbon Dioxide BUN 25 H Creatinine 0.3 L Glucose 131 H POC Glucose 119 H 128 H Lactic Acid Calcium Phosphorus Magnesium AST ALT Alkaline Phosphatase Lactate Dehydrogenase Troponin T C-Reactive Protein NT-Pro-B Natriuret Pep Total Protein Albumin LDL Cholesterol Direct Vitamin B12 Fluid Glucose Fluid Total Protein Vancomycin Trough Crossmatch 12/28/21 12/28/21 12/29/21 09:05 09:05 04:40 WBC RBC 3.19 L Hgb 8.9 L Hct 26.4 L MCV MCH 27 L MCHC RDW 18.4 H 17.9 H Plt Count Seg Neuts % (Manual) Lymphocytes % (Manual) Seg Neutrophils # Man Lymphocytes # (Manual) Monocytes # (Manual) PT INR D-Dimer ABG pH ABG pO2 ABG HCO3 ABG O2 Saturation ABG Base Excess ABG Hemoglobin Oxyhemoglobin Sodium 135 L Potassium Chloride 97.8 L Carbon Dioxide BUN 18 H Creatinine 0.3 L Glucose POC Glucose Lactic Acid Calcium Phosphorus Magnesium AST ALT Alkaline Phosphatase Lactate Dehydrogenase Troponin T C-Reactive Protein NT-Pro-B Natriuret Pep Total Protein Albumin LDL Cholesterol Direct Vitamin B12 Fluid Glucose Fluid Total Protein Vancomycin Trough Crossmatch 12/29/21 12/29/21 12/30/21 04:40 12:47 04:05 WBC RBC 3.29 L Hgb 8.7 L Hct 27.6 L MCV MCH 27 L MCHC RDW 17.6 H Plt Count Seg Neuts % (Manual) Lymphocytes % (Manual) Seg Neutrophils # Man Lymphocytes # (Manual) Monocytes # (Manual) PT INR D-Dimer ABG pH ABG pO2 ABG HCO3 ABG O2 Saturation ABG Base Excess ABG Hemoglobin Oxyhemoglobin Sodium 136 L Potassium Chloride Carbon Dioxide BUN Creatinine 0.3 L Glucose POC Glucose 67 L Lactic Acid Calcium 8.3 L Phosphorus Magnesium AST ALT Alkaline Phosphatase Lactate Dehydrogenase Troponin T C-Reactive Protein NT-Pro-B Natriuret Pep Total Protein Albumin LDL Cholesterol Direct Vitamin B12 Fluid Glucose Fluid Total Protein Vancomycin Trough Crossmatch 12/30/21 12/31/21 12/31/21 04:05 00:07 04:00 WBC RBC 3.05 L Hgb 8.5 L Hct 25.5 L MCV MCH MCHC RDW 18.2 H Plt Count Seg Neuts % (Manual) Lymphocytes % (Manual) Seg Neutrophils # Man Lymphocytes # (Manual) Monocytes # (Manual) PT INR D-Dimer ABG pH ABG pO2 ABG HCO3 ABG O2 Saturation ABG Base Excess ABG Hemoglobin Oxyhemoglobin Sodium 136 L Potassium 3.5 L Chloride Carbon Dioxide BUN Creatinine 0.4 L Glucose POC Glucose 139 H Lactic Acid Calcium Phosphorus Magnesium 1.50 L AST ALT Alkaline Phosphatase Lactate Dehydrogenase Troponin T C-Reactive Protein NT-Pro-B Natriuret Pep Total Protein Albumin LDL Cholesterol Direct Vitamin B12 Fluid Glucose Fluid Total Protein Vancomycin Trough Crossmatch 12/31/21 12/31/21 12/31/21 04:00 04:52 11:23 WBC RBC Hgb Hct MCV MCH MCHC RDW Plt Count Seg Neuts % (Manual) Lymphocytes % (Manual) Seg Neutrophils # Man Lymphocytes # (Manual) Monocytes # (Manual) PT INR D-Dimer ABG pH ABG pO2 ABG HCO3 ABG O2 Saturation ABG Base Excess ABG Hemoglobin Oxyhemoglobin Sodium Potassium Chloride Carbon Dioxide BUN 19 H Creatinine 0.4 L Glucose 116 H POC Glucose 121 H 116 H Lactic Acid Calcium Phosphorus Magnesium AST ALT Alkaline Phosphatase Lactate Dehydrogenase Troponin T C-Reactive Protein NT-Pro-B Natriuret Pep Total Protein Albumin LDL Cholesterol Direct Vitamin B12 Fluid Glucose Fluid Total Protein Vancomycin Trough Crossmatch 12/31/21 01/01/22 01/01/22 17:42 04:31 04:31 WBC RBC 2.83 L Hgb 7.7 L Hct 23.2 L MCV MCH 27 L MCHC RDW 18.3 H Plt Count Seg Neuts % (Manual) Lymphocytes % (Manual) Seg Neutrophils # Man Lymphocytes # (Manual) Monocytes # (Manual) PT INR D-Dimer ABG pH ABG pO2 ABG HCO3 ABG O2 Saturation ABG Base Excess ABG Hemoglobin Oxyhemoglobin Sodium 135 L Potassium Chloride 97.7 L Carbon Dioxide BUN 21 H Creatinine 0.5 L Glucose 127 H POC Glucose 107 H Lactic Acid Calcium 8.0 L Phosphorus Magnesium AST ALT Alkaline Phosphatase Lactate Dehydrogenase Troponin T C-Reactive Protein NT-Pro-B Natriuret Pep Total Protein Albumin LDL Cholesterol Direct Vitamin B12 Fluid Glucose Fluid Total Protein Vancomycin Trough Crossmatch 01/01/22 01/01/22 01/01/22 05:24 11:25 18:11 WBC RBC Hgb Hct MCV MCH MCHC RDW Plt Count Seg Neuts % (Manual) Lymphocytes % (Manual) Seg Neutrophils # Man Lymphocytes # (Manual) Monocytes # (Manual) PT INR D-Dimer ABG pH ABG pO2 ABG HCO3 ABG O2 Saturation ABG Base Excess ABG Hemoglobin Oxyhemoglobin Sodium Potassium Chloride Carbon Dioxide BUN Creatinine Glucose POC Glucose 124 H 140 H 144 H Lactic Acid Calcium Phosphorus Magnesium AST ALT Alkaline Phosphatase Lactate Dehydrogenase Troponin T C-Reactive Protein NT-Pro-B Natriuret Pep Total Protein Albumin LDL Cholesterol Direct Vitamin B12 Fluid Glucose Fluid Total Protein Vancomycin Trough Crossmatch 01/01/22 01/02/22 01/02/22 23:26 04:01 04:01 WBC RBC 2.57 L Hgb 7.1 L Hct 21.5 L MCV MCH MCHC RDW 18.1 H Plt Count Seg Neuts % (Manual) Lymphocytes % (Manual) Seg Neutrophils # Man Lymphocytes # (Manual) Monocytes # (Manual) PT INR D-Dimer ABG pH ABG pO2 ABG HCO3 ABG O2 Saturation ABG Base Excess ABG Hemoglobin Oxyhemoglobin Sodium 131 L Potassium 3.5 L Chloride 94.8 L Carbon Dioxide BUN 27 H Creatinine Glucose 121 H POC Glucose 121 H Lactic Acid Calcium Phosphorus Magnesium AST ALT Alkaline Phosphatase Lactate Dehydrogenase Troponin T C-Reactive Protein NT-Pro-B Natriuret Pep Total Protein Albumin LDL Cholesterol Direct Vitamin B12 Fluid Glucose Fluid Total Protein Vancomycin Trough Crossmatch 01/02/22 01/02/22 01/02/22 05:30 11:10 16:08 WBC RBC Hgb Hct MCV MCH MCHC RDW Plt Count Seg Neuts % (Manual) Lymphocytes % (Manual) Seg Neutrophils # Man Lymphocytes # (Manual) Monocytes # (Manual) PT INR D-Dimer ABG pH ABG pO2 ABG HCO3 ABG O2 Saturation ABG Base Excess ABG Hemoglobin Oxyhemoglobin Sodium Potassium Chloride Carbon Dioxide BUN Creatinine Glucose POC Glucose 124 H 117 H 130 H Lactic Acid Calcium Phosphorus Magnesium AST ALT Alkaline Phosphatase Lactate Dehydrogenase Troponin T C-Reactive Protein NT-Pro-B Natriuret Pep Total Protein Albumin LDL Cholesterol Direct Vitamin B12 Fluid Glucose Fluid Total Protein Vancomycin Trough Crossmatch 01/02/22 01/02/22 01/03/22 17:30 23:26 04:53 WBC RBC 2.82 L Hgb 7.7 L Hct 23.4 L MCV MCH 27 L MCHC RDW 18.0 H Plt Count Seg Neuts % (Manual) Lymphocytes % (Manual) Seg Neutrophils # Man Lymphocytes # (Manual) Monocytes # (Manual) PT INR D-Dimer ABG pH ABG pO2 ABG HCO3 ABG O2 Saturation ABG Base Excess ABG Hemoglobin Oxyhemoglobin Sodium Potassium Chloride Carbon Dioxide BUN Creatinine Glucose POC Glucose 114 H Lactic Acid Calcium Phosphorus Magnesium AST ALT Alkaline Phosphatase Lactate Dehydrogenase Troponin T C-Reactive Protein NT-Pro-B Natriuret Pep Total Protein Albumin LDL Cholesterol Direct Vitamin B12 Fluid Glucose Fluid Total Protein Vancomycin Trough 22.8 H Crossmatch 01/03/22 01/03/22 01/03/22 04:53 06:23 17:35 WBC RBC Hgb Hct MCV MCH MCHC RDW Plt Count Seg Neuts % (Manual) Lymphocytes % (Manual) Seg Neutrophils # Man Lymphocytes # (Manual) Monocytes # (Manual) PT INR D-Dimer ABG pH ABG pO2 ABG HCO3 ABG O2 Saturation ABG Base Excess ABG Hemoglobin Oxyhemoglobin Sodium 133 L Potassium Chloride 96.2 L Carbon Dioxide BUN 30 H Creatinine Glucose 107 H POC Glucose 122 H 107 H Lactic Acid Calcium Phosphorus Magnesium AST ALT Alkaline Phosphatase Lactate Dehydrogenase Troponin T C-Reactive Protein NT-Pro-B Natriuret Pep Total Protein Albumin LDL Cholesterol Direct Vitamin B12 Fluid Glucose Fluid Total Protein Vancomycin Trough Crossmatch 01/04/22 01/04/22 01/04/22 04:00 12:32 16:45 WBC RBC Hgb Hct MCV MCH MCHC RDW Plt Count Seg Neuts % (Manual) Lymphocytes % (Manual) Seg Neutrophils # Man Lymphocytes # (Manual) Monocytes # (Manual) PT INR D-Dimer ABG pH ABG pO2 ABG HCO3 ABG O2 Saturation ABG Base Excess ABG Hemoglobin Oxyhemoglobin Sodium 132 L Potassium Chloride 92.8 L Carbon Dioxide BUN 30 H Creatinine Glucose 115 H POC Glucose 111 H 111 H Lactic Acid Calcium Phosphorus Magnesium 1.60 L AST ALT Alkaline Phosphatase Lactate Dehydrogenase Troponin T C-Reactive Protein NT-Pro-B Natriuret Pep Total Protein Albumin LDL Cholesterol Direct Vitamin B12 Fluid Glucose Fluid Total Protein Vancomycin Trough Crossmatch 01/05/22 01/05/22 01/05/22 04:30 04:30 17:04 WBC RBC 3.11 L Hgb 8.4 L Hct 25.5 L MCV MCH 27 L MCHC RDW 17.6 H Plt Count Seg Neuts % (Manual) Lymphocytes % (Manual) Seg Neutrophils # Man Lymphocytes # (Manual) Monocytes # (Manual) PT INR D-Dimer ABG pH ABG pO2 ABG HCO3 ABG O2 Saturation ABG Base Excess ABG Hemoglobin Oxyhemoglobin Sodium 135 L Potassium Chloride 93.6 L Carbon Dioxide BUN 29 H Creatinine Glucose POC Glucose 67 L Lactic Acid Calcium Phosphorus Magnesium AST ALT Alkaline Phosphatase Lactate Dehydrogenase Troponin T C-Reactive Protein NT-Pro-B Natriuret Pep Total Protein Albumin LDL Cholesterol Direct Vitamin B12 Fluid Glucose Fluid Total Protein Vancomycin Trough Crossmatch 01/05/22 01/06/22 01/06/22 23:27 04:06 04:06 WBC RBC 2.89 L Hgb 7.7 L Hct 23.8 L MCV MCH 27 L MCHC RDW 18.0 H Plt Count Seg Neuts % (Manual) Lymphocytes % (Manual) Seg Neutrophils # Man Lymphocytes # (Manual) Monocytes # (Manual) PT 16.9 H INR 1.23 H D-Dimer ABG pH ABG pO2 ABG HCO3 ABG O2 Saturation ABG Base Excess ABG Hemoglobin Oxyhemoglobin Sodium Potassium Chloride Carbon Dioxide BUN Creatinine Glucose POC Glucose 110 H Lactic Acid Calcium Phosphorus Magnesium AST ALT Alkaline Phosphatase Lactate Dehydrogenase Troponin T C-Reactive Protein NT-Pro-B Natriuret Pep Total Protein Albumin LDL Cholesterol Direct Vitamin B12 Fluid Glucose Fluid Total Protein Vancomycin Trough Crossmatch 01/06/22 01/06/22 01/06/22 04:06 13:40 23:41 WBC RBC Hgb Hct MCV MCH MCHC RDW Plt Count Seg Neuts % (Manual) Lymphocytes % (Manual) Seg Neutrophils # Man Lymphocytes # (Manual) Monocytes # (Manual) PT INR D-Dimer ABG pH ABG pO2 ABG HCO3 ABG O2 Saturation ABG Base Excess ABG Hemoglobin Oxyhemoglobin Sodium 132 L Potassium Chloride 92.3 L Carbon Dioxide BUN 26 H Creatinine Glucose 111 H POC Glucose 120 H Lactic Acid Calcium Phosphorus Magnesium AST ALT Alkaline Phosphatase Lactate Dehydrogenase Troponin T C-Reactive Protein NT-Pro-B Natriuret Pep Total Protein Albumin LDL Cholesterol Direct Vitamin B12 Fluid Glucose 96 H Fluid Total Protein < 3.0 L Vancomycin Trough Crossmatch 01/07/22 01/07/22 01/07/22 05:20 11:30 17:00 WBC RBC Hgb Hct MCV MCH MCHC RDW Plt Count Seg Neuts % (Manual) Lymphocytes % (Manual) Seg Neutrophils # Man Lymphocytes # (Manual) Monocytes # (Manual) PT INR D-Dimer ABG pH ABG pO2 ABG HCO3 ABG O2 Saturation ABG Base Excess ABG Hemoglobin Oxyhemoglobin Sodium Potassium Chloride Carbon Dioxide BUN Creatinine Glucose POC Glucose 111 H 113 H 121 H Lactic Acid Calcium Phosphorus Magnesium AST ALT Alkaline Phosphatase Lactate Dehydrogenase Troponin T C-Reactive Protein NT-Pro-B Natriuret Pep Total Protein Albumin LDL Cholesterol Direct Vitamin B12 Fluid Glucose Fluid Total Protein Vancomycin Trough Crossmatch 01/07/22 01/08/22 01/08/22 23:41 11:26 16:23 WBC RBC Hgb Hct MCV MCH MCHC RDW Plt Count Seg Neuts % (Manual) Lymphocytes % (Manual) Seg Neutrophils # Man Lymphocytes # (Manual) Monocytes # (Manual) PT INR D-Dimer ABG pH ABG pO2 ABG HCO3 ABG O2 Saturation ABG Base Excess ABG Hemoglobin Oxyhemoglobin Sodium Potassium Chloride Carbon Dioxide BUN Creatinine Glucose POC Glucose 110 H 129 H 118 H Lactic Acid Calcium Phosphorus Magnesium AST ALT Alkaline Phosphatase Lactate Dehydrogenase Troponin T C-Reactive Protein NT-Pro-B Natriuret Pep Total Protein Albumin LDL Cholesterol Direct Vitamin B12 Fluid Glucose Fluid Total Protein Vancomycin Trough Crossmatch Chest x-ray: report reviewed, image reviewed Additional Studies: CHEST 1 VIEW 01/06/22 INDICATION: Right Pleural Effusion. COMPARISON: None FINDINGS: Support devices: Stable Heart: Stable mild cardiomegaly Lungs/Pleura: Near complete evacuation of the right pleural effusion is demon strated. Mild pulmonary venous congestion and small left pleural effusion are stable. No pneumothorax. Additional findings: None. IMPRESSION: Near complete evacuation of the right pleural effusion. No pneumothorax. Allied health notes reviewed: nursing
[2022-01-09] MEDS: ONDANSETRON 4 MG/2 ML INJ IV PRN (20:25)
[2022-01-09] MEDS: ALPRAZolam 0.25 MG TAB FEEDTUBE PRN (21:00)
[2022-01-09] MEDS: MELATONIN 5 MG TAB PO SCH (22:43)
[2022-01-09] MEDS: traZODone 50 MG TAB PO SCH (22:44)
[2022-01-10] MEDS: SUCRALFATE 1 GM/10 ML ORAL LIQD FEEDTUBE SCH ×6 (01:00→23:23)
[2022-01-10] MEDS: ALPRAZolam 0.25 MG TAB FEEDTUBE PRN ×2 (04:14→20:02)
[2022-01-10] MEDS: ONDANSETRON 4 MG/2 ML INJ IV PRN ×2 (04:14→20:01)
[2022-01-10 05:07] LABS: Blood Urea Nitrogen 29 mg/dL (7-17); Calcium 8.9 mg/dL (8.4-10.2); Hemolysis Index 1
[2022-01-10 05:16] LABS: BUN/Creatinine Ratio 58
[2022-01-10] MEDS: DOCUSATE SODIUM 100 MG/10 ML ORAL LIQD FEEDTUBE SCH ×3 (06:55→22:20)
[2022-01-10] MEDS: SENNOSIDES ORAL LIQD 8.8 MG/5 ML ORAL LIQD FEEDTUBE SCH ×3 (06:55→22:21)
[2022-01-10] MEDS: LEVOTHYROXINE 125 MCG TAB FEEDTUBE SCH (07:50)
[2022-01-10] MEDS: busPIRone 5 MG TAB FEEDTUBE SCH ×2 (09:10→22:19)
[2022-01-10] MEDS: GABAPENTIN 100 MG CAP FEEDTUBE SCH (09:10)
[2022-01-10] MEDS: LANSOPRAZOLE 30 MG SOLUTAB FEEDTUBE SCH ×2 (09:11→22:19)
[2022-01-10] MEDS: HYDROcodone/ACETAMINOPHEN 10-325MG TAB FEEDTUBE SCH ×3 (09:11→20:01)
[2022-01-10] MEDS: METOPROLOL TARTRATE 25 MG TAB FEEDTUBE SCH ×2 (09:11→22:20)
[2022-01-10] MEDS: FUROSEMIDE 20 MG TAB PO SCH (09:11)
[2022-01-10] MEDS: SPIRONOLACTONE 25 MG TAB FEEDTUBE SCH (09:11)
[2022-01-10] MEDS: VANCOMYCIN/NS 1 GM/250 ML 1 GM/250 ML BAG IV SCH (09:12)
[2022-01-10] MEDS: MIDODRINE 5 MG TAB FEEDTUBE SCH ×3 (09:12→18:05)
[2022-01-10] MEDS: QUEtiapine 25 MG TAB FEEDTUBE SCH ×2 (09:12→22:19)
[2022-01-10] MEDS: POLYETHYLENE GLYCOL 3350 17 GM POWDER FEEDTUBE SCH (09:13)
--- NOTE | 2022-01-10 12:40 | Progress Note ---
Assessment and Plan Gram positive Bacteremia (MRSA) Acute respiratory failure with hypoxia, now on MVS Acute microcytic anemia Bilateral pneumonia DVT Left pleural effusion Cardiomyopathy EF 30-35% Moderate pulmonary HTN - care plamn discussed at length with daughter - reduced p-supp to 12 cm H2O - continue Lasix 20 mg p.o. daily - follow I's & O's and monitor electrolytes - continue daily SAT and SBT assessment as tolerated - no new issues otherwise, continue care as below; - LTAC evaluation ongoing - continue Seroquel - continue Vancomycin for MRSA bacteremia (6 weeks of therapy recommended) - prn Levophed for target MAP > 65 mmHg - continue to wean supplemental oxygen for target O2 sat's > 90% acutely - VAP bundle addressed - continue lung protective strategies - continue bronchodilators with routine trach care and pulmonary hygiene per RT - wean per pulmonary driven protocols otherwise - avoid nephrotoxins, renally dose all medications - continue accuchecks with glycemic control per SSI (While critically ill target blood glucose of 140-180 mg/dL; avoid hypoglycemia) - sedation prn for target RASS 0 to -1 - antibiotics per ID recommendations - continue to avoid benzodiazepine's, reduce the possibility of delirium - prn analgesia per CPOT score - Maintenance of sleep-wake cycle, avoid delirium - continue enteral nutritional support at goal rate as tolerated - G.I. & VTE prophylaxis - PT/OT/ROM exercises - continue mobility protocols for pressure ulcer prophylaxis - Monitor hemodynamics closely - continue other care per attending / other consultants - discharge planning ongoing concurrently COVID SPECIFIC INTERVENTIONS - COVID-19 PCR negative .... Re-evaluate in am & prn CONDITION: CRITICAL PROGNOSIS: GUARDED CODE STATUS: FULL CODE The high probability of a clinically significant, sudden or life-threatening deterioration of the [respiratory, cardiovascular & neurologic] system(s) required my full and direct attention, intervention and personal management. The aggregate critical care time was [34] minutes without overlap. Time includes spe nt on; [x] Data Review and interpretation [x] Patient assessment and monitoring of vital signs [x] Documentation [x] Medication orders and management Subjective Date of service: 01/10/22 Principal diagnosis: Septic shock; AHRF; Anemia; Pneumonia; pleural effusion; HFrEF; Pulm HTN Interval history: Patient is seen today for: Septic shock; Acute hypoxemic respiratory failure; Anemia; Bilateral pneumonia; Left pleural effusion; HFrEF 30-35%; Pulm HTN RVSP 49 Seen and examined at bedside; 24hour events reviewed; nursing and respiratory care staff consulted; no adverse overnight events reported to me; resting in bed; daughter visiting; tolerating SBT well today with p-supp at 14 cm H2O Objective Vital Signs - 12hr 01/10/22 01/10/22 01/10/22 01:00 02:00 03:00 Temperature Pulse Rate 60 69 65 Pulse Rate [ From Monitor] Respiratory 19 24 18 Rate Blood Pressure 126/52 118/51 122/47 O2 Sat by Pulse 100 98 98 Oximetry 01/10/22 01/10/22 01/10/22 04:00 04:10 05:00 Temperature 97.4 F L Pulse Rate 68 65 64 Pulse Rate [ 66 From Monitor] Respiratory 22 4 L 13 Rate Blood Pressure 122/47 122/47 151/69 O2 Sat by Pulse 100 99 99 Oximetry 01/10/22 01/10/22 01/10/22 06:00 07:00 08:00 Temperature 97.7 F Pulse Rate 60 60 60 Pulse Rate [ 64 From Monitor] Respiratory 19 13 13 Rate Blood Pressure 117/49 123/53 123/53 O2 Sat by Pulse 100 100 95 Oximetry 01/10/22 01/10/22 01/10/22 09:00 09:11 10:00 Temperature Pulse Rate 60 66 71 Pulse Rate [ From Monitor] Respiratory 14 21 Rate Blood Pressure 141/51 141/51 141/51 O2 Sat by Pulse 100 Oximetry 01/10/22 11:00 Temperature Pulse Rate 60 Pulse Rate [ From Monitor] Respiratory 18 Rate Blood Pressure 129/58 O2 Sat by Pulse 100 Oximetry Constitutional: no acute distress, asleep, other (trach to MVS, frail elderly woman with mildly increased respiratory effort at rest on MVS) Eyes: non-icteric ENT: oropharynx moist, other (+ Midline tracheostomy with minimal non bloody secretions) Neck: supple, no lymphadenopathy, no JVD Effort: mildly labored Ascultation: Bilateral: diminished breath sounds, rhonchi Percussion: Bilateral: not dull Cardiovascular: regular rate and rhythm, other (S1,S2) Gastrointestinal: normoactive bowel sounds, soft, non-tender, non-distended (protuberant) Integumentary: normal Extremities: no cyanosis, pink and warm, pulses normal, edema (2+) Neurologic: normal mental status, non-focal exam (grossly), pupils equal and round, motor strength normal and Psychiatric: mood appropriate, affect normal CBC and BMP: 01/06/22 04:06 01/10/22 04:00 ABG, PT/INR, D-dimer: ABG ABG pH 7.479 pH Units (7.350-7.450) H 12/16/21 20:52 ABG pCO2 37.5 mm Hg 12/16/21 20:52 ABG pO2 79.3 mm Hg (80.0-90.0) L 12/16/21 20:52 ABG O2 Saturation 97.0 % (95.0-99.0) 12/16/21 20:52 PT/INR, D-dimer PT 16.9 Sec. (12.2-14.9) H 01/06/22 04:06 INR 1.23 (0.87-1.13) H 01/06/22 04:06 D-Dimer 2655.00 ng/mlDDU (0-234) H 11/11/21 04:28 Abnormal lab findings: Abnormal Labs 11/03/21 11/03/21 11/03/21 22:32 22:32 22:32 WBC 29.3 H RBC 2.93 L Hgb 6.1 L Hct 21.9 L MCV 75 L MCH 21 L MCHC 28 L RDW 19.7 H Plt Count Seg Neuts % (Manual) 97.0 H Lymphocytes % (Manual) 3.0 L Seg Neutrophils # Man 28.4 H Lymphocytes # (Manual) 0.9 L Monocytes # (Manual) PT 18.6 H INR 1.40 H D-Dimer ABG pH ABG pO2 ABG HCO3 ABG O2 Saturation ABG Base Excess ABG Hemoglobin Oxyhemoglobin Sodium Potassium Chloride Carbon Dioxide 20 L BUN 33 H Creatinine Glucose 119 H POC Glucose Lactic Acid Calcium 8.3 L Phosphorus Magnesium AST ALT Alkaline Phosphatase Lactate Dehydrogenase Troponin T 0.035 H C-Reactive Protein NT-Pro-B Natriuret Pep Total Protein Albumin LDL Cholesterol Direct 34 L Vitamin B12 Fluid Glucose Fluid Total Protein Vancomycin Trough Crossmatch 11/03/21 11/03/21 11/03/21 22:32 22:32 23:57 WBC RBC Hgb Hct MCV MCH MCHC RDW Plt Count Seg Neuts % (Manual) Lymphocytes % (Manual) Seg Neutrophils # Man Lymphocytes # (Manual) Monocytes # (Manual) PT INR D-Dimer ABG pH ABG pO2 ABG HCO3 ABG O2 Saturation ABG Base Excess ABG Hemoglobin Oxyhemoglobin Sodium Potassium Chloride Carbon Dioxide BUN Creatinine Glucose POC Glucose Lactic Acid 3.70 H* Calcium Phosphorus Magnesium AST ALT Alkaline Phosphatase 139 H Lactate Dehydrogenase Troponin T C-Reactive Protein NT-Pro-B Natriuret Pep 7895 H Total Protein Albumin 3.5 L LDL Cholesterol Direct Vitamin B12 Fluid Glucose Fluid Total Protein Vancomycin Trough Crossmatch See Detail 11/04/21 11/04/21 11/05/21 00:59 13:58 00:51 WBC 27.9 H RBC 3.28 L Hgb 7.3 L Hct 25.5 L MCV 78 L MCH 22 L MCHC 29 L RDW 19.1 H Plt Count Seg Neuts % (Manual) 96.0 H Lymphocytes % (Manual) 2.0 L Seg Neutrophils # Man 26.8 H Lymphocytes # (Manual) 0.6 L Monocytes # (Manual) PT INR D-Dimer ABG pH ABG pO2 ABG HCO3 ABG O2 Saturation ABG Base Excess ABG Hemoglobin Oxyhemoglobin Sodium Potassium Chloride Carbon Dioxide BUN Creatinine Glucose POC Glucose Lactic Acid Calcium Phosphorus Magnesium AST ALT Alkaline Phosphatase Lactate Dehydrogenase Troponin T 0.051 H D 0.032 H D C-Reactive Protein NT-Pro-B Natriuret Pep Total Protein Albumin LDL Cholesterol Direct Vitamin B12 Fluid Glucose Fluid Total Protein Vancomycin Trough Crossmatch 11/05/21 11/05/21 11/05/21 06:11 06:11 06:11 WBC 31.8 H RBC 3.57 L Hgb 8.0 L Hct 27.7 L MCV 78 L MCH 22 L MCHC 29 L RDW 19.2 H Plt Count Seg Neuts % (Manual) 91.0 H Lymphocytes % (Manual) 4.5 L Seg Neutrophils # Man 28.9 H Lymphocytes # (Manual) Monocytes # (Manual) 1.1 H PT INR D-Dimer 1494.53 H ABG pH ABG pO2 ABG HCO3 ABG O2 Saturation ABG Base Excess ABG Hemoglobin Oxyhemoglobin Sodium Potassium Chloride Carbon Dioxide 19 L BUN 42 H Creatinine Glucose 115 H POC Glucose Lactic Acid Calcium Phosphorus Magnesium AST 43 H ALT Alkaline Phosphatase Lactate Dehydrogenase 187 H Troponin T C-Reactive Protein 22.20 H NT-Pro-B Natriuret Pep Total Protein 6.0 L Albumin 3.2 L LDL Cholesterol Direct Vitamin B12 Fluid Glucose Fluid Total Protein Vancomycin Trough Crossmatch 11/05/21 11/05/21 11/06/21 06:11 12:15 00:30 WBC RBC Hgb Hct MCV MCH MCHC RDW Plt Count Seg Neuts % (Manual) Lymphocytes % (Manual) Seg Neutrophils # Man Lymphocytes # (Manual) Monocytes # (Manual) PT INR D-Dimer ABG pH ABG pO2 ABG HCO3 ABG O2 Saturation ABG Base Excess ABG Hemoglobin Oxyhemoglobin Sodium Potassium Chloride Carbon Dioxide BUN Creatinine Glucose POC Glucose 113 H 69 L Lactic Acid Calcium Phosphorus Magnesium AST ALT Alkaline Phosphatase Lactate Dehydrogenase Troponin T 0.033 H C-Reactive Protein NT-Pro-B Natriuret Pep Total Protein Albumin LDL Cholesterol Direct Vitamin B12 Fluid Glucose Fluid Total Protein Vancomycin Trough Crossmatch 11/06/21 11/06/21 11/06/21 05:50 15:50 15:50 WBC 25.5 H RBC 3.62 L Hgb 8.0 L Hct 27.5 L MCV 76 L MCH 22 L MCHC 29 L RDW 19.6 H Plt Count Seg Neuts % (Manual) 92.0 H Lymphocytes % (Manual) 5.0 L Seg Neutrophils # Man 23.5 H Lymphocytes # (Manual) Monocytes # (Manual) PT INR D-Dimer ABG pH 7.305 L ABG pO2 ABG HCO3 15.8 L ABG O2 Saturation ABG Base Excess -9.6 L ABG Hemoglobin 8.6 L Oxyhemoglobin 94.6 L Sodium Potassium Chloride 113.9 H Carbon Dioxide 17 L BUN 56 H Creatinine Glucose 114 H POC Glucose Lactic Acid Calcium 7.9 L Phosphorus Magnesium AST 1410 H ALT 934 H Alkaline Phosphatase 142 H Lactate Dehydrogenase Troponin T C-Reactive Protein NT-Pro-B Natriuret Pep Total Protein 5.0 L Albumin 2.6 L LDL Cholesterol Direct Vitamin B12 Fluid Glucose Fluid Total Protein Vancomycin Trough Crossmatch 11/07/21 11/07/21 11/07/21 03:30 04:50 08:07 WBC RBC Hgb Hct MCV MCH MCHC RDW Plt Count Seg Neuts % (Manual) Lymphocytes % (Manual) Seg Neutrophils # Man Lymphocytes # (Manual) Monocytes # (Manual) PT INR D-Dimer ABG pH ABG pO2 296.9 H ABG HCO3 18.1 L ABG O2 Saturation 99.5 H ABG Base Excess -5.9 L ABG Hemoglobin 7.6 L Oxyhemoglobin Sodium Potassium Chloride Carbon Dioxide BUN Creatinine Glucose POC Glucose 106 H 108 H Lactic Acid Calcium Phosphorus Magnesium AST ALT Alkaline Phosphatase Lactate Dehydrogenase Troponin T C-Reactive Protein NT-Pro-B Natriuret Pep Total Protein Albumin LDL Cholesterol Direct Vitamin B12 Fluid Glucose Fluid Total Protein Vancomycin Trough Crossmatch 11/08/21 11/08/21 11/08/21 03:10 18:05 23:43 WBC RBC Hgb Hct MCV MCH MCHC RDW Plt Count Seg Neuts % (Manual) Lymphocytes % (Manual) Seg Neutrophils # Man Lymphocytes # (Manual) Monocytes # (Manual) PT INR D-Dimer ABG pH ABG pO2 127.4 H ABG HCO3 ABG O2 Saturation ABG Base Excess -3.4 L ABG Hemoglobin 7.4 L Oxyhemoglobin Sodium Potassium Chloride Carbon Dioxide BUN Creatinine Glucose POC Glucose 113 H 141 H Lactic Acid Calcium Phosphorus Magnesium AST ALT Alkaline Phosphatase Lactate Dehydrogenase Troponin T C-Reactive Protein NT-Pro-B Natriuret Pep Total Protein Albumin LDL Cholesterol Direct Vitamin B12 Fluid Glucose Fluid Total Protein Vancomycin Trough Crossmatch 11/08/21 11/08/21 11/09/21 Unknown Unknown 02:00 WBC 14.5 H RBC 3.35 L Hgb 7.5 L 8.1 L Hct 25.4 L 27.6 L MCV 76 L 76 L MCH 23 L 22 L MCHC RDW 19.9 H 19.9 H Plt Count Seg Neuts % (Manual) Lymphocytes % (Manual) Seg Neutrophils # Man Lymphocytes # (Manual) Monocytes # (Manual) PT INR D-Dimer ABG pH ABG pO2 ABG HCO3 ABG O2 Saturation ABG Base Excess ABG Hemoglobin Oxyhemoglobin Sodium 154 H D Potassium 3.3 L Chloride 120.7 H Carbon Dioxide 20 L BUN 38 H Creatinine Glucose POC Glucose Lactic Acid Calcium 8.3 L Phosphorus Magnesium AST ALT Alkaline Phosphatase Lactate Dehydrogenase Troponin T C-Reactive Protein NT-Pro-B Natriuret Pep Total Protein Albumin LDL Cholesterol Direct Vitamin B12 Fluid Glucose Fluid Total Protein Vancomycin Trough Crossmatch 11/09/21 11/09/21 11/09/21 02:00 02:31 05:12 WBC RBC Hgb Hct MCV MCH MCHC RDW Plt Count Seg Neuts % (Manual) Lymphocytes % (Manual) Seg Neutrophils # Man Lymphocytes # (Manual) Monocytes # (Manual) PT INR D-Dimer ABG pH 7.479 H ABG pO2 121.3 H ABG HCO3 ABG O2 Saturation ABG Base Excess ABG Hemoglobin 7.3 L Oxyhemoglobin Sodium Potassium Chloride 112.5 H Carbon Dioxide BUN 33 H Creatinine Glucose 161 H POC Glucose 135 H Lactic Acid Calcium Phosphorus Magnesium AST 251 H ALT 481 H Alkaline Phosphatase Lactate Dehydrogenase Troponin T C-Reactive Protein NT-Pro-B Natriuret Pep Total Protein 5.0 L Albumin 2.8 L LDL Cholesterol Direct Vitamin B12 Fluid Glucose Fluid Total Protein Vancomycin Trough Crossmatch 11/09/21 11/09/21 11/09/21 11:33 16:32 23:28 WBC RBC Hgb Hct MCV MCH MCHC RDW Plt Count Seg Neuts % (Manual) Lymphocytes % (Manual) Seg Neutrophils # Man Lymphocytes # (Manual) Monocytes # (Manual) PT INR D-Dimer ABG pH ABG pO2 ABG HCO3 ABG O2 Saturation ABG Base Excess ABG Hemoglobin Oxyhemoglobin Sodium Potassium Chloride Carbon Dioxide BUN Creatinine Glucose POC Glucose 132 H 133 H 143 H Lactic Acid Calcium Phosphorus Magnesium AST ALT Alkaline Phosphatase Lactate Dehydrogenase Troponin T C-Reactive Protein NT-Pro-B Natriuret Pep Total Protein Albumin LDL Cholesterol Direct Vitamin B12 Fluid Glucose Fluid Total Protein Vancomycin Trough Crossmatch 11/10/21 11/10/21 11/10/21 04:00 04:00 05:35 WBC 16.0 H RBC 3.61 L Hgb 8.0 L Hct 27.1 L MCV 75 L MCH 22 L MCHC RDW 20.4 H Plt Count Seg Neuts % (Manual) Lymphocytes % (Manual) Seg Neutrophils # Man Lymphocytes # (Manual) Monocytes # (Manual) PT INR D-Dimer ABG pH ABG pO2 ABG HCO3 ABG O2 Saturation ABG Base Excess ABG Hemoglobin Oxyhemoglobin Sodium 149 H Potassium Chloride 114.1 H Carbon Dioxide BUN 31 H Creatinine Glucose 148 H POC Glucose 132 H Lactic Acid Calcium 8.2 L Phosphorus Magnesium AST ALT Alkaline Phosphatase Lactate Dehydrogenase Troponin T C-Reactive Protein NT-Pro-B Natriuret Pep Total Protein Albumin LDL Cholesterol Direct Vitamin B12 Fluid Glucose Fluid Total Protein Vancomycin Trough Crossmatch 11/10/21 11/10/21 11/10/21 11:31 14:08 15:35 WBC RBC Hgb Hct MCV MCH MCHC RDW Plt Count Seg Neuts % (Manual) Lymphocytes % (Manual) Seg Neutrophils # Man Lymphocytes # (Manual) Monocytes # (Manual) PT INR D-Dimer ABG pH ABG pO2 126.6 H ABG HCO3 ABG O2 Saturation ABG Base Excess ABG Hemoglobin 7.4 L Oxyhemoglobin Sodium Potassium Chloride Carbon Dioxide BUN Creatinine Glucose POC Glucose 147 H Lactic Acid Calcium Phosphorus Magnesium AST ALT Alkaline Phosphatase Lactate Dehydrogenase Troponin T C-Reactive Protein NT-Pro-B Natriuret Pep Total Protein Albumin LDL Cholesterol Direct Vitamin B12 1823 H Fluid Glucose Fluid Total Protein Vancomycin Trough Crossmatch 11/10/21 11/11/21 11/11/21 17:53 00:55 04:28 WBC RBC Hgb Hct MCV MCH MCHC RDW Plt Count Seg Neuts % (Manual) Lymphocytes % (Manual) Seg Neutrophils # Man Lymphocytes # (Manual) Monocytes # (Manual) PT INR D-Dimer ABG pH ABG pO2 ABG HCO3 ABG O2 Saturation ABG Base Excess ABG Hemoglobin Oxyhemoglobin Sodium 149 H Potassium Chloride 112.2 H Carbon Dioxide BUN 34 H Creatinine Glucose 148 H POC Glucose 140 H 145 H Lactic Acid Calcium 7.9 L Phosphorus Magnesium AST 53 H ALT 203 H Alkaline Phosphatase Lactate Dehydrogenase Troponin T C-Reactive Protein NT-Pro-B Natriuret Pep Total Protein 4.9 L Albumin 2.6 L LDL Cholesterol Direct Vitamin B12 Fluid Glucose Fluid Total Protein Vancomycin Trough Crossmatch 11/11/21 11/11/21 11/11/21 04:28 04:28 05:28 WBC 20.9 H RBC 3.47 L Hgb 7.5 L Hct 26.0 L MCV 75 L MCH 22 L MCHC 29 L RDW 21.6 H Plt Count 132 L Seg Neuts % (Manual) Lymphocytes % (Manual) Seg Neutrophils # Man Lymphocytes # (Manual) Monocytes # (Manual) PT INR D-Dimer 2655.00 H ABG pH ABG pO2 ABG HCO3 ABG O2 Saturation ABG Base Excess ABG Hemoglobin Oxyhemoglobin Sodium Potassium Chloride Carbon Dioxide BUN Creatinine Glucose POC Glucose 154 H Lactic Acid Calcium Phosphorus Magnesium AST ALT Alkaline Phosphatase Lactate Dehydrogenase Troponin T C-Reactive Protein NT-Pro-B Natriuret Pep Total Protein Albumin LDL Cholesterol Direct Vitamin B12 Fluid Glucose Fluid Total Protein Vancomycin Trough Crossmatch 11/11/21 11/11/21 11/12/21 12:38 18:13 00:14 WBC RBC Hgb Hct MCV MCH MCHC RDW Plt Count Seg Neuts % (Manual) Lymphocytes % (Manual) Seg Neutrophils # Man Lymphocytes # (Manual) Monocytes # (Manual) PT INR D-Dimer ABG pH ABG pO2 ABG HCO3 ABG O2 Saturation ABG Base Excess ABG Hemoglobin Oxyhemoglobin Sodium Potassium Chloride Carbon Dioxide BUN Creatinine Glucose POC Glucose 137 H 108 H 137 H Lactic Acid Calcium Phosphorus Magnesium AST ALT Alkaline Phosphatase Lactate Dehydrogenase Troponin T C-Reactive Protein NT-Pro-B Natriuret Pep Total Protein Albumin LDL Cholesterol Direct Vitamin B12 Fluid Glucose Fluid Total Protein Vancomycin Trough Crossmatch 11/12/21 11/12/21 11/12/21 05:40 06:24 11:12 WBC RBC Hgb Hct MCV MCH MCHC RDW Plt Count Seg Neuts % (Manual) Lymphocytes % (Manual) Seg Neutrophils # Man Lymphocytes # (Manual) Monocytes # (Manual) PT INR D-Dimer ABG pH 7.586 H ABG pO2 150.6 H ABG HCO3 27.2 H ABG O2 Saturation 99.1 H ABG Base Excess 5.2 H ABG Hemoglobin 7.5 L Oxyhemoglobin Sodium Potassium Chloride Carbon Dioxide BUN Creatinine Glucose POC Glucose 132 H 140 H Lactic Acid Calcium Phosphorus Magnesium AST ALT Alkaline Phosphatase Lactate Dehydrogenase Troponin T C-Reactive Protein NT-Pro-B Natriuret Pep Total Protein Albumin LDL Cholesterol Direct Vitamin B12 Fluid Glucose Fluid Total Protein Vancomycin Trough Crossmatch 11/12/21 11/12/21 11/12/21 14:50 14:50 17:13 WBC 19.8 H RBC 3.27 L Hgb 7.1 L Hct 24.5 L MCV 75 L MCH 22 L MCHC 29 L RDW 22.3 H Plt Count Seg Neuts % (Manual) Lymphocytes % (Manual) Seg Neutrophils # Man Lymphocytes # (Manual) Monocytes # (Manual) PT INR D-Dimer ABG pH ABG pO2 ABG HCO3 ABG O2 Saturation ABG Base Excess ABG Hemoglobin Oxyhemoglobin Sodium 150 H Potassium 3.3 L Chloride 112.0 H Carbon Dioxide BUN 40 H Creatinine Glucose 151 H POC Glucose 121 H Lactic Acid Calcium 7.4 L Phosphorus 1.70 L Magnesium 1.40 L AST ALT Alkaline Phosphatase Lactate Dehydrogenase Troponin T C-Reactive Protein NT-Pro-B Natriuret Pep Total Protein Albumin LDL Cholesterol Direct Vitamin B12 Fluid Glucose Fluid Total Protein Vancomycin Trough Crossmatch 11/12/21 11/13/21 11/13/21 23:19 05:34 06:30 WBC RBC Hgb Hct MCV MCH MCHC RDW Plt Count Seg Neuts % (Manual) Lymphocytes % (Manual) Seg Neutrophils # Man Lymphocytes # (Manual) Monocytes # (Manual) PT INR D-Dimer ABG pH ABG pO2 ABG HCO3 ABG O2 Saturation ABG Base Excess ABG Hemoglobin Oxyhemoglobin Sodium 149 H Potassium Chloride 60.0 L Carbon Dioxide BUN 40 H Creatinine Glucose 146 H POC Glucose 113 H 132 H Lactic Acid Calcium 7.3 L Phosphorus Magnesium 2.40 H AST ALT 72 H Alkaline Phosphatase Lactate Dehydrogenase Troponin T C-Reactive Protein NT-Pro-B Natriuret Pep Total Protein 5.2 L Albumin 2.2 L LDL Cholesterol Direct Vitamin B12 Fluid Glucose Fluid Total Protein Vancomycin Trough Crossmatch 11/13/21 11/13/21 11/13/21 06:30 08:30 11:19 WBC 21.2 H RBC 3.12 L Hgb 6.8 L Hct 23.2 L MCV 74 L MCH 22 L MCHC 29 L RDW 22.2 H Plt Count 135 L Seg Neuts % (Manual) Lymphocytes % (Manual) Seg Neutrophils # Man Lymphocytes # (Manual) Monocytes # (Manual) PT INR D-Dimer ABG pH ABG pO2 ABG HCO3 ABG O2 Saturation ABG Base Excess ABG Hemoglobin Oxyhemoglobin Sodium Potassium Chloride Carbon Dioxide BUN Creatinine Glucose POC Glucose 136 H Lactic Acid Calcium Phosphorus Magnesium AST ALT Alkaline Phosphatase Lactate Dehydrogenase Troponin T C-Reactive Protein NT-Pro-B Natriuret Pep Total Protein Albumin LDL Cholesterol Direct Vitamin B12 Fluid Glucose Fluid Total Protein Vancomycin Trough Crossmatch See Detail 11/13/21 11/14/21 11/14/21 18:21 00:01 04:46 WBC 20.0 H RBC 3.41 L Hgb 7.9 L Hct 26.8 L MCV MCH 23 L MCHC 29 L RDW 24.0 H Plt Count Seg Neuts % (Manual) Lymphocytes % (Manual) Seg Neutrophils # Man Lymphocytes # (Manual) Monocytes # (Manual) PT INR D-Dimer ABG pH ABG pO2 ABG HCO3 ABG O2 Saturation ABG Base Excess ABG Hemoglobin Oxyhemoglobin Sodium Potassium Chloride Carbon Dioxide BUN Creatinine Glucose POC Glucose 149 H 141 H Lactic Acid Calcium Phosphorus Magnesium AST ALT Alkaline Phosphatase Lactate Dehydrogenase Troponin T C-Reactive Protein NT-Pro-B Natriuret Pep Total Protein Albumin LDL Cholesterol Direct Vitamin B12 Fluid Glucose Fluid Total Protein Vancomycin Trough Crossmatch 11/14/21 11/14/21 11/14/21 04:46 05:10 11:10 WBC RBC Hgb Hct MCV MCH MCHC RDW Plt Count Seg Neuts % (Manual) Lymphocytes % (Manual) Seg Neutrophils # Man Lymphocytes # (Manual) Monocytes # (Manual) PT INR D-Dimer ABG pH ABG pO2 ABG HCO3 ABG O2 Saturation ABG Base Excess ABG Hemoglobin Oxyhemoglobin Sodium 148 H Potassium Chloride 113.1 H Carbon Dioxide BUN 43 H Creatinine Glucose 140 H POC Glucose 132 H 133 H Lactic Acid Calcium 7.5 L Phosphorus Magnesium AST ALT Alkaline Phosphatase Lactate Dehydrogenase Troponin T C-Reactive Protein NT-Pro-B Natriuret Pep Total Protein Albumin LDL Cholesterol Direct Vitamin B12 Fluid Glucose Fluid Total Protein Vancomycin Trough Crossmatch 11/14/21 11/14/21 11/14/21 16:14 17:48 23:23 WBC RBC Hgb Hct MCV MCH MCHC RDW Plt Count Seg Neuts % (Manual) Lymphocytes % (Manual) Seg Neutrophils # Man Lymphocytes # (Manual) Monocytes # (Manual) PT INR D-Dimer ABG pH ABG pO2 ABG HCO3 28.0 H ABG O2 Saturation ABG Base Excess 3.1 H ABG Hemoglobin 5.8 L Oxyhemoglobin 94.8 L Sodium Potassium Chloride Carbon Dioxide BUN Creatinine Glucose POC Glucose 130 H 136 H Lactic Acid Calcium Phosphorus Magnesium AST ALT Alkaline Phosphatase Lactate Dehydrogenase Troponin T C-Reactive Protein NT-Pro-B Natriuret Pep Total Protein Albumin LDL Cholesterol Direct Vitamin B12 Fluid Glucose Fluid Total Protein Vancomycin Trough Crossmatch 11/15/21 11/15/21 11/15/21 05:20 05:50 05:50 WBC 19.9 H RBC 3.50 L Hgb 8.2 L Hct 27.9 L MCV MCH 23 L MCHC 29 L RDW 24.9 H Plt Count Seg Neuts % (Manual) Lymphocytes % (Manual) Seg Neutrophils # Man Lymphocytes # (Manual) Monocytes # (Manual) PT INR D-Dimer ABG pH ABG pO2 ABG HCO3 ABG O2 Saturation ABG Base Excess ABG Hemoglobin Oxyhemoglobin Sodium 149 H Potassium Chloride 112.0 H Carbon Dioxide BUN 48 H Creatinine Glucose 152 H POC Glucose 137 H Lactic Acid Calcium 7.9 L Phosphorus Magnesium AST ALT Alkaline Phosphatase Lactate Dehydrogenase Troponin T C-Reactive Protein NT-Pro-B Natriuret Pep Total Protein Albumin LDL Cholesterol Direct Vitamin B12 Fluid Glucose Fluid Total Protein Vancomycin Trough Crossmatch 11/15/21 11/15/21 11/15/21 12:12 17:07 23:24 WBC RBC Hgb Hct MCV MCH MCHC RDW Plt Count Seg Neuts % (Manual) Lymphocytes % (Manual) Seg Neutrophils # Man Lymphocytes # (Manual) Monocytes # (Manual) PT INR D-Dimer ABG pH ABG pO2 ABG HCO3 ABG O2 Saturation ABG Base Excess ABG Hemoglobin Oxyhemoglobin Sodium Potassium Chloride Carbon Dioxide BUN Creatinine Glucose POC Glucose 114 H 135 H 123 H Lactic Acid Calcium Phosphorus Magnesium AST ALT Alkaline Phosphatase Lactate Dehydrogenase Troponin T C-Reactive Protein NT-Pro-B Natriuret Pep Total Protein Albumin LDL Cholesterol Direct Vitamin B12 Fluid Glucose Fluid Total Protein Vancomycin Trough Crossmatch 11/16/21 11/16/21 11/16/21 05:21 10:00 10:00 WBC 21.7 H RBC 2.57 L Hgb 6.0 L Hct 20.2 L D MCV MCH 24 L MCHC RDW 26.3 H Plt Count Seg Neuts % (Manual) Lymphocytes % (Manual) Seg Neutrophils # Man Lymphocytes # (Manual) Monocytes # (Manual) PT INR D-Dimer ABG pH ABG pO2 ABG HCO3 ABG O2 Saturation ABG Base Excess ABG Hemoglobin Oxyhemoglobin Sodium 153 H Potassium Chloride 114.9 H Carbon Dioxide BUN 74 H Creatinine Glucose 155 H POC Glucose 127 H Lactic Acid Calcium 8.1 L Phosphorus Magnesium AST ALT Alkaline Phosphatase Lactate Dehydrogenase Troponin T C-Reactive Protein NT-Pro-B Natriuret Pep Total Protein Albumin LDL Cholesterol Direct Vitamin B12 Fluid Glucose Fluid Total Protein Vancomycin Trough Crossmatch 11/16/21 11/16/21 11/16/21 11:34 14:00 15:25 WBC 17.2 H RBC 2.08 L Hgb 4.7 L* Hct 16.2 L* MCV 78 L MCH 23 L MCHC 29 L RDW 26.0 H Plt Count Seg Neuts % (Manual) 87.0 H Lymphocytes % (Manual) 8.0 L Seg Neutrophils # Man 15.0 H Lymphocytes # (Manual) Monocytes # (Manual) 0.9 H PT INR D-Dimer ABG pH ABG pO2 ABG HCO3 ABG O2 Saturation ABG Base Excess ABG Hemoglobin Oxyhemoglobin Sodium Potassium Chloride Carbon Dioxide BUN Creatinine Glucose POC Glucose 131 H Lactic Acid Calcium Phosphorus Magnesium AST ALT Alkaline Phosphatase Lactate Dehydrogenase Troponin T C-Reactive Protein NT-Pro-B Natriuret Pep Total Protein Albumin LDL Cholesterol Direct Vitamin B12 Fluid Glucose Fluid Total Protein Vancomycin Trough Crossmatch See Detail 11/16/21 11/16/21 11/16/21 15:25 17:21 22:43 WBC RBC Hgb 8.6 L D Hct 27.7 L D MCV MCH MCHC RDW Plt Count Seg Neuts % (Manual) Lymphocytes % (Manual) Seg Neutrophils # Man Lymphocytes # (Manual) Monocytes # (Manual) PT INR D-Dimer ABG pH ABG pO2 ABG HCO3 ABG O2 Saturation ABG Base Excess ABG Hemoglobin Oxyhemoglobin Sodium 148 H Potassium Chloride 113.2 H Carbon Dioxide BUN 84 H Creatinine Glucose 164 H POC Glucose 124 H Lactic Acid Calcium 7.6 L Phosphorus Magnesium AST ALT Alkaline Phosphatase Lactate Dehydrogenase Troponin T C-Reactive Protein NT-Pro-B Natriuret Pep Total Protein Albumin LDL Cholesterol Direct Vitamin B12 Fluid Glucose Fluid Total Protein Vancomycin Trough Crossmatch 11/16/21 11/17/21 11/17/21 23:07 05:33 05:56 WBC 25.1 H RBC 3.47 L Hgb 8.7 L Hct 28.5 L MCV MCH 25 L MCHC RDW 22.3 H Plt Count Seg Neuts % (Manual) Lymphocytes % (Manual) Seg Neutrophils # Man Lymphocytes # (Manual) Monocytes # (Manual) PT INR D-Dimer ABG pH ABG pO2 ABG HCO3 ABG O2 Saturation ABG Base Excess ABG Hemoglobin Oxyhemoglobin Sodium Potassium Chloride Carbon Dioxide BUN Creatinine Glucose POC Glucose 128 H 133 H Lactic Acid Calcium Phosphorus Magnesium AST ALT Alkaline Phosphatase Lactate Dehydrogenase Troponin T C-Reactive Protein NT-Pro-B Natriuret Pep Total Protein Albumin LDL Cholesterol Direct Vitamin B12 Fluid Glucose Fluid Total Protein Vancomycin Trough Crossmatch 11/17/21 11/17/21 11/17/21 05:56 11:00 11:55 WBC RBC Hgb 8.3 L Hct 26.9 L MCV MCH MCHC RDW Plt Count Seg Neuts % (Manual) Lymphocytes % (Manual) Seg Neutrophils # Man Lymphocytes # (Manual) Monocytes # (Manual) PT INR D-Dimer ABG pH ABG pO2 ABG HCO3 ABG O2 Saturation ABG Base Excess ABG Hemoglobin Oxyhemoglobin Sodium 151 H Potassium Chloride 113.6 H Carbon Dioxide BUN 85 H Creatinine Glucose 132 H POC Glucose 121 H Lactic Acid Calcium 7.8 L Phosphorus Magnesium AST ALT Alkaline Phosphatase Lactate Dehydrogenase Troponin T C-Reactive Protein NT-Pro-B Natriuret Pep Total Protein 5.1 L Albumin 2.2 L LDL Cholesterol Direct Vitamin B12 Fluid Glucose Fluid Total Protein Vancomycin Trough Crossmatch 11/17/21 11/17/21 11/18/21 18:04 18:55 00:26 WBC RBC Hgb 7.5 L 7.1 L Hct 24.8 L 23.6 L MCV MCH MCHC RDW Plt Count Seg Neuts % (Manual) Lymphocytes % (Manual) Seg Neutrophils # Man Lymphocytes # (Manual) Monocytes # (Manual) PT INR D-Dimer ABG pH ABG pO2 ABG HCO3 ABG O2 Saturation ABG Base Excess ABG Hemoglobin Oxyhemoglobin Sodium Potassium Chloride Carbon Dioxide BUN Creatinine Glucose POC Glucose 144 H Lactic Acid Calcium Phosphorus Magnesium AST ALT Alkaline Phosphatase Lactate Dehydrogenase Troponin T C-Reactive Protein NT-Pro-B Natriuret Pep Total Protein Albumin LDL Cholesterol Direct Vitamin B12 Fluid Glucose Fluid Total Protein Vancomycin Trough Crossmatch 11/18/21 11/18/21 11/18/21 00:43 05:10 05:10 WBC 12.5 H RBC 2.39 L Hgb 6.1 L Hct 20.2 L MCV MCH 25 L MCHC RDW 23.2 H Plt Count Seg Neuts % (Manual) Lymphocytes % (Manual) Seg Neutrophils # Man Lymphocytes # (Manual) Monocytes # (Manual) PT INR D-Dimer ABG pH ABG pO2 ABG HCO3 ABG O2 Saturation ABG Base Excess ABG Hemoglobin Oxyhemoglobin Sodium 131 L D Potassium 2.9 L* D Chloride 97.8 L Carbon Dioxide BUN 58 H Creatinine Glucose 665 H* POC Glucose 139 H Lactic Acid Calcium 7.0 L Phosphorus 2.20 L D Magnesium 1.50 L AST ALT Alkaline Phosphatase Lactate Dehydrogenase Troponin T C-Reactive Protein NT-Pro-B Natriuret Pep Total Protein Albumin LDL Cholesterol Direct Vitamin B12 Fluid Glucose Fluid Total Protein Vancomycin Trough Crossmatch 11/18/21 11/18/21 11/18/21 05:23 07:10 10:45 WBC RBC Hgb Hct MCV MCH MCHC RDW Plt Count Seg Neuts % (Manual) Lymphocytes % (Manual) Seg Neutrophils # Man Lymphocytes # (Manual) Monocytes # (Manual) PT INR D-Dimer ABG pH ABG pO2 ABG HCO3 ABG O2 Saturation ABG Base Excess ABG Hemoglobin Oxyhemoglobin Sodium 148 H D Potassium 3.1 L Chloride 111.9 H Carbon Dioxide BUN 63 H Creatinine Glucose 141 H POC Glucose 124 H Lactic Acid Calcium 8.1 L D Phosphorus Magnesium AST ALT Alkaline Phosphatase Lactate Dehydrogenase Troponin T C-Reactive Protein NT-Pro-B Natriuret Pep Total Protein Albumin LDL Cholesterol Direct Vitamin B12 Fluid Glucose Fluid Total Protein Vancomycin Trough Crossmatch See Detail 11/18/21 11/19/21 11/19/21 11:57 00:19 04:55 WBC RBC 3.35 L Hgb 9.0 L 8.9 L Hct 28.3 L D 28.1 L MCV MCH 27 L MCHC RDW 20.3 H Plt Count Seg Neuts % (Manual) Lymphocytes % (Manual) Seg Neutrophils # Man Lymphocytes # (Manual) Monocytes # (Manual) PT INR D-Dimer ABG pH ABG pO2 ABG HCO3 ABG O2 Saturation ABG Base Excess ABG Hemoglobin Oxyhemoglobin Sodium Potassium Chloride Carbon Dioxide BUN Creatinine Glucose POC Glucose 119 H Lactic Acid Calcium Phosphorus Magnesium AST ALT Alkaline Phosphatase Lactate Dehydrogenase Troponin T C-Reactive Protein NT-Pro-B Natriuret Pep Total Protein Albumin LDL Cholesterol Direct Vitamin B12 Fluid Glucose Fluid Total Protein Vancomycin Trough Crossmatch 11/19/21 11/19/21 11/20/21 04:55 05:42 00:55 WBC RBC Hgb 9.0 L Hct 28.6 L MCV MCH MCHC RDW Plt Count Seg Neuts % (Manual) Lymphocytes % (Manual) Seg Neutrophils # Man Lymphocytes # (Manual) Monocytes # (Manual) PT INR D-Dimer ABG pH ABG pO2 ABG HCO3 ABG O2 Saturation ABG Base Excess ABG Hemoglobin Oxyhemoglobin Sodium Potassium 3.5 L Chloride 108.6 H Carbon Dioxide BUN 47 H Creatinine Glucose 207 H POC Glucose 63 L Lactic Acid Calcium 7.1 L Phosphorus Magnesium AST ALT Alkaline Phosphatase Lactate Dehydrogenase Troponin T C-Reactive Protein NT-Pro-B Natriuret Pep Total Protein Albumin LDL Cholesterol Direct Vitamin B12 Fluid Glucose Fluid Total Protein Vancomycin Trough Crossmatch 11/20/21 11/20/21 11/20/21 05:40 05:40 Unknown WBC RBC 3.40 L Hgb 9.1 L Hct 28.8 L MCV MCH 27 L MCHC RDW 20.7 H Plt Count Seg Neuts % (Manual) Lymphocytes % (Manual) Seg Neutrophils # Man Lymphocytes # (Manual) Monocytes # (Manual) PT INR D-Dimer ABG pH ABG pO2 ABG HCO3 ABG O2 Saturation ABG Base Excess -2.7 L ABG Hemoglobin 9.5 L Oxyhemoglobin 94.3 L Sodium Potassium 3.5 L Chloride 108.9 H Carbon Dioxide BUN 37 H Creatinine Glucose 117 H POC Glucose Lactic Acid Calcium 7.5 L Phosphorus Magnesium AST ALT Alkaline Phosphatase Lactate Dehydrogenase Troponin T C-Reactive Protein NT-Pro-B Natriuret Pep Total Protein Albumin LDL Cholesterol Direct Vitamin B12 Fluid Glucose Fluid Total Protein Vancomycin Trough Crossmatch 11/21/21 11/21/21 11/21/21 04:30 04:30 16:00 WBC RBC 3.25 L Hgb 8.6 L Hct 28.1 L MCV MCH 26 L MCHC RDW 20.7 H Plt Count Seg Neuts % (Manual) Lymphocytes % (Manual) Seg Neutrophils # Man Lymphocytes # (Manual) Monocytes # (Manual) PT INR D-Dimer ABG pH ABG pO2 114.2 H ABG HCO3 ABG O2 Saturation ABG Base Excess ABG Hemoglobin 9.1 L Oxyhemoglobin Sodium 134 L Potassium Chloride Carbon Dioxide 20 L BUN 34 H Creatinine Glucose POC Glucose Lactic Acid Calcium 7.1 L Phosphorus Magnesium AST ALT Alkaline Phosphatase Lactate Dehydrogenase Troponin T C-Reactive Protein NT-Pro-B Natriuret Pep Total Protein Albumin LDL Cholesterol Direct Vitamin B12 Fluid Glucose Fluid Total Protein Vancomycin Trough Crossmatch 11/22/21 11/22/21 11/22/21 07:07 07:07 23:54 WBC RBC 3.30 L Hgb 9.0 L Hct 28.5 L MCV MCH 27 L MCHC RDW 21.0 H Plt Count Seg Neuts % (Manual) Lymphocytes % (Manual) Seg Neutrophils # Man Lymphocytes # (Manual) Monocytes # (Manual) PT INR D-Dimer ABG pH ABG pO2 ABG HCO3 ABG O2 Saturation ABG Base Excess ABG Hemoglobin Oxyhemoglobin Sodium Potassium Chloride Carbon Dioxide BUN 32 H Creatinine Glucose 106 H POC Glucose 110 H Lactic Acid Calcium 7.5 L Phosphorus Magnesium AST ALT Alkaline Phosphatase Lactate Dehydrogenase Troponin T C-Reactive Protein NT-Pro-B Natriuret Pep Total Protein Albumin LDL Cholesterol Direct Vitamin B12 Fluid Glucose Fluid Total Protein Vancomycin Trough Crossmatch 11/23/21 11/23/21 11/23/21 04:38 04:38 06:01 WBC RBC 3.23 L Hgb 8.8 L Hct 28.0 L MCV MCH 27 L MCHC RDW 21.3 H Plt Count Seg Neuts % (Manual) Lymphocytes % (Manual) Seg Neutrophils # Man Lymphocytes # (Manual) Monocytes # (Manual) PT INR D-Dimer ABG pH ABG pO2 ABG HCO3 ABG O2 Saturation ABG Base Excess ABG Hemoglobin Oxyhemoglobin Sodium 136 L Potassium Chloride Carbon Dioxide 20 L BUN 32 H Creatinine Glucose 109 H POC Glucose 115 H Lactic Acid Calcium 7.7 L Phosphorus Magnesium AST ALT Alkaline Phosphatase Lactate Dehydrogenase Troponin T C-Reactive Protein NT-Pro-B Natriuret Pep Total Protein Albumin LDL Cholesterol Direct Vitamin B12 Fluid Glucose Fluid Total Protein Vancomycin Trough Crossmatch 11/23/21 11/24/21 11/24/21 11:40 00:03 04:13 WBC RBC 3.18 L Hgb 8.5 L Hct 27.5 L MCV MCH 27 L MCHC RDW 21.6 H Plt Count Seg Neuts % (Manual) Lymphocytes % (Manual) Seg Neutrophils # Man Lymphocytes # (Manual) Monocytes # (Manual) PT INR D-Dimer ABG pH ABG pO2 ABG HCO3 ABG O2 Saturation ABG Base Excess ABG Hemoglobin Oxyhemoglobin Sodium Potassium Chloride Carbon Dioxide BUN Creatinine Glucose POC Glucose 117 H 111 H Lactic Acid Calcium Phosphorus Magnesium AST ALT Alkaline Phosphatase Lactate Dehydrogenase Troponin T C-Reactive Protein NT-Pro-B Natriuret Pep Total Protein Albumin LDL Cholesterol Direct Vitamin B12 Fluid Glucose Fluid Total Protein Vancomycin Trough Crossmatch 11/24/21 11/24/21 11/24/21 04:13 05:30 11:10 WBC RBC Hgb Hct MCV MCH MCHC RDW Plt Count Seg Neuts % (Manual) Lymphocytes % (Manual) Seg Neutrophils # Man Lymphocytes # (Manual) Monocytes # (Manual) PT INR D-Dimer ABG pH ABG pO2 ABG HCO3 ABG O2 Saturation ABG Base Excess ABG Hemoglobin Oxyhemoglobin Sodium Potassium Chloride Carbon Dioxide BUN 31 H Creatinine Glucose 101 H POC Glucose 115 H 107 H Lactic Acid Calcium 7.7 L Phosphorus Magnesium AST ALT Alkaline Phosphatase Lactate Dehydrogenase Troponin T C-Reactive Protein NT-Pro-B Natriuret Pep Total Protein Albumin LDL Cholesterol Direct Vitamin B12 Fluid Glucose Fluid Total Protein Vancomycin Trough Crossmatch 11/24/21 11/24/21 11/25/21 16:34 17:57 05:12 WBC RBC 3.11 L Hgb 8.2 L Hct 26.6 L MCV MCH 26 L MCHC RDW 21.3 H Plt Count Seg Neuts % (Manual) Lymphocytes % (Manual) Seg Neutrophils # Man Lymphocytes # (Manual) Monocytes # (Manual) PT INR D-Dimer ABG pH ABG pO2 ABG HCO3 ABG O2 Saturation ABG Base Excess ABG Hemoglobin Oxyhemoglobin Sodium Potassium Chloride Carbon Dioxide BUN Creatinine Glucose POC Glucose 115 H 110 H Lactic Acid Calcium Phosphorus Magnesium AST ALT Alkaline Phosphatase Lactate Dehydrogenase Troponin T C-Reactive Protein NT-Pro-B Natriuret Pep Total Protein Albumin LDL Cholesterol Direct Vitamin B12 Fluid Glucose Fluid Total Protein Vancomycin Trough Crossmatch 11/25/21 11/25/21 11/26/21 05:12 11:20 05:00 WBC RBC 3.30 L Hgb 8.8 L Hct 28.2 L MCV MCH 27 L MCHC RDW 20.7 H Plt Count Seg Neuts % (Manual) Lymphocytes % (Manual) Seg Neutrophils # Man Lymphocytes # (Manual) Monocytes # (Manual) PT INR D-Dimer ABG pH ABG pO2 ABG HCO3 ABG O2 Saturation ABG Base Excess ABG Hemoglobin Oxyhemoglobin Sodium Potassium Chloride Carbon Dioxide BUN 32 H Creatinine Glucose 118 H POC Glucose 118 H Lactic Acid Calcium 8.2 L Phosphorus Magnesium AST ALT Alkaline Phosphatase Lactate Dehydrogenase Troponin T C-Reactive Protein NT-Pro-B Natriuret Pep Total Protein Albumin LDL Cholesterol Direct Vitamin B12 Fluid Glucose Fluid Total Protein Vancomycin Trough Crossmatch 11/26/21 11/26/21 11/26/21 05:00 05:00 05:44 WBC RBC Hgb Hct MCV MCH MCHC RDW Plt Count Seg Neuts % (Manual) Lymphocytes % (Manual) Seg Neutrophils # Man Lymphocytes # (Manual) Monocytes # (Manual) PT 16.9 H INR 1.24 H D-Dimer ABG pH ABG pO2 ABG HCO3 ABG O2 Saturation ABG Base Excess ABG Hemoglobin Oxyhemoglobin Sodium Potassium Chloride Carbon Dioxide BUN 31 H Creatinine Glucose 104 H POC Glucose 110 H Lactic Acid Calcium 7.9 L Phosphorus Magnesium AST ALT Alkaline Phosphatase Lactate Dehydrogenase Troponin T C-Reactive Protein NT-Pro-B Natriuret Pep Total Protein Albumin LDL Cholesterol Direct Vitamin B12 Fluid Glucose Fluid Total Protein Vancomycin Trough Crossmatch 11/26/21 11/27/21 11/27/21 23:55 07:40 07:40 WBC RBC 3.18 L Hgb 8.5 L Hct 27.0 L MCV MCH 27 L MCHC RDW 21.2 H Plt Count Seg Neuts % (Manual) Lymphocytes % (Manual) Seg Neutrophils # Man Lymphocytes # (Manual) Monocytes # (Manual) PT INR D-Dimer ABG pH ABG pO2 ABG HCO3 ABG O2 Saturation ABG Base Excess ABG Hemoglobin Oxyhemoglobin Sodium Potassium Chloride Carbon Dioxide BUN 27 H Creatinine Glucose 112 H POC Glucose 63 L Lactic Acid Calcium 7.6 L Phosphorus Magnesium AST ALT Alkaline Phosphatase Lactate Dehydrogenase Troponin T C-Reactive Protein NT-Pro-B Natriuret Pep Total Protein Albumin LDL Cholesterol Direct Vitamin B12 Fluid Glucose Fluid Total Protein Vancomycin Trough Crossmatch 11/27/21 11/27/21 11/27/21 12:04 13:40 13:40 WBC RBC 3.31 L Hgb 8.7 L Hct 28.0 L MCV MCH 26 L MCHC RDW 20.7 H Plt Count Seg Neuts % (Manual) Lymphocytes % (Manual) Seg Neutrophils # Man Lymphocytes # (Manual) Monocytes # (Manual) PT INR D-Dimer ABG pH ABG pO2 ABG HCO3 ABG O2 Saturation ABG Base Excess ABG Hemoglobin Oxyhemoglobin Sodium 136 L Potassium Chloride Carbon Dioxide BUN 25 H Creatinine Glucose 127 H POC Glucose 109 H Lactic Acid Calcium 7.6 L Phosphorus Magnesium 1.40 L AST ALT Alkaline Phosphatase Lactate Dehydrogenase Troponin T C-Reactive Protein NT-Pro-B Natriuret Pep Total Protein Albumin LDL Cholesterol Direct Vitamin B12 Fluid Glucose Fluid Total Protein Vancomycin Trough Crossmatch 11/27/21 11/27/21 11/28/21 17:44 23:33 12:20 WBC RBC Hgb Hct MCV MCH MCHC RDW Plt Count Seg Neuts % (Manual) Lymphocytes % (Manual) Seg Neutrophils # Man Lymphocytes # (Manual) Monocytes # (Manual) PT INR D-Dimer ABG pH ABG pO2 ABG HCO3 ABG O2 Saturation ABG Base Excess ABG Hemoglobin Oxyhemoglobin Sodium Potassium Chloride Carbon Dioxide BUN Creatinine Glucose POC Glucose 107 H 108 H 114 H Lactic Acid Calcium Phosphorus Magnesium AST ALT Alkaline Phosphatase Lactate Dehydrogenase Troponin T C-Reactive Protein NT-Pro-B Natriuret Pep Total Protein Albumin LDL Cholesterol Direct Vitamin B12 Fluid Glucose Fluid Total Protein Vancomycin Trough Crossmatch 11/29/21 11/29/21 11/29/21 00:09 03:20 03:20 WBC RBC 3.05 L Hgb 8.2 L Hct 25.8 L MCV MCH 27 L MCHC RDW 20.9 H Plt Count Seg Neuts % (Manual) Lymphocytes % (Manual) Seg Neutrophils # Man Lymphocytes # (Manual) Monocytes # (Manual) PT INR D-Dimer ABG pH ABG pO2 ABG HCO3 ABG O2 Saturation ABG Base Excess ABG Hemoglobin Oxyhemoglobin Sodium 133 L Potassium Chloride Carbon Dioxide BUN 24 H Creatinine Glucose 137 H POC Glucose 134 H Lactic Acid Calcium 7.4 L Phosphorus Magnesium AST ALT Alkaline Phosphatase Lactate Dehydrogenase Troponin T C-Reactive Protein NT-Pro-B Natriuret Pep Total Protein Albumin LDL Cholesterol Direct Vitamin B12 Fluid Glucose Fluid Total Protein Vancomycin Trough Crossmatch 11/29/21 11/29/21 11/29/21 05:38 11:39 17:11 WBC RBC Hgb Hct MCV MCH MCHC RDW Plt Count Seg Neuts % (Manual) Lymphocytes % (Manual) Seg Neutrophils # Man Lymphocytes # (Manual) Monocytes # (Manual) PT INR D-Dimer ABG pH ABG pO2 ABG HCO3 ABG O2 Saturation ABG Base Excess ABG Hemoglobin Oxyhemoglobin Sodium Potassium Chloride Carbon Dioxide BUN Creatinine Glucose POC Glucose 117 H 143 H 124 H Lactic Acid Calcium Phosphorus Magnesium AST ALT Alkaline Phosphatase Lactate Dehydrogenase Troponin T C-Reactive Protein NT-Pro-B Natriuret Pep Total Protein Albumin LDL Cholesterol Direct Vitamin B12 Fluid Glucose Fluid Total Protein Vancomycin Trough Crossmatch 11/29/21 11/30/21 11/30/21 20:15 05:40 05:40 WBC 12.6 H RBC 3.41 L Hgb 9.1 L Hct 28.9 L MCV MCH 27 L MCHC RDW 20.4 H Plt Count Seg Neuts % (Manual) Lymphocytes % (Manual) Seg Neutrophils # Man Lymphocytes # (Manual) Monocytes # (Manual) PT INR D-Dimer ABG pH ABG pO2 ABG HCO3 ABG O2 Saturation ABG Base Excess ABG Hemoglobin Oxyhemoglobin Sodium Potassium Chloride Carbon Dioxide BUN 24 H Creatinine Glucose 131 H POC Glucose Lactic Acid Calcium 7.6 L Phosphorus Magnesium AST ALT Alkaline Phosphatase Lactate Dehydrogenase Troponin T 0.045 H C-Reactive Protein NT-Pro-B Natriuret Pep Total Protein Albumin LDL Cholesterol Direct 25 L Vitamin B12 Fluid Glucose Fluid Total Protein Vancomycin Trough Crossmatch 11/30/21 11/30/21 12/01/21 11:29 16:51 05:00 WBC RBC 2.97 L Hgb 8.0 L Hct 25.0 L MCV MCH 27 L MCHC RDW 20.8 H Plt Count Seg Neuts % (Manual) Lymphocytes % (Manual) Seg Neutrophils # Man Lymphocytes # (Manual) Monocytes # (Manual) PT INR D-Dimer ABG pH ABG pO2 ABG HCO3 ABG O2 Saturation ABG Base Excess ABG Hemoglobin Oxyhemoglobin Sodium Potassium Chloride Carbon Dioxide BUN Creatinine Glucose POC Glucose 123 H 114 H Lactic Acid Calcium Phosphorus Magnesium AST ALT Alkaline Phosphatase Lactate Dehydrogenase Troponin T C-Reactive Protein NT-Pro-B Natriuret Pep Total Protein Albumin LDL Cholesterol Direct Vitamin B12 Fluid Glucose Fluid Total Protein Vancomycin Trough Crossmatch 12/01/21 12/01/21 12/01/21 05:00 05:25 11:54 WBC RBC Hgb Hct MCV MCH MCHC RDW Plt Count Seg Neuts % (Manual) Lymphocytes % (Manual) Seg Neutrophils # Man Lymphocytes # (Manual) Monocytes # (Manual) PT INR D-Dimer ABG pH ABG pO2 ABG HCO3 ABG O2 Saturation ABG Base Excess ABG Hemoglobin Oxyhemoglobin Sodium 136 L Potassium Chloride Carbon Dioxide BUN 24 H Creatinine Glucose 117 H POC Glucose 108 H 107 H Lactic Acid Calcium 7.5 L Phosphorus Magnesium 1.60 L AST ALT Alkaline Phosphatase Lactate Dehydrogenase Troponin T C-Reactive Protein NT-Pro-B Natriuret Pep Total Protein Albumin LDL Cholesterol Direct Vitamin B12 Fluid Glucose Fluid Total Protein Vancomycin Trough Crossmatch 12/01/21 12/02/21 12/02/21 17:40 00:07 04:20 WBC RBC 2.92 L Hgb 7.7 L Hct 24.3 L MCV MCH 26 L MCHC RDW 20.5 H Plt Count Seg Neuts % (Manual) Lymphocytes % (Manual) Seg Neutrophils # Man Lymphocytes # (Manual) Monocytes # (Manual) PT INR D-Dimer ABG pH ABG pO2 ABG HCO3 ABG O2 Saturation ABG Base Excess ABG Hemoglobin Oxyhemoglobin Sodium Potassium Chloride Carbon Dioxide BUN Creatinine Glucose POC Glucose 123 H 110 H Lactic Acid Calcium Phosphorus Magnesium AST ALT Alkaline Phosphatase Lactate Dehydrogenase Troponin T C-Reactive Protein NT-Pro-B Natriuret Pep Total Protein Albumin LDL Cholesterol Direct Vitamin B12 Fluid Glucose Fluid Total Protein Vancomycin Trough Crossmatch 12/02/21 12/02/21 12/02/21 04:20 11:17 18:20 WBC RBC Hgb Hct MCV MCH MCHC RDW Plt Count Seg Neuts % (Manual) Lymphocytes % (Manual) Seg Neutrophils # Man Lymphocytes # (Manual) Monocytes # (Manual) PT INR D-Dimer ABG pH ABG pO2 ABG HCO3 ABG O2 Saturation ABG Base Excess ABG Hemoglobin Oxyhemoglobin Sodium 135 L Potassium Chloride Carbon Dioxide BUN 26 H Creatinine Glucose 121 H POC Glucose 117 H 113 H Lactic Acid Calcium 7.4 L Phosphorus Magnesium AST ALT Alkaline Phosphatase Lactate Dehydrogenase Troponin T C-Reactive Protein NT-Pro-B Natriuret Pep Total Protein Albumin LDL Cholesterol Direct Vitamin B12 Fluid Glucose Fluid Total Protein Vancomycin Trough Crossmatch 12/03/21 12/03/21 12/03/21 00:12 04:00 04:00 WBC RBC 2.99 L Hgb 7.8 L Hct 24.6 L MCV MCH 26 L MCHC RDW 20.2 H Plt Count Seg Neuts % (Manual) Lymphocytes % (Manual) Seg Neutrophils # Man Lymphocytes # (Manual) Monocytes # (Manual) PT INR D-Dimer ABG pH ABG pO2 ABG HCO3 ABG O2 Saturation ABG Base Excess ABG Hemoglobin Oxyhemoglobin Sodium 136 L Potassium Chloride Carbon Dioxide BUN 27 H Creatinine Glucose 133 H POC Glucose 121 H Lactic Acid Calcium 7.5 L Phosphorus Magnesium AST ALT Alkaline Phosphatase Lactate Dehydrogenase Troponin T C-Reactive Protein NT-Pro-B Natriuret Pep Total Protein Albumin LDL Cholesterol Direct Vitamin B12 Fluid Glucose Fluid Total Protein Vancomycin Trough Crossmatch 12/03/21 12/03/21 12/03/21 06:30 11:13 16:00 WBC RBC Hgb Hct MCV MCH MCHC RDW Plt Count Seg Neuts % (Manual) Lymphocytes % (Manual) Seg Neutrophils # Man Lymphocytes # (Manual) Monocytes # (Manual) PT INR D-Dimer ABG pH ABG pO2 ABG HCO3 ABG O2 Saturation ABG Base Excess ABG Hemoglobin Oxyhemoglobin Sodium Potassium Chloride Carbon Dioxide BUN Creatinine Glucose POC Glucose 129 H 125 H 125 H Lactic Acid Calcium Phosphorus Magnesium AST ALT Alkaline Phosphatase Lactate Dehydrogenase Troponin T C-Reactive Protein NT-Pro-B Natriuret Pep Total Protein Albumin LDL Cholesterol Direct Vitamin B12 Fluid Glucose Fluid Total Protein Vancomycin Trough Crossmatch 12/03/21 12/04/21 12/04/21 23:32 04:00 05:36 WBC RBC Hgb Hct MCV MCH MCHC RDW Plt Count Seg Neuts % (Manual) Lymphocytes % (Manual) Seg Neutrophils # Man Lymphocytes # (Manual) Monocytes # (Manual) PT INR D-Dimer ABG pH ABG pO2 ABG HCO3 ABG O2 Saturation ABG Base Excess ABG Hemoglobin Oxyhemoglobin Sodium Potassium 3.5 L Chloride Carbon Dioxide BUN 26 H Creatinine 0.5 L Glucose 151 H POC Glucose 133 H 142 H Lactic Acid Calcium 8.3 L Phosphorus Magnesium AST ALT Alkaline Phosphatase Lactate Dehydrogenase Troponin T C-Reactive Protein NT-Pro-B Natriuret Pep Total Protein Albumin LDL Cholesterol Direct Vitamin B12 Fluid Glucose Fluid Total Protein Vancomycin Trough Crossmatch 12/04/21 12/04/21 12/05/21 11:24 15:58 04:36 WBC RBC Hgb Hct MCV MCH MCHC RDW Plt Count Seg Neuts % (Manual) Lymphocytes % (Manual) Seg Neutrophils # Man Lymphocytes # (Manual) Monocytes # (Manual) PT INR D-Dimer ABG pH ABG pO2 ABG HCO3 ABG O2 Saturation ABG Base Excess ABG Hemoglobin Oxyhemoglobin Sodium Potassium Chloride Carbon Dioxide BUN 21 H Creatinine 0.5 L Glucose 119 H POC Glucose 130 H 111 H Lactic Acid Calcium 8.3 L Phosphorus Magnesium AST ALT Alkaline Phosphatase Lactate Dehydrogenase Troponin T C-Reactive Protein NT-Pro-B Natriuret Pep Total Protein Albumin LDL Cholesterol Direct Vitamin B12 Fluid Glucose Fluid Total Protein Vancomycin Trough Crossmatch 12/05/21 12/05/21 12/05/21 05:15 10:40 11:12 WBC RBC 2.98 L Hgb 8.1 L Hct 24.6 L MCV MCH 27 L MCHC RDW 20.8 H Plt Count Seg Neuts % (Manual) Lymphocytes % (Manual) Seg Neutrophils # Man Lymphocytes # (Manual) Monocytes # (Manual) PT INR D-Dimer ABG pH ABG pO2 ABG HCO3 ABG O2 Saturation ABG Base Excess ABG Hemoglobin Oxyhemoglobin Sodium Potassium Chloride Carbon Dioxide BUN Creatinine Glucose POC Glucose 107 H 110 H Lactic Acid Calcium Phosphorus Magnesium AST ALT Alkaline Phosphatase Lactate Dehydrogenase Troponin T C-Reactive Protein NT-Pro-B Natriuret Pep Total Protein Albumin LDL Cholesterol Direct Vitamin B12 Fluid Glucose Fluid Total Protein Vancomycin Trough Crossmatch 0212/06/21 12/06/21 23:39 04:25 04:25 WBC RBC 2.95 L Hgb 7.9 L Hct 24.7 L MCV MCH 27 L MCHC RDW 20.9 H Plt Count Seg Neuts % (Manual) Lymphocytes % (Manual) Seg Neutrophils # Man Lymphocytes # (Manual) Monocytes # (Manual) PT INR D-Dimer ABG pH ABG pO2 ABG HCO3 ABG O2 Saturation ABG Base Excess ABG Hemoglobin Oxyhemoglobin Sodium Potassium Chloride Carbon Dioxide BUN 22 H Creatinine 0.5 L Glucose 136 H POC Glucose 118 H Lactic Acid Calcium 8.2 L Phosphorus Magnesium AST ALT Alkaline Phosphatase Lactate Dehydrogenase Troponin T C-Reactive Protein NT-Pro-B Natriuret Pep Total Protein Albumin LDL Cholesterol Direct Vitamin B12 Fluid Glucose Fluid Total Protein Vancomycin Trough Crossmatch 12/06/21 12/06/21 12/07/21 05:28 11:27 04:00 WBC RBC Hgb 7.2 L Hct 21.8 L MCV MCH MCHC RDW Plt Count Seg Neuts % (Manual) Lymphocytes % (Manual) Seg Neutrophils # Man Lymphocytes # (Manual) Monocytes # (Manual) PT INR D-Dimer ABG pH ABG pO2 ABG HCO3 ABG O2 Saturation ABG Base Excess ABG Hemoglobin Oxyhemoglobin Sodium Potassium Chloride Carbon Dioxide BUN Creatinine Glucose POC Glucose 142 H 126 H Lactic Acid Calcium Phosphorus Magnesium AST ALT Alkaline Phosphatase Lactate Dehydrogenase Troponin T C-Reactive Protein NT-Pro-B Natriuret Pep Total Protein Albumin LDL Cholesterol Direct Vitamin B12 Fluid Glucose Fluid Total Protein Vancomycin Trough Crossmatch 12/07/21 12/07/21 12/07/21 04:00 05:30 11:12 WBC RBC Hgb Hct MCV MCH MCHC RDW Plt Count Seg Neuts % (Manual) Lymphocytes % (Manual) Seg Neutrophils # Man Lymphocytes # (Manual) Monocytes # (Manual) PT INR D-Dimer ABG pH ABG pO2 ABG HCO3 ABG O2 Saturation ABG Base Excess ABG Hemoglobin Oxyhemoglobin Sodium Potassium Chloride Carbon Dioxide BUN 22 H Creatinine Glucose 119 H POC Glucose 121 H 124 H Lactic Acid Calcium 8.0 L Phosphorus Magnesium AST ALT Alkaline Phosphatase Lactate Dehydrogenase Troponin T C-Reactive Protein NT-Pro-B Natriuret Pep Total Protein Albumin LDL Cholesterol Direct Vitamin B12 Fluid Glucose Fluid Total Protein Vancomycin Trough Crossmatch 12/08/21 12/08/21 12/08/21 04:00 04:00 05:39 WBC RBC 2.81 L Hgb 7.7 L Hct 23.5 L MCV MCH MCHC RDW 21.2 H Plt Count Seg Neuts % (Manual) Lymphocytes % (Manual) Seg Neutrophils # Man Lymphocytes # (Manual) Monocytes # (Manual) PT INR D-Dimer ABG pH ABG pO2 ABG HCO3 ABG O2 Saturation ABG Base Excess ABG Hemoglobin Oxyhemoglobin Sodium 135 L Potassium Chloride Carbon Dioxide BUN 23 H Creatinine Glucose 109 H POC Glucose 112 H Lactic Acid Calcium Phosphorus Magnesium AST ALT Alkaline Phosphatase Lactate Dehydrogenase Troponin T C-Reactive Protein NT-Pro-B Natriuret Pep Total Protein Albumin LDL Cholesterol Direct Vitamin B12 Fluid Glucose Fluid Total Protein Vancomycin Trough Crossmatch 12/08/21 12/09/21 12/09/21 11:03 04:20 04:20 WBC RBC 2.67 L Hgb 7.6 L Hct 22.1 L MCV MCH MCHC RDW 20.8 H Plt Count Seg Neuts % (Manual) Lymphocytes % (Manual) Seg Neutrophils # Man Lymphocytes # (Manual) Monocytes # (Manual) PT INR D-Dimer ABG pH ABG pO2 ABG HCO3 ABG O2 Saturation ABG Base Excess ABG Hemoglobin Oxyhemoglobin Sodium 135 L Potassium Chloride 97.8 L Carbon Dioxide BUN 26 H Creatinine Glucose 119 H POC Glucose 108 H Lactic Acid Calcium 7.7 L Phosphorus Magnesium AST ALT Alkaline Phosphatase Lactate Dehydrogenase Troponin T C-Reactive Protein NT-Pro-B Natriuret Pep Total Protein Albumin LDL Cholesterol Direct Vitamin B12 Fluid Glucose Fluid Total Protein Vancomycin Trough Crossmatch 12/09/21 12/10/21 12/10/21 11:26 04:33 11:12 WBC RBC Hgb Hct MCV MCH MCHC RDW Plt Count Seg Neuts % (Manual) Lymphocytes % (Manual) Seg Neutrophils # Man Lymphocytes # (Manual) Monocytes # (Manual) PT INR D-Dimer ABG pH ABG pO2 ABG HCO3 ABG O2 Saturation ABG Base Excess ABG Hemoglobin Oxyhemoglobin Sodium 136 L Potassium Chloride Carbon Dioxide BUN 27 H Creatinine Glucose 117 H POC Glucose 110 H 117 H Lactic Acid Calcium 8.2 L Phosphorus Magnesium AST ALT Alkaline Phosphatase Lactate Dehydrogenase Troponin T C-Reactive Protein NT-Pro-B Natriuret Pep Total Protein Albumin LDL Cholesterol Direct Vitamin B12 Fluid Glucose Fluid Total Protein Vancomycin Trough Crossmatch 12/10/21 12/10/21 12/11/21 16:02 23:31 04:35 WBC RBC 2.57 L Hgb 7.0 L Hct 21.4 L MCV MCH 27 L MCHC RDW 21.1 H Plt Count Seg Neuts % (Manual) Lymphocytes % (Manual) Seg Neutrophils # Man Lymphocytes # (Manual) Monocytes # (Manual) PT INR D-Dimer ABG pH ABG pO2 ABG HCO3 ABG O2 Saturation ABG Base Excess ABG Hemoglobin Oxyhemoglobin Sodium Potassium Chloride Carbon Dioxide BUN Creatinine Glucose POC Glucose 137 H 111 H Lactic Acid Calcium Phosphorus Magnesium AST ALT Alkaline Phosphatase Lactate Dehydrogenase Troponin T C-Reactive Protein NT-Pro-B Natriuret Pep Total Protein Albumin LDL Cholesterol Direct Vitamin B12 Fluid Glucose Fluid Total Protein Vancomycin Trough Crossmatch 12/11/21 12/11/21 12/11/21 04:35 12:46 16:07 WBC RBC Hgb Hct MCV MCH MCHC RDW Plt Count Seg Neuts % (Manual) Lymphocytes % (Manual) Seg Neutrophils # Man Lymphocytes # (Manual) Monocytes # (Manual) PT INR D-Dimer ABG pH ABG pO2 ABG HCO3 ABG O2 Saturation ABG Base Excess ABG Hemoglobin Oxyhemoglobin Sodium 136 L Potassium Chloride Carbon Dioxide BUN 27 H Creatinine Glucose 112 H POC Glucose 115 H 111 H Lactic Acid Calcium 7.6 L Phosphorus Magnesium AST ALT Alkaline Phosphatase Lactate Dehydrogenase Troponin T C-Reactive Protein NT-Pro-B Natriuret Pep Total Protein Albumin LDL Cholesterol Direct Vitamin B12 Fluid Glucose Fluid Total Protein Vancomycin Trough Crossmatch 12/11/21 12/12/21 12/12/21 23:42 04:30 04:30 WBC RBC 2.60 L Hgb 7.1 L Hct 21.5 L MCV MCH 27 L MCHC RDW 20.3 H Plt Count Seg Neuts % (Manual) Lymphocytes % (Manual) Seg Neutrophils # Man Lymphocytes # (Manual) Monocytes # (Manual) PT INR D-Dimer ABG pH ABG pO2 ABG HCO3 ABG O2 Saturation ABG Base Excess ABG Hemoglobin Oxyhemoglobin Sodium 135 L Potassium Chloride 97.9 L Carbon Dioxide BUN 26 H Creatinine 0.5 L Glucose 138 H POC Glucose 115 H Lactic Acid Calcium 8.2 L Phosphorus Magnesium AST ALT Alkaline Phosphatase Lactate Dehydrogenase Troponin T C-Reactive Protein NT-Pro-B Natriuret Pep Total Protein Albumin LDL Cholesterol Direct Vitamin B12 Fluid Glucose Fluid Total Protein Vancomycin Trough Crossmatch 12/12/21 12/12/21 12/12/21 04:30 05:10 11:51 WBC RBC Hgb Hct MCV MCH MCHC RDW Plt Count Seg Neuts % (Manual) Lymphocytes % (Manual) Seg Neutrophils # Man Lymphocytes # (Manual) Monocytes # (Manual) PT INR D-Dimer ABG pH ABG pO2 ABG HCO3 ABG O2 Saturation ABG Base Excess ABG Hemoglobin Oxyhemoglobin Sodium Potassium Chloride Carbon Dioxide BUN Creatinine Glucose POC Glucose 119 H 119 H Lactic Acid Calcium Phosphorus Magnesium AST ALT Alkaline Phosphatase Lactate Dehydrogenase Troponin T C-Reactive Protein NT-Pro-B Natriuret Pep Total Protein Albumin LDL Cholesterol Direct Vitamin B12 Fluid Glucose Fluid Total Protein Vancomycin Trough Crossmatch See Detail 12/13/21 12/13/21 12/13/21 00:52 04:00 04:00 WBC RBC 2.73 L Hgb 7.4 L Hct 22.8 L MCV MCH 27 L MCHC RDW 20.5 H Plt Count Seg Neuts % (Manual) Lymphocytes % (Manual) Seg Neutrophils # Man Lymphocytes # (Manual) Monocytes # (Manual) PT INR D-Dimer ABG pH ABG pO2 ABG HCO3 ABG O2 Saturation ABG Base Excess ABG Hemoglobin Oxyhemoglobin Sodium 134 L Potassium Chloride 96.7 L Carbon Dioxide BUN 23 H Creatinine 0.5 L Glucose 131 H POC Glucose 131 H Lactic Acid Calcium 8.1 L Phosphorus Magnesium AST ALT Alkaline Phosphatase Lactate Dehydrogenase Troponin T C-Reactive Protein NT-Pro-B Natriuret Pep Total Protein Albumin LDL Cholesterol Direct Vitamin B12 Fluid Glucose Fluid Total Protein Vancomycin Trough Crossmatch 12/13/21 12/13/21 12/13/21 05:23 12:11 17:18 WBC RBC Hgb Hct MCV MCH MCHC RDW Plt Count Seg Neuts % (Manual) Lymphocytes % (Manual) Seg Neutrophils # Man Lymphocytes # (Manual) Monocytes # (Manual) PT INR D-Dimer ABG pH ABG pO2 ABG HCO3 ABG O2 Saturation ABG Base Excess ABG Hemoglobin Oxyhemoglobin Sodium Potassium Chloride Carbon Dioxide BUN Creatinine Glucose POC Glucose 121 H 143 H 148 H Lactic Acid Calcium Phosphorus Magnesium AST ALT Alkaline Phosphatase Lactate Dehydrogenase Troponin T C-Reactive Protein NT-Pro-B Natriuret Pep Total Protein Albumin LDL Cholesterol Direct Vitamin B12 Fluid Glucose Fluid Total Protein Vancomycin Trough Crossmatch 12/14/21 12/14/21 12/14/21 00:54 04:20 04:20 WBC RBC 2.39 L Hgb 6.5 L Hct 20.3 L MCV MCH 27 L MCHC RDW 20.3 H Plt Count Seg Neuts % (Manual) Lymphocytes % (Manual) Seg Neutrophils # Man Lymphocytes # (Manual) Monocytes # (Manual) PT INR D-Dimer ABG pH ABG pO2 ABG HCO3 ABG O2 Saturation ABG Base Excess ABG Hemoglobin Oxyhemoglobin Sodium 130 L Potassium Chloride 93.5 L Carbon Dioxide BUN 25 H Creatinine Glucose 123 H POC Glucose 123 H Lactic Acid Calcium 8.0 L Phosphorus Magnesium AST ALT Alkaline Phosphatase Lactate Dehydrogenase Troponin T C-Reactive Protein NT-Pro-B Natriuret Pep Total Protein Albumin LDL Cholesterol Direct Vitamin B12 Fluid Glucose Fluid Total Protein Vancomycin Trough Crossmatch 12/14/21 12/14/21 12/14/21 05:06 08:17 10:30 WBC RBC Hgb Hct MCV MCH MCHC RDW Plt Count Seg Neuts % (Manual) Lymphocytes % (Manual) Seg Neutrophils # Man Lymphocytes # (Manual) Monocytes # (Manual) PT INR D-Dimer ABG pH ABG pO2 ABG HCO3 ABG O2 Saturation ABG Base Excess ABG Hemoglobin Oxyhemoglobin Sodium Potassium Chloride Carbon Dioxide BUN Creatinine Glucose POC Glucose 131 H 119 H Lactic Acid Calcium Phosphorus Magnesium AST ALT Alkaline Phosphatase Lactate Dehydrogenase Troponin T C-Reactive Protein NT-Pro-B Natriuret Pep Total Protein Albumin LDL Cholesterol Direct Vitamin B12 Fluid Glucose Fluid Total Protein Vancomycin Trough Crossmatch See Detail 12/14/21 12/14/21 12/14/21 12:15 16:37 23:27 WBC RBC Hgb Hct MCV MCH MCHC RDW Plt Count Seg Neuts % (Manual) Lymphocytes % (Manual) Seg Neutrophils # Man Lymphocytes # (Manual) Monocytes # (Manual) PT INR D-Dimer ABG pH ABG pO2 ABG HCO3 ABG O2 Saturation ABG Base Excess ABG Hemoglobin Oxyhemoglobin Sodium Potassium Chloride Carbon Dioxide BUN Creatinine Glucose POC Glucose 147 H 141 H 130 H Lactic Acid Calcium Phosphorus Magnesium AST ALT Alkaline Phosphatase Lactate Dehydrogenase Troponin T C-Reactive Protein NT-Pro-B Natriuret Pep Total Protein Albumin LDL Cholesterol Direct Vitamin B12 Fluid Glucose Fluid Total Protein Vancomycin Trough Crossmatch 12/15/21 12/15/21 12/15/21 05:00 07:00 07:00 WBC 12.3 H RBC 3.27 L Hgb 8.8 L Hct 27.5 L D MCV MCH 27 L MCHC RDW 19.0 H Plt Count Seg Neuts % (Manual) Lymphocytes % (Manual) Seg Neutrophils # Man Lymphocytes # (Manual) Monocytes # (Manual) PT INR D-Dimer ABG pH ABG pO2 ABG HCO3 ABG O2 Saturation ABG Base Excess ABG Hemoglobin Oxyhemoglobin Sodium 134 L Potassium Chloride 95.7 L Carbon Dioxide BUN 28 H Creatinine Glucose 129 H POC Glucose 129 H Lactic Acid Calcium 8.2 L Phosphorus Magnesium AST ALT Alkaline Phosphatase Lactate Dehydrogenase Troponin T C-Reactive Protein NT-Pro-B Natriuret Pep Total Protein Albumin LDL Cholesterol Direct Vitamin B12 Fluid Glucose Fluid Total Protein Vancomycin Trough Crossmatch 12/15/21 12/15/21 12/15/21 11:18 16:00 23:39 WBC RBC Hgb Hct MCV MCH MCHC RDW Plt Count Seg Neuts % (Manual) Lymphocytes % (Manual) Seg Neutrophils # Man Lymphocytes # (Manual) Monocytes # (Manual) PT INR D-Dimer ABG pH ABG pO2 ABG HCO3 ABG O2 Saturation ABG Base Excess ABG Hemoglobin Oxyhemoglobin Sodium Potassium Chloride Carbon Dioxide BUN Creatinine Glucose POC Glucose 139 H 137 H 146 H Lactic Acid Calcium Phosphorus Magnesium AST ALT Alkaline Phosphatase Lactate Dehydrogenase Troponin T C-Reactive Protein NT-Pro-B Natriuret Pep Total Protein Albumin LDL Cholesterol Direct Vitamin B12 Fluid Glucose Fluid Total Protein Vancomycin Trough Crossmatch 12/16/21 12/16/21 12/16/21 05:24 10:21 10:21 WBC 15.3 H RBC 3.24 L Hgb 8.9 L Hct 27.7 L MCV MCH MCHC RDW 19.0 H Plt Count Seg Neuts % (Manual) Lymphocytes % (Manual) Seg Neutrophils # Man Lymphocytes # (Manual) Monocytes # (Manual) PT INR D-Dimer ABG pH ABG pO2 ABG HCO3 ABG O2 Saturation ABG Base Excess ABG Hemoglobin Oxyhemoglobin Sodium 131 L Potassium 3.5 L Chloride 92.7 L Carbon Dioxide BUN 36 H Creatinine Glucose 160 H POC Glucose 121 H Lactic Acid Calcium Phosphorus Magnesium 1.60 L AST ALT Alkaline Phosphatase Lactate Dehydrogenase Troponin T C-Reactive Protein NT-Pro-B Natriuret Pep Total Protein Albumin LDL Cholesterol Direct Vitamin B12 Fluid Glucose Fluid Total Protein Vancomycin Trough Crossmatch 12/16/21 12/16/21 12/16/21 11:21 18:28 20:52 WBC RBC Hgb Hct MCV MCH MCHC RDW Plt Count Seg Neuts % (Manual) Lymphocytes % (Manual) Seg Neutrophils # Man Lymphocytes # (Manual) Monocytes # (Manual) PT INR D-Dimer ABG pH 7.479 H ABG pO2 79.3 L ABG HCO3 27.3 H ABG O2 Saturation ABG Base Excess 3.6 H ABG Hemoglobin 9.1 L Oxyhemoglobin 94.9 L Sodium Potassium Chloride Carbon Dioxide BUN Creatinine Glucose POC Glucose 153 H 132 H Lactic Acid Calcium Phosphorus Magnesium AST ALT Alkaline Phosphatase Lactate Dehydrogenase Troponin T C-Reactive Protein NT-Pro-B Natriuret Pep Total Protein Albumin LDL Cholesterol Direct Vitamin B12 Fluid Glucose Fluid Total Protein Vancomycin Trough Crossmatch 12/16/21 12/17/21 12/17/21 23:30 04:25 04:25 WBC 12.3 H RBC 2.16 L Hgb 6.0 L Hct 18.1 L* D MCV MCH MCHC RDW 19.4 H Plt Count Seg Neuts % (Manual) Lymphocytes % (Manual) Seg Neutrophils # Man Lymphocytes # (Manual) Monocytes # (Manual) PT INR D-Dimer ABG pH ABG pO2 ABG HCO3 ABG O2 Saturation ABG Base Excess ABG Hemoglobin Oxyhemoglobin Sodium 132 L Potassium 3.2 L Chloride 112.0 H Carbon Dioxide BUN 32 H Creatinine Glucose 122 H POC Glucose 137 H Lactic Acid Calcium 6.8 L D Phosphorus Magnesium AST ALT Alkaline Phosphatase Lactate Dehydrogenase Troponin T C-Reactive Protein NT-Pro-B Natriuret Pep Total Protein Albumin LDL Cholesterol Direct Vitamin B12 Fluid Glucose Fluid Total Protein Vancomycin Trough Crossmatch 12/17/21 12/17/21 12/17/21 05:30 11:49 14:45 WBC RBC Hgb 9.7 L D Hct MCV MCH MCHC RDW Plt Count Seg Neuts % (Manual) Lymphocytes % (Manual) Seg Neutrophils # Man Lymphocytes # (Manual) Monocytes # (Manual) PT INR D-Dimer ABG pH ABG pO2 ABG HCO3 ABG O2 Saturation ABG Base Excess ABG Hemoglobin Oxyhemoglobin Sodium Potassium Chloride Carbon Dioxide BUN Creatinine Glucose POC Glucose 137 H 143 H Lactic Acid Calcium Phosphorus Magnesium AST ALT Alkaline Phosphatase Lactate Dehydrogenase Troponin T C-Reactive Protein NT-Pro-B Natriuret Pep Total Protein Albumin LDL Cholesterol Direct Vitamin B12 Fluid Glucose Fluid Total Protein Vancomycin Trough Crossmatch 12/17/21 12/18/21 12/18/21 17:01 05:04 05:04 WBC 13.8 H RBC 3.44 L Hgb 9.9 L Hct 28.8 L MCV MCH MCHC RDW 18.1 H Plt Count Seg Neuts % (Manual) Lymphocytes % (Manual) Seg Neutrophils # Man Lymphocytes # (Manual) Monocytes # (Manual) PT INR D-Dimer ABG pH ABG pO2 ABG HCO3 ABG O2 Saturation ABG Base Excess ABG Hemoglobin Oxyhemoglobin Sodium 132 L Potassium Chloride 97.4 L Carbon Dioxide BUN 38 H Creatinine Glucose 134 H POC Glucose 132 H Lactic Acid Calcium Phosphorus Magnesium AST ALT Alkaline Phosphatase Lactate Dehydrogenase Troponin T C-Reactive Protein NT-Pro-B Natriuret Pep Total Protein Albumin LDL Cholesterol Direct Vitamin B12 Fluid Glucose Fluid Total Protein Vancomycin Trough Crossmatch 12/18/21 12/18/21 12/18/21 05:28 10:57 16:27 WBC RBC Hgb Hct MCV MCH MCHC RDW Plt Count Seg Neuts % (Manual) Lymphocytes % (Manual) Seg Neutrophils # Man Lymphocytes # (Manual) Monocytes # (Manual) PT INR D-Dimer ABG pH ABG pO2 ABG HCO3 ABG O2 Saturation ABG Base Excess ABG Hemoglobin Oxyhemoglobin Sodium Potassium Chloride Carbon Dioxide BUN Creatinine Glucose POC Glucose 118 H 132 H 130 H Lactic Acid Calcium Phosphorus Magnesium AST ALT Alkaline Phosphatase Lactate Dehydrogenase Troponin T C-Reactive Protein NT-Pro-B Natriuret Pep Total Protein Albumin LDL Cholesterol Direct Vitamin B12 Fluid Glucose Fluid Total Protein Vancomycin Trough Crossmatch 12/19/21 12/19/21 12/19/21 00:02 04:41 04:41 WBC 16.0 H RBC 3.45 L Hgb 9.7 L Hct 29.1 L MCV MCH MCHC RDW 17.8 H Plt Count Seg Neuts % (Manual) Lymphocytes % (Manual) Seg Neutrophils # Man Lymphocytes # (Manual) Monocytes # (Manual) PT INR D-Dimer ABG pH ABG pO2 ABG HCO3 ABG O2 Saturation ABG Base Excess ABG Hemoglobin Oxyhemoglobin Sodium 133 L Potassium Chloride 97.9 L Carbon Dioxide BUN 36 H Creatinine 0.5 L Glucose 126 H POC Glucose 127 H Lactic Acid Calcium 8.3 L Phosphorus Magnesium AST ALT Alkaline Phosphatase Lactate Dehydrogenase Troponin T C-Reactive Protein NT-Pro-B Natriuret Pep Total Protein Albumin LDL Cholesterol Direct Vitamin B12 Fluid Glucose Fluid Total Protein Vancomycin Trough Crossmatch 12/19/21 12/19/21 12/19/21 05:26 12:20 16:43 WBC RBC Hgb Hct MCV MCH MCHC RDW Plt Count Seg Neuts % (Manual) Lymphocytes % (Manual) Seg Neutrophils # Man Lymphocytes # (Manual) Monocytes # (Manual) PT INR D-Dimer ABG pH ABG pO2 ABG HCO3 ABG O2 Saturation ABG Base Excess ABG Hemoglobin Oxyhemoglobin Sodium Potassium Chloride Carbon Dioxide BUN Creatinine Glucose POC Glucose 119 H 145 H 126 H Lactic Acid Calcium Phosphorus Magnesium AST ALT Alkaline Phosphatase Lactate Dehydrogenase Troponin T C-Reactive Protein NT-Pro-B Natriuret Pep Total Protein Albumin LDL Cholesterol Direct Vitamin B12 Fluid Glucose Fluid Total Protein Vancomycin Trough Crossmatch 12/19/21 12/20/21 12/20/21 23:30 04:54 04:54 WBC 12.3 H RBC 3.54 L Hgb 10.0 L Hct 29.5 L MCV MCH MCHC RDW 17.8 H Plt Count Seg Neuts % (Manual) 88.0 H Lymphocytes % (Manual) 6.0 L Seg Neutrophils # Man 10.8 H Lymphocytes # (Manual) 0.7 L Monocytes # (Manual) PT INR D-Dimer ABG pH ABG pO2 ABG HCO3 ABG O2 Saturation ABG Base Excess ABG Hemoglobin Oxyhemoglobin Sodium 131 L Potassium Chloride 96.2 L Carbon Dioxide BUN 36 H Creatinine 0.5 L Glucose 130 H POC Glucose 117 H Lactic Acid Calcium Phosphorus Magnesium AST ALT Alkaline Phosphatase Lactate Dehydrogenase Troponin T C-Reactive Protein NT-Pro-B Natriuret Pep Total Protein Albumin LDL Cholesterol Direct Vitamin B12 Fluid Glucose Fluid Total Protein Vancomycin Trough Crossmatch 12/20/21 12/20/21 12/20/21 05:20 11:51 17:30 WBC RBC Hgb Hct MCV MCH MCHC RDW Plt Count Seg Neuts % (Manual) Lymphocytes % (Manual) Seg Neutrophils # Man Lymphocytes # (Manual) Monocytes # (Manual) PT INR D-Dimer ABG pH ABG pO2 ABG HCO3 ABG O2 Saturation ABG Base Excess ABG Hemoglobin Oxyhemoglobin Sodium Potassium Chloride Carbon Dioxide BUN Creatinine Glucose POC Glucose 126 H 119 H 127 H Lactic Acid Calcium Phosphorus Magnesium AST ALT Alkaline Phosphatase Lactate Dehydrogenase Troponin T C-Reactive Protein NT-Pro-B Natriuret Pep Total Protein Albumin LDL Cholesterol Direct Vitamin B12 Fluid Glucose Fluid Total Protein Vancomycin Trough Crossmatch 12/21/21 12/21/21 12/21/21 00:45 04:21 04:21 WBC RBC 3.47 L Hgb 9.4 L Hct 29.2 L MCV MCH 27 L MCHC RDW 18.1 H Plt Count Seg Neuts % (Manual) Lymphocytes % (Manual) Seg Neutrophils # Man Lymphocytes # (Manual) Monocytes # (Manual) PT INR D-Dimer ABG pH ABG pO2 ABG HCO3 ABG O2 Saturation ABG Base Excess ABG Hemoglobin Oxyhemoglobin Sodium 134 L Potassium Chloride Carbon Dioxide BUN 35 H Creatinine 0.5 L Glucose 122 H POC Glucose 125 H Lactic Acid Calcium 8.2 L Phosphorus Magnesium AST ALT Alkaline Phosphatase Lactate Dehydrogenase Troponin T C-Reactive Protein NT-Pro-B Natriuret Pep Total Protein Albumin LDL Cholesterol Direct Vitamin B12 Fluid Glucose Fluid Total Protein Vancomycin Trough Crossmatch 12/21/21 12/21/21 12/21/21 05:38 11:29 16:16 WBC RBC Hgb Hct MCV MCH MCHC RDW Plt Count Seg Neuts % (Manual) Lymphocytes % (Manual) Seg Neutrophils # Man Lymphocytes # (Manual) Monocytes # (Manual) PT INR D-Dimer ABG pH ABG pO2 ABG HCO3 ABG O2 Saturation ABG Base Excess ABG Hemoglobin Oxyhemoglobin Sodium Potassium Chloride Carbon Dioxide BUN Creatinine Glucose POC Glucose 127 H 121 H 113 H Lactic Acid Calcium Phosphorus Magnesium AST ALT Alkaline Phosphatase Lactate Dehydrogenase Troponin T C-Reactive Protein NT-Pro-B Natriuret Pep Total Protein Albumin LDL Cholesterol Direct Vitamin B12 Fluid Glucose Fluid Total Protein Vancomycin Trough Crossmatch 12/22/21 12/22/21 12/23/21 04:58 04:58 06:40 WBC 11.5 H RBC 3.43 L Hgb 9.8 L Hct 28.7 L MCV MCH MCHC RDW 18.5 H 17.9 H Plt Count Seg Neuts % (Manual) Lymphocytes % (Manual) Seg Neutrophils # Man Lymphocytes # (Manual) Monocytes # (Manual) PT INR D-Dimer ABG pH ABG pO2 ABG HCO3 ABG O2 Saturation ABG Base Excess ABG Hemoglobin Oxyhemoglobin Sodium 130 L Potassium Chloride 97.8 L Carbon Dioxide BUN 31 H Creatinine 0.5 L Glucose 122 H POC Glucose Lactic Acid Calcium 7.9 L Phosphorus Magnesium AST ALT Alkaline Phosphatase Lactate Dehydrogenase Troponin T C-Reactive Protein NT-Pro-B Natriuret Pep Total Protein Albumin LDL Cholesterol Direct Vitamin B12 Fluid Glucose Fluid Total Protein Vancomycin Trough Crossmatch 12/23/21 12/23/21 12/24/21 06:40 23:25 04:24 WBC 11.7 H RBC Hgb 9.8 L Hct MCV MCH 26 L MCHC RDW 18.1 H Plt Count Seg Neuts % (Manual) Lymphocytes % (Manual) Seg Neutrophils # Man Lymphocytes # (Manual) Monocytes # (Manual) PT INR D-Dimer ABG pH ABG pO2 ABG HCO3 ABG O2 Saturation ABG Base Excess ABG Hemoglobin Oxyhemoglobin Sodium 136 L Potassium Chloride Carbon Dioxide BUN 27 H Creatinine 0.4 L Glucose 107 H POC Glucose 110 H Lactic Acid Calcium 8.1 L Phosphorus Magnesium AST ALT Alkaline Phosphatase Lactate Dehydrogenase Troponin T C-Reactive Protein NT-Pro-B Natriuret Pep Total Protein Albumin LDL Cholesterol Direct Vitamin B12 Fluid Glucose Fluid Total Protein Vancomycin Trough Crossmatch 12/24/21 12/24/21 12/24/21 04:24 11:08 15:45 WBC RBC Hgb Hct MCV MCH MCHC RDW Plt Count Seg Neuts % (Manual) Lymphocytes % (Manual) Seg Neutrophils # Man Lymphocytes # (Manual) Monocytes # (Manual) PT INR D-Dimer ABG pH ABG pO2 ABG HCO3 ABG O2 Saturation ABG Base Excess ABG Hemoglobin Oxyhemoglobin Sodium 132 L Potassium Chloride Carbon Dioxide BUN 27 H Creatinine 0.3 L Glucose 108 H POC Glucose 116 H 107 H Lactic Acid Calcium Phosphorus Magnesium AST ALT Alkaline Phosphatase Lactate Dehydrogenase Troponin T C-Reactive Protein NT-Pro-B Natriuret Pep Total Protein Albumin LDL Cholesterol Direct Vitamin B12 Fluid Glucose Fluid Total Protein Vancomycin Trough Crossmatch 12/24/21 12/25/21 12/25/21 23:43 05:29 11:48 WBC RBC Hgb Hct MCV MCH MCHC RDW Plt Count Seg Neuts % (Manual) Lymphocytes % (Manual) Seg Neutrophils # Man Lymphocytes # (Manual) Monocytes # (Manual) PT INR D-Dimer ABG pH ABG pO2 ABG HCO3 ABG O2 Saturation ABG Base Excess ABG Hemoglobin Oxyhemoglobin Sodium Potassium Chloride Carbon Dioxide BUN Creatinine Glucose POC Glucose 123 H 107 H 119 H Lactic Acid Calcium Phosphorus Magnesium AST ALT Alkaline Phosphatase Lactate Dehydrogenase Troponin T C-Reactive Protein NT-Pro-B Natriuret Pep Total Protein Albumin LDL Cholesterol Direct Vitamin B12 Fluid Glucose Fluid Total Protein Vancomycin Trough Crossmatch 12/26/21 12/26/21 12/26/21 00:06 05:56 07:51 WBC 11.4 H RBC 3.40 L Hgb 9.3 L Hct 28.3 L MCV MCH 27 L MCHC RDW 18.2 H Plt Count Seg Neuts % (Manual) Lymphocytes % (Manual) Seg Neutrophils # Man Lymphocytes # (Manual) Monocytes # (Manual) PT INR D-Dimer ABG pH ABG pO2 ABG HCO3 ABG O2 Saturation ABG Base Excess ABG Hemoglobin Oxyhemoglobin Sodium Potassium Chloride Carbon Dioxide BUN Creatinine Glucose POC Glucose 133 H 107 H Lactic Acid Calcium Phosphorus Magnesium AST ALT Alkaline Phosphatase Lactate Dehydrogenase Troponin T C-Reactive Protein NT-Pro-B Natriuret Pep Total Protein Albumin LDL Cholesterol Direct Vitamin B12 Fluid Glucose Fluid Total Protein Vancomycin Trough Crossmatch 12/26/21 12/26/21 12/26/21 07:51 11:43 17:06 WBC RBC Hgb Hct MCV MCH MCHC RDW Plt Count Seg Neuts % (Manual) Lymphocytes % (Manual) Seg Neutrophils # Man Lymphocytes # (Manual) Monocytes # (Manual) PT INR D-Dimer ABG pH ABG pO2 ABG HCO3 ABG O2 Saturation ABG Base Excess ABG Hemoglobin Oxyhemoglobin Sodium 136 L Potassium Chloride Carbon Dioxide BUN 25 H Creatinine 0.3 L Glucose 131 H POC Glucose 119 H 128 H Lactic Acid Calcium Phosphorus Magnesium AST ALT Alkaline Phosphatase Lactate Dehydrogenase Troponin T C-Reactive Protein NT-Pro-B Natriuret Pep Total Protein Albumin LDL Cholesterol Direct Vitamin B12 Fluid Glucose Fluid Total Protein Vancomycin Trough Crossmatch 12/28/21 12/28/21 12/29/21 09:05 09:05 04:40 WBC RBC 3.19 L Hgb 8.9 L Hct 26.4 L MCV MCH 27 L MCHC RDW 18.4 H 17.9 H Plt Count Seg Neuts % (Manual) Lymphocytes % (Manual) Seg Neutrophils # Man Lymphocytes # (Manual) Monocytes # (Manual) PT INR D-Dimer ABG pH ABG pO2 ABG HCO3 ABG O2 Saturation ABG Base Excess ABG Hemoglobin Oxyhemoglobin Sodium 135 L Potassium Chloride 97.8 L Carbon Dioxide BUN 18 H Creatinine 0.3 L Glucose POC Glucose Lactic Acid Calcium Phosphorus Magnesium AST ALT Alkaline Phosphatase Lactate Dehydrogenase Troponin T C-Reactive Protein NT-Pro-B Natriuret Pep Total Protein Albumin LDL Cholesterol Direct Vitamin B12 Fluid Glucose Fluid Total Protein Vancomycin Trough Crossmatch 12/29/21 12/29/21 12/30/21 04:40 12:47 04:05 WBC RBC 3.29 L Hgb 8.7 L Hct 27.6 L MCV MCH 27 L MCHC RDW 17.6 H Plt Count Seg Neuts % (Manual) Lymphocytes % (Manual) Seg Neutrophils # Man Lymphocytes # (Manual) Monocytes # (Manual) PT INR D-Dimer ABG pH ABG pO2 ABG HCO3 ABG O2 Saturation ABG Base Excess ABG Hemoglobin Oxyhemoglobin Sodium 136 L Potassium Chloride Carbon Dioxide BUN Creatinine 0.3 L Glucose POC Glucose 67 L Lactic Acid Calcium 8.3 L Phosphorus Magnesium AST ALT Alkaline Phosphatase Lactate Dehydrogenase Troponin T C-Reactive Protein NT-Pro-B Natriuret Pep Total Protein Albumin LDL Cholesterol Direct Vitamin B12 Fluid Glucose Fluid Total Protein Vancomycin Trough Crossmatch 12/30/21 12/31/21 12/31/21 04:05 00:07 04:00 WBC RBC 3.05 L Hgb 8.5 L Hct 25.5 L MCV MCH MCHC RDW 18.2 H Plt Count Seg Neuts % (Manual) Lymphocytes % (Manual) Seg Neutrophils # Man Lymphocytes # (Manual) Monocytes # (Manual) PT INR D-Dimer ABG pH ABG pO2 ABG HCO3 ABG O2 Saturation ABG Base Excess ABG Hemoglobin Oxyhemoglobin Sodium 136 L Potassium 3.5 L Chloride Carbon Dioxide BUN Creatinine 0.4 L Glucose POC Glucose 139 H Lactic Acid Calcium Phosphorus Magnesium 1.50 L AST ALT Alkaline Phosphatase Lactate Dehydrogenase Troponin T C-Reactive Protein NT-Pro-B Natriuret Pep Total Protein Albumin LDL Cholesterol Direct Vitamin B12 Fluid Glucose Fluid Total Protein Vancomycin Trough Crossmatch 12/31/21 12/31/21 12/31/21 04:00 04:52 11:23 WBC RBC Hgb Hct MCV MCH MCHC RDW Plt Count Seg Neuts % (Manual) Lymphocytes % (Manual) Seg Neutrophils # Man Lymphocytes # (Manual) Monocytes # (Manual) PT INR D-Dimer ABG pH ABG pO2 ABG HCO3 ABG O2 Saturation ABG Base Excess ABG Hemoglobin Oxyhemoglobin Sodium Potassium Chloride Carbon Dioxide BUN 19 H Creatinine 0.4 L Glucose 116 H POC Glucose 121 H 116 H Lactic Acid Calcium Phosphorus Magnesium AST ALT Alkaline Phosphatase Lactate Dehydrogenase Troponin T C-Reactive Protein NT-Pro-B Natriuret Pep Total Protein Albumin LDL Cholesterol Direct Vitamin B12 Fluid Glucose Fluid Total Protein Vancomycin Trough Crossmatch 12/31/21 01/01/22 01/01/22 17:42 04:31 04:31 WBC RBC 2.83 L Hgb 7.7 L Hct 23.2 L MCV MCH 27 L MCHC RDW 18.3 H Plt Count Seg Neuts % (Manual) Lymphocytes % (Manual) Seg Neutrophils # Man Lymphocytes # (Manual) Monocytes # (Manual) PT INR D-Dimer ABG pH ABG pO2 ABG HCO3 ABG O2 Saturation ABG Base Excess ABG Hemoglobin Oxyhemoglobin Sodium 135 L Potassium Chloride 97.7 L Carbon Dioxide BUN 21 H Creatinine 0.5 L Glucose 127 H POC Glucose 107 H Lactic Acid Calcium 8.0 L Phosphorus Magnesium AST ALT Alkaline Phosphatase Lactate Dehydrogenase Troponin T C-Reactive Protein NT-Pro-B Natriuret Pep Total Protein Albumin LDL Cholesterol Direct Vitamin B12 Fluid Glucose Fluid Total Protein Vancomycin Trough Crossmatch 01/01/22 01/01/22 01/01/22 05:24 11:25 18:11 WBC RBC Hgb Hct MCV MCH MCHC RDW Plt Count Seg Neuts % (Manual) Lymphocytes % (Manual) Seg Neutrophils # Man Lymphocytes # (Manual) Monocytes # (Manual) PT INR D-Dimer ABG pH ABG pO2 ABG HCO3 ABG O2 Saturation ABG Base Excess ABG Hemoglobin Oxyhemoglobin Sodium Potassium Chloride Carbon Dioxide BUN Creatinine Glucose POC Glucose 124 H 140 H 144 H Lactic Acid Calcium Phosphorus Magnesium AST ALT Alkaline Phosphatase Lactate Dehydrogenase Troponin T C-Reactive Protein NT-Pro-B Natriuret Pep Total Protein Albumin LDL Cholesterol Direct Vitamin B12 Fluid Glucose Fluid Total Protein Vancomycin Trough Crossmatch 01/01/22 01/02/22 01/02/22 23:26 04:01 04:01 WBC RBC 2.57 L Hgb 7.1 L Hct 21.5 L MCV MCH MCHC RDW 18.1 H Plt Count Seg Neuts % (Manual) Lymphocytes % (Manual) Seg Neutrophils # Man Lymphocytes # (Manual) Monocytes # (Manual) PT INR D-Dimer ABG pH ABG pO2 ABG HCO3 ABG O2 Saturation ABG Base Excess ABG Hemoglobin Oxyhemoglobin Sodium 131 L Potassium 3.5 L Chloride 94.8 L Carbon Dioxide BUN 27 H Creatinine Glucose 121 H POC Glucose 121 H Lactic Acid Calcium Phosphorus Magnesium AST ALT Alkaline Phosphatase Lactate Dehydrogenase Troponin T C-Reactive Protein NT-Pro-B Natriuret Pep Total Protein Albumin LDL Cholesterol Direct Vitamin B12 Fluid Glucose Fluid Total Protein Vancomycin Trough Crossmatch 01/02/22 01/02/22 01/02/22 05:30 11:10 16:08 WBC RBC Hgb Hct MCV MCH MCHC RDW Plt Count Seg Neuts % (Manual) Lymphocytes % (Manual) Seg Neutrophils # Man Lymphocytes # (Manual) Monocytes # (Manual) PT INR D-Dimer ABG pH ABG pO2 ABG HCO3 ABG O2 Saturation ABG Base Excess ABG Hemoglobin Oxyhemoglobin Sodium Potassium Chloride Carbon Dioxide BUN Creatinine Glucose POC Glucose 124 H 117 H 130 H Lactic Acid Calcium Phosphorus Magnesium AST ALT Alkaline Phosphatase Lactate Dehydrogenase Troponin T C-Reactive Protein NT-Pro-B Natriuret Pep Total Protein Albumin LDL Cholesterol Direct Vitamin B12 Fluid Glucose Fluid Total Protein Vancomycin Trough Crossmatch 01/02/22 01/02/22 01/03/22 17:30 23:26 04:53 WBC RBC 2.82 L Hgb 7.7 L Hct 23.4 L MCV MCH 27 L MCHC RDW 18.0 H Plt Count Seg Neuts % (Manual) Lymphocytes % (Manual) Seg Neutrophils # Man Lymphocytes # (Manual) Monocytes # (Manual) PT INR D-Dimer ABG pH ABG pO2 ABG HCO3 ABG O2 Saturation ABG Base Excess ABG Hemoglobin Oxyhemoglobin Sodium Potassium Chloride Carbon Dioxide BUN Creatinine Glucose POC Glucose 114 H Lactic Acid Calcium Phosphorus Magnesium AST ALT Alkaline Phosphatase Lactate Dehydrogenase Troponin T C-Reactive Protein NT-Pro-B Natriuret Pep Total Protein Albumin LDL Cholesterol Direct Vitamin B12 Fluid Glucose Fluid Total Protein Vancomycin Trough 22.8 H Crossmatch 01/03/22 01/03/22 01/03/22 04:53 06:23 17:35 WBC RBC Hgb Hct MCV MCH MCHC RDW Plt Count Seg Neuts % (Manual) Lymphocytes % (Manual) Seg Neutrophils # Man Lymphocytes # (Manual) Monocytes # (Manual) PT INR D-Dimer ABG pH ABG pO2 ABG HCO3 ABG O2 Saturation ABG Base Excess ABG Hemoglobin Oxyhemoglobin Sodium 133 L Potassium Chloride 96.2 L Carbon Dioxide BUN 30 H Creatinine Glucose 107 H POC Glucose 122 H 107 H Lactic Acid Calcium Phosphorus Magnesium AST ALT Alkaline Phosphatase Lactate Dehydrogenase Troponin T C-Reactive Protein NT-Pro-B Natriuret Pep Total Protein Albumin LDL Cholesterol Direct Vitamin B12 Fluid Glucose Fluid Total Protein Vancomycin Trough Crossmatch 01/04/22 01/04/22 01/04/22 04:00 12:32 16:45 WBC RBC Hgb Hct MCV MCH MCHC RDW Plt Count Seg Neuts % (Manual) Lymphocytes % (Manual) Seg Neutrophils # Man Lymphocytes # (Manual) Monocytes # (Manual) PT INR D-Dimer ABG pH ABG pO2 ABG HCO3 ABG O2 Saturation ABG Base Excess ABG Hemoglobin Oxyhemoglobin Sodium 132 L Potassium Chloride 92.8 L Carbon Dioxide BUN 30 H Creatinine Glucose 115 H POC Glucose 111 H 111 H Lactic Acid Calcium Phosphorus Magnesium 1.60 L AST ALT Alkaline Phosphatase Lactate Dehydrogenase Troponin T C-Reactive Protein NT-Pro-B Natriuret Pep Total Protein Albumin LDL Cholesterol Direct Vitamin B12 Fluid Glucose Fluid Total Protein Vancomycin Trough Crossmatch 01/05/22 01/05/22 01/05/22 04:30 04:30 17:04 WBC RBC 3.11 L Hgb 8.4 L Hct 25.5 L MCV MCH 27 L MCHC RDW 17.6 H Plt Count Seg Neuts % (Manual) Lymphocytes % (Manual) Seg Neutrophils # Man Lymphocytes # (Manual) Monocytes # (Manual) PT INR D-Dimer ABG pH ABG pO2 ABG HCO3 ABG O2 Saturation ABG Base Excess ABG Hemoglobin Oxyhemoglobin Sodium 135 L Potassium Chloride 93.6 L Carbon Dioxide BUN 29 H Creatinine Glucose POC Glucose 67 L Lactic Acid Calcium Phosphorus Magnesium AST ALT Alkaline Phosphatase Lactate Dehydrogenase Troponin T C-Reactive Protein NT-Pro-B Natriuret Pep Total Protein Albumin LDL Cholesterol Direct Vitamin B12 Fluid Glucose Fluid Total Protein Vancomycin Trough Crossmatch 01/05/22 01/06/22 01/06/22 23:27 04:06 04:06 WBC RBC 2.89 L Hgb 7.7 L Hct 23.8 L MCV MCH 27 L MCHC RDW 18.0 H Plt Count Seg Neuts % (Manual) Lymphocytes % (Manual) Seg Neutrophils # Man Lymphocytes # (Manual) Monocytes # (Manual) PT 16.9 H INR 1.23 H D-Dimer ABG pH ABG pO2 ABG HCO3 ABG O2 Saturation ABG Base Excess ABG Hemoglobin Oxyhemoglobin Sodium Potassium Chloride Carbon Dioxide BUN Creatinine Glucose POC Glucose 110 H Lactic Acid Calcium Phosphorus Magnesium AST ALT Alkaline Phosphatase Lactate Dehydrogenase Troponin T C-Reactive Protein NT-Pro-B Natriuret Pep Total Protein Albumin LDL Cholesterol Direct Vitamin B12 Fluid Glucose Fluid Total Protein Vancomycin Trough Crossmatch 01/06/22 01/06/22 01/06/22 04:06 13:40 23:41 WBC RBC Hgb Hct MCV MCH MCHC RDW Plt Count Seg Neuts % (Manual) Lymphocytes % (Manual) Seg Neutrophils # Man Lymphocytes # (Manual) Monocytes # (Manual) PT INR D-Dimer ABG pH ABG pO2 ABG HCO3 ABG O2 Saturation ABG Base Excess ABG Hemoglobin Oxyhemoglobin Sodium 132 L Potassium Chloride 92.3 L Carbon Dioxide BUN 26 H Creatinine Glucose 111 H POC Glucose 120 H Lactic Acid Calcium Phosphorus Magnesium AST ALT Alkaline Phosphatase Lactate Dehydrogenase Troponin T C-Reactive Protein NT-Pro-B Natriuret Pep Total Protein Albumin LDL Cholesterol Direct Vitamin B12 Fluid Glucose 96 H Fluid Total Protein < 3.0 L Vancomycin Trough Crossmatch 01/07/22 01/07/22 01/07/22 05:20 11:30 17:00 WBC RBC Hgb Hct MCV MCH MCHC RDW Plt Count Seg Neuts % (Manual) Lymphocytes % (Manual) Seg Neutrophils # Man Lymphocytes # (Manual) Monocytes # (Manual) PT INR D-Dimer ABG pH ABG pO2 ABG HCO3 ABG O2 Saturation ABG Base Excess ABG Hemoglobin Oxyhemoglobin Sodium Potassium Chloride Carbon Dioxide BUN Creatinine Glucose POC Glucose 111 H 113 H 121 H Lactic Acid Calcium Phosphorus Magnesium AST ALT Alkaline Phosphatase Lactate Dehydrogenase Troponin T C-Reactive Protein NT-Pro-B Natriuret Pep Total Protein Albumin LDL Cholesterol Direct Vitamin B12 Fluid Glucose Fluid Total Protein Vancomycin Trough Crossmatch 01/07/22 01/08/22 01/08/22 23:41 11:26 16:23 WBC RBC Hgb Hct MCV MCH MCHC RDW Plt Count Seg Neuts % (Manual) Lymphocytes % (Manual) Seg Neutrophils # Man Lymphocytes # (Manual) Monocytes # (Manual) PT INR D-Dimer ABG pH ABG pO2 ABG HCO3 ABG O2 Saturation ABG Base Excess ABG Hemoglobin Oxyhemoglobin Sodium Potassium Chloride Carbon Dioxide BUN Creatinine Glucose POC Glucose 110 H 129 H 118 H Lactic Acid Calcium Phosphorus Magnesium AST ALT Alkaline Phosphatase Lactate Dehydrogenase Troponin T C-Reactive Protein NT-Pro-B Natriuret Pep Total Protein Albumin LDL Cholesterol Direct Vitamin B12 Fluid Glucose Fluid Total Protein Vancomycin Trough Crossmatch 01/09/22 01/10/22 01/10/22 18:13 00:27 04:00 WBC RBC Hgb Hct MCV MCH MCHC RDW Plt Count Seg Neuts % (Manual) Lymphocytes % (Manual) Seg Neutrophils # Man Lymphocytes # (Manual) Monocytes # (Manual) PT INR D-Dimer ABG pH ABG pO2 ABG HCO3 ABG O2 Saturation ABG Base Excess ABG Hemoglobin Oxyhemoglobin Sodium 133 L Potassium Chloride 92.6 L Carbon Dioxide 31 H BUN 29 H Creatinine 0.5 L Glucose 115 H POC Glucose 118 H 111 H Lactic Acid Calcium Phosphorus Magnesium AST ALT Alkaline Phosphatase Lactate Dehydrogenase Troponin T C-Reactive Protein NT-Pro-B Natriuret Pep Total Protein Albumin LDL Cholesterol Direct Vitamin B12 Fluid Glucose Fluid Total Protein Vancomycin Trough Crossmatch 01/10/22 05:47 WBC RBC Hgb Hct MCV MCH MCHC RDW Plt Count Seg Neuts % (Manual) Lymphocytes % (Manual) Seg Neutrophils # Man Lymphocytes # (Manual) Monocytes # (Manual) PT INR D-Dimer ABG pH ABG pO2 ABG HCO3 ABG O2 Saturation ABG Base Excess ABG Hemoglobin Oxyhemoglobin Sodium Potassium Chloride Carbon Dioxide BUN Creatinine Glucose POC Glucose 106 H Lactic Acid Calcium Phosphorus Magnesium AST ALT Alkaline Phosphatase Lactate Dehydrogenase Troponin T C-Reactive Protein NT-Pro-B Natriuret Pep Total Protein Albumin LDL Cholesterol Direct Vitamin B12 Fluid Glucose Fluid Total Protein Vancomycin Trough Crossmatch Allied health notes reviewed: nursing
--- NOTE | 2022-01-10 13:46 | Progress Note ---
Assessment and Plan Assessment and plan: History Interval history: This is an 82-year-old female with DM, HTN , CHB s/p PPM, CAD s/p PCI and arthritis who presented to the emergency department on 11/04 for shortness of breath ongoing for the past 3 days, cough and according to family a fever of 102.2. Upon arrival of EMS patient was found to be tachypneic and hypoxic with SPO2 of 76% on room air which later improved to 88% on nonrebreather. Work-up in the emergency department included a CXR which showed bilateral interstitial pulmonary edema with bilateral pleural effusions and bibasilar opacities, leukocytosis and anemia with a hemoglobin of 6.1. Patient was admitted to the hospitalist service with acute anemia, acute hypoxic respiratory failure, bilateral pneumonia and COVID-19 PUI with consults to pulmonology, infectious disease and later cardiology. Patient was eventually intubated in the emergency department on 11/06. Hospital Course to date: 11/04/2021: Empiric therapy with iv levaquin/vancomycin. COVID PCR pending. Will consult ID. PCCM consulted, will follow recs. Hypotensive this AM, ordered bolus and fluids at 150 cc/hr. May require pressor support if bp does not improve. 11/05/2021: GBS on bcx +, currently on rocephin IV. Currently on bipap due to respiratory distress overnight. Worsening BL opacities on CXR. May be volume overload vs pneumonia. Unfortunately bp too low for lasix at this point. WIll continue levophed and bipap. Once able to tolerate, may do trial of albumin/lasix. Call attempt made to Niraj, no response. Will try again tomorrow to update. 11/06/2021: Decompensated overnight requiring intubation. CXR shows worsening interstitial infiltrates. Currenlty on dopamine, levophed, vasopressin. PICC line ordered. Advised RN to place gamble for I/O monitoring. Would benefit from diuresis but very volume overloaded. Prognosis guarded 11/08: Off sedation this am, remains unresponsive only grimace to pain. Hold all sedatives agents for now, patient is off pressors this am. Hypernatremia from today's lab- D5W X1bag, and low K repleted, repeat lab in the am. Severe constipation also noted from KUB, BR added. 11/09: Sudden SPO2 drop in the 60s this am. Patient was manually bagged and deep suctioned. Patient is currently stable on the vent, repeat CXR with no significant change. D/w CCM Mucomyst and brochodilator added. Patient mentation is unchanged, continue to hold off on sedative agents. Neurology consulted. 11/10: Acute DVT noted on bilateral lower extremity Doppler ultrasound therefore she was started on Lovenox treatment dose. Failed SBT. Hypernatremia and hyperchloremia noted, free water flush adjusted. 11/11: Patient noted to be febrile with increasing of the cytosis, UA/BC sent and CXR ordered. ID escalated antibiotics to cefepime. CXR demonstrated mucous plug, bedside bronchoscopy was performed and O ETT was changed over bougie from 6 cm to 7.5. Patient was noted to have a pneumothorax postprocedure and chest tube was placed. Family updated by [facility]. Free water flush increased and will add Jaswant supplementation. 11/12: Patient not noted to follow commands, hypernatremia worsen/persist, increasing free water flush, potassium and magnesium and phosphorus repleted. Hemoglobin noted to be 7./24.5 from 7.03/12 yesterday. We will continue to trend and monitor. Vent changes per [facility]. Repeat CXR showed no residual pneumothorax. Consider waterseal tomorrow. Given persistent leukocytosis antibiotics escalated to cefepime per ID. 11/13: Remains on cefepime and vancomycin, vent changes per [facility]. Anemia noted and given 1 unit PRBC. And beta-charleen held in setting of Levophed drip infusing. Remains on fentanyl drip. 11/14: Patient put on CPAP trial by [facility], will continue chest tube until after extubation. Will rest on assist control. CT brain was cancelled by director trading and reordered. 11/15: Patient removed chest tube overnight. Will obtain cxr. remains on low dose levo. CTH completed with no acute findings. RT to place on CPAP. 11/16: Hypernatremia/hyperchloremia noted on the increase of day water flushes. Anemia noted and ordered PRBC. asked RT to place on cpap but not done yet 11/17: Patient remains on the vent, awake and following commands. H&H stable s/p 2units PRBCs. GI on consult, no intervention at this time. Will continue protonix gtt and serial H&H Q6hrs. Keep patient NPO for now, D5w added for hypernatremia and NPO status. Plan for IVC filter placement today by Vascular. 11/18: Patient is s/p IVC filter. H&H continue to trend down, hbg 6.1 this am, 1 unit of PRBCs ordered. Plan for possible EGD today by GI. Keep patient NPO, continue PPI drip and serial H&H Q6hrs. Electrolytes repleted, repeat lab in the am 11/19: S/p EGD- larger duodenal ulcer noted, see operative note. GI recommendations noted also noted. H&H stable this am. Keep patient on protonix gtt for now. Will keep patient NPO, continue IVF and serial H&H for now. Electrolytes repleted, repeat labs in the am 11/20: Very agitated and restless this am, fentanyl gtt resumed. Patient remains on protonix gtt, H&H remains stable. Will switch protonix gtt to IV BID, continue carafate and okay to resume meds at this time. Will F/u with GI to see if TF can be resumed. Gamble was reinserted overnight for retention. Electrolytes repleted, repeat in the am. Plan for possible PST today for possible extubation per CCM. 11/21: Patient is now on seroquel and patient's home buspar resumed. Patient more calm this morning, fentanyl gtt is off. H&H remains stable and patient is tolerating TF. Patient had a runs of Vtach/PVCs this am, BB added per Cardio. Continue daily PS and wean trial for possible extubation. 11/22: Back on fentanyl gtt overnight , RASS o to -1, following commands. Patient failed PST this am due to increased work of breathing and low SPO2, ABG pending. Patient is also with worsen pitting edema, lasix is still on hold. Will discuss with cardio and CCM to possibly resume lasix. 11/23: MARIA DEL CARMEN overnight. Patient failed PST again this am. Per CCM plan for possible trach and PEG, hold off on IV lasix for now. General surgery consulted and family is aware of possible Trach and PEG. 11/24: Trach/PEG pending this week, continue SBT/SAT as tolerated. No acute events reported overnight. 11/25: Patient was n.p.o. overnight and will remain n.p.o. tonight for trach/PEG tomorrow morning. She failed to support trial again. KUB obtained due to distended belly. 11/26: Patient scheduled for tracheostomy and PEG tube placement today, has been n.p.o. since midnight. No acute events reported overnight. [facility] ordered simethicone scheduled. 11/27: No acute events reported overnight, patient received trach/PEG yesterday. Has been on feedings since last night. Still awaiting LTAC placement. 11/28: Patient magnesium repleted, repeat a.m. labs, SBT 11/29: Patient complains of chest pain but ECG obtained which showed no acute findings, ordered troponin. Patient failed CPAP yesterday and was trialed again today. levophed was restarted but will aggressively wean 11/30: Patient failed SBT. Continue supportive care. Started gabapentin today 12/01: MARIA DEL CARMEN overnight. Continue daily PST. Case management to arrange possible placement 12/02: Report of dark stools overnight, patient is hemodynamically stable. H&H stable, patient is on PPI. Will continue to trend H&H. Continue daily PST as tolerated. Awaiting LTAC vs SNF placement. 12/03: Hypotensive overnight, requiring low dose pressors. S/p X3 days of gentle diurese. Will continue to monitor, wean off pressors as tolerated for MAP of 65. Patient Failed PST yesterday, case management to follow up with insurance for possible LTAC placement. Continue daily PST as tolerated. PT eval and treat ordered. 12/04: Increased agitation and anxiety overnight, remains on buspar and seroquel, trazadone added to promote rest. Patient is now working with PT, keep patient engage and awake during the day so she can rest at night. No BM for over 5 days, BR was adjusted. Patient did not tolerate PST again yesterday, continue daily PST as tolerated. Continue to titrate pressor for MAP above 65. Pending possible LTAC placement, case management to arrange. 12/05: Still not getting much rest overnight, will add melatonin for sleep. Continue to engage patient during the day and promote rest at night. TF was held due to concern for possible bleeding, H&H remains stable and stools normal this am. Resume TF and continue PPI and carafate. Remains on low dose levophed, titrate as tolerated. Continue daily PST. Possible LTAC placement, awaiting approval. 12/06: MARIA DEL CARMEN overnight. Patient rested overnight. Continue supportive measures. Daily PST as tolerated. Awaiting possible LTAC placement 12/07: MARIA DEL CARMEN overnight. Plan for Tpiece trial today. Continue current supportive measures. Possible LTAC placement 12/08: Patient placed on pressure support trial again today, started on Xanax, no acute events reported overnight. Awaiting insurance approval for LTAC. 12/09: Levophed discontinued, LTAC transfer denied, started on midodrine and Lasix, ultrasound chest pending, started on Xanax 0.[address] De León updated family at bedside today. Started on Dilaudid every 3 hours as needed. 12/10: Patient placed on CPAP trial this morning, no acute events reported overnight. Will order ultrasound-guided thoracentesis. 12/11: Patient had a thoracentesis today, will decrease Xanax dosage and continue midodrine and diuresing. Patient failed CPAP today. 12/12: Patient not tolerate CPAP trials today, no acute events reported overnight 12/13: No acute events overnight. continue PSV trials as tolerated. Daughter updated at bedside 12/14: Patient noted to be anemic today, ordered gastric occult. Patient seems to be oversedated therefore Xanax changed to as needed and fentanyl patch discontinued. We will continue to monitor hyponatremia. 12/15: MARIA DEL CARMEN overnight. s/p 1unit of PRBCs, H&H stable this am, no signs of any active bleeding. Continue daily PST as tolerated. Awaiting placement. 12/16: Hypertensive this am, Midodrine decreased. Continue daily PST. MARIA DEL CARMEN overnight 12/17: Patient Hgb dropped to 6 this am, no s/s of any active bleeding, VSS. Patient received 1unit of PRBC, will continue to trend H&H. Patient was pancultured and back on IV Abx due to persistent fevers yesterday. ID is also back on the case. Continue IV Abx per ID and f/u on cultures data for sensitivity. Patient also failed PST yesterday, continue daily PST as tolerated. Electrolytes repleted, repeat labs in the am. 12/18: Patient blood cultures is growing GPC 4 out 4 bottles. PICC line D/Rivas, patient is already on IV Abx-cefepine and Vanc and ID is following. Patient remains hemodynamically stable. Daily PST as tolerated adn PRN Benzo for anxiety. 12/19: MARIA DEL CARMEN overnight. Culture data noted, continue IV Abx per ID. Orders placed for repeat Bculture. Gamble D/C overnight, patient is voiding. Check bladder scan as needed for retention. Patient failed PST again today. Continue daily PST as tolerated. 12/20: Fevers improved, Cultures +MRSA, on Vanco per ID. Repeat 2D Echo to r/o endocarditis. Patient continue to fail PST, PEEP increased to 8 today. Continue pulmonary hygiene and vent wean per CCM. Sodium tab added for hyponatremia. 12/22: Patient on pressure support trial for approximately 4 hours today, midodrine dosage increased due to hypotension. Lasix discontinued. 12/23: Started on a.m. Seroquel dose, midodrine increased to 10 mg 3 times daily, 500 mL normal saline bolus. 12/24: Seroquel dose changed (25 every morning, 75 nightly). updated at bedside by Dr. De León. CPAP trials as tolerated. Continue vancomycin. Awaiting placement. 12/25: Continue CPAP as tolerated, added gasx for distention. Continue supportive care 12/26: Patient failed PSV this AM. no acute events overnight. 12/27: GI re-consulted due to abdominal distention. No acute events reported overnight. CPAP trials as tolerated. Dr. Mckenna will get a KUB to rule out po ssible obstruction. 12/28: KUB shows no acute process, CXR shows improvement. CPAP trials as tolerat ed. 12/29: CT Abd/pelvis noted with moderated bilateral pleural effusion, anasarca, and ascites. X1dose of IV lasix administered. D/w CCM and GI orders plan for thora and paracentesis by IR. Will also start patient on aldactone Qday. Patient is tolerating trickle feeds this am, continue TF and BR adjusted for constipation. Plan of care was discussed with patient and her at the bedside. Thorough discussion on patient's overall poor prognosis and that patient will most likely be vent dependent. Patient's voiced understanding of the info given. All questions and concerns were voiced at this time. 12/30: Patient did not tolerate thoracentesis in IR yesterday due to change in LOC and hypoxia. Plan for possible bedside thoracentesis and paracentesis today. Patient remains afebrile. Patient required care home IV abx therapy [id number] left, orders placed for a PICC. Patient remains with sign. Piting edema and anasarca, X1 does of PO Zaroxolyn and 2m of IV lasix given. Electrolytes repleted, repeat lab in the am. 12/31: Tolerated Rt. thoracentesis at the bedside yesterday, 1.4L removed. Patient remains stable on the vent this am, tolerating CPAP today PS dropped to 14. Recent CXR noted, left pleural effusion improved. Patient tolerated gentle diurese yesterday, good urine output reported. D/w CCM hold off on Left thoracentesis today, continue PO Aldactone and additonal zaroxolyn and IV lasix again today. F/u CXR in the am. 01/01: This am CXR noted with worsening bilateral pleural effusion. Patient is stable and tolerating PST this am, however PS is back up to 20 this am. BP is soft this am will hold off on IV diuretic for today, continue PO Aldactone. D/w CCM continue gentle diurese as tolerated. Will reassess in the am. Continue support care. 01/02: MARIA DEL CARMEN overnight. VSS this am, tolerating PST. X1dose of 25% IV Albumin following with 20mg IV Lasix today. Continue daily gentle diurese if hemodynamics tolerate it. Continue to monitor and replace electrolytes as needed 01/03: Abdominal distention and vomiting overnight, 600cc of gastric residual removed, TF held. KUB with no acute abnormality. Reglan added X2days, resume TF, and continue BR. Patient is tolerating PST this am. Hemodynamics remains stable, will continue gentle IV diurese. close monitoring to renal function and electrolytes. 01/04: Tolerating TF, nausea/vomiting resolved, last BM on 01/03. Continue Reglan X1 more day. Patient continue to tolerate PST. D/W CCM continue gentle diurese. F/U CXR in the am. Possible US thoracentesis tomorrow. 01/05: no acute events overnight. scheduled for thoracentesis today but procedure pushed to tomorrow. TF restarted and will be NPO post MN. 01/06: planned thoracentesis today. Working with CM for ltac/snf approval. 01/07: s/p thoracentesis 120 cc appears to have been removed. Pulm recommendations noted, agree with continued diuresis and weaning. Continued planning with CM for ltac/snf placement. 01/08: No new issues. Continue vent weaning per pulmonary. Continuing to work with CM for placement. 01/09: No new issues. Continue vent weaning per pulmonary. Continuing to work with CM for placement. Ordered BMP for tomorrow to check kidney function as patient is currently being diuresed. 01/10: No new issues. Continue vent weaning/diuresis as directed by pulmonary medicine.BMP demonstrates normal renal function and potassium. Sodium and Chloride consistent with prior labs. Will recheck BMP in 2 days. Placement continues to be an issue as patient has been denied at all facilities. Will reasses with CM on wednesday. Assessment and Plan Neuro : Anxiety, chronic pain -Neurology consulted, appreciate recommendations -CT brain showed no acute events -EEG interpreted as abnormal record due to diffuse slowing noted throughout the recording, suggestive of encephalopathic process and/or drug effect, possibil ities of postictal state cannot be totally excluded. Clinical correlation is in order -MRI brain not obtained-> patient has metal in her body -Repeat CT head with no acute findings -Reorientation as needed -Ammonia 42, B12 1823, TSH 1.5 -BuSpar, Seroquel, Sidney, gabapentin -prn xanax and Dilaudid Cardio: Acute Heart failure with reduced EF, h/o chronic heart block s/p PPM, HTN, CAD s/p PCI (2004), Moderate pulmonary HTN, cardiomyopathy -s/p vasopressor support with levophed -11/04 echocardiogram shows EF 30 to 35%, Moderate pulmonary HTN RVSP 49 -3/4 echo with 35-40% EF -Cardiology consulted, appreciate recommendations -Continue beta-charleen and statin therapy -Midodrine (titrate as needed) -Not on aspirin due to allergy -Blood pressure monitoring per protocol -As needed nitroglycerin Resp: Acute hypoxic respiratory failure secondary to bilateral pneumonia, bilateral pleural effusion. Right pneumothorax (resolved) -COVID-19 PCR negative -Intubated on 11/06 with 6.00 ETT at 18 at the lip and changed over bougie on 11/11-7.50 ETT at 20 at the lip -See RT notes for titration -PSV as tolerated -Surgery consult for trach -Received trach/PEG on 11/26 -S/p bedside bronchoscopy on 11/11 complicated by pneumothorax -S/p chest tube placement for right pneumothorax and dislodgment by patient on 11/15 -ABG/CXR per CCM -VAP bundle -Right chest wall ultrasound showed pleural effusion s/p chest tube -12/11 US thoracentesis removed 1L fluid -12/29 US thoracentesis removed 1.4L fluid -01/06 thoracentesis planned -SPO2 monitoring GI: S/p GI bleed, duodenal ulcer, transaminitis -GI consulted, appreciate recommendations-signed off -Nutrition consult for tube feeding -BR: Senokot -s/p peg 11/26 -H2 charleen -Carafate -24-hour +428 ml -10/2021 Gastric occult positive -> EGD-> duodenal ulcer -12/14 occult stool positive : Urinary retention (resolved), hyponatremia, hypochloremia -Strict intake and output -Trend BMP ID: Septic shock (POA-resolved), bilateral pneumonia, MRSA bacteremia/pna -Infectious disease consulted, appreciate recommendations -COVID-19 PCR negative -Presented with fevers, leukocytosis and hypotension -11/04 blood cultures positive with a group B strep bacteremia 12/19 however repeat blood cultures on the with no growth to date -Echo showed no evidence of vegetation -repeat echo showed EF 35-40 % with no vegetations -ABX therapy: IV vancomycin for 4 weeks (12/16-01/26) -Monitor WBC and fever curve -Bedside bronchoscopy for mucous plug on CXR 11/11 -f/u blood cultures Heme: Acute DVT in the right external iliac vein, common femoral vein, superior aspect of femoral vein, Acute microcytic anemia -Evidenced on bilateral upper lower extremity ultrasound -S/p 7 unit PRBC -Trend CBC -Transfuse for hemoglobin less than 7 -heparin gtt dc d/t anemia -S/p IVC filter Endo: h/o DM and hypothyroidism -Continue home Synthroid -SSI -Accu-Cheks every 6 -Avoid hypoglycemia Disposition: Denied LTAC placement by insurance, appeal denied. Awaiting subacute rehab placement The high probability of a clinically significant, sudden or life threatening deterioration of the [pulm,mental health, CV] system(s) required my full and direct attention, intervention and personal management. The aggregate critical care time was [60] minutes. This time is in addition to time spent performing reported procedures but includes the following: [x] Data Review and interpretation [x] Patient assessment and monitoring of vital signs [x] Documentation [x] Medication orders and management Disposition Plan: imcu Total Time Spent with Patient (Minutes): 60 Hospitalist Physical - Physical exam Narrative exam: Physical Exam: VITAL SIGNS: Reviewed. GENERAL: The patient appears normally developed, Vital signs as documented. Frail appearing elderly woman. HEAD: No signs of head trauma. EYES: Pupils are equal. Extraocular motions intact. EARS: Hearing grossly intact. MOUTH: Oropharynx is normal. NECK: No adenopathy, no JVD. CHEST: Bl rhonchi CARDIAC: Regular rate and rhythm. S1 and S2, without murmurs, gallops, or rubs. VASCULAR: No Edema. Peripheral pulses normal and equal in all extremities. ABDOMEN: Soft, non tender and non distended. No rebound or guarding, and no masses palpated. Bowel Sounds normal. MUSCULOSKELETAL: Good range of motion of all major joints. Extremities without clubbing, cyanosis or edema. NEUROLOGIC EXAM: Alert and oriented x 4. no focal sensory or strength deficits. PSYCHIATRIC: anxious appearing SKIN: detail exam as documented in skin assessment - Constitutional Vitals: Temp Pulse Resp BP Pulse Ox 97.7 F 60 18 129/58 100 01/10/22 12:00 01/10/22 11:00 01/10/22 11:00 01/10/22 11:00 01/10/22 11:00 General appearance: Present: no acute distress, other (Trach and on the vent) HEART Score - HEART Score Troponin: Troponin T 0.045 ng/mL (0.00-0.029) H 11/29/21 20:15 Results - Labs CBC & Chem 7: 01/06/22 04:06 01/10/22 04:00 Labs: Laboratory Last Values WBC 7.7 K/mm3 (4.5-11.0) 01/06/22 04:06 RBC 2.89 M/mm3 (3.65-5.03) L 01/06/22 04:06 Hgb 7.7 gm/dl (10.1-14.3) L 01/06/22 04:06 Hct 23.8 % (30.3-42.9) L 01/06/22 04:06 MCV 82 fl (79-97) 01/06/22 04:06 MCH 27 pg (28-32) L 01/06/22 04:06 MCHC 33 % (30-34) 01/06/22 04:06 RDW 18.0 % (13.2-15.2) H 01/06/22 04:06 Plt Count 225 K/mm3 (140-440) 01/06/22 04:06 Add Manual Diff Complete 12/20/21 04:54 Total Counted 100 12/20/21 04:54 Seg Neutrophils % Cutter Operator Brick 11/06/21 15:50 Seg Neuts % (Manual) 88.0 % (40.0-70.0) H 12/20/21 04:54 Band Neutrophils % 0 % 12/20/21 04:54 Lymphocytes % (Manual) 6.0 % (13.4-35.0) L 12/20/21 04:54 Reactive Lymphs % (Man) 0 % 12/20/21 04:54 Monocytes % (Manual) 5.0 % (0.0-7.3) 12/20/21 04:54 Eosinophils % (Manual) 1.0 % (0.0-4.3) 12/20/21 04:54 Basophils % (Manual) 0 % (0.0-1.8) 12/20/21 04:54 Metamyelocytes % 0 % 12/20/21 04:54 Myelocytes % 0 % 12/20/21 04:54 Promyelocytes % 0 % 12/20/21 04:54 Blast Cells % 0 % 12/20/21 04:54 Nucleated RBC % Not Reportable 12/20/21 04:54 Seg Neutrophils # Man 10.8 K/mm3 (1.8-7.7) H 12/20/21 04:54 Band Neutrophils # 0.0 K/mm3 12/20/21 04:54 Lymphocytes # (Manual) 0.7 K/mm3 (1.2-5.4) L 12/20/21 04:54 Abs React Lymphs (Man) 0.0 K/mm3 12/20/21 04:54 Monocytes # (Manual) 0.6 K/mm3 (0.0-0.8) 12/20/21 04:54 Eosinophils # (Manual) 0.1 K/mm3 (0.0-0.4) 12/20/21 04:54 Basophils # (Manual) 0.0 K/mm3 (0.0-0.1) 12/20/21 04:54 Metamyelocytes # 0.0 K/mm3 12/20/21 04:54 Myelocytes # 0.0 K/mm3 12/20/21 04:54 Promyelocytes # 0.0 K/mm3 12/20/21 04:54 Blast Cells # 0.0 K/mm3 12/20/21 04:54 WBC Morphology Not Reportable 12/20/21 04:54 Hypersegmented Neuts Not Reportable 12/20/21 04:54 Hyposegmented Neuts Not Reportable 12/20/21 04:54 Hypogranular Neuts Not Reportable 12/20/21 04:54 Smudge Cells Not Reportable 12/20/21 04:54 Toxic Granulation Not Reportable 12/20/21 04:54 Toxic Vacuolation Not Reportable 12/20/21 04:54 Dohle Bodies Not Reportable 12/20/21 04:54 Pelger-Huet Anomaly Not Reportable 12/20/21 04:54 Irina Rods Not Reportable 12/20/21 04:54 Platelet Estimate Consistent w auto 12/20/21 04:54 Clumped Platelets Not Reportable 12/20/21 04:54 Plt Clumps, EDTA Not Reportable 12/20/21 04:54 Large Platelets Not Reportable 12/20/21 04:54 Giant Platelets Not Reportable 12/20/21 04:54 Platelet Satelliting Not Reportable 12/20/21 04:54 Plt Morphology Comment Not Reportable 12/20/21 04:54 RBC Morphology Not Reportable 12/20/21 04:54 Dimorphic RBCs Not Reportable 12/20/21 04:54 Polychromasia Not Reportable 12/20/21 04:54 Hypochromasia Not Reportable 12/20/21 04:54 Poikilocytosis Not Reportable 12/20/21 04:54 Anisocytosis 1+ 12/20/21 04:54 Microcytosis Not Reportable 12/20/21 04:54 Macrocytosis Not Reportable 12/20/21 04:54 Spherocytes Not Reportable 12/20/21 04:54 Pappenheimer Bodies Not Reportable 12/20/21 04:54 Sickle Cells Not Reportable 12/20/21 04:54 Target Cells Not Reportable 12/20/21 04:54 Tear Drop Cells Not Reportable 12/20/21 04:54 Ovalocytes Not Reportable 12/20/21 04:54 Helmet Cells Not Reportable 12/20/21 04:54 [place] Bodies Not Reportable 12/20/21 04:54 [place] Rings Not Reportable 12/20/21 04:54 [place] Cells Not Reportable 12/20/21 04:54 Bite Cells Not Reportable 12/20/21 04:54 Crenated Cell Not Reportable 12/20/21 04:54 Elliptocytes Not Reportable 12/20/21 04:54 Acanthocytes (Spur) Not Reportable 12/20/21 04:54 Rouleaux Not Reportable 12/20/21 04:54 Hemoglobin C Crystals Not Reportable 12/20/21 04:54 Schistocytes Not Reportable 12/20/21 04:54 Malaria parasites Not Reportable 12/20/21 04:54 [place] Bodies Not Reportable 12/20/21 04:54 Hem Pathologist Commnt No 12/20/21 04:54 PT 16.9 Sec. (12.2-14.9) H 01/06/22 04:06 INR 1.23 (0.87-1.13) H 01/06/22 04:06 APTT 29.2 Sec. (24.2-36.6) 11/26/21 05:00 D-Dimer 2655.00 ng/mlDDU (0-234) H 11/11/21 04:28 ABG pH 7.479 pH Units (7.350-7.450) H 12/16/21 20:52 ABG pCO2 37.5 mm Hg 12/16/21 20:52 ABG pO2 79.3 mm Hg (80.0-90.0) L 12/16/21 20:52 ABG HCO3 27.3 mmol/L (20.0-26.0) H 12/16/21 20:52 ABG O2 Saturation 97.0 % (95.0-99.0) 12/16/21 20:52 ABG O2 Content 12.3 (0.0-44) 12/16/21 20:52 ABG Base Excess 3.6 mmol/L (-2.0-3.0) H 12/16/21 20:52 ABG Hemoglobin 9.1 gm/dl (12.0-16.0) L 12/16/21 20:52 ABG Carboxyhemoglobin 1.6 % (0.0-5.0) 12/16/21 20:52 ABG Methemoglobin 0.5 % (0.0-1.5) 12/16/21 20:52 Oxyhemoglobin 94.9 % (95.0-99.0) L 12/16/21 20:52 FiO2 30 % 12/16/21 20:52 Sodium 133 mmol/L (137-145) L 01/10/22 04:00 Potassium 4.0 mmol/L (3.6-5.0) 01/10/22 04:00 Chloride 92.6 mmol/L (98-107) L 01/10/22 04:00 Carbon Dioxide 31 mmol/L (22-30) H 01/10/22 04:00 Anion Gap 13 mmol/L 01/10/22 04:00 BUN 29 mg/dL (7-17) H 01/10/22 04:00 Creatinine 0.5 mg/dL (0.6-1.2) L 01/10/22 04:00 Estimated GFR > 60 ml/min 01/10/22 04:00 BUN/Creatinine Ratio 58 % 01/10/22 04:00 Glucose 115 mg/dL (65-100) H 01/10/22 04:00 POC Glucose 106 mg/dL (70-105) H 01/10/22 05:47 Lactic Acid 3.70 mmol/L (0.7-2.0) H* 11/03/21 22:32 Calcium 8.9 mg/dL (8.4-10.2) 01/10/22 04:00 Phosphorus 3.80 mg/dL (2.5-4.5) 01/05/22 04:30 Magnesium 2.00 mg/dL (1.7-2.3) 01/05/22 04:30 Ferritin 52.6 ng/mL (10.0-200.0) 11/05/21 06:11 Total Bilirubin 0.50 mg/dL (0.1-1.2) 11/17/21 05:56 Direct Bilirubin < 0.2 mg/dL (0-0.2) 11/11/21 04:28 Indirect Bilirubin 0.1 mg/dL 11/11/21 04:28 AST 36 units/L (5-40) 11/17/21 05:56 ALT 47 units/L (7-56) 11/17/21 05:56 Alkaline Phosphatase 107 units/L (35-129) 11/17/21 05:56 Ammonia 42.0 umol/L (25-60) 11/10/21 14:08 Lactate Dehydrogenase 187 units/L (91-180) H 11/05/21 06:11 Troponin T 0.045 ng/mL (0.00-0.029) H 11/29/21 20:15 C-Reactive Protein 22.20 mg/dL (0.00-1.30) H 11/05/21 06:11 NT-Pro-B Natriuret Pep 7895 pg/mL (0-900) H 11/03/21 22:32 Total Protein 5.1 g/dL (6.3-8.2) L 11/17/21 05:56 Albumin 2.2 g/dL (3.9-5) L 11/17/21 05:56 Albumin/Globulin Ratio 0.8 % 11/17/21 05:56 Triglycerides 59 mg/dL (2-149) 11/29/21 20:15 Cholesterol 74 mg/dL (50-199) 11/29/21 20:15 LDL Cholesterol Direct 25 mg/dL (50-130) L 11/29/21 20:15 HDL Cholesterol 41 mg/dL (40-59) 11/29/21 20:15 Cholesterol/HDL Ratio 1.80 % 11/29/21 20:15 Vitamin B12 1823 pg/mL (211-911) H 11/10/21 14:08 TSH 1.510 mlU/mL (0.270-4.200) 11/10/21 14:08 Urine Color Yellow (Yellow) 11/11/21 09:00 Urine Turbidity Slightly-cloudy (Clear) 11/11/21 09:00 Urine pH 5.0 (5.0-7.0) 11/11/21 09:00 Ur Specific [place] 1.009 (1.003-1.030) 11/11/21 09:00 Urine Protein <15 mg/dl mg/dL (Negative) 11/11/21 09:00 Urine Glucose (UA) Neg mg/dL (Negative) 11/11/21 09:00 Urine Ketones Neg mg/dL (Negative) 11/11/21 09:00 Urine Blood Mod (Negative) 11/11/21 09:00 Urine Nitrite Neg (Negative) 11/11/21 09:00 Urine Bilirubin Neg (Negative) 11/11/21 09:00 Urine Urobilinogen < 2.0 mg/dL (<2.0) 11/11/21 09:00 Ur Leukocyte Esterase Neg (Negative) 11/11/21 09:00 Urine WBC (Auto) < 1.0 /HPF (0.0-6.0) 11/11/21 09:00 Urine RBC (Auto) < 1.0 /HPF (0.0-6.0) 11/11/21 09:00 Fluid Type Pleural 01/06/22 13:40 Fluid Color Yellow 01/06/22 13:40 Fluid Appearance Hazy 01/06/22 13:40 Fluid WBC 273 /mm3 01/06/22 13:40 Fluid RBC 45 /mm3 01/06/22 13:40 Fluid Seg Neutrophils 47.0 % 01/06/22 13:40 Fluid Lymphocytes 22.0 % 01/06/22 13:40 Fluid Monocytes 10.0 % 01/06/22 13:40 Fluid Eosinophils 19.0 % 01/06/22 13:40 Fluid Basophils 2.0 % 01/06/22 13:40 Fluid Glucose 96 mg/dL (40-70) H 01/06/22 13:40 Fluid Total Protein < 3.0 (15.0-45.0) L 01/06/22 13:40 Fluid LDH 149 01/06/22 13:40 Vancomycin Trough 13.7 ug/mL (5.0-20.0) 01/08/22 06:33 Random Vancomycin 10.5 ug/mL (0-40.0) 01/04/22 05:00 Coronavirus (PCR) Negative (Negative) 11/10/21 08:30 Blood Type O POSITIVE 12/14/21 10:30 Antibody Screen Negative 12/14/21 10:30 Crossmatch See Detail 12/14/21 10:30 Gamble/IV: Voiding Method External Female Catheter Active Medications - Current Medications Current Medications: Generic Name Dose Route Start Last Admin Trade Name Freq PRN Reason Stop Dose Admin Acetaminophen 650 mg 12/14/21 04:12 01/01/22 11:45 Acetaminophen 325 Mg/10.15 Ml Oral Liqd Unit Dose FEEDTUBE 650 mg Q6H PRN Administration Non Cardiac Pain or Temp>100.5 Hydrocodone Bitart/Acetaminophen 1 each 11/21/21 10:00 01/10/22 09:11 Hydrocodone/Acetaminophen 10-325mg Tab FEEDTUBE 1 each TID YOSSI Administration Alprazolam 0.25 mg 12/30/21 09:00 01/10/22 04:14 Alprazolam 0.25 Mg Tab FEEDTUBE 0.25 mg Q8H PRN Administration Agitation Lipase/Protease/Amylase 1 each 11/08/21 11:09 Lipase 10,500/Protease 25,000/Amylase 43,750 (Units) Dr Lema FEEDTUBE PRN PRN For Clogged Feeding Tube Buspirone HCl 7.5 mg 12/30/21 10:00 01/10/22 09:10 Buspirone 5 Mg Tab FEEDTUBE 7.5 mg BID YOSSI Administration Dextrose 0 ml 11/10/21 10:52 12/30/21 00:48 Dextrose 10% *Hypoglycemia IV 50 ml PRN PRN Administration Hypoglycemia Docusate Sodium 100 mg 12/30/21 10:00 01/10/22 09:13 Docusate Sodium 100 Mg/10 Ml Oral Liqd FEEDTUBE Not Given BID YOSSI Furosemide 20 mg 01/08/22 10:00 01/10/22 09:11 Furosemide 20 Mg Tab PO 20 mg QDAY YOSSI Administration Gabapentin 100 mg 12/30/21 10:00 01/10/22 09:10 Gabapentin 100 Mg Cap FEEDTUBE 100 mg QDAY YOSSI Administration Hydrophilic Ointment 1 applic 11/06/21 04:02 Lip Therapy Vaseline TP Q2HR PRN Dry Lips Vancomycin HCl 1 gm in 250 mls @ 166.667 mls/hr 01/04/22 10:00 01/10/22 09:12 Vancomycin/Ns 1 Gm/250 Ml IV 01/26/22 11:29 166.667 mls/hr Q48H YOSSI Administration Lansoprazole 30 mg 11/24/21 22:00 01/10/22 09:11 Lansoprazole 30 Mg Solutab FEEDTUBE 30 mg BID YOSSI Administration Levothyroxine Sodium 125 mcg 12/31/21 06:00 01/10/22 07:50 Levothyroxine 125 Mcg Tab FEEDTUBE 125 mcg DAILY@0600 YOSSI Administration Melatonin 5 mg 12/05/21 22:00 01/09/22 22:43 Melatonin 5 Mg Tab PO 5 mg QHS YOSSI Administration Metoprolol Tartrate 6.25 mg 12/30/21 10:00 01/10/22 09:11 Metoprolol Tartrate 25 Mg Tab FEEDTUBE 6.25 mg BID YOSSI Administration Midodrine 5 mg 12/30/21 09:00 01/10/22 13:16 Midodrine 5 Mg Tab FEEDTUBE 5 mg TID@0800,1200,1600 YOSSI Administration Multi-Ingred Cream/Lotion/Oil/Oint 1 applic 11/06/21 04:02 Mineral Oil/Petrolatum, White Ophth Oint 3.5 Gm OU Q4HR PRN Dry Eye(s) Ondansetron HCl 4 mg 12/05/21 10:00 01/10/22 04:14 Ondansetron 4 Mg/2 Ml Inj IV 4 mg Q8H PRN Administration Nausea And Vomiting Polyethylene Glycol 17 gm 12/30/21 10:00 01/10/22 09:13 Polyethylene Glycol 3350 17 Gm Powder FEEDTUBE Not Given QDAY YOSSI Pravastatin Sodium 20 mg 12/30/21 22:00 01/09/22 22:58 Pravastatin 20 Mg Tab FEEDTUBE 20 mg QHS YOSSI Administration Quetiapine Fumarate 25 mg 12/30/21 10:00 01/10/22 09:12 Quetiapine 25 Mg Tab FEEDTUBE 25 mg QAM YOSSI Administration Quetiapine Fumarate 50 mg 12/30/21 22:00 01/09/22 22:43 Quetiapine 25 Mg Tab FEEDTUBE 50 mg QHS YOSSI Administration Senna 17.6 mg 12/29/21 11:00 01/10/22 09:12 Sennosides Oral Liqd 8.8 Mg/5 Ml Oral Liqd FEEDTUBE Not Given Q12HR YOSSI Simple Syrup 15 ml 11/08/21 11:09 Simple Syrup 15 Ml FEEDTUBE PRN PRN Hypoglycemia Simple Syrup 30 ml 11/08/21 11:09 Simple Syrup 15 Ml FEEDTUBE PRN PRN Hypoglycemia Sodium Bicarbonate 325 mg 11/08/21 11:09 01/09/22 20:25 Sodium Bicarbonate 325 Mg Tab FEEDTUBE 325 mg PRN PRN Administration For Clogged Feeding Tube Sodium Chloride 10 ml 11/04/21 10:00 01/10/22 09:12 Sodium Chloride 0.9% 10 Ml Flush Syringe IV 10 ml BID YOSSI Administration Sodium Chloride 10 ml 11/04/21 02:03 01/09/22 06:35 Sodium Chloride 0.9% 10 Ml Flush Syringe IV 10 ml PRN PRN Administration LINE FLUSH Spironolactone 25 mg 12/30/21 10:00 01/10/22 09:11 Spironolactone 25 Mg Tab FEEDTUBE 25 mg QDAY YOSSI Administration Sucralfate 1 gm 12/30/21 12:00 01/10/22 13:16 Sucralfate 1 Gm/10 Ml Oral Liqd FEEDTUBE 1 gm Q6HR YOSSI Administration Trazodone HCl 50 mg 12/04/21 22:00 01/09/22 22:44 Trazodone 50 Mg Tab PO 50 mg QHS YOSSI Administration Nutrition/Malnutrition Assess - Dietary Evaluation Nutrition/Malnutrition Findings: Nutrition Notes Start: 11/04/21 17:16 Freq: Status: Active Protocol: Document 01/02/22 12:11 [facility] (Rec: 01/02/22 12:17 [facility] [id number]) Nutrition Notes Initial or Follow up Reassessment Current Diagnosis Diabetes,Heart Failure, Respiratory Failure Other Pertinent Diagnosis Bacteremia, pneu, Bilat pleural effusion, Agitation/ anxiety Current Diet TF - Vital AF 1.2 at 45ml/hr Labs/Tests Na 131 K 3.5 BUN 27 Pertinent Medications 25% Human Albumin, Colace, Lasix, Reglan, Miralax, 40mEq KCl, Senokot, Sucralfate Height 5 ft Weight 73.3 kg [place] Body Weight (kg) 45.45 BMI 31.5 Weight change and time frame Current wt obtained from bed scale Weight Status Obese Subjective/Other Information Observed TF infusing at goal rate. Pt remains on vent support. Percent of energy/protein needs met: 100% energy 89% pro Burn Absent Trauma Absent #1 Nutrition Diagnosis Inadequate oral intake Diagnosis Progress(for reassessment Continues documentation) Is patient on ventilator? Yes Is Patient Ambulatory and/or Out of Bed No REE-([facility]-confined to bed) 1338.492 Kcal/Kg value to use for calculation 17 Approximate Energy Requirements Using 1246 kcal/Kg Calculation Used for Recommendations Kcal/kg Additional Notes Pro needs 2g/kg IBW: 91g/day Fluid needs per MD. Nutrition Intervention Nutrition Support: Continue Vital AF 1.2 at 45ml/ hr with 70ml water flush q4h. Kcal 1,296 Protein (gm) 81 Carbohydrates (gm) 119 Fat (gm) 58 Fluid (mL) 876 Fiber (gm) 6 Goal #1 TF tolerance Goal #2 TF to meet at least 75% energy and pro needs Follow-Up By: 01/09/22 Additional Comments F/U: stable TF, vent status, wt
[2022-01-10] MEDS: traZODone 50 MG TAB PO SCH (22:19)
[2022-01-10] MEDS: MELATONIN 5 MG TAB PO SCH (22:19)
[2022-01-10] MEDS: PRAVASTATIN 20 MG TAB FEEDTUBE SCH (22:20)
[2022-01-11] MEDS: ONDANSETRON 4 MG/2 ML INJ IV PRN ×3 (03:25→21:30)
[2022-01-11] MEDS: ACETAMINOPHEN 325 MG/10.15 ML ORAL LIQD UNIT DOSE FEEDTUBE PRN (03:35)
[2022-01-11] MEDS: ALPRAZolam 0.25 MG TAB FEEDTUBE PRN ×2 (03:36→23:53)
[2022-01-11] MEDS: LEVOTHYROXINE 125 MCG TAB FEEDTUBE SCH (06:08)
[2022-01-11] MEDS: SUCRALFATE 1 GM/10 ML ORAL LIQD FEEDTUBE SCH ×4 (06:08→23:53)
[2022-01-11] MEDS: MIDODRINE 5 MG TAB FEEDTUBE SCH ×4 (06:09→17:33)
[2022-01-11] MEDS: HYDROcodone/ACETAMINOPHEN 10-325MG TAB FEEDTUBE SCH ×3 (08:41→20:12)
[2022-01-11] MEDS: METOPROLOL TARTRATE 25 MG TAB FEEDTUBE SCH ×2 (09:37→21:07)
[2022-01-11] MEDS: FUROSEMIDE 20 MG TAB PO SCH (09:38)
[2022-01-11] MEDS: QUEtiapine 25 MG TAB FEEDTUBE SCH ×2 (09:38→21:06)
[2022-01-11] MEDS: busPIRone 5 MG TAB FEEDTUBE SCH ×2 (09:38→21:06)
[2022-01-11] MEDS: SPIRONOLACTONE 25 MG TAB FEEDTUBE SCH (09:38)
[2022-01-11] MEDS: LANSOPRAZOLE 30 MG SOLUTAB FEEDTUBE SCH ×2 (09:38→21:08)
[2022-01-11] MEDS: POLYETHYLENE GLYCOL 3350 17 GM POWDER FEEDTUBE SCH (09:39)
[2022-01-11] MEDS: DOCUSATE SODIUM 100 MG/10 ML ORAL LIQD FEEDTUBE SCH ×2 (09:39→21:09)
[2022-01-11] MEDS: GABAPENTIN 100 MG CAP FEEDTUBE SCH (09:39)
[2022-01-11] MEDS: SENNOSIDES ORAL LIQD 8.8 MG/5 ML ORAL LIQD FEEDTUBE SCH ×2 (09:39→21:08)
--- NOTE | 2022-01-11 13:26 | Progress Note ---
Assessment and Plan Assessment and plan: History Interval history: This is an 82-year-old female with DM, HTN , CHB s/p PPM, CAD s/p PCI and arthritis who presented to the emergency department on 11/04 for shortness of breath ongoing for the past 3 days, cough and according to family a fever of 102.2. Upon arrival of EMS patient was found to be tachypneic and hypoxic with SPO2 of 76% on room air which later improved to 88% on nonrebreather. Work-up in the emergency department included a CXR which showed bilateral interstitial pulmonary edema with bilateral pleural effusions and bibasilar opacities, leukocytosis and anemia with a hemoglobin of 6.1. Patient was admitted to the hospitalist service with acute anemia, acute hypoxic respiratory failure, bilateral pneumonia and COVID-19 PUI with consults to pulmonology, infectious disease and later cardiology. Patient was eventually intubated in the emergency department on 11/06. Hospital Course to date: 11/04/2021: Empiric therapy with iv levaquin/vancomycin. COVID PCR pending. Will consult ID. PCCM consulted, will follow recs. Hypotensive this AM, ordered bolus and fluids at 150 cc/hr. May require pressor support if bp does not improve. 11/05/2021: GBS on bcx +, currently on rocephin IV. Currently on bipap due to respiratory distress overnight. Worsening BL opacities on CXR. May be volume overload vs pneumonia. Unfortunately bp too low for lasix at this point. WIll continue levophed and bipap. Once able to tolerate, may do trial of albumin/lasix. Call attempt made to Niraj, no response. Will try again tomorrow to update. 11/06/2021: Decompensated overnight requiring intubation. CXR shows worsening interstitial infiltrates. Currenlty on dopamine, levophed, vasopressin. PICC line ordered. Advised RN to place gamble for I/O monitoring. Would benefit from diuresis but very volume overloaded. Prognosis guarded 11/08: Off sedation this am, remains unresponsive only grimace to pain. Hold all sedatives agents for now, patient is off pressors this am. Hypernatremia from today's lab- D5W X1bag, and low K repleted, repeat lab in the am. Severe constipation also noted from KUB, BR added. 11/09: Sudden SPO2 drop in the 60s this am. Patient was manually bagged and deep suctioned. Patient is currently stable on the vent, repeat CXR with no significant change. D/w CCM Mucomyst and brochodilator added. Patient mentation is unchanged, continue to hold off on sedative agents. Neurology consulted. 11/10: Acute DVT noted on bilateral lower extremity Doppler ultrasound therefore she was started on Lovenox treatment dose. Failed SBT. Hypernatremia and hyperchloremia noted, free water flush adjusted. 11/11: Patient noted to be febrile with increasing of the cytosis, UA/BC sent and CXR ordered. ID escalated antibiotics to cefepime. CXR demonstrated mucous plug, bedside bronchoscopy was performed and O ETT was changed over bougie from 6 cm to 7.5. Patient was noted to have a pneumothorax postprocedure and chest tube was placed. Family updated by [facility]. Free water flush increased and will add Jaswant supplementation. 11/12: Patient not noted to follow commands, hypernatremia worsen/persist, increasing free water flush, potassium and magnesium and phosphorus repleted. Hemoglobin noted to be 7./24.5 from 7.03/12 yesterday. We will continue to trend and monitor. Vent changes per [facility]. Repeat CXR showed no residual pneumothorax. Consider waterseal tomorrow. Given persistent leukocytosis antibiotics escalated to cefepime per ID. 11/13: Remains on cefepime and vancomycin, vent changes per [facility]. Anemia noted and given 1 unit PRBC. And beta-charleen held in setting of Levophed drip infusing. Remains on fentanyl drip. 11/14: Patient put on CPAP trial by [facility], will continue chest tube until after extubation. Will rest on assist control. CT brain was cancelled by radio television announcer and reordered. 11/15: Patient removed chest tube overnight. Will obtain cxr. remains on low dose levo. CTH completed with no acute findings. RT to place on CPAP. 11/16: Hypernatremia/hyperchloremia noted on the increase of day water flushes. Anemia noted and ordered PRBC. asked RT to place on cpap but not done yet 11/17: Patient remains on the vent, awake and following commands. H&H stable s/p 2units PRBCs. GI on consult, no intervention at this time. Will continue protonix gtt and serial H&H Q6hrs. Keep patient NPO for now, D5w added for hypernatremia and NPO status. Plan for IVC filter placement today by Vascular. 11/18: Patient is s/p IVC filter. H&H continue to trend down, hbg 6.1 this am, 1 unit of PRBCs ordered. Plan for possible EGD today by GI. Keep patient NPO, continue PPI drip and serial H&H Q6hrs. Electrolytes repleted, repeat lab in the am 11/19: S/p EGD- larger duodenal ulcer noted, see operative note. GI recommendations noted also noted. H&H stable this am. Keep patient on protonix gtt for now. Will keep patient NPO, continue IVF and serial H&H for now. Electrolytes repleted, repeat labs in the am 11/20: Very agitated and restless this am, fentanyl gtt resumed. Patient remains on protonix gtt, H&H remains stable. Will switch protonix gtt to IV BID, continue carafate and okay to resume meds at this time. Will F/u with GI to see if TF can be resumed. Gamble was reinserted overnight for retention. Electrolytes repleted, repeat in the am. Plan for possible PST today for possible extubation per CCM. 11/21: Patient is now on seroquel and patient's home buspar resumed. Patient more calm this morning, fentanyl gtt is off. H&H remains stable and patient is tolerating TF. Patient had a runs of Vtach/PVCs this am, BB added per Cardio. Continue daily PS and wean trial for possible extubation. 11/22: Back on fentanyl gtt overnight , RASS o to -1, following commands. Patient failed PST this am due to increased work of breathing and low SPO2, ABG pending. Patient is also with worsen pitting edema, lasix is still on hold. Will discuss with cardio and CCM to possibly resume lasix. 11/23: MARIA DEL CARMEN overnight. Patient failed PST again this am. Per CCM plan for possible trach and PEG, hold off on IV lasix for now. General surgery consulted and family is aware of possible Trach and PEG. 11/24: Trach/PEG pending this week, continue SBT/SAT as tolerated. No acute events reported overnight. 11/25: Patient was n.p.o. overnight and will remain n.p.o. tonight for trach/PEG tomorrow morning. She failed to support trial again. KUB obtained due to distended belly. 11/26: Patient scheduled for tracheostomy and PEG tube placement today, has been n.p.o. since midnight. No acute events reported overnight. [facility] ordered simethicone scheduled. 11/27: No acute events reported overnight, patient received trach/PEG yesterday. Has been on feedings since last night. Still awaiting LTAC placement. 11/28: Patient magnesium repleted, repeat a.m. labs, SBT 11/29: Patient complains of chest pain but ECG obtained which showed no acute findings, ordered troponin. Patient failed CPAP yesterday and was trialed again today. levophed was restarted but will aggressively wean 11/30: Patient failed SBT. Continue supportive care. Started gabapentin today 12/01: MARIA DEL CARMEN overnight. Continue daily PST. Case management to arrange possible placement 12/02: Report of dark stools overnight, patient is hemodynamically stable. H&H stable, patient is on PPI. Will continue to trend H&H. Continue daily PST as tolerated. Awaiting LTAC vs SNF placement. 12/03: Hypotensive overnight, requiring low dose pressors. S/p X3 days of gentle diurese. Will continue to monitor, wean off pressors as tolerated for MAP of 65. Patient Failed PST yesterday, case management to follow up with insurance for possible LTAC placement. Continue daily PST as tolerated. PT eval and treat ordered. 12/04: Increased agitation and anxiety overnight, remains on buspar and seroquel, trazadone added to promote rest. Patient is now working with PT, keep patient engage and awake during the day so she can rest at night. No BM for over 5 days, BR was adjusted. Patient did not tolerate PST again yesterday, continue daily PST as tolerated. Continue to titrate pressor for MAP above 65. Pending possible LTAC placement, case management to arrange. 12/05: Still not getting much rest overnight, will add melatonin for sleep. Continue to engage patient during the day and promote rest at night. TF was held due to concern for possible bleeding, H&H remains stable and stools normal this am. Resume TF and continue PPI and carafate. Remains on low dose levophed, titrate as tolerated. Continue daily PST. Possible LTAC placement, awaiting approval. 12/06: MARIA DEL CARMEN overnight. Patient rested overnight. Continue supportive measures. Daily PST as tolerated. Awaiting possible LTAC placement 12/07: MARIA DEL CARMEN overnight. Plan for Tpiece trial today. Continue current supportive measures. Possible LTAC placement 12/08: Patient placed on pressure support trial again today, started on Xanax, no acute events reported overnight. Awaiting insurance approval for LTAC. 12/09: Levophed discontinued, LTAC transfer denied, started on midodrine and Lasix, ultrasound chest pending, started on Xanax 0.[address] De León updated family at bedside today. Started on Dilaudid every 3 hours as needed. 12/10: Patient placed on CPAP trial this morning, no acute events reported overnight. Will order ultrasound-guided thoracentesis. 12/11: Patient had a thoracentesis today, will decrease Xanax dosage and continue midodrine and diuresing. Patient failed CPAP today. 12/12: Patient not tolerate CPAP trials today, no acute events reported overnight 12/13: No acute events overnight. continue PSV trials as tolerated. Daughter updated at bedside 12/14: Patient noted to be anemic today, ordered gastric occult. Patient seems to be oversedated therefore Xanax changed to as needed and fentanyl patch discontinued. We will continue to monitor hyponatremia. 12/15: MARIA DEL CARMEN overnight. s/p 1unit of PRBCs, H&H stable this am, no signs of any active bleeding. Continue daily PST as tolerated. Awaiting placement. 12/16: Hypertensive this am, Midodrine decreased. Continue daily PST. MARIA DEL CARMEN overnight 12/17: Patient Hgb dropped to 6 this am, no s/s of any active bleeding, VSS. Patient received 1unit of PRBC, will continue to trend H&H. Patient was pancultured and back on IV Abx due to persistent fevers yesterday. ID is also back on the case. Continue IV Abx per ID and f/u on cultures data for sensitivity. Patient also failed PST yesterday, continue daily PST as tolerated. Electrolytes repleted, repeat labs in the am. 12/18: Patient blood cultures is growing GPC 4 out 4 bottles. PICC line D/Rivas, patient is already on IV Abx-cefepine and Vanc and ID is following. Patient remains hemodynamically stable. Daily PST as tolerated adn PRN Benzo for anxiety. 12/19: MARIA DEL CARMEN overnight. Culture data noted, continue IV Abx per ID. Orders placed for repeat Bculture. Gamble D/C overnight, patient is voiding. Check bladder scan as needed for retention. Patient failed PST again today. Continue daily PST as tolerated. 12/20: Fevers improved, Cultures +MRSA, on Vanco per ID. Repeat 2D Echo to r/o endocarditis. Patient continue to fail PST, PEEP increased to 8 today. Continue pulmonary hygiene and vent wean per CCM. Sodium tab added for hyponatremia. 12/22: Patient on pressure support trial for approximately 4 hours today, midodrine dosage increased due to hypotension. Lasix discontinued. 12/23: Started on a.m. Seroquel dose, midodrine increased to 10 mg 3 times daily, 500 mL normal saline bolus. 12/24: Seroquel dose changed (25 every morning, 75 nightly). updated at bedside by Dr. De León. CPAP trials as tolerated. Continue vancomycin. Awaiting placement. 12/25: Continue CPAP as tolerated, added gasx for distention. Continue supportive care 12/26: Patient failed PSV this AM. no acute events overnight. 12/27: GI re-consulted due to abdominal distention. No acute events reported overnight. CPAP trials as tolerated. Dr. Mckenna will get a KUB to rule out po ssible obstruction. 12/28: KUB shows no acute process, CXR shows improvement. CPAP trials as tolerat ed. 12/29: CT Abd/pelvis noted with moderated bilateral pleural effusion, anasarca, and ascites. X1dose of IV lasix administered. D/w CCM and GI orders plan for thora and paracentesis by IR. Will also start patient on aldactone Qday. Patient is tolerating trickle feeds this am, continue TF and BR adjusted for constipation. Plan of care was discussed with patient and her at the bedside. Thorough discussion on patient's overall poor prognosis and that patient will most likely be vent dependent. Patient's voiced understanding of the info given. All questions and concerns were voiced at this time. 12/30: Patient did not tolerate thoracentesis in IR yesterday due to change in LOC and hypoxia. Plan for possible bedside thoracentesis and paracentesis today. Patient remains afebrile. Patient required fdc IV abx therapy [id number] left, orders placed for a PICC. Patient remains with sign. Piting edema and anasarca, X1 does of PO Zaroxolyn and 2m of IV lasix given. Electrolytes repleted, repeat lab in the am. 12/31: Tolerated Rt. thoracentesis at the bedside yesterday, 1.4L removed. Patient remains stable on the vent this am, tolerating CPAP today PS dropped to 14. Recent CXR noted, left pleural effusion improved. Patient tolerated gentle diurese yesterday, good urine output reported. D/w CCM hold off on Left thoracentesis today, continue PO Aldactone and additonal zaroxolyn and IV lasix again today. F/u CXR in the am. 01/01: This am CXR noted with worsening bilateral pleural effusion. Patient is stable and tolerating PST this am, however PS is back up to 20 this am. BP is soft this am will hold off on IV diuretic for today, continue PO Aldactone. D/w CCM continue gentle diurese as tolerated. Will reassess in the am. Continue support care. 01/02: MARIA DEL CARMEN overnight. VSS this am, tolerating PST. X1dose of 25% IV Albumin following with 20mg IV Lasix today. Continue daily gentle diurese if hemodynamics tolerate it. Continue to monitor and replace electrolytes as needed 01/03: Abdominal distention and vomiting overnight, 600cc of gastric residual removed, TF held. KUB with no acute abnormality. Reglan added X2days, resume TF, and continue BR. Patient is tolerating PST this am. Hemodynamics remains stable, will continue gentle IV diurese. close monitoring to renal function and electrolytes. 01/04: Tolerating TF, nausea/vomiting resolved, last BM on 01/03. Continue Reglan X1 more day. Patient continue to tolerate PST. D/W CCM continue gentle diurese. F/U CXR in the am. Possible US thoracentesis tomorrow. 01/05: no acute events overnight. scheduled for thoracentesis today but procedure pushed to tomorrow. TF restarted and will be NPO post MN. 01/06: planned thoracentesis today. Working with CM for ltac/snf approval. 01/07: s/p thoracentesis 120 cc appears to have been removed. Pulm recommendations noted, agree with continued diuresis and weaning. Continued planning with CM for ltac/snf placement. 01/08: No new issues. Continue vent weaning per pulmonary. Continuing to work with CM for placement. 01/09: No new issues. Continue vent weaning per pulmonary. Continuing to work with CM for placement. Ordered BMP for tomorrow to check kidney function as patient is currently being diuresed. 01/10: No new issues. Continue vent weaning/diuresis as directed by pulmonary medicine.BMP demonstrates normal renal function and potassium. Sodium and Chloride consistent with prior labs. Will recheck BMP in 2 days. Placement continues to be an issue as patient has been denied at all facilities. Will reasses with CM on wednesday. 01/11: Emesis overnight. Do not suspect that she is obstructed as she had 2 BM reported. Will order Reglan prn, drop TF rate to goal of 30 cc/hr. Will continue to work on placement. Assessment and Plan Neuro : Anxiety, chronic pain -Neurology consulted, appreciate recommendations -CT brain showed no acute events -EEG interpreted as abnormal record due to diffuse slowing noted throughout the recording, suggestive of encephalopathic process and/or drug effect, possibilities of postictal state cannot be totally excluded. Clinical correlation is in order -MRI brain not obtained-> patient has metal in her body -Repeat CT head with no acute findings -Reorientation as needed -Ammonia 42, B12 1823, TSH 1.5 -BuSpar, Seroquel, [place], gabapentin -prn xanax and Dilaudid Cardio: Acute Heart failure with reduced EF, h/o chronic heart block s/p PPM, HTN, CAD s/p PCI (2004), Moderate pulmonary HTN, cardiomyopathy -s/p vasopressor support with levophed -11/04 echocardiogram shows EF 30 to 35%, Moderate pulmonary HTN RVSP 49 -3/4 echo with 35-40% EF -Cardiology consulted, appreciate recommendations -Continue beta-charleen and statin therapy -Midodrine (titrate as needed) -Not on aspirin due to allergy -Blood pressure monitoring per protocol -As needed nitroglycerin Resp: Acute hypoxic respiratory failure secondary to bilateral pneumonia, bilateral pleural effusion. Right pneumothorax (resolved) -COVID-19 PCR negative -Intubated on 11/06 with 6.00 ETT at 18 at the lip and changed over bougie on 11/11-7.50 ETT at 20 at the lip -See RT notes for titration -PSV as tolerated -Surgery consult for trach -Received trach/PEG on 11/26 -S/p bedside bronchoscopy on 11/11 complicated by pneumothorax -S/p chest tube placement for right pneumothorax and dislodgment by patient on 11/15 -ABG/CXR per CCM -VAP bundle -Right chest wall ultrasound showed pleural effusion s/p chest tube -12/11 US thoracentesis removed 1L fluid -12/29 US thoracentesis removed 1.4L fluid -01/06 thoracentesis planned -SPO2 monitoring GI: S/p GI bleed, duodenal ulcer, transaminitis -GI consulted, appreciate recommendations-signed off -Nutrition consult for tube feeding, currently on nepro TF 45 cc/hr, dropped to 30 cc/hr due to concerns for emesis. -BR: Senokot -s/p peg 11/26 -H2 charleen -Carafate -24-hour +428 ml -10/2021 Gastric occult positive -> EGD-> duodenal ulcer -12/14 occult stool positive - reglan prn. : Urinary retention (resolved), hyponatremia, hypochloremia -Strict intake and output -Trend BMP ID: Septic shock (POA-resolved), bilateral pneumonia, MRSA bacteremia/pna -Infectious disease consulted, appreciate recommendations -COVID-19 PCR negative -Presented with fevers, leukocytosis and hypotension -11/04 blood cultures positive with a group B strep bacteremia 12/19 however repeat blood cultures on the with no growth to date -Echo showed no evidence of vegetation -repeat echo showed EF 35-40 % with no vegetations -ABX therapy: IV vancomycin for 4 weeks (12/16-01/26) -Monitor WBC and fever curve -Bedside bronchoscopy for mucous plug on CXR 11/11 -f/u blood cultures Heme: Acute DVT in the right external iliac vein, common femoral vein, superior aspect of femoral vein, Acute microcytic anemia -Evidenced on bilateral upper lower extremity ultrasound -S/p 7 unit PRBC -Trend CBC -Transfuse for hemoglobin less than 7 -heparin gtt dc d/t anemia -S/p IVC filter Endo: h/o DM and hypothyroidism -Continue home Synthroid -SSI -Accu-Cheks every 6 -Avoid hypoglycemia Disposition: Denied LTAC placement by insurance, appeal denied. Awaiting subacute rehab placement The high probability of a clinically significant, sudden or life threatening deterioration of the [pulm,mental health, CV] system(s) required my full and direct attention, intervention and personal management. The aggregate critical care time was [60] minutes. This time is in addition to time spent performing reported procedures but includes the following: [x] Data Review and interpretation [x] Patient assessment and monitoring of vital signs [x] Documentation [x] Medication orders and management Disposition Plan: imcu Total Time Spent with Patient (Minutes): 60 History Interval history: Nasueous overnight, vomiting episode. TF were stopped. Patient seen and evaluated. In no distress. Resting comfortably. Per RN patient had BM x2. No further episodes of emesis. Hospitalist Physical - Physical exam Narrative exam: Physical Exam: VITAL SIGNS: Reviewed. GENERAL: The patient appears normally developed, Vital signs as documented. Frail appearing elderly woman. HEAD: No signs of head trauma. EYES: Pupils are equal. Extraocular motions intact. EARS: Hearing grossly intact. MOUTH: Oropharynx is normal. NECK: No adenopathy, no JVD. CHEST: Bl rhonchi CARDIAC: Regular rate and rhythm. S1 and S2, without murmurs, gallops, or rubs. VASCULAR: No Edema. Peripheral pulses normal and equal in all extremities. ABDOMEN: Soft, non tender and non distended. No rebound or guarding, and no masses palpated. Bowel Sounds normal. MUSCULOSKELETAL: Good range of motion of all major joints. Extremities without clubbing, cyanosis or edema. NEUROLOGIC EXAM: Alert and oriented x 4. no focal sensory or strength deficits. PSYCHIATRIC: anxious appearing SKIN: detail exam as documented in skin assessment - Constitutional Vitals: Temp Pulse Resp BP Pulse Ox 98.1 F 70 16 146/68 100 01/11/22 08:00 01/11/22 12:00 01/11/22 12:00 01/11/22 12:00 01/11/22 12:00 General appearance: Present: no acute distress, other (Trach and on the vent) HEART Score - HEART Score Troponin: Troponin T 0.045 ng/mL (0.00-0.029) H 11/29/21 20:15 Results - Labs CBC & Chem 7: 01/06/22 04:06 01/10/22 04:00 Labs: Laboratory Last Values WBC 7.7 K/mm3 (4.5-11.0) 01/06/22 04:06 RBC 2.89 M/mm3 (3.65-5.03) L 01/06/22 04:06 Hgb 7.7 gm/dl (10.1-14.3) L 01/06/22 04:06 Hct 23.8 % (30.3-42.9) L 01/06/22 04:06 MCV 82 fl (79-97) 01/06/22 04:06 MCH 27 pg (28-32) L 01/06/22 04:06 MCHC 33 % (30-34) 01/06/22 04:06 RDW 18.0 % (13.2-15.2) H 01/06/22 04:06 Plt Count 225 K/mm3 (140-440) 01/06/22 04:06 Add Manual Diff Complete 12/20/21 04:54 Total Counted 100 12/20/21 04:54 Seg Neutrophils % [employer] Sales [employer] 11/06/21 15:50 Seg Neuts % (Manual) 88.0 % (40.0-70.0) H 12/20/21 04:54 Band Neutrophils % 0 % 12/20/21 04:54 Lymphocytes % (Manual) 6.0 % (13.4-35.0) L 12/20/21 04:54 Reactive Lymphs % (Man) 0 % 12/20/21 04:54 Monocytes % (Manual) 5.0 % (0.0-7.3) 12/20/21 04:54 Eosinophils % (Manual) 1.0 % (0.0-4.3) 12/20/21 04:54 Basophils % (Manual) 0 % (0.0-1.8) 12/20/21 04:54 Metamyelocytes % 0 % 12/20/21 04:54 Myelocytes % 0 % 12/20/21 04:54 Promyelocytes % 0 % 12/20/21 04:54 Blast Cells % 0 % 12/20/21 04:54 Nucleated RBC % Not Reportable 12/20/21 04:54 Seg Neutrophils # Man 10.8 K/mm3 (1.8-7.7) H 12/20/21 04:54 Band Neutrophils # 0.0 K/mm3 12/20/21 04:54 Lymphocytes # (Manual) 0.7 K/mm3 (1.2-5.4) L 12/20/21 04:54 Abs React Lymphs (Man) 0.0 K/mm3 12/20/21 04:54 Monocytes # (Manual) 0.6 K/mm3 (0.0-0.8) 12/20/21 04:54 Eosinophils # (Manual) 0.1 K/mm3 (0.0-0.4) 12/20/21 04:54 Basophils # (Manual) 0.0 K/mm3 (0.0-0.1) 12/20/21 04:54 Metamyelocytes # 0.0 K/mm3 12/20/21 04:54 Myelocytes # 0.0 K/mm3 12/20/21 04:54 Promyelocytes # 0.0 K/mm3 12/20/21 04:54 Blast Cells # 0.0 K/mm3 12/20/21 04:54 WBC Morphology Not Reportable 12/20/21 04:54 Hypersegmented Neuts Not Reportable 12/20/21 04:54 Hyposegmented Neuts Not Reportable 12/20/21 04:54 Hypogranular Neuts Not Reportable 12/20/21 04:54 Smudge Cells Not Reportable 12/20/21 04:54 Toxic Granulation Not Reportable 12/20/21 04:54 Toxic Vacuolation Not Reportable 12/20/21 04:54 Dohle Bodies Not Reportable 12/20/21 04:54 Pelger-Huet Anomaly Not Reportable 12/20/21 04:54 Irina Rods Not Reportable 12/20/21 04:54 Platelet Estimate Consistent w auto 12/20/21 04:54 Clumped Platelets Not Reportable 12/20/21 04:54 Plt Clumps, EDTA Not Reportable 12/20/21 04:54 Large Platelets Not Reportable 12/20/21 04:54 Giant Platelets Not Reportable 12/20/21 04:54 Platelet Satelliting Not Reportable 12/20/21 04:54 Plt Morphology Comment Not Reportable 12/20/21 04:54 RBC Morphology Not Reportable 12/20/21 04:54 Dimorphic RBCs Not Reportable 12/20/21 04:54 Polychromasia Not Reportable 12/20/21 04:54 Hypochromasia Not Reportable 12/20/21 04:54 Poikilocytosis Not Reportable 12/20/21 04:54 Anisocytosis 1+ 12/20/21 04:54 Microcytosis Not Reportable 12/20/21 04:54 Macrocytosis Not Reportable 12/20/21 04:54 Spherocytes Not Reportable 12/20/21 04:54 Pappenheimer Bodies Not Reportable 12/20/21 04:54 Sickle Cells Not Reportable 12/20/21 04:54 Target Cells Not Reportable 12/20/21 04:54 Tear Drop Cells Not Reportable 12/20/21 04:54 Ovalocytes Not Reportable 12/20/21 04:54 Helmet Cells Not Reportable 12/20/21 04:54 Odonnlel-Handley Bodies Not Reportable 12/20/21 04:54 [place] Rings Not Reportable 12/20/21 04:54 [place] Cells Not Reportable 12/20/21 04:54 Bite Cells Not Reportable 12/20/21 04:54 Crenated Cell Not Reportable 12/20/21 04:54 Elliptocytes Not Reportable 12/20/21 04:54 Acanthocytes (Spur) Not Reportable 12/20/21 04:54 Rouleaux Not Reportable 12/20/21 04:54 Hemoglobin C Crystals Not Reportable 12/20/21 04:54 Schistocytes Not Reportable 12/20/21 04:54 Malaria parasites Not Reportable 12/20/21 04:54 Godfrey Bodies Not Reportable 12/20/21 04:54 Hem Pathologist Commnt No 12/20/21 04:54 PT 16.9 Sec. (12.2-14.9) H 01/06/22 04:06 INR 1.23 (0.87-1.13) H 01/06/22 04:06 APTT 29.2 Sec. (24.2-36.6) 11/26/21 05:00 D-Dimer 2655.00 ng/mlDDU (0-234) H 11/11/21 04:28 ABG pH 7.479 pH Units (7.350-7.450) H 12/16/21 20:52 ABG pCO2 37.5 mm Hg 12/16/21 20: ABG pO2 79.3 mm Hg (80.0-90.0) L 12/16/21 20: ABG HCO3 27.3 mmol/L (20.0-26.0) H 12/16/21 20:52 ABG O2 Saturation 97.0 % (95.0-99.0) 12/16/21 20: ABG O2 Content 12.3 (0.0-44) 12/16/21 20: ABG Base Excess 3.6 mmol/L (-2.0-3.0) H 12/16/21 20: ABG Hemoglobin 9.1 gm/dl (12.0-16.0) L 12/16/21 20: ABG Carboxyhemoglobin 1.6 % (0.0-5.0) 12/16/21 20: ABG Methemoglobin 0.5 % (0.0-1.5) 12/16/21 20: Oxyhemoglobin 94.9 % (95.0-99.0) L 12/16/21 20: FiO2 30 % 12/16/21 20: Sodium 133 mmol/L (137-145) L 01/10/22 04:00 Potassium 4.0 mmol/L (3.6-5.0) 01/10/22 04:00 Chloride 92.6 mmol/L (98-107) L 01/10/22 04:00 Carbon Dioxide 31 mmol/L (22-30) H 01/10/22 04:00 Anion Gap 13 mmol/L 01/10/22 04:00 BUN 29 mg/dL (7-17) H 01/10/22 04:00 Creatinine 0.5 mg/dL (0.6-1.2) L 01/10/22 04:00 Estimated GFR > 60 ml/min 01/10/22 04:00 BUN/Creatinine Ratio 58 % 01/10/22 04:00 Glucose 115 mg/dL (65-100) H 01/10/22 04:00 POC Glucose 136 mg/dL (70-105) H 01/11/22 11:14 Lactic Acid 3.70 mmol/L (0.7-2.0) H* 11/03/21 22:32 Calcium 8.9 mg/dL (8.4-10.2) 01/10/22 04:00 Phosphorus 3.80 mg/dL (2.5-4.5) 01/05/22 04:30 Magnesium 2.00 mg/dL (1.7-2.3) 01/05/22 04:30 Ferritin 52.6 ng/mL (10.0-200.0) 11/05/21 06:11 Total Bilirubin 0.50 mg/dL (0.1-1.2) 11/17/21 05:56 Direct Bilirubin < 0.2 mg/dL (0-0.2) 11/11/21 04:28 Indirect Bilirubin 0.1 mg/dL 11/11/21 04:28 AST 36 units/L (5-40) 11/17/21 05:56 ALT 47 units/L (7-56) 11/17/21 05:56 Alkaline Phosphatase 107 units/L (35-129) 11/17/21 05:56 Ammonia 42.0 umol/L (25-60) 11/10/21 14:08 Lactate Dehydrogenase 187 units/L (91-180) H 11/05/21 06:11 Troponin T 0.045 ng/mL (0.00-0.029) H 11/29/21 20:15 C-Reactive Protein 22.20 mg/dL (0.00-1.30) H 11/05/21 06:11 NT-Pro-B Natriuret Pep 7895 pg/mL (0-900) H 11/03/21 22:32 Total Protein 5.1 g/dL (6.3-8.2) L 11/17/21 05:56 Albumin 2.2 g/dL (3.9-5) L 11/17/21 05:56 Albumin/Globulin Ratio 0.8 % 11/17/21 05:56 Triglycerides 59 mg/dL (2-149) 11/29/21 20:15 Cholesterol 74 mg/dL (50-199) 11/29/21 20:15 LDL Cholesterol Direct 25 mg/dL (50-130) L 11/29/21 20:15 HDL Cholesterol 41 mg/dL (40-59) 11/29/21 20:15 Cholesterol/HDL Ratio 1.80 % 11/29/21 20:15 Vitamin B12 1823 pg/mL (211-911) H 11/10/21 14:08 TSH 1.510 mlU/mL (0.270-4.200) 11/10/21 14:08 Urine Color Yellow (Yellow) 11/11/21 09:00 Urine Turbidity Slightly-cloudy (Clear) 11/11/21 09:00 Urine pH 5.0 (5.0-7.0) 11/11/21 09:00 Ur Specific [place] 1.009 (1.003-1.030) 11/11/21 09:00 Urine Protein <15 mg/dl mg/dL (Negative) 11/11/21 09:00 Urine Glucose (UA) Neg mg/dL (Negative) 11/11/21 09:00 Urine Ketones Neg mg/dL (Negative) 11/11/21 09:00 Urine Blood Mod (Negative) 11/11/21 09:00 Urine Nitrite Neg (Negative) 11/11/21 09:00 Urine Bilirubin Neg (Negative) 11/11/21 09:00 Urine Urobilinogen < 2.0 mg/dL (<2.0) 11/11/21 09:00 Ur Leukocyte Esterase Neg (Negative) 11/11/21 09:00 Urine WBC (Auto) < 1.0 /HPF (0.0-6.0) 11/11/21 09:00 Urine RBC (Auto) < 1.0 /HPF (0.0-6.0) 11/11/21 09:00 Fluid Type Pleural 01/06/22 13:40 Fluid Color Yellow 01/06/22 13:40 Fluid Appearance Hazy 01/06/22 13:40 Fluid WBC 273 /mm3 01/06/22 13:40 Fluid RBC 45 /mm3 01/06/22 13:40 Fluid Seg Neutrophils 47.0 % 01/06/22 13:40 Fluid Lymphocytes 22.0 % 01/06/22 13:40 Fluid Monocytes 10.0 % 01/06/22 13:40 Fluid Eosinophils 19.0 % 01/06/22 13:40 Fluid Basophils 2.0 % 01/06/22 13:40 Fluid Glucose 96 mg/dL (40-70) H 01/06/22 13:40 Fluid Total Protein < 3.0 (15.0-45.0) L 01/06/22 13:40 Fluid LDH 149 01/06/22 13:40 Vancomycin Trough 13.7 ug/mL (5.0-20.0) 01/08/22 06:33 Random Vancomycin 10.5 ug/mL (0-40.0) 01/04/22 05:00 Coronavirus (PCR) Negative (Negative) 11/10/21 08:30 Blood Type O POSITIVE 12/14/21 10:30 Antibody Screen Negative 12/14/21 10:30 Crossmatch See Detail 12/14/21 10:30 Gamble/IV: Voiding Method External Female Catheter Active Medications - Current Medications Current Medications: Generic Name Dose Route Start Last Admin Trade Name Freq PRN Reason Stop Dose Admin Acetaminophen 650 mg 12/14/21 04:12 01/11/22 03:35 Acetaminophen 325 Mg/10.15 Ml Oral Liqd Unit Dose FEEDTUBE 650 mg Q6H PRN Administration Non Cardiac Pain or Temp>100.5 Hydrocodone Bitart/Acetaminophen 1 each 11/21/21 10:00 01/11/22 08:41 Hydrocodone/Acetaminophen 10-325mg Tab FEEDTUBE 1 each TID YOSSI Administration Alprazolam 0.25 mg 12/30/21 09:00 01/11/22 03:36 Alprazolam 0.25 Mg Tab FEEDTUBE 0.25 mg Q8H PRN Administration Agitation Lipase/Protease/Amylase 1 each 11/08/21 11:09 Lipase 10,500/Protease 25,000/Amylase 43,750 (Units) Dr Lema FEEDTUBE PRN PRN For Clogged Feeding Tube Buspirone HCl 7.5 mg 12/30/21 10:00 01/11/22 09:38 Buspirone 5 Mg Tab FEEDTUBE 7.5 mg BID YOSSI Administration Dextrose 0 ml 11/10/21 10:52 12/30/21 00:48 Dextrose 10% *Hypoglycemia IV 50 ml PRN PRN Administration Hypoglycemia Docusate Sodium 100 mg 12/30/21 10:00 01/11/22 09:39 Docusate Sodium 100 Mg/10 Ml Oral Liqd FEEDTUBE Not Given BID YOSSI Furosemide 20 mg 01/08/22 10:00 01/11/22 09:38 Furosemide 20 Mg Tab PO 20 mg QDAY YOSSI Administration Gabapentin 100 mg 12/30/21 10:00 01/11/22 09:39 Gabapentin 100 Mg Cap FEEDTUBE 100 mg QDAY YOSSI Administration Hydrophilic Ointment 1 applic 11/06/21 04:02 Lip Therapy Vaseline TP Q2HR PRN Dry Lips Vancomycin HCl 1 gm in 250 mls @ 166.667 mls/hr 01/04/22 10:00 01/10/22 09:12 Vancomycin/Ns 1 Gm/250 Ml IV 01/26/22 11:29 166.667 mls/hr Q48H YOSSI Administration Lansoprazole 30 mg 11/24/21 22:00 01/11/22 09:38 Lansoprazole 30 Mg Solutab FEEDTUBE 30 mg BID YOSSI Administration Levothyroxine Sodium 125 mcg 12/31/21 06:00 01/11/22 06:08 Levothyroxine 125 Mcg Tab FEEDTUBE 125 mcg DAILY@0600 YOSSI Administration Melatonin 5 mg 12/05/21 22:00 01/10/22 22:19 Melatonin 5 Mg Tab PO 5 mg QHS YOSSI Administration Metoprolol Tartrate 6.25 mg 12/30/21 10:00 01/11/22 09:37 Metoprolol Tartrate 25 Mg Tab FEEDTUBE 6.25 mg BID YOSSI Administration Midodrine 5 mg 12/30/21 09:00 01/11/22 12:10 Midodrine 5 Mg Tab FEEDTUBE 5 mg TID@0800,1200,1600 YOSSI Administration Multi-Ingred Cream/Lotion/Oil/Oint 1 applic 11/06/21 04:02 Mineral Oil/Petrolatum, White Ophth Oint 3.5 Gm OU Q4HR PRN Dry Eye(s) Ondansetron HCl 4 mg 12/05/21 10:00 01/11/22 03:25 Ondansetron 4 Mg/2 Ml Inj IV 4 mg Q8H PRN Administration Nausea And Vomiting Polyethylene Glycol 17 gm 12/30/21 10:00 01/11/22 09:39 Polyethylene Glycol 3350 17 Gm Powder FEEDTUBE Not Given QDAY YOSSI Pravastatin Sodium 20 mg 12/30/21 22:00 01/10/22 22:20 Pravastatin 20 Mg Tab FEEDTUBE 20 mg QHS YOSSI Administration Quetiapine Fumarate 25 mg 12/30/21 10:00 01/11/22 09:38 Quetiapine 25 Mg Tab FEEDTUBE 25 mg QAM YOSSI Administration Quetiapine Fumarate 50 mg 12/30/21 22:00 01/10/22 22:19 Quetiapine 25 Mg Tab FEEDTUBE 50 mg QHS YOSSI Administration Senna 17.6 mg 12/29/21 11:00 01/11/22 09:39 Sennosides Oral Liqd 8.8 Mg/5 Ml Oral Liqd FEEDTUBE Not Given Q12HR YOSSI Simple Syrup 15 ml 11/08/21 11:09 Simple Syrup 15 Ml FEEDTUBE PRN PRN Hypoglycemia Simple Syrup 30 ml 11/08/21 11:09 Simple Syrup 15 Ml FEEDTUBE PRN PRN Hypoglycemia Sodium Bicarbonate 325 mg 11/08/21 11:09 01/09/22 20:25 Sodium Bicarbonate 325 Mg Tab FEEDTUBE 325 mg PRN PRN Administration For Clogged Feeding Tube Sodium Chloride 10 ml 11/04/21 10:00 01/11/22 09:39 Sodium Chloride 0.9% 10 Ml Flush Syringe IV 10 ml BID YOSSI Administration Sodium Chloride 10 ml 11/04/21 02:03 01/09/22 06:35 Sodium Chloride 0.9% 10 Ml Flush Syringe IV 10 ml PRN PRN Administration LINE FLUSH Spironolactone 25 mg 12/30/21 10:00 01/11/22 09:38 Spironolactone 25 Mg Tab FEEDTUBE 25 mg QDAY YOSSI Administration Sucralfate 1 gm 12/30/21 12:00 01/11/22 12:10 Sucralfate 1 Gm/10 Ml Oral Liqd FEEDTUBE 1 gm Q6HR YOSSI Administration Trazodone HCl 50 mg 12/04/21 22:00 01/10/22 22:19 Trazodone 50 Mg Tab PO 50 mg QHS YOSSI Administration Nutrition/Malnutrition Assess - Dietary Evaluation Nutrition/Malnutrition Findings: Nutrition Notes Start: 11/04/21 17:16 Freq: Status: Active Protocol: Document 01/10/22 18:16 ISABELL (Rec: 01/10/22 18:44 ISABELL [id number]) Nutrition Notes Initial or Follow up Reassessment Current Diagnosis Diabetes,Heart Failure, Respiratory Failure Other Pertinent Diagnosis Bacteremia, Pneumonia, Bilateral Pleural Effusion, Agitation/Anxiety. Current Diet TF-Vital AF 1.2 Tamir @ 45 ml/hr (since D 12/22). Labs/Tests 01/10: Na 133, Cl 92.6, CO2 31 , BUN 29, Crea 0.5, Glu 115. Pertinent Medications 01/10: Levothyroxine, others nutritionally unremarkable. Height 5 ft Weight 73 kg [place] Body Weight (kg) 45.45 BMI 31.4 Weight change and time frame 0.3 Kg body weight loss in 1 week reported. Weight Status Obese Subjective/Other Information RD consult for routine F/U on TF tolerance. TF continues as prescribed, well tolerated, according to RN notes. Pt continues on Mechanical Ventilation. Procedure on 01/07: US Toracentesis, TF off on 01/06 at 08:14, TF resumed after procedure. Well tolerated, according to RN notes. Pt still waiting for LTAC/SNF placement, unsuccessfully. Percent of energy/protein needs met: 102% Kcal; 89% AA. Burn Absent Trauma Absent GI Symptoms Other Food Allergy No Skin Integrity/Comment Surgical wounds. Current % PO Other Minimum of two criteria No #1 Nutrition Diagnosis Inadequate oral intake Diagnosis Progress(for reassessment Continues documentation) Is patient on ventilator? Yes Is Patient Ambulatory and/or Out of Bed No REE-([facility]-confined to bed) 1334.892 Kcal/Kg value to use for calculation 17 Approximate Energy Requirements Using 1241 kcal/Kg Calculation Used for Recommendations Kcal/kg Additional Notes Protein: 2 g/Kg IBW; 91 g/day. Fluids: 1 ml/Kcal, or as per MD. Nutrition Intervention Nutrition Support: Continue Vital AF 1.2 Tamir @ 45 ml/hr. Flush: 70 ml water Q 4 hr, or as per MD. Kcal 1,296 Protein (gm) 81 Carbohydrates (gm) 119 Fat (gm) 58 Fluid (mL) 876 Fiber (gm) 6 % RDI: 102% Kcal; 89% AA. Goal #1 Provide at least 75% of energy /protein needs through Enteral Feeding during LOS. Goal #2 Maintain body weight within +/ -3% of admission body weight during LOS. Follow-Up By: 01/16/22 Additional Comments Continue monitoring TF tolerance and BM. Mechanical Ventilation status.
--- NOTE | 2022-01-11 18:34 | Progress Note ---
Assessment and Plan 81-year-old female with known history of diabetes mellitus, hypertension and arthritis brought to the emergency room via EMS for shortness of breath which has been ongoing for the past 3 days prior to come to the emergency room. Patient has been having some cough and shortness of breath. According to patient's , patient has also been having a fever of about 102.2 F. Upon arrival of EMS patient was found to be tachypneic with O2 saturation of 76% on room air which later improved to 88% on nonrebreather. Work-up in the emergency room , chest x-ray shows bilateral interstitial pulmonary edema with bilateral pleural effusions.. Bibasilar opacities which favors atelectasis. Lab reveals leukocytosis of 29. Hemoglobin of 6.1. Patient received blood transfusion and also checked for COVID-19. Patient Ivy virus test reported negative. Patient intubated and placed on mechanical ventilation. Patient transfered to ICU. Patient undergone thoracentesis and chest tube placement. Patient still on mechanical ventilation. Patient transfered to [facility]. Patient sleeping. Patient is presently on pressure support ventilation, pressure support 20, FIO2 30%, PEEP 8 and O2 saturation running 100%. Continue spontaneous breathing trials and slowly wean from pressure support. Patient afebrile. No leukocytosis.Blood pressure 173/101, Pulse 75 , respirations 15 Patients recent HGB 7.7 01/06/22 Chest xray 12/11/21 reported Diffuse bilateral pulmonary opacities most significant in the left lung and right upper lung .No pneumothorax. Chest xray done 01/01/22 reported Worsening bilateral pulmonary opacities and effusions Chest xray 01/05/22 reported Diffuse bilateral pleuroparenchymal opacities, right greater than left, are similar to the prior exam. No pneumothorax. Patient undergone thoracentesis under Ultrasound guidance. Repeat chest xray post thoracentesis 01/06/22 reported Near complete evacuation of the right pleural effusion. No pneumothorax. Patient is on Vancomycin, Prevacid and Sucralfate. Recommend SCDs. Patient is on tube feeding. I spent critical care time of 33 minutes, reviewing the chart, examine the patient, review lab results, chest xray and talk to respiratory therapy and nursing staff and work out plan of treatment in this critically ill patient. - Patient Problems (1) Acute respiratory failure with hypoxia Current Visit: Yes Status: Acute Plan to address problem: Mechanical ventilation, pressure support 20, FIO2 30%, PEEP 8 S/P tracheostomy. (2) Bilateral pneumonia Current Visit: Yes Status: Acute Plan to address problem: Patient is on vancomycin. (3) Occult blood positive stool Current Visit: Yes Status: Acute Plan to address problem: Management as per gastroenterology. (4) Acute anemia Current Visit: Yes Status: Acute Plan to address problem: Patient received blood transfusion. (5) Suspected COVID-19 virus infection Current Visit: Yes Status: Acute Plan to address problem: Ivy virus PCR negative. (6) Pleural effusion Current Visit: Yes Status: Acute Plan to address problem: Patient unergone right thoracentesis under ultrasound guidance. Post thoracentesis chest xray reported Near complete evacuation of the right pleural effusion. No pneumothorax. Pleural fluid results pending. Subjective Date of service: 01/11/22 Principal diagnosis: Septic shock; AHRF; Anemia; Pneumonia; pleural effusion; HFrEF; Pulm HTN Interval history: 81-year-old female with known history of diabetes mellitus, hypertension and arthritis brought to the emergency room via EMS for shortness of breath which has been ongoing for the past 3 days prior to come to the emergency room. Patient has been having some cough and shortness of breath. According to patient's , patient has also been having a fever of about 102.2 F. Upon arrival of EMS patient was found to be tachypneic with O2 saturation of 76% on room air which later improved to 88% on nonrebreather. Work-up in the emergency room , chest x-ray shows bilateral interstitial pulmonary edema with bilateral pleural effusions.. Bibasilar opacities which favors atelectasis. Lab reveals leukocytosis of 29. Hemoglobin of 6.1. Patient received blood transfusion and also checked for COVID-19. Patient Ivy virus test reported negative. Patient intubated and placed on mechanical ventilation. Patient transfered to ICU. Patient undergone thoracentesis and chest tube placement. Patient still on mechanical ventilation. Patient transfered to [facility]. Patient sleeping. Patient is presently on pressure support ventilation, pressure support 20, FIO2 30%, PEEP 8 and O2 saturation running 100%. Continue spontaneous breathing trials and slowly wean from pressure support. Patient afebrile. No leukocytosis.Blood pressure 173/101, Pulse 75 , respirations 15 Patients recent HGB 7.7 01/06/22 Chest xray 12/11/21 reported Diffuse bilateral pulmonary opacities most significant in the left lung and right upper lung .No pneumothorax. Chest xray done 01/01/22 reported Worsening bilateral pulmonary opacities and effusions Chest xray 01/05/22 reported Diffuse bilateral pleuroparenchymal opacities, right greater than left, are similar to the prior exam. No pneumothorax. Patient undergone thoracentesis under Ultrasound guidance. Repeat chest xray post thoracentesis 01/06/22 reported Near complete evacuation of the right pleural effusion. No pneumothorax. Patient is on Vancomycin, Prevacid and Sucralfate. Recommend SCDs. Patient is on tube feeding. Objective Vital Signs - 12hr 01/11/22 01/11/22 01/11/22 07:00 07:31 08:00 Temperature 98.1 F Pulse Rate 67 71 72 Pulse Rate [ 67 From Monitor] Respiratory 14 14 18 Rate Blood Pressure 126/75 126/75 O2 Sat by Pulse 97 88 100 Oximetry O2 Sat by Pulse Oximetry [ Assessment] 01/11/22 01/11/22 01/11/22 08:01 08:31 08:40 Temperature Pulse Rate 69 75 87 Pulse Rate [ From Monitor] Respiratory 14 14 25 H Rate Blood Pressure 126/75 103/76 103/76 O2 Sat by Pulse 100 98 95 Oximetry O2 Sat by Pulse Oximetry [ Assessment] 01/11/22 01/11/22 01/11/22 08:50 09:01 09:31 Temperature Pulse Rate 116 H 109 H Pulse Rate [ From Monitor] Respiratory 30 H 21 Rate Blood Pressure 103/76 103/76 O2 Sat by Pulse 83 L 93 Oximetry O2 Sat by Pulse 95 Oximetry [ Assessment] 01/11/22 01/11/22 01/11/22 09:37 09:38 10:00 Temperature Pulse Rate 105 H 103 H 90 Pulse Rate [ From Monitor] Respiratory 28 H Rate Blood Pressure 103/76 103/67 178/71 O2 Sat by Pulse 97 Oximetry O2 Sat by Pulse Oximetry [ Assessment] 01/11/22 01/11/22 01/11/22 10:31 11:00 11:18 Temperature Pulse Rate 74 67 66 Pulse Rate [ From Monitor] Respiratory 26 H 26 H 22 Rate Blood Pressure 178/71 137/61 137/61 O2 Sat by Pulse 80 L 100 Oximetry O2 Sat by Pulse Oximetry [ Assessment] 03/01/11/22 01/11/22 11:31 12:00 12:31 Temperature 97.5 F L Pulse Rate 67 65 73 Pulse Rate [ 70 From Monitor] Respiratory 19 23 23 Rate Blood Pressure 137/61 146/68 146/68 O2 Sat by Pulse 100 96 100 Oximetry O2 Sat by Pulse Oximetry [ Assessment] 01/11/22 01/11/22 01/11/22 13:00 13:31 14:00 Temperature Pulse Rate 65 67 63 Pulse Rate [ From Monitor] Respiratory 11 L 12 13 Rate Blood Pressure 157/78 157/78 166/76 O2 Sat by Pulse 99 100 100 Oximetry O2 Sat by Pulse Oximetry [ Assessment] 01/11/22 01/11/22 01/11/22 14:31 15:00 15:31 Temperature Pulse Rate 67 67 66 Pulse Rate [ From Monitor] Respiratory 12 16 16 Rate Blood Pressure 166/76 159/68 159/68 O2 Sat by Pulse 100 100 Oximetry O2 Sat by Pulse Oximetry [ Assessment] 01/11/22 01/11/22 01/11/22 16:00 16:31 17:00 Temperature 97.5 F L Pulse Rate 64 65 65 Pulse Rate [ 68 From Monitor] Respiratory 11 L 12 12 Rate Blood Pressure 162/77 162/77 182/80 O2 Sat by Pulse 100 96 100 Oximetry O2 Sat by Pulse 97 Oximetry [ Assessment] 01/11/22 17:31 Temperature Pulse Rate 72 Pulse Rate [ From Monitor] Respiratory 15 Rate Blood Pressure 182/80 O2 Sat by Pulse 100 Oximetry O2 Sat by Pulse Oximetry [ Assessment] Constitutional: no acute distress, other (trach to MVS, frail elderly woman with mildly increased respiratory effort at rest) Eyes: non-icteric ENT: oropharynx moist, other (+ Midline tracheostomy with minimal secretions) Neck: supple, no lymphadenopathy, no JVD Effort: mildly labored Ascultation: Bilateral: diminished breath sounds, rhonchi, other (Right chest tube) Percussion: Bilateral: not dull, dull (bases) Cardiovascular: regular rate and rhythm, other (S1,S2) Gastrointestinal: normoactive bowel sounds, soft, non-tender, non-distended (protuberant) Integumentary: normal Extremities: no cyanosis, pink and warm, pulses normal, edema (upper etremities), anasarca Neurologic: non-focal exam (grossly), pupils equal and round, motor strength normal and Psychiatric: mood appropriate, affect normal CBC and BMP: 01/06/22 04:06 01/10/22 04:00 ABG, PT/INR, D-dimer: ABG ABG pH 7.479 pH Units (7.350-7.450) H 12/16/21 20:52 ABG pCO2 37.5 mm Hg 12/16/21 20:52 ABG pO2 79.3 mm Hg (80.0-90.0) L 12/16/21 20:52 ABG O2 Saturation 97.0 % (95.0-99.0) 12/16/21 20:52 PT/INR, D-dimer PT 16.9 Sec. (12.2-14.9) H 01/06/22 04:06 INR 1.23 (0.87-1.13) H 01/06/22 04:06 D-Dimer 2655.00 ng/mlDDU (0-234) H 11/11/21 04:28 Abnormal lab findings: Abnormal Labs 11/03/21 11/03/21 11/03/21 22:32 22:32 22:32 WBC 29.3 H RBC 2.93 L Hgb 6.1 L Hct 21.9 L MCV 75 L MCH 21 L MCHC 28 L RDW 19.7 H Plt Count Seg Neuts % (Manual) 97.0 H Lymphocytes % (Manual) 3.0 L Seg Neutrophils # Man 28.4 H Lymphocytes # (Manual) 0.9 L Monocytes # (Manual) PT 18.6 H INR 1.40 H D-Dimer ABG pH ABG pO2 ABG HCO3 ABG O2 Saturation ABG Base Excess ABG Hemoglobin Oxyhemoglobin Sodium Potassium Chloride Carbon Dioxide 20 L BUN 33 H Creatinine Glucose 119 H POC Glucose Lactic Acid Calcium 8.3 L Phosphorus Magnesium AST ALT Alkaline Phosphatase Lactate Dehydrogenase Troponin T 0.035 H C-Reactive Protein NT-Pro-B Natriuret Pep Total Protein Albumin LDL Cholesterol Direct 34 L Vitamin B12 Fluid Glucose Fluid Total Protein Vancomycin Trough Crossmatch 11/03/21 11/03/21 11/03/21 22:32 22:32 23:57 WBC RBC Hgb Hct MCV MCH MCHC RDW Plt Count Seg Neuts % (Manual) Lymphocytes % (Manual) Seg Neutrophils # Man Lymphocytes # (Manual) Monocytes # (Manual) PT INR D-Dimer ABG pH ABG pO2 ABG HCO3 ABG O2 Saturation ABG Base Excess ABG Hemoglobin Oxyhemoglobin Sodium Potassium Chloride Carbon Dioxide BUN Creatinine Glucose POC Glucose Lactic Acid 3.70 H* Calcium Phosphorus Magnesium AST ALT Alkaline Phosphatase 139 H Lactate Dehydrogenase Troponin T C-Reactive Protein NT-Pro-B Natriuret Pep 7895 H Total Protein Albumin 3.5 L LDL Cholesterol Direct Vitamin B12 Fluid Glucose Fluid Total Protein Vancomycin Trough Crossmatch See Detail 11/04/21 11/04/21 11/05/21 00:59 13:58 00:51 WBC 27.9 H RBC 3.28 L Hgb 7.3 L Hct 25.5 L MCV 78 L MCH 22 L MCHC 29 L RDW 19.1 H Plt Count Seg Neuts % (Manual) 96.0 H Lymphocytes % (Manual) 2.0 L Seg Neutrophils # Man 26.8 H Lymphocytes # (Manual) 0.6 L Monocytes # (Manual) PT INR D-Dimer ABG pH ABG pO2 ABG HCO3 ABG O2 Saturation ABG Base Excess ABG Hemoglobin Oxyhemoglobin Sodium Potassium Chloride Carbon Dioxide BUN Creatinine Glucose POC Glucose Lactic Acid Calcium Phosphorus Magnesium AST ALT Alkaline Phosphatase Lactate Dehydrogenase Troponin T 0.051 H D 0.032 H D C-Reactive Protein NT-Pro-B Natriuret Pep Total Protein Albumin LDL Cholesterol Direct Vitamin B12 Fluid Glucose Fluid Total Protein Vancomycin Trough Crossmatch 11/05/21 11/05/21 11/05/21 06:11 06:11 06:11 WBC 31.8 H RBC 3.57 L Hgb 8.0 L Hct 27.7 L MCV 78 L MCH 22 L MCHC 29 L RDW 19.2 H Plt Count Seg Neuts % (Manual) 91.0 H Lymphocytes % (Manual) 4.5 L Seg Neutrophils # Man 28.9 H Lymphocytes # (Manual) Monocytes # (Manual) 1.1 H PT INR D-Dimer 1494.53 H ABG pH ABG pO2 ABG HCO3 ABG O2 Saturation ABG Base Excess ABG Hemoglobin Oxyhemoglobin Sodium Potassium Chloride Carbon Dioxide 19 L BUN 42 H Creatinine Glucose 115 H POC Glucose Lactic Acid Calcium Phosphorus Magnesium AST 43 H ALT Alkaline Phosphatase Lactate Dehydrogenase 187 H Troponin T C-Reactive Protein 22.20 H NT-Pro-B Natriuret Pep Total Protein 6.0 L Albumin 3.2 L LDL Cholesterol Direct Vitamin B12 Fluid Glucose Fluid Total Protein Vancomycin Trough Crossmatch 11/05/21 11/05/21 11/06/21 06:11 12:15 00:30 WBC RBC Hgb Hct MCV MCH MCHC RDW Plt Count Seg Neuts % (Manual) Lymphocytes % (Manual) Seg Neutrophils # Man Lymphocytes # (Manual) Monocytes # (Manual) PT INR D-Dimer ABG pH ABG pO2 ABG HCO3 ABG O2 Saturation ABG Base Excess ABG Hemoglobin Oxyhemoglobin Sodium Potassium Chloride Carbon Dioxide BUN Creatinine Glucose POC Glucose 113 H 69 L Lactic Acid Calcium Phosphorus Magnesium AST ALT Alkaline Phosphatase Lactate Dehydrogenase Troponin T 0.033 H C-Reactive Protein NT-Pro-B Natriuret Pep Total Protein Albumin LDL Cholesterol Direct Vitamin B12 Fluid Glucose Fluid Total Protein Vancomycin Trough Crossmatch 11/06/21 11/06/21 11/06/21 05:50 15:50 15:50 WBC 25.5 H RBC 3.62 L Hgb 8.0 L Hct 27.5 L MCV 76 L MCH 22 L MCHC 29 L RDW 19.6 H Plt Count Seg Neuts % (Manual) 92.0 H Lymphocytes % (Manual) 5.0 L Seg Neutrophils # Man 23.5 H Lymphocytes # (Manual) Monocytes # (Manual) PT INR D-Dimer ABG pH 7.305 L ABG pO2 ABG HCO3 15.8 L ABG O2 Saturation ABG Base Excess -9.6 L ABG Hemoglobin 8.6 L Oxyhemoglobin 94.6 L Sodium Potassium Chloride 113.9 H Carbon Dioxide 17 L BUN 56 H Creatinine Glucose 114 H POC Glucose Lactic Acid Calcium 7.9 L Phosphorus Magnesium AST 1410 H ALT 934 H Alkaline Phosphatase 142 H Lactate Dehydrogenase Troponin T C-Reactive Protein NT-Pro-B Natriuret Pep Total Protein 5.0 L Albumin 2.6 L LDL Cholesterol Direct Vitamin B12 Fluid Glucose Fluid Total Protein Vancomycin Trough Crossmatch 11/07/21 11/07/21 11/07/21 03:30 04:50 08:07 WBC RBC Hgb Hct MCV MCH MCHC RDW Plt Count Seg Neuts % (Manual) Lymphocytes % (Manual) Seg Neutrophils # Man Lymphocytes # (Manual) Monocytes # (Manual) PT INR D-Dimer ABG pH ABG pO2 296.9 H ABG HCO3 18.1 L ABG O2 Saturation 99.5 H ABG Base Excess -5.9 L ABG Hemoglobin 7.6 L Oxyhemoglobin Sodium Potassium Chloride Carbon Dioxide BUN Creatinine Glucose POC Glucose 106 H 108 H Lactic Acid Calcium Phosphorus Magnesium AST ALT Alkaline Phosphatase Lactate Dehydrogenase Troponin T C-Reactive Protein NT-Pro-B Natriuret Pep Total Protein Albumin LDL Cholesterol Direct Vitamin B12 Fluid Glucose Fluid Total Protein Vancomycin Trough Crossmatch 11/08/21 11/08/21 11/08/21 03:10 18:05 23:43 WBC RBC Hgb Hct MCV MCH MCHC RDW Plt Count Seg Neuts % (Manual) Lymphocytes % (Manual) Seg Neutrophils # Man Lymphocytes # (Manual) Monocytes # (Manual) PT INR D-Dimer ABG pH ABG pO2 127.4 H ABG HCO3 ABG O2 Saturation ABG Base Excess -3.4 L ABG Hemoglobin 7.4 L Oxyhemoglobin Sodium Potassium Chloride Carbon Dioxide BUN Creatinine Glucose POC Glucose 113 H 141 H Lactic Acid Calcium Phosphorus Magnesium AST ALT Alkaline Phosphatase Lactate Dehydrogenase Troponin T C-Reactive Protein NT-Pro-B Natriuret Pep Total Protein Albumin LDL Cholesterol Direct Vitamin B12 Fluid Glucose Fluid Total Protein Vancomycin Trough Crossmatch 11/08/21 11/08/21 11/09/21 Unknown Unknown 02:00 WBC 14.5 H RBC 3.35 L Hgb 7.5 L 8.1 L Hct 25.4 L 27.6 L MCV 76 L 76 L MCH 23 L 22 L MCHC RDW 19.9 H 19.9 H Plt Count Seg Neuts % (Manual) Lymphocytes % (Manual) Seg Neutrophils # Man Lymphocytes # (Manual) Monocytes # (Manual) PT INR D-Dimer ABG pH ABG pO2 ABG HCO3 ABG O2 Saturation ABG Base Excess ABG Hemoglobin Oxyhemoglobin Sodium 154 H D Potassium 3.3 L Chloride 120.7 H Carbon Dioxide 20 L BUN 38 H Creatinine Glucose POC Glucose Lactic Acid Calcium 8.3 L Phosphorus Magnesium AST ALT Alkaline Phosphatase Lactate Dehydrogenase Troponin T C-Reactive Protein NT-Pro-B Natriuret Pep Total Protein Albumin LDL Cholesterol Direct Vitamin B12 Fluid Glucose Fluid Total Protein Vancomycin Trough Crossmatch 11/09/21 11/09/21 11/09/21 02:00 02:31 05:12 WBC RBC Hgb Hct MCV MCH MCHC RDW Plt Count Seg Neuts % (Manual) Lymphocytes % (Manual) Seg Neutrophils # Man Lymphocytes # (Manual) Monocytes # (Manual) PT INR D-Dimer ABG pH 7.479 H ABG pO2 121.3 H ABG HCO3 ABG O2 Saturation ABG Base Excess ABG Hemoglobin 7.3 L Oxyhemoglobin Sodium Potassium Chloride 112.5 H Carbon Dioxide BUN 33 H Creatinine Glucose 161 H POC Glucose 135 H Lactic Acid Calcium Phosphorus Magnesium AST 251 H ALT 481 H Alkaline Phosphatase Lactate Dehydrogenase Troponin T C-Reactive Protein NT-Pro-B Natriuret Pep Total Protein 5.0 L Albumin 2.8 L LDL Cholesterol Direct Vitamin B12 Fluid Glucose Fluid Total Protein Vancomycin Trough Crossmatch 11/09/21 11/09/21 11/09/21 11:33 16:32 23:28 WBC RBC Hgb Hct MCV MCH MCHC RDW Plt Count Seg Neuts % (Manual) Lymphocytes % (Manual) Seg Neutrophils # Man Lymphocytes # (Manual) Monocytes # (Manual) PT INR D-Dimer ABG pH ABG pO2 ABG HCO3 ABG O2 Saturation ABG Base Excess ABG Hemoglobin Oxyhemoglobin Sodium Potassium Chloride Carbon Dioxide BUN Creatinine Glucose POC Glucose 132 H 133 H 143 H Lactic Acid Calcium Phosphorus Magnesium AST ALT Alkaline Phosphatase Lactate Dehydrogenase Troponin T C-Reactive Protein NT-Pro-B Natriuret Pep Total Protein Albumin LDL Cholesterol Direct Vitamin B12 Fluid Glucose Fluid Total Protein Vancomycin Trough Crossmatch 11/10/21 11/10/21 11/10/21 04:00 04:00 05:35 WBC 16.0 H RBC 3.61 L Hgb 8.0 L Hct 27.1 L MCV 75 L MCH 22 L MCHC RDW 20.4 H Plt Count Seg Neuts % (Manual) Lymphocytes % (Manual) Seg Neutrophils # Man Lymphocytes # (Manual) Monocytes # (Manual) PT INR D-Dimer ABG pH ABG pO2 ABG HCO3 ABG O2 Saturation ABG Base Excess ABG Hemoglobin Oxyhemoglobin Sodium 149 H Potassium Chloride 114.1 H Carbon Dioxide BUN 31 H Creatinine Glucose 148 H POC Glucose 132 H Lactic Acid Calcium 8.2 L Phosphorus Magnesium AST ALT Alkaline Phosphatase Lactate Dehydrogenase Troponin T C-Reactive Protein NT-Pro-B Natriuret Pep Total Protein Albumin LDL Cholesterol Direct Vitamin B12 Fluid Glucose Fluid Total Protein Vancomycin Trough Crossmatch 11/10/21 11/10/21 11/10/21 11:31 14:08 15:35 WBC RBC Hgb Hct MCV MCH MCHC RDW Plt Count Seg Neuts % (Manual) Lymphocytes % (Manual) Seg Neutrophils # Man Lymphocytes # (Manual) Monocytes # (Manual) PT INR D-Dimer ABG pH ABG pO2 126.6 H ABG HCO3 ABG O2 Saturation ABG Base Excess ABG Hemoglobin 7.4 L Oxyhemoglobin Sodium Potassium Chloride Carbon Dioxide BUN Creatinine Glucose POC Glucose 147 H Lactic Acid Calcium Phosphorus Magnesium AST ALT Alkaline Phosphatase Lactate Dehydrogenase Troponin T C-Reactive Protein NT-Pro-B Natriuret Pep Total Protein Albumin LDL Cholesterol Direct Vitamin B12 1823 H Fluid Glucose Fluid Total Protein Vancomycin Trough Crossmatch 11/10/21 11/11/21 11/11/21 17:53 00:55 04:28 WBC RBC Hgb Hct MCV MCH MCHC RDW Plt Count Seg Neuts % (Manual) Lymphocytes % (Manual) Seg Neutrophils # Man Lymphocytes # (Manual) Monocytes # (Manual) PT INR D-Dimer ABG pH ABG pO2 ABG HCO3 ABG O2 Saturation ABG Base Excess ABG Hemoglobin Oxyhemoglobin Sodium 149 H Potassium Chloride 112.2 H Carbon Dioxide BUN 34 H Creatinine Glucose 148 H POC Glucose 140 H 145 H Lactic Acid Calcium 7.9 L Phosphorus Magnesium AST 53 H ALT 203 H Alkaline Phosphatase Lactate Dehydrogenase Troponin T C-Reactive Protein NT-Pro-B Natriuret Pep Total Protein 4.9 L Albumin 2.6 L LDL Cholesterol Direct Vitamin B12 Fluid Glucose Fluid Total Protein Vancomycin Trough Crossmatch 11/11/21 11/11/21 11/11/21 04:28 04:28 05:28 WBC 20.9 H RBC 3.47 L Hgb 7.5 L Hct 26.0 L MCV 75 L MCH 22 L MCHC 29 L RDW 21.6 H Plt Count 132 L Seg Neuts % (Manual) Lymphocytes % (Manual) Seg Neutrophils # Man Lymphocytes # (Manual) Monocytes # (Manual) PT INR D-Dimer 2655.00 H ABG pH ABG pO2 ABG HCO3 ABG O2 Saturation ABG Base Excess ABG Hemoglobin Oxyhemoglobin Sodium Potassium Chloride Carbon Dioxide BUN Creatinine Glucose POC Glucose 154 H Lactic Acid Calcium Phosphorus Magnesium AST ALT Alkaline Phosphatase Lactate Dehydrogenase Troponin T C-Reactive Protein NT-Pro-B Natriuret Pep Total Protein Albumin LDL Cholesterol Direct Vitamin B12 Fluid Glucose Fluid Total Protein Vancomycin Trough Crossmatch 11/11/21 11/11/21 11/12/21 12:38 18:13 00:14 WBC RBC Hgb Hct MCV MCH MCHC RDW Plt Count Seg Neuts % (Manual) Lymphocytes % (Manual) Seg Neutrophils # Man Lymphocytes # (Manual) Monocytes # (Manual) PT INR D-Dimer ABG pH ABG pO2 ABG HCO3 ABG O2 Saturation ABG Base Excess ABG Hemoglobin Oxyhemoglobin Sodium Potassium Chloride Carbon Dioxide BUN Creatinine Glucose POC Glucose 137 H 108 H 137 H Lactic Acid Calcium Phosphorus Magnesium AST ALT Alkaline Phosphatase Lactate Dehydrogenase Troponin T C-Reactive Protein NT-Pro-B Natriuret Pep Total Protein Albumin LDL Cholesterol Direct Vitamin B12 Fluid Glucose Fluid Total Protein Vancomycin Trough Crossmatch 11/12/21 11/12/21 11/12/21 05:40 06:24 11:12 WBC RBC Hgb Hct MCV MCH MCHC RDW Plt Count Seg Neuts % (Manual) Lymphocytes % (Manual) Seg Neutrophils # Man Lymphocytes # (Manual) Monocytes # (Manual) PT INR D-Dimer ABG pH 7.586 H ABG pO2 150.6 H ABG HCO3 27.2 H ABG O2 Saturation 99.1 H ABG Base Excess 5.2 H ABG Hemoglobin 7.5 L Oxyhemoglobin Sodium Potassium Chloride Carbon Dioxide BUN Creatinine Glucose POC Glucose 132 H 140 H Lactic Acid Calcium Phosphorus Magnesium AST ALT Alkaline Phosphatase Lactate Dehydrogenase Troponin T C-Reactive Protein NT-Pro-B Natriuret Pep Total Protein Albumin LDL Cholesterol Direct Vitamin B12 Fluid Glucose Fluid Total Protein Vancomycin Trough Crossmatch 11/12/21 11/12/21 11/12/21 14:50 14:50 17:13 WBC 19.8 H RBC 3.27 L Hgb 7.1 L Hct 24.5 L MCV 75 L MCH 22 L MCHC 29 L RDW 22.3 H Plt Count Seg Neuts % (Manual) Lymphocytes % (Manual) Seg Neutrophils # Man Lymphocytes # (Manual) Monocytes # (Manual) PT INR D-Dimer ABG pH ABG pO2 ABG HCO3 ABG O2 Saturation ABG Base Excess ABG Hemoglobin Oxyhemoglobin Sodium 150 H Potassium 3.3 L Chloride 112.0 H Carbon Dioxide BUN 40 H Creatinine Glucose 151 H POC Glucose 121 H Lactic Acid Calcium 7.4 L Phosphorus 1.70 L Magnesium 1.40 L AST ALT Alkaline Phosphatase Lactate Dehydrogenase Troponin T C-Reactive Protein NT-Pro-B Natriuret Pep Total Protein Albumin LDL Cholesterol Direct Vitamin B12 Fluid Glucose Fluid Total Protein Vancomycin Trough Crossmatch 11/12/21 11/13/21 11/13/21 23:19 05:34 06:30 WBC RBC Hgb Hct MCV MCH MCHC RDW Plt Count Seg Neuts % (Manual) Lymphocytes % (Manual) Seg Neutrophils # Man Lymphocytes # (Manual) Monocytes # (Manual) PT INR D-Dimer ABG pH ABG pO2 ABG HCO3 ABG O2 Saturation ABG Base Excess ABG Hemoglobin Oxyhemoglobin Sodium 149 H Potassium Chloride 60.0 L Carbon Dioxide BUN 40 H Creatinine Glucose 146 H POC Glucose 113 H 132 H Lactic Acid Calcium 7.3 L Phosphorus Magnesium 2.40 H AST ALT 72 H Alkaline Phosphatase Lactate Dehydrogenase Troponin T C-Reactive Protein NT-Pro-B Natriuret Pep Total Protein 5.2 L Albumin 2.2 L LDL Cholesterol Direct Vitamin B12 Fluid Glucose Fluid Total Protein Vancomycin Trough Crossmatch 11/13/21 11/13/21 11/13/21 06:30 08:30 11:19 WBC 21.2 H RBC 3.12 L Hgb 6.8 L Hct 23.2 L MCV 74 L MCH 22 L MCHC 29 L RDW 22.2 H Plt Count 135 L Seg Neuts % (Manual) Lymphocytes % (Manual) Seg Neutrophils # Man Lymphocytes # (Manual) Monocytes # (Manual) PT INR D-Dimer ABG pH ABG pO2 ABG HCO3 ABG O2 Saturation ABG Base Excess ABG Hemoglobin Oxyhemoglobin Sodium Potassium Chloride Carbon Dioxide BUN Creatinine Glucose POC Glucose 136 H Lactic Acid Calcium Phosphorus Magnesium AST ALT Alkaline Phosphatase Lactate Dehydrogenase Troponin T C-Reactive Protein NT-Pro-B Natriuret Pep Total Protein Albumin LDL Cholesterol Direct Vitamin B12 Fluid Glucose Fluid Total Protein Vancomycin Trough Crossmatch See Detail 11/13/21 11/14/21 11/14/21 18:21 00:01 04:46 WBC 20.0 H RBC 3.41 L Hgb 7.9 L Hct 26.8 L MCV MCH 23 L MCHC 29 L RDW 24.0 H Plt Count Seg Neuts % (Manual) Lymphocytes % (Manual) Seg Neutrophils # Man Lymphocytes # (Manual) Monocytes # (Manual) PT INR D-Dimer ABG pH ABG pO2 ABG HCO3 ABG O2 Saturation ABG Base Excess ABG Hemoglobin Oxyhemoglobin Sodium Potassium Chloride Carbon Dioxide BUN Creatinine Glucose POC Glucose 149 H 141 H Lactic Acid Calcium Phosphorus Magnesium AST ALT Alkaline Phosphatase Lactate Dehydrogenase Troponin T C-Reactive Protein NT-Pro-B Natriuret Pep Total Protein Albumin LDL Cholesterol Direct Vitamin B12 Fluid Glucose Fluid Total Protein Vancomycin Trough Crossmatch 11/14/21 11/14/21 11/14/21 04:46 05:10 11:10 WBC RBC Hgb Hct MCV MCH MCHC RDW Plt Count Seg Neuts % (Manual) Lymphocytes % (Manual) Seg Neutrophils # Man Lymphocytes # (Manual) Monocytes # (Manual) PT INR D-Dimer ABG pH ABG pO2 ABG HCO3 ABG O2 Saturation ABG Base Excess ABG Hemoglobin Oxyhemoglobin Sodium 148 H Potassium Chloride 113.1 H Carbon Dioxide BUN 43 H Creatinine Glucose 140 H POC Glucose 132 H 133 H Lactic Acid Calcium 7.5 L Phosphorus Magnesium AST ALT Alkaline Phosphatase Lactate Dehydrogenase Troponin T C-Reactive Protein NT-Pro-B Natriuret Pep Total Protein Albumin LDL Cholesterol Direct Vitamin B12 Fluid Glucose Fluid Total Protein Vancomycin Trough Crossmatch 11/14/21 11/14/21 11/14/21 16:14 17:48 23:23 WBC RBC Hgb Hct MCV MCH MCHC RDW Plt Count Seg Neuts % (Manual) Lymphocytes % (Manual) Seg Neutrophils # Man Lymphocytes # (Manual) Monocytes # (Manual) PT INR D-Dimer ABG pH ABG pO2 ABG HCO3 28.0 H ABG O2 Saturation ABG Base Excess 3.1 H ABG Hemoglobin 5.8 L Oxyhemoglobin 94.8 L Sodium Potassium Chloride Carbon Dioxide BUN Creatinine Glucose POC Glucose 130 H 136 H Lactic Acid Calcium Phosphorus Magnesium AST ALT Alkaline Phosphatase Lactate Dehydrogenase Troponin T C-Reactive Protein NT-Pro-B Natriuret Pep Total Protein Albumin LDL Cholesterol Direct Vitamin B12 Fluid Glucose Fluid Total Protein Vancomycin Trough Crossmatch 11/15/21 11/15/21 11/15/21 05:20 05:50 05:50 WBC 19.9 H RBC 3.50 L Hgb 8.2 L Hct 27.9 L MCV MCH 23 L MCHC 29 L RDW 24.9 H Plt Count Seg Neuts % (Manual) Lymphocytes % (Manual) Seg Neutrophils # Man Lymphocytes # (Manual) Monocytes # (Manual) PT INR D-Dimer ABG pH ABG pO2 ABG HCO3 ABG O2 Saturation ABG Base Excess ABG Hemoglobin Oxyhemoglobin Sodium 149 H Potassium Chloride 112.0 H Carbon Dioxide BUN 48 H Creatinine Glucose 152 H POC Glucose 137 H Lactic Acid Calcium 7.9 L Phosphorus Magnesium AST ALT Alkaline Phosphatase Lactate Dehydrogenase Troponin T C-Reactive Protein NT-Pro-B Natriuret Pep Total Protein Albumin LDL Cholesterol Direct Vitamin B12 Fluid Glucose Fluid Total Protein Vancomycin Trough Crossmatch 11/15/21 11/15/21 11/15/21 12:12 17:07 23:24 WBC RBC Hgb Hct MCV MCH MCHC RDW Plt Count Seg Neuts % (Manual) Lymphocytes % (Manual) Seg Neutrophils # Man Lymphocytes # (Manual) Monocytes # (Manual) PT INR D-Dimer ABG pH ABG pO2 ABG HCO3 ABG O2 Saturation ABG Base Excess ABG Hemoglobin Oxyhemoglobin Sodium Potassium Chloride Carbon Dioxide BUN Creatinine Glucose POC Glucose 114 H 135 H 123 H Lactic Acid Calcium Phosphorus Magnesium AST ALT Alkaline Phosphatase Lactate Dehydrogenase Troponin T C-Reactive Protein NT-Pro-B Natriuret Pep Total Protein Albumin LDL Cholesterol Direct Vitamin B12 Fluid Glucose Fluid Total Protein Vancomycin Trough Crossmatch 11/16/21 11/16/21 11/16/21 05:21 10:00 10:00 WBC 21.7 H RBC 2.57 L Hgb 6.0 L Hct 20.2 L D MCV MCH 24 L MCHC RDW 26.3 H Plt Count Seg Neuts % (Manual) Lymphocytes % (Manual) Seg Neutrophils # Man Lymphocytes # (Manual) Monocytes # (Manual) PT INR D-Dimer ABG pH ABG pO2 ABG HCO3 ABG O2 Saturation ABG Base Excess ABG Hemoglobin Oxyhemoglobin Sodium 153 H Potassium Chloride 114.9 H Carbon Dioxide BUN 74 H Creatinine Glucose 155 H POC Glucose 127 H Lactic Acid Calcium 8.1 L Phosphorus Magnesium AST ALT Alkaline Phosphatase Lactate Dehydrogenase Troponin T C-Reactive Protein NT-Pro-B Natriuret Pep Total Protein Albumin LDL Cholesterol Direct Vitamin B12 Fluid Glucose Fluid Total Protein Vancomycin Trough Crossmatch 11/16/21 11/16/21 11/16/21 11:34 14:00 15:25 WBC 17.2 H RBC 2.08 L Hgb 4.7 L* Hct 16.2 L* MCV 78 L MCH 23 L MCHC 29 L RDW 26.0 H Plt Count Seg Neuts % (Manual) 87.0 H Lymphocytes % (Manual) 8.0 L Seg Neutrophils # Man 15.0 H Lymphocytes # (Manual) Monocytes # (Manual) 0.9 H PT INR D-Dimer ABG pH ABG pO2 ABG HCO3 ABG O2 Saturation ABG Base Excess ABG Hemoglobin Oxyhemoglobin Sodium Potassium Chloride Carbon Dioxide BUN Creatinine Glucose POC Glucose 131 H Lactic Acid Calcium Phosphorus Magnesium AST ALT Alkaline Phosphatase Lactate Dehydrogenase Troponin T C-Reactive Protein NT-Pro-B Natriuret Pep Total Protein Albumin LDL Cholesterol Direct Vitamin B12 Fluid Glucose Fluid Total Protein Vancomycin Trough Crossmatch See Detail 11/16/21 11/16/21 11/16/21 15:25 17:21 22:43 WBC RBC Hgb 8.6 L D Hct 27.7 L D MCV MCH MCHC RDW Plt Count Seg Neuts % (Manual) Lymphocytes % (Manual) Seg Neutrophils # Man Lymphocytes # (Manual) Monocytes # (Manual) PT INR D-Dimer ABG pH ABG pO2 ABG HCO3 ABG O2 Saturation ABG Base Excess ABG Hemoglobin Oxyhemoglobin Sodium 148 H Potassium Chloride 113.2 H Carbon Dioxide BUN 84 H Creatinine Glucose 164 H POC Glucose 124 H Lactic Acid Calcium 7.6 L Phosphorus Magnesium AST ALT Alkaline Phosphatase Lactate Dehydrogenase Troponin T C-Reactive Protein NT-Pro-B Natriuret Pep Total Protein Albumin LDL Cholesterol Direct Vitamin B12 Fluid Glucose Fluid Total Protein Vancomycin Trough Crossmatch 11/16/21 11/17/21 11/17/21 23:07 05:33 05:56 WBC 25.1 H RBC 3.47 L Hgb 8.7 L Hct 28.5 L MCV MCH 25 L MCHC RDW 22.3 H Plt Count Seg Neuts % (Manual) Lymphocytes % (Manual) Seg Neutrophils # Man Lymphocytes # (Manual) Monocytes # (Manual) PT INR D-Dimer ABG pH ABG pO2 ABG HCO3 ABG O2 Saturation ABG Base Excess ABG Hemoglobin Oxyhemoglobin Sodium Potassium Chloride Carbon Dioxide BUN Creatinine Glucose POC Glucose 128 H 133 H Lactic Acid Calcium Phosphorus Magnesium AST ALT Alkaline Phosphatase Lactate Dehydrogenase Troponin T C-Reactive Protein NT-Pro-B Natriuret Pep Total Protein Albumin LDL Cholesterol Direct Vitamin B12 Fluid Glucose Fluid Total Protein Vancomycin Trough Crossmatch 11/17/21 11/17/21 11/17/21 05:56 11:00 11:55 WBC RBC Hgb 8.3 L Hct 26.9 L MCV MCH MCHC RDW Plt Count Seg Neuts % (Manual) Lymphocytes % (Manual) Seg Neutrophils # Man Lymphocytes # (Manual) Monocytes # (Manual) PT INR D-Dimer ABG pH ABG pO2 ABG HCO3 ABG O2 Saturation ABG Base Excess ABG Hemoglobin Oxyhemoglobin Sodium 151 H Potassium Chloride 113.6 H Carbon Dioxide BUN 85 H Creatinine Glucose 132 H POC Glucose 121 H Lactic Acid Calcium 7.8 L Phosphorus Magnesium AST ALT Alkaline Phosphatase Lactate Dehydrogenase Troponin T C-Reactive Protein NT-Pro-B Natriuret Pep Total Protein 5.1 L Albumin 2.2 L LDL Cholesterol Direct Vitamin B12 Fluid Glucose Fluid Total Protein Vancomycin Trough Crossmatch 11/17/21 11/17/21 11/18/21 18:04 18:55 00:26 WBC RBC Hgb 7.5 L 7.1 L Hct 24.8 L 23.6 L MCV MCH MCHC RDW Plt Count Seg Neuts % (Manual) Lymphocytes % (Manual) Seg Neutrophils # Man Lymphocytes # (Manual) Monocytes # (Manual) PT INR D-Dimer ABG pH ABG pO2 ABG HCO3 ABG O2 Saturation ABG Base Excess ABG Hemoglobin Oxyhemoglobin Sodium Potassium Chloride Carbon Dioxide BUN Creatinine Glucose POC Glucose 144 H Lactic Acid Calcium Phosphorus Magnesium AST ALT Alkaline Phosphatase Lactate Dehydrogenase Troponin T C-Reactive Protein NT-Pro-B Natriuret Pep Total Protein Albumin LDL Cholesterol Direct Vitamin B12 Fluid Glucose Fluid Total Protein Vancomycin Trough Crossmatch 11/18/21 11/18/21 11/18/21 00:43 05:10 05:10 WBC 12.5 H RBC 2.39 L Hgb 6.1 L Hct 20.2 L MCV MCH 25 L MCHC RDW 23.2 H Plt Count Seg Neuts % (Manual) Lymphocytes % (Manual) Seg Neutrophils # Man Lymphocytes # (Manual) Monocytes # (Manual) PT INR D-Dimer ABG pH ABG pO2 ABG HCO3 ABG O2 Saturation ABG Base Excess ABG Hemoglobin Oxyhemoglobin Sodium 131 L D Potassium 2.9 L* D Chloride 97.8 L Carbon Dioxide BUN 58 H Creatinine Glucose 665 H* POC Glucose 139 H Lactic Acid Calcium 7.0 L Phosphorus 2.20 L D Magnesium 1.50 L AST ALT Alkaline Phosphatase Lactate Dehydrogenase Troponin T C-Reactive Protein NT-Pro-B Natriuret Pep Total Protein Albumin LDL Cholesterol Direct Vitamin B12 Fluid Glucose Fluid Total Protein Vancomycin Trough Crossmatch 11/18/21 11/18/21 11/18/21 05:23 07:10 10:45 WBC RBC Hgb Hct MCV MCH MCHC RDW Plt Count Seg Neuts % (Manual) Lymphocytes % (Manual) Seg Neutrophils # Man Lymphocytes # (Manual) Monocytes # (Manual) PT INR D-Dimer ABG pH ABG pO2 ABG HCO3 ABG O2 Saturation ABG Base Excess ABG Hemoglobin Oxyhemoglobin Sodium 148 H D Potassium 3.1 L Chloride 111.9 H Carbon Dioxide BUN 63 H Creatinine Glucose 141 H POC Glucose 124 H Lactic Acid Calcium 8.1 L D Phosphorus Magnesium AST ALT Alkaline Phosphatase Lactate Dehydrogenase Troponin T C-Reactive Protein NT-Pro-B Natriuret Pep Total Protein Albumin LDL Cholesterol Direct Vitamin B12 Fluid Glucose Fluid Total Protein Vancomycin Trough Crossmatch See Detail 11/18/21 11/19/21 11/19/21 11:57 00:19 04:55 WBC RBC 3.35 L Hgb 9.0 L 8.9 L Hct 28.3 L D 28.1 L MCV MCH 27 L MCHC RDW 20.3 H Plt Count Seg Neuts % (Manual) Lymphocytes % (Manual) Seg Neutrophils # Man Lymphocytes # (Manual) Monocytes # (Manual) PT INR D-Dimer ABG pH ABG pO2 ABG HCO3 ABG O2 Saturation ABG Base Excess ABG Hemoglobin Oxyhemoglobin Sodium Potassium Chloride Carbon Dioxide BUN Creatinine Glucose POC Glucose 119 H Lactic Acid Calcium Phosphorus Magnesium AST ALT Alkaline Phosphatase Lactate Dehydrogenase Troponin T C-Reactive Protein NT-Pro-B Natriuret Pep Total Protein Albumin LDL Cholesterol Direct Vitamin B12 Fluid Glucose Fluid Total Protein Vancomycin Trough Crossmatch 11/19/21 11/19/21 11/20/21 04:55 05:42 00:55 WBC RBC Hgb 9.0 L Hct 28.6 L MCV MCH MCHC RDW Plt Count Seg Neuts % (Manual) Lymphocytes % (Manual) Seg Neutrophils # Man Lymphocytes # (Manual) Monocytes # (Manual) PT INR D-Dimer ABG pH ABG pO2 ABG HCO3 ABG O2 Saturation ABG Base Excess ABG Hemoglobin Oxyhemoglobin Sodium Potassium 3.5 L Chloride 108.6 H Carbon Dioxide BUN 47 H Creatinine Glucose 207 H POC Glucose 63 L Lactic Acid Calcium 7.1 L Phosphorus Magnesium AST ALT Alkaline Phosphatase Lactate Dehydrogenase Troponin T C-Reactive Protein NT-Pro-B Natriuret Pep Total Protein Albumin LDL Cholesterol Direct Vitamin B12 Fluid Glucose Fluid Total Protein Vancomycin Trough Crossmatch 11/20/21 11/20/21 11/20/21 05:40 05:40 Unknown WBC RBC 3.40 L Hgb 9.1 L Hct 28.8 L MCV MCH 27 L MCHC RDW 20.7 H Plt Count Seg Neuts % (Manual) Lymphocytes % (Manual) Seg Neutrophils # Man Lymphocytes # (Manual) Monocytes # (Manual) PT INR D-Dimer ABG pH ABG pO2 ABG HCO3 ABG O2 Saturation ABG Base Excess -2.7 L ABG Hemoglobin 9.5 L Oxyhemoglobin 94.3 L Sodium Potassium 3.5 L Chloride 108.9 H Carbon Dioxide BUN 37 H Creatinine Glucose 117 H POC Glucose Lactic Acid Calcium 7.5 L Phosphorus Magnesium AST ALT Alkaline Phosphatase Lactate Dehydrogenase Troponin T C-Reactive Protein NT-Pro-B Natriuret Pep Total Protein Albumin LDL Cholesterol Direct Vitamin B12 Fluid Glucose Fluid Total Protein Vancomycin Trough Crossmatch 11/21/21 11/21/21 11/21/21 04:30 04:30 16:00 WBC RBC 3.25 L Hgb 8.6 L Hct 28.1 L MCV MCH 26 L MCHC RDW 20.7 H Plt Count Seg Neuts % (Manual) Lymphocytes % (Manual) Seg Neutrophils # Man Lymphocytes # (Manual) Monocytes # (Manual) PT INR D-Dimer ABG pH ABG pO2 114.2 H ABG HCO3 ABG O2 Saturation ABG Base Excess ABG Hemoglobin 9.1 L Oxyhemoglobin Sodium 134 L Potassium Chloride Carbon Dioxide 20 L BUN 34 H Creatinine Glucose POC Glucose Lactic Acid Calcium 7.1 L Phosphorus Magnesium AST ALT Alkaline Phosphatase Lactate Dehydrogenase Troponin T C-Reactive Protein NT-Pro-B Natriuret Pep Total Protein Albumin LDL Cholesterol Direct Vitamin B12 Fluid Glucose Fluid Total Protein Vancomycin Trough Crossmatch 11/22/21 11/22/21 11/22/21 07:07 07:07 23:54 WBC RBC 3.30 L Hgb 9.0 L Hct 28.5 L MCV MCH 27 L MCHC RDW 21.0 H Plt Count Seg Neuts % (Manual) Lymphocytes % (Manual) Seg Neutrophils # Man Lymphocytes # (Manual) Monocytes # (Manual) PT INR D-Dimer ABG pH ABG pO2 ABG HCO3 ABG O2 Saturation ABG Base Excess ABG Hemoglobin Oxyhemoglobin Sodium Potassium Chloride Carbon Dioxide BUN 32 H Creatinine Glucose 106 H POC Glucose 110 H Lactic Acid Calcium 7.5 L Phosphorus Magnesium AST ALT Alkaline Phosphatase Lactate Dehydrogenase Troponin T C-Reactive Protein NT-Pro-B Natriuret Pep Total Protein Albumin LDL Cholesterol Direct Vitamin B12 Fluid Glucose Fluid Total Protein Vancomycin Trough Crossmatch 11/23/21 11/23/21 11/23/21 04:38 04:38 06:01 WBC RBC 3.23 L Hgb 8.8 L Hct 28.0 L MCV MCH 27 L MCHC RDW 21.3 H Plt Count Seg Neuts % (Manual) Lymphocytes % (Manual) Seg Neutrophils # Man Lymphocytes # (Manual) Monocytes # (Manual) PT INR D-Dimer ABG pH ABG pO2 ABG HCO3 ABG O2 Saturation ABG Base Excess ABG Hemoglobin Oxyhemoglobin Sodium 136 L Potassium Chloride Carbon Dioxide 20 L BUN 32 H Creatinine Glucose 109 H POC Glucose 115 H Lactic Acid Calcium 7.7 L Phosphorus Magnesium AST ALT Alkaline Phosphatase Lactate Dehydrogenase Troponin T C-Reactive Protein NT-Pro-B Natriuret Pep Total Protein Albumin LDL Cholesterol Direct Vitamin B12 Fluid Glucose Fluid Total Protein Vancomycin Trough Crossmatch 11/23/21 11/24/21 11/24/21 11:40 00:03 04:13 WBC RBC 3.18 L Hgb 8.5 L Hct 27.5 L MCV MCH 27 L MCHC RDW 21.6 H Plt Count Seg Neuts % (Manual) Lymphocytes % (Manual) Seg Neutrophils # Man Lymphocytes # (Manual) Monocytes # (Manual) PT INR D-Dimer ABG pH ABG pO2 ABG HCO3 ABG O2 Saturation ABG Base Excess ABG Hemoglobin Oxyhemoglobin Sodium Potassium Chloride Carbon Dioxide BUN Creatinine Glucose POC Glucose 117 H 111 H Lactic Acid Calcium Phosphorus Magnesium AST ALT Alkaline Phosphatase Lactate Dehydrogenase Troponin T C-Reactive Protein NT-Pro-B Natriuret Pep Total Protein Albumin LDL Cholesterol Direct Vitamin B12 Fluid Glucose Fluid Total Protein Vancomycin Trough Crossmatch 11/24/21 11/24/21 11/24/21 04:13 05:30 11:10 WBC RBC Hgb Hct MCV MCH MCHC RDW Plt Count Seg Neuts % (Manual) Lymphocytes % (Manual) Seg Neutrophils # Man Lymphocytes # (Manual) Monocytes # (Manual) PT INR D-Dimer ABG pH ABG pO2 ABG HCO3 ABG O2 Saturation ABG Base Excess ABG Hemoglobin Oxyhemoglobin Sodium Potassium Chloride Carbon Dioxide BUN 31 H Creatinine Glucose 101 H POC Glucose 115 H 107 H Lactic Acid Calcium 7.7 L Phosphorus Magnesium AST ALT Alkaline Phosphatase Lactate Dehydrogenase Troponin T C-Reactive Protein NT-Pro-B Natriuret Pep Total Protein Albumin LDL Cholesterol Direct Vitamin B12 Fluid Glucose Fluid Total Protein Vancomycin Trough Crossmatch 11/24/21 11/24/21 11/25/21 16:34 17:57 05:12 WBC RBC 3.11 L Hgb 8.2 L Hct 26.6 L MCV MCH 26 L MCHC RDW 21.3 H Plt Count Seg Neuts % (Manual) Lymphocytes % (Manual) Seg Neutrophils # Man Lymphocytes # (Manual) Monocytes # (Manual) PT INR D-Dimer ABG pH ABG pO2 ABG HCO3 ABG O2 Saturation ABG Base Excess ABG Hemoglobin Oxyhemoglobin Sodium Potassium Chloride Carbon Dioxide BUN Creatinine Glucose POC Glucose 115 H 110 H Lactic Acid Calcium Phosphorus Magnesium AST ALT Alkaline Phosphatase Lactate Dehydrogenase Troponin T C-Reactive Protein NT-Pro-B Natriuret Pep Total Protein Albumin LDL Cholesterol Direct Vitamin B12 Fluid Glucose Fluid Total Protein Vancomycin Trough Crossmatch 11/25/21 11/25/21 11/26/21 05:12 11:20 05:00 WBC RBC 3.30 L Hgb 8.8 L Hct 28.2 L MCV MCH 27 L MCHC RDW 20.7 H Plt Count Seg Neuts % (Manual) Lymphocytes % (Manual) Seg Neutrophils # Man Lymphocytes # (Manual) Monocytes # (Manual) PT INR D-Dimer ABG pH ABG pO2 ABG HCO3 ABG O2 Saturation ABG Base Excess ABG Hemoglobin Oxyhemoglobin Sodium Potassium Chloride Carbon Dioxide BUN 32 H Creatinine Glucose 118 H POC Glucose 118 H Lactic Acid Calcium 8.2 L Phosphorus Magnesium AST ALT Alkaline Phosphatase Lactate Dehydrogenase Troponin T C-Reactive Protein NT-Pro-B Natriuret Pep Total Protein Albumin LDL Cholesterol Direct Vitamin B12 Fluid Glucose Fluid Total Protein Vancomycin Trough Crossmatch 11/26/21 11/26/21 11/26/21 05:00 05:00 05:44 WBC RBC Hgb Hct MCV MCH MCHC RDW Plt Count Seg Neuts % (Manual) Lymphocytes % (Manual) Seg Neutrophils # Man Lymphocytes # (Manual) Monocytes # (Manual) PT 16.9 H INR 1.24 H D-Dimer ABG pH ABG pO2 ABG HCO3 ABG O2 Saturation ABG Base Excess ABG Hemoglobin Oxyhemoglobin Sodium Potassium Chloride Carbon Dioxide BUN 31 H Creatinine Glucose 104 H POC Glucose 110 H Lactic Acid Calcium 7.9 L Phosphorus Magnesium AST ALT Alkaline Phosphatase Lactate Dehydrogenase Troponin T C-Reactive Protein NT-Pro-B Natriuret Pep Total Protein Albumin LDL Cholesterol Direct Vitamin B12 Fluid Glucose Fluid Total Protein Vancomycin Trough Crossmatch 11/26/21 11/27/21 11/27/21 23:55 07:40 07:40 WBC RBC 3.18 L Hgb 8.5 L Hct 27.0 L MCV MCH 27 L MCHC RDW 21.2 H Plt Count Seg Neuts % (Manual) Lymphocytes % (Manual) Seg Neutrophils # Man Lymphocytes # (Manual) Monocytes # (Manual) PT INR D-Dimer ABG pH ABG pO2 ABG HCO3 ABG O2 Saturation ABG Base Excess ABG Hemoglobin Oxyhemoglobin Sodium Potassium Chloride Carbon Dioxide BUN 27 H Creatinine Glucose 112 H POC Glucose 63 L Lactic Acid Calcium 7.6 L Phosphorus Magnesium AST ALT Alkaline Phosphatase Lactate Dehydrogenase Troponin T C-Reactive Protein NT-Pro-B Natriuret Pep Total Protein Albumin LDL Cholesterol Direct Vitamin B12 Fluid Glucose Fluid Total Protein Vancomycin Trough Crossmatch 11/27/21 11/27/21 11/27/21 12:04 13:40 13:40 WBC RBC 3.31 L Hgb 8.7 L Hct 28.0 L MCV MCH 26 L MCHC RDW 20.7 H Plt Count Seg Neuts % (Manual) Lymphocytes % (Manual) Seg Neutrophils # Man Lymphocytes # (Manual) Monocytes # (Manual) PT INR D-Dimer ABG pH ABG pO2 ABG HCO3 ABG O2 Saturation ABG Base Excess ABG Hemoglobin Oxyhemoglobin Sodium 136 L Potassium Chloride Carbon Dioxide BUN 25 H Creatinine Glucose 127 H POC Glucose 109 H Lactic Acid Calcium 7.6 L Phosphorus Magnesium 1.40 L AST ALT Alkaline Phosphatase Lactate Dehydrogenase Troponin T C-Reactive Protein NT-Pro-B Natriuret Pep Total Protein Albumin LDL Cholesterol Direct Vitamin B12 Fluid Glucose Fluid Total Protein Vancomycin Trough Crossmatch 11/27/21 11/27/21 11/28/21 17:44 23:33 12:20 WBC RBC Hgb Hct MCV MCH MCHC RDW Plt Count Seg Neuts % (Manual) Lymphocytes % (Manual) Seg Neutrophils # Man Lymphocytes # (Manual) Monocytes # (Manual) PT INR D-Dimer ABG pH ABG pO2 ABG HCO3 ABG O2 Saturation ABG Base Excess ABG Hemoglobin Oxyhemoglobin Sodium Potassium Chloride Carbon Dioxide BUN Creatinine Glucose POC Glucose 107 H 108 H 114 H Lactic Acid Calcium Phosphorus Magnesium AST ALT Alkaline Phosphatase Lactate Dehydrogenase Troponin T C-Reactive Protein NT-Pro-B Natriuret Pep Total Protein Albumin LDL Cholesterol Direct Vitamin B12 Fluid Glucose Fluid Total Protein Vancomycin Trough Crossmatch 11/29/21 11/29/21 11/29/21 00:09 03:20 03:20 WBC RBC 3.05 L Hgb 8.2 L Hct 25.8 L MCV MCH 27 L MCHC RDW 20.9 H Plt Count Seg Neuts % (Manual) Lymphocytes % (Manual) Seg Neutrophils # Man Lymphocytes # (Manual) Monocytes # (Manual) PT INR D-Dimer ABG pH ABG pO2 ABG HCO3 ABG O2 Saturation ABG Base Excess ABG Hemoglobin Oxyhemoglobin Sodium 133 L Potassium Chloride Carbon Dioxide BUN 24 H Creatinine Glucose 137 H POC Glucose 134 H Lactic Acid Calcium 7.4 L Phosphorus Magnesium AST ALT Alkaline Phosphatase Lactate Dehydrogenase Troponin T C-Reactive Protein NT-Pro-B Natriuret Pep Total Protein Albumin LDL Cholesterol Direct Vitamin B12 Fluid Glucose Fluid Total Protein Vancomycin Trough Crossmatch 11/29/21 11/29/21 11/29/21 05:38 11:39 17:11 WBC RBC Hgb Hct MCV MCH MCHC RDW Plt Count Seg Neuts % (Manual) Lymphocytes % (Manual) Seg Neutrophils # Man Lymphocytes # (Manual) Monocytes # (Manual) PT INR D-Dimer ABG pH ABG pO2 ABG HCO3 ABG O2 Saturation ABG Base Excess ABG Hemoglobin Oxyhemoglobin Sodium Potassium Chloride Carbon Dioxide BUN Creatinine Glucose POC Glucose 117 H 143 H 124 H Lactic Acid Calcium Phosphorus Magnesium AST ALT Alkaline Phosphatase Lactate Dehydrogenase Troponin T C-Reactive Protein NT-Pro-B Natriuret Pep Total Protein Albumin LDL Cholesterol Direct Vitamin B12 Fluid Glucose Fluid Total Protein Vancomycin Trough Crossmatch 11/29/21 11/30/21 11/30/21 20:15 05:40 05:40 WBC 12.6 H RBC 3.41 L Hgb 9.1 L Hct 28.9 L MCV MCH 27 L MCHC RDW 20.4 H Plt Count Seg Neuts % (Manual) Lymphocytes % (Manual) Seg Neutrophils # Man Lymphocytes # (Manual) Monocytes # (Manual) PT INR D-Dimer ABG pH ABG pO2 ABG HCO3 ABG O2 Saturation ABG Base Excess ABG Hemoglobin Oxyhemoglobin Sodium Potassium Chloride Carbon Dioxide BUN 24 H Creatinine Glucose 131 H POC Glucose Lactic Acid Calcium 7.6 L Phosphorus Magnesium AST ALT Alkaline Phosphatase Lactate Dehydrogenase Troponin T 0.045 H C-Reactive Protein NT-Pro-B Natriuret Pep Total Protein Albumin LDL Cholesterol Direct 25 L Vitamin B12 Fluid Glucose Fluid Total Protein Vancomycin Trough Crossmatch 11/30/21 11/30/21 12/01/21 11:29 16:51 05:00 WBC RBC 2.97 L Hgb 8.0 L Hct 25.0 L MCV MCH 27 L MCHC RDW 20.8 H Plt Count Seg Neuts % (Manual) Lymphocytes % (Manual) Seg Neutrophils # Man Lymphocytes # (Manual) Monocytes # (Manual) PT INR D-Dimer ABG pH ABG pO2 ABG HCO3 ABG O2 Saturation ABG Base Excess ABG Hemoglobin Oxyhemoglobin Sodium Potassium Chloride Carbon Dioxide BUN Creatinine Glucose POC Glucose 123 H 114 H Lactic Acid Calcium Phosphorus Magnesium AST ALT Alkaline Phosphatase Lactate Dehydrogenase Troponin T C-Reactive Protein NT-Pro-B Natriuret Pep Total Protein Albumin LDL Cholesterol Direct Vitamin B12 Fluid Glucose Fluid Total Protein Vancomycin Trough Crossmatch 12/01/21 12/01/21 12/01/21 05:00 05:25 11:54 WBC RBC Hgb Hct MCV MCH MCHC RDW Plt Count Seg Neuts % (Manual) Lymphocytes % (Manual) Seg Neutrophils # Man Lymphocytes # (Manual) Monocytes # (Manual) PT INR D-Dimer ABG pH ABG pO2 ABG HCO3 ABG O2 Saturation ABG Base Excess ABG Hemoglobin Oxyhemoglobin Sodium 136 L Potassium Chloride Carbon Dioxide BUN 24 H Creatinine Glucose 117 H POC Glucose 108 H 107 H Lactic Acid Calcium 7.5 L Phosphorus Magnesium 1.60 L AST ALT Alkaline Phosphatase Lactate Dehydrogenase Troponin T C-Reactive Protein NT-Pro-B Natriuret Pep Total Protein Albumin LDL Cholesterol Direct Vitamin B12 Fluid Glucose Fluid Total Protein Vancomycin Trough Crossmatch 12/01/21 12/02/21 12/02/21 17:40 00:07 04:20 WBC RBC 2.92 L Hgb 7.7 L Hct 24.3 L MCV MCH 26 L MCHC RDW 20.5 H Plt Count Seg Neuts % (Manual) Lymphocytes % (Manual) Seg Neutrophils # Man Lymphocytes # (Manual) Monocytes # (Manual) PT INR D-Dimer ABG pH ABG pO2 ABG HCO3 ABG O2 Saturation ABG Base Excess ABG Hemoglobin Oxyhemoglobin Sodium Potassium Chloride Carbon Dioxide BUN Creatinine Glucose POC Glucose 123 H 110 H Lactic Acid Calcium Phosphorus Magnesium AST ALT Alkaline Phosphatase Lactate Dehydrogenase Troponin T C-Reactive Protein NT-Pro-B Natriuret Pep Total Protein Albumin LDL Cholesterol Direct Vitamin B12 Fluid Glucose Fluid Total Protein Vancomycin Trough Crossmatch 12/02/21 12/02/21 12/02/21 04:20 11:17 18:20 WBC RBC Hgb Hct MCV MCH MCHC RDW Plt Count Seg Neuts % (Manual) Lymphocytes % (Manual) Seg Neutrophils # Man Lymphocytes # (Manual) Monocytes # (Manual) PT INR D-Dimer ABG pH ABG pO2 ABG HCO3 ABG O2 Saturation ABG Base Excess ABG Hemoglobin Oxyhemoglobin Sodium 135 L Potassium Chloride Carbon Dioxide BUN 26 H Creatinine Glucose 121 H POC Glucose 117 H 113 H Lactic Acid Calcium 7.4 L Phosphorus Magnesium AST ALT Alkaline Phosphatase Lactate Dehydrogenase Troponin T C-Reactive Protein NT-Pro-B Natriuret Pep Total Protein Albumin LDL Cholesterol Direct Vitamin B12 Fluid Glucose Fluid Total Protein Vancomycin Trough Crossmatch 12/03/21 12/03/21 12/03/21 00:12 04:00 04:00 WBC RBC 2.99 L Hgb 7.8 L Hct 24.6 L MCV MCH 26 L MCHC RDW 20.2 H Plt Count Seg Neuts % (Manual) Lymphocytes % (Manual) Seg Neutrophils # Man Lymphocytes # (Manual) Monocytes # (Manual) PT INR D-Dimer ABG pH ABG pO2 ABG HCO3 ABG O2 Saturation ABG Base Excess ABG Hemoglobin Oxyhemoglobin Sodium 136 L Potassium Chloride Carbon Dioxide BUN 27 H Creatinine Glucose 133 H POC Glucose 121 H Lactic Acid Calcium 7.5 L Phosphorus Magnesium AST ALT Alkaline Phosphatase Lactate Dehydrogenase Troponin T C-Reactive Protein NT-Pro-B Natriuret Pep Total Protein Albumin LDL Cholesterol Direct Vitamin B12 Fluid Glucose Fluid Total Protein Vancomycin Trough Crossmatch 12/03/21 12/03/21 12/03/21 06:30 11:13 16:00 WBC RBC Hgb Hct MCV MCH MCHC RDW Plt Count Seg Neuts % (Manual) Lymphocytes % (Manual) Seg Neutrophils # Man Lymphocytes # (Manual) Monocytes # (Manual) PT INR D-Dimer ABG pH ABG pO2 ABG HCO3 ABG O2 Saturation ABG Base Excess ABG Hemoglobin Oxyhemoglobin Sodium Potassium Chloride Carbon Dioxide BUN Creatinine Glucose POC Glucose 129 H 125 H 125 H Lactic Acid Calcium Phosphorus Magnesium AST ALT Alkaline Phosphatase Lactate Dehydrogenase Troponin T C-Reactive Protein NT-Pro-B Natriuret Pep Total Protein Albumin LDL Cholesterol Direct Vitamin B12 Fluid Glucose Fluid Total Protein Vancomycin Trough Crossmatch 12/03/21 12/04/2112/04/22 23:32 04:00 05:36 WBC RBC Hgb Hct MCV MCH MCHC RDW Plt Count Seg Neuts % (Manual) Lymphocytes % (Manual) Seg Neutrophils # Man Lymphocytes # (Manual) Monocytes # (Manual) PT INR D-Dimer ABG pH ABG pO2 ABG HCO3 ABG O2 Saturation ABG Base Excess ABG Hemoglobin Oxyhemoglobin Sodium Potassium 3.5 L Chloride Carbon Dioxide BUN 26 H Creatinine 0.5 L Glucose 151 H POC Glucose 133 H 142 H Lactic Acid Calcium 8.3 L Phosphorus Magnesium AST ALT Alkaline Phosphatase Lactate Dehydrogenase Troponin T C-Reactive Protein NT-Pro-B Natriuret Pep Total Protein Albumin LDL Cholesterol Direct Vitamin B12 Fluid Glucose Fluid Total Protein Vancomycin Trough Crossmatch 12/04/21 12/04/21 12/05/21 11:24 15:58 04:36 WBC RBC Hgb Hct MCV MCH MCHC RDW Plt Count Seg Neuts % (Manual) Lymphocytes % (Manual) Seg Neutrophils # Man Lymphocytes # (Manual) Monocytes # (Manual) PT INR D-Dimer ABG pH ABG pO2 ABG HCO3 ABG O2 Saturation ABG Base Excess ABG Hemoglobin Oxyhemoglobin Sodium Potassium Chloride Carbon Dioxide BUN 21 H Creatinine 0.5 L Glucose 119 H POC Glucose 130 H 111 H Lactic Acid Calcium 8.3 L Phosphorus Magnesium AST ALT Alkaline Phosphatase Lactate Dehydrogenase Troponin T C-Reactive Protein NT-Pro-B Natriuret Pep Total Protein Albumin LDL Cholesterol Direct Vitamin B12 Fluid Glucose Fluid Total Protein Vancomycin Trough Crossmatch 12/05/21 12/05/21 12/05/21 05:15 10:40 11:12 WBC RBC 2.98 L Hgb 8.1 L Hct 24.6 L MCV MCH 27 L MCHC RDW 20.8 H Plt Count Seg Neuts % (Manual) Lymphocytes % (Manual) Seg Neutrophils # Man Lymphocytes # (Manual) Monocytes # (Manual) PT INR D-Dimer ABG pH ABG pO2 ABG HCO3 ABG O2 Saturation ABG Base Excess ABG Hemoglobin Oxyhemoglobin Sodium Potassium Chloride Carbon Dioxide BUN Creatinine Glucose POC Glucose 107 H 110 H Lactic Acid Calcium Phosphorus Magnesium AST ALT Alkaline Phosphatase Lactate Dehydrogenase Troponin T C-Reactive Protein NT-Pro-B Natriuret Pep Total Protein Albumin LDL Cholesterol Direct Vitamin B12 Fluid Glucose Fluid Total Protein Vancomycin Trough Crossmatch 12/05/21 12/06/21 12/06/21 23:39 04:25 04:25 WBC RBC 2.95 L Hgb 7.9 L Hct 24.7 L MCV MCH 27 L MCHC RDW 20.9 H Plt Count Seg Neuts % (Manual) Lymphocytes % (Manual) Seg Neutrophils # Man Lymphocytes # (Manual) Monocytes # (Manual) PT INR D-Dimer ABG pH ABG pO2 ABG HCO3 ABG O2 Saturation ABG Base Excess ABG Hemoglobin Oxyhemoglobin Sodium Potassium Chloride Carbon Dioxide BUN 22 H Creatinine 0.5 L Glucose 136 H POC Glucose 118 H Lactic Acid Calcium 8.2 L Phosphorus Magnesium AST ALT Alkaline Phosphatase Lactate Dehydrogenase Troponin T C-Reactive Protein NT-Pro-B Natriuret Pep Total Protein Albumin LDL Cholesterol Direct Vitamin B12 Fluid Glucose Fluid Total Protein Vancomycin Trough Crossmatch 12/06/21 12/06/21 12/07/21 05:28 11:27 04:00 WBC RBC Hgb 7.2 L Hct 21.8 L MCV MCH MCHC RDW Plt Count Seg Neuts % (Manual) Lymphocytes % (Manual) Seg Neutrophils # Man Lymphocytes # (Manual) Monocytes # (Manual) PT INR D-Dimer ABG pH ABG pO2 ABG HCO3 ABG O2 Saturation ABG Base Excess ABG Hemoglobin Oxyhemoglobin Sodium Potassium Chloride Carbon Dioxide BUN Creatinine Glucose POC Glucose 142 H 126 H Lactic Acid Calcium Phosphorus Magnesium AST ALT Alkaline Phosphatase Lactate Dehydrogenase Troponin T C-Reactive Protein NT-Pro-B Natriuret Pep Total Protein Albumin LDL Cholesterol Direct Vitamin B12 Fluid Glucose Fluid Total Protein Vancomycin Trough Crossmatch 12/07/21 12/07/21 12/07/21 04:00 05:30 11:12 WBC RBC Hgb Hct MCV MCH MCHC RDW Plt Count Seg Neuts % (Manual) Lymphocytes % (Manual) Seg Neutrophils # Man Lymphocytes # (Manual) Monocytes # (Manual) PT INR D-Dimer ABG pH ABG pO2 ABG HCO3 ABG O2 Saturation ABG Base Excess ABG Hemoglobin Oxyhemoglobin Sodium Potassium Chloride Carbon Dioxide BUN 22 H Creatinine Glucose 119 H POC Glucose 121 H 124 H Lactic Acid Calcium 8.0 L Phosphorus Magnesium AST ALT Alkaline Phosphatase Lactate Dehydrogenase Troponin T C-Reactive Protein NT-Pro-B Natriuret Pep Total Protein Albumin LDL Cholesterol Direct Vitamin B12 Fluid Glucose Fluid Total Protein Vancomycin Trough Crossmatch 12/08/21 12/08/21 12/08/21 04:00 04:00 05:39 WBC RBC 2.81 L Hgb 7.7 L Hct 23.5 L MCV MCH MCHC RDW 21.2 H Plt Count Seg Neuts % (Manual) Lymphocytes % (Manual) Seg Neutrophils # Man Lymphocytes # (Manual) Monocytes # (Manual) PT INR D-Dimer ABG pH ABG pO2 ABG HCO3 ABG O2 Saturation ABG Base Excess ABG Hemoglobin Oxyhemoglobin Sodium 135 L Potassium Chloride Carbon Dioxide BUN 23 H Creatinine Glucose 109 H POC Glucose 112 H Lactic Acid Calcium Phosphorus Magnesium AST ALT Alkaline Phosphatase Lactate Dehydrogenase Troponin T C-Reactive Protein NT-Pro-B Natriuret Pep Total Protein Albumin LDL Cholesterol Direct Vitamin B12 Fluid Glucose Fluid Total Protein Vancomycin Trough Crossmatch 12/08/21 12/09/21 12/09/21 11:03 04:20 04:20 WBC RBC 2.67 L Hgb 7.6 L Hct 22.1 L MCV MCH MCHC RDW 20.8 H Plt Count Seg Neuts % (Manual) Lymphocytes % (Manual) Seg Neutrophils # Man Lymphocytes # (Manual) Monocytes # (Manual) PT INR D-Dimer ABG pH ABG pO2 ABG HCO3 ABG O2 Saturation ABG Base Excess ABG Hemoglobin Oxyhemoglobin Sodium 135 L Potassium Chloride 97.8 L Carbon Dioxide BUN 26 H Creatinine Glucose 119 H POC Glucose 108 H Lactic Acid Calcium 7.7 L Phosphorus Magnesium AST ALT Alkaline Phosphatase Lactate Dehydrogenase Troponin T C-Reactive Protein NT-Pro-B Natriuret Pep Total Protein Albumin LDL Cholesterol Direct Vitamin B12 Fluid Glucose Fluid Total Protein Vancomycin Trough Crossmatch 12/09/21 12/10/21 12/10/21 11:26 04:33 11:12 WBC RBC Hgb Hct MCV MCH MCHC RDW Plt Count Seg Neuts % (Manual) Lymphocytes % (Manual) Seg Neutrophils # Man Lymphocytes # (Manual) Monocytes # (Manual) PT INR D-Dimer ABG pH ABG pO2 ABG HCO3 ABG O2 Saturation ABG Base Excess ABG Hemoglobin Oxyhemoglobin Sodium 136 L Potassium Chloride Carbon Dioxide BUN 27 H Creatinine Glucose 117 H POC Glucose 110 H 117 H Lactic Acid Calcium 8.2 L Phosphorus Magnesium AST ALT Alkaline Phosphatase Lactate Dehydrogenase Troponin T C-Reactive Protein NT-Pro-B Natriuret Pep Total Protein Albumin LDL Cholesterol Direct Vitamin B12 Fluid Glucose Fluid Total Protein Vancomycin Trough Crossmatch 02/23/22 02/23/22 02/24/22 16:02 23:31 04:35 WBC RBC 2.57 L Hgb 7.0 L Hct 21.4 L MCV MCH 27 L MCHC RDW 21.1 H Plt Count Seg Neuts % (Manual) Lymphocytes % (Manual) Seg Neutrophils # Man Lymphocytes # (Manual) Monocytes # (Manual) PT INR D-Dimer ABG pH ABG pO2 ABG HCO3 ABG O2 Saturation ABG Base Excess ABG Hemoglobin Oxyhemoglobin Sodium Potassium Chloride Carbon Dioxide BUN Creatinine Glucose POC Glucose 137 H 111 H Lactic Acid Calcium Phosphorus Magnesium AST ALT Alkaline Phosphatase Lactate Dehydrogenase Troponin T C-Reactive Protein NT-Pro-B Natriuret Pep Total Protein Albumin LDL Cholesterol Direct Vitamin B12 Fluid Glucose Fluid Total Protein Vancomycin Trough Crossmatch 12/11/21 12/11/21 12/11/21 04:35 12:46 16:07 WBC RBC Hgb Hct MCV MCH MCHC RDW Plt Count Seg Neuts % (Manual) Lymphocytes % (Manual) Seg Neutrophils # Man Lymphocytes # (Manual) Monocytes # (Manual) PT INR D-Dimer ABG pH ABG pO2 ABG HCO3 ABG O2 Saturation ABG Base Excess ABG Hemoglobin Oxyhemoglobin Sodium 136 L Potassium Chloride Carbon Dioxide BUN 27 H Creatinine Glucose 112 H POC Glucose 115 H 111 H Lactic Acid Calcium 7.6 L Phosphorus Magnesium AST ALT Alkaline Phosphatase Lactate Dehydrogenase Troponin T C-Reactive Protein NT-Pro-B Natriuret Pep Total Protein Albumin LDL Cholesterol Direct Vitamin B12 Fluid Glucose Fluid Total Protein Vancomycin Trough Crossmatch 12/11/21 12/12/21 12/12/21 23:42 04:30 04:30 WBC RBC 2.60 L Hgb 7.1 L Hct 21.5 L MCV MCH 27 L MCHC RDW 20.3 H Plt Count Seg Neuts % (Manual) Lymphocytes % (Manual) Seg Neutrophils # Man Lymphocytes # (Manual) Monocytes # (Manual) PT INR D-Dimer ABG pH ABG pO2 ABG HCO3 ABG O2 Saturation ABG Base Excess ABG Hemoglobin Oxyhemoglobin Sodium 135 L Potassium Chloride 97.9 L Carbon Dioxide BUN 26 H Creatinine 0.5 L Glucose 138 H POC Glucose 115 H Lactic Acid Calcium 8.2 L Phosphorus Magnesium AST ALT Alkaline Phosphatase Lactate Dehydrogenase Troponin T C-Reactive Protein NT-Pro-B Natriuret Pep Total Protein Albumin LDL Cholesterol Direct Vitamin B12 Fluid Glucose Fluid Total Protein Vancomycin Trough Crossmatch 12/12/21 12/12/21 12/12/21 04:30 05:10 11:51 WBC RBC Hgb Hct MCV MCH MCHC RDW Plt Count Seg Neuts % (Manual) Lymphocytes % (Manual) Seg Neutrophils # Man Lymphocytes # (Manual) Monocytes # (Manual) PT INR D-Dimer ABG pH ABG pO2 ABG HCO3 ABG O2 Saturation ABG Base Excess ABG Hemoglobin Oxyhemoglobin Sodium Potassium Chloride Carbon Dioxide BUN Creatinine Glucose POC Glucose 119 H 119 H Lactic Acid Calcium Phosphorus Magnesium AST ALT Alkaline Phosphatase Lactate Dehydrogenase Troponin T C-Reactive Protein NT-Pro-B Natriuret Pep Total Protein Albumin LDL Cholesterol Direct Vitamin B12 Fluid Glucose Fluid Total Protein Vancomycin Trough Crossmatch See Detail 12/13/21 12/13/21 12/13/21 00:52 04:00 04:00 WBC RBC 2.73 L Hgb 7.4 L Hct 22.8 L MCV MCH 27 L MCHC RDW 20.5 H Plt Count Seg Neuts % (Manual) Lymphocytes % (Manual) Seg Neutrophils # Man Lymphocytes # (Manual) Monocytes # (Manual) PT INR D-Dimer ABG pH ABG pO2 ABG HCO3 ABG O2 Saturation ABG Base Excess ABG Hemoglobin Oxyhemoglobin Sodium 134 L Potassium Chloride 96.7 L Carbon Dioxide BUN 23 H Creatinine 0.5 L Glucose 131 H POC Glucose 131 H Lactic Acid Calcium 8.1 L Phosphorus Magnesium AST ALT Alkaline Phosphatase Lactate Dehydrogenase Troponin T C-Reactive Protein NT-Pro-B Natriuret Pep Total Protein Albumin LDL Cholesterol Direct Vitamin B12 Fluid Glucose Fluid Total Protein Vancomycin Trough Crossmatch 12/13/21 12/13/21 12/13/21 05:23 12:11 17:18 WBC RBC Hgb Hct MCV MCH MCHC RDW Plt Count Seg Neuts % (Manual) Lymphocytes % (Manual) Seg Neutrophils # Man Lymphocytes # (Manual) Monocytes # (Manual) PT INR D-Dimer ABG pH ABG pO2 ABG HCO3 ABG O2 Saturation ABG Base Excess ABG Hemoglobin Oxyhemoglobin Sodium Potassium Chloride Carbon Dioxide BUN Creatinine Glucose POC Glucose 121 H 143 H 148 H Lactic Acid Calcium Phosphorus Magnesium AST ALT Alkaline Phosphatase Lactate Dehydrogenase Troponin T C-Reactive Protein NT-Pro-B Natriuret Pep Total Protein Albumin LDL Cholesterol Direct Vitamin B12 Fluid Glucose Fluid Total Protein Vancomycin Trough Crossmatch 12/14/21 12/14/21 12/14/21 00:54 04:20 04:20 WBC RBC 2.39 L Hgb 6.5 L Hct 20.3 L MCV MCH 27 L MCHC RDW 20.3 H Plt Count Seg Neuts % (Manual) Lymphocytes % (Manual) Seg Neutrophils # Man Lymphocytes # (Manual) Monocytes # (Manual) PT INR D-Dimer ABG pH ABG pO2 ABG HCO3 ABG O2 Saturation ABG Base Excess ABG Hemoglobin Oxyhemoglobin Sodium 130 L Potassium Chloride 93.5 L Carbon Dioxide BUN 25 H Creatinine Glucose 123 H POC Glucose 123 H Lactic Acid Calcium 8.0 L Phosphorus Magnesium AST ALT Alkaline Phosphatase Lactate Dehydrogenase Troponin T C-Reactive Protein NT-Pro-B Natriuret Pep Total Protein Albumin LDL Cholesterol Direct Vitamin B12 Fluid Glucose Fluid Total Protein Vancomycin Trough Crossmatch 12/14/21 12/14/21 12/14/21 05:06 08:17 10:30 WBC RBC Hgb Hct MCV MCH MCHC RDW Plt Count Seg Neuts % (Manual) Lymphocytes % (Manual) Seg Neutrophils # Man Lymphocytes # (Manual) Monocytes # (Manual) PT INR D-Dimer ABG pH ABG pO2 ABG HCO3 ABG O2 Saturation ABG Base Excess ABG Hemoglobin Oxyhemoglobin Sodium Potassium Chloride Carbon Dioxide BUN Creatinine Glucose POC Glucose 131 H 119 H Lactic Acid Calcium Phosphorus Magnesium AST ALT Alkaline Phosphatase Lactate Dehydrogenase Troponin T C-Reactive Protein NT-Pro-B Natriuret Pep Total Protein Albumin LDL Cholesterol Direct Vitamin B12 Fluid Glucose Fluid Total Protein Vancomycin Trough Crossmatch See Detail 12/14/21 12/14/21 12/14/21 12:15 16:37 23:27 WBC RBC Hgb Hct MCV MCH MCHC RDW Plt Count Seg Neuts % (Manual) Lymphocytes % (Manual) Seg Neutrophils # Man Lymphocytes # (Manual) Monocytes # (Manual) PT INR D-Dimer ABG pH ABG pO2 ABG HCO3 ABG O2 Saturation ABG Base Excess ABG Hemoglobin Oxyhemoglobin Sodium Potassium Chloride Carbon Dioxide BUN Creatinine Glucose POC Glucose 147 H 141 H 130 H Lactic Acid Calcium Phosphorus Magnesium AST ALT Alkaline Phosphatase Lactate Dehydrogenase Troponin T C-Reactive Protein NT-Pro-B Natriuret Pep Total Protein Albumin LDL Cholesterol Direct Vitamin B12 Fluid Glucose Fluid Total Protein Vancomycin Trough Crossmatch 12/15/21 12/15/21 12/15/21 05:00 07:00 07:00 WBC 12.3 H RBC 3.27 L Hgb 8.8 L Hct 27.5 L D MCV MCH 27 L MCHC RDW 19.0 H Plt Count Seg Neuts % (Manual) Lymphocytes % (Manual) Seg Neutrophils # Man Lymphocytes # (Manual) Monocytes # (Manual) PT INR D-Dimer ABG pH ABG pO2 ABG HCO3 ABG O2 Saturation ABG Base Excess ABG Hemoglobin Oxyhemoglobin Sodium 134 L Potassium Chloride 95.7 L Carbon Dioxide BUN 28 H Creatinine Glucose 129 H POC Glucose 129 H Lactic Acid Calcium 8.2 L Phosphorus Magnesium AST ALT Alkaline Phosphatase Lactate Dehydrogenase Troponin T C-Reactive Protein NT-Pro-B Natriuret Pep Total Protein Albumin LDL Cholesterol Direct Vitamin B12 Fluid Glucose Fluid Total Protein Vancomycin Trough Crossmatch 12/15/21 12/15/21 12/15/21 11:18 16:00 23:39 WBC RBC Hgb Hct MCV MCH MCHC RDW Plt Count Seg Neuts % (Manual) Lymphocytes % (Manual) Seg Neutrophils # Man Lymphocytes # (Manual) Monocytes # (Manual) PT INR D-Dimer ABG pH ABG pO2 ABG HCO3 ABG O2 Saturation ABG Base Excess ABG Hemoglobin Oxyhemoglobin Sodium Potassium Chloride Carbon Dioxide BUN Creatinine Glucose POC Glucose 139 H 137 H 146 H Lactic Acid Calcium Phosphorus Magnesium AST ALT Alkaline Phosphatase Lactate Dehydrogenase Troponin T C-Reactive Protein NT-Pro-B Natriuret Pep Total Protein Albumin LDL Cholesterol Direct Vitamin B12 Fluid Glucose Fluid Total Protein Vancomycin Trough Crossmatch 12/16/21 12/16/21 12/16/21 05:24 10:21 10:21 WBC 15.3 H RBC 3.24 L Hgb 8.9 L Hct 27.7 L MCV MCH MCHC RDW 19.0 H Plt Count Seg Neuts % (Manual) Lymphocytes % (Manual) Seg Neutrophils # Man Lymphocytes # (Manual) Monocytes # (Manual) PT INR D-Dimer ABG pH ABG pO2 ABG HCO3 ABG O2 Saturation ABG Base Excess ABG Hemoglobin Oxyhemoglobin Sodium 131 L Potassium 3.5 L Chloride 92.7 L Carbon Dioxide BUN 36 H Creatinine Glucose 160 H POC Glucose 121 H Lactic Acid Calcium Phosphorus Magnesium 1.60 L AST ALT Alkaline Phosphatase Lactate Dehydrogenase Troponin T C-Reactive Protein NT-Pro-B Natriuret Pep Total Protein Albumin LDL Cholesterol Direct Vitamin B12 Fluid Glucose Fluid Total Protein Vancomycin Trough Crossmatch 12/16/21 12/16/21 12/16/21 11:21 18:28 20:52 WBC RBC Hgb Hct MCV MCH MCHC RDW Plt Count Seg Neuts % (Manual) Lymphocytes % (Manual) Seg Neutrophils # Man Lymphocytes # (Manual) Monocytes # (Manual) PT INR D-Dimer ABG pH 7.479 H ABG pO2 79.3 L ABG HCO3 27.3 H ABG O2 Saturation ABG Base Excess 3.6 H ABG Hemoglobin 9.1 L Oxyhemoglobin 94.9 L Sodium Potassium Chloride Carbon Dioxide BUN Creatinine Glucose POC Glucose 153 H 132 H Lactic Acid Calcium Phosphorus Magnesium AST ALT Alkaline Phosphatase Lactate Dehydrogenase Troponin T C-Reactive Protein NT-Pro-B Natriuret Pep Total Protein Albumin LDL Cholesterol Direct Vitamin B12 Fluid Glucose Fluid Total Protein Vancomycin Trough Crossmatch 12/16/21 12/17/21 12/17/21 23:30 04:25 04:25 WBC 12.3 H RBC 2.16 L Hgb 6.0 L Hct 18.1 L* D MCV MCH MCHC RDW 19.4 H Plt Count Seg Neuts % (Manual) Lymphocytes % (Manual) Seg Neutrophils # Man Lymphocytes # (Manual) Monocytes # (Manual) PT INR D-Dimer ABG pH ABG pO2 ABG HCO3 ABG O2 Saturation ABG Base Excess ABG Hemoglobin Oxyhemoglobin Sodium 132 L Potassium 3.2 L Chloride 112.0 H Carbon Dioxide BUN 32 H Creatinine Glucose 122 H POC Glucose 137 H Lactic Acid Calcium 6.8 L D Phosphorus Magnesium AST ALT Alkaline Phosphatase Lactate Dehydrogenase Troponin T C-Reactive Protein NT-Pro-B Natriuret Pep Total Protein Albumin LDL Cholesterol Direct Vitamin B12 Fluid Glucose Fluid Total Protein Vancomycin Trough Crossmatch 12/17/21 12/17/21 12/17/21 05:30 11:49 14:45 WBC RBC Hgb 9.7 L D Hct MCV MCH MCHC RDW Plt Count Seg Neuts % (Manual) Lymphocytes % (Manual) Seg Neutrophils # Man Lymphocytes # (Manual) Monocytes # (Manual) PT INR D-Dimer ABG pH ABG pO2 ABG HCO3 ABG O2 Saturation ABG Base Excess ABG Hemoglobin Oxyhemoglobin Sodium Potassium Chloride Carbon Dioxide BUN Creatinine Glucose POC Glucose 137 H 143 H Lactic Acid Calcium Phosphorus Magnesium AST ALT Alkaline Phosphatase Lactate Dehydrogenase Troponin T C-Reactive Protein NT-Pro-B Natriuret Pep Total Protein Albumin LDL Cholesterol Direct Vitamin B12 Fluid Glucose Fluid Total Protein Vancomycin Trough Crossmatch 12/17/21 12/18/2112/18/22 17:01 05:04 05:04 WBC 13.8 H RBC 3.44 L Hgb 9.9 L Hct 28.8 L MCV MCH MCHC RDW 18.1 H Plt Count Seg Neuts % (Manual) Lymphocytes % (Manual) Seg Neutrophils # Man Lymphocytes # (Manual) Monocytes # (Manual) PT INR D-Dimer ABG pH ABG pO2 ABG HCO3 ABG O2 Saturation ABG Base Excess ABG Hemoglobin Oxyhemoglobin Sodium 132 L Potassium Chloride 97.4 L Carbon Dioxide BUN 38 H Creatinine Glucose 134 H POC Glucose 132 H Lactic Acid Calcium Phosphorus Magnesium AST ALT Alkaline Phosphatase Lactate Dehydrogenase Troponin T C-Reactive Protein NT-Pro-B Natriuret Pep Total Protein Albumin LDL Cholesterol Direct Vitamin B12 Fluid Glucose Fluid Total Protein Vancomycin Trough Crossmatch 12/18/21 12/18/21 12/18/21 05:28 10:57 16:27 WBC RBC Hgb Hct MCV MCH MCHC RDW Plt Count Seg Neuts % (Manual) Lymphocytes % (Manual) Seg Neutrophils # Man Lymphocytes # (Manual) Monocytes # (Manual) PT INR D-Dimer ABG pH ABG pO2 ABG HCO3 ABG O2 Saturation ABG Base Excess ABG Hemoglobin Oxyhemoglobin Sodium Potassium Chloride Carbon Dioxide BUN Creatinine Glucose POC Glucose 118 H 132 H 130 H Lactic Acid Calcium Phosphorus Magnesium AST ALT Alkaline Phosphatase Lactate Dehydrogenase Troponin T C-Reactive Protein NT-Pro-B Natriuret Pep Total Protein Albumin LDL Cholesterol Direct Vitamin B12 Fluid Glucose Fluid Total Protein Vancomycin Trough Crossmatch 12/19/21 12/19/21 12/19/21 00:02 04:41 04:41 WBC 16.0 H RBC 3.45 L Hgb 9.7 L Hct 29.1 L MCV MCH MCHC RDW 17.8 H Plt Count Seg Neuts % (Manual) Lymphocytes % (Manual) Seg Neutrophils # Man Lymphocytes # (Manual) Monocytes # (Manual) PT INR D-Dimer ABG pH ABG pO2 ABG HCO3 ABG O2 Saturation ABG Base Excess ABG Hemoglobin Oxyhemoglobin Sodium 133 L Potassium Chloride 97.9 L Carbon Dioxide BUN 36 H Creatinine 0.5 L Glucose 126 H POC Glucose 127 H Lactic Acid Calcium 8.3 L Phosphorus Magnesium AST ALT Alkaline Phosphatase Lactate Dehydrogenase Troponin T C-Reactive Protein NT-Pro-B Natriuret Pep Total Protein Albumin LDL Cholesterol Direct Vitamin B12 Fluid Glucose Fluid Total Protein Vancomycin Trough Crossmatch 12/19/21 12/19/21 12/19/21 05:26 12:20 16:43 WBC RBC Hgb Hct MCV MCH MCHC RDW Plt Count Seg Neuts % (Manual) Lymphocytes % (Manual) Seg Neutrophils # Man Lymphocytes # (Manual) Monocytes # (Manual) PT INR D-Dimer ABG pH ABG pO2 ABG HCO3 ABG O2 Saturation ABG Base Excess ABG Hemoglobin Oxyhemoglobin Sodium Potassium Chloride Carbon Dioxide BUN Creatinine Glucose POC Glucose 119 H 145 H 126 H Lactic Acid Calcium Phosphorus Magnesium AST ALT Alkaline Phosphatase Lactate Dehydrogenase Troponin T C-Reactive Protein NT-Pro-B Natriuret Pep Total Protein Albumin LDL Cholesterol Direct Vitamin B12 Fluid Glucose Fluid Total Protein Vancomycin Trough Crossmatch 12/19/21 12/20/21 12/20/21 23:30 04:54 04:54 WBC 12.3 H RBC 3.54 L Hgb 10.0 L Hct 29.5 L MCV MCH MCHC RDW 17.8 H Plt Count Seg Neuts % (Manual) 88.0 H Lymphocytes % (Manual) 6.0 L Seg Neutrophils # Man 10.8 H Lymphocytes # (Manual) 0.7 L Monocytes # (Manual) PT INR D-Dimer ABG pH ABG pO2 ABG HCO3 ABG O2 Saturation ABG Base Excess ABG Hemoglobin Oxyhemoglobin Sodium 131 L Potassium Chloride 96.2 L Carbon Dioxide BUN 36 H Creatinine 0.5 L Glucose 130 H POC Glucose 117 H Lactic Acid Calcium Phosphorus Magnesium AST ALT Alkaline Phosphatase Lactate Dehydrogenase Troponin T C-Reactive Protein NT-Pro-B Natriuret Pep Total Protein Albumin LDL Cholesterol Direct Vitamin B12 Fluid Glucose Fluid Total Protein Vancomycin Trough Crossmatch 12/20/21 12/20/21 12/20/21 05:20 11:51 17:30 WBC RBC Hgb Hct MCV MCH MCHC RDW Plt Count Seg Neuts % (Manual) Lymphocytes % (Manual) Seg Neutrophils # Man Lymphocytes # (Manual) Monocytes # (Manual) PT INR D-Dimer ABG pH ABG pO2 ABG HCO3 ABG O2 Saturation ABG Base Excess ABG Hemoglobin Oxyhemoglobin Sodium Potassium Chloride Carbon Dioxide BUN Creatinine Glucose POC Glucose 126 H 119 H 127 H Lactic Acid Calcium Phosphorus Magnesium AST ALT Alkaline Phosphatase Lactate Dehydrogenase Troponin T C-Reactive Protein NT-Pro-B Natriuret Pep Total Protein Albumin LDL Cholesterol Direct Vitamin B12 Fluid Glucose Fluid Total Protein Vancomycin Trough Crossmatch 12/21/21 12/21/21 12/21/21 00:45 04:21 04:21 WBC RBC 3.47 L Hgb 9.4 L Hct 29.2 L MCV MCH 27 L MCHC RDW 18.1 H Plt Count Seg Neuts % (Manual) Lymphocytes % (Manual) Seg Neutrophils # Man Lymphocytes # (Manual) Monocytes # (Manual) PT INR D-Dimer ABG pH ABG pO2 ABG HCO3 ABG O2 Saturation ABG Base Excess ABG Hemoglobin Oxyhemoglobin Sodium 134 L Potassium Chloride Carbon Dioxide BUN 35 H Creatinine 0.5 L Glucose 122 H POC Glucose 125 H Lactic Acid Calcium 8.2 L Phosphorus Magnesium AST ALT Alkaline Phosphatase Lactate Dehydrogenase Troponin T C-Reactive Protein NT-Pro-B Natriuret Pep Total Protein Albumin LDL Cholesterol Direct Vitamin B12 Fluid Glucose Fluid Total Protein Vancomycin Trough Crossmatch 12/21/21 12/21/21 12/21/21 05:38 11:29 16:16 WBC RBC Hgb Hct MCV MCH MCHC RDW Plt Count Seg Neuts % (Manual) Lymphocytes % (Manual) Seg Neutrophils # Man Lymphocytes # (Manual) Monocytes # (Manual) PT INR D-Dimer ABG pH ABG pO2 ABG HCO3 ABG O2 Saturation ABG Base Excess ABG Hemoglobin Oxyhemoglobin Sodium Potassium Chloride Carbon Dioxide BUN Creatinine Glucose POC Glucose 127 H 121 H 113 H Lactic Acid Calcium Phosphorus Magnesium AST ALT Alkaline Phosphatase Lactate Dehydrogenase Troponin T C-Reactive Protein NT-Pro-B Natriuret Pep Total Protein Albumin LDL Cholesterol Direct Vitamin B12 Fluid Glucose Fluid Total Protein Vancomycin Trough Crossmatch 12/22/21 12/22/21 12/23/21 04:58 04:58 06:40 WBC 11.5 H RBC 3.43 L Hgb 9.8 L Hct 28.7 L MCV MCH MCHC RDW 18.5 H 17.9 H Plt Count Seg Neuts % (Manual) Lymphocytes % (Manual) Seg Neutrophils # Man Lymphocytes # (Manual) Monocytes # (Manual) PT INR D-Dimer ABG pH ABG pO2 ABG HCO3 ABG O2 Saturation ABG Base Excess ABG Hemoglobin Oxyhemoglobin Sodium 130 L Potassium Chloride 97.8 L Carbon Dioxide BUN 31 H Creatinine 0.5 L Glucose 122 H POC Glucose Lactic Acid Calcium 7.9 L Phosphorus Magnesium AST ALT Alkaline Phosphatase Lactate Dehydrogenase Troponin T C-Reactive Protein NT-Pro-B Natriuret Pep Total Protein Albumin LDL Cholesterol Direct Vitamin B12 Fluid Glucose Fluid Total Protein Vancomycin Trough Crossmatch 12/23/21 12/23/21 12/24/21 06:40 23:25 04:24 WBC 11.7 H RBC Hgb 9.8 L Hct MCV MCH 26 L MCHC RDW 18.1 H Plt Count Seg Neuts % (Manual) Lymphocytes % (Manual) Seg Neutrophils # Man Lymphocytes # (Manual) Monocytes # (Manual) PT INR D-Dimer ABG pH ABG pO2 ABG HCO3 ABG O2 Saturation ABG Base Excess ABG Hemoglobin Oxyhemoglobin Sodium 136 L Potassium Chloride Carbon Dioxide BUN 27 H Creatinine 0.4 L Glucose 107 H POC Glucose 110 H Lactic Acid Calcium 8.1 L Phosphorus Magnesium AST ALT Alkaline Phosphatase Lactate Dehydrogenase Troponin T C-Reactive Protein NT-Pro-B Natriuret Pep Total Protein Albumin LDL Cholesterol Direct Vitamin B12 Fluid Glucose Fluid Total Protein Vancomycin Trough Crossmatch 12/24/21 12/24/21 12/24/21 04:24 11:08 15:45 WBC RBC Hgb Hct MCV MCH MCHC RDW Plt Count Seg Neuts % (Manual) Lymphocytes % (Manual) Seg Neutrophils # Man Lymphocytes # (Manual) Monocytes # (Manual) PT INR D-Dimer ABG pH ABG pO2 ABG HCO3 ABG O2 Saturation ABG Base Excess ABG Hemoglobin Oxyhemoglobin Sodium 132 L Potassium Chloride Carbon Dioxide BUN 27 H Creatinine 0.3 L Glucose 108 H POC Glucose 116 H 107 H Lactic Acid Calcium Phosphorus Magnesium AST ALT Alkaline Phosphatase Lactate Dehydrogenase Troponin T C-Reactive Protein NT-Pro-B Natriuret Pep Total Protein Albumin LDL Cholesterol Direct Vitamin B12 Fluid Glucose Fluid Total Protein Vancomycin Trough Crossmatch 12/24/21 12/25/21 12/25/21 23:43 05:29 11:48 WBC RBC Hgb Hct MCV MCH MCHC RDW Plt Count Seg Neuts % (Manual) Lymphocytes % (Manual) Seg Neutrophils # Man Lymphocytes # (Manual) Monocytes # (Manual) PT INR D-Dimer ABG pH ABG pO2 ABG HCO3 ABG O2 Saturation ABG Base Excess ABG Hemoglobin Oxyhemoglobin Sodium Potassium Chloride Carbon Dioxide BUN Creatinine Glucose POC Glucose 123 H 107 H 119 H Lactic Acid Calcium Phosphorus Magnesium AST ALT Alkaline Phosphatase Lactate Dehydrogenase Troponin T C-Reactive Protein NT-Pro-B Natriuret Pep Total Protein Albumin LDL Cholesterol Direct Vitamin B12 Fluid Glucose Fluid Total Protein Vancomycin Trough Crossmatch 12/26/21 12/26/21 12/26/21 00:06 05:56 07:51 WBC 11.4 H RBC 3.40 L Hgb 9.3 L Hct 28.3 L MCV MCH 27 L MCHC RDW 18.2 H Plt Count Seg Neuts % (Manual) Lymphocytes % (Manual) Seg Neutrophils # Man Lymphocytes # (Manual) Monocytes # (Manual) PT INR D-Dimer ABG pH ABG pO2 ABG HCO3 ABG O2 Saturation ABG Base Excess ABG Hemoglobin Oxyhemoglobin Sodium Potassium Chloride Carbon Dioxide BUN Creatinine Glucose POC Glucose 133 H 107 H Lactic Acid Calcium Phosphorus Magnesium AST ALT Alkaline Phosphatase Lactate Dehydrogenase Troponin T C-Reactive Protein NT-Pro-B Natriuret Pep Total Protein Albumin LDL Cholesterol Direct Vitamin B12 Fluid Glucose Fluid Total Protein Vancomycin Trough Crossmatch 12/26/21 12/26/21 12/26/21 07:51 11:43 17:06 WBC RBC Hgb Hct MCV MCH MCHC RDW Plt Count Seg Neuts % (Manual) Lymphocytes % (Manual) Seg Neutrophils # Man Lymphocytes # (Manual) Monocytes # (Manual) PT INR D-Dimer ABG pH ABG pO2 ABG HCO3 ABG O2 Saturation ABG Base Excess ABG Hemoglobin Oxyhemoglobin Sodium 136 L Potassium Chloride Carbon Dioxide BUN 25 H Creatinine 0.3 L Glucose 131 H POC Glucose 119 H 128 H Lactic Acid Calcium Phosphorus Magnesium AST ALT Alkaline Phosphatase Lactate Dehydrogenase Troponin T C-Reactive Protein NT-Pro-B Natriuret Pep Total Protein Albumin LDL Cholesterol Direct Vitamin B12 Fluid Glucose Fluid Total Protein Vancomycin Trough Crossmatch 12/28/21 12/28/21 12/29/21 09:05 09:05 04:40 WBC RBC 3.19 L Hgb 8.9 L Hct 26.4 L MCV MCH 27 L MCHC RDW 18.4 H 17.9 H Plt Count Seg Neuts % (Manual) Lymphocytes % (Manual) Seg Neutrophils # Man Lymphocytes # (Manual) Monocytes # (Manual) PT INR D-Dimer ABG pH ABG pO2 ABG HCO3 ABG O2 Saturation ABG Base Excess ABG Hemoglobin Oxyhemoglobin Sodium 135 L Potassium Chloride 97.8 L Carbon Dioxide BUN 18 H Creatinine 0.3 L Glucose POC Glucose Lactic Acid Calcium Phosphorus Magnesium AST ALT Alkaline Phosphatase Lactate Dehydrogenase Troponin T C-Reactive Protein NT-Pro-B Natriuret Pep Total Protein Albumin LDL Cholesterol Direct Vitamin B12 Fluid Glucose Fluid Total Protein Vancomycin Trough Crossmatch 12/29/21 12/29/21 12/30/21 04:40 12:47 04:05 WBC RBC 3.29 L Hgb 8.7 L Hct 27.6 L MCV MCH 27 L MCHC RDW 17.6 H Plt Count Seg Neuts % (Manual) Lymphocytes % (Manual) Seg Neutrophils # Man Lymphocytes # (Manual) Monocytes # (Manual) PT INR D-Dimer ABG pH ABG pO2 ABG HCO3 ABG O2 Saturation ABG Base Excess ABG Hemoglobin Oxyhemoglobin Sodium 136 L Potassium Chloride Carbon Dioxide BUN Creatinine 0.3 L Glucose POC Glucose 67 L Lactic Acid Calcium 8.3 L Phosphorus Magnesium AST ALT Alkaline Phosphatase Lactate Dehydrogenase Troponin T C-Reactive Protein NT-Pro-B Natriuret Pep Total Protein Albumin LDL Cholesterol Direct Vitamin B12 Fluid Glucose Fluid Total Protein Vancomycin Trough Crossmatch 12/30/21 12/31/21 12/31/21 04:05 00:07 04:00 WBC RBC 3.05 L Hgb 8.5 L Hct 25.5 L MCV MCH MCHC RDW 18.2 H Plt Count Seg Neuts % (Manual) Lymphocytes % (Manual) Seg Neutrophils # Man Lymphocytes # (Manual) Monocytes # (Manual) PT INR D-Dimer ABG pH ABG pO2 ABG HCO3 ABG O2 Saturation ABG Base Excess ABG Hemoglobin Oxyhemoglobin Sodium 136 L Potassium 3.5 L Chloride Carbon Dioxide BUN Creatinine 0.4 L Glucose POC Glucose 139 H Lactic Acid Calcium Phosphorus Magnesium 1.50 L AST ALT Alkaline Phosphatase Lactate Dehydrogenase Troponin T C-Reactive Protein NT-Pro-B Natriuret Pep Total Protein Albumin LDL Cholesterol Direct Vitamin B12 Fluid Glucose Fluid Total Protein Vancomycin Trough Crossmatch 12/31/21 12/31/21 12/31/21 04:00 04:52 11:23 WBC RBC Hgb Hct MCV MCH MCHC RDW Plt Count Seg Neuts % (Manual) Lymphocytes % (Manual) Seg Neutrophils # Man Lymphocytes # (Manual) Monocytes # (Manual) PT INR D-Dimer ABG pH ABG pO2 ABG HCO3 ABG O2 Saturation ABG Base Excess ABG Hemoglobin Oxyhemoglobin Sodium Potassium Chloride Carbon Dioxide BUN 19 H Creatinine 0.4 L Glucose 116 H POC Glucose 121 H 116 H Lactic Acid Calcium Phosphorus Magnesium AST ALT Alkaline Phosphatase Lactate Dehydrogenase Troponin T C-Reactive Protein NT-Pro-B Natriuret Pep Total Protein Albumin LDL Cholesterol Direct Vitamin B12 Fluid Glucose Fluid Total Protein Vancomycin Trough Crossmatch 12/31/21 01/01/22 01/01/22 17:42 04:31 04:31 WBC RBC 2.83 L Hgb 7.7 L Hct 23.2 L MCV MCH 27 L MCHC RDW 18.3 H Plt Count Seg Neuts % (Manual) Lymphocytes % (Manual) Seg Neutrophils # Man Lymphocytes # (Manual) Monocytes # (Manual) PT INR D-Dimer ABG pH ABG pO2 ABG HCO3 ABG O2 Saturation ABG Base Excess ABG Hemoglobin Oxyhemoglobin Sodium 135 L Potassium Chloride 97.7 L Carbon Dioxide BUN 21 H Creatinine 0.5 L Glucose 127 H POC Glucose 107 H Lactic Acid Calcium 8.0 L Phosphorus Magnesium AST ALT Alkaline Phosphatase Lactate Dehydrogenase Troponin T C-Reactive Protein NT-Pro-B Natriuret Pep Total Protein Albumin LDL Cholesterol Direct Vitamin B12 Fluid Glucose Fluid Total Protein Vancomycin Trough Crossmatch 01/01/22 01/01/22 01/01/22 05:24 11:25 18:11 WBC RBC Hgb Hct MCV MCH MCHC RDW Plt Count Seg Neuts % (Manual) Lymphocytes % (Manual) Seg Neutrophils # Man Lymphocytes # (Manual) Monocytes # (Manual) PT INR D-Dimer ABG pH ABG pO2 ABG HCO3 ABG O2 Saturation ABG Base Excess ABG Hemoglobin Oxyhemoglobin Sodium Potassium Chloride Carbon Dioxide BUN Creatinine Glucose POC Glucose 124 H 140 H 144 H Lactic Acid Calcium Phosphorus Magnesium AST ALT Alkaline Phosphatase Lactate Dehydrogenase Troponin T C-Reactive Protein NT-Pro-B Natriuret Pep Total Protein Albumin LDL Cholesterol Direct Vitamin B12 Fluid Glucose Fluid Total Protein Vancomycin Trough Crossmatch 01/01/22 01/02/22 01/02/22 23:26 04:01 04:01 WBC RBC 2.57 L Hgb 7.1 L Hct 21.5 L MCV MCH MCHC RDW 18.1 H Plt Count Seg Neuts % (Manual) Lymphocytes % (Manual) Seg Neutrophils # Man Lymphocytes # (Manual) Monocytes # (Manual) PT INR D-Dimer ABG pH ABG pO2 ABG HCO3 ABG O2 Saturation ABG Base Excess ABG Hemoglobin Oxyhemoglobin Sodium 131 L Potassium 3.5 L Chloride 94.8 L Carbon Dioxide BUN 27 H Creatinine Glucose 121 H POC Glucose 121 H Lactic Acid Calcium Phosphorus Magnesium AST ALT Alkaline Phosphatase Lactate Dehydrogenase Troponin T C-Reactive Protein NT-Pro-B Natriuret Pep Total Protein Albumin LDL Cholesterol Direct Vitamin B12 Fluid Glucose Fluid Total Protein Vancomycin Trough Crossmatch 01/02/22 01/02/22 01/02/22 05:30 11:10 16:08 WBC RBC Hgb Hct MCV MCH MCHC RDW Plt Count Seg Neuts % (Manual) Lymphocytes % (Manual) Seg Neutrophils # Man Lymphocytes # (Manual) Monocytes # (Manual) PT INR D-Dimer ABG pH ABG pO2 ABG HCO3 ABG O2 Saturation ABG Base Excess ABG Hemoglobin Oxyhemoglobin Sodium Potassium Chloride Carbon Dioxide BUN Creatinine Glucose POC Glucose 124 H 117 H 130 H Lactic Acid Calcium Phosphorus Magnesium AST ALT Alkaline Phosphatase Lactate Dehydrogenase Troponin T C-Reactive Protein NT-Pro-B Natriuret Pep Total Protein Albumin LDL Cholesterol Direct Vitamin B12 Fluid Glucose Fluid Total Protein Vancomycin Trough Crossmatch 01/02/22 01/02/22 01/03/22 17:30 23:26 04:53 WBC RBC 2.82 L Hgb 7.7 L Hct 23.4 L MCV MCH 27 L MCHC RDW 18.0 H Plt Count Seg Neuts % (Manual) Lymphocytes % (Manual) Seg Neutrophils # Man Lymphocytes # (Manual) Monocytes # (Manual) PT INR D-Dimer ABG pH ABG pO2 ABG HCO3 ABG O2 Saturation ABG Base Excess ABG Hemoglobin Oxyhemoglobin Sodium Potassium Chloride Carbon Dioxide BUN Creatinine Glucose POC Glucose 114 H Lactic Acid Calcium Phosphorus Magnesium AST ALT Alkaline Phosphatase Lactate Dehydrogenase Troponin T C-Reactive Protein NT-Pro-B Natriuret Pep Total Protein Albumin LDL Cholesterol Direct Vitamin B12 Fluid Glucose Fluid Total Protein Vancomycin Trough 22.8 H Crossmatch 01/03/22 01/03/22 01/03/22 04:53 06:23 17:35 WBC RBC Hgb Hct MCV MCH MCHC RDW Plt Count Seg Neuts % (Manual) Lymphocytes % (Manual) Seg Neutrophils # Man Lymphocytes # (Manual) Monocytes # (Manual) PT INR D-Dimer ABG pH ABG pO2 ABG HCO3 ABG O2 Saturation ABG Base Excess ABG Hemoglobin Oxyhemoglobin Sodium 133 L Potassium Chloride 96.2 L Carbon Dioxide BUN 30 H Creatinine Glucose 107 H POC Glucose 122 H 107 H Lactic Acid Calcium Phosphorus Magnesium AST ALT Alkaline Phosphatase Lactate Dehydrogenase Troponin T C-Reactive Protein NT-Pro-B Natriuret Pep Total Protein Albumin LDL Cholesterol Direct Vitamin B12 Fluid Glucose Fluid Total Protein Vancomycin Trough Crossmatch 01/04/22 01/04/22 01/04/22 04:00 12:32 16:45 WBC RBC Hgb Hct MCV MCH MCHC RDW Plt Count Seg Neuts % (Manual) Lymphocytes % (Manual) Seg Neutrophils # Man Lymphocytes # (Manual) Monocytes # (Manual) PT INR D-Dimer ABG pH ABG pO2 ABG HCO3 ABG O2 Saturation ABG Base Excess ABG Hemoglobin Oxyhemoglobin Sodium 132 L Potassium Chloride 92.8 L Carbon Dioxide BUN 30 H Creatinine Glucose 115 H POC Glucose 111 H 111 H Lactic Acid Calcium Phosphorus Magnesium 1.60 L AST ALT Alkaline Phosphatase Lactate Dehydrogenase Troponin T C-Reactive Protein NT-Pro-B Natriuret Pep Total Protein Albumin LDL Cholesterol Direct Vitamin B12 Fluid Glucose Fluid Total Protein Vancomycin Trough Crossmatch 01/05/22 01/05/22 01/05/22 04:30 04:30 17:04 WBC RBC 3.11 L Hgb 8.4 L Hct 25.5 L MCV MCH 27 L MCHC RDW 17.6 H Plt Count Seg Neuts % (Manual) Lymphocytes % (Manual) Seg Neutrophils # Man Lymphocytes # (Manual) Monocytes # (Manual) PT INR D-Dimer ABG pH ABG pO2 ABG HCO3 ABG O2 Saturation ABG Base Excess ABG Hemoglobin Oxyhemoglobin Sodium 135 L Potassium Chloride 93.6 L Carbon Dioxide BUN 29 H Creatinine Glucose POC Glucose 67 L Lactic Acid Calcium Phosphorus Magnesium AST ALT Alkaline Phosphatase Lactate Dehydrogenase Troponin T C-Reactive Protein NT-Pro-B Natriuret Pep Total Protein Albumin LDL Cholesterol Direct Vitamin B12 Fluid Glucose Fluid Total Protein Vancomycin Trough Crossmatch 01/05/22 01/06/22 01/06/22 23:27 04:06 04:06 WBC RBC 2.89 L Hgb 7.7 L Hct 23.8 L MCV MCH 27 L MCHC RDW 18.0 H Plt Count Seg Neuts % (Manual) Lymphocytes % (Manual) Seg Neutrophils # Man Lymphocytes # (Manual) Monocytes # (Manual) PT 16.9 H INR 1.23 H D-Dimer ABG pH ABG pO2 ABG HCO3 ABG O2 Saturation ABG Base Excess ABG Hemoglobin Oxyhemoglobin Sodium Potassium Chloride Carbon Dioxide BUN Creatinine Glucose POC Glucose 110 H Lactic Acid Calcium Phosphorus Magnesium AST ALT Alkaline Phosphatase Lactate Dehydrogenase Troponin T C-Reactive Protein NT-Pro-B Natriuret Pep Total Protein Albumin LDL Cholesterol Direct Vitamin B12 Fluid Glucose Fluid Total Protein Vancomycin Trough Crossmatch 01/06/22 01/06/22 01/06/22 04:06 13:40 23:41 WBC RBC Hgb Hct MCV MCH MCHC RDW Plt Count Seg Neuts % (Manual) Lymphocytes % (Manual) Seg Neutrophils # Man Lymphocytes # (Manual) Monocytes # (Manual) PT INR D-Dimer ABG pH ABG pO2 ABG HCO3 ABG O2 Saturation ABG Base Excess ABG Hemoglobin Oxyhemoglobin Sodium 132 L Potassium Chloride 92.3 L Carbon Dioxide BUN 26 H Creatinine Glucose 111 H POC Glucose 120 H Lactic Acid Calcium Phosphorus Magnesium AST ALT Alkaline Phosphatase Lactate Dehydrogenase Troponin T C-Reactive Protein NT-Pro-B Natriuret Pep Total Protein Albumin LDL Cholesterol Direct Vitamin B12 Fluid Glucose 96 H Fluid Total Protein < 3.0 L Vancomycin Trough Crossmatch 01/07/22 01/07/22 01/07/22 05:20 11:30 17:00 WBC RBC Hgb Hct MCV MCH MCHC RDW Plt Count Seg Neuts % (Manual) Lymphocytes % (Manual) Seg Neutrophils # Man Lymphocytes # (Manual) Monocytes # (Manual) PT INR D-Dimer ABG pH ABG pO2 ABG HCO3 ABG O2 Saturation ABG Base Excess ABG Hemoglobin Oxyhemoglobin Sodium Potassium Chloride Carbon Dioxide BUN Creatinine Glucose POC Glucose 111 H 113 H 121 H Lactic Acid Calcium Phosphorus Magnesium AST ALT Alkaline Phosphatase Lactate Dehydrogenase Troponin T C-Reactive Protein NT-Pro-B Natriuret Pep Total Protein Albumin LDL Cholesterol Direct Vitamin B12 Fluid Glucose Fluid Total Protein Vancomycin Trough Crossmatch 01/07/22 01/08/22 01/08/22 23:41 11:26 16:23 WBC RBC Hgb Hct MCV MCH MCHC RDW Plt Count Seg Neuts % (Manual) Lymphocytes % (Manual) Seg Neutrophils # Man Lymphocytes # (Manual) Monocytes # (Manual) PT INR D-Dimer ABG pH ABG pO2 ABG HCO3 ABG O2 Saturation ABG Base Excess ABG Hemoglobin Oxyhemoglobin Sodium Potassium Chloride Carbon Dioxide BUN Creatinine Glucose POC Glucose 110 H 129 H 118 H Lactic Acid Calcium Phosphorus Magnesium AST ALT Alkaline Phosphatase Lactate Dehydrogenase Troponin T C-Reactive Protein NT-Pro-B Natriuret Pep Total Protein Albumin LDL Cholesterol Direct Vitamin B12 Fluid Glucose Fluid Total Protein Vancomycin Trough Crossmatch 01/09/22 01/10/22 01/10/22 18:13 00:27 04:00 WBC RBC Hgb Hct MCV MCH MCHC RDW Plt Count Seg Neuts % (Manual) Lymphocytes % (Manual) Seg Neutrophils # Man Lymphocytes # (Manual) Monocytes # (Manual) PT INR D-Dimer ABG pH ABG pO2 ABG HCO3 ABG O2 Saturation ABG Base Excess ABG Hemoglobin Oxyhemoglobin Sodium 133 L Potassium Chloride 92.6 L Carbon Dioxide 31 H BUN 29 H Creatinine 0.5 L Glucose 115 H POC Glucose 118 H 111 H Lactic Acid Calcium Phosphorus Magnesium AST ALT Alkaline Phosphatase Lactate Dehydrogenase Troponin T C-Reactive Protein NT-Pro-B Natriuret Pep Total Protein Albumin LDL Cholesterol Direct Vitamin B12 Fluid Glucose Fluid Total Protein Vancomycin Trough Crossmatch 01/10/22 01/11/22 01/11/22 05:47 05:10 11:14 WBC RBC Hgb Hct MCV MCH MCHC RDW Plt Count Seg Neuts % (Manual) Lymphocytes % (Manual) Seg Neutrophils # Man Lymphocytes # (Manual) Monocytes # (Manual) PT INR D-Dimer ABG pH ABG pO2 ABG HCO3 ABG O2 Saturation ABG Base Excess ABG Hemoglobin Oxyhemoglobin Sodium Potassium Chloride Carbon Dioxide BUN Creatinine Glucose POC Glucose 106 H 118 H 136 H Lactic Acid Calcium Phosphorus Magnesium AST ALT Alkaline Phosphatase Lactate Dehydrogenase Troponin T C-Reactive Protein NT-Pro-B Natriuret Pep Total Protein Albumin LDL Cholesterol Direct Vitamin B12 Fluid Glucose Fluid Total Protein Vancomycin Trough Crossmatch Allied health notes reviewed: RT
[2022-01-11] MEDS: MELATONIN 5 MG TAB PO SCH (21:07)
[2022-01-11] MEDS: traZODone 50 MG TAB PO SCH (21:14)
[2022-01-11] MEDS: PRAVASTATIN 20 MG TAB FEEDTUBE SCH (21:17)
[2022-01-12] MEDS: LEVOTHYROXINE 125 MCG TAB FEEDTUBE SCH (05:31)
[2022-01-12] MEDS: SUCRALFATE 1 GM/10 ML ORAL LIQD FEEDTUBE SCH ×4 (05:31→23:09)
[2022-01-12] MEDS: HYDROcodone/ACETAMINOPHEN 10-325MG TAB FEEDTUBE SCH ×3 (08:28→20:58)
[2022-01-12] MEDS: MIDODRINE 5 MG TAB FEEDTUBE SCH ×3 (08:28→16:44)
--- NOTE | 2022-01-12 09:07 | Progress Note ---
Assessment and Plan Assessment and plan: History Interval history: This is an 82-year-old female with DM, HTN , CHB s/p PPM, CAD s/p PCI and arthritis who presented to the emergency department on 11/04 for shortness of breath ongoing for the past 3 days, cough and according to family a fever of 102.2. Upon arrival of EMS patient was found to be tachypneic and hypoxic with SPO2 of 76% on room air which later improved to 88% on nonrebreather. Work-up in the emergency department included a CXR which showed bilateral interstitial pulmonary edema with bilateral pleural effusions and bibasilar opacities, leukocytosis and anemia with a hemoglobin of 6.1. Patient was admitted to the hospitalist service with acute anemia, acute hypoxic respiratory failure, bilateral pneumonia and COVID-19 PUI with consults to pulmonology, infectious disease and later cardiology. Patient was eventually intubated in the emergency department on 11/06. Hospital Course to date: 11/04/2021: Empiric therapy with iv levaquin/vancomycin. COVID PCR pending. Will consult ID. PCCM consulted, will follow recs. Hypotensive this AM, ordered bolus and fluids at 150 cc/hr. May require pressor support if bp does not improve. 11/05/2021: GBS on bcx +, currently on rocephin IV. Currently on bipap due to respiratory distress overnight. Worsening BL opacities on CXR. May be volume overload vs pneumonia. Unfortunately bp too low for lasix at this point. WIll continue levophed and bipap. Once able to tolerate, may do trial of albumin/lasix. Call attempt made to Niraj, no response. Will try again tomorrow to update. 11/06/2021: Decompensated overnight requiring intubation. CXR shows worsening interstitial infiltrates. Currenlty on dopamine, levophed, vasopressin. PICC line ordered. Advised RN to place gamble for I/O monitoring. Would benefit from diuresis but very volume overloaded. Prognosis guarded 11/08: Off sedation this am, remains unresponsive only grimace to pain. Hold all sedatives agents for now, patient is off pressors this am. Hypernatremia from today's lab- D5W X1bag, and low K repleted, repeat lab in the am. Severe constipation also noted from KUB, BR added. 11/09: Sudden SPO2 drop in the 60s this am. Patient was manually bagged and deep suctioned. Patient is currently stable on the vent, repeat CXR with no significant change. D/w CCM Mucomyst and brochodilator added. Patient mentation is unchanged, continue to hold off on sedative agents. Neurology consulted. 11/10: Acute DVT noted on bilateral lower extremity Doppler ultrasound therefore she was started on Lovenox treatment dose. Failed SBT. Hypernatremia and hyperchloremia noted, free water flush adjusted. 11/11: Patient noted to be febrile with increasing of the cytosis, UA/BC sent and CXR ordered. ID escalated antibiotics to cefepime. CXR demonstrated mucous plug, bedside bronchoscopy was performed and O ETT was changed over bougie from 6 cm to 7.5. Patient was noted to have a pneumothorax postprocedure and chest tube was placed. Family updated by [facility]. Free water flush increased and will add Jaswant supplementation. 11/12: Patient not noted to follow commands, hypernatremia worsen/persist, increasing free water flush, potassium and magnesium and phosphorus repleted. Hemoglobin noted to be 7./24.5 from 7.03/12 yesterday. We will continue to trend and monitor. Vent changes per [facility]. Repeat CXR showed no residual pneumothorax. Consider waterseal tomorrow. Given persistent leukocytosis antibiotics escalated to cefepime per ID. 11/13: Remains on cefepime and vancomycin, vent changes per [facility]. Anemia noted and given 1 unit PRBC. And beta-charleen held in setting of Levophed drip infusing. Remains on fentanyl drip. 11/14: Patient put on CPAP trial by [facility], will continue chest tube until after extubation. Will rest on assist control. CT brain was cancelled by manager trading and reordered. 11/15: Patient removed chest tube overnight. Will obtain cxr. remains on low dose levo. CTH completed with no acute findings. RT to place on CPAP. 11/16: Hypernatremia/hyperchloremia noted on the increase of day water flushes. Anemia noted and ordered PRBC. asked RT to place on cpap but not done yet 11/17: Patient remains on the vent, awake and following commands. H&H stable s/p 2units PRBCs. GI on consult, no intervention at this time. Will continue protonix gtt and serial H&H Q6hrs. Keep patient NPO for now, D5w added for hypernatremia and NPO status. Plan for IVC filter placement today by Vascular. 11/18: Patient is s/p IVC filter. H&H continue to trend down, hbg 6.1 this am, 1 unit of PRBCs ordered. Plan for possible EGD today by GI. Keep patient NPO, continue PPI drip and serial H&H Q6hrs. Electrolytes repleted, repeat lab in the am 11/19: S/p EGD- larger duodenal ulcer noted, see operative note. GI recommendations noted also noted. H&H stable this am. Keep patient on protonix gtt for now. Will keep patient NPO, continue IVF and serial H&H for now. Electrolytes repleted, repeat labs in the am 11/20: Very agitated and restless this am, fentanyl gtt resumed. Patient remains on protonix gtt, H&H remains stable. Will switch protonix gtt to IV BID, continue carafate and okay to resume meds at this time. Will F/u with GI to see if TF can be resumed. Gamble was reinserted overnight for retention. Electrolytes repleted, repeat in the am. Plan for possible PST today for possible extubation per CCM. 11/21: Patient is now on seroquel and patient's home buspar resumed. Patient more calm this morning, fentanyl gtt is off. H&H remains stable and patient is tolerating TF. Patient had a runs of Vtach/PVCs this am, BB added per Cardio. Continue daily PS and wean trial for possible extubation. 11/22: Back on fentanyl gtt overnight , RASS o to -1, following commands. Patient failed PST this am due to increased work of breathing and low SPO2, ABG pending. Patient is also with worsen pitting edema, lasix is still on hold. Will discuss with cardio and CCM to possibly resume lasix. 11/23: MARIA DEL CARMEN overnight. Patient failed PST again this am. Per CCM plan for possible trach and PEG, hold off on IV lasix for now. General surgery consulted and family is aware of possible Trach and PEG. 11/24: Trach/PEG pending this week, continue SBT/SAT as tolerated. No acute events reported overnight. 11/25: Patient was n.p.o. overnight and will remain n.p.o. tonight for trach/PEG tomorrow morning. She failed to support trial again. KUB obtained due to distended belly. 11/26: Patient scheduled for tracheostomy and PEG tube placement today, has been n.p.o. since midnight. No acute events reported overnight. [facility] ordered simethicone scheduled. 11/27: No acute events reported overnight, patient received trach/PEG yesterday. Has been on feedings since last night. Still awaiting LTAC placement. 11/28: Patient magnesium repleted, repeat a.m. labs, SBT 11/29: Patient complains of chest pain but ECG obtained which showed no acute findings, ordered troponin. Patient failed CPAP yesterday and was trialed again today. levophed was restarted but will aggressively wean 11/30: Patient failed SBT. Continue supportive care. Started gabapentin today 12/01: MARIA DEL CARMEN overnight. Continue daily PST. Case management to arrange possible placement 12/02: Report of dark stools overnight, patient is hemodynamically stable. H&H stable, patient is on PPI. Will continue to trend H&H. Continue daily PST as tolerated. Awaiting LTAC vs SNF placement. 12/03: Hypotensive overnight, requiring low dose pressors. S/p X3 days of gentle diurese. Will continue to monitor, wean off pressors as tolerated for MAP of 65. Patient Failed PST yesterday, case management to follow up with insurance for possible LTAC placement. Continue daily PST as tolerated. PT eval and treat ordered. 12/04: Increased agitation and anxiety overnight, remains on buspar and seroquel, trazadone added to promote rest. Patient is now working with PT, keep patient engage and awake during the day so she can rest at night. No BM for over 5 days, BR was adjusted. Patient did not tolerate PST again yesterday, continue daily PST as tolerated. Continue to titrate pressor for MAP above 65. Pending possible LTAC placement, case management to arrange. 12/05: Still not getting much rest overnight, will add melatonin for sleep. Continue to engage patient during the day and promote rest at night. TF was held due to concern for possible bleeding, H&H remains stable and stools normal this am. Resume TF and continue PPI and carafate. Remains on low dose levophed, titrate as tolerated. Continue daily PST. Possible LTAC placement, awaiting approval. 12/06: MARIA DEL CARMEN overnight. Patient rested overnight. Continue supportive measures. Daily PST as tolerated. Awaiting possible LTAC placement 12/07: MARIA DEL CARMEN overnight. Plan for Tpiece trial today. Continue current supportive measures. Possible LTAC placement 12/08: Patient placed on pressure support trial again today, started on Xanax, no acute events reported overnight. Awaiting insurance approval for LTAC. 12/09: Levophed discontinued, LTAC transfer denied, started on midodrine and Lasix, ultrasound chest pending, started on Xanax 0.[address] De León updated family at bedside today. Started on Dilaudid every 3 hours as needed. 12/10: Patient placed on CPAP trial this morning, no acute events reported overnight. Will order ultrasound-guided thoracentesis. 12/11: Patient had a thoracentesis today, will decrease Xanax dosage and continue midodrine and diuresing. Patient failed CPAP today. 12/12: Patient not tolerate CPAP trials today, no acute events reported overnight 12/13: No acute events overnight. continue PSV trials as tolerated. Daughter updated at bedside 12/14: Patient noted to be anemic today, ordered gastric occult. Patient seems to be oversedated therefore Xanax changed to as needed and fentanyl patch discontinued. We will continue to monitor hyponatremia. 12/15: MARIA DEL CARMEN overnight. s/p 1unit of PRBCs, H&H stable this am, no signs of any active bleeding. Continue daily PST as tolerated. Awaiting placement. 12/16: Hypertensive this am, Midodrine decreased. Continue daily PST. MARIA DEL CARMEN overnight 12/17: Patient Hgb dropped to 6 this am, no s/s of any active bleeding, VSS. Patient received 1unit of PRBC, will continue to trend H&H. Patient was pancultured and back on IV Abx due to persistent fevers yesterday. ID is also back on the case. Continue IV Abx per ID and f/u on cultures data for sensitivity. Patient also failed PST yesterday, continue daily PST as tolerated. Electrolytes repleted, repeat labs in the am. 12/18: Patient blood cultures is growing GPC 4 out 4 bottles. PICC line D/Rivas, patient is already on IV Abx-cefepine and Vanc and ID is following. Patient remains hemodynamically stable. Daily PST as tolerated adn PRN Benzo for anxiety. 12/19: MARIA DEL CARMEN overnight. Culture data noted, continue IV Abx per ID. Orders placed for repeat Bculture. Gamble D/C overnight, patient is voiding. Check bladder scan as needed for retention. Patient failed PST again today. Continue daily PST as tolerated. 12/20: Fevers improved, Cultures +MRSA, on Vanco per ID. Repeat 2D Echo to r/o endocarditis. Patient continue to fail PST, PEEP increased to 8 today. Continue pulmonary hygiene and vent wean per CCM. Sodium tab added for hyponatremia. 12/22: Patient on pressure support trial for approximately 4 hours today, midodrine dosage increased due to hypotension. Lasix discontinued. 12/23: Started on a.m. Seroquel dose, midodrine increased to 10 mg 3 times daily, 500 mL normal saline bolus. 12/24: Seroquel dose changed (25 every morning, 75 nightly). updated at bedside by Dr. De León. CPAP trials as tolerated. Continue vancomycin. Awaiting placement. 12/25: Continue CPAP as tolerated, added gasx for distention. Continue supportive care 12/26: Patient failed PSV this AM. no acute events overnight. 12/27: GI re-consulted due to abdominal distention. No acute events reported overnight. CPAP trials as tolerated. Dr. Mckenna will get a KUB to rule out po ssible obstruction. 12/28: KUB shows no acute process, CXR shows improvement. CPAP trials as tolerat ed. 12/29: CT Abd/pelvis noted with moderated bilateral pleural effusion, anasarca, and ascites. X1dose of IV lasix administered. D/w CCM and GI orders plan for thora and paracentesis by IR. Will also start patient on aldactone Qday. Patient is tolerating trickle feeds this am, continue TF and BR adjusted for constipation. Plan of care was discussed with patient and her at the bedside. Thorough discussion on patient's overall poor prognosis and that patient will most likely be vent dependent. Patient's voiced understanding of the info given. All questions and concerns were voiced at this time. 12/30: Patient did not tolerate thoracentesis in IR yesterday due to change in LOC and hypoxia. Plan for possible bedside thoracentesis and paracentesis today. Patient remains afebrile. Patient required long-term IV abx therapy [id number] left, orders placed for a PICC. Patient remains with sign. Piting edema and anasarca, X1 does of PO Zaroxolyn and 2m of IV lasix given. Electrolytes repleted, repeat lab in the am. 12/31: Tolerated Rt. thoracentesis at the bedside yesterday, 1.4L removed. Patient remains stable on the vent this am, tolerating CPAP today PS dropped to 14. Recent CXR noted, left pleural effusion improved. Patient tolerated gentle diurese yesterday, good urine output reported. D/w CCM hold off on Left thoracentesis today, continue PO Aldactone and additonal zaroxolyn and IV lasix again today. F/u CXR in the am. 01/01: This am CXR noted with worsening bilateral pleural effusion. Patient is stable and tolerating PST this am, however PS is back up to 20 this am. BP is soft this am will hold off on IV diuretic for today, continue PO Aldactone. D/w CCM continue gentle diurese as tolerated. Will reassess in the am. Continue support care. 01/02: MARIA DEL CARMEN overnight. VSS this am, tolerating PST. X1dose of 25% IV Albumin following with 20mg IV Lasix today. Continue daily gentle diurese if hemodynamics tolerate it. Continue to monitor and replace electrolytes as needed 01/03: Abdominal distention and vomiting overnight, 600cc of gastric residual removed, TF held. KUB with no acute abnormality. Reglan added X2days, resume TF, and continue BR. Patient is tolerating PST this am. Hemodynamics remains stable, will continue gentle IV diurese. close monitoring to renal function and electrolytes. 01/04: Tolerating TF, nausea/vomiting resolved, last BM on 01/03. Continue Reglan X1 more day. Patient continue to tolerate PST. D/W CCM continue gentle diurese. F/U CXR in the am. Possible US thoracentesis tomorrow. 01/05: no acute events overnight. scheduled for thoracentesis today but procedure pushed to tomorrow. TF restarted and will be NPO post MN. 01/06: planned thoracentesis today. Working with CM for ltac/snf approval. 01/07: s/p thoracentesis 120 cc appears to have been removed. Pulm recommendations noted, agree with continued diuresis and weaning. Continued planning with CM for ltac/snf placement. 01/08: No new issues. Continue vent weaning per pulmonary. Continuing to work with CM for placement. 01/09: No new issues. Continue vent weaning per pulmonary. Continuing to work with CM for placement. Ordered BMP for tomorrow to check kidney function as patient is currently being diuresed. 01/10: No new issues. Continue vent weaning/diuresis as directed by pulmonary medicine.BMP demonstrates normal renal function and potassium. Sodium and Chloride consistent with prior labs. Will recheck BMP in 2 days. Placement continues to be an issue as patient has been denied at all facilities. Will reasses with CM on wednesday. 01/11: Emesis overnight. Do not suspect that she is obstructed as she had 2 BM reported. Will order Reglan prn, drop TF rate to goal of 30 cc/hr. Will continue to work on placement. 01/12: Per RN patient had reported that she was tired and did not want to persist in her current state of health. D/w patient Niraj at patient bedside and stated that I recommended the patient/family at least talk with hospice to get a better understanding of their care. He was agreeable. I spoke with Ms. Busby who will help set up referral for hospice service so that family can be educated and, if the patient chooses, can pursue this option. Assessment and Plan Neuro : Anxiety, chronic pain -Neurology consulted, appreciate recommendations -CT brain showed no acute events -EEG interpreted as abnormal record due to diffuse slowing noted throughout the recording, suggestive of encephalopathic process and/or drug effect, possibilities of postictal state cannot be totally excluded. Clinical correlation is in order -MRI brain not obtained-> patient has metal in her body -Repeat CT head with no acute findings -Reorientation as needed -Ammonia 42, B12 1823, TSH 1.5 -BuSpar, Seroquel, [place], gabapentin -prn xanax and Dilaudid Cardio: Acute Heart failure with reduced EF, h/o chronic heart block s/p PPM, HTN, CAD s/p PCI (2004), Moderate pulmonary HTN, cardiomyopathy -s/p vasopressor support with levophed -11/04 echocardiogram shows EF 30 to 35%, Moderate pulmonary HTN RVSP 49 -12/19 echo with 35-40% EF -Cardiology consulted, appreciate recommendations -Continue beta-charleen and statin therapy -Midodrine (titrate as needed) -Not on aspirin due to allergy -Blood pressure monitoring per protocol -As needed nitroglycerin Resp: Acute hypoxic respiratory failure secondary to bilateral pneumonia, bilateral pleural effusion. Right pneumothorax (resolved) -ID- PCR negative -Intubated on 11/06 with 6.00 ETT at 18 at the lip and changed over bougie on 11/11-7.50 ETT at 20 at the lip -See RT notes for titration -PSV as tolerated -Surgery consult for trach -Received trach/PEG on 11/26 -S/p bedside bronchoscopy on 11/11 complicated by pneumothorax -S/p chest tube placement for right pneumothorax and dislodgment by patient on 11/15 -ABG/CXR per CCM -VAP bundle -Right chest wall ultrasound showed pleural effusion s/p chest tube -12/11 US thoracentesis removed 1L fluid -12/29 US thoracentesis removed 1.4L fluid -01/06 thoracentesis planned -SPO2 monitoring GI: S/p GI bleed, duodenal ulcer, transaminitis -GI consulted, appreciate recommendations-signed off -Nutrition consult for tube feeding, currently on nepro TF 45 cc/hr, dropped to 30 cc/hr due to concerns for emesis. -BR: Senokot -s/p peg 11/26 -H2 charleen -Carafate -24-hour +428 ml -10/2021 Gastric occult positive -> EGD-> duodenal ulcer -12/14 occult stool positive - reglan prn. : Urinary retention (resolved), hyponatremia, hypochloremia -Strict intake and output -Trend BMP ID: Septic shock (POA-resolved), bilateral pneumonia, MRSA bacteremia/pna -Infectious disease consulted, appreciate recommendations -COVID- PCR negative -Presented with fevers, leukocytosis and hypotension -11/04 blood cultures positive with a group B strep bacteremia 12/19 however repeat blood cultures on the with no growth to date -Echo showed no evidence of vegetation -repeat echo showed EF 35-40 % with no vegetations -ABX therapy: IV vancomycin for 4 weeks (12/16-01/26) -Monitor WBC and fever curve -Bedside bronchoscopy for mucous plug on CXR 11/11 -f/u blood cultures Heme: Acute DVT in the right external iliac vein, common femoral vein, superior aspect of femoral vein, Acute microcytic anemia -Evidenced on bilateral upper lower extremity ultrasound -S/p 7 unit PRBC -Trend CBC -Transfuse for hemoglobin less than 7 -heparin gtt dc d/t anemia -S/p IVC filter Endo: h/o DM and hypothyroidism -Continue home Synthroid -SSI -Accu-Cheks every 6 -Avoid hypoglycemia Disposition: Denied LTAC placement by insurance, appeal denied. Awaiting subacute rehab placement The high probability of a clinically significant, sudden or life threatening deterioration of the [pulm,mental health, CV] system(s) required my full and direct attention, intervention and personal management. The aggregate critical care time was [60] minutes. This time is in addition to time spent performing reported procedures but includes the following: [x] Data Review and interpretation [x] Patient assessment and monitoring of vital signs [x] Documentation [x] Medication orders and management Disposition Plan: imcu Total Time Spent with Patient (Minutes): 60 History Interval history: Patient seen and evaluated. In no distress. Resting comfortably. Per RN patient had reported that she was tired and did not want to persist in her current state of health. Hospitalist Physical - Physical exam Narrative exam: Physical Exam: VITAL SIGNS: Reviewed. GENERAL: The patient appears normally developed, Vital signs as documented. Frail appearing elderly woman. HEAD: No signs of head trauma. EYES: Pupils are equal. Extraocular motions intact. EARS: Hearing grossly intact. MOUTH: Oropharynx is normal. NECK: No adenopathy, no JVD. CHEST: Bl rhonchi CARDIAC: Regular rate and rhythm. S1 and S2, without murmurs, gallops, or rubs. VASCULAR: No Edema. Peripheral pulses normal and equal in all extremities. ABDOMEN: Soft, non tender and non distended. No rebound or guarding, and no masses palpated. Bowel Sounds normal. MUSCULOSKELETAL: Good range of motion of all major joints. Extremities without clubbing, cyanosis or edema. NEUROLOGIC EXAM: Alert and oriented x 4. no focal sensory or strength deficits. PSYCHIATRIC: anxious appearing SKIN: detail exam as documented in skin assessment - Constitutional Vitals: Temp Pulse Resp BP Pulse Ox 97.7 F 60 14 112/54 98 01/12/22 08:00 01/12/22 09:00 01/12/22 09:00 01/12/22 09:00 01/12/22 09:00 General appearance: Present: no acute distress, other (Trach and on the vent) HEART Score - HEART Score Troponin: Troponin T 0.045 ng/mL (0.00-0.029) H 11/29/21 20:15 Results - Labs CBC & Chem 7: 01/06/22 04:06 01/10/22 04:00 Labs: Laboratory Last Values WBC 7.7 K/mm3 (4.5-11.0) 01/06/22 04:06 RBC 2.89 M/mm3 (3.65-5.03) L 01/06/22 04:06 Hgb 7.7 gm/dl (10.1-14.3) L 01/06/22 04:06 Hct 23.8 % (30.3-42.9) L 01/06/22 04:06 MCV 82 fl (79-97) 01/06/22 04:06 MCH 27 pg (28-32) L 01/06/22 04:06 MCHC 33 % (30-34) 01/06/22 04:06 RDW 18.0 % (13.2-15.2) H 01/06/22 04:06 Plt Count 225 K/mm3 (140-440) 01/06/22 04:06 Add Manual Diff Complete 12/20/21 04:54 Total Counted 100 12/20/21 04:54 Seg Neutrophils % Belt Knife Feeder 11/06/21 15:50 Seg Neuts % (Manual) 88.0 % (40.0-70.0) H 12/20/21 04:54 Band Neutrophils % 0 % 12/20/21 04:54 Lymphocytes % (Manual) 6.0 % (13.4-35.0) L 12/20/21 04:54 Reactive Lymphs % (Man) 0 % 12/20/21 04:54 Monocytes % (Manual) 5.0 % (0.0-7.3) 12/20/21 04:54 Eosinophils % (Manual) 1.0 % (0.0-4.3) 12/20/21 04:54 Basophils % (Manual) 0 % (0.0-1.8) 12/20/21 04:54 Metamyelocytes % 0 % 12/20/21 04:54 Myelocytes % 0 % 12/20/21 04:54 Promyelocytes % 0 % 12/20/21 04:54 Blast Cells % 0 % 12/20/21 04:54 Nucleated RBC % Not Reportable 12/20/21 04:54 Seg Neutrophils # Man 10.8 K/mm3 (1.8-7.7) H 12/20/21 04:54 Band Neutrophils # 0.0 K/mm3 12/20/21 04:54 Lymphocytes # (Manual) 0.7 K/mm3 (1.2-5.4) L 12/20/21 04:54 Abs React Lymphs (Man) 0.0 K/mm3 12/20/21 04:54 Monocytes # (Manual) 0.6 K/mm3 (0.0-0.8) 12/20/21 04:54 Eosinophils # (Manual) 0.1 K/mm3 (0.0-0.4) 12/20/21 04:54 Basophils # (Manual) 0.0 K/mm3 (0.0-0.1) 12/20/21 04:54 Metamyelocytes # 0.0 K/mm3 12/20/21 04:54 Myelocytes # 0.0 K/mm3 12/20/21 04:54 Promyelocytes # 0.0 K/mm3 12/20/21 04:54 Blast Cells # 0.0 K/mm3 12/20/21 04:54 WBC Morphology Not Reportable 12/20/21 04:54 Hypersegmented Neuts Not Reportable 12/20/21 04:54 Hyposegmented Neuts Not Reportable 12/20/21 04:54 Hypogranular Neuts Not Reportable 12/20/21 04:54 Smudge Cells Not Reportable 12/20/21 04:54 Toxic Granulation Not Reportable 12/20/21 04:54 Toxic Vacuolation Not Reportable 12/20/21 04:54 Dohle Bodies Not Reportable 12/20/21 04:54 Pelger-Huet Anomaly Not Reportable 12/20/21 04:54 Irina Rods Not Reportable 12/20/21 04:54 Platelet Estimate Consistent w auto 12/20/21 04:54 Clumped Platelets Not Reportable 12/20/21 04:54 Plt Clumps, EDTA Not Reportable 12/20/21 04:54 Large Platelets Not Reportable 12/20/21 04:54 Giant Platelets Not Reportable 12/20/21 04:54 Platelet Satelliting Not Reportable 12/20/21 04:54 Plt Morphology Comment Not Reportable 12/20/21 04:54 RBC Morphology Not Reportable 12/20/21 04:54 Dimorphic RBCs Not Reportable 12/20/21 04:54 Polychromasia Not Reportable 12/20/21 04:54 Hypochromasia Not Reportable 12/20/21 04:54 Poikilocytosis Not Reportable 12/20/21 04:54 Anisocytosis 1+ 12/20/21 04:54 Microcytosis Not Reportable 12/20/21 04:54 Macrocytosis Not Reportable 12/20/21 04:54 Spherocytes Not Reportable 12/20/21 04:54 Pappenheimer Bodies Not Reportable 12/20/21 04:54 Sickle Cells Not Reportable 12/20/21 04:54 Target Cells Not Reportable 12/20/21 04:54 Tear Drop Cells Not Reportable 12/20/21 04:54 Ovalocytes Not Reportable 12/20/21 04:54 Helmet Cells Not Reportable 12/20/21 04:54 Odonnell-Spurgeon Bodies Not Reportable 12/20/21 04:54 [place] Rings Not Reportable 12/20/21 04:54 Malcom Cells Not Reportable 12/20/21 04:54 Bite Cells Not Reportable 12/20/21 04:54 Crenated Cell Not Reportable 12/20/21 04:54 Elliptocytes Not Reportable 12/20/21 04:54 Acanthocytes (Spur) Not Reportable 12/20/21 04:54 Rouleaux Not Reportable 12/20/21 04:54 Hemoglobin C Crystals Not Reportable 12/20/21 04:54 Schistocytes Not Reportable 12/20/21 04:54 Malaria parasites Not Reportable 12/20/21 04:54 Godfrey Bodies Not Reportable 12/20/21 04:54 Hem Pathologist Commnt No 12/20/21 04:54 PT 16.9 Sec. (12.2-14.9) H 01/06/22 04:06 INR 1.23 (0.87-1.13) H 01/06/22 04:06 APTT 29.2 Sec. (24.2-36.6) 11/26/21 05:00 D-Dimer 2655.00 ng/mlDDU (0-234) H 11/11/21 04:28 ABG pH 7.479 pH Units (7.350-7.450) H 12/16/21 20:52 ABG pCO2 37.5 mm Hg 12/16/21 20:52 ABG pO2 79.3 mm Hg (80.0-90.0) L 12/16/21 20:52 ABG HCO3 27.3 mmol/L (20.0-26.0) H 12/16/21 20:52 ABG O2 Saturation 97.0 % (95.0-99.0) 12/16/21 20:52 ABG O2 Content 12.3 (0.0-44) 12/16/21 20:52 ABG Base Excess 3.6 mmol/L (-2.0-3.0) H 12/16/21 20:52 ABG Hemoglobin 9.1 gm/dl (12.0-16.0) L 12/16/21 20:52 ABG Carboxyhemoglobin 1.6 % (0.0-5.0) 12/16/21 20:52 ABG Methemoglobin 0.5 % (0.0-1.5) 12/16/21 20:52 Oxyhemoglobin 94.9 % (95.0-99.0) L 12/16/21 20:52 FiO2 30 % 12/16/21 20:52 Sodium 133 mmol/L (137-145) L 01/10/22 04:00 Potassium 4.0 mmol/L (3.6-5.0) 01/10/22 04:00 Chloride 92.6 mmol/L (98-107) L 01/10/22 04:00 Carbon Dioxide 31 mmol/L (22-30) H 01/10/22 04:00 Anion Gap 13 mmol/L 01/10/22 04:00 BUN 29 mg/dL (7-17) H 01/10/22 04:00 Creatinine 0.5 mg/dL (0.6-1.2) L 01/10/22 04:00 Estimated GFR > 60 ml/min 01/10/22 04:00 BUN/Creatinine Ratio 58 % 01/10/22 04:00 Glucose 115 mg/dL (65-100) H 01/10/22 04:00 POC Glucose 110 mg/dL (70-105) H 01/12/22 05:39 Lactic Acid 3.70 mmol/L (0.7-2.0) H* 11/03/21 22:32 Calcium 8.9 mg/dL (8.4-10.2) 01/10/22 04:00 Phosphorus 3.80 mg/dL (2.5-4.5) 01/05/22 04:30 Magnesium 2.00 mg/dL (1.7-2.3) 01/05/22 04:30 Ferritin 52.6 ng/mL (10.0-200.0) 11/05/21 06:11 Total Bilirubin 0.50 mg/dL (0.1-1.2) 11/17/21 05:56 Direct Bilirubin < 0.2 mg/dL (0-0.2) 11/11/21 04:28 Indirect Bilirubin 0.1 mg/dL 11/11/21 04:28 AST 36 units/L (5-40) 11/17/21 05:56 ALT 47 units/L (7-56) 11/17/21 05:56 Alkaline Phosphatase 107 units/L (35-129) 11/17/21 05:56 Ammonia 42.0 umol/L (25-60) 11/10/21 14:08 Lactate Dehydrogenase 187 units/L (91-180) H 11/05/21 06:11 Troponin T 0.045 ng/mL (0.00-0.029) H 11/29/21 20:15 C-Reactive Protein 22.20 mg/dL (0.00-1.30) H 11/05/21 06:11 NT-Pro-B Natriuret Pep 7895 pg/mL (0-900) H 11/03/21 22:32 Total Protein 5.1 g/dL (6.3-8.2) L 11/17/21 05:56 Albumin 2.2 g/dL (3.9-5) L 11/17/21 05:56 Albumin/Globulin Ratio 0.8 % 11/17/21 05:56 Triglycerides 59 mg/dL (2-149) 11/29/21 20:15 Cholesterol 74 mg/dL (50-199) 11/29/21 20:15 LDL Cholesterol Direct 25 mg/dL (50-130) L 11/29/21 20:15 HDL Cholesterol 41 mg/dL (40-59) 11/29/21 20:15 Cholesterol/HDL Ratio 1.80 % 11/29/21 20:15 Vitamin B12 1823 pg/mL (211-911) H 11/10/21 14:08 TSH 1.510 mlU/mL (0.270-4.200) 11/10/21 14:08 Urine Color Yellow (Yellow) 11/11/21 09:00 Urine Turbidity Slightly-cloudy (Clear) 11/11/21 09:00 Urine pH 5.0 (5.0-7.0) 11/11/21 09:00 Ur Specific [place] 1.009 (1.003-1.030) 11/11/21 09:00 Urine Protein <15 mg/dl mg/dL (Negative) 11/11/21 09:00 Urine Glucose (UA) Neg mg/dL (Negative) 11/11/21 09:00 Urine Ketones Neg mg/dL (Negative) 11/11/21 09:00 Urine Blood Mod (Negative) 11/11/21 09:00 Urine Nitrite Neg (Negative) 11/11/21 09:00 Urine Bilirubin Neg (Negative) 11/11/21 09:00 Urine Urobilinogen < 2.0 mg/dL (<2.0) 11/11/21 09:00 Ur Leukocyte Esterase Neg (Negative) 11/11/21 09:00 Urine WBC (Auto) < 1.0 /HPF (0.0-6.0) 11/11/21 09:00 Urine RBC (Auto) < 1.0 /HPF (0.0-6.0) 11/11/21 09:00 Fluid Type Pleural 01/06/22 13:40 Fluid Color Yellow 01/06/22 13:40 Fluid Appearance Hazy 01/06/22 13:40 Fluid WBC 273 /mm3 01/06/22 13:40 Fluid RBC 45 /mm3 01/06/22 13:40 Fluid Seg Neutrophils 47.0 % 01/06/22 13:40 Fluid Lymphocytes 22.0 % 01/06/22 13:40 Fluid Monocytes 10.0 % 01/06/22 13:40 Fluid Eosinophils 19.0 % 01/06/22 13:40 Fluid Basophils 2.0 % 01/06/22 13:40 Fluid Glucose 96 mg/dL (40-70) H 01/06/22 13:40 Fluid Total Protein < 3.0 (15.0-45.0) L 01/06/22 13:40 Fluid LDH 149 01/06/22 13:40 Vancomycin Trough 13.7 ug/mL (5.0-20.0) 01/08/22 06:33 Random Vancomycin 10.5 ug/mL (0-40.0) 01/04/22 05:00 Coronavirus (PCR) Negative (Negative) 11/10/21 08:30 Blood Type O POSITIVE 12/14/21 10:30 Antibody Screen Negative 12/14/21 10:30 Crossmatch See Detail 12/14/21 10:30 Gamble/IV: Voiding Method External Female Catheter Active Medications - Current Medications Current Medications: Generic Name Dose Route Start Last Admin Trade Name Freq PRN Reason Stop Dose Admin Acetaminophen 650 mg 12/14/21 04:12 01/11/22 03:35 Acetaminophen 325 Mg/10.15 Ml Oral Liqd Unit Dose FEEDTUBE 650 mg Q6H PRN Administration Non Cardiac Pain or Temp>100.5 Hydrocodone Bitart/Acetaminophen 1 each 11/21/21 10:00 01/12/22 08:28 Hydrocodone/Acetaminophen 10-325mg Tab FEEDTUBE 1 each TID YOSSI Administration Alprazolam 0.25 mg 12/30/21 09:00 01/11/22 23:53 Alprazolam 0.25 Mg Tab FEEDTUBE 0.25 mg Q8H PRN Administration Agitation Lipase/Protease/Amylase 1 each 11/08/21 11:09 Lipase 10,500/Protease 25,000/Amylase 43,750 (Units) Dr Cap FEEDTUBE PRN PRN For Clogged Feeding Tube Buspirone HCl 7.5 mg 12/30/21 10:00 01/11/22 21:06 Buspirone 5 Mg Tab FEEDTUBE 7.5 mg BID YOSSI Administration Dextrose 0 ml 11/10/21 10:52 12/30/21 00:48 Dextrose 10% *Hypoglycemia IV 50 ml PRN PRN Administration Hypoglycemia Docusate Sodium 100 mg 12/30/21 10:00 01/11/22 21:09 Docusate Sodium 100 Mg/10 Ml Oral Liqd FEEDTUBE Not Given BID YOSSI Furosemide 20 mg 01/08/22 10:00 01/11/22 09:38 Furosemide 20 Mg Tab PO 20 mg QDAY YOSIS Administration Gabapentin 100 mg 12/30/21 10:00 01/11/22 09:39 Gabapentin 100 Mg Cap FEEDTUBE 100 mg QDAY YOSSI Administration Hydrophilic Ointment 1 applic 11/06/21 04:02 Lip Therapy Vaseline TP Q2HR PRN Dry Lips Vancomycin HCl 1 gm in 250 mls @ 166.667 mls/hr 01/04/22 10:00 01/10/22 09:12 Vancomycin/Ns 1 Gm/250 Ml IV 01/26/22 11:29 166.667 mls/hr Q48H YOSSI Administration Lansoprazole 30 mg 11/24/21 22:00 01/11/22 21:08 Lansoprazole 30 Mg Solutab FEEDTUBE 30 mg BID YOSSI Administration Levothyroxine Sodium 125 mcg 12/31/21 06:00 01/12/22 05:31 Levothyroxine 125 Mcg Tab FEEDTUBE 125 mcg DAILY@0600 YOSSI Administration Melatonin 5 mg 12/05/21 22:00 01/11/22 21:07 Melatonin 5 Mg Tab PO 5 mg QHS YOSSI Administration Metoclopramide HCl 10 mg 01/11/22 13:25 Metoclopramide 10 Mg/2 Ml Inj IV Q6H PRN Nausea And Vomiting Metoprolol Tartrate 6.25 mg 12/30/21 10:00 01/11/22 21:07 Metoprolol Tartrate 25 Mg Tab FEEDTUBE 6.25 mg BID YOSSI Administration Midodrine 5 mg 12/30/21 09:00 01/12/22 08:28 Midodrine 5 Mg Tab FEEDTUBE 5 mg TID@0800,1200,1600 YOSSI Administration Multi-Ingred Cream/Lotion/Oil/Oint 1 applic 11/06/21 04:02 Mineral Oil/Petrolatum, White Ophth Oint 3.5 Gm OU Q4HR PRN Dry Eye(s) Ondansetron HCl 4 mg 12/05/21 10:00 01/11/22 21:30 Ondansetron 4 Mg/2 Ml Inj IV 4 mg Q8H PRN Administration Nausea And Vomiting Polyethylene Glycol 17 gm 12/30/21 10:00 01/11/22 09:39 Polyethylene Glycol 3350 17 Gm Powder FEEDTUBE Not Given QDAY YOSSI Pravastatin Sodium 20 mg 12/30/21 22:00 01/11/22 21:17 Pravastatin 20 Mg Tab FEEDTUBE 20 mg QHS YOSSI Administration Quetiapine Fumarate 25 mg 12/30/21 10:00 01/11/22 09:38 Quetiapine 25 Mg Tab FEEDTUBE 25 mg QAM YOSSI Administration Quetiapine Fumarate 50 mg 12/30/21 22:00 01/11/22 21:06 Quetiapine 25 Mg Tab FEEDTUBE 50 mg QHS YOSSI Administration Senna 17.6 mg 12/29/21 11:00 01/11/22 21:08 Sennosides Oral Liqd 8.8 Mg/5 Ml Oral Liqd FEEDTUBE Not Given Q12HR YOSSI Simple Syrup 15 ml 11/08/21 11:09 Simple Syrup 15 Ml FEEDTUBE PRN PRN Hypoglycemia Simple Syrup 30 ml 11/08/21 11:09 Simple Syrup 15 Ml FEEDTUBE PRN PRN Hypoglycemia Sodium Bicarbonate 325 mg 11/08/21 11:09 01/09/22 20:25 Sodium Bicarbonate 325 Mg Tab FEEDTUBE 325 mg PRN PRN Administration For Clogged Feeding Tube Sodium Chloride 10 ml 11/04/21 10:00 01/11/22 21:08 Sodium Chloride 0.9% 10 Ml Flush Syringe IV 10 ml BID YOSSI Administration Sodium Chloride 10 ml 11/04/21 02:03 01/09/22 06:35 Sodium Chloride 0.9% 10 Ml Flush Syringe IV 10 ml PRN PRN Administration LINE FLUSH Spironolactone 25 mg 12/30/21 10:00 01/11/22 09:38 Spironolactone 25 Mg Tab FEEDTUBE 25 mg QDAY YOSSI Administration Sucralfate 1 gm 12/30/21 12:00 01/12/22 05:31 Sucralfate 1 Gm/10 Ml Oral Liqd FEEDTUBE 1 gm Q6HR YOSSI Administration Trazodone HCl 50 mg 12/04/21 22:00 01/11/22 21:14 Trazodone 50 Mg Tab PO 50 mg QHS YOSSI Administration Nutrition/Malnutrition Assess - Dietary Evaluation Nutrition/Malnutrition Findings: Nutrition Notes Start: 11/04/21 17:16 Freq: Status: Active Protocol: Document 01/10/22 18:16 ISABELL (Rec: 01/10/22 18:44 ISABELL [id number]) Nutrition Notes Initial or Follow up Reassessment Current Diagnosis Diabetes,Heart Failure, Respiratory Failure Other Pertinent Diagnosis Bacteremia, Pneumonia, Bilateral Pleural Effusion, Agitation/Anxiety. Current Diet TF-Vital AF 1.2 Tamir @ 45 ml/hr (since D 12/22). Labs/Tests 01/10: Na 133, Cl 92.6, CO2 31 , BUN 29, Crea 0.5, Glu 115. Pertinent Medications 01/10: Levothyroxine, others nutritionally unremarkable. Height 5 ft Weight 73 kg Meherrin Body Weight (kg) 45.45 BMI 31.4 Weight change and time frame 0.3 Kg body weight loss in 1 week reported. Weight Status Obese Subjective/Other Information RD consult for routine F/U on TF tolerance. TF continues as prescribed, well tolerated, according to RN notes. Pt continues on Mechanical Ventilation. Procedure on 01/07: US Toracentesis, TF off on 01/06 at 08:14, TF resumed after procedure. Well tolerated, according to RN notes. Pt still waiting for LTAC/SNF placement, unsuccessfully. Percent of energy/protein needs met: 102% Kcal; 89% AA. Burn Absent Trauma Absent GI Symptoms Other Food Allergy No Skin Integrity/Comment Surgical wounds. Current % PO Other Minimum of two criteria No #1 Nutrition Diagnosis Inadequate oral intake Diagnosis Progress(for reassessment Continues documentation) Is patient on ventilator? Yes Is Patient Ambulatory and/or Out of Bed No REE-([facility]-confined to bed) 1334.892 Kcal/Kg value to use for calculation 17 Approximate Energy Requirements Using 1241 kcal/Kg Calculation Used for Recommendations Kcal/kg Additional Notes Protein: 2 g/Kg IBW; 91 g/day. Fluids: 1 ml/Kcal, or as per MD. Nutrition Intervention Nutrition Support: Continue Vital AF 1.2 Tamir @ 45 ml/hr. Flush: 70 ml water Q 4 hr, or as per MD. Kcal 1,296 Protein (gm) 81 Carbohydrates (gm) 119 Fat (gm) 58 Fluid (mL) 876 Fiber (gm) 6 % RDI: 102% Kcal; 89% AA. Goal #1 Provide at least 75% of energy /protein needs through Enteral Feeding during LOS. Goal #2 Maintain body weight within +/ -3% of admission body weight during LOS. Follow-Up By: 01/16/22 Additional Comments Continue monitoring TF tolerance and BM. Mechanical Ventilation status.
[2022-01-12] MEDS: busPIRone 5 MG TAB FEEDTUBE SCH ×2 (09:48→20:59)
[2022-01-12] MEDS: FUROSEMIDE 20 MG TAB PO SCH (09:49)
[2022-01-12] MEDS: LANSOPRAZOLE 30 MG SOLUTAB FEEDTUBE SCH ×2 (09:49→21:00)
[2022-01-12] MEDS: SPIRONOLACTONE 25 MG TAB FEEDTUBE SCH (09:49)
[2022-01-12] MEDS: METOPROLOL TARTRATE 25 MG TAB FEEDTUBE SCH ×2 (09:49→21:00)
[2022-01-12] MEDS: GABAPENTIN 100 MG CAP FEEDTUBE SCH (09:49)
[2022-01-12] MEDS: QUEtiapine 25 MG TAB FEEDTUBE SCH ×2 (09:49→20:59)
[2022-01-12] MEDS: VANCOMYCIN/NS 1 GM/250 ML 1 GM/250 ML BAG IV SCH (09:50)
[2022-01-12] MEDS: METOCLOPRAMIDE 10 MG/2 ML INJ IV PRN ×2 (09:50→21:00)
[2022-01-12] MEDS: POLYETHYLENE GLYCOL 3350 17 GM POWDER FEEDTUBE SCH (09:50)
[2022-01-12] MEDS: SENNOSIDES ORAL LIQD 8.8 MG/5 ML ORAL LIQD FEEDTUBE SCH ×2 (09:50→20:59)
[2022-01-12] MEDS: DOCUSATE SODIUM 100 MG/10 ML ORAL LIQD FEEDTUBE SCH ×2 (09:50→20:59)
--- NOTE | 2022-01-12 12:28 | Progress Note ---
Assessment and Plan 81-year-old female with known history of diabetes mellitus, hypertension and arthritis brought to the emergency room via EMS for shortness of breath which has been ongoing for the past 3 days prior to come to the emergency room. Patient has been having some cough and shortness of breath. According to patient's , patient has also been having a fever of about 102.2 F. Upon arrival of EMS patient was found to be tachypneic with O2 saturation of 76% on room air which later improved to 88% on nonrebreather. Work-up in the emergency room , chest x-ray shows bilateral interstitial pulmonary edema with bilateral pleural effusions.. Bibasilar opacities which favors atelectasis. Lab reveals leukocytosis of 29. Hemoglobin of 6.1. Patient received blood transfusion and also checked for COVID-19. Patient Ivy virus test reported negative. Patient intubated and placed on mechanical ventilation. Patient transfered to ICU. Patient undergone thoracentesis and chest tube placement. Patient still on mechanical ventilation. Patient transfered to [facility]. Patient awake. Patient is presently on pressure support ventilation, pressure support 14, FIO2 30%, PEEP 8 and O2 saturation running 100%. Continue spontaneous breathing trials and slowly wean from pressure support. Patient afebrile. No leukocytosis.Blood pressure 122/56, Pulse 60 , respirations 10 Patients recent HGB 7.7 01/06/22 Chest xray 12/11/21 reported Diffuse bilateral pulmonary opacities most significant in the left lung and right upper lung .No pneumothorax. Chest xray done 01/01/22 reported Worsening bilateral pulmonary opacities and effusions Chest xray 01/05/22 reported Diffuse bilateral pleuroparenchymal opacities, right greater than left, are similar to the prior exam. No pneumothorax. Patient undergone thoracentesis under Ultrasound guidance. Repeat chest xray post thoracentesis 01/06/22 reported Near complete evacuation of the right pleural effusion. No pneumothorax. Pleural fluid cell count wbc 273, RBC 45 Pleural fluid chemistry Protein less than 3, [id number], Glucose 96. Pleural fluid is transudate. Patient is on Vancomycin, Prevacid and Sucralfate. Recommend SCDs. Patient is on tube feeding. I spent critical care time of 32 minutes, reviewing the chart, examine the patient, review lab results, chest xray and talk to respiratory therapy and nursing staff and work out plan of treatment in this critically ill patient. - Patient Problems (1) Acute respiratory failure with hypoxia Current Visit: Yes Status: Acute Plan to address problem: Mechanical ventilation, pressure support 14, FIO2 30%, PEEP 8 S/P tracheostomy. (2) Bilateral pneumonia Current Visit: Yes Status: Acute Plan to address problem: Patient is on vancomycin. (3) Occult blood positive stool Current Visit: Yes Status: Acute Plan to address problem: Management as per gastroenterology. (4) Acute anemia Current Visit: Yes Status: Acute Plan to address problem: Patient received blood transfusion. (5) Suspected COVID-19 virus infection Current Visit: Yes Status: Acute Plan to address problem: Ivy virus PCR negative. (6) Pleural effusion Current Visit: Yes Status: Acute Plan to address problem: Patient unergone right thoracentesis under ultrasound guidance. Post thoracentesis chest xray reported Near complete evacuation of the right pleural effusion. No pneumothorax. Pleural fluid cell count wbc 273, RBC 45 Pleural fluid chemistry Protein less than 3, [id number], Glucose 96. Pleural fluid is transudate. Subjective Date of service: 01/12/22 Principal diagnosis: Septic shock; AHRF; Anemia; Pneumonia; pleural effusion; HFrEF; Pulm HTN Interval history: 81-year-old female with known history of diabetes mellitus, hypertension and arthritis brought to the emergency room via EMS for shortness of breath which has been ongoing for the past 3 days prior to come to the emergency room. Patient has been having some cough and shortness of breath. According to patient's , patient has also been having a fever of about 102.2 F. Upon arrival of EMS patient was found to be tachypneic with O2 saturation of 76% on room air which later improved to 88% on nonrebreather. Work-up in the emergency room , chest x-ray shows bilateral interstitial pulmonary edema with bilateral pleural effusions.. Bibasilar opacities which favors atelectasis. Lab reveals leukocytosis of 29. Hemoglobin of 6.1. Patient received blood transfusion and also checked for COVID-19. Patient Ivy virus test reported negative. Patient intubated and placed on mechanical ventilation. Patient transfered to ICU. Patient undergone thoracentesis and chest tube placement. Patient still on mechanical ventilation. Patient transfered to [facility]. Patient awake. Patient is presently on pressure support ventilation, pressure support 14, FIO2 30%, PEEP 8 and O2 saturation running 100%. Continue spontaneous breathing trials and slowly wean from pressure support. Patient afebrile. No leukocytosis.Blood pressure 122/56, Pulse 60 , respirations 10 Patients recent HGB 7.7 01/06/22 Chest xray 12/11/21 reported Diffuse bilateral pulmonary opacities most significant in the left lung and right upper lung .No pneumothorax. Chest xray done 01/01/22 reported Worsening bilateral pulmonary opacities and effusions Chest xray 01/05/22 reported Diffuse bilateral pleuroparenchymal opacities, right greater than left, are similar to the prior exam. No pneumothorax. Patient undergone thoracentesis under Ultrasound guidance. Repeat chest xray post thoracentesis 01/06/22 reported Near complete evacuation of the right pleural effusion. No pneumothorax. Pleural fluid cell count wbc 273, RBC 45 Pleural fluid chemistry Protein less than 3, [id number], Glucose 96. Pleural fluid is transudate. Patient is on Vancomycin, Prevacid and Sucralfate. Recommend SCDs. Patient is on tube feeding. Objective Vital Signs - 12hr 01/12/22 01/12/22 01/12/22 00:31 01:00 01:31 Temperature Pulse Rate 61 60 60 Pulse Rate [ From Monitor] Respiratory 14 14 14 Rate Blood Pressure 147/41 131/57 131/57 O2 Sat by Pulse 100 96 99 Oximetry 01/12/22 01/12/22 01/12/22 02:00 02:31 03:00 Temperature Pulse Rate 60 60 60 Pulse Rate [ From Monitor] Respiratory 14 14 14 Rate Blood Pressure 131/57 130/63 122/58 O2 Sat by Pulse 94 99 100 Oximetry 01/12/22 01/12/22 01/12/22 03:31 03:41 04:00 Temperature 98.2 F Pulse Rate 60 60 60 Pulse Rate [ 70 From Monitor] Respiratory 14 14 Rate Blood Pressure 122/58 122/58 124/47 O2 Sat by Pulse 100 99 96 Oximetry 01/12/22 01/12/22 01/12/22 04:31 05:00 05:31 Temperature Pulse Rate 60 60 60 Pulse Rate [ From Monitor] Respiratory 14 14 13 Rate Blood Pressure 124/47 119/39 119/39 O2 Sat by Pulse 100 100 99 Oximetry 01/12/22 01/12/22 01/12/22 06:01 06:30 07:00 Temperature Pulse Rate 63 60 61 Pulse Rate [ From Monitor] Respiratory 14 23 15 Rate Blood Pressure 122/68 122/68 119/39 O2 Sat by Pulse 98 100 100 Oximetry 01/12/22 01/12/22 01/12/22 07:30 08:00 08:30 Temperature 97.7 F Pulse Rate 62 60 60 Pulse Rate [ 65 From Monitor] Respiratory 16 16 18 Rate Blood Pressure 122/68 96/47 96/47 O2 Sat by Pulse 100 100 100 Oximetry 01/12/22 01/12/22 01/12/22 08:31 09:00 09:30 Temperature Pulse Rate 60 60 Pulse Rate [ From Monitor] Respiratory 25 H 14 14 Rate Blood Pressure 112/54 112/54 O2 Sat by Pulse 99 98 100 Oximetry 01/12/22 01/12/22 01/12/22 09:49 10:00 10:30 Temperature Pulse Rate 63 66 60 Pulse Rate [ From Monitor] Respiratory 17 10 L Rate Blood Pressure 112/54 112/54 118/56 O2 Sat by Pulse 95 96 Oximetry 01/12/22 11:23 Temperature Pulse Rate 60 Pulse Rate [ From Monitor] Respiratory 19 Rate Blood Pressure 115/52 O2 Sat by Pulse 99 Oximetry Constitutional: no acute distress, alert, other (trach to MVS, frail elderly woman with mildly increased respiratory effort at rest) Eyes: non-icteric ENT: oropharynx moist, other (+ Midline tracheostomy with minimal secretions) Neck: supple, no lymphadenopathy, no JVD Effort: mildly labored Ascultation: Bilateral: diminished breath sounds, rhonchi, other (Right chest tube) Percussion: Bilateral: not dull, dull (bases) Cardiovascular: regular rate and rhythm, other (S1,S2) Gastrointestinal: normoactive bowel sounds, soft, non-tender, non-distended (protuberant) Integumentary: normal Extremities: no cyanosis, pink and warm, pulses normal, edema (upper etremities), anasarca Neurologic: non-focal exam (grossly), pupils equal and round, motor strength normal and Psychiatric: mood appropriate, affect normal CBC and BMP: 01/06/22 04:06 01/10/22 04:00 ABG, PT/INR, D-dimer: ABG ABG pH 7.479 pH Units (7.350-7.450) H 12/16/21 20:52 ABG pCO2 37.5 mm Hg 12/16/21 20:52 ABG pO2 79.3 mm Hg (80.0-90.0) L 12/16/21 20:52 ABG O2 Saturation 97.0 % (95.0-99.0) 12/16/21 20:52 PT/INR, D-dimer PT 16.9 Sec. (12.2-14.9) H 01/06/22 04:06 INR 1.23 (0.87-1.13) H 01/06/22 04:06 D-Dimer 2655.00 ng/mlDDU (0-234) H 11/11/21 04:28 Abnormal lab findings: Abnormal Labs 11/03/21 11/03/21 11/03/21 22:32 22:32 22:32 WBC 29.3 H RBC 2.93 L Hgb 6.1 L Hct 21.9 L MCV 75 L MCH 21 L MCHC 28 L RDW 19.7 H Plt Count Seg Neuts % (Manual) 97.0 H Lymphocytes % (Manual) 3.0 L Seg Neutrophils # Man 28.4 H Lymphocytes # (Manual) 0.9 L Monocytes # (Manual) PT 18.6 H INR 1.40 H D-Dimer ABG pH ABG pO2 ABG HCO3 ABG O2 Saturation ABG Base Excess ABG Hemoglobin Oxyhemoglobin Sodium Potassium Chloride Carbon Dioxide 20 L BUN 33 H Creatinine Glucose 119 H POC Glucose Lactic Acid Calcium 8.3 L Phosphorus Magnesium AST ALT Alkaline Phosphatase Lactate Dehydrogenase Troponin T 0.035 H C-Reactive Protein NT-Pro-B Natriuret Pep Total Protein Albumin LDL Cholesterol Direct 34 L Vitamin B12 Fluid Glucose Fluid Total Protein Vancomycin Trough Crossmatch 11/03/21 11/03/21 11/03/21 22:32 22:32 23:57 WBC RBC Hgb Hct MCV MCH MCHC RDW Plt Count Seg Neuts % (Manual) Lymphocytes % (Manual) Seg Neutrophils # Man Lymphocytes # (Manual) Monocytes # (Manual) PT INR D-Dimer ABG pH ABG pO2 ABG HCO3 ABG O2 Saturation ABG Base Excess ABG Hemoglobin Oxyhemoglobin Sodium Potassium Chloride Carbon Dioxide BUN Creatinine Glucose POC Glucose Lactic Acid 3.70 H* Calcium Phosphorus Magnesium AST ALT Alkaline Phosphatase 139 H Lactate Dehydrogenase Troponin T C-Reactive Protein NT-Pro-B Natriuret Pep 7895 H Total Protein Albumin 3.5 L LDL Cholesterol Direct Vitamin B12 Fluid Glucose Fluid Total Protein Vancomycin Trough Crossmatch See Detail 11/04/21 11/04/21 11/05/21 00:59 13:58 00:51 WBC 27.9 H RBC 3.28 L Hgb 7.3 L Hct 25.5 L MCV 78 L MCH 22 L MCHC 29 L RDW 19.1 H Plt Count Seg Neuts % (Manual) 96.0 H Lymphocytes % (Manual) 2.0 L Seg Neutrophils # Man 26.8 H Lymphocytes # (Manual) 0.6 L Monocytes # (Manual) PT INR D-Dimer ABG pH ABG pO2 ABG HCO3 ABG O2 Saturation ABG Base Excess ABG Hemoglobin Oxyhemoglobin Sodium Potassium Chloride Carbon Dioxide BUN Creatinine Glucose POC Glucose Lactic Acid Calcium Phosphorus Magnesium AST ALT Alkaline Phosphatase Lactate Dehydrogenase Troponin T 0.051 H D 0.032 H D C-Reactive Protein NT-Pro-B Natriuret Pep Total Protein Albumin LDL Cholesterol Direct Vitamin B12 Fluid Glucose Fluid Total Protein Vancomycin Trough Crossmatch 11/05/21 11/05/21 11/05/21 06:11 06:11 06:11 WBC 31.8 H RBC 3.57 L Hgb 8.0 L Hct 27.7 L MCV 78 L MCH 22 L MCHC 29 L RDW 19.2 H Plt Count Seg Neuts % (Manual) 91.0 H Lymphocytes % (Manual) 4.5 L Seg Neutrophils # Man 28.9 H Lymphocytes # (Manual) Monocytes # (Manual) 1.1 H PT INR D-Dimer 1494.53 H ABG pH ABG pO2 ABG HCO3 ABG O2 Saturation ABG Base Excess ABG Hemoglobin Oxyhemoglobin Sodium Potassium Chloride Carbon Dioxide 19 L BUN 42 H Creatinine Glucose 115 H POC Glucose Lactic Acid Calcium Phosphorus Magnesium AST 43 H ALT Alkaline Phosphatase Lactate Dehydrogenase 187 H Troponin T C-Reactive Protein 22.20 H NT-Pro-B Natriuret Pep Total Protein 6.0 L Albumin 3.2 L LDL Cholesterol Direct Vitamin B12 Fluid Glucose Fluid Total Protein Vancomycin Trough Crossmatch 11/05/21 11/05/21 11/06/21 06:11 12:15 00:30 WBC RBC Hgb Hct MCV MCH MCHC RDW Plt Count Seg Neuts % (Manual) Lymphocytes % (Manual) Seg Neutrophils # Man Lymphocytes # (Manual) Monocytes # (Manual) PT INR D-Dimer ABG pH ABG pO2 ABG HCO3 ABG O2 Saturation ABG Base Excess ABG Hemoglobin Oxyhemoglobin Sodium Potassium Chloride Carbon Dioxide BUN Creatinine Glucose POC Glucose 113 H 69 L Lactic Acid Calcium Phosphorus Magnesium AST ALT Alkaline Phosphatase Lactate Dehydrogenase Troponin T 0.033 H C-Reactive Protein NT-Pro-B Natriuret Pep Total Protein Albumin LDL Cholesterol Direct Vitamin B12 Fluid Glucose Fluid Total Protein Vancomycin Trough Crossmatch 11/06/21 11/06/21 11/06/21 05:50 15:50 15:50 WBC 25.5 H RBC 3.62 L Hgb 8.0 L Hct 27.5 L MCV 76 L MCH 22 L MCHC 29 L RDW 19.6 H Plt Count Seg Neuts % (Manual) 92.0 H Lymphocytes % (Manual) 5.0 L Seg Neutrophils # Man 23.5 H Lymphocytes # (Manual) Monocytes # (Manual) PT INR D-Dimer ABG pH 7.305 L ABG pO2 ABG HCO3 15.8 L ABG O2 Saturation ABG Base Excess -9.6 L ABG Hemoglobin 8.6 L Oxyhemoglobin 94.6 L Sodium Potassium Chloride 113.9 H Carbon Dioxide 17 L BUN 56 H Creatinine Glucose 114 H POC Glucose Lactic Acid Calcium 7.9 L Phosphorus Magnesium AST 1410 H ALT 934 H Alkaline Phosphatase 142 H Lactate Dehydrogenase Troponin T C-Reactive Protein NT-Pro-B Natriuret Pep Total Protein 5.0 L Albumin 2.6 L LDL Cholesterol Direct Vitamin B12 Fluid Glucose Fluid Total Protein Vancomycin Trough Crossmatch 11/07/21 11/07/21 11/07/21 03:30 04:50 08:07 WBC RBC Hgb Hct MCV MCH MCHC RDW Plt Count Seg Neuts % (Manual) Lymphocytes % (Manual) Seg Neutrophils # Man Lymphocytes # (Manual) Monocytes # (Manual) PT INR D-Dimer ABG pH ABG pO2 296.9 H ABG HCO3 18.1 L ABG O2 Saturation 99.5 H ABG Base Excess -5.9 L ABG Hemoglobin 7.6 L Oxyhemoglobin Sodium Potassium Chloride Carbon Dioxide BUN Creatinine Glucose POC Glucose 106 H 108 H Lactic Acid Calcium Phosphorus Magnesium AST ALT Alkaline Phosphatase Lactate Dehydrogenase Troponin T C-Reactive Protein NT-Pro-B Natriuret Pep Total Protein Albumin LDL Cholesterol Direct Vitamin B12 Fluid Glucose Fluid Total Protein Vancomycin Trough Crossmatch 0111/08/21 11/08/21 03:10 18:05 23:43 WBC RBC Hgb Hct MCV MCH MCHC RDW Plt Count Seg Neuts % (Manual) Lymphocytes % (Manual) Seg Neutrophils # Man Lymphocytes # (Manual) Monocytes # (Manual) PT INR D-Dimer ABG pH ABG pO2 127.4 H ABG HCO3 ABG O2 Saturation ABG Base Excess -3.4 L ABG Hemoglobin 7.4 L Oxyhemoglobin Sodium Potassium Chloride Carbon Dioxide BUN Creatinine Glucose POC Glucose 113 H 141 H Lactic Acid Calcium Phosphorus Magnesium AST ALT Alkaline Phosphatase Lactate Dehydrogenase Troponin T C-Reactive Protein NT-Pro-B Natriuret Pep Total Protein Albumin LDL Cholesterol Direct Vitamin B12 Fluid Glucose Fluid Total Protein Vancomycin Trough Crossmatch 11/08/21 11/08/21 11/09/21 Unknown Unknown 02:00 WBC 14.5 H RBC 3.35 L Hgb 7.5 L 8.1 L Hct 25.4 L 27.6 L MCV 76 L 76 L MCH 23 L 22 L MCHC RDW 19.9 H 19.9 H Plt Count Seg Neuts % (Manual) Lymphocytes % (Manual) Seg Neutrophils # Man Lymphocytes # (Manual) Monocytes # (Manual) PT INR D-Dimer ABG pH ABG pO2 ABG HCO3 ABG O2 Saturation ABG Base Excess ABG Hemoglobin Oxyhemoglobin Sodium 154 H D Potassium 3.3 L Chloride 120.7 H Carbon Dioxide 20 L BUN 38 H Creatinine Glucose POC Glucose Lactic Acid Calcium 8.3 L Phosphorus Magnesium AST ALT Alkaline Phosphatase Lactate Dehydrogenase Troponin T C-Reactive Protein NT-Pro-B Natriuret Pep Total Protein Albumin LDL Cholesterol Direct Vitamin B12 Fluid Glucose Fluid Total Protein Vancomycin Trough Crossmatch 11/09/21 11/09/21 11/09/21 02:00 02:31 05:12 WBC RBC Hgb Hct MCV MCH MCHC RDW Plt Count Seg Neuts % (Manual) Lymphocytes % (Manual) Seg Neutrophils # Man Lymphocytes # (Manual) Monocytes # (Manual) PT INR D-Dimer ABG pH 7.479 H ABG pO2 121.3 H ABG HCO3 ABG O2 Saturation ABG Base Excess ABG Hemoglobin 7.3 L Oxyhemoglobin Sodium Potassium Chloride 112.5 H Carbon Dioxide BUN 33 H Creatinine Glucose 161 H POC Glucose 135 H Lactic Acid Calcium Phosphorus Magnesium AST 251 H ALT 481 H Alkaline Phosphatase Lactate Dehydrogenase Troponin T C-Reactive Protein NT-Pro-B Natriuret Pep Total Protein 5.0 L Albumin 2.8 L LDL Cholesterol Direct Vitamin B12 Fluid Glucose Fluid Total Protein Vancomycin Trough Crossmatch 11/09/21 11/09/21 11/09/21 11:33 16:32 23:28 WBC RBC Hgb Hct MCV MCH MCHC RDW Plt Count Seg Neuts % (Manual) Lymphocytes % (Manual) Seg Neutrophils # Man Lymphocytes # (Manual) Monocytes # (Manual) PT INR D-Dimer ABG pH ABG pO2 ABG HCO3 ABG O2 Saturation ABG Base Excess ABG Hemoglobin Oxyhemoglobin Sodium Potassium Chloride Carbon Dioxide BUN Creatinine Glucose POC Glucose 132 H 133 H 143 H Lactic Acid Calcium Phosphorus Magnesium AST ALT Alkaline Phosphatase Lactate Dehydrogenase Troponin T C-Reactive Protein NT-Pro-B Natriuret Pep Total Protein Albumin LDL Cholesterol Direct Vitamin B12 Fluid Glucose Fluid Total Protein Vancomycin Trough Crossmatch 11/10/21 11/10/21 11/10/21 04:00 04:00 05:35 WBC 16.0 H RBC 3.61 L Hgb 8.0 L Hct 27.1 L MCV 75 L MCH 22 L MCHC RDW 20.4 H Plt Count Seg Neuts % (Manual) Lymphocytes % (Manual) Seg Neutrophils # Man Lymphocytes # (Manual) Monocytes # (Manual) PT INR D-Dimer ABG pH ABG pO2 ABG HCO3 ABG O2 Saturation ABG Base Excess ABG Hemoglobin Oxyhemoglobin Sodium 149 H Potassium Chloride 114.1 H Carbon Dioxide BUN 31 H Creatinine Glucose 148 H POC Glucose 132 H Lactic Acid Calcium 8.2 L Phosphorus Magnesium AST ALT Alkaline Phosphatase Lactate Dehydrogenase Troponin T C-Reactive Protein NT-Pro-B Natriuret Pep Total Protein Albumin LDL Cholesterol Direct Vitamin B12 Fluid Glucose Fluid Total Protein Vancomycin Trough Crossmatch 11/10/21 11/10/21 11/10/21 11:31 14:08 15:35 WBC RBC Hgb Hct MCV MCH MCHC RDW Plt Count Seg Neuts % (Manual) Lymphocytes % (Manual) Seg Neutrophils # Man Lymphocytes # (Manual) Monocytes # (Manual) PT INR D-Dimer ABG pH ABG pO2 126.6 H ABG HCO3 ABG O2 Saturation ABG Base Excess ABG Hemoglobin 7.4 L Oxyhemoglobin Sodium Potassium Chloride Carbon Dioxide BUN Creatinine Glucose POC Glucose 147 H Lactic Acid Calcium Phosphorus Magnesium AST ALT Alkaline Phosphatase Lactate Dehydrogenase Troponin T C-Reactive Protein NT-Pro-B Natriuret Pep Total Protein Albumin LDL Cholesterol Direct Vitamin B12 1823 H Fluid Glucose Fluid Total Protein Vancomycin Trough Crossmatch 11/10/21 11/11/21 11/11/21 17:53 00:55 04:28 WBC RBC Hgb Hct MCV MCH MCHC RDW Plt Count Seg Neuts % (Manual) Lymphocytes % (Manual) Seg Neutrophils # Man Lymphocytes # (Manual) Monocytes # (Manual) PT INR D-Dimer ABG pH ABG pO2 ABG HCO3 ABG O2 Saturation ABG Base Excess ABG Hemoglobin Oxyhemoglobin Sodium 149 H Potassium Chloride 112.2 H Carbon Dioxide BUN 34 H Creatinine Glucose 148 H POC Glucose 140 H 145 H Lactic Acid Calcium 7.9 L Phosphorus Magnesium AST 53 H ALT 203 H Alkaline Phosphatase Lactate Dehydrogenase Troponin T C-Reactive Protein NT-Pro-B Natriuret Pep Total Protein 4.9 L Albumin 2.6 L LDL Cholesterol Direct Vitamin B12 Fluid Glucose Fluid Total Protein Vancomycin Trough Crossmatch 11/11/21 11/11/21 11/11/21 04:28 04:28 05:28 WBC 20.9 H RBC 3.47 L Hgb 7.5 L Hct 26.0 L MCV 75 L MCH 22 L MCHC 29 L RDW 21.6 H Plt Count 132 L Seg Neuts % (Manual) Lymphocytes % (Manual) Seg Neutrophils # Man Lymphocytes # (Manual) Monocytes # (Manual) PT INR D-Dimer 2655.00 H ABG pH ABG pO2 ABG HCO3 ABG O2 Saturation ABG Base Excess ABG Hemoglobin Oxyhemoglobin Sodium Potassium Chloride Carbon Dioxide BUN Creatinine Glucose POC Glucose 154 H Lactic Acid Calcium Phosphorus Magnesium AST ALT Alkaline Phosphatase Lactate Dehydrogenase Troponin T C-Reactive Protein NT-Pro-B Natriuret Pep Total Protein Albumin LDL Cholesterol Direct Vitamin B12 Fluid Glucose Fluid Total Protein Vancomycin Trough Crossmatch 11/11/21 11/11/21 11/12/21 12:38 18:13 00:14 WBC RBC Hgb Hct MCV MCH MCHC RDW Plt Count Seg Neuts % (Manual) Lymphocytes % (Manual) Seg Neutrophils # Man Lymphocytes # (Manual) Monocytes # (Manual) PT INR D-Dimer ABG pH ABG pO2 ABG HCO3 ABG O2 Saturation ABG Base Excess ABG Hemoglobin Oxyhemoglobin Sodium Potassium Chloride Carbon Dioxide BUN Creatinine Glucose POC Glucose 137 H 108 H 137 H Lactic Acid Calcium Phosphorus Magnesium AST ALT Alkaline Phosphatase Lactate Dehydrogenase Troponin T C-Reactive Protein NT-Pro-B Natriuret Pep Total Protein Albumin LDL Cholesterol Direct Vitamin B12 Fluid Glucose Fluid Total Protein Vancomycin Trough Crossmatch 11/12/21 11/12/21 11/12/21 05:40 06:24 11:12 WBC RBC Hgb Hct MCV MCH MCHC RDW Plt Count Seg Neuts % (Manual) Lymphocytes % (Manual) Seg Neutrophils # Man Lymphocytes # (Manual) Monocytes # (Manual) PT INR D-Dimer ABG pH 7.586 H ABG pO2 150.6 H ABG HCO3 27.2 H ABG O2 Saturation 99.1 H ABG Base Excess 5.2 H ABG Hemoglobin 7.5 L Oxyhemoglobin Sodium Potassium Chloride Carbon Dioxide BUN Creatinine Glucose POC Glucose 132 H 140 H Lactic Acid Calcium Phosphorus Magnesium AST ALT Alkaline Phosphatase Lactate Dehydrogenase Troponin T C-Reactive Protein NT-Pro-B Natriuret Pep Total Protein Albumin LDL Cholesterol Direct Vitamin B12 Fluid Glucose Fluid Total Protein Vancomycin Trough Crossmatch 11/12/21 11/12/21 11/12/21 14:50 14:50 17:13 WBC 19.8 H RBC 3.27 L Hgb 7.1 L Hct 24.5 L MCV 75 L MCH 22 L MCHC 29 L RDW 22.3 H Plt Count Seg Neuts % (Manual) Lymphocytes % (Manual) Seg Neutrophils # Man Lymphocytes # (Manual) Monocytes # (Manual) PT INR D-Dimer ABG pH ABG pO2 ABG HCO3 ABG O2 Saturation ABG Base Excess ABG Hemoglobin Oxyhemoglobin Sodium 150 H Potassium 3.3 L Chloride 112.0 H Carbon Dioxide BUN 40 H Creatinine Glucose 151 H POC Glucose 121 H Lactic Acid Calcium 7.4 L Phosphorus 1.70 L Magnesium 1.40 L AST ALT Alkaline Phosphatase Lactate Dehydrogenase Troponin T C-Reactive Protein NT-Pro-B Natriuret Pep Total Protein Albumin LDL Cholesterol Direct Vitamin B12 Fluid Glucose Fluid Total Protein Vancomycin Trough Crossmatch 11/12/21 11/13/21 11/13/21 23:19 05:34 06:30 WBC RBC Hgb Hct MCV MCH MCHC RDW Plt Count Seg Neuts % (Manual) Lymphocytes % (Manual) Seg Neutrophils # Man Lymphocytes # (Manual) Monocytes # (Manual) PT INR D-Dimer ABG pH ABG pO2 ABG HCO3 ABG O2 Saturation ABG Base Excess ABG Hemoglobin Oxyhemoglobin Sodium 149 H Potassium Chloride 60.0 L Carbon Dioxide BUN 40 H Creatinine Glucose 146 H POC Glucose 113 H 132 H Lactic Acid Calcium 7.3 L Phosphorus Magnesium 2.40 H AST ALT 72 H Alkaline Phosphatase Lactate Dehydrogenase Troponin T C-Reactive Protein NT-Pro-B Natriuret Pep Total Protein 5.2 L Albumin 2.2 L LDL Cholesterol Direct Vitamin B12 Fluid Glucose Fluid Total Protein Vancomycin Trough Crossmatch 11/13/21 11/13/21 11/13/21 06:30 08:30 11:19 WBC 21.2 H RBC 3.12 L Hgb 6.8 L Hct 23.2 L MCV 74 L MCH 22 L MCHC 29 L RDW 22.2 H Plt Count 135 L Seg Neuts % (Manual) Lymphocytes % (Manual) Seg Neutrophils # Man Lymphocytes # (Manual) Monocytes # (Manual) PT INR D-Dimer ABG pH ABG pO2 ABG HCO3 ABG O2 Saturation ABG Base Excess ABG Hemoglobin Oxyhemoglobin Sodium Potassium Chloride Carbon Dioxide BUN Creatinine Glucose POC Glucose 136 H Lactic Acid Calcium Phosphorus Magnesium AST ALT Alkaline Phosphatase Lactate Dehydrogenase Troponin T C-Reactive Protein NT-Pro-B Natriuret Pep Total Protein Albumin LDL Cholesterol Direct Vitamin B12 Fluid Glucose Fluid Total Protein Vancomycin Trough Crossmatch See Detail 11/13/21 11/14/21 11/14/21 18:21 00:01 04:46 WBC 20.0 H RBC 3.41 L Hgb 7.9 L Hct 26.8 L MCV MCH 23 L MCHC 29 L RDW 24.0 H Plt Count Seg Neuts % (Manual) Lymphocytes % (Manual) Seg Neutrophils # Man Lymphocytes # (Manual) Monocytes # (Manual) PT INR D-Dimer ABG pH ABG pO2 ABG HCO3 ABG O2 Saturation ABG Base Excess ABG Hemoglobin Oxyhemoglobin Sodium Potassium Chloride Carbon Dioxide BUN Creatinine Glucose POC Glucose 149 H 141 H Lactic Acid Calcium Phosphorus Magnesium AST ALT Alkaline Phosphatase Lactate Dehydrogenase Troponin T C-Reactive Protein NT-Pro-B Natriuret Pep Total Protein Albumin LDL Cholesterol Direct Vitamin B12 Fluid Glucose Fluid Total Protein Vancomycin Trough Crossmatch 11/14/21 11/14/21 11/14/21 04:46 05:10 11:10 WBC RBC Hgb Hct MCV MCH MCHC RDW Plt Count Seg Neuts % (Manual) Lymphocytes % (Manual) Seg Neutrophils # Man Lymphocytes # (Manual) Monocytes # (Manual) PT INR D-Dimer ABG pH ABG pO2 ABG HCO3 ABG O2 Saturation ABG Base Excess ABG Hemoglobin Oxyhemoglobin Sodium 148 H Potassium Chloride 113.1 H Carbon Dioxide BUN 43 H Creatinine Glucose 140 H POC Glucose 132 H 133 H Lactic Acid Calcium 7.5 L Phosphorus Magnesium AST ALT Alkaline Phosphatase Lactate Dehydrogenase Troponin T C-Reactive Protein NT-Pro-B Natriuret Pep Total Protein Albumin LDL Cholesterol Direct Vitamin B12 Fluid Glucose Fluid Total Protein Vancomycin Trough Crossmatch 11/14/21 11/14/21 11/14/21 16:14 17:48 23:23 WBC RBC Hgb Hct MCV MCH MCHC RDW Plt Count Seg Neuts % (Manual) Lymphocytes % (Manual) Seg Neutrophils # Man Lymphocytes # (Manual) Monocytes # (Manual) PT INR D-Dimer ABG pH ABG pO2 ABG HCO3 28.0 H ABG O2 Saturation ABG Base Excess 3.1 H ABG Hemoglobin 5.8 L Oxyhemoglobin 94.8 L Sodium Potassium Chloride Carbon Dioxide BUN Creatinine Glucose POC Glucose 130 H 136 H Lactic Acid Calcium Phosphorus Magnesium AST ALT Alkaline Phosphatase Lactate Dehydrogenase Troponin T C-Reactive Protein NT-Pro-B Natriuret Pep Total Protein Albumin LDL Cholesterol Direct Vitamin B12 Fluid Glucose Fluid Total Protein Vancomycin Trough Crossmatch 11/15/21 11/15/21 11/15/21 05:20 05:50 05:50 WBC 19.9 H RBC 3.50 L Hgb 8.2 L Hct 27.9 L MCV MCH 23 L MCHC 29 L RDW 24.9 H Plt Count Seg Neuts % (Manual) Lymphocytes % (Manual) Seg Neutrophils # Man Lymphocytes # (Manual) Monocytes # (Manual) PT INR D-Dimer ABG pH ABG pO2 ABG HCO3 ABG O2 Saturation ABG Base Excess ABG Hemoglobin Oxyhemoglobin Sodium 149 H Potassium Chloride 112.0 H Carbon Dioxide BUN 48 H Creatinine Glucose 152 H POC Glucose 137 H Lactic Acid Calcium 7.9 L Phosphorus Magnesium AST ALT Alkaline Phosphatase Lactate Dehydrogenase Troponin T C-Reactive Protein NT-Pro-B Natriuret Pep Total Protein Albumin LDL Cholesterol Direct Vitamin B12 Fluid Glucose Fluid Total Protein Vancomycin Trough Crossmatch 11/15/21 11/15/21 11/15/21 12:12 17:07 23:24 WBC RBC Hgb Hct MCV MCH MCHC RDW Plt Count Seg Neuts % (Manual) Lymphocytes % (Manual) Seg Neutrophils # Man Lymphocytes # (Manual) Monocytes # (Manual) PT INR D-Dimer ABG pH ABG pO2 ABG HCO3 ABG O2 Saturation ABG Base Excess ABG Hemoglobin Oxyhemoglobin Sodium Potassium Chloride Carbon Dioxide BUN Creatinine Glucose POC Glucose 114 H 135 H 123 H Lactic Acid Calcium Phosphorus Magnesium AST ALT Alkaline Phosphatase Lactate Dehydrogenase Troponin T C-Reactive Protein NT-Pro-B Natriuret Pep Total Protein Albumin LDL Cholesterol Direct Vitamin B12 Fluid Glucose Fluid Total Protein Vancomycin Trough Crossmatch 11/16/21 11/16/21 11/16/21 05:21 10:00 10:00 WBC 21.7 H RBC 2.57 L Hgb 6.0 L Hct 20.2 L D MCV MCH 24 L MCHC RDW 26.3 H Plt Count Seg Neuts % (Manual) Lymphocytes % (Manual) Seg Neutrophils # Man Lymphocytes # (Manual) Monocytes # (Manual) PT INR D-Dimer ABG pH ABG pO2 ABG HCO3 ABG O2 Saturation ABG Base Excess ABG Hemoglobin Oxyhemoglobin Sodium 153 H Potassium Chloride 114.9 H Carbon Dioxide BUN 74 H Creatinine Glucose 155 H POC Glucose 127 H Lactic Acid Calcium 8.1 L Phosphorus Magnesium AST ALT Alkaline Phosphatase Lactate Dehydrogenase Troponin T C-Reactive Protein NT-Pro-B Natriuret Pep Total Protein Albumin LDL Cholesterol Direct Vitamin B12 Fluid Glucose Fluid Total Protein Vancomycin Trough Crossmatch 11/16/21 11/16/21 11/16/21 11:34 14:00 15:25 WBC 17.2 H RBC 2.08 L Hgb 4.7 L* Hct 16.2 L* MCV 78 L MCH 23 L MCHC 29 L RDW 26.0 H Plt Count Seg Neuts % (Manual) 87.0 H Lymphocytes % (Manual) 8.0 L Seg Neutrophils # Man 15.0 H Lymphocytes # (Manual) Monocytes # (Manual) 0.9 H PT INR D-Dimer ABG pH ABG pO2 ABG HCO3 ABG O2 Saturation ABG Base Excess ABG Hemoglobin Oxyhemoglobin Sodium Potassium Chloride Carbon Dioxide BUN Creatinine Glucose POC Glucose 131 H Lactic Acid Calcium Phosphorus Magnesium AST ALT Alkaline Phosphatase Lactate Dehydrogenase Troponin T C-Reactive Protein NT-Pro-B Natriuret Pep Total Protein Albumin LDL Cholesterol Direct Vitamin B12 Fluid Glucose Fluid Total Protein Vancomycin Trough Crossmatch See Detail 11/16/21 11/16/21 11/16/21 15:25 17:21 22:43 WBC RBC Hgb 8.6 L D Hct 27.7 L D MCV MCH MCHC RDW Plt Count Seg Neuts % (Manual) Lymphocytes % (Manual) Seg Neutrophils # Man Lymphocytes # (Manual) Monocytes # (Manual) PT INR D-Dimer ABG pH ABG pO2 ABG HCO3 ABG O2 Saturation ABG Base Excess ABG Hemoglobin Oxyhemoglobin Sodium 148 H Potassium Chloride 113.2 H Carbon Dioxide BUN 84 H Creatinine Glucose 164 H POC Glucose 124 H Lactic Acid Calcium 7.6 L Phosphorus Magnesium AST ALT Alkaline Phosphatase Lactate Dehydrogenase Troponin T C-Reactive Protein NT-Pro-B Natriuret Pep Total Protein Albumin LDL Cholesterol Direct Vitamin B12 Fluid Glucose Fluid Total Protein Vancomycin Trough Crossmatch 11/16/21 11/17/21 11/17/21 23:07 05:33 05:56 WBC 25.1 H RBC 3.47 L Hgb 8.7 L Hct 28.5 L MCV MCH 25 L MCHC RDW 22.3 H Plt Count Seg Neuts % (Manual) Lymphocytes % (Manual) Seg Neutrophils # Man Lymphocytes # (Manual) Monocytes # (Manual) PT INR D-Dimer ABG pH ABG pO2 ABG HCO3 ABG O2 Saturation ABG Base Excess ABG Hemoglobin Oxyhemoglobin Sodium Potassium Chloride Carbon Dioxide BUN Creatinine Glucose POC Glucose 128 H 133 H Lactic Acid Calcium Phosphorus Magnesium AST ALT Alkaline Phosphatase Lactate Dehydrogenase Troponin T C-Reactive Protein NT-Pro-B Natriuret Pep Total Protein Albumin LDL Cholesterol Direct Vitamin B12 Fluid Glucose Fluid Total Protein Vancomycin Trough Crossmatch 11/17/21 11/17/21 11/17/21 05:56 11:00 11:55 WBC RBC Hgb 8.3 L Hct 26.9 L MCV MCH MCHC RDW Plt Count Seg Neuts % (Manual) Lymphocytes % (Manual) Seg Neutrophils # Man Lymphocytes # (Manual) Monocytes # (Manual) PT INR D-Dimer ABG pH ABG pO2 ABG HCO3 ABG O2 Saturation ABG Base Excess ABG Hemoglobin Oxyhemoglobin Sodium 151 H Potassium Chloride 113.6 H Carbon Dioxide BUN 85 H Creatinine Glucose 132 H POC Glucose 121 H Lactic Acid Calcium 7.8 L Phosphorus Magnesium AST ALT Alkaline Phosphatase Lactate Dehydrogenase Troponin T C-Reactive Protein NT-Pro-B Natriuret Pep Total Protein 5.1 L Albumin 2.2 L LDL Cholesterol Direct Vitamin B12 Fluid Glucose Fluid Total Protein Vancomycin Trough Crossmatch 11/17/21 11/17/21 11/18/21 18:04 18:55 00:26 WBC RBC Hgb 7.5 L 7.1 L Hct 24.8 L 23.6 L MCV MCH MCHC RDW Plt Count Seg Neuts % (Manual) Lymphocytes % (Manual) Seg Neutrophils # Man Lymphocytes # (Manual) Monocytes # (Manual) PT INR D-Dimer ABG pH ABG pO2 ABG HCO3 ABG O2 Saturation ABG Base Excess ABG Hemoglobin Oxyhemoglobin Sodium Potassium Chloride Carbon Dioxide BUN Creatinine Glucose POC Glucose 144 H Lactic Acid Calcium Phosphorus Magnesium AST ALT Alkaline Phosphatase Lactate Dehydrogenase Troponin T C-Reactive Protein NT-Pro-B Natriuret Pep Total Protein Albumin LDL Cholesterol Direct Vitamin B12 Fluid Glucose Fluid Total Protein Vancomycin Trough Crossmatch 11/18/21 11/18/21 11/18/21 00:43 05:10 05:10 WBC 12.5 H RBC 2.39 L Hgb 6.1 L Hct 20.2 L MCV MCH 25 L MCHC RDW 23.2 H Plt Count Seg Neuts % (Manual) Lymphocytes % (Manual) Seg Neutrophils # Man Lymphocytes # (Manual) Monocytes # (Manual) PT INR D-Dimer ABG pH ABG pO2 ABG HCO3 ABG O2 Saturation ABG Base Excess ABG Hemoglobin Oxyhemoglobin Sodium 131 L D Potassium 2.9 L* D Chloride 97.8 L Carbon Dioxide BUN 58 H Creatinine Glucose 665 H* POC Glucose 139 H Lactic Acid Calcium 7.0 L Phosphorus 2.20 L D Magnesium 1.50 L AST ALT Alkaline Phosphatase Lactate Dehydrogenase Troponin T C-Reactive Protein NT-Pro-B Natriuret Pep Total Protein Albumin LDL Cholesterol Direct Vitamin B12 Fluid Glucose Fluid Total Protein Vancomycin Trough Crossmatch 11/18/21 11/18/21 11/18/21 05:23 07:10 10:45 WBC RBC Hgb Hct MCV MCH MCHC RDW Plt Count Seg Neuts % (Manual) Lymphocytes % (Manual) Seg Neutrophils # Man Lymphocytes # (Manual) Monocytes # (Manual) PT INR D-Dimer ABG pH ABG pO2 ABG HCO3 ABG O2 Saturation ABG Base Excess ABG Hemoglobin Oxyhemoglobin Sodium 148 H D Potassium 3.1 L Chloride 111.9 H Carbon Dioxide BUN 63 H Creatinine Glucose 141 H POC Glucose 124 H Lactic Acid Calcium 8.1 L D Phosphorus Magnesium AST ALT Alkaline Phosphatase Lactate Dehydrogenase Troponin T C-Reactive Protein NT-Pro-B Natriuret Pep Total Protein Albumin LDL Cholesterol Direct Vitamin B12 Fluid Glucose Fluid Total Protein Vancomycin Trough Crossmatch See Detail 11/18/21 11/19/21 11/19/21 11:57 00:19 04:55 WBC RBC 3.35 L Hgb 9.0 L 8.9 L Hct 28.3 L D 28.1 L MCV MCH 27 L MCHC RDW 20.3 H Plt Count Seg Neuts % (Manual) Lymphocytes % (Manual) Seg Neutrophils # Man Lymphocytes # (Manual) Monocytes # (Manual) PT INR D-Dimer ABG pH ABG pO2 ABG HCO3 ABG O2 Saturation ABG Base Excess ABG Hemoglobin Oxyhemoglobin Sodium Potassium Chloride Carbon Dioxide BUN Creatinine Glucose POC Glucose 119 H Lactic Acid Calcium Phosphorus Magnesium AST ALT Alkaline Phosphatase Lactate Dehydrogenase Troponin T C-Reactive Protein NT-Pro-B Natriuret Pep Total Protein Albumin LDL Cholesterol Direct Vitamin B12 Fluid Glucose Fluid Total Protein Vancomycin Trough Crossmatch 11/19/21 11/19/21 11/20/21 04:55 05:42 00:55 WBC RBC Hgb 9.0 L Hct 28.6 L MCV MCH MCHC RDW Plt Count Seg Neuts % (Manual) Lymphocytes % (Manual) Seg Neutrophils # Man Lymphocytes # (Manual) Monocytes # (Manual) PT INR D-Dimer ABG pH ABG pO2 ABG HCO3 ABG O2 Saturation ABG Base Excess ABG Hemoglobin Oxyhemoglobin Sodium Potassium 3.5 L Chloride 108.6 H Carbon Dioxide BUN 47 H Creatinine Glucose 207 H POC Glucose 63 L Lactic Acid Calcium 7.1 L Phosphorus Magnesium AST ALT Alkaline Phosphatase Lactate Dehydrogenase Troponin T C-Reactive Protein NT-Pro-B Natriuret Pep Total Protein Albumin LDL Cholesterol Direct Vitamin B12 Fluid Glucose Fluid Total Protein Vancomycin Trough Crossmatch 11/20/21 11/20/21 11/20/21 05:40 05:40 Unknown WBC RBC 3.40 L Hgb 9.1 L Hct 28.8 L MCV MCH 27 L MCHC RDW 20.7 H Plt Count Seg Neuts % (Manual) Lymphocytes % (Manual) Seg Neutrophils # Man Lymphocytes # (Manual) Monocytes # (Manual) PT INR D-Dimer ABG pH ABG pO2 ABG HCO3 ABG O2 Saturation ABG Base Excess -2.7 L ABG Hemoglobin 9.5 L Oxyhemoglobin 94.3 L Sodium Potassium 3.5 L Chloride 108.9 H Carbon Dioxide BUN 37 H Creatinine Glucose 117 H POC Glucose Lactic Acid Calcium 7.5 L Phosphorus Magnesium AST ALT Alkaline Phosphatase Lactate Dehydrogenase Troponin T C-Reactive Protein NT-Pro-B Natriuret Pep Total Protein Albumin LDL Cholesterol Direct Vitamin B12 Fluid Glucose Fluid Total Protein Vancomycin Trough Crossmatch 11/21/21 11/21/21 11/21/21 04:30 04:30 16:00 WBC RBC 3.25 L Hgb 8.6 L Hct 28.1 L MCV MCH 26 L MCHC RDW 20.7 H Plt Count Seg Neuts % (Manual) Lymphocytes % (Manual) Seg Neutrophils # Man Lymphocytes # (Manual) Monocytes # (Manual) PT INR D-Dimer ABG pH ABG pO2 114.2 H ABG HCO3 ABG O2 Saturation ABG Base Excess ABG Hemoglobin 9.1 L Oxyhemoglobin Sodium 134 L Potassium Chloride Carbon Dioxide 20 L BUN 34 H Creatinine Glucose POC Glucose Lactic Acid Calcium 7.1 L Phosphorus Magnesium AST ALT Alkaline Phosphatase Lactate Dehydrogenase Troponin T C-Reactive Protein NT-Pro-B Natriuret Pep Total Protein Albumin LDL Cholesterol Direct Vitamin B12 Fluid Glucose Fluid Total Protein Vancomycin Trough Crossmatch 11/22/21 11/22/21 11/22/21 07:07 07:07 23:54 WBC RBC 3.30 L Hgb 9.0 L Hct 28.5 L MCV MCH 27 L MCHC RDW 21.0 H Plt Count Seg Neuts % (Manual) Lymphocytes % (Manual) Seg Neutrophils # Man Lymphocytes # (Manual) Monocytes # (Manual) PT INR D-Dimer ABG pH ABG pO2 ABG HCO3 ABG O2 Saturation ABG Base Excess ABG Hemoglobin Oxyhemoglobin Sodium Potassium Chloride Carbon Dioxide BUN 32 H Creatinine Glucose 106 H POC Glucose 110 H Lactic Acid Calcium 7.5 L Phosphorus Magnesium AST ALT Alkaline Phosphatase Lactate Dehydrogenase Troponin T C-Reactive Protein NT-Pro-B Natriuret Pep Total Protein Albumin LDL Cholesterol Direct Vitamin B12 Fluid Glucose Fluid Total Protein Vancomycin Trough Crossmatch 11/23/21 11/23/21 11/23/21 04:38 04:38 06:01 WBC RBC 3.23 L Hgb 8.8 L Hct 28.0 L MCV MCH 27 L MCHC RDW 21.3 H Plt Count Seg Neuts % (Manual) Lymphocytes % (Manual) Seg Neutrophils # Man Lymphocytes # (Manual) Monocytes # (Manual) PT INR D-Dimer ABG pH ABG pO2 ABG HCO3 ABG O2 Saturation ABG Base Excess ABG Hemoglobin Oxyhemoglobin Sodium 136 L Potassium Chloride Carbon Dioxide 20 L BUN 32 H Creatinine Glucose 109 H POC Glucose 115 H Lactic Acid Calcium 7.7 L Phosphorus Magnesium AST ALT Alkaline Phosphatase Lactate Dehydrogenase Troponin T C-Reactive Protein NT-Pro-B Natriuret Pep Total Protein Albumin LDL Cholesterol Direct Vitamin B12 Fluid Glucose Fluid Total Protein Vancomycin Trough Crossmatch 11/23/21 11/24/21 11/24/21 11:40 00:03 04:13 WBC RBC 3.18 L Hgb 8.5 L Hct 27.5 L MCV MCH 27 L MCHC RDW 21.6 H Plt Count Seg Neuts % (Manual) Lymphocytes % (Manual) Seg Neutrophils # Man Lymphocytes # (Manual) Monocytes # (Manual) PT INR D-Dimer ABG pH ABG pO2 ABG HCO3 ABG O2 Saturation ABG Base Excess ABG Hemoglobin Oxyhemoglobin Sodium Potassium Chloride Carbon Dioxide BUN Creatinine Glucose POC Glucose 117 H 111 H Lactic Acid Calcium Phosphorus Magnesium AST ALT Alkaline Phosphatase Lactate Dehydrogenase Troponin T C-Reactive Protein NT-Pro-B Natriuret Pep Total Protein Albumin LDL Cholesterol Direct Vitamin B12 Fluid Glucose Fluid Total Protein Vancomycin Trough Crossmatch 11/24/21 11/24/21 11/24/21 04:13 05:30 11:10 WBC RBC Hgb Hct MCV MCH MCHC RDW Plt Count Seg Neuts % (Manual) Lymphocytes % (Manual) Seg Neutrophils # Man Lymphocytes # (Manual) Monocytes # (Manual) PT INR D-Dimer ABG pH ABG pO2 ABG HCO3 ABG O2 Saturation ABG Base Excess ABG Hemoglobin Oxyhemoglobin Sodium Potassium Chloride Carbon Dioxide BUN 31 H Creatinine Glucose 101 H POC Glucose 115 H 107 H Lactic Acid Calcium 7.7 L Phosphorus Magnesium AST ALT Alkaline Phosphatase Lactate Dehydrogenase Troponin T C-Reactive Protein NT-Pro-B Natriuret Pep Total Protein Albumin LDL Cholesterol Direct Vitamin B12 Fluid Glucose Fluid Total Protein Vancomycin Trough Crossmatch 11/24/21 11/24/21 11/25/21 16:34 17:57 05:12 WBC RBC 3.11 L Hgb 8.2 L Hct 26.6 L MCV MCH 26 L MCHC RDW 21.3 H Plt Count Seg Neuts % (Manual) Lymphocytes % (Manual) Seg Neutrophils # Man Lymphocytes # (Manual) Monocytes # (Manual) PT INR D-Dimer ABG pH ABG pO2 ABG HCO3 ABG O2 Saturation ABG Base Excess ABG Hemoglobin Oxyhemoglobin Sodium Potassium Chloride Carbon Dioxide BUN Creatinine Glucose POC Glucose 115 H 110 H Lactic Acid Calcium Phosphorus Magnesium AST ALT Alkaline Phosphatase Lactate Dehydrogenase Troponin T C-Reactive Protein NT-Pro-B Natriuret Pep Total Protein Albumin LDL Cholesterol Direct Vitamin B12 Fluid Glucose Fluid Total Protein Vancomycin Trough Crossmatch 11/25/21 11/25/21 11/26/21 05:12 11:20 05:00 WBC RBC 3.30 L Hgb 8.8 L Hct 28.2 L MCV MCH 27 L MCHC RDW 20.7 H Plt Count Seg Neuts % (Manual) Lymphocytes % (Manual) Seg Neutrophils # Man Lymphocytes # (Manual) Monocytes # (Manual) PT INR D-Dimer ABG pH ABG pO2 ABG HCO3 ABG O2 Saturation ABG Base Excess ABG Hemoglobin Oxyhemoglobin Sodium Potassium Chloride Carbon Dioxide BUN 32 H Creatinine Glucose 118 H POC Glucose 118 H Lactic Acid Calcium 8.2 L Phosphorus Magnesium AST ALT Alkaline Phosphatase Lactate Dehydrogenase Troponin T C-Reactive Protein NT-Pro-B Natriuret Pep Total Protein Albumin LDL Cholesterol Direct Vitamin B12 Fluid Glucose Fluid Total Protein Vancomycin Trough Crossmatch 11/26/21 11/26/21 11/26/21 05:00 05:00 05:44 WBC RBC Hgb Hct MCV MCH MCHC RDW Plt Count Seg Neuts % (Manual) Lymphocytes % (Manual) Seg Neutrophils # Man Lymphocytes # (Manual) Monocytes # (Manual) PT 16.9 H INR 1.24 H D-Dimer ABG pH ABG pO2 ABG HCO3 ABG O2 Saturation ABG Base Excess ABG Hemoglobin Oxyhemoglobin Sodium Potassium Chloride Carbon Dioxide BUN 31 H Creatinine Glucose 104 H POC Glucose 110 H Lactic Acid Calcium 7.9 L Phosphorus Magnesium AST ALT Alkaline Phosphatase Lactate Dehydrogenase Troponin T C-Reactive Protein NT-Pro-B Natriuret Pep Total Protein Albumin LDL Cholesterol Direct Vitamin B12 Fluid Glucose Fluid Total Protein Vancomycin Trough Crossmatch 11/26/21 11/27/21 11/27/21 23:55 07:40 07:40 WBC RBC 3.18 L Hgb 8.5 L Hct 27.0 L MCV MCH 27 L MCHC RDW 21.2 H Plt Count Seg Neuts % (Manual) Lymphocytes % (Manual) Seg Neutrophils # Man Lymphocytes # (Manual) Monocytes # (Manual) PT INR D-Dimer ABG pH ABG pO2 ABG HCO3 ABG O2 Saturation ABG Base Excess ABG Hemoglobin Oxyhemoglobin Sodium Potassium Chloride Carbon Dioxide BUN 27 H Creatinine Glucose 112 H POC Glucose 63 L Lactic Acid Calcium 7.6 L Phosphorus Magnesium AST ALT Alkaline Phosphatase Lactate Dehydrogenase Troponin T C-Reactive Protein NT-Pro-B Natriuret Pep Total Protein Albumin LDL Cholesterol Direct Vitamin B12 Fluid Glucose Fluid Total Protein Vancomycin Trough Crossmatch 11/27/21 11/27/21 11/27/21 12:04 13:40 13:40 WBC RBC 3.31 L Hgb 8.7 L Hct 28.0 L MCV MCH 26 L MCHC RDW 20.7 H Plt Count Seg Neuts % (Manual) Lymphocytes % (Manual) Seg Neutrophils # Man Lymphocytes # (Manual) Monocytes # (Manual) PT INR D-Dimer ABG pH ABG pO2 ABG HCO3 ABG O2 Saturation ABG Base Excess ABG Hemoglobin Oxyhemoglobin Sodium 136 L Potassium Chloride Carbon Dioxide BUN 25 H Creatinine Glucose 127 H POC Glucose 109 H Lactic Acid Calcium 7.6 L Phosphorus Magnesium 1.40 L AST ALT Alkaline Phosphatase Lactate Dehydrogenase Troponin T C-Reactive Protein NT-Pro-B Natriuret Pep Total Protein Albumin LDL Cholesterol Direct Vitamin B12 Fluid Glucose Fluid Total Protein Vancomycin Trough Crossmatch 11/27/21 11/27/21 11/28/21 17:44 23:33 12:20 WBC RBC Hgb Hct MCV MCH MCHC RDW Plt Count Seg Neuts % (Manual) Lymphocytes % (Manual) Seg Neutrophils # Man Lymphocytes # (Manual) Monocytes # (Manual) PT INR D-Dimer ABG pH ABG pO2 ABG HCO3 ABG O2 Saturation ABG Base Excess ABG Hemoglobin Oxyhemoglobin Sodium Potassium Chloride Carbon Dioxide BUN Creatinine Glucose POC Glucose 107 H 108 H 114 H Lactic Acid Calcium Phosphorus Magnesium AST ALT Alkaline Phosphatase Lactate Dehydrogenase Troponin T C-Reactive Protein NT-Pro-B Natriuret Pep Total Protein Albumin LDL Cholesterol Direct Vitamin B12 Fluid Glucose Fluid Total Protein Vancomycin Trough Crossmatch 11/29/21 11/29/21 11/29/21 00:09 03:20 03:20 WBC RBC 3.05 L Hgb 8.2 L Hct 25.8 L MCV MCH 27 L MCHC RDW 20.9 H Plt Count Seg Neuts % (Manual) Lymphocytes % (Manual) Seg Neutrophils # Man Lymphocytes # (Manual) Monocytes # (Manual) PT INR D-Dimer ABG pH ABG pO2 ABG HCO3 ABG O2 Saturation ABG Base Excess ABG Hemoglobin Oxyhemoglobin Sodium 133 L Potassium Chloride Carbon Dioxide BUN 24 H Creatinine Glucose 137 H POC Glucose 134 H Lactic Acid Calcium 7.4 L Phosphorus Magnesium AST ALT Alkaline Phosphatase Lactate Dehydrogenase Troponin T C-Reactive Protein NT-Pro-B Natriuret Pep Total Protein Albumin LDL Cholesterol Direct Vitamin B12 Fluid Glucose Fluid Total Protein Vancomycin Trough Crossmatch 11/29/21 11/29/21 11/29/21 05:38 11:39 17:11 WBC RBC Hgb Hct MCV MCH MCHC RDW Plt Count Seg Neuts % (Manual) Lymphocytes % (Manual) Seg Neutrophils # Man Lymphocytes # (Manual) Monocytes # (Manual) PT INR D-Dimer ABG pH ABG pO2 ABG HCO3 ABG O2 Saturation ABG Base Excess ABG Hemoglobin Oxyhemoglobin Sodium Potassium Chloride Carbon Dioxide BUN Creatinine Glucose POC Glucose 117 H 143 H 124 H Lactic Acid Calcium Phosphorus Magnesium AST ALT Alkaline Phosphatase Lactate Dehydrogenase Troponin T C-Reactive Protein NT-Pro-B Natriuret Pep Total Protein Albumin LDL Cholesterol Direct Vitamin B12 Fluid Glucose Fluid Total Protein Vancomycin Trough Crossmatch 11/29/21 11/30/21 11/30/21 20:15 05:40 05:40 WBC 12.6 H RBC 3.41 L Hgb 9.1 L Hct 28.9 L MCV MCH 27 L MCHC RDW 20.4 H Plt Count Seg Neuts % (Manual) Lymphocytes % (Manual) Seg Neutrophils # Man Lymphocytes # (Manual) Monocytes # (Manual) PT INR D-Dimer ABG pH ABG pO2 ABG HCO3 ABG O2 Saturation ABG Base Excess ABG Hemoglobin Oxyhemoglobin Sodium Potassium Chloride Carbon Dioxide BUN 24 H Creatinine Glucose 131 H POC Glucose Lactic Acid Calcium 7.6 L Phosphorus Magnesium AST ALT Alkaline Phosphatase Lactate Dehydrogenase Troponin T 0.045 H C-Reactive Protein NT-Pro-B Natriuret Pep Total Protein Albumin LDL Cholesterol Direct 25 L Vitamin B12 Fluid Glucose Fluid Total Protein Vancomycin Trough Crossmatch 11/30/21 11/30/21 12/01/21 11:29 16:51 05:00 WBC RBC 2.97 L Hgb 8.0 L Hct 25.0 L MCV MCH 27 L MCHC RDW 20.8 H Plt Count Seg Neuts % (Manual) Lymphocytes % (Manual) Seg Neutrophils # Man Lymphocytes # (Manual) Monocytes # (Manual) PT INR D-Dimer ABG pH ABG pO2 ABG HCO3 ABG O2 Saturation ABG Base Excess ABG Hemoglobin Oxyhemoglobin Sodium Potassium Chloride Carbon Dioxide BUN Creatinine Glucose POC Glucose 123 H 114 H Lactic Acid Calcium Phosphorus Magnesium AST ALT Alkaline Phosphatase Lactate Dehydrogenase Troponin T C-Reactive Protein NT-Pro-B Natriuret Pep Total Protein Albumin LDL Cholesterol Direct Vitamin B12 Fluid Glucose Fluid Total Protein Vancomycin Trough Crossmatch 12/01/21 12/01/21 12/01/21 05:00 05:25 11:54 WBC RBC Hgb Hct MCV MCH MCHC RDW Plt Count Seg Neuts % (Manual) Lymphocytes % (Manual) Seg Neutrophils # Man Lymphocytes # (Manual) Monocytes # (Manual) PT INR D-Dimer ABG pH ABG pO2 ABG HCO3 ABG O2 Saturation ABG Base Excess ABG Hemoglobin Oxyhemoglobin Sodium 136 L Potassium Chloride Carbon Dioxide BUN 24 H Creatinine Glucose 117 H POC Glucose 108 H 107 H Lactic Acid Calcium 7.5 L Phosphorus Magnesium 1.60 L AST ALT Alkaline Phosphatase Lactate Dehydrogenase Troponin T C-Reactive Protein NT-Pro-B Natriuret Pep Total Protein Albumin LDL Cholesterol Direct Vitamin B12 Fluid Glucose Fluid Total Protein Vancomycin Trough Crossmatch 12/01/21 12/02/21 12/02/21 17:40 00:07 04:20 WBC RBC 2.92 L Hgb 7.7 L Hct 24.3 L MCV MCH 26 L MCHC RDW 20.5 H Plt Count Seg Neuts % (Manual) Lymphocytes % (Manual) Seg Neutrophils # Man Lymphocytes # (Manual) Monocytes # (Manual) PT INR D-Dimer ABG pH ABG pO2 ABG HCO3 ABG O2 Saturation ABG Base Excess ABG Hemoglobin Oxyhemoglobin Sodium Potassium Chloride Carbon Dioxide BUN Creatinine Glucose POC Glucose 123 H 110 H Lactic Acid Calcium Phosphorus Magnesium AST ALT Alkaline Phosphatase Lactate Dehydrogenase Troponin T C-Reactive Protein NT-Pro-B Natriuret Pep Total Protein Albumin LDL Cholesterol Direct Vitamin B12 Fluid Glucose Fluid Total Protein Vancomycin Trough Crossmatch 12/02/21 12/02/21 12/02/21 04:20 11:17 18:20 WBC RBC Hgb Hct MCV MCH MCHC RDW Plt Count Seg Neuts % (Manual) Lymphocytes % (Manual) Seg Neutrophils # Man Lymphocytes # (Manual) Monocytes # (Manual) PT INR D-Dimer ABG pH ABG pO2 ABG HCO3 ABG O2 Saturation ABG Base Excess ABG Hemoglobin Oxyhemoglobin Sodium 135 L Potassium Chloride Carbon Dioxide BUN 26 H Creatinine Glucose 121 H POC Glucose 117 H 113 H Lactic Acid Calcium 7.4 L Phosphorus Magnesium AST ALT Alkaline Phosphatase Lactate Dehydrogenase Troponin T C-Reactive Protein NT-Pro-B Natriuret Pep Total Protein Albumin LDL Cholesterol Direct Vitamin B12 Fluid Glucose Fluid Total Protein Vancomycin Trough Crossmatch 12/03/21 12/03/21 12/03/21 00:12 04:00 04:00 WBC RBC 2.99 L Hgb 7.8 L Hct 24.6 L MCV MCH 26 L MCHC RDW 20.2 H Plt Count Seg Neuts % (Manual) Lymphocytes % (Manual) Seg Neutrophils # Man Lymphocytes # (Manual) Monocytes # (Manual) PT INR D-Dimer ABG pH ABG pO2 ABG HCO3 ABG O2 Saturation ABG Base Excess ABG Hemoglobin Oxyhemoglobin Sodium 136 L Potassium Chloride Carbon Dioxide BUN 27 H Creatinine Glucose 133 H POC Glucose 121 H Lactic Acid Calcium 7.5 L Phosphorus Magnesium AST ALT Alkaline Phosphatase Lactate Dehydrogenase Troponin T C-Reactive Protein NT-Pro-B Natriuret Pep Total Protein Albumin LDL Cholesterol Direct Vitamin B12 Fluid Glucose Fluid Total Protein Vancomycin Trough Crossmatch 12/03/21 12/03/21 12/03/21 06:30 11:13 16:00 WBC RBC Hgb Hct MCV MCH MCHC RDW Plt Count Seg Neuts % (Manual) Lymphocytes % (Manual) Seg Neutrophils # Man Lymphocytes # (Manual) Monocytes # (Manual) PT INR D-Dimer ABG pH ABG pO2 ABG HCO3 ABG O2 Saturation ABG Base Excess ABG Hemoglobin Oxyhemoglobin Sodium Potassium Chloride Carbon Dioxide BUN Creatinine Glucose POC Glucose 129 H 125 H 125 H Lactic Acid Calcium Phosphorus Magnesium AST ALT Alkaline Phosphatase Lactate Dehydrogenase Troponin T C-Reactive Protein NT-Pro-B Natriuret Pep Total Protein Albumin LDL Cholesterol Direct Vitamin B12 Fluid Glucose Fluid Total Protein Vancomycin Trough Crossmatch 12/03/21 12/04/21 12/04/21 23:32 04:00 05:36 WBC RBC Hgb Hct MCV MCH MCHC RDW Plt Count Seg Neuts % (Manual) Lymphocytes % (Manual) Seg Neutrophils # Man Lymphocytes # (Manual) Monocytes # (Manual) PT INR D-Dimer ABG pH ABG pO2 ABG HCO3 ABG O2 Saturation ABG Base Excess ABG Hemoglobin Oxyhemoglobin Sodium Potassium 3.5 L Chloride Carbon Dioxide BUN 26 H Creatinine 0.5 L Glucose 151 H POC Glucose 133 H 142 H Lactic Acid Calcium 8.3 L Phosphorus Magnesium AST ALT Alkaline Phosphatase Lactate Dehydrogenase Troponin T C-Reactive Protein NT-Pro-B Natriuret Pep Total Protein Albumin LDL Cholesterol Direct Vitamin B12 Fluid Glucose Fluid Total Protein Vancomycin Trough Crossmatch 12/04/21 12/04/21 12/05/21 11:24 15:58 04:36 WBC RBC Hgb Hct MCV MCH MCHC RDW Plt Count Seg Neuts % (Manual) Lymphocytes % (Manual) Seg Neutrophils # Man Lymphocytes # (Manual) Monocytes # (Manual) PT INR D-Dimer ABG pH ABG pO2 ABG HCO3 ABG O2 Saturation ABG Base Excess ABG Hemoglobin Oxyhemoglobin Sodium Potassium Chloride Carbon Dioxide BUN 21 H Creatinine 0.5 L Glucose 119 H POC Glucose 130 H 111 H Lactic Acid Calcium 8.3 L Phosphorus Magnesium AST ALT Alkaline Phosphatase Lactate Dehydrogenase Troponin T C-Reactive Protein NT-Pro-B Natriuret Pep Total Protein Albumin LDL Cholesterol Direct Vitamin B12 Fluid Glucose Fluid Total Protein Vancomycin Trough Crossmatch 12/05/21 12/05/21 12/05/21 05:15 10:40 11:12 WBC RBC 2.98 L Hgb 8.1 L Hct 24.6 L MCV MCH 27 L MCHC RDW 20.8 H Plt Count Seg Neuts % (Manual) Lymphocytes % (Manual) Seg Neutrophils # Man Lymphocytes # (Manual) Monocytes # (Manual) PT INR D-Dimer ABG pH ABG pO2 ABG HCO3 ABG O2 Saturation ABG Base Excess ABG Hemoglobin Oxyhemoglobin Sodium Potassium Chloride Carbon Dioxide BUN Creatinine Glucose POC Glucose 107 H 110 H Lactic Acid Calcium Phosphorus Magnesium AST ALT Alkaline Phosphatase Lactate Dehydrogenase Troponin T C-Reactive Protein NT-Pro-B Natriuret Pep Total Protein Albumin LDL Cholesterol Direct Vitamin B12 Fluid Glucose Fluid Total Protein Vancomycin Trough Crossmatch 12/05/21 12/06/21 12/06/21 23:39 04:25 04:25 WBC RBC 2.95 L Hgb 7.9 L Hct 24.7 L MCV MCH 27 L MCHC RDW 20.9 H Plt Count Seg Neuts % (Manual) Lymphocytes % (Manual) Seg Neutrophils # Man Lymphocytes # (Manual) Monocytes # (Manual) PT INR D-Dimer ABG pH ABG pO2 ABG HCO3 ABG O2 Saturation ABG Base Excess ABG Hemoglobin Oxyhemoglobin Sodium Potassium Chloride Carbon Dioxide BUN 22 H Creatinine 0.5 L Glucose 136 H POC Glucose 118 H Lactic Acid Calcium 8.2 L Phosphorus Magnesium AST ALT Alkaline Phosphatase Lactate Dehydrogenase Troponin T C-Reactive Protein NT-Pro-B Natriuret Pep Total Protein Albumin LDL Cholesterol Direct Vitamin B12 Fluid Glucose Fluid Total Protein Vancomycin Trough Crossmatch 12/06/21 12/06/21 12/07/21 05:28 11:27 04:00 WBC RBC Hgb 7.2 L Hct 21.8 L MCV MCH MCHC RDW Plt Count Seg Neuts % (Manual) Lymphocytes % (Manual) Seg Neutrophils # Man Lymphocytes # (Manual) Monocytes # (Manual) PT INR D-Dimer ABG pH ABG pO2 ABG HCO3 ABG O2 Saturation ABG Base Excess ABG Hemoglobin Oxyhemoglobin Sodium Potassium Chloride Carbon Dioxide BUN Creatinine Glucose POC Glucose 142 H 126 H Lactic Acid Calcium Phosphorus Magnesium AST ALT Alkaline Phosphatase Lactate Dehydrogenase Troponin T C-Reactive Protein NT-Pro-B Natriuret Pep Total Protein Albumin LDL Cholesterol Direct Vitamin B12 Fluid Glucose Fluid Total Protein Vancomycin Trough Crossmatch 12/07/21 12/07/21 12/07/21 04:00 05:30 11:12 WBC RBC Hgb Hct MCV MCH MCHC RDW Plt Count Seg Neuts % (Manual) Lymphocytes % (Manual) Seg Neutrophils # Man Lymphocytes # (Manual) Monocytes # (Manual) PT INR D-Dimer ABG pH ABG pO2 ABG HCO3 ABG O2 Saturation ABG Base Excess ABG Hemoglobin Oxyhemoglobin Sodium Potassium Chloride Carbon Dioxide BUN 22 H Creatinine Glucose 119 H POC Glucose 121 H 124 H Lactic Acid Calcium 8.0 L Phosphorus Magnesium AST ALT Alkaline Phosphatase Lactate Dehydrogenase Troponin T C-Reactive Protein NT-Pro-B Natriuret Pep Total Protein Albumin LDL Cholesterol Direct Vitamin B12 Fluid Glucose Fluid Total Protein Vancomycin Trough Crossmatch 12/08/21 12/08/21 12/08/21 04:00 04:00 05:39 WBC RBC 2.81 L Hgb 7.7 L Hct 23.5 L MCV MCH MCHC RDW 21.2 H Plt Count Seg Neuts % (Manual) Lymphocytes % (Manual) Seg Neutrophils # Man Lymphocytes # (Manual) Monocytes # (Manual) PT INR D-Dimer ABG pH ABG pO2 ABG HCO3 ABG O2 Saturation ABG Base Excess ABG Hemoglobin Oxyhemoglobin Sodium 135 L Potassium Chloride Carbon Dioxide BUN 23 H Creatinine Glucose 109 H POC Glucose 112 H Lactic Acid Calcium Phosphorus Magnesium AST ALT Alkaline Phosphatase Lactate Dehydrogenase Troponin T C-Reactive Protein NT-Pro-B Natriuret Pep Total Protein Albumin LDL Cholesterol Direct Vitamin B12 Fluid Glucose Fluid Total Protein Vancomycin Trough Crossmatch 12/08/21 12/09/21 12/09/21 11:03 04:20 04:20 WBC RBC 2.67 L Hgb 7.6 L Hct 22.1 L MCV MCH MCHC RDW 20.8 H Plt Count Seg Neuts % (Manual) Lymphocytes % (Manual) Seg Neutrophils # Man Lymphocytes # (Manual) Monocytes # (Manual) PT INR D-Dimer ABG pH ABG pO2 ABG HCO3 ABG O2 Saturation ABG Base Excess ABG Hemoglobin Oxyhemoglobin Sodium 135 L Potassium Chloride 97.8 L Carbon Dioxide BUN 26 H Creatinine Glucose 119 H POC Glucose 108 H Lactic Acid Calcium 7.7 L Phosphorus Magnesium AST ALT Alkaline Phosphatase Lactate Dehydrogenase Troponin T C-Reactive Protein NT-Pro-B Natriuret Pep Total Protein Albumin LDL Cholesterol Direct Vitamin B12 Fluid Glucose Fluid Total Protein Vancomycin Trough Crossmatch 12/09/21 12/10/21 12/10/21 11:26 04:33 11:12 WBC RBC Hgb Hct MCV MCH MCHC RDW Plt Count Seg Neuts % (Manual) Lymphocytes % (Manual) Seg Neutrophils # Man Lymphocytes # (Manual) Monocytes # (Manual) PT INR D-Dimer ABG pH ABG pO2 ABG HCO3 ABG O2 Saturation ABG Base Excess ABG Hemoglobin Oxyhemoglobin Sodium 136 L Potassium Chloride Carbon Dioxide BUN 27 H Creatinine Glucose 117 H POC Glucose 110 H 117 H Lactic Acid Calcium 8.2 L Phosphorus Magnesium AST ALT Alkaline Phosphatase Lactate Dehydrogenase Troponin T C-Reactive Protein NT-Pro-B Natriuret Pep Total Protein Albumin LDL Cholesterol Direct Vitamin B12 Fluid Glucose Fluid Total Protein Vancomycin Trough Crossmatch 12/10/21 12/10/21 12/11/21 16:02 23:31 04:35 WBC RBC 2.57 L Hgb 7.0 L Hct 21.4 L MCV MCH 27 L MCHC RDW 21.1 H Plt Count Seg Neuts % (Manual) Lymphocytes % (Manual) Seg Neutrophils # Man Lymphocytes # (Manual) Monocytes # (Manual) PT INR D-Dimer ABG pH ABG pO2 ABG HCO3 ABG O2 Saturation ABG Base Excess ABG Hemoglobin Oxyhemoglobin Sodium Potassium Chloride Carbon Dioxide BUN Creatinine Glucose POC Glucose 137 H 111 H Lactic Acid Calcium Phosphorus Magnesium AST ALT Alkaline Phosphatase Lactate Dehydrogenase Troponin T C-Reactive Protein NT-Pro-B Natriuret Pep Total Protein Albumin LDL Cholesterol Direct Vitamin B12 Fluid Glucose Fluid Total Protein Vancomycin Trough Crossmatch 12/11/21 12/11/21 12/11/21 04:35 12:46 16:07 WBC RBC Hgb Hct MCV MCH MCHC RDW Plt Count Seg Neuts % (Manual) Lymphocytes % (Manual) Seg Neutrophils # Man Lymphocytes # (Manual) Monocytes # (Manual) PT INR D-Dimer ABG pH ABG pO2 ABG HCO3 ABG O2 Saturation ABG Base Excess ABG Hemoglobin Oxyhemoglobin Sodium 136 L Potassium Chloride Carbon Dioxide BUN 27 H Creatinine Glucose 112 H POC Glucose 115 H 111 H Lactic Acid Calcium 7.6 L Phosphorus Magnesium AST ALT Alkaline Phosphatase Lactate Dehydrogenase Troponin T C-Reactive Protein NT-Pro-B Natriuret Pep Total Protein Albumin LDL Cholesterol Direct Vitamin B12 Fluid Glucose Fluid Total Protein Vancomycin Trough Crossmatch 12/11/21 12/12/21 12/12/21 23:42 04:30 04:30 WBC RBC 2.60 L Hgb 7.1 L Hct 21.5 L MCV MCH 27 L MCHC RDW 20.3 H Plt Count Seg Neuts % (Manual) Lymphocytes % (Manual) Seg Neutrophils # Man Lymphocytes # (Manual) Monocytes # (Manual) PT INR D-Dimer ABG pH ABG pO2 ABG HCO3 ABG O2 Saturation ABG Base Excess ABG Hemoglobin Oxyhemoglobin Sodium 135 L Potassium Chloride 97.9 L Carbon Dioxide BUN 26 H Creatinine 0.5 L Glucose 138 H POC Glucose 115 H Lactic Acid Calcium 8.2 L Phosphorus Magnesium AST ALT Alkaline Phosphatase Lactate Dehydrogenase Troponin T C-Reactive Protein NT-Pro-B Natriuret Pep Total Protein Albumin LDL Cholesterol Direct Vitamin B12 Fluid Glucose Fluid Total Protein Vancomycin Trough Crossmatch 12/12/21 12/12/21 12/12/21 04:30 05:10 11:51 WBC RBC Hgb Hct MCV MCH MCHC RDW Plt Count Seg Neuts % (Manual) Lymphocytes % (Manual) Seg Neutrophils # Man Lymphocytes # (Manual) Monocytes # (Manual) PT INR D-Dimer ABG pH ABG pO2 ABG HCO3 ABG O2 Saturation ABG Base Excess ABG Hemoglobin Oxyhemoglobin Sodium Potassium Chloride Carbon Dioxide BUN Creatinine Glucose POC Glucose 119 H 119 H Lactic Acid Calcium Phosphorus Magnesium AST ALT Alkaline Phosphatase Lactate Dehydrogenase Troponin T C-Reactive Protein NT-Pro-B Natriuret Pep Total Protein Albumin LDL Cholesterol Direct Vitamin B12 Fluid Glucose Fluid Total Protein Vancomycin Trough Crossmatch See Detail 12/13/21 12/13/21 12/13/21 00:52 04:00 04:00 WBC RBC 2.73 L Hgb 7.4 L Hct 22.8 L MCV MCH 27 L MCHC RDW 20.5 H Plt Count Seg Neuts % (Manual) Lymphocytes % (Manual) Seg Neutrophils # Man Lymphocytes # (Manual) Monocytes # (Manual) PT INR D-Dimer ABG pH ABG pO2 ABG HCO3 ABG O2 Saturation ABG Base Excess ABG Hemoglobin Oxyhemoglobin Sodium 134 L Potassium Chloride 96.7 L Carbon Dioxide BUN 23 H Creatinine 0.5 L Glucose 131 H POC Glucose 131 H Lactic Acid Calcium 8.1 L Phosphorus Magnesium AST ALT Alkaline Phosphatase Lactate Dehydrogenase Troponin T C-Reactive Protein NT-Pro-B Natriuret Pep Total Protein Albumin LDL Cholesterol Direct Vitamin B12 Fluid Glucose Fluid Total Protein Vancomycin Trough Crossmatch 12/13/21 12/13/21 12/13/21 05:23 12:11 17:18 WBC RBC Hgb Hct MCV MCH MCHC RDW Plt Count Seg Neuts % (Manual) Lymphocytes % (Manual) Seg Neutrophils # Man Lymphocytes # (Manual) Monocytes # (Manual) PT INR D-Dimer ABG pH ABG pO2 ABG HCO3 ABG O2 Saturation ABG Base Excess ABG Hemoglobin Oxyhemoglobin Sodium Potassium Chloride Carbon Dioxide BUN Creatinine Glucose POC Glucose 121 H 143 H 148 H Lactic Acid Calcium Phosphorus Magnesium AST ALT Alkaline Phosphatase Lactate Dehydrogenase Troponin T C-Reactive Protein NT-Pro-B Natriuret Pep Total Protein Albumin LDL Cholesterol Direct Vitamin B12 Fluid Glucose Fluid Total Protein Vancomycin Trough Crossmatch 12/14/21 12/14/21 12/14/21 00:54 04:20 04:20 WBC RBC 2.39 L Hgb 6.5 L Hct 20.3 L MCV MCH 27 L MCHC RDW 20.3 H Plt Count Seg Neuts % (Manual) Lymphocytes % (Manual) Seg Neutrophils # Man Lymphocytes # (Manual) Monocytes # (Manual) PT INR D-Dimer ABG pH ABG pO2 ABG HCO3 ABG O2 Saturation ABG Base Excess ABG Hemoglobin Oxyhemoglobin Sodium 130 L Potassium Chloride 93.5 L Carbon Dioxide BUN 25 H Creatinine Glucose 123 H POC Glucose 123 H Lactic Acid Calcium 8.0 L Phosphorus Magnesium AST ALT Alkaline Phosphatase Lactate Dehydrogenase Troponin T C-Reactive Protein NT-Pro-B Natriuret Pep Total Protein Albumin LDL Cholesterol Direct Vitamin B12 Fluid Glucose Fluid Total Protein Vancomycin Trough Crossmatch 12/14/21 12/14/21 12/14/21 05:06 08:17 10:30 WBC RBC Hgb Hct MCV MCH MCHC RDW Plt Count Seg Neuts % (Manual) Lymphocytes % (Manual) Seg Neutrophils # Man Lymphocytes # (Manual) Monocytes # (Manual) PT INR D-Dimer ABG pH ABG pO2 ABG HCO3 ABG O2 Saturation ABG Base Excess ABG Hemoglobin Oxyhemoglobin Sodium Potassium Chloride Carbon Dioxide BUN Creatinine Glucose POC Glucose 131 H 119 H Lactic Acid Calcium Phosphorus Magnesium AST ALT Alkaline Phosphatase Lactate Dehydrogenase Troponin T C-Reactive Protein NT-Pro-B Natriuret Pep Total Protein Albumin LDL Cholesterol Direct Vitamin B12 Fluid Glucose Fluid Total Protein Vancomycin Trough Crossmatch See Detail 12/14/21 12/14/21 12/14/21 12:15 16:37 23:27 WBC RBC Hgb Hct MCV MCH MCHC RDW Plt Count Seg Neuts % (Manual) Lymphocytes % (Manual) Seg Neutrophils # Man Lymphocytes # (Manual) Monocytes # (Manual) PT INR D-Dimer ABG pH ABG pO2 ABG HCO3 ABG O2 Saturation ABG Base Excess ABG Hemoglobin Oxyhemoglobin Sodium Potassium Chloride Carbon Dioxide BUN Creatinine Glucose POC Glucose 147 H 141 H 130 H Lactic Acid Calcium Phosphorus Magnesium AST ALT Alkaline Phosphatase Lactate Dehydrogenase Troponin T C-Reactive Protein NT-Pro-B Natriuret Pep Total Protein Albumin LDL Cholesterol Direct Vitamin B12 Fluid Glucose Fluid Total Protein Vancomycin Trough Crossmatch 12/15/21 12/15/21 12/15/21 05:00 07:00 07:00 WBC 12.3 H RBC 3.27 L Hgb 8.8 L Hct 27.5 L D MCV MCH 27 L MCHC RDW 19.0 H Plt Count Seg Neuts % (Manual) Lymphocytes % (Manual) Seg Neutrophils # Man Lymphocytes # (Manual) Monocytes # (Manual) PT INR D-Dimer ABG pH ABG pO2 ABG HCO3 ABG O2 Saturation ABG Base Excess ABG Hemoglobin Oxyhemoglobin Sodium 134 L Potassium Chloride 95.7 L Carbon Dioxide BUN 28 H Creatinine Glucose 129 H POC Glucose 129 H Lactic Acid Calcium 8.2 L Phosphorus Magnesium AST ALT Alkaline Phosphatase Lactate Dehydrogenase Troponin T C-Reactive Protein NT-Pro-B Natriuret Pep Total Protein Albumin LDL Cholesterol Direct Vitamin B12 Fluid Glucose Fluid Total Protein Vancomycin Trough Crossmatch 12/15/21 12/15/21 12/15/21 11:18 16:00 23:39 WBC RBC Hgb Hct MCV MCH MCHC RDW Plt Count Seg Neuts % (Manual) Lymphocytes % (Manual) Seg Neutrophils # Man Lymphocytes # (Manual) Monocytes # (Manual) PT INR D-Dimer ABG pH ABG pO2 ABG HCO3 ABG O2 Saturation ABG Base Excess ABG Hemoglobin Oxyhemoglobin Sodium Potassium Chloride Carbon Dioxide BUN Creatinine Glucose POC Glucose 139 H 137 H 146 H Lactic Acid Calcium Phosphorus Magnesium AST ALT Alkaline Phosphatase Lactate Dehydrogenase Troponin T C-Reactive Protein NT-Pro-B Natriuret Pep Total Protein Albumin LDL Cholesterol Direct Vitamin B12 Fluid Glucose Fluid Total Protein Vancomycin Trough Crossmatch 12/16/21 12/16/21 12/16/21 05:24 10:21 10:21 WBC 15.3 H RBC 3.24 L Hgb 8.9 L Hct 27.7 L MCV MCH MCHC RDW 19.0 H Plt Count Seg Neuts % (Manual) Lymphocytes % (Manual) Seg Neutrophils # Man Lymphocytes # (Manual) Monocytes # (Manual) PT INR D-Dimer ABG pH ABG pO2 ABG HCO3 ABG O2 Saturation ABG Base Excess ABG Hemoglobin Oxyhemoglobin Sodium 131 L Potassium 3.5 L Chloride 92.7 L Carbon Dioxide BUN 36 H Creatinine Glucose 160 H POC Glucose 121 H Lactic Acid Calcium Phosphorus Magnesium 1.60 L AST ALT Alkaline Phosphatase Lactate Dehydrogenase Troponin T C-Reactive Protein NT-Pro-B Natriuret Pep Total Protein Albumin LDL Cholesterol Direct Vitamin B12 Fluid Glucose Fluid Total Protein Vancomycin Trough Crossmatch 12/16/21 12/16/21 12/16/21 11:21 18:28 20:52 WBC RBC Hgb Hct MCV MCH MCHC RDW Plt Count Seg Neuts % (Manual) Lymphocytes % (Manual) Seg Neutrophils # Man Lymphocytes # (Manual) Monocytes # (Manual) PT INR D-Dimer ABG pH 7.479 H ABG pO2 79.3 L ABG HCO3 27.3 H ABG O2 Saturation ABG Base Excess 3.6 H ABG Hemoglobin 9.1 L Oxyhemoglobin 94.9 L Sodium Potassium Chloride Carbon Dioxide BUN Creatinine Glucose POC Glucose 153 H 132 H Lactic Acid Calcium Phosphorus Magnesium AST ALT Alkaline Phosphatase Lactate Dehydrogenase Troponin T C-Reactive Protein NT-Pro-B Natriuret Pep Total Protein Albumin LDL Cholesterol Direct Vitamin B12 Fluid Glucose Fluid Total Protein Vancomycin Trough Crossmatch 12/16/21 12/17/21 12/17/21 23:30 04:25 04:25 WBC 12.3 H RBC 2.16 L Hgb 6.0 L Hct 18.1 L* D MCV MCH MCHC RDW 19.4 H Plt Count Seg Neuts % (Manual) Lymphocytes % (Manual) Seg Neutrophils # Man Lymphocytes # (Manual) Monocytes # (Manual) PT INR D-Dimer ABG pH ABG pO2 ABG HCO3 ABG O2 Saturation ABG Base Excess ABG Hemoglobin Oxyhemoglobin Sodium 132 L Potassium 3.2 L Chloride 112.0 H Carbon Dioxide BUN 32 H Creatinine Glucose 122 H POC Glucose 137 H Lactic Acid Calcium 6.8 L D Phosphorus Magnesium AST ALT Alkaline Phosphatase Lactate Dehydrogenase Troponin T C-Reactive Protein NT-Pro-B Natriuret Pep Total Protein Albumin LDL Cholesterol Direct Vitamin B12 Fluid Glucose Fluid Total Protein Vancomycin Trough Crossmatch 12/17/21 12/17/21 12/17/21 05:30 11:49 14:45 WBC RBC Hgb 9.7 L D Hct MCV MCH MCHC RDW Plt Count Seg Neuts % (Manual) Lymphocytes % (Manual) Seg Neutrophils # Man Lymphocytes # (Manual) Monocytes # (Manual) PT INR D-Dimer ABG pH ABG pO2 ABG HCO3 ABG O2 Saturation ABG Base Excess ABG Hemoglobin Oxyhemoglobin Sodium Potassium Chloride Carbon Dioxide BUN Creatinine Glucose POC Glucose 137 H 143 H Lactic Acid Calcium Phosphorus Magnesium AST ALT Alkaline Phosphatase Lactate Dehydrogenase Troponin T C-Reactive Protein NT-Pro-B Natriuret Pep Total Protein Albumin LDL Cholesterol Direct Vitamin B12 Fluid Glucose Fluid Total Protein Vancomycin Trough Crossmatch 12/17/21 12/18/21 12/18/21 17:01 05:04 05:04 WBC 13.8 H RBC 3.44 L Hgb 9.9 L Hct 28.8 L MCV MCH MCHC RDW 18.1 H Plt Count Seg Neuts % (Manual) Lymphocytes % (Manual) Seg Neutrophils # Man Lymphocytes # (Manual) Monocytes # (Manual) PT INR D-Dimer ABG pH ABG pO2 ABG HCO3 ABG O2 Saturation ABG Base Excess ABG Hemoglobin Oxyhemoglobin Sodium 132 L Potassium Chloride 97.4 L Carbon Dioxide BUN 38 H Creatinine Glucose 134 H POC Glucose 132 H Lactic Acid Calcium Phosphorus Magnesium AST ALT Alkaline Phosphatase Lactate Dehydrogenase Troponin T C-Reactive Protein NT-Pro-B Natriuret Pep Total Protein Albumin LDL Cholesterol Direct Vitamin B12 Fluid Glucose Fluid Total Protein Vancomycin Trough Crossmatch 12/18/21 12/18/21 12/18/21 05:28 10:57 16:27 WBC RBC Hgb Hct MCV MCH MCHC RDW Plt Count Seg Neuts % (Manual) Lymphocytes % (Manual) Seg Neutrophils # Man Lymphocytes # (Manual) Monocytes # (Manual) PT INR D-Dimer ABG pH ABG pO2 ABG HCO3 ABG O2 Saturation ABG Base Excess ABG Hemoglobin Oxyhemoglobin Sodium Potassium Chloride Carbon Dioxide BUN Creatinine Glucose POC Glucose 118 H 132 H 130 H Lactic Acid Calcium Phosphorus Magnesium AST ALT Alkaline Phosphatase Lactate Dehydrogenase Troponin T C-Reactive Protein NT-Pro-B Natriuret Pep Total Protein Albumin LDL Cholesterol Direct Vitamin B12 Fluid Glucose Fluid Total Protein Vancomycin Trough Crossmatch 12/19/21 12/19/21 12/19/21 00:02 04:41 04:41 WBC 16.0 H RBC 3.45 L Hgb 9.7 L Hct 29.1 L MCV MCH MCHC RDW 17.8 H Plt Count Seg Neuts % (Manual) Lymphocytes % (Manual) Seg Neutrophils # Man Lymphocytes # (Manual) Monocytes # (Manual) PT INR D-Dimer ABG pH ABG pO2 ABG HCO3 ABG O2 Saturation ABG Base Excess ABG Hemoglobin Oxyhemoglobin Sodium 133 L Potassium Chloride 97.9 L Carbon Dioxide BUN 36 H Creatinine 0.5 L Glucose 126 H POC Glucose 127 H Lactic Acid Calcium 8.3 L Phosphorus Magnesium AST ALT Alkaline Phosphatase Lactate Dehydrogenase Troponin T C-Reactive Protein NT-Pro-B Natriuret Pep Total Protein Albumin LDL Cholesterol Direct Vitamin B12 Fluid Glucose Fluid Total Protein Vancomycin Trough Crossmatch 12/19/21 12/19/21 12/19/21 05:26 12:20 16:43 WBC RBC Hgb Hct MCV MCH MCHC RDW Plt Count Seg Neuts % (Manual) Lymphocytes % (Manual) Seg Neutrophils # Man Lymphocytes # (Manual) Monocytes # (Manual) PT INR D-Dimer ABG pH ABG pO2 ABG HCO3 ABG O2 Saturation ABG Base Excess ABG Hemoglobin Oxyhemoglobin Sodium Potassium Chloride Carbon Dioxide BUN Creatinine Glucose POC Glucose 119 H 145 H 126 H Lactic Acid Calcium Phosphorus Magnesium AST ALT Alkaline Phosphatase Lactate Dehydrogenase Troponin T C-Reactive Protein NT-Pro-B Natriuret Pep Total Protein Albumin LDL Cholesterol Direct Vitamin B12 Fluid Glucose Fluid Total Protein Vancomycin Trough Crossmatch 12/19/21 12/20/21 12/20/21 23:30 04:54 04:54 WBC 12.3 H RBC 3.54 L Hgb 10.0 L Hct 29.5 L MCV MCH MCHC RDW 17.8 H Plt Count Seg Neuts % (Manual) 88.0 H Lymphocytes % (Manual) 6.0 L Seg Neutrophils # Man 10.8 H Lymphocytes # (Manual) 0.7 L Monocytes # (Manual) PT INR D-Dimer ABG pH ABG pO2 ABG HCO3 ABG O2 Saturation ABG Base Excess ABG Hemoglobin Oxyhemoglobin Sodium 131 L Potassium Chloride 96.2 L Carbon Dioxide BUN 36 H Creatinine 0.5 L Glucose 130 H POC Glucose 117 H Lactic Acid Calcium Phosphorus Magnesium AST ALT Alkaline Phosphatase Lactate Dehydrogenase Troponin T C-Reactive Protein NT-Pro-B Natriuret Pep Total Protein Albumin LDL Cholesterol Direct Vitamin B12 Fluid Glucose Fluid Total Protein Vancomycin Trough Crossmatch 12/20/21 12/20/21 12/20/21 05:20 11:51 17:30 WBC RBC Hgb Hct MCV MCH MCHC RDW Plt Count Seg Neuts % (Manual) Lymphocytes % (Manual) Seg Neutrophils # Man Lymphocytes # (Manual) Monocytes # (Manual) PT INR D-Dimer ABG pH ABG pO2 ABG HCO3 ABG O2 Saturation ABG Base Excess ABG Hemoglobin Oxyhemoglobin Sodium Potassium Chloride Carbon Dioxide BUN Creatinine Glucose POC Glucose 126 H 119 H 127 H Lactic Acid Calcium Phosphorus Magnesium AST ALT Alkaline Phosphatase Lactate Dehydrogenase Troponin T C-Reactive Protein NT-Pro-B Natriuret Pep Total Protein Albumin LDL Cholesterol Direct Vitamin B12 Fluid Glucose Fluid Total Protein Vancomycin Trough Crossmatch 12/21/21 12/21/21 12/21/21 00:45 04:21 04:21 WBC RBC 3.47 L Hgb 9.4 L Hct 29.2 L MCV MCH 27 L MCHC RDW 18.1 H Plt Count Seg Neuts % (Manual) Lymphocytes % (Manual) Seg Neutrophils # Man Lymphocytes # (Manual) Monocytes # (Manual) PT INR D-Dimer ABG pH ABG pO2 ABG HCO3 ABG O2 Saturation ABG Base Excess ABG Hemoglobin Oxyhemoglobin Sodium 134 L Potassium Chloride Carbon Dioxide BUN 35 H Creatinine 0.5 L Glucose 122 H POC Glucose 125 H Lactic Acid Calcium 8.2 L Phosphorus Magnesium AST ALT Alkaline Phosphatase Lactate Dehydrogenase Troponin T C-Reactive Protein NT-Pro-B Natriuret Pep Total Protein Albumin LDL Cholesterol Direct Vitamin B12 Fluid Glucose Fluid Total Protein Vancomycin Trough Crossmatch 12/21/21 12/21/21 12/21/21 05:38 11:29 16:16 WBC RBC Hgb Hct MCV MCH MCHC RDW Plt Count Seg Neuts % (Manual) Lymphocytes % (Manual) Seg Neutrophils # Man Lymphocytes # (Manual) Monocytes # (Manual) PT INR D-Dimer ABG pH ABG pO2 ABG HCO3 ABG O2 Saturation ABG Base Excess ABG Hemoglobin Oxyhemoglobin Sodium Potassium Chloride Carbon Dioxide BUN Creatinine Glucose POC Glucose 127 H 121 H 113 H Lactic Acid Calcium Phosphorus Magnesium AST ALT Alkaline Phosphatase Lactate Dehydrogenase Troponin T C-Reactive Protein NT-Pro-B Natriuret Pep Total Protein Albumin LDL Cholesterol Direct Vitamin B12 Fluid Glucose Fluid Total Protein Vancomycin Trough Crossmatch 12/22/21 12/22/21 12/23/21 04:58 04:58 06:40 WBC 11.5 H RBC 3.43 L Hgb 9.8 L Hct 28.7 L MCV MCH MCHC RDW 18.5 H 17.9 H Plt Count Seg Neuts % (Manual) Lymphocytes % (Manual) Seg Neutrophils # Man Lymphocytes # (Manual) Monocytes # (Manual) PT INR D-Dimer ABG pH ABG pO2 ABG HCO3 ABG O2 Saturation ABG Base Excess ABG Hemoglobin Oxyhemoglobin Sodium 130 L Potassium Chloride 97.8 L Carbon Dioxide BUN 31 H Creatinine 0.5 L Glucose 122 H POC Glucose Lactic Acid Calcium 7.9 L Phosphorus Magnesium AST ALT Alkaline Phosphatase Lactate Dehydrogenase Troponin T C-Reactive Protein NT-Pro-B Natriuret Pep Total Protein Albumin LDL Cholesterol Direct Vitamin B12 Fluid Glucose Fluid Total Protein Vancomycin Trough Crossmatch 12/23/21 12/23/21 12/24/21 06:40 23:25 04:24 WBC 11.7 H RBC Hgb 9.8 L Hct MCV MCH 26 L MCHC RDW 18.1 H Plt Count Seg Neuts % (Manual) Lymphocytes % (Manual) Seg Neutrophils # Man Lymphocytes # (Manual) Monocytes # (Manual) PT INR D-Dimer ABG pH ABG pO2 ABG HCO3 ABG O2 Saturation ABG Base Excess ABG Hemoglobin Oxyhemoglobin Sodium 136 L Potassium Chloride Carbon Dioxide BUN 27 H Creatinine 0.4 L Glucose 107 H POC Glucose 110 H Lactic Acid Calcium 8.1 L Phosphorus Magnesium AST ALT Alkaline Phosphatase Lactate Dehydrogenase Troponin T C-Reactive Protein NT-Pro-B Natriuret Pep Total Protein Albumin LDL Cholesterol Direct Vitamin B12 Fluid Glucose Fluid Total Protein Vancomycin Trough Crossmatch 12/24/21 12/24/21 12/24/21 04:24 11:08 15:45 WBC RBC Hgb Hct MCV MCH MCHC RDW Plt Count Seg Neuts % (Manual) Lymphocytes % (Manual) Seg Neutrophils # Man Lymphocytes # (Manual) Monocytes # (Manual) PT INR D-Dimer ABG pH ABG pO2 ABG HCO3 ABG O2 Saturation ABG Base Excess ABG Hemoglobin Oxyhemoglobin Sodium 132 L Potassium Chloride Carbon Dioxide BUN 27 H Creatinine 0.3 L Glucose 108 H POC Glucose 116 H 107 H Lactic Acid Calcium Phosphorus Magnesium AST ALT Alkaline Phosphatase Lactate Dehydrogenase Troponin T C-Reactive Protein NT-Pro-B Natriuret Pep Total Protein Albumin LDL Cholesterol Direct Vitamin B12 Fluid Glucose Fluid Total Protein Vancomycin Trough Crossmatch 12/24/21 12/25/21 12/25/21 23:43 05:29 11:48 WBC RBC Hgb Hct MCV MCH MCHC RDW Plt Count Seg Neuts % (Manual) Lymphocytes % (Manual) Seg Neutrophils # Man Lymphocytes # (Manual) Monocytes # (Manual) PT INR D-Dimer ABG pH ABG pO2 ABG HCO3 ABG O2 Saturation ABG Base Excess ABG Hemoglobin Oxyhemoglobin Sodium Potassium Chloride Carbon Dioxide BUN Creatinine Glucose POC Glucose 123 H 107 H 119 H Lactic Acid Calcium Phosphorus Magnesium AST ALT Alkaline Phosphatase Lactate Dehydrogenase Troponin T C-Reactive Protein NT-Pro-B Natriuret Pep Total Protein Albumin LDL Cholesterol Direct Vitamin B12 Fluid Glucose Fluid Total Protein Vancomycin Trough Crossmatch 12/26/21 12/26/21 12/26/21 00:06 05:56 07:51 WBC 11.4 H RBC 3.40 L Hgb 9.3 L Hct 28.3 L MCV MCH 27 L MCHC RDW 18.2 H Plt Count Seg Neuts % (Manual) Lymphocytes % (Manual) Seg Neutrophils # Man Lymphocytes # (Manual) Monocytes # (Manual) PT INR D-Dimer ABG pH ABG pO2 ABG HCO3 ABG O2 Saturation ABG Base Excess ABG Hemoglobin Oxyhemoglobin Sodium Potassium Chloride Carbon Dioxide BUN Creatinine Glucose POC Glucose 133 H 107 H Lactic Acid Calcium Phosphorus Magnesium AST ALT Alkaline Phosphatase Lactate Dehydrogenase Troponin T C-Reactive Protein NT-Pro-B Natriuret Pep Total Protein Albumin LDL Cholesterol Direct Vitamin B12 Fluid Glucose Fluid Total Protein Vancomycin Trough Crossmatch 12/26/21 12/26/21 12/26/21 07:51 11:43 17:06 WBC RBC Hgb Hct MCV MCH MCHC RDW Plt Count Seg Neuts % (Manual) Lymphocytes % (Manual) Seg Neutrophils # Man Lymphocytes # (Manual) Monocytes # (Manual) PT INR D-Dimer ABG pH ABG pO2 ABG HCO3 ABG O2 Saturation ABG Base Excess ABG Hemoglobin Oxyhemoglobin Sodium 136 L Potassium Chloride Carbon Dioxide BUN 25 H Creatinine 0.3 L Glucose 131 H POC Glucose 119 H 128 H Lactic Acid Calcium Phosphorus Magnesium AST ALT Alkaline Phosphatase Lactate Dehydrogenase Troponin T C-Reactive Protein NT-Pro-B Natriuret Pep Total Protein Albumin LDL Cholesterol Direct Vitamin B12 Fluid Glucose Fluid Total Protein Vancomycin Trough Crossmatch 12/28/21 12/28/21 12/29/21 09:05 09:05 04:40 WBC RBC 3.19 L Hgb 8.9 L Hct 26.4 L MCV MCH 27 L MCHC RDW 18.4 H 17.9 H Plt Count Seg Neuts % (Manual) Lymphocytes % (Manual) Seg Neutrophils # Man Lymphocytes # (Manual) Monocytes # (Manual) PT INR D-Dimer ABG pH ABG pO2 ABG HCO3 ABG O2 Saturation ABG Base Excess ABG Hemoglobin Oxyhemoglobin Sodium 135 L Potassium Chloride 97.8 L Carbon Dioxide BUN 18 H Creatinine 0.3 L Glucose POC Glucose Lactic Acid Calcium Phosphorus Magnesium AST ALT Alkaline Phosphatase Lactate Dehydrogenase Troponin T C-Reactive Protein NT-Pro-B Natriuret Pep Total Protein Albumin LDL Cholesterol Direct Vitamin B12 Fluid Glucose Fluid Total Protein Vancomycin Trough Crossmatch 12/29/21 12/29/21 12/30/21 04:40 12:47 04:05 WBC RBC 3.29 L Hgb 8.7 L Hct 27.6 L MCV MCH 27 L MCHC RDW 17.6 H Plt Count Seg Neuts % (Manual) Lymphocytes % (Manual) Seg Neutrophils # Man Lymphocytes # (Manual) Monocytes # (Manual) PT INR D-Dimer ABG pH ABG pO2 ABG HCO3 ABG O2 Saturation ABG Base Excess ABG Hemoglobin Oxyhemoglobin Sodium 136 L Potassium Chloride Carbon Dioxide BUN Creatinine 0.3 L Glucose POC Glucose 67 L Lactic Acid Calcium 8.3 L Phosphorus Magnesium AST ALT Alkaline Phosphatase Lactate Dehydrogenase Troponin T C-Reactive Protein NT-Pro-B Natriuret Pep Total Protein Albumin LDL Cholesterol Direct Vitamin B12 Fluid Glucose Fluid Total Protein Vancomycin Trough Crossmatch 12/30/21 12/31/21 12/31/21 04:05 00:07 04:00 WBC RBC 3.05 L Hgb 8.5 L Hct 25.5 L MCV MCH MCHC RDW 18.2 H Plt Count Seg Neuts % (Manual) Lymphocytes % (Manual) Seg Neutrophils # Man Lymphocytes # (Manual) Monocytes # (Manual) PT INR D-Dimer ABG pH ABG pO2 ABG HCO3 ABG O2 Saturation ABG Base Excess ABG Hemoglobin Oxyhemoglobin Sodium 136 L Potassium 3.5 L Chloride Carbon Dioxide BUN Creatinine 0.4 L Glucose POC Glucose 139 H Lactic Acid Calcium Phosphorus Magnesium 1.50 L AST ALT Alkaline Phosphatase Lactate Dehydrogenase Troponin T C-Reactive Protein NT-Pro-B Natriuret Pep Total Protein Albumin LDL Cholesterol Direct Vitamin B12 Fluid Glucose Fluid Total Protein Vancomycin Trough Crossmatch 12/31/21 12/31/21 12/31/21 04:00 04:52 11:23 WBC RBC Hgb Hct MCV MCH MCHC RDW Plt Count Seg Neuts % (Manual) Lymphocytes % (Manual) Seg Neutrophils # Man Lymphocytes # (Manual) Monocytes # (Manual) PT INR D-Dimer ABG pH ABG pO2 ABG HCO3 ABG O2 Saturation ABG Base Excess ABG Hemoglobin Oxyhemoglobin Sodium Potassium Chloride Carbon Dioxide BUN 19 H Creatinine 0.4 L Glucose 116 H POC Glucose 121 H 116 H Lactic Acid Calcium Phosphorus Magnesium AST ALT Alkaline Phosphatase Lactate Dehydrogenase Troponin T C-Reactive Protein NT-Pro-B Natriuret Pep Total Protein Albumin LDL Cholesterol Direct Vitamin B12 Fluid Glucose Fluid Total Protein Vancomycin Trough Crossmatch 12/31/21 01/01/22 01/01/22 17:42 04:31 04:31 WBC RBC 2.83 L Hgb 7.7 L Hct 23.2 L MCV MCH 27 L MCHC RDW 18.3 H Plt Count Seg Neuts % (Manual) Lymphocytes % (Manual) Seg Neutrophils # Man Lymphocytes # (Manual) Monocytes # (Manual) PT INR D-Dimer ABG pH ABG pO2 ABG HCO3 ABG O2 Saturation ABG Base Excess ABG Hemoglobin Oxyhemoglobin Sodium 135 L Potassium Chloride 97.7 L Carbon Dioxide BUN 21 H Creatinine 0.5 L Glucose 127 H POC Glucose 107 H Lactic Acid Calcium 8.0 L Phosphorus Magnesium AST ALT Alkaline Phosphatase Lactate Dehydrogenase Troponin T C-Reactive Protein NT-Pro-B Natriuret Pep Total Protein Albumin LDL Cholesterol Direct Vitamin B12 Fluid Glucose Fluid Total Protein Vancomycin Trough Crossmatch 01/01/22 01/01/22 01/01/22 05:24 11:25 18:11 WBC RBC Hgb Hct MCV MCH MCHC RDW Plt Count Seg Neuts % (Manual) Lymphocytes % (Manual) Seg Neutrophils # Man Lymphocytes # (Manual) Monocytes # (Manual) PT INR D-Dimer ABG pH ABG pO2 ABG HCO3 ABG O2 Saturation ABG Base Excess ABG Hemoglobin Oxyhemoglobin Sodium Potassium Chloride Carbon Dioxide BUN Creatinine Glucose POC Glucose 124 H 140 H 144 H Lactic Acid Calcium Phosphorus Magnesium AST ALT Alkaline Phosphatase Lactate Dehydrogenase Troponin T C-Reactive Protein NT-Pro-B Natriuret Pep Total Protein Albumin LDL Cholesterol Direct Vitamin B12 Fluid Glucose Fluid Total Protein Vancomycin Trough Crossmatch 01/01/22 01/02/22 01/02/22 23:26 04:01 04:01 WBC RBC 2.57 L Hgb 7.1 L Hct 21.5 L MCV MCH MCHC RDW 18.1 H Plt Count Seg Neuts % (Manual) Lymphocytes % (Manual) Seg Neutrophils # Man Lymphocytes # (Manual) Monocytes # (Manual) PT INR D-Dimer ABG pH ABG pO2 ABG HCO3 ABG O2 Saturation ABG Base Excess ABG Hemoglobin Oxyhemoglobin Sodium 131 L Potassium 3.5 L Chloride 94.8 L Carbon Dioxide BUN 27 H Creatinine Glucose 121 H POC Glucose 121 H Lactic Acid Calcium Phosphorus Magnesium AST ALT Alkaline Phosphatase Lactate Dehydrogenase Troponin T C-Reactive Protein NT-Pro-B Natriuret Pep Total Protein Albumin LDL Cholesterol Direct Vitamin B12 Fluid Glucose Fluid Total Protein Vancomycin Trough Crossmatch 01/02/22 01/02/22 01/02/22 05:30 11:10 16:08 WBC RBC Hgb Hct MCV MCH MCHC RDW Plt Count Seg Neuts % (Manual) Lymphocytes % (Manual) Seg Neutrophils # Man Lymphocytes # (Manual) Monocytes # (Manual) PT INR D-Dimer ABG pH ABG pO2 ABG HCO3 ABG O2 Saturation ABG Base Excess ABG Hemoglobin Oxyhemoglobin Sodium Potassium Chloride Carbon Dioxide BUN Creatinine Glucose POC Glucose 124 H 117 H 130 H Lactic Acid Calcium Phosphorus Magnesium AST ALT Alkaline Phosphatase Lactate Dehydrogenase Troponin T C-Reactive Protein NT-Pro-B Natriuret Pep Total Protein Albumin LDL Cholesterol Direct Vitamin B12 Fluid Glucose Fluid Total Protein Vancomycin Trough Crossmatch 01/02/22 01/02/22 01/03/22 17:30 23:26 04:53 WBC RBC 2.82 L Hgb 7.7 L Hct 23.4 L MCV MCH 27 L MCHC RDW 18.0 H Plt Count Seg Neuts % (Manual) Lymphocytes % (Manual) Seg Neutrophils # Man Lymphocytes # (Manual) Monocytes # (Manual) PT INR D-Dimer ABG pH ABG pO2 ABG HCO3 ABG O2 Saturation ABG Base Excess ABG Hemoglobin Oxyhemoglobin Sodium Potassium Chloride Carbon Dioxide BUN Creatinine Glucose POC Glucose 114 H Lactic Acid Calcium Phosphorus Magnesium AST ALT Alkaline Phosphatase Lactate Dehydrogenase Troponin T C-Reactive Protein NT-Pro-B Natriuret Pep Total Protein Albumin LDL Cholesterol Direct Vitamin B12 Fluid Glucose Fluid Total Protein Vancomycin Trough 22.8 H Crossmatch 01/03/22 01/03/22 01/03/22 04:53 06:23 17:35 WBC RBC Hgb Hct MCV MCH MCHC RDW Plt Count Seg Neuts % (Manual) Lymphocytes % (Manual) Seg Neutrophils # Man Lymphocytes # (Manual) Monocytes # (Manual) PT INR D-Dimer ABG pH ABG pO2 ABG HCO3 ABG O2 Saturation ABG Base Excess ABG Hemoglobin Oxyhemoglobin Sodium 133 L Potassium Chloride 96.2 L Carbon Dioxide BUN 30 H Creatinine Glucose 107 H POC Glucose 122 H 107 H Lactic Acid Calcium Phosphorus Magnesium AST ALT Alkaline Phosphatase Lactate Dehydrogenase Troponin T C-Reactive Protein NT-Pro-B Natriuret Pep Total Protein Albumin LDL Cholesterol Direct Vitamin B12 Fluid Glucose Fluid Total Protein Vancomycin Trough Crossmatch 01/04/22 01/04/22 01/04/22 04:00 12:32 16:45 WBC RBC Hgb Hct MCV MCH MCHC RDW Plt Count Seg Neuts % (Manual) Lymphocytes % (Manual) Seg Neutrophils # Man Lymphocytes # (Manual) Monocytes # (Manual) PT INR D-Dimer ABG pH ABG pO2 ABG HCO3 ABG O2 Saturation ABG Base Excess ABG Hemoglobin Oxyhemoglobin Sodium 132 L Potassium Chloride 92.8 L Carbon Dioxide BUN 30 H Creatinine Glucose 115 H POC Glucose 111 H 111 H Lactic Acid Calcium Phosphorus Magnesium 1.60 L AST ALT Alkaline Phosphatase Lactate Dehydrogenase Troponin T C-Reactive Protein NT-Pro-B Natriuret Pep Total Protein Albumin LDL Cholesterol Direct Vitamin B12 Fluid Glucose Fluid Total Protein Vancomycin Trough Crossmatch 01/05/22 01/05/22 01/05/22 04:30 04:30 17:04 WBC RBC 3.11 L Hgb 8.4 L Hct 25.5 L MCV MCH 27 L MCHC RDW 17.6 H Plt Count Seg Neuts % (Manual) Lymphocytes % (Manual) Seg Neutrophils # Man Lymphocytes # (Manual) Monocytes # (Manual) PT INR D-Dimer ABG pH ABG pO2 ABG HCO3 ABG O2 Saturation ABG Base Excess ABG Hemoglobin Oxyhemoglobin Sodium 135 L Potassium Chloride 93.6 L Carbon Dioxide BUN 29 H Creatinine Glucose POC Glucose 67 L Lactic Acid Calcium Phosphorus Magnesium AST ALT Alkaline Phosphatase Lactate Dehydrogenase Troponin T C-Reactive Protein NT-Pro-B Natriuret Pep Total Protein Albumin LDL Cholesterol Direct Vitamin B12 Fluid Glucose Fluid Total Protein Vancomycin Trough Crossmatch 01/05/22 01/06/22 01/06/22 23:27 04:06 04:06 WBC RBC 2.89 L Hgb 7.7 L Hct 23.8 L MCV MCH 27 L MCHC RDW 18.0 H Plt Count Seg Neuts % (Manual) Lymphocytes % (Manual) Seg Neutrophils # Man Lymphocytes # (Manual) Monocytes # (Manual) PT 16.9 H INR 1.23 H D-Dimer ABG pH ABG pO2 ABG HCO3 ABG O2 Saturation ABG Base Excess ABG Hemoglobin Oxyhemoglobin Sodium Potassium Chloride Carbon Dioxide BUN Creatinine Glucose POC Glucose 110 H Lactic Acid Calcium Phosphorus Magnesium AST ALT Alkaline Phosphatase Lactate Dehydrogenase Troponin T C-Reactive Protein NT-Pro-B Natriuret Pep Total Protein Albumin LDL Cholesterol Direct Vitamin B12 Fluid Glucose Fluid Total Protein Vancomycin Trough Crossmatch 01/06/22 01/06/22 01/06/22 04:06 13:40 23:41 WBC RBC Hgb Hct MCV MCH MCHC RDW Plt Count Seg Neuts % (Manual) Lymphocytes % (Manual) Seg Neutrophils # Man Lymphocytes # (Manual) Monocytes # (Manual) PT INR D-Dimer ABG pH ABG pO2 ABG HCO3 ABG O2 Saturation ABG Base Excess ABG Hemoglobin Oxyhemoglobin Sodium 132 L Potassium Chloride 92.3 L Carbon Dioxide BUN 26 H Creatinine Glucose 111 H POC Glucose 120 H Lactic Acid Calcium Phosphorus Magnesium AST ALT Alkaline Phosphatase Lactate Dehydrogenase Troponin T C-Reactive Protein NT-Pro-B Natriuret Pep Total Protein Albumin LDL Cholesterol Direct Vitamin B12 Fluid Glucose 96 H Fluid Total Protein < 3.0 L Vancomycin Trough Crossmatch 01/07/22 01/07/22 01/07/22 05:20 11:30 17:00 WBC RBC Hgb Hct MCV MCH MCHC RDW Plt Count Seg Neuts % (Manual) Lymphocytes % (Manual) Seg Neutrophils # Man Lymphocytes # (Manual) Monocytes # (Manual) PT INR D-Dimer ABG pH ABG pO2 ABG HCO3 ABG O2 Saturation ABG Base Excess ABG Hemoglobin Oxyhemoglobin Sodium Potassium Chloride Carbon Dioxide BUN Creatinine Glucose POC Glucose 111 H 113 H 121 H Lactic Acid Calcium Phosphorus Magnesium AST ALT Alkaline Phosphatase Lactate Dehydrogenase Troponin T C-Reactive Protein NT-Pro-B Natriuret Pep Total Protein Albumin LDL Cholesterol Direct Vitamin B12 Fluid Glucose Fluid Total Protein Vancomycin Trough Crossmatch 01/07/22 01/08/22 01/08/22 23:41 11:26 16:23 WBC RBC Hgb Hct MCV MCH MCHC RDW Plt Count Seg Neuts % (Manual) Lymphocytes % (Manual) Seg Neutrophils # Man Lymphocytes # (Manual) Monocytes # (Manual) PT INR D-Dimer ABG pH ABG pO2 ABG HCO3 ABG O2 Saturation ABG Base Excess ABG Hemoglobin Oxyhemoglobin Sodium Potassium Chloride Carbon Dioxide BUN Creatinine Glucose POC Glucose 110 H 129 H 118 H Lactic Acid Calcium Phosphorus Magnesium AST ALT Alkaline Phosphatase Lactate Dehydrogenase Troponin T C-Reactive Protein NT-Pro-B Natriuret Pep Total Protein Albumin LDL Cholesterol Direct Vitamin B12 Fluid Glucose Fluid Total Protein Vancomycin Trough Crossmatch 01/09/22 01/10/22 01/10/22 18:13 00:27 04:00 WBC RBC Hgb Hct MCV MCH MCHC RDW Plt Count Seg Neuts % (Manual) Lymphocytes % (Manual) Seg Neutrophils # Man Lymphocytes # (Manual) Monocytes # (Manual) PT INR D-Dimer ABG pH ABG pO2 ABG HCO3 ABG O2 Saturation ABG Base Excess ABG Hemoglobin Oxyhemoglobin Sodium 133 L Potassium Chloride 92.6 L Carbon Dioxide 31 H BUN 29 H Creatinine 0.5 L Glucose 115 H POC Glucose 118 H 111 H Lactic Acid Calcium Phosphorus Magnesium AST ALT Alkaline Phosphatase Lactate Dehydrogenase Troponin T C-Reactive Protein NT-Pro-B Natriuret Pep Total Protein Albumin LDL Cholesterol Direct Vitamin B12 Fluid Glucose Fluid Total Protein Vancomycin Trough Crossmatch 01/10/22 01/11/22 01/11/22 05:47 05:10 11:14 WBC RBC Hgb Hct MCV MCH MCHC RDW Plt Count Seg Neuts % (Manual) Lymphocytes % (Manual) Seg Neutrophils # Man Lymphocytes # (Manual) Monocytes # (Manual) PT INR D-Dimer ABG pH ABG pO2 ABG HCO3 ABG O2 Saturation ABG Base Excess ABG Hemoglobin Oxyhemoglobin Sodium Potassium Chloride Carbon Dioxide BUN Creatinine Glucose POC Glucose 106 H 118 H 136 H Lactic Acid Calcium Phosphorus Magnesium AST ALT Alkaline Phosphatase Lactate Dehydrogenase Troponin T C-Reactive Protein NT-Pro-B Natriuret Pep Total Protein Albumin LDL Cholesterol Direct Vitamin B12 Fluid Glucose Fluid Total Protein Vancomycin Trough Crossmatch 01/11/22 01/11/22 01/12/22 17:14 23:52 05:39 WBC RBC Hgb Hct MCV MCH MCHC RDW Plt Count Seg Neuts % (Manual) Lymphocytes % (Manual) Seg Neutrophils # Man Lymphocytes # (Manual) Monocytes # (Manual) PT INR D-Dimer ABG pH ABG pO2 ABG HCO3 ABG O2 Saturation ABG Base Excess ABG Hemoglobin Oxyhemoglobin Sodium Potassium Chloride Carbon Dioxide BUN Creatinine Glucose POC Glucose 117 H 110 H 110 H Lactic Acid Calcium Phosphorus Magnesium AST ALT Alkaline Phosphatase Lactate Dehydrogenase Troponin T C-Reactive Protein NT-Pro-B Natriuret Pep Total Protein Albumin LDL Cholesterol Direct Vitamin B12 Fluid Glucose Fluid Total Protein Vancomycin Trough Crossmatch Allied health notes reviewed: RT
[2022-01-12] MEDS: MELATONIN 5 MG TAB PO SCH (20:59)
[2022-01-12] MEDS: traZODone 50 MG TAB PO SCH (21:00)
[2022-01-12] MEDS: PRAVASTATIN 20 MG TAB FEEDTUBE SCH (21:00)
[2022-01-13] MEDS: LEVOTHYROXINE 125 MCG TAB FEEDTUBE SCH (05:55)
[2022-01-13] MEDS: ALPRAZolam 0.25 MG TAB FEEDTUBE PRN ×2 (05:55→20:29)
[2022-01-13] MEDS: SUCRALFATE 1 GM/10 ML ORAL LIQD FEEDTUBE SCH ×4 (05:55→23:25)
[2022-01-13] MEDS: ACETAMINOPHEN 325 MG/10.15 ML ORAL LIQD UNIT DOSE FEEDTUBE PRN (05:55)
[2022-01-13] MEDS: HYDROcodone/ACETAMINOPHEN 10-325MG TAB FEEDTUBE SCH ×3 (09:01→20:29)
[2022-01-13] MEDS: GABAPENTIN 100 MG CAP FEEDTUBE SCH (09:02)
[2022-01-13] MEDS: DOCUSATE SODIUM 100 MG/10 ML ORAL LIQD FEEDTUBE SCH ×2 (09:02→21:05)
[2022-01-13] MEDS: MIDODRINE 5 MG TAB FEEDTUBE SCH ×3 (09:02→17:14)
[2022-01-13] MEDS: POLYETHYLENE GLYCOL 3350 17 GM POWDER FEEDTUBE SCH (09:03)
[2022-01-13] MEDS: LANSOPRAZOLE 30 MG SOLUTAB FEEDTUBE SCH ×2 (09:03→21:05)
[2022-01-13] MEDS: SENNOSIDES ORAL LIQD 8.8 MG/5 ML ORAL LIQD FEEDTUBE SCH ×2 (09:04→21:12)
[2022-01-13] MEDS: SPIRONOLACTONE 25 MG TAB FEEDTUBE SCH (09:12)
[2022-01-13] MEDS: FUROSEMIDE 20 MG TAB PO SCH (09:13)
[2022-01-13] MEDS: busPIRone 5 MG TAB FEEDTUBE SCH ×2 (09:13→21:04)
[2022-01-13] MEDS: METOPROLOL TARTRATE 25 MG TAB FEEDTUBE SCH ×2 (09:13→21:05)
[2022-01-13] MEDS: QUEtiapine 25 MG TAB FEEDTUBE SCH ×2 (09:14→21:05)
[2022-01-13] MEDS: METOCLOPRAMIDE 10 MG/2 ML INJ IV PRN ×2 (09:15→21:04)
--- NOTE | 2022-01-13 12:33 | Progress Note ---
Assessment and Plan Assessment and plan: This is an 82-year-old female with DM, HTN , CHB s/p PPM, CAD s/p PCI and arthritis who presented to the emergency department on 11/04 for shortness of breath ongoing for the past 3 days, cough and according to family a fever of 102.2. Upon arrival of EMS patient was found to be tachypneic and hypoxic with SPO2 of 76% on room air which later improved to 88% on nonrebreather. Work-up in the emergency department included a CXR which showed bilateral interstitial pulmonary edema with bilateral pleural effusions and bibasilar opacities, leukocytosis and anemia with a hemoglobin of 6.1. Patient was admitted to the hospitalist service with acute anemia, acute hypoxic respiratory failure, bilateral pneumonia and COVID-19 PUI with consults to pulmonology, infectious disease and later cardiology. Patient was eventually intubated in the emergency department on 11/06. Hospital Course to date: 11/04/2021: Empiric therapy with iv levaquin/vancomycin. COVID PCR pending. Will consult ID. PCCM consulted, will follow recs. Hypotensive this AM, ordered bolus and fluids at 150 cc/hr. May require pressor support if bp does not improve. 11/05/2021: GBS on bcx +, currently on rocephin IV. Currently on bipap due to respiratory distress overnight. Worsening BL opacities on CXR. May be volume overload vs pneumonia. Unfortunately bp too low for lasix at this point. WIll continue levophed and bipap. Once able to tolerate, may do trial of albumin/lasix. Call attempt made to Niraj, no response. Will try again tomorrow to update. 11/06/2021: Decompensated overnight requiring intubation. CXR shows worsening interstitial infiltrates. Currenlty on dopamine, levophed, vasopressin. PICC line ordered. Advised RN to place gamble for I/O monitoring. Would benefit from diuresis but very volume overloaded. Prognosis guarded 11/08: Off sedation this am, remains unresponsive only grimace to pain. Hold all sedatives agents for now, patient is off pressors this am. Hypernatremia from today's lab- D5W X1bag, and low K repleted, repeat lab in the am. Severe constipation also noted from KUB, BR added. 11/09: Sudden SPO2 drop in the 60s this am. Patient was manually bagged and deep suctioned. Patient is currently stable on the vent, repeat CXR with no significant change. D/w CCM Mucomyst and brochodilator added. Patient mentation is unchanged, continue to hold off on sedative agents. Neurology consulted. 11/10: Acute DVT noted on bilateral lower extremity Doppler ultrasound therefore she was started on Lovenox treatment dose. Failed SBT. Hypernatremia and hyperchloremia noted, free water flush adjusted. 11/11: Patient noted to be febrile with increasing of the cytosis, UA/BC sent and CXR ordered. ID escalated antibiotics to cefepime. CXR demonstrated mucous plug, bedside bronchoscopy was performed and O ETT was changed over bougie from 6 cm to 7.5. Patient was noted to have a pneumothorax postprocedure and chest tube was placed. Family updated by [facility]. Free water flush increased and will add Jaswant supplementation. 11/12: Patient not noted to follow commands, hypernatremia worsen/persist, increasing free water flush, potassium and magnesium and phosphorus repleted. Hemoglobin noted to be 7./24.5 from 7.03/12 yesterday. We will continue to trend and monitor. Vent changes per [facility]. Repeat CXR showed no residual pneumothorax. Consider waterseal tomorrow. Given persistent leukocytosis antibiotics escalated to cefepime per ID. 11/13: Remains on cefepime and vancomycin, vent changes per [facility]. Anemia noted and given 1 unit PRBC. And beta-charleen held in setting of Levophed drip infusing. Remains on fentanyl drip. 11/14: Patient put on CPAP trial by [facility], will continue chest tube until after extubation. Will rest on assist control. CT brain was cancelled by radiology teacher and reordered. 11/15: Patient removed chest tube overnight. Will obtain cxr. remains on low dose levo. CTH completed with no acute findings. RT to place on CPAP. 11/16: Hypernatremia/hyperchloremia noted on the increase of day water flushes. Anemia noted and ordered PRBC. asked RT to place on cpap but not done yet 11/17: Patient remains on the vent, awake and following commands. H&H stable s/p 2units PRBCs. GI on consult, no intervention at this time. Will continue protonix gtt and serial H&H Q6hrs. Keep patient NPO for now, D5w added for hypernatremia and NPO status. Plan for IVC filter placement today by Vascular. 11/18: Patient is s/p IVC filter. H&H continue to trend down, hbg 6.1 this am, 1 unit of PRBCs ordered. Plan for possible EGD today by GI. Keep patient NPO, continue PPI drip and serial H&H Q6hrs. Electrolytes repleted, repeat lab in the am 11/19: S/p EGD- larger duodenal ulcer noted, see operative note. GI recommendations noted also noted. H&H stable this am. Keep patient on protonix gtt for now. Will keep patient NPO, continue IVF and serial H&H for now. Electrolytes repleted, repeat labs in the am 11/20: Very agitated and restless this am, fentanyl gtt resumed. Patient remains on protonix gtt, H&H remains stable. Will switch protonix gtt to IV BID, continue carafate and okay to resume meds at this time. Will F/u with GI to see if TF can be resumed. Gamble was reinserted overnight for retention. Electrolytes repleted, repeat in the am. Plan for possible PST today for possible extubation per CCM. 11/21: Patient is now on seroquel and patient's home buspar resumed. Patient more calm this morning, fentanyl gtt is off. H&H remains stable and patient is tolerating TF. Patient had a runs of Vtach/PVCs this am, BB added per Cardio. Continue daily PS and wean trial for possible extubation. 11/22: Back on fentanyl gtt overnight , RASS o to -1, following commands. Patient failed PST this am due to increased work of breathing and low SPO2, ABG pending. Patient is also with worsen pitting edema, lasix is still on hold. Will discuss with cardio and CCM to possibly resume lasix. 11/23: MARIA DEL CARMEN overnight. Patient failed PST again this am. Per CCM plan for possible trach and PEG, hold off on IV lasix for now. General surgery consulted and family is aware of possible Trach and PEG. 11/24: Trach/PEG pending this week, continue SBT/SAT as tolerated. No acute events reported overnight. 11/25: Patient was n.p.o. overnight and will remain n.p.o. tonight for trach/PEG tomorrow morning. She failed to support trial again. KUB obtained due to distended belly. 11/26: Patient scheduled for tracheostomy and PEG tube placement today, has been n.p.o. since midnight. No acute events reported overnight. [facility] ordered simethicone scheduled. 11/27: No acute events reported overnight, patient received trach/PEG yesterday. Has been on feedings since last night. Still awaiting LTAC placement. 11/28: Patient magnesium repleted, repeat a.m. labs, SBT 11/29: Patient complains of chest pain but ECG obtained which showed no acute findings, ordered troponin. Patient failed CPAP yesterday and was trialed again today. levophed was restarted but will aggressively wean 11/30: Patient failed SBT. Continue supportive care. Started gabapentin today 12/01: MARIA DEL CARMEN overnight. Continue daily PST. Case management to arrange possible placement 12/02: Report of dark stools overnight, patient is hemodynamically stable. H&H stable, patient is on PPI. Will continue to trend H&H. Continue daily PST as tolerated. Awaiting LTAC vs SNF placement. 12/03: Hypotensive overnight, requiring low dose pressors. S/p X3 days of gentle diurese. Will continue to monitor, wean off pressors as tolerated for MAP of 65. Patient Failed PST yesterday, case management to follow up with insurance for possible LTAC placement. Continue daily PST as tolerated. PT eval and treat ordered. 12/04: Increased agitation and anxiety overnight, remains on buspar and seroquel, trazadone added to promote rest. Patient is now working with PT, keep patient engage and awake during the day so she can rest at night. No BM for over 5 days, BR was adjusted. Patient did not tolerate PST again yesterday, continue daily PST as tolerated. Continue to titrate pressor for MAP above 65. Pending possible LTAC placement, case management to arrange. 12/05: Still not getting much rest overnight, will add melatonin for sleep. Continue to engage patient during the day and promote rest at night. TF was held due to concern for possible bleeding, H&H remains stable and stools normal this am. Resume TF and continue PPI and carafate. Remains on low dose levophed, titrate as tolerated. Continue daily PST. Possible LTAC placement, awaiting approval. 12/06: MARIA DEL CARMEN overnight. Patient rested overnight. Continue supportive measures. Daily PST as tolerated. Awaiting possible LTAC placement 12/07: MARIA DEL CARMEN overnight. Plan for Tpiece trial today. Continue current supportive measures. Possible LTAC placement 12/08: Patient placed on pressure support trial again today, started on Xanax, no acute events reported overnight. Awaiting insurance approval for LTAC. 12/09: Levophed discontinued, LTAC transfer denied, started on midodrine and Lasix, ultrasound chest pending, started on Xanax 0.[address] De León updated family at bedside today. Started on Dilaudid every 3 hours as needed. 12/10: Patient placed on CPAP trial this morning, no acute events reported overnight. Will order ultrasound-guided thoracentesis. 12/11: Patient had a thoracentesis today, will decrease Xanax dosage and continue midodrine and diuresing. Patient failed CPAP today. 12/12: Patient not tolerate CPAP trials today, no acute events reported overnight 12/13: No acute events overnight. continue PSV trials as tolerated. Daughter upd ated at bedside 12/14: Patient noted to be anemic today, ordered gastric occult. Patient seems to be oversedated therefore Xanax changed to as needed and fentanyl patch discontinued. We will continue to monitor hyponatremia. 12/15: MARIA DEL CARMEN overnight. s/p 1unit of PRBCs, H&H stable this am, no signs of any active bleeding. Continue daily PST as tolerated. Awaiting placement. 12/16: Hypertensive this am, Midodrine decreased. Continue daily PST. MARIA DEL CARMEN overnight 12/17: Patient Hgb dropped to 6 this am, no s/s of any active bleeding, VSS. Patient received 1unit of PRBC, will continue to trend H&H. Patient was pancultured and back on IV Abx due to persistent fevers yesterday. ID is also back on the case. Continue IV Abx per ID and f/u on cultures data for sensitivity. Patient also failed PST yesterday, continue daily PST as tolerated. Electrolytes repleted, repeat labs in the am. 12/18: Patient blood cultures is growing GPC 4 out 4 bottles. PICC line D/Rivas, patient is already on IV Abx-cefepine and Vanc and ID is following. Patient remains hemodynamically stable. Daily PST as tolerated adn PRN Benzo for anxiety. 12/19: MARIA DEL CARMEN overnight. Culture data noted, continue IV Abx per ID. Orders placed for repeat Bculture. Gamble D/C overnight, patient is voiding. Check bladder scan as needed for retention. Patient failed PST again today. Continue daily PST as tolerated. 12/20: Fevers improved, Cultures +MRSA, on Vanco per ID. Repeat 2D Echo to r/o endocarditis. Patient continue to fail PST, PEEP increased to 8 today. Continue pulmonary hygiene and vent wean per CCM. Sodium tab added for hyponatremia. 12/22: Patient on pressure support trial for approximately 4 hours today, midodrine dosage increased due to hypotension. Lasix discontinued. 12/23: Started on a.m. Seroquel dose, midodrine increased to 10 mg 3 times daily, 500 mL normal saline bolus. 12/24: Seroquel dose changed (25 every morning, 75 nightly). updated at bedside by Dr. De León. CPAP trials as tolerated. Continue vancomycin. Awaiting placement. 12/25: Continue CPAP as tolerated, added gasx for distention. Continue supportive care 12/26: Patient failed PSV this AM. no acute events overnight. 12/27: GI re-consulted due to abdominal distention. No acute events reported overnight. CPAP trials as tolerated. Dr. Mckenna will get a KUB to rule out possible obstruction. 12/28: KUB shows no acute process, CXR shows improvement. CPAP trials as tolerated. 12/29: CT Abd/pelvis noted with moderated bilateral pleural effusion, anasarca, and ascites. X1dose of IV lasix administered. D/w CCM and GI orders plan for thora and paracentesis by IR. Will also start patient on aldactone Qday. Patient is tolerating trickle feeds this am, continue TF and BR adjusted for constipation. Plan of care was discussed with patient and her at the bedside. Thorough discussion on patient's overall poor prognosis and that eddie ent will most likely be vent dependent. Patient's voiced understanding of the info given. All questions and concerns were voiced at this time. 12/30: Patient did not tolerate thoracentesis in IR yesterday due to change in LOC and hypoxia. Plan for possible bedside thoracentesis and paracentesis today. Patient remains afebrile. Patient required family partner IV abx therapy [id number] left, orders placed for a PICC. Patient remains with sign. Piting edema and anasarca, X1 does of PO Zaroxolyn and 2m of IV lasix given. Electrolytes repleted, repeat lab in the am. 12/31: Tolerated Rt. thoracentesis at the bedside yesterday, 1.4L removed. Patient remains stable on the vent this am, tolerating CPAP today PS dropped to 14. Recent CXR noted, left pleural effusion improved. Patient tolerated gentle diurese yesterday, good urine output reported. D/w CCM hold off on Left thoracentesis today, continue PO Aldactone and additonal zaroxolyn and IV lasix again today. F/u CXR in the am. 01/01: This am CXR noted with worsening bilateral pleural effusion. Patient is stable and tolerating PST this am, however PS is back up to 20 this am. BP is soft this am will hold off on IV diuretic for today, continue PO Aldactone. D/w CCM continue gentle diurese as tolerated. Will reassess in the am. Continue s upport care. 01/02: MARIA DEL CARMEN overnight. VSS this am, tolerating PST. X1dose of 25% IV Albumin following with 20mg IV Lasix today. Continue daily gentle diurese if hemodynamics tolerate it. Continue to monitor and replace electrolytes as needed 01/03: Abdominal distention and vomiting overnight, 600cc of gastric residual removed, TF held. KUB with no acute abnormality. Reglan added X2days, resume TF, and continue BR. Patient is tolerating PST this am. Hemodynamics remains stable, will continue gentle IV diurese. close monitoring to renal function and electrolytes. 01/04: Tolerating TF, nausea/vomiting resolved, last BM on 01/03. Continue Reglan X1 more day. Patient continue to tolerate PST. D/W CCM continue gentle diurese. F/U CXR in the am. Possible US thoracentesis tomorrow. 01/05: no acute events overnight. scheduled for thoracentesis today but procedure pushed to tomorrow. TF restarted and will be NPO post MN. 01/06: planned thoracentesis today. Working with CM for ltac/snf approval. 01/07: s/p thoracentesis 120 cc appears to have been removed. Pulm recommendations noted, agree with continued diuresis and weaning. Continued planning with CM for ltac/snf placement. 01/08: No new issues. Continue vent weaning per pulmonary. Continuing to work with CM for placement. 01/09: No new issues. Continue vent weaning per pulmonary. Continuing to work with CM for placement. Ordered BMP for tomorrow to check kidney function as patient is currently being diuresed. 01/10: No new issues. Continue vent weaning/diuresis as directed by pulmonary medicine.BMP demonstrates normal renal function and potassium. Sodium and Chloride consistent with prior labs. Will recheck BMP in 2 days. Placement continues to be an issue as patient has been denied at all facilities. Will reasses with CM on wednesday. 01/11: Emesis overnight. Do not suspect that she is obstructed as she had 2 BM reported. Will order Reglan prn, drop TF rate to goal of 30 cc/hr. Will continue to work on placement. 01/12: Per RN patient had reported that she was tired and did not want to persist in her current state of health. D/w patient Niraj at patient bedside and stated that I recommended the patient/family at least talk with hospice to get a better understanding of their care. He was agreeable. I spoke with Ms. Busby who will help set up referral for hospice service so that family can be educated and, if the patient chooses, can pursue this option. 01/13: Continue supportive care. Family discussing about hospice. Continue reinforcement and continue weaning as tolerated. Prognosis is guarded and poor. Patient is clinically stable to transfer to the next level of care has not required any escalation in management. Has been stable on the vent awake alert following commands. Assessment and Plan Neuro : Anxiety, chronic pain -Neurology consulted, appreciate recommendations -CT brain showed no acute events -EEG interpreted as abnormal record due to diffuse slowing noted throughout the recording, suggestive of encephalopathic process and/or drug effect, possibilities of postictal state cannot be totally excluded. Clinical correlation is in order -MRI brain not obtained-> patient has metal in her body -Repeat CT head with no acute findings -Reorientation as needed -Ammonia 42, B12 1823, TSH 1.5 -BuSpar, Seroquel, [place], gabapentin -prn xanax and Dilaudid Cardio: Acute Heart failure with reduced EF, h/o chronic heart block s/p PPM, H TN, CAD s/p PCI (2004), Moderate pulmonary HTN, cardiomyopathy -s/p vasopressor support with levophed -11/04 echocardiogram shows EF 30 to 35%, Moderate pulmonary HTN RVSP 49 -3/ echo with 35-40% EF -Cardiology consulted, appreciate recommendations -Continue beta-charleen and statin therapy -Midodrine (titrate as needed) -Not on aspirin due to allergy -Blood pressure monitoring per protocol -As needed nitroglycerin Resp: Acute hypoxic respiratory failure secondary to bilateral pneumonia, bilateral pleural effusion. Right pneumothorax (resolved) -COVID-19 PCR negative -Intubated on 11/06 with 6.00 ETT at 18 at the lip and changed over bougie on 11/11-7.50 ETT at 20 at the lip -See RT notes for titration -PSV as tolerated -Surgery consult for trach -Received trach/PEG on 11/26 -S/p bedside bronchoscopy on 11/11 complicated by pneumothorax -S/p chest tube placement for right pneumothorax and dislodgment by patient on -ABG/CXR per CCM -VAP bundle -Right chest wall ultrasound showed pleural effusion s/p chest tube -12/11 US thoracentesis removed 1L fluid -12/29 US thoracentesis removed 1.4L fluid -01/06 thoracentesis planned -SPO2 monitoring GI: S/p GI bleed, duodenal ulcer, transaminitis -GI consulted, appreciate recommendations-signed off -Nutrition consult for tube feeding, currently on nepro TF 45 cc/hr, dropped to 30 cc/hr due to concerns for emesis. -BR: Senokot -s/p peg 11/26 -H2 charleen -Carafate -24-hour +428 ml -10/2021 Gastric occult positive -> EGD-> duodenal ulcer -12/14 occult stool positive - reglan prn. : Urinary retention (resolved), hyponatremia, hypochloremia -Strict intake and output -Trend BMP ID: Septic shock (POA-resolved), bilateral pneumonia, MRSA bacteremia/pna -Infectious disease consulted, appreciate recommendations -COVID-19 PCR negative -Presented with fevers, leukocytosis and hypotension -11/04 blood cultures positive with a group B strep bacteremia 12/19 however repeat blood cultures on the with no growth to date -Echo showed no evidence of vegetation -repeat echo showed EF 35-40 % with no vegetations -ABX therapy: IV vancomycin for 4 weeks (12/16-01/26) -Monitor WBC and fever curve -Bedside bronchoscopy for mucous plug on CXR 11/11 -f/u blood cultures Heme: Acute DVT in the right external iliac vein, common femoral vein, superior aspect of femoral vein, Acute microcytic anemia -Evidenced on bilateral upper lower extremity ultrasound -S/p 7 unit PRBC -Trend CBC -Transfuse for hemoglobin less than 7 -heparin gtt dc d/t anemia -S/p IVC filter Endo: h/o DM and hypothyroidism -Continue home Synthroid -SSI -Accu-Cheks every 6 -Avoid hypoglycemia History Interval history: Patient seen and examined, still on the vent, although awake alert nonsedated, frustrated Hospitalist Physical - Physical exam Narrative exam: VITAL SIGNS: Reviewed. GENERAL: The patient appears normally developed, trach to vent vital signs as documented. Frail appearing elderly woman. HEAD: No signs of head trauma. EYES: Pupils are equal. Extraocular motions intact. EARS: Hearing grossly intact. MOUTH: Oropharynx is normal. NECK: No adenopathy, no JVD. Trach to vent CHEST: Bl rhonchi CARDIAC: Regular rate and rhythm. S1 and S2, without murmurs, gallops, or rubs. VASCULAR: No Edema. Peripheral pulses normal and equal in all extremities. ABDOMEN: Soft, non tender and non distended. No rebound or guarding, and no masses palpated. Bowel Sounds normal. MUSCULOSKELETAL: Good range of motion of all major joints. Extremities without clubbing, cyanosis or edema. NEUROLOGIC EXAM: Alert and oriented x 4. no focal sensory or strength deficits. PSYCHIATRIC: anxious appearing SKIN: detail exam as documented in skin assessment - Constitutional Vitals: Temp Pulse Resp BP Pulse Ox 96.5 F L 60 20 125/61 97 01/13/22 08:00 01/13/22 12:00 01/13/22 12:24 01/13/22 12:01/13/22 12:24 General appearance: Present: no acute distress, other (Trach and on the vent) HEART Score - HEART Score Troponin: Troponin T 0.045 ng/mL (0.00-0.029) H 11/29/21 20:15 Results - Labs CBC & Chem 7: 01/06/22 04:06 01/10/22 04:00 Labs: Laboratory Last Values WBC 7.7 K/mm3 (4.5-11.0) 01/06/22 04:06 RBC 2.89 M/mm3 (3.65-5.03) L 01/06/22 04:06 Hgb 7.7 gm/dl (10.1-14.3) L 01/06/22 04:06 Hct 23.8 % (30.3-42.9) L 01/06/22 04:06 MCV 82 fl (79-97) 01/06/22 04:06 MCH 27 pg (28-32) L 01/06/22 04:06 MCHC 33 % (30-34) 01/06/22 04:06 RDW 18.0 % (13.2-15.2) H 01/06/22 04:06 Plt Count 225 K/mm3 (140-440) 01/06/22 04:06 Add Manual Diff Complete 12/20/21 04:54 Total Counted 100 12/20/21 04:54 Seg Neutrophils % Scoop Driver 11/06/21 15:50 Seg Neuts % (Manual) 88.0 % (40.0-70.0) H 12/20/21 04:54 Band Neutrophils % 0 % 12/20/21 04:54 Lymphocytes % (Manual) 6.0 % (13.4-35.0) L 12/20/21 04:54 Reactive Lymphs % (Man) 0 % 12/20/21 04:54 Monocytes % (Manual) 5.0 % (0.0-7.3) 12/20/21 04:54 Eosinophils % (Manual) 1.0 % (0.0-4.3) 12/20/21 04:54 Basophils % (Manual) 0 % (0.0-1.8) 12/20/21 04:54 Metamyelocytes % 0 % 12/20/21 04:54 Myelocytes % 0 % 12/20/21 04:54 Promyelocytes % 0 % 12/20/21 04:54 Blast Cells % 0 % 12/20/21 04:54 Nucleated RBC % Not Reportable 12/20/21 04:54 Seg Neutrophils # Man 10.8 K/mm3 (1.8-7.7) H 12/20/21 04:54 Band Neutrophils # 0.0 K/mm3 12/20/21 04:54 Lymphocytes # (Manual) 0.7 K/mm3 (1.2-5.4) L 12/20/21 04:54 Abs React Lymphs (Man) 0.0 K/mm3 12/20/21 04:54 Monocytes # (Manual) 0.6 K/mm3 (0.0-0.8) 12/20/21 04:54 Eosinophils # (Manual) 0.1 K/mm3 (0.0-0.4) 12/20/21 04:54 Basophils # (Manual) 0.0 K/mm3 (0.0-0.1) 12/20/21 04:54 Metamyelocytes # 0.0 K/mm3 12/20/21 04:54 Myelocytes # 0.0 K/mm3 12/20/21 04:54 Promyelocytes # 0.0 K/mm3 12/20/21 04:54 Blast Cells # 0.0 K/mm3 12/20/21 04:54 WBC Morphology Not Reportable 12/20/21 04:54 Hypersegmented Neuts Not Reportable 12/20/21 04:54 Hyposegmented Neuts Not Reportable 12/20/21 04:54 Hypogranular Neuts Not Reportable 12/20/21 04:54 Smudge Cells Not Reportable 12/20/21 04:54 Toxic Granulation Not Reportable 12/20/21 04:54 Toxic Vacuolation Not Reportable 12/20/21 04:54 Dohle Bodies Not Reportable 12/20/21 04:54 Pelger-Huet Anomaly Not Reportable 12/20/21 04:54 Irina Rods Not Reportable 12/20/21 04:54 Platelet Estimate Consistent w auto 12/20/21 04:54 Clumped Platelets Not Reportable 12/20/21 04:54 Plt Clumps, EDTA Not Reportable 12/20/21 04:54 Large Platelets Not Reportable 12/20/21 04:54 Giant Platelets Not Reportable 12/20/21 04:54 Platelet Satelliting Not Reportable 12/20/21 04:54 Plt Morphology Comment Not Reportable 12/20/21 04:54 RBC Morphology Not Reportable 12/20/21 04:54 Dimorphic RBCs Not Reportable 12/20/21 04:54 Polychromasia Not Reportable 12/20/21 04:54 Hypochromasia Not Reportable 12/20/21 04:54 Poikilocytosis Not Reportable 12/20/21 04:54 Anisocytosis 1+ 12/20/21 04:54 Microcytosis Not Reportable 12/20/21 04:54 Macrocytosis Not Reportable 12/20/21 04:54 Spherocytes Not Reportable 12/20/21 04:54 Pappenheimer Bodies Not Reportable 12/20/21 04:54 Sickle Cells Not Reportable 12/20/21 04:54 Target Cells Not Reportable 12/20/21 04:54 Tear Drop Cells Not Reportable 12/20/21 04:54 Ovalocytes Not Reportable 12/20/21 04:54 Helmet Cells Not Reportable 12/20/21 04:54 [place] Bodies Not Reportable 12/20/21 04:54 [place] Rings Not Reportable 12/20/21 04:54 [place] Cells Not Reportable 12/20/21 04:54 Bite Cells Not Reportable 12/20/21 04:54 Crenated Cell Not Reportable 12/20/21 04:54 Elliptocytes Not Reportable 12/20/21 04:54 Acanthocytes (Spur) Not Reportable 12/20/21 04:54 Rouleaux Not Reportable 12/20/21 04:54 Hemoglobin C Crystals Not Reportable 12/20/21 04:54 Schistocytes Not Reportable 12/20/21 04:54 Malaria parasites Not Reportable 12/20/21 04:54 [place] Bodies Not Reportable 12/20/21 04:54 Hem Pathologist Commnt No 12/20/21 04:54 PT 16.9 Sec. (12.2-14.9) H 01/06/22 04:06 INR 1.23 (0.87-1.13) H 01/06/22 04:06 APTT 29.2 Sec. (24.2-36.6) 11/26/21 05:00 D-Dimer 2655.00 ng/mlDDU (0-234) H 11/11/21 04:28 ABG pH 7.479 pH Units (7.350-7.450) H 12/16/21 20:52 ABG pCO2 37.5 mm Hg 12/16/21 20:52 ABG pO2 79.3 mm Hg (80.0-90.0) L 12/16/21 20:52 ABG HCO3 27.3 mmol/L (20.0-26.0) H 12/16/21 20:52 ABG O2 Saturation 97.0 % (95.0-99.0) 12/16/21 20: ABG O2 Content 12.3 (0.0-44) 12/16/21 20: ABG Base Excess 3.6 mmol/L (-2.0-3.0) H 12/16/21 20:52 ABG Hemoglobin 9.1 gm/dl (12.0-16.0) L 12/16/21 20:52 ABG Carboxyhemoglobin 1.6 % (0.0-5.0) 12/16/21 20: ABG Methemoglobin 0.5 % (0.0-1.5) 12/16/21 20: Oxyhemoglobin 94.9 % (95.0-99.0) L 12/16/21 20:52 FiO2 30 % 12/16/21 20:52 Sodium 133 mmol/L (137-145) L 01/10/22 04:00 Potassium 4.0 mmol/L (3.6-5.0) 01/10/22 04:00 Chloride 92.6 mmol/L (98-107) L 01/10/22 04:00 Carbon Dioxide 31 mmol/L (22-30) H 01/10/22 04:00 Anion Gap 13 mmol/L 01/10/22 04:00 BUN 29 mg/dL (7-17) H 01/10/22 04:00 Creatinine 0.5 mg/dL (0.6-1.2) L 01/10/22 04:00 Estimated GFR > 60 ml/min 01/10/22 04:00 BUN/Creatinine Ratio 58 % 01/10/22 04:00 Glucose 115 mg/dL (65-100) H 01/10/22 04:00 POC Glucose 98 mg/dL (70-105) 01/13/22 05:41 Lactic Acid 3.70 mmol/L (0.7-2.0) H* 11/03/21 22:32 Calcium 8.9 mg/dL (8.4-10.2) 01/10/22 04:00 Phosphorus 3.80 mg/dL (2.5-4.5) 01/05/22 04:30 Magnesium 2.00 mg/dL (1.7-2.3) 01/05/22 04:30 Ferritin 52.6 ng/mL (10.0-200.0) 11/05/21 06:11 Total Bilirubin 0.50 mg/dL (0.1-1.2) 11/17/21 05:56 Direct Bilirubin < 0.2 mg/dL (0-0.2) 11/11/21 04:28 Indirect Bilirubin 0.1 mg/dL 11/11/21 04:28 AST 36 units/L (5-40) 11/17/21 05:56 ALT 47 units/L (7-56) 11/17/21 05:56 Alkaline Phosphatase 107 units/L (35-129) 11/17/21 05:56 Ammonia 42.0 umol/L (25-60) 11/10/21 14:08 Lactate Dehydrogenase 187 units/L (91-180) H 11/05/21 06:11 Troponin T 0.045 ng/mL (0.00-0.029) H 11/29/21 20:15 C-Reactive Protein 22.20 mg/dL (0.00-1.30) H 11/05/21 06:11 NT-Pro-B Natriuret Pep 7895 pg/mL (0-900) H 11/03/21 22:32 Total Protein 5.1 g/dL (6.3-8.2) L 11/17/21 05:56 Albumin 2.2 g/dL (3.9-5) L 11/17/21 05:56 Albumin/Globulin Ratio 0.8 % 11/17/21 05:56 Triglycerides 59 mg/dL (2-149) 11/29/21 20:15 Cholesterol 74 mg/dL (50-199) 11/29/21 20:15 LDL Cholesterol Direct 25 mg/dL (50-130) L 11/29/21 20:15 HDL Cholesterol 41 mg/dL (40-59) 11/29/21 20:15 Cholesterol/HDL Ratio 1.80 % 11/29/21 20:15 Vitamin B12 1823 pg/mL (211-911) H 11/10/21 14:08 TSH 1.510 mlU/mL (0.270-4.200) 11/10/21 14:08 Urine Color Yellow (Yellow) 11/11/21 09:00 Urine Turbidity Slightly-cloudy (Clear) 11/11/21 09:00 Urine pH 5.0 (5.0-7.0) 11/11/21 09:00 Ur Specific [place] 1.009 (1.003-1.030) 11/11/21 09:00 Urine Protein <15 mg/dl mg/dL (Negative) 11/11/21 09:00 Urine Glucose (UA) Neg mg/dL (Negative) 11/11/21 09:00 Urine Ketones Neg mg/dL (Negative) 11/11/21 09:00 Urine Blood Mod (Negative) 11/11/21 09:00 Urine Nitrite Neg (Negative) 11/11/21 09:00 Urine Bilirubin Neg (Negative) 11/11/21 09:00 Urine Urobilinogen < 2.0 mg/dL (<2.0) 11/11/21 09:00 Ur Leukocyte Esterase Neg (Negative) 11/11/21 09:00 Urine WBC (Auto) < 1.0 /HPF (0.0-6.0) 11/11/21 09:00 Urine RBC (Auto) < 1.0 /HPF (0.0-6.0) 11/11/21 09:00 Fluid Type Pleural 01/06/22 13:40 Fluid Color Yellow 01/06/22 13:40 Fluid Appearance Hazy 01/06/22 13:40 Fluid WBC 273 /mm3 01/06/22 13:40 Fluid RBC 45 /mm3 01/06/22 13:40 Fluid Seg Neutrophils 47.0 % 01/06/22 13:40 Fluid Lymphocytes 22.0 % 01/06/22 13:40 Fluid Monocytes 10.0 % 01/06/22 13:40 Fluid Eosinophils 19.0 % 01/06/22 13:40 Fluid Basophils 2.0 % 01/06/22 13:40 Fluid Glucose 96 mg/dL (40-70) H 01/06/22 13:40 Fluid Total Protein < 3.0 (15.0-45.0) L 01/06/22 13:40 Fluid LDH 149 01/06/22 13:40 Vancomycin Trough 13.7 ug/mL (5.0-20.0) 01/08/22 06:33 Random Vancomycin 10.5 ug/mL (0-40.0) 01/04/22 05:00 Coronavirus (PCR) Negative (Negative) 11/10/21 08:30 Blood Type O POSITIVE 12/14/21 10:30 Antibody Screen Negative 12/14/21 10:30 Crossmatch See Detail 12/14/21 10:30 Gamble/IV: Voiding Method External Female Catheter Active Medications - Current Medications Current Medications: Generic Name Dose Route Start Last Admin Trade Name Freq PRN Reason Stop Dose Admin Acetaminophen 650 mg 12/14/21 04:12 01/13/22 05:55 Acetaminophen 325 Mg/10.15 Ml Oral Liqd Unit Dose FEEDTUBE 650 mg Q6H PRN Administration Non Cardiac Pain or Temp>100.5 Hydrocodone Bitart/Acetaminophen 1 each 11/21/21 10:00 01/13/22 09:01 Hydrocodone/Acetaminophen 10-325mg Tab FEEDTUBE 1 each TID YOSSI Administration Alprazolam 0.25 mg 12/30/21 09:00 01/13/22 05:55 Alprazolam 0.25 Mg Tab FEEDTUBE 0.25 mg Q8H PRN Administration Agitation Lipase/Protease/Amylase 1 each 11/08/21 11:09 Lipase 10,500/Protease 25,000/Amylase 43,750 (Units) Dr Lema FEEDTUBE PRN PRN For Clogged Feeding Tube Buspirone HCl 7.5 mg 12/30/21 10:00 01/13/22 09:13 Buspirone 5 Mg Tab FEEDTUBE 7.5 mg BID YOSSI Administration Dextrose 0 ml 11/10/21 10:52 12/30/21 00:48 Dextrose 10% *Hypoglycemia IV 50 ml PRN PRN Administration Hypoglycemia Docusate Sodium 100 mg 12/30/21 10:00 01/13/22 09:02 Docusate Sodium 100 Mg/10 Ml Oral Liqd FEEDTUBE 100 mg BID YOSSI Administration Furosemide 20 mg 01/08/22 10:00 01/13/22 09:13 Furosemide 20 Mg Tab PO 20 mg QDAY YOSSI Administration Gabapentin 100 mg 12/30/21 10:00 01/13/22 09:02 Gabapentin 100 Mg Cap FEEDTUBE 100 mg QDAY YOSSI Administration Hydrophilic Ointment 1 applic 11/06/21 04:02 Lip Therapy Vaseline TP Q2HR PRN Dry Lips Vancomycin HCl 1 gm in 250 mls @ 166.667 mls/hr 01/04/22 10:00 01/12/22 09:50 Vancomycin/Ns 1 Gm/250 Ml IV 01/26/22 11:29 166.667 mls/hr Q48H YOSSI Administration Lansoprazole 30 mg 11/24/21 22:00 01/13/22 09:03 Lansoprazole 30 Mg Solutab FEEDTUBE 30 mg BID YOSSI Administration Levothyroxine Sodium 125 mcg 12/31/21 06:00 01/13/22 05:55 Levothyroxine 125 Mcg Tab FEEDTUBE 125 mcg DAILY@0600 YOSSI Administration Melatonin 5 mg 12/05/21 22:00 01/12/22 20:59 Melatonin 5 Mg Tab PO 5 mg QHS YOSSI Administration Metoclopramide HCl 10 mg 01/11/22 13:25 01/13/22 09:15 Metoclopramide 10 Mg/2 Ml Inj IV 10 mg Q6H PRN Administration Nausea And Vomiting Metoprolol Tartrate 6.25 mg 12/30/21 10:00 01/13/22 09:13 Metoprolol Tartrate 25 Mg Tab FEEDTUBE Not Given BID YOSSI Midodrine 5 mg 12/30/21 09:00 01/13/22 09:02 Midodrine 5 Mg Tab FEEDTUBE 5 mg TID@0800,1200,1600 YOSSI Administration Multi-Ingred Cream/Lotion/Oil/Oint 1 applic 11/06/21 04:02 Mineral Oil/Petrolatum, White Ophth Oint 3.5 Gm OU Q4HR PRN Dry Eye(s) Ondansetron HCl 4 mg 12/05/21 10:00 01/11/22 21:30 Ondansetron 4 Mg/2 Ml Inj IV 4 mg Q8H PRN Administration Nausea And Vomiting Polyethylene Glycol 17 gm 12/30/21 10:00 01/13/22 09:03 Polyethylene Glycol 3350 17 Gm Powder FEEDTUBE Not Given QDAY YOSSI Pravastatin Sodium 20 mg 12/30/21 22:00 01/12/22 21:00 Pravastatin 20 Mg Tab FEEDTUBE 20 mg QHS YOSSI Administration Quetiapine Fumarate 25 mg 12/30/21 10:00 01/13/22 09:14 Quetiapine 25 Mg Tab FEEDTUBE 25 mg QAM YOSSI Administration Quetiapine Fumarate 50 mg 12/30/21 22:00 01/12/22 20:59 Quetiapine 25 Mg Tab FEEDTUBE 50 mg QHS YOSSI Administration Senna 17.6 mg 12/29/21 11:00 01/13/22 09:04 Sennosides Oral Liqd 8.8 Mg/5 Ml Oral Liqd FEEDTUBE 17.6 mg Q12HR YOSSI Administration Simple Syrup 15 ml 11/08/21 11:09 Simple Syrup 15 Ml FEEDTUBE PRN PRN Hypoglycemia Simple Syrup 30 ml 11/08/21 11:09 Simple Syrup 15 Ml FEEDTUBE PRN PRN Hypoglycemia Sodium Bicarbonate 325 mg 11/08/21 11:09 01/09/22 20:25 Sodium Bicarbonate 325 Mg Tab FEEDTUBE 325 mg PRN PRN Administration For Clogged Feeding Tube Sodium Chloride 10 ml 11/04/21 10:00 01/13/22 09:04 Sodium Chloride 0.9% 10 Ml Flush Syringe IV 10 ml BID YOSSI Administration Sodium Chloride 10 ml 11/04/21 02:03 01/09/22 06:35 Sodium Chloride 0.9% 10 Ml Flush Syringe IV 10 ml PRN PRN Administration LINE FLUSH Spironolactone 25 mg 12/30/21 10:00 01/13/22 09:12 Spironolactone 25 Mg Tab FEEDTUBE 25 mg QDAY YOSSI Administration Sucralfate 1 gm 12/30/21 12:00 01/13/22 05:55 Sucralfate 1 Gm/10 Ml Oral Liqd FEEDTUBE 1 gm Q6HR YOSSI Administration Trazodone HCl 50 mg 12/04/21 22:00 01/12/22 21:00 Trazodone 50 Mg Tab PO 50 mg QHS YOSSI Administration Nutrition/Malnutrition Assess - Dietary Evaluation Nutrition/Malnutrition Findings: Nutrition Notes Start: 11/04/21 17:16 Freq: Status: Active Protocol: Document 01/10/22 18:16 ISABELL (Rec: 01/10/22 18:44 ISABELL [id number]) Nutrition Notes Initial or Follow up Reassessment Current Diagnosis Diabetes,Heart Failure, Respiratory Failure Other Pertinent Diagnosis Bacteremia, Pneumonia, Bilateral Pleural Effusion, Agitation/Anxiety. Current Diet TF-Vital AF 1.2 Tamir @ 45 ml/hr (since D 12/22). Labs/Tests 01/10: Na 133, Cl 92.6, CO2 31 , BUN 29, Crea 0.5, Glu 115. Pertinent Medications 01/10: Levothyroxine, others nutritionally unremarkable. Height 5 ft Weight 73 kg Bruno Body Weight (kg) 45.45 BMI 31.4 Weight change and time frame 0.3 Kg body weight loss in 1 week reported. Weight Status Obese Subjective/Other Information RD consult for routine F/U on TF tolerance. TF continues as prescribed, well tolerated, according to RN notes. Pt continues on Mechanical Ventilation. Procedure on 01/07: US Toracentesis, TF off on 01/06 at 08:14, TF resumed after procedure. Well tolerated, according to RN notes. Pt still waiting for LTAC/SNF placement, unsuccessfully. Percent of energy/protein needs met: 102% Kcal; 89% AA. Burn Absent Trauma Absent GI Symptoms Other Food Allergy No Skin Integrity/Comment Surgical wounds. Current % PO Other Minimum of two criteria No #1 Nutrition Diagnosis Inadequate oral intake Diagnosis Progress(for reassessment Continues documentation) Is patient on ventilator? Yes Is Patient Ambulatory and/or Out of Bed No REE-([facility]-confined to bed) 1334.892 Kcal/Kg value to use for calculation 17 Approximate Energy Requirements Using 1241 kcal/Kg Calculation Used for Recommendations Kcal/kg Additional Notes Protein: 2 g/Kg IBW; 91 g/day. Fluids: 1 ml/Kcal, or as per MD. Nutrition Intervention Nutrition Support: Continue Vital AF 1.2 Tamir @ 45 ml/hr. Flush: 70 ml water Q 4 hr, or as per MD. Kcal 1,296 Protein (gm) 81 Carbohydrates (gm) 119 Fat (gm) 58 Fluid (mL) 876 Fiber (gm) 6 % RDI: 102% Kcal; 89% AA. Goal #1 Provide at least 75% of energy /protein needs through Enteral Feeding during LOS. Goal #2 Maintain body weight within +/ -3% of admission body weight during LOS. Follow-Up By: 01/16/22 Additional Comments Continue monitoring TF tolerance and BM. Mechanical Ventilation status.
--- NOTE | 2022-01-13 14:21 | Progress Note ---
Assessment and Plan Gram positive Bacteremia (MRSA) Acute respiratory failure with hypoxia, now on MVS Acute microcytic anemia Bilateral pneumonia DVT Left pleural effusion Cardiomyopathy EF 30-35% Moderate pulmonary HTN - continue Lasix 20 mg p.o. daily - follow I's & O's and monitor electrolytes - continue daily SAT and SBT assessment as tolerated - no new issues otherwise, continue care as below; - LTAC evaluation ongoing - continue Seroquel - continue Vancomycin for MRSA bacteremia (6 weeks of therapy recommended) - prn Levophed for target MAP > 65 mmHg - continue to wean supplemental oxygen for target O2 sat's > 90% acutely - VAP bundle addressed - continue lung protective strategies - continue bronchodilators with routine trach care and pulmonary hygiene per RT - wean per pulmonary driven protocols otherwise - avoid nephrotoxins, renally dose all medications - continue accuchecks with glycemic control per SSI (While critically ill target blood glucose of 140-180 mg/dL; avoid hypoglycemia) - sedation prn for target RASS 0 to -1 - antibiotics per ID recommendations - continue to avoid benzodiazepine's, reduce the possibility of delirium - prn analgesia per CPOT score - Maintenance of sleep-wake cycle, avoid delirium - continue enteral nutritional support at goal rate as tolerated - G.I. & VTE prophylaxis - PT/OT/ROM exercises - continue mobility protocols for pressure ulcer prophylaxis - Monitor hemodynamics closely - continue other care per attending / other consultants - discharge planning ongoing concurrently COVID SPECIFIC INTERVENTIONS - COVID-19 PCR negative .... Re-evaluate in am & prn CONDITION: CRITICAL PROGNOSIS: GUARDED CODE STATUS: FULL CODE The high probability of a clinically significant, sudden or life-threatening deterioration of the [respiratory, cardiovascular & neurologic] system(s) required my full and direct attention, intervention and personal management. The aggregate critical care time was [32] minutes without overlap. Time includes spent on; [x] Data Review and interpretation [x] Patient assessment and monitoring of vital signs [x] Documentation [x] Medication orders and management Subjective Date of service: 01/13/22 Principal diagnosis: Septic shock; AHRF; Anemia; Pneumonia; pleural effusion; HFrEF; Pulm HTN Interval history: Patient is seen today for: Septic shock; Acute hypoxemic respiratory failure; Anemia; Bilateral pneumonia; Left pleural effusion; HFrEF 30-35%; Pulm HTN RVSP 49 Seen and examined at bedside; 24hour events reviewed; nursing and respiratory care staff consulted; no adverse overnight events reported to me; resting in bed; on PSV trial with p-supp @ 14 cm H2O; denies N/V/F/C Objective Vital Signs - 12hr 01/13/22 01/13/22 01/13/22 03:00 04:00 04:22 Temperature 97.6 F Pulse Rate 60 60 61 Pulse Rate [ 60 From Monitor] Respiratory 14 14 Rate Blood Pressure 94/39 95/41 122/62 O2 Sat by Pulse 100 100 100 Oximetry O2 Sat by Pulse Oximetry [ Assessment] 01/13/22 01/13/22 01/13/22 04:30 04:45 05:00 Temperature Pulse Rate 60 63 Pulse Rate [ From Monitor] Respiratory 14 Rate Blood Pressure 110/47 O2 Sat by Pulse 100 Oximetry O2 Sat by Pulse 100 Oximetry [ Assessment] 01/13/22 01/13/22 01/13/22 05:55 06:00 07:00 Temperature Pulse Rate 71 60 Pulse Rate [ From Monitor] Respiratory 16 15 14 Rate Blood Pressure 110/47 137/63 O2 Sat by Pulse 100 100 Oximetry O2 Sat by Pulse Oximetry [ Assessment] 01/13/22 01/13/22 01/13/22 08:00 09:00 09:15 Temperature 96.5 F L Pulse Rate 60 64 60 Pulse Rate [ 60 From Monitor] Respiratory 14 14 21 Rate Blood Pressure 93/41 112/65 93/41 O2 Sat by Pulse 100 88 97 Oximetry O2 Sat by Pulse Oximetry [ Assessment] 01/13/22 01/13/22 01/13/22 09:32 10:00 11:00 Temperature Pulse Rate 93 H 75 Pulse Rate [ From Monitor] Respiratory 27 H 14 Rate Blood Pressure 112/65 154/84 O2 Sat by Pulse 96 100 Oximetry O2 Sat by Pulse 99 Oximetry [ Assessment] 01/13/22 01/13/22 01/13/22 12:00 12:24 13:01 Temperature 98 F Pulse Rate 67 72 Pulse Rate [ 60 From Monitor] Respiratory 18 20 23 Rate Blood Pressure 125/61 126/57 O2 Sat by Pulse 97 97 94 Oximetry O2 Sat by Pulse Oximetry [ Assessment] Constitutional: alert, appears uncomfortable, other (trach to MVS, frail elderly woman with mildly increased respiratory effort at rest) Eyes: non-icteric ENT: oropharynx moist, other (+ Midline tracheostomy with minimal secretions) Neck: supple, no lymphadenopathy, no JVD Effort: mildly labored Ascultation: Bilateral: diminished breath sounds, rhonchi Percussion: Bilateral: not dull Cardiovascular: regular rate and rhythm, other (S1,S2) Gastrointestinal: normoactive bowel sounds, soft, non-tender, non-distended (protuberant) Integumentary: normal Extremities: no cyanosis, pink and warm, pulses normal, edema (upper etremities), anasarca Neurologic: non-focal exam (grossly), pupils equal and round, motor strength normal and Psychiatric: mood appropriate, anxious CBC and BMP: 01/06/22 04:06 01/10/22 04:00 ABG, PT/INR, D-dimer: ABG ABG pH 7.479 pH Units (7.350-7.450) H 12/16/21 20:52 ABG pCO2 37.5 mm Hg 12/16/21 20:52 ABG pO2 79.3 mm Hg (80.0-90.0) L 12/16/21 20:52 ABG O2 Saturation 97.0 % (95.0-99.0) 12/16/21 20:52 PT/INR, D-dimer PT 16.9 Sec. (12.2-14.9) H 01/06/22 04:06 INR 1.23 (0.87-1.13) H 01/06/22 04:06 D-Dimer 2655.00 ng/mlDDU (0-234) H 11/11/21 04:28 Abnormal lab findings: Abnormal Labs 11/03/21 11/03/21 11/03/21 22:32 22:32 22:32 WBC 29.3 H RBC 2.93 L Hgb 6.1 L Hct 21.9 L MCV 75 L MCH 21 L MCHC 28 L RDW 19.7 H Plt Count Seg Neuts % (Manual) 97.0 H Lymphocytes % (Manual) 3.0 L Seg Neutrophils # Man 28.4 H Lymphocytes # (Manual) 0.9 L Monocytes # (Manual) PT 18.6 H INR 1.40 H D-Dimer ABG pH ABG pO2 ABG HCO3 ABG O2 Saturation ABG Base Excess ABG Hemoglobin Oxyhemoglobin Sodium Potassium Chloride Carbon Dioxide 20 L BUN 33 H Creatinine Glucose 119 H POC Glucose Lactic Acid Calcium 8.3 L Phosphorus Magnesium AST ALT Alkaline Phosphatase Lactate Dehydrogenase Troponin T 0.035 H C-Reactive Protein NT-Pro-B Natriuret Pep Total Protein Albumin LDL Cholesterol Direct 34 L Vitamin B12 Fluid Glucose Fluid Total Protein Vancomycin Trough Crossmatch 11/03/21 11/03/21 11/03/21 22:32 22:32 23:57 WBC RBC Hgb Hct MCV MCH MCHC RDW Plt Count Seg Neuts % (Manual) Lymphocytes % (Manual) Seg Neutrophils # Man Lymphocytes # (Manual) Monocytes # (Manual) PT INR D-Dimer ABG pH ABG pO2 ABG HCO3 ABG O2 Saturation ABG Base Excess ABG Hemoglobin Oxyhemoglobin Sodium Potassium Chloride Carbon Dioxide BUN Creatinine Glucose POC Glucose Lactic Acid 3.70 H* Calcium Phosphorus Magnesium AST ALT Alkaline Phosphatase 139 H Lactate Dehydrogenase Troponin T C-Reactive Protein NT-Pro-B Natriuret Pep 7895 H Total Protein Albumin 3.5 L LDL Cholesterol Direct Vitamin B12 Fluid Glucose Fluid Total Protein Vancomycin Trough Crossmatch See Detail 11/04/21 11/04/21 11/05/21 00:59 13:58 00:51 WBC 27.9 H RBC 3.28 L Hgb 7.3 L Hct 25.5 L MCV 78 L MCH 22 L MCHC 29 L RDW 19.1 H Plt Count Seg Neuts % (Manual) 96.0 H Lymphocytes % (Manual) 2.0 L Seg Neutrophils # Man 26.8 H Lymphocytes # (Manual) 0.6 L Monocytes # (Manual) PT INR D-Dimer ABG pH ABG pO2 ABG HCO3 ABG O2 Saturation ABG Base Excess ABG Hemoglobin Oxyhemoglobin Sodium Potassium Chloride Carbon Dioxide BUN Creatinine Glucose POC Glucose Lactic Acid Calcium Phosphorus Magnesium AST ALT Alkaline Phosphatase Lactate Dehydrogenase Troponin T 0.051 H D 0.032 H D C-Reactive Protein NT-Pro-B Natriuret Pep Total Protein Albumin LDL Cholesterol Direct Vitamin B12 Fluid Glucose Fluid Total Protein Vancomycin Trough Crossmatch 11/05/21 11/05/21 11/05/21 06:11 06:11 06:11 WBC 31.8 H RBC 3.57 L Hgb 8.0 L Hct 27.7 L MCV 78 L MCH 22 L MCHC 29 L RDW 19.2 H Plt Count Seg Neuts % (Manual) 91.0 H Lymphocytes % (Manual) 4.5 L Seg Neutrophils # Man 28.9 H Lymphocytes # (Manual) Monocytes # (Manual) 1.1 H PT INR D-Dimer 1494.53 H ABG pH ABG pO2 ABG HCO3 ABG O2 Saturation ABG Base Excess ABG Hemoglobin Oxyhemoglobin Sodium Potassium Chloride Carbon Dioxide 19 L BUN 42 H Creatinine Glucose 115 H POC Glucose Lactic Acid Calcium Phosphorus Magnesium AST 43 H ALT Alkaline Phosphatase Lactate Dehydrogenase 187 H Troponin T C-Reactive Protein 22.20 H NT-Pro-B Natriuret Pep Total Protein 6.0 L Albumin 3.2 L LDL Cholesterol Direct Vitamin B12 Fluid Glucose Fluid Total Protein Vancomycin Trough Crossmatch 11/05/21 11/05/21 11/06/21 06:11 12:15 00:30 WBC RBC Hgb Hct MCV MCH MCHC RDW Plt Count Seg Neuts % (Manual) Lymphocytes % (Manual) Seg Neutrophils # Man Lymphocytes # (Manual) Monocytes # (Manual) PT INR D-Dimer ABG pH ABG pO2 ABG HCO3 ABG O2 Saturation ABG Base Excess ABG Hemoglobin Oxyhemoglobin Sodium Potassium Chloride Carbon Dioxide BUN Creatinine Glucose POC Glucose 113 H 69 L Lactic Acid Calcium Phosphorus Magnesium AST ALT Alkaline Phosphatase Lactate Dehydrogenase Troponin T 0.033 H C-Reactive Protein NT-Pro-B Natriuret Pep Total Protein Albumin LDL Cholesterol Direct Vitamin B12 Fluid Glucose Fluid Total Protein Vancomycin Trough Crossmatch 11/06/21 11/06/21 11/06/21 05:50 15:50 15:50 WBC 25.5 H RBC 3.62 L Hgb 8.0 L Hct 27.5 L MCV 76 L MCH 22 L MCHC 29 L RDW 19.6 H Plt Count Seg Neuts % (Manual) 92.0 H Lymphocytes % (Manual) 5.0 L Seg Neutrophils # Man 23.5 H Lymphocytes # (Manual) Monocytes # (Manual) PT INR D-Dimer ABG pH 7.305 L ABG pO2 ABG HCO3 15.8 L ABG O2 Saturation ABG Base Excess -9.6 L ABG Hemoglobin 8.6 L Oxyhemoglobin 94.6 L Sodium Potassium Chloride 113.9 H Carbon Dioxide 17 L BUN 56 H Creatinine Glucose 114 H POC Glucose Lactic Acid Calcium 7.9 L Phosphorus Magnesium AST 1410 H ALT 934 H Alkaline Phosphatase 142 H Lactate Dehydrogenase Troponin T C-Reactive Protein NT-Pro-B Natriuret Pep Total Protein 5.0 L Albumin 2.6 L LDL Cholesterol Direct Vitamin B12 Fluid Glucose Fluid Total Protein Vancomycin Trough Crossmatch 11/07/21 11/07/21 11/07/21 03:30 04:50 08:07 WBC RBC Hgb Hct MCV MCH MCHC RDW Plt Count Seg Neuts % (Manual) Lymphocytes % (Manual) Seg Neutrophils # Man Lymphocytes # (Manual) Monocytes # (Manual) PT INR D-Dimer ABG pH ABG pO2 296.9 H ABG HCO3 18.1 L ABG O2 Saturation 99.5 H ABG Base Excess -5.9 L ABG Hemoglobin 7.6 L Oxyhemoglobin Sodium Potassium Chloride Carbon Dioxide BUN Creatinine Glucose POC Glucose 106 H 108 H Lactic Acid Calcium Phosphorus Magnesium AST ALT Alkaline Phosphatase Lactate Dehydrogenase Troponin T C-Reactive Protein NT-Pro-B Natriuret Pep Total Protein Albumin LDL Cholesterol Direct Vitamin B12 Fluid Glucose Fluid Total Protein Vancomycin Trough Crossmatch 11/08/21 11/08/21 11/08/21 03:10 18:05 23:43 WBC RBC Hgb Hct MCV MCH MCHC RDW Plt Count Seg Neuts % (Manual) Lymphocytes % (Manual) Seg Neutrophils # Man Lymphocytes # (Manual) Monocytes # (Manual) PT INR D-Dimer ABG pH ABG pO2 127.4 H ABG HCO3 ABG O2 Saturation ABG Base Excess -3.4 L ABG Hemoglobin 7.4 L Oxyhemoglobin Sodium Potassium Chloride Carbon Dioxide BUN Creatinine Glucose POC Glucose 113 H 141 H Lactic Acid Calcium Phosphorus Magnesium AST ALT Alkaline Phosphatase Lactate Dehydrogenase Troponin T C-Reactive Protein NT-Pro-B Natriuret Pep Total Protein Albumin LDL Cholesterol Direct Vitamin B12 Fluid Glucose Fluid Total Protein Vancomycin Trough Crossmatch 11/08/21 11/08/21 11/09/21 Unknown Unknown 02:00 WBC 14.5 H RBC 3.35 L Hgb 7.5 L 8.1 L Hct 25.4 L 27.6 L MCV 76 L 76 L MCH 23 L 22 L MCHC RDW 19.9 H 19.9 H Plt Count Seg Neuts % (Manual) Lymphocytes % (Manual) Seg Neutrophils # Man Lymphocytes # (Manual) Monocytes # (Manual) PT INR D-Dimer ABG pH ABG pO2 ABG HCO3 ABG O2 Saturation ABG Base Excess ABG Hemoglobin Oxyhemoglobin Sodium 154 H D Potassium 3.3 L Chloride 120.7 H Carbon Dioxide 20 L BUN 38 H Creatinine Glucose POC Glucose Lactic Acid Calcium 8.3 L Phosphorus Magnesium AST ALT Alkaline Phosphatase Lactate Dehydrogenase Troponin T C-Reactive Protein NT-Pro-B Natriuret Pep Total Protein Albumin LDL Cholesterol Direct Vitamin B12 Fluid Glucose Fluid Total Protein Vancomycin Trough Crossmatch 11/09/21 11/09/21 11/09/21 02:00 02:31 05:12 WBC RBC Hgb Hct MCV MCH MCHC RDW Plt Count Seg Neuts % (Manual) Lymphocytes % (Manual) Seg Neutrophils # Man Lymphocytes # (Manual) Monocytes # (Manual) PT INR D-Dimer ABG pH 7.479 H ABG pO2 121.3 H ABG HCO3 ABG O2 Saturation ABG Base Excess ABG Hemoglobin 7.3 L Oxyhemoglobin Sodium Potassium Chloride 112.5 H Carbon Dioxide BUN 33 H Creatinine Glucose 161 H POC Glucose 135 H Lactic Acid Calcium Phosphorus Magnesium AST 251 H ALT 481 H Alkaline Phosphatase Lactate Dehydrogenase Troponin T C-Reactive Protein NT-Pro-B Natriuret Pep Total Protein 5.0 L Albumin 2.8 L LDL Cholesterol Direct Vitamin B12 Fluid Glucose Fluid Total Protein Vancomycin Trough Crossmatch 11/09/21 11/09/21 11/09/21 11:33 16:32 23:28 WBC RBC Hgb Hct MCV MCH MCHC RDW Plt Count Seg Neuts % (Manual) Lymphocytes % (Manual) Seg Neutrophils # Man Lymphocytes # (Manual) Monocytes # (Manual) PT INR D-Dimer ABG pH ABG pO2 ABG HCO3 ABG O2 Saturation ABG Base Excess ABG Hemoglobin Oxyhemoglobin Sodium Potassium Chloride Carbon Dioxide BUN Creatinine Glucose POC Glucose 132 H 133 H 143 H Lactic Acid Calcium Phosphorus Magnesium AST ALT Alkaline Phosphatase Lactate Dehydrogenase Troponin T C-Reactive Protein NT-Pro-B Natriuret Pep Total Protein Albumin LDL Cholesterol Direct Vitamin B12 Fluid Glucose Fluid Total Protein Vancomycin Trough Crossmatch 11/10/21 11/10/21 11/10/21 04:00 04:00 05:35 WBC 16.0 H RBC 3.61 L Hgb 8.0 L Hct 27.1 L MCV 75 L MCH 22 L MCHC RDW 20.4 H Plt Count Seg Neuts % (Manual) Lymphocytes % (Manual) Seg Neutrophils # Man Lymphocytes # (Manual) Monocytes # (Manual) PT INR D-Dimer ABG pH ABG pO2 ABG HCO3 ABG O2 Saturation ABG Base Excess ABG Hemoglobin Oxyhemoglobin Sodium 149 H Potassium Chloride 114.1 H Carbon Dioxide BUN 31 H Creatinine Glucose 148 H POC Glucose 132 H Lactic Acid Calcium 8.2 L Phosphorus Magnesium AST ALT Alkaline Phosphatase Lactate Dehydrogenase Troponin T C-Reactive Protein NT-Pro-B Natriuret Pep Total Protein Albumin LDL Cholesterol Direct Vitamin B12 Fluid Glucose Fluid Total Protein Vancomycin Trough Crossmatch 11/10/21 11/10/21 11/10/21 11:31 14:08 15:35 WBC RBC Hgb Hct MCV MCH MCHC RDW Plt Count Seg Neuts % (Manual) Lymphocytes % (Manual) Seg Neutrophils # Man Lymphocytes # (Manual) Monocytes # (Manual) PT INR D-Dimer ABG pH ABG pO2 126.6 H ABG HCO3 ABG O2 Saturation ABG Base Excess ABG Hemoglobin 7.4 L Oxyhemoglobin Sodium Potassium Chloride Carbon Dioxide BUN Creatinine Glucose POC Glucose 147 H Lactic Acid Calcium Phosphorus Magnesium AST ALT Alkaline Phosphatase Lactate Dehydrogenase Troponin T C-Reactive Protein NT-Pro-B Natriuret Pep Total Protein Albumin LDL Cholesterol Direct Vitamin B12 1823 H Fluid Glucose Fluid Total Protein Vancomycin Trough Crossmatch 11/10/21 11/11/21 11/11/21 17:53 00:55 04:28 WBC RBC Hgb Hct MCV MCH MCHC RDW Plt Count Seg Neuts % (Manual) Lymphocytes % (Manual) Seg Neutrophils # Man Lymphocytes # (Manual) Monocytes # (Manual) PT INR D-Dimer ABG pH ABG pO2 ABG HCO3 ABG O2 Saturation ABG Base Excess ABG Hemoglobin Oxyhemoglobin Sodium 149 H Potassium Chloride 112.2 H Carbon Dioxide BUN 34 H Creatinine Glucose 148 H POC Glucose 140 H 145 H Lactic Acid Calcium 7.9 L Phosphorus Magnesium AST 53 H ALT 203 H Alkaline Phosphatase Lactate Dehydrogenase Troponin T C-Reactive Protein NT-Pro-B Natriuret Pep Total Protein 4.9 L Albumin 2.6 L LDL Cholesterol Direct Vitamin B12 Fluid Glucose Fluid Total Protein Vancomycin Trough Crossmatch 11/11/21 11/11/21 11/11/21 04:28 04:28 05:28 WBC 20.9 H RBC 3.47 L Hgb 7.5 L Hct 26.0 L MCV 75 L MCH 22 L MCHC 29 L RDW 21.6 H Plt Count 132 L Seg Neuts % (Manual) Lymphocytes % (Manual) Seg Neutrophils # Man Lymphocytes # (Manual) Monocytes # (Manual) PT INR D-Dimer 2655.00 H ABG pH ABG pO2 ABG HCO3 ABG O2 Saturation ABG Base Excess ABG Hemoglobin Oxyhemoglobin Sodium Potassium Chloride Carbon Dioxide BUN Creatinine Glucose POC Glucose 154 H Lactic Acid Calcium Phosphorus Magnesium AST ALT Alkaline Phosphatase Lactate Dehydrogenase Troponin T C-Reactive Protein NT-Pro-B Natriuret Pep Total Protein Albumin LDL Cholesterol Direct Vitamin B12 Fluid Glucose Fluid Total Protein Vancomycin Trough Crossmatch 11/11/21 11/11/21 11/12/21 12:38 18:13 00:14 WBC RBC Hgb Hct MCV MCH MCHC RDW Plt Count Seg Neuts % (Manual) Lymphocytes % (Manual) Seg Neutrophils # Man Lymphocytes # (Manual) Monocytes # (Manual) PT INR D-Dimer ABG pH ABG pO2 ABG HCO3 ABG O2 Saturation ABG Base Excess ABG Hemoglobin Oxyhemoglobin Sodium Potassium Chloride Carbon Dioxide BUN Creatinine Glucose POC Glucose 137 H 108 H 137 H Lactic Acid Calcium Phosphorus Magnesium AST ALT Alkaline Phosphatase Lactate Dehydrogenase Troponin T C-Reactive Protein NT-Pro-B Natriuret Pep Total Protein Albumin LDL Cholesterol Direct Vitamin B12 Fluid Glucose Fluid Total Protein Vancomycin Trough Crossmatch 11/12/21 11/12/21 11/12/21 05:40 06:24 11:12 WBC RBC Hgb Hct MCV MCH MCHC RDW Plt Count Seg Neuts % (Manual) Lymphocytes % (Manual) Seg Neutrophils # Man Lymphocytes # (Manual) Monocytes # (Manual) PT INR D-Dimer ABG pH 7.586 H ABG pO2 150.6 H ABG HCO3 27.2 H ABG O2 Saturation 99.1 H ABG Base Excess 5.2 H ABG Hemoglobin 7.5 L Oxyhemoglobin Sodium Potassium Chloride Carbon Dioxide BUN Creatinine Glucose POC Glucose 132 H 140 H Lactic Acid Calcium Phosphorus Magnesium AST ALT Alkaline Phosphatase Lactate Dehydrogenase Troponin T C-Reactive Protein NT-Pro-B Natriuret Pep Total Protein Albumin LDL Cholesterol Direct Vitamin B12 Fluid Glucose Fluid Total Protein Vancomycin Trough Crossmatch 11/12/21 11/12/21 11/12/21 14:50 14:50 17:13 WBC 19.8 H RBC 3.27 L Hgb 7.1 L Hct 24.5 L MCV 75 L MCH 22 L MCHC 29 L RDW 22.3 H Plt Count Seg Neuts % (Manual) Lymphocytes % (Manual) Seg Neutrophils # Man Lymphocytes # (Manual) Monocytes # (Manual) PT INR D-Dimer ABG pH ABG pO2 ABG HCO3 ABG O2 Saturation ABG Base Excess ABG Hemoglobin Oxyhemoglobin Sodium 150 H Potassium 3.3 L Chloride 112.0 H Carbon Dioxide BUN 40 H Creatinine Glucose 151 H POC Glucose 121 H Lactic Acid Calcium 7.4 L Phosphorus 1.70 L Magnesium 1.40 L AST ALT Alkaline Phosphatase Lactate Dehydrogenase Troponin T C-Reactive Protein NT-Pro-B Natriuret Pep Total Protein Albumin LDL Cholesterol Direct Vitamin B12 Fluid Glucose Fluid Total Protein Vancomycin Trough Crossmatch 11/12/21 11/13/21 11/13/21 23:19 05:34 06:30 WBC RBC Hgb Hct MCV MCH MCHC RDW Plt Count Seg Neuts % (Manual) Lymphocytes % (Manual) Seg Neutrophils # Man Lymphocytes # (Manual) Monocytes # (Manual) PT INR D-Dimer ABG pH ABG pO2 ABG HCO3 ABG O2 Saturation ABG Base Excess ABG Hemoglobin Oxyhemoglobin Sodium 149 H Potassium Chloride 60.0 L Carbon Dioxide BUN 40 H Creatinine Glucose 146 H POC Glucose 113 H 132 H Lactic Acid Calcium 7.3 L Phosphorus Magnesium 2.40 H AST ALT 72 H Alkaline Phosphatase Lactate Dehydrogenase Troponin T C-Reactive Protein NT-Pro-B Natriuret Pep Total Protein 5.2 L Albumin 2.2 L LDL Cholesterol Direct Vitamin B12 Fluid Glucose Fluid Total Protein Vancomycin Trough Crossmatch 11/13/21 11/13/21 11/13/21 06:30 08:30 11:19 WBC 21.2 H RBC 3.12 L Hgb 6.8 L Hct 23.2 L MCV 74 L MCH 22 L MCHC 29 L RDW 22.2 H Plt Count 135 L Seg Neuts % (Manual) Lymphocytes % (Manual) Seg Neutrophils # Man Lymphocytes # (Manual) Monocytes # (Manual) PT INR D-Dimer ABG pH ABG pO2 ABG HCO3 ABG O2 Saturation ABG Base Excess ABG Hemoglobin Oxyhemoglobin Sodium Potassium Chloride Carbon Dioxide BUN Creatinine Glucose POC Glucose 136 H Lactic Acid Calcium Phosphorus Magnesium AST ALT Alkaline Phosphatase Lactate Dehydrogenase Troponin T C-Reactive Protein NT-Pro-B Natriuret Pep Total Protein Albumin LDL Cholesterol Direct Vitamin B12 Fluid Glucose Fluid Total Protein Vancomycin Trough Crossmatch See Detail 11/13/21 11/14/21 11/14/21 18:21 00:01 04:46 WBC 20.0 H RBC 3.41 L Hgb 7.9 L Hct 26.8 L MCV MCH 23 L MCHC 29 L RDW 24.0 H Plt Count Seg Neuts % (Manual) Lymphocytes % (Manual) Seg Neutrophils # Man Lymphocytes # (Manual) Monocytes # (Manual) PT INR D-Dimer ABG pH ABG pO2 ABG HCO3 ABG O2 Saturation ABG Base Excess ABG Hemoglobin Oxyhemoglobin Sodium Potassium Chloride Carbon Dioxide BUN Creatinine Glucose POC Glucose 149 H 141 H Lactic Acid Calcium Phosphorus Magnesium AST ALT Alkaline Phosphatase Lactate Dehydrogenase Troponin T C-Reactive Protein NT-Pro-B Natriuret Pep Total Protein Albumin LDL Cholesterol Direct Vitamin B12 Fluid Glucose Fluid Total Protein Vancomycin Trough Crossmatch 11/14/21 11/14/21 11/14/21 04:46 05:10 11:10 WBC RBC Hgb Hct MCV MCH MCHC RDW Plt Count Seg Neuts % (Manual) Lymphocytes % (Manual) Seg Neutrophils # Man Lymphocytes # (Manual) Monocytes # (Manual) PT INR D-Dimer ABG pH ABG pO2 ABG HCO3 ABG O2 Saturation ABG Base Excess ABG Hemoglobin Oxyhemoglobin Sodium 148 H Potassium Chloride 113.1 H Carbon Dioxide BUN 43 H Creatinine Glucose 140 H POC Glucose 132 H 133 H Lactic Acid Calcium 7.5 L Phosphorus Magnesium AST ALT Alkaline Phosphatase Lactate Dehydrogenase Troponin T C-Reactive Protein NT-Pro-B Natriuret Pep Total Protein Albumin LDL Cholesterol Direct Vitamin B12 Fluid Glucose Fluid Total Protein Vancomycin Trough Crossmatch 11/14/21 11/14/21 11/14/21 16:14 17:48 23:23 WBC RBC Hgb Hct MCV MCH MCHC RDW Plt Count Seg Neuts % (Manual) Lymphocytes % (Manual) Seg Neutrophils # Man Lymphocytes # (Manual) Monocytes # (Manual) PT INR D-Dimer ABG pH ABG pO2 ABG HCO3 28.0 H ABG O2 Saturation ABG Base Excess 3.1 H ABG Hemoglobin 5.8 L Oxyhemoglobin 94.8 L Sodium Potassium Chloride Carbon Dioxide BUN Creatinine Glucose POC Glucose 130 H 136 H Lactic Acid Calcium Phosphorus Magnesium AST ALT Alkaline Phosphatase Lactate Dehydrogenase Troponin T C-Reactive Protein NT-Pro-B Natriuret Pep Total Protein Albumin LDL Cholesterol Direct Vitamin B12 Fluid Glucose Fluid Total Protein Vancomycin Trough Crossmatch 11/15/21 11/15/21 11/15/21 05:20 05:50 05:50 WBC 19.9 H RBC 3.50 L Hgb 8.2 L Hct 27.9 L MCV MCH 23 L MCHC 29 L RDW 24.9 H Plt Count Seg Neuts % (Manual) Lymphocytes % (Manual) Seg Neutrophils # Man Lymphocytes # (Manual) Monocytes # (Manual) PT INR D-Dimer ABG pH ABG pO2 ABG HCO3 ABG O2 Saturation ABG Base Excess ABG Hemoglobin Oxyhemoglobin Sodium 149 H Potassium Chloride 112.0 H Carbon Dioxide BUN 48 H Creatinine Glucose 152 H POC Glucose 137 H Lactic Acid Calcium 7.9 L Phosphorus Magnesium AST ALT Alkaline Phosphatase Lactate Dehydrogenase Troponin T C-Reactive Protein NT-Pro-B Natriuret Pep Total Protein Albumin LDL Cholesterol Direct Vitamin B12 Fluid Glucose Fluid Total Protein Vancomycin Trough Crossmatch 11/15/21 11/15/21 11/15/21 12:12 17:07 23:24 WBC RBC Hgb Hct MCV MCH MCHC RDW Plt Count Seg Neuts % (Manual) Lymphocytes % (Manual) Seg Neutrophils # Man Lymphocytes # (Manual) Monocytes # (Manual) PT INR D-Dimer ABG pH ABG pO2 ABG HCO3 ABG O2 Saturation ABG Base Excess ABG Hemoglobin Oxyhemoglobin Sodium Potassium Chloride Carbon Dioxide BUN Creatinine Glucose POC Glucose 114 H 135 H 123 H Lactic Acid Calcium Phosphorus Magnesium AST ALT Alkaline Phosphatase Lactate Dehydrogenase Troponin T C-Reactive Protein NT-Pro-B Natriuret Pep Total Protein Albumin LDL Cholesterol Direct Vitamin B12 Fluid Glucose Fluid Total Protein Vancomycin Trough Crossmatch 11/16/21 11/16/21 11/16/21 05:21 10:00 10:00 WBC 21.7 H RBC 2.57 L Hgb 6.0 L Hct 20.2 L D MCV MCH 24 L MCHC RDW 26.3 H Plt Count Seg Neuts % (Manual) Lymphocytes % (Manual) Seg Neutrophils # Man Lymphocytes # (Manual) Monocytes # (Manual) PT INR D-Dimer ABG pH ABG pO2 ABG HCO3 ABG O2 Saturation ABG Base Excess ABG Hemoglobin Oxyhemoglobin Sodium 153 H Potassium Chloride 114.9 H Carbon Dioxide BUN 74 H Creatinine Glucose 155 H POC Glucose 127 H Lactic Acid Calcium 8.1 L Phosphorus Magnesium AST ALT Alkaline Phosphatase Lactate Dehydrogenase Troponin T C-Reactive Protein NT-Pro-B Natriuret Pep Total Protein Albumin LDL Cholesterol Direct Vitamin B12 Fluid Glucose Fluid Total Protein Vancomycin Trough Crossmatch 11/16/21 11/16/21 11/16/21 11:34 14:00 15:25 WBC 17.2 H RBC 2.08 L Hgb 4.7 L* Hct 16.2 L* MCV 78 L MCH 23 L MCHC 29 L RDW 26.0 H Plt Count Seg Neuts % (Manual) 87.0 H Lymphocytes % (Manual) 8.0 L Seg Neutrophils # Man 15.0 H Lymphocytes # (Manual) Monocytes # (Manual) 0.9 H PT INR D-Dimer ABG pH ABG pO2 ABG HCO3 ABG O2 Saturation ABG Base Excess ABG Hemoglobin Oxyhemoglobin Sodium Potassium Chloride Carbon Dioxide BUN Creatinine Glucose POC Glucose 131 H Lactic Acid Calcium Phosphorus Magnesium AST ALT Alkaline Phosphatase Lactate Dehydrogenase Troponin T C-Reactive Protein NT-Pro-B Natriuret Pep Total Protein Albumin LDL Cholesterol Direct Vitamin B12 Fluid Glucose Fluid Total Protein Vancomycin Trough Crossmatch See Detail 11/16/21 11/16/21 11/16/21 15:25 17:21 22:43 WBC RBC Hgb 8.6 L D Hct 27.7 L D MCV MCH MCHC RDW Plt Count Seg Neuts % (Manual) Lymphocytes % (Manual) Seg Neutrophils # Man Lymphocytes # (Manual) Monocytes # (Manual) PT INR D-Dimer ABG pH ABG pO2 ABG HCO3 ABG O2 Saturation ABG Base Excess ABG Hemoglobin Oxyhemoglobin Sodium 148 H Potassium Chloride 113.2 H Carbon Dioxide BUN 84 H Creatinine Glucose 164 H POC Glucose 124 H Lactic Acid Calcium 7.6 L Phosphorus Magnesium AST ALT Alkaline Phosphatase Lactate Dehydrogenase Troponin T C-Reactive Protein NT-Pro-B Natriuret Pep Total Protein Albumin LDL Cholesterol Direct Vitamin B12 Fluid Glucose Fluid Total Protein Vancomycin Trough Crossmatch 11/16/21 11/17/21 11/17/21 23:07 05:33 05:56 WBC 25.1 H RBC 3.47 L Hgb 8.7 L Hct 28.5 L MCV MCH 25 L MCHC RDW 22.3 H Plt Count Seg Neuts % (Manual) Lymphocytes % (Manual) Seg Neutrophils # Man Lymphocytes # (Manual) Monocytes # (Manual) PT INR D-Dimer ABG pH ABG pO2 ABG HCO3 ABG O2 Saturation ABG Base Excess ABG Hemoglobin Oxyhemoglobin Sodium Potassium Chloride Carbon Dioxide BUN Creatinine Glucose POC Glucose 128 H 133 H Lactic Acid Calcium Phosphorus Magnesium AST ALT Alkaline Phosphatase Lactate Dehydrogenase Troponin T C-Reactive Protein NT-Pro-B Natriuret Pep Total Protein Albumin LDL Cholesterol Direct Vitamin B12 Fluid Glucose Fluid Total Protein Vancomycin Trough Crossmatch 11/17/21 11/17/21 11/17/21 05:56 11:00 11:55 WBC RBC Hgb 8.3 L Hct 26.9 L MCV MCH MCHC RDW Plt Count Seg Neuts % (Manual) Lymphocytes % (Manual) Seg Neutrophils # Man Lymphocytes # (Manual) Monocytes # (Manual) PT INR D-Dimer ABG pH ABG pO2 ABG HCO3 ABG O2 Saturation ABG Base Excess ABG Hemoglobin Oxyhemoglobin Sodium 151 H Potassium Chloride 113.6 H Carbon Dioxide BUN 85 H Creatinine Glucose 132 H POC Glucose 121 H Lactic Acid Calcium 7.8 L Phosphorus Magnesium AST ALT Alkaline Phosphatase Lactate Dehydrogenase Troponin T C-Reactive Protein NT-Pro-B Natriuret Pep Total Protein 5.1 L Albumin 2.2 L LDL Cholesterol Direct Vitamin B12 Fluid Glucose Fluid Total Protein Vancomycin Trough Crossmatch 11/17/21 11/17/21 11/18/21 18:04 18:55 00:26 WBC RBC Hgb 7.5 L 7.1 L Hct 24.8 L 23.6 L MCV MCH MCHC RDW Plt Count Seg Neuts % (Manual) Lymphocytes % (Manual) Seg Neutrophils # Man Lymphocytes # (Manual) Monocytes # (Manual) PT INR D-Dimer ABG pH ABG pO2 ABG HCO3 ABG O2 Saturation ABG Base Excess ABG Hemoglobin Oxyhemoglobin Sodium Potassium Chloride Carbon Dioxide BUN Creatinine Glucose POC Glucose 144 H Lactic Acid Calcium Phosphorus Magnesium AST ALT Alkaline Phosphatase Lactate Dehydrogenase Troponin T C-Reactive Protein NT-Pro-B Natriuret Pep Total Protein Albumin LDL Cholesterol Direct Vitamin B12 Fluid Glucose Fluid Total Protein Vancomycin Trough Crossmatch 11/18/21 11/18/21 11/18/21 00:43 05:10 05:10 WBC 12.5 H RBC 2.39 L Hgb 6.1 L Hct 20.2 L MCV MCH 25 L MCHC RDW 23.2 H Plt Count Seg Neuts % (Manual) Lymphocytes % (Manual) Seg Neutrophils # Man Lymphocytes # (Manual) Monocytes # (Manual) PT INR D-Dimer ABG pH ABG pO2 ABG HCO3 ABG O2 Saturation ABG Base Excess ABG Hemoglobin Oxyhemoglobin Sodium 131 L D Potassium 2.9 L* D Chloride 97.8 L Carbon Dioxide BUN 58 H Creatinine Glucose 665 H* POC Glucose 139 H Lactic Acid Calcium 7.0 L Phosphorus 2.20 L D Magnesium 1.50 L AST ALT Alkaline Phosphatase Lactate Dehydrogenase Troponin T C-Reactive Protein NT-Pro-B Natriuret Pep Total Protein Albumin LDL Cholesterol Direct Vitamin B12 Fluid Glucose Fluid Total Protein Vancomycin Trough Crossmatch 11/18/21 11/18/21 11/18/21 05:23 07:10 10:45 WBC RBC Hgb Hct MCV MCH MCHC RDW Plt Count Seg Neuts % (Manual) Lymphocytes % (Manual) Seg Neutrophils # Man Lymphocytes # (Manual) Monocytes # (Manual) PT INR D-Dimer ABG pH ABG pO2 ABG HCO3 ABG O2 Saturation ABG Base Excess ABG Hemoglobin Oxyhemoglobin Sodium 148 H D Potassium 3.1 L Chloride 111.9 H Carbon Dioxide BUN 63 H Creatinine Glucose 141 H POC Glucose 124 H Lactic Acid Calcium 8.1 L D Phosphorus Magnesium AST ALT Alkaline Phosphatase Lactate Dehydrogenase Troponin T C-Reactive Protein NT-Pro-B Natriuret Pep Total Protein Albumin LDL Cholesterol Direct Vitamin B12 Fluid Glucose Fluid Total Protein Vancomycin Trough Crossmatch See Detail 11/18/21 11/19/21 11/19/21 11:57 00:19 04:55 WBC RBC 3.35 L Hgb 9.0 L 8.9 L Hct 28.3 L D 28.1 L MCV MCH 27 L MCHC RDW 20.3 H Plt Count Seg Neuts % (Manual) Lymphocytes % (Manual) Seg Neutrophils # Man Lymphocytes # (Manual) Monocytes # (Manual) PT INR D-Dimer ABG pH ABG pO2 ABG HCO3 ABG O2 Saturation ABG Base Excess ABG Hemoglobin Oxyhemoglobin Sodium Potassium Chloride Carbon Dioxide BUN Creatinine Glucose POC Glucose 119 H Lactic Acid Calcium Phosphorus Magnesium AST ALT Alkaline Phosphatase Lactate Dehydrogenase Troponin T C-Reactive Protein NT-Pro-B Natriuret Pep Total Protein Albumin LDL Cholesterol Direct Vitamin B12 Fluid Glucose Fluid Total Protein Vancomycin Trough Crossmatch 11/19/21 11/19/21 11/20/21 04:55 05:42 00:55 WBC RBC Hgb 9.0 L Hct 28.6 L MCV MCH MCHC RDW Plt Count Seg Neuts % (Manual) Lymphocytes % (Manual) Seg Neutrophils # Man Lymphocytes # (Manual) Monocytes # (Manual) PT INR D-Dimer ABG pH ABG pO2 ABG HCO3 ABG O2 Saturation ABG Base Excess ABG Hemoglobin Oxyhemoglobin Sodium Potassium 3.5 L Chloride 108.6 H Carbon Dioxide BUN 47 H Creatinine Glucose 207 H POC Glucose 63 L Lactic Acid Calcium 7.1 L Phosphorus Magnesium AST ALT Alkaline Phosphatase Lactate Dehydrogenase Troponin T C-Reactive Protein NT-Pro-B Natriuret Pep Total Protein Albumin LDL Cholesterol Direct Vitamin B12 Fluid Glucose Fluid Total Protein Vancomycin Trough Crossmatch 11/20/21 11/20/21 11/20/21 05:40 05:40 Unknown WBC RBC 3.40 L Hgb 9.1 L Hct 28.8 L MCV MCH 27 L MCHC RDW 20.7 H Plt Count Seg Neuts % (Manual) Lymphocytes % (Manual) Seg Neutrophils # Man Lymphocytes # (Manual) Monocytes # (Manual) PT INR D-Dimer ABG pH ABG pO2 ABG HCO3 ABG O2 Saturation ABG Base Excess -2.7 L ABG Hemoglobin 9.5 L Oxyhemoglobin 94.3 L Sodium Potassium 3.5 L Chloride 108.9 H Carbon Dioxide BUN 37 H Creatinine Glucose 117 H POC Glucose Lactic Acid Calcium 7.5 L Phosphorus Magnesium AST ALT Alkaline Phosphatase Lactate Dehydrogenase Troponin T C-Reactive Protein NT-Pro-B Natriuret Pep Total Protein Albumin LDL Cholesterol Direct Vitamin B12 Fluid Glucose Fluid Total Protein Vancomycin Trough Crossmatch 11/21/21 11/21/21 11/21/21 04:30 04:30 16:00 WBC RBC 3.25 L Hgb 8.6 L Hct 28.1 L MCV MCH 26 L MCHC RDW 20.7 H Plt Count Seg Neuts % (Manual) Lymphocytes % (Manual) Seg Neutrophils # Man Lymphocytes # (Manual) Monocytes # (Manual) PT INR D-Dimer ABG pH ABG pO2 114.2 H ABG HCO3 ABG O2 Saturation ABG Base Excess ABG Hemoglobin 9.1 L Oxyhemoglobin Sodium 134 L Potassium Chloride Carbon Dioxide 20 L BUN 34 H Creatinine Glucose POC Glucose Lactic Acid Calcium 7.1 L Phosphorus Magnesium AST ALT Alkaline Phosphatase Lactate Dehydrogenase Troponin T C-Reactive Protein NT-Pro-B Natriuret Pep Total Protein Albumin LDL Cholesterol Direct Vitamin B12 Fluid Glucose Fluid Total Protein Vancomycin Trough Crossmatch 11/22/21 11/22/21 11/22/21 07:07 07:07 23:54 WBC RBC 3.30 L Hgb 9.0 L Hct 28.5 L MCV MCH 27 L MCHC RDW 21.0 H Plt Count Seg Neuts % (Manual) Lymphocytes % (Manual) Seg Neutrophils # Man Lymphocytes # (Manual) Monocytes # (Manual) PT INR D-Dimer ABG pH ABG pO2 ABG HCO3 ABG O2 Saturation ABG Base Excess ABG Hemoglobin Oxyhemoglobin Sodium Potassium Chloride Carbon Dioxide BUN 32 H Creatinine Glucose 106 H POC Glucose 110 H Lactic Acid Calcium 7.5 L Phosphorus Magnesium AST ALT Alkaline Phosphatase Lactate Dehydrogenase Troponin T C-Reactive Protein NT-Pro-B Natriuret Pep Total Protein Albumin LDL Cholesterol Direct Vitamin B12 Fluid Glucose Fluid Total Protein Vancomycin Trough Crossmatch 11/23/21 11/23/21 11/23/21 04:38 04:38 06:01 WBC RBC 3.23 L Hgb 8.8 L Hct 28.0 L MCV MCH 27 L MCHC RDW 21.3 H Plt Count Seg Neuts % (Manual) Lymphocytes % (Manual) Seg Neutrophils # Man Lymphocytes # (Manual) Monocytes # (Manual) PT INR D-Dimer ABG pH ABG pO2 ABG HCO3 ABG O2 Saturation ABG Base Excess ABG Hemoglobin Oxyhemoglobin Sodium 136 L Potassium Chloride Carbon Dioxide 20 L BUN 32 H Creatinine Glucose 109 H POC Glucose 115 H Lactic Acid Calcium 7.7 L Phosphorus Magnesium AST ALT Alkaline Phosphatase Lactate Dehydrogenase Troponin T C-Reactive Protein NT-Pro-B Natriuret Pep Total Protein Albumin LDL Cholesterol Direct Vitamin B12 Fluid Glucose Fluid Total Protein Vancomycin Trough Crossmatch 11/23/21 11/24/21 11/24/21 11:40 00:03 04:13 WBC RBC 3.18 L Hgb 8.5 L Hct 27.5 L MCV MCH 27 L MCHC RDW 21.6 H Plt Count Seg Neuts % (Manual) Lymphocytes % (Manual) Seg Neutrophils # Man Lymphocytes # (Manual) Monocytes # (Manual) PT INR D-Dimer ABG pH ABG pO2 ABG HCO3 ABG O2 Saturation ABG Base Excess ABG Hemoglobin Oxyhemoglobin Sodium Potassium Chloride Carbon Dioxide BUN Creatinine Glucose POC Glucose 117 H 111 H Lactic Acid Calcium Phosphorus Magnesium AST ALT Alkaline Phosphatase Lactate Dehydrogenase Troponin T C-Reactive Protein NT-Pro-B Natriuret Pep Total Protein Albumin LDL Cholesterol Direct Vitamin B12 Fluid Glucose Fluid Total Protein Vancomycin Trough Crossmatch 11/24/21 11/24/21 11/24/21 04:13 05:30 11:10 WBC RBC Hgb Hct MCV MCH MCHC RDW Plt Count Seg Neuts % (Manual) Lymphocytes % (Manual) Seg Neutrophils # Man Lymphocytes # (Manual) Monocytes # (Manual) PT INR D-Dimer ABG pH ABG pO2 ABG HCO3 ABG O2 Saturation ABG Base Excess ABG Hemoglobin Oxyhemoglobin Sodium Potassium Chloride Carbon Dioxide BUN 31 H Creatinine Glucose 101 H POC Glucose 115 H 107 H Lactic Acid Calcium 7.7 L Phosphorus Magnesium AST ALT Alkaline Phosphatase Lactate Dehydrogenase Troponin T C-Reactive Protein NT-Pro-B Natriuret Pep Total Protein Albumin LDL Cholesterol Direct Vitamin B12 Fluid Glucose Fluid Total Protein Vancomycin Trough Crossmatch 11/24/21 11/24/21 11/25/21 16:34 17:57 05:12 WBC RBC 3.11 L Hgb 8.2 L Hct 26.6 L MCV MCH 26 L MCHC RDW 21.3 H Plt Count Seg Neuts % (Manual) Lymphocytes % (Manual) Seg Neutrophils # Man Lymphocytes # (Manual) Monocytes # (Manual) PT INR D-Dimer ABG pH ABG pO2 ABG HCO3 ABG O2 Saturation ABG Base Excess ABG Hemoglobin Oxyhemoglobin Sodium Potassium Chloride Carbon Dioxide BUN Creatinine Glucose POC Glucose 115 H 110 H Lactic Acid Calcium Phosphorus Magnesium AST ALT Alkaline Phosphatase Lactate Dehydrogenase Troponin T C-Reactive Protein NT-Pro-B Natriuret Pep Total Protein Albumin LDL Cholesterol Direct Vitamin B12 Fluid Glucose Fluid Total Protein Vancomycin Trough Crossmatch 11/25/21 11/25/21 11/26/21 05:12 11:20 05:00 WBC RBC 3.30 L Hgb 8.8 L Hct 28.2 L MCV MCH 27 L MCHC RDW 20.7 H Plt Count Seg Neuts % (Manual) Lymphocytes % (Manual) Seg Neutrophils # Man Lymphocytes # (Manual) Monocytes # (Manual) PT INR D-Dimer ABG pH ABG pO2 ABG HCO3 ABG O2 Saturation ABG Base Excess ABG Hemoglobin Oxyhemoglobin Sodium Potassium Chloride Carbon Dioxide BUN 32 H Creatinine Glucose 118 H POC Glucose 118 H Lactic Acid Calcium 8.2 L Phosphorus Magnesium AST ALT Alkaline Phosphatase Lactate Dehydrogenase Troponin T C-Reactive Protein NT-Pro-B Natriuret Pep Total Protein Albumin LDL Cholesterol Direct Vitamin B12 Fluid Glucose Fluid Total Protein Vancomycin Trough Crossmatch 11/26/21 11/26/21 11/26/21 05:00 05:00 05:44 WBC RBC Hgb Hct MCV MCH MCHC RDW Plt Count Seg Neuts % (Manual) Lymphocytes % (Manual) Seg Neutrophils # Man Lymphocytes # (Manual) Monocytes # (Manual) PT 16.9 H INR 1.24 H D-Dimer ABG pH ABG pO2 ABG HCO3 ABG O2 Saturation ABG Base Excess ABG Hemoglobin Oxyhemoglobin Sodium Potassium Chloride Carbon Dioxide BUN 31 H Creatinine Glucose 104 H POC Glucose 110 H Lactic Acid Calcium 7.9 L Phosphorus Magnesium AST ALT Alkaline Phosphatase Lactate Dehydrogenase Troponin T C-Reactive Protein NT-Pro-B Natriuret Pep Total Protein Albumin LDL Cholesterol Direct Vitamin B12 Fluid Glucose Fluid Total Protein Vancomycin Trough Crossmatch 11/26/21 11/27/21 11/27/21 23:55 07:40 07:40 WBC RBC 3.18 L Hgb 8.5 L Hct 27.0 L MCV MCH 27 L MCHC RDW 21.2 H Plt Count Seg Neuts % (Manual) Lymphocytes % (Manual) Seg Neutrophils # Man Lymphocytes # (Manual) Monocytes # (Manual) PT INR D-Dimer ABG pH ABG pO2 ABG HCO3 ABG O2 Saturation ABG Base Excess ABG Hemoglobin Oxyhemoglobin Sodium Potassium Chloride Carbon Dioxide BUN 27 H Creatinine Glucose 112 H POC Glucose 63 L Lactic Acid Calcium 7.6 L Phosphorus Magnesium AST ALT Alkaline Phosphatase Lactate Dehydrogenase Troponin T C-Reactive Protein NT-Pro-B Natriuret Pep Total Protein Albumin LDL Cholesterol Direct Vitamin B12 Fluid Glucose Fluid Total Protein Vancomycin Trough Crossmatch 11/27/21 11/27/21 11/27/21 12:04 13:40 13:40 WBC RBC 3.31 L Hgb 8.7 L Hct 28.0 L MCV MCH 26 L MCHC RDW 20.7 H Plt Count Seg Neuts % (Manual) Lymphocytes % (Manual) Seg Neutrophils # Man Lymphocytes # (Manual) Monocytes # (Manual) PT INR D-Dimer ABG pH ABG pO2 ABG HCO3 ABG O2 Saturation ABG Base Excess ABG Hemoglobin Oxyhemoglobin Sodium 136 L Potassium Chloride Carbon Dioxide BUN 25 H Creatinine Glucose 127 H POC Glucose 109 H Lactic Acid Calcium 7.6 L Phosphorus Magnesium 1.40 L AST ALT Alkaline Phosphatase Lactate Dehydrogenase Troponin T C-Reactive Protein NT-Pro-B Natriuret Pep Total Protein Albumin LDL Cholesterol Direct Vitamin B12 Fluid Glucose Fluid Total Protein Vancomycin Trough Crossmatch 11/27/21 11/27/21 11/28/21 17:44 23:33 12:20 WBC RBC Hgb Hct MCV MCH MCHC RDW Plt Count Seg Neuts % (Manual) Lymphocytes % (Manual) Seg Neutrophils # Man Lymphocytes # (Manual) Monocytes # (Manual) PT INR D-Dimer ABG pH ABG pO2 ABG HCO3 ABG O2 Saturation ABG Base Excess ABG Hemoglobin Oxyhemoglobin Sodium Potassium Chloride Carbon Dioxide BUN Creatinine Glucose POC Glucose 107 H 108 H 114 H Lactic Acid Calcium Phosphorus Magnesium AST ALT Alkaline Phosphatase Lactate Dehydrogenase Troponin T C-Reactive Protein NT-Pro-B Natriuret Pep Total Protein Albumin LDL Cholesterol Direct Vitamin B12 Fluid Glucose Fluid Total Protein Vancomycin Trough Crossmatch 11/29/21 11/29/21 11/29/21 00:09 03:20 03:20 WBC RBC 3.05 L Hgb 8.2 L Hct 25.8 L MCV MCH 27 L MCHC RDW 20.9 H Plt Count Seg Neuts % (Manual) Lymphocytes % (Manual) Seg Neutrophils # Man Lymphocytes # (Manual) Monocytes # (Manual) PT INR D-Dimer ABG pH ABG pO2 ABG HCO3 ABG O2 Saturation ABG Base Excess ABG Hemoglobin Oxyhemoglobin Sodium 133 L Potassium Chloride Carbon Dioxide BUN 24 H Creatinine Glucose 137 H POC Glucose 134 H Lactic Acid Calcium 7.4 L Phosphorus Magnesium AST ALT Alkaline Phosphatase Lactate Dehydrogenase Troponin T C-Reactive Protein NT-Pro-B Natriuret Pep Total Protein Albumin LDL Cholesterol Direct Vitamin B12 Fluid Glucose Fluid Total Protein Vancomycin Trough Crossmatch 11/29/21 11/29/21 11/29/21 05:38 11:39 17:11 WBC RBC Hgb Hct MCV MCH MCHC RDW Plt Count Seg Neuts % (Manual) Lymphocytes % (Manual) Seg Neutrophils # Man Lymphocytes # (Manual) Monocytes # (Manual) PT INR D-Dimer ABG pH ABG pO2 ABG HCO3 ABG O2 Saturation ABG Base Excess ABG Hemoglobin Oxyhemoglobin Sodium Potassium Chloride Carbon Dioxide BUN Creatinine Glucose POC Glucose 117 H 143 H 124 H Lactic Acid Calcium Phosphorus Magnesium AST ALT Alkaline Phosphatase Lactate Dehydrogenase Troponin T C-Reactive Protein NT-Pro-B Natriuret Pep Total Protein Albumin LDL Cholesterol Direct Vitamin B12 Fluid Glucose Fluid Total Protein Vancomycin Trough Crossmatch 11/29/21 11/30/21 11/30/21 20:15 05:40 05:40 WBC 12.6 H RBC 3.41 L Hgb 9.1 L Hct 28.9 L MCV MCH 27 L MCHC RDW 20.4 H Plt Count Seg Neuts % (Manual) Lymphocytes % (Manual) Seg Neutrophils # Man Lymphocytes # (Manual) Monocytes # (Manual) PT INR D-Dimer ABG pH ABG pO2 ABG HCO3 ABG O2 Saturation ABG Base Excess ABG Hemoglobin Oxyhemoglobin Sodium Potassium Chloride Carbon Dioxide BUN 24 H Creatinine Glucose 131 H POC Glucose Lactic Acid Calcium 7.6 L Phosphorus Magnesium AST ALT Alkaline Phosphatase Lactate Dehydrogenase Troponin T 0.045 H C-Reactive Protein NT-Pro-B Natriuret Pep Total Protein Albumin LDL Cholesterol Direct 25 L Vitamin B12 Fluid Glucose Fluid Total Protein Vancomycin Trough Crossmatch 11/30/21 11/30/21 12/01/21 11:29 16:51 05:00 WBC RBC 2.97 L Hgb 8.0 L Hct 25.0 L MCV MCH 27 L MCHC RDW 20.8 H Plt Count Seg Neuts % (Manual) Lymphocytes % (Manual) Seg Neutrophils # Man Lymphocytes # (Manual) Monocytes # (Manual) PT INR D-Dimer ABG pH ABG pO2 ABG HCO3 ABG O2 Saturation ABG Base Excess ABG Hemoglobin Oxyhemoglobin Sodium Potassium Chloride Carbon Dioxide BUN Creatinine Glucose POC Glucose 123 H 114 H Lactic Acid Calcium Phosphorus Magnesium AST ALT Alkaline Phosphatase Lactate Dehydrogenase Troponin T C-Reactive Protein NT-Pro-B Natriuret Pep Total Protein Albumin LDL Cholesterol Direct Vitamin B12 Fluid Glucose Fluid Total Protein Vancomycin Trough Crossmatch 12/01/21 12/01/21 12/01/21 05:00 05:25 11:54 WBC RBC Hgb Hct MCV MCH MCHC RDW Plt Count Seg Neuts % (Manual) Lymphocytes % (Manual) Seg Neutrophils # Man Lymphocytes # (Manual) Monocytes # (Manual) PT INR D-Dimer ABG pH ABG pO2 ABG HCO3 ABG O2 Saturation ABG Base Excess ABG Hemoglobin Oxyhemoglobin Sodium 136 L Potassium Chloride Carbon Dioxide BUN 24 H Creatinine Glucose 117 H POC Glucose 108 H 107 H Lactic Acid Calcium 7.5 L Phosphorus Magnesium 1.60 L AST ALT Alkaline Phosphatase Lactate Dehydrogenase Troponin T C-Reactive Protein NT-Pro-B Natriuret Pep Total Protein Albumin LDL Cholesterol Direct Vitamin B12 Fluid Glucose Fluid Total Protein Vancomycin Trough Crossmatch 12/01/21 12/02/21 12/02/21 17:40 00:07 04:20 WBC RBC 2.92 L Hgb 7.7 L Hct 24.3 L MCV MCH 26 L MCHC RDW 20.5 H Plt Count Seg Neuts % (Manual) Lymphocytes % (Manual) Seg Neutrophils # Man Lymphocytes # (Manual) Monocytes # (Manual) PT INR D-Dimer ABG pH ABG pO2 ABG HCO3 ABG O2 Saturation ABG Base Excess ABG Hemoglobin Oxyhemoglobin Sodium Potassium Chloride Carbon Dioxide BUN Creatinine Glucose POC Glucose 123 H 110 H Lactic Acid Calcium Phosphorus Magnesium AST ALT Alkaline Phosphatase Lactate Dehydrogenase Troponin T C-Reactive Protein NT-Pro-B Natriuret Pep Total Protein Albumin LDL Cholesterol Direct Vitamin B12 Fluid Glucose Fluid Total Protein Vancomycin Trough Crossmatch 12/02/21 12/02/21 12/02/21 04:20 11:17 18:20 WBC RBC Hgb Hct MCV MCH MCHC RDW Plt Count Seg Neuts % (Manual) Lymphocytes % (Manual) Seg Neutrophils # Man Lymphocytes # (Manual) Monocytes # (Manual) PT INR D-Dimer ABG pH ABG pO2 ABG HCO3 ABG O2 Saturation ABG Base Excess ABG Hemoglobin Oxyhemoglobin Sodium 135 L Potassium Chloride Carbon Dioxide BUN 26 H Creatinine Glucose 121 H POC Glucose 117 H 113 H Lactic Acid Calcium 7.4 L Phosphorus Magnesium AST ALT Alkaline Phosphatase Lactate Dehydrogenase Troponin T C-Reactive Protein NT-Pro-B Natriuret Pep Total Protein Albumin LDL Cholesterol Direct Vitamin B12 Fluid Glucose Fluid Total Protein Vancomycin Trough Crossmatch 12/03/21 12/03/21 12/03/21 00:12 04:00 04:00 WBC RBC 2.99 L Hgb 7.8 L Hct 24.6 L MCV MCH 26 L MCHC RDW 20.2 H Plt Count Seg Neuts % (Manual) Lymphocytes % (Manual) Seg Neutrophils # Man Lymphocytes # (Manual) Monocytes # (Manual) PT INR D-Dimer ABG pH ABG pO2 ABG HCO3 ABG O2 Saturation ABG Base Excess ABG Hemoglobin Oxyhemoglobin Sodium 136 L Potassium Chloride Carbon Dioxide BUN 27 H Creatinine Glucose 133 H POC Glucose 121 H Lactic Acid Calcium 7.5 L Phosphorus Magnesium AST ALT Alkaline Phosphatase Lactate Dehydrogenase Troponin T C-Reactive Protein NT-Pro-B Natriuret Pep Total Protein Albumin LDL Cholesterol Direct Vitamin B12 Fluid Glucose Fluid Total Protein Vancomycin Trough Crossmatch 12/03/21 12/03/21 12/03/21 06:30 11:13 16:00 WBC RBC Hgb Hct MCV MCH MCHC RDW Plt Count Seg Neuts % (Manual) Lymphocytes % (Manual) Seg Neutrophils # Man Lymphocytes # (Manual) Monocytes # (Manual) PT INR D-Dimer ABG pH ABG pO2 ABG HCO3 ABG O2 Saturation ABG Base Excess ABG Hemoglobin Oxyhemoglobin Sodium Potassium Chloride Carbon Dioxide BUN Creatinine Glucose POC Glucose 129 H 125 H 125 H Lactic Acid Calcium Phosphorus Magnesium AST ALT Alkaline Phosphatase Lactate Dehydrogenase Troponin T C-Reactive Protein NT-Pro-B Natriuret Pep Total Protein Albumin LDL Cholesterol Direct Vitamin B12 Fluid Glucose Fluid Total Protein Vancomycin Trough Crossmatch 12/03/21 12/04/21 12/04/21 23:32 04:00 05:36 WBC RBC Hgb Hct MCV MCH MCHC RDW Plt Count Seg Neuts % (Manual) Lymphocytes % (Manual) Seg Neutrophils # Man Lymphocytes # (Manual) Monocytes # (Manual) PT INR D-Dimer ABG pH ABG pO2 ABG HCO3 ABG O2 Saturation ABG Base Excess ABG Hemoglobin Oxyhemoglobin Sodium Potassium 3.5 L Chloride Carbon Dioxide BUN 26 H Creatinine 0.5 L Glucose 151 H POC Glucose 133 H 142 H Lactic Acid Calcium 8.3 L Phosphorus Magnesium AST ALT Alkaline Phosphatase Lactate Dehydrogenase Troponin T C-Reactive Protein NT-Pro-B Natriuret Pep Total Protein Albumin LDL Cholesterol Direct Vitamin B12 Fluid Glucose Fluid Total Protein Vancomycin Trough Crossmatch 12/04/21 12/04/21 12/05/21 11:24 15:58 04:36 WBC RBC Hgb Hct MCV MCH MCHC RDW Plt Count Seg Neuts % (Manual) Lymphocytes % (Manual) Seg Neutrophils # Man Lymphocytes # (Manual) Monocytes # (Manual) PT INR D-Dimer ABG pH ABG pO2 ABG HCO3 ABG O2 Saturation ABG Base Excess ABG Hemoglobin Oxyhemoglobin Sodium Potassium Chloride Carbon Dioxide BUN 21 H Creatinine 0.5 L Glucose 119 H POC Glucose 130 H 111 H Lactic Acid Calcium 8.3 L Phosphorus Magnesium AST ALT Alkaline Phosphatase Lactate Dehydrogenase Troponin T C-Reactive Protein NT-Pro-B Natriuret Pep Total Protein Albumin LDL Cholesterol Direct Vitamin B12 Fluid Glucose Fluid Total Protein Vancomycin Trough Crossmatch 12/05/21 12/05/21 12/05/21 05:15 10:40 11:12 WBC RBC 2.98 L Hgb 8.1 L Hct 24.6 L MCV MCH 27 L MCHC RDW 20.8 H Plt Count Seg Neuts % (Manual) Lymphocytes % (Manual) Seg Neutrophils # Man Lymphocytes # (Manual) Monocytes # (Manual) PT INR D-Dimer ABG pH ABG pO2 ABG HCO3 ABG O2 Saturation ABG Base Excess ABG Hemoglobin Oxyhemoglobin Sodium Potassium Chloride Carbon Dioxide BUN Creatinine Glucose POC Glucose 107 H 110 H Lactic Acid Calcium Phosphorus Magnesium AST ALT Alkaline Phosphatase Lactate Dehydrogenase Troponin T C-Reactive Protein NT-Pro-B Natriuret Pep Total Protein Albumin LDL Cholesterol Direct Vitamin B12 Fluid Glucose Fluid Total Protein Vancomycin Trough Crossmatch 12/05/21 12/06/21 12/06/21 23:39 04:25 04:25 WBC RBC 2.95 L Hgb 7.9 L Hct 24.7 L MCV MCH 27 L MCHC RDW 20.9 H Plt Count Seg Neuts % (Manual) Lymphocytes % (Manual) Seg Neutrophils # Man Lymphocytes # (Manual) Monocytes # (Manual) PT INR D-Dimer ABG pH ABG pO2 ABG HCO3 ABG O2 Saturation ABG Base Excess ABG Hemoglobin Oxyhemoglobin Sodium Potassium Chloride Carbon Dioxide BUN 22 H Creatinine 0.5 L Glucose 136 H POC Glucose 118 H Lactic Acid Calcium 8.2 L Phosphorus Magnesium AST ALT Alkaline Phosphatase Lactate Dehydrogenase Troponin T C-Reactive Protein NT-Pro-B Natriuret Pep Total Protein Albumin LDL Cholesterol Direct Vitamin B12 Fluid Glucose Fluid Total Protein Vancomycin Trough Crossmatch 12/06/21 12/06/21 12/07/21 05:28 11:27 04:00 WBC RBC Hgb 7.2 L Hct 21.8 L MCV MCH MCHC RDW Plt Count Seg Neuts % (Manual) Lymphocytes % (Manual) Seg Neutrophils # Man Lymphocytes # (Manual) Monocytes # (Manual) PT INR D-Dimer ABG pH ABG pO2 ABG HCO3 ABG O2 Saturation ABG Base Excess ABG Hemoglobin Oxyhemoglobin Sodium Potassium Chloride Carbon Dioxide BUN Creatinine Glucose POC Glucose 142 H 126 H Lactic Acid Calcium Phosphorus Magnesium AST ALT Alkaline Phosphatase Lactate Dehydrogenase Troponin T C-Reactive Protein NT-Pro-B Natriuret Pep Total Protein Albumin LDL Cholesterol Direct Vitamin B12 Fluid Glucose Fluid Total Protein Vancomycin Trough Crossmatch 12/07/21 12/07/21 12/07/21 04:00 05:30 11:12 WBC RBC Hgb Hct MCV MCH MCHC RDW Plt Count Seg Neuts % (Manual) Lymphocytes % (Manual) Seg Neutrophils # Man Lymphocytes # (Manual) Monocytes # (Manual) PT INR D-Dimer ABG pH ABG pO2 ABG HCO3 ABG O2 Saturation ABG Base Excess ABG Hemoglobin Oxyhemoglobin Sodium Potassium Chloride Carbon Dioxide BUN 22 H Creatinine Glucose 119 H POC Glucose 121 H 124 H Lactic Acid Calcium 8.0 L Phosphorus Magnesium AST ALT Alkaline Phosphatase Lactate Dehydrogenase Troponin T C-Reactive Protein NT-Pro-B Natriuret Pep Total Protein Albumin LDL Cholesterol Direct Vitamin B12 Fluid Glucose Fluid Total Protein Vancomycin Trough Crossmatch 12/08/21 12/08/21 12/08/21 04:00 04:00 05:39 WBC RBC 2.81 L Hgb 7.7 L Hct 23.5 L MCV MCH MCHC RDW 21.2 H Plt Count Seg Neuts % (Manual) Lymphocytes % (Manual) Seg Neutrophils # Man Lymphocytes # (Manual) Monocytes # (Manual) PT INR D-Dimer ABG pH ABG pO2 ABG HCO3 ABG O2 Saturation ABG Base Excess ABG Hemoglobin Oxyhemoglobin Sodium 135 L Potassium Chloride Carbon Dioxide BUN 23 H Creatinine Glucose 109 H POC Glucose 112 H Lactic Acid Calcium Phosphorus Magnesium AST ALT Alkaline Phosphatase Lactate Dehydrogenase Troponin T C-Reactive Protein NT-Pro-B Natriuret Pep Total Protein Albumin LDL Cholesterol Direct Vitamin B12 Fluid Glucose Fluid Total Protein Vancomycin Trough Crossmatch 12/08/21 12/09/21 12/09/21 11:03 04:20 04:20 WBC RBC 2.67 L Hgb 7.6 L Hct 22.1 L MCV MCH MCHC RDW 20.8 H Plt Count Seg Neuts % (Manual) Lymphocytes % (Manual) Seg Neutrophils # Man Lymphocytes # (Manual) Monocytes # (Manual) PT INR D-Dimer ABG pH ABG pO2 ABG HCO3 ABG O2 Saturation ABG Base Excess ABG Hemoglobin Oxyhemoglobin Sodium 135 L Potassium Chloride 97.8 L Carbon Dioxide BUN 26 H Creatinine Glucose 119 H POC Glucose 108 H Lactic Acid Calcium 7.7 L Phosphorus Magnesium AST ALT Alkaline Phosphatase Lactate Dehydrogenase Troponin T C-Reactive Protein NT-Pro-B Natriuret Pep Total Protein Albumin LDL Cholesterol Direct Vitamin B12 Fluid Glucose Fluid Total Protein Vancomycin Trough Crossmatch 12/09/21 12/10/21 12/10/21 11:26 04:33 11:12 WBC RBC Hgb Hct MCV MCH MCHC RDW Plt Count Seg Neuts % (Manual) Lymphocytes % (Manual) Seg Neutrophils # Man Lymphocytes # (Manual) Monocytes # (Manual) PT INR D-Dimer ABG pH ABG pO2 ABG HCO3 ABG O2 Saturation ABG Base Excess ABG Hemoglobin Oxyhemoglobin Sodium 136 L Potassium Chloride Carbon Dioxide BUN 27 H Creatinine Glucose 117 H POC Glucose 110 H 117 H Lactic Acid Calcium 8.2 L Phosphorus Magnesium AST ALT Alkaline Phosphatase Lactate Dehydrogenase Troponin T C-Reactive Protein NT-Pro-B Natriuret Pep Total Protein Albumin LDL Cholesterol Direct Vitamin B12 Fluid Glucose Fluid Total Protein Vancomycin Trough Crossmatch 12/10/21 12/10/21 12/11/21 16:02 23:31 04:35 WBC RBC 2.57 L Hgb 7.0 L Hct 21.4 L MCV MCH 27 L MCHC RDW 21.1 H Plt Count Seg Neuts % (Manual) Lymphocytes % (Manual) Seg Neutrophils # Man Lymphocytes # (Manual) Monocytes # (Manual) PT INR D-Dimer ABG pH ABG pO2 ABG HCO3 ABG O2 Saturation ABG Base Excess ABG Hemoglobin Oxyhemoglobin Sodium Potassium Chloride Carbon Dioxide BUN Creatinine Glucose POC Glucose 137 H 111 H Lactic Acid Calcium Phosphorus Magnesium AST ALT Alkaline Phosphatase Lactate Dehydrogenase Troponin T C-Reactive Protein NT-Pro-B Natriuret Pep Total Protein Albumin LDL Cholesterol Direct Vitamin B12 Fluid Glucose Fluid Total Protein Vancomycin Trough Crossmatch 12/11/21 12/11/21 12/11/21 04:35 12:46 16:07 WBC RBC Hgb Hct MCV MCH MCHC RDW Plt Count Seg Neuts % (Manual) Lymphocytes % (Manual) Seg Neutrophils # Man Lymphocytes # (Manual) Monocytes # (Manual) PT INR D-Dimer ABG pH ABG pO2 ABG HCO3 ABG O2 Saturation ABG Base Excess ABG Hemoglobin Oxyhemoglobin Sodium 136 L Potassium Chloride Carbon Dioxide BUN 27 H Creatinine Glucose 112 H POC Glucose 115 H 111 H Lactic Acid Calcium 7.6 L Phosphorus Magnesium AST ALT Alkaline Phosphatase Lactate Dehydrogenase Troponin T C-Reactive Protein NT-Pro-B Natriuret Pep Total Protein Albumin LDL Cholesterol Direct Vitamin B12 Fluid Glucose Fluid Total Protein Vancomycin Trough Crossmatch 12/11/21 12/12/21 12/12/21 23:42 04:30 04:30 WBC RBC 2.60 L Hgb 7.1 L Hct 21.5 L MCV MCH 27 L MCHC RDW 20.3 H Plt Count Seg Neuts % (Manual) Lymphocytes % (Manual) Seg Neutrophils # Man Lymphocytes # (Manual) Monocytes # (Manual) PT INR D-Dimer ABG pH ABG pO2 ABG HCO3 ABG O2 Saturation ABG Base Excess ABG Hemoglobin Oxyhemoglobin Sodium 135 L Potassium Chloride 97.9 L Carbon Dioxide BUN 26 H Creatinine 0.5 L Glucose 138 H POC Glucose 115 H Lactic Acid Calcium 8.2 L Phosphorus Magnesium AST ALT Alkaline Phosphatase Lactate Dehydrogenase Troponin T C-Reactive Protein NT-Pro-B Natriuret Pep Total Protein Albumin LDL Cholesterol Direct Vitamin B12 Fluid Glucose Fluid Total Protein Vancomycin Trough Crossmatch 12/12/21 12/12/21 12/12/21 04:30 05:10 11:51 WBC RBC Hgb Hct MCV MCH MCHC RDW Plt Count Seg Neuts % (Manual) Lymphocytes % (Manual) Seg Neutrophils # Man Lymphocytes # (Manual) Monocytes # (Manual) PT INR D-Dimer ABG pH ABG pO2 ABG HCO3 ABG O2 Saturation ABG Base Excess ABG Hemoglobin Oxyhemoglobin Sodium Potassium Chloride Carbon Dioxide BUN Creatinine Glucose POC Glucose 119 H 119 H Lactic Acid Calcium Phosphorus Magnesium AST ALT Alkaline Phosphatase Lactate Dehydrogenase Troponin T C-Reactive Protein NT-Pro-B Natriuret Pep Total Protein Albumin LDL Cholesterol Direct Vitamin B12 Fluid Glucose Fluid Total Protein Vancomycin Trough Crossmatch See Detail 12/13/21 12/13/21 12/13/21 00:52 04:00 04:00 WBC RBC 2.73 L Hgb 7.4 L Hct 22.8 L MCV MCH 27 L MCHC RDW 20.5 H Plt Count Seg Neuts % (Manual) Lymphocytes % (Manual) Seg Neutrophils # Man Lymphocytes # (Manual) Monocytes # (Manual) PT INR D-Dimer ABG pH ABG pO2 ABG HCO3 ABG O2 Saturation ABG Base Excess ABG Hemoglobin Oxyhemoglobin Sodium 134 L Potassium Chloride 96.7 L Carbon Dioxide BUN 23 H Creatinine 0.5 L Glucose 131 H POC Glucose 131 H Lactic Acid Calcium 8.1 L Phosphorus Magnesium AST ALT Alkaline Phosphatase Lactate Dehydrogenase Troponin T C-Reactive Protein NT-Pro-B Natriuret Pep Total Protein Albumin LDL Cholesterol Direct Vitamin B12 Fluid Glucose Fluid Total Protein Vancomycin Trough Crossmatch 12/13/21 12/13/21 12/13/21 05:23 12:11 17:18 WBC RBC Hgb Hct MCV MCH MCHC RDW Plt Count Seg Neuts % (Manual) Lymphocytes % (Manual) Seg Neutrophils # Man Lymphocytes # (Manual) Monocytes # (Manual) PT INR D-Dimer ABG pH ABG pO2 ABG HCO3 ABG O2 Saturation ABG Base Excess ABG Hemoglobin Oxyhemoglobin Sodium Potassium Chloride Carbon Dioxide BUN Creatinine Glucose POC Glucose 121 H 143 H 148 H Lactic Acid Calcium Phosphorus Magnesium AST ALT Alkaline Phosphatase Lactate Dehydrogenase Troponin T C-Reactive Protein NT-Pro-B Natriuret Pep Total Protein Albumin LDL Cholesterol Direct Vitamin B12 Fluid Glucose Fluid Total Protein Vancomycin Trough Crossmatch 12/14/21 12/14/21 12/14/21 00:54 04:20 04:20 WBC RBC 2.39 L Hgb 6.5 L Hct 20.3 L MCV MCH 27 L MCHC RDW 20.3 H Plt Count Seg Neuts % (Manual) Lymphocytes % (Manual) Seg Neutrophils # Man Lymphocytes # (Manual) Monocytes # (Manual) PT INR D-Dimer ABG pH ABG pO2 ABG HCO3 ABG O2 Saturation ABG Base Excess ABG Hemoglobin Oxyhemoglobin Sodium 130 L Potassium Chloride 93.5 L Carbon Dioxide BUN 25 H Creatinine Glucose 123 H POC Glucose 123 H Lactic Acid Calcium 8.0 L Phosphorus Magnesium AST ALT Alkaline Phosphatase Lactate Dehydrogenase Troponin T C-Reactive Protein NT-Pro-B Natriuret Pep Total Protein Albumin LDL Cholesterol Direct Vitamin B12 Fluid Glucose Fluid Total Protein Vancomycin Trough Crossmatch 12/14/21 12/14/21 12/14/21 05:06 08:17 10:30 WBC RBC Hgb Hct MCV MCH MCHC RDW Plt Count Seg Neuts % (Manual) Lymphocytes % (Manual) Seg Neutrophils # Man Lymphocytes # (Manual) Monocytes # (Manual) PT INR D-Dimer ABG pH ABG pO2 ABG HCO3 ABG O2 Saturation ABG Base Excess ABG Hemoglobin Oxyhemoglobin Sodium Potassium Chloride Carbon Dioxide BUN Creatinine Glucose POC Glucose 131 H 119 H Lactic Acid Calcium Phosphorus Magnesium AST ALT Alkaline Phosphatase Lactate Dehydrogenase Troponin T C-Reactive Protein NT-Pro-B Natriuret Pep Total Protein Albumin LDL Cholesterol Direct Vitamin B12 Fluid Glucose Fluid Total Protein Vancomycin Trough Crossmatch See Detail 12/14/21 12/14/21 12/14/21 12:15 16:37 23:27 WBC RBC Hgb Hct MCV MCH MCHC RDW Plt Count Seg Neuts % (Manual) Lymphocytes % (Manual) Seg Neutrophils # Man Lymphocytes # (Manual) Monocytes # (Manual) PT INR D-Dimer ABG pH ABG pO2 ABG HCO3 ABG O2 Saturation ABG Base Excess ABG Hemoglobin Oxyhemoglobin Sodium Potassium Chloride Carbon Dioxide BUN Creatinine Glucose POC Glucose 147 H 141 H 130 H Lactic Acid Calcium Phosphorus Magnesium AST ALT Alkaline Phosphatase Lactate Dehydrogenase Troponin T C-Reactive Protein NT-Pro-B Natriuret Pep Total Protein Albumin LDL Cholesterol Direct Vitamin B12 Fluid Glucose Fluid Total Protein Vancomycin Trough Crossmatch 12/15/21 12/15/21 12/15/21 05:00 07:00 07:00 WBC 12.3 H RBC 3.27 L Hgb 8.8 L Hct 27.5 L D MCV MCH 27 L MCHC RDW 19.0 H Plt Count Seg Neuts % (Manual) Lymphocytes % (Manual) Seg Neutrophils # Man Lymphocytes # (Manual) Monocytes # (Manual) PT INR D-Dimer ABG pH ABG pO2 ABG HCO3 ABG O2 Saturation ABG Base Excess ABG Hemoglobin Oxyhemoglobin Sodium 134 L Potassium Chloride 95.7 L Carbon Dioxide BUN 28 H Creatinine Glucose 129 H POC Glucose 129 H Lactic Acid Calcium 8.2 L Phosphorus Magnesium AST ALT Alkaline Phosphatase Lactate Dehydrogenase Troponin T C-Reactive Protein NT-Pro-B Natriuret Pep Total Protein Albumin LDL Cholesterol Direct Vitamin B12 Fluid Glucose Fluid Total Protein Vancomycin Trough Crossmatch 12/15/21 12/15/21 12/15/21 11:18 16:00 23:39 WBC RBC Hgb Hct MCV MCH MCHC RDW Plt Count Seg Neuts % (Manual) Lymphocytes % (Manual) Seg Neutrophils # Man Lymphocytes # (Manual) Monocytes # (Manual) PT INR D-Dimer ABG pH ABG pO2 ABG HCO3 ABG O2 Saturation ABG Base Excess ABG Hemoglobin Oxyhemoglobin Sodium Potassium Chloride Carbon Dioxide BUN Creatinine Glucose POC Glucose 139 H 137 H 146 H Lactic Acid Calcium Phosphorus Magnesium AST ALT Alkaline Phosphatase Lactate Dehydrogenase Troponin T C-Reactive Protein NT-Pro-B Natriuret Pep Total Protein Albumin LDL Cholesterol Direct Vitamin B12 Fluid Glucose Fluid Total Protein Vancomycin Trough Crossmatch 12/16/21 12/16/21 12/16/21 05:24 10:21 10:21 WBC 15.3 H RBC 3.24 L Hgb 8.9 L Hct 27.7 L MCV MCH MCHC RDW 19.0 H Plt Count Seg Neuts % (Manual) Lymphocytes % (Manual) Seg Neutrophils # Man Lymphocytes # (Manual) Monocytes # (Manual) PT INR D-Dimer ABG pH ABG pO2 ABG HCO3 ABG O2 Saturation ABG Base Excess ABG Hemoglobin Oxyhemoglobin Sodium 131 L Potassium 3.5 L Chloride 92.7 L Carbon Dioxide BUN 36 H Creatinine Glucose 160 H POC Glucose 121 H Lactic Acid Calcium Phosphorus Magnesium 1.60 L AST ALT Alkaline Phosphatase Lactate Dehydrogenase Troponin T C-Reactive Protein NT-Pro-B Natriuret Pep Total Protein Albumin LDL Cholesterol Direct Vitamin B12 Fluid Glucose Fluid Total Protein Vancomycin Trough Crossmatch 12/16/21 12/16/21 12/16/21 11:21 18:28 20:52 WBC RBC Hgb Hct MCV MCH MCHC RDW Plt Count Seg Neuts % (Manual) Lymphocytes % (Manual) Seg Neutrophils # Man Lymphocytes # (Manual) Monocytes # (Manual) PT INR D-Dimer ABG pH 7.479 H ABG pO2 79.3 L ABG HCO3 27.3 H ABG O2 Saturation ABG Base Excess 3.6 H ABG Hemoglobin 9.1 L Oxyhemoglobin 94.9 L Sodium Potassium Chloride Carbon Dioxide BUN Creatinine Glucose POC Glucose 153 H 132 H Lactic Acid Calcium Phosphorus Magnesium AST ALT Alkaline Phosphatase Lactate Dehydrogenase Troponin T C-Reactive Protein NT-Pro-B Natriuret Pep Total Protein Albumin LDL Cholesterol Direct Vitamin B12 Fluid Glucose Fluid Total Protein Vancomycin Trough Crossmatch 12/16/21 12/17/21 12/17/21 23:30 04:25 04:25 WBC 12.3 H RBC 2.16 L Hgb 6.0 L Hct 18.1 L* D MCV MCH MCHC RDW 19.4 H Plt Count Seg Neuts % (Manual) Lymphocytes % (Manual) Seg Neutrophils # Man Lymphocytes # (Manual) Monocytes # (Manual) PT INR D-Dimer ABG pH ABG pO2 ABG HCO3 ABG O2 Saturation ABG Base Excess ABG Hemoglobin Oxyhemoglobin Sodium 132 L Potassium 3.2 L Chloride 112.0 H Carbon Dioxide BUN 32 H Creatinine Glucose 122 H POC Glucose 137 H Lactic Acid Calcium 6.8 L D Phosphorus Magnesium AST ALT Alkaline Phosphatase Lactate Dehydrogenase Troponin T C-Reactive Protein NT-Pro-B Natriuret Pep Total Protein Albumin LDL Cholesterol Direct Vitamin B12 Fluid Glucose Fluid Total Protein Vancomycin Trough Crossmatch 12/17/21 12/17/21 12/17/21 05:30 11:49 14:45 WBC RBC Hgb 9.7 L D Hct MCV MCH MCHC RDW Plt Count Seg Neuts % (Manual) Lymphocytes % (Manual) Seg Neutrophils # Man Lymphocytes # (Manual) Monocytes # (Manual) PT INR D-Dimer ABG pH ABG pO2 ABG HCO3 ABG O2 Saturation ABG Base Excess ABG Hemoglobin Oxyhemoglobin Sodium Potassium Chloride Carbon Dioxide BUN Creatinine Glucose POC Glucose 137 H 143 H Lactic Acid Calcium Phosphorus Magnesium AST ALT Alkaline Phosphatase Lactate Dehydrogenase Troponin T C-Reactive Protein NT-Pro-B Natriuret Pep Total Protein Albumin LDL Cholesterol Direct Vitamin B12 Fluid Glucose Fluid Total Protein Vancomycin Trough Crossmatch 12/17/21 12/18/21 12/18/21 17:01 05:04 05:04 WBC 13.8 H RBC 3.44 L Hgb 9.9 L Hct 28.8 L MCV MCH MCHC RDW 18.1 H Plt Count Seg Neuts % (Manual) Lymphocytes % (Manual) Seg Neutrophils # Man Lymphocytes # (Manual) Monocytes # (Manual) PT INR D-Dimer ABG pH ABG pO2 ABG HCO3 ABG O2 Saturation ABG Base Excess ABG Hemoglobin Oxyhemoglobin Sodium 132 L Potassium Chloride 97.4 L Carbon Dioxide BUN 38 H Creatinine Glucose 134 H POC Glucose 132 H Lactic Acid Calcium Phosphorus Magnesium AST ALT Alkaline Phosphatase Lactate Dehydrogenase Troponin T C-Reactive Protein NT-Pro-B Natriuret Pep Total Protein Albumin LDL Cholesterol Direct Vitamin B12 Fluid Glucose Fluid Total Protein Vancomycin Trough Crossmatch 12/18/21 12/18/21 12/18/21 05:28 10:57 16:27 WBC RBC Hgb Hct MCV MCH MCHC RDW Plt Count Seg Neuts % (Manual) Lymphocytes % (Manual) Seg Neutrophils # Man Lymphocytes # (Manual) Monocytes # (Manual) PT INR D-Dimer ABG pH ABG pO2 ABG HCO3 ABG O2 Saturation ABG Base Excess ABG Hemoglobin Oxyhemoglobin Sodium Potassium Chloride Carbon Dioxide BUN Creatinine Glucose POC Glucose 118 H 132 H 130 H Lactic Acid Calcium Phosphorus Magnesium AST ALT Alkaline Phosphatase Lactate Dehydrogenase Troponin T C-Reactive Protein NT-Pro-B Natriuret Pep Total Protein Albumin LDL Cholesterol Direct Vitamin B12 Fluid Glucose Fluid Total Protein Vancomycin Trough Crossmatch 12/19/21 12/19/21 12/19/21 00:02 04:41 04:41 WBC 16.0 H RBC 3.45 L Hgb 9.7 L Hct 29.1 L MCV MCH MCHC RDW 17.8 H Plt Count Seg Neuts % (Manual) Lymphocytes % (Manual) Seg Neutrophils # Man Lymphocytes # (Manual) Monocytes # (Manual) PT INR D-Dimer ABG pH ABG pO2 ABG HCO3 ABG O2 Saturation ABG Base Excess ABG Hemoglobin Oxyhemoglobin Sodium 133 L Potassium Chloride 97.9 L Carbon Dioxide BUN 36 H Creatinine 0.5 L Glucose 126 H POC Glucose 127 H Lactic Acid Calcium 8.3 L Phosphorus Magnesium AST ALT Alkaline Phosphatase Lactate Dehydrogenase Troponin T C-Reactive Protein NT-Pro-B Natriuret Pep Total Protein Albumin LDL Cholesterol Direct Vitamin B12 Fluid Glucose Fluid Total Protein Vancomycin Trough Crossmatch 12/19/21 12/19/21 12/19/21 05:26 12:20 16:43 WBC RBC Hgb Hct MCV MCH MCHC RDW Plt Count Seg Neuts % (Manual) Lymphocytes % (Manual) Seg Neutrophils # Man Lymphocytes # (Manual) Monocytes # (Manual) PT INR D-Dimer ABG pH ABG pO2 ABG HCO3 ABG O2 Saturation ABG Base Excess ABG Hemoglobin Oxyhemoglobin Sodium Potassium Chloride Carbon Dioxide BUN Creatinine Glucose POC Glucose 119 H 145 H 126 H Lactic Acid Calcium Phosphorus Magnesium AST ALT Alkaline Phosphatase Lactate Dehydrogenase Troponin T C-Reactive Protein NT-Pro-B Natriuret Pep Total Protein Albumin LDL Cholesterol Direct Vitamin B12 Fluid Glucose Fluid Total Protein Vancomycin Trough Crossmatch 12/19/21 12/20/21 12/20/21 23:30 04:54 04:54 WBC 12.3 H RBC 3.54 L Hgb 10.0 L Hct 29.5 L MCV MCH MCHC RDW 17.8 H Plt Count Seg Neuts % (Manual) 88.0 H Lymphocytes % (Manual) 6.0 L Seg Neutrophils # Man 10.8 H Lymphocytes # (Manual) 0.7 L Monocytes # (Manual) PT INR D-Dimer ABG pH ABG pO2 ABG HCO3 ABG O2 Saturation ABG Base Excess ABG Hemoglobin Oxyhemoglobin Sodium 131 L Potassium Chloride 96.2 L Carbon Dioxide BUN 36 H Creatinine 0.5 L Glucose 130 H POC Glucose 117 H Lactic Acid Calcium Phosphorus Magnesium AST ALT Alkaline Phosphatase Lactate Dehydrogenase Troponin T C-Reactive Protein NT-Pro-B Natriuret Pep Total Protein Albumin LDL Cholesterol Direct Vitamin B12 Fluid Glucose Fluid Total Protein Vancomycin Trough Crossmatch 12/20/21 12/20/21 12/20/21 05:20 11:51 17:30 WBC RBC Hgb Hct MCV MCH MCHC RDW Plt Count Seg Neuts % (Manual) Lymphocytes % (Manual) Seg Neutrophils # Man Lymphocytes # (Manual) Monocytes # (Manual) PT INR D-Dimer ABG pH ABG pO2 ABG HCO3 ABG O2 Saturation ABG Base Excess ABG Hemoglobin Oxyhemoglobin Sodium Potassium Chloride Carbon Dioxide BUN Creatinine Glucose POC Glucose 126 H 119 H 127 H Lactic Acid Calcium Phosphorus Magnesium AST ALT Alkaline Phosphatase Lactate Dehydrogenase Troponin T C-Reactive Protein NT-Pro-B Natriuret Pep Total Protein Albumin LDL Cholesterol Direct Vitamin B12 Fluid Glucose Fluid Total Protein Vancomycin Trough Crossmatch 12/21/21 12/21/21 12/21/21 00:45 04:21 04:21 WBC RBC 3.47 L Hgb 9.4 L Hct 29.2 L MCV MCH 27 L MCHC RDW 18.1 H Plt Count Seg Neuts % (Manual) Lymphocytes % (Manual) Seg Neutrophils # Man Lymphocytes # (Manual) Monocytes # (Manual) PT INR D-Dimer ABG pH ABG pO2 ABG HCO3 ABG O2 Saturation ABG Base Excess ABG Hemoglobin Oxyhemoglobin Sodium 134 L Potassium Chloride Carbon Dioxide BUN 35 H Creatinine 0.5 L Glucose 122 H POC Glucose 125 H Lactic Acid Calcium 8.2 L Phosphorus Magnesium AST ALT Alkaline Phosphatase Lactate Dehydrogenase Troponin T C-Reactive Protein NT-Pro-B Natriuret Pep Total Protein Albumin LDL Cholesterol Direct Vitamin B12 Fluid Glucose Fluid Total Protein Vancomycin Trough Crossmatch 12/21/21 12/21/21 12/21/21 05:38 11:29 16:16 WBC RBC Hgb Hct MCV MCH MCHC RDW Plt Count Seg Neuts % (Manual) Lymphocytes % (Manual) Seg Neutrophils # Man Lymphocytes # (Manual) Monocytes # (Manual) PT INR D-Dimer ABG pH ABG pO2 ABG HCO3 ABG O2 Saturation ABG Base Excess ABG Hemoglobin Oxyhemoglobin Sodium Potassium Chloride Carbon Dioxide BUN Creatinine Glucose POC Glucose 127 H 121 H 113 H Lactic Acid Calcium Phosphorus Magnesium AST ALT Alkaline Phosphatase Lactate Dehydrogenase Troponin T C-Reactive Protein NT-Pro-B Natriuret Pep Total Protein Albumin LDL Cholesterol Direct Vitamin B12 Fluid Glucose Fluid Total Protein Vancomycin Trough Crossmatch 12/22/21 12/22/21 12/23/21 04:58 04:58 06:40 WBC 11.5 H RBC 3.43 L Hgb 9.8 L Hct 28.7 L MCV MCH MCHC RDW 18.5 H 17.9 H Plt Count Seg Neuts % (Manual) Lymphocytes % (Manual) Seg Neutrophils # Man Lymphocytes # (Manual) Monocytes # (Manual) PT INR D-Dimer ABG pH ABG pO2 ABG HCO3 ABG O2 Saturation ABG Base Excess ABG Hemoglobin Oxyhemoglobin Sodium 130 L Potassium Chloride 97.8 L Carbon Dioxide BUN 31 H Creatinine 0.5 L Glucose 122 H POC Glucose Lactic Acid Calcium 7.9 L Phosphorus Magnesium AST ALT Alkaline Phosphatase Lactate Dehydrogenase Troponin T C-Reactive Protein NT-Pro-B Natriuret Pep Total Protein Albumin LDL Cholesterol Direct Vitamin B12 Fluid Glucose Fluid Total Protein Vancomycin Trough Crossmatch 12/23/21 12/23/21 12/24/21 06:40 23:25 04:24 WBC 11.7 H RBC Hgb 9.8 L Hct MCV MCH 26 L MCHC RDW 18.1 H Plt Count Seg Neuts % (Manual) Lymphocytes % (Manual) Seg Neutrophils # Man Lymphocytes # (Manual) Monocytes # (Manual) PT INR D-Dimer ABG pH ABG pO2 ABG HCO3 ABG O2 Saturation ABG Base Excess ABG Hemoglobin Oxyhemoglobin Sodium 136 L Potassium Chloride Carbon Dioxide BUN 27 H Creatinine 0.4 L Glucose 107 H POC Glucose 110 H Lactic Acid Calcium 8.1 L Phosphorus Magnesium AST ALT Alkaline Phosphatase Lactate Dehydrogenase Troponin T C-Reactive Protein NT-Pro-B Natriuret Pep Total Protein Albumin LDL Cholesterol Direct Vitamin B12 Fluid Glucose Fluid Total Protein Vancomycin Trough Crossmatch 12/24/21 12/24/21 12/24/21 04:24 11:08 15:45 WBC RBC Hgb Hct MCV MCH MCHC RDW Plt Count Seg Neuts % (Manual) Lymphocytes % (Manual) Seg Neutrophils # Man Lymphocytes # (Manual) Monocytes # (Manual) PT INR D-Dimer ABG pH ABG pO2 ABG HCO3 ABG O2 Saturation ABG Base Excess ABG Hemoglobin Oxyhemoglobin Sodium 132 L Potassium Chloride Carbon Dioxide BUN 27 H Creatinine 0.3 L Glucose 108 H POC Glucose 116 H 107 H Lactic Acid Calcium Phosphorus Magnesium AST ALT Alkaline Phosphatase Lactate Dehydrogenase Troponin T C-Reactive Protein NT-Pro-B Natriuret Pep Total Protein Albumin LDL Cholesterol Direct Vitamin B12 Fluid Glucose Fluid Total Protein Vancomycin Trough Crossmatch 12/24/21 12/25/21 12/25/21 23:43 05:29 11:48 WBC RBC Hgb Hct MCV MCH MCHC RDW Plt Count Seg Neuts % (Manual) Lymphocytes % (Manual) Seg Neutrophils # Man Lymphocytes # (Manual) Monocytes # (Manual) PT INR D-Dimer ABG pH ABG pO2 ABG HCO3 ABG O2 Saturation ABG Base Excess ABG Hemoglobin Oxyhemoglobin Sodium Potassium Chloride Carbon Dioxide BUN Creatinine Glucose POC Glucose 123 H 107 H 119 H Lactic Acid Calcium Phosphorus Magnesium AST ALT Alkaline Phosphatase Lactate Dehydrogenase Troponin T C-Reactive Protein NT-Pro-B Natriuret Pep Total Protein Albumin LDL Cholesterol Direct Vitamin B12 Fluid Glucose Fluid Total Protein Vancomycin Trough Crossmatch 12/26/21 12/26/21 12/26/21 00:06 05:56 07:51 WBC 11.4 H RBC 3.40 L Hgb 9.3 L Hct 28.3 L MCV MCH 27 L MCHC RDW 18.2 H Plt Count Seg Neuts % (Manual) Lymphocytes % (Manual) Seg Neutrophils # Man Lymphocytes # (Manual) Monocytes # (Manual) PT INR D-Dimer ABG pH ABG pO2 ABG HCO3 ABG O2 Saturation ABG Base Excess ABG Hemoglobin Oxyhemoglobin Sodium Potassium Chloride Carbon Dioxide BUN Creatinine Glucose POC Glucose 133 H 107 H Lactic Acid Calcium Phosphorus Magnesium AST ALT Alkaline Phosphatase Lactate Dehydrogenase Troponin T C-Reactive Protein NT-Pro-B Natriuret Pep Total Protein Albumin LDL Cholesterol Direct Vitamin B12 Fluid Glucose Fluid Total Protein Vancomycin Trough Crossmatch 12/26/21 12/26/21 12/26/21 07:51 11:43 17:06 WBC RBC Hgb Hct MCV MCH MCHC RDW Plt Count Seg Neuts % (Manual) Lymphocytes % (Manual) Seg Neutrophils # Man Lymphocytes # (Manual) Monocytes # (Manual) PT INR D-Dimer ABG pH ABG pO2 ABG HCO3 ABG O2 Saturation ABG Base Excess ABG Hemoglobin Oxyhemoglobin Sodium 136 L Potassium Chloride Carbon Dioxide BUN 25 H Creatinine 0.3 L Glucose 131 H POC Glucose 119 H 128 H Lactic Acid Calcium Phosphorus Magnesium AST ALT Alkaline Phosphatase Lactate Dehydrogenase Troponin T C-Reactive Protein NT-Pro-B Natriuret Pep Total Protein Albumin LDL Cholesterol Direct Vitamin B12 Fluid Glucose Fluid Total Protein Vancomycin Trough Crossmatch 12/28/21 12/28/21 12/29/21 09:05 09:05 04:40 WBC RBC 3.19 L Hgb 8.9 L Hct 26.4 L MCV MCH 27 L MCHC RDW 18.4 H 17.9 H Plt Count Seg Neuts % (Manual) Lymphocytes % (Manual) Seg Neutrophils # Man Lymphocytes # (Manual) Monocytes # (Manual) PT INR D-Dimer ABG pH ABG pO2 ABG HCO3 ABG O2 Saturation ABG Base Excess ABG Hemoglobin Oxyhemoglobin Sodium 135 L Potassium Chloride 97.8 L Carbon Dioxide BUN 18 H Creatinine 0.3 L Glucose POC Glucose Lactic Acid Calcium Phosphorus Magnesium AST ALT Alkaline Phosphatase Lactate Dehydrogenase Troponin T C-Reactive Protein NT-Pro-B Natriuret Pep Total Protein Albumin LDL Cholesterol Direct Vitamin B12 Fluid Glucose Fluid Total Protein Vancomycin Trough Crossmatch 12/29/21 12/29/21 12/30/21 04:40 12:47 04:05 WBC RBC 3.29 L Hgb 8.7 L Hct 27.6 L MCV MCH 27 L MCHC RDW 17.6 H Plt Count Seg Neuts % (Manual) Lymphocytes % (Manual) Seg Neutrophils # Man Lymphocytes # (Manual) Monocytes # (Manual) PT INR D-Dimer ABG pH ABG pO2 ABG HCO3 ABG O2 Saturation ABG Base Excess ABG Hemoglobin Oxyhemoglobin Sodium 136 L Potassium Chloride Carbon Dioxide BUN Creatinine 0.3 L Glucose POC Glucose 67 L Lactic Acid Calcium 8.3 L Phosphorus Magnesium AST ALT Alkaline Phosphatase Lactate Dehydrogenase Troponin T C-Reactive Protein NT-Pro-B Natriuret Pep Total Protein Albumin LDL Cholesterol Direct Vitamin B12 Fluid Glucose Fluid Total Protein Vancomycin Trough Crossmatch 12/30/21 12/31/21 12/31/21 04:05 00:07 04:00 WBC RBC 3.05 L Hgb 8.5 L Hct 25.5 L MCV MCH MCHC RDW 18.2 H Plt Count Seg Neuts % (Manual) Lymphocytes % (Manual) Seg Neutrophils # Man Lymphocytes # (Manual) Monocytes # (Manual) PT INR D-Dimer ABG pH ABG pO2 ABG HCO3 ABG O2 Saturation ABG Base Excess ABG Hemoglobin Oxyhemoglobin Sodium 136 L Potassium 3.5 L Chloride Carbon Dioxide BUN Creatinine 0.4 L Glucose POC Glucose 139 H Lactic Acid Calcium Phosphorus Magnesium 1.50 L AST ALT Alkaline Phosphatase Lactate Dehydrogenase Troponin T C-Reactive Protein NT-Pro-B Natriuret Pep Total Protein Albumin LDL Cholesterol Direct Vitamin B12 Fluid Glucose Fluid Total Protein Vancomycin Trough Crossmatch 12/31/21 12/31/21 12/31/21 04:00 04:52 11:23 WBC RBC Hgb Hct MCV MCH MCHC RDW Plt Count Seg Neuts % (Manual) Lymphocytes % (Manual) Seg Neutrophils # Man Lymphocytes # (Manual) Monocytes # (Manual) PT INR D-Dimer ABG pH ABG pO2 ABG HCO3 ABG O2 Saturation ABG Base Excess ABG Hemoglobin Oxyhemoglobin Sodium Potassium Chloride Carbon Dioxide BUN 19 H Creatinine 0.4 L Glucose 116 H POC Glucose 121 H 116 H Lactic Acid Calcium Phosphorus Magnesium AST ALT Alkaline Phosphatase Lactate Dehydrogenase Troponin T C-Reactive Protein NT-Pro-B Natriuret Pep Total Protein Albumin LDL Cholesterol Direct Vitamin B12 Fluid Glucose Fluid Total Protein Vancomycin Trough Crossmatch 12/31/21 01/01/22 01/01/22 17:42 04:31 04:31 WBC RBC 2.83 L Hgb 7.7 L Hct 23.2 L MCV MCH 27 L MCHC RDW 18.3 H Plt Count Seg Neuts % (Manual) Lymphocytes % (Manual) Seg Neutrophils # Man Lymphocytes # (Manual) Monocytes # (Manual) PT INR D-Dimer ABG pH ABG pO2 ABG HCO3 ABG O2 Saturation ABG Base Excess ABG Hemoglobin Oxyhemoglobin Sodium 135 L Potassium Chloride 97.7 L Carbon Dioxide BUN 21 H Creatinine 0.5 L Glucose 127 H POC Glucose 107 H Lactic Acid Calcium 8.0 L Phosphorus Magnesium AST ALT Alkaline Phosphatase Lactate Dehydrogenase Troponin T C-Reactive Protein NT-Pro-B Natriuret Pep Total Protein Albumin LDL Cholesterol Direct Vitamin B12 Fluid Glucose Fluid Total Protein Vancomycin Trough Crossmatch 01/01/22 01/01/22 01/01/22 05:24 11:25 18:11 WBC RBC Hgb Hct MCV MCH MCHC RDW Plt Count Seg Neuts % (Manual) Lymphocytes % (Manual) Seg Neutrophils # Man Lymphocytes # (Manual) Monocytes # (Manual) PT INR D-Dimer ABG pH ABG pO2 ABG HCO3 ABG O2 Saturation ABG Base Excess ABG Hemoglobin Oxyhemoglobin Sodium Potassium Chloride Carbon Dioxide BUN Creatinine Glucose POC Glucose 124 H 140 H 144 H Lactic Acid Calcium Phosphorus Magnesium AST ALT Alkaline Phosphatase Lactate Dehydrogenase Troponin T C-Reactive Protein NT-Pro-B Natriuret Pep Total Protein Albumin LDL Cholesterol Direct Vitamin B12 Fluid Glucose Fluid Total Protein Vancomycin Trough Crossmatch 01/01/22 01/02/22 01/02/22 23:26 04:01 04:01 WBC RBC 2.57 L Hgb 7.1 L Hct 21.5 L MCV MCH MCHC RDW 18.1 H Plt Count Seg Neuts % (Manual) Lymphocytes % (Manual) Seg Neutrophils # Man Lymphocytes # (Manual) Monocytes # (Manual) PT INR D-Dimer ABG pH ABG pO2 ABG HCO3 ABG O2 Saturation ABG Base Excess ABG Hemoglobin Oxyhemoglobin Sodium 131 L Potassium 3.5 L Chloride 94.8 L Carbon Dioxide BUN 27 H Creatinine Glucose 121 H POC Glucose 121 H Lactic Acid Calcium Phosphorus Magnesium AST ALT Alkaline Phosphatase Lactate Dehydrogenase Troponin T C-Reactive Protein NT-Pro-B Natriuret Pep Total Protein Albumin LDL Cholesterol Direct Vitamin B12 Fluid Glucose Fluid Total Protein Vancomycin Trough Crossmatch 01/02/22 01/02/22 01/02/22 05:30 11:10 16:08 WBC RBC Hgb Hct MCV MCH MCHC RDW Plt Count Seg Neuts % (Manual) Lymphocytes % (Manual) Seg Neutrophils # Man Lymphocytes # (Manual) Monocytes # (Manual) PT INR D-Dimer ABG pH ABG pO2 ABG HCO3 ABG O2 Saturation ABG Base Excess ABG Hemoglobin Oxyhemoglobin Sodium Potassium Chloride Carbon Dioxide BUN Creatinine Glucose POC Glucose 124 H 117 H 130 H Lactic Acid Calcium Phosphorus Magnesium AST ALT Alkaline Phosphatase Lactate Dehydrogenase Troponin T C-Reactive Protein NT-Pro-B Natriuret Pep Total Protein Albumin LDL Cholesterol Direct Vitamin B12 Fluid Glucose Fluid Total Protein Vancomycin Trough Crossmatch 01/02/22 01/02/22 01/03/22 17:30 23:26 04:53 WBC RBC 2.82 L Hgb 7.7 L Hct 23.4 L MCV MCH 27 L MCHC RDW 18.0 H Plt Count Seg Neuts % (Manual) Lymphocytes % (Manual) Seg Neutrophils # Man Lymphocytes # (Manual) Monocytes # (Manual) PT INR D-Dimer ABG pH ABG pO2 ABG HCO3 ABG O2 Saturation ABG Base Excess ABG Hemoglobin Oxyhemoglobin Sodium Potassium Chloride Carbon Dioxide BUN Creatinine Glucose POC Glucose 114 H Lactic Acid Calcium Phosphorus Magnesium AST ALT Alkaline Phosphatase Lactate Dehydrogenase Troponin T C-Reactive Protein NT-Pro-B Natriuret Pep Total Protein Albumin LDL Cholesterol Direct Vitamin B12 Fluid Glucose Fluid Total Protein Vancomycin Trough 22.8 H Crossmatch 01/03/22 01/03/22 01/03/22 04:53 06:23 17:35 WBC RBC Hgb Hct MCV MCH MCHC RDW Plt Count Seg Neuts % (Manual) Lymphocytes % (Manual) Seg Neutrophils # Man Lymphocytes # (Manual) Monocytes # (Manual) PT INR D-Dimer ABG pH ABG pO2 ABG HCO3 ABG O2 Saturation ABG Base Excess ABG Hemoglobin Oxyhemoglobin Sodium 133 L Potassium Chloride 96.2 L Carbon Dioxide BUN 30 H Creatinine Glucose 107 H POC Glucose 122 H 107 H Lactic Acid Calcium Phosphorus Magnesium AST ALT Alkaline Phosphatase Lactate Dehydrogenase Troponin T C-Reactive Protein NT-Pro-B Natriuret Pep Total Protein Albumin LDL Cholesterol Direct Vitamin B12 Fluid Glucose Fluid Total Protein Vancomycin Trough Crossmatch 01/04/22 01/04/22 01/04/22 04:00 12:32 16:45 WBC RBC Hgb Hct MCV MCH MCHC RDW Plt Count Seg Neuts % (Manual) Lymphocytes % (Manual) Seg Neutrophils # Man Lymphocytes # (Manual) Monocytes # (Manual) PT INR D-Dimer ABG pH ABG pO2 ABG HCO3 ABG O2 Saturation ABG Base Excess ABG Hemoglobin Oxyhemoglobin Sodium 132 L Potassium Chloride 92.8 L Carbon Dioxide BUN 30 H Creatinine Glucose 115 H POC Glucose 111 H 111 H Lactic Acid Calcium Phosphorus Magnesium 1.60 L AST ALT Alkaline Phosphatase Lactate Dehydrogenase Troponin T C-Reactive Protein NT-Pro-B Natriuret Pep Total Protein Albumin LDL Cholesterol Direct Vitamin B12 Fluid Glucose Fluid Total Protein Vancomycin Trough Crossmatch 01/05/22 01/05/22 01/05/22 04:30 04:30 17:04 WBC RBC 3.11 L Hgb 8.4 L Hct 25.5 L MCV MCH 27 L MCHC RDW 17.6 H Plt Count Seg Neuts % (Manual) Lymphocytes % (Manual) Seg Neutrophils # Man Lymphocytes # (Manual) Monocytes # (Manual) PT INR D-Dimer ABG pH ABG pO2 ABG HCO3 ABG O2 Saturation ABG Base Excess ABG Hemoglobin Oxyhemoglobin Sodium 135 L Potassium Chloride 93.6 L Carbon Dioxide BUN 29 H Creatinine Glucose POC Glucose 67 L Lactic Acid Calcium Phosphorus Magnesium AST ALT Alkaline Phosphatase Lactate Dehydrogenase Troponin T C-Reactive Protein NT-Pro-B Natriuret Pep Total Protein Albumin LDL Cholesterol Direct Vitamin B12 Fluid Glucose Fluid Total Protein Vancomycin Trough Crossmatch 01/05/22 01/06/22 01/06/22 23:27 04:06 04:06 WBC RBC 2.89 L Hgb 7.7 L Hct 23.8 L MCV MCH 27 L MCHC RDW 18.0 H Plt Count Seg Neuts % (Manual) Lymphocytes % (Manual) Seg Neutrophils # Man Lymphocytes # (Manual) Monocytes # (Manual) PT 16.9 H INR 1.23 H D-Dimer ABG pH ABG pO2 ABG HCO3 ABG O2 Saturation ABG Base Excess ABG Hemoglobin Oxyhemoglobin Sodium Potassium Chloride Carbon Dioxide BUN Creatinine Glucose POC Glucose 110 H Lactic Acid Calcium Phosphorus Magnesium AST ALT Alkaline Phosphatase Lactate Dehydrogenase Troponin T C-Reactive Protein NT-Pro-B Natriuret Pep Total Protein Albumin LDL Cholesterol Direct Vitamin B12 Fluid Glucose Fluid Total Protein Vancomycin Trough Crossmatch 01/06/22 01/06/22 01/06/22 04:06 13:40 23:41 WBC RBC Hgb Hct MCV MCH MCHC RDW Plt Count Seg Neuts % (Manual) Lymphocytes % (Manual) Seg Neutrophils # Man Lymphocytes # (Manual) Monocytes # (Manual) PT INR D-Dimer ABG pH ABG pO2 ABG HCO3 ABG O2 Saturation ABG Base Excess ABG Hemoglobin Oxyhemoglobin Sodium 132 L Potassium Chloride 92.3 L Carbon Dioxide BUN 26 H Creatinine Glucose 111 H POC Glucose 120 H Lactic Acid Calcium Phosphorus Magnesium AST ALT Alkaline Phosphatase Lactate Dehydrogenase Troponin T C-Reactive Protein NT-Pro-B Natriuret Pep Total Protein Albumin LDL Cholesterol Direct Vitamin B12 Fluid Glucose 96 H Fluid Total Protein < 3.0 L Vancomycin Trough Crossmatch 01/07/22 01/07/22 01/07/22 05:20 11:30 17:00 WBC RBC Hgb Hct MCV MCH MCHC RDW Plt Count Seg Neuts % (Manual) Lymphocytes % (Manual) Seg Neutrophils # Man Lymphocytes # (Manual) Monocytes # (Manual) PT INR D-Dimer ABG pH ABG pO2 ABG HCO3 ABG O2 Saturation ABG Base Excess ABG Hemoglobin Oxyhemoglobin Sodium Potassium Chloride Carbon Dioxide BUN Creatinine Glucose POC Glucose 111 H 113 H 121 H Lactic Acid Calcium Phosphorus Magnesium AST ALT Alkaline Phosphatase Lactate Dehydrogenase Troponin T C-Reactive Protein NT-Pro-B Natriuret Pep Total Protein Albumin LDL Cholesterol Direct Vitamin B12 Fluid Glucose Fluid Total Protein Vancomycin Trough Crossmatch 01/07/22 01/08/22 01/08/22 23:41 11:26 16:23 WBC RBC Hgb Hct MCV MCH MCHC RDW Plt Count Seg Neuts % (Manual) Lymphocytes % (Manual) Seg Neutrophils # Man Lymphocytes # (Manual) Monocytes # (Manual) PT INR D-Dimer ABG pH ABG pO2 ABG HCO3 ABG O2 Saturation ABG Base Excess ABG Hemoglobin Oxyhemoglobin Sodium Potassium Chloride Carbon Dioxide BUN Creatinine Glucose POC Glucose 110 H 129 H 118 H Lactic Acid Calcium Phosphorus Magnesium AST ALT Alkaline Phosphatase Lactate Dehydrogenase Troponin T C-Reactive Protein NT-Pro-B Natriuret Pep Total Protein Albumin LDL Cholesterol Direct Vitamin B12 Fluid Glucose Fluid Total Protein Vancomycin Trough Crossmatch 01/09/22 01/10/22 01/10/22 18:13 00:27 04:00 WBC RBC Hgb Hct MCV MCH MCHC RDW Plt Count Seg Neuts % (Manual) Lymphocytes % (Manual) Seg Neutrophils # Man Lymphocytes # (Manual) Monocytes # (Manual) PT INR D-Dimer ABG pH ABG pO2 ABG HCO3 ABG O2 Saturation ABG Base Excess ABG Hemoglobin Oxyhemoglobin Sodium 133 L Potassium Chloride 92.6 L Carbon Dioxide 31 H BUN 29 H Creatinine 0.5 L Glucose 115 H POC Glucose 118 H 111 H Lactic Acid Calcium Phosphorus Magnesium AST ALT Alkaline Phosphatase Lactate Dehydrogenase Troponin T C-Reactive Protein NT-Pro-B Natriuret Pep Total Protein Albumin LDL Cholesterol Direct Vitamin B12 Fluid Glucose Fluid Total Protein Vancomycin Trough Crossmatch 01/10/22 01/11/22 01/11/22 05:47 05:10 11:14 WBC RBC Hgb Hct MCV MCH MCHC RDW Plt Count Seg Neuts % (Manual) Lymphocytes % (Manual) Seg Neutrophils # Man Lymphocytes # (Manual) Monocytes # (Manual) PT INR D-Dimer ABG pH ABG pO2 ABG HCO3 ABG O2 Saturation ABG Base Excess ABG Hemoglobin Oxyhemoglobin Sodium Potassium Chloride Carbon Dioxide BUN Creatinine Glucose POC Glucose 106 H 118 H 136 H Lactic Acid Calcium Phosphorus Magnesium AST ALT Alkaline Phosphatase Lactate Dehydrogenase Troponin T C-Reactive Protein NT-Pro-B Natriuret Pep Total Protein Albumin LDL Cholesterol Direct Vitamin B12 Fluid Glucose Fluid Total Protein Vancomycin Trough Crossmatch 01/11/22 01/11/22 01/12/22 17:14 23:52 05:39 WBC RBC Hgb Hct MCV MCH MCHC RDW Plt Count Seg Neuts % (Manual) Lymphocytes % (Manual) Seg Neutrophils # Man Lymphocytes # (Manual) Monocytes # (Manual) PT INR D-Dimer ABG pH ABG pO2 ABG HCO3 ABG O2 Saturation ABG Base Excess ABG Hemoglobin Oxyhemoglobin Sodium Potassium Chloride Carbon Dioxide BUN Creatinine Glucose POC Glucose 117 H 110 H 110 H Lactic Acid Calcium Phosphorus Magnesium AST ALT Alkaline Phosphatase Lactate Dehydrogenase Troponin T C-Reactive Protein NT-Pro-B Natriuret Pep Total Protein Albumin LDL Cholesterol Direct Vitamin B12 Fluid Glucose Fluid Total Protein Vancomycin Trough Crossmatch 01/13/22 11:15 WBC RBC Hgb Hct MCV MCH MCHC RDW Plt Count Seg Neuts % (Manual) Lymphocytes % (Manual) Seg Neutrophils # Man Lymphocytes # (Manual) Monocytes # (Manual) PT INR D-Dimer ABG pH ABG pO2 ABG HCO3 ABG O2 Saturation ABG Base Excess ABG Hemoglobin Oxyhemoglobin Sodium Potassium Chloride Carbon Dioxide BUN Creatinine Glucose POC Glucose 113 H Lactic Acid Calcium Phosphorus Magnesium AST ALT Alkaline Phosphatase Lactate Dehydrogenase Troponin T C-Reactive Protein NT-Pro-B Natriuret Pep Total Protein Albumin LDL Cholesterol Direct Vitamin B12 Fluid Glucose Fluid Total Protein Vancomycin Trough Crossmatch Allied health notes reviewed: RT
[2022-01-13] MEDS: ONDANSETRON 4 MG/2 ML INJ IV PRN ×2 (18:48→20:29)
[2022-01-13] MEDS: traZODone 50 MG TAB PO SCH (21:04)
[2022-01-13] MEDS: MELATONIN 5 MG TAB PO SCH (21:05)
[2022-01-13] MEDS: PRAVASTATIN 20 MG TAB FEEDTUBE SCH (21:12)
[2022-01-14] MEDS ORDERED: ONDANSETRON 4 MG/2 ML INJ IV ONE (00:24)
[2022-01-14] MEDS: ACETAMINOPHEN 325 MG/10.15 ML ORAL LIQD UNIT DOSE FEEDTUBE PRN (01:00)
[2022-01-14] MEDS: METOCLOPRAMIDE 10 MG/2 ML INJ IV PRN ×2 (02:59→14:56)
[2022-01-14] MEDS: ALPRAZolam 0.25 MG TAB FEEDTUBE PRN (03:03)
[2022-01-14] MEDS: ONDANSETRON 4 MG/2 ML INJ IV PRN (06:28)
[2022-01-14] MEDS: LEVOTHYROXINE 125 MCG TAB FEEDTUBE SCH (06:29)
[2022-01-14] MEDS: SUCRALFATE 1 GM/10 ML ORAL LIQD FEEDTUBE SCH ×3 (06:29→17:43)
[2022-01-14] MEDS: HYDROcodone/ACETAMINOPHEN 10-325MG TAB FEEDTUBE SCH ×3 (09:01→21:14)
[2022-01-14] MEDS: busPIRone 5 MG TAB FEEDTUBE SCH ×2 (09:02→21:14)
[2022-01-14] MEDS: DOCUSATE SODIUM 100 MG/10 ML ORAL LIQD FEEDTUBE SCH ×2 (09:02→21:14)
[2022-01-14] MEDS: SENNOSIDES ORAL LIQD 8.8 MG/5 ML ORAL LIQD FEEDTUBE SCH ×2 (09:02→21:13)
[2022-01-14] MEDS: SPIRONOLACTONE 25 MG TAB FEEDTUBE SCH (09:02)
[2022-01-14] MEDS: FUROSEMIDE 20 MG TAB PO SCH (09:02)
[2022-01-14] MEDS: VANCOMYCIN/NS 1 GM/250 ML 1 GM/250 ML BAG IV SCH (09:03)
[2022-01-14] MEDS: METOPROLOL TARTRATE 25 MG TAB FEEDTUBE SCH ×2 (09:04→21:15)
[2022-01-14] MEDS: QUEtiapine 25 MG TAB FEEDTUBE SCH (09:04)
[2022-01-14] MEDS: LANSOPRAZOLE 30 MG SOLUTAB FEEDTUBE SCH ×2 (09:04→21:14)
[2022-01-14] MEDS: GABAPENTIN 100 MG CAP FEEDTUBE SCH (09:04)
[2022-01-14] MEDS: MIDODRINE 5 MG TAB FEEDTUBE SCH ×3 (09:09→17:43)
[2022-01-14] MEDS: POLYETHYLENE GLYCOL 3350 17 GM POWDER FEEDTUBE SCH (09:09)
--- NOTE | 2022-01-14 11:39 | Progress Note ---
Assessment and Plan Assessment and plan: This is an 82-year-old female with DM, HTN , CHB s/p PPM, CAD s/p PCI and arthritis who presented to the emergency department on 11/04 for shortness of breath ongoing for the past 3 days, cough and according to family a fever of 102.2. Upon arrival of EMS patient was found to be tachypneic and hypoxic with SPO2 of 76% on room air which later improved to 88% on nonrebreather. Work-up in the emergency department included a CXR which showed bilateral interstitial pulmonary edema with bilateral pleural effusions and bibasilar opacities, leukocytosis and anemia with a hemoglobin of 6.1. Patient was admitted to the hospitalist service with acute anemia, acute hypoxic respiratory failure, bilateral pneumonia and COVID-19 PUI with consults to pulmonology, infectious disease and later cardiology. Patient was eventually intubated in the emergency department on 11/06. Hospital Course to date: 11/04/2021: Empiric therapy with iv levaquin/vancomycin. COVID PCR pending. Will consult ID. PCCM consulted, will follow recs. Hypotensive this AM, ordered bolus and fluids at 150 cc/hr. May require pressor support if bp does not improve. 11/05/2021: GBS on bcx +, currently on rocephin IV. Currently on bipap due to respiratory distress overnight. Worsening BL opacities on CXR. May be volume overload vs pneumonia. Unfortunately bp too low for lasix at this point. WIll continue levophed and bipap. Once able to tolerate, may do trial of albumin/lasix. Call attempt made to Niraj, no response. Will try again tomorrow to update. 11/06/2021: Decompensated overnight requiring intubation. CXR shows worsening interstitial infiltrates. Currenlty on dopamine, levophed, vasopressin. PICC line ordered. Advised RN to place gamble for I/O monitoring. Would benefit from diuresis but very volume overloaded. Prognosis guarded 11/08: Off sedation this am, remains unresponsive only grimace to pain. Hold all sedatives agents for now, patient is off pressors this am. Hypernatremia from today's lab- D5W X1bag, and low K repleted, repeat lab in the am. Severe constipation also noted from KUB, BR added. 11/09: Sudden SPO2 drop in the 60s this am. Patient was manually bagged and deep suctioned. Patient is currently stable on the vent, repeat CXR with no significant change. D/w CCM Mucomyst and brochodilator added. Patient mentation is unchanged, continue to hold off on sedative agents. Neurology consulted. 11/10: Acute DVT noted on bilateral lower extremity Doppler ultrasound therefore she was started on Lovenox treatment dose. Failed SBT. Hypernatremia and hyperchloremia noted, free water flush adjusted. 11/11: Patient noted to be febrile with increasing of the cytosis, UA/BC sent and CXR ordered. ID escalated antibiotics to cefepime. CXR demonstrated mucous plug, bedside bronchoscopy was performed and O ETT was changed over bougie from 6 cm to 7.5. Patient was noted to have a pneumothorax postprocedure and chest tube was placed. Family updated by [facility]. Free water flush increased and will add Jaswant supplementation. 11/12: Patient not noted to follow commands, hypernatremia worsen/persist, increasing free water flush, potassium and magnesium and phosphorus repleted. Hemoglobin noted to be 7./24.5 from 7.03/12 yesterday. We will continue to trend and monitor. Vent changes per [facility]. Repeat CXR showed no residual pneumothorax. Consider waterseal tomorrow. Given persistent leukocytosis antibiotics escalated to cefepime per ID. 11/13: Remains on cefepime and vancomycin, vent changes per [facility]. Anemia noted and given 1 unit PRBC. And beta-charleen held in setting of Levophed drip infusing. Remains on fentanyl drip. 11/14: Patient put on CPAP trial by [facility], will continue chest tube until after extubation. Will rest on assist control. CT brain was cancelled by radiology director and reordered. 11/15: Patient removed chest tube overnight. Will obtain cxr. remains on low dose levo. CTH completed with no acute findings. RT to place on CPAP. 11/16: Hypernatremia/hyperchloremia noted on the increase of day water flushes. Anemia noted and ordered PRBC. asked RT to place on cpap but not done yet 11/17: Patient remains on the vent, awake and following commands. H&H stable s/p 2units PRBCs. GI on consult, no intervention at this time. Will continue protonix gtt and serial H&H Q6hrs. Keep patient NPO for now, D5w added for hypernatremia and NPO status. Plan for IVC filter placement today by Vascular. 11/18: Patient is s/p IVC filter. H&H continue to trend down, hbg 6.1 this am, 1 unit of PRBCs ordered. Plan for possible EGD today by GI. Keep patient NPO, continue PPI drip and serial H&H Q6hrs. Electrolytes repleted, repeat lab in the am 11/19: S/p EGD- larger duodenal ulcer noted, see operative note. GI recommendations noted also noted. H&H stable this am. Keep patient on protonix gtt for now. Will keep patient NPO, continue IVF and serial H&H for now. Electrolytes repleted, repeat labs in the am 11/20: Very agitated and restless this am, fentanyl gtt resumed. Patient remains on protonix gtt, H&H remains stable. Will switch protonix gtt to IV BID, continue carafate and okay to resume meds at this time. Will F/u with GI to see if TF can be resumed. Gamble was reinserted overnight for retention. Electrolytes repleted, repeat in the am. Plan for possible PST today for possible extubation per CCM. 11/21: Patient is now on seroquel and patient's home buspar resumed. Patient more calm this morning, fentanyl gtt is off. H&H remains stable and patient is tolerating TF. Patient had a runs of Vtach/PVCs this am, BB added per Cardio. Continue daily PS and wean trial for possible extubation. 11/22: Back on fentanyl gtt overnight , RASS o to -1, following commands. Patient failed PST this am due to increased work of breathing and low SPO2, ABG pending. Patient is also with worsen pitting edema, lasix is still on hold. Will discuss with cardio and CCM to possibly resume lasix. 11/23: MARIA DEL CARMEN overnight. Patient failed PST again this am. Per CCM plan for possible trach and PEG, hold off on IV lasix for now. General surgery consulted and family is aware of possible Trach and PEG. 11/24: Trach/PEG pending this week, continue SBT/SAT as tolerated. No acute events reported overnight. 11/25: Patient was n.p.o. overnight and will remain n.p.o. tonight for trach/PEG tomorrow morning. She failed to support trial again. KUB obtained due to distended belly. 11/26: Patient scheduled for tracheostomy and PEG tube placement today, has been n.p.o. since midnight. No acute events reported overnight. [facility] ordered simethicone scheduled. 11/27: No acute events reported overnight, patient received trach/PEG yesterday. Has been on feedings since last night. Still awaiting LTAC placement. 11/28: Patient magnesium repleted, repeat a.m. labs, SBT 11/29: Patient complains of chest pain but ECG obtained which showed no acute findings, ordered troponin. Patient failed CPAP yesterday and was trialed again today. levophed was restarted but will aggressively wean 11/30: Patient failed SBT. Continue supportive care. Started gabapentin today 12/01: MARIA DEL CARMEN overnight. Continue daily PST. Case management to arrange possible placement 12/02: Report of dark stools overnight, patient is hemodynamically stable. H&H stable, patient is on PPI. Will continue to trend H&H. Continue daily PST as tolerated. Awaiting LTAC vs SNF placement. 12/03: Hypotensive overnight, requiring low dose pressors. S/p X3 days of gentle diurese. Will continue to monitor, wean off pressors as tolerated for MAP of 65. Patient Failed PST yesterday, case management to follow up with insurance for possible LTAC placement. Continue daily PST as tolerated. PT eval and treat ordered. 12/04: Increased agitation and anxiety overnight, remains on buspar and seroquel, trazadone added to promote rest. Patient is now working with PT, keep patient engage and awake during the day so she can rest at night. No BM for over 5 days, BR was adjusted. Patient did not tolerate PST again yesterday, continue daily PST as tolerated. Continue to titrate pressor for MAP above 65. Pending possible LTAC placement, case management to arrange. 12/05: Still not getting much rest overnight, will add melatonin for sleep. Continue to engage patient during the day and promote rest at night. TF was held due to concern for possible bleeding, H&H remains stable and stools normal this am. Resume TF and continue PPI and carafate. Remains on low dose levophed, titrate as tolerated. Continue daily PST. Possible LTAC placement, awaiting approval. 12/06: MARIA DEL CARMEN overnight. Patient rested overnight. Continue supportive measures. Daily PST as tolerated. Awaiting possible LTAC placement 12/07: MARIA DEL CARMEN overnight. Plan for Tpiece trial today. Continue current supportive measures. Possible LTAC placement 12/08: Patient placed on pressure support trial again today, started on Xanax, no acute events reported overnight. Awaiting insurance approval for LTAC. 12/09: Levophed discontinued, LTAC transfer denied, started on midodrine and Lasix, ultrasound chest pending, started on Xanax 0.[address] De León updated family at bedside today. Started on Dilaudid every 3 hours as needed. 12/10: Patient placed on CPAP trial this morning, no acute events reported overnight. Will order ultrasound-guided thoracentesis. 12/11: Patient had a thoracentesis today, will decrease Xanax dosage and continue midodrine and diuresing. Patient failed CPAP today. 12/12: Patient not tolerate CPAP trials today, no acute events reported overnight 12/13: No acute events overnight. continue PSV trials as tolerated. Daughter upd ated at bedside 12/14: Patient noted to be anemic today, ordered gastric occult. Patient seems to be oversedated therefore Xanax changed to as needed and fentanyl patch discontinued. We will continue to monitor hyponatremia. 12/15: MARIA DEL CARMEN overnight. s/p 1unit of PRBCs, H&H stable this am, no signs of any active bleeding. Continue daily PST as tolerated. Awaiting placement. 12/16: Hypertensive this am, Midodrine decreased. Continue daily PST. MARIA DEL CARMEN overnight 12/17: Patient Hgb dropped to 6 this am, no s/s of any active bleeding, VSS. Patient received 1unit of PRBC, will continue to trend H&H. Patient was pancultured and back on IV Abx due to persistent fevers yesterday. ID is also back on the case. Continue IV Abx per ID and f/u on cultures data for sensitivity. Patient also failed PST yesterday, continue daily PST as tolerated. Electrolytes repleted, repeat labs in the am. 12/18: Patient blood cultures is growing GPC 4 out 4 bottles. PICC line D/Rivas, patient is already on IV Abx-cefepine and Vanc and ID is following. Patient remains hemodynamically stable. Daily PST as tolerated adn PRN Benzo for anxiety. 12/19: MARIA DEL CARMEN overnight. Culture data noted, continue IV Abx per ID. Orders placed for repeat Bculture. Gamble D/C overnight, patient is voiding. Check bladder scan as needed for retention. Patient failed PST again today. Continue daily PST as tolerated. 12/20: Fevers improved, Cultures +MRSA, on Vanco per ID. Repeat 2D Echo to r/o endocarditis. Patient continue to fail PST, PEEP increased to 8 today. Continue pulmonary hygiene and vent wean per CCM. Sodium tab added for hyponatremia. 12/22: Patient on pressure support trial for approximately 4 hours today, midodrine dosage increased due to hypotension. Lasix discontinued. 12/23: Started on a.m. Seroquel dose, midodrine increased to 10 mg 3 times daily, 500 mL normal saline bolus. 12/24: Seroquel dose changed (25 every morning, 75 nightly). updated at bedside by Dr. De León. CPAP trials as tolerated. Continue vancomycin. Awaiting placement. 12/25: Continue CPAP as tolerated, added gasx for distention. Continue supportive care 12/26: Patient failed PSV this AM. no acute events overnight. 12/27: GI re-consulted due to abdominal distention. No acute events reported overnight. CPAP trials as tolerated. Dr. Mckenna will get a KUB to rule out possible obstruction. 12/28: KUB shows no acute process, CXR shows improvement. CPAP trials as tolerated. 12/29: CT Abd/pelvis noted with moderated bilateral pleural effusion, anasarca, and ascites. X1dose of IV lasix administered. D/w CCM and GI orders plan for thora and paracentesis by IR. Will also start patient on aldactone Qday. Patient is tolerating trickle feeds this am, continue TF and BR adjusted for constipation. Plan of care was discussed with patient and her at the bedside. Thorough discussion on patient's overall poor prognosis and that eddie ent will most likely be vent dependent. Patient's voiced understanding of the info given. All questions and concerns were voiced at this time. 12/30: Patient did not tolerate thoracentesis in IR yesterday due to change in LOC and hypoxia. Plan for possible bedside thoracentesis and paracentesis today. Patient remains afebrile. Patient required termite technician IV abx therapy [id number] left, orders placed for a PICC. Patient remains with sign. Piting edema and anasarca, X1 does of PO Zaroxolyn and 2m of IV lasix given. Electrolytes repleted, repeat lab in the am. 12/31: Tolerated Rt. thoracentesis at the bedside yesterday, 1.4L removed. Patient remains stable on the vent this am, tolerating CPAP today PS dropped to 14. Recent CXR noted, left pleural effusion improved. Patient tolerated gentle diurese yesterday, good urine output reported. D/w CCM hold off on Left thoracentesis today, continue PO Aldactone and additonal zaroxolyn and IV lasix again today. F/u CXR in the am. 01/01: This am CXR noted with worsening bilateral pleural effusion. Patient is stable and tolerating PST this am, however PS is back up to 20 this am. BP is soft this am will hold off on IV diuretic for today, continue PO Aldactone. D/w CCM continue gentle diurese as tolerated. Will reassess in the am. Continue s upport care. 01/02: MARIA DEL CARMEN overnight. VSS this am, tolerating PST. X1dose of 25% IV Albumin following with 20mg IV Lasix today. Continue daily gentle diurese if hemodynamics tolerate it. Continue to monitor and replace electrolytes as needed 01/03: Abdominal distention and vomiting overnight, 600cc of gastric residual removed, TF held. KUB with no acute abnormality. Reglan added X2days, resume TF, and continue BR. Patient is tolerating PST this am. Hemodynamics remains stable, will continue gentle IV diurese. close monitoring to renal function and electrolytes. 01/04: Tolerating TF, nausea/vomiting resolved, last BM on 01/03. Continue Reglan X1 more day. Patient continue to tolerate PST. D/W CCM continue gentle diurese. F/U CXR in the am. Possible US thoracentesis tomorrow. 01/05: no acute events overnight. scheduled for thoracentesis today but procedure pushed to tomorrow. TF restarted and will be NPO post MN. 01/06: planned thoracentesis today. Working with CM for ltac/snf approval. 01/07: s/p thoracentesis 120 cc appears to have been removed. Pulm recommendations noted, agree with continued diuresis and weaning. Continued planning with CM for ltac/snf placement. 01/08: No new issues. Continue vent weaning per pulmonary. Continuing to work with CM for placement. 01/09: No new issues. Continue vent weaning per pulmonary. Continuing to work with CM for placement. Ordered BMP for tomorrow to check kidney function as patient is currently being diuresed. 01/10: No new issues. Continue vent weaning/diuresis as directed by pulmonary medicine.BMP demonstrates normal renal function and potassium. Sodium and Chloride consistent with prior labs. Will recheck BMP in 2 days. Placement continues to be an issue as patient has been denied at all facilities. Will reasses with CM on wednesday. 01/11: Emesis overnight. Do not suspect that she is obstructed as she had 2 BM reported. Will order Reglan prn, drop TF rate to goal of 30 cc/hr. Will continue to work on placement. 01/12: Per RN patient had reported that she was tired and did not want to persist in her current state of health. D/w patient Niraj at patient bedside and stated that I recommended the patient/family at least talk with hospice to get a better understanding of their care. He was agreeable. I spoke with Ms. Busby who will help set up referral for hospice service so that family can be educated and, if the patient chooses, can pursue this option. 01/13: Continue supportive care. Family discussing about hospice. Continue reinforcement and continue weaning as tolerated. Prognosis is guarded and poor. Patient is clinically stable to transfer to the next level of care has not required any escalation in management. Has been stable on the vent awake alert following commands. 01/14: [id number]. Considering abdominal distention tube feedings hold along with the fact that the patient vomited yesterday. Will obtain a CT abdomen and pelvis to further evaluate placement. Discussed with nursing staff. Awaiting to have a family conversation with the for goals of care discussion again. Assessment and Plan Neuro : Anxiety, chronic pain -Neurology consulted, appreciate recommendations -CT brain showed no acute events -EEG interpreted as abnormal record due to diffuse slowing noted throughout the recording, suggestive of encephalopathic process and/or drug effect, possibilities of postictal state cannot be totally excluded. Clinical correla tion is in order -MRI brain not obtained-> patient has metal in her body -Repeat CT head with no acute findings -Reorientation as needed -Ammonia 42, B12 1823, TSH 1.5 -BuSpar, Seroquel, [place], gabapentin -prn xanax and Dilaudid Cardio: Acute Heart failure with reduced EF, h/o chronic heart block s/p PPM, HTN, CAD s/p PCI (2004), Moderate pulmonary HTN, cardiomyopathy -s/p vasopressor support with levophed -11/04 echocardiogram shows EF 30 to 35%, Moderate pulmonary HTN RVSP 49 -12/19 echo with 35-40% EF -Cardiology consulted, appreciate recommendations -Continue beta-charleen and statin therapy -Midodrine (titrate as needed) -Not on aspirin due to allergy -Blood pressure monitoring per protocol -As needed nitroglycerin Resp: Acute hypoxic respiratory failure secondary to bilateral pneumonia, bilateral pleural effusion. Right pneumothorax (resolved) -COVID-19 PCR negative -Intubated on 11/06 with 6.00 ETT at 18 at the lip and changed over bougie on 11/11-7.50 ETT at 20 at the lip -See RT notes for titration -PSV as tolerated -Surgery consult for trach -Received trach/PEG on 11/26 -S/p bedside bronchoscopy on 11/11 complicated by pneumothorax -S/p chest tube placement for right pneumothorax and dislodgment by patient on 11/15 -ABG/CXR per CCM -VAP bundle -Right chest wall ultrasound showed pleural effusion s/p chest tube -12/11 US thoracentesis removed 1L fluid -12/29 US thoracentesis removed 1.4L fluid -01/06 thoracentesis planned -SPO2 monitoring GI: S/p GI bleed, duodenal ulcer, transaminitis -GI consulted, appreciate recommendations-signed off -Nutrition consult for tube feeding, currently on nepro TF 45 cc/hr, dropped to 30 cc/hr due to concerns for emesis. -BR: Senokot -s/p peg 11/26 -H2 charleen -Carafate -24-hour +428 ml -10/2021 Gastric occult positive -> EGD-> duodenal ulcer -12/14 occult stool positive - reglan prn. : Urinary retention (resolved), hyponatremia, hypochloremia -Strict intake and output -Trend BMP ID: Septic shock (POA-resolved), bilateral pneumonia, MRSA bacteremia/pna -Infectious disease consulted, appreciate recommendations -COVID-19 PCR negative -Presented with fevers, leukocytosis and hypotension -11/04 blood cultures positive with a group B strep bacteremia 12/19 however repeat blood cultures on the with no growth to date -Echo showed no evidence of vegetation -repeat echo showed EF 35-40 % with no vegetations -ABX therapy: IV vancomycin for 4 weeks (12/16-01/26) -Monitor WBC and fever curve -Bedside bronchoscopy for mucous plug on CXR 11/11 -f/u blood cultures Heme: Acute DVT in the right external iliac vein, common femoral vein, superior aspect of femoral vein, Acute microcytic anemia -Evidenced on bilateral upper lower extremity ultrasound -S/p 7 unit PRBC -Trend CBC -Transfuse for hemoglobin less than 7 -heparin gtt dc d/t anemia -S/p IVC filter Endo: h/o DM and hypothyroidism -Continue home Synthroid -SSI -Accu-Cheks every 6 -Avoid hypoglycemia History Interval history: Patient seen and examined, still on the vent, although awake alert nonsedated, abdominal area swollen. vomiting reported yesterday Hospitalist Physical - Physical exam Narrative exam: VITAL SIGNS: Reviewed. GENERAL: The patient appears normally developed, trach to vent vital signs as documented. Frail appearing elderly woman. HEAD: No signs of head trauma. EYES: Pupils are equal. Extraocular motions intact. EARS: Hearing grossly intact. MOUTH: Oropharynx is normal. NECK: No adenopathy, no JVD. Trach to vent CHEST: Bl rhonchi CARDIAC: Regular rate and rhythm. S1 and S2, without murmurs, gallops, or rubs. VASCULAR: No Edema. Peripheral pulses normal and equal in all extremities. ABDOMEN: Soft, non tender and mildly distended. No rebound or guarding, and no masses palpated. Bowel Sounds normal. MUSCULOSKELETAL: Good range of motion of all major joints. Extremities without clubbing, cyanosis or edema. NEUROLOGIC EXAM: Alert and oriented x 3. no focal sensory or strength deficits. PSYCHIATRIC: anxious SKIN: detail exam as documented in skin assessment - Constitutional Vitals: Temp Pulse Resp BP Pulse Ox 97.8 F 72 21 101/32 93 01/14/22 08:00 01/14/22 11:00 01/14/22 11:00 01/14/22 11:00 01/14/22 09:01 General appearance: Present: no acute distress, other (Trach and on the vent) HEART Score - HEART Score Troponin: Troponin T 0.045 ng/mL (0.00-0.029) H 11/29/21 20:15 Results - Labs CBC & Chem 7: 01/06/22 04:06 01/10/22 04:00 Labs: Laboratory Last Values WBC 7.7 K/mm3 (4.5-11.0) 01/06/22 04:06 RBC 2.89 M/mm3 (3.65-5.03) L 01/06/22 04:06 Hgb 7.7 gm/dl (10.1-14.3) L 01/06/22 04:06 Hct 23.8 % (30.3-42.9) L 01/06/22 04:06 MCV 82 fl (79-97) 01/06/22 04:06 MCH 27 pg (28-32) L 01/06/22 04:06 MCHC 33 % (30-34) 01/06/22 04:06 RDW 18.0 % (13.2-15.2) H 01/06/22 04:06 Plt Count 225 K/mm3 (140-440) 01/06/22 04:06 Add Manual Diff Complete 12/20/21 04:54 Total Counted 100 12/20/21 04:54 Seg Neutrophils % Auto Locator 11/06/21 15:50 Seg Neuts % (Manual) 88.0 % (40.0-70.0) H 12/20/21 04:54 Band Neutrophils % 0 % 12/20/21 04:54 Lymphocytes % (Manual) 6.0 % (13.4-35.0) L 12/20/21 04:54 Reactive Lymphs % (Man) 0 % 12/20/21 04:54 Monocytes % (Manual) 5.0 % (0.0-7.3) 12/20/21 04:54 Eosinophils % (Manual) 1.0 % (0.0-4.3) 12/20/21 04:54 Basophils % (Manual) 0 % (0.0-1.8) 12/20/21 04:54 Metamyelocytes % 0 % 12/20/21 04:54 Myelocytes % 0 % 12/20/21 04:54 Promyelocytes % 0 % 12/20/21 04:54 Blast Cells % 0 % 12/20/21 04:54 Nucleated RBC % Not Reportable 12/20/21 04:54 Seg Neutrophils # Man 10.8 K/mm3 (1.8-7.7) H 12/20/21 04:54 Band Neutrophils # 0.0 K/mm3 12/20/21 04:54 Lymphocytes # (Manual) 0.7 K/mm3 (1.2-5.4) L 12/20/21 04:54 Abs React Lymphs (Man) 0.0 K/mm3 12/20/21 04:54 Monocytes # (Manual) 0.6 K/mm3 (0.0-0.8) 12/20/21 04:54 Eosinophils # (Manual) 0.1 K/mm3 (0.0-0.4) 12/20/21 04:54 Basophils # (Manual) 0.0 K/mm3 (0.0-0.1) 12/20/21 04:54 Metamyelocytes # 0.0 K/mm3 12/20/21 04:54 Myelocytes # 0.0 K/mm3 12/20/21 04:54 Promyelocytes # 0.0 K/mm3 12/20/21 04:54 Blast Cells # 0.0 K/mm3 12/20/21 04:54 WBC Morphology Not Reportable 12/20/21 04:54 Hypersegmented Neuts Not Reportable 12/20/21 04:54 Hyposegmented Neuts Not Reportable 12/20/21 04:54 Hypogranular Neuts Not Reportable 12/20/21 04:54 Smudge Cells Not Reportable 12/20/21 04:54 Toxic Granulation Not Reportable 12/20/21 04:54 Toxic Vacuolation Not Reportable 12/20/21 04:54 Dohle Bodies Not Reportable 12/20/21 04:54 Pelger-Huet Anomaly Not Reportable 12/20/21 04:54 Irina Rods Not Reportable 12/20/21 04:54 Platelet Estimate Consistent w auto 12/20/21 04:54 Clumped Platelets Not Reportable 12/20/21 04:54 Plt Clumps, EDTA Not Reportable 12/20/21 04:54 Large Platelets Not Reportable 12/20/21 04:54 Giant Platelets Not Reportable 12/20/21 04:54 Platelet Satelliting Not Reportable 12/20/21 04:54 Plt Morphology Comment Not Reportable 12/20/21 04:54 RBC Morphology Not Reportable 12/20/21 04:54 Dimorphic RBCs Not Reportable 12/20/21 04:54 Polychromasia Not Reportable 12/20/21 04:54 Hypochromasia Not Reportable 12/20/21 04:54 Poikilocytosis Not Reportable 12/20/21 04:54 Anisocytosis 1+ 12/20/21 04:54 Microcytosis Not Reportable 12/20/21 04:54 Macrocytosis Not Reportable 12/20/21 04:54 Spherocytes Not Reportable 12/20/21 04:54 Pappenheimer Bodies Not Reportable 12/20/21 04:54 Sickle Cells Not Reportable 12/20/21 04:54 Target Cells Not Reportable 12/20/21 04:54 Tear Drop Cells Not Reportable 12/20/21 04:54 Ovalocytes Not Reportable 12/20/21 04:54 Helmet Cells Not Reportable 12/20/21 04:54 Odonnell-Dunlevy Bodies Not Reportable 12/20/21 04:54 Crawford Rings Not Reportable 12/20/21 04:54 Malcom Cells Not Reportable 12/20/21 04:54 Bite Cells Not Reportable 12/20/21 04:54 Crenated Cell Not Reportable 12/20/21 04:54 Elliptocytes Not Reportable 12/20/21 04:54 Acanthocytes (Spur) Not Reportable 12/20/21 04:54 Rouleaux Not Reportable 12/20/21 04:54 Hemoglobin C Crystals Not Reportable 12/20/21 04:54 Schistocytes Not Reportable 12/20/21 04:54 Malaria parasites Not Reportable 12/20/21 04:54 Godfrey Bodies Not Reportable 12/20/21 04:54 Hem Pathologist Commnt No 12/20/21 04:54 PT 16.9 Sec. (12.2-14.9) H 01/06/22 04:06 INR 1.23 (0.87-1.13) H 01/06/22 04:06 APTT 29.2 Sec. (24.2-36.6) 11/26/21 05:00 D-Dimer 2655.00 ng/mlDDU (0-234) H 11/11/21 04:28 ABG pH 7.479 pH Units (7.350-7.450) H 12/16/21 20:52 ABG pCO2 37.5 mm Hg 12/16/21 20:52 ABG pO2 79.3 mm Hg (80.0-90.0) L 12/16/21 20:52 ABG HCO3 27.3 mmol/L (20.0-26.0) H 12/16/21 20:52 ABG O2 Saturation 97.0 % (95.0-99.0) 12/16/21 20:52 ABG O2 Content 12.3 (0.0-44) 12/16/21 20:52 ABG Base Excess 3.6 mmol/L (-2.0-3.0) H 12/16/21 20:52 ABG Hemoglobin 9.1 gm/dl (12.0-16.0) L 12/16/21 20:52 ABG Carboxyhemoglobin 1.6 % (0.0-5.0) 12/16/21 20:52 ABG Methemoglobin 0.5 % (0.0-1.5) 12/16/21 20:52 Oxyhemoglobin 94.9 % (95.0-99.0) L 12/16/21 20:52 FiO2 30 % 12/16/21 20:52 Sodium 133 mmol/L (137-145) L 01/10/22 04:00 Potassium 4.0 mmol/L (3.6-5.0) 01/10/22 04:00 Chloride 92.6 mmol/L (98-107) L 01/10/22 04:00 Carbon Dioxide 31 mmol/L (22-30) H 01/10/22 04:00 Anion Gap 13 mmol/L 01/10/22 04:00 BUN 29 mg/dL (7-17) H 01/10/22 04:00 Creatinine 0.5 mg/dL (0.6-1.2) L 01/10/22 04:00 Estimated GFR > 60 ml/min 01/10/22 04:00 BUN/Creatinine Ratio 58 % 01/10/22 04:00 Glucose 115 mg/dL (65-100) H 01/10/22 04:00 POC Glucose 136 mg/dL (70-105) H 01/14/22 05:33 Lactic Acid 3.70 mmol/L (0.7-2.0) H* 11/03/21 22:32 Calcium 8.9 mg/dL (8.4-10.2) 01/10/22 04:00 Phosphorus 3.80 mg/dL (2.5-4.5) 01/05/22 04:30 Magnesium 2.00 mg/dL (1.7-2.3) 01/05/22 04:30 Ferritin 52.6 ng/mL (10.0-200.0) 11/05/21 06:11 Total Bilirubin 0.50 mg/dL (0.1-1.2) 11/17/21 05:56 Direct Bilirubin < 0.2 mg/dL (0-0.2) 11/11/21 04:28 Indirect Bilirubin 0.1 mg/dL 11/11/21 04:28 AST 36 units/L (5-40) 11/17/21 05:56 ALT 47 units/L (7-56) 11/17/21 05:56 Alkaline Phosphatase 107 units/L (35-129) 11/17/21 05:56 Ammonia 42.0 umol/L (25-60) 11/10/21 14:08 Lactate Dehydrogenase 187 units/L (91-180) H 11/05/21 06:11 Troponin T 0.045 ng/mL (0.00-0.029) H 11/29/21 20:15 C-Reactive Protein 22.20 mg/dL (0.00-1.30) H 11/05/21 06:11 NT-Pro-B Natriuret Pep 7895 pg/mL (0-900) H 11/03/21 22:32 Total Protein 5.1 g/dL (6.3-8.2) L 11/17/21 05:56 Albumin 2.2 g/dL (3.9-5) L 11/17/21 05:56 Albumin/Globulin Ratio 0.8 % 11/17/21 05:56 Triglycerides 59 mg/dL (2-149) 11/29/21 20:15 Cholesterol 74 mg/dL (50-199) 11/29/21 20:15 LDL Cholesterol Direct 25 mg/dL (50-130) L 11/29/21 20:15 HDL Cholesterol 41 mg/dL (40-59) 11/29/21 20:15 Cholesterol/HDL Ratio 1.80 % 11/29/21 20:15 Vitamin B12 1823 pg/mL (211-911) H 11/10/21 14:08 TSH 1.510 mlU/mL (0.270-4.200) 11/10/21 14:08 Urine Color Yellow (Yellow) 11/11/21 09:00 Urine Turbidity Slightly-cloudy (Clear) 11/11/21 09:00 Urine pH 5.0 (5.0-7.0) 11/11/21 09:00 Ur Specific [place] 1.009 (1.003-1.030) 11/11/21 09:00 Urine Protein <15 mg/dl mg/dL (Negative) 11/11/21 09:00 Urine Glucose (UA) Neg mg/dL (Negative) 11/11/21 09:00 Urine Ketones Neg mg/dL (Negative) 11/11/21 09:00 Urine Blood Mod (Negative) 11/11/21 09:00 Urine Nitrite Neg (Negative) 11/11/21 09:00 Urine Bilirubin Neg (Negative) 11/11/21 09:00 Urine Urobilinogen < 2.0 mg/dL (<2.0) 11/11/21 09:00 Ur Leukocyte Esterase Neg (Negative) 11/11/21 09:00 Urine WBC (Auto) < 1.0 /HPF (0.0-6.0) 11/11/21 09:00 Urine RBC (Auto) < 1.0 /HPF (0.0-6.0) 11/11/21 09:00 Fluid Type Pleural 01/06/22 13:40 Fluid Color Yellow 01/06/22 13:40 Fluid Appearance Hazy 01/06/22 13:40 Fluid WBC 273 /mm3 01/06/22 13:40 Fluid RBC 45 /mm3 01/06/22 13:40 Fluid Seg Neutrophils 47.0 % 01/06/22 13:40 Fluid Lymphocytes 22.0 % 01/06/22 13:40 Fluid Monocytes 10.0 % 01/06/22 13:40 Fluid Eosinophils 19.0 % 01/06/22 13:40 Fluid Basophils 2.0 % 01/06/22 13:40 Fluid Glucose 96 mg/dL (40-70) H 01/06/22 13:40 Fluid Total Protein < 3.0 (15.0-45.0) L 01/06/22 13:40 Fluid LDH 149 01/06/22 13:40 Vancomycin Trough 13.7 ug/mL (5.0-20.0) 01/08/22 06:33 Random Vancomycin 10.5 ug/mL (0-40.0) 01/04/22 05:00 Coronavirus (PCR) Negative (Negative) 11/10/21 08:30 Blood Type O POSITIVE 12/14/21 10:30 Antibody Screen Negative 12/14/21 10:30 Crossmatch See Detail 12/14/21 10:30 Gamble/IV: Voiding Method External Female Catheter Active Medications - Current Medications Current Medications: Generic Name Dose Route Start Last Admin Trade Name Freq PRN Reason Stop Dose Admin Acetaminophen 650 mg 12/14/21 04:12 01/14/22 01:00 Acetaminophen 325 Mg/10.15 Ml Oral Liqd Unit Dose FEEDTUBE 650 mg Q6H PRN Administration Non Cardiac Pain or Temp>100.5 Hydrocodone Bitart/Acetaminophen 1 each 11/21/21 10:00 01/14/22 09:01 Hydrocodone/Acetaminophen 10-325mg Tab FEEDTUBE 1 each TID YOSSI Administration Alprazolam 0.25 mg 12/30/21 09:00 01/14/22 03:03 Alprazolam 0.25 Mg Tab FEEDTUBE 0.25 mg Q8H PRN Administration Agitation Lipase/Protease/Amylase 1 each 11/08/21 11:09 Lipase 10,500/Protease 25,000/Amylase 43,750 (Units) Dr Lema FEEDTUBE PRN PRN For Clogged Feeding Tube Buspirone HCl 7.5 mg 12/30/21 10:00 01/14/22 09:02 Buspirone 5 Mg Tab FEEDTUBE 7.5 mg BID YOSSI Administration Dextrose 0 ml 11/10/21 10:52 12/30/21 00:48 Dextrose 10% *Hypoglycemia IV 50 ml PRN PRN Administration Hypoglycemia Docusate Sodium 100 mg 12/30/21 10:00 01/14/22 09:02 Docusate Sodium 100 Mg/10 Ml Oral Liqd FEEDTUBE 100 mg BID YOSSI Administration Furosemide 20 mg 01/08/22 10:00 01/14/22 09:02 Furosemide 20 Mg Tab PO 20 mg QDAY YOSSI Administration Gabapentin 100 mg 12/30/21 10:00 01/14/22 09:04 Gabapentin 100 Mg Cap FEEDTUBE 100 mg QDAY YOSSI Administration Hydrophilic Ointment 1 applic 11/06/21 04:02 Lip Therapy Vaseline TP Q2HR PRN Dry Lips Vancomycin HCl 1 gm in 250 mls @ 166.667 mls/hr 01/04/22 10:00 01/14/22 09:03 Vancomycin/Ns 1 Gm/250 Ml IV 01/26/22 11:29 166.667 mls/hr Q48H YOSSI Administration Lansoprazole 30 mg 11/24/21 22:00 01/14/22 09:04 Lansoprazole 30 Mg Solutab FEEDTUBE 30 mg BID YOSSI Administration Levothyroxine Sodium 125 mcg 12/31/21 06:00 01/14/22 06:29 Levothyroxine 125 Mcg Tab FEEDTUBE 125 mcg DAILY@0600 YOSSI Administration Melatonin 5 mg 12/05/21 22:00 01/13/22 21:05 Melatonin 5 Mg Tab PO 5 mg QHS YOSSI Administration Metoclopramide HCl 10 mg 01/11/22 13:25 01/14/22 02:59 Metoclopramide 10 Mg/2 Ml Inj IV 10 mg Q6H PRN Administration Nausea And Vomiting Metoprolol Tartrate 6.25 mg 12/30/21 10:00 01/14/22 09:04 Metoprolol Tartrate 25 Mg Tab FEEDTUBE 6.25 mg BID YOSSI Administration Midodrine 5 mg 12/30/21 09:00 01/14/22 09:09 Midodrine 5 Mg Tab FEEDTUBE 5 mg TID@0800,1200,1600 YOSSI Administration Multi-Ingred Cream/Lotion/Oil/Oint 1 applic 11/06/21 04:02 Mineral Oil/Petrolatum, White Ophth Oint 3.5 Gm OU Q4HR PRN Dry Eye(s) Ondansetron HCl 4 mg 12/05/21 10:00 01/14/22 06:28 Ondansetron 4 Mg/2 Ml Inj IV 4 mg Q8H PRN Administration Nausea And Vomiting Polyethylene Glycol 17 gm 12/30/21 10:00 01/14/22 09:09 Polyethylene Glycol 3350 17 Gm Powder FEEDTUBE Not Given QDAY YOSSI Pravastatin Sodium 20 mg 12/30/21 22:00 01/13/22 21:12 Pravastatin 20 Mg Tab FEEDTUBE 20 mg QHS YOSSI Administration Quetiapine Fumarate 25 mg 12/30/21 10:00 01/14/22 09:04 Quetiapine 25 Mg Tab FEEDTUBE 25 mg QAM YOSSI Administration Quetiapine Fumarate 50 mg 12/30/21 22:00 01/13/22 21:05 Quetiapine 25 Mg Tab FEEDTUBE 50 mg QHS YOSSI Administration Senna 17.6 mg 12/29/21 11:00 01/14/22 09:02 Sennosides Oral Liqd 8.8 Mg/5 Ml Oral Liqd FEEDTUBE 17.6 mg Q12HR YOSSI Administration Simple Syrup 15 ml 11/08/21 11:09 Simple Syrup 15 Ml FEEDTUBE PRN PRN Hypoglycemia Simple Syrup 30 ml 11/08/21 11:09 Simple Syrup 15 Ml FEEDTUBE PRN PRN Hypoglycemia Sodium Bicarbonate 325 mg 11/08/21 11:09 01/09/22 20:25 Sodium Bicarbonate 325 Mg Tab FEEDTUBE 325 mg PRN PRN Administration For Clogged Feeding Tube Sodium Chloride 10 ml 11/04/21 10:00 01/14/22 09:04 Sodium Chloride 0.9% 10 Ml Flush Syringe IV 10 ml BID YOSSI Administration Sodium Chloride 10 ml 11/04/21 02:03 01/09/22 06:35 Sodium Chloride 0.9% 10 Ml Flush Syringe IV 10 ml PRN PRN Administration LINE FLUSH Spironolactone 25 mg 12/30/21 10:00 01/14/22 09:02 Spironolactone 25 Mg Tab FEEDTUBE 25 mg QDAY YOSSI Administration Sucralfate 1 gm 12/30/21 12:00 01/14/22 06:29 Sucralfate 1 Gm/10 Ml Oral Liqd FEEDTUBE 1 gm Q6HR YOSSI Administration Trazodone HCl 50 mg 12/04/21 22:00 01/13/22 21:04 Trazodone 50 Mg Tab PO 50 mg QHS YOSSI Administration Nutrition/Malnutrition Assess - Dietary Evaluation Nutrition/Malnutrition Findings: Nutrition Notes Start: 11/04/21 17:16 Freq: Status: Active Protocol: Document 01/10/22 18:16 ISABELL (Rec: 01/10/22 18:44 ISABELL [id number]) Nutrition Notes Initial or Follow up Reassessment Current Diagnosis Diabetes,Heart Failure, Respiratory Failure Other Pertinent Diagnosis Bacteremia, Pneumonia, Bilateral Pleural Effusion, Agitation/Anxiety. Current Diet TF-Vital AF 1.2 Tamir @ 45 ml/hr (since D 12/22). Labs/Tests 01/10: Na 133, Cl 92.6, CO2 31 , BUN 29, Crea 0.5, Glu 115. Pertinent Medications 01/10: Levothyroxine, others nutritionally unremarkable. Height 5 ft Weight 73 kg [place] Body Weight (kg) 45.45 BMI 31.4 Weight change and time frame 0.3 Kg body weight loss in 1 week reported. Weight Status Obese Subjective/Other Information RD consult for routine F/U on TF tolerance. TF continues as prescribed, well tolerated, according to RN notes. Pt continues on Mechanical Ventilation. Procedure on 01/07: US Toracentesis, TF off on 01/06 at 08:14, TF resumed after procedure. Well tolerated, according to RN notes. Pt still waiting for LTAC/SNF placement, unsuccessfully. Percent of energy/protein needs met: 102% Kcal; 89% AA. Burn Absent Trauma Absent GI Symptoms Other Food Allergy No Skin Integrity/Comment Surgical wounds. Current % PO Other Minimum of two criteria No #1 Nutrition Diagnosis Inadequate oral intake Diagnosis Progress(for reassessment Continues documentation) Is patient on ventilator? Yes Is Patient Ambulatory and/or Out of Bed No REE-([facility]-confined to bed) 1334.892 Kcal/Kg value to use for calculation 17 Approximate Energy Requirements Using 1241 kcal/Kg Calculation Used for Recommendations Kcal/kg Additional Notes Protein: 2 g/Kg IBW; 91 g/day. Fluids: 1 ml/Kcal, or as per MD. Nutrition Intervention Nutrition Support: Continue Vital AF 1.2 Tamir @ 45 ml/hr. Flush: 70 ml water Q 4 hr, or as per MD. Kcal 1,296 Protein (gm) 81 Carbohydrates (gm) 119 Fat (gm) 58 Fluid (mL) 876 Fiber (gm) 6 % RDI: 102% Kcal; 89% AA. Goal #1 Provide at least 75% of energy /protein needs through Enteral Feeding during LOS. Goal #2 Maintain body weight within +/ -3% of admission body weight during LOS. Follow-Up By: 01/16/22 Additional Comments Continue monitoring TF tolerance and BM. Mechanical Ventilation status.
--- NOTE | 2022-01-14 13:52 | Progress Note ---
Assessment and Plan Gram positive Bacteremia (MRSA) Acute respiratory failure with hypoxia, now on MVS Acute microcytic anemia Bilateral pneumonia DVT Left pleural effusion Cardiomyopathy EF 30-35% Moderate pulmonary HTN - CT abd & pelvis show large recurrent R>L pleural effusions - will order right chest tube to keep effusion completely crained over next few days and see if she can be liberated from MVS - continue Lasix 20 mg p.o. daily - follow I's & O's and monitor electrolytes - continue daily SAT and SBT assessment as tolerated - no new issues otherwise, continue care as below; - LTAC evaluation ongoing - continue Seroquel - continue Vancomycin for MRSA bacteremia (6 weeks of therapy recommended) - prn Levophed for target MAP > 65 mmHg - continue to wean supplemental oxygen for target O2 sat's > 90% acutely - VAP bundle addressed - continue lung protective strategies - continue bronchodilators with routine trach care and pulmonary hygiene per RT - wean per pulmonary driven protocols otherwise - avoid nephrotoxins, renally dose all medications - continue accuchecks with glycemic control per SSI (While critically ill target blood glucose of 140-180 mg/dL; avoid hypoglycemia) - sedation prn for target RASS 0 to -1 - antibiotics per ID recommendations - continue to avoid benzodiazepine's, reduce the possibility of delirium - prn analgesia per CPOT score - Maintenance of sleep-wake cycle, avoid delirium - continue enteral nutritional support at goal rate as tolerated - G.I. & VTE prophylaxis - PT/OT/ROM exercises - continue mobility protocols for pressure ulcer prophylaxis - Monitor hemodynamics closely - continue other care per attending / other consultants - discharge planning ongoing concurrently COVID SPECIFIC INTERVENTIONS - COVID-19 PCR negative .... Re-evaluate in am & prn CONDITION: CRITICAL PROGNOSIS: GUARDED CODE STATUS: FULL CODE The high probability of a clinically significant, sudden or life-threatening deterioration of the [respiratory, cardiovascular & neurologic] system(s) required my full and direct attention, intervention and personal management. The aggregate critical care time was [34] minutes without overlap. Time includes spent on; [x] Data Review and interpretation [x] Patient assessment and monitoring of vital signs [x] Documentation [x] Medication orders and management Subjective Date of service: 01/14/22 Principal diagnosis: Septic shock; AHRF; Anemia; Pneumonia; pleural effusion; HFrEF; Pulm HTN Interval history: Patient is seen today for: Septic shock; Acute hypoxemic respiratory failure; Anemia; Bilateral pneumonia; Left pleural effusion; HFrEF 30-35%; Pulm HTN RVSP 49 Seen and examined at bedside; 24hour events reviewed; nursing and respiratory care staff consulted; no adverse overnight events reported to me; resting in bed; on PSV trial earlier but tired out after trip to radiology for CT scan of abd & pelvis; denies N/V/F/C Objective Vital Signs - 12hr 01/14/22 01/14/22 01/14/22 02:00 03:00 04:00 Temperature 97.6 F Pulse Rate 76 80 73 Pulse Rate [ From Monitor] Respiratory 15 19 15 Rate Blood Pressure 161/74 169/83 152/77 O2 Sat by Pulse 93 96 100 Oximetry 01/14/22 01/14/22 01/14/22 05:00 05:05 06:00 Temperature Pulse Rate 73 73 73 Pulse Rate [ From Monitor] Respiratory 11 L 15 Rate Blood Pressure 153/87 153/87 165/84 O2 Sat by Pulse 100 100 97 Oximetry 01/14/22 01/14/22 01/14/22 07:00 08:00 08:05 Temperature 97.8 F Pulse Rate 73 71 72 Pulse Rate [ 68 From Monitor] Respiratory 17 14 Rate Blood Pressure 163/81 151/78 151/78 O2 Sat by Pulse 99 99 100 Oximetry 01/14/22 01/14/22 01/14/22 08:09 09:01 09:02 Temperature Pulse Rate 82 94 H 95 H Pulse Rate [ From Monitor] Respiratory 16 25 H Rate Blood Pressure 151/78 136/77 136/77 O2 Sat by Pulse 98 93 Oximetry 01/14/22 01/14/22 01/14/22 09:04 10:00 11:00 Temperature Pulse Rate 95 H 67 72 Pulse Rate [ From Monitor] Respiratory 23 21 Rate Blood Pressure 136/77 119/52 101/32 O2 Sat by Pulse Oximetry 01/14/22 01/14/22 12:00 13:00 Temperature 97.6 F Pulse Rate 71 60 Pulse Rate [ 64 From Monitor] Respiratory 24 14 Rate Blood Pressure 145/76 129/66 O2 Sat by Pulse 97 98 Oximetry Constitutional: alert, appears uncomfortable, other (trach to MVS, frail elderly woman with mildly increased respiratory effort at rest) Eyes: non-icteric ENT: oropharynx moist, other (+ Midline tracheostomy with minimal secretions) Neck: supple, no lymphadenopathy, no JVD Effort: mildly labored Ascultation: Bilateral: diminished breath sounds, rhonchi Percussion: Bilateral: dull (bases) Cardiovascular: regular rate and rhythm, other (S1,S2) Gastrointestinal: normoactive bowel sounds, soft, non-tender, non-distended (protuberant) Integumentary: normal Extremities: no cyanosis, pink and warm, pulses normal, edema (upper etremities), anasarca Neurologic: non-focal exam (grossly), pupils equal and round, motor strength normal and Psychiatric: mood appropriate, anxious CBC and BMP: 01/15/22 Unknown 01/15/22 Unknown ABG, PT/INR, D-dimer: ABG ABG pH 7.479 pH Units (7.350-7.450) H 12/16/21 20:52 ABG pCO2 37.5 mm Hg 12/16/21 20:52 ABG pO2 79.3 mm Hg (80.0-90.0) L 12/16/21 20:52 ABG O2 Saturation 97.0 % (95.0-99.0) 12/16/21 20:52 PT/INR, D-dimer PT 16.9 Sec. (12.2-14.9) H 01/06/22 04:06 INR 1.23 (0.87-1.13) H 01/06/22 04:06 D-Dimer 2655.00 ng/mlDDU (0-234) H 11/11/21 04:28 Abnormal lab findings: Abnormal Labs 11/03/21 11/03/21 11/03/21 22:32 22:32 22:32 WBC 29.3 H RBC 2.93 L Hgb 6.1 L Hct 21.9 L MCV 75 L MCH 21 L MCHC 28 L RDW 19.7 H Plt Count Seg Neuts % (Manual) 97.0 H Lymphocytes % (Manual) 3.0 L Seg Neutrophils # Man 28.4 H Lymphocytes # (Manual) 0.9 L Monocytes # (Manual) PT 18.6 H INR 1.40 H D-Dimer ABG pH ABG pO2 ABG HCO3 ABG O2 Saturation ABG Base Excess ABG Hemoglobin Oxyhemoglobin Sodium Potassium Chloride Carbon Dioxide 20 L BUN 33 H Creatinine Glucose 119 H POC Glucose Lactic Acid Calcium 8.3 L Phosphorus Magnesium AST ALT Alkaline Phosphatase Lactate Dehydrogenase Troponin T 0.035 H C-Reactive Protein NT-Pro-B Natriuret Pep Total Protein Albumin LDL Cholesterol Direct 34 L Vitamin B12 Fluid Glucose Fluid Total Protein Vancomycin Trough Crossmatch 11/03/21 11/03/21 11/03/21 22:32 22:32 23:57 WBC RBC Hgb Hct MCV MCH MCHC RDW Plt Count Seg Neuts % (Manual) Lymphocytes % (Manual) Seg Neutrophils # Man Lymphocytes # (Manual) Monocytes # (Manual) PT INR D-Dimer ABG pH ABG pO2 ABG HCO3 ABG O2 Saturation ABG Base Excess ABG Hemoglobin Oxyhemoglobin Sodium Potassium Chloride Carbon Dioxide BUN Creatinine Glucose POC Glucose Lactic Acid 3.70 H* Calcium Phosphorus Magnesium AST ALT Alkaline Phosphatase 139 H Lactate Dehydrogenase Troponin T C-Reactive Protein NT-Pro-B Natriuret Pep 7895 H Total Protein Albumin 3.5 L LDL Cholesterol Direct Vitamin B12 Fluid Glucose Fluid Total Protein Vancomycin Trough Crossmatch See Detail 11/04/21 11/04/21 11/05/21 00:59 13:58 00:51 WBC 27.9 H RBC 3.28 L Hgb 7.3 L Hct 25.5 L MCV 78 L MCH 22 L MCHC 29 L RDW 19.1 H Plt Count Seg Neuts % (Manual) 96.0 H Lymphocytes % (Manual) 2.0 L Seg Neutrophils # Man 26.8 H Lymphocytes # (Manual) 0.6 L Monocytes # (Manual) PT INR D-Dimer ABG pH ABG pO2 ABG HCO3 ABG O2 Saturation ABG Base Excess ABG Hemoglobin Oxyhemoglobin Sodium Potassium Chloride Carbon Dioxide BUN Creatinine Glucose POC Glucose Lactic Acid Calcium Phosphorus Magnesium AST ALT Alkaline Phosphatase Lactate Dehydrogenase Troponin T 0.051 H D 0.032 H D C-Reactive Protein NT-Pro-B Natriuret Pep Total Protein Albumin LDL Cholesterol Direct Vitamin B12 Fluid Glucose Fluid Total Protein Vancomycin Trough Crossmatch 11/05/21 11/05/21 11/05/21 06:11 06:11 06:11 WBC 31.8 H RBC 3.57 L Hgb 8.0 L Hct 27.7 L MCV 78 L MCH 22 L MCHC 29 L RDW 19.2 H Plt Count Seg Neuts % (Manual) 91.0 H Lymphocytes % (Manual) 4.5 L Seg Neutrophils # Man 28.9 H Lymphocytes # (Manual) Monocytes # (Manual) 1.1 H PT INR D-Dimer 1494.53 H ABG pH ABG pO2 ABG HCO3 ABG O2 Saturation ABG Base Excess ABG Hemoglobin Oxyhemoglobin Sodium Potassium Chloride Carbon Dioxide 19 L BUN 42 H Creatinine Glucose 115 H POC Glucose Lactic Acid Calcium Phosphorus Magnesium AST 43 H ALT Alkaline Phosphatase Lactate Dehydrogenase 187 H Troponin T C-Reactive Protein 22.20 H NT-Pro-B Natriuret Pep Total Protein 6.0 L Albumin 3.2 L LDL Cholesterol Direct Vitamin B12 Fluid Glucose Fluid Total Protein Vancomycin Trough Crossmatch 11/05/21 11/05/21 11/06/21 06:11 12:15 00:30 WBC RBC Hgb Hct MCV MCH MCHC RDW Plt Count Seg Neuts % (Manual) Lymphocytes % (Manual) Seg Neutrophils # Man Lymphocytes # (Manual) Monocytes # (Manual) PT INR D-Dimer ABG pH ABG pO2 ABG HCO3 ABG O2 Saturation ABG Base Excess ABG Hemoglobin Oxyhemoglobin Sodium Potassium Chloride Carbon Dioxide BUN Creatinine Glucose POC Glucose 113 H 69 L Lactic Acid Calcium Phosphorus Magnesium AST ALT Alkaline Phosphatase Lactate Dehydrogenase Troponin T 0.033 H C-Reactive Protein NT-Pro-B Natriuret Pep Total Protein Albumin LDL Cholesterol Direct Vitamin B12 Fluid Glucose Fluid Total Protein Vancomycin Trough Crossmatch 11/06/21 11/06/21 11/06/21 05:50 15:50 15:50 WBC 25.5 H RBC 3.62 L Hgb 8.0 L Hct 27.5 L MCV 76 L MCH 22 L MCHC 29 L RDW 19.6 H Plt Count Seg Neuts % (Manual) 92.0 H Lymphocytes % (Manual) 5.0 L Seg Neutrophils # Man 23.5 H Lymphocytes # (Manual) Monocytes # (Manual) PT INR D-Dimer ABG pH 7.305 L ABG pO2 ABG HCO3 15.8 L ABG O2 Saturation ABG Base Excess -9.6 L ABG Hemoglobin 8.6 L Oxyhemoglobin 94.6 L Sodium Potassium Chloride 113.9 H Carbon Dioxide 17 L BUN 56 H Creatinine Glucose 114 H POC Glucose Lactic Acid Calcium 7.9 L Phosphorus Magnesium AST 1410 H ALT 934 H Alkaline Phosphatase 142 H Lactate Dehydrogenase Troponin T C-Reactive Protein NT-Pro-B Natriuret Pep Total Protein 5.0 L Albumin 2.6 L LDL Cholesterol Direct Vitamin B12 Fluid Glucose Fluid Total Protein Vancomycin Trough Crossmatch 11/07/21 11/07/21 11/07/21 03:30 04:50 08:07 WBC RBC Hgb Hct MCV MCH MCHC RDW Plt Count Seg Neuts % (Manual) Lymphocytes % (Manual) Seg Neutrophils # Man Lymphocytes # (Manual) Monocytes # (Manual) PT INR D-Dimer ABG pH ABG pO2 296.9 H ABG HCO3 18.1 L ABG O2 Saturation 99.5 H ABG Base Excess -5.9 L ABG Hemoglobin 7.6 L Oxyhemoglobin Sodium Potassium Chloride Carbon Dioxide BUN Creatinine Glucose POC Glucose 106 H 108 H Lactic Acid Calcium Phosphorus Magnesium AST ALT Alkaline Phosphatase Lactate Dehydrogenase Troponin T C-Reactive Protein NT-Pro-B Natriuret Pep Total Protein Albumin LDL Cholesterol Direct Vitamin B12 Fluid Glucose Fluid Total Protein Vancomycin Trough Crossmatch 11/08/21 11/08/21 11/08/21 03:10 18:05 23:43 WBC RBC Hgb Hct MCV MCH MCHC RDW Plt Count Seg Neuts % (Manual) Lymphocytes % (Manual) Seg Neutrophils # Man Lymphocytes # (Manual) Monocytes # (Manual) PT INR D-Dimer ABG pH ABG pO2 127.4 H ABG HCO3 ABG O2 Saturation ABG Base Excess -3.4 L ABG Hemoglobin 7.4 L Oxyhemoglobin Sodium Potassium Chloride Carbon Dioxide BUN Creatinine Glucose POC Glucose 113 H 141 H Lactic Acid Calcium Phosphorus Magnesium AST ALT Alkaline Phosphatase Lactate Dehydrogenase Troponin T C-Reactive Protein NT-Pro-B Natriuret Pep Total Protein Albumin LDL Cholesterol Direct Vitamin B12 Fluid Glucose Fluid Total Protein Vancomycin Trough Crossmatch 11/08/21 11/08/21 11/09/21 Unknown Unknown 02:00 WBC 14.5 H RBC 3.35 L Hgb 7.5 L 8.1 L Hct 25.4 L 27.6 L MCV 76 L 76 L MCH 23 L 22 L MCHC RDW 19.9 H 19.9 H Plt Count Seg Neuts % (Manual) Lymphocytes % (Manual) Seg Neutrophils # Man Lymphocytes # (Manual) Monocytes # (Manual) PT INR D-Dimer ABG pH ABG pO2 ABG HCO3 ABG O2 Saturation ABG Base Excess ABG Hemoglobin Oxyhemoglobin Sodium 154 H D Potassium 3.3 L Chloride 120.7 H Carbon Dioxide 20 L BUN 38 H Creatinine Glucose POC Glucose Lactic Acid Calcium 8.3 L Phosphorus Magnesium AST ALT Alkaline Phosphatase Lactate Dehydrogenase Troponin T C-Reactive Protein NT-Pro-B Natriuret Pep Total Protein Albumin LDL Cholesterol Direct Vitamin B12 Fluid Glucose Fluid Total Protein Vancomycin Trough Crossmatch 11/09/21 11/09/21 11/09/21 02:00 02:31 05:12 WBC RBC Hgb Hct MCV MCH MCHC RDW Plt Count Seg Neuts % (Manual) Lymphocytes % (Manual) Seg Neutrophils # Man Lymphocytes # (Manual) Monocytes # (Manual) PT INR D-Dimer ABG pH 7.479 H ABG pO2 121.3 H ABG HCO3 ABG O2 Saturation ABG Base Excess ABG Hemoglobin 7.3 L Oxyhemoglobin Sodium Potassium Chloride 112.5 H Carbon Dioxide BUN 33 H Creatinine Glucose 161 H POC Glucose 135 H Lactic Acid Calcium Phosphorus Magnesium AST 251 H ALT 481 H Alkaline Phosphatase Lactate Dehydrogenase Troponin T C-Reactive Protein NT-Pro-B Natriuret Pep Total Protein 5.0 L Albumin 2.8 L LDL Cholesterol Direct Vitamin B12 Fluid Glucose Fluid Total Protein Vancomycin Trough Crossmatch 11/09/21 11/09/21 11/09/21 11:33 16:32 23:28 WBC RBC Hgb Hct MCV MCH MCHC RDW Plt Count Seg Neuts % (Manual) Lymphocytes % (Manual) Seg Neutrophils # Man Lymphocytes # (Manual) Monocytes # (Manual) PT INR D-Dimer ABG pH ABG pO2 ABG HCO3 ABG O2 Saturation ABG Base Excess ABG Hemoglobin Oxyhemoglobin Sodium Potassium Chloride Carbon Dioxide BUN Creatinine Glucose POC Glucose 132 H 133 H 143 H Lactic Acid Calcium Phosphorus Magnesium AST ALT Alkaline Phosphatase Lactate Dehydrogenase Troponin T C-Reactive Protein NT-Pro-B Natriuret Pep Total Protein Albumin LDL Cholesterol Direct Vitamin B12 Fluid Glucose Fluid Total Protein Vancomycin Trough Crossmatch 11/10/21 11/10/21 11/10/21 04:00 04:00 05:35 WBC 16.0 H RBC 3.61 L Hgb 8.0 L Hct 27.1 L MCV 75 L MCH 22 L MCHC RDW 20.4 H Plt Count Seg Neuts % (Manual) Lymphocytes % (Manual) Seg Neutrophils # Man Lymphocytes # (Manual) Monocytes # (Manual) PT INR D-Dimer ABG pH ABG pO2 ABG HCO3 ABG O2 Saturation ABG Base Excess ABG Hemoglobin Oxyhemoglobin Sodium 149 H Potassium Chloride 114.1 H Carbon Dioxide BUN 31 H Creatinine Glucose 148 H POC Glucose 132 H Lactic Acid Calcium 8.2 L Phosphorus Magnesium AST ALT Alkaline Phosphatase Lactate Dehydrogenase Troponin T C-Reactive Protein NT-Pro-B Natriuret Pep Total Protein Albumin LDL Cholesterol Direct Vitamin B12 Fluid Glucose Fluid Total Protein Vancomycin Trough Crossmatch 11/10/21 11/10/21 11/10/21 11:31 14:08 15:35 WBC RBC Hgb Hct MCV MCH MCHC RDW Plt Count Seg Neuts % (Manual) Lymphocytes % (Manual) Seg Neutrophils # Man Lymphocytes # (Manual) Monocytes # (Manual) PT INR D-Dimer ABG pH ABG pO2 126.6 H ABG HCO3 ABG O2 Saturation ABG Base Excess ABG Hemoglobin 7.4 L Oxyhemoglobin Sodium Potassium Chloride Carbon Dioxide BUN Creatinine Glucose POC Glucose 147 H Lactic Acid Calcium Phosphorus Magnesium AST ALT Alkaline Phosphatase Lactate Dehydrogenase Troponin T C-Reactive Protein NT-Pro-B Natriuret Pep Total Protein Albumin LDL Cholesterol Direct Vitamin B12 1823 H Fluid Glucose Fluid Total Protein Vancomycin Trough Crossmatch 11/10/21 11/11/21 11/11/21 17:53 00:55 04:28 WBC RBC Hgb Hct MCV MCH MCHC RDW Plt Count Seg Neuts % (Manual) Lymphocytes % (Manual) Seg Neutrophils # Man Lymphocytes # (Manual) Monocytes # (Manual) PT INR D-Dimer ABG pH ABG pO2 ABG HCO3 ABG O2 Saturation ABG Base Excess ABG Hemoglobin Oxyhemoglobin Sodium 149 H Potassium Chloride 112.2 H Carbon Dioxide BUN 34 H Creatinine Glucose 148 H POC Glucose 140 H 145 H Lactic Acid Calcium 7.9 L Phosphorus Magnesium AST 53 H ALT 203 H Alkaline Phosphatase Lactate Dehydrogenase Troponin T C-Reactive Protein NT-Pro-B Natriuret Pep Total Protein 4.9 L Albumin 2.6 L LDL Cholesterol Direct Vitamin B12 Fluid Glucose Fluid Total Protein Vancomycin Trough Crossmatch 11/11/21 11/11/21 11/11/21 04:28 04:28 05:28 WBC 20.9 H RBC 3.47 L Hgb 7.5 L Hct 26.0 L MCV 75 L MCH 22 L MCHC 29 L RDW 21.6 H Plt Count 132 L Seg Neuts % (Manual) Lymphocytes % (Manual) Seg Neutrophils # Man Lymphocytes # (Manual) Monocytes # (Manual) PT INR D-Dimer 2655.00 H ABG pH ABG pO2 ABG HCO3 ABG O2 Saturation ABG Base Excess ABG Hemoglobin Oxyhemoglobin Sodium Potassium Chloride Carbon Dioxide BUN Creatinine Glucose POC Glucose 154 H Lactic Acid Calcium Phosphorus Magnesium AST ALT Alkaline Phosphatase Lactate Dehydrogenase Troponin T C-Reactive Protein NT-Pro-B Natriuret Pep Total Protein Albumin LDL Cholesterol Direct Vitamin B12 Fluid Glucose Fluid Total Protein Vancomycin Trough Crossmatch 11/11/21 11/11/21 11/12/21 12:38 18:13 00:14 WBC RBC Hgb Hct MCV MCH MCHC RDW Plt Count Seg Neuts % (Manual) Lymphocytes % (Manual) Seg Neutrophils # Man Lymphocytes # (Manual) Monocytes # (Manual) PT INR D-Dimer ABG pH ABG pO2 ABG HCO3 ABG O2 Saturation ABG Base Excess ABG Hemoglobin Oxyhemoglobin Sodium Potassium Chloride Carbon Dioxide BUN Creatinine Glucose POC Glucose 137 H 108 H 137 H Lactic Acid Calcium Phosphorus Magnesium AST ALT Alkaline Phosphatase Lactate Dehydrogenase Troponin T C-Reactive Protein NT-Pro-B Natriuret Pep Total Protein Albumin LDL Cholesterol Direct Vitamin B12 Fluid Glucose Fluid Total Protein Vancomycin Trough Crossmatch 11/12/21 11/12/21 11/12/21 05:40 06:24 11:12 WBC RBC Hgb Hct MCV MCH MCHC RDW Plt Count Seg Neuts % (Manual) Lymphocytes % (Manual) Seg Neutrophils # Man Lymphocytes # (Manual) Monocytes # (Manual) PT INR D-Dimer ABG pH 7.586 H ABG pO2 150.6 H ABG HCO3 27.2 H ABG O2 Saturation 99.1 H ABG Base Excess 5.2 H ABG Hemoglobin 7.5 L Oxyhemoglobin Sodium Potassium Chloride Carbon Dioxide BUN Creatinine Glucose POC Glucose 132 H 140 H Lactic Acid Calcium Phosphorus Magnesium AST ALT Alkaline Phosphatase Lactate Dehydrogenase Troponin T C-Reactive Protein NT-Pro-B Natriuret Pep Total Protein Albumin LDL Cholesterol Direct Vitamin B12 Fluid Glucose Fluid Total Protein Vancomycin Trough Crossmatch 11/12/21 11/12/21 11/12/21 14:50 14:50 17:13 WBC 19.8 H RBC 3.27 L Hgb 7.1 L Hct 24.5 L MCV 75 L MCH 22 L MCHC 29 L RDW 22.3 H Plt Count Seg Neuts % (Manual) Lymphocytes % (Manual) Seg Neutrophils # Man Lymphocytes # (Manual) Monocytes # (Manual) PT INR D-Dimer ABG pH ABG pO2 ABG HCO3 ABG O2 Saturation ABG Base Excess ABG Hemoglobin Oxyhemoglobin Sodium 150 H Potassium 3.3 L Chloride 112.0 H Carbon Dioxide BUN 40 H Creatinine Glucose 151 H POC Glucose 121 H Lactic Acid Calcium 7.4 L Phosphorus 1.70 L Magnesium 1.40 L AST ALT Alkaline Phosphatase Lactate Dehydrogenase Troponin T C-Reactive Protein NT-Pro-B Natriuret Pep Total Protein Albumin LDL Cholesterol Direct Vitamin B12 Fluid Glucose Fluid Total Protein Vancomycin Trough Crossmatch 11/12/21 11/13/21 11/13/21 23:19 05:34 06:30 WBC RBC Hgb Hct MCV MCH MCHC RDW Plt Count Seg Neuts % (Manual) Lymphocytes % (Manual) Seg Neutrophils # Man Lymphocytes # (Manual) Monocytes # (Manual) PT INR D-Dimer ABG pH ABG pO2 ABG HCO3 ABG O2 Saturation ABG Base Excess ABG Hemoglobin Oxyhemoglobin Sodium 149 H Potassium Chloride 60.0 L Carbon Dioxide BUN 40 H Creatinine Glucose 146 H POC Glucose 113 H 132 H Lactic Acid Calcium 7.3 L Phosphorus Magnesium 2.40 H AST ALT 72 H Alkaline Phosphatase Lactate Dehydrogenase Troponin T C-Reactive Protein NT-Pro-B Natriuret Pep Total Protein 5.2 L Albumin 2.2 L LDL Cholesterol Direct Vitamin B12 Fluid Glucose Fluid Total Protein Vancomycin Trough Crossmatch 11/13/21 11/13/21 11/13/21 06:30 08:30 11:19 WBC 21.2 H RBC 3.12 L Hgb 6.8 L Hct 23.2 L MCV 74 L MCH 22 L MCHC 29 L RDW 22.2 H Plt Count 135 L Seg Neuts % (Manual) Lymphocytes % (Manual) Seg Neutrophils # Man Lymphocytes # (Manual) Monocytes # (Manual) PT INR D-Dimer ABG pH ABG pO2 ABG HCO3 ABG O2 Saturation ABG Base Excess ABG Hemoglobin Oxyhemoglobin Sodium Potassium Chloride Carbon Dioxide BUN Creatinine Glucose POC Glucose 136 H Lactic Acid Calcium Phosphorus Magnesium AST ALT Alkaline Phosphatase Lactate Dehydrogenase Troponin T C-Reactive Protein NT-Pro-B Natriuret Pep Total Protein Albumin LDL Cholesterol Direct Vitamin B12 Fluid Glucose Fluid Total Protein Vancomycin Trough Crossmatch See Detail 11/13/21 11/14/21 11/14/21 18:21 00:01 04:46 WBC 20.0 H RBC 3.41 L Hgb 7.9 L Hct 26.8 L MCV MCH 23 L MCHC 29 L RDW 24.0 H Plt Count Seg Neuts % (Manual) Lymphocytes % (Manual) Seg Neutrophils # Man Lymphocytes # (Manual) Monocytes # (Manual) PT INR D-Dimer ABG pH ABG pO2 ABG HCO3 ABG O2 Saturation ABG Base Excess ABG Hemoglobin Oxyhemoglobin Sodium Potassium Chloride Carbon Dioxide BUN Creatinine Glucose POC Glucose 149 H 141 H Lactic Acid Calcium Phosphorus Magnesium AST ALT Alkaline Phosphatase Lactate Dehydrogenase Troponin T C-Reactive Protein NT-Pro-B Natriuret Pep Total Protein Albumin LDL Cholesterol Direct Vitamin B12 Fluid Glucose Fluid Total Protein Vancomycin Trough Crossmatch 11/14/21 11/14/21 11/14/21 04:46 05:10 11:10 WBC RBC Hgb Hct MCV MCH MCHC RDW Plt Count Seg Neuts % (Manual) Lymphocytes % (Manual) Seg Neutrophils # Man Lymphocytes # (Manual) Monocytes # (Manual) PT INR D-Dimer ABG pH ABG pO2 ABG HCO3 ABG O2 Saturation ABG Base Excess ABG Hemoglobin Oxyhemoglobin Sodium 148 H Potassium Chloride 113.1 H Carbon Dioxide BUN 43 H Creatinine Glucose 140 H POC Glucose 132 H 133 H Lactic Acid Calcium 7.5 L Phosphorus Magnesium AST ALT Alkaline Phosphatase Lactate Dehydrogenase Troponin T C-Reactive Protein NT-Pro-B Natriuret Pep Total Protein Albumin LDL Cholesterol Direct Vitamin B12 Fluid Glucose Fluid Total Protein Vancomycin Trough Crossmatch 11/14/21 11/14/21 11/14/21 16:14 17:48 23:23 WBC RBC Hgb Hct MCV MCH MCHC RDW Plt Count Seg Neuts % (Manual) Lymphocytes % (Manual) Seg Neutrophils # Man Lymphocytes # (Manual) Monocytes # (Manual) PT INR D-Dimer ABG pH ABG pO2 ABG HCO3 28.0 H ABG O2 Saturation ABG Base Excess 3.1 H ABG Hemoglobin 5.8 L Oxyhemoglobin 94.8 L Sodium Potassium Chloride Carbon Dioxide BUN Creatinine Glucose POC Glucose 130 H 136 H Lactic Acid Calcium Phosphorus Magnesium AST ALT Alkaline Phosphatase Lactate Dehydrogenase Troponin T C-Reactive Protein NT-Pro-B Natriuret Pep Total Protein Albumin LDL Cholesterol Direct Vitamin B12 Fluid Glucose Fluid Total Protein Vancomycin Trough Crossmatch 11/15/21 11/15/21 11/15/21 05:20 05:50 05:50 WBC 19.9 H RBC 3.50 L Hgb 8.2 L Hct 27.9 L MCV MCH 23 L MCHC 29 L RDW 24.9 H Plt Count Seg Neuts % (Manual) Lymphocytes % (Manual) Seg Neutrophils # Man Lymphocytes # (Manual) Monocytes # (Manual) PT INR D-Dimer ABG pH ABG pO2 ABG HCO3 ABG O2 Saturation ABG Base Excess ABG Hemoglobin Oxyhemoglobin Sodium 149 H Potassium Chloride 112.0 H Carbon Dioxide BUN 48 H Creatinine Glucose 152 H POC Glucose 137 H Lactic Acid Calcium 7.9 L Phosphorus Magnesium AST ALT Alkaline Phosphatase Lactate Dehydrogenase Troponin T C-Reactive Protein NT-Pro-B Natriuret Pep Total Protein Albumin LDL Cholesterol Direct Vitamin B12 Fluid Glucose Fluid Total Protein Vancomycin Trough Crossmatch 11/15/21 11/15/21 11/15/21 12:12 17:07 23:24 WBC RBC Hgb Hct MCV MCH MCHC RDW Plt Count Seg Neuts % (Manual) Lymphocytes % (Manual) Seg Neutrophils # Man Lymphocytes # (Manual) Monocytes # (Manual) PT INR D-Dimer ABG pH ABG pO2 ABG HCO3 ABG O2 Saturation ABG Base Excess ABG Hemoglobin Oxyhemoglobin Sodium Potassium Chloride Carbon Dioxide BUN Creatinine Glucose POC Glucose 114 H 135 H 123 H Lactic Acid Calcium Phosphorus Magnesium AST ALT Alkaline Phosphatase Lactate Dehydrogenase Troponin T C-Reactive Protein NT-Pro-B Natriuret Pep Total Protein Albumin LDL Cholesterol Direct Vitamin B12 Fluid Glucose Fluid Total Protein Vancomycin Trough Crossmatch 11/16/21 11/16/21 11/16/21 05:21 10:00 10:00 WBC 21.7 H RBC 2.57 L Hgb 6.0 L Hct 20.2 L D MCV MCH 24 L MCHC RDW 26.3 H Plt Count Seg Neuts % (Manual) Lymphocytes % (Manual) Seg Neutrophils # Man Lymphocytes # (Manual) Monocytes # (Manual) PT INR D-Dimer ABG pH ABG pO2 ABG HCO3 ABG O2 Saturation ABG Base Excess ABG Hemoglobin Oxyhemoglobin Sodium 153 H Potassium Chloride 114.9 H Carbon Dioxide BUN 74 H Creatinine Glucose 155 H POC Glucose 127 H Lactic Acid Calcium 8.1 L Phosphorus Magnesium AST ALT Alkaline Phosphatase Lactate Dehydrogenase Troponin T C-Reactive Protein NT-Pro-B Natriuret Pep Total Protein Albumin LDL Cholesterol Direct Vitamin B12 Fluid Glucose Fluid Total Protein Vancomycin Trough Crossmatch 11/16/21 11/16/21 11/16/21 11:34 14:00 15:25 WBC 17.2 H RBC 2.08 L Hgb 4.7 L* Hct 16.2 L* MCV 78 L MCH 23 L MCHC 29 L RDW 26.0 H Plt Count Seg Neuts % (Manual) 87.0 H Lymphocytes % (Manual) 8.0 L Seg Neutrophils # Man 15.0 H Lymphocytes # (Manual) Monocytes # (Manual) 0.9 H PT INR D-Dimer ABG pH ABG pO2 ABG HCO3 ABG O2 Saturation ABG Base Excess ABG Hemoglobin Oxyhemoglobin Sodium Potassium Chloride Carbon Dioxide BUN Creatinine Glucose POC Glucose 131 H Lactic Acid Calcium Phosphorus Magnesium AST ALT Alkaline Phosphatase Lactate Dehydrogenase Troponin T C-Reactive Protein NT-Pro-B Natriuret Pep Total Protein Albumin LDL Cholesterol Direct Vitamin B12 Fluid Glucose Fluid Total Protein Vancomycin Trough Crossmatch See Detail 11/16/21 11/16/21 11/16/21 15:25 17:21 22:43 WBC RBC Hgb 8.6 L D Hct 27.7 L D MCV MCH MCHC RDW Plt Count Seg Neuts % (Manual) Lymphocytes % (Manual) Seg Neutrophils # Man Lymphocytes # (Manual) Monocytes # (Manual) PT INR D-Dimer ABG pH ABG pO2 ABG HCO3 ABG O2 Saturation ABG Base Excess ABG Hemoglobin Oxyhemoglobin Sodium 148 H Potassium Chloride 113.2 H Carbon Dioxide BUN 84 H Creatinine Glucose 164 H POC Glucose 124 H Lactic Acid Calcium 7.6 L Phosphorus Magnesium AST ALT Alkaline Phosphatase Lactate Dehydrogenase Troponin T C-Reactive Protein NT-Pro-B Natriuret Pep Total Protein Albumin LDL Cholesterol Direct Vitamin B12 Fluid Glucose Fluid Total Protein Vancomycin Trough Crossmatch 11/16/21 11/17/21 11/17/21 23:07 05:33 05:56 WBC 25.1 H RBC 3.47 L Hgb 8.7 L Hct 28.5 L MCV MCH 25 L MCHC RDW 22.3 H Plt Count Seg Neuts % (Manual) Lymphocytes % (Manual) Seg Neutrophils # Man Lymphocytes # (Manual) Monocytes # (Manual) PT INR D-Dimer ABG pH ABG pO2 ABG HCO3 ABG O2 Saturation ABG Base Excess ABG Hemoglobin Oxyhemoglobin Sodium Potassium Chloride Carbon Dioxide BUN Creatinine Glucose POC Glucose 128 H 133 H Lactic Acid Calcium Phosphorus Magnesium AST ALT Alkaline Phosphatase Lactate Dehydrogenase Troponin T C-Reactive Protein NT-Pro-B Natriuret Pep Total Protein Albumin LDL Cholesterol Direct Vitamin B12 Fluid Glucose Fluid Total Protein Vancomycin Trough Crossmatch 11/17/21 11/17/21 11/17/21 05:56 11:00 11:55 WBC RBC Hgb 8.3 L Hct 26.9 L MCV MCH MCHC RDW Plt Count Seg Neuts % (Manual) Lymphocytes % (Manual) Seg Neutrophils # Man Lymphocytes # (Manual) Monocytes # (Manual) PT INR D-Dimer ABG pH ABG pO2 ABG HCO3 ABG O2 Saturation ABG Base Excess ABG Hemoglobin Oxyhemoglobin Sodium 151 H Potassium Chloride 113.6 H Carbon Dioxide BUN 85 H Creatinine Glucose 132 H POC Glucose 121 H Lactic Acid Calcium 7.8 L Phosphorus Magnesium AST ALT Alkaline Phosphatase Lactate Dehydrogenase Troponin T C-Reactive Protein NT-Pro-B Natriuret Pep Total Protein 5.1 L Albumin 2.2 L LDL Cholesterol Direct Vitamin B12 Fluid Glucose Fluid Total Protein Vancomycin Trough Crossmatch 11/17/21 11/17/21 11/18/21 18:04 18:55 00:26 WBC RBC Hgb 7.5 L 7.1 L Hct 24.8 L 23.6 L MCV MCH MCHC RDW Plt Count Seg Neuts % (Manual) Lymphocytes % (Manual) Seg Neutrophils # Man Lymphocytes # (Manual) Monocytes # (Manual) PT INR D-Dimer ABG pH ABG pO2 ABG HCO3 ABG O2 Saturation ABG Base Excess ABG Hemoglobin Oxyhemoglobin Sodium Potassium Chloride Carbon Dioxide BUN Creatinine Glucose POC Glucose 144 H Lactic Acid Calcium Phosphorus Magnesium AST ALT Alkaline Phosphatase Lactate Dehydrogenase Troponin T C-Reactive Protein NT-Pro-B Natriuret Pep Total Protein Albumin LDL Cholesterol Direct Vitamin B12 Fluid Glucose Fluid Total Protein Vancomycin Trough Crossmatch 11/18/21 11/18/21 11/18/21 00:43 05:10 05:10 WBC 12.5 H RBC 2.39 L Hgb 6.1 L Hct 20.2 L MCV MCH 25 L MCHC RDW 23.2 H Plt Count Seg Neuts % (Manual) Lymphocytes % (Manual) Seg Neutrophils # Man Lymphocytes # (Manual) Monocytes # (Manual) PT INR D-Dimer ABG pH ABG pO2 ABG HCO3 ABG O2 Saturation ABG Base Excess ABG Hemoglobin Oxyhemoglobin Sodium 131 L D Potassium 2.9 L* D Chloride 97.8 L Carbon Dioxide BUN 58 H Creatinine Glucose 665 H* POC Glucose 139 H Lactic Acid Calcium 7.0 L Phosphorus 2.20 L D Magnesium 1.50 L AST ALT Alkaline Phosphatase Lactate Dehydrogenase Troponin T C-Reactive Protein NT-Pro-B Natriuret Pep Total Protein Albumin LDL Cholesterol Direct Vitamin B12 Fluid Glucose Fluid Total Protein Vancomycin Trough Crossmatch 11/18/21 11/18/21 11/18/21 05:23 07:10 10:45 WBC RBC Hgb Hct MCV MCH MCHC RDW Plt Count Seg Neuts % (Manual) Lymphocytes % (Manual) Seg Neutrophils # Man Lymphocytes # (Manual) Monocytes # (Manual) PT INR D-Dimer ABG pH ABG pO2 ABG HCO3 ABG O2 Saturation ABG Base Excess ABG Hemoglobin Oxyhemoglobin Sodium 148 H D Potassium 3.1 L Chloride 111.9 H Carbon Dioxide BUN 63 H Creatinine Glucose 141 H POC Glucose 124 H Lactic Acid Calcium 8.1 L D Phosphorus Magnesium AST ALT Alkaline Phosphatase Lactate Dehydrogenase Troponin T C-Reactive Protein NT-Pro-B Natriuret Pep Total Protein Albumin LDL Cholesterol Direct Vitamin B12 Fluid Glucose Fluid Total Protein Vancomycin Trough Crossmatch See Detail 11/18/21 11/19/21 11/19/21 11:57 00:19 04:55 WBC RBC 3.35 L Hgb 9.0 L 8.9 L Hct 28.3 L D 28.1 L MCV MCH 27 L MCHC RDW 20.3 H Plt Count Seg Neuts % (Manual) Lymphocytes % (Manual) Seg Neutrophils # Man Lymphocytes # (Manual) Monocytes # (Manual) PT INR D-Dimer ABG pH ABG pO2 ABG HCO3 ABG O2 Saturation ABG Base Excess ABG Hemoglobin Oxyhemoglobin Sodium Potassium Chloride Carbon Dioxide BUN Creatinine Glucose POC Glucose 119 H Lactic Acid Calcium Phosphorus Magnesium AST ALT Alkaline Phosphatase Lactate Dehydrogenase Troponin T C-Reactive Protein NT-Pro-B Natriuret Pep Total Protein Albumin LDL Cholesterol Direct Vitamin B12 Fluid Glucose Fluid Total Protein Vancomycin Trough Crossmatch 11/19/21 11/19/21 11/20/21 04:55 05:42 00:55 WBC RBC Hgb 9.0 L Hct 28.6 L MCV MCH MCHC RDW Plt Count Seg Neuts % (Manual) Lymphocytes % (Manual) Seg Neutrophils # Man Lymphocytes # (Manual) Monocytes # (Manual) PT INR D-Dimer ABG pH ABG pO2 ABG HCO3 ABG O2 Saturation ABG Base Excess ABG Hemoglobin Oxyhemoglobin Sodium Potassium 3.5 L Chloride 108.6 H Carbon Dioxide BUN 47 H Creatinine Glucose 207 H POC Glucose 63 L Lactic Acid Calcium 7.1 L Phosphorus Magnesium AST ALT Alkaline Phosphatase Lactate Dehydrogenase Troponin T C-Reactive Protein NT-Pro-B Natriuret Pep Total Protein Albumin LDL Cholesterol Direct Vitamin B12 Fluid Glucose Fluid Total Protein Vancomycin Trough Crossmatch 11/20/21 11/20/21 11/20/21 05:40 05:40 Unknown WBC RBC 3.40 L Hgb 9.1 L Hct 28.8 L MCV MCH 27 L MCHC RDW 20.7 H Plt Count Seg Neuts % (Manual) Lymphocytes % (Manual) Seg Neutrophils # Man Lymphocytes # (Manual) Monocytes # (Manual) PT INR D-Dimer ABG pH ABG pO2 ABG HCO3 ABG O2 Saturation ABG Base Excess -2.7 L ABG Hemoglobin 9.5 L Oxyhemoglobin 94.3 L Sodium Potassium 3.5 L Chloride 108.9 H Carbon Dioxide BUN 37 H Creatinine Glucose 117 H POC Glucose Lactic Acid Calcium 7.5 L Phosphorus Magnesium AST ALT Alkaline Phosphatase Lactate Dehydrogenase Troponin T C-Reactive Protein NT-Pro-B Natriuret Pep Total Protein Albumin LDL Cholesterol Direct Vitamin B12 Fluid Glucose Fluid Total Protein Vancomycin Trough Crossmatch 11/21/21 11/21/21 11/21/21 04:30 04:30 16:00 WBC RBC 3.25 L Hgb 8.6 L Hct 28.1 L MCV MCH 26 L MCHC RDW 20.7 H Plt Count Seg Neuts % (Manual) Lymphocytes % (Manual) Seg Neutrophils # Man Lymphocytes # (Manual) Monocytes # (Manual) PT INR D-Dimer ABG pH ABG pO2 114.2 H ABG HCO3 ABG O2 Saturation ABG Base Excess ABG Hemoglobin 9.1 L Oxyhemoglobin Sodium 134 L Potassium Chloride Carbon Dioxide 20 L BUN 34 H Creatinine Glucose POC Glucose Lactic Acid Calcium 7.1 L Phosphorus Magnesium AST ALT Alkaline Phosphatase Lactate Dehydrogenase Troponin T C-Reactive Protein NT-Pro-B Natriuret Pep Total Protein Albumin LDL Cholesterol Direct Vitamin B12 Fluid Glucose Fluid Total Protein Vancomycin Trough Crossmatch 11/22/21 11/22/21 11/22/21 07:07 07:07 23:54 WBC RBC 3.30 L Hgb 9.0 L Hct 28.5 L MCV MCH 27 L MCHC RDW 21.0 H Plt Count Seg Neuts % (Manual) Lymphocytes % (Manual) Seg Neutrophils # Man Lymphocytes # (Manual) Monocytes # (Manual) PT INR D-Dimer ABG pH ABG pO2 ABG HCO3 ABG O2 Saturation ABG Base Excess ABG Hemoglobin Oxyhemoglobin Sodium Potassium Chloride Carbon Dioxide BUN 32 H Creatinine Glucose 106 H POC Glucose 110 H Lactic Acid Calcium 7.5 L Phosphorus Magnesium AST ALT Alkaline Phosphatase Lactate Dehydrogenase Troponin T C-Reactive Protein NT-Pro-B Natriuret Pep Total Protein Albumin LDL Cholesterol Direct Vitamin B12 Fluid Glucose Fluid Total Protein Vancomycin Trough Crossmatch 11/23/21 11/23/21 11/23/21 04:38 04:38 06:01 WBC RBC 3.23 L Hgb 8.8 L Hct 28.0 L MCV MCH 27 L MCHC RDW 21.3 H Plt Count Seg Neuts % (Manual) Lymphocytes % (Manual) Seg Neutrophils # Man Lymphocytes # (Manual) Monocytes # (Manual) PT INR D-Dimer ABG pH ABG pO2 ABG HCO3 ABG O2 Saturation ABG Base Excess ABG Hemoglobin Oxyhemoglobin Sodium 136 L Potassium Chloride Carbon Dioxide 20 L BUN 32 H Creatinine Glucose 109 H POC Glucose 115 H Lactic Acid Calcium 7.7 L Phosphorus Magnesium AST ALT Alkaline Phosphatase Lactate Dehydrogenase Troponin T C-Reactive Protein NT-Pro-B Natriuret Pep Total Protein Albumin LDL Cholesterol Direct Vitamin B12 Fluid Glucose Fluid Total Protein Vancomycin Trough Crossmatch 11/23/21 11/24/21 11/24/21 11:40 00:03 04:13 WBC RBC 3.18 L Hgb 8.5 L Hct 27.5 L MCV MCH 27 L MCHC RDW 21.6 H Plt Count Seg Neuts % (Manual) Lymphocytes % (Manual) Seg Neutrophils # Man Lymphocytes # (Manual) Monocytes # (Manual) PT INR D-Dimer ABG pH ABG pO2 ABG HCO3 ABG O2 Saturation ABG Base Excess ABG Hemoglobin Oxyhemoglobin Sodium Potassium Chloride Carbon Dioxide BUN Creatinine Glucose POC Glucose 117 H 111 H Lactic Acid Calcium Phosphorus Magnesium AST ALT Alkaline Phosphatase Lactate Dehydrogenase Troponin T C-Reactive Protein NT-Pro-B Natriuret Pep Total Protein Albumin LDL Cholesterol Direct Vitamin B12 Fluid Glucose Fluid Total Protein Vancomycin Trough Crossmatch 11/24/21 11/24/21 11/24/21 04:13 05:30 11:10 WBC RBC Hgb Hct MCV MCH MCHC RDW Plt Count Seg Neuts % (Manual) Lymphocytes % (Manual) Seg Neutrophils # Man Lymphocytes # (Manual) Monocytes # (Manual) PT INR D-Dimer ABG pH ABG pO2 ABG HCO3 ABG O2 Saturation ABG Base Excess ABG Hemoglobin Oxyhemoglobin Sodium Potassium Chloride Carbon Dioxide BUN 31 H Creatinine Glucose 101 H POC Glucose 115 H 107 H Lactic Acid Calcium 7.7 L Phosphorus Magnesium AST ALT Alkaline Phosphatase Lactate Dehydrogenase Troponin T C-Reactive Protein NT-Pro-B Natriuret Pep Total Protein Albumin LDL Cholesterol Direct Vitamin B12 Fluid Glucose Fluid Total Protein Vancomycin Trough Crossmatch 11/24/21 11/24/21 11/25/21 16:34 17:57 05:12 WBC RBC 3.11 L Hgb 8.2 L Hct 26.6 L MCV MCH 26 L MCHC RDW 21.3 H Plt Count Seg Neuts % (Manual) Lymphocytes % (Manual) Seg Neutrophils # Man Lymphocytes # (Manual) Monocytes # (Manual) PT INR D-Dimer ABG pH ABG pO2 ABG HCO3 ABG O2 Saturation ABG Base Excess ABG Hemoglobin Oxyhemoglobin Sodium Potassium Chloride Carbon Dioxide BUN Creatinine Glucose POC Glucose 115 H 110 H Lactic Acid Calcium Phosphorus Magnesium AST ALT Alkaline Phosphatase Lactate Dehydrogenase Troponin T C-Reactive Protein NT-Pro-B Natriuret Pep Total Protein Albumin LDL Cholesterol Direct Vitamin B12 Fluid Glucose Fluid Total Protein Vancomycin Trough Crossmatch 11/25/21 11/25/21 11/26/21 05:12 11:20 05:00 WBC RBC 3.30 L Hgb 8.8 L Hct 28.2 L MCV MCH 27 L MCHC RDW 20.7 H Plt Count Seg Neuts % (Manual) Lymphocytes % (Manual) Seg Neutrophils # Man Lymphocytes # (Manual) Monocytes # (Manual) PT INR D-Dimer ABG pH ABG pO2 ABG HCO3 ABG O2 Saturation ABG Base Excess ABG Hemoglobin Oxyhemoglobin Sodium Potassium Chloride Carbon Dioxide BUN 32 H Creatinine Glucose 118 H POC Glucose 118 H Lactic Acid Calcium 8.2 L Phosphorus Magnesium AST ALT Alkaline Phosphatase Lactate Dehydrogenase Troponin T C-Reactive Protein NT-Pro-B Natriuret Pep Total Protein Albumin LDL Cholesterol Direct Vitamin B12 Fluid Glucose Fluid Total Protein Vancomycin Trough Crossmatch 11/26/21 11/26/21 11/26/21 05:00 05:00 05:44 WBC RBC Hgb Hct MCV MCH MCHC RDW Plt Count Seg Neuts % (Manual) Lymphocytes % (Manual) Seg Neutrophils # Man Lymphocytes # (Manual) Monocytes # (Manual) PT 16.9 H INR 1.24 H D-Dimer ABG pH ABG pO2 ABG HCO3 ABG O2 Saturation ABG Base Excess ABG Hemoglobin Oxyhemoglobin Sodium Potassium Chloride Carbon Dioxide BUN 31 H Creatinine Glucose 104 H POC Glucose 110 H Lactic Acid Calcium 7.9 L Phosphorus Magnesium AST ALT Alkaline Phosphatase Lactate Dehydrogenase Troponin T C-Reactive Protein NT-Pro-B Natriuret Pep Total Protein Albumin LDL Cholesterol Direct Vitamin B12 Fluid Glucose Fluid Total Protein Vancomycin Trough Crossmatch 11/26/21 11/27/21 11/27/21 23:55 07:40 07:40 WBC RBC 3.18 L Hgb 8.5 L Hct 27.0 L MCV MCH 27 L MCHC RDW 21.2 H Plt Count Seg Neuts % (Manual) Lymphocytes % (Manual) Seg Neutrophils # Man Lymphocytes # (Manual) Monocytes # (Manual) PT INR D-Dimer ABG pH ABG pO2 ABG HCO3 ABG O2 Saturation ABG Base Excess ABG Hemoglobin Oxyhemoglobin Sodium Potassium Chloride Carbon Dioxide BUN 27 H Creatinine Glucose 112 H POC Glucose 63 L Lactic Acid Calcium 7.6 L Phosphorus Magnesium AST ALT Alkaline Phosphatase Lactate Dehydrogenase Troponin T C-Reactive Protein NT-Pro-B Natriuret Pep Total Protein Albumin LDL Cholesterol Direct Vitamin B12 Fluid Glucose Fluid Total Protein Vancomycin Trough Crossmatch 11/27/21 11/27/21 11/27/21 12:04 13:40 13:40 WBC RBC 3.31 L Hgb 8.7 L Hct 28.0 L MCV MCH 26 L MCHC RDW 20.7 H Plt Count Seg Neuts % (Manual) Lymphocytes % (Manual) Seg Neutrophils # Man Lymphocytes # (Manual) Monocytes # (Manual) PT INR D-Dimer ABG pH ABG pO2 ABG HCO3 ABG O2 Saturation ABG Base Excess ABG Hemoglobin Oxyhemoglobin Sodium 136 L Potassium Chloride Carbon Dioxide BUN 25 H Creatinine Glucose 127 H POC Glucose 109 H Lactic Acid Calcium 7.6 L Phosphorus Magnesium 1.40 L AST ALT Alkaline Phosphatase Lactate Dehydrogenase Troponin T C-Reactive Protein NT-Pro-B Natriuret Pep Total Protein Albumin LDL Cholesterol Direct Vitamin B12 Fluid Glucose Fluid Total Protein Vancomycin Trough Crossmatch 11/27/21 11/27/21 11/28/21 17:44 23:33 12:20 WBC RBC Hgb Hct MCV MCH MCHC RDW Plt Count Seg Neuts % (Manual) Lymphocytes % (Manual) Seg Neutrophils # Man Lymphocytes # (Manual) Monocytes # (Manual) PT INR D-Dimer ABG pH ABG pO2 ABG HCO3 ABG O2 Saturation ABG Base Excess ABG Hemoglobin Oxyhemoglobin Sodium Potassium Chloride Carbon Dioxide BUN Creatinine Glucose POC Glucose 107 H 108 H 114 H Lactic Acid Calcium Phosphorus Magnesium AST ALT Alkaline Phosphatase Lactate Dehydrogenase Troponin T C-Reactive Protein NT-Pro-B Natriuret Pep Total Protein Albumin LDL Cholesterol Direct Vitamin B12 Fluid Glucose Fluid Total Protein Vancomycin Trough Crossmatch 11/29/21 11/29/21 11/29/21 00:09 03:20 03:20 WBC RBC 3.05 L Hgb 8.2 L Hct 25.8 L MCV MCH 27 L MCHC RDW 20.9 H Plt Count Seg Neuts % (Manual) Lymphocytes % (Manual) Seg Neutrophils # Man Lymphocytes # (Manual) Monocytes # (Manual) PT INR D-Dimer ABG pH ABG pO2 ABG HCO3 ABG O2 Saturation ABG Base Excess ABG Hemoglobin Oxyhemoglobin Sodium 133 L Potassium Chloride Carbon Dioxide BUN 24 H Creatinine Glucose 137 H POC Glucose 134 H Lactic Acid Calcium 7.4 L Phosphorus Magnesium AST ALT Alkaline Phosphatase Lactate Dehydrogenase Troponin T C-Reactive Protein NT-Pro-B Natriuret Pep Total Protein Albumin LDL Cholesterol Direct Vitamin B12 Fluid Glucose Fluid Total Protein Vancomycin Trough Crossmatch 11/29/21 11/29/21 11/29/21 05:38 11:39 17:11 WBC RBC Hgb Hct MCV MCH MCHC RDW Plt Count Seg Neuts % (Manual) Lymphocytes % (Manual) Seg Neutrophils # Man Lymphocytes # (Manual) Monocytes # (Manual) PT INR D-Dimer ABG pH ABG pO2 ABG HCO3 ABG O2 Saturation ABG Base Excess ABG Hemoglobin Oxyhemoglobin Sodium Potassium Chloride Carbon Dioxide BUN Creatinine Glucose POC Glucose 117 H 143 H 124 H Lactic Acid Calcium Phosphorus Magnesium AST ALT Alkaline Phosphatase Lactate Dehydrogenase Troponin T C-Reactive Protein NT-Pro-B Natriuret Pep Total Protein Albumin LDL Cholesterol Direct Vitamin B12 Fluid Glucose Fluid Total Protein Vancomycin Trough Crossmatch 11/29/21 11/30/21 11/30/21 20:15 05:40 05:40 WBC 12.6 H RBC 3.41 L Hgb 9.1 L Hct 28.9 L MCV MCH 27 L MCHC RDW 20.4 H Plt Count Seg Neuts % (Manual) Lymphocytes % (Manual) Seg Neutrophils # Man Lymphocytes # (Manual) Monocytes # (Manual) PT INR D-Dimer ABG pH ABG pO2 ABG HCO3 ABG O2 Saturation ABG Base Excess ABG Hemoglobin Oxyhemoglobin Sodium Potassium Chloride Carbon Dioxide BUN 24 H Creatinine Glucose 131 H POC Glucose Lactic Acid Calcium 7.6 L Phosphorus Magnesium AST ALT Alkaline Phosphatase Lactate Dehydrogenase Troponin T 0.045 H C-Reactive Protein NT-Pro-B Natriuret Pep Total Protein Albumin LDL Cholesterol Direct 25 L Vitamin B12 Fluid Glucose Fluid Total Protein Vancomycin Trough Crossmatch 11/30/21 11/30/21 12/01/21 11:29 16:51 05:00 WBC RBC 2.97 L Hgb 8.0 L Hct 25.0 L MCV MCH 27 L MCHC RDW 20.8 H Plt Count Seg Neuts % (Manual) Lymphocytes % (Manual) Seg Neutrophils # Man Lymphocytes # (Manual) Monocytes # (Manual) PT INR D-Dimer ABG pH ABG pO2 ABG HCO3 ABG O2 Saturation ABG Base Excess ABG Hemoglobin Oxyhemoglobin Sodium Potassium Chloride Carbon Dioxide BUN Creatinine Glucose POC Glucose 123 H 114 H Lactic Acid Calcium Phosphorus Magnesium AST ALT Alkaline Phosphatase Lactate Dehydrogenase Troponin T C-Reactive Protein NT-Pro-B Natriuret Pep Total Protein Albumin LDL Cholesterol Direct Vitamin B12 Fluid Glucose Fluid Total Protein Vancomycin Trough Crossmatch 12/01/21 12/01/21 12/01/21 05:00 05:25 11:54 WBC RBC Hgb Hct MCV MCH MCHC RDW Plt Count Seg Neuts % (Manual) Lymphocytes % (Manual) Seg Neutrophils # Man Lymphocytes # (Manual) Monocytes # (Manual) PT INR D-Dimer ABG pH ABG pO2 ABG HCO3 ABG O2 Saturation ABG Base Excess ABG Hemoglobin Oxyhemoglobin Sodium 136 L Potassium Chloride Carbon Dioxide BUN 24 H Creatinine Glucose 117 H POC Glucose 108 H 107 H Lactic Acid Calcium 7.5 L Phosphorus Magnesium 1.60 L AST ALT Alkaline Phosphatase Lactate Dehydrogenase Troponin T C-Reactive Protein NT-Pro-B Natriuret Pep Total Protein Albumin LDL Cholesterol Direct Vitamin B12 Fluid Glucose Fluid Total Protein Vancomycin Trough Crossmatch 12/01/21 12/02/21 12/02/21 17:40 00:07 04:20 WBC RBC 2.92 L Hgb 7.7 L Hct 24.3 L MCV MCH 26 L MCHC RDW 20.5 H Plt Count Seg Neuts % (Manual) Lymphocytes % (Manual) Seg Neutrophils # Man Lymphocytes # (Manual) Monocytes # (Manual) PT INR D-Dimer ABG pH ABG pO2 ABG HCO3 ABG O2 Saturation ABG Base Excess ABG Hemoglobin Oxyhemoglobin Sodium Potassium Chloride Carbon Dioxide BUN Creatinine Glucose POC Glucose 123 H 110 H Lactic Acid Calcium Phosphorus Magnesium AST ALT Alkaline Phosphatase Lactate Dehydrogenase Troponin T C-Reactive Protein NT-Pro-B Natriuret Pep Total Protein Albumin LDL Cholesterol Direct Vitamin B12 Fluid Glucose Fluid Total Protein Vancomycin Trough Crossmatch 12/02/21 12/02/21 12/02/21 04:20 11:17 18:20 WBC RBC Hgb Hct MCV MCH MCHC RDW Plt Count Seg Neuts % (Manual) Lymphocytes % (Manual) Seg Neutrophils # Man Lymphocytes # (Manual) Monocytes # (Manual) PT INR D-Dimer ABG pH ABG pO2 ABG HCO3 ABG O2 Saturation ABG Base Excess ABG Hemoglobin Oxyhemoglobin Sodium 135 L Potassium Chloride Carbon Dioxide BUN 26 H Creatinine Glucose 121 H POC Glucose 117 H 113 H Lactic Acid Calcium 7.4 L Phosphorus Magnesium AST ALT Alkaline Phosphatase Lactate Dehydrogenase Troponin T C-Reactive Protein NT-Pro-B Natriuret Pep Total Protein Albumin LDL Cholesterol Direct Vitamin B12 Fluid Glucose Fluid Total Protein Vancomycin Trough Crossmatch 12/03/21 12/03/21 12/03/21 00:12 04:00 04:00 WBC RBC 2.99 L Hgb 7.8 L Hct 24.6 L MCV MCH 26 L MCHC RDW 20.2 H Plt Count Seg Neuts % (Manual) Lymphocytes % (Manual) Seg Neutrophils # Man Lymphocytes # (Manual) Monocytes # (Manual) PT INR D-Dimer ABG pH ABG pO2 ABG HCO3 ABG O2 Saturation ABG Base Excess ABG Hemoglobin Oxyhemoglobin Sodium 136 L Potassium Chloride Carbon Dioxide BUN 27 H Creatinine Glucose 133 H POC Glucose 121 H Lactic Acid Calcium 7.5 L Phosphorus Magnesium AST ALT Alkaline Phosphatase Lactate Dehydrogenase Troponin T C-Reactive Protein NT-Pro-B Natriuret Pep Total Protein Albumin LDL Cholesterol Direct Vitamin B12 Fluid Glucose Fluid Total Protein Vancomycin Trough Crossmatch 12/03/21 12/03/21 12/03/21 06:30 11:13 16:00 WBC RBC Hgb Hct MCV MCH MCHC RDW Plt Count Seg Neuts % (Manual) Lymphocytes % (Manual) Seg Neutrophils # Man Lymphocytes # (Manual) Monocytes # (Manual) PT INR D-Dimer ABG pH ABG pO2 ABG HCO3 ABG O2 Saturation ABG Base Excess ABG Hemoglobin Oxyhemoglobin Sodium Potassium Chloride Carbon Dioxide BUN Creatinine Glucose POC Glucose 129 H 125 H 125 H Lactic Acid Calcium Phosphorus Magnesium AST ALT Alkaline Phosphatase Lactate Dehydrogenase Troponin T C-Reactive Protein NT-Pro-B Natriuret Pep Total Protein Albumin LDL Cholesterol Direct Vitamin B12 Fluid Glucose Fluid Total Protein Vancomycin Trough Crossmatch 12/03/21 12/04/21 12/04/21 23:32 04:00 05:36 WBC RBC Hgb Hct MCV MCH MCHC RDW Plt Count Seg Neuts % (Manual) Lymphocytes % (Manual) Seg Neutrophils # Man Lymphocytes # (Manual) Monocytes # (Manual) PT INR D-Dimer ABG pH ABG pO2 ABG HCO3 ABG O2 Saturation ABG Base Excess ABG Hemoglobin Oxyhemoglobin Sodium Potassium 3.5 L Chloride Carbon Dioxide BUN 26 H Creatinine 0.5 L Glucose 151 H POC Glucose 133 H 142 H Lactic Acid Calcium 8.3 L Phosphorus Magnesium AST ALT Alkaline Phosphatase Lactate Dehydrogenase Troponin T C-Reactive Protein NT-Pro-B Natriuret Pep Total Protein Albumin LDL Cholesterol Direct Vitamin B12 Fluid Glucose Fluid Total Protein Vancomycin Trough Crossmatch 12/04/21 12/04/21 12/05/21 11:24 15:58 04:36 WBC RBC Hgb Hct MCV MCH MCHC RDW Plt Count Seg Neuts % (Manual) Lymphocytes % (Manual) Seg Neutrophils # Man Lymphocytes # (Manual) Monocytes # (Manual) PT INR D-Dimer ABG pH ABG pO2 ABG HCO3 ABG O2 Saturation ABG Base Excess ABG Hemoglobin Oxyhemoglobin Sodium Potassium Chloride Carbon Dioxide BUN 21 H Creatinine 0.5 L Glucose 119 H POC Glucose 130 H 111 H Lactic Acid Calcium 8.3 L Phosphorus Magnesium AST ALT Alkaline Phosphatase Lactate Dehydrogenase Troponin T C-Reactive Protein NT-Pro-B Natriuret Pep Total Protein Albumin LDL Cholesterol Direct Vitamin B12 Fluid Glucose Fluid Total Protein Vancomycin Trough Crossmatch 12/05/21 12/05/21 12/05/21 05:15 10:40 11:12 WBC RBC 2.98 L Hgb 8.1 L Hct 24.6 L MCV MCH 27 L MCHC RDW 20.8 H Plt Count Seg Neuts % (Manual) Lymphocytes % (Manual) Seg Neutrophils # Man Lymphocytes # (Manual) Monocytes # (Manual) PT INR D-Dimer ABG pH ABG pO2 ABG HCO3 ABG O2 Saturation ABG Base Excess ABG Hemoglobin Oxyhemoglobin Sodium Potassium Chloride Carbon Dioxide BUN Creatinine Glucose POC Glucose 107 H 110 H Lactic Acid Calcium Phosphorus Magnesium AST ALT Alkaline Phosphatase Lactate Dehydrogenase Troponin T C-Reactive Protein NT-Pro-B Natriuret Pep Total Protein Albumin LDL Cholesterol Direct Vitamin B12 Fluid Glucose Fluid Total Protein Vancomycin Trough Crossmatch 12/05/21 12/06/21 12/06/21 23:39 04:25 04:25 WBC RBC 2.95 L Hgb 7.9 L Hct 24.7 L MCV MCH 27 L MCHC RDW 20.9 H Plt Count Seg Neuts % (Manual) Lymphocytes % (Manual) Seg Neutrophils # Man Lymphocytes # (Manual) Monocytes # (Manual) PT INR D-Dimer ABG pH ABG pO2 ABG HCO3 ABG O2 Saturation ABG Base Excess ABG Hemoglobin Oxyhemoglobin Sodium Potassium Chloride Carbon Dioxide BUN 22 H Creatinine 0.5 L Glucose 136 H POC Glucose 118 H Lactic Acid Calcium 8.2 L Phosphorus Magnesium AST ALT Alkaline Phosphatase Lactate Dehydrogenase Troponin T C-Reactive Protein NT-Pro-B Natriuret Pep Total Protein Albumin LDL Cholesterol Direct Vitamin B12 Fluid Glucose Fluid Total Protein Vancomycin Trough Crossmatch 12/06/21 12/06/21 12/07/21 05:28 11:27 04:00 WBC RBC Hgb 7.2 L Hct 21.8 L MCV MCH MCHC RDW Plt Count Seg Neuts % (Manual) Lymphocytes % (Manual) Seg Neutrophils # Man Lymphocytes # (Manual) Monocytes # (Manual) PT INR D-Dimer ABG pH ABG pO2 ABG HCO3 ABG O2 Saturation ABG Base Excess ABG Hemoglobin Oxyhemoglobin Sodium Potassium Chloride Carbon Dioxide BUN Creatinine Glucose POC Glucose 142 H 126 H Lactic Acid Calcium Phosphorus Magnesium AST ALT Alkaline Phosphatase Lactate Dehydrogenase Troponin T C-Reactive Protein NT-Pro-B Natriuret Pep Total Protein Albumin LDL Cholesterol Direct Vitamin B12 Fluid Glucose Fluid Total Protein Vancomycin Trough Crossmatch 12/07/21 12/07/21 12/07/21 04:00 05:30 11:12 WBC RBC Hgb Hct MCV MCH MCHC RDW Plt Count Seg Neuts % (Manual) Lymphocytes % (Manual) Seg Neutrophils # Man Lymphocytes # (Manual) Monocytes # (Manual) PT INR D-Dimer ABG pH ABG pO2 ABG HCO3 ABG O2 Saturation ABG Base Excess ABG Hemoglobin Oxyhemoglobin Sodium Potassium Chloride Carbon Dioxide BUN 22 H Creatinine Glucose 119 H POC Glucose 121 H 124 H Lactic Acid Calcium 8.0 L Phosphorus Magnesium AST ALT Alkaline Phosphatase Lactate Dehydrogenase Troponin T C-Reactive Protein NT-Pro-B Natriuret Pep Total Protein Albumin LDL Cholesterol Direct Vitamin B12 Fluid Glucose Fluid Total Protein Vancomycin Trough Crossmatch 12/08/21 12/08/21 12/08/21 04:00 04:00 05:39 WBC RBC 2.81 L Hgb 7.7 L Hct 23.5 L MCV MCH MCHC RDW 21.2 H Plt Count Seg Neuts % (Manual) Lymphocytes % (Manual) Seg Neutrophils # Man Lymphocytes # (Manual) Monocytes # (Manual) PT INR D-Dimer ABG pH ABG pO2 ABG HCO3 ABG O2 Saturation ABG Base Excess ABG Hemoglobin Oxyhemoglobin Sodium 135 L Potassium Chloride Carbon Dioxide BUN 23 H Creatinine Glucose 109 H POC Glucose 112 H Lactic Acid Calcium Phosphorus Magnesium AST ALT Alkaline Phosphatase Lactate Dehydrogenase Troponin T C-Reactive Protein NT-Pro-B Natriuret Pep Total Protein Albumin LDL Cholesterol Direct Vitamin B12 Fluid Glucose Fluid Total Protein Vancomycin Trough Crossmatch 12/08/21 12/09/21 12/09/21 11:03 04:20 04:20 WBC RBC 2.67 L Hgb 7.6 L Hct 22.1 L MCV MCH MCHC RDW 20.8 H Plt Count Seg Neuts % (Manual) Lymphocytes % (Manual) Seg Neutrophils # Man Lymphocytes # (Manual) Monocytes # (Manual) PT INR D-Dimer ABG pH ABG pO2 ABG HCO3 ABG O2 Saturation ABG Base Excess ABG Hemoglobin Oxyhemoglobin Sodium 135 L Potassium Chloride 97.8 L Carbon Dioxide BUN 26 H Creatinine Glucose 119 H POC Glucose 108 H Lactic Acid Calcium 7.7 L Phosphorus Magnesium AST ALT Alkaline Phosphatase Lactate Dehydrogenase Troponin T C-Reactive Protein NT-Pro-B Natriuret Pep Total Protein Albumin LDL Cholesterol Direct Vitamin B12 Fluid Glucose Fluid Total Protein Vancomycin Trough Crossmatch 12/09/21 12/10/21 12/10/21 11:26 04:33 11:12 WBC RBC Hgb Hct MCV MCH MCHC RDW Plt Count Seg Neuts % (Manual) Lymphocytes % (Manual) Seg Neutrophils # Man Lymphocytes # (Manual) Monocytes # (Manual) PT INR D-Dimer ABG pH ABG pO2 ABG HCO3 ABG O2 Saturation ABG Base Excess ABG Hemoglobin Oxyhemoglobin Sodium 136 L Potassium Chloride Carbon Dioxide BUN 27 H Creatinine Glucose 117 H POC Glucose 110 H 117 H Lactic Acid Calcium 8.2 L Phosphorus Magnesium AST ALT Alkaline Phosphatase Lactate Dehydrogenase Troponin T C-Reactive Protein NT-Pro-B Natriuret Pep Total Protein Albumin LDL Cholesterol Direct Vitamin B12 Fluid Glucose Fluid Total Protein Vancomycin Trough Crossmatch 12/10/21 12/10/21 12/11/21 16:02 23:31 04:35 WBC RBC 2.57 L Hgb 7.0 L Hct 21.4 L MCV MCH 27 L MCHC RDW 21.1 H Plt Count Seg Neuts % (Manual) Lymphocytes % (Manual) Seg Neutrophils # Man Lymphocytes # (Manual) Monocytes # (Manual) PT INR D-Dimer ABG pH ABG pO2 ABG HCO3 ABG O2 Saturation ABG Base Excess ABG Hemoglobin Oxyhemoglobin Sodium Potassium Chloride Carbon Dioxide BUN Creatinine Glucose POC Glucose 137 H 111 H Lactic Acid Calcium Phosphorus Magnesium AST ALT Alkaline Phosphatase Lactate Dehydrogenase Troponin T C-Reactive Protein NT-Pro-B Natriuret Pep Total Protein Albumin LDL Cholesterol Direct Vitamin B12 Fluid Glucose Fluid Total Protein Vancomycin Trough Crossmatch 12/11/21 12/11/21 12/11/21 04:35 12:46 16:07 WBC RBC Hgb Hct MCV MCH MCHC RDW Plt Count Seg Neuts % (Manual) Lymphocytes % (Manual) Seg Neutrophils # Man Lymphocytes # (Manual) Monocytes # (Manual) PT INR D-Dimer ABG pH ABG pO2 ABG HCO3 ABG O2 Saturation ABG Base Excess ABG Hemoglobin Oxyhemoglobin Sodium 136 L Potassium Chloride Carbon Dioxide BUN 27 H Creatinine Glucose 112 H POC Glucose 115 H 111 H Lactic Acid Calcium 7.6 L Phosphorus Magnesium AST ALT Alkaline Phosphatase Lactate Dehydrogenase Troponin T C-Reactive Protein NT-Pro-B Natriuret Pep Total Protein Albumin LDL Cholesterol Direct Vitamin B12 Fluid Glucose Fluid Total Protein Vancomycin Trough Crossmatch 12/11/21 12/12/21 12/12/21 23:42 04:30 04:30 WBC RBC 2.60 L Hgb 7.1 L Hct 21.5 L MCV MCH 27 L MCHC RDW 20.3 H Plt Count Seg Neuts % (Manual) Lymphocytes % (Manual) Seg Neutrophils # Man Lymphocytes # (Manual) Monocytes # (Manual) PT INR D-Dimer ABG pH ABG pO2 ABG HCO3 ABG O2 Saturation ABG Base Excess ABG Hemoglobin Oxyhemoglobin Sodium 135 L Potassium Chloride 97.9 L Carbon Dioxide BUN 26 H Creatinine 0.5 L Glucose 138 H POC Glucose 115 H Lactic Acid Calcium 8.2 L Phosphorus Magnesium AST ALT Alkaline Phosphatase Lactate Dehydrogenase Troponin T C-Reactive Protein NT-Pro-B Natriuret Pep Total Protein Albumin LDL Cholesterol Direct Vitamin B12 Fluid Glucose Fluid Total Protein Vancomycin Trough Crossmatch 12/12/21 12/12/21 12/12/21 04:30 05:10 11:51 WBC RBC Hgb Hct MCV MCH MCHC RDW Plt Count Seg Neuts % (Manual) Lymphocytes % (Manual) Seg Neutrophils # Man Lymphocytes # (Manual) Monocytes # (Manual) PT INR D-Dimer ABG pH ABG pO2 ABG HCO3 ABG O2 Saturation ABG Base Excess ABG Hemoglobin Oxyhemoglobin Sodium Potassium Chloride Carbon Dioxide BUN Creatinine Glucose POC Glucose 119 H 119 H Lactic Acid Calcium Phosphorus Magnesium AST ALT Alkaline Phosphatase Lactate Dehydrogenase Troponin T C-Reactive Protein NT-Pro-B Natriuret Pep Total Protein Albumin LDL Cholesterol Direct Vitamin B12 Fluid Glucose Fluid Total Protein Vancomycin Trough Crossmatch See Detail 12/13/21 12/13/21 12/13/21 00:52 04:00 04:00 WBC RBC 2.73 L Hgb 7.4 L Hct 22.8 L MCV MCH 27 L MCHC RDW 20.5 H Plt Count Seg Neuts % (Manual) Lymphocytes % (Manual) Seg Neutrophils # Man Lymphocytes # (Manual) Monocytes # (Manual) PT INR D-Dimer ABG pH ABG pO2 ABG HCO3 ABG O2 Saturation ABG Base Excess ABG Hemoglobin Oxyhemoglobin Sodium 134 L Potassium Chloride 96.7 L Carbon Dioxide BUN 23 H Creatinine 0.5 L Glucose 131 H POC Glucose 131 H Lactic Acid Calcium 8.1 L Phosphorus Magnesium AST ALT Alkaline Phosphatase Lactate Dehydrogenase Troponin T C-Reactive Protein NT-Pro-B Natriuret Pep Total Protein Albumin LDL Cholesterol Direct Vitamin B12 Fluid Glucose Fluid Total Protein Vancomycin Trough Crossmatch 12/13/21 12/13/21 12/13/21 05:23 12:11 17:18 WBC RBC Hgb Hct MCV MCH MCHC RDW Plt Count Seg Neuts % (Manual) Lymphocytes % (Manual) Seg Neutrophils # Man Lymphocytes # (Manual) Monocytes # (Manual) PT INR D-Dimer ABG pH ABG pO2 ABG HCO3 ABG O2 Saturation ABG Base Excess ABG Hemoglobin Oxyhemoglobin Sodium Potassium Chloride Carbon Dioxide BUN Creatinine Glucose POC Glucose 121 H 143 H 148 H Lactic Acid Calcium Phosphorus Magnesium AST ALT Alkaline Phosphatase Lactate Dehydrogenase Troponin T C-Reactive Protein NT-Pro-B Natriuret Pep Total Protein Albumin LDL Cholesterol Direct Vitamin B12 Fluid Glucose Fluid Total Protein Vancomycin Trough Crossmatch 12/14/21 12/14/21 12/14/21 00:54 04:20 04:20 WBC RBC 2.39 L Hgb 6.5 L Hct 20.3 L MCV MCH 27 L MCHC RDW 20.3 H Plt Count Seg Neuts % (Manual) Lymphocytes % (Manual) Seg Neutrophils # Man Lymphocytes # (Manual) Monocytes # (Manual) PT INR D-Dimer ABG pH ABG pO2 ABG HCO3 ABG O2 Saturation ABG Base Excess ABG Hemoglobin Oxyhemoglobin Sodium 130 L Potassium Chloride 93.5 L Carbon Dioxide BUN 25 H Creatinine Glucose 123 H POC Glucose 123 H Lactic Acid Calcium 8.0 L Phosphorus Magnesium AST ALT Alkaline Phosphatase Lactate Dehydrogenase Troponin T C-Reactive Protein NT-Pro-B Natriuret Pep Total Protein Albumin LDL Cholesterol Direct Vitamin B12 Fluid Glucose Fluid Total Protein Vancomycin Trough Crossmatch 12/14/21 12/14/21 12/14/21 05:06 08:17 10:30 WBC RBC Hgb Hct MCV MCH MCHC RDW Plt Count Seg Neuts % (Manual) Lymphocytes % (Manual) Seg Neutrophils # Man Lymphocytes # (Manual) Monocytes # (Manual) PT INR D-Dimer ABG pH ABG pO2 ABG HCO3 ABG O2 Saturation ABG Base Excess ABG Hemoglobin Oxyhemoglobin Sodium Potassium Chloride Carbon Dioxide BUN Creatinine Glucose POC Glucose 131 H 119 H Lactic Acid Calcium Phosphorus Magnesium AST ALT Alkaline Phosphatase Lactate Dehydrogenase Troponin T C-Reactive Protein NT-Pro-B Natriuret Pep Total Protein Albumin LDL Cholesterol Direct Vitamin B12 Fluid Glucose Fluid Total Protein Vancomycin Trough Crossmatch See Detail 12/14/21 12/14/21 12/14/21 12:15 16:37 23:27 WBC RBC Hgb Hct MCV MCH MCHC RDW Plt Count Seg Neuts % (Manual) Lymphocytes % (Manual) Seg Neutrophils # Man Lymphocytes # (Manual) Monocytes # (Manual) PT INR D-Dimer ABG pH ABG pO2 ABG HCO3 ABG O2 Saturation ABG Base Excess ABG Hemoglobin Oxyhemoglobin Sodium Potassium Chloride Carbon Dioxide BUN Creatinine Glucose POC Glucose 147 H 141 H 130 H Lactic Acid Calcium Phosphorus Magnesium AST ALT Alkaline Phosphatase Lactate Dehydrogenase Troponin T C-Reactive Protein NT-Pro-B Natriuret Pep Total Protein Albumin LDL Cholesterol Direct Vitamin B12 Fluid Glucose Fluid Total Protein Vancomycin Trough Crossmatch 12/15/21 12/15/21 12/15/21 05:00 07:00 07:00 WBC 12.3 H RBC 3.27 L Hgb 8.8 L Hct 27.5 L D MCV MCH 27 L MCHC RDW 19.0 H Plt Count Seg Neuts % (Manual) Lymphocytes % (Manual) Seg Neutrophils # Man Lymphocytes # (Manual) Monocytes # (Manual) PT INR D-Dimer ABG pH ABG pO2 ABG HCO3 ABG O2 Saturation ABG Base Excess ABG Hemoglobin Oxyhemoglobin Sodium 134 L Potassium Chloride 95.7 L Carbon Dioxide BUN 28 H Creatinine Glucose 129 H POC Glucose 129 H Lactic Acid Calcium 8.2 L Phosphorus Magnesium AST ALT Alkaline Phosphatase Lactate Dehydrogenase Troponin T C-Reactive Protein NT-Pro-B Natriuret Pep Total Protein Albumin LDL Cholesterol Direct Vitamin B12 Fluid Glucose Fluid Total Protein Vancomycin Trough Crossmatch 12/15/21 12/15/21 12/15/21 11:18 16:00 23:39 WBC RBC Hgb Hct MCV MCH MCHC RDW Plt Count Seg Neuts % (Manual) Lymphocytes % (Manual) Seg Neutrophils # Man Lymphocytes # (Manual) Monocytes # (Manual) PT INR D-Dimer ABG pH ABG pO2 ABG HCO3 ABG O2 Saturation ABG Base Excess ABG Hemoglobin Oxyhemoglobin Sodium Potassium Chloride Carbon Dioxide BUN Creatinine Glucose POC Glucose 139 H 137 H 146 H Lactic Acid Calcium Phosphorus Magnesium AST ALT Alkaline Phosphatase Lactate Dehydrogenase Troponin T C-Reactive Protein NT-Pro-B Natriuret Pep Total Protein Albumin LDL Cholesterol Direct Vitamin B12 Fluid Glucose Fluid Total Protein Vancomycin Trough Crossmatch 12/16/21 12/16/21 12/16/21 05:24 10:21 10:21 WBC 15.3 H RBC 3.24 L Hgb 8.9 L Hct 27.7 L MCV MCH MCHC RDW 19.0 H Plt Count Seg Neuts % (Manual) Lymphocytes % (Manual) Seg Neutrophils # Man Lymphocytes # (Manual) Monocytes # (Manual) PT INR D-Dimer ABG pH ABG pO2 ABG HCO3 ABG O2 Saturation ABG Base Excess ABG Hemoglobin Oxyhemoglobin Sodium 131 L Potassium 3.5 L Chloride 92.7 L Carbon Dioxide BUN 36 H Creatinine Glucose 160 H POC Glucose 121 H Lactic Acid Calcium Phosphorus Magnesium 1.60 L AST ALT Alkaline Phosphatase Lactate Dehydrogenase Troponin T C-Reactive Protein NT-Pro-B Natriuret Pep Total Protein Albumin LDL Cholesterol Direct Vitamin B12 Fluid Glucose Fluid Total Protein Vancomycin Trough Crossmatch 12/16/21 12/16/21 12/16/21 11:21 18:28 20:52 WBC RBC Hgb Hct MCV MCH MCHC RDW Plt Count Seg Neuts % (Manual) Lymphocytes % (Manual) Seg Neutrophils # Man Lymphocytes # (Manual) Monocytes # (Manual) PT INR D-Dimer ABG pH 7.479 H ABG pO2 79.3 L ABG HCO3 27.3 H ABG O2 Saturation ABG Base Excess 3.6 H ABG Hemoglobin 9.1 L Oxyhemoglobin 94.9 L Sodium Potassium Chloride Carbon Dioxide BUN Creatinine Glucose POC Glucose 153 H 132 H Lactic Acid Calcium Phosphorus Magnesium AST ALT Alkaline Phosphatase Lactate Dehydrogenase Troponin T C-Reactive Protein NT-Pro-B Natriuret Pep Total Protein Albumin LDL Cholesterol Direct Vitamin B12 Fluid Glucose Fluid Total Protein Vancomycin Trough Crossmatch 12/16/21 12/17/21 12/17/21 23:30 04:25 04:25 WBC 12.3 H RBC 2.16 L Hgb 6.0 L Hct 18.1 L* D MCV MCH MCHC RDW 19.4 H Plt Count Seg Neuts % (Manual) Lymphocytes % (Manual) Seg Neutrophils # Man Lymphocytes # (Manual) Monocytes # (Manual) PT INR D-Dimer ABG pH ABG pO2 ABG HCO3 ABG O2 Saturation ABG Base Excess ABG Hemoglobin Oxyhemoglobin Sodium 132 L Potassium 3.2 L Chloride 112.0 H Carbon Dioxide BUN 32 H Creatinine Glucose 122 H POC Glucose 137 H Lactic Acid Calcium 6.8 L D Phosphorus Magnesium AST ALT Alkaline Phosphatase Lactate Dehydrogenase Troponin T C-Reactive Protein NT-Pro-B Natriuret Pep Total Protein Albumin LDL Cholesterol Direct Vitamin B12 Fluid Glucose Fluid Total Protein Vancomycin Trough Crossmatch 12/17/21 12/17/21 12/17/21 05:30 11:49 14:45 WBC RBC Hgb 9.7 L D Hct MCV MCH MCHC RDW Plt Count Seg Neuts % (Manual) Lymphocytes % (Manual) Seg Neutrophils # Man Lymphocytes # (Manual) Monocytes # (Manual) PT INR D-Dimer ABG pH ABG pO2 ABG HCO3 ABG O2 Saturation ABG Base Excess ABG Hemoglobin Oxyhemoglobin Sodium Potassium Chloride Carbon Dioxide BUN Creatinine Glucose POC Glucose 137 H 143 H Lactic Acid Calcium Phosphorus Magnesium AST ALT Alkaline Phosphatase Lactate Dehydrogenase Troponin T C-Reactive Protein NT-Pro-B Natriuret Pep Total Protein Albumin LDL Cholesterol Direct Vitamin B12 Fluid Glucose Fluid Total Protein Vancomycin Trough Crossmatch 12/17/21 12/18/21 12/18/21 17:01 05:04 05:04 WBC 13.8 H RBC 3.44 L Hgb 9.9 L Hct 28.8 L MCV MCH MCHC RDW 18.1 H Plt Count Seg Neuts % (Manual) Lymphocytes % (Manual) Seg Neutrophils # Man Lymphocytes # (Manual) Monocytes # (Manual) PT INR D-Dimer ABG pH ABG pO2 ABG HCO3 ABG O2 Saturation ABG Base Excess ABG Hemoglobin Oxyhemoglobin Sodium 132 L Potassium Chloride 97.4 L Carbon Dioxide BUN 38 H Creatinine Glucose 134 H POC Glucose 132 H Lactic Acid Calcium Phosphorus Magnesium AST ALT Alkaline Phosphatase Lactate Dehydrogenase Troponin T C-Reactive Protein NT-Pro-B Natriuret Pep Total Protein Albumin LDL Cholesterol Direct Vitamin B12 Fluid Glucose Fluid Total Protein Vancomycin Trough Crossmatch 12/18/21 12/18/21 12/18/21 05:28 10:57 16:27 WBC RBC Hgb Hct MCV MCH MCHC RDW Plt Count Seg Neuts % (Manual) Lymphocytes % (Manual) Seg Neutrophils # Man Lymphocytes # (Manual) Monocytes # (Manual) PT INR D-Dimer ABG pH ABG pO2 ABG HCO3 ABG O2 Saturation ABG Base Excess ABG Hemoglobin Oxyhemoglobin Sodium Potassium Chloride Carbon Dioxide BUN Creatinine Glucose POC Glucose 118 H 132 H 130 H Lactic Acid Calcium Phosphorus Magnesium AST ALT Alkaline Phosphatase Lactate Dehydrogenase Troponin T C-Reactive Protein NT-Pro-B Natriuret Pep Total Protein Albumin LDL Cholesterol Direct Vitamin B12 Fluid Glucose Fluid Total Protein Vancomycin Trough Crossmatch 12/19/21 12/19/21 12/19/21 00:02 04:41 04:41 WBC 16.0 H RBC 3.45 L Hgb 9.7 L Hct 29.1 L MCV MCH MCHC RDW 17.8 H Plt Count Seg Neuts % (Manual) Lymphocytes % (Manual) Seg Neutrophils # Man Lymphocytes # (Manual) Monocytes # (Manual) PT INR D-Dimer ABG pH ABG pO2 ABG HCO3 ABG O2 Saturation ABG Base Excess ABG Hemoglobin Oxyhemoglobin Sodium 133 L Potassium Chloride 97.9 L Carbon Dioxide BUN 36 H Creatinine 0.5 L Glucose 126 H POC Glucose 127 H Lactic Acid Calcium 8.3 L Phosphorus Magnesium AST ALT Alkaline Phosphatase Lactate Dehydrogenase Troponin T C-Reactive Protein NT-Pro-B Natriuret Pep Total Protein Albumin LDL Cholesterol Direct Vitamin B12 Fluid Glucose Fluid Total Protein Vancomycin Trough Crossmatch 12/19/21 12/19/21 12/19/21 05:26 12:20 16:43 WBC RBC Hgb Hct MCV MCH MCHC RDW Plt Count Seg Neuts % (Manual) Lymphocytes % (Manual) Seg Neutrophils # Man Lymphocytes # (Manual) Monocytes # (Manual) PT INR D-Dimer ABG pH ABG pO2 ABG HCO3 ABG O2 Saturation ABG Base Excess ABG Hemoglobin Oxyhemoglobin Sodium Potassium Chloride Carbon Dioxide BUN Creatinine Glucose POC Glucose 119 H 145 H 126 H Lactic Acid Calcium Phosphorus Magnesium AST ALT Alkaline Phosphatase Lactate Dehydrogenase Troponin T C-Reactive Protein NT-Pro-B Natriuret Pep Total Protein Albumin LDL Cholesterol Direct Vitamin B12 Fluid Glucose Fluid Total Protein Vancomycin Trough Crossmatch 12/19/21 12/20/21 12/20/21 23:30 04:54 04:54 WBC 12.3 H RBC 3.54 L Hgb 10.0 L Hct 29.5 L MCV MCH MCHC RDW 17.8 H Plt Count Seg Neuts % (Manual) 88.0 H Lymphocytes % (Manual) 6.0 L Seg Neutrophils # Man 10.8 H Lymphocytes # (Manual) 0.7 L Monocytes # (Manual) PT INR D-Dimer ABG pH ABG pO2 ABG HCO3 ABG O2 Saturation ABG Base Excess ABG Hemoglobin Oxyhemoglobin Sodium 131 L Potassium Chloride 96.2 L Carbon Dioxide BUN 36 H Creatinine 0.5 L Glucose 130 H POC Glucose 117 H Lactic Acid Calcium Phosphorus Magnesium AST ALT Alkaline Phosphatase Lactate Dehydrogenase Troponin T C-Reactive Protein NT-Pro-B Natriuret Pep Total Protein Albumin LDL Cholesterol Direct Vitamin B12 Fluid Glucose Fluid Total Protein Vancomycin Trough Crossmatch 12/20/21 12/20/21 12/20/21 05:20 11:51 17:30 WBC RBC Hgb Hct MCV MCH MCHC RDW Plt Count Seg Neuts % (Manual) Lymphocytes % (Manual) Seg Neutrophils # Man Lymphocytes # (Manual) Monocytes # (Manual) PT INR D-Dimer ABG pH ABG pO2 ABG HCO3 ABG O2 Saturation ABG Base Excess ABG Hemoglobin Oxyhemoglobin Sodium Potassium Chloride Carbon Dioxide BUN Creatinine Glucose POC Glucose 126 H 119 H 127 H Lactic Acid Calcium Phosphorus Magnesium AST ALT Alkaline Phosphatase Lactate Dehydrogenase Troponin T C-Reactive Protein NT-Pro-B Natriuret Pep Total Protein Albumin LDL Cholesterol Direct Vitamin B12 Fluid Glucose Fluid Total Protein Vancomycin Trough Crossmatch 12/21/21 12/21/21 12/21/21 00:45 04:21 04:21 WBC RBC 3.47 L Hgb 9.4 L Hct 29.2 L MCV MCH 27 L MCHC RDW 18.1 H Plt Count Seg Neuts % (Manual) Lymphocytes % (Manual) Seg Neutrophils # Man Lymphocytes # (Manual) Monocytes # (Manual) PT INR D-Dimer ABG pH ABG pO2 ABG HCO3 ABG O2 Saturation ABG Base Excess ABG Hemoglobin Oxyhemoglobin Sodium 134 L Potassium Chloride Carbon Dioxide BUN 35 H Creatinine 0.5 L Glucose 122 H POC Glucose 125 H Lactic Acid Calcium 8.2 L Phosphorus Magnesium AST ALT Alkaline Phosphatase Lactate Dehydrogenase Troponin T C-Reactive Protein NT-Pro-B Natriuret Pep Total Protein Albumin LDL Cholesterol Direct Vitamin B12 Fluid Glucose Fluid Total Protein Vancomycin Trough Crossmatch 12/21/21 12/21/21 12/21/21 05:38 11:29 16:16 WBC RBC Hgb Hct MCV MCH MCHC RDW Plt Count Seg Neuts % (Manual) Lymphocytes % (Manual) Seg Neutrophils # Man Lymphocytes # (Manual) Monocytes # (Manual) PT INR D-Dimer ABG pH ABG pO2 ABG HCO3 ABG O2 Saturation ABG Base Excess ABG Hemoglobin Oxyhemoglobin Sodium Potassium Chloride Carbon Dioxide BUN Creatinine Glucose POC Glucose 127 H 121 H 113 H Lactic Acid Calcium Phosphorus Magnesium AST ALT Alkaline Phosphatase Lactate Dehydrogenase Troponin T C-Reactive Protein NT-Pro-B Natriuret Pep Total Protein Albumin LDL Cholesterol Direct Vitamin B12 Fluid Glucose Fluid Total Protein Vancomycin Trough Crossmatch 12/22/21 12/22/21 12/23/21 04:58 04:58 06:40 WBC 11.5 H RBC 3.43 L Hgb 9.8 L Hct 28.7 L MCV MCH MCHC RDW 18.5 H 17.9 H Plt Count Seg Neuts % (Manual) Lymphocytes % (Manual) Seg Neutrophils # Man Lymphocytes # (Manual) Monocytes # (Manual) PT INR D-Dimer ABG pH ABG pO2 ABG HCO3 ABG O2 Saturation ABG Base Excess ABG Hemoglobin Oxyhemoglobin Sodium 130 L Potassium Chloride 97.8 L Carbon Dioxide BUN 31 H Creatinine 0.5 L Glucose 122 H POC Glucose Lactic Acid Calcium 7.9 L Phosphorus Magnesium AST ALT Alkaline Phosphatase Lactate Dehydrogenase Troponin T C-Reactive Protein NT-Pro-B Natriuret Pep Total Protein Albumin LDL Cholesterol Direct Vitamin B12 Fluid Glucose Fluid Total Protein Vancomycin Trough Crossmatch 12/23/21 12/23/21 12/24/21 06:40 23:25 04:24 WBC 11.7 H RBC Hgb 9.8 L Hct MCV MCH 26 L MCHC RDW 18.1 H Plt Count Seg Neuts % (Manual) Lymphocytes % (Manual) Seg Neutrophils # Man Lymphocytes # (Manual) Monocytes # (Manual) PT INR D-Dimer ABG pH ABG pO2 ABG HCO3 ABG O2 Saturation ABG Base Excess ABG Hemoglobin Oxyhemoglobin Sodium 136 L Potassium Chloride Carbon Dioxide BUN 27 H Creatinine 0.4 L Glucose 107 H POC Glucose 110 H Lactic Acid Calcium 8.1 L Phosphorus Magnesium AST ALT Alkaline Phosphatase Lactate Dehydrogenase Troponin T C-Reactive Protein NT-Pro-B Natriuret Pep Total Protein Albumin LDL Cholesterol Direct Vitamin B12 Fluid Glucose Fluid Total Protein Vancomycin Trough Crossmatch 12/24/21 12/24/21 12/24/21 04:24 11:08 15:45 WBC RBC Hgb Hct MCV MCH MCHC RDW Plt Count Seg Neuts % (Manual) Lymphocytes % (Manual) Seg Neutrophils # Man Lymphocytes # (Manual) Monocytes # (Manual) PT INR D-Dimer ABG pH ABG pO2 ABG HCO3 ABG O2 Saturation ABG Base Excess ABG Hemoglobin Oxyhemoglobin Sodium 132 L Potassium Chloride Carbon Dioxide BUN 27 H Creatinine 0.3 L Glucose 108 H POC Glucose 116 H 107 H Lactic Acid Calcium Phosphorus Magnesium AST ALT Alkaline Phosphatase Lactate Dehydrogenase Troponin T C-Reactive Protein NT-Pro-B Natriuret Pep Total Protein Albumin LDL Cholesterol Direct Vitamin B12 Fluid Glucose Fluid Total Protein Vancomycin Trough Crossmatch 12/24/21 12/25/21 12/25/21 23:43 05:29 11:48 WBC RBC Hgb Hct MCV MCH MCHC RDW Plt Count Seg Neuts % (Manual) Lymphocytes % (Manual) Seg Neutrophils # Man Lymphocytes # (Manual) Monocytes # (Manual) PT INR D-Dimer ABG pH ABG pO2 ABG HCO3 ABG O2 Saturation ABG Base Excess ABG Hemoglobin Oxyhemoglobin Sodium Potassium Chloride Carbon Dioxide BUN Creatinine Glucose POC Glucose 123 H 107 H 119 H Lactic Acid Calcium Phosphorus Magnesium AST ALT Alkaline Phosphatase Lactate Dehydrogenase Troponin T C-Reactive Protein NT-Pro-B Natriuret Pep Total Protein Albumin LDL Cholesterol Direct Vitamin B12 Fluid Glucose Fluid Total Protein Vancomycin Trough Crossmatch 12/26/21 12/26/21 12/26/21 00:06 05:56 07:51 WBC 11.4 H RBC 3.40 L Hgb 9.3 L Hct 28.3 L MCV MCH 27 L MCHC RDW 18.2 H Plt Count Seg Neuts % (Manual) Lymphocytes % (Manual) Seg Neutrophils # Man Lymphocytes # (Manual) Monocytes # (Manual) PT INR D-Dimer ABG pH ABG pO2 ABG HCO3 ABG O2 Saturation ABG Base Excess ABG Hemoglobin Oxyhemoglobin Sodium Potassium Chloride Carbon Dioxide BUN Creatinine Glucose POC Glucose 133 H 107 H Lactic Acid Calcium Phosphorus Magnesium AST ALT Alkaline Phosphatase Lactate Dehydrogenase Troponin T C-Reactive Protein NT-Pro-B Natriuret Pep Total Protein Albumin LDL Cholesterol Direct Vitamin B12 Fluid Glucose Fluid Total Protein Vancomycin Trough Crossmatch 12/26/21 12/26/21 12/26/21 07:51 11:43 17:06 WBC RBC Hgb Hct MCV MCH MCHC RDW Plt Count Seg Neuts % (Manual) Lymphocytes % (Manual) Seg Neutrophils # Man Lymphocytes # (Manual) Monocytes # (Manual) PT INR D-Dimer ABG pH ABG pO2 ABG HCO3 ABG O2 Saturation ABG Base Excess ABG Hemoglobin Oxyhemoglobin Sodium 136 L Potassium Chloride Carbon Dioxide BUN 25 H Creatinine 0.3 L Glucose 131 H POC Glucose 119 H 128 H Lactic Acid Calcium Phosphorus Magnesium AST ALT Alkaline Phosphatase Lactate Dehydrogenase Troponin T C-Reactive Protein NT-Pro-B Natriuret Pep Total Protein Albumin LDL Cholesterol Direct Vitamin B12 Fluid Glucose Fluid Total Protein Vancomycin Trough Crossmatch 12/28/21 12/28/21 12/29/21 09:05 09:05 04:40 WBC RBC 3.19 L Hgb 8.9 L Hct 26.4 L MCV MCH 27 L MCHC RDW 18.4 H 17.9 H Plt Count Seg Neuts % (Manual) Lymphocytes % (Manual) Seg Neutrophils # Man Lymphocytes # (Manual) Monocytes # (Manual) PT INR D-Dimer ABG pH ABG pO2 ABG HCO3 ABG O2 Saturation ABG Base Excess ABG Hemoglobin Oxyhemoglobin Sodium 135 L Potassium Chloride 97.8 L Carbon Dioxide BUN 18 H Creatinine 0.3 L Glucose POC Glucose Lactic Acid Calcium Phosphorus Magnesium AST ALT Alkaline Phosphatase Lactate Dehydrogenase Troponin T C-Reactive Protein NT-Pro-B Natriuret Pep Total Protein Albumin LDL Cholesterol Direct Vitamin B12 Fluid Glucose Fluid Total Protein Vancomycin Trough Crossmatch 12/29/21 12/29/21 12/30/21 04:40 12:47 04:05 WBC RBC 3.29 L Hgb 8.7 L Hct 27.6 L MCV MCH 27 L MCHC RDW 17.6 H Plt Count Seg Neuts % (Manual) Lymphocytes % (Manual) Seg Neutrophils # Man Lymphocytes # (Manual) Monocytes # (Manual) PT INR D-Dimer ABG pH ABG pO2 ABG HCO3 ABG O2 Saturation ABG Base Excess ABG Hemoglobin Oxyhemoglobin Sodium 136 L Potassium Chloride Carbon Dioxide BUN Creatinine 0.3 L Glucose POC Glucose 67 L Lactic Acid Calcium 8.3 L Phosphorus Magnesium AST ALT Alkaline Phosphatase Lactate Dehydrogenase Troponin T C-Reactive Protein NT-Pro-B Natriuret Pep Total Protein Albumin LDL Cholesterol Direct Vitamin B12 Fluid Glucose Fluid Total Protein Vancomycin Trough Crossmatch 12/30/21 12/31/21 12/31/21 04:05 00:07 04:00 WBC RBC 3.05 L Hgb 8.5 L Hct 25.5 L MCV MCH MCHC RDW 18.2 H Plt Count Seg Neuts % (Manual) Lymphocytes % (Manual) Seg Neutrophils # Man Lymphocytes # (Manual) Monocytes # (Manual) PT INR D-Dimer ABG pH ABG pO2 ABG HCO3 ABG O2 Saturation ABG Base Excess ABG Hemoglobin Oxyhemoglobin Sodium 136 L Potassium 3.5 L Chloride Carbon Dioxide BUN Creatinine 0.4 L Glucose POC Glucose 139 H Lactic Acid Calcium Phosphorus Magnesium 1.50 L AST ALT Alkaline Phosphatase Lactate Dehydrogenase Troponin T C-Reactive Protein NT-Pro-B Natriuret Pep Total Protein Albumin LDL Cholesterol Direct Vitamin B12 Fluid Glucose Fluid Total Protein Vancomycin Trough Crossmatch 12/31/21 12/31/21 12/31/21 04:00 04:52 11:23 WBC RBC Hgb Hct MCV MCH MCHC RDW Plt Count Seg Neuts % (Manual) Lymphocytes % (Manual) Seg Neutrophils # Man Lymphocytes # (Manual) Monocytes # (Manual) PT INR D-Dimer ABG pH ABG pO2 ABG HCO3 ABG O2 Saturation ABG Base Excess ABG Hemoglobin Oxyhemoglobin Sodium Potassium Chloride Carbon Dioxide BUN 19 H Creatinine 0.4 L Glucose 116 H POC Glucose 121 H 116 H Lactic Acid Calcium Phosphorus Magnesium AST ALT Alkaline Phosphatase Lactate Dehydrogenase Troponin T C-Reactive Protein NT-Pro-B Natriuret Pep Total Protein Albumin LDL Cholesterol Direct Vitamin B12 Fluid Glucose Fluid Total Protein Vancomycin Trough Crossmatch 12/31/21 01/01/22 01/01/22 17:42 04:31 04:31 WBC RBC 2.83 L Hgb 7.7 L Hct 23.2 L MCV MCH 27 L MCHC RDW 18.3 H Plt Count Seg Neuts % (Manual) Lymphocytes % (Manual) Seg Neutrophils # Man Lymphocytes # (Manual) Monocytes # (Manual) PT INR D-Dimer ABG pH ABG pO2 ABG HCO3 ABG O2 Saturation ABG Base Excess ABG Hemoglobin Oxyhemoglobin Sodium 135 L Potassium Chloride 97.7 L Carbon Dioxide BUN 21 H Creatinine 0.5 L Glucose 127 H POC Glucose 107 H Lactic Acid Calcium 8.0 L Phosphorus Magnesium AST ALT Alkaline Phosphatase Lactate Dehydrogenase Troponin T C-Reactive Protein NT-Pro-B Natriuret Pep Total Protein Albumin LDL Cholesterol Direct Vitamin B12 Fluid Glucose Fluid Total Protein Vancomycin Trough Crossmatch 01/01/22 01/01/22 01/01/22 05:24 11:25 18:11 WBC RBC Hgb Hct MCV MCH MCHC RDW Plt Count Seg Neuts % (Manual) Lymphocytes % (Manual) Seg Neutrophils # Man Lymphocytes # (Manual) Monocytes # (Manual) PT INR D-Dimer ABG pH ABG pO2 ABG HCO3 ABG O2 Saturation ABG Base Excess ABG Hemoglobin Oxyhemoglobin Sodium Potassium Chloride Carbon Dioxide BUN Creatinine Glucose POC Glucose 124 H 140 H 144 H Lactic Acid Calcium Phosphorus Magnesium AST ALT Alkaline Phosphatase Lactate Dehydrogenase Troponin T C-Reactive Protein NT-Pro-B Natriuret Pep Total Protein Albumin LDL Cholesterol Direct Vitamin B12 Fluid Glucose Fluid Total Protein Vancomycin Trough Crossmatch 01/01/22 01/02/22 01/02/22 23:26 04:01 04:01 WBC RBC 2.57 L Hgb 7.1 L Hct 21.5 L MCV MCH MCHC RDW 18.1 H Plt Count Seg Neuts % (Manual) Lymphocytes % (Manual) Seg Neutrophils # Man Lymphocytes # (Manual) Monocytes # (Manual) PT INR D-Dimer ABG pH ABG pO2 ABG HCO3 ABG O2 Saturation ABG Base Excess ABG Hemoglobin Oxyhemoglobin Sodium 131 L Potassium 3.5 L Chloride 94.8 L Carbon Dioxide BUN 27 H Creatinine Glucose 121 H POC Glucose 121 H Lactic Acid Calcium Phosphorus Magnesium AST ALT Alkaline Phosphatase Lactate Dehydrogenase Troponin T C-Reactive Protein NT-Pro-B Natriuret Pep Total Protein Albumin LDL Cholesterol Direct Vitamin B12 Fluid Glucose Fluid Total Protein Vancomycin Trough Crossmatch 01/02/22 01/02/22 01/02/22 05:30 11:10 16:08 WBC RBC Hgb Hct MCV MCH MCHC RDW Plt Count Seg Neuts % (Manual) Lymphocytes % (Manual) Seg Neutrophils # Man Lymphocytes # (Manual) Monocytes # (Manual) PT INR D-Dimer ABG pH ABG pO2 ABG HCO3 ABG O2 Saturation ABG Base Excess ABG Hemoglobin Oxyhemoglobin Sodium Potassium Chloride Carbon Dioxide BUN Creatinine Glucose POC Glucose 124 H 117 H 130 H Lactic Acid Calcium Phosphorus Magnesium AST ALT Alkaline Phosphatase Lactate Dehydrogenase Troponin T C-Reactive Protein NT-Pro-B Natriuret Pep Total Protein Albumin LDL Cholesterol Direct Vitamin B12 Fluid Glucose Fluid Total Protein Vancomycin Trough Crossmatch 01/02/22 01/02/22 01/03/22 17:30 23:26 04:53 WBC RBC 2.82 L Hgb 7.7 L Hct 23.4 L MCV MCH 27 L MCHC RDW 18.0 H Plt Count Seg Neuts % (Manual) Lymphocytes % (Manual) Seg Neutrophils # Man Lymphocytes # (Manual) Monocytes # (Manual) PT INR D-Dimer ABG pH ABG pO2 ABG HCO3 ABG O2 Saturation ABG Base Excess ABG Hemoglobin Oxyhemoglobin Sodium Potassium Chloride Carbon Dioxide BUN Creatinine Glucose POC Glucose 114 H Lactic Acid Calcium Phosphorus Magnesium AST ALT Alkaline Phosphatase Lactate Dehydrogenase Troponin T C-Reactive Protein NT-Pro-B Natriuret Pep Total Protein Albumin LDL Cholesterol Direct Vitamin B12 Fluid Glucose Fluid Total Protein Vancomycin Trough 22.8 H Crossmatch 01/03/22 01/03/22 01/03/22 04:53 06:23 17:35 WBC RBC Hgb Hct MCV MCH MCHC RDW Plt Count Seg Neuts % (Manual) Lymphocytes % (Manual) Seg Neutrophils # Man Lymphocytes # (Manual) Monocytes # (Manual) PT INR D-Dimer ABG pH ABG pO2 ABG HCO3 ABG O2 Saturation ABG Base Excess ABG Hemoglobin Oxyhemoglobin Sodium 133 L Potassium Chloride 96.2 L Carbon Dioxide BUN 30 H Creatinine Glucose 107 H POC Glucose 122 H 107 H Lactic Acid Calcium Phosphorus Magnesium AST ALT Alkaline Phosphatase Lactate Dehydrogenase Troponin T C-Reactive Protein NT-Pro-B Natriuret Pep Total Protein Albumin LDL Cholesterol Direct Vitamin B12 Fluid Glucose Fluid Total Protein Vancomycin Trough Crossmatch 01/04/22 01/04/22 01/04/22 04:00 12:32 16:45 WBC RBC Hgb Hct MCV MCH MCHC RDW Plt Count Seg Neuts % (Manual) Lymphocytes % (Manual) Seg Neutrophils # Man Lymphocytes # (Manual) Monocytes # (Manual) PT INR D-Dimer ABG pH ABG pO2 ABG HCO3 ABG O2 Saturation ABG Base Excess ABG Hemoglobin Oxyhemoglobin Sodium 132 L Potassium Chloride 92.8 L Carbon Dioxide BUN 30 H Creatinine Glucose 115 H POC Glucose 111 H 111 H Lactic Acid Calcium Phosphorus Magnesium 1.60 L AST ALT Alkaline Phosphatase Lactate Dehydrogenase Troponin T C-Reactive Protein NT-Pro-B Natriuret Pep Total Protein Albumin LDL Cholesterol Direct Vitamin B12 Fluid Glucose Fluid Total Protein Vancomycin Trough Crossmatch 01/05/22 01/05/22 01/05/22 04:30 04:30 17:04 WBC RBC 3.11 L Hgb 8.4 L Hct 25.5 L MCV MCH 27 L MCHC RDW 17.6 H Plt Count Seg Neuts % (Manual) Lymphocytes % (Manual) Seg Neutrophils # Man Lymphocytes # (Manual) Monocytes # (Manual) PT INR D-Dimer ABG pH ABG pO2 ABG HCO3 ABG O2 Saturation ABG Base Excess ABG Hemoglobin Oxyhemoglobin Sodium 135 L Potassium Chloride 93.6 L Carbon Dioxide BUN 29 H Creatinine Glucose POC Glucose 67 L Lactic Acid Calcium Phosphorus Magnesium AST ALT Alkaline Phosphatase Lactate Dehydrogenase Troponin T C-Reactive Protein NT-Pro-B Natriuret Pep Total Protein Albumin LDL Cholesterol Direct Vitamin B12 Fluid Glucose Fluid Total Protein Vancomycin Trough Crossmatch 01/05/22 01/06/22 01/06/22 23:27 04:06 04:06 WBC RBC 2.89 L Hgb 7.7 L Hct 23.8 L MCV MCH 27 L MCHC RDW 18.0 H Plt Count Seg Neuts % (Manual) Lymphocytes % (Manual) Seg Neutrophils # Man Lymphocytes # (Manual) Monocytes # (Manual) PT 16.9 H INR 1.23 H D-Dimer ABG pH ABG pO2 ABG HCO3 ABG O2 Saturation ABG Base Excess ABG Hemoglobin Oxyhemoglobin Sodium Potassium Chloride Carbon Dioxide BUN Creatinine Glucose POC Glucose 110 H Lactic Acid Calcium Phosphorus Magnesium AST ALT Alkaline Phosphatase Lactate Dehydrogenase Troponin T C-Reactive Protein NT-Pro-B Natriuret Pep Total Protein Albumin LDL Cholesterol Direct Vitamin B12 Fluid Glucose Fluid Total Protein Vancomycin Trough Crossmatch 01/06/22 01/06/22 01/06/22 04:06 13:40 23:41 WBC RBC Hgb Hct MCV MCH MCHC RDW Plt Count Seg Neuts % (Manual) Lymphocytes % (Manual) Seg Neutrophils # Man Lymphocytes # (Manual) Monocytes # (Manual) PT INR D-Dimer ABG pH ABG pO2 ABG HCO3 ABG O2 Saturation ABG Base Excess ABG Hemoglobin Oxyhemoglobin Sodium 132 L Potassium Chloride 92.3 L Carbon Dioxide BUN 26 H Creatinine Glucose 111 H POC Glucose 120 H Lactic Acid Calcium Phosphorus Magnesium AST ALT Alkaline Phosphatase Lactate Dehydrogenase Troponin T C-Reactive Protein NT-Pro-B Natriuret Pep Total Protein Albumin LDL Cholesterol Direct Vitamin B12 Fluid Glucose 96 H Fluid Total Protein < 3.0 L Vancomycin Trough Crossmatch 01/07/22 01/07/22 01/07/22 05:20 11:30 17:00 WBC RBC Hgb Hct MCV MCH MCHC RDW Plt Count Seg Neuts % (Manual) Lymphocytes % (Manual) Seg Neutrophils # Man Lymphocytes # (Manual) Monocytes # (Manual) PT INR D-Dimer ABG pH ABG pO2 ABG HCO3 ABG O2 Saturation ABG Base Excess ABG Hemoglobin Oxyhemoglobin Sodium Potassium Chloride Carbon Dioxide BUN Creatinine Glucose POC Glucose 111 H 113 H 121 H Lactic Acid Calcium Phosphorus Magnesium AST ALT Alkaline Phosphatase Lactate Dehydrogenase Troponin T C-Reactive Protein NT-Pro-B Natriuret Pep Total Protein Albumin LDL Cholesterol Direct Vitamin B12 Fluid Glucose Fluid Total Protein Vancomycin Trough Crossmatch 01/07/22 01/08/22 01/08/22 23:41 11:26 16:23 WBC RBC Hgb Hct MCV MCH MCHC RDW Plt Count Seg Neuts % (Manual) Lymphocytes % (Manual) Seg Neutrophils # Man Lymphocytes # (Manual) Monocytes # (Manual) PT INR D-Dimer ABG pH ABG pO2 ABG HCO3 ABG O2 Saturation ABG Base Excess ABG Hemoglobin Oxyhemoglobin Sodium Potassium Chloride Carbon Dioxide BUN Creatinine Glucose POC Glucose 110 H 129 H 118 H Lactic Acid Calcium Phosphorus Magnesium AST ALT Alkaline Phosphatase Lactate Dehydrogenase Troponin T C-Reactive Protein NT-Pro-B Natriuret Pep Total Protein Albumin LDL Cholesterol Direct Vitamin B12 Fluid Glucose Fluid Total Protein Vancomycin Trough Crossmatch 01/09/22 01/10/22 01/10/22 18:13 00:27 04:00 WBC RBC Hgb Hct MCV MCH MCHC RDW Plt Count Seg Neuts % (Manual) Lymphocytes % (Manual) Seg Neutrophils # Man Lymphocytes # (Manual) Monocytes # (Manual) PT INR D-Dimer ABG pH ABG pO2 ABG HCO3 ABG O2 Saturation ABG Base Excess ABG Hemoglobin Oxyhemoglobin Sodium 133 L Potassium Chloride 92.6 L Carbon Dioxide 31 H BUN 29 H Creatinine 0.5 L Glucose 115 H POC Glucose 118 H 111 H Lactic Acid Calcium Phosphorus Magnesium AST ALT Alkaline Phosphatase Lactate Dehydrogenase Troponin T C-Reactive Protein NT-Pro-B Natriuret Pep Total Protein Albumin LDL Cholesterol Direct Vitamin B12 Fluid Glucose Fluid Total Protein Vancomycin Trough Crossmatch 01/10/22 01/11/22 01/11/22 05:47 05:10 11:14 WBC RBC Hgb Hct MCV MCH MCHC RDW Plt Count Seg Neuts % (Manual) Lymphocytes % (Manual) Seg Neutrophils # Man Lymphocytes # (Manual) Monocytes # (Manual) PT INR D-Dimer ABG pH ABG pO2 ABG HCO3 ABG O2 Saturation ABG Base Excess ABG Hemoglobin Oxyhemoglobin Sodium Potassium Chloride Carbon Dioxide BUN Creatinine Glucose POC Glucose 106 H 118 H 136 H Lactic Acid Calcium Phosphorus Magnesium AST ALT Alkaline Phosphatase Lactate Dehydrogenase Troponin T C-Reactive Protein NT-Pro-B Natriuret Pep Total Protein Albumin LDL Cholesterol Direct Vitamin B12 Fluid Glucose Fluid Total Protein Vancomycin Trough Crossmatch 01/11/22 01/11/22 01/12/22 17:14 23:52 05:39 WBC RBC Hgb Hct MCV MCH MCHC RDW Plt Count Seg Neuts % (Manual) Lymphocytes % (Manual) Seg Neutrophils # Man Lymphocytes # (Manual) Monocytes # (Manual) PT INR D-Dimer ABG pH ABG pO2 ABG HCO3 ABG O2 Saturation ABG Base Excess ABG Hemoglobin Oxyhemoglobin Sodium Potassium Chloride Carbon Dioxide BUN Creatinine Glucose POC Glucose 117 H 110 H 110 H Lactic Acid Calcium Phosphorus Magnesium AST ALT Alkaline Phosphatase Lactate Dehydrogenase Troponin T C-Reactive Protein NT-Pro-B Natriuret Pep Total Protein Albumin LDL Cholesterol Direct Vitamin B12 Fluid Glucose Fluid Total Protein Vancomycin Trough Crossmatch 01/13/22 01/13/22 01/14/22 11:15 17:21 05:33 WBC RBC Hgb Hct MCV MCH MCHC RDW Plt Count Seg Neuts % (Manual) Lymphocytes % (Manual) Seg Neutrophils # Man Lymphocytes # (Manual) Monocytes # (Manual) PT INR D-Dimer ABG pH ABG pO2 ABG HCO3 ABG O2 Saturation ABG Base Excess ABG Hemoglobin Oxyhemoglobin Sodium Potassium Chloride Carbon Dioxide BUN Creatinine Glucose POC Glucose 113 H 121 H 136 H Lactic Acid Calcium Phosphorus Magnesium AST ALT Alkaline Phosphatase Lactate Dehydrogenase Troponin T C-Reactive Protein NT-Pro-B Natriuret Pep Total Protein Albumin LDL Cholesterol Direct Vitamin B12 Fluid Glucose Fluid Total Protein Vancomycin Trough Crossmatch Allied health notes reviewed: RT
--- NOTE | 2022-01-14 14:13 | Cat Scan Report ---
CT ABDOMEN AND PELVIS WITHOUT CONTRAST INDICATION / CLINICAL INFORMATION: abdominal wall swelling GASTROGRAFFIN GIVEN THROUGH PEG TUBE BY BRIAN SPAULDING. TECHNIQUE: Axial CT images were obtained through the abdomen and pelvis without IV contrast. All CT scans at this location are performed using CT dose reduction for ALARA by means of automated exposure control. COMPARISON: CT abdomen and pelvis 12/28/2021. FINDINGS: LOWER CHEST: No large effusions with associated atelectasis remain. LIVER: No significant abnormality. GALLBLADDER: Previously seen distention has diminished. BILE DUCTS: No significant abnormality. PANCREAS: No significant abnormality. SPLEEN: No significant abnormality. ADRENALS: No significant abnormality. RIGHT KIDNEY / URETER: No significant abnormality. LEFT KIDNEY / URETER: No significant abnormality. STOMACH / SMALL BOWEL: Contrast has been instilled in the stomach through a PEG tube. The stomach is distended. Contrast has emptied into small bowel. No extravasation. COLON: No significant abnormality. APPENDIX: Nonvisualized. PERITONEUM: Scattered ascites remains with mild change in distribution. No free air. No fluid collect ion. LYMPH NODES: No significant adenopathy. VASCULAR STRUCTURES: No significant abnormality. URINARY BLADDER: No significant abnormality. REPRODUCTIVE ORGANS: No significant abnormality. ADDITIONAL FINDINGS: Soft tissue anasarca persists. SKELETAL SYSTEM: Hip prostheses an old pelvic fractures remain. IMPRESSION: 1. Persistent pleural fluid with volume loss, ascites and soft tissue anasarca. 2. Contrast has been instilled in the stomach. Stomach is mildly distended, but not thickened and emp ties. No extravasation. Signer Name: Russel Fishman MD Signed: 01/14/2022 2:09 PM Workstation Name: [email or web address]
[2022-01-14] MEDS: traZODone 50 MG TAB PO SCH (21:14)
[2022-01-14] MEDS: PRAVASTATIN 20 MG TAB FEEDTUBE SCH (21:14)
[2022-01-14] MEDS: MELATONIN 5 MG TAB PO SCH (21:14)
[2022-01-15] MEDS: QUEtiapine 25 MG TAB FEEDTUBE SCH ×3 (00:17→21:08)
[2022-01-15] MEDS: SUCRALFATE 1 GM/10 ML ORAL LIQD FEEDTUBE SCH ×5 (00:22→23:59)
[2022-01-15] MEDS: LEVOTHYROXINE 125 MCG TAB FEEDTUBE SCH (05:04)
[2022-01-15] MEDS: DOCUSATE SODIUM 100 MG/10 ML ORAL LIQD FEEDTUBE SCH ×2 (09:50→21:08)
[2022-01-15] MEDS: SPIRONOLACTONE 25 MG TAB FEEDTUBE SCH (09:50)
[2022-01-15] MEDS: METOPROLOL TARTRATE 25 MG TAB FEEDTUBE SCH ×2 (09:51→22:58)
[2022-01-15] MEDS: FUROSEMIDE 20 MG TAB PO SCH (09:51)
[2022-01-15] MEDS: MIDODRINE 5 MG TAB FEEDTUBE SCH ×3 (09:51→16:37)
[2022-01-15] MEDS: busPIRone 5 MG TAB FEEDTUBE SCH ×2 (09:51→21:08)
[2022-01-15] MEDS: HYDROcodone/ACETAMINOPHEN 10-325MG TAB FEEDTUBE SCH ×3 (09:52→21:08)
[2022-01-15] MEDS: LANSOPRAZOLE 30 MG SOLUTAB FEEDTUBE SCH ×2 (09:52→21:10)
[2022-01-15] MEDS: GABAPENTIN 100 MG CAP FEEDTUBE SCH (09:52)
[2022-01-15] MEDS: POLYETHYLENE GLYCOL 3350 17 GM POWDER FEEDTUBE SCH (09:53)
[2022-01-15 10:47] LABS: Basophils # (Auto) 0.1 K/mm3 (0.0-0.1); Basophils % (Auto) 0.5 % (0.0-1.8); Eosinophils # (Auto) 0.4 K/mm3 (0.0-0.4); Eosinophils % (Auto) 3.5 % (0.0-4.3); Hematocrit 24.3 % (30.3-42.9); Lymphocytes # (Auto) 2.5 K/mm3 (1.2-5.4); Lymphocytes % (Auto) 24.2 % (13.4-35.0); Mean Corpuscular HGB Conc 33 % (30-34); Mean Corpuscular Volume 82 fl (79-97); Monocytes # (Auto) 0.7 K/mm3 (0.0-0.8); Monocytes % (Auto) 6.8 % (0.0-7.3); Platelet Count 276 K/mm3 (140-440); Red Blood Count 2.97 M/mm3 (3.65-5.03); Red Cell Distribution Width 17.2 % (13.2-15.2)
[2022-01-15 11:05] LABS: Blood Urea Nitrogen 27 mg/dL (7-17); Calcium 8.3 mg/dL (8.4-10.2); Hemolysis Index 0
[2022-01-15 11:06] LABS: BUN/Creatinine Ratio 45
--- NOTE | 2022-01-15 13:07 | Progress Note ---
Assessment and Plan Gram positive Bacteremia (MRSA) Acute respiratory failure with hypoxia, now on MVS Acute microcytic anemia Bilateral pneumonia DVT Left pleural effusion Cardiomyopathy EF 30-35% Moderate pulmonary HTN - keep chest tube to continuous suction in short term - resume SBT's in am - continue Lasix 20 mg p.o. daily - follow I's & O's and monitor electrolytes - continue daily SAT and SBT assessment as tolerated - no new issues otherwise, continue care as below; - LTAC evaluation ongoing - continue Seroquel - continue Vancomycin for MRSA bacteremia (6 weeks of therapy recommended) - prn Levophed for target MAP > 65 mmHg - continue to wean supplemental oxygen for target O2 sat's > 90% acutely - VAP bundle addressed - continue lung protective strategies - continue bronchodilators with routine trach care and pulmonary hygiene per RT - wean per pulmonary driven protocols otherwise - avoid nephrotoxins, renally dose all medications - continue accuchecks with glycemic control per SSI (While critically ill target blood glucose of 140-180 mg/dL; avoid hypoglycemia) - sedation prn for target RASS 0 to -1 - antibiotics per ID recommendations - continue to avoid benzodiazepine's, reduce the possibility of delirium - prn analgesia per CPOT score - Maintenance of sleep-wake cycle, avoid delirium - continue enteral nutritional support at goal rate as tolerated - G.I. & VTE prophylaxis - PT/OT/ROM exercises - continue mobility protocols for pressure ulcer prophylaxis - Monitor hemodynamics closely - continue other care per attending / other consultants - discharge planning ongoing concurrently COVID SPECIFIC INTERVENTIONS - COVID-19 PCR negative .... Re-evaluate in am & prn CONDITION: CRITICAL PROGNOSIS: GUARDED CODE STATUS: FULL CODE The high probability of a clinically significant, sudden or life-threatening deterioration of the [respiratory, cardiovascular & neurologic] system(s) required my full and direct attention, intervention and personal management. The aggregate critical care time was [32] minutes without overlap. Time includes spent on; [x] Data Review and interpretation [x] Patient assessment and monitoring of vital signs [x] Documentation [x] Medication orders and management Subjective Date of service: 01/15/22 Principal diagnosis: Septic shock; AHRF; Anemia; Pneumonia; pleural effusion; HFrEF; Pulm HTN Interval history: Patient is seen today for: Septic shock; Acute hypoxemic respiratory failure; Anemia; Bilateral pneumonia; Left pleural effusion; HFrEF 30-35%; Pulm HTN RVSP 49 Seen and examined at bedside; 24hour events reviewed; nursing and respiratory care staff consulted; no adverse overnight events reported to me; resting in bed; just back from I.R. and s/p chest tube; no emesis or overt aspiration; visiting today; not tolerating weaning since back from procedure Objective Vital Signs - 12hr 01/15/22 01/15/22 01/15/22 02:00 03:00 04:00 Temperature Pulse Rate 60 60 69 Pulse Rate [ 60 From Monitor] Respiratory 14 14 14 Rate Blood Pressure 96/38 97/42 102/42 O2 Sat by Pulse 97 96 98 Oximetry O2 Sat by Pulse Oximetry [ Assessment] 01/15/22 01/15/22 01/15/22 05:00 06:00 07:00 Temperature Pulse Rate 60 62 63 Pulse Rate [ From Monitor] Respiratory 13 14 14 Rate Blood Pressure 102/42 103/46 101/47 O2 Sat by Pulse 96 94 98 Oximetry O2 Sat by Pulse Oximetry [ Assessment] 01/15/22 01/15/22 01/15/22 07:15 08:00 09:00 Temperature 98.1 F Pulse Rate 72 Pulse Rate [ From Monitor] Respiratory Rate Blood Pressure 125/53 O2 Sat by Pulse 98 Oximetry O2 Sat by Pulse 96 Oximetry [ Assessment] 01/15/22 01/15/22 01/15/22 09:50 09:51 11:49 Temperature 98.2 F Pulse Rate 75 74 Pulse Rate [ From Monitor] Respiratory Rate Blood Pressure 123/53 123/53 O2 Sat by Pulse Oximetry O2 Sat by Pulse Oximetry [ Assessment] 01/15/22 12:25 Temperature Pulse Rate 74 Pulse Rate [ From Monitor] Respiratory 24 Rate Blood Pressure 173/97 O2 Sat by Pulse 95 Oximetry O2 Sat by Pulse Oximetry [ Assessment] Constitutional: alert, appears uncomfortable, other (trach to MVS, frail elderly woman with mildly increased respiratory effort at rest) Eyes: non-icteric ENT: oropharynx moist, other (+ Midline tracheostomy with minimal secretions) Neck: supple, no lymphadenopathy, no JVD Effort: mildly labored Ascultation: Bilateral: diminished breath sounds, rhonchi, other (Right chest tube) Percussion: Right: not dull, Left: dull (bases) Cardiovascular: regular rate and rhythm, other (S1,S2) Gastrointestinal: normoactive bowel sounds, soft, non-tender, non-distended (protuberant) Integumentary: normal Extremities: no cyanosis, pink and warm, pulses normal, edema (upper et remities), anasarca Neurologic: non-focal exam (grossly), pupils equal and round, motor strength normal and Psychiatric: mood appropriate, affect normal CBC and BMP: 01/15/22 Unknown 01/16/22 05:21 ABG, PT/INR, D-dimer: ABG ABG pH 7.479 pH Units (7.350-7.450) H 12/16/21 20:52 ABG pCO2 37.5 mm Hg 12/16/21 20:52 ABG pO2 79.3 mm Hg (80.0-90.0) L 12/16/21 20:52 ABG O2 Saturation 97.0 % (95.0-99.0) 12/16/21 20:52 PT/INR, D-dimer PT 16.9 Sec. (12.2-14.9) H 01/06/22 04:06 INR 1.23 (0.87-1.13) H 01/06/22 04:06 D-Dimer 2655.00 ng/mlDDU (0-234) H 11/11/21 04:28 Abnormal lab findings: Abnormal Labs 11/03/21 11/03/21 11/03/21 22:32 22:32 22:32 WBC 29.3 H RBC 2.93 L Hgb 6.1 L Hct 21.9 L MCV 75 L MCH 21 L MCHC 28 L RDW 19.7 H Plt Count Seg Neuts % (Manual) 97.0 H Lymphocytes % (Manual) 3.0 L Seg Neutrophils # Man 28.4 H Lymphocytes # (Manual) 0.9 L Monocytes # (Manual) PT 18.6 H INR 1.40 H D-Dimer ABG pH ABG pO2 ABG HCO3 ABG O2 Saturation ABG Base Excess ABG Hemoglobin Oxyhemoglobin Sodium Potassium Chloride Carbon Dioxide 20 L BUN 33 H Creatinine Glucose 119 H POC Glucose Lactic Acid Calcium 8.3 L Phosphorus Magnesium AST ALT Alkaline Phosphatase Lactate Dehydrogenase Troponin T 0.035 H C-Reactive Protein NT-Pro-B Natriuret Pep Total Protein Albumin LDL Cholesterol Direct 34 L Vitamin B12 Fluid Glucose Fluid Total Protein Vancomycin Trough Crossmatch 11/03/21 11/03/21 11/03/21 22:32 22:32 23:57 WBC RBC Hgb Hct MCV MCH MCHC RDW Plt Count Seg Neuts % (Manual) Lymphocytes % (Manual) Seg Neutrophils # Man Lymphocytes # (Manual) Monocytes # (Manual) PT INR D-Dimer ABG pH ABG pO2 ABG HCO3 ABG O2 Saturation ABG Base Excess ABG Hemoglobin Oxyhemoglobin Sodium Potassium Chloride Carbon Dioxide BUN Creatinine Glucose POC Glucose Lactic Acid 3.70 H* Calcium Phosphorus Magnesium AST ALT Alkaline Phosphatase 139 H Lactate Dehydrogenase Troponin T C-Reactive Protein NT-Pro-B Natriuret Pep 7895 H Total Protein Albumin 3.5 L LDL Cholesterol Direct Vitamin B12 Fluid Glucose Fluid Total Protein Vancomycin Trough Crossmatch See Detail 11/04/21 11/04/21 11/05/21 00:59 13:58 00:51 WBC 27.9 H RBC 3.28 L Hgb 7.3 L Hct 25.5 L MCV 78 L MCH 22 L MCHC 29 L RDW 19.1 H Plt Count Seg Neuts % (Manual) 96.0 H Lymphocytes % (Manual) 2.0 L Seg Neutrophils # Man 26.8 H Lymphocytes # (Manual) 0.6 L Monocytes # (Manual) PT INR D-Dimer ABG pH ABG pO2 ABG HCO3 ABG O2 Saturation ABG Base Excess ABG Hemoglobin Oxyhemoglobin Sodium Potassium Chloride Carbon Dioxide BUN Creatinine Glucose POC Glucose Lactic Acid Calcium Phosphorus Magnesium AST ALT Alkaline Phosphatase Lactate Dehydrogenase Troponin T 0.051 H D 0.032 H D C-Reactive Protein NT-Pro-B Natriuret Pep Total Protein Albumin LDL Cholesterol Direct Vitamin B12 Fluid Glucose Fluid Total Protein Vancomycin Trough Crossmatch 11/05/21 11/05/21 11/05/21 06:11 06:11 06:11 WBC 31.8 H RBC 3.57 L Hgb 8.0 L Hct 27.7 L MCV 78 L MCH 22 L MCHC 29 L RDW 19.2 H Plt Count Seg Neuts % (Manual) 91.0 H Lymphocytes % (Manual) 4.5 L Seg Neutrophils # Man 28.9 H Lymphocytes # (Manual) Monocytes # (Manual) 1.1 H PT INR D-Dimer 1494.53 H ABG pH ABG pO2 ABG HCO3 ABG O2 Saturation ABG Base Excess ABG Hemoglobin Oxyhemoglobin Sodium Potassium Chloride Carbon Dioxide 19 L BUN 42 H Creatinine Glucose 115 H POC Glucose Lactic Acid Calcium Phosphorus Magnesium AST 43 H ALT Alkaline Phosphatase Lactate Dehydrogenase 187 H Troponin T C-Reactive Protein 22.20 H NT-Pro-B Natriuret Pep Total Protein 6.0 L Albumin 3.2 L LDL Cholesterol Direct Vitamin B12 Fluid Glucose Fluid Total Protein Vancomycin Trough Crossmatch 11/05/21 11/05/21 11/06/21 06:11 12:15 00:30 WBC RBC Hgb Hct MCV MCH MCHC RDW Plt Count Seg Neuts % (Manual) Lymphocytes % (Manual) Seg Neutrophils # Man Lymphocytes # (Manual) Monocytes # (Manual) PT INR D-Dimer ABG pH ABG pO2 ABG HCO3 ABG O2 Saturation ABG Base Excess ABG Hemoglobin Oxyhemoglobin Sodium Potassium Chloride Carbon Dioxide BUN Creatinine Glucose POC Glucose 113 H 69 L Lactic Acid Calcium Phosphorus Magnesium AST ALT Alkaline Phosphatase Lactate Dehydrogenase Troponin T 0.033 H C-Reactive Protein NT-Pro-B Natriuret Pep Total Protein Albumin LDL Cholesterol Direct Vitamin B12 Fluid Glucose Fluid Total Protein Vancomycin Trough Crossmatch 11/06/21 11/06/21 11/06/21 05:50 15:50 15:50 WBC 25.5 H RBC 3.62 L Hgb 8.0 L Hct 27.5 L MCV 76 L MCH 22 L MCHC 29 L RDW 19.6 H Plt Count Seg Neuts % (Manual) 92.0 H Lymphocytes % (Manual) 5.0 L Seg Neutrophils # Man 23.5 H Lymphocytes # (Manual) Monocytes # (Manual) PT INR D-Dimer ABG pH 7.305 L ABG pO2 ABG HCO3 15.8 L ABG O2 Saturation ABG Base Excess -9.6 L ABG Hemoglobin 8.6 L Oxyhemoglobin 94.6 L Sodium Potassium Chloride 113.9 H Carbon Dioxide 17 L BUN 56 H Creatinine Glucose 114 H POC Glucose Lactic Acid Calcium 7.9 L Phosphorus Magnesium AST 1410 H ALT 934 H Alkaline Phosphatase 142 H Lactate Dehydrogenase Troponin T C-Reactive Protein NT-Pro-B Natriuret Pep Total Protein 5.0 L Albumin 2.6 L LDL Cholesterol Direct Vitamin B12 Fluid Glucose Fluid Total Protein Vancomycin Trough Crossmatch 11/07/21 11/07/21 11/07/21 03:30 04:50 08:07 WBC RBC Hgb Hct MCV MCH MCHC RDW Plt Count Seg Neuts % (Manual) Lymphocytes % (Manual) Seg Neutrophils # Man Lymphocytes # (Manual) Monocytes # (Manual) PT INR D-Dimer ABG pH ABG pO2 296.9 H ABG HCO3 18.1 L ABG O2 Saturation 99.5 H ABG Base Excess -5.9 L ABG Hemoglobin 7.6 L Oxyhemoglobin Sodium Potassium Chloride Carbon Dioxide BUN Creatinine Glucose POC Glucose 106 H 108 H Lactic Acid Calcium Phosphorus Magnesium AST ALT Alkaline Phosphatase Lactate Dehydrogenase Troponin T C-Reactive Protein NT-Pro-B Natriuret Pep Total Protein Albumin LDL Cholesterol Direct Vitamin B12 Fluid Glucose Fluid Total Protein Vancomycin Trough Crossmatch 11/08/21 11/08/21 11/08/21 03:10 18:05 23:43 WBC RBC Hgb Hct MCV MCH MCHC RDW Plt Count Seg Neuts % (Manual) Lymphocytes % (Manual) Seg Neutrophils # Man Lymphocytes # (Manual) Monocytes # (Manual) PT INR D-Dimer ABG pH ABG pO2 127.4 H ABG HCO3 ABG O2 Saturation ABG Base Excess -3.4 L ABG Hemoglobin 7.4 L Oxyhemoglobin Sodium Potassium Chloride Carbon Dioxide BUN Creatinine Glucose POC Glucose 113 H 141 H Lactic Acid Calcium Phosphorus Magnesium AST ALT Alkaline Phosphatase Lactate Dehydrogenase Troponin T C-Reactive Protein NT-Pro-B Natriuret Pep Total Protein Albumin LDL Cholesterol Direct Vitamin B12 Fluid Glucose Fluid Total Protein Vancomycin Trough Crossmatch 11/08/21 11/08/21 11/09/21 Unknown Unknown 02:00 WBC 14.5 H RBC 3.35 L Hgb 7.5 L 8.1 L Hct 25.4 L 27.6 L MCV 76 L 76 L MCH 23 L 22 L MCHC RDW 19.9 H 19.9 H Plt Count Seg Neuts % (Manual) Lymphocytes % (Manual) Seg Neutrophils # Man Lymphocytes # (Manual) Monocytes # (Manual) PT INR D-Dimer ABG pH ABG pO2 ABG HCO3 ABG O2 Saturation ABG Base Excess ABG Hemoglobin Oxyhemoglobin Sodium 154 H D Potassium 3.3 L Chloride 120.7 H Carbon Dioxide 20 L BUN 38 H Creatinine Glucose POC Glucose Lactic Acid Calcium 8.3 L Phosphorus Magnesium AST ALT Alkaline Phosphatase Lactate Dehydrogenase Troponin T C-Reactive Protein NT-Pro-B Natriuret Pep Total Protein Albumin LDL Cholesterol Direct Vitamin B12 Fluid Glucose Fluid Total Protein Vancomycin Trough Crossmatch 11/09/21 11/09/2122 02:00 02:31 05:12 WBC RBC Hgb Hct MCV MCH MCHC RDW Plt Count Seg Neuts % (Manual) Lymphocytes % (Manual) Seg Neutrophils # Man Lymphocytes # (Manual) Monocytes # (Manual) PT INR D-Dimer ABG pH 7.479 H ABG pO2 121.3 H ABG HCO3 ABG O2 Saturation ABG Base Excess ABG Hemoglobin 7.3 L Oxyhemoglobin Sodium Potassium Chloride 112.5 H Carbon Dioxide BUN 33 H Creatinine Glucose 161 H POC Glucose 135 H Lactic Acid Calcium Phosphorus Magnesium AST 251 H ALT 481 H Alkaline Phosphatase Lactate Dehydrogenase Troponin T C-Reactive Protein NT-Pro-B Natriuret Pep Total Protein 5.0 L Albumin 2.8 L LDL Cholesterol Direct Vitamin B12 Fluid Glucose Fluid Total Protein Vancomycin Trough Crossmatch 11/09/21 11/09/21 11/09/21 11:33 16:32 23:28 WBC RBC Hgb Hct MCV MCH MCHC RDW Plt Count Seg Neuts % (Manual) Lymphocytes % (Manual) Seg Neutrophils # Man Lymphocytes # (Manual) Monocytes # (Manual) PT INR D-Dimer ABG pH ABG pO2 ABG HCO3 ABG O2 Saturation ABG Base Excess ABG Hemoglobin Oxyhemoglobin Sodium Potassium Chloride Carbon Dioxide BUN Creatinine Glucose POC Glucose 132 H 133 H 143 H Lactic Acid Calcium Phosphorus Magnesium AST ALT Alkaline Phosphatase Lactate Dehydrogenase Troponin T C-Reactive Protein NT-Pro-B Natriuret Pep Total Protein Albumin LDL Cholesterol Direct Vitamin B12 Fluid Glucose Fluid Total Protein Vancomycin Trough Crossmatch 11/10/21 11/10/21 11/10/21 04:00 04:00 05:35 WBC 16.0 H RBC 3.61 L Hgb 8.0 L Hct 27.1 L MCV 75 L MCH 22 L MCHC RDW 20.4 H Plt Count Seg Neuts % (Manual) Lymphocytes % (Manual) Seg Neutrophils # Man Lymphocytes # (Manual) Monocytes # (Manual) PT INR D-Dimer ABG pH ABG pO2 ABG HCO3 ABG O2 Saturation ABG Base Excess ABG Hemoglobin Oxyhemoglobin Sodium 149 H Potassium Chloride 114.1 H Carbon Dioxide BUN 31 H Creatinine Glucose 148 H POC Glucose 132 H Lactic Acid Calcium 8.2 L Phosphorus Magnesium AST ALT Alkaline Phosphatase Lactate Dehydrogenase Troponin T C-Reactive Protein NT-Pro-B Natriuret Pep Total Protein Albumin LDL Cholesterol Direct Vitamin B12 Fluid Glucose Fluid Total Protein Vancomycin Trough Crossmatch 11/10/21 11/10/21 11/10/21 11:31 14:08 15:35 WBC RBC Hgb Hct MCV MCH MCHC RDW Plt Count Seg Neuts % (Manual) Lymphocytes % (Manual) Seg Neutrophils # Man Lymphocytes # (Manual) Monocytes # (Manual) PT INR D-Dimer ABG pH ABG pO2 126.6 H ABG HCO3 ABG O2 Saturation ABG Base Excess ABG Hemoglobin 7.4 L Oxyhemoglobin Sodium Potassium Chloride Carbon Dioxide BUN Creatinine Glucose POC Glucose 147 H Lactic Acid Calcium Phosphorus Magnesium AST ALT Alkaline Phosphatase Lactate Dehydrogenase Troponin T C-Reactive Protein NT-Pro-B Natriuret Pep Total Protein Albumin LDL Cholesterol Direct Vitamin B12 1823 H Fluid Glucose Fluid Total Protein Vancomycin Trough Crossmatch 11/10/21 11/11/21 11/11/21 17:53 00:55 04:28 WBC RBC Hgb Hct MCV MCH MCHC RDW Plt Count Seg Neuts % (Manual) Lymphocytes % (Manual) Seg Neutrophils # Man Lymphocytes # (Manual) Monocytes # (Manual) PT INR D-Dimer ABG pH ABG pO2 ABG HCO3 ABG O2 Saturation ABG Base Excess ABG Hemoglobin Oxyhemoglobin Sodium 149 H Potassium Chloride 112.2 H Carbon Dioxide BUN 34 H Creatinine Glucose 148 H POC Glucose 140 H 145 H Lactic Acid Calcium 7.9 L Phosphorus Magnesium AST 53 H ALT 203 H Alkaline Phosphatase Lactate Dehydrogenase Troponin T C-Reactive Protein NT-Pro-B Natriuret Pep Total Protein 4.9 L Albumin 2.6 L LDL Cholesterol Direct Vitamin B12 Fluid Glucose Fluid Total Protein Vancomycin Trough Crossmatch 11/11/21 11/11/21 11/11/21 04:28 04:28 05:28 WBC 20.9 H RBC 3.47 L Hgb 7.5 L Hct 26.0 L MCV 75 L MCH 22 L MCHC 29 L RDW 21.6 H Plt Count 132 L Seg Neuts % (Manual) Lymphocytes % (Manual) Seg Neutrophils # Man Lymphocytes # (Manual) Monocytes # (Manual) PT INR D-Dimer 2655.00 H ABG pH ABG pO2 ABG HCO3 ABG O2 Saturation ABG Base Excess ABG Hemoglobin Oxyhemoglobin Sodium Potassium Chloride Carbon Dioxide BUN Creatinine Glucose POC Glucose 154 H Lactic Acid Calcium Phosphorus Magnesium AST ALT Alkaline Phosphatase Lactate Dehydrogenase Troponin T C-Reactive Protein NT-Pro-B Natriuret Pep Total Protein Albumin LDL Cholesterol Direct Vitamin B12 Fluid Glucose Fluid Total Protein Vancomycin Trough Crossmatch 11/11/21 11/11/21 11/12/21 12:38 18:13 00:14 WBC RBC Hgb Hct MCV MCH MCHC RDW Plt Count Seg Neuts % (Manual) Lymphocytes % (Manual) Seg Neutrophils # Man Lymphocytes # (Manual) Monocytes # (Manual) PT INR D-Dimer ABG pH ABG pO2 ABG HCO3 ABG O2 Saturation ABG Base Excess ABG Hemoglobin Oxyhemoglobin Sodium Potassium Chloride Carbon Dioxide BUN Creatinine Glucose POC Glucose 137 H 108 H 137 H Lactic Acid Calcium Phosphorus Magnesium AST ALT Alkaline Phosphatase Lactate Dehydrogenase Troponin T C-Reactive Protein NT-Pro-B Natriuret Pep Total Protein Albumin LDL Cholesterol Direct Vitamin B12 Fluid Glucose Fluid Total Protein Vancomycin Trough Crossmatch 11/12/21 11/12/21 11/12/21 05:40 06:24 11:12 WBC RBC Hgb Hct MCV MCH MCHC RDW Plt Count Seg Neuts % (Manual) Lymphocytes % (Manual) Seg Neutrophils # Man Lymphocytes # (Manual) Monocytes # (Manual) PT INR D-Dimer ABG pH 7.586 H ABG pO2 150.6 H ABG HCO3 27.2 H ABG O2 Saturation 99.1 H ABG Base Excess 5.2 H ABG Hemoglobin 7.5 L Oxyhemoglobin Sodium Potassium Chloride Carbon Dioxide BUN Creatinine Glucose POC Glucose 132 H 140 H Lactic Acid Calcium Phosphorus Magnesium AST ALT Alkaline Phosphatase Lactate Dehydrogenase Troponin T C-Reactive Protein NT-Pro-B Natriuret Pep Total Protein Albumin LDL Cholesterol Direct Vitamin B12 Fluid Glucose Fluid Total Protein Vancomycin Trough Crossmatch 11/12/21 11/12/21 11/12/21 14:50 14:50 17:13 WBC 19.8 H RBC 3.27 L Hgb 7.1 L Hct 24.5 L MCV 75 L MCH 22 L MCHC 29 L RDW 22.3 H Plt Count Seg Neuts % (Manual) Lymphocytes % (Manual) Seg Neutrophils # Man Lymphocytes # (Manual) Monocytes # (Manual) PT INR D-Dimer ABG pH ABG pO2 ABG HCO3 ABG O2 Saturation ABG Base Excess ABG Hemoglobin Oxyhemoglobin Sodium 150 H Potassium 3.3 L Chloride 112.0 H Carbon Dioxide BUN 40 H Creatinine Glucose 151 H POC Glucose 121 H Lactic Acid Calcium 7.4 L Phosphorus 1.70 L Magnesium 1.40 L AST ALT Alkaline Phosphatase Lactate Dehydrogenase Troponin T C-Reactive Protein NT-Pro-B Natriuret Pep Total Protein Albumin LDL Cholesterol Direct Vitamin B12 Fluid Glucose Fluid Total Protein Vancomycin Trough Crossmatch 11/12/21 11/13/21 11/13/21 23:19 05:34 06:30 WBC RBC Hgb Hct MCV MCH MCHC RDW Plt Count Seg Neuts % (Manual) Lymphocytes % (Manual) Seg Neutrophils # Man Lymphocytes # (Manual) Monocytes # (Manual) PT INR D-Dimer ABG pH ABG pO2 ABG HCO3 ABG O2 Saturation ABG Base Excess ABG Hemoglobin Oxyhemoglobin Sodium 149 H Potassium Chloride 60.0 L Carbon Dioxide BUN 40 H Creatinine Glucose 146 H POC Glucose 113 H 132 H Lactic Acid Calcium 7.3 L Phosphorus Magnesium 2.40 H AST ALT 72 H Alkaline Phosphatase Lactate Dehydrogenase Troponin T C-Reactive Protein NT-Pro-B Natriuret Pep Total Protein 5.2 L Albumin 2.2 L LDL Cholesterol Direct Vitamin B12 Fluid Glucose Fluid Total Protein Vancomycin Trough Crossmatch 11/13/21 11/13/21 11/13/21 06:30 08:30 11:19 WBC 21.2 H RBC 3.12 L Hgb 6.8 L Hct 23.2 L MCV 74 L MCH 22 L MCHC 29 L RDW 22.2 H Plt Count 135 L Seg Neuts % (Manual) Lymphocytes % (Manual) Seg Neutrophils # Man Lymphocytes # (Manual) Monocytes # (Manual) PT INR D-Dimer ABG pH ABG pO2 ABG HCO3 ABG O2 Saturation ABG Base Excess ABG Hemoglobin Oxyhemoglobin Sodium Potassium Chloride Carbon Dioxide BUN Creatinine Glucose POC Glucose 136 H Lactic Acid Calcium Phosphorus Magnesium AST ALT Alkaline Phosphatase Lactate Dehydrogenase Troponin T C-Reactive Protein NT-Pro-B Natriuret Pep Total Protein Albumin LDL Cholesterol Direct Vitamin B12 Fluid Glucose Fluid Total Protein Vancomycin Trough Crossmatch See Detail 11/13/21 11/14/21 11/14/21 18:21 00:01 04:46 WBC 20.0 H RBC 3.41 L Hgb 7.9 L Hct 26.8 L MCV MCH 23 L MCHC 29 L RDW 24.0 H Plt Count Seg Neuts % (Manual) Lymphocytes % (Manual) Seg Neutrophils # Man Lymphocytes # (Manual) Monocytes # (Manual) PT INR D-Dimer ABG pH ABG pO2 ABG HCO3 ABG O2 Saturation ABG Base Excess ABG Hemoglobin Oxyhemoglobin Sodium Potassium Chloride Carbon Dioxide BUN Creatinine Glucose POC Glucose 149 H 141 H Lactic Acid Calcium Phosphorus Magnesium AST ALT Alkaline Phosphatase Lactate Dehydrogenase Troponin T C-Reactive Protein NT-Pro-B Natriuret Pep Total Protein Albumin LDL Cholesterol Direct Vitamin B12 Fluid Glucose Fluid Total Protein Vancomycin Trough Crossmatch 11/14/21 11/14/21 11/14/21 04:46 05:10 11:10 WBC RBC Hgb Hct MCV MCH MCHC RDW Plt Count Seg Neuts % (Manual) Lymphocytes % (Manual) Seg Neutrophils # Man Lymphocytes # (Manual) Monocytes # (Manual) PT INR D-Dimer ABG pH ABG pO2 ABG HCO3 ABG O2 Saturation ABG Base Excess ABG Hemoglobin Oxyhemoglobin Sodium 148 H Potassium Chloride 113.1 H Carbon Dioxide BUN 43 H Creatinine Glucose 140 H POC Glucose 132 H 133 H Lactic Acid Calcium 7.5 L Phosphorus Magnesium AST ALT Alkaline Phosphatase Lactate Dehydrogenase Troponin T C-Reactive Protein NT-Pro-B Natriuret Pep Total Protein Albumin LDL Cholesterol Direct Vitamin B12 Fluid Glucose Fluid Total Protein Vancomycin Trough Crossmatch 11/14/21 11/14/21 11/14/21 16:14 17:48 23:23 WBC RBC Hgb Hct MCV MCH MCHC RDW Plt Count Seg Neuts % (Manual) Lymphocytes % (Manual) Seg Neutrophils # Man Lymphocytes # (Manual) Monocytes # (Manual) PT INR D-Dimer ABG pH ABG pO2 ABG HCO3 28.0 H ABG O2 Saturation ABG Base Excess 3.1 H ABG Hemoglobin 5.8 L Oxyhemoglobin 94.8 L Sodium Potassium Chloride Carbon Dioxide BUN Creatinine Glucose POC Glucose 130 H 136 H Lactic Acid Calcium Phosphorus Magnesium AST ALT Alkaline Phosphatase Lactate Dehydrogenase Troponin T C-Reactive Protein NT-Pro-B Natriuret Pep Total Protein Albumin LDL Cholesterol Direct Vitamin B12 Fluid Glucose Fluid Total Protein Vancomycin Trough Crossmatch 11/15/21 11/15/21 11/15/21 05:20 05:50 05:50 WBC 19.9 H RBC 3.50 L Hgb 8.2 L Hct 27.9 L MCV MCH 23 L MCHC 29 L RDW 24.9 H Plt Count Seg Neuts % (Manual) Lymphocytes % (Manual) Seg Neutrophils # Man Lymphocytes # (Manual) Monocytes # (Manual) PT INR D-Dimer ABG pH ABG pO2 ABG HCO3 ABG O2 Saturation ABG Base Excess ABG Hemoglobin Oxyhemoglobin Sodium 149 H Potassium Chloride 112.0 H Carbon Dioxide BUN 48 H Creatinine Glucose 152 H POC Glucose 137 H Lactic Acid Calcium 7.9 L Phosphorus Magnesium AST ALT Alkaline Phosphatase Lactate Dehydrogenase Troponin T C-Reactive Protein NT-Pro-B Natriuret Pep Total Protein Albumin LDL Cholesterol Direct Vitamin B12 Fluid Glucose Fluid Total Protein Vancomycin Trough Crossmatch 11/15/21 11/15/21 11/15/21 12:12 17:07 23:24 WBC RBC Hgb Hct MCV MCH MCHC RDW Plt Count Seg Neuts % (Manual) Lymphocytes % (Manual) Seg Neutrophils # Man Lymphocytes # (Manual) Monocytes # (Manual) PT INR D-Dimer ABG pH ABG pO2 ABG HCO3 ABG O2 Saturation ABG Base Excess ABG Hemoglobin Oxyhemoglobin Sodium Potassium Chloride Carbon Dioxide BUN Creatinine Glucose POC Glucose 114 H 135 H 123 H Lactic Acid Calcium Phosphorus Magnesium AST ALT Alkaline Phosphatase Lactate Dehydrogenase Troponin T C-Reactive Protein NT-Pro-B Natriuret Pep Total Protein Albumin LDL Cholesterol Direct Vitamin B12 Fluid Glucose Fluid Total Protein Vancomycin Trough Crossmatch 11/16/21 11/16/21 11/16/21 05:21 10:00 10:00 WBC 21.7 H RBC 2.57 L Hgb 6.0 L Hct 20.2 L D MCV MCH 24 L MCHC RDW 26.3 H Plt Count Seg Neuts % (Manual) Lymphocytes % (Manual) Seg Neutrophils # Man Lymphocytes # (Manual) Monocytes # (Manual) PT INR D-Dimer ABG pH ABG pO2 ABG HCO3 ABG O2 Saturation ABG Base Excess ABG Hemoglobin Oxyhemoglobin Sodium 153 H Potassium Chloride 114.9 H Carbon Dioxide BUN 74 H Creatinine Glucose 155 H POC Glucose 127 H Lactic Acid Calcium 8.1 L Phosphorus Magnesium AST ALT Alkaline Phosphatase Lactate Dehydrogenase Troponin T C-Reactive Protein NT-Pro-B Natriuret Pep Total Protein Albumin LDL Cholesterol Direct Vitamin B12 Fluid Glucose Fluid Total Protein Vancomycin Trough Crossmatch 11/16/21 11/16/21 11/16/21 11:34 14:00 15:25 WBC 17.2 H RBC 2.08 L Hgb 4.7 L* Hct 16.2 L* MCV 78 L MCH 23 L MCHC 29 L RDW 26.0 H Plt Count Seg Neuts % (Manual) 87.0 H Lymphocytes % (Manual) 8.0 L Seg Neutrophils # Man 15.0 H Lymphocytes # (Manual) Monocytes # (Manual) 0.9 H PT INR D-Dimer ABG pH ABG pO2 ABG HCO3 ABG O2 Saturation ABG Base Excess ABG Hemoglobin Oxyhemoglobin Sodium Potassium Chloride Carbon Dioxide BUN Creatinine Glucose POC Glucose 131 H Lactic Acid Calcium Phosphorus Magnesium AST ALT Alkaline Phosphatase Lactate Dehydrogenase Troponin T C-Reactive Protein NT-Pro-B Natriuret Pep Total Protein Albumin LDL Cholesterol Direct Vitamin B12 Fluid Glucose Fluid Total Protein Vancomycin Trough Crossmatch See Detail 11/16/21 11/16/21 11/16/21 15:25 17:21 22:43 WBC RBC Hgb 8.6 L D Hct 27.7 L D MCV MCH MCHC RDW Plt Count Seg Neuts % (Manual) Lymphocytes % (Manual) Seg Neutrophils # Man Lymphocytes # (Manual) Monocytes # (Manual) PT INR D-Dimer ABG pH ABG pO2 ABG HCO3 ABG O2 Saturation ABG Base Excess ABG Hemoglobin Oxyhemoglobin Sodium 148 H Potassium Chloride 113.2 H Carbon Dioxide BUN 84 H Creatinine Glucose 164 H POC Glucose 124 H Lactic Acid Calcium 7.6 L Phosphorus Magnesium AST ALT Alkaline Phosphatase Lactate Dehydrogenase Troponin T C-Reactive Protein NT-Pro-B Natriuret Pep Total Protein Albumin LDL Cholesterol Direct Vitamin B12 Fluid Glucose Fluid Total Protein Vancomycin Trough Crossmatch 11/16/21 11/17/21 11/17/21 23:07 05:33 05:56 WBC 25.1 H RBC 3.47 L Hgb 8.7 L Hct 28.5 L MCV MCH 25 L MCHC RDW 22.3 H Plt Count Seg Neuts % (Manual) Lymphocytes % (Manual) Seg Neutrophils # Man Lymphocytes # (Manual) Monocytes # (Manual) PT INR D-Dimer ABG pH ABG pO2 ABG HCO3 ABG O2 Saturation ABG Base Excess ABG Hemoglobin Oxyhemoglobin Sodium Potassium Chloride Carbon Dioxide BUN Creatinine Glucose POC Glucose 128 H 133 H Lactic Acid Calcium Phosphorus Magnesium AST ALT Alkaline Phosphatase Lactate Dehydrogenase Troponin T C-Reactive Protein NT-Pro-B Natriuret Pep Total Protein Albumin LDL Cholesterol Direct Vitamin B12 Fluid Glucose Fluid Total Protein Vancomycin Trough Crossmatch 11/17/21 11/17/21 11/17/21 05:56 11:00 11:55 WBC RBC Hgb 8.3 L Hct 26.9 L MCV MCH MCHC RDW Plt Count Seg Neuts % (Manual) Lymphocytes % (Manual) Seg Neutrophils # Man Lymphocytes # (Manual) Monocytes # (Manual) PT INR D-Dimer ABG pH ABG pO2 ABG HCO3 ABG O2 Saturation ABG Base Excess ABG Hemoglobin Oxyhemoglobin Sodium 151 H Potassium Chloride 113.6 H Carbon Dioxide BUN 85 H Creatinine Glucose 132 H POC Glucose 121 H Lactic Acid Calcium 7.8 L Phosphorus Magnesium AST ALT Alkaline Phosphatase Lactate Dehydrogenase Troponin T C-Reactive Protein NT-Pro-B Natriuret Pep Total Protein 5.1 L Albumin 2.2 L LDL Cholesterol Direct Vitamin B12 Fluid Glucose Fluid Total Protein Vancomycin Trough Crossmatch 11/17/21 11/17/21 11/18/21 18:04 18:55 00:26 WBC RBC Hgb 7.5 L 7.1 L Hct 24.8 L 23.6 L MCV MCH MCHC RDW Plt Count Seg Neuts % (Manual) Lymphocytes % (Manual) Seg Neutrophils # Man Lymphocytes # (Manual) Monocytes # (Manual) PT INR D-Dimer ABG pH ABG pO2 ABG HCO3 ABG O2 Saturation ABG Base Excess ABG Hemoglobin Oxyhemoglobin Sodium Potassium Chloride Carbon Dioxide BUN Creatinine Glucose POC Glucose 144 H Lactic Acid Calcium Phosphorus Magnesium AST ALT Alkaline Phosphatase Lactate Dehydrogenase Troponin T C-Reactive Protein NT-Pro-B Natriuret Pep Total Protein Albumin LDL Cholesterol Direct Vitamin B12 Fluid Glucose Fluid Total Protein Vancomycin Trough Crossmatch 11/18/21 11/18/21 11/18/21 00:43 05:10 05:10 WBC 12.5 H RBC 2.39 L Hgb 6.1 L Hct 20.2 L MCV MCH 25 L MCHC RDW 23.2 H Plt Count Seg Neuts % (Manual) Lymphocytes % (Manual) Seg Neutrophils # Man Lymphocytes # (Manual) Monocytes # (Manual) PT INR D-Dimer ABG pH ABG pO2 ABG HCO3 ABG O2 Saturation ABG Base Excess ABG Hemoglobin Oxyhemoglobin Sodium 131 L D Potassium 2.9 L* D Chloride 97.8 L Carbon Dioxide BUN 58 H Creatinine Glucose 665 H* POC Glucose 139 H Lactic Acid Calcium 7.0 L Phosphorus 2.20 L D Magnesium 1.50 L AST ALT Alkaline Phosphatase Lactate Dehydrogenase Troponin T C-Reactive Protein NT-Pro-B Natriuret Pep Total Protein Albumin LDL Cholesterol Direct Vitamin B12 Fluid Glucose Fluid Total Protein Vancomycin Trough Crossmatch 11/18/21 11/18/21 11/18/21 05:23 07:10 10:45 WBC RBC Hgb Hct MCV MCH MCHC RDW Plt Count Seg Neuts % (Manual) Lymphocytes % (Manual) Seg Neutrophils # Man Lymphocytes # (Manual) Monocytes # (Manual) PT INR D-Dimer ABG pH ABG pO2 ABG HCO3 ABG O2 Saturation ABG Base Excess ABG Hemoglobin Oxyhemoglobin Sodium 148 H D Potassium 3.1 L Chloride 111.9 H Carbon Dioxide BUN 63 H Creatinine Glucose 141 H POC Glucose 124 H Lactic Acid Calcium 8.1 L D Phosphorus Magnesium AST ALT Alkaline Phosphatase Lactate Dehydrogenase Troponin T C-Reactive Protein NT-Pro-B Natriuret Pep Total Protein Albumin LDL Cholesterol Direct Vitamin B12 Fluid Glucose Fluid Total Protein Vancomycin Trough Crossmatch See Detail 11/18/21 11/19/21 11/19/21 11:57 00:19 04:55 WBC RBC 3.35 L Hgb 9.0 L 8.9 L Hct 28.3 L D 28.1 L MCV MCH 27 L MCHC RDW 20.3 H Plt Count Seg Neuts % (Manual) Lymphocytes % (Manual) Seg Neutrophils # Man Lymphocytes # (Manual) Monocytes # (Manual) PT INR D-Dimer ABG pH ABG pO2 ABG HCO3 ABG O2 Saturation ABG Base Excess ABG Hemoglobin Oxyhemoglobin Sodium Potassium Chloride Carbon Dioxide BUN Creatinine Glucose POC Glucose 119 H Lactic Acid Calcium Phosphorus Magnesium AST ALT Alkaline Phosphatase Lactate Dehydrogenase Troponin T C-Reactive Protein NT-Pro-B Natriuret Pep Total Protein Albumin LDL Cholesterol Direct Vitamin B12 Fluid Glucose Fluid Total Protein Vancomycin Trough Crossmatch 11/19/21 11/19/21 11/20/21 04:55 05:42 00:55 WBC RBC Hgb 9.0 L Hct 28.6 L MCV MCH MCHC RDW Plt Count Seg Neuts % (Manual) Lymphocytes % (Manual) Seg Neutrophils # Man Lymphocytes # (Manual) Monocytes # (Manual) PT INR D-Dimer ABG pH ABG pO2 ABG HCO3 ABG O2 Saturation ABG Base Excess ABG Hemoglobin Oxyhemoglobin Sodium Potassium 3.5 L Chloride 108.6 H Carbon Dioxide BUN 47 H Creatinine Glucose 207 H POC Glucose 63 L Lactic Acid Calcium 7.1 L Phosphorus Magnesium AST ALT Alkaline Phosphatase Lactate Dehydrogenase Troponin T C-Reactive Protein NT-Pro-B Natriuret Pep Total Protein Albumin LDL Cholesterol Direct Vitamin B12 Fluid Glucose Fluid Total Protein Vancomycin Trough Crossmatch 11/20/21 11/20/21 11/20/21 05:40 05:40 Unknown WBC RBC 3.40 L Hgb 9.1 L Hct 28.8 L MCV MCH 27 L MCHC RDW 20.7 H Plt Count Seg Neuts % (Manual) Lymphocytes % (Manual) Seg Neutrophils # Man Lymphocytes # (Manual) Monocytes # (Manual) PT INR D-Dimer ABG pH ABG pO2 ABG HCO3 ABG O2 Saturation ABG Base Excess -2.7 L ABG Hemoglobin 9.5 L Oxyhemoglobin 94.3 L Sodium Potassium 3.5 L Chloride 108.9 H Carbon Dioxide BUN 37 H Creatinine Glucose 117 H POC Glucose Lactic Acid Calcium 7.5 L Phosphorus Magnesium AST ALT Alkaline Phosphatase Lactate Dehydrogenase Troponin T C-Reactive Protein NT-Pro-B Natriuret Pep Total Protein Albumin LDL Cholesterol Direct Vitamin B12 Fluid Glucose Fluid Total Protein Vancomycin Trough Crossmatch 11/21/21 11/21/21 11/21/21 04:30 04:30 16:00 WBC RBC 3.25 L Hgb 8.6 L Hct 28.1 L MCV MCH 26 L MCHC RDW 20.7 H Plt Count Seg Neuts % (Manual) Lymphocytes % (Manual) Seg Neutrophils # Man Lymphocytes # (Manual) Monocytes # (Manual) PT INR D-Dimer ABG pH ABG pO2 114.2 H ABG HCO3 ABG O2 Saturation ABG Base Excess ABG Hemoglobin 9.1 L Oxyhemoglobin Sodium 134 L Potassium Chloride Carbon Dioxide 20 L BUN 34 H Creatinine Glucose POC Glucose Lactic Acid Calcium 7.1 L Phosphorus Magnesium AST ALT Alkaline Phosphatase Lactate Dehydrogenase Troponin T C-Reactive Protein NT-Pro-B Natriuret Pep Total Protein Albumin LDL Cholesterol Direct Vitamin B12 Fluid Glucose Fluid Total Protein Vancomycin Trough Crossmatch 11/22/21 11/22/21 11/22/21 07:07 07:07 23:54 WBC RBC 3.30 L Hgb 9.0 L Hct 28.5 L MCV MCH 27 L MCHC RDW 21.0 H Plt Count Seg Neuts % (Manual) Lymphocytes % (Manual) Seg Neutrophils # Man Lymphocytes # (Manual) Monocytes # (Manual) PT INR D-Dimer ABG pH ABG pO2 ABG HCO3 ABG O2 Saturation ABG Base Excess ABG Hemoglobin Oxyhemoglobin Sodium Potassium Chloride Carbon Dioxide BUN 32 H Creatinine Glucose 106 H POC Glucose 110 H Lactic Acid Calcium 7.5 L Phosphorus Magnesium AST ALT Alkaline Phosphatase Lactate Dehydrogenase Troponin T C-Reactive Protein NT-Pro-B Natriuret Pep Total Protein Albumin LDL Cholesterol Direct Vitamin B12 Fluid Glucose Fluid Total Protein Vancomycin Trough Crossmatch 11/23/21 11/23/21 11/23/21 04:38 04:38 06:01 WBC RBC 3.23 L Hgb 8.8 L Hct 28.0 L MCV MCH 27 L MCHC RDW 21.3 H Plt Count Seg Neuts % (Manual) Lymphocytes % (Manual) Seg Neutrophils # Man Lymphocytes # (Manual) Monocytes # (Manual) PT INR D-Dimer ABG pH ABG pO2 ABG HCO3 ABG O2 Saturation ABG Base Excess ABG Hemoglobin Oxyhemoglobin Sodium 136 L Potassium Chloride Carbon Dioxide 20 L BUN 32 H Creatinine Glucose 109 H POC Glucose 115 H Lactic Acid Calcium 7.7 L Phosphorus Magnesium AST ALT Alkaline Phosphatase Lactate Dehydrogenase Troponin T C-Reactive Protein NT-Pro-B Natriuret Pep Total Protein Albumin LDL Cholesterol Direct Vitamin B12 Fluid Glucose Fluid Total Protein Vancomycin Trough Crossmatch 11/23/21 11/24/21 11/24/21 11:40 00:03 04:13 WBC RBC 3.18 L Hgb 8.5 L Hct 27.5 L MCV MCH 27 L MCHC RDW 21.6 H Plt Count Seg Neuts % (Manual) Lymphocytes % (Manual) Seg Neutrophils # Man Lymphocytes # (Manual) Monocytes # (Manual) PT INR D-Dimer ABG pH ABG pO2 ABG HCO3 ABG O2 Saturation ABG Base Excess ABG Hemoglobin Oxyhemoglobin Sodium Potassium Chloride Carbon Dioxide BUN Creatinine Glucose POC Glucose 117 H 111 H Lactic Acid Calcium Phosphorus Magnesium AST ALT Alkaline Phosphatase Lactate Dehydrogenase Troponin T C-Reactive Protein NT-Pro-B Natriuret Pep Total Protein Albumin LDL Cholesterol Direct Vitamin B12 Fluid Glucose Fluid Total Protein Vancomycin Trough Crossmatch 11/24/21 11/24/21 11/24/21 04:13 05:30 11:10 WBC RBC Hgb Hct MCV MCH MCHC RDW Plt Count Seg Neuts % (Manual) Lymphocytes % (Manual) Seg Neutrophils # Man Lymphocytes # (Manual) Monocytes # (Manual) PT INR D-Dimer ABG pH ABG pO2 ABG HCO3 ABG O2 Saturation ABG Base Excess ABG Hemoglobin Oxyhemoglobin Sodium Potassium Chloride Carbon Dioxide BUN 31 H Creatinine Glucose 101 H POC Glucose 115 H 107 H Lactic Acid Calcium 7.7 L Phosphorus Magnesium AST ALT Alkaline Phosphatase Lactate Dehydrogenase Troponin T C-Reactive Protein NT-Pro-B Natriuret Pep Total Protein Albumin LDL Cholesterol Direct Vitamin B12 Fluid Glucose Fluid Total Protein Vancomycin Trough Crossmatch 11/24/21 11/24/21 11/25/21 16:34 17:57 05:12 WBC RBC 3.11 L Hgb 8.2 L Hct 26.6 L MCV MCH 26 L MCHC RDW 21.3 H Plt Count Seg Neuts % (Manual) Lymphocytes % (Manual) Seg Neutrophils # Man Lymphocytes # (Manual) Monocytes # (Manual) PT INR D-Dimer ABG pH ABG pO2 ABG HCO3 ABG O2 Saturation ABG Base Excess ABG Hemoglobin Oxyhemoglobin Sodium Potassium Chloride Carbon Dioxide BUN Creatinine Glucose POC Glucose 115 H 110 H Lactic Acid Calcium Phosphorus Magnesium AST ALT Alkaline Phosphatase Lactate Dehydrogenase Troponin T C-Reactive Protein NT-Pro-B Natriuret Pep Total Protein Albumin LDL Cholesterol Direct Vitamin B12 Fluid Glucose Fluid Total Protein Vancomycin Trough Crossmatch 11/25/21 11/25/21 11/26/21 05:12 11:20 05:00 WBC RBC 3.30 L Hgb 8.8 L Hct 28.2 L MCV MCH 27 L MCHC RDW 20.7 H Plt Count Seg Neuts % (Manual) Lymphocytes % (Manual) Seg Neutrophils # Man Lymphocytes # (Manual) Monocytes # (Manual) PT INR D-Dimer ABG pH ABG pO2 ABG HCO3 ABG O2 Saturation ABG Base Excess ABG Hemoglobin Oxyhemoglobin Sodium Potassium Chloride Carbon Dioxide BUN 32 H Creatinine Glucose 118 H POC Glucose 118 H Lactic Acid Calcium 8.2 L Phosphorus Magnesium AST ALT Alkaline Phosphatase Lactate Dehydrogenase Troponin T C-Reactive Protein NT-Pro-B Natriuret Pep Total Protein Albumin LDL Cholesterol Direct Vitamin B12 Fluid Glucose Fluid Total Protein Vancomycin Trough Crossmatch 11/26/21 11/26/21 11/26/21 05:00 05:00 05:44 WBC RBC Hgb Hct MCV MCH MCHC RDW Plt Count Seg Neuts % (Manual) Lymphocytes % (Manual) Seg Neutrophils # Man Lymphocytes # (Manual) Monocytes # (Manual) PT 16.9 H INR 1.24 H D-Dimer ABG pH ABG pO2 ABG HCO3 ABG O2 Saturation ABG Base Excess ABG Hemoglobin Oxyhemoglobin Sodium Potassium Chloride Carbon Dioxide BUN 31 H Creatinine Glucose 104 H POC Glucose 110 H Lactic Acid Calcium 7.9 L Phosphorus Magnesium AST ALT Alkaline Phosphatase Lactate Dehydrogenase Troponin T C-Reactive Protein NT-Pro-B Natriuret Pep Total Protein Albumin LDL Cholesterol Direct Vitamin B12 Fluid Glucose Fluid Total Protein Vancomycin Trough Crossmatch 11/26/21 11/27/21 11/27/21 23:55 07:40 07:40 WBC RBC 3.18 L Hgb 8.5 L Hct 27.0 L MCV MCH 27 L MCHC RDW 21.2 H Plt Count Seg Neuts % (Manual) Lymphocytes % (Manual) Seg Neutrophils # Man Lymphocytes # (Manual) Monocytes # (Manual) PT INR D-Dimer ABG pH ABG pO2 ABG HCO3 ABG O2 Saturation ABG Base Excess ABG Hemoglobin Oxyhemoglobin Sodium Potassium Chloride Carbon Dioxide BUN 27 H Creatinine Glucose 112 H POC Glucose 63 L Lactic Acid Calcium 7.6 L Phosphorus Magnesium AST ALT Alkaline Phosphatase Lactate Dehydrogenase Troponin T C-Reactive Protein NT-Pro-B Natriuret Pep Total Protein Albumin LDL Cholesterol Direct Vitamin B12 Fluid Glucose Fluid Total Protein Vancomycin Trough Crossmatch 11/27/21 11/27/21 11/27/21 12:04 13:40 13:40 WBC RBC 3.31 L Hgb 8.7 L Hct 28.0 L MCV MCH 26 L MCHC RDW 20.7 H Plt Count Seg Neuts % (Manual) Lymphocytes % (Manual) Seg Neutrophils # Man Lymphocytes # (Manual) Monocytes # (Manual) PT INR D-Dimer ABG pH ABG pO2 ABG HCO3 ABG O2 Saturation ABG Base Excess ABG Hemoglobin Oxyhemoglobin Sodium 136 L Potassium Chloride Carbon Dioxide BUN 25 H Creatinine Glucose 127 H POC Glucose 109 H Lactic Acid Calcium 7.6 L Phosphorus Magnesium 1.40 L AST ALT Alkaline Phosphatase Lactate Dehydrogenase Troponin T C-Reactive Protein NT-Pro-B Natriuret Pep Total Protein Albumin LDL Cholesterol Direct Vitamin B12 Fluid Glucose Fluid Total Protein Vancomycin Trough Crossmatch 11/27/21 11/27/21 11/28/21 17:44 23:33 12:20 WBC RBC Hgb Hct MCV MCH MCHC RDW Plt Count Seg Neuts % (Manual) Lymphocytes % (Manual) Seg Neutrophils # Man Lymphocytes # (Manual) Monocytes # (Manual) PT INR D-Dimer ABG pH ABG pO2 ABG HCO3 ABG O2 Saturation ABG Base Excess ABG Hemoglobin Oxyhemoglobin Sodium Potassium Chloride Carbon Dioxide BUN Creatinine Glucose POC Glucose 107 H 108 H 114 H Lactic Acid Calcium Phosphorus Magnesium AST ALT Alkaline Phosphatase Lactate Dehydrogenase Troponin T C-Reactive Protein NT-Pro-B Natriuret Pep Total Protein Albumin LDL Cholesterol Direct Vitamin B12 Fluid Glucose Fluid Total Protein Vancomycin Trough Crossmatch 11/29/21 11/29/21 11/29/21 00:09 03:20 03:20 WBC RBC 3.05 L Hgb 8.2 L Hct 25.8 L MCV MCH 27 L MCHC RDW 20.9 H Plt Count Seg Neuts % (Manual) Lymphocytes % (Manual) Seg Neutrophils # Man Lymphocytes # (Manual) Monocytes # (Manual) PT INR D-Dimer ABG pH ABG pO2 ABG HCO3 ABG O2 Saturation ABG Base Excess ABG Hemoglobin Oxyhemoglobin Sodium 133 L Potassium Chloride Carbon Dioxide BUN 24 H Creatinine Glucose 137 H POC Glucose 134 H Lactic Acid Calcium 7.4 L Phosphorus Magnesium AST ALT Alkaline Phosphatase Lactate Dehydrogenase Troponin T C-Reactive Protein NT-Pro-B Natriuret Pep Total Protein Albumin LDL Cholesterol Direct Vitamin B12 Fluid Glucose Fluid Total Protein Vancomycin Trough Crossmatch 11/29/21 11/29/21 11/29/21 05:38 11:39 17:11 WBC RBC Hgb Hct MCV MCH MCHC RDW Plt Count Seg Neuts % (Manual) Lymphocytes % (Manual) Seg Neutrophils # Man Lymphocytes # (Manual) Monocytes # (Manual) PT INR D-Dimer ABG pH ABG pO2 ABG HCO3 ABG O2 Saturation ABG Base Excess ABG Hemoglobin Oxyhemoglobin Sodium Potassium Chloride Carbon Dioxide BUN Creatinine Glucose POC Glucose 117 H 143 H 124 H Lactic Acid Calcium Phosphorus Magnesium AST ALT Alkaline Phosphatase Lactate Dehydrogenase Troponin T C-Reactive Protein NT-Pro-B Natriuret Pep Total Protein Albumin LDL Cholesterol Direct Vitamin B12 Fluid Glucose Fluid Total Protein Vancomycin Trough Crossmatch 11/29/21 11/30/21 11/30/21 20:15 05:40 05:40 WBC 12.6 H RBC 3.41 L Hgb 9.1 L Hct 28.9 L MCV MCH 27 L MCHC RDW 20.4 H Plt Count Seg Neuts % (Manual) Lymphocytes % (Manual) Seg Neutrophils # Man Lymphocytes # (Manual) Monocytes # (Manual) PT INR D-Dimer ABG pH ABG pO2 ABG HCO3 ABG O2 Saturation ABG Base Excess ABG Hemoglobin Oxyhemoglobin Sodium Potassium Chloride Carbon Dioxide BUN 24 H Creatinine Glucose 131 H POC Glucose Lactic Acid Calcium 7.6 L Phosphorus Magnesium AST ALT Alkaline Phosphatase Lactate Dehydrogenase Troponin T 0.045 H C-Reactive Protein NT-Pro-B Natriuret Pep Total Protein Albumin LDL Cholesterol Direct 25 L Vitamin B12 Fluid Glucose Fluid Total Protein Vancomycin Trough Crossmatch 11/30/21 11/30/21 12/01/21 11:29 16:51 05:00 WBC RBC 2.97 L Hgb 8.0 L Hct 25.0 L MCV MCH 27 L MCHC RDW 20.8 H Plt Count Seg Neuts % (Manual) Lymphocytes % (Manual) Seg Neutrophils # Man Lymphocytes # (Manual) Monocytes # (Manual) PT INR D-Dimer ABG pH ABG pO2 ABG HCO3 ABG O2 Saturation ABG Base Excess ABG Hemoglobin Oxyhemoglobin Sodium Potassium Chloride Carbon Dioxide BUN Creatinine Glucose POC Glucose 123 H 114 H Lactic Acid Calcium Phosphorus Magnesium AST ALT Alkaline Phosphatase Lactate Dehydrogenase Troponin T C-Reactive Protein NT-Pro-B Natriuret Pep Total Protein Albumin LDL Cholesterol Direct Vitamin B12 Fluid Glucose Fluid Total Protein Vancomycin Trough Crossmatch 12/01/21 12/01/21 12/01/21 05:00 05:25 11:54 WBC RBC Hgb Hct MCV MCH MCHC RDW Plt Count Seg Neuts % (Manual) Lymphocytes % (Manual) Seg Neutrophils # Man Lymphocytes # (Manual) Monocytes # (Manual) PT INR D-Dimer ABG pH ABG pO2 ABG HCO3 ABG O2 Saturation ABG Base Excess ABG Hemoglobin Oxyhemoglobin Sodium 136 L Potassium Chloride Carbon Dioxide BUN 24 H Creatinine Glucose 117 H POC Glucose 108 H 107 H Lactic Acid Calcium 7.5 L Phosphorus Magnesium 1.60 L AST ALT Alkaline Phosphatase Lactate Dehydrogenase Troponin T C-Reactive Protein NT-Pro-B Natriuret Pep Total Protein Albumin LDL Cholesterol Direct Vitamin B12 Fluid Glucose Fluid Total Protein Vancomycin Trough Crossmatch 12/01/21 12/02/21 12/02/21 17:40 00:07 04:20 WBC RBC 2.92 L Hgb 7.7 L Hct 24.3 L MCV MCH 26 L MCHC RDW 20.5 H Plt Count Seg Neuts % (Manual) Lymphocytes % (Manual) Seg Neutrophils # Man Lymphocytes # (Manual) Monocytes # (Manual) PT INR D-Dimer ABG pH ABG pO2 ABG HCO3 ABG O2 Saturation ABG Base Excess ABG Hemoglobin Oxyhemoglobin Sodium Potassium Chloride Carbon Dioxide BUN Creatinine Glucose POC Glucose 123 H 110 H Lactic Acid Calcium Phosphorus Magnesium AST ALT Alkaline Phosphatase Lactate Dehydrogenase Troponin T C-Reactive Protein NT-Pro-B Natriuret Pep Total Protein Albumin LDL Cholesterol Direct Vitamin B12 Fluid Glucose Fluid Total Protein Vancomycin Trough Crossmatch 12/02/21 12/02/21 12/02/21 04:20 11:17 18:20 WBC RBC Hgb Hct MCV MCH MCHC RDW Plt Count Seg Neuts % (Manual) Lymphocytes % (Manual) Seg Neutrophils # Man Lymphocytes # (Manual) Monocytes # (Manual) PT INR D-Dimer ABG pH ABG pO2 ABG HCO3 ABG O2 Saturation ABG Base Excess ABG Hemoglobin Oxyhemoglobin Sodium 135 L Potassium Chloride Carbon Dioxide BUN 26 H Creatinine Glucose 121 H POC Glucose 117 H 113 H Lactic Acid Calcium 7.4 L Phosphorus Magnesium AST ALT Alkaline Phosphatase Lactate Dehydrogenase Troponin T C-Reactive Protein NT-Pro-B Natriuret Pep Total Protein Albumin LDL Cholesterol Direct Vitamin B12 Fluid Glucose Fluid Total Protein Vancomycin Trough Crossmatch 12/03/21 12/03/21 12/03/21 00:12 04:00 04:00 WBC RBC 2.99 L Hgb 7.8 L Hct 24.6 L MCV MCH 26 L MCHC RDW 20.2 H Plt Count Seg Neuts % (Manual) Lymphocytes % (Manual) Seg Neutrophils # Man Lymphocytes # (Manual) Monocytes # (Manual) PT INR D-Dimer ABG pH ABG pO2 ABG HCO3 ABG O2 Saturation ABG Base Excess ABG Hemoglobin Oxyhemoglobin Sodium 136 L Potassium Chloride Carbon Dioxide BUN 27 H Creatinine Glucose 133 H POC Glucose 121 H Lactic Acid Calcium 7.5 L Phosphorus Magnesium AST ALT Alkaline Phosphatase Lactate Dehydrogenase Troponin T C-Reactive Protein NT-Pro-B Natriuret Pep Total Protein Albumin LDL Cholesterol Direct Vitamin B12 Fluid Glucose Fluid Total Protein Vancomycin Trough Crossmatch 12/03/21 12/03/21 12/03/21 06:30 11:13 16:00 WBC RBC Hgb Hct MCV MCH MCHC RDW Plt Count Seg Neuts % (Manual) Lymphocytes % (Manual) Seg Neutrophils # Man Lymphocytes # (Manual) Monocytes # (Manual) PT INR D-Dimer ABG pH ABG pO2 ABG HCO3 ABG O2 Saturation ABG Base Excess ABG Hemoglobin Oxyhemoglobin Sodium Potassium Chloride Carbon Dioxide BUN Creatinine Glucose POC Glucose 129 H 125 H 125 H Lactic Acid Calcium Phosphorus Magnesium AST ALT Alkaline Phosphatase Lactate Dehydrogenase Troponin T C-Reactive Protein NT-Pro-B Natriuret Pep Total Protein Albumin LDL Cholesterol Direct Vitamin B12 Fluid Glucose Fluid Total Protein Vancomycin Trough Crossmatch 12/03/21 12/04/21 12/04/21 23:32 04:00 05:36 WBC RBC Hgb Hct MCV MCH MCHC RDW Plt Count Seg Neuts % (Manual) Lymphocytes % (Manual) Seg Neutrophils # Man Lymphocytes # (Manual) Monocytes # (Manual) PT INR D-Dimer ABG pH ABG pO2 ABG HCO3 ABG O2 Saturation ABG Base Excess ABG Hemoglobin Oxyhemoglobin Sodium Potassium 3.5 L Chloride Carbon Dioxide BUN 26 H Creatinine 0.5 L Glucose 151 H POC Glucose 133 H 142 H Lactic Acid Calcium 8.3 L Phosphorus Magnesium AST ALT Alkaline Phosphatase Lactate Dehydrogenase Troponin T C-Reactive Protein NT-Pro-B Natriuret Pep Total Protein Albumin LDL Cholesterol Direct Vitamin B12 Fluid Glucose Fluid Total Protein Vancomycin Trough Crossmatch 12/04/21 12/04/21 12/05/21 11:24 15:58 04:36 WBC RBC Hgb Hct MCV MCH MCHC RDW Plt Count Seg Neuts % (Manual) Lymphocytes % (Manual) Seg Neutrophils # Man Lymphocytes # (Manual) Monocytes # (Manual) PT INR D-Dimer ABG pH ABG pO2 ABG HCO3 ABG O2 Saturation ABG Base Excess ABG Hemoglobin Oxyhemoglobin Sodium Potassium Chloride Carbon Dioxide BUN 21 H Creatinine 0.5 L Glucose 119 H POC Glucose 130 H 111 H Lactic Acid Calcium 8.3 L Phosphorus Magnesium AST ALT Alkaline Phosphatase Lactate Dehydrogenase Troponin T C-Reactive Protein NT-Pro-B Natriuret Pep Total Protein Albumin LDL Cholesterol Direct Vitamin B12 Fluid Glucose Fluid Total Protein Vancomycin Trough Crossmatch 12/05/21 12/05/21 12/05/21 05:15 10:40 11:12 WBC RBC 2.98 L Hgb 8.1 L Hct 24.6 L MCV MCH 27 L MCHC RDW 20.8 H Plt Count Seg Neuts % (Manual) Lymphocytes % (Manual) Seg Neutrophils # Man Lymphocytes # (Manual) Monocytes # (Manual) PT INR D-Dimer ABG pH ABG pO2 ABG HCO3 ABG O2 Saturation ABG Base Excess ABG Hemoglobin Oxyhemoglobin Sodium Potassium Chloride Carbon Dioxide BUN Creatinine Glucose POC Glucose 107 H 110 H Lactic Acid Calcium Phosphorus Magnesium AST ALT Alkaline Phosphatase Lactate Dehydrogenase Troponin T C-Reactive Protein NT-Pro-B Natriuret Pep Total Protein Albumin LDL Cholesterol Direct Vitamin B12 Fluid Glucose Fluid Total Protein Vancomycin Trough Crossmatch 12/05/21 12/06/21 12/06/21 23:39 04:25 04:25 WBC RBC 2.95 L Hgb 7.9 L Hct 24.7 L MCV MCH 27 L MCHC RDW 20.9 H Plt Count Seg Neuts % (Manual) Lymphocytes % (Manual) Seg Neutrophils # Man Lymphocytes # (Manual) Monocytes # (Manual) PT INR D-Dimer ABG pH ABG pO2 ABG HCO3 ABG O2 Saturation ABG Base Excess ABG Hemoglobin Oxyhemoglobin Sodium Potassium Chloride Carbon Dioxide BUN 22 H Creatinine 0.5 L Glucose 136 H POC Glucose 118 H Lactic Acid Calcium 8.2 L Phosphorus Magnesium AST ALT Alkaline Phosphatase Lactate Dehydrogenase Troponin T C-Reactive Protein NT-Pro-B Natriuret Pep Total Protein Albumin LDL Cholesterol Direct Vitamin B12 Fluid Glucose Fluid Total Protein Vancomycin Trough Crossmatch 12/06/21 12/06/21 12/07/21 05:28 11:27 04:00 WBC RBC Hgb 7.2 L Hct 21.8 L MCV MCH MCHC RDW Plt Count Seg Neuts % (Manual) Lymphocytes % (Manual) Seg Neutrophils # Man Lymphocytes # (Manual) Monocytes # (Manual) PT INR D-Dimer ABG pH ABG pO2 ABG HCO3 ABG O2 Saturation ABG Base Excess ABG Hemoglobin Oxyhemoglobin Sodium Potassium Chloride Carbon Dioxide BUN Creatinine Glucose POC Glucose 142 H 126 H Lactic Acid Calcium Phosphorus Magnesium AST ALT Alkaline Phosphatase Lactate Dehydrogenase Troponin T C-Reactive Protein NT-Pro-B Natriuret Pep Total Protein Albumin LDL Cholesterol Direct Vitamin B12 Fluid Glucose Fluid Total Protein Vancomycin Trough Crossmatch 12/07/21 12/07/21 12/07/21 04:00 05:30 11:12 WBC RBC Hgb Hct MCV MCH MCHC RDW Plt Count Seg Neuts % (Manual) Lymphocytes % (Manual) Seg Neutrophils # Man Lymphocytes # (Manual) Monocytes # (Manual) PT INR D-Dimer ABG pH ABG pO2 ABG HCO3 ABG O2 Saturation ABG Base Excess ABG Hemoglobin Oxyhemoglobin Sodium Potassium Chloride Carbon Dioxide BUN 22 H Creatinine Glucose 119 H POC Glucose 121 H 124 H Lactic Acid Calcium 8.0 L Phosphorus Magnesium AST ALT Alkaline Phosphatase Lactate Dehydrogenase Troponin T C-Reactive Protein NT-Pro-B Natriuret Pep Total Protein Albumin LDL Cholesterol Direct Vitamin B12 Fluid Glucose Fluid Total Protein Vancomycin Trough Crossmatch 12/08/21 12/08/21 12/08/21 04:00 04:00 05:39 WBC RBC 2.81 L Hgb 7.7 L Hct 23.5 L MCV MCH MCHC RDW 21.2 H Plt Count Seg Neuts % (Manual) Lymphocytes % (Manual) Seg Neutrophils # Man Lymphocytes # (Manual) Monocytes # (Manual) PT INR D-Dimer ABG pH ABG pO2 ABG HCO3 ABG O2 Saturation ABG Base Excess ABG Hemoglobin Oxyhemoglobin Sodium 135 L Potassium Chloride Carbon Dioxide BUN 23 H Creatinine Glucose 109 H POC Glucose 112 H Lactic Acid Calcium Phosphorus Magnesium AST ALT Alkaline Phosphatase Lactate Dehydrogenase Troponin T C-Reactive Protein NT-Pro-B Natriuret Pep Total Protein Albumin LDL Cholesterol Direct Vitamin B12 Fluid Glucose Fluid Total Protein Vancomycin Trough Crossmatch 12/08/21 12/09/21 12/09/21 11:03 04:20 04:20 WBC RBC 2.67 L Hgb 7.6 L Hct 22.1 L MCV MCH MCHC RDW 20.8 H Plt Count Seg Neuts % (Manual) Lymphocytes % (Manual) Seg Neutrophils # Man Lymphocytes # (Manual) Monocytes # (Manual) PT INR D-Dimer ABG pH ABG pO2 ABG HCO3 ABG O2 Saturation ABG Base Excess ABG Hemoglobin Oxyhemoglobin Sodium 135 L Potassium Chloride 97.8 L Carbon Dioxide BUN 26 H Creatinine Glucose 119 H POC Glucose 108 H Lactic Acid Calcium 7.7 L Phosphorus Magnesium AST ALT Alkaline Phosphatase Lactate Dehydrogenase Troponin T C-Reactive Protein NT-Pro-B Natriuret Pep Total Protein Albumin LDL Cholesterol Direct Vitamin B12 Fluid Glucose Fluid Total Protein Vancomycin Trough Crossmatch 12/09/21 12/10/21 12/10/21 11:26 04:33 11:12 WBC RBC Hgb Hct MCV MCH MCHC RDW Plt Count Seg Neuts % (Manual) Lymphocytes % (Manual) Seg Neutrophils # Man Lymphocytes # (Manual) Monocytes # (Manual) PT INR D-Dimer ABG pH ABG pO2 ABG HCO3 ABG O2 Saturation ABG Base Excess ABG Hemoglobin Oxyhemoglobin Sodium 136 L Potassium Chloride Carbon Dioxide BUN 27 H Creatinine Glucose 117 H POC Glucose 110 H 117 H Lactic Acid Calcium 8.2 L Phosphorus Magnesium AST ALT Alkaline Phosphatase Lactate Dehydrogenase Troponin T C-Reactive Protein NT-Pro-B Natriuret Pep Total Protein Albumin LDL Cholesterol Direct Vitamin B12 Fluid Glucose Fluid Total Protein Vancomycin Trough Crossmatch 12/10/21 12/10/21 12/11/21 16:02 23:31 04:35 WBC RBC 2.57 L Hgb 7.0 L Hct 21.4 L MCV MCH 27 L MCHC RDW 21.1 H Plt Count Seg Neuts % (Manual) Lymphocytes % (Manual) Seg Neutrophils # Man Lymphocytes # (Manual) Monocytes # (Manual) PT INR D-Dimer ABG pH ABG pO2 ABG HCO3 ABG O2 Saturation ABG Base Excess ABG Hemoglobin Oxyhemoglobin Sodium Potassium Chloride Carbon Dioxide BUN Creatinine Glucose POC Glucose 137 H 111 H Lactic Acid Calcium Phosphorus Magnesium AST ALT Alkaline Phosphatase Lactate Dehydrogenase Troponin T C-Reactive Protein NT-Pro-B Natriuret Pep Total Protein Albumin LDL Cholesterol Direct Vitamin B12 Fluid Glucose Fluid Total Protein Vancomycin Trough Crossmatch 12/11/21 12/11/21 12/11/21 04:35 12:46 16:07 WBC RBC Hgb Hct MCV MCH MCHC RDW Plt Count Seg Neuts % (Manual) Lymphocytes % (Manual) Seg Neutrophils # Man Lymphocytes # (Manual) Monocytes # (Manual) PT INR D-Dimer ABG pH ABG pO2 ABG HCO3 ABG O2 Saturation ABG Base Excess ABG Hemoglobin Oxyhemoglobin Sodium 136 L Potassium Chloride Carbon Dioxide BUN 27 H Creatinine Glucose 112 H POC Glucose 115 H 111 H Lactic Acid Calcium 7.6 L Phosphorus Magnesium AST ALT Alkaline Phosphatase Lactate Dehydrogenase Troponin T C-Reactive Protein NT-Pro-B Natriuret Pep Total Protein Albumin LDL Cholesterol Direct Vitamin B12 Fluid Glucose Fluid Total Protein Vancomycin Trough Crossmatch 12/11/21 12/12/21 12/12/21 23:42 04:30 04:30 WBC RBC 2.60 L Hgb 7.1 L Hct 21.5 L MCV MCH 27 L MCHC RDW 20.3 H Plt Count Seg Neuts % (Manual) Lymphocytes % (Manual) Seg Neutrophils # Man Lymphocytes # (Manual) Monocytes # (Manual) PT INR D-Dimer ABG pH ABG pO2 ABG HCO3 ABG O2 Saturation ABG Base Excess ABG Hemoglobin Oxyhemoglobin Sodium 135 L Potassium Chloride 97.9 L Carbon Dioxide BUN 26 H Creatinine 0.5 L Glucose 138 H POC Glucose 115 H Lactic Acid Calcium 8.2 L Phosphorus Magnesium AST ALT Alkaline Phosphatase Lactate Dehydrogenase Troponin T C-Reactive Protein NT-Pro-B Natriuret Pep Total Protein Albumin LDL Cholesterol Direct Vitamin B12 Fluid Glucose Fluid Total Protein Vancomycin Trough Crossmatch 12/12/21 12/12/21 12/12/21 04:30 05:10 11:51 WBC RBC Hgb Hct MCV MCH MCHC RDW Plt Count Seg Neuts % (Manual) Lymphocytes % (Manual) Seg Neutrophils # Man Lymphocytes # (Manual) Monocytes # (Manual) PT INR D-Dimer ABG pH ABG pO2 ABG HCO3 ABG O2 Saturation ABG Base Excess ABG Hemoglobin Oxyhemoglobin Sodium Potassium Chloride Carbon Dioxide BUN Creatinine Glucose POC Glucose 119 H 119 H Lactic Acid Calcium Phosphorus Magnesium AST ALT Alkaline Phosphatase Lactate Dehydrogenase Troponin T C-Reactive Protein NT-Pro-B Natriuret Pep Total Protein Albumin LDL Cholesterol Direct Vitamin B12 Fluid Glucose Fluid Total Protein Vancomycin Trough Crossmatch See Detail 12/13/21 12/13/21 12/13/21 00:52 04:00 04:00 WBC RBC 2.73 L Hgb 7.4 L Hct 22.8 L MCV MCH 27 L MCHC RDW 20.5 H Plt Count Seg Neuts % (Manual) Lymphocytes % (Manual) Seg Neutrophils # Man Lymphocytes # (Manual) Monocytes # (Manual) PT INR D-Dimer ABG pH ABG pO2 ABG HCO3 ABG O2 Saturation ABG Base Excess ABG Hemoglobin Oxyhemoglobin Sodium 134 L Potassium Chloride 96.7 L Carbon Dioxide BUN 23 H Creatinine 0.5 L Glucose 131 H POC Glucose 131 H Lactic Acid Calcium 8.1 L Phosphorus Magnesium AST ALT Alkaline Phosphatase Lactate Dehydrogenase Troponin T C-Reactive Protein NT-Pro-B Natriuret Pep Total Protein Albumin LDL Cholesterol Direct Vitamin B12 Fluid Glucose Fluid Total Protein Vancomycin Trough Crossmatch 12/13/21 12/13/21 12/13/21 05:23 12:11 17:18 WBC RBC Hgb Hct MCV MCH MCHC RDW Plt Count Seg Neuts % (Manual) Lymphocytes % (Manual) Seg Neutrophils # Man Lymphocytes # (Manual) Monocytes # (Manual) PT INR D-Dimer ABG pH ABG pO2 ABG HCO3 ABG O2 Saturation ABG Base Excess ABG Hemoglobin Oxyhemoglobin Sodium Potassium Chloride Carbon Dioxide BUN Creatinine Glucose POC Glucose 121 H 143 H 148 H Lactic Acid Calcium Phosphorus Magnesium AST ALT Alkaline Phosphatase Lactate Dehydrogenase Troponin T C-Reactive Protein NT-Pro-B Natriuret Pep Total Protein Albumin LDL Cholesterol Direct Vitamin B12 Fluid Glucose Fluid Total Protein Vancomycin Trough Crossmatch 12/14/21 12/14/21 12/14/21 00:54 04:20 04:20 WBC RBC 2.39 L Hgb 6.5 L Hct 20.3 L MCV MCH 27 L MCHC RDW 20.3 H Plt Count Seg Neuts % (Manual) Lymphocytes % (Manual) Seg Neutrophils # Man Lymphocytes # (Manual) Monocytes # (Manual) PT INR D-Dimer ABG pH ABG pO2 ABG HCO3 ABG O2 Saturation ABG Base Excess ABG Hemoglobin Oxyhemoglobin Sodium 130 L Potassium Chloride 93.5 L Carbon Dioxide BUN 25 H Creatinine Glucose 123 H POC Glucose 123 H Lactic Acid Calcium 8.0 L Phosphorus Magnesium AST ALT Alkaline Phosphatase Lactate Dehydrogenase Troponin T C-Reactive Protein NT-Pro-B Natriuret Pep Total Protein Albumin LDL Cholesterol Direct Vitamin B12 Fluid Glucose Fluid Total Protein Vancomycin Trough Crossmatch 12/14/21 12/14/21 12/14/21 05:06 08:17 10:30 WBC RBC Hgb Hct MCV MCH MCHC RDW Plt Count Seg Neuts % (Manual) Lymphocytes % (Manual) Seg Neutrophils # Man Lymphocytes # (Manual) Monocytes # (Manual) PT INR D-Dimer ABG pH ABG pO2 ABG HCO3 ABG O2 Saturation ABG Base Excess ABG Hemoglobin Oxyhemoglobin Sodium Potassium Chloride Carbon Dioxide BUN Creatinine Glucose POC Glucose 131 H 119 H Lactic Acid Calcium Phosphorus Magnesium AST ALT Alkaline Phosphatase Lactate Dehydrogenase Troponin T C-Reactive Protein NT-Pro-B Natriuret Pep Total Protein Albumin LDL Cholesterol Direct Vitamin B12 Fluid Glucose Fluid Total Protein Vancomycin Trough Crossmatch See Detail 12/14/21 12/14/21 12/14/21 12:15 16:37 23:27 WBC RBC Hgb Hct MCV MCH MCHC RDW Plt Count Seg Neuts % (Manual) Lymphocytes % (Manual) Seg Neutrophils # Man Lymphocytes # (Manual) Monocytes # (Manual) PT INR D-Dimer ABG pH ABG pO2 ABG HCO3 ABG O2 Saturation ABG Base Excess ABG Hemoglobin Oxyhemoglobin Sodium Potassium Chloride Carbon Dioxide BUN Creatinine Glucose POC Glucose 147 H 141 H 130 H Lactic Acid Calcium Phosphorus Magnesium AST ALT Alkaline Phosphatase Lactate Dehydrogenase Troponin T C-Reactive Protein NT-Pro-B Natriuret Pep Total Protein Albumin LDL Cholesterol Direct Vitamin B12 Fluid Glucose Fluid Total Protein Vancomycin Trough Crossmatch 12/15/21 12/15/21 12/15/21 05:00 07:00 07:00 WBC 12.3 H RBC 3.27 L Hgb 8.8 L Hct 27.5 L D MCV MCH 27 L MCHC RDW 19.0 H Plt Count Seg Neuts % (Manual) Lymphocytes % (Manual) Seg Neutrophils # Man Lymphocytes # (Manual) Monocytes # (Manual) PT INR D-Dimer ABG pH ABG pO2 ABG HCO3 ABG O2 Saturation ABG Base Excess ABG Hemoglobin Oxyhemoglobin Sodium 134 L Potassium Chloride 95.7 L Carbon Dioxide BUN 28 H Creatinine Glucose 129 H POC Glucose 129 H Lactic Acid Calcium 8.2 L Phosphorus Magnesium AST ALT Alkaline Phosphatase Lactate Dehydrogenase Troponin T C-Reactive Protein NT-Pro-B Natriuret Pep Total Protein Albumin LDL Cholesterol Direct Vitamin B12 Fluid Glucose Fluid Total Protein Vancomycin Trough Crossmatch 12/15/21 12/15/21 12/15/21 11:18 16:00 23:39 WBC RBC Hgb Hct MCV MCH MCHC RDW Plt Count Seg Neuts % (Manual) Lymphocytes % (Manual) Seg Neutrophils # Man Lymphocytes # (Manual) Monocytes # (Manual) PT INR D-Dimer ABG pH ABG pO2 ABG HCO3 ABG O2 Saturation ABG Base Excess ABG Hemoglobin Oxyhemoglobin Sodium Potassium Chloride Carbon Dioxide BUN Creatinine Glucose POC Glucose 139 H 137 H 146 H Lactic Acid Calcium Phosphorus Magnesium AST ALT Alkaline Phosphatase Lactate Dehydrogenase Troponin T C-Reactive Protein NT-Pro-B Natriuret Pep Total Protein Albumin LDL Cholesterol Direct Vitamin B12 Fluid Glucose Fluid Total Protein Vancomycin Trough Crossmatch 12/16/21 12/16/21 12/16/21 05:24 10:21 10:21 WBC 15.3 H RBC 3.24 L Hgb 8.9 L Hct 27.7 L MCV MCH MCHC RDW 19.0 H Plt Count Seg Neuts % (Manual) Lymphocytes % (Manual) Seg Neutrophils # Man Lymphocytes # (Manual) Monocytes # (Manual) PT INR D-Dimer ABG pH ABG pO2 ABG HCO3 ABG O2 Saturation ABG Base Excess ABG Hemoglobin Oxyhemoglobin Sodium 131 L Potassium 3.5 L Chloride 92.7 L Carbon Dioxide BUN 36 H Creatinine Glucose 160 H POC Glucose 121 H Lactic Acid Calcium Phosphorus Magnesium 1.60 L AST ALT Alkaline Phosphatase Lactate Dehydrogenase Troponin T C-Reactive Protein NT-Pro-B Natriuret Pep Total Protein Albumin LDL Cholesterol Direct Vitamin B12 Fluid Glucose Fluid Total Protein Vancomycin Trough Crossmatch 12/16/21 12/16/21 12/16/21 11:21 18:28 20:52 WBC RBC Hgb Hct MCV MCH MCHC RDW Plt Count Seg Neuts % (Manual) Lymphocytes % (Manual) Seg Neutrophils # Man Lymphocytes # (Manual) Monocytes # (Manual) PT INR D-Dimer ABG pH 7.479 H ABG pO2 79.3 L ABG HCO3 27.3 H ABG O2 Saturation ABG Base Excess 3.6 H ABG Hemoglobin 9.1 L Oxyhemoglobin 94.9 L Sodium Potassium Chloride Carbon Dioxide BUN Creatinine Glucose POC Glucose 153 H 132 H Lactic Acid Calcium Phosphorus Magnesium AST ALT Alkaline Phosphatase Lactate Dehydrogenase Troponin T C-Reactive Protein NT-Pro-B Natriuret Pep Total Protein Albumin LDL Cholesterol Direct Vitamin B12 Fluid Glucose Fluid Total Protein Vancomycin Trough Crossmatch 12/16/21 12/17/21 12/17/21 23:30 04:25 04:25 WBC 12.3 H RBC 2.16 L Hgb 6.0 L Hct 18.1 L* D MCV MCH MCHC RDW 19.4 H Plt Count Seg Neuts % (Manual) Lymphocytes % (Manual) Seg Neutrophils # Man Lymphocytes # (Manual) Monocytes # (Manual) PT INR D-Dimer ABG pH ABG pO2 ABG HCO3 ABG O2 Saturation ABG Base Excess ABG Hemoglobin Oxyhemoglobin Sodium 132 L Potassium 3.2 L Chloride 112.0 H Carbon Dioxide BUN 32 H Creatinine Glucose 122 H POC Glucose 137 H Lactic Acid Calcium 6.8 L D Phosphorus Magnesium AST ALT Alkaline Phosphatase Lactate Dehydrogenase Troponin T C-Reactive Protein NT-Pro-B Natriuret Pep Total Protein Albumin LDL Cholesterol Direct Vitamin B12 Fluid Glucose Fluid Total Protein Vancomycin Trough Crossmatch 12/17/21 12/17/21 12/17/21 05:30 11:49 14:45 WBC RBC Hgb 9.7 L D Hct MCV MCH MCHC RDW Plt Count Seg Neuts % (Manual) Lymphocytes % (Manual) Seg Neutrophils # Man Lymphocytes # (Manual) Monocytes # (Manual) PT INR D-Dimer ABG pH ABG pO2 ABG HCO3 ABG O2 Saturation ABG Base Excess ABG Hemoglobin Oxyhemoglobin Sodium Potassium Chloride Carbon Dioxide BUN Creatinine Glucose POC Glucose 137 H 143 H Lactic Acid Calcium Phosphorus Magnesium AST ALT Alkaline Phosphatase Lactate Dehydrogenase Troponin T C-Reactive Protein NT-Pro-B Natriuret Pep Total Protein Albumin LDL Cholesterol Direct Vitamin B12 Fluid Glucose Fluid Total Protein Vancomycin Trough Crossmatch 12/17/21 12/18/21 12/18/21 17:01 05:04 05:04 WBC 13.8 H RBC 3.44 L Hgb 9.9 L Hct 28.8 L MCV MCH MCHC RDW 18.1 H Plt Count Seg Neuts % (Manual) Lymphocytes % (Manual) Seg Neutrophils # Man Lymphocytes # (Manual) Monocytes # (Manual) PT INR D-Dimer ABG pH ABG pO2 ABG HCO3 ABG O2 Saturation ABG Base Excess ABG Hemoglobin Oxyhemoglobin Sodium 132 L Potassium Chloride 97.4 L Carbon Dioxide BUN 38 H Creatinine Glucose 134 H POC Glucose 132 H Lactic Acid Calcium Phosphorus Magnesium AST ALT Alkaline Phosphatase Lactate Dehydrogenase Troponin T C-Reactive Protein NT-Pro-B Natriuret Pep Total Protein Albumin LDL Cholesterol Direct Vitamin B12 Fluid Glucose Fluid Total Protein Vancomycin Trough Crossmatch 12/18/21 12/18/21 12/18/21 05:28 10:57 16:27 WBC RBC Hgb Hct MCV MCH MCHC RDW Plt Count Seg Neuts % (Manual) Lymphocytes % (Manual) Seg Neutrophils # Man Lymphocytes # (Manual) Monocytes # (Manual) PT INR D-Dimer ABG pH ABG pO2 ABG HCO3 ABG O2 Saturation ABG Base Excess ABG Hemoglobin Oxyhemoglobin Sodium Potassium Chloride Carbon Dioxide BUN Creatinine Glucose POC Glucose 118 H 132 H 130 H Lactic Acid Calcium Phosphorus Magnesium AST ALT Alkaline Phosphatase Lactate Dehydrogenase Troponin T C-Reactive Protein NT-Pro-B Natriuret Pep Total Protein Albumin LDL Cholesterol Direct Vitamin B12 Fluid Glucose Fluid Total Protein Vancomycin Trough Crossmatch 12/19/21 12/19/21 12/19/21 00:02 04:41 04:41 WBC 16.0 H RBC 3.45 L Hgb 9.7 L Hct 29.1 L MCV MCH MCHC RDW 17.8 H Plt Count Seg Neuts % (Manual) Lymphocytes % (Manual) Seg Neutrophils # Man Lymphocytes # (Manual) Monocytes # (Manual) PT INR D-Dimer ABG pH ABG pO2 ABG HCO3 ABG O2 Saturation ABG Base Excess ABG Hemoglobin Oxyhemoglobin Sodium 133 L Potassium Chloride 97.9 L Carbon Dioxide BUN 36 H Creatinine 0.5 L Glucose 126 H POC Glucose 127 H Lactic Acid Calcium 8.3 L Phosphorus Magnesium AST ALT Alkaline Phosphatase Lactate Dehydrogenase Troponin T C-Reactive Protein NT-Pro-B Natriuret Pep Total Protein Albumin LDL Cholesterol Direct Vitamin B12 Fluid Glucose Fluid Total Protein Vancomycin Trough Crossmatch 12/19/21 12/19/21 12/19/21 05:26 12:20 16:43 WBC RBC Hgb Hct MCV MCH MCHC RDW Plt Count Seg Neuts % (Manual) Lymphocytes % (Manual) Seg Neutrophils # Man Lymphocytes # (Manual) Monocytes # (Manual) PT INR D-Dimer ABG pH ABG pO2 ABG HCO3 ABG O2 Saturation ABG Base Excess ABG Hemoglobin Oxyhemoglobin Sodium Potassium Chloride Carbon Dioxide BUN Creatinine Glucose POC Glucose 119 H 145 H 126 H Lactic Acid Calcium Phosphorus Magnesium AST ALT Alkaline Phosphatase Lactate Dehydrogenase Troponin T C-Reactive Protein NT-Pro-B Natriuret Pep Total Protein Albumin LDL Cholesterol Direct Vitamin B12 Fluid Glucose Fluid Total Protein Vancomycin Trough Crossmatch 12/19/21 12/20/21 12/20/21 23:30 04:54 04:54 WBC 12.3 H RBC 3.54 L Hgb 10.0 L Hct 29.5 L MCV MCH MCHC RDW 17.8 H Plt Count Seg Neuts % (Manual) 88.0 H Lymphocytes % (Manual) 6.0 L Seg Neutrophils # Man 10.8 H Lymphocytes # (Manual) 0.7 L Monocytes # (Manual) PT INR D-Dimer ABG pH ABG pO2 ABG HCO3 ABG O2 Saturation ABG Base Excess ABG Hemoglobin Oxyhemoglobin Sodium 131 L Potassium Chloride 96.2 L Carbon Dioxide BUN 36 H Creatinine 0.5 L Glucose 130 H POC Glucose 117 H Lactic Acid Calcium Phosphorus Magnesium AST ALT Alkaline Phosphatase Lactate Dehydrogenase Troponin T C-Reactive Protein NT-Pro-B Natriuret Pep Total Protein Albumin LDL Cholesterol Direct Vitamin B12 Fluid Glucose Fluid Total Protein Vancomycin Trough Crossmatch 12/20/21 12/20/21 12/20/21 05:20 11:51 17:30 WBC RBC Hgb Hct MCV MCH MCHC RDW Plt Count Seg Neuts % (Manual) Lymphocytes % (Manual) Seg Neutrophils # Man Lymphocytes # (Manual) Monocytes # (Manual) PT INR D-Dimer ABG pH ABG pO2 ABG HCO3 ABG O2 Saturation ABG Base Excess ABG Hemoglobin Oxyhemoglobin Sodium Potassium Chloride Carbon Dioxide BUN Creatinine Glucose POC Glucose 126 H 119 H 127 H Lactic Acid Calcium Phosphorus Magnesium AST ALT Alkaline Phosphatase Lactate Dehydrogenase Troponin T C-Reactive Protein NT-Pro-B Natriuret Pep Total Protein Albumin LDL Cholesterol Direct Vitamin B12 Fluid Glucose Fluid Total Protein Vancomycin Trough Crossmatch 12/21/21 12/21/21 12/21/21 00:45 04:21 04:21 WBC RBC 3.47 L Hgb 9.4 L Hct 29.2 L MCV MCH 27 L MCHC RDW 18.1 H Plt Count Seg Neuts % (Manual) Lymphocytes % (Manual) Seg Neutrophils # Man Lymphocytes # (Manual) Monocytes # (Manual) PT INR D-Dimer ABG pH ABG pO2 ABG HCO3 ABG O2 Saturation ABG Base Excess ABG Hemoglobin Oxyhemoglobin Sodium 134 L Potassium Chloride Carbon Dioxide BUN 35 H Creatinine 0.5 L Glucose 122 H POC Glucose 125 H Lactic Acid Calcium 8.2 L Phosphorus Magnesium AST ALT Alkaline Phosphatase Lactate Dehydrogenase Troponin T C-Reactive Protein NT-Pro-B Natriuret Pep Total Protein Albumin LDL Cholesterol Direct Vitamin B12 Fluid Glucose Fluid Total Protein Vancomycin Trough Crossmatch 12/21/21 12/21/21 12/21/21 05:38 11:29 16:16 WBC RBC Hgb Hct MCV MCH MCHC RDW Plt Count Seg Neuts % (Manual) Lymphocytes % (Manual) Seg Neutrophils # Man Lymphocytes # (Manual) Monocytes # (Manual) PT INR D-Dimer ABG pH ABG pO2 ABG HCO3 ABG O2 Saturation ABG Base Excess ABG Hemoglobin Oxyhemoglobin Sodium Potassium Chloride Carbon Dioxide BUN Creatinine Glucose POC Glucose 127 H 121 H 113 H Lactic Acid Calcium Phosphorus Magnesium AST ALT Alkaline Phosphatase Lactate Dehydrogenase Troponin T C-Reactive Protein NT-Pro-B Natriuret Pep Total Protein Albumin LDL Cholesterol Direct Vitamin B12 Fluid Glucose Fluid Total Protein Vancomycin Trough Crossmatch 12/22/21 12/22/21 12/23/21 04:58 04:58 06:40 WBC 11.5 H RBC 3.43 L Hgb 9.8 L Hct 28.7 L MCV MCH MCHC RDW 18.5 H 17.9 H Plt Count Seg Neuts % (Manual) Lymphocytes % (Manual) Seg Neutrophils # Man Lymphocytes # (Manual) Monocytes # (Manual) PT INR D-Dimer ABG pH ABG pO2 ABG HCO3 ABG O2 Saturation ABG Base Excess ABG Hemoglobin Oxyhemoglobin Sodium 130 L Potassium Chloride 97.8 L Carbon Dioxide BUN 31 H Creatinine 0.5 L Glucose 122 H POC Glucose Lactic Acid Calcium 7.9 L Phosphorus Magnesium AST ALT Alkaline Phosphatase Lactate Dehydrogenase Troponin T C-Reactive Protein NT-Pro-B Natriuret Pep Total Protein Albumin LDL Cholesterol Direct Vitamin B12 Fluid Glucose Fluid Total Protein Vancomycin Trough Crossmatch 12/23/21 12/23/21 12/24/21 06:40 23:25 04:24 WBC 11.7 H RBC Hgb 9.8 L Hct MCV MCH 26 L MCHC RDW 18.1 H Plt Count Seg Neuts % (Manual) Lymphocytes % (Manual) Seg Neutrophils # Man Lymphocytes # (Manual) Monocytes # (Manual) PT INR D-Dimer ABG pH ABG pO2 ABG HCO3 ABG O2 Saturation ABG Base Excess ABG Hemoglobin Oxyhemoglobin Sodium 136 L Potassium Chloride Carbon Dioxide BUN 27 H Creatinine 0.4 L Glucose 107 H POC Glucose 110 H Lactic Acid Calcium 8.1 L Phosphorus Magnesium AST ALT Alkaline Phosphatase Lactate Dehydrogenase Troponin T C-Reactive Protein NT-Pro-B Natriuret Pep Total Protein Albumin LDL Cholesterol Direct Vitamin B12 Fluid Glucose Fluid Total Protein Vancomycin Trough Crossmatch 12/24/21 12/24/21 12/24/21 04:24 11:08 15:45 WBC RBC Hgb Hct MCV MCH MCHC RDW Plt Count Seg Neuts % (Manual) Lymphocytes % (Manual) Seg Neutrophils # Man Lymphocytes # (Manual) Monocytes # (Manual) PT INR D-Dimer ABG pH ABG pO2 ABG HCO3 ABG O2 Saturation ABG Base Excess ABG Hemoglobin Oxyhemoglobin Sodium 132 L Potassium Chloride Carbon Dioxide BUN 27 H Creatinine 0.3 L Glucose 108 H POC Glucose 116 H 107 H Lactic Acid Calcium Phosphorus Magnesium AST ALT Alkaline Phosphatase Lactate Dehydrogenase Troponin T C-Reactive Protein NT-Pro-B Natriuret Pep Total Protein Albumin LDL Cholesterol Direct Vitamin B12 Fluid Glucose Fluid Total Protein Vancomycin Trough Crossmatch 12/24/21 12/25/21 12/25/21 23:43 05:29 11:48 WBC RBC Hgb Hct MCV MCH MCHC RDW Plt Count Seg Neuts % (Manual) Lymphocytes % (Manual) Seg Neutrophils # Man Lymphocytes # (Manual) Monocytes # (Manual) PT INR D-Dimer ABG pH ABG pO2 ABG HCO3 ABG O2 Saturation ABG Base Excess ABG Hemoglobin Oxyhemoglobin Sodium Potassium Chloride Carbon Dioxide BUN Creatinine Glucose POC Glucose 123 H 107 H 119 H Lactic Acid Calcium Phosphorus Magnesium AST ALT Alkaline Phosphatase Lactate Dehydrogenase Troponin T C-Reactive Protein NT-Pro-B Natriuret Pep Total Protein Albumin LDL Cholesterol Direct Vitamin B12 Fluid Glucose Fluid Total Protein Vancomycin Trough Crossmatch 12/26/21 12/26/21 12/26/21 00:06 05:56 07:51 WBC 11.4 H RBC 3.40 L Hgb 9.3 L Hct 28.3 L MCV MCH 27 L MCHC RDW 18.2 H Plt Count Seg Neuts % (Manual) Lymphocytes % (Manual) Seg Neutrophils # Man Lymphocytes # (Manual) Monocytes # (Manual) PT INR D-Dimer ABG pH ABG pO2 ABG HCO3 ABG O2 Saturation ABG Base Excess ABG Hemoglobin Oxyhemoglobin Sodium Potassium Chloride Carbon Dioxide BUN Creatinine Glucose POC Glucose 133 H 107 H Lactic Acid Calcium Phosphorus Magnesium AST ALT Alkaline Phosphatase Lactate Dehydrogenase Troponin T C-Reactive Protein NT-Pro-B Natriuret Pep Total Protein Albumin LDL Cholesterol Direct Vitamin B12 Fluid Glucose Fluid Total Protein Vancomycin Trough Crossmatch 12/26/21 12/26/21 12/26/21 07:51 11:43 17:06 WBC RBC Hgb Hct MCV MCH MCHC RDW Plt Count Seg Neuts % (Manual) Lymphocytes % (Manual) Seg Neutrophils # Man Lymphocytes # (Manual) Monocytes # (Manual) PT INR D-Dimer ABG pH ABG pO2 ABG HCO3 ABG O2 Saturation ABG Base Excess ABG Hemoglobin Oxyhemoglobin Sodium 136 L Potassium Chloride Carbon Dioxide BUN 25 H Creatinine 0.3 L Glucose 131 H POC Glucose 119 H 128 H Lactic Acid Calcium Phosphorus Magnesium AST ALT Alkaline Phosphatase Lactate Dehydrogenase Troponin T C-Reactive Protein NT-Pro-B Natriuret Pep Total Protein Albumin LDL Cholesterol Direct Vitamin B12 Fluid Glucose Fluid Total Protein Vancomycin Trough Crossmatch 12/28/21 12/28/21 12/29/21 09:05 09:05 04:40 WBC RBC 3.19 L Hgb 8.9 L Hct 26.4 L MCV MCH 27 L MCHC RDW 18.4 H 17.9 H Plt Count Seg Neuts % (Manual) Lymphocytes % (Manual) Seg Neutrophils # Man Lymphocytes # (Manual) Monocytes # (Manual) PT INR D-Dimer ABG pH ABG pO2 ABG HCO3 ABG O2 Saturation ABG Base Excess ABG Hemoglobin Oxyhemoglobin Sodium 135 L Potassium Chloride 97.8 L Carbon Dioxide BUN 18 H Creatinine 0.3 L Glucose POC Glucose Lactic Acid Calcium Phosphorus Magnesium AST ALT Alkaline Phosphatase Lactate Dehydrogenase Troponin T C-Reactive Protein NT-Pro-B Natriuret Pep Total Protein Albumin LDL Cholesterol Direct Vitamin B12 Fluid Glucose Fluid Total Protein Vancomycin Trough Crossmatch 12/29/21 12/29/21 12/30/21 04:40 12:47 04:05 WBC RBC 3.29 L Hgb 8.7 L Hct 27.6 L MCV MCH 27 L MCHC RDW 17.6 H Plt Count Seg Neuts % (Manual) Lymphocytes % (Manual) Seg Neutrophils # Man Lymphocytes # (Manual) Monocytes # (Manual) PT INR D-Dimer ABG pH ABG pO2 ABG HCO3 ABG O2 Saturation ABG Base Excess ABG Hemoglobin Oxyhemoglobin Sodium 136 L Potassium Chloride Carbon Dioxide BUN Creatinine 0.3 L Glucose POC Glucose 67 L Lactic Acid Calcium 8.3 L Phosphorus Magnesium AST ALT Alkaline Phosphatase Lactate Dehydrogenase Troponin T C-Reactive Protein NT-Pro-B Natriuret Pep Total Protein Albumin LDL Cholesterol Direct Vitamin B12 Fluid Glucose Fluid Total Protein Vancomycin Trough Crossmatch 12/30/21 12/31/21 12/31/21 04:05 00:07 04:00 WBC RBC 3.05 L Hgb 8.5 L Hct 25.5 L MCV MCH MCHC RDW 18.2 H Plt Count Seg Neuts % (Manual) Lymphocytes % (Manual) Seg Neutrophils # Man Lymphocytes # (Manual) Monocytes # (Manual) PT INR D-Dimer ABG pH ABG pO2 ABG HCO3 ABG O2 Saturation ABG Base Excess ABG Hemoglobin Oxyhemoglobin Sodium 136 L Potassium 3.5 L Chloride Carbon Dioxide BUN Creatinine 0.4 L Glucose POC Glucose 139 H Lactic Acid Calcium Phosphorus Magnesium 1.50 L AST ALT Alkaline Phosphatase Lactate Dehydrogenase Troponin T C-Reactive Protein NT-Pro-B Natriuret Pep Total Protein Albumin LDL Cholesterol Direct Vitamin B12 Fluid Glucose Fluid Total Protein Vancomycin Trough Crossmatch 12/31/21 12/31/21 12/31/21 04:00 04:52 11:23 WBC RBC Hgb Hct MCV MCH MCHC RDW Plt Count Seg Neuts % (Manual) Lymphocytes % (Manual) Seg Neutrophils # Man Lymphocytes # (Manual) Monocytes # (Manual) PT INR D-Dimer ABG pH ABG pO2 ABG HCO3 ABG O2 Saturation ABG Base Excess ABG Hemoglobin Oxyhemoglobin Sodium Potassium Chloride Carbon Dioxide BUN 19 H Creatinine 0.4 L Glucose 116 H POC Glucose 121 H 116 H Lactic Acid Calcium Phosphorus Magnesium AST ALT Alkaline Phosphatase Lactate Dehydrogenase Troponin T C-Reactive Protein NT-Pro-B Natriuret Pep Total Protein Albumin LDL Cholesterol Direct Vitamin B12 Fluid Glucose Fluid Total Protein Vancomycin Trough Crossmatch 12/31/21 01/01/22 01/01/22 17:42 04:31 04:31 WBC RBC 2.83 L Hgb 7.7 L Hct 23.2 L MCV MCH 27 L MCHC RDW 18.3 H Plt Count Seg Neuts % (Manual) Lymphocytes % (Manual) Seg Neutrophils # Man Lymphocytes # (Manual) Monocytes # (Manual) PT INR D-Dimer ABG pH ABG pO2 ABG HCO3 ABG O2 Saturation ABG Base Excess ABG Hemoglobin Oxyhemoglobin Sodium 135 L Potassium Chloride 97.7 L Carbon Dioxide BUN 21 H Creatinine 0.5 L Glucose 127 H POC Glucose 107 H Lactic Acid Calcium 8.0 L Phosphorus Magnesium AST ALT Alkaline Phosphatase Lactate Dehydrogenase Troponin T C-Reactive Protein NT-Pro-B Natriuret Pep Total Protein Albumin LDL Cholesterol Direct Vitamin B12 Fluid Glucose Fluid Total Protein Vancomycin Trough Crossmatch 01/01/22 01/01/22 01/01/22 05:24 11:25 18:11 WBC RBC Hgb Hct MCV MCH MCHC RDW Plt Count Seg Neuts % (Manual) Lymphocytes % (Manual) Seg Neutrophils # Man Lymphocytes # (Manual) Monocytes # (Manual) PT INR D-Dimer ABG pH ABG pO2 ABG HCO3 ABG O2 Saturation ABG Base Excess ABG Hemoglobin Oxyhemoglobin Sodium Potassium Chloride Carbon Dioxide BUN Creatinine Glucose POC Glucose 124 H 140 H 144 H Lactic Acid Calcium Phosphorus Magnesium AST ALT Alkaline Phosphatase Lactate Dehydrogenase Troponin T C-Reactive Protein NT-Pro-B Natriuret Pep Total Protein Albumin LDL Cholesterol Direct Vitamin B12 Fluid Glucose Fluid Total Protein Vancomycin Trough Crossmatch 01/01/22 01/02/22 01/02/22 23:26 04:01 04:01 WBC RBC 2.57 L Hgb 7.1 L Hct 21.5 L MCV MCH MCHC RDW 18.1 H Plt Count Seg Neuts % (Manual) Lymphocytes % (Manual) Seg Neutrophils # Man Lymphocytes # (Manual) Monocytes # (Manual) PT INR D-Dimer ABG pH ABG pO2 ABG HCO3 ABG O2 Saturation ABG Base Excess ABG Hemoglobin Oxyhemoglobin Sodium 131 L Potassium 3.5 L Chloride 94.8 L Carbon Dioxide BUN 27 H Creatinine Glucose 121 H POC Glucose 121 H Lactic Acid Calcium Phosphorus Magnesium AST ALT Alkaline Phosphatase Lactate Dehydrogenase Troponin T C-Reactive Protein NT-Pro-B Natriuret Pep Total Protein Albumin LDL Cholesterol Direct Vitamin B12 Fluid Glucose Fluid Total Protein Vancomycin Trough Crossmatch 01/02/22 01/02/22 01/02/22 05:30 11:10 16:08 WBC RBC Hgb Hct MCV MCH MCHC RDW Plt Count Seg Neuts % (Manual) Lymphocytes % (Manual) Seg Neutrophils # Man Lymphocytes # (Manual) Monocytes # (Manual) PT INR D-Dimer ABG pH ABG pO2 ABG HCO3 ABG O2 Saturation ABG Base Excess ABG Hemoglobin Oxyhemoglobin Sodium Potassium Chloride Carbon Dioxide BUN Creatinine Glucose POC Glucose 124 H 117 H 130 H Lactic Acid Calcium Phosphorus Magnesium AST ALT Alkaline Phosphatase Lactate Dehydrogenase Troponin T C-Reactive Protein NT-Pro-B Natriuret Pep Total Protein Albumin LDL Cholesterol Direct Vitamin B12 Fluid Glucose Fluid Total Protein Vancomycin Trough Crossmatch 01/02/22 01/02/22 01/03/22 17:30 23:26 04:53 WBC RBC 2.82 L Hgb 7.7 L Hct 23.4 L MCV MCH 27 L MCHC RDW 18.0 H Plt Count Seg Neuts % (Manual) Lymphocytes % (Manual) Seg Neutrophils # Man Lymphocytes # (Manual) Monocytes # (Manual) PT INR D-Dimer ABG pH ABG pO2 ABG HCO3 ABG O2 Saturation ABG Base Excess ABG Hemoglobin Oxyhemoglobin Sodium Potassium Chloride Carbon Dioxide BUN Creatinine Glucose POC Glucose 114 H Lactic Acid Calcium Phosphorus Magnesium AST ALT Alkaline Phosphatase Lactate Dehydrogenase Troponin T C-Reactive Protein NT-Pro-B Natriuret Pep Total Protein Albumin LDL Cholesterol Direct Vitamin B12 Fluid Glucose Fluid Total Protein Vancomycin Trough 22.8 H Crossmatch 01/03/22 01/03/22 01/03/22 04:53 06:23 17:35 WBC RBC Hgb Hct MCV MCH MCHC RDW Plt Count Seg Neuts % (Manual) Lymphocytes % (Manual) Seg Neutrophils # Man Lymphocytes # (Manual) Monocytes # (Manual) PT INR D-Dimer ABG pH ABG pO2 ABG HCO3 ABG O2 Saturation ABG Base Excess ABG Hemoglobin Oxyhemoglobin Sodium 133 L Potassium Chloride 96.2 L Carbon Dioxide BUN 30 H Creatinine Glucose 107 H POC Glucose 122 H 107 H Lactic Acid Calcium Phosphorus Magnesium AST ALT Alkaline Phosphatase Lactate Dehydrogenase Troponin T C-Reactive Protein NT-Pro-B Natriuret Pep Total Protein Albumin LDL Cholesterol Direct Vitamin B12 Fluid Glucose Fluid Total Protein Vancomycin Trough Crossmatch 01/04/22 01/04/22 01/04/22 04:00 12:32 16:45 WBC RBC Hgb Hct MCV MCH MCHC RDW Plt Count Seg Neuts % (Manual) Lymphocytes % (Manual) Seg Neutrophils # Man Lymphocytes # (Manual) Monocytes # (Manual) PT INR D-Dimer ABG pH ABG pO2 ABG HCO3 ABG O2 Saturation ABG Base Excess ABG Hemoglobin Oxyhemoglobin Sodium 132 L Potassium Chloride 92.8 L Carbon Dioxide BUN 30 H Creatinine Glucose 115 H POC Glucose 111 H 111 H Lactic Acid Calcium Phosphorus Magnesium 1.60 L AST ALT Alkaline Phosphatase Lactate Dehydrogenase Troponin T C-Reactive Protein NT-Pro-B Natriuret Pep Total Protein Albumin LDL Cholesterol Direct Vitamin B12 Fluid Glucose Fluid Total Protein Vancomycin Trough Crossmatch 01/05/22 01/05/22 01/05/22 04:30 04:30 17:04 WBC RBC 3.11 L Hgb 8.4 L Hct 25.5 L MCV MCH 27 L MCHC RDW 17.6 H Plt Count Seg Neuts % (Manual) Lymphocytes % (Manual) Seg Neutrophils # Man Lymphocytes # (Manual) Monocytes # (Manual) PT INR D-Dimer ABG pH ABG pO2 ABG HCO3 ABG O2 Saturation ABG Base Excess ABG Hemoglobin Oxyhemoglobin Sodium 135 L Potassium Chloride 93.6 L Carbon Dioxide BUN 29 H Creatinine Glucose POC Glucose 67 L Lactic Acid Calcium Phosphorus Magnesium AST ALT Alkaline Phosphatase Lactate Dehydrogenase Troponin T C-Reactive Protein NT-Pro-B Natriuret Pep Total Protein Albumin LDL Cholesterol Direct Vitamin B12 Fluid Glucose Fluid Total Protein Vancomycin Trough Crossmatch 01/05/22 01/06/22 01/06/22 23:27 04:06 04:06 WBC RBC 2.89 L Hgb 7.7 L Hct 23.8 L MCV MCH 27 L MCHC RDW 18.0 H Plt Count Seg Neuts % (Manual) Lymphocytes % (Manual) Seg Neutrophils # Man Lymphocytes # (Manual) Monocytes # (Manual) PT 16.9 H INR 1.23 H D-Dimer ABG pH ABG pO2 ABG HCO3 ABG O2 Saturation ABG Base Excess ABG Hemoglobin Oxyhemoglobin Sodium Potassium Chloride Carbon Dioxide BUN Creatinine Glucose POC Glucose 110 H Lactic Acid Calcium Phosphorus Magnesium AST ALT Alkaline Phosphatase Lactate Dehydrogenase Troponin T C-Reactive Protein NT-Pro-B Natriuret Pep Total Protein Albumin LDL Cholesterol Direct Vitamin B12 Fluid Glucose Fluid Total Protein Vancomycin Trough Crossmatch 01/06/22 01/06/22 01/06/22 04:06 13:40 23:41 WBC RBC Hgb Hct MCV MCH MCHC RDW Plt Count Seg Neuts % (Manual) Lymphocytes % (Manual) Seg Neutrophils # Man Lymphocytes # (Manual) Monocytes # (Manual) PT INR D-Dimer ABG pH ABG pO2 ABG HCO3 ABG O2 Saturation ABG Base Excess ABG Hemoglobin Oxyhemoglobin Sodium 132 L Potassium Chloride 92.3 L Carbon Dioxide BUN 26 H Creatinine Glucose 111 H POC Glucose 120 H Lactic Acid Calcium Phosphorus Magnesium AST ALT Alkaline Phosphatase Lactate Dehydrogenase Troponin T C-Reactive Protein NT-Pro-B Natriuret Pep Total Protein Albumin LDL Cholesterol Direct Vitamin B12 Fluid Glucose 96 H Fluid Total Protein < 3.0 L Vancomycin Trough Crossmatch 01/07/22 01/07/22 01/07/22 05:20 11:30 17:00 WBC RBC Hgb Hct MCV MCH MCHC RDW Plt Count Seg Neuts % (Manual) Lymphocytes % (Manual) Seg Neutrophils # Man Lymphocytes # (Manual) Monocytes # (Manual) PT INR D-Dimer ABG pH ABG pO2 ABG HCO3 ABG O2 Saturation ABG Base Excess ABG Hemoglobin Oxyhemoglobin Sodium Potassium Chloride Carbon Dioxide BUN Creatinine Glucose POC Glucose 111 H 113 H 121 H Lactic Acid Calcium Phosphorus Magnesium AST ALT Alkaline Phosphatase Lactate Dehydrogenase Troponin T C-Reactive Protein NT-Pro-B Natriuret Pep Total Protein Albumin LDL Cholesterol Direct Vitamin B12 Fluid Glucose Fluid Total Protein Vancomycin Trough Crossmatch 01/07/22 01/08/22 01/08/22 23:41 11:26 16:23 WBC RBC Hgb Hct MCV MCH MCHC RDW Plt Count Seg Neuts % (Manual) Lymphocytes % (Manual) Seg Neutrophils # Man Lymphocytes # (Manual) Monocytes # (Manual) PT INR D-Dimer ABG pH ABG pO2 ABG HCO3 ABG O2 Saturation ABG Base Excess ABG Hemoglobin Oxyhemoglobin Sodium Potassium Chloride Carbon Dioxide BUN Creatinine Glucose POC Glucose 110 H 129 H 118 H Lactic Acid Calcium Phosphorus Magnesium AST ALT Alkaline Phosphatase Lactate Dehydrogenase Troponin T C-Reactive Protein NT-Pro-B Natriuret Pep Total Protein Albumin LDL Cholesterol Direct Vitamin B12 Fluid Glucose Fluid Total Protein Vancomycin Trough Crossmatch 01/09/22 01/10/22 01/10/22 18:13 00:27 04:00 WBC RBC Hgb Hct MCV MCH MCHC RDW Plt Count Seg Neuts % (Manual) Lymphocytes % (Manual) Seg Neutrophils # Man Lymphocytes # (Manual) Monocytes # (Manual) PT INR D-Dimer ABG pH ABG pO2 ABG HCO3 ABG O2 Saturation ABG Base Excess ABG Hemoglobin Oxyhemoglobin Sodium 133 L Potassium Chloride 92.6 L Carbon Dioxide 31 H BUN 29 H Creatinine 0.5 L Glucose 115 H POC Glucose 118 H 111 H Lactic Acid Calcium Phosphorus Magnesium AST ALT Alkaline Phosphatase Lactate Dehydrogenase Troponin T C-Reactive Protein NT-Pro-B Natriuret Pep Total Protein Albumin LDL Cholesterol Direct Vitamin B12 Fluid Glucose Fluid Total Protein Vancomycin Trough Crossmatch 01/10/22 01/11/22 01/11/22 05:47 05:10 11:14 WBC RBC Hgb Hct MCV MCH MCHC RDW Plt Count Seg Neuts % (Manual) Lymphocytes % (Manual) Seg Neutrophils # Man Lymphocytes # (Manual) Monocytes # (Manual) PT INR D-Dimer ABG pH ABG pO2 ABG HCO3 ABG O2 Saturation ABG Base Excess ABG Hemoglobin Oxyhemoglobin Sodium Potassium Chloride Carbon Dioxide BUN Creatinine Glucose POC Glucose 106 H 118 H 136 H Lactic Acid Calcium Phosphorus Magnesium AST ALT Alkaline Phosphatase Lactate Dehydrogenase Troponin T C-Reactive Protein NT-Pro-B Natriuret Pep Total Protein Albumin LDL Cholesterol Direct Vitamin B12 Fluid Glucose Fluid Total Protein Vancomycin Trough Crossmatch 01/11/22 01/11/22 01/12/22 17:14 23:52 05:39 WBC RBC Hgb Hct MCV MCH MCHC RDW Plt Count Seg Neuts % (Manual) Lymphocytes % (Manual) Seg Neutrophils # Man Lymphocytes # (Manual) Monocytes # (Manual) PT INR D-Dimer ABG pH ABG pO2 ABG HCO3 ABG O2 Saturation ABG Base Excess ABG Hemoglobin Oxyhemoglobin Sodium Potassium Chloride Carbon Dioxide BUN Creatinine Glucose POC Glucose 117 H 110 H 110 H Lactic Acid Calcium Phosphorus Magnesium AST ALT Alkaline Phosphatase Lactate Dehydrogenase Troponin T C-Reactive Protein NT-Pro-B Natriuret Pep Total Protein Albumin LDL Cholesterol Direct Vitamin B12 Fluid Glucose Fluid Total Protein Vancomycin Trough Crossmatch 01/13/22 01/13/22 01/14/22 11:15 17:21 05:33 WBC RBC Hgb Hct MCV MCH MCHC RDW Plt Count Seg Neuts % (Manual) Lymphocytes % (Manual) Seg Neutrophils # Man Lymphocytes # (Manual) Monocytes # (Manual) PT INR D-Dimer ABG pH ABG pO2 ABG HCO3 ABG O2 Saturation ABG Base Excess ABG Hemoglobin Oxyhemoglobin Sodium Potassium Chloride Carbon Dioxide BUN Creatinine Glucose POC Glucose 113 H 121 H 136 H Lactic Acid Calcium Phosphorus Magnesium AST ALT Alkaline Phosphatase Lactate Dehydrogenase Troponin T C-Reactive Protein NT-Pro-B Natriuret Pep Total Protein Albumin LDL Cholesterol Direct Vitamin B12 Fluid Glucose Fluid Total Protein Vancomycin Trough Crossmatch 01/14/22 01/15/22 01/15/22 11:28 00:13 05:24 WBC RBC Hgb Hct MCV MCH MCHC RDW Plt Count Seg Neuts % (Manual) Lymphocytes % (Manual) Seg Neutrophils # Man Lymphocytes # (Manual) Monocytes # (Manual) PT INR D-Dimer ABG pH ABG pO2 ABG HCO3 ABG O2 Saturation ABG Base Excess ABG Hemoglobin Oxyhemoglobin Sodium Potassium Chloride Carbon Dioxide BUN Creatinine Glucose POC Glucose 117 H 109 H 117 H Lactic Acid Calcium Phosphorus Magnesium AST ALT Alkaline Phosphatase Lactate Dehydrogenase Troponin T C-Reactive Protein NT-Pro-B Natriuret Pep Total Protein Albumin LDL Cholesterol Direct Vitamin B12 Fluid Glucose Fluid Total Protein Vancomycin Trough Crossmatch 01/15/22 01/15/22 Unknown Unknown WBC RBC 2.97 L Hgb 8.0 L Hct 24.3 L MCV MCH 27 L MCHC RDW 17.2 H Plt Count Seg Neuts % (Manual) Lymphocytes % (Manual) Seg Neutrophils # Man Lymphocytes # (Manual) Monocytes # (Manual) PT INR D-Dimer ABG pH ABG pO2 ABG HCO3 ABG O2 Saturation ABG Base Excess ABG Hemoglobin Oxyhemoglobin Sodium 131 L Potassium Chloride 93.1 L Carbon Dioxide BUN 27 H Creatinine Glucose 110 H POC Glucose Lactic Acid Calcium 8.3 L Phosphorus Magnesium AST ALT Alkaline Phosphatase Lactate Dehydrogenase Troponin T C-Reactive Protein NT-Pro-B Natriuret Pep Total Protein Albumin LDL Cholesterol Direct Vitamin B12 Fluid Glucose Fluid Total Protein Vancomycin Trough Crossmatch Chest x-ray: image reviewed (Right chest tube in place) Allied health notes reviewed: nursing
[2022-01-15] MEDS: SENNOSIDES ORAL LIQD 8.8 MG/5 ML ORAL LIQD FEEDTUBE SCH ×2 (14:31→21:09)
--- NOTE | 2022-01-15 15:07 | Progress Note ---
Assessment and Plan Assessment and plan: This is an 82-year-old female with DM, HTN , CHB s/p PPM, CAD s/p PCI and arthritis who presented to the emergency department on 11/04 for shortness of breath ongoing for the past 3 days, cough and according to family a fever of 102.2. Upon arrival of EMS patient was found to be tachypneic and hypoxic with SPO2 of 76% on room air which later improved to 88% on nonrebreather. Work-up in the emergency department included a CXR which showed bilateral interstitial pulmonary edema with bilateral pleural effusions and bibasilar opacities, leukocytosis and anemia with a hemoglobin of 6.1. Patient was admitted to the hospitalist service with acute anemia, acute hypoxic respiratory failure, bilateral pneumonia and COVID-19 PUI with consults to pulmonology, infectious disease and later cardiology. Patient was eventually intubated in the emergency department on 11/06. Hospital Course to date: 11/04/2021: Empiric therapy with iv levaquin/vancomycin. COVID PCR pending. Will consult ID. PCCM consulted, will follow recs. Hypotensive this AM, ordered bolus and fluids at 150 cc/hr. May require pressor support if bp does not improve. 11/05/2021: GBS on bcx +, currently on rocephin IV. Currently on bipap due to respiratory distress overnight. Worsening BL opacities on CXR. May be volume overload vs pneumonia. Unfortunately bp too low for lasix at this point. WIll continue levophed and bipap. Once able to tolerate, may do trial of albumin/lasix. Call attempt made to Niraj, no response. Will try again tomorrow to update. 11/06/2021: Decompensated overnight requiring intubation. CXR shows worsening interstitial infiltrates. Currenlty on dopamine, levophed, vasopressin. PICC line ordered. Advised RN to place gamble for I/O monitoring. Would benefit from diuresis but very volume overloaded. Prognosis guarded 11/08: Off sedation this am, remains unresponsive only grimace to pain. Hold all sedatives agents for now, patient is off pressors this am. Hypernatremia from today's lab- D5W X1bag, and low K repleted, repeat lab in the am. Severe constipation also noted from KUB, BR added. 11/09: Sudden SPO2 drop in the 60s this am. Patient was manually bagged and deep suctioned. Patient is currently stable on the vent, repeat CXR with no significant change. D/w CCM Mucomyst and brochodilator added. Patient mentation is unchanged, continue to hold off on sedative agents. Neurology consulted. 11/10: Acute DVT noted on bilateral lower extremity Doppler ultrasound therefore she was started on Lovenox treatment dose. Failed SBT. Hypernatremia and hyperchloremia noted, free water flush adjusted. 11/11: Patient noted to be febrile with increasing of the cytosis, UA/BC sent and CXR ordered. ID escalated antibiotics to cefepime. CXR demonstrated mucous plug, bedside bronchoscopy was performed and O ETT was changed over bougie from 6 cm to 7.5. Patient was noted to have a pneumothorax postprocedure and chest tube was placed. Family updated by [facility]. Free water flush increased and will add Jaswant supplementation. 11/12: Patient not noted to follow commands, hypernatremia worsen/persist, increasing free water flush, potassium and magnesium and phosphorus repleted. Hemoglobin noted to be 7./24.5 from 7.03/12 yesterday. We will continue to trend and monitor. Vent changes per [facility]. Repeat CXR showed no residual pneumothorax. Consider waterseal tomorrow. Given persistent leukocytosis antibiotics escalated to cefepime per ID. 11/13: Remains on cefepime and vancomycin, vent changes per [facility]. Anemia noted and given 1 unit PRBC. And beta-charleen held in setting of Levophed drip infusing. Remains on fentanyl drip. 11/14: Patient put on CPAP trial by [facility], will continue chest tube until after extubation. Will rest on assist control. CT brain was cancelled by hybrid derivatives trader and reordered. 11/15: Patient removed chest tube overnight. Will obtain cxr. remains on low dose levo. CTH completed with no acute findings. RT to place on CPAP. 11/16: Hypernatremia/hyperchloremia noted on the increase of day water flushes. Anemia noted and ordered PRBC. asked RT to place on cpap but not done yet 11/17: Patient remains on the vent, awake and following commands. H&H stable s/p 2units PRBCs. GI on consult, no intervention at this time. Will continue protonix gtt and serial H&H Q6hrs. Keep patient NPO for now, D5w added for hypernatremia and NPO status. Plan for IVC filter placement today by Vascular. 11/18: Patient is s/p IVC filter. H&H continue to trend down, hbg 6.1 this am, 1 unit of PRBCs ordered. Plan for possible EGD today by GI. Keep patient NPO, continue PPI drip and serial H&H Q6hrs. Electrolytes repleted, repeat lab in the am 11/19: S/p EGD- larger duodenal ulcer noted, see operative note. GI recommendations noted also noted. H&H stable this am. Keep patient on protonix gtt for now. Will keep patient NPO, continue IVF and serial H&H for now. Electrolytes repleted, repeat labs in the am 11/20: Very agitated and restless this am, fentanyl gtt resumed. Patient remains on protonix gtt, H&H remains stable. Will switch protonix gtt to IV BID, continue carafate and okay to resume meds at this time. Will F/u with GI to see if TF can be resumed. Gamble was reinserted overnight for retention. Electrolytes repleted, repeat in the am. Plan for possible PST today for possible extubation per CCM. 11/21: Patient is now on seroquel and patient's home buspar resumed. Patient more calm this morning, fentanyl gtt is off. H&H remains stable and patient is tolerating TF. Patient had a runs of Vtach/PVCs this am, BB added per Cardio. Continue daily PS and wean trial for possible extubation. 11/22: Back on fentanyl gtt overnight , RASS o to -1, following commands. Patient failed PST this am due to increased work of breathing and low SPO2, ABG pending. Patient is also with worsen pitting edema, lasix is still on hold. Will discuss with cardio and CCM to possibly resume lasix. 11/23: MARIA DEL CARMEN overnight. Patient failed PST again this am. Per CCM plan for possible trach and PEG, hold off on IV lasix for now. General surgery consulted and family is aware of possible Trach and PEG. 11/24: Trach/PEG pending this week, continue SBT/SAT as tolerated. No acute events reported overnight. 11/25: Patient was n.p.o. overnight and will remain n.p.o. tonight for trach/PEG tomorrow morning. She failed to support trial again. KUB obtained due to distended belly. 11/26: Patient scheduled for tracheostomy and PEG tube placement today, has been n.p.o. since midnight. No acute events reported overnight. [facility] ordered simethicone scheduled. 11/27: No acute events reported overnight, patient received trach/PEG yesterday. Has been on feedings since last night. Still awaiting LTAC placement. 11/28: Patient magnesium repleted, repeat a.m. labs, SBT 11/29: Patient complains of chest pain but ECG obtained which showed no acute findings, ordered troponin. Patient failed CPAP yesterday and was trialed again today. levophed was restarted but will aggressively wean 11/30: Patient failed SBT. Continue supportive care. Started gabapentin today 12/01: MARIA DEL CARMEN overnight. Continue daily PST. Case management to arrange possible placement 12/02: Report of dark stools overnight, patient is hemodynamically stable. H&H stable, patient is on PPI. Will continue to trend H&H. Continue daily PST as tolerated. Awaiting LTAC vs SNF placement. 12/03: Hypotensive overnight, requiring low dose pressors. S/p X3 days of gentle diurese. Will continue to monitor, wean off pressors as tolerated for MAP of 65. Patient Failed PST yesterday, case management to follow up with insurance for possible LTAC placement. Continue daily PST as tolerated. PT eval and treat ordered. 12/04: Increased agitation and anxiety overnight, remains on buspar and seroquel, trazadone added to promote rest. Patient is now working with PT, keep patient engage and awake during the day so she can rest at night. No BM for over 5 days, BR was adjusted. Patient did not tolerate PST again yesterday, continue daily PST as tolerated. Continue to titrate pressor for MAP above 65. Pending possible LTAC placement, case management to arrange. 12/05: Still not getting much rest overnight, will add melatonin for sleep. Continue to engage patient during the day and promote rest at night. TF was held due to concern for possible bleeding, H&H remains stable and stools normal this am. Resume TF and continue PPI and carafate. Remains on low dose levophed, titrate as tolerated. Continue daily PST. Possible LTAC placement, awaiting approval. 12/06: MARIA DEL CARMEN overnight. Patient rested overnight. Continue supportive measures. Daily PST as tolerated. Awaiting possible LTAC placement 12/07: MARIA DEL CARMEN overnight. Plan for Tpiece trial today. Continue current supportive measures. Possible LTAC placement 12/08: Patient placed on pressure support trial again today, started on Xanax, no acute events reported overnight. Awaiting insurance approval for LTAC. 12/09: Levophed discontinued, LTAC transfer denied, started on midodrine and Lasix, ultrasound chest pending, started on Xanax 0.[address] De León updated family at bedside today. Started on Dilaudid every 3 hours as needed. 12/10: Patient placed on CPAP trial this morning, no acute events reported overnight. Will order ultrasound-guided thoracentesis. 12/11: Patient had a thoracentesis today, will decrease Xanax dosage and continue midodrine and diuresing. Patient failed CPAP today. 12/12: Patient not tolerate CPAP trials today, no acute events reported overnight 12/13: No acute events overnight. continue PSV trials as tolerated. Daughter upd ated at bedside 12/14: Patient noted to be anemic today, ordered gastric occult. Patient seems to be oversedated therefore Xanax changed to as needed and fentanyl patch discontinued. We will continue to monitor hyponatremia. 12/15: MARIA DEL CARMEN overnight. s/p 1unit of PRBCs, H&H stable this am, no signs of any active bleeding. Continue daily PST as tolerated. Awaiting placement. 12/16: Hypertensive this am, Midodrine decreased. Continue daily PST. MARIA DEL CARMEN overnight 12/17: Patient Hgb dropped to 6 this am, no s/s of any active bleeding, VSS. Patient received 1unit of PRBC, will continue to trend H&H. Patient was pancultured and back on IV Abx due to persistent fevers yesterday. ID is also back on the case. Continue IV Abx per ID and f/u on cultures data for sensitivity. Patient also failed PST yesterday, continue daily PST as tolerated. Electrolytes repleted, repeat labs in the am. 12/18: Patient blood cultures is growing GPC 4 out 4 bottles. PICC line D/Rivas, patient is already on IV Abx-cefepine and Vanc and ID is following. Patient remains hemodynamically stable. Daily PST as tolerated adn PRN Benzo for anxiety. 12/19: MARIA DEL CARMEN overnight. Culture data noted, continue IV Abx per ID. Orders placed for repeat Bculture. Gamble D/C overnight, patient is voiding. Check bladder scan as needed for retention. Patient failed PST again today. Continue daily PST as tolerated. 12/20: Fevers improved, Cultures +MRSA, on Vanco per ID. Repeat 2D Echo to r/o endocarditis. Patient continue to fail PST, PEEP increased to 8 today. Continue pulmonary hygiene and vent wean per CCM. Sodium tab added for hyponatremia. 12/22: Patient on pressure support trial for approximately 4 hours today, midodrine dosage increased due to hypotension. Lasix discontinued. 12/23: Started on a.m. Seroquel dose, midodrine increased to 10 mg 3 times daily, 500 mL normal saline bolus. 12/24: Seroquel dose changed (25 every morning, 75 nightly). updated at bedside by Dr. De León. CPAP trials as tolerated. Continue vancomycin. Awaiting placement. 12/25: Continue CPAP as tolerated, added gasx for distention. Continue supportive care 12/26: Patient failed PSV this AM. no acute events overnight. 12/27: GI re-consulted due to abdominal distention. No acute events reported overnight. CPAP trials as tolerated. Dr. Mckenna will get a KUB to rule out possible obstruction. 12/28: KUB shows no acute process, CXR shows improvement. CPAP trials as tolerated. 12/29: CT Abd/pelvis noted with moderated bilateral pleural effusion, anasarca, and ascites. X1dose of IV lasix administered. D/w CCM and GI orders plan for thora and paracentesis by IR. Will also start patient on aldactone Qday. Patient is tolerating trickle feeds this am, continue TF and BR adjusted for constipation. Plan of care was discussed with patient and her at the bedside. Thorough discussion on patient's overall poor prognosis and that eddie ent will most likely be vent dependent. Patient's voiced understanding of the info given. All questions and concerns were voiced at this time. 12/30: Patient did not tolerate thoracentesis in IR yesterday due to change in LOC and hypoxia. Plan for possible bedside thoracentesis and paracentesis today. Patient remains afebrile. Patient required intermodal dispatcher IV abx therapy [id number] left, orders placed for a PICC. Patient remains with sign. Piting edema and anasarca, X1 does of PO Zaroxolyn and 2m of IV lasix given. Electrolytes repleted, repeat lab in the am. 12/31: Tolerated Rt. thoracentesis at the bedside yesterday, 1.4L removed. Patient remains stable on the vent this am, tolerating CPAP today PS dropped to 14. Recent CXR noted, left pleural effusion improved. Patient tolerated gentle diurese yesterday, good urine output reported. D/w CCM hold off on Left thoracentesis today, continue PO Aldactone and additonal zaroxolyn and IV lasix again today. F/u CXR in the am. 01/01: This am CXR noted with worsening bilateral pleural effusion. Patient is stable and tolerating PST this am, however PS is back up to 20 this am. BP is soft this am will hold off on IV diuretic for today, continue PO Aldactone. D/w CCM continue gentle diurese as tolerated. Will reassess in the am. Continue s upport care. 01/02: MARIA DEL CARMEN overnight. VSS this am, tolerating PST. X1dose of 25% IV Albumin following with 20mg IV Lasix today. Continue daily gentle diurese if hemodynamics tolerate it. Continue to monitor and replace electrolytes as needed 01/03: Abdominal distention and vomiting overnight, 600cc of gastric residual removed, TF held. KUB with no acute abnormality. Reglan added X2days, resume TF, and continue BR. Patient is tolerating PST this am. Hemodynamics remains stable, will continue gentle IV diurese. close monitoring to renal function and electrolytes. 01/04: Tolerating TF, nausea/vomiting resolved, last BM on 01/03. Continue Reglan X1 more day. Patient continue to tolerate PST. D/W CCM continue gentle diurese. F/U CXR in the am. Possible US thoracentesis tomorrow. 01/05: no acute events overnight. scheduled for thoracentesis today but procedure pushed to tomorrow. TF restarted and will be NPO post MN. 01/06: planned thoracentesis today. Working with CM for ltac/snf approval. 01/07: s/p thoracentesis 120 cc appears to have been removed. Pulm recommendations noted, agree with continued diuresis and weaning. Continued planning with CM for ltac/snf placement. 01/08: No new issues. Continue vent weaning per pulmonary. Continuing to work with CM for placement. 01/09: No new issues. Continue vent weaning per pulmonary. Continuing to work with CM for placement. Ordered BMP for tomorrow to check kidney function as patient is currently being diuresed. 01/10: No new issues. Continue vent weaning/diuresis as directed by pulmonary medicine.BMP demonstrates normal renal function and potassium. Sodium and Chloride consistent with prior labs. Will recheck BMP in 2 days. Placement continues to be an issue as patient has been denied at all facilities. Will reasses with CM on wednesday. 01/11: Emesis overnight. Do not suspect that she is obstructed as she had 2 BM reported. Will order Reglan prn, drop TF rate to goal of 30 cc/hr. Will continue to work on placement. 01/12: Per RN patient had reported that she was tired and did not want to persist in her current state of health. D/w patient Niraj at patient bedside and stated that I recommended the patient/family at least talk with hospice to get a better understanding of their care. He was agreeable. I spoke with Ms. Busby who will help set up referral for hospice service so that family can be educated and, if the patient chooses, can pursue this option. 01/13: Continue supportive care. Family discussing about hospice. Continue reinforcement and continue weaning as tolerated. Prognosis is guarded and poor. Patient is clinically stable to transfer to the next level of care has not required any escalation in management. Has been stable on the vent awake alert following commands. 01/14: [id number]. Considering abdominal distention tube feedings hold along with the fact that the patient vomited yesterday. Will obtain a CT abdomen and pelvis to further evaluate placement. Discussed with nursing staff. Awaiting to have a family conversation with the for goals of care discussion again. 01/15: Continue supportive care, tube feed was restarted yesterday and tolerated, will start on simethicone for gas control and management. Patient is clinically stable for all lower level of care and continued weaning from the ventilator to appropriate facility. Family still undecided about goals of care. We will also check labs intermittently. Assessment and Plan Neuro : Anxiety, chronic pain -Neurology consulted, appreciate recommendations -CT brain showed no acute events -EEG interpreted as abnormal record due to diffuse slowing noted throughout the recording, suggestive of encephalopathic process and/or drug effect, possibilities of postictal state cannot be totally excluded. Clinical correlation is in order -MRI brain not obtained-> patient has metal in her body -Repeat CT head with no acute findings -Reorientation as needed -Ammonia 42, B12 1823, TSH 1.5 -BuSpar, Seroquel, [place], gabapentin -prn xanax and Dilaudid Cardio: Acute Heart failure with reduced EF, h/o chronic heart block s/p PPM, HTN, CAD s/p PCI (2004), Moderate pulmonary HTN, cardiomyopathy -s/p vasopressor support with levophed -11/04 echocardiogram shows EF 30 to 35%, Moderate pulmonary HTN RVSP 49 -3/4 echo with 35-40% EF -Cardiology consulted, appreciate recommendations -Continue beta-charleen and statin therapy -Midodrine (titrate as needed) -Not on aspirin due to allergy -Blood pressure monitoring per protocol -As needed nitroglycerin Resp: Acute hypoxic respiratory failure secondary to bilateral pneumonia, bilateral pleural effusion. Right pneumothorax (resolved) -COVID-19 PCR negative -Intubated on 11/06 with 6.00 ETT at 18 at the lip and changed over bougie on 11/11-7.50 ETT at 20 at the lip -See RT notes for titration -PSV as tolerated -Surgery consult for trach -Received trach/PEG on 11/26 -S/p bedside bronchoscopy on 11/11 complicated by pneumothorax -S/p chest tube placement for right pneumothorax and dislodgment by patient on 11/15 -ABG/CXR per CCM -VAP bundle -Right chest wall ultrasound showed pleural effusion s/p chest tube -12/11 US thoracentesis removed 1L fluid -12/29 US thoracentesis removed 1.4L fluid -01/06 thoracentesis planned -SPO2 monitoring GI: S/p GI bleed, duodenal ulcer, transaminitis -GI consulted, appreciate recommendations-signed off -Nutrition consult for tube feeding, currently on nepro TF 45 cc/hr, dropped to 30 cc/hr due to concerns for emesis. -BR: Senokot -s/p peg 11/26 -H2 charleen -Carafate -24-hour +428 ml -10/2021 Gastric occult positive -> EGD-> duodenal ulcer -12/14 occult stool positive - reglan prn. : Urinary retention (resolved), hyponatremia, hypochloremia -Strict intake and output -Trend BMP ID: Septic shock (POA-resolved), bilateral pneumonia, MRSA bacteremia/pna -Infectious disease consulted, appreciate recommendations -COVID-19 PCR negative -Presented with fevers, leukocytosis and hypotension -11/04 blood cultures positive with a group B strep bacteremia 12/19 however repeat blood cultures on the with no growth to date -Echo showed no evidence of vegetation -repeat echo showed EF 35-40 % with no vegetations -ABX therapy: IV vancomycin for 4 weeks (12/16-01/26) -Monitor WBC and fever curve -Bedside bronchoscopy for mucous plug on CXR 11/11 -f/u blood cultures Heme: Acute DVT in the right external iliac vein, common femoral vein, superior aspect of femoral vein, Acute microcytic anemia -Evidenced on bilateral upper lower extremity ultrasound -S/p 7 unit PRBC -Trend CBC -Transfuse for hemoglobin less than 7 -heparin gtt dc d/t anemia -S/p IVC filter Endo: h/o DM and hypothyroidism -Continue home Synthroid -SSI -Accu-Cheks every 6 -Avoid hypoglycemia History Interval history: Patient seen and examined, still on the vent, although awake alert nonsedated, Tolerating diet no further vomiting. complained of chest pain today Hospitalist Physical - Physical exam Narrative exam: VITAL SIGNS: Reviewed. GENERAL: The patient appears normally developed, trach to vent vital signs as documented. Frail appearing elderly woman. HEAD: No signs of head trauma. EYES: Pupils are equal. Extraocular motions intact. EARS: Hearing grossly intact. MOUTH: Oropharynx is normal. NECK: No adenopathy, no JVD. Trach to vent CHEST: Bl rhonchi CARDIAC: Regular rate and rhythm. S1 and S2, without murmurs, gallops, or rubs. VASCULAR: No Edema. Peripheral pulses normal and equal in all extremities. ABDOMEN: Soft, non tender and mildly distended. No rebound or guarding, and no masses palpated. Bowel Sounds normal. MUSCULOSKELETAL: Good range of motion of all major joints. Extremities without clubbing, cyanosis or edema. NEUROLOGIC EXAM: Alert and oriented x 3. no focal sensory or strength deficits. PSYCHIATRIC: anxious SKIN: detail exam as documented in skin assessment - Constitutional Vitals: Temp Pulse Resp BP Pulse Ox 98.2 F 61 18 136/61 99 01/15/22 11:49 01/15/22 13:00 01/15/22 13:00 01/15/22 13:00 01/15/22 13:00 General appearance: Present: no acute distress, other (Trach and on the vent) HEART Score - HEART Score Troponin: Troponin T 0.045 ng/mL (0.00-0.029) H 11/29/21 20:15 Results - Labs CBC & Chem 7: 01/15/22 Unknown 01/15/22 Unknown Labs: Laboratory Last Values WBC 10.2 K/mm3 (4.5-11.0) 01/15/22 Unknown RBC 2.97 M/mm3 (3.65-5.03) L 01/15/22 Unknown Hgb 8.0 gm/dl (10.1-14.3) L 01/15/22 Unknown Hct 24.3 % (30.3-42.9) L 01/15/22 Unknown MCV 82 fl (79-97) 01/15/22 Unknown MCH 27 pg (28-32) L 01/15/22 Unknown MCHC 33 % (30-34) 01/15/22 Unknown RDW 17.2 % (13.2-15.2) H 01/15/22 Unknown Plt Count 276 K/mm3 (140-440) 01/15/22 Unknown Lymph % (Auto) 24.2 % (13.4-35.0) 01/15/22 Unknown [place] % (Auto) 6.8 % (0.0-7.3) 01/15/22 Unknown Eos % (Auto) 3.5 % (0.0-4.3) 01/15/22 Unknown Baso % (Auto) 0.5 % (0.0-1.8) 01/15/22 Unknown Lymph # (Auto) 2.5 K/mm3 (1.2-5.4) 01/15/22 Unknown [place] # (Auto) 0.7 K/mm3 (0.0-0.8) 01/15/22 Unknown Eos # (Auto) 0.4 K/mm3 (0.0-0.4) 01/15/22 Unknown Baso # (Auto) 0.1 K/mm3 (0.0-0.1) 01/15/22 Unknown Add Manual Diff Complete 12/20/21 04:54 Total Counted 100 12/20/21 04:54 Seg Neutrophils % 65.0 % (40.0-70.0) 01/15/22 Unknown Seg Neuts % (Manual) 88.0 % (40.0-70.0) H 12/20/21 04:54 Band Neutrophils % 0 % 12/20/21 04:54 Lymphocytes % (Manual) 6.0 % (13.4-35.0) L 12/20/21 04:54 Reactive Lymphs % (Man) 0 % 12/20/21 04:54 Monocytes % (Manual) 5.0 % (0.0-7.3) 12/20/21 04:54 Eosinophils % (Manual) 1.0 % (0.0-4.3) 12/20/21 04:54 Basophils % (Manual) 0 % (0.0-1.8) 12/20/21 04:54 Metamyelocytes % 0 % 12/20/21 04:54 Myelocytes % 0 % 12/20/21 04:54 Promyelocytes % 0 % 12/20/21 04:54 Blast Cells % 0 % 12/20/21 04:54 Nucleated RBC % Not Reportable 12/20/21 04:54 Seg Neutrophils # 6.6 K/mm3 (1.8-7.7) 01/15/22 Unknown Seg Neutrophils # Man 10.8 K/mm3 (1.8-7.7) H 12/20/21 04:54 Band Neutrophils # 0.0 K/mm3 12/20/21 04:54 Lymphocytes # (Manual) 0.7 K/mm3 (1.2-5.4) L 12/20/21 04:54 Abs React Lymphs (Man) 0.0 K/mm3 12/20/21 04:54 Monocytes # (Manual) 0.6 K/mm3 (0.0-0.8) 12/20/21 04:54 Eosinophils # (Manual) 0.1 K/mm3 (0.0-0.4) 12/20/21 04:54 Basophils # (Manual) 0.0 K/mm3 (0.0-0.1) 12/20/21 04:54 Metamyelocytes # 0.0 K/mm3 12/20/21 04:54 Myelocytes # 0.0 K/mm3 12/20/21 04:54 Promyelocytes # 0.0 K/mm3 12/20/21 04:54 Blast Cells # 0.0 K/mm3 12/20/21 04:54 WBC Morphology Not Reportable 12/20/21 04:54 Hypersegmented Neuts Not Reportable 12/20/21 04:54 Hyposegmented Neuts Not Reportable 12/20/21 04:54 Hypogranular Neuts Not Reportable 12/20/21 04:54 Smudge Cells Not Reportable 12/20/21 04:54 Toxic Granulation Not Reportable 12/20/21 04:54 Toxic Vacuolation Not Reportable 12/20/21 04:54 Dohle Bodies Not Reportable 12/20/21 04:54 Pelger-Huet Anomaly Not Reportable 12/20/21 04:54 Irina Rods Not Reportable 12/20/21 04:54 Platelet Estimate Consistent w auto 12/20/21 04:54 Clumped Platelets Not Reportable 12/20/21 04:54 Plt Clumps, EDTA Not Reportable 12/20/21 04:54 Large Platelets Not Reportable 12/20/21 04:54 Giant Platelets Not Reportable 12/20/21 04:54 Platelet Satelliting Not Reportable 12/20/21 04:54 Plt Morphology Comment Not Reportable 12/20/21 04:54 RBC Morphology Not Reportable 12/20/21 04:54 Dimorphic RBCs Not Reportable 12/20/21 04:54 Polychromasia Not Reportable 12/20/21 04:54 Hypochromasia Not Reportable 12/20/21 04:54 Poikilocytosis Not Reportable 12/20/21 04:54 Anisocytosis 1+ 12/20/21 04:54 Microcytosis Not Reportable 12/20/21 04:54 Macrocytosis Not Reportable 12/20/21 04:54 Spherocytes Not Reportable 12/20/21 04:54 Pappenheimer Bodies Not Reportable 12/20/21 04:54 Sickle Cells Not Reportable 12/20/21 04:54 Target Cells Not Reportable 12/20/21 04:54 Tear Drop Cells Not Reportable 12/20/21 04:54 Ovalocytes Not Reportable 12/20/21 04:54 Helmet Cells Not Reportable 12/20/21 04:54 Odonnell-Blair Bodies Not Reportable 12/20/21 04:54 [place] Rings Not Reportable 12/20/21 04:54 Malcom Cells Not Reportable 12/20/21 04:54 Bite Cells Not Reportable 12/20/21 04:54 Crenated Cell Not Reportable 12/20/21 04:54 Elliptocytes Not Reportable 12/20/21 04:54 Acanthocytes (Spur) Not Reportable 12/20/21 04:54 Rouleaux Not Reportable 12/20/21 04:54 Hemoglobin C Crystals Not Reportable 12/20/21 04:54 Schistocytes Not Reportable 12/20/21 04:54 Malaria parasites Not Reportable 12/20/21 04:54 Godfrey Bodies Not Reportable 12/20/21 04:54 Hem Pathologist Commnt No 12/20/21 04:54 PT 16.9 Sec. (12.2-14.9) H 01/06/22 04:06 INR 1.23 (0.87-1.13) H 01/06/22 04:06 APTT 29.2 Sec. (24.2-36.6) 11/26/21 05:00 D-Dimer 2655.00 ng/mlDDU (0-234) H 11/11/21 04:28 ABG pH 7.479 pH Units (7.350-7.450) H 12/16/21 20:52 ABG pCO2 37.5 mm Hg 12/16/21 20:52 ABG pO2 79.3 mm Hg (80.0-90.0) L 12/16/21 20:52 ABG HCO3 27.3 mmol/L (20.0-26.0) H 12/16/21 20:52 ABG O2 Saturation 97.0 % (95.0-99.0) 12/16/21 20:52 ABG O2 Content 12.3 (0.0-44) 12/16/21 20:52 ABG Base Excess 3.6 mmol/L (-2.0-3.0) H 12/16/21 20:52 ABG Hemoglobin 9.1 gm/dl (12.0-16.0) L 12/16/21 20:52 ABG Carboxyhemoglobin 1.6 % (0.0-5.0) 12/16/21 20:52 ABG Methemoglobin 0.5 % (0.0-1.5) 12/16/21 20:52 Oxyhemoglobin 94.9 % (95.0-99.0) L 12/16/21 20:52 FiO2 30 % 12/16/21 20:52 Sodium 131 mmol/L (137-145) L 01/15/22 Unknown Potassium 3.7 mmol/L (3.6-5.0) 01/15/22 Unknown Chloride 93.1 mmol/L (98-107) L 01/15/22 Unknown Carbon Dioxide 30 mmol/L (22-30) 01/15/22 Unknown Anion Gap 12 mmol/L 01/15/22 Unknown BUN 27 mg/dL (7-17) H 01/15/22 Unknown Creatinine 0.6 mg/dL (0.6-1.2) 01/15/22 Unknown Estimated GFR > 60 ml/min 01/15/22 Unknown BUN/Creatinine Ratio 45 % 01/15/22 Unknown Glucose 110 mg/dL (65-100) H 01/15/22 Unknown POC Glucose 117 mg/dL (70-105) H 01/15/22 05:24 Lactic Acid 3.70 mmol/L (0.7-2.0) H* 11/03/21 22:32 Calcium 8.3 mg/dL (8.4-10.2) L 01/15/22 Unknown Phosphorus 3.80 mg/dL (2.5-4.5) 01/05/22 04:30 Magnesium 2.00 mg/dL (1.7-2.3) 01/05/22 04:30 Ferritin 52.6 ng/mL (10.0-200.0) 11/05/21 06:11 Total Bilirubin 0.50 mg/dL (0.1-1.2) 11/17/21 05:56 Direct Bilirubin < 0.2 mg/dL (0-0.2) 11/11/21 04:28 Indirect Bilirubin 0.1 mg/dL 11/11/21 04:28 AST 36 units/L (5-40) 11/17/21 05:56 ALT 47 units/L (7-56) 11/17/21 05:56 Alkaline Phosphatase 107 units/L (35-129) 11/17/21 05:56 Ammonia 42.0 umol/L (25-60) 11/10/21 14:08 Lactate Dehydrogenase 187 units/L (91-180) H 11/05/21 06:11 Troponin T 0.045 ng/mL (0.00-0.029) H 11/29/21 20:15 C-Reactive Protein 22.20 mg/dL (0.00-1.30) H 11/05/21 06:11 NT-Pro-B Natriuret Pep 7895 pg/mL (0-900) H 11/03/21 22:32 Total Protein 5.1 g/dL (6.3-8.2) L 11/17/21 05:56 Albumin 2.2 g/dL (3.9-5) L 11/17/21 05:56 Albumin/Globulin Ratio 0.8 % 11/17/21 05:56 Triglycerides 59 mg/dL (2-149) 11/29/21 20:15 Cholesterol 74 mg/dL (50-199) 11/29/21 20:15 LDL Cholesterol Direct 25 mg/dL (50-130) L 11/29/21 20:15 HDL Cholesterol 41 mg/dL (40-59) 11/29/21 20:15 Cholesterol/HDL Ratio 1.80 % 11/29/21 20:15 Vitamin B12 1823 pg/mL (211-911) H 11/10/21 14:08 TSH 1.510 mlU/mL (0.270-4.200) 11/10/21 14:08 Urine Color Yellow (Yellow) 11/11/21 09:00 Urine Turbidity Slightly-cloudy (Clear) 11/11/21 09:00 Urine pH 5.0 (5.0-7.0) 11/11/21 09:00 Ur Specific [place] 1.009 (1.003-1.030) 11/11/21 09:00 Urine Protein <15 mg/dl mg/dL (Negative) 11/11/21 09:00 Urine Glucose (UA) Neg mg/dL (Negative) 11/11/21 09:00 Urine Ketones Neg mg/dL (Negative) 11/11/21 09:00 Urine Blood Mod (Negative) 11/11/21 09:00 Urine Nitrite Neg (Negative) 11/11/21 09:00 Urine Bilirubin Neg (Negative) 11/11/21 09:00 Urine Urobilinogen < 2.0 mg/dL (<2.0) 11/11/21 09:00 Ur Leukocyte Esterase Neg (Negative) 11/11/21 09:00 Urine WBC (Auto) < 1.0 /HPF (0.0-6.0) 11/11/21 09:00 Urine RBC (Auto) < 1.0 /HPF (0.0-6.0) 11/11/21 09:00 Fluid Type Pleural 01/06/22 13:40 Fluid Color Yellow 01/06/22 13:40 Fluid Appearance Hazy 01/06/22 13:40 Fluid WBC 273 /mm3 01/06/22 13:40 Fluid RBC 45 /mm3 01/06/22 13:40 Fluid Seg Neutrophils 47.0 % 01/06/22 13:40 Fluid Lymphocytes 22.0 % 01/06/22 13:40 Fluid Monocytes 10.0 % 01/06/22 13:40 Fluid Eosinophils 19.0 % 01/06/22 13:40 Fluid Basophils 2.0 % 01/06/22 13:40 Fluid Glucose 96 mg/dL (40-70) H 01/06/22 13:40 Fluid Total Protein < 3.0 (15.0-45.0) L 01/06/22 13:40 Fluid LDH 149 01/06/22 13:40 Vancomycin Trough 13.7 ug/mL (5.0-20.0) 01/08/22 06:33 Random Vancomycin 10.5 ug/mL (0-40.0) 01/04/22 05:00 Coronavirus (PCR) Negative (Negative) 11/10/21 08:30 Blood Type O POSITIVE 12/14/21 10:30 Antibody Screen Negative 12/14/21 10:30 Crossmatch See Detail 12/14/21 10:30 Gamble/IV: Voiding Method External Female Catheter Active Medications - Current Medications Current Medications: Generic Name Dose Route Start Last Admin Trade Name Freq PRN Reason Stop Dose Admin Acetaminophen 650 mg 12/14/21 04:12 01/14/22 01:00 Acetaminophen 325 Mg/10.15 Ml Oral Liqd Unit Dose FEEDTUBE 650 mg Q6H PRN Administration Non Cardiac Pain or Temp>100.5 Hydrocodone Bitart/Acetaminophen 1 each 11/21/21 10:00 01/15/22 14:31 Hydrocodone/Acetaminophen 10-325mg Tab FEEDTUBE 1 each TID YOSSI Administration Alprazolam 0.25 mg 12/30/21 09:00 01/14/22 03:03 Alprazolam 0.25 Mg Tab FEEDTUBE 0.25 mg Q8H PRN Administration Agitation Lipase/Protease/Amylase 1 each 11/08/21 11:09 Lipase 10,500/Protease 25,000/Amylase 43,750 (Units) Dr Lema FEEDTUBE PRN PRN For Clogged Feeding Tube Buspirone HCl 7.5 mg 12/30/21 10:00 01/15/22 09:51 Buspirone 5 Mg Tab FEEDTUBE 7.5 mg BID YOSSI Administration Dextrose 0 ml 11/10/21 10:52 12/30/21 00:48 Dextrose 10% *Hypoglycemia IV 50 ml PRN PRN Administration Hypoglycemia Docusate Sodium 100 mg 12/30/21 10:00 01/15/22 09:50 Docusate Sodium 100 Mg/10 Ml Oral Liqd FEEDTUBE 100 mg BID YOSSI Administration Furosemide 20 mg 01/08/22 10:00 01/15/22 09:51 Furosemide 20 Mg Tab PO 20 mg QDAY YOSSI Administration Gabapentin 100 mg 12/30/21 10:00 01/15/22 09:52 Gabapentin 100 Mg Cap FEEDTUBE 100 mg QDAY YOSSI Administration Hydrophilic Ointment 1 applic 11/06/21 04:02 Lip Therapy Vaseline TP Q2HR PRN Dry Lips Vancomycin HCl 1 gm in 250 mls @ 166.667 mls/hr 01/04/22 10:00 01/14/22 09:03 Vancomycin/Ns 1 Gm/250 Ml IV 01/26/22 11:29 166.667 mls/hr Q48H YOSSI Administration Lansoprazole 30 mg 11/24/21 22:00 01/15/22 09:52 Lansoprazole 30 Mg Solutab FEEDTUBE 30 mg BID YOSSI Administration Levothyroxine Sodium 125 mcg 12/31/21 06:00 01/15/22 05:04 Levothyroxine 125 Mcg Tab FEEDTUBE 125 mcg DAILY@0600 YOSSI Administration Melatonin 5 mg 12/05/21 22:00 01/14/22 21:14 Melatonin 5 Mg Tab PO 5 mg QHS YOSSI Administration Metoclopramide HCl 10 mg 01/11/22 13:25 01/14/22 14:56 Metoclopramide 10 Mg/2 Ml Inj IV 10 mg Q6H PRN Administration Nausea And Vomiting Metoprolol Tartrate 6.25 mg 12/30/21 10:00 01/15/22 09:51 Metoprolol Tartrate 25 Mg Tab FEEDTUBE 6.25 mg BID YOSSI Administration Midodrine 5 mg 12/30/21 09:00 01/15/22 12:27 Midodrine 5 Mg Tab FEEDTUBE 5 mg TID@0800,1200,1600 YOSSI Administration Multi-Ingred Cream/Lotion/Oil/Oint 1 applic 11/06/21 04:02 Mineral Oil/Petrolatum, White Ophth Oint 3.5 Gm OU Q4HR PRN Dry Eye(s) Ondansetron HCl 4 mg 12/05/21 10:00 01/14/22 06:28 Ondansetron 4 Mg/2 Ml Inj IV 4 mg Q8H PRN Administration Nausea And Vomiting Polyethylene Glycol 17 gm 12/30/21 10:00 01/15/22 09:53 Polyethylene Glycol 3350 17 Gm Powder FEEDTUBE Not Given QDAY YOSSI Pravastatin Sodium 20 mg 12/30/21 22:00 01/14/22 21:14 Pravastatin 20 Mg Tab FEEDTUBE 20 mg QHS YOSSI Administration Quetiapine Fumarate 25 mg 12/30/21 10:00 01/15/22 09:52 Quetiapine 25 Mg Tab FEEDTUBE 25 mg QAM YOSSI Administration Quetiapine Fumarate 50 mg 12/30/21 22:00 01/15/22 00:17 Quetiapine 25 Mg Tab FEEDTUBE 50 mg QHS YOSSI Administration Senna 17.6 mg 12/29/21 11:00 01/15/22 14:31 Sennosides Oral Liqd 8.8 Mg/5 Ml Oral Liqd FEEDTUBE Not Given Q12HR YOSSI Simple Syrup 15 ml 11/08/21 11:09 Simple Syrup 15 Ml FEEDTUBE PRN PRN Hypoglycemia Simple Syrup 30 ml 11/08/21 11:09 Simple Syrup 15 Ml FEEDTUBE PRN PRN Hypoglycemia Sodium Bicarbonate 325 mg 11/08/21 11:09 01/09/22 20:25 Sodium Bicarbonate 325 Mg Tab FEEDTUBE 325 mg PRN PRN Administration For Clogged Feeding Tube Sodium Chloride 10 ml 11/04/21 10:00 01/15/22 09:53 Sodium Chloride 0.9% 10 Ml Flush Syringe IV 10 ml BID YOSSI Administration Sodium Chloride 10 ml 11/04/21 02:03 01/09/22 06:35 Sodium Chloride 0.9% 10 Ml Flush Syringe IV 10 ml PRN PRN Administration LINE FLUSH Spironolactone 25 mg 12/30/21 10:00 01/15/22 09:50 Spironolactone 25 Mg Tab FEEDTUBE 25 mg QDAY YOSSI Administration Sucralfate 1 gm 12/30/21 12:00 01/15/22 12:22 Sucralfate 1 Gm/10 Ml Oral Liqd FEEDTUBE 1 gm Q6HR YOSSI Administration Trazodone HCl 50 mg 12/04/21 22:00 01/14/22 21:14 Trazodone 50 Mg Tab PO 50 mg QHS YOSSI Administration Nutrition/Malnutrition Assess - Dietary Evaluation Nutrition/Malnutrition Findings: Nutrition Notes Start: 11/04/21 17:16 Freq: Status: Active Protocol: Document 01/10/22 18:16 ISABELL (Rec: 01/10/22 18:44 ISABELL [id number]) Nutrition Notes Initial or Follow up Reassessment Current Diagnosis Diabetes,Heart Failure, Respiratory Failure Other Pertinent Diagnosis Bacteremia, Pneumonia, Bilateral Pleural Effusion, Agitation/Anxiety. Current Diet TF-Vital AF 1.2 Tamir @ 45 ml/hr (since D 12/22). Labs/Tests 01/10: Na 133, Cl 92.6, CO2 31 , BUN 29, Crea 0.5, Glu 115. Pertinent Medications 01/10: Levothyroxine, others nutritionally unremarkable. Height 5 ft Weight 73 kg [place] Body Weight (kg) 45.45 BMI 31.4 Weight change and time frame 0.3 Kg body weight loss in 1 week reported. Weight Status Obese Subjective/Other Information RD consult for routine F/U on TF tolerance. TF continues as prescribed, well tolerated, according to RN notes. Pt continues on Mechanical Ventilation. Procedure on 01/07: US Toracentesis, TF off on 01/06 at 08:14, TF resumed after procedure. Well tolerated, according to RN notes. Pt still waiting for LTAC/SNF placement, unsuccessfully. Percent of energy/protein needs met: 102% Kcal; 89% AA. Burn Absent Trauma Absent GI Symptoms Other Food Allergy No Skin Integrity/Comment Surgical wounds. Current % PO Other Minimum of two criteria No #1 Nutrition Diagnosis Inadequate oral intake Diagnosis Progress(for reassessment Continues documentation) Is patient on ventilator? Yes Is Patient Ambulatory and/or Out of Bed No REE-([facility]-confined to bed) 1334.892 Kcal/Kg value to use for calculation 17 Approximate Energy Requirements Using 1241 kcal/Kg Calculation Used for Recommendations Kcal/kg Additional Notes Protein: 2 g/Kg IBW; 91 g/day. Fluids: 1 ml/Kcal, or as per MD. Nutrition Intervention Nutrition Support: Continue Vital AF 1.2 Tamir @ 45 ml/hr. Flush: 70 ml water Q 4 hr, or as per MD. Kcal 1,296 Protein (gm) 81 Carbohydrates (gm) 119 Fat (gm) 58 Fluid (mL) 876 Fiber (gm) 6 % RDI: 102% Kcal; 89% AA. Goal #1 Provide at least 75% of energy /protein needs through Enteral Feeding during LOS. Goal #2 Maintain body weight within +/ -3% of admission body weight during LOS. Follow-Up By: 01/16/22 Additional Comments Continue monitoring TF tolerance and BM. Mechanical Ventilation status.
--- NOTE | 2022-01-15 15:08 | Event Note ---
Date: 01/15/22 Patient with a history of recurrent pleural effusions right greater than left. She will need to be scheduled for CT-guided placement of drainage catheter tomorrow.
[2022-01-15 15:32] LABS: Hematocrit 25.7 % (30.3-42.9); Hemoglobin 8.4 gm/dl (10.1-14.3); Mean Corpuscular HGB Conc 33 % (30-34); Mean Corpuscular Volume 83 fl (79-97); Platelet Count 267 K/mm3 (140-440); Red Blood Count 3.11 M/mm3 (3.65-5.03); Red Cell Distribution Width 17.2 % (13.2-15.2)
--- NOTE | 2022-01-15 15:42 | Progress Note ---
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 She was found to be in respiratory distress, initially treated with NRB. Pt was also noted to be septic with radiographic evidence of bilateral PNA Acute Respiratory Failure Septic Shock GBS Bacteremia Bilateral Pneumonia Bilateral Pleural Effusions Right pneumothorax and s/p right chest tube Acute HFrEF DVT- s/p IVC filter Cardiomyopathy (EF reduced to 30-35% on echo this admission) NSVT Tn Elevation (?Type 2 AL in the setting of hypoxia & shock) Anemia GI bleed CAD s/p PCI (2004) CHB s/p PPM ([facility]) Hypothyroidism H/o HTN H/o DM Arthritis Echo reviewed 11/04/2021 - EF 30-35%, mild diastolic dysfunction, RV mildly dilated, moderate MR, moderate TR, moderate pulmonary HTN w/RVSP 49mmHg, no pericardial effusion, large left pleural effusion. Echo 12/19/2021-EF 35 to 40%. Borderline concentric LVH. Right ventricular systolic function is mildly reduced. Left atrium is mildly dilated. Moderate mitral regurgitation. Large left pleural effusion large right pleural effusion. Moderate tricuspid regurgitation. Severe pulmonary hypertension Plan: Was asked to reassess patient due to new complaint of chest pain. Repeat EKG shows sinus rhythm 85 nonspecific ECG with repolarization abnormality. No acute ischemic changes. Troponins pending EKG not significantly different to prior EKG Patient reports the chest pain is worse with breathing and palpation. Describes pain as sharp and pinching. Pain does not appear of cardiac origin Recommend CT chest rule out PE Per discussion with staff patient for chest tube placement tomorrow Continue metoprolol 6.25 mg p.o. twice daily. May titrate up as needed Not on ASA d/t allergy. Patient S/p IVC filter Continue statin and lasix Pt seen in conjunction with Dr. Jaramillo who agrees with the assessment and plan of care. 30minutes of critical care time spent on care and coordination of patient - Patient Problems (1) Acute anemia Current Visit: Yes Status: Acute (2) Acute respiratory failure with hypoxia Current Visit: Yes Status: Acute (3) Bilateral pneumonia Current Visit: Yes Status: Acute Subjective Date of service: 01/15/22 Principal diagnosis: Septic shock; AHRF; Anemia; Pneumonia; pleural effusion; HFrEF; Pulm HTN Interval history: X-rays this patient due to complaint of chest pain. Patient reports chest pain has been going on for 2 to 3-week. Patient describes chest pain as sharp worse with inspiration and worsened with palpation. Patient has trach is awake with family at bedside Sinus 6070 on monitor Objective Vital Signs Temp Pulse Pulse Resp BP Pulse Ox Pulse Ox 01/15/22 15:20 106 H 189/133 98 01/15/22 15:00 66 14 162/69 97 01/15/22 14:00 107 H 16 226/119 86 01/15/22 13:00 61 18 136/61 99 01/15/22 12:25 74 24 173/97 95 01/15/22 12:00 71 62 12 173/97 99 01/15/22 11:49 98.2 F 01/15/22 11:00 60 14 110/46 98 01/15/22 10:01 72 14 142/72 97 01/15/22 09:51 74 123/53 01/15/22 09:50 75 123/53 01/15/22 09:00 62 13 125/53 97 96 01/15/22 08:00 65 64 15 121/49 95 01/15/22 07:15 98.1 F 01/15/22 07:00 63 14 101/47 98 01/15/22 06:00 62 14 103/46 94 01/15/22 05:00 60 13 102/42 96 01/15/22 04:00 69 60 14 102/42 98 01/15/22 03:00 60 14 97/42 96 01/15/22 02:00 60 14 96/38 97 01/15/22 01:00 63 14 97/45 98 01/15/22 00:34 63 101/38 99 01/15/22 00:00 97.4 F L 60 14 101/38 96 98 01/14/22 23:31 60 60 14 105/40 97 01/14/22 23:01 60 14 105/40 98 01/14/22 22:49 60 14 113/42 98 01/14/22 22:00 60 14 113/42 98 01/14/22 21:14 68 130/64 99 01/14/22 21:00 60 15 130/64 100 01/14/22 20:00 97.3 F L 60 14 138/67 100 01/14/22 19:49 60 16 100 01/14/22 19:00 62 14 124/58 98 01/14/22 18:00 66 14 134/69 97 01/14/22 17:30 98 01/14/22 17:22 66 120/54 98 01/14/22 17:00 60 14 120/54 01/14/22 16:00 97.7 F 60 60 14 122/61 100 - Physical Examination General: No Apparent Distress HEENT: Positive: Normocephaly Neck: Positive: neck supple, trachea midline Cardiac: Positive: Reg Rate and Rhythm Lungs: Positive: Decreased Breath Sounds Neuro: Positive: Grossly Intact Abdomen: Positive: Soft Skin: Negative: Rash, Wound Musculoskeletal: No Fluid Collection Extremities: Present: upper extr. pulses, lower extr. pulses - Labs and Meds CBC 01/15/22 01/15/22 Range/Units 14:36 Unknown WBC 10.7 10.2 (4.5-11.0) K/mm3 RBC 3.11 L 2.97 L (3.65-5.03) M/mm3 Hgb 8.4 L 8.0 L (10.1-14.3) gm/dl Hct 25.7 L 24.3 L (30.3-42.9) % Plt Count 267 276 (140-440) K/mm3 Lymph # (Auto) 2.5 (1.2-5.4) K/mm3 [place] # (Auto) 0.7 (0.0-0.8) K/mm3 Eos # (Auto) 0.4 (0.0-0.4) K/mm3 Baso # (Auto) 0.1 (0.0-0.1) K/mm3 Comprehensive Metabolic Panel 01/15/22 Range/Units Unknown Sodium 131 L (137-145) mmol/L Potassium 3.7 (3.6-5.0) mmol/L Chloride 93.1 L (98-107) mmol/L Carbon Dioxide 30 (22-30) mmol/L BUN 27 H (7-17) mg/dL Creatinine 0.6 (0.6-1.2) mg/dL Glucose 110 H (65-100) mg/dL Calcium 8.3 L (8.4-10.2) mg/dL - Imaging and Cardiology EKG: report reviewed, image reviewed Stress echo: report reviewed Echo: report reviewed Cardiac cath: report reviewed - Telemetry EKG Rhythm: Sinus Rhythm - EKG Sinus rhythms and dysrhythmias: sinus rhythm Ventricular dysrhythmias: ventricular premature com - Allied health notes Allied health notes reviewed: RT
[2022-01-15 15:48] LABS: Blood Urea Nitrogen 26 mg/dL (7-17); Calcium 8.6 mg/dL (8.4-10.2); Hemolysis Index 5
[2022-01-15 15:50] LABS: BUN/Creatinine Ratio 43
[2022-01-15 16:07] LABS: Anisocytosis 1+; Platelet Estimate Consistent w Auto; Total Cells Counted 100
[2022-01-15] MEDS: SIMETHICONE 80 MG CHEW TAB PO PRN ×2 (16:37→21:10)
[2022-01-15] MEDS: MELATONIN 5 MG TAB PO SCH (21:08)
[2022-01-15] MEDS: traZODone 50 MG TAB PO SCH (21:08)
[2022-01-15] MEDS: PRAVASTATIN 20 MG TAB FEEDTUBE SCH (21:08)
[2022-01-15 22:04] LABS: Chol/HDL Ratio 2.23 %
[2022-01-15] MEDS: ALPRAZolam 0.25 MG TAB FEEDTUBE PRN (23:43)
[2022-01-16] MEDS: LEVOTHYROXINE 125 MCG TAB FEEDTUBE SCH (05:36)
[2022-01-16] MEDS: SUCRALFATE 1 GM/10 ML ORAL LIQD FEEDTUBE SCH ×4 (05:36→23:21)
[2022-01-16 06:01] LABS: Blood Urea Nitrogen 24 mg/dL (7-17); Calcium 8.1 mg/dL (8.4-10.2); Hemolysis Index 0
[2022-01-16 06:04] LABS: BUN/Creatinine Ratio 40
[2022-01-16] MEDS: VANCOMYCIN/NS 1 GM/250 ML 1 GM/250 ML BAG IV SCH (10:53)
--- NOTE | 2022-01-16 11:13 | Progress Note ---
Assessment and Plan Patient will be brought down today for placement of smallbore chest tube to allow drainage of fluid from her right chest. Immediately prior to this, the patient will be undergoing scheduled CTA of the chest. Subjective Date of service: 01/16/22 Principal diagnosis: Septic shock; AHRF; Anemia; Pneumonia; pleural effusion; HFrEF; Pulm HTN Interval history: Patient with complex medical history with persistent bilateral right greater than left pleural effusions. Patient is complaining of some bilateral shoulder, back and spine pain. Patient is trached. Able to communicate however. Objective - Constitutional Vitals: Vital Signs - 12hr 01/15/22 01/16/22 01/16/22 23:33 00:00 00:30 Temperature 98.1 F Pulse Rate 68 60 Pulse Rate [ 60 From Monitor] Respiratory 15 Rate Blood Pressure 131/58 O2 Sat by Pulse 100 100 Oximetry O2 Sat by Pulse 97 Oximetry [ Assessment] 01/16/22 01/16/22 01/16/22 01:00 02:00 03:00 Temperature Pulse Rate 60 60 61 Pulse Rate [ From Monitor] Respiratory 14 14 14 Rate Blood Pressure 108/48 113/51 103/47 O2 Sat by Pulse 100 100 98 Oximetry O2 Sat by Pulse Oximetry [ Assessment] 01/16/22 01/16/22 01/16/22 03:17 03:18 03:44 Temperature 97.5 F L Pulse Rate 60 Pulse Rate [ 60 From Monitor] Respiratory 14 Rate Blood Pressure O2 Sat by Pulse 100 Oximetry O2 Sat by Pulse Oximetry [ Assessment] 01/16/22 01/16/22 01/16/22 04:00 05:00 06:00 Temperature Pulse Rate 75 60 60 Pulse Rate [ From Monitor] Respiratory 14 14 7 L Rate Blood Pressure 109/50 104/50 99/45 O2 Sat by Pulse 98 100 98 Oximetry O2 Sat by Pulse Oximetry [ Assessment] 01/16/22 01/16/22 07:00 08:16 Temperature Pulse Rate 60 60 Pulse Rate [ From Monitor] Respiratory 14 Rate Blood Pressure 94/44 107/49 O2 Sat by Pulse 98 100 Oximetry O2 Sat by Pulse 99 Oximetry [ Assessment] General appearance: Present: no acute distress - EENT Eyes: EOM intact ENT: hearing intact - Neck Neck: normal ROM, other (Tracheostomy tube) - Respiratory Respiratory effort: normal (On ventilator/assist control) - Breasts Breasts: deferred - Gastrointestinal General gastrointestinal: Present: deferred Rectal Exam: deferred - Genitourinary Female genitourinary: deferred - Psychiatric Psychiatric: cooperative - Labs CBC & Chem 7: 01/15/22 Unknown 01/16/22 05:21 Labs: Abnormal lab results 01/15/22 01/15/22 01/15/22 Range/Units 11:38 14:36 17:05 RBC 3.11 L (3.65-5.03) M/mm3 Hgb 8.4 L (10.1-14.3) gm/dl Hct 25.7 L (30.3-42.9) % MCH 27 L (28-32) pg RDW 17.2 H (13.2-15.2) % Seg Neuts % (Manual) 82.0 H (40.0-70.0) % Lymphocytes % (Manual) 11.0 L (13.4-35.0) % Seg Neutrophils # Man 8.8 H (1.8-7.7) K/mm3 Sodium (137-145) mmol/L Potassium (3.6-5.0) mmol/L Chloride (98-107) mmol/L BUN (7-17) mg/dL Glucose (65-100) mg/dL POC Glucose 107 H 108 H (70-105) mg/dL Calcium (8.4-10.2) mg/dL Troponin T (0.00-0.029) ng/mL LDL Cholesterol Direct (50-130) mg/dL 01/15/22 01/15/22 01/16/22 Range/Units 21:07 Unknown 05:21 RBC (3.65-5.03) M/mm3 Hgb (10.1-14.3) gm/dl Hct (30.3-42.9) % MCH (28-32) pg RDW (13.2-15.2) % Seg Neuts % (Manual) (40.0-70.0) % Lymphocytes % (Manual) (13.4-35.0) % Seg Neutrophils # Man (1.8-7.7) K/mm3 Sodium 134 L 134 L (137-145) mmol/L Potassium 3.4 L (3.6-5.0) mmol/L Chloride 93.9 L 95.4 L (98-107) mmol/L BUN 26 H 24 H (7-17) mg/dL Glucose 168 H (65-100) mg/dL POC Glucose (70-105) mg/dL Calcium 8.1 L (8.4-10.2) mg/dL Troponin T 0.088 H 0.078 H (0.00-0.029) ng/mL LDL Cholesterol Direct 44 L (50-130) mg/dL Medications & Allergies - Medications Allergies/Adverse Reactions: Allergies codeine Allergy (Verified 11/04/21 02:20) Unknown meperidine HCl [From Demerol] Allergy (Verified 11/04/21 02:21) Unknown morphine Allergy (Verified 11/04/21 02:21) Unknown Penicillins Allergy (Verified 11/04/21 02:21) Swelling Home Medications: Home Medications Medication Instructions Recorded Confirmed Last Taken Type Buspirone HCl [busPIRone] 15 mg PO DAILY 11/04/21 11/04/21 Unknown History Furosemide [Lasix] 40 mg PO QDAY 11/04/21 11/04/21 Unknown History HYDROcodone/APAP 10-325 [[place] 1 each PO Q8HR PRN 11/04/21 11/04/21 Unknown H istory 10/325] Levothyroxine [Synthroid] 125 mcg PO QAM 11/04/21 11/04/21 Unknown History Loratadine [Allergy Relief] 10 mg PO QDAY PRN 11/04/21 11/04/21 Unknown History Meclizine [Antivert] 12.5 mg PO BID PRN 11/04/21 11/04/21 Unknown History Nitroglycerin [Nitrostat] 0.4 mg SL PRN PRN 11/04/21 11/04/21 Unknown History Omeprazole Magnesium [Prilosec] 20 mg PO QDAY 11/04/21 11/04/21 Unknown History Pravastatin Sodium [Pravastatin] 20 mg PO QHS 11/04/21 11/04/21 Unknown History Prednisone [predniSONE (Rebeca) ER 1 mg PO QDAY 11/04/21 11/04/21 Unknown History TAB] allopurinoL [Zyloprim] 300 mg PO QDAY 11/04/21 11/04/21 Unknown History ondansetron HCL [Zofran] 4 mg PO Q6HR PRN 11/04/21 11/04/21 Unknown History Active Medications: Generic Name Dose Route Start Last Admin Trade Name Freq PRN Reason Stop Dose Admin Acetaminophen 650 mg 12/14/21 04:12 01/14/22 01:00 Acetaminophen 325 Mg/10.15 Ml Oral Liqd Unit Dose FEEDTUBE 650 mg Q6H PRN Administration Non Cardiac Pain or Temp>100.5 Hydrocodone Bitart/Acetaminophen 1 each 11/21/21 10:00 01/15/22 21:08 Hydrocodone/Acetaminophen 10-325mg Tab FEEDTUBE 1 each TID YOSSI Administration Alprazolam 0.25 mg 12/30/21 09:00 01/15/22 23:43 Alprazolam 0.25 Mg Tab FEEDTUBE 0.25 mg Q8H PRN Administration Agitation Lipase/Protease/Amylase 1 each 11/08/21 11:09 Lipase 10,500/Protease 25,000/Amylase 43,750 (Units) Dr Lema FEEDTUBE PRN PRN For Clogged Feeding Tube Buspirone HCl 7.5 mg 12/30/21 10:00 01/15/22 21:08 Buspirone 5 Mg Tab FEEDTUBE 7.5 mg BID YOSSI Administration Dextrose 0 ml 11/10/21 10:52 12/30/21 00:48 Dextrose 10% *Hypoglycemia IV 50 ml PRN PRN Administration Hypoglycemia Docusate Sodium 100 mg 12/30/21 10:00 01/15/22 21:08 Docusate Sodium 100 Mg/10 Ml Oral Liqd FEEDTUBE 100 mg BID YOSSI Administration Furosemide 20 mg 01/08/22 10:00 01/15/22 09:51 Furosemide 20 Mg Tab PO 20 mg QDAY YOSSI Administration Gabapentin 100 mg 12/30/21 10:00 01/15/22 09:52 Gabapentin 100 Mg Cap FEEDTUBE 100 mg QDAY YOSSI Administration Hydrophilic Ointment 1 applic 11/06/21 04:02 Lip Therapy Vaseline TP Q2HR PRN Dry Lips Vancomycin HCl 1 gm in 250 mls @ 166.667 mls/hr 01/04/22 10:00 01/16/22 10:53 Vancomycin/Ns 1 Gm/250 Ml IV 01/26/22 11:29 166.667 mls/hr Q48H YOSSI Administration Lansoprazole 30 mg 11/24/21 22:00 01/15/22 21:10 Lansoprazole 30 Mg Solutab FEEDTUBE 30 mg BID YOSSI Administration Levothyroxine Sodium 125 mcg 12/31/21 06:00 01/16/22 05:36 Levothyroxine 125 Mcg Tab FEEDTUBE 125 mcg DAILY@0600 YOSSI Administration Melatonin 5 mg 12/05/21 22:00 01/15/22 21:08 Melatonin 5 Mg Tab PO 5 mg QHS YOSSI Administration Metoclopramide HCl 10 mg 01/11/22 13:25 01/14/22 14:56 Metoclopramide 10 Mg/2 Ml Inj IV 10 mg Q6H PRN Administration Nausea And Vomiting Metoprolol Tartrate 6.25 mg 12/30/21 10:00 01/15/22 22:58 Metoprolol Tartrate 25 Mg Tab FEEDTUBE Not Given BID YOSSI Midodrine 5 mg 12/30/21 09:00 01/15/22 16:37 Midodrine 5 Mg Tab FEEDTUBE 5 mg TID@0800,1200,1600 [facility] Administration Multi-Ingred Cream/Lotion/Oil/Oint 1 applic 11/06/21 04:02 Mineral Oil/Petrolatum, White Ophth Oint 3.5 Gm OU Q4HR PRN Dry Eye(s) Ondansetron HCl 4 mg 12/05/21 10:00 01/14/22 06:28 Ondansetron 4 Mg/2 Ml Inj IV 4 mg Q8H PRN Administration Nausea And Vomiting Polyethylene Glycol 17 gm 12/30/21 10:00 01/15/22 09:53 Polyethylene Glycol 3350 17 Gm Powder FEEDTUBE Not Given QDAY [facility] Pravastatin Sodium 20 mg 12/30/21 22:00 01/15/22 21:08 Pravastatin 20 Mg Tab FEEDTUBE 20 mg QHS YOSSI Administration Quetiapine Fumarate 25 mg 12/30/21 10:00 01/15/22 09:52 Quetiapine 25 Mg Tab FEEDTUBE 25 mg QAM YOSSI Administration Quetiapine Fumarate 50 mg 12/30/21 22:00 01/15/22 21:08 Quetiapine 25 Mg Tab FEEDTUBE 50 mg QHS YOSSI Administration Senna 17.6 mg 12/29/21 11:00 01/15/22 21:09 Sennosides Oral Liqd 8.8 Mg/5 Ml Oral Liqd FEEDTUBE Not Given Q12HR YOSSI Simethicone 80 mg 01/15/22 15:06 01/15/22 21:10 Simethicone 80 Mg Chew Tab PO 80 mg PC PRN Administration Gas pain Simple Syrup 15 ml 11/08/21 11:09 Simple Syrup 15 Ml FEEDTUBE PRN PRN Hypoglycemia Simple Syrup 30 ml 11/08/21 11:09 Simple Syrup 15 Ml FEEDTUBE PRN PRN Hypoglycemia Sodium Bicarbonate 325 mg 11/08/21 11:09 01/09/22 20:25 Sodium Bicarbonate 325 Mg Tab FEEDTUBE 325 mg PRN PRN Administration For Clogged Feeding Tube Sodium Chloride 10 ml 11/04/21 10:00 01/15/22 21:09 Sodium Chloride 0.9% 10 Ml Flush Syringe IV 10 ml BID YOSSI Administration Sodium Chloride 10 ml 11/04/21 02:03 01/09/22 06:35 Sodium Chloride 0.9% 10 Ml Flush Syringe IV 10 ml PRN PRN Administration LINE FLUSH Spironolactone 25 mg 12/30/21 10:00 01/15/22 09:50 Spironolactone 25 Mg Tab FEEDTUBE 25 mg QDAY YOSSI Administration Sucralfate 1 gm 12/30/21 12:00 01/16/22 05:36 Sucralfate 1 Gm/10 Ml Oral Liqd FEEDTUBE 1 gm Q6HR YOSSI Administration Trazodone HCl 50 mg 12/04/21 22:00 01/15/22 21:08 Trazodone 50 Mg Tab PO 50 mg QHS YOSSI Administration HEART Score - HEART Score Troponin: Troponin T 0.078 ng/mL (0.00-0.029) H 01/15/22 Unknown
[2022-01-16] MEDS ORDERED: fentaNYL 100 MCG/2 ML INJ IV NR (11:28)
[2022-01-16] MEDS ORDERED: SODIUM CHLORIDE 0.9% 500 ML 0 ML ONE (11:44)
[2022-01-16] MEDS ORDERED: MIDAZOLAM 2 MG/2 ML INJ IV NR (12:00)
--- NOTE | 2022-01-16 12:00 | Progress Note ---
Assessment and Plan Assessment and plan: This is an 82-year-old female with DM, HTN , CHB s/p PPM, CAD s/p PCI and arthritis who presented to the emergency department on 11/04 for shortness of breath ongoing for the past 3 days, cough and according to family a fever of 102.2. Upon arrival of EMS patient was found to be tachypneic and hypoxic with SPO2 of 76% on room air which later improved to 88% on nonrebreather. Work-up in the emergency department included a CXR which showed bilateral interstitial pulmonary edema with bilateral pleural effusions and bibasilar opacities, leukocytosis and anemia with a hemoglobin of 6.1. Patient was admitted to the hospitalist service with acute anemia, acute hypoxic respiratory failure, bilateral pneumonia and COVID-19 PUI with consults to pulmonology, infectious disease and later cardiology. Patient was eventually intubated in the emergency department on 11/06. Hospital Course to date: 11/04/2021: Empiric therapy with iv levaquin/vancomycin. COVID PCR pending. Will consult ID. PCCM consulted, will follow recs. Hypotensive this AM, ordered bolus and fluids at 150 cc/hr. May require pressor support if bp does not improve. 11/05/2021: GBS on bcx +, currently on rocephin IV. Currently on bipap due to respiratory distress overnight. Worsening BL opacities on CXR. May be volume overload vs pneumonia. Unfortunately bp too low for lasix at this point. WIll continue levophed and bipap. Once able to tolerate, may do trial of albumin/lasix. Call attempt made to Niraj, no response. Will try again tomorrow to update. 11/06/2021: Decompensated overnight requiring intubation. CXR shows worsening interstitial infiltrates. Currenlty on dopamine, levophed, vasopressin. PICC line ordered. Advised RN to place gamble for I/O monitoring. Would benefit from diuresis but very volume overloaded. Prognosis guarded 11/08: Off sedation this am, remains unresponsive only grimace to pain. Hold all sedatives agents for now, patient is off pressors this am. Hypernatremia from today's lab- D5W X1bag, and low K repleted, repeat lab in the am. Severe constipation also noted from KUB, BR added. 11/09: Sudden SPO2 drop in the 60s this am. Patient was manually bagged and deep suctioned. Patient is currently stable on the vent, repeat CXR with no significant change. D/w CCM Mucomyst and brochodilator added. Patient mentation is unchanged, continue to hold off on sedative agents. Neurology consulted. 11/10: Acute DVT noted on bilateral lower extremity Doppler ultrasound therefore she was started on Lovenox treatment dose. Failed SBT. Hypernatremia and hyperchloremia noted, free water flush adjusted. 11/11: Patient noted to be febrile with increasing of the cytosis, UA/BC sent and CXR ordered. ID escalated antibiotics to cefepime. CXR demonstrated mucous plug, bedside bronchoscopy was performed and O ETT was changed over bougie from 6 cm to 7.5. Patient was noted to have a pneumothorax postprocedure and chest tube was placed. Family updated by [facility]. Free water flush increased and will add Jaswant supplementation. 11/12: Patient not noted to follow commands, hypernatremia worsen/persist, increasing free water flush, potassium and magnesium and phosphorus repleted. Hemoglobin noted to be 7./24.5 from 7.03/12 yesterday. We will continue to trend and monitor. Vent changes per [facility]. Repeat CXR showed no residual pneumothorax. Consider waterseal tomorrow. Given persistent leukocytosis antibiotics escalated to cefepime per ID. 11/13: Remains on cefepime and vancomycin, vent changes per [facility]. Anemia noted and given 1 unit PRBC. And beta-charleen held in setting of Levophed drip infusing. Remains on fentanyl drip. 11/14: Patient put on CPAP trial by [facility], will continue chest tube until after extubation. Will rest on assist control. CT brain was cancelled by interventional radiology technologist and reordered. 11/15: Patient removed chest tube overnight. Will obtain cxr. remains on low dose levo. CTH completed with no acute findings. RT to place on CPAP. 11/16: Hypernatremia/hyperchloremia noted on the increase of day water flushes. Anemia noted and ordered PRBC. asked RT to place on cpap but not done yet 11/17: Patient remains on the vent, awake and following commands. H&H stable s/p 2units PRBCs. GI on consult, no intervention at this time. Will continue protonix gtt and serial H&H Q6hrs. Keep patient NPO for now, D5w added for hypernatremia and NPO status. Plan for IVC filter placement today by Vascular. 11/18: Patient is s/p IVC filter. H&H continue to trend down, hbg 6.1 this am, 1 unit of PRBCs ordered. Plan for possible EGD today by GI. Keep patient NPO, continue PPI drip and serial H&H Q6hrs. Electrolytes repleted, repeat lab in the am 11/19: S/p EGD- larger duodenal ulcer noted, see operative note. GI recommendations noted also noted. H&H stable this am. Keep patient on protonix gtt for now. Will keep patient NPO, continue IVF and serial H&H for now. Electrolytes repleted, repeat labs in the am 11/20: Very agitated and restless this am, fentanyl gtt resumed. Patient remains on protonix gtt, H&H remains stable. Will switch protonix gtt to IV BID, continue carafate and okay to resume meds at this time. Will F/u with GI to see if TF can be resumed. Gamble was reinserted overnight for retention. Electrolytes repleted, repeat in the am. Plan for possible PST today for possible extubation per CCM. 11/21: Patient is now on seroquel and patient's home buspar resumed. Patient more calm this morning, fentanyl gtt is off. H&H remains stable and patient is tolerating TF. Patient had a runs of Vtach/PVCs this am, BB added per Cardio. Continue daily PS and wean trial for possible extubation. 11/22: Back on fentanyl gtt overnight , RASS o to -1, following commands. Patient failed PST this am due to increased work of breathing and low SPO2, ABG pending. Patient is also with worsen pitting edema, lasix is still on hold. Will discuss with cardio and CCM to possibly resume lasix. 11/23: MARIA DEL CARMEN overnight. Patient failed PST again this am. Per CCM plan for possible trach and PEG, hold off on IV lasix for now. General surgery consulted and family is aware of possible Trach and PEG. 11/24: Trach/PEG pending this week, continue SBT/SAT as tolerated. No acute events reported overnight. 11/25: Patient was n.p.o. overnight and will remain n.p.o. tonight for trach/PEG tomorrow morning. She failed to support trial again. KUB obtained due to distended belly. 11/26: Patient scheduled for tracheostomy and PEG tube placement today, has been n.p.o. since midnight. No acute events reported overnight. [facility] ordered simethicone scheduled. 11/27: No acute events reported overnight, patient received trach/PEG yesterday. Has been on feedings since last night. Still awaiting LTAC placement. 11/28: Patient magnesium repleted, repeat a.m. labs, SBT 11/29: Patient complains of chest pain but ECG obtained which showed no acute findings, ordered troponin. Patient failed CPAP yesterday and was trialed again today. levophed was restarted but will aggressively wean 11/30: Patient failed SBT. Continue supportive care. Started gabapentin today 12/01: MARIA DEL CARMEN overnight. Continue daily PST. Case management to arrange possible placement 12/02: Report of dark stools overnight, patient is hemodynamically stable. H&H stable, patient is on PPI. Will continue to trend H&H. Continue daily PST as tolerated. Awaiting LTAC vs SNF placement. 12/03: Hypotensive overnight, requiring low dose pressors. S/p X3 days of gentle diurese. Will continue to monitor, wean off pressors as tolerated for MAP of 65. Patient Failed PST yesterday, case management to follow up with insurance for possible LTAC placement. Continue daily PST as tolerated. PT eval and treat ordered. 12/04: Increased agitation and anxiety overnight, remains on buspar and seroquel, trazadone added to promote rest. Patient is now working with PT, keep patient engage and awake during the day so she can rest at night. No BM for over 5 days, BR was adjusted. Patient did not tolerate PST again yesterday, continue daily PST as tolerated. Continue to titrate pressor for MAP above 65. Pending possible LTAC placement, case management to arrange. 12/05: Still not getting much rest overnight, will add melatonin for sleep. Continue to engage patient during the day and promote rest at night. TF was held due to concern for possible bleeding, H&H remains stable and stools normal this am. Resume TF and continue PPI and carafate. Remains on low dose levophed, titrate as tolerated. Continue daily PST. Possible LTAC placement, awaiting approval. 12/06: MARIA DEL CARMEN overnight. Patient rested overnight. Continue supportive measures. Daily PST as tolerated. Awaiting possible LTAC placement 12/07: MARIA DEL CARMEN overnight. Plan for Tpiece trial today. Continue current supportive measures. Possible LTAC placement 12/08: Patient placed on pressure support trial again today, started on Xanax, no acute events reported overnight. Awaiting insurance approval for LTAC. 12/09: Levophed discontinued, LTAC transfer denied, started on midodrine and Lasix, ultrasound chest pending, started on Xanax 0.[address] De León updated family at bedside today. Started on Dilaudid every 3 hours as needed. 12/10: Patient placed on CPAP trial this morning, no acute events reported overnight. Will order ultrasound-guided thoracentesis. 12/11: Patient had a thoracentesis today, will decrease Xanax dosage and continue midodrine and diuresing. Patient failed CPAP today. 12/12: Patient not tolerate CPAP trials today, no acute events reported overnight 12/13: No acute events overnight. continue PSV trials as tolerated. Daughter upd ated at bedside 12/14: Patient noted to be anemic today, ordered gastric occult. Patient seems to be oversedated therefore Xanax changed to as needed and fentanyl patch discontinued. We will continue to monitor hyponatremia. 12/15: MARIA DEL CARMEN overnight. s/p 1unit of PRBCs, H&H stable this am, no signs of any active bleeding. Continue daily PST as tolerated. Awaiting placement. 12/16: Hypertensive this am, Midodrine decreased. Continue daily PST. MARIA DEL CARMEN overnight 12/17: Patient Hgb dropped to 6 this am, no s/s of any active bleeding, VSS. Patient received 1unit of PRBC, will continue to trend H&H. Patient was pancultured and back on IV Abx due to persistent fevers yesterday. ID is also back on the case. Continue IV Abx per ID and f/u on cultures data for sensitivity. Patient also failed PST yesterday, continue daily PST as tolerated. Electrolytes repleted, repeat labs in the am. 12/18: Patient blood cultures is growing GPC 4 out 4 bottles. PICC line D/Rivas, patient is already on IV Abx-cefepine and Vanc and ID is following. Patient remains hemodynamically stable. Daily PST as tolerated adn PRN Benzo for anxiety. 12/19: MARIA DEL CARMEN overnight. Culture data noted, continue IV Abx per ID. Orders placed for repeat Bculture. Gamble D/C overnight, patient is voiding. Check bladder scan as needed for retention. Patient failed PST again today. Continue daily PST as tolerated. 12/20: Fevers improved, Cultures +MRSA, on Vanco per ID. Repeat 2D Echo to r/o endocarditis. Patient continue to fail PST, PEEP increased to 8 today. Continue pulmonary hygiene and vent wean per CCM. Sodium tab added for hyponatremia. 12/22: Patient on pressure support trial for approximately 4 hours today, midodrine dosage increased due to hypotension. Lasix discontinued. 12/23: Started on a.m. Seroquel dose, midodrine increased to 10 mg 3 times daily, 500 mL normal saline bolus. 12/24: Seroquel dose changed (25 every morning, 75 nightly). updated at bedside by Dr. De León. CPAP trials as tolerated. Continue vancomycin. Awaiting placement. 12/25: Continue CPAP as tolerated, added gasx for distention. Continue supportive care 12/26: Patient failed PSV this AM. no acute events overnight. 12/27: GI re-consulted due to abdominal distention. No acute events reported overnight. CPAP trials as tolerated. Dr. Mckenna will get a KUB to rule out possible obstruction. 12/28: KUB shows no acute process, CXR shows improvement. CPAP trials as tolerated. 12/29: CT Abd/pelvis noted with moderated bilateral pleural effusion, anasarca, and ascites. X1dose of IV lasix administered. D/w CCM and GI orders plan for thora and paracentesis by IR. Will also start patient on aldactone Qday. Patient is tolerating trickle feeds this am, continue TF and BR adjusted for constipation. Plan of care was discussed with patient and her at the bedside. Thorough discussion on patient's overall poor prognosis and that eddie ent will most likely be vent dependent. Patient's voiced understanding of the info given. All questions and concerns were voiced at this time. 12/30: Patient did not tolerate thoracentesis in IR yesterday due to change in LOC and hypoxia. Plan for possible bedside thoracentesis and paracentesis today. Patient remains afebrile. Patient required termite treater helper IV abx therapy [id number] left, orders placed for a PICC. Patient remains with sign. Piting edema and anasarca, X1 does of PO Zaroxolyn and 2m of IV lasix given. Electrolytes repleted, repeat lab in the am. 12/31: Tolerated Rt. thoracentesis at the bedside yesterday, 1.4L removed. Patient remains stable on the vent this am, tolerating CPAP today PS dropped to 14. Recent CXR noted, left pleural effusion improved. Patient tolerated gentle diurese yesterday, good urine output reported. D/w CCM hold off on Left thoracentesis today, continue PO Aldactone and additonal zaroxolyn and IV lasix again today. F/u CXR in the am. 01/01: This am CXR noted with worsening bilateral pleural effusion. Patient is stable and tolerating PST this am, however PS is back up to 20 this am. BP is soft this am will hold off on IV diuretic for today, continue PO Aldactone. D/w CCM continue gentle diurese as tolerated. Will reassess in the am. Continue s upport care. 01/02: MARIA DEL CARMEN overnight. VSS this am, tolerating PST. X1dose of 25% IV Albumin following with 20mg IV Lasix today. Continue daily gentle diurese if hemodynamics tolerate it. Continue to monitor and replace electrolytes as needed 01/03: Abdominal distention and vomiting overnight, 600cc of gastric residual removed, TF held. KUB with no acute abnormality. Reglan added X2days, resume TF, and continue BR. Patient is tolerating PST this am. Hemodynamics remains stable, will continue gentle IV diurese. close monitoring to renal function and electrolytes. 01/04: Tolerating TF, nausea/vomiting resolved, last BM on 01/03. Continue Reglan X1 more day. Patient continue to tolerate PST. D/W CCM continue gentle diurese. F/U CXR in the am. Possible US thoracentesis tomorrow. 01/05: no acute events overnight. scheduled for thoracentesis today but procedure pushed to tomorrow. TF restarted and will be NPO post MN. 01/06: planned thoracentesis today. Working with CM for ltac/snf approval. 01/07: s/p thoracentesis 120 cc appears to have been removed. Pulm recommendations noted, agree with continued diuresis and weaning. Continued planning with CM for ltac/snf placement. 01/08: No new issues. Continue vent weaning per pulmonary. Continuing to work with CM for placement. 01/09: No new issues. Continue vent weaning per pulmonary. Continuing to work with CM for placement. Ordered BMP for tomorrow to check kidney function as patient is currently being diuresed. 01/10: No new issues. Continue vent weaning/diuresis as directed by pulmonary medicine.BMP demonstrates normal renal function and potassium. Sodium and Chloride consistent with prior labs. Will recheck BMP in 2 days. Placement continues to be an issue as patient has been denied at all facilities. Will reasses with CM on wednesday. 01/11: Emesis overnight. Do not suspect that she is obstructed as she had 2 BM reported. Will order Reglan prn, drop TF rate to goal of 30 cc/hr. Will continue to work on placement. 01/12: Per RN patient had reported that she was tired and did not want to persist in her current state of health. D/w patient Niraj at patient bedside and stated that I recommended the patient/family at least talk with hospice to get a better understanding of their care. He was agreeable. I spoke with Ms. Busby who will help set up referral for hospice service so that family can be educated and, if the patient chooses, can pursue this option. 01/13: Continue supportive care. Family discussing about hospice. Continue reinforcement and continue weaning as tolerated. Prognosis is guarded and poor. Patient is clinically stable to transfer to the next level of care has not required any escalation in management. Has been stable on the vent awake alert following commands. 01/14: [id number]. Considering abdominal distention tube feedings hold along with the fact that the patient vomited yesterday. Will obtain a CT abdomen and pelvis to further evaluate placement. Discussed with nursing staff. Awaiting to have a family conversation with the for goals of care discussion again. 01/15: Continue supportive care, tube feed was restarted yesterday and tolerated, will start on simethicone for gas control and management. Patient is clinically stable for all lower level of care and continued weaning from the ventilator to appropriate facility. Family still undecided about goals of care. We will also check labs intermittently. 01/16: Patient today went for Chest tube placement on the right side for recurrent pleural effusion, with the goal of evaluating to see if we can wean off the vent. She has remained on the vent and with some persistent anxiety. she continues to tolerate tube feed. Again poor prognosis discussed with family. Assessment and Plan Neuro : Anxiety, chronic pain -Neurology consulted, appreciate recommendations -CT brain showed no acute events -EEG interpreted as abnormal record due to diffuse slowing noted throughout the recording, suggestive of encephalopathic process and/or drug effect, possibilities of postictal state cannot be totally excluded. Clinical correlation is in order -MRI brain not obtained-> patient has metal in her body -Repeat CT head with no acute findings -Reorientation as needed -Ammonia 42, B12 1823, TSH 1.5 -BuSpar, Seroquel, [place], gabapentin -prn xanax and Dilaudid Cardio: Acute Heart failure with reduced EF, h/o chronic heart block s/p PPM, HTN, CAD s/p PCI (2004), Moderate pulmonary HTN, cardiomyopathy -s/p vasopressor support with levophed -11/04 echocardiogram shows EF 30 to 35%, Moderate pulmonary HTN RVSP 49 -3/4 echo with 35-40% EF -Cardiology consulted, appreciate recommendations -Continue beta-charleen and statin therapy -Midodrine (titrate as needed) -Not on aspirin due to allergy -Blood pressure monitoring per protocol -As needed nitroglycerin Resp: Acute hypoxic respiratory failure secondary to bilateral pneumonia, bilateral pleural effusion. Right pneumothorax (resolved) -COVID-19 PCR negative -Intubated on 11/06 with 6.00 ETT at 18 at the lip and changed over bougie on 11/11-7.50 ETT at 20 at the lip -See RT notes for titration -PSV as tolerated -Surgery consult for trach -Received trach/PEG on 11/26 -S/p bedside bronchoscopy on 11/11 complicated by pneumothorax -S/p chest tube placement for right pneumothorax and dislodgment by patient on 11/15 -ABG/CXR per [facility] -VAP bundle -Right chest wall ultrasound showed pleural effusion s/p chest tube -12/11 US thoracentesis removed 1L fluid -12/29 US thoracentesis removed 1.4L fluid -01/06 thoracentesis planned -SPO2 monitoring GI: S/p GI bleed, duodenal ulcer, transaminitis -GI consulted, appreciate recommendations-signed off -Nutrition consult for tube feeding, currently on nepro TF 45 cc/hr, dropped to 30 cc/hr due to concerns for emesis. -BR: Senokot -s/p peg 11/26 -H2 charleen -Carafate -24-hour +428 ml -10/2021 Gastric occult positive -> EGD-> duodenal ulcer -12/14 occult stool positive - reglan prn. : Urinary retention (resolved), hyponatremia, hypochloremia -Strict intake and output -Trend BMP ID: Septic shock (POA-resolved), bilateral pneumonia, MRSA bacteremia/pna -Infectious disease consulted, appreciate recommendations -COVID-19 PCR negative -Presented with fevers, leukocytosis and hypotension -11/04 blood cultures positive with a group B strep bacteremia 12/19 however repeat blood cultures on the with no growth to date -Echo showed no evidence of vegetation -repeat echo showed EF 35-40 % with no vegetations -ABX therapy: IV vancomycin for 4 weeks (12/16-01/26) -Monitor WBC and fever curve -Bedside bronchoscopy for mucous plug on CXR 11/11 -f/u blood cultures Heme: Acute DVT in the right external iliac vein, common femoral vein, superior aspect of femoral vein, Acute microcytic anemia -Evidenced on bilateral upper lower extremity ultrasound -S/p 7 unit PRBC -Trend CBC -Transfuse for hemoglobin less than 7 -heparin gtt dc d/t anemia -S/p IVC filter Endo: h/o DM and hypothyroidism -Continue home Synthroid -SSI -Accu-Cheks every 6 -Avoid hypoglycemia History Interval history: Patient seen and examined, still on the vent, Resting, chest tube to be placed today Hospitalist Physical - Physical exam Narrative exam: VITAL SIGNS: Reviewed. GENERAL: The patient appears normally developed, trach to vent vital signs as documented. Frail appearing elderly woman. HEAD: No signs of head trauma. EYES: Pupils are equal. Extraocular motions intact. EARS: Hearing grossly intact. MOUTH: Oropharynx is normal. NECK: No adenopathy, no JVD. Trach to vent CHEST: Bl rhonchi, right sided chest tube CARDIAC: Regular rate and rhythm. S1 and S2, without murmurs, gallops, or rubs. VASCULAR: No Edema. Peripheral pulses normal and equal in all extremities. ABDOMEN: Soft, non tender and mildly distended. No rebound or guarding, and no masses palpated. Bowel Sounds normal. MUSCULOSKELETAL: Good range of motion of all major joints. Extremities without clubbing, cyanosis or edema. NEUROLOGIC EXAM: Alert and oriented x 3. no focal sensory or strength deficits. PSYCHIATRIC: anxious SKIN: detail exam as documented in skin assessment - Constitutional Vitals: Temp Pulse Resp BP Pulse Ox 97.5 F L 66 14 130/62 100 01/16/22 03:44 01/16/22 11:22 01/16/22 07:00 01/16/22 11:22 01/16/22 11:22 General appearance: Present: no acute distress HEART Score - HEART Score Troponin: Troponin T 0.078 ng/mL (0.00-0.029) H 01/15/22 Unknown Results - Labs CBC & Chem 7: 01/15/22 Unknown 01/16/22 05:21 Labs: Laboratory Last Values WBC 10.2 K/mm3 (4.5-11.0) 01/15/22 Unknown RBC 2.97 M/mm3 (3.65-5.03) L 01/15/22 Unknown Hgb 8.0 gm/dl (10.1-14.3) L 01/15/22 Unknown Hct 24.3 % (30.3-42.9) L 01/15/22 Unknown MCV 82 fl (79-97) 01/15/22 Unknown MCH 27 pg (28-32) L 01/15/22 Unknown MCHC 33 % (30-34) 01/15/22 Unknown RDW 17.2 % (13.2-15.2) H 01/15/22 Unknown Plt Count 276 K/mm3 (140-440) 01/15/22 Unknown Lymph % (Auto) 24.2 % (13.4-35.0) 01/15/22 Unknown [place] % (Auto) 6.8 % (0.0-7.3) 01/15/22 Unknown Eos % (Auto) 3.5 % (0.0-4.3) 01/15/22 Unknown Baso % (Auto) 0.5 % (0.0-1.8) 01/15/22 Unknown Lymph # (Auto) 2.5 K/mm3 (1.2-5.4) 01/15/22 Unknown [place] # (Auto) 0.7 K/mm3 (0.0-0.8) 01/15/22 Unknown Eos # (Auto) 0.4 K/mm3 (0.0-0.4) 01/15/22 Unknown Baso # (Auto) 0.1 K/mm3 (0.0-0.1) 01/15/22 Unknown Add Manual Diff Complete 01/15/22 14:36 Total Counted 100 01/15/22 14:36 Seg Neutrophils % 65.0 % (40.0-70.0) 01/15/22 Unknown Seg Neuts % (Manual) 82.0 % (40.0-70.0) H 01/15/22 14:36 Band Neutrophils % 0 % 01/15/22 14:36 Lymphocytes % (Manual) 11.0 % (13.4-35.0) L 01/15/22 14:36 Reactive Lymphs % (Man) 0 % 01/15/22 14:36 Monocytes % (Manual) 5.0 % (0.0-7.3) 01/15/22 14:36 Eosinophils % (Manual) 1.0 % (0.0-4.3) 01/15/22 14:36 Basophils % (Manual) 1.0 % (0.0-1.8) 01/15/22 14:36 Metamyelocytes % 0 % 01/15/22 14:36 Myelocytes % 0 % 01/15/22 14:36 Promyelocytes % 0 % 01/15/22 14:36 Blast Cells % 0 % 01/15/22 14:36 Nucleated RBC % Not Reportable 01/15/22 14:36 Seg Neutrophils # 6.6 K/mm3 (1.8-7.7) 01/15/22 Unknown Seg Neutrophils # Man 8.8 K/mm3 (1.8-7.7) H 01/15/22 14:36 Band Neutrophils # 0.0 K/mm3 01/15/22 14:36 Lymphocytes # (Manual) 1.2 K/mm3 (1.2-5.4) 01/15/22 14:36 Abs React Lymphs (Man) 0.0 K/mm3 01/15/22 14:36 Monocytes # (Manual) 0.5 K/mm3 (0.0-0.8) 01/15/22 14:36 Eosinophils # (Manual) 0.1 K/mm3 (0.0-0.4) 01/15/22 14:36 Basophils # (Manual) 0.1 K/mm3 (0.0-0.1) 01/15/22 14:36 Metamyelocytes # 0.0 K/mm3 01/15/22 14:36 Myelocytes # 0.0 K/mm3 01/15/22 14:36 Promyelocytes # 0.0 K/mm3 01/15/22 14:36 Blast Cells # 0.0 K/mm3 01/15/22 14:36 WBC Morphology Not Reportable 01/15/22 14:36 Hypersegmented Neuts Not Reportable 01/15/22 14:36 Hyposegmented Neuts Not Reportable 01/15/22 14:36 Hypogranular Neuts Not Reportable 01/15/22 14:36 Smudge Cells Not Reportable 01/15/22 14:36 Toxic Granulation Not Reportable 01/15/22 14:36 Toxic Vacuolation Not Reportable 01/15/22 14:36 Dohle Bodies Not Reportable 01/15/22 14:36 Pelger-Huet Anomaly Not Reportable 01/15/22 14:36 Irina Rods Not Reportable 01/15/22 14:36 Platelet Estimate Consistent w auto 01/15/22 14:36 Clumped Platelets Not Reportable 01/15/22 14:36 Plt Clumps, EDTA Not Reportable 01/15/22 14:36 Large Platelets Not Reportable 01/15/22 14:36 Giant Platelets Not Reportable 01/15/22 14:36 Platelet Satelliting Not Reportable 01/15/22 14:36 Plt Morphology Comment Not Reportable 01/15/22 14:36 RBC Morphology Not Reportable 01/15/22 14:36 Dimorphic RBCs Not Reportable 01/15/22 14:36 Polychromasia Not Reportable 01/15/22 14:36 Hypochromasia Not Reportable 01/15/22 14:36 Poikilocytosis Not Reportable 01/15/22 14:36 Anisocytosis 1+ 01/15/22 14:36 Microcytosis Not Reportable 01/15/22 14:36 Macrocytosis Not Reportable 01/15/22 14:36 Spherocytes Not Reportable 01/15/22 14:36 Pappenheimer Bodies Not Reportable 01/15/22 14:36 Sickle Cells Not Reportable 01/15/22 14:36 Target Cells Not Reportable 01/15/22 14:36 Tear Drop Cells Not Reportable 01/15/22 14:36 Ovalocytes Not Reportable 01/15/22 14:36 Helmet Cells Not Reportable 01/15/22 14:36 Odonnell-Harborton Bodies Not Reportable 01/15/22 14:36 Catlett Rings Not Reportable 01/15/22 14:36 [place] Cells Not Reportable 01/15/22 14:36 Bite Cells Not Reportable 01/15/22 14:36 Crenated Cell Not Reportable 01/15/22 14:36 Elliptocytes Not Reportable 01/15/22 14:36 Acanthocytes (Spur) Not Reportable 01/15/22 14:36 Rouleaux Not Reportable 01/15/22 14:36 Hemoglobin C Crystals Not Reportable 01/15/22 14:36 Schistocytes Not Reportable 01/15/22 14:36 Malaria parasites Not Reportable 01/15/22 14:36 Godfrey Bodies Not Reportable 01/15/22 14:36 Hem Pathologist Commnt No 01/15/22 14:36 PT 16.9 Sec. (12.2-14.9) H 01/06/22 04:06 INR 1.23 (0.87-1.13) H 01/06/22 04:06 APTT 29.2 Sec. (24.2-36.6) 11/26/21 05:00 D-Dimer 2655.00 ng/mlDDU (0-234) H 11/11/21 04:28 ABG pH 7.479 pH Units (7.350-7.450) H 12/16/21 20:52 ABG pCO2 37.5 mm Hg 12/16/21 20:52 ABG pO2 79.3 mm Hg (80.0-90.0) L 12/16/21 20:52 ABG HCO3 27.3 mmol/L (20.0-26.0) H 12/16/21 20:52 ABG O2 Saturation 97.0 % (95.0-99.0) 12/16/21 20:52 ABG O2 Content 12.3 (0.0-44) 12/16/21 20:52 ABG Base Excess 3.6 mmol/L (-2.0-3.0) H 12/16/21 20:52 ABG Hemoglobin 9.1 gm/dl (12.0-16.0) L 12/16/21 20:52 ABG Carboxyhemoglobin 1.6 % (0.0-5.0) 12/16/21 20:52 ABG Methemoglobin 0.5 % (0.0-1.5) 12/16/21 20:52 Oxyhemoglobin 94.9 % (95.0-99.0) L 12/16/21 20:52 FiO2 30 % 12/16/21 20:52 Sodium 134 mmol/L (137-145) L 01/16/22 05:21 Potassium 3.6 mmol/L (3.6-5.0) 01/16/22 05:21 Chloride 95.4 mmol/L (98-107) L 01/16/22 05:21 Carbon Dioxide 30 mmol/L (22-30) 01/16/22 05:21 Anion Gap 12 mmol/L 01/16/22 05:21 BUN 24 mg/dL (7-17) H 01/16/22 05:21 Creatinine 0.6 mg/dL (0.6-1.2) 01/16/22 05:21 Estimated GFR > 60 ml/min 01/16/22 05:21 BUN/Creatinine Ratio 40 % 01/16/22 05:21 Glucose 100 mg/dL (65-100) 01/16/22 05:21 POC Glucose 102 mg/dL (70-105) 01/16/22 05:04 Lactic Acid 3.70 mmol/L (0.7-2.0) H* 11/03/21 22:32 Calcium 8.1 mg/dL (8.4-10.2) L 01/16/22 05:21 Phosphorus 3.80 mg/dL (2.5-4.5) 01/05/22 04:30 Magnesium 2.00 mg/dL (1.7-2.3) 01/05/22 04:30 Ferritin 52.6 ng/mL (10.0-200.0) 11/05/21 06:11 Total Bilirubin 0.50 mg/dL (0.1-1.2) 11/17/21 05:56 Direct Bilirubin < 0.2 mg/dL (0-0.2) 11/11/21 04:28 Indirect Bilirubin 0.1 mg/dL 11/11/21 04:28 AST 36 units/L (5-40) 11/17/21 05:56 ALT 47 units/L (7-56) 11/17/21 05:56 Alkaline Phosphatase 107 units/L (35-129) 11/17/21 05:56 Ammonia 42.0 umol/L (25-60) 11/10/21 14:08 Lactate Dehydrogenase 187 units/L (91-180) H 11/05/21 06:11 Troponin T 0.078 ng/mL (0.00-0.029) H 01/15/22 Unknown C-Reactive Protein 22.20 mg/dL (0.00-1.30) H 11/05/21 06:11 NT-Pro-B Natriuret Pep 7895 pg/mL (0-900) H 11/03/21 22:32 Total Protein 5.1 g/dL (6.3-8.2) L 11/17/21 05:56 Albumin 2.2 g/dL (3.9-5) L 11/17/21 05:56 Albumin/Globulin Ratio 0.8 % 11/17/21 05:56 Triglycerides 72 mg/dL (2-149) 01/15/22 21:07 Cholesterol 103 mg/dL (50-199) 01/15/22 21:07 LDL Cholesterol Direct 44 mg/dL (50-130) L 01/15/22 21:07 HDL Cholesterol 46 mg/dL (40-59) 01/15/22 21:07 Cholesterol/HDL Ratio 2.23 % 01/15/22 21:07 Vitamin B12 1823 pg/mL (211-911) H 11/10/21 14:08 TSH 1.510 mlU/mL (0.270-4.200) 11/10/21 14:08 Urine Color Yellow (Yellow) 11/11/21 09:00 Urine Turbidity Slightly-cloudy (Clear) 11/11/21 09:00 Urine pH 5.0 (5.0-7.0) 11/11/21 09:00 Ur Specific [place] 1.009 (1.003-1.030) 11/11/21 09:00 Urine Protein <15 mg/dl mg/dL (Negative) 11/11/21 09:00 Urine Glucose (UA) Neg mg/dL (Negative) 11/11/21 09:00 Urine Ketones Neg mg/dL (Negative) 11/11/21 09:00 Urine Blood Mod (Negative) 11/11/21 09:00 Urine Nitrite Neg (Negative) 11/11/21 09:00 Urine Bilirubin Neg (Negative) 11/11/21 09:00 Urine Urobilinogen < 2.0 mg/dL (<2.0) 11/11/21 09:00 Ur Leukocyte Esterase Neg (Negative) 11/11/21 09:00 Urine WBC (Auto) < 1.0 /HPF (0.0-6.0) 11/11/21 09:00 Urine RBC (Auto) < 1.0 /HPF (0.0-6.0) 11/11/21 09:00 Fluid Type Pleural 01/06/22 13:40 Fluid Color Yellow 01/06/22 13:40 Fluid Appearance Hazy 01/06/22 13:40 Fluid WBC 273 /mm3 01/06/22 13:40 Fluid RBC 45 /mm3 01/06/22 13:40 Fluid Seg Neutrophils 47.0 % 01/06/22 13:40 Fluid Lymphocytes 22.0 % 01/06/22 13:40 Fluid Monocytes 10.0 % 01/06/22 13:40 Fluid Eosinophils 19.0 % 01/06/22 13:40 Fluid Basophils 2.0 % 01/06/22 13:40 Fluid Glucose 96 mg/dL (40-70) H 01/06/22 13:40 Fluid Total Protein < 3.0 (15.0-45.0) L 01/06/22 13:40 Fluid LDH 149 01/06/22 13:40 Vancomycin Trough 15.3 ug/mL (5.0-20.0) 01/16/22 07:30 Random Vancomycin 10.5 ug/mL (0-40.0) 01/04/22 05:00 Coronavirus (PCR) Negative (Negative) 11/10/21 08:30 Blood Type O POSITIVE 12/14/21 10:30 Antibody Screen Negative 12/14/21 10:30 Crossmatch See Detail 12/14/21 10:30 Gamble/IV: Voiding Method External Female Catheter Active Medications - Current Medications Current Medications: Generic Name Dose Route Start Last Admin Trade Name Freq PRN Reason Stop Dose Admin Acetaminophen 650 mg 12/14/21 04:12 01/14/22 01:00 Acetaminophen 325 Mg/10.15 Ml Oral Liqd Unit Dose FEEDTUBE 650 mg Q6H PRN Administration Non Cardiac Pain or Temp>100.5 Hydrocodone Bitart/Acetaminophen 1 each 11/21/21 10:00 01/15/22 21:08 Hydrocodone/Acetaminophen 10-325mg Tab FEEDTUBE 1 each TID YOSSI Administration Alprazolam 0.25 mg 12/30/21 09:00 01/15/22 23:43 Alprazolam 0.25 Mg Tab FEEDTUBE 0.25 mg Q8H PRN Administration Agitation Lipase/Protease/Amylase 1 each 11/08/21 11:09 Lipase 10,500/Protease 25,000/Amylase 43,750 (Units) Cap FEEDTUBE PRN PRN For Clogged Feeding Tube Buspirone HCl 7.5 mg 12/30/21 10:00 01/15/22 21:08 Buspirone 5 Mg Tab FEEDTUBE 7.5 mg BID YOSSI Administration Dextrose 0 ml 11/10/21 10:52 12/30/21 00:48 Dextrose 10% *Hypoglycemia IV 50 ml PRN PRN Administration Hypoglycemia Docusate Sodium 100 mg 12/30/21 10:00 01/15/22 21:08 Docusate Sodium 100 Mg/10 Ml Oral Liqd FEEDTUBE 100 mg BID YOSSI Administration Fentanyl 100 mcg 01/16/22 11:28 Fentanyl 100 Mcg/2 Ml Inj IV 01/16/22 13:00 ONCE NR Furosemide 20 mg 01/08/22 10:00 01/15/22 09:51 Furosemide 20 Mg Tab PO 20 mg QDAY YOSSI Administration Gabapentin 100 mg 12/30/21 10:00 01/15/22 09:52 Gabapentin 100 Mg Cap FEEDTUBE 100 mg QDAY YOSSI Administration Hydrophilic Ointment 1 applic 11/06/21 04:02 Lip Therapy Vaseline TP Q2HR PRN Dry Lips Vancomycin HCl 1 gm in 250 mls @ 166.667 mls/hr 01/04/22 10:00 01/16/22 10:53 Vancomycin/Ns 1 Gm/250 Ml IV 01/26/22 11:29 166.667 mls/hr Q48H YOSSI Administration Lansoprazole 30 mg 11/24/21 22:00 01/15/22 21:10 Lansoprazole 30 Mg Solutab FEEDTUBE 30 mg BID YOSSI Administration Levothyroxine Sodium 125 mcg 12/31/21 06:00 01/16/22 05:36 Levothyroxine 125 Mcg Tab FEEDTUBE 125 mcg DAILY@0600 YOSSI Administration Melatonin 5 mg 12/05/21 22:00 01/15/22 21:08 Melatonin 5 Mg Tab PO 5 mg QHS YOSSI Administration Metoclopramide HCl 10 mg 01/11/22 13:25 01/14/22 14:56 Metoclopramide 10 Mg/2 Ml Inj IV 10 mg Q6H PRN Administration Nausea And Vomiting Metoprolol Tartrate 6.25 mg 12/30/21 10:00 01/15/22 22:58 Metoprolol Tartrate 25 Mg Tab FEEDTUBE Not Given BID YOSSI Midazolam HCl 2 mg 01/16/22 12:00 Midazolam 2 Mg/2 Ml Inj IV 01/16/22 23:59 PREOP NR Midodrine 5 mg 12/30/21 09:00 01/15/22 16:37 Midodrine 5 Mg Tab FEEDTUBE 5 mg TID@0800,1200,1600 [facility] Administration Multi-Ingred Cream/Lotion/Oil/Oint 1 applic 11/06/21 04:02 Mineral Oil/Petrolatum, White Ophth Oint 3.5 Gm OU Q4HR PRN Dry Eye(s) Ondansetron HCl 4 mg 12/05/21 10:00 01/14/22 06:28 Ondansetron 4 Mg/2 Ml Inj IV 4 mg Q8H PRN Administration Nausea And Vomiting Polyethylene Glycol 17 gm 12/30/21 10:00 01/15/22 09:53 Polyethylene Glycol 3350 17 Gm Powder FEEDTUBE Not Given QDAY YOSSI Pravastatin Sodium 20 mg 12/30/21 22:00 01/15/22 21:08 Pravastatin 20 Mg Tab FEEDTUBE 20 mg QHS YOSSI Administration Quetiapine Fumarate 25 mg 12/30/21 10:00 01/15/22 09:52 Quetiapine 25 Mg Tab FEEDTUBE 25 mg QAM YOSSI Administration Quetiapine Fumarate 50 mg 12/30/21 22:00 01/15/22 21:08 Quetiapine 25 Mg Tab FEEDTUBE 50 mg QHS YOSSI Administration Senna 17.6 mg 12/29/21 11:00 01/15/22 21:09 Sennosides Oral Liqd 8.8 Mg/5 Ml Oral Liqd FEEDTUBE Not Given Q12HR YOSSI Simethicone 80 mg 01/15/22 15:06 01/15/22 21:10 Simethicone 80 Mg Chew Tab PO 80 mg PC PRN Administration Gas pain Simple Syrup 15 ml 11/08/21 11:09 Simple Syrup 15 Ml FEEDTUBE PRN PRN Hypoglycemia Simple Syrup 30 ml 11/08/21 11:09 Simple Syrup 15 Ml FEEDTUBE PRN PRN Hypoglycemia Sodium Bicarbonate 325 mg 11/08/21 11:09 01/09/22 20:25 Sodium Bicarbonate 325 Mg Tab FEEDTUBE 325 mg PRN PRN Administration For Clogged Feeding Tube Sodium Chloride 10 ml 11/04/21 10:00 01/15/22 21:09 Sodium Chloride 0.9% 10 Ml Flush Syringe IV 10 ml BID YSOSI Administration Sodium Chloride 10 ml 11/04/21 02:03 01/09/22 06:35 Sodium Chloride 0.9% 10 Ml Flush Syringe IV 10 ml PRN PRN Administration LINE FLUSH Spironolactone 25 mg 12/30/21 10:00 01/15/22 09:50 Spironolactone 25 Mg Tab FEEDTUBE 25 mg QDAY YOSSI Administration Sucralfate 1 gm 12/30/21 12:00 01/16/22 05:36 Sucralfate 1 Gm/10 Ml Oral Liqd FEEDTUBE 1 gm Q6HR YOSSI Administration Trazodone HCl 50 mg 12/04/21 22:00 01/15/22 21:08 Trazodone 50 Mg Tab PO 50 mg QHS YOSSI Administration Nutrition/Malnutrition Assess - Dietary Evaluation Nutrition/Malnutrition Findings: Nutrition Notes Start: 11/04/21 17:16 Freq: Status: Active Protocol: Document 01/10/22 18:16 ISABELL (Rec: 01/10/22 18:44 ISABELL [id number]) Nutrition Notes Initial or Follow up Reassessment Current Diagnosis Diabetes,Heart Failure, Respiratory Failure Other Pertinent Diagnosis Bacteremia, Pneumonia, Bilateral Pleural Effusion, Agitation/Anxiety. Current Diet TF-Vital AF 1.2 Tamir @ 45 ml/hr (since D 12/22). Labs/Tests 01/10: Na 133, Cl 92.6, CO2 31 , BUN 29, Crea 0.5, Glu 115. Pertinent Medications 01/10: Levothyroxine, others nutritionally unremarkable. Height 5 ft Weight 73 kg [place] Body Weight (kg) 45.45 BMI 31.4 Weight change and time frame 0.3 Kg body weight loss in 1 week reported. Weight Status Obese Subjective/Other Information RD consult for routine F/U on TF tolerance. TF continues as prescribed, well tolerated, according to RN notes. Pt continues on Mechanical Ventilation. Procedure on 01/07: US Toracentesis, TF off on 01/06 at 08:14, TF resumed after procedure. Well tolerated, according to RN notes. Pt still waiting for LTAC/SNF placement, unsuccessfully. Percent of energy/protein needs met: 102% Kcal; 89% AA. Burn Absent Trauma Absent GI Symptoms Other Food Allergy No Skin Integrity/Comment Surgical wounds. Current % PO Other Minimum of two criteria No #1 Nutrition Diagnosis Inadequate oral intake Diagnosis Progress(for reassessment Continues documentation) Is patient on ventilator? Yes Is Patient Ambulatory and/or Out of Bed No REE-([facility]-confined to bed) 1334.892 Kcal/Kg value to use for calculation 17 Approximate Energy Requirements Using 1241 kcal/Kg Calculation Used for Recommendations Kcal/kg Additional Notes Protein: 2 g/Kg IBW; 91 g/day. Fluids: 1 ml/Kcal, or as per MD. Nutrition Intervention Nutrition Support: Continue Vital AF 1.2 Tamir @ 45 ml/hr. Flush: 70 ml water Q 4 hr, or as per MD. Kcal 1,296 Protein (gm) 81 Carbohydrates (gm) 119 Fat (gm) 58 Fluid (mL) 876 Fiber (gm) 6 % RDI: 102% Kcal; 89% AA. Goal #1 Provide at least 75% of energy /protein needs through Enteral Feeding during LOS. Goal #2 Maintain body weight within +/ -3% of admission body weight during LOS. Follow-Up By: 01/16/22 Additional Comments Continue monitoring TF tolerance and BM. Mechanical Ventilation status.
--- NOTE | 2022-01-16 12:34 | Operative Report ---
Operative Report Operative Report: Exam: CT-guided placement of chest tube Clinical indication: Patient with recurrent bilateral pleural effusions right greater than left Date: 01/16/2022 Procedure: Following an explanation of the risk, benefits and alternatives; written informed consent was obtained. The patient voiced her understanding and her signed consent. The patient was brought to the CT suite and placed in supine position on the examination table. Initial ice cutter images of the chest were performed following a planned CTA of the chest. Appropriate access site was chosen along the lateral right chest wall. 2% lidocaine was used for anesthesia. Using intermittent CT guidance, a 10 cm 17gauge needle was advanced into the pleural fluid. Positioning was confirmed with CT guidance. A 0.035 guidewire was advanced through the needle and coiled within the pleural space. The needle was removed and following serial dilation, an 8 [place] drainage catheter was advanced over the guidewire and positioned within the pleural fluid. There is prompt return of yellow serous fluid. A sample sent for laboratory analysis. The catheter was securely fastened to the skin surface using 0 silk suture pursestring. The catheter was then placed to Pleur-evac drainage. Sterile dressing was applied. Patient tolerated the procedure well. There were no immediate postprocedure complications. Versed was used for anxiolysis. Continuous cardiopulmonary monitoring was utilized. No sedation was utilized. Impression: CT-guided placement of 8 [place] chest tube in right pleural space.
[2022-01-16] MEDS: GABAPENTIN 100 MG CAP FEEDTUBE SCH (12:55)
[2022-01-16] MEDS: POLYETHYLENE GLYCOL 3350 17 GM POWDER FEEDTUBE SCH (12:55)
[2022-01-16] MEDS: SPIRONOLACTONE 25 MG TAB FEEDTUBE SCH (12:55)
[2022-01-16] MEDS: LANSOPRAZOLE 30 MG SOLUTAB FEEDTUBE SCH ×2 (12:55→21:03)
[2022-01-16] MEDS: busPIRone 5 MG TAB FEEDTUBE SCH ×2 (12:55→21:01)
[2022-01-16] MEDS: FUROSEMIDE 20 MG TAB PO SCH (12:55)
[2022-01-16] MEDS: DOCUSATE SODIUM 100 MG/10 ML ORAL LIQD FEEDTUBE SCH ×2 (12:56→21:02)
[2022-01-16] MEDS: METOPROLOL TARTRATE 25 MG TAB FEEDTUBE SCH ×2 (12:56→21:02)
[2022-01-16] MEDS: SENNOSIDES ORAL LIQD 8.8 MG/5 ML ORAL LIQD FEEDTUBE SCH ×2 (12:57→21:03)
[2022-01-16] MEDS: QUEtiapine 25 MG TAB FEEDTUBE SCH ×2 (12:57→21:03)
--- NOTE | 2022-01-16 13:35 | Cat Scan Report ---
CTA CHEST WITH CONTRAST INDICATION : OMNI 350 100 ML PE rule out. TECHNIQUE: Axial imaging performed through the chest, with contrast bolus timing set to maximize opa cification of the pulmonary arteries. Sagittal and coronal reformatted images. 3-plane MIP reformatte d images were obtained. All CT scans at this location are performed using CT dose reduction for ALAR A by means of automated exposure control. Omnipaque 350 100 mL of intravenous contrast administered. COMPARISON: 03/04/2012 FINDINGS: Bolus: Contrast bolus timing is adequate. PTE: No filling defect is present to suggest PTE. Mediastinum: There is mild cardiomegaly. Severe coronary artery calcifications. No pericardial effus ion. There are moderate atherosclerotic changes throughout the thoracic aorta without acute abnormali ty. Tracheostomy appears in good position. No pathologic mediastinal adenopathy. Lungs: Large bilateral pleural effusions are present, right greater than left, which completely comp ressed both lower lobes. The middle lobe and upper lobes are adequately aerated with no acute abnorma lity or mass. Bones: Osteopenia. There is accentuated thoracic kyphosis with 2 wedge compression deformities in th e lower thoracic spine at approximate levels T10 and T11. The chronicity of these are unclear but thi s appears chronic. There is moderate multilevel thoracic spondylosis. No definite acute fracture. Upper abdomen: Limited imaging of the upper abdomen shows nothing acute. Small ascites is noted. IMPRESSION: No evidence for pulmonary embolus. Mild cardiomegaly. Large bilateral pleural effusions with compression of both lower lobes. Signer Name: Job López Jr, MD Signed: 01/16/2022 1:30 PM Workstation Name: [id number]
--- NOTE | 2022-01-16 15:52 | Progress Note ---
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 She was found to be in respiratory distress, initially treated with NRB. Pt was also noted to be septic with radiographic evidence of bilateral PNA Acute Respiratory Failure Septic Shock GBS Bacteremia Bilateral Pneumonia Bilateral Pleural Effusions Right pneumothorax and s/p right chest tube Acute HFrEF DVT- s/p IVC filter Cardiomyopathy (EF reduced to 30-35% on echo this admission) NSVT Tn Elevation (?Type 2 MN in the setting of hypoxia & shock) Anemia GI bleed CAD s/p PCI (2004) CHB s/p PPM ([facility]) Hypothyroidism H/o HTN H/o DM Arthritis Echo reviewed 11/04/2021 - EF 30-35%, mild diastolic dysfunction, RV mildly dilated, moderate MR, moderate TR, moderate pulmonary HTN w/RVSP 49mmHg, no pericardial effusion, large left pleural effusion. Echo 12/19/2021-EF 35 to 40%. Borderline concentric LVH. Right ventricular systolic function is mildly reduced. Left atrium is mildly dilated. Moderate mitral regurgitation. Large left pleural effusion large right pleural effusion. Moderate tricuspid regurgitation. Severe pulmonary hypertension Plan: Was asked to reassess patient due to new complaint of chest pain. Repeat EKG shows sinus rhythm 85 nonspecific ECG with repolarization abnormality. No acute ischemic changes. Troponins not significantly different than prior EKG not significantly different to prior EKG Patient reports pain currently chest pain-free denies any further complaints of chest pain CT showed no PE but showed large bilateral pleural effusions. Patient went for chest tube insertion today Continue metoprolol 6.25 mg p.o. twice daily. May titrate up as needed Not on ASA d/t allergy. Patient S/p IVC filter Continue statin and lasix Cardiac status otherwise stable we will see as needed Pt seen in conjunction with Dr. Jaramillo who agrees with the assessment and plan of care. 30minutes of critical care time spent on care and coordination of patient - Patient Problems (1) Acute anemia Current Visit: Yes Status: Acute (2) Acute respiratory failure with hypoxia Current Visit: Yes Status: Acute (3) Bilateral pneumonia Current Visit: Yes Status: Acute Subjective Date of service: 01/16/22 Principal diagnosis: Septic shock; AHRF; Anemia; Pneumonia; pleural effusion; HFrEF; Pulm HTN Interval history: Patient has trach is awake with family at bedside Sinus 60s on monitor Objective Vital Signs Temp Pulse Pulse Pulse Pulse Pulse Resp 01/16/22 12:56 74 01/16/22 12:55 73 01/16/22 12:40 112 H 01/16/22 12:25 109 H 01/16/22 12:22 110 H 01/16/22 12:20 110 H 01/16/22 12:15 115 H 01/16/22 12:10 118 H 01/16/22 12:02 110 H 01/16/22 11:22 66 01/16/22 08:16 60 01/16/22 07:00 60 14 01/16/22 06:00 60 7 L 01/16/22 05:00 60 14 01/16/22 04:00 75 14 01/16/22 03:44 97.5 F L 01/16/22 03:18 60 14 01/16/22 03:17 60 01/16/22 03:00 61 14 01/16/22 02:00 60 14 01/16/22 01:00 60 14 01/16/22 00:30 60 01/16/22 00:00 68 60 15 01/15/22 23:33 98.1 F 01/15/22 23:00 67 19 01/15/22 22:23 69 15 01/15/22 22:01 66 21 01/15/22 21:00 77 15 01/15/22 20:59 01/15/22 20:53 72 01/15/22 20:00 64 13 01/15/22 19:54 98.7 F 01/15/22 19:49 61 62 16 01/15/22 19:00 65 17 01/15/22 18:00 63 14 01/15/22 17:01 74 9 L 01/15/22 16:00 98.4 F 64 64 11 L Resp Resp Resp BP BP BP BP 01/16/22 12:56 153/71 01/16/22 12:55 153/71 01/16/22 12:40 153/71 01/16/22 12:25 20 172/68 01/16/22 12:22 20 173/69 01/16/22 12:20 24 178/76 01/16/22 12:15 23 182/84 01/16/22 12:10 20 118/81 01/16/22 12:02 20 183/88 01/16/22 11:22 130/62 01/16/22 08:16 107/49 01/16/22 07:00 94/44 01/16/22 06:00 99/45 01/16/22 05:00 104/50 01/16/22 04:00 109/50 01/16/22 03:44 01/16/22 03:18 01/16/22 03:17 01/16/22 03:00 103/47 01/16/22 02:00 113/51 01/16/22 01:00 108/48 01/16/22 00:30 01/16/22 00:00 131/58 01/15/22 23:33 01/15/22 23:00 117/45 01/15/22 22:23 120/46 01/15/22 22:01 120/46 01/15/22 21:00 179/96 01/15/22 20:59 01/15/22 20:53 178/89 01/15/22 20:00 178/89 01/15/22 19:54 01/15/22 19:49 01/15/22 19:00 158/79 01/15/22 18:00 166/81 01/15/22 17:01 175/112 01/15/22 16:00 129/63 Pulse Ox Pulse Ox Pulse Ox Pulse Ox Pulse Ox 01/16/22 12:56 01/16/22 12:55 01/16/22 12:40 100 01/16/22 12:25 93 01/16/22 12:22 94 01/16/22 12:20 93 01/16/22 12:15 94 01/16/22 12:10 94 01/16/22 12:02 93 01/16/22 11:22 100 01/16/22 08:16 100 99 01/16/22 07:00 98 01/16/22 06:00 98 01/16/22 05:00 100 01/16/22 04:00 98 01/16/22 03:44 01/16/22 03:18 100 01/16/22 03:17 01/16/22 03:00 98 01/16/22 02:00 100 01/16/22 01:00 100 01/16/22 00:30 100 01/16/22 00:00 100 97 01/15/22 23:33 01/15/22 23:00 100 01/15/22 22:23 100 01/15/22 22:01 98 01/15/22 21:00 100 01/15/22 20:59 98 01/15/22 20:53 99 01/15/22 20:00 100 01/15/22 19:54 01/15/22 19:49 100 01/15/22 19:00 100 01/15/22 18:00 100 01/15/22 17:01 98 01/15/22 16:00 100 - Physical Examination General: No Apparent Distress HEENT: Positive: Normocephaly Neck: Positive: neck supple, trachea midline Cardiac: Positive: Reg Rate and Rhythm Lungs: Positive: Decreased Breath Sounds Neuro: Positive: Grossly Intact Abdomen: Positive: Soft Skin: Negative: Rash, Wound Musculoskeletal: No Fluid Collection Extremities: Present: upper extr. pulses, lower extr. pulses - Labs and Meds Lipids 01/15/22 Range/Units 21:07 Triglycerides 72 (2-149) mg/dL Cholesterol 103 (50-199) mg/dL HDL Cholesterol 46 (40-59) mg/dL Cholesterol/HDL Ratio 2.23 % Comprehensive Metabolic Panel 01/15/22 01/16/22 Range/Units Unknown 05:21 Sodium 134 L (137-145) mmol/L Potassium 3.6 (3.6-5.0) mmol/L Chloride 95.4 L (98-107) mmol/L Carbon Dioxide 30 (22-30) mmol/L BUN 24 H (7-17) mg/dL Creatinine 0.6 0.6 (0.6-1.2) mg/dL Glucose 100 (65-100) mg/dL Calcium 8.1 L (8.4-10.2) mg/dL - Imaging and Cardiology EKG: report reviewed, image reviewed Stress echo: report reviewed Echo: report reviewed Cardiac cath: report reviewed - Telemetry EKG Rhythm: Sinus Rhythm - EKG Sinus rhythms and dysrhythmias: sinus rhythm Ventricular dysrhythmias: ventricular premature com - Allied health notes Allied health notes reviewed: RT
[2022-01-16] MEDS: MIDODRINE 5 MG TAB FEEDTUBE SCH ×2 (16:57→16:58)
[2022-01-16] MEDS: HYDROcodone/ACETAMINOPHEN 10-325MG TAB FEEDTUBE SCH ×3 (16:57→20:02)
--- NOTE | 2022-01-16 16:57 | XRay Report ---
CHEST 1 VIEW 01/16/2022 4:31 PM INDICATION / CLINICAL INFORMATION: s/p right chest tube placement. COMPARISON: 01/06/2022 FINDINGS: SUPPORT DEVICES: Stable, satisfactory device positioning. HEART / MEDIASTINUM: Cardiomegaly LUNGS / PLEURA: Diffuse bilateral pulmonary opacities and effusions No pneumothorax. ADDITIONAL FINDINGS: No significant additional findings. IMPRESSION: 1. Diffuse bilateral pulmonary opacities and effusions. Right PICC line tip overlies distal SVC. Smal l right chest tube is noted without large pneumothorax Signer Name: Eduard Hahn MD Signed: 01/16/2022 4:52 PM Workstation Name: [id number]
--- NOTE | 2022-01-16 19:47 | Progress Note ---
Assessment and Plan 81-year-old female with known history of diabetes mellitus, hypertension and arthritis brought to the emergency room via EMS for shortness of breath which has been ongoing for the past 3 days prior to come to the emergency room. Patient has been having some cough and shortness of breath. According to patient's , patient has also been having a fever of about 102.2 F. Upon arrival of EMS patient was found to be tachypneic with O2 saturation of 76% on room air which later improved to 88% on nonrebreather. Work-up in the emergency room , chest x-ray shows bilateral interstitial pulmonary edema with bilateral pleural effusions.. Bibasilar opacities which favors atelectasis. Lab reveals leukocytosis of 29. Hemoglobin of 6.1. Patient received blood transfusion and also checked for COVID-19. Patient Ivy virus test reported negative. Patient intubated and placed on mechanical ventilation. Patient transfered to ICU. Patient undergone thoracentesis and chest tube placement. Patient still on mechanical ventilation. Patient transfered to IMCU. Patient awake. Following simple commands. Patient is presently resting on assist control mechanical ventilation, rate 14, Tidal volume 400,FIO2 30%, PEEP 8 and O2 saturation running 100%. Recommend spontaneous breathing trials. Patient afebrile. No leukocytosis.Blood pressure 128/64, Pulse 67 , respirations 14 Patients recent HGB 8.0 01/15/22 Chest xray 12/11/21 reported Diffuse bilateral pulmonary opacities most significant in the left lung and right upper lung .No pneumothorax. Chest xray done 01/01/22 reported Worsening bilateral pulmonary opacities and e ffusions Chest xray 01/05/22 reported Diffuse bilateral pleuroparenchymal opacities, right greater than left, are similar to the prior exam. No pneumothorax. Patient undergone thoracentesis under Ultrasound guidance. Repeat chest xray post thoracentesis 01/06/22 reported Near complete evacuation of the right pleural effusion. No pneumothorax. Pleural fluid cell count wbc 273, RBC 45 Pleural fluid chemistry Protein less than 3, [id number], Glucose 96. Pleural fluid is transudate. Repeat chest xray 01/16/22 reported Diffuse bilateral pulmonary opacities and effusions. Right PICC line tip overlies distal SVC. Small right chest tube is noted without large pneumothorax Patient is on Vancomycin, Prevacid and Sucralfate. Recommend SCDs. Patient is on tube feeding. I spent critical care time of 35 minutes, reviewing the chart, examine the patient, review lab results, chest xray and talk to respiratory therapy and nursing staff and work out plan of treatment in this critically ill patient. - Patient Problems (1) Acute respiratory failure with hypoxia Current Visit: Yes Status: Acute Plan to address problem: Mechanical ventilation, Assist control rate 14, Tidal volume 400, FIO2 30%, PEEP 8 (2) Bilateral pneumonia Current Visit: Yes Status: Acute Plan to address problem: Patient is on vancomycin. (3) Occult blood positive stool Current Visit: Yes Status: Acute Plan to address problem: Management as per gastroenterology. (4) Acute anemia Current Visit: Yes Status: Acute Plan to address problem: Patient received blood transfusion. (5) Suspected COVID-19 virus infection Current Visit: Yes Status: Acute Plan to address problem: Ivy virus PCR negative. (6) Pleural effusion Current Visit: Yes Status: Acute Plan to address problem: Patient unergone right thoracentesis under ultrasound guidance. Post thoracentesis chest xray reported Near complete evacuation of the right pleural effusion. No pneumothorax. Pleural fluid cell count wbc 273, RBC 45 Pleural fluid chemistry Protein less than 3, [id number], Glucose 96. Pleural fluid is transudate. Subjective Date of service: 01/16/22 Principal diagnosis: Septic shock; AHRF; Anemia; Pneumonia; pleural effusion; HFrEF; Pulm HTN Interval history: 81-year-old female with known history of diabetes mellitus, hypertension and arthritis brought to the emergency room via EMS for shortness of breath which has been ongoing for the past 3 days prior to come to the emergency room. Patient has been having some cough and shortness of breath. According to patient's , patient has also been having a fever of about 102.2 F. Upon arrival of EMS patient was found to be tachypneic with O2 saturation of 76% on room air which later improved to 88% on nonrebreather. Work-up in the emergency room , chest x-ray shows bilateral interstitial pulmon nuzhat edema with bilateral pleural effusions.. Bibasilar opacities which favors atelectasis. Lab reveals leukocytosis of 29. Hemoglobin of 6.1. Patient received blood transfusion and also checked for COVID-19. Patient Ivy virus test reported negative. Patient intubated and placed on mechanical ventilation. Patient transfered to ICU. Patient undergone thoracentesis and chest tube placement. Patient still on mechanical ventilation. Patient transfered to IMCU. Patient awake. Following simple commands. Patient is presently resting on assist control mechanical ventilation, rate 14, Tidal volume 400,FIO2 30%, PEEP 8 and O2 saturation running 100%. Recommend spontaneous breathing trials. Patient afebrile. No leukocytosis.Blood pressure 128/64, Pulse 67 , respirations 14 Patients recent HGB 8.0 01/15/22 Chest xray 12/11/21 reported Diffuse bilateral pulmonary opacities most signific ant in the left lung and right upper lung .No pneumothorax. Chest xray done 01/01/22 reported Worsening bilateral pulmonary opacities and effusions Chest xray 01/05/22 reported Diffuse bilateral pleuroparenchymal opacities, right greater than left, are similar to the prior exam. No pneumothorax. Patient undergone thoracentesis under Ultrasound guidance. Repeat chest xray post thoracentesis 01/06/22 reported Near complete evacuation of the right pleural effusion. No pneumothorax. Pleural fluid cell count wbc 273, RBC 45 Pleural fluid chemistry Protein less than 3, [id number], Glucose 96. Pleural fluid is transudate. Repeat chest xray 01/16/22 reported Diffuse bilateral pulmonary opacities and effusions. Right PICC line tip overlies distal SVC. Small right chest tube is noted without large pneumothorax Patient is on Vancomycin, Prevacid and Sucralfate. Recommend SCDs. Patient is on tube feeding. Objective Vital Signs - 12hr 01/16/22 01/16/22 01/16/22 08:00 08:16 09:00 Temperature 97.8 F Pulse Rate 60 60 60 Pulse Rate [ 71 From Monitor] Pulse Rate [ Intra-Procedure ] Pulse Rate [ Post-Procedure] Pulse Rate [Pre -Procedure] Respiratory 15 15 Rate Respiratory Rate [Intra- Procedure] Respiratory Rate [Post- Procedure] Respiratory Rate [Pre- Procedure] Blood Pressure 107/49 107/49 116/54 Blood Pressure [Intra- Procedure] Blood Pressure [Post-Procedure ] Blood Pressure [Pre-Procedure] O2 Sat by Pulse 100 100 100 Oximetry O2 Sat by Pulse 99 Oximetry [ Assessment] O2 Sat by Pulse Oximetry [ Intra-Procedure ] O2 Sat by Pulse Oximetry [Post -Procedure] O2 Sat by Pulse Oximetry [Pre- Procedure] 01/16/22 01/16/22 01/16/22 10:00 11:00 11:22 Temperature Pulse Rate 60 65 66 Pulse Rate [ From Monitor] Pulse Rate [ Intra-Procedure ] Pulse Rate [ Post-Procedure] Pulse Rate [Pre -Procedure] Respiratory 17 18 Rate Respiratory Rate [Intra- Procedure] Respiratory Rate [Post- Procedure] Respiratory Rate [Pre- Procedure] Blood Pressure 122/53 132/62 130/62 Blood Pressure [Intra- Procedure] Blood Pressure [Post-Procedure ] Blood Pressure [Pre-Procedure] O2 Sat by Pulse 100 100 100 Oximetry O2 Sat by Pulse Oximetry [ Assessment] O2 Sat by Pulse Oximetry [ Intra-Procedure ] O2 Sat by Pulse Oximetry [Post -Procedure] O2 Sat by Pulse Oximetry [Pre- Procedure] 01/16/22 01/16/22 01/16/22 12:00 12:02 12:10 Temperature 98.1 F Pulse Rate 71 Pulse Rate [ From Monitor] Pulse Rate [ 118 H Intra-Procedure ] Pulse Rate [ Post-Procedure] Pulse Rate [Pre 110 H -Procedure] Respiratory Rate Respiratory 20 Rate [Intra- Procedure] Respiratory Rate [Post- Procedure] Respiratory 20 Rate [Pre- Procedure] Blood Pressure Blood Pressure 118/81 [Intra- Procedure] Blood Pressure [Post-Procedure ] Blood Pressure 183/88 [Pre-Procedure] O2 Sat by Pulse Oximetry O2 Sat by Pulse Oximetry [ Assessment] O2 Sat by Pulse 94 Oximetry [ Intra-Procedure ] O2 Sat by Pulse Oximetry [Post -Procedure] O2 Sat by Pulse 93 Oximetry [Pre- Procedure] 01/16/22 01/16/22 01/16/22 12:15 12:20 12:22 Temperature Pulse Rate Pulse Rate [ From Monitor] Pulse Rate [ 115 H 110 H Intra-Procedure ] Pulse Rate [ 110 H Post-Procedure] Pulse Rate [Pre -Procedure] Respiratory Rate Respiratory 23 24 Rate [Intra- Procedure] Respiratory 20 Rate [Post- Procedure] Respiratory Rate [Pre- Procedure] Blood Pressure Blood Pressure 182/84 178/76 [Intra- Procedure] Blood Pressure 173/69 [Post-Procedure ] Blood Pressure [Pre-Procedure] O2 Sat by Pulse Oximetry O2 Sat by Pulse Oximetry [ Assessment] O2 Sat by Pulse 94 93 Oximetry [ Intra-Procedure ] O2 Sat by Pulse 94 Oximetry [Post -Procedure] O2 Sat by Pulse Oximetry [Pre- Procedure] 01/16/22 01/16/22 01/16/22 12:25 12:38 12:40 Temperature Pulse Rate 121 H 112 H Pulse Rate [ From Monitor] Pulse Rate [ Intra-Procedure ] Pulse Rate [ 109 H Post-Procedure] Pulse Rate [Pre -Procedure] Respiratory 16 Rate Respiratory Rate [Intra- Procedure] Respiratory 20 Rate [Post- Procedure] Respiratory Rate [Pre- Procedure] Blood Pressure 130/62 153/71 Blood Pressure [Intra- Procedure] Blood Pressure 172/68 [Post-Procedure ] Blood Pressure [Pre-Procedure] O2 Sat by Pulse 89 100 Oximetry O2 Sat by Pulse Oximetry [ Assessment] O2 Sat by Pulse Oximetry [ Intra-Procedure ] O2 Sat by Pulse 93 Oximetry [Post -Procedure] O2 Sat by Pulse Oximetry [Pre- Procedure] 01/16/22 01/16/22 01/16/22 12:55 12:56 13:00 Temperature Pulse Rate 73 74 75 Pulse Rate [ From Monitor] Pulse Rate [ Intra-Procedure ] Pulse Rate [ Post-Procedure] Pulse Rate [Pre -Procedure] Respiratory 11 L Rate Respiratory Rate [Intra- Procedure] Respiratory Rate [Post- Procedure] Respiratory Rate [Pre- Procedure] Blood Pressure 153/71 153/71 134/56 Blood Pressure [Intra- Procedure] Blood Pressure [Post-Procedure ] Blood Pressure [Pre-Procedure] O2 Sat by Pulse 95 Oximetry O2 Sat by Pulse Oximetry [ Assessment] O2 Sat by Pulse Oximetry [ Intra-Procedure ] O2 Sat by Pulse Oximetry [Post -Procedure] O2 Sat by Pulse Oximetry [Pre- Procedure] 01/16/22 01/16/22 01/16/22 14:00 15:00 16:00 Temperature 97.9 F Pulse Rate 60 60 61 Pulse Rate [ From Monitor] Pulse Rate [ Intra-Procedure ] Pulse Rate [ Post-Procedure] Pulse Rate [Pre -Procedure] Respiratory 9 L 14 14 Rate Respiratory Rate [Intra- Procedure] Respiratory Rate [Post- Procedure] Respiratory Rate [Pre- Procedure] Blood Pressure 144/48 106/47 107/50 Blood Pressure [Intra- Procedure] Blood Pressure [Post-Procedure ] Blood Pressure [Pre-Procedure] O2 Sat by Pulse 98 99 100 Oximetry O2 Sat by Pulse Oximetry [ Assessment] O2 Sat by Pulse Oximetry [ Intra-Procedure ] O2 Sat by Pulse Oximetry [Post -Procedure] O2 Sat by Pulse Oximetry [Pre- Procedure] 01/16/22 01/16/22 01/16/22 16:32 17:00 18:00 Temperature Pulse Rate 61 64 60 Pulse Rate [ From Monitor] Pulse Rate [ Intra-Procedure ] Pulse Rate [ Post-Procedure] Pulse Rate [Pre -Procedure] Respiratory 15 13 Rate Respiratory Rate [Intra- Procedure] Respiratory Rate [Post- Procedure] Respiratory Rate [Pre- Procedure] Blood Pressure 118/60 128/61 135/51 Blood Pressure [Intra- Procedure] Blood Pressure [Post-Procedure ] Blood Pressure [Pre-Procedure] O2 Sat by Pulse 100 100 100 Oximetry O2 Sat by Pulse 100 Oximetry [ Assessment] O2 Sat by Pulse Oximetry [ Intra-Procedure ] O2 Sat by Pulse Oximetry [Post -Procedure] O2 Sat by Pulse Oximetry [Pre- Procedure] 01/16/22 01/16/22 19:00 19:41 Temperature 98.1 F Pulse Rate 60 Pulse Rate [ From Monitor] Pulse Rate [ Intra-Procedure ] Pulse Rate [ Post-Procedure] Pulse Rate [Pre -Procedure] Respiratory 14 Rate Respiratory Rate [Intra- Procedure] Respiratory Rate [Post- Procedure] Respiratory Rate [Pre- Procedure] Blood Pressure 117/55 Blood Pressure [Intra- Procedure] Blood Pressure [Post-Procedure ] Blood Pressure [Pre-Procedure] O2 Sat by Pulse 100 Oximetry O2 Sat by Pulse Oximetry [ Assessment] O2 Sat by Pulse Oximetry [ Intra-Procedure ] O2 Sat by Pulse Oximetry [Post -Procedure] O2 Sat by Pulse Oximetry [Pre- Procedure] Constitutional: no acute distress, alert Eyes: non-icteric ENT: oropharynx moist, other (+ Midline tracheostomy with minimal secretions) Neck: supple, no lymphadenopathy, no JVD Effort: mildly labored Ascultation: Bilateral: diminished breath sounds, rhonchi, other (Right chest tube) Percussion: Bilateral: not dull, dull (bases) Cardiovascular: regular rate and rhythm, other (S1,S2) Gastrointestinal: normoactive bowel sounds, soft, non-tender, non-distended (protuberant) Integumentary: normal Extremities: no cyanosis, pink and warm, pulses normal, edema (upper etremities), anasarca Neurologic: non-focal exam (grossly), pupils equal and round, CN II-XII normal Psychiatric: mood appropriate, anxious CBC and BMP: 01/15/22 Unknown 01/16/22 05:21 ABG, PT/INR, D-dimer: ABG ABG pH 7.479 pH Units (7.350-7.450) H 12/16/21 20:52 ABG pCO2 37.5 mm Hg 12/16/21 20:52 ABG pO2 79.3 mm Hg (80.0-90.0) L 12/16/21 20:52 ABG O2 Saturation 97.0 % (95.0-99.0) 12/16/21 20:52 PT/INR, D-dimer PT 16.9 Sec. (12.2-14.9) H 01/06/22 04:06 INR 1.23 (0.87-1.13) H 01/06/22 04:06 D-Dimer 2655.00 ng/mlDDU (0-234) H 11/11/21 04:28 Abnormal lab findings: Abnormal Labs 11/03/21 11/03/21 11/03/21 22:32 22:32 22:32 WBC 29.3 H RBC 2.93 L Hgb 6.1 L Hct 21.9 L MCV 75 L MCH 21 L MCHC 28 L RDW 19.7 H Plt Count Seg Neuts % (Manual) 97.0 H Lymphocytes % (Manual) 3.0 L Seg Neutrophils # Man 28.4 H Lymphocytes # (Manual) 0.9 L Monocytes # (Manual) PT 18.6 H INR 1.40 H D-Dimer ABG pH ABG pO2 ABG HCO3 ABG O2 Saturation ABG Base Excess ABG Hemoglobin Oxyhemoglobin Sodium Potassium Chloride Carbon Dioxide 20 L BUN 33 H Creatinine Glucose 119 H POC Glucose Lactic Acid Calcium 8.3 L Phosphorus Magnesium AST ALT Alkaline Phosphatase Lactate Dehydrogenase Troponin T 0.035 H C-Reactive Protein NT-Pro-B Natriuret Pep Total Protein Albumin LDL Cholesterol Direct 34 L Vitamin B12 Fluid Glucose Fluid Total Protein Vancomycin Trough Crossmatch 11/03/21 11/03/21 11/03/21 22:32 22:32 23:57 WBC RBC Hgb Hct MCV MCH MCHC RDW Plt Count Seg Neuts % (Manual) Lymphocytes % (Manual) Seg Neutrophils # Man Lymphocytes # (Manual) Monocytes # (Manual) PT INR D-Dimer ABG pH ABG pO2 ABG HCO3 ABG O2 Saturation ABG Base Excess ABG Hemoglobin Oxyhemoglobin Sodium Potassium Chloride Carbon Dioxide BUN Creatinine Glucose POC Glucose Lactic Acid 3.70 H* Calcium Phosphorus Magnesium AST ALT Alkaline Phosphatase 139 H Lactate Dehydrogenase Troponin T C-Reactive Protein NT-Pro-B Natriuret Pep 7895 H Total Protein Albumin 3.5 L LDL Cholesterol Direct Vitamin B12 Fluid Glucose Fluid Total Protein Vancomycin Trough Crossmatch See Detail 11/04/21 11/04/21 11/05/21 00:59 13:58 00:51 WBC 27.9 H RBC 3.28 L Hgb 7.3 L Hct 25.5 L MCV 78 L MCH 22 L MCHC 29 L RDW 19.1 H Plt Count Seg Neuts % (Manual) 96.0 H Lymphocytes % (Manual) 2.0 L Seg Neutrophils # Man 26.8 H Lymphocytes # (Manual) 0.6 L Monocytes # (Manual) PT INR D-Dimer ABG pH ABG pO2 ABG HCO3 ABG O2 Saturation ABG Base Excess ABG Hemoglobin Oxyhemoglobin Sodium Potassium Chloride Carbon Dioxide BUN Creatinine Glucose POC Glucose Lactic Acid Calcium Phosphorus Magnesium AST ALT Alkaline Phosphatase Lactate Dehydrogenase Troponin T 0.051 H D 0.032 H D C-Reactive Protein NT-Pro-B Natriuret Pep Total Protein Albumin LDL Cholesterol Direct Vitamin B12 Fluid Glucose Fluid Total Protein Vancomycin Trough Crossmatch 11/05/21 11/05/21 11/05/21 06:11 06:11 06:11 WBC 31.8 H RBC 3.57 L Hgb 8.0 L Hct 27.7 L MCV 78 L MCH 22 L MCHC 29 L RDW 19.2 H Plt Count Seg Neuts % (Manual) 91.0 H Lymphocytes % (Manual) 4.5 L Seg Neutrophils # Man 28.9 H Lymphocytes # (Manual) Monocytes # (Manual) 1.1 H PT INR D-Dimer 1494.53 H ABG pH ABG pO2 ABG HCO3 ABG O2 Saturation ABG Base Excess ABG Hemoglobin Oxyhemoglobin Sodium Potassium Chloride Carbon Dioxide 19 L BUN 42 H Creatinine Glucose 115 H POC Glucose Lactic Acid Calcium Phosphorus Magnesium AST 43 H ALT Alkaline Phosphatase Lactate Dehydrogenase 187 H Troponin T C-Reactive Protein 22.20 H NT-Pro-B Natriuret Pep Total Protein 6.0 L Albumin 3.2 L LDL Cholesterol Direct Vitamin B12 Fluid Glucose Fluid Total Protein Vancomycin Trough Crossmatch 11/05/21 11/05/21 11/06/21 06:11 12:15 00:30 WBC RBC Hgb Hct MCV MCH MCHC RDW Plt Count Seg Neuts % (Manual) Lymphocytes % (Manual) Seg Neutrophils # Man Lymphocytes # (Manual) Monocytes # (Manual) PT INR D-Dimer ABG pH ABG pO2 ABG HCO3 ABG O2 Saturation ABG Base Excess ABG Hemoglobin Oxyhemoglobin Sodium Potassium Chloride Carbon Dioxide BUN Creatinine Glucose POC Glucose 113 H 69 L Lactic Acid Calcium Phosphorus Magnesium AST ALT Alkaline Phosphatase Lactate Dehydrogenase Troponin T 0.033 H C-Reactive Protein NT-Pro-B Natriuret Pep Total Protein Albumin LDL Cholesterol Direct Vitamin B12 Fluid Glucose Fluid Total Protein Vancomycin Trough Crossmatch 11/06/21 11/06/21 11/06/21 05:50 15:50 15:50 WBC 25.5 H RBC 3.62 L Hgb 8.0 L Hct 27.5 L MCV 76 L MCH 22 L MCHC 29 L RDW 19.6 H Plt Count Seg Neuts % (Manual) 92.0 H Lymphocytes % (Manual) 5.0 L Seg Neutrophils # Man 23.5 H Lymphocytes # (Manual) Monocytes # (Manual) PT INR D-Dimer ABG pH 7.305 L ABG pO2 ABG HCO3 15.8 L ABG O2 Saturation ABG Base Excess -9.6 L ABG Hemoglobin 8.6 L Oxyhemoglobin 94.6 L Sodium Potassium Chloride 113.9 H Carbon Dioxide 17 L BUN 56 H Creatinine Glucose 114 H POC Glucose Lactic Acid Calcium 7.9 L Phosphorus Magnesium AST 1410 H ALT 934 H Alkaline Phosphatase 142 H Lactate Dehydrogenase Troponin T C-Reactive Protein NT-Pro-B Natriuret Pep Total Protein 5.0 L Albumin 2.6 L LDL Cholesterol Direct Vitamin B12 Fluid Glucose Fluid Total Protein Vancomycin Trough Crossmatch 11/07/21 11/07/21 11/07/21 03:30 04:50 08:07 WBC RBC Hgb Hct MCV MCH MCHC RDW Plt Count Seg Neuts % (Manual) Lymphocytes % (Manual) Seg Neutrophils # Man Lymphocytes # (Manual) Monocytes # (Manual) PT INR D-Dimer ABG pH ABG pO2 296.9 H ABG HCO3 18.1 L ABG O2 Saturation 99.5 H ABG Base Excess -5.9 L ABG Hemoglobin 7.6 L Oxyhemoglobin Sodium Potassium Chloride Carbon Dioxide BUN Creatinine Glucose POC Glucose 106 H 108 H Lactic Acid Calcium Phosphorus Magnesium AST ALT Alkaline Phosphatase Lactate Dehydrogenase Troponin T C-Reactive Protein NT-Pro-B Natriuret Pep Total Protein Albumin LDL Cholesterol Direct Vitamin B12 Fluid Glucose Fluid Total Protein Vancomycin Trough Crossmatch 11/08/21 11/08/21 11/08/21 03:10 18:05 23:43 WBC RBC Hgb Hct MCV MCH MCHC RDW Plt Count Seg Neuts % (Manual) Lymphocytes % (Manual) Seg Neutrophils # Man Lymphocytes # (Manual) Monocytes # (Manual) PT INR D-Dimer ABG pH ABG pO2 127.4 H ABG HCO3 ABG O2 Saturation ABG Base Excess -3.4 L ABG Hemoglobin 7.4 L Oxyhemoglobin Sodium Potassium Chloride Carbon Dioxide BUN Creatinine Glucose POC Glucose 113 H 141 H Lactic Acid Calcium Phosphorus Magnesium AST ALT Alkaline Phosphatase Lactate Dehydrogenase Troponin T C-Reactive Protein NT-Pro-B Natriuret Pep Total Protein Albumin LDL Cholesterol Direct Vitamin B12 Fluid Glucose Fluid Total Protein Vancomycin Trough Crossmatch 11/08/21 11/08/21 11/09/21 Unknown Unknown 02:00 WBC 14.5 H RBC 3.35 L Hgb 7.5 L 8.1 L Hct 25.4 L 27.6 L MCV 76 L 76 L MCH 23 L 22 L MCHC RDW 19.9 H 19.9 H Plt Count Seg Neuts % (Manual) Lymphocytes % (Manual) Seg Neutrophils # Man Lymphocytes # (Manual) Monocytes # (Manual) PT INR D-Dimer ABG pH ABG pO2 ABG HCO3 ABG O2 Saturation ABG Base Excess ABG Hemoglobin Oxyhemoglobin Sodium 154 H D Potassium 3.3 L Chloride 120.7 H Carbon Dioxide 20 L BUN 38 H Creatinine Glucose POC Glucose Lactic Acid Calcium 8.3 L Phosphorus Magnesium AST ALT Alkaline Phosphatase Lactate Dehydrogenase Troponin T C-Reactive Protein NT-Pro-B Natriuret Pep Total Protein Albumin LDL Cholesterol Direct Vitamin B12 Fluid Glucose Fluid Total Protein Vancomycin Trough Crossmatch 11/09/21 11/09/21 11/09/21 02:00 02:31 05:12 WBC RBC Hgb Hct MCV MCH MCHC RDW Plt Count Seg Neuts % (Manual) Lymphocytes % (Manual) Seg Neutrophils # Man Lymphocytes # (Manual) Monocytes # (Manual) PT INR D-Dimer ABG pH 7.479 H ABG pO2 121.3 H ABG HCO3 ABG O2 Saturation ABG Base Excess ABG Hemoglobin 7.3 L Oxyhemoglobin Sodium Potassium Chloride 112.5 H Carbon Dioxide BUN 33 H Creatinine Glucose 161 H POC Glucose 135 H Lactic Acid Calcium Phosphorus Magnesium AST 251 H ALT 481 H Alkaline Phosphatase Lactate Dehydrogenase Troponin T C-Reactive Protein NT-Pro-B Natriuret Pep Total Protein 5.0 L Albumin 2.8 L LDL Cholesterol Direct Vitamin B12 Fluid Glucose Fluid Total Protein Vancomycin Trough Crossmatch 11/09/21 11/09/21 11/09/21 11:33 16:32 23:28 WBC RBC Hgb Hct MCV MCH MCHC RDW Plt Count Seg Neuts % (Manual) Lymphocytes % (Manual) Seg Neutrophils # Man Lymphocytes # (Manual) Monocytes # (Manual) PT INR D-Dimer ABG pH ABG pO2 ABG HCO3 ABG O2 Saturation ABG Base Excess ABG Hemoglobin Oxyhemoglobin Sodium Potassium Chloride Carbon Dioxide BUN Creatinine Glucose POC Glucose 132 H 133 H 143 H Lactic Acid Calcium Phosphorus Magnesium AST ALT Alkaline Phosphatase Lactate Dehydrogenase Troponin T C-Reactive Protein NT-Pro-B Natriuret Pep Total Protein Albumin LDL Cholesterol Direct Vitamin B12 Fluid Glucose Fluid Total Protein Vancomycin Trough Crossmatch 11/10/21 11/10/21 11/10/21 04:00 04:00 05:35 WBC 16.0 H RBC 3.61 L Hgb 8.0 L Hct 27.1 L MCV 75 L MCH 22 L MCHC RDW 20.4 H Plt Count Seg Neuts % (Manual) Lymphocytes % (Manual) Seg Neutrophils # Man Lymphocytes # (Manual) Monocytes # (Manual) PT INR D-Dimer ABG pH ABG pO2 ABG HCO3 ABG O2 Saturation ABG Base Excess ABG Hemoglobin Oxyhemoglobin Sodium 149 H Potassium Chloride 114.1 H Carbon Dioxide BUN 31 H Creatinine Glucose 148 H POC Glucose 132 H Lactic Acid Calcium 8.2 L Phosphorus Magnesium AST ALT Alkaline Phosphatase Lactate Dehydrogenase Troponin T C-Reactive Protein NT-Pro-B Natriuret Pep Total Protein Albumin LDL Cholesterol Direct Vitamin B12 Fluid Glucose Fluid Total Protein Vancomycin Trough Crossmatch 11/10/21 11/10/21 11/10/21 11:31 14:08 15:35 WBC RBC Hgb Hct MCV MCH MCHC RDW Plt Count Seg Neuts % (Manual) Lymphocytes % (Manual) Seg Neutrophils # Man Lymphocytes # (Manual) Monocytes # (Manual) PT INR D-Dimer ABG pH ABG pO2 126.6 H ABG HCO3 ABG O2 Saturation ABG Base Excess ABG Hemoglobin 7.4 L Oxyhemoglobin Sodium Potassium Chloride Carbon Dioxide BUN Creatinine Glucose POC Glucose 147 H Lactic Acid Calcium Phosphorus Magnesium AST ALT Alkaline Phosphatase Lactate Dehydrogenase Troponin T C-Reactive Protein NT-Pro-B Natriuret Pep Total Protein Albumin LDL Cholesterol Direct Vitamin B12 1823 H Fluid Glucose Fluid Total Protein Vancomycin Trough Crossmatch 11/10/21 11/11/21 11/11/21 17:53 00:55 04:28 WBC RBC Hgb Hct MCV MCH MCHC RDW Plt Count Seg Neuts % (Manual) Lymphocytes % (Manual) Seg Neutrophils # Man Lymphocytes # (Manual) Monocytes # (Manual) PT INR D-Dimer ABG pH ABG pO2 ABG HCO3 ABG O2 Saturation ABG Base Excess ABG Hemoglobin Oxyhemoglobin Sodium 149 H Potassium Chloride 112.2 H Carbon Dioxide BUN 34 H Creatinine Glucose 148 H POC Glucose 140 H 145 H Lactic Acid Calcium 7.9 L Phosphorus Magnesium AST 53 H ALT 203 H Alkaline Phosphatase Lactate Dehydrogenase Troponin T C-Reactive Protein NT-Pro-B Natriuret Pep Total Protein 4.9 L Albumin 2.6 L LDL Cholesterol Direct Vitamin B12 Fluid Glucose Fluid Total Protein Vancomycin Trough Crossmatch 11/11/21 11/11/21 11/11/21 04:28 04:28 05:28 WBC 20.9 H RBC 3.47 L Hgb 7.5 L Hct 26.0 L MCV 75 L MCH 22 L MCHC 29 L RDW 21.6 H Plt Count 132 L Seg Neuts % (Manual) Lymphocytes % (Manual) Seg Neutrophils # Man Lymphocytes # (Manual) Monocytes # (Manual) PT INR D-Dimer 2655.00 H ABG pH ABG pO2 ABG HCO3 ABG O2 Saturation ABG Base Excess ABG Hemoglobin Oxyhemoglobin Sodium Potassium Chloride Carbon Dioxide BUN Creatinine Glucose POC Glucose 154 H Lactic Acid Calcium Phosphorus Magnesium AST ALT Alkaline Phosphatase Lactate Dehydrogenase Troponin T C-Reactive Protein NT-Pro-B Natriuret Pep Total Protein Albumin LDL Cholesterol Direct Vitamin B12 Fluid Glucose Fluid Total Protein Vancomycin Trough Crossmatch 11/11/21 11/11/21 11/12/21 12:38 18:13 00:14 WBC RBC Hgb Hct MCV MCH MCHC RDW Plt Count Seg Neuts % (Manual) Lymphocytes % (Manual) Seg Neutrophils # Man Lymphocytes # (Manual) Monocytes # (Manual) PT INR D-Dimer ABG pH ABG pO2 ABG HCO3 ABG O2 Saturation ABG Base Excess ABG Hemoglobin Oxyhemoglobin Sodium Potassium Chloride Carbon Dioxide BUN Creatinine Glucose POC Glucose 137 H 108 H 137 H Lactic Acid Calcium Phosphorus Magnesium AST ALT Alkaline Phosphatase Lactate Dehydrogenase Troponin T C-Reactive Protein NT-Pro-B Natriuret Pep Total Protein Albumin LDL Cholesterol Direct Vitamin B12 Fluid Glucose Fluid Total Protein Vancomycin Trough Crossmatch 11/12/21 11/12/21 11/12/21 05:40 06:24 11:12 WBC RBC Hgb Hct MCV MCH MCHC RDW Plt Count Seg Neuts % (Manual) Lymphocytes % (Manual) Seg Neutrophils # Man Lymphocytes # (Manual) Monocytes # (Manual) PT INR D-Dimer ABG pH 7.586 H ABG pO2 150.6 H ABG HCO3 27.2 H ABG O2 Saturation 99.1 H ABG Base Excess 5.2 H ABG Hemoglobin 7.5 L Oxyhemoglobin Sodium Potassium Chloride Carbon Dioxide BUN Creatinine Glucose POC Glucose 132 H 140 H Lactic Acid Calcium Phosphorus Magnesium AST ALT Alkaline Phosphatase Lactate Dehydrogenase Troponin T C-Reactive Protein NT-Pro-B Natriuret Pep Total Protein Albumin LDL Cholesterol Direct Vitamin B12 Fluid Glucose Fluid Total Protein Vancomycin Trough Crossmatch 11/12/21 11/12/21 11/12/21 14:50 14:50 17:13 WBC 19.8 H RBC 3.27 L Hgb 7.1 L Hct 24.5 L MCV 75 L MCH 22 L MCHC 29 L RDW 22.3 H Plt Count Seg Neuts % (Manual) Lymphocytes % (Manual) Seg Neutrophils # Man Lymphocytes # (Manual) Monocytes # (Manual) PT INR D-Dimer ABG pH ABG pO2 ABG HCO3 ABG O2 Saturation ABG Base Excess ABG Hemoglobin Oxyhemoglobin Sodium 150 H Potassium 3.3 L Chloride 112.0 H Carbon Dioxide BUN 40 H Creatinine Glucose 151 H POC Glucose 121 H Lactic Acid Calcium 7.4 L Phosphorus 1.70 L Magnesium 1.40 L AST ALT Alkaline Phosphatase Lactate Dehydrogenase Troponin T C-Reactive Protein NT-Pro-B Natriuret Pep Total Protein Albumin LDL Cholesterol Direct Vitamin B12 Fluid Glucose Fluid Total Protein Vancomycin Trough Crossmatch 11/12/21 11/13/21 11/13/21 23:19 05:34 06:30 WBC RBC Hgb Hct MCV MCH MCHC RDW Plt Count Seg Neuts % (Manual) Lymphocytes % (Manual) Seg Neutrophils # Man Lymphocytes # (Manual) Monocytes # (Manual) PT INR D-Dimer ABG pH ABG pO2 ABG HCO3 ABG O2 Saturation ABG Base Excess ABG Hemoglobin Oxyhemoglobin Sodium 149 H Potassium Chloride 60.0 L Carbon Dioxide BUN 40 H Creatinine Glucose 146 H POC Glucose 113 H 132 H Lactic Acid Calcium 7.3 L Phosphorus Magnesium 2.40 H AST ALT 72 H Alkaline Phosphatase Lactate Dehydrogenase Troponin T C-Reactive Protein NT-Pro-B Natriuret Pep Total Protein 5.2 L Albumin 2.2 L LDL Cholesterol Direct Vitamin B12 Fluid Glucose Fluid Total Protein Vancomycin Trough Crossmatch 11/13/21 11/13/21 11/13/21 06:30 08:30 11:19 WBC 21.2 H RBC 3.12 L Hgb 6.8 L Hct 23.2 L MCV 74 L MCH 22 L MCHC 29 L RDW 22.2 H Plt Count 135 L Seg Neuts % (Manual) Lymphocytes % (Manual) Seg Neutrophils # Man Lymphocytes # (Manual) Monocytes # (Manual) PT INR D-Dimer ABG pH ABG pO2 ABG HCO3 ABG O2 Saturation ABG Base Excess ABG Hemoglobin Oxyhemoglobin Sodium Potassium Chloride Carbon Dioxide BUN Creatinine Glucose POC Glucose 136 H Lactic Acid Calcium Phosphorus Magnesium AST ALT Alkaline Phosphatase Lactate Dehydrogenase Troponin T C-Reactive Protein NT-Pro-B Natriuret Pep Total Protein Albumin LDL Cholesterol Direct Vitamin B12 Fluid Glucose Fluid Total Protein Vancomycin Trough Crossmatch See Detail 11/13/21 11/14/21 11/14/21 18:21 00:01 04:46 WBC 20.0 H RBC 3.41 L Hgb 7.9 L Hct 26.8 L MCV MCH 23 L MCHC 29 L RDW 24.0 H Plt Count Seg Neuts % (Manual) Lymphocytes % (Manual) Seg Neutrophils # Man Lymphocytes # (Manual) Monocytes # (Manual) PT INR D-Dimer ABG pH ABG pO2 ABG HCO3 ABG O2 Saturation ABG Base Excess ABG Hemoglobin Oxyhemoglobin Sodium Potassium Chloride Carbon Dioxide BUN Creatinine Glucose POC Glucose 149 H 141 H Lactic Acid Calcium Phosphorus Magnesium AST ALT Alkaline Phosphatase Lactate Dehydrogenase Troponin T C-Reactive Protein NT-Pro-B Natriuret Pep Total Protein Albumin LDL Cholesterol Direct Vitamin B12 Fluid Glucose Fluid Total Protein Vancomycin Trough Crossmatch 11/14/21 11/14/21 11/14/21 04:46 05:10 11:10 WBC RBC Hgb Hct MCV MCH MCHC RDW Plt Count Seg Neuts % (Manual) Lymphocytes % (Manual) Seg Neutrophils # Man Lymphocytes # (Manual) Monocytes # (Manual) PT INR D-Dimer ABG pH ABG pO2 ABG HCO3 ABG O2 Saturation ABG Base Excess ABG Hemoglobin Oxyhemoglobin Sodium 148 H Potassium Chloride 113.1 H Carbon Dioxide BUN 43 H Creatinine Glucose 140 H POC Glucose 132 H 133 H Lactic Acid Calcium 7.5 L Phosphorus Magnesium AST ALT Alkaline Phosphatase Lactate Dehydrogenase Troponin T C-Reactive Protein NT-Pro-B Natriuret Pep Total Protein Albumin LDL Cholesterol Direct Vitamin B12 Fluid Glucose Fluid Total Protein Vancomycin Trough Crossmatch 11/14/21 11/14/21 11/14/21 16:14 17:48 23:23 WBC RBC Hgb Hct MCV MCH MCHC RDW Plt Count Seg Neuts % (Manual) Lymphocytes % (Manual) Seg Neutrophils # Man Lymphocytes # (Manual) Monocytes # (Manual) PT INR D-Dimer ABG pH ABG pO2 ABG HCO3 28.0 H ABG O2 Saturation ABG Base Excess 3.1 H ABG Hemoglobin 5.8 L Oxyhemoglobin 94.8 L Sodium Potassium Chloride Carbon Dioxide BUN Creatinine Glucose POC Glucose 130 H 136 H Lactic Acid Calcium Phosphorus Magnesium AST ALT Alkaline Phosphatase Lactate Dehydrogenase Troponin T C-Reactive Protein NT-Pro-B Natriuret Pep Total Protein Albumin LDL Cholesterol Direct Vitamin B12 Fluid Glucose Fluid Total Protein Vancomycin Trough Crossmatch 11/15/21 11/15/21 11/15/21 05:20 05:50 05:50 WBC 19.9 H RBC 3.50 L Hgb 8.2 L Hct 27.9 L MCV MCH 23 L MCHC 29 L RDW 24.9 H Plt Count Seg Neuts % (Manual) Lymphocytes % (Manual) Seg Neutrophils # Man Lymphocytes # (Manual) Monocytes # (Manual) PT INR D-Dimer ABG pH ABG pO2 ABG HCO3 ABG O2 Saturation ABG Base Excess ABG Hemoglobin Oxyhemoglobin Sodium 149 H Potassium Chloride 112.0 H Carbon Dioxide BUN 48 H Creatinine Glucose 152 H POC Glucose 137 H Lactic Acid Calcium 7.9 L Phosphorus Magnesium AST ALT Alkaline Phosphatase Lactate Dehydrogenase Troponin T C-Reactive Protein NT-Pro-B Natriuret Pep Total Protein Albumin LDL Cholesterol Direct Vitamin B12 Fluid Glucose Fluid Total Protein Vancomycin Trough Crossmatch 11/15/21 11/15/21 11/15/21 12:12 17:07 23:24 WBC RBC Hgb Hct MCV MCH MCHC RDW Plt Count Seg Neuts % (Manual) Lymphocytes % (Manual) Seg Neutrophils # Man Lymphocytes # (Manual) Monocytes # (Manual) PT INR D-Dimer ABG pH ABG pO2 ABG HCO3 ABG O2 Saturation ABG Base Excess ABG Hemoglobin Oxyhemoglobin Sodium Potassium Chloride Carbon Dioxide BUN Creatinine Glucose POC Glucose 114 H 135 H 123 H Lactic Acid Calcium Phosphorus Magnesium AST ALT Alkaline Phosphatase Lactate Dehydrogenase Troponin T C-Reactive Protein NT-Pro-B Natriuret Pep Total Protein Albumin LDL Cholesterol Direct Vitamin B12 Fluid Glucose Fluid Total Protein Vancomycin Trough Crossmatch 11/16/21 11/16/21 11/16/21 05:21 10:00 10:00 WBC 21.7 H RBC 2.57 L Hgb 6.0 L Hct 20.2 L D MCV MCH 24 L MCHC RDW 26.3 H Plt Count Seg Neuts % (Manual) Lymphocytes % (Manual) Seg Neutrophils # Man Lymphocytes # (Manual) Monocytes # (Manual) PT INR D-Dimer ABG pH ABG pO2 ABG HCO3 ABG O2 Saturation ABG Base Excess ABG Hemoglobin Oxyhemoglobin Sodium 153 H Potassium Chloride 114.9 H Carbon Dioxide BUN 74 H Creatinine Glucose 155 H POC Glucose 127 H Lactic Acid Calcium 8.1 L Phosphorus Magnesium AST ALT Alkaline Phosphatase Lactate Dehydrogenase Troponin T C-Reactive Protein NT-Pro-B Natriuret Pep Total Protein Albumin LDL Cholesterol Direct Vitamin B12 Fluid Glucose Fluid Total Protein Vancomycin Trough Crossmatch 11/16/21 11/16/21 11/16/21 11:34 14:00 15:25 WBC 17.2 H RBC 2.08 L Hgb 4.7 L* Hct 16.2 L* MCV 78 L MCH 23 L MCHC 29 L RDW 26.0 H Plt Count Seg Neuts % (Manual) 87.0 H Lymphocytes % (Manual) 8.0 L Seg Neutrophils # Man 15.0 H Lymphocytes # (Manual) Monocytes # (Manual) 0.9 H PT INR D-Dimer ABG pH ABG pO2 ABG HCO3 ABG O2 Saturation ABG Base Excess ABG Hemoglobin Oxyhemoglobin Sodium Potassium Chloride Carbon Dioxide BUN Creatinine Glucose POC Glucose 131 H Lactic Acid Calcium Phosphorus Magnesium AST ALT Alkaline Phosphatase Lactate Dehydrogenase Troponin T C-Reactive Protein NT-Pro-B Natriuret Pep Total Protein Albumin LDL Cholesterol Direct Vitamin B12 Fluid Glucose Fluid Total Protein Vancomycin Trough Crossmatch See Detail 11/16/21 11/16/21 11/16/21 15:25 17:21 22:43 WBC RBC Hgb 8.6 L D Hct 27.7 L D MCV MCH MCHC RDW Plt Count Seg Neuts % (Manual) Lymphocytes % (Manual) Seg Neutrophils # Man Lymphocytes # (Manual) Monocytes # (Manual) PT INR D-Dimer ABG pH ABG pO2 ABG HCO3 ABG O2 Saturation ABG Base Excess ABG Hemoglobin Oxyhemoglobin Sodium 148 H Potassium Chloride 113.2 H Carbon Dioxide BUN 84 H Creatinine Glucose 164 H POC Glucose 124 H Lactic Acid Calcium 7.6 L Phosphorus Magnesium AST ALT Alkaline Phosphatase Lactate Dehydrogenase Troponin T C-Reactive Protein NT-Pro-B Natriuret Pep Total Protein Albumin LDL Cholesterol Direct Vitamin B12 Fluid Glucose Fluid Total Protein Vancomycin Trough Crossmatch 11/16/21 11/17/21 11/17/21 23:07 05:33 05:56 WBC 25.1 H RBC 3.47 L Hgb 8.7 L Hct 28.5 L MCV MCH 25 L MCHC RDW 22.3 H Plt Count Seg Neuts % (Manual) Lymphocytes % (Manual) Seg Neutrophils # Man Lymphocytes # (Manual) Monocytes # (Manual) PT INR D-Dimer ABG pH ABG pO2 ABG HCO3 ABG O2 Saturation ABG Base Excess ABG Hemoglobin Oxyhemoglobin Sodium Potassium Chloride Carbon Dioxide BUN Creatinine Glucose POC Glucose 128 H 133 H Lactic Acid Calcium Phosphorus Magnesium AST ALT Alkaline Phosphatase Lactate Dehydrogenase Troponin T C-Reactive Protein NT-Pro-B Natriuret Pep Total Protein Albumin LDL Cholesterol Direct Vitamin B12 Fluid Glucose Fluid Total Protein Vancomycin Trough Crossmatch 11/17/21 11/17/21 11/17/21 05:56 11:00 11:55 WBC RBC Hgb 8.3 L Hct 26.9 L MCV MCH MCHC RDW Plt Count Seg Neuts % (Manual) Lymphocytes % (Manual) Seg Neutrophils # Man Lymphocytes # (Manual) Monocytes # (Manual) PT INR D-Dimer ABG pH ABG pO2 ABG HCO3 ABG O2 Saturation ABG Base Excess ABG Hemoglobin Oxyhemoglobin Sodium 151 H Potassium Chloride 113.6 H Carbon Dioxide BUN 85 H Creatinine Glucose 132 H POC Glucose 121 H Lactic Acid Calcium 7.8 L Phosphorus Magnesium AST ALT Alkaline Phosphatase Lactate Dehydrogenase Troponin T C-Reactive Protein NT-Pro-B Natriuret Pep Total Protein 5.1 L Albumin 2.2 L LDL Cholesterol Direct Vitamin B12 Fluid Glucose Fluid Total Protein Vancomycin Trough Crossmatch 11/17/21 11/17/21 11/18/21 18:04 18:55 00:26 WBC RBC Hgb 7.5 L 7.1 L Hct 24.8 L 23.6 L MCV MCH MCHC RDW Plt Count Seg Neuts % (Manual) Lymphocytes % (Manual) Seg Neutrophils # Man Lymphocytes # (Manual) Monocytes # (Manual) PT INR D-Dimer ABG pH ABG pO2 ABG HCO3 ABG O2 Saturation ABG Base Excess ABG Hemoglobin Oxyhemoglobin Sodium Potassium Chloride Carbon Dioxide BUN Creatinine Glucose POC Glucose 144 H Lactic Acid Calcium Phosphorus Magnesium AST ALT Alkaline Phosphatase Lactate Dehydrogenase Troponin T C-Reactive Protein NT-Pro-B Natriuret Pep Total Protein Albumin LDL Cholesterol Direct Vitamin B12 Fluid Glucose Fluid Total Protein Vancomycin Trough Crossmatch 11/18/21 11/18/21 11/18/21 00:43 05:10 05:10 WBC 12.5 H RBC 2.39 L Hgb 6.1 L Hct 20.2 L MCV MCH 25 L MCHC RDW 23.2 H Plt Count Seg Neuts % (Manual) Lymphocytes % (Manual) Seg Neutrophils # Man Lymphocytes # (Manual) Monocytes # (Manual) PT INR D-Dimer ABG pH ABG pO2 ABG HCO3 ABG O2 Saturation ABG Base Excess ABG Hemoglobin Oxyhemoglobin Sodium 131 L D Potassium 2.9 L* D Chloride 97.8 L Carbon Dioxide BUN 58 H Creatinine Glucose 665 H* POC Glucose 139 H Lactic Acid Calcium 7.0 L Phosphorus 2.20 L D Magnesium 1.50 L AST ALT Alkaline Phosphatase Lactate Dehydrogenase Troponin T C-Reactive Protein NT-Pro-B Natriuret Pep Total Protein Albumin LDL Cholesterol Direct Vitamin B12 Fluid Glucose Fluid Total Protein Vancomycin Trough Crossmatch 11/18/21 11/18/21 11/18/21 05:23 07:10 10:45 WBC RBC Hgb Hct MCV MCH MCHC RDW Plt Count Seg Neuts % (Manual) Lymphocytes % (Manual) Seg Neutrophils # Man Lymphocytes # (Manual) Monocytes # (Manual) PT INR D-Dimer ABG pH ABG pO2 ABG HCO3 ABG O2 Saturation ABG Base Excess ABG Hemoglobin Oxyhemoglobin Sodium 148 H D Potassium 3.1 L Chloride 111.9 H Carbon Dioxide BUN 63 H Creatinine Glucose 141 H POC Glucose 124 H Lactic Acid Calcium 8.1 L D Phosphorus Magnesium AST ALT Alkaline Phosphatase Lactate Dehydrogenase Troponin T C-Reactive Protein NT-Pro-B Natriuret Pep Total Protein Albumin LDL Cholesterol Direct Vitamin B12 Fluid Glucose Fluid Total Protein Vancomycin Trough Crossmatch See Detail 11/18/21 11/19/21 11/19/21 11:57 00:19 04:55 WBC RBC 3.35 L Hgb 9.0 L 8.9 L Hct 28.3 L D 28.1 L MCV MCH 27 L MCHC RDW 20.3 H Plt Count Seg Neuts % (Manual) Lymphocytes % (Manual) Seg Neutrophils # Man Lymphocytes # (Manual) Monocytes # (Manual) PT INR D-Dimer ABG pH ABG pO2 ABG HCO3 ABG O2 Saturation ABG Base Excess ABG Hemoglobin Oxyhemoglobin Sodium Potassium Chloride Carbon Dioxide BUN Creatinine Glucose POC Glucose 119 H Lactic Acid Calcium Phosphorus Magnesium AST ALT Alkaline Phosphatase Lactate Dehydrogenase Troponin T C-Reactive Protein NT-Pro-B Natriuret Pep Total Protein Albumin LDL Cholesterol Direct Vitamin B12 Fluid Glucose Fluid Total Protein Vancomycin Trough Crossmatch 11/19/21 11/19/21 11/20/21 04:55 05:42 00:55 WBC RBC Hgb 9.0 L Hct 28.6 L MCV MCH MCHC RDW Plt Count Seg Neuts % (Manual) Lymphocytes % (Manual) Seg Neutrophils # Man Lymphocytes # (Manual) Monocytes # (Manual) PT INR D-Dimer ABG pH ABG pO2 ABG HCO3 ABG O2 Saturation ABG Base Excess ABG Hemoglobin Oxyhemoglobin Sodium Potassium 3.5 L Chloride 108.6 H Carbon Dioxide BUN 47 H Creatinine Glucose 207 H POC Glucose 63 L Lactic Acid Calcium 7.1 L Phosphorus Magnesium AST ALT Alkaline Phosphatase Lactate Dehydrogenase Troponin T C-Reactive Protein NT-Pro-B Natriuret Pep Total Protein Albumin LDL Cholesterol Direct Vitamin B12 Fluid Glucose Fluid Total Protein Vancomycin Trough Crossmatch 11/20/21 11/20/21 11/20/21 05:40 05:40 Unknown WBC RBC 3.40 L Hgb 9.1 L Hct 28.8 L MCV MCH 27 L MCHC RDW 20.7 H Plt Count Seg Neuts % (Manual) Lymphocytes % (Manual) Seg Neutrophils # Man Lymphocytes # (Manual) Monocytes # (Manual) PT INR D-Dimer ABG pH ABG pO2 ABG HCO3 ABG O2 Saturation ABG Base Excess -2.7 L ABG Hemoglobin 9.5 L Oxyhemoglobin 94.3 L Sodium Potassium 3.5 L Chloride 108.9 H Carbon Dioxide BUN 37 H Creatinine Glucose 117 H POC Glucose Lactic Acid Calcium 7.5 L Phosphorus Magnesium AST ALT Alkaline Phosphatase Lactate Dehydrogenase Troponin T C-Reactive Protein NT-Pro-B Natriuret Pep Total Protein Albumin LDL Cholesterol Direct Vitamin B12 Fluid Glucose Fluid Total Protein Vancomycin Trough Crossmatch 11/21/21 11/21/21 11/21/21 04:30 04:30 16:00 WBC RBC 3.25 L Hgb 8.6 L Hct 28.1 L MCV MCH 26 L MCHC RDW 20.7 H Plt Count Seg Neuts % (Manual) Lymphocytes % (Manual) Seg Neutrophils # Man Lymphocytes # (Manual) Monocytes # (Manual) PT INR D-Dimer ABG pH ABG pO2 114.2 H ABG HCO3 ABG O2 Saturation ABG Base Excess ABG Hemoglobin 9.1 L Oxyhemoglobin Sodium 134 L Potassium Chloride Carbon Dioxide 20 L BUN 34 H Creatinine Glucose POC Glucose Lactic Acid Calcium 7.1 L Phosphorus Magnesium AST ALT Alkaline Phosphatase Lactate Dehydrogenase Troponin T C-Reactive Protein NT-Pro-B Natriuret Pep Total Protein Albumin LDL Cholesterol Direct Vitamin B12 Fluid Glucose Fluid Total Protein Vancomycin Trough Crossmatch 11/22/21 11/22/21 11/22/21 07:07 07:07 23:54 WBC RBC 3.30 L Hgb 9.0 L Hct 28.5 L MCV MCH 27 L MCHC RDW 21.0 H Plt Count Seg Neuts % (Manual) Lymphocytes % (Manual) Seg Neutrophils # Man Lymphocytes # (Manual) Monocytes # (Manual) PT INR D-Dimer ABG pH ABG pO2 ABG HCO3 ABG O2 Saturation ABG Base Excess ABG Hemoglobin Oxyhemoglobin Sodium Potassium Chloride Carbon Dioxide BUN 32 H Creatinine Glucose 106 H POC Glucose 110 H Lactic Acid Calcium 7.5 L Phosphorus Magnesium AST ALT Alkaline Phosphatase Lactate Dehydrogenase Troponin T C-Reactive Protein NT-Pro-B Natriuret Pep Total Protein Albumin LDL Cholesterol Direct Vitamin B12 Fluid Glucose Fluid Total Protein Vancomycin Trough Crossmatch 11/23/21 11/23/21 11/23/21 04:38 04:38 06:01 WBC RBC 3.23 L Hgb 8.8 L Hct 28.0 L MCV MCH 27 L MCHC RDW 21.3 H Plt Count Seg Neuts % (Manual) Lymphocytes % (Manual) Seg Neutrophils # Man Lymphocytes # (Manual) Monocytes # (Manual) PT INR D-Dimer ABG pH ABG pO2 ABG HCO3 ABG O2 Saturation ABG Base Excess ABG Hemoglobin Oxyhemoglobin Sodium 136 L Potassium Chloride Carbon Dioxide 20 L BUN 32 H Creatinine Glucose 109 H POC Glucose 115 H Lactic Acid Calcium 7.7 L Phosphorus Magnesium AST ALT Alkaline Phosphatase Lactate Dehydrogenase Troponin T C-Reactive Protein NT-Pro-B Natriuret Pep Total Protein Albumin LDL Cholesterol Direct Vitamin B12 Fluid Glucose Fluid Total Protein Vancomycin Trough Crossmatch 11/23/21 11/24/21 11/24/21 11:40 00:03 04:13 WBC RBC 3.18 L Hgb 8.5 L Hct 27.5 L MCV MCH 27 L MCHC RDW 21.6 H Plt Count Seg Neuts % (Manual) Lymphocytes % (Manual) Seg Neutrophils # Man Lymphocytes # (Manual) Monocytes # (Manual) PT INR D-Dimer ABG pH ABG pO2 ABG HCO3 ABG O2 Saturation ABG Base Excess ABG Hemoglobin Oxyhemoglobin Sodium Potassium Chloride Carbon Dioxide BUN Creatinine Glucose POC Glucose 117 H 111 H Lactic Acid Calcium Phosphorus Magnesium AST ALT Alkaline Phosphatase Lactate Dehydrogenase Troponin T C-Reactive Protein NT-Pro-B Natriuret Pep Total Protein Albumin LDL Cholesterol Direct Vitamin B12 Fluid Glucose Fluid Total Protein Vancomycin Trough Crossmatch 11/24/21 11/24/21 11/24/21 04:13 05:30 11:10 WBC RBC Hgb Hct MCV MCH MCHC RDW Plt Count Seg Neuts % (Manual) Lymphocytes % (Manual) Seg Neutrophils # Man Lymphocytes # (Manual) Monocytes # (Manual) PT INR D-Dimer ABG pH ABG pO2 ABG HCO3 ABG O2 Saturation ABG Base Excess ABG Hemoglobin Oxyhemoglobin Sodium Potassium Chloride Carbon Dioxide BUN 31 H Creatinine Glucose 101 H POC Glucose 115 H 107 H Lactic Acid Calcium 7.7 L Phosphorus Magnesium AST ALT Alkaline Phosphatase Lactate Dehydrogenase Troponin T C-Reactive Protein NT-Pro-B Natriuret Pep Total Protein Albumin LDL Cholesterol Direct Vitamin B12 Fluid Glucose Fluid Total Protein Vancomycin Trough Crossmatch 11/24/21 11/24/21 11/25/21 16:34 17:57 05:12 WBC RBC 3.11 L Hgb 8.2 L Hct 26.6 L MCV MCH 26 L MCHC RDW 21.3 H Plt Count Seg Neuts % (Manual) Lymphocytes % (Manual) Seg Neutrophils # Man Lymphocytes # (Manual) Monocytes # (Manual) PT INR D-Dimer ABG pH ABG pO2 ABG HCO3 ABG O2 Saturation ABG Base Excess ABG Hemoglobin Oxyhemoglobin Sodium Potassium Chloride Carbon Dioxide BUN Creatinine Glucose POC Glucose 115 H 110 H Lactic Acid Calcium Phosphorus Magnesium AST ALT Alkaline Phosphatase Lactate Dehydrogenase Troponin T C-Reactive Protein NT-Pro-B Natriuret Pep Total Protein Albumin LDL Cholesterol Direct Vitamin B12 Fluid Glucose Fluid Total Protein Vancomycin Trough Crossmatch 11/25/21 11/25/21 11/26/21 05:12 11:20 05:00 WBC RBC 3.30 L Hgb 8.8 L Hct 28.2 L MCV MCH 27 L MCHC RDW 20.7 H Plt Count Seg Neuts % (Manual) Lymphocytes % (Manual) Seg Neutrophils # Man Lymphocytes # (Manual) Monocytes # (Manual) PT INR D-Dimer ABG pH ABG pO2 ABG HCO3 ABG O2 Saturation ABG Base Excess ABG Hemoglobin Oxyhemoglobin Sodium Potassium Chloride Carbon Dioxide BUN 32 H Creatinine Glucose 118 H POC Glucose 118 H Lactic Acid Calcium 8.2 L Phosphorus Magnesium AST ALT Alkaline Phosphatase Lactate Dehydrogenase Troponin T C-Reactive Protein NT-Pro-B Natriuret Pep Total Protein Albumin LDL Cholesterol Direct Vitamin B12 Fluid Glucose Fluid Total Protein Vancomycin Trough Crossmatch 11/26/21 11/26/21 11/26/21 05:00 05:00 05:44 WBC RBC Hgb Hct MCV MCH MCHC RDW Plt Count Seg Neuts % (Manual) Lymphocytes % (Manual) Seg Neutrophils # Man Lymphocytes # (Manual) Monocytes # (Manual) PT 16.9 H INR 1.24 H D-Dimer ABG pH ABG pO2 ABG HCO3 ABG O2 Saturation ABG Base Excess ABG Hemoglobin Oxyhemoglobin Sodium Potassium Chloride Carbon Dioxide BUN 31 H Creatinine Glucose 104 H POC Glucose 110 H Lactic Acid Calcium 7.9 L Phosphorus Magnesium AST ALT Alkaline Phosphatase Lactate Dehydrogenase Troponin T C-Reactive Protein NT-Pro-B Natriuret Pep Total Protein Albumin LDL Cholesterol Direct Vitamin B12 Fluid Glucose Fluid Total Protein Vancomycin Trough Crossmatch 11/26/21 11/27/21 11/27/21 23:55 07:40 07:40 WBC RBC 3.18 L Hgb 8.5 L Hct 27.0 L MCV MCH 27 L MCHC RDW 21.2 H Plt Count Seg Neuts % (Manual) Lymphocytes % (Manual) Seg Neutrophils # Man Lymphocytes # (Manual) Monocytes # (Manual) PT INR D-Dimer ABG pH ABG pO2 ABG HCO3 ABG O2 Saturation ABG Base Excess ABG Hemoglobin Oxyhemoglobin Sodium Potassium Chloride Carbon Dioxide BUN 27 H Creatinine Glucose 112 H POC Glucose 63 L Lactic Acid Calcium 7.6 L Phosphorus Magnesium AST ALT Alkaline Phosphatase Lactate Dehydrogenase Troponin T C-Reactive Protein NT-Pro-B Natriuret Pep Total Protein Albumin LDL Cholesterol Direct Vitamin B12 Fluid Glucose Fluid Total Protein Vancomycin Trough Crossmatch 11/27/21 11/27/21 11/27/21 12:04 13:40 13:40 WBC RBC 3.31 L Hgb 8.7 L Hct 28.0 L MCV MCH 26 L MCHC RDW 20.7 H Plt Count Seg Neuts % (Manual) Lymphocytes % (Manual) Seg Neutrophils # Man Lymphocytes # (Manual) Monocytes # (Manual) PT INR D-Dimer ABG pH ABG pO2 ABG HCO3 ABG O2 Saturation ABG Base Excess ABG Hemoglobin Oxyhemoglobin Sodium 136 L Potassium Chloride Carbon Dioxide BUN 25 H Creatinine Glucose 127 H POC Glucose 109 H Lactic Acid Calcium 7.6 L Phosphorus Magnesium 1.40 L AST ALT Alkaline Phosphatase Lactate Dehydrogenase Troponin T C-Reactive Protein NT-Pro-B Natriuret Pep Total Protein Albumin LDL Cholesterol Direct Vitamin B12 Fluid Glucose Fluid Total Protein Vancomycin Trough Crossmatch 11/27/21 11/27/21 11/28/21 17:44 23:33 12:20 WBC RBC Hgb Hct MCV MCH MCHC RDW Plt Count Seg Neuts % (Manual) Lymphocytes % (Manual) Seg Neutrophils # Man Lymphocytes # (Manual) Monocytes # (Manual) PT INR D-Dimer ABG pH ABG pO2 ABG HCO3 ABG O2 Saturation ABG Base Excess ABG Hemoglobin Oxyhemoglobin Sodium Potassium Chloride Carbon Dioxide BUN Creatinine Glucose POC Glucose 107 H 108 H 114 H Lactic Acid Calcium Phosphorus Magnesium AST ALT Alkaline Phosphatase Lactate Dehydrogenase Troponin T C-Reactive Protein NT-Pro-B Natriuret Pep Total Protein Albumin LDL Cholesterol Direct Vitamin B12 Fluid Glucose Fluid Total Protein Vancomycin Trough Crossmatch 11/29/21 11/29/21 11/29/21 00:09 03:20 03:20 WBC RBC 3.05 L Hgb 8.2 L Hct 25.8 L MCV MCH 27 L MCHC RDW 20.9 H Plt Count Seg Neuts % (Manual) Lymphocytes % (Manual) Seg Neutrophils # Man Lymphocytes # (Manual) Monocytes # (Manual) PT INR D-Dimer ABG pH ABG pO2 ABG HCO3 ABG O2 Saturation ABG Base Excess ABG Hemoglobin Oxyhemoglobin Sodium 133 L Potassium Chloride Carbon Dioxide BUN 24 H Creatinine Glucose 137 H POC Glucose 134 H Lactic Acid Calcium 7.4 L Phosphorus Magnesium AST ALT Alkaline Phosphatase Lactate Dehydrogenase Troponin T C-Reactive Protein NT-Pro-B Natriuret Pep Total Protein Albumin LDL Cholesterol Direct Vitamin B12 Fluid Glucose Fluid Total Protein Vancomycin Trough Crossmatch 11/29/21 11/29/21 11/29/21 05:38 11:39 17:11 WBC RBC Hgb Hct MCV MCH MCHC RDW Plt Count Seg Neuts % (Manual) Lymphocytes % (Manual) Seg Neutrophils # Man Lymphocytes # (Manual) Monocytes # (Manual) PT INR D-Dimer ABG pH ABG pO2 ABG HCO3 ABG O2 Saturation ABG Base Excess ABG Hemoglobin Oxyhemoglobin Sodium Potassium Chloride Carbon Dioxide BUN Creatinine Glucose POC Glucose 117 H 143 H 124 H Lactic Acid Calcium Phosphorus Magnesium AST ALT Alkaline Phosphatase Lactate Dehydrogenase Troponin T C-Reactive Protein NT-Pro-B Natriuret Pep Total Protein Albumin LDL Cholesterol Direct Vitamin B12 Fluid Glucose Fluid Total Protein Vancomycin Trough Crossmatch 11/29/21 11/30/21 11/30/21 20:15 05:40 05:40 WBC 12.6 H RBC 3.41 L Hgb 9.1 L Hct 28.9 L MCV MCH 27 L MCHC RDW 20.4 H Plt Count Seg Neuts % (Manual) Lymphocytes % (Manual) Seg Neutrophils # Man Lymphocytes # (Manual) Monocytes # (Manual) PT INR D-Dimer ABG pH ABG pO2 ABG HCO3 ABG O2 Saturation ABG Base Excess ABG Hemoglobin Oxyhemoglobin Sodium Potassium Chloride Carbon Dioxide BUN 24 H Creatinine Glucose 131 H POC Glucose Lactic Acid Calcium 7.6 L Phosphorus Magnesium AST ALT Alkaline Phosphatase Lactate Dehydrogenase Troponin T 0.045 H C-Reactive Protein NT-Pro-B Natriuret Pep Total Protein Albumin LDL Cholesterol Direct 25 L Vitamin B12 Fluid Glucose Fluid Total Protein Vancomycin Trough Crossmatch 11/30/21 11/30/21 12/01/21 11:29 16:51 05:00 WBC RBC 2.97 L Hgb 8.0 L Hct 25.0 L MCV MCH 27 L MCHC RDW 20.8 H Plt Count Seg Neuts % (Manual) Lymphocytes % (Manual) Seg Neutrophils # Man Lymphocytes # (Manual) Monocytes # (Manual) PT INR D-Dimer ABG pH ABG pO2 ABG HCO3 ABG O2 Saturation ABG Base Excess ABG Hemoglobin Oxyhemoglobin Sodium Potassium Chloride Carbon Dioxide BUN Creatinine Glucose POC Glucose 123 H 114 H Lactic Acid Calcium Phosphorus Magnesium AST ALT Alkaline Phosphatase Lactate Dehydrogenase Troponin T C-Reactive Protein NT-Pro-B Natriuret Pep Total Protein Albumin LDL Cholesterol Direct Vitamin B12 Fluid Glucose Fluid Total Protein Vancomycin Trough Crossmatch 12/01/21 12/01/21 12/01/21 05:00 05:25 11:54 WBC RBC Hgb Hct MCV MCH MCHC RDW Plt Count Seg Neuts % (Manual) Lymphocytes % (Manual) Seg Neutrophils # Man Lymphocytes # (Manual) Monocytes # (Manual) PT INR D-Dimer ABG pH ABG pO2 ABG HCO3 ABG O2 Saturation ABG Base Excess ABG Hemoglobin Oxyhemoglobin Sodium 136 L Potassium Chloride Carbon Dioxide BUN 24 H Creatinine Glucose 117 H POC Glucose 108 H 107 H Lactic Acid Calcium 7.5 L Phosphorus Magnesium 1.60 L AST ALT Alkaline Phosphatase Lactate Dehydrogenase Troponin T C-Reactive Protein NT-Pro-B Natriuret Pep Total Protein Albumin LDL Cholesterol Direct Vitamin B12 Fluid Glucose Fluid Total Protein Vancomycin Trough Crossmatch 12/01/21 12/02/21 12/02/21 17:40 00:07 04:20 WBC RBC 2.92 L Hgb 7.7 L Hct 24.3 L MCV MCH 26 L MCHC RDW 20.5 H Plt Count Seg Neuts % (Manual) Lymphocytes % (Manual) Seg Neutrophils # Man Lymphocytes # (Manual) Monocytes # (Manual) PT INR D-Dimer ABG pH ABG pO2 ABG HCO3 ABG O2 Saturation ABG Base Excess ABG Hemoglobin Oxyhemoglobin Sodium Potassium Chloride Carbon Dioxide BUN Creatinine Glucose POC Glucose 123 H 110 H Lactic Acid Calcium Phosphorus Magnesium AST ALT Alkaline Phosphatase Lactate Dehydrogenase Troponin T C-Reactive Protein NT-Pro-B Natriuret Pep Total Protein Albumin LDL Cholesterol Direct Vitamin B12 Fluid Glucose Fluid Total Protein Vancomycin Trough Crossmatch 12/02/21 12/02/21 12/02/21 04:20 11:17 18:20 WBC RBC Hgb Hct MCV MCH MCHC RDW Plt Count Seg Neuts % (Manual) Lymphocytes % (Manual) Seg Neutrophils # Man Lymphocytes # (Manual) Monocytes # (Manual) PT INR D-Dimer ABG pH ABG pO2 ABG HCO3 ABG O2 Saturation ABG Base Excess ABG Hemoglobin Oxyhemoglobin Sodium 135 L Potassium Chloride Carbon Dioxide BUN 26 H Creatinine Glucose 121 H POC Glucose 117 H 113 H Lactic Acid Calcium 7.4 L Phosphorus Magnesium AST ALT Alkaline Phosphatase Lactate Dehydrogenase Troponin T C-Reactive Protein NT-Pro-B Natriuret Pep Total Protein Albumin LDL Cholesterol Direct Vitamin B12 Fluid Glucose Fluid Total Protein Vancomycin Trough Crossmatch 12/03/21 12/03/21 12/03/21 00:12 04:00 04:00 WBC RBC 2.99 L Hgb 7.8 L Hct 24.6 L MCV MCH 26 L MCHC RDW 20.2 H Plt Count Seg Neuts % (Manual) Lymphocytes % (Manual) Seg Neutrophils # Man Lymphocytes # (Manual) Monocytes # (Manual) PT INR D-Dimer ABG pH ABG pO2 ABG HCO3 ABG O2 Saturation ABG Base Excess ABG Hemoglobin Oxyhemoglobin Sodium 136 L Potassium Chloride Carbon Dioxide BUN 27 H Creatinine Glucose 133 H POC Glucose 121 H Lactic Acid Calcium 7.5 L Phosphorus Magnesium AST ALT Alkaline Phosphatase Lactate Dehydrogenase Troponin T C-Reactive Protein NT-Pro-B Natriuret Pep Total Protein Albumin LDL Cholesterol Direct Vitamin B12 Fluid Glucose Fluid Total Protein Vancomycin Trough Crossmatch 12/03/21 12/03/21 12/03/21 06:30 11:13 16:00 WBC RBC Hgb Hct MCV MCH MCHC RDW Plt Count Seg Neuts % (Manual) Lymphocytes % (Manual) Seg Neutrophils # Man Lymphocytes # (Manual) Monocytes # (Manual) PT INR D-Dimer ABG pH ABG pO2 ABG HCO3 ABG O2 Saturation ABG Base Excess ABG Hemoglobin Oxyhemoglobin Sodium Potassium Chloride Carbon Dioxide BUN Creatinine Glucose POC Glucose 129 H 125 H 125 H Lactic Acid Calcium Phosphorus Magnesium AST ALT Alkaline Phosphatase Lactate Dehydrogenase Troponin T C-Reactive Protein NT-Pro-B Natriuret Pep Total Protein Albumin LDL Cholesterol Direct Vitamin B12 Fluid Glucose Fluid Total Protein Vancomycin Trough Crossmatch 12/03/21 12/04/21 12/04/21 23:32 04:00 05:36 WBC RBC Hgb Hct MCV MCH MCHC RDW Plt Count Seg Neuts % (Manual) Lymphocytes % (Manual) Seg Neutrophils # Man Lymphocytes # (Manual) Monocytes # (Manual) PT INR D-Dimer ABG pH ABG pO2 ABG HCO3 ABG O2 Saturation ABG Base Excess ABG Hemoglobin Oxyhemoglobin Sodium Potassium 3.5 L Chloride Carbon Dioxide BUN 26 H Creatinine 0.5 L Glucose 151 H POC Glucose 133 H 142 H Lactic Acid Calcium 8.3 L Phosphorus Magnesium AST ALT Alkaline Phosphatase Lactate Dehydrogenase Troponin T C-Reactive Protein NT-Pro-B Natriuret Pep Total Protein Albumin LDL Cholesterol Direct Vitamin B12 Fluid Glucose Fluid Total Protein Vancomycin Trough Crossmatch 12/04/21 12/04/21 12/05/21 11:24 15:58 04:36 WBC RBC Hgb Hct MCV MCH MCHC RDW Plt Count Seg Neuts % (Manual) Lymphocytes % (Manual) Seg Neutrophils # Man Lymphocytes # (Manual) Monocytes # (Manual) PT INR D-Dimer ABG pH ABG pO2 ABG HCO3 ABG O2 Saturation ABG Base Excess ABG Hemoglobin Oxyhemoglobin Sodium Potassium Chloride Carbon Dioxide BUN 21 H Creatinine 0.5 L Glucose 119 H POC Glucose 130 H 111 H Lactic Acid Calcium 8.3 L Phosphorus Magnesium AST ALT Alkaline Phosphatase Lactate Dehydrogenase Troponin T C-Reactive Protein NT-Pro-B Natriuret Pep Total Protein Albumin LDL Cholesterol Direct Vitamin B12 Fluid Glucose Fluid Total Protein Vancomycin Trough Crossmatch 12/05/21 12/05/21 12/05/21 05:15 10:40 11:12 WBC RBC 2.98 L Hgb 8.1 L Hct 24.6 L MCV MCH 27 L MCHC RDW 20.8 H Plt Count Seg Neuts % (Manual) Lymphocytes % (Manual) Seg Neutrophils # Man Lymphocytes # (Manual) Monocytes # (Manual) PT INR D-Dimer ABG pH ABG pO2 ABG HCO3 ABG O2 Saturation ABG Base Excess ABG Hemoglobin Oxyhemoglobin Sodium Potassium Chloride Carbon Dioxide BUN Creatinine Glucose POC Glucose 107 H 110 H Lactic Acid Calcium Phosphorus Magnesium AST ALT Alkaline Phosphatase Lactate Dehydrogenase Troponin T C-Reactive Protein NT-Pro-B Natriuret Pep Total Protein Albumin LDL Cholesterol Direct Vitamin B12 Fluid Glucose Fluid Total Protein Vancomycin Trough Crossmatch 12/05/21 12/06/21 12/06/21 23:39 04:25 04:25 WBC RBC 2.95 L Hgb 7.9 L Hct 24.7 L MCV MCH 27 L MCHC RDW 20.9 H Plt Count Seg Neuts % (Manual) Lymphocytes % (Manual) Seg Neutrophils # Man Lymphocytes # (Manual) Monocytes # (Manual) PT INR D-Dimer ABG pH ABG pO2 ABG HCO3 ABG O2 Saturation ABG Base Excess ABG Hemoglobin Oxyhemoglobin Sodium Potassium Chloride Carbon Dioxide BUN 22 H Creatinine 0.5 L Glucose 136 H POC Glucose 118 H Lactic Acid Calcium 8.2 L Phosphorus Magnesium AST ALT Alkaline Phosphatase Lactate Dehydrogenase Troponin T C-Reactive Protein NT-Pro-B Natriuret Pep Total Protein Albumin LDL Cholesterol Direct Vitamin B12 Fluid Glucose Fluid Total Protein Vancomycin Trough Crossmatch 12/06/21 12/06/21 12/07/21 05:28 11:27 04:00 WBC RBC Hgb 7.2 L Hct 21.8 L MCV MCH MCHC RDW Plt Count Seg Neuts % (Manual) Lymphocytes % (Manual) Seg Neutrophils # Man Lymphocytes # (Manual) Monocytes # (Manual) PT INR D-Dimer ABG pH ABG pO2 ABG HCO3 ABG O2 Saturation ABG Base Excess ABG Hemoglobin Oxyhemoglobin Sodium Potassium Chloride Carbon Dioxide BUN Creatinine Glucose POC Glucose 142 H 126 H Lactic Acid Calcium Phosphorus Magnesium AST ALT Alkaline Phosphatase Lactate Dehydrogenase Troponin T C-Reactive Protein NT-Pro-B Natriuret Pep Total Protein Albumin LDL Cholesterol Direct Vitamin B12 Fluid Glucose Fluid Total Protein Vancomycin Trough Crossmatch 12/07/21 12/07/21 12/07/21 04:00 05:30 11:12 WBC RBC Hgb Hct MCV MCH MCHC RDW Plt Count Seg Neuts % (Manual) Lymphocytes % (Manual) Seg Neutrophils # Man Lymphocytes # (Manual) Monocytes # (Manual) PT INR D-Dimer ABG pH ABG pO2 ABG HCO3 ABG O2 Saturation ABG Base Excess ABG Hemoglobin Oxyhemoglobin Sodium Potassium Chloride Carbon Dioxide BUN 22 H Creatinine Glucose 119 H POC Glucose 121 H 124 H Lactic Acid Calcium 8.0 L Phosphorus Magnesium AST ALT Alkaline Phosphatase Lactate Dehydrogenase Troponin T C-Reactive Protein NT-Pro-B Natriuret Pep Total Protein Albumin LDL Cholesterol Direct Vitamin B12 Fluid Glucose Fluid Total Protein Vancomycin Trough Crossmatch 12/08/21 12/08/21 12/08/21 04:00 04:00 05:39 WBC RBC 2.81 L Hgb 7.7 L Hct 23.5 L MCV MCH MCHC RDW 21.2 H Plt Count Seg Neuts % (Manual) Lymphocytes % (Manual) Seg Neutrophils # Man Lymphocytes # (Manual) Monocytes # (Manual) PT INR D-Dimer ABG pH ABG pO2 ABG HCO3 ABG O2 Saturation ABG Base Excess ABG Hemoglobin Oxyhemoglobin Sodium 135 L Potassium Chloride Carbon Dioxide BUN 23 H Creatinine Glucose 109 H POC Glucose 112 H Lactic Acid Calcium Phosphorus Magnesium AST ALT Alkaline Phosphatase Lactate Dehydrogenase Troponin T C-Reactive Protein NT-Pro-B Natriuret Pep Total Protein Albumin LDL Cholesterol Direct Vitamin B12 Fluid Glucose Fluid Total Protein Vancomycin Trough Crossmatch 12/08/21 12/09/21 12/09/21 11:03 04:20 04:20 WBC RBC 2.67 L Hgb 7.6 L Hct 22.1 L MCV MCH MCHC RDW 20.8 H Plt Count Seg Neuts % (Manual) Lymphocytes % (Manual) Seg Neutrophils # Man Lymphocytes # (Manual) Monocytes # (Manual) PT INR D-Dimer ABG pH ABG pO2 ABG HCO3 ABG O2 Saturation ABG Base Excess ABG Hemoglobin Oxyhemoglobin Sodium 135 L Potassium Chloride 97.8 L Carbon Dioxide BUN 26 H Creatinine Glucose 119 H POC Glucose 108 H Lactic Acid Calcium 7.7 L Phosphorus Magnesium AST ALT Alkaline Phosphatase Lactate Dehydrogenase Troponin T C-Reactive Protein NT-Pro-B Natriuret Pep Total Protein Albumin LDL Cholesterol Direct Vitamin B12 Fluid Glucose Fluid Total Protein Vancomycin Trough Crossmatch 12/09/21 12/10/21 12/10/21 11:26 04:33 11:12 WBC RBC Hgb Hct MCV MCH MCHC RDW Plt Count Seg Neuts % (Manual) Lymphocytes % (Manual) Seg Neutrophils # Man Lymphocytes # (Manual) Monocytes # (Manual) PT INR D-Dimer ABG pH ABG pO2 ABG HCO3 ABG O2 Saturation ABG Base Excess ABG Hemoglobin Oxyhemoglobin Sodium 136 L Potassium Chloride Carbon Dioxide BUN 27 H Creatinine Glucose 117 H POC Glucose 110 H 117 H Lactic Acid Calcium 8.2 L Phosphorus Magnesium AST ALT Alkaline Phosphatase Lactate Dehydrogenase Troponin T C-Reactive Protein NT-Pro-B Natriuret Pep Total Protein Albumin LDL Cholesterol Direct Vitamin B12 Fluid Glucose Fluid Total Protein Vancomycin Trough Crossmatch 12/10/21 12/10/21 12/11/21 16:02 23:31 04:35 WBC RBC 2.57 L Hgb 7.0 L Hct 21.4 L MCV MCH 27 L MCHC RDW 21.1 H Plt Count Seg Neuts % (Manual) Lymphocytes % (Manual) Seg Neutrophils # Man Lymphocytes # (Manual) Monocytes # (Manual) PT INR D-Dimer ABG pH ABG pO2 ABG HCO3 ABG O2 Saturation ABG Base Excess ABG Hemoglobin Oxyhemoglobin Sodium Potassium Chloride Carbon Dioxide BUN Creatinine Glucose POC Glucose 137 H 111 H Lactic Acid Calcium Phosphorus Magnesium AST ALT Alkaline Phosphatase Lactate Dehydrogenase Troponin T C-Reactive Protein NT-Pro-B Natriuret Pep Total Protein Albumin LDL Cholesterol Direct Vitamin B12 Fluid Glucose Fluid Total Protein Vancomycin Trough Crossmatch 12/11/21 12/11/21 12/11/21 04:35 12:46 16:07 WBC RBC Hgb Hct MCV MCH MCHC RDW Plt Count Seg Neuts % (Manual) Lymphocytes % (Manual) Seg Neutrophils # Man Lymphocytes # (Manual) Monocytes # (Manual) PT INR D-Dimer ABG pH ABG pO2 ABG HCO3 ABG O2 Saturation ABG Base Excess ABG Hemoglobin Oxyhemoglobin Sodium 136 L Potassium Chloride Carbon Dioxide BUN 27 H Creatinine Glucose 112 H POC Glucose 115 H 111 H Lactic Acid Calcium 7.6 L Phosphorus Magnesium AST ALT Alkaline Phosphatase Lactate Dehydrogenase Troponin T C-Reactive Protein NT-Pro-B Natriuret Pep Total Protein Albumin LDL Cholesterol Direct Vitamin B12 Fluid Glucose Fluid Total Protein Vancomycin Trough Crossmatch 12/11/21 12/12/21 12/12/21 23:42 04:30 04:30 WBC RBC 2.60 L Hgb 7.1 L Hct 21.5 L MCV MCH 27 L MCHC RDW 20.3 H Plt Count Seg Neuts % (Manual) Lymphocytes % (Manual) Seg Neutrophils # Man Lymphocytes # (Manual) Monocytes # (Manual) PT INR D-Dimer ABG pH ABG pO2 ABG HCO3 ABG O2 Saturation ABG Base Excess ABG Hemoglobin Oxyhemoglobin Sodium 135 L Potassium Chloride 97.9 L Carbon Dioxide BUN 26 H Creatinine 0.5 L Glucose 138 H POC Glucose 115 H Lactic Acid Calcium 8.2 L Phosphorus Magnesium AST ALT Alkaline Phosphatase Lactate Dehydrogenase Troponin T C-Reactive Protein NT-Pro-B Natriuret Pep Total Protein Albumin LDL Cholesterol Direct Vitamin B12 Fluid Glucose Fluid Total Protein Vancomycin Trough Crossmatch 12/12/21 12/12/21 12/12/21 04:30 05:10 11:51 WBC RBC Hgb Hct MCV MCH MCHC RDW Plt Count Seg Neuts % (Manual) Lymphocytes % (Manual) Seg Neutrophils # Man Lymphocytes # (Manual) Monocytes # (Manual) PT INR D-Dimer ABG pH ABG pO2 ABG HCO3 ABG O2 Saturation ABG Base Excess ABG Hemoglobin Oxyhemoglobin Sodium Potassium Chloride Carbon Dioxide BUN Creatinine Glucose POC Glucose 119 H 119 H Lactic Acid Calcium Phosphorus Magnesium AST ALT Alkaline Phosphatase Lactate Dehydrogenase Troponin T C-Reactive Protein NT-Pro-B Natriuret Pep Total Protein Albumin LDL Cholesterol Direct Vitamin B12 Fluid Glucose Fluid Total Protein Vancomycin Trough Crossmatch See Detail 12/13/21 12/13/21 12/13/21 00:52 04:00 04:00 WBC RBC 2.73 L Hgb 7.4 L Hct 22.8 L MCV MCH 27 L MCHC RDW 20.5 H Plt Count Seg Neuts % (Manual) Lymphocytes % (Manual) Seg Neutrophils # Man Lymphocytes # (Manual) Monocytes # (Manual) PT INR D-Dimer ABG pH ABG pO2 ABG HCO3 ABG O2 Saturation ABG Base Excess ABG Hemoglobin Oxyhemoglobin Sodium 134 L Potassium Chloride 96.7 L Carbon Dioxide BUN 23 H Creatinine 0.5 L Glucose 131 H POC Glucose 131 H Lactic Acid Calcium 8.1 L Phosphorus Magnesium AST ALT Alkaline Phosphatase Lactate Dehydrogenase Troponin T C-Reactive Protein NT-Pro-B Natriuret Pep Total Protein Albumin LDL Cholesterol Direct Vitamin B12 Fluid Glucose Fluid Total Protein Vancomycin Trough Crossmatch 12/13/21 12/13/21 12/13/21 05:23 12:11 17:18 WBC RBC Hgb Hct MCV MCH MCHC RDW Plt Count Seg Neuts % (Manual) Lymphocytes % (Manual) Seg Neutrophils # Man Lymphocytes # (Manual) Monocytes # (Manual) PT INR D-Dimer ABG pH ABG pO2 ABG HCO3 ABG O2 Saturation ABG Base Excess ABG Hemoglobin Oxyhemoglobin Sodium Potassium Chloride Carbon Dioxide BUN Creatinine Glucose POC Glucose 121 H 143 H 148 H Lactic Acid Calcium Phosphorus Magnesium AST ALT Alkaline Phosphatase Lactate Dehydrogenase Troponin T C-Reactive Protein NT-Pro-B Natriuret Pep Total Protein Albumin LDL Cholesterol Direct Vitamin B12 Fluid Glucose Fluid Total Protein Vancomycin Trough Crossmatch 12/14/21 12/14/21 12/14/21 00:54 04:20 04:20 WBC RBC 2.39 L Hgb 6.5 L Hct 20.3 L MCV MCH 27 L MCHC RDW 20.3 H Plt Count Seg Neuts % (Manual) Lymphocytes % (Manual) Seg Neutrophils # Man Lymphocytes # (Manual) Monocytes # (Manual) PT INR D-Dimer ABG pH ABG pO2 ABG HCO3 ABG O2 Saturation ABG Base Excess ABG Hemoglobin Oxyhemoglobin Sodium 130 L Potassium Chloride 93.5 L Carbon Dioxide BUN 25 H Creatinine Glucose 123 H POC Glucose 123 H Lactic Acid Calcium 8.0 L Phosphorus Magnesium AST ALT Alkaline Phosphatase Lactate Dehydrogenase Troponin T C-Reactive Protein NT-Pro-B Natriuret Pep Total Protein Albumin LDL Cholesterol Direct Vitamin B12 Fluid Glucose Fluid Total Protein Vancomycin Trough Crossmatch 12/14/21 12/14/21 12/14/21 05:06 08:17 10:30 WBC RBC Hgb Hct MCV MCH MCHC RDW Plt Count Seg Neuts % (Manual) Lymphocytes % (Manual) Seg Neutrophils # Man Lymphocytes # (Manual) Monocytes # (Manual) PT INR D-Dimer ABG pH ABG pO2 ABG HCO3 ABG O2 Saturation ABG Base Excess ABG Hemoglobin Oxyhemoglobin Sodium Potassium Chloride Carbon Dioxide BUN Creatinine Glucose POC Glucose 131 H 119 H Lactic Acid Calcium Phosphorus Magnesium AST ALT Alkaline Phosphatase Lactate Dehydrogenase Troponin T C-Reactive Protein NT-Pro-B Natriuret Pep Total Protein Albumin LDL Cholesterol Direct Vitamin B12 Fluid Glucose Fluid Total Protein Vancomycin Trough Crossmatch See Detail 12/14/21 12/14/21 12/14/21 12:15 16:37 23:27 WBC RBC Hgb Hct MCV MCH MCHC RDW Plt Count Seg Neuts % (Manual) Lymphocytes % (Manual) Seg Neutrophils # Man Lymphocytes # (Manual) Monocytes # (Manual) PT INR D-Dimer ABG pH ABG pO2 ABG HCO3 ABG O2 Saturation ABG Base Excess ABG Hemoglobin Oxyhemoglobin Sodium Potassium Chloride Carbon Dioxide BUN Creatinine Glucose POC Glucose 147 H 141 H 130 H Lactic Acid Calcium Phosphorus Magnesium AST ALT Alkaline Phosphatase Lactate Dehydrogenase Troponin T C-Reactive Protein NT-Pro-B Natriuret Pep Total Protein Albumin LDL Cholesterol Direct Vitamin B12 Fluid Glucose Fluid Total Protein Vancomycin Trough Crossmatch 12/15/21 12/15/21 12/15/21 05:00 07:00 07:00 WBC 12.3 H RBC 3.27 L Hgb 8.8 L Hct 27.5 L D MCV MCH 27 L MCHC RDW 19.0 H Plt Count Seg Neuts % (Manual) Lymphocytes % (Manual) Seg Neutrophils # Man Lymphocytes # (Manual) Monocytes # (Manual) PT INR D-Dimer ABG pH ABG pO2 ABG HCO3 ABG O2 Saturation ABG Base Excess ABG Hemoglobin Oxyhemoglobin Sodium 134 L Potassium Chloride 95.7 L Carbon Dioxide BUN 28 H Creatinine Glucose 129 H POC Glucose 129 H Lactic Acid Calcium 8.2 L Phosphorus Magnesium AST ALT Alkaline Phosphatase Lactate Dehydrogenase Troponin T C-Reactive Protein NT-Pro-B Natriuret Pep Total Protein Albumin LDL Cholesterol Direct Vitamin B12 Fluid Glucose Fluid Total Protein Vancomycin Trough Crossmatch 12/15/21 12/15/21 12/15/21 11:18 16:00 23:39 WBC RBC Hgb Hct MCV MCH MCHC RDW Plt Count Seg Neuts % (Manual) Lymphocytes % (Manual) Seg Neutrophils # Man Lymphocytes # (Manual) Monocytes # (Manual) PT INR D-Dimer ABG pH ABG pO2 ABG HCO3 ABG O2 Saturation ABG Base Excess ABG Hemoglobin Oxyhemoglobin Sodium Potassium Chloride Carbon Dioxide BUN Creatinine Glucose POC Glucose 139 H 137 H 146 H Lactic Acid Calcium Phosphorus Magnesium AST ALT Alkaline Phosphatase Lactate Dehydrogenase Troponin T C-Reactive Protein NT-Pro-B Natriuret Pep Total Protein Albumin LDL Cholesterol Direct Vitamin B12 Fluid Glucose Fluid Total Protein Vancomycin Trough Crossmatch 12/16/21 12/16/21 12/16/21 05:24 10:21 10:21 WBC 15.3 H RBC 3.24 L Hgb 8.9 L Hct 27.7 L MCV MCH MCHC RDW 19.0 H Plt Count Seg Neuts % (Manual) Lymphocytes % (Manual) Seg Neutrophils # Man Lymphocytes # (Manual) Monocytes # (Manual) PT INR D-Dimer ABG pH ABG pO2 ABG HCO3 ABG O2 Saturation ABG Base Excess ABG Hemoglobin Oxyhemoglobin Sodium 131 L Potassium 3.5 L Chloride 92.7 L Carbon Dioxide BUN 36 H Creatinine Glucose 160 H POC Glucose 121 H Lactic Acid Calcium Phosphorus Magnesium 1.60 L AST ALT Alkaline Phosphatase Lactate Dehydrogenase Troponin T C-Reactive Protein NT-Pro-B Natriuret Pep Total Protein Albumin LDL Cholesterol Direct Vitamin B12 Fluid Glucose Fluid Total Protein Vancomycin Trough Crossmatch 12/16/21 12/16/21 12/16/21 11:21 18:28 20:52 WBC RBC Hgb Hct MCV MCH MCHC RDW Plt Count Seg Neuts % (Manual) Lymphocytes % (Manual) Seg Neutrophils # Man Lymphocytes # (Manual) Monocytes # (Manual) PT INR D-Dimer ABG pH 7.479 H ABG pO2 79.3 L ABG HCO3 27.3 H ABG O2 Saturation ABG Base Excess 3.6 H ABG Hemoglobin 9.1 L Oxyhemoglobin 94.9 L Sodium Potassium Chloride Carbon Dioxide BUN Creatinine Glucose POC Glucose 153 H 132 H Lactic Acid Calcium Phosphorus Magnesium AST ALT Alkaline Phosphatase Lactate Dehydrogenase Troponin T C-Reactive Protein NT-Pro-B Natriuret Pep Total Protein Albumin LDL Cholesterol Direct Vitamin B12 Fluid Glucose Fluid Total Protein Vancomycin Trough Crossmatch 12/16/21 12/17/21 12/17/21 23:30 04:25 04:25 WBC 12.3 H RBC 2.16 L Hgb 6.0 L Hct 18.1 L* D MCV MCH MCHC RDW 19.4 H Plt Count Seg Neuts % (Manual) Lymphocytes % (Manual) Seg Neutrophils # Man Lymphocytes # (Manual) Monocytes # (Manual) PT INR D-Dimer ABG pH ABG pO2 ABG HCO3 ABG O2 Saturation ABG Base Excess ABG Hemoglobin Oxyhemoglobin Sodium 132 L Potassium 3.2 L Chloride 112.0 H Carbon Dioxide BUN 32 H Creatinine Glucose 122 H POC Glucose 137 H Lactic Acid Calcium 6.8 L D Phosphorus Magnesium AST ALT Alkaline Phosphatase Lactate Dehydrogenase Troponin T C-Reactive Protein NT-Pro-B Natriuret Pep Total Protein Albumin LDL Cholesterol Direct Vitamin B12 Fluid Glucose Fluid Total Protein Vancomycin Trough Crossmatch 12/17/21 12/17/21 12/17/21 05:30 11:49 14:45 WBC RBC Hgb 9.7 L D Hct MCV MCH MCHC RDW Plt Count Seg Neuts % (Manual) Lymphocytes % (Manual) Seg Neutrophils # Man Lymphocytes # (Manual) Monocytes # (Manual) PT INR D-Dimer ABG pH ABG pO2 ABG HCO3 ABG O2 Saturation ABG Base Excess ABG Hemoglobin Oxyhemoglobin Sodium Potassium Chloride Carbon Dioxide BUN Creatinine Glucose POC Glucose 137 H 143 H Lactic Acid Calcium Phosphorus Magnesium AST ALT Alkaline Phosphatase Lactate Dehydrogenase Troponin T C-Reactive Protein NT-Pro-B Natriuret Pep Total Protein Albumin LDL Cholesterol Direct Vitamin B12 Fluid Glucose Fluid Total Protein Vancomycin Trough Crossmatch 12/17/21 12/18/21 12/18/21 17:01 05:04 05:04 WBC 13.8 H RBC 3.44 L Hgb 9.9 L Hct 28.8 L MCV MCH MCHC RDW 18.1 H Plt Count Seg Neuts % (Manual) Lymphocytes % (Manual) Seg Neutrophils # Man Lymphocytes # (Manual) Monocytes # (Manual) PT INR D-Dimer ABG pH ABG pO2 ABG HCO3 ABG O2 Saturation ABG Base Excess ABG Hemoglobin Oxyhemoglobin Sodium 132 L Potassium Chloride 97.4 L Carbon Dioxide BUN 38 H Creatinine Glucose 134 H POC Glucose 132 H Lactic Acid Calcium Phosphorus Magnesium AST ALT Alkaline Phosphatase Lactate Dehydrogenase Troponin T C-Reactive Protein NT-Pro-B Natriuret Pep Total Protein Albumin LDL Cholesterol Direct Vitamin B12 Fluid Glucose Fluid Total Protein Vancomycin Trough Crossmatch 12/18/21 12/18/21 12/18/21 05:28 10:57 16:27 WBC RBC Hgb Hct MCV MCH MCHC RDW Plt Count Seg Neuts % (Manual) Lymphocytes % (Manual) Seg Neutrophils # Man Lymphocytes # (Manual) Monocytes # (Manual) PT INR D-Dimer ABG pH ABG pO2 ABG HCO3 ABG O2 Saturation ABG Base Excess ABG Hemoglobin Oxyhemoglobin Sodium Potassium Chloride Carbon Dioxide BUN Creatinine Glucose POC Glucose 118 H 132 H 130 H Lactic Acid Calcium Phosphorus Magnesium AST ALT Alkaline Phosphatase Lactate Dehydrogenase Troponin T C-Reactive Protein NT-Pro-B Natriuret Pep Total Protein Albumin LDL Cholesterol Direct Vitamin B12 Fluid Glucose Fluid Total Protein Vancomycin Trough Crossmatch 12/19/21 12/19/21 12/19/21 00:02 04:41 04:41 WBC 16.0 H RBC 3.45 L Hgb 9.7 L Hct 29.1 L MCV MCH MCHC RDW 17.8 H Plt Count Seg Neuts % (Manual) Lymphocytes % (Manual) Seg Neutrophils # Man Lymphocytes # (Manual) Monocytes # (Manual) PT INR D-Dimer ABG pH ABG pO2 ABG HCO3 ABG O2 Saturation ABG Base Excess ABG Hemoglobin Oxyhemoglobin Sodium 133 L Potassium Chloride 97.9 L Carbon Dioxide BUN 36 H Creatinine 0.5 L Glucose 126 H POC Glucose 127 H Lactic Acid Calcium 8.3 L Phosphorus Magnesium AST ALT Alkaline Phosphatase Lactate Dehydrogenase Troponin T C-Reactive Protein NT-Pro-B Natriuret Pep Total Protein Albumin LDL Cholesterol Direct Vitamin B12 Fluid Glucose Fluid Total Protein Vancomycin Trough Crossmatch 12/19/21 12/19/21 12/19/21 05:26 12:20 16:43 WBC RBC Hgb Hct MCV MCH MCHC RDW Plt Count Seg Neuts % (Manual) Lymphocytes % (Manual) Seg Neutrophils # Man Lymphocytes # (Manual) Monocytes # (Manual) PT INR D-Dimer ABG pH ABG pO2 ABG HCO3 ABG O2 Saturation ABG Base Excess ABG Hemoglobin Oxyhemoglobin Sodium Potassium Chloride Carbon Dioxide BUN Creatinine Glucose POC Glucose 119 H 145 H 126 H Lactic Acid Calcium Phosphorus Magnesium AST ALT Alkaline Phosphatase Lactate Dehydrogenase Troponin T C-Reactive Protein NT-Pro-B Natriuret Pep Total Protein Albumin LDL Cholesterol Direct Vitamin B12 Fluid Glucose Fluid Total Protein Vancomycin Trough Crossmatch 12/19/21 12/20/21 12/20/21 23:30 04:54 04:54 WBC 12.3 H RBC 3.54 L Hgb 10.0 L Hct 29.5 L MCV MCH MCHC RDW 17.8 H Plt Count Seg Neuts % (Manual) 88.0 H Lymphocytes % (Manual) 6.0 L Seg Neutrophils # Man 10.8 H Lymphocytes # (Manual) 0.7 L Monocytes # (Manual) PT INR D-Dimer ABG pH ABG pO2 ABG HCO3 ABG O2 Saturation ABG Base Excess ABG Hemoglobin Oxyhemoglobin Sodium 131 L Potassium Chloride 96.2 L Carbon Dioxide BUN 36 H Creatinine 0.5 L Glucose 130 H POC Glucose 117 H Lactic Acid Calcium Phosphorus Magnesium AST ALT Alkaline Phosphatase Lactate Dehydrogenase Troponin T C-Reactive Protein NT-Pro-B Natriuret Pep Total Protein Albumin LDL Cholesterol Direct Vitamin B12 Fluid Glucose Fluid Total Protein Vancomycin Trough Crossmatch 12/20/21 12/20/21 12/20/21 05:20 11:51 17:30 WBC RBC Hgb Hct MCV MCH MCHC RDW Plt Count Seg Neuts % (Manual) Lymphocytes % (Manual) Seg Neutrophils # Man Lymphocytes # (Manual) Monocytes # (Manual) PT INR D-Dimer ABG pH ABG pO2 ABG HCO3 ABG O2 Saturation ABG Base Excess ABG Hemoglobin Oxyhemoglobin Sodium Potassium Chloride Carbon Dioxide BUN Creatinine Glucose POC Glucose 126 H 119 H 127 H Lactic Acid Calcium Phosphorus Magnesium AST ALT Alkaline Phosphatase Lactate Dehydrogenase Troponin T C-Reactive Protein NT-Pro-B Natriuret Pep Total Protein Albumin LDL Cholesterol Direct Vitamin B12 Fluid Glucose Fluid Total Protein Vancomycin Trough Crossmatch 12/21/21 12/21/21 12/21/21 00:45 04:21 04:21 WBC RBC 3.47 L Hgb 9.4 L Hct 29.2 L MCV MCH 27 L MCHC RDW 18.1 H Plt Count Seg Neuts % (Manual) Lymphocytes % (Manual) Seg Neutrophils # Man Lymphocytes # (Manual) Monocytes # (Manual) PT INR D-Dimer ABG pH ABG pO2 ABG HCO3 ABG O2 Saturation ABG Base Excess ABG Hemoglobin Oxyhemoglobin Sodium 134 L Potassium Chloride Carbon Dioxide BUN 35 H Creatinine 0.5 L Glucose 122 H POC Glucose 125 H Lactic Acid Calcium 8.2 L Phosphorus Magnesium AST ALT Alkaline Phosphatase Lactate Dehydrogenase Troponin T C-Reactive Protein NT-Pro-B Natriuret Pep Total Protein Albumin LDL Cholesterol Direct Vitamin B12 Fluid Glucose Fluid Total Protein Vancomycin Trough Crossmatch 12/21/21 12/21/21 12/21/21 05:38 11:29 16:16 WBC RBC Hgb Hct MCV MCH MCHC RDW Plt Count Seg Neuts % (Manual) Lymphocytes % (Manual) Seg Neutrophils # Man Lymphocytes # (Manual) Monocytes # (Manual) PT INR D-Dimer ABG pH ABG pO2 ABG HCO3 ABG O2 Saturation ABG Base Excess ABG Hemoglobin Oxyhemoglobin Sodium Potassium Chloride Carbon Dioxide BUN Creatinine Glucose POC Glucose 127 H 121 H 113 H Lactic Acid Calcium Phosphorus Magnesium AST ALT Alkaline Phosphatase Lactate Dehydrogenase Troponin T C-Reactive Protein NT-Pro-B Natriuret Pep Total Protein Albumin LDL Cholesterol Direct Vitamin B12 Fluid Glucose Fluid Total Protein Vancomycin Trough Crossmatch 12/22/21 12/22/21 12/23/21 04:58 04:58 06:40 WBC 11.5 H RBC 3.43 L Hgb 9.8 L Hct 28.7 L MCV MCH MCHC RDW 18.5 H 17.9 H Plt Count Seg Neuts % (Manual) Lymphocytes % (Manual) Seg Neutrophils # Man Lymphocytes # (Manual) Monocytes # (Manual) PT INR D-Dimer ABG pH ABG pO2 ABG HCO3 ABG O2 Saturation ABG Base Excess ABG Hemoglobin Oxyhemoglobin Sodium 130 L Potassium Chloride 97.8 L Carbon Dioxide BUN 31 H Creatinine 0.5 L Glucose 122 H POC Glucose Lactic Acid Calcium 7.9 L Phosphorus Magnesium AST ALT Alkaline Phosphatase Lactate Dehydrogenase Troponin T C-Reactive Protein NT-Pro-B Natriuret Pep Total Protein Albumin LDL Cholesterol Direct Vitamin B12 Fluid Glucose Fluid Total Protein Vancomycin Trough Crossmatch 12/23/21 12/23/21 12/24/21 06:40 23:25 04:24 WBC 11.7 H RBC Hgb 9.8 L Hct MCV MCH 26 L MCHC RDW 18.1 H Plt Count Seg Neuts % (Manual) Lymphocytes % (Manual) Seg Neutrophils # Man Lymphocytes # (Manual) Monocytes # (Manual) PT INR D-Dimer ABG pH ABG pO2 ABG HCO3 ABG O2 Saturation ABG Base Excess ABG Hemoglobin Oxyhemoglobin Sodium 136 L Potassium Chloride Carbon Dioxide BUN 27 H Creatinine 0.4 L Glucose 107 H POC Glucose 110 H Lactic Acid Calcium 8.1 L Phosphorus Magnesium AST ALT Alkaline Phosphatase Lactate Dehydrogenase Troponin T C-Reactive Protein NT-Pro-B Natriuret Pep Total Protein Albumin LDL Cholesterol Direct Vitamin B12 Fluid Glucose Fluid Total Protein Vancomycin Trough Crossmatch 12/24/21 12/24/21 12/24/21 04:24 11:08 15:45 WBC RBC Hgb Hct MCV MCH MCHC RDW Plt Count Seg Neuts % (Manual) Lymphocytes % (Manual) Seg Neutrophils # Man Lymphocytes # (Manual) Monocytes # (Manual) PT INR D-Dimer ABG pH ABG pO2 ABG HCO3 ABG O2 Saturation ABG Base Excess ABG Hemoglobin Oxyhemoglobin Sodium 132 L Potassium Chloride Carbon Dioxide BUN 27 H Creatinine 0.3 L Glucose 108 H POC Glucose 116 H 107 H Lactic Acid Calcium Phosphorus Magnesium AST ALT Alkaline Phosphatase Lactate Dehydrogenase Troponin T C-Reactive Protein NT-Pro-B Natriuret Pep Total Protein Albumin LDL Cholesterol Direct Vitamin B12 Fluid Glucose Fluid Total Protein Vancomycin Trough Crossmatch 12/24/21 12/25/21 12/25/21 23:43 05:29 11:48 WBC RBC Hgb Hct MCV MCH MCHC RDW Plt Count Seg Neuts % (Manual) Lymphocytes % (Manual) Seg Neutrophils # Man Lymphocytes # (Manual) Monocytes # (Manual) PT INR D-Dimer ABG pH ABG pO2 ABG HCO3 ABG O2 Saturation ABG Base Excess ABG Hemoglobin Oxyhemoglobin Sodium Potassium Chloride Carbon Dioxide BUN Creatinine Glucose POC Glucose 123 H 107 H 119 H Lactic Acid Calcium Phosphorus Magnesium AST ALT Alkaline Phosphatase Lactate Dehydrogenase Troponin T C-Reactive Protein NT-Pro-B Natriuret Pep Total Protein Albumin LDL Cholesterol Direct Vitamin B12 Fluid Glucose Fluid Total Protein Vancomycin Trough Crossmatch 12/26/21 12/26/21 12/26/21 00:06 05:56 07:51 WBC 11.4 H RBC 3.40 L Hgb 9.3 L Hct 28.3 L MCV MCH 27 L MCHC RDW 18.2 H Plt Count Seg Neuts % (Manual) Lymphocytes % (Manual) Seg Neutrophils # Man Lymphocytes # (Manual) Monocytes # (Manual) PT INR D-Dimer ABG pH ABG pO2 ABG HCO3 ABG O2 Saturation ABG Base Excess ABG Hemoglobin Oxyhemoglobin Sodium Potassium Chloride Carbon Dioxide BUN Creatinine Glucose POC Glucose 133 H 107 H Lactic Acid Calcium Phosphorus Magnesium AST ALT Alkaline Phosphatase Lactate Dehydrogenase Troponin T C-Reactive Protein NT-Pro-B Natriuret Pep Total Protein Albumin LDL Cholesterol Direct Vitamin B12 Fluid Glucose Fluid Total Protein Vancomycin Trough Crossmatch 12/26/21 12/26/21 12/26/21 07:51 11:43 17:06 WBC RBC Hgb Hct MCV MCH MCHC RDW Plt Count Seg Neuts % (Manual) Lymphocytes % (Manual) Seg Neutrophils # Man Lymphocytes # (Manual) Monocytes # (Manual) PT INR D-Dimer ABG pH ABG pO2 ABG HCO3 ABG O2 Saturation ABG Base Excess ABG Hemoglobin Oxyhemoglobin Sodium 136 L Potassium Chloride Carbon Dioxide BUN 25 H Creatinine 0.3 L Glucose 131 H POC Glucose 119 H 128 H Lactic Acid Calcium Phosphorus Magnesium AST ALT Alkaline Phosphatase Lactate Dehydrogenase Troponin T C-Reactive Protein NT-Pro-B Natriuret Pep Total Protein Albumin LDL Cholesterol Direct Vitamin B12 Fluid Glucose Fluid Total Protein Vancomycin Trough Crossmatch 12/28/21 12/28/21 12/29/21 09:05 09:05 04:40 WBC RBC 3.19 L Hgb 8.9 L Hct 26.4 L MCV MCH 27 L MCHC RDW 18.4 H 17.9 H Plt Count Seg Neuts % (Manual) Lymphocytes % (Manual) Seg Neutrophils # Man Lymphocytes # (Manual) Monocytes # (Manual) PT INR D-Dimer ABG pH ABG pO2 ABG HCO3 ABG O2 Saturation ABG Base Excess ABG Hemoglobin Oxyhemoglobin Sodium 135 L Potassium Chloride 97.8 L Carbon Dioxide BUN 18 H Creatinine 0.3 L Glucose POC Glucose Lactic Acid Calcium Phosphorus Magnesium AST ALT Alkaline Phosphatase Lactate Dehydrogenase Troponin T C-Reactive Protein NT-Pro-B Natriuret Pep Total Protein Albumin LDL Cholesterol Direct Vitamin B12 Fluid Glucose Fluid Total Protein Vancomycin Trough Crossmatch 12/29/21 12/29/21 12/30/21 04:40 12:47 04:05 WBC RBC 3.29 L Hgb 8.7 L Hct 27.6 L MCV MCH 27 L MCHC RDW 17.6 H Plt Count Seg Neuts % (Manual) Lymphocytes % (Manual) Seg Neutrophils # Man Lymphocytes # (Manual) Monocytes # (Manual) PT INR D-Dimer ABG pH ABG pO2 ABG HCO3 ABG O2 Saturation ABG Base Excess ABG Hemoglobin Oxyhemoglobin Sodium 136 L Potassium Chloride Carbon Dioxide BUN Creatinine 0.3 L Glucose POC Glucose 67 L Lactic Acid Calcium 8.3 L Phosphorus Magnesium AST ALT Alkaline Phosphatase Lactate Dehydrogenase Troponin T C-Reactive Protein NT-Pro-B Natriuret Pep Total Protein Albumin LDL Cholesterol Direct Vitamin B12 Fluid Glucose Fluid Total Protein Vancomycin Trough Crossmatch 12/30/21 12/31/21 12/31/21 04:05 00:07 04:00 WBC RBC 3.05 L Hgb 8.5 L Hct 25.5 L MCV MCH MCHC RDW 18.2 H Plt Count Seg Neuts % (Manual) Lymphocytes % (Manual) Seg Neutrophils # Man Lymphocytes # (Manual) Monocytes # (Manual) PT INR D-Dimer ABG pH ABG pO2 ABG HCO3 ABG O2 Saturation ABG Base Excess ABG Hemoglobin Oxyhemoglobin Sodium 136 L Potassium 3.5 L Chloride Carbon Dioxide BUN Creatinine 0.4 L Glucose POC Glucose 139 H Lactic Acid Calcium Phosphorus Magnesium 1.50 L AST ALT Alkaline Phosphatase Lactate Dehydrogenase Troponin T C-Reactive Protein NT-Pro-B Natriuret Pep Total Protein Albumin LDL Cholesterol Direct Vitamin B12 Fluid Glucose Fluid Total Protein Vancomycin Trough Crossmatch 12/31/21 12/31/21 12/31/21 04:00 04:52 11:23 WBC RBC Hgb Hct MCV MCH MCHC RDW Plt Count Seg Neuts % (Manual) Lymphocytes % (Manual) Seg Neutrophils # Man Lymphocytes # (Manual) Monocytes # (Manual) PT INR D-Dimer ABG pH ABG pO2 ABG HCO3 ABG O2 Saturation ABG Base Excess ABG Hemoglobin Oxyhemoglobin Sodium Potassium Chloride Carbon Dioxide BUN 19 H Creatinine 0.4 L Glucose 116 H POC Glucose 121 H 116 H Lactic Acid Calcium Phosphorus Magnesium AST ALT Alkaline Phosphatase Lactate Dehydrogenase Troponin T C-Reactive Protein NT-Pro-B Natriuret Pep Total Protein Albumin LDL Cholesterol Direct Vitamin B12 Fluid Glucose Fluid Total Protein Vancomycin Trough Crossmatch 12/31/21 01/01/22 01/01/22 17:42 04:31 04:31 WBC RBC 2.83 L Hgb 7.7 L Hct 23.2 L MCV MCH 27 L MCHC RDW 18.3 H Plt Count Seg Neuts % (Manual) Lymphocytes % (Manual) Seg Neutrophils # Man Lymphocytes # (Manual) Monocytes # (Manual) PT INR D-Dimer ABG pH ABG pO2 ABG HCO3 ABG O2 Saturation ABG Base Excess ABG Hemoglobin Oxyhemoglobin Sodium 135 L Potassium Chloride 97.7 L Carbon Dioxide BUN 21 H Creatinine 0.5 L Glucose 127 H POC Glucose 107 H Lactic Acid Calcium 8.0 L Phosphorus Magnesium AST ALT Alkaline Phosphatase Lactate Dehydrogenase Troponin T C-Reactive Protein NT-Pro-B Natriuret Pep Total Protein Albumin LDL Cholesterol Direct Vitamin B12 Fluid Glucose Fluid Total Protein Vancomycin Trough Crossmatch 01/01/22 01/01/22 01/01/22 05:24 11:25 18:11 WBC RBC Hgb Hct MCV MCH MCHC RDW Plt Count Seg Neuts % (Manual) Lymphocytes % (Manual) Seg Neutrophils # Man Lymphocytes # (Manual) Monocytes # (Manual) PT INR D-Dimer ABG pH ABG pO2 ABG HCO3 ABG O2 Saturation ABG Base Excess ABG Hemoglobin Oxyhemoglobin Sodium Potassium Chloride Carbon Dioxide BUN Creatinine Glucose POC Glucose 124 H 140 H 144 H Lactic Acid Calcium Phosphorus Magnesium AST ALT Alkaline Phosphatase Lactate Dehydrogenase Troponin T C-Reactive Protein NT-Pro-B Natriuret Pep Total Protein Albumin LDL Cholesterol Direct Vitamin B12 Fluid Glucose Fluid Total Protein Vancomycin Trough Crossmatch 01/01/22 01/02/22 01/02/22 23:26 04:01 04:01 WBC RBC 2.57 L Hgb 7.1 L Hct 21.5 L MCV MCH MCHC RDW 18.1 H Plt Count Seg Neuts % (Manual) Lymphocytes % (Manual) Seg Neutrophils # Man Lymphocytes # (Manual) Monocytes # (Manual) PT INR D-Dimer ABG pH ABG pO2 ABG HCO3 ABG O2 Saturation ABG Base Excess ABG Hemoglobin Oxyhemoglobin Sodium 131 L Potassium 3.5 L Chloride 94.8 L Carbon Dioxide BUN 27 H Creatinine Glucose 121 H POC Glucose 121 H Lactic Acid Calcium Phosphorus Magnesium AST ALT Alkaline Phosphatase Lactate Dehydrogenase Troponin T C-Reactive Protein NT-Pro-B Natriuret Pep Total Protein Albumin LDL Cholesterol Direct Vitamin B12 Fluid Glucose Fluid Total Protein Vancomycin Trough Crossmatch 01/02/22 01/02/2222 05:30 11:10 16:08 WBC RBC Hgb Hct MCV MCH MCHC RDW Plt Count Seg Neuts % (Manual) Lymphocytes % (Manual) Seg Neutrophils # Man Lymphocytes # (Manual) Monocytes # (Manual) PT INR D-Dimer ABG pH ABG pO2 ABG HCO3 ABG O2 Saturation ABG Base Excess ABG Hemoglobin Oxyhemoglobin Sodium Potassium Chloride Carbon Dioxide BUN Creatinine Glucose POC Glucose 124 H 117 H 130 H Lactic Acid Calcium Phosphorus Magnesium AST ALT Alkaline Phosphatase Lactate Dehydrogenase Troponin T C-Reactive Protein NT-Pro-B Natriuret Pep Total Protein Albumin LDL Cholesterol Direct Vitamin B12 Fluid Glucose Fluid Total Protein Vancomycin Trough Crossmatch 01/02/22 01/02/22 01/03/22 17:30 23:26 04:53 WBC RBC 2.82 L Hgb 7.7 L Hct 23.4 L MCV MCH 27 L MCHC RDW 18.0 H Plt Count Seg Neuts % (Manual) Lymphocytes % (Manual) Seg Neutrophils # Man Lymphocytes # (Manual) Monocytes # (Manual) PT INR D-Dimer ABG pH ABG pO2 ABG HCO3 ABG O2 Saturation ABG Base Excess ABG Hemoglobin Oxyhemoglobin Sodium Potassium Chloride Carbon Dioxide BUN Creatinine Glucose POC Glucose 114 H Lactic Acid Calcium Phosphorus Magnesium AST ALT Alkaline Phosphatase Lactate Dehydrogenase Troponin T C-Reactive Protein NT-Pro-B Natriuret Pep Total Protein Albumin LDL Cholesterol Direct Vitamin B12 Fluid Glucose Fluid Total Protein Vancomycin Trough 22.8 H Crossmatch 01/03/22 01/03/22 01/03/22 04:53 06:23 17:35 WBC RBC Hgb Hct MCV MCH MCHC RDW Plt Count Seg Neuts % (Manual) Lymphocytes % (Manual) Seg Neutrophils # Man Lymphocytes # (Manual) Monocytes # (Manual) PT INR D-Dimer ABG pH ABG pO2 ABG HCO3 ABG O2 Saturation ABG Base Excess ABG Hemoglobin Oxyhemoglobin Sodium 133 L Potassium Chloride 96.2 L Carbon Dioxide BUN 30 H Creatinine Glucose 107 H POC Glucose 122 H 107 H Lactic Acid Calcium Phosphorus Magnesium AST ALT Alkaline Phosphatase Lactate Dehydrogenase Troponin T C-Reactive Protein NT-Pro-B Natriuret Pep Total Protein Albumin LDL Cholesterol Direct Vitamin B12 Fluid Glucose Fluid Total Protein Vancomycin Trough Crossmatch 01/04/22 01/04/22 01/04/22 04:00 12:32 16:45 WBC RBC Hgb Hct MCV MCH MCHC RDW Plt Count Seg Neuts % (Manual) Lymphocytes % (Manual) Seg Neutrophils # Man Lymphocytes # (Manual) Monocytes # (Manual) PT INR D-Dimer ABG pH ABG pO2 ABG HCO3 ABG O2 Saturation ABG Base Excess ABG Hemoglobin Oxyhemoglobin Sodium 132 L Potassium Chloride 92.8 L Carbon Dioxide BUN 30 H Creatinine Glucose 115 H POC Glucose 111 H 111 H Lactic Acid Calcium Phosphorus Magnesium 1.60 L AST ALT Alkaline Phosphatase Lactate Dehydrogenase Troponin T C-Reactive Protein NT-Pro-B Natriuret Pep Total Protein Albumin LDL Cholesterol Direct Vitamin B12 Fluid Glucose Fluid Total Protein Vancomycin Trough Crossmatch 01/05/22 01/05/22 01/05/22 04:30 04:30 17:04 WBC RBC 3.11 L Hgb 8.4 L Hct 25.5 L MCV MCH 27 L MCHC RDW 17.6 H Plt Count Seg Neuts % (Manual) Lymphocytes % (Manual) Seg Neutrophils # Man Lymphocytes # (Manual) Monocytes # (Manual) PT INR D-Dimer ABG pH ABG pO2 ABG HCO3 ABG O2 Saturation ABG Base Excess ABG Hemoglobin Oxyhemoglobin Sodium 135 L Potassium Chloride 93.6 L Carbon Dioxide BUN 29 H Creatinine Glucose POC Glucose 67 L Lactic Acid Calcium Phosphorus Magnesium AST ALT Alkaline Phosphatase Lactate Dehydrogenase Troponin T C-Reactive Protein NT-Pro-B Natriuret Pep Total Protein Albumin LDL Cholesterol Direct Vitamin B12 Fluid Glucose Fluid Total Protein Vancomycin Trough Crossmatch 01/05/22 01/06/22 01/06/22 23:27 04:06 04:06 WBC RBC 2.89 L Hgb 7.7 L Hct 23.8 L MCV MCH 27 L MCHC RDW 18.0 H Plt Count Seg Neuts % (Manual) Lymphocytes % (Manual) Seg Neutrophils # Man Lymphocytes # (Manual) Monocytes # (Manual) PT 16.9 H INR 1.23 H D-Dimer ABG pH ABG pO2 ABG HCO3 ABG O2 Saturation ABG Base Excess ABG Hemoglobin Oxyhemoglobin Sodium Potassium Chloride Carbon Dioxide BUN Creatinine Glucose POC Glucose 110 H Lactic Acid Calcium Phosphorus Magnesium AST ALT Alkaline Phosphatase Lactate Dehydrogenase Troponin T C-Reactive Protein NT-Pro-B Natriuret Pep Total Protein Albumin LDL Cholesterol Direct Vitamin B12 Fluid Glucose Fluid Total Protein Vancomycin Trough Crossmatch 01/06/22 01/06/22 01/06/22 04:06 13:40 23:41 WBC RBC Hgb Hct MCV MCH MCHC RDW Plt Count Seg Neuts % (Manual) Lymphocytes % (Manual) Seg Neutrophils # Man Lymphocytes # (Manual) Monocytes # (Manual) PT INR D-Dimer ABG pH ABG pO2 ABG HCO3 ABG O2 Saturation ABG Base Excess ABG Hemoglobin Oxyhemoglobin Sodium 132 L Potassium Chloride 92.3 L Carbon Dioxide BUN 26 H Creatinine Glucose 111 H POC Glucose 120 H Lactic Acid Calcium Phosphorus Magnesium AST ALT Alkaline Phosphatase Lactate Dehydrogenase Troponin T C-Reactive Protein NT-Pro-B Natriuret Pep Total Protein Albumin LDL Cholesterol Direct Vitamin B12 Fluid Glucose 96 H Fluid Total Protein < 3.0 L Vancomycin Trough Crossmatch 01/07/22 01/07/22 01/07/22 05:20 11:30 17:00 WBC RBC Hgb Hct MCV MCH MCHC RDW Plt Count Seg Neuts % (Manual) Lymphocytes % (Manual) Seg Neutrophils # Man Lymphocytes # (Manual) Monocytes # (Manual) PT INR D-Dimer ABG pH ABG pO2 ABG HCO3 ABG O2 Saturation ABG Base Excess ABG Hemoglobin Oxyhemoglobin Sodium Potassium Chloride Carbon Dioxide BUN Creatinine Glucose POC Glucose 111 H 113 H 121 H Lactic Acid Calcium Phosphorus Magnesium AST ALT Alkaline Phosphatase Lactate Dehydrogenase Troponin T C-Reactive Protein NT-Pro-B Natriuret Pep Total Protein Albumin LDL Cholesterol Direct Vitamin B12 Fluid Glucose Fluid Total Protein Vancomycin Trough Crossmatch 01/07/22 01/08/22 01/08/22 23:41 11:26 16:23 WBC RBC Hgb Hct MCV MCH MCHC RDW Plt Count Seg Neuts % (Manual) Lymphocytes % (Manual) Seg Neutrophils # Man Lymphocytes # (Manual) Monocytes # (Manual) PT INR D-Dimer ABG pH ABG pO2 ABG HCO3 ABG O2 Saturation ABG Base Excess ABG Hemoglobin Oxyhemoglobin Sodium Potassium Chloride Carbon Dioxide BUN Creatinine Glucose POC Glucose 110 H 129 H 118 H Lactic Acid Calcium Phosphorus Magnesium AST ALT Alkaline Phosphatase Lactate Dehydrogenase Troponin T C-Reactive Protein NT-Pro-B Natriuret Pep Total Protein Albumin LDL Cholesterol Direct Vitamin B12 Fluid Glucose Fluid Total Protein Vancomycin Trough Crossmatch 01/09/22 01/10/22 01/10/22 18:13 00:27 04:00 WBC RBC Hgb Hct MCV MCH MCHC RDW Plt Count Seg Neuts % (Manual) Lymphocytes % (Manual) Seg Neutrophils # Man Lymphocytes # (Manual) Monocytes # (Manual) PT INR D-Dimer ABG pH ABG pO2 ABG HCO3 ABG O2 Saturation ABG Base Excess ABG Hemoglobin Oxyhemoglobin Sodium 133 L Potassium Chloride 92.6 L Carbon Dioxide 31 H BUN 29 H Creatinine 0.5 L Glucose 115 H POC Glucose 118 H 111 H Lactic Acid Calcium Phosphorus Magnesium AST ALT Alkaline Phosphatase Lactate Dehydrogenase Troponin T C-Reactive Protein NT-Pro-B Natriuret Pep Total Protein Albumin LDL Cholesterol Direct Vitamin B12 Fluid Glucose Fluid Total Protein Vancomycin Trough Crossmatch 01/10/22 01/11/22 01/11/22 05:47 05:10 11:14 WBC RBC Hgb Hct MCV MCH MCHC RDW Plt Count Seg Neuts % (Manual) Lymphocytes % (Manual) Seg Neutrophils # Man Lymphocytes # (Manual) Monocytes # (Manual) PT INR D-Dimer ABG pH ABG pO2 ABG HCO3 ABG O2 Saturation ABG Base Excess ABG Hemoglobin Oxyhemoglobin Sodium Potassium Chloride Carbon Dioxide BUN Creatinine Glucose POC Glucose 106 H 118 H 136 H Lactic Acid Calcium Phosphorus Magnesium AST ALT Alkaline Phosphatase Lactate Dehydrogenase Troponin T C-Reactive Protein NT-Pro-B Natriuret Pep Total Protein Albumin LDL Cholesterol Direct Vitamin B12 Fluid Glucose Fluid Total Protein Vancomycin Trough Crossmatch 01/11/22 01/11/22 01/12/22 17:14 23:52 05:39 WBC RBC Hgb Hct MCV MCH MCHC RDW Plt Count Seg Neuts % (Manual) Lymphocytes % (Manual) Seg Neutrophils # Man Lymphocytes # (Manual) Monocytes # (Manual) PT INR D-Dimer ABG pH ABG pO2 ABG HCO3 ABG O2 Saturation ABG Base Excess ABG Hemoglobin Oxyhemoglobin Sodium Potassium Chloride Carbon Dioxide BUN Creatinine Glucose POC Glucose 117 H 110 H 110 H Lactic Acid Calcium Phosphorus Magnesium AST ALT Alkaline Phosphatase Lactate Dehydrogenase Troponin T C-Reactive Protein NT-Pro-B Natriuret Pep Total Protein Albumin LDL Cholesterol Direct Vitamin B12 Fluid Glucose Fluid Total Protein Vancomycin Trough Crossmatch 01/13/22 01/13/22 01/14/22 11:15 17:21 05:33 WBC RBC Hgb Hct MCV MCH MCHC RDW Plt Count Seg Neuts % (Manual) Lymphocytes % (Manual) Seg Neutrophils # Man Lymphocytes # (Manual) Monocytes # (Manual) PT INR D-Dimer ABG pH ABG pO2 ABG HCO3 ABG O2 Saturation ABG Base Excess ABG Hemoglobin Oxyhemoglobin Sodium Potassium Chloride Carbon Dioxide BUN Creatinine Glucose POC Glucose 113 H 121 H 136 H Lactic Acid Calcium Phosphorus Magnesium AST ALT Alkaline Phosphatase Lactate Dehydrogenase Troponin T C-Reactive Protein NT-Pro-B Natriuret Pep Total Protein Albumin LDL Cholesterol Direct Vitamin B12 Fluid Glucose Fluid Total Protein Vancomycin Trough Crossmatch 01/14/22 01/15/22 01/15/22 11:28 00:13 05:24 WBC RBC Hgb Hct MCV MCH MCHC RDW Plt Count Seg Neuts % (Manual) Lymphocytes % (Manual) Seg Neutrophils # Man Lymphocytes # (Manual) Monocytes # (Manual) PT INR D-Dimer ABG pH ABG pO2 ABG HCO3 ABG O2 Saturation ABG Base Excess ABG Hemoglobin Oxyhemoglobin Sodium Potassium Chloride Carbon Dioxide BUN Creatinine Glucose POC Glucose 117 H 109 H 117 H Lactic Acid Calcium Phosphorus Magnesium AST ALT Alkaline Phosphatase Lactate Dehydrogenase Troponin T C-Reactive Protein NT-Pro-B Natriuret Pep Total Protein Albumin LDL Cholesterol Direct Vitamin B12 Fluid Glucose Fluid Total Protein Vancomycin Trough Crossmatch 01/15/22 01/15/22 01/15/22 11:38 14:36 17:05 WBC RBC 3.11 L Hgb 8.4 L Hct 25.7 L MCV MCH 27 L MCHC RDW 17.2 H Plt Count Seg Neuts % (Manual) 82.0 H Lymphocytes % (Manual) 11.0 L Seg Neutrophils # Man 8.8 H Lymphocytes # (Manual) Monocytes # (Manual) PT INR D-Dimer ABG pH ABG pO2 ABG HCO3 ABG O2 Saturation ABG Base Excess ABG Hemoglobin Oxyhemoglobin Sodium Potassium Chloride Carbon Dioxide BUN Creatinine Glucose POC Glucose 107 H 108 H Lactic Acid Calcium Phosphorus Magnesium AST ALT Alkaline Phosphatase Lactate Dehydrogenase Troponin T C-Reactive Protein NT-Pro-B Natriuret Pep Total Protein Albumin LDL Cholesterol Direct Vitamin B12 Fluid Glucose Fluid Total Protein Vancomycin Trough Crossmatch 01/15/22 01/15/22 01/15/22 21:07 Unknown Unknown WBC RBC 2.97 L Hgb 8.0 L Hct 24.3 L MCV MCH 27 L MCHC RDW 17.2 H Plt Count Seg Neuts % (Manual) Lymphocytes % (Manual) Seg Neutrophils # Man Lymphocytes # (Manual) Monocytes # (Manual) PT INR D-Dimer ABG pH ABG pO2 ABG HCO3 ABG O2 Saturation ABG Base Excess ABG Hemoglobin Oxyhemoglobin Sodium 131 L Potassium Chloride 93.1 L Carbon Dioxide BUN 27 H Creatinine Glucose 110 H POC Glucose Lactic Acid Calcium 8.3 L Phosphorus Magnesium AST ALT Alkaline Phosphatase Lactate Dehydrogenase Troponin T 0.088 H C-Reactive Protein NT-Pro-B Natriuret Pep Total Protein Albumin LDL Cholesterol Direct 44 L Vitamin B12 Fluid Glucose Fluid Total Protein Vancomycin Trough Crossmatch 01/15/22 01/16/22 01/16/22 Unknown 05:21 12:59 WBC RBC Hgb Hct MCV MCH MCHC RDW Plt Count Seg Neuts % (Manual) Lymphocytes % (Manual) Seg Neutrophils # Man Lymphocytes # (Manual) Monocytes # (Manual) PT INR D-Dimer ABG pH ABG pO2 ABG HCO3 ABG O2 Saturation ABG Base Excess ABG Hemoglobin Oxyhemoglobin Sodium 134 L 134 L Potassium 3.4 L Chloride 93.9 L 95.4 L Carbon Dioxide BUN 26 H 24 H Creatinine Glucose 168 H POC Glucose 159 H Lactic Acid Calcium 8.1 L Phosphorus Magnesium AST ALT Alkaline Phosphatase Lactate Dehydrogenase Troponin T 0.078 H C-Reactive Protein NT-Pro-B Natriuret Pep Total Protein Albumin LDL Cholesterol Direct Vitamin B12 Fluid Glucose Fluid Total Protein Vancomycin Trough Crossmatch Chest x-ray: report reviewed, image reviewed CT scan - chest: report reviewed, image reviewed Additional Studies: CHEST 1 VIEW 01/16/2022 4:31 PM INDICATION / CLINICAL INFORMATION: s/p right chest tube placement. COMPARISON: 01/06/2022 FINDINGS: SUPPORT DEVICES: Stable, satisfactory device positioning. HEART / MEDIASTINUM: Cardiomegaly LUNGS / PLEURA: Diffuse bilateral pulmonary opacities and effusions No pneumothorax. ADDITIONAL FINDINGS: No significant additional findings. IMPRESSION: 1. Diffuse bilateral pulmonary opacities and effusions. Right PICC line tip overlies distal SVC. Small right chest tube is noted without large pneumothorax CTA CHEST WITH CONTRAST 01/16/22 INDICATION : OMNI 350 100 ML PE rule out. TECHNIQUE: Axial imaging performed through the chest, with contrast bolus timing set to maximize opacification of the pulmonary arteries. Sagittal and coronal reformatted images. 3-plane MIP reformatted images were obtained. All CT scans at this location are performed using CT dose reduction for ALARA by means of automated exposure control. Omnipaque 350 100 mL of intravenous contrast administered. COMPARISON: 03/04/2012 FINDINGS: Bolus: Contrast bolus timing is adequate. PTE: No filling defect is present to suggest PTE. Mediastinum: There is mild cardiomegaly. Severe coronary artery calcificati ons. No pericardial effusion. There are moderate atherosclerotic changes throughout the thoracic ao rta without acute abnormality. Tracheostomy appears in good position. No pathologic mediastinal adenopathy. Lungs: Large bilateral pleural effusions are present, right greater than left, which completely compressed both lower lobes. The middle lobe and upper lobes are adequately aerated with no acute abnormality or mass. Bones: Osteopenia. There is accentuated thoracic kyphosis with 2 wedge compression deformities in the lower thoracic spine at approximate levels T10 and T11. The chronicity of these are unclear but this appears chronic. There is moderate multilevel thoracic spondylosis. No definite acute fracture. Upper abdomen: Limited imaging of the upper abdomen shows nothing acute. Small ascites is noted. IMPRESSION: No evidence for pulmonary embolus. Mild cardiomegaly. Large bilateral pleural effusions with compression of both lower lobes. Allied health notes reviewed: RT
[2022-01-16] MEDS: traZODone 50 MG TAB PO SCH (21:02)
[2022-01-16] MEDS: MELATONIN 5 MG TAB PO SCH (21:02)
[2022-01-16] MEDS: PRAVASTATIN 20 MG TAB FEEDTUBE SCH (21:03)
[2022-01-17] MEDS: LEVOTHYROXINE 125 MCG TAB FEEDTUBE SCH (05:27)
[2022-01-17] MEDS: SUCRALFATE 1 GM/10 ML ORAL LIQD FEEDTUBE SCH ×3 (05:27→17:11)
[2022-01-17] MEDS: HYDROcodone/ACETAMINOPHEN 10-325MG TAB FEEDTUBE SCH ×3 (09:40→20:04)
[2022-01-17] MEDS: MIDODRINE 5 MG TAB FEEDTUBE SCH ×3 (09:43→15:18)
[2022-01-17] MEDS: SPIRONOLACTONE 25 MG TAB FEEDTUBE SCH (09:43)
[2022-01-17] MEDS: busPIRone 5 MG TAB FEEDTUBE SCH ×2 (09:44→21:12)
[2022-01-17] MEDS: GABAPENTIN 100 MG CAP FEEDTUBE SCH (09:45)
[2022-01-17] MEDS: FUROSEMIDE 20 MG TAB PO SCH (09:46)
[2022-01-17] MEDS: DOCUSATE SODIUM 100 MG/10 ML ORAL LIQD FEEDTUBE SCH ×2 (09:46→21:12)
[2022-01-17] MEDS: METOPROLOL TARTRATE 25 MG TAB FEEDTUBE SCH ×2 (09:46→21:13)
[2022-01-17] MEDS: POLYETHYLENE GLYCOL 3350 17 GM POWDER FEEDTUBE SCH (09:47)
[2022-01-17] MEDS: LANSOPRAZOLE 30 MG SOLUTAB FEEDTUBE SCH ×2 (09:47→21:13)
[2022-01-17] MEDS: SENNOSIDES ORAL LIQD 8.8 MG/5 ML ORAL LIQD FEEDTUBE SCH ×2 (09:48→21:13)
[2022-01-17] MEDS: QUEtiapine 25 MG TAB FEEDTUBE SCH ×2 (09:48→21:14)
[2022-01-17] MEDS: ALPRAZolam 0.25 MG TAB FEEDTUBE PRN (11:26)
[2022-01-17] MEDS: ACETAMINOPHEN 325 MG/10.15 ML ORAL LIQD UNIT DOSE FEEDTUBE PRN (11:27)
--- NOTE | 2022-01-17 12:27 | Progress Note ---
Assessment and Plan Gram positive Bacteremia (MRSA) Acute respiratory failure with hypoxia, now on MVS Acute microcytic anemia Bilateral pneumonia DVT Left pleural effusion Cardiomyopathy EF 30-35% Moderate pulmonary HTN - back on PSV - rest on full MVS overnight for now - follow ABG result - keep chest tube to continuous suction in short term - no new issues otherwise, continue care as below; - continue thyroid replacement therapy with Levoxyl - continue Lasix 20 mg p.o. daily - follow I's & O's and monitor electrolytes - continue daily SAT and SBT assessment as tolerated - continue Seroquel - continue Vancomycin for MRSA bacteremia (6 weeks of therapy recommended) - prn Levophed for target MAP > 65 mmHg - continue to wean supplemental oxygen for target O2 sat's > 90% acutely - VAP bundle addressed - continue lung protective strategies - continue bronchodilators with routine trach care and pulmonary hygiene per RT - wean per pulmonary driven protocols otherwise - avoid nephrotoxins, renally dose all medications - continue accuchecks with glycemic control per SSI (While critically ill target blood glucose of 140-180 mg/dL; avoid hypoglycemia) - sedation prn for target RASS 0 to -1 - antibiotics per ID recommendations - continue to avoid benzodiazepine's, reduce the possibility of delirium - prn analgesia per CPOT score - Maintenance of sleep-wake cycle, avoid delirium - continue enteral nutritional support at goal rate as tolerated - G.I. & VTE prophylaxis - PT/OT/ROM exercises - continue mobility protocols for pressure ulcer prophylaxis - Monitor hemodynamics closely - continue other care per attending / other consultants - discharge planning ongoing concurrently COVID SPECIFIC INTERVENTIONS - COVID-19 PCR negative .... Re-evaluate in am & prn CONDITION: CRITICAL PROGNOSIS: GUARDED CODE STATUS: FULL CODE The high probability of a clinically significant, sudden or life-threatening deterioration of the [respiratory, cardiovascular & neurologic] system(s) required my full and direct attention, intervention and personal management. The aggregate critical care time was [35] minutes without overlap. Time includes spent on; [x] Data Review and interpretation [x] Patient assessment and monitoring of vital signs [x] Documentation [x] Medication orders and management Subjective Date of service: 01/17/22 Principal diagnosis: Septic shock; AHRF; Anemia; Pneumonia; pleural effusion; HFrEF; Pulm HTN Interval history: Patient is seen today for: Septic shock; Acute hypoxemic respiratory failure; Anemia; Bilateral pneumonia; Left pleural effusion; HFrEF 30-35%; Pulm HTN RVSP 49 Seen and examined at bedside; 24hour events reviewed; nursing and respiratory care staff consulted; no adverse overnight events reported to me; resting in bed; tolerated t-piece trial for about just over 1 hour today with encouragement but tired out; ABG ordered to assess ventilation parameters and result pending; chest tube remains in place and pulling larger volumes overall Objective Vital Signs - 12hr 01/17/22 01/17/22 01/17/22 01:00 02:00 03:00 Temperature Pulse Rate 60 60 62 Pulse Rate [ From Monitor] Respiratory 16 14 14 Rate Blood Pressure 113/53 99/49 91/41 O2 Sat by Pulse 100 100 100 Oximetry O2 Sat by Pulse Oximetry [ Assessment] 01/17/22 01/17/22 01/17/22 03:56 04:00 04:34 Temperature 97.6 F Pulse Rate 61 60 Pulse Rate [ From Monitor] Respiratory 14 Rate Blood Pressure 96/48 95/42 O2 Sat by Pulse 100 100 Oximetry O2 Sat by Pulse Oximetry [ Assessment] 01/17/22 01/17/22 01/17/22 05:00 06:00 06:16 Temperature Pulse Rate 60 60 60 Pulse Rate [ From Monitor] Respiratory 14 14 13 Rate Blood Pressure 94/43 129/51 129/51 O2 Sat by Pulse 100 100 100 Oximetry O2 Sat by Pulse Oximetry [ Assessment] 01/17/22 01/17/22 01/17/22 06:30 06:46 07:00 Temperature 97.5 F L Pulse Rate 60 60 60 Pulse Rate [ From Monitor] Respiratory 14 14 14 Rate Blood Pressure 126/48 126/48 126/48 O2 Sat by Pulse 100 100 100 Oximetry O2 Sat by Pulse Oximetry [ Assessment] 01/17/22 01/17/22 01/17/22 07:16 07:30 07:46 Temperature Pulse Rate 65 66 60 Pulse Rate [ From Monitor] Respiratory 16 15 14 Rate Blood Pressure 126/48 127/59 127/59 O2 Sat by Pulse 100 100 100 Oximetry O2 Sat by Pulse Oximetry [ Assessment] 01/17/22 01/17/22 01/17/22 08:00 08:09 08:10 Temperature Pulse Rate 60 61 Pulse Rate [ 60 From Monitor] Respiratory 14 Rate Blood Pressure 127/59 105/52 O2 Sat by Pulse 100 100 Oximetry O2 Sat by Pulse 99 Oximetry [ Assessment] 01/17/22 01/17/22 01/17/22 08:16 08:30 08:46 Temperature Pulse Rate 60 60 60 Pulse Rate [ From Monitor] Respiratory 14 14 14 Rate Blood Pressure 105/52 107/54 107/54 O2 Sat by Pulse 100 100 100 Oximetry O2 Sat by Pulse Oximetry [ Assessment] 01/17/22 01/17/22 01/17/22 09:00 09:16 09:30 Temperature Pulse Rate 60 60 62 Pulse Rate [ From Monitor] Respiratory 14 14 14 Rate Blood Pressure 118/59 118/59 123/57 O2 Sat by Pulse 100 100 100 Oximetry O2 Sat by Pulse Oximetry [ Assessment] 01/17/22 01/17/22 01/17/22 09:43 09:46 10:00 Temperature Pulse Rate 60 60 66 Pulse Rate [ From Monitor] Respiratory 14 13 Rate Blood Pressure 123/57 123/57 122/62 O2 Sat by Pulse 100 100 Oximetry O2 Sat by Pulse Oximetry [ Assessment] 01/17/22 01/17/22 01/17/22 10:16 10:30 10:46 Temperature Pulse Rate 63 60 60 Pulse Rate [ From Monitor] Respiratory 14 14 14 Rate Blood Pressure 122/62 104/47 104/47 O2 Sat by Pulse 100 100 100 Oximetry O2 Sat by Pulse Oximetry [ Assessment] 01/17/22 01/17/22 01/17/22 11:00 11:16 11:30 Temperature Pulse Rate 60 66 64 Pulse Rate [ From Monitor] Respiratory 14 12 14 Rate Blood Pressure 101/46 101/46 101/46 O2 Sat by Pulse 100 100 100 Oximetry O2 Sat by Pulse Oximetry [ Assessment] 01/17/22 01/17/22 01/17/22 11:33 11:46 12:00 Temperature 97.5 F L Pulse Rate 60 60 Pulse Rate [ 61 From Monitor] Respiratory 15 14 Rate Blood Pressure 109/53 105/50 O2 Sat by Pulse 100 95 Oximetry O2 Sat by Pulse Oximetry [ Assessment] Constitutional: alert, appears uncomfortable, other (trach to MVS, frail elderly woman with mildly increased respiratory effort at rest) Eyes: non-icteric ENT: oropharynx moist, other (+ Midline tracheostomy with minimal secretions) Neck: supple, no lymphadenopathy, no JVD Effort: mildly labored Ascultation: Bilateral: diminished breath sounds, rhonchi, other (Right chest tube) Percussion: Right: not dull, Left: dull (bases) Cardiovascular: regular rate and rhythm, other (S1,S2) Gastrointestinal: normoactive bowel sounds, soft, non-tender, non-distended (protuberant) Integumentary: normal Extremities: no cyanosis, pink and warm, pulses normal, edema (upper etremities), anasarca Neurologic: non-focal exam (grossly), pupils equal and round, motor strength normal and Psychiatric: mood appropriate, anxious CBC and BMP: 01/15/22 Unknown 01/16/22 05:21 ABG, PT/INR, D-dimer: ABG ABG pH 7.479 pH Units (7.350-7.450) H 12/16/21 20:52 ABG pCO2 37.5 mm Hg 12/16/21 20:52 ABG pO2 79.3 mm Hg (80.0-90.0) L 12/16/21 20:52 ABG O2 Saturation 97.0 % (95.0-99.0) 12/16/21 20:52 PT/INR, D-dimer PT 16.9 Sec. (12.2-14.9) H 01/06/22 04:06 INR 1.23 (0.87-1.13) H 01/06/22 04:06 D-Dimer 2655.00 ng/mlDDU (0-234) H 11/11/21 04:28 Abnormal lab findings: Abnormal Labs 11/03/21 11/03/21 11/03/21 22:32 22:32 22:32 WBC 29.3 H RBC 2.93 L Hgb 6.1 L Hct 21.9 L MCV 75 L MCH 21 L MCHC 28 L RDW 19.7 H Plt Count Seg Neuts % (Manual) 97.0 H Lymphocytes % (Manual) 3.0 L Seg Neutrophils # Man 28.4 H Lymphocytes # (Manual) 0.9 L Monocytes # (Manual) PT 18.6 H INR 1.40 H D-Dimer ABG pH ABG pO2 ABG HCO3 ABG O2 Saturation ABG Base Excess ABG Hemoglobin Oxyhemoglobin Sodium Potassium Chloride Carbon Dioxide 20 L BUN 33 H Creatinine Glucose 119 H POC Glucose Lactic Acid Calcium 8.3 L Phosphorus Magnesium AST ALT Alkaline Phosphatase Lactate Dehydrogenase Troponin T 0.035 H C-Reactive Protein NT-Pro-B Natriuret Pep Total Protein Albumin LDL Cholesterol Direct 34 L Vitamin B12 Fluid Glucose Fluid Total Protein Vancomycin Trough Crossmatch 11/03/21 11/03/21 11/03/21 22:32 22:32 23:57 WBC RBC Hgb Hct MCV MCH MCHC RDW Plt Count Seg Neuts % (Manual) Lymphocytes % (Manual) Seg Neutrophils # Man Lymphocytes # (Manual) Monocytes # (Manual) PT INR D-Dimer ABG pH ABG pO2 ABG HCO3 ABG O2 Saturation ABG Base Excess ABG Hemoglobin Oxyhemoglobin Sodium Potassium Chloride Carbon Dioxide BUN Creatinine Glucose POC Glucose Lactic Acid 3.70 H* Calcium Phosphorus Magnesium AST ALT Alkaline Phosphatase 139 H Lactate Dehydrogenase Troponin T C-Reactive Protein NT-Pro-B Natriuret Pep 7895 H Total Protein Albumin 3.5 L LDL Cholesterol Direct Vitamin B12 Fluid Glucose Fluid Total Protein Vancomycin Trough Crossmatch See Detail 11/04/21 11/04/21 11/05/21 00:59 13:58 00:51 WBC 27.9 H RBC 3.28 L Hgb 7.3 L Hct 25.5 L MCV 78 L MCH 22 L MCHC 29 L RDW 19.1 H Plt Count Seg Neuts % (Manual) 96.0 H Lymphocytes % (Manual) 2.0 L Seg Neutrophils # Man 26.8 H Lymphocytes # (Manual) 0.6 L Monocytes # (Manual) PT INR D-Dimer ABG pH ABG pO2 ABG HCO3 ABG O2 Saturation ABG Base Excess ABG Hemoglobin Oxyhemoglobin Sodium Potassium Chloride Carbon Dioxide BUN Creatinine Glucose POC Glucose Lactic Acid Calcium Phosphorus Magnesium AST ALT Alkaline Phosphatase Lactate Dehydrogenase Troponin T 0.051 H D 0.032 H D C-Reactive Protein NT-Pro-B Natriuret Pep Total Protein Albumin LDL Cholesterol Direct Vitamin B12 Fluid Glucose Fluid Total Protein Vancomycin Trough Crossmatch 11/05/21 11/05/21 11/05/21 06:11 06:11 06:11 WBC 31.8 H RBC 3.57 L Hgb 8.0 L Hct 27.7 L MCV 78 L MCH 22 L MCHC 29 L RDW 19.2 H Plt Count Seg Neuts % (Manual) 91.0 H Lymphocytes % (Manual) 4.5 L Seg Neutrophils # Man 28.9 H Lymphocytes # (Manual) Monocytes # (Manual) 1.1 H PT INR D-Dimer 1494.53 H ABG pH ABG pO2 ABG HCO3 ABG O2 Saturation ABG Base Excess ABG Hemoglobin Oxyhemoglobin Sodium Potassium Chloride Carbon Dioxide 19 L BUN 42 H Creatinine Glucose 115 H POC Glucose Lactic Acid Calcium Phosphorus Magnesium AST 43 H ALT Alkaline Phosphatase Lactate Dehydrogenase 187 H Troponin T C-Reactive Protein 22.20 H NT-Pro-B Natriuret Pep Total Protein 6.0 L Albumin 3.2 L LDL Cholesterol Direct Vitamin B12 Fluid Glucose Fluid Total Protein Vancomycin Trough Crossmatch 11/05/21 11/05/21 11/06/21 06:11 12:15 00:30 WBC RBC Hgb Hct MCV MCH MCHC RDW Plt Count Seg Neuts % (Manual) Lymphocytes % (Manual) Seg Neutrophils # Man Lymphocytes # (Manual) Monocytes # (Manual) PT INR D-Dimer ABG pH ABG pO2 ABG HCO3 ABG O2 Saturation ABG Base Excess ABG Hemoglobin Oxyhemoglobin Sodium Potassium Chloride Carbon Dioxide BUN Creatinine Glucose POC Glucose 113 H 69 L Lactic Acid Calcium Phosphorus Magnesium AST ALT Alkaline Phosphatase Lactate Dehydrogenase Troponin T 0.033 H C-Reactive Protein NT-Pro-B Natriuret Pep Total Protein Albumin LDL Cholesterol Direct Vitamin B12 Fluid Glucose Fluid Total Protein Vancomycin Trough Crossmatch 11/06/21 11/06/21 11/06/21 05:50 15:50 15:50 WBC 25.5 H RBC 3.62 L Hgb 8.0 L Hct 27.5 L MCV 76 L MCH 22 L MCHC 29 L RDW 19.6 H Plt Count Seg Neuts % (Manual) 92.0 H Lymphocytes % (Manual) 5.0 L Seg Neutrophils # Man 23.5 H Lymphocytes # (Manual) Monocytes # (Manual) PT INR D-Dimer ABG pH 7.305 L ABG pO2 ABG HCO3 15.8 L ABG O2 Saturation ABG Base Excess -9.6 L ABG Hemoglobin 8.6 L Oxyhemoglobin 94.6 L Sodium Potassium Chloride 113.9 H Carbon Dioxide 17 L BUN 56 H Creatinine Glucose 114 H POC Glucose Lactic Acid Calcium 7.9 L Phosphorus Magnesium AST 1410 H ALT 934 H Alkaline Phosphatase 142 H Lactate Dehydrogenase Troponin T C-Reactive Protein NT-Pro-B Natriuret Pep Total Protein 5.0 L Albumin 2.6 L LDL Cholesterol Direct Vitamin B12 Fluid Glucose Fluid Total Protein Vancomycin Trough Crossmatch 11/07/21 11/07/21 11/07/21 03:30 04:50 08:07 WBC RBC Hgb Hct MCV MCH MCHC RDW Plt Count Seg Neuts % (Manual) Lymphocytes % (Manual) Seg Neutrophils # Man Lymphocytes # (Manual) Monocytes # (Manual) PT INR D-Dimer ABG pH ABG pO2 296.9 H ABG HCO3 18.1 L ABG O2 Saturation 99.5 H ABG Base Excess -5.9 L ABG Hemoglobin 7.6 L Oxyhemoglobin Sodium Potassium Chloride Carbon Dioxide BUN Creatinine Glucose POC Glucose 106 H 108 H Lactic Acid Calcium Phosphorus Magnesium AST ALT Alkaline Phosphatase Lactate Dehydrogenase Troponin T C-Reactive Protein NT-Pro-B Natriuret Pep Total Protein Albumin LDL Cholesterol Direct Vitamin B12 Fluid Glucose Fluid Total Protein Vancomycin Trough Crossmatch 11/08/21 11/08/21 11/08/21 03:10 18:05 23:43 WBC RBC Hgb Hct MCV MCH MCHC RDW Plt Count Seg Neuts % (Manual) Lymphocytes % (Manual) Seg Neutrophils # Man Lymphocytes # (Manual) Monocytes # (Manual) PT INR D-Dimer ABG pH ABG pO2 127.4 H ABG HCO3 ABG O2 Saturation ABG Base Excess -3.4 L ABG Hemoglobin 7.4 L Oxyhemoglobin Sodium Potassium Chloride Carbon Dioxide BUN Creatinine Glucose POC Glucose 113 H 141 H Lactic Acid Calcium Phosphorus Magnesium AST ALT Alkaline Phosphatase Lactate Dehydrogenase Troponin T C-Reactive Protein NT-Pro-B Natriuret Pep Total Protein Albumin LDL Cholesterol Direct Vitamin B12 Fluid Glucose Fluid Total Protein Vancomycin Trough Crossmatch 11/08/21 11/08/21 11/09/21 Unknown Unknown 02:00 WBC 14.5 H RBC 3.35 L Hgb 7.5 L 8.1 L Hct 25.4 L 27.6 L MCV 76 L 76 L MCH 23 L 22 L MCHC RDW 19.9 H 19.9 H Plt Count Seg Neuts % (Manual) Lymphocytes % (Manual) Seg Neutrophils # Man Lymphocytes # (Manual) Monocytes # (Manual) PT INR D-Dimer ABG pH ABG pO2 ABG HCO3 ABG O2 Saturation ABG Base Excess ABG Hemoglobin Oxyhemoglobin Sodium 154 H D Potassium 3.3 L Chloride 120.7 H Carbon Dioxide 20 L BUN 38 H Creatinine Glucose POC Glucose Lactic Acid Calcium 8.3 L Phosphorus Magnesium AST ALT Alkaline Phosphatase Lactate Dehydrogenase Troponin T C-Reactive Protein NT-Pro-B Natriuret Pep Total Protein Albumin LDL Cholesterol Direct Vitamin B12 Fluid Glucose Fluid Total Protein Vancomycin Trough Crossmatch 11/09/21 11/09/21 11/09/21 02:00 02:31 05:12 WBC RBC Hgb Hct MCV MCH MCHC RDW Plt Count Seg Neuts % (Manual) Lymphocytes % (Manual) Seg Neutrophils # Man Lymphocytes # (Manual) Monocytes # (Manual) PT INR D-Dimer ABG pH 7.479 H ABG pO2 121.3 H ABG HCO3 ABG O2 Saturation ABG Base Excess ABG Hemoglobin 7.3 L Oxyhemoglobin Sodium Potassium Chloride 112.5 H Carbon Dioxide BUN 33 H Creatinine Glucose 161 H POC Glucose 135 H Lactic Acid Calcium Phosphorus Magnesium AST 251 H ALT 481 H Alkaline Phosphatase Lactate Dehydrogenase Troponin T C-Reactive Protein NT-Pro-B Natriuret Pep Total Protein 5.0 L Albumin 2.8 L LDL Cholesterol Direct Vitamin B12 Fluid Glucose Fluid Total Protein Vancomycin Trough Crossmatch 11/09/21 11/09/21 11/09/21 11:33 16:32 23:28 WBC RBC Hgb Hct MCV MCH MCHC RDW Plt Count Seg Neuts % (Manual) Lymphocytes % (Manual) Seg Neutrophils # Man Lymphocytes # (Manual) Monocytes # (Manual) PT INR D-Dimer ABG pH ABG pO2 ABG HCO3 ABG O2 Saturation ABG Base Excess ABG Hemoglobin Oxyhemoglobin Sodium Potassium Chloride Carbon Dioxide BUN Creatinine Glucose POC Glucose 132 H 133 H 143 H Lactic Acid Calcium Phosphorus Magnesium AST ALT Alkaline Phosphatase Lactate Dehydrogenase Troponin T C-Reactive Protein NT-Pro-B Natriuret Pep Total Protein Albumin LDL Cholesterol Direct Vitamin B12 Fluid Glucose Fluid Total Protein Vancomycin Trough Crossmatch 11/10/21 11/10/21 11/10/21 04:00 04:00 05:35 WBC 16.0 H RBC 3.61 L Hgb 8.0 L Hct 27.1 L MCV 75 L MCH 22 L MCHC RDW 20.4 H Plt Count Seg Neuts % (Manual) Lymphocytes % (Manual) Seg Neutrophils # Man Lymphocytes # (Manual) Monocytes # (Manual) PT INR D-Dimer ABG pH ABG pO2 ABG HCO3 ABG O2 Saturation ABG Base Excess ABG Hemoglobin Oxyhemoglobin Sodium 149 H Potassium Chloride 114.1 H Carbon Dioxide BUN 31 H Creatinine Glucose 148 H POC Glucose 132 H Lactic Acid Calcium 8.2 L Phosphorus Magnesium AST ALT Alkaline Phosphatase Lactate Dehydrogenase Troponin T C-Reactive Protein NT-Pro-B Natriuret Pep Total Protein Albumin LDL Cholesterol Direct Vitamin B12 Fluid Glucose Fluid Total Protein Vancomycin Trough Crossmatch 11/10/21 11/10/21 11/10/21 11:31 14:08 15:35 WBC RBC Hgb Hct MCV MCH MCHC RDW Plt Count Seg Neuts % (Manual) Lymphocytes % (Manual) Seg Neutrophils # Man Lymphocytes # (Manual) Monocytes # (Manual) PT INR D-Dimer ABG pH ABG pO2 126.6 H ABG HCO3 ABG O2 Saturation ABG Base Excess ABG Hemoglobin 7.4 L Oxyhemoglobin Sodium Potassium Chloride Carbon Dioxide BUN Creatinine Glucose POC Glucose 147 H Lactic Acid Calcium Phosphorus Magnesium AST ALT Alkaline Phosphatase Lactate Dehydrogenase Troponin T C-Reactive Protein NT-Pro-B Natriuret Pep Total Protein Albumin LDL Cholesterol Direct Vitamin B12 1823 H Fluid Glucose Fluid Total Protein Vancomycin Trough Crossmatch 11/10/21 11/11/21 11/11/21 17:53 00:55 04:28 WBC RBC Hgb Hct MCV MCH MCHC RDW Plt Count Seg Neuts % (Manual) Lymphocytes % (Manual) Seg Neutrophils # Man Lymphocytes # (Manual) Monocytes # (Manual) PT INR D-Dimer ABG pH ABG pO2 ABG HCO3 ABG O2 Saturation ABG Base Excess ABG Hemoglobin Oxyhemoglobin Sodium 149 H Potassium Chloride 112.2 H Carbon Dioxide BUN 34 H Creatinine Glucose 148 H POC Glucose 140 H 145 H Lactic Acid Calcium 7.9 L Phosphorus Magnesium AST 53 H ALT 203 H Alkaline Phosphatase Lactate Dehydrogenase Troponin T C-Reactive Protein NT-Pro-B Natriuret Pep Total Protein 4.9 L Albumin 2.6 L LDL Cholesterol Direct Vitamin B12 Fluid Glucose Fluid Total Protein Vancomycin Trough Crossmatch 11/11/21 11/11/21 11/11/21 04:28 04:28 05:28 WBC 20.9 H RBC 3.47 L Hgb 7.5 L Hct 26.0 L MCV 75 L MCH 22 L MCHC 29 L RDW 21.6 H Plt Count 132 L Seg Neuts % (Manual) Lymphocytes % (Manual) Seg Neutrophils # Man Lymphocytes # (Manual) Monocytes # (Manual) PT INR D-Dimer 2655.00 H ABG pH ABG pO2 ABG HCO3 ABG O2 Saturation ABG Base Excess ABG Hemoglobin Oxyhemoglobin Sodium Potassium Chloride Carbon Dioxide BUN Creatinine Glucose POC Glucose 154 H Lactic Acid Calcium Phosphorus Magnesium AST ALT Alkaline Phosphatase Lactate Dehydrogenase Troponin T C-Reactive Protein NT-Pro-B Natriuret Pep Total Protein Albumin LDL Cholesterol Direct Vitamin B12 Fluid Glucose Fluid Total Protein Vancomycin Trough Crossmatch 11/11/21 11/11/21 11/12/21 12:38 18:13 00:14 WBC RBC Hgb Hct MCV MCH MCHC RDW Plt Count Seg Neuts % (Manual) Lymphocytes % (Manual) Seg Neutrophils # Man Lymphocytes # (Manual) Monocytes # (Manual) PT INR D-Dimer ABG pH ABG pO2 ABG HCO3 ABG O2 Saturation ABG Base Excess ABG Hemoglobin Oxyhemoglobin Sodium Potassium Chloride Carbon Dioxide BUN Creatinine Glucose POC Glucose 137 H 108 H 137 H Lactic Acid Calcium Phosphorus Magnesium AST ALT Alkaline Phosphatase Lactate Dehydrogenase Troponin T C-Reactive Protein NT-Pro-B Natriuret Pep Total Protein Albumin LDL Cholesterol Direct Vitamin B12 Fluid Glucose Fluid Total Protein Vancomycin Trough Crossmatch 11/12/21 11/12/21 11/12/21 05:40 06:24 11:12 WBC RBC Hgb Hct MCV MCH MCHC RDW Plt Count Seg Neuts % (Manual) Lymphocytes % (Manual) Seg Neutrophils # Man Lymphocytes # (Manual) Monocytes # (Manual) PT INR D-Dimer ABG pH 7.586 H ABG pO2 150.6 H ABG HCO3 27.2 H ABG O2 Saturation 99.1 H ABG Base Excess 5.2 H ABG Hemoglobin 7.5 L Oxyhemoglobin Sodium Potassium Chloride Carbon Dioxide BUN Creatinine Glucose POC Glucose 132 H 140 H Lactic Acid Calcium Phosphorus Magnesium AST ALT Alkaline Phosphatase Lactate Dehydrogenase Troponin T C-Reactive Protein NT-Pro-B Natriuret Pep Total Protein Albumin LDL Cholesterol Direct Vitamin B12 Fluid Glucose Fluid Total Protein Vancomycin Trough Crossmatch 11/12/21 11/12/21 11/12/21 14:50 14:50 17:13 WBC 19.8 H RBC 3.27 L Hgb 7.1 L Hct 24.5 L MCV 75 L MCH 22 L MCHC 29 L RDW 22.3 H Plt Count Seg Neuts % (Manual) Lymphocytes % (Manual) Seg Neutrophils # Man Lymphocytes # (Manual) Monocytes # (Manual) PT INR D-Dimer ABG pH ABG pO2 ABG HCO3 ABG O2 Saturation ABG Base Excess ABG Hemoglobin Oxyhemoglobin Sodium 150 H Potassium 3.3 L Chloride 112.0 H Carbon Dioxide BUN 40 H Creatinine Glucose 151 H POC Glucose 121 H Lactic Acid Calcium 7.4 L Phosphorus 1.70 L Magnesium 1.40 L AST ALT Alkaline Phosphatase Lactate Dehydrogenase Troponin T C-Reactive Protein NT-Pro-B Natriuret Pep Total Protein Albumin LDL Cholesterol Direct Vitamin B12 Fluid Glucose Fluid Total Protein Vancomycin Trough Crossmatch 11/12/21 11/13/21 11/13/21 23:19 05:34 06:30 WBC RBC Hgb Hct MCV MCH MCHC RDW Plt Count Seg Neuts % (Manual) Lymphocytes % (Manual) Seg Neutrophils # Man Lymphocytes # (Manual) Monocytes # (Manual) PT INR D-Dimer ABG pH ABG pO2 ABG HCO3 ABG O2 Saturation ABG Base Excess ABG Hemoglobin Oxyhemoglobin Sodium 149 H Potassium Chloride 60.0 L Carbon Dioxide BUN 40 H Creatinine Glucose 146 H POC Glucose 113 H 132 H Lactic Acid Calcium 7.3 L Phosphorus Magnesium 2.40 H AST ALT 72 H Alkaline Phosphatase Lactate Dehydrogenase Troponin T C-Reactive Protein NT-Pro-B Natriuret Pep Total Protein 5.2 L Albumin 2.2 L LDL Cholesterol Direct Vitamin B12 Fluid Glucose Fluid Total Protein Vancomycin Trough Crossmatch 11/13/21 11/13/21 11/13/21 06:30 08:30 11:19 WBC 21.2 H RBC 3.12 L Hgb 6.8 L Hct 23.2 L MCV 74 L MCH 22 L MCHC 29 L RDW 22.2 H Plt Count 135 L Seg Neuts % (Manual) Lymphocytes % (Manual) Seg Neutrophils # Man Lymphocytes # (Manual) Monocytes # (Manual) PT INR D-Dimer ABG pH ABG pO2 ABG HCO3 ABG O2 Saturation ABG Base Excess ABG Hemoglobin Oxyhemoglobin Sodium Potassium Chloride Carbon Dioxide BUN Creatinine Glucose POC Glucose 136 H Lactic Acid Calcium Phosphorus Magnesium AST ALT Alkaline Phosphatase Lactate Dehydrogenase Troponin T C-Reactive Protein NT-Pro-B Natriuret Pep Total Protein Albumin LDL Cholesterol Direct Vitamin B12 Fluid Glucose Fluid Total Protein Vancomycin Trough Crossmatch See Detail 11/13/21 11/14/21 11/14/21 18:21 00:01 04:46 WBC 20.0 H RBC 3.41 L Hgb 7.9 L Hct 26.8 L MCV MCH 23 L MCHC 29 L RDW 24.0 H Plt Count Seg Neuts % (Manual) Lymphocytes % (Manual) Seg Neutrophils # Man Lymphocytes # (Manual) Monocytes # (Manual) PT INR D-Dimer ABG pH ABG pO2 ABG HCO3 ABG O2 Saturation ABG Base Excess ABG Hemoglobin Oxyhemoglobin Sodium Potassium Chloride Carbon Dioxide BUN Creatinine Glucose POC Glucose 149 H 141 H Lactic Acid Calcium Phosphorus Magnesium AST ALT Alkaline Phosphatase Lactate Dehydrogenase Troponin T C-Reactive Protein NT-Pro-B Natriuret Pep Total Protein Albumin LDL Cholesterol Direct Vitamin B12 Fluid Glucose Fluid Total Protein Vancomycin Trough Crossmatch 11/14/21 11/14/21 11/14/21 04:46 05:10 11:10 WBC RBC Hgb Hct MCV MCH MCHC RDW Plt Count Seg Neuts % (Manual) Lymphocytes % (Manual) Seg Neutrophils # Man Lymphocytes # (Manual) Monocytes # (Manual) PT INR D-Dimer ABG pH ABG pO2 ABG HCO3 ABG O2 Saturation ABG Base Excess ABG Hemoglobin Oxyhemoglobin Sodium 148 H Potassium Chloride 113.1 H Carbon Dioxide BUN 43 H Creatinine Glucose 140 H POC Glucose 132 H 133 H Lactic Acid Calcium 7.5 L Phosphorus Magnesium AST ALT Alkaline Phosphatase Lactate Dehydrogenase Troponin T C-Reactive Protein NT-Pro-B Natriuret Pep Total Protein Albumin LDL Cholesterol Direct Vitamin B12 Fluid Glucose Fluid Total Protein Vancomycin Trough Crossmatch 11/14/21 11/14/21 11/14/21 16:14 17:48 23:23 WBC RBC Hgb Hct MCV MCH MCHC RDW Plt Count Seg Neuts % (Manual) Lymphocytes % (Manual) Seg Neutrophils # Man Lymphocytes # (Manual) Monocytes # (Manual) PT INR D-Dimer ABG pH ABG pO2 ABG HCO3 28.0 H ABG O2 Saturation ABG Base Excess 3.1 H ABG Hemoglobin 5.8 L Oxyhemoglobin 94.8 L Sodium Potassium Chloride Carbon Dioxide BUN Creatinine Glucose POC Glucose 130 H 136 H Lactic Acid Calcium Phosphorus Magnesium AST ALT Alkaline Phosphatase Lactate Dehydrogenase Troponin T C-Reactive Protein NT-Pro-B Natriuret Pep Total Protein Albumin LDL Cholesterol Direct Vitamin B12 Fluid Glucose Fluid Total Protein Vancomycin Trough Crossmatch 11/15/21 11/15/21 11/15/21 05:20 05:50 05:50 WBC 19.9 H RBC 3.50 L Hgb 8.2 L Hct 27.9 L MCV MCH 23 L MCHC 29 L RDW 24.9 H Plt Count Seg Neuts % (Manual) Lymphocytes % (Manual) Seg Neutrophils # Man Lymphocytes # (Manual) Monocytes # (Manual) PT INR D-Dimer ABG pH ABG pO2 ABG HCO3 ABG O2 Saturation ABG Base Excess ABG Hemoglobin Oxyhemoglobin Sodium 149 H Potassium Chloride 112.0 H Carbon Dioxide BUN 48 H Creatinine Glucose 152 H POC Glucose 137 H Lactic Acid Calcium 7.9 L Phosphorus Magnesium AST ALT Alkaline Phosphatase Lactate Dehydrogenase Troponin T C-Reactive Protein NT-Pro-B Natriuret Pep Total Protein Albumin LDL Cholesterol Direct Vitamin B12 Fluid Glucose Fluid Total Protein Vancomycin Trough Crossmatch 11/15/21 11/15/21 11/15/21 12:12 17:07 23:24 WBC RBC Hgb Hct MCV MCH MCHC RDW Plt Count Seg Neuts % (Manual) Lymphocytes % (Manual) Seg Neutrophils # Man Lymphocytes # (Manual) Monocytes # (Manual) PT INR D-Dimer ABG pH ABG pO2 ABG HCO3 ABG O2 Saturation ABG Base Excess ABG Hemoglobin Oxyhemoglobin Sodium Potassium Chloride Carbon Dioxide BUN Creatinine Glucose POC Glucose 114 H 135 H 123 H Lactic Acid Calcium Phosphorus Magnesium AST ALT Alkaline Phosphatase Lactate Dehydrogenase Troponin T C-Reactive Protein NT-Pro-B Natriuret Pep Total Protein Albumin LDL Cholesterol Direct Vitamin B12 Fluid Glucose Fluid Total Protein Vancomycin Trough Crossmatch 11/16/21 11/16/21 11/16/21 05:21 10:00 10:00 WBC 21.7 H RBC 2.57 L Hgb 6.0 L Hct 20.2 L D MCV MCH 24 L MCHC RDW 26.3 H Plt Count Seg Neuts % (Manual) Lymphocytes % (Manual) Seg Neutrophils # Man Lymphocytes # (Manual) Monocytes # (Manual) PT INR D-Dimer ABG pH ABG pO2 ABG HCO3 ABG O2 Saturation ABG Base Excess ABG Hemoglobin Oxyhemoglobin Sodium 153 H Potassium Chloride 114.9 H Carbon Dioxide BUN 74 H Creatinine Glucose 155 H POC Glucose 127 H Lactic Acid Calcium 8.1 L Phosphorus Magnesium AST ALT Alkaline Phosphatase Lactate Dehydrogenase Troponin T C-Reactive Protein NT-Pro-B Natriuret Pep Total Protein Albumin LDL Cholesterol Direct Vitamin B12 Fluid Glucose Fluid Total Protein Vancomycin Trough Crossmatch 11/16/21 11/16/21 11/16/21 11:34 14:00 15:25 WBC 17.2 H RBC 2.08 L Hgb 4.7 L* Hct 16.2 L* MCV 78 L MCH 23 L MCHC 29 L RDW 26.0 H Plt Count Seg Neuts % (Manual) 87.0 H Lymphocytes % (Manual) 8.0 L Seg Neutrophils # Man 15.0 H Lymphocytes # (Manual) Monocytes # (Manual) 0.9 H PT INR D-Dimer ABG pH ABG pO2 ABG HCO3 ABG O2 Saturation ABG Base Excess ABG Hemoglobin Oxyhemoglobin Sodium Potassium Chloride Carbon Dioxide BUN Creatinine Glucose POC Glucose 131 H Lactic Acid Calcium Phosphorus Magnesium AST ALT Alkaline Phosphatase Lactate Dehydrogenase Troponin T C-Reactive Protein NT-Pro-B Natriuret Pep Total Protein Albumin LDL Cholesterol Direct Vitamin B12 Fluid Glucose Fluid Total Protein Vancomycin Trough Crossmatch See Detail 11/16/21 11/16/21 11/16/21 15:25 17:21 22:43 WBC RBC Hgb 8.6 L D Hct 27.7 L D MCV MCH MCHC RDW Plt Count Seg Neuts % (Manual) Lymphocytes % (Manual) Seg Neutrophils # Man Lymphocytes # (Manual) Monocytes # (Manual) PT INR D-Dimer ABG pH ABG pO2 ABG HCO3 ABG O2 Saturation ABG Base Excess ABG Hemoglobin Oxyhemoglobin Sodium 148 H Potassium Chloride 113.2 H Carbon Dioxide BUN 84 H Creatinine Glucose 164 H POC Glucose 124 H Lactic Acid Calcium 7.6 L Phosphorus Magnesium AST ALT Alkaline Phosphatase Lactate Dehydrogenase Troponin T C-Reactive Protein NT-Pro-B Natriuret Pep Total Protein Albumin LDL Cholesterol Direct Vitamin B12 Fluid Glucose Fluid Total Protein Vancomycin Trough Crossmatch 11/16/21 11/17/21 11/17/21 23:07 05:33 05:56 WBC 25.1 H RBC 3.47 L Hgb 8.7 L Hct 28.5 L MCV MCH 25 L MCHC RDW 22.3 H Plt Count Seg Neuts % (Manual) Lymphocytes % (Manual) Seg Neutrophils # Man Lymphocytes # (Manual) Monocytes # (Manual) PT INR D-Dimer ABG pH ABG pO2 ABG HCO3 ABG O2 Saturation ABG Base Excess ABG Hemoglobin Oxyhemoglobin Sodium Potassium Chloride Carbon Dioxide BUN Creatinine Glucose POC Glucose 128 H 133 H Lactic Acid Calcium Phosphorus Magnesium AST ALT Alkaline Phosphatase Lactate Dehydrogenase Troponin T C-Reactive Protein NT-Pro-B Natriuret Pep Total Protein Albumin LDL Cholesterol Direct Vitamin B12 Fluid Glucose Fluid Total Protein Vancomycin Trough Crossmatch 11/17/21 11/17/21 11/17/21 05:56 11:00 11:55 WBC RBC Hgb 8.3 L Hct 26.9 L MCV MCH MCHC RDW Plt Count Seg Neuts % (Manual) Lymphocytes % (Manual) Seg Neutrophils # Man Lymphocytes # (Manual) Monocytes # (Manual) PT INR D-Dimer ABG pH ABG pO2 ABG HCO3 ABG O2 Saturation ABG Base Excess ABG Hemoglobin Oxyhemoglobin Sodium 151 H Potassium Chloride 113.6 H Carbon Dioxide BUN 85 H Creatinine Glucose 132 H POC Glucose 121 H Lactic Acid Calcium 7.8 L Phosphorus Magnesium AST ALT Alkaline Phosphatase Lactate Dehydrogenase Troponin T C-Reactive Protein NT-Pro-B Natriuret Pep Total Protein 5.1 L Albumin 2.2 L LDL Cholesterol Direct Vitamin B12 Fluid Glucose Fluid Total Protein Vancomycin Trough Crossmatch 11/17/21 11/17/21 11/18/21 18:04 18:55 00:26 WBC RBC Hgb 7.5 L 7.1 L Hct 24.8 L 23.6 L MCV MCH MCHC RDW Plt Count Seg Neuts % (Manual) Lymphocytes % (Manual) Seg Neutrophils # Man Lymphocytes # (Manual) Monocytes # (Manual) PT INR D-Dimer ABG pH ABG pO2 ABG HCO3 ABG O2 Saturation ABG Base Excess ABG Hemoglobin Oxyhemoglobin Sodium Potassium Chloride Carbon Dioxide BUN Creatinine Glucose POC Glucose 144 H Lactic Acid Calcium Phosphorus Magnesium AST ALT Alkaline Phosphatase Lactate Dehydrogenase Troponin T C-Reactive Protein NT-Pro-B Natriuret Pep Total Protein Albumin LDL Cholesterol Direct Vitamin B12 Fluid Glucose Fluid Total Protein Vancomycin Trough Crossmatch 11/18/21 11/18/21 11/18/21 00:43 05:10 05:10 WBC 12.5 H RBC 2.39 L Hgb 6.1 L Hct 20.2 L MCV MCH 25 L MCHC RDW 23.2 H Plt Count Seg Neuts % (Manual) Lymphocytes % (Manual) Seg Neutrophils # Man Lymphocytes # (Manual) Monocytes # (Manual) PT INR D-Dimer ABG pH ABG pO2 ABG HCO3 ABG O2 Saturation ABG Base Excess ABG Hemoglobin Oxyhemoglobin Sodium 131 L D Potassium 2.9 L* D Chloride 97.8 L Carbon Dioxide BUN 58 H Creatinine Glucose 665 H* POC Glucose 139 H Lactic Acid Calcium 7.0 L Phosphorus 2.20 L D Magnesium 1.50 L AST ALT Alkaline Phosphatase Lactate Dehydrogenase Troponin T C-Reactive Protein NT-Pro-B Natriuret Pep Total Protein Albumin LDL Cholesterol Direct Vitamin B12 Fluid Glucose Fluid Total Protein Vancomycin Trough Crossmatch 11/18/21 11/18/21 11/18/21 05:23 07:10 10:45 WBC RBC Hgb Hct MCV MCH MCHC RDW Plt Count Seg Neuts % (Manual) Lymphocytes % (Manual) Seg Neutrophils # Man Lymphocytes # (Manual) Monocytes # (Manual) PT INR D-Dimer ABG pH ABG pO2 ABG HCO3 ABG O2 Saturation ABG Base Excess ABG Hemoglobin Oxyhemoglobin Sodium 148 H D Potassium 3.1 L Chloride 111.9 H Carbon Dioxide BUN 63 H Creatinine Glucose 141 H POC Glucose 124 H Lactic Acid Calcium 8.1 L D Phosphorus Magnesium AST ALT Alkaline Phosphatase Lactate Dehydrogenase Troponin T C-Reactive Protein NT-Pro-B Natriuret Pep Total Protein Albumin LDL Cholesterol Direct Vitamin B12 Fluid Glucose Fluid Total Protein Vancomycin Trough Crossmatch See Detail 11/18/21 11/19/21 11/19/21 11:57 00:19 04:55 WBC RBC 3.35 L Hgb 9.0 L 8.9 L Hct 28.3 L D 28.1 L MCV MCH 27 L MCHC RDW 20.3 H Plt Count Seg Neuts % (Manual) Lymphocytes % (Manual) Seg Neutrophils # Man Lymphocytes # (Manual) Monocytes # (Manual) PT INR D-Dimer ABG pH ABG pO2 ABG HCO3 ABG O2 Saturation ABG Base Excess ABG Hemoglobin Oxyhemoglobin Sodium Potassium Chloride Carbon Dioxide BUN Creatinine Glucose POC Glucose 119 H Lactic Acid Calcium Phosphorus Magnesium AST ALT Alkaline Phosphatase Lactate Dehydrogenase Troponin T C-Reactive Protein NT-Pro-B Natriuret Pep Total Protein Albumin LDL Cholesterol Direct Vitamin B12 Fluid Glucose Fluid Total Protein Vancomycin Trough Crossmatch 11/19/21 11/19/21 11/20/21 04:55 05:42 00:55 WBC RBC Hgb 9.0 L Hct 28.6 L MCV MCH MCHC RDW Plt Count Seg Neuts % (Manual) Lymphocytes % (Manual) Seg Neutrophils # Man Lymphocytes # (Manual) Monocytes # (Manual) PT INR D-Dimer ABG pH ABG pO2 ABG HCO3 ABG O2 Saturation ABG Base Excess ABG Hemoglobin Oxyhemoglobin Sodium Potassium 3.5 L Chloride 108.6 H Carbon Dioxide BUN 47 H Creatinine Glucose 207 H POC Glucose 63 L Lactic Acid Calcium 7.1 L Phosphorus Magnesium AST ALT Alkaline Phosphatase Lactate Dehydrogenase Troponin T C-Reactive Protein NT-Pro-B Natriuret Pep Total Protein Albumin LDL Cholesterol Direct Vitamin B12 Fluid Glucose Fluid Total Protein Vancomycin Trough Crossmatch 11/20/21 11/20/21 11/20/21 05:40 05:40 Unknown WBC RBC 3.40 L Hgb 9.1 L Hct 28.8 L MCV MCH 27 L MCHC RDW 20.7 H Plt Count Seg Neuts % (Manual) Lymphocytes % (Manual) Seg Neutrophils # Man Lymphocytes # (Manual) Monocytes # (Manual) PT INR D-Dimer ABG pH ABG pO2 ABG HCO3 ABG O2 Saturation ABG Base Excess -2.7 L ABG Hemoglobin 9.5 L Oxyhemoglobin 94.3 L Sodium Potassium 3.5 L Chloride 108.9 H Carbon Dioxide BUN 37 H Creatinine Glucose 117 H POC Glucose Lactic Acid Calcium 7.5 L Phosphorus Magnesium AST ALT Alkaline Phosphatase Lactate Dehydrogenase Troponin T C-Reactive Protein NT-Pro-B Natriuret Pep Total Protein Albumin LDL Cholesterol Direct Vitamin B12 Fluid Glucose Fluid Total Protein Vancomycin Trough Crossmatch 11/21/21 11/21/21 11/21/21 04:30 04:30 16:00 WBC RBC 3.25 L Hgb 8.6 L Hct 28.1 L MCV MCH 26 L MCHC RDW 20.7 H Plt Count Seg Neuts % (Manual) Lymphocytes % (Manual) Seg Neutrophils # Man Lymphocytes # (Manual) Monocytes # (Manual) PT INR D-Dimer ABG pH ABG pO2 114.2 H ABG HCO3 ABG O2 Saturation ABG Base Excess ABG Hemoglobin 9.1 L Oxyhemoglobin Sodium 134 L Potassium Chloride Carbon Dioxide 20 L BUN 34 H Creatinine Glucose POC Glucose Lactic Acid Calcium 7.1 L Phosphorus Magnesium AST ALT Alkaline Phosphatase Lactate Dehydrogenase Troponin T C-Reactive Protein NT-Pro-B Natriuret Pep Total Protein Albumin LDL Cholesterol Direct Vitamin B12 Fluid Glucose Fluid Total Protein Vancomycin Trough Crossmatch 11/22/21 11/22/21 11/22/21 07:07 07:07 23:54 WBC RBC 3.30 L Hgb 9.0 L Hct 28.5 L MCV MCH 27 L MCHC RDW 21.0 H Plt Count Seg Neuts % (Manual) Lymphocytes % (Manual) Seg Neutrophils # Man Lymphocytes # (Manual) Monocytes # (Manual) PT INR D-Dimer ABG pH ABG pO2 ABG HCO3 ABG O2 Saturation ABG Base Excess ABG Hemoglobin Oxyhemoglobin Sodium Potassium Chloride Carbon Dioxide BUN 32 H Creatinine Glucose 106 H POC Glucose 110 H Lactic Acid Calcium 7.5 L Phosphorus Magnesium AST ALT Alkaline Phosphatase Lactate Dehydrogenase Troponin T C-Reactive Protein NT-Pro-B Natriuret Pep Total Protein Albumin LDL Cholesterol Direct Vitamin B12 Fluid Glucose Fluid Total Protein Vancomycin Trough Crossmatch 11/23/21 11/23/21 11/23/21 04:38 04:38 06:01 WBC RBC 3.23 L Hgb 8.8 L Hct 28.0 L MCV MCH 27 L MCHC RDW 21.3 H Plt Count Seg Neuts % (Manual) Lymphocytes % (Manual) Seg Neutrophils # Man Lymphocytes # (Manual) Monocytes # (Manual) PT INR D-Dimer ABG pH ABG pO2 ABG HCO3 ABG O2 Saturation ABG Base Excess ABG Hemoglobin Oxyhemoglobin Sodium 136 L Potassium Chloride Carbon Dioxide 20 L BUN 32 H Creatinine Glucose 109 H POC Glucose 115 H Lactic Acid Calcium 7.7 L Phosphorus Magnesium AST ALT Alkaline Phosphatase Lactate Dehydrogenase Troponin T C-Reactive Protein NT-Pro-B Natriuret Pep Total Protein Albumin LDL Cholesterol Direct Vitamin B12 Fluid Glucose Fluid Total Protein Vancomycin Trough Crossmatch 11/23/21 11/24/21 11/24/21 11:40 00:03 04:13 WBC RBC 3.18 L Hgb 8.5 L Hct 27.5 L MCV MCH 27 L MCHC RDW 21.6 H Plt Count Seg Neuts % (Manual) Lymphocytes % (Manual) Seg Neutrophils # Man Lymphocytes # (Manual) Monocytes # (Manual) PT INR D-Dimer ABG pH ABG pO2 ABG HCO3 ABG O2 Saturation ABG Base Excess ABG Hemoglobin Oxyhemoglobin Sodium Potassium Chloride Carbon Dioxide BUN Creatinine Glucose POC Glucose 117 H 111 H Lactic Acid Calcium Phosphorus Magnesium AST ALT Alkaline Phosphatase Lactate Dehydrogenase Troponin T C-Reactive Protein NT-Pro-B Natriuret Pep Total Protein Albumin LDL Cholesterol Direct Vitamin B12 Fluid Glucose Fluid Total Protein Vancomycin Trough Crossmatch 11/24/21 11/24/21 11/24/21 04:13 05:30 11:10 WBC RBC Hgb Hct MCV MCH MCHC RDW Plt Count Seg Neuts % (Manual) Lymphocytes % (Manual) Seg Neutrophils # Man Lymphocytes # (Manual) Monocytes # (Manual) PT INR D-Dimer ABG pH ABG pO2 ABG HCO3 ABG O2 Saturation ABG Base Excess ABG Hemoglobin Oxyhemoglobin Sodium Potassium Chloride Carbon Dioxide BUN 31 H Creatinine Glucose 101 H POC Glucose 115 H 107 H Lactic Acid Calcium 7.7 L Phosphorus Magnesium AST ALT Alkaline Phosphatase Lactate Dehydrogenase Troponin T C-Reactive Protein NT-Pro-B Natriuret Pep Total Protein Albumin LDL Cholesterol Direct Vitamin B12 Fluid Glucose Fluid Total Protein Vancomycin Trough Crossmatch 11/24/21 11/24/21 11/25/21 16:34 17:57 05:12 WBC RBC 3.11 L Hgb 8.2 L Hct 26.6 L MCV MCH 26 L MCHC RDW 21.3 H Plt Count Seg Neuts % (Manual) Lymphocytes % (Manual) Seg Neutrophils # Man Lymphocytes # (Manual) Monocytes # (Manual) PT INR D-Dimer ABG pH ABG pO2 ABG HCO3 ABG O2 Saturation ABG Base Excess ABG Hemoglobin Oxyhemoglobin Sodium Potassium Chloride Carbon Dioxide BUN Creatinine Glucose POC Glucose 115 H 110 H Lactic Acid Calcium Phosphorus Magnesium AST ALT Alkaline Phosphatase Lactate Dehydrogenase Troponin T C-Reactive Protein NT-Pro-B Natriuret Pep Total Protein Albumin LDL Cholesterol Direct Vitamin B12 Fluid Glucose Fluid Total Protein Vancomycin Trough Crossmatch 11/25/21 11/25/21 11/26/21 05:12 11:20 05:00 WBC RBC 3.30 L Hgb 8.8 L Hct 28.2 L MCV MCH 27 L MCHC RDW 20.7 H Plt Count Seg Neuts % (Manual) Lymphocytes % (Manual) Seg Neutrophils # Man Lymphocytes # (Manual) Monocytes # (Manual) PT INR D-Dimer ABG pH ABG pO2 ABG HCO3 ABG O2 Saturation ABG Base Excess ABG Hemoglobin Oxyhemoglobin Sodium Potassium Chloride Carbon Dioxide BUN 32 H Creatinine Glucose 118 H POC Glucose 118 H Lactic Acid Calcium 8.2 L Phosphorus Magnesium AST ALT Alkaline Phosphatase Lactate Dehydrogenase Troponin T C-Reactive Protein NT-Pro-B Natriuret Pep Total Protein Albumin LDL Cholesterol Direct Vitamin B12 Fluid Glucose Fluid Total Protein Vancomycin Trough Crossmatch 11/26/21 11/26/21 11/26/21 05:00 05:00 05:44 WBC RBC Hgb Hct MCV MCH MCHC RDW Plt Count Seg Neuts % (Manual) Lymphocytes % (Manual) Seg Neutrophils # Man Lymphocytes # (Manual) Monocytes # (Manual) PT 16.9 H INR 1.24 H D-Dimer ABG pH ABG pO2 ABG HCO3 ABG O2 Saturation ABG Base Excess ABG Hemoglobin Oxyhemoglobin Sodium Potassium Chloride Carbon Dioxide BUN 31 H Creatinine Glucose 104 H POC Glucose 110 H Lactic Acid Calcium 7.9 L Phosphorus Magnesium AST ALT Alkaline Phosphatase Lactate Dehydrogenase Troponin T C-Reactive Protein NT-Pro-B Natriuret Pep Total Protein Albumin LDL Cholesterol Direct Vitamin B12 Fluid Glucose Fluid Total Protein Vancomycin Trough Crossmatch 11/26/21 11/27/21 11/27/21 23:55 07:40 07:40 WBC RBC 3.18 L Hgb 8.5 L Hct 27.0 L MCV MCH 27 L MCHC RDW 21.2 H Plt Count Seg Neuts % (Manual) Lymphocytes % (Manual) Seg Neutrophils # Man Lymphocytes # (Manual) Monocytes # (Manual) PT INR D-Dimer ABG pH ABG pO2 ABG HCO3 ABG O2 Saturation ABG Base Excess ABG Hemoglobin Oxyhemoglobin Sodium Potassium Chloride Carbon Dioxide BUN 27 H Creatinine Glucose 112 H POC Glucose 63 L Lactic Acid Calcium 7.6 L Phosphorus Magnesium AST ALT Alkaline Phosphatase Lactate Dehydrogenase Troponin T C-Reactive Protein NT-Pro-B Natriuret Pep Total Protein Albumin LDL Cholesterol Direct Vitamin B12 Fluid Glucose Fluid Total Protein Vancomycin Trough Crossmatch 11/27/21 11/27/21 11/27/21 12:04 13:40 13:40 WBC RBC 3.31 L Hgb 8.7 L Hct 28.0 L MCV MCH 26 L MCHC RDW 20.7 H Plt Count Seg Neuts % (Manual) Lymphocytes % (Manual) Seg Neutrophils # Man Lymphocytes # (Manual) Monocytes # (Manual) PT INR D-Dimer ABG pH ABG pO2 ABG HCO3 ABG O2 Saturation ABG Base Excess ABG Hemoglobin Oxyhemoglobin Sodium 136 L Potassium Chloride Carbon Dioxide BUN 25 H Creatinine Glucose 127 H POC Glucose 109 H Lactic Acid Calcium 7.6 L Phosphorus Magnesium 1.40 L AST ALT Alkaline Phosphatase Lactate Dehydrogenase Troponin T C-Reactive Protein NT-Pro-B Natriuret Pep Total Protein Albumin LDL Cholesterol Direct Vitamin B12 Fluid Glucose Fluid Total Protein Vancomycin Trough Crossmatch 11/27/21 11/27/21 11/28/21 17:44 23:33 12:20 WBC RBC Hgb Hct MCV MCH MCHC RDW Plt Count Seg Neuts % (Manual) Lymphocytes % (Manual) Seg Neutrophils # Man Lymphocytes # (Manual) Monocytes # (Manual) PT INR D-Dimer ABG pH ABG pO2 ABG HCO3 ABG O2 Saturation ABG Base Excess ABG Hemoglobin Oxyhemoglobin Sodium Potassium Chloride Carbon Dioxide BUN Creatinine Glucose POC Glucose 107 H 108 H 114 H Lactic Acid Calcium Phosphorus Magnesium AST ALT Alkaline Phosphatase Lactate Dehydrogenase Troponin T C-Reactive Protein NT-Pro-B Natriuret Pep Total Protein Albumin LDL Cholesterol Direct Vitamin B12 Fluid Glucose Fluid Total Protein Vancomycin Trough Crossmatch 11/29/21 11/29/21 11/29/21 00:09 03:20 03:20 WBC RBC 3.05 L Hgb 8.2 L Hct 25.8 L MCV MCH 27 L MCHC RDW 20.9 H Plt Count Seg Neuts % (Manual) Lymphocytes % (Manual) Seg Neutrophils # Man Lymphocytes # (Manual) Monocytes # (Manual) PT INR D-Dimer ABG pH ABG pO2 ABG HCO3 ABG O2 Saturation ABG Base Excess ABG Hemoglobin Oxyhemoglobin Sodium 133 L Potassium Chloride Carbon Dioxide BUN 24 H Creatinine Glucose 137 H POC Glucose 134 H Lactic Acid Calcium 7.4 L Phosphorus Magnesium AST ALT Alkaline Phosphatase Lactate Dehydrogenase Troponin T C-Reactive Protein NT-Pro-B Natriuret Pep Total Protein Albumin LDL Cholesterol Direct Vitamin B12 Fluid Glucose Fluid Total Protein Vancomycin Trough Crossmatch 11/29/21 11/29/21 11/29/21 05:38 11:39 17:11 WBC RBC Hgb Hct MCV MCH MCHC RDW Plt Count Seg Neuts % (Manual) Lymphocytes % (Manual) Seg Neutrophils # Man Lymphocytes # (Manual) Monocytes # (Manual) PT INR D-Dimer ABG pH ABG pO2 ABG HCO3 ABG O2 Saturation ABG Base Excess ABG Hemoglobin Oxyhemoglobin Sodium Potassium Chloride Carbon Dioxide BUN Creatinine Glucose POC Glucose 117 H 143 H 124 H Lactic Acid Calcium Phosphorus Magnesium AST ALT Alkaline Phosphatase Lactate Dehydrogenase Troponin T C-Reactive Protein NT-Pro-B Natriuret Pep Total Protein Albumin LDL Cholesterol Direct Vitamin B12 Fluid Glucose Fluid Total Protein Vancomycin Trough Crossmatch 11/29/21 11/30/21 11/30/21 20:15 05:40 05:40 WBC 12.6 H RBC 3.41 L Hgb 9.1 L Hct 28.9 L MCV MCH 27 L MCHC RDW 20.4 H Plt Count Seg Neuts % (Manual) Lymphocytes % (Manual) Seg Neutrophils # Man Lymphocytes # (Manual) Monocytes # (Manual) PT INR D-Dimer ABG pH ABG pO2 ABG HCO3 ABG O2 Saturation ABG Base Excess ABG Hemoglobin Oxyhemoglobin Sodium Potassium Chloride Carbon Dioxide BUN 24 H Creatinine Glucose 131 H POC Glucose Lactic Acid Calcium 7.6 L Phosphorus Magnesium AST ALT Alkaline Phosphatase Lactate Dehydrogenase Troponin T 0.045 H C-Reactive Protein NT-Pro-B Natriuret Pep Total Protein Albumin LDL Cholesterol Direct 25 L Vitamin B12 Fluid Glucose Fluid Total Protein Vancomycin Trough Crossmatch 11/30/21 11/30/21 12/01/21 11:29 16:51 05:00 WBC RBC 2.97 L Hgb 8.0 L Hct 25.0 L MCV MCH 27 L MCHC RDW 20.8 H Plt Count Seg Neuts % (Manual) Lymphocytes % (Manual) Seg Neutrophils # Man Lymphocytes # (Manual) Monocytes # (Manual) PT INR D-Dimer ABG pH ABG pO2 ABG HCO3 ABG O2 Saturation ABG Base Excess ABG Hemoglobin Oxyhemoglobin Sodium Potassium Chloride Carbon Dioxide BUN Creatinine Glucose POC Glucose 123 H 114 H Lactic Acid Calcium Phosphorus Magnesium AST ALT Alkaline Phosphatase Lactate Dehydrogenase Troponin T C-Reactive Protein NT-Pro-B Natriuret Pep Total Protein Albumin LDL Cholesterol Direct Vitamin B12 Fluid Glucose Fluid Total Protein Vancomycin Trough Crossmatch 12/01/21 12/01/21 12/01/21 05:00 05:25 11:54 WBC RBC Hgb Hct MCV MCH MCHC RDW Plt Count Seg Neuts % (Manual) Lymphocytes % (Manual) Seg Neutrophils # Man Lymphocytes # (Manual) Monocytes # (Manual) PT INR D-Dimer ABG pH ABG pO2 ABG HCO3 ABG O2 Saturation ABG Base Excess ABG Hemoglobin Oxyhemoglobin Sodium 136 L Potassium Chloride Carbon Dioxide BUN 24 H Creatinine Glucose 117 H POC Glucose 108 H 107 H Lactic Acid Calcium 7.5 L Phosphorus Magnesium 1.60 L AST ALT Alkaline Phosphatase Lactate Dehydrogenase Troponin T C-Reactive Protein NT-Pro-B Natriuret Pep Total Protein Albumin LDL Cholesterol Direct Vitamin B12 Fluid Glucose Fluid Total Protein Vancomycin Trough Crossmatch 12/01/21 12/02/21 12/02/21 17:40 00:07 04:20 WBC RBC 2.92 L Hgb 7.7 L Hct 24.3 L MCV MCH 26 L MCHC RDW 20.5 H Plt Count Seg Neuts % (Manual) Lymphocytes % (Manual) Seg Neutrophils # Man Lymphocytes # (Manual) Monocytes # (Manual) PT INR D-Dimer ABG pH ABG pO2 ABG HCO3 ABG O2 Saturation ABG Base Excess ABG Hemoglobin Oxyhemoglobin Sodium Potassium Chloride Carbon Dioxide BUN Creatinine Glucose POC Glucose 123 H 110 H Lactic Acid Calcium Phosphorus Magnesium AST ALT Alkaline Phosphatase Lactate Dehydrogenase Troponin T C-Reactive Protein NT-Pro-B Natriuret Pep Total Protein Albumin LDL Cholesterol Direct Vitamin B12 Fluid Glucose Fluid Total Protein Vancomycin Trough Crossmatch 12/02/21 12/02/21 12/02/21 04:20 11:17 18:20 WBC RBC Hgb Hct MCV MCH MCHC RDW Plt Count Seg Neuts % (Manual) Lymphocytes % (Manual) Seg Neutrophils # Man Lymphocytes # (Manual) Monocytes # (Manual) PT INR D-Dimer ABG pH ABG pO2 ABG HCO3 ABG O2 Saturation ABG Base Excess ABG Hemoglobin Oxyhemoglobin Sodium 135 L Potassium Chloride Carbon Dioxide BUN 26 H Creatinine Glucose 121 H POC Glucose 117 H 113 H Lactic Acid Calcium 7.4 L Phosphorus Magnesium AST ALT Alkaline Phosphatase Lactate Dehydrogenase Troponin T C-Reactive Protein NT-Pro-B Natriuret Pep Total Protein Albumin LDL Cholesterol Direct Vitamin B12 Fluid Glucose Fluid Total Protein Vancomycin Trough Crossmatch 12/03/21 12/03/21 12/03/21 00:12 04:00 04:00 WBC RBC 2.99 L Hgb 7.8 L Hct 24.6 L MCV MCH 26 L MCHC RDW 20.2 H Plt Count Seg Neuts % (Manual) Lymphocytes % (Manual) Seg Neutrophils # Man Lymphocytes # (Manual) Monocytes # (Manual) PT INR D-Dimer ABG pH ABG pO2 ABG HCO3 ABG O2 Saturation ABG Base Excess ABG Hemoglobin Oxyhemoglobin Sodium 136 L Potassium Chloride Carbon Dioxide BUN 27 H Creatinine Glucose 133 H POC Glucose 121 H Lactic Acid Calcium 7.5 L Phosphorus Magnesium AST ALT Alkaline Phosphatase Lactate Dehydrogenase Troponin T C-Reactive Protein NT-Pro-B Natriuret Pep Total Protein Albumin LDL Cholesterol Direct Vitamin B12 Fluid Glucose Fluid Total Protein Vancomycin Trough Crossmatch 12/03/21 12/03/21 12/03/21 06:30 11:13 16:00 WBC RBC Hgb Hct MCV MCH MCHC RDW Plt Count Seg Neuts % (Manual) Lymphocytes % (Manual) Seg Neutrophils # Man Lymphocytes # (Manual) Monocytes # (Manual) PT INR D-Dimer ABG pH ABG pO2 ABG HCO3 ABG O2 Saturation ABG Base Excess ABG Hemoglobin Oxyhemoglobin Sodium Potassium Chloride Carbon Dioxide BUN Creatinine Glucose POC Glucose 129 H 125 H 125 H Lactic Acid Calcium Phosphorus Magnesium AST ALT Alkaline Phosphatase Lactate Dehydrogenase Troponin T C-Reactive Protein NT-Pro-B Natriuret Pep Total Protein Albumin LDL Cholesterol Direct Vitamin B12 Fluid Glucose Fluid Total Protein Vancomycin Trough Crossmatch 12/03/21 12/04/21 12/04/21 23:32 04:00 05:36 WBC RBC Hgb Hct MCV MCH MCHC RDW Plt Count Seg Neuts % (Manual) Lymphocytes % (Manual) Seg Neutrophils # Man Lymphocytes # (Manual) Monocytes # (Manual) PT INR D-Dimer ABG pH ABG pO2 ABG HCO3 ABG O2 Saturation ABG Base Excess ABG Hemoglobin Oxyhemoglobin Sodium Potassium 3.5 L Chloride Carbon Dioxide BUN 26 H Creatinine 0.5 L Glucose 151 H POC Glucose 133 H 142 H Lactic Acid Calcium 8.3 L Phosphorus Magnesium AST ALT Alkaline Phosphatase Lactate Dehydrogenase Troponin T C-Reactive Protein NT-Pro-B Natriuret Pep Total Protein Albumin LDL Cholesterol Direct Vitamin B12 Fluid Glucose Fluid Total Protein Vancomycin Trough Crossmatch 12/04/21 12/04/21 12/05/21 11:24 15:58 04:36 WBC RBC Hgb Hct MCV MCH MCHC RDW Plt Count Seg Neuts % (Manual) Lymphocytes % (Manual) Seg Neutrophils # Man Lymphocytes # (Manual) Monocytes # (Manual) PT INR D-Dimer ABG pH ABG pO2 ABG HCO3 ABG O2 Saturation ABG Base Excess ABG Hemoglobin Oxyhemoglobin Sodium Potassium Chloride Carbon Dioxide BUN 21 H Creatinine 0.5 L Glucose 119 H POC Glucose 130 H 111 H Lactic Acid Calcium 8.3 L Phosphorus Magnesium AST ALT Alkaline Phosphatase Lactate Dehydrogenase Troponin T C-Reactive Protein NT-Pro-B Natriuret Pep Total Protein Albumin LDL Cholesterol Direct Vitamin B12 Fluid Glucose Fluid Total Protein Vancomycin Trough Crossmatch 12/05/21 12/05/21 12/05/21 05:15 10:40 11:12 WBC RBC 2.98 L Hgb 8.1 L Hct 24.6 L MCV MCH 27 L MCHC RDW 20.8 H Plt Count Seg Neuts % (Manual) Lymphocytes % (Manual) Seg Neutrophils # Man Lymphocytes # (Manual) Monocytes # (Manual) PT INR D-Dimer ABG pH ABG pO2 ABG HCO3 ABG O2 Saturation ABG Base Excess ABG Hemoglobin Oxyhemoglobin Sodium Potassium Chloride Carbon Dioxide BUN Creatinine Glucose POC Glucose 107 H 110 H Lactic Acid Calcium Phosphorus Magnesium AST ALT Alkaline Phosphatase Lactate Dehydrogenase Troponin T C-Reactive Protein NT-Pro-B Natriuret Pep Total Protein Albumin LDL Cholesterol Direct Vitamin B12 Fluid Glucose Fluid Total Protein Vancomycin Trough Crossmatch 12/05/21 12/06/21 12/06/21 23:39 04:25 04:25 WBC RBC 2.95 L Hgb 7.9 L Hct 24.7 L MCV MCH 27 L MCHC RDW 20.9 H Plt Count Seg Neuts % (Manual) Lymphocytes % (Manual) Seg Neutrophils # Man Lymphocytes # (Manual) Monocytes # (Manual) PT INR D-Dimer ABG pH ABG pO2 ABG HCO3 ABG O2 Saturation ABG Base Excess ABG Hemoglobin Oxyhemoglobin Sodium Potassium Chloride Carbon Dioxide BUN 22 H Creatinine 0.5 L Glucose 136 H POC Glucose 118 H Lactic Acid Calcium 8.2 L Phosphorus Magnesium AST ALT Alkaline Phosphatase Lactate Dehydrogenase Troponin T C-Reactive Protein NT-Pro-B Natriuret Pep Total Protein Albumin LDL Cholesterol Direct Vitamin B12 Fluid Glucose Fluid Total Protein Vancomycin Trough Crossmatch 12/06/21 12/06/21 12/07/21 05:28 11:27 04:00 WBC RBC Hgb 7.2 L Hct 21.8 L MCV MCH MCHC RDW Plt Count Seg Neuts % (Manual) Lymphocytes % (Manual) Seg Neutrophils # Man Lymphocytes # (Manual) Monocytes # (Manual) PT INR D-Dimer ABG pH ABG pO2 ABG HCO3 ABG O2 Saturation ABG Base Excess ABG Hemoglobin Oxyhemoglobin Sodium Potassium Chloride Carbon Dioxide BUN Creatinine Glucose POC Glucose 142 H 126 H Lactic Acid Calcium Phosphorus Magnesium AST ALT Alkaline Phosphatase Lactate Dehydrogenase Troponin T C-Reactive Protein NT-Pro-B Natriuret Pep Total Protein Albumin LDL Cholesterol Direct Vitamin B12 Fluid Glucose Fluid Total Protein Vancomycin Trough Crossmatch 12/07/21 12/07/21 12/07/21 04:00 05:30 11:12 WBC RBC Hgb Hct MCV MCH MCHC RDW Plt Count Seg Neuts % (Manual) Lymphocytes % (Manual) Seg Neutrophils # Man Lymphocytes # (Manual) Monocytes # (Manual) PT INR D-Dimer ABG pH ABG pO2 ABG HCO3 ABG O2 Saturation ABG Base Excess ABG Hemoglobin Oxyhemoglobin Sodium Potassium Chloride Carbon Dioxide BUN 22 H Creatinine Glucose 119 H POC Glucose 121 H 124 H Lactic Acid Calcium 8.0 L Phosphorus Magnesium AST ALT Alkaline Phosphatase Lactate Dehydrogenase Troponin T C-Reactive Protein NT-Pro-B Natriuret Pep Total Protein Albumin LDL Cholesterol Direct Vitamin B12 Fluid Glucose Fluid Total Protein Vancomycin Trough Crossmatch 12/08/21 12/08/21 12/08/21 04:00 04:00 05:39 WBC RBC 2.81 L Hgb 7.7 L Hct 23.5 L MCV MCH MCHC RDW 21.2 H Plt Count Seg Neuts % (Manual) Lymphocytes % (Manual) Seg Neutrophils # Man Lymphocytes # (Manual) Monocytes # (Manual) PT INR D-Dimer ABG pH ABG pO2 ABG HCO3 ABG O2 Saturation ABG Base Excess ABG Hemoglobin Oxyhemoglobin Sodium 135 L Potassium Chloride Carbon Dioxide BUN 23 H Creatinine Glucose 109 H POC Glucose 112 H Lactic Acid Calcium Phosphorus Magnesium AST ALT Alkaline Phosphatase Lactate Dehydrogenase Troponin T C-Reactive Protein NT-Pro-B Natriuret Pep Total Protein Albumin LDL Cholesterol Direct Vitamin B12 Fluid Glucose Fluid Total Protein Vancomycin Trough Crossmatch 12/08/21 12/09/21 12/09/21 11:03 04:20 04:20 WBC RBC 2.67 L Hgb 7.6 L Hct 22.1 L MCV MCH MCHC RDW 20.8 H Plt Count Seg Neuts % (Manual) Lymphocytes % (Manual) Seg Neutrophils # Man Lymphocytes # (Manual) Monocytes # (Manual) PT INR D-Dimer ABG pH ABG pO2 ABG HCO3 ABG O2 Saturation ABG Base Excess ABG Hemoglobin Oxyhemoglobin Sodium 135 L Potassium Chloride 97.8 L Carbon Dioxide BUN 26 H Creatinine Glucose 119 H POC Glucose 108 H Lactic Acid Calcium 7.7 L Phosphorus Magnesium AST ALT Alkaline Phosphatase Lactate Dehydrogenase Troponin T C-Reactive Protein NT-Pro-B Natriuret Pep Total Protein Albumin LDL Cholesterol Direct Vitamin B12 Fluid Glucose Fluid Total Protein Vancomycin Trough Crossmatch 12/09/21 12/10/21 12/10/21 11:26 04:33 11:12 WBC RBC Hgb Hct MCV MCH MCHC RDW Plt Count Seg Neuts % (Manual) Lymphocytes % (Manual) Seg Neutrophils # Man Lymphocytes # (Manual) Monocytes # (Manual) PT INR D-Dimer ABG pH ABG pO2 ABG HCO3 ABG O2 Saturation ABG Base Excess ABG Hemoglobin Oxyhemoglobin Sodium 136 L Potassium Chloride Carbon Dioxide BUN 27 H Creatinine Glucose 117 H POC Glucose 110 H 117 H Lactic Acid Calcium 8.2 L Phosphorus Magnesium AST ALT Alkaline Phosphatase Lactate Dehydrogenase Troponin T C-Reactive Protein NT-Pro-B Natriuret Pep Total Protein Albumin LDL Cholesterol Direct Vitamin B12 Fluid Glucose Fluid Total Protein Vancomycin Trough Crossmatch 12/10/21 12/10/21 12/11/21 16:02 23:31 04:35 WBC RBC 2.57 L Hgb 7.0 L Hct 21.4 L MCV MCH 27 L MCHC RDW 21.1 H Plt Count Seg Neuts % (Manual) Lymphocytes % (Manual) Seg Neutrophils # Man Lymphocytes # (Manual) Monocytes # (Manual) PT INR D-Dimer ABG pH ABG pO2 ABG HCO3 ABG O2 Saturation ABG Base Excess ABG Hemoglobin Oxyhemoglobin Sodium Potassium Chloride Carbon Dioxide BUN Creatinine Glucose POC Glucose 137 H 111 H Lactic Acid Calcium Phosphorus Magnesium AST ALT Alkaline Phosphatase Lactate Dehydrogenase Troponin T C-Reactive Protein NT-Pro-B Natriuret Pep Total Protein Albumin LDL Cholesterol Direct Vitamin B12 Fluid Glucose Fluid Total Protein Vancomycin Trough Crossmatch 12/11/21 12/11/21 12/11/21 04:35 12:46 16:07 WBC RBC Hgb Hct MCV MCH MCHC RDW Plt Count Seg Neuts % (Manual) Lymphocytes % (Manual) Seg Neutrophils # Man Lymphocytes # (Manual) Monocytes # (Manual) PT INR D-Dimer ABG pH ABG pO2 ABG HCO3 ABG O2 Saturation ABG Base Excess ABG Hemoglobin Oxyhemoglobin Sodium 136 L Potassium Chloride Carbon Dioxide BUN 27 H Creatinine Glucose 112 H POC Glucose 115 H 111 H Lactic Acid Calcium 7.6 L Phosphorus Magnesium AST ALT Alkaline Phosphatase Lactate Dehydrogenase Troponin T C-Reactive Protein NT-Pro-B Natriuret Pep Total Protein Albumin LDL Cholesterol Direct Vitamin B12 Fluid Glucose Fluid Total Protein Vancomycin Trough Crossmatch 12/11/21 12/12/21 12/12/21 23:42 04:30 04:30 WBC RBC 2.60 L Hgb 7.1 L Hct 21.5 L MCV MCH 27 L MCHC RDW 20.3 H Plt Count Seg Neuts % (Manual) Lymphocytes % (Manual) Seg Neutrophils # Man Lymphocytes # (Manual) Monocytes # (Manual) PT INR D-Dimer ABG pH ABG pO2 ABG HCO3 ABG O2 Saturation ABG Base Excess ABG Hemoglobin Oxyhemoglobin Sodium 135 L Potassium Chloride 97.9 L Carbon Dioxide BUN 26 H Creatinine 0.5 L Glucose 138 H POC Glucose 115 H Lactic Acid Calcium 8.2 L Phosphorus Magnesium AST ALT Alkaline Phosphatase Lactate Dehydrogenase Troponin T C-Reactive Protein NT-Pro-B Natriuret Pep Total Protein Albumin LDL Cholesterol Direct Vitamin B12 Fluid Glucose Fluid Total Protein Vancomycin Trough Crossmatch 12/12/21 12/12/21 12/12/21 04:30 05:10 11:51 WBC RBC Hgb Hct MCV MCH MCHC RDW Plt Count Seg Neuts % (Manual) Lymphocytes % (Manual) Seg Neutrophils # Man Lymphocytes # (Manual) Monocytes # (Manual) PT INR D-Dimer ABG pH ABG pO2 ABG HCO3 ABG O2 Saturation ABG Base Excess ABG Hemoglobin Oxyhemoglobin Sodium Potassium Chloride Carbon Dioxide BUN Creatinine Glucose POC Glucose 119 H 119 H Lactic Acid Calcium Phosphorus Magnesium AST ALT Alkaline Phosphatase Lactate Dehydrogenase Troponin T C-Reactive Protein NT-Pro-B Natriuret Pep Total Protein Albumin LDL Cholesterol Direct Vitamin B12 Fluid Glucose Fluid Total Protein Vancomycin Trough Crossmatch See Detail 12/13/21 12/13/21 12/13/21 00:52 04:00 04:00 WBC RBC 2.73 L Hgb 7.4 L Hct 22.8 L MCV MCH 27 L MCHC RDW 20.5 H Plt Count Seg Neuts % (Manual) Lymphocytes % (Manual) Seg Neutrophils # Man Lymphocytes # (Manual) Monocytes # (Manual) PT INR D-Dimer ABG pH ABG pO2 ABG HCO3 ABG O2 Saturation ABG Base Excess ABG Hemoglobin Oxyhemoglobin Sodium 134 L Potassium Chloride 96.7 L Carbon Dioxide BUN 23 H Creatinine 0.5 L Glucose 131 H POC Glucose 131 H Lactic Acid Calcium 8.1 L Phosphorus Magnesium AST ALT Alkaline Phosphatase Lactate Dehydrogenase Troponin T C-Reactive Protein NT-Pro-B Natriuret Pep Total Protein Albumin LDL Cholesterol Direct Vitamin B12 Fluid Glucose Fluid Total Protein Vancomycin Trough Crossmatch 12/13/21 12/13/21 12/13/21 05:23 12:11 17:18 WBC RBC Hgb Hct MCV MCH MCHC RDW Plt Count Seg Neuts % (Manual) Lymphocytes % (Manual) Seg Neutrophils # Man Lymphocytes # (Manual) Monocytes # (Manual) PT INR D-Dimer ABG pH ABG pO2 ABG HCO3 ABG O2 Saturation ABG Base Excess ABG Hemoglobin Oxyhemoglobin Sodium Potassium Chloride Carbon Dioxide BUN Creatinine Glucose POC Glucose 121 H 143 H 148 H Lactic Acid Calcium Phosphorus Magnesium AST ALT Alkaline Phosphatase Lactate Dehydrogenase Troponin T C-Reactive Protein NT-Pro-B Natriuret Pep Total Protein Albumin LDL Cholesterol Direct Vitamin B12 Fluid Glucose Fluid Total Protein Vancomycin Trough Crossmatch 12/14/21 12/14/21 12/14/21 00:54 04:20 04:20 WBC RBC 2.39 L Hgb 6.5 L Hct 20.3 L MCV MCH 27 L MCHC RDW 20.3 H Plt Count Seg Neuts % (Manual) Lymphocytes % (Manual) Seg Neutrophils # Man Lymphocytes # (Manual) Monocytes # (Manual) PT INR D-Dimer ABG pH ABG pO2 ABG HCO3 ABG O2 Saturation ABG Base Excess ABG Hemoglobin Oxyhemoglobin Sodium 130 L Potassium Chloride 93.5 L Carbon Dioxide BUN 25 H Creatinine Glucose 123 H POC Glucose 123 H Lactic Acid Calcium 8.0 L Phosphorus Magnesium AST ALT Alkaline Phosphatase Lactate Dehydrogenase Troponin T C-Reactive Protein NT-Pro-B Natriuret Pep Total Protein Albumin LDL Cholesterol Direct Vitamin B12 Fluid Glucose Fluid Total Protein Vancomycin Trough Crossmatch 12/14/21 12/14/21 12/14/21 05:06 08:17 10:30 WBC RBC Hgb Hct MCV MCH MCHC RDW Plt Count Seg Neuts % (Manual) Lymphocytes % (Manual) Seg Neutrophils # Man Lymphocytes # (Manual) Monocytes # (Manual) PT INR D-Dimer ABG pH ABG pO2 ABG HCO3 ABG O2 Saturation ABG Base Excess ABG Hemoglobin Oxyhemoglobin Sodium Potassium Chloride Carbon Dioxide BUN Creatinine Glucose POC Glucose 131 H 119 H Lactic Acid Calcium Phosphorus Magnesium AST ALT Alkaline Phosphatase Lactate Dehydrogenase Troponin T C-Reactive Protein NT-Pro-B Natriuret Pep Total Protein Albumin LDL Cholesterol Direct Vitamin B12 Fluid Glucose Fluid Total Protein Vancomycin Trough Crossmatch See Detail 12/14/21 12/14/21 12/14/21 12:15 16:37 23:27 WBC RBC Hgb Hct MCV MCH MCHC RDW Plt Count Seg Neuts % (Manual) Lymphocytes % (Manual) Seg Neutrophils # Man Lymphocytes # (Manual) Monocytes # (Manual) PT INR D-Dimer ABG pH ABG pO2 ABG HCO3 ABG O2 Saturation ABG Base Excess ABG Hemoglobin Oxyhemoglobin Sodium Potassium Chloride Carbon Dioxide BUN Creatinine Glucose POC Glucose 147 H 141 H 130 H Lactic Acid Calcium Phosphorus Magnesium AST ALT Alkaline Phosphatase Lactate Dehydrogenase Troponin T C-Reactive Protein NT-Pro-B Natriuret Pep Total Protein Albumin LDL Cholesterol Direct Vitamin B12 Fluid Glucose Fluid Total Protein Vancomycin Trough Crossmatch 12/15/21 12/15/21 12/15/21 05:00 07:00 07:00 WBC 12.3 H RBC 3.27 L Hgb 8.8 L Hct 27.5 L D MCV MCH 27 L MCHC RDW 19.0 H Plt Count Seg Neuts % (Manual) Lymphocytes % (Manual) Seg Neutrophils # Man Lymphocytes # (Manual) Monocytes # (Manual) PT INR D-Dimer ABG pH ABG pO2 ABG HCO3 ABG O2 Saturation ABG Base Excess ABG Hemoglobin Oxyhemoglobin Sodium 134 L Potassium Chloride 95.7 L Carbon Dioxide BUN 28 H Creatinine Glucose 129 H POC Glucose 129 H Lactic Acid Calcium 8.2 L Phosphorus Magnesium AST ALT Alkaline Phosphatase Lactate Dehydrogenase Troponin T C-Reactive Protein NT-Pro-B Natriuret Pep Total Protein Albumin LDL Cholesterol Direct Vitamin B12 Fluid Glucose Fluid Total Protein Vancomycin Trough Crossmatch 12/15/21 12/15/21 12/15/21 11:18 16:00 23:39 WBC RBC Hgb Hct MCV MCH MCHC RDW Plt Count Seg Neuts % (Manual) Lymphocytes % (Manual) Seg Neutrophils # Man Lymphocytes # (Manual) Monocytes # (Manual) PT INR D-Dimer ABG pH ABG pO2 ABG HCO3 ABG O2 Saturation ABG Base Excess ABG Hemoglobin Oxyhemoglobin Sodium Potassium Chloride Carbon Dioxide BUN Creatinine Glucose POC Glucose 139 H 137 H 146 H Lactic Acid Calcium Phosphorus Magnesium AST ALT Alkaline Phosphatase Lactate Dehydrogenase Troponin T C-Reactive Protein NT-Pro-B Natriuret Pep Total Protein Albumin LDL Cholesterol Direct Vitamin B12 Fluid Glucose Fluid Total Protein Vancomycin Trough Crossmatch 12/16/21 12/16/21 12/16/21 05:24 10:21 10:21 WBC 15.3 H RBC 3.24 L Hgb 8.9 L Hct 27.7 L MCV MCH MCHC RDW 19.0 H Plt Count Seg Neuts % (Manual) Lymphocytes % (Manual) Seg Neutrophils # Man Lymphocytes # (Manual) Monocytes # (Manual) PT INR D-Dimer ABG pH ABG pO2 ABG HCO3 ABG O2 Saturation ABG Base Excess ABG Hemoglobin Oxyhemoglobin Sodium 131 L Potassium 3.5 L Chloride 92.7 L Carbon Dioxide BUN 36 H Creatinine Glucose 160 H POC Glucose 121 H Lactic Acid Calcium Phosphorus Magnesium 1.60 L AST ALT Alkaline Phosphatase Lactate Dehydrogenase Troponin T C-Reactive Protein NT-Pro-B Natriuret Pep Total Protein Albumin LDL Cholesterol Direct Vitamin B12 Fluid Glucose Fluid Total Protein Vancomycin Trough Crossmatch 12/16/21 12/16/21 12/16/21 11:21 18:28 20:52 WBC RBC Hgb Hct MCV MCH MCHC RDW Plt Count Seg Neuts % (Manual) Lymphocytes % (Manual) Seg Neutrophils # Man Lymphocytes # (Manual) Monocytes # (Manual) PT INR D-Dimer ABG pH 7.479 H ABG pO2 79.3 L ABG HCO3 27.3 H ABG O2 Saturation ABG Base Excess 3.6 H ABG Hemoglobin 9.1 L Oxyhemoglobin 94.9 L Sodium Potassium Chloride Carbon Dioxide BUN Creatinine Glucose POC Glucose 153 H 132 H Lactic Acid Calcium Phosphorus Magnesium AST ALT Alkaline Phosphatase Lactate Dehydrogenase Troponin T C-Reactive Protein NT-Pro-B Natriuret Pep Total Protein Albumin LDL Cholesterol Direct Vitamin B12 Fluid Glucose Fluid Total Protein Vancomycin Trough Crossmatch 12/16/21 12/17/21 12/17/21 23:30 04:25 04:25 WBC 12.3 H RBC 2.16 L Hgb 6.0 L Hct 18.1 L* D MCV MCH MCHC RDW 19.4 H Plt Count Seg Neuts % (Manual) Lymphocytes % (Manual) Seg Neutrophils # Man Lymphocytes # (Manual) Monocytes # (Manual) PT INR D-Dimer ABG pH ABG pO2 ABG HCO3 ABG O2 Saturation ABG Base Excess ABG Hemoglobin Oxyhemoglobin Sodium 132 L Potassium 3.2 L Chloride 112.0 H Carbon Dioxide BUN 32 H Creatinine Glucose 122 H POC Glucose 137 H Lactic Acid Calcium 6.8 L D Phosphorus Magnesium AST ALT Alkaline Phosphatase Lactate Dehydrogenase Troponin T C-Reactive Protein NT-Pro-B Natriuret Pep Total Protein Albumin LDL Cholesterol Direct Vitamin B12 Fluid Glucose Fluid Total Protein Vancomycin Trough Crossmatch 12/17/21 12/17/21 12/17/21 05:30 11:49 14:45 WBC RBC Hgb 9.7 L D Hct MCV MCH MCHC RDW Plt Count Seg Neuts % (Manual) Lymphocytes % (Manual) Seg Neutrophils # Man Lymphocytes # (Manual) Monocytes # (Manual) PT INR D-Dimer ABG pH ABG pO2 ABG HCO3 ABG O2 Saturation ABG Base Excess ABG Hemoglobin Oxyhemoglobin Sodium Potassium Chloride Carbon Dioxide BUN Creatinine Glucose POC Glucose 137 H 143 H Lactic Acid Calcium Phosphorus Magnesium AST ALT Alkaline Phosphatase Lactate Dehydrogenase Troponin T C-Reactive Protein NT-Pro-B Natriuret Pep Total Protein Albumin LDL Cholesterol Direct Vitamin B12 Fluid Glucose Fluid Total Protein Vancomycin Trough Crossmatch 12/17/21 12/18/21 12/18/21 17:01 05:04 05:04 WBC 13.8 H RBC 3.44 L Hgb 9.9 L Hct 28.8 L MCV MCH MCHC RDW 18.1 H Plt Count Seg Neuts % (Manual) Lymphocytes % (Manual) Seg Neutrophils # Man Lymphocytes # (Manual) Monocytes # (Manual) PT INR D-Dimer ABG pH ABG pO2 ABG HCO3 ABG O2 Saturation ABG Base Excess ABG Hemoglobin Oxyhemoglobin Sodium 132 L Potassium Chloride 97.4 L Carbon Dioxide BUN 38 H Creatinine Glucose 134 H POC Glucose 132 H Lactic Acid Calcium Phosphorus Magnesium AST ALT Alkaline Phosphatase Lactate Dehydrogenase Troponin T C-Reactive Protein NT-Pro-B Natriuret Pep Total Protein Albumin LDL Cholesterol Direct Vitamin B12 Fluid Glucose Fluid Total Protein Vancomycin Trough Crossmatch 12/18/21 12/18/21 12/18/21 05:28 10:57 16:27 WBC RBC Hgb Hct MCV MCH MCHC RDW Plt Count Seg Neuts % (Manual) Lymphocytes % (Manual) Seg Neutrophils # Man Lymphocytes # (Manual) Monocytes # (Manual) PT INR D-Dimer ABG pH ABG pO2 ABG HCO3 ABG O2 Saturation ABG Base Excess ABG Hemoglobin Oxyhemoglobin Sodium Potassium Chloride Carbon Dioxide BUN Creatinine Glucose POC Glucose 118 H 132 H 130 H Lactic Acid Calcium Phosphorus Magnesium AST ALT Alkaline Phosphatase Lactate Dehydrogenase Troponin T C-Reactive Protein NT-Pro-B Natriuret Pep Total Protein Albumin LDL Cholesterol Direct Vitamin B12 Fluid Glucose Fluid Total Protein Vancomycin Trough Crossmatch 12/19/21 12/19/21 12/19/21 00:02 04:41 04:41 WBC 16.0 H RBC 3.45 L Hgb 9.7 L Hct 29.1 L MCV MCH MCHC RDW 17.8 H Plt Count Seg Neuts % (Manual) Lymphocytes % (Manual) Seg Neutrophils # Man Lymphocytes # (Manual) Monocytes # (Manual) PT INR D-Dimer ABG pH ABG pO2 ABG HCO3 ABG O2 Saturation ABG Base Excess ABG Hemoglobin Oxyhemoglobin Sodium 133 L Potassium Chloride 97.9 L Carbon Dioxide BUN 36 H Creatinine 0.5 L Glucose 126 H POC Glucose 127 H Lactic Acid Calcium 8.3 L Phosphorus Magnesium AST ALT Alkaline Phosphatase Lactate Dehydrogenase Troponin T C-Reactive Protein NT-Pro-B Natriuret Pep Total Protein Albumin LDL Cholesterol Direct Vitamin B12 Fluid Glucose Fluid Total Protein Vancomycin Trough Crossmatch 12/19/21 12/19/21 12/19/21 05:26 12:20 16:43 WBC RBC Hgb Hct MCV MCH MCHC RDW Plt Count Seg Neuts % (Manual) Lymphocytes % (Manual) Seg Neutrophils # Man Lymphocytes # (Manual) Monocytes # (Manual) PT INR D-Dimer ABG pH ABG pO2 ABG HCO3 ABG O2 Saturation ABG Base Excess ABG Hemoglobin Oxyhemoglobin Sodium Potassium Chloride Carbon Dioxide BUN Creatinine Glucose POC Glucose 119 H 145 H 126 H Lactic Acid Calcium Phosphorus Magnesium AST ALT Alkaline Phosphatase Lactate Dehydrogenase Troponin T C-Reactive Protein NT-Pro-B Natriuret Pep Total Protein Albumin LDL Cholesterol Direct Vitamin B12 Fluid Glucose Fluid Total Protein Vancomycin Trough Crossmatch 12/19/21 12/20/21 12/20/21 23:30 04:54 04:54 WBC 12.3 H RBC 3.54 L Hgb 10.0 L Hct 29.5 L MCV MCH MCHC RDW 17.8 H Plt Count Seg Neuts % (Manual) 88.0 H Lymphocytes % (Manual) 6.0 L Seg Neutrophils # Man 10.8 H Lymphocytes # (Manual) 0.7 L Monocytes # (Manual) PT INR D-Dimer ABG pH ABG pO2 ABG HCO3 ABG O2 Saturation ABG Base Excess ABG Hemoglobin Oxyhemoglobin Sodium 131 L Potassium Chloride 96.2 L Carbon Dioxide BUN 36 H Creatinine 0.5 L Glucose 130 H POC Glucose 117 H Lactic Acid Calcium Phosphorus Magnesium AST ALT Alkaline Phosphatase Lactate Dehydrogenase Troponin T C-Reactive Protein NT-Pro-B Natriuret Pep Total Protein Albumin LDL Cholesterol Direct Vitamin B12 Fluid Glucose Fluid Total Protein Vancomycin Trough Crossmatch 12/20/21 12/20/21 12/20/21 05:20 11:51 17:30 WBC RBC Hgb Hct MCV MCH MCHC RDW Plt Count Seg Neuts % (Manual) Lymphocytes % (Manual) Seg Neutrophils # Man Lymphocytes # (Manual) Monocytes # (Manual) PT INR D-Dimer ABG pH ABG pO2 ABG HCO3 ABG O2 Saturation ABG Base Excess ABG Hemoglobin Oxyhemoglobin Sodium Potassium Chloride Carbon Dioxide BUN Creatinine Glucose POC Glucose 126 H 119 H 127 H Lactic Acid Calcium Phosphorus Magnesium AST ALT Alkaline Phosphatase Lactate Dehydrogenase Troponin T C-Reactive Protein NT-Pro-B Natriuret Pep Total Protein Albumin LDL Cholesterol Direct Vitamin B12 Fluid Glucose Fluid Total Protein Vancomycin Trough Crossmatch 12/21/21 12/21/21 12/21/21 00:45 04:21 04:21 WBC RBC 3.47 L Hgb 9.4 L Hct 29.2 L MCV MCH 27 L MCHC RDW 18.1 H Plt Count Seg Neuts % (Manual) Lymphocytes % (Manual) Seg Neutrophils # Man Lymphocytes # (Manual) Monocytes # (Manual) PT INR D-Dimer ABG pH ABG pO2 ABG HCO3 ABG O2 Saturation ABG Base Excess ABG Hemoglobin Oxyhemoglobin Sodium 134 L Potassium Chloride Carbon Dioxide BUN 35 H Creatinine 0.5 L Glucose 122 H POC Glucose 125 H Lactic Acid Calcium 8.2 L Phosphorus Magnesium AST ALT Alkaline Phosphatase Lactate Dehydrogenase Troponin T C-Reactive Protein NT-Pro-B Natriuret Pep Total Protein Albumin LDL Cholesterol Direct Vitamin B12 Fluid Glucose Fluid Total Protein Vancomycin Trough Crossmatch 12/21/21 12/21/21 12/21/21 05:38 11:29 16:16 WBC RBC Hgb Hct MCV MCH MCHC RDW Plt Count Seg Neuts % (Manual) Lymphocytes % (Manual) Seg Neutrophils # Man Lymphocytes # (Manual) Monocytes # (Manual) PT INR D-Dimer ABG pH ABG pO2 ABG HCO3 ABG O2 Saturation ABG Base Excess ABG Hemoglobin Oxyhemoglobin Sodium Potassium Chloride Carbon Dioxide BUN Creatinine Glucose POC Glucose 127 H 121 H 113 H Lactic Acid Calcium Phosphorus Magnesium AST ALT Alkaline Phosphatase Lactate Dehydrogenase Troponin T C-Reactive Protein NT-Pro-B Natriuret Pep Total Protein Albumin LDL Cholesterol Direct Vitamin B12 Fluid Glucose Fluid Total Protein Vancomycin Trough Crossmatch 12/22/21 12/22/21 12/23/21 04:58 04:58 06:40 WBC 11.5 H RBC 3.43 L Hgb 9.8 L Hct 28.7 L MCV MCH MCHC RDW 18.5 H 17.9 H Plt Count Seg Neuts % (Manual) Lymphocytes % (Manual) Seg Neutrophils # Man Lymphocytes # (Manual) Monocytes # (Manual) PT INR D-Dimer ABG pH ABG pO2 ABG HCO3 ABG O2 Saturation ABG Base Excess ABG Hemoglobin Oxyhemoglobin Sodium 130 L Potassium Chloride 97.8 L Carbon Dioxide BUN 31 H Creatinine 0.5 L Glucose 122 H POC Glucose Lactic Acid Calcium 7.9 L Phosphorus Magnesium AST ALT Alkaline Phosphatase Lactate Dehydrogenase Troponin T C-Reactive Protein NT-Pro-B Natriuret Pep Total Protein Albumin LDL Cholesterol Direct Vitamin B12 Fluid Glucose Fluid Total Protein Vancomycin Trough Crossmatch 12/23/21 12/23/21 12/24/21 06:40 23:25 04:24 WBC 11.7 H RBC Hgb 9.8 L Hct MCV MCH 26 L MCHC RDW 18.1 H Plt Count Seg Neuts % (Manual) Lymphocytes % (Manual) Seg Neutrophils # Man Lymphocytes # (Manual) Monocytes # (Manual) PT INR D-Dimer ABG pH ABG pO2 ABG HCO3 ABG O2 Saturation ABG Base Excess ABG Hemoglobin Oxyhemoglobin Sodium 136 L Potassium Chloride Carbon Dioxide BUN 27 H Creatinine 0.4 L Glucose 107 H POC Glucose 110 H Lactic Acid Calcium 8.1 L Phosphorus Magnesium AST ALT Alkaline Phosphatase Lactate Dehydrogenase Troponin T C-Reactive Protein NT-Pro-B Natriuret Pep Total Protein Albumin LDL Cholesterol Direct Vitamin B12 Fluid Glucose Fluid Total Protein Vancomycin Trough Crossmatch 12/24/21 12/24/21 12/24/21 04:24 11:08 15:45 WBC RBC Hgb Hct MCV MCH MCHC RDW Plt Count Seg Neuts % (Manual) Lymphocytes % (Manual) Seg Neutrophils # Man Lymphocytes # (Manual) Monocytes # (Manual) PT INR D-Dimer ABG pH ABG pO2 ABG HCO3 ABG O2 Saturation ABG Base Excess ABG Hemoglobin Oxyhemoglobin Sodium 132 L Potassium Chloride Carbon Dioxide BUN 27 H Creatinine 0.3 L Glucose 108 H POC Glucose 116 H 107 H Lactic Acid Calcium Phosphorus Magnesium AST ALT Alkaline Phosphatase Lactate Dehydrogenase Troponin T C-Reactive Protein NT-Pro-B Natriuret Pep Total Protein Albumin LDL Cholesterol Direct Vitamin B12 Fluid Glucose Fluid Total Protein Vancomycin Trough Crossmatch 12/24/21 12/25/21 12/25/21 23:43 05:29 11:48 WBC RBC Hgb Hct MCV MCH MCHC RDW Plt Count Seg Neuts % (Manual) Lymphocytes % (Manual) Seg Neutrophils # Man Lymphocytes # (Manual) Monocytes # (Manual) PT INR D-Dimer ABG pH ABG pO2 ABG HCO3 ABG O2 Saturation ABG Base Excess ABG Hemoglobin Oxyhemoglobin Sodium Potassium Chloride Carbon Dioxide BUN Creatinine Glucose POC Glucose 123 H 107 H 119 H Lactic Acid Calcium Phosphorus Magnesium AST ALT Alkaline Phosphatase Lactate Dehydrogenase Troponin T C-Reactive Protein NT-Pro-B Natriuret Pep Total Protein Albumin LDL Cholesterol Direct Vitamin B12 Fluid Glucose Fluid Total Protein Vancomycin Trough Crossmatch 12/26/21 12/26/21 12/26/21 00:06 05:56 07:51 WBC 11.4 H RBC 3.40 L Hgb 9.3 L Hct 28.3 L MCV MCH 27 L MCHC RDW 18.2 H Plt Count Seg Neuts % (Manual) Lymphocytes % (Manual) Seg Neutrophils # Man Lymphocytes # (Manual) Monocytes # (Manual) PT INR D-Dimer ABG pH ABG pO2 ABG HCO3 ABG O2 Saturation ABG Base Excess ABG Hemoglobin Oxyhemoglobin Sodium Potassium Chloride Carbon Dioxide BUN Creatinine Glucose POC Glucose 133 H 107 H Lactic Acid Calcium Phosphorus Magnesium AST ALT Alkaline Phosphatase Lactate Dehydrogenase Troponin T C-Reactive Protein NT-Pro-B Natriuret Pep Total Protein Albumin LDL Cholesterol Direct Vitamin B12 Fluid Glucose Fluid Total Protein Vancomycin Trough Crossmatch 12/26/21 12/26/21 12/26/21 07:51 11:43 17:06 WBC RBC Hgb Hct MCV MCH MCHC RDW Plt Count Seg Neuts % (Manual) Lymphocytes % (Manual) Seg Neutrophils # Man Lymphocytes # (Manual) Monocytes # (Manual) PT INR D-Dimer ABG pH ABG pO2 ABG HCO3 ABG O2 Saturation ABG Base Excess ABG Hemoglobin Oxyhemoglobin Sodium 136 L Potassium Chloride Carbon Dioxide BUN 25 H Creatinine 0.3 L Glucose 131 H POC Glucose 119 H 128 H Lactic Acid Calcium Phosphorus Magnesium AST ALT Alkaline Phosphatase Lactate Dehydrogenase Troponin T C-Reactive Protein NT-Pro-B Natriuret Pep Total Protein Albumin LDL Cholesterol Direct Vitamin B12 Fluid Glucose Fluid Total Protein Vancomycin Trough Crossmatch 12/28/21 12/28/21 12/29/21 09:05 09:05 04:40 WBC RBC 3.19 L Hgb 8.9 L Hct 26.4 L MCV MCH 27 L MCHC RDW 18.4 H 17.9 H Plt Count Seg Neuts % (Manual) Lymphocytes % (Manual) Seg Neutrophils # Man Lymphocytes # (Manual) Monocytes # (Manual) PT INR D-Dimer ABG pH ABG pO2 ABG HCO3 ABG O2 Saturation ABG Base Excess ABG Hemoglobin Oxyhemoglobin Sodium 135 L Potassium Chloride 97.8 L Carbon Dioxide BUN 18 H Creatinine 0.3 L Glucose POC Glucose Lactic Acid Calcium Phosphorus Magnesium AST ALT Alkaline Phosphatase Lactate Dehydrogenase Troponin T C-Reactive Protein NT-Pro-B Natriuret Pep Total Protein Albumin LDL Cholesterol Direct Vitamin B12 Fluid Glucose Fluid Total Protein Vancomycin Trough Crossmatch 12/29/21 12/29/21 12/30/21 04:40 12:47 04:05 WBC RBC 3.29 L Hgb 8.7 L Hct 27.6 L MCV MCH 27 L MCHC RDW 17.6 H Plt Count Seg Neuts % (Manual) Lymphocytes % (Manual) Seg Neutrophils # Man Lymphocytes # (Manual) Monocytes # (Manual) PT INR D-Dimer ABG pH ABG pO2 ABG HCO3 ABG O2 Saturation ABG Base Excess ABG Hemoglobin Oxyhemoglobin Sodium 136 L Potassium Chloride Carbon Dioxide BUN Creatinine 0.3 L Glucose POC Glucose 67 L Lactic Acid Calcium 8.3 L Phosphorus Magnesium AST ALT Alkaline Phosphatase Lactate Dehydrogenase Troponin T C-Reactive Protein NT-Pro-B Natriuret Pep Total Protein Albumin LDL Cholesterol Direct Vitamin B12 Fluid Glucose Fluid Total Protein Vancomycin Trough Crossmatch 12/30/21 12/31/21 12/31/21 04:05 00:07 04:00 WBC RBC 3.05 L Hgb 8.5 L Hct 25.5 L MCV MCH MCHC RDW 18.2 H Plt Count Seg Neuts % (Manual) Lymphocytes % (Manual) Seg Neutrophils # Man Lymphocytes # (Manual) Monocytes # (Manual) PT INR D-Dimer ABG pH ABG pO2 ABG HCO3 ABG O2 Saturation ABG Base Excess ABG Hemoglobin Oxyhemoglobin Sodium 136 L Potassium 3.5 L Chloride Carbon Dioxide BUN Creatinine 0.4 L Glucose POC Glucose 139 H Lactic Acid Calcium Phosphorus Magnesium 1.50 L AST ALT Alkaline Phosphatase Lactate Dehydrogenase Troponin T C-Reactive Protein NT-Pro-B Natriuret Pep Total Protein Albumin LDL Cholesterol Direct Vitamin B12 Fluid Glucose Fluid Total Protein Vancomycin Trough Crossmatch 12/31/21 12/31/21 12/31/21 04:00 04:52 11:23 WBC RBC Hgb Hct MCV MCH MCHC RDW Plt Count Seg Neuts % (Manual) Lymphocytes % (Manual) Seg Neutrophils # Man Lymphocytes # (Manual) Monocytes # (Manual) PT INR D-Dimer ABG pH ABG pO2 ABG HCO3 ABG O2 Saturation ABG Base Excess ABG Hemoglobin Oxyhemoglobin Sodium Potassium Chloride Carbon Dioxide BUN 19 H Creatinine 0.4 L Glucose 116 H POC Glucose 121 H 116 H Lactic Acid Calcium Phosphorus Magnesium AST ALT Alkaline Phosphatase Lactate Dehydrogenase Troponin T C-Reactive Protein NT-Pro-B Natriuret Pep Total Protein Albumin LDL Cholesterol Direct Vitamin B12 Fluid Glucose Fluid Total Protein Vancomycin Trough Crossmatch 12/31/21 01/01/22 01/01/22 17:42 04:31 04:31 WBC RBC 2.83 L Hgb 7.7 L Hct 23.2 L MCV MCH 27 L MCHC RDW 18.3 H Plt Count Seg Neuts % (Manual) Lymphocytes % (Manual) Seg Neutrophils # Man Lymphocytes # (Manual) Monocytes # (Manual) PT INR D-Dimer ABG pH ABG pO2 ABG HCO3 ABG O2 Saturation ABG Base Excess ABG Hemoglobin Oxyhemoglobin Sodium 135 L Potassium Chloride 97.7 L Carbon Dioxide BUN 21 H Creatinine 0.5 L Glucose 127 H POC Glucose 107 H Lactic Acid Calcium 8.0 L Phosphorus Magnesium AST ALT Alkaline Phosphatase Lactate Dehydrogenase Troponin T C-Reactive Protein NT-Pro-B Natriuret Pep Total Protein Albumin LDL Cholesterol Direct Vitamin B12 Fluid Glucose Fluid Total Protein Vancomycin Trough Crossmatch 01/01/22 01/01/22 01/01/22 05:24 11:25 18:11 WBC RBC Hgb Hct MCV MCH MCHC RDW Plt Count Seg Neuts % (Manual) Lymphocytes % (Manual) Seg Neutrophils # Man Lymphocytes # (Manual) Monocytes # (Manual) PT INR D-Dimer ABG pH ABG pO2 ABG HCO3 ABG O2 Saturation ABG Base Excess ABG Hemoglobin Oxyhemoglobin Sodium Potassium Chloride Carbon Dioxide BUN Creatinine Glucose POC Glucose 124 H 140 H 144 H Lactic Acid Calcium Phosphorus Magnesium AST ALT Alkaline Phosphatase Lactate Dehydrogenase Troponin T C-Reactive Protein NT-Pro-B Natriuret Pep Total Protein Albumin LDL Cholesterol Direct Vitamin B12 Fluid Glucose Fluid Total Protein Vancomycin Trough Crossmatch 01/01/22 01/02/22 01/02/22 23:26 04:01 04:01 WBC RBC 2.57 L Hgb 7.1 L Hct 21.5 L MCV MCH MCHC RDW 18.1 H Plt Count Seg Neuts % (Manual) Lymphocytes % (Manual) Seg Neutrophils # Man Lymphocytes # (Manual) Monocytes # (Manual) PT INR D-Dimer ABG pH ABG pO2 ABG HCO3 ABG O2 Saturation ABG Base Excess ABG Hemoglobin Oxyhemoglobin Sodium 131 L Potassium 3.5 L Chloride 94.8 L Carbon Dioxide BUN 27 H Creatinine Glucose 121 H POC Glucose 121 H Lactic Acid Calcium Phosphorus Magnesium AST ALT Alkaline Phosphatase Lactate Dehydrogenase Troponin T C-Reactive Protein NT-Pro-B Natriuret Pep Total Protein Albumin LDL Cholesterol Direct Vitamin B12 Fluid Glucose Fluid Total Protein Vancomycin Trough Crossmatch 01/02/22 01/02/22 01/02/22 05:30 11:10 16:08 WBC RBC Hgb Hct MCV MCH MCHC RDW Plt Count Seg Neuts % (Manual) Lymphocytes % (Manual) Seg Neutrophils # Man Lymphocytes # (Manual) Monocytes # (Manual) PT INR D-Dimer ABG pH ABG pO2 ABG HCO3 ABG O2 Saturation ABG Base Excess ABG Hemoglobin Oxyhemoglobin Sodium Potassium Chloride Carbon Dioxide BUN Creatinine Glucose POC Glucose 124 H 117 H 130 H Lactic Acid Calcium Phosphorus Magnesium AST ALT Alkaline Phosphatase Lactate Dehydrogenase Troponin T C-Reactive Protein NT-Pro-B Natriuret Pep Total Protein Albumin LDL Cholesterol Direct Vitamin B12 Fluid Glucose Fluid Total Protein Vancomycin Trough Crossmatch 01/02/22 01/02/22 01/03/22 17:30 23:26 04:53 WBC RBC 2.82 L Hgb 7.7 L Hct 23.4 L MCV MCH 27 L MCHC RDW 18.0 H Plt Count Seg Neuts % (Manual) Lymphocytes % (Manual) Seg Neutrophils # Man Lymphocytes # (Manual) Monocytes # (Manual) PT INR D-Dimer ABG pH ABG pO2 ABG HCO3 ABG O2 Saturation ABG Base Excess ABG Hemoglobin Oxyhemoglobin Sodium Potassium Chloride Carbon Dioxide BUN Creatinine Glucose POC Glucose 114 H Lactic Acid Calcium Phosphorus Magnesium AST ALT Alkaline Phosphatase Lactate Dehydrogenase Troponin T C-Reactive Protein NT-Pro-B Natriuret Pep Total Protein Albumin LDL Cholesterol Direct Vitamin B12 Fluid Glucose Fluid Total Protein Vancomycin Trough 22.8 H Crossmatch 01/03/22 01/03/22 01/03/22 04:53 06:23 17:35 WBC RBC Hgb Hct MCV MCH MCHC RDW Plt Count Seg Neuts % (Manual) Lymphocytes % (Manual) Seg Neutrophils # Man Lymphocytes # (Manual) Monocytes # (Manual) PT INR D-Dimer ABG pH ABG pO2 ABG HCO3 ABG O2 Saturation ABG Base Excess ABG Hemoglobin Oxyhemoglobin Sodium 133 L Potassium Chloride 96.2 L Carbon Dioxide BUN 30 H Creatinine Glucose 107 H POC Glucose 122 H 107 H Lactic Acid Calcium Phosphorus Magnesium AST ALT Alkaline Phosphatase Lactate Dehydrogenase Troponin T C-Reactive Protein NT-Pro-B Natriuret Pep Total Protein Albumin LDL Cholesterol Direct Vitamin B12 Fluid Glucose Fluid Total Protein Vancomycin Trough Crossmatch 01/04/22 01/04/22 01/04/22 04:00 12:32 16:45 WBC RBC Hgb Hct MCV MCH MCHC RDW Plt Count Seg Neuts % (Manual) Lymphocytes % (Manual) Seg Neutrophils # Man Lymphocytes # (Manual) Monocytes # (Manual) PT INR D-Dimer ABG pH ABG pO2 ABG HCO3 ABG O2 Saturation ABG Base Excess ABG Hemoglobin Oxyhemoglobin Sodium 132 L Potassium Chloride 92.8 L Carbon Dioxide BUN 30 H Creatinine Glucose 115 H POC Glucose 111 H 111 H Lactic Acid Calcium Phosphorus Magnesium 1.60 L AST ALT Alkaline Phosphatase Lactate Dehydrogenase Troponin T C-Reactive Protein NT-Pro-B Natriuret Pep Total Protein Albumin LDL Cholesterol Direct Vitamin B12 Fluid Glucose Fluid Total Protein Vancomycin Trough Crossmatch 01/05/22 01/05/22 01/05/22 04:30 04:30 17:04 WBC RBC 3.11 L Hgb 8.4 L Hct 25.5 L MCV MCH 27 L MCHC RDW 17.6 H Plt Count Seg Neuts % (Manual) Lymphocytes % (Manual) Seg Neutrophils # Man Lymphocytes # (Manual) Monocytes # (Manual) PT INR D-Dimer ABG pH ABG pO2 ABG HCO3 ABG O2 Saturation ABG Base Excess ABG Hemoglobin Oxyhemoglobin Sodium 135 L Potassium Chloride 93.6 L Carbon Dioxide BUN 29 H Creatinine Glucose POC Glucose 67 L Lactic Acid Calcium Phosphorus Magnesium AST ALT Alkaline Phosphatase Lactate Dehydrogenase Troponin T C-Reactive Protein NT-Pro-B Natriuret Pep Total Protein Albumin LDL Cholesterol Direct Vitamin B12 Fluid Glucose Fluid Total Protein Vancomycin Trough Crossmatch 01/05/22 01/06/22 01/06/22 23:27 04:06 04:06 WBC RBC 2.89 L Hgb 7.7 L Hct 23.8 L MCV MCH 27 L MCHC RDW 18.0 H Plt Count Seg Neuts % (Manual) Lymphocytes % (Manual) Seg Neutrophils # Man Lymphocytes # (Manual) Monocytes # (Manual) PT 16.9 H INR 1.23 H D-Dimer ABG pH ABG pO2 ABG HCO3 ABG O2 Saturation ABG Base Excess ABG Hemoglobin Oxyhemoglobin Sodium Potassium Chloride Carbon Dioxide BUN Creatinine Glucose POC Glucose 110 H Lactic Acid Calcium Phosphorus Magnesium AST ALT Alkaline Phosphatase Lactate Dehydrogenase Troponin T C-Reactive Protein NT-Pro-B Natriuret Pep Total Protein Albumin LDL Cholesterol Direct Vitamin B12 Fluid Glucose Fluid Total Protein Vancomycin Trough Crossmatch 01/06/22 01/06/22 01/06/22 04:06 13:40 23:41 WBC RBC Hgb Hct MCV MCH MCHC RDW Plt Count Seg Neuts % (Manual) Lymphocytes % (Manual) Seg Neutrophils # Man Lymphocytes # (Manual) Monocytes # (Manual) PT INR D-Dimer ABG pH ABG pO2 ABG HCO3 ABG O2 Saturation ABG Base Excess ABG Hemoglobin Oxyhemoglobin Sodium 132 L Potassium Chloride 92.3 L Carbon Dioxide BUN 26 H Creatinine Glucose 111 H POC Glucose 120 H Lactic Acid Calcium Phosphorus Magnesium AST ALT Alkaline Phosphatase Lactate Dehydrogenase Troponin T C-Reactive Protein NT-Pro-B Natriuret Pep Total Protein Albumin LDL Cholesterol Direct Vitamin B12 Fluid Glucose 96 H Fluid Total Protein < 3.0 L Vancomycin Trough Crossmatch 01/07/22 01/07/22 01/07/22 05:20 11:30 17:00 WBC RBC Hgb Hct MCV MCH MCHC RDW Plt Count Seg Neuts % (Manual) Lymphocytes % (Manual) Seg Neutrophils # Man Lymphocytes # (Manual) Monocytes # (Manual) PT INR D-Dimer ABG pH ABG pO2 ABG HCO3 ABG O2 Saturation ABG Base Excess ABG Hemoglobin Oxyhemoglobin Sodium Potassium Chloride Carbon Dioxide BUN Creatinine Glucose POC Glucose 111 H 113 H 121 H Lactic Acid Calcium Phosphorus Magnesium AST ALT Alkaline Phosphatase Lactate Dehydrogenase Troponin T C-Reactive Protein NT-Pro-B Natriuret Pep Total Protein Albumin LDL Cholesterol Direct Vitamin B12 Fluid Glucose Fluid Total Protein Vancomycin Trough Crossmatch 01/07/22 01/08/22 01/08/22 23:41 11:26 16:23 WBC RBC Hgb Hct MCV MCH MCHC RDW Plt Count Seg Neuts % (Manual) Lymphocytes % (Manual) Seg Neutrophils # Man Lymphocytes # (Manual) Monocytes # (Manual) PT INR D-Dimer ABG pH ABG pO2 ABG HCO3 ABG O2 Saturation ABG Base Excess ABG Hemoglobin Oxyhemoglobin Sodium Potassium Chloride Carbon Dioxide BUN Creatinine Glucose POC Glucose 110 H 129 H 118 H Lactic Acid Calcium Phosphorus Magnesium AST ALT Alkaline Phosphatase Lactate Dehydrogenase Troponin T C-Reactive Protein NT-Pro-B Natriuret Pep Total Protein Albumin LDL Cholesterol Direct Vitamin B12 Fluid Glucose Fluid Total Protein Vancomycin Trough Crossmatch 01/09/22 01/10/22 01/10/22 18:13 00:27 04:00 WBC RBC Hgb Hct MCV MCH MCHC RDW Plt Count Seg Neuts % (Manual) Lymphocytes % (Manual) Seg Neutrophils # Man Lymphocytes # (Manual) Monocytes # (Manual) PT INR D-Dimer ABG pH ABG pO2 ABG HCO3 ABG O2 Saturation ABG Base Excess ABG Hemoglobin Oxyhemoglobin Sodium 133 L Potassium Chloride 92.6 L Carbon Dioxide 31 H BUN 29 H Creatinine 0.5 L Glucose 115 H POC Glucose 118 H 111 H Lactic Acid Calcium Phosphorus Magnesium AST ALT Alkaline Phosphatase Lactate Dehydrogenase Troponin T C-Reactive Protein NT-Pro-B Natriuret Pep Total Protein Albumin LDL Cholesterol Direct Vitamin B12 Fluid Glucose Fluid Total Protein Vancomycin Trough Crossmatch 01/10/22 01/11/22 01/11/22 05:47 05:10 11:14 WBC RBC Hgb Hct MCV MCH MCHC RDW Plt Count Seg Neuts % (Manual) Lymphocytes % (Manual) Seg Neutrophils # Man Lymphocytes # (Manual) Monocytes # (Manual) PT INR D-Dimer ABG pH ABG pO2 ABG HCO3 ABG O2 Saturation ABG Base Excess ABG Hemoglobin Oxyhemoglobin Sodium Potassium Chloride Carbon Dioxide BUN Creatinine Glucose POC Glucose 106 H 118 H 136 H Lactic Acid Calcium Phosphorus Magnesium AST ALT Alkaline Phosphatase Lactate Dehydrogenase Troponin T C-Reactive Protein NT-Pro-B Natriuret Pep Total Protein Albumin LDL Cholesterol Direct Vitamin B12 Fluid Glucose Fluid Total Protein Vancomycin Trough Crossmatch 01/11/22 01/11/22 01/12/22 17:14 23:52 05:39 WBC RBC Hgb Hct MCV MCH MCHC RDW Plt Count Seg Neuts % (Manual) Lymphocytes % (Manual) Seg Neutrophils # Man Lymphocytes # (Manual) Monocytes # (Manual) PT INR D-Dimer ABG pH ABG pO2 ABG HCO3 ABG O2 Saturation ABG Base Excess ABG Hemoglobin Oxyhemoglobin Sodium Potassium Chloride Carbon Dioxide BUN Creatinine Glucose POC Glucose 117 H 110 H 110 H Lactic Acid Calcium Phosphorus Magnesium AST ALT Alkaline Phosphatase Lactate Dehydrogenase Troponin T C-Reactive Protein NT-Pro-B Natriuret Pep Total Protein Albumin LDL Cholesterol Direct Vitamin B12 Fluid Glucose Fluid Total Protein Vancomycin Trough Crossmatch 01/13/22 01/13/22 01/14/22 11:15 17:21 05:33 WBC RBC Hgb Hct MCV MCH MCHC RDW Plt Count Seg Neuts % (Manual) Lymphocytes % (Manual) Seg Neutrophils # Man Lymphocytes # (Manual) Monocytes # (Manual) PT INR D-Dimer ABG pH ABG pO2 ABG HCO3 ABG O2 Saturation ABG Base Excess ABG Hemoglobin Oxyhemoglobin Sodium Potassium Chloride Carbon Dioxide BUN Creatinine Glucose POC Glucose 113 H 121 H 136 H Lactic Acid Calcium Phosphorus Magnesium AST ALT Alkaline Phosphatase Lactate Dehydrogenase Troponin T C-Reactive Protein NT-Pro-B Natriuret Pep Total Protein Albumin LDL Cholesterol Direct Vitamin B12 Fluid Glucose Fluid Total Protein Vancomycin Trough Crossmatch 01/14/22 01/15/22 01/15/22 11:28 00:13 05:24 WBC RBC Hgb Hct MCV MCH MCHC RDW Plt Count Seg Neuts % (Manual) Lymphocytes % (Manual) Seg Neutrophils # Man Lymphocytes # (Manual) Monocytes # (Manual) PT INR D-Dimer ABG pH ABG pO2 ABG HCO3 ABG O2 Saturation ABG Base Excess ABG Hemoglobin Oxyhemoglobin Sodium Potassium Chloride Carbon Dioxide BUN Creatinine Glucose POC Glucose 117 H 109 H 117 H Lactic Acid Calcium Phosphorus Magnesium AST ALT Alkaline Phosphatase Lactate Dehydrogenase Troponin T C-Reactive Protein NT-Pro-B Natriuret Pep Total Protein Albumin LDL Cholesterol Direct Vitamin B12 Fluid Glucose Fluid Total Protein Vancomycin Trough Crossmatch 01/15/22 01/15/22 01/15/22 11:38 14:36 17:05 WBC RBC 3.11 L Hgb 8.4 L Hct 25.7 L MCV MCH 27 L MCHC RDW 17.2 H Plt Count Seg Neuts % (Manual) 82.0 H Lymphocytes % (Manual) 11.0 L Seg Neutrophils # Man 8.8 H Lymphocytes # (Manual) Monocytes # (Manual) PT INR D-Dimer ABG pH ABG pO2 ABG HCO3 ABG O2 Saturation ABG Base Excess ABG Hemoglobin Oxyhemoglobin Sodium Potassium Chloride Carbon Dioxide BUN Creatinine Glucose POC Glucose 107 H 108 H Lactic Acid Calcium Phosphorus Magnesium AST ALT Alkaline Phosphatase Lactate Dehydrogenase Troponin T C-Reactive Protein NT-Pro-B Natriuret Pep Total Protein Albumin LDL Cholesterol Direct Vitamin B12 Fluid Glucose Fluid Total Protein Vancomycin Trough Crossmatch 01/15/22 01/15/22 01/15/22 21:07 Unknown Unknown WBC RBC 2.97 L Hgb 8.0 L Hct 24.3 L MCV MCH 27 L MCHC RDW 17.2 H Plt Count Seg Neuts % (Manual) Lymphocytes % (Manual) Seg Neutrophils # Man Lymphocytes # (Manual) Monocytes # (Manual) PT INR D-Dimer ABG pH ABG pO2 ABG HCO3 ABG O2 Saturation ABG Base Excess ABG Hemoglobin Oxyhemoglobin Sodium 131 L Potassium Chloride 93.1 L Carbon Dioxide BUN 27 H Creatinine Glucose 110 H POC Glucose Lactic Acid Calcium 8.3 L Phosphorus Magnesium AST ALT Alkaline Phosphatase Lactate Dehydrogenase Troponin T 0.088 H C-Reactive Protein NT-Pro-B Natriuret Pep Total Protein Albumin LDL Cholesterol Direct 44 L Vitamin B12 Fluid Glucose Fluid Total Protein Vancomycin Trough Crossmatch 01/15/22 01/16/22 01/16/22 Unknown 05:21 12:59 WBC RBC Hgb Hct MCV MCH MCHC RDW Plt Count Seg Neuts % (Manual) Lymphocytes % (Manual) Seg Neutrophils # Man Lymphocytes # (Manual) Monocytes # (Manual) PT INR D-Dimer ABG pH ABG pO2 ABG HCO3 ABG O2 Saturation ABG Base Excess ABG Hemoglobin Oxyhemoglobin Sodium 134 L 134 L Potassium 3.4 L Chloride 93.9 L 95.4 L Carbon Dioxide BUN 26 H 24 H Creatinine Glucose 168 H POC Glucose 159 H Lactic Acid Calcium 8.1 L Phosphorus Magnesium AST ALT Alkaline Phosphatase Lactate Dehydrogenase Troponin T 0.078 H C-Reactive Protein NT-Pro-B Natriuret Pep Total Protein Albumin LDL Cholesterol Direct Vitamin B12 Fluid Glucose Fluid Total Protein Vancomycin Trough Crossmatch 01/16/22 01/17/22 23:22 05:20 WBC RBC Hgb Hct MCV MCH MCHC RDW Plt Count Seg Neuts % (Manual) Lymphocytes % (Manual) Seg Neutrophils # Man Lymphocytes # (Manual) Monocytes # (Manual) PT INR D-Dimer ABG pH ABG pO2 ABG HCO3 ABG O2 Saturation ABG Base Excess ABG Hemoglobin Oxyhemoglobin Sodium Potassium Chloride Carbon Dioxide BUN Creatinine Glucose POC Glucose 113 H 111 H Lactic Acid Calcium Phosphorus Magnesium AST ALT Alkaline Phosphatase Lactate Dehydrogenase Troponin T C-Reactive Protein NT-Pro-B Natriuret Pep Total Protein Albumin LDL Cholesterol Direct Vitamin B12 Fluid Glucose Fluid Total Protein Vancomycin Trough Crossmatch Allied health notes reviewed: nursing
--- NOTE | 2022-01-17 12:32 | Progress Note ---
Assessment and Plan Assessment and plan: This is an 82-year-old female with DM, HTN , CHB s/p PPM, CAD s/p PCI and arthritis who presented to the emergency department on 11/04 for shortness of breath ongoing for the past 3 days, cough and according to family a fever of 102.2. Upon arrival of EMS patient was found to be tachypneic and hypoxic with SPO2 of 76% on room air which later improved to 88% on nonrebreather. Work-up in the emergency department included a CXR which showed bilateral interstitial pulmonary edema with bilateral pleural effusions and bibasilar opacities, leukocytosis and anemia with a hemoglobin of 6.1. Patient was admitted to the hospitalist service with acute anemia, acute hypoxic respiratory failure, bilateral pneumonia and COVID-19 PUI with consults to pulmonology, infectious disease and later cardiology. Patient was eventually intubated in the emergency department on 11/06. Hospital Course to date: 11/04/2021: Empiric therapy with iv levaquin/vancomycin. COVID PCR pending. Will consult ID. PCCM consulted, will follow recs. Hypotensive this AM, ordered bolus and fluids at 150 cc/hr. May require pressor support if bp does not improve. 11/05/2021: GBS on bcx +, currently on rocephin IV. Currently on bipap due to respiratory distress overnight. Worsening BL opacities on CXR. May be volume overload vs pneumonia. Unfortunately bp too low for lasix at this point. WIll continue levophed and bipap. Once able to tolerate, may do trial of albumin/lasix. Call attempt made to Niraj, no response. Will try again tomorrow to update. 11/06/2021: Decompensated overnight requiring intubation. CXR shows worsening interstitial infiltrates. Currenlty on dopamine, levophed, vasopressin. PICC line ordered. Advised RN to place gamble for I/O monitoring. Would benefit from diuresis but very volume overloaded. Prognosis guarded 11/08: Off sedation this am, remains unresponsive only grimace to pain. Hold all sedatives agents for now, patient is off pressors this am. Hypernatremia from today's lab- D5W X1bag, and low K repleted, repeat lab in the am. Severe constipation also noted from KUB, BR added. 11/09: Sudden SPO2 drop in the 60s this am. Patient was manually bagged and deep suctioned. Patient is currently stable on the vent, repeat CXR with no significant change. D/w CCM Mucomyst and brochodilator added. Patient mentation is unchanged, continue to hold off on sedative agents. Neurology consulted. 11/10: Acute DVT noted on bilateral lower extremity Doppler ultrasound therefore she was started on Lovenox treatment dose. Failed SBT. Hypernatremia and hyperchloremia noted, free water flush adjusted. 11/11: Patient noted to be febrile with increasing of the cytosis, UA/BC sent and CXR ordered. ID escalated antibiotics to cefepime. CXR demonstrated mucous plug, bedside bronchoscopy was performed and O ETT was changed over bougie from 6 cm to 7.5. Patient was noted to have a pneumothorax postprocedure and chest tube was placed. Family updated by [facility]. Free water flush increased and will add Jaswant supplementation. 11/12: Patient not noted to follow commands, hypernatremia worsen/persist, increasing free water flush, potassium and magnesium and phosphorus repleted. Hemoglobin noted to be 7./24.5 from 7.03/12 yesterday. We will continue to trend and monitor. Vent changes per [facility]. Repeat CXR showed no residual pneumothorax. Consider waterseal tomorrow. Given persistent leukocytosis antibiotics escalated to cefepime per ID. 11/13: Remains on cefepime and vancomycin, vent changes per [facility]. Anemia noted and given 1 unit PRBC. And beta-charleen held in setting of Levophed drip infusing. Remains on fentanyl drip. 11/14: Patient put on CPAP trial by [facility], will continue chest tube until after extubation. Will rest on assist control. CT brain was cancelled by attending radiologist and reordered. 11/15: Patient removed chest tube overnight. Will obtain cxr. remains on low dose levo. CTH completed with no acute findings. RT to place on CPAP. 11/16: Hypernatremia/hyperchloremia noted on the increase of day water flushes. Anemia noted and ordered PRBC. asked RT to place on cpap but not done yet 11/17: Patient remains on the vent, awake and following commands. H&H stable s/p 2units PRBCs. GI on consult, no intervention at this time. Will continue protonix gtt and serial H&H Q6hrs. Keep patient NPO for now, D5w added for hypernatremia and NPO status. Plan for IVC filter placement today by Vascular. 11/18: Patient is s/p IVC filter. H&H continue to trend down, hbg 6.1 this am, 1 unit of PRBCs ordered. Plan for possible EGD today by GI. Keep patient NPO, continue PPI drip and serial H&H Q6hrs. Electrolytes repleted, repeat lab in the am 11/19: S/p EGD- larger duodenal ulcer noted, see operative note. GI recommendations noted also noted. H&H stable this am. Keep patient on protonix gtt for now. Will keep patient NPO, continue IVF and serial H&H for now. Electrolytes repleted, repeat labs in the am 11/20: Very agitated and restless this am, fentanyl gtt resumed. Patient remains on protonix gtt, H&H remains stable. Will switch protonix gtt to IV BID, continue carafate and okay to resume meds at this time. Will F/u with GI to see if TF can be resumed. Gamble was reinserted overnight for retention. Electrolytes repleted, repeat in the am. Plan for possible PST today for possible extubation per CCM. 11/21: Patient is now on seroquel and patient's home buspar resumed. Patient more calm this morning, fentanyl gtt is off. H&H remains stable and patient is tolerating TF. Patient had a runs of Vtach/PVCs this am, BB added per Cardio. Continue daily PS and wean trial for possible extubation. 11/22: Back on fentanyl gtt overnight , RASS o to -1, following commands. Patient failed PST this am due to increased work of breathing and low SPO2, ABG pending. Patient is also with worsen pitting edema, lasix is still on hold. Will discuss with cardio and CCM to possibly resume lasix. 11/23: MARIA DEL CARMEN overnight. Patient failed PST again this am. Per CCM plan for possible trach and PEG, hold off on IV lasix for now. General surgery consulted and family is aware of possible Trach and PEG. 11/24: Trach/PEG pending this week, continue SBT/SAT as tolerated. No acute events reported overnight. 11/25: Patient was n.p.o. overnight and will remain n.p.o. tonight for trach/PEG tomorrow morning. She failed to support trial again. KUB obtained due to distended belly. 11/26: Patient scheduled for tracheostomy and PEG tube placement today, has been n.p.o. since midnight. No acute events reported overnight. [facility] ordered simethicone scheduled. 11/27: No acute events reported overnight, patient received trach/PEG yesterday. Has been on feedings since last night. Still awaiting LTAC placement. 11/28: Patient magnesium repleted, repeat a.m. labs, SBT 11/29: Patient complains of chest pain but ECG obtained which showed no acute findings, ordered troponin. Patient failed CPAP yesterday and was trialed again today. levophed was restarted but will aggressively wean 11/30: Patient failed SBT. Continue supportive care. Started gabapentin today 12/01: MARIA DEL CARMEN overnight. Continue daily PST. Case management to arrange possible placement 12/02: Report of dark stools overnight, patient is hemodynamically stable. H&H stable, patient is on PPI. Will continue to trend H&H. Continue daily PST as tolerated. Awaiting LTAC vs SNF placement. 12/03: Hypotensive overnight, requiring low dose pressors. S/p X3 days of gentle diurese. Will continue to monitor, wean off pressors as tolerated for MAP of 65. Patient Failed PST yesterday, case management to follow up with insurance for po ssible LTAC placement. Continue daily PST as tolerated. PT eval and treat ordered. 12/04: Increased agitation and anxiety overnight, remains on buspar and seroquel, trazadone added to promote rest. Patient is now working with PT, keep patient engage and awake during the day so she can rest at night. No BM for over 5 days, BR was adjusted. Patient did not tolerate PST again yesterday, continue daily PST as tolerated. Continue to titrate pressor for MAP above 65. Pending possible LTAC placement, case management to arrange. 12/05: Still not getting much rest overnight, will add melatonin for sleep. Continue to engage patient during the day and promote rest at night. TF was held due to concern for possible bleeding, H&H remains stable and stools normal this am. Resume TF and continue PPI and carafate. Remains on low dose levophed, titrate as tolerated. Continue daily PST. Possible LTAC placement, awaiting approval. 12/06: MARIA DEL CARMEN overnight. Patient rested overnight. Continue supportive measures. Daily PST as tolerated. Awaiting possible LTAC placement 12/07: MARIA DEL CARMEN overnight. Plan for Tpiece trial today. Continue current supportive measures. Possible LTAC placement 12/08: Patient placed on pressure support trial again today, started on Xanax, no acute events reported overnight. Awaiting insurance approval for LTAC. 12/09: Levophed discontinued, LTAC transfer denied, started on midodrine and Lasix, ultrasound chest pending, started on Xanax 0.[address] De León updated family at bedside today. Started on Dilaudid every 3 hours as needed. 12/10: Patient placed on CPAP trial this morning, no acute events reported overnight. Will order ultrasound-guided thoracentesis. 12/11: Patient had a thoracentesis today, will decrease Xanax dosage and continue midodrine and diuresing. Patient failed CPAP today. 12/12: Patient not tolerate CPAP trials today, no acute events reported overnight 12/13: No acute events overnight. continue PSV trials as tolerated. Daughter up dated at bedside 12/14: Patient noted to be anemic today, ordered gastric occult. Patient seems to be oversedated therefore Xanax changed to as needed and fentanyl patch discontinued. We will continue to monitor hyponatremia. 12/15: MARIA DEL CARMEN overnight. s/p 1unit of PRBCs, H&H stable this am, no signs of any active bleeding. Continue daily PST as tolerated. Awaiting placement. 12/16: Hypertensive this am, Midodrine decreased. Continue daily PST. MARIA DEL CARMEN overnight 12/17: Patient Hgb dropped to 6 this am, no s/s of any active bleeding, VSS. Patient received 1unit of PRBC, will continue to trend H&H. Patient was pancultured and back on IV Abx due to persistent fevers yesterday. ID is also back on the case. Continue IV Abx per ID and f/u on cultures data for sensitivity. Patient also failed PST yesterday, continue daily PST as tolerated. Electrolytes repleted, repeat labs in the am. 12/18: Patient blood cultures is growing GPC 4 out 4 bottles. PICC line D/Rivas, patient is already on IV Abx-cefepine and Vanc and ID is following. Patient remains hemodynamically stable. Daily PST as tolerated adn PRN Benzo for anxiety. 12/19: MARIA DEL CARMEN overnight. Culture data noted, continue IV Abx per ID. Orders placed for repeat Bculture. Gamble D/C overnight, patient is voiding. Check bladder scan as needed for retention. Patient failed PST again today. Continue daily PST as tolerated. 12/20: Fevers improved, Cultures +MRSA, on Vanco per ID. Repeat 2D Echo to r/o endocarditis. Patient continue to fail PST, PEEP increased to 8 today. Continue pulmonary hygiene and vent wean per CCM. Sodium tab added for hyponatremia. 12/22: Patient on pressure support trial for approximately 4 hours today, midodrine dosage increased due to hypotension. Lasix discontinued. 12/23: Started on a.m. Seroquel dose, midodrine increased to 10 mg 3 times daily, 500 mL normal saline bolus. 12/24: Seroquel dose changed (25 every morning, 75 nightly). updated at bedside by Dr. De León. CPAP trials as tolerated. Continue vancomycin. Awaiting placement. 12/25: Continue CPAP as tolerated, added gasx for distention. Continue supportive care 12/26: Patient failed PSV this AM. no acute events overnight. 12/27: GI re-consulted due to abdominal distention. No acute events reported overnight. CPAP trials as tolerated. Dr. Mckenna will get a KUB to rule out possible obstruction. 12/28: KUB shows no acute process, CXR shows improvement. CPAP trials as tolerated. 12/29: CT Abd/pelvis noted with moderated bilateral pleural effusion, anasarca, and ascites. X1dose of IV lasix administered. D/w CCM and GI orders plan for thora and paracentesis by IR. Will also start patient on aldactone Qday. Patient is tolerating trickle feeds this am, continue TF and BR adjusted for constipation. Plan of care was discussed with patient and her at the bedside. Thorough discussion on patient's overall poor prognosis and that pat ient will most likely be vent dependent. Patient's voiced understanding of the info given. All questions and concerns were voiced at this time. 12/30: Patient did not tolerate thoracentesis in IR yesterday due to change in LOC and hypoxia. Plan for possible bedside thoracentesis and paracentesis today. Patient remains afebrile. 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 Patient remains with sign. Piting edema and anasarca, X1 does of PO Zaroxolyn and 2m of IV lasix given. Electrolytes repleted, repeat lab in the am. 12/31: Tolerated Rt. thoracentesis at the bedside yesterday, 1.4L removed. Patient remains stable on the vent this am, tolerating CPAP today PS dropped to 14. Recent CXR noted, left pleural effusion improved. Patient tolerated gentle diurese yesterday, good urine output reported. D/w CCM hold off on Left thoracentesis today, continue PO Aldactone and additonal zaroxolyn and IV lasix again today. F/u CXR in the am. 01/01: This am CXR noted with worsening bilateral pleural effusion. Patient is stable and tolerating PST this am, however PS is back up to 20 this am. BP is soft this am will hold off on IV diuretic for today, continue PO Aldactone. D/w CCM continue gentle diurese as tolerated. Will reassess in the am. Continue support care. 01/02: MARIA DEL CARMEN overnight. VSS this am, tolerating PST. X1dose of 25% IV Albumin following with 20mg IV Lasix today. Continue daily gentle diurese if hemodynamics tolerate it. Continue to monitor and replace electrolytes as needed 01/03: Abdominal distention and vomiting overnight, 600cc of gastric residual removed, TF held. KUB with no acute abnormality. Reglan added X2days, resume TF, and continue BR. Patient is tolerating PST this am. Hemodynamics remains stable, will continue gentle IV diurese. close monitoring to renal function and electrolytes. 01/04: Tolerating TF, nausea/vomiting resolved, last BM on 01/03. Continue Reglan X1 more day. Patient continue to tolerate PST. D/W CCM continue gentle diurese. F/U CXR in the am. Possible US thoracentesis tomorrow. 01/05: no acute events overnight. scheduled for thoracentesis today but procedure pushed to tomorrow. TF restarted and will be NPO post MN. 01/06: planned thoracentesis today. Working with CM for ltac/snf approval. 01/07: s/p thoracentesis 120 cc appears to have been removed. Pulm recommendations noted, agree with continued diuresis and weaning. Continued planning with CM for ltac/snf placement. 01/08: No new issues. Continue vent weaning per pulmonary. Continuing to work with CM for placement. 01/09: No new issues. Continue vent weaning per pulmonary. Continuing to work with CM for placement. Ordered BMP for tomorrow to check kidney function as patient is currently being diuresed. 01/10: No new issues. Continue vent weaning/diuresis as directed by pulmonary medicine.BMP demonstrates normal renal function and potassium. Sodium and Chloride consistent with prior labs. Will recheck BMP in 2 days. Placement continues to be an issue as patient has been denied at all facilities. Will reasses with CM on wednesday. 01/11: Emesis overnight. Do not suspect that she is obstructed as she had 2 BM reported. Will order Reglan prn, drop TF rate to goal of 30 cc/hr. Will continue to work on placement. 01/12: Per RN patient had reported that she was tired and did not want to persist in her current state of health. D/w patient Niraj at patient bedside and stated that I recommended the patient/family at least talk with hospice to get a better understanding of their care. He was agreeable. I spoke with Ms. Busby who will help set up referral for hospice service so that family can be educated and, if the patient chooses, can pursue this option. 01/13: Continue supportive care. Family discussing about hospice. Continue reinforcement and continue weaning as tolerated. Prognosis is guarded and poor. Patient is clinically stable to transfer to the next level of care has not required any escalation in management. Has been stable on the vent awake alert following commands. 01/14: [id number]. Considering abdominal distention tube feedings hold along with the fact that the patient vomited yesterday. Will obtain a CT abdomen and pelvis to further evaluate placement. Discussed with nursing staff. Awaiting to have a family conversation with the for goals of care discussion again. 01/15: Continue supportive care, tube feed was restarted yesterday and tolerated, will start on simethicone for gas control and management. Patient is clinically stable for all lower level of care and continued weaning from the ventilator to appropriate facility. Family still undecided about goals of care. We will also check labs intermittently. 01/16: Patient today went for Chest tube placement on the right side for recurrent pleural effusion, with the goal of evaluating to see if we can wean off the vent. She has remained on the vent and with some persistent anxiety. she continues to tolerate tube feed. Again poor prognosis discussed with family. 01/17: Status post chest tube, with output of approximately 1880 cc since placement. Will continue to work with pulmonology for vent weaning. Assessment and Plan Neuro : Anxiety, chronic pain -Neurology consulted, appreciate recommendations -CT brain showed no acute events -EEG interpreted as abnormal record due to diffuse slowing noted throughout the recording, suggestive of encephalopathic process and/or drug effect, possibilities of postictal state cannot be totally excluded. Clinical corre lation is in order -MRI brain not obtained-> patient has metal in her body -Repeat CT head with no acute findings -Reorientation as needed -Ammonia 42, B12 1823, TSH 1.5 -BuSpar, Seroquel, [place], gabapentin -prn xanax and Dilaudid Cardio: Acute Heart failure with reduced EF, h/o chronic heart block s/p PPM, HTN, CAD s/p PCI (2004), Moderate pulmonary HTN, cardiomyopathy -s/p vasopressor support with levophed -11/04 echocardiogram shows EF 30 to 35%, Moderate pulmonary HTN RVSP 49 -3/4 echo with 35-40% EF -Cardiology consulted, appreciate recommendations -Continue beta-charleen and statin therapy -Midodrine (titrate as needed) -Not on aspirin due to allergy -Blood pressure monitoring per protocol -As needed nitroglycerin Resp: Acute hypoxic respiratory failure secondary to bilateral pneumonia, recurrent bilateral pleural effusion s/p rt sided chest tube. Right pneumothorax (resolved). -COVID-19 PCR negative -Intubated on 11/06 with 6.00 ETT at 18 at the lip and changed over bougie on 11/11-7.50 ETT at 20 at the lip -See RT notes for titration -PSV as tolerated -Surgery consult for trach -Received trach/PEG on 11/26 -S/p bedside bronchoscopy on 11/11 complicated by pneumothorax -S/p chest tube placement for right pneumothorax and dislodgment by patient on 11/15 -ABG/CXR per [facility] -VAP bundle -Right chest wall ultrasound showed pleural effusion s/p chest tube -12/11 US thoracentesis removed 1L fluid -12/29 US thoracentesis removed 1.4L fluid -01/06 thoracentesis planned -01/16 right-sided chest tube placed by IR -SPO2 monitoring GI: S/p GI bleed, duodenal ulcer, transaminitis -GI consulted, appreciate recommendations-signed off -Nutrition consult for tube feeding, currently on nepro TF 45 cc/hr, dropped to 30 cc/hr due to concerns for emesis. -BR: Senokot -s/p peg 11/26 -H2 charleen -Carafate -24-hour +428 ml -10/2021 Gastric occult positive -> EGD-> duodenal ulcer -12/14 occult stool positive - reglan prn. : Urinary retention (resolved), hyponatremia, hypochloremia -Strict intake and output -Trend BMP ID: Septic shock (POA-resolved), bilateral pneumonia, MRSA bacteremia/pna -Infectious disease consulted, appreciate recommendations -COVID-19 PCR negative -Presented with fevers, leukocytosis and hypotension -11/04 blood cultures positive with a group B strep bacteremia 12/19 however repeat blood cultures on the with no growth to date -Echo showed no evidence of vegetation -repeat echo showed EF 35-40 % with no vegetations -ABX therapy: IV vancomycin for 4 weeks (12/16-01/26) -Monitor WBC and fever curve -Bedside bronchoscopy for mucous plug on CXR 11/11 -f/u blood cultures Heme: Acute DVT in the right external iliac vein, common femoral vein, superior aspect of femoral vein, Acute microcytic anemia -Evidenced on bilateral upper lower extremity ultrasound -S/p 7 unit PRBC -Trend CBC -Transfuse for hemoglobin less than 7 -heparin gtt dc d/t anemia -S/p IVC filter Endo: h/o DM and hypothyroidism -Continue home Synthroid -SSI -Accu-Cheks every 6 -Avoid hypoglycemia The high probability of a clinically significant, sudden or life threatening deterioration of the [multi] system(s) required my full and direct attention, intervention and personal management. The aggregate critical care time was [60] minutes. This time is in addition to time spent performing reported procedures but includes the following: [x] Data Review and interpretation [x] Patient assessment and monitoring of vital signs [x] Documentation [x] Medication orders and management History Interval history: Patient seen and examined at bedside. Resting comfortably, only has complaint of rt sided chest wall pain. pleurx catheter appears to be positioned appropriately. There is no evidence of erythema, bleeding, drainage. Total output has been almost 2 L per RN. Patient states that she is able to breathe better after fluid removal. Hospitalist Physical - Physical exam Narrative exam: Physical Exam: VITAL SIGNS: Reviewed. GENERAL: The patient appears normally developed, Vital signs as documented. Frail appearing elderly woman. HEAD: No signs of head trauma. EYES: Pupils are equal. Extraocular motions intact. EARS: Hearing grossly intact. MOUTH: Oropharynx is normal. NECK: No adenopathy, no JVD. CHEST: Bl rhonchi. rt sided chest tube in place. CARDIAC: Regular rate and rhythm. S1 and S2, without murmurs, gallops, or rubs. VASCULAR: No Edema. Peripheral pulses normal and equal in all extremities. ABDOMEN: Soft, non tender and non distended. No rebound or guarding, and no masses palpated. Bowel Sounds normal. MUSCULOSKELETAL: Good range of motion of all major joints. Extremities without clubbing, cyanosis or edema. NEUROLOGIC EXAM: Alert and oriented x 4. no focal sensory or strength deficits. PSYCHIATRIC: anxious appearing SKIN: detail exam as documented in skin assessment - Constitutional Vitals: Temp Pulse Resp BP Pulse Ox 97.5 F L 60 14 101/46 100 01/17/22 11:33 01/17/22 11:00 01/17/22 11:00 01/17/22 11:00 01/17/22 11:00 General appearance: Present: no acute distress HEART Score - HEART Score Troponin: Troponin T 0.078 ng/mL (0.00-0.029) H 01/15/22 Unknown Results - Labs CBC & Chem 7: 01/15/22 Unknown 01/16/22 05:21 Labs: Laboratory Last Values WBC 10.2 K/mm3 (4.5-11.0) 01/15/22 Unknown RBC 2.97 M/mm3 (3.65-5.03) L 01/15/22 Unknown Hgb 8.0 gm/dl (10.1-14.3) L 01/15/22 Unknown Hct 24.3 % (30.3-42.9) L 01/15/22 Unknown MCV 82 fl (79-97) 01/15/22 Unknown MCH 27 pg (28-32) L 01/15/22 Unknown MCHC 33 % (30-34) 01/15/22 Unknown RDW 17.2 % (13.2-15.2) H 01/15/22 Unknown Plt Count 276 K/mm3 (140-440) 01/15/22 Unknown Lymph % (Auto) 24.2 % (13.4-35.0) 01/15/22 Unknown [place] % (Auto) 6.8 % (0.0-7.3) 01/15/22 Unknown Eos % (Auto) 3.5 % (0.0-4.3) 01/15/22 Unknown Baso % (Auto) 0.5 % (0.0-1.8) 01/15/22 Unknown Lymph # (Auto) 2.5 K/mm3 (1.2-5.4) 01/15/22 Unknown [place] # (Auto) 0.7 K/mm3 (0.0-0.8) 01/15/22 Unknown Eos # (Auto) 0.4 K/mm3 (0.0-0.4) 01/15/22 Unknown Baso # (Auto) 0.1 K/mm3 (0.0-0.1) 01/15/22 Unknown Add Manual Diff Complete 01/15/22 14:36 Total Counted 100 01/15/22 14:36 Seg Neutrophils % 65.0 % (40.0-70.0) 01/15/22 Unknown Seg Neuts % (Manual) 82.0 % (40.0-70.0) H 01/15/22 14:36 Band Neutrophils % 0 % 01/15/22 14:36 Lymphocytes % (Manual) 11.0 % (13.4-35.0) L 01/15/22 14:36 Reactive Lymphs % (Man) 0 % 01/15/22 14:36 Monocytes % (Manual) 5.0 % (0.0-7.3) 01/15/22 14:36 Eosinophils % (Manual) 1.0 % (0.0-4.3) 01/15/22 14:36 Basophils % (Manual) 1.0 % (0.0-1.8) 01/15/22 14:36 Metamyelocytes % 0 % 01/15/22 14:36 Myelocytes % 0 % 01/15/22 14:36 Promyelocytes % 0 % 01/15/22 14:36 Blast Cells % 0 % 01/15/22 14:36 Nucleated RBC % Not Reportable 01/15/22 14:36 Seg Neutrophils # 6.6 K/mm3 (1.8-7.7) 01/15/22 Unknown Seg Neutrophils # Man 8.8 K/mm3 (1.8-7.7) H 01/15/22 14:36 Band Neutrophils # 0.0 K/mm3 01/15/22 14:36 Lymphocytes # (Manual) 1.2 K/mm3 (1.2-5.4) 01/15/22 14:36 Abs React Lymphs (Man) 0.0 K/mm3 01/15/22 14:36 Monocytes # (Manual) 0.5 K/mm3 (0.0-0.8) 01/15/22 14:36 Eosinophils # (Manual) 0.1 K/mm3 (0.0-0.4) 01/15/22 14:36 Basophils # (Manual) 0.1 K/mm3 (0.0-0.1) 01/15/22 14:36 Metamyelocytes # 0.0 K/mm3 01/15/22 14:36 Myelocytes # 0.0 K/mm3 01/15/22 14:36 Promyelocytes # 0.0 K/mm3 01/15/22 14:36 Blast Cells # 0.0 K/mm3 01/15/22 14:36 WBC Morphology Not Reportable 01/15/22 14:36 Hypersegmented Neuts Not Reportable 01/15/22 14:36 Hyposegmented Neuts Not Reportable 01/15/22 14:36 Hypogranular Neuts Not Reportable 01/15/22 14:36 Smudge Cells Not Reportable 01/15/22 14:36 Toxic Granulation Not Reportable 01/15/22 14:36 Toxic Vacuolation Not Reportable 01/15/22 14:36 Dohle Bodies Not Reportable 01/15/22 14:36 Pelger-Huet Anomaly Not Reportable 01/15/22 14:36 Irina Rods Not Reportable 01/15/22 14:36 Platelet Estimate Consistent w auto 01/15/22 14:36 Clumped Platelets Not Reportable 01/15/22 14:36 Plt Clumps, EDTA Not Reportable 01/15/22 14:36 Large Platelets Not Reportable 01/15/22 14:36 Giant Platelets Not Reportable 01/15/22 14:36 Platelet Satelliting Not Reportable 01/15/22 14:36 Plt Morphology Comment Not Reportable 01/15/22 14:36 RBC Morphology Not Reportable 01/15/22 14:36 Dimorphic RBCs Not Reportable 01/15/22 14:36 Polychromasia Not Reportable 01/15/22 14:36 Hypochromasia Not Reportable 01/15/22 14:36 Poikilocytosis Not Reportable 01/15/22 14:36 Anisocytosis 1+ 01/15/22 14:36 Microcytosis Not Reportable 01/15/22 14:36 Macrocytosis Not Reportable 01/15/22 14:36 Spherocytes Not Reportable 01/15/22 14:36 Pappenheimer Bodies Not Reportable 01/15/22 14:36 Sickle Cells Not Reportable 01/15/22 14:36 Target Cells Not Reportable 01/15/22 14:36 Tear Drop Cells Not Reportable 01/15/22 14:36 Ovalocytes Not Reportable 01/15/22 14:36 Helmet Cells Not Reportable 01/15/22 14:36 Odonnell-Pyatt Bodies Not Reportable 01/15/22 14:36 [place] Rings Not Reportable 01/15/22 14:36 [place] Cells Not Reportable 01/15/22 14:36 Bite Cells Not Reportable 01/15/22 14:36 Crenated Cell Not Reportable 01/15/22 14:36 Elliptocytes Not Reportable 01/15/22 14:36 Acanthocytes (Spur) Not Reportable 01/15/22 14:36 Rouleaux Not Reportable 01/15/22 14:36 Hemoglobin C Crystals Not Reportable 01/15/22 14:36 Schistocytes Not Reportable 01/15/22 14:36 Malaria parasites Not Reportable 01/15/22 14:36 Godfrey Bodies Not Reportable 01/15/22 14:36 Hem Pathologist Commnt No 01/15/22 14:36 PT 16.9 Sec. (12.2-14.9) H 01/06/22 04:06 INR 1.23 (0.87-1.13) H 01/06/22 04:06 APTT 29.2 Sec. (24.2-36.6) 11/26/21 05:00 D-Dimer 2655.00 ng/mlDDU (0-234) H 11/11/21 04:28 ABG pH 7.479 pH Units (7.350-7.450) H 12/16/21 20:52 ABG pCO2 37.5 mm Hg 12/16/21 20:52 ABG pO2 79.3 mm Hg (80.0-90.0) L 12/16/21 20:52 ABG HCO3 27.3 mmol/L (20.0-26.0) H 12/16/21 20:52 ABG O2 Saturation 97.0 % (95.0-99.0) 12/16/21 20:52 ABG O2 Content 12.3 (0.0-44) 12/16/21 20:52 ABG Base Excess 3.6 mmol/L (-2.0-3.0) H 12/16/21 20:52 ABG Hemoglobin 9.1 gm/dl (12.0-16.0) L 12/16/21 20:52 ABG Carboxyhemoglobin 1.6 % (0.0-5.0) 12/16/21 20:52 ABG Methemoglobin 0.5 % (0.0-1.5) 12/16/21 20:52 Oxyhemoglobin 94.9 % (95.0-99.0) L 12/16/21 20:52 FiO2 30 % 12/16/21 20:52 Sodium 134 mmol/L (137-145) L 01/16/22 05:21 Potassium 3.6 mmol/L (3.6-5.0) 01/16/22 05:21 Chloride 95.4 mmol/L (98-107) L 01/16/22 05:21 Carbon Dioxide 30 mmol/L (22-30) 01/16/22 05:21 Anion Gap 12 mmol/L 01/16/22 05:21 BUN 24 mg/dL (7-17) H 01/16/22 05:21 Creatinine 0.6 mg/dL (0.6-1.2) 01/16/22 05:21 Estimated GFR > 60 ml/min 01/16/22 05:21 BUN/Creatinine Ratio 40 % 01/16/22 05:21 Glucose 100 mg/dL (65-100) 01/16/22 05:21 POC Glucose 111 mg/dL (70-105) H 01/17/22 05:20 Lactic Acid 3.70 mmol/L (0.7-2.0) H* 11/03/21 22:32 Calcium 8.1 mg/dL (8.4-10.2) L 01/16/22 05:21 Phosphorus 3.80 mg/dL (2.5-4.5) 01/05/22 04:30 Magnesium 2.00 mg/dL (1.7-2.3) 01/05/22 04:30 Ferritin 52.6 ng/mL (10.0-200.0) 11/05/21 06:11 Total Bilirubin 0.50 mg/dL (0.1-1.2) 11/17/21 05:56 Direct Bilirubin < 0.2 mg/dL (0-0.2) 11/11/21 04:28 Indirect Bilirubin 0.1 mg/dL 11/11/21 04:28 AST 36 units/L (5-40) 11/17/21 05:56 ALT 47 units/L (7-56) 11/17/21 05:56 Alkaline Phosphatase 107 units/L (35-129) 11/17/21 05:56 Ammonia 42.0 umol/L (25-60) 11/10/21 14:08 Lactate Dehydrogenase 187 units/L (91-180) H 11/05/21 06:11 Troponin T 0.078 ng/mL (0.00-0.029) H 01/15/22 Unknown C-Reactive Protein 22.20 mg/dL (0.00-1.30) H 11/05/21 06:11 NT-Pro-B Natriuret Pep 7895 pg/mL (0-900) H 11/03/21 22:32 Total Protein 5.1 g/dL (6.3-8.2) L 11/17/21 05:56 Albumin 2.2 g/dL (3.9-5) L 11/17/21 05:56 Albumin/Globulin Ratio 0.8 % 11/17/21 05:56 Triglycerides 72 mg/dL (2-149) 01/15/22 21:07 Cholesterol 103 mg/dL (50-199) 01/15/22 21:07 LDL Cholesterol Direct 44 mg/dL (50-130) L 01/15/22 21:07 HDL Cholesterol 46 mg/dL (40-59) 01/15/22 21:07 Cholesterol/HDL Ratio 2.23 % 01/15/22 21:07 Vitamin B12 1823 pg/mL (211-911) H 11/10/21 14:08 TSH 1.510 mlU/mL (0.270-4.200) 11/10/21 14:08 Urine Color Yellow (Yellow) 11/11/21 09:00 Urine Turbidity Slightly-cloudy (Clear) 11/11/21 09:00 Urine pH 5.0 (5.0-7.0) 11/11/21 09:00 Ur Specific [place] 1.009 (1.003-1.030) 11/11/21 09:00 Urine Protein <15 mg/dl mg/dL (Negative) 11/11/21 09:00 Urine Glucose (UA) Neg mg/dL (Negative) 11/11/21 09:00 Urine Ketones Neg mg/dL (Negative) 11/11/21 09:00 Urine Blood Mod (Negative) 11/11/21 09:00 Urine Nitrite Neg (Negative) 11/11/21 09:00 Urine Bilirubin Neg (Negative) 11/11/21 09:00 Urine Urobilinogen < 2.0 mg/dL (<2.0) 11/11/21 09:00 Ur Leukocyte Esterase Neg (Negative) 11/11/21 09:00 Urine WBC (Auto) < 1.0 /HPF (0.0-6.0) 11/11/21 09:00 Urine RBC (Auto) < 1.0 /HPF (0.0-6.0) 11/11/21 09:00 Fluid Type Pleural 01/06/22 13:40 Fluid Color Yellow 01/06/22 13:40 Fluid Appearance Hazy 01/06/22 13:40 Fluid WBC 273 /mm3 01/06/22 13:40 Fluid RBC 45 /mm3 01/06/22 13:40 Fluid Seg Neutrophils 47.0 % 01/06/22 13:40 Fluid Lymphocytes 22.0 % 01/06/22 13:40 Fluid Monocytes 10.0 % 01/06/22 13:40 Fluid Eosinophils 19.0 % 01/06/22 13:40 Fluid Basophils 2.0 % 01/06/22 13:40 Fluid Glucose 96 mg/dL (40-70) H 01/06/22 13:40 Fluid Total Protein < 3.0 (15.0-45.0) L 01/06/22 13:40 Fluid LDH 149 01/06/22 13:40 Vancomycin Trough 15.3 ug/mL (5.0-20.0) 01/16/22 07:30 Random Vancomycin 10.5 ug/mL (0-40.0) 01/04/22 05:00 Coronavirus (PCR) Negative (Negative) 11/10/21 08:30 Blood Type O POSITIVE 12/14/21 10:30 Antibody Screen Negative 12/14/21 10:30 Crossmatch See Detail 12/14/21 10:30 Gamble/IV: Voiding Method External Female Catheter Active Medications - Current Medications Current Medications: Generic Name Dose Route Start Last Admin Trade Name Freq PRN Reason Stop Dose Admin Acetaminophen 650 mg 12/14/21 04:12 01/17/22 11:27 Acetaminophen 325 Mg/10.15 Ml Oral Liqd Unit Dose FEEDTUBE 650 mg Q6H PRN Administration Non Cardiac Pain or Temp>100.5 Hydrocodone Bitart/Acetaminophen 1 each 11/21/21 10:00 01/17/22 09:40 Hydrocodone/Acetaminophen 10-325mg Tab FEEDTUBE 1 each TID YOSSI Administration Alprazolam 0.25 mg 12/30/21 09:00 01/17/22 11:26 Alprazolam 0.25 Mg Tab FEEDTUBE 0.25 mg Q8H PRN Administration Agitation Lipase/Protease/Amylase 1 each 11/08/21 11:09 Lipase 10,500/Protease 25,000/Amylase 43,750 (Units) Dr Lema FEEDTUBE PRN PRN For Clogged Feeding Tube Buspirone HCl 7.5 mg 12/30/21 10:00 01/17/22 09:44 Buspirone 5 Mg Tab FEEDTUBE 7.5 mg BID YOSSI Administration Dextrose 50 ml 01/16/22 14:00 Dextrose 50% In Water (25gm) 50 Ml Syringe IV Q30MIN PRN Hypoglycemia Protocol Docusate Sodium 100 mg 12/30/21 10:00 01/17/22 09:46 Docusate Sodium 100 Mg/10 Ml Oral Liqd FEEDTUBE 100 mg BID YOSSI Administration Furosemide 20 mg 01/08/22 10:00 01/17/22 09:46 Furosemide 20 Mg Tab PO 20 mg QDAY YOSSI Administration Gabapentin 100 mg 12/30/21 10:00 01/17/22 09:45 Gabapentin 100 Mg Cap FEEDTUBE 100 mg QDAY YOSSI Administration Hydrophilic Ointment 1 applic 11/06/21 04:02 Lip Therapy Vaseline TP Q2HR PRN Dry Lips Vancomycin HCl 1 gm in 250 mls @ 166.667 mls/hr 01/04/22 10:00 01/16/22 10:53 Vancomycin/Ns 1 Gm/250 Ml IV 01/26/22 11:29 166.667 mls/hr Q48H YOSSI Administration Lansoprazole 30 mg 11/24/21 22:00 01/17/22 09:47 Lansoprazole 30 Mg Solutab FEEDTUBE 30 mg BID YOSSI Administration Levothyroxine Sodium 125 mcg 12/31/21 06:00 01/17/22 05:27 Levothyroxine 125 Mcg Tab FEEDTUBE 125 mcg DAILY@0600 YOSSI Administration Melatonin 5 mg 12/05/21 22:00 01/16/22 21:02 Melatonin 5 Mg Tab PO 5 mg QHS YOSSI Administration Metoclopramide HCl 10 mg 01/11/22 13:25 01/14/22 14:56 Metoclopramide 10 Mg/2 Ml Inj IV 10 mg Q6H PRN Administration Nausea And Vomiting Metoprolol Tartrate 6.25 mg 12/30/21 10:00 01/17/22 09:46 Metoprolol Tartrate 25 Mg Tab FEEDTUBE 6.25 mg BID YOSSI Administration Midodrine 5 mg 12/30/21 09:00 01/17/22 11:26 Midodrine 5 Mg Tab FEEDTUBE 5 mg TID@0800,1200,1600 YOSSI Administration Multi-Ingred Cream/Lotion/Oil/Oint 1 applic 11/06/21 04:02 Mineral Oil/Petrolatum, White Ophth Oint 3.5 Gm OU Q4HR PRN Dry Eye(s) Ondansetron HCl 4 mg 12/05/21 10:00 01/14/22 06:28 Ondansetron 4 Mg/2 Ml Inj IV 4 mg Q8H PRN Administration Nausea And Vomiting Polyethylene Glycol 17 gm 12/30/21 10:00 01/17/22 09:47 Polyethylene Glycol 3350 17 Gm Powder FEEDTUBE 17 gm QDAY YOSSI Administration Pravastatin Sodium 20 mg 12/30/21 22:00 01/16/22 21:03 Pravastatin 20 Mg Tab FEEDTUBE 20 mg QHS YOSSI Administration Quetiapine Fumarate 25 mg 12/30/21 10:00 01/17/22 09:48 Quetiapine 25 Mg Tab FEEDTUBE 25 mg QAM YOSSI Administration Quetiapine Fumarate 50 mg 12/30/21 22:00 01/16/22 21:03 Quetiapine 25 Mg Tab FEEDTUBE 50 mg QHS YOSSI Administration Senna 17.6 mg 12/29/21 11:00 01/17/22 09:48 Sennosides Oral Liqd 8.8 Mg/5 Ml Oral Liqd FEEDTUBE 17.6 mg Q12HR YOSSI Administration Simethicone 80 mg 01/15/22 15:06 01/15/22 21:10 Simethicone 80 Mg Chew Tab PO 80 mg PC PRN Administration Gas pain Simple Syrup 15 ml 11/08/21 11:09 Simple Syrup 15 Ml FEEDTUBE PRN PRN Hypoglycemia Simple Syrup 30 ml 11/08/21 11:09 Simple Syrup 15 Ml FEEDTUBE PRN PRN Hypoglycemia Sodium Bicarbonate 325 mg 11/08/21 11:09 01/09/22 20:25 Sodium Bicarbonate 325 Mg Tab FEEDTUBE 325 mg PRN PRN Administration For Clogged Feeding Tube Sodium Chloride 10 ml 11/04/21 10:00 01/17/22 09:48 Sodium Chloride 0.9% 10 Ml Flush Syringe IV 10 ml BID YOSSI Administration Sodium Chloride 10 ml 11/04/21 02:03 01/09/22 06:35 Sodium Chloride 0.9% 10 Ml Flush Syringe IV 10 ml PRN PRN Administration LINE FLUSH Spironolactone 25 mg 12/30/21 10:00 01/17/22 09:43 Spironolactone 25 Mg Tab FEEDTUBE 25 mg QDAY YOSSI Administration Sucralfate 1 gm 12/30/21 12:00 01/17/22 11:26 Sucralfate 1 Gm/10 Ml Oral Liqd FEEDTUBE 1 gm Q6HR YOSSI Administration Trazodone HCl 50 mg 12/04/21 22:00 01/16/22 21:02 Trazodone 50 Mg Tab PO 50 mg QHS YOSSI Administration Nutrition/Malnutrition Assess - Dietary Evaluation Nutrition/Malnutrition Findings: Nutrition Notes Start: 11/04/21 17:16 Freq: Status: Active Protocol: Document 01/16/22 13:56 [facility] (Rec: 01/16/22 14:20 [facility] [id number]) Nutrition Notes Initial or Follow up Reassessment Current Diagnosis Coronary Artery Disease, Diabetes,Hypertension,Heart Failure,Respiratory Failure Other Pertinent Diagnosis Bilat pleural effusion Current Diet TF - Vital AF 1.2 at 30ml/hr Labs/Tests Na 134 BUN 24 Pertinent Medications Simethicone and Reglan received prn Height 5 ft Weight 67.2 kg [place] Body Weight (kg) 45.45 BMI 28.9 Weight change and time frame Current wt obtained from bed scale (8.3% wt loss x 13 days) Weight Status Overweight Subjective/Other Information Pt remains on vent support. Pt is s/p CT-guided placement of drainage catheter sec to recurrent pleural effusions. Per RN, pt tolerating TF. Pt awaiting placement. RN requesting Jaswant as pt with wounds. TF rate decreased to 30ml/hr on 01/11 per MD order for presumed intolerance to TF . Percent of energy/protein needs met: 68% energy 67% pro Burn Absent Trauma Absent Minimum of two criteria Yes Interpretation of Weight Loss (severe) >2% in 1 week Muscle Mass Mild Depletion (non-severe) #2 Nutrition Diagnosis Inadequate enteral nutrition infusion Etiology pt with wounds and chronic medical conditions; hx of intolerance to EN support As Evidenced by Signs and Symptoms current TF rate providing <75% of estimated energy and pro needs; unintentional wt loss #1 Nutrition Diagnosis Inadequate oral intake Diagnosis Progress(for reassessment Continues documentation) Is patient on ventilator? Yes Is Patient Ambulatory and/or Out of Bed No REE-([place]-St. Jeor-confined to bed) [phone] Calculation Used for Recommendations [place]-St Jeor Additional Notes Pro needs 1.2-2g/k-134g/ day Fluid needs 1ml/kcal Nutrition Intervention Nutrition Support: Increase TF rate to at least 35ml/hr to meet >75% energy and pro needs. Provide 50ml water flush q4h. Kcal 1,008 Protein (gm) 63 Carbohydrates (gm) 45 Fat (gm) 45 Fluid (mL) 681 Fiber (gm) 4 Add Supplement/Snack (indicate name/kcal Jaswant BID /protein ) Provides kCal: 190 Provides Protein (gm) 5 Goal #1 TF tolerance Goal #2 TF to meet at least 75% energy and pro needs Goal #3 Wound healing Follow-Up By: 01/19/22 Additional Comments F/U: TF rate change/tolerance, Jaswant administration, vent status
[2022-01-17 14:41] LABS: ABG Base Excess 4.5 mmol/L (-2.0-3.0); ABG HCO3 29.5 mmol/L (20.0-26.0); ABG Methemoglobin 0.5 % (0.0-1.5); ABG Oxygen Saturation 87.8 % (95.0-99.0); ABG PCO2 46.5 mm Hg; ABG PH 7.421 pH Units (7.350-7.450)
[2022-01-17] MEDS: traZODone 50 MG TAB PO SCH (21:12)
[2022-01-17] MEDS: MELATONIN 5 MG TAB PO SCH (21:13)
[2022-01-17] MEDS: PRAVASTATIN 20 MG TAB FEEDTUBE SCH (21:13)
[2022-01-18] MEDS: SUCRALFATE 1 GM/10 ML ORAL LIQD FEEDTUBE SCH ×4 (00:22→18:18)
[2022-01-18] MEDS: ALPRAZolam 0.25 MG TAB FEEDTUBE PRN ×2 (02:19→22:40)
[2022-01-18] MEDS: LEVOTHYROXINE 125 MCG TAB FEEDTUBE SCH (05:23)
--- NOTE | 2022-01-18 08:13 | Progress Note ---
Assessment and Plan Assessment and plan: This is an 82-year-old female with DM, HTN , CHB s/p PPM, CAD s/p PCI and arthritis who presented to the emergency department on 11/04 for shortness of breath ongoing for the past 3 days, cough and according to family a fever of 102.2. Upon arrival of EMS patient was found to be tachypneic and hypoxic with SPO2 of 76% on room air which later improved to 88% on nonrebreather. Work-up in the emergency department included a CXR which showed bilateral interstitial pulmonary edema with bilateral pleural effusions and bibasilar opacities, leukocytosis and anemia with a hemoglobin of 6.1. Patient was admitted to the hospitalist service with acute anemia, acute hypoxic respiratory failure, bilateral pneumonia and COVID-19 PUI with consults to pulmonology, infectious disease and later cardiology. Patient was eventually intubated in the emergency department on 11/06. Hospital Course to date: 11/04/2021: Empiric therapy with iv levaquin/vancomycin. COVID PCR pending. Will consult ID. PCCM consulted, will follow recs. Hypotensive this AM, ordered bolus and fluids at 150 cc/hr. May require pressor support if bp does not improve. 11/05/2021: GBS on bcx +, currently on rocephin IV. Currently on bipap due to respiratory distress overnight. Worsening BL opacities on CXR. May be volume overload vs pneumonia. Unfortunately bp too low for lasix at this point. WIll continue levophed and bipap. Once able to tolerate, may do trial of albumin/lasix. Call attempt made to Niraj, no response. Will try again tomorrow to update. 11/06/2021: Decompensated overnight requiring intubation. CXR shows worsening interstitial infiltrates. Currenlty on dopamine, levophed, vasopressin. PICC line ordered. Advised RN to place gamble for I/O monitoring. Would benefit from diuresis but very volume overloaded. Prognosis guarded 11/08: Off sedation this am, remains unresponsive only grimace to pain. Hold all sedatives agents for now, patient is off pressors this am. Hypernatremia from today's lab- D5W X1bag, and low K repleted, repeat lab in the am. Severe constipation also noted from KUB, BR added. 11/09: Sudden SPO2 drop in the 60s this am. Patient was manually bagged and deep suctioned. Patient is currently stable on the vent, repeat CXR with no significant change. D/w CCM Mucomyst and brochodilator added. Patient mentation is unchanged, continue to hold off on sedative agents. Neurology consulted. 11/10: Acute DVT noted on bilateral lower extremity Doppler ultrasound therefore she was started on Lovenox treatment dose. Failed SBT. Hypernatremia and hyperchloremia noted, free water flush adjusted. 11/11: Patient noted to be febrile with increasing of the cytosis, UA/BC sent and CXR ordered. ID escalated antibiotics to cefepime. CXR demonstrated mucous plug, bedside bronchoscopy was performed and O ETT was changed over bougie from 6 cm to 7.5. Patient was noted to have a pneumothorax postprocedure and chest tube was placed. Family updated by [facility]. Free water flush increased and will add Jaswant supplementation. 11/12: Patient not noted to follow commands, hypernatremia worsen/persist, increasing free water flush, potassium and magnesium and phosphorus repleted. Hemoglobin noted to be 7./24.5 from 7.03/12 yesterday. We will continue to trend and monitor. Vent changes per [facility]. Repeat CXR showed no residual pneumothorax. Consider waterseal tomorrow. Given persistent leukocytosis antibiotics escalated to cefepime per ID. 11/13: Remains on cefepime and vancomycin, vent changes per [facility]. Anemia noted and given 1 unit PRBC. And beta-charleen held in setting of Levophed drip infusing. Remains on fentanyl drip. 11/14: Patient put on CPAP trial by [facility], will continue chest tube until after extubation. Will rest on assist control. CT brain was cancelled by radiocommunications technician and reordered. 11/15: Patient removed chest tube overnight. Will obtain cxr. remains on low dose levo. CTH completed with no acute findings. RT to place on CPAP. 11/16: Hypernatremia/hyperchloremia noted on the increase of day water flushes. Anemia noted and ordered PRBC. asked RT to place on cpap but not done yet 11/17: Patient remains on the vent, awake and following commands. H&H stable s/p 2units PRBCs. GI on consult, no intervention at this time. Will continue protonix gtt and serial H&H Q6hrs. Keep patient NPO for now, D5w added for hypernatremia and NPO status. Plan for IVC filter placement today by Vascular. 11/18: Patient is s/p IVC filter. H&H continue to trend down, hbg 6.1 this am, 1 unit of PRBCs ordered. Plan for possible EGD today by GI. Keep patient NPO, continue PPI drip and serial H&H Q6hrs. Electrolytes repleted, repeat lab in the am 11/19: S/p EGD- larger duodenal ulcer noted, see operative note. GI recommendations noted also noted. H&H stable this am. Keep patient on protonix gtt for now. Will keep patient NPO, continue IVF and serial H&H for now. Electrolytes repleted, repeat labs in the am 11/20: Very agitated and restless this am, fentanyl gtt resumed. Patient remains on protonix gtt, H&H remains stable. Will switch protonix gtt to IV BID, continue carafate and okay to resume meds at this time. Will F/u with GI to see if TF can be resumed. Gamble was reinserted overnight for retention. Electrolytes repleted, repeat in the am. Plan for possible PST today for possible extubation per CCM. 11/21: Patient is now on seroquel and patient's home buspar resumed. Patient more calm this morning, fentanyl gtt is off. H&H remains stable and patient is tolerating TF. Patient had a runs of Vtach/PVCs this am, BB added per Cardio. Continue daily PS and wean trial for possible extubation. 11/22: Back on fentanyl gtt overnight , RASS o to -1, following commands. Patient failed PST this am due to increased work of breathing and low SPO2, ABG pending. Patient is also with worsen pitting edema, lasix is still on hold. Will discuss with cardio and CCM to possibly resume lasix. 11/23: MARIA DEL CARMEN overnight. Patient failed PST again this am. Per CCM plan for possible trach and PEG, hold off on IV lasix for now. General surgery consulted and family is aware of possible Trach and PEG. 11/24: Trach/PEG pending this week, continue SBT/SAT as tolerated. No acute events reported overnight. 11/25: Patient was n.p.o. overnight and will remain n.p.o. tonight for trach/PEG tomorrow morning. She failed to support trial again. KUB obtained due to distended belly. 11/26: Patient scheduled for tracheostomy and PEG tube placement today, has been n.p.o. since midnight. No acute events reported overnight. [facility] ordered simethicone scheduled. 11/27: No acute events reported overnight, patient received trach/PEG yesterday. Has been on feedings since last night. Still awaiting LTAC placement. 11/28: Patient magnesium repleted, repeat a.m. labs, SBT 11/29: Patient complains of chest pain but ECG obtained which showed no acute findings, ordered troponin. Patient failed CPAP yesterday and was trialed again today. levophed was restarted but will aggressively wean 11/30: Patient failed SBT. Continue supportive care. Started gabapentin today 12/01: MARIA DEL CARMEN overnight. Continue daily PST. Case management to arrange possible placement 12/02: Report of dark stools overnight, patient is hemodynamically stable. H&H stable, patient is on PPI. Will continue to trend H&H. Continue daily PST as tolerated. Awaiting LTAC vs SNF placement. 12/03: Hypotensive overnight, requiring low dose pressors. S/p X3 days of gentle diurese. Will continue to monitor, wean off pressors as tolerated for MAP of 65. Patient Failed PST yesterday, case management to follow up with insurance for po ssible LTAC placement. Continue daily PST as tolerated. PT eval and treat ordered. 12/04: Increased agitation and anxiety overnight, remains on buspar and seroquel, trazadone added to promote rest. Patient is now working with PT, keep patient engage and awake during the day so she can rest at night. No BM for over 5 days, BR was adjusted. Patient did not tolerate PST again yesterday, continue daily PST as tolerated. Continue to titrate pressor for MAP above 65. Pending possible LTAC placement, case management to arrange. 12/05: Still not getting much rest overnight, will add melatonin for sleep. Continue to engage patient during the day and promote rest at night. TF was held due to concern for possible bleeding, H&H remains stable and stools normal this am. Resume TF and continue PPI and carafate. Remains on low dose levophed, titrate as tolerated. Continue daily PST. Possible LTAC placement, awaiting approval. 12/06: MARIA DEL CARMEN overnight. Patient rested overnight. Continue supportive measures. Daily PST as tolerated. Awaiting possible LTAC placement 12/07: MARIA DEL CARMEN overnight. Plan for Tpiece trial today. Continue current supportive measures. Possible LTAC placement 12/08: Patient placed on pressure support trial again today, started on Xanax, no acute events reported overnight. Awaiting insurance approval for LTAC. 12/09: Levophed discontinued, LTAC transfer denied, started on midodrine and Lasix, ultrasound chest pending, started on Xanax 0.[address] De León updated family at bedside today. Started on Dilaudid every 3 hours as needed. 12/10: Patient placed on CPAP trial this morning, no acute events reported overnight. Will order ultrasound-guided thoracentesis. 12/11: Patient had a thoracentesis today, will decrease Xanax dosage and continue midodrine and diuresing. Patient failed CPAP today. 12/12: Patient not tolerate CPAP trials today, no acute events reported overnight 12/13: No acute events overnight. continue PSV trials as tolerated. Daughter up dated at bedside 12/14: Patient noted to be anemic today, ordered gastric occult. Patient seems to be oversedated therefore Xanax changed to as needed and fentanyl patch discontinued. We will continue to monitor hyponatremia. 12/15: MARIA DEL CARMEN overnight. s/p 1unit of PRBCs, H&H stable this am, no signs of any active bleeding. Continue daily PST as tolerated. Awaiting placement. 12/16: Hypertensive this am, Midodrine decreased. Continue daily PST. MARIA DEL CARMEN overnight 12/17: Patient Hgb dropped to 6 this am, no s/s of any active bleeding, VSS. Patient received 1unit of PRBC, will continue to trend H&H. Patient was pancultured and back on IV Abx due to persistent fevers yesterday. ID is also back on the case. Continue IV Abx per ID and f/u on cultures data for sensitivity. Patient also failed PST yesterday, continue daily PST as tolerated. Electrolytes repleted, repeat labs in the am. 12/18: Patient blood cultures is growing GPC 4 out 4 bottles. PICC line D/Rivas, patient is already on IV Abx-cefepine and Vanc and ID is following. Patient remains hemodynamically stable. Daily PST as tolerated adn PRN Benzo for anxiety. 12/19: MARIA DEL CARMEN overnight. Culture data noted, continue IV Abx per ID. Orders placed for repeat Bculture. Gamble D/C overnight, patient is voiding. Check bladder scan as needed for retention. Patient failed PST again today. Continue daily PST as tolerated. 12/20: Fevers improved, Cultures +MRSA, on Vanco per ID. Repeat 2D Echo to r/o endocarditis. Patient continue to fail PST, PEEP increased to 8 today. Continue pulmonary hygiene and vent wean per CCM. Sodium tab added for hyponatremia. 12/22: Patient on pressure support trial for approximately 4 hours today, midodrine dosage increased due to hypotension. Lasix discontinued. 12/23: Started on a.m. Seroquel dose, midodrine increased to 10 mg 3 times daily, 500 mL normal saline bolus. 12/24: Seroquel dose changed (25 every morning, 75 nightly). updated at bedside by Dr. De León. CPAP trials as tolerated. Continue vancomycin. Awaiting placement. 12/25: Continue CPAP as tolerated, added gasx for distention. Continue supportive care 12/26: Patient failed PSV this AM. no acute events overnight. 12/27: GI re-consulted due to abdominal distention. No acute events reported overnight. CPAP trials as tolerated. Dr. Mckenna will get a KUB to rule out possible obstruction. 12/28: KUB shows no acute process, CXR shows improvement. CPAP trials as tolerated. 12/29: CT Abd/pelvis noted with moderated bilateral pleural effusion, anasarca, and ascites. X1dose of IV lasix administered. D/w CCM and GI orders plan for thora and paracentesis by IR. Will also start patient on aldactone Qday. Patient is tolerating trickle feeds this am, continue TF and BR adjusted for constipation. Plan of care was discussed with patient and her at the bedside. Thorough discussion on patient's overall poor prognosis and that pat ient will most likely be vent dependent. Patient's voiced understanding of the info given. All questions and concerns were voiced at this time. 12/30: Patient did not tolerate thoracentesis in IR yesterday due to change in LOC and hypoxia. Plan for possible bedside thoracentesis and paracentesis today. Patient remains afebrile. Patient required medical terminologist IV abx therapy [id number] left, orders placed for a PICC. Patient remains with sign. Piting edema and anasarca, X1 does of PO Zaroxolyn and 2m of IV lasix given. Electrolytes repleted, repeat lab in the am. 12/31: Tolerated Rt. thoracentesis at the bedside yesterday, 1.4L removed. Patient remains stable on the vent this am, tolerating CPAP today PS dropped to 14. Recent CXR noted, left pleural effusion improved. Patient tolerated gentle diurese yesterday, good urine output reported. D/w CCM hold off on Left thoracentesis today, continue PO Aldactone and additonal zaroxolyn and IV lasix again today. F/u CXR in the am. 01/01: This am CXR noted with worsening bilateral pleural effusion. Patient is stable and tolerating PST this am, however PS is back up to 20 this am. BP is soft this am will hold off on IV diuretic for today, continue PO Aldactone. D/w CCM continue gentle diurese as tolerated. Will reassess in the am. Continue support care. 01/02: MARIA DEL CARMEN overnight. VSS this am, tolerating PST. X1dose of 25% IV Albumin following with 20mg IV Lasix today. Continue daily gentle diurese if hemodynamics tolerate it. Continue to monitor and replace electrolytes as needed 01/03: Abdominal distention and vomiting overnight, 600cc of gastric residual removed, TF held. KUB with no acute abnormality. Reglan added X2days, resume TF, and continue BR. Patient is tolerating PST this am. Hemodynamics remains stable, will continue gentle IV diurese. close monitoring to renal function and electrolytes. 01/04: Tolerating TF, nausea/vomiting resolved, last BM on 01/03. Continue Reglan X1 more day. Patient continue to tolerate PST. D/W CCM continue gentle diurese. F/U CXR in the am. Possible US thoracentesis tomorrow. 01/05: no acute events overnight. scheduled for thoracentesis today but procedure pushed to tomorrow. TF restarted and will be NPO post MN. 01/06: planned thoracentesis today. Working with CM for ltac/snf approval. 01/07: s/p thoracentesis 120 cc appears to have been removed. Pulm recommendations noted, agree with continued diuresis and weaning. Continued planning with CM for ltac/snf placement. 01/08: No new issues. Continue vent weaning per pulmonary. Continuing to work with CM for placement. 01/09: No new issues. Continue vent weaning per pulmonary. Continuing to work with CM for placement. Ordered BMP for tomorrow to check kidney function as patient is currently being diuresed. 01/10: No new issues. Continue vent weaning/diuresis as directed by pulmonary medicine.BMP demonstrates normal renal function and potassium. Sodium and Chloride consistent with prior labs. Will recheck BMP in 2 days. Placement continues to be an issue as patient has been denied at all facilities. Will reasses with CM on wednesday. 01/11: Emesis overnight. Do not suspect that she is obstructed as she had 2 BM reported. Will order Reglan prn, drop TF rate to goal of 30 cc/hr. Will continue to work on placement. 01/12: Per RN patient had reported that she was tired and did not want to persist in her current state of health. D/w patient Niraj at patient bedside and stated that I recommended the patient/family at least talk with hospice to get a better understanding of their care. He was agreeable. I spoke with Ms. Busby who will help set up referral for hospice service so that family can be educated and, if the patient chooses, can pursue this option. 01/13: Continue supportive care. Family discussing about hospice. Continue reinforcement and continue weaning as tolerated. Prognosis is guarded and poor. Patient is clinically stable to transfer to the next level of care has not required any escalation in management. Has been stable on the vent awake alert following commands. 01/14: Xvoto-eo-ytef. Considering abdominal distention tube feedings hold along with the fact that the patient vomited yesterday. Will obtain a CT abdomen and pelvis to further evaluate placement. Discussed with nursing staff. Awaiting to have a family conversation with the for goals of care discussion again. 01/15: Continue supportive care, tube feed was restarted yesterday and tolerated, will start on simethicone for gas control and management. Patient is clinically stable for all lower level of care and continued weaning from the ventilator to appropriate facility. Family still undecided about goals of care. We will also check labs intermittently. 01/16: Patient today went for Chest tube placement on the right side for recurrent pleural effusion, with the goal of evaluating to see if we can wean off the vent. She has remained on the vent and with some persistent anxiety. she continues to tolerate tube feed. Again poor prognosis discussed with family. 01/17: Status post chest tube, with output of approximately 1880 cc since placement. Will continue to work with pulmonology for vent weaning. 01/18: Only tolerated 1 hr of t piece trial yesterday per RT. Patient PaO2 50s on abg last night. Will continue to work with pulmonary medicine for vent weaning. abg, cbc, bmp, xr chest ordered for am. Assessment and Plan Neuro : Anxiety, chronic pain -Neurology consulted, appreciate recommendations -CT brain showed no acute events -EEG interpreted as abnormal record due to diffuse slowing noted throughout the recording, suggestive of encephalopathic process and/or drug effect, possibilities of postictal state cannot be totally excluded. Clinical val elation is in order -MRI brain not obtained-> patient has metal in her body -Repeat CT head with no acute findings -Reorientation as needed -Ammonia 42, B12 1823, TSH 1.5 -BuSpar, Seroquel, [place], gabapentin -prn xanax and Dilaudid Cardio: Acute Heart failure with reduced EF, h/o chronic heart block s/p PPM, HTN, CAD s/p PCI (2004), Moderate pulmonary HTN, cardiomyopathy -s/p vasopressor support with levophed -11/04 echocardiogram shows EF 30 to 35%, Moderate pulmonary HTN RVSP 49 -3/4 echo with 35-40% EF -Cardiology consulted, appreciate recommendations -Continue beta-charleen and statin therapy -Midodrine (titrate as needed) -Not on aspirin due to allergy -Blood pressure monitoring per protocol -As needed nitroglycerin Resp: Acute hypoxic respiratory failure secondary to bilateral pneumonia, recurrent bilateral pleural effusion s/p rt sided chest tube. Right pneumothorax (resolved). -COVID-19 PCR negative -Intubated on 11/06 with 6.00 ETT at 18 at the lip and changed over bougie on 11/11-7.50 ETT at 20 at the lip -See RT notes for titration -PSV as tolerated -Surgery consult for trach -Received trach/PEG on 11/26 -S/p bedside bronchoscopy on 11/11 complicated by pneumothorax -S/p chest tube placement for right pneumothorax and dislodgment by patient on 11/15 -ABG/CXR per CCM -VAP bundle -Right chest wall ultrasound showed pleural effusion s/p chest tube -12/11 US thoracentesis removed 1L fluid -12/29 US thoracentesis removed 1.4L fluid -01/06 thoracentesis planned -01/16 right-sided chest tube placed by IR -SPO2 monitoring GI: S/p GI bleed, duodenal ulcer, transaminitis -GI consulted, appreciate recommendations-signed off -Nutrition consult for tube feeding, currently on nepro TF 45 cc/hr, dropped to 30 cc/hr due to concerns for emesis. -BR: Senokot -s/p peg 11/26 -H2 charleen -Carafate -24-hour +428 ml -10/2021 Gastric occult positive -> EGD-> duodenal ulcer -12/14 occult stool positive - reglan prn. : Urinary retention (resolved), hyponatremia, hypochloremia -Strict intake and output -Trend BMP ID: Septic shock (POA-resolved), bilateral pneumonia, MRSA bacteremia/pna -Infectious disease consulted, appreciate recommendations -COVID-19 PCR negative -Presented with fevers, leukocytosis and hypotension -11/04 blood cultures positive with a group B strep bacteremia 12/19 however repeat blood cultures on the with no growth to date -Echo showed no evidence of vegetation -repeat echo showed EF 35-40 % with no vegetations -ABX therapy: IV vancomycin for 4 weeks (12/16-01/26) -Monitor WBC and fever curve -Bedside bronchoscopy for mucous plug on CXR 11/11 -f/u blood cultures Heme: Acute DVT in the right external iliac vein, common femoral vein, superior aspect of femoral vein, Acute microcytic anemia -Evidenced on bilateral upper lower extremity ultrasound -S/p 7 unit PRBC -Trend CBC -Transfuse for hemoglobin less than 7 -heparin gtt dc d/t anemia -S/p IVC filter Endo: h/o DM and hypothyroidism -Continue home Synthroid -SSI -Accu-Cheks every 6 -Avoid hypoglycemia The high probability of a clinically significant, sudden or life threatening deterioration of the [multi] system(s) required my full and direct attention, intervention and personal management. The aggregate critical care time was [60] minutes. This time is in addition to time spent performing reported procedures but includes the following: [x] Data Review and interpretation [x] Patient assessment and monitoring of vital signs [x] Documentation [x] Medication orders and management History Interval history: I saw and evaluated the patient at bedside. Resting on encounter, some complaint of chest wall pain but had not been admin AM meds yet. RT in room working with patient. Hospitalist Physical - Physical exam Narrative exam: Physical Exam: VITAL SIGNS: Reviewed. GENERAL: The patient appears normally developed, Vital signs as documented. Frail appearing elderly woman. HEAD: No signs of head trauma. EYES: Pupils are equal. Extraocular motions intact. EARS: Hearing grossly intact. MOUTH: Oropharynx is normal. NECK: No adenopathy, no JVD. CHEST: Bl rhonchi. rt sided chest tube in place. CARDIAC: Regular rate and rhythm. S1 and S2, without murmurs, gallops, or rubs. VASCULAR: No Edema. Peripheral pulses normal and equal in all extremities. ABDOMEN: Soft, non tender and non distended. No rebound or guarding, and no masses palpated. Bowel Sounds normal. MUSCULOSKELETAL: Good range of motion of all major joints. Extremities without clubbing, cyanosis or edema. NEUROLOGIC EXAM: Alert and oriented x 4. no focal sensory or strength deficits. PSYCHIATRIC: anxious appearing SKIN: detail exam as documented in skin assessment - Constitutional Vitals: Temp Pulse Resp BP Pulse Ox 97.7 F 60 12 110/51 100 01/18/22 04:00 01/18/22 06:00 01/18/22 06:00 01/18/22 06:00 01/18/22 06:00 General appearance: Present: no acute distress HEART Score - HEART Score Troponin: Troponin T 0.078 ng/mL (0.00-0.029) H 01/15/22 Unknown Results - Labs CBC & Chem 7: 01/15/22 Unknown 01/16/22 05:21 Labs: Laboratory Last Values WBC 10.2 K/mm3 (4.5-11.0) 01/15/22 Unknown RBC 2.97 M/mm3 (3.65-5.03) L 01/15/22 Unknown Hgb 8.0 gm/dl (10.1-14.3) L 01/15/22 Unknown Hct 24.3 % (30.3-42.9) L 01/15/22 Unknown MCV 82 fl (79-97) 01/15/22 Unknown MCH 27 pg (28-32) L 01/15/22 Unknown MCHC 33 % (30-34) 01/15/22 Unknown RDW 17.2 % (13.2-15.2) H 01/15/22 Unknown Plt Count 276 K/mm3 (140-440) 01/15/22 Unknown Lymph % (Auto) 24.2 % (13.4-35.0) 01/15/22 Unknown [place] % (Auto) 6.8 % (0.0-7.3) 01/15/22 Unknown Eos % (Auto) 3.5 % (0.0-4.3) 01/15/22 Unknown Baso % (Auto) 0.5 % (0.0-1.8) 01/15/22 Unknown Lymph # (Auto) 2.5 K/mm3 (1.2-5.4) 01/15/22 Unknown Lawrence # (Auto) 0.7 K/mm3 (0.0-0.8) 01/15/22 Unknown Eos # (Auto) 0.4 K/mm3 (0.0-0.4) 01/15/22 Unknown Baso # (Auto) 0.1 K/mm3 (0.0-0.1) 01/15/22 Unknown Add Manual Diff Complete 01/15/22 14:36 Total Counted 100 01/15/22 14:36 Seg Neutrophils % 65.0 % (40.0-70.0) 01/15/22 Unknown Seg Neuts % (Manual) 82.0 % (40.0-70.0) H 01/15/22 14:36 Band Neutrophils % 0 % 01/15/22 14:36 Lymphocytes % (Manual) 11.0 % (13.4-35.0) L 01/15/22 14:36 Reactive Lymphs % (Man) 0 % 01/15/22 14:36 Monocytes % (Manual) 5.0 % (0.0-7.3) 01/15/22 14:36 Eosinophils % (Manual) 1.0 % (0.0-4.3) 01/15/22 14:36 Basophils % (Manual) 1.0 % (0.0-1.8) 01/15/22 14:36 Metamyelocytes % 0 % 01/15/22 14:36 Myelocytes % 0 % 01/15/22 14:36 Promyelocytes % 0 % 01/15/22 14:36 Blast Cells % 0 % 01/15/22 14:36 Nucleated RBC % Not Reportable 01/15/22 14:36 Seg Neutrophils # 6.6 K/mm3 (1.8-7.7) 01/15/22 Unknown Seg Neutrophils # Man 8.8 K/mm3 (1.8-7.7) H 01/15/22 14:36 Band Neutrophils # 0.0 K/mm3 01/15/22 14:36 Lymphocytes # (Manual) 1.2 K/mm3 (1.2-5.4) 01/15/22 14:36 Abs React Lymphs (Man) 0.0 K/mm3 01/15/22 14:36 Monocytes # (Manual) 0.5 K/mm3 (0.0-0.8) 01/15/22 14:36 Eosinophils # (Manual) 0.1 K/mm3 (0.0-0.4) 01/15/22 14:36 Basophils # (Manual) 0.1 K/mm3 (0.0-0.1) 01/15/22 14:36 Metamyelocytes # 0.0 K/mm3 01/15/22 14:36 Myelocytes # 0.0 K/mm3 01/15/22 14:36 Promyelocytes # 0.0 K/mm3 01/15/22 14:36 Blast Cells # 0.0 K/mm3 01/15/22 14:36 WBC Morphology Not Reportable 01/15/22 14:36 Hypersegmented Neuts Not Reportable 01/15/22 14:36 Hyposegmented Neuts Not Reportable 01/15/22 14:36 Hypogranular Neuts Not Reportable 01/15/22 14:36 Smudge Cells Not Reportable 01/15/22 14:36 Toxic Granulation Not Reportable 01/15/22 14:36 Toxic Vacuolation Not Reportable 01/15/22 14:36 Dohle Bodies Not Reportable 01/15/22 14:36 Pelger-Huet Anomaly Not Reportable 01/15/22 14:36 Irina Rods Not Reportable 01/15/22 14:36 Platelet Estimate Consistent w auto 01/15/22 14:36 Clumped Platelets Not Reportable 01/15/22 14:36 Plt Clumps, EDTA Not Reportable 01/15/22 14:36 Large Platelets Not Reportable 01/15/22 14:36 Giant Platelets Not Reportable 01/15/22 14:36 Platelet Satelliting Not Reportable 01/15/22 14:36 Plt Morphology Comment Not Reportable 01/15/22 14:36 RBC Morphology Not Reportable 01/15/22 14:36 Dimorphic RBCs Not Reportable 01/15/22 14:36 Polychromasia Not Reportable 01/15/22 14:36 Hypochromasia Not Reportable 01/15/22 14:36 Poikilocytosis Not Reportable 01/15/22 14:36 Anisocytosis 1+ 01/15/22 14:36 Microcytosis Not Reportable 01/15/22 14:36 Macrocytosis Not Reportable 01/15/22 14:36 Spherocytes Not Reportable 01/15/22 14:36 Pappenheimer Bodies Not Reportable 01/15/22 14:36 Sickle Cells Not Reportable 01/15/22 14:36 Target Cells Not Reportable 01/15/22 14:36 Tear Drop Cells Not Reportable 01/15/22 14:36 Ovalocytes Not Reportable 01/15/22 14:36 Helmet Cells Not Reportable 01/15/22 14:36 [place] Bodies Not Reportable 01/15/22 14:36 [place] Rings Not Reportable 01/15/22 14:36 [place] Cells Not Reportable 01/15/22 14:36 Bite Cells Not Reportable 01/15/22 14:36 Crenated Cell Not Reportable 01/15/22 14:36 Elliptocytes Not Reportable 01/15/22 14:36 Acanthocytes (Spur) Not Reportable 01/15/22 14:36 Rouleaux Not Reportable 01/15/22 14:36 Hemoglobin C Crystals Not Reportable 01/15/22 14:36 Schistocytes Not Reportable 01/15/22 14:36 Malaria parasites Not Reportable 01/15/22 14:36 Godfrey Bodies Not Reportable 01/15/22 14:36 Hem Pathologist Commnt No 01/15/22 14:36 PT 16.9 Sec. (12.2-14.9) H 01/06/22 04:06 INR 1.23 (0.87-1.13) H 01/06/22 04:06 APTT 29.2 Sec. (24.2-36.6) 11/26/21 05:00 D-Dimer 2655.00 ng/mlDDU (0-234) H 11/11/21 04:28 ABG pH 7.421 pH Units (7.350-7.450) 01/17/22 14:24 ABG pCO2 46.5 mm Hg 01/17/22 14:24 ABG pO2 55.0 mm Hg (80.0-90.0) L 01/17/22 14:24 ABG HCO3 29.5 mmol/L (20.0-26.0) H 01/17/22 14:24 ABG O2 Saturation 87.8 % (95.0-99.0) L 01/17/22 14:24 ABG O2 Content 11.3 (0.0-44) 01/17/22 14:24 ABG Base Excess 4.5 mmol/L (-2.0-3.0) H 01/17/22 14:24 ABG Hemoglobin 9.3 gm/dl (12.0-16.0) L 01/17/22 14:24 ABG Carboxyhemoglobin 1.5 % (0.0-5.0) 01/17/22 14:24 ABG Methemoglobin 0.5 % (0.0-1.5) 01/17/22 14:24 Oxyhemoglobin 86.1 % (95.0-99.0) L 01/17/22 14:24 FiO2 35 % 01/17/22 14:24 Sodium 134 mmol/L (137-145) L 01/16/22 05:21 Potassium 3.6 mmol/L (3.6-5.0) 01/16/22 05:21 Chloride 95.4 mmol/L (98-107) L 01/16/22 05:21 Carbon Dioxide 30 mmol/L (22-30) 01/16/22 05:21 Anion Gap 12 mmol/L 01/16/22 05:21 BUN 24 mg/dL (7-17) H 01/16/22 05:21 Creatinine 0.6 mg/dL (0.6-1.2) 01/16/22 05:21 Estimated GFR > 60 ml/min 01/16/22 05:21 BUN/Creatinine Ratio 40 % 01/16/22 05:21 Glucose 100 mg/dL (65-100) 01/16/22 05:21 POC Glucose 108 mg/dL (70-105) H 01/18/22 05:39 Lactic Acid 3.70 mmol/L (0.7-2.0) H* 11/03/21 22:32 Calcium 8.1 mg/dL (8.4-10.2) L 01/16/22 05:21 Phosphorus 3.80 mg/dL (2.5-4.5) 01/05/22 04:30 Magnesium 2.00 mg/dL (1.7-2.3) 01/05/22 04:30 Ferritin 52.6 ng/mL (10.0-200.0) 11/05/21 06:11 Total Bilirubin 0.50 mg/dL (0.1-1.2) 11/17/21 05:56 Direct Bilirubin < 0.2 mg/dL (0-0.2) 11/11/21 04:28 Indirect Bilirubin 0.1 mg/dL 11/11/21 04:28 AST 36 units/L (5-40) 11/17/21 05:56 ALT 47 units/L (7-56) 11/17/21 05:56 Alkaline Phosphatase 107 units/L (35-129) 11/17/21 05:56 Ammonia 42.0 umol/L (25-60) 11/10/21 14:08 Lactate Dehydrogenase 187 units/L (91-180) H 11/05/21 06:11 Troponin T 0.078 ng/mL (0.00-0.029) H 01/15/22 Unknown C-Reactive Protein 22.20 mg/dL (0.00-1.30) H 11/05/21 06:11 NT-Pro-B Natriuret Pep 7895 pg/mL (0-900) H 11/03/21 22:32 Total Protein 5.1 g/dL (6.3-8.2) L 11/17/21 05:56 Albumin 2.2 g/dL (3.9-5) L 11/17/21 05:56 Albumin/Globulin Ratio 0.8 % 11/17/21 05:56 Triglycerides 72 mg/dL (2-149) 01/15/22 21:07 Cholesterol 103 mg/dL (50-199) 01/15/22 21:07 LDL Cholesterol Direct 44 mg/dL (50-130) L 01/15/22 21:07 HDL Cholesterol 46 mg/dL (40-59) 01/15/22 21:07 Cholesterol/HDL Ratio 2.23 % 01/15/22 21:07 Vitamin B12 1823 pg/mL (211-911) H 11/10/21 14:08 TSH 1.510 mlU/mL (0.270-4.200) 11/10/21 14:08 Urine Color Yellow (Yellow) 11/11/21 09:00 Urine Turbidity Slightly-cloudy (Clear) 11/11/21 09:00 Urine pH 5.0 (5.0-7.0) 11/11/21 09:00 Ur Specific [place] 1.009 (1.003-1.030) 11/11/21 09:00 Urine Protein <15 mg/dl mg/dL (Negative) 11/11/21 09:00 Urine Glucose (UA) Neg mg/dL (Negative) 11/11/21 09:00 Urine Ketones Neg mg/dL (Negative) 11/11/21 09:00 Urine Blood Mod (Negative) 11/11/21 09:00 Urine Nitrite Neg (Negative) 11/11/21 09:00 Urine Bilirubin Neg (Negative) 11/11/21 09:00 Urine Urobilinogen < 2.0 mg/dL (<2.0) 11/11/21 09:00 Ur Leukocyte Esterase Neg (Negative) 11/11/21 09:00 Urine WBC (Auto) < 1.0 /HPF (0.0-6.0) 11/11/21 09:00 Urine RBC (Auto) < 1.0 /HPF (0.0-6.0) 11/11/21 09:00 Fluid Type Pleural 01/06/22 13:40 Fluid Color Yellow 01/06/22 13:40 Fluid Appearance Hazy 01/06/22 13:40 Fluid WBC 273 /mm3 01/06/22 13:40 Fluid RBC 45 /mm3 01/06/22 13:40 Fluid Seg Neutrophils 47.0 % 01/06/22 13:40 Fluid Lymphocytes 22.0 % 01/06/22 13:40 Fluid Monocytes 10.0 % 01/06/22 13:40 Fluid Eosinophils 19.0 % 01/06/22 13:40 Fluid Basophils 2.0 % 01/06/22 13:40 Fluid Glucose 96 mg/dL (40-70) H 01/06/22 13:40 Fluid Total Protein < 3.0 (15.0-45.0) L 01/06/22 13:40 Fluid LDH 149 01/06/22 13:40 Vancomycin Trough 15.3 ug/mL (5.0-20.0) 01/16/22 07:30 Random Vancomycin 10.5 ug/mL (0-40.0) 01/04/22 05:00 Coronavirus (PCR) Negative (Negative) 11/10/21 08:30 Blood Type O POSITIVE 12/14/21 10:30 Antibody Screen Negative 12/14/21 10:30 Crossmatch See Detail 12/14/21 10:30 Microbiology: Microbiology 01/16/22 Unknown Pleural Fluid - Pleura,Rt Lung Body Fluid Culture - Preliminary Gamble/IV: Voiding Method External Female Catheter Active Medications - Current Medications Current Medications: Generic Name Dose Route Start Last Admin Trade Name Freq PRN Reason Stop Dose Admin Acetaminophen 650 mg 12/14/21 04:12 01/17/22 11:27 Acetaminophen 325 Mg/10.15 Ml Oral Liqd Unit Dose FEEDTUBE 650 mg Q6H PRN Administration Non Cardiac Pain or Temp>100.5 Hydrocodone Bitart/Acetaminophen 1 each 11/21/21 10:00 01/17/22 20:04 Hydrocodone/Acetaminophen 10-325mg Tab FEEDTUBE 1 each TID YOSSI Administration Alprazolam 0.25 mg 12/30/21 09:00 01/18/22 02:19 Alprazolam 0.25 Mg Tab FEEDTUBE 0.25 mg Q8H PRN Administration Agitation Lipase/Protease/Amylase 1 each 11/08/21 11:09 Lipase 10,500/Protease 25,000/Amylase 43,750 (Units) Dr Lema FEEDTUBE PRN PRN For Clogged Feeding Tube Buspirone HCl 7.5 mg 12/30/21 10:00 01/17/22 21:12 Buspirone 5 Mg Tab FEEDTUBE 7.5 mg BID YOSSI Administration Dextrose 50 ml 01/16/22 14:00 Dextrose 50% In Water (25gm) 50 Ml Syringe IV Q30MIN PRN Hypoglycemia Protocol Docusate Sodium 100 mg 12/30/21 10:00 01/17/22 21:12 Docusate Sodium 100 Mg/10 Ml Oral Liqd FEEDTUBE 100 mg BID YOSSI Administration Furosemide 20 mg 01/08/22 10:00 01/17/22 09:46 Furosemide 20 Mg Tab PO 20 mg QDAY YOSSI Administration Gabapentin 100 mg 12/30/21 10:00 01/17/22 09:45 Gabapentin 100 Mg Cap FEEDTUBE 100 mg QDAY YOSSI Administration Hydrophilic Ointment 1 applic 11/06/21 04:02 Lip Therapy Vaseline TP Q2HR PRN Dry Lips Vancomycin HCl 1 gm in 250 mls @ 166.667 mls/hr 01/04/22 10:00 01/16/22 10:53 Vancomycin/Ns 1 Gm/250 Ml IV 01/26/22 11:29 166.667 mls/hr Q48H YOSSI Administration Lansoprazole 30 mg 11/24/21 22:00 01/17/22 21:13 Lansoprazole 30 Mg Solutab FEEDTUBE 30 mg BID YOSSI Administration Levothyroxine Sodium 125 mcg 12/31/21 06:00 01/18/22 05:23 Levothyroxine 125 Mcg Tab FEEDTUBE 125 mcg DAILY@0600 YOSSI Administration Melatonin 5 mg 12/05/21 22:00 01/17/22 21:13 Melatonin 5 Mg Tab PO 5 mg QHS YOSSI Administration Metoclopramide HCl 10 mg 01/11/22 13:25 01/14/22 14:56 Metoclopramide 10 Mg/2 Ml Inj IV 10 mg Q6H PRN Administration Nausea And Vomiting Metoprolol Tartrate 6.25 mg 12/30/21 10:00 01/17/22 21:13 Metoprolol Tartrate 25 Mg Tab FEEDTUBE Not Given BID YOSSI Midodrine 5 mg 12/30/21 09:00 01/17/22 15:18 Midodrine 5 Mg Tab FEEDTUBE Not Given TID@0800,1200,1600 [facility] Multi-Ingred Cream/Lotion/Oil/Oint 1 applic 11/06/21 04:02 Mineral Oil/Petrolatum, White Ophth Oint 3.5 Gm OU Q4HR PRN Dry Eye(s) Ondansetron HCl 4 mg 12/05/21 10:00 01/14/22 06:28 Ondansetron 4 Mg/2 Ml Inj IV 4 mg Q8H PRN Administration Nausea And Vomiting Polyethylene Glycol 17 gm 12/30/21 10:00 01/17/22 09:47 Polyethylene Glycol 3350 17 Gm Powder FEEDTUBE 17 gm QDAY YOSSI Administration Pravastatin Sodium 20 mg 12/30/21 22:00 01/17/22 21:13 Pravastatin 20 Mg Tab FEEDTUBE 20 mg QHS YOSSI Administration Quetiapine Fumarate 25 mg 12/30/21 10:00 01/17/22 09:48 Quetiapine 25 Mg Tab FEEDTUBE 25 mg QAM YOSSI Administration Quetiapine Fumarate 50 mg 12/30/21 22:00 01/17/22 21:14 Quetiapine 25 Mg Tab FEEDTUBE 50 mg QHS YOSSI Administration Senna 17.6 mg 12/29/21 11:00 01/17/22 21:13 Sennosides Oral Liqd 8.8 Mg/5 Ml Oral Liqd FEEDTUBE 17.6 mg Q12HR YOSSI Administration Simethicone 80 mg 01/15/22 15:06 01/15/22 21:10 Simethicone 80 Mg Chew Tab PO 80 mg PC PRN Administration Gas pain Simple Syrup 15 ml 11/08/21 11:09 Simple Syrup 15 Ml FEEDTUBE PRN PRN Hypoglycemia Simple Syrup 30 ml 11/08/21 11:09 Simple Syrup 15 Ml FEEDTUBE PRN PRN Hypoglycemia Sodium Bicarbonate 325 mg 11/08/21 11:09 01/09/22 20:25 Sodium Bicarbonate 325 Mg Tab FEEDTUBE 325 mg PRN PRN Administration For Clogged Feeding Tube Sodium Chloride 10 ml 11/04/21 10:00 01/17/22 21:14 Sodium Chloride 0.9% 10 Ml Flush Syringe IV 10 ml BID YOSSI Administration Sodium Chloride 10 ml 11/04/21 02:03 01/09/22 06:35 Sodium Chloride 0.9% 10 Ml Flush Syringe IV 10 ml PRN PRN Administration LINE FLUSH Spironolactone 25 mg 12/30/21 10:00 01/17/22 09:43 Spironolactone 25 Mg Tab FEEDTUBE 25 mg QDAY YOSSI Administration Sucralfate 1 gm 12/30/21 12:00 01/18/22 05:23 Sucralfate 1 Gm/10 Ml Oral Liqd FEEDTUBE 1 gm Q6HR YOSSI Administration Trazodone HCl 50 mg 12/04/21 22:00 01/17/22 21:12 Trazodone 50 Mg Tab PO 50 mg QHS YOSSI Administration Nutrition/Malnutrition Assess - Dietary Evaluation Nutrition/Malnutrition Findings: Nutrition Notes Start: 11/04/21 17:16 Freq: Status: Active Protocol: Document 01/16/22 13:56 [facility] (Rec: 01/16/22 14:20 [facility] [id number]) Nutrition Notes Initial or Follow up Reassessment Current Diagnosis Coronary Artery Disease, Diabetes,Hypertension,Heart Failure,Respiratory Failure Other Pertinent Diagnosis Bilat pleural effusion Current Diet TF - Vital AF 1.2 at 30ml/hr Labs/Tests Na 134 BUN 24 Pertinent Medications Simethicone and Reglan received prn Height 5 ft Weight 67.2 kg [place] Body Weight (kg) 45.45 BMI 28.9 Weight change and time frame Current wt obtained from bed scale (8.3% wt loss x 13 days) Weight Status Overweight Subjective/Other Information Pt remains on vent support. Pt is s/p CT-guided placement of drainage catheter sec to recurrent pleural effusions. Per RN, pt tolerating TF. Pt awaiting placement. RN requesting Jaswant as pt with wounds. TF rate decreased to 30ml/hr on 01/11 per MD order for presumed intolerance to TF . Percent of energy/protein needs met: 68% energy 67% pro Burn Absent Trauma Absent Minimum of two criteria Yes Interpretation of Weight Loss (severe) >2% in 1 week Muscle Mass Mild Depletion (non-severe) #2 Nutrition Diagnosis Inadequate enteral nutrition infusion Etiology pt with wounds and chronic medical conditions; hx of intolerance to EN support As Evidenced by Signs and Symptoms current TF rate providing <75% of estimated energy and pro needs; unintentional wt loss #1 Nutrition Diagnosis Inadequate oral intake Diagnosis Progress(for reassessment Continues documentation) Is patient on ventilator? Yes Is Patient Ambulatory and/or Out of Bed No REE-(Prewitt-St. Jeor-confined to bed) [phone] Calculation Used for Recommendations Prewitt-St Jeor Additional Notes Pro needs 1.2-2g/k-134g/ day Fluid needs 1ml/kcal Nutrition Intervention Nutrition Support: Increase TF rate to at least 35ml/hr to meet >75% energy and pro needs. Provide 50ml water flush q4h. Kcal 1,008 Protein (gm) 63 Carbohydrates (gm) 45 Fat (gm) 45 Fluid (mL) 681 Fiber (gm) 4 Add Supplement/Snack (indicate name/kcal Jaswant BID /protein ) Provides kCal: 190 Provides Protein (gm) 5 Goal #1 TF tolerance Goal #2 TF to meet at least 75% energy and pro needs Goal #3 Wound healing Follow-Up By: 01/19/22 Additional Comments F/U: TF rate change/tolerance, Jaswant administration, vent status
[2022-01-18] MEDS: VANCOMYCIN/NS 1 GM/250 ML 1 GM/250 ML BAG IV SCH (09:27)
[2022-01-18] MEDS: busPIRone 5 MG TAB FEEDTUBE SCH ×2 (09:28→22:23)
[2022-01-18] MEDS: SENNOSIDES ORAL LIQD 8.8 MG/5 ML ORAL LIQD FEEDTUBE SCH ×2 (09:28→22:24)
[2022-01-18] MEDS: HYDROcodone/ACETAMINOPHEN 10-325MG TAB FEEDTUBE SCH ×3 (09:28→22:25)
[2022-01-18] MEDS: QUEtiapine 25 MG TAB FEEDTUBE SCH ×2 (09:28→22:24)
[2022-01-18] MEDS: GABAPENTIN 100 MG CAP FEEDTUBE SCH (09:28)
[2022-01-18] MEDS: DOCUSATE SODIUM 100 MG/10 ML ORAL LIQD FEEDTUBE SCH ×2 (09:28→22:16)
[2022-01-18] MEDS: LANSOPRAZOLE 30 MG SOLUTAB FEEDTUBE SCH ×2 (09:28→22:27)
[2022-01-18] MEDS: POLYETHYLENE GLYCOL 3350 17 GM POWDER FEEDTUBE SCH (09:28)
[2022-01-18] MEDS: FUROSEMIDE 20 MG TAB PO SCH (09:29)
[2022-01-18] MEDS: SPIRONOLACTONE 25 MG TAB FEEDTUBE SCH (09:29)
[2022-01-18] MEDS: METOPROLOL TARTRATE 25 MG TAB FEEDTUBE SCH ×2 (09:29→22:24)
[2022-01-18] MEDS: MIDODRINE 5 MG TAB FEEDTUBE SCH ×3 (09:29→18:18)
--- NOTE | 2022-01-18 12:00 | Electrocardiograph Report ---
[facility] Test Date: 2022-01-15 Test Time: 14:32:08 Pat Name: ENRRIQUE GLASS Department: Room: A266 1 Gender: F [employer]: [id number] : 1940 Requested By: LEAH ALFONSO Order Number: [id number] Reading MD: Estuardo Jaramillo Measurements Intervals [place] Rate: 87 P: 0 MI: 170 QRS: -37 QRSD: 148 T: 123 QT: 390 QTc: 470 Interpretive Statements Sinus rhythm Nonspecific IVCD with LAD Abnormal T, consider ischemia, lateral leads Compared to ECG 01/03/2022 12:51:40 T-wave abnormality now present Possible ischemia now present Electronically Signed On 01-18-2022 12:00:41 EDT by Estuardo Jaramillo
[2022-01-18 13:15] LABS: ABG Base Excess 5.8 mmol/L (-2.0-3.0); ABG HCO3 30.9 mmol/L (20.0-26.0); ABG Methemoglobin 0.3 % (0.0-1.5); ABG Oxygen Saturation 98.1 % (95.0-99.0); ABG PCO2 47.8 mm Hg; ABG PH 7.428 pH Units (7.350-7.450); ABG PO2 112.3 mm Hg (80.0-90.0)
--- NOTE | 2022-01-18 15:02 | Progress Note ---
Assessment and Plan Gram positive Bacteremia (MRSA) Acute respiratory failure with hypoxia, now on MVS Acute microcytic anemia Bilateral pneumonia DVT Left pleural effusion Cardiomyopathy EF 30-35% Moderate pulmonary HTN - RT asked to place on t-piece - target 4 hours today (tolerated 1.5 hours yesterday) - rest on full MVS overnight for now - keep chest tube to continuous suction in short term - no new issues otherwise, continue care as below; - continue thyroid replacement therapy with Levoxyl - continue Lasix 20 mg p.o. daily - follow I's & O's and monitor electrolytes - continue daily SAT and SBT assessment as tolerated - continue Seroquel - continue Vancomycin for MRSA bacteremia (6 weeks of therapy recommended) - prn Levophed for target MAP > 65 mmHg - continue to wean supplemental oxygen for target O2 sat's > 90% acutely - VAP bundle addressed - continue lung protective strategies - continue bronchodilators with routine trach care and pulmonary hygiene per RT - wean per pulmonary driven protocols otherwise - avoid nephrotoxins, renally dose all medications - continue accuchecks with glycemic control per SSI (While critically ill target blood glucose of 140-180 mg/dL; avoid hypoglycemia) - sedation prn for target RASS 0 to -1 - antibiotics per ID recommendations - continue to avoid benzodiazepine's, reduce the possibility of delirium - prn analgesia per CPOT score - Maintenance of sleep-wake cycle, avoid delirium - continue enteral nutritional support at goal rate as tolerated - G.I. & VTE prophylaxis - PT/OT/ROM exercises - continue mobility protocols for pressure ulcer prophylaxis - Monitor hemodynamics closely - continue other care per attending / other consultants - discharge planning ongoing concurrently COVID SPECIFIC INTERVENTIONS - COVID-19 PCR negative .... Re-evaluate in am & prn CONDITION: CRITICAL PROGNOSIS: GUARDED CODE STATUS: FULL CODE The high probability of a clinically significant, sudden or life-threatening deterioration of the [respiratory, cardiovascular & neurologic] system(s) required my full and direct attention, intervention and personal management. The aggregate critical care time was [31] minutes without overlap. Time includes spent on; [x] Data Review and interpretation [x] Patient assessment and monitoring of vital signs [x] Documentation [x] Medication orders and management Subjective Date of service: 01/18/22 Principal diagnosis: Septic shock; AHRF; Anemia; Pneumonia; pleural effusion; HFrEF; Pulm HTN Interval history: Patient is seen today for: Septic shock; Acute hypoxemic respiratory failure; Anemia; Bilateral pneumonia; Left pleural effusion; HFrEF 30-35%; Pulm HTN RVSP 49 Seen and examined at bedside; 24hour events reviewed; nursing and respiratory care staff consulted; no adverse overnight events reported to me; resting in bed; on PSV trial with p-supp @ 10 cm H2O and tolerating well; denies acute chest pain or palpitations Objective Vital Signs - 12hr 01/18/22 01/18/22 01/18/22 04:00 04:15 04:30 Temperature 97.7 F Pulse Rate 60 60 Pulse Rate [ 65 From Monitor] Respiratory 14 Rate Blood Pressure 92/74 103/50 O2 Sat by Pulse 99 100 Oximetry O2 Sat by Pulse 100 Oximetry [ Assessment] 01/18/22 01/18/22 01/18/22 05:00 06:00 08:00 Temperature 97.6 F Pulse Rate 60 60 Pulse Rate [ From Monitor] Respiratory 14 12 Rate Blood Pressure 111/54 110/51 O2 Sat by Pulse 100 100 Oximetry O2 Sat by Pulse Oximetry [ Assessment] 01/18/22 01/18/22 01/18/22 08:50 09:29 09:33 Temperature Pulse Rate 79 75 Pulse Rate [ From Monitor] Respiratory Rate Blood Pressure 119/58 129/73 O2 Sat by Pulse 100 Oximetry O2 Sat by Pulse 99 Oximetry [ Assessment] 01/18/22 01/18/22 01/18/22 09:49 12:00 12:35 Temperature 97.8 F Pulse Rate 67 Pulse Rate [ From Monitor] Respiratory Rate Blood Pressure 123/73 O2 Sat by Pulse 100 99 Oximetry O2 Sat by Pulse Oximetry [ Assessment] Constitutional: no acute distress, alert, other (trach to MVS, frail elderly woman with mildly increased respiratory effort at rest) Eyes: non-icteric ENT: oropharynx moist, other (+ Midline tracheostomy with minimal secretions) Neck: supple, no lymphadenopathy, no JVD Effort: mildly labored Ascultation: Bilateral: diminished breath sounds, rhonchi, other (Right chest tube) Percussion: Right: not dull, Left: dull (bases) Cardiovascular: regular rate and rhythm, other (S1,S2) Gastrointestinal: normoactive bowel sounds, soft, non-tender, non-distended (protuberant) Integumentary: normal Extremities: no cyanosis, pink and warm, pulses normal, edema (upper etremities), anasarca Neurologic: non-focal exam (grossly), pupils equal and round, motor strength normal and Psychiatric: mood appropriate, affect normal CBC and BMP: 01/19/22 04:50 01/19/22 04:50 ABG, PT/INR, D-dimer: ABG ABG pH 7.428 pH Units (7.350-7.450) 01/18/22 12:50 ABG pCO2 47.8 mm Hg 01/18/22 12:50 ABG pO2 112.3 mm Hg (80.0-90.0) H 01/18/22 12:50 ABG O2 Saturation 98.1 % (95.0-99.0) 01/18/22 12:50 PT/INR, D-dimer PT 16.9 Sec. (12.2-14.9) H 01/06/22 04:06 INR 1.23 (0.87-1.13) H 01/06/22 04:06 D-Dimer 2655.00 ng/mlDDU (0-234) H 11/11/21 04:28 Abnormal lab findings: Abnormal Labs 11/03/21 11/03/21 11/03/21 22:32 22:32 22:32 WBC 29.3 H RBC 2.93 L Hgb 6.1 L Hct 21.9 L MCV 75 L MCH 21 L MCHC 28 L RDW 19.7 H Plt Count Seg Neuts % (Manual) 97.0 H Lymphocytes % (Manual) 3.0 L Seg Neutrophils # Man 28.4 H Lymphocytes # (Manual) 0.9 L Monocytes # (Manual) PT 18.6 H INR 1.40 H D-Dimer ABG pH ABG pO2 ABG HCO3 ABG O2 Saturation ABG Base Excess ABG Hemoglobin Oxyhemoglobin Sodium Potassium Chloride Carbon Dioxide 20 L BUN 33 H Creatinine Glucose 119 H POC Glucose Lactic Acid Calcium 8.3 L Phosphorus Magnesium AST ALT Alkaline Phosphatase Lactate Dehydrogenase Troponin T 0.035 H C-Reactive Protein NT-Pro-B Natriuret Pep Total Protein Albumin LDL Cholesterol Direct 34 L Vitamin B12 Fluid Glucose Fluid Total Protein Vancomycin Trough Crossmatch 11/03/21 11/03/21 11/03/21 22:32 22:32 23:57 WBC RBC Hgb Hct MCV MCH MCHC RDW Plt Count Seg Neuts % (Manual) Lymphocytes % (Manual) Seg Neutrophils # Man Lymphocytes # (Manual) Monocytes # (Manual) PT INR D-Dimer ABG pH ABG pO2 ABG HCO3 ABG O2 Saturation ABG Base Excess ABG Hemoglobin Oxyhemoglobin Sodium Potassium Chloride Carbon Dioxide BUN Creatinine Glucose POC Glucose Lactic Acid 3.70 H* Calcium Phosphorus Magnesium AST ALT Alkaline Phosphatase 139 H Lactate Dehydrogenase Troponin T C-Reactive Protein NT-Pro-B Natriuret Pep 7895 H Total Protein Albumin 3.5 L LDL Cholesterol Direct Vitamin B12 Fluid Glucose Fluid Total Protein Vancomycin Trough Crossmatch See Detail 11/04/21 11/04/21 11/05/21 00:59 13:58 00:51 WBC 27.9 H RBC 3.28 L Hgb 7.3 L Hct 25.5 L MCV 78 L MCH 22 L MCHC 29 L RDW 19.1 H Plt Count Seg Neuts % (Manual) 96.0 H Lymphocytes % (Manual) 2.0 L Seg Neutrophils # Man 26.8 H Lymphocytes # (Manual) 0.6 L Monocytes # (Manual) PT INR D-Dimer ABG pH ABG pO2 ABG HCO3 ABG O2 Saturation ABG Base Excess ABG Hemoglobin Oxyhemoglobin Sodium Potassium Chloride Carbon Dioxide BUN Creatinine Glucose POC Glucose Lactic Acid Calcium Phosphorus Magnesium AST ALT Alkaline Phosphatase Lactate Dehydrogenase Troponin T 0.051 H D 0.032 H D C-Reactive Protein NT-Pro-B Natriuret Pep Total Protein Albumin LDL Cholesterol Direct Vitamin B12 Fluid Glucose Fluid Total Protein Vancomycin Trough Crossmatch 11/05/21 11/05/21 11/05/21 06:11 06:11 06:11 WBC 31.8 H RBC 3.57 L Hgb 8.0 L Hct 27.7 L MCV 78 L MCH 22 L MCHC 29 L RDW 19.2 H Plt Count Seg Neuts % (Manual) 91.0 H Lymphocytes % (Manual) 4.5 L Seg Neutrophils # Man 28.9 H Lymphocytes # (Manual) Monocytes # (Manual) 1.1 H PT INR D-Dimer 1494.53 H ABG pH ABG pO2 ABG HCO3 ABG O2 Saturation ABG Base Excess ABG Hemoglobin Oxyhemoglobin Sodium Potassium Chloride Carbon Dioxide 19 L BUN 42 H Creatinine Glucose 115 H POC Glucose Lactic Acid Calcium Phosphorus Magnesium AST 43 H ALT Alkaline Phosphatase Lactate Dehydrogenase 187 H Troponin T C-Reactive Protein 22.20 H NT-Pro-B Natriuret Pep Total Protein 6.0 L Albumin 3.2 L LDL Cholesterol Direct Vitamin B12 Fluid Glucose Fluid Total Protein Vancomycin Trough Crossmatch 11/05/21 11/05/21 11/06/21 06:11 12:15 00:30 WBC RBC Hgb Hct MCV MCH MCHC RDW Plt Count Seg Neuts % (Manual) Lymphocytes % (Manual) Seg Neutrophils # Man Lymphocytes # (Manual) Monocytes # (Manual) PT INR D-Dimer ABG pH ABG pO2 ABG HCO3 ABG O2 Saturation ABG Base Excess ABG Hemoglobin Oxyhemoglobin Sodium Potassium Chloride Carbon Dioxide BUN Creatinine Glucose POC Glucose 113 H 69 L Lactic Acid Calcium Phosphorus Magnesium AST ALT Alkaline Phosphatase Lactate Dehydrogenase Troponin T 0.033 H C-Reactive Protein NT-Pro-B Natriuret Pep Total Protein Albumin LDL Cholesterol Direct Vitamin B12 Fluid Glucose Fluid Total Protein Vancomycin Trough Crossmatch 11/06/21 11/06/21 11/06/21 05:50 15:50 15:50 WBC 25.5 H RBC 3.62 L Hgb 8.0 L Hct 27.5 L MCV 76 L MCH 22 L MCHC 29 L RDW 19.6 H Plt Count Seg Neuts % (Manual) 92.0 H Lymphocytes % (Manual) 5.0 L Seg Neutrophils # Man 23.5 H Lymphocytes # (Manual) Monocytes # (Manual) PT INR D-Dimer ABG pH 7.305 L ABG pO2 ABG HCO3 15.8 L ABG O2 Saturation ABG Base Excess -9.6 L ABG Hemoglobin 8.6 L Oxyhemoglobin 94.6 L Sodium Potassium Chloride 113.9 H Carbon Dioxide 17 L BUN 56 H Creatinine Glucose 114 H POC Glucose Lactic Acid Calcium 7.9 L Phosphorus Magnesium AST 1410 H ALT 934 H Alkaline Phosphatase 142 H Lactate Dehydrogenase Troponin T C-Reactive Protein NT-Pro-B Natriuret Pep Total Protein 5.0 L Albumin 2.6 L LDL Cholesterol Direct Vitamin B12 Fluid Glucose Fluid Total Protein Vancomycin Trough Crossmatch 11/07/21 11/07/21 11/07/21 03:30 04:50 08:07 WBC RBC Hgb Hct MCV MCH MCHC RDW Plt Count Seg Neuts % (Manual) Lymphocytes % (Manual) Seg Neutrophils # Man Lymphocytes # (Manual) Monocytes # (Manual) PT INR D-Dimer ABG pH ABG pO2 296.9 H ABG HCO3 18.1 L ABG O2 Saturation 99.5 H ABG Base Excess -5.9 L ABG Hemoglobin 7.6 L Oxyhemoglobin Sodium Potassium Chloride Carbon Dioxide BUN Creatinine Glucose POC Glucose 106 H 108 H Lactic Acid Calcium Phosphorus Magnesium AST ALT Alkaline Phosphatase Lactate Dehydrogenase Troponin T C-Reactive Protein NT-Pro-B Natriuret Pep Total Protein Albumin LDL Cholesterol Direct Vitamin B12 Fluid Glucose Fluid Total Protein Vancomycin Trough Crossmatch 11/08/21 11/08/21 11/08/21 03:10 18:05 23:43 WBC RBC Hgb Hct MCV MCH MCHC RDW Plt Count Seg Neuts % (Manual) Lymphocytes % (Manual) Seg Neutrophils # Man Lymphocytes # (Manual) Monocytes # (Manual) PT INR D-Dimer ABG pH ABG pO2 127.4 H ABG HCO3 ABG O2 Saturation ABG Base Excess -3.4 L ABG Hemoglobin 7.4 L Oxyhemoglobin Sodium Potassium Chloride Carbon Dioxide BUN Creatinine Glucose POC Glucose 113 H 141 H Lactic Acid Calcium Phosphorus Magnesium AST ALT Alkaline Phosphatase Lactate Dehydrogenase Troponin T C-Reactive Protein NT-Pro-B Natriuret Pep Total Protein Albumin LDL Cholesterol Direct Vitamin B12 Fluid Glucose Fluid Total Protein Vancomycin Trough Crossmatch 11/08/21 11/08/21 11/09/21 Unknown Unknown 02:00 WBC 14.5 H RBC 3.35 L Hgb 7.5 L 8.1 L Hct 25.4 L 27.6 L MCV 76 L 76 L MCH 23 L 22 L MCHC RDW 19.9 H 19.9 H Plt Count Seg Neuts % (Manual) Lymphocytes % (Manual) Seg Neutrophils # Man Lymphocytes # (Manual) Monocytes # (Manual) PT INR D-Dimer ABG pH ABG pO2 ABG HCO3 ABG O2 Saturation ABG Base Excess ABG Hemoglobin Oxyhemoglobin Sodium 154 H D Potassium 3.3 L Chloride 120.7 H Carbon Dioxide 20 L BUN 38 H Creatinine Glucose POC Glucose Lactic Acid Calcium 8.3 L Phosphorus Magnesium AST ALT Alkaline Phosphatase Lactate Dehydrogenase Troponin T C-Reactive Protein NT-Pro-B Natriuret Pep Total Protein Albumin LDL Cholesterol Direct Vitamin B12 Fluid Glucose Fluid Total Protein Vancomycin Trough Crossmatch 11/09/21 11/09/21 11/09/21 02:00 02:31 05:12 WBC RBC Hgb Hct MCV MCH MCHC RDW Plt Count Seg Neuts % (Manual) Lymphocytes % (Manual) Seg Neutrophils # Man Lymphocytes # (Manual) Monocytes # (Manual) PT INR D-Dimer ABG pH 7.479 H ABG pO2 121.3 H ABG HCO3 ABG O2 Saturation ABG Base Excess ABG Hemoglobin 7.3 L Oxyhemoglobin Sodium Potassium Chloride 112.5 H Carbon Dioxide BUN 33 H Creatinine Glucose 161 H POC Glucose 135 H Lactic Acid Calcium Phosphorus Magnesium AST 251 H ALT 481 H Alkaline Phosphatase Lactate Dehydrogenase Troponin T C-Reactive Protein NT-Pro-B Natriuret Pep Total Protein 5.0 L Albumin 2.8 L LDL Cholesterol Direct Vitamin B12 Fluid Glucose Fluid Total Protein Vancomycin Trough Crossmatch 11/09/21 11/09/21 11/09/21 11:33 16:32 23:28 WBC RBC Hgb Hct MCV MCH MCHC RDW Plt Count Seg Neuts % (Manual) Lymphocytes % (Manual) Seg Neutrophils # Man Lymphocytes # (Manual) Monocytes # (Manual) PT INR D-Dimer ABG pH ABG pO2 ABG HCO3 ABG O2 Saturation ABG Base Excess ABG Hemoglobin Oxyhemoglobin Sodium Potassium Chloride Carbon Dioxide BUN Creatinine Glucose POC Glucose 132 H 133 H 143 H Lactic Acid Calcium Phosphorus Magnesium AST ALT Alkaline Phosphatase Lactate Dehydrogenase Troponin T C-Reactive Protein NT-Pro-B Natriuret Pep Total Protein Albumin LDL Cholesterol Direct Vitamin B12 Fluid Glucose Fluid Total Protein Vancomycin Trough Crossmatch 11/10/21 11/10/21 11/10/21 04:00 04:00 05:35 WBC 16.0 H RBC 3.61 L Hgb 8.0 L Hct 27.1 L MCV 75 L MCH 22 L MCHC RDW 20.4 H Plt Count Seg Neuts % (Manual) Lymphocytes % (Manual) Seg Neutrophils # Man Lymphocytes # (Manual) Monocytes # (Manual) PT INR D-Dimer ABG pH ABG pO2 ABG HCO3 ABG O2 Saturation ABG Base Excess ABG Hemoglobin Oxyhemoglobin Sodium 149 H Potassium Chloride 114.1 H Carbon Dioxide BUN 31 H Creatinine Glucose 148 H POC Glucose 132 H Lactic Acid Calcium 8.2 L Phosphorus Magnesium AST ALT Alkaline Phosphatase Lactate Dehydrogenase Troponin T C-Reactive Protein NT-Pro-B Natriuret Pep Total Protein Albumin LDL Cholesterol Direct Vitamin B12 Fluid Glucose Fluid Total Protein Vancomycin Trough Crossmatch 11/10/21 11/10/21 11/10/21 11:31 14:08 15:35 WBC RBC Hgb Hct MCV MCH MCHC RDW Plt Count Seg Neuts % (Manual) Lymphocytes % (Manual) Seg Neutrophils # Man Lymphocytes # (Manual) Monocytes # (Manual) PT INR D-Dimer ABG pH ABG pO2 126.6 H ABG HCO3 ABG O2 Saturation ABG Base Excess ABG Hemoglobin 7.4 L Oxyhemoglobin Sodium Potassium Chloride Carbon Dioxide BUN Creatinine Glucose POC Glucose 147 H Lactic Acid Calcium Phosphorus Magnesium AST ALT Alkaline Phosphatase Lactate Dehydrogenase Troponin T C-Reactive Protein NT-Pro-B Natriuret Pep Total Protein Albumin LDL Cholesterol Direct Vitamin B12 1823 H Fluid Glucose Fluid Total Protein Vancomycin Trough Crossmatch 11/10/21 11/11/21 11/11/21 17:53 00:55 04:28 WBC RBC Hgb Hct MCV MCH MCHC RDW Plt Count Seg Neuts % (Manual) Lymphocytes % (Manual) Seg Neutrophils # Man Lymphocytes # (Manual) Monocytes # (Manual) PT INR D-Dimer ABG pH ABG pO2 ABG HCO3 ABG O2 Saturation ABG Base Excess ABG Hemoglobin Oxyhemoglobin Sodium 149 H Potassium Chloride 112.2 H Carbon Dioxide BUN 34 H Creatinine Glucose 148 H POC Glucose 140 H 145 H Lactic Acid Calcium 7.9 L Phosphorus Magnesium AST 53 H ALT 203 H Alkaline Phosphatase Lactate Dehydrogenase Troponin T C-Reactive Protein NT-Pro-B Natriuret Pep Total Protein 4.9 L Albumin 2.6 L LDL Cholesterol Direct Vitamin B12 Fluid Glucose Fluid Total Protein Vancomycin Trough Crossmatch 11/11/21 11/11/21 11/11/21 04:28 04:28 05:28 WBC 20.9 H RBC 3.47 L Hgb 7.5 L Hct 26.0 L MCV 75 L MCH 22 L MCHC 29 L RDW 21.6 H Plt Count 132 L Seg Neuts % (Manual) Lymphocytes % (Manual) Seg Neutrophils # Man Lymphocytes # (Manual) Monocytes # (Manual) PT INR D-Dimer 2655.00 H ABG pH ABG pO2 ABG HCO3 ABG O2 Saturation ABG Base Excess ABG Hemoglobin Oxyhemoglobin Sodium Potassium Chloride Carbon Dioxide BUN Creatinine Glucose POC Glucose 154 H Lactic Acid Calcium Phosphorus Magnesium AST ALT Alkaline Phosphatase Lactate Dehydrogenase Troponin T C-Reactive Protein NT-Pro-B Natriuret Pep Total Protein Albumin LDL Cholesterol Direct Vitamin B12 Fluid Glucose Fluid Total Protein Vancomycin Trough Crossmatch 11/11/21 11/11/2122 12:38 18:13 00:14 WBC RBC Hgb Hct MCV MCH MCHC RDW Plt Count Seg Neuts % (Manual) Lymphocytes % (Manual) Seg Neutrophils # Man Lymphocytes # (Manual) Monocytes # (Manual) PT INR D-Dimer ABG pH ABG pO2 ABG HCO3 ABG O2 Saturation ABG Base Excess ABG Hemoglobin Oxyhemoglobin Sodium Potassium Chloride Carbon Dioxide BUN Creatinine Glucose POC Glucose 137 H 108 H 137 H Lactic Acid Calcium Phosphorus Magnesium AST ALT Alkaline Phosphatase Lactate Dehydrogenase Troponin T C-Reactive Protein NT-Pro-B Natriuret Pep Total Protein Albumin LDL Cholesterol Direct Vitamin B12 Fluid Glucose Fluid Total Protein Vancomycin Trough Crossmatch 11/12/21 11/12/21 11/12/21 05:40 06:24 11:12 WBC RBC Hgb Hct MCV MCH MCHC RDW Plt Count Seg Neuts % (Manual) Lymphocytes % (Manual) Seg Neutrophils # Man Lymphocytes # (Manual) Monocytes # (Manual) PT INR D-Dimer ABG pH 7.586 H ABG pO2 150.6 H ABG HCO3 27.2 H ABG O2 Saturation 99.1 H ABG Base Excess 5.2 H ABG Hemoglobin 7.5 L Oxyhemoglobin Sodium Potassium Chloride Carbon Dioxide BUN Creatinine Glucose POC Glucose 132 H 140 H Lactic Acid Calcium Phosphorus Magnesium AST ALT Alkaline Phosphatase Lactate Dehydrogenase Troponin T C-Reactive Protein NT-Pro-B Natriuret Pep Total Protein Albumin LDL Cholesterol Direct Vitamin B12 Fluid Glucose Fluid Total Protein Vancomycin Trough Crossmatch 11/12/21 11/12/21 11/12/21 14:50 14:50 17:13 WBC 19.8 H RBC 3.27 L Hgb 7.1 L Hct 24.5 L MCV 75 L MCH 22 L MCHC 29 L RDW 22.3 H Plt Count Seg Neuts % (Manual) Lymphocytes % (Manual) Seg Neutrophils # Man Lymphocytes # (Manual) Monocytes # (Manual) PT INR D-Dimer ABG pH ABG pO2 ABG HCO3 ABG O2 Saturation ABG Base Excess ABG Hemoglobin Oxyhemoglobin Sodium 150 H Potassium 3.3 L Chloride 112.0 H Carbon Dioxide BUN 40 H Creatinine Glucose 151 H POC Glucose 121 H Lactic Acid Calcium 7.4 L Phosphorus 1.70 L Magnesium 1.40 L AST ALT Alkaline Phosphatase Lactate Dehydrogenase Troponin T C-Reactive Protein NT-Pro-B Natriuret Pep Total Protein Albumin LDL Cholesterol Direct Vitamin B12 Fluid Glucose Fluid Total Protein Vancomycin Trough Crossmatch 11/12/21 11/13/21 11/13/21 23:19 05:34 06:30 WBC RBC Hgb Hct MCV MCH MCHC RDW Plt Count Seg Neuts % (Manual) Lymphocytes % (Manual) Seg Neutrophils # Man Lymphocytes # (Manual) Monocytes # (Manual) PT INR D-Dimer ABG pH ABG pO2 ABG HCO3 ABG O2 Saturation ABG Base Excess ABG Hemoglobin Oxyhemoglobin Sodium 149 H Potassium Chloride 60.0 L Carbon Dioxide BUN 40 H Creatinine Glucose 146 H POC Glucose 113 H 132 H Lactic Acid Calcium 7.3 L Phosphorus Magnesium 2.40 H AST ALT 72 H Alkaline Phosphatase Lactate Dehydrogenase Troponin T C-Reactive Protein NT-Pro-B Natriuret Pep Total Protein 5.2 L Albumin 2.2 L LDL Cholesterol Direct Vitamin B12 Fluid Glucose Fluid Total Protein Vancomycin Trough Crossmatch 11/13/21 11/13/21 11/13/21 06:30 08:30 11:19 WBC 21.2 H RBC 3.12 L Hgb 6.8 L Hct 23.2 L MCV 74 L MCH 22 L MCHC 29 L RDW 22.2 H Plt Count 135 L Seg Neuts % (Manual) Lymphocytes % (Manual) Seg Neutrophils # Man Lymphocytes # (Manual) Monocytes # (Manual) PT INR D-Dimer ABG pH ABG pO2 ABG HCO3 ABG O2 Saturation ABG Base Excess ABG Hemoglobin Oxyhemoglobin Sodium Potassium Chloride Carbon Dioxide BUN Creatinine Glucose POC Glucose 136 H Lactic Acid Calcium Phosphorus Magnesium AST ALT Alkaline Phosphatase Lactate Dehydrogenase Troponin T C-Reactive Protein NT-Pro-B Natriuret Pep Total Protein Albumin LDL Cholesterol Direct Vitamin B12 Fluid Glucose Fluid Total Protein Vancomycin Trough Crossmatch See Detail 11/13/21 11/14/21 11/14/21 18:21 00:01 04:46 WBC 20.0 H RBC 3.41 L Hgb 7.9 L Hct 26.8 L MCV MCH 23 L MCHC 29 L RDW 24.0 H Plt Count Seg Neuts % (Manual) Lymphocytes % (Manual) Seg Neutrophils # Man Lymphocytes # (Manual) Monocytes # (Manual) PT INR D-Dimer ABG pH ABG pO2 ABG HCO3 ABG O2 Saturation ABG Base Excess ABG Hemoglobin Oxyhemoglobin Sodium Potassium Chloride Carbon Dioxide BUN Creatinine Glucose POC Glucose 149 H 141 H Lactic Acid Calcium Phosphorus Magnesium AST ALT Alkaline Phosphatase Lactate Dehydrogenase Troponin T C-Reactive Protein NT-Pro-B Natriuret Pep Total Protein Albumin LDL Cholesterol Direct Vitamin B12 Fluid Glucose Fluid Total Protein Vancomycin Trough Crossmatch 11/14/21 11/14/21 11/14/21 04:46 05:10 11:10 WBC RBC Hgb Hct MCV MCH MCHC RDW Plt Count Seg Neuts % (Manual) Lymphocytes % (Manual) Seg Neutrophils # Man Lymphocytes # (Manual) Monocytes # (Manual) PT INR D-Dimer ABG pH ABG pO2 ABG HCO3 ABG O2 Saturation ABG Base Excess ABG Hemoglobin Oxyhemoglobin Sodium 148 H Potassium Chloride 113.1 H Carbon Dioxide BUN 43 H Creatinine Glucose 140 H POC Glucose 132 H 133 H Lactic Acid Calcium 7.5 L Phosphorus Magnesium AST ALT Alkaline Phosphatase Lactate Dehydrogenase Troponin T C-Reactive Protein NT-Pro-B Natriuret Pep Total Protein Albumin LDL Cholesterol Direct Vitamin B12 Fluid Glucose Fluid Total Protein Vancomycin Trough Crossmatch 11/14/21 11/14/21 11/14/21 16:14 17:48 23:23 WBC RBC Hgb Hct MCV MCH MCHC RDW Plt Count Seg Neuts % (Manual) Lymphocytes % (Manual) Seg Neutrophils # Man Lymphocytes # (Manual) Monocytes # (Manual) PT INR D-Dimer ABG pH ABG pO2 ABG HCO3 28.0 H ABG O2 Saturation ABG Base Excess 3.1 H ABG Hemoglobin 5.8 L Oxyhemoglobin 94.8 L Sodium Potassium Chloride Carbon Dioxide BUN Creatinine Glucose POC Glucose 130 H 136 H Lactic Acid Calcium Phosphorus Magnesium AST ALT Alkaline Phosphatase Lactate Dehydrogenase Troponin T C-Reactive Protein NT-Pro-B Natriuret Pep Total Protein Albumin LDL Cholesterol Direct Vitamin B12 Fluid Glucose Fluid Total Protein Vancomycin Trough Crossmatch 11/15/21 11/15/21 11/15/21 05:20 05:50 05:50 WBC 19.9 H RBC 3.50 L Hgb 8.2 L Hct 27.9 L MCV MCH 23 L MCHC 29 L RDW 24.9 H Plt Count Seg Neuts % (Manual) Lymphocytes % (Manual) Seg Neutrophils # Man Lymphocytes # (Manual) Monocytes # (Manual) PT INR D-Dimer ABG pH ABG pO2 ABG HCO3 ABG O2 Saturation ABG Base Excess ABG Hemoglobin Oxyhemoglobin Sodium 149 H Potassium Chloride 112.0 H Carbon Dioxide BUN 48 H Creatinine Glucose 152 H POC Glucose 137 H Lactic Acid Calcium 7.9 L Phosphorus Magnesium AST ALT Alkaline Phosphatase Lactate Dehydrogenase Troponin T C-Reactive Protein NT-Pro-B Natriuret Pep Total Protein Albumin LDL Cholesterol Direct Vitamin B12 Fluid Glucose Fluid Total Protein Vancomycin Trough Crossmatch 11/15/21 11/15/21 11/15/21 12:12 17:07 23:24 WBC RBC Hgb Hct MCV MCH MCHC RDW Plt Count Seg Neuts % (Manual) Lymphocytes % (Manual) Seg Neutrophils # Man Lymphocytes # (Manual) Monocytes # (Manual) PT INR D-Dimer ABG pH ABG pO2 ABG HCO3 ABG O2 Saturation ABG Base Excess ABG Hemoglobin Oxyhemoglobin Sodium Potassium Chloride Carbon Dioxide BUN Creatinine Glucose POC Glucose 114 H 135 H 123 H Lactic Acid Calcium Phosphorus Magnesium AST ALT Alkaline Phosphatase Lactate Dehydrogenase Troponin T C-Reactive Protein NT-Pro-B Natriuret Pep Total Protein Albumin LDL Cholesterol Direct Vitamin B12 Fluid Glucose Fluid Total Protein Vancomycin Trough Crossmatch 11/16/21 11/16/21 11/16/21 05:21 10:00 10:00 WBC 21.7 H RBC 2.57 L Hgb 6.0 L Hct 20.2 L D MCV MCH 24 L MCHC RDW 26.3 H Plt Count Seg Neuts % (Manual) Lymphocytes % (Manual) Seg Neutrophils # Man Lymphocytes # (Manual) Monocytes # (Manual) PT INR D-Dimer ABG pH ABG pO2 ABG HCO3 ABG O2 Saturation ABG Base Excess ABG Hemoglobin Oxyhemoglobin Sodium 153 H Potassium Chloride 114.9 H Carbon Dioxide BUN 74 H Creatinine Glucose 155 H POC Glucose 127 H Lactic Acid Calcium 8.1 L Phosphorus Magnesium AST ALT Alkaline Phosphatase Lactate Dehydrogenase Troponin T C-Reactive Protein NT-Pro-B Natriuret Pep Total Protein Albumin LDL Cholesterol Direct Vitamin B12 Fluid Glucose Fluid Total Protein Vancomycin Trough Crossmatch 11/16/21 11/16/21 11/16/21 11:34 14:00 15:25 WBC 17.2 H RBC 2.08 L Hgb 4.7 L* Hct 16.2 L* MCV 78 L MCH 23 L MCHC 29 L RDW 26.0 H Plt Count Seg Neuts % (Manual) 87.0 H Lymphocytes % (Manual) 8.0 L Seg Neutrophils # Man 15.0 H Lymphocytes # (Manual) Monocytes # (Manual) 0.9 H PT INR D-Dimer ABG pH ABG pO2 ABG HCO3 ABG O2 Saturation ABG Base Excess ABG Hemoglobin Oxyhemoglobin Sodium Potassium Chloride Carbon Dioxide BUN Creatinine Glucose POC Glucose 131 H Lactic Acid Calcium Phosphorus Magnesium AST ALT Alkaline Phosphatase Lactate Dehydrogenase Troponin T C-Reactive Protein NT-Pro-B Natriuret Pep Total Protein Albumin LDL Cholesterol Direct Vitamin B12 Fluid Glucose Fluid Total Protein Vancomycin Trough Crossmatch See Detail 11/16/21 11/16/21 11/16/21 15:25 17:21 22:43 WBC RBC Hgb 8.6 L D Hct 27.7 L D MCV MCH MCHC RDW Plt Count Seg Neuts % (Manual) Lymphocytes % (Manual) Seg Neutrophils # Man Lymphocytes # (Manual) Monocytes # (Manual) PT INR D-Dimer ABG pH ABG pO2 ABG HCO3 ABG O2 Saturation ABG Base Excess ABG Hemoglobin Oxyhemoglobin Sodium 148 H Potassium Chloride 113.2 H Carbon Dioxide BUN 84 H Creatinine Glucose 164 H POC Glucose 124 H Lactic Acid Calcium 7.6 L Phosphorus Magnesium AST ALT Alkaline Phosphatase Lactate Dehydrogenase Troponin T C-Reactive Protein NT-Pro-B Natriuret Pep Total Protein Albumin LDL Cholesterol Direct Vitamin B12 Fluid Glucose Fluid Total Protein Vancomycin Trough Crossmatch 11/16/21 11/17/21 11/17/21 23:07 05:33 05:56 WBC 25.1 H RBC 3.47 L Hgb 8.7 L Hct 28.5 L MCV MCH 25 L MCHC RDW 22.3 H Plt Count Seg Neuts % (Manual) Lymphocytes % (Manual) Seg Neutrophils # Man Lymphocytes # (Manual) Monocytes # (Manual) PT INR D-Dimer ABG pH ABG pO2 ABG HCO3 ABG O2 Saturation ABG Base Excess ABG Hemoglobin Oxyhemoglobin Sodium Potassium Chloride Carbon Dioxide BUN Creatinine Glucose POC Glucose 128 H 133 H Lactic Acid Calcium Phosphorus Magnesium AST ALT Alkaline Phosphatase Lactate Dehydrogenase Troponin T C-Reactive Protein NT-Pro-B Natriuret Pep Total Protein Albumin LDL Cholesterol Direct Vitamin B12 Fluid Glucose Fluid Total Protein Vancomycin Trough Crossmatch 11/17/21 11/17/21 11/17/21 05:56 11:00 11:55 WBC RBC Hgb 8.3 L Hct 26.9 L MCV MCH MCHC RDW Plt Count Seg Neuts % (Manual) Lymphocytes % (Manual) Seg Neutrophils # Man Lymphocytes # (Manual) Monocytes # (Manual) PT INR D-Dimer ABG pH ABG pO2 ABG HCO3 ABG O2 Saturation ABG Base Excess ABG Hemoglobin Oxyhemoglobin Sodium 151 H Potassium Chloride 113.6 H Carbon Dioxide BUN 85 H Creatinine Glucose 132 H POC Glucose 121 H Lactic Acid Calcium 7.8 L Phosphorus Magnesium AST ALT Alkaline Phosphatase Lactate Dehydrogenase Troponin T C-Reactive Protein NT-Pro-B Natriuret Pep Total Protein 5.1 L Albumin 2.2 L LDL Cholesterol Direct Vitamin B12 Fluid Glucose Fluid Total Protein Vancomycin Trough Crossmatch 11/17/21 11/17/21 11/18/21 18:04 18:55 00:26 WBC RBC Hgb 7.5 L 7.1 L Hct 24.8 L 23.6 L MCV MCH MCHC RDW Plt Count Seg Neuts % (Manual) Lymphocytes % (Manual) Seg Neutrophils # Man Lymphocytes # (Manual) Monocytes # (Manual) PT INR D-Dimer ABG pH ABG pO2 ABG HCO3 ABG O2 Saturation ABG Base Excess ABG Hemoglobin Oxyhemoglobin Sodium Potassium Chloride Carbon Dioxide BUN Creatinine Glucose POC Glucose 144 H Lactic Acid Calcium Phosphorus Magnesium AST ALT Alkaline Phosphatase Lactate Dehydrogenase Troponin T C-Reactive Protein NT-Pro-B Natriuret Pep Total Protein Albumin LDL Cholesterol Direct Vitamin B12 Fluid Glucose Fluid Total Protein Vancomycin Trough Crossmatch 11/18/21 11/18/21 11/18/21 00:43 05:10 05:10 WBC 12.5 H RBC 2.39 L Hgb 6.1 L Hct 20.2 L MCV MCH 25 L MCHC RDW 23.2 H Plt Count Seg Neuts % (Manual) Lymphocytes % (Manual) Seg Neutrophils # Man Lymphocytes # (Manual) Monocytes # (Manual) PT INR D-Dimer ABG pH ABG pO2 ABG HCO3 ABG O2 Saturation ABG Base Excess ABG Hemoglobin Oxyhemoglobin Sodium 131 L D Potassium 2.9 L* D Chloride 97.8 L Carbon Dioxide BUN 58 H Creatinine Glucose 665 H* POC Glucose 139 H Lactic Acid Calcium 7.0 L Phosphorus 2.20 L D Magnesium 1.50 L AST ALT Alkaline Phosphatase Lactate Dehydrogenase Troponin T C-Reactive Protein NT-Pro-B Natriuret Pep Total Protein Albumin LDL Cholesterol Direct Vitamin B12 Fluid Glucose Fluid Total Protein Vancomycin Trough Crossmatch 11/18/21 11/18/21 11/18/21 05:23 07:10 10:45 WBC RBC Hgb Hct MCV MCH MCHC RDW Plt Count Seg Neuts % (Manual) Lymphocytes % (Manual) Seg Neutrophils # Man Lymphocytes # (Manual) Monocytes # (Manual) PT INR D-Dimer ABG pH ABG pO2 ABG HCO3 ABG O2 Saturation ABG Base Excess ABG Hemoglobin Oxyhemoglobin Sodium 148 H D Potassium 3.1 L Chloride 111.9 H Carbon Dioxide BUN 63 H Creatinine Glucose 141 H POC Glucose 124 H Lactic Acid Calcium 8.1 L D Phosphorus Magnesium AST ALT Alkaline Phosphatase Lactate Dehydrogenase Troponin T C-Reactive Protein NT-Pro-B Natriuret Pep Total Protein Albumin LDL Cholesterol Direct Vitamin B12 Fluid Glucose Fluid Total Protein Vancomycin Trough Crossmatch See Detail 11/18/21 11/19/21 11/19/21 11:57 00:19 04:55 WBC RBC 3.35 L Hgb 9.0 L 8.9 L Hct 28.3 L D 28.1 L MCV MCH 27 L MCHC RDW 20.3 H Plt Count Seg Neuts % (Manual) Lymphocytes % (Manual) Seg Neutrophils # Man Lymphocytes # (Manual) Monocytes # (Manual) PT INR D-Dimer ABG pH ABG pO2 ABG HCO3 ABG O2 Saturation ABG Base Excess ABG Hemoglobin Oxyhemoglobin Sodium Potassium Chloride Carbon Dioxide BUN Creatinine Glucose POC Glucose 119 H Lactic Acid Calcium Phosphorus Magnesium AST ALT Alkaline Phosphatase Lactate Dehydrogenase Troponin T C-Reactive Protein NT-Pro-B Natriuret Pep Total Protein Albumin LDL Cholesterol Direct Vitamin B12 Fluid Glucose Fluid Total Protein Vancomycin Trough Crossmatch 11/19/21 11/19/21 11/20/21 04:55 05:42 00:55 WBC RBC Hgb 9.0 L Hct 28.6 L MCV MCH MCHC RDW Plt Count Seg Neuts % (Manual) Lymphocytes % (Manual) Seg Neutrophils # Man Lymphocytes # (Manual) Monocytes # (Manual) PT INR D-Dimer ABG pH ABG pO2 ABG HCO3 ABG O2 Saturation ABG Base Excess ABG Hemoglobin Oxyhemoglobin Sodium Potassium 3.5 L Chloride 108.6 H Carbon Dioxide BUN 47 H Creatinine Glucose 207 H POC Glucose 63 L Lactic Acid Calcium 7.1 L Phosphorus Magnesium AST ALT Alkaline Phosphatase Lactate Dehydrogenase Troponin T C-Reactive Protein NT-Pro-B Natriuret Pep Total Protein Albumin LDL Cholesterol Direct Vitamin B12 Fluid Glucose Fluid Total Protein Vancomycin Trough Crossmatch 11/20/21 11/20/21 11/20/21 05:40 05:40 Unknown WBC RBC 3.40 L Hgb 9.1 L Hct 28.8 L MCV MCH 27 L MCHC RDW 20.7 H Plt Count Seg Neuts % (Manual) Lymphocytes % (Manual) Seg Neutrophils # Man Lymphocytes # (Manual) Monocytes # (Manual) PT INR D-Dimer ABG pH ABG pO2 ABG HCO3 ABG O2 Saturation ABG Base Excess -2.7 L ABG Hemoglobin 9.5 L Oxyhemoglobin 94.3 L Sodium Potassium 3.5 L Chloride 108.9 H Carbon Dioxide BUN 37 H Creatinine Glucose 117 H POC Glucose Lactic Acid Calcium 7.5 L Phosphorus Magnesium AST ALT Alkaline Phosphatase Lactate Dehydrogenase Troponin T C-Reactive Protein NT-Pro-B Natriuret Pep Total Protein Albumin LDL Cholesterol Direct Vitamin B12 Fluid Glucose Fluid Total Protein Vancomycin Trough Crossmatch 11/21/21 11/21/21 11/21/21 04:30 04:30 16:00 WBC RBC 3.25 L Hgb 8.6 L Hct 28.1 L MCV MCH 26 L MCHC RDW 20.7 H Plt Count Seg Neuts % (Manual) Lymphocytes % (Manual) Seg Neutrophils # Man Lymphocytes # (Manual) Monocytes # (Manual) PT INR D-Dimer ABG pH ABG pO2 114.2 H ABG HCO3 ABG O2 Saturation ABG Base Excess ABG Hemoglobin 9.1 L Oxyhemoglobin Sodium 134 L Potassium Chloride Carbon Dioxide 20 L BUN 34 H Creatinine Glucose POC Glucose Lactic Acid Calcium 7.1 L Phosphorus Magnesium AST ALT Alkaline Phosphatase Lactate Dehydrogenase Troponin T C-Reactive Protein NT-Pro-B Natriuret Pep Total Protein Albumin LDL Cholesterol Direct Vitamin B12 Fluid Glucose Fluid Total Protein Vancomycin Trough Crossmatch 11/22/21 11/22/21 11/22/21 07:07 07:07 23:54 WBC RBC 3.30 L Hgb 9.0 L Hct 28.5 L MCV MCH 27 L MCHC RDW 21.0 H Plt Count Seg Neuts % (Manual) Lymphocytes % (Manual) Seg Neutrophils # Man Lymphocytes # (Manual) Monocytes # (Manual) PT INR D-Dimer ABG pH ABG pO2 ABG HCO3 ABG O2 Saturation ABG Base Excess ABG Hemoglobin Oxyhemoglobin Sodium Potassium Chloride Carbon Dioxide BUN 32 H Creatinine Glucose 106 H POC Glucose 110 H Lactic Acid Calcium 7.5 L Phosphorus Magnesium AST ALT Alkaline Phosphatase Lactate Dehydrogenase Troponin T C-Reactive Protein NT-Pro-B Natriuret Pep Total Protein Albumin LDL Cholesterol Direct Vitamin B12 Fluid Glucose Fluid Total Protein Vancomycin Trough Crossmatch 11/23/21 11/23/21 11/23/21 04:38 04:38 06:01 WBC RBC 3.23 L Hgb 8.8 L Hct 28.0 L MCV MCH 27 L MCHC RDW 21.3 H Plt Count Seg Neuts % (Manual) Lymphocytes % (Manual) Seg Neutrophils # Man Lymphocytes # (Manual) Monocytes # (Manual) PT INR D-Dimer ABG pH ABG pO2 ABG HCO3 ABG O2 Saturation ABG Base Excess ABG Hemoglobin Oxyhemoglobin Sodium 136 L Potassium Chloride Carbon Dioxide 20 L BUN 32 H Creatinine Glucose 109 H POC Glucose 115 H Lactic Acid Calcium 7.7 L Phosphorus Magnesium AST ALT Alkaline Phosphatase Lactate Dehydrogenase Troponin T C-Reactive Protein NT-Pro-B Natriuret Pep Total Protein Albumin LDL Cholesterol Direct Vitamin B12 Fluid Glucose Fluid Total Protein Vancomycin Trough Crossmatch 11/23/21 11/24/21 11/24/21 11:40 00:03 04:13 WBC RBC 3.18 L Hgb 8.5 L Hct 27.5 L MCV MCH 27 L MCHC RDW 21.6 H Plt Count Seg Neuts % (Manual) Lymphocytes % (Manual) Seg Neutrophils # Man Lymphocytes # (Manual) Monocytes # (Manual) PT INR D-Dimer ABG pH ABG pO2 ABG HCO3 ABG O2 Saturation ABG Base Excess ABG Hemoglobin Oxyhemoglobin Sodium Potassium Chloride Carbon Dioxide BUN Creatinine Glucose POC Glucose 117 H 111 H Lactic Acid Calcium Phosphorus Magnesium AST ALT Alkaline Phosphatase Lactate Dehydrogenase Troponin T C-Reactive Protein NT-Pro-B Natriuret Pep Total Protein Albumin LDL Cholesterol Direct Vitamin B12 Fluid Glucose Fluid Total Protein Vancomycin Trough Crossmatch 11/24/21 11/24/21 11/24/21 04:13 05:30 11:10 WBC RBC Hgb Hct MCV MCH MCHC RDW Plt Count Seg Neuts % (Manual) Lymphocytes % (Manual) Seg Neutrophils # Man Lymphocytes # (Manual) Monocytes # (Manual) PT INR D-Dimer ABG pH ABG pO2 ABG HCO3 ABG O2 Saturation ABG Base Excess ABG Hemoglobin Oxyhemoglobin Sodium Potassium Chloride Carbon Dioxide BUN 31 H Creatinine Glucose 101 H POC Glucose 115 H 107 H Lactic Acid Calcium 7.7 L Phosphorus Magnesium AST ALT Alkaline Phosphatase Lactate Dehydrogenase Troponin T C-Reactive Protein NT-Pro-B Natriuret Pep Total Protein Albumin LDL Cholesterol Direct Vitamin B12 Fluid Glucose Fluid Total Protein Vancomycin Trough Crossmatch 11/24/21 11/24/21 11/25/21 16:34 17:57 05:12 WBC RBC 3.11 L Hgb 8.2 L Hct 26.6 L MCV MCH 26 L MCHC RDW 21.3 H Plt Count Seg Neuts % (Manual) Lymphocytes % (Manual) Seg Neutrophils # Man Lymphocytes # (Manual) Monocytes # (Manual) PT INR D-Dimer ABG pH ABG pO2 ABG HCO3 ABG O2 Saturation ABG Base Excess ABG Hemoglobin Oxyhemoglobin Sodium Potassium Chloride Carbon Dioxide BUN Creatinine Glucose POC Glucose 115 H 110 H Lactic Acid Calcium Phosphorus Magnesium AST ALT Alkaline Phosphatase Lactate Dehydrogenase Troponin T C-Reactive Protein NT-Pro-B Natriuret Pep Total Protein Albumin LDL Cholesterol Direct Vitamin B12 Fluid Glucose Fluid Total Protein Vancomycin Trough Crossmatch 11/25/21 11/25/21 11/26/21 05:12 11:20 05:00 WBC RBC 3.30 L Hgb 8.8 L Hct 28.2 L MCV MCH 27 L MCHC RDW 20.7 H Plt Count Seg Neuts % (Manual) Lymphocytes % (Manual) Seg Neutrophils # Man Lymphocytes # (Manual) Monocytes # (Manual) PT INR D-Dimer ABG pH ABG pO2 ABG HCO3 ABG O2 Saturation ABG Base Excess ABG Hemoglobin Oxyhemoglobin Sodium Potassium Chloride Carbon Dioxide BUN 32 H Creatinine Glucose 118 H POC Glucose 118 H Lactic Acid Calcium 8.2 L Phosphorus Magnesium AST ALT Alkaline Phosphatase Lactate Dehydrogenase Troponin T C-Reactive Protein NT-Pro-B Natriuret Pep Total Protein Albumin LDL Cholesterol Direct Vitamin B12 Fluid Glucose Fluid Total Protein Vancomycin Trough Crossmatch 11/26/21 11/26/21 11/26/21 05:00 05:00 05:44 WBC RBC Hgb Hct MCV MCH MCHC RDW Plt Count Seg Neuts % (Manual) Lymphocytes % (Manual) Seg Neutrophils # Man Lymphocytes # (Manual) Monocytes # (Manual) PT 16.9 H INR 1.24 H D-Dimer ABG pH ABG pO2 ABG HCO3 ABG O2 Saturation ABG Base Excess ABG Hemoglobin Oxyhemoglobin Sodium Potassium Chloride Carbon Dioxide BUN 31 H Creatinine Glucose 104 H POC Glucose 110 H Lactic Acid Calcium 7.9 L Phosphorus Magnesium AST ALT Alkaline Phosphatase Lactate Dehydrogenase Troponin T C-Reactive Protein NT-Pro-B Natriuret Pep Total Protein Albumin LDL Cholesterol Direct Vitamin B12 Fluid Glucose Fluid Total Protein Vancomycin Trough Crossmatch 11/26/21 11/27/21 11/27/21 23:55 07:40 07:40 WBC RBC 3.18 L Hgb 8.5 L Hct 27.0 L MCV MCH 27 L MCHC RDW 21.2 H Plt Count Seg Neuts % (Manual) Lymphocytes % (Manual) Seg Neutrophils # Man Lymphocytes # (Manual) Monocytes # (Manual) PT INR D-Dimer ABG pH ABG pO2 ABG HCO3 ABG O2 Saturation ABG Base Excess ABG Hemoglobin Oxyhemoglobin Sodium Potassium Chloride Carbon Dioxide BUN 27 H Creatinine Glucose 112 H POC Glucose 63 L Lactic Acid Calcium 7.6 L Phosphorus Magnesium AST ALT Alkaline Phosphatase Lactate Dehydrogenase Troponin T C-Reactive Protein NT-Pro-B Natriuret Pep Total Protein Albumin LDL Cholesterol Direct Vitamin B12 Fluid Glucose Fluid Total Protein Vancomycin Trough Crossmatch 11/27/21 11/27/21 11/27/21 12:04 13:40 13:40 WBC RBC 3.31 L Hgb 8.7 L Hct 28.0 L MCV MCH 26 L MCHC RDW 20.7 H Plt Count Seg Neuts % (Manual) Lymphocytes % (Manual) Seg Neutrophils # Man Lymphocytes # (Manual) Monocytes # (Manual) PT INR D-Dimer ABG pH ABG pO2 ABG HCO3 ABG O2 Saturation ABG Base Excess ABG Hemoglobin Oxyhemoglobin Sodium 136 L Potassium Chloride Carbon Dioxide BUN 25 H Creatinine Glucose 127 H POC Glucose 109 H Lactic Acid Calcium 7.6 L Phosphorus Magnesium 1.40 L AST ALT Alkaline Phosphatase Lactate Dehydrogenase Troponin T C-Reactive Protein NT-Pro-B Natriuret Pep Total Protein Albumin LDL Cholesterol Direct Vitamin B12 Fluid Glucose Fluid Total Protein Vancomycin Trough Crossmatch 11/27/21 11/27/21 11/28/21 17:44 23:33 12:20 WBC RBC Hgb Hct MCV MCH MCHC RDW Plt Count Seg Neuts % (Manual) Lymphocytes % (Manual) Seg Neutrophils # Man Lymphocytes # (Manual) Monocytes # (Manual) PT INR D-Dimer ABG pH ABG pO2 ABG HCO3 ABG O2 Saturation ABG Base Excess ABG Hemoglobin Oxyhemoglobin Sodium Potassium Chloride Carbon Dioxide BUN Creatinine Glucose POC Glucose 107 H 108 H 114 H Lactic Acid Calcium Phosphorus Magnesium AST ALT Alkaline Phosphatase Lactate Dehydrogenase Troponin T C-Reactive Protein NT-Pro-B Natriuret Pep Total Protein Albumin LDL Cholesterol Direct Vitamin B12 Fluid Glucose Fluid Total Protein Vancomycin Trough Crossmatch 11/29/21 11/29/21 11/29/21 00:09 03:20 03:20 WBC RBC 3.05 L Hgb 8.2 L Hct 25.8 L MCV MCH 27 L MCHC RDW 20.9 H Plt Count Seg Neuts % (Manual) Lymphocytes % (Manual) Seg Neutrophils # Man Lymphocytes # (Manual) Monocytes # (Manual) PT INR D-Dimer ABG pH ABG pO2 ABG HCO3 ABG O2 Saturation ABG Base Excess ABG Hemoglobin Oxyhemoglobin Sodium 133 L Potassium Chloride Carbon Dioxide BUN 24 H Creatinine Glucose 137 H POC Glucose 134 H Lactic Acid Calcium 7.4 L Phosphorus Magnesium AST ALT Alkaline Phosphatase Lactate Dehydrogenase Troponin T C-Reactive Protein NT-Pro-B Natriuret Pep Total Protein Albumin LDL Cholesterol Direct Vitamin B12 Fluid Glucose Fluid Total Protein Vancomycin Trough Crossmatch 11/29/21 11/29/21 11/29/21 05:38 11:39 17:11 WBC RBC Hgb Hct MCV MCH MCHC RDW Plt Count Seg Neuts % (Manual) Lymphocytes % (Manual) Seg Neutrophils # Man Lymphocytes # (Manual) Monocytes # (Manual) PT INR D-Dimer ABG pH ABG pO2 ABG HCO3 ABG O2 Saturation ABG Base Excess ABG Hemoglobin Oxyhemoglobin Sodium Potassium Chloride Carbon Dioxide BUN Creatinine Glucose POC Glucose 117 H 143 H 124 H Lactic Acid Calcium Phosphorus Magnesium AST ALT Alkaline Phosphatase Lactate Dehydrogenase Troponin T C-Reactive Protein NT-Pro-B Natriuret Pep Total Protein Albumin LDL Cholesterol Direct Vitamin B12 Fluid Glucose Fluid Total Protein Vancomycin Trough Crossmatch 11/29/21 11/30/21 11/30/21 20:15 05:40 05:40 WBC 12.6 H RBC 3.41 L Hgb 9.1 L Hct 28.9 L MCV MCH 27 L MCHC RDW 20.4 H Plt Count Seg Neuts % (Manual) Lymphocytes % (Manual) Seg Neutrophils # Man Lymphocytes # (Manual) Monocytes # (Manual) PT INR D-Dimer ABG pH ABG pO2 ABG HCO3 ABG O2 Saturation ABG Base Excess ABG Hemoglobin Oxyhemoglobin Sodium Potassium Chloride Carbon Dioxide BUN 24 H Creatinine Glucose 131 H POC Glucose Lactic Acid Calcium 7.6 L Phosphorus Magnesium AST ALT Alkaline Phosphatase Lactate Dehydrogenase Troponin T 0.045 H C-Reactive Protein NT-Pro-B Natriuret Pep Total Protein Albumin LDL Cholesterol Direct 25 L Vitamin B12 Fluid Glucose Fluid Total Protein Vancomycin Trough Crossmatch 11/30/21 11/30/21 12/01/21 11:29 16:51 05:00 WBC RBC 2.97 L Hgb 8.0 L Hct 25.0 L MCV MCH 27 L MCHC RDW 20.8 H Plt Count Seg Neuts % (Manual) Lymphocytes % (Manual) Seg Neutrophils # Man Lymphocytes # (Manual) Monocytes # (Manual) PT INR D-Dimer ABG pH ABG pO2 ABG HCO3 ABG O2 Saturation ABG Base Excess ABG Hemoglobin Oxyhemoglobin Sodium Potassium Chloride Carbon Dioxide BUN Creatinine Glucose POC Glucose 123 H 114 H Lactic Acid Calcium Phosphorus Magnesium AST ALT Alkaline Phosphatase Lactate Dehydrogenase Troponin T C-Reactive Protein NT-Pro-B Natriuret Pep Total Protein Albumin LDL Cholesterol Direct Vitamin B12 Fluid Glucose Fluid Total Protein Vancomycin Trough Crossmatch 12/01/21 12/01/21 12/01/21 05:00 05:25 11:54 WBC RBC Hgb Hct MCV MCH MCHC RDW Plt Count Seg Neuts % (Manual) Lymphocytes % (Manual) Seg Neutrophils # Man Lymphocytes # (Manual) Monocytes # (Manual) PT INR D-Dimer ABG pH ABG pO2 ABG HCO3 ABG O2 Saturation ABG Base Excess ABG Hemoglobin Oxyhemoglobin Sodium 136 L Potassium Chloride Carbon Dioxide BUN 24 H Creatinine Glucose 117 H POC Glucose 108 H 107 H Lactic Acid Calcium 7.5 L Phosphorus Magnesium 1.60 L AST ALT Alkaline Phosphatase Lactate Dehydrogenase Troponin T C-Reactive Protein NT-Pro-B Natriuret Pep Total Protein Albumin LDL Cholesterol Direct Vitamin B12 Fluid Glucose Fluid Total Protein Vancomycin Trough Crossmatch 12/01/21 12/02/21 12/02/21 17:40 00:07 04:20 WBC RBC 2.92 L Hgb 7.7 L Hct 24.3 L MCV MCH 26 L MCHC RDW 20.5 H Plt Count Seg Neuts % (Manual) Lymphocytes % (Manual) Seg Neutrophils # Man Lymphocytes # (Manual) Monocytes # (Manual) PT INR D-Dimer ABG pH ABG pO2 ABG HCO3 ABG O2 Saturation ABG Base Excess ABG Hemoglobin Oxyhemoglobin Sodium Potassium Chloride Carbon Dioxide BUN Creatinine Glucose POC Glucose 123 H 110 H Lactic Acid Calcium Phosphorus Magnesium AST ALT Alkaline Phosphatase Lactate Dehydrogenase Troponin T C-Reactive Protein NT-Pro-B Natriuret Pep Total Protein Albumin LDL Cholesterol Direct Vitamin B12 Fluid Glucose Fluid Total Protein Vancomycin Trough Crossmatch 12/02/21 12/02/21 12/02/21 04:20 11:17 18:20 WBC RBC Hgb Hct MCV MCH MCHC RDW Plt Count Seg Neuts % (Manual) Lymphocytes % (Manual) Seg Neutrophils # Man Lymphocytes # (Manual) Monocytes # (Manual) PT INR D-Dimer ABG pH ABG pO2 ABG HCO3 ABG O2 Saturation ABG Base Excess ABG Hemoglobin Oxyhemoglobin Sodium 135 L Potassium Chloride Carbon Dioxide BUN 26 H Creatinine Glucose 121 H POC Glucose 117 H 113 H Lactic Acid Calcium 7.4 L Phosphorus Magnesium AST ALT Alkaline Phosphatase Lactate Dehydrogenase Troponin T C-Reactive Protein NT-Pro-B Natriuret Pep Total Protein Albumin LDL Cholesterol Direct Vitamin B12 Fluid Glucose Fluid Total Protein Vancomycin Trough Crossmatch 12/03/21 12/03/21 12/03/21 00:12 04:00 04:00 WBC RBC 2.99 L Hgb 7.8 L Hct 24.6 L MCV MCH 26 L MCHC RDW 20.2 H Plt Count Seg Neuts % (Manual) Lymphocytes % (Manual) Seg Neutrophils # Man Lymphocytes # (Manual) Monocytes # (Manual) PT INR D-Dimer ABG pH ABG pO2 ABG HCO3 ABG O2 Saturation ABG Base Excess ABG Hemoglobin Oxyhemoglobin Sodium 136 L Potassium Chloride Carbon Dioxide BUN 27 H Creatinine Glucose 133 H POC Glucose 121 H Lactic Acid Calcium 7.5 L Phosphorus Magnesium AST ALT Alkaline Phosphatase Lactate Dehydrogenase Troponin T C-Reactive Protein NT-Pro-B Natriuret Pep Total Protein Albumin LDL Cholesterol Direct Vitamin B12 Fluid Glucose Fluid Total Protein Vancomycin Trough Crossmatch 12/03/21 12/03/21 12/03/21 06:30 11:13 16:00 WBC RBC Hgb Hct MCV MCH MCHC RDW Plt Count Seg Neuts % (Manual) Lymphocytes % (Manual) Seg Neutrophils # Man Lymphocytes # (Manual) Monocytes # (Manual) PT INR D-Dimer ABG pH ABG pO2 ABG HCO3 ABG O2 Saturation ABG Base Excess ABG Hemoglobin Oxyhemoglobin Sodium Potassium Chloride Carbon Dioxide BUN Creatinine Glucose POC Glucose 129 H 125 H 125 H Lactic Acid Calcium Phosphorus Magnesium AST ALT Alkaline Phosphatase Lactate Dehydrogenase Troponin T C-Reactive Protein NT-Pro-B Natriuret Pep Total Protein Albumin LDL Cholesterol Direct Vitamin B12 Fluid Glucose Fluid Total Protein Vancomycin Trough Crossmatch 12/03/21 12/04/21 12/04/21 23:32 04:00 05:36 WBC RBC Hgb Hct MCV MCH MCHC RDW Plt Count Seg Neuts % (Manual) Lymphocytes % (Manual) Seg Neutrophils # Man Lymphocytes # (Manual) Monocytes # (Manual) PT INR D-Dimer ABG pH ABG pO2 ABG HCO3 ABG O2 Saturation ABG Base Excess ABG Hemoglobin Oxyhemoglobin Sodium Potassium 3.5 L Chloride Carbon Dioxide BUN 26 H Creatinine 0.5 L Glucose 151 H POC Glucose 133 H 142 H Lactic Acid Calcium 8.3 L Phosphorus Magnesium AST ALT Alkaline Phosphatase Lactate Dehydrogenase Troponin T C-Reactive Protein NT-Pro-B Natriuret Pep Total Protein Albumin LDL Cholesterol Direct Vitamin B12 Fluid Glucose Fluid Total Protein Vancomycin Trough Crossmatch 12/04/21 12/04/21 12/05/21 11:24 15:58 04:36 WBC RBC Hgb Hct MCV MCH MCHC RDW Plt Count Seg Neuts % (Manual) Lymphocytes % (Manual) Seg Neutrophils # Man Lymphocytes # (Manual) Monocytes # (Manual) PT INR D-Dimer ABG pH ABG pO2 ABG HCO3 ABG O2 Saturation ABG Base Excess ABG Hemoglobin Oxyhemoglobin Sodium Potassium Chloride Carbon Dioxide BUN 21 H Creatinine 0.5 L Glucose 119 H POC Glucose 130 H 111 H Lactic Acid Calcium 8.3 L Phosphorus Magnesium AST ALT Alkaline Phosphatase Lactate Dehydrogenase Troponin T C-Reactive Protein NT-Pro-B Natriuret Pep Total Protein Albumin LDL Cholesterol Direct Vitamin B12 Fluid Glucose Fluid Total Protein Vancomycin Trough Crossmatch 12/05/21 12/05/21 12/05/21 05:15 10:40 11:12 WBC RBC 2.98 L Hgb 8.1 L Hct 24.6 L MCV MCH 27 L MCHC RDW 20.8 H Plt Count Seg Neuts % (Manual) Lymphocytes % (Manual) Seg Neutrophils # Man Lymphocytes # (Manual) Monocytes # (Manual) PT INR D-Dimer ABG pH ABG pO2 ABG HCO3 ABG O2 Saturation ABG Base Excess ABG Hemoglobin Oxyhemoglobin Sodium Potassium Chloride Carbon Dioxide BUN Creatinine Glucose POC Glucose 107 H 110 H Lactic Acid Calcium Phosphorus Magnesium AST ALT Alkaline Phosphatase Lactate Dehydrogenase Troponin T C-Reactive Protein NT-Pro-B Natriuret Pep Total Protein Albumin LDL Cholesterol Direct Vitamin B12 Fluid Glucose Fluid Total Protein Vancomycin Trough Crossmatch 12/05/21 12/06/21 12/06/21 23:39 04:25 04:25 WBC RBC 2.95 L Hgb 7.9 L Hct 24.7 L MCV MCH 27 L MCHC RDW 20.9 H Plt Count Seg Neuts % (Manual) Lymphocytes % (Manual) Seg Neutrophils # Man Lymphocytes # (Manual) Monocytes # (Manual) PT INR D-Dimer ABG pH ABG pO2 ABG HCO3 ABG O2 Saturation ABG Base Excess ABG Hemoglobin Oxyhemoglobin Sodium Potassium Chloride Carbon Dioxide BUN 22 H Creatinine 0.5 L Glucose 136 H POC Glucose 118 H Lactic Acid Calcium 8.2 L Phosphorus Magnesium AST ALT Alkaline Phosphatase Lactate Dehydrogenase Troponin T C-Reactive Protein NT-Pro-B Natriuret Pep Total Protein Albumin LDL Cholesterol Direct Vitamin B12 Fluid Glucose Fluid Total Protein Vancomycin Trough Crossmatch 12/06/21 12/06/21 12/07/21 05:28 11:27 04:00 WBC RBC Hgb 7.2 L Hct 21.8 L MCV MCH MCHC RDW Plt Count Seg Neuts % (Manual) Lymphocytes % (Manual) Seg Neutrophils # Man Lymphocytes # (Manual) Monocytes # (Manual) PT INR D-Dimer ABG pH ABG pO2 ABG HCO3 ABG O2 Saturation ABG Base Excess ABG Hemoglobin Oxyhemoglobin Sodium Potassium Chloride Carbon Dioxide BUN Creatinine Glucose POC Glucose 142 H 126 H Lactic Acid Calcium Phosphorus Magnesium AST ALT Alkaline Phosphatase Lactate Dehydrogenase Troponin T C-Reactive Protein NT-Pro-B Natriuret Pep Total Protein Albumin LDL Cholesterol Direct Vitamin B12 Fluid Glucose Fluid Total Protein Vancomycin Trough Crossmatch 12/07/21 12/07/21 12/07/21 04:00 05:30 11:12 WBC RBC Hgb Hct MCV MCH MCHC RDW Plt Count Seg Neuts % (Manual) Lymphocytes % (Manual) Seg Neutrophils # Man Lymphocytes # (Manual) Monocytes # (Manual) PT INR D-Dimer ABG pH ABG pO2 ABG HCO3 ABG O2 Saturation ABG Base Excess ABG Hemoglobin Oxyhemoglobin Sodium Potassium Chloride Carbon Dioxide BUN 22 H Creatinine Glucose 119 H POC Glucose 121 H 124 H Lactic Acid Calcium 8.0 L Phosphorus Magnesium AST ALT Alkaline Phosphatase Lactate Dehydrogenase Troponin T C-Reactive Protein NT-Pro-B Natriuret Pep Total Protein Albumin LDL Cholesterol Direct Vitamin B12 Fluid Glucose Fluid Total Protein Vancomycin Trough Crossmatch 12/08/21 12/08/21 12/08/21 04:00 04:00 05:39 WBC RBC 2.81 L Hgb 7.7 L Hct 23.5 L MCV MCH MCHC RDW 21.2 H Plt Count Seg Neuts % (Manual) Lymphocytes % (Manual) Seg Neutrophils # Man Lymphocytes # (Manual) Monocytes # (Manual) PT INR D-Dimer ABG pH ABG pO2 ABG HCO3 ABG O2 Saturation ABG Base Excess ABG Hemoglobin Oxyhemoglobin Sodium 135 L Potassium Chloride Carbon Dioxide BUN 23 H Creatinine Glucose 109 H POC Glucose 112 H Lactic Acid Calcium Phosphorus Magnesium AST ALT Alkaline Phosphatase Lactate Dehydrogenase Troponin T C-Reactive Protein NT-Pro-B Natriuret Pep Total Protein Albumin LDL Cholesterol Direct Vitamin B12 Fluid Glucose Fluid Total Protein Vancomycin Trough Crossmatch 12/08/21 12/09/21 12/09/21 11:03 04:20 04:20 WBC RBC 2.67 L Hgb 7.6 L Hct 22.1 L MCV MCH MCHC RDW 20.8 H Plt Count Seg Neuts % (Manual) Lymphocytes % (Manual) Seg Neutrophils # Man Lymphocytes # (Manual) Monocytes # (Manual) PT INR D-Dimer ABG pH ABG pO2 ABG HCO3 ABG O2 Saturation ABG Base Excess ABG Hemoglobin Oxyhemoglobin Sodium 135 L Potassium Chloride 97.8 L Carbon Dioxide BUN 26 H Creatinine Glucose 119 H POC Glucose 108 H Lactic Acid Calcium 7.7 L Phosphorus Magnesium AST ALT Alkaline Phosphatase Lactate Dehydrogenase Troponin T C-Reactive Protein NT-Pro-B Natriuret Pep Total Protein Albumin LDL Cholesterol Direct Vitamin B12 Fluid Glucose Fluid Total Protein Vancomycin Trough Crossmatch 12/09/21 12/10/21 12/10/21 11:26 04:33 11:12 WBC RBC Hgb Hct MCV MCH MCHC RDW Plt Count Seg Neuts % (Manual) Lymphocytes % (Manual) Seg Neutrophils # Man Lymphocytes # (Manual) Monocytes # (Manual) PT INR D-Dimer ABG pH ABG pO2 ABG HCO3 ABG O2 Saturation ABG Base Excess ABG Hemoglobin Oxyhemoglobin Sodium 136 L Potassium Chloride Carbon Dioxide BUN 27 H Creatinine Glucose 117 H POC Glucose 110 H 117 H Lactic Acid Calcium 8.2 L Phosphorus Magnesium AST ALT Alkaline Phosphatase Lactate Dehydrogenase Troponin T C-Reactive Protein NT-Pro-B Natriuret Pep Total Protein Albumin LDL Cholesterol Direct Vitamin B12 Fluid Glucose Fluid Total Protein Vancomycin Trough Crossmatch 12/10/21 12/10/21 12/11/21 16:02 23:31 04:35 WBC RBC 2.57 L Hgb 7.0 L Hct 21.4 L MCV MCH 27 L MCHC RDW 21.1 H Plt Count Seg Neuts % (Manual) Lymphocytes % (Manual) Seg Neutrophils # Man Lymphocytes # (Manual) Monocytes # (Manual) PT INR D-Dimer ABG pH ABG pO2 ABG HCO3 ABG O2 Saturation ABG Base Excess ABG Hemoglobin Oxyhemoglobin Sodium Potassium Chloride Carbon Dioxide BUN Creatinine Glucose POC Glucose 137 H 111 H Lactic Acid Calcium Phosphorus Magnesium AST ALT Alkaline Phosphatase Lactate Dehydrogenase Troponin T C-Reactive Protein NT-Pro-B Natriuret Pep Total Protein Albumin LDL Cholesterol Direct Vitamin B12 Fluid Glucose Fluid Total Protein Vancomycin Trough Crossmatch 12/11/21 12/11/21 12/11/21 04:35 12:46 16:07 WBC RBC Hgb Hct MCV MCH MCHC RDW Plt Count Seg Neuts % (Manual) Lymphocytes % (Manual) Seg Neutrophils # Man Lymphocytes # (Manual) Monocytes # (Manual) PT INR D-Dimer ABG pH ABG pO2 ABG HCO3 ABG O2 Saturation ABG Base Excess ABG Hemoglobin Oxyhemoglobin Sodium 136 L Potassium Chloride Carbon Dioxide BUN 27 H Creatinine Glucose 112 H POC Glucose 115 H 111 H Lactic Acid Calcium 7.6 L Phosphorus Magnesium AST ALT Alkaline Phosphatase Lactate Dehydrogenase Troponin T C-Reactive Protein NT-Pro-B Natriuret Pep Total Protein Albumin LDL Cholesterol Direct Vitamin B12 Fluid Glucose Fluid Total Protein Vancomycin Trough Crossmatch 12/11/21 12/12/21 12/12/21 23:42 04:30 04:30 WBC RBC 2.60 L Hgb 7.1 L Hct 21.5 L MCV MCH 27 L MCHC RDW 20.3 H Plt Count Seg Neuts % (Manual) Lymphocytes % (Manual) Seg Neutrophils # Man Lymphocytes # (Manual) Monocytes # (Manual) PT INR D-Dimer ABG pH ABG pO2 ABG HCO3 ABG O2 Saturation ABG Base Excess ABG Hemoglobin Oxyhemoglobin Sodium 135 L Potassium Chloride 97.9 L Carbon Dioxide BUN 26 H Creatinine 0.5 L Glucose 138 H POC Glucose 115 H Lactic Acid Calcium 8.2 L Phosphorus Magnesium AST ALT Alkaline Phosphatase Lactate Dehydrogenase Troponin T C-Reactive Protein NT-Pro-B Natriuret Pep Total Protein Albumin LDL Cholesterol Direct Vitamin B12 Fluid Glucose Fluid Total Protein Vancomycin Trough Crossmatch 12/12/21 12/12/21 12/12/21 04:30 05:10 11:51 WBC RBC Hgb Hct MCV MCH MCHC RDW Plt Count Seg Neuts % (Manual) Lymphocytes % (Manual) Seg Neutrophils # Man Lymphocytes # (Manual) Monocytes # (Manual) PT INR D-Dimer ABG pH ABG pO2 ABG HCO3 ABG O2 Saturation ABG Base Excess ABG Hemoglobin Oxyhemoglobin Sodium Potassium Chloride Carbon Dioxide BUN Creatinine Glucose POC Glucose 119 H 119 H Lactic Acid Calcium Phosphorus Magnesium AST ALT Alkaline Phosphatase Lactate Dehydrogenase Troponin T C-Reactive Protein NT-Pro-B Natriuret Pep Total Protein Albumin LDL Cholesterol Direct Vitamin B12 Fluid Glucose Fluid Total Protein Vancomycin Trough Crossmatch See Detail 12/13/21 12/13/21 12/13/21 00:52 04:00 04:00 WBC RBC 2.73 L Hgb 7.4 L Hct 22.8 L MCV MCH 27 L MCHC RDW 20.5 H Plt Count Seg Neuts % (Manual) Lymphocytes % (Manual) Seg Neutrophils # Man Lymphocytes # (Manual) Monocytes # (Manual) PT INR D-Dimer ABG pH ABG pO2 ABG HCO3 ABG O2 Saturation ABG Base Excess ABG Hemoglobin Oxyhemoglobin Sodium 134 L Potassium Chloride 96.7 L Carbon Dioxide BUN 23 H Creatinine 0.5 L Glucose 131 H POC Glucose 131 H Lactic Acid Calcium 8.1 L Phosphorus Magnesium AST ALT Alkaline Phosphatase Lactate Dehydrogenase Troponin T C-Reactive Protein NT-Pro-B Natriuret Pep Total Protein Albumin LDL Cholesterol Direct Vitamin B12 Fluid Glucose Fluid Total Protein Vancomycin Trough Crossmatch 12/13/21 12/13/21 12/13/21 05:23 12:11 17:18 WBC RBC Hgb Hct MCV MCH MCHC RDW Plt Count Seg Neuts % (Manual) Lymphocytes % (Manual) Seg Neutrophils # Man Lymphocytes # (Manual) Monocytes # (Manual) PT INR D-Dimer ABG pH ABG pO2 ABG HCO3 ABG O2 Saturation ABG Base Excess ABG Hemoglobin Oxyhemoglobin Sodium Potassium Chloride Carbon Dioxide BUN Creatinine Glucose POC Glucose 121 H 143 H 148 H Lactic Acid Calcium Phosphorus Magnesium AST ALT Alkaline Phosphatase Lactate Dehydrogenase Troponin T C-Reactive Protein NT-Pro-B Natriuret Pep Total Protein Albumin LDL Cholesterol Direct Vitamin B12 Fluid Glucose Fluid Total Protein Vancomycin Trough Crossmatch 12/14/21 12/14/21 12/14/21 00:54 04:20 04:20 WBC RBC 2.39 L Hgb 6.5 L Hct 20.3 L MCV MCH 27 L MCHC RDW 20.3 H Plt Count Seg Neuts % (Manual) Lymphocytes % (Manual) Seg Neutrophils # Man Lymphocytes # (Manual) Monocytes # (Manual) PT INR D-Dimer ABG pH ABG pO2 ABG HCO3 ABG O2 Saturation ABG Base Excess ABG Hemoglobin Oxyhemoglobin Sodium 130 L Potassium Chloride 93.5 L Carbon Dioxide BUN 25 H Creatinine Glucose 123 H POC Glucose 123 H Lactic Acid Calcium 8.0 L Phosphorus Magnesium AST ALT Alkaline Phosphatase Lactate Dehydrogenase Troponin T C-Reactive Protein NT-Pro-B Natriuret Pep Total Protein Albumin LDL Cholesterol Direct Vitamin B12 Fluid Glucose Fluid Total Protein Vancomycin Trough Crossmatch 12/14/21 12/14/21 12/14/21 05:06 08:17 10:30 WBC RBC Hgb Hct MCV MCH MCHC RDW Plt Count Seg Neuts % (Manual) Lymphocytes % (Manual) Seg Neutrophils # Man Lymphocytes # (Manual) Monocytes # (Manual) PT INR D-Dimer ABG pH ABG pO2 ABG HCO3 ABG O2 Saturation ABG Base Excess ABG Hemoglobin Oxyhemoglobin Sodium Potassium Chloride Carbon Dioxide BUN Creatinine Glucose POC Glucose 131 H 119 H Lactic Acid Calcium Phosphorus Magnesium AST ALT Alkaline Phosphatase Lactate Dehydrogenase Troponin T C-Reactive Protein NT-Pro-B Natriuret Pep Total Protein Albumin LDL Cholesterol Direct Vitamin B12 Fluid Glucose Fluid Total Protein Vancomycin Trough Crossmatch See Detail 12/14/21 12/14/21 12/14/21 12:15 16:37 23:27 WBC RBC Hgb Hct MCV MCH MCHC RDW Plt Count Seg Neuts % (Manual) Lymphocytes % (Manual) Seg Neutrophils # Man Lymphocytes # (Manual) Monocytes # (Manual) PT INR D-Dimer ABG pH ABG pO2 ABG HCO3 ABG O2 Saturation ABG Base Excess ABG Hemoglobin Oxyhemoglobin Sodium Potassium Chloride Carbon Dioxide BUN Creatinine Glucose POC Glucose 147 H 141 H 130 H Lactic Acid Calcium Phosphorus Magnesium AST ALT Alkaline Phosphatase Lactate Dehydrogenase Troponin T C-Reactive Protein NT-Pro-B Natriuret Pep Total Protein Albumin LDL Cholesterol Direct Vitamin B12 Fluid Glucose Fluid Total Protein Vancomycin Trough Crossmatch 12/15/21 12/15/21 12/15/21 05:00 07:00 07:00 WBC 12.3 H RBC 3.27 L Hgb 8.8 L Hct 27.5 L D MCV MCH 27 L MCHC RDW 19.0 H Plt Count Seg Neuts % (Manual) Lymphocytes % (Manual) Seg Neutrophils # Man Lymphocytes # (Manual) Monocytes # (Manual) PT INR D-Dimer ABG pH ABG pO2 ABG HCO3 ABG O2 Saturation ABG Base Excess ABG Hemoglobin Oxyhemoglobin Sodium 134 L Potassium Chloride 95.7 L Carbon Dioxide BUN 28 H Creatinine Glucose 129 H POC Glucose 129 H Lactic Acid Calcium 8.2 L Phosphorus Magnesium AST ALT Alkaline Phosphatase Lactate Dehydrogenase Troponin T C-Reactive Protein NT-Pro-B Natriuret Pep Total Protein Albumin LDL Cholesterol Direct Vitamin B12 Fluid Glucose Fluid Total Protein Vancomycin Trough Crossmatch 12/15/21 12/15/21 12/15/21 11:18 16:00 23:39 WBC RBC Hgb Hct MCV MCH MCHC RDW Plt Count Seg Neuts % (Manual) Lymphocytes % (Manual) Seg Neutrophils # Man Lymphocytes # (Manual) Monocytes # (Manual) PT INR D-Dimer ABG pH ABG pO2 ABG HCO3 ABG O2 Saturation ABG Base Excess ABG Hemoglobin Oxyhemoglobin Sodium Potassium Chloride Carbon Dioxide BUN Creatinine Glucose POC Glucose 139 H 137 H 146 H Lactic Acid Calcium Phosphorus Magnesium AST ALT Alkaline Phosphatase Lactate Dehydrogenase Troponin T C-Reactive Protein NT-Pro-B Natriuret Pep Total Protein Albumin LDL Cholesterol Direct Vitamin B12 Fluid Glucose Fluid Total Protein Vancomycin Trough Crossmatch 12/16/21 12/16/21 12/16/21 05:24 10:21 10:21 WBC 15.3 H RBC 3.24 L Hgb 8.9 L Hct 27.7 L MCV MCH MCHC RDW 19.0 H Plt Count Seg Neuts % (Manual) Lymphocytes % (Manual) Seg Neutrophils # Man Lymphocytes # (Manual) Monocytes # (Manual) PT INR D-Dimer ABG pH ABG pO2 ABG HCO3 ABG O2 Saturation ABG Base Excess ABG Hemoglobin Oxyhemoglobin Sodium 131 L Potassium 3.5 L Chloride 92.7 L Carbon Dioxide BUN 36 H Creatinine Glucose 160 H POC Glucose 121 H Lactic Acid Calcium Phosphorus Magnesium 1.60 L AST ALT Alkaline Phosphatase Lactate Dehydrogenase Troponin T C-Reactive Protein NT-Pro-B Natriuret Pep Total Protein Albumin LDL Cholesterol Direct Vitamin B12 Fluid Glucose Fluid Total Protein Vancomycin Trough Crossmatch 12/16/21 12/16/21 12/16/21 11:21 18:28 20:52 WBC RBC Hgb Hct MCV MCH MCHC RDW Plt Count Seg Neuts % (Manual) Lymphocytes % (Manual) Seg Neutrophils # Man Lymphocytes # (Manual) Monocytes # (Manual) PT INR D-Dimer ABG pH 7.479 H ABG pO2 79.3 L ABG HCO3 27.3 H ABG O2 Saturation ABG Base Excess 3.6 H ABG Hemoglobin 9.1 L Oxyhemoglobin 94.9 L Sodium Potassium Chloride Carbon Dioxide BUN Creatinine Glucose POC Glucose 153 H 132 H Lactic Acid Calcium Phosphorus Magnesium AST ALT Alkaline Phosphatase Lactate Dehydrogenase Troponin T C-Reactive Protein NT-Pro-B Natriuret Pep Total Protein Albumin LDL Cholesterol Direct Vitamin B12 Fluid Glucose Fluid Total Protein Vancomycin Trough Crossmatch 12/16/21 12/17/21 12/17/21 23:30 04:25 04:25 WBC 12.3 H RBC 2.16 L Hgb 6.0 L Hct 18.1 L* D MCV MCH MCHC RDW 19.4 H Plt Count Seg Neuts % (Manual) Lymphocytes % (Manual) Seg Neutrophils # Man Lymphocytes # (Manual) Monocytes # (Manual) PT INR D-Dimer ABG pH ABG pO2 ABG HCO3 ABG O2 Saturation ABG Base Excess ABG Hemoglobin Oxyhemoglobin Sodium 132 L Potassium 3.2 L Chloride 112.0 H Carbon Dioxide BUN 32 H Creatinine Glucose 122 H POC Glucose 137 H Lactic Acid Calcium 6.8 L D Phosphorus Magnesium AST ALT Alkaline Phosphatase Lactate Dehydrogenase Troponin T C-Reactive Protein NT-Pro-B Natriuret Pep Total Protein Albumin LDL Cholesterol Direct Vitamin B12 Fluid Glucose Fluid Total Protein Vancomycin Trough Crossmatch 12/17/21 12/17/21 12/17/21 05:30 11:49 14:45 WBC RBC Hgb 9.7 L D Hct MCV MCH MCHC RDW Plt Count Seg Neuts % (Manual) Lymphocytes % (Manual) Seg Neutrophils # Man Lymphocytes # (Manual) Monocytes # (Manual) PT INR D-Dimer ABG pH ABG pO2 ABG HCO3 ABG O2 Saturation ABG Base Excess ABG Hemoglobin Oxyhemoglobin Sodium Potassium Chloride Carbon Dioxide BUN Creatinine Glucose POC Glucose 137 H 143 H Lactic Acid Calcium Phosphorus Magnesium AST ALT Alkaline Phosphatase Lactate Dehydrogenase Troponin T C-Reactive Protein NT-Pro-B Natriuret Pep Total Protein Albumin LDL Cholesterol Direct Vitamin B12 Fluid Glucose Fluid Total Protein Vancomycin Trough Crossmatch 12/17/21 12/18/21 12/18/21 17:01 05:04 05:04 WBC 13.8 H RBC 3.44 L Hgb 9.9 L Hct 28.8 L MCV MCH MCHC RDW 18.1 H Plt Count Seg Neuts % (Manual) Lymphocytes % (Manual) Seg Neutrophils # Man Lymphocytes # (Manual) Monocytes # (Manual) PT INR D-Dimer ABG pH ABG pO2 ABG HCO3 ABG O2 Saturation ABG Base Excess ABG Hemoglobin Oxyhemoglobin Sodium 132 L Potassium Chloride 97.4 L Carbon Dioxide BUN 38 H Creatinine Glucose 134 H POC Glucose 132 H Lactic Acid Calcium Phosphorus Magnesium AST ALT Alkaline Phosphatase Lactate Dehydrogenase Troponin T C-Reactive Protein NT-Pro-B Natriuret Pep Total Protein Albumin LDL Cholesterol Direct Vitamin B12 Fluid Glucose Fluid Total Protein Vancomycin Trough Crossmatch 12/18/21 12/18/21 12/18/21 05:28 10:57 16:27 WBC RBC Hgb Hct MCV MCH MCHC RDW Plt Count Seg Neuts % (Manual) Lymphocytes % (Manual) Seg Neutrophils # Man Lymphocytes # (Manual) Monocytes # (Manual) PT INR D-Dimer ABG pH ABG pO2 ABG HCO3 ABG O2 Saturation ABG Base Excess ABG Hemoglobin Oxyhemoglobin Sodium Potassium Chloride Carbon Dioxide BUN Creatinine Glucose POC Glucose 118 H 132 H 130 H Lactic Acid Calcium Phosphorus Magnesium AST ALT Alkaline Phosphatase Lactate Dehydrogenase Troponin T C-Reactive Protein NT-Pro-B Natriuret Pep Total Protein Albumin LDL Cholesterol Direct Vitamin B12 Fluid Glucose Fluid Total Protein Vancomycin Trough Crossmatch 12/19/21 12/19/21 12/19/21 00:02 04:41 04:41 WBC 16.0 H RBC 3.45 L Hgb 9.7 L Hct 29.1 L MCV MCH MCHC RDW 17.8 H Plt Count Seg Neuts % (Manual) Lymphocytes % (Manual) Seg Neutrophils # Man Lymphocytes # (Manual) Monocytes # (Manual) PT INR D-Dimer ABG pH ABG pO2 ABG HCO3 ABG O2 Saturation ABG Base Excess ABG Hemoglobin Oxyhemoglobin Sodium 133 L Potassium Chloride 97.9 L Carbon Dioxide BUN 36 H Creatinine 0.5 L Glucose 126 H POC Glucose 127 H Lactic Acid Calcium 8.3 L Phosphorus Magnesium AST ALT Alkaline Phosphatase Lactate Dehydrogenase Troponin T C-Reactive Protein NT-Pro-B Natriuret Pep Total Protein Albumin LDL Cholesterol Direct Vitamin B12 Fluid Glucose Fluid Total Protein Vancomycin Trough Crossmatch 12/19/21 12/19/21 12/19/21 05:26 12:20 16:43 WBC RBC Hgb Hct MCV MCH MCHC RDW Plt Count Seg Neuts % (Manual) Lymphocytes % (Manual) Seg Neutrophils # Man Lymphocytes # (Manual) Monocytes # (Manual) PT INR D-Dimer ABG pH ABG pO2 ABG HCO3 ABG O2 Saturation ABG Base Excess ABG Hemoglobin Oxyhemoglobin Sodium Potassium Chloride Carbon Dioxide BUN Creatinine Glucose POC Glucose 119 H 145 H 126 H Lactic Acid Calcium Phosphorus Magnesium AST ALT Alkaline Phosphatase Lactate Dehydrogenase Troponin T C-Reactive Protein NT-Pro-B Natriuret Pep Total Protein Albumin LDL Cholesterol Direct Vitamin B12 Fluid Glucose Fluid Total Protein Vancomycin Trough Crossmatch 12/19/21 12/20/21 12/20/21 23:30 04:54 04:54 WBC 12.3 H RBC 3.54 L Hgb 10.0 L Hct 29.5 L MCV MCH MCHC RDW 17.8 H Plt Count Seg Neuts % (Manual) 88.0 H Lymphocytes % (Manual) 6.0 L Seg Neutrophils # Man 10.8 H Lymphocytes # (Manual) 0.7 L Monocytes # (Manual) PT INR D-Dimer ABG pH ABG pO2 ABG HCO3 ABG O2 Saturation ABG Base Excess ABG Hemoglobin Oxyhemoglobin Sodium 131 L Potassium Chloride 96.2 L Carbon Dioxide BUN 36 H Creatinine 0.5 L Glucose 130 H POC Glucose 117 H Lactic Acid Calcium Phosphorus Magnesium AST ALT Alkaline Phosphatase Lactate Dehydrogenase Troponin T C-Reactive Protein NT-Pro-B Natriuret Pep Total Protein Albumin LDL Cholesterol Direct Vitamin B12 Fluid Glucose Fluid Total Protein Vancomycin Trough Crossmatch 12/20/21 12/20/21 12/20/21 05:20 11:51 17:30 WBC RBC Hgb Hct MCV MCH MCHC RDW Plt Count Seg Neuts % (Manual) Lymphocytes % (Manual) Seg Neutrophils # Man Lymphocytes # (Manual) Monocytes # (Manual) PT INR D-Dimer ABG pH ABG pO2 ABG HCO3 ABG O2 Saturation ABG Base Excess ABG Hemoglobin Oxyhemoglobin Sodium Potassium Chloride Carbon Dioxide BUN Creatinine Glucose POC Glucose 126 H 119 H 127 H Lactic Acid Calcium Phosphorus Magnesium AST ALT Alkaline Phosphatase Lactate Dehydrogenase Troponin T C-Reactive Protein NT-Pro-B Natriuret Pep Total Protein Albumin LDL Cholesterol Direct Vitamin B12 Fluid Glucose Fluid Total Protein Vancomycin Trough Crossmatch 12/21/21 12/21/21 12/21/21 00:45 04:21 04:21 WBC RBC 3.47 L Hgb 9.4 L Hct 29.2 L MCV MCH 27 L MCHC RDW 18.1 H Plt Count Seg Neuts % (Manual) Lymphocytes % (Manual) Seg Neutrophils # Man Lymphocytes # (Manual) Monocytes # (Manual) PT INR D-Dimer ABG pH ABG pO2 ABG HCO3 ABG O2 Saturation ABG Base Excess ABG Hemoglobin Oxyhemoglobin Sodium 134 L Potassium Chloride Carbon Dioxide BUN 35 H Creatinine 0.5 L Glucose 122 H POC Glucose 125 H Lactic Acid Calcium 8.2 L Phosphorus Magnesium AST ALT Alkaline Phosphatase Lactate Dehydrogenase Troponin T C-Reactive Protein NT-Pro-B Natriuret Pep Total Protein Albumin LDL Cholesterol Direct Vitamin B12 Fluid Glucose Fluid Total Protein Vancomycin Trough Crossmatch 12/21/21 12/21/21 12/21/21 05:38 11:29 16:16 WBC RBC Hgb Hct MCV MCH MCHC RDW Plt Count Seg Neuts % (Manual) Lymphocytes % (Manual) Seg Neutrophils # Man Lymphocytes # (Manual) Monocytes # (Manual) PT INR D-Dimer ABG pH ABG pO2 ABG HCO3 ABG O2 Saturation ABG Base Excess ABG Hemoglobin Oxyhemoglobin Sodium Potassium Chloride Carbon Dioxide BUN Creatinine Glucose POC Glucose 127 H 121 H 113 H Lactic Acid Calcium Phosphorus Magnesium AST ALT Alkaline Phosphatase Lactate Dehydrogenase Troponin T C-Reactive Protein NT-Pro-B Natriuret Pep Total Protein Albumin LDL Cholesterol Direct Vitamin B12 Fluid Glucose Fluid Total Protein Vancomycin Trough Crossmatch 12/22/21 12/22/21 12/23/21 04:58 04:58 06:40 WBC 11.5 H RBC 3.43 L Hgb 9.8 L Hct 28.7 L MCV MCH MCHC RDW 18.5 H 17.9 H Plt Count Seg Neuts % (Manual) Lymphocytes % (Manual) Seg Neutrophils # Man Lymphocytes # (Manual) Monocytes # (Manual) PT INR D-Dimer ABG pH ABG pO2 ABG HCO3 ABG O2 Saturation ABG Base Excess ABG Hemoglobin Oxyhemoglobin Sodium 130 L Potassium Chloride 97.8 L Carbon Dioxide BUN 31 H Creatinine 0.5 L Glucose 122 H POC Glucose Lactic Acid Calcium 7.9 L Phosphorus Magnesium AST ALT Alkaline Phosphatase Lactate Dehydrogenase Troponin T C-Reactive Protein NT-Pro-B Natriuret Pep Total Protein Albumin LDL Cholesterol Direct Vitamin B12 Fluid Glucose Fluid Total Protein Vancomycin Trough Crossmatch 12/23/21 12/23/21 12/24/21 06:40 23:25 04:24 WBC 11.7 H RBC Hgb 9.8 L Hct MCV MCH 26 L MCHC RDW 18.1 H Plt Count Seg Neuts % (Manual) Lymphocytes % (Manual) Seg Neutrophils # Man Lymphocytes # (Manual) Monocytes # (Manual) PT INR D-Dimer ABG pH ABG pO2 ABG HCO3 ABG O2 Saturation ABG Base Excess ABG Hemoglobin Oxyhemoglobin Sodium 136 L Potassium Chloride Carbon Dioxide BUN 27 H Creatinine 0.4 L Glucose 107 H POC Glucose 110 H Lactic Acid Calcium 8.1 L Phosphorus Magnesium AST ALT Alkaline Phosphatase Lactate Dehydrogenase Troponin T C-Reactive Protein NT-Pro-B Natriuret Pep Total Protein Albumin LDL Cholesterol Direct Vitamin B12 Fluid Glucose Fluid Total Protein Vancomycin Trough Crossmatch 12/24/21 12/24/21 12/24/21 04:24 11:08 15:45 WBC RBC Hgb Hct MCV MCH MCHC RDW Plt Count Seg Neuts % (Manual) Lymphocytes % (Manual) Seg Neutrophils # Man Lymphocytes # (Manual) Monocytes # (Manual) PT INR D-Dimer ABG pH ABG pO2 ABG HCO3 ABG O2 Saturation ABG Base Excess ABG Hemoglobin Oxyhemoglobin Sodium 132 L Potassium Chloride Carbon Dioxide BUN 27 H Creatinine 0.3 L Glucose 108 H POC Glucose 116 H 107 H Lactic Acid Calcium Phosphorus Magnesium AST ALT Alkaline Phosphatase Lactate Dehydrogenase Troponin T C-Reactive Protein NT-Pro-B Natriuret Pep Total Protein Albumin LDL Cholesterol Direct Vitamin B12 Fluid Glucose Fluid Total Protein Vancomycin Trough Crossmatch 12/24/21 12/25/21 12/25/21 23:43 05:29 11:48 WBC RBC Hgb Hct MCV MCH MCHC RDW Plt Count Seg Neuts % (Manual) Lymphocytes % (Manual) Seg Neutrophils # Man Lymphocytes # (Manual) Monocytes # (Manual) PT INR D-Dimer ABG pH ABG pO2 ABG HCO3 ABG O2 Saturation ABG Base Excess ABG Hemoglobin Oxyhemoglobin Sodium Potassium Chloride Carbon Dioxide BUN Creatinine Glucose POC Glucose 123 H 107 H 119 H Lactic Acid Calcium Phosphorus Magnesium AST ALT Alkaline Phosphatase Lactate Dehydrogenase Troponin T C-Reactive Protein NT-Pro-B Natriuret Pep Total Protein Albumin LDL Cholesterol Direct Vitamin B12 Fluid Glucose Fluid Total Protein Vancomycin Trough Crossmatch 12/26/21 12/26/21 12/26/21 00:06 05:56 07:51 WBC 11.4 H RBC 3.40 L Hgb 9.3 L Hct 28.3 L MCV MCH 27 L MCHC RDW 18.2 H Plt Count Seg Neuts % (Manual) Lymphocytes % (Manual) Seg Neutrophils # Man Lymphocytes # (Manual) Monocytes # (Manual) PT INR D-Dimer ABG pH ABG pO2 ABG HCO3 ABG O2 Saturation ABG Base Excess ABG Hemoglobin Oxyhemoglobin Sodium Potassium Chloride Carbon Dioxide BUN Creatinine Glucose POC Glucose 133 H 107 H Lactic Acid Calcium Phosphorus Magnesium AST ALT Alkaline Phosphatase Lactate Dehydrogenase Troponin T C-Reactive Protein NT-Pro-B Natriuret Pep Total Protein Albumin LDL Cholesterol Direct Vitamin B12 Fluid Glucose Fluid Total Protein Vancomycin Trough Crossmatch 12/26/21 12/26/21 12/26/21 07:51 11:43 17:06 WBC RBC Hgb Hct MCV MCH MCHC RDW Plt Count Seg Neuts % (Manual) Lymphocytes % (Manual) Seg Neutrophils # Man Lymphocytes # (Manual) Monocytes # (Manual) PT INR D-Dimer ABG pH ABG pO2 ABG HCO3 ABG O2 Saturation ABG Base Excess ABG Hemoglobin Oxyhemoglobin Sodium 136 L Potassium Chloride Carbon Dioxide BUN 25 H Creatinine 0.3 L Glucose 131 H POC Glucose 119 H 128 H Lactic Acid Calcium Phosphorus Magnesium AST ALT Alkaline Phosphatase Lactate Dehydrogenase Troponin T C-Reactive Protein NT-Pro-B Natriuret Pep Total Protein Albumin LDL Cholesterol Direct Vitamin B12 Fluid Glucose Fluid Total Protein Vancomycin Trough Crossmatch 12/28/21 12/28/21 12/29/21 09:05 09:05 04:40 WBC RBC 3.19 L Hgb 8.9 L Hct 26.4 L MCV MCH 27 L MCHC RDW 18.4 H 17.9 H Plt Count Seg Neuts % (Manual) Lymphocytes % (Manual) Seg Neutrophils # Man Lymphocytes # (Manual) Monocytes # (Manual) PT INR D-Dimer ABG pH ABG pO2 ABG HCO3 ABG O2 Saturation ABG Base Excess ABG Hemoglobin Oxyhemoglobin Sodium 135 L Potassium Chloride 97.8 L Carbon Dioxide BUN 18 H Creatinine 0.3 L Glucose POC Glucose Lactic Acid Calcium Phosphorus Magnesium AST ALT Alkaline Phosphatase Lactate Dehydrogenase Troponin T C-Reactive Protein NT-Pro-B Natriuret Pep Total Protein Albumin LDL Cholesterol Direct Vitamin B12 Fluid Glucose Fluid Total Protein Vancomycin Trough Crossmatch 12/29/21 12/29/21 12/30/21 04:40 12:47 04:05 WBC RBC 3.29 L Hgb 8.7 L Hct 27.6 L MCV MCH 27 L MCHC RDW 17.6 H Plt Count Seg Neuts % (Manual) Lymphocytes % (Manual) Seg Neutrophils # Man Lymphocytes # (Manual) Monocytes # (Manual) PT INR D-Dimer ABG pH ABG pO2 ABG HCO3 ABG O2 Saturation ABG Base Excess ABG Hemoglobin Oxyhemoglobin Sodium 136 L Potassium Chloride Carbon Dioxide BUN Creatinine 0.3 L Glucose POC Glucose 67 L Lactic Acid Calcium 8.3 L Phosphorus Magnesium AST ALT Alkaline Phosphatase Lactate Dehydrogenase Troponin T C-Reactive Protein NT-Pro-B Natriuret Pep Total Protein Albumin LDL Cholesterol Direct Vitamin B12 Fluid Glucose Fluid Total Protein Vancomycin Trough Crossmatch 12/30/21 12/31/21 12/31/21 04:05 00:07 04:00 WBC RBC 3.05 L Hgb 8.5 L Hct 25.5 L MCV MCH MCHC RDW 18.2 H Plt Count Seg Neuts % (Manual) Lymphocytes % (Manual) Seg Neutrophils # Man Lymphocytes # (Manual) Monocytes # (Manual) PT INR D-Dimer ABG pH ABG pO2 ABG HCO3 ABG O2 Saturation ABG Base Excess ABG Hemoglobin Oxyhemoglobin Sodium 136 L Potassium 3.5 L Chloride Carbon Dioxide BUN Creatinine 0.4 L Glucose POC Glucose 139 H Lactic Acid Calcium Phosphorus Magnesium 1.50 L AST ALT Alkaline Phosphatase Lactate Dehydrogenase Troponin T C-Reactive Protein NT-Pro-B Natriuret Pep Total Protein Albumin LDL Cholesterol Direct Vitamin B12 Fluid Glucose Fluid Total Protein Vancomycin Trough Crossmatch 12/31/21 12/31/21 12/31/21 04:00 04:52 11:23 WBC RBC Hgb Hct MCV MCH MCHC RDW Plt Count Seg Neuts % (Manual) Lymphocytes % (Manual) Seg Neutrophils # Man Lymphocytes # (Manual) Monocytes # (Manual) PT INR D-Dimer ABG pH ABG pO2 ABG HCO3 ABG O2 Saturation ABG Base Excess ABG Hemoglobin Oxyhemoglobin Sodium Potassium Chloride Carbon Dioxide BUN 19 H Creatinine 0.4 L Glucose 116 H POC Glucose 121 H 116 H Lactic Acid Calcium Phosphorus Magnesium AST ALT Alkaline Phosphatase Lactate Dehydrogenase Troponin T C-Reactive Protein NT-Pro-B Natriuret Pep Total Protein Albumin LDL Cholesterol Direct Vitamin B12 Fluid Glucose Fluid Total Protein Vancomycin Trough Crossmatch 12/31/21 01/01/22 01/01/22 17:42 04:31 04:31 WBC RBC 2.83 L Hgb 7.7 L Hct 23.2 L MCV MCH 27 L MCHC RDW 18.3 H Plt Count Seg Neuts % (Manual) Lymphocytes % (Manual) Seg Neutrophils # Man Lymphocytes # (Manual) Monocytes # (Manual) PT INR D-Dimer ABG pH ABG pO2 ABG HCO3 ABG O2 Saturation ABG Base Excess ABG Hemoglobin Oxyhemoglobin Sodium 135 L Potassium Chloride 97.7 L Carbon Dioxide BUN 21 H Creatinine 0.5 L Glucose 127 H POC Glucose 107 H Lactic Acid Calcium 8.0 L Phosphorus Magnesium AST ALT Alkaline Phosphatase Lactate Dehydrogenase Troponin T C-Reactive Protein NT-Pro-B Natriuret Pep Total Protein Albumin LDL Cholesterol Direct Vitamin B12 Fluid Glucose Fluid Total Protein Vancomycin Trough Crossmatch 01/01/22 01/01/22 01/01/22 05:24 11:25 18:11 WBC RBC Hgb Hct MCV MCH MCHC RDW Plt Count Seg Neuts % (Manual) Lymphocytes % (Manual) Seg Neutrophils # Man Lymphocytes # (Manual) Monocytes # (Manual) PT INR D-Dimer ABG pH ABG pO2 ABG HCO3 ABG O2 Saturation ABG Base Excess ABG Hemoglobin Oxyhemoglobin Sodium Potassium Chloride Carbon Dioxide BUN Creatinine Glucose POC Glucose 124 H 140 H 144 H Lactic Acid Calcium Phosphorus Magnesium AST ALT Alkaline Phosphatase Lactate Dehydrogenase Troponin T C-Reactive Protein NT-Pro-B Natriuret Pep Total Protein Albumin LDL Cholesterol Direct Vitamin B12 Fluid Glucose Fluid Total Protein Vancomycin Trough Crossmatch 01/01/22 01/02/22 01/02/22 23:26 04:01 04:01 WBC RBC 2.57 L Hgb 7.1 L Hct 21.5 L MCV MCH MCHC RDW 18.1 H Plt Count Seg Neuts % (Manual) Lymphocytes % (Manual) Seg Neutrophils # Man Lymphocytes # (Manual) Monocytes # (Manual) PT INR D-Dimer ABG pH ABG pO2 ABG HCO3 ABG O2 Saturation ABG Base Excess ABG Hemoglobin Oxyhemoglobin Sodium 131 L Potassium 3.5 L Chloride 94.8 L Carbon Dioxide BUN 27 H Creatinine Glucose 121 H POC Glucose 121 H Lactic Acid Calcium Phosphorus Magnesium AST ALT Alkaline Phosphatase Lactate Dehydrogenase Troponin T C-Reactive Protein NT-Pro-B Natriuret Pep Total Protein Albumin LDL Cholesterol Direct Vitamin B12 Fluid Glucose Fluid Total Protein Vancomycin Trough Crossmatch 01/02/22 01/02/22 01/02/22 05:30 11:10 16:08 WBC RBC Hgb Hct MCV MCH MCHC RDW Plt Count Seg Neuts % (Manual) Lymphocytes % (Manual) Seg Neutrophils # Man Lymphocytes # (Manual) Monocytes # (Manual) PT INR D-Dimer ABG pH ABG pO2 ABG HCO3 ABG O2 Saturation ABG Base Excess ABG Hemoglobin Oxyhemoglobin Sodium Potassium Chloride Carbon Dioxide BUN Creatinine Glucose POC Glucose 124 H 117 H 130 H Lactic Acid Calcium Phosphorus Magnesium AST ALT Alkaline Phosphatase Lactate Dehydrogenase Troponin T C-Reactive Protein NT-Pro-B Natriuret Pep Total Protein Albumin LDL Cholesterol Direct Vitamin B12 Fluid Glucose Fluid Total Protein Vancomycin Trough Crossmatch 01/02/22 01/02/22 01/03/22 17:30 23:26 04:53 WBC RBC 2.82 L Hgb 7.7 L Hct 23.4 L MCV MCH 27 L MCHC RDW 18.0 H Plt Count Seg Neuts % (Manual) Lymphocytes % (Manual) Seg Neutrophils # Man Lymphocytes # (Manual) Monocytes # (Manual) PT INR D-Dimer ABG pH ABG pO2 ABG HCO3 ABG O2 Saturation ABG Base Excess ABG Hemoglobin Oxyhemoglobin Sodium Potassium Chloride Carbon Dioxide BUN Creatinine Glucose POC Glucose 114 H Lactic Acid Calcium Phosphorus Magnesium AST ALT Alkaline Phosphatase Lactate Dehydrogenase Troponin T C-Reactive Protein NT-Pro-B Natriuret Pep Total Protein Albumin LDL Cholesterol Direct Vitamin B12 Fluid Glucose Fluid Total Protein Vancomycin Trough 22.8 H Crossmatch 01/03/22 01/03/22 01/03/22 04:53 06:23 17:35 WBC RBC Hgb Hct MCV MCH MCHC RDW Plt Count Seg Neuts % (Manual) Lymphocytes % (Manual) Seg Neutrophils # Man Lymphocytes # (Manual) Monocytes # (Manual) PT INR D-Dimer ABG pH ABG pO2 ABG HCO3 ABG O2 Saturation ABG Base Excess ABG Hemoglobin Oxyhemoglobin Sodium 133 L Potassium Chloride 96.2 L Carbon Dioxide BUN 30 H Creatinine Glucose 107 H POC Glucose 122 H 107 H Lactic Acid Calcium Phosphorus Magnesium AST ALT Alkaline Phosphatase Lactate Dehydrogenase Troponin T C-Reactive Protein NT-Pro-B Natriuret Pep Total Protein Albumin LDL Cholesterol Direct Vitamin B12 Fluid Glucose Fluid Total Protein Vancomycin Trough Crossmatch 01/04/22 01/04/22 01/04/22 04:00 12:32 16:45 WBC RBC Hgb Hct MCV MCH MCHC RDW Plt Count Seg Neuts % (Manual) Lymphocytes % (Manual) Seg Neutrophils # Man Lymphocytes # (Manual) Monocytes # (Manual) PT INR D-Dimer ABG pH ABG pO2 ABG HCO3 ABG O2 Saturation ABG Base Excess ABG Hemoglobin Oxyhemoglobin Sodium 132 L Potassium Chloride 92.8 L Carbon Dioxide BUN 30 H Creatinine Glucose 115 H POC Glucose 111 H 111 H Lactic Acid Calcium Phosphorus Magnesium 1.60 L AST ALT Alkaline Phosphatase Lactate Dehydrogenase Troponin T C-Reactive Protein NT-Pro-B Natriuret Pep Total Protein Albumin LDL Cholesterol Direct Vitamin B12 Fluid Glucose Fluid Total Protein Vancomycin Trough Crossmatch 01/05/22 01/05/22 01/05/22 04:30 04:30 17:04 WBC RBC 3.11 L Hgb 8.4 L Hct 25.5 L MCV MCH 27 L MCHC RDW 17.6 H Plt Count Seg Neuts % (Manual) Lymphocytes % (Manual) Seg Neutrophils # Man Lymphocytes # (Manual) Monocytes # (Manual) PT INR D-Dimer ABG pH ABG pO2 ABG HCO3 ABG O2 Saturation ABG Base Excess ABG Hemoglobin Oxyhemoglobin Sodium 135 L Potassium Chloride 93.6 L Carbon Dioxide BUN 29 H Creatinine Glucose POC Glucose 67 L Lactic Acid Calcium Phosphorus Magnesium AST ALT Alkaline Phosphatase Lactate Dehydrogenase Troponin T C-Reactive Protein NT-Pro-B Natriuret Pep Total Protein Albumin LDL Cholesterol Direct Vitamin B12 Fluid Glucose Fluid Total Protein Vancomycin Trough Crossmatch 01/05/22 01/06/22 01/06/22 23:27 04:06 04:06 WBC RBC 2.89 L Hgb 7.7 L Hct 23.8 L MCV MCH 27 L MCHC RDW 18.0 H Plt Count Seg Neuts % (Manual) Lymphocytes % (Manual) Seg Neutrophils # Man Lymphocytes # (Manual) Monocytes # (Manual) PT 16.9 H INR 1.23 H D-Dimer ABG pH ABG pO2 ABG HCO3 ABG O2 Saturation ABG Base Excess ABG Hemoglobin Oxyhemoglobin Sodium Potassium Chloride Carbon Dioxide BUN Creatinine Glucose POC Glucose 110 H Lactic Acid Calcium Phosphorus Magnesium AST ALT Alkaline Phosphatase Lactate Dehydrogenase Troponin T C-Reactive Protein NT-Pro-B Natriuret Pep Total Protein Albumin LDL Cholesterol Direct Vitamin B12 Fluid Glucose Fluid Total Protein Vancomycin Trough Crossmatch 01/06/22 01/06/22 01/06/22 04:06 13:40 23:41 WBC RBC Hgb Hct MCV MCH MCHC RDW Plt Count Seg Neuts % (Manual) Lymphocytes % (Manual) Seg Neutrophils # Man Lymphocytes # (Manual) Monocytes # (Manual) PT INR D-Dimer ABG pH ABG pO2 ABG HCO3 ABG O2 Saturation ABG Base Excess ABG Hemoglobin Oxyhemoglobin Sodium 132 L Potassium Chloride 92.3 L Carbon Dioxide BUN 26 H Creatinine Glucose 111 H POC Glucose 120 H Lactic Acid Calcium Phosphorus Magnesium AST ALT Alkaline Phosphatase Lactate Dehydrogenase Troponin T C-Reactive Protein NT-Pro-B Natriuret Pep Total Protein Albumin LDL Cholesterol Direct Vitamin B12 Fluid Glucose 96 H Fluid Total Protein < 3.0 L Vancomycin Trough Crossmatch 01/07/22 01/07/22 01/07/22 05:20 11:30 17:00 WBC RBC Hgb Hct MCV MCH MCHC RDW Plt Count Seg Neuts % (Manual) Lymphocytes % (Manual) Seg Neutrophils # Man Lymphocytes # (Manual) Monocytes # (Manual) PT INR D-Dimer ABG pH ABG pO2 ABG HCO3 ABG O2 Saturation ABG Base Excess ABG Hemoglobin Oxyhemoglobin Sodium Potassium Chloride Carbon Dioxide BUN Creatinine Glucose POC Glucose 111 H 113 H 121 H Lactic Acid Calcium Phosphorus Magnesium AST ALT Alkaline Phosphatase Lactate Dehydrogenase Troponin T C-Reactive Protein NT-Pro-B Natriuret Pep Total Protein Albumin LDL Cholesterol Direct Vitamin B12 Fluid Glucose Fluid Total Protein Vancomycin Trough Crossmatch 01/07/22 01/08/22 01/08/22 23:41 11:26 16:23 WBC RBC Hgb Hct MCV MCH MCHC RDW Plt Count Seg Neuts % (Manual) Lymphocytes % (Manual) Seg Neutrophils # Man Lymphocytes # (Manual) Monocytes # (Manual) PT INR D-Dimer ABG pH ABG pO2 ABG HCO3 ABG O2 Saturation ABG Base Excess ABG Hemoglobin Oxyhemoglobin Sodium Potassium Chloride Carbon Dioxide BUN Creatinine Glucose POC Glucose 110 H 129 H 118 H Lactic Acid Calcium Phosphorus Magnesium AST ALT Alkaline Phosphatase Lactate Dehydrogenase Troponin T C-Reactive Protein NT-Pro-B Natriuret Pep Total Protein Albumin LDL Cholesterol Direct Vitamin B12 Fluid Glucose Fluid Total Protein Vancomycin Trough Crossmatch 01/09/22 01/10/22 01/10/22 18:13 00:27 04:00 WBC RBC Hgb Hct MCV MCH MCHC RDW Plt Count Seg Neuts % (Manual) Lymphocytes % (Manual) Seg Neutrophils # Man Lymphocytes # (Manual) Monocytes # (Manual) PT INR D-Dimer ABG pH ABG pO2 ABG HCO3 ABG O2 Saturation ABG Base Excess ABG Hemoglobin Oxyhemoglobin Sodium 133 L Potassium Chloride 92.6 L Carbon Dioxide 31 H BUN 29 H Creatinine 0.5 L Glucose 115 H POC Glucose 118 H 111 H Lactic Acid Calcium Phosphorus Magnesium AST ALT Alkaline Phosphatase Lactate Dehydrogenase Troponin T C-Reactive Protein NT-Pro-B Natriuret Pep Total Protein Albumin LDL Cholesterol Direct Vitamin B12 Fluid Glucose Fluid Total Protein Vancomycin Trough Crossmatch 01/10/22 01/11/22 01/11/22 05:47 05:10 11:14 WBC RBC Hgb Hct MCV MCH MCHC RDW Plt Count Seg Neuts % (Manual) Lymphocytes % (Manual) Seg Neutrophils # Man Lymphocytes # (Manual) Monocytes # (Manual) PT INR D-Dimer ABG pH ABG pO2 ABG HCO3 ABG O2 Saturation ABG Base Excess ABG Hemoglobin Oxyhemoglobin Sodium Potassium Chloride Carbon Dioxide BUN Creatinine Glucose POC Glucose 106 H 118 H 136 H Lactic Acid Calcium Phosphorus Magnesium AST ALT Alkaline Phosphatase Lactate Dehydrogenase Troponin T C-Reactive Protein NT-Pro-B Natriuret Pep Total Protein Albumin LDL Cholesterol Direct Vitamin B12 Fluid Glucose Fluid Total Protein Vancomycin Trough Crossmatch 01/11/22 01/11/22 01/12/22 17:14 23:52 05:39 WBC RBC Hgb Hct MCV MCH MCHC RDW Plt Count Seg Neuts % (Manual) Lymphocytes % (Manual) Seg Neutrophils # Man Lymphocytes # (Manual) Monocytes # (Manual) PT INR D-Dimer ABG pH ABG pO2 ABG HCO3 ABG O2 Saturation ABG Base Excess ABG Hemoglobin Oxyhemoglobin Sodium Potassium Chloride Carbon Dioxide BUN Creatinine Glucose POC Glucose 117 H 110 H 110 H Lactic Acid Calcium Phosphorus Magnesium AST ALT Alkaline Phosphatase Lactate Dehydrogenase Troponin T C-Reactive Protein NT-Pro-B Natriuret Pep Total Protein Albumin LDL Cholesterol Direct Vitamin B12 Fluid Glucose Fluid Total Protein Vancomycin Trough Crossmatch 01/13/22 01/13/22 01/14/22 11:15 17:21 05:33 WBC RBC Hgb Hct MCV MCH MCHC RDW Plt Count Seg Neuts % (Manual) Lymphocytes % (Manual) Seg Neutrophils # Man Lymphocytes # (Manual) Monocytes # (Manual) PT INR D-Dimer ABG pH ABG pO2 ABG HCO3 ABG O2 Saturation ABG Base Excess ABG Hemoglobin Oxyhemoglobin Sodium Potassium Chloride Carbon Dioxide BUN Creatinine Glucose POC Glucose 113 H 121 H 136 H Lactic Acid Calcium Phosphorus Magnesium AST ALT Alkaline Phosphatase Lactate Dehydrogenase Troponin T C-Reactive Protein NT-Pro-B Natriuret Pep Total Protein Albumin LDL Cholesterol Direct Vitamin B12 Fluid Glucose Fluid Total Protein Vancomycin Trough Crossmatch 01/14/22 01/15/22 01/15/22 11:28 00:13 05:24 WBC RBC Hgb Hct MCV MCH MCHC RDW Plt Count Seg Neuts % (Manual) Lymphocytes % (Manual) Seg Neutrophils # Man Lymphocytes # (Manual) Monocytes # (Manual) PT INR D-Dimer ABG pH ABG pO2 ABG HCO3 ABG O2 Saturation ABG Base Excess ABG Hemoglobin Oxyhemoglobin Sodium Potassium Chloride Carbon Dioxide BUN Creatinine Glucose POC Glucose 117 H 109 H 117 H Lactic Acid Calcium Phosphorus Magnesium AST ALT Alkaline Phosphatase Lactate Dehydrogenase Troponin T C-Reactive Protein NT-Pro-B Natriuret Pep Total Protein Albumin LDL Cholesterol Direct Vitamin B12 Fluid Glucose Fluid Total Protein Vancomycin Trough Crossmatch 01/15/22 01/15/22 01/15/22 11:38 14:36 17:05 WBC RBC 3.11 L Hgb 8.4 L Hct 25.7 L MCV MCH 27 L MCHC RDW 17.2 H Plt Count Seg Neuts % (Manual) 82.0 H Lymphocytes % (Manual) 11.0 L Seg Neutrophils # Man 8.8 H Lymphocytes # (Manual) Monocytes # (Manual) PT INR D-Dimer ABG pH ABG pO2 ABG HCO3 ABG O2 Saturation ABG Base Excess ABG Hemoglobin Oxyhemoglobin Sodium Potassium Chloride Carbon Dioxide BUN Creatinine Glucose POC Glucose 107 H 108 H Lactic Acid Calcium Phosphorus Magnesium AST ALT Alkaline Phosphatase Lactate Dehydrogenase Troponin T C-Reactive Protein NT-Pro-B Natriuret Pep Total Protein Albumin LDL Cholesterol Direct Vitamin B12 Fluid Glucose Fluid Total Protein Vancomycin Trough Crossmatch 01/15/22 01/15/22 01/15/22 21:07 Unknown Unknown WBC RBC 2.97 L Hgb 8.0 L Hct 24.3 L MCV MCH 27 L MCHC RDW 17.2 H Plt Count Seg Neuts % (Manual) Lymphocytes % (Manual) Seg Neutrophils # Man Lymphocytes # (Manual) Monocytes # (Manual) PT INR D-Dimer ABG pH ABG pO2 ABG HCO3 ABG O2 Saturation ABG Base Excess ABG Hemoglobin Oxyhemoglobin Sodium 131 L Potassium Chloride 93.1 L Carbon Dioxide BUN 27 H Creatinine Glucose 110 H POC Glucose Lactic Acid Calcium 8.3 L Phosphorus Magnesium AST ALT Alkaline Phosphatase Lactate Dehydrogenase Troponin T 0.088 H C-Reactive Protein NT-Pro-B Natriuret Pep Total Protein Albumin LDL Cholesterol Direct 44 L Vitamin B12 Fluid Glucose Fluid Total Protein Vancomycin Trough Crossmatch 01/15/22 01/16/22 01/16/22 Unknown 05:21 12:59 WBC RBC Hgb Hct MCV MCH MCHC RDW Plt Count Seg Neuts % (Manual) Lymphocytes % (Manual) Seg Neutrophils # Man Lymphocytes # (Manual) Monocytes # (Manual) PT INR D-Dimer ABG pH ABG pO2 ABG HCO3 ABG O2 Saturation ABG Base Excess ABG Hemoglobin Oxyhemoglobin Sodium 134 L 134 L Potassium 3.4 L Chloride 93.9 L 95.4 L Carbon Dioxide BUN 26 H 24 H Creatinine Glucose 168 H POC Glucose 159 H Lactic Acid Calcium 8.1 L Phosphorus Magnesium AST ALT Alkaline Phosphatase Lactate Dehydrogenase Troponin T 0.078 H C-Reactive Protein NT-Pro-B Natriuret Pep Total Protein Albumin LDL Cholesterol Direct Vitamin B12 Fluid Glucose Fluid Total Protein Vancomycin Trough Crossmatch 01/16/22 01/17/22 01/17/22 23:22 05:20 14:24 WBC RBC Hgb Hct MCV MCH MCHC RDW Plt Count Seg Neuts % (Manual) Lymphocytes % (Manual) Seg Neutrophils # Man Lymphocytes # (Manual) Monocytes # (Manual) PT INR D-Dimer ABG pH ABG pO2 55.0 L ABG HCO3 29.5 H ABG O2 Saturation 87.8 L ABG Base Excess 4.5 H ABG Hemoglobin 9.3 L Oxyhemoglobin 86.1 L Sodium Potassium Chloride Carbon Dioxide BUN Creatinine Glucose POC Glucose 113 H 111 H Lactic Acid Calcium Phosphorus Magnesium AST ALT Alkaline Phosphatase Lactate Dehydrogenase Troponin T C-Reactive Protein NT-Pro-B Natriuret Pep Total Protein Albumin LDL Cholesterol Direct Vitamin B12 Fluid Glucose Fluid Total Protein Vancomycin Trough Crossmatch 0401/18/22 01/18/22 17:14 05:39 11:53 WBC RBC Hgb Hct MCV MCH MCHC RDW Plt Count Seg Neuts % (Manual) Lymphocytes % (Manual) Seg Neutrophils # Man Lymphocytes # (Manual) Monocytes # (Manual) PT INR D-Dimer ABG pH ABG pO2 ABG HCO3 ABG O2 Saturation ABG Base Excess ABG Hemoglobin Oxyhemoglobin Sodium Potassium Chloride Carbon Dioxide BUN Creatinine Glucose POC Glucose 126 H 108 H 113 H Lactic Acid Calcium Phosphorus Magnesium AST ALT Alkaline Phosphatase Lactate Dehydrogenase Troponin T C-Reactive Protein NT-Pro-B Natriuret Pep Total Protein Albumin LDL Cholesterol Direct Vitamin B12 Fluid Glucose Fluid Total Protein Vancomycin Trough Crossmatch 01/18/22 12:50 WBC RBC Hgb Hct MCV MCH MCHC RDW Plt Count Seg Neuts % (Manual) Lymphocytes % (Manual) Seg Neutrophils # Man Lymphocytes # (Manual) Monocytes # (Manual) PT INR D-Dimer ABG pH ABG pO2 112.3 H ABG HCO3 30.9 H ABG O2 Saturation ABG Base Excess 5.8 H ABG Hemoglobin 8.8 L Oxyhemoglobin Sodium Potassium Chloride Carbon Dioxide BUN Creatinine Glucose POC Glucose Lactic Acid Calcium Phosphorus Magnesium AST ALT Alkaline Phosphatase Lactate Dehydrogenase Troponin T C-Reactive Protein NT-Pro-B Natriuret Pep Total Protein Albumin LDL Cholesterol Direct Vitamin B12 Fluid Glucose Fluid Total Protein Vancomycin Trough Crossmatch Allied health notes reviewed: nursing
[2022-01-18] MEDS: PRAVASTATIN 20 MG TAB FEEDTUBE SCH (22:25)
[2022-01-18] MEDS: traZODone 50 MG TAB PO SCH (22:25)
[2022-01-18] MEDS: MELATONIN 5 MG TAB PO SCH (22:26)
[2022-01-18] MEDS: ONDANSETRON 4 MG/2 ML INJ IV PRN (22:31)
[2022-01-19] MEDS: SUCRALFATE 1 GM/10 ML ORAL LIQD FEEDTUBE SCH ×5 (00:55→23:32)
--- NOTE | 2022-01-19 05:07 | XRay Report ---
CHEST 1 VIEW 01/19/2022 3:57 AM INDICATION / CLINICAL INFORMATION: pleural effusion. COMPARISON: 01/16/2022 FINDINGS: SUPPORT DEVICES: Stable, satisfactory device positioning. HEART / MEDIASTINUM: Stable cardiomegaly. LUNGS / PLEURA: Stable diffuse bilateral interstitial opacities and small pleural effusions. No pneum othorax. ADDITIONAL FINDINGS: No significant additional findings. IMPRESSION: 1. No adverse change from the prior exam. Signer Name: Ramana Grissom MD Signed: 01/19/2022 5:03 AM Workstation Name: [id number]
[2022-01-19 05:25] LABS: Basophils % (Auto) 0.8 % (0.0-1.8); Blood Urea Nitrogen 28 mg/dL (7-17); Calcium 8.7 mg/dL (8.4-10.2); Hemolysis Index 5; Lymphocytes % (Auto) 28.2 % (13.4-35.0); Mean Corpuscular HGB Conc 32 % (30-34); Monocytes % (Auto) 5.3 % (0.0-7.3); Platelet Count 222 K/mm3 (140-440); Red Blood Count 3.14 M/mm3 (3.65-5.03); Red Cell Distribution Width 18.2 % (13.2-15.2)
[2022-01-19 05:27] LABS: Basophils # (Auto) 0.1 K/mm3 (0.0-0.1); Eosinophils # (Auto) 0.4 K/mm3 (0.0-0.4); Eosinophils % (Auto) 3.8 % (0.0-4.3); Hemoglobin 8.4 gm/dl (10.1-14.3); Lymphocytes # (Auto) 2.8 K/mm3 (1.2-5.4); Mean Corpuscular Volume 83 fl (79-97); Monocytes # (Auto) 0.5 K/mm3 (0.0-0.8)
[2022-01-19 05:28] LABS: BUN/Creatinine Ratio 47
[2022-01-19] MEDS: LEVOTHYROXINE 125 MCG TAB FEEDTUBE SCH (05:36)
[2022-01-19] MEDS: HYDROcodone/ACETAMINOPHEN 10-325MG TAB FEEDTUBE SCH ×3 (08:47→19:37)
[2022-01-19] MEDS: MIDODRINE 5 MG TAB FEEDTUBE SCH ×3 (08:48→16:33)
[2022-01-19] MEDS: SPIRONOLACTONE 25 MG TAB FEEDTUBE SCH (09:26)
[2022-01-19] MEDS: METOPROLOL TARTRATE 25 MG TAB FEEDTUBE SCH ×2 (09:28→22:34)
[2022-01-19] MEDS: DOCUSATE SODIUM 100 MG/10 ML ORAL LIQD FEEDTUBE SCH ×2 (09:28→22:33)
[2022-01-19] MEDS: busPIRone 5 MG TAB FEEDTUBE SCH ×2 (09:28→22:34)
[2022-01-19] MEDS: GABAPENTIN 100 MG CAP FEEDTUBE SCH (09:28)
[2022-01-19] MEDS: FUROSEMIDE 20 MG TAB PO SCH (09:28)
[2022-01-19] MEDS: POLYETHYLENE GLYCOL 3350 17 GM POWDER FEEDTUBE SCH (09:29)
[2022-01-19] MEDS: QUEtiapine 25 MG TAB FEEDTUBE SCH ×2 (09:29→22:34)
[2022-01-19] MEDS: LANSOPRAZOLE 30 MG SOLUTAB FEEDTUBE SCH ×2 (09:29→22:34)
[2022-01-19] MEDS: SENNOSIDES ORAL LIQD 8.8 MG/5 ML ORAL LIQD FEEDTUBE SCH ×2 (09:29→22:33)
--- NOTE | 2022-01-19 12:12 | Progress Note ---
Assessment and Plan Assessment and plan: This is an 82-year-old female with DM, HTN , CHB s/p PPM, CAD s/p PCI and arthritis who presented to the emergency department on 11/04 for shortness of breath ongoing for the past 3 days, cough and according to family a fever of 102.2. Upon arrival of EMS patient was found to be tachypneic and hypoxic with SPO2 of 76% on room air which later improved to 88% on nonrebreather. Work-up in the emergency department included a CXR which showed bilateral interstitial pulmonary edema with bilateral pleural effusions and bibasilar opacities, leukocytosis and anemia with a hemoglobin of 6.1. Patient was admitted to the hospitalist service with acute anemia, acute hypoxic respiratory failure, bilateral pneumonia and COVID-19 PUI with consults to pulmonology, infectious disease and later cardiology. Patient was eventually intubated in the emergency department on 11/06. Hospital Course to date: 11/04/2021: Empiric therapy with iv levaquin/vancomycin. COVID PCR pending. Will consult ID. PCCM consulted, will follow recs. Hypotensive this AM, ordered bolus and fluids at 150 cc/hr. May require pressor support if bp does not improve. 11/05/2021: GBS on bcx +, currently on rocephin IV. Currently on bipap due to respiratory distress overnight. Worsening BL opacities on CXR. May be volume overload vs pneumonia. Unfortunately bp too low for lasix at this point. WIll continue levophed and bipap. Once able to tolerate, may do trial of albumin/lasix. Call attempt made to Niraj, no response. Will try again tomorrow to update. 11/06/2021: Decompensated overnight requiring intubation. CXR shows worsening interstitial infiltrates. Currenlty on dopamine, levophed, vasopressin. PICC line ordered. Advised RN to place gamble for I/O monitoring. Would benefit from diuresis but very volume overloaded. Prognosis guarded 11/08: Off sedation this am, remains unresponsive only grimace to pain. Hold all sedatives agents for now, patient is off pressors this am. Hypernatremia from today's lab- D5W X1bag, and low K repleted, repeat lab in the am. Severe constipation also noted from KUB, BR added. 11/09: Sudden SPO2 drop in the 60s this am. Patient was manually bagged and deep suctioned. Patient is currently stable on the vent, repeat CXR with no significant change. D/w CCM Mucomyst and brochodilator added. Patient mentation is unchanged, continue to hold off on sedative agents. Neurology consulted. 11/10: Acute DVT noted on bilateral lower extremity Doppler ultrasound therefore she was started on Lovenox treatment dose. Failed SBT. Hypernatremia and hyperchloremia noted, free water flush adjusted. 11/11: Patient noted to be febrile with increasing of the cytosis, UA/BC sent and CXR ordered. ID escalated antibiotics to cefepime. CXR demonstrated mucous plug, bedside bronchoscopy was performed and O ETT was changed over bougie from 6 cm to 7.5. Patient was noted to have a pneumothorax postprocedure and chest tube was placed. Family updated by [facility]. Free water flush increased and will add Jaswant supplementation. 11/12: Patient not noted to follow commands, hypernatremia worsen/persist, increasing free water flush, potassium and magnesium and phosphorus repleted. Hemoglobin noted to be 7./24.5 from 7.03/12 yesterday. We will continue to trend and monitor. Vent changes per [facility]. Repeat CXR showed no residual pneumothorax. Consider waterseal tomorrow. Given persistent leukocytosis antibiotics escalated to cefepime per ID. 11/13: Remains on cefepime and vancomycin, vent changes per [facility]. Anemia noted and given 1 unit PRBC. And beta-charleen held in setting of Levophed drip infusing. Remains on fentanyl drip. 11/14: Patient put on CPAP trial by [facility], will continue chest tube until after extubation. Will rest on assist control. CT brain was cancelled by cigar packer and grader and reordered. 11/15: Patient removed chest tube overnight. Will obtain cxr. remains on low dose levo. CTH completed with no acute findings. RT to place on CPAP. 11/16: Hypernatremia/hyperchloremia noted on the increase of day water flushes. Anemia noted and ordered PRBC. asked RT to place on cpap but not done yet 11/17: Patient remains on the vent, awake and following commands. H&H stable s/p 2units PRBCs. GI on consult, no intervention at this time. Will continue protonix gtt and serial H&H Q6hrs. Keep patient NPO for now, D5w added for hypernatremia and NPO status. Plan for IVC filter placement today by Vascular. 11/18: Patient is s/p IVC filter. H&H continue to trend down, hbg 6.1 this am, 1 unit of PRBCs ordered. Plan for possible EGD today by GI. Keep patient NPO, continue PPI drip and serial H&H Q6hrs. Electrolytes repleted, repeat lab in the am 11/19: S/p EGD- larger duodenal ulcer noted, see operative note. GI recommendations noted also noted. H&H stable this am. Keep patient on protonix gtt for now. Will keep patient NPO, continue IVF and serial H&H for now. Electrolytes repleted, repeat labs in the am 11/20: Very agitated and restless this am, fentanyl gtt resumed. Patient remains on protonix gtt, H&H remains stable. Will switch protonix gtt to IV BID, continue carafate and okay to resume meds at this time. Will F/u with GI to see if TF can be resumed. Gamble was reinserted overnight for retention. Electrolytes repleted, repeat in the am. Plan for possible PST today for possible extubation per CCM. 11/21: Patient is now on seroquel and patient's home buspar resumed. Patient more calm this morning, fentanyl gtt is off. H&H remains stable and patient is tolerating TF. Patient had a runs of Vtach/PVCs this am, BB added per Cardio. Continue daily PS and wean trial for possible extubation. 11/22: Back on fentanyl gtt overnight , RASS o to -1, following commands. Patient failed PST this am due to increased work of breathing and low SPO2, ABG pending. Patient is also with worsen pitting edema, lasix is still on hold. Will discuss with cardio and CCM to possibly resume lasix. 11/23: MARIA DEL CARMEN overnight. Patient failed PST again this am. Per CCM plan for possible trach and PEG, hold off on IV lasix for now. General surgery consulted and family is aware of possible Trach and PEG. 11/24: Trach/PEG pending this week, continue SBT/SAT as tolerated. No acute events reported overnight. 11/25: Patient was n.p.o. overnight and will remain n.p.o. tonight for trach/PEG tomorrow morning. She failed to support trial again. KUB obtained due to distended belly. 11/26: Patient scheduled for tracheostomy and PEG tube placement today, has been n.p.o. since midnight. No acute events reported overnight. [facility] ordered simethicone scheduled. 11/27: No acute events reported overnight, patient received trach/PEG yesterday. Has been on feedings since last night. Still awaiting LTAC placement. 11/28: Patient magnesium repleted, repeat a.m. labs, SBT 11/29: Patient complains of chest pain but ECG obtained which showed no acute findings, ordered troponin. Patient failed CPAP yesterday and was trialed again today. levophed was restarted but will aggressively wean 11/30: Patient failed SBT. Continue supportive care. Started gabapentin today 12/01: MARIA DEL CARMEN overnight. Continue daily PST. Case management to arrange possible placement 12/02: Report of dark stools overnight, patient is hemodynamically stable. H&H stable, patient is on PPI. Will continue to trend H&H. Continue daily PST as tolerated. Awaiting LTAC vs SNF placement. 12/03: Hypotensive overnight, requiring low dose pressors. S/p X3 days of gentle diurese. Will continue to monitor, wean off pressors as tolerated for MAP of 65. Patient Failed PST yesterday, case management to follow up with insurance for po ssible LTAC placement. Continue daily PST as tolerated. PT eval and treat ordered. 12/04: Increased agitation and anxiety overnight, remains on buspar and seroquel, trazadone added to promote rest. Patient is now working with PT, keep patient engage and awake during the day so she can rest at night. No BM for over 5 days, BR was adjusted. Patient did not tolerate PST again yesterday, continue daily PST as tolerated. Continue to titrate pressor for MAP above 65. Pending possible LTAC placement, case management to arrange. 12/05: Still not getting much rest overnight, will add melatonin for sleep. Continue to engage patient during the day and promote rest at night. TF was held due to concern for possible bleeding, H&H remains stable and stools normal this am. Resume TF and continue PPI and carafate. Remains on low dose levophed, titrate as tolerated. Continue daily PST. Possible LTAC placement, awaiting approval. 12/06: MARIA DEL CARMEN overnight. Patient rested overnight. Continue supportive measures. Daily PST as tolerated. Awaiting possible LTAC placement 12/07: MARIA DEL CARMEN overnight. Plan for Tpiece trial today. Continue current supportive measures. Possible LTAC placement 12/08: Patient placed on pressure support trial again today, started on Xanax, no acute events reported overnight. Awaiting insurance approval for LTAC. 12/09: Levophed discontinued, LTAC transfer denied, started on midodrine and Lasix, ultrasound chest pending, started on Xanax 0.[address] De León updated family at bedside today. Started on Dilaudid every 3 hours as needed. 12/10: Patient placed on CPAP trial this morning, no acute events reported overnight. Will order ultrasound-guided thoracentesis. 12/11: Patient had a thoracentesis today, will decrease Xanax dosage and continue midodrine and diuresing. Patient failed CPAP today. 12/12: Patient not tolerate CPAP trials today, no acute events reported overnight 12/13: No acute events overnight. continue PSV trials as tolerated. Daughter up dated at bedside 12/14: Patient noted to be anemic today, ordered gastric occult. Patient seems to be oversedated therefore Xanax changed to as needed and fentanyl patch discontinued. We will continue to monitor hyponatremia. 12/15: MARIA DEL CARMEN overnight. s/p 1unit of PRBCs, H&H stable this am, no signs of any active bleeding. Continue daily PST as tolerated. Awaiting placement. 12/16: Hypertensive this am, Midodrine decreased. Continue daily PST. MARIA DEL CARMEN overnight 12/17: Patient Hgb dropped to 6 this am, no s/s of any active bleeding, VSS. Patient received 1unit of PRBC, will continue to trend H&H. Patient was pancultured and back on IV Abx due to persistent fevers yesterday. ID is also back on the case. Continue IV Abx per ID and f/u on cultures data for sensitivity. Patient also failed PST yesterday, continue daily PST as tolerated. Electrolytes repleted, repeat labs in the am. 12/18: Patient blood cultures is growing GPC 4 out 4 bottles. PICC line D/Rivas, patient is already on IV Abx-cefepine and Vanc and ID is following. Patient remains hemodynamically stable. Daily PST as tolerated adn PRN Benzo for anxiety. 12/19: MARIA DEL CARMEN overnight. Culture data noted, continue IV Abx per ID. Orders placed for repeat Bculture. Gamble D/C overnight, patient is voiding. Check bladder scan as needed for retention. Patient failed PST again today. Continue daily PST as tolerated. 12/20: Fevers improved, Cultures +MRSA, on Vanco per ID. Repeat 2D Echo to r/o endocarditis. Patient continue to fail PST, PEEP increased to 8 today. Continue pulmonary hygiene and vent wean per CCM. Sodium tab added for hyponatremia. 12/22: Patient on pressure support trial for approximately 4 hours today, midodrine dosage increased due to hypotension. Lasix discontinued. 12/23: Started on a.m. Seroquel dose, midodrine increased to 10 mg 3 times daily, 500 mL normal saline bolus. 12/24: Seroquel dose changed (25 every morning, 75 nightly). updated at bedside by Dr. De León. CPAP trials as tolerated. Continue vancomycin. Awaiting placement. 12/25: Continue CPAP as tolerated, added gasx for distention. Continue supportive care 12/26: Patient failed PSV this AM. no acute events overnight. 12/27: GI re-consulted due to abdominal distention. No acute events reported overnight. CPAP trials as tolerated. Dr. Mckenna will get a KUB to rule out possible obstruction. 12/28: KUB shows no acute process, CXR shows improvement. CPAP trials as tolerated. 12/29: CT Abd/pelvis noted with moderated bilateral pleural effusion, anasarca, and ascites. X1dose of IV lasix administered. D/w CCM and GI orders plan for thora and paracentesis by IR. Will also start patient on aldactone Qday. Patient is tolerating trickle feeds this am, continue TF and BR adjusted for constipation. Plan of care was discussed with patient and her at the bedside. Thorough discussion on patient's overall poor prognosis and that pat ient will most likely be vent dependent. Patient's voiced understanding of the info given. All questions and concerns were voiced at this time. 12/30: Patient did not tolerate thoracentesis in IR yesterday due to change in LOC and hypoxia. Plan for possible bedside thoracentesis and paracentesis today. Patient remains afebrile. Patient required terminal makeup operator IV abx therapy [id number] left, orders placed for a PICC. Patient remains with sign. Piting edema and anasarca, X1 does of PO Zaroxolyn and 2m of IV lasix given. Electrolytes repleted, repeat lab in the am. 12/31: Tolerated Rt. thoracentesis at the bedside yesterday, 1.4L removed. Patient remains stable on the vent this am, tolerating CPAP today PS dropped to 14. Recent CXR noted, left pleural effusion improved. Patient tolerated gentle diurese yesterday, good urine output reported. D/w CCM hold off on Left thoracentesis today, continue PO Aldactone and additonal zaroxolyn and IV lasix again today. F/u CXR in the am. 01/01: This am CXR noted with worsening bilateral pleural effusion. Patient is stable and tolerating PST this am, however PS is back up to 20 this am. BP is soft this am will hold off on IV diuretic for today, continue PO Aldactone. D/w CCM continue gentle diurese as tolerated. Will reassess in the am. Continue support care. 01/02: MARIA DEL CARMEN overnight. VSS this am, tolerating PST. X1dose of 25% IV Albumin following with 20mg IV Lasix today. Continue daily gentle diurese if hemodynamics tolerate it. Continue to monitor and replace electrolytes as needed 01/03: Abdominal distention and vomiting overnight, 600cc of gastric residual removed, TF held. KUB with no acute abnormality. Reglan added X2days, resume TF, and continue BR. Patient is tolerating PST this am. Hemodynamics remains stable, will continue gentle IV diurese. close monitoring to renal function and electrolytes. 01/04: Tolerating TF, nausea/vomiting resolved, last BM on 01/03. Continue Reglan X1 more day. Patient continue to tolerate PST. D/W CCM continue gentle diurese. F/U CXR in the am. Possible US thoracentesis tomorrow. 01/05: no acute events overnight. scheduled for thoracentesis today but procedure pushed to tomorrow. TF restarted and will be NPO post MN. 01/06: planned thoracentesis today. Working with CM for ltac/snf approval. 01/07: s/p thoracentesis 120 cc appears to have been removed. Pulm recommendations noted, agree with continued diuresis and weaning. Continued planning with CM for ltac/snf placement. 01/08: No new issues. Continue vent weaning per pulmonary. Continuing to work with CM for placement. 01/09: No new issues. Continue vent weaning per pulmonary. Continuing to work with CM for placement. Ordered BMP for tomorrow to check kidney function as patient is currently being diuresed. 01/10: No new issues. Continue vent weaning/diuresis as directed by pulmonary medicine.BMP demonstrates normal renal function and potassium. Sodium and Chloride consistent with prior labs. Will recheck BMP in 2 days. Placement continues to be an issue as patient has been denied at all facilities. Will reasses with CM on wednesday. 01/11: Emesis overnight. Do not suspect that she is obstructed as she had 2 BM reported. Will order Reglan prn, drop TF rate to goal of 30 cc/hr. Will continue to work on placement. 01/12: Per RN patient had reported that she was tired and did not want to persist in her current state of health. D/w patient Niraj at patient bedside and stated that I recommended the patient/family at least talk with hospice to get a better understanding of their care. He was agreeable. I spoke with Ms. Busby who will help set up referral for hospice service so that family can be educated and, if the patient chooses, can pursue this option. 01/13: Continue supportive care. Family discussing about hospice. Continue reinforcement and continue weaning as tolerated. Prognosis is guarded and poor. Patient is clinically stable to transfer to the next level of care has not required any escalation in management. Has been stable on the vent awake alert following commands. 01/14: [id number]. Considering abdominal distention tube feedings hold along with the fact that the patient vomited yesterday. Will obtain a CT abdomen and pelvis to further evaluate placement. Discussed with nursing staff. Awaiting to have a family conversation with the for goals of care discussion again. 01/15: Continue supportive care, tube feed was restarted yesterday and tolerated, will start on simethicone for gas control and management. Patient is clinically stable for all lower level of care and continued weaning from the ventilator to appropriate facility. Family still undecided about goals of care. We will also check labs intermittently. 01/16: Patient today went for Chest tube placement on the right side for recurrent pleural effusion, with the goal of evaluating to see if we can wean off the vent. She has remained on the vent and with some persistent anxiety. she continues to tolerate tube feed. Again poor prognosis discussed with family. 01/17: Status post chest tube, with output of approximately 1880 cc since placement. Will continue to work with pulmonology for vent weaning. 01/18: Only tolerated 1 hr of t piece trial yesterday per RT. Patient PaO2 50s on abg last night. Will continue to work with pulmonary medicine for vent weaning. abg, cbc, bmp, xr chest ordered for am. 01/19: On t piece trial this AM. labs reviewed. CXR reviewed and appears stable with no new changes. AB.42/47.8/112.3/30.9. Will follow pulmonary recommendations and plan to continue to wean off of vent. Assessment and Plan Neuro : Anxiety, chronic pain -Neurology consulted, appreciate recommendations -CT brain showed no acute events -EEG interpreted as abnormal record due to diffuse slowing noted throughout the recording, suggestive of encephalopathic process and/or drug effect, possibilities of postictal state cannot be totally excluded. Clinical correlation is in order -MRI brain not obtained-> patient has metal in her body -Repeat CT head with no acute findings -Reorientation as needed -Ammonia 42, B12 1823, TSH 1.5 -BuSpar, Seroquel, [employer], gabapentin -prn xanax and Dilaudid Cardio: Acute Heart failure with reduced EF, h/o chronic heart block s/p PPM, HTN, CAD s/p PCI (2004), Moderate pulmonary HTN, cardiomyopathy -s/p vasopressor support with levophed -11/04 echocardiogram shows EF 30 to 35%, Moderate pulmonary HTN RVSP 49 -3/ echo with 35-40% EF -Cardiology consulted, appreciate recommendations -Continue beta-charleen and statin therapy -Midodrine (titrate as needed) -Not on aspirin due to allergy -Blood pressure monitoring per protocol -As needed nitroglycerin Resp: Acute hypoxic respiratory failure secondary to bilateral pneumonia, recurrent bilateral pleural effusion s/p rt sided chest tube. Right pneumothorax (resolved). -COVID-19 PCR negative -Intubated on 11/06 with 6.00 ETT at 18 at the lip and changed over bougie on 11/11-7.50 ETT at 20 at the lip -See RT notes for titration -PSV as tolerated -Surgery consult for trach -Received trach/PEG on 11/26 -S/p bedside bronchoscopy on 11/11 complicated by pneumothorax -S/p chest tube placement for right pneumothorax and dislodgment by patient on 11/15 -ABG/CXR per CCM -VAP bundle -Right chest wall ultrasound showed pleural effusion s/p chest tube -12/11 US thoracentesis removed 1L fluid -12/29 US thoracentesis removed 1.4L fluid -01/06 thoracentesis planned -01/16 right-sided chest tube placed by IR -SPO2 monitoring GI: S/p GI bleed, duodenal ulcer, transaminitis -GI consulted, appreciate recommendations-signed off -Nutrition consult for tube feeding, currently on nepro TF 45 cc/hr, dropped to 30 cc/hr due to concerns for emesis. -BR: Senokot -s/p peg 11/26 -H2 charleen -Carafate -24-hour +428 ml -10/2021 Gastric occult positive -> EGD-> duodenal ulcer -12/14 occult stool positive - reglan prn. : Urinary retention (resolved), hyponatremia, hypochloremia -Strict intake and output -Trend BMP ID: Septic shock (POA-resolved), bilateral pneumonia, MRSA bacteremia/pna -Infectious disease consulted, appreciate recommendations -COVID-19 PCR negative -Presented with fevers, leukocytosis and hypotension -11/04 blood cultures positive with a group B strep bacteremia 12/19 however repeat blood cultures on the with no growth to date -Echo showed no evidence of vegetation -repeat echo showed EF 35-40 % with no vegetations -ABX therapy: IV vancomycin for 4 weeks (12/16-01/26) -Monitor WBC and fever curve -Bedside bronchoscopy for mucous plug on CXR 11/11 -f/u blood cultures Heme: Acute DVT in the right external iliac vein, common femoral vein, superior aspect of femoral vein, Acute microcytic anemia -Evidenced on bilateral upper lower extremity ultrasound -S/p 7 unit PRBC -Trend CBC -Transfuse for hemoglobin less than 7 -heparin gtt dc d/t anemia -S/p IVC filter Endo: h/o DM and hypothyroidism -Continue home Synthroid -SSI -Accu-Cheks every 6 -Avoid hypoglycemia The high probability of a clinically significant, sudden or life threatening deterioration of the [multi] system(s) required my full and direct attention, intervention and personal management. The aggregate critical care time was [60] minutes. This time is in addition to time spent performing reported procedures but includes the following: [x] Data Review and interpretation [x] Patient assessment and monitoring of vital signs [x] Documentation [x] Medication orders and management Hospitalist Physical - Physical exam Narrative exam: Physical Exam: VITAL SIGNS: Reviewed. GENERAL: The patient appears normally developed, Vital signs as documented. Frail appearing elderly woman. HEAD: No signs of head trauma. EYES: Pupils are equal. Extraocular motions intact. EARS: Hearing grossly intact. MOUTH: Oropharynx is normal. NECK: No adenopathy, no JVD. CHEST: Bl rhonchi. rt sided chest tube in place. CARDIAC: Regular rate and rhythm. S1 and S2, without murmurs, gallops, or rubs. VASCULAR: No Edema. Peripheral pulses normal and equal in all extremities. ABDOMEN: Soft, non tender and non distended. No rebound or guarding, and no masses palpated. Bowel Sounds normal. MUSCULOSKELETAL: Good range of motion of all major joints. Extremities without clubbing, cyanosis or edema. NEUROLOGIC EXAM: Alert and oriented x 4. no focal sensory or strength deficits. PSYCHIATRIC: anxious appearing SKIN: detail exam as documented in skin assessment - Constitutional Vitals: Temp Pulse Resp BP Pulse Ox 97.7 F 61 18 107/47 95 01/19/22 12:00 01/19/22 11:00 01/19/22 11:00 01/19/22 11:00 01/19/22 11:00 General appearance: Present: no acute distress HEART Score - HEART Score Troponin: Troponin T 0.078 ng/mL (0.00-0.029) H 01/15/22 Unknown Results - Labs CBC & Chem 7: 01/19/22 04:50 01/19/22 04:50 Labs: Laboratory Last Values WBC 10.1 K/mm3 (4.5-11.0) 01/19/22 04:50 RBC 3.14 M/mm3 (3.65-5.03) L 01/19/22 04:50 Hgb 8.4 gm/dl (10.1-14.3) L 01/19/22 04:50 Hct 26.0 % (30.3-42.9) L 01/19/22 04:50 MCV 83 fl (79-97) 01/19/22 04:50 MCH 27 pg (28-32) L 01/19/22 04:50 MCHC 32 % (30-34) 01/19/22 04:50 RDW 18.2 % (13.2-15.2) H 01/19/22 04:50 Plt Count 222 K/mm3 (140-440) 01/19/22 04:50 Lymph % (Auto) 28.2 % (13.4-35.0) 01/19/22 04:50 [place] % (Auto) 5.3 % (0.0-7.3) 01/19/22 04:50 Eos % (Auto) 3.8 % (0.0-4.3) 01/19/22 04:50 Baso % (Auto) 0.8 % (0.0-1.8) 01/19/22 04:50 Lymph # (Auto) 2.8 K/mm3 (1.2-5.4) 01/19/22 04:50 Cecil # (Auto) 0.5 K/mm3 (0.0-0.8) 01/19/22 04:50 Eos # (Auto) 0.4 K/mm3 (0.0-0.4) 01/19/22 04:50 Baso # (Auto) 0.1 K/mm3 (0.0-0.1) 01/19/22 04:50 Add Manual Diff Complete 01/19/22 04:50 Total Counted 100 01/15/22 14:36 Seg Neutrophils % 61.9 % (40.0-70.0) 01/19/22 04:50 Seg Neuts % (Manual) 82.0 % (40.0-70.0) H 01/15/22 14:36 Band Neutrophils % 0 % 01/15/22 14:36 Lymphocytes % (Manual) 11.0 % (13.4-35.0) L 01/15/22 14:36 Reactive Lymphs % (Man) 0 % 01/15/22 14:36 Monocytes % (Manual) 5.0 % (0.0-7.3) 01/15/22 14:36 Eosinophils % (Manual) 1.0 % (0.0-4.3) 01/15/22 14:36 Basophils % (Manual) 1.0 % (0.0-1.8) 01/15/22 14:36 Metamyelocytes % 0 % 01/15/22 14:36 Myelocytes % 0 % 01/15/22 14:36 Promyelocytes % 0 % 01/15/22 14:36 Blast Cells % 0 % 01/15/22 14:36 Nucleated RBC % Not Reportable 01/15/22 14:36 Seg Neutrophils # 6.2 K/mm3 (1.8-7.7) 01/19/22 04:50 Seg Neutrophils # Man 8.8 K/mm3 (1.8-7.7) H 01/15/22 14:36 Band Neutrophils # 0.0 K/mm3 01/15/22 14:36 Lymphocytes # (Manual) 1.2 K/mm3 (1.2-5.4) 01/15/22 14:36 Abs React Lymphs (Man) 0.0 K/mm3 01/15/22 14:36 Monocytes # (Manual) 0.5 K/mm3 (0.0-0.8) 01/15/22 14:36 Eosinophils # (Manual) 0.1 K/mm3 (0.0-0.4) 01/15/22 14:36 Basophils # (Manual) 0.1 K/mm3 (0.0-0.1) 01/15/22 14:36 Metamyelocytes # 0.0 K/mm3 01/15/22 14:36 Myelocytes # 0.0 K/mm3 01/15/22 14:36 Promyelocytes # 0.0 K/mm3 01/15/22 14:36 Blast Cells # 0.0 K/mm3 01/15/22 14:36 WBC Morphology Not Reportable 01/15/22 14:36 Hypersegmented Neuts Not Reportable 01/15/22 14:36 Hyposegmented Neuts Not Reportable 01/15/22 14:36 Hypogranular Neuts Not Reportable 01/15/22 14:36 Smudge Cells Not Reportable 01/15/22 14:36 Toxic Granulation Not Reportable 01/15/22 14:36 Toxic Vacuolation Not Reportable 01/15/22 14:36 Dohle Bodies Not Reportable 01/15/22 14:36 Pelger-Huet Anomaly Not Reportable 01/15/22 14:36 Irina Rods Not Reportable 01/15/22 14:36 Platelet Estimate Consistent w auto 01/15/22 14:36 Clumped Platelets Not Reportable 01/15/22 14:36 Plt Clumps, EDTA Not Reportable 01/15/22 14:36 Large Platelets Not Reportable 01/15/22 14:36 Giant Platelets Not Reportable 01/15/22 14:36 Platelet Satelliting Not Reportable 01/15/22 14:36 Plt Morphology Comment Not Reportable 01/15/22 14:36 RBC Morphology Not Reportable 01/15/22 14:36 Dimorphic RBCs Not Reportable 01/15/22 14:36 Polychromasia Not Reportable 01/15/22 14:36 Hypochromasia Not Reportable 01/15/22 14:36 Poikilocytosis Not Reportable 01/15/22 14:36 Anisocytosis 1+ 01/15/22 14:36 Microcytosis Not Reportable 01/15/22 14:36 Macrocytosis Not Reportable 01/15/22 14:36 Spherocytes Not Reportable 01/15/22 14:36 Pappenheimer Bodies Not Reportable 01/15/22 14:36 Sickle Cells Not Reportable 01/15/22 14:36 Target Cells Not Reportable 01/15/22 14:36 Tear Drop Cells Not Reportable 01/15/22 14:36 Ovalocytes Not Reportable 01/15/22 14:36 Helmet Cells Not Reportable 01/15/22 14:36 Odonnell-[place]field Bodies Not Reportable 01/15/22 14:36 [place] Rings Not Reportable 01/15/22 14:36 [place] Cells Not Reportable 01/15/22 14:36 Bite Cells Not Reportable 01/15/22 14:36 Crenated Cell Not Reportable 01/15/22 14:36 Elliptocytes Not Reportable 01/15/22 14:36 Acanthocytes (Spur) Not Reportable 01/15/22 14:36 Rouleaux Not Reportable 01/15/22 14:36 Hemoglobin C Crystals Not Reportable 01/15/22 14:36 Schistocytes Not Reportable 01/15/22 14:36 Malaria parasites Not Reportable 01/15/22 14:36 Godfrey Bodies Not Reportable 01/15/22 14:36 Hem Pathologist Commnt No 01/15/22 14:36 PT 16.9 Sec. (12.2-14.9) H 01/06/22 04:06 INR 1.23 (0.87-1.13) H 01/06/22 04:06 APTT 29.2 Sec. (24.2-36.6) 11/26/21 05:00 D-Dimer 2655.00 ng/mlDDU (0-234) H 11/11/21 04:28 ABG pH 7.428 pH Units (7.350-7.450) 01/18/22 12:50 ABG pCO2 47.8 mm Hg 01/18/22 12:50 ABG pO2 112.3 mm Hg (80.0-90.0) H 01/18/22 12:50 ABG HCO3 30.9 mmol/L (20.0-26.0) H 01/18/22 12:50 ABG O2 Saturation 98.1 % (95.0-99.0) 01/18/22 12:50 ABG O2 Content 12.2 (0.0-44) 01/18/22 12:50 ABG Base Excess 5.8 mmol/L (-2.0-3.0) H 01/18/22 12:50 ABG Hemoglobin 8.8 gm/dl (12.0-16.0) L 01/18/22 12:50 ABG Carboxyhemoglobin 1.4 % (0.0-5.0) 01/18/22 12:50 ABG Methemoglobin 0.3 % (0.0-1.5) 01/18/22 12:50 Oxyhemoglobin 96.3 % (95.0-99.0) 01/18/22 12:50 FiO2 30 % 01/18/22 12:50 Sodium 134 mmol/L (137-145) L 01/19/22 04:50 Potassium 3.9 mmol/L (3.6-5.0) 01/19/22 04:50 Chloride 95.4 mmol/L (98-107) L 01/19/22 04:50 Carbon Dioxide 29 mmol/L (22-30) 01/19/22 04:50 Anion Gap 14 mmol/L 01/19/22 04:50 BUN 28 mg/dL (7-17) H 01/19/22 04:50 Creatinine 0.6 mg/dL (0.6-1.2) 01/19/22 04:50 Estimated GFR > 60 ml/min 01/19/22 04:50 BUN/Creatinine Ratio 47 % 01/19/22 04:50 Glucose 100 mg/dL (65-100) 01/19/22 04:50 POC Glucose 97 mg/dL (70-105) 01/19/22 05:40 Lactic Acid 3.70 mmol/L (0.7-2.0) H* 11/03/21 22:32 Calcium 8.7 mg/dL (8.4-10.2) 01/19/22 04:50 Phosphorus 3.70 mg/dL (2.5-4.5) 01/19/22 04:50 Magnesium 1.80 mg/dL (1.7-2.3) 01/19/22 04:50 Ferritin 52.6 ng/mL (10.0-200.0) 11/05/21 06:11 Total Bilirubin 0.50 mg/dL (0.1-1.2) 11/17/21 05:56 Direct Bilirubin < 0.2 mg/dL (0-0.2) 11/11/21 04:28 Indirect Bilirubin 0.1 mg/dL 11/11/21 04:28 AST 36 units/L (5-40) 11/17/21 05:56 ALT 47 units/L (7-56) 11/17/21 05:56 Alkaline Phosphatase 107 units/L (35-129) 11/17/21 05:56 Ammonia 42.0 umol/L (25-60) 11/10/21 14:08 Lactate Dehydrogenase 187 units/L (91-180) H 11/05/21 06:11 Troponin T 0.078 ng/mL (0.00-0.029) H 01/15/22 Unknown C-Reactive Protein 22.20 mg/dL (0.00-1.30) H 11/05/21 06:11 NT-Pro-B Natriuret Pep 7895 pg/mL (0-900) H 11/03/21 22:32 Total Protein 5.1 g/dL (6.3-8.2) L 11/17/21 05:56 Albumin 2.2 g/dL (3.9-5) L 11/17/21 05:56 Albumin/Globulin Ratio 0.8 % 11/17/21 05:56 Triglycerides 72 mg/dL (2-149) 01/15/22 21:07 Cholesterol 103 mg/dL (50-199) 01/15/22 21:07 LDL Cholesterol Direct 44 mg/dL (50-130) L 01/15/22 21:07 HDL Cholesterol 46 mg/dL (40-59) 01/15/22 21:07 Cholesterol/HDL Ratio 2.23 % 01/15/22 21:07 Vitamin B12 1823 pg/mL (211-911) H 11/10/21 14:08 TSH 1.510 mlU/mL (0.270-4.200) 11/10/21 14:08 Urine Color Yellow (Yellow) 11/11/21 09:00 Urine Turbidity Slightly-cloudy (Clear) 11/11/21 09:00 Urine pH 5.0 (5.0-7.0) 11/11/21 09:00 Ur Specific Porter 1.009 (1.003-1.030) 11/11/21 09:00 Urine Protein <15 mg/dl mg/dL (Negative) 11/11/21 09:00 Urine Glucose (UA) Neg mg/dL (Negative) 11/11/21 09:00 Urine Ketones Neg mg/dL (Negative) 11/11/21 09:00 Urine Blood Mod (Negative) 11/11/21 09:00 Urine Nitrite Neg (Negative) 11/11/21 09:00 Urine Bilirubin Neg (Negative) 11/11/21 09:00 Urine Urobilinogen < 2.0 mg/dL (<2.0) 11/11/21 09:00 Ur Leukocyte Esterase Neg (Negative) 11/11/21 09:00 Urine WBC (Auto) < 1.0 /HPF (0.0-6.0) 11/11/21 09:00 Urine RBC (Auto) < 1.0 /HPF (0.0-6.0) 11/11/21 09:00 Fluid Type Pleural 01/06/22 13:40 Fluid Color Yellow 01/06/22 13:40 Fluid Appearance Hazy 01/06/22 13:40 Fluid WBC 273 /mm3 01/06/22 13:40 Fluid RBC 45 /mm3 01/06/22 13:40 Fluid Seg Neutrophils 47.0 % 01/06/22 13:40 Fluid Lymphocytes 22.0 % 01/06/22 13:40 Fluid Monocytes 10.0 % 01/06/22 13:40 Fluid Eosinophils 19.0 % 01/06/22 13:40 Fluid Basophils 2.0 % 01/06/22 13:40 Fluid Glucose 96 mg/dL (40-70) H 01/06/22 13:40 Fluid Total Protein < 3.0 (15.0-45.0) L 01/06/22 13:40 Fluid LDH 149 01/06/22 13:40 Vancomycin Trough 15.3 ug/mL (5.0-20.0) 01/16/22 07:30 Random Vancomycin 10.5 ug/mL (0-40.0) 01/04/22 05:00 Coronavirus (PCR) Negative (Negative) 11/10/21 08:30 Blood Type O POSITIVE 12/14/21 10:30 Antibody Screen Negative 12/14/21 10:30 Crossmatch See Detail 12/14/21 10:30 Microbiology: Microbiology 01/16/22 Unknown Pleural Fluid - Pleura,Rt Lung Body Fluid Culture - Preliminary Gamble/IV: Voiding Method External Female Catheter Active Medications - Current Medications Current Medications: Generic Name Dose Route Start Last Admin Trade Name Freq PRN Reason Stop Dose Admin Acetaminophen 650 mg 12/14/21 04:12 01/17/22 11:27 Acetaminophen 325 Mg/10.15 Ml Oral Liqd Unit Dose FEEDTUBE 650 mg Q6H PRN Administration Non Cardiac Pain or Temp>100.5 Hydrocodone Bitart/Acetaminophen 1 each 11/21/21 10:00 01/19/22 08:47 Hydrocodone/Acetaminophen 10-325mg Tab FEEDTUBE 1 each TID YOSSI Administration Alprazolam 0.25 mg 12/30/21 09:00 01/18/22 22:40 Alprazolam 0.25 Mg Tab FEEDTUBE 0.25 mg Q8H PRN Administration Agitation Lipase/Protease/Amylase 1 each 11/08/21 11:09 Lipase 10,500/Protease 25,000/Amylase 43,750 (Units) Dr Lema FEEDTUBE PRN PRN For Clogged Feeding Tube Buspirone HCl 7.5 mg 12/30/21 10:00 01/19/22 09:28 Buspirone 5 Mg Tab FEEDTUBE 7.5 mg BID YOSSI Administration Dextrose 50 ml 01/16/22 14:00 Dextrose 50% In Water (25gm) 50 Ml Syringe IV Q30MIN PRN Hypoglycemia Protocol Docusate Sodium 100 mg 12/30/21 10:00 01/19/22 09:28 Docusate Sodium 100 Mg/10 Ml Oral Liqd FEEDTUBE Not Given BID YOSSI Furosemide 20 mg 01/08/22 10:00 01/19/22 09:28 Furosemide 20 Mg Tab PO 20 mg QDAY YOSSI Administration Gabapentin 100 mg 12/30/21 10:00 01/19/22 09:28 Gabapentin 100 Mg Cap FEEDTUBE 100 mg QDAY YOSSI Administration Hydrophilic Ointment 1 applic 11/06/21 04:02 Lip Therapy Vaseline TP Q2HR PRN Dry Lips Vancomycin HCl 1 gm in 250 mls @ 166.667 mls/hr 01/04/22 10:00 01/18/22 09:27 Vancomycin/Ns 1 Gm/250 Ml IV 01/26/22 11:29 166.667 mls/hr Q48H YOSSI Administration Lansoprazole 30 mg 11/24/21 22:00 01/19/22 09:29 Lansoprazole 30 Mg Solutab FEEDTUBE 30 mg BID YOSSI Administration Levothyroxine Sodium 125 mcg 12/31/21 06:00 01/19/22 05:36 Levothyroxine 125 Mcg Tab FEEDTUBE 125 mcg DAILY@0600 YOSSI Administration Melatonin 5 mg 12/05/21 22:00 01/18/22 22:26 Melatonin 5 Mg Tab PO 5 mg QHS YOSSI Administration Metoclopramide HCl 10 mg 01/11/22 13:25 01/14/22 14:56 Metoclopramide 10 Mg/2 Ml Inj IV 10 mg Q6H PRN Administration Nausea And Vomiting Metoprolol Tartrate 6.25 mg 12/30/21 10:00 01/19/22 09:28 Metoprolol Tartrate 25 Mg Tab FEEDTUBE 6.25 mg BID YOSSI Administration Midodrine 5 mg 12/30/21 09:00 01/19/22 08:48 Midodrine 5 Mg Tab FEEDTUBE 5 mg TID@0800,1200,1600 YOSSI Administration Multi-Ingred Cream/Lotion/Oil/Oint 1 applic 11/06/21 04:02 Mineral Oil/Petrolatum, White Ophth Oint 3.5 Gm OU Q4HR PRN Dry Eye(s) Ondansetron HCl 4 mg 12/05/21 10:00 01/18/22 22:31 Ondansetron 4 Mg/2 Ml Inj IV 4 mg Q8H PRN Administration Nausea And Vomiting Polyethylene Glycol 17 gm 12/30/21 10:00 01/19/22 09:29 Polyethylene Glycol 3350 17 Gm Powder FEEDTUBE Not Given QDAY YOSSI Pravastatin Sodium 20 mg 12/30/21 22:00 01/18/22 22:25 Pravastatin 20 Mg Tab FEEDTUBE 20 mg QHS YOSSI Administration Quetiapine Fumarate 25 mg 12/30/21 10:00 01/19/22 09:29 Quetiapine 25 Mg Tab FEEDTUBE 25 mg QAM YOSSI Administration Quetiapine Fumarate 50 mg 12/30/21 22:00 01/18/22 22:24 Quetiapine 25 Mg Tab FEEDTUBE 50 mg QHS YOSSI Administration Senna 17.6 mg 12/29/21 11:00 01/19/22 09:29 Sennosides Oral Liqd 8.8 Mg/5 Ml Oral Liqd FEEDTUBE Not Given Q12HR YOSSI Simethicone 80 mg 01/15/22 15:06 01/15/22 21:10 Simethicone 80 Mg Chew Tab PO 80 mg PC PRN Administration Gas pain Simple Syrup 15 ml 11/08/21 11:09 Simple Syrup 15 Ml FEEDTUBE PRN PRN Hypoglycemia Simple Syrup 30 ml 11/08/21 11:09 Simple Syrup 15 Ml FEEDTUBE PRN PRN Hypoglycemia Sodium Bicarbonate 325 mg 11/08/21 11:09 01/09/22 20:25 Sodium Bicarbonate 325 Mg Tab FEEDTUBE 325 mg PRN PRN Administration For Clogged Feeding Tube Sodium Chloride 10 ml 11/04/21 10:00 01/19/22 09:29 Sodium Chloride 0.9% 10 Ml Flush Syringe IV Not Given BID YOSSI Sodium Chloride 10 ml 11/04/21 02:03 01/09/22 06:35 Sodium Chloride 0.9% 10 Ml Flush Syringe IV 10 ml PRN PRN Administration LINE FLUSH Spironolactone 25 mg 12/30/21 10:00 01/19/22 09:26 Spironolactone 25 Mg Tab FEEDTUBE 25 mg QDAY YOSSI Administration Sucralfate 1 gm 12/30/21 12:00 01/19/22 05:37 Sucralfate 1 Gm/10 Ml Oral Liqd FEEDTUBE 1 gm Q6HR YOSSI Administration Trazodone HCl 50 mg 12/04/21 22:00 01/18/22 22:25 Trazodone 50 Mg Tab PO 50 mg QHS YOSSI Administration Nutrition/Malnutrition Assess - Dietary Evaluation Nutrition/Malnutrition Findings: Nutrition Notes Start: 11/04/21 17:16 Freq: Status: Active Protocol: Document 01/16/22 13:56 [facility] (Rec: 01/16/22 14:20 [facility] [id number]) Nutrition Notes Initial or Follow up Reassessment Current Diagnosis Coronary Artery Disease, Diabetes,Hypertension,Heart Failure,Respiratory Failure Other Pertinent Diagnosis Bilat pleural effusion Current Diet TF - Vital AF 1.2 at 30ml/hr Labs/Tests Na 134 BUN 24 Pertinent Medications Simethicone and Reglan received prn Height 5 ft Weight 67.2 kg [place] Body Weight (kg) 45.45 BMI 28.9 Weight change and time frame Current wt obtained from bed scale (8.3% wt loss x 13 days) Weight Status Overweight Subjective/Other Information Pt remains on vent support. Pt is s/p CT-guided placement of drainage catheter sec to recurrent pleural effusions. Per RN, pt tolerating TF. Pt awaiting placement. RN requesting Jaswant as pt with wounds. TF rate decreased to 30ml/hr on 01/11 per MD order for presumed intolerance to TF . Percent of energy/protein needs met: 68% energy 67% pro Burn Absent Trauma Absent Minimum of two criteria Yes Interpretation of Weight Loss (severe) >2% in 1 week Muscle Mass Mild Depletion (non-severe) #2 Nutrition Diagnosis Inadequate enteral nutrition infusion Etiology pt with wounds and chronic medical conditions; hx of intolerance to EN support As Evidenced by Signs and Symptoms current TF rate providing <75% of estimated energy and pro needs; unintentional wt loss #1 Nutrition Diagnosis Inadequate oral intake Diagnosis Progress(for reassessment Continues documentation) Is patient on ventilator? Yes Is Patient Ambulatory and/or Out of Bed No REE-([facility]-confined to bed) [phone] Calculation Used for Recommendations [facility] Additional Notes Pro needs 1.2-2g/k-134g/ day Fluid needs 1ml/kcal Nutrition Intervention Nutrition Support: Increase TF rate to at least 35ml/hr to meet >75% energy and pro needs. Provide 50ml water flush q4h. Kcal 1,008 Protein (gm) 63 Carbohydrates (gm) 45 Fat (gm) 45 Fluid (mL) 681 Fiber (gm) 4 Add Supplement/Snack (indicate name/kcal Jaswant BID /protein ) Provides kCal: 190 Provides Protein (gm) 5 Goal #1 TF tolerance Goal #2 TF to meet at least 75% energy and pro needs Goal #3 Wound healing Follow-Up By: 01/19/22 Additional Comments F/U: TF rate change/tolerance, Jaswant administration, vent status
[2022-01-19] MEDS: ALPRAZolam 0.25 MG TAB FEEDTUBE PRN ×2 (13:10→19:38)
--- NOTE | 2022-01-19 14:02 | Progress Note ---
Assessment and Plan 81-year-old female with known history of diabetes mellitus, hypertension and arthritis brought to the emergency room via EMS for shortness of breath which has been ongoing for the past 3 days prior to come to the emergency room. Patient has been having some cough and shortness of breath. According to patient's , patient has also been having a fever of about 102.2 F. Upon arrival of EMS patient was found to be tachypneic with O2 saturation of 76% on room air which later improved to 88% on nonrebreather. Work-up in the emergency room , chest x-ray shows bilateral interstitial pulmonary edema with bilateral pleural effusions.. Bibasilar opacities which favors atelectasis. Lab reveals leukocytosis of 29. Hemoglobin of 6.1. Patient received blood transfusion and also checked for COVID-19. Patient Ivy virus test reported negative. Patient intubated and placed on mechanical ventilation. Patient transfered to ICU. Patient undergone thoracentesis and chest tube placement. Patient still on mechanical ventilation. Patient transfered to IMCU. Patient awake. Following commands. Patient is presently resting on T tube,FIO2 35% and O2 saturation running 99%. Patient afebrile. No leukocytosis.Blood pressure 121/58, Pulse 72 , respirations 13 Patients recent HGB 8.4 01/19/22 Chest xray 12/11/21 reported Diffuse bilateral pulmonary opacities most significant in the left lung and right upper lung .No pneumothorax. Chest xray done 01/01/22 reported Worsening bilateral pulmonary opacities and effusions Chest xray 01/05/22 reported Diffuse bilateral pleuroparenchymal opacities, right greater than left, are similar to the prior exam. No pneumothorax. Patient undergone thoracentesis under Ultrasound guidance. Repeat chest xray post thoracentesis 01/06/22 reported Near complete evacuation of the right pleural effusion. No pneumothorax. Pleural fluid cell count wbc 273, RBC 45 Pleural fluid chemistry Protein less than 3, [id number], Glucose 96. Pleural fluid is transudate. Repeat chest xray 01/16/22 reported Diffuse bilateral pulmonary opacities and effusions. Right PICC line tip overlies distal SVC. Small right chest tube is noted without large pneumothorax Chest xray done 01/19/22 reported stable diffuse bilateral interstitial infiltrates and small effusions. Patient is on Vancomycin, Prevacid and Sucralfate. Recommend SCDs. Patient is on tube feeding. I spent critical care time of 32 minutes, reviewing the chart, examine the patient, review lab results, chest xray and talk to respiratory therapy and nursing staff and work out plan of treatment in this critically ill patient. - Patient Problems (1) Acute respiratory failure with hypoxia Current Visit: Yes Status: Acute Plan to address problem: Patient presently on T tube, FIO2 35% and O2 saturation running 99%. (2) Bilateral pneumonia Current Visit: Yes Status: Acute Plan to address problem: Patient is on vancomycin. (3) Occult blood positive stool Current Visit: Yes Status: Acute Plan to address problem: Management as per gastroenterology. (4) Acute anemia Current Visit: Yes Status: Acute Plan to address problem: Patient received blood transfusion. Todays HGB 8.4. (5) Suspected COVID-19 virus infection Current Visit: Yes Status: Acute Plan to address problem: Ivy virus PCR negative. (6) Pleural effusion Current Visit: Yes Status: Acute Plan to address problem: Patient unergone right thoracentesis under ultrasound guidance. Post thoracentesis chest xray reported Near complete evacuation of the right pleural effusion. No pneumothorax. Pleural fluid cell count wbc 273, RBC 45 Pleural fluid chemistry Protein less than 3, [id number], Glucose 96. Pleural fluid is transudate. Subjective Date of service: 01/19/22 Principal diagnosis: Septic shock; AHRF; Anemia; Pneumonia; pleural effusion; HFrEF; Pulm HTN Interval history: 81-year-old female with known history of diabetes mellitus, hypertension and arthritis brought to the emergency room via EMS for shortness of breath which has been ongoing for the past 3 days prior to come to the emergency room. Patient has been having some cough and shortness of breath. According to patient's , patient has also been having a fever of about 102.2 F. Upon arrival of EMS patient was found to be tachypneic with O2 saturation of 76% on room air which later improved to 88% on nonrebreather. Work-up in the emergency room , chest x-ray shows bilateral interstitial pulmonary edema with bilateral pleural effusions.. Bibasilar opacities which favors atelectasis. Lab reveals leukocytosis of 29. Hemoglobin of 6.1. Patient received blood transfusion and also checked for COVID-19. Patient Ivy virus test reported negative. Patient intubated and placed on mechanical ventilation. Patient transfered to ICU. Patient undergone thoracentesis and chest tube placement. Patient still on mechanical ventilation. Patient transfered to IMCU. Patient awake. Following commands. Patient is presently resting on T tube,FIO2 35% and O2 saturation running 99%. Patient afebrile. No leukocytosis.Blood pressure 121/58, Pulse 72 , respirations 13 Patients recent HGB 8.4 01/19/22 Chest xray 12/11/21 reported Diffuse bilateral pulmonary opacities most significant in the left lung and right upper lung .No pneumothorax. Chest xray done 01/01/22 reported Worsening bilateral pulmonary opacities and effusions Chest xray 01/05/22 reported Diffuse bilateral pleuroparenchymal opacities, right greater than left, are similar to the prior exam. No pneumothorax. Patient undergone thoracentesis under Ultrasound guidance. Repeat chest xray post thoracentesis 01/06/22 reported Near complete evacuation of the right pleural effusion. No pneumothorax. Pleural fluid cell count wbc 273, RBC 45 Pleural fluid chemistry Protein less than 3, [id number], Glucose 96. Pleural fluid is transudate. Repeat chest xray 01/16/22 reported Diffuse bilateral pulmonary opacities and effusions. Right PICC line tip overlies distal SVC. Small right chest tube is noted without large pneumothorax Chest xray done 01/19/22 reported stable diffuse bilateral interstitial infiltrates and small effusions. Patient is on Vancomycin, Prevacid and Sucralfate. Recommend SCDs. Patient is on tube feeding. Objective Vital Signs - 12hr 01/19/22 01/19/22 01/19/22 03:00 03:27 04:00 Temperature 97.4 F L Pulse Rate 61 60 60 Pulse Rate [ 60 From Monitor] Respiratory 14 14 Rate Blood Pressure 106/54 106/54 117/53 O2 Sat by Pulse 100 100 100 Oximetry 01/19/22 01/19/22 01/19/22 05:00 06:00 07:01 Temperature Pulse Rate 60 61 60 Pulse Rate [ From Monitor] Respiratory 15 14 14 Rate Blood Pressure 124/55 104/46 115/52 O2 Sat by Pulse 85 86 94 Oximetry 01/19/22 01/19/22 01/19/22 07:30 08:00 08:05 Temperature 97.5 F L Pulse Rate 75 66 Pulse Rate [ 75 From Monitor] Respiratory 22 Rate Blood Pressure 104/51 104/51 O2 Sat by Pulse 100 93 Oximetry 01/19/22 01/19/22 01/19/22 08:19 09:00 09:26 Temperature Pulse Rate 77 72 75 Pulse Rate [ From Monitor] Respiratory 24 Rate Blood Pressure 104/51 138/61 138/61 O2 Sat by Pulse 99 99 Oximetry 01/19/22 01/19/22 01/19/22 09:28 10:00 11:00 Temperature Pulse Rate 75 60 61 Pulse Rate [ From Monitor] Respiratory 23 18 Rate Blood Pressure 138/61 100/41 107/47 O2 Sat by Pulse 100 95 Oximetry 01/19/22 01/19/22 12:00 13:00 Temperature 97.7 F Pulse Rate 60 62 Pulse Rate [ 78 From Monitor] Respiratory 15 30 H Rate Blood Pressure 105/48 111/54 O2 Sat by Pulse 97 100 Oximetry Constitutional: no acute distress, alert, other (Resting on T tube, FIO2 35%) Eyes: non-icteric ENT: oropharynx moist, other (+ Midline tracheostomy with minimal secretions) Neck: supple, no lymphadenopathy, no JVD Effort: mildly labored Ascultation: Bilateral: diminished breath sounds, rhonchi, other (Right chest tube) Percussion: Right: not dull, Left: dull (bases) Cardiovascular: regular rate and rhythm, other (S1,S2) Gastrointestinal: normoactive bowel sounds, soft, non-tender, non-distended (protuberant) Integumentary: normal Extremities: no cyanosis, pink and warm, pulses normal, edema (upper etremities), anasarca Neurologic: non-focal exam (grossly), pupils equal and round, CN II-XII normal Psychiatric: mood appropriate, anxious CBC and BMP: 01/19/22 04:50 01/19/22 04:50 ABG, PT/INR, D-dimer: ABG ABG pH 7.428 pH Units (7.350-7.450) 01/18/22 12:50 ABG pCO2 47.8 mm Hg 01/18/22 12:50 ABG pO2 112.3 mm Hg (80.0-90.0) H 01/18/22 12:50 ABG O2 Saturation 98.1 % (95.0-99.0) 01/18/22 12:50 PT/INR, D-dimer PT 16.9 Sec. (12.2-14.9) H 01/06/22 04:06 INR 1.23 (0.87-1.13) H 01/06/22 04:06 D-Dimer 2655.00 ng/mlDDU (0-234) H 11/11/21 04:28 Abnormal lab findings: Abnormal Labs 11/03/21 11/03/21 11/03/21 22:32 22:32 22:32 WBC 29.3 H RBC 2.93 L Hgb 6.1 L Hct 21.9 L MCV 75 L MCH 21 L MCHC 28 L RDW 19.7 H Plt Count Seg Neuts % (Manual) 97.0 H Lymphocytes % (Manual) 3.0 L Seg Neutrophils # Man 28.4 H Lymphocytes # (Manual) 0.9 L Monocytes # (Manual) PT 18.6 H INR 1.40 H D-Dimer ABG pH ABG pO2 ABG HCO3 ABG O2 Saturation ABG Base Excess ABG Hemoglobin Oxyhemoglobin Sodium Potassium Chloride Carbon Dioxide 20 L BUN 33 H Creatinine Glucose 119 H POC Glucose Lactic Acid Calcium 8.3 L Phosphorus Magnesium AST ALT Alkaline Phosphatase Lactate Dehydrogenase Troponin T 0.035 H C-Reactive Protein NT-Pro-B Natriuret Pep Total Protein Albumin LDL Cholesterol Direct 34 L Vitamin B12 Fluid Glucose Fluid Total Protein Vancomycin Trough Crossmatch 11/03/21 11/03/21 11/03/21 22:32 22:32 23:57 WBC RBC Hgb Hct MCV MCH MCHC RDW Plt Count Seg Neuts % (Manual) Lymphocytes % (Manual) Seg Neutrophils # Man Lymphocytes # (Manual) Monocytes # (Manual) PT INR D-Dimer ABG pH ABG pO2 ABG HCO3 ABG O2 Saturation ABG Base Excess ABG Hemoglobin Oxyhemoglobin Sodium Potassium Chloride Carbon Dioxide BUN Creatinine Glucose POC Glucose Lactic Acid 3.70 H* Calcium Phosphorus Magnesium AST ALT Alkaline Phosphatase 139 H Lactate Dehydrogenase Troponin T C-Reactive Protein NT-Pro-B Natriuret Pep 7895 H Total Protein Albumin 3.5 L LDL Cholesterol Direct Vitamin B12 Fluid Glucose Fluid Total Protein Vancomycin Trough Crossmatch See Detail 11/04/21 11/04/21 11/05/21 00:59 13:58 00:51 WBC 27.9 H RBC 3.28 L Hgb 7.3 L Hct 25.5 L MCV 78 L MCH 22 L MCHC 29 L RDW 19.1 H Plt Count Seg Neuts % (Manual) 96.0 H Lymphocytes % (Manual) 2.0 L Seg Neutrophils # Man 26.8 H Lymphocytes # (Manual) 0.6 L Monocytes # (Manual) PT INR D-Dimer ABG pH ABG pO2 ABG HCO3 ABG O2 Saturation ABG Base Excess ABG Hemoglobin Oxyhemoglobin Sodium Potassium Chloride Carbon Dioxide BUN Creatinine Glucose POC Glucose Lactic Acid Calcium Phosphorus Magnesium AST ALT Alkaline Phosphatase Lactate Dehydrogenase Troponin T 0.051 H D 0.032 H D C-Reactive Protein NT-Pro-B Natriuret Pep Total Protein Albumin LDL Cholesterol Direct Vitamin B12 Fluid Glucose Fluid Total Protein Vancomycin Trough Crossmatch 11/05/21 11/05/21 11/05/21 06:11 06:11 06:11 WBC 31.8 H RBC 3.57 L Hgb 8.0 L Hct 27.7 L MCV 78 L MCH 22 L MCHC 29 L RDW 19.2 H Plt Count Seg Neuts % (Manual) 91.0 H Lymphocytes % (Manual) 4.5 L Seg Neutrophils # Man 28.9 H Lymphocytes # (Manual) Monocytes # (Manual) 1.1 H PT INR D-Dimer 1494.53 H ABG pH ABG pO2 ABG HCO3 ABG O2 Saturation ABG Base Excess ABG Hemoglobin Oxyhemoglobin Sodium Potassium Chloride Carbon Dioxide 19 L BUN 42 H Creatinine Glucose 115 H POC Glucose Lactic Acid Calcium Phosphorus Magnesium AST 43 H ALT Alkaline Phosphatase Lactate Dehydrogenase 187 H Troponin T C-Reactive Protein 22.20 H NT-Pro-B Natriuret Pep Total Protein 6.0 L Albumin 3.2 L LDL Cholesterol Direct Vitamin B12 Fluid Glucose Fluid Total Protein Vancomycin Trough Crossmatch 11/05/21 11/05/21 11/06/21 06:11 12:15 00:30 WBC RBC Hgb Hct MCV MCH MCHC RDW Plt Count Seg Neuts % (Manual) Lymphocytes % (Manual) Seg Neutrophils # Man Lymphocytes # (Manual) Monocytes # (Manual) PT INR D-Dimer ABG pH ABG pO2 ABG HCO3 ABG O2 Saturation ABG Base Excess ABG Hemoglobin Oxyhemoglobin Sodium Potassium Chloride Carbon Dioxide BUN Creatinine Glucose POC Glucose 113 H 69 L Lactic Acid Calcium Phosphorus Magnesium AST ALT Alkaline Phosphatase Lactate Dehydrogenase Troponin T 0.033 H C-Reactive Protein NT-Pro-B Natriuret Pep Total Protein Albumin LDL Cholesterol Direct Vitamin B12 Fluid Glucose Fluid Total Protein Vancomycin Trough Crossmatch 11/06/21 11/06/21 11/06/21 05:50 15:50 15:50 WBC 25.5 H RBC 3.62 L Hgb 8.0 L Hct 27.5 L MCV 76 L MCH 22 L MCHC 29 L RDW 19.6 H Plt Count Seg Neuts % (Manual) 92.0 H Lymphocytes % (Manual) 5.0 L Seg Neutrophils # Man 23.5 H Lymphocytes # (Manual) Monocytes # (Manual) PT INR D-Dimer ABG pH 7.305 L ABG pO2 ABG HCO3 15.8 L ABG O2 Saturation ABG Base Excess -9.6 L ABG Hemoglobin 8.6 L Oxyhemoglobin 94.6 L Sodium Potassium Chloride 113.9 H Carbon Dioxide 17 L BUN 56 H Creatinine Glucose 114 H POC Glucose Lactic Acid Calcium 7.9 L Phosphorus Magnesium AST 1410 H ALT 934 H Alkaline Phosphatase 142 H Lactate Dehydrogenase Troponin T C-Reactive Protein NT-Pro-B Natriuret Pep Total Protein 5.0 L Albumin 2.6 L LDL Cholesterol Direct Vitamin B12 Fluid Glucose Fluid Total Protein Vancomycin Trough Crossmatch 11/07/21 11/07/21 11/07/21 03:30 04:50 08:07 WBC RBC Hgb Hct MCV MCH MCHC RDW Plt Count Seg Neuts % (Manual) Lymphocytes % (Manual) Seg Neutrophils # Man Lymphocytes # (Manual) Monocytes # (Manual) PT INR D-Dimer ABG pH ABG pO2 296.9 H ABG HCO3 18.1 L ABG O2 Saturation 99.5 H ABG Base Excess -5.9 L ABG Hemoglobin 7.6 L Oxyhemoglobin Sodium Potassium Chloride Carbon Dioxide BUN Creatinine Glucose POC Glucose 106 H 108 H Lactic Acid Calcium Phosphorus Magnesium AST ALT Alkaline Phosphatase Lactate Dehydrogenase Troponin T C-Reactive Protein NT-Pro-B Natriuret Pep Total Protein Albumin LDL Cholesterol Direct Vitamin B12 Fluid Glucose Fluid Total Protein Vancomycin Trough Crossmatch 11/08/21 11/08/21 11/08/21 03:10 18:05 23:43 WBC RBC Hgb Hct MCV MCH MCHC RDW Plt Count Seg Neuts % (Manual) Lymphocytes % (Manual) Seg Neutrophils # Man Lymphocytes # (Manual) Monocytes # (Manual) PT INR D-Dimer ABG pH ABG pO2 127.4 H ABG HCO3 ABG O2 Saturation ABG Base Excess -3.4 L ABG Hemoglobin 7.4 L Oxyhemoglobin Sodium Potassium Chloride Carbon Dioxide BUN Creatinine Glucose POC Glucose 113 H 141 H Lactic Acid Calcium Phosphorus Magnesium AST ALT Alkaline Phosphatase Lactate Dehydrogenase Troponin T C-Reactive Protein NT-Pro-B Natriuret Pep Total Protein Albumin LDL Cholesterol Direct Vitamin B12 Fluid Glucose Fluid Total Protein Vancomycin Trough Crossmatch 11/08/21 11/08/21 11/09/21 Unknown Unknown 02:00 WBC 14.5 H RBC 3.35 L Hgb 7.5 L 8.1 L Hct 25.4 L 27.6 L MCV 76 L 76 L MCH 23 L 22 L MCHC RDW 19.9 H 19.9 H Plt Count Seg Neuts % (Manual) Lymphocytes % (Manual) Seg Neutrophils # Man Lymphocytes # (Manual) Monocytes # (Manual) PT INR D-Dimer ABG pH ABG pO2 ABG HCO3 ABG O2 Saturation ABG Base Excess ABG Hemoglobin Oxyhemoglobin Sodium 154 H D Potassium 3.3 L Chloride 120.7 H Carbon Dioxide 20 L BUN 38 H Creatinine Glucose POC Glucose Lactic Acid Calcium 8.3 L Phosphorus Magnesium AST ALT Alkaline Phosphatase Lactate Dehydrogenase Troponin T C-Reactive Protein NT-Pro-B Natriuret Pep Total Protein Albumin LDL Cholesterol Direct Vitamin B12 Fluid Glucose Fluid Total Protein Vancomycin Trough Crossmatch 11/09/21 11/09/21 11/09/21 02:00 02:31 05:12 WBC RBC Hgb Hct MCV MCH MCHC RDW Plt Count Seg Neuts % (Manual) Lymphocytes % (Manual) Seg Neutrophils # Man Lymphocytes # (Manual) Monocytes # (Manual) PT INR D-Dimer ABG pH 7.479 H ABG pO2 121.3 H ABG HCO3 ABG O2 Saturation ABG Base Excess ABG Hemoglobin 7.3 L Oxyhemoglobin Sodium Potassium Chloride 112.5 H Carbon Dioxide BUN 33 H Creatinine Glucose 161 H POC Glucose 135 H Lactic Acid Calcium Phosphorus Magnesium AST 251 H ALT 481 H Alkaline Phosphatase Lactate Dehydrogenase Troponin T C-Reactive Protein NT-Pro-B Natriuret Pep Total Protein 5.0 L Albumin 2.8 L LDL Cholesterol Direct Vitamin B12 Fluid Glucose Fluid Total Protein Vancomycin Trough Crossmatch 11/09/21 11/09/21 11/09/21 11:33 16:32 23:28 WBC RBC Hgb Hct MCV MCH MCHC RDW Plt Count Seg Neuts % (Manual) Lymphocytes % (Manual) Seg Neutrophils # Man Lymphocytes # (Manual) Monocytes # (Manual) PT INR D-Dimer ABG pH ABG pO2 ABG HCO3 ABG O2 Saturation ABG Base Excess ABG Hemoglobin Oxyhemoglobin Sodium Potassium Chloride Carbon Dioxide BUN Creatinine Glucose POC Glucose 132 H 133 H 143 H Lactic Acid Calcium Phosphorus Magnesium AST ALT Alkaline Phosphatase Lactate Dehydrogenase Troponin T C-Reactive Protein NT-Pro-B Natriuret Pep Total Protein Albumin LDL Cholesterol Direct Vitamin B12 Fluid Glucose Fluid Total Protein Vancomycin Trough Crossmatch 11/10/21 11/10/21 11/10/21 04:00 04:00 05:35 WBC 16.0 H RBC 3.61 L Hgb 8.0 L Hct 27.1 L MCV 75 L MCH 22 L MCHC RDW 20.4 H Plt Count Seg Neuts % (Manual) Lymphocytes % (Manual) Seg Neutrophils # Man Lymphocytes # (Manual) Monocytes # (Manual) PT INR D-Dimer ABG pH ABG pO2 ABG HCO3 ABG O2 Saturation ABG Base Excess ABG Hemoglobin Oxyhemoglobin Sodium 149 H Potassium Chloride 114.1 H Carbon Dioxide BUN 31 H Creatinine Glucose 148 H POC Glucose 132 H Lactic Acid Calcium 8.2 L Phosphorus Magnesium AST ALT Alkaline Phosphatase Lactate Dehydrogenase Troponin T C-Reactive Protein NT-Pro-B Natriuret Pep Total Protein Albumin LDL Cholesterol Direct Vitamin B12 Fluid Glucose Fluid Total Protein Vancomycin Trough Crossmatch 11/10/21 11/10/21 11/10/21 11:31 14:08 15:35 WBC RBC Hgb Hct MCV MCH MCHC RDW Plt Count Seg Neuts % (Manual) Lymphocytes % (Manual) Seg Neutrophils # Man Lymphocytes # (Manual) Monocytes # (Manual) PT INR D-Dimer ABG pH ABG pO2 126.6 H ABG HCO3 ABG O2 Saturation ABG Base Excess ABG Hemoglobin 7.4 L Oxyhemoglobin Sodium Potassium Chloride Carbon Dioxide BUN Creatinine Glucose POC Glucose 147 H Lactic Acid Calcium Phosphorus Magnesium AST ALT Alkaline Phosphatase Lactate Dehydrogenase Troponin T C-Reactive Protein NT-Pro-B Natriuret Pep Total Protein Albumin LDL Cholesterol Direct Vitamin B12 1823 H Fluid Glucose Fluid Total Protein Vancomycin Trough Crossmatch 11/10/21 11/11/21 11/11/21 17:53 00:55 04:28 WBC RBC Hgb Hct MCV MCH MCHC RDW Plt Count Seg Neuts % (Manual) Lymphocytes % (Manual) Seg Neutrophils # Man Lymphocytes # (Manual) Monocytes # (Manual) PT INR D-Dimer ABG pH ABG pO2 ABG HCO3 ABG O2 Saturation ABG Base Excess ABG Hemoglobin Oxyhemoglobin Sodium 149 H Potassium Chloride 112.2 H Carbon Dioxide BUN 34 H Creatinine Glucose 148 H POC Glucose 140 H 145 H Lactic Acid Calcium 7.9 L Phosphorus Magnesium AST 53 H ALT 203 H Alkaline Phosphatase Lactate Dehydrogenase Troponin T C-Reactive Protein NT-Pro-B Natriuret Pep Total Protein 4.9 L Albumin 2.6 L LDL Cholesterol Direct Vitamin B12 Fluid Glucose Fluid Total Protein Vancomycin Trough Crossmatch 11/11/21 11/11/21 11/11/21 04:28 04:28 05:28 WBC 20.9 H RBC 3.47 L Hgb 7.5 L Hct 26.0 L MCV 75 L MCH 22 L MCHC 29 L RDW 21.6 H Plt Count 132 L Seg Neuts % (Manual) Lymphocytes % (Manual) Seg Neutrophils # Man Lymphocytes # (Manual) Monocytes # (Manual) PT INR D-Dimer 2655.00 H ABG pH ABG pO2 ABG HCO3 ABG O2 Saturation ABG Base Excess ABG Hemoglobin Oxyhemoglobin Sodium Potassium Chloride Carbon Dioxide BUN Creatinine Glucose POC Glucose 154 H Lactic Acid Calcium Phosphorus Magnesium AST ALT Alkaline Phosphatase Lactate Dehydrogenase Troponin T C-Reactive Protein NT-Pro-B Natriuret Pep Total Protein Albumin LDL Cholesterol Direct Vitamin B12 Fluid Glucose Fluid Total Protein Vancomycin Trough Crossmatch 11/11/21 11/11/21 11/12/21 12:38 18:13 00:14 WBC RBC Hgb Hct MCV MCH MCHC RDW Plt Count Seg Neuts % (Manual) Lymphocytes % (Manual) Seg Neutrophils # Man Lymphocytes # (Manual) Monocytes # (Manual) PT INR D-Dimer ABG pH ABG pO2 ABG HCO3 ABG O2 Saturation ABG Base Excess ABG Hemoglobin Oxyhemoglobin Sodium Potassium Chloride Carbon Dioxide BUN Creatinine Glucose POC Glucose 137 H 108 H 137 H Lactic Acid Calcium Phosphorus Magnesium AST ALT Alkaline Phosphatase Lactate Dehydrogenase Troponin T C-Reactive Protein NT-Pro-B Natriuret Pep Total Protein Albumin LDL Cholesterol Direct Vitamin B12 Fluid Glucose Fluid Total Protein Vancomycin Trough Crossmatch 11/12/21 11/12/21 11/12/21 05:40 06:24 11:12 WBC RBC Hgb Hct MCV MCH MCHC RDW Plt Count Seg Neuts % (Manual) Lymphocytes % (Manual) Seg Neutrophils # Man Lymphocytes # (Manual) Monocytes # (Manual) PT INR D-Dimer ABG pH 7.586 H ABG pO2 150.6 H ABG HCO3 27.2 H ABG O2 Saturation 99.1 H ABG Base Excess 5.2 H ABG Hemoglobin 7.5 L Oxyhemoglobin Sodium Potassium Chloride Carbon Dioxide BUN Creatinine Glucose POC Glucose 132 H 140 H Lactic Acid Calcium Phosphorus Magnesium AST ALT Alkaline Phosphatase Lactate Dehydrogenase Troponin T C-Reactive Protein NT-Pro-B Natriuret Pep Total Protein Albumin LDL Cholesterol Direct Vitamin B12 Fluid Glucose Fluid Total Protein Vancomycin Trough Crossmatch 11/12/21 11/12/21 11/12/21 14:50 14:50 17:13 WBC 19.8 H RBC 3.27 L Hgb 7.1 L Hct 24.5 L MCV 75 L MCH 22 L MCHC 29 L RDW 22.3 H Plt Count Seg Neuts % (Manual) Lymphocytes % (Manual) Seg Neutrophils # Man Lymphocytes # (Manual) Monocytes # (Manual) PT INR D-Dimer ABG pH ABG pO2 ABG HCO3 ABG O2 Saturation ABG Base Excess ABG Hemoglobin Oxyhemoglobin Sodium 150 H Potassium 3.3 L Chloride 112.0 H Carbon Dioxide BUN 40 H Creatinine Glucose 151 H POC Glucose 121 H Lactic Acid Calcium 7.4 L Phosphorus 1.70 L Magnesium 1.40 L AST ALT Alkaline Phosphatase Lactate Dehydrogenase Troponin T C-Reactive Protein NT-Pro-B Natriuret Pep Total Protein Albumin LDL Cholesterol Direct Vitamin B12 Fluid Glucose Fluid Total Protein Vancomycin Trough Crossmatch 11/12/21 11/13/21 11/13/21 23:19 05:34 06:30 WBC RBC Hgb Hct MCV MCH MCHC RDW Plt Count Seg Neuts % (Manual) Lymphocytes % (Manual) Seg Neutrophils # Man Lymphocytes # (Manual) Monocytes # (Manual) PT INR D-Dimer ABG pH ABG pO2 ABG HCO3 ABG O2 Saturation ABG Base Excess ABG Hemoglobin Oxyhemoglobin Sodium 149 H Potassium Chloride 60.0 L Carbon Dioxide BUN 40 H Creatinine Glucose 146 H POC Glucose 113 H 132 H Lactic Acid Calcium 7.3 L Phosphorus Magnesium 2.40 H AST ALT 72 H Alkaline Phosphatase Lactate Dehydrogenase Troponin T C-Reactive Protein NT-Pro-B Natriuret Pep Total Protein 5.2 L Albumin 2.2 L LDL Cholesterol Direct Vitamin B12 Fluid Glucose Fluid Total Protein Vancomycin Trough Crossmatch 11/13/21 11/13/21 11/13/21 06:30 08:30 11:19 WBC 21.2 H RBC 3.12 L Hgb 6.8 L Hct 23.2 L MCV 74 L MCH 22 L MCHC 29 L RDW 22.2 H Plt Count 135 L Seg Neuts % (Manual) Lymphocytes % (Manual) Seg Neutrophils # Man Lymphocytes # (Manual) Monocytes # (Manual) PT INR D-Dimer ABG pH ABG pO2 ABG HCO3 ABG O2 Saturation ABG Base Excess ABG Hemoglobin Oxyhemoglobin Sodium Potassium Chloride Carbon Dioxide BUN Creatinine Glucose POC Glucose 136 H Lactic Acid Calcium Phosphorus Magnesium AST ALT Alkaline Phosphatase Lactate Dehydrogenase Troponin T C-Reactive Protein NT-Pro-B Natriuret Pep Total Protein Albumin LDL Cholesterol Direct Vitamin B12 Fluid Glucose Fluid Total Protein Vancomycin Trough Crossmatch See Detail 11/13/21 11/14/21 11/14/21 18:21 00:01 04:46 WBC 20.0 H RBC 3.41 L Hgb 7.9 L Hct 26.8 L MCV MCH 23 L MCHC 29 L RDW 24.0 H Plt Count Seg Neuts % (Manual) Lymphocytes % (Manual) Seg Neutrophils # Man Lymphocytes # (Manual) Monocytes # (Manual) PT INR D-Dimer ABG pH ABG pO2 ABG HCO3 ABG O2 Saturation ABG Base Excess ABG Hemoglobin Oxyhemoglobin Sodium Potassium Chloride Carbon Dioxide BUN Creatinine Glucose POC Glucose 149 H 141 H Lactic Acid Calcium Phosphorus Magnesium AST ALT Alkaline Phosphatase Lactate Dehydrogenase Troponin T C-Reactive Protein NT-Pro-B Natriuret Pep Total Protein Albumin LDL Cholesterol Direct Vitamin B12 Fluid Glucose Fluid Total Protein Vancomycin Trough Crossmatch 11/14/21 11/14/21 11/14/21 04:46 05:10 11:10 WBC RBC Hgb Hct MCV MCH MCHC RDW Plt Count Seg Neuts % (Manual) Lymphocytes % (Manual) Seg Neutrophils # Man Lymphocytes # (Manual) Monocytes # (Manual) PT INR D-Dimer ABG pH ABG pO2 ABG HCO3 ABG O2 Saturation ABG Base Excess ABG Hemoglobin Oxyhemoglobin Sodium 148 H Potassium Chloride 113.1 H Carbon Dioxide BUN 43 H Creatinine Glucose 140 H POC Glucose 132 H 133 H Lactic Acid Calcium 7.5 L Phosphorus Magnesium AST ALT Alkaline Phosphatase Lactate Dehydrogenase Troponin T C-Reactive Protein NT-Pro-B Natriuret Pep Total Protein Albumin LDL Cholesterol Direct Vitamin B12 Fluid Glucose Fluid Total Protein Vancomycin Trough Crossmatch 11/14/21 11/14/21 11/14/21 16:14 17:48 23:23 WBC RBC Hgb Hct MCV MCH MCHC RDW Plt Count Seg Neuts % (Manual) Lymphocytes % (Manual) Seg Neutrophils # Man Lymphocytes # (Manual) Monocytes # (Manual) PT INR D-Dimer ABG pH ABG pO2 ABG HCO3 28.0 H ABG O2 Saturation ABG Base Excess 3.1 H ABG Hemoglobin 5.8 L Oxyhemoglobin 94.8 L Sodium Potassium Chloride Carbon Dioxide BUN Creatinine Glucose POC Glucose 130 H 136 H Lactic Acid Calcium Phosphorus Magnesium AST ALT Alkaline Phosphatase Lactate Dehydrogenase Troponin T C-Reactive Protein NT-Pro-B Natriuret Pep Total Protein Albumin LDL Cholesterol Direct Vitamin B12 Fluid Glucose Fluid Total Protein Vancomycin Trough Crossmatch 11/15/21 11/15/21 11/15/21 05:20 05:50 05:50 WBC 19.9 H RBC 3.50 L Hgb 8.2 L Hct 27.9 L MCV MCH 23 L MCHC 29 L RDW 24.9 H Plt Count Seg Neuts % (Manual) Lymphocytes % (Manual) Seg Neutrophils # Man Lymphocytes # (Manual) Monocytes # (Manual) PT INR D-Dimer ABG pH ABG pO2 ABG HCO3 ABG O2 Saturation ABG Base Excess ABG Hemoglobin Oxyhemoglobin Sodium 149 H Potassium Chloride 112.0 H Carbon Dioxide BUN 48 H Creatinine Glucose 152 H POC Glucose 137 H Lactic Acid Calcium 7.9 L Phosphorus Magnesium AST ALT Alkaline Phosphatase Lactate Dehydrogenase Troponin T C-Reactive Protein NT-Pro-B Natriuret Pep Total Protein Albumin LDL Cholesterol Direct Vitamin B12 Fluid Glucose Fluid Total Protein Vancomycin Trough Crossmatch 11/15/21 11/15/21 11/15/21 12:12 17:07 23:24 WBC RBC Hgb Hct MCV MCH MCHC RDW Plt Count Seg Neuts % (Manual) Lymphocytes % (Manual) Seg Neutrophils # Man Lymphocytes # (Manual) Monocytes # (Manual) PT INR D-Dimer ABG pH ABG pO2 ABG HCO3 ABG O2 Saturation ABG Base Excess ABG Hemoglobin Oxyhemoglobin Sodium Potassium Chloride Carbon Dioxide BUN Creatinine Glucose POC Glucose 114 H 135 H 123 H Lactic Acid Calcium Phosphorus Magnesium AST ALT Alkaline Phosphatase Lactate Dehydrogenase Troponin T C-Reactive Protein NT-Pro-B Natriuret Pep Total Protein Albumin LDL Cholesterol Direct Vitamin B12 Fluid Glucose Fluid Total Protein Vancomycin Trough Crossmatch 11/16/21 11/16/21 11/16/21 05:21 10:00 10:00 WBC 21.7 H RBC 2.57 L Hgb 6.0 L Hct 20.2 L D MCV MCH 24 L MCHC RDW 26.3 H Plt Count Seg Neuts % (Manual) Lymphocytes % (Manual) Seg Neutrophils # Man Lymphocytes # (Manual) Monocytes # (Manual) PT INR D-Dimer ABG pH ABG pO2 ABG HCO3 ABG O2 Saturation ABG Base Excess ABG Hemoglobin Oxyhemoglobin Sodium 153 H Potassium Chloride 114.9 H Carbon Dioxide BUN 74 H Creatinine Glucose 155 H POC Glucose 127 H Lactic Acid Calcium 8.1 L Phosphorus Magnesium AST ALT Alkaline Phosphatase Lactate Dehydrogenase Troponin T C-Reactive Protein NT-Pro-B Natriuret Pep Total Protein Albumin LDL Cholesterol Direct Vitamin B12 Fluid Glucose Fluid Total Protein Vancomycin Trough Crossmatch 11/16/21 11/16/21 11/16/21 11:34 14:00 15:25 WBC 17.2 H RBC 2.08 L Hgb 4.7 L* Hct 16.2 L* MCV 78 L MCH 23 L MCHC 29 L RDW 26.0 H Plt Count Seg Neuts % (Manual) 87.0 H Lymphocytes % (Manual) 8.0 L Seg Neutrophils # Man 15.0 H Lymphocytes # (Manual) Monocytes # (Manual) 0.9 H PT INR D-Dimer ABG pH ABG pO2 ABG HCO3 ABG O2 Saturation ABG Base Excess ABG Hemoglobin Oxyhemoglobin Sodium Potassium Chloride Carbon Dioxide BUN Creatinine Glucose POC Glucose 131 H Lactic Acid Calcium Phosphorus Magnesium AST ALT Alkaline Phosphatase Lactate Dehydrogenase Troponin T C-Reactive Protein NT-Pro-B Natriuret Pep Total Protein Albumin LDL Cholesterol Direct Vitamin B12 Fluid Glucose Fluid Total Protein Vancomycin Trough Crossmatch See Detail 11/16/21 11/16/21 11/16/21 15:25 17:21 22:43 WBC RBC Hgb 8.6 L D Hct 27.7 L D MCV MCH MCHC RDW Plt Count Seg Neuts % (Manual) Lymphocytes % (Manual) Seg Neutrophils # Man Lymphocytes # (Manual) Monocytes # (Manual) PT INR D-Dimer ABG pH ABG pO2 ABG HCO3 ABG O2 Saturation ABG Base Excess ABG Hemoglobin Oxyhemoglobin Sodium 148 H Potassium Chloride 113.2 H Carbon Dioxide BUN 84 H Creatinine Glucose 164 H POC Glucose 124 H Lactic Acid Calcium 7.6 L Phosphorus Magnesium AST ALT Alkaline Phosphatase Lactate Dehydrogenase Troponin T C-Reactive Protein NT-Pro-B Natriuret Pep Total Protein Albumin LDL Cholesterol Direct Vitamin B12 Fluid Glucose Fluid Total Protein Vancomycin Trough Crossmatch 11/16/21 11/17/21 11/17/21 23:07 05:33 05:56 WBC 25.1 H RBC 3.47 L Hgb 8.7 L Hct 28.5 L MCV MCH 25 L MCHC RDW 22.3 H Plt Count Seg Neuts % (Manual) Lymphocytes % (Manual) Seg Neutrophils # Man Lymphocytes # (Manual) Monocytes # (Manual) PT INR D-Dimer ABG pH ABG pO2 ABG HCO3 ABG O2 Saturation ABG Base Excess ABG Hemoglobin Oxyhemoglobin Sodium Potassium Chloride Carbon Dioxide BUN Creatinine Glucose POC Glucose 128 H 133 H Lactic Acid Calcium Phosphorus Magnesium AST ALT Alkaline Phosphatase Lactate Dehydrogenase Troponin T C-Reactive Protein NT-Pro-B Natriuret Pep Total Protein Albumin LDL Cholesterol Direct Vitamin B12 Fluid Glucose Fluid Total Protein Vancomycin Trough Crossmatch 11/17/21 11/17/21 11/17/21 05:56 11:00 11:55 WBC RBC Hgb 8.3 L Hct 26.9 L MCV MCH MCHC RDW Plt Count Seg Neuts % (Manual) Lymphocytes % (Manual) Seg Neutrophils # Man Lymphocytes # (Manual) Monocytes # (Manual) PT INR D-Dimer ABG pH ABG pO2 ABG HCO3 ABG O2 Saturation ABG Base Excess ABG Hemoglobin Oxyhemoglobin Sodium 151 H Potassium Chloride 113.6 H Carbon Dioxide BUN 85 H Creatinine Glucose 132 H POC Glucose 121 H Lactic Acid Calcium 7.8 L Phosphorus Magnesium AST ALT Alkaline Phosphatase Lactate Dehydrogenase Troponin T C-Reactive Protein NT-Pro-B Natriuret Pep Total Protein 5.1 L Albumin 2.2 L LDL Cholesterol Direct Vitamin B12 Fluid Glucose Fluid Total Protein Vancomycin Trough Crossmatch 11/17/21 11/17/21 11/18/21 18:04 18:55 00:26 WBC RBC Hgb 7.5 L 7.1 L Hct 24.8 L 23.6 L MCV MCH MCHC RDW Plt Count Seg Neuts % (Manual) Lymphocytes % (Manual) Seg Neutrophils # Man Lymphocytes # (Manual) Monocytes # (Manual) PT INR D-Dimer ABG pH ABG pO2 ABG HCO3 ABG O2 Saturation ABG Base Excess ABG Hemoglobin Oxyhemoglobin Sodium Potassium Chloride Carbon Dioxide BUN Creatinine Glucose POC Glucose 144 H Lactic Acid Calcium Phosphorus Magnesium AST ALT Alkaline Phosphatase Lactate Dehydrogenase Troponin T C-Reactive Protein NT-Pro-B Natriuret Pep Total Protein Albumin LDL Cholesterol Direct Vitamin B12 Fluid Glucose Fluid Total Protein Vancomycin Trough Crossmatch 11/18/21 11/18/21 11/18/21 00:43 05:10 05:10 WBC 12.5 H RBC 2.39 L Hgb 6.1 L Hct 20.2 L MCV MCH 25 L MCHC RDW 23.2 H Plt Count Seg Neuts % (Manual) Lymphocytes % (Manual) Seg Neutrophils # Man Lymphocytes # (Manual) Monocytes # (Manual) PT INR D-Dimer ABG pH ABG pO2 ABG HCO3 ABG O2 Saturation ABG Base Excess ABG Hemoglobin Oxyhemoglobin Sodium 131 L D Potassium 2.9 L* D Chloride 97.8 L Carbon Dioxide BUN 58 H Creatinine Glucose 665 H* POC Glucose 139 H Lactic Acid Calcium 7.0 L Phosphorus 2.20 L D Magnesium 1.50 L AST ALT Alkaline Phosphatase Lactate Dehydrogenase Troponin T C-Reactive Protein NT-Pro-B Natriuret Pep Total Protein Albumin LDL Cholesterol Direct Vitamin B12 Fluid Glucose Fluid Total Protein Vancomycin Trough Crossmatch 11/18/21 11/18/21 11/18/21 05:23 07:10 10:45 WBC RBC Hgb Hct MCV MCH MCHC RDW Plt Count Seg Neuts % (Manual) Lymphocytes % (Manual) Seg Neutrophils # Man Lymphocytes # (Manual) Monocytes # (Manual) PT INR D-Dimer ABG pH ABG pO2 ABG HCO3 ABG O2 Saturation ABG Base Excess ABG Hemoglobin Oxyhemoglobin Sodium 148 H D Potassium 3.1 L Chloride 111.9 H Carbon Dioxide BUN 63 H Creatinine Glucose 141 H POC Glucose 124 H Lactic Acid Calcium 8.1 L D Phosphorus Magnesium AST ALT Alkaline Phosphatase Lactate Dehydrogenase Troponin T C-Reactive Protein NT-Pro-B Natriuret Pep Total Protein Albumin LDL Cholesterol Direct Vitamin B12 Fluid Glucose Fluid Total Protein Vancomycin Trough Crossmatch See Detail 11/18/21 11/19/21 11/19/21 11:57 00:19 04:55 WBC RBC 3.35 L Hgb 9.0 L 8.9 L Hct 28.3 L D 28.1 L MCV MCH 27 L MCHC RDW 20.3 H Plt Count Seg Neuts % (Manual) Lymphocytes % (Manual) Seg Neutrophils # Man Lymphocytes # (Manual) Monocytes # (Manual) PT INR D-Dimer ABG pH ABG pO2 ABG HCO3 ABG O2 Saturation ABG Base Excess ABG Hemoglobin Oxyhemoglobin Sodium Potassium Chloride Carbon Dioxide BUN Creatinine Glucose POC Glucose 119 H Lactic Acid Calcium Phosphorus Magnesium AST ALT Alkaline Phosphatase Lactate Dehydrogenase Troponin T C-Reactive Protein NT-Pro-B Natriuret Pep Total Protein Albumin LDL Cholesterol Direct Vitamin B12 Fluid Glucose Fluid Total Protein Vancomycin Trough Crossmatch 11/19/21 11/19/21 11/20/21 04:55 05:42 00:55 WBC RBC Hgb 9.0 L Hct 28.6 L MCV MCH MCHC RDW Plt Count Seg Neuts % (Manual) Lymphocytes % (Manual) Seg Neutrophils # Man Lymphocytes # (Manual) Monocytes # (Manual) PT INR D-Dimer ABG pH ABG pO2 ABG HCO3 ABG O2 Saturation ABG Base Excess ABG Hemoglobin Oxyhemoglobin Sodium Potassium 3.5 L Chloride 108.6 H Carbon Dioxide BUN 47 H Creatinine Glucose 207 H POC Glucose 63 L Lactic Acid Calcium 7.1 L Phosphorus Magnesium AST ALT Alkaline Phosphatase Lactate Dehydrogenase Troponin T C-Reactive Protein NT-Pro-B Natriuret Pep Total Protein Albumin LDL Cholesterol Direct Vitamin B12 Fluid Glucose Fluid Total Protein Vancomycin Trough Crossmatch 11/20/21 11/20/21 11/20/21 05:40 05:40 Unknown WBC RBC 3.40 L Hgb 9.1 L Hct 28.8 L MCV MCH 27 L MCHC RDW 20.7 H Plt Count Seg Neuts % (Manual) Lymphocytes % (Manual) Seg Neutrophils # Man Lymphocytes # (Manual) Monocytes # (Manual) PT INR D-Dimer ABG pH ABG pO2 ABG HCO3 ABG O2 Saturation ABG Base Excess -2.7 L ABG Hemoglobin 9.5 L Oxyhemoglobin 94.3 L Sodium Potassium 3.5 L Chloride 108.9 H Carbon Dioxide BUN 37 H Creatinine Glucose 117 H POC Glucose Lactic Acid Calcium 7.5 L Phosphorus Magnesium AST ALT Alkaline Phosphatase Lactate Dehydrogenase Troponin T C-Reactive Protein NT-Pro-B Natriuret Pep Total Protein Albumin LDL Cholesterol Direct Vitamin B12 Fluid Glucose Fluid Total Protein Vancomycin Trough Crossmatch 11/21/21 11/21/21 11/21/21 04:30 04:30 16:00 WBC RBC 3.25 L Hgb 8.6 L Hct 28.1 L MCV MCH 26 L MCHC RDW 20.7 H Plt Count Seg Neuts % (Manual) Lymphocytes % (Manual) Seg Neutrophils # Man Lymphocytes # (Manual) Monocytes # (Manual) PT INR D-Dimer ABG pH ABG pO2 114.2 H ABG HCO3 ABG O2 Saturation ABG Base Excess ABG Hemoglobin 9.1 L Oxyhemoglobin Sodium 134 L Potassium Chloride Carbon Dioxide 20 L BUN 34 H Creatinine Glucose POC Glucose Lactic Acid Calcium 7.1 L Phosphorus Magnesium AST ALT Alkaline Phosphatase Lactate Dehydrogenase Troponin T C-Reactive Protein NT-Pro-B Natriuret Pep Total Protein Albumin LDL Cholesterol Direct Vitamin B12 Fluid Glucose Fluid Total Protein Vancomycin Trough Crossmatch 11/22/21 11/22/21 11/22/21 07:07 07:07 23:54 WBC RBC 3.30 L Hgb 9.0 L Hct 28.5 L MCV MCH 27 L MCHC RDW 21.0 H Plt Count Seg Neuts % (Manual) Lymphocytes % (Manual) Seg Neutrophils # Man Lymphocytes # (Manual) Monocytes # (Manual) PT INR D-Dimer ABG pH ABG pO2 ABG HCO3 ABG O2 Saturation ABG Base Excess ABG Hemoglobin Oxyhemoglobin Sodium Potassium Chloride Carbon Dioxide BUN 32 H Creatinine Glucose 106 H POC Glucose 110 H Lactic Acid Calcium 7.5 L Phosphorus Magnesium AST ALT Alkaline Phosphatase Lactate Dehydrogenase Troponin T C-Reactive Protein NT-Pro-B Natriuret Pep Total Protein Albumin LDL Cholesterol Direct Vitamin B12 Fluid Glucose Fluid Total Protein Vancomycin Trough Crossmatch 11/23/21 11/23/21 11/23/21 04:38 04:38 06:01 WBC RBC 3.23 L Hgb 8.8 L Hct 28.0 L MCV MCH 27 L MCHC RDW 21.3 H Plt Count Seg Neuts % (Manual) Lymphocytes % (Manual) Seg Neutrophils # Man Lymphocytes # (Manual) Monocytes # (Manual) PT INR D-Dimer ABG pH ABG pO2 ABG HCO3 ABG O2 Saturation ABG Base Excess ABG Hemoglobin Oxyhemoglobin Sodium 136 L Potassium Chloride Carbon Dioxide 20 L BUN 32 H Creatinine Glucose 109 H POC Glucose 115 H Lactic Acid Calcium 7.7 L Phosphorus Magnesium AST ALT Alkaline Phosphatase Lactate Dehydrogenase Troponin T C-Reactive Protein NT-Pro-B Natriuret Pep Total Protein Albumin LDL Cholesterol Direct Vitamin B12 Fluid Glucose Fluid Total Protein Vancomycin Trough Crossmatch 11/23/21 11/24/21 11/24/21 11:40 00:03 04:13 WBC RBC 3.18 L Hgb 8.5 L Hct 27.5 L MCV MCH 27 L MCHC RDW 21.6 H Plt Count Seg Neuts % (Manual) Lymphocytes % (Manual) Seg Neutrophils # Man Lymphocytes # (Manual) Monocytes # (Manual) PT INR D-Dimer ABG pH ABG pO2 ABG HCO3 ABG O2 Saturation ABG Base Excess ABG Hemoglobin Oxyhemoglobin Sodium Potassium Chloride Carbon Dioxide BUN Creatinine Glucose POC Glucose 117 H 111 H Lactic Acid Calcium Phosphorus Magnesium AST ALT Alkaline Phosphatase Lactate Dehydrogenase Troponin T C-Reactive Protein NT-Pro-B Natriuret Pep Total Protein Albumin LDL Cholesterol Direct Vitamin B12 Fluid Glucose Fluid Total Protein Vancomycin Trough Crossmatch 11/24/21 11/24/21 11/24/21 04:13 05:30 11:10 WBC RBC Hgb Hct MCV MCH MCHC RDW Plt Count Seg Neuts % (Manual) Lymphocytes % (Manual) Seg Neutrophils # Man Lymphocytes # (Manual) Monocytes # (Manual) PT INR D-Dimer ABG pH ABG pO2 ABG HCO3 ABG O2 Saturation ABG Base Excess ABG Hemoglobin Oxyhemoglobin Sodium Potassium Chloride Carbon Dioxide BUN 31 H Creatinine Glucose 101 H POC Glucose 115 H 107 H Lactic Acid Calcium 7.7 L Phosphorus Magnesium AST ALT Alkaline Phosphatase Lactate Dehydrogenase Troponin T C-Reactive Protein NT-Pro-B Natriuret Pep Total Protein Albumin LDL Cholesterol Direct Vitamin B12 Fluid Glucose Fluid Total Protein Vancomycin Trough Crossmatch 11/24/21 11/24/21 11/25/21 16:34 17:57 05:12 WBC RBC 3.11 L Hgb 8.2 L Hct 26.6 L MCV MCH 26 L MCHC RDW 21.3 H Plt Count Seg Neuts % (Manual) Lymphocytes % (Manual) Seg Neutrophils # Man Lymphocytes # (Manual) Monocytes # (Manual) PT INR D-Dimer ABG pH ABG pO2 ABG HCO3 ABG O2 Saturation ABG Base Excess ABG Hemoglobin Oxyhemoglobin Sodium Potassium Chloride Carbon Dioxide BUN Creatinine Glucose POC Glucose 115 H 110 H Lactic Acid Calcium Phosphorus Magnesium AST ALT Alkaline Phosphatase Lactate Dehydrogenase Troponin T C-Reactive Protein NT-Pro-B Natriuret Pep Total Protein Albumin LDL Cholesterol Direct Vitamin B12 Fluid Glucose Fluid Total Protein Vancomycin Trough Crossmatch 11/25/21 11/25/21 11/26/21 05:12 11:20 05:00 WBC RBC 3.30 L Hgb 8.8 L Hct 28.2 L MCV MCH 27 L MCHC RDW 20.7 H Plt Count Seg Neuts % (Manual) Lymphocytes % (Manual) Seg Neutrophils # Man Lymphocytes # (Manual) Monocytes # (Manual) PT INR D-Dimer ABG pH ABG pO2 ABG HCO3 ABG O2 Saturation ABG Base Excess ABG Hemoglobin Oxyhemoglobin Sodium Potassium Chloride Carbon Dioxide BUN 32 H Creatinine Glucose 118 H POC Glucose 118 H Lactic Acid Calcium 8.2 L Phosphorus Magnesium AST ALT Alkaline Phosphatase Lactate Dehydrogenase Troponin T C-Reactive Protein NT-Pro-B Natriuret Pep Total Protein Albumin LDL Cholesterol Direct Vitamin B12 Fluid Glucose Fluid Total Protein Vancomycin Trough Crossmatch 11/26/21 11/26/21 11/26/21 05:00 05:00 05:44 WBC RBC Hgb Hct MCV MCH MCHC RDW Plt Count Seg Neuts % (Manual) Lymphocytes % (Manual) Seg Neutrophils # Man Lymphocytes # (Manual) Monocytes # (Manual) PT 16.9 H INR 1.24 H D-Dimer ABG pH ABG pO2 ABG HCO3 ABG O2 Saturation ABG Base Excess ABG Hemoglobin Oxyhemoglobin Sodium Potassium Chloride Carbon Dioxide BUN 31 H Creatinine Glucose 104 H POC Glucose 110 H Lactic Acid Calcium 7.9 L Phosphorus Magnesium AST ALT Alkaline Phosphatase Lactate Dehydrogenase Troponin T C-Reactive Protein NT-Pro-B Natriuret Pep Total Protein Albumin LDL Cholesterol Direct Vitamin B12 Fluid Glucose Fluid Total Protein Vancomycin Trough Crossmatch 11/26/21 11/27/21 11/27/21 23:55 07:40 07:40 WBC RBC 3.18 L Hgb 8.5 L Hct 27.0 L MCV MCH 27 L MCHC RDW 21.2 H Plt Count Seg Neuts % (Manual) Lymphocytes % (Manual) Seg Neutrophils # Man Lymphocytes # (Manual) Monocytes # (Manual) PT INR D-Dimer ABG pH ABG pO2 ABG HCO3 ABG O2 Saturation ABG Base Excess ABG Hemoglobin Oxyhemoglobin Sodium Potassium Chloride Carbon Dioxide BUN 27 H Creatinine Glucose 112 H POC Glucose 63 L Lactic Acid Calcium 7.6 L Phosphorus Magnesium AST ALT Alkaline Phosphatase Lactate Dehydrogenase Troponin T C-Reactive Protein NT-Pro-B Natriuret Pep Total Protein Albumin LDL Cholesterol Direct Vitamin B12 Fluid Glucose Fluid Total Protein Vancomycin Trough Crossmatch 11/27/21 11/27/21 11/27/21 12:04 13:40 13:40 WBC RBC 3.31 L Hgb 8.7 L Hct 28.0 L MCV MCH 26 L MCHC RDW 20.7 H Plt Count Seg Neuts % (Manual) Lymphocytes % (Manual) Seg Neutrophils # Man Lymphocytes # (Manual) Monocytes # (Manual) PT INR D-Dimer ABG pH ABG pO2 ABG HCO3 ABG O2 Saturation ABG Base Excess ABG Hemoglobin Oxyhemoglobin Sodium 136 L Potassium Chloride Carbon Dioxide BUN 25 H Creatinine Glucose 127 H POC Glucose 109 H Lactic Acid Calcium 7.6 L Phosphorus Magnesium 1.40 L AST ALT Alkaline Phosphatase Lactate Dehydrogenase Troponin T C-Reactive Protein NT-Pro-B Natriuret Pep Total Protein Albumin LDL Cholesterol Direct Vitamin B12 Fluid Glucose Fluid Total Protein Vancomycin Trough Crossmatch 11/27/21 11/27/21 11/28/21 17:44 23:33 12:20 WBC RBC Hgb Hct MCV MCH MCHC RDW Plt Count Seg Neuts % (Manual) Lymphocytes % (Manual) Seg Neutrophils # Man Lymphocytes # (Manual) Monocytes # (Manual) PT INR D-Dimer ABG pH ABG pO2 ABG HCO3 ABG O2 Saturation ABG Base Excess ABG Hemoglobin Oxyhemoglobin Sodium Potassium Chloride Carbon Dioxide BUN Creatinine Glucose POC Glucose 107 H 108 H 114 H Lactic Acid Calcium Phosphorus Magnesium AST ALT Alkaline Phosphatase Lactate Dehydrogenase Troponin T C-Reactive Protein NT-Pro-B Natriuret Pep Total Protein Albumin LDL Cholesterol Direct Vitamin B12 Fluid Glucose Fluid Total Protein Vancomycin Trough Crossmatch 11/29/21 11/29/21 11/29/21 00:09 03:20 03:20 WBC RBC 3.05 L Hgb 8.2 L Hct 25.8 L MCV MCH 27 L MCHC RDW 20.9 H Plt Count Seg Neuts % (Manual) Lymphocytes % (Manual) Seg Neutrophils # Man Lymphocytes # (Manual) Monocytes # (Manual) PT INR D-Dimer ABG pH ABG pO2 ABG HCO3 ABG O2 Saturation ABG Base Excess ABG Hemoglobin Oxyhemoglobin Sodium 133 L Potassium Chloride Carbon Dioxide BUN 24 H Creatinine Glucose 137 H POC Glucose 134 H Lactic Acid Calcium 7.4 L Phosphorus Magnesium AST ALT Alkaline Phosphatase Lactate Dehydrogenase Troponin T C-Reactive Protein NT-Pro-B Natriuret Pep Total Protein Albumin LDL Cholesterol Direct Vitamin B12 Fluid Glucose Fluid Total Protein Vancomycin Trough Crossmatch 11/29/21 11/29/21 11/29/21 05:38 11:39 17:11 WBC RBC Hgb Hct MCV MCH MCHC RDW Plt Count Seg Neuts % (Manual) Lymphocytes % (Manual) Seg Neutrophils # Man Lymphocytes # (Manual) Monocytes # (Manual) PT INR D-Dimer ABG pH ABG pO2 ABG HCO3 ABG O2 Saturation ABG Base Excess ABG Hemoglobin Oxyhemoglobin Sodium Potassium Chloride Carbon Dioxide BUN Creatinine Glucose POC Glucose 117 H 143 H 124 H Lactic Acid Calcium Phosphorus Magnesium AST ALT Alkaline Phosphatase Lactate Dehydrogenase Troponin T C-Reactive Protein NT-Pro-B Natriuret Pep Total Protein Albumin LDL Cholesterol Direct Vitamin B12 Fluid Glucose Fluid Total Protein Vancomycin Trough Crossmatch 11/29/21 11/30/21 11/30/21 20:15 05:40 05:40 WBC 12.6 H RBC 3.41 L Hgb 9.1 L Hct 28.9 L MCV MCH 27 L MCHC RDW 20.4 H Plt Count Seg Neuts % (Manual) Lymphocytes % (Manual) Seg Neutrophils # Man Lymphocytes # (Manual) Monocytes # (Manual) PT INR D-Dimer ABG pH ABG pO2 ABG HCO3 ABG O2 Saturation ABG Base Excess ABG Hemoglobin Oxyhemoglobin Sodium Potassium Chloride Carbon Dioxide BUN 24 H Creatinine Glucose 131 H POC Glucose Lactic Acid Calcium 7.6 L Phosphorus Magnesium AST ALT Alkaline Phosphatase Lactate Dehydrogenase Troponin T 0.045 H C-Reactive Protein NT-Pro-B Natriuret Pep Total Protein Albumin LDL Cholesterol Direct 25 L Vitamin B12 Fluid Glucose Fluid Total Protein Vancomycin Trough Crossmatch 11/30/21 11/30/21 12/01/21 11:29 16:51 05:00 WBC RBC 2.97 L Hgb 8.0 L Hct 25.0 L MCV MCH 27 L MCHC RDW 20.8 H Plt Count Seg Neuts % (Manual) Lymphocytes % (Manual) Seg Neutrophils # Man Lymphocytes # (Manual) Monocytes # (Manual) PT INR D-Dimer ABG pH ABG pO2 ABG HCO3 ABG O2 Saturation ABG Base Excess ABG Hemoglobin Oxyhemoglobin Sodium Potassium Chloride Carbon Dioxide BUN Creatinine Glucose POC Glucose 123 H 114 H Lactic Acid Calcium Phosphorus Magnesium AST ALT Alkaline Phosphatase Lactate Dehydrogenase Troponin T C-Reactive Protein NT-Pro-B Natriuret Pep Total Protein Albumin LDL Cholesterol Direct Vitamin B12 Fluid Glucose Fluid Total Protein Vancomycin Trough Crossmatch 12/01/21 12/01/21 12/01/21 05:00 05:25 11:54 WBC RBC Hgb Hct MCV MCH MCHC RDW Plt Count Seg Neuts % (Manual) Lymphocytes % (Manual) Seg Neutrophils # Man Lymphocytes # (Manual) Monocytes # (Manual) PT INR D-Dimer ABG pH ABG pO2 ABG HCO3 ABG O2 Saturation ABG Base Excess ABG Hemoglobin Oxyhemoglobin Sodium 136 L Potassium Chloride Carbon Dioxide BUN 24 H Creatinine Glucose 117 H POC Glucose 108 H 107 H Lactic Acid Calcium 7.5 L Phosphorus Magnesium 1.60 L AST ALT Alkaline Phosphatase Lactate Dehydrogenase Troponin T C-Reactive Protein NT-Pro-B Natriuret Pep Total Protein Albumin LDL Cholesterol Direct Vitamin B12 Fluid Glucose Fluid Total Protein Vancomycin Trough Crossmatch 12/01/21 12/02/21 12/02/21 17:40 00:07 04:20 WBC RBC 2.92 L Hgb 7.7 L Hct 24.3 L MCV MCH 26 L MCHC RDW 20.5 H Plt Count Seg Neuts % (Manual) Lymphocytes % (Manual) Seg Neutrophils # Man Lymphocytes # (Manual) Monocytes # (Manual) PT INR D-Dimer ABG pH ABG pO2 ABG HCO3 ABG O2 Saturation ABG Base Excess ABG Hemoglobin Oxyhemoglobin Sodium Potassium Chloride Carbon Dioxide BUN Creatinine Glucose POC Glucose 123 H 110 H Lactic Acid Calcium Phosphorus Magnesium AST ALT Alkaline Phosphatase Lactate Dehydrogenase Troponin T C-Reactive Protein NT-Pro-B Natriuret Pep Total Protein Albumin LDL Cholesterol Direct Vitamin B12 Fluid Glucose Fluid Total Protein Vancomycin Trough Crossmatch 12/02/21 12/02/21 12/02/21 04:20 11:17 18:20 WBC RBC Hgb Hct MCV MCH MCHC RDW Plt Count Seg Neuts % (Manual) Lymphocytes % (Manual) Seg Neutrophils # Man Lymphocytes # (Manual) Monocytes # (Manual) PT INR D-Dimer ABG pH ABG pO2 ABG HCO3 ABG O2 Saturation ABG Base Excess ABG Hemoglobin Oxyhemoglobin Sodium 135 L Potassium Chloride Carbon Dioxide BUN 26 H Creatinine Glucose 121 H POC Glucose 117 H 113 H Lactic Acid Calcium 7.4 L Phosphorus Magnesium AST ALT Alkaline Phosphatase Lactate Dehydrogenase Troponin T C-Reactive Protein NT-Pro-B Natriuret Pep Total Protein Albumin LDL Cholesterol Direct Vitamin B12 Fluid Glucose Fluid Total Protein Vancomycin Trough Crossmatch 12/03/21 12/03/21 12/03/21 00:12 04:00 04:00 WBC RBC 2.99 L Hgb 7.8 L Hct 24.6 L MCV MCH 26 L MCHC RDW 20.2 H Plt Count Seg Neuts % (Manual) Lymphocytes % (Manual) Seg Neutrophils # Man Lymphocytes # (Manual) Monocytes # (Manual) PT INR D-Dimer ABG pH ABG pO2 ABG HCO3 ABG O2 Saturation ABG Base Excess ABG Hemoglobin Oxyhemoglobin Sodium 136 L Potassium Chloride Carbon Dioxide BUN 27 H Creatinine Glucose 133 H POC Glucose 121 H Lactic Acid Calcium 7.5 L Phosphorus Magnesium AST ALT Alkaline Phosphatase Lactate Dehydrogenase Troponin T C-Reactive Protein NT-Pro-B Natriuret Pep Total Protein Albumin LDL Cholesterol Direct Vitamin B12 Fluid Glucose Fluid Total Protein Vancomycin Trough Crossmatch 12/03/21 12/03/21 12/03/21 06:30 11:13 16:00 WBC RBC Hgb Hct MCV MCH MCHC RDW Plt Count Seg Neuts % (Manual) Lymphocytes % (Manual) Seg Neutrophils # Man Lymphocytes # (Manual) Monocytes # (Manual) PT INR D-Dimer ABG pH ABG pO2 ABG HCO3 ABG O2 Saturation ABG Base Excess ABG Hemoglobin Oxyhemoglobin Sodium Potassium Chloride Carbon Dioxide BUN Creatinine Glucose POC Glucose 129 H 125 H 125 H Lactic Acid Calcium Phosphorus Magnesium AST ALT Alkaline Phosphatase Lactate Dehydrogenase Troponin T C-Reactive Protein NT-Pro-B Natriuret Pep Total Protein Albumin LDL Cholesterol Direct Vitamin B12 Fluid Glucose Fluid Total Protein Vancomycin Trough Crossmatch 12/03/21 12/04/21 12/04/21 23:32 04:00 05:36 WBC RBC Hgb Hct MCV MCH MCHC RDW Plt Count Seg Neuts % (Manual) Lymphocytes % (Manual) Seg Neutrophils # Man Lymphocytes # (Manual) Monocytes # (Manual) PT INR D-Dimer ABG pH ABG pO2 ABG HCO3 ABG O2 Saturation ABG Base Excess ABG Hemoglobin Oxyhemoglobin Sodium Potassium 3.5 L Chloride Carbon Dioxide BUN 26 H Creatinine 0.5 L Glucose 151 H POC Glucose 133 H 142 H Lactic Acid Calcium 8.3 L Phosphorus Magnesium AST ALT Alkaline Phosphatase Lactate Dehydrogenase Troponin T C-Reactive Protein NT-Pro-B Natriuret Pep Total Protein Albumin LDL Cholesterol Direct Vitamin B12 Fluid Glucose Fluid Total Protein Vancomycin Trough Crossmatch 12/04/21 12/04/21 12/05/21 11:24 15:58 04:36 WBC RBC Hgb Hct MCV MCH MCHC RDW Plt Count Seg Neuts % (Manual) Lymphocytes % (Manual) Seg Neutrophils # Man Lymphocytes # (Manual) Monocytes # (Manual) PT INR D-Dimer ABG pH ABG pO2 ABG HCO3 ABG O2 Saturation ABG Base Excess ABG Hemoglobin Oxyhemoglobin Sodium Potassium Chloride Carbon Dioxide BUN 21 H Creatinine 0.5 L Glucose 119 H POC Glucose 130 H 111 H Lactic Acid Calcium 8.3 L Phosphorus Magnesium AST ALT Alkaline Phosphatase Lactate Dehydrogenase Troponin T C-Reactive Protein NT-Pro-B Natriuret Pep Total Protein Albumin LDL Cholesterol Direct Vitamin B12 Fluid Glucose Fluid Total Protein Vancomycin Trough Crossmatch 12/05/21 12/05/21 12/05/21 05:15 10:40 11:12 WBC RBC 2.98 L Hgb 8.1 L Hct 24.6 L MCV MCH 27 L MCHC RDW 20.8 H Plt Count Seg Neuts % (Manual) Lymphocytes % (Manual) Seg Neutrophils # Man Lymphocytes # (Manual) Monocytes # (Manual) PT INR D-Dimer ABG pH ABG pO2 ABG HCO3 ABG O2 Saturation ABG Base Excess ABG Hemoglobin Oxyhemoglobin Sodium Potassium Chloride Carbon Dioxide BUN Creatinine Glucose POC Glucose 107 H 110 H Lactic Acid Calcium Phosphorus Magnesium AST ALT Alkaline Phosphatase Lactate Dehydrogenase Troponin T C-Reactive Protein NT-Pro-B Natriuret Pep Total Protein Albumin LDL Cholesterol Direct Vitamin B12 Fluid Glucose Fluid Total Protein Vancomycin Trough Crossmatch 12/05/21 12/06/21 12/06/21 23:39 04:25 04:25 WBC RBC 2.95 L Hgb 7.9 L Hct 24.7 L MCV MCH 27 L MCHC RDW 20.9 H Plt Count Seg Neuts % (Manual) Lymphocytes % (Manual) Seg Neutrophils # Man Lymphocytes # (Manual) Monocytes # (Manual) PT INR D-Dimer ABG pH ABG pO2 ABG HCO3 ABG O2 Saturation ABG Base Excess ABG Hemoglobin Oxyhemoglobin Sodium Potassium Chloride Carbon Dioxide BUN 22 H Creatinine 0.5 L Glucose 136 H POC Glucose 118 H Lactic Acid Calcium 8.2 L Phosphorus Magnesium AST ALT Alkaline Phosphatase Lactate Dehydrogenase Troponin T C-Reactive Protein NT-Pro-B Natriuret Pep Total Protein Albumin LDL Cholesterol Direct Vitamin B12 Fluid Glucose Fluid Total Protein Vancomycin Trough Crossmatch 12/06/21 12/06/21 12/07/21 05:28 11:27 04:00 WBC RBC Hgb 7.2 L Hct 21.8 L MCV MCH MCHC RDW Plt Count Seg Neuts % (Manual) Lymphocytes % (Manual) Seg Neutrophils # Man Lymphocytes # (Manual) Monocytes # (Manual) PT INR D-Dimer ABG pH ABG pO2 ABG HCO3 ABG O2 Saturation ABG Base Excess ABG Hemoglobin Oxyhemoglobin Sodium Potassium Chloride Carbon Dioxide BUN Creatinine Glucose POC Glucose 142 H 126 H Lactic Acid Calcium Phosphorus Magnesium AST ALT Alkaline Phosphatase Lactate Dehydrogenase Troponin T C-Reactive Protein NT-Pro-B Natriuret Pep Total Protein Albumin LDL Cholesterol Direct Vitamin B12 Fluid Glucose Fluid Total Protein Vancomycin Trough Crossmatch 12/07/21 12/07/21 12/07/21 04:00 05:30 11:12 WBC RBC Hgb Hct MCV MCH MCHC RDW Plt Count Seg Neuts % (Manual) Lymphocytes % (Manual) Seg Neutrophils # Man Lymphocytes # (Manual) Monocytes # (Manual) PT INR D-Dimer ABG pH ABG pO2 ABG HCO3 ABG O2 Saturation ABG Base Excess ABG Hemoglobin Oxyhemoglobin Sodium Potassium Chloride Carbon Dioxide BUN 22 H Creatinine Glucose 119 H POC Glucose 121 H 124 H Lactic Acid Calcium 8.0 L Phosphorus Magnesium AST ALT Alkaline Phosphatase Lactate Dehydrogenase Troponin T C-Reactive Protein NT-Pro-B Natriuret Pep Total Protein Albumin LDL Cholesterol Direct Vitamin B12 Fluid Glucose Fluid Total Protein Vancomycin Trough Crossmatch 12/08/21 12/08/21 12/08/21 04:00 04:00 05:39 WBC RBC 2.81 L Hgb 7.7 L Hct 23.5 L MCV MCH MCHC RDW 21.2 H Plt Count Seg Neuts % (Manual) Lymphocytes % (Manual) Seg Neutrophils # Man Lymphocytes # (Manual) Monocytes # (Manual) PT INR D-Dimer ABG pH ABG pO2 ABG HCO3 ABG O2 Saturation ABG Base Excess ABG Hemoglobin Oxyhemoglobin Sodium 135 L Potassium Chloride Carbon Dioxide BUN 23 H Creatinine Glucose 109 H POC Glucose 112 H Lactic Acid Calcium Phosphorus Magnesium AST ALT Alkaline Phosphatase Lactate Dehydrogenase Troponin T C-Reactive Protein NT-Pro-B Natriuret Pep Total Protein Albumin LDL Cholesterol Direct Vitamin B12 Fluid Glucose Fluid Total Protein Vancomycin Trough Crossmatch 12/08/21 12/09/21 12/09/21 11:03 04:20 04:20 WBC RBC 2.67 L Hgb 7.6 L Hct 22.1 L MCV MCH MCHC RDW 20.8 H Plt Count Seg Neuts % (Manual) Lymphocytes % (Manual) Seg Neutrophils # Man Lymphocytes # (Manual) Monocytes # (Manual) PT INR D-Dimer ABG pH ABG pO2 ABG HCO3 ABG O2 Saturation ABG Base Excess ABG Hemoglobin Oxyhemoglobin Sodium 135 L Potassium Chloride 97.8 L Carbon Dioxide BUN 26 H Creatinine Glucose 119 H POC Glucose 108 H Lactic Acid Calcium 7.7 L Phosphorus Magnesium AST ALT Alkaline Phosphatase Lactate Dehydrogenase Troponin T C-Reactive Protein NT-Pro-B Natriuret Pep Total Protein Albumin LDL Cholesterol Direct Vitamin B12 Fluid Glucose Fluid Total Protein Vancomycin Trough Crossmatch 12/09/21 12/10/21 12/10/21 11:26 04:33 11:12 WBC RBC Hgb Hct MCV MCH MCHC RDW Plt Count Seg Neuts % (Manual) Lymphocytes % (Manual) Seg Neutrophils # Man Lymphocytes # (Manual) Monocytes # (Manual) PT INR D-Dimer ABG pH ABG pO2 ABG HCO3 ABG O2 Saturation ABG Base Excess ABG Hemoglobin Oxyhemoglobin Sodium 136 L Potassium Chloride Carbon Dioxide BUN 27 H Creatinine Glucose 117 H POC Glucose 110 H 117 H Lactic Acid Calcium 8.2 L Phosphorus Magnesium AST ALT Alkaline Phosphatase Lactate Dehydrogenase Troponin T C-Reactive Protein NT-Pro-B Natriuret Pep Total Protein Albumin LDL Cholesterol Direct Vitamin B12 Fluid Glucose Fluid Total Protein Vancomycin Trough Crossmatch 12/10/21 12/10/21 12/11/21 16:02 23:31 04:35 WBC RBC 2.57 L Hgb 7.0 L Hct 21.4 L MCV MCH 27 L MCHC RDW 21.1 H Plt Count Seg Neuts % (Manual) Lymphocytes % (Manual) Seg Neutrophils # Man Lymphocytes # (Manual) Monocytes # (Manual) PT INR D-Dimer ABG pH ABG pO2 ABG HCO3 ABG O2 Saturation ABG Base Excess ABG Hemoglobin Oxyhemoglobin Sodium Potassium Chloride Carbon Dioxide BUN Creatinine Glucose POC Glucose 137 H 111 H Lactic Acid Calcium Phosphorus Magnesium AST ALT Alkaline Phosphatase Lactate Dehydrogenase Troponin T C-Reactive Protein NT-Pro-B Natriuret Pep Total Protein Albumin LDL Cholesterol Direct Vitamin B12 Fluid Glucose Fluid Total Protein Vancomycin Trough Crossmatch 12/11/21 12/11/2112/11/22 04:35 12:46 16:07 WBC RBC Hgb Hct MCV MCH MCHC RDW Plt Count Seg Neuts % (Manual) Lymphocytes % (Manual) Seg Neutrophils # Man Lymphocytes # (Manual) Monocytes # (Manual) PT INR D-Dimer ABG pH ABG pO2 ABG HCO3 ABG O2 Saturation ABG Base Excess ABG Hemoglobin Oxyhemoglobin Sodium 136 L Potassium Chloride Carbon Dioxide BUN 27 H Creatinine Glucose 112 H POC Glucose 115 H 111 H Lactic Acid Calcium 7.6 L Phosphorus Magnesium AST ALT Alkaline Phosphatase Lactate Dehydrogenase Troponin T C-Reactive Protein NT-Pro-B Natriuret Pep Total Protein Albumin LDL Cholesterol Direct Vitamin B12 Fluid Glucose Fluid Total Protein Vancomycin Trough Crossmatch 12/11/21 12/12/21 12/12/21 23:42 04:30 04:30 WBC RBC 2.60 L Hgb 7.1 L Hct 21.5 L MCV MCH 27 L MCHC RDW 20.3 H Plt Count Seg Neuts % (Manual) Lymphocytes % (Manual) Seg Neutrophils # Man Lymphocytes # (Manual) Monocytes # (Manual) PT INR D-Dimer ABG pH ABG pO2 ABG HCO3 ABG O2 Saturation ABG Base Excess ABG Hemoglobin Oxyhemoglobin Sodium 135 L Potassium Chloride 97.9 L Carbon Dioxide BUN 26 H Creatinine 0.5 L Glucose 138 H POC Glucose 115 H Lactic Acid Calcium 8.2 L Phosphorus Magnesium AST ALT Alkaline Phosphatase Lactate Dehydrogenase Troponin T C-Reactive Protein NT-Pro-B Natriuret Pep Total Protein Albumin LDL Cholesterol Direct Vitamin B12 Fluid Glucose Fluid Total Protein Vancomycin Trough Crossmatch 12/12/21 12/12/21 12/12/21 04:30 05:10 11:51 WBC RBC Hgb Hct MCV MCH MCHC RDW Plt Count Seg Neuts % (Manual) Lymphocytes % (Manual) Seg Neutrophils # Man Lymphocytes # (Manual) Monocytes # (Manual) PT INR D-Dimer ABG pH ABG pO2 ABG HCO3 ABG O2 Saturation ABG Base Excess ABG Hemoglobin Oxyhemoglobin Sodium Potassium Chloride Carbon Dioxide BUN Creatinine Glucose POC Glucose 119 H 119 H Lactic Acid Calcium Phosphorus Magnesium AST ALT Alkaline Phosphatase Lactate Dehydrogenase Troponin T C-Reactive Protein NT-Pro-B Natriuret Pep Total Protein Albumin LDL Cholesterol Direct Vitamin B12 Fluid Glucose Fluid Total Protein Vancomycin Trough Crossmatch See Detail 12/13/21 12/13/21 12/13/21 00:52 04:00 04:00 WBC RBC 2.73 L Hgb 7.4 L Hct 22.8 L MCV MCH 27 L MCHC RDW 20.5 H Plt Count Seg Neuts % (Manual) Lymphocytes % (Manual) Seg Neutrophils # Man Lymphocytes # (Manual) Monocytes # (Manual) PT INR D-Dimer ABG pH ABG pO2 ABG HCO3 ABG O2 Saturation ABG Base Excess ABG Hemoglobin Oxyhemoglobin Sodium 134 L Potassium Chloride 96.7 L Carbon Dioxide BUN 23 H Creatinine 0.5 L Glucose 131 H POC Glucose 131 H Lactic Acid Calcium 8.1 L Phosphorus Magnesium AST ALT Alkaline Phosphatase Lactate Dehydrogenase Troponin T C-Reactive Protein NT-Pro-B Natriuret Pep Total Protein Albumin LDL Cholesterol Direct Vitamin B12 Fluid Glucose Fluid Total Protein Vancomycin Trough Crossmatch 12/13/21 12/13/21 12/13/21 05:23 12:11 17:18 WBC RBC Hgb Hct MCV MCH MCHC RDW Plt Count Seg Neuts % (Manual) Lymphocytes % (Manual) Seg Neutrophils # Man Lymphocytes # (Manual) Monocytes # (Manual) PT INR D-Dimer ABG pH ABG pO2 ABG HCO3 ABG O2 Saturation ABG Base Excess ABG Hemoglobin Oxyhemoglobin Sodium Potassium Chloride Carbon Dioxide BUN Creatinine Glucose POC Glucose 121 H 143 H 148 H Lactic Acid Calcium Phosphorus Magnesium AST ALT Alkaline Phosphatase Lactate Dehydrogenase Troponin T C-Reactive Protein NT-Pro-B Natriuret Pep Total Protein Albumin LDL Cholesterol Direct Vitamin B12 Fluid Glucose Fluid Total Protein Vancomycin Trough Crossmatch 12/14/21 12/14/21 12/14/21 00:54 04:20 04:20 WBC RBC 2.39 L Hgb 6.5 L Hct 20.3 L MCV MCH 27 L MCHC RDW 20.3 H Plt Count Seg Neuts % (Manual) Lymphocytes % (Manual) Seg Neutrophils # Man Lymphocytes # (Manual) Monocytes # (Manual) PT INR D-Dimer ABG pH ABG pO2 ABG HCO3 ABG O2 Saturation ABG Base Excess ABG Hemoglobin Oxyhemoglobin Sodium 130 L Potassium Chloride 93.5 L Carbon Dioxide BUN 25 H Creatinine Glucose 123 H POC Glucose 123 H Lactic Acid Calcium 8.0 L Phosphorus Magnesium AST ALT Alkaline Phosphatase Lactate Dehydrogenase Troponin T C-Reactive Protein NT-Pro-B Natriuret Pep Total Protein Albumin LDL Cholesterol Direct Vitamin B12 Fluid Glucose Fluid Total Protein Vancomycin Trough Crossmatch 12/14/21 12/14/21 12/14/21 05:06 08:17 10:30 WBC RBC Hgb Hct MCV MCH MCHC RDW Plt Count Seg Neuts % (Manual) Lymphocytes % (Manual) Seg Neutrophils # Man Lymphocytes # (Manual) Monocytes # (Manual) PT INR D-Dimer ABG pH ABG pO2 ABG HCO3 ABG O2 Saturation ABG Base Excess ABG Hemoglobin Oxyhemoglobin Sodium Potassium Chloride Carbon Dioxide BUN Creatinine Glucose POC Glucose 131 H 119 H Lactic Acid Calcium Phosphorus Magnesium AST ALT Alkaline Phosphatase Lactate Dehydrogenase Troponin T C-Reactive Protein NT-Pro-B Natriuret Pep Total Protein Albumin LDL Cholesterol Direct Vitamin B12 Fluid Glucose Fluid Total Protein Vancomycin Trough Crossmatch See Detail 12/14/21 12/14/21 12/14/21 12:15 16:37 23:27 WBC RBC Hgb Hct MCV MCH MCHC RDW Plt Count Seg Neuts % (Manual) Lymphocytes % (Manual) Seg Neutrophils # Man Lymphocytes # (Manual) Monocytes # (Manual) PT INR D-Dimer ABG pH ABG pO2 ABG HCO3 ABG O2 Saturation ABG Base Excess ABG Hemoglobin Oxyhemoglobin Sodium Potassium Chloride Carbon Dioxide BUN Creatinine Glucose POC Glucose 147 H 141 H 130 H Lactic Acid Calcium Phosphorus Magnesium AST ALT Alkaline Phosphatase Lactate Dehydrogenase Troponin T C-Reactive Protein NT-Pro-B Natriuret Pep Total Protein Albumin LDL Cholesterol Direct Vitamin B12 Fluid Glucose Fluid Total Protein Vancomycin Trough Crossmatch 12/15/21 12/15/21 12/15/21 05:00 07:00 07:00 WBC 12.3 H RBC 3.27 L Hgb 8.8 L Hct 27.5 L D MCV MCH 27 L MCHC RDW 19.0 H Plt Count Seg Neuts % (Manual) Lymphocytes % (Manual) Seg Neutrophils # Man Lymphocytes # (Manual) Monocytes # (Manual) PT INR D-Dimer ABG pH ABG pO2 ABG HCO3 ABG O2 Saturation ABG Base Excess ABG Hemoglobin Oxyhemoglobin Sodium 134 L Potassium Chloride 95.7 L Carbon Dioxide BUN 28 H Creatinine Glucose 129 H POC Glucose 129 H Lactic Acid Calcium 8.2 L Phosphorus Magnesium AST ALT Alkaline Phosphatase Lactate Dehydrogenase Troponin T C-Reactive Protein NT-Pro-B Natriuret Pep Total Protein Albumin LDL Cholesterol Direct Vitamin B12 Fluid Glucose Fluid Total Protein Vancomycin Trough Crossmatch 12/15/21 12/15/21 12/15/21 11:18 16:00 23:39 WBC RBC Hgb Hct MCV MCH MCHC RDW Plt Count Seg Neuts % (Manual) Lymphocytes % (Manual) Seg Neutrophils # Man Lymphocytes # (Manual) Monocytes # (Manual) PT INR D-Dimer ABG pH ABG pO2 ABG HCO3 ABG O2 Saturation ABG Base Excess ABG Hemoglobin Oxyhemoglobin Sodium Potassium Chloride Carbon Dioxide BUN Creatinine Glucose POC Glucose 139 H 137 H 146 H Lactic Acid Calcium Phosphorus Magnesium AST ALT Alkaline Phosphatase Lactate Dehydrogenase Troponin T C-Reactive Protein NT-Pro-B Natriuret Pep Total Protein Albumin LDL Cholesterol Direct Vitamin B12 Fluid Glucose Fluid Total Protein Vancomycin Trough Crossmatch 12/16/21 12/16/21 12/16/21 05:24 10:21 10:21 WBC 15.3 H RBC 3.24 L Hgb 8.9 L Hct 27.7 L MCV MCH MCHC RDW 19.0 H Plt Count Seg Neuts % (Manual) Lymphocytes % (Manual) Seg Neutrophils # Man Lymphocytes # (Manual) Monocytes # (Manual) PT INR D-Dimer ABG pH ABG pO2 ABG HCO3 ABG O2 Saturation ABG Base Excess ABG Hemoglobin Oxyhemoglobin Sodium 131 L Potassium 3.5 L Chloride 92.7 L Carbon Dioxide BUN 36 H Creatinine Glucose 160 H POC Glucose 121 H Lactic Acid Calcium Phosphorus Magnesium 1.60 L AST ALT Alkaline Phosphatase Lactate Dehydrogenase Troponin T C-Reactive Protein NT-Pro-B Natriuret Pep Total Protein Albumin LDL Cholesterol Direct Vitamin B12 Fluid Glucose Fluid Total Protein Vancomycin Trough Crossmatch 12/16/21 12/16/21 12/16/21 11:21 18:28 20:52 WBC RBC Hgb Hct MCV MCH MCHC RDW Plt Count Seg Neuts % (Manual) Lymphocytes % (Manual) Seg Neutrophils # Man Lymphocytes # (Manual) Monocytes # (Manual) PT INR D-Dimer ABG pH 7.479 H ABG pO2 79.3 L ABG HCO3 27.3 H ABG O2 Saturation ABG Base Excess 3.6 H ABG Hemoglobin 9.1 L Oxyhemoglobin 94.9 L Sodium Potassium Chloride Carbon Dioxide BUN Creatinine Glucose POC Glucose 153 H 132 H Lactic Acid Calcium Phosphorus Magnesium AST ALT Alkaline Phosphatase Lactate Dehydrogenase Troponin T C-Reactive Protein NT-Pro-B Natriuret Pep Total Protein Albumin LDL Cholesterol Direct Vitamin B12 Fluid Glucose Fluid Total Protein Vancomycin Trough Crossmatch 0312/17/21 12/17/21 23:30 04:25 04:25 WBC 12.3 H RBC 2.16 L Hgb 6.0 L Hct 18.1 L* D MCV MCH MCHC RDW 19.4 H Plt Count Seg Neuts % (Manual) Lymphocytes % (Manual) Seg Neutrophils # Man Lymphocytes # (Manual) Monocytes # (Manual) PT INR D-Dimer ABG pH ABG pO2 ABG HCO3 ABG O2 Saturation ABG Base Excess ABG Hemoglobin Oxyhemoglobin Sodium 132 L Potassium 3.2 L Chloride 112.0 H Carbon Dioxide BUN 32 H Creatinine Glucose 122 H POC Glucose 137 H Lactic Acid Calcium 6.8 L D Phosphorus Magnesium AST ALT Alkaline Phosphatase Lactate Dehydrogenase Troponin T C-Reactive Protein NT-Pro-B Natriuret Pep Total Protein Albumin LDL Cholesterol Direct Vitamin B12 Fluid Glucose Fluid Total Protein Vancomycin Trough Crossmatch 12/17/21 12/17/21 12/17/21 05:30 11:49 14:45 WBC RBC Hgb 9.7 L D Hct MCV MCH MCHC RDW Plt Count Seg Neuts % (Manual) Lymphocytes % (Manual) Seg Neutrophils # Man Lymphocytes # (Manual) Monocytes # (Manual) PT INR D-Dimer ABG pH ABG pO2 ABG HCO3 ABG O2 Saturation ABG Base Excess ABG Hemoglobin Oxyhemoglobin Sodium Potassium Chloride Carbon Dioxide BUN Creatinine Glucose POC Glucose 137 H 143 H Lactic Acid Calcium Phosphorus Magnesium AST ALT Alkaline Phosphatase Lactate Dehydrogenase Troponin T C-Reactive Protein NT-Pro-B Natriuret Pep Total Protein Albumin LDL Cholesterol Direct Vitamin B12 Fluid Glucose Fluid Total Protein Vancomycin Trough Crossmatch 12/17/21 12/18/21 12/18/21 17:01 05:04 05:04 WBC 13.8 H RBC 3.44 L Hgb 9.9 L Hct 28.8 L MCV MCH MCHC RDW 18.1 H Plt Count Seg Neuts % (Manual) Lymphocytes % (Manual) Seg Neutrophils # Man Lymphocytes # (Manual) Monocytes # (Manual) PT INR D-Dimer ABG pH ABG pO2 ABG HCO3 ABG O2 Saturation ABG Base Excess ABG Hemoglobin Oxyhemoglobin Sodium 132 L Potassium Chloride 97.4 L Carbon Dioxide BUN 38 H Creatinine Glucose 134 H POC Glucose 132 H Lactic Acid Calcium Phosphorus Magnesium AST ALT Alkaline Phosphatase Lactate Dehydrogenase Troponin T C-Reactive Protein NT-Pro-B Natriuret Pep Total Protein Albumin LDL Cholesterol Direct Vitamin B12 Fluid Glucose Fluid Total Protein Vancomycin Trough Crossmatch 12/18/21 12/18/21 12/18/21 05:28 10:57 16:27 WBC RBC Hgb Hct MCV MCH MCHC RDW Plt Count Seg Neuts % (Manual) Lymphocytes % (Manual) Seg Neutrophils # Man Lymphocytes # (Manual) Monocytes # (Manual) PT INR D-Dimer ABG pH ABG pO2 ABG HCO3 ABG O2 Saturation ABG Base Excess ABG Hemoglobin Oxyhemoglobin Sodium Potassium Chloride Carbon Dioxide BUN Creatinine Glucose POC Glucose 118 H 132 H 130 H Lactic Acid Calcium Phosphorus Magnesium AST ALT Alkaline Phosphatase Lactate Dehydrogenase Troponin T C-Reactive Protein NT-Pro-B Natriuret Pep Total Protein Albumin LDL Cholesterol Direct Vitamin B12 Fluid Glucose Fluid Total Protein Vancomycin Trough Crossmatch 12/19/21 12/19/21 12/19/21 00:02 04:41 04:41 WBC 16.0 H RBC 3.45 L Hgb 9.7 L Hct 29.1 L MCV MCH MCHC RDW 17.8 H Plt Count Seg Neuts % (Manual) Lymphocytes % (Manual) Seg Neutrophils # Man Lymphocytes # (Manual) Monocytes # (Manual) PT INR D-Dimer ABG pH ABG pO2 ABG HCO3 ABG O2 Saturation ABG Base Excess ABG Hemoglobin Oxyhemoglobin Sodium 133 L Potassium Chloride 97.9 L Carbon Dioxide BUN 36 H Creatinine 0.5 L Glucose 126 H POC Glucose 127 H Lactic Acid Calcium 8.3 L Phosphorus Magnesium AST ALT Alkaline Phosphatase Lactate Dehydrogenase Troponin T C-Reactive Protein NT-Pro-B Natriuret Pep Total Protein Albumin LDL Cholesterol Direct Vitamin B12 Fluid Glucose Fluid Total Protein Vancomycin Trough Crossmatch 12/19/21 12/19/21 12/19/21 05:26 12:20 16:43 WBC RBC Hgb Hct MCV MCH MCHC RDW Plt Count Seg Neuts % (Manual) Lymphocytes % (Manual) Seg Neutrophils # Man Lymphocytes # (Manual) Monocytes # (Manual) PT INR D-Dimer ABG pH ABG pO2 ABG HCO3 ABG O2 Saturation ABG Base Excess ABG Hemoglobin Oxyhemoglobin Sodium Potassium Chloride Carbon Dioxide BUN Creatinine Glucose POC Glucose 119 H 145 H 126 H Lactic Acid Calcium Phosphorus Magnesium AST ALT Alkaline Phosphatase Lactate Dehydrogenase Troponin T C-Reactive Protein NT-Pro-B Natriuret Pep Total Protein Albumin LDL Cholesterol Direct Vitamin B12 Fluid Glucose Fluid Total Protein Vancomycin Trough Crossmatch 12/19/21 12/20/21 12/20/21 23:30 04:54 04:54 WBC 12.3 H RBC 3.54 L Hgb 10.0 L Hct 29.5 L MCV MCH MCHC RDW 17.8 H Plt Count Seg Neuts % (Manual) 88.0 H Lymphocytes % (Manual) 6.0 L Seg Neutrophils # Man 10.8 H Lymphocytes # (Manual) 0.7 L Monocytes # (Manual) PT INR D-Dimer ABG pH ABG pO2 ABG HCO3 ABG O2 Saturation ABG Base Excess ABG Hemoglobin Oxyhemoglobin Sodium 131 L Potassium Chloride 96.2 L Carbon Dioxide BUN 36 H Creatinine 0.5 L Glucose 130 H POC Glucose 117 H Lactic Acid Calcium Phosphorus Magnesium AST ALT Alkaline Phosphatase Lactate Dehydrogenase Troponin T C-Reactive Protein NT-Pro-B Natriuret Pep Total Protein Albumin LDL Cholesterol Direct Vitamin B12 Fluid Glucose Fluid Total Protein Vancomycin Trough Crossmatch 12/20/21 12/20/21 12/20/21 05:20 11:51 17:30 WBC RBC Hgb Hct MCV MCH MCHC RDW Plt Count Seg Neuts % (Manual) Lymphocytes % (Manual) Seg Neutrophils # Man Lymphocytes # (Manual) Monocytes # (Manual) PT INR D-Dimer ABG pH ABG pO2 ABG HCO3 ABG O2 Saturation ABG Base Excess ABG Hemoglobin Oxyhemoglobin Sodium Potassium Chloride Carbon Dioxide BUN Creatinine Glucose POC Glucose 126 H 119 H 127 H Lactic Acid Calcium Phosphorus Magnesium AST ALT Alkaline Phosphatase Lactate Dehydrogenase Troponin T C-Reactive Protein NT-Pro-B Natriuret Pep Total Protein Albumin LDL Cholesterol Direct Vitamin B12 Fluid Glucose Fluid Total Protein Vancomycin Trough Crossmatch 12/21/21 12/21/21 12/21/21 00:45 04:21 04:21 WBC RBC 3.47 L Hgb 9.4 L Hct 29.2 L MCV MCH 27 L MCHC RDW 18.1 H Plt Count Seg Neuts % (Manual) Lymphocytes % (Manual) Seg Neutrophils # Man Lymphocytes # (Manual) Monocytes # (Manual) PT INR D-Dimer ABG pH ABG pO2 ABG HCO3 ABG O2 Saturation ABG Base Excess ABG Hemoglobin Oxyhemoglobin Sodium 134 L Potassium Chloride Carbon Dioxide BUN 35 H Creatinine 0.5 L Glucose 122 H POC Glucose 125 H Lactic Acid Calcium 8.2 L Phosphorus Magnesium AST ALT Alkaline Phosphatase Lactate Dehydrogenase Troponin T C-Reactive Protein NT-Pro-B Natriuret Pep Total Protein Albumin LDL Cholesterol Direct Vitamin B12 Fluid Glucose Fluid Total Protein Vancomycin Trough Crossmatch 12/21/21 12/21/21 12/21/21 05:38 11:29 16:16 WBC RBC Hgb Hct MCV MCH MCHC RDW Plt Count Seg Neuts % (Manual) Lymphocytes % (Manual) Seg Neutrophils # Man Lymphocytes # (Manual) Monocytes # (Manual) PT INR D-Dimer ABG pH ABG pO2 ABG HCO3 ABG O2 Saturation ABG Base Excess ABG Hemoglobin Oxyhemoglobin Sodium Potassium Chloride Carbon Dioxide BUN Creatinine Glucose POC Glucose 127 H 121 H 113 H Lactic Acid Calcium Phosphorus Magnesium AST ALT Alkaline Phosphatase Lactate Dehydrogenase Troponin T C-Reactive Protein NT-Pro-B Natriuret Pep Total Protein Albumin LDL Cholesterol Direct Vitamin B12 Fluid Glucose Fluid Total Protein Vancomycin Trough Crossmatch 12/22/21 12/22/21 12/23/21 04:58 04:58 06:40 WBC 11.5 H RBC 3.43 L Hgb 9.8 L Hct 28.7 L MCV MCH MCHC RDW 18.5 H 17.9 H Plt Count Seg Neuts % (Manual) Lymphocytes % (Manual) Seg Neutrophils # Man Lymphocytes # (Manual) Monocytes # (Manual) PT INR D-Dimer ABG pH ABG pO2 ABG HCO3 ABG O2 Saturation ABG Base Excess ABG Hemoglobin Oxyhemoglobin Sodium 130 L Potassium Chloride 97.8 L Carbon Dioxide BUN 31 H Creatinine 0.5 L Glucose 122 H POC Glucose Lactic Acid Calcium 7.9 L Phosphorus Magnesium AST ALT Alkaline Phosphatase Lactate Dehydrogenase Troponin T C-Reactive Protein NT-Pro-B Natriuret Pep Total Protein Albumin LDL Cholesterol Direct Vitamin B12 Fluid Glucose Fluid Total Protein Vancomycin Trough Crossmatch 12/23/21 12/23/21 12/24/21 06:40 23:25 04:24 WBC 11.7 H RBC Hgb 9.8 L Hct MCV MCH 26 L MCHC RDW 18.1 H Plt Count Seg Neuts % (Manual) Lymphocytes % (Manual) Seg Neutrophils # Man Lymphocytes # (Manual) Monocytes # (Manual) PT INR D-Dimer ABG pH ABG pO2 ABG HCO3 ABG O2 Saturation ABG Base Excess ABG Hemoglobin Oxyhemoglobin Sodium 136 L Potassium Chloride Carbon Dioxide BUN 27 H Creatinine 0.4 L Glucose 107 H POC Glucose 110 H Lactic Acid Calcium 8.1 L Phosphorus Magnesium AST ALT Alkaline Phosphatase Lactate Dehydrogenase Troponin T C-Reactive Protein NT-Pro-B Natriuret Pep Total Protein Albumin LDL Cholesterol Direct Vitamin B12 Fluid Glucose Fluid Total Protein Vancomycin Trough Crossmatch 12/24/21 12/24/21 12/24/21 04:24 11:08 15:45 WBC RBC Hgb Hct MCV MCH MCHC RDW Plt Count Seg Neuts % (Manual) Lymphocytes % (Manual) Seg Neutrophils # Man Lymphocytes # (Manual) Monocytes # (Manual) PT INR D-Dimer ABG pH ABG pO2 ABG HCO3 ABG O2 Saturation ABG Base Excess ABG Hemoglobin Oxyhemoglobin Sodium 132 L Potassium Chloride Carbon Dioxide BUN 27 H Creatinine 0.3 L Glucose 108 H POC Glucose 116 H 107 H Lactic Acid Calcium Phosphorus Magnesium AST ALT Alkaline Phosphatase Lactate Dehydrogenase Troponin T C-Reactive Protein NT-Pro-B Natriuret Pep Total Protein Albumin LDL Cholesterol Direct Vitamin B12 Fluid Glucose Fluid Total Protein Vancomycin Trough Crossmatch 12/24/21 12/25/21 12/25/21 23:43 05:29 11:48 WBC RBC Hgb Hct MCV MCH MCHC RDW Plt Count Seg Neuts % (Manual) Lymphocytes % (Manual) Seg Neutrophils # Man Lymphocytes # (Manual) Monocytes # (Manual) PT INR D-Dimer ABG pH ABG pO2 ABG HCO3 ABG O2 Saturation ABG Base Excess ABG Hemoglobin Oxyhemoglobin Sodium Potassium Chloride Carbon Dioxide BUN Creatinine Glucose POC Glucose 123 H 107 H 119 H Lactic Acid Calcium Phosphorus Magnesium AST ALT Alkaline Phosphatase Lactate Dehydrogenase Troponin T C-Reactive Protein NT-Pro-B Natriuret Pep Total Protein Albumin LDL Cholesterol Direct Vitamin B12 Fluid Glucose Fluid Total Protein Vancomycin Trough Crossmatch 12/26/21 12/26/21 12/26/21 00:06 05:56 07:51 WBC 11.4 H RBC 3.40 L Hgb 9.3 L Hct 28.3 L MCV MCH 27 L MCHC RDW 18.2 H Plt Count Seg Neuts % (Manual) Lymphocytes % (Manual) Seg Neutrophils # Man Lymphocytes # (Manual) Monocytes # (Manual) PT INR D-Dimer ABG pH ABG pO2 ABG HCO3 ABG O2 Saturation ABG Base Excess ABG Hemoglobin Oxyhemoglobin Sodium Potassium Chloride Carbon Dioxide BUN Creatinine Glucose POC Glucose 133 H 107 H Lactic Acid Calcium Phosphorus Magnesium AST ALT Alkaline Phosphatase Lactate Dehydrogenase Troponin T C-Reactive Protein NT-Pro-B Natriuret Pep Total Protein Albumin LDL Cholesterol Direct Vitamin B12 Fluid Glucose Fluid Total Protein Vancomycin Trough Crossmatch 12/26/21 12/26/21 12/26/21 07:51 11:43 17:06 WBC RBC Hgb Hct MCV MCH MCHC RDW Plt Count Seg Neuts % (Manual) Lymphocytes % (Manual) Seg Neutrophils # Man Lymphocytes # (Manual) Monocytes # (Manual) PT INR D-Dimer ABG pH ABG pO2 ABG HCO3 ABG O2 Saturation ABG Base Excess ABG Hemoglobin Oxyhemoglobin Sodium 136 L Potassium Chloride Carbon Dioxide BUN 25 H Creatinine 0.3 L Glucose 131 H POC Glucose 119 H 128 H Lactic Acid Calcium Phosphorus Magnesium AST ALT Alkaline Phosphatase Lactate Dehydrogenase Troponin T C-Reactive Protein NT-Pro-B Natriuret Pep Total Protein Albumin LDL Cholesterol Direct Vitamin B12 Fluid Glucose Fluid Total Protein Vancomycin Trough Crossmatch 12/28/21 12/28/21 12/29/21 09:05 09:05 04:40 WBC RBC 3.19 L Hgb 8.9 L Hct 26.4 L MCV MCH 27 L MCHC RDW 18.4 H 17.9 H Plt Count Seg Neuts % (Manual) Lymphocytes % (Manual) Seg Neutrophils # Man Lymphocytes # (Manual) Monocytes # (Manual) PT INR D-Dimer ABG pH ABG pO2 ABG HCO3 ABG O2 Saturation ABG Base Excess ABG Hemoglobin Oxyhemoglobin Sodium 135 L Potassium Chloride 97.8 L Carbon Dioxide BUN 18 H Creatinine 0.3 L Glucose POC Glucose Lactic Acid Calcium Phosphorus Magnesium AST ALT Alkaline Phosphatase Lactate Dehydrogenase Troponin T C-Reactive Protein NT-Pro-B Natriuret Pep Total Protein Albumin LDL Cholesterol Direct Vitamin B12 Fluid Glucose Fluid Total Protein Vancomycin Trough Crossmatch 12/29/21 12/29/21 12/30/21 04:40 12:47 04:05 WBC RBC 3.29 L Hgb 8.7 L Hct 27.6 L MCV MCH 27 L MCHC RDW 17.6 H Plt Count Seg Neuts % (Manual) Lymphocytes % (Manual) Seg Neutrophils # Man Lymphocytes # (Manual) Monocytes # (Manual) PT INR D-Dimer ABG pH ABG pO2 ABG HCO3 ABG O2 Saturation ABG Base Excess ABG Hemoglobin Oxyhemoglobin Sodium 136 L Potassium Chloride Carbon Dioxide BUN Creatinine 0.3 L Glucose POC Glucose 67 L Lactic Acid Calcium 8.3 L Phosphorus Magnesium AST ALT Alkaline Phosphatase Lactate Dehydrogenase Troponin T C-Reactive Protein NT-Pro-B Natriuret Pep Total Protein Albumin LDL Cholesterol Direct Vitamin B12 Fluid Glucose Fluid Total Protein Vancomycin Trough Crossmatch 12/30/21 12/31/21 12/31/21 04:05 00:07 04:00 WBC RBC 3.05 L Hgb 8.5 L Hct 25.5 L MCV MCH MCHC RDW 18.2 H Plt Count Seg Neuts % (Manual) Lymphocytes % (Manual) Seg Neutrophils # Man Lymphocytes # (Manual) Monocytes # (Manual) PT INR D-Dimer ABG pH ABG pO2 ABG HCO3 ABG O2 Saturation ABG Base Excess ABG Hemoglobin Oxyhemoglobin Sodium 136 L Potassium 3.5 L Chloride Carbon Dioxide BUN Creatinine 0.4 L Glucose POC Glucose 139 H Lactic Acid Calcium Phosphorus Magnesium 1.50 L AST ALT Alkaline Phosphatase Lactate Dehydrogenase Troponin T C-Reactive Protein NT-Pro-B Natriuret Pep Total Protein Albumin LDL Cholesterol Direct Vitamin B12 Fluid Glucose Fluid Total Protein Vancomycin Trough Crossmatch 12/31/21 12/31/21 12/31/21 04:00 04:52 11:23 WBC RBC Hgb Hct MCV MCH MCHC RDW Plt Count Seg Neuts % (Manual) Lymphocytes % (Manual) Seg Neutrophils # Man Lymphocytes # (Manual) Monocytes # (Manual) PT INR D-Dimer ABG pH ABG pO2 ABG HCO3 ABG O2 Saturation ABG Base Excess ABG Hemoglobin Oxyhemoglobin Sodium Potassium Chloride Carbon Dioxide BUN 19 H Creatinine 0.4 L Glucose 116 H POC Glucose 121 H 116 H Lactic Acid Calcium Phosphorus Magnesium AST ALT Alkaline Phosphatase Lactate Dehydrogenase Troponin T C-Reactive Protein NT-Pro-B Natriuret Pep Total Protein Albumin LDL Cholesterol Direct Vitamin B12 Fluid Glucose Fluid Total Protein Vancomycin Trough Crossmatch 12/31/21 01/01/22 01/01/22 17:42 04:31 04:31 WBC RBC 2.83 L Hgb 7.7 L Hct 23.2 L MCV MCH 27 L MCHC RDW 18.3 H Plt Count Seg Neuts % (Manual) Lymphocytes % (Manual) Seg Neutrophils # Man Lymphocytes # (Manual) Monocytes # (Manual) PT INR D-Dimer ABG pH ABG pO2 ABG HCO3 ABG O2 Saturation ABG Base Excess ABG Hemoglobin Oxyhemoglobin Sodium 135 L Potassium Chloride 97.7 L Carbon Dioxide BUN 21 H Creatinine 0.5 L Glucose 127 H POC Glucose 107 H Lactic Acid Calcium 8.0 L Phosphorus Magnesium AST ALT Alkaline Phosphatase Lactate Dehydrogenase Troponin T C-Reactive Protein NT-Pro-B Natriuret Pep Total Protein Albumin LDL Cholesterol Direct Vitamin B12 Fluid Glucose Fluid Total Protein Vancomycin Trough Crossmatch 01/01/22 01/01/22 01/01/22 05:24 11:25 18:11 WBC RBC Hgb Hct MCV MCH MCHC RDW Plt Count Seg Neuts % (Manual) Lymphocytes % (Manual) Seg Neutrophils # Man Lymphocytes # (Manual) Monocytes # (Manual) PT INR D-Dimer ABG pH ABG pO2 ABG HCO3 ABG O2 Saturation ABG Base Excess ABG Hemoglobin Oxyhemoglobin Sodium Potassium Chloride Carbon Dioxide BUN Creatinine Glucose POC Glucose 124 H 140 H 144 H Lactic Acid Calcium Phosphorus Magnesium AST ALT Alkaline Phosphatase Lactate Dehydrogenase Troponin T C-Reactive Protein NT-Pro-B Natriuret Pep Total Protein Albumin LDL Cholesterol Direct Vitamin B12 Fluid Glucose Fluid Total Protein Vancomycin Trough Crossmatch 01/01/22 01/02/22 01/02/22 23:26 04:01 04:01 WBC RBC 2.57 L Hgb 7.1 L Hct 21.5 L MCV MCH MCHC RDW 18.1 H Plt Count Seg Neuts % (Manual) Lymphocytes % (Manual) Seg Neutrophils # Man Lymphocytes # (Manual) Monocytes # (Manual) PT INR D-Dimer ABG pH ABG pO2 ABG HCO3 ABG O2 Saturation ABG Base Excess ABG Hemoglobin Oxyhemoglobin Sodium 131 L Potassium 3.5 L Chloride 94.8 L Carbon Dioxide BUN 27 H Creatinine Glucose 121 H POC Glucose 121 H Lactic Acid Calcium Phosphorus Magnesium AST ALT Alkaline Phosphatase Lactate Dehydrogenase Troponin T C-Reactive Protein NT-Pro-B Natriuret Pep Total Protein Albumin LDL Cholesterol Direct Vitamin B12 Fluid Glucose Fluid Total Protein Vancomycin Trough Crossmatch 01/02/22 01/02/22 01/02/22 05:30 11:10 16:08 WBC RBC Hgb Hct MCV MCH MCHC RDW Plt Count Seg Neuts % (Manual) Lymphocytes % (Manual) Seg Neutrophils # Man Lymphocytes # (Manual) Monocytes # (Manual) PT INR D-Dimer ABG pH ABG pO2 ABG HCO3 ABG O2 Saturation ABG Base Excess ABG Hemoglobin Oxyhemoglobin Sodium Potassium Chloride Carbon Dioxide BUN Creatinine Glucose POC Glucose 124 H 117 H 130 H Lactic Acid Calcium Phosphorus Magnesium AST ALT Alkaline Phosphatase Lactate Dehydrogenase Troponin T C-Reactive Protein NT-Pro-B Natriuret Pep Total Protein Albumin LDL Cholesterol Direct Vitamin B12 Fluid Glucose Fluid Total Protein Vancomycin Trough Crossmatch 01/02/22 01/02/22 01/03/22 17:30 23:26 04:53 WBC RBC 2.82 L Hgb 7.7 L Hct 23.4 L MCV MCH 27 L MCHC RDW 18.0 H Plt Count Seg Neuts % (Manual) Lymphocytes % (Manual) Seg Neutrophils # Man Lymphocytes # (Manual) Monocytes # (Manual) PT INR D-Dimer ABG pH ABG pO2 ABG HCO3 ABG O2 Saturation ABG Base Excess ABG Hemoglobin Oxyhemoglobin Sodium Potassium Chloride Carbon Dioxide BUN Creatinine Glucose POC Glucose 114 H Lactic Acid Calcium Phosphorus Magnesium AST ALT Alkaline Phosphatase Lactate Dehydrogenase Troponin T C-Reactive Protein NT-Pro-B Natriuret Pep Total Protein Albumin LDL Cholesterol Direct Vitamin B12 Fluid Glucose Fluid Total Protein Vancomycin Trough 22.8 H Crossmatch 01/03/22 01/03/22 01/03/22 04:53 06:23 17:35 WBC RBC Hgb Hct MCV MCH MCHC RDW Plt Count Seg Neuts % (Manual) Lymphocytes % (Manual) Seg Neutrophils # Man Lymphocytes # (Manual) Monocytes # (Manual) PT INR D-Dimer ABG pH ABG pO2 ABG HCO3 ABG O2 Saturation ABG Base Excess ABG Hemoglobin Oxyhemoglobin Sodium 133 L Potassium Chloride 96.2 L Carbon Dioxide BUN 30 H Creatinine Glucose 107 H POC Glucose 122 H 107 H Lactic Acid Calcium Phosphorus Magnesium AST ALT Alkaline Phosphatase Lactate Dehydrogenase Troponin T C-Reactive Protein NT-Pro-B Natriuret Pep Total Protein Albumin LDL Cholesterol Direct Vitamin B12 Fluid Glucose Fluid Total Protein Vancomycin Trough Crossmatch 01/04/22 01/04/22 01/04/22 04:00 12:32 16:45 WBC RBC Hgb Hct MCV MCH MCHC RDW Plt Count Seg Neuts % (Manual) Lymphocytes % (Manual) Seg Neutrophils # Man Lymphocytes # (Manual) Monocytes # (Manual) PT INR D-Dimer ABG pH ABG pO2 ABG HCO3 ABG O2 Saturation ABG Base Excess ABG Hemoglobin Oxyhemoglobin Sodium 132 L Potassium Chloride 92.8 L Carbon Dioxide BUN 30 H Creatinine Glucose 115 H POC Glucose 111 H 111 H Lactic Acid Calcium Phosphorus Magnesium 1.60 L AST ALT Alkaline Phosphatase Lactate Dehydrogenase Troponin T C-Reactive Protein NT-Pro-B Natriuret Pep Total Protein Albumin LDL Cholesterol Direct Vitamin B12 Fluid Glucose Fluid Total Protein Vancomycin Trough Crossmatch 01/05/22 01/05/22 01/05/22 04:30 04:30 17:04 WBC RBC 3.11 L Hgb 8.4 L Hct 25.5 L MCV MCH 27 L MCHC RDW 17.6 H Plt Count Seg Neuts % (Manual) Lymphocytes % (Manual) Seg Neutrophils # Man Lymphocytes # (Manual) Monocytes # (Manual) PT INR D-Dimer ABG pH ABG pO2 ABG HCO3 ABG O2 Saturation ABG Base Excess ABG Hemoglobin Oxyhemoglobin Sodium 135 L Potassium Chloride 93.6 L Carbon Dioxide BUN 29 H Creatinine Glucose POC Glucose 67 L Lactic Acid Calcium Phosphorus Magnesium AST ALT Alkaline Phosphatase Lactate Dehydrogenase Troponin T C-Reactive Protein NT-Pro-B Natriuret Pep Total Protein Albumin LDL Cholesterol Direct Vitamin B12 Fluid Glucose Fluid Total Protein Vancomycin Trough Crossmatch 01/05/22 01/06/22 01/06/22 23:27 04:06 04:06 WBC RBC 2.89 L Hgb 7.7 L Hct 23.8 L MCV MCH 27 L MCHC RDW 18.0 H Plt Count Seg Neuts % (Manual) Lymphocytes % (Manual) Seg Neutrophils # Man Lymphocytes # (Manual) Monocytes # (Manual) PT 16.9 H INR 1.23 H D-Dimer ABG pH ABG pO2 ABG HCO3 ABG O2 Saturation ABG Base Excess ABG Hemoglobin Oxyhemoglobin Sodium Potassium Chloride Carbon Dioxide BUN Creatinine Glucose POC Glucose 110 H Lactic Acid Calcium Phosphorus Magnesium AST ALT Alkaline Phosphatase Lactate Dehydrogenase Troponin T C-Reactive Protein NT-Pro-B Natriuret Pep Total Protein Albumin LDL Cholesterol Direct Vitamin B12 Fluid Glucose Fluid Total Protein Vancomycin Trough Crossmatch 01/06/22 01/06/22 01/06/22 04:06 13:40 23:41 WBC RBC Hgb Hct MCV MCH MCHC RDW Plt Count Seg Neuts % (Manual) Lymphocytes % (Manual) Seg Neutrophils # Man Lymphocytes # (Manual) Monocytes # (Manual) PT INR D-Dimer ABG pH ABG pO2 ABG HCO3 ABG O2 Saturation ABG Base Excess ABG Hemoglobin Oxyhemoglobin Sodium 132 L Potassium Chloride 92.3 L Carbon Dioxide BUN 26 H Creatinine Glucose 111 H POC Glucose 120 H Lactic Acid Calcium Phosphorus Magnesium AST ALT Alkaline Phosphatase Lactate Dehydrogenase Troponin T C-Reactive Protein NT-Pro-B Natriuret Pep Total Protein Albumin LDL Cholesterol Direct Vitamin B12 Fluid Glucose 96 H Fluid Total Protein < 3.0 L Vancomycin Trough Crossmatch 01/07/22 01/07/22 01/07/22 05:20 11:30 17:00 WBC RBC Hgb Hct MCV MCH MCHC RDW Plt Count Seg Neuts % (Manual) Lymphocytes % (Manual) Seg Neutrophils # Man Lymphocytes # (Manual) Monocytes # (Manual) PT INR D-Dimer ABG pH ABG pO2 ABG HCO3 ABG O2 Saturation ABG Base Excess ABG Hemoglobin Oxyhemoglobin Sodium Potassium Chloride Carbon Dioxide BUN Creatinine Glucose POC Glucose 111 H 113 H 121 H Lactic Acid Calcium Phosphorus Magnesium AST ALT Alkaline Phosphatase Lactate Dehydrogenase Troponin T C-Reactive Protein NT-Pro-B Natriuret Pep Total Protein Albumin LDL Cholesterol Direct Vitamin B12 Fluid Glucose Fluid Total Protein Vancomycin Trough Crossmatch 01/07/22 01/08/22 01/08/22 23:41 11:26 16:23 WBC RBC Hgb Hct MCV MCH MCHC RDW Plt Count Seg Neuts % (Manual) Lymphocytes % (Manual) Seg Neutrophils # Man Lymphocytes # (Manual) Monocytes # (Manual) PT INR D-Dimer ABG pH ABG pO2 ABG HCO3 ABG O2 Saturation ABG Base Excess ABG Hemoglobin Oxyhemoglobin Sodium Potassium Chloride Carbon Dioxide BUN Creatinine Glucose POC Glucose 110 H 129 H 118 H Lactic Acid Calcium Phosphorus Magnesium AST ALT Alkaline Phosphatase Lactate Dehydrogenase Troponin T C-Reactive Protein NT-Pro-B Natriuret Pep Total Protein Albumin LDL Cholesterol Direct Vitamin B12 Fluid Glucose Fluid Total Protein Vancomycin Trough Crossmatch 01/09/22 01/10/22 01/10/22 18:13 00:27 04:00 WBC RBC Hgb Hct MCV MCH MCHC RDW Plt Count Seg Neuts % (Manual) Lymphocytes % (Manual) Seg Neutrophils # Man Lymphocytes # (Manual) Monocytes # (Manual) PT INR D-Dimer ABG pH ABG pO2 ABG HCO3 ABG O2 Saturation ABG Base Excess ABG Hemoglobin Oxyhemoglobin Sodium 133 L Potassium Chloride 92.6 L Carbon Dioxide 31 H BUN 29 H Creatinine 0.5 L Glucose 115 H POC Glucose 118 H 111 H Lactic Acid Calcium Phosphorus Magnesium AST ALT Alkaline Phosphatase Lactate Dehydrogenase Troponin T C-Reactive Protein NT-Pro-B Natriuret Pep Total Protein Albumin LDL Cholesterol Direct Vitamin B12 Fluid Glucose Fluid Total Protein Vancomycin Trough Crossmatch 01/10/22 01/11/22 01/11/22 05:47 05:10 11:14 WBC RBC Hgb Hct MCV MCH MCHC RDW Plt Count Seg Neuts % (Manual) Lymphocytes % (Manual) Seg Neutrophils # Man Lymphocytes # (Manual) Monocytes # (Manual) PT INR D-Dimer ABG pH ABG pO2 ABG HCO3 ABG O2 Saturation ABG Base Excess ABG Hemoglobin Oxyhemoglobin Sodium Potassium Chloride Carbon Dioxide BUN Creatinine Glucose POC Glucose 106 H 118 H 136 H Lactic Acid Calcium Phosphorus Magnesium AST ALT Alkaline Phosphatase Lactate Dehydrogenase Troponin T C-Reactive Protein NT-Pro-B Natriuret Pep Total Protein Albumin LDL Cholesterol Direct Vitamin B12 Fluid Glucose Fluid Total Protein Vancomycin Trough Crossmatch 01/11/22 01/11/22 01/12/22 17:14 23:52 05:39 WBC RBC Hgb Hct MCV MCH MCHC RDW Plt Count Seg Neuts % (Manual) Lymphocytes % (Manual) Seg Neutrophils # Man Lymphocytes # (Manual) Monocytes # (Manual) PT INR D-Dimer ABG pH ABG pO2 ABG HCO3 ABG O2 Saturation ABG Base Excess ABG Hemoglobin Oxyhemoglobin Sodium Potassium Chloride Carbon Dioxide BUN Creatinine Glucose POC Glucose 117 H 110 H 110 H Lactic Acid Calcium Phosphorus Magnesium AST ALT Alkaline Phosphatase Lactate Dehydrogenase Troponin T C-Reactive Protein NT-Pro-B Natriuret Pep Total Protein Albumin LDL Cholesterol Direct Vitamin B12 Fluid Glucose Fluid Total Protein Vancomycin Trough Crossmatch 01/13/22 01/13/22 01/14/22 11:15 17:21 05:33 WBC RBC Hgb Hct MCV MCH MCHC RDW Plt Count Seg Neuts % (Manual) Lymphocytes % (Manual) Seg Neutrophils # Man Lymphocytes # (Manual) Monocytes # (Manual) PT INR D-Dimer ABG pH ABG pO2 ABG HCO3 ABG O2 Saturation ABG Base Excess ABG Hemoglobin Oxyhemoglobin Sodium Potassium Chloride Carbon Dioxide BUN Creatinine Glucose POC Glucose 113 H 121 H 136 H Lactic Acid Calcium Phosphorus Magnesium AST ALT Alkaline Phosphatase Lactate Dehydrogenase Troponin T C-Reactive Protein NT-Pro-B Natriuret Pep Total Protein Albumin LDL Cholesterol Direct Vitamin B12 Fluid Glucose Fluid Total Protein Vancomycin Trough Crossmatch 01/14/22 01/15/22 01/15/22 11:28 00:13 05:24 WBC RBC Hgb Hct MCV MCH MCHC RDW Plt Count Seg Neuts % (Manual) Lymphocytes % (Manual) Seg Neutrophils # Man Lymphocytes # (Manual) Monocytes # (Manual) PT INR D-Dimer ABG pH ABG pO2 ABG HCO3 ABG O2 Saturation ABG Base Excess ABG Hemoglobin Oxyhemoglobin Sodium Potassium Chloride Carbon Dioxide BUN Creatinine Glucose POC Glucose 117 H 109 H 117 H Lactic Acid Calcium Phosphorus Magnesium AST ALT Alkaline Phosphatase Lactate Dehydrogenase Troponin T C-Reactive Protein NT-Pro-B Natriuret Pep Total Protein Albumin LDL Cholesterol Direct Vitamin B12 Fluid Glucose Fluid Total Protein Vancomycin Trough Crossmatch 01/15/22 01/15/22 01/15/22 11:38 14:36 17:05 WBC RBC 3.11 L Hgb 8.4 L Hct 25.7 L MCV MCH 27 L MCHC RDW 17.2 H Plt Count Seg Neuts % (Manual) 82.0 H Lymphocytes % (Manual) 11.0 L Seg Neutrophils # Man 8.8 H Lymphocytes # (Manual) Monocytes # (Manual) PT INR D-Dimer ABG pH ABG pO2 ABG HCO3 ABG O2 Saturation ABG Base Excess ABG Hemoglobin Oxyhemoglobin Sodium Potassium Chloride Carbon Dioxide BUN Creatinine Glucose POC Glucose 107 H 108 H Lactic Acid Calcium Phosphorus Magnesium AST ALT Alkaline Phosphatase Lactate Dehydrogenase Troponin T C-Reactive Protein NT-Pro-B Natriuret Pep Total Protein Albumin LDL Cholesterol Direct Vitamin B12 Fluid Glucose Fluid Total Protein Vancomycin Trough Crossmatch 01/15/22 01/15/22 01/15/22 21:07 Unknown Unknown WBC RBC 2.97 L Hgb 8.0 L Hct 24.3 L MCV MCH 27 L MCHC RDW 17.2 H Plt Count Seg Neuts % (Manual) Lymphocytes % (Manual) Seg Neutrophils # Man Lymphocytes # (Manual) Monocytes # (Manual) PT INR D-Dimer ABG pH ABG pO2 ABG HCO3 ABG O2 Saturation ABG Base Excess ABG Hemoglobin Oxyhemoglobin Sodium 131 L Potassium Chloride 93.1 L Carbon Dioxide BUN 27 H Creatinine Glucose 110 H POC Glucose Lactic Acid Calcium 8.3 L Phosphorus Magnesium AST ALT Alkaline Phosphatase Lactate Dehydrogenase Troponin T 0.088 H C-Reactive Protein NT-Pro-B Natriuret Pep Total Protein Albumin LDL Cholesterol Direct 44 L Vitamin B12 Fluid Glucose Fluid Total Protein Vancomycin Trough Crossmatch 01/15/22 01/16/22 01/16/22 Unknown 05:21 12:59 WBC RBC Hgb Hct MCV MCH MCHC RDW Plt Count Seg Neuts % (Manual) Lymphocytes % (Manual) Seg Neutrophils # Man Lymphocytes # (Manual) Monocytes # (Manual) PT INR D-Dimer ABG pH ABG pO2 ABG HCO3 ABG O2 Saturation ABG Base Excess ABG Hemoglobin Oxyhemoglobin Sodium 134 L 134 L Potassium 3.4 L Chloride 93.9 L 95.4 L Carbon Dioxide BUN 26 H 24 H Creatinine Glucose 168 H POC Glucose 159 H Lactic Acid Calcium 8.1 L Phosphorus Magnesium AST ALT Alkaline Phosphatase Lactate Dehydrogenase Troponin T 0.078 H C-Reactive Protein NT-Pro-B Natriuret Pep Total Protein Albumin LDL Cholesterol Direct Vitamin B12 Fluid Glucose Fluid Total Protein Vancomycin Trough Crossmatch 01/16/22 01/17/22 01/17/22 23:22 05:20 14:24 WBC RBC Hgb Hct MCV MCH MCHC RDW Plt Count Seg Neuts % (Manual) Lymphocytes % (Manual) Seg Neutrophils # Man Lymphocytes # (Manual) Monocytes # (Manual) PT INR D-Dimer ABG pH ABG pO2 55.0 L ABG HCO3 29.5 H ABG O2 Saturation 87.8 L ABG Base Excess 4.5 H ABG Hemoglobin 9.3 L Oxyhemoglobin 86.1 L Sodium Potassium Chloride Carbon Dioxide BUN Creatinine Glucose POC Glucose 113 H 111 H Lactic Acid Calcium Phosphorus Magnesium AST ALT Alkaline Phosphatase Lactate Dehydrogenase Troponin T C-Reactive Protein NT-Pro-B Natriuret Pep Total Protein Albumin LDL Cholesterol Direct Vitamin B12 Fluid Glucose Fluid Total Protein Vancomycin Trough Crossmatch 01/17/22 01/18/22 01/18/22 17:14 05:39 11:53 WBC RBC Hgb Hct MCV MCH MCHC RDW Plt Count Seg Neuts % (Manual) Lymphocytes % (Manual) Seg Neutrophils # Man Lymphocytes # (Manual) Monocytes # (Manual) PT INR D-Dimer ABG pH ABG pO2 ABG HCO3 ABG O2 Saturation ABG Base Excess ABG Hemoglobin Oxyhemoglobin Sodium Potassium Chloride Carbon Dioxide BUN Creatinine Glucose POC Glucose 126 H 108 H 113 H Lactic Acid Calcium Phosphorus Magnesium AST ALT Alkaline Phosphatase Lactate Dehydrogenase Troponin T C-Reactive Protein NT-Pro-B Natriuret Pep Total Protein Albumin LDL Cholesterol Direct Vitamin B12 Fluid Glucose Fluid Total Protein Vancomycin Trough Crossmatch 01/18/22 01/19/22 01/19/22 12:50 00:04 04:50 WBC RBC 3.14 L Hgb 8.4 L Hct 26.0 L MCV MCH 27 L MCHC RDW 18.2 H Plt Count Seg Neuts % (Manual) Lymphocytes % (Manual) Seg Neutrophils # Man Lymphocytes # (Manual) Monocytes # (Manual) PT INR D-Dimer ABG pH ABG pO2 112.3 H ABG HCO3 30.9 H ABG O2 Saturation ABG Base Excess 5.8 H ABG Hemoglobin 8.8 L Oxyhemoglobin Sodium Potassium Chloride Carbon Dioxide BUN Creatinine Glucose POC Glucose 115 H Lactic Acid Calcium Phosphorus Magnesium AST ALT Alkaline Phosphatase Lactate Dehydrogenase Troponin T C-Reactive Protein NT-Pro-B Natriuret Pep Total Protein Albumin LDL Cholesterol Direct Vitamin B12 Fluid Glucose Fluid Total Protein Vancomycin Trough Crossmatch 01/19/22 04:50 WBC RBC Hgb Hct MCV MCH MCHC RDW Plt Count Seg Neuts % (Manual) Lymphocytes % (Manual) Seg Neutrophils # Man Lymphocytes # (Manual) Monocytes # (Manual) PT INR D-Dimer ABG pH ABG pO2 ABG HCO3 ABG O2 Saturation ABG Base Excess ABG Hemoglobin Oxyhemoglobin Sodium 134 L Potassium Chloride 95.4 L Carbon Dioxide BUN 28 H Creatinine Glucose POC Glucose Lactic Acid Calcium Phosphorus Magnesium AST ALT Alkaline Phosphatase Lactate Dehydrogenase Troponin T C-Reactive Protein NT-Pro-B Natriuret Pep Total Protein Albumin LDL Cholesterol Direct Vitamin B12 Fluid Glucose Fluid Total Protein Vancomycin Trough Crossmatch Chest x-ray: report reviewed, image reviewed Additional Studies: CHEST 1 VIEW 01/19/2022 3:57 AM INDICATION / CLINICAL INFORMATION: pleural effusion. COMPARISON: 01/16/2022 FINDINGS: SUPPORT DEVICES: Stable, satisfactory device positioning. HEART / MEDIASTINUM: Stable cardiomegaly. LUNGS / PLEURA: Stable diffuse bilateral interstitial opacities and small pleural effusions. No pneumothorax. ADDITIONAL FINDINGS: No significant additional findings. IMPRESSION: 1. No adverse change from the prior exam. Allied health notes reviewed: nursing
--- NOTE | 2022-01-19 15:46 | Cat Scan Report ---
PLEASE SEE OPERATIVE REPORT ON 01/16/22 AT 12:31 MTDD
[2022-01-19 20:56] LABS: ABG Base Excess 4.3 mmol/L (-2.0-3.0); ABG HCO3 29.8 mmol/L (20.0-26.0); ABG Methemoglobin 0.4 % (0.0-1.5); ABG Oxygen Saturation 97.3 % (95.0-99.0); ABG PCO2 50.4 mm Hg; ABG PH 7.39 pH Units (7.350-7.450); ABG PO2 95.2 mm Hg (80.0-90.0)
[2022-01-19] MEDS: traZODone 50 MG TAB PO SCH (22:34)
[2022-01-19] MEDS: MELATONIN 5 MG TAB PO SCH (22:34)
[2022-01-19] MEDS: PRAVASTATIN 20 MG TAB FEEDTUBE SCH (22:34)
[2022-01-19] MEDS: ONDANSETRON 4 MG/2 ML INJ IV PRN (22:36)
[2022-01-20] MEDS: ALPRAZolam 0.25 MG TAB FEEDTUBE PRN ×2 (06:15→21:02)
[2022-01-20] MEDS: SUCRALFATE 1 GM/10 ML ORAL LIQD FEEDTUBE SCH ×3 (06:16→18:35)
[2022-01-20] MEDS: LEVOTHYROXINE 125 MCG TAB FEEDTUBE SCH (06:16)
[2022-01-20] MEDS: HYDROcodone/ACETAMINOPHEN 10-325MG TAB FEEDTUBE SCH ×3 (08:41→20:59)
[2022-01-20] MEDS: MIDODRINE 5 MG TAB FEEDTUBE SCH ×3 (08:41→15:12)
[2022-01-20] MEDS: SPIRONOLACTONE 25 MG TAB FEEDTUBE SCH (10:48)
[2022-01-20] MEDS: GABAPENTIN 100 MG CAP FEEDTUBE SCH (10:49)
[2022-01-20] MEDS: DOCUSATE SODIUM 100 MG/10 ML ORAL LIQD FEEDTUBE SCH ×2 (10:49→22:41)
[2022-01-20] MEDS: busPIRone 5 MG TAB FEEDTUBE SCH ×2 (10:49→21:01)
[2022-01-20] MEDS: METOPROLOL TARTRATE 25 MG TAB FEEDTUBE SCH ×2 (10:50→21:00)
[2022-01-20] MEDS: FUROSEMIDE 20 MG TAB PO SCH (10:50)
[2022-01-20] MEDS: LANSOPRAZOLE 30 MG SOLUTAB FEEDTUBE SCH (10:51)
[2022-01-20] MEDS: POLYETHYLENE GLYCOL 3350 17 GM POWDER FEEDTUBE SCH (10:51)
[2022-01-20] MEDS: SENNOSIDES ORAL LIQD 8.8 MG/5 ML ORAL LIQD FEEDTUBE SCH ×2 (10:52→22:00)
[2022-01-20] MEDS: VANCOMYCIN/NS 1 GM/250 ML 1 GM/250 ML BAG IV SCH (10:52)
[2022-01-20] MEDS: QUEtiapine 25 MG TAB FEEDTUBE SCH ×2 (10:52→21:01)
--- NOTE | 2022-01-20 12:09 | Progress Note ---
Assessment and Plan Assessment and plan: This is an 82-year-old female with DM, HTN , CHB s/p PPM, CAD s/p PCI and arthritis who presented to the emergency department on 11/04 for shortness of breath ongoing for the past 3 days, cough and according to family a fever of 102.2. Upon arrival of EMS patient was found to be tachypneic and hypoxic with SPO2 of 76% on room air which later improved to 88% on nonrebreather. Work-up in the emergency department included a CXR which showed bilateral interstitial pulmonary edema with bilateral pleural effusions and bibasilar opacities, leukocytosis and anemia with a hemoglobin of 6.1. Patient was admitted to the hospitalist service with acute anemia, acute hypoxic respiratory failure, bilateral pneumonia and COVID-19 PUI with consults to pulmonology, infectious disease and later cardiology. Patient was eventually intubated in the emergency department on 11/06. Hospital Course to date: 11/04/2021: Empiric therapy with iv levaquin/vancomycin. COVID PCR pending. Will consult ID. PCCM consulted, will follow recs. Hypotensive this AM, ordered bolus and fluids at 150 cc/hr. May require pressor support if bp does not improve. 11/05/2021: GBS on bcx +, currently on rocephin IV. Currently on bipap due to respiratory distress overnight. Worsening BL opacities on CXR. May be volume overload vs pneumonia. Unfortunately bp too low for lasix at this point. WIll continue levophed and bipap. Once able to tolerate, may do trial of albumin/lasix. Call attempt made to Niraj, no response. Will try again tomorrow to update. 11/06/2021: Decompensated overnight requiring intubation. CXR shows worsening interstitial infiltrates. Currenlty on dopamine, levophed, vasopressin. PICC line ordered. Advised RN to place gamble for I/O monitoring. Would benefit from diuresis but very volume overloaded. Prognosis guarded 11/08: Off sedation this am, remains unresponsive only grimace to pain. Hold all sedatives agents for now, patient is off pressors this am. Hypernatremia from today's lab- D5W X1bag, and low K repleted, repeat lab in the am. Severe constipation also noted from KUB, BR added. 11/09: Sudden SPO2 drop in the 60s this am. Patient was manually bagged and deep suctioned. Patient is currently stable on the vent, repeat CXR with no significant change. D/w CCM Mucomyst and brochodilator added. Patient mentation is unchanged, continue to hold off on sedative agents. Neurology consulted. 11/10: Acute DVT noted on bilateral lower extremity Doppler ultrasound therefore she was started on Lovenox treatment dose. Failed SBT. Hypernatremia and hyperchloremia noted, free water flush adjusted. 11/11: Patient noted to be febrile with increasing of the cytosis, UA/BC sent and CXR ordered. ID escalated antibiotics to cefepime. CXR demonstrated mucous plug, bedside bronchoscopy was performed and O ETT was changed over bougie from 6 cm to 7.5. Patient was noted to have a pneumothorax postprocedure and chest tube was placed. Family updated by [facility]. Free water flush increased and will add Jaswant supplementation. 11/12: Patient not noted to follow commands, hypernatremia worsen/persist, increasing free water flush, potassium and magnesium and phosphorus repleted. Hemoglobin noted to be 7./24.5 from 7.03/12 yesterday. We will continue to trend and monitor. Vent changes per [facility]. Repeat CXR showed no residual pneumothorax. Consider waterseal tomorrow. Given persistent leukocytosis antibiotics escalated to cefepime per ID. 11/13: Remains on cefepime and vancomycin, vent changes per [facility]. Anemia noted and given 1 unit PRBC. And beta-charleen held in setting of Levophed drip infusing. Remains on fentanyl drip. 11/14: Patient put on CPAP trial by [facility], will continue chest tube until after extubation. Will rest on assist control. CT brain was cancelled by editor trade journal and reordered. 11/15: Patient removed chest tube overnight. Will obtain cxr. remains on low dose levo. CTH completed with no acute findings. RT to place on CPAP. 11/16: Hypernatremia/hyperchloremia noted on the increase of day water flushes. Anemia noted and ordered PRBC. asked RT to place on cpap but not done yet 11/17: Patient remains on the vent, awake and following commands. H&H stable s/p 2units PRBCs. GI on consult, no intervention at this time. Will continue protonix gtt and serial H&H Q6hrs. Keep patient NPO for now, D5w added for hypernatremia and NPO status. Plan for IVC filter placement today by Vascular. 11/18: Patient is s/p IVC filter. H&H continue to trend down, hbg 6.1 this am, 1 unit of PRBCs ordered. Plan for possible EGD today by GI. Keep patient NPO, continue PPI drip and serial H&H Q6hrs. Electrolytes repleted, repeat lab in the am 11/19: S/p EGD- larger duodenal ulcer noted, see operative note. GI recommendations noted also noted. H&H stable this am. Keep patient on protonix gtt for now. Will keep patient NPO, continue IVF and serial H&H for now. Electrolytes repleted, repeat labs in the am 11/20: Very agitated and restless this am, fentanyl gtt resumed. Patient remains on protonix gtt, H&H remains stable. Will switch protonix gtt to IV BID, continue carafate and okay to resume meds at this time. Will F/u with GI to see if TF can be resumed. Gamble was reinserted overnight for retention. Electrolytes repleted, repeat in the am. Plan for possible PST today for possible extubation per CCM. 11/21: Patient is now on seroquel and patient's home buspar resumed. Patient more calm this morning, fentanyl gtt is off. H&H remains stable and patient is tolerating TF. Patient had a runs of Vtach/PVCs this am, BB added per Cardio. Continue daily PS and wean trial for possible extubation. 11/22: Back on fentanyl gtt overnight , RASS o to -1, following commands. Patient failed PST this am due to increased work of breathing and low SPO2, ABG pending. Patient is also with worsen pitting edema, lasix is still on hold. Will discuss with cardio and CCM to possibly resume lasix. 11/23: MARIA DEL CARMEN overnight. Patient failed PST again this am. Per CCM plan for possible trach and PEG, hold off on IV lasix for now. General surgery consulted and family is aware of possible Trach and PEG. 11/24: Trach/PEG pending this week, continue SBT/SAT as tolerated. No acute events reported overnight. 11/25: Patient was n.p.o. overnight and will remain n.p.o. tonight for trach/PEG tomorrow morning. She failed to support trial again. KUB obtained due to distended belly. 11/26: Patient scheduled for tracheostomy and PEG tube placement today, has been n.p.o. since midnight. No acute events reported overnight. [facility] ordered simethicone scheduled. 11/27: No acute events reported overnight, patient received trach/PEG yesterday. Has been on feedings since last night. Still awaiting LTAC placement. 11/28: Patient magnesium repleted, repeat a.m. labs, SBT 11/29: Patient complains of chest pain but ECG obtained which showed no acute findings, ordered troponin. Patient failed CPAP yesterday and was trialed again today. levophed was restarted but will aggressively wean 11/30: Patient failed SBT. Continue supportive care. Started gabapentin today 12/01: MARIA DEL CARMEN overnight. Continue daily PST. Case management to arrange possible placement 12/02: Report of dark stools overnight, patient is hemodynamically stable. H&H stable, patient is on PPI. Will continue to trend H&H. Continue daily PST as tolerated. Awaiting LTAC vs SNF placement. 12/03: Hypotensive overnight, requiring low dose pressors. S/p X3 days of gentle diurese. Will continue to monitor, wean off pressors as tolerated for MAP of 65. Patient Failed PST yesterday, case management to follow up with insurance for po ssible LTAC placement. Continue daily PST as tolerated. PT eval and treat ordered. 12/04: Increased agitation and anxiety overnight, remains on buspar and seroquel, trazadone added to promote rest. Patient is now working with PT, keep patient engage and awake during the day so she can rest at night. No BM for over 5 days, BR was adjusted. Patient did not tolerate PST again yesterday, continue daily PST as tolerated. Continue to titrate pressor for MAP above 65. Pending possible LTAC placement, case management to arrange. 12/05: Still not getting much rest overnight, will add melatonin for sleep. Continue to engage patient during the day and promote rest at night. TF was held due to concern for possible bleeding, H&H remains stable and stools normal this am. Resume TF and continue PPI and carafate. Remains on low dose levophed, titrate as tolerated. Continue daily PST. Possible LTAC placement, awaiting approval. 12/06: MARIA DEL CARMEN overnight. Patient rested overnight. Continue supportive measures. Daily PST as tolerated. Awaiting possible LTAC placement 12/07: MARIA DEL CARMEN overnight. Plan for Tpiece trial today. Continue current supportive measures. Possible LTAC placement 12/08: Patient placed on pressure support trial again today, started on Xanax, no acute events reported overnight. Awaiting insurance approval for LTAC. 12/09: Levophed discontinued, LTAC transfer denied, started on midodrine and Lasix, ultrasound chest pending, started on Xanax 0.[address] De León updated family at bedside today. Started on Dilaudid every 3 hours as needed. 12/10: Patient placed on CPAP trial this morning, no acute events reported overnight. Will order ultrasound-guided thoracentesis. 12/11: Patient had a thoracentesis today, will decrease Xanax dosage and continue midodrine and diuresing. Patient failed CPAP today. 12/12: Patient not tolerate CPAP trials today, no acute events reported overnight 12/13: No acute events overnight. continue PSV trials as tolerated. Daughter up dated at bedside 12/14: Patient noted to be anemic today, ordered gastric occult. Patient seems to be oversedated therefore Xanax changed to as needed and fentanyl patch discontinued. We will continue to monitor hyponatremia. 12/15: MARIA DEL CARMEN overnight. s/p 1unit of PRBCs, H&H stable this am, no signs of any active bleeding. Continue daily PST as tolerated. Awaiting placement. 12/16: Hypertensive this am, Midodrine decreased. Continue daily PST. MARIA DEL CARMEN overnight 12/17: Patient Hgb dropped to 6 this am, no s/s of any active bleeding, VSS. Patient received 1unit of PRBC, will continue to trend H&H. Patient was pancultured and back on IV Abx due to persistent fevers yesterday. ID is also back on the case. Continue IV Abx per ID and f/u on cultures data for sensitivity. Patient also failed PST yesterday, continue daily PST as tolerated. Electrolytes repleted, repeat labs in the am. 12/18: Patient blood cultures is growing GPC 4 out 4 bottles. PICC line D/Rivas, patient is already on IV Abx-cefepine and Vanc and ID is following. Patient remains hemodynamically stable. Daily PST as tolerated adn PRN Benzo for anxiety. 12/19: MARIA DEL CARMEN overnight. Culture data noted, continue IV Abx per ID. Orders placed for repeat Bculture. Gamble D/C overnight, patient is voiding. Check bladder scan as needed for retention. Patient failed PST again today. Continue daily PST as tolerated. 12/20: Fevers improved, Cultures +MRSA, on Vanco per ID. Repeat 2D Echo to r/o endocarditis. Patient continue to fail PST, PEEP increased to 8 today. Continue pulmonary hygiene and vent wean per CCM. Sodium tab added for hyponatremia. 12/22: Patient on pressure support trial for approximately 4 hours today, midodrine dosage increased due to hypotension. Lasix discontinued. 12/23: Started on a.m. Seroquel dose, midodrine increased to 10 mg 3 times daily, 500 mL normal saline bolus. 12/24: Seroquel dose changed (25 every morning, 75 nightly). updated at bedside by Dr. De León. CPAP trials as tolerated. Continue vancomycin. Awaiting placement. 12/25: Continue CPAP as tolerated, added gasx for distention. Continue supportive care 12/26: Patient failed PSV this AM. no acute events overnight. 12/27: GI re-consulted due to abdominal distention. No acute events reported overnight. CPAP trials as tolerated. Dr. Mckenna will get a KUB to rule out possible obstruction. 12/28: KUB shows no acute process, CXR shows improvement. CPAP trials as tolerated. 12/29: CT Abd/pelvis noted with moderated bilateral pleural effusion, anasarca, and ascites. X1dose of IV lasix administered. D/w CCM and GI orders plan for thora and paracentesis by IR. Will also start patient on aldactone Qday. Patient is tolerating trickle feeds this am, continue TF and BR adjusted for constipation. Plan of care was discussed with patient and her at the bedside. Thorough discussion on patient's overall poor prognosis and that pat ient will most likely be vent dependent. Patient's voiced understanding of the info given. All questions and concerns were voiced at this time. 12/30: Patient did not tolerate thoracentesis in IR yesterday due to change in LOC and hypoxia. Plan for possible bedside thoracentesis and paracentesis today. Patient remains afebrile. Patient required camp dining room attendant IV abx therapy [id number] left, orders placed for a PICC. Patient remains with sign. Piting edema and anasarca, X1 does of PO Zaroxolyn and 2m of IV lasix given. Electrolytes repleted, repeat lab in the am. 12/31: Tolerated Rt. thoracentesis at the bedside yesterday, 1.4L removed. Patient remains stable on the vent this am, tolerating CPAP today PS dropped to 14. Recent CXR noted, left pleural effusion improved. Patient tolerated gentle diurese yesterday, good urine output reported. D/w CCM hold off on Left thoracentesis today, continue PO Aldactone and additonal zaroxolyn and IV lasix again today. F/u CXR in the am. 01/01: This am CXR noted with worsening bilateral pleural effusion. Patient is stable and tolerating PST this am, however PS is back up to 20 this am. BP is soft this am will hold off on IV diuretic for today, continue PO Aldactone. D/w CCM continue gentle diurese as tolerated. Will reassess in the am. Continue support care. 01/02: MARIA DEL CARMEN overnight. VSS this am, tolerating PST. X1dose of 25% IV Albumin following with 20mg IV Lasix today. Continue daily gentle diurese if hemodynamics tolerate it. Continue to monitor and replace electrolytes as needed 01/03: Abdominal distention and vomiting overnight, 600cc of gastric residual removed, TF held. KUB with no acute abnormality. Reglan added X2days, resume TF, and continue BR. Patient is tolerating PST this am. Hemodynamics remains stable, will continue gentle IV diurese. close monitoring to renal function and electrolytes. 01/04: Tolerating TF, nausea/vomiting resolved, last BM on 01/03. Continue Reglan X1 more day. Patient continue to tolerate PST. D/W CCM continue gentle diurese. F/U CXR in the am. Possible US thoracentesis tomorrow. 01/05: no acute events overnight. scheduled for thoracentesis today but procedure pushed to tomorrow. TF restarted and will be NPO post MN. 01/06: planned thoracentesis today. Working with CM for ltac/snf approval. 01/07: s/p thoracentesis 120 cc appears to have been removed. Pulm recommendations noted, agree with continued diuresis and weaning. Continued planning with CM for ltac/snf placement. 01/08: No new issues. Continue vent weaning per pulmonary. Continuing to work with CM for placement. 01/09: No new issues. Continue vent weaning per pulmonary. Continuing to work with CM for placement. Ordered BMP for tomorrow to check kidney function as patient is currently being diuresed. 01/10: No new issues. Continue vent weaning/diuresis as directed by pulmonary medicine.BMP demonstrates normal renal function and potassium. Sodium and Chloride consistent with prior labs. Will recheck BMP in 2 days. Placement continues to be an issue as patient has been denied at all facilities. Will reasses with CM on wednesday. 01/11: Emesis overnight. Do not suspect that she is obstructed as she had 2 BM reported. Will order Reglan prn, drop TF rate to goal of 30 cc/hr. Will continue to work on placement. 01/12: Per RN patient had reported that she was tired and did not want to persist in her current state of health. D/w patient Niraj at patient bedside and stated that I recommended the patient/family at least talk with hospice to get a better understanding of their care. He was agreeable. I spoke with Ms. Busby who will help set up referral for hospice service so that family can be educated and, if the patient chooses, can pursue this option. 01/13: Continue supportive care. Family discussing about hospice. Continue reinforcement and continue weaning as tolerated. Prognosis is guarded and poor. Patient is clinically stable to transfer to the next level of care has not required any escalation in management. Has been stable on the vent awake alert following commands. 01/14: Gafvo-[id number]. Considering abdominal distention tube feedings hold along with the fact that the patient vomited yesterday. Will obtain a CT abdomen and pelvis to further evaluate placement. Discussed with nursing staff. Awaiting to have a family conversation with the for goals of care discussion again. 01/15: Continue supportive care, tube feed was restarted yesterday and tolerated, will start on simethicone for gas control and management. Patient is clinically stable for all lower level of care and continued weaning from the ventilator to appropriate facility. Family still undecided about goals of care. We will also check labs intermittently. 01/16: Patient today went for Chest tube placement on the right side for recurrent pleural effusion, with the goal of evaluating to see if we can wean off the vent. She has remained on the vent and with some persistent anxiety. she continues to tolerate tube feed. Again poor prognosis discussed with family. 01/17: Status post chest tube, with output of approximately 1880 cc since placement. Will continue to work with pulmonology for vent weaning. 01/18: Only tolerated 1 hr of t piece trial yesterday per RT. Patient PaO2 50s on abg last night. Will continue to work with pulmonary medicine for vent weaning. abg, cbc, bmp, xr chest ordered for am. 01/19: On t piece trial this AM. labs reviewed. CXR reviewed and appears stable with no new changes. AB.42/47.8/112.3/30.9. Will follow pulmonary recommendations and plan to continue to wean off of vent. 01/20: Per CM, [facility] declined patient admission as there are T stated the patient was not amenable from the vent. Yesterday patient had tolerated T-piece trial for approximately 12 hours. Today patient only tolerated for 45 minutes. Had desatted and stated that she was in pain during today's trial. Output yesterday from chest tube 1000 cc. Today it is 100 cc thus far. Will obtain chest x-ray tomorrow Assessment and Plan Neuro : Anxiety, chronic pain -Neurology consulted, appreciate recommendations -CT brain showed no acute events -EEG interpreted as abnormal record due to diffuse slowing noted throughout the recording, suggestive of encephalopathic process and/or drug effect, possibilities of postictal state cannot be totally excluded. Clinical correlation is in order -MRI brain not obtained-> patient has metal in her body -Repeat CT head with no acute findings -Reorientation as needed -Ammonia 42, B12 1823, TSH 1.5 -BuSpar, Seroquel, [place], gabapentin -prn xanax and Dilaudid Cardio: Acute Heart failure with reduced EF, h/o chronic heart block s/p PPM, HTN, CAD s/p PCI (2004), Moderate pulmonary HTN, cardiomyopathy -s/p vasopressor support with levophed -11/04 echocardiogram shows EF 30 to 35%, Moderate pulmonary HTN RVSP 49 -3 echo with 35-40% EF -Cardiology consulted, appreciate recommendations -Continue beta-charleen and statin therapy -Midodrine (titrate as needed) -Not on aspirin due to allergy -Blood pressure monitoring per protocol -As needed nitroglycerin Resp: Acute hypoxic respiratory failure secondary to bilateral pneumonia, recurrent bilateral pleural effusion s/p rt sided chest tube. Right pneumothorax (resolved). -COVID-19 PCR negative -Intubated on 11/06 with 6.00 ETT at 18 at the lip and changed over bougie on 11/11-7.50 ETT at 20 at the lip -See RT notes for titration -PSV as tolerated -Surgery consult for trach -Received trach/PEG on 11/26 -S/p bedside bronchoscopy on 11/11 complicated by pneumothorax -S/p chest tube placement for right pneumothorax and dislodgment by patient on 11/15 -ABG/CXR per CCM -VAP bundle -Right chest wall ultrasound showed pleural effusion s/p chest tube -12/11 US thoracentesis removed 1L fluid -12/29 US thoracentesis removed 1.4L fluid -01/06 thoracentesis planned -01/16 right-sided chest tube placed by IR -SPO2 monitoring GI: S/p GI bleed, duodenal ulcer, transaminitis -GI consulted, appreciate recommendations-signed off -Nutrition consult for tube feeding, currently on nepro TF 45 cc/hr, dropped to 30 cc/hr due to concerns for emesis. -BR: Senokot -s/p peg 11/26 -H2 charleen -Carafate -24-hour +428 ml -10/2021 Gastric occult positive -> EGD-> duodenal ulcer -12/14 occult stool positive - reglan prn. : Urinary retention (resolved), hyponatremia, hypochloremia -Strict intake and output -Trend BMP ID: Septic shock (POA-resolved), bilateral pneumonia, MRSA bacteremia/pna -Infectious disease consulted, appreciate recommendations -COVID-19 PCR negative -Presented with fevers, leukocytosis and hypotension -11/04 blood cultures positive with a group B strep bacteremia 12/19 however repeat blood cultures on the with no growth to date -Echo showed no evidence of vegetation -repeat echo showed EF 35-40 % with no vegetations -ABX therapy: IV vancomycin for 4 weeks (12/16-01/26) -Monitor WBC and fever curve -Bedside bronchoscopy for mucous plug on CXR 11/11 -f/u blood cultures Heme: Acute DVT in the right external iliac vein, common femoral vein, superior aspect of femoral vein, Acute microcytic anemia -Evidenced on bilateral upper lower extremity ultrasound -S/p 7 unit PRBC -Trend CBC -Transfuse for hemoglobin less than 7 -heparin gtt dc d/t anemia -S/p IVC filter Endo: h/o DM and hypothyroidism -Continue home Synthroid -SSI -Accu-Cheks every 6 -Avoid hypoglycemia The high probability of a clinically significant, sudden or life threatening deterioration of the [multi] system(s) required my full and direct attention, intervention and personal management. The aggregate critical care time was [60] minutes. This time is in addition to time spent performing reported procedures but includes the following: [x] Data Review and interpretation [x] Patient assessment and monitoring of vital signs [x] Documentation [x] Medication orders and management History Interval history: Patient only tolerated T-piece trial today for 45 minutes. Per RN patient was able to tolerate T-piece trial yesterday for 12 hours. Today patient was in more respiratory distress, cited pain, and had desatted to 84% during the trial. Hospitalist Physical - Physical exam Narrative exam: Physical Exam: VITAL SIGNS: Reviewed. GENERAL: The patient appears normally developed, Vital signs as documented. Frail appearing elderly woman. HEAD: No signs of head trauma. EYES: Pupils are equal. Extraocular motions intact. EARS: Hearing grossly intact. MOUTH: Oropharynx is normal. NECK: No adenopathy, no JVD. CHEST: Bl rhonchi. rt sided chest tube in place. CARDIAC: Regular rate and rhythm. S1 and S2, without murmurs, gallops, or rubs. VASCULAR: No Edema. Peripheral pulses normal and equal in all extremities. ABDOMEN: Soft, non tender and non distended. No rebound or guarding, and no masses palpated. Bowel Sounds normal. MUSCULOSKELETAL: Good range of motion of all major joints. Extremities without clubbing, cyanosis or edema. NEUROLOGIC EXAM: Alert and oriented x 4. no focal sensory or strength deficits. PSYCHIATRIC: anxious appearing SKIN: detail exam as documented in skin assessment - Constitutional Vitals: Temp Pulse Resp BP Pulse Ox 96.6 F L 60 18 101/43 100 01/20/22 08:00 01/20/22 10:00 01/20/22 10:00 01/20/22 10:50 01/20/22 10:00 General appearance: Present: no acute distress HEART Score - HEART Score Troponin: Troponin T 0.078 ng/mL (0.00-0.029) H 01/15/22 Unknown Results - Labs CBC & Chem 7: 01/19/22 04:50 01/19/22 04:50 Labs: Laboratory Last Values WBC 10.1 K/mm3 (4.5-11.0) 01/19/22 04:50 RBC 3.14 M/mm3 (3.65-5.03) L 01/19/22 04:50 Hgb 8.4 gm/dl (10.1-14.3) L 01/19/22 04:50 Hct 26.0 % (30.3-42.9) L 01/19/22 04:50 MCV 83 fl (79-97) 01/19/22 04:50 MCH 27 pg (28-32) L 01/19/22 04:50 MCHC 32 % (30-34) 01/19/22 04:50 RDW 18.2 % (13.2-15.2) H 01/19/22 04:50 Plt Count 222 K/mm3 (140-440) 01/19/22 04:50 Lymph % (Auto) 28.2 % (13.4-35.0) 01/19/22 04:50 [place] % (Auto) 5.3 % (0.0-7.3) 01/19/22 04:50 Eos % (Auto) 3.8 % (0.0-4.3) 01/19/22 04:50 Baso % (Auto) 0.8 % (0.0-1.8) 01/19/22 04:50 Lymph # (Auto) 2.8 K/mm3 (1.2-5.4) 01/19/22 04:50 [place] # (Auto) 0.5 K/mm3 (0.0-0.8) 01/19/22 04:50 Eos # (Auto) 0.4 K/mm3 (0.0-0.4) 01/19/22 04:50 Baso # (Auto) 0.1 K/mm3 (0.0-0.1) 01/19/22 04:50 Add Manual Diff Complete 01/19/22 04:50 Total Counted 100 01/15/22 14:36 Seg Neutrophils % 61.9 % (40.0-70.0) 01/19/22 04:50 Seg Neuts % (Manual) 82.0 % (40.0-70.0) H 01/15/22 14:36 Band Neutrophils % 0 % 01/15/22 14:36 Lymphocytes % (Manual) 11.0 % (13.4-35.0) L 01/15/22 14:36 Reactive Lymphs % (Man) 0 % 01/15/22 14:36 Monocytes % (Manual) 5.0 % (0.0-7.3) 01/15/22 14:36 Eosinophils % (Manual) 1.0 % (0.0-4.3) 01/15/22 14:36 Basophils % (Manual) 1.0 % (0.0-1.8) 01/15/22 14:36 Metamyelocytes % 0 % 01/15/22 14:36 Myelocytes % 0 % 01/15/22 14:36 Promyelocytes % 0 % 01/15/22 14:36 Blast Cells % 0 % 01/15/22 14:36 Nucleated RBC % Not Reportable 01/15/22 14:36 Seg Neutrophils # 6.2 K/mm3 (1.8-7.7) 01/19/22 04:50 Seg Neutrophils # Man 8.8 K/mm3 (1.8-7.7) H 01/15/22 14:36 Band Neutrophils # 0.0 K/mm3 01/15/22 14:36 Lymphocytes # (Manual) 1.2 K/mm3 (1.2-5.4) 01/15/22 14:36 Abs React Lymphs (Man) 0.0 K/mm3 01/15/22 14:36 Monocytes # (Manual) 0.5 K/mm3 (0.0-0.8) 01/15/22 14:36 Eosinophils # (Manual) 0.1 K/mm3 (0.0-0.4) 01/15/22 14:36 Basophils # (Manual) 0.1 K/mm3 (0.0-0.1) 01/15/22 14:36 Metamyelocytes # 0.0 K/mm3 01/15/22 14:36 Myelocytes # 0.0 K/mm3 01/15/22 14:36 Promyelocytes # 0.0 K/mm3 01/15/22 14:36 Blast Cells # 0.0 K/mm3 01/15/22 14:36 WBC Morphology Not Reportable 01/15/22 14:36 Hypersegmented Neuts Not Reportable 01/15/22 14:36 Hyposegmented Neuts Not Reportable 01/15/22 14:36 Hypogranular Neuts Not Reportable 01/15/22 14:36 Smudge Cells Not Reportable 01/15/22 14:36 Toxic Granulation Not Reportable 01/15/22 14:36 Toxic Vacuolation Not Reportable 01/15/22 14:36 Dohle Bodies Not Reportable 01/15/22 14:36 Pelger-Huet Anomaly Not Reportable 01/15/22 14:36 Irina Rods Not Reportable 01/15/22 14:36 Platelet Estimate Consistent w auto 01/15/22 14:36 Clumped Platelets Not Reportable 01/15/22 14:36 Plt Clumps, EDTA Not Reportable 01/15/22 14:36 Large Platelets Not Reportable 01/15/22 14:36 Giant Platelets Not Reportable 01/15/22 14:36 Platelet Satelliting Not Reportable 01/15/22 14:36 Plt Morphology Comment Not Reportable 01/15/22 14:36 RBC Morphology Not Reportable 01/15/22 14:36 Dimorphic RBCs Not Reportable 01/15/22 14:36 Polychromasia Not Reportable 01/15/22 14:36 Hypochromasia Not Reportable 01/15/22 14:36 Poikilocytosis Not Reportable 01/15/22 14:36 Anisocytosis 1+ 01/15/22 14:36 Microcytosis Not Reportable 01/15/22 14:36 Macrocytosis Not Reportable 01/15/22 14:36 Spherocytes Not Reportable 01/15/22 14:36 Pappenheimer Bodies Not Reportable 01/15/22 14:36 Sickle Cells Not Reportable 01/15/22 14:36 Target Cells Not Reportable 01/15/22 14:36 Tear Drop Cells Not Reportable 01/15/22 14:36 Ovalocytes Not Reportable 01/15/22 14:36 Helmet Cells Not Reportable 01/15/22 14:36 [place] Bodies Not Reportable 01/15/22 14:36 [place] Rings Not Reportable 01/15/22 14:36 [place] Cells Not Reportable 01/15/22 14:36 Bite Cells Not Reportable 01/15/22 14:36 Crenated Cell Not Reportable 01/15/22 14:36 Elliptocytes Not Reportable 01/15/22 14:36 Acanthocytes (Spur) Not Reportable 01/15/22 14:36 Rouleaux Not Reportable 01/15/22 14:36 Hemoglobin C Crystals Not Reportable 01/15/22 14:36 Schistocytes Not Reportable 01/15/22 14:36 Malaria parasites Not Reportable 01/15/22 14:36 Godfrey Bodies Not Reportable 01/15/22 14:36 Hem Pathologist Commnt No 01/15/22 14:36 PT 16.9 Sec. (12.2-14.9) H 01/06/22 04:06 INR 1.23 (0.87-1.13) H 01/06/22 04:06 APTT 29.2 Sec. (24.2-36.6) 11/26/21 05:00 D-Dimer 2655.00 ng/mlDDU (0-234) H 11/11/21 04:28 ABG pH 7.390 pH Units (7.350-7.450) 01/19/22 20:45 ABG pCO2 50.4 mm Hg 01/19/22 20:45 ABG pO2 95.2 mm Hg (80.0-90.0) H 01/19/22 20:45 ABG HCO3 29.8 mmol/L (20.0-26.0) H 01/19/22 20:45 ABG O2 Saturation 97.3 % (95.0-99.0) 01/19/22 20:45 ABG O2 Content 10.9 (0.0-44) 01/19/22 20:45 ABG Base Excess 4.3 mmol/L (-2.0-3.0) H 01/19/22 20:45 ABG Hemoglobin 8.0 gm/dl (12.0-16.0) L 01/19/22 20:45 ABG Carboxyhemoglobin 1.7 % (0.0-5.0) 01/19/22 20:45 ABG Methemoglobin 0.4 % (0.0-1.5) 01/19/22 20:45 Oxyhemoglobin 95.2 % (95.0-99.0) 01/19/22 20:45 FiO2 35 % 01/19/22 20:45 Sodium 134 mmol/L (137-145) L 01/19/22 04:50 Potassium 3.9 mmol/L (3.6-5.0) 01/19/22 04:50 Chloride 95.4 mmol/L (98-107) L 01/19/22 04:50 Carbon Dioxide 29 mmol/L (22-30) 01/19/22 04:50 Anion Gap 14 mmol/L 01/19/22 04:50 BUN 28 mg/dL (7-17) H 01/19/22 04:50 Creatinine 0.6 mg/dL (0.6-1.2) 01/19/22 04:50 Estimated GFR > 60 ml/min 01/19/22 04:50 BUN/Creatinine Ratio 47 % 01/19/22 04:50 Glucose 100 mg/dL (65-100) 01/19/22 04:50 POC Glucose 118 mg/dL (70-105) H 01/20/22 11:43 Lactic Acid 3.70 mmol/L (0.7-2.0) H* 11/03/21 22:32 Calcium 8.7 mg/dL (8.4-10.2) 01/19/22 04:50 Phosphorus 3.70 mg/dL (2.5-4.5) 01/19/22 04:50 Magnesium 1.80 mg/dL (1.7-2.3) 01/19/22 04:50 Ferritin 52.6 ng/mL (10.0-200.0) 11/05/21 06:11 Total Bilirubin 0.50 mg/dL (0.1-1.2) 11/17/21 05:56 Direct Bilirubin < 0.2 mg/dL (0-0.2) 11/11/21 04:28 Indirect Bilirubin 0.1 mg/dL 11/11/21 04:28 AST 36 units/L (5-40) 11/17/21 05:56 ALT 47 units/L (7-56) 11/17/21 05:56 Alkaline Phosphatase 107 units/L (35-129) 11/17/21 05:56 Ammonia 42.0 umol/L (25-60) 11/10/21 14:08 Lactate Dehydrogenase 187 units/L (91-180) H 11/05/21 06:11 Troponin T 0.078 ng/mL (0.00-0.029) H 01/15/22 Unknown C-Reactive Protein 22.20 mg/dL (0.00-1.30) H 11/05/21 06:11 NT-Pro-B Natriuret Pep 7895 pg/mL (0-900) H 11/03/21 22:32 Total Protein 5.1 g/dL (6.3-8.2) L 11/17/21 05:56 Albumin 2.2 g/dL (3.9-5) L 11/17/21 05:56 Albumin/Globulin Ratio 0.8 % 11/17/21 05:56 Triglycerides 72 mg/dL (2-149) 01/15/22 21:07 Cholesterol 103 mg/dL (50-199) 01/15/22 21:07 LDL Cholesterol Direct 44 mg/dL (50-130) L 01/15/22 21:07 HDL Cholesterol 46 mg/dL (40-59) 01/15/22 21:07 Cholesterol/HDL Ratio 2.23 % 01/15/22 21:07 Vitamin B12 1823 pg/mL (211-911) H 11/10/21 14:08 TSH 1.510 mlU/mL (0.270-4.200) 11/10/21 14:08 Urine Color Yellow (Yellow) 11/11/21 09:00 Urine Turbidity Slightly-cloudy (Clear) 11/11/21 09:00 Urine pH 5.0 (5.0-7.0) 11/11/21 09:00 Ur Specific [place] 1.009 (1.003-1.030) 11/11/21 09:00 Urine Protein <15 mg/dl mg/dL (Negative) 11/11/21 09:00 Urine Glucose (UA) Neg mg/dL (Negative) 11/11/21 09:00 Urine Ketones Neg mg/dL (Negative) 11/11/21 09:00 Urine Blood Mod (Negative) 11/11/21 09:00 Urine Nitrite Neg (Negative) 11/11/21 09:00 Urine Bilirubin Neg (Negative) 11/11/21 09:00 Urine Urobilinogen < 2.0 mg/dL (<2.0) 11/11/21 09:00 Ur Leukocyte Esterase Neg (Negative) 11/11/21 09:00 Urine WBC (Auto) < 1.0 /HPF (0.0-6.0) 11/11/21 09:00 Urine RBC (Auto) < 1.0 /HPF (0.0-6.0) 11/11/21 09:00 Fluid Type Pleural 01/06/22 13:40 Fluid Color Yellow 01/06/22 13:40 Fluid Appearance Hazy 01/06/22 13:40 Fluid WBC 273 /mm3 01/06/22 13:40 Fluid RBC 45 /mm3 01/06/22 13:40 Fluid Seg Neutrophils 47.0 % 01/06/22 13:40 Fluid Lymphocytes 22.0 % 01/06/22 13:40 Fluid Monocytes 10.0 % 01/06/22 13:40 Fluid Eosinophils 19.0 % 01/06/22 13:40 Fluid Basophils 2.0 % 01/06/22 13:40 Fluid Glucose 96 mg/dL (40-70) H 01/06/22 13:40 Fluid Total Protein < 3.0 (15.0-45.0) L 01/06/22 13:40 Fluid LDH 149 01/06/22 13:40 Vancomycin Trough 15.3 ug/mL (5.0-20.0) 01/16/22 07:30 Random Vancomycin 10.5 ug/mL (0-40.0) 01/04/22 05:00 Coronavirus (PCR) Negative (Negative) 11/10/21 08:30 Blood Type O POSITIVE 12/14/21 10:30 Antibody Screen Negative 12/14/21 10:30 Crossmatch See Detail 12/14/21 10:30 Microbiology: Microbiology 01/16/22 Unknown Pleural Fluid - Pleura,Rt Lung Body Fluid Culture - Preliminary Gamble/IV: Voiding Method External Female Catheter Active Medications - Current Medications Current Medications: Generic Name Dose Route Start Last Admin Trade Name Freq PRN Reason Stop Dose Admin Acetaminophen 650 mg 12/14/21 04:12 01/17/22 11:27 Acetaminophen 325 Mg/10.15 Ml Oral Liqd Unit Dose FEEDTUBE 650 mg Q6H PRN Administration Non Cardiac Pain or Temp>100.5 Hydrocodone Bitart/Acetaminophen 1 each 11/21/21 10:00 01/20/22 08:41 Hydrocodone/Acetaminophen 10-325mg Tab FEEDTUBE 1 each TID YOSSI Administration Alprazolam 0.25 mg 12/30/21 09:00 01/20/22 06:15 Alprazolam 0.25 Mg Tab FEEDTUBE 0.25 mg Q8H PRN Administration Agitation Lipase/Protease/Amylase 1 each 11/08/21 11:09 Lipase 10,500/Protease 25,000/Amylase 43,750 (Units) Cap FEEDTUBE PRN PRN For Clogged Feeding Tube Buspirone HCl 7.5 mg 12/30/21 10:00 01/20/22 10:49 Buspirone 5 Mg Tab FEEDTUBE 7.5 mg BID YOSSI Administration Dextrose 50 ml 01/16/22 14:00 Dextrose 50% In Water (25gm) 50 Ml Syringe IV Q30MIN PRN Hypoglycemia Protocol Docusate Sodium 100 mg 12/30/21 10:00 01/20/22 10:49 Docusate Sodium 100 Mg/10 Ml Oral Liqd FEEDTUBE 100 mg BID YOSSI Administration Furosemide 20 mg 01/08/22 10:00 01/20/22 10:50 Furosemide 20 Mg Tab PO 20 mg QDAY YOSSI Administration Gabapentin 100 mg 12/30/21 10:00 01/20/22 10:49 Gabapentin 100 Mg Cap FEEDTUBE 100 mg QDAY YOSSI Administration Hydrophilic Ointment 1 applic 11/06/21 04:02 Lip Therapy Vaseline TP Q2HR PRN Dry Lips Vancomycin HCl 1 gm in 250 mls @ 166.667 mls/hr 01/04/22 10:00 01/20/22 10:52 Vancomycin/Ns 1 Gm/250 Ml IV 01/26/22 11:29 166.667 mls/hr Q48H YOSSI Administration Lansoprazole 30 mg 11/24/21 22:00 01/20/22 10:51 Lansoprazole 30 Mg Solutab FEEDTUBE 30 mg BID YOSSI Administration Levothyroxine Sodium 125 mcg 12/31/21 06:00 01/20/22 06:16 Levothyroxine 125 Mcg Tab FEEDTUBE 125 mcg DAILY@0600 YOSSI Administration Melatonin 5 mg 12/05/21 22:00 01/19/22 22:34 Melatonin 5 Mg Tab PO 5 mg QHS YOSSI Administration Metoclopramide HCl 10 mg 01/11/22 13:25 01/14/22 14:56 Metoclopramide 10 Mg/2 Ml Inj IV 10 mg Q6H PRN Administration Nausea And Vomiting Metoprolol Tartrate 6.25 mg 12/30/21 10:00 01/20/22 10:50 Metoprolol Tartrate 25 Mg Tab FEEDTUBE 6.25 mg BID YOSSI Administration Midodrine 5 mg 12/30/21 09:00 01/20/22 08:41 Midodrine 5 Mg Tab FEEDTUBE 5 mg TID@0800,1200,1600 [facility] Administration Multi-Ingred Cream/Lotion/Oil/Oint 1 applic 11/06/21 04:02 Mineral Oil/Petrolatum, White Ophth Oint 3.5 Gm OU Q4HR PRN Dry Eye(s) Ondansetron HCl 4 mg 12/05/21 10:00 01/19/22 22:36 Ondansetron 4 Mg/2 Ml Inj IV 4 mg Q8H PRN Administration Nausea And Vomiting Polyethylene Glycol 17 gm 12/30/21 10:00 01/20/22 10:51 Polyethylene Glycol 3350 17 Gm Powder FEEDTUBE Not Given QDAY [facility] Pravastatin Sodium 20 mg 12/30/21 22:00 01/19/22 22:34 Pravastatin 20 Mg Tab FEEDTUBE 20 mg QHS YOSSI Administration Quetiapine Fumarate 25 mg 12/30/21 10:00 01/20/22 10:52 Quetiapine 25 Mg Tab FEEDTUBE 25 mg QAM YOSSI Administration Quetiapine Fumarate 50 mg 12/30/21 22:00 01/19/22 22:34 Quetiapine 25 Mg Tab FEEDTUBE 50 mg QHS YOSSI Administration Senna 17.6 mg 12/29/21 11:00 01/20/22 10:52 Sennosides Oral Liqd 8.8 Mg/5 Ml Oral Liqd FEEDTUBE 17.6 mg Q12HR YOSSI Administration Simethicone 80 mg 01/15/22 15:06 01/15/22 21:10 Simethicone 80 Mg Chew Tab PO 80 mg PC PRN Administration Gas pain Simple Syrup 15 ml 11/08/21 11:09 Simple Syrup 15 Ml FEEDTUBE PRN PRN Hypoglycemia Simple Syrup 30 ml 11/08/21 11:09 Simple Syrup 15 Ml FEEDTUBE PRN PRN Hypoglycemia Sodium Bicarbonate 325 mg 11/08/21 11:09 01/09/22 20:25 Sodium Bicarbonate 325 Mg Tab FEEDTUBE 325 mg PRN PRN Administration For Clogged Feeding Tube Sodium Chloride 10 ml 11/04/21 10:00 01/20/22 10:52 Sodium Chloride 0.9% 10 Ml Flush Syringe IV 10 ml BID YOSSI Administration Sodium Chloride 10 ml 11/04/21 02:03 01/09/22 06:35 Sodium Chloride 0.9% 10 Ml Flush Syringe IV 10 ml PRN PRN Administration LINE FLUSH Spironolactone 25 mg 12/30/21 10:00 01/20/22 10:48 Spironolactone 25 Mg Tab FEEDTUBE 25 mg QDAY YOSSI Administration Sucralfate 1 gm 12/30/21 12:00 01/20/22 06:16 Sucralfate 1 Gm/10 Ml Oral Liqd FEEDTUBE 1 gm Q6HR YOSSI Administration Trazodone HCl 50 mg 12/04/21 22:00 01/19/22 22:34 Trazodone 50 Mg Tab PO 50 mg QHS YOSSI Administration Nutrition/Malnutrition Assess - Dietary Evaluation Nutrition/Malnutrition Findings: Nutrition Notes Start: 11/04/21 17:16 Freq: Status: Active Protocol: Document 01/19/22 12:15 [facility] (Rec: 01/19/22 12:21 [facility] [id number]) Nutrition Notes Initial or Follow up Reassessment Current Diagnosis Coronary Artery Disease, Diabetes,Hypertension,Heart Failure,Respiratory Failure Other Pertinent Diagnosis Bilat pleural effusion Current Diet TF - Vital AF 1.2 at 35ml/hr Labs/Tests Na 134 BUN 28 Pertinent Medications Reviewed Height 5 ft Weight 62.3 kg [place] Body Weight (kg) 45.45 BMI 26.8 Weight Status Overweight Subjective/Other Information Observing TF infusing at 35ml/ hr; per, RN, pt tolerating TF. One BM reported this am. Pt on trach collar support at time of visit (10:50). Percent of energy/protein needs met: 84% energy and pro Burn Absent Trauma Absent #2 Nutrition Diagnosis Inadequate enteral nutrition infusion As Evidenced by Signs and Symptoms current TF rate provides at least 75% energy and pro needs Diagnosis Progress(for reassessment Resolved documentation) #1 Nutrition Diagnosis Inadequate oral intake Diagnosis Progress(for reassessment Continues documentation) Is patient on ventilator? No Is Patient Ambulatory and/or Out of Bed No REE-([place]-[facility]. Jeor-confined to bed) 1206.624 Calculation [facility] for [facility]ations [facility] Additional Notes Pro needs 1.2-2g/k-125g/ day Fluid needs 1ml/kcal Nutrition Intervention Nutrition Support: Continue Vital AF 1.2 at 35ml/ hr with 50ml water flush q4h. Kcal 1,008 Protein (gm) 63 Carbohydrates (gm) 45 Fat (gm) 45 Fluid (mL) 681 Fiber (gm) 4 Add Supplement/Snack (indicate name/kcal Jaswant BID /protein ) Provides kCal: 190 Provides Protein (gm) 5 Goal #1 TF tolerance Goal #2 TF to meet at least 75% energy and pro needs Goal #3 Wound healing Follow-Up By: 01/26/22 Additional Comments F/U: stable TF, wt, vent status, wound healing/Jaswant administration
--- NOTE | 2022-01-20 14:27 | Progress Note ---
Assessment and Plan Gram positive Bacteremia (MRSA) Acute respiratory failure with hypoxia, now on MVS Acute microcytic anemia Bilateral pneumonia DVT Left pleural effusion Cardiomyopathy EF 30-35% Moderate pulmonary HTN - care plan discussed with barbara at bedside - to receive Midodrine dose now - 250 mls IVNS bolus if MAP remains < 65 mmHg - RT to resume t-piece trials in am - rest on full MVS overnight for now - keep chest tube to continuous suction in short term (drained 1.8 liters since insertion) - no new issues otherwise, continue care as below; - continue thyroid replacement therapy with Levoxyl - continue Lasix 20 mg p.o. daily - follow I's & O's and monitor electrolytes - continue daily SAT and SBT assessment as tolerated - continue Seroquel - continue Vancomycin for MRSA bacteremia (6 weeks of therapy recommended) - prn Levophed for target MAP > 65 mmHg - continue to wean supplemental oxygen for target O2 sat's > 90% acutely - VAP bundle addressed - continue lung protective strategies - continue bronchodilators with routine trach care and pulmonary hygiene per RT - wean per pulmonary driven protocols otherwise - avoid nephrotoxins, renally dose all medications - continue accuchecks with glycemic control per SSI (While critically ill target blood glucose of 140-180 mg/dL; avoid hypoglycemia) - sedation prn for target RASS 0 to -1 - antibiotics per ID recommendations - continue to avoid benzodiazepine's, reduce the possibility of delirium - prn analgesia per CPOT score - Maintenance of sleep-wake cycle, avoid delirium - continue enteral nutritional support at goal rate as tolerated - G.I. & VTE prophylaxis - PT/OT/ROM exercises - continue mobility protocols for pressure ulcer prophylaxis - Monitor hemodynamics closely - continue other care per attending / other consultants - discharge planning ongoing concurrently COVID SPECIFIC INTERVENTIONS - COVID-19 PCR negative .... Re-evaluate in am & prn CONDITION: CRITICAL PROGNOSIS: GUARDED CODE STATUS: FULL CODE The high probability of a clinically significant, sudden or life-threatening deterioration of the [respiratory, cardiovascular & neurologic] system(s) required my full and direct attention, intervention and personal management. The aggregate critical care time was [34] minutes without overlap. Time includes spent on; [x] Data Review and interpretation [x] Patient assessment and monitoring of vital signs [x] Documentation [x] Medication orders and management Subjective Date of service: 01/20/22 Principal diagnosis: Septic shock; AHRF; Anemia; Pneumonia; pleural effusion; HFrEF; Pulm HTN Interval history: Patient is seen today for: Septic shock; Acute hypoxemic respiratory failure; Anemia; Bilateral pneumonia; Left pleural effusion; HFrEF 30-35%; Pulm HTN RVSP 49 Seen and examined at bedside; 24hour events reviewed; nursing and respiratory care staff consulted; no adverse overnight events reported to me; resting in bed; failed T-piece trial today with desaturations; relative is visiting; on PSV with p-supp @ 10 cm H2O and tolerating well; no N/V/F/C; BP's running low now though Objective Vital Signs - 12hr 01/20/22 01/20/22 01/20/22 03:00 04:00 04:25 Temperature Pulse Rate 60 60 60 Pulse Rate [ From Monitor] Respiratory 11 L 13 Rate Blood Pressure 114/56 103/52 O2 Sat by Pulse 98 99 Oximetry O2 Sat by Pulse Oximetry [ Assessment] 01/20/22 01/20/22 01/20/22 04:32 04:33 05:00 Temperature Pulse Rate 60 64 Pulse Rate [ 64 From Monitor] Respiratory 11 L Rate Blood Pressure 103/52 103/52 O2 Sat by Pulse 99 99 Oximetry O2 Sat by Pulse 99 Oximetry [ Assessment] 01/20/22 01/20/22 01/20/22 06:00 07:00 08:00 Temperature 96.8 F L 96.6 F L Pulse Rate 60 65 60 Pulse Rate [ 60 From Monitor] Respiratory 11 L 13 11 L Rate Blood Pressure 97/61 132/69 103/43 O2 Sat by Pulse 99 100 100 Oximetry O2 Sat by Pulse Oximetry [ Assessment] 01/20/22 01/20/22 01/20/22 08:09 08:17 08:55 Temperature Pulse Rate 60 64 70 Pulse Rate [ From Monitor] Respiratory 20 23 Rate Blood Pressure 103/43 103/43 103/43 O2 Sat by Pulse 100 98 99 Oximetry O2 Sat by Pulse Oximetry [ Assessment] 01/20/22 01/20/22 01/20/22 09:00 10:00 10:50 Temperature Pulse Rate 63 60 Pulse Rate [ From Monitor] Respiratory 23 18 Rate Blood Pressure 128/55 101/43 101/43 O2 Sat by Pulse 99 100 Oximetry O2 Sat by Pulse Oximetry [ Assessment] 01/20/22 01/20/22 01/20/22 11:00 12:00 12:19 Temperature 97.0 F L Pulse Rate 60 60 60 Pulse Rate [ 60 From Monitor] Respiratory 18 17 18 Rate Blood Pressure 112/51 116/53 116/53 O2 Sat by Pulse 100 100 100 Oximetry O2 Sat by Pulse Oximetry [ Assessment] 01/20/22 13:00 Temperature Pulse Rate 60 Pulse Rate [ From Monitor] Respiratory 19 Rate Blood Pressure 110/50 O2 Sat by Pulse 100 Oximetry O2 Sat by Pulse Oximetry [ Assessment] Constitutional: no acute distress, other (trach to MVS, frail elderly woman with mildly increased respiratory effort at rest) Eyes: non-icteric ENT: oropharynx moist, other (+ Midline tracheostomy with minimal secretions) Neck: supple, no lymphadenopathy, no JVD Effort: mildly labored Ascultation: Bilateral: diminished breath sounds, rhonchi, other (Right chest tube) Percussion: Right: not dull, Left: dull (bases) Cardiovascular: regular rate and rhythm, other (S1,S2) Gastrointestinal: normoactive bowel sounds, soft, non-tender, non-distended (protuberant) Integumentary: normal Extremities: no cyanosis, pink and warm, pulses normal, edema (upper etremities), anasarca Neurologic: non-focal exam (grossly), pupils equal and round, motor strength n ormal and Psychiatric: mood appropriate, affect normal CBC and BMP: 01/19/22 04:50 01/19/22 04:50 ABG, PT/INR, D-dimer: ABG ABG pH 7.390 pH Units (7.350-7.450) 01/19/22 20:45 ABG pCO2 50.4 mm Hg 01/19/22 20:45 ABG pO2 95.2 mm Hg (80.0-90.0) H 01/19/22 20:45 ABG O2 Saturation 97.3 % (95.0-99.0) 01/19/22 20:45 PT/INR, D-dimer PT 16.9 Sec. (12.2-14.9) H 01/06/22 04:06 INR 1.23 (0.87-1.13) H 01/06/22 04:06 D-Dimer 2655.00 ng/mlDDU (0-234) H 11/11/21 04:28 Abnormal lab findings: Abnormal Labs 11/03/21 11/03/21 11/03/21 22:32 22:32 22:32 WBC 29.3 H RBC 2.93 L Hgb 6.1 L Hct 21.9 L MCV 75 L MCH 21 L MCHC 28 L RDW 19.7 H Plt Count Seg Neuts % (Manual) 97.0 H Lymphocytes % (Manual) 3.0 L Seg Neutrophils # Man 28.4 H Lymphocytes # (Manual) 0.9 L Monocytes # (Manual) PT 18.6 H INR 1.40 H D-Dimer ABG pH ABG pO2 ABG HCO3 ABG O2 Saturation ABG Base Excess ABG Hemoglobin Oxyhemoglobin Sodium Potassium Chloride Carbon Dioxide 20 L BUN 33 H Creatinine Glucose 119 H POC Glucose Lactic Acid Calcium 8.3 L Phosphorus Magnesium AST ALT Alkaline Phosphatase Lactate Dehydrogenase Troponin T 0.035 H C-Reactive Protein NT-Pro-B Natriuret Pep Total Protein Albumin LDL Cholesterol Direct 34 L Vitamin B12 Fluid Glucose Fluid Total Protein Vancomycin Trough Crossmatch 11/03/21 11/03/21 11/03/21 22:32 22:32 23:57 WBC RBC Hgb Hct MCV MCH MCHC RDW Plt Count Seg Neuts % (Manual) Lymphocytes % (Manual) Seg Neutrophils # Man Lymphocytes # (Manual) Monocytes # (Manual) PT INR D-Dimer ABG pH ABG pO2 ABG HCO3 ABG O2 Saturation ABG Base Excess ABG Hemoglobin Oxyhemoglobin Sodium Potassium Chloride Carbon Dioxide BUN Creatinine Glucose POC Glucose Lactic Acid 3.70 H* Calcium Phosphorus Magnesium AST ALT Alkaline Phosphatase 139 H Lactate Dehydrogenase Troponin T C-Reactive Protein NT-Pro-B Natriuret Pep 7895 H Total Protein Albumin 3.5 L LDL Cholesterol Direct Vitamin B12 Fluid Glucose Fluid Total Protein Vancomycin Trough Crossmatch See Detail 11/04/21 11/04/21 11/05/21 00:59 13:58 00:51 WBC 27.9 H RBC 3.28 L Hgb 7.3 L Hct 25.5 L MCV 78 L MCH 22 L MCHC 29 L RDW 19.1 H Plt Count Seg Neuts % (Manual) 96.0 H Lymphocytes % (Manual) 2.0 L Seg Neutrophils # Man 26.8 H Lymphocytes # (Manual) 0.6 L Monocytes # (Manual) PT INR D-Dimer ABG pH ABG pO2 ABG HCO3 ABG O2 Saturation ABG Base Excess ABG Hemoglobin Oxyhemoglobin Sodium Potassium Chloride Carbon Dioxide BUN Creatinine Glucose POC Glucose Lactic Acid Calcium Phosphorus Magnesium AST ALT Alkaline Phosphatase Lactate Dehydrogenase Troponin T 0.051 H D 0.032 H D C-Reactive Protein NT-Pro-B Natriuret Pep Total Protein Albumin LDL Cholesterol Direct Vitamin B12 Fluid Glucose Fluid Total Protein Vancomycin Trough Crossmatch 11/05/21 11/05/21 11/05/21 06:11 06:11 06:11 WBC 31.8 H RBC 3.57 L Hgb 8.0 L Hct 27.7 L MCV 78 L MCH 22 L MCHC 29 L RDW 19.2 H Plt Count Seg Neuts % (Manual) 91.0 H Lymphocytes % (Manual) 4.5 L Seg Neutrophils # Man 28.9 H Lymphocytes # (Manual) Monocytes # (Manual) 1.1 H PT INR D-Dimer 1494.53 H ABG pH ABG pO2 ABG HCO3 ABG O2 Saturation ABG Base Excess ABG Hemoglobin Oxyhemoglobin Sodium Potassium Chloride Carbon Dioxide 19 L BUN 42 H Creatinine Glucose 115 H POC Glucose Lactic Acid Calcium Phosphorus Magnesium AST 43 H ALT Alkaline Phosphatase Lactate Dehydrogenase 187 H Troponin T C-Reactive Protein 22.20 H NT-Pro-B Natriuret Pep Total Protein 6.0 L Albumin 3.2 L LDL Cholesterol Direct Vitamin B12 Fluid Glucose Fluid Total Protein Vancomycin Trough Crossmatch 11/05/21 11/05/21 11/06/21 06:11 12:15 00:30 WBC RBC Hgb Hct MCV MCH MCHC RDW Plt Count Seg Neuts % (Manual) Lymphocytes % (Manual) Seg Neutrophils # Man Lymphocytes # (Manual) Monocytes # (Manual) PT INR D-Dimer ABG pH ABG pO2 ABG HCO3 ABG O2 Saturation ABG Base Excess ABG Hemoglobin Oxyhemoglobin Sodium Potassium Chloride Carbon Dioxide BUN Creatinine Glucose POC Glucose 113 H 69 L Lactic Acid Calcium Phosphorus Magnesium AST ALT Alkaline Phosphatase Lactate Dehydrogenase Troponin T 0.033 H C-Reactive Protein NT-Pro-B Natriuret Pep Total Protein Albumin LDL Cholesterol Direct Vitamin B12 Fluid Glucose Fluid Total Protein Vancomycin Trough Crossmatch 11/06/21 11/06/21 11/06/21 05:50 15:50 15:50 WBC 25.5 H RBC 3.62 L Hgb 8.0 L Hct 27.5 L MCV 76 L MCH 22 L MCHC 29 L RDW 19.6 H Plt Count Seg Neuts % (Manual) 92.0 H Lymphocytes % (Manual) 5.0 L Seg Neutrophils # Man 23.5 H Lymphocytes # (Manual) Monocytes # (Manual) PT INR D-Dimer ABG pH 7.305 L ABG pO2 ABG HCO3 15.8 L ABG O2 Saturation ABG Base Excess -9.6 L ABG Hemoglobin 8.6 L Oxyhemoglobin 94.6 L Sodium Potassium Chloride 113.9 H Carbon Dioxide 17 L BUN 56 H Creatinine Glucose 114 H POC Glucose Lactic Acid Calcium 7.9 L Phosphorus Magnesium AST 1410 H ALT 934 H Alkaline Phosphatase 142 H Lactate Dehydrogenase Troponin T C-Reactive Protein NT-Pro-B Natriuret Pep Total Protein 5.0 L Albumin 2.6 L LDL Cholesterol Direct Vitamin B12 Fluid Glucose Fluid Total Protein Vancomycin Trough Crossmatch 11/07/21 11/07/21 11/07/21 03:30 04:50 08:07 WBC RBC Hgb Hct MCV MCH MCHC RDW Plt Count Seg Neuts % (Manual) Lymphocytes % (Manual) Seg Neutrophils # Man Lymphocytes # (Manual) Monocytes # (Manual) PT INR D-Dimer ABG pH ABG pO2 296.9 H ABG HCO3 18.1 L ABG O2 Saturation 99.5 H ABG Base Excess -5.9 L ABG Hemoglobin 7.6 L Oxyhemoglobin Sodium Potassium Chloride Carbon Dioxide BUN Creatinine Glucose POC Glucose 106 H 108 H Lactic Acid Calcium Phosphorus Magnesium AST ALT Alkaline Phosphatase Lactate Dehydrogenase Troponin T C-Reactive Protein NT-Pro-B Natriuret Pep Total Protein Albumin LDL Cholesterol Direct Vitamin B12 Fluid Glucose Fluid Total Protein Vancomycin Trough Crossmatch 11/08/21 11/08/21 11/08/21 03:10 18:05 23:43 WBC RBC Hgb Hct MCV MCH MCHC RDW Plt Count Seg Neuts % (Manual) Lymphocytes % (Manual) Seg Neutrophils # Man Lymphocytes # (Manual) Monocytes # (Manual) PT INR D-Dimer ABG pH ABG pO2 127.4 H ABG HCO3 ABG O2 Saturation ABG Base Excess -3.4 L ABG Hemoglobin 7.4 L Oxyhemoglobin Sodium Potassium Chloride Carbon Dioxide BUN Creatinine Glucose POC Glucose 113 H 141 H Lactic Acid Calcium Phosphorus Magnesium AST ALT Alkaline Phosphatase Lactate Dehydrogenase Troponin T C-Reactive Protein NT-Pro-B Natriuret Pep Total Protein Albumin LDL Cholesterol Direct Vitamin B12 Fluid Glucose Fluid Total Protein Vancomycin Trough Crossmatch 11/08/21 11/08/21 11/09/21 Unknown Unknown 02:00 WBC 14.5 H RBC 3.35 L Hgb 7.5 L 8.1 L Hct 25.4 L 27.6 L MCV 76 L 76 L MCH 23 L 22 L MCHC RDW 19.9 H 19.9 H Plt Count Seg Neuts % (Manual) Lymphocytes % (Manual) Seg Neutrophils # Man Lymphocytes # (Manual) Monocytes # (Manual) PT INR D-Dimer ABG pH ABG pO2 ABG HCO3 ABG O2 Saturation ABG Base Excess ABG Hemoglobin Oxyhemoglobin Sodium 154 H D Potassium 3.3 L Chloride 120.7 H Carbon Dioxide 20 L BUN 38 H Creatinine Glucose POC Glucose Lactic Acid Calcium 8.3 L Phosphorus Magnesium AST ALT Alkaline Phosphatase Lactate Dehydrogenase Troponin T C-Reactive Protein NT-Pro-B Natriuret Pep Total Protein Albumin LDL Cholesterol Direct Vitamin B12 Fluid Glucose Fluid Total Protein Vancomycin Trough Crossmatch 11/09/21 11/09/21 11/09/21 02:00 02:31 05:12 WBC RBC Hgb Hct MCV MCH MCHC RDW Plt Count Seg Neuts % (Manual) Lymphocytes % (Manual) Seg Neutrophils # Man Lymphocytes # (Manual) Monocytes # (Manual) PT INR D-Dimer ABG pH 7.479 H ABG pO2 121.3 H ABG HCO3 ABG O2 Saturation ABG Base Excess ABG Hemoglobin 7.3 L Oxyhemoglobin Sodium Potassium Chloride 112.5 H Carbon Dioxide BUN 33 H Creatinine Glucose 161 H POC Glucose 135 H Lactic Acid Calcium Phosphorus Magnesium AST 251 H ALT 481 H Alkaline Phosphatase Lactate Dehydrogenase Troponin T C-Reactive Protein NT-Pro-B Natriuret Pep Total Protein 5.0 L Albumin 2.8 L LDL Cholesterol Direct Vitamin B12 Fluid Glucose Fluid Total Protein Vancomycin Trough Crossmatch 11/09/21 11/09/21 11/09/21 11:33 16:32 23:28 WBC RBC Hgb Hct MCV MCH MCHC RDW Plt Count Seg Neuts % (Manual) Lymphocytes % (Manual) Seg Neutrophils # Man Lymphocytes # (Manual) Monocytes # (Manual) PT INR D-Dimer ABG pH ABG pO2 ABG HCO3 ABG O2 Saturation ABG Base Excess ABG Hemoglobin Oxyhemoglobin Sodium Potassium Chloride Carbon Dioxide BUN Creatinine Glucose POC Glucose 132 H 133 H 143 H Lactic Acid Calcium Phosphorus Magnesium AST ALT Alkaline Phosphatase Lactate Dehydrogenase Troponin T C-Reactive Protein NT-Pro-B Natriuret Pep Total Protein Albumin LDL Cholesterol Direct Vitamin B12 Fluid Glucose Fluid Total Protein Vancomycin Trough Crossmatch 11/10/21 11/10/21 11/10/21 04:00 04:00 05:35 WBC 16.0 H RBC 3.61 L Hgb 8.0 L Hct 27.1 L MCV 75 L MCH 22 L MCHC RDW 20.4 H Plt Count Seg Neuts % (Manual) Lymphocytes % (Manual) Seg Neutrophils # Man Lymphocytes # (Manual) Monocytes # (Manual) PT INR D-Dimer ABG pH ABG pO2 ABG HCO3 ABG O2 Saturation ABG Base Excess ABG Hemoglobin Oxyhemoglobin Sodium 149 H Potassium Chloride 114.1 H Carbon Dioxide BUN 31 H Creatinine Glucose 148 H POC Glucose 132 H Lactic Acid Calcium 8.2 L Phosphorus Magnesium AST ALT Alkaline Phosphatase Lactate Dehydrogenase Troponin T C-Reactive Protein NT-Pro-B Natriuret Pep Total Protein Albumin LDL Cholesterol Direct Vitamin B12 Fluid Glucose Fluid Total Protein Vancomycin Trough Crossmatch 11/10/21 11/10/21 11/10/21 11:31 14:08 15:35 WBC RBC Hgb Hct MCV MCH MCHC RDW Plt Count Seg Neuts % (Manual) Lymphocytes % (Manual) Seg Neutrophils # Man Lymphocytes # (Manual) Monocytes # (Manual) PT INR D-Dimer ABG pH ABG pO2 126.6 H ABG HCO3 ABG O2 Saturation ABG Base Excess ABG Hemoglobin 7.4 L Oxyhemoglobin Sodium Potassium Chloride Carbon Dioxide BUN Creatinine Glucose POC Glucose 147 H Lactic Acid Calcium Phosphorus Magnesium AST ALT Alkaline Phosphatase Lactate Dehydrogenase Troponin T C-Reactive Protein NT-Pro-B Natriuret Pep Total Protein Albumin LDL Cholesterol Direct Vitamin B12 1823 H Fluid Glucose Fluid Total Protein Vancomycin Trough Crossmatch 11/10/21 11/11/21 11/11/21 17:53 00:55 04:28 WBC RBC Hgb Hct MCV MCH MCHC RDW Plt Count Seg Neuts % (Manual) Lymphocytes % (Manual) Seg Neutrophils # Man Lymphocytes # (Manual) Monocytes # (Manual) PT INR D-Dimer ABG pH ABG pO2 ABG HCO3 ABG O2 Saturation ABG Base Excess ABG Hemoglobin Oxyhemoglobin Sodium 149 H Potassium Chloride 112.2 H Carbon Dioxide BUN 34 H Creatinine Glucose 148 H POC Glucose 140 H 145 H Lactic Acid Calcium 7.9 L Phosphorus Magnesium AST 53 H ALT 203 H Alkaline Phosphatase Lactate Dehydrogenase Troponin T C-Reactive Protein NT-Pro-B Natriuret Pep Total Protein 4.9 L Albumin 2.6 L LDL Cholesterol Direct Vitamin B12 Fluid Glucose Fluid Total Protein Vancomycin Trough Crossmatch 11/11/21 11/11/21 11/11/21 04:28 04:28 05:28 WBC 20.9 H RBC 3.47 L Hgb 7.5 L Hct 26.0 L MCV 75 L MCH 22 L MCHC 29 L RDW 21.6 H Plt Count 132 L Seg Neuts % (Manual) Lymphocytes % (Manual) Seg Neutrophils # Man Lymphocytes # (Manual) Monocytes # (Manual) PT INR D-Dimer 2655.00 H ABG pH ABG pO2 ABG HCO3 ABG O2 Saturation ABG Base Excess ABG Hemoglobin Oxyhemoglobin Sodium Potassium Chloride Carbon Dioxide BUN Creatinine Glucose POC Glucose 154 H Lactic Acid Calcium Phosphorus Magnesium AST ALT Alkaline Phosphatase Lactate Dehydrogenase Troponin T C-Reactive Protein NT-Pro-B Natriuret Pep Total Protein Albumin LDL Cholesterol Direct Vitamin B12 Fluid Glucose Fluid Total Protein Vancomycin Trough Crossmatch 11/11/21 11/11/21 11/12/21 12:38 18:13 00:14 WBC RBC Hgb Hct MCV MCH MCHC RDW Plt Count Seg Neuts % (Manual) Lymphocytes % (Manual) Seg Neutrophils # Man Lymphocytes # (Manual) Monocytes # (Manual) PT INR D-Dimer ABG pH ABG pO2 ABG HCO3 ABG O2 Saturation ABG Base Excess ABG Hemoglobin Oxyhemoglobin Sodium Potassium Chloride Carbon Dioxide BUN Creatinine Glucose POC Glucose 137 H 108 H 137 H Lactic Acid Calcium Phosphorus Magnesium AST ALT Alkaline Phosphatase Lactate Dehydrogenase Troponin T C-Reactive Protein NT-Pro-B Natriuret Pep Total Protein Albumin LDL Cholesterol Direct Vitamin B12 Fluid Glucose Fluid Total Protein Vancomycin Trough Crossmatch 11/12/21 11/12/21 11/12/21 05:40 06:24 11:12 WBC RBC Hgb Hct MCV MCH MCHC RDW Plt Count Seg Neuts % (Manual) Lymphocytes % (Manual) Seg Neutrophils # Man Lymphocytes # (Manual) Monocytes # (Manual) PT INR D-Dimer ABG pH 7.586 H ABG pO2 150.6 H ABG HCO3 27.2 H ABG O2 Saturation 99.1 H ABG Base Excess 5.2 H ABG Hemoglobin 7.5 L Oxyhemoglobin Sodium Potassium Chloride Carbon Dioxide BUN Creatinine Glucose POC Glucose 132 H 140 H Lactic Acid Calcium Phosphorus Magnesium AST ALT Alkaline Phosphatase Lactate Dehydrogenase Troponin T C-Reactive Protein NT-Pro-B Natriuret Pep Total Protein Albumin LDL Cholesterol Direct Vitamin B12 Fluid Glucose Fluid Total Protein Vancomycin Trough Crossmatch 11/12/21 11/12/21 11/12/21 14:50 14:50 17:13 WBC 19.8 H RBC 3.27 L Hgb 7.1 L Hct 24.5 L MCV 75 L MCH 22 L MCHC 29 L RDW 22.3 H Plt Count Seg Neuts % (Manual) Lymphocytes % (Manual) Seg Neutrophils # Man Lymphocytes # (Manual) Monocytes # (Manual) PT INR D-Dimer ABG pH ABG pO2 ABG HCO3 ABG O2 Saturation ABG Base Excess ABG Hemoglobin Oxyhemoglobin Sodium 150 H Potassium 3.3 L Chloride 112.0 H Carbon Dioxide BUN 40 H Creatinine Glucose 151 H POC Glucose 121 H Lactic Acid Calcium 7.4 L Phosphorus 1.70 L Magnesium 1.40 L AST ALT Alkaline Phosphatase Lactate Dehydrogenase Troponin T C-Reactive Protein NT-Pro-B Natriuret Pep Total Protein Albumin LDL Cholesterol Direct Vitamin B12 Fluid Glucose Fluid Total Protein Vancomycin Trough Crossmatch 11/12/21 11/13/21 11/13/21 23:19 05:34 06:30 WBC RBC Hgb Hct MCV MCH MCHC RDW Plt Count Seg Neuts % (Manual) Lymphocytes % (Manual) Seg Neutrophils # Man Lymphocytes # (Manual) Monocytes # (Manual) PT INR D-Dimer ABG pH ABG pO2 ABG HCO3 ABG O2 Saturation ABG Base Excess ABG Hemoglobin Oxyhemoglobin Sodium 149 H Potassium Chloride 60.0 L Carbon Dioxide BUN 40 H Creatinine Glucose 146 H POC Glucose 113 H 132 H Lactic Acid Calcium 7.3 L Phosphorus Magnesium 2.40 H AST ALT 72 H Alkaline Phosphatase Lactate Dehydrogenase Troponin T C-Reactive Protein NT-Pro-B Natriuret Pep Total Protein 5.2 L Albumin 2.2 L LDL Cholesterol Direct Vitamin B12 Fluid Glucose Fluid Total Protein Vancomycin Trough Crossmatch 11/13/21 11/13/21 11/13/21 06:30 08:30 11:19 WBC 21.2 H RBC 3.12 L Hgb 6.8 L Hct 23.2 L MCV 74 L MCH 22 L MCHC 29 L RDW 22.2 H Plt Count 135 L Seg Neuts % (Manual) Lymphocytes % (Manual) Seg Neutrophils # Man Lymphocytes # (Manual) Monocytes # (Manual) PT INR D-Dimer ABG pH ABG pO2 ABG HCO3 ABG O2 Saturation ABG Base Excess ABG Hemoglobin Oxyhemoglobin Sodium Potassium Chloride Carbon Dioxide BUN Creatinine Glucose POC Glucose 136 H Lactic Acid Calcium Phosphorus Magnesium AST ALT Alkaline Phosphatase Lactate Dehydrogenase Troponin T C-Reactive Protein NT-Pro-B Natriuret Pep Total Protein Albumin LDL Cholesterol Direct Vitamin B12 Fluid Glucose Fluid Total Protein Vancomycin Trough Crossmatch See Detail 11/13/21 11/14/21 11/14/21 18:21 00:01 04:46 WBC 20.0 H RBC 3.41 L Hgb 7.9 L Hct 26.8 L MCV MCH 23 L MCHC 29 L RDW 24.0 H Plt Count Seg Neuts % (Manual) Lymphocytes % (Manual) Seg Neutrophils # Man Lymphocytes # (Manual) Monocytes # (Manual) PT INR D-Dimer ABG pH ABG pO2 ABG HCO3 ABG O2 Saturation ABG Base Excess ABG Hemoglobin Oxyhemoglobin Sodium Potassium Chloride Carbon Dioxide BUN Creatinine Glucose POC Glucose 149 H 141 H Lactic Acid Calcium Phosphorus Magnesium AST ALT Alkaline Phosphatase Lactate Dehydrogenase Troponin T C-Reactive Protein NT-Pro-B Natriuret Pep Total Protein Albumin LDL Cholesterol Direct Vitamin B12 Fluid Glucose Fluid Total Protein Vancomycin Trough Crossmatch 11/14/21 11/14/21 11/14/21 04:46 05:10 11:10 WBC RBC Hgb Hct MCV MCH MCHC RDW Plt Count Seg Neuts % (Manual) Lymphocytes % (Manual) Seg Neutrophils # Man Lymphocytes # (Manual) Monocytes # (Manual) PT INR D-Dimer ABG pH ABG pO2 ABG HCO3 ABG O2 Saturation ABG Base Excess ABG Hemoglobin Oxyhemoglobin Sodium 148 H Potassium Chloride 113.1 H Carbon Dioxide BUN 43 H Creatinine Glucose 140 H POC Glucose 132 H 133 H Lactic Acid Calcium 7.5 L Phosphorus Magnesium AST ALT Alkaline Phosphatase Lactate Dehydrogenase Troponin T C-Reactive Protein NT-Pro-B Natriuret Pep Total Protein Albumin LDL Cholesterol Direct Vitamin B12 Fluid Glucose Fluid Total Protein Vancomycin Trough Crossmatch 11/14/21 11/14/21 11/14/21 16:14 17:48 23:23 WBC RBC Hgb Hct MCV MCH MCHC RDW Plt Count Seg Neuts % (Manual) Lymphocytes % (Manual) Seg Neutrophils # Man Lymphocytes # (Manual) Monocytes # (Manual) PT INR D-Dimer ABG pH ABG pO2 ABG HCO3 28.0 H ABG O2 Saturation ABG Base Excess 3.1 H ABG Hemoglobin 5.8 L Oxyhemoglobin 94.8 L Sodium Potassium Chloride Carbon Dioxide BUN Creatinine Glucose POC Glucose 130 H 136 H Lactic Acid Calcium Phosphorus Magnesium AST ALT Alkaline Phosphatase Lactate Dehydrogenase Troponin T C-Reactive Protein NT-Pro-B Natriuret Pep Total Protein Albumin LDL Cholesterol Direct Vitamin B12 Fluid Glucose Fluid Total Protein Vancomycin Trough Crossmatch 11/15/21 11/15/21 11/15/21 05:20 05:50 05:50 WBC 19.9 H RBC 3.50 L Hgb 8.2 L Hct 27.9 L MCV MCH 23 L MCHC 29 L RDW 24.9 H Plt Count Seg Neuts % (Manual) Lymphocytes % (Manual) Seg Neutrophils # Man Lymphocytes # (Manual) Monocytes # (Manual) PT INR D-Dimer ABG pH ABG pO2 ABG HCO3 ABG O2 Saturation ABG Base Excess ABG Hemoglobin Oxyhemoglobin Sodium 149 H Potassium Chloride 112.0 H Carbon Dioxide BUN 48 H Creatinine Glucose 152 H POC Glucose 137 H Lactic Acid Calcium 7.9 L Phosphorus Magnesium AST ALT Alkaline Phosphatase Lactate Dehydrogenase Troponin T C-Reactive Protein NT-Pro-B Natriuret Pep Total Protein Albumin LDL Cholesterol Direct Vitamin B12 Fluid Glucose Fluid Total Protein Vancomycin Trough Crossmatch 11/15/21 11/15/21 11/15/21 12:12 17:07 23:24 WBC RBC Hgb Hct MCV MCH MCHC RDW Plt Count Seg Neuts % (Manual) Lymphocytes % (Manual) Seg Neutrophils # Man Lymphocytes # (Manual) Monocytes # (Manual) PT INR D-Dimer ABG pH ABG pO2 ABG HCO3 ABG O2 Saturation ABG Base Excess ABG Hemoglobin Oxyhemoglobin Sodium Potassium Chloride Carbon Dioxide BUN Creatinine Glucose POC Glucose 114 H 135 H 123 H Lactic Acid Calcium Phosphorus Magnesium AST ALT Alkaline Phosphatase Lactate Dehydrogenase Troponin T C-Reactive Protein NT-Pro-B Natriuret Pep Total Protein Albumin LDL Cholesterol Direct Vitamin B12 Fluid Glucose Fluid Total Protein Vancomycin Trough Crossmatch 11/16/21 11/16/21 11/16/21 05:21 10:00 10:00 WBC 21.7 H RBC 2.57 L Hgb 6.0 L Hct 20.2 L D MCV MCH 24 L MCHC RDW 26.3 H Plt Count Seg Neuts % (Manual) Lymphocytes % (Manual) Seg Neutrophils # Man Lymphocytes # (Manual) Monocytes # (Manual) PT INR D-Dimer ABG pH ABG pO2 ABG HCO3 ABG O2 Saturation ABG Base Excess ABG Hemoglobin Oxyhemoglobin Sodium 153 H Potassium Chloride 114.9 H Carbon Dioxide BUN 74 H Creatinine Glucose 155 H POC Glucose 127 H Lactic Acid Calcium 8.1 L Phosphorus Magnesium AST ALT Alkaline Phosphatase Lactate Dehydrogenase Troponin T C-Reactive Protein NT-Pro-B Natriuret Pep Total Protein Albumin LDL Cholesterol Direct Vitamin B12 Fluid Glucose Fluid Total Protein Vancomycin Trough Crossmatch 11/16/21 11/16/21 11/16/21 11:34 14:00 15:25 WBC 17.2 H RBC 2.08 L Hgb 4.7 L* Hct 16.2 L* MCV 78 L MCH 23 L MCHC 29 L RDW 26.0 H Plt Count Seg Neuts % (Manual) 87.0 H Lymphocytes % (Manual) 8.0 L Seg Neutrophils # Man 15.0 H Lymphocytes # (Manual) Monocytes # (Manual) 0.9 H PT INR D-Dimer ABG pH ABG pO2 ABG HCO3 ABG O2 Saturation ABG Base Excess ABG Hemoglobin Oxyhemoglobin Sodium Potassium Chloride Carbon Dioxide BUN Creatinine Glucose POC Glucose 131 H Lactic Acid Calcium Phosphorus Magnesium AST ALT Alkaline Phosphatase Lactate Dehydrogenase Troponin T C-Reactive Protein NT-Pro-B Natriuret Pep Total Protein Albumin LDL Cholesterol Direct Vitamin B12 Fluid Glucose Fluid Total Protein Vancomycin Trough Crossmatch See Detail 11/16/21 11/16/21 11/16/21 15:25 17:21 22:43 WBC RBC Hgb 8.6 L D Hct 27.7 L D MCV MCH MCHC RDW Plt Count Seg Neuts % (Manual) Lymphocytes % (Manual) Seg Neutrophils # Man Lymphocytes # (Manual) Monocytes # (Manual) PT INR D-Dimer ABG pH ABG pO2 ABG HCO3 ABG O2 Saturation ABG Base Excess ABG Hemoglobin Oxyhemoglobin Sodium 148 H Potassium Chloride 113.2 H Carbon Dioxide BUN 84 H Creatinine Glucose 164 H POC Glucose 124 H Lactic Acid Calcium 7.6 L Phosphorus Magnesium AST ALT Alkaline Phosphatase Lactate Dehydrogenase Troponin T C-Reactive Protein NT-Pro-B Natriuret Pep Total Protein Albumin LDL Cholesterol Direct Vitamin B12 Fluid Glucose Fluid Total Protein Vancomycin Trough Crossmatch 11/16/21 11/17/21 11/17/21 23:07 05:33 05:56 WBC 25.1 H RBC 3.47 L Hgb 8.7 L Hct 28.5 L MCV MCH 25 L MCHC RDW 22.3 H Plt Count Seg Neuts % (Manual) Lymphocytes % (Manual) Seg Neutrophils # Man Lymphocytes # (Manual) Monocytes # (Manual) PT INR D-Dimer ABG pH ABG pO2 ABG HCO3 ABG O2 Saturation ABG Base Excess ABG Hemoglobin Oxyhemoglobin Sodium Potassium Chloride Carbon Dioxide BUN Creatinine Glucose POC Glucose 128 H 133 H Lactic Acid Calcium Phosphorus Magnesium AST ALT Alkaline Phosphatase Lactate Dehydrogenase Troponin T C-Reactive Protein NT-Pro-B Natriuret Pep Total Protein Albumin LDL Cholesterol Direct Vitamin B12 Fluid Glucose Fluid Total Protein Vancomycin Trough Crossmatch 11/17/21 11/17/21 11/17/21 05:56 11:00 11:55 WBC RBC Hgb 8.3 L Hct 26.9 L MCV MCH MCHC RDW Plt Count Seg Neuts % (Manual) Lymphocytes % (Manual) Seg Neutrophils # Man Lymphocytes # (Manual) Monocytes # (Manual) PT INR D-Dimer ABG pH ABG pO2 ABG HCO3 ABG O2 Saturation ABG Base Excess ABG Hemoglobin Oxyhemoglobin Sodium 151 H Potassium Chloride 113.6 H Carbon Dioxide BUN 85 H Creatinine Glucose 132 H POC Glucose 121 H Lactic Acid Calcium 7.8 L Phosphorus Magnesium AST ALT Alkaline Phosphatase Lactate Dehydrogenase Troponin T C-Reactive Protein NT-Pro-B Natriuret Pep Total Protein 5.1 L Albumin 2.2 L LDL Cholesterol Direct Vitamin B12 Fluid Glucose Fluid Total Protein Vancomycin Trough Crossmatch 11/17/21 11/17/21 11/18/21 18:04 18:55 00:26 WBC RBC Hgb 7.5 L 7.1 L Hct 24.8 L 23.6 L MCV MCH MCHC RDW Plt Count Seg Neuts % (Manual) Lymphocytes % (Manual) Seg Neutrophils # Man Lymphocytes # (Manual) Monocytes # (Manual) PT INR D-Dimer ABG pH ABG pO2 ABG HCO3 ABG O2 Saturation ABG Base Excess ABG Hemoglobin Oxyhemoglobin Sodium Potassium Chloride Carbon Dioxide BUN Creatinine Glucose POC Glucose 144 H Lactic Acid Calcium Phosphorus Magnesium AST ALT Alkaline Phosphatase Lactate Dehydrogenase Troponin T C-Reactive Protein NT-Pro-B Natriuret Pep Total Protein Albumin LDL Cholesterol Direct Vitamin B12 Fluid Glucose Fluid Total Protein Vancomycin Trough Crossmatch 11/18/21 11/18/21 11/18/21 00:43 05:10 05:10 WBC 12.5 H RBC 2.39 L Hgb 6.1 L Hct 20.2 L MCV MCH 25 L MCHC RDW 23.2 H Plt Count Seg Neuts % (Manual) Lymphocytes % (Manual) Seg Neutrophils # Man Lymphocytes # (Manual) Monocytes # (Manual) PT INR D-Dimer ABG pH ABG pO2 ABG HCO3 ABG O2 Saturation ABG Base Excess ABG Hemoglobin Oxyhemoglobin Sodium 131 L D Potassium 2.9 L* D Chloride 97.8 L Carbon Dioxide BUN 58 H Creatinine Glucose 665 H* POC Glucose 139 H Lactic Acid Calcium 7.0 L Phosphorus 2.20 L D Magnesium 1.50 L AST ALT Alkaline Phosphatase Lactate Dehydrogenase Troponin T C-Reactive Protein NT-Pro-B Natriuret Pep Total Protein Albumin LDL Cholesterol Direct Vitamin B12 Fluid Glucose Fluid Total Protein Vancomycin Trough Crossmatch 11/18/21 11/18/21 11/18/21 05:23 07:10 10:45 WBC RBC Hgb Hct MCV MCH MCHC RDW Plt Count Seg Neuts % (Manual) Lymphocytes % (Manual) Seg Neutrophils # Man Lymphocytes # (Manual) Monocytes # (Manual) PT INR D-Dimer ABG pH ABG pO2 ABG HCO3 ABG O2 Saturation ABG Base Excess ABG Hemoglobin Oxyhemoglobin Sodium 148 H D Potassium 3.1 L Chloride 111.9 H Carbon Dioxide BUN 63 H Creatinine Glucose 141 H POC Glucose 124 H Lactic Acid Calcium 8.1 L D Phosphorus Magnesium AST ALT Alkaline Phosphatase Lactate Dehydrogenase Troponin T C-Reactive Protein NT-Pro-B Natriuret Pep Total Protein Albumin LDL Cholesterol Direct Vitamin B12 Fluid Glucose Fluid Total Protein Vancomycin Trough Crossmatch See Detail 11/18/21 11/19/21 11/19/21 11:57 00:19 04:55 WBC RBC 3.35 L Hgb 9.0 L 8.9 L Hct 28.3 L D 28.1 L MCV MCH 27 L MCHC RDW 20.3 H Plt Count Seg Neuts % (Manual) Lymphocytes % (Manual) Seg Neutrophils # Man Lymphocytes # (Manual) Monocytes # (Manual) PT INR D-Dimer ABG pH ABG pO2 ABG HCO3 ABG O2 Saturation ABG Base Excess ABG Hemoglobin Oxyhemoglobin Sodium Potassium Chloride Carbon Dioxide BUN Creatinine Glucose POC Glucose 119 H Lactic Acid Calcium Phosphorus Magnesium AST ALT Alkaline Phosphatase Lactate Dehydrogenase Troponin T C-Reactive Protein NT-Pro-B Natriuret Pep Total Protein Albumin LDL Cholesterol Direct Vitamin B12 Fluid Glucose Fluid Total Protein Vancomycin Trough Crossmatch 11/19/21 11/19/21 11/20/21 04:55 05:42 00:55 WBC RBC Hgb 9.0 L Hct 28.6 L MCV MCH MCHC RDW Plt Count Seg Neuts % (Manual) Lymphocytes % (Manual) Seg Neutrophils # Man Lymphocytes # (Manual) Monocytes # (Manual) PT INR D-Dimer ABG pH ABG pO2 ABG HCO3 ABG O2 Saturation ABG Base Excess ABG Hemoglobin Oxyhemoglobin Sodium Potassium 3.5 L Chloride 108.6 H Carbon Dioxide BUN 47 H Creatinine Glucose 207 H POC Glucose 63 L Lactic Acid Calcium 7.1 L Phosphorus Magnesium AST ALT Alkaline Phosphatase Lactate Dehydrogenase Troponin T C-Reactive Protein NT-Pro-B Natriuret Pep Total Protein Albumin LDL Cholesterol Direct Vitamin B12 Fluid Glucose Fluid Total Protein Vancomycin Trough Crossmatch 11/20/21 11/20/21 11/20/21 05:40 05:40 Unknown WBC RBC 3.40 L Hgb 9.1 L Hct 28.8 L MCV MCH 27 L MCHC RDW 20.7 H Plt Count Seg Neuts % (Manual) Lymphocytes % (Manual) Seg Neutrophils # Man Lymphocytes # (Manual) Monocytes # (Manual) PT INR D-Dimer ABG pH ABG pO2 ABG HCO3 ABG O2 Saturation ABG Base Excess -2.7 L ABG Hemoglobin 9.5 L Oxyhemoglobin 94.3 L Sodium Potassium 3.5 L Chloride 108.9 H Carbon Dioxide BUN 37 H Creatinine Glucose 117 H POC Glucose Lactic Acid Calcium 7.5 L Phosphorus Magnesium AST ALT Alkaline Phosphatase Lactate Dehydrogenase Troponin T C-Reactive Protein NT-Pro-B Natriuret Pep Total Protein Albumin LDL Cholesterol Direct Vitamin B12 Fluid Glucose Fluid Total Protein Vancomycin Trough Crossmatch 11/21/21 11/21/21 11/21/21 04:30 04:30 16:00 WBC RBC 3.25 L Hgb 8.6 L Hct 28.1 L MCV MCH 26 L MCHC RDW 20.7 H Plt Count Seg Neuts % (Manual) Lymphocytes % (Manual) Seg Neutrophils # Man Lymphocytes # (Manual) Monocytes # (Manual) PT INR D-Dimer ABG pH ABG pO2 114.2 H ABG HCO3 ABG O2 Saturation ABG Base Excess ABG Hemoglobin 9.1 L Oxyhemoglobin Sodium 134 L Potassium Chloride Carbon Dioxide 20 L BUN 34 H Creatinine Glucose POC Glucose Lactic Acid Calcium 7.1 L Phosphorus Magnesium AST ALT Alkaline Phosphatase Lactate Dehydrogenase Troponin T C-Reactive Protein NT-Pro-B Natriuret Pep Total Protein Albumin LDL Cholesterol Direct Vitamin B12 Fluid Glucose Fluid Total Protein Vancomycin Trough Crossmatch 11/22/21 11/22/21 11/22/21 07:07 07:07 23:54 WBC RBC 3.30 L Hgb 9.0 L Hct 28.5 L MCV MCH 27 L MCHC RDW 21.0 H Plt Count Seg Neuts % (Manual) Lymphocytes % (Manual) Seg Neutrophils # Man Lymphocytes # (Manual) Monocytes # (Manual) PT INR D-Dimer ABG pH ABG pO2 ABG HCO3 ABG O2 Saturation ABG Base Excess ABG Hemoglobin Oxyhemoglobin Sodium Potassium Chloride Carbon Dioxide BUN 32 H Creatinine Glucose 106 H POC Glucose 110 H Lactic Acid Calcium 7.5 L Phosphorus Magnesium AST ALT Alkaline Phosphatase Lactate Dehydrogenase Troponin T C-Reactive Protein NT-Pro-B Natriuret Pep Total Protein Albumin LDL Cholesterol Direct Vitamin B12 Fluid Glucose Fluid Total Protein Vancomycin Trough Crossmatch 11/23/21 11/23/21 11/23/21 04:38 04:38 06:01 WBC RBC 3.23 L Hgb 8.8 L Hct 28.0 L MCV MCH 27 L MCHC RDW 21.3 H Plt Count Seg Neuts % (Manual) Lymphocytes % (Manual) Seg Neutrophils # Man Lymphocytes # (Manual) Monocytes # (Manual) PT INR D-Dimer ABG pH ABG pO2 ABG HCO3 ABG O2 Saturation ABG Base Excess ABG Hemoglobin Oxyhemoglobin Sodium 136 L Potassium Chloride Carbon Dioxide 20 L BUN 32 H Creatinine Glucose 109 H POC Glucose 115 H Lactic Acid Calcium 7.7 L Phosphorus Magnesium AST ALT Alkaline Phosphatase Lactate Dehydrogenase Troponin T C-Reactive Protein NT-Pro-B Natriuret Pep Total Protein Albumin LDL Cholesterol Direct Vitamin B12 Fluid Glucose Fluid Total Protein Vancomycin Trough Crossmatch 11/23/21 11/24/21 11/24/21 11:40 00:03 04:13 WBC RBC 3.18 L Hgb 8.5 L Hct 27.5 L MCV MCH 27 L MCHC RDW 21.6 H Plt Count Seg Neuts % (Manual) Lymphocytes % (Manual) Seg Neutrophils # Man Lymphocytes # (Manual) Monocytes # (Manual) PT INR D-Dimer ABG pH ABG pO2 ABG HCO3 ABG O2 Saturation ABG Base Excess ABG Hemoglobin Oxyhemoglobin Sodium Potassium Chloride Carbon Dioxide BUN Creatinine Glucose POC Glucose 117 H 111 H Lactic Acid Calcium Phosphorus Magnesium AST ALT Alkaline Phosphatase Lactate Dehydrogenase Troponin T C-Reactive Protein NT-Pro-B Natriuret Pep Total Protein Albumin LDL Cholesterol Direct Vitamin B12 Fluid Glucose Fluid Total Protein Vancomycin Trough Crossmatch 11/24/21 11/24/21 11/24/21 04:13 05:30 11:10 WBC RBC Hgb Hct MCV MCH MCHC RDW Plt Count Seg Neuts % (Manual) Lymphocytes % (Manual) Seg Neutrophils # Man Lymphocytes # (Manual) Monocytes # (Manual) PT INR D-Dimer ABG pH ABG pO2 ABG HCO3 ABG O2 Saturation ABG Base Excess ABG Hemoglobin Oxyhemoglobin Sodium Potassium Chloride Carbon Dioxide BUN 31 H Creatinine Glucose 101 H POC Glucose 115 H 107 H Lactic Acid Calcium 7.7 L Phosphorus Magnesium AST ALT Alkaline Phosphatase Lactate Dehydrogenase Troponin T C-Reactive Protein NT-Pro-B Natriuret Pep Total Protein Albumin LDL Cholesterol Direct Vitamin B12 Fluid Glucose Fluid Total Protein Vancomycin Trough Crossmatch 11/24/21 11/24/21 11/25/21 16:34 17:57 05:12 WBC RBC 3.11 L Hgb 8.2 L Hct 26.6 L MCV MCH 26 L MCHC RDW 21.3 H Plt Count Seg Neuts % (Manual) Lymphocytes % (Manual) Seg Neutrophils # Man Lymphocytes # (Manual) Monocytes # (Manual) PT INR D-Dimer ABG pH ABG pO2 ABG HCO3 ABG O2 Saturation ABG Base Excess ABG Hemoglobin Oxyhemoglobin Sodium Potassium Chloride Carbon Dioxide BUN Creatinine Glucose POC Glucose 115 H 110 H Lactic Acid Calcium Phosphorus Magnesium AST ALT Alkaline Phosphatase Lactate Dehydrogenase Troponin T C-Reactive Protein NT-Pro-B Natriuret Pep Total Protein Albumin LDL Cholesterol Direct Vitamin B12 Fluid Glucose Fluid Total Protein Vancomycin Trough Crossmatch 11/25/21 11/25/21 11/26/21 05:12 11:20 05:00 WBC RBC 3.30 L Hgb 8.8 L Hct 28.2 L MCV MCH 27 L MCHC RDW 20.7 H Plt Count Seg Neuts % (Manual) Lymphocytes % (Manual) Seg Neutrophils # Man Lymphocytes # (Manual) Monocytes # (Manual) PT INR D-Dimer ABG pH ABG pO2 ABG HCO3 ABG O2 Saturation ABG Base Excess ABG Hemoglobin Oxyhemoglobin Sodium Potassium Chloride Carbon Dioxide BUN 32 H Creatinine Glucose 118 H POC Glucose 118 H Lactic Acid Calcium 8.2 L Phosphorus Magnesium AST ALT Alkaline Phosphatase Lactate Dehydrogenase Troponin T C-Reactive Protein NT-Pro-B Natriuret Pep Total Protein Albumin LDL Cholesterol Direct Vitamin B12 Fluid Glucose Fluid Total Protein Vancomycin Trough Crossmatch 11/26/21 11/26/21 11/26/21 05:00 05:00 05:44 WBC RBC Hgb Hct MCV MCH MCHC RDW Plt Count Seg Neuts % (Manual) Lymphocytes % (Manual) Seg Neutrophils # Man Lymphocytes # (Manual) Monocytes # (Manual) PT 16.9 H INR 1.24 H D-Dimer ABG pH ABG pO2 ABG HCO3 ABG O2 Saturation ABG Base Excess ABG Hemoglobin Oxyhemoglobin Sodium Potassium Chloride Carbon Dioxide BUN 31 H Creatinine Glucose 104 H POC Glucose 110 H Lactic Acid Calcium 7.9 L Phosphorus Magnesium AST ALT Alkaline Phosphatase Lactate Dehydrogenase Troponin T C-Reactive Protein NT-Pro-B Natriuret Pep Total Protein Albumin LDL Cholesterol Direct Vitamin B12 Fluid Glucose Fluid Total Protein Vancomycin Trough Crossmatch 11/26/21 11/27/21 11/27/21 23:55 07:40 07:40 WBC RBC 3.18 L Hgb 8.5 L Hct 27.0 L MCV MCH 27 L MCHC RDW 21.2 H Plt Count Seg Neuts % (Manual) Lymphocytes % (Manual) Seg Neutrophils # Man Lymphocytes # (Manual) Monocytes # (Manual) PT INR D-Dimer ABG pH ABG pO2 ABG HCO3 ABG O2 Saturation ABG Base Excess ABG Hemoglobin Oxyhemoglobin Sodium Potassium Chloride Carbon Dioxide BUN 27 H Creatinine Glucose 112 H POC Glucose 63 L Lactic Acid Calcium 7.6 L Phosphorus Magnesium AST ALT Alkaline Phosphatase Lactate Dehydrogenase Troponin T C-Reactive Protein NT-Pro-B Natriuret Pep Total Protein Albumin LDL Cholesterol Direct Vitamin B12 Fluid Glucose Fluid Total Protein Vancomycin Trough Crossmatch 11/27/21 11/27/21 11/27/21 12:04 13:40 13:40 WBC RBC 3.31 L Hgb 8.7 L Hct 28.0 L MCV MCH 26 L MCHC RDW 20.7 H Plt Count Seg Neuts % (Manual) Lymphocytes % (Manual) Seg Neutrophils # Man Lymphocytes # (Manual) Monocytes # (Manual) PT INR D-Dimer ABG pH ABG pO2 ABG HCO3 ABG O2 Saturation ABG Base Excess ABG Hemoglobin Oxyhemoglobin Sodium 136 L Potassium Chloride Carbon Dioxide BUN 25 H Creatinine Glucose 127 H POC Glucose 109 H Lactic Acid Calcium 7.6 L Phosphorus Magnesium 1.40 L AST ALT Alkaline Phosphatase Lactate Dehydrogenase Troponin T C-Reactive Protein NT-Pro-B Natriuret Pep Total Protein Albumin LDL Cholesterol Direct Vitamin B12 Fluid Glucose Fluid Total Protein Vancomycin Trough Crossmatch 11/27/21 11/27/21 11/28/21 17:44 23:33 12:20 WBC RBC Hgb Hct MCV MCH MCHC RDW Plt Count Seg Neuts % (Manual) Lymphocytes % (Manual) Seg Neutrophils # Man Lymphocytes # (Manual) Monocytes # (Manual) PT INR D-Dimer ABG pH ABG pO2 ABG HCO3 ABG O2 Saturation ABG Base Excess ABG Hemoglobin Oxyhemoglobin Sodium Potassium Chloride Carbon Dioxide BUN Creatinine Glucose POC Glucose 107 H 108 H 114 H Lactic Acid Calcium Phosphorus Magnesium AST ALT Alkaline Phosphatase Lactate Dehydrogenase Troponin T C-Reactive Protein NT-Pro-B Natriuret Pep Total Protein Albumin LDL Cholesterol Direct Vitamin B12 Fluid Glucose Fluid Total Protein Vancomycin Trough Crossmatch 11/29/21 11/29/21 11/29/21 00:09 03:20 03:20 WBC RBC 3.05 L Hgb 8.2 L Hct 25.8 L MCV MCH 27 L MCHC RDW 20.9 H Plt Count Seg Neuts % (Manual) Lymphocytes % (Manual) Seg Neutrophils # Man Lymphocytes # (Manual) Monocytes # (Manual) PT INR D-Dimer ABG pH ABG pO2 ABG HCO3 ABG O2 Saturation ABG Base Excess ABG Hemoglobin Oxyhemoglobin Sodium 133 L Potassium Chloride Carbon Dioxide BUN 24 H Creatinine Glucose 137 H POC Glucose 134 H Lactic Acid Calcium 7.4 L Phosphorus Magnesium AST ALT Alkaline Phosphatase Lactate Dehydrogenase Troponin T C-Reactive Protein NT-Pro-B Natriuret Pep Total Protein Albumin LDL Cholesterol Direct Vitamin B12 Fluid Glucose Fluid Total Protein Vancomycin Trough Crossmatch 11/29/21 11/29/21 11/29/21 05:38 11:39 17:11 WBC RBC Hgb Hct MCV MCH MCHC RDW Plt Count Seg Neuts % (Manual) Lymphocytes % (Manual) Seg Neutrophils # Man Lymphocytes # (Manual) Monocytes # (Manual) PT INR D-Dimer ABG pH ABG pO2 ABG HCO3 ABG O2 Saturation ABG Base Excess ABG Hemoglobin Oxyhemoglobin Sodium Potassium Chloride Carbon Dioxide BUN Creatinine Glucose POC Glucose 117 H 143 H 124 H Lactic Acid Calcium Phosphorus Magnesium AST ALT Alkaline Phosphatase Lactate Dehydrogenase Troponin T C-Reactive Protein NT-Pro-B Natriuret Pep Total Protein Albumin LDL Cholesterol Direct Vitamin B12 Fluid Glucose Fluid Total Protein Vancomycin Trough Crossmatch 11/29/21 11/30/21 11/30/21 20:15 05:40 05:40 WBC 12.6 H RBC 3.41 L Hgb 9.1 L Hct 28.9 L MCV MCH 27 L MCHC RDW 20.4 H Plt Count Seg Neuts % (Manual) Lymphocytes % (Manual) Seg Neutrophils # Man Lymphocytes # (Manual) Monocytes # (Manual) PT INR D-Dimer ABG pH ABG pO2 ABG HCO3 ABG O2 Saturation ABG Base Excess ABG Hemoglobin Oxyhemoglobin Sodium Potassium Chloride Carbon Dioxide BUN 24 H Creatinine Glucose 131 H POC Glucose Lactic Acid Calcium 7.6 L Phosphorus Magnesium AST ALT Alkaline Phosphatase Lactate Dehydrogenase Troponin T 0.045 H C-Reactive Protein NT-Pro-B Natriuret Pep Total Protein Albumin LDL Cholesterol Direct 25 L Vitamin B12 Fluid Glucose Fluid Total Protein Vancomycin Trough Crossmatch 11/30/21 11/30/21 12/01/21 11:29 16:51 05:00 WBC RBC 2.97 L Hgb 8.0 L Hct 25.0 L MCV MCH 27 L MCHC RDW 20.8 H Plt Count Seg Neuts % (Manual) Lymphocytes % (Manual) Seg Neutrophils # Man Lymphocytes # (Manual) Monocytes # (Manual) PT INR D-Dimer ABG pH ABG pO2 ABG HCO3 ABG O2 Saturation ABG Base Excess ABG Hemoglobin Oxyhemoglobin Sodium Potassium Chloride Carbon Dioxide BUN Creatinine Glucose POC Glucose 123 H 114 H Lactic Acid Calcium Phosphorus Magnesium AST ALT Alkaline Phosphatase Lactate Dehydrogenase Troponin T C-Reactive Protein NT-Pro-B Natriuret Pep Total Protein Albumin LDL Cholesterol Direct Vitamin B12 Fluid Glucose Fluid Total Protein Vancomycin Trough Crossmatch 12/01/21 12/01/21 12/01/21 05:00 05:25 11:54 WBC RBC Hgb Hct MCV MCH MCHC RDW Plt Count Seg Neuts % (Manual) Lymphocytes % (Manual) Seg Neutrophils # Man Lymphocytes # (Manual) Monocytes # (Manual) PT INR D-Dimer ABG pH ABG pO2 ABG HCO3 ABG O2 Saturation ABG Base Excess ABG Hemoglobin Oxyhemoglobin Sodium 136 L Potassium Chloride Carbon Dioxide BUN 24 H Creatinine Glucose 117 H POC Glucose 108 H 107 H Lactic Acid Calcium 7.5 L Phosphorus Magnesium 1.60 L AST ALT Alkaline Phosphatase Lactate Dehydrogenase Troponin T C-Reactive Protein NT-Pro-B Natriuret Pep Total Protein Albumin LDL Cholesterol Direct Vitamin B12 Fluid Glucose Fluid Total Protein Vancomycin Trough Crossmatch 12/01/21 12/02/21 12/02/21 17:40 00:07 04:20 WBC RBC 2.92 L Hgb 7.7 L Hct 24.3 L MCV MCH 26 L MCHC RDW 20.5 H Plt Count Seg Neuts % (Manual) Lymphocytes % (Manual) Seg Neutrophils # Man Lymphocytes # (Manual) Monocytes # (Manual) PT INR D-Dimer ABG pH ABG pO2 ABG HCO3 ABG O2 Saturation ABG Base Excess ABG Hemoglobin Oxyhemoglobin Sodium Potassium Chloride Carbon Dioxide BUN Creatinine Glucose POC Glucose 123 H 110 H Lactic Acid Calcium Phosphorus Magnesium AST ALT Alkaline Phosphatase Lactate Dehydrogenase Troponin T C-Reactive Protein NT-Pro-B Natriuret Pep Total Protein Albumin LDL Cholesterol Direct Vitamin B12 Fluid Glucose Fluid Total Protein Vancomycin Trough Crossmatch 12/02/21 12/02/21 12/02/21 04:20 11:17 18:20 WBC RBC Hgb Hct MCV MCH MCHC RDW Plt Count Seg Neuts % (Manual) Lymphocytes % (Manual) Seg Neutrophils # Man Lymphocytes # (Manual) Monocytes # (Manual) PT INR D-Dimer ABG pH ABG pO2 ABG HCO3 ABG O2 Saturation ABG Base Excess ABG Hemoglobin Oxyhemoglobin Sodium 135 L Potassium Chloride Carbon Dioxide BUN 26 H Creatinine Glucose 121 H POC Glucose 117 H 113 H Lactic Acid Calcium 7.4 L Phosphorus Magnesium AST ALT Alkaline Phosphatase Lactate Dehydrogenase Troponin T C-Reactive Protein NT-Pro-B Natriuret Pep Total Protein Albumin LDL Cholesterol Direct Vitamin B12 Fluid Glucose Fluid Total Protein Vancomycin Trough Crossmatch 12/03/21 12/03/21 12/03/21 00:12 04:00 04:00 WBC RBC 2.99 L Hgb 7.8 L Hct 24.6 L MCV MCH 26 L MCHC RDW 20.2 H Plt Count Seg Neuts % (Manual) Lymphocytes % (Manual) Seg Neutrophils # Man Lymphocytes # (Manual) Monocytes # (Manual) PT INR D-Dimer ABG pH ABG pO2 ABG HCO3 ABG O2 Saturation ABG Base Excess ABG Hemoglobin Oxyhemoglobin Sodium 136 L Potassium Chloride Carbon Dioxide BUN 27 H Creatinine Glucose 133 H POC Glucose 121 H Lactic Acid Calcium 7.5 L Phosphorus Magnesium AST ALT Alkaline Phosphatase Lactate Dehydrogenase Troponin T C-Reactive Protein NT-Pro-B Natriuret Pep Total Protein Albumin LDL Cholesterol Direct Vitamin B12 Fluid Glucose Fluid Total Protein Vancomycin Trough Crossmatch 12/03/21 12/03/21 12/03/21 06:30 11:13 16:00 WBC RBC Hgb Hct MCV MCH MCHC RDW Plt Count Seg Neuts % (Manual) Lymphocytes % (Manual) Seg Neutrophils # Man Lymphocytes # (Manual) Monocytes # (Manual) PT INR D-Dimer ABG pH ABG pO2 ABG HCO3 ABG O2 Saturation ABG Base Excess ABG Hemoglobin Oxyhemoglobin Sodium Potassium Chloride Carbon Dioxide BUN Creatinine Glucose POC Glucose 129 H 125 H 125 H Lactic Acid Calcium Phosphorus Magnesium AST ALT Alkaline Phosphatase Lactate Dehydrogenase Troponin T C-Reactive Protein NT-Pro-B Natriuret Pep Total Protein Albumin LDL Cholesterol Direct Vitamin B12 Fluid Glucose Fluid Total Protein Vancomycin Trough Crossmatch 12/03/21 12/04/21 12/04/21 23:32 04:00 05:36 WBC RBC Hgb Hct MCV MCH MCHC RDW Plt Count Seg Neuts % (Manual) Lymphocytes % (Manual) Seg Neutrophils # Man Lymphocytes # (Manual) Monocytes # (Manual) PT INR D-Dimer ABG pH ABG pO2 ABG HCO3 ABG O2 Saturation ABG Base Excess ABG Hemoglobin Oxyhemoglobin Sodium Potassium 3.5 L Chloride Carbon Dioxide BUN 26 H Creatinine 0.5 L Glucose 151 H POC Glucose 133 H 142 H Lactic Acid Calcium 8.3 L Phosphorus Magnesium AST ALT Alkaline Phosphatase Lactate Dehydrogenase Troponin T C-Reactive Protein NT-Pro-B Natriuret Pep Total Protein Albumin LDL Cholesterol Direct Vitamin B12 Fluid Glucose Fluid Total Protein Vancomycin Trough Crossmatch 12/04/21 12/04/21 12/05/21 11:24 15:58 04:36 WBC RBC Hgb Hct MCV MCH MCHC RDW Plt Count Seg Neuts % (Manual) Lymphocytes % (Manual) Seg Neutrophils # Man Lymphocytes # (Manual) Monocytes # (Manual) PT INR D-Dimer ABG pH ABG pO2 ABG HCO3 ABG O2 Saturation ABG Base Excess ABG Hemoglobin Oxyhemoglobin Sodium Potassium Chloride Carbon Dioxide BUN 21 H Creatinine 0.5 L Glucose 119 H POC Glucose 130 H 111 H Lactic Acid Calcium 8.3 L Phosphorus Magnesium AST ALT Alkaline Phosphatase Lactate Dehydrogenase Troponin T C-Reactive Protein NT-Pro-B Natriuret Pep Total Protein Albumin LDL Cholesterol Direct Vitamin B12 Fluid Glucose Fluid Total Protein Vancomycin Trough Crossmatch 12/05/21 12/05/21 12/05/21 05:15 10:40 11:12 WBC RBC 2.98 L Hgb 8.1 L Hct 24.6 L MCV MCH 27 L MCHC RDW 20.8 H Plt Count Seg Neuts % (Manual) Lymphocytes % (Manual) Seg Neutrophils # Man Lymphocytes # (Manual) Monocytes # (Manual) PT INR D-Dimer ABG pH ABG pO2 ABG HCO3 ABG O2 Saturation ABG Base Excess ABG Hemoglobin Oxyhemoglobin Sodium Potassium Chloride Carbon Dioxide BUN Creatinine Glucose POC Glucose 107 H 110 H Lactic Acid Calcium Phosphorus Magnesium AST ALT Alkaline Phosphatase Lactate Dehydrogenase Troponin T C-Reactive Protein NT-Pro-B Natriuret Pep Total Protein Albumin LDL Cholesterol Direct Vitamin B12 Fluid Glucose Fluid Total Protein Vancomycin Trough Crossmatch 12/05/21 12/06/21 12/06/21 23:39 04:25 04:25 WBC RBC 2.95 L Hgb 7.9 L Hct 24.7 L MCV MCH 27 L MCHC RDW 20.9 H Plt Count Seg Neuts % (Manual) Lymphocytes % (Manual) Seg Neutrophils # Man Lymphocytes # (Manual) Monocytes # (Manual) PT INR D-Dimer ABG pH ABG pO2 ABG HCO3 ABG O2 Saturation ABG Base Excess ABG Hemoglobin Oxyhemoglobin Sodium Potassium Chloride Carbon Dioxide BUN 22 H Creatinine 0.5 L Glucose 136 H POC Glucose 118 H Lactic Acid Calcium 8.2 L Phosphorus Magnesium AST ALT Alkaline Phosphatase Lactate Dehydrogenase Troponin T C-Reactive Protein NT-Pro-B Natriuret Pep Total Protein Albumin LDL Cholesterol Direct Vitamin B12 Fluid Glucose Fluid Total Protein Vancomycin Trough Crossmatch 12/06/21 12/06/21 12/07/21 05:28 11:27 04:00 WBC RBC Hgb 7.2 L Hct 21.8 L MCV MCH MCHC RDW Plt Count Seg Neuts % (Manual) Lymphocytes % (Manual) Seg Neutrophils # Man Lymphocytes # (Manual) Monocytes # (Manual) PT INR D-Dimer ABG pH ABG pO2 ABG HCO3 ABG O2 Saturation ABG Base Excess ABG Hemoglobin Oxyhemoglobin Sodium Potassium Chloride Carbon Dioxide BUN Creatinine Glucose POC Glucose 142 H 126 H Lactic Acid Calcium Phosphorus Magnesium AST ALT Alkaline Phosphatase Lactate Dehydrogenase Troponin T C-Reactive Protein NT-Pro-B Natriuret Pep Total Protein Albumin LDL Cholesterol Direct Vitamin B12 Fluid Glucose Fluid Total Protein Vancomycin Trough Crossmatch 12/07/21 12/07/21 12/07/21 04:00 05:30 11:12 WBC RBC Hgb Hct MCV MCH MCHC RDW Plt Count Seg Neuts % (Manual) Lymphocytes % (Manual) Seg Neutrophils # Man Lymphocytes # (Manual) Monocytes # (Manual) PT INR D-Dimer ABG pH ABG pO2 ABG HCO3 ABG O2 Saturation ABG Base Excess ABG Hemoglobin Oxyhemoglobin Sodium Potassium Chloride Carbon Dioxide BUN 22 H Creatinine Glucose 119 H POC Glucose 121 H 124 H Lactic Acid Calcium 8.0 L Phosphorus Magnesium AST ALT Alkaline Phosphatase Lactate Dehydrogenase Troponin T C-Reactive Protein NT-Pro-B Natriuret Pep Total Protein Albumin LDL Cholesterol Direct Vitamin B12 Fluid Glucose Fluid Total Protein Vancomycin Trough Crossmatch 12/08/21 12/08/21 12/08/21 04:00 04:00 05:39 WBC RBC 2.81 L Hgb 7.7 L Hct 23.5 L MCV MCH MCHC RDW 21.2 H Plt Count Seg Neuts % (Manual) Lymphocytes % (Manual) Seg Neutrophils # Man Lymphocytes # (Manual) Monocytes # (Manual) PT INR D-Dimer ABG pH ABG pO2 ABG HCO3 ABG O2 Saturation ABG Base Excess ABG Hemoglobin Oxyhemoglobin Sodium 135 L Potassium Chloride Carbon Dioxide BUN 23 H Creatinine Glucose 109 H POC Glucose 112 H Lactic Acid Calcium Phosphorus Magnesium AST ALT Alkaline Phosphatase Lactate Dehydrogenase Troponin T C-Reactive Protein NT-Pro-B Natriuret Pep Total Protein Albumin LDL Cholesterol Direct Vitamin B12 Fluid Glucose Fluid Total Protein Vancomycin Trough Crossmatch 12/08/21 12/09/21 12/09/21 11:03 04:20 04:20 WBC RBC 2.67 L Hgb 7.6 L Hct 22.1 L MCV MCH MCHC RDW 20.8 H Plt Count Seg Neuts % (Manual) Lymphocytes % (Manual) Seg Neutrophils # Man Lymphocytes # (Manual) Monocytes # (Manual) PT INR D-Dimer ABG pH ABG pO2 ABG HCO3 ABG O2 Saturation ABG Base Excess ABG Hemoglobin Oxyhemoglobin Sodium 135 L Potassium Chloride 97.8 L Carbon Dioxide BUN 26 H Creatinine Glucose 119 H POC Glucose 108 H Lactic Acid Calcium 7.7 L Phosphorus Magnesium AST ALT Alkaline Phosphatase Lactate Dehydrogenase Troponin T C-Reactive Protein NT-Pro-B Natriuret Pep Total Protein Albumin LDL Cholesterol Direct Vitamin B12 Fluid Glucose Fluid Total Protein Vancomycin Trough Crossmatch 12/09/21 12/10/21 12/10/21 11:26 04:33 11:12 WBC RBC Hgb Hct MCV MCH MCHC RDW Plt Count Seg Neuts % (Manual) Lymphocytes % (Manual) Seg Neutrophils # Man Lymphocytes # (Manual) Monocytes # (Manual) PT INR D-Dimer ABG pH ABG pO2 ABG HCO3 ABG O2 Saturation ABG Base Excess ABG Hemoglobin Oxyhemoglobin Sodium 136 L Potassium Chloride Carbon Dioxide BUN 27 H Creatinine Glucose 117 H POC Glucose 110 H 117 H Lactic Acid Calcium 8.2 L Phosphorus Magnesium AST ALT Alkaline Phosphatase Lactate Dehydrogenase Troponin T C-Reactive Protein NT-Pro-B Natriuret Pep Total Protein Albumin LDL Cholesterol Direct Vitamin B12 Fluid Glucose Fluid Total Protein Vancomycin Trough Crossmatch 12/10/21 12/10/21 12/11/21 16:02 23:31 04:35 WBC RBC 2.57 L Hgb 7.0 L Hct 21.4 L MCV MCH 27 L MCHC RDW 21.1 H Plt Count Seg Neuts % (Manual) Lymphocytes % (Manual) Seg Neutrophils # Man Lymphocytes # (Manual) Monocytes # (Manual) PT INR D-Dimer ABG pH ABG pO2 ABG HCO3 ABG O2 Saturation ABG Base Excess ABG Hemoglobin Oxyhemoglobin Sodium Potassium Chloride Carbon Dioxide BUN Creatinine Glucose POC Glucose 137 H 111 H Lactic Acid Calcium Phosphorus Magnesium AST ALT Alkaline Phosphatase Lactate Dehydrogenase Troponin T C-Reactive Protein NT-Pro-B Natriuret Pep Total Protein Albumin LDL Cholesterol Direct Vitamin B12 Fluid Glucose Fluid Total Protein Vancomycin Trough Crossmatch 12/11/21 12/11/21 12/11/21 04:35 12:46 16:07 WBC RBC Hgb Hct MCV MCH MCHC RDW Plt Count Seg Neuts % (Manual) Lymphocytes % (Manual) Seg Neutrophils # Man Lymphocytes # (Manual) Monocytes # (Manual) PT INR D-Dimer ABG pH ABG pO2 ABG HCO3 ABG O2 Saturation ABG Base Excess ABG Hemoglobin Oxyhemoglobin Sodium 136 L Potassium Chloride Carbon Dioxide BUN 27 H Creatinine Glucose 112 H POC Glucose 115 H 111 H Lactic Acid Calcium 7.6 L Phosphorus Magnesium AST ALT Alkaline Phosphatase Lactate Dehydrogenase Troponin T C-Reactive Protein NT-Pro-B Natriuret Pep Total Protein Albumin LDL Cholesterol Direct Vitamin B12 Fluid Glucose Fluid Total Protein Vancomycin Trough Crossmatch 12/11/21 12/12/21 12/12/21 23:42 04:30 04:30 WBC RBC 2.60 L Hgb 7.1 L Hct 21.5 L MCV MCH 27 L MCHC RDW 20.3 H Plt Count Seg Neuts % (Manual) Lymphocytes % (Manual) Seg Neutrophils # Man Lymphocytes # (Manual) Monocytes # (Manual) PT INR D-Dimer ABG pH ABG pO2 ABG HCO3 ABG O2 Saturation ABG Base Excess ABG Hemoglobin Oxyhemoglobin Sodium 135 L Potassium Chloride 97.9 L Carbon Dioxide BUN 26 H Creatinine 0.5 L Glucose 138 H POC Glucose 115 H Lactic Acid Calcium 8.2 L Phosphorus Magnesium AST ALT Alkaline Phosphatase Lactate Dehydrogenase Troponin T C-Reactive Protein NT-Pro-B Natriuret Pep Total Protein Albumin LDL Cholesterol Direct Vitamin B12 Fluid Glucose Fluid Total Protein Vancomycin Trough Crossmatch 12/12/21 12/12/21 12/12/21 04:30 05:10 11:51 WBC RBC Hgb Hct MCV MCH MCHC RDW Plt Count Seg Neuts % (Manual) Lymphocytes % (Manual) Seg Neutrophils # Man Lymphocytes # (Manual) Monocytes # (Manual) PT INR D-Dimer ABG pH ABG pO2 ABG HCO3 ABG O2 Saturation ABG Base Excess ABG Hemoglobin Oxyhemoglobin Sodium Potassium Chloride Carbon Dioxide BUN Creatinine Glucose POC Glucose 119 H 119 H Lactic Acid Calcium Phosphorus Magnesium AST ALT Alkaline Phosphatase Lactate Dehydrogenase Troponin T C-Reactive Protein NT-Pro-B Natriuret Pep Total Protein Albumin LDL Cholesterol Direct Vitamin B12 Fluid Glucose Fluid Total Protein Vancomycin Trough Crossmatch See Detail 12/13/21 12/13/21 12/13/21 00:52 04:00 04:00 WBC RBC 2.73 L Hgb 7.4 L Hct 22.8 L MCV MCH 27 L MCHC RDW 20.5 H Plt Count Seg Neuts % (Manual) Lymphocytes % (Manual) Seg Neutrophils # Man Lymphocytes # (Manual) Monocytes # (Manual) PT INR D-Dimer ABG pH ABG pO2 ABG HCO3 ABG O2 Saturation ABG Base Excess ABG Hemoglobin Oxyhemoglobin Sodium 134 L Potassium Chloride 96.7 L Carbon Dioxide BUN 23 H Creatinine 0.5 L Glucose 131 H POC Glucose 131 H Lactic Acid Calcium 8.1 L Phosphorus Magnesium AST ALT Alkaline Phosphatase Lactate Dehydrogenase Troponin T C-Reactive Protein NT-Pro-B Natriuret Pep Total Protein Albumin LDL Cholesterol Direct Vitamin B12 Fluid Glucose Fluid Total Protein Vancomycin Trough Crossmatch 12/13/21 12/13/21 12/13/21 05:23 12:11 17:18 WBC RBC Hgb Hct MCV MCH MCHC RDW Plt Count Seg Neuts % (Manual) Lymphocytes % (Manual) Seg Neutrophils # Man Lymphocytes # (Manual) Monocytes # (Manual) PT INR D-Dimer ABG pH ABG pO2 ABG HCO3 ABG O2 Saturation ABG Base Excess ABG Hemoglobin Oxyhemoglobin Sodium Potassium Chloride Carbon Dioxide BUN Creatinine Glucose POC Glucose 121 H 143 H 148 H Lactic Acid Calcium Phosphorus Magnesium AST ALT Alkaline Phosphatase Lactate Dehydrogenase Troponin T C-Reactive Protein NT-Pro-B Natriuret Pep Total Protein Albumin LDL Cholesterol Direct Vitamin B12 Fluid Glucose Fluid Total Protein Vancomycin Trough Crossmatch 12/14/21 12/14/21 12/14/21 00:54 04:20 04:20 WBC RBC 2.39 L Hgb 6.5 L Hct 20.3 L MCV MCH 27 L MCHC RDW 20.3 H Plt Count Seg Neuts % (Manual) Lymphocytes % (Manual) Seg Neutrophils # Man Lymphocytes # (Manual) Monocytes # (Manual) PT INR D-Dimer ABG pH ABG pO2 ABG HCO3 ABG O2 Saturation ABG Base Excess ABG Hemoglobin Oxyhemoglobin Sodium 130 L Potassium Chloride 93.5 L Carbon Dioxide BUN 25 H Creatinine Glucose 123 H POC Glucose 123 H Lactic Acid Calcium 8.0 L Phosphorus Magnesium AST ALT Alkaline Phosphatase Lactate Dehydrogenase Troponin T C-Reactive Protein NT-Pro-B Natriuret Pep Total Protein Albumin LDL Cholesterol Direct Vitamin B12 Fluid Glucose Fluid Total Protein Vancomycin Trough Crossmatch 12/14/21 12/14/21 12/14/21 05:06 08:17 10:30 WBC RBC Hgb Hct MCV MCH MCHC RDW Plt Count Seg Neuts % (Manual) Lymphocytes % (Manual) Seg Neutrophils # Man Lymphocytes # (Manual) Monocytes # (Manual) PT INR D-Dimer ABG pH ABG pO2 ABG HCO3 ABG O2 Saturation ABG Base Excess ABG Hemoglobin Oxyhemoglobin Sodium Potassium Chloride Carbon Dioxide BUN Creatinine Glucose POC Glucose 131 H 119 H Lactic Acid Calcium Phosphorus Magnesium AST ALT Alkaline Phosphatase Lactate Dehydrogenase Troponin T C-Reactive Protein NT-Pro-B Natriuret Pep Total Protein Albumin LDL Cholesterol Direct Vitamin B12 Fluid Glucose Fluid Total Protein Vancomycin Trough Crossmatch See Detail 12/14/21 12/14/21 12/14/21 12:15 16:37 23:27 WBC RBC Hgb Hct MCV MCH MCHC RDW Plt Count Seg Neuts % (Manual) Lymphocytes % (Manual) Seg Neutrophils # Man Lymphocytes # (Manual) Monocytes # (Manual) PT INR D-Dimer ABG pH ABG pO2 ABG HCO3 ABG O2 Saturation ABG Base Excess ABG Hemoglobin Oxyhemoglobin Sodium Potassium Chloride Carbon Dioxide BUN Creatinine Glucose POC Glucose 147 H 141 H 130 H Lactic Acid Calcium Phosphorus Magnesium AST ALT Alkaline Phosphatase Lactate Dehydrogenase Troponin T C-Reactive Protein NT-Pro-B Natriuret Pep Total Protein Albumin LDL Cholesterol Direct Vitamin B12 Fluid Glucose Fluid Total Protein Vancomycin Trough Crossmatch 12/15/21 12/15/21 12/15/21 05:00 07:00 07:00 WBC 12.3 H RBC 3.27 L Hgb 8.8 L Hct 27.5 L D MCV MCH 27 L MCHC RDW 19.0 H Plt Count Seg Neuts % (Manual) Lymphocytes % (Manual) Seg Neutrophils # Man Lymphocytes # (Manual) Monocytes # (Manual) PT INR D-Dimer ABG pH ABG pO2 ABG HCO3 ABG O2 Saturation ABG Base Excess ABG Hemoglobin Oxyhemoglobin Sodium 134 L Potassium Chloride 95.7 L Carbon Dioxide BUN 28 H Creatinine Glucose 129 H POC Glucose 129 H Lactic Acid Calcium 8.2 L Phosphorus Magnesium AST ALT Alkaline Phosphatase Lactate Dehydrogenase Troponin T C-Reactive Protein NT-Pro-B Natriuret Pep Total Protein Albumin LDL Cholesterol Direct Vitamin B12 Fluid Glucose Fluid Total Protein Vancomycin Trough Crossmatch 12/15/21 12/15/21 12/15/21 11:18 16:00 23:39 WBC RBC Hgb Hct MCV MCH MCHC RDW Plt Count Seg Neuts % (Manual) Lymphocytes % (Manual) Seg Neutrophils # Man Lymphocytes # (Manual) Monocytes # (Manual) PT INR D-Dimer ABG pH ABG pO2 ABG HCO3 ABG O2 Saturation ABG Base Excess ABG Hemoglobin Oxyhemoglobin Sodium Potassium Chloride Carbon Dioxide BUN Creatinine Glucose POC Glucose 139 H 137 H 146 H Lactic Acid Calcium Phosphorus Magnesium AST ALT Alkaline Phosphatase Lactate Dehydrogenase Troponin T C-Reactive Protein NT-Pro-B Natriuret Pep Total Protein Albumin LDL Cholesterol Direct Vitamin B12 Fluid Glucose Fluid Total Protein Vancomycin Trough Crossmatch 12/16/21 12/16/21 12/16/21 05:24 10:21 10:21 WBC 15.3 H RBC 3.24 L Hgb 8.9 L Hct 27.7 L MCV MCH MCHC RDW 19.0 H Plt Count Seg Neuts % (Manual) Lymphocytes % (Manual) Seg Neutrophils # Man Lymphocytes # (Manual) Monocytes # (Manual) PT INR D-Dimer ABG pH ABG pO2 ABG HCO3 ABG O2 Saturation ABG Base Excess ABG Hemoglobin Oxyhemoglobin Sodium 131 L Potassium 3.5 L Chloride 92.7 L Carbon Dioxide BUN 36 H Creatinine Glucose 160 H POC Glucose 121 H Lactic Acid Calcium Phosphorus Magnesium 1.60 L AST ALT Alkaline Phosphatase Lactate Dehydrogenase Troponin T C-Reactive Protein NT-Pro-B Natriuret Pep Total Protein Albumin LDL Cholesterol Direct Vitamin B12 Fluid Glucose Fluid Total Protein Vancomycin Trough Crossmatch 12/16/21 12/16/21 12/16/21 11:21 18:28 20:52 WBC RBC Hgb Hct MCV MCH MCHC RDW Plt Count Seg Neuts % (Manual) Lymphocytes % (Manual) Seg Neutrophils # Man Lymphocytes # (Manual) Monocytes # (Manual) PT INR D-Dimer ABG pH 7.479 H ABG pO2 79.3 L ABG HCO3 27.3 H ABG O2 Saturation ABG Base Excess 3.6 H ABG Hemoglobin 9.1 L Oxyhemoglobin 94.9 L Sodium Potassium Chloride Carbon Dioxide BUN Creatinine Glucose POC Glucose 153 H 132 H Lactic Acid Calcium Phosphorus Magnesium AST ALT Alkaline Phosphatase Lactate Dehydrogenase Troponin T C-Reactive Protein NT-Pro-B Natriuret Pep Total Protein Albumin LDL Cholesterol Direct Vitamin B12 Fluid Glucose Fluid Total Protein Vancomycin Trough Crossmatch 12/16/21 12/17/21 12/17/21 23:30 04:25 04:25 WBC 12.3 H RBC 2.16 L Hgb 6.0 L Hct 18.1 L* D MCV MCH MCHC RDW 19.4 H Plt Count Seg Neuts % (Manual) Lymphocytes % (Manual) Seg Neutrophils # Man Lymphocytes # (Manual) Monocytes # (Manual) PT INR D-Dimer ABG pH ABG pO2 ABG HCO3 ABG O2 Saturation ABG Base Excess ABG Hemoglobin Oxyhemoglobin Sodium 132 L Potassium 3.2 L Chloride 112.0 H Carbon Dioxide BUN 32 H Creatinine Glucose 122 H POC Glucose 137 H Lactic Acid Calcium 6.8 L D Phosphorus Magnesium AST ALT Alkaline Phosphatase Lactate Dehydrogenase Troponin T C-Reactive Protein NT-Pro-B Natriuret Pep Total Protein Albumin LDL Cholesterol Direct Vitamin B12 Fluid Glucose Fluid Total Protein Vancomycin Trough Crossmatch 12/17/21 12/17/21 12/17/21 05:30 11:49 14:45 WBC RBC Hgb 9.7 L D Hct MCV MCH MCHC RDW Plt Count Seg Neuts % (Manual) Lymphocytes % (Manual) Seg Neutrophils # Man Lymphocytes # (Manual) Monocytes # (Manual) PT INR D-Dimer ABG pH ABG pO2 ABG HCO3 ABG O2 Saturation ABG Base Excess ABG Hemoglobin Oxyhemoglobin Sodium Potassium Chloride Carbon Dioxide BUN Creatinine Glucose POC Glucose 137 H 143 H Lactic Acid Calcium Phosphorus Magnesium AST ALT Alkaline Phosphatase Lactate Dehydrogenase Troponin T C-Reactive Protein NT-Pro-B Natriuret Pep Total Protein Albumin LDL Cholesterol Direct Vitamin B12 Fluid Glucose Fluid Total Protein Vancomycin Trough Crossmatch 12/17/21 12/18/21 12/18/21 17:01 05:04 05:04 WBC 13.8 H RBC 3.44 L Hgb 9.9 L Hct 28.8 L MCV MCH MCHC RDW 18.1 H Plt Count Seg Neuts % (Manual) Lymphocytes % (Manual) Seg Neutrophils # Man Lymphocytes # (Manual) Monocytes # (Manual) PT INR D-Dimer ABG pH ABG pO2 ABG HCO3 ABG O2 Saturation ABG Base Excess ABG Hemoglobin Oxyhemoglobin Sodium 132 L Potassium Chloride 97.4 L Carbon Dioxide BUN 38 H Creatinine Glucose 134 H POC Glucose 132 H Lactic Acid Calcium Phosphorus Magnesium AST ALT Alkaline Phosphatase Lactate Dehydrogenase Troponin T C-Reactive Protein NT-Pro-B Natriuret Pep Total Protein Albumin LDL Cholesterol Direct Vitamin B12 Fluid Glucose Fluid Total Protein Vancomycin Trough Crossmatch 12/18/21 12/18/21 12/18/21 05:28 10:57 16:27 WBC RBC Hgb Hct MCV MCH MCHC RDW Plt Count Seg Neuts % (Manual) Lymphocytes % (Manual) Seg Neutrophils # Man Lymphocytes # (Manual) Monocytes # (Manual) PT INR D-Dimer ABG pH ABG pO2 ABG HCO3 ABG O2 Saturation ABG Base Excess ABG Hemoglobin Oxyhemoglobin Sodium Potassium Chloride Carbon Dioxide BUN Creatinine Glucose POC Glucose 118 H 132 H 130 H Lactic Acid Calcium Phosphorus Magnesium AST ALT Alkaline Phosphatase Lactate Dehydrogenase Troponin T C-Reactive Protein NT-Pro-B Natriuret Pep Total Protein Albumin LDL Cholesterol Direct Vitamin B12 Fluid Glucose Fluid Total Protein Vancomycin Trough Crossmatch 12/19/21 12/19/21 12/19/21 00:02 04:41 04:41 WBC 16.0 H RBC 3.45 L Hgb 9.7 L Hct 29.1 L MCV MCH MCHC RDW 17.8 H Plt Count Seg Neuts % (Manual) Lymphocytes % (Manual) Seg Neutrophils # Man Lymphocytes # (Manual) Monocytes # (Manual) PT INR D-Dimer ABG pH ABG pO2 ABG HCO3 ABG O2 Saturation ABG Base Excess ABG Hemoglobin Oxyhemoglobin Sodium 133 L Potassium Chloride 97.9 L Carbon Dioxide BUN 36 H Creatinine 0.5 L Glucose 126 H POC Glucose 127 H Lactic Acid Calcium 8.3 L Phosphorus Magnesium AST ALT Alkaline Phosphatase Lactate Dehydrogenase Troponin T C-Reactive Protein NT-Pro-B Natriuret Pep Total Protein Albumin LDL Cholesterol Direct Vitamin B12 Fluid Glucose Fluid Total Protein Vancomycin Trough Crossmatch 12/19/21 12/19/21 12/19/21 05:26 12:20 16:43 WBC RBC Hgb Hct MCV MCH MCHC RDW Plt Count Seg Neuts % (Manual) Lymphocytes % (Manual) Seg Neutrophils # Man Lymphocytes # (Manual) Monocytes # (Manual) PT INR D-Dimer ABG pH ABG pO2 ABG HCO3 ABG O2 Saturation ABG Base Excess ABG Hemoglobin Oxyhemoglobin Sodium Potassium Chloride Carbon Dioxide BUN Creatinine Glucose POC Glucose 119 H 145 H 126 H Lactic Acid Calcium Phosphorus Magnesium AST ALT Alkaline Phosphatase Lactate Dehydrogenase Troponin T C-Reactive Protein NT-Pro-B Natriuret Pep Total Protein Albumin LDL Cholesterol Direct Vitamin B12 Fluid Glucose Fluid Total Protein Vancomycin Trough Crossmatch 12/19/21 12/20/21 12/20/21 23:30 04:54 04:54 WBC 12.3 H RBC 3.54 L Hgb 10.0 L Hct 29.5 L MCV MCH MCHC RDW 17.8 H Plt Count Seg Neuts % (Manual) 88.0 H Lymphocytes % (Manual) 6.0 L Seg Neutrophils # Man 10.8 H Lymphocytes # (Manual) 0.7 L Monocytes # (Manual) PT INR D-Dimer ABG pH ABG pO2 ABG HCO3 ABG O2 Saturation ABG Base Excess ABG Hemoglobin Oxyhemoglobin Sodium 131 L Potassium Chloride 96.2 L Carbon Dioxide BUN 36 H Creatinine 0.5 L Glucose 130 H POC Glucose 117 H Lactic Acid Calcium Phosphorus Magnesium AST ALT Alkaline Phosphatase Lactate Dehydrogenase Troponin T C-Reactive Protein NT-Pro-B Natriuret Pep Total Protein Albumin LDL Cholesterol Direct Vitamin B12 Fluid Glucose Fluid Total Protein Vancomycin Trough Crossmatch 12/20/21 12/20/21 12/20/21 05:20 11:51 17:30 WBC RBC Hgb Hct MCV MCH MCHC RDW Plt Count Seg Neuts % (Manual) Lymphocytes % (Manual) Seg Neutrophils # Man Lymphocytes # (Manual) Monocytes # (Manual) PT INR D-Dimer ABG pH ABG pO2 ABG HCO3 ABG O2 Saturation ABG Base Excess ABG Hemoglobin Oxyhemoglobin Sodium Potassium Chloride Carbon Dioxide BUN Creatinine Glucose POC Glucose 126 H 119 H 127 H Lactic Acid Calcium Phosphorus Magnesium AST ALT Alkaline Phosphatase Lactate Dehydrogenase Troponin T C-Reactive Protein NT-Pro-B Natriuret Pep Total Protein Albumin LDL Cholesterol Direct Vitamin B12 Fluid Glucose Fluid Total Protein Vancomycin Trough Crossmatch 12/21/21 12/21/21 12/21/21 00:45 04:21 04:21 WBC RBC 3.47 L Hgb 9.4 L Hct 29.2 L MCV MCH 27 L MCHC RDW 18.1 H Plt Count Seg Neuts % (Manual) Lymphocytes % (Manual) Seg Neutrophils # Man Lymphocytes # (Manual) Monocytes # (Manual) PT INR D-Dimer ABG pH ABG pO2 ABG HCO3 ABG O2 Saturation ABG Base Excess ABG Hemoglobin Oxyhemoglobin Sodium 134 L Potassium Chloride Carbon Dioxide BUN 35 H Creatinine 0.5 L Glucose 122 H POC Glucose 125 H Lactic Acid Calcium 8.2 L Phosphorus Magnesium AST ALT Alkaline Phosphatase Lactate Dehydrogenase Troponin T C-Reactive Protein NT-Pro-B Natriuret Pep Total Protein Albumin LDL Cholesterol Direct Vitamin B12 Fluid Glucose Fluid Total Protein Vancomycin Trough Crossmatch 12/21/21 12/21/21 12/21/21 05:38 11:29 16:16 WBC RBC Hgb Hct MCV MCH MCHC RDW Plt Count Seg Neuts % (Manual) Lymphocytes % (Manual) Seg Neutrophils # Man Lymphocytes # (Manual) Monocytes # (Manual) PT INR D-Dimer ABG pH ABG pO2 ABG HCO3 ABG O2 Saturation ABG Base Excess ABG Hemoglobin Oxyhemoglobin Sodium Potassium Chloride Carbon Dioxide BUN Creatinine Glucose POC Glucose 127 H 121 H 113 H Lactic Acid Calcium Phosphorus Magnesium AST ALT Alkaline Phosphatase Lactate Dehydrogenase Troponin T C-Reactive Protein NT-Pro-B Natriuret Pep Total Protein Albumin LDL Cholesterol Direct Vitamin B12 Fluid Glucose Fluid Total Protein Vancomycin Trough Crossmatch 12/22/21 12/22/21 12/23/21 04:58 04:58 06:40 WBC 11.5 H RBC 3.43 L Hgb 9.8 L Hct 28.7 L MCV MCH MCHC RDW 18.5 H 17.9 H Plt Count Seg Neuts % (Manual) Lymphocytes % (Manual) Seg Neutrophils # Man Lymphocytes # (Manual) Monocytes # (Manual) PT INR D-Dimer ABG pH ABG pO2 ABG HCO3 ABG O2 Saturation ABG Base Excess ABG Hemoglobin Oxyhemoglobin Sodium 130 L Potassium Chloride 97.8 L Carbon Dioxide BUN 31 H Creatinine 0.5 L Glucose 122 H POC Glucose Lactic Acid Calcium 7.9 L Phosphorus Magnesium AST ALT Alkaline Phosphatase Lactate Dehydrogenase Troponin T C-Reactive Protein NT-Pro-B Natriuret Pep Total Protein Albumin LDL Cholesterol Direct Vitamin B12 Fluid Glucose Fluid Total Protein Vancomycin Trough Crossmatch 12/23/21 12/23/21 12/24/21 06:40 23:25 04:24 WBC 11.7 H RBC Hgb 9.8 L Hct MCV MCH 26 L MCHC RDW 18.1 H Plt Count Seg Neuts % (Manual) Lymphocytes % (Manual) Seg Neutrophils # Man Lymphocytes # (Manual) Monocytes # (Manual) PT INR D-Dimer ABG pH ABG pO2 ABG HCO3 ABG O2 Saturation ABG Base Excess ABG Hemoglobin Oxyhemoglobin Sodium 136 L Potassium Chloride Carbon Dioxide BUN 27 H Creatinine 0.4 L Glucose 107 H POC Glucose 110 H Lactic Acid Calcium 8.1 L Phosphorus Magnesium AST ALT Alkaline Phosphatase Lactate Dehydrogenase Troponin T C-Reactive Protein NT-Pro-B Natriuret Pep Total Protein Albumin LDL Cholesterol Direct Vitamin B12 Fluid Glucose Fluid Total Protein Vancomycin Trough Crossmatch 12/24/21 12/24/21 12/24/21 04:24 11:08 15:45 WBC RBC Hgb Hct MCV MCH MCHC RDW Plt Count Seg Neuts % (Manual) Lymphocytes % (Manual) Seg Neutrophils # Man Lymphocytes # (Manual) Monocytes # (Manual) PT INR D-Dimer ABG pH ABG pO2 ABG HCO3 ABG O2 Saturation ABG Base Excess ABG Hemoglobin Oxyhemoglobin Sodium 132 L Potassium Chloride Carbon Dioxide BUN 27 H Creatinine 0.3 L Glucose 108 H POC Glucose 116 H 107 H Lactic Acid Calcium Phosphorus Magnesium AST ALT Alkaline Phosphatase Lactate Dehydrogenase Troponin T C-Reactive Protein NT-Pro-B Natriuret Pep Total Protein Albumin LDL Cholesterol Direct Vitamin B12 Fluid Glucose Fluid Total Protein Vancomycin Trough Crossmatch 12/24/21 12/25/21 12/25/21 23:43 05:29 11:48 WBC RBC Hgb Hct MCV MCH MCHC RDW Plt Count Seg Neuts % (Manual) Lymphocytes % (Manual) Seg Neutrophils # Man Lymphocytes # (Manual) Monocytes # (Manual) PT INR D-Dimer ABG pH ABG pO2 ABG HCO3 ABG O2 Saturation ABG Base Excess ABG Hemoglobin Oxyhemoglobin Sodium Potassium Chloride Carbon Dioxide BUN Creatinine Glucose POC Glucose 123 H 107 H 119 H Lactic Acid Calcium Phosphorus Magnesium AST ALT Alkaline Phosphatase Lactate Dehydrogenase Troponin T C-Reactive Protein NT-Pro-B Natriuret Pep Total Protein Albumin LDL Cholesterol Direct Vitamin B12 Fluid Glucose Fluid Total Protein Vancomycin Trough Crossmatch 12/26/21 12/26/21 12/26/21 00:06 05:56 07:51 WBC 11.4 H RBC 3.40 L Hgb 9.3 L Hct 28.3 L MCV MCH 27 L MCHC RDW 18.2 H Plt Count Seg Neuts % (Manual) Lymphocytes % (Manual) Seg Neutrophils # Man Lymphocytes # (Manual) Monocytes # (Manual) PT INR D-Dimer ABG pH ABG pO2 ABG HCO3 ABG O2 Saturation ABG Base Excess ABG Hemoglobin Oxyhemoglobin Sodium Potassium Chloride Carbon Dioxide BUN Creatinine Glucose POC Glucose 133 H 107 H Lactic Acid Calcium Phosphorus Magnesium AST ALT Alkaline Phosphatase Lactate Dehydrogenase Troponin T C-Reactive Protein NT-Pro-B Natriuret Pep Total Protein Albumin LDL Cholesterol Direct Vitamin B12 Fluid Glucose Fluid Total Protein Vancomycin Trough Crossmatch 12/26/21 12/26/21 12/26/21 07:51 11:43 17:06 WBC RBC Hgb Hct MCV MCH MCHC RDW Plt Count Seg Neuts % (Manual) Lymphocytes % (Manual) Seg Neutrophils # Man Lymphocytes # (Manual) Monocytes # (Manual) PT INR D-Dimer ABG pH ABG pO2 ABG HCO3 ABG O2 Saturation ABG Base Excess ABG Hemoglobin Oxyhemoglobin Sodium 136 L Potassium Chloride Carbon Dioxide BUN 25 H Creatinine 0.3 L Glucose 131 H POC Glucose 119 H 128 H Lactic Acid Calcium Phosphorus Magnesium AST ALT Alkaline Phosphatase Lactate Dehydrogenase Troponin T C-Reactive Protein NT-Pro-B Natriuret Pep Total Protein Albumin LDL Cholesterol Direct Vitamin B12 Fluid Glucose Fluid Total Protein Vancomycin Trough Crossmatch 12/28/21 12/28/21 12/29/21 09:05 09:05 04:40 WBC RBC 3.19 L Hgb 8.9 L Hct 26.4 L MCV MCH 27 L MCHC RDW 18.4 H 17.9 H Plt Count Seg Neuts % (Manual) Lymphocytes % (Manual) Seg Neutrophils # Man Lymphocytes # (Manual) Monocytes # (Manual) PT INR D-Dimer ABG pH ABG pO2 ABG HCO3 ABG O2 Saturation ABG Base Excess ABG Hemoglobin Oxyhemoglobin Sodium 135 L Potassium Chloride 97.8 L Carbon Dioxide BUN 18 H Creatinine 0.3 L Glucose POC Glucose Lactic Acid Calcium Phosphorus Magnesium AST ALT Alkaline Phosphatase Lactate Dehydrogenase Troponin T C-Reactive Protein NT-Pro-B Natriuret Pep Total Protein Albumin LDL Cholesterol Direct Vitamin B12 Fluid Glucose Fluid Total Protein Vancomycin Trough Crossmatch 12/29/21 12/29/21 12/30/21 04:40 12:47 04:05 WBC RBC 3.29 L Hgb 8.7 L Hct 27.6 L MCV MCH 27 L MCHC RDW 17.6 H Plt Count Seg Neuts % (Manual) Lymphocytes % (Manual) Seg Neutrophils # Man Lymphocytes # (Manual) Monocytes # (Manual) PT INR D-Dimer ABG pH ABG pO2 ABG HCO3 ABG O2 Saturation ABG Base Excess ABG Hemoglobin Oxyhemoglobin Sodium 136 L Potassium Chloride Carbon Dioxide BUN Creatinine 0.3 L Glucose POC Glucose 67 L Lactic Acid Calcium 8.3 L Phosphorus Magnesium AST ALT Alkaline Phosphatase Lactate Dehydrogenase Troponin T C-Reactive Protein NT-Pro-B Natriuret Pep Total Protein Albumin LDL Cholesterol Direct Vitamin B12 Fluid Glucose Fluid Total Protein Vancomycin Trough Crossmatch 12/30/21 12/31/21 12/31/21 04:05 00:07 04:00 WBC RBC 3.05 L Hgb 8.5 L Hct 25.5 L MCV MCH MCHC RDW 18.2 H Plt Count Seg Neuts % (Manual) Lymphocytes % (Manual) Seg Neutrophils # Man Lymphocytes # (Manual) Monocytes # (Manual) PT INR D-Dimer ABG pH ABG pO2 ABG HCO3 ABG O2 Saturation ABG Base Excess ABG Hemoglobin Oxyhemoglobin Sodium 136 L Potassium 3.5 L Chloride Carbon Dioxide BUN Creatinine 0.4 L Glucose POC Glucose 139 H Lactic Acid Calcium Phosphorus Magnesium 1.50 L AST ALT Alkaline Phosphatase Lactate Dehydrogenase Troponin T C-Reactive Protein NT-Pro-B Natriuret Pep Total Protein Albumin LDL Cholesterol Direct Vitamin B12 Fluid Glucose Fluid Total Protein Vancomycin Trough Crossmatch 12/31/21 12/31/21 12/31/21 04:00 04:52 11:23 WBC RBC Hgb Hct MCV MCH MCHC RDW Plt Count Seg Neuts % (Manual) Lymphocytes % (Manual) Seg Neutrophils # Man Lymphocytes # (Manual) Monocytes # (Manual) PT INR D-Dimer ABG pH ABG pO2 ABG HCO3 ABG O2 Saturation ABG Base Excess ABG Hemoglobin Oxyhemoglobin Sodium Potassium Chloride Carbon Dioxide BUN 19 H Creatinine 0.4 L Glucose 116 H POC Glucose 121 H 116 H Lactic Acid Calcium Phosphorus Magnesium AST ALT Alkaline Phosphatase Lactate Dehydrogenase Troponin T C-Reactive Protein NT-Pro-B Natriuret Pep Total Protein Albumin LDL Cholesterol Direct Vitamin B12 Fluid Glucose Fluid Total Protein Vancomycin Trough Crossmatch 12/31/21 01/01/22 01/01/22 17:42 04:31 04:31 WBC RBC 2.83 L Hgb 7.7 L Hct 23.2 L MCV MCH 27 L MCHC RDW 18.3 H Plt Count Seg Neuts % (Manual) Lymphocytes % (Manual) Seg Neutrophils # Man Lymphocytes # (Manual) Monocytes # (Manual) PT INR D-Dimer ABG pH ABG pO2 ABG HCO3 ABG O2 Saturation ABG Base Excess ABG Hemoglobin Oxyhemoglobin Sodium 135 L Potassium Chloride 97.7 L Carbon Dioxide BUN 21 H Creatinine 0.5 L Glucose 127 H POC Glucose 107 H Lactic Acid Calcium 8.0 L Phosphorus Magnesium AST ALT Alkaline Phosphatase Lactate Dehydrogenase Troponin T C-Reactive Protein NT-Pro-B Natriuret Pep Total Protein Albumin LDL Cholesterol Direct Vitamin B12 Fluid Glucose Fluid Total Protein Vancomycin Trough Crossmatch 03/01/01/22 01/01/22 05:24 11:25 18:11 WBC RBC Hgb Hct MCV MCH MCHC RDW Plt Count Seg Neuts % (Manual) Lymphocytes % (Manual) Seg Neutrophils # Man Lymphocytes # (Manual) Monocytes # (Manual) PT INR D-Dimer ABG pH ABG pO2 ABG HCO3 ABG O2 Saturation ABG Base Excess ABG Hemoglobin Oxyhemoglobin Sodium Potassium Chloride Carbon Dioxide BUN Creatinine Glucose POC Glucose 124 H 140 H 144 H Lactic Acid Calcium Phosphorus Magnesium AST ALT Alkaline Phosphatase Lactate Dehydrogenase Troponin T C-Reactive Protein NT-Pro-B Natriuret Pep Total Protein Albumin LDL Cholesterol Direct Vitamin B12 Fluid Glucose Fluid Total Protein Vancomycin Trough Crossmatch 01/01/22 01/02/22 01/02/22 23:26 04:01 04:01 WBC RBC 2.57 L Hgb 7.1 L Hct 21.5 L MCV MCH MCHC RDW 18.1 H Plt Count Seg Neuts % (Manual) Lymphocytes % (Manual) Seg Neutrophils # Man Lymphocytes # (Manual) Monocytes # (Manual) PT INR D-Dimer ABG pH ABG pO2 ABG HCO3 ABG O2 Saturation ABG Base Excess ABG Hemoglobin Oxyhemoglobin Sodium 131 L Potassium 3.5 L Chloride 94.8 L Carbon Dioxide BUN 27 H Creatinine Glucose 121 H POC Glucose 121 H Lactic Acid Calcium Phosphorus Magnesium AST ALT Alkaline Phosphatase Lactate Dehydrogenase Troponin T C-Reactive Protein NT-Pro-B Natriuret Pep Total Protein Albumin LDL Cholesterol Direct Vitamin B12 Fluid Glucose Fluid Total Protein Vancomycin Trough Crossmatch 01/02/22 01/02/22 01/02/22 05:30 11:10 16:08 WBC RBC Hgb Hct MCV MCH MCHC RDW Plt Count Seg Neuts % (Manual) Lymphocytes % (Manual) Seg Neutrophils # Man Lymphocytes # (Manual) Monocytes # (Manual) PT INR D-Dimer ABG pH ABG pO2 ABG HCO3 ABG O2 Saturation ABG Base Excess ABG Hemoglobin Oxyhemoglobin Sodium Potassium Chloride Carbon Dioxide BUN Creatinine Glucose POC Glucose 124 H 117 H 130 H Lactic Acid Calcium Phosphorus Magnesium AST ALT Alkaline Phosphatase Lactate Dehydrogenase Troponin T C-Reactive Protein NT-Pro-B Natriuret Pep Total Protein Albumin LDL Cholesterol Direct Vitamin B12 Fluid Glucose Fluid Total Protein Vancomycin Trough Crossmatch 01/02/22 01/02/22 01/03/22 17:30 23:26 04:53 WBC RBC 2.82 L Hgb 7.7 L Hct 23.4 L MCV MCH 27 L MCHC RDW 18.0 H Plt Count Seg Neuts % (Manual) Lymphocytes % (Manual) Seg Neutrophils # Man Lymphocytes # (Manual) Monocytes # (Manual) PT INR D-Dimer ABG pH ABG pO2 ABG HCO3 ABG O2 Saturation ABG Base Excess ABG Hemoglobin Oxyhemoglobin Sodium Potassium Chloride Carbon Dioxide BUN Creatinine Glucose POC Glucose 114 H Lactic Acid Calcium Phosphorus Magnesium AST ALT Alkaline Phosphatase Lactate Dehydrogenase Troponin T C-Reactive Protein NT-Pro-B Natriuret Pep Total Protein Albumin LDL Cholesterol Direct Vitamin B12 Fluid Glucose Fluid Total Protein Vancomycin Trough 22.8 H Crossmatch 01/03/22 01/03/22 01/03/22 04:53 06:23 17:35 WBC RBC Hgb Hct MCV MCH MCHC RDW Plt Count Seg Neuts % (Manual) Lymphocytes % (Manual) Seg Neutrophils # Man Lymphocytes # (Manual) Monocytes # (Manual) PT INR D-Dimer ABG pH ABG pO2 ABG HCO3 ABG O2 Saturation ABG Base Excess ABG Hemoglobin Oxyhemoglobin Sodium 133 L Potassium Chloride 96.2 L Carbon Dioxide BUN 30 H Creatinine Glucose 107 H POC Glucose 122 H 107 H Lactic Acid Calcium Phosphorus Magnesium AST ALT Alkaline Phosphatase Lactate Dehydrogenase Troponin T C-Reactive Protein NT-Pro-B Natriuret Pep Total Protein Albumin LDL Cholesterol Direct Vitamin B12 Fluid Glucose Fluid Total Protein Vancomycin Trough Crossmatch 01/04/22 01/04/22 01/04/22 04:00 12:32 16:45 WBC RBC Hgb Hct MCV MCH MCHC RDW Plt Count Seg Neuts % (Manual) Lymphocytes % (Manual) Seg Neutrophils # Man Lymphocytes # (Manual) Monocytes # (Manual) PT INR D-Dimer ABG pH ABG pO2 ABG HCO3 ABG O2 Saturation ABG Base Excess ABG Hemoglobin Oxyhemoglobin Sodium 132 L Potassium Chloride 92.8 L Carbon Dioxide BUN 30 H Creatinine Glucose 115 H POC Glucose 111 H 111 H Lactic Acid Calcium Phosphorus Magnesium 1.60 L AST ALT Alkaline Phosphatase Lactate Dehydrogenase Troponin T C-Reactive Protein NT-Pro-B Natriuret Pep Total Protein Albumin LDL Cholesterol Direct Vitamin B12 Fluid Glucose Fluid Total Protein Vancomycin Trough Crossmatch 01/05/22 01/05/22 01/05/22 04:30 04:30 17:04 WBC RBC 3.11 L Hgb 8.4 L Hct 25.5 L MCV MCH 27 L MCHC RDW 17.6 H Plt Count Seg Neuts % (Manual) Lymphocytes % (Manual) Seg Neutrophils # Man Lymphocytes # (Manual) Monocytes # (Manual) PT INR D-Dimer ABG pH ABG pO2 ABG HCO3 ABG O2 Saturation ABG Base Excess ABG Hemoglobin Oxyhemoglobin Sodium 135 L Potassium Chloride 93.6 L Carbon Dioxide BUN 29 H Creatinine Glucose POC Glucose 67 L Lactic Acid Calcium Phosphorus Magnesium AST ALT Alkaline Phosphatase Lactate Dehydrogenase Troponin T C-Reactive Protein NT-Pro-B Natriuret Pep Total Protein Albumin LDL Cholesterol Direct Vitamin B12 Fluid Glucose Fluid Total Protein Vancomycin Trough Crossmatch 01/05/22 01/06/22 01/06/22 23:27 04:06 04:06 WBC RBC 2.89 L Hgb 7.7 L Hct 23.8 L MCV MCH 27 L MCHC RDW 18.0 H Plt Count Seg Neuts % (Manual) Lymphocytes % (Manual) Seg Neutrophils # Man Lymphocytes # (Manual) Monocytes # (Manual) PT 16.9 H INR 1.23 H D-Dimer ABG pH ABG pO2 ABG HCO3 ABG O2 Saturation ABG Base Excess ABG Hemoglobin Oxyhemoglobin Sodium Potassium Chloride Carbon Dioxide BUN Creatinine Glucose POC Glucose 110 H Lactic Acid Calcium Phosphorus Magnesium AST ALT Alkaline Phosphatase Lactate Dehydrogenase Troponin T C-Reactive Protein NT-Pro-B Natriuret Pep Total Protein Albumin LDL Cholesterol Direct Vitamin B12 Fluid Glucose Fluid Total Protein Vancomycin Trough Crossmatch 01/06/22 01/06/22 01/06/22 04:06 13:40 23:41 WBC RBC Hgb Hct MCV MCH MCHC RDW Plt Count Seg Neuts % (Manual) Lymphocytes % (Manual) Seg Neutrophils # Man Lymphocytes # (Manual) Monocytes # (Manual) PT INR D-Dimer ABG pH ABG pO2 ABG HCO3 ABG O2 Saturation ABG Base Excess ABG Hemoglobin Oxyhemoglobin Sodium 132 L Potassium Chloride 92.3 L Carbon Dioxide BUN 26 H Creatinine Glucose 111 H POC Glucose 120 H Lactic Acid Calcium Phosphorus Magnesium AST ALT Alkaline Phosphatase Lactate Dehydrogenase Troponin T C-Reactive Protein NT-Pro-B Natriuret Pep Total Protein Albumin LDL Cholesterol Direct Vitamin B12 Fluid Glucose 96 H Fluid Total Protein < 3.0 L Vancomycin Trough Crossmatch 01/07/22 01/07/22 01/07/22 05:20 11:30 17:00 WBC RBC Hgb Hct MCV MCH MCHC RDW Plt Count Seg Neuts % (Manual) Lymphocytes % (Manual) Seg Neutrophils # Man Lymphocytes # (Manual) Monocytes # (Manual) PT INR D-Dimer ABG pH ABG pO2 ABG HCO3 ABG O2 Saturation ABG Base Excess ABG Hemoglobin Oxyhemoglobin Sodium Potassium Chloride Carbon Dioxide BUN Creatinine Glucose POC Glucose 111 H 113 H 121 H Lactic Acid Calcium Phosphorus Magnesium AST ALT Alkaline Phosphatase Lactate Dehydrogenase Troponin T C-Reactive Protein NT-Pro-B Natriuret Pep Total Protein Albumin LDL Cholesterol Direct Vitamin B12 Fluid Glucose Fluid Total Protein Vancomycin Trough Crossmatch 01/07/22 01/08/22 01/08/22 23:41 11:26 16:23 WBC RBC Hgb Hct MCV MCH MCHC RDW Plt Count Seg Neuts % (Manual) Lymphocytes % (Manual) Seg Neutrophils # Man Lymphocytes # (Manual) Monocytes # (Manual) PT INR D-Dimer ABG pH ABG pO2 ABG HCO3 ABG O2 Saturation ABG Base Excess ABG Hemoglobin Oxyhemoglobin Sodium Potassium Chloride Carbon Dioxide BUN Creatinine Glucose POC Glucose 110 H 129 H 118 H Lactic Acid Calcium Phosphorus Magnesium AST ALT Alkaline Phosphatase Lactate Dehydrogenase Troponin T C-Reactive Protein NT-Pro-B Natriuret Pep Total Protein Albumin LDL Cholesterol Direct Vitamin B12 Fluid Glucose Fluid Total Protein Vancomycin Trough Crossmatch 01/09/22 01/10/22 01/10/22 18:13 00:27 04:00 WBC RBC Hgb Hct MCV MCH MCHC RDW Plt Count Seg Neuts % (Manual) Lymphocytes % (Manual) Seg Neutrophils # Man Lymphocytes # (Manual) Monocytes # (Manual) PT INR D-Dimer ABG pH ABG pO2 ABG HCO3 ABG O2 Saturation ABG Base Excess ABG Hemoglobin Oxyhemoglobin Sodium 133 L Potassium Chloride 92.6 L Carbon Dioxide 31 H BUN 29 H Creatinine 0.5 L Glucose 115 H POC Glucose 118 H 111 H Lactic Acid Calcium Phosphorus Magnesium AST ALT Alkaline Phosphatase Lactate Dehydrogenase Troponin T C-Reactive Protein NT-Pro-B Natriuret Pep Total Protein Albumin LDL Cholesterol Direct Vitamin B12 Fluid Glucose Fluid Total Protein Vancomycin Trough Crossmatch 01/10/22 01/11/22 01/11/22 05:47 05:10 11:14 WBC RBC Hgb Hct MCV MCH MCHC RDW Plt Count Seg Neuts % (Manual) Lymphocytes % (Manual) Seg Neutrophils # Man Lymphocytes # (Manual) Monocytes # (Manual) PT INR D-Dimer ABG pH ABG pO2 ABG HCO3 ABG O2 Saturation ABG Base Excess ABG Hemoglobin Oxyhemoglobin Sodium Potassium Chloride Carbon Dioxide BUN Creatinine Glucose POC Glucose 106 H 118 H 136 H Lactic Acid Calcium Phosphorus Magnesium AST ALT Alkaline Phosphatase Lactate Dehydrogenase Troponin T C-Reactive Protein NT-Pro-B Natriuret Pep Total Protein Albumin LDL Cholesterol Direct Vitamin B12 Fluid Glucose Fluid Total Protein Vancomycin Trough Crossmatch 01/11/22 01/11/22 01/12/22 17:14 23:52 05:39 WBC RBC Hgb Hct MCV MCH MCHC RDW Plt Count Seg Neuts % (Manual) Lymphocytes % (Manual) Seg Neutrophils # Man Lymphocytes # (Manual) Monocytes # (Manual) PT INR D-Dimer ABG pH ABG pO2 ABG HCO3 ABG O2 Saturation ABG Base Excess ABG Hemoglobin Oxyhemoglobin Sodium Potassium Chloride Carbon Dioxide BUN Creatinine Glucose POC Glucose 117 H 110 H 110 H Lactic Acid Calcium Phosphorus Magnesium AST ALT Alkaline Phosphatase Lactate Dehydrogenase Troponin T C-Reactive Protein NT-Pro-B Natriuret Pep Total Protein Albumin LDL Cholesterol Direct Vitamin B12 Fluid Glucose Fluid Total Protein Vancomycin Trough Crossmatch 01/13/22 01/13/22 01/14/22 11:15 17:21 05:33 WBC RBC Hgb Hct MCV MCH MCHC RDW Plt Count Seg Neuts % (Manual) Lymphocytes % (Manual) Seg Neutrophils # Man Lymphocytes # (Manual) Monocytes # (Manual) PT INR D-Dimer ABG pH ABG pO2 ABG HCO3 ABG O2 Saturation ABG Base Excess ABG Hemoglobin Oxyhemoglobin Sodium Potassium Chloride Carbon Dioxide BUN Creatinine Glucose POC Glucose 113 H 121 H 136 H Lactic Acid Calcium Phosphorus Magnesium AST ALT Alkaline Phosphatase Lactate Dehydrogenase Troponin T C-Reactive Protein NT-Pro-B Natriuret Pep Total Protein Albumin LDL Cholesterol Direct Vitamin B12 Fluid Glucose Fluid Total Protein Vancomycin Trough Crossmatch 01/14/22 01/15/22 01/15/22 11:28 00:13 05:24 WBC RBC Hgb Hct MCV MCH MCHC RDW Plt Count Seg Neuts % (Manual) Lymphocytes % (Manual) Seg Neutrophils # Man Lymphocytes # (Manual) Monocytes # (Manual) PT INR D-Dimer ABG pH ABG pO2 ABG HCO3 ABG O2 Saturation ABG Base Excess ABG Hemoglobin Oxyhemoglobin Sodium Potassium Chloride Carbon Dioxide BUN Creatinine Glucose POC Glucose 117 H 109 H 117 H Lactic Acid Calcium Phosphorus Magnesium AST ALT Alkaline Phosphatase Lactate Dehydrogenase Troponin T C-Reactive Protein NT-Pro-B Natriuret Pep Total Protein Albumin LDL Cholesterol Direct Vitamin B12 Fluid Glucose Fluid Total Protein Vancomycin Trough Crossmatch 01/15/22 01/15/22 01/15/22 11:38 14:36 17:05 WBC RBC 3.11 L Hgb 8.4 L Hct 25.7 L MCV MCH 27 L MCHC RDW 17.2 H Plt Count Seg Neuts % (Manual) 82.0 H Lymphocytes % (Manual) 11.0 L Seg Neutrophils # Man 8.8 H Lymphocytes # (Manual) Monocytes # (Manual) PT INR D-Dimer ABG pH ABG pO2 ABG HCO3 ABG O2 Saturation ABG Base Excess ABG Hemoglobin Oxyhemoglobin Sodium Potassium Chloride Carbon Dioxide BUN Creatinine Glucose POC Glucose 107 H 108 H Lactic Acid Calcium Phosphorus Magnesium AST ALT Alkaline Phosphatase Lactate Dehydrogenase Troponin T C-Reactive Protein NT-Pro-B Natriuret Pep Total Protein Albumin LDL Cholesterol Direct Vitamin B12 Fluid Glucose Fluid Total Protein Vancomycin Trough Crossmatch 01/15/22 01/15/22 01/15/22 21:07 Unknown Unknown WBC RBC 2.97 L Hgb 8.0 L Hct 24.3 L MCV MCH 27 L MCHC RDW 17.2 H Plt Count Seg Neuts % (Manual) Lymphocytes % (Manual) Seg Neutrophils # Man Lymphocytes # (Manual) Monocytes # (Manual) PT INR D-Dimer ABG pH ABG pO2 ABG HCO3 ABG O2 Saturation ABG Base Excess ABG Hemoglobin Oxyhemoglobin Sodium 131 L Potassium Chloride 93.1 L Carbon Dioxide BUN 27 H Creatinine Glucose 110 H POC Glucose Lactic Acid Calcium 8.3 L Phosphorus Magnesium AST ALT Alkaline Phosphatase Lactate Dehydrogenase Troponin T 0.088 H C-Reactive Protein NT-Pro-B Natriuret Pep Total Protein Albumin LDL Cholesterol Direct 44 L Vitamin B12 Fluid Glucose Fluid Total Protein Vancomycin Trough Crossmatch 01/15/22 01/16/22 01/16/22 Unknown 05:21 12:59 WBC RBC Hgb Hct MCV MCH MCHC RDW Plt Count Seg Neuts % (Manual) Lymphocytes % (Manual) Seg Neutrophils # Man Lymphocytes # (Manual) Monocytes # (Manual) PT INR D-Dimer ABG pH ABG pO2 ABG HCO3 ABG O2 Saturation ABG Base Excess ABG Hemoglobin Oxyhemoglobin Sodium 134 L 134 L Potassium 3.4 L Chloride 93.9 L 95.4 L Carbon Dioxide BUN 26 H 24 H Creatinine Glucose 168 H POC Glucose 159 H Lactic Acid Calcium 8.1 L Phosphorus Magnesium AST ALT Alkaline Phosphatase Lactate Dehydrogenase Troponin T 0.078 H C-Reactive Protein NT-Pro-B Natriuret Pep Total Protein Albumin LDL Cholesterol Direct Vitamin B12 Fluid Glucose Fluid Total Protein Vancomycin Trough Crossmatch 01/16/22 01/17/22 01/17/22 23:22 05:20 14:24 WBC RBC Hgb Hct MCV MCH MCHC RDW Plt Count Seg Neuts % (Manual) Lymphocytes % (Manual) Seg Neutrophils # Man Lymphocytes # (Manual) Monocytes # (Manual) PT INR D-Dimer ABG pH ABG pO2 55.0 L ABG HCO3 29.5 H ABG O2 Saturation 87.8 L ABG Base Excess 4.5 H ABG Hemoglobin 9.3 L Oxyhemoglobin 86.1 L Sodium Potassium Chloride Carbon Dioxide BUN Creatinine Glucose POC Glucose 113 H 111 H Lactic Acid Calcium Phosphorus Magnesium AST ALT Alkaline Phosphatase Lactate Dehydrogenase Troponin T C-Reactive Protein NT-Pro-B Natriuret Pep Total Protein Albumin LDL Cholesterol Direct Vitamin B12 Fluid Glucose Fluid Total Protein Vancomycin Trough Crossmatch 01/17/22 01/18/22 01/18/22 17:14 05:39 11:53 WBC RBC Hgb Hct MCV MCH MCHC RDW Plt Count Seg Neuts % (Manual) Lymphocytes % (Manual) Seg Neutrophils # Man Lymphocytes # (Manual) Monocytes # (Manual) PT INR D-Dimer ABG pH ABG pO2 ABG HCO3 ABG O2 Saturation ABG Base Excess ABG Hemoglobin Oxyhemoglobin Sodium Potassium Chloride Carbon Dioxide BUN Creatinine Glucose POC Glucose 126 H 108 H 113 H Lactic Acid Calcium Phosphorus Magnesium AST ALT Alkaline Phosphatase Lactate Dehydrogenase Troponin T C-Reactive Protein NT-Pro-B Natriuret Pep Total Protein Albumin LDL Cholesterol Direct Vitamin B12 Fluid Glucose Fluid Total Protein Vancomycin Trough Crossmatch 01/18/22 01/19/22 01/19/22 12:50 00:04 04:50 WBC RBC 3.14 L Hgb 8.4 L Hct 26.0 L MCV MCH 27 L MCHC RDW 18.2 H Plt Count Seg Neuts % (Manual) Lymphocytes % (Manual) Seg Neutrophils # Man Lymphocytes # (Manual) Monocytes # (Manual) PT INR D-Dimer ABG pH ABG pO2 112.3 H ABG HCO3 30.9 H ABG O2 Saturation ABG Base Excess 5.8 H ABG Hemoglobin 8.8 L Oxyhemoglobin Sodium Potassium Chloride Carbon Dioxide BUN Creatinine Glucose POC Glucose 115 H Lactic Acid Calcium Phosphorus Magnesium AST ALT Alkaline Phosphatase Lactate Dehydrogenase Troponin T C-Reactive Protein NT-Pro-B Natriuret Pep Total Protein Albumin LDL Cholesterol Direct Vitamin B12 Fluid Glucose Fluid Total Protein Vancomycin Trough Crossmatch 01/19/22 01/19/22 01/19/22 04:50 11:51 20:45 WBC RBC Hgb Hct MCV MCH MCHC RDW Plt Count Seg Neuts % (Manual) Lymphocytes % (Manual) Seg Neutrophils # Man Lymphocytes # (Manual) Monocytes # (Manual) PT INR D-Dimer ABG pH ABG pO2 95.2 H ABG HCO3 29.8 H ABG O2 Saturation ABG Base Excess 4.3 H ABG Hemoglobin 8.0 L Oxyhemoglobin Sodium 134 L Potassium Chloride 95.4 L Carbon Dioxide BUN 28 H Creatinine Glucose POC Glucose 111 H Lactic Acid Calcium Phosphorus Magnesium AST ALT Alkaline Phosphatase Lactate Dehydrogenase Troponin T C-Reactive Protein NT-Pro-B Natriuret Pep Total Protein Albumin LDL Cholesterol Direct Vitamin B12 Fluid Glucose Fluid Total Protein Vancomycin Trough Crossmatch 01/20/22 11:43 WBC RBC Hgb Hct MCV MCH MCHC RDW Plt Count Seg Neuts % (Manual) Lymphocytes % (Manual) Seg Neutrophils # Man Lymphocytes # (Manual) Monocytes # (Manual) PT INR D-Dimer ABG pH ABG pO2 ABG HCO3 ABG O2 Saturation ABG Base Excess ABG Hemoglobin Oxyhemoglobin Sodium Potassium Chloride Carbon Dioxide BUN Creatinine Glucose POC Glucose 118 H Lactic Acid Calcium Phosphorus Magnesium AST ALT Alkaline Phosphatase Lactate Dehydrogenase Troponin T C-Reactive Protein NT-Pro-B Natriuret Pep Total Protein Albumin LDL Cholesterol Direct Vitamin B12 Fluid Glucose Fluid Total Protein Vancomycin Trough Crossmatch Allied health notes reviewed: nursing
[2022-01-20] MEDS ORDERED: SODIUM CHLORIDE 0.9% 250ML 250 ML IV ONE (16:00)
[2022-01-20] MEDS ORDERED: MIDODRINE 5 MG TAB PO NR (16:00)
[2022-01-20] MEDS: traZODone 50 MG TAB PO SCH (21:01)
[2022-01-20] MEDS: MELATONIN 5 MG TAB PO SCH (21:01)
[2022-01-20] MEDS: PRAVASTATIN 20 MG TAB FEEDTUBE SCH (22:00)
[2022-01-20] MEDS: ONDANSETRON 4 MG/2 ML INJ IV PRN (22:10)
[2022-01-21] MEDS: SUCRALFATE 1 GM/10 ML ORAL LIQD FEEDTUBE SCH ×4 (00:42→17:31)
--- NOTE | 2022-01-21 03:03 | XRay Report ---
CHEST 1 VIEW 01/21/2022 2:36 AM INDICATION / CLINICAL INFORMATION: pleural effusion. COMPARISON: 01/19/2022 FINDINGS: SUPPORT DEVICES: Stable, satisfactory device positioning. HEART / MEDIASTINUM: Improved cardiomegaly. LUNGS / PLEURA: Mildly improved pulmonary edema and bilateral pleural effusions. No pneumothorax. ADDITIONAL FINDINGS: No significant additional findings. IMPRESSION: 1. Mild improvement Signer Name: Ramana Grissom MD Signed: 01/21/2022 2:58 AM Workstation Name: [email or web address]
[2022-01-21] MEDS: LANSOPRAZOLE 30 MG SOLUTAB FEEDTUBE SCH ×3 (07:34→21:47)
[2022-01-21] MEDS: HYDROcodone/ACETAMINOPHEN 10-325MG TAB FEEDTUBE SCH ×3 (08:15→21:00)
[2022-01-21] MEDS: ALPRAZolam 0.25 MG TAB FEEDTUBE PRN ×2 (08:16→20:50)
[2022-01-21] MEDS: LEVOTHYROXINE 125 MCG TAB FEEDTUBE SCH (08:16)
[2022-01-21] MEDS: MIDODRINE 5 MG TAB FEEDTUBE SCH ×3 (08:16→16:26)
[2022-01-21] MEDS: busPIRone 5 MG TAB FEEDTUBE SCH ×2 (10:32→21:40)
[2022-01-21] MEDS: QUEtiapine 25 MG TAB FEEDTUBE SCH ×2 (10:32→21:44)
[2022-01-21] MEDS: SPIRONOLACTONE 25 MG TAB FEEDTUBE SCH (10:32)
[2022-01-21] MEDS: FUROSEMIDE 20 MG TAB PO SCH (10:32)
[2022-01-21] MEDS: GABAPENTIN 100 MG CAP FEEDTUBE SCH (10:32)
[2022-01-21] MEDS: METOPROLOL TARTRATE 25 MG TAB FEEDTUBE SCH ×2 (10:33→21:20)
[2022-01-21] MEDS: SENNOSIDES ORAL LIQD 8.8 MG/5 ML ORAL LIQD FEEDTUBE SCH (10:34)
[2022-01-21] MEDS: POLYETHYLENE GLYCOL 3350 17 GM POWDER FEEDTUBE SCH (10:34)
[2022-01-21] MEDS: DOCUSATE SODIUM 100 MG/10 ML ORAL LIQD FEEDTUBE SCH ×2 (10:34→21:45)
--- NOTE | 2022-01-21 11:21 | Progress Note ---
Assessment and Plan Gram positive Bacteremia (MRSA) Acute respiratory failure with hypoxia, now on MVS Acute microcytic anemia Bilateral pneumonia DVT Left pleural effusion Cardiomyopathy EF 30-35% Moderate pulmonary HTN - care plan discussed with barbara at bedside - to receive Midodrine dose now - 250 mls IVNS bolus if MAP remains < 65 mmHg - RT to resume t-piece trials in am - rest on full MVS overnight for now - keep chest tube to continuous suction in short term (drained 1.8 liters since insertion) - no new issues otherwise, continue care as below; - continue thyroid replacement therapy with Levoxyl - continue Lasix 20 mg p.o. daily - follow I's & O's and monitor electrolytes - continue daily SAT and SBT assessment as tolerated - continue Seroquel - continue Vancomycin for MRSA bacteremia (6 weeks of therapy recommended) - prn Levophed for target MAP > 65 mmHg - continue to wean supplemental oxygen for target O2 sat's > 90% acutely - VAP bundle addressed - continue lung protective strategies - continue bronchodilators with routine trach care and pulmonary hygiene per RT - wean per pulmonary driven protocols otherwise - avoid nephrotoxins, renally dose all medications - continue accuchecks with glycemic control per SSI (While critically ill target blood glucose of 140-180 mg/dL; avoid hypoglycemia) - sedation prn for target RASS 0 to -1 - antibiotics per ID recommendations - continue to avoid benzodiazepine's, reduce the possibility of delirium - prn analgesia per CPOT score - Maintenance of sleep-wake cycle, avoid delirium - continue enteral nutritional support at goal rate as tolerated - G.I. & VTE prophylaxis - PT/OT/ROM exercises - continue mobility protocols for pressure ulcer prophylaxis - Monitor hemodynamics closely - continue other care per attending / other consultants - discharge planning ongoing concurrently COVID SPECIFIC INTERVENTIONS - COVID-19 PCR negative .... Re-evaluate in am & prn CONDITION: CRITICAL PROGNOSIS: GUARDED CODE STATUS: FULL CODE The high probability of a clinically significant, sudden or life-threatening deterioration of the [respiratory, cardiovascular & neurologic] system(s) required my full and direct attention, intervention and personal management. The aggregate critical care time was [34] minutes without overlap. Time includes spent on; [x] Data Review and interpretation [x] Patient assessment and monitoring of vital signs [x] Documentation [x] Medication orders and management Subjective Date of service: 01/21/22 Principal diagnosis: Septic shock; AHRF; Anemia; Pneumonia; pleural effusion; HFrEF; Pulm HTN Interval history: Patient is seen today for: Septic shock; Acute hypoxemic respiratory failure; Anemia; Bilateral pneumonia; Left pleural effusion; HFrEF 30-35%; Pulm HTN RVSP 49 Seen and examined at bedside; 24hour events reviewed; nursing and respiratory care staff consulted; no adverse overnight events reported to me; resting in bed; Objective Vital Signs - 12hr 01/20/22 01/20/22 01/21/22 23:52 23:59 00:00 Temperature 97.2 F L Pulse Rate 60 60 Pulse Rate [ 60 From Monitor] Respiratory 10 L Rate Blood Pressure 104/41 94/38 O2 Sat by Pulse 100 100 Oximetry O2 Sat by Pulse 100 Oximetry [ Assessment] 01/21/22 01/21/22 01/21/22 01:00 02:00 03:00 Temperature Pulse Rate 60 60 60 Pulse Rate [ From Monitor] Respiratory 10 L 14 12 Rate Blood Pressure 102/45 103/44 109/48 O2 Sat by Pulse 100 100 100 Oximetry O2 Sat by Pulse Oximetry [ Assessment] 01/21/22 01/21/22 01/21/22 04:00 04:32 05:00 Temperature 96.8 F L Pulse Rate 60 63 60 Pulse Rate [ 60 From Monitor] Respiratory 11 L 12 Rate Blood Pressure 98/41 118/53 102/46 O2 Sat by Pulse 100 100 100 Oximetry O2 Sat by Pulse Oximetry [ Assessment] 01/21/22 01/21/22 01/21/22 06:00 07:00 08:00 Temperature 97.5 F L Pulse Rate 75 60 65 Pulse Rate [ 60 From Monitor] Respiratory 14 12 15 Rate Blood Pressure 101/43 109/46 117/53 O2 Sat by Pulse 100 100 100 Oximetry O2 Sat by Pulse 100 Oximetry [ Assessment] 01/21/22 01/21/22 01/21/22 08:42 09:00 10:00 Temperature Pulse Rate 60 60 Pulse Rate [ From Monitor] Respiratory 20 18 Rate Blood Pressure 119/56 120/39 O2 Sat by Pulse 100 100 100 Oximetry O2 Sat by Pulse Oximetry [ Assessment] 01/21/22 01/21/22 10:32 10:33 Temperature Pulse Rate 60 60 Pulse Rate [ From Monitor] Respiratory Rate Blood Pressure O2 Sat by Pulse Oximetry O2 Sat by Pulse Oximetry [ Assessment] Constitutional: no acute distress, alert, other (Resting on T tube, FIO2 35%) Eyes: non-icteric ENT: oropharynx moist, other (+ Midline tracheostomy with minimal secretions) Neck: supple, no lymphadenopathy, no JVD Effort: mildly labored Ascultation: Bilateral: diminished breath sounds, rhonchi, other (Right chest tube) Percussion: Right: not dull, Left: dull (bases) Cardiovascular: regular rate and rhythm, other (S1,S2) Gastrointestinal: normoactive bowel sounds, soft, non-tender, non-distended (protuberant) Integumentary: normal Extremities: no cyanosis, pink and warm, pulses normal, edema (upper etremities), anasarca Neurologic: non-focal exam (grossly), pupils equal and round, CN II-XII normal Psychiatric: mood appropriate, anxious CBC and BMP: 01/19/22 04:50 01/19/22 04:50 ABG, PT/INR, D-dimer: ABG ABG pH 7.390 pH Units (7.350-7.450) 01/19/22 20:45 ABG pCO2 50.4 mm Hg 01/19/22 20:45 ABG pO2 95.2 mm Hg (80.0-90.0) H 01/19/22 20:45 ABG O2 Saturation 97.3 % (95.0-99.0) 01/19/22 20:45 PT/INR, D-dimer PT 16.9 Sec. (12.2-14.9) H 01/06/22 04:06 INR 1.23 (0.87-1.13) H 01/06/22 04:06 D-Dimer 2655.00 ng/mlDDU (0-234) H 11/11/21 04:28 Abnormal lab findings: Abnormal Labs 11/03/21 11/03/21 11/03/21 22:32 22:32 22:32 WBC 29.3 H RBC 2.93 L Hgb 6.1 L Hct 21.9 L MCV 75 L MCH 21 L MCHC 28 L RDW 19.7 H Plt Count Seg Neuts % (Manual) 97.0 H Lymphocytes % (Manual) 3.0 L Seg Neutrophils # Man 28.4 H Lymphocytes # (Manual) 0.9 L Monocytes # (Manual) PT 18.6 H INR 1.40 H D-Dimer ABG pH ABG pO2 ABG HCO3 ABG O2 Saturation ABG Base Excess ABG Hemoglobin Oxyhemoglobin Sodium Potassium Chloride Carbon Dioxide 20 L BUN 33 H Creatinine Glucose 119 H POC Glucose Lactic Acid Calcium 8.3 L Phosphorus Magnesium AST ALT Alkaline Phosphatase Lactate Dehydrogenase Troponin T 0.035 H C-Reactive Protein NT-Pro-B Natriuret Pep Total Protein Albumin LDL Cholesterol Direct 34 L Vitamin B12 Fluid Glucose Fluid Total Protein Vancomycin Trough Crossmatch 11/03/21 11/03/21 11/03/21 22:32 22:32 23:57 WBC RBC Hgb Hct MCV MCH MCHC RDW Plt Count Seg Neuts % (Manual) Lymphocytes % (Manual) Seg Neutrophils # Man Lymphocytes # (Manual) Monocytes # (Manual) PT INR D-Dimer ABG pH ABG pO2 ABG HCO3 ABG O2 Saturation ABG Base Excess ABG Hemoglobin Oxyhemoglobin Sodium Potassium Chloride Carbon Dioxide BUN Creatinine Glucose POC Glucose Lactic Acid 3.70 H* Calcium Phosphorus Magnesium AST ALT Alkaline Phosphatase 139 H Lactate Dehydrogenase Troponin T C-Reactive Protein NT-Pro-B Natriuret Pep 7895 H Total Protein Albumin 3.5 L LDL Cholesterol Direct Vitamin B12 Fluid Glucose Fluid Total Protein Vancomycin Trough Crossmatch See Detail 11/04/21 11/04/21 11/05/21 00:59 13:58 00:51 WBC 27.9 H RBC 3.28 L Hgb 7.3 L Hct 25.5 L MCV 78 L MCH 22 L MCHC 29 L RDW 19.1 H Plt Count Seg Neuts % (Manual) 96.0 H Lymphocytes % (Manual) 2.0 L Seg Neutrophils # Man 26.8 H Lymphocytes # (Manual) 0.6 L Monocytes # (Manual) PT INR D-Dimer ABG pH ABG pO2 ABG HCO3 ABG O2 Saturation ABG Base Excess ABG Hemoglobin Oxyhemoglobin Sodium Potassium Chloride Carbon Dioxide BUN Creatinine Glucose POC Glucose Lactic Acid Calcium Phosphorus Magnesium AST ALT Alkaline Phosphatase Lactate Dehydrogenase Troponin T 0.051 H D 0.032 H D C-Reactive Protein NT-Pro-B Natriuret Pep Total Protein Albumin LDL Cholesterol Direct Vitamin B12 Fluid Glucose Fluid Total Protein Vancomycin Trough Crossmatch 11/05/21 11/05/21 11/05/21 06:11 06:11 06:11 WBC 31.8 H RBC 3.57 L Hgb 8.0 L Hct 27.7 L MCV 78 L MCH 22 L MCHC 29 L RDW 19.2 H Plt Count Seg Neuts % (Manual) 91.0 H Lymphocytes % (Manual) 4.5 L Seg Neutrophils # Man 28.9 H Lymphocytes # (Manual) Monocytes # (Manual) 1.1 H PT INR D-Dimer 1494.53 H ABG pH ABG pO2 ABG HCO3 ABG O2 Saturation ABG Base Excess ABG Hemoglobin Oxyhemoglobin Sodium Potassium Chloride Carbon Dioxide 19 L BUN 42 H Creatinine Glucose 115 H POC Glucose Lactic Acid Calcium Phosphorus Magnesium AST 43 H ALT Alkaline Phosphatase Lactate Dehydrogenase 187 H Troponin T C-Reactive Protein 22.20 H NT-Pro-B Natriuret Pep Total Protein 6.0 L Albumin 3.2 L LDL Cholesterol Direct Vitamin B12 Fluid Glucose Fluid Total Protein Vancomycin Trough Crossmatch 11/05/21 11/05/21 11/06/21 06:11 12:15 00:30 WBC RBC Hgb Hct MCV MCH MCHC RDW Plt Count Seg Neuts % (Manual) Lymphocytes % (Manual) Seg Neutrophils # Man Lymphocytes # (Manual) Monocytes # (Manual) PT INR D-Dimer ABG pH ABG pO2 ABG HCO3 ABG O2 Saturation ABG Base Excess ABG Hemoglobin Oxyhemoglobin Sodium Potassium Chloride Carbon Dioxide BUN Creatinine Glucose POC Glucose 113 H 69 L Lactic Acid Calcium Phosphorus Magnesium AST ALT Alkaline Phosphatase Lactate Dehydrogenase Troponin T 0.033 H C-Reactive Protein NT-Pro-B Natriuret Pep Total Protein Albumin LDL Cholesterol Direct Vitamin B12 Fluid Glucose Fluid Total Protein Vancomycin Trough Crossmatch 11/06/21 11/06/21 11/06/21 05:50 15:50 15:50 WBC 25.5 H RBC 3.62 L Hgb 8.0 L Hct 27.5 L MCV 76 L MCH 22 L MCHC 29 L RDW 19.6 H Plt Count Seg Neuts % (Manual) 92.0 H Lymphocytes % (Manual) 5.0 L Seg Neutrophils # Man 23.5 H Lymphocytes # (Manual) Monocytes # (Manual) PT INR D-Dimer ABG pH 7.305 L ABG pO2 ABG HCO3 15.8 L ABG O2 Saturation ABG Base Excess -9.6 L ABG Hemoglobin 8.6 L Oxyhemoglobin 94.6 L Sodium Potassium Chloride 113.9 H Carbon Dioxide 17 L BUN 56 H Creatinine Glucose 114 H POC Glucose Lactic Acid Calcium 7.9 L Phosphorus Magnesium AST 1410 H ALT 934 H Alkaline Phosphatase 142 H Lactate Dehydrogenase Troponin T C-Reactive Protein NT-Pro-B Natriuret Pep Total Protein 5.0 L Albumin 2.6 L LDL Cholesterol Direct Vitamin B12 Fluid Glucose Fluid Total Protein Vancomycin Trough Crossmatch 11/07/21 11/07/21 11/07/21 03:30 04:50 08:07 WBC RBC Hgb Hct MCV MCH MCHC RDW Plt Count Seg Neuts % (Manual) Lymphocytes % (Manual) Seg Neutrophils # Man Lymphocytes # (Manual) Monocytes # (Manual) PT INR D-Dimer ABG pH ABG pO2 296.9 H ABG HCO3 18.1 L ABG O2 Saturation 99.5 H ABG Base Excess -5.9 L ABG Hemoglobin 7.6 L Oxyhemoglobin Sodium Potassium Chloride Carbon Dioxide BUN Creatinine Glucose POC Glucose 106 H 108 H Lactic Acid Calcium Phosphorus Magnesium AST ALT Alkaline Phosphatase Lactate Dehydrogenase Troponin T C-Reactive Protein NT-Pro-B Natriuret Pep Total Protein Albumin LDL Cholesterol Direct Vitamin B12 Fluid Glucose Fluid Total Protein Vancomycin Trough Crossmatch 11/08/21 11/08/21 11/08/21 03:10 18:05 23:43 WBC RBC Hgb Hct MCV MCH MCHC RDW Plt Count Seg Neuts % (Manual) Lymphocytes % (Manual) Seg Neutrophils # Man Lymphocytes # (Manual) Monocytes # (Manual) PT INR D-Dimer ABG pH ABG pO2 127.4 H ABG HCO3 ABG O2 Saturation ABG Base Excess -3.4 L ABG Hemoglobin 7.4 L Oxyhemoglobin Sodium Potassium Chloride Carbon Dioxide BUN Creatinine Glucose POC Glucose 113 H 141 H Lactic Acid Calcium Phosphorus Magnesium AST ALT Alkaline Phosphatase Lactate Dehydrogenase Troponin T C-Reactive Protein NT-Pro-B Natriuret Pep Total Protein Albumin LDL Cholesterol Direct Vitamin B12 Fluid Glucose Fluid Total Protein Vancomycin Trough Crossmatch 11/08/21 11/08/21 11/09/21 Unknown Unknown 02:00 WBC 14.5 H RBC 3.35 L Hgb 7.5 L 8.1 L Hct 25.4 L 27.6 L MCV 76 L 76 L MCH 23 L 22 L MCHC RDW 19.9 H 19.9 H Plt Count Seg Neuts % (Manual) Lymphocytes % (Manual) Seg Neutrophils # Man Lymphocytes # (Manual) Monocytes # (Manual) PT INR D-Dimer ABG pH ABG pO2 ABG HCO3 ABG O2 Saturation ABG Base Excess ABG Hemoglobin Oxyhemoglobin Sodium 154 H D Potassium 3.3 L Chloride 120.7 H Carbon Dioxide 20 L BUN 38 H Creatinine Glucose POC Glucose Lactic Acid Calcium 8.3 L Phosphorus Magnesium AST ALT Alkaline Phosphatase Lactate Dehydrogenase Troponin T C-Reactive Protein NT-Pro-B Natriuret Pep Total Protein Albumin LDL Cholesterol Direct Vitamin B12 Fluid Glucose Fluid Total Protein Vancomycin Trough Crossmatch 11/09/21 11/09/21 11/09/21 02:00 02:31 05:12 WBC RBC Hgb Hct MCV MCH MCHC RDW Plt Count Seg Neuts % (Manual) Lymphocytes % (Manual) Seg Neutrophils # Man Lymphocytes # (Manual) Monocytes # (Manual) PT INR D-Dimer ABG pH 7.479 H ABG pO2 121.3 H ABG HCO3 ABG O2 Saturation ABG Base Excess ABG Hemoglobin 7.3 L Oxyhemoglobin Sodium Potassium Chloride 112.5 H Carbon Dioxide BUN 33 H Creatinine Glucose 161 H POC Glucose 135 H Lactic Acid Calcium Phosphorus Magnesium AST 251 H ALT 481 H Alkaline Phosphatase Lactate Dehydrogenase Troponin T C-Reactive Protein NT-Pro-B Natriuret Pep Total Protein 5.0 L Albumin 2.8 L LDL Cholesterol Direct Vitamin B12 Fluid Glucose Fluid Total Protein Vancomycin Trough Crossmatch 11/09/21 11/09/21 11/09/21 11:33 16:32 23:28 WBC RBC Hgb Hct MCV MCH MCHC RDW Plt Count Seg Neuts % (Manual) Lymphocytes % (Manual) Seg Neutrophils # Man Lymphocytes # (Manual) Monocytes # (Manual) PT INR D-Dimer ABG pH ABG pO2 ABG HCO3 ABG O2 Saturation ABG Base Excess ABG Hemoglobin Oxyhemoglobin Sodium Potassium Chloride Carbon Dioxide BUN Creatinine Glucose POC Glucose 132 H 133 H 143 H Lactic Acid Calcium Phosphorus Magnesium AST ALT Alkaline Phosphatase Lactate Dehydrogenase Troponin T C-Reactive Protein NT-Pro-B Natriuret Pep Total Protein Albumin LDL Cholesterol Direct Vitamin B12 Fluid Glucose Fluid Total Protein Vancomycin Trough Crossmatch 11/10/21 11/10/21 11/10/21 04:00 04:00 05:35 WBC 16.0 H RBC 3.61 L Hgb 8.0 L Hct 27.1 L MCV 75 L MCH 22 L MCHC RDW 20.4 H Plt Count Seg Neuts % (Manual) Lymphocytes % (Manual) Seg Neutrophils # Man Lymphocytes # (Manual) Monocytes # (Manual) PT INR D-Dimer ABG pH ABG pO2 ABG HCO3 ABG O2 Saturation ABG Base Excess ABG Hemoglobin Oxyhemoglobin Sodium 149 H Potassium Chloride 114.1 H Carbon Dioxide BUN 31 H Creatinine Glucose 148 H POC Glucose 132 H Lactic Acid Calcium 8.2 L Phosphorus Magnesium AST ALT Alkaline Phosphatase Lactate Dehydrogenase Troponin T C-Reactive Protein NT-Pro-B Natriuret Pep Total Protein Albumin LDL Cholesterol Direct Vitamin B12 Fluid Glucose Fluid Total Protein Vancomycin Trough Crossmatch 11/10/21 11/10/21 11/10/21 11:31 14:08 15:35 WBC RBC Hgb Hct MCV MCH MCHC RDW Plt Count Seg Neuts % (Manual) Lymphocytes % (Manual) Seg Neutrophils # Man Lymphocytes # (Manual) Monocytes # (Manual) PT INR D-Dimer ABG pH ABG pO2 126.6 H ABG HCO3 ABG O2 Saturation ABG Base Excess ABG Hemoglobin 7.4 L Oxyhemoglobin Sodium Potassium Chloride Carbon Dioxide BUN Creatinine Glucose POC Glucose 147 H Lactic Acid Calcium Phosphorus Magnesium AST ALT Alkaline Phosphatase Lactate Dehydrogenase Troponin T C-Reactive Protein NT-Pro-B Natriuret Pep Total Protein Albumin LDL Cholesterol Direct Vitamin B12 1823 H Fluid Glucose Fluid Total Protein Vancomycin Trough Crossmatch 11/10/21 11/11/21 11/11/21 17:53 00:55 04:28 WBC RBC Hgb Hct MCV MCH MCHC RDW Plt Count Seg Neuts % (Manual) Lymphocytes % (Manual) Seg Neutrophils # Man Lymphocytes # (Manual) Monocytes # (Manual) PT INR D-Dimer ABG pH ABG pO2 ABG HCO3 ABG O2 Saturation ABG Base Excess ABG Hemoglobin Oxyhemoglobin Sodium 149 H Potassium Chloride 112.2 H Carbon Dioxide BUN 34 H Creatinine Glucose 148 H POC Glucose 140 H 145 H Lactic Acid Calcium 7.9 L Phosphorus Magnesium AST 53 H ALT 203 H Alkaline Phosphatase Lactate Dehydrogenase Troponin T C-Reactive Protein NT-Pro-B Natriuret Pep Total Protein 4.9 L Albumin 2.6 L LDL Cholesterol Direct Vitamin B12 Fluid Glucose Fluid Total Protein Vancomycin Trough Crossmatch 11/11/21 11/11/21 11/11/21 04:28 04:28 05:28 WBC 20.9 H RBC 3.47 L Hgb 7.5 L Hct 26.0 L MCV 75 L MCH 22 L MCHC 29 L RDW 21.6 H Plt Count 132 L Seg Neuts % (Manual) Lymphocytes % (Manual) Seg Neutrophils # Man Lymphocytes # (Manual) Monocytes # (Manual) PT INR D-Dimer 2655.00 H ABG pH ABG pO2 ABG HCO3 ABG O2 Saturation ABG Base Excess ABG Hemoglobin Oxyhemoglobin Sodium Potassium Chloride Carbon Dioxide BUN Creatinine Glucose POC Glucose 154 H Lactic Acid Calcium Phosphorus Magnesium AST ALT Alkaline Phosphatase Lactate Dehydrogenase Troponin T C-Reactive Protein NT-Pro-B Natriuret Pep Total Protein Albumin LDL Cholesterol Direct Vitamin B12 Fluid Glucose Fluid Total Protein Vancomycin Trough Crossmatch 11/11/21 11/11/21 11/12/21 12:38 18:13 00:14 WBC RBC Hgb Hct MCV MCH MCHC RDW Plt Count Seg Neuts % (Manual) Lymphocytes % (Manual) Seg Neutrophils # Man Lymphocytes # (Manual) Monocytes # (Manual) PT INR D-Dimer ABG pH ABG pO2 ABG HCO3 ABG O2 Saturation ABG Base Excess ABG Hemoglobin Oxyhemoglobin Sodium Potassium Chloride Carbon Dioxide BUN Creatinine Glucose POC Glucose 137 H 108 H 137 H Lactic Acid Calcium Phosphorus Magnesium AST ALT Alkaline Phosphatase Lactate Dehydrogenase Troponin T C-Reactive Protein NT-Pro-B Natriuret Pep Total Protein Albumin LDL Cholesterol Direct Vitamin B12 Fluid Glucose Fluid Total Protein Vancomycin Trough Crossmatch 11/12/21 11/12/21 11/12/21 05:40 06:24 11:12 WBC RBC Hgb Hct MCV MCH MCHC RDW Plt Count Seg Neuts % (Manual) Lymphocytes % (Manual) Seg Neutrophils # Man Lymphocytes # (Manual) Monocytes # (Manual) PT INR D-Dimer ABG pH 7.586 H ABG pO2 150.6 H ABG HCO3 27.2 H ABG O2 Saturation 99.1 H ABG Base Excess 5.2 H ABG Hemoglobin 7.5 L Oxyhemoglobin Sodium Potassium Chloride Carbon Dioxide BUN Creatinine Glucose POC Glucose 132 H 140 H Lactic Acid Calcium Phosphorus Magnesium AST ALT Alkaline Phosphatase Lactate Dehydrogenase Troponin T C-Reactive Protein NT-Pro-B Natriuret Pep Total Protein Albumin LDL Cholesterol Direct Vitamin B12 Fluid Glucose Fluid Total Protein Vancomycin Trough Crossmatch 11/12/21 11/12/21 11/12/21 14:50 14:50 17:13 WBC 19.8 H RBC 3.27 L Hgb 7.1 L Hct 24.5 L MCV 75 L MCH 22 L MCHC 29 L RDW 22.3 H Plt Count Seg Neuts % (Manual) Lymphocytes % (Manual) Seg Neutrophils # Man Lymphocytes # (Manual) Monocytes # (Manual) PT INR D-Dimer ABG pH ABG pO2 ABG HCO3 ABG O2 Saturation ABG Base Excess ABG Hemoglobin Oxyhemoglobin Sodium 150 H Potassium 3.3 L Chloride 112.0 H Carbon Dioxide BUN 40 H Creatinine Glucose 151 H POC Glucose 121 H Lactic Acid Calcium 7.4 L Phosphorus 1.70 L Magnesium 1.40 L AST ALT Alkaline Phosphatase Lactate Dehydrogenase Troponin T C-Reactive Protein NT-Pro-B Natriuret Pep Total Protein Albumin LDL Cholesterol Direct Vitamin B12 Fluid Glucose Fluid Total Protein Vancomycin Trough Crossmatch 11/12/21 11/13/21 11/13/21 23:19 05:34 06:30 WBC RBC Hgb Hct MCV MCH MCHC RDW Plt Count Seg Neuts % (Manual) Lymphocytes % (Manual) Seg Neutrophils # Man Lymphocytes # (Manual) Monocytes # (Manual) PT INR D-Dimer ABG pH ABG pO2 ABG HCO3 ABG O2 Saturation ABG Base Excess ABG Hemoglobin Oxyhemoglobin Sodium 149 H Potassium Chloride 60.0 L Carbon Dioxide BUN 40 H Creatinine Glucose 146 H POC Glucose 113 H 132 H Lactic Acid Calcium 7.3 L Phosphorus Magnesium 2.40 H AST ALT 72 H Alkaline Phosphatase Lactate Dehydrogenase Troponin T C-Reactive Protein NT-Pro-B Natriuret Pep Total Protein 5.2 L Albumin 2.2 L LDL Cholesterol Direct Vitamin B12 Fluid Glucose Fluid Total Protein Vancomycin Trough Crossmatch 11/13/21 11/13/21 11/13/21 06:30 08:30 11:19 WBC 21.2 H RBC 3.12 L Hgb 6.8 L Hct 23.2 L MCV 74 L MCH 22 L MCHC 29 L RDW 22.2 H Plt Count 135 L Seg Neuts % (Manual) Lymphocytes % (Manual) Seg Neutrophils # Man Lymphocytes # (Manual) Monocytes # (Manual) PT INR D-Dimer ABG pH ABG pO2 ABG HCO3 ABG O2 Saturation ABG Base Excess ABG Hemoglobin Oxyhemoglobin Sodium Potassium Chloride Carbon Dioxide BUN Creatinine Glucose POC Glucose 136 H Lactic Acid Calcium Phosphorus Magnesium AST ALT Alkaline Phosphatase Lactate Dehydrogenase Troponin T C-Reactive Protein NT-Pro-B Natriuret Pep Total Protein Albumin LDL Cholesterol Direct Vitamin B12 Fluid Glucose Fluid Total Protein Vancomycin Trough Crossmatch See Detail 11/13/21 11/14/21 11/14/21 18:21 00:01 04:46 WBC 20.0 H RBC 3.41 L Hgb 7.9 L Hct 26.8 L MCV MCH 23 L MCHC 29 L RDW 24.0 H Plt Count Seg Neuts % (Manual) Lymphocytes % (Manual) Seg Neutrophils # Man Lymphocytes # (Manual) Monocytes # (Manual) PT INR D-Dimer ABG pH ABG pO2 ABG HCO3 ABG O2 Saturation ABG Base Excess ABG Hemoglobin Oxyhemoglobin Sodium Potassium Chloride Carbon Dioxide BUN Creatinine Glucose POC Glucose 149 H 141 H Lactic Acid Calcium Phosphorus Magnesium AST ALT Alkaline Phosphatase Lactate Dehydrogenase Troponin T C-Reactive Protein NT-Pro-B Natriuret Pep Total Protein Albumin LDL Cholesterol Direct Vitamin B12 Fluid Glucose Fluid Total Protein Vancomycin Trough Crossmatch 11/14/21 11/14/21 11/14/21 04:46 05:10 11:10 WBC RBC Hgb Hct MCV MCH MCHC RDW Plt Count Seg Neuts % (Manual) Lymphocytes % (Manual) Seg Neutrophils # Man Lymphocytes # (Manual) Monocytes # (Manual) PT INR D-Dimer ABG pH ABG pO2 ABG HCO3 ABG O2 Saturation ABG Base Excess ABG Hemoglobin Oxyhemoglobin Sodium 148 H Potassium Chloride 113.1 H Carbon Dioxide BUN 43 H Creatinine Glucose 140 H POC Glucose 132 H 133 H Lactic Acid Calcium 7.5 L Phosphorus Magnesium AST ALT Alkaline Phosphatase Lactate Dehydrogenase Troponin T C-Reactive Protein NT-Pro-B Natriuret Pep Total Protein Albumin LDL Cholesterol Direct Vitamin B12 Fluid Glucose Fluid Total Protein Vancomycin Trough Crossmatch 11/14/21 11/14/21 11/14/21 16:14 17:48 23:23 WBC RBC Hgb Hct MCV MCH MCHC RDW Plt Count Seg Neuts % (Manual) Lymphocytes % (Manual) Seg Neutrophils # Man Lymphocytes # (Manual) Monocytes # (Manual) PT INR D-Dimer ABG pH ABG pO2 ABG HCO3 28.0 H ABG O2 Saturation ABG Base Excess 3.1 H ABG Hemoglobin 5.8 L Oxyhemoglobin 94.8 L Sodium Potassium Chloride Carbon Dioxide BUN Creatinine Glucose POC Glucose 130 H 136 H Lactic Acid Calcium Phosphorus Magnesium AST ALT Alkaline Phosphatase Lactate Dehydrogenase Troponin T C-Reactive Protein NT-Pro-B Natriuret Pep Total Protein Albumin LDL Cholesterol Direct Vitamin B12 Fluid Glucose Fluid Total Protein Vancomycin Trough Crossmatch 11/15/21 11/15/21 11/15/21 05:20 05:50 05:50 WBC 19.9 H RBC 3.50 L Hgb 8.2 L Hct 27.9 L MCV MCH 23 L MCHC 29 L RDW 24.9 H Plt Count Seg Neuts % (Manual) Lymphocytes % (Manual) Seg Neutrophils # Man Lymphocytes # (Manual) Monocytes # (Manual) PT INR D-Dimer ABG pH ABG pO2 ABG HCO3 ABG O2 Saturation ABG Base Excess ABG Hemoglobin Oxyhemoglobin Sodium 149 H Potassium Chloride 112.0 H Carbon Dioxide BUN 48 H Creatinine Glucose 152 H POC Glucose 137 H Lactic Acid Calcium 7.9 L Phosphorus Magnesium AST ALT Alkaline Phosphatase Lactate Dehydrogenase Troponin T C-Reactive Protein NT-Pro-B Natriuret Pep Total Protein Albumin LDL Cholesterol Direct Vitamin B12 Fluid Glucose Fluid Total Protein Vancomycin Trough Crossmatch 11/15/21 11/15/21 11/15/21 12:12 17:07 23:24 WBC RBC Hgb Hct MCV MCH MCHC RDW Plt Count Seg Neuts % (Manual) Lymphocytes % (Manual) Seg Neutrophils # Man Lymphocytes # (Manual) Monocytes # (Manual) PT INR D-Dimer ABG pH ABG pO2 ABG HCO3 ABG O2 Saturation ABG Base Excess ABG Hemoglobin Oxyhemoglobin Sodium Potassium Chloride Carbon Dioxide BUN Creatinine Glucose POC Glucose 114 H 135 H 123 H Lactic Acid Calcium Phosphorus Magnesium AST ALT Alkaline Phosphatase Lactate Dehydrogenase Troponin T C-Reactive Protein NT-Pro-B Natriuret Pep Total Protein Albumin LDL Cholesterol Direct Vitamin B12 Fluid Glucose Fluid Total Protein Vancomycin Trough Crossmatch 11/16/21 11/16/21 11/16/21 05:21 10:00 10:00 WBC 21.7 H RBC 2.57 L Hgb 6.0 L Hct 20.2 L D MCV MCH 24 L MCHC RDW 26.3 H Plt Count Seg Neuts % (Manual) Lymphocytes % (Manual) Seg Neutrophils # Man Lymphocytes # (Manual) Monocytes # (Manual) PT INR D-Dimer ABG pH ABG pO2 ABG HCO3 ABG O2 Saturation ABG Base Excess ABG Hemoglobin Oxyhemoglobin Sodium 153 H Potassium Chloride 114.9 H Carbon Dioxide BUN 74 H Creatinine Glucose 155 H POC Glucose 127 H Lactic Acid Calcium 8.1 L Phosphorus Magnesium AST ALT Alkaline Phosphatase Lactate Dehydrogenase Troponin T C-Reactive Protein NT-Pro-B Natriuret Pep Total Protein Albumin LDL Cholesterol Direct Vitamin B12 Fluid Glucose Fluid Total Protein Vancomycin Trough Crossmatch 11/16/21 11/16/21 11/16/21 11:34 14:00 15:25 WBC 17.2 H RBC 2.08 L Hgb 4.7 L* Hct 16.2 L* MCV 78 L MCH 23 L MCHC 29 L RDW 26.0 H Plt Count Seg Neuts % (Manual) 87.0 H Lymphocytes % (Manual) 8.0 L Seg Neutrophils # Man 15.0 H Lymphocytes # (Manual) Monocytes # (Manual) 0.9 H PT INR D-Dimer ABG pH ABG pO2 ABG HCO3 ABG O2 Saturation ABG Base Excess ABG Hemoglobin Oxyhemoglobin Sodium Potassium Chloride Carbon Dioxide BUN Creatinine Glucose POC Glucose 131 H Lactic Acid Calcium Phosphorus Magnesium AST ALT Alkaline Phosphatase Lactate Dehydrogenase Troponin T C-Reactive Protein NT-Pro-B Natriuret Pep Total Protein Albumin LDL Cholesterol Direct Vitamin B12 Fluid Glucose Fluid Total Protein Vancomycin Trough Crossmatch See Detail 11/16/21 11/16/21 11/16/21 15:25 17:21 22:43 WBC RBC Hgb 8.6 L D Hct 27.7 L D MCV MCH MCHC RDW Plt Count Seg Neuts % (Manual) Lymphocytes % (Manual) Seg Neutrophils # Man Lymphocytes # (Manual) Monocytes # (Manual) PT INR D-Dimer ABG pH ABG pO2 ABG HCO3 ABG O2 Saturation ABG Base Excess ABG Hemoglobin Oxyhemoglobin Sodium 148 H Potassium Chloride 113.2 H Carbon Dioxide BUN 84 H Creatinine Glucose 164 H POC Glucose 124 H Lactic Acid Calcium 7.6 L Phosphorus Magnesium AST ALT Alkaline Phosphatase Lactate Dehydrogenase Troponin T C-Reactive Protein NT-Pro-B Natriuret Pep Total Protein Albumin LDL Cholesterol Direct Vitamin B12 Fluid Glucose Fluid Total Protein Vancomycin Trough Crossmatch 11/16/21 11/17/21 11/17/21 23:07 05:33 05:56 WBC 25.1 H RBC 3.47 L Hgb 8.7 L Hct 28.5 L MCV MCH 25 L MCHC RDW 22.3 H Plt Count Seg Neuts % (Manual) Lymphocytes % (Manual) Seg Neutrophils # Man Lymphocytes # (Manual) Monocytes # (Manual) PT INR D-Dimer ABG pH ABG pO2 ABG HCO3 ABG O2 Saturation ABG Base Excess ABG Hemoglobin Oxyhemoglobin Sodium Potassium Chloride Carbon Dioxide BUN Creatinine Glucose POC Glucose 128 H 133 H Lactic Acid Calcium Phosphorus Magnesium AST ALT Alkaline Phosphatase Lactate Dehydrogenase Troponin T C-Reactive Protein NT-Pro-B Natriuret Pep Total Protein Albumin LDL Cholesterol Direct Vitamin B12 Fluid Glucose Fluid Total Protein Vancomycin Trough Crossmatch 11/17/21 11/17/21 11/17/21 05:56 11:00 11:55 WBC RBC Hgb 8.3 L Hct 26.9 L MCV MCH MCHC RDW Plt Count Seg Neuts % (Manual) Lymphocytes % (Manual) Seg Neutrophils # Man Lymphocytes # (Manual) Monocytes # (Manual) PT INR D-Dimer ABG pH ABG pO2 ABG HCO3 ABG O2 Saturation ABG Base Excess ABG Hemoglobin Oxyhemoglobin Sodium 151 H Potassium Chloride 113.6 H Carbon Dioxide BUN 85 H Creatinine Glucose 132 H POC Glucose 121 H Lactic Acid Calcium 7.8 L Phosphorus Magnesium AST ALT Alkaline Phosphatase Lactate Dehydrogenase Troponin T C-Reactive Protein NT-Pro-B Natriuret Pep Total Protein 5.1 L Albumin 2.2 L LDL Cholesterol Direct Vitamin B12 Fluid Glucose Fluid Total Protein Vancomycin Trough Crossmatch 11/17/21 11/17/21 11/18/21 18:04 18:55 00:26 WBC RBC Hgb 7.5 L 7.1 L Hct 24.8 L 23.6 L MCV MCH MCHC RDW Plt Count Seg Neuts % (Manual) Lymphocytes % (Manual) Seg Neutrophils # Man Lymphocytes # (Manual) Monocytes # (Manual) PT INR D-Dimer ABG pH ABG pO2 ABG HCO3 ABG O2 Saturation ABG Base Excess ABG Hemoglobin Oxyhemoglobin Sodium Potassium Chloride Carbon Dioxide BUN Creatinine Glucose POC Glucose 144 H Lactic Acid Calcium Phosphorus Magnesium AST ALT Alkaline Phosphatase Lactate Dehydrogenase Troponin T C-Reactive Protein NT-Pro-B Natriuret Pep Total Protein Albumin LDL Cholesterol Direct Vitamin B12 Fluid Glucose Fluid Total Protein Vancomycin Trough Crossmatch 11/18/21 11/18/21 11/18/21 00:43 05:10 05:10 WBC 12.5 H RBC 2.39 L Hgb 6.1 L Hct 20.2 L MCV MCH 25 L MCHC RDW 23.2 H Plt Count Seg Neuts % (Manual) Lymphocytes % (Manual) Seg Neutrophils # Man Lymphocytes # (Manual) Monocytes # (Manual) PT INR D-Dimer ABG pH ABG pO2 ABG HCO3 ABG O2 Saturation ABG Base Excess ABG Hemoglobin Oxyhemoglobin Sodium 131 L D Potassium 2.9 L* D Chloride 97.8 L Carbon Dioxide BUN 58 H Creatinine Glucose 665 H* POC Glucose 139 H Lactic Acid Calcium 7.0 L Phosphorus 2.20 L D Magnesium 1.50 L AST ALT Alkaline Phosphatase Lactate Dehydrogenase Troponin T C-Reactive Protein NT-Pro-B Natriuret Pep Total Protein Albumin LDL Cholesterol Direct Vitamin B12 Fluid Glucose Fluid Total Protein Vancomycin Trough Crossmatch 11/18/21 11/18/21 11/18/21 05:23 07:10 10:45 WBC RBC Hgb Hct MCV MCH MCHC RDW Plt Count Seg Neuts % (Manual) Lymphocytes % (Manual) Seg Neutrophils # Man Lymphocytes # (Manual) Monocytes # (Manual) PT INR D-Dimer ABG pH ABG pO2 ABG HCO3 ABG O2 Saturation ABG Base Excess ABG Hemoglobin Oxyhemoglobin Sodium 148 H D Potassium 3.1 L Chloride 111.9 H Carbon Dioxide BUN 63 H Creatinine Glucose 141 H POC Glucose 124 H Lactic Acid Calcium 8.1 L D Phosphorus Magnesium AST ALT Alkaline Phosphatase Lactate Dehydrogenase Troponin T C-Reactive Protein NT-Pro-B Natriuret Pep Total Protein Albumin LDL Cholesterol Direct Vitamin B12 Fluid Glucose Fluid Total Protein Vancomycin Trough Crossmatch See Detail 11/18/21 11/19/21 11/19/21 11:57 00:19 04:55 WBC RBC 3.35 L Hgb 9.0 L 8.9 L Hct 28.3 L D 28.1 L MCV MCH 27 L MCHC RDW 20.3 H Plt Count Seg Neuts % (Manual) Lymphocytes % (Manual) Seg Neutrophils # Man Lymphocytes # (Manual) Monocytes # (Manual) PT INR D-Dimer ABG pH ABG pO2 ABG HCO3 ABG O2 Saturation ABG Base Excess ABG Hemoglobin Oxyhemoglobin Sodium Potassium Chloride Carbon Dioxide BUN Creatinine Glucose POC Glucose 119 H Lactic Acid Calcium Phosphorus Magnesium AST ALT Alkaline Phosphatase Lactate Dehydrogenase Troponin T C-Reactive Protein NT-Pro-B Natriuret Pep Total Protein Albumin LDL Cholesterol Direct Vitamin B12 Fluid Glucose Fluid Total Protein Vancomycin Trough Crossmatch 11/19/21 11/19/21 11/20/21 04:55 05:42 00:55 WBC RBC Hgb 9.0 L Hct 28.6 L MCV MCH MCHC RDW Plt Count Seg Neuts % (Manual) Lymphocytes % (Manual) Seg Neutrophils # Man Lymphocytes # (Manual) Monocytes # (Manual) PT INR D-Dimer ABG pH ABG pO2 ABG HCO3 ABG O2 Saturation ABG Base Excess ABG Hemoglobin Oxyhemoglobin Sodium Potassium 3.5 L Chloride 108.6 H Carbon Dioxide BUN 47 H Creatinine Glucose 207 H POC Glucose 63 L Lactic Acid Calcium 7.1 L Phosphorus Magnesium AST ALT Alkaline Phosphatase Lactate Dehydrogenase Troponin T C-Reactive Protein NT-Pro-B Natriuret Pep Total Protein Albumin LDL Cholesterol Direct Vitamin B12 Fluid Glucose Fluid Total Protein Vancomycin Trough Crossmatch 11/20/21 11/20/21 11/20/21 05:40 05:40 Unknown WBC RBC 3.40 L Hgb 9.1 L Hct 28.8 L MCV MCH 27 L MCHC RDW 20.7 H Plt Count Seg Neuts % (Manual) Lymphocytes % (Manual) Seg Neutrophils # Man Lymphocytes # (Manual) Monocytes # (Manual) PT INR D-Dimer ABG pH ABG pO2 ABG HCO3 ABG O2 Saturation ABG Base Excess -2.7 L ABG Hemoglobin 9.5 L Oxyhemoglobin 94.3 L Sodium Potassium 3.5 L Chloride 108.9 H Carbon Dioxide BUN 37 H Creatinine Glucose 117 H POC Glucose Lactic Acid Calcium 7.5 L Phosphorus Magnesium AST ALT Alkaline Phosphatase Lactate Dehydrogenase Troponin T C-Reactive Protein NT-Pro-B Natriuret Pep Total Protein Albumin LDL Cholesterol Direct Vitamin B12 Fluid Glucose Fluid Total Protein Vancomycin Trough Crossmatch 11/21/21 11/21/21 11/21/21 04:30 04:30 16:00 WBC RBC 3.25 L Hgb 8.6 L Hct 28.1 L MCV MCH 26 L MCHC RDW 20.7 H Plt Count Seg Neuts % (Manual) Lymphocytes % (Manual) Seg Neutrophils # Man Lymphocytes # (Manual) Monocytes # (Manual) PT INR D-Dimer ABG pH ABG pO2 114.2 H ABG HCO3 ABG O2 Saturation ABG Base Excess ABG Hemoglobin 9.1 L Oxyhemoglobin Sodium 134 L Potassium Chloride Carbon Dioxide 20 L BUN 34 H Creatinine Glucose POC Glucose Lactic Acid Calcium 7.1 L Phosphorus Magnesium AST ALT Alkaline Phosphatase Lactate Dehydrogenase Troponin T C-Reactive Protein NT-Pro-B Natriuret Pep Total Protein Albumin LDL Cholesterol Direct Vitamin B12 Fluid Glucose Fluid Total Protein Vancomycin Trough Crossmatch 11/22/21 11/22/21 11/22/21 07:07 07:07 23:54 WBC RBC 3.30 L Hgb 9.0 L Hct 28.5 L MCV MCH 27 L MCHC RDW 21.0 H Plt Count Seg Neuts % (Manual) Lymphocytes % (Manual) Seg Neutrophils # Man Lymphocytes # (Manual) Monocytes # (Manual) PT INR D-Dimer ABG pH ABG pO2 ABG HCO3 ABG O2 Saturation ABG Base Excess ABG Hemoglobin Oxyhemoglobin Sodium Potassium Chloride Carbon Dioxide BUN 32 H Creatinine Glucose 106 H POC Glucose 110 H Lactic Acid Calcium 7.5 L Phosphorus Magnesium AST ALT Alkaline Phosphatase Lactate Dehydrogenase Troponin T C-Reactive Protein NT-Pro-B Natriuret Pep Total Protein Albumin LDL Cholesterol Direct Vitamin B12 Fluid Glucose Fluid Total Protein Vancomycin Trough Crossmatch 11/23/21 11/23/21 11/23/21 04:38 04:38 06:01 WBC RBC 3.23 L Hgb 8.8 L Hct 28.0 L MCV MCH 27 L MCHC RDW 21.3 H Plt Count Seg Neuts % (Manual) Lymphocytes % (Manual) Seg Neutrophils # Man Lymphocytes # (Manual) Monocytes # (Manual) PT INR D-Dimer ABG pH ABG pO2 ABG HCO3 ABG O2 Saturation ABG Base Excess ABG Hemoglobin Oxyhemoglobin Sodium 136 L Potassium Chloride Carbon Dioxide 20 L BUN 32 H Creatinine Glucose 109 H POC Glucose 115 H Lactic Acid Calcium 7.7 L Phosphorus Magnesium AST ALT Alkaline Phosphatase Lactate Dehydrogenase Troponin T C-Reactive Protein NT-Pro-B Natriuret Pep Total Protein Albumin LDL Cholesterol Direct Vitamin B12 Fluid Glucose Fluid Total Protein Vancomycin Trough Crossmatch 11/23/21 11/24/21 11/24/21 11:40 00:03 04:13 WBC RBC 3.18 L Hgb 8.5 L Hct 27.5 L MCV MCH 27 L MCHC RDW 21.6 H Plt Count Seg Neuts % (Manual) Lymphocytes % (Manual) Seg Neutrophils # Man Lymphocytes # (Manual) Monocytes # (Manual) PT INR D-Dimer ABG pH ABG pO2 ABG HCO3 ABG O2 Saturation ABG Base Excess ABG Hemoglobin Oxyhemoglobin Sodium Potassium Chloride Carbon Dioxide BUN Creatinine Glucose POC Glucose 117 H 111 H Lactic Acid Calcium Phosphorus Magnesium AST ALT Alkaline Phosphatase Lactate Dehydrogenase Troponin T C-Reactive Protein NT-Pro-B Natriuret Pep Total Protein Albumin LDL Cholesterol Direct Vitamin B12 Fluid Glucose Fluid Total Protein Vancomycin Trough Crossmatch 11/24/21 11/24/21 11/24/21 04:13 05:30 11:10 WBC RBC Hgb Hct MCV MCH MCHC RDW Plt Count Seg Neuts % (Manual) Lymphocytes % (Manual) Seg Neutrophils # Man Lymphocytes # (Manual) Monocytes # (Manual) PT INR D-Dimer ABG pH ABG pO2 ABG HCO3 ABG O2 Saturation ABG Base Excess ABG Hemoglobin Oxyhemoglobin Sodium Potassium Chloride Carbon Dioxide BUN 31 H Creatinine Glucose 101 H POC Glucose 115 H 107 H Lactic Acid Calcium 7.7 L Phosphorus Magnesium AST ALT Alkaline Phosphatase Lactate Dehydrogenase Troponin T C-Reactive Protein NT-Pro-B Natriuret Pep Total Protein Albumin LDL Cholesterol Direct Vitamin B12 Fluid Glucose Fluid Total Protein Vancomycin Trough Crossmatch 11/24/21 11/24/21 11/25/21 16:34 17:57 05:12 WBC RBC 3.11 L Hgb 8.2 L Hct 26.6 L MCV MCH 26 L MCHC RDW 21.3 H Plt Count Seg Neuts % (Manual) Lymphocytes % (Manual) Seg Neutrophils # Man Lymphocytes # (Manual) Monocytes # (Manual) PT INR D-Dimer ABG pH ABG pO2 ABG HCO3 ABG O2 Saturation ABG Base Excess ABG Hemoglobin Oxyhemoglobin Sodium Potassium Chloride Carbon Dioxide BUN Creatinine Glucose POC Glucose 115 H 110 H Lactic Acid Calcium Phosphorus Magnesium AST ALT Alkaline Phosphatase Lactate Dehydrogenase Troponin T C-Reactive Protein NT-Pro-B Natriuret Pep Total Protein Albumin LDL Cholesterol Direct Vitamin B12 Fluid Glucose Fluid Total Protein Vancomycin Trough Crossmatch 11/25/21 11/25/21 11/26/21 05:12 11:20 05:00 WBC RBC 3.30 L Hgb 8.8 L Hct 28.2 L MCV MCH 27 L MCHC RDW 20.7 H Plt Count Seg Neuts % (Manual) Lymphocytes % (Manual) Seg Neutrophils # Man Lymphocytes # (Manual) Monocytes # (Manual) PT INR D-Dimer ABG pH ABG pO2 ABG HCO3 ABG O2 Saturation ABG Base Excess ABG Hemoglobin Oxyhemoglobin Sodium Potassium Chloride Carbon Dioxide BUN 32 H Creatinine Glucose 118 H POC Glucose 118 H Lactic Acid Calcium 8.2 L Phosphorus Magnesium AST ALT Alkaline Phosphatase Lactate Dehydrogenase Troponin T C-Reactive Protein NT-Pro-B Natriuret Pep Total Protein Albumin LDL Cholesterol Direct Vitamin B12 Fluid Glucose Fluid Total Protein Vancomycin Trough Crossmatch 11/26/21 11/26/21 11/26/21 05:00 05:00 05:44 WBC RBC Hgb Hct MCV MCH MCHC RDW Plt Count Seg Neuts % (Manual) Lymphocytes % (Manual) Seg Neutrophils # Man Lymphocytes # (Manual) Monocytes # (Manual) PT 16.9 H INR 1.24 H D-Dimer ABG pH ABG pO2 ABG HCO3 ABG O2 Saturation ABG Base Excess ABG Hemoglobin Oxyhemoglobin Sodium Potassium Chloride Carbon Dioxide BUN 31 H Creatinine Glucose 104 H POC Glucose 110 H Lactic Acid Calcium 7.9 L Phosphorus Magnesium AST ALT Alkaline Phosphatase Lactate Dehydrogenase Troponin T C-Reactive Protein NT-Pro-B Natriuret Pep Total Protein Albumin LDL Cholesterol Direct Vitamin B12 Fluid Glucose Fluid Total Protein Vancomycin Trough Crossmatch 11/26/21 11/27/21 11/27/21 23:55 07:40 07:40 WBC RBC 3.18 L Hgb 8.5 L Hct 27.0 L MCV MCH 27 L MCHC RDW 21.2 H Plt Count Seg Neuts % (Manual) Lymphocytes % (Manual) Seg Neutrophils # Man Lymphocytes # (Manual) Monocytes # (Manual) PT INR D-Dimer ABG pH ABG pO2 ABG HCO3 ABG O2 Saturation ABG Base Excess ABG Hemoglobin Oxyhemoglobin Sodium Potassium Chloride Carbon Dioxide BUN 27 H Creatinine Glucose 112 H POC Glucose 63 L Lactic Acid Calcium 7.6 L Phosphorus Magnesium AST ALT Alkaline Phosphatase Lactate Dehydrogenase Troponin T C-Reactive Protein NT-Pro-B Natriuret Pep Total Protein Albumin LDL Cholesterol Direct Vitamin B12 Fluid Glucose Fluid Total Protein Vancomycin Trough Crossmatch 11/27/21 11/27/21 11/27/21 12:04 13:40 13:40 WBC RBC 3.31 L Hgb 8.7 L Hct 28.0 L MCV MCH 26 L MCHC RDW 20.7 H Plt Count Seg Neuts % (Manual) Lymphocytes % (Manual) Seg Neutrophils # Man Lymphocytes # (Manual) Monocytes # (Manual) PT INR D-Dimer ABG pH ABG pO2 ABG HCO3 ABG O2 Saturation ABG Base Excess ABG Hemoglobin Oxyhemoglobin Sodium 136 L Potassium Chloride Carbon Dioxide BUN 25 H Creatinine Glucose 127 H POC Glucose 109 H Lactic Acid Calcium 7.6 L Phosphorus Magnesium 1.40 L AST ALT Alkaline Phosphatase Lactate Dehydrogenase Troponin T C-Reactive Protein NT-Pro-B Natriuret Pep Total Protein Albumin LDL Cholesterol Direct Vitamin B12 Fluid Glucose Fluid Total Protein Vancomycin Trough Crossmatch 11/27/21 11/27/21 11/28/21 17:44 23:33 12:20 WBC RBC Hgb Hct MCV MCH MCHC RDW Plt Count Seg Neuts % (Manual) Lymphocytes % (Manual) Seg Neutrophils # Man Lymphocytes # (Manual) Monocytes # (Manual) PT INR D-Dimer ABG pH ABG pO2 ABG HCO3 ABG O2 Saturation ABG Base Excess ABG Hemoglobin Oxyhemoglobin Sodium Potassium Chloride Carbon Dioxide BUN Creatinine Glucose POC Glucose 107 H 108 H 114 H Lactic Acid Calcium Phosphorus Magnesium AST ALT Alkaline Phosphatase Lactate Dehydrogenase Troponin T C-Reactive Protein NT-Pro-B Natriuret Pep Total Protein Albumin LDL Cholesterol Direct Vitamin B12 Fluid Glucose Fluid Total Protein Vancomycin Trough Crossmatch 11/29/21 11/29/21 11/29/21 00:09 03:20 03:20 WBC RBC 3.05 L Hgb 8.2 L Hct 25.8 L MCV MCH 27 L MCHC RDW 20.9 H Plt Count Seg Neuts % (Manual) Lymphocytes % (Manual) Seg Neutrophils # Man Lymphocytes # (Manual) Monocytes # (Manual) PT INR D-Dimer ABG pH ABG pO2 ABG HCO3 ABG O2 Saturation ABG Base Excess ABG Hemoglobin Oxyhemoglobin Sodium 133 L Potassium Chloride Carbon Dioxide BUN 24 H Creatinine Glucose 137 H POC Glucose 134 H Lactic Acid Calcium 7.4 L Phosphorus Magnesium AST ALT Alkaline Phosphatase Lactate Dehydrogenase Troponin T C-Reactive Protein NT-Pro-B Natriuret Pep Total Protein Albumin LDL Cholesterol Direct Vitamin B12 Fluid Glucose Fluid Total Protein Vancomycin Trough Crossmatch 11/29/21 11/29/21 11/29/21 05:38 11:39 17:11 WBC RBC Hgb Hct MCV MCH MCHC RDW Plt Count Seg Neuts % (Manual) Lymphocytes % (Manual) Seg Neutrophils # Man Lymphocytes # (Manual) Monocytes # (Manual) PT INR D-Dimer ABG pH ABG pO2 ABG HCO3 ABG O2 Saturation ABG Base Excess ABG Hemoglobin Oxyhemoglobin Sodium Potassium Chloride Carbon Dioxide BUN Creatinine Glucose POC Glucose 117 H 143 H 124 H Lactic Acid Calcium Phosphorus Magnesium AST ALT Alkaline Phosphatase Lactate Dehydrogenase Troponin T C-Reactive Protein NT-Pro-B Natriuret Pep Total Protein Albumin LDL Cholesterol Direct Vitamin B12 Fluid Glucose Fluid Total Protein Vancomycin Trough Crossmatch 11/29/21 11/30/21 11/30/21 20:15 05:40 05:40 WBC 12.6 H RBC 3.41 L Hgb 9.1 L Hct 28.9 L MCV MCH 27 L MCHC RDW 20.4 H Plt Count Seg Neuts % (Manual) Lymphocytes % (Manual) Seg Neutrophils # Man Lymphocytes # (Manual) Monocytes # (Manual) PT INR D-Dimer ABG pH ABG pO2 ABG HCO3 ABG O2 Saturation ABG Base Excess ABG Hemoglobin Oxyhemoglobin Sodium Potassium Chloride Carbon Dioxide BUN 24 H Creatinine Glucose 131 H POC Glucose Lactic Acid Calcium 7.6 L Phosphorus Magnesium AST ALT Alkaline Phosphatase Lactate Dehydrogenase Troponin T 0.045 H C-Reactive Protein NT-Pro-B Natriuret Pep Total Protein Albumin LDL Cholesterol Direct 25 L Vitamin B12 Fluid Glucose Fluid Total Protein Vancomycin Trough Crossmatch 11/30/21 11/30/21 12/01/21 11:29 16:51 05:00 WBC RBC 2.97 L Hgb 8.0 L Hct 25.0 L MCV MCH 27 L MCHC RDW 20.8 H Plt Count Seg Neuts % (Manual) Lymphocytes % (Manual) Seg Neutrophils # Man Lymphocytes # (Manual) Monocytes # (Manual) PT INR D-Dimer ABG pH ABG pO2 ABG HCO3 ABG O2 Saturation ABG Base Excess ABG Hemoglobin Oxyhemoglobin Sodium Potassium Chloride Carbon Dioxide BUN Creatinine Glucose POC Glucose 123 H 114 H Lactic Acid Calcium Phosphorus Magnesium AST ALT Alkaline Phosphatase Lactate Dehydrogenase Troponin T C-Reactive Protein NT-Pro-B Natriuret Pep Total Protein Albumin LDL Cholesterol Direct Vitamin B12 Fluid Glucose Fluid Total Protein Vancomycin Trough Crossmatch 12/01/21 12/01/21 12/01/21 05:00 05:25 11:54 WBC RBC Hgb Hct MCV MCH MCHC RDW Plt Count Seg Neuts % (Manual) Lymphocytes % (Manual) Seg Neutrophils # Man Lymphocytes # (Manual) Monocytes # (Manual) PT INR D-Dimer ABG pH ABG pO2 ABG HCO3 ABG O2 Saturation ABG Base Excess ABG Hemoglobin Oxyhemoglobin Sodium 136 L Potassium Chloride Carbon Dioxide BUN 24 H Creatinine Glucose 117 H POC Glucose 108 H 107 H Lactic Acid Calcium 7.5 L Phosphorus Magnesium 1.60 L AST ALT Alkaline Phosphatase Lactate Dehydrogenase Troponin T C-Reactive Protein NT-Pro-B Natriuret Pep Total Protein Albumin LDL Cholesterol Direct Vitamin B12 Fluid Glucose Fluid Total Protein Vancomycin Trough Crossmatch 12/01/21 12/02/21 12/02/21 17:40 00:07 04:20 WBC RBC 2.92 L Hgb 7.7 L Hct 24.3 L MCV MCH 26 L MCHC RDW 20.5 H Plt Count Seg Neuts % (Manual) Lymphocytes % (Manual) Seg Neutrophils # Man Lymphocytes # (Manual) Monocytes # (Manual) PT INR D-Dimer ABG pH ABG pO2 ABG HCO3 ABG O2 Saturation ABG Base Excess ABG Hemoglobin Oxyhemoglobin Sodium Potassium Chloride Carbon Dioxide BUN Creatinine Glucose POC Glucose 123 H 110 H Lactic Acid Calcium Phosphorus Magnesium AST ALT Alkaline Phosphatase Lactate Dehydrogenase Troponin T C-Reactive Protein NT-Pro-B Natriuret Pep Total Protein Albumin LDL Cholesterol Direct Vitamin B12 Fluid Glucose Fluid Total Protein Vancomycin Trough Crossmatch 12/02/21 12/02/21 12/02/21 04:20 11:17 18:20 WBC RBC Hgb Hct MCV MCH MCHC RDW Plt Count Seg Neuts % (Manual) Lymphocytes % (Manual) Seg Neutrophils # Man Lymphocytes # (Manual) Monocytes # (Manual) PT INR D-Dimer ABG pH ABG pO2 ABG HCO3 ABG O2 Saturation ABG Base Excess ABG Hemoglobin Oxyhemoglobin Sodium 135 L Potassium Chloride Carbon Dioxide BUN 26 H Creatinine Glucose 121 H POC Glucose 117 H 113 H Lactic Acid Calcium 7.4 L Phosphorus Magnesium AST ALT Alkaline Phosphatase Lactate Dehydrogenase Troponin T C-Reactive Protein NT-Pro-B Natriuret Pep Total Protein Albumin LDL Cholesterol Direct Vitamin B12 Fluid Glucose Fluid Total Protein Vancomycin Trough Crossmatch 12/03/21 12/03/21 12/03/21 00:12 04:00 04:00 WBC RBC 2.99 L Hgb 7.8 L Hct 24.6 L MCV MCH 26 L MCHC RDW 20.2 H Plt Count Seg Neuts % (Manual) Lymphocytes % (Manual) Seg Neutrophils # Man Lymphocytes # (Manual) Monocytes # (Manual) PT INR D-Dimer ABG pH ABG pO2 ABG HCO3 ABG O2 Saturation ABG Base Excess ABG Hemoglobin Oxyhemoglobin Sodium 136 L Potassium Chloride Carbon Dioxide BUN 27 H Creatinine Glucose 133 H POC Glucose 121 H Lactic Acid Calcium 7.5 L Phosphorus Magnesium AST ALT Alkaline Phosphatase Lactate Dehydrogenase Troponin T C-Reactive Protein NT-Pro-B Natriuret Pep Total Protein Albumin LDL Cholesterol Direct Vitamin B12 Fluid Glucose Fluid Total Protein Vancomycin Trough Crossmatch 12/03/21 12/03/21 12/03/21 06:30 11:13 16:00 WBC RBC Hgb Hct MCV MCH MCHC RDW Plt Count Seg Neuts % (Manual) Lymphocytes % (Manual) Seg Neutrophils # Man Lymphocytes # (Manual) Monocytes # (Manual) PT INR D-Dimer ABG pH ABG pO2 ABG HCO3 ABG O2 Saturation ABG Base Excess ABG Hemoglobin Oxyhemoglobin Sodium Potassium Chloride Carbon Dioxide BUN Creatinine Glucose POC Glucose 129 H 125 H 125 H Lactic Acid Calcium Phosphorus Magnesium AST ALT Alkaline Phosphatase Lactate Dehydrogenase Troponin T C-Reactive Protein NT-Pro-B Natriuret Pep Total Protein Albumin LDL Cholesterol Direct Vitamin B12 Fluid Glucose Fluid Total Protein Vancomycin Trough Crossmatch 12/03/21 12/04/21 12/04/21 23:32 04:00 05:36 WBC RBC Hgb Hct MCV MCH MCHC RDW Plt Count Seg Neuts % (Manual) Lymphocytes % (Manual) Seg Neutrophils # Man Lymphocytes # (Manual) Monocytes # (Manual) PT INR D-Dimer ABG pH ABG pO2 ABG HCO3 ABG O2 Saturation ABG Base Excess ABG Hemoglobin Oxyhemoglobin Sodium Potassium 3.5 L Chloride Carbon Dioxide BUN 26 H Creatinine 0.5 L Glucose 151 H POC Glucose 133 H 142 H Lactic Acid Calcium 8.3 L Phosphorus Magnesium AST ALT Alkaline Phosphatase Lactate Dehydrogenase Troponin T C-Reactive Protein NT-Pro-B Natriuret Pep Total Protein Albumin LDL Cholesterol Direct Vitamin B12 Fluid Glucose Fluid Total Protein Vancomycin Trough Crossmatch 12/04/21 12/04/21 12/05/21 11:24 15:58 04:36 WBC RBC Hgb Hct MCV MCH MCHC RDW Plt Count Seg Neuts % (Manual) Lymphocytes % (Manual) Seg Neutrophils # Man Lymphocytes # (Manual) Monocytes # (Manual) PT INR D-Dimer ABG pH ABG pO2 ABG HCO3 ABG O2 Saturation ABG Base Excess ABG Hemoglobin Oxyhemoglobin Sodium Potassium Chloride Carbon Dioxide BUN 21 H Creatinine 0.5 L Glucose 119 H POC Glucose 130 H 111 H Lactic Acid Calcium 8.3 L Phosphorus Magnesium AST ALT Alkaline Phosphatase Lactate Dehydrogenase Troponin T C-Reactive Protein NT-Pro-B Natriuret Pep Total Protein Albumin LDL Cholesterol Direct Vitamin B12 Fluid Glucose Fluid Total Protein Vancomycin Trough Crossmatch 12/05/21 12/05/21 12/05/21 05:15 10:40 11:12 WBC RBC 2.98 L Hgb 8.1 L Hct 24.6 L MCV MCH 27 L MCHC RDW 20.8 H Plt Count Seg Neuts % (Manual) Lymphocytes % (Manual) Seg Neutrophils # Man Lymphocytes # (Manual) Monocytes # (Manual) PT INR D-Dimer ABG pH ABG pO2 ABG HCO3 ABG O2 Saturation ABG Base Excess ABG Hemoglobin Oxyhemoglobin Sodium Potassium Chloride Carbon Dioxide BUN Creatinine Glucose POC Glucose 107 H 110 H Lactic Acid Calcium Phosphorus Magnesium AST ALT Alkaline Phosphatase Lactate Dehydrogenase Troponin T C-Reactive Protein NT-Pro-B Natriuret Pep Total Protein Albumin LDL Cholesterol Direct Vitamin B12 Fluid Glucose Fluid Total Protein Vancomycin Trough Crossmatch 12/05/21 12/06/21 12/06/21 23:39 04:25 04:25 WBC RBC 2.95 L Hgb 7.9 L Hct 24.7 L MCV MCH 27 L MCHC RDW 20.9 H Plt Count Seg Neuts % (Manual) Lymphocytes % (Manual) Seg Neutrophils # Man Lymphocytes # (Manual) Monocytes # (Manual) PT INR D-Dimer ABG pH ABG pO2 ABG HCO3 ABG O2 Saturation ABG Base Excess ABG Hemoglobin Oxyhemoglobin Sodium Potassium Chloride Carbon Dioxide BUN 22 H Creatinine 0.5 L Glucose 136 H POC Glucose 118 H Lactic Acid Calcium 8.2 L Phosphorus Magnesium AST ALT Alkaline Phosphatase Lactate Dehydrogenase Troponin T C-Reactive Protein NT-Pro-B Natriuret Pep Total Protein Albumin LDL Cholesterol Direct Vitamin B12 Fluid Glucose Fluid Total Protein Vancomycin Trough Crossmatch 12/06/21 12/06/21 12/07/21 05:28 11:27 04:00 WBC RBC Hgb 7.2 L Hct 21.8 L MCV MCH MCHC RDW Plt Count Seg Neuts % (Manual) Lymphocytes % (Manual) Seg Neutrophils # Man Lymphocytes # (Manual) Monocytes # (Manual) PT INR D-Dimer ABG pH ABG pO2 ABG HCO3 ABG O2 Saturation ABG Base Excess ABG Hemoglobin Oxyhemoglobin Sodium Potassium Chloride Carbon Dioxide BUN Creatinine Glucose POC Glucose 142 H 126 H Lactic Acid Calcium Phosphorus Magnesium AST ALT Alkaline Phosphatase Lactate Dehydrogenase Troponin T C-Reactive Protein NT-Pro-B Natriuret Pep Total Protein Albumin LDL Cholesterol Direct Vitamin B12 Fluid Glucose Fluid Total Protein Vancomycin Trough Crossmatch 12/07/21 12/07/2122 04:00 05:30 11:12 WBC RBC Hgb Hct MCV MCH MCHC RDW Plt Count Seg Neuts % (Manual) Lymphocytes % (Manual) Seg Neutrophils # Man Lymphocytes # (Manual) Monocytes # (Manual) PT INR D-Dimer ABG pH ABG pO2 ABG HCO3 ABG O2 Saturation ABG Base Excess ABG Hemoglobin Oxyhemoglobin Sodium Potassium Chloride Carbon Dioxide BUN 22 H Creatinine Glucose 119 H POC Glucose 121 H 124 H Lactic Acid Calcium 8.0 L Phosphorus Magnesium AST ALT Alkaline Phosphatase Lactate Dehydrogenase Troponin T C-Reactive Protein NT-Pro-B Natriuret Pep Total Protein Albumin LDL Cholesterol Direct Vitamin B12 Fluid Glucose Fluid Total Protein Vancomycin Trough Crossmatch 12/08/21 12/08/21 12/08/21 04:00 04:00 05:39 WBC RBC 2.81 L Hgb 7.7 L Hct 23.5 L MCV MCH MCHC RDW 21.2 H Plt Count Seg Neuts % (Manual) Lymphocytes % (Manual) Seg Neutrophils # Man Lymphocytes # (Manual) Monocytes # (Manual) PT INR D-Dimer ABG pH ABG pO2 ABG HCO3 ABG O2 Saturation ABG Base Excess ABG Hemoglobin Oxyhemoglobin Sodium 135 L Potassium Chloride Carbon Dioxide BUN 23 H Creatinine Glucose 109 H POC Glucose 112 H Lactic Acid Calcium Phosphorus Magnesium AST ALT Alkaline Phosphatase Lactate Dehydrogenase Troponin T C-Reactive Protein NT-Pro-B Natriuret Pep Total Protein Albumin LDL Cholesterol Direct Vitamin B12 Fluid Glucose Fluid Total Protein Vancomycin Trough Crossmatch 12/08/21 12/09/21 12/09/21 11:03 04:20 04:20 WBC RBC 2.67 L Hgb 7.6 L Hct 22.1 L MCV MCH MCHC RDW 20.8 H Plt Count Seg Neuts % (Manual) Lymphocytes % (Manual) Seg Neutrophils # Man Lymphocytes # (Manual) Monocytes # (Manual) PT INR D-Dimer ABG pH ABG pO2 ABG HCO3 ABG O2 Saturation ABG Base Excess ABG Hemoglobin Oxyhemoglobin Sodium 135 L Potassium Chloride 97.8 L Carbon Dioxide BUN 26 H Creatinine Glucose 119 H POC Glucose 108 H Lactic Acid Calcium 7.7 L Phosphorus Magnesium AST ALT Alkaline Phosphatase Lactate Dehydrogenase Troponin T C-Reactive Protein NT-Pro-B Natriuret Pep Total Protein Albumin LDL Cholesterol Direct Vitamin B12 Fluid Glucose Fluid Total Protein Vancomycin Trough Crossmatch 0212/10/21 12/10/21 11:26 04:33 11:12 WBC RBC Hgb Hct MCV MCH MCHC RDW Plt Count Seg Neuts % (Manual) Lymphocytes % (Manual) Seg Neutrophils # Man Lymphocytes # (Manual) Monocytes # (Manual) PT INR D-Dimer ABG pH ABG pO2 ABG HCO3 ABG O2 Saturation ABG Base Excess ABG Hemoglobin Oxyhemoglobin Sodium 136 L Potassium Chloride Carbon Dioxide BUN 27 H Creatinine Glucose 117 H POC Glucose 110 H 117 H Lactic Acid Calcium 8.2 L Phosphorus Magnesium AST ALT Alkaline Phosphatase Lactate Dehydrogenase Troponin T C-Reactive Protein NT-Pro-B Natriuret Pep Total Protein Albumin LDL Cholesterol Direct Vitamin B12 Fluid Glucose Fluid Total Protein Vancomycin Trough Crossmatch 12/10/21 12/10/21 12/11/21 16:02 23:31 04:35 WBC RBC 2.57 L Hgb 7.0 L Hct 21.4 L MCV MCH 27 L MCHC RDW 21.1 H Plt Count Seg Neuts % (Manual) Lymphocytes % (Manual) Seg Neutrophils # Man Lymphocytes # (Manual) Monocytes # (Manual) PT INR D-Dimer ABG pH ABG pO2 ABG HCO3 ABG O2 Saturation ABG Base Excess ABG Hemoglobin Oxyhemoglobin Sodium Potassium Chloride Carbon Dioxide BUN Creatinine Glucose POC Glucose 137 H 111 H Lactic Acid Calcium Phosphorus Magnesium AST ALT Alkaline Phosphatase Lactate Dehydrogenase Troponin T C-Reactive Protein NT-Pro-B Natriuret Pep Total Protein Albumin LDL Cholesterol Direct Vitamin B12 Fluid Glucose Fluid Total Protein Vancomycin Trough Crossmatch 12/11/21 12/11/21 12/11/21 04:35 12:46 16:07 WBC RBC Hgb Hct MCV MCH MCHC RDW Plt Count Seg Neuts % (Manual) Lymphocytes % (Manual) Seg Neutrophils # Man Lymphocytes # (Manual) Monocytes # (Manual) PT INR D-Dimer ABG pH ABG pO2 ABG HCO3 ABG O2 Saturation ABG Base Excess ABG Hemoglobin Oxyhemoglobin Sodium 136 L Potassium Chloride Carbon Dioxide BUN 27 H Creatinine Glucose 112 H POC Glucose 115 H 111 H Lactic Acid Calcium 7.6 L Phosphorus Magnesium AST ALT Alkaline Phosphatase Lactate Dehydrogenase Troponin T C-Reactive Protein NT-Pro-B Natriuret Pep Total Protein Albumin LDL Cholesterol Direct Vitamin B12 Fluid Glucose Fluid Total Protein Vancomycin Trough Crossmatch 12/11/21 12/12/21 12/12/21 23:42 04:30 04:30 WBC RBC 2.60 L Hgb 7.1 L Hct 21.5 L MCV MCH 27 L MCHC RDW 20.3 H Plt Count Seg Neuts % (Manual) Lymphocytes % (Manual) Seg Neutrophils # Man Lymphocytes # (Manual) Monocytes # (Manual) PT INR D-Dimer ABG pH ABG pO2 ABG HCO3 ABG O2 Saturation ABG Base Excess ABG Hemoglobin Oxyhemoglobin Sodium 135 L Potassium Chloride 97.9 L Carbon Dioxide BUN 26 H Creatinine 0.5 L Glucose 138 H POC Glucose 115 H Lactic Acid Calcium 8.2 L Phosphorus Magnesium AST ALT Alkaline Phosphatase Lactate Dehydrogenase Troponin T C-Reactive Protein NT-Pro-B Natriuret Pep Total Protein Albumin LDL Cholesterol Direct Vitamin B12 Fluid Glucose Fluid Total Protein Vancomycin Trough Crossmatch 12/12/21 12/12/21 12/12/21 04:30 05:10 11:51 WBC RBC Hgb Hct MCV MCH MCHC RDW Plt Count Seg Neuts % (Manual) Lymphocytes % (Manual) Seg Neutrophils # Man Lymphocytes # (Manual) Monocytes # (Manual) PT INR D-Dimer ABG pH ABG pO2 ABG HCO3 ABG O2 Saturation ABG Base Excess ABG Hemoglobin Oxyhemoglobin Sodium Potassium Chloride Carbon Dioxide BUN Creatinine Glucose POC Glucose 119 H 119 H Lactic Acid Calcium Phosphorus Magnesium AST ALT Alkaline Phosphatase Lactate Dehydrogenase Troponin T C-Reactive Protein NT-Pro-B Natriuret Pep Total Protein Albumin LDL Cholesterol Direct Vitamin B12 Fluid Glucose Fluid Total Protein Vancomycin Trough Crossmatch See Detail 12/13/21 12/13/21 12/13/21 00:52 04:00 04:00 WBC RBC 2.73 L Hgb 7.4 L Hct 22.8 L MCV MCH 27 L MCHC RDW 20.5 H Plt Count Seg Neuts % (Manual) Lymphocytes % (Manual) Seg Neutrophils # Man Lymphocytes # (Manual) Monocytes # (Manual) PT INR D-Dimer ABG pH ABG pO2 ABG HCO3 ABG O2 Saturation ABG Base Excess ABG Hemoglobin Oxyhemoglobin Sodium 134 L Potassium Chloride 96.7 L Carbon Dioxide BUN 23 H Creatinine 0.5 L Glucose 131 H POC Glucose 131 H Lactic Acid Calcium 8.1 L Phosphorus Magnesium AST ALT Alkaline Phosphatase Lactate Dehydrogenase Troponin T C-Reactive Protein NT-Pro-B Natriuret Pep Total Protein Albumin LDL Cholesterol Direct Vitamin B12 Fluid Glucose Fluid Total Protein Vancomycin Trough Crossmatch 12/13/21 12/13/21 12/13/21 05:23 12:11 17:18 WBC RBC Hgb Hct MCV MCH MCHC RDW Plt Count Seg Neuts % (Manual) Lymphocytes % (Manual) Seg Neutrophils # Man Lymphocytes # (Manual) Monocytes # (Manual) PT INR D-Dimer ABG pH ABG pO2 ABG HCO3 ABG O2 Saturation ABG Base Excess ABG Hemoglobin Oxyhemoglobin Sodium Potassium Chloride Carbon Dioxide BUN Creatinine Glucose POC Glucose 121 H 143 H 148 H Lactic Acid Calcium Phosphorus Magnesium AST ALT Alkaline Phosphatase Lactate Dehydrogenase Troponin T C-Reactive Protein NT-Pro-B Natriuret Pep Total Protein Albumin LDL Cholesterol Direct Vitamin B12 Fluid Glucose Fluid Total Protein Vancomycin Trough Crossmatch 12/14/21 12/14/21 12/14/21 00:54 04:20 04:20 WBC RBC 2.39 L Hgb 6.5 L Hct 20.3 L MCV MCH 27 L MCHC RDW 20.3 H Plt Count Seg Neuts % (Manual) Lymphocytes % (Manual) Seg Neutrophils # Man Lymphocytes # (Manual) Monocytes # (Manual) PT INR D-Dimer ABG pH ABG pO2 ABG HCO3 ABG O2 Saturation ABG Base Excess ABG Hemoglobin Oxyhemoglobin Sodium 130 L Potassium Chloride 93.5 L Carbon Dioxide BUN 25 H Creatinine Glucose 123 H POC Glucose 123 H Lactic Acid Calcium 8.0 L Phosphorus Magnesium AST ALT Alkaline Phosphatase Lactate Dehydrogenase Troponin T C-Reactive Protein NT-Pro-B Natriuret Pep Total Protein Albumin LDL Cholesterol Direct Vitamin B12 Fluid Glucose Fluid Total Protein Vancomycin Trough Crossmatch 12/14/21 12/14/21 12/14/21 05:06 08:17 10:30 WBC RBC Hgb Hct MCV MCH MCHC RDW Plt Count Seg Neuts % (Manual) Lymphocytes % (Manual) Seg Neutrophils # Man Lymphocytes # (Manual) Monocytes # (Manual) PT INR D-Dimer ABG pH ABG pO2 ABG HCO3 ABG O2 Saturation ABG Base Excess ABG Hemoglobin Oxyhemoglobin Sodium Potassium Chloride Carbon Dioxide BUN Creatinine Glucose POC Glucose 131 H 119 H Lactic Acid Calcium Phosphorus Magnesium AST ALT Alkaline Phosphatase Lactate Dehydrogenase Troponin T C-Reactive Protein NT-Pro-B Natriuret Pep Total Protein Albumin LDL Cholesterol Direct Vitamin B12 Fluid Glucose Fluid Total Protein Vancomycin Trough Crossmatch See Detail 12/14/21 12/14/21 12/14/21 12:15 16:37 23:27 WBC RBC Hgb Hct MCV MCH MCHC RDW Plt Count Seg Neuts % (Manual) Lymphocytes % (Manual) Seg Neutrophils # Man Lymphocytes # (Manual) Monocytes # (Manual) PT INR D-Dimer ABG pH ABG pO2 ABG HCO3 ABG O2 Saturation ABG Base Excess ABG Hemoglobin Oxyhemoglobin Sodium Potassium Chloride Carbon Dioxide BUN Creatinine Glucose POC Glucose 147 H 141 H 130 H Lactic Acid Calcium Phosphorus Magnesium AST ALT Alkaline Phosphatase Lactate Dehydrogenase Troponin T C-Reactive Protein NT-Pro-B Natriuret Pep Total Protein Albumin LDL Cholesterol Direct Vitamin B12 Fluid Glucose Fluid Total Protein Vancomycin Trough Crossmatch 12/15/21 12/15/21 12/15/21 05:00 07:00 07:00 WBC 12.3 H RBC 3.27 L Hgb 8.8 L Hct 27.5 L D MCV MCH 27 L MCHC RDW 19.0 H Plt Count Seg Neuts % (Manual) Lymphocytes % (Manual) Seg Neutrophils # Man Lymphocytes # (Manual) Monocytes # (Manual) PT INR D-Dimer ABG pH ABG pO2 ABG HCO3 ABG O2 Saturation ABG Base Excess ABG Hemoglobin Oxyhemoglobin Sodium 134 L Potassium Chloride 95.7 L Carbon Dioxide BUN 28 H Creatinine Glucose 129 H POC Glucose 129 H Lactic Acid Calcium 8.2 L Phosphorus Magnesium AST ALT Alkaline Phosphatase Lactate Dehydrogenase Troponin T C-Reactive Protein NT-Pro-B Natriuret Pep Total Protein Albumin LDL Cholesterol Direct Vitamin B12 Fluid Glucose Fluid Total Protein Vancomycin Trough Crossmatch 12/15/21 12/15/21 12/15/21 11:18 16:00 23:39 WBC RBC Hgb Hct MCV MCH MCHC RDW Plt Count Seg Neuts % (Manual) Lymphocytes % (Manual) Seg Neutrophils # Man Lymphocytes # (Manual) Monocytes # (Manual) PT INR D-Dimer ABG pH ABG pO2 ABG HCO3 ABG O2 Saturation ABG Base Excess ABG Hemoglobin Oxyhemoglobin Sodium Potassium Chloride Carbon Dioxide BUN Creatinine Glucose POC Glucose 139 H 137 H 146 H Lactic Acid Calcium Phosphorus Magnesium AST ALT Alkaline Phosphatase Lactate Dehydrogenase Troponin T C-Reactive Protein NT-Pro-B Natriuret Pep Total Protein Albumin LDL Cholesterol Direct Vitamin B12 Fluid Glucose Fluid Total Protein Vancomycin Trough Crossmatch 12/16/21 12/16/21 12/16/21 05:24 10:21 10:21 WBC 15.3 H RBC 3.24 L Hgb 8.9 L Hct 27.7 L MCV MCH MCHC RDW 19.0 H Plt Count Seg Neuts % (Manual) Lymphocytes % (Manual) Seg Neutrophils # Man Lymphocytes # (Manual) Monocytes # (Manual) PT INR D-Dimer ABG pH ABG pO2 ABG HCO3 ABG O2 Saturation ABG Base Excess ABG Hemoglobin Oxyhemoglobin Sodium 131 L Potassium 3.5 L Chloride 92.7 L Carbon Dioxide BUN 36 H Creatinine Glucose 160 H POC Glucose 121 H Lactic Acid Calcium Phosphorus Magnesium 1.60 L AST ALT Alkaline Phosphatase Lactate Dehydrogenase Troponin T C-Reactive Protein NT-Pro-B Natriuret Pep Total Protein Albumin LDL Cholesterol Direct Vitamin B12 Fluid Glucose Fluid Total Protein Vancomycin Trough Crossmatch 12/16/21 12/16/21 12/16/21 11:21 18:28 20:52 WBC RBC Hgb Hct MCV MCH MCHC RDW Plt Count Seg Neuts % (Manual) Lymphocytes % (Manual) Seg Neutrophils # Man Lymphocytes # (Manual) Monocytes # (Manual) PT INR D-Dimer ABG pH 7.479 H ABG pO2 79.3 L ABG HCO3 27.3 H ABG O2 Saturation ABG Base Excess 3.6 H ABG Hemoglobin 9.1 L Oxyhemoglobin 94.9 L Sodium Potassium Chloride Carbon Dioxide BUN Creatinine Glucose POC Glucose 153 H 132 H Lactic Acid Calcium Phosphorus Magnesium AST ALT Alkaline Phosphatase Lactate Dehydrogenase Troponin T C-Reactive Protein NT-Pro-B Natriuret Pep Total Protein Albumin LDL Cholesterol Direct Vitamin B12 Fluid Glucose Fluid Total Protein Vancomycin Trough Crossmatch 12/16/21 12/17/21 12/17/21 23:30 04:25 04:25 WBC 12.3 H RBC 2.16 L Hgb 6.0 L Hct 18.1 L* D MCV MCH MCHC RDW 19.4 H Plt Count Seg Neuts % (Manual) Lymphocytes % (Manual) Seg Neutrophils # Man Lymphocytes # (Manual) Monocytes # (Manual) PT INR D-Dimer ABG pH ABG pO2 ABG HCO3 ABG O2 Saturation ABG Base Excess ABG Hemoglobin Oxyhemoglobin Sodium 132 L Potassium 3.2 L Chloride 112.0 H Carbon Dioxide BUN 32 H Creatinine Glucose 122 H POC Glucose 137 H Lactic Acid Calcium 6.8 L D Phosphorus Magnesium AST ALT Alkaline Phosphatase Lactate Dehydrogenase Troponin T C-Reactive Protein NT-Pro-B Natriuret Pep Total Protein Albumin LDL Cholesterol Direct Vitamin B12 Fluid Glucose Fluid Total Protein Vancomycin Trough Crossmatch 12/17/21 12/17/21 12/17/21 05:30 11:49 14:45 WBC RBC Hgb 9.7 L D Hct MCV MCH MCHC RDW Plt Count Seg Neuts % (Manual) Lymphocytes % (Manual) Seg Neutrophils # Man Lymphocytes # (Manual) Monocytes # (Manual) PT INR D-Dimer ABG pH ABG pO2 ABG HCO3 ABG O2 Saturation ABG Base Excess ABG Hemoglobin Oxyhemoglobin Sodium Potassium Chloride Carbon Dioxide BUN Creatinine Glucose POC Glucose 137 H 143 H Lactic Acid Calcium Phosphorus Magnesium AST ALT Alkaline Phosphatase Lactate Dehydrogenase Troponin T C-Reactive Protein NT-Pro-B Natriuret Pep Total Protein Albumin LDL Cholesterol Direct Vitamin B12 Fluid Glucose Fluid Total Protein Vancomycin Trough Crossmatch 12/17/21 12/18/21 12/18/21 17:01 05:04 05:04 WBC 13.8 H RBC 3.44 L Hgb 9.9 L Hct 28.8 L MCV MCH MCHC RDW 18.1 H Plt Count Seg Neuts % (Manual) Lymphocytes % (Manual) Seg Neutrophils # Man Lymphocytes # (Manual) Monocytes # (Manual) PT INR D-Dimer ABG pH ABG pO2 ABG HCO3 ABG O2 Saturation ABG Base Excess ABG Hemoglobin Oxyhemoglobin Sodium 132 L Potassium Chloride 97.4 L Carbon Dioxide BUN 38 H Creatinine Glucose 134 H POC Glucose 132 H Lactic Acid Calcium Phosphorus Magnesium AST ALT Alkaline Phosphatase Lactate Dehydrogenase Troponin T C-Reactive Protein NT-Pro-B Natriuret Pep Total Protein Albumin LDL Cholesterol Direct Vitamin B12 Fluid Glucose Fluid Total Protein Vancomycin Trough Crossmatch 12/18/21 12/18/21 12/18/21 05:28 10:57 16:27 WBC RBC Hgb Hct MCV MCH MCHC RDW Plt Count Seg Neuts % (Manual) Lymphocytes % (Manual) Seg Neutrophils # Man Lymphocytes # (Manual) Monocytes # (Manual) PT INR D-Dimer ABG pH ABG pO2 ABG HCO3 ABG O2 Saturation ABG Base Excess ABG Hemoglobin Oxyhemoglobin Sodium Potassium Chloride Carbon Dioxide BUN Creatinine Glucose POC Glucose 118 H 132 H 130 H Lactic Acid Calcium Phosphorus Magnesium AST ALT Alkaline Phosphatase Lactate Dehydrogenase Troponin T C-Reactive Protein NT-Pro-B Natriuret Pep Total Protein Albumin LDL Cholesterol Direct Vitamin B12 Fluid Glucose Fluid Total Protein Vancomycin Trough Crossmatch 12/19/21 12/19/2112/19/22 00:02 04:41 04:41 WBC 16.0 H RBC 3.45 L Hgb 9.7 L Hct 29.1 L MCV MCH MCHC RDW 17.8 H Plt Count Seg Neuts % (Manual) Lymphocytes % (Manual) Seg Neutrophils # Man Lymphocytes # (Manual) Monocytes # (Manual) PT INR D-Dimer ABG pH ABG pO2 ABG HCO3 ABG O2 Saturation ABG Base Excess ABG Hemoglobin Oxyhemoglobin Sodium 133 L Potassium Chloride 97.9 L Carbon Dioxide BUN 36 H Creatinine 0.5 L Glucose 126 H POC Glucose 127 H Lactic Acid Calcium 8.3 L Phosphorus Magnesium AST ALT Alkaline Phosphatase Lactate Dehydrogenase Troponin T C-Reactive Protein NT-Pro-B Natriuret Pep Total Protein Albumin LDL Cholesterol Direct Vitamin B12 Fluid Glucose Fluid Total Protein Vancomycin Trough Crossmatch 12/19/21 12/19/21 12/19/21 05:26 12:20 16:43 WBC RBC Hgb Hct MCV MCH MCHC RDW Plt Count Seg Neuts % (Manual) Lymphocytes % (Manual) Seg Neutrophils # Man Lymphocytes # (Manual) Monocytes # (Manual) PT INR D-Dimer ABG pH ABG pO2 ABG HCO3 ABG O2 Saturation ABG Base Excess ABG Hemoglobin Oxyhemoglobin Sodium Potassium Chloride Carbon Dioxide BUN Creatinine Glucose POC Glucose 119 H 145 H 126 H Lactic Acid Calcium Phosphorus Magnesium AST ALT Alkaline Phosphatase Lactate Dehydrogenase Troponin T C-Reactive Protein NT-Pro-B Natriuret Pep Total Protein Albumin LDL Cholesterol Direct Vitamin B12 Fluid Glucose Fluid Total Protein Vancomycin Trough Crossmatch 12/19/21 12/20/21 12/20/21 23:30 04:54 04:54 WBC 12.3 H RBC 3.54 L Hgb 10.0 L Hct 29.5 L MCV MCH MCHC RDW 17.8 H Plt Count Seg Neuts % (Manual) 88.0 H Lymphocytes % (Manual) 6.0 L Seg Neutrophils # Man 10.8 H Lymphocytes # (Manual) 0.7 L Monocytes # (Manual) PT INR D-Dimer ABG pH ABG pO2 ABG HCO3 ABG O2 Saturation ABG Base Excess ABG Hemoglobin Oxyhemoglobin Sodium 131 L Potassium Chloride 96.2 L Carbon Dioxide BUN 36 H Creatinine 0.5 L Glucose 130 H POC Glucose 117 H Lactic Acid Calcium Phosphorus Magnesium AST ALT Alkaline Phosphatase Lactate Dehydrogenase Troponin T C-Reactive Protein NT-Pro-B Natriuret Pep Total Protein Albumin LDL Cholesterol Direct Vitamin B12 Fluid Glucose Fluid Total Protein Vancomycin Trough Crossmatch 12/20/21 12/20/21 12/20/21 05:20 11:51 17:30 WBC RBC Hgb Hct MCV MCH MCHC RDW Plt Count Seg Neuts % (Manual) Lymphocytes % (Manual) Seg Neutrophils # Man Lymphocytes # (Manual) Monocytes # (Manual) PT INR D-Dimer ABG pH ABG pO2 ABG HCO3 ABG O2 Saturation ABG Base Excess ABG Hemoglobin Oxyhemoglobin Sodium Potassium Chloride Carbon Dioxide BUN Creatinine Glucose POC Glucose 126 H 119 H 127 H Lactic Acid Calcium Phosphorus Magnesium AST ALT Alkaline Phosphatase Lactate Dehydrogenase Troponin T C-Reactive Protein NT-Pro-B Natriuret Pep Total Protein Albumin LDL Cholesterol Direct Vitamin B12 Fluid Glucose Fluid Total Protein Vancomycin Trough Crossmatch 12/21/21 12/21/21 12/21/21 00:45 04:21 04:21 WBC RBC 3.47 L Hgb 9.4 L Hct 29.2 L MCV MCH 27 L MCHC RDW 18.1 H Plt Count Seg Neuts % (Manual) Lymphocytes % (Manual) Seg Neutrophils # Man Lymphocytes # (Manual) Monocytes # (Manual) PT INR D-Dimer ABG pH ABG pO2 ABG HCO3 ABG O2 Saturation ABG Base Excess ABG Hemoglobin Oxyhemoglobin Sodium 134 L Potassium Chloride Carbon Dioxide BUN 35 H Creatinine 0.5 L Glucose 122 H POC Glucose 125 H Lactic Acid Calcium 8.2 L Phosphorus Magnesium AST ALT Alkaline Phosphatase Lactate Dehydrogenase Troponin T C-Reactive Protein NT-Pro-B Natriuret Pep Total Protein Albumin LDL Cholesterol Direct Vitamin B12 Fluid Glucose Fluid Total Protein Vancomycin Trough Crossmatch 12/21/21 12/21/21 12/21/21 05:38 11:29 16:16 WBC RBC Hgb Hct MCV MCH MCHC RDW Plt Count Seg Neuts % (Manual) Lymphocytes % (Manual) Seg Neutrophils # Man Lymphocytes # (Manual) Monocytes # (Manual) PT INR D-Dimer ABG pH ABG pO2 ABG HCO3 ABG O2 Saturation ABG Base Excess ABG Hemoglobin Oxyhemoglobin Sodium Potassium Chloride Carbon Dioxide BUN Creatinine Glucose POC Glucose 127 H 121 H 113 H Lactic Acid Calcium Phosphorus Magnesium AST ALT Alkaline Phosphatase Lactate Dehydrogenase Troponin T C-Reactive Protein NT-Pro-B Natriuret Pep Total Protein Albumin LDL Cholesterol Direct Vitamin B12 Fluid Glucose Fluid Total Protein Vancomycin Trough Crossmatch 12/22/21 12/22/21 12/23/21 04:58 04:58 06:40 WBC 11.5 H RBC 3.43 L Hgb 9.8 L Hct 28.7 L MCV MCH MCHC RDW 18.5 H 17.9 H Plt Count Seg Neuts % (Manual) Lymphocytes % (Manual) Seg Neutrophils # Man Lymphocytes # (Manual) Monocytes # (Manual) PT INR D-Dimer ABG pH ABG pO2 ABG HCO3 ABG O2 Saturation ABG Base Excess ABG Hemoglobin Oxyhemoglobin Sodium 130 L Potassium Chloride 97.8 L Carbon Dioxide BUN 31 H Creatinine 0.5 L Glucose 122 H POC Glucose Lactic Acid Calcium 7.9 L Phosphorus Magnesium AST ALT Alkaline Phosphatase Lactate Dehydrogenase Troponin T C-Reactive Protein NT-Pro-B Natriuret Pep Total Protein Albumin LDL Cholesterol Direct Vitamin B12 Fluid Glucose Fluid Total Protein Vancomycin Trough Crossmatch 12/23/21 12/23/21 12/24/21 06:40 23:25 04:24 WBC 11.7 H RBC Hgb 9.8 L Hct MCV MCH 26 L MCHC RDW 18.1 H Plt Count Seg Neuts % (Manual) Lymphocytes % (Manual) Seg Neutrophils # Man Lymphocytes # (Manual) Monocytes # (Manual) PT INR D-Dimer ABG pH ABG pO2 ABG HCO3 ABG O2 Saturation ABG Base Excess ABG Hemoglobin Oxyhemoglobin Sodium 136 L Potassium Chloride Carbon Dioxide BUN 27 H Creatinine 0.4 L Glucose 107 H POC Glucose 110 H Lactic Acid Calcium 8.1 L Phosphorus Magnesium AST ALT Alkaline Phosphatase Lactate Dehydrogenase Troponin T C-Reactive Protein NT-Pro-B Natriuret Pep Total Protein Albumin LDL Cholesterol Direct Vitamin B12 Fluid Glucose Fluid Total Protein Vancomycin Trough Crossmatch 12/24/21 12/24/21 12/24/21 04:24 11:08 15:45 WBC RBC Hgb Hct MCV MCH MCHC RDW Plt Count Seg Neuts % (Manual) Lymphocytes % (Manual) Seg Neutrophils # Man Lymphocytes # (Manual) Monocytes # (Manual) PT INR D-Dimer ABG pH ABG pO2 ABG HCO3 ABG O2 Saturation ABG Base Excess ABG Hemoglobin Oxyhemoglobin Sodium 132 L Potassium Chloride Carbon Dioxide BUN 27 H Creatinine 0.3 L Glucose 108 H POC Glucose 116 H 107 H Lactic Acid Calcium Phosphorus Magnesium AST ALT Alkaline Phosphatase Lactate Dehydrogenase Troponin T C-Reactive Protein NT-Pro-B Natriuret Pep Total Protein Albumin LDL Cholesterol Direct Vitamin B12 Fluid Glucose Fluid Total Protein Vancomycin Trough Crossmatch 12/24/21 12/25/21 12/25/21 23:43 05:29 11:48 WBC RBC Hgb Hct MCV MCH MCHC RDW Plt Count Seg Neuts % (Manual) Lymphocytes % (Manual) Seg Neutrophils # Man Lymphocytes # (Manual) Monocytes # (Manual) PT INR D-Dimer ABG pH ABG pO2 ABG HCO3 ABG O2 Saturation ABG Base Excess ABG Hemoglobin Oxyhemoglobin Sodium Potassium Chloride Carbon Dioxide BUN Creatinine Glucose POC Glucose 123 H 107 H 119 H Lactic Acid Calcium Phosphorus Magnesium AST ALT Alkaline Phosphatase Lactate Dehydrogenase Troponin T C-Reactive Protein NT-Pro-B Natriuret Pep Total Protein Albumin LDL Cholesterol Direct Vitamin B12 Fluid Glucose Fluid Total Protein Vancomycin Trough Crossmatch 12/26/21 12/26/21 12/26/21 00:06 05:56 07:51 WBC 11.4 H RBC 3.40 L Hgb 9.3 L Hct 28.3 L MCV MCH 27 L MCHC RDW 18.2 H Plt Count Seg Neuts % (Manual) Lymphocytes % (Manual) Seg Neutrophils # Man Lymphocytes # (Manual) Monocytes # (Manual) PT INR D-Dimer ABG pH ABG pO2 ABG HCO3 ABG O2 Saturation ABG Base Excess ABG Hemoglobin Oxyhemoglobin Sodium Potassium Chloride Carbon Dioxide BUN Creatinine Glucose POC Glucose 133 H 107 H Lactic Acid Calcium Phosphorus Magnesium AST ALT Alkaline Phosphatase Lactate Dehydrogenase Troponin T C-Reactive Protein NT-Pro-B Natriuret Pep Total Protein Albumin LDL Cholesterol Direct Vitamin B12 Fluid Glucose Fluid Total Protein Vancomycin Trough Crossmatch 12/26/21 12/26/21 12/26/21 07:51 11:43 17:06 WBC RBC Hgb Hct MCV MCH MCHC RDW Plt Count Seg Neuts % (Manual) Lymphocytes % (Manual) Seg Neutrophils # Man Lymphocytes # (Manual) Monocytes # (Manual) PT INR D-Dimer ABG pH ABG pO2 ABG HCO3 ABG O2 Saturation ABG Base Excess ABG Hemoglobin Oxyhemoglobin Sodium 136 L Potassium Chloride Carbon Dioxide BUN 25 H Creatinine 0.3 L Glucose 131 H POC Glucose 119 H 128 H Lactic Acid Calcium Phosphorus Magnesium AST ALT Alkaline Phosphatase Lactate Dehydrogenase Troponin T C-Reactive Protein NT-Pro-B Natriuret Pep Total Protein Albumin LDL Cholesterol Direct Vitamin B12 Fluid Glucose Fluid Total Protein Vancomycin Trough Crossmatch 12/28/21 12/28/21 12/29/21 09:05 09:05 04:40 WBC RBC 3.19 L Hgb 8.9 L Hct 26.4 L MCV MCH 27 L MCHC RDW 18.4 H 17.9 H Plt Count Seg Neuts % (Manual) Lymphocytes % (Manual) Seg Neutrophils # Man Lymphocytes # (Manual) Monocytes # (Manual) PT INR D-Dimer ABG pH ABG pO2 ABG HCO3 ABG O2 Saturation ABG Base Excess ABG Hemoglobin Oxyhemoglobin Sodium 135 L Potassium Chloride 97.8 L Carbon Dioxide BUN 18 H Creatinine 0.3 L Glucose POC Glucose Lactic Acid Calcium Phosphorus Magnesium AST ALT Alkaline Phosphatase Lactate Dehydrogenase Troponin T C-Reactive Protein NT-Pro-B Natriuret Pep Total Protein Albumin LDL Cholesterol Direct Vitamin B12 Fluid Glucose Fluid Total Protein Vancomycin Trough Crossmatch 12/29/21 12/29/21 12/30/21 04:40 12:47 04:05 WBC RBC 3.29 L Hgb 8.7 L Hct 27.6 L MCV MCH 27 L MCHC RDW 17.6 H Plt Count Seg Neuts % (Manual) Lymphocytes % (Manual) Seg Neutrophils # Man Lymphocytes # (Manual) Monocytes # (Manual) PT INR D-Dimer ABG pH ABG pO2 ABG HCO3 ABG O2 Saturation ABG Base Excess ABG Hemoglobin Oxyhemoglobin Sodium 136 L Potassium Chloride Carbon Dioxide BUN Creatinine 0.3 L Glucose POC Glucose 67 L Lactic Acid Calcium 8.3 L Phosphorus Magnesium AST ALT Alkaline Phosphatase Lactate Dehydrogenase Troponin T C-Reactive Protein NT-Pro-B Natriuret Pep Total Protein Albumin LDL Cholesterol Direct Vitamin B12 Fluid Glucose Fluid Total Protein Vancomycin Trough Crossmatch 12/30/21 12/31/21 12/31/21 04:05 00:07 04:00 WBC RBC 3.05 L Hgb 8.5 L Hct 25.5 L MCV MCH MCHC RDW 18.2 H Plt Count Seg Neuts % (Manual) Lymphocytes % (Manual) Seg Neutrophils # Man Lymphocytes # (Manual) Monocytes # (Manual) PT INR D-Dimer ABG pH ABG pO2 ABG HCO3 ABG O2 Saturation ABG Base Excess ABG Hemoglobin Oxyhemoglobin Sodium 136 L Potassium 3.5 L Chloride Carbon Dioxide BUN Creatinine 0.4 L Glucose POC Glucose 139 H Lactic Acid Calcium Phosphorus Magnesium 1.50 L AST ALT Alkaline Phosphatase Lactate Dehydrogenase Troponin T C-Reactive Protein NT-Pro-B Natriuret Pep Total Protein Albumin LDL Cholesterol Direct Vitamin B12 Fluid Glucose Fluid Total Protein Vancomycin Trough Crossmatch 12/31/21 12/31/21 12/31/21 04:00 04:52 11:23 WBC RBC Hgb Hct MCV MCH MCHC RDW Plt Count Seg Neuts % (Manual) Lymphocytes % (Manual) Seg Neutrophils # Man Lymphocytes # (Manual) Monocytes # (Manual) PT INR D-Dimer ABG pH ABG pO2 ABG HCO3 ABG O2 Saturation ABG Base Excess ABG Hemoglobin Oxyhemoglobin Sodium Potassium Chloride Carbon Dioxide BUN 19 H Creatinine 0.4 L Glucose 116 H POC Glucose 121 H 116 H Lactic Acid Calcium Phosphorus Magnesium AST ALT Alkaline Phosphatase Lactate Dehydrogenase Troponin T C-Reactive Protein NT-Pro-B Natriuret Pep Total Protein Albumin LDL Cholesterol Direct Vitamin B12 Fluid Glucose Fluid Total Protein Vancomycin Trough Crossmatch 12/31/21 01/01/22 01/01/22 17:42 04:31 04:31 WBC RBC 2.83 L Hgb 7.7 L Hct 23.2 L MCV MCH 27 L MCHC RDW 18.3 H Plt Count Seg Neuts % (Manual) Lymphocytes % (Manual) Seg Neutrophils # Man Lymphocytes # (Manual) Monocytes # (Manual) PT INR D-Dimer ABG pH ABG pO2 ABG HCO3 ABG O2 Saturation ABG Base Excess ABG Hemoglobin Oxyhemoglobin Sodium 135 L Potassium Chloride 97.7 L Carbon Dioxide BUN 21 H Creatinine 0.5 L Glucose 127 H POC Glucose 107 H Lactic Acid Calcium 8.0 L Phosphorus Magnesium AST ALT Alkaline Phosphatase Lactate Dehydrogenase Troponin T C-Reactive Protein NT-Pro-B Natriuret Pep Total Protein Albumin LDL Cholesterol Direct Vitamin B12 Fluid Glucose Fluid Total Protein Vancomycin Trough Crossmatch 01/01/22 01/01/22 01/01/22 05:24 11:25 18:11 WBC RBC Hgb Hct MCV MCH MCHC RDW Plt Count Seg Neuts % (Manual) Lymphocytes % (Manual) Seg Neutrophils # Man Lymphocytes # (Manual) Monocytes # (Manual) PT INR D-Dimer ABG pH ABG pO2 ABG HCO3 ABG O2 Saturation ABG Base Excess ABG Hemoglobin Oxyhemoglobin Sodium Potassium Chloride Carbon Dioxide BUN Creatinine Glucose POC Glucose 124 H 140 H 144 H Lactic Acid Calcium Phosphorus Magnesium AST ALT Alkaline Phosphatase Lactate Dehydrogenase Troponin T C-Reactive Protein NT-Pro-B Natriuret Pep Total Protein Albumin LDL Cholesterol Direct Vitamin B12 Fluid Glucose Fluid Total Protein Vancomycin Trough Crossmatch 01/01/22 01/02/22 01/02/22 23:26 04:01 04:01 WBC RBC 2.57 L Hgb 7.1 L Hct 21.5 L MCV MCH MCHC RDW 18.1 H Plt Count Seg Neuts % (Manual) Lymphocytes % (Manual) Seg Neutrophils # Man Lymphocytes # (Manual) Monocytes # (Manual) PT INR D-Dimer ABG pH ABG pO2 ABG HCO3 ABG O2 Saturation ABG Base Excess ABG Hemoglobin Oxyhemoglobin Sodium 131 L Potassium 3.5 L Chloride 94.8 L Carbon Dioxide BUN 27 H Creatinine Glucose 121 H POC Glucose 121 H Lactic Acid Calcium Phosphorus Magnesium AST ALT Alkaline Phosphatase Lactate Dehydrogenase Troponin T C-Reactive Protein NT-Pro-B Natriuret Pep Total Protein Albumin LDL Cholesterol Direct Vitamin B12 Fluid Glucose Fluid Total Protein Vancomycin Trough Crossmatch 01/02/22 01/02/22 01/02/22 05:30 11:10 16:08 WBC RBC Hgb Hct MCV MCH MCHC RDW Plt Count Seg Neuts % (Manual) Lymphocytes % (Manual) Seg Neutrophils # Man Lymphocytes # (Manual) Monocytes # (Manual) PT INR D-Dimer ABG pH ABG pO2 ABG HCO3 ABG O2 Saturation ABG Base Excess ABG Hemoglobin Oxyhemoglobin Sodium Potassium Chloride Carbon Dioxide BUN Creatinine Glucose POC Glucose 124 H 117 H 130 H Lactic Acid Calcium Phosphorus Magnesium AST ALT Alkaline Phosphatase Lactate Dehydrogenase Troponin T C-Reactive Protein NT-Pro-B Natriuret Pep Total Protein Albumin LDL Cholesterol Direct Vitamin B12 Fluid Glucose Fluid Total Protein Vancomycin Trough Crossmatch 01/02/22 01/02/22 01/03/22 17:30 23:26 04:53 WBC RBC 2.82 L Hgb 7.7 L Hct 23.4 L MCV MCH 27 L MCHC RDW 18.0 H Plt Count Seg Neuts % (Manual) Lymphocytes % (Manual) Seg Neutrophils # Man Lymphocytes # (Manual) Monocytes # (Manual) PT INR D-Dimer ABG pH ABG pO2 ABG HCO3 ABG O2 Saturation ABG Base Excess ABG Hemoglobin Oxyhemoglobin Sodium Potassium Chloride Carbon Dioxide BUN Creatinine Glucose POC Glucose 114 H Lactic Acid Calcium Phosphorus Magnesium AST ALT Alkaline Phosphatase Lactate Dehydrogenase Troponin T C-Reactive Protein NT-Pro-B Natriuret Pep Total Protein Albumin LDL Cholesterol Direct Vitamin B12 Fluid Glucose Fluid Total Protein Vancomycin Trough 22.8 H Crossmatch 01/03/22 01/03/22 01/03/22 04:53 06:23 17:35 WBC RBC Hgb Hct MCV MCH MCHC RDW Plt Count Seg Neuts % (Manual) Lymphocytes % (Manual) Seg Neutrophils # Man Lymphocytes # (Manual) Monocytes # (Manual) PT INR D-Dimer ABG pH ABG pO2 ABG HCO3 ABG O2 Saturation ABG Base Excess ABG Hemoglobin Oxyhemoglobin Sodium 133 L Potassium Chloride 96.2 L Carbon Dioxide BUN 30 H Creatinine Glucose 107 H POC Glucose 122 H 107 H Lactic Acid Calcium Phosphorus Magnesium AST ALT Alkaline Phosphatase Lactate Dehydrogenase Troponin T C-Reactive Protein NT-Pro-B Natriuret Pep Total Protein Albumin LDL Cholesterol Direct Vitamin B12 Fluid Glucose Fluid Total Protein Vancomycin Trough Crossmatch 01/04/22 01/04/22 01/04/22 04:00 12:32 16:45 WBC RBC Hgb Hct MCV MCH MCHC RDW Plt Count Seg Neuts % (Manual) Lymphocytes % (Manual) Seg Neutrophils # Man Lymphocytes # (Manual) Monocytes # (Manual) PT INR D-Dimer ABG pH ABG pO2 ABG HCO3 ABG O2 Saturation ABG Base Excess ABG Hemoglobin Oxyhemoglobin Sodium 132 L Potassium Chloride 92.8 L Carbon Dioxide BUN 30 H Creatinine Glucose 115 H POC Glucose 111 H 111 H Lactic Acid Calcium Phosphorus Magnesium 1.60 L AST ALT Alkaline Phosphatase Lactate Dehydrogenase Troponin T C-Reactive Protein NT-Pro-B Natriuret Pep Total Protein Albumin LDL Cholesterol Direct Vitamin B12 Fluid Glucose Fluid Total Protein Vancomycin Trough Crossmatch 01/05/22 01/05/22 01/05/22 04:30 04:30 17:04 WBC RBC 3.11 L Hgb 8.4 L Hct 25.5 L MCV MCH 27 L MCHC RDW 17.6 H Plt Count Seg Neuts % (Manual) Lymphocytes % (Manual) Seg Neutrophils # Man Lymphocytes # (Manual) Monocytes # (Manual) PT INR D-Dimer ABG pH ABG pO2 ABG HCO3 ABG O2 Saturation ABG Base Excess ABG Hemoglobin Oxyhemoglobin Sodium 135 L Potassium Chloride 93.6 L Carbon Dioxide BUN 29 H Creatinine Glucose POC Glucose 67 L Lactic Acid Calcium Phosphorus Magnesium AST ALT Alkaline Phosphatase Lactate Dehydrogenase Troponin T C-Reactive Protein NT-Pro-B Natriuret Pep Total Protein Albumin LDL Cholesterol Direct Vitamin B12 Fluid Glucose Fluid Total Protein Vancomycin Trough Crossmatch 01/05/22 01/06/22 01/06/22 23:27 04:06 04:06 WBC RBC 2.89 L Hgb 7.7 L Hct 23.8 L MCV MCH 27 L MCHC RDW 18.0 H Plt Count Seg Neuts % (Manual) Lymphocytes % (Manual) Seg Neutrophils # Man Lymphocytes # (Manual) Monocytes # (Manual) PT 16.9 H INR 1.23 H D-Dimer ABG pH ABG pO2 ABG HCO3 ABG O2 Saturation ABG Base Excess ABG Hemoglobin Oxyhemoglobin Sodium Potassium Chloride Carbon Dioxide BUN Creatinine Glucose POC Glucose 110 H Lactic Acid Calcium Phosphorus Magnesium AST ALT Alkaline Phosphatase Lactate Dehydrogenase Troponin T C-Reactive Protein NT-Pro-B Natriuret Pep Total Protein Albumin LDL Cholesterol Direct Vitamin B12 Fluid Glucose Fluid Total Protein Vancomycin Trough Crossmatch 01/06/22 01/06/22 01/06/22 04:06 13:40 23:41 WBC RBC Hgb Hct MCV MCH MCHC RDW Plt Count Seg Neuts % (Manual) Lymphocytes % (Manual) Seg Neutrophils # Man Lymphocytes # (Manual) Monocytes # (Manual) PT INR D-Dimer ABG pH ABG pO2 ABG HCO3 ABG O2 Saturation ABG Base Excess ABG Hemoglobin Oxyhemoglobin Sodium 132 L Potassium Chloride 92.3 L Carbon Dioxide BUN 26 H Creatinine Glucose 111 H POC Glucose 120 H Lactic Acid Calcium Phosphorus Magnesium AST ALT Alkaline Phosphatase Lactate Dehydrogenase Troponin T C-Reactive Protein NT-Pro-B Natriuret Pep Total Protein Albumin LDL Cholesterol Direct Vitamin B12 Fluid Glucose 96 H Fluid Total Protein < 3.0 L Vancomycin Trough Crossmatch 01/07/22 01/07/22 01/07/22 05:20 11:30 17:00 WBC RBC Hgb Hct MCV MCH MCHC RDW Plt Count Seg Neuts % (Manual) Lymphocytes % (Manual) Seg Neutrophils # Man Lymphocytes # (Manual) Monocytes # (Manual) PT INR D-Dimer ABG pH ABG pO2 ABG HCO3 ABG O2 Saturation ABG Base Excess ABG Hemoglobin Oxyhemoglobin Sodium Potassium Chloride Carbon Dioxide BUN Creatinine Glucose POC Glucose 111 H 113 H 121 H Lactic Acid Calcium Phosphorus Magnesium AST ALT Alkaline Phosphatase Lactate Dehydrogenase Troponin T C-Reactive Protein NT-Pro-B Natriuret Pep Total Protein Albumin LDL Cholesterol Direct Vitamin B12 Fluid Glucose Fluid Total Protein Vancomycin Trough Crossmatch 01/07/22 01/08/22 01/08/22 23:41 11:26 16:23 WBC RBC Hgb Hct MCV MCH MCHC RDW Plt Count Seg Neuts % (Manual) Lymphocytes % (Manual) Seg Neutrophils # Man Lymphocytes # (Manual) Monocytes # (Manual) PT INR D-Dimer ABG pH ABG pO2 ABG HCO3 ABG O2 Saturation ABG Base Excess ABG Hemoglobin Oxyhemoglobin Sodium Potassium Chloride Carbon Dioxide BUN Creatinine Glucose POC Glucose 110 H 129 H 118 H Lactic Acid Calcium Phosphorus Magnesium AST ALT Alkaline Phosphatase Lactate Dehydrogenase Troponin T C-Reactive Protein NT-Pro-B Natriuret Pep Total Protein Albumin LDL Cholesterol Direct Vitamin B12 Fluid Glucose Fluid Total Protein Vancomycin Trough Crossmatch 01/09/22 01/10/22 01/10/22 18:13 00:27 04:00 WBC RBC Hgb Hct MCV MCH MCHC RDW Plt Count Seg Neuts % (Manual) Lymphocytes % (Manual) Seg Neutrophils # Man Lymphocytes # (Manual) Monocytes # (Manual) PT INR D-Dimer ABG pH ABG pO2 ABG HCO3 ABG O2 Saturation ABG Base Excess ABG Hemoglobin Oxyhemoglobin Sodium 133 L Potassium Chloride 92.6 L Carbon Dioxide 31 H BUN 29 H Creatinine 0.5 L Glucose 115 H POC Glucose 118 H 111 H Lactic Acid Calcium Phosphorus Magnesium AST ALT Alkaline Phosphatase Lactate Dehydrogenase Troponin T C-Reactive Protein NT-Pro-B Natriuret Pep Total Protein Albumin LDL Cholesterol Direct Vitamin B12 Fluid Glucose Fluid Total Protein Vancomycin Trough Crossmatch 01/10/22 01/11/22 01/11/22 05:47 05:10 11:14 WBC RBC Hgb Hct MCV MCH MCHC RDW Plt Count Seg Neuts % (Manual) Lymphocytes % (Manual) Seg Neutrophils # Man Lymphocytes # (Manual) Monocytes # (Manual) PT INR D-Dimer ABG pH ABG pO2 ABG HCO3 ABG O2 Saturation ABG Base Excess ABG Hemoglobin Oxyhemoglobin Sodium Potassium Chloride Carbon Dioxide BUN Creatinine Glucose POC Glucose 106 H 118 H 136 H Lactic Acid Calcium Phosphorus Magnesium AST ALT Alkaline Phosphatase Lactate Dehydrogenase Troponin T C-Reactive Protein NT-Pro-B Natriuret Pep Total Protein Albumin LDL Cholesterol Direct Vitamin B12 Fluid Glucose Fluid Total Protein Vancomycin Trough Crossmatch 01/11/22 01/11/22 01/12/22 17:14 23:52 05:39 WBC RBC Hgb Hct MCV MCH MCHC RDW Plt Count Seg Neuts % (Manual) Lymphocytes % (Manual) Seg Neutrophils # Man Lymphocytes # (Manual) Monocytes # (Manual) PT INR D-Dimer ABG pH ABG pO2 ABG HCO3 ABG O2 Saturation ABG Base Excess ABG Hemoglobin Oxyhemoglobin Sodium Potassium Chloride Carbon Dioxide BUN Creatinine Glucose POC Glucose 117 H 110 H 110 H Lactic Acid Calcium Phosphorus Magnesium AST ALT Alkaline Phosphatase Lactate Dehydrogenase Troponin T C-Reactive Protein NT-Pro-B Natriuret Pep Total Protein Albumin LDL Cholesterol Direct Vitamin B12 Fluid Glucose Fluid Total Protein Vancomycin Trough Crossmatch 01/13/22 01/13/22 01/14/22 11:15 17:21 05:33 WBC RBC Hgb Hct MCV MCH MCHC RDW Plt Count Seg Neuts % (Manual) Lymphocytes % (Manual) Seg Neutrophils # Man Lymphocytes # (Manual) Monocytes # (Manual) PT INR D-Dimer ABG pH ABG pO2 ABG HCO3 ABG O2 Saturation ABG Base Excess ABG Hemoglobin Oxyhemoglobin Sodium Potassium Chloride Carbon Dioxide BUN Creatinine Glucose POC Glucose 113 H 121 H 136 H Lactic Acid Calcium Phosphorus Magnesium AST ALT Alkaline Phosphatase Lactate Dehydrogenase Troponin T C-Reactive Protein NT-Pro-B Natriuret Pep Total Protein Albumin LDL Cholesterol Direct Vitamin B12 Fluid Glucose Fluid Total Protein Vancomycin Trough Crossmatch 01/14/22 01/15/22 01/15/22 11:28 00:13 05:24 WBC RBC Hgb Hct MCV MCH MCHC RDW Plt Count Seg Neuts % (Manual) Lymphocytes % (Manual) Seg Neutrophils # Man Lymphocytes # (Manual) Monocytes # (Manual) PT INR D-Dimer ABG pH ABG pO2 ABG HCO3 ABG O2 Saturation ABG Base Excess ABG Hemoglobin Oxyhemoglobin Sodium Potassium Chloride Carbon Dioxide BUN Creatinine Glucose POC Glucose 117 H 109 H 117 H Lactic Acid Calcium Phosphorus Magnesium AST ALT Alkaline Phosphatase Lactate Dehydrogenase Troponin T C-Reactive Protein NT-Pro-B Natriuret Pep Total Protein Albumin LDL Cholesterol Direct Vitamin B12 Fluid Glucose Fluid Total Protein Vancomycin Trough Crossmatch 01/15/22 01/15/22 01/15/22 11:38 14:36 17:05 WBC RBC 3.11 L Hgb 8.4 L Hct 25.7 L MCV MCH 27 L MCHC RDW 17.2 H Plt Count Seg Neuts % (Manual) 82.0 H Lymphocytes % (Manual) 11.0 L Seg Neutrophils # Man 8.8 H Lymphocytes # (Manual) Monocytes # (Manual) PT INR D-Dimer ABG pH ABG pO2 ABG HCO3 ABG O2 Saturation ABG Base Excess ABG Hemoglobin Oxyhemoglobin Sodium Potassium Chloride Carbon Dioxide BUN Creatinine Glucose POC Glucose 107 H 108 H Lactic Acid Calcium Phosphorus Magnesium AST ALT Alkaline Phosphatase Lactate Dehydrogenase Troponin T C-Reactive Protein NT-Pro-B Natriuret Pep Total Protein Albumin LDL Cholesterol Direct Vitamin B12 Fluid Glucose Fluid Total Protein Vancomycin Trough Crossmatch 01/15/22 01/15/22 01/15/22 21:07 Unknown Unknown WBC RBC 2.97 L Hgb 8.0 L Hct 24.3 L MCV MCH 27 L MCHC RDW 17.2 H Plt Count Seg Neuts % (Manual) Lymphocytes % (Manual) Seg Neutrophils # Man Lymphocytes # (Manual) Monocytes # (Manual) PT INR D-Dimer ABG pH ABG pO2 ABG HCO3 ABG O2 Saturation ABG Base Excess ABG Hemoglobin Oxyhemoglobin Sodium 131 L Potassium Chloride 93.1 L Carbon Dioxide BUN 27 H Creatinine Glucose 110 H POC Glucose Lactic Acid Calcium 8.3 L Phosphorus Magnesium AST ALT Alkaline Phosphatase Lactate Dehydrogenase Troponin T 0.088 H C-Reactive Protein NT-Pro-B Natriuret Pep Total Protein Albumin LDL Cholesterol Direct 44 L Vitamin B12 Fluid Glucose Fluid Total Protein Vancomycin Trough Crossmatch 01/15/22 01/16/22 01/16/22 Unknown 05:21 12:59 WBC RBC Hgb Hct MCV MCH MCHC RDW Plt Count Seg Neuts % (Manual) Lymphocytes % (Manual) Seg Neutrophils # Man Lymphocytes # (Manual) Monocytes # (Manual) PT INR D-Dimer ABG pH ABG pO2 ABG HCO3 ABG O2 Saturation ABG Base Excess ABG Hemoglobin Oxyhemoglobin Sodium 134 L 134 L Potassium 3.4 L Chloride 93.9 L 95.4 L Carbon Dioxide BUN 26 H 24 H Creatinine Glucose 168 H POC Glucose 159 H Lactic Acid Calcium 8.1 L Phosphorus Magnesium AST ALT Alkaline Phosphatase Lactate Dehydrogenase Troponin T 0.078 H C-Reactive Protein NT-Pro-B Natriuret Pep Total Protein Albumin LDL Cholesterol Direct Vitamin B12 Fluid Glucose Fluid Total Protein Vancomycin Trough Crossmatch 01/16/22 01/17/22 01/17/22 23:22 05:20 14:24 WBC RBC Hgb Hct MCV MCH MCHC RDW Plt Count Seg Neuts % (Manual) Lymphocytes % (Manual) Seg Neutrophils # Man Lymphocytes # (Manual) Monocytes # (Manual) PT INR D-Dimer ABG pH ABG pO2 55.0 L ABG HCO3 29.5 H ABG O2 Saturation 87.8 L ABG Base Excess 4.5 H ABG Hemoglobin 9.3 L Oxyhemoglobin 86.1 L Sodium Potassium Chloride Carbon Dioxide BUN Creatinine Glucose POC Glucose 113 H 111 H Lactic Acid Calcium Phosphorus Magnesium AST ALT Alkaline Phosphatase Lactate Dehydrogenase Troponin T C-Reactive Protein NT-Pro-B Natriuret Pep Total Protein Albumin LDL Cholesterol Direct Vitamin B12 Fluid Glucose Fluid Total Protein Vancomycin Trough Crossmatch 01/17/22 01/18/22 01/18/22 17:14 05:39 11:53 WBC RBC Hgb Hct MCV MCH MCHC RDW Plt Count Seg Neuts % (Manual) Lymphocytes % (Manual) Seg Neutrophils # Man Lymphocytes # (Manual) Monocytes # (Manual) PT INR D-Dimer ABG pH ABG pO2 ABG HCO3 ABG O2 Saturation ABG Base Excess ABG Hemoglobin Oxyhemoglobin Sodium Potassium Chloride Carbon Dioxide BUN Creatinine Glucose POC Glucose 126 H 108 H 113 H Lactic Acid Calcium Phosphorus Magnesium AST ALT Alkaline Phosphatase Lactate Dehydrogenase Troponin T C-Reactive Protein NT-Pro-B Natriuret Pep Total Protein Albumin LDL Cholesterol Direct Vitamin B12 Fluid Glucose Fluid Total Protein Vancomycin Trough Crossmatch 01/18/22 01/19/22 01/19/22 12:50 00:04 04:50 WBC RBC 3.14 L Hgb 8.4 L Hct 26.0 L MCV MCH 27 L MCHC RDW 18.2 H Plt Count Seg Neuts % (Manual) Lymphocytes % (Manual) Seg Neutrophils # Man Lymphocytes # (Manual) Monocytes # (Manual) PT INR D-Dimer ABG pH ABG pO2 112.3 H ABG HCO3 30.9 H ABG O2 Saturation ABG Base Excess 5.8 H ABG Hemoglobin 8.8 L Oxyhemoglobin Sodium Potassium Chloride Carbon Dioxide BUN Creatinine Glucose POC Glucose 115 H Lactic Acid Calcium Phosphorus Magnesium AST ALT Alkaline Phosphatase Lactate Dehydrogenase Troponin T C-Reactive Protein NT-Pro-B Natriuret Pep Total Protein Albumin LDL Cholesterol Direct Vitamin B12 Fluid Glucose Fluid Total Protein Vancomycin Trough Crossmatch 01/19/22 01/19/22 01/19/22 04:50 11:51 20:45 WBC RBC Hgb Hct MCV MCH MCHC RDW Plt Count Seg Neuts % (Manual) Lymphocytes % (Manual) Seg Neutrophils # Man Lymphocytes # (Manual) Monocytes # (Manual) PT INR D-Dimer ABG pH ABG pO2 95.2 H ABG HCO3 29.8 H ABG O2 Saturation ABG Base Excess 4.3 H ABG Hemoglobin 8.0 L Oxyhemoglobin Sodium 134 L Potassium Chloride 95.4 L Carbon Dioxide BUN 28 H Creatinine Glucose POC Glucose 111 H Lactic Acid Calcium Phosphorus Magnesium AST ALT Alkaline Phosphatase Lactate Dehydrogenase Troponin T C-Reactive Protein NT-Pro-B Natriuret Pep Total Protein Albumin LDL Cholesterol Direct Vitamin B12 Fluid Glucose Fluid Total Protein Vancomycin Trough Crossmatch 01/20/22 11:43 WBC RBC Hgb Hct MCV MCH MCHC RDW Plt Count Seg Neuts % (Manual) Lymphocytes % (Manual) Seg Neutrophils # Man Lymphocytes # (Manual) Monocytes # (Manual) PT INR D-Dimer ABG pH ABG pO2 ABG HCO3 ABG O2 Saturation ABG Base Excess ABG Hemoglobin Oxyhemoglobin Sodium Potassium Chloride Carbon Dioxide BUN Creatinine Glucose POC Glucose 118 H Lactic Acid Calcium Phosphorus Magnesium AST ALT Alkaline Phosphatase Lactate Dehydrogenase Troponin T C-Reactive Protein NT-Pro-B Natriuret Pep Total Protein Albumin LDL Cholesterol Direct Vitamin B12 Fluid Glucose Fluid Total Protein Vancomycin Trough Crossmatch Allied health notes reviewed: nursing
--- NOTE | 2022-01-21 12:16 | Progress Note ---
Assessment and Plan Assessment and plan: This is an 82-year-old female with DM, HTN , CHB s/p PPM, CAD s/p PCI and arthritis who presented to the emergency department on 11/04 for shortness of breath ongoing for the past 3 days, cough and according to family a fever of 102.2. Upon arrival of EMS patient was found to be tachypneic and hypoxic with SPO2 of 76% on room air which later improved to 88% on nonrebreather. Work-up in the emergency department included a CXR which showed bilateral interstitial pulmonary edema with bilateral pleural effusions and bibasilar opacities, leukocytosis and anemia with a hemoglobin of 6.1. Patient was admitted to the hospitalist service with acute anemia, acute hypoxic respiratory failure, bilateral pneumonia and COVID-19 PUI with consults to pulmonology, infectious disease and later cardiology. Patient was eventually intubated in the emergency department on 11/06. Hospital Course to date: 11/04/2021: Empiric therapy with iv levaquin/vancomycin. COVID PCR pending. Will consult ID. PCCM consulted, will follow recs. Hypotensive this AM, ordered bolus and fluids at 150 cc/hr. May require pressor support if bp does not improve. 11/05/2021: GBS on bcx +, currently on rocephin IV. Currently on bipap due to respiratory distress overnight. Worsening BL opacities on CXR. May be volume overload vs pneumonia. Unfortunately bp too low for lasix at this point. WIll continue levophed and bipap. Once able to tolerate, may do trial of albumin/lasix. Call attempt made to Niraj, no response. Will try again tomorrow to update. 11/06/2021: Decompensated overnight requiring intubation. CXR shows worsening interstitial infiltrates. Currenlty on dopamine, levophed, vasopressin. PICC line ordered. Advised RN to place gamble for I/O monitoring. Would benefit from diuresis but very volume overloaded. Prognosis guarded 11/08: Off sedation this am, remains unresponsive only grimace to pain. Hold all sedatives agents for now, patient is off pressors this am. Hypernatremia from today's lab- D5W X1bag, and low K repleted, repeat lab in the am. Severe constipation also noted from KUB, BR added. 11/09: Sudden SPO2 drop in the 60s this am. Patient was manually bagged and deep suctioned. Patient is currently stable on the vent, repeat CXR with no significant change. D/w CCM Mucomyst and brochodilator added. Patient mentation is unchanged, continue to hold off on sedative agents. Neurology consulted. 11/10: Acute DVT noted on bilateral lower extremity Doppler ultrasound therefore she was started on Lovenox treatment dose. Failed SBT. Hypernatremia and hyperchloremia noted, free water flush adjusted. 11/11: Patient noted to be febrile with increasing of the cytosis, UA/BC sent and CXR ordered. ID escalated antibiotics to cefepime. CXR demonstrated mucous plug, bedside bronchoscopy was performed and O ETT was changed over bougie from 6 cm to 7.5. Patient was noted to have a pneumothorax postprocedure and chest tube was placed. Family updated by [facility]. Free water flush increased and will add Jaswant supplementation. 11/12: Patient not noted to follow commands, hypernatremia worsen/persist, increasing free water flush, potassium and magnesium and phosphorus repleted. Hemoglobin noted to be 7./24.5 from 7.03/12 yesterday. We will continue to trend and monitor. Vent changes per [facility]. Repeat CXR showed no residual pneumothorax. Consider waterseal tomorrow. Given persistent leukocytosis antibiotics escalated to cefepime per ID. 11/13: Remains on cefepime and vancomycin, vent changes per [facility]. Anemia noted and given 1 unit PRBC. And beta-charleen held in setting of Levophed drip infusing. Remains on fentanyl drip. 11/14: Patient put on CPAP trial by [facility], will continue chest tube until after extubation. Will rest on assist control. CT brain was cancelled by agricultural commodities grader and reordered. 11/15: Patient removed chest tube overnight. Will obtain cxr. remains on low dose levo. CTH completed with no acute findings. RT to place on CPAP. 11/16: Hypernatremia/hyperchloremia noted on the increase of day water flushes. Anemia noted and ordered PRBC. asked RT to place on cpap but not done yet 11/17: Patient remains on the vent, awake and following commands. H&H stable s/p 2units PRBCs. GI on consult, no intervention at this time. Will continue protonix gtt and serial H&H Q6hrs. Keep patient NPO for now, D5w added for hypernatremia and NPO status. Plan for IVC filter placement today by Vascular. 11/18: Patient is s/p IVC filter. H&H continue to trend down, hbg 6.1 this am, 1 unit of PRBCs ordered. Plan for possible EGD today by GI. Keep patient NPO, continue PPI drip and serial H&H Q6hrs. Electrolytes repleted, repeat lab in the am 11/19: S/p EGD- larger duodenal ulcer noted, see operative note. GI recommendations noted also noted. H&H stable this am. Keep patient on protonix gtt for now. Will keep patient NPO, continue IVF and serial H&H for now. Electrolytes repleted, repeat labs in the am 11/20: Very agitated and restless this am, fentanyl gtt resumed. Patient remains on protonix gtt, H&H remains stable. Will switch protonix gtt to IV BID, continue carafate and okay to resume meds at this time. Will F/u with GI to see if TF can be resumed. Gamble was reinserted overnight for retention. Electrolytes repleted, repeat in the am. Plan for possible PST today for possible extubation per CCM. 11/21: Patient is now on seroquel and patient's home buspar resumed. Patient more calm this morning, fentanyl gtt is off. H&H remains stable and patient is tolerating TF. Patient had a runs of Vtach/PVCs this am, BB added per Cardio. Continue daily PS and wean trial for possible extubation. 11/22: Back on fentanyl gtt overnight , RASS o to -1, following commands. Patient failed PST this am due to increased work of breathing and low SPO2, ABG pending. Patient is also with worsen pitting edema, lasix is still on hold. Will discuss with cardio and CCM to possibly resume lasix. 11/23: MARIA DEL CARMEN overnight. Patient failed PST again this am. Per CCM plan for possible trach and PEG, hold off on IV lasix for now. General surgery consulted and family is aware of possible Trach and PEG. 11/24: Trach/PEG pending this week, continue SBT/SAT as tolerated. No acute events reported overnight. 11/25: Patient was n.p.o. overnight and will remain n.p.o. tonight for trach/PEG tomorrow morning. She failed to support trial again. KUB obtained due to distended belly. 11/26: Patient scheduled for tracheostomy and PEG tube placement today, has been n.p.o. since midnight. No acute events reported overnight. [facility] ordered simethicone scheduled. 11/27: No acute events reported overnight, patient received trach/PEG yesterday. Has been on feedings since last night. Still awaiting LTAC placement. 11/28: Patient magnesium repleted, repeat a.m. labs, SBT 11/29: Patient complains of chest pain but ECG obtained which showed no acute findings, ordered troponin. Patient failed CPAP yesterday and was trialed again today. levophed was restarted but will aggressively wean 11/30: Patient failed SBT. Continue supportive care. Started gabapentin today 12/01: MARIA DEL CARMEN overnight. Continue daily PST. Case management to arrange possible placement 12/02: Report of dark stools overnight, patient is hemodynamically stable. H&H stable, patient is on PPI. Will continue to trend H&H. Continue daily PST as tolerated. Awaiting LTAC vs SNF placement. 12/03: Hypotensive overnight, requiring low dose pressors. S/p X3 days of gentle diurese. Will continue to monitor, wean off pressors as tolerated for MAP of 65. Patient Failed PST yesterday, case management to follow up with insurance for po ssible LTAC placement. Continue daily PST as tolerated. PT eval and treat ordered. 12/04: Increased agitation and anxiety overnight, remains on buspar and seroquel, trazadone added to promote rest. Patient is now working with PT, keep patient engage and awake during the day so she can rest at night. No BM for over 5 days, BR was adjusted. Patient did not tolerate PST again yesterday, continue daily PST as tolerated. Continue to titrate pressor for MAP above 65. Pending possible LTAC placement, case management to arrange. 12/05: Still not getting much rest overnight, will add melatonin for sleep. Continue to engage patient during the day and promote rest at night. TF was held due to concern for possible bleeding, H&H remains stable and stools normal this am. Resume TF and continue PPI and carafate. Remains on low dose levophed, titrate as tolerated. Continue daily PST. Possible LTAC placement, awaiting approval. 12/06: MARIA DEL CARMEN overnight. Patient rested overnight. Continue supportive measures. Daily PST as tolerated. Awaiting possible LTAC placement 12/07: MARIA DEL CARMEN overnight. Plan for Tpiece trial today. Continue current supportive measures. Possible LTAC placement 12/08: Patient placed on pressure support trial again today, started on Xanax, no acute events reported overnight. Awaiting insurance approval for LTAC. 12/09: Levophed discontinued, LTAC transfer denied, started on midodrine and Lasix, ultrasound chest pending, started on Xanax 0.[address] De León updated family at bedside today. Started on Dilaudid every 3 hours as needed. 12/10: Patient placed on CPAP trial this morning, no acute events reported overnight. Will order ultrasound-guided thoracentesis. 12/11: Patient had a thoracentesis today, will decrease Xanax dosage and continue midodrine and diuresing. Patient failed CPAP today. 12/12: Patient not tolerate CPAP trials today, no acute events reported overnight 12/13: No acute events overnight. continue PSV trials as tolerated. Daughter up dated at bedside 12/14: Patient noted to be anemic today, ordered gastric occult. Patient seems to be oversedated therefore Xanax changed to as needed and fentanyl patch discontinued. We will continue to monitor hyponatremia. 12/15: MARIA DEL CARMEN overnight. s/p 1unit of PRBCs, H&H stable this am, no signs of any active bleeding. Continue daily PST as tolerated. Awaiting placement. 12/16: Hypertensive this am, Midodrine decreased. Continue daily PST. MARIA DEL CARMEN overnight 12/17: Patient Hgb dropped to 6 this am, no s/s of any active bleeding, VSS. Patient received 1unit of PRBC, will continue to trend H&H. Patient was pancultured and back on IV Abx due to persistent fevers yesterday. ID is also back on the case. Continue IV Abx per ID and f/u on cultures data for sensitivity. Patient also failed PST yesterday, continue daily PST as tolerated. Electrolytes repleted, repeat labs in the am. 12/18: Patient blood cultures is growing GPC 4 out 4 bottles. PICC line D/Rivas, patient is already on IV Abx-cefepine and Vanc and ID is following. Patient remains hemodynamically stable. Daily PST as tolerated adn PRN Benzo for anxiety. 12/19: MARIA DEL CARMEN overnight. Culture data noted, continue IV Abx per ID. Orders placed for repeat Bculture. Gamble D/C overnight, patient is voiding. Check bladder scan as needed for retention. Patient failed PST again today. Continue daily PST as tolerated. 12/20: Fevers improved, Cultures +MRSA, on Vanco per ID. Repeat 2D Echo to r/o endocarditis. Patient continue to fail PST, PEEP increased to 8 today. Continue pulmonary hygiene and vent wean per CCM. Sodium tab added for hyponatremia. 12/22: Patient on pressure support trial for approximately 4 hours today, midodrine dosage increased due to hypotension. Lasix discontinued. 12/23: Started on a.m. Seroquel dose, midodrine increased to 10 mg 3 times daily, 500 mL normal saline bolus. 12/24: Seroquel dose changed (25 every morning, 75 nightly). updated at bedside by Dr. De León. CPAP trials as tolerated. Continue vancomycin. Awaiting placement. 12/25: Continue CPAP as tolerated, added gasx for distention. Continue supportive care 12/26: Patient failed PSV this AM. no acute events overnight. 12/27: GI re-consulted due to abdominal distention. No acute events reported overnight. CPAP trials as tolerated. Dr. Mckenna will get a KUB to rule out possible obstruction. 12/28: KUB shows no acute process, CXR shows improvement. CPAP trials as tolerated. 12/29: CT Abd/pelvis noted with moderated bilateral pleural effusion, anasarca, and ascites. X1dose of IV lasix administered. D/w CCM and GI orders plan for thora and paracentesis by IR. Will also start patient on aldactone Qday. Patient is tolerating trickle feeds this am, continue TF and BR adjusted for constipation. Plan of care was discussed with patient and her at the bedside. Thorough discussion on patient's overall poor prognosis and that pat ient will most likely be vent dependent. Patient's voiced understanding of the info given. All questions and concerns were voiced at this time. 12/30: Patient did not tolerate thoracentesis in IR yesterday due to change in LOC and hypoxia. Plan for possible bedside thoracentesis and paracentesis today. Patient remains afebrile. Patient required oysterman IV abx therapy [id number] left, orders placed for a PICC. Patient remains with sign. Piting edema and anasarca, X1 does of PO Zaroxolyn and 2m of IV lasix given. Electrolytes repleted, repeat lab in the am. 12/31: Tolerated Rt. thoracentesis at the bedside yesterday, 1.4L removed. Patient remains stable on the vent this am, tolerating CPAP today PS dropped to 14. Recent CXR noted, left pleural effusion improved. Patient tolerated gentle diurese yesterday, good urine output reported. D/w CCM hold off on Left thoracentesis today, continue PO Aldactone and additonal zaroxolyn and IV lasix again today. F/u CXR in the am. 01/01: This am CXR noted with worsening bilateral pleural effusion. Patient is stable and tolerating PST this am, however PS is back up to 20 this am. BP is soft this am will hold off on IV diuretic for today, continue PO Aldactone. D/w CCM continue gentle diurese as tolerated. Will reassess in the am. Continue support care. 01/02: MARIA DEL CARMEN overnight. VSS this am, tolerating PST. X1dose of 25% IV Albumin following with 20mg IV Lasix today. Continue daily gentle diurese if hemodynamics tolerate it. Continue to monitor and replace electrolytes as needed 01/03: Abdominal distention and vomiting overnight, 600cc of gastric residual removed, TF held. KUB with no acute abnormality. Reglan added X2days, resume TF, and continue BR. Patient is tolerating PST this am. Hemodynamics remains stable, will continue gentle IV diurese. close monitoring to renal function and electrolytes. 01/04: Tolerating TF, nausea/vomiting resolved, last BM on 01/03. Continue Reglan X1 more day. Patient continue to tolerate PST. D/W CCM continue gentle diurese. F/U CXR in the am. Possible US thoracentesis tomorrow. 01/05: no acute events overnight. scheduled for thoracentesis today but procedure pushed to tomorrow. TF restarted and will be NPO post MN. 01/06: planned thoracentesis today. Working with CM for ltac/snf approval. 01/07: s/p thoracentesis 120 cc appears to have been removed. Pulm recommendations noted, agree with continued diuresis and weaning. Continued planning with CM for ltac/snf placement. 01/08: No new issues. Continue vent weaning per pulmonary. Continuing to work with CM for placement. 01/09: No new issues. Continue vent weaning per pulmonary. Continuing to work with CM for placement. Ordered BMP for tomorrow to check kidney function as patient is currently being diuresed. 01/10: No new issues. Continue vent weaning/diuresis as directed by pulmonary medicine.BMP demonstrates normal renal function and potassium. Sodium and Chloride consistent with prior labs. Will recheck BMP in 2 days. Placement continues to be an issue as patient has been denied at all facilities. Will reasses with CM on wednesday. 01/11: Emesis overnight. Do not suspect that she is obstructed as she had 2 BM reported. Will order Reglan prn, drop TF rate to goal of 30 cc/hr. Will continue to work on placement. 01/12: Per RN patient had reported that she was tired and did not want to persist in her current state of health. D/w patient Niraj at patient bedside and stated that I recommended the patient/family at least talk with hospice to get a better understanding of their care. He was agreeable. I spoke with Ms. Busby who will help set up referral for hospice service so that family can be educated and, if the patient chooses, can pursue this option. 01/13: Continue supportive care. Family discussing about hospice. Continue reinforcement and continue weaning as tolerated. Prognosis is guarded and poor. Patient is clinically stable to transfer to the next level of care has not required any escalation in management. Has been stable on the vent awake alert following commands. 01/14: [id number]. Considering abdominal distention tube feedings hold along with the fact that the patient vomited yesterday. Will obtain a CT abdomen and pelvis to further evaluate placement. Discussed with nursing staff. Awaiting to have a family conversation with the for goals of care discussion again. 01/15: Continue supportive care, tube feed was restarted yesterday and tolerated, will start on simethicone for gas control and management. Patient is clinically stable for all lower level of care and continued weaning from the ventilator to appropriate facility. Family still undecided about goals of care. We will also check labs intermittently. 01/16: Patient today went for Chest tube placement on the right side for recurrent pleural effusion, with the goal of evaluating to see if we can wean off the vent. She has remained on the vent and with some persistent anxiety. she continues to tolerate tube feed. Again poor prognosis discussed with family. 01/17: Status post chest tube, with output of approximately 1880 cc since placement. Will continue to work with pulmonology for vent weaning. 01/18: Only tolerated 1 hr of t piece trial yesterday per RT. Patient PaO2 50s on abg last night. Will continue to work with pulmonary medicine for vent weaning. abg, cbc, bmp, xr chest ordered for am. 01/19: On t piece trial this AM. labs reviewed. CXR reviewed and appears stable with no new changes. AB.42/47.8/112.3/30.9. Will follow pulmonary recommendations and plan to continue to wean off of vent. 01/20: Per CM, [facility] declined patient admission as there are T stated the patient was not amenable from the vent. Yesterday patient had tolerated T-piece trial for approximately 12 hours. Today patient only tolerated for 45 minutes. Had desatted and stated that she was in pain during today's trial. Output yesterday from chest tube 1000 cc. Today it is 100 cc thus far. Will obtain chest x-ray tomorrow. 01/21: XR chest demonstrate mild improvement in pulmonary edema. Chest tube OP: 400 cc on 01/20 and 450 cc thus far today. On CPAP trial this am. Hopefully patient can eventually be weaned off of vent. Placement continues to be a challenge as patient has been denied at all facilities thus far, working with CM who has been in frequent contact with [facility]. Assessment and Plan Neuro : Anxiety, chronic pain -Neurology consulted, appreciate recommendations -CT brain showed no acute events -EEG interpreted as abnormal record due to diffuse slowing noted throughout the recording, suggestive of encephalopathic process and/or drug effect, possibilities of postictal state cannot be totally excluded. Clinical correlation is in order -MRI brain not obtained-> patient has metal in her body -Repeat CT head with no acute findings -Reorientation as needed -Ammonia 42, B12 1823, TSH 1.5 -BuSpar, Seroquel, [place], gabapentin -prn xanax and Dilaudid Cardio: Acute Heart failure with reduced EF, h/o chronic heart block s/p PPM, HTN, CAD s/p PCI (2004), Moderate pulmonary HTN, cardiomyopathy -s/p vasopressor support with levophed -11/04 echocardiogram shows EF 30 to 35%, Moderate pulmonary HTN RVSP 49 -3/ echo with 35-40% EF -Cardiology consulted, appreciate recommendations -Continue beta-charleen and statin therapy -Midodrine (titrate as needed) -Not on aspirin due to allergy -Blood pressure monitoring per protocol -As needed nitroglycerin Resp: Acute hypoxic respiratory failure secondary to bilateral pneumonia, recurrent bilateral pleural effusion s/p rt sided chest tube. Right pneumothorax (resolved). -COVID-19 PCR negative -Intubated on 11/06 with 6.00 ETT at 18 at the lip and changed over bougie on 11/11-7.50 ETT at 20 at the lip -See RT notes for titration -PSV as tolerated -Surgery consult for trach -Received trach/PEG on 11/26 -S/p bedside bronchoscopy on 11/11 complicated by pneumothorax -S/p chest tube placement for right pneumothorax and dislodgment by patient on 11/15 -ABG/CXR per [facility] -VAP bundle -Right chest wall ultrasound showed pleural effusion s/p chest tube -12/11 US thoracentesis removed 1L fluid -12/29 US thoracentesis removed 1.4L fluid -01/06 thoracentesis planned -01/16 right-sided chest tube placed by IR -SPO2 monitoring GI: S/p GI bleed, duodenal ulcer, transaminitis -GI consulted, appreciate recommendations-signed off -Nutrition consult for tube feeding, currently on nepro TF 45 cc/hr, dropped to 30 cc/hr due to concerns for emesis. -BR: Senokot -s/p peg 11/26 -H2 charleen -Carafate -24-hour +428 ml -10/2021 Gastric occult positive -> EGD-> duodenal ulcer -12/14 occult stool positive - reglan prn. : Urinary retention (resolved), hyponatremia, hypochloremia -Strict intake and output -Trend BMP ID: Septic shock (POA-resolved), bilateral pneumonia, MRSA bacteremia/pna -Infectious disease consulted, appreciate recommendations -COVID-19 PCR negative -Presented with fevers, leukocytosis and hypotension -11/04 blood cultures positive with a group B strep bacteremia 12/19 however repeat blood cultures on the with no growth to date -Echo showed no evidence of vegetation -repeat echo showed EF 35-40 % with no vegetations -ABX therapy: IV vancomycin for 4 weeks (12/16-01/26) -Monitor WBC and fever curve -Bedside bronchoscopy for mucous plug on CXR 11/11 -f/u blood cultures Heme: Acute DVT in the right external iliac vein, common femoral vein, superior aspect of femoral vein, Acute microcytic anemia -Evidenced on bilateral upper lower extremity ultrasound -S/p 7 unit PRBC -Trend CBC -Transfuse for hemoglobin less than 7 -heparin gtt dc d/t anemia -S/p IVC filter Endo: h/o DM and hypothyroidism -Continue home Synthroid -SSI -Accu-Cheks every 6 -Avoid hypoglycemia The high probability of a clinically significant, sudden or life threatening deterioration of the [multi] system(s) required my full and direct attention, intervention and personal management. The aggregate critical care time was [60] minutes. This time is in addition to time spent performing reported procedures but includes the following: [x] Data Review and interpretation [x] Patient assessment and monitoring of vital signs [x] Documentation [x] Medication orders and management History Interval history: Patient resting comfortably on encounter. Visibly frustrated with her lack of significant progress. She states that she feels like she is drowning. Patient is reassured that weaning trials are meant to be challenging. Her vital signs were stable at the time of my encounter. I reassured the patient that we are closely monitoring her and attempting to wean her off mechanical ventilation support. She understood. Hospitalist Physical - Physical exam Narrative exam: Physical Exam: VITAL SIGNS: Reviewed. GENERAL: The patient appears normally developed, Vital signs as documented. Frail appearing elderly woman. HEAD: No signs of head trauma. EYES: Pupils are equal. Extraocular motions intact. EARS: Hearing grossly intact. MOUTH: Oropharynx is normal. NECK: No adenopathy, no JVD. CHEST: Bl rhonchi. rt sided chest tube in place. CARDIAC: Regular rate and rhythm. S1 and S2, without murmurs, gallops, or rubs. VASCULAR: No Edema. Peripheral pulses normal and equal in all extremities. ABDOMEN: Soft, non tender and non distended. No rebound or guarding, and no masses palpated. Bowel Sounds normal. MUSCULOSKELETAL: Good range of motion of all major joints. Extremities without clubbing, cyanosis or edema. NEUROLOGIC EXAM: Alert and oriented x 4. no focal sensory or strength deficits. PSYCHIATRIC: anxious appearing SKIN: detail exam as documented in skin assessment - Constitutional Vitals: Temp Pulse Resp BP Pulse Ox 97.5 F L 60 17 101/43 100 01/21/22 08:00 01/21/22 11:00 01/21/22 11:00 01/21/22 11:00 01/21/22 11:00 General appearance: Present: no acute distress HEART Score - HEART Score Troponin: Troponin T 0.078 ng/mL (0.00-0.029) H 01/15/22 Unknown Results - Labs CBC & Chem 7: 01/19/22 04:50 01/19/22 04:50 Labs: Laboratory Last Values WBC 10.1 K/mm3 (4.5-11.0) 01/19/22 04:50 RBC 3.14 M/mm3 (3.65-5.03) L 01/19/22 04:50 Hgb 8.4 gm/dl (10.1-14.3) L 01/19/22 04:50 Hct 26.0 % (30.3-42.9) L 01/19/22 04:50 MCV 83 fl (79-97) 01/19/22 04:50 MCH 27 pg (28-32) L 01/19/22 04:50 MCHC 32 % (30-34) 01/19/22 04:50 RDW 18.2 % (13.2-15.2) H 01/19/22 04:50 Plt Count 222 K/mm3 (140-440) 01/19/22 04:50 Lymph % (Auto) 28.2 % (13.4-35.0) 01/19/22 04:50 [place] % (Auto) 5.3 % (0.0-7.3) 01/19/22 04:50 Eos % (Auto) 3.8 % (0.0-4.3) 01/19/22 04:50 Baso % (Auto) 0.8 % (0.0-1.8) 01/19/22 04:50 Lymph # (Auto) 2.8 K/mm3 (1.2-5.4) 01/19/22 04:50 [place] # (Auto) 0.5 K/mm3 (0.0-0.8) 01/19/22 04:50 Eos # (Auto) 0.4 K/mm3 (0.0-0.4) 01/19/22 04:50 Baso # (Auto) 0.1 K/mm3 (0.0-0.1) 01/19/22 04:50 Add Manual Diff Complete 01/19/22 04:50 Total Counted 100 01/15/22 14:36 Seg Neutrophils % 61.9 % (40.0-70.0) 01/19/22 04:50 Seg Neuts % (Manual) 82.0 % (40.0-70.0) H 01/15/22 14:36 Band Neutrophils % 0 % 01/15/22 14:36 Lymphocytes % (Manual) 11.0 % (13.4-35.0) L 01/15/22 14:36 Reactive Lymphs % (Man) 0 % 01/15/22 14:36 Monocytes % (Manual) 5.0 % (0.0-7.3) 01/15/22 14:36 Eosinophils % (Manual) 1.0 % (0.0-4.3) 01/15/22 14:36 Basophils % (Manual) 1.0 % (0.0-1.8) 01/15/22 14:36 Metamyelocytes % 0 % 01/15/22 14:36 Myelocytes % 0 % 01/15/22 14:36 Promyelocytes % 0 % 01/15/22 14:36 Blast Cells % 0 % 01/15/22 14:36 Nucleated RBC % Not Reportable 01/15/22 14:36 Seg Neutrophils # 6.2 K/mm3 (1.8-7.7) 01/19/22 04:50 Seg Neutrophils # Man 8.8 K/mm3 (1.8-7.7) H 01/15/22 14:36 Band Neutrophils # 0.0 K/mm3 01/15/22 14:36 Lymphocytes # (Manual) 1.2 K/mm3 (1.2-5.4) 01/15/22 14:36 Abs React Lymphs (Man) 0.0 K/mm3 01/15/22 14:36 Monocytes # (Manual) 0.5 K/mm3 (0.0-0.8) 01/15/22 14:36 Eosinophils # (Manual) 0.1 K/mm3 (0.0-0.4) 01/15/22 14:36 Basophils # (Manual) 0.1 K/mm3 (0.0-0.1) 01/15/22 14:36 Metamyelocytes # 0.0 K/mm3 01/15/22 14:36 Myelocytes # 0.0 K/mm3 01/15/22 14:36 Promyelocytes # 0.0 K/mm3 01/15/22 14:36 Blast Cells # 0.0 K/mm3 01/15/22 14:36 WBC Morphology Not Reportable 01/15/22 14:36 Hypersegmented Neuts Not Reportable 01/15/22 14:36 Hyposegmented Neuts Not Reportable 01/15/22 14:36 Hypogranular Neuts Not Reportable 01/15/22 14:36 Smudge Cells Not Reportable 01/15/22 14:36 Toxic Granulation Not Reportable 01/15/22 14:36 Toxic Vacuolation Not Reportable 01/15/22 14:36 Dohle Bodies Not Reportable 01/15/22 14:36 Pelger-Huet Anomaly Not Reportable 01/15/22 14:36 Irina Rods Not Reportable 01/15/22 14:36 Platelet Estimate Consistent w auto 01/15/22 14:36 Clumped Platelets Not Reportable 01/15/22 14:36 Plt Clumps, EDTA Not Reportable 01/15/22 14:36 Large Platelets Not Reportable 01/15/22 14:36 Giant Platelets Not Reportable 01/15/22 14:36 Platelet Satelliting Not Reportable 01/15/22 14:36 Plt Morphology Comment Not Reportable 01/15/22 14:36 RBC Morphology Not Reportable 01/15/22 14:36 Dimorphic RBCs Not Reportable 01/15/22 14:36 Polychromasia Not Reportable 01/15/22 14:36 Hypochromasia Not Reportable 01/15/22 14:36 Poikilocytosis Not Reportable 01/15/22 14:36 Anisocytosis 1+ 01/15/22 14:36 Microcytosis Not Reportable 01/15/22 14:36 Macrocytosis Not Reportable 01/15/22 14:36 Spherocytes Not Reportable 01/15/22 14:36 Pappenheimer Bodies Not Reportable 01/15/22 14:36 Sickle Cells Not Reportable 01/15/22 14:36 Target Cells Not Reportable 01/15/22 14:36 Tear Drop Cells Not Reportable 01/15/22 14:36 Ovalocytes Not Reportable 01/15/22 14:36 Helmet Cells Not Reportable 01/15/22 14:36 Odonnell-Elbert Bodies Not Reportable 01/15/22 14:36 [place] Rings Not Reportable 01/15/22 14:36 Malcom Cells Not Reportable 01/15/22 14:36 Bite Cells Not Reportable 01/15/22 14:36 Crenated Cell Not Reportable 01/15/22 14:36 Elliptocytes Not Reportable 01/15/22 14:36 Acanthocytes (Spur) Not Reportable 01/15/22 14:36 Rouleaux Not Reportable 01/15/22 14:36 Hemoglobin C Crystals Not Reportable 01/15/22 14:36 Schistocytes Not Reportable 01/15/22 14:36 Malaria parasites Not Reportable 01/15/22 14:36 Godfrey Bodies Not Reportable 01/15/22 14:36 Hem Pathologist Commnt No 01/15/22 14:36 PT 16.9 Sec. (12.2-14.9) H 01/06/22 04:06 INR 1.23 (0.87-1.13) H 01/06/22 04:06 APTT 29.2 Sec. (24.2-36.6) 11/26/21 05:00 D-Dimer 2655.00 ng/mlDDU (0-234) H 11/11/21 04:28 ABG pH 7.390 pH Units (7.350-7.450) 01/19/22 20:45 ABG pCO2 50.4 mm Hg 01/19/22 20:45 ABG pO2 95.2 mm Hg (80.0-90.0) H 01/19/22 20:45 ABG HCO3 29.8 mmol/L (20.0-26.0) H 01/19/22 20:45 ABG O2 Saturation 97.3 % (95.0-99.0) 01/19/22 20:45 ABG O2 Content 10.9 (0.0-44) 01/19/22 20:45 ABG Base Excess 4.3 mmol/L (-2.0-3.0) H 01/19/22 20:45 ABG Hemoglobin 8.0 gm/dl (12.0-16.0) L 01/19/22 20:45 ABG Carboxyhemoglobin 1.7 % (0.0-5.0) 01/19/22 20:45 ABG Methemoglobin 0.4 % (0.0-1.5) 01/19/22 20:45 Oxyhemoglobin 95.2 % (95.0-99.0) 01/19/22 20:45 FiO2 35 % 01/19/22 20:45 Sodium 134 mmol/L (137-145) L 01/19/22 04:50 Potassium 3.9 mmol/L (3.6-5.0) 01/19/22 04:50 Chloride 95.4 mmol/L (98-107) L 01/19/22 04:50 Carbon Dioxide 29 mmol/L (22-30) 01/19/22 04:50 Anion Gap 14 mmol/L 01/19/22 04:50 BUN 28 mg/dL (7-17) H 01/19/22 04:50 Creatinine 0.6 mg/dL (0.6-1.2) 01/19/22 04:50 Estimated GFR > 60 ml/min 01/19/22 04:50 BUN/Creatinine Ratio 47 % 01/19/22 04:50 Glucose 100 mg/dL (65-100) 01/19/22 04:50 POC Glucose 73 mg/dL (70-105) 01/20/22 23:46 Lactic Acid 3.70 mmol/L (0.7-2.0) H* 11/03/21 22:32 Calcium 8.7 mg/dL (8.4-10.2) 01/19/22 04:50 Phosphorus 3.70 mg/dL (2.5-4.5) 01/19/22 04:50 Magnesium 1.80 mg/dL (1.7-2.3) 01/19/22 04:50 Ferritin 52.6 ng/mL (10.0-200.0) 11/05/21 06:11 Total Bilirubin 0.50 mg/dL (0.1-1.2) 11/17/21 05:56 Direct Bilirubin < 0.2 mg/dL (0-0.2) 11/11/21 04:28 Indirect Bilirubin 0.1 mg/dL 11/11/21 04:28 AST 36 units/L (5-40) 11/17/21 05:56 ALT 47 units/L (7-56) 11/17/21 05:56 Alkaline Phosphatase 107 units/L (35-129) 11/17/21 05:56 Ammonia 42.0 umol/L (25-60) 11/10/21 14:08 Lactate Dehydrogenase 187 units/L (91-180) H 11/05/21 06:11 Troponin T 0.078 ng/mL (0.00-0.029) H 01/15/22 Unknown C-Reactive Protein 22.20 mg/dL (0.00-1.30) H 11/05/21 06:11 NT-Pro-B Natriuret Pep 7895 pg/mL (0-900) H 11/03/21 22:32 Total Protein 5.1 g/dL (6.3-8.2) L 11/17/21 05:56 Albumin 2.2 g/dL (3.9-5) L 11/17/21 05:56 Albumin/Globulin Ratio 0.8 % 11/17/21 05:56 Triglycerides 72 mg/dL (2-149) 01/15/22 21:07 Cholesterol 103 mg/dL (50-199) 01/15/22 21:07 LDL Cholesterol Direct 44 mg/dL (50-130) L 01/15/22 21:07 HDL Cholesterol 46 mg/dL (40-59) 01/15/22 21:07 Cholesterol/HDL Ratio 2.23 % 01/15/22 21:07 Vitamin B12 1823 pg/mL (211-911) H 11/10/21 14:08 TSH 1.510 mlU/mL (0.270-4.200) 11/10/21 14:08 Urine Color Yellow (Yellow) 11/11/21 09:00 Urine Turbidity Slightly-cloudy (Clear) 11/11/21 09:00 Urine pH 5.0 (5.0-7.0) 11/11/21 09:00 Ur Specific [place] 1.009 (1.003-1.030) 11/11/21 09:00 Urine Protein <15 mg/dl mg/dL (Negative) 11/11/21 09:00 Urine Glucose (UA) Neg mg/dL (Negative) 11/11/21 09:00 Urine Ketones Neg mg/dL (Negative) 11/11/21 09:00 Urine Blood Mod (Negative) 11/11/21 09:00 Urine Nitrite Neg (Negative) 11/11/21 09:00 Urine Bilirubin Neg (Negative) 11/11/21 09:00 Urine Urobilinogen < 2.0 mg/dL (<2.0) 11/11/21 09:00 Ur Leukocyte Esterase Neg (Negative) 11/11/21 09:00 Urine WBC (Auto) < 1.0 /HPF (0.0-6.0) 11/11/21 09:00 Urine RBC (Auto) < 1.0 /HPF (0.0-6.0) 11/11/21 09:00 Fluid Type Pleural 01/06/22 13:40 Fluid Color Yellow 01/06/22 13:40 Fluid Appearance Hazy 01/06/22 13:40 Fluid WBC 273 /mm3 01/06/22 13:40 Fluid RBC 45 /mm3 01/06/22 13:40 Fluid Seg Neutrophils 47.0 % 01/06/22 13:40 Fluid Lymphocytes 22.0 % 01/06/22 13:40 Fluid Monocytes 10.0 % 01/06/22 13:40 Fluid Eosinophils 19.0 % 01/06/22 13:40 Fluid Basophils 2.0 % 01/06/22 13:40 Fluid Glucose 96 mg/dL (40-70) H 01/06/22 13:40 Fluid Total Protein < 3.0 (15.0-45.0) L 01/06/22 13:40 Fluid LDH 149 01/06/22 13:40 Vancomycin Trough 15.3 ug/mL (5.0-20.0) 01/16/22 07:30 Random Vancomycin 10.5 ug/mL (0-40.0) 01/04/22 05:00 Coronavirus (PCR) Negative (Negative) 11/10/21 08:30 Blood Type O POSITIVE 12/14/21 10:30 Antibody Screen Negative 12/14/21 10:30 Crossmatch See Detail 12/14/21 10:30 Microbiology: Microbiology 01/16/22 Unknown Pleural Fluid - Pleura,Rt Lung Body Fluid Culture - Final Gamble/IV: Voiding Method External Female Catheter Active Medications - Current Medications Current Medications: Generic Name Dose Route Start Last Admin Trade Name Freq PRN Reason Stop Dose Admin Acetaminophen 650 mg 12/14/21 04:12 01/17/22 11:27 Acetaminophen 325 Mg/10.15 Ml Oral Liqd Unit Dose FEEDTUBE 650 mg Q6H PRN Administration Non Cardiac Pain or Temp>100.5 Hydrocodone Bitart/Acetaminophen 1 each 11/21/21 10:00 01/21/22 08:15 Hydrocodone/Acetaminophen 10-325mg Tab FEEDTUBE 1 each TID YOSSI Administration Alprazolam 0.25 mg 12/30/21 09:00 01/21/22 08:16 Alprazolam 0.25 Mg Tab FEEDTUBE 0.25 mg Q8H PRN Administration Agitation Lipase/Protease/Amylase 1 each 11/08/21 11:09 Lipase 10,500/Protease 25,000/Amylase 43,750 (Units) Dr Cap FEEDTUBE PRN PRN For Clogged Feeding Tube Buspirone HCl 7.5 mg 12/30/21 10:00 01/21/22 10:32 Buspirone 5 Mg Tab FEEDTUBE 7.5 mg BID YOSSI Administration Dextrose 50 ml 01/16/22 14:00 Dextrose 50% In Water (25gm) 50 Ml Syringe IV Q30MIN PRN Hypoglycemia Protocol Docusate Sodium 100 mg 12/30/21 10:00 01/21/22 10:34 Docusate Sodium 100 Mg/10 Ml Oral Liqd FEEDTUBE Not Given BID YOSSI Furosemide 20 mg 01/08/22 10:00 01/21/22 10:32 Furosemide 20 Mg Tab PO 20 mg QDAY YOSSI Administration Gabapentin 100 mg 12/30/21 10:00 01/21/22 10:32 Gabapentin 100 Mg Cap FEEDTUBE 100 mg QDAY YOSSI Administration Hydrophilic Ointment 1 applic 11/06/21 04:02 Lip Therapy Vaseline TP Q2HR PRN Dry Lips Vancomycin HCl 1 gm in 250 mls @ 166.667 mls/hr 01/04/22 10:00 01/20/22 10:52 Vancomycin/Ns 1 Gm/250 Ml IV 01/26/22 11:29 166.667 mls/hr Q48H YOSSI Administration Lansoprazole 30 mg 11/24/21 22:00 01/21/22 10:32 Lansoprazole 30 Mg Solutab FEEDTUBE 30 mg BID YOSSI Administration Levothyroxine Sodium 125 mcg 12/31/21 06:00 01/21/22 08:16 Levothyroxine 125 Mcg Tab FEEDTUBE 125 mcg DAILY@0600 [facility] Administration Melatonin 5 mg 12/05/21 22:00 01/20/22 21:01 Melatonin 5 Mg Tab PO 5 mg QHS YOSSI Administration Metoclopramide HCl 10 mg 01/11/22 13:25 01/14/22 14:56 Metoclopramide 10 Mg/2 Ml Inj IV 10 mg Q6H PRN Administration Nausea And Vomiting Metoprolol Tartrate 6.25 mg 12/30/21 10:00 01/21/22 10:33 Metoprolol Tartrate 25 Mg Tab FEEDTUBE 6.25 mg BID YOSSI Administration Midodrine 10 mg 01/21/22 08:00 01/21/22 08:16 Midodrine 5 Mg Tab FEEDTUBE 10 mg TID@0800,1200,1600 [facility] Administration Multi-Ingred Cream/Lotion/Oil/Oint 1 applic 11/06/21 04:02 Mineral Oil/Petrolatum, White Ophth Oint 3.5 Gm OU Q4HR PRN Dry Eye(s) Ondansetron HCl 4 mg 12/05/21 10:00 01/20/22 22:10 Ondansetron 4 Mg/2 Ml Inj IV 4 mg Q8H PRN Administration Nausea And Vomiting Polyethylene Glycol 17 gm 12/30/21 10:00 01/21/22 10:34 Polyethylene Glycol 3350 17 Gm Powder FEEDTUBE Not Given QDAY YOSSI Pravastatin Sodium 20 mg 12/30/21 22:00 01/20/22 22:00 Pravastatin 20 Mg Tab FEEDTUBE 20 mg QHS YOSSI Administration Quetiapine Fumarate 25 mg 12/30/21 10:00 01/21/22 10:32 Quetiapine 25 Mg Tab FEEDTUBE 25 mg QAM YOSSI Administration Quetiapine Fumarate 50 mg 12/30/21 22:00 01/20/22 21:01 Quetiapine 25 Mg Tab FEEDTUBE 50 mg QHS YOSSI Administration Senna 17.6 mg 12/29/21 11:00 01/21/22 10:34 Sennosides Oral Liqd 8.8 Mg/5 Ml Oral Liqd FEEDTUBE Not Given Q12HR YOSSI Simethicone 80 mg 01/15/22 15:06 01/15/22 21:10 Simethicone 80 Mg Chew Tab PO 80 mg PC PRN Administration Gas pain Simple Syrup 15 ml 11/08/21 11:09 Simple Syrup 15 Ml FEEDTUBE PRN PRN Hypoglycemia Simple Syrup 30 ml 11/08/21 11:09 Simple Syrup 15 Ml FEEDTUBE PRN PRN Hypoglycemia Sodium Bicarbonate 325 mg 11/08/21 11:09 01/09/22 20:25 Sodium Bicarbonate 325 Mg Tab FEEDTUBE 325 mg PRN PRN Administration For Clogged Feeding Tube Sodium Chloride 10 ml 11/04/21 10:00 01/21/22 10:33 Sodium Chloride 0.9% 10 Ml Flush Syringe IV 10 ml BID YOSSI Administration Sodium Chloride 10 ml 11/04/21 02:03 01/09/22 06:35 Sodium Chloride 0.9% 10 Ml Flush Syringe IV 10 ml PRN PRN Administration LINE FLUSH Spironolactone 25 mg 12/30/21 10:00 01/21/22 10:32 Spironolactone 25 Mg Tab FEEDTUBE 25 mg QDAY YOSSI Administration Sucralfate 1 gm 12/30/21 12:00 01/21/22 07:36 Sucralfate 1 Gm/10 Ml Oral Liqd FEEDTUBE 1 gm Q6HR YOSSI Administration Trazodone HCl 50 mg 12/04/21 22:00 01/20/22 21:01 Trazodone 50 Mg Tab PO 50 mg QHS YOSSI Administration Nutrition/Malnutrition Assess - Dietary Evaluation Nutrition/Malnutrition Findings: Nutrition Notes Start: 11/04/21 17:16 Freq: Status: Active Protocol: Document 01/19/22 12:15 YOVANI (Rec: 01/19/22 12:21 [facility] [id number]) Nutrition Notes Initial or Follow up Reassessment Current Diagnosis Coronary Artery Disease, Diabetes,Hypertension,Heart Failure,Respiratory Failure Other Pertinent Diagnosis Bilat pleural effusion Current Diet TF - Vital AF 1.2 at 35ml/hr Labs/Tests Na 134 BUN 28 Pertinent Medications Reviewed Height 5 ft Weight 62.3 kg [place] Body Weight (kg) 45.45 BMI 26.8 Weight Status Overweight Subjective/Other Information Observing TF infusing at 35ml/ hr; per, RN, pt tolerating TF. One BM reported this am. Pt on trach collar support at time of visit (10:50). Percent of energy/protein needs met: 84% energy and pro Burn Absent Trauma Absent #2 Nutrition Diagnosis Inadequate enteral nutrition infusion As Evidenced by Signs and Symptoms current TF rate provides at least 75% energy and pro needs Diagnosis Progress(for reassessment Resolved documentation) #1 Nutrition Diagnosis Inadequate oral intake Diagnosis Progress(for reassessment Continues documentation) Is patient on ventilator? No Is Patient Ambulatory and/or Out of Bed No REE-([facility]-confined to bed) [phone] Calculation Used for Recommendations [facility] Additional Notes Pro needs 1.2-2g/k-125g/ day Fluid needs 1ml/kcal Nutrition Intervention Nutrition Support: Continue Vital AF 1.2 at 35ml/ hr with 50ml water flush q4h. Kcal 1,008 Protein (gm) 63 Carbohydrates (gm) 45 Fat (gm) 45 Fluid (mL) 681 Fiber (gm) 4 Add Supplement/Snack (indicate name/kcal Jaswant BID /protein ) Provides kCal: 190 Provides Protein (gm) 5 Goal #1 TF tolerance Goal #2 TF to meet at least 75% energy and pro needs Goal #3 Wound healing Follow-Up By: 01/26/22 Additional Comments F/U: stable TF, wt, vent status, wound healing/Jaswant administration
[2022-01-21] MEDS: METOCLOPRAMIDE 10 MG/2 ML INJ IV PRN (21:43)
[2022-01-21] MEDS: MELATONIN 5 MG TAB PO SCH (21:45)
[2022-01-21] MEDS: traZODone 50 MG TAB PO SCH (21:47)
[2022-01-21] MEDS: PRAVASTATIN 20 MG TAB FEEDTUBE SCH (22:08)
[2022-01-22] MEDS: SUCRALFATE 1 GM/10 ML ORAL LIQD FEEDTUBE SCH ×5 (00:15→17:28)
[2022-01-22] MEDS: ALPRAZolam 0.5 MG TAB FEEDTUBE PRN (05:02)
[2022-01-22] MEDS: SENNOSIDES ORAL LIQD 8.8 MG/5 ML ORAL LIQD FEEDTUBE SCH ×3 (05:07→22:39)
[2022-01-22] MEDS: PRAVASTATIN 20 MG TAB FEEDTUBE SCH ×2 (05:10→22:39)
--- NOTE | 2022-01-22 09:21 | Progress Note ---
Assessment and Plan Assessment and plan: This is an 82-year-old female with DM, HTN , CHB s/p PPM, CAD s/p PCI and arthritis who presented to the emergency department on 11/04 for shortness of breath ongoing for the past 3 days, cough and according to family a fever of 102.2. Upon arrival of EMS patient was found to be tachypneic and hypoxic with SPO2 of 76% on room air which later improved to 88% on nonrebreather. Work-up in the emergency department included a CXR which showed bilateral interstitial pulmonary edema with bilateral pleural effusions and bibasilar opacities, leukocytosis and anemia with a hemoglobin of 6.1. Patient was admitted to the hospitalist service with acute anemia, acute hypoxic respiratory failure, bilateral pneumonia and COVID-19 PUI with consults to pulmonology, infectious disease and later cardiology. Patient was eventually intubated in the emergency department on 11/06. Hospital Course to date: 11/04/2021: Empiric therapy with iv levaquin/vancomycin. COVID PCR pending. Will consult ID. PCCM consulted, will follow recs. Hypotensive this AM, ordered bolus and fluids at 150 cc/hr. May require pressor support if bp does not improve. 11/05/2021: GBS on bcx +, currently on rocephin IV. Currently on bipap due to respiratory distress overnight. Worsening BL opacities on CXR. May be volume overload vs pneumonia. Unfortunately bp too low for lasix at this point. WIll continue levophed and bipap. Once able to tolerate, may do trial of albumin/lasix. Call attempt made to Niraj, no response. Will try again tomorrow to update. 11/06/2021: Decompensated overnight requiring intubation. CXR shows worsening interstitial infiltrates. Currenlty on dopamine, levophed, vasopressin. PICC line ordered. Advised RN to place gamble for I/O monitoring. Would benefit from diuresis but very volume overloaded. Prognosis guarded 11/08: Off sedation this am, remains unresponsive only grimace to pain. Hold all sedatives agents for now, patient is off pressors this am. Hypernatremia from today's lab- D5W X1bag, and low K repleted, repeat lab in the am. Severe constipation also noted from KUB, BR added. 11/09: Sudden SPO2 drop in the 60s this am. Patient was manually bagged and deep suctioned. Patient is currently stable on the vent, repeat CXR with no significant change. D/w CCM Mucomyst and brochodilator added. Patient mentation is unchanged, continue to hold off on sedative agents. Neurology consulted. 11/10: Acute DVT noted on bilateral lower extremity Doppler ultrasound therefore she was started on Lovenox treatment dose. Failed SBT. Hypernatremia and hyperchloremia noted, free water flush adjusted. 11/11: Patient noted to be febrile with increasing of the cytosis, UA/BC sent and CXR ordered. ID escalated antibiotics to cefepime. CXR demonstrated mucous plug, bedside bronchoscopy was performed and O ETT was changed over bougie from 6 cm to 7.5. Patient was noted to have a pneumothorax postprocedure and chest tube was placed. Family updated by [facility]. Free water flush increased and will add Jaswant supplementation. 11/12: Patient not noted to follow commands, hypernatremia worsen/persist, increasing free water flush, potassium and magnesium and phosphorus repleted. Hemoglobin noted to be 7./24.5 from 7.03/12 yesterday. We will continue to trend and monitor. Vent changes per [facility]. Repeat CXR showed no residual pneumothorax. Consider waterseal tomorrow. Given persistent leukocytosis antibiotics escalated to cefepime per ID. 11/13: Remains on cefepime and vancomycin, vent changes per [facility]. Anemia noted and given 1 unit PRBC. And beta-charleen held in setting of Levophed drip infusing. Remains on fentanyl drip. 11/14: Patient put on CPAP trial by [facility], will continue chest tube until after extubation. Will rest on assist control. CT brain was cancelled by peanut grader and reordered. 11/15: Patient removed chest tube overnight. Will obtain cxr. remains on low dose levo. CTH completed with no acute findings. RT to place on CPAP. 11/16: Hypernatremia/hyperchloremia noted on the increase of day water flushes. Anemia noted and ordered PRBC. asked RT to place on cpap but not done yet 11/17: Patient remains on the vent, awake and following commands. H&H stable s/p 2units PRBCs. GI on consult, no intervention at this time. Will continue protonix gtt and serial H&H Q6hrs. Keep patient NPO for now, D5w added for hypernatremia and NPO status. Plan for IVC filter placement today by Vascular. 11/18: Patient is s/p IVC filter. H&H continue to trend down, hbg 6.1 this am, 1 unit of PRBCs ordered. Plan for possible EGD today by GI. Keep patient NPO, continue PPI drip and serial H&H Q6hrs. Electrolytes repleted, repeat lab in the am 11/19: S/p EGD- larger duodenal ulcer noted, see operative note. GI recommendations noted also noted. H&H stable this am. Keep patient on protonix gtt for now. Will keep patient NPO, continue IVF and serial H&H for now. Electrolytes repleted, repeat labs in the am 11/20: Very agitated and restless this am, fentanyl gtt resumed. Patient remains on protonix gtt, H&H remains stable. Will switch protonix gtt to IV BID, continue carafate and okay to resume meds at this time. Will F/u with GI to see if TF can be resumed. Gamble was reinserted overnight for retention. Electrolytes repleted, repeat in the am. Plan for possible PST today for possible extubation per CCM. 11/21: Patient is now on seroquel and patient's home buspar resumed. Patient more calm this morning, fentanyl gtt is off. H&H remains stable and patient is tolerating TF. Patient had a runs of Vtach/PVCs this am, BB added per Cardio. Continue daily PS and wean trial for possible extubation. 11/22: Back on fentanyl gtt overnight , RASS o to -1, following commands. Patient failed PST this am due to increased work of breathing and low SPO2, ABG pending. Patient is also with worsen pitting edema, lasix is still on hold. Will discuss with cardio and CCM to possibly resume lasix. 11/23: MARIA DEL CARMEN overnight. Patient failed PST again this am. Per CCM plan for possible trach and PEG, hold off on IV lasix for now. General surgery consulted and family is aware of possible Trach and PEG. 11/24: Trach/PEG pending this week, continue SBT/SAT as tolerated. No acute events reported overnight. 11/25: Patient was n.p.o. overnight and will remain n.p.o. tonight for trach/PEG tomorrow morning. She failed to support trial again. KUB obtained due to distended belly. 11/26: Patient scheduled for tracheostomy and PEG tube placement today, has been n.p.o. since midnight. No acute events reported overnight. [facility] ordered simethicone scheduled. 11/27: No acute events reported overnight, patient received trach/PEG yesterday. Has been on feedings since last night. Still awaiting LTAC placement. 11/28: Patient magnesium repleted, repeat a.m. labs, SBT 11/29: Patient complains of chest pain but ECG obtained which showed no acute findings, ordered troponin. Patient failed CPAP yesterday and was trialed again today. levophed was restarted but will aggressively wean 11/30: Patient failed SBT. Continue supportive care. Started gabapentin today 12/01: MARIA DEL CARMEN overnight. Continue daily PST. Case management to arrange possible placement 12/02: Report of dark stools overnight, patient is hemodynamically stable. H&H stable, patient is on PPI. Will continue to trend H&H. Continue daily PST as tolerated. Awaiting LTAC vs SNF placement. 12/03: Hypotensive overnight, requiring low dose pressors. S/p X3 days of gentle diurese. Will continue to monitor, wean off pressors as tolerated for MAP of 65. Patient Failed PST yesterday, case management to follow up with insurance for po ssible LTAC placement. Continue daily PST as tolerated. PT eval and treat ordered. 12/04: Increased agitation and anxiety overnight, remains on buspar and seroquel, trazadone added to promote rest. Patient is now working with PT, keep patient engage and awake during the day so she can rest at night. No BM for over 5 days, BR was adjusted. Patient did not tolerate PST again yesterday, continue daily PST as tolerated. Continue to titrate pressor for MAP above 65. Pending possible LTAC placement, case management to arrange. 12/05: Still not getting much rest overnight, will add melatonin for sleep. Continue to engage patient during the day and promote rest at night. TF was held due to concern for possible bleeding, H&H remains stable and stools normal this am. Resume TF and continue PPI and carafate. Remains on low dose levophed, titrate as tolerated. Continue daily PST. Possible LTAC placement, awaiting approval. 12/06: MARIA DEL CARMEN overnight. Patient rested overnight. Continue supportive measures. Daily PST as tolerated. Awaiting possible LTAC placement 12/07: MARIA DEL CARMEN overnight. Plan for Tpiece trial today. Continue current supportive measures. Possible LTAC placement 12/08: Patient placed on pressure support trial again today, started on Xanax, no acute events reported overnight. Awaiting insurance approval for LTAC. 12/09: Levophed discontinued, LTAC transfer denied, started on midodrine and Lasix, ultrasound chest pending, started on Xanax 0.[address] De León updated family at bedside today. Started on Dilaudid every 3 hours as needed. 12/10: Patient placed on CPAP trial this morning, no acute events reported overnight. Will order ultrasound-guided thoracentesis. 12/11: Patient had a thoracentesis today, will decrease Xanax dosage and continue midodrine and diuresing. Patient failed CPAP today. 12/12: Patient not tolerate CPAP trials today, no acute events reported overnight 12/13: No acute events overnight. continue PSV trials as tolerated. Daughter up dated at bedside 12/14: Patient noted to be anemic today, ordered gastric occult. Patient seems to be oversedated therefore Xanax changed to as needed and fentanyl patch discontinued. We will continue to monitor hyponatremia. 12/15: MARIA DEL CARMEN overnight. s/p 1unit of PRBCs, H&H stable this am, no signs of any active bleeding. Continue daily PST as tolerated. Awaiting placement. 12/16: Hypertensive this am, Midodrine decreased. Continue daily PST. MARIA DEL CARMEN overnight 12/17: Patient Hgb dropped to 6 this am, no s/s of any active bleeding, VSS. Patient received 1unit of PRBC, will continue to trend H&H. Patient was pancultured and back on IV Abx due to persistent fevers yesterday. ID is also back on the case. Continue IV Abx per ID and f/u on cultures data for sensitivity. Patient also failed PST yesterday, continue daily PST as tolerated. Electrolytes repleted, repeat labs in the am. 12/18: Patient blood cultures is growing GPC 4 out 4 bottles. PICC line D/Rivas, patient is already on IV Abx-cefepine and Vanc and ID is following. Patient remains hemodynamically stable. Daily PST as tolerated adn PRN Benzo for anxiety. 12/19: MARIA DEL CARMEN overnight. Culture data noted, continue IV Abx per ID. Orders placed for repeat Bculture. Gamble D/C overnight, patient is voiding. Check bladder scan as needed for retention. Patient failed PST again today. Continue daily PST as tolerated. 12/20: Fevers improved, Cultures +MRSA, on Vanco per ID. Repeat 2D Echo to r/o endocarditis. Patient continue to fail PST, PEEP increased to 8 today. Continue pulmonary hygiene and vent wean per CCM. Sodium tab added for hyponatremia. 12/22: Patient on pressure support trial for approximately 4 hours today, midodrine dosage increased due to hypotension. Lasix discontinued. 12/23: Started on a.m. Seroquel dose, midodrine increased to 10 mg 3 times daily, 500 mL normal saline bolus. 12/24: Seroquel dose changed (25 every morning, 75 nightly). updated at bedside by Dr. De León. CPAP trials as tolerated. Continue vancomycin. Awaiting placement. 12/25: Continue CPAP as tolerated, added gasx for distention. Continue supportive care 12/26: Patient failed PSV this AM. no acute events overnight. 12/27: GI re-consulted due to abdominal distention. No acute events reported overnight. CPAP trials as tolerated. Dr. Mckenna will get a KUB to rule out possible obstruction. 12/28: KUB shows no acute process, CXR shows improvement. CPAP trials as tolerated. 12/29: CT Abd/pelvis noted with moderated bilateral pleural effusion, anasarca, and ascites. X1dose of IV lasix administered. D/w CCM and GI orders plan for thora and paracentesis by IR. Will also start patient on aldactone Qday. Patient is tolerating trickle feeds this am, continue TF and BR adjusted for constipation. Plan of care was discussed with patient and her at the bedside. Thorough discussion on patient's overall poor prognosis and that pat ient will most likely be vent dependent. Patient's voiced understanding of the info given. All questions and concerns were voiced at this time. 12/30: Patient did not tolerate thoracentesis in IR yesterday due to change in LOC and hypoxia. Plan for possible bedside thoracentesis and paracentesis today. Patient remains afebrile. Patient required salvage determiner IV abx therapy [id number] left, orders placed for a PICC. Patient remains with sign. Piting edema and anasarca, X1 does of PO Zaroxolyn and 2m of IV lasix given. Electrolytes repleted, repeat lab in the am. 12/31: Tolerated Rt. thoracentesis at the bedside yesterday, 1.4L removed. Patient remains stable on the vent this am, tolerating CPAP today PS dropped to 14. Recent CXR noted, left pleural effusion improved. Patient tolerated gentle diurese yesterday, good urine output reported. D/w CCM hold off on Left thoracentesis today, continue PO Aldactone and additonal zaroxolyn and IV lasix again today. F/u CXR in the am. 01/01: This am CXR noted with worsening bilateral pleural effusion. Patient is stable and tolerating PST this am, however PS is back up to 20 this am. BP is soft this am will hold off on IV diuretic for today, continue PO Aldactone. D/w CCM continue gentle diurese as tolerated. Will reassess in the am. Continue support care. 01/02: MARIA DEL CARMEN overnight. VSS this am, tolerating PST. X1dose of 25% IV Albumin following with 20mg IV Lasix today. Continue daily gentle diurese if hemodynamics tolerate it. Continue to monitor and replace electrolytes as needed 01/03: Abdominal distention and vomiting overnight, 600cc of gastric residual removed, TF held. KUB with no acute abnormality. Reglan added X2days, resume TF, and continue BR. Patient is tolerating PST this am. Hemodynamics remains stable, will continue gentle IV diurese. close monitoring to renal function and electrolytes. 01/04: Tolerating TF, nausea/vomiting resolved, last BM on 01/03. Continue Reglan X1 more day. Patient continue to tolerate PST. D/W CCM continue gentle diurese. F/U CXR in the am. Possible US thoracentesis tomorrow. 01/05: no acute events overnight. scheduled for thoracentesis today but procedure pushed to tomorrow. TF restarted and will be NPO post MN. 01/06: planned thoracentesis today. Working with CM for ltac/snf approval. 01/07: s/p thoracentesis 120 cc appears to have been removed. Pulm recommendations noted, agree with continued diuresis and weaning. Continued planning with CM for ltac/snf placement. 01/08: No new issues. Continue vent weaning per pulmonary. Continuing to work with CM for placement. 01/09: No new issues. Continue vent weaning per pulmonary. Continuing to work with CM for placement. Ordered BMP for tomorrow to check kidney function as patient is currently being diuresed. 01/10: No new issues. Continue vent weaning/diuresis as directed by pulmonary medicine.BMP demonstrates normal renal function and potassium. Sodium and Chloride consistent with prior labs. Will recheck BMP in 2 days. Placement continues to be an issue as patient has been denied at all facilities. Will reasses with CM on wednesday. 01/11: Emesis overnight. Do not suspect that she is obstructed as she had 2 BM reported. Will order Reglan prn, drop TF rate to goal of 30 cc/hr. Will continue to work on placement. 01/12: Per RN patient had reported that she was tired and did not want to persist in her current state of health. D/w patient Niraj at patient bedside and stated that I recommended the patient/family at least talk with hospice to get a better understanding of their care. He was agreeable. I spoke with Ms. Busby who will help set up referral for hospice service so that family can be educated and, if the patient chooses, can pursue this option. 01/13: Continue supportive care. Family discussing about hospice. Continue reinforcement and continue weaning as tolerated. Prognosis is guarded and poor. Patient is clinically stable to transfer to the next level of care has not required any escalation in management. Has been stable on the vent awake alert following commands. 01/14: [id number]. Considering abdominal distention tube feedings hold along with the fact that the patient vomited yesterday. Will obtain a CT abdomen and pelvis to further evaluate placement. Discussed with nursing staff. Awaiting to have a family conversation with the for goals of care discussion again. 01/15: Continue supportive care, tube feed was restarted yesterday and tolerated, will start on simethicone for gas control and management. Patient is clinically stable for all lower level of care and continued weaning from the ventilator to appropriate facility. Family still undecided about goals of care. We will also check labs intermittently. 01/16: Patient today went for Chest tube placement on the right side for recurrent pleural effusion, with the goal of evaluating to see if we can wean off the vent. She has remained on the vent and with some persistent anxiety. she continues to tolerate tube feed. Again poor prognosis discussed with family. 01/17: Status post chest tube, with output of approximately 1880 cc since placement. Will continue to work with pulmonology for vent weaning. 01/18: Only tolerated 1 hr of t piece trial yesterday per RT. Patient PaO2 50s on abg last night. Will continue to work with pulmonary medicine for vent weaning. abg, cbc, bmp, xr chest ordered for am. 01/19: On t piece trial this AM. labs reviewed. CXR reviewed and appears stable with no new changes. AB.42/47.8/112.3/30.9. Will follow pulmonary recommendations and plan to continue to wean off of vent. 01/20: Per CM, [facility] declined patient admission as there are T stated the patient was not amenable from the vent. Yesterday patient had tolerated T-piece trial for approximately 12 hours. Today patient only tolerated for 45 minutes. Had desatted and stated that she was in pain during today's trial. Output yesterday from chest tube 1000 cc. Today it is 100 cc thus far. Will obtain chest x-ray tomorrow. 01/21: XR chest demonstrate mild improvement in pulmonary edema. Chest tube OP: 400 cc on 01/20 and 450 cc thus far today. On CPAP trial this am. Hopefully patient can eventually be weaned off of vent. Placement continues to be a challenge as patient has been denied at all facilities thus far, working with CM who has been in frequent contact with [facility]. 01/22: Yesterday the patient had lasted approximately 10 hours on T-piece trial. Output from chest tube approximately 525 cc yesterday. Thus far today patient has had 400 cc. Will follow with pulmonology regarding overall plan for chest tube and weaning patient off ventilator. Assessment and Plan Neuro : Anxiety, chronic pain -Neurology consulted, appreciate recommendations -CT brain showed no acute events -EEG interpreted as abnormal record due to diffuse slowing noted throughout the recording, suggestive of encephalopathic process and/or drug effect, possibili ties of postictal state cannot be totally excluded. Clinical correlation is in order -MRI brain not obtained-> patient has metal in her body -Repeat CT head with no acute findings -Reorientation as needed -Ammonia 42, B12 1823, TSH 1.5 -BuSpar, Seroquel, [place], gabapentin -prn xanax and Dilaudid Cardio: Acute Heart failure with reduced EF, h/o chronic heart block s/p PPM, HTN, CAD s/p PCI (2004), Moderate pulmonary HTN, cardiomyopathy -s/p vasopressor support with levophed -11/04 echocardiogram shows EF 30 to 35%, Moderate pulmonary HTN RVSP 49 -3/ echo with 35-40% EF -Cardiology consulted, appreciate recommendations -Continue beta-charleen and statin therapy -Midodrine (titrate as needed) -Not on aspirin due to allergy -Blood pressure monitoring per protocol -As needed nitroglycerin Resp: Acute hypoxic respiratory failure secondary to bilateral pneumonia, recurrent bilateral pleural effusion s/p rt sided chest tube. Right pneumothorax (resolved). -COVID-19 PCR negative -Intubated on 11/06 with 6.00 ETT at 18 at the lip and changed over bougie on 11/11-7.50 ETT at 20 at the lip -See RT notes for titration -PSV as tolerated -Surgery consult for trach -Received trach/PEG on 11/26 -S/p bedside bronchoscopy on 11/11 complicated by pneumothorax -S/p chest tube placement for right pneumothorax and dislodgment by patient on 11/15 -ABG/CXR per CCM -VAP bundle -Right chest wall ultrasound showed pleural effusion s/p chest tube -12/11 US thoracentesis removed 1L fluid -12/29 US thoracentesis removed 1.4L fluid -01/06 thoracentesis planned -01/16 right-sided chest tube placed by IR -SPO2 monitoring GI: S/p GI bleed, duodenal ulcer, transaminitis -GI consulted, appreciate recommendations-signed off -Nutrition consult for tube feeding, currently on nepro TF 45 cc/hr, dropped to 30 cc/hr due to concerns for emesis. -BR: Senokot -s/p peg 11/26 -H2 charleen -Carafate -24-hour +428 ml -10/2021 Gastric occult positive -> EGD-> duodenal ulcer -12/14 occult stool positive - reglan prn. : Urinary retention (resolved), hyponatremia, hypochloremia -Strict intake and output -Trend BMP ID: Septic shock (POA-resolved), bilateral pneumonia, MRSA bacteremia/pna -Infectious disease consulted, appreciate recommendations -COVID-19 PCR negative -Presented with fevers, leukocytosis and hypotension -11/04 blood cultures positive with a group B strep bacteremia 12/19 however repeat blood cultures on the with no growth to date -Echo showed no evidence of vegetation -repeat echo showed EF 35-40 % with no vegetations -ABX therapy: IV vancomycin for 4 weeks (12/16-01/26) -Monitor WBC and fever curve -Bedside bronchoscopy for mucous plug on CXR 11/11 -f/u blood cultures Heme: Acute DVT in the right external iliac vein, common femoral vein, superior aspect of femoral vein, Acute microcytic anemia -Evidenced on bilateral upper lower extremity ultrasound -S/p 7 unit PRBC -Trend CBC -Transfuse for hemoglobin less than 7 -heparin gtt dc d/t anemia -S/p IVC filter Endo: h/o DM and hypothyroidism -Continue home Synthroid -SSI -Accu-Cheks every 6 -Avoid hypoglycemia The high probability of a clinically significant, sudden or life threatening deterioration of the [multi] system(s) required my full and direct attention, intervention and personal management. The aggregate critical care time was [60] minutes. This time is in addition to time spent performing reported procedures but includes the following: [x] Data Review and interpretation [x] Patient assessment and monitoring of vital signs [x] Documentation [x] Medication orders and management History Interval history: Patient sleeping comfortably on encounter. When she awoke, patient stated that she had some jaw pain. Jaw was examined and no acute pathology was identified. He continues to have chest sidewall pain. Yesterday the patient had lasted approximately 10 hours on T-piece trial. This was encouraging and communicated to the patient who was curious about her clinical progress. Output from chest tube approximately 525 cc yesterday. Thus far today patient has had 400 cc. Hospitalist Physical - Physical exam Narrative exam: Physical Exam: VITAL SIGNS: Reviewed. GENERAL: The patient appears normally developed, Vital signs as documented. Frail appearing elderly woman. HEAD: No signs of head trauma. EYES: Pupils are equal. Extraocular motions intact. EARS: Hearing grossly intact. MOUTH: Oropharynx is normal. NECK: No adenopathy, no JVD. CHEST: Bl rhonchi. rt sided chest tube in place. CARDIAC: Regular rate and rhythm. S1 and S2, without murmurs, gallops, or rubs. VASCULAR: No Edema. Peripheral pulses normal and equal in all extremities. ABDOMEN: Soft, non tender and non distended. No rebound or guarding, and no masses palpated. Bowel Sounds normal. MUSCULOSKELETAL: Good range of motion of all major joints. Extremities without clubbing, cyanosis or edema. NEUROLOGIC EXAM: Alert and oriented x 4. no focal sensory or strength deficits. PSYCHIATRIC: anxious appearing SKIN: detail exam as documented in skin assessment - Constitutional Vitals: Temp Pulse Resp BP Pulse Ox 97.1 F L 67 12 123/54 100 01/22/22 08:00 01/22/22 07:56 01/22/22 06:00 01/22/22 07:56 01/22/22 08:00 General appearance: Present: no acute distress HEART Score - HEART Score Troponin: Troponin T 0.078 ng/mL (0.00-0.029) H 01/15/22 Unknown Results - Labs CBC & Chem 7: 01/19/22 04:50 01/19/22 04:50 Labs: Laboratory Last Values WBC 10.1 K/mm3 (4.5-11.0) 01/19/22 04:50 RBC 3.14 M/mm3 (3.65-5.03) L 01/19/22 04:50 Hgb 8.4 gm/dl (10.1-14.3) L 01/19/22 04:50 Hct 26.0 % (30.3-42.9) L 01/19/22 04:50 MCV 83 fl (79-97) 01/19/22 04:50 MCH 27 pg (28-32) L 01/19/22 04:50 MCHC 32 % (30-34) 01/19/22 04:50 RDW 18.2 % (13.2-15.2) H 01/19/22 04:50 Plt Count 222 K/mm3 (140-440) 01/19/22 04:50 Lymph % (Auto) 28.2 % (13.4-35.0) 01/19/22 04:50 [place] % (Auto) 5.3 % (0.0-7.3) 01/19/22 04:50 Eos % (Auto) 3.8 % (0.0-4.3) 01/19/22 04:50 Baso % (Auto) 0.8 % (0.0-1.8) 01/19/22 04:50 Lymph # (Auto) 2.8 K/mm3 (1.2-5.4) 01/19/22 04:50 [place] # (Auto) 0.5 K/mm3 (0.0-0.8) 01/19/22 04:50 Eos # (Auto) 0.4 K/mm3 (0.0-0.4) 01/19/22 04:50 Baso # (Auto) 0.1 K/mm3 (0.0-0.1) 01/19/22 04:50 Add Manual Diff Complete 01/19/22 04:50 Total Counted 100 01/15/22 14:36 Seg Neutrophils % 61.9 % (40.0-70.0) 01/19/22 04:50 Seg Neuts % (Manual) 82.0 % (40.0-70.0) H 01/15/22 14:36 Band Neutrophils % 0 % 01/15/22 14:36 Lymphocytes % (Manual) 11.0 % (13.4-35.0) L 01/15/22 14:36 Reactive Lymphs % (Man) 0 % 01/15/22 14:36 Monocytes % (Manual) 5.0 % (0.0-7.3) 01/15/22 14:36 Eosinophils % (Manual) 1.0 % (0.0-4.3) 01/15/22 14:36 Basophils % (Manual) 1.0 % (0.0-1.8) 01/15/22 14:36 Metamyelocytes % 0 % 01/15/22 14:36 Myelocytes % 0 % 01/15/22 14:36 Promyelocytes % 0 % 01/15/22 14:36 Blast Cells % 0 % 01/15/22 14:36 Nucleated RBC % Not Reportable 01/15/22 14:36 Seg Neutrophils # 6.2 K/mm3 (1.8-7.7) 01/19/22 04:50 Seg Neutrophils # Man 8.8 K/mm3 (1.8-7.7) H 01/15/22 14:36 Band Neutrophils # 0.0 K/mm3 01/15/22 14:36 Lymphocytes # (Manual) 1.2 K/mm3 (1.2-5.4) 01/15/22 14:36 Abs React Lymphs (Man) 0.0 K/mm3 01/15/22 14:36 Monocytes # (Manual) 0.5 K/mm3 (0.0-0.8) 01/15/22 14:36 Eosinophils # (Manual) 0.1 K/mm3 (0.0-0.4) 01/15/22 14:36 Basophils # (Manual) 0.1 K/mm3 (0.0-0.1) 01/15/22 14:36 Metamyelocytes # 0.0 K/mm3 01/15/22 14:36 Myelocytes # 0.0 K/mm3 01/15/22 14:36 Promyelocytes # 0.0 K/mm3 01/15/22 14:36 Blast Cells # 0.0 K/mm3 01/15/22 14:36 WBC Morphology Not Reportable 01/15/22 14:36 Hypersegmented Neuts Not Reportable 01/15/22 14:36 Hyposegmented Neuts Not Reportable 01/15/22 14:36 Hypogranular Neuts Not Reportable 01/15/22 14:36 Smudge Cells Not Reportable 01/15/22 14:36 Toxic Granulation Not Reportable 01/15/22 14:36 Toxic Vacuolation Not Reportable 01/15/22 14:36 Dohle Bodies Not Reportable 01/15/22 14:36 Pelger-Huet Anomaly Not Reportable 01/15/22 14:36 Irina Rods Not Reportable 01/15/22 14:36 Platelet Estimate Consistent w auto 01/15/22 14:36 Clumped Platelets Not Reportable 01/15/22 14:36 Plt Clumps, EDTA Not Reportable 01/15/22 14:36 Large Platelets Not Reportable 01/15/22 14:36 Giant Platelets Not Reportable 01/15/22 14:36 Platelet Satelliting Not Reportable 01/15/22 14:36 Plt Morphology Comment Not Reportable 01/15/22 14:36 RBC Morphology Not Reportable 01/15/22 14:36 Dimorphic RBCs Not Reportable 01/15/22 14:36 Polychromasia Not Reportable 01/15/22 14:36 Hypochromasia Not Reportable 01/15/22 14:36 Poikilocytosis Not Reportable 01/15/22 14:36 Anisocytosis 1+ 01/15/22 14:36 Microcytosis Not Reportable 01/15/22 14:36 Macrocytosis Not Reportable 01/15/22 14:36 Spherocytes Not Reportable 01/15/22 14:36 Pappenheimer Bodies Not Reportable 01/15/22 14:36 Sickle Cells Not Reportable 01/15/22 14:36 Target Cells Not Reportable 01/15/22 14:36 Tear Drop Cells Not Reportable 01/15/22 14:36 Ovalocytes Not Reportable 01/15/22 14:36 Helmet Cells Not Reportable 01/15/22 14:36 Odonnell-[place] Bodies Not Reportable 01/15/22 14:36 Easley Rings Not Reportable 01/15/22 14:36 Malcom Cells Not Reportable 01/15/22 14:36 Bite Cells Not Reportable 01/15/22 14:36 Crenated Cell Not Reportable 01/15/22 14:36 Elliptocytes Not Reportable 01/15/22 14:36 Acanthocytes (Spur) Not Reportable 01/15/22 14:36 Rouleaux Not Reportable 01/15/22 14:36 Hemoglobin C Crystals Not Reportable 01/15/22 14:36 Schistocytes Not Reportable 01/15/22 14:36 Malaria parasites Not Reportable 01/15/22 14:36 Godfrey Bodies Not Reportable 01/15/22 14:36 Hem Pathologist Commnt No 01/15/22 14:36 PT 16.9 Sec. (12.2-14.9) H 01/06/22 04:06 INR 1.23 (0.87-1.13) H 01/06/22 04:06 APTT 29.2 Sec. (24.2-36.6) 11/26/21 05:00 D-Dimer 2655.00 ng/mlDDU (0-234) H 11/11/21 04:28 ABG pH 7.390 pH Units (7.350-7.450) 01/19/22 20:45 ABG pCO2 50.4 mm Hg 01/19/22 20:45 ABG pO2 95.2 mm Hg (80.0-90.0) H 01/19/22 20:45 ABG HCO3 29.8 mmol/L (20.0-26.0) H 01/19/22 20:45 ABG O2 Saturation 97.3 % (95.0-99.0) 01/19/22 20:45 ABG O2 Content 10.9 (0.0-44) 01/19/22 20:45 ABG Base Excess 4.3 mmol/L (-2.0-3.0) H 01/19/22 20:45 ABG Hemoglobin 8.0 gm/dl (12.0-16.0) L 01/19/22 20:45 ABG Carboxyhemoglobin 1.7 % (0.0-5.0) 01/19/22 20:45 ABG Methemoglobin 0.4 % (0.0-1.5) 01/19/22 20:45 Oxyhemoglobin 95.2 % (95.0-99.0) 01/19/22 20:45 FiO2 35 % 01/19/22 20:45 Sodium 134 mmol/L (137-145) L 01/19/22 04:50 Potassium 3.9 mmol/L (3.6-5.0) 01/19/22 04:50 Chloride 95.4 mmol/L (98-107) L 01/19/22 04:50 Carbon Dioxide 29 mmol/L (22-30) 01/19/22 04:50 Anion Gap 14 mmol/L 01/19/22 04:50 BUN 28 mg/dL (7-17) H 01/19/22 04:50 Creatinine 0.6 mg/dL (0.6-1.2) 01/19/22 04:50 Estimated GFR > 60 ml/min 01/19/22 04:50 BUN/Creatinine Ratio 47 % 01/19/22 04:50 Glucose 100 mg/dL (65-100) 01/19/22 04:50 POC Glucose 99 mg/dL (70-105) 01/22/22 05:45 Lactic Acid 3.70 mmol/L (0.7-2.0) H* 11/03/21 22:32 Calcium 8.7 mg/dL (8.4-10.2) 01/19/22 04:50 Phosphorus 3.70 mg/dL (2.5-4.5) 01/19/22 04:50 Magnesium 1.80 mg/dL (1.7-2.3) 01/19/22 04:50 Ferritin 52.6 ng/mL (10.0-200.0) 11/05/21 06:11 Total Bilirubin 0.50 mg/dL (0.1-1.2) 11/17/21 05:56 Direct Bilirubin < 0.2 mg/dL (0-0.2) 11/11/21 04:28 Indirect Bilirubin 0.1 mg/dL 11/11/21 04:28 AST 36 units/L (5-40) 11/17/21 05:56 ALT 47 units/L (7-56) 11/17/21 05:56 Alkaline Phosphatase 107 units/L (35-129) 11/17/21 05:56 Ammonia 42.0 umol/L (25-60) 11/10/21 14:08 Lactate Dehydrogenase 187 units/L (91-180) H 11/05/21 06:11 Troponin T 0.078 ng/mL (0.00-0.029) H 01/15/22 Unknown C-Reactive Protein 22.20 mg/dL (0.00-1.30) H 11/05/21 06:11 NT-Pro-B Natriuret Pep 7895 pg/mL (0-900) H 11/03/21 22:32 Total Protein 5.1 g/dL (6.3-8.2) L 11/17/21 05:56 Albumin 2.2 g/dL (3.9-5) L 11/17/21 05:56 Albumin/Globulin Ratio 0.8 % 11/17/21 05:56 Triglycerides 72 mg/dL (2-149) 01/15/22 21:07 Cholesterol 103 mg/dL (50-199) 01/15/22 21:07 LDL Cholesterol Direct 44 mg/dL (50-130) L 01/15/22 21:07 HDL Cholesterol 46 mg/dL (40-59) 01/15/22 21:07 Cholesterol/HDL Ratio 2.23 % 01/15/22 21:07 Vitamin B12 1823 pg/mL (211-911) H 11/10/21 14:08 TSH 1.510 mlU/mL (0.270-4.200) 11/10/21 14:08 Urine Color Yellow (Yellow) 11/11/21 09:00 Urine Turbidity Slightly-cloudy (Clear) 11/11/21 09:00 Urine pH 5.0 (5.0-7.0) 11/11/21 09:00 Ur Specific [place] 1.009 (1.003-1.030) 11/11/21 09:00 Urine Protein <15 mg/dl mg/dL (Negative) 11/11/21 09:00 Urine Glucose (UA) Neg mg/dL (Negative) 11/11/21 09:00 Urine Ketones Neg mg/dL (Negative) 11/11/21 09:00 Urine Blood Mod (Negative) 11/11/21 09:00 Urine Nitrite Neg (Negative) 11/11/21 09:00 Urine Bilirubin Neg (Negative) 11/11/21 09:00 Urine Urobilinogen < 2.0 mg/dL (<2.0) 11/11/21 09:00 Ur Leukocyte Esterase Neg (Negative) 11/11/21 09:00 Urine WBC (Auto) < 1.0 /HPF (0.0-6.0) 11/11/21 09:00 Urine RBC (Auto) < 1.0 /HPF (0.0-6.0) 11/11/21 09:00 Fluid Type Pleural 01/06/22 13:40 Fluid Color Yellow 01/06/22 13:40 Fluid Appearance Hazy 01/06/22 13:40 Fluid WBC 273 /mm3 01/06/22 13:40 Fluid RBC 45 /mm3 01/06/22 13:40 Fluid Seg Neutrophils 47.0 % 01/06/22 13:40 Fluid Lymphocytes 22.0 % 01/06/22 13:40 Fluid Monocytes 10.0 % 01/06/22 13:40 Fluid Eosinophils 19.0 % 01/06/22 13:40 Fluid Basophils 2.0 % 01/06/22 13:40 Fluid Glucose 96 mg/dL (40-70) H 01/06/22 13:40 Fluid Total Protein < 3.0 (15.0-45.0) L 01/06/22 13:40 Fluid LDH 149 01/06/22 13:40 Vancomycin Trough 15.3 ug/mL (5.0-20.0) 01/16/22 07:30 Random Vancomycin 10.5 ug/mL (0-40.0) 01/04/22 05:00 Coronavirus (PCR) Negative (Negative) 11/10/21 08:30 Blood Type O POSITIVE 12/14/21 10:30 Antibody Screen Negative 12/14/21 10:30 Crossmatch See Detail 12/14/21 10:30 Microbiology: Microbiology 11/03/21 22:57 Peripheral/Venous Blood Culture - Final Beta Hemolytic Strep Group B 01/16/22 Unknown Pleural Fluid - Pleura,Rt Lung Body Fluid Culture - Final Gamble/IV: Voiding Method External Female Catheter Active Medications - Current Medications Current Medications: Generic Name Dose Route Start Last Admin Trade Name Freq PRN Reason Stop Dose Admin Acetaminophen 650 mg 12/14/21 04:12 01/17/22 11:27 Acetaminophen 325 Mg/10.15 Ml Oral Liqd Unit Dose FEEDTUBE 650 mg Q6H PRN Administration Non Cardiac Pain or Temp>100.5 Hydrocodone Bitart/Acetaminophen 1 each 11/21/21 10:00 01/21/22 21:00 Hydrocodone/Acetaminophen 10-325mg Tab FEEDTUBE 1 each TID YOSSI Administration Alprazolam 0.25 mg 01/22/22 03:00 01/22/22 05:02 Alprazolam 0.5 Mg Tab FEEDTUBE 0.25 mg Q8H PRN Administration Agitation Lipase/Protease/Amylase 1 each 11/08/21 11:09 Lipase 10,500/Protease 25,000/Amylase 43,750 (Units) Dr Cap FEEDTUBE PRN PRN For Clogged Feeding Tube Buspirone HCl 7.5 mg 12/30/21 10:00 01/21/22 21:40 Buspirone 5 Mg Tab FEEDTUBE 7.5 mg BID YOSSI Administration Dextrose 50 ml 01/16/22 14:00 Dextrose 50% In Water (25gm) 50 Ml Syringe IV Q30MIN PRN Hypoglycemia Protocol Docusate Sodium 100 mg 12/30/21 10:00 01/21/22 21:45 Docusate Sodium 100 Mg/10 Ml Oral Liqd FEEDTUBE Not Given BID YOSSI Furosemide 20 mg 01/08/22 10:00 01/21/22 10:32 Furosemide 20 Mg Tab PO 20 mg QDAY YOSSI Administration Gabapentin 100 mg 01/22/22 10:00 Gabapentin 500 Mg/10 Ml Oral Liqd FEEDTUBE QDAY YOSSI Hydrophilic Ointment 1 applic 11/06/21 04:02 Lip Therapy Vaseline TP Q2HR PRN Dry Lips Vancomycin HCl 1 gm in 250 mls @ 166.667 mls/hr 01/04/22 10:00 01/20/22 10:52 Vancomycin/Ns 1 Gm/250 Ml IV 01/26/22 11:29 166.667 mls/hr Q48H YOSSI Administration Lansoprazole 30 mg 11/24/21 22:00 01/21/22 21:47 Lansoprazole 30 Mg Solutab FEEDTUBE 30 mg BID YOSSI Administration Levothyroxine Sodium 125 mcg 12/31/21 06:00 01/21/22 08:16 Levothyroxine 125 Mcg Tab FEEDTUBE 125 mcg DAILY@0600 [facility] Administration Melatonin 5 mg 12/05/21 22:00 01/21/22 21:45 Melatonin 5 Mg Tab PO 5 mg QHS [facility] Administration Metoclopramide HCl 10 mg 01/11/22 13:25 01/21/22 21:43 Metoclopramide 10 Mg/2 Ml Inj IV 10 mg Q6H PRN Administration Nausea And Vomiting Metoprolol Tartrate 6.25 mg 12/30/21 10:00 01/21/22 21:20 Metoprolol Tartrate 25 Mg Tab FEEDTUBE 6.25 mg BID YOSSI Administration Midodrine 10 mg 01/21/22 08:00 01/21/22 16:26 Midodrine 5 Mg Tab FEEDTUBE 10 mg TID@0800,1200,1600 [facility] Administration Multi-Ingred Cream/Lotion/Oil/Oint 1 applic 11/06/21 04:02 Mineral Oil/Petrolatum, White Ophth Oint 3.5 Gm OU Q4HR PRN Dry Eye(s) Ondansetron HCl 4 mg 12/05/21 10:00 01/20/22 22:10 Ondansetron 4 Mg/2 Ml Inj IV 4 mg Q8H PRN Administration Nausea And Vomiting Polyethylene Glycol 17 gm 12/30/21 10:00 01/21/22 10:34 Polyethylene Glycol 3350 17 Gm Powder FEEDTUBE Not Given QDAY YOSSI Pravastatin Sodium 20 mg 12/30/21 22:00 01/22/22 05:10 Pravastatin 20 Mg Tab FEEDTUBE 20 mg QHS YOSSI Administration Quetiapine Fumarate 25 mg 12/30/21 10:00 01/21/22 10:32 Quetiapine 25 Mg Tab FEEDTUBE 25 mg QAM YOSSI Administration Quetiapine Fumarate 50 mg 12/30/21 22:00 01/21/22 21:44 Quetiapine 25 Mg Tab FEEDTUBE 50 mg QHS YOSSI Administration Senna 17.6 mg 12/29/21 11:00 01/22/22 05:07 Sennosides Oral Liqd 8.8 Mg/5 Ml Oral Liqd FEEDTUBE Not Given Q12HR YOSSI Simethicone 80 mg 01/15/22 15:06 01/15/22 21:10 Simethicone 80 Mg Chew Tab PO 80 mg PC PRN Administration Gas pain Simple Syrup 15 ml 11/08/21 11:09 Simple Syrup 15 Ml FEEDTUBE PRN PRN Hypoglycemia Simple Syrup 30 ml 11/08/21 11:09 Simple Syrup 15 Ml FEEDTUBE PRN PRN Hypoglycemia Sodium Bicarbonate 325 mg 11/08/21 11:09 01/09/22 20:25 Sodium Bicarbonate 325 Mg Tab FEEDTUBE 325 mg PRN PRN Administration For Clogged Feeding Tube Sodium Chloride 10 ml 11/04/21 10:00 01/22/22 05:14 Sodium Chloride 0.9% 10 Ml Flush Syringe IV 10 ml BID YOSSI Administration Sodium Chloride 10 ml 11/04/21 02:03 01/09/22 06:35 Sodium Chloride 0.9% 10 Ml Flush Syringe IV 10 ml PRN PRN Administration LINE FLUSH Spironolactone 25 mg 12/30/21 10:00 01/21/22 10:32 Spironolactone 25 Mg Tab FEEDTUBE 25 mg QDAY YOSSI Administration Sucralfate 1 gm 12/30/21 12:00 01/22/22 06:51 Sucralfate 1 Gm/10 Ml Oral Liqd FEEDTUBE 1 gm Q6HR YOSSI Administration Trazodone HCl 50 mg 12/04/21 22:00 01/21/22 21:47 Trazodone 50 Mg Tab PO 50 mg QHS YOSSI Administration Nutrition/Malnutrition Assess - Dietary Evaluation Nutrition/Malnutrition Findings: Nutrition Notes Start: 11/04/21 17:16 Freq: Status: Active Protocol: Document 01/19/22 12:15 [facility] (Rec: 01/19/22 12:21 HIALL [id number]) Nutrition Notes Initial or Follow up Reassessment Current Diagnosis Coronary Artery Disease, Diabetes,Hypertension,Heart Failure,Respiratory Failure Other Pertinent Diagnosis Bilat pleural effusion Current Diet TF - Vital AF 1.2 at 35ml/hr Labs/Tests Na 134 BUN 28 Pertinent Medications Reviewed Height 5 ft Weight 62.3 kg Peck Body Weight (kg) 45.45 BMI 26.8 Weight Status Overweight Subjective/Other Information Observing TF infusing at 35ml/ hr; per, RN, pt tolerating TF. One BM reported this am. Pt on trach collar support at time of visit (10:50). Percent of energy/protein needs met: 84% energy and pro Burn Absent Trauma Absent #2 Nutrition Diagnosis Inadequate enteral nutrition infusion As Evidenced by Signs and Symptoms current TF rate provides at least 75% energy and pro needs Diagnosis Progress(for reassessment Resolved documentation) #1 Nutrition Diagnosis Inadequate oral intake Diagnosis Progress(for reassessment Continues documentation) Is patient on ventilator? No Is Patient Ambulatory and/or Out of Bed No REE-([facility]-confined to bed) [phone] Calculation Used for Recommendations [facility] Additional Notes Pro needs 1.2-2g/k-125g/ day Fluid needs 1ml/kcal Nutrition Intervention Nutrition Support: Continue Vital AF 1.2 at 35ml/ hr with 50ml water flush q4h. Kcal 1,008 Protein (gm) 63 Carbohydrates (gm) 45 Fat (gm) 45 Fluid (mL) 681 Fiber (gm) 4 Add Supplement/Snack (indicate name/kcal Jaswant BID /protein ) Provides kCal: 190 Provides Protein (gm) 5 Goal #1 TF tolerance Goal #2 TF to meet at least 75% energy and pro needs Goal #3 Wound healing Follow-Up By: 01/26/22 Additional Comments F/U: stable TF, wt, vent status, wound healing/Jaswant administration
[2022-01-22] MEDS: SPIRONOLACTONE 25 MG TAB FEEDTUBE SCH (10:25)
[2022-01-22] MEDS: LANSOPRAZOLE 30 MG SOLUTAB FEEDTUBE SCH ×2 (10:25→22:39)
[2022-01-22] MEDS: HYDROcodone/ACETAMINOPHEN 10-325MG TAB FEEDTUBE SCH ×3 (10:26→22:40)
[2022-01-22] MEDS: METOPROLOL TARTRATE 25 MG TAB FEEDTUBE SCH ×2 (10:26→22:40)
[2022-01-22] MEDS: FUROSEMIDE 20 MG TAB PO SCH (10:26)
[2022-01-22] MEDS: QUEtiapine 25 MG TAB FEEDTUBE SCH ×2 (10:26→22:38)
[2022-01-22] MEDS: busPIRone 5 MG TAB FEEDTUBE SCH ×2 (10:27→22:38)
[2022-01-22] MEDS: VANCOMYCIN/NS 1 GM/250 ML 1 GM/250 ML BAG IV SCH (10:33)
[2022-01-22] MEDS: MIDODRINE 5 MG TAB FEEDTUBE SCH ×3 (13:25→17:28)
[2022-01-22] MEDS: POLYETHYLENE GLYCOL 3350 17 GM POWDER FEEDTUBE SCH (13:26)
[2022-01-22] MEDS: DOCUSATE SODIUM 100 MG/10 ML ORAL LIQD FEEDTUBE SCH ×2 (13:26→22:39)
[2022-01-22] MEDS: GABAPENTIN 500 MG/10 ML ORAL LIQD FEEDTUBE SCH (17:28)
--- NOTE | 2022-01-22 18:03 | Progress Note ---
Assessment and Plan 81-year-old female with known history of diabetes mellitus, hypertension and arthritis brought to the emergency room via EMS for shortness of breath which has been ongoing for the past 3 days prior to come to the emergency room. Patient has been having some cough and shortness of breath. According to patient's , patient has also been having a fever of about 102.2 F. Upon arrival of EMS patient was found to be tachypneic with O2 saturation of 76% on room air which later improved to 88% on nonrebreather. Work-up in the emergency room , chest x-ray shows bilateral interstitial pulmonary edema with bilateral pleural effusions.. Bibasilar opacities which favors atelectasis. Lab reveals leukocytosis of 29. Hemoglobin of 6.1. Patient received blood transfusion and also checked for COVID-19. Patient Ivy virus test reported negative. Patient intubated and placed on mechanical ventilation. Patient transfered to ICU. Patient undergone thoracentesis and chest tube placement. Patient still on mechanical ventilation. Patient transfered to [facility]. Patient sleeping on T tube ,FIO2 28% and O2 saturation running 99%. Patient afebrile. No leukocytosis.Blood pressure 114/51 Pulse 60 , respirations 19 Patients recent HGB 8.4 01/19/22 Chest xray 12/11/21 reported Diffuse bilateral pulmonary opacities most significant in the left lung and right upper lung .No pneumothorax. Chest xray done 01/01/22 reported Worsening bilateral pulmonary opacities and effusions Chest xray 01/05/22 reported Diffuse bilateral pleuroparenchymal opacities, right greater than left, are similar to the prior exam. No pneumothorax. Patient undergone thoracentesis under Ultrasound guidance. Repeat chest xray post thoracentesis 01/06/22 reported Near complete evacuation of the right pleural effusion. No pneumothorax. Pleural fluid cell count wbc 273, RBC 45 Pleural fluid chemistry Protein less than 3, [id number], Glucose 96. Pleural fluid is transudate. Repeat chest xray 01/16/22 reported Diffuse bilateral pulmonary opacities and effusions. Right PICC line tip overlies distal SVC. Small right chest tube is noted without large pneumothorax Chest xray done 01/19/22 reported stable diffuse bilateral interstitial infiltrates and small effusions. Chest xray 01/21/22 reported Mildly improved pulmonary edema and bilateral pleural effusions. No pneumothorax. Patient is on Vancomycin, Prevacid and Sucralfate. Recommend SCDs. Patient is on tube feeding. I spent critical care time of 33 minutes, reviewing the chart, examine the patient, review lab results, chest xray and talk to respiratory therapy and nursing staff and work out plan of treatment in this critically ill patient. - Patient Problems (1) Acute respiratory failure with hypoxia Current Visit: Yes Status: Acute Plan to address problem: Patient presently on T tube, FIO2 28% and O2 saturation running 99%. (2) Bilateral pneumonia Current Visit: Yes Status: Acute Plan to address problem: Patient is on vancomycin. (3) Occult blood positive stool Current Visit: Yes Status: Acute Plan to address problem: Management as per gastroenterology. (4) Acute anemia Current Visit: Yes Status: Acute Plan to address problem: Patient received blood transfusion. HGB 8.4 on 01/19/22. (5) Suspected COVID-19 virus infection Current Visit: Yes Status: Acute Plan to address problem: Ivy virus PCR negative. (6) Pleural effusion Current Visit: Yes Status: Acute Plan to address problem: Patient unergone right thoracentesis under ultrasound guidance. Post thoracentesis chest xray reported Near complete evacuation of the right pleural effusion. No pneumothorax. Pleural fluid cell count wbc 273, RBC 45 Pleural fluid chemistry Protein less than 3, [id number], Glucose 96. Pleural fluid is transudate. Subjective Date of service: 01/22/22 Principal diagnosis: Septic shock; AHRF; Anemia; Pneumonia; pleural effusion; HFrEF; Pulm HTN Interval history: 81-year-old female with known history of diabetes mellitus, hypertension and arthritis brought to the emergency room via EMS for shortness of breath which has been ongoing for the past 3 days prior to come to the emergency room. Patien dejan has been having some cough and shortness of breath. According to patient's , patient has also been having a fever of about 102.2 F. Upon arrival of EMS patient was found to be tachypneic with O2 saturation of 76% on room air which later improved to 88% on nonrebreather. Work-up in the emergency room , chest x-ray shows bilateral interstitial pulmonary edema with bilateral pleural effusions.. Bibasilar opacities which favors atelectasis. Lab reveals leukocytosis of 29. Hemoglobin of 6.1. Patient received blood transfusion and also checked for COVID-19. Patient Ivy virus test reported negative. Patient intubated and placed on mechanical ventilation. Patient transfered to [facility]. Patient undergone thoracentesis and chest tube placement. Patient still on mechanical ventilation. Patient transfered to [facility]. Patient sleeping on T tube ,FIO2 28% and O2 saturation running 99%. Patient afebrile. No leukocytosis.Blood pressure 114/51 Pulse 60 , respirations 19 Patients recent HGB 8.4 01/19/22 Chest xray 12/11/21 reported Diffuse bilateral pulmonary opacities most significant in the left lung and right upper lung .No pneumothorax. Chest xray done 01/01/22 reported Worsening bilateral pulmonary opacities and effusions Chest xray 01/05/22 reported Diffuse bilateral pleuroparenchymal opacities, right greater than left, are similar to the prior exam. No pneumothorax. Patient undergone thoracentesis under Ultrasound guidance. Repeat chest xray post thoracentesis 01/06/22 reported Near complete evacuation of the right pleural effusion. No pneumothorax. Pleural fluid cell count wbc 273, RBC 45 Pleural fluid chemistry Protein less than 3, [id number], Glucose 96. Pleural fluid is transudate. Repeat chest xray 01/16/22 reported Diffuse bilateral pulmonary opacities and effusions. Right PICC line tip overlies distal SVC. Small right chest tube is noted without large pneumothorax Chest xray done 01/19/22 reported stable diffuse bilateral interstitial infiltrat es and small effusions. Chest xray 01/21/22 reported Mildly improved pulmonary edema and bilateral pleural effusions. No pneumothorax. Patient is on Vancomycin, Prevacid and Sucralfate. Recommend SCDs. Patient is on tube feeding. Objective Vital Signs - 12hr 01/22/22 01/22/22 01/22/22 07:00 07:56 08:00 Temperature 97.1 F L Pulse Rate 64 67 68 Pulse Rate [ 65 From Monitor] Respiratory 12 12 Rate Blood Pressure 117/51 123/54 123/54 O2 Sat by Pulse 100 100 98 Oximetry O2 Sat by Pulse 100 Oximetry [ Assessment] 01/22/22 01/22/22 01/22/22 09:00 10:00 10:25 Temperature Pulse Rate 71 76 77 Pulse Rate [ From Monitor] Respiratory 12 13 Rate Blood Pressure 123/58 128/62 128/62 O2 Sat by Pulse 100 99 Oximetry O2 Sat by Pulse Oximetry [ Assessment] 01/22/22 01/22/22 01/22/22 10:26 11:00 12:00 Temperature Pulse Rate 77 73 70 Pulse Rate [ 62 From Monitor] Respiratory 12 15 Rate Blood Pressure 128/62 131/58 106/46 O2 Sat by Pulse 100 99 Oximetry O2 Sat by Pulse Oximetry [ Assessment] 01/22/22 01/22/22 01/22/22 13:00 14:00 15:00 Temperature Pulse Rate 101 H 65 64 Pulse Rate [ From Monitor] Respiratory 22 16 17 Rate Blood Pressure 179/98 137/59 106/48 O2 Sat by Pulse 91 100 99 Oximetry O2 Sat by Pulse Oximetry [ Assessment] 01/22/22 01/22/22 01/22/22 15:59 16:00 17:00 Temperature 97.9 F Pulse Rate 69 64 Pulse Rate [ 64 From Monitor] Respiratory 16 17 Rate Blood Pressure 114/55 118/55 O2 Sat by Pulse 99 99 Oximetry O2 Sat by Pulse Oximetry [ Assessment] Constitutional: no acute distress, asleep, other (Resting on T tube, FIO2 28%) Eyes: non-icteric ENT: oropharynx moist, other (+ Midline tracheostomy with minimal secretions) Neck: supple, no lymphadenopathy, no JVD Effort: mildly labored Ascultation: Bilateral: diminished breath sounds, rhonchi, other (Right chest tube) Percussion: Right: not dull, Left: dull (bases) Cardiovascular: regular rate and rhythm, other (S1,S2) Gastrointestinal: normoactive bowel sounds, soft, non-tender, non-distended (protuberant) Integumentary: normal Extremities: no cyanosis, pink and warm, pulses normal, edema (upper etremities), anasarca Neurologic: non-focal exam (grossly), pupils equal and round, CN II-XII normal Psychiatric: mood appropriate, anxious CBC and BMP: 01/19/22 04:50 01/19/22 04:50 ABG, PT/INR, D-dimer: ABG ABG pH 7.390 pH Units (7.350-7.450) 01/19/22 20:45 ABG pCO2 50.4 mm Hg 01/19/22 20:45 ABG pO2 95.2 mm Hg (80.0-90.0) H 01/19/22 20:45 ABG O2 Saturation 97.3 % (95.0-99.0) 01/19/22 20:45 PT/INR, D-dimer PT 16.9 Sec. (12.2-14.9) H 01/06/22 04:06 INR 1.23 (0.87-1.13) H 01/06/22 04:06 D-Dimer 2655.00 ng/mlDDU (0-234) H 11/11/21 04:28 Abnormal lab findings: Abnormal Labs 11/03/21 11/03/21 11/03/21 22:32 22:32 22:32 WBC 29.3 H RBC 2.93 L Hgb 6.1 L Hct 21.9 L MCV 75 L MCH 21 L MCHC 28 L RDW 19.7 H Plt Count Seg Neuts % (Manual) 97.0 H Lymphocytes % (Manual) 3.0 L Seg Neutrophils # Man 28.4 H Lymphocytes # (Manual) 0.9 L Monocytes # (Manual) PT 18.6 H INR 1.40 H D-Dimer ABG pH ABG pO2 ABG HCO3 ABG O2 Saturation ABG Base Excess ABG Hemoglobin Oxyhemoglobin Sodium Potassium Chloride Carbon Dioxide 20 L BUN 33 H Creatinine Glucose 119 H POC Glucose Lactic Acid Calcium 8.3 L Phosphorus Magnesium AST ALT Alkaline Phosphatase Lactate Dehydrogenase Troponin T 0.035 H C-Reactive Protein NT-Pro-B Natriuret Pep Total Protein Albumin LDL Cholesterol Direct 34 L Vitamin B12 Fluid Glucose Fluid Total Protein Vancomycin Trough Crossmatch 11/03/21 11/03/21 11/03/21 22:32 22:32 23:57 WBC RBC Hgb Hct MCV MCH MCHC RDW Plt Count Seg Neuts % (Manual) Lymphocytes % (Manual) Seg Neutrophils # Man Lymphocytes # (Manual) Monocytes # (Manual) PT INR D-Dimer ABG pH ABG pO2 ABG HCO3 ABG O2 Saturation ABG Base Excess ABG Hemoglobin Oxyhemoglobin Sodium Potassium Chloride Carbon Dioxide BUN Creatinine Glucose POC Glucose Lactic Acid 3.70 H* Calcium Phosphorus Magnesium AST ALT Alkaline Phosphatase 139 H Lactate Dehydrogenase Troponin T C-Reactive Protein NT-Pro-B Natriuret Pep 7895 H Total Protein Albumin 3.5 L LDL Cholesterol Direct Vitamin B12 Fluid Glucose Fluid Total Protein Vancomycin Trough Crossmatch See Detail 11/04/21 11/04/21 11/05/21 00:59 13:58 00:51 WBC 27.9 H RBC 3.28 L Hgb 7.3 L Hct 25.5 L MCV 78 L MCH 22 L MCHC 29 L RDW 19.1 H Plt Count Seg Neuts % (Manual) 96.0 H Lymphocytes % (Manual) 2.0 L Seg Neutrophils # Man 26.8 H Lymphocytes # (Manual) 0.6 L Monocytes # (Manual) PT INR D-Dimer ABG pH ABG pO2 ABG HCO3 ABG O2 Saturation ABG Base Excess ABG Hemoglobin Oxyhemoglobin Sodium Potassium Chloride Carbon Dioxide BUN Creatinine Glucose POC Glucose Lactic Acid Calcium Phosphorus Magnesium AST ALT Alkaline Phosphatase Lactate Dehydrogenase Troponin T 0.051 H D 0.032 H D C-Reactive Protein NT-Pro-B Natriuret Pep Total Protein Albumin LDL Cholesterol Direct Vitamin B12 Fluid Glucose Fluid Total Protein Vancomycin Trough Crossmatch 11/05/21 11/05/21 11/05/21 06:11 06:11 06:11 WBC 31.8 H RBC 3.57 L Hgb 8.0 L Hct 27.7 L MCV 78 L MCH 22 L MCHC 29 L RDW 19.2 H Plt Count Seg Neuts % (Manual) 91.0 H Lymphocytes % (Manual) 4.5 L Seg Neutrophils # Man 28.9 H Lymphocytes # (Manual) Monocytes # (Manual) 1.1 H PT INR D-Dimer 1494.53 H ABG pH ABG pO2 ABG HCO3 ABG O2 Saturation ABG Base Excess ABG Hemoglobin Oxyhemoglobin Sodium Potassium Chloride Carbon Dioxide 19 L BUN 42 H Creatinine Glucose 115 H POC Glucose Lactic Acid Calcium Phosphorus Magnesium AST 43 H ALT Alkaline Phosphatase Lactate Dehydrogenase 187 H Troponin T C-Reactive Protein 22.20 H NT-Pro-B Natriuret Pep Total Protein 6.0 L Albumin 3.2 L LDL Cholesterol Direct Vitamin B12 Fluid Glucose Fluid Total Protein Vancomycin Trough Crossmatch 11/05/21 11/05/21 11/06/21 06:11 12:15 00:30 WBC RBC Hgb Hct MCV MCH MCHC RDW Plt Count Seg Neuts % (Manual) Lymphocytes % (Manual) Seg Neutrophils # Man Lymphocytes # (Manual) Monocytes # (Manual) PT INR D-Dimer ABG pH ABG pO2 ABG HCO3 ABG O2 Saturation ABG Base Excess ABG Hemoglobin Oxyhemoglobin Sodium Potassium Chloride Carbon Dioxide BUN Creatinine Glucose POC Glucose 113 H 69 L Lactic Acid Calcium Phosphorus Magnesium AST ALT Alkaline Phosphatase Lactate Dehydrogenase Troponin T 0.033 H C-Reactive Protein NT-Pro-B Natriuret Pep Total Protein Albumin LDL Cholesterol Direct Vitamin B12 Fluid Glucose Fluid Total Protein Vancomycin Trough Crossmatch 11/06/21 11/06/21 11/06/21 05:50 15:50 15:50 WBC 25.5 H RBC 3.62 L Hgb 8.0 L Hct 27.5 L MCV 76 L MCH 22 L MCHC 29 L RDW 19.6 H Plt Count Seg Neuts % (Manual) 92.0 H Lymphocytes % (Manual) 5.0 L Seg Neutrophils # Man 23.5 H Lymphocytes # (Manual) Monocytes # (Manual) PT INR D-Dimer ABG pH 7.305 L ABG pO2 ABG HCO3 15.8 L ABG O2 Saturation ABG Base Excess -9.6 L ABG Hemoglobin 8.6 L Oxyhemoglobin 94.6 L Sodium Potassium Chloride 113.9 H Carbon Dioxide 17 L BUN 56 H Creatinine Glucose 114 H POC Glucose Lactic Acid Calcium 7.9 L Phosphorus Magnesium AST 1410 H ALT 934 H Alkaline Phosphatase 142 H Lactate Dehydrogenase Troponin T C-Reactive Protein NT-Pro-B Natriuret Pep Total Protein 5.0 L Albumin 2.6 L LDL Cholesterol Direct Vitamin B12 Fluid Glucose Fluid Total Protein Vancomycin Trough Crossmatch 11/07/21 11/07/21 11/07/21 03:30 04:50 08:07 WBC RBC Hgb Hct MCV MCH MCHC RDW Plt Count Seg Neuts % (Manual) Lymphocytes % (Manual) Seg Neutrophils # Man Lymphocytes # (Manual) Monocytes # (Manual) PT INR D-Dimer ABG pH ABG pO2 296.9 H ABG HCO3 18.1 L ABG O2 Saturation 99.5 H ABG Base Excess -5.9 L ABG Hemoglobin 7.6 L Oxyhemoglobin Sodium Potassium Chloride Carbon Dioxide BUN Creatinine Glucose POC Glucose 106 H 108 H Lactic Acid Calcium Phosphorus Magnesium AST ALT Alkaline Phosphatase Lactate Dehydrogenase Troponin T C-Reactive Protein NT-Pro-B Natriuret Pep Total Protein Albumin LDL Cholesterol Direct Vitamin B12 Fluid Glucose Fluid Total Protein Vancomycin Trough Crossmatch 11/08/21 11/08/21 11/08/21 03:10 18:05 23:43 WBC RBC Hgb Hct MCV MCH MCHC RDW Plt Count Seg Neuts % (Manual) Lymphocytes % (Manual) Seg Neutrophils # Man Lymphocytes # (Manual) Monocytes # (Manual) PT INR D-Dimer ABG pH ABG pO2 127.4 H ABG HCO3 ABG O2 Saturation ABG Base Excess -3.4 L ABG Hemoglobin 7.4 L Oxyhemoglobin Sodium Potassium Chloride Carbon Dioxide BUN Creatinine Glucose POC Glucose 113 H 141 H Lactic Acid Calcium Phosphorus Magnesium AST ALT Alkaline Phosphatase Lactate Dehydrogenase Troponin T C-Reactive Protein NT-Pro-B Natriuret Pep Total Protein Albumin LDL Cholesterol Direct Vitamin B12 Fluid Glucose Fluid Total Protein Vancomycin Trough Crossmatch 11/08/21 11/08/21 11/09/21 Unknown Unknown 02:00 WBC 14.5 H RBC 3.35 L Hgb 7.5 L 8.1 L Hct 25.4 L 27.6 L MCV 76 L 76 L MCH 23 L 22 L MCHC RDW 19.9 H 19.9 H Plt Count Seg Neuts % (Manual) Lymphocytes % (Manual) Seg Neutrophils # Man Lymphocytes # (Manual) Monocytes # (Manual) PT INR D-Dimer ABG pH ABG pO2 ABG HCO3 ABG O2 Saturation ABG Base Excess ABG Hemoglobin Oxyhemoglobin Sodium 154 H D Potassium 3.3 L Chloride 120.7 H Carbon Dioxide 20 L BUN 38 H Creatinine Glucose POC Glucose Lactic Acid Calcium 8.3 L Phosphorus Magnesium AST ALT Alkaline Phosphatase Lactate Dehydrogenase Troponin T C-Reactive Protein NT-Pro-B Natriuret Pep Total Protein Albumin LDL Cholesterol Direct Vitamin B12 Fluid Glucose Fluid Total Protein Vancomycin Trough Crossmatch 11/09/21 11/09/21 11/09/21 02:00 02:31 05:12 WBC RBC Hgb Hct MCV MCH MCHC RDW Plt Count Seg Neuts % (Manual) Lymphocytes % (Manual) Seg Neutrophils # Man Lymphocytes # (Manual) Monocytes # (Manual) PT INR D-Dimer ABG pH 7.479 H ABG pO2 121.3 H ABG HCO3 ABG O2 Saturation ABG Base Excess ABG Hemoglobin 7.3 L Oxyhemoglobin Sodium Potassium Chloride 112.5 H Carbon Dioxide BUN 33 H Creatinine Glucose 161 H POC Glucose 135 H Lactic Acid Calcium Phosphorus Magnesium AST 251 H ALT 481 H Alkaline Phosphatase Lactate Dehydrogenase Troponin T C-Reactive Protein NT-Pro-B Natriuret Pep Total Protein 5.0 L Albumin 2.8 L LDL Cholesterol Direct Vitamin B12 Fluid Glucose Fluid Total Protein Vancomycin Trough Crossmatch 11/09/21 11/09/2122 11:33 16:32 23:28 WBC RBC Hgb Hct MCV MCH MCHC RDW Plt Count Seg Neuts % (Manual) Lymphocytes % (Manual) Seg Neutrophils # Man Lymphocytes # (Manual) Monocytes # (Manual) PT INR D-Dimer ABG pH ABG pO2 ABG HCO3 ABG O2 Saturation ABG Base Excess ABG Hemoglobin Oxyhemoglobin Sodium Potassium Chloride Carbon Dioxide BUN Creatinine Glucose POC Glucose 132 H 133 H 143 H Lactic Acid Calcium Phosphorus Magnesium AST ALT Alkaline Phosphatase Lactate Dehydrogenase Troponin T C-Reactive Protein NT-Pro-B Natriuret Pep Total Protein Albumin LDL Cholesterol Direct Vitamin B12 Fluid Glucose Fluid Total Protein Vancomycin Trough Crossmatch 11/10/21 11/10/21 11/10/21 04:00 04:00 05:35 WBC 16.0 H RBC 3.61 L Hgb 8.0 L Hct 27.1 L MCV 75 L MCH 22 L MCHC RDW 20.4 H Plt Count Seg Neuts % (Manual) Lymphocytes % (Manual) Seg Neutrophils # Man Lymphocytes # (Manual) Monocytes # (Manual) PT INR D-Dimer ABG pH ABG pO2 ABG HCO3 ABG O2 Saturation ABG Base Excess ABG Hemoglobin Oxyhemoglobin Sodium 149 H Potassium Chloride 114.1 H Carbon Dioxide BUN 31 H Creatinine Glucose 148 H POC Glucose 132 H Lactic Acid Calcium 8.2 L Phosphorus Magnesium AST ALT Alkaline Phosphatase Lactate Dehydrogenase Troponin T C-Reactive Protein NT-Pro-B Natriuret Pep Total Protein Albumin LDL Cholesterol Direct Vitamin B12 Fluid Glucose Fluid Total Protein Vancomycin Trough Crossmatch 11/10/21 11/10/21 11/10/21 11:31 14:08 15:35 WBC RBC Hgb Hct MCV MCH MCHC RDW Plt Count Seg Neuts % (Manual) Lymphocytes % (Manual) Seg Neutrophils # Man Lymphocytes # (Manual) Monocytes # (Manual) PT INR D-Dimer ABG pH ABG pO2 126.6 H ABG HCO3 ABG O2 Saturation ABG Base Excess ABG Hemoglobin 7.4 L Oxyhemoglobin Sodium Potassium Chloride Carbon Dioxide BUN Creatinine Glucose POC Glucose 147 H Lactic Acid Calcium Phosphorus Magnesium AST ALT Alkaline Phosphatase Lactate Dehydrogenase Troponin T C-Reactive Protein NT-Pro-B Natriuret Pep Total Protein Albumin LDL Cholesterol Direct Vitamin B12 1823 H Fluid Glucose Fluid Total Protein Vancomycin Trough Crossmatch 11/10/21 11/11/21 11/11/21 17:53 00:55 04:28 WBC RBC Hgb Hct MCV MCH MCHC RDW Plt Count Seg Neuts % (Manual) Lymphocytes % (Manual) Seg Neutrophils # Man Lymphocytes # (Manual) Monocytes # (Manual) PT INR D-Dimer ABG pH ABG pO2 ABG HCO3 ABG O2 Saturation ABG Base Excess ABG Hemoglobin Oxyhemoglobin Sodium 149 H Potassium Chloride 112.2 H Carbon Dioxide BUN 34 H Creatinine Glucose 148 H POC Glucose 140 H 145 H Lactic Acid Calcium 7.9 L Phosphorus Magnesium AST 53 H ALT 203 H Alkaline Phosphatase Lactate Dehydrogenase Troponin T C-Reactive Protein NT-Pro-B Natriuret Pep Total Protein 4.9 L Albumin 2.6 L LDL Cholesterol Direct Vitamin B12 Fluid Glucose Fluid Total Protein Vancomycin Trough Crossmatch 11/11/21 11/11/21 11/11/21 04:28 04:28 05:28 WBC 20.9 H RBC 3.47 L Hgb 7.5 L Hct 26.0 L MCV 75 L MCH 22 L MCHC 29 L RDW 21.6 H Plt Count 132 L Seg Neuts % (Manual) Lymphocytes % (Manual) Seg Neutrophils # Man Lymphocytes # (Manual) Monocytes # (Manual) PT INR D-Dimer 2655.00 H ABG pH ABG pO2 ABG HCO3 ABG O2 Saturation ABG Base Excess ABG Hemoglobin Oxyhemoglobin Sodium Potassium Chloride Carbon Dioxide BUN Creatinine Glucose POC Glucose 154 H Lactic Acid Calcium Phosphorus Magnesium AST ALT Alkaline Phosphatase Lactate Dehydrogenase Troponin T C-Reactive Protein NT-Pro-B Natriuret Pep Total Protein Albumin LDL Cholesterol Direct Vitamin B12 Fluid Glucose Fluid Total Protein Vancomycin Trough Crossmatch 11/11/21 11/11/21 11/12/21 12:38 18:13 00:14 WBC RBC Hgb Hct MCV MCH MCHC RDW Plt Count Seg Neuts % (Manual) Lymphocytes % (Manual) Seg Neutrophils # Man Lymphocytes # (Manual) Monocytes # (Manual) PT INR D-Dimer ABG pH ABG pO2 ABG HCO3 ABG O2 Saturation ABG Base Excess ABG Hemoglobin Oxyhemoglobin Sodium Potassium Chloride Carbon Dioxide BUN Creatinine Glucose POC Glucose 137 H 108 H 137 H Lactic Acid Calcium Phosphorus Magnesium AST ALT Alkaline Phosphatase Lactate Dehydrogenase Troponin T C-Reactive Protein NT-Pro-B Natriuret Pep Total Protein Albumin LDL Cholesterol Direct Vitamin B12 Fluid Glucose Fluid Total Protein Vancomycin Trough Crossmatch 11/12/21 11/12/2122 05:40 06:24 11:12 WBC RBC Hgb Hct MCV MCH MCHC RDW Plt Count Seg Neuts % (Manual) Lymphocytes % (Manual) Seg Neutrophils # Man Lymphocytes # (Manual) Monocytes # (Manual) PT INR D-Dimer ABG pH 7.586 H ABG pO2 150.6 H ABG HCO3 27.2 H ABG O2 Saturation 99.1 H ABG Base Excess 5.2 H ABG Hemoglobin 7.5 L Oxyhemoglobin Sodium Potassium Chloride Carbon Dioxide BUN Creatinine Glucose POC Glucose 132 H 140 H Lactic Acid Calcium Phosphorus Magnesium AST ALT Alkaline Phosphatase Lactate Dehydrogenase Troponin T C-Reactive Protein NT-Pro-B Natriuret Pep Total Protein Albumin LDL Cholesterol Direct Vitamin B12 Fluid Glucose Fluid Total Protein Vancomycin Trough Crossmatch 11/12/21 11/12/21 11/12/21 14:50 14:50 17:13 WBC 19.8 H RBC 3.27 L Hgb 7.1 L Hct 24.5 L MCV 75 L MCH 22 L MCHC 29 L RDW 22.3 H Plt Count Seg Neuts % (Manual) Lymphocytes % (Manual) Seg Neutrophils # Man Lymphocytes # (Manual) Monocytes # (Manual) PT INR D-Dimer ABG pH ABG pO2 ABG HCO3 ABG O2 Saturation ABG Base Excess ABG Hemoglobin Oxyhemoglobin Sodium 150 H Potassium 3.3 L Chloride 112.0 H Carbon Dioxide BUN 40 H Creatinine Glucose 151 H POC Glucose 121 H Lactic Acid Calcium 7.4 L Phosphorus 1.70 L Magnesium 1.40 L AST ALT Alkaline Phosphatase Lactate Dehydrogenase Troponin T C-Reactive Protein NT-Pro-B Natriuret Pep Total Protein Albumin LDL Cholesterol Direct Vitamin B12 Fluid Glucose Fluid Total Protein Vancomycin Trough Crossmatch 11/12/21 11/13/21 11/13/21 23:19 05:34 06:30 WBC RBC Hgb Hct MCV MCH MCHC RDW Plt Count Seg Neuts % (Manual) Lymphocytes % (Manual) Seg Neutrophils # Man Lymphocytes # (Manual) Monocytes # (Manual) PT INR D-Dimer ABG pH ABG pO2 ABG HCO3 ABG O2 Saturation ABG Base Excess ABG Hemoglobin Oxyhemoglobin Sodium 149 H Potassium Chloride 60.0 L Carbon Dioxide BUN 40 H Creatinine Glucose 146 H POC Glucose 113 H 132 H Lactic Acid Calcium 7.3 L Phosphorus Magnesium 2.40 H AST ALT 72 H Alkaline Phosphatase Lactate Dehydrogenase Troponin T C-Reactive Protein NT-Pro-B Natriuret Pep Total Protein 5.2 L Albumin 2.2 L LDL Cholesterol Direct Vitamin B12 Fluid Glucose Fluid Total Protein Vancomycin Trough Crossmatch 11/13/21 11/13/21 11/13/21 06:30 08:30 11:19 WBC 21.2 H RBC 3.12 L Hgb 6.8 L Hct 23.2 L MCV 74 L MCH 22 L MCHC 29 L RDW 22.2 H Plt Count 135 L Seg Neuts % (Manual) Lymphocytes % (Manual) Seg Neutrophils # Man Lymphocytes # (Manual) Monocytes # (Manual) PT INR D-Dimer ABG pH ABG pO2 ABG HCO3 ABG O2 Saturation ABG Base Excess ABG Hemoglobin Oxyhemoglobin Sodium Potassium Chloride Carbon Dioxide BUN Creatinine Glucose POC Glucose 136 H Lactic Acid Calcium Phosphorus Magnesium AST ALT Alkaline Phosphatase Lactate Dehydrogenase Troponin T C-Reactive Protein NT-Pro-B Natriuret Pep Total Protein Albumin LDL Cholesterol Direct Vitamin B12 Fluid Glucose Fluid Total Protein Vancomycin Trough Crossmatch See Detail 11/13/21 11/14/21 11/14/21 18:21 00:01 04:46 WBC 20.0 H RBC 3.41 L Hgb 7.9 L Hct 26.8 L MCV MCH 23 L MCHC 29 L RDW 24.0 H Plt Count Seg Neuts % (Manual) Lymphocytes % (Manual) Seg Neutrophils # Man Lymphocytes # (Manual) Monocytes # (Manual) PT INR D-Dimer ABG pH ABG pO2 ABG HCO3 ABG O2 Saturation ABG Base Excess ABG Hemoglobin Oxyhemoglobin Sodium Potassium Chloride Carbon Dioxide BUN Creatinine Glucose POC Glucose 149 H 141 H Lactic Acid Calcium Phosphorus Magnesium AST ALT Alkaline Phosphatase Lactate Dehydrogenase Troponin T C-Reactive Protein NT-Pro-B Natriuret Pep Total Protein Albumin LDL Cholesterol Direct Vitamin B12 Fluid Glucose Fluid Total Protein Vancomycin Trough Crossmatch 11/14/21 11/14/21 11/14/21 04:46 05:10 11:10 WBC RBC Hgb Hct MCV MCH MCHC RDW Plt Count Seg Neuts % (Manual) Lymphocytes % (Manual) Seg Neutrophils # Man Lymphocytes # (Manual) Monocytes # (Manual) PT INR D-Dimer ABG pH ABG pO2 ABG HCO3 ABG O2 Saturation ABG Base Excess ABG Hemoglobin Oxyhemoglobin Sodium 148 H Potassium Chloride 113.1 H Carbon Dioxide BUN 43 H Creatinine Glucose 140 H POC Glucose 132 H 133 H Lactic Acid Calcium 7.5 L Phosphorus Magnesium AST ALT Alkaline Phosphatase Lactate Dehydrogenase Troponin T C-Reactive Protein NT-Pro-B Natriuret Pep Total Protein Albumin LDL Cholesterol Direct Vitamin B12 Fluid Glucose Fluid Total Protein Vancomycin Trough Crossmatch 11/14/21 11/14/21 11/14/21 16:14 17:48 23:23 WBC RBC Hgb Hct MCV MCH MCHC RDW Plt Count Seg Neuts % (Manual) Lymphocytes % (Manual) Seg Neutrophils # Man Lymphocytes # (Manual) Monocytes # (Manual) PT INR D-Dimer ABG pH ABG pO2 ABG HCO3 28.0 H ABG O2 Saturation ABG Base Excess 3.1 H ABG Hemoglobin 5.8 L Oxyhemoglobin 94.8 L Sodium Potassium Chloride Carbon Dioxide BUN Creatinine Glucose POC Glucose 130 H 136 H Lactic Acid Calcium Phosphorus Magnesium AST ALT Alkaline Phosphatase Lactate Dehydrogenase Troponin T C-Reactive Protein NT-Pro-B Natriuret Pep Total Protein Albumin LDL Cholesterol Direct Vitamin B12 Fluid Glucose Fluid Total Protein Vancomycin Trough Crossmatch 11/15/21 11/15/21 11/15/21 05:20 05:50 05:50 WBC 19.9 H RBC 3.50 L Hgb 8.2 L Hct 27.9 L MCV MCH 23 L MCHC 29 L RDW 24.9 H Plt Count Seg Neuts % (Manual) Lymphocytes % (Manual) Seg Neutrophils # Man Lymphocytes # (Manual) Monocytes # (Manual) PT INR D-Dimer ABG pH ABG pO2 ABG HCO3 ABG O2 Saturation ABG Base Excess ABG Hemoglobin Oxyhemoglobin Sodium 149 H Potassium Chloride 112.0 H Carbon Dioxide BUN 48 H Creatinine Glucose 152 H POC Glucose 137 H Lactic Acid Calcium 7.9 L Phosphorus Magnesium AST ALT Alkaline Phosphatase Lactate Dehydrogenase Troponin T C-Reactive Protein NT-Pro-B Natriuret Pep Total Protein Albumin LDL Cholesterol Direct Vitamin B12 Fluid Glucose Fluid Total Protein Vancomycin Trough Crossmatch 11/15/21 11/15/21 11/15/21 12:12 17:07 23:24 WBC RBC Hgb Hct MCV MCH MCHC RDW Plt Count Seg Neuts % (Manual) Lymphocytes % (Manual) Seg Neutrophils # Man Lymphocytes # (Manual) Monocytes # (Manual) PT INR D-Dimer ABG pH ABG pO2 ABG HCO3 ABG O2 Saturation ABG Base Excess ABG Hemoglobin Oxyhemoglobin Sodium Potassium Chloride Carbon Dioxide BUN Creatinine Glucose POC Glucose 114 H 135 H 123 H Lactic Acid Calcium Phosphorus Magnesium AST ALT Alkaline Phosphatase Lactate Dehydrogenase Troponin T C-Reactive Protein NT-Pro-B Natriuret Pep Total Protein Albumin LDL Cholesterol Direct Vitamin B12 Fluid Glucose Fluid Total Protein Vancomycin Trough Crossmatch 11/16/21 11/16/21 11/16/21 05:21 10:00 10:00 WBC 21.7 H RBC 2.57 L Hgb 6.0 L Hct 20.2 L D MCV MCH 24 L MCHC RDW 26.3 H Plt Count Seg Neuts % (Manual) Lymphocytes % (Manual) Seg Neutrophils # Man Lymphocytes # (Manual) Monocytes # (Manual) PT INR D-Dimer ABG pH ABG pO2 ABG HCO3 ABG O2 Saturation ABG Base Excess ABG Hemoglobin Oxyhemoglobin Sodium 153 H Potassium Chloride 114.9 H Carbon Dioxide BUN 74 H Creatinine Glucose 155 H POC Glucose 127 H Lactic Acid Calcium 8.1 L Phosphorus Magnesium AST ALT Alkaline Phosphatase Lactate Dehydrogenase Troponin T C-Reactive Protein NT-Pro-B Natriuret Pep Total Protein Albumin LDL Cholesterol Direct Vitamin B12 Fluid Glucose Fluid Total Protein Vancomycin Trough Crossmatch 11/16/21 11/16/21 11/16/21 11:34 14:00 15:25 WBC 17.2 H RBC 2.08 L Hgb 4.7 L* Hct 16.2 L* MCV 78 L MCH 23 L MCHC 29 L RDW 26.0 H Plt Count Seg Neuts % (Manual) 87.0 H Lymphocytes % (Manual) 8.0 L Seg Neutrophils # Man 15.0 H Lymphocytes # (Manual) Monocytes # (Manual) 0.9 H PT INR D-Dimer ABG pH ABG pO2 ABG HCO3 ABG O2 Saturation ABG Base Excess ABG Hemoglobin Oxyhemoglobin Sodium Potassium Chloride Carbon Dioxide BUN Creatinine Glucose POC Glucose 131 H Lactic Acid Calcium Phosphorus Magnesium AST ALT Alkaline Phosphatase Lactate Dehydrogenase Troponin T C-Reactive Protein NT-Pro-B Natriuret Pep Total Protein Albumin LDL Cholesterol Direct Vitamin B12 Fluid Glucose Fluid Total Protein Vancomycin Trough Crossmatch See Detail 11/16/21 11/16/21 11/16/21 15:25 17:21 22:43 WBC RBC Hgb 8.6 L D Hct 27.7 L D MCV MCH MCHC RDW Plt Count Seg Neuts % (Manual) Lymphocytes % (Manual) Seg Neutrophils # Man Lymphocytes # (Manual) Monocytes # (Manual) PT INR D-Dimer ABG pH ABG pO2 ABG HCO3 ABG O2 Saturation ABG Base Excess ABG Hemoglobin Oxyhemoglobin Sodium 148 H Potassium Chloride 113.2 H Carbon Dioxide BUN 84 H Creatinine Glucose 164 H POC Glucose 124 H Lactic Acid Calcium 7.6 L Phosphorus Magnesium AST ALT Alkaline Phosphatase Lactate Dehydrogenase Troponin T C-Reactive Protein NT-Pro-B Natriuret Pep Total Protein Albumin LDL Cholesterol Direct Vitamin B12 Fluid Glucose Fluid Total Protein Vancomycin Trough Crossmatch 11/16/21 11/17/21 11/17/21 23:07 05:33 05:56 WBC 25.1 H RBC 3.47 L Hgb 8.7 L Hct 28.5 L MCV MCH 25 L MCHC RDW 22.3 H Plt Count Seg Neuts % (Manual) Lymphocytes % (Manual) Seg Neutrophils # Man Lymphocytes # (Manual) Monocytes # (Manual) PT INR D-Dimer ABG pH ABG pO2 ABG HCO3 ABG O2 Saturation ABG Base Excess ABG Hemoglobin Oxyhemoglobin Sodium Potassium Chloride Carbon Dioxide BUN Creatinine Glucose POC Glucose 128 H 133 H Lactic Acid Calcium Phosphorus Magnesium AST ALT Alkaline Phosphatase Lactate Dehydrogenase Troponin T C-Reactive Protein NT-Pro-B Natriuret Pep Total Protein Albumin LDL Cholesterol Direct Vitamin B12 Fluid Glucose Fluid Total Protein Vancomycin Trough Crossmatch 11/17/21 11/17/21 11/17/21 05:56 11:00 11:55 WBC RBC Hgb 8.3 L Hct 26.9 L MCV MCH MCHC RDW Plt Count Seg Neuts % (Manual) Lymphocytes % (Manual) Seg Neutrophils # Man Lymphocytes # (Manual) Monocytes # (Manual) PT INR D-Dimer ABG pH ABG pO2 ABG HCO3 ABG O2 Saturation ABG Base Excess ABG Hemoglobin Oxyhemoglobin Sodium 151 H Potassium Chloride 113.6 H Carbon Dioxide BUN 85 H Creatinine Glucose 132 H POC Glucose 121 H Lactic Acid Calcium 7.8 L Phosphorus Magnesium AST ALT Alkaline Phosphatase Lactate Dehydrogenase Troponin T C-Reactive Protein NT-Pro-B Natriuret Pep Total Protein 5.1 L Albumin 2.2 L LDL Cholesterol Direct Vitamin B12 Fluid Glucose Fluid Total Protein Vancomycin Trough Crossmatch 11/17/21 11/17/21 11/18/21 18:04 18:55 00:26 WBC RBC Hgb 7.5 L 7.1 L Hct 24.8 L 23.6 L MCV MCH MCHC RDW Plt Count Seg Neuts % (Manual) Lymphocytes % (Manual) Seg Neutrophils # Man Lymphocytes # (Manual) Monocytes # (Manual) PT INR D-Dimer ABG pH ABG pO2 ABG HCO3 ABG O2 Saturation ABG Base Excess ABG Hemoglobin Oxyhemoglobin Sodium Potassium Chloride Carbon Dioxide BUN Creatinine Glucose POC Glucose 144 H Lactic Acid Calcium Phosphorus Magnesium AST ALT Alkaline Phosphatase Lactate Dehydrogenase Troponin T C-Reactive Protein NT-Pro-B Natriuret Pep Total Protein Albumin LDL Cholesterol Direct Vitamin B12 Fluid Glucose Fluid Total Protein Vancomycin Trough Crossmatch 11/18/21 11/18/21 11/18/21 00:43 05:10 05:10 WBC 12.5 H RBC 2.39 L Hgb 6.1 L Hct 20.2 L MCV MCH 25 L MCHC RDW 23.2 H Plt Count Seg Neuts % (Manual) Lymphocytes % (Manual) Seg Neutrophils # Man Lymphocytes # (Manual) Monocytes # (Manual) PT INR D-Dimer ABG pH ABG pO2 ABG HCO3 ABG O2 Saturation ABG Base Excess ABG Hemoglobin Oxyhemoglobin Sodium 131 L D Potassium 2.9 L* D Chloride 97.8 L Carbon Dioxide BUN 58 H Creatinine Glucose 665 H* POC Glucose 139 H Lactic Acid Calcium 7.0 L Phosphorus 2.20 L D Magnesium 1.50 L AST ALT Alkaline Phosphatase Lactate Dehydrogenase Troponin T C-Reactive Protein NT-Pro-B Natriuret Pep Total Protein Albumin LDL Cholesterol Direct Vitamin B12 Fluid Glucose Fluid Total Protein Vancomycin Trough Crossmatch 11/18/21 11/18/21 11/18/21 05:23 07:10 10:45 WBC RBC Hgb Hct MCV MCH MCHC RDW Plt Count Seg Neuts % (Manual) Lymphocytes % (Manual) Seg Neutrophils # Man Lymphocytes # (Manual) Monocytes # (Manual) PT INR D-Dimer ABG pH ABG pO2 ABG HCO3 ABG O2 Saturation ABG Base Excess ABG Hemoglobin Oxyhemoglobin Sodium 148 H D Potassium 3.1 L Chloride 111.9 H Carbon Dioxide BUN 63 H Creatinine Glucose 141 H POC Glucose 124 H Lactic Acid Calcium 8.1 L D Phosphorus Magnesium AST ALT Alkaline Phosphatase Lactate Dehydrogenase Troponin T C-Reactive Protein NT-Pro-B Natriuret Pep Total Protein Albumin LDL Cholesterol Direct Vitamin B12 Fluid Glucose Fluid Total Protein Vancomycin Trough Crossmatch See Detail 11/18/21 11/19/21 11/19/21 11:57 00:19 04:55 WBC RBC 3.35 L Hgb 9.0 L 8.9 L Hct 28.3 L D 28.1 L MCV MCH 27 L MCHC RDW 20.3 H Plt Count Seg Neuts % (Manual) Lymphocytes % (Manual) Seg Neutrophils # Man Lymphocytes # (Manual) Monocytes # (Manual) PT INR D-Dimer ABG pH ABG pO2 ABG HCO3 ABG O2 Saturation ABG Base Excess ABG Hemoglobin Oxyhemoglobin Sodium Potassium Chloride Carbon Dioxide BUN Creatinine Glucose POC Glucose 119 H Lactic Acid Calcium Phosphorus Magnesium AST ALT Alkaline Phosphatase Lactate Dehydrogenase Troponin T C-Reactive Protein NT-Pro-B Natriuret Pep Total Protein Albumin LDL Cholesterol Direct Vitamin B12 Fluid Glucose Fluid Total Protein Vancomycin Trough Crossmatch 11/19/21 11/19/21 11/20/21 04:55 05:42 00:55 WBC RBC Hgb 9.0 L Hct 28.6 L MCV MCH MCHC RDW Plt Count Seg Neuts % (Manual) Lymphocytes % (Manual) Seg Neutrophils # Man Lymphocytes # (Manual) Monocytes # (Manual) PT INR D-Dimer ABG pH ABG pO2 ABG HCO3 ABG O2 Saturation ABG Base Excess ABG Hemoglobin Oxyhemoglobin Sodium Potassium 3.5 L Chloride 108.6 H Carbon Dioxide BUN 47 H Creatinine Glucose 207 H POC Glucose 63 L Lactic Acid Calcium 7.1 L Phosphorus Magnesium AST ALT Alkaline Phosphatase Lactate Dehydrogenase Troponin T C-Reactive Protein NT-Pro-B Natriuret Pep Total Protein Albumin LDL Cholesterol Direct Vitamin B12 Fluid Glucose Fluid Total Protein Vancomycin Trough Crossmatch 11/20/21 11/20/21 11/20/21 05:40 05:40 Unknown WBC RBC 3.40 L Hgb 9.1 L Hct 28.8 L MCV MCH 27 L MCHC RDW 20.7 H Plt Count Seg Neuts % (Manual) Lymphocytes % (Manual) Seg Neutrophils # Man Lymphocytes # (Manual) Monocytes # (Manual) PT INR D-Dimer ABG pH ABG pO2 ABG HCO3 ABG O2 Saturation ABG Base Excess -2.7 L ABG Hemoglobin 9.5 L Oxyhemoglobin 94.3 L Sodium Potassium 3.5 L Chloride 108.9 H Carbon Dioxide BUN 37 H Creatinine Glucose 117 H POC Glucose Lactic Acid Calcium 7.5 L Phosphorus Magnesium AST ALT Alkaline Phosphatase Lactate Dehydrogenase Troponin T C-Reactive Protein NT-Pro-B Natriuret Pep Total Protein Albumin LDL Cholesterol Direct Vitamin B12 Fluid Glucose Fluid Total Protein Vancomycin Trough Crossmatch 11/21/21 11/21/21 11/21/21 04:30 04:30 16:00 WBC RBC 3.25 L Hgb 8.6 L Hct 28.1 L MCV MCH 26 L MCHC RDW 20.7 H Plt Count Seg Neuts % (Manual) Lymphocytes % (Manual) Seg Neutrophils # Man Lymphocytes # (Manual) Monocytes # (Manual) PT INR D-Dimer ABG pH ABG pO2 114.2 H ABG HCO3 ABG O2 Saturation ABG Base Excess ABG Hemoglobin 9.1 L Oxyhemoglobin Sodium 134 L Potassium Chloride Carbon Dioxide 20 L BUN 34 H Creatinine Glucose POC Glucose Lactic Acid Calcium 7.1 L Phosphorus Magnesium AST ALT Alkaline Phosphatase Lactate Dehydrogenase Troponin T C-Reactive Protein NT-Pro-B Natriuret Pep Total Protein Albumin LDL Cholesterol Direct Vitamin B12 Fluid Glucose Fluid Total Protein Vancomycin Trough Crossmatch 11/22/21 11/22/21 11/22/21 07:07 07:07 23:54 WBC RBC 3.30 L Hgb 9.0 L Hct 28.5 L MCV MCH 27 L MCHC RDW 21.0 H Plt Count Seg Neuts % (Manual) Lymphocytes % (Manual) Seg Neutrophils # Man Lymphocytes # (Manual) Monocytes # (Manual) PT INR D-Dimer ABG pH ABG pO2 ABG HCO3 ABG O2 Saturation ABG Base Excess ABG Hemoglobin Oxyhemoglobin Sodium Potassium Chloride Carbon Dioxide BUN 32 H Creatinine Glucose 106 H POC Glucose 110 H Lactic Acid Calcium 7.5 L Phosphorus Magnesium AST ALT Alkaline Phosphatase Lactate Dehydrogenase Troponin T C-Reactive Protein NT-Pro-B Natriuret Pep Total Protein Albumin LDL Cholesterol Direct Vitamin B12 Fluid Glucose Fluid Total Protein Vancomycin Trough Crossmatch 11/23/21 11/23/21 11/23/21 04:38 04:38 06:01 WBC RBC 3.23 L Hgb 8.8 L Hct 28.0 L MCV MCH 27 L MCHC RDW 21.3 H Plt Count Seg Neuts % (Manual) Lymphocytes % (Manual) Seg Neutrophils # Man Lymphocytes # (Manual) Monocytes # (Manual) PT INR D-Dimer ABG pH ABG pO2 ABG HCO3 ABG O2 Saturation ABG Base Excess ABG Hemoglobin Oxyhemoglobin Sodium 136 L Potassium Chloride Carbon Dioxide 20 L BUN 32 H Creatinine Glucose 109 H POC Glucose 115 H Lactic Acid Calcium 7.7 L Phosphorus Magnesium AST ALT Alkaline Phosphatase Lactate Dehydrogenase Troponin T C-Reactive Protein NT-Pro-B Natriuret Pep Total Protein Albumin LDL Cholesterol Direct Vitamin B12 Fluid Glucose Fluid Total Protein Vancomycin Trough Crossmatch 11/23/21 11/24/21 11/24/21 11:40 00:03 04:13 WBC RBC 3.18 L Hgb 8.5 L Hct 27.5 L MCV MCH 27 L MCHC RDW 21.6 H Plt Count Seg Neuts % (Manual) Lymphocytes % (Manual) Seg Neutrophils # Man Lymphocytes # (Manual) Monocytes # (Manual) PT INR D-Dimer ABG pH ABG pO2 ABG HCO3 ABG O2 Saturation ABG Base Excess ABG Hemoglobin Oxyhemoglobin Sodium Potassium Chloride Carbon Dioxide BUN Creatinine Glucose POC Glucose 117 H 111 H Lactic Acid Calcium Phosphorus Magnesium AST ALT Alkaline Phosphatase Lactate Dehydrogenase Troponin T C-Reactive Protein NT-Pro-B Natriuret Pep Total Protein Albumin LDL Cholesterol Direct Vitamin B12 Fluid Glucose Fluid Total Protein Vancomycin Trough Crossmatch 11/24/21 11/24/21 11/24/21 04:13 05:30 11:10 WBC RBC Hgb Hct MCV MCH MCHC RDW Plt Count Seg Neuts % (Manual) Lymphocytes % (Manual) Seg Neutrophils # Man Lymphocytes # (Manual) Monocytes # (Manual) PT INR D-Dimer ABG pH ABG pO2 ABG HCO3 ABG O2 Saturation ABG Base Excess ABG Hemoglobin Oxyhemoglobin Sodium Potassium Chloride Carbon Dioxide BUN 31 H Creatinine Glucose 101 H POC Glucose 115 H 107 H Lactic Acid Calcium 7.7 L Phosphorus Magnesium AST ALT Alkaline Phosphatase Lactate Dehydrogenase Troponin T C-Reactive Protein NT-Pro-B Natriuret Pep Total Protein Albumin LDL Cholesterol Direct Vitamin B12 Fluid Glucose Fluid Total Protein Vancomycin Trough Crossmatch 11/24/21 11/24/21 11/25/21 16:34 17:57 05:12 WBC RBC 3.11 L Hgb 8.2 L Hct 26.6 L MCV MCH 26 L MCHC RDW 21.3 H Plt Count Seg Neuts % (Manual) Lymphocytes % (Manual) Seg Neutrophils # Man Lymphocytes # (Manual) Monocytes # (Manual) PT INR D-Dimer ABG pH ABG pO2 ABG HCO3 ABG O2 Saturation ABG Base Excess ABG Hemoglobin Oxyhemoglobin Sodium Potassium Chloride Carbon Dioxide BUN Creatinine Glucose POC Glucose 115 H 110 H Lactic Acid Calcium Phosphorus Magnesium AST ALT Alkaline Phosphatase Lactate Dehydrogenase Troponin T C-Reactive Protein NT-Pro-B Natriuret Pep Total Protein Albumin LDL Cholesterol Direct Vitamin B12 Fluid Glucose Fluid Total Protein Vancomycin Trough Crossmatch 11/25/21 11/25/21 11/26/21 05:12 11:20 05:00 WBC RBC 3.30 L Hgb 8.8 L Hct 28.2 L MCV MCH 27 L MCHC RDW 20.7 H Plt Count Seg Neuts % (Manual) Lymphocytes % (Manual) Seg Neutrophils # Man Lymphocytes # (Manual) Monocytes # (Manual) PT INR D-Dimer ABG pH ABG pO2 ABG HCO3 ABG O2 Saturation ABG Base Excess ABG Hemoglobin Oxyhemoglobin Sodium Potassium Chloride Carbon Dioxide BUN 32 H Creatinine Glucose 118 H POC Glucose 118 H Lactic Acid Calcium 8.2 L Phosphorus Magnesium AST ALT Alkaline Phosphatase Lactate Dehydrogenase Troponin T C-Reactive Protein NT-Pro-B Natriuret Pep Total Protein Albumin LDL Cholesterol Direct Vitamin B12 Fluid Glucose Fluid Total Protein Vancomycin Trough Crossmatch 11/26/21 11/26/21 11/26/21 05:00 05:00 05:44 WBC RBC Hgb Hct MCV MCH MCHC RDW Plt Count Seg Neuts % (Manual) Lymphocytes % (Manual) Seg Neutrophils # Man Lymphocytes # (Manual) Monocytes # (Manual) PT 16.9 H INR 1.24 H D-Dimer ABG pH ABG pO2 ABG HCO3 ABG O2 Saturation ABG Base Excess ABG Hemoglobin Oxyhemoglobin Sodium Potassium Chloride Carbon Dioxide BUN 31 H Creatinine Glucose 104 H POC Glucose 110 H Lactic Acid Calcium 7.9 L Phosphorus Magnesium AST ALT Alkaline Phosphatase Lactate Dehydrogenase Troponin T C-Reactive Protein NT-Pro-B Natriuret Pep Total Protein Albumin LDL Cholesterol Direct Vitamin B12 Fluid Glucose Fluid Total Protein Vancomycin Trough Crossmatch 11/26/21 11/27/21 11/27/21 23:55 07:40 07:40 WBC RBC 3.18 L Hgb 8.5 L Hct 27.0 L MCV MCH 27 L MCHC RDW 21.2 H Plt Count Seg Neuts % (Manual) Lymphocytes % (Manual) Seg Neutrophils # Man Lymphocytes # (Manual) Monocytes # (Manual) PT INR D-Dimer ABG pH ABG pO2 ABG HCO3 ABG O2 Saturation ABG Base Excess ABG Hemoglobin Oxyhemoglobin Sodium Potassium Chloride Carbon Dioxide BUN 27 H Creatinine Glucose 112 H POC Glucose 63 L Lactic Acid Calcium 7.6 L Phosphorus Magnesium AST ALT Alkaline Phosphatase Lactate Dehydrogenase Troponin T C-Reactive Protein NT-Pro-B Natriuret Pep Total Protein Albumin LDL Cholesterol Direct Vitamin B12 Fluid Glucose Fluid Total Protein Vancomycin Trough Crossmatch 11/27/21 11/27/21 11/27/21 12:04 13:40 13:40 WBC RBC 3.31 L Hgb 8.7 L Hct 28.0 L MCV MCH 26 L MCHC RDW 20.7 H Plt Count Seg Neuts % (Manual) Lymphocytes % (Manual) Seg Neutrophils # Man Lymphocytes # (Manual) Monocytes # (Manual) PT INR D-Dimer ABG pH ABG pO2 ABG HCO3 ABG O2 Saturation ABG Base Excess ABG Hemoglobin Oxyhemoglobin Sodium 136 L Potassium Chloride Carbon Dioxide BUN 25 H Creatinine Glucose 127 H POC Glucose 109 H Lactic Acid Calcium 7.6 L Phosphorus Magnesium 1.40 L AST ALT Alkaline Phosphatase Lactate Dehydrogenase Troponin T C-Reactive Protein NT-Pro-B Natriuret Pep Total Protein Albumin LDL Cholesterol Direct Vitamin B12 Fluid Glucose Fluid Total Protein Vancomycin Trough Crossmatch 11/27/21 11/27/21 11/28/21 17:44 23:33 12:20 WBC RBC Hgb Hct MCV MCH MCHC RDW Plt Count Seg Neuts % (Manual) Lymphocytes % (Manual) Seg Neutrophils # Man Lymphocytes # (Manual) Monocytes # (Manual) PT INR D-Dimer ABG pH ABG pO2 ABG HCO3 ABG O2 Saturation ABG Base Excess ABG Hemoglobin Oxyhemoglobin Sodium Potassium Chloride Carbon Dioxide BUN Creatinine Glucose POC Glucose 107 H 108 H 114 H Lactic Acid Calcium Phosphorus Magnesium AST ALT Alkaline Phosphatase Lactate Dehydrogenase Troponin T C-Reactive Protein NT-Pro-B Natriuret Pep Total Protein Albumin LDL Cholesterol Direct Vitamin B12 Fluid Glucose Fluid Total Protein Vancomycin Trough Crossmatch 11/29/21 11/29/21 11/29/21 00:09 03:20 03:20 WBC RBC 3.05 L Hgb 8.2 L Hct 25.8 L MCV MCH 27 L MCHC RDW 20.9 H Plt Count Seg Neuts % (Manual) Lymphocytes % (Manual) Seg Neutrophils # Man Lymphocytes # (Manual) Monocytes # (Manual) PT INR D-Dimer ABG pH ABG pO2 ABG HCO3 ABG O2 Saturation ABG Base Excess ABG Hemoglobin Oxyhemoglobin Sodium 133 L Potassium Chloride Carbon Dioxide BUN 24 H Creatinine Glucose 137 H POC Glucose 134 H Lactic Acid Calcium 7.4 L Phosphorus Magnesium AST ALT Alkaline Phosphatase Lactate Dehydrogenase Troponin T C-Reactive Protein NT-Pro-B Natriuret Pep Total Protein Albumin LDL Cholesterol Direct Vitamin B12 Fluid Glucose Fluid Total Protein Vancomycin Trough Crossmatch 11/29/21 11/29/21 11/29/21 05:38 11:39 17:11 WBC RBC Hgb Hct MCV MCH MCHC RDW Plt Count Seg Neuts % (Manual) Lymphocytes % (Manual) Seg Neutrophils # Man Lymphocytes # (Manual) Monocytes # (Manual) PT INR D-Dimer ABG pH ABG pO2 ABG HCO3 ABG O2 Saturation ABG Base Excess ABG Hemoglobin Oxyhemoglobin Sodium Potassium Chloride Carbon Dioxide BUN Creatinine Glucose POC Glucose 117 H 143 H 124 H Lactic Acid Calcium Phosphorus Magnesium AST ALT Alkaline Phosphatase Lactate Dehydrogenase Troponin T C-Reactive Protein NT-Pro-B Natriuret Pep Total Protein Albumin LDL Cholesterol Direct Vitamin B12 Fluid Glucose Fluid Total Protein Vancomycin Trough Crossmatch 11/29/21 11/30/21 11/30/21 20:15 05:40 05:40 WBC 12.6 H RBC 3.41 L Hgb 9.1 L Hct 28.9 L MCV MCH 27 L MCHC RDW 20.4 H Plt Count Seg Neuts % (Manual) Lymphocytes % (Manual) Seg Neutrophils # Man Lymphocytes # (Manual) Monocytes # (Manual) PT INR D-Dimer ABG pH ABG pO2 ABG HCO3 ABG O2 Saturation ABG Base Excess ABG Hemoglobin Oxyhemoglobin Sodium Potassium Chloride Carbon Dioxide BUN 24 H Creatinine Glucose 131 H POC Glucose Lactic Acid Calcium 7.6 L Phosphorus Magnesium AST ALT Alkaline Phosphatase Lactate Dehydrogenase Troponin T 0.045 H C-Reactive Protein NT-Pro-B Natriuret Pep Total Protein Albumin LDL Cholesterol Direct 25 L Vitamin B12 Fluid Glucose Fluid Total Protein Vancomycin Trough Crossmatch 11/30/21 11/30/21 12/01/21 11:29 16:51 05:00 WBC RBC 2.97 L Hgb 8.0 L Hct 25.0 L MCV MCH 27 L MCHC RDW 20.8 H Plt Count Seg Neuts % (Manual) Lymphocytes % (Manual) Seg Neutrophils # Man Lymphocytes # (Manual) Monocytes # (Manual) PT INR D-Dimer ABG pH ABG pO2 ABG HCO3 ABG O2 Saturation ABG Base Excess ABG Hemoglobin Oxyhemoglobin Sodium Potassium Chloride Carbon Dioxide BUN Creatinine Glucose POC Glucose 123 H 114 H Lactic Acid Calcium Phosphorus Magnesium AST ALT Alkaline Phosphatase Lactate Dehydrogenase Troponin T C-Reactive Protein NT-Pro-B Natriuret Pep Total Protein Albumin LDL Cholesterol Direct Vitamin B12 Fluid Glucose Fluid Total Protein Vancomycin Trough Crossmatch 12/01/21 12/01/21 12/01/21 05:00 05:25 11:54 WBC RBC Hgb Hct MCV MCH MCHC RDW Plt Count Seg Neuts % (Manual) Lymphocytes % (Manual) Seg Neutrophils # Man Lymphocytes # (Manual) Monocytes # (Manual) PT INR D-Dimer ABG pH ABG pO2 ABG HCO3 ABG O2 Saturation ABG Base Excess ABG Hemoglobin Oxyhemoglobin Sodium 136 L Potassium Chloride Carbon Dioxide BUN 24 H Creatinine Glucose 117 H POC Glucose 108 H 107 H Lactic Acid Calcium 7.5 L Phosphorus Magnesium 1.60 L AST ALT Alkaline Phosphatase Lactate Dehydrogenase Troponin T C-Reactive Protein NT-Pro-B Natriuret Pep Total Protein Albumin LDL Cholesterol Direct Vitamin B12 Fluid Glucose Fluid Total Protein Vancomycin Trough Crossmatch 12/01/21 12/02/21 12/02/21 17:40 00:07 04:20 WBC RBC 2.92 L Hgb 7.7 L Hct 24.3 L MCV MCH 26 L MCHC RDW 20.5 H Plt Count Seg Neuts % (Manual) Lymphocytes % (Manual) Seg Neutrophils # Man Lymphocytes # (Manual) Monocytes # (Manual) PT INR D-Dimer ABG pH ABG pO2 ABG HCO3 ABG O2 Saturation ABG Base Excess ABG Hemoglobin Oxyhemoglobin Sodium Potassium Chloride Carbon Dioxide BUN Creatinine Glucose POC Glucose 123 H 110 H Lactic Acid Calcium Phosphorus Magnesium AST ALT Alkaline Phosphatase Lactate Dehydrogenase Troponin T C-Reactive Protein NT-Pro-B Natriuret Pep Total Protein Albumin LDL Cholesterol Direct Vitamin B12 Fluid Glucose Fluid Total Protein Vancomycin Trough Crossmatch 12/02/21 12/02/21 12/02/21 04:20 11:17 18:20 WBC RBC Hgb Hct MCV MCH MCHC RDW Plt Count Seg Neuts % (Manual) Lymphocytes % (Manual) Seg Neutrophils # Man Lymphocytes # (Manual) Monocytes # (Manual) PT INR D-Dimer ABG pH ABG pO2 ABG HCO3 ABG O2 Saturation ABG Base Excess ABG Hemoglobin Oxyhemoglobin Sodium 135 L Potassium Chloride Carbon Dioxide BUN 26 H Creatinine Glucose 121 H POC Glucose 117 H 113 H Lactic Acid Calcium 7.4 L Phosphorus Magnesium AST ALT Alkaline Phosphatase Lactate Dehydrogenase Troponin T C-Reactive Protein NT-Pro-B Natriuret Pep Total Protein Albumin LDL Cholesterol Direct Vitamin B12 Fluid Glucose Fluid Total Protein Vancomycin Trough Crossmatch 12/03/21 12/03/21 12/03/21 00:12 04:00 04:00 WBC RBC 2.99 L Hgb 7.8 L Hct 24.6 L MCV MCH 26 L MCHC RDW 20.2 H Plt Count Seg Neuts % (Manual) Lymphocytes % (Manual) Seg Neutrophils # Man Lymphocytes # (Manual) Monocytes # (Manual) PT INR D-Dimer ABG pH ABG pO2 ABG HCO3 ABG O2 Saturation ABG Base Excess ABG Hemoglobin Oxyhemoglobin Sodium 136 L Potassium Chloride Carbon Dioxide BUN 27 H Creatinine Glucose 133 H POC Glucose 121 H Lactic Acid Calcium 7.5 L Phosphorus Magnesium AST ALT Alkaline Phosphatase Lactate Dehydrogenase Troponin T C-Reactive Protein NT-Pro-B Natriuret Pep Total Protein Albumin LDL Cholesterol Direct Vitamin B12 Fluid Glucose Fluid Total Protein Vancomycin Trough Crossmatch 12/03/21 12/03/21 12/03/21 06:30 11:13 16:00 WBC RBC Hgb Hct MCV MCH MCHC RDW Plt Count Seg Neuts % (Manual) Lymphocytes % (Manual) Seg Neutrophils # Man Lymphocytes # (Manual) Monocytes # (Manual) PT INR D-Dimer ABG pH ABG pO2 ABG HCO3 ABG O2 Saturation ABG Base Excess ABG Hemoglobin Oxyhemoglobin Sodium Potassium Chloride Carbon Dioxide BUN Creatinine Glucose POC Glucose 129 H 125 H 125 H Lactic Acid Calcium Phosphorus Magnesium AST ALT Alkaline Phosphatase Lactate Dehydrogenase Troponin T C-Reactive Protein NT-Pro-B Natriuret Pep Total Protein Albumin LDL Cholesterol Direct Vitamin B12 Fluid Glucose Fluid Total Protein Vancomycin Trough Crossmatch 12/03/21 12/04/21 12/04/21 23:32 04:00 05:36 WBC RBC Hgb Hct MCV MCH MCHC RDW Plt Count Seg Neuts % (Manual) Lymphocytes % (Manual) Seg Neutrophils # Man Lymphocytes # (Manual) Monocytes # (Manual) PT INR D-Dimer ABG pH ABG pO2 ABG HCO3 ABG O2 Saturation ABG Base Excess ABG Hemoglobin Oxyhemoglobin Sodium Potassium 3.5 L Chloride Carbon Dioxide BUN 26 H Creatinine 0.5 L Glucose 151 H POC Glucose 133 H 142 H Lactic Acid Calcium 8.3 L Phosphorus Magnesium AST ALT Alkaline Phosphatase Lactate Dehydrogenase Troponin T C-Reactive Protein NT-Pro-B Natriuret Pep Total Protein Albumin LDL Cholesterol Direct Vitamin B12 Fluid Glucose Fluid Total Protein Vancomycin Trough Crossmatch 12/04/21 12/04/21 12/05/21 11:24 15:58 04:36 WBC RBC Hgb Hct MCV MCH MCHC RDW Plt Count Seg Neuts % (Manual) Lymphocytes % (Manual) Seg Neutrophils # Man Lymphocytes # (Manual) Monocytes # (Manual) PT INR D-Dimer ABG pH ABG pO2 ABG HCO3 ABG O2 Saturation ABG Base Excess ABG Hemoglobin Oxyhemoglobin Sodium Potassium Chloride Carbon Dioxide BUN 21 H Creatinine 0.5 L Glucose 119 H POC Glucose 130 H 111 H Lactic Acid Calcium 8.3 L Phosphorus Magnesium AST ALT Alkaline Phosphatase Lactate Dehydrogenase Troponin T C-Reactive Protein NT-Pro-B Natriuret Pep Total Protein Albumin LDL Cholesterol Direct Vitamin B12 Fluid Glucose Fluid Total Protein Vancomycin Trough Crossmatch 12/05/21 12/05/21 12/05/21 05:15 10:40 11:12 WBC RBC 2.98 L Hgb 8.1 L Hct 24.6 L MCV MCH 27 L MCHC RDW 20.8 H Plt Count Seg Neuts % (Manual) Lymphocytes % (Manual) Seg Neutrophils # Man Lymphocytes # (Manual) Monocytes # (Manual) PT INR D-Dimer ABG pH ABG pO2 ABG HCO3 ABG O2 Saturation ABG Base Excess ABG Hemoglobin Oxyhemoglobin Sodium Potassium Chloride Carbon Dioxide BUN Creatinine Glucose POC Glucose 107 H 110 H Lactic Acid Calcium Phosphorus Magnesium AST ALT Alkaline Phosphatase Lactate Dehydrogenase Troponin T C-Reactive Protein NT-Pro-B Natriuret Pep Total Protein Albumin LDL Cholesterol Direct Vitamin B12 Fluid Glucose Fluid Total Protein Vancomycin Trough Crossmatch 12/05/21 12/06/21 12/06/21 23:39 04:25 04:25 WBC RBC 2.95 L Hgb 7.9 L Hct 24.7 L MCV MCH 27 L MCHC RDW 20.9 H Plt Count Seg Neuts % (Manual) Lymphocytes % (Manual) Seg Neutrophils # Man Lymphocytes # (Manual) Monocytes # (Manual) PT INR D-Dimer ABG pH ABG pO2 ABG HCO3 ABG O2 Saturation ABG Base Excess ABG Hemoglobin Oxyhemoglobin Sodium Potassium Chloride Carbon Dioxide BUN 22 H Creatinine 0.5 L Glucose 136 H POC Glucose 118 H Lactic Acid Calcium 8.2 L Phosphorus Magnesium AST ALT Alkaline Phosphatase Lactate Dehydrogenase Troponin T C-Reactive Protein NT-Pro-B Natriuret Pep Total Protein Albumin LDL Cholesterol Direct Vitamin B12 Fluid Glucose Fluid Total Protein Vancomycin Trough Crossmatch 12/06/21 12/06/21 12/07/21 05:28 11:27 04:00 WBC RBC Hgb 7.2 L Hct 21.8 L MCV MCH MCHC RDW Plt Count Seg Neuts % (Manual) Lymphocytes % (Manual) Seg Neutrophils # Man Lymphocytes # (Manual) Monocytes # (Manual) PT INR D-Dimer ABG pH ABG pO2 ABG HCO3 ABG O2 Saturation ABG Base Excess ABG Hemoglobin Oxyhemoglobin Sodium Potassium Chloride Carbon Dioxide BUN Creatinine Glucose POC Glucose 142 H 126 H Lactic Acid Calcium Phosphorus Magnesium AST ALT Alkaline Phosphatase Lactate Dehydrogenase Troponin T C-Reactive Protein NT-Pro-B Natriuret Pep Total Protein Albumin LDL Cholesterol Direct Vitamin B12 Fluid Glucose Fluid Total Protein Vancomycin Trough Crossmatch 12/07/21 12/07/21 12/07/21 04:00 05:30 11:12 WBC RBC Hgb Hct MCV MCH MCHC RDW Plt Count Seg Neuts % (Manual) Lymphocytes % (Manual) Seg Neutrophils # Man Lymphocytes # (Manual) Monocytes # (Manual) PT INR D-Dimer ABG pH ABG pO2 ABG HCO3 ABG O2 Saturation ABG Base Excess ABG Hemoglobin Oxyhemoglobin Sodium Potassium Chloride Carbon Dioxide BUN 22 H Creatinine Glucose 119 H POC Glucose 121 H 124 H Lactic Acid Calcium 8.0 L Phosphorus Magnesium AST ALT Alkaline Phosphatase Lactate Dehydrogenase Troponin T C-Reactive Protein NT-Pro-B Natriuret Pep Total Protein Albumin LDL Cholesterol Direct Vitamin B12 Fluid Glucose Fluid Total Protein Vancomycin Trough Crossmatch 12/08/21 12/08/21 12/08/21 04:00 04:00 05:39 WBC RBC 2.81 L Hgb 7.7 L Hct 23.5 L MCV MCH MCHC RDW 21.2 H Plt Count Seg Neuts % (Manual) Lymphocytes % (Manual) Seg Neutrophils # Man Lymphocytes # (Manual) Monocytes # (Manual) PT INR D-Dimer ABG pH ABG pO2 ABG HCO3 ABG O2 Saturation ABG Base Excess ABG Hemoglobin Oxyhemoglobin Sodium 135 L Potassium Chloride Carbon Dioxide BUN 23 H Creatinine Glucose 109 H POC Glucose 112 H Lactic Acid Calcium Phosphorus Magnesium AST ALT Alkaline Phosphatase Lactate Dehydrogenase Troponin T C-Reactive Protein NT-Pro-B Natriuret Pep Total Protein Albumin LDL Cholesterol Direct Vitamin B12 Fluid Glucose Fluid Total Protein Vancomycin Trough Crossmatch 12/08/21 12/09/21 12/09/21 11:03 04:20 04:20 WBC RBC 2.67 L Hgb 7.6 L Hct 22.1 L MCV MCH MCHC RDW 20.8 H Plt Count Seg Neuts % (Manual) Lymphocytes % (Manual) Seg Neutrophils # Man Lymphocytes # (Manual) Monocytes # (Manual) PT INR D-Dimer ABG pH ABG pO2 ABG HCO3 ABG O2 Saturation ABG Base Excess ABG Hemoglobin Oxyhemoglobin Sodium 135 L Potassium Chloride 97.8 L Carbon Dioxide BUN 26 H Creatinine Glucose 119 H POC Glucose 108 H Lactic Acid Calcium 7.7 L Phosphorus Magnesium AST ALT Alkaline Phosphatase Lactate Dehydrogenase Troponin T C-Reactive Protein NT-Pro-B Natriuret Pep Total Protein Albumin LDL Cholesterol Direct Vitamin B12 Fluid Glucose Fluid Total Protein Vancomycin Trough Crossmatch 12/09/21 12/10/21 12/10/21 11:26 04:33 11:12 WBC RBC Hgb Hct MCV MCH MCHC RDW Plt Count Seg Neuts % (Manual) Lymphocytes % (Manual) Seg Neutrophils # Man Lymphocytes # (Manual) Monocytes # (Manual) PT INR D-Dimer ABG pH ABG pO2 ABG HCO3 ABG O2 Saturation ABG Base Excess ABG Hemoglobin Oxyhemoglobin Sodium 136 L Potassium Chloride Carbon Dioxide BUN 27 H Creatinine Glucose 117 H POC Glucose 110 H 117 H Lactic Acid Calcium 8.2 L Phosphorus Magnesium AST ALT Alkaline Phosphatase Lactate Dehydrogenase Troponin T C-Reactive Protein NT-Pro-B Natriuret Pep Total Protein Albumin LDL Cholesterol Direct Vitamin B12 Fluid Glucose Fluid Total Protein Vancomycin Trough Crossmatch 12/10/21 12/10/21 12/11/21 16:02 23:31 04:35 WBC RBC 2.57 L Hgb 7.0 L Hct 21.4 L MCV MCH 27 L MCHC RDW 21.1 H Plt Count Seg Neuts % (Manual) Lymphocytes % (Manual) Seg Neutrophils # Man Lymphocytes # (Manual) Monocytes # (Manual) PT INR D-Dimer ABG pH ABG pO2 ABG HCO3 ABG O2 Saturation ABG Base Excess ABG Hemoglobin Oxyhemoglobin Sodium Potassium Chloride Carbon Dioxide BUN Creatinine Glucose POC Glucose 137 H 111 H Lactic Acid Calcium Phosphorus Magnesium AST ALT Alkaline Phosphatase Lactate Dehydrogenase Troponin T C-Reactive Protein NT-Pro-B Natriuret Pep Total Protein Albumin LDL Cholesterol Direct Vitamin B12 Fluid Glucose Fluid Total Protein Vancomycin Trough Crossmatch 12/11/21 12/11/21 12/11/21 04:35 12:46 16:07 WBC RBC Hgb Hct MCV MCH MCHC RDW Plt Count Seg Neuts % (Manual) Lymphocytes % (Manual) Seg Neutrophils # Man Lymphocytes # (Manual) Monocytes # (Manual) PT INR D-Dimer ABG pH ABG pO2 ABG HCO3 ABG O2 Saturation ABG Base Excess ABG Hemoglobin Oxyhemoglobin Sodium 136 L Potassium Chloride Carbon Dioxide BUN 27 H Creatinine Glucose 112 H POC Glucose 115 H 111 H Lactic Acid Calcium 7.6 L Phosphorus Magnesium AST ALT Alkaline Phosphatase Lactate Dehydrogenase Troponin T C-Reactive Protein NT-Pro-B Natriuret Pep Total Protein Albumin LDL Cholesterol Direct Vitamin B12 Fluid Glucose Fluid Total Protein Vancomycin Trough Crossmatch 12/11/21 12/12/21 12/12/21 23:42 04:30 04:30 WBC RBC 2.60 L Hgb 7.1 L Hct 21.5 L MCV MCH 27 L MCHC RDW 20.3 H Plt Count Seg Neuts % (Manual) Lymphocytes % (Manual) Seg Neutrophils # Man Lymphocytes # (Manual) Monocytes # (Manual) PT INR D-Dimer ABG pH ABG pO2 ABG HCO3 ABG O2 Saturation ABG Base Excess ABG Hemoglobin Oxyhemoglobin Sodium 135 L Potassium Chloride 97.9 L Carbon Dioxide BUN 26 H Creatinine 0.5 L Glucose 138 H POC Glucose 115 H Lactic Acid Calcium 8.2 L Phosphorus Magnesium AST ALT Alkaline Phosphatase Lactate Dehydrogenase Troponin T C-Reactive Protein NT-Pro-B Natriuret Pep Total Protein Albumin LDL Cholesterol Direct Vitamin B12 Fluid Glucose Fluid Total Protein Vancomycin Trough Crossmatch 12/12/21 12/12/21 12/12/21 04:30 05:10 11:51 WBC RBC Hgb Hct MCV MCH MCHC RDW Plt Count Seg Neuts % (Manual) Lymphocytes % (Manual) Seg Neutrophils # Man Lymphocytes # (Manual) Monocytes # (Manual) PT INR D-Dimer ABG pH ABG pO2 ABG HCO3 ABG O2 Saturation ABG Base Excess ABG Hemoglobin Oxyhemoglobin Sodium Potassium Chloride Carbon Dioxide BUN Creatinine Glucose POC Glucose 119 H 119 H Lactic Acid Calcium Phosphorus Magnesium AST ALT Alkaline Phosphatase Lactate Dehydrogenase Troponin T C-Reactive Protein NT-Pro-B Natriuret Pep Total Protein Albumin LDL Cholesterol Direct Vitamin B12 Fluid Glucose Fluid Total Protein Vancomycin Trough Crossmatch See Detail 12/13/21 12/13/21 12/13/21 00:52 04:00 04:00 WBC RBC 2.73 L Hgb 7.4 L Hct 22.8 L MCV MCH 27 L MCHC RDW 20.5 H Plt Count Seg Neuts % (Manual) Lymphocytes % (Manual) Seg Neutrophils # Man Lymphocytes # (Manual) Monocytes # (Manual) PT INR D-Dimer ABG pH ABG pO2 ABG HCO3 ABG O2 Saturation ABG Base Excess ABG Hemoglobin Oxyhemoglobin Sodium 134 L Potassium Chloride 96.7 L Carbon Dioxide BUN 23 H Creatinine 0.5 L Glucose 131 H POC Glucose 131 H Lactic Acid Calcium 8.1 L Phosphorus Magnesium AST ALT Alkaline Phosphatase Lactate Dehydrogenase Troponin T C-Reactive Protein NT-Pro-B Natriuret Pep Total Protein Albumin LDL Cholesterol Direct Vitamin B12 Fluid Glucose Fluid Total Protein Vancomycin Trough Crossmatch 12/13/21 12/13/21 12/13/21 05:23 12:11 17:18 WBC RBC Hgb Hct MCV MCH MCHC RDW Plt Count Seg Neuts % (Manual) Lymphocytes % (Manual) Seg Neutrophils # Man Lymphocytes # (Manual) Monocytes # (Manual) PT INR D-Dimer ABG pH ABG pO2 ABG HCO3 ABG O2 Saturation ABG Base Excess ABG Hemoglobin Oxyhemoglobin Sodium Potassium Chloride Carbon Dioxide BUN Creatinine Glucose POC Glucose 121 H 143 H 148 H Lactic Acid Calcium Phosphorus Magnesium AST ALT Alkaline Phosphatase Lactate Dehydrogenase Troponin T C-Reactive Protein NT-Pro-B Natriuret Pep Total Protein Albumin LDL Cholesterol Direct Vitamin B12 Fluid Glucose Fluid Total Protein Vancomycin Trough Crossmatch 12/14/21 12/14/21 12/14/21 00:54 04:20 04:20 WBC RBC 2.39 L Hgb 6.5 L Hct 20.3 L MCV MCH 27 L MCHC RDW 20.3 H Plt Count Seg Neuts % (Manual) Lymphocytes % (Manual) Seg Neutrophils # Man Lymphocytes # (Manual) Monocytes # (Manual) PT INR D-Dimer ABG pH ABG pO2 ABG HCO3 ABG O2 Saturation ABG Base Excess ABG Hemoglobin Oxyhemoglobin Sodium 130 L Potassium Chloride 93.5 L Carbon Dioxide BUN 25 H Creatinine Glucose 123 H POC Glucose 123 H Lactic Acid Calcium 8.0 L Phosphorus Magnesium AST ALT Alkaline Phosphatase Lactate Dehydrogenase Troponin T C-Reactive Protein NT-Pro-B Natriuret Pep Total Protein Albumin LDL Cholesterol Direct Vitamin B12 Fluid Glucose Fluid Total Protein Vancomycin Trough Crossmatch 12/14/21 12/14/21 12/14/21 05:06 08:17 10:30 WBC RBC Hgb Hct MCV MCH MCHC RDW Plt Count Seg Neuts % (Manual) Lymphocytes % (Manual) Seg Neutrophils # Man Lymphocytes # (Manual) Monocytes # (Manual) PT INR D-Dimer ABG pH ABG pO2 ABG HCO3 ABG O2 Saturation ABG Base Excess ABG Hemoglobin Oxyhemoglobin Sodium Potassium Chloride Carbon Dioxide BUN Creatinine Glucose POC Glucose 131 H 119 H Lactic Acid Calcium Phosphorus Magnesium AST ALT Alkaline Phosphatase Lactate Dehydrogenase Troponin T C-Reactive Protein NT-Pro-B Natriuret Pep Total Protein Albumin LDL Cholesterol Direct Vitamin B12 Fluid Glucose Fluid Total Protein Vancomycin Trough Crossmatch See Detail 12/14/21 12/14/21 12/14/21 12:15 16:37 23:27 WBC RBC Hgb Hct MCV MCH MCHC RDW Plt Count Seg Neuts % (Manual) Lymphocytes % (Manual) Seg Neutrophils # Man Lymphocytes # (Manual) Monocytes # (Manual) PT INR D-Dimer ABG pH ABG pO2 ABG HCO3 ABG O2 Saturation ABG Base Excess ABG Hemoglobin Oxyhemoglobin Sodium Potassium Chloride Carbon Dioxide BUN Creatinine Glucose POC Glucose 147 H 141 H 130 H Lactic Acid Calcium Phosphorus Magnesium AST ALT Alkaline Phosphatase Lactate Dehydrogenase Troponin T C-Reactive Protein NT-Pro-B Natriuret Pep Total Protein Albumin LDL Cholesterol Direct Vitamin B12 Fluid Glucose Fluid Total Protein Vancomycin Trough Crossmatch 12/15/21 12/15/21 12/15/21 05:00 07:00 07:00 WBC 12.3 H RBC 3.27 L Hgb 8.8 L Hct 27.5 L D MCV MCH 27 L MCHC RDW 19.0 H Plt Count Seg Neuts % (Manual) Lymphocytes % (Manual) Seg Neutrophils # Man Lymphocytes # (Manual) Monocytes # (Manual) PT INR D-Dimer ABG pH ABG pO2 ABG HCO3 ABG O2 Saturation ABG Base Excess ABG Hemoglobin Oxyhemoglobin Sodium 134 L Potassium Chloride 95.7 L Carbon Dioxide BUN 28 H Creatinine Glucose 129 H POC Glucose 129 H Lactic Acid Calcium 8.2 L Phosphorus Magnesium AST ALT Alkaline Phosphatase Lactate Dehydrogenase Troponin T C-Reactive Protein NT-Pro-B Natriuret Pep Total Protein Albumin LDL Cholesterol Direct Vitamin B12 Fluid Glucose Fluid Total Protein Vancomycin Trough Crossmatch 12/15/21 12/15/21 12/15/21 11:18 16:00 23:39 WBC RBC Hgb Hct MCV MCH MCHC RDW Plt Count Seg Neuts % (Manual) Lymphocytes % (Manual) Seg Neutrophils # Man Lymphocytes # (Manual) Monocytes # (Manual) PT INR D-Dimer ABG pH ABG pO2 ABG HCO3 ABG O2 Saturation ABG Base Excess ABG Hemoglobin Oxyhemoglobin Sodium Potassium Chloride Carbon Dioxide BUN Creatinine Glucose POC Glucose 139 H 137 H 146 H Lactic Acid Calcium Phosphorus Magnesium AST ALT Alkaline Phosphatase Lactate Dehydrogenase Troponin T C-Reactive Protein NT-Pro-B Natriuret Pep Total Protein Albumin LDL Cholesterol Direct Vitamin B12 Fluid Glucose Fluid Total Protein Vancomycin Trough Crossmatch 12/16/21 12/16/21 12/16/21 05:24 10:21 10:21 WBC 15.3 H RBC 3.24 L Hgb 8.9 L Hct 27.7 L MCV MCH MCHC RDW 19.0 H Plt Count Seg Neuts % (Manual) Lymphocytes % (Manual) Seg Neutrophils # Man Lymphocytes # (Manual) Monocytes # (Manual) PT INR D-Dimer ABG pH ABG pO2 ABG HCO3 ABG O2 Saturation ABG Base Excess ABG Hemoglobin Oxyhemoglobin Sodium 131 L Potassium 3.5 L Chloride 92.7 L Carbon Dioxide BUN 36 H Creatinine Glucose 160 H POC Glucose 121 H Lactic Acid Calcium Phosphorus Magnesium 1.60 L AST ALT Alkaline Phosphatase Lactate Dehydrogenase Troponin T C-Reactive Protein NT-Pro-B Natriuret Pep Total Protein Albumin LDL Cholesterol Direct Vitamin B12 Fluid Glucose Fluid Total Protein Vancomycin Trough Crossmatch 12/16/21 12/16/21 12/16/21 11:21 18:28 20:52 WBC RBC Hgb Hct MCV MCH MCHC RDW Plt Count Seg Neuts % (Manual) Lymphocytes % (Manual) Seg Neutrophils # Man Lymphocytes # (Manual) Monocytes # (Manual) PT INR D-Dimer ABG pH 7.479 H ABG pO2 79.3 L ABG HCO3 27.3 H ABG O2 Saturation ABG Base Excess 3.6 H ABG Hemoglobin 9.1 L Oxyhemoglobin 94.9 L Sodium Potassium Chloride Carbon Dioxide BUN Creatinine Glucose POC Glucose 153 H 132 H Lactic Acid Calcium Phosphorus Magnesium AST ALT Alkaline Phosphatase Lactate Dehydrogenase Troponin T C-Reactive Protein NT-Pro-B Natriuret Pep Total Protein Albumin LDL Cholesterol Direct Vitamin B12 Fluid Glucose Fluid Total Protein Vancomycin Trough Crossmatch 12/16/21 12/17/21 12/17/21 23:30 04:25 04:25 WBC 12.3 H RBC 2.16 L Hgb 6.0 L Hct 18.1 L* D MCV MCH MCHC RDW 19.4 H Plt Count Seg Neuts % (Manual) Lymphocytes % (Manual) Seg Neutrophils # Man Lymphocytes # (Manual) Monocytes # (Manual) PT INR D-Dimer ABG pH ABG pO2 ABG HCO3 ABG O2 Saturation ABG Base Excess ABG Hemoglobin Oxyhemoglobin Sodium 132 L Potassium 3.2 L Chloride 112.0 H Carbon Dioxide BUN 32 H Creatinine Glucose 122 H POC Glucose 137 H Lactic Acid Calcium 6.8 L D Phosphorus Magnesium AST ALT Alkaline Phosphatase Lactate Dehydrogenase Troponin T C-Reactive Protein NT-Pro-B Natriuret Pep Total Protein Albumin LDL Cholesterol Direct Vitamin B12 Fluid Glucose Fluid Total Protein Vancomycin Trough Crossmatch 12/17/21 12/17/21 12/17/21 05:30 11:49 14:45 WBC RBC Hgb 9.7 L D Hct MCV MCH MCHC RDW Plt Count Seg Neuts % (Manual) Lymphocytes % (Manual) Seg Neutrophils # Man Lymphocytes # (Manual) Monocytes # (Manual) PT INR D-Dimer ABG pH ABG pO2 ABG HCO3 ABG O2 Saturation ABG Base Excess ABG Hemoglobin Oxyhemoglobin Sodium Potassium Chloride Carbon Dioxide BUN Creatinine Glucose POC Glucose 137 H 143 H Lactic Acid Calcium Phosphorus Magnesium AST ALT Alkaline Phosphatase Lactate Dehydrogenase Troponin T C-Reactive Protein NT-Pro-B Natriuret Pep Total Protein Albumin LDL Cholesterol Direct Vitamin B12 Fluid Glucose Fluid Total Protein Vancomycin Trough Crossmatch 12/17/21 12/18/21 12/18/21 17:01 05:04 05:04 WBC 13.8 H RBC 3.44 L Hgb 9.9 L Hct 28.8 L MCV MCH MCHC RDW 18.1 H Plt Count Seg Neuts % (Manual) Lymphocytes % (Manual) Seg Neutrophils # Man Lymphocytes # (Manual) Monocytes # (Manual) PT INR D-Dimer ABG pH ABG pO2 ABG HCO3 ABG O2 Saturation ABG Base Excess ABG Hemoglobin Oxyhemoglobin Sodium 132 L Potassium Chloride 97.4 L Carbon Dioxide BUN 38 H Creatinine Glucose 134 H POC Glucose 132 H Lactic Acid Calcium Phosphorus Magnesium AST ALT Alkaline Phosphatase Lactate Dehydrogenase Troponin T C-Reactive Protein NT-Pro-B Natriuret Pep Total Protein Albumin LDL Cholesterol Direct Vitamin B12 Fluid Glucose Fluid Total Protein Vancomycin Trough Crossmatch 12/18/21 12/18/21 12/18/21 05:28 10:57 16:27 WBC RBC Hgb Hct MCV MCH MCHC RDW Plt Count Seg Neuts % (Manual) Lymphocytes % (Manual) Seg Neutrophils # Man Lymphocytes # (Manual) Monocytes # (Manual) PT INR D-Dimer ABG pH ABG pO2 ABG HCO3 ABG O2 Saturation ABG Base Excess ABG Hemoglobin Oxyhemoglobin Sodium Potassium Chloride Carbon Dioxide BUN Creatinine Glucose POC Glucose 118 H 132 H 130 H Lactic Acid Calcium Phosphorus Magnesium AST ALT Alkaline Phosphatase Lactate Dehydrogenase Troponin T C-Reactive Protein NT-Pro-B Natriuret Pep Total Protein Albumin LDL Cholesterol Direct Vitamin B12 Fluid Glucose Fluid Total Protein Vancomycin Trough Crossmatch 12/19/21 12/19/21 12/19/21 00:02 04:41 04:41 WBC 16.0 H RBC 3.45 L Hgb 9.7 L Hct 29.1 L MCV MCH MCHC RDW 17.8 H Plt Count Seg Neuts % (Manual) Lymphocytes % (Manual) Seg Neutrophils # Man Lymphocytes # (Manual) Monocytes # (Manual) PT INR D-Dimer ABG pH ABG pO2 ABG HCO3 ABG O2 Saturation ABG Base Excess ABG Hemoglobin Oxyhemoglobin Sodium 133 L Potassium Chloride 97.9 L Carbon Dioxide BUN 36 H Creatinine 0.5 L Glucose 126 H POC Glucose 127 H Lactic Acid Calcium 8.3 L Phosphorus Magnesium AST ALT Alkaline Phosphatase Lactate Dehydrogenase Troponin T C-Reactive Protein NT-Pro-B Natriuret Pep Total Protein Albumin LDL Cholesterol Direct Vitamin B12 Fluid Glucose Fluid Total Protein Vancomycin Trough Crossmatch 12/19/21 12/19/21 12/19/21 05:26 12:20 16:43 WBC RBC Hgb Hct MCV MCH MCHC RDW Plt Count Seg Neuts % (Manual) Lymphocytes % (Manual) Seg Neutrophils # Man Lymphocytes # (Manual) Monocytes # (Manual) PT INR D-Dimer ABG pH ABG pO2 ABG HCO3 ABG O2 Saturation ABG Base Excess ABG Hemoglobin Oxyhemoglobin Sodium Potassium Chloride Carbon Dioxide BUN Creatinine Glucose POC Glucose 119 H 145 H 126 H Lactic Acid Calcium Phosphorus Magnesium AST ALT Alkaline Phosphatase Lactate Dehydrogenase Troponin T C-Reactive Protein NT-Pro-B Natriuret Pep Total Protein Albumin LDL Cholesterol Direct Vitamin B12 Fluid Glucose Fluid Total Protein Vancomycin Trough Crossmatch 12/19/21 12/20/21 12/20/21 23:30 04:54 04:54 WBC 12.3 H RBC 3.54 L Hgb 10.0 L Hct 29.5 L MCV MCH MCHC RDW 17.8 H Plt Count Seg Neuts % (Manual) 88.0 H Lymphocytes % (Manual) 6.0 L Seg Neutrophils # Man 10.8 H Lymphocytes # (Manual) 0.7 L Monocytes # (Manual) PT INR D-Dimer ABG pH ABG pO2 ABG HCO3 ABG O2 Saturation ABG Base Excess ABG Hemoglobin Oxyhemoglobin Sodium 131 L Potassium Chloride 96.2 L Carbon Dioxide BUN 36 H Creatinine 0.5 L Glucose 130 H POC Glucose 117 H Lactic Acid Calcium Phosphorus Magnesium AST ALT Alkaline Phosphatase Lactate Dehydrogenase Troponin T C-Reactive Protein NT-Pro-B Natriuret Pep Total Protein Albumin LDL Cholesterol Direct Vitamin B12 Fluid Glucose Fluid Total Protein Vancomycin Trough Crossmatch 12/20/21 12/20/21 12/20/21 05:20 11:51 17:30 WBC RBC Hgb Hct MCV MCH MCHC RDW Plt Count Seg Neuts % (Manual) Lymphocytes % (Manual) Seg Neutrophils # Man Lymphocytes # (Manual) Monocytes # (Manual) PT INR D-Dimer ABG pH ABG pO2 ABG HCO3 ABG O2 Saturation ABG Base Excess ABG Hemoglobin Oxyhemoglobin Sodium Potassium Chloride Carbon Dioxide BUN Creatinine Glucose POC Glucose 126 H 119 H 127 H Lactic Acid Calcium Phosphorus Magnesium AST ALT Alkaline Phosphatase Lactate Dehydrogenase Troponin T C-Reactive Protein NT-Pro-B Natriuret Pep Total Protein Albumin LDL Cholesterol Direct Vitamin B12 Fluid Glucose Fluid Total Protein Vancomycin Trough Crossmatch 12/21/21 12/21/21 12/21/21 00:45 04:21 04:21 WBC RBC 3.47 L Hgb 9.4 L Hct 29.2 L MCV MCH 27 L MCHC RDW 18.1 H Plt Count Seg Neuts % (Manual) Lymphocytes % (Manual) Seg Neutrophils # Man Lymphocytes # (Manual) Monocytes # (Manual) PT INR D-Dimer ABG pH ABG pO2 ABG HCO3 ABG O2 Saturation ABG Base Excess ABG Hemoglobin Oxyhemoglobin Sodium 134 L Potassium Chloride Carbon Dioxide BUN 35 H Creatinine 0.5 L Glucose 122 H POC Glucose 125 H Lactic Acid Calcium 8.2 L Phosphorus Magnesium AST ALT Alkaline Phosphatase Lactate Dehydrogenase Troponin T C-Reactive Protein NT-Pro-B Natriuret Pep Total Protein Albumin LDL Cholesterol Direct Vitamin B12 Fluid Glucose Fluid Total Protein Vancomycin Trough Crossmatch 12/21/21 12/21/21 12/21/21 05:38 11:29 16:16 WBC RBC Hgb Hct MCV MCH MCHC RDW Plt Count Seg Neuts % (Manual) Lymphocytes % (Manual) Seg Neutrophils # Man Lymphocytes # (Manual) Monocytes # (Manual) PT INR D-Dimer ABG pH ABG pO2 ABG HCO3 ABG O2 Saturation ABG Base Excess ABG Hemoglobin Oxyhemoglobin Sodium Potassium Chloride Carbon Dioxide BUN Creatinine Glucose POC Glucose 127 H 121 H 113 H Lactic Acid Calcium Phosphorus Magnesium AST ALT Alkaline Phosphatase Lactate Dehydrogenase Troponin T C-Reactive Protein NT-Pro-B Natriuret Pep Total Protein Albumin LDL Cholesterol Direct Vitamin B12 Fluid Glucose Fluid Total Protein Vancomycin Trough Crossmatch 12/22/21 12/22/21 12/23/21 04:58 04:58 06:40 WBC 11.5 H RBC 3.43 L Hgb 9.8 L Hct 28.7 L MCV MCH MCHC RDW 18.5 H 17.9 H Plt Count Seg Neuts % (Manual) Lymphocytes % (Manual) Seg Neutrophils # Man Lymphocytes # (Manual) Monocytes # (Manual) PT INR D-Dimer ABG pH ABG pO2 ABG HCO3 ABG O2 Saturation ABG Base Excess ABG Hemoglobin Oxyhemoglobin Sodium 130 L Potassium Chloride 97.8 L Carbon Dioxide BUN 31 H Creatinine 0.5 L Glucose 122 H POC Glucose Lactic Acid Calcium 7.9 L Phosphorus Magnesium AST ALT Alkaline Phosphatase Lactate Dehydrogenase Troponin T C-Reactive Protein NT-Pro-B Natriuret Pep Total Protein Albumin LDL Cholesterol Direct Vitamin B12 Fluid Glucose Fluid Total Protein Vancomycin Trough Crossmatch 12/23/21 12/23/21 12/24/21 06:40 23:25 04:24 WBC 11.7 H RBC Hgb 9.8 L Hct MCV MCH 26 L MCHC RDW 18.1 H Plt Count Seg Neuts % (Manual) Lymphocytes % (Manual) Seg Neutrophils # Man Lymphocytes # (Manual) Monocytes # (Manual) PT INR D-Dimer ABG pH ABG pO2 ABG HCO3 ABG O2 Saturation ABG Base Excess ABG Hemoglobin Oxyhemoglobin Sodium 136 L Potassium Chloride Carbon Dioxide BUN 27 H Creatinine 0.4 L Glucose 107 H POC Glucose 110 H Lactic Acid Calcium 8.1 L Phosphorus Magnesium AST ALT Alkaline Phosphatase Lactate Dehydrogenase Troponin T C-Reactive Protein NT-Pro-B Natriuret Pep Total Protein Albumin LDL Cholesterol Direct Vitamin B12 Fluid Glucose Fluid Total Protein Vancomycin Trough Crossmatch 12/24/21 12/24/21 12/24/21 04:24 11:08 15:45 WBC RBC Hgb Hct MCV MCH MCHC RDW Plt Count Seg Neuts % (Manual) Lymphocytes % (Manual) Seg Neutrophils # Man Lymphocytes # (Manual) Monocytes # (Manual) PT INR D-Dimer ABG pH ABG pO2 ABG HCO3 ABG O2 Saturation ABG Base Excess ABG Hemoglobin Oxyhemoglobin Sodium 132 L Potassium Chloride Carbon Dioxide BUN 27 H Creatinine 0.3 L Glucose 108 H POC Glucose 116 H 107 H Lactic Acid Calcium Phosphorus Magnesium AST ALT Alkaline Phosphatase Lactate Dehydrogenase Troponin T C-Reactive Protein NT-Pro-B Natriuret Pep Total Protein Albumin LDL Cholesterol Direct Vitamin B12 Fluid Glucose Fluid Total Protein Vancomycin Trough Crossmatch 12/24/21 12/25/21 12/25/21 23:43 05:29 11:48 WBC RBC Hgb Hct MCV MCH MCHC RDW Plt Count Seg Neuts % (Manual) Lymphocytes % (Manual) Seg Neutrophils # Man Lymphocytes # (Manual) Monocytes # (Manual) PT INR D-Dimer ABG pH ABG pO2 ABG HCO3 ABG O2 Saturation ABG Base Excess ABG Hemoglobin Oxyhemoglobin Sodium Potassium Chloride Carbon Dioxide BUN Creatinine Glucose POC Glucose 123 H 107 H 119 H Lactic Acid Calcium Phosphorus Magnesium AST ALT Alkaline Phosphatase Lactate Dehydrogenase Troponin T C-Reactive Protein NT-Pro-B Natriuret Pep Total Protein Albumin LDL Cholesterol Direct Vitamin B12 Fluid Glucose Fluid Total Protein Vancomycin Trough Crossmatch 12/26/21 12/26/21 12/26/21 00:06 05:56 07:51 WBC 11.4 H RBC 3.40 L Hgb 9.3 L Hct 28.3 L MCV MCH 27 L MCHC RDW 18.2 H Plt Count Seg Neuts % (Manual) Lymphocytes % (Manual) Seg Neutrophils # Man Lymphocytes # (Manual) Monocytes # (Manual) PT INR D-Dimer ABG pH ABG pO2 ABG HCO3 ABG O2 Saturation ABG Base Excess ABG Hemoglobin Oxyhemoglobin Sodium Potassium Chloride Carbon Dioxide BUN Creatinine Glucose POC Glucose 133 H 107 H Lactic Acid Calcium Phosphorus Magnesium AST ALT Alkaline Phosphatase Lactate Dehydrogenase Troponin T C-Reactive Protein NT-Pro-B Natriuret Pep Total Protein Albumin LDL Cholesterol Direct Vitamin B12 Fluid Glucose Fluid Total Protein Vancomycin Trough Crossmatch 12/26/21 12/26/21 12/26/21 07:51 11:43 17:06 WBC RBC Hgb Hct MCV MCH MCHC RDW Plt Count Seg Neuts % (Manual) Lymphocytes % (Manual) Seg Neutrophils # Man Lymphocytes # (Manual) Monocytes # (Manual) PT INR D-Dimer ABG pH ABG pO2 ABG HCO3 ABG O2 Saturation ABG Base Excess ABG Hemoglobin Oxyhemoglobin Sodium 136 L Potassium Chloride Carbon Dioxide BUN 25 H Creatinine 0.3 L Glucose 131 H POC Glucose 119 H 128 H Lactic Acid Calcium Phosphorus Magnesium AST ALT Alkaline Phosphatase Lactate Dehydrogenase Troponin T C-Reactive Protein NT-Pro-B Natriuret Pep Total Protein Albumin LDL Cholesterol Direct Vitamin B12 Fluid Glucose Fluid Total Protein Vancomycin Trough Crossmatch 12/28/21 12/28/21 12/29/21 09:05 09:05 04:40 WBC RBC 3.19 L Hgb 8.9 L Hct 26.4 L MCV MCH 27 L MCHC RDW 18.4 H 17.9 H Plt Count Seg Neuts % (Manual) Lymphocytes % (Manual) Seg Neutrophils # Man Lymphocytes # (Manual) Monocytes # (Manual) PT INR D-Dimer ABG pH ABG pO2 ABG HCO3 ABG O2 Saturation ABG Base Excess ABG Hemoglobin Oxyhemoglobin Sodium 135 L Potassium Chloride 97.8 L Carbon Dioxide BUN 18 H Creatinine 0.3 L Glucose POC Glucose Lactic Acid Calcium Phosphorus Magnesium AST ALT Alkaline Phosphatase Lactate Dehydrogenase Troponin T C-Reactive Protein NT-Pro-B Natriuret Pep Total Protein Albumin LDL Cholesterol Direct Vitamin B12 Fluid Glucose Fluid Total Protein Vancomycin Trough Crossmatch 12/29/21 12/29/21 12/30/21 04:40 12:47 04:05 WBC RBC 3.29 L Hgb 8.7 L Hct 27.6 L MCV MCH 27 L MCHC RDW 17.6 H Plt Count Seg Neuts % (Manual) Lymphocytes % (Manual) Seg Neutrophils # Man Lymphocytes # (Manual) Monocytes # (Manual) PT INR D-Dimer ABG pH ABG pO2 ABG HCO3 ABG O2 Saturation ABG Base Excess ABG Hemoglobin Oxyhemoglobin Sodium 136 L Potassium Chloride Carbon Dioxide BUN Creatinine 0.3 L Glucose POC Glucose 67 L Lactic Acid Calcium 8.3 L Phosphorus Magnesium AST ALT Alkaline Phosphatase Lactate Dehydrogenase Troponin T C-Reactive Protein NT-Pro-B Natriuret Pep Total Protein Albumin LDL Cholesterol Direct Vitamin B12 Fluid Glucose Fluid Total Protein Vancomycin Trough Crossmatch 12/30/21 12/31/21 12/31/21 04:05 00:07 04:00 WBC RBC 3.05 L Hgb 8.5 L Hct 25.5 L MCV MCH MCHC RDW 18.2 H Plt Count Seg Neuts % (Manual) Lymphocytes % (Manual) Seg Neutrophils # Man Lymphocytes # (Manual) Monocytes # (Manual) PT INR D-Dimer ABG pH ABG pO2 ABG HCO3 ABG O2 Saturation ABG Base Excess ABG Hemoglobin Oxyhemoglobin Sodium 136 L Potassium 3.5 L Chloride Carbon Dioxide BUN Creatinine 0.4 L Glucose POC Glucose 139 H Lactic Acid Calcium Phosphorus Magnesium 1.50 L AST ALT Alkaline Phosphatase Lactate Dehydrogenase Troponin T C-Reactive Protein NT-Pro-B Natriuret Pep Total Protein Albumin LDL Cholesterol Direct Vitamin B12 Fluid Glucose Fluid Total Protein Vancomycin Trough Crossmatch 12/31/21 12/31/21 12/31/21 04:00 04:52 11:23 WBC RBC Hgb Hct MCV MCH MCHC RDW Plt Count Seg Neuts % (Manual) Lymphocytes % (Manual) Seg Neutrophils # Man Lymphocytes # (Manual) Monocytes # (Manual) PT INR D-Dimer ABG pH ABG pO2 ABG HCO3 ABG O2 Saturation ABG Base Excess ABG Hemoglobin Oxyhemoglobin Sodium Potassium Chloride Carbon Dioxide BUN 19 H Creatinine 0.4 L Glucose 116 H POC Glucose 121 H 116 H Lactic Acid Calcium Phosphorus Magnesium AST ALT Alkaline Phosphatase Lactate Dehydrogenase Troponin T C-Reactive Protein NT-Pro-B Natriuret Pep Total Protein Albumin LDL Cholesterol Direct Vitamin B12 Fluid Glucose Fluid Total Protein Vancomycin Trough Crossmatch 12/31/21 01/01/22 01/01/22 17:42 04:31 04:31 WBC RBC 2.83 L Hgb 7.7 L Hct 23.2 L MCV MCH 27 L MCHC RDW 18.3 H Plt Count Seg Neuts % (Manual) Lymphocytes % (Manual) Seg Neutrophils # Man Lymphocytes # (Manual) Monocytes # (Manual) PT INR D-Dimer ABG pH ABG pO2 ABG HCO3 ABG O2 Saturation ABG Base Excess ABG Hemoglobin Oxyhemoglobin Sodium 135 L Potassium Chloride 97.7 L Carbon Dioxide BUN 21 H Creatinine 0.5 L Glucose 127 H POC Glucose 107 H Lactic Acid Calcium 8.0 L Phosphorus Magnesium AST ALT Alkaline Phosphatase Lactate Dehydrogenase Troponin T C-Reactive Protein NT-Pro-B Natriuret Pep Total Protein Albumin LDL Cholesterol Direct Vitamin B12 Fluid Glucose Fluid Total Protein Vancomycin Trough Crossmatch 01/01/22 01/01/22 01/01/22 05:24 11:25 18:11 WBC RBC Hgb Hct MCV MCH MCHC RDW Plt Count Seg Neuts % (Manual) Lymphocytes % (Manual) Seg Neutrophils # Man Lymphocytes # (Manual) Monocytes # (Manual) PT INR D-Dimer ABG pH ABG pO2 ABG HCO3 ABG O2 Saturation ABG Base Excess ABG Hemoglobin Oxyhemoglobin Sodium Potassium Chloride Carbon Dioxide BUN Creatinine Glucose POC Glucose 124 H 140 H 144 H Lactic Acid Calcium Phosphorus Magnesium AST ALT Alkaline Phosphatase Lactate Dehydrogenase Troponin T C-Reactive Protein NT-Pro-B Natriuret Pep Total Protein Albumin LDL Cholesterol Direct Vitamin B12 Fluid Glucose Fluid Total Protein Vancomycin Trough Crossmatch 01/01/22 01/02/22 01/02/22 23:26 04:01 04:01 WBC RBC 2.57 L Hgb 7.1 L Hct 21.5 L MCV MCH MCHC RDW 18.1 H Plt Count Seg Neuts % (Manual) Lymphocytes % (Manual) Seg Neutrophils # Man Lymphocytes # (Manual) Monocytes # (Manual) PT INR D-Dimer ABG pH ABG pO2 ABG HCO3 ABG O2 Saturation ABG Base Excess ABG Hemoglobin Oxyhemoglobin Sodium 131 L Potassium 3.5 L Chloride 94.8 L Carbon Dioxide BUN 27 H Creatinine Glucose 121 H POC Glucose 121 H Lactic Acid Calcium Phosphorus Magnesium AST ALT Alkaline Phosphatase Lactate Dehydrogenase Troponin T C-Reactive Protein NT-Pro-B Natriuret Pep Total Protein Albumin LDL Cholesterol Direct Vitamin B12 Fluid Glucose Fluid Total Protein Vancomycin Trough Crossmatch 01/02/22 01/02/22 01/02/22 05:30 11:10 16:08 WBC RBC Hgb Hct MCV MCH MCHC RDW Plt Count Seg Neuts % (Manual) Lymphocytes % (Manual) Seg Neutrophils # Man Lymphocytes # (Manual) Monocytes # (Manual) PT INR D-Dimer ABG pH ABG pO2 ABG HCO3 ABG O2 Saturation ABG Base Excess ABG Hemoglobin Oxyhemoglobin Sodium Potassium Chloride Carbon Dioxide BUN Creatinine Glucose POC Glucose 124 H 117 H 130 H Lactic Acid Calcium Phosphorus Magnesium AST ALT Alkaline Phosphatase Lactate Dehydrogenase Troponin T C-Reactive Protein NT-Pro-B Natriuret Pep Total Protein Albumin LDL Cholesterol Direct Vitamin B12 Fluid Glucose Fluid Total Protein Vancomycin Trough Crossmatch 01/02/22 01/02/22 01/03/22 17:30 23:26 04:53 WBC RBC 2.82 L Hgb 7.7 L Hct 23.4 L MCV MCH 27 L MCHC RDW 18.0 H Plt Count Seg Neuts % (Manual) Lymphocytes % (Manual) Seg Neutrophils # Man Lymphocytes # (Manual) Monocytes # (Manual) PT INR D-Dimer ABG pH ABG pO2 ABG HCO3 ABG O2 Saturation ABG Base Excess ABG Hemoglobin Oxyhemoglobin Sodium Potassium Chloride Carbon Dioxide BUN Creatinine Glucose POC Glucose 114 H Lactic Acid Calcium Phosphorus Magnesium AST ALT Alkaline Phosphatase Lactate Dehydrogenase Troponin T C-Reactive Protein NT-Pro-B Natriuret Pep Total Protein Albumin LDL Cholesterol Direct Vitamin B12 Fluid Glucose Fluid Total Protein Vancomycin Trough 22.8 H Crossmatch 01/03/22 01/03/22 01/03/22 04:53 06:23 17:35 WBC RBC Hgb Hct MCV MCH MCHC RDW Plt Count Seg Neuts % (Manual) Lymphocytes % (Manual) Seg Neutrophils # Man Lymphocytes # (Manual) Monocytes # (Manual) PT INR D-Dimer ABG pH ABG pO2 ABG HCO3 ABG O2 Saturation ABG Base Excess ABG Hemoglobin Oxyhemoglobin Sodium 133 L Potassium Chloride 96.2 L Carbon Dioxide BUN 30 H Creatinine Glucose 107 H POC Glucose 122 H 107 H Lactic Acid Calcium Phosphorus Magnesium AST ALT Alkaline Phosphatase Lactate Dehydrogenase Troponin T C-Reactive Protein NT-Pro-B Natriuret Pep Total Protein Albumin LDL Cholesterol Direct Vitamin B12 Fluid Glucose Fluid Total Protein Vancomycin Trough Crossmatch 01/04/22 01/04/22 01/04/22 04:00 12:32 16:45 WBC RBC Hgb Hct MCV MCH MCHC RDW Plt Count Seg Neuts % (Manual) Lymphocytes % (Manual) Seg Neutrophils # Man Lymphocytes # (Manual) Monocytes # (Manual) PT INR D-Dimer ABG pH ABG pO2 ABG HCO3 ABG O2 Saturation ABG Base Excess ABG Hemoglobin Oxyhemoglobin Sodium 132 L Potassium Chloride 92.8 L Carbon Dioxide BUN 30 H Creatinine Glucose 115 H POC Glucose 111 H 111 H Lactic Acid Calcium Phosphorus Magnesium 1.60 L AST ALT Alkaline Phosphatase Lactate Dehydrogenase Troponin T C-Reactive Protein NT-Pro-B Natriuret Pep Total Protein Albumin LDL Cholesterol Direct Vitamin B12 Fluid Glucose Fluid Total Protein Vancomycin Trough Crossmatch 01/05/22 01/05/22 01/05/22 04:30 04:30 17:04 WBC RBC 3.11 L Hgb 8.4 L Hct 25.5 L MCV MCH 27 L MCHC RDW 17.6 H Plt Count Seg Neuts % (Manual) Lymphocytes % (Manual) Seg Neutrophils # Man Lymphocytes # (Manual) Monocytes # (Manual) PT INR D-Dimer ABG pH ABG pO2 ABG HCO3 ABG O2 Saturation ABG Base Excess ABG Hemoglobin Oxyhemoglobin Sodium 135 L Potassium Chloride 93.6 L Carbon Dioxide BUN 29 H Creatinine Glucose POC Glucose 67 L Lactic Acid Calcium Phosphorus Magnesium AST ALT Alkaline Phosphatase Lactate Dehydrogenase Troponin T C-Reactive Protein NT-Pro-B Natriuret Pep Total Protein Albumin LDL Cholesterol Direct Vitamin B12 Fluid Glucose Fluid Total Protein Vancomycin Trough Crossmatch 01/05/22 01/06/22 01/06/22 23:27 04:06 04:06 WBC RBC 2.89 L Hgb 7.7 L Hct 23.8 L MCV MCH 27 L MCHC RDW 18.0 H Plt Count Seg Neuts % (Manual) Lymphocytes % (Manual) Seg Neutrophils # Man Lymphocytes # (Manual) Monocytes # (Manual) PT 16.9 H INR 1.23 H D-Dimer ABG pH ABG pO2 ABG HCO3 ABG O2 Saturation ABG Base Excess ABG Hemoglobin Oxyhemoglobin Sodium Potassium Chloride Carbon Dioxide BUN Creatinine Glucose POC Glucose 110 H Lactic Acid Calcium Phosphorus Magnesium AST ALT Alkaline Phosphatase Lactate Dehydrogenase Troponin T C-Reactive Protein NT-Pro-B Natriuret Pep Total Protein Albumin LDL Cholesterol Direct Vitamin B12 Fluid Glucose Fluid Total Protein Vancomycin Trough Crossmatch 01/06/22 01/06/22 01/06/22 04:06 13:40 23:41 WBC RBC Hgb Hct MCV MCH MCHC RDW Plt Count Seg Neuts % (Manual) Lymphocytes % (Manual) Seg Neutrophils # Man Lymphocytes # (Manual) Monocytes # (Manual) PT INR D-Dimer ABG pH ABG pO2 ABG HCO3 ABG O2 Saturation ABG Base Excess ABG Hemoglobin Oxyhemoglobin Sodium 132 L Potassium Chloride 92.3 L Carbon Dioxide BUN 26 H Creatinine Glucose 111 H POC Glucose 120 H Lactic Acid Calcium Phosphorus Magnesium AST ALT Alkaline Phosphatase Lactate Dehydrogenase Troponin T C-Reactive Protein NT-Pro-B Natriuret Pep Total Protein Albumin LDL Cholesterol Direct Vitamin B12 Fluid Glucose 96 H Fluid Total Protein < 3.0 L Vancomycin Trough Crossmatch 01/07/22 01/07/22 01/07/22 05:20 11:30 17:00 WBC RBC Hgb Hct MCV MCH MCHC RDW Plt Count Seg Neuts % (Manual) Lymphocytes % (Manual) Seg Neutrophils # Man Lymphocytes # (Manual) Monocytes # (Manual) PT INR D-Dimer ABG pH ABG pO2 ABG HCO3 ABG O2 Saturation ABG Base Excess ABG Hemoglobin Oxyhemoglobin Sodium Potassium Chloride Carbon Dioxide BUN Creatinine Glucose POC Glucose 111 H 113 H 121 H Lactic Acid Calcium Phosphorus Magnesium AST ALT Alkaline Phosphatase Lactate Dehydrogenase Troponin T C-Reactive Protein NT-Pro-B Natriuret Pep Total Protein Albumin LDL Cholesterol Direct Vitamin B12 Fluid Glucose Fluid Total Protein Vancomycin Trough Crossmatch 01/07/22 01/08/22 01/08/22 23:41 11:26 16:23 WBC RBC Hgb Hct MCV MCH MCHC RDW Plt Count Seg Neuts % (Manual) Lymphocytes % (Manual) Seg Neutrophils # Man Lymphocytes # (Manual) Monocytes # (Manual) PT INR D-Dimer ABG pH ABG pO2 ABG HCO3 ABG O2 Saturation ABG Base Excess ABG Hemoglobin Oxyhemoglobin Sodium Potassium Chloride Carbon Dioxide BUN Creatinine Glucose POC Glucose 110 H 129 H 118 H Lactic Acid Calcium Phosphorus Magnesium AST ALT Alkaline Phosphatase Lactate Dehydrogenase Troponin T C-Reactive Protein NT-Pro-B Natriuret Pep Total Protein Albumin LDL Cholesterol Direct Vitamin B12 Fluid Glucose Fluid Total Protein Vancomycin Trough Crossmatch 01/09/22 01/10/22 01/10/22 18:13 00:27 04:00 WBC RBC Hgb Hct MCV MCH MCHC RDW Plt Count Seg Neuts % (Manual) Lymphocytes % (Manual) Seg Neutrophils # Man Lymphocytes # (Manual) Monocytes # (Manual) PT INR D-Dimer ABG pH ABG pO2 ABG HCO3 ABG O2 Saturation ABG Base Excess ABG Hemoglobin Oxyhemoglobin Sodium 133 L Potassium Chloride 92.6 L Carbon Dioxide 31 H BUN 29 H Creatinine 0.5 L Glucose 115 H POC Glucose 118 H 111 H Lactic Acid Calcium Phosphorus Magnesium AST ALT Alkaline Phosphatase Lactate Dehydrogenase Troponin T C-Reactive Protein NT-Pro-B Natriuret Pep Total Protein Albumin LDL Cholesterol Direct Vitamin B12 Fluid Glucose Fluid Total Protein Vancomycin Trough Crossmatch 01/10/22 01/11/22 01/11/22 05:47 05:10 11:14 WBC RBC Hgb Hct MCV MCH MCHC RDW Plt Count Seg Neuts % (Manual) Lymphocytes % (Manual) Seg Neutrophils # Man Lymphocytes # (Manual) Monocytes # (Manual) PT INR D-Dimer ABG pH ABG pO2 ABG HCO3 ABG O2 Saturation ABG Base Excess ABG Hemoglobin Oxyhemoglobin Sodium Potassium Chloride Carbon Dioxide BUN Creatinine Glucose POC Glucose 106 H 118 H 136 H Lactic Acid Calcium Phosphorus Magnesium AST ALT Alkaline Phosphatase Lactate Dehydrogenase Troponin T C-Reactive Protein NT-Pro-B Natriuret Pep Total Protein Albumin LDL Cholesterol Direct Vitamin B12 Fluid Glucose Fluid Total Protein Vancomycin Trough Crossmatch 01/11/22 01/11/22 01/12/22 17:14 23:52 05:39 WBC RBC Hgb Hct MCV MCH MCHC RDW Plt Count Seg Neuts % (Manual) Lymphocytes % (Manual) Seg Neutrophils # Man Lymphocytes # (Manual) Monocytes # (Manual) PT INR D-Dimer ABG pH ABG pO2 ABG HCO3 ABG O2 Saturation ABG Base Excess ABG Hemoglobin Oxyhemoglobin Sodium Potassium Chloride Carbon Dioxide BUN Creatinine Glucose POC Glucose 117 H 110 H 110 H Lactic Acid Calcium Phosphorus Magnesium AST ALT Alkaline Phosphatase Lactate Dehydrogenase Troponin T C-Reactive Protein NT-Pro-B Natriuret Pep Total Protein Albumin LDL Cholesterol Direct Vitamin B12 Fluid Glucose Fluid Total Protein Vancomycin Trough Crossmatch 01/13/22 01/13/22 01/14/22 11:15 17:21 05:33 WBC RBC Hgb Hct MCV MCH MCHC RDW Plt Count Seg Neuts % (Manual) Lymphocytes % (Manual) Seg Neutrophils # Man Lymphocytes # (Manual) Monocytes # (Manual) PT INR D-Dimer ABG pH ABG pO2 ABG HCO3 ABG O2 Saturation ABG Base Excess ABG Hemoglobin Oxyhemoglobin Sodium Potassium Chloride Carbon Dioxide BUN Creatinine Glucose POC Glucose 113 H 121 H 136 H Lactic Acid Calcium Phosphorus Magnesium AST ALT Alkaline Phosphatase Lactate Dehydrogenase Troponin T C-Reactive Protein NT-Pro-B Natriuret Pep Total Protein Albumin LDL Cholesterol Direct Vitamin B12 Fluid Glucose Fluid Total Protein Vancomycin Trough Crossmatch 01/14/22 01/15/22 01/15/22 11:28 00:13 05:24 WBC RBC Hgb Hct MCV MCH MCHC RDW Plt Count Seg Neuts % (Manual) Lymphocytes % (Manual) Seg Neutrophils # Man Lymphocytes # (Manual) Monocytes # (Manual) PT INR D-Dimer ABG pH ABG pO2 ABG HCO3 ABG O2 Saturation ABG Base Excess ABG Hemoglobin Oxyhemoglobin Sodium Potassium Chloride Carbon Dioxide BUN Creatinine Glucose POC Glucose 117 H 109 H 117 H Lactic Acid Calcium Phosphorus Magnesium AST ALT Alkaline Phosphatase Lactate Dehydrogenase Troponin T C-Reactive Protein NT-Pro-B Natriuret Pep Total Protein Albumin LDL Cholesterol Direct Vitamin B12 Fluid Glucose Fluid Total Protein Vancomycin Trough Crossmatch 01/15/22 01/15/22 01/15/22 11:38 14:36 17:05 WBC RBC 3.11 L Hgb 8.4 L Hct 25.7 L MCV MCH 27 L MCHC RDW 17.2 H Plt Count Seg Neuts % (Manual) 82.0 H Lymphocytes % (Manual) 11.0 L Seg Neutrophils # Man 8.8 H Lymphocytes # (Manual) Monocytes # (Manual) PT INR D-Dimer ABG pH ABG pO2 ABG HCO3 ABG O2 Saturation ABG Base Excess ABG Hemoglobin Oxyhemoglobin Sodium Potassium Chloride Carbon Dioxide BUN Creatinine Glucose POC Glucose 107 H 108 H Lactic Acid Calcium Phosphorus Magnesium AST ALT Alkaline Phosphatase Lactate Dehydrogenase Troponin T C-Reactive Protein NT-Pro-B Natriuret Pep Total Protein Albumin LDL Cholesterol Direct Vitamin B12 Fluid Glucose Fluid Total Protein Vancomycin Trough Crossmatch 01/15/22 01/15/22 01/15/22 21:07 Unknown Unknown WBC RBC 2.97 L Hgb 8.0 L Hct 24.3 L MCV MCH 27 L MCHC RDW 17.2 H Plt Count Seg Neuts % (Manual) Lymphocytes % (Manual) Seg Neutrophils # Man Lymphocytes # (Manual) Monocytes # (Manual) PT INR D-Dimer ABG pH ABG pO2 ABG HCO3 ABG O2 Saturation ABG Base Excess ABG Hemoglobin Oxyhemoglobin Sodium 131 L Potassium Chloride 93.1 L Carbon Dioxide BUN 27 H Creatinine Glucose 110 H POC Glucose Lactic Acid Calcium 8.3 L Phosphorus Magnesium AST ALT Alkaline Phosphatase Lactate Dehydrogenase Troponin T 0.088 H C-Reactive Protein NT-Pro-B Natriuret Pep Total Protein Albumin LDL Cholesterol Direct 44 L Vitamin B12 Fluid Glucose Fluid Total Protein Vancomycin Trough Crossmatch 0301/16/22 01/16/22 Unknown 05:21 12:59 WBC RBC Hgb Hct MCV MCH MCHC RDW Plt Count Seg Neuts % (Manual) Lymphocytes % (Manual) Seg Neutrophils # Man Lymphocytes # (Manual) Monocytes # (Manual) PT INR D-Dimer ABG pH ABG pO2 ABG HCO3 ABG O2 Saturation ABG Base Excess ABG Hemoglobin Oxyhemoglobin Sodium 134 L 134 L Potassium 3.4 L Chloride 93.9 L 95.4 L Carbon Dioxide BUN 26 H 24 H Creatinine Glucose 168 H POC Glucose 159 H Lactic Acid Calcium 8.1 L Phosphorus Magnesium AST ALT Alkaline Phosphatase Lactate Dehydrogenase Troponin T 0.078 H C-Reactive Protein NT-Pro-B Natriuret Pep Total Protein Albumin LDL Cholesterol Direct Vitamin B12 Fluid Glucose Fluid Total Protein Vancomycin Trough Crossmatch 01/16/22 01/17/22 01/17/22 23:22 05:20 14:24 WBC RBC Hgb Hct MCV MCH MCHC RDW Plt Count Seg Neuts % (Manual) Lymphocytes % (Manual) Seg Neutrophils # Man Lymphocytes # (Manual) Monocytes # (Manual) PT INR D-Dimer ABG pH ABG pO2 55.0 L ABG HCO3 29.5 H ABG O2 Saturation 87.8 L ABG Base Excess 4.5 H ABG Hemoglobin 9.3 L Oxyhemoglobin 86.1 L Sodium Potassium Chloride Carbon Dioxide BUN Creatinine Glucose POC Glucose 113 H 111 H Lactic Acid Calcium Phosphorus Magnesium AST ALT Alkaline Phosphatase Lactate Dehydrogenase Troponin T C-Reactive Protein NT-Pro-B Natriuret Pep Total Protein Albumin LDL Cholesterol Direct Vitamin B12 Fluid Glucose Fluid Total Protein Vancomycin Trough Crossmatch 01/17/22 01/18/22 01/18/22 17:14 05:39 11:53 WBC RBC Hgb Hct MCV MCH MCHC RDW Plt Count Seg Neuts % (Manual) Lymphocytes % (Manual) Seg Neutrophils # Man Lymphocytes # (Manual) Monocytes # (Manual) PT INR D-Dimer ABG pH ABG pO2 ABG HCO3 ABG O2 Saturation ABG Base Excess ABG Hemoglobin Oxyhemoglobin Sodium Potassium Chloride Carbon Dioxide BUN Creatinine Glucose POC Glucose 126 H 108 H 113 H Lactic Acid Calcium Phosphorus Magnesium AST ALT Alkaline Phosphatase Lactate Dehydrogenase Troponin T C-Reactive Protein NT-Pro-B Natriuret Pep Total Protein Albumin LDL Cholesterol Direct Vitamin B12 Fluid Glucose Fluid Total Protein Vancomycin Trough Crossmatch 0401/19/22 01/19/22 12:50 00:04 04:50 WBC RBC 3.14 L Hgb 8.4 L Hct 26.0 L MCV MCH 27 L MCHC RDW 18.2 H Plt Count Seg Neuts % (Manual) Lymphocytes % (Manual) Seg Neutrophils # Man Lymphocytes # (Manual) Monocytes # (Manual) PT INR D-Dimer ABG pH ABG pO2 112.3 H ABG HCO3 30.9 H ABG O2 Saturation ABG Base Excess 5.8 H ABG Hemoglobin 8.8 L Oxyhemoglobin Sodium Potassium Chloride Carbon Dioxide BUN Creatinine Glucose POC Glucose 115 H Lactic Acid Calcium Phosphorus Magnesium AST ALT Alkaline Phosphatase Lactate Dehydrogenase Troponin T C-Reactive Protein NT-Pro-B Natriuret Pep Total Protein Albumin LDL Cholesterol Direct Vitamin B12 Fluid Glucose Fluid Total Protein Vancomycin Trough Crossmatch 01/19/22 01/19/22 01/19/22 04:50 11:51 20:45 WBC RBC Hgb Hct MCV MCH MCHC RDW Plt Count Seg Neuts % (Manual) Lymphocytes % (Manual) Seg Neutrophils # Man Lymphocytes # (Manual) Monocytes # (Manual) PT INR D-Dimer ABG pH ABG pO2 95.2 H ABG HCO3 29.8 H ABG O2 Saturation ABG Base Excess 4.3 H ABG Hemoglobin 8.0 L Oxyhemoglobin Sodium 134 L Potassium Chloride 95.4 L Carbon Dioxide BUN 28 H Creatinine Glucose POC Glucose 111 H Lactic Acid Calcium Phosphorus Magnesium AST ALT Alkaline Phosphatase Lactate Dehydrogenase Troponin T C-Reactive Protein NT-Pro-B Natriuret Pep Total Protein Albumin LDL Cholesterol Direct Vitamin B12 Fluid Glucose Fluid Total Protein Vancomycin Trough Crossmatch 01/20/22 01/21/22 01/22/22 11:43 23:32 11:12 WBC RBC Hgb Hct MCV MCH MCHC RDW Plt Count Seg Neuts % (Manual) Lymphocytes % (Manual) Seg Neutrophils # Man Lymphocytes # (Manual) Monocytes # (Manual) PT INR D-Dimer ABG pH ABG pO2 ABG HCO3 ABG O2 Saturation ABG Base Excess ABG Hemoglobin Oxyhemoglobin Sodium Potassium Chloride Carbon Dioxide BUN Creatinine Glucose POC Glucose 118 H 113 H 110 H Lactic Acid Calcium Phosphorus Magnesium AST ALT Alkaline Phosphatase Lactate Dehydrogenase Troponin T C-Reactive Protein NT-Pro-B Natriuret Pep Total Protein Albumin LDL Cholesterol Direct Vitamin B12 Fluid Glucose Fluid Total Protein Vancomycin Trough Crossmatch Chest x-ray: report reviewed, image reviewed Additional Studies: CHEST 1 VIEW 01/21/2022 2:36 AM INDICATION / CLINICAL INFORMATION: pleural effusion. COMPARISON: 01/19/2022 FINDINGS: SUPPORT DEVICES: Stable, satisfactory device positioning. HEART / MEDIASTINUM: Improved cardiomegaly. LUNGS / PLEURA: Mildly improved pulmonary edema and bilateral pleural effusions. No pneumothorax. ADDITIONAL FINDINGS: No significant additional findings. IMPRESSION: 1. Mild improvement Allied health notes reviewed: nursing
[2022-01-22] MEDS: MELATONIN 5 MG TAB PO SCH (22:39)
[2022-01-22] MEDS: traZODone 50 MG TAB PO SCH (22:41)
[2022-01-23] MEDS: ALPRAZolam 0.25 MG TAB FEEDTUBE PRN (02:17)
[2022-01-23] MEDS: ALPRAZolam 0.5 MG TAB FEEDTUBE PRN (02:18)
[2022-01-23] MEDS: SUCRALFATE 1 GM/10 ML ORAL LIQD FEEDTUBE SCH ×3 (07:00→17:36)
[2022-01-23] MEDS: METOPROLOL TARTRATE 25 MG TAB FEEDTUBE SCH (10:50)
[2022-01-23] MEDS: SPIRONOLACTONE 25 MG TAB FEEDTUBE SCH (10:50)
[2022-01-23] MEDS: LANSOPRAZOLE 30 MG SOLUTAB FEEDTUBE SCH ×2 (10:50→21:55)
[2022-01-23] MEDS: MIDODRINE 5 MG TAB FEEDTUBE SCH ×3 (10:50→17:36)
[2022-01-23] MEDS: busPIRone 5 MG TAB FEEDTUBE SCH ×2 (10:50→21:52)
[2022-01-23] MEDS: QUEtiapine 25 MG TAB FEEDTUBE SCH ×2 (10:50→21:56)
[2022-01-23] MEDS: FUROSEMIDE 20 MG TAB PO SCH (10:50)
[2022-01-23] MEDS: DOCUSATE SODIUM 100 MG/10 ML ORAL LIQD FEEDTUBE SCH (10:51)
[2022-01-23] MEDS: SENNOSIDES ORAL LIQD 8.8 MG/5 ML ORAL LIQD FEEDTUBE SCH (10:52)
[2022-01-23] MEDS: POLYETHYLENE GLYCOL 3350 17 GM POWDER FEEDTUBE SCH (10:52)
[2022-01-23] MEDS: HYDROcodone/ACETAMINOPHEN 10-325MG TAB FEEDTUBE SCH ×3 (10:55→21:48)
[2022-01-23 12:16] LABS: ABG Base Excess 1.1 mmol/L (-2.0-3.0); ABG Methemoglobin 0.6 % (0.0-1.5); ABG Oxygen Saturation 70.8 % (95.0-99.0); ABG PCO2 56.8 mm Hg; ABG PH 7.31 pH Units (7.350-7.450); ABG PO2 43.9 mm Hg (80.0-90.0)
[2022-01-23 14:36] LABS: Bacteria,Urine 4+ /HPF (Negative); Bilirubin,Urine NEG (Negative); Blood,Urine SM (Negative); Color,Urine Amber (Yellow); Mucus,Urine FEW /HPF; Protein,Urine <15 mg/dL mg/dL (Negative); Sperm,Urine FEW /HPF (NP)
--- NOTE | 2022-01-23 17:41 | Progress Note ---
Assessment and Plan 81-year-old female with known history of diabetes mellitus, hypertension and arthritis brought to the emergency room via EMS for shortness of breath which has been ongoing for the past 3 days prior to come to the emergency room. Patient has been having some cough and shortness of breath. According to patient's , patient has also been having a fever of about 102.2 F. Upon arrival of EMS patient was found to be tachypneic with O2 saturation of 76% on room air which later improved to 88% on nonrebreather. Work-up in the emergency room , chest x-ray shows bilateral interstitial pulmonary edema with bilateral pleural effusions.. Bibasilar opacities which favors atelectasis. Lab reveals leukocytosis of 29. Hemoglobin of 6.1. Patient received blood transfusion and also checked for COVID-19. Patient Ivy virus test reported negative. Patient intubated and placed on mechanical ventilation. Patient transfered to ICU. Patient undergone thoracentesis and chest tube placement. Patient still on mechanical ventilation. Patient transfered to [facility]. Patient Became restless, developed increased work of breathing. Patient placed back on mechanical ventilation. Patient awake , anxious. On assist control mechanical ventilation, rate 10, Tidal volume 400, FIO2 35%, PEEP 6 and o2 saturation running 100%. Patient afebrile. No leukocytosis.Blood pressure 92/43, Pulse 61 , respirations 15 Patients recent HGB 8.4 01/19/22 Chest xray 12/11/21 reported Diffuse bilateral pulmonary opacities most significant in the left lung and right upper lung .No pneumothorax. Chest xray done 01/01/22 reported Worsening bilateral pulmonary opacities and effusions Chest xray 01/05/22 reported Diffuse bilateral pleuroparenchymal opacities, right greater than left, are similar to the prior exam. No pneumothorax. Patient undergone thoracentesis under Ultrasound guidance. Repeat chest xray post thoracentesis 01/06/22 reported Near complete evacuation of the right pleural effusion. No pneumothorax. Pleural fluid cell count wbc 273, RBC 45 Pleural fluid chemistry Protein less than 3, [id number], Glucose 96. Pleural fluid is transudate. Repeat chest xray 01/16/22 reported Diffuse bilateral pulmonary opacities and effusions. Right PICC line tip overlies distal SVC. Small right chest tube is noted without large pneumothorax Chest xray done 01/19/22 reported stable diffuse bilateral interstitial infiltrates and small effusions. Chest xray 01/21/22 reported Mildly improved pulmonary edema and bilateral pleural effusions. No pneumothorax. Patient is on Vancomycin, Prevacid and Sucralfate and lasix. Recommend SCDs. Patient is on tube feeding. I spent critical care time of 33 minutes, reviewing the chart, examine the patient, review lab results, chest xray and talk to respiratory therapy and nursing staff and work out plan of treatment in this critically ill patient. - Patient Problems (1) Acute respiratory failure with hypoxia Current Visit: Yes Status: Acute Plan to address problem: On assist control mechanical ventilation, rate 10, Tidal volume 400, FIO2 35%, PEEP 6 and o2 saturation running 100%. Continue Prevacid. SCDs. (2) Bilateral pneumonia Current Visit: Yes Status: Acute Plan to address problem: Patient is on vancomycin. (3) Occult blood positive stool Current Visit: Yes Status: Acute Plan to address problem: Management as per gastroenterology. (4) Acute anemia Current Visit: Yes Status: Acute Plan to address problem: Patient received blood transfusion. HGB 8.4 on 01/19/22. (5) Suspected COVID-19 virus infection Current Visit: Yes Status: Acute Plan to address problem: Ivy virus PCR negative. (6) Pleural effusion Current Visit: Yes Status: Acute Plan to address problem: Patient unergone right thoracentesis under ultrasound guidance. Post thoracentesis chest xray reported Near complete evacuation of the right pleural effusion. No pneumothorax. Pleural fluid cell count wbc 273, RBC 45 Pleural fluid chemistry Protein less than 3, [id number], Glucose 96. Pleural fluid is transudate. Subjective Date of service: 01/23/22 Principal diagnosis: Septic shock; AHRF; Anemia; Pneumonia; pleural effusion; HFrEF; Pulm HTN Interval history: 81-year-old female with known history of diabetes mellitus, hypertension and arthritis brought to the emergency room via EMS for shortness of breath which has been ongoing for the past 3 days prior to come to the emergency room. Patient has been having some cough and shortness of breath. According to patient's , patient has also been having a fever of about 102.2 F. Upon arrival of EMS patient was found to be tachypneic with O2 saturation of 76% on room air which later improved to 88% on nonrebreather. Work-up in the emergency room , chest x-ray shows bilateral interstitial pulmonary edema with bilateral pleural effusions.. Bibasilar opacities which favors atelectasis. Lab reveals leukocytosis of 29. Hemoglobin of 6.1. Patient received blood transfusion and also checked for COVID-19. Patient Ivy virus test reported negative. Patient intubated and placed on mechanical ventilation. Patient transfered to ICU. Patient undergone thoracentesis and chest tube placement. Patient still on mechanical ventilation. Patient transfered to [facility]. Patient Became restless, developed increased work of breathing. Patient placed back on mechanical ventilation. Patient awake , anxious. On assist control mechanical ventilation, rate 10, Tidal volume 400, FIO2 35%, PEEP 6 and o2 saturation running 100%. Patient afebrile. No leukocytosis.Blood pressure 92/43, Pulse 61 , respirations 15 Patients recent HGB 8.4 01/19/22 Chest xray 12/11/21 reported Diffuse bilateral pulmonary opacities most significant in the left lung and right upper lung .No pneumothorax. Chest xray done 01/01/22 reported Worsening bilateral pulmonary opacities and effusions Chest xray 01/05/22 reported Diffuse bilateral pleuroparenchymal opacities, right greater than left, are similar to the prior exam. No pneumothorax. Patient undergone thoracentesis under Ultrasound guidance. Repeat chest xray post thoracentesis 01/06/22 reported Near complete evacuation of the right pleural effusion. No pneumothorax. Pleural fluid cell count wbc 273, RBC 45 Pleural fluid chemistry Protein less than 3, [id number], Glucose 96. Pleural fluid is transudate. Repeat chest xray 01/16/22 reported Diffuse bilateral pulmonary opacities and effusions. Right PICC line tip overlies distal SVC. Small right chest tube is noted without large pneumothorax Chest xray done 01/19/22 reported stable diffuse bilateral interstitial infiltrates and small effusions. Chest xray 01/21/22 reported Mildly improved pulmonary edema and bilateral pleural effusions. No pneumothorax. Patient is on Vancomycin, Prevacid and Sucralfate and lasix. Recommend SCDs. Patient is on tube feeding. Objective Vital Signs - 12hr 01/23/22 01/23/22 01/23/22 06:00 07:00 07:26 Temperature 97.5 F L Pulse Rate 70 66 Pulse Rate [ From Monitor] Respiratory 26 H 21 Rate Blood Pressure 114/52 126/54 O2 Sat by Pulse 93 99 Oximetry O2 Sat by Pulse Oximetry [ Assessment] 01/23/22 01/23/22 01/23/22 08:00 08:40 09:00 Temperature 98.7 F Pulse Rate 67 68 Pulse Rate [ 64 From Monitor] Respiratory 26 H 20 Rate Blood Pressure 135/56 135/56 O2 Sat by Pulse 98 96 98 Oximetry O2 Sat by Pulse Oximetry [ Assessment] 01/23/22 01/23/22 01/23/22 10:00 10:50 11:00 Temperature Pulse Rate 80 87 94 H Pulse Rate [ From Monitor] Respiratory 21 15 Rate Blood Pressure 135/63 142/65 142/65 O2 Sat by Pulse 95 90 Oximetry O2 Sat by Pulse Oximetry [ Assessment] 01/23/22 01/23/22 01/23/22 12:00 12:15 13:00 Temperature 98.7 F Pulse Rate 102 H 112 H 88 Pulse Rate [ 62 From Monitor] Respiratory 17 11 L Rate Blood Pressure 163/78 174/60 174/60 O2 Sat by Pulse 92 95 94 Oximetry O2 Sat by Pulse Oximetry [ Assessment] 01/23/22 01/23/22 01/23/22 14:00 15:00 15:30 Temperature Pulse Rate 73 65 Pulse Rate [ From Monitor] Respiratory 13 15 Rate Blood Pressure 92/30 85/32 O2 Sat by Pulse 94 Oximetry O2 Sat by Pulse 96 Oximetry [ Assessment] 01/23/22 01/23/22 15:54 16:00 Temperature Pulse Rate 88 62 Pulse Rate [ From Monitor] Respiratory 13 Rate Blood Pressure 174/60 96/46 O2 Sat by Pulse 94 93 Oximetry O2 Sat by Pulse Oximetry [ Assessment] Constitutional: no acute distress, alert, asleep, other (Agitating at times.) Eyes: non-icteric ENT: oropharynx moist, other (+ Midline tracheostomy with minimal secretions) Neck: supple, no lymphadenopathy, no JVD Effort: mildly labored Ascultation: Bilateral: diminished breath sounds, rhonchi Percussion: Right: not dull, Left: dull (bases) Cardiovascular: regular rate and rhythm, other (S1,S2) Gastrointestinal: normoactive bowel sounds, soft, non-tender, non-distended (protuberant) Integumentary: normal Extremities: no cyanosis, pink and warm, pulses normal, edema (upper etremities), anasarca Neurologic: non-focal exam (grossly), pupils equal and round, CN II-XII normal Psychiatric: mood appropriate, anxious CBC and BMP: 01/19/22 04:50 01/19/22 04:50 ABG, PT/INR, D-dimer: ABG ABG pH 7.310 pH Units (7.350-7.450) L 01/23/22 11:50 ABG pCO2 56.8 mm Hg 01/23/22 11:50 ABG pO2 43.9 mm Hg (80.0-90.0) L 01/23/22 11:50 ABG O2 Saturation 70.8 % (95.0-99.0) L 01/23/22 11:50 PT/INR, D-dimer PT 16.9 Sec. (12.2-14.9) H 01/06/22 04:06 INR 1.23 (0.87-1.13) H 01/06/22 04:06 D-Dimer 2655.00 ng/mlDDU (0-234) H 11/11/21 04:28 Abnormal lab findings: Abnormal Labs 11/03/21 11/03/21 11/03/21 22:32 22:32 22:32 WBC 29.3 H RBC 2.93 L Hgb 6.1 L Hct 21.9 L MCV 75 L MCH 21 L MCHC 28 L RDW 19.7 H Plt Count Seg Neuts % (Manual) 97.0 H Lymphocytes % (Manual) 3.0 L Seg Neutrophils # Man 28.4 H Lymphocytes # (Manual) 0.9 L Monocytes # (Manual) PT 18.6 H INR 1.40 H D-Dimer ABG pH ABG pO2 ABG HCO3 ABG O2 Saturation ABG Base Excess ABG Hemoglobin Oxyhemoglobin Sodium Potassium Chloride Carbon Dioxide 20 L BUN 33 H Creatinine Glucose 119 H POC Glucose Lactic Acid Calcium 8.3 L Phosphorus Magnesium AST ALT Alkaline Phosphatase Lactate Dehydrogenase Troponin T 0.035 H C-Reactive Protein NT-Pro-B Natriuret Pep Total Protein Albumin LDL Cholesterol Direct 34 L Vitamin B12 Urine WBC (Auto) Fluid Glucose Fluid Total Protein Vancomycin Trough Crossmatch 11/03/21 11/03/21 11/03/21 22:32 22:32 23:57 WBC RBC Hgb Hct MCV MCH MCHC RDW Plt Count Seg Neuts % (Manual) Lymphocytes % (Manual) Seg Neutrophils # Man Lymphocytes # (Manual) Monocytes # (Manual) PT INR D-Dimer ABG pH ABG pO2 ABG HCO3 ABG O2 Saturation ABG Base Excess ABG Hemoglobin Oxyhemoglobin Sodium Potassium Chloride Carbon Dioxide BUN Creatinine Glucose POC Glucose Lactic Acid 3.70 H* Calcium Phosphorus Magnesium AST ALT Alkaline Phosphatase 139 H Lactate Dehydrogenase Troponin T C-Reactive Protein NT-Pro-B Natriuret Pep 7895 H Total Protein Albumin 3.5 L LDL Cholesterol Direct Vitamin B12 Urine WBC (Auto) Fluid Glucose Fluid Total Protein Vancomycin Trough Crossmatch See Detail 11/04/21 11/04/21 11/05/21 00:59 13:58 00:51 WBC 27.9 H RBC 3.28 L Hgb 7.3 L Hct 25.5 L MCV 78 L MCH 22 L MCHC 29 L RDW 19.1 H Plt Count Seg Neuts % (Manual) 96.0 H Lymphocytes % (Manual) 2.0 L Seg Neutrophils # Man 26.8 H Lymphocytes # (Manual) 0.6 L Monocytes # (Manual) PT INR D-Dimer ABG pH ABG pO2 ABG HCO3 ABG O2 Saturation ABG Base Excess ABG Hemoglobin Oxyhemoglobin Sodium Potassium Chloride Carbon Dioxide BUN Creatinine Glucose POC Glucose Lactic Acid Calcium Phosphorus Magnesium AST ALT Alkaline Phosphatase Lactate Dehydrogenase Troponin T 0.051 H D 0.032 H D C-Reactive Protein NT-Pro-B Natriuret Pep Total Protein Albumin LDL Cholesterol Direct Vitamin B12 Urine WBC (Auto) Fluid Glucose Fluid Total Protein Vancomycin Trough Crossmatch 11/05/21 11/05/21 11/05/21 06:11 06:11 06:11 WBC 31.8 H RBC 3.57 L Hgb 8.0 L Hct 27.7 L MCV 78 L MCH 22 L MCHC 29 L RDW 19.2 H Plt Count Seg Neuts % (Manual) 91.0 H Lymphocytes % (Manual) 4.5 L Seg Neutrophils # Man 28.9 H Lymphocytes # (Manual) Monocytes # (Manual) 1.1 H PT INR D-Dimer 1494.53 H ABG pH ABG pO2 ABG HCO3 ABG O2 Saturation ABG Base Excess ABG Hemoglobin Oxyhemoglobin Sodium Potassium Chloride Carbon Dioxide 19 L BUN 42 H Creatinine Glucose 115 H POC Glucose Lactic Acid Calcium Phosphorus Magnesium AST 43 H ALT Alkaline Phosphatase Lactate Dehydrogenase 187 H Troponin T C-Reactive Protein 22.20 H NT-Pro-B Natriuret Pep Total Protein 6.0 L Albumin 3.2 L LDL Cholesterol Direct Vitamin B12 Urine WBC (Auto) Fluid Glucose Fluid Total Protein Vancomycin Trough Crossmatch 11/05/21 11/05/21 11/06/21 06:11 12:15 00:30 WBC RBC Hgb Hct MCV MCH MCHC RDW Plt Count Seg Neuts % (Manual) Lymphocytes % (Manual) Seg Neutrophils # Man Lymphocytes # (Manual) Monocytes # (Manual) PT INR D-Dimer ABG pH ABG pO2 ABG HCO3 ABG O2 Saturation ABG Base Excess ABG Hemoglobin Oxyhemoglobin Sodium Potassium Chloride Carbon Dioxide BUN Creatinine Glucose POC Glucose 113 H 69 L Lactic Acid Calcium Phosphorus Magnesium AST ALT Alkaline Phosphatase Lactate Dehydrogenase Troponin T 0.033 H C-Reactive Protein NT-Pro-B Natriuret Pep Total Protein Albumin LDL Cholesterol Direct Vitamin B12 Urine WBC (Auto) Fluid Glucose Fluid Total Protein Vancomycin Trough Crossmatch 11/06/21 11/06/21 11/06/21 05:50 15:50 15:50 WBC 25.5 H RBC 3.62 L Hgb 8.0 L Hct 27.5 L MCV 76 L MCH 22 L MCHC 29 L RDW 19.6 H Plt Count Seg Neuts % (Manual) 92.0 H Lymphocytes % (Manual) 5.0 L Seg Neutrophils # Man 23.5 H Lymphocytes # (Manual) Monocytes # (Manual) PT INR D-Dimer ABG pH 7.305 L ABG pO2 ABG HCO3 15.8 L ABG O2 Saturation ABG Base Excess -9.6 L ABG Hemoglobin 8.6 L Oxyhemoglobin 94.6 L Sodium Potassium Chloride 113.9 H Carbon Dioxide 17 L BUN 56 H Creatinine Glucose 114 H POC Glucose Lactic Acid Calcium 7.9 L Phosphorus Magnesium AST 1410 H ALT 934 H Alkaline Phosphatase 142 H Lactate Dehydrogenase Troponin T C-Reactive Protein NT-Pro-B Natriuret Pep Total Protein 5.0 L Albumin 2.6 L LDL Cholesterol Direct Vitamin B12 Urine WBC (Auto) Fluid Glucose Fluid Total Protein Vancomycin Trough Crossmatch 11/07/21 11/07/21 11/07/21 03:30 04:50 08:07 WBC RBC Hgb Hct MCV MCH MCHC RDW Plt Count Seg Neuts % (Manual) Lymphocytes % (Manual) Seg Neutrophils # Man Lymphocytes # (Manual) Monocytes # (Manual) PT INR D-Dimer ABG pH ABG pO2 296.9 H ABG HCO3 18.1 L ABG O2 Saturation 99.5 H ABG Base Excess -5.9 L ABG Hemoglobin 7.6 L Oxyhemoglobin Sodium Potassium Chloride Carbon Dioxide BUN Creatinine Glucose POC Glucose 106 H 108 H Lactic Acid Calcium Phosphorus Magnesium AST ALT Alkaline Phosphatase Lactate Dehydrogenase Troponin T C-Reactive Protein NT-Pro-B Natriuret Pep Total Protein Albumin LDL Cholesterol Direct Vitamin B12 Urine WBC (Auto) Fluid Glucose Fluid Total Protein Vancomycin Trough Crossmatch 11/08/21 11/08/21 11/08/21 03:10 18:05 23:43 WBC RBC Hgb Hct MCV MCH MCHC RDW Plt Count Seg Neuts % (Manual) Lymphocytes % (Manual) Seg Neutrophils # Man Lymphocytes # (Manual) Monocytes # (Manual) PT INR D-Dimer ABG pH ABG pO2 127.4 H ABG HCO3 ABG O2 Saturation ABG Base Excess -3.4 L ABG Hemoglobin 7.4 L Oxyhemoglobin Sodium Potassium Chloride Carbon Dioxide BUN Creatinine Glucose POC Glucose 113 H 141 H Lactic Acid Calcium Phosphorus Magnesium AST ALT Alkaline Phosphatase Lactate Dehydrogenase Troponin T C-Reactive Protein NT-Pro-B Natriuret Pep Total Protein Albumin LDL Cholesterol Direct Vitamin B12 Urine WBC (Auto) Fluid Glucose Fluid Total Protein Vancomycin Trough Crossmatch 11/08/21 11/08/21 11/09/21 Unknown Unknown 02:00 WBC 14.5 H RBC 3.35 L Hgb 7.5 L 8.1 L Hct 25.4 L 27.6 L MCV 76 L 76 L MCH 23 L 22 L MCHC RDW 19.9 H 19.9 H Plt Count Seg Neuts % (Manual) Lymphocytes % (Manual) Seg Neutrophils # Man Lymphocytes # (Manual) Monocytes # (Manual) PT INR D-Dimer ABG pH ABG pO2 ABG HCO3 ABG O2 Saturation ABG Base Excess ABG Hemoglobin Oxyhemoglobin Sodium 154 H D Potassium 3.3 L Chloride 120.7 H Carbon Dioxide 20 L BUN 38 H Creatinine Glucose POC Glucose Lactic Acid Calcium 8.3 L Phosphorus Magnesium AST ALT Alkaline Phosphatase Lactate Dehydrogenase Troponin T C-Reactive Protein NT-Pro-B Natriuret Pep Total Protein Albumin LDL Cholesterol Direct Vitamin B12 Urine WBC (Auto) Fluid Glucose Fluid Total Protein Vancomycin Trough Crossmatch 11/09/21 11/09/21 11/09/21 02:00 02:31 05:12 WBC RBC Hgb Hct MCV MCH MCHC RDW Plt Count Seg Neuts % (Manual) Lymphocytes % (Manual) Seg Neutrophils # Man Lymphocytes # (Manual) Monocytes # (Manual) PT INR D-Dimer ABG pH 7.479 H ABG pO2 121.3 H ABG HCO3 ABG O2 Saturation ABG Base Excess ABG Hemoglobin 7.3 L Oxyhemoglobin Sodium Potassium Chloride 112.5 H Carbon Dioxide BUN 33 H Creatinine Glucose 161 H POC Glucose 135 H Lactic Acid Calcium Phosphorus Magnesium AST 251 H ALT 481 H Alkaline Phosphatase Lactate Dehydrogenase Troponin T C-Reactive Protein NT-Pro-B Natriuret Pep Total Protein 5.0 L Albumin 2.8 L LDL Cholesterol Direct Vitamin B12 Urine WBC (Auto) Fluid Glucose Fluid Total Protein Vancomycin Trough Crossmatch 11/09/21 11/09/21 11/09/21 11:33 16:32 23:28 WBC RBC Hgb Hct MCV MCH MCHC RDW Plt Count Seg Neuts % (Manual) Lymphocytes % (Manual) Seg Neutrophils # Man Lymphocytes # (Manual) Monocytes # (Manual) PT INR D-Dimer ABG pH ABG pO2 ABG HCO3 ABG O2 Saturation ABG Base Excess ABG Hemoglobin Oxyhemoglobin Sodium Potassium Chloride Carbon Dioxide BUN Creatinine Glucose POC Glucose 132 H 133 H 143 H Lactic Acid Calcium Phosphorus Magnesium AST ALT Alkaline Phosphatase Lactate Dehydrogenase Troponin T C-Reactive Protein NT-Pro-B Natriuret Pep Total Protein Albumin LDL Cholesterol Direct Vitamin B12 Urine WBC (Auto) Fluid Glucose Fluid Total Protein Vancomycin Trough Crossmatch 11/10/21 11/10/21 11/10/21 04:00 04:00 05:35 WBC 16.0 H RBC 3.61 L Hgb 8.0 L Hct 27.1 L MCV 75 L MCH 22 L MCHC RDW 20.4 H Plt Count Seg Neuts % (Manual) Lymphocytes % (Manual) Seg Neutrophils # Man Lymphocytes # (Manual) Monocytes # (Manual) PT INR D-Dimer ABG pH ABG pO2 ABG HCO3 ABG O2 Saturation ABG Base Excess ABG Hemoglobin Oxyhemoglobin Sodium 149 H Potassium Chloride 114.1 H Carbon Dioxide BUN 31 H Creatinine Glucose 148 H POC Glucose 132 H Lactic Acid Calcium 8.2 L Phosphorus Magnesium AST ALT Alkaline Phosphatase Lactate Dehydrogenase Troponin T C-Reactive Protein NT-Pro-B Natriuret Pep Total Protein Albumin LDL Cholesterol Direct Vitamin B12 Urine WBC (Auto) Fluid Glucose Fluid Total Protein Vancomycin Trough Crossmatch 11/10/21 11/10/21 11/10/21 11:31 14:08 15:35 WBC RBC Hgb Hct MCV MCH MCHC RDW Plt Count Seg Neuts % (Manual) Lymphocytes % (Manual) Seg Neutrophils # Man Lymphocytes # (Manual) Monocytes # (Manual) PT INR D-Dimer ABG pH ABG pO2 126.6 H ABG HCO3 ABG O2 Saturation ABG Base Excess ABG Hemoglobin 7.4 L Oxyhemoglobin Sodium Potassium Chloride Carbon Dioxide BUN Creatinine Glucose POC Glucose 147 H Lactic Acid Calcium Phosphorus Magnesium AST ALT Alkaline Phosphatase Lactate Dehydrogenase Troponin T C-Reactive Protein NT-Pro-B Natriuret Pep Total Protein Albumin LDL Cholesterol Direct Vitamin B12 1823 H Urine WBC (Auto) Fluid Glucose Fluid Total Protein Vancomycin Trough Crossmatch 11/10/21 11/11/21 11/11/21 17:53 00:55 04:28 WBC RBC Hgb Hct MCV MCH MCHC RDW Plt Count Seg Neuts % (Manual) Lymphocytes % (Manual) Seg Neutrophils # Man Lymphocytes # (Manual) Monocytes # (Manual) PT INR D-Dimer ABG pH ABG pO2 ABG HCO3 ABG O2 Saturation ABG Base Excess ABG Hemoglobin Oxyhemoglobin Sodium 149 H Potassium Chloride 112.2 H Carbon Dioxide BUN 34 H Creatinine Glucose 148 H POC Glucose 140 H 145 H Lactic Acid Calcium 7.9 L Phosphorus Magnesium AST 53 H ALT 203 H Alkaline Phosphatase Lactate Dehydrogenase Troponin T C-Reactive Protein NT-Pro-B Natriuret Pep Total Protein 4.9 L Albumin 2.6 L LDL Cholesterol Direct Vitamin B12 Urine WBC (Auto) Fluid Glucose Fluid Total Protein Vancomycin Trough Crossmatch 11/11/21 11/11/21 11/11/21 04:28 04:28 05:28 WBC 20.9 H RBC 3.47 L Hgb 7.5 L Hct 26.0 L MCV 75 L MCH 22 L MCHC 29 L RDW 21.6 H Plt Count 132 L Seg Neuts % (Manual) Lymphocytes % (Manual) Seg Neutrophils # Man Lymphocytes # (Manual) Monocytes # (Manual) PT INR D-Dimer 2655.00 H ABG pH ABG pO2 ABG HCO3 ABG O2 Saturation ABG Base Excess ABG Hemoglobin Oxyhemoglobin Sodium Potassium Chloride Carbon Dioxide BUN Creatinine Glucose POC Glucose 154 H Lactic Acid Calcium Phosphorus Magnesium AST ALT Alkaline Phosphatase Lactate Dehydrogenase Troponin T C-Reactive Protein NT-Pro-B Natriuret Pep Total Protein Albumin LDL Cholesterol Direct Vitamin B12 Urine WBC (Auto) Fluid Glucose Fluid Total Protein Vancomycin Trough Crossmatch 11/11/21 11/11/21 11/12/21 12:38 18:13 00:14 WBC RBC Hgb Hct MCV MCH MCHC RDW Plt Count Seg Neuts % (Manual) Lymphocytes % (Manual) Seg Neutrophils # Man Lymphocytes # (Manual) Monocytes # (Manual) PT INR D-Dimer ABG pH ABG pO2 ABG HCO3 ABG O2 Saturation ABG Base Excess ABG Hemoglobin Oxyhemoglobin Sodium Potassium Chloride Carbon Dioxide BUN Creatinine Glucose POC Glucose 137 H 108 H 137 H Lactic Acid Calcium Phosphorus Magnesium AST ALT Alkaline Phosphatase Lactate Dehydrogenase Troponin T C-Reactive Protein NT-Pro-B Natriuret Pep Total Protein Albumin LDL Cholesterol Direct Vitamin B12 Urine WBC (Auto) Fluid Glucose Fluid Total Protein Vancomycin Trough Crossmatch 11/12/21 11/12/21 11/12/21 05:40 06:24 11:12 WBC RBC Hgb Hct MCV MCH MCHC RDW Plt Count Seg Neuts % (Manual) Lymphocytes % (Manual) Seg Neutrophils # Man Lymphocytes # (Manual) Monocytes # (Manual) PT INR D-Dimer ABG pH 7.586 H ABG pO2 150.6 H ABG HCO3 27.2 H ABG O2 Saturation 99.1 H ABG Base Excess 5.2 H ABG Hemoglobin 7.5 L Oxyhemoglobin Sodium Potassium Chloride Carbon Dioxide BUN Creatinine Glucose POC Glucose 132 H 140 H Lactic Acid Calcium Phosphorus Magnesium AST ALT Alkaline Phosphatase Lactate Dehydrogenase Troponin T C-Reactive Protein NT-Pro-B Natriuret Pep Total Protein Albumin LDL Cholesterol Direct Vitamin B12 Urine WBC (Auto) Fluid Glucose Fluid Total Protein Vancomycin Trough Crossmatch 11/12/21 11/12/21 11/12/21 14:50 14:50 17:13 WBC 19.8 H RBC 3.27 L Hgb 7.1 L Hct 24.5 L MCV 75 L MCH 22 L MCHC 29 L RDW 22.3 H Plt Count Seg Neuts % (Manual) Lymphocytes % (Manual) Seg Neutrophils # Man Lymphocytes # (Manual) Monocytes # (Manual) PT INR D-Dimer ABG pH ABG pO2 ABG HCO3 ABG O2 Saturation ABG Base Excess ABG Hemoglobin Oxyhemoglobin Sodium 150 H Potassium 3.3 L Chloride 112.0 H Carbon Dioxide BUN 40 H Creatinine Glucose 151 H POC Glucose 121 H Lactic Acid Calcium 7.4 L Phosphorus 1.70 L Magnesium 1.40 L AST ALT Alkaline Phosphatase Lactate Dehydrogenase Troponin T C-Reactive Protein NT-Pro-B Natriuret Pep Total Protein Albumin LDL Cholesterol Direct Vitamin B12 Urine WBC (Auto) Fluid Glucose Fluid Total Protein Vancomycin Trough Crossmatch 11/12/21 11/13/21 11/13/21 23:19 05:34 06:30 WBC RBC Hgb Hct MCV MCH MCHC RDW Plt Count Seg Neuts % (Manual) Lymphocytes % (Manual) Seg Neutrophils # Man Lymphocytes # (Manual) Monocytes # (Manual) PT INR D-Dimer ABG pH ABG pO2 ABG HCO3 ABG O2 Saturation ABG Base Excess ABG Hemoglobin Oxyhemoglobin Sodium 149 H Potassium Chloride 60.0 L Carbon Dioxide BUN 40 H Creatinine Glucose 146 H POC Glucose 113 H 132 H Lactic Acid Calcium 7.3 L Phosphorus Magnesium 2.40 H AST ALT 72 H Alkaline Phosphatase Lactate Dehydrogenase Troponin T C-Reactive Protein NT-Pro-B Natriuret Pep Total Protein 5.2 L Albumin 2.2 L LDL Cholesterol Direct Vitamin B12 Urine WBC (Auto) Fluid Glucose Fluid Total Protein Vancomycin Trough Crossmatch 11/13/21 11/13/21 11/13/21 06:30 08:30 11:19 WBC 21.2 H RBC 3.12 L Hgb 6.8 L Hct 23.2 L MCV 74 L MCH 22 L MCHC 29 L RDW 22.2 H Plt Count 135 L Seg Neuts % (Manual) Lymphocytes % (Manual) Seg Neutrophils # Man Lymphocytes # (Manual) Monocytes # (Manual) PT INR D-Dimer ABG pH ABG pO2 ABG HCO3 ABG O2 Saturation ABG Base Excess ABG Hemoglobin Oxyhemoglobin Sodium Potassium Chloride Carbon Dioxide BUN Creatinine Glucose POC Glucose 136 H Lactic Acid Calcium Phosphorus Magnesium AST ALT Alkaline Phosphatase Lactate Dehydrogenase Troponin T C-Reactive Protein NT-Pro-B Natriuret Pep Total Protein Albumin LDL Cholesterol Direct Vitamin B12 Urine WBC (Auto) Fluid Glucose Fluid Total Protein Vancomycin Trough Crossmatch See Detail 11/13/21 11/14/21 11/14/21 18:21 00:01 04:46 WBC 20.0 H RBC 3.41 L Hgb 7.9 L Hct 26.8 L MCV MCH 23 L MCHC 29 L RDW 24.0 H Plt Count Seg Neuts % (Manual) Lymphocytes % (Manual) Seg Neutrophils # Man Lymphocytes # (Manual) Monocytes # (Manual) PT INR D-Dimer ABG pH ABG pO2 ABG HCO3 ABG O2 Saturation ABG Base Excess ABG Hemoglobin Oxyhemoglobin Sodium Potassium Chloride Carbon Dioxide BUN Creatinine Glucose POC Glucose 149 H 141 H Lactic Acid Calcium Phosphorus Magnesium AST ALT Alkaline Phosphatase Lactate Dehydrogenase Troponin T C-Reactive Protein NT-Pro-B Natriuret Pep Total Protein Albumin LDL Cholesterol Direct Vitamin B12 Urine WBC (Auto) Fluid Glucose Fluid Total Protein Vancomycin Trough Crossmatch 11/14/21 11/14/21 11/14/21 04:46 05:10 11:10 WBC RBC Hgb Hct MCV MCH MCHC RDW Plt Count Seg Neuts % (Manual) Lymphocytes % (Manual) Seg Neutrophils # Man Lymphocytes # (Manual) Monocytes # (Manual) PT INR D-Dimer ABG pH ABG pO2 ABG HCO3 ABG O2 Saturation ABG Base Excess ABG Hemoglobin Oxyhemoglobin Sodium 148 H Potassium Chloride 113.1 H Carbon Dioxide BUN 43 H Creatinine Glucose 140 H POC Glucose 132 H 133 H Lactic Acid Calcium 7.5 L Phosphorus Magnesium AST ALT Alkaline Phosphatase Lactate Dehydrogenase Troponin T C-Reactive Protein NT-Pro-B Natriuret Pep Total Protein Albumin LDL Cholesterol Direct Vitamin B12 Urine WBC (Auto) Fluid Glucose Fluid Total Protein Vancomycin Trough Crossmatch 11/14/21 11/14/21 11/14/21 16:14 17:48 23:23 WBC RBC Hgb Hct MCV MCH MCHC RDW Plt Count Seg Neuts % (Manual) Lymphocytes % (Manual) Seg Neutrophils # Man Lymphocytes # (Manual) Monocytes # (Manual) PT INR D-Dimer ABG pH ABG pO2 ABG HCO3 28.0 H ABG O2 Saturation ABG Base Excess 3.1 H ABG Hemoglobin 5.8 L Oxyhemoglobin 94.8 L Sodium Potassium Chloride Carbon Dioxide BUN Creatinine Glucose POC Glucose 130 H 136 H Lactic Acid Calcium Phosphorus Magnesium AST ALT Alkaline Phosphatase Lactate Dehydrogenase Troponin T C-Reactive Protein NT-Pro-B Natriuret Pep Total Protein Albumin LDL Cholesterol Direct Vitamin B12 Urine WBC (Auto) Fluid Glucose Fluid Total Protein Vancomycin Trough Crossmatch 11/15/21 11/15/21 11/15/21 05:20 05:50 05:50 WBC 19.9 H RBC 3.50 L Hgb 8.2 L Hct 27.9 L MCV MCH 23 L MCHC 29 L RDW 24.9 H Plt Count Seg Neuts % (Manual) Lymphocytes % (Manual) Seg Neutrophils # Man Lymphocytes # (Manual) Monocytes # (Manual) PT INR D-Dimer ABG pH ABG pO2 ABG HCO3 ABG O2 Saturation ABG Base Excess ABG Hemoglobin Oxyhemoglobin Sodium 149 H Potassium Chloride 112.0 H Carbon Dioxide BUN 48 H Creatinine Glucose 152 H POC Glucose 137 H Lactic Acid Calcium 7.9 L Phosphorus Magnesium AST ALT Alkaline Phosphatase Lactate Dehydrogenase Troponin T C-Reactive Protein NT-Pro-B Natriuret Pep Total Protein Albumin LDL Cholesterol Direct Vitamin B12 Urine WBC (Auto) Fluid Glucose Fluid Total Protein Vancomycin Trough Crossmatch 11/15/21 11/15/21 11/15/21 12:12 17:07 23:24 WBC RBC Hgb Hct MCV MCH MCHC RDW Plt Count Seg Neuts % (Manual) Lymphocytes % (Manual) Seg Neutrophils # Man Lymphocytes # (Manual) Monocytes # (Manual) PT INR D-Dimer ABG pH ABG pO2 ABG HCO3 ABG O2 Saturation ABG Base Excess ABG Hemoglobin Oxyhemoglobin Sodium Potassium Chloride Carbon Dioxide BUN Creatinine Glucose POC Glucose 114 H 135 H 123 H Lactic Acid Calcium Phosphorus Magnesium AST ALT Alkaline Phosphatase Lactate Dehydrogenase Troponin T C-Reactive Protein NT-Pro-B Natriuret Pep Total Protein Albumin LDL Cholesterol Direct Vitamin B12 Urine WBC (Auto) Fluid Glucose Fluid Total Protein Vancomycin Trough Crossmatch 11/16/21 11/16/21 11/16/21 05:21 10:00 10:00 WBC 21.7 H RBC 2.57 L Hgb 6.0 L Hct 20.2 L D MCV MCH 24 L MCHC RDW 26.3 H Plt Count Seg Neuts % (Manual) Lymphocytes % (Manual) Seg Neutrophils # Man Lymphocytes # (Manual) Monocytes # (Manual) PT INR D-Dimer ABG pH ABG pO2 ABG HCO3 ABG O2 Saturation ABG Base Excess ABG Hemoglobin Oxyhemoglobin Sodium 153 H Potassium Chloride 114.9 H Carbon Dioxide BUN 74 H Creatinine Glucose 155 H POC Glucose 127 H Lactic Acid Calcium 8.1 L Phosphorus Magnesium AST ALT Alkaline Phosphatase Lactate Dehydrogenase Troponin T C-Reactive Protein NT-Pro-B Natriuret Pep Total Protein Albumin LDL Cholesterol Direct Vitamin B12 Urine WBC (Auto) Fluid Glucose Fluid Total Protein Vancomycin Trough Crossmatch 11/16/21 11/16/21 11/16/21 11:34 14:00 15:25 WBC 17.2 H RBC 2.08 L Hgb 4.7 L* Hct 16.2 L* MCV 78 L MCH 23 L MCHC 29 L RDW 26.0 H Plt Count Seg Neuts % (Manual) 87.0 H Lymphocytes % (Manual) 8.0 L Seg Neutrophils # Man 15.0 H Lymphocytes # (Manual) Monocytes # (Manual) 0.9 H PT INR D-Dimer ABG pH ABG pO2 ABG HCO3 ABG O2 Saturation ABG Base Excess ABG Hemoglobin Oxyhemoglobin Sodium Potassium Chloride Carbon Dioxide BUN Creatinine Glucose POC Glucose 131 H Lactic Acid Calcium Phosphorus Magnesium AST ALT Alkaline Phosphatase Lactate Dehydrogenase Troponin T C-Reactive Protein NT-Pro-B Natriuret Pep Total Protein Albumin LDL Cholesterol Direct Vitamin B12 Urine WBC (Auto) Fluid Glucose Fluid Total Protein Vancomycin Trough Crossmatch See Detail 11/16/21 11/16/21 11/16/21 15:25 17:21 22:43 WBC RBC Hgb 8.6 L D Hct 27.7 L D MCV MCH MCHC RDW Plt Count Seg Neuts % (Manual) Lymphocytes % (Manual) Seg Neutrophils # Man Lymphocytes # (Manual) Monocytes # (Manual) PT INR D-Dimer ABG pH ABG pO2 ABG HCO3 ABG O2 Saturation ABG Base Excess ABG Hemoglobin Oxyhemoglobin Sodium 148 H Potassium Chloride 113.2 H Carbon Dioxide BUN 84 H Creatinine Glucose 164 H POC Glucose 124 H Lactic Acid Calcium 7.6 L Phosphorus Magnesium AST ALT Alkaline Phosphatase Lactate Dehydrogenase Troponin T C-Reactive Protein NT-Pro-B Natriuret Pep Total Protein Albumin LDL Cholesterol Direct Vitamin B12 Urine WBC (Auto) Fluid Glucose Fluid Total Protein Vancomycin Trough Crossmatch 11/16/21 11/17/21 11/17/21 23:07 05:33 05:56 WBC 25.1 H RBC 3.47 L Hgb 8.7 L Hct 28.5 L MCV MCH 25 L MCHC RDW 22.3 H Plt Count Seg Neuts % (Manual) Lymphocytes % (Manual) Seg Neutrophils # Man Lymphocytes # (Manual) Monocytes # (Manual) PT INR D-Dimer ABG pH ABG pO2 ABG HCO3 ABG O2 Saturation ABG Base Excess ABG Hemoglobin Oxyhemoglobin Sodium Potassium Chloride Carbon Dioxide BUN Creatinine Glucose POC Glucose 128 H 133 H Lactic Acid Calcium Phosphorus Magnesium AST ALT Alkaline Phosphatase Lactate Dehydrogenase Troponin T C-Reactive Protein NT-Pro-B Natriuret Pep Total Protein Albumin LDL Cholesterol Direct Vitamin B12 Urine WBC (Auto) Fluid Glucose Fluid Total Protein Vancomycin Trough Crossmatch 11/17/21 11/17/21 11/17/21 05:56 11:00 11:55 WBC RBC Hgb 8.3 L Hct 26.9 L MCV MCH MCHC RDW Plt Count Seg Neuts % (Manual) Lymphocytes % (Manual) Seg Neutrophils # Man Lymphocytes # (Manual) Monocytes # (Manual) PT INR D-Dimer ABG pH ABG pO2 ABG HCO3 ABG O2 Saturation ABG Base Excess ABG Hemoglobin Oxyhemoglobin Sodium 151 H Potassium Chloride 113.6 H Carbon Dioxide BUN 85 H Creatinine Glucose 132 H POC Glucose 121 H Lactic Acid Calcium 7.8 L Phosphorus Magnesium AST ALT Alkaline Phosphatase Lactate Dehydrogenase Troponin T C-Reactive Protein NT-Pro-B Natriuret Pep Total Protein 5.1 L Albumin 2.2 L LDL Cholesterol Direct Vitamin B12 Urine WBC (Auto) Fluid Glucose Fluid Total Protein Vancomycin Trough Crossmatch 11/17/21 11/17/21 11/18/21 18:04 18:55 00:26 WBC RBC Hgb 7.5 L 7.1 L Hct 24.8 L 23.6 L MCV MCH MCHC RDW Plt Count Seg Neuts % (Manual) Lymphocytes % (Manual) Seg Neutrophils # Man Lymphocytes # (Manual) Monocytes # (Manual) PT INR D-Dimer ABG pH ABG pO2 ABG HCO3 ABG O2 Saturation ABG Base Excess ABG Hemoglobin Oxyhemoglobin Sodium Potassium Chloride Carbon Dioxide BUN Creatinine Glucose POC Glucose 144 H Lactic Acid Calcium Phosphorus Magnesium AST ALT Alkaline Phosphatase Lactate Dehydrogenase Troponin T C-Reactive Protein NT-Pro-B Natriuret Pep Total Protein Albumin LDL Cholesterol Direct Vitamin B12 Urine WBC (Auto) Fluid Glucose Fluid Total Protein Vancomycin Trough Crossmatch 11/18/21 11/18/21 11/18/21 00:43 05:10 05:10 WBC 12.5 H RBC 2.39 L Hgb 6.1 L Hct 20.2 L MCV MCH 25 L MCHC RDW 23.2 H Plt Count Seg Neuts % (Manual) Lymphocytes % (Manual) Seg Neutrophils # Man Lymphocytes # (Manual) Monocytes # (Manual) PT INR D-Dimer ABG pH ABG pO2 ABG HCO3 ABG O2 Saturation ABG Base Excess ABG Hemoglobin Oxyhemoglobin Sodium 131 L D Potassium 2.9 L* D Chloride 97.8 L Carbon Dioxide BUN 58 H Creatinine Glucose 665 H* POC Glucose 139 H Lactic Acid Calcium 7.0 L Phosphorus 2.20 L D Magnesium 1.50 L AST ALT Alkaline Phosphatase Lactate Dehydrogenase Troponin T C-Reactive Protein NT-Pro-B Natriuret Pep Total Protein Albumin LDL Cholesterol Direct Vitamin B12 Urine WBC (Auto) Fluid Glucose Fluid Total Protein Vancomycin Trough Crossmatch 11/18/21 11/18/21 11/18/21 05:23 07:10 10:45 WBC RBC Hgb Hct MCV MCH MCHC RDW Plt Count Seg Neuts % (Manual) Lymphocytes % (Manual) Seg Neutrophils # Man Lymphocytes # (Manual) Monocytes # (Manual) PT INR D-Dimer ABG pH ABG pO2 ABG HCO3 ABG O2 Saturation ABG Base Excess ABG Hemoglobin Oxyhemoglobin Sodium 148 H D Potassium 3.1 L Chloride 111.9 H Carbon Dioxide BUN 63 H Creatinine Glucose 141 H POC Glucose 124 H Lactic Acid Calcium 8.1 L D Phosphorus Magnesium AST ALT Alkaline Phosphatase Lactate Dehydrogenase Troponin T C-Reactive Protein NT-Pro-B Natriuret Pep Total Protein Albumin LDL Cholesterol Direct Vitamin B12 Urine WBC (Auto) Fluid Glucose Fluid Total Protein Vancomycin Trough Crossmatch See Detail 11/18/21 11/19/21 11/19/21 11:57 00:19 04:55 WBC RBC 3.35 L Hgb 9.0 L 8.9 L Hct 28.3 L D 28.1 L MCV MCH 27 L MCHC RDW 20.3 H Plt Count Seg Neuts % (Manual) Lymphocytes % (Manual) Seg Neutrophils # Man Lymphocytes # (Manual) Monocytes # (Manual) PT INR D-Dimer ABG pH ABG pO2 ABG HCO3 ABG O2 Saturation ABG Base Excess ABG Hemoglobin Oxyhemoglobin Sodium Potassium Chloride Carbon Dioxide BUN Creatinine Glucose POC Glucose 119 H Lactic Acid Calcium Phosphorus Magnesium AST ALT Alkaline Phosphatase Lactate Dehydrogenase Troponin T C-Reactive Protein NT-Pro-B Natriuret Pep Total Protein Albumin LDL Cholesterol Direct Vitamin B12 Urine WBC (Auto) Fluid Glucose Fluid Total Protein Vancomycin Trough Crossmatch 11/19/21 11/19/21 11/20/21 04:55 05:42 00:55 WBC RBC Hgb 9.0 L Hct 28.6 L MCV MCH MCHC RDW Plt Count Seg Neuts % (Manual) Lymphocytes % (Manual) Seg Neutrophils # Man Lymphocytes # (Manual) Monocytes # (Manual) PT INR D-Dimer ABG pH ABG pO2 ABG HCO3 ABG O2 Saturation ABG Base Excess ABG Hemoglobin Oxyhemoglobin Sodium Potassium 3.5 L Chloride 108.6 H Carbon Dioxide BUN 47 H Creatinine Glucose 207 H POC Glucose 63 L Lactic Acid Calcium 7.1 L Phosphorus Magnesium AST ALT Alkaline Phosphatase Lactate Dehydrogenase Troponin T C-Reactive Protein NT-Pro-B Natriuret Pep Total Protein Albumin LDL Cholesterol Direct Vitamin B12 Urine WBC (Auto) Fluid Glucose Fluid Total Protein Vancomycin Trough Crossmatch 11/20/21 11/20/21 11/20/21 05:40 05:40 Unknown WBC RBC 3.40 L Hgb 9.1 L Hct 28.8 L MCV MCH 27 L MCHC RDW 20.7 H Plt Count Seg Neuts % (Manual) Lymphocytes % (Manual) Seg Neutrophils # Man Lymphocytes # (Manual) Monocytes # (Manual) PT INR D-Dimer ABG pH ABG pO2 ABG HCO3 ABG O2 Saturation ABG Base Excess -2.7 L ABG Hemoglobin 9.5 L Oxyhemoglobin 94.3 L Sodium Potassium 3.5 L Chloride 108.9 H Carbon Dioxide BUN 37 H Creatinine Glucose 117 H POC Glucose Lactic Acid Calcium 7.5 L Phosphorus Magnesium AST ALT Alkaline Phosphatase Lactate Dehydrogenase Troponin T C-Reactive Protein NT-Pro-B Natriuret Pep Total Protein Albumin LDL Cholesterol Direct Vitamin B12 Urine WBC (Auto) Fluid Glucose Fluid Total Protein Vancomycin Trough Crossmatch 11/21/21 11/21/21 11/21/21 04:30 04:30 16:00 WBC RBC 3.25 L Hgb 8.6 L Hct 28.1 L MCV MCH 26 L MCHC RDW 20.7 H Plt Count Seg Neuts % (Manual) Lymphocytes % (Manual) Seg Neutrophils # Man Lymphocytes # (Manual) Monocytes # (Manual) PT INR D-Dimer ABG pH ABG pO2 114.2 H ABG HCO3 ABG O2 Saturation ABG Base Excess ABG Hemoglobin 9.1 L Oxyhemoglobin Sodium 134 L Potassium Chloride Carbon Dioxide 20 L BUN 34 H Creatinine Glucose POC Glucose Lactic Acid Calcium 7.1 L Phosphorus Magnesium AST ALT Alkaline Phosphatase Lactate Dehydrogenase Troponin T C-Reactive Protein NT-Pro-B Natriuret Pep Total Protein Albumin LDL Cholesterol Direct Vitamin B12 Urine WBC (Auto) Fluid Glucose Fluid Total Protein Vancomycin Trough Crossmatch 11/22/21 11/22/21 11/22/21 07:07 07:07 23:54 WBC RBC 3.30 L Hgb 9.0 L Hct 28.5 L MCV MCH 27 L MCHC RDW 21.0 H Plt Count Seg Neuts % (Manual) Lymphocytes % (Manual) Seg Neutrophils # Man Lymphocytes # (Manual) Monocytes # (Manual) PT INR D-Dimer ABG pH ABG pO2 ABG HCO3 ABG O2 Saturation ABG Base Excess ABG Hemoglobin Oxyhemoglobin Sodium Potassium Chloride Carbon Dioxide BUN 32 H Creatinine Glucose 106 H POC Glucose 110 H Lactic Acid Calcium 7.5 L Phosphorus Magnesium AST ALT Alkaline Phosphatase Lactate Dehydrogenase Troponin T C-Reactive Protein NT-Pro-B Natriuret Pep Total Protein Albumin LDL Cholesterol Direct Vitamin B12 Urine WBC (Auto) Fluid Glucose Fluid Total Protein Vancomycin Trough Crossmatch 11/23/21 11/23/21 11/23/21 04:38 04:38 06:01 WBC RBC 3.23 L Hgb 8.8 L Hct 28.0 L MCV MCH 27 L MCHC RDW 21.3 H Plt Count Seg Neuts % (Manual) Lymphocytes % (Manual) Seg Neutrophils # Man Lymphocytes # (Manual) Monocytes # (Manual) PT INR D-Dimer ABG pH ABG pO2 ABG HCO3 ABG O2 Saturation ABG Base Excess ABG Hemoglobin Oxyhemoglobin Sodium 136 L Potassium Chloride Carbon Dioxide 20 L BUN 32 H Creatinine Glucose 109 H POC Glucose 115 H Lactic Acid Calcium 7.7 L Phosphorus Magnesium AST ALT Alkaline Phosphatase Lactate Dehydrogenase Troponin T C-Reactive Protein NT-Pro-B Natriuret Pep Total Protein Albumin LDL Cholesterol Direct Vitamin B12 Urine WBC (Auto) Fluid Glucose Fluid Total Protein Vancomycin Trough Crossmatch 11/23/21 11/24/21 11/24/21 11:40 00:03 04:13 WBC RBC 3.18 L Hgb 8.5 L Hct 27.5 L MCV MCH 27 L MCHC RDW 21.6 H Plt Count Seg Neuts % (Manual) Lymphocytes % (Manual) Seg Neutrophils # Man Lymphocytes # (Manual) Monocytes # (Manual) PT INR D-Dimer ABG pH ABG pO2 ABG HCO3 ABG O2 Saturation ABG Base Excess ABG Hemoglobin Oxyhemoglobin Sodium Potassium Chloride Carbon Dioxide BUN Creatinine Glucose POC Glucose 117 H 111 H Lactic Acid Calcium Phosphorus Magnesium AST ALT Alkaline Phosphatase Lactate Dehydrogenase Troponin T C-Reactive Protein NT-Pro-B Natriuret Pep Total Protein Albumin LDL Cholesterol Direct Vitamin B12 Urine WBC (Auto) Fluid Glucose Fluid Total Protein Vancomycin Trough Crossmatch 11/24/21 11/24/21 11/24/21 04:13 05:30 11:10 WBC RBC Hgb Hct MCV MCH MCHC RDW Plt Count Seg Neuts % (Manual) Lymphocytes % (Manual) Seg Neutrophils # Man Lymphocytes # (Manual) Monocytes # (Manual) PT INR D-Dimer ABG pH ABG pO2 ABG HCO3 ABG O2 Saturation ABG Base Excess ABG Hemoglobin Oxyhemoglobin Sodium Potassium Chloride Carbon Dioxide BUN 31 H Creatinine Glucose 101 H POC Glucose 115 H 107 H Lactic Acid Calcium 7.7 L Phosphorus Magnesium AST ALT Alkaline Phosphatase Lactate Dehydrogenase Troponin T C-Reactive Protein NT-Pro-B Natriuret Pep Total Protein Albumin LDL Cholesterol Direct Vitamin B12 Urine WBC (Auto) Fluid Glucose Fluid Total Protein Vancomycin Trough Crossmatch 11/24/21 11/24/21 11/25/21 16:34 17:57 05:12 WBC RBC 3.11 L Hgb 8.2 L Hct 26.6 L MCV MCH 26 L MCHC RDW 21.3 H Plt Count Seg Neuts % (Manual) Lymphocytes % (Manual) Seg Neutrophils # Man Lymphocytes # (Manual) Monocytes # (Manual) PT INR D-Dimer ABG pH ABG pO2 ABG HCO3 ABG O2 Saturation ABG Base Excess ABG Hemoglobin Oxyhemoglobin Sodium Potassium Chloride Carbon Dioxide BUN Creatinine Glucose POC Glucose 115 H 110 H Lactic Acid Calcium Phosphorus Magnesium AST ALT Alkaline Phosphatase Lactate Dehydrogenase Troponin T C-Reactive Protein NT-Pro-B Natriuret Pep Total Protein Albumin LDL Cholesterol Direct Vitamin B12 Urine WBC (Auto) Fluid Glucose Fluid Total Protein Vancomycin Trough Crossmatch 11/25/21 11/25/21 11/26/21 05:12 11:20 05:00 WBC RBC 3.30 L Hgb 8.8 L Hct 28.2 L MCV MCH 27 L MCHC RDW 20.7 H Plt Count Seg Neuts % (Manual) Lymphocytes % (Manual) Seg Neutrophils # Man Lymphocytes # (Manual) Monocytes # (Manual) PT INR D-Dimer ABG pH ABG pO2 ABG HCO3 ABG O2 Saturation ABG Base Excess ABG Hemoglobin Oxyhemoglobin Sodium Potassium Chloride Carbon Dioxide BUN 32 H Creatinine Glucose 118 H POC Glucose 118 H Lactic Acid Calcium 8.2 L Phosphorus Magnesium AST ALT Alkaline Phosphatase Lactate Dehydrogenase Troponin T C-Reactive Protein NT-Pro-B Natriuret Pep Total Protein Albumin LDL Cholesterol Direct Vitamin B12 Urine WBC (Auto) Fluid Glucose Fluid Total Protein Vancomycin Trough Crossmatch 11/26/21 11/26/21 11/26/21 05:00 05:00 05:44 WBC RBC Hgb Hct MCV MCH MCHC RDW Plt Count Seg Neuts % (Manual) Lymphocytes % (Manual) Seg Neutrophils # Man Lymphocytes # (Manual) Monocytes # (Manual) PT 16.9 H INR 1.24 H D-Dimer ABG pH ABG pO2 ABG HCO3 ABG O2 Saturation ABG Base Excess ABG Hemoglobin Oxyhemoglobin Sodium Potassium Chloride Carbon Dioxide BUN 31 H Creatinine Glucose 104 H POC Glucose 110 H Lactic Acid Calcium 7.9 L Phosphorus Magnesium AST ALT Alkaline Phosphatase Lactate Dehydrogenase Troponin T C-Reactive Protein NT-Pro-B Natriuret Pep Total Protein Albumin LDL Cholesterol Direct Vitamin B12 Urine WBC (Auto) Fluid Glucose Fluid Total Protein Vancomycin Trough Crossmatch 11/26/21 11/27/21 11/27/21 23:55 07:40 07:40 WBC RBC 3.18 L Hgb 8.5 L Hct 27.0 L MCV MCH 27 L MCHC RDW 21.2 H Plt Count Seg Neuts % (Manual) Lymphocytes % (Manual) Seg Neutrophils # Man Lymphocytes # (Manual) Monocytes # (Manual) PT INR D-Dimer ABG pH ABG pO2 ABG HCO3 ABG O2 Saturation ABG Base Excess ABG Hemoglobin Oxyhemoglobin Sodium Potassium Chloride Carbon Dioxide BUN 27 H Creatinine Glucose 112 H POC Glucose 63 L Lactic Acid Calcium 7.6 L Phosphorus Magnesium AST ALT Alkaline Phosphatase Lactate Dehydrogenase Troponin T C-Reactive Protein NT-Pro-B Natriuret Pep Total Protein Albumin LDL Cholesterol Direct Vitamin B12 Urine WBC (Auto) Fluid Glucose Fluid Total Protein Vancomycin Trough Crossmatch 11/27/21 11/27/21 11/27/21 12:04 13:40 13:40 WBC RBC 3.31 L Hgb 8.7 L Hct 28.0 L MCV MCH 26 L MCHC RDW 20.7 H Plt Count Seg Neuts % (Manual) Lymphocytes % (Manual) Seg Neutrophils # Man Lymphocytes # (Manual) Monocytes # (Manual) PT INR D-Dimer ABG pH ABG pO2 ABG HCO3 ABG O2 Saturation ABG Base Excess ABG Hemoglobin Oxyhemoglobin Sodium 136 L Potassium Chloride Carbon Dioxide BUN 25 H Creatinine Glucose 127 H POC Glucose 109 H Lactic Acid Calcium 7.6 L Phosphorus Magnesium 1.40 L AST ALT Alkaline Phosphatase Lactate Dehydrogenase Troponin T C-Reactive Protein NT-Pro-B Natriuret Pep Total Protein Albumin LDL Cholesterol Direct Vitamin B12 Urine WBC (Auto) Fluid Glucose Fluid Total Protein Vancomycin Trough Crossmatch 11/27/21 11/27/21 11/28/21 17:44 23:33 12:20 WBC RBC Hgb Hct MCV MCH MCHC RDW Plt Count Seg Neuts % (Manual) Lymphocytes % (Manual) Seg Neutrophils # Man Lymphocytes # (Manual) Monocytes # (Manual) PT INR D-Dimer ABG pH ABG pO2 ABG HCO3 ABG O2 Saturation ABG Base Excess ABG Hemoglobin Oxyhemoglobin Sodium Potassium Chloride Carbon Dioxide BUN Creatinine Glucose POC Glucose 107 H 108 H 114 H Lactic Acid Calcium Phosphorus Magnesium AST ALT Alkaline Phosphatase Lactate Dehydrogenase Troponin T C-Reactive Protein NT-Pro-B Natriuret Pep Total Protein Albumin LDL Cholesterol Direct Vitamin B12 Urine WBC (Auto) Fluid Glucose Fluid Total Protein Vancomycin Trough Crossmatch 11/29/21 11/29/21 11/29/21 00:09 03:20 03:20 WBC RBC 3.05 L Hgb 8.2 L Hct 25.8 L MCV MCH 27 L MCHC RDW 20.9 H Plt Count Seg Neuts % (Manual) Lymphocytes % (Manual) Seg Neutrophils # Man Lymphocytes # (Manual) Monocytes # (Manual) PT INR D-Dimer ABG pH ABG pO2 ABG HCO3 ABG O2 Saturation ABG Base Excess ABG Hemoglobin Oxyhemoglobin Sodium 133 L Potassium Chloride Carbon Dioxide BUN 24 H Creatinine Glucose 137 H POC Glucose 134 H Lactic Acid Calcium 7.4 L Phosphorus Magnesium AST ALT Alkaline Phosphatase Lactate Dehydrogenase Troponin T C-Reactive Protein NT-Pro-B Natriuret Pep Total Protein Albumin LDL Cholesterol Direct Vitamin B12 Urine WBC (Auto) Fluid Glucose Fluid Total Protein Vancomycin Trough Crossmatch 11/29/21 11/29/21 11/29/21 05:38 11:39 17:11 WBC RBC Hgb Hct MCV MCH MCHC RDW Plt Count Seg Neuts % (Manual) Lymphocytes % (Manual) Seg Neutrophils # Man Lymphocytes # (Manual) Monocytes # (Manual) PT INR D-Dimer ABG pH ABG pO2 ABG HCO3 ABG O2 Saturation ABG Base Excess ABG Hemoglobin Oxyhemoglobin Sodium Potassium Chloride Carbon Dioxide BUN Creatinine Glucose POC Glucose 117 H 143 H 124 H Lactic Acid Calcium Phosphorus Magnesium AST ALT Alkaline Phosphatase Lactate Dehydrogenase Troponin T C-Reactive Protein NT-Pro-B Natriuret Pep Total Protein Albumin LDL Cholesterol Direct Vitamin B12 Urine WBC (Auto) Fluid Glucose Fluid Total Protein Vancomycin Trough Crossmatch 11/29/21 11/30/21 11/30/21 20:15 05:40 05:40 WBC 12.6 H RBC 3.41 L Hgb 9.1 L Hct 28.9 L MCV MCH 27 L MCHC RDW 20.4 H Plt Count Seg Neuts % (Manual) Lymphocytes % (Manual) Seg Neutrophils # Man Lymphocytes # (Manual) Monocytes # (Manual) PT INR D-Dimer ABG pH ABG pO2 ABG HCO3 ABG O2 Saturation ABG Base Excess ABG Hemoglobin Oxyhemoglobin Sodium Potassium Chloride Carbon Dioxide BUN 24 H Creatinine Glucose 131 H POC Glucose Lactic Acid Calcium 7.6 L Phosphorus Magnesium AST ALT Alkaline Phosphatase Lactate Dehydrogenase Troponin T 0.045 H C-Reactive Protein NT-Pro-B Natriuret Pep Total Protein Albumin LDL Cholesterol Direct 25 L Vitamin B12 Urine WBC (Auto) Fluid Glucose Fluid Total Protein Vancomycin Trough Crossmatch 11/30/21 11/30/21 12/01/21 11:29 16:51 05:00 WBC RBC 2.97 L Hgb 8.0 L Hct 25.0 L MCV MCH 27 L MCHC RDW 20.8 H Plt Count Seg Neuts % (Manual) Lymphocytes % (Manual) Seg Neutrophils # Man Lymphocytes # (Manual) Monocytes # (Manual) PT INR D-Dimer ABG pH ABG pO2 ABG HCO3 ABG O2 Saturation ABG Base Excess ABG Hemoglobin Oxyhemoglobin Sodium Potassium Chloride Carbon Dioxide BUN Creatinine Glucose POC Glucose 123 H 114 H Lactic Acid Calcium Phosphorus Magnesium AST ALT Alkaline Phosphatase Lactate Dehydrogenase Troponin T C-Reactive Protein NT-Pro-B Natriuret Pep Total Protein Albumin LDL Cholesterol Direct Vitamin B12 Urine WBC (Auto) Fluid Glucose Fluid Total Protein Vancomycin Trough Crossmatch 12/01/21 12/01/21 12/01/21 05:00 05:25 11:54 WBC RBC Hgb Hct MCV MCH MCHC RDW Plt Count Seg Neuts % (Manual) Lymphocytes % (Manual) Seg Neutrophils # Man Lymphocytes # (Manual) Monocytes # (Manual) PT INR D-Dimer ABG pH ABG pO2 ABG HCO3 ABG O2 Saturation ABG Base Excess ABG Hemoglobin Oxyhemoglobin Sodium 136 L Potassium Chloride Carbon Dioxide BUN 24 H Creatinine Glucose 117 H POC Glucose 108 H 107 H Lactic Acid Calcium 7.5 L Phosphorus Magnesium 1.60 L AST ALT Alkaline Phosphatase Lactate Dehydrogenase Troponin T C-Reactive Protein NT-Pro-B Natriuret Pep Total Protein Albumin LDL Cholesterol Direct Vitamin B12 Urine WBC (Auto) Fluid Glucose Fluid Total Protein Vancomycin Trough Crossmatch 12/01/21 12/02/21 12/02/21 17:40 00:07 04:20 WBC RBC 2.92 L Hgb 7.7 L Hct 24.3 L MCV MCH 26 L MCHC RDW 20.5 H Plt Count Seg Neuts % (Manual) Lymphocytes % (Manual) Seg Neutrophils # Man Lymphocytes # (Manual) Monocytes # (Manual) PT INR D-Dimer ABG pH ABG pO2 ABG HCO3 ABG O2 Saturation ABG Base Excess ABG Hemoglobin Oxyhemoglobin Sodium Potassium Chloride Carbon Dioxide BUN Creatinine Glucose POC Glucose 123 H 110 H Lactic Acid Calcium Phosphorus Magnesium AST ALT Alkaline Phosphatase Lactate Dehydrogenase Troponin T C-Reactive Protein NT-Pro-B Natriuret Pep Total Protein Albumin LDL Cholesterol Direct Vitamin B12 Urine WBC (Auto) Fluid Glucose Fluid Total Protein Vancomycin Trough Crossmatch 12/02/21 12/02/21 12/02/21 04:20 11:17 18:20 WBC RBC Hgb Hct MCV MCH MCHC RDW Plt Count Seg Neuts % (Manual) Lymphocytes % (Manual) Seg Neutrophils # Man Lymphocytes # (Manual) Monocytes # (Manual) PT INR D-Dimer ABG pH ABG pO2 ABG HCO3 ABG O2 Saturation ABG Base Excess ABG Hemoglobin Oxyhemoglobin Sodium 135 L Potassium Chloride Carbon Dioxide BUN 26 H Creatinine Glucose 121 H POC Glucose 117 H 113 H Lactic Acid Calcium 7.4 L Phosphorus Magnesium AST ALT Alkaline Phosphatase Lactate Dehydrogenase Troponin T C-Reactive Protein NT-Pro-B Natriuret Pep Total Protein Albumin LDL Cholesterol Direct Vitamin B12 Urine WBC (Auto) Fluid Glucose Fluid Total Protein Vancomycin Trough Crossmatch 12/03/21 12/03/21 12/03/21 00:12 04:00 04:00 WBC RBC 2.99 L Hgb 7.8 L Hct 24.6 L MCV MCH 26 L MCHC RDW 20.2 H Plt Count Seg Neuts % (Manual) Lymphocytes % (Manual) Seg Neutrophils # Man Lymphocytes # (Manual) Monocytes # (Manual) PT INR D-Dimer ABG pH ABG pO2 ABG HCO3 ABG O2 Saturation ABG Base Excess ABG Hemoglobin Oxyhemoglobin Sodium 136 L Potassium Chloride Carbon Dioxide BUN 27 H Creatinine Glucose 133 H POC Glucose 121 H Lactic Acid Calcium 7.5 L Phosphorus Magnesium AST ALT Alkaline Phosphatase Lactate Dehydrogenase Troponin T C-Reactive Protein NT-Pro-B Natriuret Pep Total Protein Albumin LDL Cholesterol Direct Vitamin B12 Urine WBC (Auto) Fluid Glucose Fluid Total Protein Vancomycin Trough Crossmatch 12/03/21 12/03/21 12/03/21 06:30 11:13 16:00 WBC RBC Hgb Hct MCV MCH MCHC RDW Plt Count Seg Neuts % (Manual) Lymphocytes % (Manual) Seg Neutrophils # Man Lymphocytes # (Manual) Monocytes # (Manual) PT INR D-Dimer ABG pH ABG pO2 ABG HCO3 ABG O2 Saturation ABG Base Excess ABG Hemoglobin Oxyhemoglobin Sodium Potassium Chloride Carbon Dioxide BUN Creatinine Glucose POC Glucose 129 H 125 H 125 H Lactic Acid Calcium Phosphorus Magnesium AST ALT Alkaline Phosphatase Lactate Dehydrogenase Troponin T C-Reactive Protein NT-Pro-B Natriuret Pep Total Protein Albumin LDL Cholesterol Direct Vitamin B12 Urine WBC (Auto) Fluid Glucose Fluid Total Protein Vancomycin Trough Crossmatch 12/03/21 12/04/21 12/04/21 23:32 04:00 05:36 WBC RBC Hgb Hct MCV MCH MCHC RDW Plt Count Seg Neuts % (Manual) Lymphocytes % (Manual) Seg Neutrophils # Man Lymphocytes # (Manual) Monocytes # (Manual) PT INR D-Dimer ABG pH ABG pO2 ABG HCO3 ABG O2 Saturation ABG Base Excess ABG Hemoglobin Oxyhemoglobin Sodium Potassium 3.5 L Chloride Carbon Dioxide BUN 26 H Creatinine 0.5 L Glucose 151 H POC Glucose 133 H 142 H Lactic Acid Calcium 8.3 L Phosphorus Magnesium AST ALT Alkaline Phosphatase Lactate Dehydrogenase Troponin T C-Reactive Protein NT-Pro-B Natriuret Pep Total Protein Albumin LDL Cholesterol Direct Vitamin B12 Urine WBC (Auto) Fluid Glucose Fluid Total Protein Vancomycin Trough Crossmatch 12/04/21 12/04/21 12/05/21 11:24 15:58 04:36 WBC RBC Hgb Hct MCV MCH MCHC RDW Plt Count Seg Neuts % (Manual) Lymphocytes % (Manual) Seg Neutrophils # Man Lymphocytes # (Manual) Monocytes # (Manual) PT INR D-Dimer ABG pH ABG pO2 ABG HCO3 ABG O2 Saturation ABG Base Excess ABG Hemoglobin Oxyhemoglobin Sodium Potassium Chloride Carbon Dioxide BUN 21 H Creatinine 0.5 L Glucose 119 H POC Glucose 130 H 111 H Lactic Acid Calcium 8.3 L Phosphorus Magnesium AST ALT Alkaline Phosphatase Lactate Dehydrogenase Troponin T C-Reactive Protein NT-Pro-B Natriuret Pep Total Protein Albumin LDL Cholesterol Direct Vitamin B12 Urine WBC (Auto) Fluid Glucose Fluid Total Protein Vancomycin Trough Crossmatch 12/05/21 12/05/21 12/05/21 05:15 10:40 11:12 WBC RBC 2.98 L Hgb 8.1 L Hct 24.6 L MCV MCH 27 L MCHC RDW 20.8 H Plt Count Seg Neuts % (Manual) Lymphocytes % (Manual) Seg Neutrophils # Man Lymphocytes # (Manual) Monocytes # (Manual) PT INR D-Dimer ABG pH ABG pO2 ABG HCO3 ABG O2 Saturation ABG Base Excess ABG Hemoglobin Oxyhemoglobin Sodium Potassium Chloride Carbon Dioxide BUN Creatinine Glucose POC Glucose 107 H 110 H Lactic Acid Calcium Phosphorus Magnesium AST ALT Alkaline Phosphatase Lactate Dehydrogenase Troponin T C-Reactive Protein NT-Pro-B Natriuret Pep Total Protein Albumin LDL Cholesterol Direct Vitamin B12 Urine WBC (Auto) Fluid Glucose Fluid Total Protein Vancomycin Trough Crossmatch 12/05/21 12/06/21 12/06/21 23:39 04:25 04:25 WBC RBC 2.95 L Hgb 7.9 L Hct 24.7 L MCV MCH 27 L MCHC RDW 20.9 H Plt Count Seg Neuts % (Manual) Lymphocytes % (Manual) Seg Neutrophils # Man Lymphocytes # (Manual) Monocytes # (Manual) PT INR D-Dimer ABG pH ABG pO2 ABG HCO3 ABG O2 Saturation ABG Base Excess ABG Hemoglobin Oxyhemoglobin Sodium Potassium Chloride Carbon Dioxide BUN 22 H Creatinine 0.5 L Glucose 136 H POC Glucose 118 H Lactic Acid Calcium 8.2 L Phosphorus Magnesium AST ALT Alkaline Phosphatase Lactate Dehydrogenase Troponin T C-Reactive Protein NT-Pro-B Natriuret Pep Total Protein Albumin LDL Cholesterol Direct Vitamin B12 Urine WBC (Auto) Fluid Glucose Fluid Total Protein Vancomycin Trough Crossmatch 12/06/21 12/06/21 12/07/21 05:28 11:27 04:00 WBC RBC Hgb 7.2 L Hct 21.8 L MCV MCH MCHC RDW Plt Count Seg Neuts % (Manual) Lymphocytes % (Manual) Seg Neutrophils # Man Lymphocytes # (Manual) Monocytes # (Manual) PT INR D-Dimer ABG pH ABG pO2 ABG HCO3 ABG O2 Saturation ABG Base Excess ABG Hemoglobin Oxyhemoglobin Sodium Potassium Chloride Carbon Dioxide BUN Creatinine Glucose POC Glucose 142 H 126 H Lactic Acid Calcium Phosphorus Magnesium AST ALT Alkaline Phosphatase Lactate Dehydrogenase Troponin T C-Reactive Protein NT-Pro-B Natriuret Pep Total Protein Albumin LDL Cholesterol Direct Vitamin B12 Urine WBC (Auto) Fluid Glucose Fluid Total Protein Vancomycin Trough Crossmatch 12/07/21 12/07/21 12/07/21 04:00 05:30 11:12 WBC RBC Hgb Hct MCV MCH MCHC RDW Plt Count Seg Neuts % (Manual) Lymphocytes % (Manual) Seg Neutrophils # Man Lymphocytes # (Manual) Monocytes # (Manual) PT INR D-Dimer ABG pH ABG pO2 ABG HCO3 ABG O2 Saturation ABG Base Excess ABG Hemoglobin Oxyhemoglobin Sodium Potassium Chloride Carbon Dioxide BUN 22 H Creatinine Glucose 119 H POC Glucose 121 H 124 H Lactic Acid Calcium 8.0 L Phosphorus Magnesium AST ALT Alkaline Phosphatase Lactate Dehydrogenase Troponin T C-Reactive Protein NT-Pro-B Natriuret Pep Total Protein Albumin LDL Cholesterol Direct Vitamin B12 Urine WBC (Auto) Fluid Glucose Fluid Total Protein Vancomycin Trough Crossmatch 12/08/21 12/08/21 12/08/21 04:00 04:00 05:39 WBC RBC 2.81 L Hgb 7.7 L Hct 23.5 L MCV MCH MCHC RDW 21.2 H Plt Count Seg Neuts % (Manual) Lymphocytes % (Manual) Seg Neutrophils # Man Lymphocytes # (Manual) Monocytes # (Manual) PT INR D-Dimer ABG pH ABG pO2 ABG HCO3 ABG O2 Saturation ABG Base Excess ABG Hemoglobin Oxyhemoglobin Sodium 135 L Potassium Chloride Carbon Dioxide BUN 23 H Creatinine Glucose 109 H POC Glucose 112 H Lactic Acid Calcium Phosphorus Magnesium AST ALT Alkaline Phosphatase Lactate Dehydrogenase Troponin T C-Reactive Protein NT-Pro-B Natriuret Pep Total Protein Albumin LDL Cholesterol Direct Vitamin B12 Urine WBC (Auto) Fluid Glucose Fluid Total Protein Vancomycin Trough Crossmatch 12/08/21 12/09/21 12/09/21 11:03 04:20 04:20 WBC RBC 2.67 L Hgb 7.6 L Hct 22.1 L MCV MCH MCHC RDW 20.8 H Plt Count Seg Neuts % (Manual) Lymphocytes % (Manual) Seg Neutrophils # Man Lymphocytes # (Manual) Monocytes # (Manual) PT INR D-Dimer ABG pH ABG pO2 ABG HCO3 ABG O2 Saturation ABG Base Excess ABG Hemoglobin Oxyhemoglobin Sodium 135 L Potassium Chloride 97.8 L Carbon Dioxide BUN 26 H Creatinine Glucose 119 H POC Glucose 108 H Lactic Acid Calcium 7.7 L Phosphorus Magnesium AST ALT Alkaline Phosphatase Lactate Dehydrogenase Troponin T C-Reactive Protein NT-Pro-B Natriuret Pep Total Protein Albumin LDL Cholesterol Direct Vitamin B12 Urine WBC (Auto) Fluid Glucose Fluid Total Protein Vancomycin Trough Crossmatch 12/09/21 12/10/21 12/10/21 11:26 04:33 11:12 WBC RBC Hgb Hct MCV MCH MCHC RDW Plt Count Seg Neuts % (Manual) Lymphocytes % (Manual) Seg Neutrophils # Man Lymphocytes # (Manual) Monocytes # (Manual) PT INR D-Dimer ABG pH ABG pO2 ABG HCO3 ABG O2 Saturation ABG Base Excess ABG Hemoglobin Oxyhemoglobin Sodium 136 L Potassium Chloride Carbon Dioxide BUN 27 H Creatinine Glucose 117 H POC Glucose 110 H 117 H Lactic Acid Calcium 8.2 L Phosphorus Magnesium AST ALT Alkaline Phosphatase Lactate Dehydrogenase Troponin T C-Reactive Protein NT-Pro-B Natriuret Pep Total Protein Albumin LDL Cholesterol Direct Vitamin B12 Urine WBC (Auto) Fluid Glucose Fluid Total Protein Vancomycin Trough Crossmatch 12/10/21 12/10/21 12/11/21 16:02 23:31 04:35 WBC RBC 2.57 L Hgb 7.0 L Hct 21.4 L MCV MCH 27 L MCHC RDW 21.1 H Plt Count Seg Neuts % (Manual) Lymphocytes % (Manual) Seg Neutrophils # Man Lymphocytes # (Manual) Monocytes # (Manual) PT INR D-Dimer ABG pH ABG pO2 ABG HCO3 ABG O2 Saturation ABG Base Excess ABG Hemoglobin Oxyhemoglobin Sodium Potassium Chloride Carbon Dioxide BUN Creatinine Glucose POC Glucose 137 H 111 H Lactic Acid Calcium Phosphorus Magnesium AST ALT Alkaline Phosphatase Lactate Dehydrogenase Troponin T C-Reactive Protein NT-Pro-B Natriuret Pep Total Protein Albumin LDL Cholesterol Direct Vitamin B12 Urine WBC (Auto) Fluid Glucose Fluid Total Protein Vancomycin Trough Crossmatch 12/11/21 12/11/21 12/11/21 04:35 12:46 16:07 WBC RBC Hgb Hct MCV MCH MCHC RDW Plt Count Seg Neuts % (Manual) Lymphocytes % (Manual) Seg Neutrophils # Man Lymphocytes # (Manual) Monocytes # (Manual) PT INR D-Dimer ABG pH ABG pO2 ABG HCO3 ABG O2 Saturation ABG Base Excess ABG Hemoglobin Oxyhemoglobin Sodium 136 L Potassium Chloride Carbon Dioxide BUN 27 H Creatinine Glucose 112 H POC Glucose 115 H 111 H Lactic Acid Calcium 7.6 L Phosphorus Magnesium AST ALT Alkaline Phosphatase Lactate Dehydrogenase Troponin T C-Reactive Protein NT-Pro-B Natriuret Pep Total Protein Albumin LDL Cholesterol Direct Vitamin B12 Urine WBC (Auto) Fluid Glucose Fluid Total Protein Vancomycin Trough Crossmatch 12/11/21 12/12/21 12/12/21 23:42 04:30 04:30 WBC RBC 2.60 L Hgb 7.1 L Hct 21.5 L MCV MCH 27 L MCHC RDW 20.3 H Plt Count Seg Neuts % (Manual) Lymphocytes % (Manual) Seg Neutrophils # Man Lymphocytes # (Manual) Monocytes # (Manual) PT INR D-Dimer ABG pH ABG pO2 ABG HCO3 ABG O2 Saturation ABG Base Excess ABG Hemoglobin Oxyhemoglobin Sodium 135 L Potassium Chloride 97.9 L Carbon Dioxide BUN 26 H Creatinine 0.5 L Glucose 138 H POC Glucose 115 H Lactic Acid Calcium 8.2 L Phosphorus Magnesium AST ALT Alkaline Phosphatase Lactate Dehydrogenase Troponin T C-Reactive Protein NT-Pro-B Natriuret Pep Total Protein Albumin LDL Cholesterol Direct Vitamin B12 Urine WBC (Auto) Fluid Glucose Fluid Total Protein Vancomycin Trough Crossmatch 12/12/21 12/12/21 12/12/21 04:30 05:10 11:51 WBC RBC Hgb Hct MCV MCH MCHC RDW Plt Count Seg Neuts % (Manual) Lymphocytes % (Manual) Seg Neutrophils # Man Lymphocytes # (Manual) Monocytes # (Manual) PT INR D-Dimer ABG pH ABG pO2 ABG HCO3 ABG O2 Saturation ABG Base Excess ABG Hemoglobin Oxyhemoglobin Sodium Potassium Chloride Carbon Dioxide BUN Creatinine Glucose POC Glucose 119 H 119 H Lactic Acid Calcium Phosphorus Magnesium AST ALT Alkaline Phosphatase Lactate Dehydrogenase Troponin T C-Reactive Protein NT-Pro-B Natriuret Pep Total Protein Albumin LDL Cholesterol Direct Vitamin B12 Urine WBC (Auto) Fluid Glucose Fluid Total Protein Vancomycin Trough Crossmatch See Detail 12/13/21 12/13/21 12/13/21 00:52 04:00 04:00 WBC RBC 2.73 L Hgb 7.4 L Hct 22.8 L MCV MCH 27 L MCHC RDW 20.5 H Plt Count Seg Neuts % (Manual) Lymphocytes % (Manual) Seg Neutrophils # Man Lymphocytes # (Manual) Monocytes # (Manual) PT INR D-Dimer ABG pH ABG pO2 ABG HCO3 ABG O2 Saturation ABG Base Excess ABG Hemoglobin Oxyhemoglobin Sodium 134 L Potassium Chloride 96.7 L Carbon Dioxide BUN 23 H Creatinine 0.5 L Glucose 131 H POC Glucose 131 H Lactic Acid Calcium 8.1 L Phosphorus Magnesium AST ALT Alkaline Phosphatase Lactate Dehydrogenase Troponin T C-Reactive Protein NT-Pro-B Natriuret Pep Total Protein Albumin LDL Cholesterol Direct Vitamin B12 Urine WBC (Auto) Fluid Glucose Fluid Total Protein Vancomycin Trough Crossmatch 12/13/21 12/13/21 12/13/21 05:23 12:11 17:18 WBC RBC Hgb Hct MCV MCH MCHC RDW Plt Count Seg Neuts % (Manual) Lymphocytes % (Manual) Seg Neutrophils # Man Lymphocytes # (Manual) Monocytes # (Manual) PT INR D-Dimer ABG pH ABG pO2 ABG HCO3 ABG O2 Saturation ABG Base Excess ABG Hemoglobin Oxyhemoglobin Sodium Potassium Chloride Carbon Dioxide BUN Creatinine Glucose POC Glucose 121 H 143 H 148 H Lactic Acid Calcium Phosphorus Magnesium AST ALT Alkaline Phosphatase Lactate Dehydrogenase Troponin T C-Reactive Protein NT-Pro-B Natriuret Pep Total Protein Albumin LDL Cholesterol Direct Vitamin B12 Urine WBC (Auto) Fluid Glucose Fluid Total Protein Vancomycin Trough Crossmatch 12/14/21 12/14/21 12/14/21 00:54 04:20 04:20 WBC RBC 2.39 L Hgb 6.5 L Hct 20.3 L MCV MCH 27 L MCHC RDW 20.3 H Plt Count Seg Neuts % (Manual) Lymphocytes % (Manual) Seg Neutrophils # Man Lymphocytes # (Manual) Monocytes # (Manual) PT INR D-Dimer ABG pH ABG pO2 ABG HCO3 ABG O2 Saturation ABG Base Excess ABG Hemoglobin Oxyhemoglobin Sodium 130 L Potassium Chloride 93.5 L Carbon Dioxide BUN 25 H Creatinine Glucose 123 H POC Glucose 123 H Lactic Acid Calcium 8.0 L Phosphorus Magnesium AST ALT Alkaline Phosphatase Lactate Dehydrogenase Troponin T C-Reactive Protein NT-Pro-B Natriuret Pep Total Protein Albumin LDL Cholesterol Direct Vitamin B12 Urine WBC (Auto) Fluid Glucose Fluid Total Protein Vancomycin Trough Crossmatch 12/14/21 12/14/21 12/14/21 05:06 08:17 10:30 WBC RBC Hgb Hct MCV MCH MCHC RDW Plt Count Seg Neuts % (Manual) Lymphocytes % (Manual) Seg Neutrophils # Man Lymphocytes # (Manual) Monocytes # (Manual) PT INR D-Dimer ABG pH ABG pO2 ABG HCO3 ABG O2 Saturation ABG Base Excess ABG Hemoglobin Oxyhemoglobin Sodium Potassium Chloride Carbon Dioxide BUN Creatinine Glucose POC Glucose 131 H 119 H Lactic Acid Calcium Phosphorus Magnesium AST ALT Alkaline Phosphatase Lactate Dehydrogenase Troponin T C-Reactive Protein NT-Pro-B Natriuret Pep Total Protein Albumin LDL Cholesterol Direct Vitamin B12 Urine WBC (Auto) Fluid Glucose Fluid Total Protein Vancomycin Trough Crossmatch See Detail 12/14/21 12/14/21 12/14/21 12:15 16:37 23:27 WBC RBC Hgb Hct MCV MCH MCHC RDW Plt Count Seg Neuts % (Manual) Lymphocytes % (Manual) Seg Neutrophils # Man Lymphocytes # (Manual) Monocytes # (Manual) PT INR D-Dimer ABG pH ABG pO2 ABG HCO3 ABG O2 Saturation ABG Base Excess ABG Hemoglobin Oxyhemoglobin Sodium Potassium Chloride Carbon Dioxide BUN Creatinine Glucose POC Glucose 147 H 141 H 130 H Lactic Acid Calcium Phosphorus Magnesium AST ALT Alkaline Phosphatase Lactate Dehydrogenase Troponin T C-Reactive Protein NT-Pro-B Natriuret Pep Total Protein Albumin LDL Cholesterol Direct Vitamin B12 Urine WBC (Auto) Fluid Glucose Fluid Total Protein Vancomycin Trough Crossmatch 12/15/21 12/15/21 12/15/21 05:00 07:00 07:00 WBC 12.3 H RBC 3.27 L Hgb 8.8 L Hct 27.5 L D MCV MCH 27 L MCHC RDW 19.0 H Plt Count Seg Neuts % (Manual) Lymphocytes % (Manual) Seg Neutrophils # Man Lymphocytes # (Manual) Monocytes # (Manual) PT INR D-Dimer ABG pH ABG pO2 ABG HCO3 ABG O2 Saturation ABG Base Excess ABG Hemoglobin Oxyhemoglobin Sodium 134 L Potassium Chloride 95.7 L Carbon Dioxide BUN 28 H Creatinine Glucose 129 H POC Glucose 129 H Lactic Acid Calcium 8.2 L Phosphorus Magnesium AST ALT Alkaline Phosphatase Lactate Dehydrogenase Troponin T C-Reactive Protein NT-Pro-B Natriuret Pep Total Protein Albumin LDL Cholesterol Direct Vitamin B12 Urine WBC (Auto) Fluid Glucose Fluid Total Protein Vancomycin Trough Crossmatch 12/15/21 12/15/21 12/15/21 11:18 16:00 23:39 WBC RBC Hgb Hct MCV MCH MCHC RDW Plt Count Seg Neuts % (Manual) Lymphocytes % (Manual) Seg Neutrophils # Man Lymphocytes # (Manual) Monocytes # (Manual) PT INR D-Dimer ABG pH ABG pO2 ABG HCO3 ABG O2 Saturation ABG Base Excess ABG Hemoglobin Oxyhemoglobin Sodium Potassium Chloride Carbon Dioxide BUN Creatinine Glucose POC Glucose 139 H 137 H 146 H Lactic Acid Calcium Phosphorus Magnesium AST ALT Alkaline Phosphatase Lactate Dehydrogenase Troponin T C-Reactive Protein NT-Pro-B Natriuret Pep Total Protein Albumin LDL Cholesterol Direct Vitamin B12 Urine WBC (Auto) Fluid Glucose Fluid Total Protein Vancomycin Trough Crossmatch 12/16/21 12/16/21 12/16/21 05:24 10:21 10:21 WBC 15.3 H RBC 3.24 L Hgb 8.9 L Hct 27.7 L MCV MCH MCHC RDW 19.0 H Plt Count Seg Neuts % (Manual) Lymphocytes % (Manual) Seg Neutrophils # Man Lymphocytes # (Manual) Monocytes # (Manual) PT INR D-Dimer ABG pH ABG pO2 ABG HCO3 ABG O2 Saturation ABG Base Excess ABG Hemoglobin Oxyhemoglobin Sodium 131 L Potassium 3.5 L Chloride 92.7 L Carbon Dioxide BUN 36 H Creatinine Glucose 160 H POC Glucose 121 H Lactic Acid Calcium Phosphorus Magnesium 1.60 L AST ALT Alkaline Phosphatase Lactate Dehydrogenase Troponin T C-Reactive Protein NT-Pro-B Natriuret Pep Total Protein Albumin LDL Cholesterol Direct Vitamin B12 Urine WBC (Auto) Fluid Glucose Fluid Total Protein Vancomycin Trough Crossmatch 12/16/21 12/16/21 12/16/21 11:21 18:28 20:52 WBC RBC Hgb Hct MCV MCH MCHC RDW Plt Count Seg Neuts % (Manual) Lymphocytes % (Manual) Seg Neutrophils # Man Lymphocytes # (Manual) Monocytes # (Manual) PT INR D-Dimer ABG pH 7.479 H ABG pO2 79.3 L ABG HCO3 27.3 H ABG O2 Saturation ABG Base Excess 3.6 H ABG Hemoglobin 9.1 L Oxyhemoglobin 94.9 L Sodium Potassium Chloride Carbon Dioxide BUN Creatinine Glucose POC Glucose 153 H 132 H Lactic Acid Calcium Phosphorus Magnesium AST ALT Alkaline Phosphatase Lactate Dehydrogenase Troponin T C-Reactive Protein NT-Pro-B Natriuret Pep Total Protein Albumin LDL Cholesterol Direct Vitamin B12 Urine WBC (Auto) Fluid Glucose Fluid Total Protein Vancomycin Trough Crossmatch 12/16/21 12/17/21 12/17/21 23:30 04:25 04:25 WBC 12.3 H RBC 2.16 L Hgb 6.0 L Hct 18.1 L* D MCV MCH MCHC RDW 19.4 H Plt Count Seg Neuts % (Manual) Lymphocytes % (Manual) Seg Neutrophils # Man Lymphocytes # (Manual) Monocytes # (Manual) PT INR D-Dimer ABG pH ABG pO2 ABG HCO3 ABG O2 Saturation ABG Base Excess ABG Hemoglobin Oxyhemoglobin Sodium 132 L Potassium 3.2 L Chloride 112.0 H Carbon Dioxide BUN 32 H Creatinine Glucose 122 H POC Glucose 137 H Lactic Acid Calcium 6.8 L D Phosphorus Magnesium AST ALT Alkaline Phosphatase Lactate Dehydrogenase Troponin T C-Reactive Protein NT-Pro-B Natriuret Pep Total Protein Albumin LDL Cholesterol Direct Vitamin B12 Urine WBC (Auto) Fluid Glucose Fluid Total Protein Vancomycin Trough Crossmatch 12/17/21 12/17/21 12/17/21 05:30 11:49 14:45 WBC RBC Hgb 9.7 L D Hct MCV MCH MCHC RDW Plt Count Seg Neuts % (Manual) Lymphocytes % (Manual) Seg Neutrophils # Man Lymphocytes # (Manual) Monocytes # (Manual) PT INR D-Dimer ABG pH ABG pO2 ABG HCO3 ABG O2 Saturation ABG Base Excess ABG Hemoglobin Oxyhemoglobin Sodium Potassium Chloride Carbon Dioxide BUN Creatinine Glucose POC Glucose 137 H 143 H Lactic Acid Calcium Phosphorus Magnesium AST ALT Alkaline Phosphatase Lactate Dehydrogenase Troponin T C-Reactive Protein NT-Pro-B Natriuret Pep Total Protein Albumin LDL Cholesterol Direct Vitamin B12 Urine WBC (Auto) Fluid Glucose Fluid Total Protein Vancomycin Trough Crossmatch 12/17/21 12/18/21 12/18/21 17:01 05:04 05:04 WBC 13.8 H RBC 3.44 L Hgb 9.9 L Hct 28.8 L MCV MCH MCHC RDW 18.1 H Plt Count Seg Neuts % (Manual) Lymphocytes % (Manual) Seg Neutrophils # Man Lymphocytes # (Manual) Monocytes # (Manual) PT INR D-Dimer ABG pH ABG pO2 ABG HCO3 ABG O2 Saturation ABG Base Excess ABG Hemoglobin Oxyhemoglobin Sodium 132 L Potassium Chloride 97.4 L Carbon Dioxide BUN 38 H Creatinine Glucose 134 H POC Glucose 132 H Lactic Acid Calcium Phosphorus Magnesium AST ALT Alkaline Phosphatase Lactate Dehydrogenase Troponin T C-Reactive Protein NT-Pro-B Natriuret Pep Total Protein Albumin LDL Cholesterol Direct Vitamin B12 Urine WBC (Auto) Fluid Glucose Fluid Total Protein Vancomycin Trough Crossmatch 12/18/21 12/18/21 12/18/21 05:28 10:57 16:27 WBC RBC Hgb Hct MCV MCH MCHC RDW Plt Count Seg Neuts % (Manual) Lymphocytes % (Manual) Seg Neutrophils # Man Lymphocytes # (Manual) Monocytes # (Manual) PT INR D-Dimer ABG pH ABG pO2 ABG HCO3 ABG O2 Saturation ABG Base Excess ABG Hemoglobin Oxyhemoglobin Sodium Potassium Chloride Carbon Dioxide BUN Creatinine Glucose POC Glucose 118 H 132 H 130 H Lactic Acid Calcium Phosphorus Magnesium AST ALT Alkaline Phosphatase Lactate Dehydrogenase Troponin T C-Reactive Protein NT-Pro-B Natriuret Pep Total Protein Albumin LDL Cholesterol Direct Vitamin B12 Urine WBC (Auto) Fluid Glucose Fluid Total Protein Vancomycin Trough Crossmatch 12/19/21 12/19/21 12/19/21 00:02 04:41 04:41 WBC 16.0 H RBC 3.45 L Hgb 9.7 L Hct 29.1 L MCV MCH MCHC RDW 17.8 H Plt Count Seg Neuts % (Manual) Lymphocytes % (Manual) Seg Neutrophils # Man Lymphocytes # (Manual) Monocytes # (Manual) PT INR D-Dimer ABG pH ABG pO2 ABG HCO3 ABG O2 Saturation ABG Base Excess ABG Hemoglobin Oxyhemoglobin Sodium 133 L Potassium Chloride 97.9 L Carbon Dioxide BUN 36 H Creatinine 0.5 L Glucose 126 H POC Glucose 127 H Lactic Acid Calcium 8.3 L Phosphorus Magnesium AST ALT Alkaline Phosphatase Lactate Dehydrogenase Troponin T C-Reactive Protein NT-Pro-B Natriuret Pep Total Protein Albumin LDL Cholesterol Direct Vitamin B12 Urine WBC (Auto) Fluid Glucose Fluid Total Protein Vancomycin Trough Crossmatch 12/19/21 12/19/21 12/19/21 05:26 12:20 16:43 WBC RBC Hgb Hct MCV MCH MCHC RDW Plt Count Seg Neuts % (Manual) Lymphocytes % (Manual) Seg Neutrophils # Man Lymphocytes # (Manual) Monocytes # (Manual) PT INR D-Dimer ABG pH ABG pO2 ABG HCO3 ABG O2 Saturation ABG Base Excess ABG Hemoglobin Oxyhemoglobin Sodium Potassium Chloride Carbon Dioxide BUN Creatinine Glucose POC Glucose 119 H 145 H 126 H Lactic Acid Calcium Phosphorus Magnesium AST ALT Alkaline Phosphatase Lactate Dehydrogenase Troponin T C-Reactive Protein NT-Pro-B Natriuret Pep Total Protein Albumin LDL Cholesterol Direct Vitamin B12 Urine WBC (Auto) Fluid Glucose Fluid Total Protein Vancomycin Trough Crossmatch 12/19/21 12/20/21 12/20/21 23:30 04:54 04:54 WBC 12.3 H RBC 3.54 L Hgb 10.0 L Hct 29.5 L MCV MCH MCHC RDW 17.8 H Plt Count Seg Neuts % (Manual) 88.0 H Lymphocytes % (Manual) 6.0 L Seg Neutrophils # Man 10.8 H Lymphocytes # (Manual) 0.7 L Monocytes # (Manual) PT INR D-Dimer ABG pH ABG pO2 ABG HCO3 ABG O2 Saturation ABG Base Excess ABG Hemoglobin Oxyhemoglobin Sodium 131 L Potassium Chloride 96.2 L Carbon Dioxide BUN 36 H Creatinine 0.5 L Glucose 130 H POC Glucose 117 H Lactic Acid Calcium Phosphorus Magnesium AST ALT Alkaline Phosphatase Lactate Dehydrogenase Troponin T C-Reactive Protein NT-Pro-B Natriuret Pep Total Protein Albumin LDL Cholesterol Direct Vitamin B12 Urine WBC (Auto) Fluid Glucose Fluid Total Protein Vancomycin Trough Crossmatch 12/20/21 12/20/21 12/20/21 05:20 11:51 17:30 WBC RBC Hgb Hct MCV MCH MCHC RDW Plt Count Seg Neuts % (Manual) Lymphocytes % (Manual) Seg Neutrophils # Man Lymphocytes # (Manual) Monocytes # (Manual) PT INR D-Dimer ABG pH ABG pO2 ABG HCO3 ABG O2 Saturation ABG Base Excess ABG Hemoglobin Oxyhemoglobin Sodium Potassium Chloride Carbon Dioxide BUN Creatinine Glucose POC Glucose 126 H 119 H 127 H Lactic Acid Calcium Phosphorus Magnesium AST ALT Alkaline Phosphatase Lactate Dehydrogenase Troponin T C-Reactive Protein NT-Pro-B Natriuret Pep Total Protein Albumin LDL Cholesterol Direct Vitamin B12 Urine WBC (Auto) Fluid Glucose Fluid Total Protein Vancomycin Trough Crossmatch 12/21/21 12/21/21 12/21/21 00:45 04:21 04:21 WBC RBC 3.47 L Hgb 9.4 L Hct 29.2 L MCV MCH 27 L MCHC RDW 18.1 H Plt Count Seg Neuts % (Manual) Lymphocytes % (Manual) Seg Neutrophils # Man Lymphocytes # (Manual) Monocytes # (Manual) PT INR D-Dimer ABG pH ABG pO2 ABG HCO3 ABG O2 Saturation ABG Base Excess ABG Hemoglobin Oxyhemoglobin Sodium 134 L Potassium Chloride Carbon Dioxide BUN 35 H Creatinine 0.5 L Glucose 122 H POC Glucose 125 H Lactic Acid Calcium 8.2 L Phosphorus Magnesium AST ALT Alkaline Phosphatase Lactate Dehydrogenase Troponin T C-Reactive Protein NT-Pro-B Natriuret Pep Total Protein Albumin LDL Cholesterol Direct Vitamin B12 Urine WBC (Auto) Fluid Glucose Fluid Total Protein Vancomycin Trough Crossmatch 12/21/21 12/21/21 12/21/21 05:38 11:29 16:16 WBC RBC Hgb Hct MCV MCH MCHC RDW Plt Count Seg Neuts % (Manual) Lymphocytes % (Manual) Seg Neutrophils # Man Lymphocytes # (Manual) Monocytes # (Manual) PT INR D-Dimer ABG pH ABG pO2 ABG HCO3 ABG O2 Saturation ABG Base Excess ABG Hemoglobin Oxyhemoglobin Sodium Potassium Chloride Carbon Dioxide BUN Creatinine Glucose POC Glucose 127 H 121 H 113 H Lactic Acid Calcium Phosphorus Magnesium AST ALT Alkaline Phosphatase Lactate Dehydrogenase Troponin T C-Reactive Protein NT-Pro-B Natriuret Pep Total Protein Albumin LDL Cholesterol Direct Vitamin B12 Urine WBC (Auto) Fluid Glucose Fluid Total Protein Vancomycin Trough Crossmatch 12/22/21 12/22/21 12/23/21 04:58 04:58 06:40 WBC 11.5 H RBC 3.43 L Hgb 9.8 L Hct 28.7 L MCV MCH MCHC RDW 18.5 H 17.9 H Plt Count Seg Neuts % (Manual) Lymphocytes % (Manual) Seg Neutrophils # Man Lymphocytes # (Manual) Monocytes # (Manual) PT INR D-Dimer ABG pH ABG pO2 ABG HCO3 ABG O2 Saturation ABG Base Excess ABG Hemoglobin Oxyhemoglobin Sodium 130 L Potassium Chloride 97.8 L Carbon Dioxide BUN 31 H Creatinine 0.5 L Glucose 122 H POC Glucose Lactic Acid Calcium 7.9 L Phosphorus Magnesium AST ALT Alkaline Phosphatase Lactate Dehydrogenase Troponin T C-Reactive Protein NT-Pro-B Natriuret Pep Total Protein Albumin LDL Cholesterol Direct Vitamin B12 Urine WBC (Auto) Fluid Glucose Fluid Total Protein Vancomycin Trough Crossmatch 12/23/21 12/23/21 12/24/21 06:40 23:25 04:24 WBC 11.7 H RBC Hgb 9.8 L Hct MCV MCH 26 L MCHC RDW 18.1 H Plt Count Seg Neuts % (Manual) Lymphocytes % (Manual) Seg Neutrophils # Man Lymphocytes # (Manual) Monocytes # (Manual) PT INR D-Dimer ABG pH ABG pO2 ABG HCO3 ABG O2 Saturation ABG Base Excess ABG Hemoglobin Oxyhemoglobin Sodium 136 L Potassium Chloride Carbon Dioxide BUN 27 H Creatinine 0.4 L Glucose 107 H POC Glucose 110 H Lactic Acid Calcium 8.1 L Phosphorus Magnesium AST ALT Alkaline Phosphatase Lactate Dehydrogenase Troponin T C-Reactive Protein NT-Pro-B Natriuret Pep Total Protein Albumin LDL Cholesterol Direct Vitamin B12 Urine WBC (Auto) Fluid Glucose Fluid Total Protein Vancomycin Trough Crossmatch 12/24/21 12/24/21 12/24/21 04:24 11:08 15:45 WBC RBC Hgb Hct MCV MCH MCHC RDW Plt Count Seg Neuts % (Manual) Lymphocytes % (Manual) Seg Neutrophils # Man Lymphocytes # (Manual) Monocytes # (Manual) PT INR D-Dimer ABG pH ABG pO2 ABG HCO3 ABG O2 Saturation ABG Base Excess ABG Hemoglobin Oxyhemoglobin Sodium 132 L Potassium Chloride Carbon Dioxide BUN 27 H Creatinine 0.3 L Glucose 108 H POC Glucose 116 H 107 H Lactic Acid Calcium Phosphorus Magnesium AST ALT Alkaline Phosphatase Lactate Dehydrogenase Troponin T C-Reactive Protein NT-Pro-B Natriuret Pep Total Protein Albumin LDL Cholesterol Direct Vitamin B12 Urine WBC (Auto) Fluid Glucose Fluid Total Protein Vancomycin Trough Crossmatch 12/24/21 12/25/21 12/25/21 23:43 05:29 11:48 WBC RBC Hgb Hct MCV MCH MCHC RDW Plt Count Seg Neuts % (Manual) Lymphocytes % (Manual) Seg Neutrophils # Man Lymphocytes # (Manual) Monocytes # (Manual) PT INR D-Dimer ABG pH ABG pO2 ABG HCO3 ABG O2 Saturation ABG Base Excess ABG Hemoglobin Oxyhemoglobin Sodium Potassium Chloride Carbon Dioxide BUN Creatinine Glucose POC Glucose 123 H 107 H 119 H Lactic Acid Calcium Phosphorus Magnesium AST ALT Alkaline Phosphatase Lactate Dehydrogenase Troponin T C-Reactive Protein NT-Pro-B Natriuret Pep Total Protein Albumin LDL Cholesterol Direct Vitamin B12 Urine WBC (Auto) Fluid Glucose Fluid Total Protein Vancomycin Trough Crossmatch 12/26/21 12/26/21 12/26/21 00:06 05:56 07:51 WBC 11.4 H RBC 3.40 L Hgb 9.3 L Hct 28.3 L MCV MCH 27 L MCHC RDW 18.2 H Plt Count Seg Neuts % (Manual) Lymphocytes % (Manual) Seg Neutrophils # Man Lymphocytes # (Manual) Monocytes # (Manual) PT INR D-Dimer ABG pH ABG pO2 ABG HCO3 ABG O2 Saturation ABG Base Excess ABG Hemoglobin Oxyhemoglobin Sodium Potassium Chloride Carbon Dioxide BUN Creatinine Glucose POC Glucose 133 H 107 H Lactic Acid Calcium Phosphorus Magnesium AST ALT Alkaline Phosphatase Lactate Dehydrogenase Troponin T C-Reactive Protein NT-Pro-B Natriuret Pep Total Protein Albumin LDL Cholesterol Direct Vitamin B12 Urine WBC (Auto) Fluid Glucose Fluid Total Protein Vancomycin Trough Crossmatch 12/26/21 12/26/21 12/26/21 07:51 11:43 17:06 WBC RBC Hgb Hct MCV MCH MCHC RDW Plt Count Seg Neuts % (Manual) Lymphocytes % (Manual) Seg Neutrophils # Man Lymphocytes # (Manual) Monocytes # (Manual) PT INR D-Dimer ABG pH ABG pO2 ABG HCO3 ABG O2 Saturation ABG Base Excess ABG Hemoglobin Oxyhemoglobin Sodium 136 L Potassium Chloride Carbon Dioxide BUN 25 H Creatinine 0.3 L Glucose 131 H POC Glucose 119 H 128 H Lactic Acid Calcium Phosphorus Magnesium AST ALT Alkaline Phosphatase Lactate Dehydrogenase Troponin T C-Reactive Protein NT-Pro-B Natriuret Pep Total Protein Albumin LDL Cholesterol Direct Vitamin B12 Urine WBC (Auto) Fluid Glucose Fluid Total Protein Vancomycin Trough Crossmatch 12/28/21 12/28/21 12/29/21 09:05 09:05 04:40 WBC RBC 3.19 L Hgb 8.9 L Hct 26.4 L MCV MCH 27 L MCHC RDW 18.4 H 17.9 H Plt Count Seg Neuts % (Manual) Lymphocytes % (Manual) Seg Neutrophils # Man Lymphocytes # (Manual) Monocytes # (Manual) PT INR D-Dimer ABG pH ABG pO2 ABG HCO3 ABG O2 Saturation ABG Base Excess ABG Hemoglobin Oxyhemoglobin Sodium 135 L Potassium Chloride 97.8 L Carbon Dioxide BUN 18 H Creatinine 0.3 L Glucose POC Glucose Lactic Acid Calcium Phosphorus Magnesium AST ALT Alkaline Phosphatase Lactate Dehydrogenase Troponin T C-Reactive Protein NT-Pro-B Natriuret Pep Total Protein Albumin LDL Cholesterol Direct Vitamin B12 Urine WBC (Auto) Fluid Glucose Fluid Total Protein Vancomycin Trough Crossmatch 12/29/21 12/29/21 12/30/21 04:40 12:47 04:05 WBC RBC 3.29 L Hgb 8.7 L Hct 27.6 L MCV MCH 27 L MCHC RDW 17.6 H Plt Count Seg Neuts % (Manual) Lymphocytes % (Manual) Seg Neutrophils # Man Lymphocytes # (Manual) Monocytes # (Manual) PT INR D-Dimer ABG pH ABG pO2 ABG HCO3 ABG O2 Saturation ABG Base Excess ABG Hemoglobin Oxyhemoglobin Sodium 136 L Potassium Chloride Carbon Dioxide BUN Creatinine 0.3 L Glucose POC Glucose 67 L Lactic Acid Calcium 8.3 L Phosphorus Magnesium AST ALT Alkaline Phosphatase Lactate Dehydrogenase Troponin T C-Reactive Protein NT-Pro-B Natriuret Pep Total Protein Albumin LDL Cholesterol Direct Vitamin B12 Urine WBC (Auto) Fluid Glucose Fluid Total Protein Vancomycin Trough Crossmatch 12/30/21 12/31/21 12/31/21 04:05 00:07 04:00 WBC RBC 3.05 L Hgb 8.5 L Hct 25.5 L MCV MCH MCHC RDW 18.2 H Plt Count Seg Neuts % (Manual) Lymphocytes % (Manual) Seg Neutrophils # Man Lymphocytes # (Manual) Monocytes # (Manual) PT INR D-Dimer ABG pH ABG pO2 ABG HCO3 ABG O2 Saturation ABG Base Excess ABG Hemoglobin Oxyhemoglobin Sodium 136 L Potassium 3.5 L Chloride Carbon Dioxide BUN Creatinine 0.4 L Glucose POC Glucose 139 H Lactic Acid Calcium Phosphorus Magnesium 1.50 L AST ALT Alkaline Phosphatase Lactate Dehydrogenase Troponin T C-Reactive Protein NT-Pro-B Natriuret Pep Total Protein Albumin LDL Cholesterol Direct Vitamin B12 Urine WBC (Auto) Fluid Glucose Fluid Total Protein Vancomycin Trough Crossmatch 12/31/21 12/31/21 12/31/21 04:00 04:52 11:23 WBC RBC Hgb Hct MCV MCH MCHC RDW Plt Count Seg Neuts % (Manual) Lymphocytes % (Manual) Seg Neutrophils # Man Lymphocytes # (Manual) Monocytes # (Manual) PT INR D-Dimer ABG pH ABG pO2 ABG HCO3 ABG O2 Saturation ABG Base Excess ABG Hemoglobin Oxyhemoglobin Sodium Potassium Chloride Carbon Dioxide BUN 19 H Creatinine 0.4 L Glucose 116 H POC Glucose 121 H 116 H Lactic Acid Calcium Phosphorus Magnesium AST ALT Alkaline Phosphatase Lactate Dehydrogenase Troponin T C-Reactive Protein NT-Pro-B Natriuret Pep Total Protein Albumin LDL Cholesterol Direct Vitamin B12 Urine WBC (Auto) Fluid Glucose Fluid Total Protein Vancomycin Trough Crossmatch 12/31/21 01/01/22 01/01/22 17:42 04:31 04:31 WBC RBC 2.83 L Hgb 7.7 L Hct 23.2 L MCV MCH 27 L MCHC RDW 18.3 H Plt Count Seg Neuts % (Manual) Lymphocytes % (Manual) Seg Neutrophils # Man Lymphocytes # (Manual) Monocytes # (Manual) PT INR D-Dimer ABG pH ABG pO2 ABG HCO3 ABG O2 Saturation ABG Base Excess ABG Hemoglobin Oxyhemoglobin Sodium 135 L Potassium Chloride 97.7 L Carbon Dioxide BUN 21 H Creatinine 0.5 L Glucose 127 H POC Glucose 107 H Lactic Acid Calcium 8.0 L Phosphorus Magnesium AST ALT Alkaline Phosphatase Lactate Dehydrogenase Troponin T C-Reactive Protein NT-Pro-B Natriuret Pep Total Protein Albumin LDL Cholesterol Direct Vitamin B12 Urine WBC (Auto) Fluid Glucose Fluid Total Protein Vancomycin Trough Crossmatch 01/01/22 01/01/22 01/01/22 05:24 11:25 18:11 WBC RBC Hgb Hct MCV MCH MCHC RDW Plt Count Seg Neuts % (Manual) Lymphocytes % (Manual) Seg Neutrophils # Man Lymphocytes # (Manual) Monocytes # (Manual) PT INR D-Dimer ABG pH ABG pO2 ABG HCO3 ABG O2 Saturation ABG Base Excess ABG Hemoglobin Oxyhemoglobin Sodium Potassium Chloride Carbon Dioxide BUN Creatinine Glucose POC Glucose 124 H 140 H 144 H Lactic Acid Calcium Phosphorus Magnesium AST ALT Alkaline Phosphatase Lactate Dehydrogenase Troponin T C-Reactive Protein NT-Pro-B Natriuret Pep Total Protein Albumin LDL Cholesterol Direct Vitamin B12 Urine WBC (Auto) Fluid Glucose Fluid Total Protein Vancomycin Trough Crossmatch 01/01/22 01/02/22 01/02/22 23:26 04:01 04:01 WBC RBC 2.57 L Hgb 7.1 L Hct 21.5 L MCV MCH MCHC RDW 18.1 H Plt Count Seg Neuts % (Manual) Lymphocytes % (Manual) Seg Neutrophils # Man Lymphocytes # (Manual) Monocytes # (Manual) PT INR D-Dimer ABG pH ABG pO2 ABG HCO3 ABG O2 Saturation ABG Base Excess ABG Hemoglobin Oxyhemoglobin Sodium 131 L Potassium 3.5 L Chloride 94.8 L Carbon Dioxide BUN 27 H Creatinine Glucose 121 H POC Glucose 121 H Lactic Acid Calcium Phosphorus Magnesium AST ALT Alkaline Phosphatase Lactate Dehydrogenase Troponin T C-Reactive Protein NT-Pro-B Natriuret Pep Total Protein Albumin LDL Cholesterol Direct Vitamin B12 Urine WBC (Auto) Fluid Glucose Fluid Total Protein Vancomycin Trough Crossmatch 01/02/22 01/02/22 01/02/22 05:30 11:10 16:08 WBC RBC Hgb Hct MCV MCH MCHC RDW Plt Count Seg Neuts % (Manual) Lymphocytes % (Manual) Seg Neutrophils # Man Lymphocytes # (Manual) Monocytes # (Manual) PT INR D-Dimer ABG pH ABG pO2 ABG HCO3 ABG O2 Saturation ABG Base Excess ABG Hemoglobin Oxyhemoglobin Sodium Potassium Chloride Carbon Dioxide BUN Creatinine Glucose POC Glucose 124 H 117 H 130 H Lactic Acid Calcium Phosphorus Magnesium AST ALT Alkaline Phosphatase Lactate Dehydrogenase Troponin T C-Reactive Protein NT-Pro-B Natriuret Pep Total Protein Albumin LDL Cholesterol Direct Vitamin B12 Urine WBC (Auto) Fluid Glucose Fluid Total Protein Vancomycin Trough Crossmatch 01/02/22 01/02/22 01/03/22 17:30 23:26 04:53 WBC RBC 2.82 L Hgb 7.7 L Hct 23.4 L MCV MCH 27 L MCHC RDW 18.0 H Plt Count Seg Neuts % (Manual) Lymphocytes % (Manual) Seg Neutrophils # Man Lymphocytes # (Manual) Monocytes # (Manual) PT INR D-Dimer ABG pH ABG pO2 ABG HCO3 ABG O2 Saturation ABG Base Excess ABG Hemoglobin Oxyhemoglobin Sodium Potassium Chloride Carbon Dioxide BUN Creatinine Glucose POC Glucose 114 H Lactic Acid Calcium Phosphorus Magnesium AST ALT Alkaline Phosphatase Lactate Dehydrogenase Troponin T C-Reactive Protein NT-Pro-B Natriuret Pep Total Protein Albumin LDL Cholesterol Direct Vitamin B12 Urine WBC (Auto) Fluid Glucose Fluid Total Protein Vancomycin Trough 22.8 H Crossmatch 01/03/22 01/03/22 01/03/22 04:53 06:23 17:35 WBC RBC Hgb Hct MCV MCH MCHC RDW Plt Count Seg Neuts % (Manual) Lymphocytes % (Manual) Seg Neutrophils # Man Lymphocytes # (Manual) Monocytes # (Manual) PT INR D-Dimer ABG pH ABG pO2 ABG HCO3 ABG O2 Saturation ABG Base Excess ABG Hemoglobin Oxyhemoglobin Sodium 133 L Potassium Chloride 96.2 L Carbon Dioxide BUN 30 H Creatinine Glucose 107 H POC Glucose 122 H 107 H Lactic Acid Calcium Phosphorus Magnesium AST ALT Alkaline Phosphatase Lactate Dehydrogenase Troponin T C-Reactive Protein NT-Pro-B Natriuret Pep Total Protein Albumin LDL Cholesterol Direct Vitamin B12 Urine WBC (Auto) Fluid Glucose Fluid Total Protein Vancomycin Trough Crossmatch 01/04/22 01/04/22 01/04/22 04:00 12:32 16:45 WBC RBC Hgb Hct MCV MCH MCHC RDW Plt Count Seg Neuts % (Manual) Lymphocytes % (Manual) Seg Neutrophils # Man Lymphocytes # (Manual) Monocytes # (Manual) PT INR D-Dimer ABG pH ABG pO2 ABG HCO3 ABG O2 Saturation ABG Base Excess ABG Hemoglobin Oxyhemoglobin Sodium 132 L Potassium Chloride 92.8 L Carbon Dioxide BUN 30 H Creatinine Glucose 115 H POC Glucose 111 H 111 H Lactic Acid Calcium Phosphorus Magnesium 1.60 L AST ALT Alkaline Phosphatase Lactate Dehydrogenase Troponin T C-Reactive Protein NT-Pro-B Natriuret Pep Total Protein Albumin LDL Cholesterol Direct Vitamin B12 Urine WBC (Auto) Fluid Glucose Fluid Total Protein Vancomycin Trough Crossmatch 01/05/22 01/05/22 01/05/22 04:30 04:30 17:04 WBC RBC 3.11 L Hgb 8.4 L Hct 25.5 L MCV MCH 27 L MCHC RDW 17.6 H Plt Count Seg Neuts % (Manual) Lymphocytes % (Manual) Seg Neutrophils # Man Lymphocytes # (Manual) Monocytes # (Manual) PT INR D-Dimer ABG pH ABG pO2 ABG HCO3 ABG O2 Saturation ABG Base Excess ABG Hemoglobin Oxyhemoglobin Sodium 135 L Potassium Chloride 93.6 L Carbon Dioxide BUN 29 H Creatinine Glucose POC Glucose 67 L Lactic Acid Calcium Phosphorus Magnesium AST ALT Alkaline Phosphatase Lactate Dehydrogenase Troponin T C-Reactive Protein NT-Pro-B Natriuret Pep Total Protein Albumin LDL Cholesterol Direct Vitamin B12 Urine WBC (Auto) Fluid Glucose Fluid Total Protein Vancomycin Trough Crossmatch 01/05/22 01/06/22 01/06/22 23:27 04:06 04:06 WBC RBC 2.89 L Hgb 7.7 L Hct 23.8 L MCV MCH 27 L MCHC RDW 18.0 H Plt Count Seg Neuts % (Manual) Lymphocytes % (Manual) Seg Neutrophils # Man Lymphocytes # (Manual) Monocytes # (Manual) PT 16.9 H INR 1.23 H D-Dimer ABG pH ABG pO2 ABG HCO3 ABG O2 Saturation ABG Base Excess ABG Hemoglobin Oxyhemoglobin Sodium Potassium Chloride Carbon Dioxide BUN Creatinine Glucose POC Glucose 110 H Lactic Acid Calcium Phosphorus Magnesium AST ALT Alkaline Phosphatase Lactate Dehydrogenase Troponin T C-Reactive Protein NT-Pro-B Natriuret Pep Total Protein Albumin LDL Cholesterol Direct Vitamin B12 Urine WBC (Auto) Fluid Glucose Fluid Total Protein Vancomycin Trough Crossmatch 01/06/22 01/06/22 01/06/22 04:06 13:40 23:41 WBC RBC Hgb Hct MCV MCH MCHC RDW Plt Count Seg Neuts % (Manual) Lymphocytes % (Manual) Seg Neutrophils # Man Lymphocytes # (Manual) Monocytes # (Manual) PT INR D-Dimer ABG pH ABG pO2 ABG HCO3 ABG O2 Saturation ABG Base Excess ABG Hemoglobin Oxyhemoglobin Sodium 132 L Potassium Chloride 92.3 L Carbon Dioxide BUN 26 H Creatinine Glucose 111 H POC Glucose 120 H Lactic Acid Calcium Phosphorus Magnesium AST ALT Alkaline Phosphatase Lactate Dehydrogenase Troponin T C-Reactive Protein NT-Pro-B Natriuret Pep Total Protein Albumin LDL Cholesterol Direct Vitamin B12 Urine WBC (Auto) Fluid Glucose 96 H Fluid Total Protein < 3.0 L Vancomycin Trough Crossmatch 01/07/22 01/07/22 01/07/22 05:20 11:30 17:00 WBC RBC Hgb Hct MCV MCH MCHC RDW Plt Count Seg Neuts % (Manual) Lymphocytes % (Manual) Seg Neutrophils # Man Lymphocytes # (Manual) Monocytes # (Manual) PT INR D-Dimer ABG pH ABG pO2 ABG HCO3 ABG O2 Saturation ABG Base Excess ABG Hemoglobin Oxyhemoglobin Sodium Potassium Chloride Carbon Dioxide BUN Creatinine Glucose POC Glucose 111 H 113 H 121 H Lactic Acid Calcium Phosphorus Magnesium AST ALT Alkaline Phosphatase Lactate Dehydrogenase Troponin T C-Reactive Protein NT-Pro-B Natriuret Pep Total Protein Albumin LDL Cholesterol Direct Vitamin B12 Urine WBC (Auto) Fluid Glucose Fluid Total Protein Vancomycin Trough Crossmatch 01/07/22 01/08/22 01/08/22 23:41 11:26 16:23 WBC RBC Hgb Hct MCV MCH MCHC RDW Plt Count Seg Neuts % (Manual) Lymphocytes % (Manual) Seg Neutrophils # Man Lymphocytes # (Manual) Monocytes # (Manual) PT INR D-Dimer ABG pH ABG pO2 ABG HCO3 ABG O2 Saturation ABG Base Excess ABG Hemoglobin Oxyhemoglobin Sodium Potassium Chloride Carbon Dioxide BUN Creatinine Glucose POC Glucose 110 H 129 H 118 H Lactic Acid Calcium Phosphorus Magnesium AST ALT Alkaline Phosphatase Lactate Dehydrogenase Troponin T C-Reactive Protein NT-Pro-B Natriuret Pep Total Protein Albumin LDL Cholesterol Direct Vitamin B12 Urine WBC (Auto) Fluid Glucose Fluid Total Protein Vancomycin Trough Crossmatch 01/09/22 01/10/22 01/10/22 18:13 00:27 04:00 WBC RBC Hgb Hct MCV MCH MCHC RDW Plt Count Seg Neuts % (Manual) Lymphocytes % (Manual) Seg Neutrophils # Man Lymphocytes # (Manual) Monocytes # (Manual) PT INR D-Dimer ABG pH ABG pO2 ABG HCO3 ABG O2 Saturation ABG Base Excess ABG Hemoglobin Oxyhemoglobin Sodium 133 L Potassium Chloride 92.6 L Carbon Dioxide 31 H BUN 29 H Creatinine 0.5 L Glucose 115 H POC Glucose 118 H 111 H Lactic Acid Calcium Phosphorus Magnesium AST ALT Alkaline Phosphatase Lactate Dehydrogenase Troponin T C-Reactive Protein NT-Pro-B Natriuret Pep Total Protein Albumin LDL Cholesterol Direct Vitamin B12 Urine WBC (Auto) Fluid Glucose Fluid Total Protein Vancomycin Trough Crossmatch 01/10/22 01/11/22 01/11/22 05:47 05:10 11:14 WBC RBC Hgb Hct MCV MCH MCHC RDW Plt Count Seg Neuts % (Manual) Lymphocytes % (Manual) Seg Neutrophils # Man Lymphocytes # (Manual) Monocytes # (Manual) PT INR D-Dimer ABG pH ABG pO2 ABG HCO3 ABG O2 Saturation ABG Base Excess ABG Hemoglobin Oxyhemoglobin Sodium Potassium Chloride Carbon Dioxide BUN Creatinine Glucose POC Glucose 106 H 118 H 136 H Lactic Acid Calcium Phosphorus Magnesium AST ALT Alkaline Phosphatase Lactate Dehydrogenase Troponin T C-Reactive Protein NT-Pro-B Natriuret Pep Total Protein Albumin LDL Cholesterol Direct Vitamin B12 Urine WBC (Auto) Fluid Glucose Fluid Total Protein Vancomycin Trough Crossmatch 01/11/22 01/11/22 01/12/22 17:14 23:52 05:39 WBC RBC Hgb Hct MCV MCH MCHC RDW Plt Count Seg Neuts % (Manual) Lymphocytes % (Manual) Seg Neutrophils # Man Lymphocytes # (Manual) Monocytes # (Manual) PT INR D-Dimer ABG pH ABG pO2 ABG HCO3 ABG O2 Saturation ABG Base Excess ABG Hemoglobin Oxyhemoglobin Sodium Potassium Chloride Carbon Dioxide BUN Creatinine Glucose POC Glucose 117 H 110 H 110 H Lactic Acid Calcium Phosphorus Magnesium AST ALT Alkaline Phosphatase Lactate Dehydrogenase Troponin T C-Reactive Protein NT-Pro-B Natriuret Pep Total Protein Albumin LDL Cholesterol Direct Vitamin B12 Urine WBC (Auto) Fluid Glucose Fluid Total Protein Vancomycin Trough Crossmatch 01/13/22 01/13/22 01/14/22 11:15 17:21 05:33 WBC RBC Hgb Hct MCV MCH MCHC RDW Plt Count Seg Neuts % (Manual) Lymphocytes % (Manual) Seg Neutrophils # Man Lymphocytes # (Manual) Monocytes # (Manual) PT INR D-Dimer ABG pH ABG pO2 ABG HCO3 ABG O2 Saturation ABG Base Excess ABG Hemoglobin Oxyhemoglobin Sodium Potassium Chloride Carbon Dioxide BUN Creatinine Glucose POC Glucose 113 H 121 H 136 H Lactic Acid Calcium Phosphorus Magnesium AST ALT Alkaline Phosphatase Lactate Dehydrogenase Troponin T C-Reactive Protein NT-Pro-B Natriuret Pep Total Protein Albumin LDL Cholesterol Direct Vitamin B12 Urine WBC (Auto) Fluid Glucose Fluid Total Protein Vancomycin Trough Crossmatch 01/14/22 01/15/22 01/15/22 11:28 00:13 05:24 WBC RBC Hgb Hct MCV MCH MCHC RDW Plt Count Seg Neuts % (Manual) Lymphocytes % (Manual) Seg Neutrophils # Man Lymphocytes # (Manual) Monocytes # (Manual) PT INR D-Dimer ABG pH ABG pO2 ABG HCO3 ABG O2 Saturation ABG Base Excess ABG Hemoglobin Oxyhemoglobin Sodium Potassium Chloride Carbon Dioxide BUN Creatinine Glucose POC Glucose 117 H 109 H 117 H Lactic Acid Calcium Phosphorus Magnesium AST ALT Alkaline Phosphatase Lactate Dehydrogenase Troponin T C-Reactive Protein NT-Pro-B Natriuret Pep Total Protein Albumin LDL Cholesterol Direct Vitamin B12 Urine WBC (Auto) Fluid Glucose Fluid Total Protein Vancomycin Trough Crossmatch 01/15/22 01/15/22 01/15/22 11:38 14:36 17:05 WBC RBC 3.11 L Hgb 8.4 L Hct 25.7 L MCV MCH 27 L MCHC RDW 17.2 H Plt Count Seg Neuts % (Manual) 82.0 H Lymphocytes % (Manual) 11.0 L Seg Neutrophils # Man 8.8 H Lymphocytes # (Manual) Monocytes # (Manual) PT INR D-Dimer ABG pH ABG pO2 ABG HCO3 ABG O2 Saturation ABG Base Excess ABG Hemoglobin Oxyhemoglobin Sodium Potassium Chloride Carbon Dioxide BUN Creatinine Glucose POC Glucose 107 H 108 H Lactic Acid Calcium Phosphorus Magnesium AST ALT Alkaline Phosphatase Lactate Dehydrogenase Troponin T C-Reactive Protein NT-Pro-B Natriuret Pep Total Protein Albumin LDL Cholesterol Direct Vitamin B12 Urine WBC (Auto) Fluid Glucose Fluid Total Protein Vancomycin Trough Crossmatch 01/15/22 01/15/22 01/15/22 21:07 Unknown Unknown WBC RBC 2.97 L Hgb 8.0 L Hct 24.3 L MCV MCH 27 L MCHC RDW 17.2 H Plt Count Seg Neuts % (Manual) Lymphocytes % (Manual) Seg Neutrophils # Man Lymphocytes # (Manual) Monocytes # (Manual) PT INR D-Dimer ABG pH ABG pO2 ABG HCO3 ABG O2 Saturation ABG Base Excess ABG Hemoglobin Oxyhemoglobin Sodium 131 L Potassium Chloride 93.1 L Carbon Dioxide BUN 27 H Creatinine Glucose 110 H POC Glucose Lactic Acid Calcium 8.3 L Phosphorus Magnesium AST ALT Alkaline Phosphatase Lactate Dehydrogenase Troponin T 0.088 H C-Reactive Protein NT-Pro-B Natriuret Pep Total Protein Albumin LDL Cholesterol Direct 44 L Vitamin B12 Urine WBC (Auto) Fluid Glucose Fluid Total Protein Vancomycin Trough Crossmatch 01/15/22 01/16/22 01/16/22 Unknown 05:21 12:59 WBC RBC Hgb Hct MCV MCH MCHC RDW Plt Count Seg Neuts % (Manual) Lymphocytes % (Manual) Seg Neutrophils # Man Lymphocytes # (Manual) Monocytes # (Manual) PT INR D-Dimer ABG pH ABG pO2 ABG HCO3 ABG O2 Saturation ABG Base Excess ABG Hemoglobin Oxyhemoglobin Sodium 134 L 134 L Potassium 3.4 L Chloride 93.9 L 95.4 L Carbon Dioxide BUN 26 H 24 H Creatinine Glucose 168 H POC Glucose 159 H Lactic Acid Calcium 8.1 L Phosphorus Magnesium AST ALT Alkaline Phosphatase Lactate Dehydrogenase Troponin T 0.078 H C-Reactive Protein NT-Pro-B Natriuret Pep Total Protein Albumin LDL Cholesterol Direct Vitamin B12 Urine WBC (Auto) Fluid Glucose Fluid Total Protein Vancomycin Trough Crossmatch 01/16/22 01/17/22 01/17/22 23:22 05:20 14:24 WBC RBC Hgb Hct MCV MCH MCHC RDW Plt Count Seg Neuts % (Manual) Lymphocytes % (Manual) Seg Neutrophils # Man Lymphocytes # (Manual) Monocytes # (Manual) PT INR D-Dimer ABG pH ABG pO2 55.0 L ABG HCO3 29.5 H ABG O2 Saturation 87.8 L ABG Base Excess 4.5 H ABG Hemoglobin 9.3 L Oxyhemoglobin 86.1 L Sodium Potassium Chloride Carbon Dioxide BUN Creatinine Glucose POC Glucose 113 H 111 H Lactic Acid Calcium Phosphorus Magnesium AST ALT Alkaline Phosphatase Lactate Dehydrogenase Troponin T C-Reactive Protein NT-Pro-B Natriuret Pep Total Protein Albumin LDL Cholesterol Direct Vitamin B12 Urine WBC (Auto) Fluid Glucose Fluid Total Protein Vancomycin Trough Crossmatch 01/17/22 01/18/22 01/18/22 17:14 05:39 11:53 WBC RBC Hgb Hct MCV MCH MCHC RDW Plt Count Seg Neuts % (Manual) Lymphocytes % (Manual) Seg Neutrophils # Man Lymphocytes # (Manual) Monocytes # (Manual) PT INR D-Dimer ABG pH ABG pO2 ABG HCO3 ABG O2 Saturation ABG Base Excess ABG Hemoglobin Oxyhemoglobin Sodium Potassium Chloride Carbon Dioxide BUN Creatinine Glucose POC Glucose 126 H 108 H 113 H Lactic Acid Calcium Phosphorus Magnesium AST ALT Alkaline Phosphatase Lactate Dehydrogenase Troponin T C-Reactive Protein NT-Pro-B Natriuret Pep Total Protein Albumin LDL Cholesterol Direct Vitamin B12 Urine WBC (Auto) Fluid Glucose Fluid Total Protein Vancomycin Trough Crossmatch 01/18/22 01/19/22 01/19/22 12:50 00:04 04:50 WBC RBC 3.14 L Hgb 8.4 L Hct 26.0 L MCV MCH 27 L MCHC RDW 18.2 H Plt Count Seg Neuts % (Manual) Lymphocytes % (Manual) Seg Neutrophils # Man Lymphocytes # (Manual) Monocytes # (Manual) PT INR D-Dimer ABG pH ABG pO2 112.3 H ABG HCO3 30.9 H ABG O2 Saturation ABG Base Excess 5.8 H ABG Hemoglobin 8.8 L Oxyhemoglobin Sodium Potassium Chloride Carbon Dioxide BUN Creatinine Glucose POC Glucose 115 H Lactic Acid Calcium Phosphorus Magnesium AST ALT Alkaline Phosphatase Lactate Dehydrogenase Troponin T C-Reactive Protein NT-Pro-B Natriuret Pep Total Protein Albumin LDL Cholesterol Direct Vitamin B12 Urine WBC (Auto) Fluid Glucose Fluid Total Protein Vancomycin Trough Crossmatch 01/19/22 01/19/22 01/19/22 04:50 11:51 20:45 WBC RBC Hgb Hct MCV MCH MCHC RDW Plt Count Seg Neuts % (Manual) Lymphocytes % (Manual) Seg Neutrophils # Man Lymphocytes # (Manual) Monocytes # (Manual) PT INR D-Dimer ABG pH ABG pO2 95.2 H ABG HCO3 29.8 H ABG O2 Saturation ABG Base Excess 4.3 H ABG Hemoglobin 8.0 L Oxyhemoglobin Sodium 134 L Potassium Chloride 95.4 L Carbon Dioxide BUN 28 H Creatinine Glucose POC Glucose 111 H Lactic Acid Calcium Phosphorus Magnesium AST ALT Alkaline Phosphatase Lactate Dehydrogenase Troponin T C-Reactive Protein NT-Pro-B Natriuret Pep Total Protein Albumin LDL Cholesterol Direct Vitamin B12 Urine WBC (Auto) Fluid Glucose Fluid Total Protein Vancomycin Trough Crossmatch 01/20/22 01/21/22 01/22/22 11:43 23:32 11:12 WBC RBC Hgb Hct MCV MCH MCHC RDW Plt Count Seg Neuts % (Manual) Lymphocytes % (Manual) Seg Neutrophils # Man Lymphocytes # (Manual) Monocytes # (Manual) PT INR D-Dimer ABG pH ABG pO2 ABG HCO3 ABG O2 Saturation ABG Base Excess ABG Hemoglobin Oxyhemoglobin Sodium Potassium Chloride Carbon Dioxide BUN Creatinine Glucose POC Glucose 118 H 113 H 110 H Lactic Acid Calcium Phosphorus Magnesium AST ALT Alkaline Phosphatase Lactate Dehydrogenase Troponin T C-Reactive Protein NT-Pro-B Natriuret Pep Total Protein Albumin LDL Cholesterol Direct Vitamin B12 Urine WBC (Auto) Fluid Glucose Fluid Total Protein Vancomycin Trough Crossmatch 01/22/22 01/23/22 01/23/22 17:54 09:36 11:49 WBC RBC Hgb Hct MCV MCH MCHC RDW Plt Count Seg Neuts % (Manual) Lymphocytes % (Manual) Seg Neutrophils # Man Lymphocytes # (Manual) Monocytes # (Manual) PT INR D-Dimer ABG pH ABG pO2 ABG HCO3 ABG O2 Saturation ABG Base Excess ABG Hemoglobin Oxyhemoglobin Sodium Potassium Chloride Carbon Dioxide BUN Creatinine Glucose POC Glucose 115 H 194 H Lactic Acid Calcium Phosphorus Magnesium AST ALT Alkaline Phosphatase Lactate Dehydrogenase Troponin T C-Reactive Protein NT-Pro-B Natriuret Pep Total Protein Albumin LDL Cholesterol Direct Vitamin B12 Urine WBC (Auto) 16.0 H Fluid Glucose Fluid Total Protein Vancomycin Trough Crossmatch 01/23/22 11:50 WBC RBC Hgb Hct MCV MCH MCHC RDW Plt Count Seg Neuts % (Manual) Lymphocytes % (Manual) Seg Neutrophils # Man Lymphocytes # (Manual) Monocytes # (Manual) PT INR D-Dimer ABG pH 7.310 L ABG pO2 43.9 L ABG HCO3 28.0 H ABG O2 Saturation 70.8 L ABG Base Excess ABG Hemoglobin 9.3 L Oxyhemoglobin 69.2 L Sodium Potassium Chloride Carbon Dioxide BUN Creatinine Glucose POC Glucose Lactic Acid Calcium Phosphorus Magnesium AST ALT Alkaline Phosphatase Lactate Dehydrogenase Troponin T C-Reactive Protein NT-Pro-B Natriuret Pep Total Protein Albumin LDL Cholesterol Direct Vitamin B12 Urine WBC (Auto) Fluid Glucose Fluid Total Protein Vancomycin Trough Crossmatch Allied health notes reviewed: nursing
[2022-01-23] MEDS: GABAPENTIN 500 MG/10 ML ORAL LIQD FEEDTUBE SCH (17:47)
[2022-01-23] MEDS: traZODone 50 MG TAB PO SCH (21:53)
[2022-01-23] MEDS: MELATONIN 5 MG TAB PO SCH (21:54)
[2022-01-24] MEDS: METOPROLOL TARTRATE 25 MG TAB FEEDTUBE SCH ×3 (01:01→21:55)
[2022-01-24] MEDS: DOCUSATE SODIUM 100 MG/10 ML ORAL LIQD FEEDTUBE SCH ×3 (01:01→21:56)
[2022-01-24] MEDS: PRAVASTATIN 20 MG TAB FEEDTUBE SCH ×2 (01:02→21:56)
[2022-01-24] MEDS: SUCRALFATE 1 GM/10 ML ORAL LIQD FEEDTUBE SCH ×4 (01:09→18:10)
[2022-01-24] MEDS: SENNOSIDES ORAL LIQD 8.8 MG/5 ML ORAL LIQD FEEDTUBE SCH ×3 (01:10→21:56)
[2022-01-24] MEDS: ALPRAZolam 0.5 MG TAB FEEDTUBE PRN ×2 (04:43→19:53)
[2022-01-24] MEDS: LEVOTHYROXINE 125 MCG TAB FEEDTUBE SCH ×3 (06:23→20:11)
--- NOTE | 2022-01-24 07:22 | Progress Note ---
Assessment and Plan Assessment and plan: This is an 82-year-old female with DM, HTN , CHB s/p PPM, CAD s/p PCI and arthritis who presented to the emergency department on 11/04 for shortness of breath ongoing for the past 3 days, cough and according to family a fever of 102.2. Upon arrival of EMS patient was found to be tachypneic and hypoxic with SPO2 of 76% on room air which later improved to 88% on nonrebreather. Work-up in the emergency department included a CXR which showed bilateral interstitial pulmonary edema with bilateral pleural effusions and bibasilar opacities, leukocytosis and anemia with a hemoglobin of 6.1. Patient was admitted to the hospitalist service with acute anemia, acute hypoxic respiratory failure, bilateral pneumonia and COVID-19 PUI with consults to pulmonology, infectious disease and later cardiology. Patient was eventually intubated in the emergency department on 11/06. Hospital Course to date: 11/04/2021: Empiric therapy with iv levaquin/vancomycin. COVID PCR pending. Will consult ID. PCCM consulted, will follow recs. Hypotensive this AM, ordered bolus and fluids at 150 cc/hr. May require pressor support if bp does not improve. 11/05/2021: GBS on bcx +, currently on rocephin IV. Currently on bipap due to respiratory distress overnight. Worsening BL opacities on CXR. May be volume overload vs pneumonia. Unfortunately bp too low for lasix at this point. WIll continue levophed and bipap. Once able to tolerate, may do trial of albumin/lasix. Call attempt made to Niraj, no response. Will try again tomorrow to update. 11/06/2021: Decompensated overnight requiring intubation. CXR shows worsening interstitial infiltrates. Currenlty on dopamine, levophed, vasopressin. PICC line ordered. Advised RN to place gamble for I/O monitoring. Would benefit from diuresis but very volume overloaded. Prognosis guarded 11/08: Off sedation this am, remains unresponsive only grimace to pain. Hold all sedatives agents for now, patient is off pressors this am. Hypernatremia from today's lab- D5W X1bag, and low K repleted, repeat lab in the am. Severe constipation also noted from KUB, BR added. 11/09: Sudden SPO2 drop in the 60s this am. Patient was manually bagged and deep suctioned. Patient is currently stable on the vent, repeat CXR with no significant change. D/w CCM Mucomyst and brochodilator added. Patient mentation is unchanged, continue to hold off on sedative agents. Neurology consulted. 11/10: Acute DVT noted on bilateral lower extremity Doppler ultrasound therefore she was started on Lovenox treatment dose. Failed SBT. Hypernatremia and hyperchloremia noted, free water flush adjusted. 11/11: Patient noted to be febrile with increasing of the cytosis, UA/BC sent and CXR ordered. ID escalated antibiotics to cefepime. CXR demonstrated mucous plug, bedside bronchoscopy was performed and O ETT was changed over bougie from 6 cm to 7.5. Patient was noted to have a pneumothorax postprocedure and chest tube was placed. Family updated by [facility]. Free water flush increased and will add Jaswant supplementation. 11/12: Patient not noted to follow commands, hypernatremia worsen/persist, increasing free water flush, potassium and magnesium and phosphorus repleted. Hemoglobin noted to be 7./24.5 from 7.03/12 yesterday. We will continue to trend and monitor. Vent changes per [facility]. Repeat CXR showed no residual pneumothorax. Consider waterseal tomorrow. Given persistent leukocytosis antibiotics escalated to cefepime per ID. 11/13: Remains on cefepime and vancomycin, vent changes per [facility]. Anemia noted and given 1 unit PRBC. And beta-charleen held in setting of Levophed drip infusing. Remains on fentanyl drip. 11/14: Patient put on CPAP trial by [facility], will continue chest tube until after extubation. Will rest on assist control. CT brain was cancelled by foreign banknote teller trader and reordered. 11/15: Patient removed chest tube overnight. Will obtain cxr. remains on low dose levo. CTH completed with no acute findings. RT to place on CPAP. 11/16: Hypernatremia/hyperchloremia noted on the increase of day water flushes. Anemia noted and ordered PRBC. asked RT to place on cpap but not done yet 11/17: Patient remains on the vent, awake and following commands. H&H stable s/p 2units PRBCs. GI on consult, no intervention at this time. Will continue protonix gtt and serial H&H Q6hrs. Keep patient NPO for now, D5w added for hypernatremia and NPO status. Plan for IVC filter placement today by Vascular. 11/18: Patient is s/p IVC filter. H&H continue to trend down, hbg 6.1 this am, 1 unit of PRBCs ordered. Plan for possible EGD today by GI. Keep patient NPO, continue PPI drip and serial H&H Q6hrs. Electrolytes repleted, repeat lab in the am 11/19: S/p EGD- larger duodenal ulcer noted, see operative note. GI recommendations noted also noted. H&H stable this am. Keep patient on protonix gtt for now. Will keep patient NPO, continue IVF and serial H&H for now. Electrolytes repleted, repeat labs in the am 11/20: Very agitated and restless this am, fentanyl gtt resumed. Patient remains on protonix gtt, H&H remains stable. Will switch protonix gtt to IV BID, continue carafate and okay to resume meds at this time. Will F/u with GI to see if TF can be resumed. Gamble was reinserted overnight for retention. Electrolytes repleted, repeat in the am. Plan for possible PST today for possible extubation per CCM. 11/21: Patient is now on seroquel and patient's home buspar resumed. Patient more calm this morning, fentanyl gtt is off. H&H remains stable and patient is tolerating TF. Patient had a runs of Vtach/PVCs this am, BB added per Cardio. Continue daily PS and wean trial for possible extubation. 11/22: Back on fentanyl gtt overnight , RASS o to -1, following commands. Patient failed PST this am due to increased work of breathing and low SPO2, ABG pending. Patient is also with worsen pitting edema, lasix is still on hold. Will discuss with cardio and CCM to possibly resume lasix. 11/23: MARIA DEL CARMEN overnight. Patient failed PST again this am. Per CCM plan for possible trach and PEG, hold off on IV lasix for now. General surgery consulted and family is aware of possible Trach and PEG. 11/24: Trach/PEG pending this week, continue SBT/SAT as tolerated. No acute events reported overnight. 11/25: Patient was n.p.o. overnight and will remain n.p.o. tonight for trach/PEG tomorrow morning. She failed to support trial again. KUB obtained due to distended belly. 11/26: Patient scheduled for tracheostomy and PEG tube placement today, has been n.p.o. since midnight. No acute events reported overnight. [facility] ordered simethicone scheduled. 11/27: No acute events reported overnight, patient received trach/PEG yesterday. Has been on feedings since last night. Still awaiting LTAC placement. 11/28: Patient magnesium repleted, repeat a.m. labs, SBT 11/29: Patient complains of chest pain but ECG obtained which showed no acute findings, ordered troponin. Patient failed CPAP yesterday and was trialed again today. levophed was restarted but will aggressively wean 11/30: Patient failed SBT. Continue supportive care. Started gabapentin today 12/01: MARIA DEL CARMEN overnight. Continue daily PST. Case management to arrange possible placement 12/02: Report of dark stools overnight, patient is hemodynamically stable. H&H stable, patient is on PPI. Will continue to trend H&H. Continue daily PST as tolerated. Awaiting LTAC vs SNF placement. 12/03: Hypotensive overnight, requiring low dose pressors. S/p X3 days of gentle diurese. Will continue to monitor, wean off pressors as tolerated for MAP of 65. Patient Failed PST yesterday, case management to follow up with insurance for po ssible LTAC placement. Continue daily PST as tolerated. PT eval and treat ordered. 12/04: Increased agitation and anxiety overnight, remains on buspar and seroquel, trazadone added to promote rest. Patient is now working with PT, keep patient engage and awake during the day so she can rest at night. No BM for over 5 days, BR was adjusted. Patient did not tolerate PST again yesterday, continue daily PST as tolerated. Continue to titrate pressor for MAP above 65. Pending possible LTAC placement, case management to arrange. 12/05: Still not getting much rest overnight, will add melatonin for sleep. Continue to engage patient during the day and promote rest at night. TF was held due to concern for possible bleeding, H&H remains stable and stools normal this am. Resume TF and continue PPI and carafate. Remains on low dose levophed, titrate as tolerated. Continue daily PST. Possible LTAC placement, awaiting approval. 12/06: MARIA DEL CARMEN overnight. Patient rested overnight. Continue supportive measures. Daily PST as tolerated. Awaiting possible LTAC placement 12/07: MARIA DEL CARMEN overnight. Plan for Tpiece trial today. Continue current supportive measures. Possible LTAC placement 12/08: Patient placed on pressure support trial again today, started on Xanax, no acute events reported overnight. Awaiting insurance approval for LTAC. 12/09: Levophed discontinued, LTAC transfer denied, started on midodrine and Lasix, ultrasound chest pending, started on Xanax 0.[address] De León updated family at bedside today. Started on Dilaudid every 3 hours as needed. 12/10: Patient placed on CPAP trial this morning, no acute events reported overnight. Will order ultrasound-guided thoracentesis. 12/11: Patient had a thoracentesis today, will decrease Xanax dosage and continue midodrine and diuresing. Patient failed CPAP today. 12/12: Patient not tolerate CPAP trials today, no acute events reported overnight 12/13: No acute events overnight. continue PSV trials as tolerated. Daughter up dated at bedside 12/14: Patient noted to be anemic today, ordered gastric occult. Patient seems to be oversedated therefore Xanax changed to as needed and fentanyl patch discontinued. We will continue to monitor hyponatremia. 12/15: MARIA DEL CARMEN overnight. s/p 1unit of PRBCs, H&H stable this am, no signs of any active bleeding. Continue daily PST as tolerated. Awaiting placement. 12/16: Hypertensive this am, Midodrine decreased. Continue daily PST. MARIA DEL CARMEN overnight 12/17: Patient Hgb dropped to 6 this am, no s/s of any active bleeding, VSS. Patient received 1unit of PRBC, will continue to trend H&H. Patient was pancultured and back on IV Abx due to persistent fevers yesterday. ID is also back on the case. Continue IV Abx per ID and f/u on cultures data for sensitivity. Patient also failed PST yesterday, continue daily PST as tolerated. Electrolytes repleted, repeat labs in the am. 12/18: Patient blood cultures is growing GPC 4 out 4 bottles. PICC line D/Rivas, patient is already on IV Abx-cefepine and Vanc and ID is following. Patient remains hemodynamically stable. Daily PST as tolerated adn PRN Benzo for anxiety. 12/19: MARIA DEL CARMEN overnight. Culture data noted, continue IV Abx per ID. Orders placed for repeat Bculture. Gamble D/C overnight, patient is voiding. Check bladder scan as needed for retention. Patient failed PST again today. Continue daily PST as tolerated. 12/20: Fevers improved, Cultures +MRSA, on Vanco per ID. Repeat 2D Echo to r/o endocarditis. Patient continue to fail PST, PEEP increased to 8 today. Continue pulmonary hygiene and vent wean per CCM. Sodium tab added for hyponatremia. 12/22: Patient on pressure support trial for approximately 4 hours today, midodrine dosage increased due to hypotension. Lasix discontinued. 12/23: Started on a.m. Seroquel dose, midodrine increased to 10 mg 3 times daily, 500 mL normal saline bolus. 12/24: Seroquel dose changed (25 every morning, 75 nightly). updated at bedside by Dr. De León. CPAP trials as tolerated. Continue vancomycin. Awaiting placement. 12/25: Continue CPAP as tolerated, added gasx for distention. Continue supportive care 12/26: Patient failed PSV this AM. no acute events overnight. 12/27: GI re-consulted due to abdominal distention. No acute events reported overnight. CPAP trials as tolerated. Dr. Mckenna will get a KUB to rule out possible obstruction. 12/28: KUB shows no acute process, CXR shows improvement. CPAP trials as tolerated. 12/29: CT Abd/pelvis noted with moderated bilateral pleural effusion, anasarca, and ascites. X1dose of IV lasix administered. D/w CCM and GI orders plan for thora and paracentesis by IR. Will also start patient on aldactone Qday. Patient is tolerating trickle feeds this am, continue TF and BR adjusted for constipation. Plan of care was discussed with patient and her at the bedside. Thorough discussion on patient's overall poor prognosis and that pat ient will most likely be vent dependent. Patient's voiced understanding of the info given. All questions and concerns were voiced at this time. 12/30: Patient did not tolerate thoracentesis in IR yesterday due to change in LOC and hypoxia. Plan for possible bedside thoracentesis and paracentesis today. Patient remains afebrile. Patient required stencil inspector IV abx therapy [id number] left, orders placed for a PICC. Patient remains with sign. Piting edema and anasarca, X1 does of PO Zaroxolyn and 2m of IV lasix given. Electrolytes repleted, repeat lab in the am. 12/31: Tolerated Rt. thoracentesis at the bedside yesterday, 1.4L removed. Patient remains stable on the vent this am, tolerating CPAP today PS dropped to 14. Recent CXR noted, left pleural effusion improved. Patient tolerated gentle diurese yesterday, good urine output reported. D/w CCM hold off on Left thoracentesis today, continue PO Aldactone and additonal zaroxolyn and IV lasix again today. F/u CXR in the am. 01/01: This am CXR noted with worsening bilateral pleural effusion. Patient is stable and tolerating PST this am, however PS is back up to 20 this am. BP is soft this am will hold off on IV diuretic for today, continue PO Aldactone. D/w CCM continue gentle diurese as tolerated. Will reassess in the am. Continue support care. 01/02: MARIA DEL CARMEN overnight. VSS this am, tolerating PST. X1dose of 25% IV Albumin following with 20mg IV Lasix today. Continue daily gentle diurese if hemodynamics tolerate it. Continue to monitor and replace electrolytes as needed 01/03: Abdominal distention and vomiting overnight, 600cc of gastric residual removed, TF held. KUB with no acute abnormality. Reglan added X2days, resume TF, and continue BR. Patient is tolerating PST this am. Hemodynamics remains stable, will continue gentle IV diurese. close monitoring to renal function and electrolytes. 01/04: Tolerating TF, nausea/vomiting resolved, last BM on 01/03. Continue Reglan X1 more day. Patient continue to tolerate PST. D/W CCM continue gentle diurese. F/U CXR in the am. Possible US thoracentesis tomorrow. 01/05: no acute events overnight. scheduled for thoracentesis today but procedure pushed to tomorrow. TF restarted and will be NPO post MN. 01/06: planned thoracentesis today. Working with CM for ltac/snf approval. 01/07: s/p thoracentesis 120 cc appears to have been removed. Pulm recommendations noted, agree with continued diuresis and weaning. Continued planning with CM for ltac/snf placement. 01/08: No new issues. Continue vent weaning per pulmonary. Continuing to work with CM for placement. 01/09: No new issues. Continue vent weaning per pulmonary. Continuing to work with CM for placement. Ordered BMP for tomorrow to check kidney function as patient is currently being diuresed. 01/10: No new issues. Continue vent weaning/diuresis as directed by pulmonary medicine.BMP demonstrates normal renal function and potassium. Sodium and Chloride consistent with prior labs. Will recheck BMP in 2 days. Placement continues to be an issue as patient has been denied at all facilities. Will reasses with CM on wednesday. 01/11: Emesis overnight. Do not suspect that she is obstructed as she had 2 BM reported. Will order Reglan prn, drop TF rate to goal of 30 cc/hr. Will continue to work on placement. 01/12: Per RN patient had reported that she was tired and did not want to persist in her current state of health. D/w patient Niraj at patient bedside and stated that I recommended the patient/family at least talk with hospice to get a better understanding of their care. He was agreeable. I spoke with Ms. Busby who will help set up referral for hospice service so that family can be educated and, if the patient chooses, can pursue this option. 01/13: Continue supportive care. Family discussing about hospice. Continue reinforcement and continue weaning as tolerated. Prognosis is guarded and poor. Patient is clinically stable to transfer to the next level of care has not required any escalation in management. Has been stable on the vent awake alert following commands. 01/14: [id number]. Considering abdominal distention tube feedings hold along with the fact that the patient vomited yesterday. Will obtain a CT abdomen and pelvis to further evaluate placement. Discussed with nursing staff. Awaiting to have a family conversation with the for goals of care discussion again. 01/15: Continue supportive care, tube feed was restarted yesterday and tolerated, will start on simethicone for gas control and management. Patient is clinically stable for all lower level of care and continued weaning from the ventilator to appropriate facility. Family still undecided about goals of care. We will also check labs intermittently. 01/16: Patient today went for Chest tube placement on the right side for recurrent pleural effusion, with the goal of evaluating to see if we can wean off the vent. She has remained on the vent and with some persistent anxiety. she continues to tolerate tube feed. Again poor prognosis discussed with family. 01/17: Status post chest tube, with output of approximately 1880 cc since placement. Will continue to work with pulmonology for vent weaning. 01/18: Only tolerated 1 hr of t piece trial yesterday per RT. Patient PaO2 50s on abg last night. Will continue to work with pulmonary medicine for vent weaning. abg, cbc, bmp, xr chest ordered for am. 01/19: On t piece trial this AM. labs reviewed. CXR reviewed and appears stable with no new changes. AB.42/47.8/112.3/30.9. Will follow pulmonary recommendations and plan to continue to wean off of vent. 01/20: Per CM, [facility] declined patient admission as there are T stated the patient was not amenable from the vent. Yesterday patient had tolerated T-piece trial for approximately 12 hours. Today patient only tolerated for 45 minutes. Had desatted and stated that she was in pain during today's trial. Output yesterday from chest tube 1000 cc. Today it is 100 cc thus far. Will obtain chest x-ray tomorrow. 01/21: XR chest demonstrate mild improvement in pulmonary edema. Chest tube OP: 400 cc on 01/20 and 450 cc thus far today. On CPAP trial this am. Hopefully patient can eventually be weaned off of vent. Placement continues to be a challenge as patient has been denied at all facilities thus far, working with CM who has been in frequent contact with [facility]. 01/22: Yesterday the patient had lasted approximately 10 hours on T-piece trial. Output from chest tube approximately 525 cc yesterday. Thus far today patient has had 400 cc. Will follow with pulmonology regarding overall plan for chest tube and weaning patient off ventilator. 01/23: chest tube output 838 cc. Follow pulmonology plan re: chest tube and vent weaning. Placement remains challenging. 01/24: Very fatigue on t - piece trial yesterday afternoon, placed on full MV support. Will re-attempt today poss. Patient will complete Vancomycin course for MRSA tx on Friday 01/26. She has been afebrile sine 01/02. Current barriers to placement are weaning patient off of ventilator and removing chest tube as thus far all facilities have declined the patient. Assessment and Plan Neuro : Anxiety, chronic pain -Neurology consulted, appreciate recommendations -CT brain showed no acute events -EEG interpreted as abnormal record due to diffuse slowing noted throughout the recording, suggestive of encephalopathic process and/or drug effect, possibilities of postictal state cannot be totally excluded. Clinical correlation is in order -MRI brain not obtained-> patient has metal in her body -Repeat CT head with no acute findings -Reorientation as needed -Ammonia 42, B12 1823, TSH 1.5 -BuSpar, Seroquel, [place], gabapentin -prn xanax and Dilaudid Cardio: Acute Heart failure with reduced EF, h/o chronic heart block s/p PPM, HTN, CAD s/p PCI (2004), Moderate pulmonary HTN, cardiomyopathy -s/p vasopressor support with levophed -11/04 echocardiogram shows EF 30 to 35%, Moderate pulmonary HTN RVSP 49 -3/4 echo with 35-40% EF -Cardiology consulted, appreciate recommendations -Continue beta-charleen and statin therapy -Midodrine (titrate as needed) -Not on aspirin due to allergy -Blood pressure monitoring per protocol -As needed nitroglycerin Resp: Acute hypoxic respiratory failure secondary to bilateral pneumonia, recurrent bilateral pleural effusion s/p rt sided chest tube. Right pneumothorax (resolved). -COVID-19 PCR negative -Intubated on 11/06 with 6.00 ETT at 18 at the lip and changed over bougie on 11/11-7.50 ETT at 20 at the lip -See RT notes for titration -PSV as tolerated -Surgery consult for trach -Received trach/PEG on 11/26 -S/p bedside bronchoscopy on 11/11 complicated by pneumothorax -S/p chest tube placement for right pneumothorax and dislodgment by patient on 11/15 -ABG/CXR per [facility] -VAP bundle -Right chest wall ultrasound showed pleural effusion s/p chest tube -12/11 US thoracentesis removed 1L fluid -12/29 US thoracentesis removed 1.4L fluid -01/06 thoracentesis planned -01/16 right-sided chest tube placed by IR -SPO2 monitoring GI: S/p GI bleed, duodenal ulcer, transaminitis -GI consulted, appreciate recommendations-signed off -Nutrition consult for tube feeding, currently on nepro TF 45 cc/hr, dropped to 30 cc/hr due to concerns for emesis. -BR: Senokot -s/p peg 11/26 -H2 charleen -Carafate -24-hour +428 ml -10/2021 Gastric occult positive -> EGD-> duodenal ulcer -12/14 occult stool positive - reglan prn. : Urinary retention (resolved), hyponatremia, hypochloremia -Strict intake and output -Trend BMP ID: Septic shock (POA-resolved), bilateral pneumonia, MRSA bacteremia/pna -Infectious disease consulted, appreciate recommendations -COVID-19 PCR negative -Presented with fevers, leukocytosis and hypotension -11/04 blood cultures positive with a group B strep bacteremia 12/19 however repeat blood cultures on the with no growth to date -Echo showed no evidence of vegetation -repeat echo showed EF 35-40 % with no vegetations -ABX therapy: IV vancomycin for 4 weeks (12/16-01/26) -Monitor WBC and fever curve -Bedside bronchoscopy for mucous plug on CXR 11/11 -f/u blood cultures Heme: Acute DVT in the right external iliac vein, common femoral vein, superior aspect of femoral vein, Acute microcytic anemia -Evidenced on bilateral upper lower extremity ultrasound -S/p 7 unit PRBC -Trend CBC -Transfuse for hemoglobin less than 7 -heparin gtt dc d/t anemia -S/p IVC filter Endo: h/o DM and hypothyroidism -Continue home Synthroid -SSI -Accu-Cheks every 6 -Avoid hypoglycemia The high probability of a clinically significant, sudden or life threatening deterioration of the [multi] system(s) required my full and direct attention, intervention and personal management. The aggregate critical care time was [60] minutes. This time is in addition to time spent performing reported procedures but includes the following: [x] Data Review and interpretation [x] Patient assessment and monitoring of vital signs [x] Documentation [x] Medication orders and management History Interval history: I saw and examined the patient at bedside. No acute complaints. Resting comfortably. Currently on full MV support. Hospitalist Physical - Physical exam Narrative exam: Physical Exam: VITAL SIGNS: Reviewed. GENERAL: The patient appears normally developed, Vital signs as documented. Frail appearing elderly woman. HEAD: No signs of head trauma. EYES: Pupils are equal. Extraocular motions intact. EARS: Hearing grossly intact. MOUTH: Oropharynx is normal. NECK: No adenopathy, no JVD. CHEST: Bl rhonchi. rt sided chest tube in place. CARDIAC: Regular rate and rhythm. S1 and S2, without murmurs, gallops, or rubs. VASCULAR: No Edema. Peripheral pulses normal and equal in all extremities. ABDOMEN: Soft, non tender and non distended. No rebound or guarding, and no masses palpated. Bowel Sounds normal. MUSCULOSKELETAL: Good range of motion of all major joints. Extremities without clubbing, cyanosis or edema. NEUROLOGIC EXAM: Alert and oriented x 4. no focal sensory or strength deficits. PSYCHIATRIC: anxious appearing SKIN: detail exam as documented in skin assessment - Constitutional Vitals: Temp Pulse Resp BP Pulse Ox 98.2 F 64 13 115/52 100 01/24/22 03:44 01/24/22 06:00 01/24/22 06:00 01/24/22 06:00 01/24/22 06:00 General appearance: Present: no acute distress HEART Score - HEART Score Troponin: Troponin T 0.078 ng/mL (0.00-0.029) H 01/15/22 Unknown Results - Labs CBC & Chem 7: 01/19/22 04:50 01/19/22 04:50 Labs: Laboratory Last Values WBC 10.1 K/mm3 (4.5-11.0) 01/19/22 04:50 RBC 3.14 M/mm3 (3.65-5.03) L 01/19/22 04:50 Hgb 8.4 gm/dl (10.1-14.3) L 01/19/22 04:50 Hct 26.0 % (30.3-42.9) L 01/19/22 04:50 MCV 83 fl (79-97) 01/19/22 04:50 MCH 27 pg (28-32) L 01/19/22 04:50 MCHC 32 % (30-34) 01/19/22 04:50 RDW 18.2 % (13.2-15.2) H 01/19/22 04:50 Plt Count 222 K/mm3 (140-440) 01/19/22 04:50 Lymph % (Auto) 28.2 % (13.4-35.0) 01/19/22 04:50 [place] % (Auto) 5.3 % (0.0-7.3) 01/19/22 04:50 Eos % (Auto) 3.8 % (0.0-4.3) 01/19/22 04:50 Baso % (Auto) 0.8 % (0.0-1.8) 01/19/22 04:50 Lymph # (Auto) 2.8 K/mm3 (1.2-5.4) 01/19/22 04:50 [place] # (Auto) 0.5 K/mm3 (0.0-0.8) 01/19/22 04:50 Eos # (Auto) 0.4 K/mm3 (0.0-0.4) 01/19/22 04:50 Baso # (Auto) 0.1 K/mm3 (0.0-0.1) 01/19/22 04:50 Add Manual Diff Complete 01/19/22 04:50 Total Counted 100 01/15/22 14:36 Seg Neutrophils % 61.9 % (40.0-70.0) 01/19/22 04:50 Seg Neuts % (Manual) 82.0 % (40.0-70.0) H 01/15/22 14:36 Band Neutrophils % 0 % 01/15/22 14:36 Lymphocytes % (Manual) 11.0 % (13.4-35.0) L 01/15/22 14:36 Reactive Lymphs % (Man) 0 % 01/15/22 14:36 Monocytes % (Manual) 5.0 % (0.0-7.3) 01/15/22 14:36 Eosinophils % (Manual) 1.0 % (0.0-4.3) 01/15/22 14:36 Basophils % (Manual) 1.0 % (0.0-1.8) 01/15/22 14:36 Metamyelocytes % 0 % 01/15/22 14:36 Myelocytes % 0 % 01/15/22 14:36 Promyelocytes % 0 % 01/15/22 14:36 Blast Cells % 0 % 01/15/22 14:36 Nucleated RBC % Not Reportable 01/15/22 14:36 Seg Neutrophils # 6.2 K/mm3 (1.8-7.7) 01/19/22 04:50 Seg Neutrophils # Man 8.8 K/mm3 (1.8-7.7) H 01/15/22 14:36 Band Neutrophils # 0.0 K/mm3 01/15/22 14:36 Lymphocytes # (Manual) 1.2 K/mm3 (1.2-5.4) 01/15/22 14:36 Abs React Lymphs (Man) 0.0 K/mm3 01/15/22 14:36 Monocytes # (Manual) 0.5 K/mm3 (0.0-0.8) 01/15/22 14:36 Eosinophils # (Manual) 0.1 K/mm3 (0.0-0.4) 01/15/22 14:36 Basophils # (Manual) 0.1 K/mm3 (0.0-0.1) 01/15/22 14:36 Metamyelocytes # 0.0 K/mm3 01/15/22 14:36 Myelocytes # 0.0 K/mm3 01/15/22 14:36 Promyelocytes # 0.0 K/mm3 01/15/22 14:36 Blast Cells # 0.0 K/mm3 01/15/22 14:36 WBC Morphology Not Reportable 01/15/22 14:36 Hypersegmented Neuts Not Reportable 01/15/22 14:36 Hyposegmented Neuts Not Reportable 01/15/22 14:36 Hypogranular Neuts Not Reportable 01/15/22 14:36 Smudge Cells Not Reportable 01/15/22 14:36 Toxic Granulation Not Reportable 01/15/22 14:36 Toxic Vacuolation Not Reportable 01/15/22 14:36 Dohle Bodies Not Reportable 01/15/22 14:36 Pelger-Huet Anomaly Not Reportable 01/15/22 14:36 Irina Rods Not Reportable 01/15/22 14:36 Platelet Estimate Consistent w auto 01/15/22 14:36 Clumped Platelets Not Reportable 01/15/22 14:36 Plt Clumps, EDTA Not Reportable 01/15/22 14:36 Large Platelets Not Reportable 01/15/22 14:36 Giant Platelets Not Reportable 01/15/22 14:36 Platelet Satelliting Not Reportable 01/15/22 14:36 Plt Morphology Comment Not Reportable 01/15/22 14:36 RBC Morphology Not Reportable 01/15/22 14:36 Dimorphic RBCs Not Reportable 01/15/22 14:36 Polychromasia Not Reportable 01/15/22 14:36 Hypochromasia Not Reportable 01/15/22 14:36 Poikilocytosis Not Reportable 01/15/22 14:36 Anisocytosis 1+ 01/15/22 14:36 Microcytosis Not Reportable 01/15/22 14:36 Macrocytosis Not Reportable 01/15/22 14:36 Spherocytes Not Reportable 01/15/22 14:36 Pappenheimer Bodies Not Reportable 01/15/22 14:36 Sickle Cells Not Reportable 01/15/22 14:36 Target Cells Not Reportable 01/15/22 14:36 Tear Drop Cells Not Reportable 01/15/22 14:36 Ovalocytes Not Reportable 01/15/22 14:36 Helmet Cells Not Reportable 01/15/22 14:36 Odonnell-Harmony Bodies Not Reportable 01/15/22 14:36 Dagmar Rings Not Reportable 01/15/22 14:36 Malcom Cells Not Reportable 01/15/22 14:36 Bite Cells Not Reportable 01/15/22 14:36 Crenated Cell Not Reportable 01/15/22 14:36 Elliptocytes Not Reportable 01/15/22 14:36 Acanthocytes (Spur) Not Reportable 01/15/22 14:36 Rouleaux Not Reportable 01/15/22 14:36 Hemoglobin C Crystals Not Reportable 01/15/22 14:36 Schistocytes Not Reportable 01/15/22 14:36 Malaria parasites Not Reportable 01/15/22 14:36 Godfrey Bodies Not Reportable 01/15/22 14:36 Hem Pathologist Commnt No 01/15/22 14:36 PT 16.9 Sec. (12.2-14.9) H 01/06/22 04:06 INR 1.23 (0.87-1.13) H 01/06/22 04:06 APTT 29.2 Sec. (24.2-36.6) 11/26/21 05:00 D-Dimer 2655.00 ng/mlDDU (0-234) H 11/11/21 04:28 ABG pH 7.310 pH Units (7.350-7.450) L 01/23/22 11:50 ABG pCO2 56.8 mm Hg 01/23/22 11:50 ABG pO2 43.9 mm Hg (80.0-90.0) L 01/23/22 11:50 ABG HCO3 28.0 mmol/L (20.0-26.0) H 01/23/22 11:50 ABG O2 Saturation 70.8 % (95.0-99.0) L 01/23/22 11:50 ABG O2 Content 9.1 (0.0-44) 01/23/22 11:50 ABG Base Excess 1.1 mmol/L (-2.0-3.0) 01/23/22 11:50 ABG Hemoglobin 9.3 gm/dl (12.0-16.0) L 01/23/22 11:50 ABG Carboxyhemoglobin 1.7 % (0.0-5.0) 01/23/22 11:50 ABG Methemoglobin 0.6 % (0.0-1.5) 01/23/22 11:50 Oxyhemoglobin 69.2 % (95.0-99.0) L 01/23/22 11:50 FiO2 50 % 01/23/22 11:50 Sodium 134 mmol/L (137-145) L 01/19/22 04:50 Potassium 3.9 mmol/L (3.6-5.0) 01/19/22 04:50 Chloride 95.4 mmol/L (98-107) L 01/19/22 04:50 Carbon Dioxide 29 mmol/L (22-30) 01/19/22 04:50 Anion Gap 14 mmol/L 01/19/22 04:50 BUN 28 mg/dL (7-17) H 01/19/22 04:50 Creatinine 0.6 mg/dL (0.6-1.2) 01/19/22 04:50 Estimated GFR > 60 ml/min 01/19/22 04:50 BUN/Creatinine Ratio 47 % 01/19/22 04:50 Glucose 100 mg/dL (65-100) 01/19/22 04:50 POC Glucose 92 mg/dL (70-105) 01/24/22 00:01 Lactic Acid 3.70 mmol/L (0.7-2.0) H* 11/03/21 22:32 Calcium 8.7 mg/dL (8.4-10.2) 01/19/22 04:50 Phosphorus 3.70 mg/dL (2.5-4.5) 01/19/22 04:50 Magnesium 1.80 mg/dL (1.7-2.3) 01/19/22 04:50 Ferritin 52.6 ng/mL (10.0-200.0) 11/05/21 06:11 Total Bilirubin 0.50 mg/dL (0.1-1.2) 11/17/21 05:56 Direct Bilirubin < 0.2 mg/dL (0-0.2) 11/11/21 04:28 Indirect Bilirubin 0.1 mg/dL 11/11/21 04:28 AST 36 units/L (5-40) 11/17/21 05:56 ALT 47 units/L (7-56) 11/17/21 05:56 Alkaline Phosphatase 107 units/L (35-129) 11/17/21 05:56 Ammonia 42.0 umol/L (25-60) 11/10/21 14:08 Lactate Dehydrogenase 187 units/L (91-180) H 11/05/21 06:11 Troponin T 0.078 ng/mL (0.00-0.029) H 01/15/22 Unknown C-Reactive Protein 22.20 mg/dL (0.00-1.30) H 11/05/21 06:11 NT-Pro-B Natriuret Pep 7895 pg/mL (0-900) H 11/03/21 22:32 Total Protein 5.1 g/dL (6.3-8.2) L 11/17/21 05:56 Albumin 2.2 g/dL (3.9-5) L 11/17/21 05:56 Albumin/Globulin Ratio 0.8 % 11/17/21 05:56 Triglycerides 72 mg/dL (2-149) 01/15/22 21:07 Cholesterol 103 mg/dL (50-199) 01/15/22 21:07 LDL Cholesterol Direct 44 mg/dL (50-130) L 01/15/22 21:07 HDL Cholesterol 46 mg/dL (40-59) 01/15/22 21:07 Cholesterol/HDL Ratio 2.23 % 01/15/22 21:07 Vitamin B12 1823 pg/mL (211-911) H 11/10/21 14:08 TSH 1.510 mlU/mL (0.270-4.200) 11/10/21 14:08 Urine Color Shamika (Yellow) 01/23/22 09:36 Urine Turbidity Turbid (Clear) 01/23/22 09:36 Urine pH 7.0 (5.0-7.0) 01/23/22 09:36 Ur Specific [place] 1.011 (1.003-1.030) 01/23/22 09:36 Urine Protein <15 mg/dl mg/dL (Negative) 01/23/22 09:36 Urine Glucose (UA) Neg mg/dL (Negative) 01/23/22 09:36 Urine Ketones Neg mg/dL (Negative) 01/23/22 09:36 Urine Blood Sm (Negative) 01/23/22 09:36 Urine Nitrite Neg (Negative) 01/23/22 09:36 Urine Bilirubin Neg (Negative) 01/23/22 09:36 Urine Urobilinogen 2.0 mg/dL (<2.0) 01/23/22 09:36 Ur Leukocyte Esterase Lg (Negative) 01/23/22 09:36 Urine WBC (Auto) 16.0 /HPF (0.0-6.0) H 01/23/22 09:36 Urine RBC (Auto) 32.0 /HPF (0.0-6.0) 01/23/22 09:36 U Epithel Cells (Auto) 1.0 /HPF (0-13.0) 01/23/22 09:36 Urine Bacteria (Auto) 4+ /HPF (Negative) 01/23/22 09:36 Urine Mucus Few /HPF 01/23/22 09:36 Urine Yeast (Budding) 3+ /HPF 01/23/22 09:36 Urine Sperm Few /HPF (RN CARE TRANSITION) 01/23/22 09:36 Fluid Type Pleural 01/06/22 13:40 Fluid Color Yellow 01/06/22 13:40 Fluid Appearance Hazy 01/06/22 13:40 Fluid WBC 273 /mm3 01/06/22 13:40 Fluid RBC 45 /mm3 01/06/22 13:40 Fluid Seg Neutrophils 47.0 % 01/06/22 13:40 Fluid Lymphocytes 22.0 % 01/06/22 13:40 Fluid Monocytes 10.0 % 01/06/22 13:40 Fluid Eosinophils 19.0 % 01/06/22 13:40 Fluid Basophils 2.0 % 01/06/22 13:40 Fluid Glucose 96 mg/dL (40-70) H 01/06/22 13:40 Fluid Total Protein < 3.0 (15.0-45.0) L 01/06/22 13:40 Fluid LDH 149 01/06/22 13:40 Vancomycin Trough 11.8 ug/mL (5.0-20.0) 01/22/22 10:14 Random Vancomycin 10.5 ug/mL (0-40.0) 01/04/22 05:00 Coronavirus (PCR) Negative (Negative) 11/10/21 08:30 Blood Type O POSITIVE 12/14/21 10:30 Antibody Screen Negative 12/14/21 10:30 Crossmatch See Detail 12/14/21 10:30 Gamble/IV: Voiding Method External Female Catheter Active Medications - Current Medications Current Medications: Generic Name Dose Route Start Last Admin Trade Name Freq PRN Reason Stop Dose Admin Acetaminophen 650 mg 12/14/21 04:12 01/17/22 11:27 Acetaminophen 325 Mg/10.15 Ml Oral Liqd Unit Dose FEEDTUBE 650 mg Q6H PRN Administration Non Cardiac Pain or Temp>100.5 Hydrocodone Bitart/Acetaminophen 1 each 11/21/21 10:00 01/23/22 21:48 Hydrocodone/Acetaminophen 10-325mg Tab FEEDTUBE 1 each TID YOSSI Administration Alprazolam 0.25 mg 01/22/22 03:00 01/24/22 04:43 Alprazolam 0.5 Mg Tab FEEDTUBE 0.25 mg Q8H PRN Administration Agitation Lipase/Protease/Amylase 1 each 11/08/21 11:09 Lipase 10,500/Protease 25,000/Amylase 43,750 (Units) Dr Cap FEEDTUBE PRN PRN For Clogged Feeding Tube Buspirone HCl 7.5 mg 12/30/21 10:00 01/23/22 21:52 Buspirone 5 Mg Tab FEEDTUBE 7.5 mg BID YOSSI Administration Dextrose 50 ml 01/16/22 14:00 Dextrose 50% In Water (25gm) 50 Ml Syringe IV Q30MIN PRN Hypoglycemia Protocol Docusate Sodium 100 mg 12/30/21 10:00 01/24/22 01:01 Docusate Sodium 100 Mg/10 Ml Oral Liqd FEEDTUBE Not Given BID YOSSI Furosemide 20 mg 01/08/22 10:00 01/23/22 10:50 Furosemide 20 Mg Tab PO 20 mg QDAY YOSSI Administration Gabapentin 100 mg 01/22/22 10:00 01/23/22 17:47 Gabapentin 500 Mg/10 Ml Oral Liqd FEEDTUBE 100 mg QDAY YOSSI Administration Hydrophilic Ointment 1 applic 11/06/21 04:02 Lip Therapy Vaseline TP Q2HR PRN Dry Lips Vancomycin HCl 1 gm in 250 mls @ 166.667 mls/hr 01/04/22 10:00 01/22/22 10:33 Vancomycin/Ns 1 Gm/250 Ml IV 01/26/22 11:29 166.667 mls/hr Q48H YOSSI Administration Lansoprazole 30 mg 11/24/21 22:00 01/23/22 21:55 Lansoprazole 30 Mg Solutab FEEDTUBE 30 mg BID YOSSI Administration Levothyroxine Sodium 125 mcg 12/31/21 06:00 01/24/22 06:23 Levothyroxine 125 Mcg Tab FEEDTUBE 125 mcg DAILY@0600 YOSSI Administration Melatonin 5 mg 12/05/21 22:00 01/23/22 21:54 Melatonin 5 Mg Tab PO 5 mg QHS YOSSI Administration Metoclopramide HCl 10 mg 01/11/22 13:25 01/21/22 21:43 Metoclopramide 10 Mg/2 Ml Inj IV 10 mg Q6H PRN Administration Nausea And Vomiting Metoprolol Tartrate 6.25 mg 12/30/21 10:00 01/24/22 01:01 Metoprolol Tartrate 25 Mg Tab FEEDTUBE Not Given BID YOSSI Midodrine 10 mg 01/21/22 08:00 01/23/22 17:36 Midodrine 5 Mg Tab FEEDTUBE 10 mg TID@0800,1200,1600 YOSSI Administration Multi-Ingred Cream/Lotion/Oil/Oint 1 applic 11/06/21 04:02 Mineral Oil/Petrolatum, White Ophth Oint 3.5 Gm OU Q4HR PRN Dry Eye(s) Ondansetron HCl 4 mg 12/05/21 10:00 01/20/22 22:10 Ondansetron 4 Mg/2 Ml Inj IV 4 mg Q8H PRN Administration Nausea And Vomiting Polyethylene Glycol 17 gm 12/30/21 10:00 01/23/22 10:52 Polyethylene Glycol 3350 17 Gm Powder FEEDTUBE Not Given QDAY YOSSI Pravastatin Sodium 20 mg 12/30/21 22:00 01/24/22 01:02 Pravastatin 20 Mg Tab FEEDTUBE 20 mg QHS YOSSI Administration Quetiapine Fumarate 25 mg 12/30/21 10:00 01/23/22 10:50 Quetiapine 25 Mg Tab FEEDTUBE 25 mg QAM YOSSI Administration Quetiapine Fumarate 50 mg 12/30/21 22:00 01/23/22 21:56 Quetiapine 25 Mg Tab FEEDTUBE 50 mg QHS YOSSI Administration Senna 17.6 mg 12/29/21 11:00 01/24/22 01:10 Sennosides Oral Liqd 8.8 Mg/5 Ml Oral Liqd FEEDTUBE Not Given Q12HR YOSSI Simethicone 80 mg 01/15/22 15:06 01/15/22 21:10 Simethicone 80 Mg Chew Tab PO 80 mg PC PRN Administration Gas pain Simple Syrup 15 ml 11/08/21 11:09 Simple Syrup 15 Ml FEEDTUBE PRN PRN Hypoglycemia Simple Syrup 30 ml 11/08/21 11:09 Simple Syrup 15 Ml FEEDTUBE PRN PRN Hypoglycemia Sodium Bicarbonate 325 mg 11/08/21 11:09 01/09/22 20:25 Sodium Bicarbonate 325 Mg Tab FEEDTUBE 325 mg PRN PRN Administration For Clogged Feeding Tube Sodium Chloride 10 ml 11/04/21 10:00 01/23/22 21:56 Sodium Chloride 0.9% 10 Ml Flush Syringe IV 10 ml BID YOSSI Administration Sodium Chloride 10 ml 11/04/21 02:03 01/09/22 06:35 Sodium Chloride 0.9% 10 Ml Flush Syringe IV 10 ml PRN PRN Administration LINE FLUSH Spironolactone 25 mg 12/30/21 10:00 01/23/22 10:50 Spironolactone 25 Mg Tab FEEDTUBE 25 mg QDAY YOSSI Administration Sucralfate 1 gm 12/30/21 12:00 01/24/22 06:23 Sucralfate 1 Gm/10 Ml Oral Liqd FEEDTUBE 1 gm Q6HR YOSSI Administration Trazodone HCl 50 mg 12/04/21 22:00 01/23/22 21:53 Trazodone 50 Mg Tab PO 50 mg QHS YOSSI Administration Nutrition/Malnutrition Assess - Dietary Evaluation Nutrition/Malnutrition Findings: Nutrition Notes Start: 11/04/21 17:16 Freq: Status: Active Protocol: Document 01/19/22 12:15 [facility] (Rec: 01/19/22 12:21 [facility] [id number]) Nutrition Notes Initial or Follow up Reassessment Current Diagnosis Coronary Artery Disease, Diabetes,Hypertension,Heart Failure,Respiratory Failure Other Pertinent Diagnosis Bilat pleural effusion Current Diet TF - Vital AF 1.2 at 35ml/hr Labs/Tests Na 134 BUN 28 Pertinent Medications Reviewed Height 5 ft Weight 62.3 kg [place] Body Weight (kg) 45.45 BMI 26.8 Weight Status Overweight Subjective/Other Information Observing TF infusing at 35ml/ hr; per, RN, pt tolerating TF. One BM reported this am. Pt on trach collar support at time of visit (10:50). Percent of energy/protein needs met: 84% energy and pro Burn Absent Trauma Absent #2 Nutrition Diagnosis Inadequate enteral nutrition infusion As Evidenced by Signs and Symptoms current TF rate provides at least 75% energy and pro needs Diagnosis Progress(for reassessment Resolved documentation) #1 Nutrition Diagnosis Inadequate oral intake Diagnosis Progress(for reassessment Continues documentation) Is patient on ventilator? No Is Patient Ambulatory and/or Out of Bed No REE-([facility]-confined to bed) 1206.624 Calculation Used for Recommendations [facility] Additional Notes Pro needs 1.2-2g/k-125g/ day Fluid needs 1ml/kcal Nutrition Intervention Nutrition Support: Continue Vital AF 1.2 at 35ml/ hr with 50ml water flush q4h. Kcal 1,008 Protein (gm) 63 Carbohydrates (gm) 45 Fat (gm) 45 Fluid (mL) 681 Fiber (gm) 4 Add Supplement/Snack (indicate name/kcal Jaswant BID /protein ) Provides kCal: 190 Provides Protein (gm) 5 Goal #1 TF tolerance Goal #2 TF to meet at least 75% energy and pro needs Goal #3 Wound healing Follow-Up By: 01/26/22 Additional Comments F/U: stable TF, wt, vent status, wound healing/Jaswant administration
[2022-01-24] MEDS: LANSOPRAZOLE 30 MG SOLUTAB FEEDTUBE SCH ×2 (10:04→21:55)
[2022-01-24] MEDS: VANCOMYCIN/NS 1 GM/250 ML 1 GM/250 ML BAG IV SCH (10:04)
[2022-01-24] MEDS: QUEtiapine 25 MG TAB FEEDTUBE SCH ×2 (10:04→21:55)
[2022-01-24] MEDS: GABAPENTIN 500 MG/10 ML ORAL LIQD FEEDTUBE SCH (10:04)
[2022-01-24] MEDS: MIDODRINE 5 MG TAB FEEDTUBE SCH ×3 (10:05→18:10)
[2022-01-24] MEDS: HYDROcodone/ACETAMINOPHEN 10-325MG TAB FEEDTUBE SCH ×3 (10:05→19:53)
[2022-01-24] MEDS: FUROSEMIDE 20 MG TAB PO SCH (10:05)
[2022-01-24] MEDS: SPIRONOLACTONE 25 MG TAB FEEDTUBE SCH (10:05)
[2022-01-24] MEDS: POLYETHYLENE GLYCOL 3350 17 GM POWDER FEEDTUBE SCH (10:06)
[2022-01-24] MEDS: busPIRone 5 MG TAB FEEDTUBE SCH ×2 (10:06→21:55)
--- NOTE | 2022-01-24 13:41 | Progress Note ---
Assessment and Plan 81-year-old female with known history of diabetes mellitus, hypertension and arthritis brought to the emergency room via EMS for shortness of breath which has been ongoing for the past 3 days prior to come to the emergency room. Patient has been having some cough and shortness of breath. According to patient's , patient has also been having a fever of about 102.2 F. Upon arrival of EMS patient was found to be tachypneic with O2 saturation of 76% on room air which later improved to 88% on nonrebreather. Work-up in the emergency room , chest x-ray shows bilateral interstitial pulmonary edema with bilateral pleural effusions.. Bibasilar opacities which favors atelectasis. Lab reveals leukocytosis of 29. Hemoglobin of 6.1. Patient received blood transfusion and also checked for COVID-19. Patient Ivy virus test reported negative. Patient intubated and placed on mechanical ventilation. Patient transfered to ICU. Patient undergone thoracentesis and chest tube placement. Patient still on mechanical ventilation. Patient transfered to [facility]. Patient sleeping on T tube , FIO2 40% and O2 saturation running 98%. Tolerating T tube good at this time. No acute respiratory distress. Patient afebrile. No leukocytosis.Blood pressure 113/50, Pulse 60 , respirations 20 Patients recent HGB 8.4 01/19/22 Chest xray 12/11/21 reported Diffuse bilateral pulmonary opacities most significant in the left lung and right upper lung .No pneumothorax. Chest xray done 01/01/22 reported Worsening bilateral pulmonary opacities and effusions Chest xray 01/05/22 reported Diffuse bilateral pleuroparenchymal opacities, right greater than left, are similar to the prior exam. No pneumothorax. Patient undergone thoracentesis under Ultrasound guidance. Repeat chest xray post thoracentesis 01/06/22 reported Near complete evacuation of the right pleural effusion. No pneumothorax. Pleural fluid cell count wbc 273, RBC 45 Pleural fluid chemistry Protein less than 3, [id number], Glucose 96. Pleural fluid is transudate. Repeat chest xray 01/16/22 reported Diffuse bilateral pulmonary opacities and effusions. Right PICC line tip overlies distal SVC. Small right chest tube is noted without large pneumothorax Chest xray done 01/19/22 reported stable diffuse bilateral interstitial infiltrates and small effusions. Chest xray 01/21/22 reported Mildly improved pulmonary edema and bilateral pleural effusions. No pneumothorax. Patient is on Vancomycin, Prevacid and Sucralfate and lasix. Recommend SCDs. Patient is on tube feeding. Patients daughter at bed side and explained patients respiratory status. I spent critical care time of 33 minutes, reviewing the chart, examine the patient, review lab results, chest xray and talk to respiratory therapy and nursing staff and work out plan of treatment in this critically ill patient. - Patient Problems (1) Acute respiratory failure with hypoxia Current Visit: Yes Status: Acute Plan to address problem: On T tube, FIO2 40%. Continue Prevacid. SCDs. (2) Bilateral pneumonia Current Visit: Yes Status: Acute Plan to address problem: Patient is on vancomycin. (3) Occult blood positive stool Current Visit: Yes Status: Acute Plan to address problem: Management as per gastroenterology. (4) Acute anemia Current Visit: Yes Status: Acute Plan to address problem: Patient received blood transfusion. HGB 8.4 on 01/19/22. (5) Suspected COVID-19 virus infection Current Visit: Yes Status: Acute Plan to address problem: Ivy virus PCR negative. (6) Pleural effusion Current Visit: Yes Status: Acute Plan to address problem: Patient unergone right thoracentesis under ultrasound guidance. Post thoracentesis chest xray reported Near complete evacuation of the right pleural effusion. No pneumothorax. Pleural fluid cell count wbc 273, RBC 45 Pleural fluid chemistry Protein less than 3, [id number], Glucose 96. Pleural fluid is transudate. Subjective Date of service: 01/24/22 Principal diagnosis: Septic shock; AHRF; Anemia; Pneumonia; pleural effusion; HFrEF; Pulm HTN Interval history: 81-year-old female with known history of diabetes mellitus, hypertension and arthritis brought to the emergency room via EMS for shortness of breath which has been ongoing for the past 3 days prior to come to the emergency room. Patient has been having some cough and shortness of breath. According to patient's , patient has also been having a fever of about 102.2 F. Upon arrival of EMS patient was found to be tachypneic with O2 saturation of 76% on room air which later improved to 88% on nonrebreather. Work-up in the emergency room , chest x-ray shows bilateral interstitial pulmonary edema with bilateral pleural effusions.. Bibasilar opacities which favors atelectasis. Lab reveals leukocytosis of 29. Hemoglobin of 6.1. Patient received blood transfusion and also checked for COVID-19. Patient Ivy virus test reported negative. Patient intubated and placed on mechanical ventilation. Patient transfered to ICU. Patient undergone thoracentesis and chest tube placement. Patient still on mechanical ventilation. Patient transfered to [facility]. Patient sleeping on T tube , FIO2 40% and O2 saturation running 98%. Tolerating T tube good at this time. No acute respiratory distress. Patient afebrile. No leukocytosis.Blood pressure 113/50, Pulse 60 , respirations 20 Patients recent HGB 8.4 01/19/22 Chest xray 12/11/21 reported Diffuse bilateral pulmonary opacities most signif icant in the left lung and right upper lung .No pneumothorax. Chest xray done 01/01/22 reported Worsening bilateral pulmonary opacities and effusions Chest xray 01/05/22 reported Diffuse bilateral pleuroparenchymal opacities, right greater than left, are similar to the prior exam. No pneumothorax. Patient undergone thoracentesis under Ultrasound guidance. Repeat chest xray post thoracentesis 01/06/22 reported Near complete evacuation of the right pleural effusion. No pneumothorax. Pleural fluid cell count wbc 273, RBC 45 Pleural fluid chemistry Protein less than 3, [id number], Glucose 96. Pleural fluid is transudate. Repeat chest xray 01/16/22 reported Diffuse bilateral pulmonary opacities and effusions. Right PICC line tip overlies distal SVC. Small right chest tube is noted without large pneumothorax Chest xray done 01/19/22 reported stable diffuse bilateral interstitial infil trates and small effusions. Chest xray 01/21/22 reported Mildly improved pulmonary edema and bilateral pleural effusions. No pneumothorax. Patient is on Vancomycin, Prevacid and Sucralfate and lasix. Recommend SCDs. Patient is on tube feeding. Patients daughter at bed side. Explained patients respiratory status. Objective Vital Signs - 12hr 01/24/22 01/24/22 01/24/22 02:00 03:00 03:44 Temperature 98.2 F Pulse Rate 60 60 Pulse Rate [ From Monitor] Respiratory 13 10 L Rate Blood Pressure 100/42 107/45 O2 Sat by Pulse 100 100 Oximetry O2 Sat by Pulse Oximetry [ Assessment] 01/24/22 01/24/22 01/24/22 04:00 05:00 06:00 Temperature Pulse Rate 65 61 64 Pulse Rate [ 60 From Monitor] Respiratory 13 12 13 Rate Blood Pressure 115/52 107/49 115/52 O2 Sat by Pulse 100 100 100 Oximetry O2 Sat by Pulse Oximetry [ Assessment] 01/24/22 01/24/22 01/24/22 06:51 07:00 07:11 Temperature Pulse Rate 63 62 64 Pulse Rate [ From Monitor] Respiratory 11 L 12 16 Rate Blood Pressure 115/52 114/50 114/50 O2 Sat by Pulse 100 98 100 Oximetry O2 Sat by Pulse Oximetry [ Assessment] 01/24/22 01/24/22 01/24/22 07:21 07:31 07:41 Temperature Pulse Rate 65 65 69 Pulse Rate [ From Monitor] Respiratory 12 16 9 L Rate Blood Pressure 114/50 114/50 114/50 O2 Sat by Pulse 100 100 100 Oximetry O2 Sat by Pulse Oximetry [ Assessment] 01/24/22 01/24/22 01/24/22 07:51 08:00 08:04 Temperature 97.9 F Pulse Rate 66 70 60 Pulse Rate [ 62 From Monitor] Respiratory 11 L 16 13 Rate Blood Pressure 114/50 111/48 111/48 O2 Sat by Pulse 99 95 100 Oximetry O2 Sat by Pulse 100 Oximetry [ Assessment] 01/24/22 01/24/22 01/24/22 08:11 09:00 10:00 Temperature Pulse Rate 60 64 60 Pulse Rate [ From Monitor] Respiratory 13 12 10 L Rate Blood Pressure 111/48 97/46 101/47 O2 Sat by Pulse 94 93 92 Oximetry O2 Sat by Pulse Oximetry [ Assessment] 01/24/22 01/24/22 01/24/22 10:04 10:05 10:37 Temperature Pulse Rate 60 60 60 Pulse Rate [ From Monitor] Respiratory 16 Rate Blood Pressure 101/47 101/47 101/47 O2 Sat by Pulse 100 Oximetry O2 Sat by Pulse Oximetry [ Assessment] 01/24/22 01/24/22 01/24/22 11:00 11:05 12:00 Temperature Pulse Rate 62 60 60 Pulse Rate [ 64 From Monitor] Respiratory 15 16 17 Rate Blood Pressure 105/49 105/49 110/51 O2 Sat by Pulse 100 100 96 Oximetry O2 Sat by Pulse Oximetry [ Assessment] 01/24/22 01/24/22 12:33 13:00 Temperature 97.5 F L Pulse Rate 60 Pulse Rate [ From Monitor] Respiratory 20 Rate Blood Pressure 113/50 O2 Sat by Pulse 100 Oximetry O2 Sat by Pulse Oximetry [ Assessment] Constitutional: no acute distress, asleep Eyes: non-icteric ENT: oropharynx moist, other (+ Midline tracheostomy with minimal secretions) Neck: supple, no lymphadenopathy, no JVD Effort: mildly labored Ascultation: Bilateral: diminished breath sounds, rhonchi, other (Right chest tube) Percussion: Right: not dull, Left: dull (bases) Cardiovascular: regular rate and rhythm, other (S1,S2) Gastrointestinal: normoactive bowel sounds, soft, non-tender, non-distended (protuberant) Integumentary: normal Extremities: no cyanosis, pink and warm, pulses normal, edema (upper etremities), anasarca Neurologic: non-focal exam (grossly), pupils equal and round, CN II-XII normal Psychiatric: anxious, other (Sleeping at this time.) CBC and BMP: 01/19/22 04:50 01/19/22 04:50 ABG, PT/INR, D-dimer: ABG ABG pH 7.310 pH Units (7.350-7.450) L 01/23/22 11:50 ABG pCO2 56.8 mm Hg 01/23/22 11:50 ABG pO2 43.9 mm Hg (80.0-90.0) L 01/23/22 11:50 ABG O2 Saturation 70.8 % (95.0-99.0) L 01/23/22 11:50 PT/INR, D-dimer PT 16.9 Sec. (12.2-14.9) H 01/06/22 04:06 INR 1.23 (0.87-1.13) H 01/06/22 04:06 D-Dimer 2655.00 ng/mlDDU (0-234) H 11/11/21 04:28 Abnormal lab findings: Abnormal Labs 11/03/21 11/03/21 11/03/21 22:32 22:32 22:32 WBC 29.3 H RBC 2.93 L Hgb 6.1 L Hct 21.9 L MCV 75 L MCH 21 L MCHC 28 L RDW 19.7 H Plt Count Seg Neuts % (Manual) 97.0 H Lymphocytes % (Manual) 3.0 L Seg Neutrophils # Man 28.4 H Lymphocytes # (Manual) 0.9 L Monocytes # (Manual) PT 18.6 H INR 1.40 H D-Dimer ABG pH ABG pO2 ABG HCO3 ABG O2 Saturation ABG Base Excess ABG Hemoglobin Oxyhemoglobin Sodium Potassium Chloride Carbon Dioxide 20 L BUN 33 H Creatinine Glucose 119 H POC Glucose Lactic Acid Calcium 8.3 L Phosphorus Magnesium AST ALT Alkaline Phosphatase Lactate Dehydrogenase Troponin T 0.035 H C-Reactive Protein NT-Pro-B Natriuret Pep Total Protein Albumin LDL Cholesterol Direct 34 L Vitamin B12 Urine WBC (Auto) Fluid Glucose Fluid Total Protein Vancomycin Trough Crossmatch 11/03/21 11/03/21 11/03/21 22:32 22:32 23:57 WBC RBC Hgb Hct MCV MCH MCHC RDW Plt Count Seg Neuts % (Manual) Lymphocytes % (Manual) Seg Neutrophils # Man Lymphocytes # (Manual) Monocytes # (Manual) PT INR D-Dimer ABG pH ABG pO2 ABG HCO3 ABG O2 Saturation ABG Base Excess ABG Hemoglobin Oxyhemoglobin Sodium Potassium Chloride Carbon Dioxide BUN Creatinine Glucose POC Glucose Lactic Acid 3.70 H* Calcium Phosphorus Magnesium AST ALT Alkaline Phosphatase 139 H Lactate Dehydrogenase Troponin T C-Reactive Protein NT-Pro-B Natriuret Pep 7895 H Total Protein Albumin 3.5 L LDL Cholesterol Direct Vitamin B12 Urine WBC (Auto) Fluid Glucose Fluid Total Protein Vancomycin Trough Crossmatch See Detail 11/04/21 11/04/21 11/05/21 00:59 13:58 00:51 WBC 27.9 H RBC 3.28 L Hgb 7.3 L Hct 25.5 L MCV 78 L MCH 22 L MCHC 29 L RDW 19.1 H Plt Count Seg Neuts % (Manual) 96.0 H Lymphocytes % (Manual) 2.0 L Seg Neutrophils # Man 26.8 H Lymphocytes # (Manual) 0.6 L Monocytes # (Manual) PT INR D-Dimer ABG pH ABG pO2 ABG HCO3 ABG O2 Saturation ABG Base Excess ABG Hemoglobin Oxyhemoglobin Sodium Potassium Chloride Carbon Dioxide BUN Creatinine Glucose POC Glucose Lactic Acid Calcium Phosphorus Magnesium AST ALT Alkaline Phosphatase Lactate Dehydrogenase Troponin T 0.051 H D 0.032 H D C-Reactive Protein NT-Pro-B Natriuret Pep Total Protein Albumin LDL Cholesterol Direct Vitamin B12 Urine WBC (Auto) Fluid Glucose Fluid Total Protein Vancomycin Trough Crossmatch 11/05/21 11/05/21 11/05/21 06:11 06:11 06:11 WBC 31.8 H RBC 3.57 L Hgb 8.0 L Hct 27.7 L MCV 78 L MCH 22 L MCHC 29 L RDW 19.2 H Plt Count Seg Neuts % (Manual) 91.0 H Lymphocytes % (Manual) 4.5 L Seg Neutrophils # Man 28.9 H Lymphocytes # (Manual) Monocytes # (Manual) 1.1 H PT INR D-Dimer 1494.53 H ABG pH ABG pO2 ABG HCO3 ABG O2 Saturation ABG Base Excess ABG Hemoglobin Oxyhemoglobin Sodium Potassium Chloride Carbon Dioxide 19 L BUN 42 H Creatinine Glucose 115 H POC Glucose Lactic Acid Calcium Phosphorus Magnesium AST 43 H ALT Alkaline Phosphatase Lactate Dehydrogenase 187 H Troponin T C-Reactive Protein 22.20 H NT-Pro-B Natriuret Pep Total Protein 6.0 L Albumin 3.2 L LDL Cholesterol Direct Vitamin B12 Urine WBC (Auto) Fluid Glucose Fluid Total Protein Vancomycin Trough Crossmatch 11/05/21 11/05/21 11/06/21 06:11 12:15 00:30 WBC RBC Hgb Hct MCV MCH MCHC RDW Plt Count Seg Neuts % (Manual) Lymphocytes % (Manual) Seg Neutrophils # Man Lymphocytes # (Manual) Monocytes # (Manual) PT INR D-Dimer ABG pH ABG pO2 ABG HCO3 ABG O2 Saturation ABG Base Excess ABG Hemoglobin Oxyhemoglobin Sodium Potassium Chloride Carbon Dioxide BUN Creatinine Glucose POC Glucose 113 H 69 L Lactic Acid Calcium Phosphorus Magnesium AST ALT Alkaline Phosphatase Lactate Dehydrogenase Troponin T 0.033 H C-Reactive Protein NT-Pro-B Natriuret Pep Total Protein Albumin LDL Cholesterol Direct Vitamin B12 Urine WBC (Auto) Fluid Glucose Fluid Total Protein Vancomycin Trough Crossmatch 11/06/21 11/06/21 11/06/21 05:50 15:50 15:50 WBC 25.5 H RBC 3.62 L Hgb 8.0 L Hct 27.5 L MCV 76 L MCH 22 L MCHC 29 L RDW 19.6 H Plt Count Seg Neuts % (Manual) 92.0 H Lymphocytes % (Manual) 5.0 L Seg Neutrophils # Man 23.5 H Lymphocytes # (Manual) Monocytes # (Manual) PT INR D-Dimer ABG pH 7.305 L ABG pO2 ABG HCO3 15.8 L ABG O2 Saturation ABG Base Excess -9.6 L ABG Hemoglobin 8.6 L Oxyhemoglobin 94.6 L Sodium Potassium Chloride 113.9 H Carbon Dioxide 17 L BUN 56 H Creatinine Glucose 114 H POC Glucose Lactic Acid Calcium 7.9 L Phosphorus Magnesium AST 1410 H ALT 934 H Alkaline Phosphatase 142 H Lactate Dehydrogenase Troponin T C-Reactive Protein NT-Pro-B Natriuret Pep Total Protein 5.0 L Albumin 2.6 L LDL Cholesterol Direct Vitamin B12 Urine WBC (Auto) Fluid Glucose Fluid Total Protein Vancomycin Trough Crossmatch 11/07/21 11/07/21 11/07/21 03:30 04:50 08:07 WBC RBC Hgb Hct MCV MCH MCHC RDW Plt Count Seg Neuts % (Manual) Lymphocytes % (Manual) Seg Neutrophils # Man Lymphocytes # (Manual) Monocytes # (Manual) PT INR D-Dimer ABG pH ABG pO2 296.9 H ABG HCO3 18.1 L ABG O2 Saturation 99.5 H ABG Base Excess -5.9 L ABG Hemoglobin 7.6 L Oxyhemoglobin Sodium Potassium Chloride Carbon Dioxide BUN Creatinine Glucose POC Glucose 106 H 108 H Lactic Acid Calcium Phosphorus Magnesium AST ALT Alkaline Phosphatase Lactate Dehydrogenase Troponin T C-Reactive Protein NT-Pro-B Natriuret Pep Total Protein Albumin LDL Cholesterol Direct Vitamin B12 Urine WBC (Auto) Fluid Glucose Fluid Total Protein Vancomycin Trough Crossmatch 11/08/21 11/08/21 11/08/21 03:10 18:05 23:43 WBC RBC Hgb Hct MCV MCH MCHC RDW Plt Count Seg Neuts % (Manual) Lymphocytes % (Manual) Seg Neutrophils # Man Lymphocytes # (Manual) Monocytes # (Manual) PT INR D-Dimer ABG pH ABG pO2 127.4 H ABG HCO3 ABG O2 Saturation ABG Base Excess -3.4 L ABG Hemoglobin 7.4 L Oxyhemoglobin Sodium Potassium Chloride Carbon Dioxide BUN Creatinine Glucose POC Glucose 113 H 141 H Lactic Acid Calcium Phosphorus Magnesium AST ALT Alkaline Phosphatase Lactate Dehydrogenase Troponin T C-Reactive Protein NT-Pro-B Natriuret Pep Total Protein Albumin LDL Cholesterol Direct Vitamin B12 Urine WBC (Auto) Fluid Glucose Fluid Total Protein Vancomycin Trough Crossmatch 11/08/21 11/08/21 11/09/21 Unknown Unknown 02:00 WBC 14.5 H RBC 3.35 L Hgb 7.5 L 8.1 L Hct 25.4 L 27.6 L MCV 76 L 76 L MCH 23 L 22 L MCHC RDW 19.9 H 19.9 H Plt Count Seg Neuts % (Manual) Lymphocytes % (Manual) Seg Neutrophils # Man Lymphocytes # (Manual) Monocytes # (Manual) PT INR D-Dimer ABG pH ABG pO2 ABG HCO3 ABG O2 Saturation ABG Base Excess ABG Hemoglobin Oxyhemoglobin Sodium 154 H D Potassium 3.3 L Chloride 120.7 H Carbon Dioxide 20 L BUN 38 H Creatinine Glucose POC Glucose Lactic Acid Calcium 8.3 L Phosphorus Magnesium AST ALT Alkaline Phosphatase Lactate Dehydrogenase Troponin T C-Reactive Protein NT-Pro-B Natriuret Pep Total Protein Albumin LDL Cholesterol Direct Vitamin B12 Urine WBC (Auto) Fluid Glucose Fluid Total Protein Vancomycin Trough Crossmatch 11/09/21 11/09/21 11/09/21 02:00 02:31 05:12 WBC RBC Hgb Hct MCV MCH MCHC RDW Plt Count Seg Neuts % (Manual) Lymphocytes % (Manual) Seg Neutrophils # Man Lymphocytes # (Manual) Monocytes # (Manual) PT INR D-Dimer ABG pH 7.479 H ABG pO2 121.3 H ABG HCO3 ABG O2 Saturation ABG Base Excess ABG Hemoglobin 7.3 L Oxyhemoglobin Sodium Potassium Chloride 112.5 H Carbon Dioxide BUN 33 H Creatinine Glucose 161 H POC Glucose 135 H Lactic Acid Calcium Phosphorus Magnesium AST 251 H ALT 481 H Alkaline Phosphatase Lactate Dehydrogenase Troponin T C-Reactive Protein NT-Pro-B Natriuret Pep Total Protein 5.0 L Albumin 2.8 L LDL Cholesterol Direct Vitamin B12 Urine WBC (Auto) Fluid Glucose Fluid Total Protein Vancomycin Trough Crossmatch 11/09/21 11/09/21 11/09/21 11:33 16:32 23:28 WBC RBC Hgb Hct MCV MCH MCHC RDW Plt Count Seg Neuts % (Manual) Lymphocytes % (Manual) Seg Neutrophils # Man Lymphocytes # (Manual) Monocytes # (Manual) PT INR D-Dimer ABG pH ABG pO2 ABG HCO3 ABG O2 Saturation ABG Base Excess ABG Hemoglobin Oxyhemoglobin Sodium Potassium Chloride Carbon Dioxide BUN Creatinine Glucose POC Glucose 132 H 133 H 143 H Lactic Acid Calcium Phosphorus Magnesium AST ALT Alkaline Phosphatase Lactate Dehydrogenase Troponin T C-Reactive Protein NT-Pro-B Natriuret Pep Total Protein Albumin LDL Cholesterol Direct Vitamin B12 Urine WBC (Auto) Fluid Glucose Fluid Total Protein Vancomycin Trough Crossmatch 11/10/21 11/10/21 11/10/21 04:00 04:00 05:35 WBC 16.0 H RBC 3.61 L Hgb 8.0 L Hct 27.1 L MCV 75 L MCH 22 L MCHC RDW 20.4 H Plt Count Seg Neuts % (Manual) Lymphocytes % (Manual) Seg Neutrophils # Man Lymphocytes # (Manual) Monocytes # (Manual) PT INR D-Dimer ABG pH ABG pO2 ABG HCO3 ABG O2 Saturation ABG Base Excess ABG Hemoglobin Oxyhemoglobin Sodium 149 H Potassium Chloride 114.1 H Carbon Dioxide BUN 31 H Creatinine Glucose 148 H POC Glucose 132 H Lactic Acid Calcium 8.2 L Phosphorus Magnesium AST ALT Alkaline Phosphatase Lactate Dehydrogenase Troponin T C-Reactive Protein NT-Pro-B Natriuret Pep Total Protein Albumin LDL Cholesterol Direct Vitamin B12 Urine WBC (Auto) Fluid Glucose Fluid Total Protein Vancomycin Trough Crossmatch 11/10/21 11/10/21 11/10/21 11:31 14:08 15:35 WBC RBC Hgb Hct MCV MCH MCHC RDW Plt Count Seg Neuts % (Manual) Lymphocytes % (Manual) Seg Neutrophils # Man Lymphocytes # (Manual) Monocytes # (Manual) PT INR D-Dimer ABG pH ABG pO2 126.6 H ABG HCO3 ABG O2 Saturation ABG Base Excess ABG Hemoglobin 7.4 L Oxyhemoglobin Sodium Potassium Chloride Carbon Dioxide BUN Creatinine Glucose POC Glucose 147 H Lactic Acid Calcium Phosphorus Magnesium AST ALT Alkaline Phosphatase Lactate Dehydrogenase Troponin T C-Reactive Protein NT-Pro-B Natriuret Pep Total Protein Albumin LDL Cholesterol Direct Vitamin B12 1823 H Urine WBC (Auto) Fluid Glucose Fluid Total Protein Vancomycin Trough Crossmatch 11/10/21 11/11/21 11/11/21 17:53 00:55 04:28 WBC RBC Hgb Hct MCV MCH MCHC RDW Plt Count Seg Neuts % (Manual) Lymphocytes % (Manual) Seg Neutrophils # Man Lymphocytes # (Manual) Monocytes # (Manual) PT INR D-Dimer ABG pH ABG pO2 ABG HCO3 ABG O2 Saturation ABG Base Excess ABG Hemoglobin Oxyhemoglobin Sodium 149 H Potassium Chloride 112.2 H Carbon Dioxide BUN 34 H Creatinine Glucose 148 H POC Glucose 140 H 145 H Lactic Acid Calcium 7.9 L Phosphorus Magnesium AST 53 H ALT 203 H Alkaline Phosphatase Lactate Dehydrogenase Troponin T C-Reactive Protein NT-Pro-B Natriuret Pep Total Protein 4.9 L Albumin 2.6 L LDL Cholesterol Direct Vitamin B12 Urine WBC (Auto) Fluid Glucose Fluid Total Protein Vancomycin Trough Crossmatch 11/11/21 11/11/21 11/11/21 04:28 04:28 05:28 WBC 20.9 H RBC 3.47 L Hgb 7.5 L Hct 26.0 L MCV 75 L MCH 22 L MCHC 29 L RDW 21.6 H Plt Count 132 L Seg Neuts % (Manual) Lymphocytes % (Manual) Seg Neutrophils # Man Lymphocytes # (Manual) Monocytes # (Manual) PT INR D-Dimer 2655.00 H ABG pH ABG pO2 ABG HCO3 ABG O2 Saturation ABG Base Excess ABG Hemoglobin Oxyhemoglobin Sodium Potassium Chloride Carbon Dioxide BUN Creatinine Glucose POC Glucose 154 H Lactic Acid Calcium Phosphorus Magnesium AST ALT Alkaline Phosphatase Lactate Dehydrogenase Troponin T C-Reactive Protein NT-Pro-B Natriuret Pep Total Protein Albumin LDL Cholesterol Direct Vitamin B12 Urine WBC (Auto) Fluid Glucose Fluid Total Protein Vancomycin Trough Crossmatch 11/11/21 11/11/21 11/12/21 12:38 18:13 00:14 WBC RBC Hgb Hct MCV MCH MCHC RDW Plt Count Seg Neuts % (Manual) Lymphocytes % (Manual) Seg Neutrophils # Man Lymphocytes # (Manual) Monocytes # (Manual) PT INR D-Dimer ABG pH ABG pO2 ABG HCO3 ABG O2 Saturation ABG Base Excess ABG Hemoglobin Oxyhemoglobin Sodium Potassium Chloride Carbon Dioxide BUN Creatinine Glucose POC Glucose 137 H 108 H 137 H Lactic Acid Calcium Phosphorus Magnesium AST ALT Alkaline Phosphatase Lactate Dehydrogenase Troponin T C-Reactive Protein NT-Pro-B Natriuret Pep Total Protein Albumin LDL Cholesterol Direct Vitamin B12 Urine WBC (Auto) Fluid Glucose Fluid Total Protein Vancomycin Trough Crossmatch 11/12/21 11/12/21 11/12/21 05:40 06:24 11:12 WBC RBC Hgb Hct MCV MCH MCHC RDW Plt Count Seg Neuts % (Manual) Lymphocytes % (Manual) Seg Neutrophils # Man Lymphocytes # (Manual) Monocytes # (Manual) PT INR D-Dimer ABG pH 7.586 H ABG pO2 150.6 H ABG HCO3 27.2 H ABG O2 Saturation 99.1 H ABG Base Excess 5.2 H ABG Hemoglobin 7.5 L Oxyhemoglobin Sodium Potassium Chloride Carbon Dioxide BUN Creatinine Glucose POC Glucose 132 H 140 H Lactic Acid Calcium Phosphorus Magnesium AST ALT Alkaline Phosphatase Lactate Dehydrogenase Troponin T C-Reactive Protein NT-Pro-B Natriuret Pep Total Protein Albumin LDL Cholesterol Direct Vitamin B12 Urine WBC (Auto) Fluid Glucose Fluid Total Protein Vancomycin Trough Crossmatch 11/12/21 11/12/21 11/12/21 14:50 14:50 17:13 WBC 19.8 H RBC 3.27 L Hgb 7.1 L Hct 24.5 L MCV 75 L MCH 22 L MCHC 29 L RDW 22.3 H Plt Count Seg Neuts % (Manual) Lymphocytes % (Manual) Seg Neutrophils # Man Lymphocytes # (Manual) Monocytes # (Manual) PT INR D-Dimer ABG pH ABG pO2 ABG HCO3 ABG O2 Saturation ABG Base Excess ABG Hemoglobin Oxyhemoglobin Sodium 150 H Potassium 3.3 L Chloride 112.0 H Carbon Dioxide BUN 40 H Creatinine Glucose 151 H POC Glucose 121 H Lactic Acid Calcium 7.4 L Phosphorus 1.70 L Magnesium 1.40 L AST ALT Alkaline Phosphatase Lactate Dehydrogenase Troponin T C-Reactive Protein NT-Pro-B Natriuret Pep Total Protein Albumin LDL Cholesterol Direct Vitamin B12 Urine WBC (Auto) Fluid Glucose Fluid Total Protein Vancomycin Trough Crossmatch 11/12/21 11/13/21 11/13/21 23:19 05:34 06:30 WBC RBC Hgb Hct MCV MCH MCHC RDW Plt Count Seg Neuts % (Manual) Lymphocytes % (Manual) Seg Neutrophils # Man Lymphocytes # (Manual) Monocytes # (Manual) PT INR D-Dimer ABG pH ABG pO2 ABG HCO3 ABG O2 Saturation ABG Base Excess ABG Hemoglobin Oxyhemoglobin Sodium 149 H Potassium Chloride 60.0 L Carbon Dioxide BUN 40 H Creatinine Glucose 146 H POC Glucose 113 H 132 H Lactic Acid Calcium 7.3 L Phosphorus Magnesium 2.40 H AST ALT 72 H Alkaline Phosphatase Lactate Dehydrogenase Troponin T C-Reactive Protein NT-Pro-B Natriuret Pep Total Protein 5.2 L Albumin 2.2 L LDL Cholesterol Direct Vitamin B12 Urine WBC (Auto) Fluid Glucose Fluid Total Protein Vancomycin Trough Crossmatch 11/13/21 11/13/21 11/13/21 06:30 08:30 11:19 WBC 21.2 H RBC 3.12 L Hgb 6.8 L Hct 23.2 L MCV 74 L MCH 22 L MCHC 29 L RDW 22.2 H Plt Count 135 L Seg Neuts % (Manual) Lymphocytes % (Manual) Seg Neutrophils # Man Lymphocytes # (Manual) Monocytes # (Manual) PT INR D-Dimer ABG pH ABG pO2 ABG HCO3 ABG O2 Saturation ABG Base Excess ABG Hemoglobin Oxyhemoglobin Sodium Potassium Chloride Carbon Dioxide BUN Creatinine Glucose POC Glucose 136 H Lactic Acid Calcium Phosphorus Magnesium AST ALT Alkaline Phosphatase Lactate Dehydrogenase Troponin T C-Reactive Protein NT-Pro-B Natriuret Pep Total Protein Albumin LDL Cholesterol Direct Vitamin B12 Urine WBC (Auto) Fluid Glucose Fluid Total Protein Vancomycin Trough Crossmatch See Detail 11/13/21 11/14/21 11/14/21 18:21 00:01 04:46 WBC 20.0 H RBC 3.41 L Hgb 7.9 L Hct 26.8 L MCV MCH 23 L MCHC 29 L RDW 24.0 H Plt Count Seg Neuts % (Manual) Lymphocytes % (Manual) Seg Neutrophils # Man Lymphocytes # (Manual) Monocytes # (Manual) PT INR D-Dimer ABG pH ABG pO2 ABG HCO3 ABG O2 Saturation ABG Base Excess ABG Hemoglobin Oxyhemoglobin Sodium Potassium Chloride Carbon Dioxide BUN Creatinine Glucose POC Glucose 149 H 141 H Lactic Acid Calcium Phosphorus Magnesium AST ALT Alkaline Phosphatase Lactate Dehydrogenase Troponin T C-Reactive Protein NT-Pro-B Natriuret Pep Total Protein Albumin LDL Cholesterol Direct Vitamin B12 Urine WBC (Auto) Fluid Glucose Fluid Total Protein Vancomycin Trough Crossmatch 11/14/21 11/14/21 11/14/21 04:46 05:10 11:10 WBC RBC Hgb Hct MCV MCH MCHC RDW Plt Count Seg Neuts % (Manual) Lymphocytes % (Manual) Seg Neutrophils # Man Lymphocytes # (Manual) Monocytes # (Manual) PT INR D-Dimer ABG pH ABG pO2 ABG HCO3 ABG O2 Saturation ABG Base Excess ABG Hemoglobin Oxyhemoglobin Sodium 148 H Potassium Chloride 113.1 H Carbon Dioxide BUN 43 H Creatinine Glucose 140 H POC Glucose 132 H 133 H Lactic Acid Calcium 7.5 L Phosphorus Magnesium AST ALT Alkaline Phosphatase Lactate Dehydrogenase Troponin T C-Reactive Protein NT-Pro-B Natriuret Pep Total Protein Albumin LDL Cholesterol Direct Vitamin B12 Urine WBC (Auto) Fluid Glucose Fluid Total Protein Vancomycin Trough Crossmatch 11/14/21 11/14/21 11/14/21 16:14 17:48 23:23 WBC RBC Hgb Hct MCV MCH MCHC RDW Plt Count Seg Neuts % (Manual) Lymphocytes % (Manual) Seg Neutrophils # Man Lymphocytes # (Manual) Monocytes # (Manual) PT INR D-Dimer ABG pH ABG pO2 ABG HCO3 28.0 H ABG O2 Saturation ABG Base Excess 3.1 H ABG Hemoglobin 5.8 L Oxyhemoglobin 94.8 L Sodium Potassium Chloride Carbon Dioxide BUN Creatinine Glucose POC Glucose 130 H 136 H Lactic Acid Calcium Phosphorus Magnesium AST ALT Alkaline Phosphatase Lactate Dehydrogenase Troponin T C-Reactive Protein NT-Pro-B Natriuret Pep Total Protein Albumin LDL Cholesterol Direct Vitamin B12 Urine WBC (Auto) Fluid Glucose Fluid Total Protein Vancomycin Trough Crossmatch 11/15/21 11/15/21 11/15/21 05:20 05:50 05:50 WBC 19.9 H RBC 3.50 L Hgb 8.2 L Hct 27.9 L MCV MCH 23 L MCHC 29 L RDW 24.9 H Plt Count Seg Neuts % (Manual) Lymphocytes % (Manual) Seg Neutrophils # Man Lymphocytes # (Manual) Monocytes # (Manual) PT INR D-Dimer ABG pH ABG pO2 ABG HCO3 ABG O2 Saturation ABG Base Excess ABG Hemoglobin Oxyhemoglobin Sodium 149 H Potassium Chloride 112.0 H Carbon Dioxide BUN 48 H Creatinine Glucose 152 H POC Glucose 137 H Lactic Acid Calcium 7.9 L Phosphorus Magnesium AST ALT Alkaline Phosphatase Lactate Dehydrogenase Troponin T C-Reactive Protein NT-Pro-B Natriuret Pep Total Protein Albumin LDL Cholesterol Direct Vitamin B12 Urine WBC (Auto) Fluid Glucose Fluid Total Protein Vancomycin Trough Crossmatch 11/15/21 11/15/21 11/15/21 12:12 17:07 23:24 WBC RBC Hgb Hct MCV MCH MCHC RDW Plt Count Seg Neuts % (Manual) Lymphocytes % (Manual) Seg Neutrophils # Man Lymphocytes # (Manual) Monocytes # (Manual) PT INR D-Dimer ABG pH ABG pO2 ABG HCO3 ABG O2 Saturation ABG Base Excess ABG Hemoglobin Oxyhemoglobin Sodium Potassium Chloride Carbon Dioxide BUN Creatinine Glucose POC Glucose 114 H 135 H 123 H Lactic Acid Calcium Phosphorus Magnesium AST ALT Alkaline Phosphatase Lactate Dehydrogenase Troponin T C-Reactive Protein NT-Pro-B Natriuret Pep Total Protein Albumin LDL Cholesterol Direct Vitamin B12 Urine WBC (Auto) Fluid Glucose Fluid Total Protein Vancomycin Trough Crossmatch 11/16/21 11/16/21 11/16/21 05:21 10:00 10:00 WBC 21.7 H RBC 2.57 L Hgb 6.0 L Hct 20.2 L D MCV MCH 24 L MCHC RDW 26.3 H Plt Count Seg Neuts % (Manual) Lymphocytes % (Manual) Seg Neutrophils # Man Lymphocytes # (Manual) Monocytes # (Manual) PT INR D-Dimer ABG pH ABG pO2 ABG HCO3 ABG O2 Saturation ABG Base Excess ABG Hemoglobin Oxyhemoglobin Sodium 153 H Potassium Chloride 114.9 H Carbon Dioxide BUN 74 H Creatinine Glucose 155 H POC Glucose 127 H Lactic Acid Calcium 8.1 L Phosphorus Magnesium AST ALT Alkaline Phosphatase Lactate Dehydrogenase Troponin T C-Reactive Protein NT-Pro-B Natriuret Pep Total Protein Albumin LDL Cholesterol Direct Vitamin B12 Urine WBC (Auto) Fluid Glucose Fluid Total Protein Vancomycin Trough Crossmatch 11/16/21 11/16/21 11/16/21 11:34 14:00 15:25 WBC 17.2 H RBC 2.08 L Hgb 4.7 L* Hct 16.2 L* MCV 78 L MCH 23 L MCHC 29 L RDW 26.0 H Plt Count Seg Neuts % (Manual) 87.0 H Lymphocytes % (Manual) 8.0 L Seg Neutrophils # Man 15.0 H Lymphocytes # (Manual) Monocytes # (Manual) 0.9 H PT INR D-Dimer ABG pH ABG pO2 ABG HCO3 ABG O2 Saturation ABG Base Excess ABG Hemoglobin Oxyhemoglobin Sodium Potassium Chloride Carbon Dioxide BUN Creatinine Glucose POC Glucose 131 H Lactic Acid Calcium Phosphorus Magnesium AST ALT Alkaline Phosphatase Lactate Dehydrogenase Troponin T C-Reactive Protein NT-Pro-B Natriuret Pep Total Protein Albumin LDL Cholesterol Direct Vitamin B12 Urine WBC (Auto) Fluid Glucose Fluid Total Protein Vancomycin Trough Crossmatch See Detail 11/16/21 11/16/21 11/16/21 15:25 17:21 22:43 WBC RBC Hgb 8.6 L D Hct 27.7 L D MCV MCH MCHC RDW Plt Count Seg Neuts % (Manual) Lymphocytes % (Manual) Seg Neutrophils # Man Lymphocytes # (Manual) Monocytes # (Manual) PT INR D-Dimer ABG pH ABG pO2 ABG HCO3 ABG O2 Saturation ABG Base Excess ABG Hemoglobin Oxyhemoglobin Sodium 148 H Potassium Chloride 113.2 H Carbon Dioxide BUN 84 H Creatinine Glucose 164 H POC Glucose 124 H Lactic Acid Calcium 7.6 L Phosphorus Magnesium AST ALT Alkaline Phosphatase Lactate Dehydrogenase Troponin T C-Reactive Protein NT-Pro-B Natriuret Pep Total Protein Albumin LDL Cholesterol Direct Vitamin B12 Urine WBC (Auto) Fluid Glucose Fluid Total Protein Vancomycin Trough Crossmatch 11/16/21 11/17/21 11/17/21 23:07 05:33 05:56 WBC 25.1 H RBC 3.47 L Hgb 8.7 L Hct 28.5 L MCV MCH 25 L MCHC RDW 22.3 H Plt Count Seg Neuts % (Manual) Lymphocytes % (Manual) Seg Neutrophils # Man Lymphocytes # (Manual) Monocytes # (Manual) PT INR D-Dimer ABG pH ABG pO2 ABG HCO3 ABG O2 Saturation ABG Base Excess ABG Hemoglobin Oxyhemoglobin Sodium Potassium Chloride Carbon Dioxide BUN Creatinine Glucose POC Glucose 128 H 133 H Lactic Acid Calcium Phosphorus Magnesium AST ALT Alkaline Phosphatase Lactate Dehydrogenase Troponin T C-Reactive Protein NT-Pro-B Natriuret Pep Total Protein Albumin LDL Cholesterol Direct Vitamin B12 Urine WBC (Auto) Fluid Glucose Fluid Total Protein Vancomycin Trough Crossmatch 11/17/21 11/17/21 11/17/21 05:56 11:00 11:55 WBC RBC Hgb 8.3 L Hct 26.9 L MCV MCH MCHC RDW Plt Count Seg Neuts % (Manual) Lymphocytes % (Manual) Seg Neutrophils # Man Lymphocytes # (Manual) Monocytes # (Manual) PT INR D-Dimer ABG pH ABG pO2 ABG HCO3 ABG O2 Saturation ABG Base Excess ABG Hemoglobin Oxyhemoglobin Sodium 151 H Potassium Chloride 113.6 H Carbon Dioxide BUN 85 H Creatinine Glucose 132 H POC Glucose 121 H Lactic Acid Calcium 7.8 L Phosphorus Magnesium AST ALT Alkaline Phosphatase Lactate Dehydrogenase Troponin T C-Reactive Protein NT-Pro-B Natriuret Pep Total Protein 5.1 L Albumin 2.2 L LDL Cholesterol Direct Vitamin B12 Urine WBC (Auto) Fluid Glucose Fluid Total Protein Vancomycin Trough Crossmatch 11/17/21 11/17/21 11/18/21 18:04 18:55 00:26 WBC RBC Hgb 7.5 L 7.1 L Hct 24.8 L 23.6 L MCV MCH MCHC RDW Plt Count Seg Neuts % (Manual) Lymphocytes % (Manual) Seg Neutrophils # Man Lymphocytes # (Manual) Monocytes # (Manual) PT INR D-Dimer ABG pH ABG pO2 ABG HCO3 ABG O2 Saturation ABG Base Excess ABG Hemoglobin Oxyhemoglobin Sodium Potassium Chloride Carbon Dioxide BUN Creatinine Glucose POC Glucose 144 H Lactic Acid Calcium Phosphorus Magnesium AST ALT Alkaline Phosphatase Lactate Dehydrogenase Troponin T C-Reactive Protein NT-Pro-B Natriuret Pep Total Protein Albumin LDL Cholesterol Direct Vitamin B12 Urine WBC (Auto) Fluid Glucose Fluid Total Protein Vancomycin Trough Crossmatch 11/18/21 11/18/21 11/18/21 00:43 05:10 05:10 WBC 12.5 H RBC 2.39 L Hgb 6.1 L Hct 20.2 L MCV MCH 25 L MCHC RDW 23.2 H Plt Count Seg Neuts % (Manual) Lymphocytes % (Manual) Seg Neutrophils # Man Lymphocytes # (Manual) Monocytes # (Manual) PT INR D-Dimer ABG pH ABG pO2 ABG HCO3 ABG O2 Saturation ABG Base Excess ABG Hemoglobin Oxyhemoglobin Sodium 131 L D Potassium 2.9 L* D Chloride 97.8 L Carbon Dioxide BUN 58 H Creatinine Glucose 665 H* POC Glucose 139 H Lactic Acid Calcium 7.0 L Phosphorus 2.20 L D Magnesium 1.50 L AST ALT Alkaline Phosphatase Lactate Dehydrogenase Troponin T C-Reactive Protein NT-Pro-B Natriuret Pep Total Protein Albumin LDL Cholesterol Direct Vitamin B12 Urine WBC (Auto) Fluid Glucose Fluid Total Protein Vancomycin Trough Crossmatch 11/18/21 11/18/21 11/18/21 05:23 07:10 10:45 WBC RBC Hgb Hct MCV MCH MCHC RDW Plt Count Seg Neuts % (Manual) Lymphocytes % (Manual) Seg Neutrophils # Man Lymphocytes # (Manual) Monocytes # (Manual) PT INR D-Dimer ABG pH ABG pO2 ABG HCO3 ABG O2 Saturation ABG Base Excess ABG Hemoglobin Oxyhemoglobin Sodium 148 H D Potassium 3.1 L Chloride 111.9 H Carbon Dioxide BUN 63 H Creatinine Glucose 141 H POC Glucose 124 H Lactic Acid Calcium 8.1 L D Phosphorus Magnesium AST ALT Alkaline Phosphatase Lactate Dehydrogenase Troponin T C-Reactive Protein NT-Pro-B Natriuret Pep Total Protein Albumin LDL Cholesterol Direct Vitamin B12 Urine WBC (Auto) Fluid Glucose Fluid Total Protein Vancomycin Trough Crossmatch See Detail 11/18/21 11/19/21 11/19/21 11:57 00:19 04:55 WBC RBC 3.35 L Hgb 9.0 L 8.9 L Hct 28.3 L D 28.1 L MCV MCH 27 L MCHC RDW 20.3 H Plt Count Seg Neuts % (Manual) Lymphocytes % (Manual) Seg Neutrophils # Man Lymphocytes # (Manual) Monocytes # (Manual) PT INR D-Dimer ABG pH ABG pO2 ABG HCO3 ABG O2 Saturation ABG Base Excess ABG Hemoglobin Oxyhemoglobin Sodium Potassium Chloride Carbon Dioxide BUN Creatinine Glucose POC Glucose 119 H Lactic Acid Calcium Phosphorus Magnesium AST ALT Alkaline Phosphatase Lactate Dehydrogenase Troponin T C-Reactive Protein NT-Pro-B Natriuret Pep Total Protein Albumin LDL Cholesterol Direct Vitamin B12 Urine WBC (Auto) Fluid Glucose Fluid Total Protein Vancomycin Trough Crossmatch 11/19/21 11/19/21 11/20/21 04:55 05:42 00:55 WBC RBC Hgb 9.0 L Hct 28.6 L MCV MCH MCHC RDW Plt Count Seg Neuts % (Manual) Lymphocytes % (Manual) Seg Neutrophils # Man Lymphocytes # (Manual) Monocytes # (Manual) PT INR D-Dimer ABG pH ABG pO2 ABG HCO3 ABG O2 Saturation ABG Base Excess ABG Hemoglobin Oxyhemoglobin Sodium Potassium 3.5 L Chloride 108.6 H Carbon Dioxide BUN 47 H Creatinine Glucose 207 H POC Glucose 63 L Lactic Acid Calcium 7.1 L Phosphorus Magnesium AST ALT Alkaline Phosphatase Lactate Dehydrogenase Troponin T C-Reactive Protein NT-Pro-B Natriuret Pep Total Protein Albumin LDL Cholesterol Direct Vitamin B12 Urine WBC (Auto) Fluid Glucose Fluid Total Protein Vancomycin Trough Crossmatch 11/20/21 11/20/21 11/20/21 05:40 05:40 Unknown WBC RBC 3.40 L Hgb 9.1 L Hct 28.8 L MCV MCH 27 L MCHC RDW 20.7 H Plt Count Seg Neuts % (Manual) Lymphocytes % (Manual) Seg Neutrophils # Man Lymphocytes # (Manual) Monocytes # (Manual) PT INR D-Dimer ABG pH ABG pO2 ABG HCO3 ABG O2 Saturation ABG Base Excess -2.7 L ABG Hemoglobin 9.5 L Oxyhemoglobin 94.3 L Sodium Potassium 3.5 L Chloride 108.9 H Carbon Dioxide BUN 37 H Creatinine Glucose 117 H POC Glucose Lactic Acid Calcium 7.5 L Phosphorus Magnesium AST ALT Alkaline Phosphatase Lactate Dehydrogenase Troponin T C-Reactive Protein NT-Pro-B Natriuret Pep Total Protein Albumin LDL Cholesterol Direct Vitamin B12 Urine WBC (Auto) Fluid Glucose Fluid Total Protein Vancomycin Trough Crossmatch 11/21/21 11/21/21 11/21/21 04:30 04:30 16:00 WBC RBC 3.25 L Hgb 8.6 L Hct 28.1 L MCV MCH 26 L MCHC RDW 20.7 H Plt Count Seg Neuts % (Manual) Lymphocytes % (Manual) Seg Neutrophils # Man Lymphocytes # (Manual) Monocytes # (Manual) PT INR D-Dimer ABG pH ABG pO2 114.2 H ABG HCO3 ABG O2 Saturation ABG Base Excess ABG Hemoglobin 9.1 L Oxyhemoglobin Sodium 134 L Potassium Chloride Carbon Dioxide 20 L BUN 34 H Creatinine Glucose POC Glucose Lactic Acid Calcium 7.1 L Phosphorus Magnesium AST ALT Alkaline Phosphatase Lactate Dehydrogenase Troponin T C-Reactive Protein NT-Pro-B Natriuret Pep Total Protein Albumin LDL Cholesterol Direct Vitamin B12 Urine WBC (Auto) Fluid Glucose Fluid Total Protein Vancomycin Trough Crossmatch 11/22/21 11/22/21 11/22/21 07:07 07:07 23:54 WBC RBC 3.30 L Hgb 9.0 L Hct 28.5 L MCV MCH 27 L MCHC RDW 21.0 H Plt Count Seg Neuts % (Manual) Lymphocytes % (Manual) Seg Neutrophils # Man Lymphocytes # (Manual) Monocytes # (Manual) PT INR D-Dimer ABG pH ABG pO2 ABG HCO3 ABG O2 Saturation ABG Base Excess ABG Hemoglobin Oxyhemoglobin Sodium Potassium Chloride Carbon Dioxide BUN 32 H Creatinine Glucose 106 H POC Glucose 110 H Lactic Acid Calcium 7.5 L Phosphorus Magnesium AST ALT Alkaline Phosphatase Lactate Dehydrogenase Troponin T C-Reactive Protein NT-Pro-B Natriuret Pep Total Protein Albumin LDL Cholesterol Direct Vitamin B12 Urine WBC (Auto) Fluid Glucose Fluid Total Protein Vancomycin Trough Crossmatch 11/23/21 11/23/21 11/23/21 04:38 04:38 06:01 WBC RBC 3.23 L Hgb 8.8 L Hct 28.0 L MCV MCH 27 L MCHC RDW 21.3 H Plt Count Seg Neuts % (Manual) Lymphocytes % (Manual) Seg Neutrophils # Man Lymphocytes # (Manual) Monocytes # (Manual) PT INR D-Dimer ABG pH ABG pO2 ABG HCO3 ABG O2 Saturation ABG Base Excess ABG Hemoglobin Oxyhemoglobin Sodium 136 L Potassium Chloride Carbon Dioxide 20 L BUN 32 H Creatinine Glucose 109 H POC Glucose 115 H Lactic Acid Calcium 7.7 L Phosphorus Magnesium AST ALT Alkaline Phosphatase Lactate Dehydrogenase Troponin T C-Reactive Protein NT-Pro-B Natriuret Pep Total Protein Albumin LDL Cholesterol Direct Vitamin B12 Urine WBC (Auto) Fluid Glucose Fluid Total Protein Vancomycin Trough Crossmatch 11/23/21 11/24/21 11/24/21 11:40 00:03 04:13 WBC RBC 3.18 L Hgb 8.5 L Hct 27.5 L MCV MCH 27 L MCHC RDW 21.6 H Plt Count Seg Neuts % (Manual) Lymphocytes % (Manual) Seg Neutrophils # Man Lymphocytes # (Manual) Monocytes # (Manual) PT INR D-Dimer ABG pH ABG pO2 ABG HCO3 ABG O2 Saturation ABG Base Excess ABG Hemoglobin Oxyhemoglobin Sodium Potassium Chloride Carbon Dioxide BUN Creatinine Glucose POC Glucose 117 H 111 H Lactic Acid Calcium Phosphorus Magnesium AST ALT Alkaline Phosphatase Lactate Dehydrogenase Troponin T C-Reactive Protein NT-Pro-B Natriuret Pep Total Protein Albumin LDL Cholesterol Direct Vitamin B12 Urine WBC (Auto) Fluid Glucose Fluid Total Protein Vancomycin Trough Crossmatch 11/24/21 11/24/21 11/24/21 04:13 05:30 11:10 WBC RBC Hgb Hct MCV MCH MCHC RDW Plt Count Seg Neuts % (Manual) Lymphocytes % (Manual) Seg Neutrophils # Man Lymphocytes # (Manual) Monocytes # (Manual) PT INR D-Dimer ABG pH ABG pO2 ABG HCO3 ABG O2 Saturation ABG Base Excess ABG Hemoglobin Oxyhemoglobin Sodium Potassium Chloride Carbon Dioxide BUN 31 H Creatinine Glucose 101 H POC Glucose 115 H 107 H Lactic Acid Calcium 7.7 L Phosphorus Magnesium AST ALT Alkaline Phosphatase Lactate Dehydrogenase Troponin T C-Reactive Protein NT-Pro-B Natriuret Pep Total Protein Albumin LDL Cholesterol Direct Vitamin B12 Urine WBC (Auto) Fluid Glucose Fluid Total Protein Vancomycin Trough Crossmatch 11/24/21 11/24/21 11/25/21 16:34 17:57 05:12 WBC RBC 3.11 L Hgb 8.2 L Hct 26.6 L MCV MCH 26 L MCHC RDW 21.3 H Plt Count Seg Neuts % (Manual) Lymphocytes % (Manual) Seg Neutrophils # Man Lymphocytes # (Manual) Monocytes # (Manual) PT INR D-Dimer ABG pH ABG pO2 ABG HCO3 ABG O2 Saturation ABG Base Excess ABG Hemoglobin Oxyhemoglobin Sodium Potassium Chloride Carbon Dioxide BUN Creatinine Glucose POC Glucose 115 H 110 H Lactic Acid Calcium Phosphorus Magnesium AST ALT Alkaline Phosphatase Lactate Dehydrogenase Troponin T C-Reactive Protein NT-Pro-B Natriuret Pep Total Protein Albumin LDL Cholesterol Direct Vitamin B12 Urine WBC (Auto) Fluid Glucose Fluid Total Protein Vancomycin Trough Crossmatch 11/25/21 11/25/21 11/26/21 05:12 11:20 05:00 WBC RBC 3.30 L Hgb 8.8 L Hct 28.2 L MCV MCH 27 L MCHC RDW 20.7 H Plt Count Seg Neuts % (Manual) Lymphocytes % (Manual) Seg Neutrophils # Man Lymphocytes # (Manual) Monocytes # (Manual) PT INR D-Dimer ABG pH ABG pO2 ABG HCO3 ABG O2 Saturation ABG Base Excess ABG Hemoglobin Oxyhemoglobin Sodium Potassium Chloride Carbon Dioxide BUN 32 H Creatinine Glucose 118 H POC Glucose 118 H Lactic Acid Calcium 8.2 L Phosphorus Magnesium AST ALT Alkaline Phosphatase Lactate Dehydrogenase Troponin T C-Reactive Protein NT-Pro-B Natriuret Pep Total Protein Albumin LDL Cholesterol Direct Vitamin B12 Urine WBC (Auto) Fluid Glucose Fluid Total Protein Vancomycin Trough Crossmatch 11/26/21 11/26/21 11/26/21 05:00 05:00 05:44 WBC RBC Hgb Hct MCV MCH MCHC RDW Plt Count Seg Neuts % (Manual) Lymphocytes % (Manual) Seg Neutrophils # Man Lymphocytes # (Manual) Monocytes # (Manual) PT 16.9 H INR 1.24 H D-Dimer ABG pH ABG pO2 ABG HCO3 ABG O2 Saturation ABG Base Excess ABG Hemoglobin Oxyhemoglobin Sodium Potassium Chloride Carbon Dioxide BUN 31 H Creatinine Glucose 104 H POC Glucose 110 H Lactic Acid Calcium 7.9 L Phosphorus Magnesium AST ALT Alkaline Phosphatase Lactate Dehydrogenase Troponin T C-Reactive Protein NT-Pro-B Natriuret Pep Total Protein Albumin LDL Cholesterol Direct Vitamin B12 Urine WBC (Auto) Fluid Glucose Fluid Total Protein Vancomycin Trough Crossmatch 11/26/21 11/27/21 11/27/21 23:55 07:40 07:40 WBC RBC 3.18 L Hgb 8.5 L Hct 27.0 L MCV MCH 27 L MCHC RDW 21.2 H Plt Count Seg Neuts % (Manual) Lymphocytes % (Manual) Seg Neutrophils # Man Lymphocytes # (Manual) Monocytes # (Manual) PT INR D-Dimer ABG pH ABG pO2 ABG HCO3 ABG O2 Saturation ABG Base Excess ABG Hemoglobin Oxyhemoglobin Sodium Potassium Chloride Carbon Dioxide BUN 27 H Creatinine Glucose 112 H POC Glucose 63 L Lactic Acid Calcium 7.6 L Phosphorus Magnesium AST ALT Alkaline Phosphatase Lactate Dehydrogenase Troponin T C-Reactive Protein NT-Pro-B Natriuret Pep Total Protein Albumin LDL Cholesterol Direct Vitamin B12 Urine WBC (Auto) Fluid Glucose Fluid Total Protein Vancomycin Trough Crossmatch 11/27/21 11/27/21 11/27/21 12:04 13:40 13:40 WBC RBC 3.31 L Hgb 8.7 L Hct 28.0 L MCV MCH 26 L MCHC RDW 20.7 H Plt Count Seg Neuts % (Manual) Lymphocytes % (Manual) Seg Neutrophils # Man Lymphocytes # (Manual) Monocytes # (Manual) PT INR D-Dimer ABG pH ABG pO2 ABG HCO3 ABG O2 Saturation ABG Base Excess ABG Hemoglobin Oxyhemoglobin Sodium 136 L Potassium Chloride Carbon Dioxide BUN 25 H Creatinine Glucose 127 H POC Glucose 109 H Lactic Acid Calcium 7.6 L Phosphorus Magnesium 1.40 L AST ALT Alkaline Phosphatase Lactate Dehydrogenase Troponin T C-Reactive Protein NT-Pro-B Natriuret Pep Total Protein Albumin LDL Cholesterol Direct Vitamin B12 Urine WBC (Auto) Fluid Glucose Fluid Total Protein Vancomycin Trough Crossmatch 11/27/21 11/27/21 11/28/21 17:44 23:33 12:20 WBC RBC Hgb Hct MCV MCH MCHC RDW Plt Count Seg Neuts % (Manual) Lymphocytes % (Manual) Seg Neutrophils # Man Lymphocytes # (Manual) Monocytes # (Manual) PT INR D-Dimer ABG pH ABG pO2 ABG HCO3 ABG O2 Saturation ABG Base Excess ABG Hemoglobin Oxyhemoglobin Sodium Potassium Chloride Carbon Dioxide BUN Creatinine Glucose POC Glucose 107 H 108 H 114 H Lactic Acid Calcium Phosphorus Magnesium AST ALT Alkaline Phosphatase Lactate Dehydrogenase Troponin T C-Reactive Protein NT-Pro-B Natriuret Pep Total Protein Albumin LDL Cholesterol Direct Vitamin B12 Urine WBC (Auto) Fluid Glucose Fluid Total Protein Vancomycin Trough Crossmatch 11/29/21 11/29/21 11/29/21 00:09 03:20 03:20 WBC RBC 3.05 L Hgb 8.2 L Hct 25.8 L MCV MCH 27 L MCHC RDW 20.9 H Plt Count Seg Neuts % (Manual) Lymphocytes % (Manual) Seg Neutrophils # Man Lymphocytes # (Manual) Monocytes # (Manual) PT INR D-Dimer ABG pH ABG pO2 ABG HCO3 ABG O2 Saturation ABG Base Excess ABG Hemoglobin Oxyhemoglobin Sodium 133 L Potassium Chloride Carbon Dioxide BUN 24 H Creatinine Glucose 137 H POC Glucose 134 H Lactic Acid Calcium 7.4 L Phosphorus Magnesium AST ALT Alkaline Phosphatase Lactate Dehydrogenase Troponin T C-Reactive Protein NT-Pro-B Natriuret Pep Total Protein Albumin LDL Cholesterol Direct Vitamin B12 Urine WBC (Auto) Fluid Glucose Fluid Total Protein Vancomycin Trough Crossmatch 11/29/21 11/29/21 11/29/21 05:38 11:39 17:11 WBC RBC Hgb Hct MCV MCH MCHC RDW Plt Count Seg Neuts % (Manual) Lymphocytes % (Manual) Seg Neutrophils # Man Lymphocytes # (Manual) Monocytes # (Manual) PT INR D-Dimer ABG pH ABG pO2 ABG HCO3 ABG O2 Saturation ABG Base Excess ABG Hemoglobin Oxyhemoglobin Sodium Potassium Chloride Carbon Dioxide BUN Creatinine Glucose POC Glucose 117 H 143 H 124 H Lactic Acid Calcium Phosphorus Magnesium AST ALT Alkaline Phosphatase Lactate Dehydrogenase Troponin T C-Reactive Protein NT-Pro-B Natriuret Pep Total Protein Albumin LDL Cholesterol Direct Vitamin B12 Urine WBC (Auto) Fluid Glucose Fluid Total Protein Vancomycin Trough Crossmatch 11/29/21 11/30/21 11/30/21 20:15 05:40 05:40 WBC 12.6 H RBC 3.41 L Hgb 9.1 L Hct 28.9 L MCV MCH 27 L MCHC RDW 20.4 H Plt Count Seg Neuts % (Manual) Lymphocytes % (Manual) Seg Neutrophils # Man Lymphocytes # (Manual) Monocytes # (Manual) PT INR D-Dimer ABG pH ABG pO2 ABG HCO3 ABG O2 Saturation ABG Base Excess ABG Hemoglobin Oxyhemoglobin Sodium Potassium Chloride Carbon Dioxide BUN 24 H Creatinine Glucose 131 H POC Glucose Lactic Acid Calcium 7.6 L Phosphorus Magnesium AST ALT Alkaline Phosphatase Lactate Dehydrogenase Troponin T 0.045 H C-Reactive Protein NT-Pro-B Natriuret Pep Total Protein Albumin LDL Cholesterol Direct 25 L Vitamin B12 Urine WBC (Auto) Fluid Glucose Fluid Total Protein Vancomycin Trough Crossmatch 11/30/21 11/30/21 12/01/21 11:29 16:51 05:00 WBC RBC 2.97 L Hgb 8.0 L Hct 25.0 L MCV MCH 27 L MCHC RDW 20.8 H Plt Count Seg Neuts % (Manual) Lymphocytes % (Manual) Seg Neutrophils # Man Lymphocytes # (Manual) Monocytes # (Manual) PT INR D-Dimer ABG pH ABG pO2 ABG HCO3 ABG O2 Saturation ABG Base Excess ABG Hemoglobin Oxyhemoglobin Sodium Potassium Chloride Carbon Dioxide BUN Creatinine Glucose POC Glucose 123 H 114 H Lactic Acid Calcium Phosphorus Magnesium AST ALT Alkaline Phosphatase Lactate Dehydrogenase Troponin T C-Reactive Protein NT-Pro-B Natriuret Pep Total Protein Albumin LDL Cholesterol Direct Vitamin B12 Urine WBC (Auto) Fluid Glucose Fluid Total Protein Vancomycin Trough Crossmatch 12/01/21 12/01/21 12/01/21 05:00 05:25 11:54 WBC RBC Hgb Hct MCV MCH MCHC RDW Plt Count Seg Neuts % (Manual) Lymphocytes % (Manual) Seg Neutrophils # Man Lymphocytes # (Manual) Monocytes # (Manual) PT INR D-Dimer ABG pH ABG pO2 ABG HCO3 ABG O2 Saturation ABG Base Excess ABG Hemoglobin Oxyhemoglobin Sodium 136 L Potassium Chloride Carbon Dioxide BUN 24 H Creatinine Glucose 117 H POC Glucose 108 H 107 H Lactic Acid Calcium 7.5 L Phosphorus Magnesium 1.60 L AST ALT Alkaline Phosphatase Lactate Dehydrogenase Troponin T C-Reactive Protein NT-Pro-B Natriuret Pep Total Protein Albumin LDL Cholesterol Direct Vitamin B12 Urine WBC (Auto) Fluid Glucose Fluid Total Protein Vancomycin Trough Crossmatch 12/01/21 12/02/21 12/02/21 17:40 00:07 04:20 WBC RBC 2.92 L Hgb 7.7 L Hct 24.3 L MCV MCH 26 L MCHC RDW 20.5 H Plt Count Seg Neuts % (Manual) Lymphocytes % (Manual) Seg Neutrophils # Man Lymphocytes # (Manual) Monocytes # (Manual) PT INR D-Dimer ABG pH ABG pO2 ABG HCO3 ABG O2 Saturation ABG Base Excess ABG Hemoglobin Oxyhemoglobin Sodium Potassium Chloride Carbon Dioxide BUN Creatinine Glucose POC Glucose 123 H 110 H Lactic Acid Calcium Phosphorus Magnesium AST ALT Alkaline Phosphatase Lactate Dehydrogenase Troponin T C-Reactive Protein NT-Pro-B Natriuret Pep Total Protein Albumin LDL Cholesterol Direct Vitamin B12 Urine WBC (Auto) Fluid Glucose Fluid Total Protein Vancomycin Trough Crossmatch 12/02/21 12/02/21 12/02/21 04:20 11:17 18:20 WBC RBC Hgb Hct MCV MCH MCHC RDW Plt Count Seg Neuts % (Manual) Lymphocytes % (Manual) Seg Neutrophils # Man Lymphocytes # (Manual) Monocytes # (Manual) PT INR D-Dimer ABG pH ABG pO2 ABG HCO3 ABG O2 Saturation ABG Base Excess ABG Hemoglobin Oxyhemoglobin Sodium 135 L Potassium Chloride Carbon Dioxide BUN 26 H Creatinine Glucose 121 H POC Glucose 117 H 113 H Lactic Acid Calcium 7.4 L Phosphorus Magnesium AST ALT Alkaline Phosphatase Lactate Dehydrogenase Troponin T C-Reactive Protein NT-Pro-B Natriuret Pep Total Protein Albumin LDL Cholesterol Direct Vitamin B12 Urine WBC (Auto) Fluid Glucose Fluid Total Protein Vancomycin Trough Crossmatch 12/03/21 12/03/21 12/03/21 00:12 04:00 04:00 WBC RBC 2.99 L Hgb 7.8 L Hct 24.6 L MCV MCH 26 L MCHC RDW 20.2 H Plt Count Seg Neuts % (Manual) Lymphocytes % (Manual) Seg Neutrophils # Man Lymphocytes # (Manual) Monocytes # (Manual) PT INR D-Dimer ABG pH ABG pO2 ABG HCO3 ABG O2 Saturation ABG Base Excess ABG Hemoglobin Oxyhemoglobin Sodium 136 L Potassium Chloride Carbon Dioxide BUN 27 H Creatinine Glucose 133 H POC Glucose 121 H Lactic Acid Calcium 7.5 L Phosphorus Magnesium AST ALT Alkaline Phosphatase Lactate Dehydrogenase Troponin T C-Reactive Protein NT-Pro-B Natriuret Pep Total Protein Albumin LDL Cholesterol Direct Vitamin B12 Urine WBC (Auto) Fluid Glucose Fluid Total Protein Vancomycin Trough Crossmatch 12/03/21 12/03/21 12/03/21 06:30 11:13 16:00 WBC RBC Hgb Hct MCV MCH MCHC RDW Plt Count Seg Neuts % (Manual) Lymphocytes % (Manual) Seg Neutrophils # Man Lymphocytes # (Manual) Monocytes # (Manual) PT INR D-Dimer ABG pH ABG pO2 ABG HCO3 ABG O2 Saturation ABG Base Excess ABG Hemoglobin Oxyhemoglobin Sodium Potassium Chloride Carbon Dioxide BUN Creatinine Glucose POC Glucose 129 H 125 H 125 H Lactic Acid Calcium Phosphorus Magnesium AST ALT Alkaline Phosphatase Lactate Dehydrogenase Troponin T C-Reactive Protein NT-Pro-B Natriuret Pep Total Protein Albumin LDL Cholesterol Direct Vitamin B12 Urine WBC (Auto) Fluid Glucose Fluid Total Protein Vancomycin Trough Crossmatch 12/03/21 12/04/21 12/04/21 23:32 04:00 05:36 WBC RBC Hgb Hct MCV MCH MCHC RDW Plt Count Seg Neuts % (Manual) Lymphocytes % (Manual) Seg Neutrophils # Man Lymphocytes # (Manual) Monocytes # (Manual) PT INR D-Dimer ABG pH ABG pO2 ABG HCO3 ABG O2 Saturation ABG Base Excess ABG Hemoglobin Oxyhemoglobin Sodium Potassium 3.5 L Chloride Carbon Dioxide BUN 26 H Creatinine 0.5 L Glucose 151 H POC Glucose 133 H 142 H Lactic Acid Calcium 8.3 L Phosphorus Magnesium AST ALT Alkaline Phosphatase Lactate Dehydrogenase Troponin T C-Reactive Protein NT-Pro-B Natriuret Pep Total Protein Albumin LDL Cholesterol Direct Vitamin B12 Urine WBC (Auto) Fluid Glucose Fluid Total Protein Vancomycin Trough Crossmatch 12/04/21 12/04/21 12/05/21 11:24 15:58 04:36 WBC RBC Hgb Hct MCV MCH MCHC RDW Plt Count Seg Neuts % (Manual) Lymphocytes % (Manual) Seg Neutrophils # Man Lymphocytes # (Manual) Monocytes # (Manual) PT INR D-Dimer ABG pH ABG pO2 ABG HCO3 ABG O2 Saturation ABG Base Excess ABG Hemoglobin Oxyhemoglobin Sodium Potassium Chloride Carbon Dioxide BUN 21 H Creatinine 0.5 L Glucose 119 H POC Glucose 130 H 111 H Lactic Acid Calcium 8.3 L Phosphorus Magnesium AST ALT Alkaline Phosphatase Lactate Dehydrogenase Troponin T C-Reactive Protein NT-Pro-B Natriuret Pep Total Protein Albumin LDL Cholesterol Direct Vitamin B12 Urine WBC (Auto) Fluid Glucose Fluid Total Protein Vancomycin Trough Crossmatch 12/05/21 12/05/21 12/05/21 05:15 10:40 11:12 WBC RBC 2.98 L Hgb 8.1 L Hct 24.6 L MCV MCH 27 L MCHC RDW 20.8 H Plt Count Seg Neuts % (Manual) Lymphocytes % (Manual) Seg Neutrophils # Man Lymphocytes # (Manual) Monocytes # (Manual) PT INR D-Dimer ABG pH ABG pO2 ABG HCO3 ABG O2 Saturation ABG Base Excess ABG Hemoglobin Oxyhemoglobin Sodium Potassium Chloride Carbon Dioxide BUN Creatinine Glucose POC Glucose 107 H 110 H Lactic Acid Calcium Phosphorus Magnesium AST ALT Alkaline Phosphatase Lactate Dehydrogenase Troponin T C-Reactive Protein NT-Pro-B Natriuret Pep Total Protein Albumin LDL Cholesterol Direct Vitamin B12 Urine WBC (Auto) Fluid Glucose Fluid Total Protein Vancomycin Trough Crossmatch 12/05/21 12/06/21 12/06/21 23:39 04:25 04:25 WBC RBC 2.95 L Hgb 7.9 L Hct 24.7 L MCV MCH 27 L MCHC RDW 20.9 H Plt Count Seg Neuts % (Manual) Lymphocytes % (Manual) Seg Neutrophils # Man Lymphocytes # (Manual) Monocytes # (Manual) PT INR D-Dimer ABG pH ABG pO2 ABG HCO3 ABG O2 Saturation ABG Base Excess ABG Hemoglobin Oxyhemoglobin Sodium Potassium Chloride Carbon Dioxide BUN 22 H Creatinine 0.5 L Glucose 136 H POC Glucose 118 H Lactic Acid Calcium 8.2 L Phosphorus Magnesium AST ALT Alkaline Phosphatase Lactate Dehydrogenase Troponin T C-Reactive Protein NT-Pro-B Natriuret Pep Total Protein Albumin LDL Cholesterol Direct Vitamin B12 Urine WBC (Auto) Fluid Glucose Fluid Total Protein Vancomycin Trough Crossmatch 12/06/21 12/06/21 12/07/21 05:28 11:27 04:00 WBC RBC Hgb 7.2 L Hct 21.8 L MCV MCH MCHC RDW Plt Count Seg Neuts % (Manual) Lymphocytes % (Manual) Seg Neutrophils # Man Lymphocytes # (Manual) Monocytes # (Manual) PT INR D-Dimer ABG pH ABG pO2 ABG HCO3 ABG O2 Saturation ABG Base Excess ABG Hemoglobin Oxyhemoglobin Sodium Potassium Chloride Carbon Dioxide BUN Creatinine Glucose POC Glucose 142 H 126 H Lactic Acid Calcium Phosphorus Magnesium AST ALT Alkaline Phosphatase Lactate Dehydrogenase Troponin T C-Reactive Protein NT-Pro-B Natriuret Pep Total Protein Albumin LDL Cholesterol Direct Vitamin B12 Urine WBC (Auto) Fluid Glucose Fluid Total Protein Vancomycin Trough Crossmatch 12/07/21 12/07/21 12/07/21 04:00 05:30 11:12 WBC RBC Hgb Hct MCV MCH MCHC RDW Plt Count Seg Neuts % (Manual) Lymphocytes % (Manual) Seg Neutrophils # Man Lymphocytes # (Manual) Monocytes # (Manual) PT INR D-Dimer ABG pH ABG pO2 ABG HCO3 ABG O2 Saturation ABG Base Excess ABG Hemoglobin Oxyhemoglobin Sodium Potassium Chloride Carbon Dioxide BUN 22 H Creatinine Glucose 119 H POC Glucose 121 H 124 H Lactic Acid Calcium 8.0 L Phosphorus Magnesium AST ALT Alkaline Phosphatase Lactate Dehydrogenase Troponin T C-Reactive Protein NT-Pro-B Natriuret Pep Total Protein Albumin LDL Cholesterol Direct Vitamin B12 Urine WBC (Auto) Fluid Glucose Fluid Total Protein Vancomycin Trough Crossmatch 12/08/21 12/08/21 12/08/21 04:00 04:00 05:39 WBC RBC 2.81 L Hgb 7.7 L Hct 23.5 L MCV MCH MCHC RDW 21.2 H Plt Count Seg Neuts % (Manual) Lymphocytes % (Manual) Seg Neutrophils # Man Lymphocytes # (Manual) Monocytes # (Manual) PT INR D-Dimer ABG pH ABG pO2 ABG HCO3 ABG O2 Saturation ABG Base Excess ABG Hemoglobin Oxyhemoglobin Sodium 135 L Potassium Chloride Carbon Dioxide BUN 23 H Creatinine Glucose 109 H POC Glucose 112 H Lactic Acid Calcium Phosphorus Magnesium AST ALT Alkaline Phosphatase Lactate Dehydrogenase Troponin T C-Reactive Protein NT-Pro-B Natriuret Pep Total Protein Albumin LDL Cholesterol Direct Vitamin B12 Urine WBC (Auto) Fluid Glucose Fluid Total Protein Vancomycin Trough Crossmatch 12/08/21 12/09/21 12/09/21 11:03 04:20 04:20 WBC RBC 2.67 L Hgb 7.6 L Hct 22.1 L MCV MCH MCHC RDW 20.8 H Plt Count Seg Neuts % (Manual) Lymphocytes % (Manual) Seg Neutrophils # Man Lymphocytes # (Manual) Monocytes # (Manual) PT INR D-Dimer ABG pH ABG pO2 ABG HCO3 ABG O2 Saturation ABG Base Excess ABG Hemoglobin Oxyhemoglobin Sodium 135 L Potassium Chloride 97.8 L Carbon Dioxide BUN 26 H Creatinine Glucose 119 H POC Glucose 108 H Lactic Acid Calcium 7.7 L Phosphorus Magnesium AST ALT Alkaline Phosphatase Lactate Dehydrogenase Troponin T C-Reactive Protein NT-Pro-B Natriuret Pep Total Protein Albumin LDL Cholesterol Direct Vitamin B12 Urine WBC (Auto) Fluid Glucose Fluid Total Protein Vancomycin Trough Crossmatch 12/09/21 12/10/21 12/10/21 11:26 04:33 11:12 WBC RBC Hgb Hct MCV MCH MCHC RDW Plt Count Seg Neuts % (Manual) Lymphocytes % (Manual) Seg Neutrophils # Man Lymphocytes # (Manual) Monocytes # (Manual) PT INR D-Dimer ABG pH ABG pO2 ABG HCO3 ABG O2 Saturation ABG Base Excess ABG Hemoglobin Oxyhemoglobin Sodium 136 L Potassium Chloride Carbon Dioxide BUN 27 H Creatinine Glucose 117 H POC Glucose 110 H 117 H Lactic Acid Calcium 8.2 L Phosphorus Magnesium AST ALT Alkaline Phosphatase Lactate Dehydrogenase Troponin T C-Reactive Protein NT-Pro-B Natriuret Pep Total Protein Albumin LDL Cholesterol Direct Vitamin B12 Urine WBC (Auto) Fluid Glucose Fluid Total Protein Vancomycin Trough Crossmatch 12/10/21 12/10/21 12/11/21 16:02 23:31 04:35 WBC RBC 2.57 L Hgb 7.0 L Hct 21.4 L MCV MCH 27 L MCHC RDW 21.1 H Plt Count Seg Neuts % (Manual) Lymphocytes % (Manual) Seg Neutrophils # Man Lymphocytes # (Manual) Monocytes # (Manual) PT INR D-Dimer ABG pH ABG pO2 ABG HCO3 ABG O2 Saturation ABG Base Excess ABG Hemoglobin Oxyhemoglobin Sodium Potassium Chloride Carbon Dioxide BUN Creatinine Glucose POC Glucose 137 H 111 H Lactic Acid Calcium Phosphorus Magnesium AST ALT Alkaline Phosphatase Lactate Dehydrogenase Troponin T C-Reactive Protein NT-Pro-B Natriuret Pep Total Protein Albumin LDL Cholesterol Direct Vitamin B12 Urine WBC (Auto) Fluid Glucose Fluid Total Protein Vancomycin Trough Crossmatch 12/11/21 12/11/21 12/11/21 04:35 12:46 16:07 WBC RBC Hgb Hct MCV MCH MCHC RDW Plt Count Seg Neuts % (Manual) Lymphocytes % (Manual) Seg Neutrophils # Man Lymphocytes # (Manual) Monocytes # (Manual) PT INR D-Dimer ABG pH ABG pO2 ABG HCO3 ABG O2 Saturation ABG Base Excess ABG Hemoglobin Oxyhemoglobin Sodium 136 L Potassium Chloride Carbon Dioxide BUN 27 H Creatinine Glucose 112 H POC Glucose 115 H 111 H Lactic Acid Calcium 7.6 L Phosphorus Magnesium AST ALT Alkaline Phosphatase Lactate Dehydrogenase Troponin T C-Reactive Protein NT-Pro-B Natriuret Pep Total Protein Albumin LDL Cholesterol Direct Vitamin B12 Urine WBC (Auto) Fluid Glucose Fluid Total Protein Vancomycin Trough Crossmatch 12/11/21 12/12/21 12/12/21 23:42 04:30 04:30 WBC RBC 2.60 L Hgb 7.1 L Hct 21.5 L MCV MCH 27 L MCHC RDW 20.3 H Plt Count Seg Neuts % (Manual) Lymphocytes % (Manual) Seg Neutrophils # Man Lymphocytes # (Manual) Monocytes # (Manual) PT INR D-Dimer ABG pH ABG pO2 ABG HCO3 ABG O2 Saturation ABG Base Excess ABG Hemoglobin Oxyhemoglobin Sodium 135 L Potassium Chloride 97.9 L Carbon Dioxide BUN 26 H Creatinine 0.5 L Glucose 138 H POC Glucose 115 H Lactic Acid Calcium 8.2 L Phosphorus Magnesium AST ALT Alkaline Phosphatase Lactate Dehydrogenase Troponin T C-Reactive Protein NT-Pro-B Natriuret Pep Total Protein Albumin LDL Cholesterol Direct Vitamin B12 Urine WBC (Auto) Fluid Glucose Fluid Total Protein Vancomycin Trough Crossmatch 12/12/21 12/12/21 12/12/21 04:30 05:10 11:51 WBC RBC Hgb Hct MCV MCH MCHC RDW Plt Count Seg Neuts % (Manual) Lymphocytes % (Manual) Seg Neutrophils # Man Lymphocytes # (Manual) Monocytes # (Manual) PT INR D-Dimer ABG pH ABG pO2 ABG HCO3 ABG O2 Saturation ABG Base Excess ABG Hemoglobin Oxyhemoglobin Sodium Potassium Chloride Carbon Dioxide BUN Creatinine Glucose POC Glucose 119 H 119 H Lactic Acid Calcium Phosphorus Magnesium AST ALT Alkaline Phosphatase Lactate Dehydrogenase Troponin T C-Reactive Protein NT-Pro-B Natriuret Pep Total Protein Albumin LDL Cholesterol Direct Vitamin B12 Urine WBC (Auto) Fluid Glucose Fluid Total Protein Vancomycin Trough Crossmatch See Detail 12/13/21 12/13/21 12/13/21 00:52 04:00 04:00 WBC RBC 2.73 L Hgb 7.4 L Hct 22.8 L MCV MCH 27 L MCHC RDW 20.5 H Plt Count Seg Neuts % (Manual) Lymphocytes % (Manual) Seg Neutrophils # Man Lymphocytes # (Manual) Monocytes # (Manual) PT INR D-Dimer ABG pH ABG pO2 ABG HCO3 ABG O2 Saturation ABG Base Excess ABG Hemoglobin Oxyhemoglobin Sodium 134 L Potassium Chloride 96.7 L Carbon Dioxide BUN 23 H Creatinine 0.5 L Glucose 131 H POC Glucose 131 H Lactic Acid Calcium 8.1 L Phosphorus Magnesium AST ALT Alkaline Phosphatase Lactate Dehydrogenase Troponin T C-Reactive Protein NT-Pro-B Natriuret Pep Total Protein Albumin LDL Cholesterol Direct Vitamin B12 Urine WBC (Auto) Fluid Glucose Fluid Total Protein Vancomycin Trough Crossmatch 12/13/21 12/13/21 12/13/21 05:23 12:11 17:18 WBC RBC Hgb Hct MCV MCH MCHC RDW Plt Count Seg Neuts % (Manual) Lymphocytes % (Manual) Seg Neutrophils # Man Lymphocytes # (Manual) Monocytes # (Manual) PT INR D-Dimer ABG pH ABG pO2 ABG HCO3 ABG O2 Saturation ABG Base Excess ABG Hemoglobin Oxyhemoglobin Sodium Potassium Chloride Carbon Dioxide BUN Creatinine Glucose POC Glucose 121 H 143 H 148 H Lactic Acid Calcium Phosphorus Magnesium AST ALT Alkaline Phosphatase Lactate Dehydrogenase Troponin T C-Reactive Protein NT-Pro-B Natriuret Pep Total Protein Albumin LDL Cholesterol Direct Vitamin B12 Urine WBC (Auto) Fluid Glucose Fluid Total Protein Vancomycin Trough Crossmatch 12/14/21 12/14/21 12/14/21 00:54 04:20 04:20 WBC RBC 2.39 L Hgb 6.5 L Hct 20.3 L MCV MCH 27 L MCHC RDW 20.3 H Plt Count Seg Neuts % (Manual) Lymphocytes % (Manual) Seg Neutrophils # Man Lymphocytes # (Manual) Monocytes # (Manual) PT INR D-Dimer ABG pH ABG pO2 ABG HCO3 ABG O2 Saturation ABG Base Excess ABG Hemoglobin Oxyhemoglobin Sodium 130 L Potassium Chloride 93.5 L Carbon Dioxide BUN 25 H Creatinine Glucose 123 H POC Glucose 123 H Lactic Acid Calcium 8.0 L Phosphorus Magnesium AST ALT Alkaline Phosphatase Lactate Dehydrogenase Troponin T C-Reactive Protein NT-Pro-B Natriuret Pep Total Protein Albumin LDL Cholesterol Direct Vitamin B12 Urine WBC (Auto) Fluid Glucose Fluid Total Protein Vancomycin Trough Crossmatch 12/14/21 12/14/21 12/14/21 05:06 08:17 10:30 WBC RBC Hgb Hct MCV MCH MCHC RDW Plt Count Seg Neuts % (Manual) Lymphocytes % (Manual) Seg Neutrophils # Man Lymphocytes # (Manual) Monocytes # (Manual) PT INR D-Dimer ABG pH ABG pO2 ABG HCO3 ABG O2 Saturation ABG Base Excess ABG Hemoglobin Oxyhemoglobin Sodium Potassium Chloride Carbon Dioxide BUN Creatinine Glucose POC Glucose 131 H 119 H Lactic Acid Calcium Phosphorus Magnesium AST ALT Alkaline Phosphatase Lactate Dehydrogenase Troponin T C-Reactive Protein NT-Pro-B Natriuret Pep Total Protein Albumin LDL Cholesterol Direct Vitamin B12 Urine WBC (Auto) Fluid Glucose Fluid Total Protein Vancomycin Trough Crossmatch See Detail 12/14/21 12/14/21 12/14/21 12:15 16:37 23:27 WBC RBC Hgb Hct MCV MCH MCHC RDW Plt Count Seg Neuts % (Manual) Lymphocytes % (Manual) Seg Neutrophils # Man Lymphocytes # (Manual) Monocytes # (Manual) PT INR D-Dimer ABG pH ABG pO2 ABG HCO3 ABG O2 Saturation ABG Base Excess ABG Hemoglobin Oxyhemoglobin Sodium Potassium Chloride Carbon Dioxide BUN Creatinine Glucose POC Glucose 147 H 141 H 130 H Lactic Acid Calcium Phosphorus Magnesium AST ALT Alkaline Phosphatase Lactate Dehydrogenase Troponin T C-Reactive Protein NT-Pro-B Natriuret Pep Total Protein Albumin LDL Cholesterol Direct Vitamin B12 Urine WBC (Auto) Fluid Glucose Fluid Total Protein Vancomycin Trough Crossmatch 12/15/21 12/15/21 12/15/21 05:00 07:00 07:00 WBC 12.3 H RBC 3.27 L Hgb 8.8 L Hct 27.5 L D MCV MCH 27 L MCHC RDW 19.0 H Plt Count Seg Neuts % (Manual) Lymphocytes % (Manual) Seg Neutrophils # Man Lymphocytes # (Manual) Monocytes # (Manual) PT INR D-Dimer ABG pH ABG pO2 ABG HCO3 ABG O2 Saturation ABG Base Excess ABG Hemoglobin Oxyhemoglobin Sodium 134 L Potassium Chloride 95.7 L Carbon Dioxide BUN 28 H Creatinine Glucose 129 H POC Glucose 129 H Lactic Acid Calcium 8.2 L Phosphorus Magnesium AST ALT Alkaline Phosphatase Lactate Dehydrogenase Troponin T C-Reactive Protein NT-Pro-B Natriuret Pep Total Protein Albumin LDL Cholesterol Direct Vitamin B12 Urine WBC (Auto) Fluid Glucose Fluid Total Protein Vancomycin Trough Crossmatch 12/15/21 12/15/21 12/15/21 11:18 16:00 23:39 WBC RBC Hgb Hct MCV MCH MCHC RDW Plt Count Seg Neuts % (Manual) Lymphocytes % (Manual) Seg Neutrophils # Man Lymphocytes # (Manual) Monocytes # (Manual) PT INR D-Dimer ABG pH ABG pO2 ABG HCO3 ABG O2 Saturation ABG Base Excess ABG Hemoglobin Oxyhemoglobin Sodium Potassium Chloride Carbon Dioxide BUN Creatinine Glucose POC Glucose 139 H 137 H 146 H Lactic Acid Calcium Phosphorus Magnesium AST ALT Alkaline Phosphatase Lactate Dehydrogenase Troponin T C-Reactive Protein NT-Pro-B Natriuret Pep Total Protein Albumin LDL Cholesterol Direct Vitamin B12 Urine WBC (Auto) Fluid Glucose Fluid Total Protein Vancomycin Trough Crossmatch 12/16/21 12/16/21 12/16/21 05:24 10:21 10:21 WBC 15.3 H RBC 3.24 L Hgb 8.9 L Hct 27.7 L MCV MCH MCHC RDW 19.0 H Plt Count Seg Neuts % (Manual) Lymphocytes % (Manual) Seg Neutrophils # Man Lymphocytes # (Manual) Monocytes # (Manual) PT INR D-Dimer ABG pH ABG pO2 ABG HCO3 ABG O2 Saturation ABG Base Excess ABG Hemoglobin Oxyhemoglobin Sodium 131 L Potassium 3.5 L Chloride 92.7 L Carbon Dioxide BUN 36 H Creatinine Glucose 160 H POC Glucose 121 H Lactic Acid Calcium Phosphorus Magnesium 1.60 L AST ALT Alkaline Phosphatase Lactate Dehydrogenase Troponin T C-Reactive Protein NT-Pro-B Natriuret Pep Total Protein Albumin LDL Cholesterol Direct Vitamin B12 Urine WBC (Auto) Fluid Glucose Fluid Total Protein Vancomycin Trough Crossmatch 12/16/21 12/16/21 12/16/21 11:21 18:28 20:52 WBC RBC Hgb Hct MCV MCH MCHC RDW Plt Count Seg Neuts % (Manual) Lymphocytes % (Manual) Seg Neutrophils # Man Lymphocytes # (Manual) Monocytes # (Manual) PT INR D-Dimer ABG pH 7.479 H ABG pO2 79.3 L ABG HCO3 27.3 H ABG O2 Saturation ABG Base Excess 3.6 H ABG Hemoglobin 9.1 L Oxyhemoglobin 94.9 L Sodium Potassium Chloride Carbon Dioxide BUN Creatinine Glucose POC Glucose 153 H 132 H Lactic Acid Calcium Phosphorus Magnesium AST ALT Alkaline Phosphatase Lactate Dehydrogenase Troponin T C-Reactive Protein NT-Pro-B Natriuret Pep Total Protein Albumin LDL Cholesterol Direct Vitamin B12 Urine WBC (Auto) Fluid Glucose Fluid Total Protein Vancomycin Trough Crossmatch 12/16/21 12/17/21 12/17/21 23:30 04:25 04:25 WBC 12.3 H RBC 2.16 L Hgb 6.0 L Hct 18.1 L* D MCV MCH MCHC RDW 19.4 H Plt Count Seg Neuts % (Manual) Lymphocytes % (Manual) Seg Neutrophils # Man Lymphocytes # (Manual) Monocytes # (Manual) PT INR D-Dimer ABG pH ABG pO2 ABG HCO3 ABG O2 Saturation ABG Base Excess ABG Hemoglobin Oxyhemoglobin Sodium 132 L Potassium 3.2 L Chloride 112.0 H Carbon Dioxide BUN 32 H Creatinine Glucose 122 H POC Glucose 137 H Lactic Acid Calcium 6.8 L D Phosphorus Magnesium AST ALT Alkaline Phosphatase Lactate Dehydrogenase Troponin T C-Reactive Protein NT-Pro-B Natriuret Pep Total Protein Albumin LDL Cholesterol Direct Vitamin B12 Urine WBC (Auto) Fluid Glucose Fluid Total Protein Vancomycin Trough Crossmatch 12/17/21 12/17/21 12/17/21 05:30 11:49 14:45 WBC RBC Hgb 9.7 L D Hct MCV MCH MCHC RDW Plt Count Seg Neuts % (Manual) Lymphocytes % (Manual) Seg Neutrophils # Man Lymphocytes # (Manual) Monocytes # (Manual) PT INR D-Dimer ABG pH ABG pO2 ABG HCO3 ABG O2 Saturation ABG Base Excess ABG Hemoglobin Oxyhemoglobin Sodium Potassium Chloride Carbon Dioxide BUN Creatinine Glucose POC Glucose 137 H 143 H Lactic Acid Calcium Phosphorus Magnesium AST ALT Alkaline Phosphatase Lactate Dehydrogenase Troponin T C-Reactive Protein NT-Pro-B Natriuret Pep Total Protein Albumin LDL Cholesterol Direct Vitamin B12 Urine WBC (Auto) Fluid Glucose Fluid Total Protein Vancomycin Trough Crossmatch 12/17/21 12/18/21 12/18/21 17:01 05:04 05:04 WBC 13.8 H RBC 3.44 L Hgb 9.9 L Hct 28.8 L MCV MCH MCHC RDW 18.1 H Plt Count Seg Neuts % (Manual) Lymphocytes % (Manual) Seg Neutrophils # Man Lymphocytes # (Manual) Monocytes # (Manual) PT INR D-Dimer ABG pH ABG pO2 ABG HCO3 ABG O2 Saturation ABG Base Excess ABG Hemoglobin Oxyhemoglobin Sodium 132 L Potassium Chloride 97.4 L Carbon Dioxide BUN 38 H Creatinine Glucose 134 H POC Glucose 132 H Lactic Acid Calcium Phosphorus Magnesium AST ALT Alkaline Phosphatase Lactate Dehydrogenase Troponin T C-Reactive Protein NT-Pro-B Natriuret Pep Total Protein Albumin LDL Cholesterol Direct Vitamin B12 Urine WBC (Auto) Fluid Glucose Fluid Total Protein Vancomycin Trough Crossmatch 12/18/21 12/18/21 12/18/21 05:28 10:57 16:27 WBC RBC Hgb Hct MCV MCH MCHC RDW Plt Count Seg Neuts % (Manual) Lymphocytes % (Manual) Seg Neutrophils # Man Lymphocytes # (Manual) Monocytes # (Manual) PT INR D-Dimer ABG pH ABG pO2 ABG HCO3 ABG O2 Saturation ABG Base Excess ABG Hemoglobin Oxyhemoglobin Sodium Potassium Chloride Carbon Dioxide BUN Creatinine Glucose POC Glucose 118 H 132 H 130 H Lactic Acid Calcium Phosphorus Magnesium AST ALT Alkaline Phosphatase Lactate Dehydrogenase Troponin T C-Reactive Protein NT-Pro-B Natriuret Pep Total Protein Albumin LDL Cholesterol Direct Vitamin B12 Urine WBC (Auto) Fluid Glucose Fluid Total Protein Vancomycin Trough Crossmatch 12/19/21 12/19/21 12/19/21 00:02 04:41 04:41 WBC 16.0 H RBC 3.45 L Hgb 9.7 L Hct 29.1 L MCV MCH MCHC RDW 17.8 H Plt Count Seg Neuts % (Manual) Lymphocytes % (Manual) Seg Neutrophils # Man Lymphocytes # (Manual) Monocytes # (Manual) PT INR D-Dimer ABG pH ABG pO2 ABG HCO3 ABG O2 Saturation ABG Base Excess ABG Hemoglobin Oxyhemoglobin Sodium 133 L Potassium Chloride 97.9 L Carbon Dioxide BUN 36 H Creatinine 0.5 L Glucose 126 H POC Glucose 127 H Lactic Acid Calcium 8.3 L Phosphorus Magnesium AST ALT Alkaline Phosphatase Lactate Dehydrogenase Troponin T C-Reactive Protein NT-Pro-B Natriuret Pep Total Protein Albumin LDL Cholesterol Direct Vitamin B12 Urine WBC (Auto) Fluid Glucose Fluid Total Protein Vancomycin Trough Crossmatch 12/19/21 12/19/21 12/19/21 05:26 12:20 16:43 WBC RBC Hgb Hct MCV MCH MCHC RDW Plt Count Seg Neuts % (Manual) Lymphocytes % (Manual) Seg Neutrophils # Man Lymphocytes # (Manual) Monocytes # (Manual) PT INR D-Dimer ABG pH ABG pO2 ABG HCO3 ABG O2 Saturation ABG Base Excess ABG Hemoglobin Oxyhemoglobin Sodium Potassium Chloride Carbon Dioxide BUN Creatinine Glucose POC Glucose 119 H 145 H 126 H Lactic Acid Calcium Phosphorus Magnesium AST ALT Alkaline Phosphatase Lactate Dehydrogenase Troponin T C-Reactive Protein NT-Pro-B Natriuret Pep Total Protein Albumin LDL Cholesterol Direct Vitamin B12 Urine WBC (Auto) Fluid Glucose Fluid Total Protein Vancomycin Trough Crossmatch 12/19/21 12/20/21 12/20/21 23:30 04:54 04:54 WBC 12.3 H RBC 3.54 L Hgb 10.0 L Hct 29.5 L MCV MCH MCHC RDW 17.8 H Plt Count Seg Neuts % (Manual) 88.0 H Lymphocytes % (Manual) 6.0 L Seg Neutrophils # Man 10.8 H Lymphocytes # (Manual) 0.7 L Monocytes # (Manual) PT INR D-Dimer ABG pH ABG pO2 ABG HCO3 ABG O2 Saturation ABG Base Excess ABG Hemoglobin Oxyhemoglobin Sodium 131 L Potassium Chloride 96.2 L Carbon Dioxide BUN 36 H Creatinine 0.5 L Glucose 130 H POC Glucose 117 H Lactic Acid Calcium Phosphorus Magnesium AST ALT Alkaline Phosphatase Lactate Dehydrogenase Troponin T C-Reactive Protein NT-Pro-B Natriuret Pep Total Protein Albumin LDL Cholesterol Direct Vitamin B12 Urine WBC (Auto) Fluid Glucose Fluid Total Protein Vancomycin Trough Crossmatch 12/20/21 12/20/21 12/20/21 05:20 11:51 17:30 WBC RBC Hgb Hct MCV MCH MCHC RDW Plt Count Seg Neuts % (Manual) Lymphocytes % (Manual) Seg Neutrophils # Man Lymphocytes # (Manual) Monocytes # (Manual) PT INR D-Dimer ABG pH ABG pO2 ABG HCO3 ABG O2 Saturation ABG Base Excess ABG Hemoglobin Oxyhemoglobin Sodium Potassium Chloride Carbon Dioxide BUN Creatinine Glucose POC Glucose 126 H 119 H 127 H Lactic Acid Calcium Phosphorus Magnesium AST ALT Alkaline Phosphatase Lactate Dehydrogenase Troponin T C-Reactive Protein NT-Pro-B Natriuret Pep Total Protein Albumin LDL Cholesterol Direct Vitamin B12 Urine WBC (Auto) Fluid Glucose Fluid Total Protein Vancomycin Trough Crossmatch 12/21/21 12/21/21 12/21/21 00:45 04:21 04:21 WBC RBC 3.47 L Hgb 9.4 L Hct 29.2 L MCV MCH 27 L MCHC RDW 18.1 H Plt Count Seg Neuts % (Manual) Lymphocytes % (Manual) Seg Neutrophils # Man Lymphocytes # (Manual) Monocytes # (Manual) PT INR D-Dimer ABG pH ABG pO2 ABG HCO3 ABG O2 Saturation ABG Base Excess ABG Hemoglobin Oxyhemoglobin Sodium 134 L Potassium Chloride Carbon Dioxide BUN 35 H Creatinine 0.5 L Glucose 122 H POC Glucose 125 H Lactic Acid Calcium 8.2 L Phosphorus Magnesium AST ALT Alkaline Phosphatase Lactate Dehydrogenase Troponin T C-Reactive Protein NT-Pro-B Natriuret Pep Total Protein Albumin LDL Cholesterol Direct Vitamin B12 Urine WBC (Auto) Fluid Glucose Fluid Total Protein Vancomycin Trough Crossmatch 12/21/21 12/21/21 12/21/21 05:38 11:29 16:16 WBC RBC Hgb Hct MCV MCH MCHC RDW Plt Count Seg Neuts % (Manual) Lymphocytes % (Manual) Seg Neutrophils # Man Lymphocytes # (Manual) Monocytes # (Manual) PT INR D-Dimer ABG pH ABG pO2 ABG HCO3 ABG O2 Saturation ABG Base Excess ABG Hemoglobin Oxyhemoglobin Sodium Potassium Chloride Carbon Dioxide BUN Creatinine Glucose POC Glucose 127 H 121 H 113 H Lactic Acid Calcium Phosphorus Magnesium AST ALT Alkaline Phosphatase Lactate Dehydrogenase Troponin T C-Reactive Protein NT-Pro-B Natriuret Pep Total Protein Albumin LDL Cholesterol Direct Vitamin B12 Urine WBC (Auto) Fluid Glucose Fluid Total Protein Vancomycin Trough Crossmatch 12/22/21 12/22/21 12/23/21 04:58 04:58 06:40 WBC 11.5 H RBC 3.43 L Hgb 9.8 L Hct 28.7 L MCV MCH MCHC RDW 18.5 H 17.9 H Plt Count Seg Neuts % (Manual) Lymphocytes % (Manual) Seg Neutrophils # Man Lymphocytes # (Manual) Monocytes # (Manual) PT INR D-Dimer ABG pH ABG pO2 ABG HCO3 ABG O2 Saturation ABG Base Excess ABG Hemoglobin Oxyhemoglobin Sodium 130 L Potassium Chloride 97.8 L Carbon Dioxide BUN 31 H Creatinine 0.5 L Glucose 122 H POC Glucose Lactic Acid Calcium 7.9 L Phosphorus Magnesium AST ALT Alkaline Phosphatase Lactate Dehydrogenase Troponin T C-Reactive Protein NT-Pro-B Natriuret Pep Total Protein Albumin LDL Cholesterol Direct Vitamin B12 Urine WBC (Auto) Fluid Glucose Fluid Total Protein Vancomycin Trough Crossmatch 12/23/21 12/23/21 12/24/21 06:40 23:25 04:24 WBC 11.7 H RBC Hgb 9.8 L Hct MCV MCH 26 L MCHC RDW 18.1 H Plt Count Seg Neuts % (Manual) Lymphocytes % (Manual) Seg Neutrophils # Man Lymphocytes # (Manual) Monocytes # (Manual) PT INR D-Dimer ABG pH ABG pO2 ABG HCO3 ABG O2 Saturation ABG Base Excess ABG Hemoglobin Oxyhemoglobin Sodium 136 L Potassium Chloride Carbon Dioxide BUN 27 H Creatinine 0.4 L Glucose 107 H POC Glucose 110 H Lactic Acid Calcium 8.1 L Phosphorus Magnesium AST ALT Alkaline Phosphatase Lactate Dehydrogenase Troponin T C-Reactive Protein NT-Pro-B Natriuret Pep Total Protein Albumin LDL Cholesterol Direct Vitamin B12 Urine WBC (Auto) Fluid Glucose Fluid Total Protein Vancomycin Trough Crossmatch 12/24/21 12/24/21 12/24/21 04:24 11:08 15:45 WBC RBC Hgb Hct MCV MCH MCHC RDW Plt Count Seg Neuts % (Manual) Lymphocytes % (Manual) Seg Neutrophils # Man Lymphocytes # (Manual) Monocytes # (Manual) PT INR D-Dimer ABG pH ABG pO2 ABG HCO3 ABG O2 Saturation ABG Base Excess ABG Hemoglobin Oxyhemoglobin Sodium 132 L Potassium Chloride Carbon Dioxide BUN 27 H Creatinine 0.3 L Glucose 108 H POC Glucose 116 H 107 H Lactic Acid Calcium Phosphorus Magnesium AST ALT Alkaline Phosphatase Lactate Dehydrogenase Troponin T C-Reactive Protein NT-Pro-B Natriuret Pep Total Protein Albumin LDL Cholesterol Direct Vitamin B12 Urine WBC (Auto) Fluid Glucose Fluid Total Protein Vancomycin Trough Crossmatch 12/24/21 12/25/21 12/25/21 23:43 05:29 11:48 WBC RBC Hgb Hct MCV MCH MCHC RDW Plt Count Seg Neuts % (Manual) Lymphocytes % (Manual) Seg Neutrophils # Man Lymphocytes # (Manual) Monocytes # (Manual) PT INR D-Dimer ABG pH ABG pO2 ABG HCO3 ABG O2 Saturation ABG Base Excess ABG Hemoglobin Oxyhemoglobin Sodium Potassium Chloride Carbon Dioxide BUN Creatinine Glucose POC Glucose 123 H 107 H 119 H Lactic Acid Calcium Phosphorus Magnesium AST ALT Alkaline Phosphatase Lactate Dehydrogenase Troponin T C-Reactive Protein NT-Pro-B Natriuret Pep Total Protein Albumin LDL Cholesterol Direct Vitamin B12 Urine WBC (Auto) Fluid Glucose Fluid Total Protein Vancomycin Trough Crossmatch 12/26/21 12/26/21 12/26/21 00:06 05:56 07:51 WBC 11.4 H RBC 3.40 L Hgb 9.3 L Hct 28.3 L MCV MCH 27 L MCHC RDW 18.2 H Plt Count Seg Neuts % (Manual) Lymphocytes % (Manual) Seg Neutrophils # Man Lymphocytes # (Manual) Monocytes # (Manual) PT INR D-Dimer ABG pH ABG pO2 ABG HCO3 ABG O2 Saturation ABG Base Excess ABG Hemoglobin Oxyhemoglobin Sodium Potassium Chloride Carbon Dioxide BUN Creatinine Glucose POC Glucose 133 H 107 H Lactic Acid Calcium Phosphorus Magnesium AST ALT Alkaline Phosphatase Lactate Dehydrogenase Troponin T C-Reactive Protein NT-Pro-B Natriuret Pep Total Protein Albumin LDL Cholesterol Direct Vitamin B12 Urine WBC (Auto) Fluid Glucose Fluid Total Protein Vancomycin Trough Crossmatch 12/26/21 12/26/21 12/26/21 07:51 11:43 17:06 WBC RBC Hgb Hct MCV MCH MCHC RDW Plt Count Seg Neuts % (Manual) Lymphocytes % (Manual) Seg Neutrophils # Man Lymphocytes # (Manual) Monocytes # (Manual) PT INR D-Dimer ABG pH ABG pO2 ABG HCO3 ABG O2 Saturation ABG Base Excess ABG Hemoglobin Oxyhemoglobin Sodium 136 L Potassium Chloride Carbon Dioxide BUN 25 H Creatinine 0.3 L Glucose 131 H POC Glucose 119 H 128 H Lactic Acid Calcium Phosphorus Magnesium AST ALT Alkaline Phosphatase Lactate Dehydrogenase Troponin T C-Reactive Protein NT-Pro-B Natriuret Pep Total Protein Albumin LDL Cholesterol Direct Vitamin B12 Urine WBC (Auto) Fluid Glucose Fluid Total Protein Vancomycin Trough Crossmatch 12/28/21 12/28/21 12/29/21 09:05 09:05 04:40 WBC RBC 3.19 L Hgb 8.9 L Hct 26.4 L MCV MCH 27 L MCHC RDW 18.4 H 17.9 H Plt Count Seg Neuts % (Manual) Lymphocytes % (Manual) Seg Neutrophils # Man Lymphocytes # (Manual) Monocytes # (Manual) PT INR D-Dimer ABG pH ABG pO2 ABG HCO3 ABG O2 Saturation ABG Base Excess ABG Hemoglobin Oxyhemoglobin Sodium 135 L Potassium Chloride 97.8 L Carbon Dioxide BUN 18 H Creatinine 0.3 L Glucose POC Glucose Lactic Acid Calcium Phosphorus Magnesium AST ALT Alkaline Phosphatase Lactate Dehydrogenase Troponin T C-Reactive Protein NT-Pro-B Natriuret Pep Total Protein Albumin LDL Cholesterol Direct Vitamin B12 Urine WBC (Auto) Fluid Glucose Fluid Total Protein Vancomycin Trough Crossmatch 12/29/21 12/29/21 12/30/21 04:40 12:47 04:05 WBC RBC 3.29 L Hgb 8.7 L Hct 27.6 L MCV MCH 27 L MCHC RDW 17.6 H Plt Count Seg Neuts % (Manual) Lymphocytes % (Manual) Seg Neutrophils # Man Lymphocytes # (Manual) Monocytes # (Manual) PT INR D-Dimer ABG pH ABG pO2 ABG HCO3 ABG O2 Saturation ABG Base Excess ABG Hemoglobin Oxyhemoglobin Sodium 136 L Potassium Chloride Carbon Dioxide BUN Creatinine 0.3 L Glucose POC Glucose 67 L Lactic Acid Calcium 8.3 L Phosphorus Magnesium AST ALT Alkaline Phosphatase Lactate Dehydrogenase Troponin T C-Reactive Protein NT-Pro-B Natriuret Pep Total Protein Albumin LDL Cholesterol Direct Vitamin B12 Urine WBC (Auto) Fluid Glucose Fluid Total Protein Vancomycin Trough Crossmatch 12/30/21 12/31/21 12/31/21 04:05 00:07 04:00 WBC RBC 3.05 L Hgb 8.5 L Hct 25.5 L MCV MCH MCHC RDW 18.2 H Plt Count Seg Neuts % (Manual) Lymphocytes % (Manual) Seg Neutrophils # Man Lymphocytes # (Manual) Monocytes # (Manual) PT INR D-Dimer ABG pH ABG pO2 ABG HCO3 ABG O2 Saturation ABG Base Excess ABG Hemoglobin Oxyhemoglobin Sodium 136 L Potassium 3.5 L Chloride Carbon Dioxide BUN Creatinine 0.4 L Glucose POC Glucose 139 H Lactic Acid Calcium Phosphorus Magnesium 1.50 L AST ALT Alkaline Phosphatase Lactate Dehydrogenase Troponin T C-Reactive Protein NT-Pro-B Natriuret Pep Total Protein Albumin LDL Cholesterol Direct Vitamin B12 Urine WBC (Auto) Fluid Glucose Fluid Total Protein Vancomycin Trough Crossmatch 12/31/21 12/31/21 12/31/21 04:00 04:52 11:23 WBC RBC Hgb Hct MCV MCH MCHC RDW Plt Count Seg Neuts % (Manual) Lymphocytes % (Manual) Seg Neutrophils # Man Lymphocytes # (Manual) Monocytes # (Manual) PT INR D-Dimer ABG pH ABG pO2 ABG HCO3 ABG O2 Saturation ABG Base Excess ABG Hemoglobin Oxyhemoglobin Sodium Potassium Chloride Carbon Dioxide BUN 19 H Creatinine 0.4 L Glucose 116 H POC Glucose 121 H 116 H Lactic Acid Calcium Phosphorus Magnesium AST ALT Alkaline Phosphatase Lactate Dehydrogenase Troponin T C-Reactive Protein NT-Pro-B Natriuret Pep Total Protein Albumin LDL Cholesterol Direct Vitamin B12 Urine WBC (Auto) Fluid Glucose Fluid Total Protein Vancomycin Trough Crossmatch 12/31/21 01/01/22 01/01/22 17:42 04:31 04:31 WBC RBC 2.83 L Hgb 7.7 L Hct 23.2 L MCV MCH 27 L MCHC RDW 18.3 H Plt Count Seg Neuts % (Manual) Lymphocytes % (Manual) Seg Neutrophils # Man Lymphocytes # (Manual) Monocytes # (Manual) PT INR D-Dimer ABG pH ABG pO2 ABG HCO3 ABG O2 Saturation ABG Base Excess ABG Hemoglobin Oxyhemoglobin Sodium 135 L Potassium Chloride 97.7 L Carbon Dioxide BUN 21 H Creatinine 0.5 L Glucose 127 H POC Glucose 107 H Lactic Acid Calcium 8.0 L Phosphorus Magnesium AST ALT Alkaline Phosphatase Lactate Dehydrogenase Troponin T C-Reactive Protein NT-Pro-B Natriuret Pep Total Protein Albumin LDL Cholesterol Direct Vitamin B12 Urine WBC (Auto) Fluid Glucose Fluid Total Protein Vancomycin Trough Crossmatch 01/01/22 01/01/22 01/01/22 05:24 11:25 18:11 WBC RBC Hgb Hct MCV MCH MCHC RDW Plt Count Seg Neuts % (Manual) Lymphocytes % (Manual) Seg Neutrophils # Man Lymphocytes # (Manual) Monocytes # (Manual) PT INR D-Dimer ABG pH ABG pO2 ABG HCO3 ABG O2 Saturation ABG Base Excess ABG Hemoglobin Oxyhemoglobin Sodium Potassium Chloride Carbon Dioxide BUN Creatinine Glucose POC Glucose 124 H 140 H 144 H Lactic Acid Calcium Phosphorus Magnesium AST ALT Alkaline Phosphatase Lactate Dehydrogenase Troponin T C-Reactive Protein NT-Pro-B Natriuret Pep Total Protein Albumin LDL Cholesterol Direct Vitamin B12 Urine WBC (Auto) Fluid Glucose Fluid Total Protein Vancomycin Trough Crossmatch 01/01/22 01/02/22 01/02/22 23:26 04:01 04:01 WBC RBC 2.57 L Hgb 7.1 L Hct 21.5 L MCV MCH MCHC RDW 18.1 H Plt Count Seg Neuts % (Manual) Lymphocytes % (Manual) Seg Neutrophils # Man Lymphocytes # (Manual) Monocytes # (Manual) PT INR D-Dimer ABG pH ABG pO2 ABG HCO3 ABG O2 Saturation ABG Base Excess ABG Hemoglobin Oxyhemoglobin Sodium 131 L Potassium 3.5 L Chloride 94.8 L Carbon Dioxide BUN 27 H Creatinine Glucose 121 H POC Glucose 121 H Lactic Acid Calcium Phosphorus Magnesium AST ALT Alkaline Phosphatase Lactate Dehydrogenase Troponin T C-Reactive Protein NT-Pro-B Natriuret Pep Total Protein Albumin LDL Cholesterol Direct Vitamin B12 Urine WBC (Auto) Fluid Glucose Fluid Total Protein Vancomycin Trough Crossmatch 01/02/22 01/02/22 01/02/22 05:30 11:10 16:08 WBC RBC Hgb Hct MCV MCH MCHC RDW Plt Count Seg Neuts % (Manual) Lymphocytes % (Manual) Seg Neutrophils # Man Lymphocytes # (Manual) Monocytes # (Manual) PT INR D-Dimer ABG pH ABG pO2 ABG HCO3 ABG O2 Saturation ABG Base Excess ABG Hemoglobin Oxyhemoglobin Sodium Potassium Chloride Carbon Dioxide BUN Creatinine Glucose POC Glucose 124 H 117 H 130 H Lactic Acid Calcium Phosphorus Magnesium AST ALT Alkaline Phosphatase Lactate Dehydrogenase Troponin T C-Reactive Protein NT-Pro-B Natriuret Pep Total Protein Albumin LDL Cholesterol Direct Vitamin B12 Urine WBC (Auto) Fluid Glucose Fluid Total Protein Vancomycin Trough Crossmatch 01/02/22 01/02/22 01/03/22 17:30 23:26 04:53 WBC RBC 2.82 L Hgb 7.7 L Hct 23.4 L MCV MCH 27 L MCHC RDW 18.0 H Plt Count Seg Neuts % (Manual) Lymphocytes % (Manual) Seg Neutrophils # Man Lymphocytes # (Manual) Monocytes # (Manual) PT INR D-Dimer ABG pH ABG pO2 ABG HCO3 ABG O2 Saturation ABG Base Excess ABG Hemoglobin Oxyhemoglobin Sodium Potassium Chloride Carbon Dioxide BUN Creatinine Glucose POC Glucose 114 H Lactic Acid Calcium Phosphorus Magnesium AST ALT Alkaline Phosphatase Lactate Dehydrogenase Troponin T C-Reactive Protein NT-Pro-B Natriuret Pep Total Protein Albumin LDL Cholesterol Direct Vitamin B12 Urine WBC (Auto) Fluid Glucose Fluid Total Protein Vancomycin Trough 22.8 H Crossmatch 01/03/22 01/03/22 01/03/22 04:53 06:23 17:35 WBC RBC Hgb Hct MCV MCH MCHC RDW Plt Count Seg Neuts % (Manual) Lymphocytes % (Manual) Seg Neutrophils # Man Lymphocytes # (Manual) Monocytes # (Manual) PT INR D-Dimer ABG pH ABG pO2 ABG HCO3 ABG O2 Saturation ABG Base Excess ABG Hemoglobin Oxyhemoglobin Sodium 133 L Potassium Chloride 96.2 L Carbon Dioxide BUN 30 H Creatinine Glucose 107 H POC Glucose 122 H 107 H Lactic Acid Calcium Phosphorus Magnesium AST ALT Alkaline Phosphatase Lactate Dehydrogenase Troponin T C-Reactive Protein NT-Pro-B Natriuret Pep Total Protein Albumin LDL Cholesterol Direct Vitamin B12 Urine WBC (Auto) Fluid Glucose Fluid Total Protein Vancomycin Trough Crossmatch 01/04/22 01/04/22 01/04/22 04:00 12:32 16:45 WBC RBC Hgb Hct MCV MCH MCHC RDW Plt Count Seg Neuts % (Manual) Lymphocytes % (Manual) Seg Neutrophils # Man Lymphocytes # (Manual) Monocytes # (Manual) PT INR D-Dimer ABG pH ABG pO2 ABG HCO3 ABG O2 Saturation ABG Base Excess ABG Hemoglobin Oxyhemoglobin Sodium 132 L Potassium Chloride 92.8 L Carbon Dioxide BUN 30 H Creatinine Glucose 115 H POC Glucose 111 H 111 H Lactic Acid Calcium Phosphorus Magnesium 1.60 L AST ALT Alkaline Phosphatase Lactate Dehydrogenase Troponin T C-Reactive Protein NT-Pro-B Natriuret Pep Total Protein Albumin LDL Cholesterol Direct Vitamin B12 Urine WBC (Auto) Fluid Glucose Fluid Total Protein Vancomycin Trough Crossmatch 01/05/22 01/05/22 01/05/22 04:30 04:30 17:04 WBC RBC 3.11 L Hgb 8.4 L Hct 25.5 L MCV MCH 27 L MCHC RDW 17.6 H Plt Count Seg Neuts % (Manual) Lymphocytes % (Manual) Seg Neutrophils # Man Lymphocytes # (Manual) Monocytes # (Manual) PT INR D-Dimer ABG pH ABG pO2 ABG HCO3 ABG O2 Saturation ABG Base Excess ABG Hemoglobin Oxyhemoglobin Sodium 135 L Potassium Chloride 93.6 L Carbon Dioxide BUN 29 H Creatinine Glucose POC Glucose 67 L Lactic Acid Calcium Phosphorus Magnesium AST ALT Alkaline Phosphatase Lactate Dehydrogenase Troponin T C-Reactive Protein NT-Pro-B Natriuret Pep Total Protein Albumin LDL Cholesterol Direct Vitamin B12 Urine WBC (Auto) Fluid Glucose Fluid Total Protein Vancomycin Trough Crossmatch 01/05/22 01/06/22 01/06/22 23:27 04:06 04:06 WBC RBC 2.89 L Hgb 7.7 L Hct 23.8 L MCV MCH 27 L MCHC RDW 18.0 H Plt Count Seg Neuts % (Manual) Lymphocytes % (Manual) Seg Neutrophils # Man Lymphocytes # (Manual) Monocytes # (Manual) PT 16.9 H INR 1.23 H D-Dimer ABG pH ABG pO2 ABG HCO3 ABG O2 Saturation ABG Base Excess ABG Hemoglobin Oxyhemoglobin Sodium Potassium Chloride Carbon Dioxide BUN Creatinine Glucose POC Glucose 110 H Lactic Acid Calcium Phosphorus Magnesium AST ALT Alkaline Phosphatase Lactate Dehydrogenase Troponin T C-Reactive Protein NT-Pro-B Natriuret Pep Total Protein Albumin LDL Cholesterol Direct Vitamin B12 Urine WBC (Auto) Fluid Glucose Fluid Total Protein Vancomycin Trough Crossmatch 01/06/22 01/06/22 01/06/22 04:06 13:40 23:41 WBC RBC Hgb Hct MCV MCH MCHC RDW Plt Count Seg Neuts % (Manual) Lymphocytes % (Manual) Seg Neutrophils # Man Lymphocytes # (Manual) Monocytes # (Manual) PT INR D-Dimer ABG pH ABG pO2 ABG HCO3 ABG O2 Saturation ABG Base Excess ABG Hemoglobin Oxyhemoglobin Sodium 132 L Potassium Chloride 92.3 L Carbon Dioxide BUN 26 H Creatinine Glucose 111 H POC Glucose 120 H Lactic Acid Calcium Phosphorus Magnesium AST ALT Alkaline Phosphatase Lactate Dehydrogenase Troponin T C-Reactive Protein NT-Pro-B Natriuret Pep Total Protein Albumin LDL Cholesterol Direct Vitamin B12 Urine WBC (Auto) Fluid Glucose 96 H Fluid Total Protein < 3.0 L Vancomycin Trough Crossmatch 01/07/22 01/07/22 01/07/22 05:20 11:30 17:00 WBC RBC Hgb Hct MCV MCH MCHC RDW Plt Count Seg Neuts % (Manual) Lymphocytes % (Manual) Seg Neutrophils # Man Lymphocytes # (Manual) Monocytes # (Manual) PT INR D-Dimer ABG pH ABG pO2 ABG HCO3 ABG O2 Saturation ABG Base Excess ABG Hemoglobin Oxyhemoglobin Sodium Potassium Chloride Carbon Dioxide BUN Creatinine Glucose POC Glucose 111 H 113 H 121 H Lactic Acid Calcium Phosphorus Magnesium AST ALT Alkaline Phosphatase Lactate Dehydrogenase Troponin T C-Reactive Protein NT-Pro-B Natriuret Pep Total Protein Albumin LDL Cholesterol Direct Vitamin B12 Urine WBC (Auto) Fluid Glucose Fluid Total Protein Vancomycin Trough Crossmatch 01/07/22 01/08/22 01/08/22 23:41 11:26 16:23 WBC RBC Hgb Hct MCV MCH MCHC RDW Plt Count Seg Neuts % (Manual) Lymphocytes % (Manual) Seg Neutrophils # Man Lymphocytes # (Manual) Monocytes # (Manual) PT INR D-Dimer ABG pH ABG pO2 ABG HCO3 ABG O2 Saturation ABG Base Excess ABG Hemoglobin Oxyhemoglobin Sodium Potassium Chloride Carbon Dioxide BUN Creatinine Glucose POC Glucose 110 H 129 H 118 H Lactic Acid Calcium Phosphorus Magnesium AST ALT Alkaline Phosphatase Lactate Dehydrogenase Troponin T C-Reactive Protein NT-Pro-B Natriuret Pep Total Protein Albumin LDL Cholesterol Direct Vitamin B12 Urine WBC (Auto) Fluid Glucose Fluid Total Protein Vancomycin Trough Crossmatch 01/09/22 01/10/22 01/10/22 18:13 00:27 04:00 WBC RBC Hgb Hct MCV MCH MCHC RDW Plt Count Seg Neuts % (Manual) Lymphocytes % (Manual) Seg Neutrophils # Man Lymphocytes # (Manual) Monocytes # (Manual) PT INR D-Dimer ABG pH ABG pO2 ABG HCO3 ABG O2 Saturation ABG Base Excess ABG Hemoglobin Oxyhemoglobin Sodium 133 L Potassium Chloride 92.6 L Carbon Dioxide 31 H BUN 29 H Creatinine 0.5 L Glucose 115 H POC Glucose 118 H 111 H Lactic Acid Calcium Phosphorus Magnesium AST ALT Alkaline Phosphatase Lactate Dehydrogenase Troponin T C-Reactive Protein NT-Pro-B Natriuret Pep Total Protein Albumin LDL Cholesterol Direct Vitamin B12 Urine WBC (Auto) Fluid Glucose Fluid Total Protein Vancomycin Trough Crossmatch 01/10/22 01/11/22 01/11/22 05:47 05:10 11:14 WBC RBC Hgb Hct MCV MCH MCHC RDW Plt Count Seg Neuts % (Manual) Lymphocytes % (Manual) Seg Neutrophils # Man Lymphocytes # (Manual) Monocytes # (Manual) PT INR D-Dimer ABG pH ABG pO2 ABG HCO3 ABG O2 Saturation ABG Base Excess ABG Hemoglobin Oxyhemoglobin Sodium Potassium Chloride Carbon Dioxide BUN Creatinine Glucose POC Glucose 106 H 118 H 136 H Lactic Acid Calcium Phosphorus Magnesium AST ALT Alkaline Phosphatase Lactate Dehydrogenase Troponin T C-Reactive Protein NT-Pro-B Natriuret Pep Total Protein Albumin LDL Cholesterol Direct Vitamin B12 Urine WBC (Auto) Fluid Glucose Fluid Total Protein Vancomycin Trough Crossmatch 01/11/22 01/11/22 01/12/22 17:14 23:52 05:39 WBC RBC Hgb Hct MCV MCH MCHC RDW Plt Count Seg Neuts % (Manual) Lymphocytes % (Manual) Seg Neutrophils # Man Lymphocytes # (Manual) Monocytes # (Manual) PT INR D-Dimer ABG pH ABG pO2 ABG HCO3 ABG O2 Saturation ABG Base Excess ABG Hemoglobin Oxyhemoglobin Sodium Potassium Chloride Carbon Dioxide BUN Creatinine Glucose POC Glucose 117 H 110 H 110 H Lactic Acid Calcium Phosphorus Magnesium AST ALT Alkaline Phosphatase Lactate Dehydrogenase Troponin T C-Reactive Protein NT-Pro-B Natriuret Pep Total Protein Albumin LDL Cholesterol Direct Vitamin B12 Urine WBC (Auto) Fluid Glucose Fluid Total Protein Vancomycin Trough Crossmatch 01/13/22 01/13/22 01/14/22 11:15 17:21 05:33 WBC RBC Hgb Hct MCV MCH MCHC RDW Plt Count Seg Neuts % (Manual) Lymphocytes % (Manual) Seg Neutrophils # Man Lymphocytes # (Manual) Monocytes # (Manual) PT INR D-Dimer ABG pH ABG pO2 ABG HCO3 ABG O2 Saturation ABG Base Excess ABG Hemoglobin Oxyhemoglobin Sodium Potassium Chloride Carbon Dioxide BUN Creatinine Glucose POC Glucose 113 H 121 H 136 H Lactic Acid Calcium Phosphorus Magnesium AST ALT Alkaline Phosphatase Lactate Dehydrogenase Troponin T C-Reactive Protein NT-Pro-B Natriuret Pep Total Protein Albumin LDL Cholesterol Direct Vitamin B12 Urine WBC (Auto) Fluid Glucose Fluid Total Protein Vancomycin Trough Crossmatch 01/14/22 01/15/22 01/15/22 11:28 00:13 05:24 WBC RBC Hgb Hct MCV MCH MCHC RDW Plt Count Seg Neuts % (Manual) Lymphocytes % (Manual) Seg Neutrophils # Man Lymphocytes # (Manual) Monocytes # (Manual) PT INR D-Dimer ABG pH ABG pO2 ABG HCO3 ABG O2 Saturation ABG Base Excess ABG Hemoglobin Oxyhemoglobin Sodium Potassium Chloride Carbon Dioxide BUN Creatinine Glucose POC Glucose 117 H 109 H 117 H Lactic Acid Calcium Phosphorus Magnesium AST ALT Alkaline Phosphatase Lactate Dehydrogenase Troponin T C-Reactive Protein NT-Pro-B Natriuret Pep Total Protein Albumin LDL Cholesterol Direct Vitamin B12 Urine WBC (Auto) Fluid Glucose Fluid Total Protein Vancomycin Trough Crossmatch 01/15/22 01/15/22 01/15/22 11:38 14:36 17:05 WBC RBC 3.11 L Hgb 8.4 L Hct 25.7 L MCV MCH 27 L MCHC RDW 17.2 H Plt Count Seg Neuts % (Manual) 82.0 H Lymphocytes % (Manual) 11.0 L Seg Neutrophils # Man 8.8 H Lymphocytes # (Manual) Monocytes # (Manual) PT INR D-Dimer ABG pH ABG pO2 ABG HCO3 ABG O2 Saturation ABG Base Excess ABG Hemoglobin Oxyhemoglobin Sodium Potassium Chloride Carbon Dioxide BUN Creatinine Glucose POC Glucose 107 H 108 H Lactic Acid Calcium Phosphorus Magnesium AST ALT Alkaline Phosphatase Lactate Dehydrogenase Troponin T C-Reactive Protein NT-Pro-B Natriuret Pep Total Protein Albumin LDL Cholesterol Direct Vitamin B12 Urine WBC (Auto) Fluid Glucose Fluid Total Protein Vancomycin Trough Crossmatch 01/15/22 01/15/22 01/15/22 21:07 Unknown Unknown WBC RBC 2.97 L Hgb 8.0 L Hct 24.3 L MCV MCH 27 L MCHC RDW 17.2 H Plt Count Seg Neuts % (Manual) Lymphocytes % (Manual) Seg Neutrophils # Man Lymphocytes # (Manual) Monocytes # (Manual) PT INR D-Dimer ABG pH ABG pO2 ABG HCO3 ABG O2 Saturation ABG Base Excess ABG Hemoglobin Oxyhemoglobin Sodium 131 L Potassium Chloride 93.1 L Carbon Dioxide BUN 27 H Creatinine Glucose 110 H POC Glucose Lactic Acid Calcium 8.3 L Phosphorus Magnesium AST ALT Alkaline Phosphatase Lactate Dehydrogenase Troponin T 0.088 H C-Reactive Protein NT-Pro-B Natriuret Pep Total Protein Albumin LDL Cholesterol Direct 44 L Vitamin B12 Urine WBC (Auto) Fluid Glucose Fluid Total Protein Vancomycin Trough Crossmatch 01/15/22 01/16/22 01/16/22 Unknown 05:21 12:59 WBC RBC Hgb Hct MCV MCH MCHC RDW Plt Count Seg Neuts % (Manual) Lymphocytes % (Manual) Seg Neutrophils # Man Lymphocytes # (Manual) Monocytes # (Manual) PT INR D-Dimer ABG pH ABG pO2 ABG HCO3 ABG O2 Saturation ABG Base Excess ABG Hemoglobin Oxyhemoglobin Sodium 134 L 134 L Potassium 3.4 L Chloride 93.9 L 95.4 L Carbon Dioxide BUN 26 H 24 H Creatinine Glucose 168 H POC Glucose 159 H Lactic Acid Calcium 8.1 L Phosphorus Magnesium AST ALT Alkaline Phosphatase Lactate Dehydrogenase Troponin T 0.078 H C-Reactive Protein NT-Pro-B Natriuret Pep Total Protein Albumin LDL Cholesterol Direct Vitamin B12 Urine WBC (Auto) Fluid Glucose Fluid Total Protein Vancomycin Trough Crossmatch 01/16/22 01/17/22 01/17/22 23:22 05:20 14:24 WBC RBC Hgb Hct MCV MCH MCHC RDW Plt Count Seg Neuts % (Manual) Lymphocytes % (Manual) Seg Neutrophils # Man Lymphocytes # (Manual) Monocytes # (Manual) PT INR D-Dimer ABG pH ABG pO2 55.0 L ABG HCO3 29.5 H ABG O2 Saturation 87.8 L ABG Base Excess 4.5 H ABG Hemoglobin 9.3 L Oxyhemoglobin 86.1 L Sodium Potassium Chloride Carbon Dioxide BUN Creatinine Glucose POC Glucose 113 H 111 H Lactic Acid Calcium Phosphorus Magnesium AST ALT Alkaline Phosphatase Lactate Dehydrogenase Troponin T C-Reactive Protein NT-Pro-B Natriuret Pep Total Protein Albumin LDL Cholesterol Direct Vitamin B12 Urine WBC (Auto) Fluid Glucose Fluid Total Protein Vancomycin Trough Crossmatch 01/17/22 01/18/22 01/18/22 17:14 05:39 11:53 WBC RBC Hgb Hct MCV MCH MCHC RDW Plt Count Seg Neuts % (Manual) Lymphocytes % (Manual) Seg Neutrophils # Man Lymphocytes # (Manual) Monocytes # (Manual) PT INR D-Dimer ABG pH ABG pO2 ABG HCO3 ABG O2 Saturation ABG Base Excess ABG Hemoglobin Oxyhemoglobin Sodium Potassium Chloride Carbon Dioxide BUN Creatinine Glucose POC Glucose 126 H 108 H 113 H Lactic Acid Calcium Phosphorus Magnesium AST ALT Alkaline Phosphatase Lactate Dehydrogenase Troponin T C-Reactive Protein NT-Pro-B Natriuret Pep Total Protein Albumin LDL Cholesterol Direct Vitamin B12 Urine WBC (Auto) Fluid Glucose Fluid Total Protein Vancomycin Trough Crossmatch 01/18/22 01/19/22 01/19/22 12:50 00:04 04:50 WBC RBC 3.14 L Hgb 8.4 L Hct 26.0 L MCV MCH 27 L MCHC RDW 18.2 H Plt Count Seg Neuts % (Manual) Lymphocytes % (Manual) Seg Neutrophils # Man Lymphocytes # (Manual) Monocytes # (Manual) PT INR D-Dimer ABG pH ABG pO2 112.3 H ABG HCO3 30.9 H ABG O2 Saturation ABG Base Excess 5.8 H ABG Hemoglobin 8.8 L Oxyhemoglobin Sodium Potassium Chloride Carbon Dioxide BUN Creatinine Glucose POC Glucose 115 H Lactic Acid Calcium Phosphorus Magnesium AST ALT Alkaline Phosphatase Lactate Dehydrogenase Troponin T C-Reactive Protein NT-Pro-B Natriuret Pep Total Protein Albumin LDL Cholesterol Direct Vitamin B12 Urine WBC (Auto) Fluid Glucose Fluid Total Protein Vancomycin Trough Crossmatch 01/19/22 01/19/22 01/19/22 04:50 11:51 20:45 WBC RBC Hgb Hct MCV MCH MCHC RDW Plt Count Seg Neuts % (Manual) Lymphocytes % (Manual) Seg Neutrophils # Man Lymphocytes # (Manual) Monocytes # (Manual) PT INR D-Dimer ABG pH ABG pO2 95.2 H ABG HCO3 29.8 H ABG O2 Saturation ABG Base Excess 4.3 H ABG Hemoglobin 8.0 L Oxyhemoglobin Sodium 134 L Potassium Chloride 95.4 L Carbon Dioxide BUN 28 H Creatinine Glucose POC Glucose 111 H Lactic Acid Calcium Phosphorus Magnesium AST ALT Alkaline Phosphatase Lactate Dehydrogenase Troponin T C-Reactive Protein NT-Pro-B Natriuret Pep Total Protein Albumin LDL Cholesterol Direct Vitamin B12 Urine WBC (Auto) Fluid Glucose Fluid Total Protein Vancomycin Trough Crossmatch 01/20/22 01/21/22 01/22/22 11:43 23:32 11:12 WBC RBC Hgb Hct MCV MCH MCHC RDW Plt Count Seg Neuts % (Manual) Lymphocytes % (Manual) Seg Neutrophils # Man Lymphocytes # (Manual) Monocytes # (Manual) PT INR D-Dimer ABG pH ABG pO2 ABG HCO3 ABG O2 Saturation ABG Base Excess ABG Hemoglobin Oxyhemoglobin Sodium Potassium Chloride Carbon Dioxide BUN Creatinine Glucose POC Glucose 118 H 113 H 110 H Lactic Acid Calcium Phosphorus Magnesium AST ALT Alkaline Phosphatase Lactate Dehydrogenase Troponin T C-Reactive Protein NT-Pro-B Natriuret Pep Total Protein Albumin LDL Cholesterol Direct Vitamin B12 Urine WBC (Auto) Fluid Glucose Fluid Total Protein Vancomycin Trough Crossmatch 01/22/22 01/23/22 01/23/22 17:54 09:36 11:49 WBC RBC Hgb Hct MCV MCH MCHC RDW Plt Count Seg Neuts % (Manual) Lymphocytes % (Manual) Seg Neutrophils # Man Lymphocytes # (Manual) Monocytes # (Manual) PT INR D-Dimer ABG pH ABG pO2 ABG HCO3 ABG O2 Saturation ABG Base Excess ABG Hemoglobin Oxyhemoglobin Sodium Potassium Chloride Carbon Dioxide BUN Creatinine Glucose POC Glucose 115 H 194 H Lactic Acid Calcium Phosphorus Magnesium AST ALT Alkaline Phosphatase Lactate Dehydrogenase Troponin T C-Reactive Protein NT-Pro-B Natriuret Pep Total Protein Albumin LDL Cholesterol Direct Vitamin B12 Urine WBC (Auto) 16.0 H Fluid Glucose Fluid Total Protein Vancomycin Trough Crossmatch 01/23/22 01/24/22 01/24/22 11:50 05:37 11:56 WBC RBC Hgb Hct MCV MCH MCHC RDW Plt Count Seg Neuts % (Manual) Lymphocytes % (Manual) Seg Neutrophils # Man Lymphocytes # (Manual) Monocytes # (Manual) PT INR D-Dimer ABG pH 7.310 L ABG pO2 43.9 L ABG HCO3 28.0 H ABG O2 Saturation 70.8 L ABG Base Excess ABG Hemoglobin 9.3 L Oxyhemoglobin 69.2 L Sodium Potassium Chloride Carbon Dioxide BUN Creatinine Glucose POC Glucose 118 H 119 H Lactic Acid Calcium Phosphorus Magnesium AST ALT Alkaline Phosphatase Lactate Dehydrogenase Troponin T C-Reactive Protein NT-Pro-B Natriuret Pep Total Protein Albumin LDL Cholesterol Direct Vitamin B12 Urine WBC (Auto) Fluid Glucose Fluid Total Protein Vancomycin Trough Crossmatch Allied health notes reviewed: nursing
[2022-01-24] MEDS: MELATONIN 5 MG TAB PO SCH (21:55)
[2022-01-24] MEDS: traZODone 50 MG TAB PO SCH (21:55)
[2022-01-25] MEDS: SUCRALFATE 1 GM/10 ML ORAL LIQD FEEDTUBE SCH ×5 (00:29→23:23)
[2022-01-25] MEDS: LEVOTHYROXINE 125 MCG TAB FEEDTUBE SCH (06:22)
--- NOTE | 2022-01-25 08:16 | Progress Note ---
Assessment and Plan Assessment and plan: This is an 82-year-old female with DM, HTN , CHB s/p PPM, CAD s/p PCI and arthritis who presented to the emergency department on 11/04 for shortness of breath ongoing for the past 3 days, cough and according to family a fever of 102.2. Upon arrival of EMS patient was found to be tachypneic and hypoxic with SPO2 of 76% on room air which later improved to 88% on nonrebreather. Work-up in the emergency department included a CXR which showed bilateral interstitial pulmonary edema with bilateral pleural effusions and bibasilar opacities, leukocytosis and anemia with a hemoglobin of 6.1. Patient was admitted to the hospitalist service with acute anemia, acute hypoxic respiratory failure, bilateral pneumonia and COVID-19 PUI with consults to pulmonology, infectious disease and later cardiology. Patient was eventually intubated in the emergency department on 11/06. Hospital Course to date: 11/04/2021: Empiric therapy with iv levaquin/vancomycin. COVID PCR pending. Will consult ID. PCCM consulted, will follow recs. Hypotensive this AM, ordered bolus and fluids at 150 cc/hr. May require pressor support if bp does not improve. 11/05/2021: GBS on bcx +, currently on rocephin IV. Currently on bipap due to respiratory distress overnight. Worsening BL opacities on CXR. May be volume overload vs pneumonia. Unfortunately bp too low for lasix at this point. WIll continue levophed and bipap. Once able to tolerate, may do trial of albumin/lasix. Call attempt made to Niraj, no response. Will try again tomorrow to update. 11/06/2021: Decompensated overnight requiring intubation. CXR shows worsening interstitial infiltrates. Currenlty on dopamine, levophed, vasopressin. PICC line ordered. Advised RN to place gamble for I/O monitoring. Would benefit from diuresis but very volume overloaded. Prognosis guarded 11/08: Off sedation this am, remains unresponsive only grimace to pain. Hold all sedatives agents for now, patient is off pressors this am. Hypernatremia from today's lab- D5W X1bag, and low K repleted, repeat lab in the am. Severe constipation also noted from KUB, BR added. 11/09: Sudden SPO2 drop in the 60s this am. Patient was manually bagged and deep suctioned. Patient is currently stable on the vent, repeat CXR with no significant change. D/w CCM Mucomyst and brochodilator added. Patient mentation is unchanged, continue to hold off on sedative agents. Neurology consulted. 11/10: Acute DVT noted on bilateral lower extremity Doppler ultrasound therefore she was started on Lovenox treatment dose. Failed SBT. Hypernatremia and hyperchloremia noted, free water flush adjusted. 11/11: Patient noted to be febrile with increasing of the cytosis, UA/BC sent and CXR ordered. ID escalated antibiotics to cefepime. CXR demonstrated mucous plug, bedside bronchoscopy was performed and O ETT was changed over bougie from 6 cm to 7.5. Patient was noted to have a pneumothorax postprocedure and chest tube was placed. Family updated by [facility]. Free water flush increased and will add Jaswant supplementation. 11/12: Patient not noted to follow commands, hypernatremia worsen/persist, increasing free water flush, potassium and magnesium and phosphorus repleted. Hemoglobin noted to be 7./24.5 from 7.03/12 yesterday. We will continue to trend and monitor. Vent changes per [facility]. Repeat CXR showed no residual pneumothorax. Consider waterseal tomorrow. Given persistent leukocytosis antibiotics escalated to cefepime per ID. 11/13: Remains on cefepime and vancomycin, vent changes per [facility]. Anemia noted and given 1 unit PRBC. And beta-charleen held in setting of Levophed drip infusing. Remains on fentanyl drip. 11/14: Patient put on CPAP trial by [facility], will continue chest tube until after extubation. Will rest on assist control. CT brain was cancelled by cull grader and reordered. 11/15: Patient removed chest tube overnight. Will obtain cxr. remains on low dose levo. CTH completed with no acute findings. RT to place on CPAP. 11/16: Hypernatremia/hyperchloremia noted on the increase of day water flushes. Anemia noted and ordered PRBC. asked RT to place on cpap but not done yet 11/17: Patient remains on the vent, awake and following commands. H&H stable s/p 2units PRBCs. GI on consult, no intervention at this time. Will continue protonix gtt and serial H&H Q6hrs. Keep patient NPO for now, D5w added for hypernatremia and NPO status. Plan for IVC filter placement today by Vascular. 11/18: Patient is s/p IVC filter. H&H continue to trend down, hbg 6.1 this am, 1 unit of PRBCs ordered. Plan for possible EGD today by GI. Keep patient NPO, continue PPI drip and serial H&H Q6hrs. Electrolytes repleted, repeat lab in the am 11/19: S/p EGD- larger duodenal ulcer noted, see operative note. GI recommendations noted also noted. H&H stable this am. Keep patient on protonix gtt for now. Will keep patient NPO, continue IVF and serial H&H for now. Electrolytes repleted, repeat labs in the am 11/20: Very agitated and restless this am, fentanyl gtt resumed. Patient remains on protonix gtt, H&H remains stable. Will switch protonix gtt to IV BID, continue carafate and okay to resume meds at this time. Will F/u with GI to see if TF can be resumed. Gamble was reinserted overnight for retention. Electrolytes repleted, repeat in the am. Plan for possible PST today for possible extubation per CCM. 11/21: Patient is now on seroquel and patient's home buspar resumed. Patient more calm this morning, fentanyl gtt is off. H&H remains stable and patient is tolerating TF. Patient had a runs of Vtach/PVCs this am, BB added per Cardio. Continue daily PS and wean trial for possible extubation. 11/22: Back on fentanyl gtt overnight , RASS o to -1, following commands. Patient failed PST this am due to increased work of breathing and low SPO2, ABG pending. Patient is also with worsen pitting edema, lasix is still on hold. Will discuss with cardio and CCM to possibly resume lasix. 11/23: MARIA DEL CARMEN overnight. Patient failed PST again this am. Per CCM plan for possible trach and PEG, hold off on IV lasix for now. General surgery consulted and family is aware of possible Trach and PEG. 11/24: Trach/PEG pending this week, continue SBT/SAT as tolerated. No acute events reported overnight. 11/25: Patient was n.p.o. overnight and will remain n.p.o. tonight for trach/PEG tomorrow morning. She failed to support trial again. KUB obtained due to distended belly. 11/26: Patient scheduled for tracheostomy and PEG tube placement today, has been n.p.o. since midnight. No acute events reported overnight. [facility] ordered simethicone scheduled. 11/27: No acute events reported overnight, patient received trach/PEG yesterday. Has been on feedings since last night. Still awaiting LTAC placement. 11/28: Patient magnesium repleted, repeat a.m. labs, SBT 11/29: Patient complains of chest pain but ECG obtained which showed no acute findings, ordered troponin. Patient failed CPAP yesterday and was trialed again today. levophed was restarted but will aggressively wean 11/30: Patient failed SBT. Continue supportive care. Started gabapentin today 12/01: MARIA DEL CARMEN overnight. Continue daily PST. Case management to arrange possible placement 12/02: Report of dark stools overnight, patient is hemodynamically stable. H&H stable, patient is on PPI. Will continue to trend H&H. Continue daily PST as tolerated. Awaiting LTAC vs SNF placement. 12/03: Hypotensive overnight, requiring low dose pressors. S/p X3 days of gentle diurese. Will continue to monitor, wean off pressors as tolerated for MAP of 65. Patient Failed PST yesterday, case management to follow up with insurance for po ssible LTAC placement. Continue daily PST as tolerated. PT eval and treat ordered. 12/04: Increased agitation and anxiety overnight, remains on buspar and seroquel, trazadone added to promote rest. Patient is now working with PT, keep patient engage and awake during the day so she can rest at night. No BM for over 5 days, BR was adjusted. Patient did not tolerate PST again yesterday, continue daily PST as tolerated. Continue to titrate pressor for MAP above 65. Pending possible LTAC placement, case management to arrange. 12/05: Still not getting much rest overnight, will add melatonin for sleep. Continue to engage patient during the day and promote rest at night. TF was held due to concern for possible bleeding, H&H remains stable and stools normal this am. Resume TF and continue PPI and carafate. Remains on low dose levophed, titrate as tolerated. Continue daily PST. Possible LTAC placement, awaiting approval. 12/06: MARIA DEL CARMEN overnight. Patient rested overnight. Continue supportive measures. Daily PST as tolerated. Awaiting possible LTAC placement 12/07: MARIA DEL CARMEN overnight. Plan for Tpiece trial today. Continue current supportive measures. Possible LTAC placement 12/08: Patient placed on pressure support trial again today, started on Xanax, no acute events reported overnight. Awaiting insurance approval for LTAC. 12/09: Levophed discontinued, LTAC transfer denied, started on midodrine and Lasix, ultrasound chest pending, started on Xanax 0.[address] De León updated family at bedside today. Started on Dilaudid every 3 hours as needed. 12/10: Patient placed on CPAP trial this morning, no acute events reported overnight. Will order ultrasound-guided thoracentesis. 12/11: Patient had a thoracentesis today, will decrease Xanax dosage and continue midodrine and diuresing. Patient failed CPAP today. 12/12: Patient not tolerate CPAP trials today, no acute events reported overnight 12/13: No acute events overnight. continue PSV trials as tolerated. Daughter up dated at bedside 12/14: Patient noted to be anemic today, ordered gastric occult. Patient seems to be oversedated therefore Xanax changed to as needed and fentanyl patch discontinued. We will continue to monitor hyponatremia. 12/15: MARIA DEL CARMEN overnight. s/p 1unit of PRBCs, H&H stable this am, no signs of any active bleeding. Continue daily PST as tolerated. Awaiting placement. 12/16: Hypertensive this am, Midodrine decreased. Continue daily PST. MAIRA DEL CARMEN overnight 12/17: Patient Hgb dropped to 6 this am, no s/s of any active bleeding, VSS. Patient received 1unit of PRBC, will continue to trend H&H. Patient was pancultured and back on IV Abx due to persistent fevers yesterday. ID is also back on the case. Continue IV Abx per ID and f/u on cultures data for sensitivity. Patient also failed PST yesterday, continue daily PST as tolerated. Electrolytes repleted, repeat labs in the am. 12/18: Patient blood cultures is growing GPC 4 out 4 bottles. PICC line D/Rivas, patient is already on IV Abx-cefepine and Vanc and ID is following. Patient remains hemodynamically stable. Daily PST as tolerated adn PRN Benzo for anxiety. 12/19: MARIA DEL CARMEN overnight. Culture data noted, continue IV Abx per ID. Orders placed for repeat Bculture. Gamble D/C overnight, patient is voiding. Check bladder scan as needed for retention. Patient failed PST again today. Continue daily PST as tolerated. 12/20: Fevers improved, Cultures +MRSA, on Vanco per ID. Repeat 2D Echo to r/o endocarditis. Patient continue to fail PST, PEEP increased to 8 today. Continue pulmonary hygiene and vent wean per CCM. Sodium tab added for hyponatremia. 12/22: Patient on pressure support trial for approximately 4 hours today, midodrine dosage increased due to hypotension. Lasix discontinued. 12/23: Started on a.m. Seroquel dose, midodrine increased to 10 mg 3 times daily, 500 mL normal saline bolus. 12/24: Seroquel dose changed (25 every morning, 75 nightly). updated at bedside by Dr. De León. CPAP trials as tolerated. Continue vancomycin. Awaiting placement. 12/25: Continue CPAP as tolerated, added gasx for distention. Continue supportive care 12/26: Patient failed PSV this AM. no acute events overnight. 12/27: GI re-consulted due to abdominal distention. No acute events reported overnight. CPAP trials as tolerated. Dr. Mckenna will get a KUB to rule out possible obstruction. 12/28: KUB shows no acute process, CXR shows improvement. CPAP trials as tolerated. 12/29: CT Abd/pelvis noted with moderated bilateral pleural effusion, anasarca, and ascites. X1dose of IV lasix administered. D/w CCM and GI orders plan for thora and paracentesis by IR. Will also start patient on aldactone Qday. Patient is tolerating trickle feeds this am, continue TF and BR adjusted for constipation. Plan of care was discussed with patient and her at the bedside. Thorough discussion on patient's overall poor prognosis and that pat ient will most likely be vent dependent. Patient's voiced understanding of the info given. All questions and concerns were voiced at this time. 12/30: Patient did not tolerate thoracentesis in IR yesterday due to change in LOC and hypoxia. Plan for possible bedside thoracentesis and paracentesis today. Patient remains afebrile. Patient required termite control technician IV abx therapy [id number] left, orders placed for a PICC. Patient remains with sign. Piting edema and anasarca, X1 does of PO Zaroxolyn and 2m of IV lasix given. Electrolytes repleted, repeat lab in the am. 12/31: Tolerated Rt. thoracentesis at the bedside yesterday, 1.4L removed. Patient remains stable on the vent this am, tolerating CPAP today PS dropped to 14. Recent CXR noted, left pleural effusion improved. Patient tolerated gentle diurese yesterday, good urine output reported. D/w CCM hold off on Left thoracentesis today, continue PO Aldactone and additonal zaroxolyn and IV lasix again today. F/u CXR in the am. 01/01: This am CXR noted with worsening bilateral pleural effusion. Patient is stable and tolerating PST this am, however PS is back up to 20 this am. BP is soft this am will hold off on IV diuretic for today, continue PO Aldactone. D/w CCM continue gentle diurese as tolerated. Will reassess in the am. Continue support care. 01/02: MARIA DEL CARMEN overnight. VSS this am, tolerating PST. X1dose of 25% IV Albumin following with 20mg IV Lasix today. Continue daily gentle diurese if hemodynamics tolerate it. Continue to monitor and replace electrolytes as needed 01/03: Abdominal distention and vomiting overnight, 600cc of gastric residual removed, TF held. KUB with no acute abnormality. Reglan added X2days, resume TF, and continue BR. Patient is tolerating PST this am. Hemodynamics remains stable, will continue gentle IV diurese. close monitoring to renal function and electrolytes. 01/04: Tolerating TF, nausea/vomiting resolved, last BM on 01/03. Continue Reglan X1 more day. Patient continue to tolerate PST. D/W CCM continue gentle diurese. F/U CXR in the am. Possible US thoracentesis tomorrow. 01/05: no acute events overnight. scheduled for thoracentesis today but procedure pushed to tomorrow. TF restarted and will be NPO post MN. 01/06: planned thoracentesis today. Working with CM for ltac/snf approval. 01/07: s/p thoracentesis 120 cc appears to have been removed. Pulm recommendations noted, agree with continued diuresis and weaning. Continued planning with CM for ltac/snf placement. 01/08: No new issues. Continue vent weaning per pulmonary. Continuing to work with CM for placement. 01/09: No new issues. Continue vent weaning per pulmonary. Continuing to work with CM for placement. Ordered BMP for tomorrow to check kidney function as patient is currently being diuresed. 01/10: No new issues. Continue vent weaning/diuresis as directed by pulmonary medicine.BMP demonstrates normal renal function and potassium. Sodium and Chloride consistent with prior labs. Will recheck BMP in 2 days. Placement continues to be an issue as patient has been denied at all facilities. Will reasses with CM on wednesday. 01/11: Emesis overnight. Do not suspect that she is obstructed as she had 2 BM reported. Will order Reglan prn, drop TF rate to goal of 30 cc/hr. Will continue to work on placement. 01/12: Per RN patient had reported that she was tired and did not want to persist in her current state of health. D/w patient Niraj at patient bedside and stated that I recommended the patient/family at least talk with hospice to get a better understanding of their care. He was agreeable. I spoke with Ms. Busby who will help set up referral for hospice service so that family can be educated and, if the patient chooses, can pursue this option. 01/13: Continue supportive care. Family discussing about hospice. Continue reinforcement and continue weaning as tolerated. Prognosis is guarded and poor. Patient is clinically stable to transfer to the next level of care has not required any escalation in management. Has been stable on the vent awake alert following commands. 01/14: [id number]. Considering abdominal distention tube feedings hold along with the fact that the patient vomited yesterday. Will obtain a CT abdomen and pelvis to further evaluate placement. Discussed with nursing staff. Awaiting to have a family conversation with the for goals of care discussion again. 01/15: Continue supportive care, tube feed was restarted yesterday and tolerated, will start on simethicone for gas control and management. Patient is clinically stable for all lower level of care and continued weaning from the ventilator to appropriate facility. Family still undecided about goals of care. We will also check labs intermittently. 01/16: Patient today went for Chest tube placement on the right side for recurrent pleural effusion, with the goal of evaluating to see if we can wean off the vent. She has remained on the vent and with some persistent anxiety. she continues to tolerate tube feed. Again poor prognosis discussed with family. 01/17: Status post chest tube, with output of approximately 1880 cc since placement. Will continue to work with pulmonology for vent weaning. 01/18: Only tolerated 1 hr of t piece trial yesterday per RT. Patient PaO2 50s on abg last night. Will continue to work with pulmonary medicine for vent weaning. abg, cbc, bmp, xr chest ordered for am. 01/19: On t piece trial this AM. labs reviewed. CXR reviewed and appears stable with no new changes. AB.42/47.8/112.3/30.9. Will follow pulmonary recommendations and plan to continue to wean off of vent. 01/20: Per CM, [facility] declined patient admission as there are T stated the patient was not amenable from the vent. Yesterday patient had tolerated T-piece trial for approximately 12 hours. Today patient only tolerated for 45 minutes. Had desatted and stated that she was in pain during today's trial. Output yesterday from chest tube 1000 cc. Today it is 100 cc thus far. Will obtain chest x-ray tomorrow. 01/21: XR chest demonstrate mild improvement in pulmonary edema. Chest tube OP: 400 cc on 01/20 and 450 cc thus far today. On CPAP trial this am. Hopefully patient can eventually be weaned off of vent. Placement continues to be a challenge as patient has been denied at all facilities thus far, working with CM who has been in frequent contact with [facility] 01/22: Yesterday the patient had lasted approximately 10 hours on T-piece trial. Output from chest tube approximately 525 cc yesterday. Thus far today patient has had 400 cc. Will follow with pulmonology regarding overall plan for chest tube and weaning patient off ventilator. 01/23: chest tube output 838 cc. Follow pulmonology plan re: chest tube and vent weaning. Placement remains challenging. 01/24: Very fatigue on t - piece trial yesterday afternoon, placed on full MV support. Will re-attempt today poss. Patient will complete Vancomycin course for MRSA tx on Friday 01/26. She has been afebrile sine 01/02. Current barriers to placement are weaning patient off of ventilator and removing chest tube as thus far all facilities have declined the patient. 01/25: AM CXR shows worsening pulmonary edema. On t-piece trial this AM. Patient still continues to have output from chest tube. Will follow pulmonary recs today. Assessment and Plan Neuro : Anxiety, chronic pain -Neurology consulted, appreciate recommendations -CT brain showed no acute events -EEG interpreted as abnormal record due to diffuse slowing noted throughout the recording, suggestive of encephalopathic process and/or drug effect, possibilities of postictal state cannot be totally excluded. Clinical correlation is in order -MRI brain not obtained-> patient has metal in her body -Repeat CT head with no acute findings -Reorientation as needed -Ammonia 42, B12 1823, TSH 1.5 -BuSpar, Seroquel, Mayer, gabapentin -prn xanax and Dilaudid Cardio: Acute Heart failure with reduced EF, h/o chronic heart block s/p PPM, HTN, CAD s/p PCI (2004), Moderate pulmonary HTN, cardiomyopathy -s/p vasopressor support with levophed -11/04 echocardiogram shows EF 30 to 35%, Moderate pulmonary HTN RVSP 49 -3/4 echo with 35-40% EF -Cardiology consulted, appreciate recommendations -Continue beta-charleen and statin therapy -Midodrine (titrate as needed) -Not on aspirin due to allergy -Blood pressure monitoring per protocol -As needed nitroglycerin Resp: Acute hypoxic respiratory failure secondary to bilateral pneumonia, recurrent bilateral pleural effusion s/p rt sided chest tube. Right pneumothorax (resolved). -COVID-19 PCR negative -Intubated on 11/06 with 6.00 ETT at 18 at the lip and changed over bougie on 11/11-7.50 ETT at 20 at the lip -See RT notes for titration -PSV as tolerated -Surgery consult for trach -Received trach/PEG on 11/26 -S/p bedside bronchoscopy on 11/11 complicated by pneumothorax -S/p chest tube placement for right pneumothorax and dislodgment by patient on 11/15 -ABG/CXR per CCM -VAP bundle -Right chest wall ultrasound showed pleural effusion s/p chest tube -12/11 US thoracentesis removed 1L fluid -12/29 US thoracentesis removed 1.4L fluid -01/06 thoracentesis planned -01/16 right-sided chest tube placed by IR -SPO2 monitoring GI: S/p GI bleed, duodenal ulcer, transaminitis -GI consulted, appreciate recommendations-signed off -Nutrition consult for tube feeding, currently on nepro TF 45 cc/hr, dropped to 30 cc/hr due to concerns for emesis. -BR: Senokot -s/p peg 11/26 -H2 charleen -Carafate -24-hour +428 ml -10/2021 Gastric occult positive -> EGD-> duodenal ulcer -12/14 occult stool positive - reglan prn. : Urinary retention (resolved), hyponatremia, hypochloremia -Strict intake and output -Trend BMP ID: Septic shock (POA-resolved), bilateral pneumonia, MRSA bacteremia/pna -Infectious disease consulted, appreciate recommendations -COVID-19 PCR negative -Presented with fevers, leukocytosis and hypotension -11/04 blood cultures positive with a group B strep bacteremia 12/19 however repeat blood cultures on the with no growth to date -Echo showed no evidence of vegetation -repeat echo showed EF 35-40 % with no vegetations -ABX therapy: IV vancomycin for 4 weeks (12/16-01/26) -Monitor WBC and fever curve -Bedside bronchoscopy for mucous plug on CXR 11/11 -f/u blood cultures Heme: Acute DVT in the right external iliac vein, common femoral vein, superior aspect of femoral vein, Acute microcytic anemia -Evidenced on bilateral upper lower extremity ultrasound -S/p 7 unit PRBC -Trend CBC -Transfuse for hemoglobin less than 7 -heparin gtt dc d/t anemia -S/p IVC filter Endo: h/o DM and hypothyroidism -Continue home Synthroid -SSI -Accu-Cheks every 6 -Avoid hypoglycemia The high probability of a clinically significant, sudden or life threatening deterioration of the [multi] system(s) required my full and direct attention, intervention and personal management. The aggregate critical care time was [60] minutes. This time is in addition to time spent performing reported procedures but includes the following: [x] Data Review and interpretation [x] Patient assessment and monitoring of vital signs [x] Documentation [x] Medication orders and management Hospitalist Physical - Physical exam Narrative exam: Physical Exam: VITAL SIGNS: Reviewed. GENERAL: The patient appears normally developed, Vital signs as documented. Frail appearing elderly woman. HEAD: No signs of head trauma. EYES: Pupils are equal. Extraocular motions intact. EARS: Hearing grossly intact. MOUTH: Oropharynx is normal. NECK: No adenopathy, no JVD. CHEST: Bl rhonchi. rt sided chest tube in place. CARDIAC: Regular rate and rhythm. S1 and S2, without murmurs, gallops, or rubs. VASCULAR: No Edema. Peripheral pulses normal and equal in all extremities. ABDOMEN: Soft, non tender and non distended. No rebound or guarding, and no masses palpated. Bowel Sounds normal. MUSCULOSKELETAL: Good range of motion of all major joints. Extremities without clubbing, cyanosis or edema. NEUROLOGIC EXAM: Alert and oriented x 4. no focal sensory or strength deficits. PSYCHIATRIC: anxious appearing SKIN: detail exam as documented in skin assessment - Constitutional Vitals: Temp Pulse Resp BP Pulse Ox 96.5 F L 76 25 H 105/45 100 01/25/22 00:00 01/25/22 06:00 01/25/22 06:00 01/25/22 06:00 01/25/22 06:11 General appearance: Present: no acute distress HEART Score - HEART Score Troponin: Troponin T 0.078 ng/mL (0.00-0.029) H 01/15/22 Unknown Results - Labs CBC & Chem 7: 01/19/22 04:50 01/19/22 04:50 Labs: Laboratory Last Values WBC 10.1 K/mm3 (4.5-11.0) 01/19/22 04:50 RBC 3.14 M/mm3 (3.65-5.03) L 01/19/22 04:50 Hgb 8.4 gm/dl (10.1-14.3) L 01/19/22 04:50 Hct 26.0 % (30.3-42.9) L 01/19/22 04:50 MCV 83 fl (79-97) 01/19/22 04:50 MCH 27 pg (28-32) L 01/19/22 04:50 MCHC 32 % (30-34) 01/19/22 04:50 RDW 18.2 % (13.2-15.2) H 01/19/22 04:50 Plt Count 222 K/mm3 (140-440) 01/19/22 04:50 Lymph % (Auto) 28.2 % (13.4-35.0) 01/19/22 04:50 Mills % (Auto) 5.3 % (0.0-7.3) 01/19/22 04:50 Eos % (Auto) 3.8 % (0.0-4.3) 01/19/22 04:50 Baso % (Auto) 0.8 % (0.0-1.8) 01/19/22 04:50 Lymph # (Auto) 2.8 K/mm3 (1.2-5.4) 01/19/22 04:50 Mills # (Auto) 0.5 K/mm3 (0.0-0.8) 01/19/22 04:50 Eos # (Auto) 0.4 K/mm3 (0.0-0.4) 01/19/22 04:50 Baso # (Auto) 0.1 K/mm3 (0.0-0.1) 01/19/22 04:50 Add Manual Diff Complete 01/19/22 04:50 Total Counted 100 01/15/22 14:36 Seg Neutrophils % 61.9 % (40.0-70.0) 01/19/22 04:50 Seg Neuts % (Manual) 82.0 % (40.0-70.0) H 01/15/22 14:36 Band Neutrophils % 0 % 01/15/22 14:36 Lymphocytes % (Manual) 11.0 % (13.4-35.0) L 01/15/22 14:36 Reactive Lymphs % (Man) 0 % 01/15/22 14:36 Monocytes % (Manual) 5.0 % (0.0-7.3) 01/15/22 14:36 Eosinophils % (Manual) 1.0 % (0.0-4.3) 01/15/22 14:36 Basophils % (Manual) 1.0 % (0.0-1.8) 01/15/22 14:36 Metamyelocytes % 0 % 01/15/22 14:36 Myelocytes % 0 % 01/15/22 14:36 Promyelocytes % 0 % 01/15/22 14:36 Blast Cells % 0 % 01/15/22 14:36 Nucleated RBC % Not Reportable 01/15/22 14:36 Seg Neutrophils # 6.2 K/mm3 (1.8-7.7) 01/19/22 04:50 Seg Neutrophils # Man 8.8 K/mm3 (1.8-7.7) H 01/15/22 14:36 Band Neutrophils # 0.0 K/mm3 01/15/22 14:36 Lymphocytes # (Manual) 1.2 K/mm3 (1.2-5.4) 01/15/22 14:36 Abs React Lymphs (Man) 0.0 K/mm3 01/15/22 14:36 Monocytes # (Manual) 0.5 K/mm3 (0.0-0.8) 01/15/22 14:36 Eosinophils # (Manual) 0.1 K/mm3 (0.0-0.4) 01/15/22 14:36 Basophils # (Manual) 0.1 K/mm3 (0.0-0.1) 01/15/22 14:36 Metamyelocytes # 0.0 K/mm3 01/15/22 14:36 Myelocytes # 0.0 K/mm3 01/15/22 14:36 Promyelocytes # 0.0 K/mm3 01/15/22 14:36 Blast Cells # 0.0 K/mm3 01/15/22 14:36 WBC Morphology Not Reportable 01/15/22 14:36 Hypersegmented Neuts Not Reportable 01/15/22 14:36 Hyposegmented Neuts Not Reportable 01/15/22 14:36 Hypogranular Neuts Not Reportable 01/15/22 14:36 Smudge Cells Not Reportable 01/15/22 14:36 Toxic Granulation Not Reportable 01/15/22 14:36 Toxic Vacuolation Not Reportable 01/15/22 14:36 Dohle Bodies Not Reportable 01/15/22 14:36 Pelger-Huet Anomaly Not Reportable 01/15/22 14:36 Irina Rods Not Reportable 01/15/22 14:36 Platelet Estimate Consistent w auto 01/15/22 14:36 Clumped Platelets Not Reportable 01/15/22 14:36 Plt Clumps, EDTA Not Reportable 01/15/22 14:36 Large Platelets Not Reportable 01/15/22 14:36 Giant Platelets Not Reportable 01/15/22 14:36 Platelet Satelliting Not Reportable 01/15/22 14:36 Plt Morphology Comment Not Reportable 01/15/22 14:36 RBC Morphology Not Reportable 01/15/22 14:36 Dimorphic RBCs Not Reportable 01/15/22 14:36 Polychromasia Not Reportable 01/15/22 14:36 Hypochromasia Not Reportable 01/15/22 14:36 Poikilocytosis Not Reportable 01/15/22 14:36 Anisocytosis 1+ 01/15/22 14:36 Microcytosis Not Reportable 01/15/22 14:36 Macrocytosis Not Reportable 01/15/22 14:36 Spherocytes Not Reportable 01/15/22 14:36 Pappenheimer Bodies Not Reportable 01/15/22 14:36 Sickle Cells Not Reportable 01/15/22 14:36 Target Cells Not Reportable 01/15/22 14:36 Tear Drop Cells Not Reportable 01/15/22 14:36 Ovalocytes Not Reportable 01/15/22 14:36 Helmet Cells Not Reportable 01/15/22 14:36 Odonnell-Mccormick Bodies Not Reportable 01/15/22 14:36 Cordova Rings Not Reportable 01/15/22 14:36 Malcom Cells Not Reportable 01/15/22 14:36 Bite Cells Not Reportable 01/15/22 14:36 Crenated Cell Not Reportable 01/15/22 14:36 Elliptocytes Not Reportable 01/15/22 14:36 Acanthocytes (Spur) Not Reportable 01/15/22 14:36 Rouleaux Not Reportable 01/15/22 14:36 Hemoglobin C Crystals Not Reportable 01/15/22 14:36 Schistocytes Not Reportable 01/15/22 14:36 Malaria parasites Not Reportable 01/15/22 14:36 Godfrey Bodies Not Reportable 01/15/22 14:36 Hem Pathologist Commnt No 01/15/22 14:36 PT 16.9 Sec. (12.2-14.9) H 01/06/22 04:06 INR 1.23 (0.87-1.13) H 01/06/22 04:06 APTT 29.2 Sec. (24.2-36.6) 11/26/21 05:00 D-Dimer 2655.00 ng/mlDDU (0-234) H 11/11/21 04:28 ABG pH 7.310 pH Units (7.350-7.450) L 01/23/22 11:50 ABG pCO2 56.8 mm Hg 01/23/22 11:50 ABG pO2 43.9 mm Hg (80.0-90.0) L 01/23/22 11:50 ABG HCO3 28.0 mmol/L (20.0-26.0) H 01/23/22 11:50 ABG O2 Saturation 70.8 % (95.0-99.0) L 01/23/22 11:50 ABG O2 Content 9.1 (0.0-44) 01/23/22 11:50 ABG Base Excess 1.1 mmol/L (-2.0-3.0) 01/23/22 11:50 ABG Hemoglobin 9.3 gm/dl (12.0-16.0) L 01/23/22 11:50 ABG Carboxyhemoglobin 1.7 % (0.0-5.0) 01/23/22 11:50 ABG Methemoglobin 0.6 % (0.0-1.5) 01/23/22 11:50 Oxyhemoglobin 69.2 % (95.0-99.0) L 01/23/22 11:50 FiO2 50 % 01/23/22 11:50 Sodium 134 mmol/L (137-145) L 01/19/22 04:50 Potassium 3.9 mmol/L (3.6-5.0) 01/19/22 04:50 Chloride 95.4 mmol/L (98-107) L 01/19/22 04:50 Carbon Dioxide 29 mmol/L (22-30) 01/19/22 04:50 Anion Gap 14 mmol/L 01/19/22 04:50 BUN 28 mg/dL (7-17) H 01/19/22 04:50 Creatinine 0.6 mg/dL (0.6-1.2) 01/19/22 04:50 Estimated GFR > 60 ml/min 01/19/22 04:50 BUN/Creatinine Ratio 47 % 01/19/22 04:50 Glucose 100 mg/dL (65-100) 01/19/22 04:50 POC Glucose 81 mg/dL (70-105) 01/24/22 23:52 Lactic Acid 3.70 mmol/L (0.7-2.0) H* 11/03/21 22:32 Calcium 8.7 mg/dL (8.4-10.2) 01/19/22 04:50 Phosphorus 3.70 mg/dL (2.5-4.5) 01/19/22 04:50 Magnesium 1.80 mg/dL (1.7-2.3) 01/19/22 04:50 Ferritin 52.6 ng/mL (10.0-200.0) 11/05/21 06:11 Total Bilirubin 0.50 mg/dL (0.1-1.2) 11/17/21 05:56 Direct Bilirubin < 0.2 mg/dL (0-0.2) 11/11/21 04:28 Indirect Bilirubin 0.1 mg/dL 11/11/21 04:28 AST 36 units/L (5-40) 11/17/21 05:56 ALT 47 units/L (7-56) 11/17/21 05:56 Alkaline Phosphatase 107 units/L (35-129) 11/17/21 05:56 Ammonia 42.0 umol/L (25-60) 11/10/21 14:08 Lactate Dehydrogenase 187 units/L (91-180) H 11/05/21 06:11 Troponin T 0.078 ng/mL (0.00-0.029) H 01/15/22 Unknown C-Reactive Protein 22.20 mg/dL (0.00-1.30) H 11/05/21 06:11 NT-Pro-B Natriuret Pep 7895 pg/mL (0-900) H 11/03/21 22:32 Total Protein 5.1 g/dL (6.3-8.2) L 11/17/21 05:56 Albumin 2.2 g/dL (3.9-5) L 11/17/21 05:56 Albumin/Globulin Ratio 0.8 % 11/17/21 05:56 Triglycerides 72 mg/dL (2-149) 01/15/22 21:07 Cholesterol 103 mg/dL (50-199) 01/15/22 21:07 LDL Cholesterol Direct 44 mg/dL (50-130) L 01/15/22 21:07 HDL Cholesterol 46 mg/dL (40-59) 01/15/22 21:07 Cholesterol/HDL Ratio 2.23 % 01/15/22 21:07 Vitamin B12 1823 pg/mL (211-911) H 11/10/21 14:08 TSH 1.510 mlU/mL (0.270-4.200) 11/10/21 14:08 Urine Color Shamika (Yellow) 01/23/22 09:36 Urine Turbidity Turbid (Clear) 01/23/22 09:36 Urine pH 7.0 (5.0-7.0) 01/23/22 09:36 Ur Specific [place] 1.011 (1.003-1.030) 01/23/22 09:36 Urine Protein <15 mg/dl mg/dL (Negative) 01/23/22 09:36 Urine Glucose (UA) Neg mg/dL (Negative) 01/23/22 09:36 Urine Ketones Neg mg/dL (Negative) 01/23/22 09:36 Urine Blood Sm (Negative) 01/23/22 09:36 Urine Nitrite Neg (Negative) 01/23/22 09:36 Urine Bilirubin Neg (Negative) 01/23/22 09:36 Urine Urobilinogen 2.0 mg/dL (<2.0) 01/23/22 09:36 Ur Leukocyte Esterase Lg (Negative) 01/23/22 09:36 Urine WBC (Auto) 16.0 /HPF (0.0-6.0) H 01/23/22 09:36 Urine RBC (Auto) 32.0 /HPF (0.0-6.0) 01/23/22 09:36 U Epithel Cells (Auto) 1.0 /HPF (0-13.0) 01/23/22 09:36 Urine Bacteria (Auto) 4+ /HPF (Negative) 01/23/22 09:36 Urine Mucus Few /HPF 01/23/22 09:36 Urine Yeast (Budding) 3+ /HPF 01/23/22 09:36 Urine Sperm Few /HPF ([employer]) 01/23/22 09:36 Fluid Type Pleural 01/06/22 13:40 Fluid Color Yellow 01/06/22 13:40 Fluid Appearance Hazy 01/06/22 13:40 Fluid WBC 273 /mm3 01/06/22 13:40 Fluid RBC 45 /mm3 01/06/22 13:40 Fluid Seg Neutrophils 47.0 % 01/06/22 13:40 Fluid Lymphocytes 22.0 % 01/06/22 13:40 Fluid Monocytes 10.0 % 01/06/22 13:40 Fluid Eosinophils 19.0 % 01/06/22 13:40 Fluid Basophils 2.0 % 01/06/22 13:40 Fluid Glucose 96 mg/dL (40-70) H 01/06/22 13:40 Fluid Total Protein < 3.0 (15.0-45.0) L 01/06/22 13:40 Fluid LDH 149 01/06/22 13:40 Vancomycin Trough 11.8 ug/mL (5.0-20.0) 01/22/22 10:14 Random Vancomycin 10.5 ug/mL (0-40.0) 01/04/22 05:00 Coronavirus (PCR) Negative (Negative) 11/10/21 08:30 Blood Type O POSITIVE 12/14/21 10:30 Antibody Screen Negative 12/14/21 10:30 Crossmatch See Detail 12/14/21 10:30 Microbiology: Microbiology 01/23/22 09:36 Urine,Clean Catch Urine Culture - Preliminary Gamble/IV: Voiding Method External Female Catheter Active Medications - Current Medications Current Medications: Generic Name Dose Route Start Last Admin Trade Name Freq PRN Reason Stop Dose Admin Acetaminophen 650 mg 12/14/21 04:12 01/17/22 11:27 Acetaminophen 325 Mg/10.15 Ml Oral Liqd Unit Dose FEEDTUBE 650 mg Q6H PRN Administration Non Cardiac Pain or Temp>100.5 Hydrocodone Bitart/Acetaminophen 1 each 11/21/21 10:00 01/24/22 19:53 Hydrocodone/Acetaminophen 10-325mg Tab FEEDTUBE 1 each TID YOSSI Administration Alprazolam 0.25 mg 01/22/22 03:00 01/24/22 19:53 Alprazolam 0.5 Mg Tab FEEDTUBE 0.25 mg Q8H PRN Administration Agitation Lipase/Protease/Amylase 1 each 11/08/21 11:09 Lipase 10,500/Protease 25,000/Amylase 43,750 (Units) Dr Lema FEEDTUBE PRN PRN For Clogged Feeding Tube Buspirone HCl 7.5 mg 12/30/21 10:00 01/24/22 21:55 Buspirone 5 Mg Tab FEEDTUBE 7.5 mg BID YOSSI Administration Dextrose 50 ml 01/16/22 14:00 Dextrose 50% In Water (25gm) 50 Ml Syringe IV Q30MIN PRN Hypoglycemia Protocol Docusate Sodium 100 mg 12/30/21 10:00 01/24/22 21:56 Docusate Sodium 100 Mg/10 Ml Oral Liqd FEEDTUBE 100 mg BID YOSSI Administration Furosemide 20 mg 01/08/22 10:00 01/24/22 10:05 Furosemide 20 Mg Tab PO 20 mg QDAY YOSSI Administration Gabapentin 100 mg 01/22/22 10:00 01/24/22 10:04 Gabapentin 500 Mg/10 Ml Oral Liqd FEEDTUBE 100 mg QDAY YOSSI Administration Hydrophilic Ointment 1 applic 11/06/21 04:02 Lip Therapy Vaseline TP Q2HR PRN Dry Lips Vancomycin HCl 1 gm in 250 mls @ 166.667 mls/hr 01/04/22 10:00 01/24/22 10:04 Vancomycin/Ns 1 Gm/250 Ml IV 01/26/22 11:29 166.667 mls/hr Q48H YOSSI Administration Lansoprazole 30 mg 11/24/21 22:00 01/24/22 21:55 Lansoprazole 30 Mg Solutab FEEDTUBE 30 mg BID YOSSI Administration Levothyroxine Sodium 125 mcg 12/31/21 06:00 01/25/22 06:22 Levothyroxine 125 Mcg Tab FEEDTUBE 125 mcg DAILY@0600 YOSSI Administration Melatonin 5 mg 12/05/21 22:00 01/24/22 21:55 Melatonin 5 Mg Tab PO 5 mg QHS YOSSI Administration Metoclopramide HCl 10 mg 01/11/22 13:25 01/21/22 21:43 Metoclopramide 10 Mg/2 Ml Inj IV 10 mg Q6H PRN Administration Nausea And Vomiting Metoprolol Tartrate 6.25 mg 12/30/21 10:00 01/24/22 21:55 Metoprolol Tartrate 25 Mg Tab FEEDTUBE 6.25 mg BID YOSSI Administration Midodrine 10 mg 01/21/22 08:00 01/24/22 18:10 Midodrine 5 Mg Tab FEEDTUBE 10 mg TID@0800,1200,1600 YOSSI Administration Multi-Ingred Cream/Lotion/Oil/Oint 1 applic 11/06/21 04:02 Mineral Oil/Petrolatum, White Ophth Oint 3.5 Gm OU Q4HR PRN Dry Eye(s) Ondansetron HCl 4 mg 12/05/21 10:00 01/20/22 22:10 Ondansetron 4 Mg/2 Ml Inj IV 4 mg Q8H PRN Administration Nausea And Vomiting Polyethylene Glycol 17 gm 12/30/21 10:00 01/24/22 10:06 Polyethylene Glycol 3350 17 Gm Powder FEEDTUBE Not Given QDAY YOSSI Pravastatin Sodium 20 mg 12/30/21 22:00 01/24/22 21:56 Pravastatin 20 Mg Tab FEEDTUBE 20 mg QHS YOSSI Administration Quetiapine Fumarate 25 mg 12/30/21 10:00 01/24/22 10:04 Quetiapine 25 Mg Tab FEEDTUBE 25 mg QAM YOSSI Administration Quetiapine Fumarate 50 mg 12/30/21 22:00 01/24/22 21:55 Quetiapine 25 Mg Tab FEEDTUBE 50 mg QHS YOSSI Administration Senna 17.6 mg 12/29/21 11:00 01/24/22 21:56 Sennosides Oral Liqd 8.8 Mg/5 Ml Oral Liqd FEEDTUBE 17.6 mg Q12HR YOSSI Administration Simethicone 80 mg 01/15/22 15:06 01/15/22 21:10 Simethicone 80 Mg Chew Tab PO 80 mg PC PRN Administration Gas pain Simple Syrup 15 ml 11/08/21 11:09 Simple Syrup 15 Ml FEEDTUBE PRN PRN Hypoglycemia Simple Syrup 30 ml 11/08/21 11:09 Simple Syrup 15 Ml FEEDTUBE PRN PRN Hypoglycemia Sodium Bicarbonate 325 mg 11/08/21 11:09 01/09/22 20:25 Sodium Bicarbonate 325 Mg Tab FEEDTUBE 325 mg PRN PRN Administration For Clogged Feeding Tube Sodium Chloride 10 ml 11/04/21 10:00 01/24/22 21:56 Sodium Chloride 0.9% 10 Ml Flush Syringe IV 10 ml BID YOSSI Administration Sodium Chloride 10 ml 01/18/22 02:03 01/09/22 06:35 Sodium Chloride 0.9% 10 Ml Flush Syringe IV 10 ml PRN PRN Administration LINE FLUSH Spironolactone 25 mg 12/30/21 10:00 01/24/22 10:05 Spironolactone 25 Mg Tab FEEDTUBE 25 mg QDAY YOSSI Administration Sucralfate 1 gm 12/30/21 12:00 01/25/22 06:22 Sucralfate 1 Gm/10 Ml Oral Liqd FEEDTUBE 1 gm Q6HR YOSSI Administration Trazodone HCl 50 mg 12/04/21 22:00 01/24/22 21:55 Trazodone 50 Mg Tab PO 50 mg QHS YOSSI Administration Nutrition/Malnutrition Assess - Dietary Evaluation Nutrition/Malnutrition Findings: Nutrition Notes Start: 11/04/21 17:16 Freq: Status: Active Protocol: Document 01/19/22 12:15 [facility] (Rec: 01/19/22 12:21 [facility] [id number]) Nutrition Notes Initial or Follow up Reassessment Current Diagnosis Coronary Artery Disease, Diabetes,Hypertension,Heart Failure,Respiratory Failure Other Pertinent Diagnosis Bilat pleural effusion Current Diet TF - Vital AF 1.2 at 35ml/hr Labs/Tests Na 134 BUN 28 Pertinent Medications Reviewed Height 5 ft Weight 62.3 kg [place] Body Weight (kg) 45.45 BMI 26.8 Weight Status Overweight Subjective/Other Information Observing TF infusing at 35ml/ hr; per, RN, pt tolerating TF. One BM reported this am. Pt on trach collar support at time of visit (10:50). Percent of energy/protein needs met: 84% energy and pro Burn Absent Trauma Absent #2 Nutrition Diagnosis Inadequate enteral nutrition infusion As Evidenced by Signs and Symptoms current TF rate provides at least 75% energy and pro needs Diagnosis Progress(for reassessment Resolved documentation) #1 Nutrition Diagnosis Inadequate oral intake Diagnosis Progress(for reassessment Continues documentation) Is patient on ventilator? No Is Patient Ambulatory and/or Out of Bed No REE-([place]-St. Jeor-confined to bed) 0626.009 Calculation Used for Recommendations [place]-St Jeor Additional Notes Pro needs 1.2-2g/k-125g/ day Fluid needs 1ml/kcal Nutrition Intervention Nutrition Support: Continue Vital AF 1.2 at 35ml/ hr with 50ml water flush q4h. Kcal 1,008 Protein (gm) 63 Carbohydrates (gm) 45 Fat (gm) 45 Fluid (mL) 681 Fiber (gm) 4 Add Supplement/Snack (indicate name/kcal Jaswant BID /protein ) Provides kCal: 190 Provides Protein (gm) 5 Goal #1 TF tolerance Goal #2 TF to meet at least 75% energy and pro needs Goal #3 Wound healing Follow-Up By: 01/26/22 Additional Comments F/U: stable TF, wt, vent status, wound healing/Jaswant administration
--- NOTE | 2022-01-25 09:06 | XRay Report ---
CHEST - 1 VIEW INDICATION: bl pleural effusions COMPARISON: 01/21/2022 FINDINGS: SUPPORT DEVICES: Stable support device positioning. HEART: Stable cardiomediastinal silhouette. LUNGS/PLEURA: Moderate-sized left and trace right pleural effusions with patchy underlying airspace disease in the lungs. ADDITIONAL FINDINGS: None. IMPRESSION: Worsened exam. Signer Name: Reji Morgan MD Signed: 01/25/2022 9:02 AM Workstation Name: [id number]
[2022-01-25] MEDS: METOPROLOL TARTRATE 25 MG TAB FEEDTUBE SCH ×2 (10:43→21:53)
[2022-01-25] MEDS: LANSOPRAZOLE 30 MG SOLUTAB FEEDTUBE SCH ×2 (10:43→21:54)
[2022-01-25] MEDS: MIDODRINE 5 MG TAB FEEDTUBE SCH ×3 (10:43→18:33)
[2022-01-25] MEDS: FUROSEMIDE 20 MG TAB PO SCH (10:43)
[2022-01-25] MEDS: GABAPENTIN 500 MG/10 ML ORAL LIQD FEEDTUBE SCH (10:43)
[2022-01-25] MEDS: HYDROcodone/ACETAMINOPHEN 10-325MG TAB FEEDTUBE SCH ×3 (10:43→19:47)
[2022-01-25] MEDS: QUEtiapine 25 MG TAB FEEDTUBE SCH ×2 (10:44→21:54)
[2022-01-25] MEDS: busPIRone 5 MG TAB FEEDTUBE SCH ×2 (10:44→21:53)
[2022-01-25] MEDS: SPIRONOLACTONE 25 MG TAB FEEDTUBE SCH (10:44)
[2022-01-25] MEDS: POLYETHYLENE GLYCOL 3350 17 GM POWDER FEEDTUBE SCH (10:45)
[2022-01-25] MEDS: SENNOSIDES ORAL LIQD 8.8 MG/5 ML ORAL LIQD FEEDTUBE SCH ×2 (10:45→21:53)
[2022-01-25] MEDS: DOCUSATE SODIUM 100 MG/10 ML ORAL LIQD FEEDTUBE SCH ×2 (10:45→21:52)
[2022-01-25 12:33] LABS: ABG Base Excess 4.7 mmol/L (-2.0-3.0); ABG HCO3 28.3 mmol/L (20.0-26.0); ABG Methemoglobin 0.5 % (0.0-1.5); ABG Oxygen Saturation 94.9 % (95.0-99.0); ABG PCO2 38.2 mm Hg; ABG PH 7.488 pH Units (7.350-7.450); ABG PO2 58.9 mm Hg (80.0-90.0)
--- NOTE | 2022-01-25 14:31 | Progress Note ---
Assessment and Plan 81-year-old female with known history of diabetes mellitus, hypertension and arthritis brought to the emergency room via EMS for shortness of breath which has been ongoing for the past 3 days prior to come to the emergency room. Patient has been having some cough and shortness of breath. According to patient's , patient has also been having a fever of about 102.2 F. Upon arrival of EMS patient was found to be tachypneic with O2 saturation of 76% on room air which later improved to 88% on nonrebreather. Work-up in the emergency room , chest x-ray shows bilateral interstitial pulmonary edema with bilateral pleural effusions.. Bibasilar opacities which favors atelectasis. Lab reveals leukocytosis of 29. Hemoglobin of 6.1. Patient received blood transfusion and also checked for COVID-19. Patient Ivy virus test reported negative. Patient intubated and placed on mechanical ventilation. Patient transfered to ICU. Patient undergone thoracentesis and chest tube placement. Patient still on mechanical ventilation. Patient transfered to [facility]. Patient awake. Resting on T tube , FIO2 40% and O2 saturation running 99%. Tolerating T tube good . No acute respiratory distress. ABG on FIO2 35% ABG pH 7.488 pH Units (7.350-7.450) H 01/25/22 12:20 ABG pCO2 38.2 mm Hg 01/25/22 12:20 ABG pO2 58.9 mm Hg (80.0-90.0) L 01/25/22 12:20 ABG O2 Saturation 94.9 % (95.0-99.0) L 01/25/22 12:20 PT/INR, D-dimer Increased FIO2 to 40%. Patient afebrile. No leukocytosis.Blood pressure 144/69, Pulse 84 , respirations 16 Patients recent HGB 8.4 01/19/22 Chest xray 12/11/21 reported Diffuse bilateral pulmonary opacities most significant in the left lung and right upper lung .No pneumothorax. Chest xray done 01/01/22 reported Worsening bilateral pulmonary opacities and effusions Chest xray 01/05/22 reported Diffuse bilateral pleuroparenchymal opacities, right greater than left, are similar to the prior exam. No pneumothorax. Patient undergone thoracentesis under Ultrasound guidance. Repeat chest xray post thoracentesis 01/06/22 reported Near complete evacuation of the right pleural effusion. No pneumothorax. Pleural fluid cell count wbc 273, RBC 45 Pleural fluid chemistry Protein less than 3, [id number], Glucose 96. Pleural fluid is transudate. Repeat chest xray 01/16/22 reported Diffuse bilateral pulmonary opacities and effusions. Right PICC line tip overlies distal SVC. Small right chest tube is noted without large pneumothorax Chest xray done 01/19/22 reported stable diffuse bilateral interstitial infiltrates and small effusions. Chest xray 01/21/22 reported Mildly improved pulmonary edema and bilateral pleural effusions. No pneumothorax. Chest xray done 01/25/22 reported Moderate-sized left and trace right pleural effusions with patchy underlying airspace disease in the lungs. Patient is on Vancomycin, Prevacid and Sucralfate and lasix. Recommend SCDs. Patient is on tube feeding. I spent critical care time of 35 minutes, reviewing the chart, examine the patient, review lab results, chest xray and talk to respiratory therapy and nursing staff and work out plan of treatment in this critically ill patient. - Patient Problems (1) Acute respiratory failure with hypoxia Current Visit: Yes Status: Acute Plan to address problem: On T tube, FIO2 40%. Continue Prevacid. SCDs. (2) Bilateral pneumonia Current Visit: Yes Status: Acute Plan to address problem: Patient is on vancomycin. (3) Occult blood positive stool Current Visit: Yes Status: Acute Plan to address problem: Management as per gastroenterology. (4) Acute anemia Current Visit: Yes Status: Acute Plan to address problem: Patient received blood transfusion. HGB 8.4 on 01/19/22. (5) Suspected COVID-19 virus infection Current Visit: Yes Status: Acute Plan to address problem: Ivy virus PCR negative. (6) Pleural effusion Current Visit: Yes Status: Acute Plan to address problem: Patient unergone right thoracentesis under ultrasound guidance. Post thoracentesis chest xray reported Near complete evacuation of the right pleural effusion. No pneumothorax. Pleural fluid cell count wbc 273, RBC 45 Pleural fluid chemistry Protein less than 3, [id number], Glucose 96. Pleural fluid is transudate. Subjective Date of service: 01/25/22 Principal diagnosis: Septic shock; AHRF; Anemia; Pneumonia; pleural effusion; HFrEF; Pulm HTN Interval history: 81-year-old female with known history of diabetes mellitus, hypertension and arthritis brought to the emergency room via EMS for shortness of breath which h as been ongoing for the past 3 days prior to come to the emergency room. Patient has been having some cough and shortness of breath. According to patient's , patient has also been having a fever of about 102.2 F. Upon arrival of EMS patient was found to be tachypneic with O2 saturation of 76% on room air which later improved to 88% on nonrebreather. Work-up in the emergency room , chest x-ray shows bilateral interstitial pulmonary edema with bilateral pleural effusions.. Bibasilar opacities which favors atelectasis. Lab reveals leukocytosis of 29. Hemoglobin of 6.1. Patient received blood transfusion and also checked for COVID-19. Patient Ivy virus test reported negative. Patient intubated and placed on mechanical ventilation. Patient transfered to ICU. Patient undergone thoracentesis and chest tube placement. Patient still on mechanical ventilation. Patient transfered to IMCU. Patient awake. Resting on T tube , FIO2 40% and O2 saturation running 99%. Tolerating T tube good . No acute respiratory distress. ABG on FIO2 35% ABG pH 7.488 pH Units (7.350-7.450) H 01/25/22 12:20 ABG pCO2 38.2 mm Hg 01/25/22 12:20 ABG pO2 58.9 mm Hg (80.0-90.0) L 01/25/22 12:20 ABG O2 Saturation 94.9 % (95.0-99.0) L 01/25/22 12:20 PT/INR, D-dimer Increased FIO2 to 40%. Patient afebrile. No leukocytosis.Blood pressure 144/69, Pulse 84 , respirations 16 Patients recent HGB 8.4 01/19/22 Chest xray 12/11/21 reported Diffuse bilateral pulmonary opacities most significant in the left lung and right upper lung .No pneumothorax. Chest xray done 01/01/22 reported Worsening bilateral pulmonary opacities and effusions Chest xray 01/05/22 reported Diffuse bilateral pleuroparenchymal opacities, right greater than left, are similar to the prior exam. No pneumothorax. Patient undergone thoracentesis under Ultrasound guidance. Repeat chest xray post thoracentesis 01/06/22 reported Near complete evacuation of the right pleural effusion. No pneumothorax. Pleural fluid cell count wbc 273, RBC 45 Pleural fluid chemistry Protein less than 3, [id number], Glucose 96. Pleural fluid is transudate. Repeat chest xray 01/16/22 reported Diffuse bilateral pulmonary opacities and effusions. Right PICC line tip overlies distal SVC. Small right chest tube is noted without large pneumothorax Chest xray done 01/19/22 reported stable diffuse bilateral interstitial infiltrates and small effusions. Chest xray 01/21/22 reported Mildly improved pulmonary edema and bilateral pleural effusions. No pneumothorax. Chest xray done 01/25/22 reported Moderate-sized left and trace right pleural effusions with patchy underlying airspace disease in the lungs. Patient is on Vancomycin, Prevacid and Sucralfate and lasix. Recommend SCDs. Patient is on tube feeding. Objective Vital Signs - 12hr 01/25/22 01/25/22 01/25/22 03:00 04:00 05:00 Temperature Pulse Rate 60 60 60 Pulse Rate [ 74 From Monitor] Respiratory 16 17 19 Rate Blood Pressure 100/41 97/42 105/45 O2 Sat by Pulse 99 100 100 Oximetry O2 Sat by Pulse Oximetry [ Assessment] 01/25/22 01/25/22 01/25/22 06:00 06:11 07:00 Temperature Pulse Rate 76 73 Pulse Rate [ From Monitor] Respiratory 25 H 27 H Rate Blood Pressure 105/45 142/69 O2 Sat by Pulse 100 98 Oximetry O2 Sat by Pulse 100 Oximetry [ Assessment] 01/25/22 01/25/22 01/25/22 08:00 09:00 09:30 Temperature 97.0 F L Pulse Rate 71 75 Pulse Rate [ 64 From Monitor] Respiratory 18 23 16 Rate Blood Pressure 130/55 130/55 O2 Sat by Pulse 99 98 97 Oximetry O2 Sat by Pulse 100 Oximetry [ Assessment] 01/25/22 01/25/22 01/25/22 10:00 10:43 10:44 Temperature Pulse Rate 83 80 80 Pulse Rate [ From Monitor] Respiratory 29 H Rate Blood Pressure 149/75 149/75 149/75 O2 Sat by Pulse 96 Oximetry O2 Sat by Pulse Oximetry [ Assessment] 01/25/22 01/25/22 11:00 12:10 Temperature Pulse Rate 84 Pulse Rate [ From Monitor] Respiratory 36 H 16 Rate Blood Pressure 144/69 O2 Sat by Pulse 97 99 Oximetry O2 Sat by Pulse Oximetry [ Assessment] Constitutional: no acute distress, alert, other (Resting on T tube.) Eyes: non-icteric ENT: oropharynx moist, other (+ Midline tracheostomy with minimal secretions) Neck: supple, no lymphadenopathy, no JVD Effort: mildly labored Ascultation: Bilateral: diminished breath sounds, rhonchi, other (Right chest tube) Percussion: Right: not dull, Left: dull (bases) Cardiovascular: regular rate and rhythm, other (S1,S2) Gastrointestinal: normoactive bowel sounds, soft, non-tender, non-distended (protuberant) Integumentary: normal Extremities: no cyanosis, pink and warm, pulses normal, edema (upper etremities), anasarca Neurologic: non-focal exam (grossly), pupils equal and round, CN II-XII normal Psychiatric: mood appropriate, affect normal CBC and BMP: 01/19/22 04:50 01/19/22 04:50 ABG, PT/INR, D-dimer: ABG ABG pH 7.488 pH Units (7.350-7.450) H 01/25/22 12:20 ABG pCO2 38.2 mm Hg 01/25/22 12:20 ABG pO2 58.9 mm Hg (80.0-90.0) L 01/25/22 12:20 ABG O2 Saturation 94.9 % (95.0-99.0) L 01/25/22 12:20 PT/INR, D-dimer PT 16.9 Sec. (12.2-14.9) H 01/06/22 04:06 INR 1.23 (0.87-1.13) H 01/06/22 04:06 D-Dimer 2655.00 ng/mlDDU (0-234) H 11/11/21 04:28 Abnormal lab findings: Abnormal Labs 11/03/21 11/03/21 11/03/21 22:32 22:32 22:32 WBC 29.3 H RBC 2.93 L Hgb 6.1 L Hct 21.9 L MCV 75 L MCH 21 L MCHC 28 L RDW 19.7 H Plt Count Seg Neuts % (Manual) 97.0 H Lymphocytes % (Manual) 3.0 L Seg Neutrophils # Man 28.4 H Lymphocytes # (Manual) 0.9 L Monocytes # (Manual) PT 18.6 H INR 1.40 H D-Dimer ABG pH ABG pO2 ABG HCO3 ABG O2 Saturation ABG Base Excess ABG Hemoglobin Oxyhemoglobin Sodium Potassium Chloride Carbon Dioxide 20 L BUN 33 H Creatinine Glucose 119 H POC Glucose Lactic Acid Calcium 8.3 L Phosphorus Magnesium AST ALT Alkaline Phosphatase Lactate Dehydrogenase Troponin T 0.035 H C-Reactive Protein NT-Pro-B Natriuret Pep Total Protein Albumin LDL Cholesterol Direct 34 L Vitamin B12 Urine WBC (Auto) Fluid Glucose Fluid Total Protein Vancomycin Trough Crossmatch 11/03/21 11/03/21 11/03/21 22:32 22:32 23:57 WBC RBC Hgb Hct MCV MCH MCHC RDW Plt Count Seg Neuts % (Manual) Lymphocytes % (Manual) Seg Neutrophils # Man Lymphocytes # (Manual) Monocytes # (Manual) PT INR D-Dimer ABG pH ABG pO2 ABG HCO3 ABG O2 Saturation ABG Base Excess ABG Hemoglobin Oxyhemoglobin Sodium Potassium Chloride Carbon Dioxide BUN Creatinine Glucose POC Glucose Lactic Acid 3.70 H* Calcium Phosphorus Magnesium AST ALT Alkaline Phosphatase 139 H Lactate Dehydrogenase Troponin T C-Reactive Protein NT-Pro-B Natriuret Pep 7895 H Total Protein Albumin 3.5 L LDL Cholesterol Direct Vitamin B12 Urine WBC (Auto) Fluid Glucose Fluid Total Protein Vancomycin Trough Crossmatch See Detail 11/04/21 11/04/21 11/05/21 00:59 13:58 00:51 WBC 27.9 H RBC 3.28 L Hgb 7.3 L Hct 25.5 L MCV 78 L MCH 22 L MCHC 29 L RDW 19.1 H Plt Count Seg Neuts % (Manual) 96.0 H Lymphocytes % (Manual) 2.0 L Seg Neutrophils # Man 26.8 H Lymphocytes # (Manual) 0.6 L Monocytes # (Manual) PT INR D-Dimer ABG pH ABG pO2 ABG HCO3 ABG O2 Saturation ABG Base Excess ABG Hemoglobin Oxyhemoglobin Sodium Potassium Chloride Carbon Dioxide BUN Creatinine Glucose POC Glucose Lactic Acid Calcium Phosphorus Magnesium AST ALT Alkaline Phosphatase Lactate Dehydrogenase Troponin T 0.051 H D 0.032 H D C-Reactive Protein NT-Pro-B Natriuret Pep Total Protein Albumin LDL Cholesterol Direct Vitamin B12 Urine WBC (Auto) Fluid Glucose Fluid Total Protein Vancomycin Trough Crossmatch 11/05/21 11/05/21 11/05/21 06:11 06:11 06:11 WBC 31.8 H RBC 3.57 L Hgb 8.0 L Hct 27.7 L MCV 78 L MCH 22 L MCHC 29 L RDW 19.2 H Plt Count Seg Neuts % (Manual) 91.0 H Lymphocytes % (Manual) 4.5 L Seg Neutrophils # Man 28.9 H Lymphocytes # (Manual) Monocytes # (Manual) 1.1 H PT INR D-Dimer 1494.53 H ABG pH ABG pO2 ABG HCO3 ABG O2 Saturation ABG Base Excess ABG Hemoglobin Oxyhemoglobin Sodium Potassium Chloride Carbon Dioxide 19 L BUN 42 H Creatinine Glucose 115 H POC Glucose Lactic Acid Calcium Phosphorus Magnesium AST 43 H ALT Alkaline Phosphatase Lactate Dehydrogenase 187 H Troponin T C-Reactive Protein 22.20 H NT-Pro-B Natriuret Pep Total Protein 6.0 L Albumin 3.2 L LDL Cholesterol Direct Vitamin B12 Urine WBC (Auto) Fluid Glucose Fluid Total Protein Vancomycin Trough Crossmatch 11/05/21 11/05/21 11/06/21 06:11 12:15 00:30 WBC RBC Hgb Hct MCV MCH MCHC RDW Plt Count Seg Neuts % (Manual) Lymphocytes % (Manual) Seg Neutrophils # Man Lymphocytes # (Manual) Monocytes # (Manual) PT INR D-Dimer ABG pH ABG pO2 ABG HCO3 ABG O2 Saturation ABG Base Excess ABG Hemoglobin Oxyhemoglobin Sodium Potassium Chloride Carbon Dioxide BUN Creatinine Glucose POC Glucose 113 H 69 L Lactic Acid Calcium Phosphorus Magnesium AST ALT Alkaline Phosphatase Lactate Dehydrogenase Troponin T 0.033 H C-Reactive Protein NT-Pro-B Natriuret Pep Total Protein Albumin LDL Cholesterol Direct Vitamin B12 Urine WBC (Auto) Fluid Glucose Fluid Total Protein Vancomycin Trough Crossmatch 11/06/21 11/06/21 11/06/21 05:50 15:50 15:50 WBC 25.5 H RBC 3.62 L Hgb 8.0 L Hct 27.5 L MCV 76 L MCH 22 L MCHC 29 L RDW 19.6 H Plt Count Seg Neuts % (Manual) 92.0 H Lymphocytes % (Manual) 5.0 L Seg Neutrophils # Man 23.5 H Lymphocytes # (Manual) Monocytes # (Manual) PT INR D-Dimer ABG pH 7.305 L ABG pO2 ABG HCO3 15.8 L ABG O2 Saturation ABG Base Excess -9.6 L ABG Hemoglobin 8.6 L Oxyhemoglobin 94.6 L Sodium Potassium Chloride 113.9 H Carbon Dioxide 17 L BUN 56 H Creatinine Glucose 114 H POC Glucose Lactic Acid Calcium 7.9 L Phosphorus Magnesium AST 1410 H ALT 934 H Alkaline Phosphatase 142 H Lactate Dehydrogenase Troponin T C-Reactive Protein NT-Pro-B Natriuret Pep Total Protein 5.0 L Albumin 2.6 L LDL Cholesterol Direct Vitamin B12 Urine WBC (Auto) Fluid Glucose Fluid Total Protein Vancomycin Trough Crossmatch 11/07/21 11/07/21 11/07/21 03:30 04:50 08:07 WBC RBC Hgb Hct MCV MCH MCHC RDW Plt Count Seg Neuts % (Manual) Lymphocytes % (Manual) Seg Neutrophils # Man Lymphocytes # (Manual) Monocytes # (Manual) PT INR D-Dimer ABG pH ABG pO2 296.9 H ABG HCO3 18.1 L ABG O2 Saturation 99.5 H ABG Base Excess -5.9 L ABG Hemoglobin 7.6 L Oxyhemoglobin Sodium Potassium Chloride Carbon Dioxide BUN Creatinine Glucose POC Glucose 106 H 108 H Lactic Acid Calcium Phosphorus Magnesium AST ALT Alkaline Phosphatase Lactate Dehydrogenase Troponin T C-Reactive Protein NT-Pro-B Natriuret Pep Total Protein Albumin LDL Cholesterol Direct Vitamin B12 Urine WBC (Auto) Fluid Glucose Fluid Total Protein Vancomycin Trough Crossmatch 11/08/21 11/08/21 11/08/21 03:10 18:05 23:43 WBC RBC Hgb Hct MCV MCH MCHC RDW Plt Count Seg Neuts % (Manual) Lymphocytes % (Manual) Seg Neutrophils # Man Lymphocytes # (Manual) Monocytes # (Manual) PT INR D-Dimer ABG pH ABG pO2 127.4 H ABG HCO3 ABG O2 Saturation ABG Base Excess -3.4 L ABG Hemoglobin 7.4 L Oxyhemoglobin Sodium Potassium Chloride Carbon Dioxide BUN Creatinine Glucose POC Glucose 113 H 141 H Lactic Acid Calcium Phosphorus Magnesium AST ALT Alkaline Phosphatase Lactate Dehydrogenase Troponin T C-Reactive Protein NT-Pro-B Natriuret Pep Total Protein Albumin LDL Cholesterol Direct Vitamin B12 Urine WBC (Auto) Fluid Glucose Fluid Total Protein Vancomycin Trough Crossmatch 11/08/21 11/08/21 11/09/21 Unknown Unknown 02:00 WBC 14.5 H RBC 3.35 L Hgb 7.5 L 8.1 L Hct 25.4 L 27.6 L MCV 76 L 76 L MCH 23 L 22 L MCHC RDW 19.9 H 19.9 H Plt Count Seg Neuts % (Manual) Lymphocytes % (Manual) Seg Neutrophils # Man Lymphocytes # (Manual) Monocytes # (Manual) PT INR D-Dimer ABG pH ABG pO2 ABG HCO3 ABG O2 Saturation ABG Base Excess ABG Hemoglobin Oxyhemoglobin Sodium 154 H D Potassium 3.3 L Chloride 120.7 H Carbon Dioxide 20 L BUN 38 H Creatinine Glucose POC Glucose Lactic Acid Calcium 8.3 L Phosphorus Magnesium AST ALT Alkaline Phosphatase Lactate Dehydrogenase Troponin T C-Reactive Protein NT-Pro-B Natriuret Pep Total Protein Albumin LDL Cholesterol Direct Vitamin B12 Urine WBC (Auto) Fluid Glucose Fluid Total Protein Vancomycin Trough Crossmatch 11/09/21 11/09/21 11/09/21 02:00 02:31 05:12 WBC RBC Hgb Hct MCV MCH MCHC RDW Plt Count Seg Neuts % (Manual) Lymphocytes % (Manual) Seg Neutrophils # Man Lymphocytes # (Manual) Monocytes # (Manual) PT INR D-Dimer ABG pH 7.479 H ABG pO2 121.3 H ABG HCO3 ABG O2 Saturation ABG Base Excess ABG Hemoglobin 7.3 L Oxyhemoglobin Sodium Potassium Chloride 112.5 H Carbon Dioxide BUN 33 H Creatinine Glucose 161 H POC Glucose 135 H Lactic Acid Calcium Phosphorus Magnesium AST 251 H ALT 481 H Alkaline Phosphatase Lactate Dehydrogenase Troponin T C-Reactive Protein NT-Pro-B Natriuret Pep Total Protein 5.0 L Albumin 2.8 L LDL Cholesterol Direct Vitamin B12 Urine WBC (Auto) Fluid Glucose Fluid Total Protein Vancomycin Trough Crossmatch 11/09/21 11/09/21 11/09/21 11:33 16:32 23:28 WBC RBC Hgb Hct MCV MCH MCHC RDW Plt Count Seg Neuts % (Manual) Lymphocytes % (Manual) Seg Neutrophils # Man Lymphocytes # (Manual) Monocytes # (Manual) PT INR D-Dimer ABG pH ABG pO2 ABG HCO3 ABG O2 Saturation ABG Base Excess ABG Hemoglobin Oxyhemoglobin Sodium Potassium Chloride Carbon Dioxide BUN Creatinine Glucose POC Glucose 132 H 133 H 143 H Lactic Acid Calcium Phosphorus Magnesium AST ALT Alkaline Phosphatase Lactate Dehydrogenase Troponin T C-Reactive Protein NT-Pro-B Natriuret Pep Total Protein Albumin LDL Cholesterol Direct Vitamin B12 Urine WBC (Auto) Fluid Glucose Fluid Total Protein Vancomycin Trough Crossmatch 11/10/21 11/10/21 11/10/21 04:00 04:00 05:35 WBC 16.0 H RBC 3.61 L Hgb 8.0 L Hct 27.1 L MCV 75 L MCH 22 L MCHC RDW 20.4 H Plt Count Seg Neuts % (Manual) Lymphocytes % (Manual) Seg Neutrophils # Man Lymphocytes # (Manual) Monocytes # (Manual) PT INR D-Dimer ABG pH ABG pO2 ABG HCO3 ABG O2 Saturation ABG Base Excess ABG Hemoglobin Oxyhemoglobin Sodium 149 H Potassium Chloride 114.1 H Carbon Dioxide BUN 31 H Creatinine Glucose 148 H POC Glucose 132 H Lactic Acid Calcium 8.2 L Phosphorus Magnesium AST ALT Alkaline Phosphatase Lactate Dehydrogenase Troponin T C-Reactive Protein NT-Pro-B Natriuret Pep Total Protein Albumin LDL Cholesterol Direct Vitamin B12 Urine WBC (Auto) Fluid Glucose Fluid Total Protein Vancomycin Trough Crossmatch 11/10/21 11/10/21 11/10/21 11:31 14:08 15:35 WBC RBC Hgb Hct MCV MCH MCHC RDW Plt Count Seg Neuts % (Manual) Lymphocytes % (Manual) Seg Neutrophils # Man Lymphocytes # (Manual) Monocytes # (Manual) PT INR D-Dimer ABG pH ABG pO2 126.6 H ABG HCO3 ABG O2 Saturation ABG Base Excess ABG Hemoglobin 7.4 L Oxyhemoglobin Sodium Potassium Chloride Carbon Dioxide BUN Creatinine Glucose POC Glucose 147 H Lactic Acid Calcium Phosphorus Magnesium AST ALT Alkaline Phosphatase Lactate Dehydrogenase Troponin T C-Reactive Protein NT-Pro-B Natriuret Pep Total Protein Albumin LDL Cholesterol Direct Vitamin B12 1823 H Urine WBC (Auto) Fluid Glucose Fluid Total Protein Vancomycin Trough Crossmatch 11/10/21 11/11/21 11/11/21 17:53 00:55 04:28 WBC RBC Hgb Hct MCV MCH MCHC RDW Plt Count Seg Neuts % (Manual) Lymphocytes % (Manual) Seg Neutrophils # Man Lymphocytes # (Manual) Monocytes # (Manual) PT INR D-Dimer ABG pH ABG pO2 ABG HCO3 ABG O2 Saturation ABG Base Excess ABG Hemoglobin Oxyhemoglobin Sodium 149 H Potassium Chloride 112.2 H Carbon Dioxide BUN 34 H Creatinine Glucose 148 H POC Glucose 140 H 145 H Lactic Acid Calcium 7.9 L Phosphorus Magnesium AST 53 H ALT 203 H Alkaline Phosphatase Lactate Dehydrogenase Troponin T C-Reactive Protein NT-Pro-B Natriuret Pep Total Protein 4.9 L Albumin 2.6 L LDL Cholesterol Direct Vitamin B12 Urine WBC (Auto) Fluid Glucose Fluid Total Protein Vancomycin Trough Crossmatch 11/11/21 11/11/21 11/11/21 04:28 04:28 05:28 WBC 20.9 H RBC 3.47 L Hgb 7.5 L Hct 26.0 L MCV 75 L MCH 22 L MCHC 29 L RDW 21.6 H Plt Count 132 L Seg Neuts % (Manual) Lymphocytes % (Manual) Seg Neutrophils # Man Lymphocytes # (Manual) Monocytes # (Manual) PT INR D-Dimer 2655.00 H ABG pH ABG pO2 ABG HCO3 ABG O2 Saturation ABG Base Excess ABG Hemoglobin Oxyhemoglobin Sodium Potassium Chloride Carbon Dioxide BUN Creatinine Glucose POC Glucose 154 H Lactic Acid Calcium Phosphorus Magnesium AST ALT Alkaline Phosphatase Lactate Dehydrogenase Troponin T C-Reactive Protein NT-Pro-B Natriuret Pep Total Protein Albumin LDL Cholesterol Direct Vitamin B12 Urine WBC (Auto) Fluid Glucose Fluid Total Protein Vancomycin Trough Crossmatch 11/11/21 11/11/21 11/12/21 12:38 18:13 00:14 WBC RBC Hgb Hct MCV MCH MCHC RDW Plt Count Seg Neuts % (Manual) Lymphocytes % (Manual) Seg Neutrophils # Man Lymphocytes # (Manual) Monocytes # (Manual) PT INR D-Dimer ABG pH ABG pO2 ABG HCO3 ABG O2 Saturation ABG Base Excess ABG Hemoglobin Oxyhemoglobin Sodium Potassium Chloride Carbon Dioxide BUN Creatinine Glucose POC Glucose 137 H 108 H 137 H Lactic Acid Calcium Phosphorus Magnesium AST ALT Alkaline Phosphatase Lactate Dehydrogenase Troponin T C-Reactive Protein NT-Pro-B Natriuret Pep Total Protein Albumin LDL Cholesterol Direct Vitamin B12 Urine WBC (Auto) Fluid Glucose Fluid Total Protein Vancomycin Trough Crossmatch 11/12/21 11/12/21 11/12/21 05:40 06:24 11:12 WBC RBC Hgb Hct MCV MCH MCHC RDW Plt Count Seg Neuts % (Manual) Lymphocytes % (Manual) Seg Neutrophils # Man Lymphocytes # (Manual) Monocytes # (Manual) PT INR D-Dimer ABG pH 7.586 H ABG pO2 150.6 H ABG HCO3 27.2 H ABG O2 Saturation 99.1 H ABG Base Excess 5.2 H ABG Hemoglobin 7.5 L Oxyhemoglobin Sodium Potassium Chloride Carbon Dioxide BUN Creatinine Glucose POC Glucose 132 H 140 H Lactic Acid Calcium Phosphorus Magnesium AST ALT Alkaline Phosphatase Lactate Dehydrogenase Troponin T C-Reactive Protein NT-Pro-B Natriuret Pep Total Protein Albumin LDL Cholesterol Direct Vitamin B12 Urine WBC (Auto) Fluid Glucose Fluid Total Protein Vancomycin Trough Crossmatch 11/12/21 11/12/21 11/12/21 14:50 14:50 17:13 WBC 19.8 H RBC 3.27 L Hgb 7.1 L Hct 24.5 L MCV 75 L MCH 22 L MCHC 29 L RDW 22.3 H Plt Count Seg Neuts % (Manual) Lymphocytes % (Manual) Seg Neutrophils # Man Lymphocytes # (Manual) Monocytes # (Manual) PT INR D-Dimer ABG pH ABG pO2 ABG HCO3 ABG O2 Saturation ABG Base Excess ABG Hemoglobin Oxyhemoglobin Sodium 150 H Potassium 3.3 L Chloride 112.0 H Carbon Dioxide BUN 40 H Creatinine Glucose 151 H POC Glucose 121 H Lactic Acid Calcium 7.4 L Phosphorus 1.70 L Magnesium 1.40 L AST ALT Alkaline Phosphatase Lactate Dehydrogenase Troponin T C-Reactive Protein NT-Pro-B Natriuret Pep Total Protein Albumin LDL Cholesterol Direct Vitamin B12 Urine WBC (Auto) Fluid Glucose Fluid Total Protein Vancomycin Trough Crossmatch 11/12/21 11/13/21 11/13/21 23:19 05:34 06:30 WBC RBC Hgb Hct MCV MCH MCHC RDW Plt Count Seg Neuts % (Manual) Lymphocytes % (Manual) Seg Neutrophils # Man Lymphocytes # (Manual) Monocytes # (Manual) PT INR D-Dimer ABG pH ABG pO2 ABG HCO3 ABG O2 Saturation ABG Base Excess ABG Hemoglobin Oxyhemoglobin Sodium 149 H Potassium Chloride 60.0 L Carbon Dioxide BUN 40 H Creatinine Glucose 146 H POC Glucose 113 H 132 H Lactic Acid Calcium 7.3 L Phosphorus Magnesium 2.40 H AST ALT 72 H Alkaline Phosphatase Lactate Dehydrogenase Troponin T C-Reactive Protein NT-Pro-B Natriuret Pep Total Protein 5.2 L Albumin 2.2 L LDL Cholesterol Direct Vitamin B12 Urine WBC (Auto) Fluid Glucose Fluid Total Protein Vancomycin Trough Crossmatch 11/13/21 11/13/21 11/13/21 06:30 08:30 11:19 WBC 21.2 H RBC 3.12 L Hgb 6.8 L Hct 23.2 L MCV 74 L MCH 22 L MCHC 29 L RDW 22.2 H Plt Count 135 L Seg Neuts % (Manual) Lymphocytes % (Manual) Seg Neutrophils # Man Lymphocytes # (Manual) Monocytes # (Manual) PT INR D-Dimer ABG pH ABG pO2 ABG HCO3 ABG O2 Saturation ABG Base Excess ABG Hemoglobin Oxyhemoglobin Sodium Potassium Chloride Carbon Dioxide BUN Creatinine Glucose POC Glucose 136 H Lactic Acid Calcium Phosphorus Magnesium AST ALT Alkaline Phosphatase Lactate Dehydrogenase Troponin T C-Reactive Protein NT-Pro-B Natriuret Pep Total Protein Albumin LDL Cholesterol Direct Vitamin B12 Urine WBC (Auto) Fluid Glucose Fluid Total Protein Vancomycin Trough Crossmatch See Detail 11/13/21 11/14/21 11/14/21 18:21 00:01 04:46 WBC 20.0 H RBC 3.41 L Hgb 7.9 L Hct 26.8 L MCV MCH 23 L MCHC 29 L RDW 24.0 H Plt Count Seg Neuts % (Manual) Lymphocytes % (Manual) Seg Neutrophils # Man Lymphocytes # (Manual) Monocytes # (Manual) PT INR D-Dimer ABG pH ABG pO2 ABG HCO3 ABG O2 Saturation ABG Base Excess ABG Hemoglobin Oxyhemoglobin Sodium Potassium Chloride Carbon Dioxide BUN Creatinine Glucose POC Glucose 149 H 141 H Lactic Acid Calcium Phosphorus Magnesium AST ALT Alkaline Phosphatase Lactate Dehydrogenase Troponin T C-Reactive Protein NT-Pro-B Natriuret Pep Total Protein Albumin LDL Cholesterol Direct Vitamin B12 Urine WBC (Auto) Fluid Glucose Fluid Total Protein Vancomycin Trough Crossmatch 11/14/21 11/14/21 11/14/21 04:46 05:10 11:10 WBC RBC Hgb Hct MCV MCH MCHC RDW Plt Count Seg Neuts % (Manual) Lymphocytes % (Manual) Seg Neutrophils # Man Lymphocytes # (Manual) Monocytes # (Manual) PT INR D-Dimer ABG pH ABG pO2 ABG HCO3 ABG O2 Saturation ABG Base Excess ABG Hemoglobin Oxyhemoglobin Sodium 148 H Potassium Chloride 113.1 H Carbon Dioxide BUN 43 H Creatinine Glucose 140 H POC Glucose 132 H 133 H Lactic Acid Calcium 7.5 L Phosphorus Magnesium AST ALT Alkaline Phosphatase Lactate Dehydrogenase Troponin T C-Reactive Protein NT-Pro-B Natriuret Pep Total Protein Albumin LDL Cholesterol Direct Vitamin B12 Urine WBC (Auto) Fluid Glucose Fluid Total Protein Vancomycin Trough Crossmatch 11/14/21 11/14/21 11/14/21 16:14 17:48 23:23 WBC RBC Hgb Hct MCV MCH MCHC RDW Plt Count Seg Neuts % (Manual) Lymphocytes % (Manual) Seg Neutrophils # Man Lymphocytes # (Manual) Monocytes # (Manual) PT INR D-Dimer ABG pH ABG pO2 ABG HCO3 28.0 H ABG O2 Saturation ABG Base Excess 3.1 H ABG Hemoglobin 5.8 L Oxyhemoglobin 94.8 L Sodium Potassium Chloride Carbon Dioxide BUN Creatinine Glucose POC Glucose 130 H 136 H Lactic Acid Calcium Phosphorus Magnesium AST ALT Alkaline Phosphatase Lactate Dehydrogenase Troponin T C-Reactive Protein NT-Pro-B Natriuret Pep Total Protein Albumin LDL Cholesterol Direct Vitamin B12 Urine WBC (Auto) Fluid Glucose Fluid Total Protein Vancomycin Trough Crossmatch 11/15/21 11/15/21 11/15/21 05:20 05:50 05:50 WBC 19.9 H RBC 3.50 L Hgb 8.2 L Hct 27.9 L MCV MCH 23 L MCHC 29 L RDW 24.9 H Plt Count Seg Neuts % (Manual) Lymphocytes % (Manual) Seg Neutrophils # Man Lymphocytes # (Manual) Monocytes # (Manual) PT INR D-Dimer ABG pH ABG pO2 ABG HCO3 ABG O2 Saturation ABG Base Excess ABG Hemoglobin Oxyhemoglobin Sodium 149 H Potassium Chloride 112.0 H Carbon Dioxide BUN 48 H Creatinine Glucose 152 H POC Glucose 137 H Lactic Acid Calcium 7.9 L Phosphorus Magnesium AST ALT Alkaline Phosphatase Lactate Dehydrogenase Troponin T C-Reactive Protein NT-Pro-B Natriuret Pep Total Protein Albumin LDL Cholesterol Direct Vitamin B12 Urine WBC (Auto) Fluid Glucose Fluid Total Protein Vancomycin Trough Crossmatch 11/15/21 11/15/21 11/15/21 12:12 17:07 23:24 WBC RBC Hgb Hct MCV MCH MCHC RDW Plt Count Seg Neuts % (Manual) Lymphocytes % (Manual) Seg Neutrophils # Man Lymphocytes # (Manual) Monocytes # (Manual) PT INR D-Dimer ABG pH ABG pO2 ABG HCO3 ABG O2 Saturation ABG Base Excess ABG Hemoglobin Oxyhemoglobin Sodium Potassium Chloride Carbon Dioxide BUN Creatinine Glucose POC Glucose 114 H 135 H 123 H Lactic Acid Calcium Phosphorus Magnesium AST ALT Alkaline Phosphatase Lactate Dehydrogenase Troponin T C-Reactive Protein NT-Pro-B Natriuret Pep Total Protein Albumin LDL Cholesterol Direct Vitamin B12 Urine WBC (Auto) Fluid Glucose Fluid Total Protein Vancomycin Trough Crossmatch 11/16/21 11/16/21 11/16/21 05:21 10:00 10:00 WBC 21.7 H RBC 2.57 L Hgb 6.0 L Hct 20.2 L D MCV MCH 24 L MCHC RDW 26.3 H Plt Count Seg Neuts % (Manual) Lymphocytes % (Manual) Seg Neutrophils # Man Lymphocytes # (Manual) Monocytes # (Manual) PT INR D-Dimer ABG pH ABG pO2 ABG HCO3 ABG O2 Saturation ABG Base Excess ABG Hemoglobin Oxyhemoglobin Sodium 153 H Potassium Chloride 114.9 H Carbon Dioxide BUN 74 H Creatinine Glucose 155 H POC Glucose 127 H Lactic Acid Calcium 8.1 L Phosphorus Magnesium AST ALT Alkaline Phosphatase Lactate Dehydrogenase Troponin T C-Reactive Protein NT-Pro-B Natriuret Pep Total Protein Albumin LDL Cholesterol Direct Vitamin B12 Urine WBC (Auto) Fluid Glucose Fluid Total Protein Vancomycin Trough Crossmatch 11/16/21 11/16/21 11/16/21 11:34 14:00 15:25 WBC 17.2 H RBC 2.08 L Hgb 4.7 L* Hct 16.2 L* MCV 78 L MCH 23 L MCHC 29 L RDW 26.0 H Plt Count Seg Neuts % (Manual) 87.0 H Lymphocytes % (Manual) 8.0 L Seg Neutrophils # Man 15.0 H Lymphocytes # (Manual) Monocytes # (Manual) 0.9 H PT INR D-Dimer ABG pH ABG pO2 ABG HCO3 ABG O2 Saturation ABG Base Excess ABG Hemoglobin Oxyhemoglobin Sodium Potassium Chloride Carbon Dioxide BUN Creatinine Glucose POC Glucose 131 H Lactic Acid Calcium Phosphorus Magnesium AST ALT Alkaline Phosphatase Lactate Dehydrogenase Troponin T C-Reactive Protein NT-Pro-B Natriuret Pep Total Protein Albumin LDL Cholesterol Direct Vitamin B12 Urine WBC (Auto) Fluid Glucose Fluid Total Protein Vancomycin Trough Crossmatch See Detail 11/16/21 11/16/21 11/16/21 15:25 17:21 22:43 WBC RBC Hgb 8.6 L D Hct 27.7 L D MCV MCH MCHC RDW Plt Count Seg Neuts % (Manual) Lymphocytes % (Manual) Seg Neutrophils # Man Lymphocytes # (Manual) Monocytes # (Manual) PT INR D-Dimer ABG pH ABG pO2 ABG HCO3 ABG O2 Saturation ABG Base Excess ABG Hemoglobin Oxyhemoglobin Sodium 148 H Potassium Chloride 113.2 H Carbon Dioxide BUN 84 H Creatinine Glucose 164 H POC Glucose 124 H Lactic Acid Calcium 7.6 L Phosphorus Magnesium AST ALT Alkaline Phosphatase Lactate Dehydrogenase Troponin T C-Reactive Protein NT-Pro-B Natriuret Pep Total Protein Albumin LDL Cholesterol Direct Vitamin B12 Urine WBC (Auto) Fluid Glucose Fluid Total Protein Vancomycin Trough Crossmatch 11/16/21 11/17/21 11/17/21 23:07 05:33 05:56 WBC 25.1 H RBC 3.47 L Hgb 8.7 L Hct 28.5 L MCV MCH 25 L MCHC RDW 22.3 H Plt Count Seg Neuts % (Manual) Lymphocytes % (Manual) Seg Neutrophils # Man Lymphocytes # (Manual) Monocytes # (Manual) PT INR D-Dimer ABG pH ABG pO2 ABG HCO3 ABG O2 Saturation ABG Base Excess ABG Hemoglobin Oxyhemoglobin Sodium Potassium Chloride Carbon Dioxide BUN Creatinine Glucose POC Glucose 128 H 133 H Lactic Acid Calcium Phosphorus Magnesium AST ALT Alkaline Phosphatase Lactate Dehydrogenase Troponin T C-Reactive Protein NT-Pro-B Natriuret Pep Total Protein Albumin LDL Cholesterol Direct Vitamin B12 Urine WBC (Auto) Fluid Glucose Fluid Total Protein Vancomycin Trough Crossmatch 11/17/21 11/17/21 11/17/21 05:56 11:00 11:55 WBC RBC Hgb 8.3 L Hct 26.9 L MCV MCH MCHC RDW Plt Count Seg Neuts % (Manual) Lymphocytes % (Manual) Seg Neutrophils # Man Lymphocytes # (Manual) Monocytes # (Manual) PT INR D-Dimer ABG pH ABG pO2 ABG HCO3 ABG O2 Saturation ABG Base Excess ABG Hemoglobin Oxyhemoglobin Sodium 151 H Potassium Chloride 113.6 H Carbon Dioxide BUN 85 H Creatinine Glucose 132 H POC Glucose 121 H Lactic Acid Calcium 7.8 L Phosphorus Magnesium AST ALT Alkaline Phosphatase Lactate Dehydrogenase Troponin T C-Reactive Protein NT-Pro-B Natriuret Pep Total Protein 5.1 L Albumin 2.2 L LDL Cholesterol Direct Vitamin B12 Urine WBC (Auto) Fluid Glucose Fluid Total Protein Vancomycin Trough Crossmatch 11/17/21 11/17/21 11/18/21 18:04 18:55 00:26 WBC RBC Hgb 7.5 L 7.1 L Hct 24.8 L 23.6 L MCV MCH MCHC RDW Plt Count Seg Neuts % (Manual) Lymphocytes % (Manual) Seg Neutrophils # Man Lymphocytes # (Manual) Monocytes # (Manual) PT INR D-Dimer ABG pH ABG pO2 ABG HCO3 ABG O2 Saturation ABG Base Excess ABG Hemoglobin Oxyhemoglobin Sodium Potassium Chloride Carbon Dioxide BUN Creatinine Glucose POC Glucose 144 H Lactic Acid Calcium Phosphorus Magnesium AST ALT Alkaline Phosphatase Lactate Dehydrogenase Troponin T C-Reactive Protein NT-Pro-B Natriuret Pep Total Protein Albumin LDL Cholesterol Direct Vitamin B12 Urine WBC (Auto) Fluid Glucose Fluid Total Protein Vancomycin Trough Crossmatch 11/18/21 11/18/21 11/18/21 00:43 05:10 05:10 WBC 12.5 H RBC 2.39 L Hgb 6.1 L Hct 20.2 L MCV MCH 25 L MCHC RDW 23.2 H Plt Count Seg Neuts % (Manual) Lymphocytes % (Manual) Seg Neutrophils # Man Lymphocytes # (Manual) Monocytes # (Manual) PT INR D-Dimer ABG pH ABG pO2 ABG HCO3 ABG O2 Saturation ABG Base Excess ABG Hemoglobin Oxyhemoglobin Sodium 131 L D Potassium 2.9 L* D Chloride 97.8 L Carbon Dioxide BUN 58 H Creatinine Glucose 665 H* POC Glucose 139 H Lactic Acid Calcium 7.0 L Phosphorus 2.20 L D Magnesium 1.50 L AST ALT Alkaline Phosphatase Lactate Dehydrogenase Troponin T C-Reactive Protein NT-Pro-B Natriuret Pep Total Protein Albumin LDL Cholesterol Direct Vitamin B12 Urine WBC (Auto) Fluid Glucose Fluid Total Protein Vancomycin Trough Crossmatch 11/18/21 11/18/21 11/18/21 05:23 07:10 10:45 WBC RBC Hgb Hct MCV MCH MCHC RDW Plt Count Seg Neuts % (Manual) Lymphocytes % (Manual) Seg Neutrophils # Man Lymphocytes # (Manual) Monocytes # (Manual) PT INR D-Dimer ABG pH ABG pO2 ABG HCO3 ABG O2 Saturation ABG Base Excess ABG Hemoglobin Oxyhemoglobin Sodium 148 H D Potassium 3.1 L Chloride 111.9 H Carbon Dioxide BUN 63 H Creatinine Glucose 141 H POC Glucose 124 H Lactic Acid Calcium 8.1 L D Phosphorus Magnesium AST ALT Alkaline Phosphatase Lactate Dehydrogenase Troponin T C-Reactive Protein NT-Pro-B Natriuret Pep Total Protein Albumin LDL Cholesterol Direct Vitamin B12 Urine WBC (Auto) Fluid Glucose Fluid Total Protein Vancomycin Trough Crossmatch See Detail 11/18/21 11/19/21 11/19/21 11:57 00:19 04:55 WBC RBC 3.35 L Hgb 9.0 L 8.9 L Hct 28.3 L D 28.1 L MCV MCH 27 L MCHC RDW 20.3 H Plt Count Seg Neuts % (Manual) Lymphocytes % (Manual) Seg Neutrophils # Man Lymphocytes # (Manual) Monocytes # (Manual) PT INR D-Dimer ABG pH ABG pO2 ABG HCO3 ABG O2 Saturation ABG Base Excess ABG Hemoglobin Oxyhemoglobin Sodium Potassium Chloride Carbon Dioxide BUN Creatinine Glucose POC Glucose 119 H Lactic Acid Calcium Phosphorus Magnesium AST ALT Alkaline Phosphatase Lactate Dehydrogenase Troponin T C-Reactive Protein NT-Pro-B Natriuret Pep Total Protein Albumin LDL Cholesterol Direct Vitamin B12 Urine WBC (Auto) Fluid Glucose Fluid Total Protein Vancomycin Trough Crossmatch 11/19/21 11/19/21 11/20/21 04:55 05:42 00:55 WBC RBC Hgb 9.0 L Hct 28.6 L MCV MCH MCHC RDW Plt Count Seg Neuts % (Manual) Lymphocytes % (Manual) Seg Neutrophils # Man Lymphocytes # (Manual) Monocytes # (Manual) PT INR D-Dimer ABG pH ABG pO2 ABG HCO3 ABG O2 Saturation ABG Base Excess ABG Hemoglobin Oxyhemoglobin Sodium Potassium 3.5 L Chloride 108.6 H Carbon Dioxide BUN 47 H Creatinine Glucose 207 H POC Glucose 63 L Lactic Acid Calcium 7.1 L Phosphorus Magnesium AST ALT Alkaline Phosphatase Lactate Dehydrogenase Troponin T C-Reactive Protein NT-Pro-B Natriuret Pep Total Protein Albumin LDL Cholesterol Direct Vitamin B12 Urine WBC (Auto) Fluid Glucose Fluid Total Protein Vancomycin Trough Crossmatch 11/20/21 11/20/21 11/20/21 05:40 05:40 Unknown WBC RBC 3.40 L Hgb 9.1 L Hct 28.8 L MCV MCH 27 L MCHC RDW 20.7 H Plt Count Seg Neuts % (Manual) Lymphocytes % (Manual) Seg Neutrophils # Man Lymphocytes # (Manual) Monocytes # (Manual) PT INR D-Dimer ABG pH ABG pO2 ABG HCO3 ABG O2 Saturation ABG Base Excess -2.7 L ABG Hemoglobin 9.5 L Oxyhemoglobin 94.3 L Sodium Potassium 3.5 L Chloride 108.9 H Carbon Dioxide BUN 37 H Creatinine Glucose 117 H POC Glucose Lactic Acid Calcium 7.5 L Phosphorus Magnesium AST ALT Alkaline Phosphatase Lactate Dehydrogenase Troponin T C-Reactive Protein NT-Pro-B Natriuret Pep Total Protein Albumin LDL Cholesterol Direct Vitamin B12 Urine WBC (Auto) Fluid Glucose Fluid Total Protein Vancomycin Trough Crossmatch 11/21/21 11/21/21 11/21/21 04:30 04:30 16:00 WBC RBC 3.25 L Hgb 8.6 L Hct 28.1 L MCV MCH 26 L MCHC RDW 20.7 H Plt Count Seg Neuts % (Manual) Lymphocytes % (Manual) Seg Neutrophils # Man Lymphocytes # (Manual) Monocytes # (Manual) PT INR D-Dimer ABG pH ABG pO2 114.2 H ABG HCO3 ABG O2 Saturation ABG Base Excess ABG Hemoglobin 9.1 L Oxyhemoglobin Sodium 134 L Potassium Chloride Carbon Dioxide 20 L BUN 34 H Creatinine Glucose POC Glucose Lactic Acid Calcium 7.1 L Phosphorus Magnesium AST ALT Alkaline Phosphatase Lactate Dehydrogenase Troponin T C-Reactive Protein NT-Pro-B Natriuret Pep Total Protein Albumin LDL Cholesterol Direct Vitamin B12 Urine WBC (Auto) Fluid Glucose Fluid Total Protein Vancomycin Trough Crossmatch 11/22/21 11/22/21 11/22/21 07:07 07:07 23:54 WBC RBC 3.30 L Hgb 9.0 L Hct 28.5 L MCV MCH 27 L MCHC RDW 21.0 H Plt Count Seg Neuts % (Manual) Lymphocytes % (Manual) Seg Neutrophils # Man Lymphocytes # (Manual) Monocytes # (Manual) PT INR D-Dimer ABG pH ABG pO2 ABG HCO3 ABG O2 Saturation ABG Base Excess ABG Hemoglobin Oxyhemoglobin Sodium Potassium Chloride Carbon Dioxide BUN 32 H Creatinine Glucose 106 H POC Glucose 110 H Lactic Acid Calcium 7.5 L Phosphorus Magnesium AST ALT Alkaline Phosphatase Lactate Dehydrogenase Troponin T C-Reactive Protein NT-Pro-B Natriuret Pep Total Protein Albumin LDL Cholesterol Direct Vitamin B12 Urine WBC (Auto) Fluid Glucose Fluid Total Protein Vancomycin Trough Crossmatch 11/23/21 11/23/21 11/23/21 04:38 04:38 06:01 WBC RBC 3.23 L Hgb 8.8 L Hct 28.0 L MCV MCH 27 L MCHC RDW 21.3 H Plt Count Seg Neuts % (Manual) Lymphocytes % (Manual) Seg Neutrophils # Man Lymphocytes # (Manual) Monocytes # (Manual) PT INR D-Dimer ABG pH ABG pO2 ABG HCO3 ABG O2 Saturation ABG Base Excess ABG Hemoglobin Oxyhemoglobin Sodium 136 L Potassium Chloride Carbon Dioxide 20 L BUN 32 H Creatinine Glucose 109 H POC Glucose 115 H Lactic Acid Calcium 7.7 L Phosphorus Magnesium AST ALT Alkaline Phosphatase Lactate Dehydrogenase Troponin T C-Reactive Protein NT-Pro-B Natriuret Pep Total Protein Albumin LDL Cholesterol Direct Vitamin B12 Urine WBC (Auto) Fluid Glucose Fluid Total Protein Vancomycin Trough Crossmatch 11/23/21 11/24/21 11/24/21 11:40 00:03 04:13 WBC RBC 3.18 L Hgb 8.5 L Hct 27.5 L MCV MCH 27 L MCHC RDW 21.6 H Plt Count Seg Neuts % (Manual) Lymphocytes % (Manual) Seg Neutrophils # Man Lymphocytes # (Manual) Monocytes # (Manual) PT INR D-Dimer ABG pH ABG pO2 ABG HCO3 ABG O2 Saturation ABG Base Excess ABG Hemoglobin Oxyhemoglobin Sodium Potassium Chloride Carbon Dioxide BUN Creatinine Glucose POC Glucose 117 H 111 H Lactic Acid Calcium Phosphorus Magnesium AST ALT Alkaline Phosphatase Lactate Dehydrogenase Troponin T C-Reactive Protein NT-Pro-B Natriuret Pep Total Protein Albumin LDL Cholesterol Direct Vitamin B12 Urine WBC (Auto) Fluid Glucose Fluid Total Protein Vancomycin Trough Crossmatch 11/24/21 11/24/21 11/24/21 04:13 05:30 11:10 WBC RBC Hgb Hct MCV MCH MCHC RDW Plt Count Seg Neuts % (Manual) Lymphocytes % (Manual) Seg Neutrophils # Man Lymphocytes # (Manual) Monocytes # (Manual) PT INR D-Dimer ABG pH ABG pO2 ABG HCO3 ABG O2 Saturation ABG Base Excess ABG Hemoglobin Oxyhemoglobin Sodium Potassium Chloride Carbon Dioxide BUN 31 H Creatinine Glucose 101 H POC Glucose 115 H 107 H Lactic Acid Calcium 7.7 L Phosphorus Magnesium AST ALT Alkaline Phosphatase Lactate Dehydrogenase Troponin T C-Reactive Protein NT-Pro-B Natriuret Pep Total Protein Albumin LDL Cholesterol Direct Vitamin B12 Urine WBC (Auto) Fluid Glucose Fluid Total Protein Vancomycin Trough Crossmatch 11/24/21 11/24/21 11/25/21 16:34 17:57 05:12 WBC RBC 3.11 L Hgb 8.2 L Hct 26.6 L MCV MCH 26 L MCHC RDW 21.3 H Plt Count Seg Neuts % (Manual) Lymphocytes % (Manual) Seg Neutrophils # Man Lymphocytes # (Manual) Monocytes # (Manual) PT INR D-Dimer ABG pH ABG pO2 ABG HCO3 ABG O2 Saturation ABG Base Excess ABG Hemoglobin Oxyhemoglobin Sodium Potassium Chloride Carbon Dioxide BUN Creatinine Glucose POC Glucose 115 H 110 H Lactic Acid Calcium Phosphorus Magnesium AST ALT Alkaline Phosphatase Lactate Dehydrogenase Troponin T C-Reactive Protein NT-Pro-B Natriuret Pep Total Protein Albumin LDL Cholesterol Direct Vitamin B12 Urine WBC (Auto) Fluid Glucose Fluid Total Protein Vancomycin Trough Crossmatch 11/25/21 11/25/21 11/26/21 05:12 11:20 05:00 WBC RBC 3.30 L Hgb 8.8 L Hct 28.2 L MCV MCH 27 L MCHC RDW 20.7 H Plt Count Seg Neuts % (Manual) Lymphocytes % (Manual) Seg Neutrophils # Man Lymphocytes # (Manual) Monocytes # (Manual) PT INR D-Dimer ABG pH ABG pO2 ABG HCO3 ABG O2 Saturation ABG Base Excess ABG Hemoglobin Oxyhemoglobin Sodium Potassium Chloride Carbon Dioxide BUN 32 H Creatinine Glucose 118 H POC Glucose 118 H Lactic Acid Calcium 8.2 L Phosphorus Magnesium AST ALT Alkaline Phosphatase Lactate Dehydrogenase Troponin T C-Reactive Protein NT-Pro-B Natriuret Pep Total Protein Albumin LDL Cholesterol Direct Vitamin B12 Urine WBC (Auto) Fluid Glucose Fluid Total Protein Vancomycin Trough Crossmatch 11/26/21 11/26/21 11/26/21 05:00 05:00 05:44 WBC RBC Hgb Hct MCV MCH MCHC RDW Plt Count Seg Neuts % (Manual) Lymphocytes % (Manual) Seg Neutrophils # Man Lymphocytes # (Manual) Monocytes # (Manual) PT 16.9 H INR 1.24 H D-Dimer ABG pH ABG pO2 ABG HCO3 ABG O2 Saturation ABG Base Excess ABG Hemoglobin Oxyhemoglobin Sodium Potassium Chloride Carbon Dioxide BUN 31 H Creatinine Glucose 104 H POC Glucose 110 H Lactic Acid Calcium 7.9 L Phosphorus Magnesium AST ALT Alkaline Phosphatase Lactate Dehydrogenase Troponin T C-Reactive Protein NT-Pro-B Natriuret Pep Total Protein Albumin LDL Cholesterol Direct Vitamin B12 Urine WBC (Auto) Fluid Glucose Fluid Total Protein Vancomycin Trough Crossmatch 11/26/21 11/27/21 11/27/21 23:55 07:40 07:40 WBC RBC 3.18 L Hgb 8.5 L Hct 27.0 L MCV MCH 27 L MCHC RDW 21.2 H Plt Count Seg Neuts % (Manual) Lymphocytes % (Manual) Seg Neutrophils # Man Lymphocytes # (Manual) Monocytes # (Manual) PT INR D-Dimer ABG pH ABG pO2 ABG HCO3 ABG O2 Saturation ABG Base Excess ABG Hemoglobin Oxyhemoglobin Sodium Potassium Chloride Carbon Dioxide BUN 27 H Creatinine Glucose 112 H POC Glucose 63 L Lactic Acid Calcium 7.6 L Phosphorus Magnesium AST ALT Alkaline Phosphatase Lactate Dehydrogenase Troponin T C-Reactive Protein NT-Pro-B Natriuret Pep Total Protein Albumin LDL Cholesterol Direct Vitamin B12 Urine WBC (Auto) Fluid Glucose Fluid Total Protein Vancomycin Trough Crossmatch 11/27/21 11/27/21 11/27/21 12:04 13:40 13:40 WBC RBC 3.31 L Hgb 8.7 L Hct 28.0 L MCV MCH 26 L MCHC RDW 20.7 H Plt Count Seg Neuts % (Manual) Lymphocytes % (Manual) Seg Neutrophils # Man Lymphocytes # (Manual) Monocytes # (Manual) PT INR D-Dimer ABG pH ABG pO2 ABG HCO3 ABG O2 Saturation ABG Base Excess ABG Hemoglobin Oxyhemoglobin Sodium 136 L Potassium Chloride Carbon Dioxide BUN 25 H Creatinine Glucose 127 H POC Glucose 109 H Lactic Acid Calcium 7.6 L Phosphorus Magnesium 1.40 L AST ALT Alkaline Phosphatase Lactate Dehydrogenase Troponin T C-Reactive Protein NT-Pro-B Natriuret Pep Total Protein Albumin LDL Cholesterol Direct Vitamin B12 Urine WBC (Auto) Fluid Glucose Fluid Total Protein Vancomycin Trough Crossmatch 11/27/21 11/27/21 11/28/21 17:44 23:33 12:20 WBC RBC Hgb Hct MCV MCH MCHC RDW Plt Count Seg Neuts % (Manual) Lymphocytes % (Manual) Seg Neutrophils # Man Lymphocytes # (Manual) Monocytes # (Manual) PT INR D-Dimer ABG pH ABG pO2 ABG HCO3 ABG O2 Saturation ABG Base Excess ABG Hemoglobin Oxyhemoglobin Sodium Potassium Chloride Carbon Dioxide BUN Creatinine Glucose POC Glucose 107 H 108 H 114 H Lactic Acid Calcium Phosphorus Magnesium AST ALT Alkaline Phosphatase Lactate Dehydrogenase Troponin T C-Reactive Protein NT-Pro-B Natriuret Pep Total Protein Albumin LDL Cholesterol Direct Vitamin B12 Urine WBC (Auto) Fluid Glucose Fluid Total Protein Vancomycin Trough Crossmatch 11/29/21 11/29/21 11/29/21 00:09 03:20 03:20 WBC RBC 3.05 L Hgb 8.2 L Hct 25.8 L MCV MCH 27 L MCHC RDW 20.9 H Plt Count Seg Neuts % (Manual) Lymphocytes % (Manual) Seg Neutrophils # Man Lymphocytes # (Manual) Monocytes # (Manual) PT INR D-Dimer ABG pH ABG pO2 ABG HCO3 ABG O2 Saturation ABG Base Excess ABG Hemoglobin Oxyhemoglobin Sodium 133 L Potassium Chloride Carbon Dioxide BUN 24 H Creatinine Glucose 137 H POC Glucose 134 H Lactic Acid Calcium 7.4 L Phosphorus Magnesium AST ALT Alkaline Phosphatase Lactate Dehydrogenase Troponin T C-Reactive Protein NT-Pro-B Natriuret Pep Total Protein Albumin LDL Cholesterol Direct Vitamin B12 Urine WBC (Auto) Fluid Glucose Fluid Total Protein Vancomycin Trough Crossmatch 11/29/21 11/29/21 11/29/21 05:38 11:39 17:11 WBC RBC Hgb Hct MCV MCH MCHC RDW Plt Count Seg Neuts % (Manual) Lymphocytes % (Manual) Seg Neutrophils # Man Lymphocytes # (Manual) Monocytes # (Manual) PT INR D-Dimer ABG pH ABG pO2 ABG HCO3 ABG O2 Saturation ABG Base Excess ABG Hemoglobin Oxyhemoglobin Sodium Potassium Chloride Carbon Dioxide BUN Creatinine Glucose POC Glucose 117 H 143 H 124 H Lactic Acid Calcium Phosphorus Magnesium AST ALT Alkaline Phosphatase Lactate Dehydrogenase Troponin T C-Reactive Protein NT-Pro-B Natriuret Pep Total Protein Albumin LDL Cholesterol Direct Vitamin B12 Urine WBC (Auto) Fluid Glucose Fluid Total Protein Vancomycin Trough Crossmatch 11/29/21 11/30/21 11/30/21 20:15 05:40 05:40 WBC 12.6 H RBC 3.41 L Hgb 9.1 L Hct 28.9 L MCV MCH 27 L MCHC RDW 20.4 H Plt Count Seg Neuts % (Manual) Lymphocytes % (Manual) Seg Neutrophils # Man Lymphocytes # (Manual) Monocytes # (Manual) PT INR D-Dimer ABG pH ABG pO2 ABG HCO3 ABG O2 Saturation ABG Base Excess ABG Hemoglobin Oxyhemoglobin Sodium Potassium Chloride Carbon Dioxide BUN 24 H Creatinine Glucose 131 H POC Glucose Lactic Acid Calcium 7.6 L Phosphorus Magnesium AST ALT Alkaline Phosphatase Lactate Dehydrogenase Troponin T 0.045 H C-Reactive Protein NT-Pro-B Natriuret Pep Total Protein Albumin LDL Cholesterol Direct 25 L Vitamin B12 Urine WBC (Auto) Fluid Glucose Fluid Total Protein Vancomycin Trough Crossmatch 11/30/21 11/30/21 12/01/21 11:29 16:51 05:00 WBC RBC 2.97 L Hgb 8.0 L Hct 25.0 L MCV MCH 27 L MCHC RDW 20.8 H Plt Count Seg Neuts % (Manual) Lymphocytes % (Manual) Seg Neutrophils # Man Lymphocytes # (Manual) Monocytes # (Manual) PT INR D-Dimer ABG pH ABG pO2 ABG HCO3 ABG O2 Saturation ABG Base Excess ABG Hemoglobin Oxyhemoglobin Sodium Potassium Chloride Carbon Dioxide BUN Creatinine Glucose POC Glucose 123 H 114 H Lactic Acid Calcium Phosphorus Magnesium AST ALT Alkaline Phosphatase Lactate Dehydrogenase Troponin T C-Reactive Protein NT-Pro-B Natriuret Pep Total Protein Albumin LDL Cholesterol Direct Vitamin B12 Urine WBC (Auto) Fluid Glucose Fluid Total Protein Vancomycin Trough Crossmatch 12/01/21 12/01/21 12/01/21 05:00 05:25 11:54 WBC RBC Hgb Hct MCV MCH MCHC RDW Plt Count Seg Neuts % (Manual) Lymphocytes % (Manual) Seg Neutrophils # Man Lymphocytes # (Manual) Monocytes # (Manual) PT INR D-Dimer ABG pH ABG pO2 ABG HCO3 ABG O2 Saturation ABG Base Excess ABG Hemoglobin Oxyhemoglobin Sodium 136 L Potassium Chloride Carbon Dioxide BUN 24 H Creatinine Glucose 117 H POC Glucose 108 H 107 H Lactic Acid Calcium 7.5 L Phosphorus Magnesium 1.60 L AST ALT Alkaline Phosphatase Lactate Dehydrogenase Troponin T C-Reactive Protein NT-Pro-B Natriuret Pep Total Protein Albumin LDL Cholesterol Direct Vitamin B12 Urine WBC (Auto) Fluid Glucose Fluid Total Protein Vancomycin Trough Crossmatch 12/01/21 12/02/21 12/02/21 17:40 00:07 04:20 WBC RBC 2.92 L Hgb 7.7 L Hct 24.3 L MCV MCH 26 L MCHC RDW 20.5 H Plt Count Seg Neuts % (Manual) Lymphocytes % (Manual) Seg Neutrophils # Man Lymphocytes # (Manual) Monocytes # (Manual) PT INR D-Dimer ABG pH ABG pO2 ABG HCO3 ABG O2 Saturation ABG Base Excess ABG Hemoglobin Oxyhemoglobin Sodium Potassium Chloride Carbon Dioxide BUN Creatinine Glucose POC Glucose 123 H 110 H Lactic Acid Calcium Phosphorus Magnesium AST ALT Alkaline Phosphatase Lactate Dehydrogenase Troponin T C-Reactive Protein NT-Pro-B Natriuret Pep Total Protein Albumin LDL Cholesterol Direct Vitamin B12 Urine WBC (Auto) Fluid Glucose Fluid Total Protein Vancomycin Trough Crossmatch 12/02/21 12/02/21 12/02/21 04:20 11:17 18:20 WBC RBC Hgb Hct MCV MCH MCHC RDW Plt Count Seg Neuts % (Manual) Lymphocytes % (Manual) Seg Neutrophils # Man Lymphocytes # (Manual) Monocytes # (Manual) PT INR D-Dimer ABG pH ABG pO2 ABG HCO3 ABG O2 Saturation ABG Base Excess ABG Hemoglobin Oxyhemoglobin Sodium 135 L Potassium Chloride Carbon Dioxide BUN 26 H Creatinine Glucose 121 H POC Glucose 117 H 113 H Lactic Acid Calcium 7.4 L Phosphorus Magnesium AST ALT Alkaline Phosphatase Lactate Dehydrogenase Troponin T C-Reactive Protein NT-Pro-B Natriuret Pep Total Protein Albumin LDL Cholesterol Direct Vitamin B12 Urine WBC (Auto) Fluid Glucose Fluid Total Protein Vancomycin Trough Crossmatch 12/03/21 12/03/21 12/03/21 00:12 04:00 04:00 WBC RBC 2.99 L Hgb 7.8 L Hct 24.6 L MCV MCH 26 L MCHC RDW 20.2 H Plt Count Seg Neuts % (Manual) Lymphocytes % (Manual) Seg Neutrophils # Man Lymphocytes # (Manual) Monocytes # (Manual) PT INR D-Dimer ABG pH ABG pO2 ABG HCO3 ABG O2 Saturation ABG Base Excess ABG Hemoglobin Oxyhemoglobin Sodium 136 L Potassium Chloride Carbon Dioxide BUN 27 H Creatinine Glucose 133 H POC Glucose 121 H Lactic Acid Calcium 7.5 L Phosphorus Magnesium AST ALT Alkaline Phosphatase Lactate Dehydrogenase Troponin T C-Reactive Protein NT-Pro-B Natriuret Pep Total Protein Albumin LDL Cholesterol Direct Vitamin B12 Urine WBC (Auto) Fluid Glucose Fluid Total Protein Vancomycin Trough Crossmatch 12/03/21 12/03/21 12/03/21 06:30 11:13 16:00 WBC RBC Hgb Hct MCV MCH MCHC RDW Plt Count Seg Neuts % (Manual) Lymphocytes % (Manual) Seg Neutrophils # Man Lymphocytes # (Manual) Monocytes # (Manual) PT INR D-Dimer ABG pH ABG pO2 ABG HCO3 ABG O2 Saturation ABG Base Excess ABG Hemoglobin Oxyhemoglobin Sodium Potassium Chloride Carbon Dioxide BUN Creatinine Glucose POC Glucose 129 H 125 H 125 H Lactic Acid Calcium Phosphorus Magnesium AST ALT Alkaline Phosphatase Lactate Dehydrogenase Troponin T C-Reactive Protein NT-Pro-B Natriuret Pep Total Protein Albumin LDL Cholesterol Direct Vitamin B12 Urine WBC (Auto) Fluid Glucose Fluid Total Protein Vancomycin Trough Crossmatch 12/03/21 12/04/21 12/04/21 23:32 04:00 05:36 WBC RBC Hgb Hct MCV MCH MCHC RDW Plt Count Seg Neuts % (Manual) Lymphocytes % (Manual) Seg Neutrophils # Man Lymphocytes # (Manual) Monocytes # (Manual) PT INR D-Dimer ABG pH ABG pO2 ABG HCO3 ABG O2 Saturation ABG Base Excess ABG Hemoglobin Oxyhemoglobin Sodium Potassium 3.5 L Chloride Carbon Dioxide BUN 26 H Creatinine 0.5 L Glucose 151 H POC Glucose 133 H 142 H Lactic Acid Calcium 8.3 L Phosphorus Magnesium AST ALT Alkaline Phosphatase Lactate Dehydrogenase Troponin T C-Reactive Protein NT-Pro-B Natriuret Pep Total Protein Albumin LDL Cholesterol Direct Vitamin B12 Urine WBC (Auto) Fluid Glucose Fluid Total Protein Vancomycin Trough Crossmatch 12/04/21 12/04/21 12/05/21 11:24 15:58 04:36 WBC RBC Hgb Hct MCV MCH MCHC RDW Plt Count Seg Neuts % (Manual) Lymphocytes % (Manual) Seg Neutrophils # Man Lymphocytes # (Manual) Monocytes # (Manual) PT INR D-Dimer ABG pH ABG pO2 ABG HCO3 ABG O2 Saturation ABG Base Excess ABG Hemoglobin Oxyhemoglobin Sodium Potassium Chloride Carbon Dioxide BUN 21 H Creatinine 0.5 L Glucose 119 H POC Glucose 130 H 111 H Lactic Acid Calcium 8.3 L Phosphorus Magnesium AST ALT Alkaline Phosphatase Lactate Dehydrogenase Troponin T C-Reactive Protein NT-Pro-B Natriuret Pep Total Protein Albumin LDL Cholesterol Direct Vitamin B12 Urine WBC (Auto) Fluid Glucose Fluid Total Protein Vancomycin Trough Crossmatch 12/05/21 12/05/21 12/05/21 05:15 10:40 11:12 WBC RBC 2.98 L Hgb 8.1 L Hct 24.6 L MCV MCH 27 L MCHC RDW 20.8 H Plt Count Seg Neuts % (Manual) Lymphocytes % (Manual) Seg Neutrophils # Man Lymphocytes # (Manual) Monocytes # (Manual) PT INR D-Dimer ABG pH ABG pO2 ABG HCO3 ABG O2 Saturation ABG Base Excess ABG Hemoglobin Oxyhemoglobin Sodium Potassium Chloride Carbon Dioxide BUN Creatinine Glucose POC Glucose 107 H 110 H Lactic Acid Calcium Phosphorus Magnesium AST ALT Alkaline Phosphatase Lactate Dehydrogenase Troponin T C-Reactive Protein NT-Pro-B Natriuret Pep Total Protein Albumin LDL Cholesterol Direct Vitamin B12 Urine WBC (Auto) Fluid Glucose Fluid Total Protein Vancomycin Trough Crossmatch 12/05/21 12/06/21 12/06/21 23:39 04:25 04:25 WBC RBC 2.95 L Hgb 7.9 L Hct 24.7 L MCV MCH 27 L MCHC RDW 20.9 H Plt Count Seg Neuts % (Manual) Lymphocytes % (Manual) Seg Neutrophils # Man Lymphocytes # (Manual) Monocytes # (Manual) PT INR D-Dimer ABG pH ABG pO2 ABG HCO3 ABG O2 Saturation ABG Base Excess ABG Hemoglobin Oxyhemoglobin Sodium Potassium Chloride Carbon Dioxide BUN 22 H Creatinine 0.5 L Glucose 136 H POC Glucose 118 H Lactic Acid Calcium 8.2 L Phosphorus Magnesium AST ALT Alkaline Phosphatase Lactate Dehydrogenase Troponin T C-Reactive Protein NT-Pro-B Natriuret Pep Total Protein Albumin LDL Cholesterol Direct Vitamin B12 Urine WBC (Auto) Fluid Glucose Fluid Total Protein Vancomycin Trough Crossmatch 12/06/21 12/06/21 12/07/21 05:28 11:27 04:00 WBC RBC Hgb 7.2 L Hct 21.8 L MCV MCH MCHC RDW Plt Count Seg Neuts % (Manual) Lymphocytes % (Manual) Seg Neutrophils # Man Lymphocytes # (Manual) Monocytes # (Manual) PT INR D-Dimer ABG pH ABG pO2 ABG HCO3 ABG O2 Saturation ABG Base Excess ABG Hemoglobin Oxyhemoglobin Sodium Potassium Chloride Carbon Dioxide BUN Creatinine Glucose POC Glucose 142 H 126 H Lactic Acid Calcium Phosphorus Magnesium AST ALT Alkaline Phosphatase Lactate Dehydrogenase Troponin T C-Reactive Protein NT-Pro-B Natriuret Pep Total Protein Albumin LDL Cholesterol Direct Vitamin B12 Urine WBC (Auto) Fluid Glucose Fluid Total Protein Vancomycin Trough Crossmatch 12/07/21 12/07/21 12/07/21 04:00 05:30 11:12 WBC RBC Hgb Hct MCV MCH MCHC RDW Plt Count Seg Neuts % (Manual) Lymphocytes % (Manual) Seg Neutrophils # Man Lymphocytes # (Manual) Monocytes # (Manual) PT INR D-Dimer ABG pH ABG pO2 ABG HCO3 ABG O2 Saturation ABG Base Excess ABG Hemoglobin Oxyhemoglobin Sodium Potassium Chloride Carbon Dioxide BUN 22 H Creatinine Glucose 119 H POC Glucose 121 H 124 H Lactic Acid Calcium 8.0 L Phosphorus Magnesium AST ALT Alkaline Phosphatase Lactate Dehydrogenase Troponin T C-Reactive Protein NT-Pro-B Natriuret Pep Total Protein Albumin LDL Cholesterol Direct Vitamin B12 Urine WBC (Auto) Fluid Glucose Fluid Total Protein Vancomycin Trough Crossmatch 12/08/21 12/08/21 12/08/21 04:00 04:00 05:39 WBC RBC 2.81 L Hgb 7.7 L Hct 23.5 L MCV MCH MCHC RDW 21.2 H Plt Count Seg Neuts % (Manual) Lymphocytes % (Manual) Seg Neutrophils # Man Lymphocytes # (Manual) Monocytes # (Manual) PT INR D-Dimer ABG pH ABG pO2 ABG HCO3 ABG O2 Saturation ABG Base Excess ABG Hemoglobin Oxyhemoglobin Sodium 135 L Potassium Chloride Carbon Dioxide BUN 23 H Creatinine Glucose 109 H POC Glucose 112 H Lactic Acid Calcium Phosphorus Magnesium AST ALT Alkaline Phosphatase Lactate Dehydrogenase Troponin T C-Reactive Protein NT-Pro-B Natriuret Pep Total Protein Albumin LDL Cholesterol Direct Vitamin B12 Urine WBC (Auto) Fluid Glucose Fluid Total Protein Vancomycin Trough Crossmatch 12/08/21 12/09/21 12/09/21 11:03 04:20 04:20 WBC RBC 2.67 L Hgb 7.6 L Hct 22.1 L MCV MCH MCHC RDW 20.8 H Plt Count Seg Neuts % (Manual) Lymphocytes % (Manual) Seg Neutrophils # Man Lymphocytes # (Manual) Monocytes # (Manual) PT INR D-Dimer ABG pH ABG pO2 ABG HCO3 ABG O2 Saturation ABG Base Excess ABG Hemoglobin Oxyhemoglobin Sodium 135 L Potassium Chloride 97.8 L Carbon Dioxide BUN 26 H Creatinine Glucose 119 H POC Glucose 108 H Lactic Acid Calcium 7.7 L Phosphorus Magnesium AST ALT Alkaline Phosphatase Lactate Dehydrogenase Troponin T C-Reactive Protein NT-Pro-B Natriuret Pep Total Protein Albumin LDL Cholesterol Direct Vitamin B12 Urine WBC (Auto) Fluid Glucose Fluid Total Protein Vancomycin Trough Crossmatch 12/09/21 12/10/21 12/10/21 11:26 04:33 11:12 WBC RBC Hgb Hct MCV MCH MCHC RDW Plt Count Seg Neuts % (Manual) Lymphocytes % (Manual) Seg Neutrophils # Man Lymphocytes # (Manual) Monocytes # (Manual) PT INR D-Dimer ABG pH ABG pO2 ABG HCO3 ABG O2 Saturation ABG Base Excess ABG Hemoglobin Oxyhemoglobin Sodium 136 L Potassium Chloride Carbon Dioxide BUN 27 H Creatinine Glucose 117 H POC Glucose 110 H 117 H Lactic Acid Calcium 8.2 L Phosphorus Magnesium AST ALT Alkaline Phosphatase Lactate Dehydrogenase Troponin T C-Reactive Protein NT-Pro-B Natriuret Pep Total Protein Albumin LDL Cholesterol Direct Vitamin B12 Urine WBC (Auto) Fluid Glucose Fluid Total Protein Vancomycin Trough Crossmatch 12/10/21 12/10/21 12/11/21 16:02 23:31 04:35 WBC RBC 2.57 L Hgb 7.0 L Hct 21.4 L MCV MCH 27 L MCHC RDW 21.1 H Plt Count Seg Neuts % (Manual) Lymphocytes % (Manual) Seg Neutrophils # Man Lymphocytes # (Manual) Monocytes # (Manual) PT INR D-Dimer ABG pH ABG pO2 ABG HCO3 ABG O2 Saturation ABG Base Excess ABG Hemoglobin Oxyhemoglobin Sodium Potassium Chloride Carbon Dioxide BUN Creatinine Glucose POC Glucose 137 H 111 H Lactic Acid Calcium Phosphorus Magnesium AST ALT Alkaline Phosphatase Lactate Dehydrogenase Troponin T C-Reactive Protein NT-Pro-B Natriuret Pep Total Protein Albumin LDL Cholesterol Direct Vitamin B12 Urine WBC (Auto) Fluid Glucose Fluid Total Protein Vancomycin Trough Crossmatch 12/11/21 12/11/21 12/11/21 04:35 12:46 16:07 WBC RBC Hgb Hct MCV MCH MCHC RDW Plt Count Seg Neuts % (Manual) Lymphocytes % (Manual) Seg Neutrophils # Man Lymphocytes # (Manual) Monocytes # (Manual) PT INR D-Dimer ABG pH ABG pO2 ABG HCO3 ABG O2 Saturation ABG Base Excess ABG Hemoglobin Oxyhemoglobin Sodium 136 L Potassium Chloride Carbon Dioxide BUN 27 H Creatinine Glucose 112 H POC Glucose 115 H 111 H Lactic Acid Calcium 7.6 L Phosphorus Magnesium AST ALT Alkaline Phosphatase Lactate Dehydrogenase Troponin T C-Reactive Protein NT-Pro-B Natriuret Pep Total Protein Albumin LDL Cholesterol Direct Vitamin B12 Urine WBC (Auto) Fluid Glucose Fluid Total Protein Vancomycin Trough Crossmatch 12/11/21 12/12/21 12/12/21 23:42 04:30 04:30 WBC RBC 2.60 L Hgb 7.1 L Hct 21.5 L MCV MCH 27 L MCHC RDW 20.3 H Plt Count Seg Neuts % (Manual) Lymphocytes % (Manual) Seg Neutrophils # Man Lymphocytes # (Manual) Monocytes # (Manual) PT INR D-Dimer ABG pH ABG pO2 ABG HCO3 ABG O2 Saturation ABG Base Excess ABG Hemoglobin Oxyhemoglobin Sodium 135 L Potassium Chloride 97.9 L Carbon Dioxide BUN 26 H Creatinine 0.5 L Glucose 138 H POC Glucose 115 H Lactic Acid Calcium 8.2 L Phosphorus Magnesium AST ALT Alkaline Phosphatase Lactate Dehydrogenase Troponin T C-Reactive Protein NT-Pro-B Natriuret Pep Total Protein Albumin LDL Cholesterol Direct Vitamin B12 Urine WBC (Auto) Fluid Glucose Fluid Total Protein Vancomycin Trough Crossmatch 12/12/21 12/12/21 12/12/21 04:30 05:10 11:51 WBC RBC Hgb Hct MCV MCH MCHC RDW Plt Count Seg Neuts % (Manual) Lymphocytes % (Manual) Seg Neutrophils # Man Lymphocytes # (Manual) Monocytes # (Manual) PT INR D-Dimer ABG pH ABG pO2 ABG HCO3 ABG O2 Saturation ABG Base Excess ABG Hemoglobin Oxyhemoglobin Sodium Potassium Chloride Carbon Dioxide BUN Creatinine Glucose POC Glucose 119 H 119 H Lactic Acid Calcium Phosphorus Magnesium AST ALT Alkaline Phosphatase Lactate Dehydrogenase Troponin T C-Reactive Protein NT-Pro-B Natriuret Pep Total Protein Albumin LDL Cholesterol Direct Vitamin B12 Urine WBC (Auto) Fluid Glucose Fluid Total Protein Vancomycin Trough Crossmatch See Detail 12/13/21 12/13/21 12/13/21 00:52 04:00 04:00 WBC RBC 2.73 L Hgb 7.4 L Hct 22.8 L MCV MCH 27 L MCHC RDW 20.5 H Plt Count Seg Neuts % (Manual) Lymphocytes % (Manual) Seg Neutrophils # Man Lymphocytes # (Manual) Monocytes # (Manual) PT INR D-Dimer ABG pH ABG pO2 ABG HCO3 ABG O2 Saturation ABG Base Excess ABG Hemoglobin Oxyhemoglobin Sodium 134 L Potassium Chloride 96.7 L Carbon Dioxide BUN 23 H Creatinine 0.5 L Glucose 131 H POC Glucose 131 H Lactic Acid Calcium 8.1 L Phosphorus Magnesium AST ALT Alkaline Phosphatase Lactate Dehydrogenase Troponin T C-Reactive Protein NT-Pro-B Natriuret Pep Total Protein Albumin LDL Cholesterol Direct Vitamin B12 Urine WBC (Auto) Fluid Glucose Fluid Total Protein Vancomycin Trough Crossmatch 12/13/21 12/13/21 12/13/21 05:23 12:11 17:18 WBC RBC Hgb Hct MCV MCH MCHC RDW Plt Count Seg Neuts % (Manual) Lymphocytes % (Manual) Seg Neutrophils # Man Lymphocytes # (Manual) Monocytes # (Manual) PT INR D-Dimer ABG pH ABG pO2 ABG HCO3 ABG O2 Saturation ABG Base Excess ABG Hemoglobin Oxyhemoglobin Sodium Potassium Chloride Carbon Dioxide BUN Creatinine Glucose POC Glucose 121 H 143 H 148 H Lactic Acid Calcium Phosphorus Magnesium AST ALT Alkaline Phosphatase Lactate Dehydrogenase Troponin T C-Reactive Protein NT-Pro-B Natriuret Pep Total Protein Albumin LDL Cholesterol Direct Vitamin B12 Urine WBC (Auto) Fluid Glucose Fluid Total Protein Vancomycin Trough Crossmatch 12/14/21 12/14/21 12/14/21 00:54 04:20 04:20 WBC RBC 2.39 L Hgb 6.5 L Hct 20.3 L MCV MCH 27 L MCHC RDW 20.3 H Plt Count Seg Neuts % (Manual) Lymphocytes % (Manual) Seg Neutrophils # Man Lymphocytes # (Manual) Monocytes # (Manual) PT INR D-Dimer ABG pH ABG pO2 ABG HCO3 ABG O2 Saturation ABG Base Excess ABG Hemoglobin Oxyhemoglobin Sodium 130 L Potassium Chloride 93.5 L Carbon Dioxide BUN 25 H Creatinine Glucose 123 H POC Glucose 123 H Lactic Acid Calcium 8.0 L Phosphorus Magnesium AST ALT Alkaline Phosphatase Lactate Dehydrogenase Troponin T C-Reactive Protein NT-Pro-B Natriuret Pep Total Protein Albumin LDL Cholesterol Direct Vitamin B12 Urine WBC (Auto) Fluid Glucose Fluid Total Protein Vancomycin Trough Crossmatch 12/14/21 12/14/21 12/14/21 05:06 08:17 10:30 WBC RBC Hgb Hct MCV MCH MCHC RDW Plt Count Seg Neuts % (Manual) Lymphocytes % (Manual) Seg Neutrophils # Man Lymphocytes # (Manual) Monocytes # (Manual) PT INR D-Dimer ABG pH ABG pO2 ABG HCO3 ABG O2 Saturation ABG Base Excess ABG Hemoglobin Oxyhemoglobin Sodium Potassium Chloride Carbon Dioxide BUN Creatinine Glucose POC Glucose 131 H 119 H Lactic Acid Calcium Phosphorus Magnesium AST ALT Alkaline Phosphatase Lactate Dehydrogenase Troponin T C-Reactive Protein NT-Pro-B Natriuret Pep Total Protein Albumin LDL Cholesterol Direct Vitamin B12 Urine WBC (Auto) Fluid Glucose Fluid Total Protein Vancomycin Trough Crossmatch See Detail 12/14/21 12/14/21 12/14/21 12:15 16:37 23:27 WBC RBC Hgb Hct MCV MCH MCHC RDW Plt Count Seg Neuts % (Manual) Lymphocytes % (Manual) Seg Neutrophils # Man Lymphocytes # (Manual) Monocytes # (Manual) PT INR D-Dimer ABG pH ABG pO2 ABG HCO3 ABG O2 Saturation ABG Base Excess ABG Hemoglobin Oxyhemoglobin Sodium Potassium Chloride Carbon Dioxide BUN Creatinine Glucose POC Glucose 147 H 141 H 130 H Lactic Acid Calcium Phosphorus Magnesium AST ALT Alkaline Phosphatase Lactate Dehydrogenase Troponin T C-Reactive Protein NT-Pro-B Natriuret Pep Total Protein Albumin LDL Cholesterol Direct Vitamin B12 Urine WBC (Auto) Fluid Glucose Fluid Total Protein Vancomycin Trough Crossmatch 0212/15/21 12/15/21 05:00 07:00 07:00 WBC 12.3 H RBC 3.27 L Hgb 8.8 L Hct 27.5 L D MCV MCH 27 L MCHC RDW 19.0 H Plt Count Seg Neuts % (Manual) Lymphocytes % (Manual) Seg Neutrophils # Man Lymphocytes # (Manual) Monocytes # (Manual) PT INR D-Dimer ABG pH ABG pO2 ABG HCO3 ABG O2 Saturation ABG Base Excess ABG Hemoglobin Oxyhemoglobin Sodium 134 L Potassium Chloride 95.7 L Carbon Dioxide BUN 28 H Creatinine Glucose 129 H POC Glucose 129 H Lactic Acid Calcium 8.2 L Phosphorus Magnesium AST ALT Alkaline Phosphatase Lactate Dehydrogenase Troponin T C-Reactive Protein NT-Pro-B Natriuret Pep Total Protein Albumin LDL Cholesterol Direct Vitamin B12 Urine WBC (Auto) Fluid Glucose Fluid Total Protein Vancomycin Trough Crossmatch 12/15/21 12/15/21 12/15/21 11:18 16:00 23:39 WBC RBC Hgb Hct MCV MCH MCHC RDW Plt Count Seg Neuts % (Manual) Lymphocytes % (Manual) Seg Neutrophils # Man Lymphocytes # (Manual) Monocytes # (Manual) PT INR D-Dimer ABG pH ABG pO2 ABG HCO3 ABG O2 Saturation ABG Base Excess ABG Hemoglobin Oxyhemoglobin Sodium Potassium Chloride Carbon Dioxide BUN Creatinine Glucose POC Glucose 139 H 137 H 146 H Lactic Acid Calcium Phosphorus Magnesium AST ALT Alkaline Phosphatase Lactate Dehydrogenase Troponin T C-Reactive Protein NT-Pro-B Natriuret Pep Total Protein Albumin LDL Cholesterol Direct Vitamin B12 Urine WBC (Auto) Fluid Glucose Fluid Total Protein Vancomycin Trough Crossmatch 12/16/21 12/16/21 12/16/21 05:24 10:21 10:21 WBC 15.3 H RBC 3.24 L Hgb 8.9 L Hct 27.7 L MCV MCH MCHC RDW 19.0 H Plt Count Seg Neuts % (Manual) Lymphocytes % (Manual) Seg Neutrophils # Man Lymphocytes # (Manual) Monocytes # (Manual) PT INR D-Dimer ABG pH ABG pO2 ABG HCO3 ABG O2 Saturation ABG Base Excess ABG Hemoglobin Oxyhemoglobin Sodium 131 L Potassium 3.5 L Chloride 92.7 L Carbon Dioxide BUN 36 H Creatinine Glucose 160 H POC Glucose 121 H Lactic Acid Calcium Phosphorus Magnesium 1.60 L AST ALT Alkaline Phosphatase Lactate Dehydrogenase Troponin T C-Reactive Protein NT-Pro-B Natriuret Pep Total Protein Albumin LDL Cholesterol Direct Vitamin B12 Urine WBC (Auto) Fluid Glucose Fluid Total Protein Vancomycin Trough Crossmatch 12/16/21 12/16/21 12/16/21 11:21 18:28 20:52 WBC RBC Hgb Hct MCV MCH MCHC RDW Plt Count Seg Neuts % (Manual) Lymphocytes % (Manual) Seg Neutrophils # Man Lymphocytes # (Manual) Monocytes # (Manual) PT INR D-Dimer ABG pH 7.479 H ABG pO2 79.3 L ABG HCO3 27.3 H ABG O2 Saturation ABG Base Excess 3.6 H ABG Hemoglobin 9.1 L Oxyhemoglobin 94.9 L Sodium Potassium Chloride Carbon Dioxide BUN Creatinine Glucose POC Glucose 153 H 132 H Lactic Acid Calcium Phosphorus Magnesium AST ALT Alkaline Phosphatase Lactate Dehydrogenase Troponin T C-Reactive Protein NT-Pro-B Natriuret Pep Total Protein Albumin LDL Cholesterol Direct Vitamin B12 Urine WBC (Auto) Fluid Glucose Fluid Total Protein Vancomycin Trough Crossmatch 12/16/21 12/17/21 12/17/21 23:30 04:25 04:25 WBC 12.3 H RBC 2.16 L Hgb 6.0 L Hct 18.1 L* D MCV MCH MCHC RDW 19.4 H Plt Count Seg Neuts % (Manual) Lymphocytes % (Manual) Seg Neutrophils # Man Lymphocytes # (Manual) Monocytes # (Manual) PT INR D-Dimer ABG pH ABG pO2 ABG HCO3 ABG O2 Saturation ABG Base Excess ABG Hemoglobin Oxyhemoglobin Sodium 132 L Potassium 3.2 L Chloride 112.0 H Carbon Dioxide BUN 32 H Creatinine Glucose 122 H POC Glucose 137 H Lactic Acid Calcium 6.8 L D Phosphorus Magnesium AST ALT Alkaline Phosphatase Lactate Dehydrogenase Troponin T C-Reactive Protein NT-Pro-B Natriuret Pep Total Protein Albumin LDL Cholesterol Direct Vitamin B12 Urine WBC (Auto) Fluid Glucose Fluid Total Protein Vancomycin Trough Crossmatch 12/17/21 12/17/21 12/17/21 05:30 11:49 14:45 WBC RBC Hgb 9.7 L D Hct MCV MCH MCHC RDW Plt Count Seg Neuts % (Manual) Lymphocytes % (Manual) Seg Neutrophils # Man Lymphocytes # (Manual) Monocytes # (Manual) PT INR D-Dimer ABG pH ABG pO2 ABG HCO3 ABG O2 Saturation ABG Base Excess ABG Hemoglobin Oxyhemoglobin Sodium Potassium Chloride Carbon Dioxide BUN Creatinine Glucose POC Glucose 137 H 143 H Lactic Acid Calcium Phosphorus Magnesium AST ALT Alkaline Phosphatase Lactate Dehydrogenase Troponin T C-Reactive Protein NT-Pro-B Natriuret Pep Total Protein Albumin LDL Cholesterol Direct Vitamin B12 Urine WBC (Auto) Fluid Glucose Fluid Total Protein Vancomycin Trough Crossmatch 12/17/21 12/18/21 12/18/21 17:01 05:04 05:04 WBC 13.8 H RBC 3.44 L Hgb 9.9 L Hct 28.8 L MCV MCH MCHC RDW 18.1 H Plt Count Seg Neuts % (Manual) Lymphocytes % (Manual) Seg Neutrophils # Man Lymphocytes # (Manual) Monocytes # (Manual) PT INR D-Dimer ABG pH ABG pO2 ABG HCO3 ABG O2 Saturation ABG Base Excess ABG Hemoglobin Oxyhemoglobin Sodium 132 L Potassium Chloride 97.4 L Carbon Dioxide BUN 38 H Creatinine Glucose 134 H POC Glucose 132 H Lactic Acid Calcium Phosphorus Magnesium AST ALT Alkaline Phosphatase Lactate Dehydrogenase Troponin T C-Reactive Protein NT-Pro-B Natriuret Pep Total Protein Albumin LDL Cholesterol Direct Vitamin B12 Urine WBC (Auto) Fluid Glucose Fluid Total Protein Vancomycin Trough Crossmatch 12/18/21 12/18/21 12/18/21 05:28 10:57 16:27 WBC RBC Hgb Hct MCV MCH MCHC RDW Plt Count Seg Neuts % (Manual) Lymphocytes % (Manual) Seg Neutrophils # Man Lymphocytes # (Manual) Monocytes # (Manual) PT INR D-Dimer ABG pH ABG pO2 ABG HCO3 ABG O2 Saturation ABG Base Excess ABG Hemoglobin Oxyhemoglobin Sodium Potassium Chloride Carbon Dioxide BUN Creatinine Glucose POC Glucose 118 H 132 H 130 H Lactic Acid Calcium Phosphorus Magnesium AST ALT Alkaline Phosphatase Lactate Dehydrogenase Troponin T C-Reactive Protein NT-Pro-B Natriuret Pep Total Protein Albumin LDL Cholesterol Direct Vitamin B12 Urine WBC (Auto) Fluid Glucose Fluid Total Protein Vancomycin Trough Crossmatch 12/19/21 12/19/21 12/19/21 00:02 04:41 04:41 WBC 16.0 H RBC 3.45 L Hgb 9.7 L Hct 29.1 L MCV MCH MCHC RDW 17.8 H Plt Count Seg Neuts % (Manual) Lymphocytes % (Manual) Seg Neutrophils # Man Lymphocytes # (Manual) Monocytes # (Manual) PT INR D-Dimer ABG pH ABG pO2 ABG HCO3 ABG O2 Saturation ABG Base Excess ABG Hemoglobin Oxyhemoglobin Sodium 133 L Potassium Chloride 97.9 L Carbon Dioxide BUN 36 H Creatinine 0.5 L Glucose 126 H POC Glucose 127 H Lactic Acid Calcium 8.3 L Phosphorus Magnesium AST ALT Alkaline Phosphatase Lactate Dehydrogenase Troponin T C-Reactive Protein NT-Pro-B Natriuret Pep Total Protein Albumin LDL Cholesterol Direct Vitamin B12 Urine WBC (Auto) Fluid Glucose Fluid Total Protein Vancomycin Trough Crossmatch 12/19/21 12/19/21 12/19/21 05:26 12:20 16:43 WBC RBC Hgb Hct MCV MCH MCHC RDW Plt Count Seg Neuts % (Manual) Lymphocytes % (Manual) Seg Neutrophils # Man Lymphocytes # (Manual) Monocytes # (Manual) PT INR D-Dimer ABG pH ABG pO2 ABG HCO3 ABG O2 Saturation ABG Base Excess ABG Hemoglobin Oxyhemoglobin Sodium Potassium Chloride Carbon Dioxide BUN Creatinine Glucose POC Glucose 119 H 145 H 126 H Lactic Acid Calcium Phosphorus Magnesium AST ALT Alkaline Phosphatase Lactate Dehydrogenase Troponin T C-Reactive Protein NT-Pro-B Natriuret Pep Total Protein Albumin LDL Cholesterol Direct Vitamin B12 Urine WBC (Auto) Fluid Glucose Fluid Total Protein Vancomycin Trough Crossmatch 12/19/21 12/20/21 12/20/21 23:30 04:54 04:54 WBC 12.3 H RBC 3.54 L Hgb 10.0 L Hct 29.5 L MCV MCH MCHC RDW 17.8 H Plt Count Seg Neuts % (Manual) 88.0 H Lymphocytes % (Manual) 6.0 L Seg Neutrophils # Man 10.8 H Lymphocytes # (Manual) 0.7 L Monocytes # (Manual) PT INR D-Dimer ABG pH ABG pO2 ABG HCO3 ABG O2 Saturation ABG Base Excess ABG Hemoglobin Oxyhemoglobin Sodium 131 L Potassium Chloride 96.2 L Carbon Dioxide BUN 36 H Creatinine 0.5 L Glucose 130 H POC Glucose 117 H Lactic Acid Calcium Phosphorus Magnesium AST ALT Alkaline Phosphatase Lactate Dehydrogenase Troponin T C-Reactive Protein NT-Pro-B Natriuret Pep Total Protein Albumin LDL Cholesterol Direct Vitamin B12 Urine WBC (Auto) Fluid Glucose Fluid Total Protein Vancomycin Trough Crossmatch 12/20/21 12/20/21 12/20/21 05:20 11:51 17:30 WBC RBC Hgb Hct MCV MCH MCHC RDW Plt Count Seg Neuts % (Manual) Lymphocytes % (Manual) Seg Neutrophils # Man Lymphocytes # (Manual) Monocytes # (Manual) PT INR D-Dimer ABG pH ABG pO2 ABG HCO3 ABG O2 Saturation ABG Base Excess ABG Hemoglobin Oxyhemoglobin Sodium Potassium Chloride Carbon Dioxide BUN Creatinine Glucose POC Glucose 126 H 119 H 127 H Lactic Acid Calcium Phosphorus Magnesium AST ALT Alkaline Phosphatase Lactate Dehydrogenase Troponin T C-Reactive Protein NT-Pro-B Natriuret Pep Total Protein Albumin LDL Cholesterol Direct Vitamin B12 Urine WBC (Auto) Fluid Glucose Fluid Total Protein Vancomycin Trough Crossmatch 12/21/21 12/21/21 12/21/21 00:45 04:21 04:21 WBC RBC 3.47 L Hgb 9.4 L Hct 29.2 L MCV MCH 27 L MCHC RDW 18.1 H Plt Count Seg Neuts % (Manual) Lymphocytes % (Manual) Seg Neutrophils # Man Lymphocytes # (Manual) Monocytes # (Manual) PT INR D-Dimer ABG pH ABG pO2 ABG HCO3 ABG O2 Saturation ABG Base Excess ABG Hemoglobin Oxyhemoglobin Sodium 134 L Potassium Chloride Carbon Dioxide BUN 35 H Creatinine 0.5 L Glucose 122 H POC Glucose 125 H Lactic Acid Calcium 8.2 L Phosphorus Magnesium AST ALT Alkaline Phosphatase Lactate Dehydrogenase Troponin T C-Reactive Protein NT-Pro-B Natriuret Pep Total Protein Albumin LDL Cholesterol Direct Vitamin B12 Urine WBC (Auto) Fluid Glucose Fluid Total Protein Vancomycin Trough Crossmatch 12/21/21 12/21/21 12/21/21 05:38 11:29 16:16 WBC RBC Hgb Hct MCV MCH MCHC RDW Plt Count Seg Neuts % (Manual) Lymphocytes % (Manual) Seg Neutrophils # Man Lymphocytes # (Manual) Monocytes # (Manual) PT INR D-Dimer ABG pH ABG pO2 ABG HCO3 ABG O2 Saturation ABG Base Excess ABG Hemoglobin Oxyhemoglobin Sodium Potassium Chloride Carbon Dioxide BUN Creatinine Glucose POC Glucose 127 H 121 H 113 H Lactic Acid Calcium Phosphorus Magnesium AST ALT Alkaline Phosphatase Lactate Dehydrogenase Troponin T C-Reactive Protein NT-Pro-B Natriuret Pep Total Protein Albumin LDL Cholesterol Direct Vitamin B12 Urine WBC (Auto) Fluid Glucose Fluid Total Protein Vancomycin Trough Crossmatch 12/22/21 12/22/21 12/23/21 04:58 04:58 06:40 WBC 11.5 H RBC 3.43 L Hgb 9.8 L Hct 28.7 L MCV MCH MCHC RDW 18.5 H 17.9 H Plt Count Seg Neuts % (Manual) Lymphocytes % (Manual) Seg Neutrophils # Man Lymphocytes # (Manual) Monocytes # (Manual) PT INR D-Dimer ABG pH ABG pO2 ABG HCO3 ABG O2 Saturation ABG Base Excess ABG Hemoglobin Oxyhemoglobin Sodium 130 L Potassium Chloride 97.8 L Carbon Dioxide BUN 31 H Creatinine 0.5 L Glucose 122 H POC Glucose Lactic Acid Calcium 7.9 L Phosphorus Magnesium AST ALT Alkaline Phosphatase Lactate Dehydrogenase Troponin T C-Reactive Protein NT-Pro-B Natriuret Pep Total Protein Albumin LDL Cholesterol Direct Vitamin B12 Urine WBC (Auto) Fluid Glucose Fluid Total Protein Vancomycin Trough Crossmatch 12/23/21 12/23/21 12/24/21 06:40 23:25 04:24 WBC 11.7 H RBC Hgb 9.8 L Hct MCV MCH 26 L MCHC RDW 18.1 H Plt Count Seg Neuts % (Manual) Lymphocytes % (Manual) Seg Neutrophils # Man Lymphocytes # (Manual) Monocytes # (Manual) PT INR D-Dimer ABG pH ABG pO2 ABG HCO3 ABG O2 Saturation ABG Base Excess ABG Hemoglobin Oxyhemoglobin Sodium 136 L Potassium Chloride Carbon Dioxide BUN 27 H Creatinine 0.4 L Glucose 107 H POC Glucose 110 H Lactic Acid Calcium 8.1 L Phosphorus Magnesium AST ALT Alkaline Phosphatase Lactate Dehydrogenase Troponin T C-Reactive Protein NT-Pro-B Natriuret Pep Total Protein Albumin LDL Cholesterol Direct Vitamin B12 Urine WBC (Auto) Fluid Glucose Fluid Total Protein Vancomycin Trough Crossmatch 12/24/21 12/24/21 12/24/21 04:24 11:08 15:45 WBC RBC Hgb Hct MCV MCH MCHC RDW Plt Count Seg Neuts % (Manual) Lymphocytes % (Manual) Seg Neutrophils # Man Lymphocytes # (Manual) Monocytes # (Manual) PT INR D-Dimer ABG pH ABG pO2 ABG HCO3 ABG O2 Saturation ABG Base Excess ABG Hemoglobin Oxyhemoglobin Sodium 132 L Potassium Chloride Carbon Dioxide BUN 27 H Creatinine 0.3 L Glucose 108 H POC Glucose 116 H 107 H Lactic Acid Calcium Phosphorus Magnesium AST ALT Alkaline Phosphatase Lactate Dehydrogenase Troponin T C-Reactive Protein NT-Pro-B Natriuret Pep Total Protein Albumin LDL Cholesterol Direct Vitamin B12 Urine WBC (Auto) Fluid Glucose Fluid Total Protein Vancomycin Trough Crossmatch 12/24/21 12/25/21 12/25/21 23:43 05:29 11:48 WBC RBC Hgb Hct MCV MCH MCHC RDW Plt Count Seg Neuts % (Manual) Lymphocytes % (Manual) Seg Neutrophils # Man Lymphocytes # (Manual) Monocytes # (Manual) PT INR D-Dimer ABG pH ABG pO2 ABG HCO3 ABG O2 Saturation ABG Base Excess ABG Hemoglobin Oxyhemoglobin Sodium Potassium Chloride Carbon Dioxide BUN Creatinine Glucose POC Glucose 123 H 107 H 119 H Lactic Acid Calcium Phosphorus Magnesium AST ALT Alkaline Phosphatase Lactate Dehydrogenase Troponin T C-Reactive Protein NT-Pro-B Natriuret Pep Total Protein Albumin LDL Cholesterol Direct Vitamin B12 Urine WBC (Auto) Fluid Glucose Fluid Total Protein Vancomycin Trough Crossmatch 12/26/21 12/26/21 12/26/21 00:06 05:56 07:51 WBC 11.4 H RBC 3.40 L Hgb 9.3 L Hct 28.3 L MCV MCH 27 L MCHC RDW 18.2 H Plt Count Seg Neuts % (Manual) Lymphocytes % (Manual) Seg Neutrophils # Man Lymphocytes # (Manual) Monocytes # (Manual) PT INR D-Dimer ABG pH ABG pO2 ABG HCO3 ABG O2 Saturation ABG Base Excess ABG Hemoglobin Oxyhemoglobin Sodium Potassium Chloride Carbon Dioxide BUN Creatinine Glucose POC Glucose 133 H 107 H Lactic Acid Calcium Phosphorus Magnesium AST ALT Alkaline Phosphatase Lactate Dehydrogenase Troponin T C-Reactive Protein NT-Pro-B Natriuret Pep Total Protein Albumin LDL Cholesterol Direct Vitamin B12 Urine WBC (Auto) Fluid Glucose Fluid Total Protein Vancomycin Trough Crossmatch 12/26/21 12/26/21 12/26/21 07:51 11:43 17:06 WBC RBC Hgb Hct MCV MCH MCHC RDW Plt Count Seg Neuts % (Manual) Lymphocytes % (Manual) Seg Neutrophils # Man Lymphocytes # (Manual) Monocytes # (Manual) PT INR D-Dimer ABG pH ABG pO2 ABG HCO3 ABG O2 Saturation ABG Base Excess ABG Hemoglobin Oxyhemoglobin Sodium 136 L Potassium Chloride Carbon Dioxide BUN 25 H Creatinine 0.3 L Glucose 131 H POC Glucose 119 H 128 H Lactic Acid Calcium Phosphorus Magnesium AST ALT Alkaline Phosphatase Lactate Dehydrogenase Troponin T C-Reactive Protein NT-Pro-B Natriuret Pep Total Protein Albumin LDL Cholesterol Direct Vitamin B12 Urine WBC (Auto) Fluid Glucose Fluid Total Protein Vancomycin Trough Crossmatch 12/28/21 12/28/21 12/29/21 09:05 09:05 04:40 WBC RBC 3.19 L Hgb 8.9 L Hct 26.4 L MCV MCH 27 L MCHC RDW 18.4 H 17.9 H Plt Count Seg Neuts % (Manual) Lymphocytes % (Manual) Seg Neutrophils # Man Lymphocytes # (Manual) Monocytes # (Manual) PT INR D-Dimer ABG pH ABG pO2 ABG HCO3 ABG O2 Saturation ABG Base Excess ABG Hemoglobin Oxyhemoglobin Sodium 135 L Potassium Chloride 97.8 L Carbon Dioxide BUN 18 H Creatinine 0.3 L Glucose POC Glucose Lactic Acid Calcium Phosphorus Magnesium AST ALT Alkaline Phosphatase Lactate Dehydrogenase Troponin T C-Reactive Protein NT-Pro-B Natriuret Pep Total Protein Albumin LDL Cholesterol Direct Vitamin B12 Urine WBC (Auto) Fluid Glucose Fluid Total Protein Vancomycin Trough Crossmatch 12/29/21 12/29/21 12/30/21 04:40 12:47 04:05 WBC RBC 3.29 L Hgb 8.7 L Hct 27.6 L MCV MCH 27 L MCHC RDW 17.6 H Plt Count Seg Neuts % (Manual) Lymphocytes % (Manual) Seg Neutrophils # Man Lymphocytes # (Manual) Monocytes # (Manual) PT INR D-Dimer ABG pH ABG pO2 ABG HCO3 ABG O2 Saturation ABG Base Excess ABG Hemoglobin Oxyhemoglobin Sodium 136 L Potassium Chloride Carbon Dioxide BUN Creatinine 0.3 L Glucose POC Glucose 67 L Lactic Acid Calcium 8.3 L Phosphorus Magnesium AST ALT Alkaline Phosphatase Lactate Dehydrogenase Troponin T C-Reactive Protein NT-Pro-B Natriuret Pep Total Protein Albumin LDL Cholesterol Direct Vitamin B12 Urine WBC (Auto) Fluid Glucose Fluid Total Protein Vancomycin Trough Crossmatch 12/30/21 12/31/21 12/31/21 04:05 00:07 04:00 WBC RBC 3.05 L Hgb 8.5 L Hct 25.5 L MCV MCH MCHC RDW 18.2 H Plt Count Seg Neuts % (Manual) Lymphocytes % (Manual) Seg Neutrophils # Man Lymphocytes # (Manual) Monocytes # (Manual) PT INR D-Dimer ABG pH ABG pO2 ABG HCO3 ABG O2 Saturation ABG Base Excess ABG Hemoglobin Oxyhemoglobin Sodium 136 L Potassium 3.5 L Chloride Carbon Dioxide BUN Creatinine 0.4 L Glucose POC Glucose 139 H Lactic Acid Calcium Phosphorus Magnesium 1.50 L AST ALT Alkaline Phosphatase Lactate Dehydrogenase Troponin T C-Reactive Protein NT-Pro-B Natriuret Pep Total Protein Albumin LDL Cholesterol Direct Vitamin B12 Urine WBC (Auto) Fluid Glucose Fluid Total Protein Vancomycin Trough Crossmatch 12/31/21 12/31/21 12/31/21 04:00 04:52 11:23 WBC RBC Hgb Hct MCV MCH MCHC RDW Plt Count Seg Neuts % (Manual) Lymphocytes % (Manual) Seg Neutrophils # Man Lymphocytes # (Manual) Monocytes # (Manual) PT INR D-Dimer ABG pH ABG pO2 ABG HCO3 ABG O2 Saturation ABG Base Excess ABG Hemoglobin Oxyhemoglobin Sodium Potassium Chloride Carbon Dioxide BUN 19 H Creatinine 0.4 L Glucose 116 H POC Glucose 121 H 116 H Lactic Acid Calcium Phosphorus Magnesium AST ALT Alkaline Phosphatase Lactate Dehydrogenase Troponin T C-Reactive Protein NT-Pro-B Natriuret Pep Total Protein Albumin LDL Cholesterol Direct Vitamin B12 Urine WBC (Auto) Fluid Glucose Fluid Total Protein Vancomycin Trough Crossmatch 12/31/21 01/01/22 01/01/22 17:42 04:31 04:31 WBC RBC 2.83 L Hgb 7.7 L Hct 23.2 L MCV MCH 27 L MCHC RDW 18.3 H Plt Count Seg Neuts % (Manual) Lymphocytes % (Manual) Seg Neutrophils # Man Lymphocytes # (Manual) Monocytes # (Manual) PT INR D-Dimer ABG pH ABG pO2 ABG HCO3 ABG O2 Saturation ABG Base Excess ABG Hemoglobin Oxyhemoglobin Sodium 135 L Potassium Chloride 97.7 L Carbon Dioxide BUN 21 H Creatinine 0.5 L Glucose 127 H POC Glucose 107 H Lactic Acid Calcium 8.0 L Phosphorus Magnesium AST ALT Alkaline Phosphatase Lactate Dehydrogenase Troponin T C-Reactive Protein NT-Pro-B Natriuret Pep Total Protein Albumin LDL Cholesterol Direct Vitamin B12 Urine WBC (Auto) Fluid Glucose Fluid Total Protein Vancomycin Trough Crossmatch 01/01/22 01/01/22 01/01/22 05:24 11:25 18:11 WBC RBC Hgb Hct MCV MCH MCHC RDW Plt Count Seg Neuts % (Manual) Lymphocytes % (Manual) Seg Neutrophils # Man Lymphocytes # (Manual) Monocytes # (Manual) PT INR D-Dimer ABG pH ABG pO2 ABG HCO3 ABG O2 Saturation ABG Base Excess ABG Hemoglobin Oxyhemoglobin Sodium Potassium Chloride Carbon Dioxide BUN Creatinine Glucose POC Glucose 124 H 140 H 144 H Lactic Acid Calcium Phosphorus Magnesium AST ALT Alkaline Phosphatase Lactate Dehydrogenase Troponin T C-Reactive Protein NT-Pro-B Natriuret Pep Total Protein Albumin LDL Cholesterol Direct Vitamin B12 Urine WBC (Auto) Fluid Glucose Fluid Total Protein Vancomycin Trough Crossmatch 01/01/22 01/02/22 01/02/22 23:26 04:01 04:01 WBC RBC 2.57 L Hgb 7.1 L Hct 21.5 L MCV MCH MCHC RDW 18.1 H Plt Count Seg Neuts % (Manual) Lymphocytes % (Manual) Seg Neutrophils # Man Lymphocytes # (Manual) Monocytes # (Manual) PT INR D-Dimer ABG pH ABG pO2 ABG HCO3 ABG O2 Saturation ABG Base Excess ABG Hemoglobin Oxyhemoglobin Sodium 131 L Potassium 3.5 L Chloride 94.8 L Carbon Dioxide BUN 27 H Creatinine Glucose 121 H POC Glucose 121 H Lactic Acid Calcium Phosphorus Magnesium AST ALT Alkaline Phosphatase Lactate Dehydrogenase Troponin T C-Reactive Protein NT-Pro-B Natriuret Pep Total Protein Albumin LDL Cholesterol Direct Vitamin B12 Urine WBC (Auto) Fluid Glucose Fluid Total Protein Vancomycin Trough Crossmatch 01/02/22 01/02/22 01/02/22 05:30 11:10 16:08 WBC RBC Hgb Hct MCV MCH MCHC RDW Plt Count Seg Neuts % (Manual) Lymphocytes % (Manual) Seg Neutrophils # Man Lymphocytes # (Manual) Monocytes # (Manual) PT INR D-Dimer ABG pH ABG pO2 ABG HCO3 ABG O2 Saturation ABG Base Excess ABG Hemoglobin Oxyhemoglobin Sodium Potassium Chloride Carbon Dioxide BUN Creatinine Glucose POC Glucose 124 H 117 H 130 H Lactic Acid Calcium Phosphorus Magnesium AST ALT Alkaline Phosphatase Lactate Dehydrogenase Troponin T C-Reactive Protein NT-Pro-B Natriuret Pep Total Protein Albumin LDL Cholesterol Direct Vitamin B12 Urine WBC (Auto) Fluid Glucose Fluid Total Protein Vancomycin Trough Crossmatch 01/02/22 01/02/22 01/03/22 17:30 23:26 04:53 WBC RBC 2.82 L Hgb 7.7 L Hct 23.4 L MCV MCH 27 L MCHC RDW 18.0 H Plt Count Seg Neuts % (Manual) Lymphocytes % (Manual) Seg Neutrophils # Man Lymphocytes # (Manual) Monocytes # (Manual) PT INR D-Dimer ABG pH ABG pO2 ABG HCO3 ABG O2 Saturation ABG Base Excess ABG Hemoglobin Oxyhemoglobin Sodium Potassium Chloride Carbon Dioxide BUN Creatinine Glucose POC Glucose 114 H Lactic Acid Calcium Phosphorus Magnesium AST ALT Alkaline Phosphatase Lactate Dehydrogenase Troponin T C-Reactive Protein NT-Pro-B Natriuret Pep Total Protein Albumin LDL Cholesterol Direct Vitamin B12 Urine WBC (Auto) Fluid Glucose Fluid Total Protein Vancomycin Trough 22.8 H Crossmatch 01/03/22 01/03/22 01/03/22 04:53 06:23 17:35 WBC RBC Hgb Hct MCV MCH MCHC RDW Plt Count Seg Neuts % (Manual) Lymphocytes % (Manual) Seg Neutrophils # Man Lymphocytes # (Manual) Monocytes # (Manual) PT INR D-Dimer ABG pH ABG pO2 ABG HCO3 ABG O2 Saturation ABG Base Excess ABG Hemoglobin Oxyhemoglobin Sodium 133 L Potassium Chloride 96.2 L Carbon Dioxide BUN 30 H Creatinine Glucose 107 H POC Glucose 122 H 107 H Lactic Acid Calcium Phosphorus Magnesium AST ALT Alkaline Phosphatase Lactate Dehydrogenase Troponin T C-Reactive Protein NT-Pro-B Natriuret Pep Total Protein Albumin LDL Cholesterol Direct Vitamin B12 Urine WBC (Auto) Fluid Glucose Fluid Total Protein Vancomycin Trough Crossmatch 01/04/22 01/04/22 01/04/22 04:00 12:32 16:45 WBC RBC Hgb Hct MCV MCH MCHC RDW Plt Count Seg Neuts % (Manual) Lymphocytes % (Manual) Seg Neutrophils # Man Lymphocytes # (Manual) Monocytes # (Manual) PT INR D-Dimer ABG pH ABG pO2 ABG HCO3 ABG O2 Saturation ABG Base Excess ABG Hemoglobin Oxyhemoglobin Sodium 132 L Potassium Chloride 92.8 L Carbon Dioxide BUN 30 H Creatinine Glucose 115 H POC Glucose 111 H 111 H Lactic Acid Calcium Phosphorus Magnesium 1.60 L AST ALT Alkaline Phosphatase Lactate Dehydrogenase Troponin T C-Reactive Protein NT-Pro-B Natriuret Pep Total Protein Albumin LDL Cholesterol Direct Vitamin B12 Urine WBC (Auto) Fluid Glucose Fluid Total Protein Vancomycin Trough Crossmatch 01/05/22 01/05/22 01/05/22 04:30 04:30 17:04 WBC RBC 3.11 L Hgb 8.4 L Hct 25.5 L MCV MCH 27 L MCHC RDW 17.6 H Plt Count Seg Neuts % (Manual) Lymphocytes % (Manual) Seg Neutrophils # Man Lymphocytes # (Manual) Monocytes # (Manual) PT INR D-Dimer ABG pH ABG pO2 ABG HCO3 ABG O2 Saturation ABG Base Excess ABG Hemoglobin Oxyhemoglobin Sodium 135 L Potassium Chloride 93.6 L Carbon Dioxide BUN 29 H Creatinine Glucose POC Glucose 67 L Lactic Acid Calcium Phosphorus Magnesium AST ALT Alkaline Phosphatase Lactate Dehydrogenase Troponin T C-Reactive Protein NT-Pro-B Natriuret Pep Total Protein Albumin LDL Cholesterol Direct Vitamin B12 Urine WBC (Auto) Fluid Glucose Fluid Total Protein Vancomycin Trough Crossmatch 01/05/22 01/06/22 01/06/22 23:27 04:06 04:06 WBC RBC 2.89 L Hgb 7.7 L Hct 23.8 L MCV MCH 27 L MCHC RDW 18.0 H Plt Count Seg Neuts % (Manual) Lymphocytes % (Manual) Seg Neutrophils # Man Lymphocytes # (Manual) Monocytes # (Manual) PT 16.9 H INR 1.23 H D-Dimer ABG pH ABG pO2 ABG HCO3 ABG O2 Saturation ABG Base Excess ABG Hemoglobin Oxyhemoglobin Sodium Potassium Chloride Carbon Dioxide BUN Creatinine Glucose POC Glucose 110 H Lactic Acid Calcium Phosphorus Magnesium AST ALT Alkaline Phosphatase Lactate Dehydrogenase Troponin T C-Reactive Protein NT-Pro-B Natriuret Pep Total Protein Albumin LDL Cholesterol Direct Vitamin B12 Urine WBC (Auto) Fluid Glucose Fluid Total Protein Vancomycin Trough Crossmatch 01/06/22 01/06/22 01/06/22 04:06 13:40 23:41 WBC RBC Hgb Hct MCV MCH MCHC RDW Plt Count Seg Neuts % (Manual) Lymphocytes % (Manual) Seg Neutrophils # Man Lymphocytes # (Manual) Monocytes # (Manual) PT INR D-Dimer ABG pH ABG pO2 ABG HCO3 ABG O2 Saturation ABG Base Excess ABG Hemoglobin Oxyhemoglobin Sodium 132 L Potassium Chloride 92.3 L Carbon Dioxide BUN 26 H Creatinine Glucose 111 H POC Glucose 120 H Lactic Acid Calcium Phosphorus Magnesium AST ALT Alkaline Phosphatase Lactate Dehydrogenase Troponin T C-Reactive Protein NT-Pro-B Natriuret Pep Total Protein Albumin LDL Cholesterol Direct Vitamin B12 Urine WBC (Auto) Fluid Glucose 96 H Fluid Total Protein < 3.0 L Vancomycin Trough Crossmatch 01/07/22 01/07/22 01/07/22 05:20 11:30 17:00 WBC RBC Hgb Hct MCV MCH MCHC RDW Plt Count Seg Neuts % (Manual) Lymphocytes % (Manual) Seg Neutrophils # Man Lymphocytes # (Manual) Monocytes # (Manual) PT INR D-Dimer ABG pH ABG pO2 ABG HCO3 ABG O2 Saturation ABG Base Excess ABG Hemoglobin Oxyhemoglobin Sodium Potassium Chloride Carbon Dioxide BUN Creatinine Glucose POC Glucose 111 H 113 H 121 H Lactic Acid Calcium Phosphorus Magnesium AST ALT Alkaline Phosphatase Lactate Dehydrogenase Troponin T C-Reactive Protein NT-Pro-B Natriuret Pep Total Protein Albumin LDL Cholesterol Direct Vitamin B12 Urine WBC (Auto) Fluid Glucose Fluid Total Protein Vancomycin Trough Crossmatch 01/07/22 01/08/22 01/08/22 23:41 11:26 16:23 WBC RBC Hgb Hct MCV MCH MCHC RDW Plt Count Seg Neuts % (Manual) Lymphocytes % (Manual) Seg Neutrophils # Man Lymphocytes # (Manual) Monocytes # (Manual) PT INR D-Dimer ABG pH ABG pO2 ABG HCO3 ABG O2 Saturation ABG Base Excess ABG Hemoglobin Oxyhemoglobin Sodium Potassium Chloride Carbon Dioxide BUN Creatinine Glucose POC Glucose 110 H 129 H 118 H Lactic Acid Calcium Phosphorus Magnesium AST ALT Alkaline Phosphatase Lactate Dehydrogenase Troponin T C-Reactive Protein NT-Pro-B Natriuret Pep Total Protein Albumin LDL Cholesterol Direct Vitamin B12 Urine WBC (Auto) Fluid Glucose Fluid Total Protein Vancomycin Trough Crossmatch 01/09/22 01/10/22 01/10/22 18:13 00:27 04:00 WBC RBC Hgb Hct MCV MCH MCHC RDW Plt Count Seg Neuts % (Manual) Lymphocytes % (Manual) Seg Neutrophils # Man Lymphocytes # (Manual) Monocytes # (Manual) PT INR D-Dimer ABG pH ABG pO2 ABG HCO3 ABG O2 Saturation ABG Base Excess ABG Hemoglobin Oxyhemoglobin Sodium 133 L Potassium Chloride 92.6 L Carbon Dioxide 31 H BUN 29 H Creatinine 0.5 L Glucose 115 H POC Glucose 118 H 111 H Lactic Acid Calcium Phosphorus Magnesium AST ALT Alkaline Phosphatase Lactate Dehydrogenase Troponin T C-Reactive Protein NT-Pro-B Natriuret Pep Total Protein Albumin LDL Cholesterol Direct Vitamin B12 Urine WBC (Auto) Fluid Glucose Fluid Total Protein Vancomycin Trough Crossmatch 01/10/22 01/11/22 01/11/22 05:47 05:10 11:14 WBC RBC Hgb Hct MCV MCH MCHC RDW Plt Count Seg Neuts % (Manual) Lymphocytes % (Manual) Seg Neutrophils # Man Lymphocytes # (Manual) Monocytes # (Manual) PT INR D-Dimer ABG pH ABG pO2 ABG HCO3 ABG O2 Saturation ABG Base Excess ABG Hemoglobin Oxyhemoglobin Sodium Potassium Chloride Carbon Dioxide BUN Creatinine Glucose POC Glucose 106 H 118 H 136 H Lactic Acid Calcium Phosphorus Magnesium AST ALT Alkaline Phosphatase Lactate Dehydrogenase Troponin T C-Reactive Protein NT-Pro-B Natriuret Pep Total Protein Albumin LDL Cholesterol Direct Vitamin B12 Urine WBC (Auto) Fluid Glucose Fluid Total Protein Vancomycin Trough Crossmatch 01/11/22 01/11/22 01/12/22 17:14 23:52 05:39 WBC RBC Hgb Hct MCV MCH MCHC RDW Plt Count Seg Neuts % (Manual) Lymphocytes % (Manual) Seg Neutrophils # Man Lymphocytes # (Manual) Monocytes # (Manual) PT INR D-Dimer ABG pH ABG pO2 ABG HCO3 ABG O2 Saturation ABG Base Excess ABG Hemoglobin Oxyhemoglobin Sodium Potassium Chloride Carbon Dioxide BUN Creatinine Glucose POC Glucose 117 H 110 H 110 H Lactic Acid Calcium Phosphorus Magnesium AST ALT Alkaline Phosphatase Lactate Dehydrogenase Troponin T C-Reactive Protein NT-Pro-B Natriuret Pep Total Protein Albumin LDL Cholesterol Direct Vitamin B12 Urine WBC (Auto) Fluid Glucose Fluid Total Protein Vancomycin Trough Crossmatch 01/13/22 01/13/22 01/14/22 11:15 17:21 05:33 WBC RBC Hgb Hct MCV MCH MCHC RDW Plt Count Seg Neuts % (Manual) Lymphocytes % (Manual) Seg Neutrophils # Man Lymphocytes # (Manual) Monocytes # (Manual) PT INR D-Dimer ABG pH ABG pO2 ABG HCO3 ABG O2 Saturation ABG Base Excess ABG Hemoglobin Oxyhemoglobin Sodium Potassium Chloride Carbon Dioxide BUN Creatinine Glucose POC Glucose 113 H 121 H 136 H Lactic Acid Calcium Phosphorus Magnesium AST ALT Alkaline Phosphatase Lactate Dehydrogenase Troponin T C-Reactive Protein NT-Pro-B Natriuret Pep Total Protein Albumin LDL Cholesterol Direct Vitamin B12 Urine WBC (Auto) Fluid Glucose Fluid Total Protein Vancomycin Trough Crossmatch 01/14/22 01/15/22 01/15/22 11:28 00:13 05:24 WBC RBC Hgb Hct MCV MCH MCHC RDW Plt Count Seg Neuts % (Manual) Lymphocytes % (Manual) Seg Neutrophils # Man Lymphocytes # (Manual) Monocytes # (Manual) PT INR D-Dimer ABG pH ABG pO2 ABG HCO3 ABG O2 Saturation ABG Base Excess ABG Hemoglobin Oxyhemoglobin Sodium Potassium Chloride Carbon Dioxide BUN Creatinine Glucose POC Glucose 117 H 109 H 117 H Lactic Acid Calcium Phosphorus Magnesium AST ALT Alkaline Phosphatase Lactate Dehydrogenase Troponin T C-Reactive Protein NT-Pro-B Natriuret Pep Total Protein Albumin LDL Cholesterol Direct Vitamin B12 Urine WBC (Auto) Fluid Glucose Fluid Total Protein Vancomycin Trough Crossmatch 01/15/22 01/15/22 01/15/22 11:38 14:36 17:05 WBC RBC 3.11 L Hgb 8.4 L Hct 25.7 L MCV MCH 27 L MCHC RDW 17.2 H Plt Count Seg Neuts % (Manual) 82.0 H Lymphocytes % (Manual) 11.0 L Seg Neutrophils # Man 8.8 H Lymphocytes # (Manual) Monocytes # (Manual) PT INR D-Dimer ABG pH ABG pO2 ABG HCO3 ABG O2 Saturation ABG Base Excess ABG Hemoglobin Oxyhemoglobin Sodium Potassium Chloride Carbon Dioxide BUN Creatinine Glucose POC Glucose 107 H 108 H Lactic Acid Calcium Phosphorus Magnesium AST ALT Alkaline Phosphatase Lactate Dehydrogenase Troponin T C-Reactive Protein NT-Pro-B Natriuret Pep Total Protein Albumin LDL Cholesterol Direct Vitamin B12 Urine WBC (Auto) Fluid Glucose Fluid Total Protein Vancomycin Trough Crossmatch 01/15/22 01/15/22 01/15/22 21:07 Unknown Unknown WBC RBC 2.97 L Hgb 8.0 L Hct 24.3 L MCV MCH 27 L MCHC RDW 17.2 H Plt Count Seg Neuts % (Manual) Lymphocytes % (Manual) Seg Neutrophils # Man Lymphocytes # (Manual) Monocytes # (Manual) PT INR D-Dimer ABG pH ABG pO2 ABG HCO3 ABG O2 Saturation ABG Base Excess ABG Hemoglobin Oxyhemoglobin Sodium 131 L Potassium Chloride 93.1 L Carbon Dioxide BUN 27 H Creatinine Glucose 110 H POC Glucose Lactic Acid Calcium 8.3 L Phosphorus Magnesium AST ALT Alkaline Phosphatase Lactate Dehydrogenase Troponin T 0.088 H C-Reactive Protein NT-Pro-B Natriuret Pep Total Protein Albumin LDL Cholesterol Direct 44 L Vitamin B12 Urine WBC (Auto) Fluid Glucose Fluid Total Protein Vancomycin Trough Crossmatch 01/15/22 01/16/22 01/16/22 Unknown 05:21 12:59 WBC RBC Hgb Hct MCV MCH MCHC RDW Plt Count Seg Neuts % (Manual) Lymphocytes % (Manual) Seg Neutrophils # Man Lymphocytes # (Manual) Monocytes # (Manual) PT INR D-Dimer ABG pH ABG pO2 ABG HCO3 ABG O2 Saturation ABG Base Excess ABG Hemoglobin Oxyhemoglobin Sodium 134 L 134 L Potassium 3.4 L Chloride 93.9 L 95.4 L Carbon Dioxide BUN 26 H 24 H Creatinine Glucose 168 H POC Glucose 159 H Lactic Acid Calcium 8.1 L Phosphorus Magnesium AST ALT Alkaline Phosphatase Lactate Dehydrogenase Troponin T 0.078 H C-Reactive Protein NT-Pro-B Natriuret Pep Total Protein Albumin LDL Cholesterol Direct Vitamin B12 Urine WBC (Auto) Fluid Glucose Fluid Total Protein Vancomycin Trough Crossmatch 01/16/22 01/17/22 01/17/22 23:22 05:20 14:24 WBC RBC Hgb Hct MCV MCH MCHC RDW Plt Count Seg Neuts % (Manual) Lymphocytes % (Manual) Seg Neutrophils # Man Lymphocytes # (Manual) Monocytes # (Manual) PT INR D-Dimer ABG pH ABG pO2 55.0 L ABG HCO3 29.5 H ABG O2 Saturation 87.8 L ABG Base Excess 4.5 H ABG Hemoglobin 9.3 L Oxyhemoglobin 86.1 L Sodium Potassium Chloride Carbon Dioxide BUN Creatinine Glucose POC Glucose 113 H 111 H Lactic Acid Calcium Phosphorus Magnesium AST ALT Alkaline Phosphatase Lactate Dehydrogenase Troponin T C-Reactive Protein NT-Pro-B Natriuret Pep Total Protein Albumin LDL Cholesterol Direct Vitamin B12 Urine WBC (Auto) Fluid Glucose Fluid Total Protein Vancomycin Trough Crossmatch 01/17/22 01/18/22 01/18/22 17:14 05:39 11:53 WBC RBC Hgb Hct MCV MCH MCHC RDW Plt Count Seg Neuts % (Manual) Lymphocytes % (Manual) Seg Neutrophils # Man Lymphocytes # (Manual) Monocytes # (Manual) PT INR D-Dimer ABG pH ABG pO2 ABG HCO3 ABG O2 Saturation ABG Base Excess ABG Hemoglobin Oxyhemoglobin Sodium Potassium Chloride Carbon Dioxide BUN Creatinine Glucose POC Glucose 126 H 108 H 113 H Lactic Acid Calcium Phosphorus Magnesium AST ALT Alkaline Phosphatase Lactate Dehydrogenase Troponin T C-Reactive Protein NT-Pro-B Natriuret Pep Total Protein Albumin LDL Cholesterol Direct Vitamin B12 Urine WBC (Auto) Fluid Glucose Fluid Total Protein Vancomycin Trough Crossmatch 01/18/22 01/19/22 01/19/22 12:50 00:04 04:50 WBC RBC 3.14 L Hgb 8.4 L Hct 26.0 L MCV MCH 27 L MCHC RDW 18.2 H Plt Count Seg Neuts % (Manual) Lymphocytes % (Manual) Seg Neutrophils # Man Lymphocytes # (Manual) Monocytes # (Manual) PT INR D-Dimer ABG pH ABG pO2 112.3 H ABG HCO3 30.9 H ABG O2 Saturation ABG Base Excess 5.8 H ABG Hemoglobin 8.8 L Oxyhemoglobin Sodium Potassium Chloride Carbon Dioxide BUN Creatinine Glucose POC Glucose 115 H Lactic Acid Calcium Phosphorus Magnesium AST ALT Alkaline Phosphatase Lactate Dehydrogenase Troponin T C-Reactive Protein NT-Pro-B Natriuret Pep Total Protein Albumin LDL Cholesterol Direct Vitamin B12 Urine WBC (Auto) Fluid Glucose Fluid Total Protein Vancomycin Trough Crossmatch 01/19/22 01/19/22 01/19/22 04:50 11:51 20:45 WBC RBC Hgb Hct MCV MCH MCHC RDW Plt Count Seg Neuts % (Manual) Lymphocytes % (Manual) Seg Neutrophils # Man Lymphocytes # (Manual) Monocytes # (Manual) PT INR D-Dimer ABG pH ABG pO2 95.2 H ABG HCO3 29.8 H ABG O2 Saturation ABG Base Excess 4.3 H ABG Hemoglobin 8.0 L Oxyhemoglobin Sodium 134 L Potassium Chloride 95.4 L Carbon Dioxide BUN 28 H Creatinine Glucose POC Glucose 111 H Lactic Acid Calcium Phosphorus Magnesium AST ALT Alkaline Phosphatase Lactate Dehydrogenase Troponin T C-Reactive Protein NT-Pro-B Natriuret Pep Total Protein Albumin LDL Cholesterol Direct Vitamin B12 Urine WBC (Auto) Fluid Glucose Fluid Total Protein Vancomycin Trough Crossmatch 01/20/22 01/21/22 01/22/22 11:43 23:32 11:12 WBC RBC Hgb Hct MCV MCH MCHC RDW Plt Count Seg Neuts % (Manual) Lymphocytes % (Manual) Seg Neutrophils # Man Lymphocytes # (Manual) Monocytes # (Manual) PT INR D-Dimer ABG pH ABG pO2 ABG HCO3 ABG O2 Saturation ABG Base Excess ABG Hemoglobin Oxyhemoglobin Sodium Potassium Chloride Carbon Dioxide BUN Creatinine Glucose POC Glucose 118 H 113 H 110 H Lactic Acid Calcium Phosphorus Magnesium AST ALT Alkaline Phosphatase Lactate Dehydrogenase Troponin T C-Reactive Protein NT-Pro-B Natriuret Pep Total Protein Albumin LDL Cholesterol Direct Vitamin B12 Urine WBC (Auto) Fluid Glucose Fluid Total Protein Vancomycin Trough Crossmatch 01/22/22 01/23/22 01/23/22 17:54 09:36 11:49 WBC RBC Hgb Hct MCV MCH MCHC RDW Plt Count Seg Neuts % (Manual) Lymphocytes % (Manual) Seg Neutrophils # Man Lymphocytes # (Manual) Monocytes # (Manual) PT INR D-Dimer ABG pH ABG pO2 ABG HCO3 ABG O2 Saturation ABG Base Excess ABG Hemoglobin Oxyhemoglobin Sodium Potassium Chloride Carbon Dioxide BUN Creatinine Glucose POC Glucose 115 H 194 H Lactic Acid Calcium Phosphorus Magnesium AST ALT Alkaline Phosphatase Lactate Dehydrogenase Troponin T C-Reactive Protein NT-Pro-B Natriuret Pep Total Protein Albumin LDL Cholesterol Direct Vitamin B12 Urine WBC (Auto) 16.0 H Fluid Glucose Fluid Total Protein Vancomycin Trough Crossmatch 01/23/22 01/24/22 01/24/22 11:50 05:37 11:56 WBC RBC Hgb Hct MCV MCH MCHC RDW Plt Count Seg Neuts % (Manual) Lymphocytes % (Manual) Seg Neutrophils # Man Lymphocytes # (Manual) Monocytes # (Manual) PT INR D-Dimer ABG pH 7.310 L ABG pO2 43.9 L ABG HCO3 28.0 H ABG O2 Saturation 70.8 L ABG Base Excess ABG Hemoglobin 9.3 L Oxyhemoglobin 69.2 L Sodium Potassium Chloride Carbon Dioxide BUN Creatinine Glucose POC Glucose 118 H 119 H Lactic Acid Calcium Phosphorus Magnesium AST ALT Alkaline Phosphatase Lactate Dehydrogenase Troponin T C-Reactive Protein NT-Pro-B Natriuret Pep Total Protein Albumin LDL Cholesterol Direct Vitamin B12 Urine WBC (Auto) Fluid Glucose Fluid Total Protein Vancomycin Trough Crossmatch 01/25/22 12:20 WBC RBC Hgb Hct MCV MCH MCHC RDW Plt Count Seg Neuts % (Manual) Lymphocytes % (Manual) Seg Neutrophils # Man Lymphocytes # (Manual) Monocytes # (Manual) PT INR D-Dimer ABG pH 7.488 H ABG pO2 58.9 L ABG HCO3 28.3 H ABG O2 Saturation 94.9 L ABG Base Excess 4.7 H ABG Hemoglobin 8.7 L Oxyhemoglobin 92.7 L Sodium Potassium Chloride Carbon Dioxide BUN Creatinine Glucose POC Glucose Lactic Acid Calcium Phosphorus Magnesium AST ALT Alkaline Phosphatase Lactate Dehydrogenase Troponin T C-Reactive Protein NT-Pro-B Natriuret Pep Total Protein Albumin LDL Cholesterol Direct Vitamin B12 Urine WBC (Auto) Fluid Glucose Fluid Total Protein Vancomycin Trough Crossmatch Chest x-ray: report reviewed, image reviewed Additional Studies: CHEST - 1 VIEW 01/25/22 INDICATION: bl pleural effusions COMPARISON: 01/21/2022 FINDINGS: SUPPORT DEVICES: Stable support device positioning. HEART: Stable cardiomediastinal silhouette. LUNGS/PLEURA: Moderate-sized left and trace right pleural effusions with patchy underlying airspace disease in the lungs. ADDITIONAL FINDINGS: None. IMPRESSION: Worsened exam. Allied health notes reviewed: nursing
[2022-01-25] MEDS: MELATONIN 5 MG TAB PO SCH (21:53)
[2022-01-25] MEDS: PRAVASTATIN 20 MG TAB FEEDTUBE SCH (21:53)
[2022-01-25] MEDS: traZODone 50 MG TAB PO SCH (21:54)
[2022-01-26] MEDS: ACETAMINOPHEN 325 MG/10.15 ML ORAL LIQD UNIT DOSE FEEDTUBE PRN (03:19)
[2022-01-26] MEDS: ALPRAZolam 0.5 MG TAB FEEDTUBE PRN (03:19)
[2022-01-26] MEDS: LEVOTHYROXINE 125 MCG TAB FEEDTUBE SCH (05:00)
[2022-01-26] MEDS: SUCRALFATE 1 GM/10 ML ORAL LIQD FEEDTUBE SCH ×3 (05:00→17:00)
[2022-01-26] MEDS: HYDROcodone/ACETAMINOPHEN 10-325MG TAB FEEDTUBE SCH ×3 (08:36→21:12)
[2022-01-26] MEDS: MIDODRINE 5 MG TAB FEEDTUBE SCH ×3 (08:36→17:01)
--- NOTE | 2022-01-26 08:57 | Progress Note ---
Assessment and Plan Assessment and plan: This is an 82-year-old female with DM, HTN , CHB s/p PPM, CAD s/p PCI and arthritis who presented to the emergency department on 11/04 for shortness of breath ongoing for the past 3 days, cough and according to family a fever of 102.2. Upon arrival of EMS patient was found to be tachypneic and hypoxic with SPO2 of 76% on room air which later improved to 88% on nonrebreather. Work-up in the emergency department included a CXR which showed bilateral interstitial pulmonary edema with bilateral pleural effusions and bibasilar opacities, leukocytosis and anemia with a hemoglobin of 6.1. Patient was admitted to the hospitalist service with acute anemia, acute hypoxic respiratory failure, bilateral pneumonia and COVID-19 PUI with consults to pulmonology, infectious disease and later cardiology. Patient was eventually intubated in the emergency department on 11/06. Hospital Course to date: 11/04/2021: Empiric therapy with iv levaquin/vancomycin. COVID PCR pending. Will consult ID. PCCM consulted, will follow recs. Hypotensive this AM, ordered bolus and fluids at 150 cc/hr. May require pressor support if bp does not improve. 11/05/2021: GBS on bcx +, currently on rocephin IV. Currently on bipap due to respiratory distress overnight. Worsening BL opacities on CXR. May be volume overload vs pneumonia. Unfortunately bp too low for lasix at this point. WIll continue levophed and bipap. Once able to tolerate, may do trial of albumin/lasix. Call attempt made to Niraj, no response. Will try again tomorrow to update. 11/06/2021: Decompensated overnight requiring intubation. CXR shows worsening interstitial infiltrates. Currenlty on dopamine, levophed, vasopressin. PICC line ordered. Advised RN to place gamble for I/O monitoring. Would benefit from diuresis but very volume overloaded. Prognosis guarded 11/08: Off sedation this am, remains unresponsive only grimace to pain. Hold all sedatives agents for now, patient is off pressors this am. Hypernatremia from today's lab- D5W X1bag, and low K repleted, repeat lab in the am. Severe constipation also noted from KUB, BR added. 11/09: Sudden SPO2 drop in the 60s this am. Patient was manually bagged and deep suctioned. Patient is currently stable on the vent, repeat CXR with no significant change. D/w CCM Mucomyst and brochodilator added. Patient mentation is unchanged, continue to hold off on sedative agents. Neurology consulted. 11/10: Acute DVT noted on bilateral lower extremity Doppler ultrasound therefore she was started on Lovenox treatment dose. Failed SBT. Hypernatremia and hyperchloremia noted, free water flush adjusted. 11/11: Patient noted to be febrile with increasing of the cytosis, UA/BC sent and CXR ordered. ID escalated antibiotics to cefepime. CXR demonstrated mucous plug, bedside bronchoscopy was performed and O ETT was changed over bougie from 6 cm to 7.5. Patient was noted to have a pneumothorax postprocedure and chest tube was placed. Family updated by [facility]. Free water flush increased and will add Jaswant supplementation. 11/12: Patient not noted to follow commands, hypernatremia worsen/persist, increasing free water flush, potassium and magnesium and phosphorus repleted. Hemoglobin noted to be 7./24.5 from 7.03/12 yesterday. We will continue to trend and monitor. Vent changes per [facility]. Repeat CXR showed no residual pneumothorax. Consider waterseal tomorrow. Given persistent leukocytosis antibiotics escalated to cefepime per ID. 11/13: Remains on cefepime and vancomycin, vent changes per [facility]. Anemia noted and given 1 unit PRBC. And beta-charleen held in setting of Levophed drip infusing. Remains on fentanyl drip. 11/14: Patient put on CPAP trial by [facility], will continue chest tube until after extubation. Will rest on assist control. CT brain was cancelled by coal grader and reordered. 11/15: Patient removed chest tube overnight. Will obtain cxr. remains on low dose levo. CTH completed with no acute findings. RT to place on CPAP. 11/16: Hypernatremia/hyperchloremia noted on the increase of day water flushes. Anemia noted and ordered PRBC. asked RT to place on cpap but not done yet 11/17: Patient remains on the vent, awake and following commands. H&H stable s/p 2units PRBCs. GI on consult, no intervention at this time. Will continue protonix gtt and serial H&H Q6hrs. Keep patient NPO for now, D5w added for hypernatremia and NPO status. Plan for IVC filter placement today by Vascular. 11/18: Patient is s/p IVC filter. H&H continue to trend down, hbg 6.1 this am, 1 unit of PRBCs ordered. Plan for possible EGD today by GI. Keep patient NPO, continue PPI drip and serial H&H Q6hrs. Electrolytes repleted, repeat lab in the am 11/19: S/p EGD- larger duodenal ulcer noted, see operative note. GI recommendations noted also noted. H&H stable this am. Keep patient on protonix gtt for now. Will keep patient NPO, continue IVF and serial H&H for now. Electrolytes repleted, repeat labs in the am 11/20: Very agitated and restless this am, fentanyl gtt resumed. Patient remains on protonix gtt, H&H remains stable. Will switch protonix gtt to IV BID, continue carafate and okay to resume meds at this time. Will F/u with GI to see if TF can be resumed. Gamble was reinserted overnight for retention. Electrolytes repleted, repeat in the am. Plan for possible PST today for possible extubation per CCM. 11/21: Patient is now on seroquel and patient's home buspar resumed. Patient more calm this morning, fentanyl gtt is off. H&H remains stable and patient is tolerating TF. Patient had a runs of Vtach/PVCs this am, BB added per Cardio. Continue daily PS and wean trial for possible extubation. 11/22: Back on fentanyl gtt overnight , RASS o to -1, following commands. Patient failed PST this am due to increased work of breathing and low SPO2, ABG pending. Patient is also with worsen pitting edema, lasix is still on hold. Will discuss with cardio and CCM to possibly resume lasix. 11/23: MARIA DEL CARMEN overnight. Patient failed PST again this am. Per CCM plan for possible trach and PEG, hold off on IV lasix for now. General surgery consulted and family is aware of possible Trach and PEG. 11/24: Trach/PEG pending this week, continue SBT/SAT as tolerated. No acute events reported overnight. 11/25: Patient was n.p.o. overnight and will remain n.p.o. tonight for trach/PEG tomorrow morning. She failed to support trial again. KUB obtained due to distended belly. 11/26: Patient scheduled for tracheostomy and PEG tube placement today, has been n.p.o. since midnight. No acute events reported overnight. [facility] ordered simethicone scheduled. 11/27: No acute events reported overnight, patient received trach/PEG yesterday. Has been on feedings since last night. Still awaiting LTAC placement. 11/28: Patient magnesium repleted, repeat a.m. labs, SBT 11/29: Patient complains of chest pain but ECG obtained which showed no acute findings, ordered troponin. Patient failed CPAP yesterday and was trialed again today. levophed was restarted but will aggressively wean 11/30: Patient failed SBT. Continue supportive care. Started gabapentin today 12/01: MARIA DEL CARMEN overnight. Continue daily PST. Case management to arrange possible placement 12/02: Report of dark stools overnight, patient is hemodynamically stable. H&H stable, patient is on PPI. Will continue to trend H&H. Continue daily PST as tolerated. Awaiting LTAC vs SNF placement. 12/03: Hypotensive overnight, requiring low dose pressors. S/p X3 days of gentle diurese. Will continue to monitor, wean off pressors as tolerated for MAP of 65. Patient Failed PST yesterday, case management to follow up with insurance for po ssible LTAC placement. Continue daily PST as tolerated. PT eval and treat ordered. 12/04: Increased agitation and anxiety overnight, remains on buspar and seroquel, trazadone added to promote rest. Patient is now working with PT, keep patient engage and awake during the day so she can rest at night. No BM for over 5 days, BR was adjusted. Patient did not tolerate PST again yesterday, continue daily PST as tolerated. Continue to titrate pressor for MAP above 65. Pending possible LTAC placement, case management to arrange. 12/05: Still not getting much rest overnight, will add melatonin for sleep. Continue to engage patient during the day and promote rest at night. TF was held due to concern for possible bleeding, H&H remains stable and stools normal this am. Resume TF and continue PPI and carafate. Remains on low dose levophed, titrate as tolerated. Continue daily PST. Possible LTAC placement, awaiting approval. 12/06: MARIA DEL CARMEN overnight. Patient rested overnight. Continue supportive measures. Daily PST as tolerated. Awaiting possible LTAC placement 12/07: MARIA DEL CARMEN overnight. Plan for Tpiece trial today. Continue current supportive measures. Possible LTAC placement 12/08: Patient placed on pressure support trial again today, started on Xanax, no acute events reported overnight. Awaiting insurance approval for LTAC. 12/09: Levophed discontinued, LTAC transfer denied, started on midodrine and Lasix, ultrasound chest pending, started on Xanax 0.[address] De León updated family at bedside today. Started on Dilaudid every 3 hours as needed. 12/10: Patient placed on CPAP trial this morning, no acute events reported overnight. Will order ultrasound-guided thoracentesis. 12/11: Patient had a thoracentesis today, will decrease Xanax dosage and continue midodrine and diuresing. Patient failed CPAP today. 12/12: Patient not tolerate CPAP trials today, no acute events reported overnight 12/13: No acute events overnight. continue PSV trials as tolerated. Daughter up dated at bedside 12/14: Patient noted to be anemic today, ordered gastric occult. Patient seems to be oversedated therefore Xanax changed to as needed and fentanyl patch discontinued. We will continue to monitor hyponatremia. 12/15: MARIA DEL CARMEN overnight. s/p 1unit of PRBCs, H&H stable this am, no signs of any active bleeding. Continue daily PST as tolerated. Awaiting placement. 12/16: Hypertensive this am, Midodrine decreased. Continue daily PST. MARIA DEL CARMEN overnight 12/17: Patient Hgb dropped to 6 this am, no s/s of any active bleeding, VSS. Patient received 1unit of PRBC, will continue to trend H&H. Patient was pancultured and back on IV Abx due to persistent fevers yesterday. ID is also back on the case. Continue IV Abx per ID and f/u on cultures data for sensitivity. Patient also failed PST yesterday, continue daily PST as tolerated. Electrolytes repleted, repeat labs in the am. 12/18: Patient blood cultures is growing GPC 4 out 4 bottles. PICC line D/Rivas, patient is already on IV Abx-cefepine and Vanc and ID is following. Patient remains hemodynamically stable. Daily PST as tolerated adn PRN Benzo for anxiety. 12/19: MARIA DEL CARMEN overnight. Culture data noted, continue IV Abx per ID. Orders placed for repeat Bculture. Gamble D/C overnight, patient is voiding. Check bladder scan as needed for retention. Patient failed PST again today. Continue daily PST as tolerated. 12/20: Fevers improved, Cultures +MRSA, on Vanco per ID. Repeat 2D Echo to r/o endocarditis. Patient continue to fail PST, PEEP increased to 8 today. Continue pulmonary hygiene and vent wean per CCM. Sodium tab added for hyponatremia. 12/22: Patient on pressure support trial for approximately 4 hours today, midodrine dosage increased due to hypotension. Lasix discontinued. 12/23: Started on a.m. Seroquel dose, midodrine increased to 10 mg 3 times daily, 500 mL normal saline bolus. 12/24: Seroquel dose changed (25 every morning, 75 nightly). updated at bedside by Dr. De León. CPAP trials as tolerated. Continue vancomycin. Awaiting placement. 12/25: Continue CPAP as tolerated, added gasx for distention. Continue supportive care 12/26: Patient failed PSV this AM. no acute events overnight. 12/27: GI re-consulted due to abdominal distention. No acute events reported overnight. CPAP trials as tolerated. Dr. Mckenna will get a KUB to rule out possible obstruction. 12/28: KUB shows no acute process, CXR shows improvement. CPAP trials as tolerated. 12/29: CT Abd/pelvis noted with moderated bilateral pleural effusion, anasarca, and ascites. X1dose of IV lasix administered. D/w CCM and GI orders plan for thora and paracentesis by IR. Will also start patient on aldactone Qday. Patient is tolerating trickle feeds this am, continue TF and BR adjusted for constipation. Plan of care was discussed with patient and her at the bedside. Thorough discussion on patient's overall poor prognosis and that pat ient will most likely be vent dependent. Patient's voiced understanding of the info given. All questions and concerns were voiced at this time. 12/30: Patient did not tolerate thoracentesis in IR yesterday due to change in LOC and hypoxia. Plan for possible bedside thoracentesis and paracentesis today. Patient remains afebrile. Patient required pattern setter IV abx therapy [id number] left, orders placed for a PICC. Patient remains with sign. Piting edema and anasarca, X1 does of PO Zaroxolyn and 2m of IV lasix given. Electrolytes repleted, repeat lab in the am. 12/31: Tolerated Rt. thoracentesis at the bedside yesterday, 1.4L removed. Patient remains stable on the vent this am, tolerating CPAP today PS dropped to 14. Recent CXR noted, left pleural effusion improved. Patient tolerated gentle diurese yesterday, good urine output reported. D/w CCM hold off on Left thoracentesis today, continue PO Aldactone and additonal zaroxolyn and IV lasix again today. F/u CXR in the am. 01/01: This am CXR noted with worsening bilateral pleural effusion. Patient is stable and tolerating PST this am, however PS is back up to 20 this am. BP is soft this am will hold off on IV diuretic for today, continue PO Aldactone. D/w CCM continue gentle diurese as tolerated. Will reassess in the am. Continue support care. 01/02: MARIA DEL CARMEN overnight. VSS this am, tolerating PST. X1dose of 25% IV Albumin following with 20mg IV Lasix today. Continue daily gentle diurese if hemodynamics tolerate it. Continue to monitor and replace electrolytes as needed 01/03: Abdominal distention and vomiting overnight, 600cc of gastric residual removed, TF held. KUB with no acute abnormality. Reglan added X2days, resume TF, and continue BR. Patient is tolerating PST this am. Hemodynamics remains stable, will continue gentle IV diurese. close monitoring to renal function and electrolytes. 01/04: Tolerating TF, nausea/vomiting resolved, last BM on 01/03. Continue Reglan X1 more day. Patient continue to tolerate PST. D/W CCM continue gentle diurese. F/U CXR in the am. Possible US thoracentesis tomorrow. 01/05: no acute events overnight. scheduled for thoracentesis today but procedure pushed to tomorrow. TF restarted and will be NPO post MN. 01/06: planned thoracentesis today. Working with CM for ltac/snf approval. 01/07: s/p thoracentesis 120 cc appears to have been removed. Pulm recommendations noted, agree with continued diuresis and weaning. Continued planning with CM for ltac/snf placement. 01/08: No new issues. Continue vent weaning per pulmonary. Continuing to work with CM for placement. 01/09: No new issues. Continue vent weaning per pulmonary. Continuing to work with CM for placement. Ordered BMP for tomorrow to check kidney function as patient is currently being diuresed. 01/10: No new issues. Continue vent weaning/diuresis as directed by pulmonary medicine.BMP demonstrates normal renal function and potassium. Sodium and Chloride consistent with prior labs. Will recheck BMP in 2 days. Placement continues to be an issue as patient has been denied at all facilities. Will reasses with CM on wednesday. 01/11: Emesis overnight. Do not suspect that she is obstructed as she had 2 BM reported. Will order Reglan prn, drop TF rate to goal of 30 cc/hr. Will continue to work on placement. 01/12: Per RN patient had reported that she was tired and did not want to persist in her current state of health. D/w patient Niraj at patient bedside and stated that I recommended the patient/family at least talk with hospice to get a better understanding of their care. He was agreeable. I spoke with Ms. Busby who will help set up referral for hospice service so that family can be educated and, if the patient chooses, can pursue this option. 01/13: Continue supportive care. Family discussing about hospice. Continue reinforcement and continue weaning as tolerated. Prognosis is guarded and poor. Patient is clinically stable to transfer to the next level of care has not required any escalation in management. Has been stable on the vent awake alert following commands. 01/14: [id number]. Considering abdominal distention tube feedings hold along with the fact that the patient vomited yesterday. Will obtain a CT abdomen and pelvis to further evaluate placement. Discussed with nursing staff. Awaiting to have a family conversation with the for goals of care discussion again. 01/15: Continue supportive care, tube feed was restarted yesterday and tolerated, will start on simethicone for gas control and management. Patient is clinically stable for all lower level of care and continued weaning from the ventilator to appropriate facility. Family still undecided about goals of care. We will also check labs intermittently. 01/16: Patient today went for Chest tube placement on the right side for recurrent pleural effusion, with the goal of evaluating to see if we can wean off the vent. She has remained on the vent and with some persistent anxiety. she continues to tolerate tube feed. Again poor prognosis discussed with family. 01/17: Status post chest tube, with output of approximately 1880 cc since placement. Will continue to work with pulmonology for vent weaning. 01/18: Only tolerated 1 hr of t piece trial yesterday per RT. Patient PaO2 50s on abg last night. Will continue to work with pulmonary medicine for vent weaning. abg, cbc, bmp, xr chest ordered for am. 01/19: On t piece trial this AM. labs reviewed. CXR reviewed and appears stable with no new changes. AB.42/47.8/112.3/30.9. Will follow pulmonary recommendations and plan to continue to wean off of vent. 01/20: Per CM, [facility] declined patient admission as there are T stated the patient was not amenable from the vent. Yesterday patient had tolerated T-piece trial for approximately 12 hours. Today patient only tolerated for 45 minutes. Had desatted and stated that she was in pain during today's trial. Output yesterday from chest tube 1000 cc. Today it is 100 cc thus far. Will obtain chest x-ray tomorrow. 01/21: XR chest demonstrate mild improvement in pulmonary edema. Chest tube OP: 400 cc on 01/20 and 450 cc thus far today. On CPAP trial this am. Hopefully patient can eventually be weaned off of vent. Placement continues to be a challenge as patient has been denied at all facilities thus far, working with CM who has been in frequent contact with [facility]. 01/22: Yesterday the patient had lasted approximately 10 hours on T-piece trial. Output from chest tube approximately 525 cc yesterday. Thus far today patient has had 400 cc. Will follow with pulmonology regarding overall plan for chest tube and weaning patient off ventilator. 01/23: chest tube output 838 cc. Follow pulmonology plan re: chest tube and vent weaning. Placement remains challenging. 01/24: Very fatigue on t - piece trial yesterday afternoon, placed on full MV support. Will re-attempt today poss. Patient will complete Vancomycin course for MRSA tx on Friday 01/26. She has been afebrile sine 01/02. Current barriers to placement are weaning patient off of ventilator and removing chest tube as thus far all facilities have declined the patient. 01/25: AM CXR shows worsening pulmonary edema. On t-piece trial this AM. Patient still continues to have output from chest tube. Will follow pulmonary recs today. 01/26: Difficulty breathing this AM. Chest tube OP approx 1L yesterday. Ordered Albumin due to hypotension noted this AM. Lasix 20 mg IV in addition to po lasix ordered for pulmonary edema. Labs ordered. Assessment and Plan Neuro : Anxiety, chronic pain -Neurology consulted, appreciate recommendations -CT brain showed no acute events -EEG interpreted as abnormal record due to diffuse slowing noted throughout the recording, suggestive of encephalopathic process and/or drug effect, possibilities of postictal state cannot be totally excluded. Clinical correlation is in order -MRI brain not obtained-> patient has metal in her body -Repeat CT head with no acute findings -Reorientation as needed -Ammonia 42, B12 1823, TSH 1.5 -BuSpar, Seroquel, [place], gabapentin -prn xanax and Dilaudid Cardio: Acute Heart failure with reduced EF, h/o chronic heart block s/p PPM, HTN, CAD s/p PCI (2004), Moderate pulmonary HTN, cardiomyopathy -s/p vasopressor support with levophed -11/04 echocardiogram shows EF 30 to 35%, Moderate pulmonary HTN RVSP 49 -3/ echo with 35-40% EF -Cardiology consulted, appreciate recommendations -Continue beta-charleen and statin therapy -Midodrine (titrate as needed) -Not on aspirin due to allergy -Blood pressure monitoring per protocol -As needed nitroglycerin Resp: Acute hypoxic respiratory failure secondary to bilateral pneumonia, recurrent bilateral pleural effusion s/p rt sided chest tube. Right pneumothorax (resolved). -COVID-19 PCR negative -Intubated on 11/06 with 6.00 ETT at 18 at the lip and changed over bougie on 11/11-7.50 ETT at 20 at the lip -See RT notes for titration -PSV as tolerated -Surgery consult for trach -Received trach/PEG on 11/26 -S/p bedside bronchoscopy on 11/11 complicated by pneumothorax -S/p chest tube placement for right pneumothorax and dislodgment by patient on 11/15 -ABG/CXR per CCM -VAP bundle -Right chest wall ultrasound showed pleural effusion s/p chest tube -12/11 US thoracentesis removed 1L fluid -12/29 US thoracentesis removed 1.4L fluid -01/06 thoracentesis planned -01/16 right-sided chest tube placed by IR -SPO2 monitoring GI: S/p GI bleed, duodenal ulcer, transaminitis -GI consulted, appreciate recommendations-signed off -Nutrition consult for tube feeding, currently on nepro TF 45 cc/hr, dropped to 30 cc/hr due to concerns for emesis. -BR: Senokot -s/p peg 11/26 -H2 charleen -Carafate -24-hour +428 ml -10/2021 Gastric occult positive -> EGD-> duodenal ulcer -12/14 occult stool positive - reglan prn. : Urinary retention (resolved), hyponatremia, hypochloremia -Strict intake and output -Trend BMP ID: Septic shock (POA-resolved), bilateral pneumonia, MRSA bacteremia/pna -Infectious disease consulted, appreciate recommendations -COVID-19 PCR negative -Presented with fevers, leukocytosis and hypotension -11/04 blood cultures positive with a group B strep bacteremia 12/19 however repeat blood cultures on the with no growth to date -Echo showed no evidence of vegetation -repeat echo showed EF 35-40 % with no vegetations -ABX therapy: IV vancomycin for 4 weeks (12/16-01/26) -Monitor WBC and fever curve -Bedside bronchoscopy for mucous plug on CXR 11/11 -f/u blood cultures Heme: Acute DVT in the right external iliac vein, common femoral vein, superior aspect of femoral vein, Acute microcytic anemia -Evidenced on bilateral upper lower extremity ultrasound -S/p 7 unit PRBC -Trend CBC -Transfuse for hemoglobin less than 7 -heparin gtt dc d/t anemia -S/p IVC filter Endo: h/o DM and hypothyroidism -Continue home Synthroid -SSI -Accu-Cheks every 6 -Avoid hypoglycemia The high probability of a clinically significant, sudden or life threatening deterioration of the [multi] system(s) required my full and direct attention, intervention and personal management. The aggregate critical care time was [60] minutes. This time is in addition to time spent performing reported procedures but includes the following: [x] Data Review and interpretation [x] Patient assessment and monitoring of vital signs [x] Documentation [x] Medication orders and management History Interval history: I saw and examined the patient at bedside. C/o shorntess of breath this AM. VSS. Sat 94%. Currently on full MV support. Hospitalist Physical - Physical exam Narrative exam: Physical Exam: VITAL SIGNS: Reviewed. GENERAL: The patient appears normally developed, Vital signs as documented. Frail appearing elderly woman. HEAD: No signs of head trauma. EYES: Pupils are equal. Extraocular motions intact. EARS: Hearing grossly intact. MOUTH: Oropharynx is normal. NECK: No adenopathy, no JVD. CHEST: Bl rhonchi. rt sided chest tube in place. CARDIAC: Regular rate and rhythm. S1 and S2, without murmurs, gallops, or rubs. VASCULAR: No Edema. Peripheral pulses normal and equal in all extremities. ABDOMEN: Soft, non tender and non distended. No rebound or guarding, and no masses palpated. Bowel Sounds normal. MUSCULOSKELETAL: Good range of motion of all major joints. Extremities without clubbing, cyanosis or edema. NEUROLOGIC EXAM: Alert and oriented x 4. no focal sensory or strength deficits. PSYCHIATRIC: anxious appearing SKIN: detail exam as documented in skin assessment - Constitutional Vitals: Temp Pulse Resp BP Pulse Ox 98.6 F 67 17 93/42 100 01/26/22 08:00 01/26/22 08:00 01/26/22 05:00 01/26/22 05:00 01/26/22 05:00 General appearance: Present: no acute distress HEART Score - HEART Score Troponin: Troponin T 0.078 ng/mL (0.00-0.029) H 01/15/22 Unknown Results - Labs CBC & Chem 7: 01/26/22 10:16 01/26/22 10:16 Labs: Laboratory Last Values WBC 10.1 K/mm3 (4.5-11.0) 01/19/22 04:50 RBC 3.14 M/mm3 (3.65-5.03) L 01/19/22 04:50 Hgb 8.4 gm/dl (10.1-14.3) L 01/19/22 04:50 Hct 26.0 % (30.3-42.9) L 01/19/22 04:50 MCV 83 fl (79-97) 01/19/22 04:50 MCH 27 pg (28-32) L 01/19/22 04:50 MCHC 32 % (30-34) 01/19/22 04:50 RDW 18.2 % (13.2-15.2) H 01/19/22 04:50 Plt Count 222 K/mm3 (140-440) 01/19/22 04:50 Lymph % (Auto) 28.2 % (13.4-35.0) 01/19/22 04:50 Mobile % (Auto) 5.3 % (0.0-7.3) 01/19/22 04:50 Eos % (Auto) 3.8 % (0.0-4.3) 01/19/22 04:50 Baso % (Auto) 0.8 % (0.0-1.8) 01/19/22 04:50 Lymph # (Auto) 2.8 K/mm3 (1.2-5.4) 01/19/22 04:50 Mobile # (Auto) 0.5 K/mm3 (0.0-0.8) 01/19/22 04:50 Eos # (Auto) 0.4 K/mm3 (0.0-0.4) 01/19/22 04:50 Baso # (Auto) 0.1 K/mm3 (0.0-0.1) 01/19/22 04:50 Add Manual Diff Complete 01/19/22 04:50 Total Counted 100 01/15/22 14:36 Seg Neutrophils % 61.9 % (40.0-70.0) 01/19/22 04:50 Seg Neuts % (Manual) 82.0 % (40.0-70.0) H 01/15/22 14:36 Band Neutrophils % 0 % 01/15/22 14:36 Lymphocytes % (Manual) 11.0 % (13.4-35.0) L 01/15/22 14:36 Reactive Lymphs % (Man) 0 % 01/15/22 14:36 Monocytes % (Manual) 5.0 % (0.0-7.3) 01/15/22 14:36 Eosinophils % (Manual) 1.0 % (0.0-4.3) 01/15/22 14:36 Basophils % (Manual) 1.0 % (0.0-1.8) 01/15/22 14:36 Metamyelocytes % 0 % 01/15/22 14:36 Myelocytes % 0 % 01/15/22 14:36 Promyelocytes % 0 % 01/15/22 14:36 Blast Cells % 0 % 01/15/22 14:36 Nucleated RBC % Not Reportable 01/15/22 14:36 Seg Neutrophils # 6.2 K/mm3 (1.8-7.7) 01/19/22 04:50 Seg Neutrophils # Man 8.8 K/mm3 (1.8-7.7) H 01/15/22 14:36 Band Neutrophils # 0.0 K/mm3 01/15/22 14:36 Lymphocytes # (Manual) 1.2 K/mm3 (1.2-5.4) 01/15/22 14:36 Abs React Lymphs (Man) 0.0 K/mm3 01/15/22 14:36 Monocytes # (Manual) 0.5 K/mm3 (0.0-0.8) 01/15/22 14:36 Eosinophils # (Manual) 0.1 K/mm3 (0.0-0.4) 01/15/22 14:36 Basophils # (Manual) 0.1 K/mm3 (0.0-0.1) 01/15/22 14:36 Metamyelocytes # 0.0 K/mm3 01/15/22 14:36 Myelocytes # 0.0 K/mm3 01/15/22 14:36 Promyelocytes # 0.0 K/mm3 01/15/22 14:36 Blast Cells # 0.0 K/mm3 01/15/22 14:36 WBC Morphology Not Reportable 01/15/22 14:36 Hypersegmented Neuts Not Reportable 01/15/22 14:36 Hyposegmented Neuts Not Reportable 01/15/22 14:36 Hypogranular Neuts Not Reportable 01/15/22 14:36 Smudge Cells Not Reportable 01/15/22 14:36 Toxic Granulation Not Reportable 01/15/22 14:36 Toxic Vacuolation Not Reportable 01/15/22 14:36 Dohle Bodies Not Reportable 01/15/22 14:36 Pelger-Huet Anomaly Not Reportable 01/15/22 14:36 Irina Rods Not Reportable 01/15/22 14:36 Platelet Estimate Consistent w auto 01/15/22 14:36 Clumped Platelets Not Reportable 01/15/22 14:36 Plt Clumps, EDTA Not Reportable 01/15/22 14:36 Large Platelets Not Reportable 01/15/22 14:36 Giant Platelets Not Reportable 01/15/22 14:36 Platelet Satelliting Not Reportable 01/15/22 14:36 Plt Morphology Comment Not Reportable 01/15/22 14:36 RBC Morphology Not Reportable 01/15/22 14:36 Dimorphic RBCs Not Reportable 01/15/22 14:36 Polychromasia Not Reportable 01/15/22 14:36 Hypochromasia Not Reportable 01/15/22 14:36 Poikilocytosis Not Reportable 01/15/22 14:36 Anisocytosis 1+ 01/15/22 14:36 Microcytosis Not Reportable 01/15/22 14:36 Macrocytosis Not Reportable 01/15/22 14:36 Spherocytes Not Reportable 01/15/22 14:36 Pappenheimer Bodies Not Reportable 01/15/22 14:36 Sickle Cells Not Reportable 01/15/22 14:36 Target Cells Not Reportable 01/15/22 14:36 Tear Drop Cells Not Reportable 01/15/22 14:36 Ovalocytes Not Reportable 01/15/22 14:36 Helmet Cells Not Reportable 01/15/22 14:36 [place] Bodies Not Reportable 01/15/22 14:36 [place] Rings Not Reportable 01/15/22 14:36 [place] Cells Not Reportable 01/15/22 14:36 Bite Cells Not Reportable 01/15/22 14:36 Crenated Cell Not Reportable 01/15/22 14:36 Elliptocytes Not Reportable 01/15/22 14:36 Acanthocytes (Spur) Not Reportable 01/15/22 14:36 Rouleaux Not Reportable 01/15/22 14:36 Hemoglobin C Crystals Not Reportable 01/15/22 14:36 Schistocytes Not Reportable 01/15/22 14:36 Malaria parasites Not Reportable 01/15/22 14:36 Godfrey Bodies Not Reportable 01/15/22 14:36 Hem Pathologist Commnt No 01/15/22 14:36 PT 16.9 Sec. (12.2-14.9) H 01/06/22 04:06 INR 1.23 (0.87-1.13) H 01/06/22 04:06 APTT 29.2 Sec. (24.2-36.6) 11/26/21 05:00 D-Dimer 2655.00 ng/mlDDU (0-234) H 11/11/21 04:28 ABG pH 7.488 pH Units (7.350-7.450) H 01/25/22 12:20 ABG pCO2 38.2 mm Hg 01/25/22 12:20 ABG pO2 58.9 mm Hg (80.0-90.0) L 01/25/22 12:20 ABG HCO3 28.3 mmol/L (20.0-26.0) H 01/25/22 12:20 ABG O2 Saturation 94.9 % (95.0-99.0) L 01/25/22 12:20 ABG O2 Content 11.4 (0.0-44) 01/25/22 12:20 ABG Base Excess 4.7 mmol/L (-2.0-3.0) H 01/25/22 12:20 ABG Hemoglobin 8.7 gm/dl (12.0-16.0) L 01/25/22 12:20 ABG Carboxyhemoglobin 1.8 % (0.0-5.0) 01/25/22 12:20 ABG Methemoglobin 0.5 % (0.0-1.5) 01/25/22 12:20 Oxyhemoglobin 92.7 % (95.0-99.0) L 01/25/22 12:20 FiO2 35 % 01/25/22 12:20 Sodium 134 mmol/L (137-145) L 01/19/22 04:50 Potassium 3.9 mmol/L (3.6-5.0) 01/19/22 04:50 Chloride 95.4 mmol/L (98-107) L 01/19/22 04:50 Carbon Dioxide 29 mmol/L (22-30) 01/19/22 04:50 Anion Gap 14 mmol/L 01/19/22 04:50 BUN 28 mg/dL (7-17) H 01/19/22 04:50 Creatinine 0.6 mg/dL (0.6-1.2) 01/19/22 04:50 Estimated GFR > 60 ml/min 01/19/22 04:50 BUN/Creatinine Ratio 47 % 01/19/22 04:50 Glucose 100 mg/dL (65-100) 01/19/22 04:50 POC Glucose 130 mg/dL (70-105) H 01/26/22 05:59 Lactic Acid 3.70 mmol/L (0.7-2.0) H* 11/03/21 22:32 Calcium 8.7 mg/dL (8.4-10.2) 01/19/22 04:50 Phosphorus 3.70 mg/dL (2.5-4.5) 01/19/22 04:50 Magnesium 1.80 mg/dL (1.7-2.3) 01/19/22 04:50 Ferritin 52.6 ng/mL (10.0-200.0) 11/05/21 06:11 Total Bilirubin 0.50 mg/dL (0.1-1.2) 11/17/21 05:56 Direct Bilirubin < 0.2 mg/dL (0-0.2) 11/11/21 04:28 Indirect Bilirubin 0.1 mg/dL 11/11/21 04:28 AST 36 units/L (5-40) 11/17/21 05:56 ALT 47 units/L (7-56) 11/17/21 05:56 Alkaline Phosphatase 107 units/L (35-129) 11/17/21 05:56 Ammonia 42.0 umol/L (25-60) 11/10/21 14:08 Lactate Dehydrogenase 187 units/L (91-180) H 11/05/21 06:11 Troponin T 0.078 ng/mL (0.00-0.029) H 01/15/22 Unknown C-Reactive Protein 22.20 mg/dL (0.00-1.30) H 11/05/21 06:11 NT-Pro-B Natriuret Pep 7895 pg/mL (0-900) H 11/03/21 22:32 Total Protein 5.1 g/dL (6.3-8.2) L 11/17/21 05:56 Albumin 2.2 g/dL (3.9-5) L 11/17/21 05:56 Albumin/Globulin Ratio 0.8 % 11/17/21 05:56 Triglycerides 72 mg/dL (2-149) 01/15/22 21:07 Cholesterol 103 mg/dL (50-199) 01/15/22 21:07 LDL Cholesterol Direct 44 mg/dL (50-130) L 01/15/22 21:07 HDL Cholesterol 46 mg/dL (40-59) 01/15/22 21:07 Cholesterol/HDL Ratio 2.23 % 01/15/22 21:07 Vitamin B12 1823 pg/mL (211-911) H 11/10/21 14:08 TSH 1.510 mlU/mL (0.270-4.200) 11/10/21 14:08 Urine Color Shamika (Yellow) 01/23/22 09:36 Urine Turbidity Turbid (Clear) 01/23/22 09:36 Urine pH 7.0 (5.0-7.0) 01/23/22 09:36 Ur Specific [place] 1.011 (1.003-1.030) 01/23/22 09:36 Urine Protein <15 mg/dl mg/dL (Negative) 01/23/22 09:36 Urine Glucose (UA) Neg mg/dL (Negative) 01/23/22 09:36 Urine Ketones Neg mg/dL (Negative) 01/23/22 09:36 Urine Blood Sm (Negative) 01/23/22 09:36 Urine Nitrite Neg (Negative) 01/23/22 09:36 Urine Bilirubin Neg (Negative) 01/23/22 09:36 Urine Urobilinogen 2.0 mg/dL (<2.0) 01/23/22 09:36 Ur Leukocyte Esterase Lg (Negative) 01/23/22 09:36 Urine WBC (Auto) 16.0 /HPF (0.0-6.0) H 01/23/22 09:36 Urine RBC (Auto) 32.0 /HPF (0.0-6.0) 01/23/22 09:36 U Epithel Cells (Auto) 1.0 /HPF (0-13.0) 01/23/22 09:36 Urine Bacteria (Auto) 4+ /HPF (Negative) 01/23/22 09:36 Urine Mucus Few /HPF 01/23/22 09:36 Urine Yeast (Budding) 3+ /HPF 01/23/22 09:36 Urine Sperm Few /HPF (AFF[employer]ETING COORDINATOR) 01/23/22 09:36 Fluid Type Pleural 01/06/22 13:40 Fluid Color Yellow 01/06/22 13:40 Fluid Appearance Hazy 01/06/22 13:40 Fluid WBC 273 /mm3 01/06/22 13:40 Fluid RBC 45 /mm3 01/06/22 13:40 Fluid Seg Neutrophils 47.0 % 01/06/22 13:40 Fluid Lymphocytes 22.0 % 01/06/22 13:40 Fluid Monocytes 10.0 % 01/06/22 13:40 Fluid Eosinophils 19.0 % 01/06/22 13:40 Fluid Basophils 2.0 % 01/06/22 13:40 Fluid Glucose 96 mg/dL (40-70) H 01/06/22 13:40 Fluid Total Protein < 3.0 (15.0-45.0) L 01/06/22 13:40 Fluid LDH 149 01/06/22 13:40 Vancomycin Trough 11.8 ug/mL (5.0-20.0) 01/22/22 10:14 Random Vancomycin 10.5 ug/mL (0-40.0) 01/04/22 05:00 Coronavirus (PCR) Negative (Negative) 11/10/21 08:30 Blood Type O POSITIVE 12/14/21 10:30 Antibody Screen Negative 12/14/21 10:30 Crossmatch See Detail 12/14/21 10:30 Microbiology: Microbiology 01/23/22 09:36 Urine,Clean Catch Urine Culture - Final Enterococcus Faecalis Gamble/IV: Voiding Method External Female Catheter Active Medications - Current Medications Current Medications: Generic Name Dose Route Start Last Admin Trade Name Freq PRN Reason Stop Dose Admin Acetaminophen 650 mg 12/14/21 04:12 01/26/22 03:19 Acetaminophen 325 Mg/10.15 Ml Oral Liqd Unit Dose FEEDTUBE 650 mg Q6H PRN Administration Non Cardiac Pain or Temp>100.5 Hydrocodone Bitart/Acetaminophen 1 each 11/21/21 10:00 01/26/22 08:36 Hydrocodone/Acetaminophen 10-325mg Tab FEEDTUBE 1 each TID YOSSI Administration Alprazolam 0.25 mg 01/22/22 03:00 01/26/22 03:19 Alprazolam 0.5 Mg Tab FEEDTUBE 0.25 mg Q8H PRN Administration Agitation Lipase/Protease/Amylase 1 each 11/08/21 11:09 Lipase 10,500/Protease 25,000/Amylase 43,750 (Units) Dr Lema FEEDTUBE PRN PRN For Clogged Feeding Tube Buspirone HCl 7.5 mg 12/30/21 10:00 01/25/22 21:53 Buspirone 5 Mg Tab FEEDTUBE 7.5 mg BID YOSSI Administration Dextrose 50 ml 01/16/22 14:00 Dextrose 50% In Water (25gm) 50 Ml Syringe IV Q30MIN PRN Hypoglycemia Protocol Docusate Sodium 100 mg 12/30/21 10:00 01/25/22 21:52 Docusate Sodium 100 Mg/10 Ml Oral Liqd FEEDTUBE 100 mg BID YOSSI Administration Furosemide 20 mg 01/08/22 10:00 01/25/22 10:43 Furosemide 20 Mg Tab PO 20 mg QDAY YOSSI Administration Gabapentin 100 mg 01/22/22 10:00 01/25/22 10:43 Gabapentin 500 Mg/10 Ml Oral Liqd FEEDTUBE 100 mg QDAY YOSSI Administration Hydrophilic Ointment 1 applic 11/06/21 04:02 Lip Therapy Vaseline TP Q2HR PRN Dry Lips Vancomycin HCl 1 gm in 250 mls @ 166.667 mls/hr 01/04/22 10:00 01/24/22 10:04 Vancomycin/Ns 1 Gm/250 Ml IV 01/26/22 11:29 166.667 mls/hr Q48H YOSSI Administration Lansoprazole 30 mg 11/24/21 22:00 01/25/22 21:54 Lansoprazole 30 Mg Solutab FEEDTUBE 30 mg BID YOSSI Administration Levothyroxine Sodium 125 mcg 12/31/21 06:00 01/26/22 05:00 Levothyroxine 125 Mcg Tab FEEDTUBE 125 mcg DAILY@0600 YOSSI Administration Melatonin 5 mg 12/05/21 22:00 01/25/22 21:53 Melatonin 5 Mg Tab PO 5 mg QHS YOSSI Administration Metoclopramide HCl 10 mg 01/11/22 13:25 01/21/22 21:43 Metoclopramide 10 Mg/2 Ml Inj IV 10 mg Q6H PRN Administration Nausea And Vomiting Metoprolol Tartrate 6.25 mg 12/30/21 10:00 01/25/22 21:53 Metoprolol Tartrate 25 Mg Tab FEEDTUBE 6.25 mg BID YOSSI Administration Midodrine 10 mg 01/21/22 08:00 01/26/22 08:36 Midodrine 5 Mg Tab FEEDTUBE 10 mg TID@0800,1200,1600 YOSSI Administration Multi-Ingred Cream/Lotion/Oil/Oint 1 applic 11/06/21 04:02 Mineral Oil/Petrolatum, White Ophth Oint 3.5 Gm OU Q4HR PRN Dry Eye(s) Ondansetron HCl 4 mg 12/05/21 10:00 01/20/22 22:10 Ondansetron 4 Mg/2 Ml Inj IV 4 mg Q8H PRN Administration Nausea And Vomiting Polyethylene Glycol 17 gm 12/30/21 10:00 01/25/22 10:45 Polyethylene Glycol 3350 17 Gm Powder FEEDTUBE Not Given QDAY [facility] Pravastatin Sodium 20 mg 12/30/21 22:00 01/25/22 21:53 Pravastatin 20 Mg Tab FEEDTUBE 20 mg QHS YOSSI Administration Quetiapine Fumarate 25 mg 12/30/21 10:00 01/25/22 10:44 Quetiapine 25 Mg Tab FEEDTUBE 25 mg QAM YOSSI Administration Quetiapine Fumarate 50 mg 12/30/21 22:00 01/25/22 21:54 Quetiapine 25 Mg Tab FEEDTUBE 50 mg QHS YOSSI Administration Senna 17.6 mg 12/29/21 11:00 01/25/22 21:53 Sennosides Oral Liqd 8.8 Mg/5 Ml Oral Liqd FEEDTUBE 17.6 mg Q12HR YOSSI Administration Simethicone 80 mg 01/15/22 15:06 01/15/22 21:10 Simethicone 80 Mg Chew Tab PO 80 mg PC PRN Administration Gas pain Simple Syrup 15 ml 11/08/21 11:09 Simple Syrup 15 Ml FEEDTUBE PRN PRN Hypoglycemia Simple Syrup 30 ml 11/08/21 11:09 Simple Syrup 15 Ml FEEDTUBE PRN PRN Hypoglycemia Sodium Bicarbonate 325 mg 11/08/21 11:09 01/09/22 20:25 Sodium Bicarbonate 325 Mg Tab FEEDTUBE 325 mg PRN PRN Administration For Clogged Feeding Tube Sodium Chloride 10 ml 11/04/21 10:00 01/25/22 21:55 Sodium Chloride 0.9% 10 Ml Flush Syringe IV 10 ml BID YOSSI Administration Sodium Chloride 10 ml 11/04/21 02:03 01/09/22 06:35 Sodium Chloride 0.9% 10 Ml Flush Syringe IV 10 ml PRN PRN Administration LINE FLUSH Spironolactone 25 mg 12/30/21 10:00 01/25/22 10:44 Spironolactone 25 Mg Tab FEEDTUBE 25 mg QDAY YOSSI Administration Sucralfate 1 gm 12/30/21 12:00 01/26/22 05:00 Sucralfate 1 Gm/10 Ml Oral Liqd FEEDTUBE 1 gm Q6HR YOSSI Administration Trazodone HCl 50 mg 12/04/21 22:00 01/25/22 21:54 Trazodone 50 Mg Tab PO 50 mg QHS YOSSI Administration Nutrition/Malnutrition Assess - Dietary Evaluation Nutrition/Malnutrition Findings: Nutrition Notes Start: 11/04/21 17:16 Freq: Status: Active Protocol: Document 01/19/22 12:15 [facility] (Rec: 01/19/22 12:21 COUNT INCLUDES THE [facility] [id number]) Nutrition Notes Initial or Follow up Reassessment Current Diagnosis Coronary Artery Disease, Diabetes,Hypertension,Heart Failure,Respiratory Failure Other Pertinent Diagnosis Bilat pleural effusion Current Diet TF - Vital AF 1.2 at 35ml/hr Labs/Tests Na 134 BUN 28 Pertinent Medications Reviewed Height 5 ft Weight 62.3 kg [place] Body Weight (kg) 45.45 BMI 26.8 Weight Status Overweight Subjective/Other Information Observing TF infusing at 35ml/ hr; per, RN, pt tolerating TF. One BM reported this am. Pt on trach collar support at time of visit (10:50). Percent of energy/protein needs met: 84% energy and pro Burn Absent Trauma Absent #2 Nutrition Diagnosis Inadequate enteral nutrition infusion As Evidenced by Signs and Symptoms current TF rate provides at least 75% energy and pro needs Diagnosis Progress(for reassessment Resolved documentation) #1 Nutrition Diagnosis Inadequate oral intake Diagnosis Progress(for reassessment Continues documentation) Is patient on ventilator? No Is Patient Ambulatory and/or Out of Bed No REE-([facility]-conf[facility] to bed) [phone] Calculation Used for Recommendations [facility] Additional Notes Pro needs 1.2-2g/k-125g/ day Fluid needs 1ml/kcal Nutrition Intervention Nutrition Support: Continue Vital AF 1.2 at 35ml/ hr with 50ml water flush q4h. Kcal 1,008 Protein (gm) 63 Carbohydrates (gm) 45 Fat (gm) 45 Fluid (mL) 681 Fiber (gm) 4 Add Supplement/Snack (indicate name/kcal Jaswant BID /protein ) Provides kCal: 190 Provides Protein (gm) 5 Goal #1 TF tolerance Goal #2 TF to meet at least 75% energy and pro needs Goal #3 Wound healing Follow-Up By: 01/26/22 Additional Comments F/U: stable TF, wt, vent status, wound healing/Jaswant administration
[2022-01-26] MEDS ORDERED: ALBUMIN HUMAN 25% (25 GM/100 ML) INJ IV SCH (09:00)
[2022-01-26] MEDS: VANCOMYCIN/NS 1 GM/250 ML 1 GM/250 ML BAG IV SCH (09:43)
[2022-01-26] MEDS: METOPROLOL TARTRATE 25 MG TAB FEEDTUBE SCH ×2 (10:04→21:13)
[2022-01-26] MEDS: LANSOPRAZOLE 30 MG SOLUTAB FEEDTUBE SCH ×2 (10:04→21:13)
[2022-01-26] MEDS: SPIRONOLACTONE 25 MG TAB FEEDTUBE SCH (10:05)
[2022-01-26] MEDS: FUROSEMIDE 20 MG TAB PO SCH (10:06)
[2022-01-26] MEDS: busPIRone 5 MG TAB FEEDTUBE SCH ×2 (10:06→21:13)
[2022-01-26] MEDS: GABAPENTIN 500 MG/10 ML ORAL LIQD FEEDTUBE SCH (10:06)
[2022-01-26] MEDS: QUEtiapine 25 MG TAB FEEDTUBE SCH ×2 (10:06→21:13)
[2022-01-26] MEDS: POLYETHYLENE GLYCOL 3350 17 GM POWDER FEEDTUBE SCH (10:09)
[2022-01-26] MEDS: SENNOSIDES ORAL LIQD 8.8 MG/5 ML ORAL LIQD FEEDTUBE SCH ×2 (10:09→21:14)
[2022-01-26] MEDS: DOCUSATE SODIUM 100 MG/10 ML ORAL LIQD FEEDTUBE SCH ×2 (10:09→21:15)
[2022-01-26 10:39] LABS: Basophils # (Auto) 0.1 K/mm3 (0.0-0.1); Basophils % (Auto) 0.7 % (0.0-1.8); Eosinophils # (Auto) 0.6 K/mm3 (0.0-0.4); Eosinophils % (Auto) 4.5 % (0.0-4.3); Hematocrit 31.1 % (30.3-42.9); Hemoglobin 9.9 gm/dl (10.1-14.3); Lymphocytes # (Auto) 3.2 K/mm3 (1.2-5.4); Lymphocytes % (Auto) 25.6 % (13.4-35.0); Mean Corpuscular HGB Conc 32 % (30-34); Mean Corpuscular Volume 83 fl (79-97); Monocytes # (Auto) 0.6 K/mm3 (0.0-0.8); Monocytes % (Auto) 4.5 % (0.0-7.3); Platelet Count 269 K/mm3 (140-440); Red Blood Count 3.74 M/mm3 (3.65-5.03); Red Cell Distribution Width 18.3 % (13.2-15.2)
[2022-01-26 10:49] LABS: Blood Urea Nitrogen 29 mg/dL (7-17); Calcium 9.5 mg/dL (8.4-10.2); Hemolysis Index 4
[2022-01-26 11:02] LABS: BUN/Creatinine Ratio 48
[2022-01-26] MEDS ORDERED: FUROSEMIDE 20 MG/2 ML INJ IV SCH (12:30)
[2022-01-26] MEDS ORDERED: FUROSEMIDE 40 MG/4 ML INJ IV SCH (12:30)
--- NOTE | 2022-01-26 12:59 | Progress Note ---
Assessment and Plan Severe Sepsis POA vs septic shock- 11/03/2021 blood culture: 2 sets positive for GPC -Repeat cultures positive for MRSA Acute respiratory failure with hypoxia, s/p trach on MVS Acute microcytic anemia Bilateral pneumonia Left pleural effusion Cardiomyopathy EF 30-35% Moderate pulmonary HTN RVSP 49 Acute DVT s/p IVC Anemia Mild hyponatremia Daily SBTs as tolerated- place back on ATP in the morning Right chest tube to pleuravac- discussed with hospitalist service, she may benefit from PLurex catheter for intermittent drainage Continue to monitor hemoglobin and transfuse as clinically indicated to keep HgB>7g/dL Continue to optimize enteric nutritional support Maintain sleep-wake cycle PT/OT, increase activity - continue to titrate supplemental oxygen to keep SPO2 88-90% - VAP bundle addressed, aspiration precautions, HOB >40 - continue bronchodilators with pulmonary hygiene per RT - continue avoid nephrotoxins, renally dose all medications - Accuchecks with glycemic control per SSI (While critically ill target blood glucose of 140-180 mg/dL; avoid hypoglycemia) - continue to avoid benzodiazepines, reduce the possibility of delirium -trend temperature curve, trend WCC, - Maintenance of sleep-wake cycle, avoid delirium -Stress ulcer prophylaxis (Lansoprazole) -VTE prophyalxis- s/p IVC filter. No anticoagulation 11/18 EGD- Large cratered ulcer in the posterior duodenal bulb about 2 cm in ivania meter.Visible vessel present. Mild active oozing from the ulcer bed. A total of 3 injections were performed around the ulcer for a total of 2.5 cc of dilute epinephrine and hemostasis was obtained. -mobility, off loading and frequent turning to prevent pressure ulcer -continue with enteric nutritional support via PEG,at goal rate - Continue to monitor hemodynamics closely - continue other care per attending / other consultants COVID SPECIFIC INTERVENTIONS - Negative CONDITION: FAIR PROGNOSIS: GUARDED CODE STATUS: FULL CODE The high probability of a clinically significant, sudden or life-threatening deterioration of the [respiratory, cardiovascular and hematologic] system(s) required my full and direct attention, intervention and personal management. The aggregate critical care time was [33] minutes without overlap. Time includes spent on; [x] Data Review and interpretation [x] Patient assessment and monitoring of vital signs [x] Documentation [x] Medication orders and management Subjective Date of service: 01/26/22 Principal diagnosis: Septic shock; AHRF; Anemia; Pneumonia; pleural effusion; HFrEF; Pulm HTN Interval history: Follow up fro acute hypoxemic resp failure s/p tracheostomy to MVS ; Septic and cardiogenic shock; severe anemia; Patient seen and examined. Vitals, labs, medications, chart and imaging reviewed. Discussed with respiratory and nursing care staff. On full support, had tolerated 24 hours of ATP last week, but needed to be placed back on full support for hypoxemia Sleeping but rousable, at the bedside Objective Vital Signs - 12hr 01/26/22 01/26/22 01/26/22 01:00 02:00 03:00 Temperature Pulse Rate 60 60 74 Pulse Rate [ From Monitor] Respiratory 19 19 17 Rate Blood Pressure 98/43 98/43 107/49 O2 Sat by Pulse 99 99 99 Oximetry 01/26/22 01/26/22 01/26/22 03:36 04:00 05:00 Temperature 97.4 F L Pulse Rate 60 60 Pulse Rate [ 60 From Monitor] Respiratory 19 17 Rate Blood Pressure 138/66 93/42 O2 Sat by Pulse 100 100 Oximetry 01/26/22 01/26/22 01/26/22 06:00 08:00 09:06 Temperature 97.6 F Pulse Rate 60 67 78 Pulse Rate [ 62 From Monitor] Respiratory 19 16 22 Rate Blood Pressure 93/42 93/42 O2 Sat by Pulse 100 95 94 Oximetry 01/26/22 01/26/22 01/26/22 10:00 10:04 10:05 Temperature Pulse Rate 89 85 83 Pulse Rate [ From Monitor] Respiratory 18 Rate Blood Pressure 141/94 141/94 141/94 O2 Sat by Pulse 95 Oximetry 01/26/22 01/26/22 01/26/22 11:00 12:00 12:01 Temperature 98.0 F Pulse Rate 87 69 68 Pulse Rate [ 64 From Monitor] Respiratory 11 L 17 19 Rate Blood Pressure 129/90 129/90 O2 Sat by Pulse 92 96 84 Oximetry Constitutional: no acute distress, alert, other (trach to full support) Eyes: non-icteric ENT: oropharynx moist, other (+ Midline tracheostomy with minimal secretions) Neck: supple, no lymphadenopathy, no JVD Effort: normal, mildly labored Ascultation: Bilateral: diminished breath sounds, rhonchi, other (Right chest tu be) Percussion: Right: not dull, Left: dull (bases) Cardiovascular: regular rate and rhythm, other (S1,S2) Gastrointestinal: normoactive bowel sounds, soft, non-tender, non-distended (protuberant) Integumentary: normal Extremities: no cyanosis, pink and warm, pulses normal, edema (upper etremities), anasarca Neurologic: non-focal exam (grossly), pupils equal and round, CN II-XII normal Psychiatric: affect normal CBC and BMP: 01/26/22 10:16 01/26/22 10:16 ABG, PT/INR, D-dimer: ABG ABG pH 7.488 pH Units (7.350-7.450) H 01/25/22 12:20 ABG pCO2 38.2 mm Hg 01/25/22 12:20 ABG pO2 58.9 mm Hg (80.0-90.0) L 01/25/22 12:20 ABG O2 Saturation 94.9 % (95.0-99.0) L 01/25/22 12:20 PT/INR, D-dimer PT 16.9 Sec. (12.2-14.9) H 01/06/22 04:06 INR 1.23 (0.87-1.13) H 01/06/22 04:06 D-Dimer 2655.00 ng/mlDDU (0-234) H 11/11/21 04:28 Abnormal lab findings: Abnormal Labs 11/03/21 11/03/21 11/03/21 22:32 22:32 22:32 WBC 29.3 H RBC 2.93 L Hgb 6.1 L Hct 21.9 L MCV 75 L MCH 21 L MCHC 28 L RDW 19.7 H Plt Count Eos % (Auto) Eos # (Auto) Seg Neuts % (Manual) 97.0 H Lymphocytes % (Manual) 3.0 L Seg Neutrophils # Seg Neutrophils # Man 28.4 H Lymphocytes # (Manual) 0.9 L Monocytes # (Manual) PT 18.6 H INR 1.40 H D-Dimer ABG pH ABG pO2 ABG HCO3 ABG O2 Saturation ABG Base Excess ABG Hemoglobin Oxyhemoglobin Sodium Potassium Chloride Carbon Dioxide 20 L BUN 33 H Creatinine Glucose 119 H POC Glucose Lactic Acid Calcium 8.3 L Phosphorus Magnesium AST ALT Alkaline Phosphatase Lactate Dehydrogenase Troponin T 0.035 H C-Reactive Protein NT-Pro-B Natriuret Pep Total Protein Albumin LDL Cholesterol Direct 34 L Vitamin B12 Urine WBC (Auto) Fluid Glucose Fluid Total Protein Vancomycin Trough Crossmatch 11/03/21 11/03/21 11/03/21 22:32 22:32 23:57 WBC RBC Hgb Hct MCV MCH MCHC RDW Plt Count Eos % (Auto) Eos # (Auto) Seg Neuts % (Manual) Lymphocytes % (Manual) Seg Neutrophils # Seg Neutrophils # Man Lymphocytes # (Manual) Monocytes # (Manual) PT INR D-Dimer ABG pH ABG pO2 ABG HCO3 ABG O2 Saturation ABG Base Excess ABG Hemoglobin Oxyhemoglobin Sodium Potassium Chloride Carbon Dioxide BUN Creatinine Glucose POC Glucose Lactic Acid 3.70 H* Calcium Phosphorus Magnesium AST ALT Alkaline Phosphatase 139 H Lactate Dehydrogenase Troponin T C-Reactive Protein NT-Pro-B Natriuret Pep 7895 H Total Protein Albumin 3.5 L LDL Cholesterol Direct Vitamin B12 Urine WBC (Auto) Fluid Glucose Fluid Total Protein Vancomycin Trough Crossmatch See Detail 11/04/21 11/04/21 11/05/21 00:59 13:58 00:51 WBC 27.9 H RBC 3.28 L Hgb 7.3 L Hct 25.5 L MCV 78 L MCH 22 L MCHC 29 L RDW 19.1 H Plt Count Eos % (Auto) Eos # (Auto) Seg Neuts % (Manual) 96.0 H Lymphocytes % (Manual) 2.0 L Seg Neutrophils # Seg Neutrophils # Man 26.8 H Lymphocytes # (Manual) 0.6 L Monocytes # (Manual) PT INR D-Dimer ABG pH ABG pO2 ABG HCO3 ABG O2 Saturation ABG Base Excess ABG Hemoglobin Oxyhemoglobin Sodium Potassium Chloride Carbon Dioxide BUN Creatinine Glucose POC Glucose Lactic Acid Calcium Phosphorus Magnesium AST ALT Alkaline Phosphatase Lactate Dehydrogenase Troponin T 0.051 H D 0.032 H D C-Reactive Protein NT-Pro-B Natriuret Pep Total Protein Albumin LDL Cholesterol Direct Vitamin B12 Urine WBC (Auto) Fluid Glucose Fluid Total Protein Vancomycin Trough Crossmatch 11/05/21 11/05/21 11/05/21 06:11 06:11 06:11 WBC 31.8 H RBC 3.57 L Hgb 8.0 L Hct 27.7 L MCV 78 L MCH 22 L MCHC 29 L RDW 19.2 H Plt Count Eos % (Auto) Eos # (Auto) Seg Neuts % (Manual) 91.0 H Lymphocytes % (Manual) 4.5 L Seg Neutrophils # Seg Neutrophils # Man 28.9 H Lymphocytes # (Manual) Monocytes # (Manual) 1.1 H PT INR D-Dimer 1494.53 H ABG pH ABG pO2 ABG HCO3 ABG O2 Saturation ABG Base Excess ABG Hemoglobin Oxyhemoglobin Sodium Potassium Chloride Carbon Dioxide 19 L BUN 42 H Creatinine Glucose 115 H POC Glucose Lactic Acid Calcium Phosphorus Magnesium AST 43 H ALT Alkaline Phosphatase Lactate Dehydrogenase 187 H Troponin T C-Reactive Protein 22.20 H NT-Pro-B Natriuret Pep Total Protein 6.0 L Albumin 3.2 L LDL Cholesterol Direct Vitamin B12 Urine WBC (Auto) Fluid Glucose Fluid Total Protein Vancomycin Trough Crossmatch 11/05/21 11/05/21 11/06/21 06:11 12:15 00:30 WBC RBC Hgb Hct MCV MCH MCHC RDW Plt Count Eos % (Auto) Eos # (Auto) Seg Neuts % (Manual) Lymphocytes % (Manual) Seg Neutrophils # Seg Neutrophils # Man Lymphocytes # (Manual) Monocytes # (Manual) PT INR D-Dimer ABG pH ABG pO2 ABG HCO3 ABG O2 Saturation ABG Base Excess ABG Hemoglobin Oxyhemoglobin Sodium Potassium Chloride Carbon Dioxide BUN Creatinine Glucose POC Glucose 113 H 69 L Lactic Acid Calcium Phosphorus Magnesium AST ALT Alkaline Phosphatase Lactate Dehydrogenase Troponin T 0.033 H C-Reactive Protein NT-Pro-B Natriuret Pep Total Protein Albumin LDL Cholesterol Direct Vitamin B12 Urine WBC (Auto) Fluid Glucose Fluid Total Protein Vancomycin Trough Crossmatch 11/06/21 11/06/21 11/06/21 05:50 15:50 15:50 WBC 25.5 H RBC 3.62 L Hgb 8.0 L Hct 27.5 L MCV 76 L MCH 22 L MCHC 29 L RDW 19.6 H Plt Count Eos % (Auto) Eos # (Auto) Seg Neuts % (Manual) 92.0 H Lymphocytes % (Manual) 5.0 L Seg Neutrophils # Seg Neutrophils # Man 23.5 H Lymphocytes # (Manual) Monocytes # (Manual) PT INR D-Dimer ABG pH 7.305 L ABG pO2 ABG HCO3 15.8 L ABG O2 Saturation ABG Base Excess -9.6 L ABG Hemoglobin 8.6 L Oxyhemoglobin 94.6 L Sodium Potassium Chloride 113.9 H Carbon Dioxide 17 L BUN 56 H Creatinine Glucose 114 H POC Glucose Lactic Acid Calcium 7.9 L Phosphorus Magnesium AST 1410 H ALT 934 H Alkaline Phosphatase 142 H Lactate Dehydrogenase Troponin T C-Reactive Protein NT-Pro-B Natriuret Pep Total Protein 5.0 L Albumin 2.6 L LDL Cholesterol Direct Vitamin B12 Urine WBC (Auto) Fluid Glucose Fluid Total Protein Vancomycin Trough Crossmatch 11/07/21 11/07/21 11/07/21 03:30 04:50 08:07 WBC RBC Hgb Hct MCV MCH MCHC RDW Plt Count Eos % (Auto) Eos # (Auto) Seg Neuts % (Manual) Lymphocytes % (Manual) Seg Neutrophils # Seg Neutrophils # Man Lymphocytes # (Manual) Monocytes # (Manual) PT INR D-Dimer ABG pH ABG pO2 296.9 H ABG HCO3 18.1 L ABG O2 Saturation 99.5 H ABG Base Excess -5.9 L ABG Hemoglobin 7.6 L Oxyhemoglobin Sodium Potassium Chloride Carbon Dioxide BUN Creatinine Glucose POC Glucose 106 H 108 H Lactic Acid Calcium Phosphorus Magnesium AST ALT Alkaline Phosphatase Lactate Dehydrogenase Troponin T C-Reactive Protein NT-Pro-B Natriuret Pep Total Protein Albumin LDL Cholesterol Direct Vitamin B12 Urine WBC (Auto) Fluid Glucose Fluid Total Protein Vancomycin Trough Crossmatch 11/08/21 11/08/21 11/08/21 03:10 18:05 23:43 WBC RBC Hgb Hct MCV MCH MCHC RDW Plt Count Eos % (Auto) Eos # (Auto) Seg Neuts % (Manual) Lymphocytes % (Manual) Seg Neutrophils # Seg Neutrophils # Man Lymphocytes # (Manual) Monocytes # (Manual) PT INR D-Dimer ABG pH ABG pO2 127.4 H ABG HCO3 ABG O2 Saturation ABG Base Excess -3.4 L ABG Hemoglobin 7.4 L Oxyhemoglobin Sodium Potassium Chloride Carbon Dioxide BUN Creatinine Glucose POC Glucose 113 H 141 H Lactic Acid Calcium Phosphorus Magnesium AST ALT Alkaline Phosphatase Lactate Dehydrogenase Troponin T C-Reactive Protein NT-Pro-B Natriuret Pep Total Protein Albumin LDL Cholesterol Direct Vitamin B12 Urine WBC (Auto) Fluid Glucose Fluid Total Protein Vancomycin Trough Crossmatch 11/08/21 11/08/21 11/09/21 Unknown Unknown 02:00 WBC 14.5 H RBC 3.35 L Hgb 7.5 L 8.1 L Hct 25.4 L 27.6 L MCV 76 L 76 L MCH 23 L 22 L MCHC RDW 19.9 H 19.9 H Plt Count Eos % (Auto) Eos # (Auto) Seg Neuts % (Manual) Lymphocytes % (Manual) Seg Neutrophils # Seg Neutrophils # Man Lymphocytes # (Manual) Monocytes # (Manual) PT INR D-Dimer ABG pH ABG pO2 ABG HCO3 ABG O2 Saturation ABG Base Excess ABG Hemoglobin Oxyhemoglobin Sodium 154 H D Potassium 3.3 L Chloride 120.7 H Carbon Dioxide 20 L BUN 38 H Creatinine Glucose POC Glucose Lactic Acid Calcium 8.3 L Phosphorus Magnesium AST ALT Alkaline Phosphatase Lactate Dehydrogenase Troponin T C-Reactive Protein NT-Pro-B Natriuret Pep Total Protein Albumin LDL Cholesterol Direct Vitamin B12 Urine WBC (Auto) Fluid Glucose Fluid Total Protein Vancomycin Trough Crossmatch 11/09/21 11/09/21 11/09/21 02:00 02:31 05:12 WBC RBC Hgb Hct MCV MCH MCHC RDW Plt Count Eos % (Auto) Eos # (Auto) Seg Neuts % (Manual) Lymphocytes % (Manual) Seg Neutrophils # Seg Neutrophils # Man Lymphocytes # (Manual) Monocytes # (Manual) PT INR D-Dimer ABG pH 7.479 H ABG pO2 121.3 H ABG HCO3 ABG O2 Saturation ABG Base Excess ABG Hemoglobin 7.3 L Oxyhemoglobin Sodium Potassium Chloride 112.5 H Carbon Dioxide BUN 33 H Creatinine Glucose 161 H POC Glucose 135 H Lactic Acid Calcium Phosphorus Magnesium AST 251 H ALT 481 H Alkaline Phosphatase Lactate Dehydrogenase Troponin T C-Reactive Protein NT-Pro-B Natriuret Pep Total Protein 5.0 L Albumin 2.8 L LDL Cholesterol Direct Vitamin B12 Urine WBC (Auto) Fluid Glucose Fluid Total Protein Vancomycin Trough Crossmatch 11/09/21 11/09/21 11/09/21 11:33 16:32 23:28 WBC RBC Hgb Hct MCV MCH MCHC RDW Plt Count Eos % (Auto) Eos # (Auto) Seg Neuts % (Manual) Lymphocytes % (Manual) Seg Neutrophils # Seg Neutrophils # Man Lymphocytes # (Manual) Monocytes # (Manual) PT INR D-Dimer ABG pH ABG pO2 ABG HCO3 ABG O2 Saturation ABG Base Excess ABG Hemoglobin Oxyhemoglobin Sodium Potassium Chloride Carbon Dioxide BUN Creatinine Glucose POC Glucose 132 H 133 H 143 H Lactic Acid Calcium Phosphorus Magnesium AST ALT Alkaline Phosphatase Lactate Dehydrogenase Troponin T C-Reactive Protein NT-Pro-B Natriuret Pep Total Protein Albumin LDL Cholesterol Direct Vitamin B12 Urine WBC (Auto) Fluid Glucose Fluid Total Protein Vancomycin Trough Crossmatch 11/10/21 11/10/21 11/10/21 04:00 04:00 05:35 WBC 16.0 H RBC 3.61 L Hgb 8.0 L Hct 27.1 L MCV 75 L MCH 22 L MCHC RDW 20.4 H Plt Count Eos % (Auto) Eos # (Auto) Seg Neuts % (Manual) Lymphocytes % (Manual) Seg Neutrophils # Seg Neutrophils # Man Lymphocytes # (Manual) Monocytes # (Manual) PT INR D-Dimer ABG pH ABG pO2 ABG HCO3 ABG O2 Saturation ABG Base Excess ABG Hemoglobin Oxyhemoglobin Sodium 149 H Potassium Chloride 114.1 H Carbon Dioxide BUN 31 H Creatinine Glucose 148 H POC Glucose 132 H Lactic Acid Calcium 8.2 L Phosphorus Magnesium AST ALT Alkaline Phosphatase Lactate Dehydrogenase Troponin T C-Reactive Protein NT-Pro-B Natriuret Pep Total Protein Albumin LDL Cholesterol Direct Vitamin B12 Urine WBC (Auto) Fluid Glucose Fluid Total Protein Vancomycin Trough Crossmatch 11/10/21 11/10/21 11/10/21 11:31 14:08 15:35 WBC RBC Hgb Hct MCV MCH MCHC RDW Plt Count Eos % (Auto) Eos # (Auto) Seg Neuts % (Manual) Lymphocytes % (Manual) Seg Neutrophils # Seg Neutrophils # Man Lymphocytes # (Manual) Monocytes # (Manual) PT INR D-Dimer ABG pH ABG pO2 126.6 H ABG HCO3 ABG O2 Saturation ABG Base Excess ABG Hemoglobin 7.4 L Oxyhemoglobin Sodium Potassium Chloride Carbon Dioxide BUN Creatinine Glucose POC Glucose 147 H Lactic Acid Calcium Phosphorus Magnesium AST ALT Alkaline Phosphatase Lactate Dehydrogenase Troponin T C-Reactive Protein NT-Pro-B Natriuret Pep Total Protein Albumin LDL Cholesterol Direct Vitamin B12 1823 H Urine WBC (Auto) Fluid Glucose Fluid Total Protein Vancomycin Trough Crossmatch 11/10/21 11/11/21 11/11/21 17:53 00:55 04:28 WBC RBC Hgb Hct MCV MCH MCHC RDW Plt Count Eos % (Auto) Eos # (Auto) Seg Neuts % (Manual) Lymphocytes % (Manual) Seg Neutrophils # Seg Neutrophils # Man Lymphocytes # (Manual) Monocytes # (Manual) PT INR D-Dimer ABG pH ABG pO2 ABG HCO3 ABG O2 Saturation ABG Base Excess ABG Hemoglobin Oxyhemoglobin Sodium 149 H Potassium Chloride 112.2 H Carbon Dioxide BUN 34 H Creatinine Glucose 148 H POC Glucose 140 H 145 H Lactic Acid Calcium 7.9 L Phosphorus Magnesium AST 53 H ALT 203 H Alkaline Phosphatase Lactate Dehydrogenase Troponin T C-Reactive Protein NT-Pro-B Natriuret Pep Total Protein 4.9 L Albumin 2.6 L LDL Cholesterol Direct Vitamin B12 Urine WBC (Auto) Fluid Glucose Fluid Total Protein Vancomycin Trough Crossmatch 11/11/21 11/11/21 11/11/21 04:28 04:28 05:28 WBC 20.9 H RBC 3.47 L Hgb 7.5 L Hct 26.0 L MCV 75 L MCH 22 L MCHC 29 L RDW 21.6 H Plt Count 132 L Eos % (Auto) Eos # (Auto) Seg Neuts % (Manual) Lymphocytes % (Manual) Seg Neutrophils # Seg Neutrophils # Man Lymphocytes # (Manual) Monocytes # (Manual) PT INR D-Dimer 2655.00 H ABG pH ABG pO2 ABG HCO3 ABG O2 Saturation ABG Base Excess ABG Hemoglobin Oxyhemoglobin Sodium Potassium Chloride Carbon Dioxide BUN Creatinine Glucose POC Glucose 154 H Lactic Acid Calcium Phosphorus Magnesium AST ALT Alkaline Phosphatase Lactate Dehydrogenase Troponin T C-Reactive Protein NT-Pro-B Natriuret Pep Total Protein Albumin LDL Cholesterol Direct Vitamin B12 Urine WBC (Auto) Fluid Glucose Fluid Total Protein Vancomycin Trough Crossmatch 11/11/21 11/11/21 11/12/21 12:38 18:13 00:14 WBC RBC Hgb Hct MCV MCH MCHC RDW Plt Count Eos % (Auto) Eos # (Auto) Seg Neuts % (Manual) Lymphocytes % (Manual) Seg Neutrophils # Seg Neutrophils # Man Lymphocytes # (Manual) Monocytes # (Manual) PT INR D-Dimer ABG pH ABG pO2 ABG HCO3 ABG O2 Saturation ABG Base Excess ABG Hemoglobin Oxyhemoglobin Sodium Potassium Chloride Carbon Dioxide BUN Creatinine Glucose POC Glucose 137 H 108 H 137 H Lactic Acid Calcium Phosphorus Magnesium AST ALT Alkaline Phosphatase Lactate Dehydrogenase Troponin T C-Reactive Protein NT-Pro-B Natriuret Pep Total Protein Albumin LDL Cholesterol Direct Vitamin B12 Urine WBC (Auto) Fluid Glucose Fluid Total Protein Vancomycin Trough Crossmatch 11/12/21 11/12/21 11/12/21 05:40 06:24 11:12 WBC RBC Hgb Hct MCV MCH MCHC RDW Plt Count Eos % (Auto) Eos # (Auto) Seg Neuts % (Manual) Lymphocytes % (Manual) Seg Neutrophils # Seg Neutrophils # Man Lymphocytes # (Manual) Monocytes # (Manual) PT INR D-Dimer ABG pH 7.586 H ABG pO2 150.6 H ABG HCO3 27.2 H ABG O2 Saturation 99.1 H ABG Base Excess 5.2 H ABG Hemoglobin 7.5 L Oxyhemoglobin Sodium Potassium Chloride Carbon Dioxide BUN Creatinine Glucose POC Glucose 132 H 140 H Lactic Acid Calcium Phosphorus Magnesium AST ALT Alkaline Phosphatase Lactate Dehydrogenase Troponin T C-Reactive Protein NT-Pro-B Natriuret Pep Total Protein Albumin LDL Cholesterol Direct Vitamin B12 Urine WBC (Auto) Fluid Glucose Fluid Total Protein Vancomycin Trough Crossmatch 11/12/21 11/12/21 11/12/21 14:50 14:50 17:13 WBC 19.8 H RBC 3.27 L Hgb 7.1 L Hct 24.5 L MCV 75 L MCH 22 L MCHC 29 L RDW 22.3 H Plt Count Eos % (Auto) Eos # (Auto) Seg Neuts % (Manual) Lymphocytes % (Manual) Seg Neutrophils # Seg Neutrophils # Man Lymphocytes # (Manual) Monocytes # (Manual) PT INR D-Dimer ABG pH ABG pO2 ABG HCO3 ABG O2 Saturation ABG Base Excess ABG Hemoglobin Oxyhemoglobin Sodium 150 H Potassium 3.3 L Chloride 112.0 H Carbon Dioxide BUN 40 H Creatinine Glucose 151 H POC Glucose 121 H Lactic Acid Calcium 7.4 L Phosphorus 1.70 L Magnesium 1.40 L AST ALT Alkaline Phosphatase Lactate Dehydrogenase Troponin T C-Reactive Protein NT-Pro-B Natriuret Pep Total Protein Albumin LDL Cholesterol Direct Vitamin B12 Urine WBC (Auto) Fluid Glucose Fluid Total Protein Vancomycin Trough Crossmatch 11/12/21 11/13/21 11/13/21 23:19 05:34 06:30 WBC RBC Hgb Hct MCV MCH MCHC RDW Plt Count Eos % (Auto) Eos # (Auto) Seg Neuts % (Manual) Lymphocytes % (Manual) Seg Neutrophils # Seg Neutrophils # Man Lymphocytes # (Manual) Monocytes # (Manual) PT INR D-Dimer ABG pH ABG pO2 ABG HCO3 ABG O2 Saturation ABG Base Excess ABG Hemoglobin Oxyhemoglobin Sodium 149 H Potassium Chloride 60.0 L Carbon Dioxide BUN 40 H Creatinine Glucose 146 H POC Glucose 113 H 132 H Lactic Acid Calcium 7.3 L Phosphorus Magnesium 2.40 H AST ALT 72 H Alkaline Phosphatase Lactate Dehydrogenase Troponin T C-Reactive Protein NT-Pro-B Natriuret Pep Total Protein 5.2 L Albumin 2.2 L LDL Cholesterol Direct Vitamin B12 Urine WBC (Auto) Fluid Glucose Fluid Total Protein Vancomycin Trough Crossmatch 11/13/21 11/13/21 11/13/21 06:30 08:30 11:19 WBC 21.2 H RBC 3.12 L Hgb 6.8 L Hct 23.2 L MCV 74 L MCH 22 L MCHC 29 L RDW 22.2 H Plt Count 135 L Eos % (Auto) Eos # (Auto) Seg Neuts % (Manual) Lymphocytes % (Manual) Seg Neutrophils # Seg Neutrophils # Man Lymphocytes # (Manual) Monocytes # (Manual) PT INR D-Dimer ABG pH ABG pO2 ABG HCO3 ABG O2 Saturation ABG Base Excess ABG Hemoglobin Oxyhemoglobin Sodium Potassium Chloride Carbon Dioxide BUN Creatinine Glucose POC Glucose 136 H Lactic Acid Calcium Phosphorus Magnesium AST ALT Alkaline Phosphatase Lactate Dehydrogenase Troponin T C-Reactive Protein NT-Pro-B Natriuret Pep Total Protein Albumin LDL Cholesterol Direct Vitamin B12 Urine WBC (Auto) Fluid Glucose Fluid Total Protein Vancomycin Trough Crossmatch See Detail 11/13/21 11/14/21 11/14/21 18:21 00:01 04:46 WBC 20.0 H RBC 3.41 L Hgb 7.9 L Hct 26.8 L MCV MCH 23 L MCHC 29 L RDW 24.0 H Plt Count Eos % (Auto) Eos # (Auto) Seg Neuts % (Manual) Lymphocytes % (Manual) Seg Neutrophils # Seg Neutrophils # Man Lymphocytes # (Manual) Monocytes # (Manual) PT INR D-Dimer ABG pH ABG pO2 ABG HCO3 ABG O2 Saturation ABG Base Excess ABG Hemoglobin Oxyhemoglobin Sodium Potassium Chloride Carbon Dioxide BUN Creatinine Glucose POC Glucose 149 H 141 H Lactic Acid Calcium Phosphorus Magnesium AST ALT Alkaline Phosphatase Lactate Dehydrogenase Troponin T C-Reactive Protein NT-Pro-B Natriuret Pep Total Protein Albumin LDL Cholesterol Direct Vitamin B12 Urine WBC (Auto) Fluid Glucose Fluid Total Protein Vancomycin Trough Crossmatch 11/14/21 11/14/21 11/14/21 04:46 05:10 11:10 WBC RBC Hgb Hct MCV MCH MCHC RDW Plt Count Eos % (Auto) Eos # (Auto) Seg Neuts % (Manual) Lymphocytes % (Manual) Seg Neutrophils # Seg Neutrophils # Man Lymphocytes # (Manual) Monocytes # (Manual) PT INR D-Dimer ABG pH ABG pO2 ABG HCO3 ABG O2 Saturation ABG Base Excess ABG Hemoglobin Oxyhemoglobin Sodium 148 H Potassium Chloride 113.1 H Carbon Dioxide BUN 43 H Creatinine Glucose 140 H POC Glucose 132 H 133 H Lactic Acid Calcium 7.5 L Phosphorus Magnesium AST ALT Alkaline Phosphatase Lactate Dehydrogenase Troponin T C-Reactive Protein NT-Pro-B Natriuret Pep Total Protein Albumin LDL Cholesterol Direct Vitamin B12 Urine WBC (Auto) Fluid Glucose Fluid Total Protein Vancomycin Trough Crossmatch 11/14/21 11/14/21 11/14/21 16:14 17:48 23:23 WBC RBC Hgb Hct MCV MCH MCHC RDW Plt Count Eos % (Auto) Eos # (Auto) Seg Neuts % (Manual) Lymphocytes % (Manual) Seg Neutrophils # Seg Neutrophils # Man Lymphocytes # (Manual) Monocytes # (Manual) PT INR D-Dimer ABG pH ABG pO2 ABG HCO3 28.0 H ABG O2 Saturation ABG Base Excess 3.1 H ABG Hemoglobin 5.8 L Oxyhemoglobin 94.8 L Sodium Potassium Chloride Carbon Dioxide BUN Creatinine Glucose POC Glucose 130 H 136 H Lactic Acid Calcium Phosphorus Magnesium AST ALT Alkaline Phosphatase Lactate Dehydrogenase Troponin T C-Reactive Protein NT-Pro-B Natriuret Pep Total Protein Albumin LDL Cholesterol Direct Vitamin B12 Urine WBC (Auto) Fluid Glucose Fluid Total Protein Vancomycin Trough Crossmatch 11/15/21 11/15/21 11/15/21 05:20 05:50 05:50 WBC 19.9 H RBC 3.50 L Hgb 8.2 L Hct 27.9 L MCV MCH 23 L MCHC 29 L RDW 24.9 H Plt Count Eos % (Auto) Eos # (Auto) Seg Neuts % (Manual) Lymphocytes % (Manual) Seg Neutrophils # Seg Neutrophils # Man Lymphocytes # (Manual) Monocytes # (Manual) PT INR D-Dimer ABG pH ABG pO2 ABG HCO3 ABG O2 Saturation ABG Base Excess ABG Hemoglobin Oxyhemoglobin Sodium 149 H Potassium Chloride 112.0 H Carbon Dioxide BUN 48 H Creatinine Glucose 152 H POC Glucose 137 H Lactic Acid Calcium 7.9 L Phosphorus Magnesium AST ALT Alkaline Phosphatase Lactate Dehydrogenase Troponin T C-Reactive Protein NT-Pro-B Natriuret Pep Total Protein Albumin LDL Cholesterol Direct Vitamin B12 Urine WBC (Auto) Fluid Glucose Fluid Total Protein Vancomycin Trough Crossmatch 11/15/21 11/15/21 11/15/21 12:12 17:07 23:24 WBC RBC Hgb Hct MCV MCH MCHC RDW Plt Count Eos % (Auto) Eos # (Auto) Seg Neuts % (Manual) Lymphocytes % (Manual) Seg Neutrophils # Seg Neutrophils # Man Lymphocytes # (Manual) Monocytes # (Manual) PT INR D-Dimer ABG pH ABG pO2 ABG HCO3 ABG O2 Saturation ABG Base Excess ABG Hemoglobin Oxyhemoglobin Sodium Potassium Chloride Carbon Dioxide BUN Creatinine Glucose POC Glucose 114 H 135 H 123 H Lactic Acid Calcium Phosphorus Magnesium AST ALT Alkaline Phosphatase Lactate Dehydrogenase Troponin T C-Reactive Protein NT-Pro-B Natriuret Pep Total Protein Albumin LDL Cholesterol Direct Vitamin B12 Urine WBC (Auto) Fluid Glucose Fluid Total Protein Vancomycin Trough Crossmatch 11/16/21 11/16/21 11/16/21 05:21 10:00 10:00 WBC 21.7 H RBC 2.57 L Hgb 6.0 L Hct 20.2 L D MCV MCH 24 L MCHC RDW 26.3 H Plt Count Eos % (Auto) Eos # (Auto) Seg Neuts % (Manual) Lymphocytes % (Manual) Seg Neutrophils # Seg Neutrophils # Man Lymphocytes # (Manual) Monocytes # (Manual) PT INR D-Dimer ABG pH ABG pO2 ABG HCO3 ABG O2 Saturation ABG Base Excess ABG Hemoglobin Oxyhemoglobin Sodium 153 H Potassium Chloride 114.9 H Carbon Dioxide BUN 74 H Creatinine Glucose 155 H POC Glucose 127 H Lactic Acid Calcium 8.1 L Phosphorus Magnesium AST ALT Alkaline Phosphatase Lactate Dehydrogenase Troponin T C-Reactive Protein NT-Pro-B Natriuret Pep Total Protein Albumin LDL Cholesterol Direct Vitamin B12 Urine WBC (Auto) Fluid Glucose Fluid Total Protein Vancomycin Trough Crossmatch 11/16/21 11/16/21 11/16/21 11:34 14:00 15:25 WBC 17.2 H RBC 2.08 L Hgb 4.7 L* Hct 16.2 L* MCV 78 L MCH 23 L MCHC 29 L RDW 26.0 H Plt Count Eos % (Auto) Eos # (Auto) Seg Neuts % (Manual) 87.0 H Lymphocytes % (Manual) 8.0 L Seg Neutrophils # Seg Neutrophils # Man 15.0 H Lymphocytes # (Manual) Monocytes # (Manual) 0.9 H PT INR D-Dimer ABG pH ABG pO2 ABG HCO3 ABG O2 Saturation ABG Base Excess ABG Hemoglobin Oxyhemoglobin Sodium Potassium Chloride Carbon Dioxide BUN Creatinine Glucose POC Glucose 131 H Lactic Acid Calcium Phosphorus Magnesium AST ALT Alkaline Phosphatase Lactate Dehydrogenase Troponin T C-Reactive Protein NT-Pro-B Natriuret Pep Total Protein Albumin LDL Cholesterol Direct Vitamin B12 Urine WBC (Auto) Fluid Glucose Fluid Total Protein Vancomycin Trough Crossmatch See Detail 11/16/21 11/16/21 11/16/21 15:25 17:21 22:43 WBC RBC Hgb 8.6 L D Hct 27.7 L D MCV MCH MCHC RDW Plt Count Eos % (Auto) Eos # (Auto) Seg Neuts % (Manual) Lymphocytes % (Manual) Seg Neutrophils # Seg Neutrophils # Man Lymphocytes # (Manual) Monocytes # (Manual) PT INR D-Dimer ABG pH ABG pO2 ABG HCO3 ABG O2 Saturation ABG Base Excess ABG Hemoglobin Oxyhemoglobin Sodium 148 H Potassium Chloride 113.2 H Carbon Dioxide BUN 84 H Creatinine Glucose 164 H POC Glucose 124 H Lactic Acid Calcium 7.6 L Phosphorus Magnesium AST ALT Alkaline Phosphatase Lactate Dehydrogenase Troponin T C-Reactive Protein NT-Pro-B Natriuret Pep Total Protein Albumin LDL Cholesterol Direct Vitamin B12 Urine WBC (Auto) Fluid Glucose Fluid Total Protein Vancomycin Trough Crossmatch 11/16/21 11/17/21 11/17/21 23:07 05:33 05:56 WBC 25.1 H RBC 3.47 L Hgb 8.7 L Hct 28.5 L MCV MCH 25 L MCHC RDW 22.3 H Plt Count Eos % (Auto) Eos # (Auto) Seg Neuts % (Manual) Lymphocytes % (Manual) Seg Neutrophils # Seg Neutrophils # Man Lymphocytes # (Manual) Monocytes # (Manual) PT INR D-Dimer ABG pH ABG pO2 ABG HCO3 ABG O2 Saturation ABG Base Excess ABG Hemoglobin Oxyhemoglobin Sodium Potassium Chloride Carbon Dioxide BUN Creatinine Glucose POC Glucose 128 H 133 H Lactic Acid Calcium Phosphorus Magnesium AST ALT Alkaline Phosphatase Lactate Dehydrogenase Troponin T C-Reactive Protein NT-Pro-B Natriuret Pep Total Protein Albumin LDL Cholesterol Direct Vitamin B12 Urine WBC (Auto) Fluid Glucose Fluid Total Protein Vancomycin Trough Crossmatch 11/17/21 11/17/21 11/17/21 05:56 11:00 11:55 WBC RBC Hgb 8.3 L Hct 26.9 L MCV MCH MCHC RDW Plt Count Eos % (Auto) Eos # (Auto) Seg Neuts % (Manual) Lymphocytes % (Manual) Seg Neutrophils # Seg Neutrophils # Man Lymphocytes # (Manual) Monocytes # (Manual) PT INR D-Dimer ABG pH ABG pO2 ABG HCO3 ABG O2 Saturation ABG Base Excess ABG Hemoglobin Oxyhemoglobin Sodium 151 H Potassium Chloride 113.6 H Carbon Dioxide BUN 85 H Creatinine Glucose 132 H POC Glucose 121 H Lactic Acid Calcium 7.8 L Phosphorus Magnesium AST ALT Alkaline Phosphatase Lactate Dehydrogenase Troponin T C-Reactive Protein NT-Pro-B Natriuret Pep Total Protein 5.1 L Albumin 2.2 L LDL Cholesterol Direct Vitamin B12 Urine WBC (Auto) Fluid Glucose Fluid Total Protein Vancomycin Trough Crossmatch 11/17/21 11/17/21 11/18/21 18:04 18:55 00:26 WBC RBC Hgb 7.5 L 7.1 L Hct 24.8 L 23.6 L MCV MCH MCHC RDW Plt Count Eos % (Auto) Eos # (Auto) Seg Neuts % (Manual) Lymphocytes % (Manual) Seg Neutrophils # Seg Neutrophils # Man Lymphocytes # (Manual) Monocytes # (Manual) PT INR D-Dimer ABG pH ABG pO2 ABG HCO3 ABG O2 Saturation ABG Base Excess ABG Hemoglobin Oxyhemoglobin Sodium Potassium Chloride Carbon Dioxide BUN Creatinine Glucose POC Glucose 144 H Lactic Acid Calcium Phosphorus Magnesium AST ALT Alkaline Phosphatase Lactate Dehydrogenase Troponin T C-Reactive Protein NT-Pro-B Natriuret Pep Total Protein Albumin LDL Cholesterol Direct Vitamin B12 Urine WBC (Auto) Fluid Glucose Fluid Total Protein Vancomycin Trough Crossmatch 11/18/21 11/18/21 11/18/21 00:43 05:10 05:10 WBC 12.5 H RBC 2.39 L Hgb 6.1 L Hct 20.2 L MCV MCH 25 L MCHC RDW 23.2 H Plt Count Eos % (Auto) Eos # (Auto) Seg Neuts % (Manual) Lymphocytes % (Manual) Seg Neutrophils # Seg Neutrophils # Man Lymphocytes # (Manual) Monocytes # (Manual) PT INR D-Dimer ABG pH ABG pO2 ABG HCO3 ABG O2 Saturation ABG Base Excess ABG Hemoglobin Oxyhemoglobin Sodium 131 L D Potassium 2.9 L* D Chloride 97.8 L Carbon Dioxide BUN 58 H Creatinine Glucose 665 H* POC Glucose 139 H Lactic Acid Calcium 7.0 L Phosphorus 2.20 L D Magnesium 1.50 L AST ALT Alkaline Phosphatase Lactate Dehydrogenase Troponin T C-Reactive Protein NT-Pro-B Natriuret Pep Total Protein Albumin LDL Cholesterol Direct Vitamin B12 Urine WBC (Auto) Fluid Glucose Fluid Total Protein Vancomycin Trough Crossmatch 11/18/21 11/18/21 11/18/21 05:23 07:10 10:45 WBC RBC Hgb Hct MCV MCH MCHC RDW Plt Count Eos % (Auto) Eos # (Auto) Seg Neuts % (Manual) Lymphocytes % (Manual) Seg Neutrophils # Seg Neutrophils # Man Lymphocytes # (Manual) Monocytes # (Manual) PT INR D-Dimer ABG pH ABG pO2 ABG HCO3 ABG O2 Saturation ABG Base Excess ABG Hemoglobin Oxyhemoglobin Sodium 148 H D Potassium 3.1 L Chloride 111.9 H Carbon Dioxide BUN 63 H Creatinine Glucose 141 H POC Glucose 124 H Lactic Acid Calcium 8.1 L D Phosphorus Magnesium AST ALT Alkaline Phosphatase Lactate Dehydrogenase Troponin T C-Reactive Protein NT-Pro-B Natriuret Pep Total Protein Albumin LDL Cholesterol Direct Vitamin B12 Urine WBC (Auto) Fluid Glucose Fluid Total Protein Vancomycin Trough Crossmatch See Detail 11/18/21 11/19/21 11/19/21 11:57 00:19 04:55 WBC RBC 3.35 L Hgb 9.0 L 8.9 L Hct 28.3 L D 28.1 L MCV MCH 27 L MCHC RDW 20.3 H Plt Count Eos % (Auto) Eos # (Auto) Seg Neuts % (Manual) Lymphocytes % (Manual) Seg Neutrophils # Seg Neutrophils # Man Lymphocytes # (Manual) Monocytes # (Manual) PT INR D-Dimer ABG pH ABG pO2 ABG HCO3 ABG O2 Saturation ABG Base Excess ABG Hemoglobin Oxyhemoglobin Sodium Potassium Chloride Carbon Dioxide BUN Creatinine Glucose POC Glucose 119 H Lactic Acid Calcium Phosphorus Magnesium AST ALT Alkaline Phosphatase Lactate Dehydrogenase Troponin T C-Reactive Protein NT-Pro-B Natriuret Pep Total Protein Albumin LDL Cholesterol Direct Vitamin B12 Urine WBC (Auto) Fluid Glucose Fluid Total Protein Vancomycin Trough Crossmatch 11/19/21 11/19/21 11/20/21 04:55 05:42 00:55 WBC RBC Hgb 9.0 L Hct 28.6 L MCV MCH MCHC RDW Plt Count Eos % (Auto) Eos # (Auto) Seg Neuts % (Manual) Lymphocytes % (Manual) Seg Neutrophils # Seg Neutrophils # Man Lymphocytes # (Manual) Monocytes # (Manual) PT INR D-Dimer ABG pH ABG pO2 ABG HCO3 ABG O2 Saturation ABG Base Excess ABG Hemoglobin Oxyhemoglobin Sodium Potassium 3.5 L Chloride 108.6 H Carbon Dioxide BUN 47 H Creatinine Glucose 207 H POC Glucose 63 L Lactic Acid Calcium 7.1 L Phosphorus Magnesium AST ALT Alkaline Phosphatase Lactate Dehydrogenase Troponin T C-Reactive Protein NT-Pro-B Natriuret Pep Total Protein Albumin LDL Cholesterol Direct Vitamin B12 Urine WBC (Auto) Fluid Glucose Fluid Total Protein Vancomycin Trough Crossmatch 11/20/21 11/20/21 11/20/21 05:40 05:40 Unknown WBC RBC 3.40 L Hgb 9.1 L Hct 28.8 L MCV MCH 27 L MCHC RDW 20.7 H Plt Count Eos % (Auto) Eos # (Auto) Seg Neuts % (Manual) Lymphocytes % (Manual) Seg Neutrophils # Seg Neutrophils # Man Lymphocytes # (Manual) Monocytes # (Manual) PT INR D-Dimer ABG pH ABG pO2 ABG HCO3 ABG O2 Saturation ABG Base Excess -2.7 L ABG Hemoglobin 9.5 L Oxyhemoglobin 94.3 L Sodium Potassium 3.5 L Chloride 108.9 H Carbon Dioxide BUN 37 H Creatinine Glucose 117 H POC Glucose Lactic Acid Calcium 7.5 L Phosphorus Magnesium AST ALT Alkaline Phosphatase Lactate Dehydrogenase Troponin T C-Reactive Protein NT-Pro-B Natriuret Pep Total Protein Albumin LDL Cholesterol Direct Vitamin B12 Urine WBC (Auto) Fluid Glucose Fluid Total Protein Vancomycin Trough Crossmatch 11/21/21 11/21/21 11/21/21 04:30 04:30 16:00 WBC RBC 3.25 L Hgb 8.6 L Hct 28.1 L MCV MCH 26 L MCHC RDW 20.7 H Plt Count Eos % (Auto) Eos # (Auto) Seg Neuts % (Manual) Lymphocytes % (Manual) Seg Neutrophils # Seg Neutrophils # Man Lymphocytes # (Manual) Monocytes # (Manual) PT INR D-Dimer ABG pH ABG pO2 114.2 H ABG HCO3 ABG O2 Saturation ABG Base Excess ABG Hemoglobin 9.1 L Oxyhemoglobin Sodium 134 L Potassium Chloride Carbon Dioxide 20 L BUN 34 H Creatinine Glucose POC Glucose Lactic Acid Calcium 7.1 L Phosphorus Magnesium AST ALT Alkaline Phosphatase Lactate Dehydrogenase Troponin T C-Reactive Protein NT-Pro-B Natriuret Pep Total Protein Albumin LDL Cholesterol Direct Vitamin B12 Urine WBC (Auto) Fluid Glucose Fluid Total Protein Vancomycin Trough Crossmatch 11/22/21 11/22/21 11/22/21 07:07 07:07 23:54 WBC RBC 3.30 L Hgb 9.0 L Hct 28.5 L MCV MCH 27 L MCHC RDW 21.0 H Plt Count Eos % (Auto) Eos # (Auto) Seg Neuts % (Manual) Lymphocytes % (Manual) Seg Neutrophils # Seg Neutrophils # Man Lymphocytes # (Manual) Monocytes # (Manual) PT INR D-Dimer ABG pH ABG pO2 ABG HCO3 ABG O2 Saturation ABG Base Excess ABG Hemoglobin Oxyhemoglobin Sodium Potassium Chloride Carbon Dioxide BUN 32 H Creatinine Glucose 106 H POC Glucose 110 H Lactic Acid Calcium 7.5 L Phosphorus Magnesium AST ALT Alkaline Phosphatase Lactate Dehydrogenase Troponin T C-Reactive Protein NT-Pro-B Natriuret Pep Total Protein Albumin LDL Cholesterol Direct Vitamin B12 Urine WBC (Auto) Fluid Glucose Fluid Total Protein Vancomycin Trough Crossmatch 11/23/21 11/23/21 11/23/21 04:38 04:38 06:01 WBC RBC 3.23 L Hgb 8.8 L Hct 28.0 L MCV MCH 27 L MCHC RDW 21.3 H Plt Count Eos % (Auto) Eos # (Auto) Seg Neuts % (Manual) Lymphocytes % (Manual) Seg Neutrophils # Seg Neutrophils # Man Lymphocytes # (Manual) Monocytes # (Manual) PT INR D-Dimer ABG pH ABG pO2 ABG HCO3 ABG O2 Saturation ABG Base Excess ABG Hemoglobin Oxyhemoglobin Sodium 136 L Potassium Chloride Carbon Dioxide 20 L BUN 32 H Creatinine Glucose 109 H POC Glucose 115 H Lactic Acid Calcium 7.7 L Phosphorus Magnesium AST ALT Alkaline Phosphatase Lactate Dehydrogenase Troponin T C-Reactive Protein NT-Pro-B Natriuret Pep Total Protein Albumin LDL Cholesterol Direct Vitamin B12 Urine WBC (Auto) Fluid Glucose Fluid Total Protein Vancomycin Trough Crossmatch 11/23/21 11/24/21 11/24/21 11:40 00:03 04:13 WBC RBC 3.18 L Hgb 8.5 L Hct 27.5 L MCV MCH 27 L MCHC RDW 21.6 H Plt Count Eos % (Auto) Eos # (Auto) Seg Neuts % (Manual) Lymphocytes % (Manual) Seg Neutrophils # Seg Neutrophils # Man Lymphocytes # (Manual) Monocytes # (Manual) PT INR D-Dimer ABG pH ABG pO2 ABG HCO3 ABG O2 Saturation ABG Base Excess ABG Hemoglobin Oxyhemoglobin Sodium Potassium Chloride Carbon Dioxide BUN Creatinine Glucose POC Glucose 117 H 111 H Lactic Acid Calcium Phosphorus Magnesium AST ALT Alkaline Phosphatase Lactate Dehydrogenase Troponin T C-Reactive Protein NT-Pro-B Natriuret Pep Total Protein Albumin LDL Cholesterol Direct Vitamin B12 Urine WBC (Auto) Fluid Glucose Fluid Total Protein Vancomycin Trough Crossmatch 11/24/21 11/24/21 11/24/21 04:13 05:30 11:10 WBC RBC Hgb Hct MCV MCH MCHC RDW Plt Count Eos % (Auto) Eos # (Auto) Seg Neuts % (Manual) Lymphocytes % (Manual) Seg Neutrophils # Seg Neutrophils # Man Lymphocytes # (Manual) Monocytes # (Manual) PT INR D-Dimer ABG pH ABG pO2 ABG HCO3 ABG O2 Saturation ABG Base Excess ABG Hemoglobin Oxyhemoglobin Sodium Potassium Chloride Carbon Dioxide BUN 31 H Creatinine Glucose 101 H POC Glucose 115 H 107 H Lactic Acid Calcium 7.7 L Phosphorus Magnesium AST ALT Alkaline Phosphatase Lactate Dehydrogenase Troponin T C-Reactive Protein NT-Pro-B Natriuret Pep Total Protein Albumin LDL Cholesterol Direct Vitamin B12 Urine WBC (Auto) Fluid Glucose Fluid Total Protein Vancomycin Trough Crossmatch 11/24/21 11/24/21 11/25/21 16:34 17:57 05:12 WBC RBC 3.11 L Hgb 8.2 L Hct 26.6 L MCV MCH 26 L MCHC RDW 21.3 H Plt Count Eos % (Auto) Eos # (Auto) Seg Neuts % (Manual) Lymphocytes % (Manual) Seg Neutrophils # Seg Neutrophils # Man Lymphocytes # (Manual) Monocytes # (Manual) PT INR D-Dimer ABG pH ABG pO2 ABG HCO3 ABG O2 Saturation ABG Base Excess ABG Hemoglobin Oxyhemoglobin Sodium Potassium Chloride Carbon Dioxide BUN Creatinine Glucose POC Glucose 115 H 110 H Lactic Acid Calcium Phosphorus Magnesium AST ALT Alkaline Phosphatase Lactate Dehydrogenase Troponin T C-Reactive Protein NT-Pro-B Natriuret Pep Total Protein Albumin LDL Cholesterol Direct Vitamin B12 Urine WBC (Auto) Fluid Glucose Fluid Total Protein Vancomycin Trough Crossmatch 11/25/21 11/25/2122 05:12 11:20 05:00 WBC RBC 3.30 L Hgb 8.8 L Hct 28.2 L MCV MCH 27 L MCHC RDW 20.7 H Plt Count Eos % (Auto) Eos # (Auto) Seg Neuts % (Manual) Lymphocytes % (Manual) Seg Neutrophils # Seg Neutrophils # Man Lymphocytes # (Manual) Monocytes # (Manual) PT INR D-Dimer ABG pH ABG pO2 ABG HCO3 ABG O2 Saturation ABG Base Excess ABG Hemoglobin Oxyhemoglobin Sodium Potassium Chloride Carbon Dioxide BUN 32 H Creatinine Glucose 118 H POC Glucose 118 H Lactic Acid Calcium 8.2 L Phosphorus Magnesium AST ALT Alkaline Phosphatase Lactate Dehydrogenase Troponin T C-Reactive Protein NT-Pro-B Natriuret Pep Total Protein Albumin LDL Cholesterol Direct Vitamin B12 Urine WBC (Auto) Fluid Glucose Fluid Total Protein Vancomycin Trough Crossmatch 11/26/21 11/26/21 11/26/21 05:00 05:00 05:44 WBC RBC Hgb Hct MCV MCH MCHC RDW Plt Count Eos % (Auto) Eos # (Auto) Seg Neuts % (Manual) Lymphocytes % (Manual) Seg Neutrophils # Seg Neutrophils # Man Lymphocytes # (Manual) Monocytes # (Manual) PT 16.9 H INR 1.24 H D-Dimer ABG pH ABG pO2 ABG HCO3 ABG O2 Saturation ABG Base Excess ABG Hemoglobin Oxyhemoglobin Sodium Potassium Chloride Carbon Dioxide BUN 31 H Creatinine Glucose 104 H POC Glucose 110 H Lactic Acid Calcium 7.9 L Phosphorus Magnesium AST ALT Alkaline Phosphatase Lactate Dehydrogenase Troponin T C-Reactive Protein NT-Pro-B Natriuret Pep Total Protein Albumin LDL Cholesterol Direct Vitamin B12 Urine WBC (Auto) Fluid Glucose Fluid Total Protein Vancomycin Trough Crossmatch 11/26/21 11/27/21 11/27/21 23:55 07:40 07:40 WBC RBC 3.18 L Hgb 8.5 L Hct 27.0 L MCV MCH 27 L MCHC RDW 21.2 H Plt Count Eos % (Auto) Eos # (Auto) Seg Neuts % (Manual) Lymphocytes % (Manual) Seg Neutrophils # Seg Neutrophils # Man Lymphocytes # (Manual) Monocytes # (Manual) PT INR D-Dimer ABG pH ABG pO2 ABG HCO3 ABG O2 Saturation ABG Base Excess ABG Hemoglobin Oxyhemoglobin Sodium Potassium Chloride Carbon Dioxide BUN 27 H Creatinine Glucose 112 H POC Glucose 63 L Lactic Acid Calcium 7.6 L Phosphorus Magnesium AST ALT Alkaline Phosphatase Lactate Dehydrogenase Troponin T C-Reactive Protein NT-Pro-B Natriuret Pep Total Protein Albumin LDL Cholesterol Direct Vitamin B12 Urine WBC (Auto) Fluid Glucose Fluid Total Protein Vancomycin Trough Crossmatch 11/27/21 11/27/21 11/27/21 12:04 13:40 13:40 WBC RBC 3.31 L Hgb 8.7 L Hct 28.0 L MCV MCH 26 L MCHC RDW 20.7 H Plt Count Eos % (Auto) Eos # (Auto) Seg Neuts % (Manual) Lymphocytes % (Manual) Seg Neutrophils # Seg Neutrophils # Man Lymphocytes # (Manual) Monocytes # (Manual) PT INR D-Dimer ABG pH ABG pO2 ABG HCO3 ABG O2 Saturation ABG Base Excess ABG Hemoglobin Oxyhemoglobin Sodium 136 L Potassium Chloride Carbon Dioxide BUN 25 H Creatinine Glucose 127 H POC Glucose 109 H Lactic Acid Calcium 7.6 L Phosphorus Magnesium 1.40 L AST ALT Alkaline Phosphatase Lactate Dehydrogenase Troponin T C-Reactive Protein NT-Pro-B Natriuret Pep Total Protein Albumin LDL Cholesterol Direct Vitamin B12 Urine WBC (Auto) Fluid Glucose Fluid Total Protein Vancomycin Trough Crossmatch 11/27/21 11/27/21 11/28/21 17:44 23:33 12:20 WBC RBC Hgb Hct MCV MCH MCHC RDW Plt Count Eos % (Auto) Eos # (Auto) Seg Neuts % (Manual) Lymphocytes % (Manual) Seg Neutrophils # Seg Neutrophils # Man Lymphocytes # (Manual) Monocytes # (Manual) PT INR D-Dimer ABG pH ABG pO2 ABG HCO3 ABG O2 Saturation ABG Base Excess ABG Hemoglobin Oxyhemoglobin Sodium Potassium Chloride Carbon Dioxide BUN Creatinine Glucose POC Glucose 107 H 108 H 114 H Lactic Acid Calcium Phosphorus Magnesium AST ALT Alkaline Phosphatase Lactate Dehydrogenase Troponin T C-Reactive Protein NT-Pro-B Natriuret Pep Total Protein Albumin LDL Cholesterol Direct Vitamin B12 Urine WBC (Auto) Fluid Glucose Fluid Total Protein Vancomycin Trough Crossmatch 11/29/21 11/29/21 11/29/21 00:09 03:20 03:20 WBC RBC 3.05 L Hgb 8.2 L Hct 25.8 L MCV MCH 27 L MCHC RDW 20.9 H Plt Count Eos % (Auto) Eos # (Auto) Seg Neuts % (Manual) Lymphocytes % (Manual) Seg Neutrophils # Seg Neutrophils # Man Lymphocytes # (Manual) Monocytes # (Manual) PT INR D-Dimer ABG pH ABG pO2 ABG HCO3 ABG O2 Saturation ABG Base Excess ABG Hemoglobin Oxyhemoglobin Sodium 133 L Potassium Chloride Carbon Dioxide BUN 24 H Creatinine Glucose 137 H POC Glucose 134 H Lactic Acid Calcium 7.4 L Phosphorus Magnesium AST ALT Alkaline Phosphatase Lactate Dehydrogenase Troponin T C-Reactive Protein NT-Pro-B Natriuret Pep Total Protein Albumin LDL Cholesterol Direct Vitamin B12 Urine WBC (Auto) Fluid Glucose Fluid Total Protein Vancomycin Trough Crossmatch 11/29/21 11/29/21 11/29/21 05:38 11:39 17:11 WBC RBC Hgb Hct MCV MCH MCHC RDW Plt Count Eos % (Auto) Eos # (Auto) Seg Neuts % (Manual) Lymphocytes % (Manual) Seg Neutrophils # Seg Neutrophils # Man Lymphocytes # (Manual) Monocytes # (Manual) PT INR D-Dimer ABG pH ABG pO2 ABG HCO3 ABG O2 Saturation ABG Base Excess ABG Hemoglobin Oxyhemoglobin Sodium Potassium Chloride Carbon Dioxide BUN Creatinine Glucose POC Glucose 117 H 143 H 124 H Lactic Acid Calcium Phosphorus Magnesium AST ALT Alkaline Phosphatase Lactate Dehydrogenase Troponin T C-Reactive Protein NT-Pro-B Natriuret Pep Total Protein Albumin LDL Cholesterol Direct Vitamin B12 Urine WBC (Auto) Fluid Glucose Fluid Total Protein Vancomycin Trough Crossmatch 11/29/21 11/30/21 11/30/21 20:15 05:40 05:40 WBC 12.6 H RBC 3.41 L Hgb 9.1 L Hct 28.9 L MCV MCH 27 L MCHC RDW 20.4 H Plt Count Eos % (Auto) Eos # (Auto) Seg Neuts % (Manual) Lymphocytes % (Manual) Seg Neutrophils # Seg Neutrophils # Man Lymphocytes # (Manual) Monocytes # (Manual) PT INR D-Dimer ABG pH ABG pO2 ABG HCO3 ABG O2 Saturation ABG Base Excess ABG Hemoglobin Oxyhemoglobin Sodium Potassium Chloride Carbon Dioxide BUN 24 H Creatinine Glucose 131 H POC Glucose Lactic Acid Calcium 7.6 L Phosphorus Magnesium AST ALT Alkaline Phosphatase Lactate Dehydrogenase Troponin T 0.045 H C-Reactive Protein NT-Pro-B Natriuret Pep Total Protein Albumin LDL Cholesterol Direct 25 L Vitamin B12 Urine WBC (Auto) Fluid Glucose Fluid Total Protein Vancomycin Trough Crossmatch 11/30/21 11/30/21 12/01/21 11:29 16:51 05:00 WBC RBC 2.97 L Hgb 8.0 L Hct 25.0 L MCV MCH 27 L MCHC RDW 20.8 H Plt Count Eos % (Auto) Eos # (Auto) Seg Neuts % (Manual) Lymphocytes % (Manual) Seg Neutrophils # Seg Neutrophils # Man Lymphocytes # (Manual) Monocytes # (Manual) PT INR D-Dimer ABG pH ABG pO2 ABG HCO3 ABG O2 Saturation ABG Base Excess ABG Hemoglobin Oxyhemoglobin Sodium Potassium Chloride Carbon Dioxide BUN Creatinine Glucose POC Glucose 123 H 114 H Lactic Acid Calcium Phosphorus Magnesium AST ALT Alkaline Phosphatase Lactate Dehydrogenase Troponin T C-Reactive Protein NT-Pro-B Natriuret Pep Total Protein Albumin LDL Cholesterol Direct Vitamin B12 Urine WBC (Auto) Fluid Glucose Fluid Total Protein Vancomycin Trough Crossmatch 12/01/21 12/01/21 12/01/21 05:00 05:25 11:54 WBC RBC Hgb Hct MCV MCH MCHC RDW Plt Count Eos % (Auto) Eos # (Auto) Seg Neuts % (Manual) Lymphocytes % (Manual) Seg Neutrophils # Seg Neutrophils # Man Lymphocytes # (Manual) Monocytes # (Manual) PT INR D-Dimer ABG pH ABG pO2 ABG HCO3 ABG O2 Saturation ABG Base Excess ABG Hemoglobin Oxyhemoglobin Sodium 136 L Potassium Chloride Carbon Dioxide BUN 24 H Creatinine Glucose 117 H POC Glucose 108 H 107 H Lactic Acid Calcium 7.5 L Phosphorus Magnesium 1.60 L AST ALT Alkaline Phosphatase Lactate Dehydrogenase Troponin T C-Reactive Protein NT-Pro-B Natriuret Pep Total Protein Albumin LDL Cholesterol Direct Vitamin B12 Urine WBC (Auto) Fluid Glucose Fluid Total Protein Vancomycin Trough Crossmatch 12/01/21 12/02/21 12/02/21 17:40 00:07 04:20 WBC RBC 2.92 L Hgb 7.7 L Hct 24.3 L MCV MCH 26 L MCHC RDW 20.5 H Plt Count Eos % (Auto) Eos # (Auto) Seg Neuts % (Manual) Lymphocytes % (Manual) Seg Neutrophils # Seg Neutrophils # Man Lymphocytes # (Manual) Monocytes # (Manual) PT INR D-Dimer ABG pH ABG pO2 ABG HCO3 ABG O2 Saturation ABG Base Excess ABG Hemoglobin Oxyhemoglobin Sodium Potassium Chloride Carbon Dioxide BUN Creatinine Glucose POC Glucose 123 H 110 H Lactic Acid Calcium Phosphorus Magnesium AST ALT Alkaline Phosphatase Lactate Dehydrogenase Troponin T C-Reactive Protein NT-Pro-B Natriuret Pep Total Protein Albumin LDL Cholesterol Direct Vitamin B12 Urine WBC (Auto) Fluid Glucose Fluid Total Protein Vancomycin Trough Crossmatch 12/02/21 12/02/21 12/02/21 04:20 11:17 18:20 WBC RBC Hgb Hct MCV MCH MCHC RDW Plt Count Eos % (Auto) Eos # (Auto) Seg Neuts % (Manual) Lymphocytes % (Manual) Seg Neutrophils # Seg Neutrophils # Man Lymphocytes # (Manual) Monocytes # (Manual) PT INR D-Dimer ABG pH ABG pO2 ABG HCO3 ABG O2 Saturation ABG Base Excess ABG Hemoglobin Oxyhemoglobin Sodium 135 L Potassium Chloride Carbon Dioxide BUN 26 H Creatinine Glucose 121 H POC Glucose 117 H 113 H Lactic Acid Calcium 7.4 L Phosphorus Magnesium AST ALT Alkaline Phosphatase Lactate Dehydrogenase Troponin T C-Reactive Protein NT-Pro-B Natriuret Pep Total Protein Albumin LDL Cholesterol Direct Vitamin B12 Urine WBC (Auto) Fluid Glucose Fluid Total Protein Vancomycin Trough Crossmatch 12/03/21 12/03/21 12/03/21 00:12 04:00 04:00 WBC RBC 2.99 L Hgb 7.8 L Hct 24.6 L MCV MCH 26 L MCHC RDW 20.2 H Plt Count Eos % (Auto) Eos # (Auto) Seg Neuts % (Manual) Lymphocytes % (Manual) Seg Neutrophils # Seg Neutrophils # Man Lymphocytes # (Manual) Monocytes # (Manual) PT INR D-Dimer ABG pH ABG pO2 ABG HCO3 ABG O2 Saturation ABG Base Excess ABG Hemoglobin Oxyhemoglobin Sodium 136 L Potassium Chloride Carbon Dioxide BUN 27 H Creatinine Glucose 133 H POC Glucose 121 H Lactic Acid Calcium 7.5 L Phosphorus Magnesium AST ALT Alkaline Phosphatase Lactate Dehydrogenase Troponin T C-Reactive Protein NT-Pro-B Natriuret Pep Total Protein Albumin LDL Cholesterol Direct Vitamin B12 Urine WBC (Auto) Fluid Glucose Fluid Total Protein Vancomycin Trough Crossmatch 12/03/21 12/03/21 12/03/21 06:30 11:13 16:00 WBC RBC Hgb Hct MCV MCH MCHC RDW Plt Count Eos % (Auto) Eos # (Auto) Seg Neuts % (Manual) Lymphocytes % (Manual) Seg Neutrophils # Seg Neutrophils # Man Lymphocytes # (Manual) Monocytes # (Manual) PT INR D-Dimer ABG pH ABG pO2 ABG HCO3 ABG O2 Saturation ABG Base Excess ABG Hemoglobin Oxyhemoglobin Sodium Potassium Chloride Carbon Dioxide BUN Creatinine Glucose POC Glucose 129 H 125 H 125 H Lactic Acid Calcium Phosphorus Magnesium AST ALT Alkaline Phosphatase Lactate Dehydrogenase Troponin T C-Reactive Protein NT-Pro-B Natriuret Pep Total Protein Albumin LDL Cholesterol Direct Vitamin B12 Urine WBC (Auto) Fluid Glucose Fluid Total Protein Vancomycin Trough Crossmatch 12/03/21 12/04/21 12/04/21 23:32 04:00 05:36 WBC RBC Hgb Hct MCV MCH MCHC RDW Plt Count Eos % (Auto) Eos # (Auto) Seg Neuts % (Manual) Lymphocytes % (Manual) Seg Neutrophils # Seg Neutrophils # Man Lymphocytes # (Manual) Monocytes # (Manual) PT INR D-Dimer ABG pH ABG pO2 ABG HCO3 ABG O2 Saturation ABG Base Excess ABG Hemoglobin Oxyhemoglobin Sodium Potassium 3.5 L Chloride Carbon Dioxide BUN 26 H Creatinine 0.5 L Glucose 151 H POC Glucose 133 H 142 H Lactic Acid Calcium 8.3 L Phosphorus Magnesium AST ALT Alkaline Phosphatase Lactate Dehydrogenase Troponin T C-Reactive Protein NT-Pro-B Natriuret Pep Total Protein Albumin LDL Cholesterol Direct Vitamin B12 Urine WBC (Auto) Fluid Glucose Fluid Total Protein Vancomycin Trough Crossmatch 12/04/21 12/04/21 12/05/21 11:24 15:58 04:36 WBC RBC Hgb Hct MCV MCH MCHC RDW Plt Count Eos % (Auto) Eos # (Auto) Seg Neuts % (Manual) Lymphocytes % (Manual) Seg Neutrophils # Seg Neutrophils # Man Lymphocytes # (Manual) Monocytes # (Manual) PT INR D-Dimer ABG pH ABG pO2 ABG HCO3 ABG O2 Saturation ABG Base Excess ABG Hemoglobin Oxyhemoglobin Sodium Potassium Chloride Carbon Dioxide BUN 21 H Creatinine 0.5 L Glucose 119 H POC Glucose 130 H 111 H Lactic Acid Calcium 8.3 L Phosphorus Magnesium AST ALT Alkaline Phosphatase Lactate Dehydrogenase Troponin T C-Reactive Protein NT-Pro-B Natriuret Pep Total Protein Albumin LDL Cholesterol Direct Vitamin B12 Urine WBC (Auto) Fluid Glucose Fluid Total Protein Vancomycin Trough Crossmatch 12/05/21 12/05/21 12/05/21 05:15 10:40 11:12 WBC RBC 2.98 L Hgb 8.1 L Hct 24.6 L MCV MCH 27 L MCHC RDW 20.8 H Plt Count Eos % (Auto) Eos # (Auto) Seg Neuts % (Manual) Lymphocytes % (Manual) Seg Neutrophils # Seg Neutrophils # Man Lymphocytes # (Manual) Monocytes # (Manual) PT INR D-Dimer ABG pH ABG pO2 ABG HCO3 ABG O2 Saturation ABG Base Excess ABG Hemoglobin Oxyhemoglobin Sodium Potassium Chloride Carbon Dioxide BUN Creatinine Glucose POC Glucose 107 H 110 H Lactic Acid Calcium Phosphorus Magnesium AST ALT Alkaline Phosphatase Lactate Dehydrogenase Troponin T C-Reactive Protein NT-Pro-B Natriuret Pep Total Protein Albumin LDL Cholesterol Direct Vitamin B12 Urine WBC (Auto) Fluid Glucose Fluid Total Protein Vancomycin Trough Crossmatch 12/05/21 12/06/21 12/06/21 23:39 04:25 04:25 WBC RBC 2.95 L Hgb 7.9 L Hct 24.7 L MCV MCH 27 L MCHC RDW 20.9 H Plt Count Eos % (Auto) Eos # (Auto) Seg Neuts % (Manual) Lymphocytes % (Manual) Seg Neutrophils # Seg Neutrophils # Man Lymphocytes # (Manual) Monocytes # (Manual) PT INR D-Dimer ABG pH ABG pO2 ABG HCO3 ABG O2 Saturation ABG Base Excess ABG Hemoglobin Oxyhemoglobin Sodium Potassium Chloride Carbon Dioxide BUN 22 H Creatinine 0.5 L Glucose 136 H POC Glucose 118 H Lactic Acid Calcium 8.2 L Phosphorus Magnesium AST ALT Alkaline Phosphatase Lactate Dehydrogenase Troponin T C-Reactive Protein NT-Pro-B Natriuret Pep Total Protein Albumin LDL Cholesterol Direct Vitamin B12 Urine WBC (Auto) Fluid Glucose Fluid Total Protein Vancomycin Trough Crossmatch 12/06/21 12/06/21 12/07/21 05:28 11:27 04:00 WBC RBC Hgb 7.2 L Hct 21.8 L MCV MCH MCHC RDW Plt Count Eos % (Auto) Eos # (Auto) Seg Neuts % (Manual) Lymphocytes % (Manual) Seg Neutrophils # Seg Neutrophils # Man Lymphocytes # (Manual) Monocytes # (Manual) PT INR D-Dimer ABG pH ABG pO2 ABG HCO3 ABG O2 Saturation ABG Base Excess ABG Hemoglobin Oxyhemoglobin Sodium Potassium Chloride Carbon Dioxide BUN Creatinine Glucose POC Glucose 142 H 126 H Lactic Acid Calcium Phosphorus Magnesium AST ALT Alkaline Phosphatase Lactate Dehydrogenase Troponin T C-Reactive Protein NT-Pro-B Natriuret Pep Total Protein Albumin LDL Cholesterol Direct Vitamin B12 Urine WBC (Auto) Fluid Glucose Fluid Total Protein Vancomycin Trough Crossmatch 12/07/21 12/07/21 12/07/21 04:00 05:30 11:12 WBC RBC Hgb Hct MCV MCH MCHC RDW Plt Count Eos % (Auto) Eos # (Auto) Seg Neuts % (Manual) Lymphocytes % (Manual) Seg Neutrophils # Seg Neutrophils # Man Lymphocytes # (Manual) Monocytes # (Manual) PT INR D-Dimer ABG pH ABG pO2 ABG HCO3 ABG O2 Saturation ABG Base Excess ABG Hemoglobin Oxyhemoglobin Sodium Potassium Chloride Carbon Dioxide BUN 22 H Creatinine Glucose 119 H POC Glucose 121 H 124 H Lactic Acid Calcium 8.0 L Phosphorus Magnesium AST ALT Alkaline Phosphatase Lactate Dehydrogenase Troponin T C-Reactive Protein NT-Pro-B Natriuret Pep Total Protein Albumin LDL Cholesterol Direct Vitamin B12 Urine WBC (Auto) Fluid Glucose Fluid Total Protein Vancomycin Trough Crossmatch 12/08/21 12/08/21 12/08/21 04:00 04:00 05:39 WBC RBC 2.81 L Hgb 7.7 L Hct 23.5 L MCV MCH MCHC RDW 21.2 H Plt Count Eos % (Auto) Eos # (Auto) Seg Neuts % (Manual) Lymphocytes % (Manual) Seg Neutrophils # Seg Neutrophils # Man Lymphocytes # (Manual) Monocytes # (Manual) PT INR D-Dimer ABG pH ABG pO2 ABG HCO3 ABG O2 Saturation ABG Base Excess ABG Hemoglobin Oxyhemoglobin Sodium 135 L Potassium Chloride Carbon Dioxide BUN 23 H Creatinine Glucose 109 H POC Glucose 112 H Lactic Acid Calcium Phosphorus Magnesium AST ALT Alkaline Phosphatase Lactate Dehydrogenase Troponin T C-Reactive Protein NT-Pro-B Natriuret Pep Total Protein Albumin LDL Cholesterol Direct Vitamin B12 Urine WBC (Auto) Fluid Glucose Fluid Total Protein Vancomycin Trough Crossmatch 12/08/21 12/09/21 12/09/21 11:03 04:20 04:20 WBC RBC 2.67 L Hgb 7.6 L Hct 22.1 L MCV MCH MCHC RDW 20.8 H Plt Count Eos % (Auto) Eos # (Auto) Seg Neuts % (Manual) Lymphocytes % (Manual) Seg Neutrophils # Seg Neutrophils # Man Lymphocytes # (Manual) Monocytes # (Manual) PT INR D-Dimer ABG pH ABG pO2 ABG HCO3 ABG O2 Saturation ABG Base Excess ABG Hemoglobin Oxyhemoglobin Sodium 135 L Potassium Chloride 97.8 L Carbon Dioxide BUN 26 H Creatinine Glucose 119 H POC Glucose 108 H Lactic Acid Calcium 7.7 L Phosphorus Magnesium AST ALT Alkaline Phosphatase Lactate Dehydrogenase Troponin T C-Reactive Protein NT-Pro-B Natriuret Pep Total Protein Albumin LDL Cholesterol Direct Vitamin B12 Urine WBC (Auto) Fluid Glucose Fluid Total Protein Vancomycin Trough Crossmatch 12/09/21 12/10/21 12/10/21 11:26 04:33 11:12 WBC RBC Hgb Hct MCV MCH MCHC RDW Plt Count Eos % (Auto) Eos # (Auto) Seg Neuts % (Manual) Lymphocytes % (Manual) Seg Neutrophils # Seg Neutrophils # Man Lymphocytes # (Manual) Monocytes # (Manual) PT INR D-Dimer ABG pH ABG pO2 ABG HCO3 ABG O2 Saturation ABG Base Excess ABG Hemoglobin Oxyhemoglobin Sodium 136 L Potassium Chloride Carbon Dioxide BUN 27 H Creatinine Glucose 117 H POC Glucose 110 H 117 H Lactic Acid Calcium 8.2 L Phosphorus Magnesium AST ALT Alkaline Phosphatase Lactate Dehydrogenase Troponin T C-Reactive Protein NT-Pro-B Natriuret Pep Total Protein Albumin LDL Cholesterol Direct Vitamin B12 Urine WBC (Auto) Fluid Glucose Fluid Total Protein Vancomycin Trough Crossmatch 12/10/21 12/10/21 12/11/21 16:02 23:31 04:35 WBC RBC 2.57 L Hgb 7.0 L Hct 21.4 L MCV MCH 27 L MCHC RDW 21.1 H Plt Count Eos % (Auto) Eos # (Auto) Seg Neuts % (Manual) Lymphocytes % (Manual) Seg Neutrophils # Seg Neutrophils # Man Lymphocytes # (Manual) Monocytes # (Manual) PT INR D-Dimer ABG pH ABG pO2 ABG HCO3 ABG O2 Saturation ABG Base Excess ABG Hemoglobin Oxyhemoglobin Sodium Potassium Chloride Carbon Dioxide BUN Creatinine Glucose POC Glucose 137 H 111 H Lactic Acid Calcium Phosphorus Magnesium AST ALT Alkaline Phosphatase Lactate Dehydrogenase Troponin T C-Reactive Protein NT-Pro-B Natriuret Pep Total Protein Albumin LDL Cholesterol Direct Vitamin B12 Urine WBC (Auto) Fluid Glucose Fluid Total Protein Vancomycin Trough Crossmatch 12/11/21 12/11/21 12/11/21 04:35 12:46 16:07 WBC RBC Hgb Hct MCV MCH MCHC RDW Plt Count Eos % (Auto) Eos # (Auto) Seg Neuts % (Manual) Lymphocytes % (Manual) Seg Neutrophils # Seg Neutrophils # Man Lymphocytes # (Manual) Monocytes # (Manual) PT INR D-Dimer ABG pH ABG pO2 ABG HCO3 ABG O2 Saturation ABG Base Excess ABG Hemoglobin Oxyhemoglobin Sodium 136 L Potassium Chloride Carbon Dioxide BUN 27 H Creatinine Glucose 112 H POC Glucose 115 H 111 H Lactic Acid Calcium 7.6 L Phosphorus Magnesium AST ALT Alkaline Phosphatase Lactate Dehydrogenase Troponin T C-Reactive Protein NT-Pro-B Natriuret Pep Total Protein Albumin LDL Cholesterol Direct Vitamin B12 Urine WBC (Auto) Fluid Glucose Fluid Total Protein Vancomycin Trough Crossmatch 12/11/21 12/12/21 12/12/21 23:42 04:30 04:30 WBC RBC 2.60 L Hgb 7.1 L Hct 21.5 L MCV MCH 27 L MCHC RDW 20.3 H Plt Count Eos % (Auto) Eos # (Auto) Seg Neuts % (Manual) Lymphocytes % (Manual) Seg Neutrophils # Seg Neutrophils # Man Lymphocytes # (Manual) Monocytes # (Manual) PT INR D-Dimer ABG pH ABG pO2 ABG HCO3 ABG O2 Saturation ABG Base Excess ABG Hemoglobin Oxyhemoglobin Sodium 135 L Potassium Chloride 97.9 L Carbon Dioxide BUN 26 H Creatinine 0.5 L Glucose 138 H POC Glucose 115 H Lactic Acid Calcium 8.2 L Phosphorus Magnesium AST ALT Alkaline Phosphatase Lactate Dehydrogenase Troponin T C-Reactive Protein NT-Pro-B Natriuret Pep Total Protein Albumin LDL Cholesterol Direct Vitamin B12 Urine WBC (Auto) Fluid Glucose Fluid Total Protein Vancomycin Trough Crossmatch 12/12/21 12/12/21 12/12/21 04:30 05:10 11:51 WBC RBC Hgb Hct MCV MCH MCHC RDW Plt Count Eos % (Auto) Eos # (Auto) Seg Neuts % (Manual) Lymphocytes % (Manual) Seg Neutrophils # Seg Neutrophils # Man Lymphocytes # (Manual) Monocytes # (Manual) PT INR D-Dimer ABG pH ABG pO2 ABG HCO3 ABG O2 Saturation ABG Base Excess ABG Hemoglobin Oxyhemoglobin Sodium Potassium Chloride Carbon Dioxide BUN Creatinine Glucose POC Glucose 119 H 119 H Lactic Acid Calcium Phosphorus Magnesium AST ALT Alkaline Phosphatase Lactate Dehydrogenase Troponin T C-Reactive Protein NT-Pro-B Natriuret Pep Total Protein Albumin LDL Cholesterol Direct Vitamin B12 Urine WBC (Auto) Fluid Glucose Fluid Total Protein Vancomycin Trough Crossmatch See Detail 12/13/21 12/13/21 12/13/21 00:52 04:00 04:00 WBC RBC 2.73 L Hgb 7.4 L Hct 22.8 L MCV MCH 27 L MCHC RDW 20.5 H Plt Count Eos % (Auto) Eos # (Auto) Seg Neuts % (Manual) Lymphocytes % (Manual) Seg Neutrophils # Seg Neutrophils # Man Lymphocytes # (Manual) Monocytes # (Manual) PT INR D-Dimer ABG pH ABG pO2 ABG HCO3 ABG O2 Saturation ABG Base Excess ABG Hemoglobin Oxyhemoglobin Sodium 134 L Potassium Chloride 96.7 L Carbon Dioxide BUN 23 H Creatinine 0.5 L Glucose 131 H POC Glucose 131 H Lactic Acid Calcium 8.1 L Phosphorus Magnesium AST ALT Alkaline Phosphatase Lactate Dehydrogenase Troponin T C-Reactive Protein NT-Pro-B Natriuret Pep Total Protein Albumin LDL Cholesterol Direct Vitamin B12 Urine WBC (Auto) Fluid Glucose Fluid Total Protein Vancomycin Trough Crossmatch 12/13/21 12/13/21 12/13/21 05:23 12:11 17:18 WBC RBC Hgb Hct MCV MCH MCHC RDW Plt Count Eos % (Auto) Eos # (Auto) Seg Neuts % (Manual) Lymphocytes % (Manual) Seg Neutrophils # Seg Neutrophils # Man Lymphocytes # (Manual) Monocytes # (Manual) PT INR D-Dimer ABG pH ABG pO2 ABG HCO3 ABG O2 Saturation ABG Base Excess ABG Hemoglobin Oxyhemoglobin Sodium Potassium Chloride Carbon Dioxide BUN Creatinine Glucose POC Glucose 121 H 143 H 148 H Lactic Acid Calcium Phosphorus Magnesium AST ALT Alkaline Phosphatase Lactate Dehydrogenase Troponin T C-Reactive Protein NT-Pro-B Natriuret Pep Total Protein Albumin LDL Cholesterol Direct Vitamin B12 Urine WBC (Auto) Fluid Glucose Fluid Total Protein Vancomycin Trough Crossmatch 12/14/21 12/14/21 12/14/21 00:54 04:20 04:20 WBC RBC 2.39 L Hgb 6.5 L Hct 20.3 L MCV MCH 27 L MCHC RDW 20.3 H Plt Count Eos % (Auto) Eos # (Auto) Seg Neuts % (Manual) Lymphocytes % (Manual) Seg Neutrophils # Seg Neutrophils # Man Lymphocytes # (Manual) Monocytes # (Manual) PT INR D-Dimer ABG pH ABG pO2 ABG HCO3 ABG O2 Saturation ABG Base Excess ABG Hemoglobin Oxyhemoglobin Sodium 130 L Potassium Chloride 93.5 L Carbon Dioxide BUN 25 H Creatinine Glucose 123 H POC Glucose 123 H Lactic Acid Calcium 8.0 L Phosphorus Magnesium AST ALT Alkaline Phosphatase Lactate Dehydrogenase Troponin T C-Reactive Protein NT-Pro-B Natriuret Pep Total Protein Albumin LDL Cholesterol Direct Vitamin B12 Urine WBC (Auto) Fluid Glucose Fluid Total Protein Vancomycin Trough Crossmatch 12/14/21 12/14/21 12/14/21 05:06 08:17 10:30 WBC RBC Hgb Hct MCV MCH MCHC RDW Plt Count Eos % (Auto) Eos # (Auto) Seg Neuts % (Manual) Lymphocytes % (Manual) Seg Neutrophils # Seg Neutrophils # Man Lymphocytes # (Manual) Monocytes # (Manual) PT INR D-Dimer ABG pH ABG pO2 ABG HCO3 ABG O2 Saturation ABG Base Excess ABG Hemoglobin Oxyhemoglobin Sodium Potassium Chloride Carbon Dioxide BUN Creatinine Glucose POC Glucose 131 H 119 H Lactic Acid Calcium Phosphorus Magnesium AST ALT Alkaline Phosphatase Lactate Dehydrogenase Troponin T C-Reactive Protein NT-Pro-B Natriuret Pep Total Protein Albumin LDL Cholesterol Direct Vitamin B12 Urine WBC (Auto) Fluid Glucose Fluid Total Protein Vancomycin Trough Crossmatch See Detail 12/14/21 12/14/21 12/14/21 12:15 16:37 23:27 WBC RBC Hgb Hct MCV MCH MCHC RDW Plt Count Eos % (Auto) Eos # (Auto) Seg Neuts % (Manual) Lymphocytes % (Manual) Seg Neutrophils # Seg Neutrophils # Man Lymphocytes # (Manual) Monocytes # (Manual) PT INR D-Dimer ABG pH ABG pO2 ABG HCO3 ABG O2 Saturation ABG Base Excess ABG Hemoglobin Oxyhemoglobin Sodium Potassium Chloride Carbon Dioxide BUN Creatinine Glucose POC Glucose 147 H 141 H 130 H Lactic Acid Calcium Phosphorus Magnesium AST ALT Alkaline Phosphatase Lactate Dehydrogenase Troponin T C-Reactive Protein NT-Pro-B Natriuret Pep Total Protein Albumin LDL Cholesterol Direct Vitamin B12 Urine WBC (Auto) Fluid Glucose Fluid Total Protein Vancomycin Trough Crossmatch 12/15/21 12/15/21 12/15/21 05:00 07:00 07:00 WBC 12.3 H RBC 3.27 L Hgb 8.8 L Hct 27.5 L D MCV MCH 27 L MCHC RDW 19.0 H Plt Count Eos % (Auto) Eos # (Auto) Seg Neuts % (Manual) Lymphocytes % (Manual) Seg Neutrophils # Seg Neutrophils # Man Lymphocytes # (Manual) Monocytes # (Manual) PT INR D-Dimer ABG pH ABG pO2 ABG HCO3 ABG O2 Saturation ABG Base Excess ABG Hemoglobin Oxyhemoglobin Sodium 134 L Potassium Chloride 95.7 L Carbon Dioxide BUN 28 H Creatinine Glucose 129 H POC Glucose 129 H Lactic Acid Calcium 8.2 L Phosphorus Magnesium AST ALT Alkaline Phosphatase Lactate Dehydrogenase Troponin T C-Reactive Protein NT-Pro-B Natriuret Pep Total Protein Albumin LDL Cholesterol Direct Vitamin B12 Urine WBC (Auto) Fluid Glucose Fluid Total Protein Vancomycin Trough Crossmatch 12/15/21 12/15/21 12/15/21 11:18 16:00 23:39 WBC RBC Hgb Hct MCV MCH MCHC RDW Plt Count Eos % (Auto) Eos # (Auto) Seg Neuts % (Manual) Lymphocytes % (Manual) Seg Neutrophils # Seg Neutrophils # Man Lymphocytes # (Manual) Monocytes # (Manual) PT INR D-Dimer ABG pH ABG pO2 ABG HCO3 ABG O2 Saturation ABG Base Excess ABG Hemoglobin Oxyhemoglobin Sodium Potassium Chloride Carbon Dioxide BUN Creatinine Glucose POC Glucose 139 H 137 H 146 H Lactic Acid Calcium Phosphorus Magnesium AST ALT Alkaline Phosphatase Lactate Dehydrogenase Troponin T C-Reactive Protein NT-Pro-B Natriuret Pep Total Protein Albumin LDL Cholesterol Direct Vitamin B12 Urine WBC (Auto) Fluid Glucose Fluid Total Protein Vancomycin Trough Crossmatch 12/16/21 12/16/21 12/16/21 05:24 10:21 10:21 WBC 15.3 H RBC 3.24 L Hgb 8.9 L Hct 27.7 L MCV MCH MCHC RDW 19.0 H Plt Count Eos % (Auto) Eos # (Auto) Seg Neuts % (Manual) Lymphocytes % (Manual) Seg Neutrophils # Seg Neutrophils # Man Lymphocytes # (Manual) Monocytes # (Manual) PT INR D-Dimer ABG pH ABG pO2 ABG HCO3 ABG O2 Saturation ABG Base Excess ABG Hemoglobin Oxyhemoglobin Sodium 131 L Potassium 3.5 L Chloride 92.7 L Carbon Dioxide BUN 36 H Creatinine Glucose 160 H POC Glucose 121 H Lactic Acid Calcium Phosphorus Magnesium 1.60 L AST ALT Alkaline Phosphatase Lactate Dehydrogenase Troponin T C-Reactive Protein NT-Pro-B Natriuret Pep Total Protein Albumin LDL Cholesterol Direct Vitamin B12 Urine WBC (Auto) Fluid Glucose Fluid Total Protein Vancomycin Trough Crossmatch 12/16/21 12/16/21 12/16/21 11:21 18:28 20:52 WBC RBC Hgb Hct MCV MCH MCHC RDW Plt Count Eos % (Auto) Eos # (Auto) Seg Neuts % (Manual) Lymphocytes % (Manual) Seg Neutrophils # Seg Neutrophils # Man Lymphocytes # (Manual) Monocytes # (Manual) PT INR D-Dimer ABG pH 7.479 H ABG pO2 79.3 L ABG HCO3 27.3 H ABG O2 Saturation ABG Base Excess 3.6 H ABG Hemoglobin 9.1 L Oxyhemoglobin 94.9 L Sodium Potassium Chloride Carbon Dioxide BUN Creatinine Glucose POC Glucose 153 H 132 H Lactic Acid Calcium Phosphorus Magnesium AST ALT Alkaline Phosphatase Lactate Dehydrogenase Troponin T C-Reactive Protein NT-Pro-B Natriuret Pep Total Protein Albumin LDL Cholesterol Direct Vitamin B12 Urine WBC (Auto) Fluid Glucose Fluid Total Protein Vancomycin Trough Crossmatch 12/16/21 12/17/21 12/17/21 23:30 04:25 04:25 WBC 12.3 H RBC 2.16 L Hgb 6.0 L Hct 18.1 L* D MCV MCH MCHC RDW 19.4 H Plt Count Eos % (Auto) Eos # (Auto) Seg Neuts % (Manual) Lymphocytes % (Manual) Seg Neutrophils # Seg Neutrophils # Man Lymphocytes # (Manual) Monocytes # (Manual) PT INR D-Dimer ABG pH ABG pO2 ABG HCO3 ABG O2 Saturation ABG Base Excess ABG Hemoglobin Oxyhemoglobin Sodium 132 L Potassium 3.2 L Chloride 112.0 H Carbon Dioxide BUN 32 H Creatinine Glucose 122 H POC Glucose 137 H Lactic Acid Calcium 6.8 L D Phosphorus Magnesium AST ALT Alkaline Phosphatase Lactate Dehydrogenase Troponin T C-Reactive Protein NT-Pro-B Natriuret Pep Total Protein Albumin LDL Cholesterol Direct Vitamin B12 Urine WBC (Auto) Fluid Glucose Fluid Total Protein Vancomycin Trough Crossmatch 12/17/21 12/17/21 12/17/21 05:30 11:49 14:45 WBC RBC Hgb 9.7 L D Hct MCV MCH MCHC RDW Plt Count Eos % (Auto) Eos # (Auto) Seg Neuts % (Manual) Lymphocytes % (Manual) Seg Neutrophils # Seg Neutrophils # Man Lymphocytes # (Manual) Monocytes # (Manual) PT INR D-Dimer ABG pH ABG pO2 ABG HCO3 ABG O2 Saturation ABG Base Excess ABG Hemoglobin Oxyhemoglobin Sodium Potassium Chloride Carbon Dioxide BUN Creatinine Glucose POC Glucose 137 H 143 H Lactic Acid Calcium Phosphorus Magnesium AST ALT Alkaline Phosphatase Lactate Dehydrogenase Troponin T C-Reactive Protein NT-Pro-B Natriuret Pep Total Protein Albumin LDL Cholesterol Direct Vitamin B12 Urine WBC (Auto) Fluid Glucose Fluid Total Protein Vancomycin Trough Crossmatch 12/17/21 12/18/21 12/18/21 17:01 05:04 05:04 WBC 13.8 H RBC 3.44 L Hgb 9.9 L Hct 28.8 L MCV MCH MCHC RDW 18.1 H Plt Count Eos % (Auto) Eos # (Auto) Seg Neuts % (Manual) Lymphocytes % (Manual) Seg Neutrophils # Seg Neutrophils # Man Lymphocytes # (Manual) Monocytes # (Manual) PT INR D-Dimer ABG pH ABG pO2 ABG HCO3 ABG O2 Saturation ABG Base Excess ABG Hemoglobin Oxyhemoglobin Sodium 132 L Potassium Chloride 97.4 L Carbon Dioxide BUN 38 H Creatinine Glucose 134 H POC Glucose 132 H Lactic Acid Calcium Phosphorus Magnesium AST ALT Alkaline Phosphatase Lactate Dehydrogenase Troponin T C-Reactive Protein NT-Pro-B Natriuret Pep Total Protein Albumin LDL Cholesterol Direct Vitamin B12 Urine WBC (Auto) Fluid Glucose Fluid Total Protein Vancomycin Trough Crossmatch 12/18/21 12/18/21 12/18/21 05:28 10:57 16:27 WBC RBC Hgb Hct MCV MCH MCHC RDW Plt Count Eos % (Auto) Eos # (Auto) Seg Neuts % (Manual) Lymphocytes % (Manual) Seg Neutrophils # Seg Neutrophils # Man Lymphocytes # (Manual) Monocytes # (Manual) PT INR D-Dimer ABG pH ABG pO2 ABG HCO3 ABG O2 Saturation ABG Base Excess ABG Hemoglobin Oxyhemoglobin Sodium Potassium Chloride Carbon Dioxide BUN Creatinine Glucose POC Glucose 118 H 132 H 130 H Lactic Acid Calcium Phosphorus Magnesium AST ALT Alkaline Phosphatase Lactate Dehydrogenase Troponin T C-Reactive Protein NT-Pro-B Natriuret Pep Total Protein Albumin LDL Cholesterol Direct Vitamin B12 Urine WBC (Auto) Fluid Glucose Fluid Total Protein Vancomycin Trough Crossmatch 12/19/21 12/19/21 12/19/21 00:02 04:41 04:41 WBC 16.0 H RBC 3.45 L Hgb 9.7 L Hct 29.1 L MCV MCH MCHC RDW 17.8 H Plt Count Eos % (Auto) Eos # (Auto) Seg Neuts % (Manual) Lymphocytes % (Manual) Seg Neutrophils # Seg Neutrophils # Man Lymphocytes # (Manual) Monocytes # (Manual) PT INR D-Dimer ABG pH ABG pO2 ABG HCO3 ABG O2 Saturation ABG Base Excess ABG Hemoglobin Oxyhemoglobin Sodium 133 L Potassium Chloride 97.9 L Carbon Dioxide BUN 36 H Creatinine 0.5 L Glucose 126 H POC Glucose 127 H Lactic Acid Calcium 8.3 L Phosphorus Magnesium AST ALT Alkaline Phosphatase Lactate Dehydrogenase Troponin T C-Reactive Protein NT-Pro-B Natriuret Pep Total Protein Albumin LDL Cholesterol Direct Vitamin B12 Urine WBC (Auto) Fluid Glucose Fluid Total Protein Vancomycin Trough Crossmatch 12/19/21 12/19/21 12/19/21 05:26 12:20 16:43 WBC RBC Hgb Hct MCV MCH MCHC RDW Plt Count Eos % (Auto) Eos # (Auto) Seg Neuts % (Manual) Lymphocytes % (Manual) Seg Neutrophils # Seg Neutrophils # Man Lymphocytes # (Manual) Monocytes # (Manual) PT INR D-Dimer ABG pH ABG pO2 ABG HCO3 ABG O2 Saturation ABG Base Excess ABG Hemoglobin Oxyhemoglobin Sodium Potassium Chloride Carbon Dioxide BUN Creatinine Glucose POC Glucose 119 H 145 H 126 H Lactic Acid Calcium Phosphorus Magnesium AST ALT Alkaline Phosphatase Lactate Dehydrogenase Troponin T C-Reactive Protein NT-Pro-B Natriuret Pep Total Protein Albumin LDL Cholesterol Direct Vitamin B12 Urine WBC (Auto) Fluid Glucose Fluid Total Protein Vancomycin Trough Crossmatch 12/19/21 12/20/21 12/20/21 23:30 04:54 04:54 WBC 12.3 H RBC 3.54 L Hgb 10.0 L Hct 29.5 L MCV MCH MCHC RDW 17.8 H Plt Count Eos % (Auto) Eos # (Auto) Seg Neuts % (Manual) 88.0 H Lymphocytes % (Manual) 6.0 L Seg Neutrophils # Seg Neutrophils # Man 10.8 H Lymphocytes # (Manual) 0.7 L Monocytes # (Manual) PT INR D-Dimer ABG pH ABG pO2 ABG HCO3 ABG O2 Saturation ABG Base Excess ABG Hemoglobin Oxyhemoglobin Sodium 131 L Potassium Chloride 96.2 L Carbon Dioxide BUN 36 H Creatinine 0.5 L Glucose 130 H POC Glucose 117 H Lactic Acid Calcium Phosphorus Magnesium AST ALT Alkaline Phosphatase Lactate Dehydrogenase Troponin T C-Reactive Protein NT-Pro-B Natriuret Pep Total Protein Albumin LDL Cholesterol Direct Vitamin B12 Urine WBC (Auto) Fluid Glucose Fluid Total Protein Vancomycin Trough Crossmatch 12/20/21 12/20/21 12/20/21 05:20 11:51 17:30 WBC RBC Hgb Hct MCV MCH MCHC RDW Plt Count Eos % (Auto) Eos # (Auto) Seg Neuts % (Manual) Lymphocytes % (Manual) Seg Neutrophils # Seg Neutrophils # Man Lymphocytes # (Manual) Monocytes # (Manual) PT INR D-Dimer ABG pH ABG pO2 ABG HCO3 ABG O2 Saturation ABG Base Excess ABG Hemoglobin Oxyhemoglobin Sodium Potassium Chloride Carbon Dioxide BUN Creatinine Glucose POC Glucose 126 H 119 H 127 H Lactic Acid Calcium Phosphorus Magnesium AST ALT Alkaline Phosphatase Lactate Dehydrogenase Troponin T C-Reactive Protein NT-Pro-B Natriuret Pep Total Protein Albumin LDL Cholesterol Direct Vitamin B12 Urine WBC (Auto) Fluid Glucose Fluid Total Protein Vancomycin Trough Crossmatch 12/21/21 12/21/21 12/21/21 00:45 04:21 04:21 WBC RBC 3.47 L Hgb 9.4 L Hct 29.2 L MCV MCH 27 L MCHC RDW 18.1 H Plt Count Eos % (Auto) Eos # (Auto) Seg Neuts % (Manual) Lymphocytes % (Manual) Seg Neutrophils # Seg Neutrophils # Man Lymphocytes # (Manual) Monocytes # (Manual) PT INR D-Dimer ABG pH ABG pO2 ABG HCO3 ABG O2 Saturation ABG Base Excess ABG Hemoglobin Oxyhemoglobin Sodium 134 L Potassium Chloride Carbon Dioxide BUN 35 H Creatinine 0.5 L Glucose 122 H POC Glucose 125 H Lactic Acid Calcium 8.2 L Phosphorus Magnesium AST ALT Alkaline Phosphatase Lactate Dehydrogenase Troponin T C-Reactive Protein NT-Pro-B Natriuret Pep Total Protein Albumin LDL Cholesterol Direct Vitamin B12 Urine WBC (Auto) Fluid Glucose Fluid Total Protein Vancomycin Trough Crossmatch 12/21/21 12/21/21 12/21/21 05:38 11:29 16:16 WBC RBC Hgb Hct MCV MCH MCHC RDW Plt Count Eos % (Auto) Eos # (Auto) Seg Neuts % (Manual) Lymphocytes % (Manual) Seg Neutrophils # Seg Neutrophils # Man Lymphocytes # (Manual) Monocytes # (Manual) PT INR D-Dimer ABG pH ABG pO2 ABG HCO3 ABG O2 Saturation ABG Base Excess ABG Hemoglobin Oxyhemoglobin Sodium Potassium Chloride Carbon Dioxide BUN Creatinine Glucose POC Glucose 127 H 121 H 113 H Lactic Acid Calcium Phosphorus Magnesium AST ALT Alkaline Phosphatase Lactate Dehydrogenase Troponin T C-Reactive Protein NT-Pro-B Natriuret Pep Total Protein Albumin LDL Cholesterol Direct Vitamin B12 Urine WBC (Auto) Fluid Glucose Fluid Total Protein Vancomycin Trough Crossmatch 12/22/21 12/22/21 12/23/21 04:58 04:58 06:40 WBC 11.5 H RBC 3.43 L Hgb 9.8 L Hct 28.7 L MCV MCH MCHC RDW 18.5 H 17.9 H Plt Count Eos % (Auto) Eos # (Auto) Seg Neuts % (Manual) Lymphocytes % (Manual) Seg Neutrophils # Seg Neutrophils # Man Lymphocytes # (Manual) Monocytes # (Manual) PT INR D-Dimer ABG pH ABG pO2 ABG HCO3 ABG O2 Saturation ABG Base Excess ABG Hemoglobin Oxyhemoglobin Sodium 130 L Potassium Chloride 97.8 L Carbon Dioxide BUN 31 H Creatinine 0.5 L Glucose 122 H POC Glucose Lactic Acid Calcium 7.9 L Phosphorus Magnesium AST ALT Alkaline Phosphatase Lactate Dehydrogenase Troponin T C-Reactive Protein NT-Pro-B Natriuret Pep Total Protein Albumin LDL Cholesterol Direct Vitamin B12 Urine WBC (Auto) Fluid Glucose Fluid Total Protein Vancomycin Trough Crossmatch 12/23/21 12/23/21 12/24/21 06:40 23:25 04:24 WBC 11.7 H RBC Hgb 9.8 L Hct MCV MCH 26 L MCHC RDW 18.1 H Plt Count Eos % (Auto) Eos # (Auto) Seg Neuts % (Manual) Lymphocytes % (Manual) Seg Neutrophils # Seg Neutrophils # Man Lymphocytes # (Manual) Monocytes # (Manual) PT INR D-Dimer ABG pH ABG pO2 ABG HCO3 ABG O2 Saturation ABG Base Excess ABG Hemoglobin Oxyhemoglobin Sodium 136 L Potassium Chloride Carbon Dioxide BUN 27 H Creatinine 0.4 L Glucose 107 H POC Glucose 110 H Lactic Acid Calcium 8.1 L Phosphorus Magnesium AST ALT Alkaline Phosphatase Lactate Dehydrogenase Troponin T C-Reactive Protein NT-Pro-B Natriuret Pep Total Protein Albumin LDL Cholesterol Direct Vitamin B12 Urine WBC (Auto) Fluid Glucose Fluid Total Protein Vancomycin Trough Crossmatch 12/24/21 12/24/21 12/24/21 04:24 11:08 15:45 WBC RBC Hgb Hct MCV MCH MCHC RDW Plt Count Eos % (Auto) Eos # (Auto) Seg Neuts % (Manual) Lymphocytes % (Manual) Seg Neutrophils # Seg Neutrophils # Man Lymphocytes # (Manual) Monocytes # (Manual) PT INR D-Dimer ABG pH ABG pO2 ABG HCO3 ABG O2 Saturation ABG Base Excess ABG Hemoglobin Oxyhemoglobin Sodium 132 L Potassium Chloride Carbon Dioxide BUN 27 H Creatinine 0.3 L Glucose 108 H POC Glucose 116 H 107 H Lactic Acid Calcium Phosphorus Magnesium AST ALT Alkaline Phosphatase Lactate Dehydrogenase Troponin T C-Reactive Protein NT-Pro-B Natriuret Pep Total Protein Albumin LDL Cholesterol Direct Vitamin B12 Urine WBC (Auto) Fluid Glucose Fluid Total Protein Vancomycin Trough Crossmatch 12/24/21 12/25/21 12/25/21 23:43 05:29 11:48 WBC RBC Hgb Hct MCV MCH MCHC RDW Plt Count Eos % (Auto) Eos # (Auto) Seg Neuts % (Manual) Lymphocytes % (Manual) Seg Neutrophils # Seg Neutrophils # Man Lymphocytes # (Manual) Monocytes # (Manual) PT INR D-Dimer ABG pH ABG pO2 ABG HCO3 ABG O2 Saturation ABG Base Excess ABG Hemoglobin Oxyhemoglobin Sodium Potassium Chloride Carbon Dioxide BUN Creatinine Glucose POC Glucose 123 H 107 H 119 H Lactic Acid Calcium Phosphorus Magnesium AST ALT Alkaline Phosphatase Lactate Dehydrogenase Troponin T C-Reactive Protein NT-Pro-B Natriuret Pep Total Protein Albumin LDL Cholesterol Direct Vitamin B12 Urine WBC (Auto) Fluid Glucose Fluid Total Protein Vancomycin Trough Crossmatch 12/26/21 12/26/21 12/26/21 00:06 05:56 07:51 WBC 11.4 H RBC 3.40 L Hgb 9.3 L Hct 28.3 L MCV MCH 27 L MCHC RDW 18.2 H Plt Count Eos % (Auto) Eos # (Auto) Seg Neuts % (Manual) Lymphocytes % (Manual) Seg Neutrophils # Seg Neutrophils # Man Lymphocytes # (Manual) Monocytes # (Manual) PT INR D-Dimer ABG pH ABG pO2 ABG HCO3 ABG O2 Saturation ABG Base Excess ABG Hemoglobin Oxyhemoglobin Sodium Potassium Chloride Carbon Dioxide BUN Creatinine Glucose POC Glucose 133 H 107 H Lactic Acid Calcium Phosphorus Magnesium AST ALT Alkaline Phosphatase Lactate Dehydrogenase Troponin T C-Reactive Protein NT-Pro-B Natriuret Pep Total Protein Albumin LDL Cholesterol Direct Vitamin B12 Urine WBC (Auto) Fluid Glucose Fluid Total Protein Vancomycin Trough Crossmatch 12/26/21 12/26/21 12/26/21 07:51 11:43 17:06 WBC RBC Hgb Hct MCV MCH MCHC RDW Plt Count Eos % (Auto) Eos # (Auto) Seg Neuts % (Manual) Lymphocytes % (Manual) Seg Neutrophils # Seg Neutrophils # Man Lymphocytes # (Manual) Monocytes # (Manual) PT INR D-Dimer ABG pH ABG pO2 ABG HCO3 ABG O2 Saturation ABG Base Excess ABG Hemoglobin Oxyhemoglobin Sodium 136 L Potassium Chloride Carbon Dioxide BUN 25 H Creatinine 0.3 L Glucose 131 H POC Glucose 119 H 128 H Lactic Acid Calcium Phosphorus Magnesium AST ALT Alkaline Phosphatase Lactate Dehydrogenase Troponin T C-Reactive Protein NT-Pro-B Natriuret Pep Total Protein Albumin LDL Cholesterol Direct Vitamin B12 Urine WBC (Auto) Fluid Glucose Fluid Total Protein Vancomycin Trough Crossmatch 12/28/21 12/28/21 12/29/21 09:05 09:05 04:40 WBC RBC 3.19 L Hgb 8.9 L Hct 26.4 L MCV MCH 27 L MCHC RDW 18.4 H 17.9 H Plt Count Eos % (Auto) Eos # (Auto) Seg Neuts % (Manual) Lymphocytes % (Manual) Seg Neutrophils # Seg Neutrophils # Man Lymphocytes # (Manual) Monocytes # (Manual) PT INR D-Dimer ABG pH ABG pO2 ABG HCO3 ABG O2 Saturation ABG Base Excess ABG Hemoglobin Oxyhemoglobin Sodium 135 L Potassium Chloride 97.8 L Carbon Dioxide BUN 18 H Creatinine 0.3 L Glucose POC Glucose Lactic Acid Calcium Phosphorus Magnesium AST ALT Alkaline Phosphatase Lactate Dehydrogenase Troponin T C-Reactive Protein NT-Pro-B Natriuret Pep Total Protein Albumin LDL Cholesterol Direct Vitamin B12 Urine WBC (Auto) Fluid Glucose Fluid Total Protein Vancomycin Trough Crossmatch 12/29/21 12/29/21 12/30/21 04:40 12:47 04:05 WBC RBC 3.29 L Hgb 8.7 L Hct 27.6 L MCV MCH 27 L MCHC RDW 17.6 H Plt Count Eos % (Auto) Eos # (Auto) Seg Neuts % (Manual) Lymphocytes % (Manual) Seg Neutrophils # Seg Neutrophils # Man Lymphocytes # (Manual) Monocytes # (Manual) PT INR D-Dimer ABG pH ABG pO2 ABG HCO3 ABG O2 Saturation ABG Base Excess ABG Hemoglobin Oxyhemoglobin Sodium 136 L Potassium Chloride Carbon Dioxide BUN Creatinine 0.3 L Glucose POC Glucose 67 L Lactic Acid Calcium 8.3 L Phosphorus Magnesium AST ALT Alkaline Phosphatase Lactate Dehydrogenase Troponin T C-Reactive Protein NT-Pro-B Natriuret Pep Total Protein Albumin LDL Cholesterol Direct Vitamin B12 Urine WBC (Auto) Fluid Glucose Fluid Total Protein Vancomycin Trough Crossmatch 12/30/21 12/31/21 12/31/21 04:05 00:07 04:00 WBC RBC 3.05 L Hgb 8.5 L Hct 25.5 L MCV MCH MCHC RDW 18.2 H Plt Count Eos % (Auto) Eos # (Auto) Seg Neuts % (Manual) Lymphocytes % (Manual) Seg Neutrophils # Seg Neutrophils # Man Lymphocytes # (Manual) Monocytes # (Manual) PT INR D-Dimer ABG pH ABG pO2 ABG HCO3 ABG O2 Saturation ABG Base Excess ABG Hemoglobin Oxyhemoglobin Sodium 136 L Potassium 3.5 L Chloride Carbon Dioxide BUN Creatinine 0.4 L Glucose POC Glucose 139 H Lactic Acid Calcium Phosphorus Magnesium 1.50 L AST ALT Alkaline Phosphatase Lactate Dehydrogenase Troponin T C-Reactive Protein NT-Pro-B Natriuret Pep Total Protein Albumin LDL Cholesterol Direct Vitamin B12 Urine WBC (Auto) Fluid Glucose Fluid Total Protein Vancomycin Trough Crossmatch 12/31/21 12/31/21 12/31/21 04:00 04:52 11:23 WBC RBC Hgb Hct MCV MCH MCHC RDW Plt Count Eos % (Auto) Eos # (Auto) Seg Neuts % (Manual) Lymphocytes % (Manual) Seg Neutrophils # Seg Neutrophils # Man Lymphocytes # (Manual) Monocytes # (Manual) PT INR D-Dimer ABG pH ABG pO2 ABG HCO3 ABG O2 Saturation ABG Base Excess ABG Hemoglobin Oxyhemoglobin Sodium Potassium Chloride Carbon Dioxide BUN 19 H Creatinine 0.4 L Glucose 116 H POC Glucose 121 H 116 H Lactic Acid Calcium Phosphorus Magnesium AST ALT Alkaline Phosphatase Lactate Dehydrogenase Troponin T C-Reactive Protein NT-Pro-B Natriuret Pep Total Protein Albumin LDL Cholesterol Direct Vitamin B12 Urine WBC (Auto) Fluid Glucose Fluid Total Protein Vancomycin Trough Crossmatch 12/31/21 01/01/22 01/01/22 17:42 04:31 04:31 WBC RBC 2.83 L Hgb 7.7 L Hct 23.2 L MCV MCH 27 L MCHC RDW 18.3 H Plt Count Eos % (Auto) Eos # (Auto) Seg Neuts % (Manual) Lymphocytes % (Manual) Seg Neutrophils # Seg Neutrophils # Man Lymphocytes # (Manual) Monocytes # (Manual) PT INR D-Dimer ABG pH ABG pO2 ABG HCO3 ABG O2 Saturation ABG Base Excess ABG Hemoglobin Oxyhemoglobin Sodium 135 L Potassium Chloride 97.7 L Carbon Dioxide BUN 21 H Creatinine 0.5 L Glucose 127 H POC Glucose 107 H Lactic Acid Calcium 8.0 L Phosphorus Magnesium AST ALT Alkaline Phosphatase Lactate Dehydrogenase Troponin T C-Reactive Protein NT-Pro-B Natriuret Pep Total Protein Albumin LDL Cholesterol Direct Vitamin B12 Urine WBC (Auto) Fluid Glucose Fluid Total Protein Vancomycin Trough Crossmatch 01/01/22 01/01/22 01/01/22 05:24 11:25 18:11 WBC RBC Hgb Hct MCV MCH MCHC RDW Plt Count Eos % (Auto) Eos # (Auto) Seg Neuts % (Manual) Lymphocytes % (Manual) Seg Neutrophils # Seg Neutrophils # Man Lymphocytes # (Manual) Monocytes # (Manual) PT INR D-Dimer ABG pH ABG pO2 ABG HCO3 ABG O2 Saturation ABG Base Excess ABG Hemoglobin Oxyhemoglobin Sodium Potassium Chloride Carbon Dioxide BUN Creatinine Glucose POC Glucose 124 H 140 H 144 H Lactic Acid Calcium Phosphorus Magnesium AST ALT Alkaline Phosphatase Lactate Dehydrogenase Troponin T C-Reactive Protein NT-Pro-B Natriuret Pep Total Protein Albumin LDL Cholesterol Direct Vitamin B12 Urine WBC (Auto) Fluid Glucose Fluid Total Protein Vancomycin Trough Crossmatch 01/01/22 01/02/22 01/02/22 23:26 04:01 04:01 WBC RBC 2.57 L Hgb 7.1 L Hct 21.5 L MCV MCH MCHC RDW 18.1 H Plt Count Eos % (Auto) Eos # (Auto) Seg Neuts % (Manual) Lymphocytes % (Manual) Seg Neutrophils # Seg Neutrophils # Man Lymphocytes # (Manual) Monocytes # (Manual) PT INR D-Dimer ABG pH ABG pO2 ABG HCO3 ABG O2 Saturation ABG Base Excess ABG Hemoglobin Oxyhemoglobin Sodium 131 L Potassium 3.5 L Chloride 94.8 L Carbon Dioxide BUN 27 H Creatinine Glucose 121 H POC Glucose 121 H Lactic Acid Calcium Phosphorus Magnesium AST ALT Alkaline Phosphatase Lactate Dehydrogenase Troponin T C-Reactive Protein NT-Pro-B Natriuret Pep Total Protein Albumin LDL Cholesterol Direct Vitamin B12 Urine WBC (Auto) Fluid Glucose Fluid Total Protein Vancomycin Trough Crossmatch 01/02/22 01/02/22 01/02/22 05:30 11:10 16:08 WBC RBC Hgb Hct MCV MCH MCHC RDW Plt Count Eos % (Auto) Eos # (Auto) Seg Neuts % (Manual) Lymphocytes % (Manual) Seg Neutrophils # Seg Neutrophils # Man Lymphocytes # (Manual) Monocytes # (Manual) PT INR D-Dimer ABG pH ABG pO2 ABG HCO3 ABG O2 Saturation ABG Base Excess ABG Hemoglobin Oxyhemoglobin Sodium Potassium Chloride Carbon Dioxide BUN Creatinine Glucose POC Glucose 124 H 117 H 130 H Lactic Acid Calcium Phosphorus Magnesium AST ALT Alkaline Phosphatase Lactate Dehydrogenase Troponin T C-Reactive Protein NT-Pro-B Natriuret Pep Total Protein Albumin LDL Cholesterol Direct Vitamin B12 Urine WBC (Auto) Fluid Glucose Fluid Total Protein Vancomycin Trough Crossmatch 01/02/22 01/02/22 01/03/22 17:30 23:26 04:53 WBC RBC 2.82 L Hgb 7.7 L Hct 23.4 L MCV MCH 27 L MCHC RDW 18.0 H Plt Count Eos % (Auto) Eos # (Auto) Seg Neuts % (Manual) Lymphocytes % (Manual) Seg Neutrophils # Seg Neutrophils # Man Lymphocytes # (Manual) Monocytes # (Manual) PT INR D-Dimer ABG pH ABG pO2 ABG HCO3 ABG O2 Saturation ABG Base Excess ABG Hemoglobin Oxyhemoglobin Sodium Potassium Chloride Carbon Dioxide BUN Creatinine Glucose POC Glucose 114 H Lactic Acid Calcium Phosphorus Magnesium AST ALT Alkaline Phosphatase Lactate Dehydrogenase Troponin T C-Reactive Protein NT-Pro-B Natriuret Pep Total Protein Albumin LDL Cholesterol Direct Vitamin B12 Urine WBC (Auto) Fluid Glucose Fluid Total Protein Vancomycin Trough 22.8 H Crossmatch 01/03/22 01/03/22 01/03/22 04:53 06:23 17:35 WBC RBC Hgb Hct MCV MCH MCHC RDW Plt Count Eos % (Auto) Eos # (Auto) Seg Neuts % (Manual) Lymphocytes % (Manual) Seg Neutrophils # Seg Neutrophils # Man Lymphocytes # (Manual) Monocytes # (Manual) PT INR D-Dimer ABG pH ABG pO2 ABG HCO3 ABG O2 Saturation ABG Base Excess ABG Hemoglobin Oxyhemoglobin Sodium 133 L Potassium Chloride 96.2 L Carbon Dioxide BUN 30 H Creatinine Glucose 107 H POC Glucose 122 H 107 H Lactic Acid Calcium Phosphorus Magnesium AST ALT Alkaline Phosphatase Lactate Dehydrogenase Troponin T C-Reactive Protein NT-Pro-B Natriuret Pep Total Protein Albumin LDL Cholesterol Direct Vitamin B12 Urine WBC (Auto) Fluid Glucose Fluid Total Protein Vancomycin Trough Crossmatch 01/04/22 01/04/22 01/04/22 04:00 12:32 16:45 WBC RBC Hgb Hct MCV MCH MCHC RDW Plt Count Eos % (Auto) Eos # (Auto) Seg Neuts % (Manual) Lymphocytes % (Manual) Seg Neutrophils # Seg Neutrophils # Man Lymphocytes # (Manual) Monocytes # (Manual) PT INR D-Dimer ABG pH ABG pO2 ABG HCO3 ABG O2 Saturation ABG Base Excess ABG Hemoglobin Oxyhemoglobin Sodium 132 L Potassium Chloride 92.8 L Carbon Dioxide BUN 30 H Creatinine Glucose 115 H POC Glucose 111 H 111 H Lactic Acid Calcium Phosphorus Magnesium 1.60 L AST ALT Alkaline Phosphatase Lactate Dehydrogenase Troponin T C-Reactive Protein NT-Pro-B Natriuret Pep Total Protein Albumin LDL Cholesterol Direct Vitamin B12 Urine WBC (Auto) Fluid Glucose Fluid Total Protein Vancomycin Trough Crossmatch 01/05/22 01/05/22 01/05/22 04:30 04:30 17:04 WBC RBC 3.11 L Hgb 8.4 L Hct 25.5 L MCV MCH 27 L MCHC RDW 17.6 H Plt Count Eos % (Auto) Eos # (Auto) Seg Neuts % (Manual) Lymphocytes % (Manual) Seg Neutrophils # Seg Neutrophils # Man Lymphocytes # (Manual) Monocytes # (Manual) PT INR D-Dimer ABG pH ABG pO2 ABG HCO3 ABG O2 Saturation ABG Base Excess ABG Hemoglobin Oxyhemoglobin Sodium 135 L Potassium Chloride 93.6 L Carbon Dioxide BUN 29 H Creatinine Glucose POC Glucose 67 L Lactic Acid Calcium Phosphorus Magnesium AST ALT Alkaline Phosphatase Lactate Dehydrogenase Troponin T C-Reactive Protein NT-Pro-B Natriuret Pep Total Protein Albumin LDL Cholesterol Direct Vitamin B12 Urine WBC (Auto) Fluid Glucose Fluid Total Protein Vancomycin Trough Crossmatch 01/05/22 01/06/22 01/06/22 23:27 04:06 04:06 WBC RBC 2.89 L Hgb 7.7 L Hct 23.8 L MCV MCH 27 L MCHC RDW 18.0 H Plt Count Eos % (Auto) Eos # (Auto) Seg Neuts % (Manual) Lymphocytes % (Manual) Seg Neutrophils # Seg Neutrophils # Man Lymphocytes # (Manual) Monocytes # (Manual) PT 16.9 H INR 1.23 H D-Dimer ABG pH ABG pO2 ABG HCO3 ABG O2 Saturation ABG Base Excess ABG Hemoglobin Oxyhemoglobin Sodium Potassium Chloride Carbon Dioxide BUN Creatinine Glucose POC Glucose 110 H Lactic Acid Calcium Phosphorus Magnesium AST ALT Alkaline Phosphatase Lactate Dehydrogenase Troponin T C-Reactive Protein NT-Pro-B Natriuret Pep Total Protein Albumin LDL Cholesterol Direct Vitamin B12 Urine WBC (Auto) Fluid Glucose Fluid Total Protein Vancomycin Trough Crossmatch 01/06/22 01/06/22 01/06/22 04:06 13:40 23:41 WBC RBC Hgb Hct MCV MCH MCHC RDW Plt Count Eos % (Auto) Eos # (Auto) Seg Neuts % (Manual) Lymphocytes % (Manual) Seg Neutrophils # Seg Neutrophils # Man Lymphocytes # (Manual) Monocytes # (Manual) PT INR D-Dimer ABG pH ABG pO2 ABG HCO3 ABG O2 Saturation ABG Base Excess ABG Hemoglobin Oxyhemoglobin Sodium 132 L Potassium Chloride 92.3 L Carbon Dioxide BUN 26 H Creatinine Glucose 111 H POC Glucose 120 H Lactic Acid Calcium Phosphorus Magnesium AST ALT Alkaline Phosphatase Lactate Dehydrogenase Troponin T C-Reactive Protein NT-Pro-B Natriuret Pep Total Protein Albumin LDL Cholesterol Direct Vitamin B12 Urine WBC (Auto) Fluid Glucose 96 H Fluid Total Protein < 3.0 L Vancomycin Trough Crossmatch 01/07/22 01/07/22 01/07/22 05:20 11:30 17:00 WBC RBC Hgb Hct MCV MCH MCHC RDW Plt Count Eos % (Auto) Eos # (Auto) Seg Neuts % (Manual) Lymphocytes % (Manual) Seg Neutrophils # Seg Neutrophils # Man Lymphocytes # (Manual) Monocytes # (Manual) PT INR D-Dimer ABG pH ABG pO2 ABG HCO3 ABG O2 Saturation ABG Base Excess ABG Hemoglobin Oxyhemoglobin Sodium Potassium Chloride Carbon Dioxide BUN Creatinine Glucose POC Glucose 111 H 113 H 121 H Lactic Acid Calcium Phosphorus Magnesium AST ALT Alkaline Phosphatase Lactate Dehydrogenase Troponin T C-Reactive Protein NT-Pro-B Natriuret Pep Total Protein Albumin LDL Cholesterol Direct Vitamin B12 Urine WBC (Auto) Fluid Glucose Fluid Total Protein Vancomycin Trough Crossmatch 01/07/22 01/08/22 01/08/22 23:41 11:26 16:23 WBC RBC Hgb Hct MCV MCH MCHC RDW Plt Count Eos % (Auto) Eos # (Auto) Seg Neuts % (Manual) Lymphocytes % (Manual) Seg Neutrophils # Seg Neutrophils # Man Lymphocytes # (Manual) Monocytes # (Manual) PT INR D-Dimer ABG pH ABG pO2 ABG HCO3 ABG O2 Saturation ABG Base Excess ABG Hemoglobin Oxyhemoglobin Sodium Potassium Chloride Carbon Dioxide BUN Creatinine Glucose POC Glucose 110 H 129 H 118 H Lactic Acid Calcium Phosphorus Magnesium AST ALT Alkaline Phosphatase Lactate Dehydrogenase Troponin T C-Reactive Protein NT-Pro-B Natriuret Pep Total Protein Albumin LDL Cholesterol Direct Vitamin B12 Urine WBC (Auto) Fluid Glucose Fluid Total Protein Vancomycin Trough Crossmatch 01/09/22 01/10/22 01/10/22 18:13 00:27 04:00 WBC RBC Hgb Hct MCV MCH MCHC RDW Plt Count Eos % (Auto) Eos # (Auto) Seg Neuts % (Manual) Lymphocytes % (Manual) Seg Neutrophils # Seg Neutrophils # Man Lymphocytes # (Manual) Monocytes # (Manual) PT INR D-Dimer ABG pH ABG pO2 ABG HCO3 ABG O2 Saturation ABG Base Excess ABG Hemoglobin Oxyhemoglobin Sodium 133 L Potassium Chloride 92.6 L Carbon Dioxide 31 H BUN 29 H Creatinine 0.5 L Glucose 115 H POC Glucose 118 H 111 H Lactic Acid Calcium Phosphorus Magnesium AST ALT Alkaline Phosphatase Lactate Dehydrogenase Troponin T C-Reactive Protein NT-Pro-B Natriuret Pep Total Protein Albumin LDL Cholesterol Direct Vitamin B12 Urine WBC (Auto) Fluid Glucose Fluid Total Protein Vancomycin Trough Crossmatch 01/10/22 01/11/22 01/11/22 05:47 05:10 11:14 WBC RBC Hgb Hct MCV MCH MCHC RDW Plt Count Eos % (Auto) Eos # (Auto) Seg Neuts % (Manual) Lymphocytes % (Manual) Seg Neutrophils # Seg Neutrophils # Man Lymphocytes # (Manual) Monocytes # (Manual) PT INR D-Dimer ABG pH ABG pO2 ABG HCO3 ABG O2 Saturation ABG Base Excess ABG Hemoglobin Oxyhemoglobin Sodium Potassium Chloride Carbon Dioxide BUN Creatinine Glucose POC Glucose 106 H 118 H 136 H Lactic Acid Calcium Phosphorus Magnesium AST ALT Alkaline Phosphatase Lactate Dehydrogenase Troponin T C-Reactive Protein NT-Pro-B Natriuret Pep Total Protein Albumin LDL Cholesterol Direct Vitamin B12 Urine WBC (Auto) Fluid Glucose Fluid Total Protein Vancomycin Trough Crossmatch 01/11/22 01/11/22 01/12/22 17:14 23:52 05:39 WBC RBC Hgb Hct MCV MCH MCHC RDW Plt Count Eos % (Auto) Eos # (Auto) Seg Neuts % (Manual) Lymphocytes % (Manual) Seg Neutrophils # Seg Neutrophils # Man Lymphocytes # (Manual) Monocytes # (Manual) PT INR D-Dimer ABG pH ABG pO2 ABG HCO3 ABG O2 Saturation ABG Base Excess ABG Hemoglobin Oxyhemoglobin Sodium Potassium Chloride Carbon Dioxide BUN Creatinine Glucose POC Glucose 117 H 110 H 110 H Lactic Acid Calcium Phosphorus Magnesium AST ALT Alkaline Phosphatase Lactate Dehydrogenase Troponin T C-Reactive Protein NT-Pro-B Natriuret Pep Total Protein Albumin LDL Cholesterol Direct Vitamin B12 Urine WBC (Auto) Fluid Glucose Fluid Total Protein Vancomycin Trough Crossmatch 01/13/22 01/13/22 01/14/22 11:15 17:21 05:33 WBC RBC Hgb Hct MCV MCH MCHC RDW Plt Count Eos % (Auto) Eos # (Auto) Seg Neuts % (Manual) Lymphocytes % (Manual) Seg Neutrophils # Seg Neutrophils # Man Lymphocytes # (Manual) Monocytes # (Manual) PT INR D-Dimer ABG pH ABG pO2 ABG HCO3 ABG O2 Saturation ABG Base Excess ABG Hemoglobin Oxyhemoglobin Sodium Potassium Chloride Carbon Dioxide BUN Creatinine Glucose POC Glucose 113 H 121 H 136 H Lactic Acid Calcium Phosphorus Magnesium AST ALT Alkaline Phosphatase Lactate Dehydrogenase Troponin T C-Reactive Protein NT-Pro-B Natriuret Pep Total Protein Albumin LDL Cholesterol Direct Vitamin B12 Urine WBC (Auto) Fluid Glucose Fluid Total Protein Vancomycin Trough Crossmatch 01/14/22 01/15/22 01/15/22 11:28 00:13 05:24 WBC RBC Hgb Hct MCV MCH MCHC RDW Plt Count Eos % (Auto) Eos # (Auto) Seg Neuts % (Manual) Lymphocytes % (Manual) Seg Neutrophils # Seg Neutrophils # Man Lymphocytes # (Manual) Monocytes # (Manual) PT INR D-Dimer ABG pH ABG pO2 ABG HCO3 ABG O2 Saturation ABG Base Excess ABG Hemoglobin Oxyhemoglobin Sodium Potassium Chloride Carbon Dioxide BUN Creatinine Glucose POC Glucose 117 H 109 H 117 H Lactic Acid Calcium Phosphorus Magnesium AST ALT Alkaline Phosphatase Lactate Dehydrogenase Troponin T C-Reactive Protein NT-Pro-B Natriuret Pep Total Protein Albumin LDL Cholesterol Direct Vitamin B12 Urine WBC (Auto) Fluid Glucose Fluid Total Protein Vancomycin Trough Crossmatch 01/15/22 01/15/22 01/15/22 11:38 14:36 17:05 WBC RBC 3.11 L Hgb 8.4 L Hct 25.7 L MCV MCH 27 L MCHC RDW 17.2 H Plt Count Eos % (Auto) Eos # (Auto) Seg Neuts % (Manual) 82.0 H Lymphocytes % (Manual) 11.0 L Seg Neutrophils # Seg Neutrophils # Man 8.8 H Lymphocytes # (Manual) Monocytes # (Manual) PT INR D-Dimer ABG pH ABG pO2 ABG HCO3 ABG O2 Saturation ABG Base Excess ABG Hemoglobin Oxyhemoglobin Sodium Potassium Chloride Carbon Dioxide BUN Creatinine Glucose POC Glucose 107 H 108 H Lactic Acid Calcium Phosphorus Magnesium AST ALT Alkaline Phosphatase Lactate Dehydrogenase Troponin T C-Reactive Protein NT-Pro-B Natriuret Pep Total Protein Albumin LDL Cholesterol Direct Vitamin B12 Urine WBC (Auto) Fluid Glucose Fluid Total Protein Vancomycin Trough Crossmatch 01/15/22 01/15/22 01/15/22 21:07 Unknown Unknown WBC RBC 2.97 L Hgb 8.0 L Hct 24.3 L MCV MCH 27 L MCHC RDW 17.2 H Plt Count Eos % (Auto) Eos # (Auto) Seg Neuts % (Manual) Lymphocytes % (Manual) Seg Neutrophils # Seg Neutrophils # Man Lymphocytes # (Manual) Monocytes # (Manual) PT INR D-Dimer ABG pH ABG pO2 ABG HCO3 ABG O2 Saturation ABG Base Excess ABG Hemoglobin Oxyhemoglobin Sodium 131 L Potassium Chloride 93.1 L Carbon Dioxide BUN 27 H Creatinine Glucose 110 H POC Glucose Lactic Acid Calcium 8.3 L Phosphorus Magnesium AST ALT Alkaline Phosphatase Lactate Dehydrogenase Troponin T 0.088 H C-Reactive Protein NT-Pro-B Natriuret Pep Total Protein Albumin LDL Cholesterol Direct 44 L Vitamin B12 Urine WBC (Auto) Fluid Glucose Fluid Total Protein Vancomycin Trough Crossmatch 01/15/22 01/16/22 01/16/22 Unknown 05:21 12:59 WBC RBC Hgb Hct MCV MCH MCHC RDW Plt Count Eos % (Auto) Eos # (Auto) Seg Neuts % (Manual) Lymphocytes % (Manual) Seg Neutrophils # Seg Neutrophils # Man Lymphocytes # (Manual) Monocytes # (Manual) PT INR D-Dimer ABG pH ABG pO2 ABG HCO3 ABG O2 Saturation ABG Base Excess ABG Hemoglobin Oxyhemoglobin Sodium 134 L 134 L Potassium 3.4 L Chloride 93.9 L 95.4 L Carbon Dioxide BUN 26 H 24 H Creatinine Glucose 168 H POC Glucose 159 H Lactic Acid Calcium 8.1 L Phosphorus Magnesium AST ALT Alkaline Phosphatase Lactate Dehydrogenase Troponin T 0.078 H C-Reactive Protein NT-Pro-B Natriuret Pep Total Protein Albumin LDL Cholesterol Direct Vitamin B12 Urine WBC (Auto) Fluid Glucose Fluid Total Protein Vancomycin Trough Crossmatch 01/16/22 01/17/22 01/17/22 23:22 05:20 14:24 WBC RBC Hgb Hct MCV MCH MCHC RDW Plt Count Eos % (Auto) Eos # (Auto) Seg Neuts % (Manual) Lymphocytes % (Manual) Seg Neutrophils # Seg Neutrophils # Man Lymphocytes # (Manual) Monocytes # (Manual) PT INR D-Dimer ABG pH ABG pO2 55.0 L ABG HCO3 29.5 H ABG O2 Saturation 87.8 L ABG Base Excess 4.5 H ABG Hemoglobin 9.3 L Oxyhemoglobin 86.1 L Sodium Potassium Chloride Carbon Dioxide BUN Creatinine Glucose POC Glucose 113 H 111 H Lactic Acid Calcium Phosphorus Magnesium AST ALT Alkaline Phosphatase Lactate Dehydrogenase Troponin T C-Reactive Protein NT-Pro-B Natriuret Pep Total Protein Albumin LDL Cholesterol Direct Vitamin B12 Urine WBC (Auto) Fluid Glucose Fluid Total Protein Vancomycin Trough Crossmatch 01/17/22 01/18/22 01/18/22 17:14 05:39 11:53 WBC RBC Hgb Hct MCV MCH MCHC RDW Plt Count Eos % (Auto) Eos # (Auto) Seg Neuts % (Manual) Lymphocytes % (Manual) Seg Neutrophils # Seg Neutrophils # Man Lymphocytes # (Manual) Monocytes # (Manual) PT INR D-Dimer ABG pH ABG pO2 ABG HCO3 ABG O2 Saturation ABG Base Excess ABG Hemoglobin Oxyhemoglobin Sodium Potassium Chloride Carbon Dioxide BUN Creatinine Glucose POC Glucose 126 H 108 H 113 H Lactic Acid Calcium Phosphorus Magnesium AST ALT Alkaline Phosphatase Lactate Dehydrogenase Troponin T C-Reactive Protein NT-Pro-B Natriuret Pep Total Protein Albumin LDL Cholesterol Direct Vitamin B12 Urine WBC (Auto) Fluid Glucose Fluid Total Protein Vancomycin Trough Crossmatch 01/18/22 01/19/22 01/19/22 12:50 00:04 04:50 WBC RBC 3.14 L Hgb 8.4 L Hct 26.0 L MCV MCH 27 L MCHC RDW 18.2 H Plt Count Eos % (Auto) Eos # (Auto) Seg Neuts % (Manual) Lymphocytes % (Manual) Seg Neutrophils # Seg Neutrophils # Man Lymphocytes # (Manual) Monocytes # (Manual) PT INR D-Dimer ABG pH ABG pO2 112.3 H ABG HCO3 30.9 H ABG O2 Saturation ABG Base Excess 5.8 H ABG Hemoglobin 8.8 L Oxyhemoglobin Sodium Potassium Chloride Carbon Dioxide BUN Creatinine Glucose POC Glucose 115 H Lactic Acid Calcium Phosphorus Magnesium AST ALT Alkaline Phosphatase Lactate Dehydrogenase Troponin T C-Reactive Protein NT-Pro-B Natriuret Pep Total Protein Albumin LDL Cholesterol Direct Vitamin B12 Urine WBC (Auto) Fluid Glucose Fluid Total Protein Vancomycin Trough Crossmatch 01/19/22 01/19/22 01/19/22 04:50 11:51 20:45 WBC RBC Hgb Hct MCV MCH MCHC RDW Plt Count Eos % (Auto) Eos # (Auto) Seg Neuts % (Manual) Lymphocytes % (Manual) Seg Neutrophils # Seg Neutrophils # Man Lymphocytes # (Manual) Monocytes # (Manual) PT INR D-Dimer ABG pH ABG pO2 95.2 H ABG HCO3 29.8 H ABG O2 Saturation ABG Base Excess 4.3 H ABG Hemoglobin 8.0 L Oxyhemoglobin Sodium 134 L Potassium Chloride 95.4 L Carbon Dioxide BUN 28 H Creatinine Glucose POC Glucose 111 H Lactic Acid Calcium Phosphorus Magnesium AST ALT Alkaline Phosphatase Lactate Dehydrogenase Troponin T C-Reactive Protein NT-Pro-B Natriuret Pep Total Protein Albumin LDL Cholesterol Direct Vitamin B12 Urine WBC (Auto) Fluid Glucose Fluid Total Protein Vancomycin Trough Crossmatch 01/20/22 01/21/22 01/22/22 11:43 23:32 11:12 WBC RBC Hgb Hct MCV MCH MCHC RDW Plt Count Eos % (Auto) Eos # (Auto) Seg Neuts % (Manual) Lymphocytes % (Manual) Seg Neutrophils # Seg Neutrophils # Man Lymphocytes # (Manual) Monocytes # (Manual) PT INR D-Dimer ABG pH ABG pO2 ABG HCO3 ABG O2 Saturation ABG Base Excess ABG Hemoglobin Oxyhemoglobin Sodium Potassium Chloride Carbon Dioxide BUN Creatinine Glucose POC Glucose 118 H 113 H 110 H Lactic Acid Calcium Phosphorus Magnesium AST ALT Alkaline Phosphatase Lactate Dehydrogenase Troponin T C-Reactive Protein NT-Pro-B Natriuret Pep Total Protein Albumin LDL Cholesterol Direct Vitamin B12 Urine WBC (Auto) Fluid Glucose Fluid Total Protein Vancomycin Trough Crossmatch 01/22/22 01/23/22 01/23/22 17:54 09:36 11:49 WBC RBC Hgb Hct MCV MCH MCHC RDW Plt Count Eos % (Auto) Eos # (Auto) Seg Neuts % (Manual) Lymphocytes % (Manual) Seg Neutrophils # Seg Neutrophils # Man Lymphocytes # (Manual) Monocytes # (Manual) PT INR D-Dimer ABG pH ABG pO2 ABG HCO3 ABG O2 Saturation ABG Base Excess ABG Hemoglobin Oxyhemoglobin Sodium Potassium Chloride Carbon Dioxide BUN Creatinine Glucose POC Glucose 115 H 194 H Lactic Acid Calcium Phosphorus Magnesium AST ALT Alkaline Phosphatase Lactate Dehydrogenase Troponin T C-Reactive Protein NT-Pro-B Natriuret Pep Total Protein Albumin LDL Cholesterol Direct Vitamin B12 Urine WBC (Auto) 16.0 H Fluid Glucose Fluid Total Protein Vancomycin Trough Crossmatch 01/23/22 01/24/22 01/24/22 11:50 05:37 11:56 WBC RBC Hgb Hct MCV MCH MCHC RDW Plt Count Eos % (Auto) Eos # (Auto) Seg Neuts % (Manual) Lymphocytes % (Manual) Seg Neutrophils # Seg Neutrophils # Man Lymphocytes # (Manual) Monocytes # (Manual) PT INR D-Dimer ABG pH 7.310 L ABG pO2 43.9 L ABG HCO3 28.0 H ABG O2 Saturation 70.8 L ABG Base Excess ABG Hemoglobin 9.3 L Oxyhemoglobin 69.2 L Sodium Potassium Chloride Carbon Dioxide BUN Creatinine Glucose POC Glucose 118 H 119 H Lactic Acid Calcium Phosphorus Magnesium AST ALT Alkaline Phosphatase Lactate Dehydrogenase Troponin T C-Reactive Protein NT-Pro-B Natriuret Pep Total Protein Albumin LDL Cholesterol Direct Vitamin B12 Urine WBC (Auto) Fluid Glucose Fluid Total Protein Vancomycin Trough Crossmatch 01/25/22 01/25/22 01/26/22 12:20 13:17 05:59 WBC RBC Hgb Hct MCV MCH MCHC RDW Plt Count Eos % (Auto) Eos # (Auto) Seg Neuts % (Manual) Lymphocytes % (Manual) Seg Neutrophils # Seg Neutrophils # Man Lymphocytes # (Manual) Monocytes # (Manual) PT INR D-Dimer ABG pH 7.488 H ABG pO2 58.9 L ABG HCO3 28.3 H ABG O2 Saturation 94.9 L ABG Base Excess 4.7 H ABG Hemoglobin 8.7 L Oxyhemoglobin 92.7 L Sodium Potassium Chloride Carbon Dioxide BUN Creatinine Glucose POC Glucose 126 H 130 H Lactic Acid Calcium Phosphorus Magnesium AST ALT Alkaline Phosphatase Lactate Dehydrogenase Troponin T C-Reactive Protein NT-Pro-B Natriuret Pep Total Protein Albumin LDL Cholesterol Direct Vitamin B12 Urine WBC (Auto) Fluid Glucose Fluid Total Protein Vancomycin Trough Crossmatch 01/26/22 01/26/22 10:16 10:16 WBC 12.7 H RBC Hgb 9.9 L Hct MCV MCH 27 L MCHC RDW 18.3 H Plt Count Eos % (Auto) 4.5 H Eos # (Auto) 0.6 H Seg Neuts % (Manual) Lymphocytes % (Manual) Seg Neutrophils # 8.2 H Seg Neutrophils # Man Lymphocytes # (Manual) Monocytes # (Manual) PT INR D-Dimer ABG pH ABG pO2 ABG HCO3 ABG O2 Saturation ABG Base Excess ABG Hemoglobin Oxyhemoglobin Sodium Potassium Chloride 96.6 L Carbon Dioxide BUN 29 H Creatinine Glucose 140 H POC Glucose Lactic Acid Calcium Phosphorus Magnesium AST ALT Alkaline Phosphatase Lactate Dehydrogenase Troponin T C-Reactive Protein NT-Pro-B Natriuret Pep Total Protein Albumin LDL Cholesterol Direct Vitamin B12 Urine WBC (Auto) Fluid Glucose Fluid Total Protein Vancomycin Trough Crossmatch Chest x-ray: image reviewed Allied health notes reviewed: nursing
[2022-01-26] MEDS: MELATONIN 5 MG TAB PO SCH (21:13)
[2022-01-26] MEDS: PRAVASTATIN 20 MG TAB FEEDTUBE SCH (21:13)
[2022-01-26] MEDS: traZODone 50 MG TAB PO SCH (21:13)
[2022-01-27] MEDS: SUCRALFATE 1 GM/10 ML ORAL LIQD FEEDTUBE SCH ×5 (00:44→23:26)
[2022-01-27] MEDS: LEVOTHYROXINE 125 MCG TAB FEEDTUBE SCH (06:49)
[2022-01-27] MEDS: HYDROcodone/ACETAMINOPHEN 10-325MG TAB FEEDTUBE SCH ×3 (09:00→20:12)
[2022-01-27] MEDS: MIDODRINE 5 MG TAB FEEDTUBE SCH ×3 (09:00→18:00)
[2022-01-27] MEDS: SPIRONOLACTONE 25 MG TAB FEEDTUBE SCH (09:43)
[2022-01-27] MEDS: busPIRone 5 MG TAB FEEDTUBE SCH ×2 (09:44→22:50)
[2022-01-27] MEDS: QUEtiapine 25 MG TAB FEEDTUBE SCH ×2 (09:44→22:50)
[2022-01-27] MEDS: FUROSEMIDE 20 MG TAB PO SCH (09:44)
[2022-01-27] MEDS: LANSOPRAZOLE 30 MG SOLUTAB FEEDTUBE SCH ×2 (09:44→22:51)
[2022-01-27] MEDS: POLYETHYLENE GLYCOL 3350 17 GM POWDER FEEDTUBE SCH (09:46)
[2022-01-27] MEDS: DOCUSATE SODIUM 100 MG/10 ML ORAL LIQD FEEDTUBE SCH ×2 (09:46→22:52)
[2022-01-27] MEDS: METOPROLOL TARTRATE 25 MG TAB FEEDTUBE SCH ×2 (09:46→22:51)
[2022-01-27] MEDS: SENNOSIDES ORAL LIQD 8.8 MG/5 ML ORAL LIQD FEEDTUBE SCH ×2 (09:47→22:52)
[2022-01-27] MEDS: GABAPENTIN 500 MG/10 ML ORAL LIQD FEEDTUBE SCH (09:49)
--- NOTE | 2022-01-27 10:25 | Progress Note ---
Assessment and Plan Assessment and plan: This is an 82-year-old female with DM, HTN , CHB s/p PPM, CAD s/p PCI and arthritis who presented to the emergency department on 11/04 for shortness of breath ongoing for the past 3 days, cough and according to family a fever of 102.2. Upon arrival of EMS patient was found to be tachypneic and hypoxic with SPO2 of 76% on room air which later improved to 88% on nonrebreather. Work-up in the emergency department included a CXR which showed bilateral interstitial pulmonary edema with bilateral pleural effusions and bibasilar opacities, leukocytosis and anemia with a hemoglobin of 6.1. Patient was admitted to the hospitalist service with acute anemia, acute hypoxic respiratory failure, bilateral pneumonia and COVID-19 PUI with consults to pulmonology, infectious disease and later cardiology. Patient was eventually intubated in the emergency department on 11/06. Hospital Course to date: 11/04/2021: Empiric therapy with iv levaquin/vancomycin. COVID PCR pending. Will consult ID. PCCM consulted, will follow recs. Hypotensive this AM, ordered bolus and fluids at 150 cc/hr. May require pressor support if bp does not improve. 11/05/2021: GBS on bcx +, currently on rocephin IV. Currently on bipap due to respiratory distress overnight. Worsening BL opacities on CXR. May be volume overload vs pneumonia. Unfortunately bp too low for lasix at this point. WIll continue levophed and bipap. Once able to tolerate, may do trial of albumin/lasix. Call attempt made to Niraj, no response. Will try again tomorrow to update. 11/06/2021: Decompensated overnight requiring intubation. CXR shows worsening interstitial infiltrates. Currenlty on dopamine, levophed, vasopressin. PICC line ordered. Advised RN to place gmable for I/O monitoring. Would benefit from diuresis but very volume overloaded. Prognosis guarded 11/08: Off sedation this am, remains unresponsive only grimace to pain. Hold all sedatives agents for now, patient is off pressors this am. Hypernatremia from today's lab- D5W X1bag, and low K repleted, repeat lab in the am. Severe constipation also noted from KUB, BR added. 11/09: Sudden SPO2 drop in the 60s this am. Patient was manually bagged and deep suctioned. Patient is currently stable on the vent, repeat CXR with no significant change. D/w CCM Mucomyst and brochodilator added. Patient mentation is unchanged, continue to hold off on sedative agents. Neurology consulted. 11/10: Acute DVT noted on bilateral lower extremity Doppler ultrasound therefore she was started on Lovenox treatment dose. Failed SBT. Hypernatremia and hyperchloremia noted, free water flush adjusted. 11/11: Patient noted to be febrile with increasing of the cytosis, UA/BC sent and CXR ordered. ID escalated antibiotics to cefepime. CXR demonstrated mucous plug, bedside bronchoscopy was performed and O ETT was changed over bougie from 6 cm to 7.5. Patient was noted to have a pneumothorax postprocedure and chest tube was placed. Family updated by [facility]. Free water flush increased and will add Jaswant supplementation. 11/12: Patient not noted to follow commands, hypernatremia worsen/persist, increasing free water flush, potassium and magnesium and phosphorus repleted. Hemoglobin noted to be 7./24.5 from 7.03/12 yesterday. We will continue to trend and monitor. Vent changes per [facility]. Repeat CXR showed no residual pneumothorax. Consider waterseal tomorrow. Given persistent leukocytosis antibiotics escalated to cefepime per ID. 11/13: Remains on cefepime and vancomycin, vent changes per [facility]. Anemia noted and given 1 unit PRBC. And beta-charleen held in setting of Levophed drip infusing. Remains on fentanyl drip. 11/14: Patient put on CPAP trial by [facility], will continue chest tube until after extubation. Will rest on assist control. CT brain was cancelled by radiologist diagnostic and reordered. 11/15: Patient removed chest tube overnight. Will obtain cxr. remains on low dose levo. CTH completed with no acute findings. RT to place on CPAP. 11/16: Hypernatremia/hyperchloremia noted on the increase of day water flushes. Anemia noted and ordered PRBC. asked RT to place on cpap but not done yet 11/17: Patient remains on the vent, awake and following commands. H&H stable s/p 2units PRBCs. GI on consult, no intervention at this time. Will continue protonix gtt and serial H&H Q6hrs. Keep patient NPO for now, D5w added for hypernatremia and NPO status. Plan for IVC filter placement today by Vascular. 11/18: Patient is s/p IVC filter. H&H continue to trend down, hbg 6.1 this am, 1 unit of PRBCs ordered. Plan for possible EGD today by GI. Keep patient NPO, continue PPI drip and serial H&H Q6hrs. Electrolytes repleted, repeat lab in the am 11/19: S/p EGD- larger duodenal ulcer noted, see operative note. GI recommendations noted also noted. H&H stable this am. Keep patient on protonix gtt for now. Will keep patient NPO, continue IVF and serial H&H for now. Electrolytes repleted, repeat labs in the am 11/20: Very agitated and restless this am, fentanyl gtt resumed. Patient remains on protonix gtt, H&H remains stable. Will switch protonix gtt to IV BID, continue carafate and okay to resume meds at this time. Will F/u with GI to see if TF can be resumed. Gamble was reinserted overnight for retention. Electrolytes repleted, repeat in the am. Plan for possible PST today for possible extubation per CCM. 11/21: Patient is now on seroquel and patient's home buspar resumed. Patient more calm this morning, fentanyl gtt is off. H&H remains stable and patient is tolerating TF. Patient had a runs of Vtach/PVCs this am, BB added per Cardio. Continue daily PS and wean trial for possible extubation. 11/22: Back on fentanyl gtt overnight , RASS o to -1, following commands. Patient failed PST this am due to increased work of breathing and low SPO2, ABG pending. Patient is also with worsen pitting edema, lasix is still on hold. Will discuss with cardio and CCM to possibly resume lasix. 11/23: MARIA DEL CARMEN overnight. Patient failed PST again this am. Per CCM plan for possible trach and PEG, hold off on IV lasix for now. General surgery consulted and family is aware of possible Trach and PEG. 11/24: Trach/PEG pending this week, continue SBT/SAT as tolerated. No acute events reported overnight. 11/25: Patient was n.p.o. overnight and will remain n.p.o. tonight for trach/PEG tomorrow morning. She failed to support trial again. KUB obtained due to distended belly. 11/26: Patient scheduled for tracheostomy and PEG tube placement today, has been n.p.o. since midnight. No acute events reported overnight. [facility] ordered simethicone scheduled. 11/27: No acute events reported overnight, patient received trach/PEG yesterday. Has been on feedings since last night. Still awaiting LTAC placement. 11/28: Patient magnesium repleted, repeat a.m. labs, SBT 11/29: Patient complains of chest pain but ECG obtained which showed no acute findings, ordered troponin. Patient failed CPAP yesterday and was trialed again today. levophed was restarted but will aggressively wean 11/30: Patient failed SBT. Continue supportive care. Started gabapentin today 12/01: MARIA DEL CARMEN overnight. Continue daily PST. Case management to arrange possible placement 12/02: Report of dark stools overnight, patient is hemodynamically stable. H&H stable, patient is on PPI. Will continue to trend H&H. Continue daily PST as tolerated. Awaiting LTAC vs SNF placement. 12/03: Hypotensive overnight, requiring low dose pressors. S/p X3 days of gentle diurese. Will continue to monitor, wean off pressors as tolerated for MAP of 65. Patient Failed PST yesterday, case management to follow up with insurance for po ssible LTAC placement. Continue daily PST as tolerated. PT eval and treat ordered. 12/04: Increased agitation and anxiety overnight, remains on buspar and seroquel, trazadone added to promote rest. Patient is now working with PT, keep patient engage and awake during the day so she can rest at night. No BM for over 5 days, BR was adjusted. Patient did not tolerate PST again yesterday, continue daily PST as tolerated. Continue to titrate pressor for MAP above 65. Pending possible LTAC placement, case management to arrange. 12/05: Still not getting much rest overnight, will add melatonin for sleep. Continue to engage patient during the day and promote rest at night. TF was held due to concern for possible bleeding, H&H remains stable and stools normal this am. Resume TF and continue PPI and carafate. Remains on low dose levophed, titrate as tolerated. Continue daily PST. Possible LTAC placement, awaiting approval. 12/06: MARIA DEL CARMEN overnight. Patient rested overnight. Continue supportive measures. Daily PST as tolerated. Awaiting possible LTAC placement 12/07: MARIA DEL CARMEN overnight. Plan for Tpiece trial today. Continue current supportive measures. Possible LTAC placement 12/08: Patient placed on pressure support trial again today, started on Xanax, no acute events reported overnight. Awaiting insurance approval for LTAC. 12/09: Levophed discontinued, LTAC transfer denied, started on midodrine and Lasix, ultrasound chest pending, started on Xanax 0.[address] De León updated family at bedside today. Started on Dilaudid every 3 hours as needed. 12/10: Patient placed on CPAP trial this morning, no acute events reported overnight. Will order ultrasound-guided thoracentesis. 12/11: Patient had a thoracentesis today, will decrease Xanax dosage and continue midodrine and diuresing. Patient failed CPAP today. 12/12: Patient not tolerate CPAP trials today, no acute events reported overnight 12/13: No acute events overnight. continue PSV trials as tolerated. Daughter up dated at bedside 12/14: Patient noted to be anemic today, ordered gastric occult. Patient seems to be oversedated therefore Xanax changed to as needed and fentanyl patch discontinued. We will continue to monitor hyponatremia. 12/15: MARIA DEL CARMEN overnight. s/p 1unit of PRBCs, H&H stable this am, no signs of any active bleeding. Continue daily PST as tolerated. Awaiting placement. 12/16: Hypertensive this am, Midodrine decreased. Continue daily PST. MARIA DEL CARMEN overnight 12/17: Patient Hgb dropped to 6 this am, no s/s of any active bleeding, VSS. Patient received 1unit of PRBC, will continue to trend H&H. Patient was pancultured and back on IV Abx due to persistent fevers yesterday. ID is also back on the case. Continue IV Abx per ID and f/u on cultures data for sensitivity. Patient also failed PST yesterday, continue daily PST as tolerated. Electrolytes repleted, repeat labs in the am. 12/18: Patient blood cultures is growing GPC 4 out 4 bottles. PICC line D/Rivas, patient is already on IV Abx-cefepine and Vanc and ID is following. Patient remains hemodynamically stable. Daily PST as tolerated adn PRN Benzo for anxiety. 12/19: MARIA DEL CARMEN overnight. Culture data noted, continue IV Abx per ID. Orders placed for repeat Bculture. Gamble D/C overnight, patient is voiding. Check bladder scan as needed for retention. Patient failed PST again today. Continue daily PST as tolerated. 12/20: Fevers improved, Cultures +MRSA, on Vanco per ID. Repeat 2D Echo to r/o endocarditis. Patient continue to fail PST, PEEP increased to 8 today. Continue pulmonary hygiene and vent wean per CCM. Sodium tab added for hyponatremia. 12/22: Patient on pressure support trial for approximately 4 hours today, midodrine dosage increased due to hypotension. Lasix discontinued. 12/23: Started on a.m. Seroquel dose, midodrine increased to 10 mg 3 times daily, 500 mL normal saline bolus. 12/24: Seroquel dose changed (25 every morning, 75 nightly). updated at bedside by Dr. De León. CPAP trials as tolerated. Continue vancomycin. Awaiting placement. 12/25: Continue CPAP as tolerated, added gasx for distention. Continue supportive care 12/26: Patient failed PSV this AM. no acute events overnight. 12/27: GI re-consulted due to abdominal distention. No acute events reported overnight. CPAP trials as tolerated. Dr. Mckenna will get a KUB to rule out possible obstruction. 12/28: KUB shows no acute process, CXR shows improvement. CPAP trials as tolerated. 12/29: CT Abd/pelvis noted with moderated bilateral pleural effusion, anasarca, and ascites. X1dose of IV lasix administered. D/w CCM and GI orders plan for thora and paracentesis by IR. Will also start patient on aldactone Qday. Patient is tolerating trickle feeds this am, continue TF and BR adjusted for constipation. Plan of care was discussed with patient and her at the bedside. Thorough discussion on patient's overall poor prognosis and that pat ient will most likely be vent dependent. Patient's voiced understanding of the info given. All questions and concerns were voiced at this time. 12/30: Patient did not tolerate thoracentesis in IR yesterday due to change in LOC and hypoxia. Plan for possible bedside thoracentesis and paracentesis today. Patient remains afebrile. Patient required extermination supervisor IV abx therapy [id number] left, orders placed for a PICC. Patient remains with sign. Piting edema and anasarca, X1 does of PO Zaroxolyn and 2m of IV lasix given. Electrolytes repleted, repeat lab in the am. 12/31: Tolerated Rt. thoracentesis at the bedside yesterday, 1.4L removed. Patient remains stable on the vent this am, tolerating CPAP today PS dropped to 14. Recent CXR noted, left pleural effusion improved. Patient tolerated gentle diurese yesterday, good urine output reported. D/w CCM hold off on Left thoracentesis today, continue PO Aldactone and additonal zaroxolyn and IV lasix again today. F/u CXR in the am. 01/01: This am CXR noted with worsening bilateral pleural effusion. Patient is stable and tolerating PST this am, however PS is back up to 20 this am. BP is soft this am will hold off on IV diuretic for today, continue PO Aldactone. D/w CCM continue gentle diurese as tolerated. Will reassess in the am. Continue support care. 01/02: MARIA DEL CARMEN overnight. VSS this am, tolerating PST. X1dose of 25% IV Albumin following with 20mg IV Lasix today. Continue daily gentle diurese if hemodynamics tolerate it. Continue to monitor and replace electrolytes as needed 01/03: Abdominal distention and vomiting overnight, 600cc of gastric residual removed, TF held. KUB with no acute abnormality. Reglan added X2days, resume TF, and continue BR. Patient is tolerating PST this am. Hemodynamics remains stable, will continue gentle IV diurese. close monitoring to renal function and electrolytes. 01/04: Tolerating TF, nausea/vomiting resolved, last BM on 01/03. Continue Reglan X1 more day. Patient continue to tolerate PST. D/W CCM continue gentle diurese. F/U CXR in the am. Possible US thoracentesis tomorrow. 01/05: no acute events overnight. scheduled for thoracentesis today but procedure pushed to tomorrow. TF restarted and will be NPO post MN. 01/06: planned thoracentesis today. Working with CM for ltac/snf approval. 01/07: s/p thoracentesis 120 cc appears to have been removed. Pulm recommendations noted, agree with continued diuresis and weaning. Continued planning with CM for ltac/snf placement. 01/08: No new issues. Continue vent weaning per pulmonary. Continuing to work with CM for placement. 01/09: No new issues. Continue vent weaning per pulmonary. Continuing to work with CM for placement. Ordered BMP for tomorrow to check kidney function as patient is currently being diuresed. 01/10: No new issues. Continue vent weaning/diuresis as directed by pulmonary medicine.BMP demonstrates normal renal function and potassium. Sodium and Chloride consistent with prior labs. Will recheck BMP in 2 days. Placement continues to be an issue as patient has been denied at all facilities. Will reasses with CM on wednesday. 01/11: Emesis overnight. Do not suspect that she is obstructed as she had 2 BM reported. Will order Reglan prn, drop TF rate to goal of 30 cc/hr. Will continue to work on placement. 01/12: Per RN patient had reported that she was tired and did not want to persist in her current state of health. D/w patient Niraj at patient bedside and stated that I recommended the patient/family at least talk with hospice to get a better understanding of their care. He was agreeable. I spoke with Ms. Busby who will help set up referral for hospice service so that family can be educated and, if the patient chooses, can pursue this option. 01/13: Continue supportive care. Family discussing about hospice. Continue reinforcement and continue weaning as tolerated. Prognosis is guarded and poor. Patient is clinically stable to transfer to the next level of care has not required any escalation in management. Has been stable on the vent awake alert following commands. 01/14: [id number]. Considering abdominal distention tube feedings hold along with the fact that the patient vomited yesterday. Will obtain a CT abdomen and pelvis to further evaluate placement. Discussed with nursing staff. Awaiting to have a family conversation with the for goals of care discussion again. 01/15: Continue supportive care, tube feed was restarted yesterday and tolerated, will start on simethicone for gas control and management. Patient is clinically stable for all lower level of care and continued weaning from the ventilator to appropriate facility. Family still undecided about goals of care. We will also check labs intermittently. 01/16: Patient today went for Chest tube placement on the right side for recurrent pleural effusion, with the goal of evaluating to see if we can wean off the vent. She has remained on the vent and with some persistent anxiety. she continues to tolerate tube feed. Again poor prognosis discussed with family. 01/17: Status post chest tube, with output of approximately 1880 cc since placement. Will continue to work with pulmonology for vent weaning. 01/18: Only tolerated 1 hr of t piece trial yesterday per RT. Patient PaO2 50s on abg last night. Will continue to work with pulmonary medicine for vent weaning. abg, cbc, bmp, xr chest ordered for am. 01/19: On t piece trial this AM. labs reviewed. CXR reviewed and appears stable with no new changes. AB.42/47.8/112.3/30.9. Will follow pulmonary recommendations and plan to continue to wean off of vent. 01/20: Per CM, [facility] declined patient admission as there are T stated the patient was not amenable from the vent. Yesterday patient had tolerated T-piece trial for approximately 12 hours. Today patient only tolerated for 45 minutes. Had desatted and stated that she was in pain during today's trial. Output yesterday from chest tube 1000 cc. Today it is 100 cc thus far. Will obtain chest x-ray tomorrow. 01/21: XR chest demonstrate mild improvement in pulmonary edema. Chest tube OP: 400 cc on 01/20 and 450 cc thus far today. On CPAP trial this am. Hopefully patient can eventually be weaned off of vent. Placement continues to be a challenge as patient has been denied at all facilities thus far, working with CM who has been in frequent contact with [facility]. 01/22: Yesterday the patient had lasted approximately 10 hours on T-piece trial. Output from chest tube approximately 525 cc yesterday. Thus far today patient has had 400 cc. Will follow with pulmonology regarding overall plan for chest tube and weaning patient off ventilator. 01/23: chest tube output 838 cc. Follow pulmonology plan re: chest tube and vent weaning. Placement remains challenging. 01/24: Very fatigue on t - piece trial yesterday afternoon, placed on full MV support. Will re-attempt today poss. Patient will complete Vancomycin course for MRSA tx on Friday 01/26. She has been afebrile sine 01/02. Current barriers to placement are weaning patient off of ventilator and removing chest tube as thus far all facilities have declined the patient. 01/25: AM CXR shows worsening pulmonary edema. On t-piece trial this AM. Patient still continues to have output from chest tube. Will follow pulmonary recs today. 01/26: Difficulty breathing this AM. Chest tube OP approx 1L yesterday. Ordered Albumin due to hypotension noted this AM. Lasix 20 mg IV in addition to po lasix ordered for pulmonary edema. Labs ordered. 01/27: Antibiotics completed for MRSA bacteremia yesterday. Will start po bactrim for suppression per ID recommendation. Remains on MV support this AM. Blood pressure improved..actually hypertensive. Chest tube OP 50 cc yesterday. Metabolic profile noted, BUN slightly elevated but Cr in range. Can continue with lasix diuresis. Will likely need pleurx fdc at some point in place of the chest tube. watermaster prognosis remains guarded to poor. Assessment and Plan Neuro : Anxiety, chronic pain -Neurology consulted, appreciate recommendations -CT brain showed no acute events -EEG interpreted as abnormal record due to diffuse slowing noted throughout the recording, suggestive of encephalopathic process and/or drug effect, possibilit ies of postictal state cannot be totally excluded. Clinical correlation is in order -MRI brain not obtained-> patient has metal in her body -Repeat CT head with no acute findings -Reorientation as needed -Ammonia 42, B12 1823, TSH 1.5 -BuSpar, Seroquel, [place], gabapentin -prn xanax and Dilaudid Cardio: Acute Heart failure with reduced EF, h/o chronic heart block s/p PPM, HTN, CAD s/p PCI (2004), Moderate pulmonary HTN, cardiomyopathy -s/p vasopressor support with levophed -11/04 echocardiogram shows EF 30 to 35%, Moderate pulmonary HTN RVSP 49 -3/4 echo with 35-40% EF -Cardiology consulted, appreciate recommendations -Continue beta-charleen and statin therapy -Midodrine (titrate as needed) -Not on aspirin due to allergy -Blood pressure monitoring per protocol -As needed nitroglycerin Resp: Acute hypoxic respiratory failure secondary to bilateral pneumonia, recurrent bilateral pleural effusion s/p rt sided chest tube. Right pneumothorax (resolved). -COVID-19 PCR negative -Intubated on 11/06 with 6.00 ETT at 18 at the lip and changed over bougie on 11/11-7.50 ETT at 20 at the lip -See RT notes for titration -PSV as tolerated -Surgery consult for trach -Received trach/PEG on 11/26 -S/p bedside bronchoscopy on 11/11 complicated by pneumothorax -S/p chest tube placement for right pneumothorax and dislodgment by patient on 11/15 -ABG/CXR per CCM -VAP bundle -Right chest wall ultrasound showed pleural effusion s/p chest tube -12/11 US thoracentesis removed 1L fluid -12/29 US thoracentesis removed 1.4L fluid -01/06 thoracentesis planned -01/16 right-sided chest tube placed by IR -SPO2 monitoring GI: S/p GI bleed, duodenal ulcer, transaminitis -GI consulted, appreciate recommendations-signed off -Nutrition consult for tube feeding, currently on nepro TF 45 cc/hr, dropped to 30 cc/hr due to concerns for emesis. -BR: Senokot -s/p peg 11/26 -H2 charleen -Carafate -24-hour +428 ml -10/2021 Gastric occult positive -> EGD-> duodenal ulcer -12/14 occult stool positive - reglan prn. : Urinary retention (resolved), hyponatremia, hypochloremia -Strict intake and output -Trend BMP ID: Septic shock (POA-resolved), bilateral pneumonia, MRSA bacteremia/pna -Infectious disease consulted, appreciate recommendations -COVID-19 PCR negative -Presented with fevers, leukocytosis and hypotension -11/04 blood cultures positive with a group B strep bacteremia 12/19 however repeat blood cultures on the with no growth to date -Echo showed no evidence of vegetation -repeat echo showed EF 35-40 % with no vegetations -ABX therapy: IV vancomycin for 4 weeks (12/16-01/26) -Monitor WBC and fever curve -Bedside bronchoscopy for mucous plug on CXR 11/11 -f/u blood cultures Heme: Acute DVT in the right external iliac vein, common femoral vein, superior aspect of femoral vein, Acute microcytic anemia -Evidenced on bilateral upper lower extremity ultrasound -S/p 7 unit PRBC -Trend CBC -Transfuse for hemoglobin less than 7 -heparin gtt dc d/t anemia -S/p IVC filter Endo: h/o DM and hypothyroidism -Continue home Synthroid -SSI -Accu-Cheks every 6 -Avoid hypoglycemia The high probability of a clinically significant, sudden or life threatening deterioration of the [multi] system(s) required my full and direct attention, intervention and personal management. The aggregate critical care time was [60] minutes. This time is in addition to time spent performing reported procedures but includes the following: [x] Data Review and interpretation [x] Patient assessment and monitoring of vital signs [x] Documentation [x] Medication orders and management History Interval history: I saw and examined the patient at bedside. on full MV support. Hospitalist Physical - Physical exam Narrative exam: Physical Exam: VITAL SIGNS: Reviewed. GENERAL: The patient appears normally developed, Vital signs as documented. Frail appearing elderly woman. HEAD: No signs of head trauma. EYES: Pupils are equal. Extraocular motions intact. EARS: Hearing grossly intact. MOUTH: Oropharynx is normal. NECK: No adenopathy, no JVD. trach collar overlying tracheostomy tube in place. CHEST: Bl rhonchi. rt sided chest tube in place. CARDIAC: Regular rate and rhythm. S1 and S2, without murmurs, gallops, or rubs. VASCULAR: No Edema. Peripheral pulses normal and equal in all extremities. ABDOMEN: Soft, non tender and non distended. No rebound or guarding, and no masses palpated. Bowel Sounds normal. peg tube in place MUSCULOSKELETAL: Good range of motion of all major joints. Extremities without clubbing, cyanosis or edema. NEUROLOGIC EXAM: Alert and oriented x 4. no focal sensory or strength deficits. PSYCHIATRIC: anxious appearing SKIN: detail exam as documented in skin assessment - Constitutional Vitals: Temp Pulse Resp BP Pulse Ox 98.4 F 69 12 132/59 99 01/27/22 03:16 01/27/22 09:43 01/27/22 07:00 01/27/22 09:43 01/27/22 08:24 General appearance: Present: no acute distress HEART Score - HEART Score Troponin: Troponin T 0.078 ng/mL (0.00-0.029) H 01/15/22 Unknown Results - Labs CBC & Chem 7: 01/26/22 10:16 01/26/22 10:16 Labs: Laboratory Last Values WBC 12.7 K/mm3 (4.5-11.0) H 01/26/22 10:16 RBC 3.74 M/mm3 (3.65-5.03) 01/26/22 10:16 Hgb 9.9 gm/dl (10.1-14.3) L 01/26/22 10:16 Hct 31.1 % (30.3-42.9) 01/26/22 10:16 MCV 83 fl (79-97) 01/26/22 10:16 MCH 27 pg (28-32) L 01/26/22 10:16 MCHC 32 % (30-34) 01/26/22 10:16 RDW 18.3 % (13.2-15.2) H 01/26/22 10:16 Plt Count 269 K/mm3 (140-440) 01/26/22 10:16 Lymph % (Auto) 25.6 % (13.4-35.0) 01/26/22 10:16 Cowley % (Auto) 4.5 % (0.0-7.3) 01/26/22 10:16 Eos % (Auto) 4.5 % (0.0-4.3) H 01/26/22 10:16 Baso % (Auto) 0.7 % (0.0-1.8) 01/26/22 10:16 Lymph # (Auto) 3.2 K/mm3 (1.2-5.4) 01/26/22 10:16 Cowley # (Auto) 0.6 K/mm3 (0.0-0.8) 01/26/22 10:16 Eos # (Auto) 0.6 K/mm3 (0.0-0.4) H 01/26/22 10:16 Baso # (Auto) 0.1 K/mm3 (0.0-0.1) 01/26/22 10:16 Add Manual Diff Complete 01/19/22 04:50 Total Counted 100 01/15/22 14:36 Seg Neutrophils % 64.7 % (40.0-70.0) 01/26/22 10:16 Seg Neuts % (Manual) 82.0 % (40.0-70.0) H 01/15/22 14:36 Band Neutrophils % 0 % 01/15/22 14:36 Lymphocytes % (Manual) 11.0 % (13.4-35.0) L 01/15/22 14:36 Reactive Lymphs % (Man) 0 % 01/15/22 14:36 Monocytes % (Manual) 5.0 % (0.0-7.3) 01/15/22 14:36 Eosinophils % (Manual) 1.0 % (0.0-4.3) 01/15/22 14:36 Basophils % (Manual) 1.0 % (0.0-1.8) 01/15/22 14:36 Metamyelocytes % 0 % 01/15/22 14:36 Myelocytes % 0 % 01/15/22 14:36 Promyelocytes % 0 % 01/15/22 14:36 Blast Cells % 0 % 01/15/22 14:36 Nucleated RBC % Not Reportable 01/15/22 14:36 Seg Neutrophils # 8.2 K/mm3 (1.8-7.7) H 01/26/22 10:16 Seg Neutrophils # Man 8.8 K/mm3 (1.8-7.7) H 01/15/22 14:36 Band Neutrophils # 0.0 K/mm3 01/15/22 14:36 Lymphocytes # (Manual) 1.2 K/mm3 (1.2-5.4) 01/15/22 14:36 Abs React Lymphs (Man) 0.0 K/mm3 01/15/22 14:36 Monocytes # (Manual) 0.5 K/mm3 (0.0-0.8) 01/15/22 14:36 Eosinophils # (Manual) 0.1 K/mm3 (0.0-0.4) 01/15/22 14:36 Basophils # (Manual) 0.1 K/mm3 (0.0-0.1) 01/15/22 14:36 Metamyelocytes # 0.0 K/mm3 01/15/22 14:36 Myelocytes # 0.0 K/mm3 01/15/22 14:36 Promyelocytes # 0.0 K/mm3 01/15/22 14:36 Blast Cells # 0.0 K/mm3 01/15/22 14:36 WBC Morphology Not Reportable 01/15/22 14:36 Hypersegmented Neuts Not Reportable 01/15/22 14:36 Hyposegmented Neuts Not Reportable 01/15/22 14:36 Hypogranular Neuts Not Reportable 01/15/22 14:36 Smudge Cells Not Reportable 01/15/22 14:36 Toxic Granulation Not Reportable 01/15/22 14:36 Toxic Vacuolation Not Reportable 01/15/22 14:36 Dohle Bodies Not Reportable 01/15/22 14:36 Pelger-Huet Anomaly Not Reportable 01/15/22 14:36 Irina Rods Not Reportable 01/15/22 14:36 Platelet Estimate Consistent w auto 01/15/22 14:36 Clumped Platelets Not Reportable 01/15/22 14:36 Plt Clumps, EDTA Not Reportable 01/15/22 14:36 Large Platelets Not Reportable 01/15/22 14:36 Giant Platelets Not Reportable 01/15/22 14:36 Platelet Satelliting Not Reportable 01/15/22 14:36 Plt Morphology Comment Not Reportable 01/15/22 14:36 RBC Morphology Not Reportable 01/15/22 14:36 Dimorphic RBCs Not Reportable 01/15/22 14:36 Polychromasia Not Reportable 01/15/22 14:36 Hypochromasia Not Reportable 01/15/22 14:36 Poikilocytosis Not Reportable 01/15/22 14:36 Anisocytosis 1+ 01/15/22 14:36 Microcytosis Not Reportable 01/15/22 14:36 Macrocytosis Not Reportable 01/15/22 14:36 Spherocytes Not Reportable 01/15/22 14:36 Pappenheimer Bodies Not Reportable 01/15/22 14:36 Sickle Cells Not Reportable 01/15/22 14:36 Target Cells Not Reportable 01/15/22 14:36 Tear Drop Cells Not Reportable 01/15/22 14:36 Ovalocytes Not Reportable 01/15/22 14:36 Helmet Cells Not Reportable 01/15/22 14:36 Odonnell-Jim Thorpe Bodies Not Reportable 01/15/22 14:36 Bardwell Rings Not Reportable 01/15/22 14:36 Malcom Cells Not Reportable 01/15/22 14:36 Bite Cells Not Reportable 01/15/22 14:36 Crenated Cell Not Reportable 01/15/22 14:36 Elliptocytes Not Reportable 01/15/22 14:36 Acanthocytes (Spur) Not Reportable 01/15/22 14:36 Rouleaux Not Reportable 01/15/22 14:36 Hemoglobin C Crystals Not Reportable 01/15/22 14:36 Schistocytes Not Reportable 01/15/22 14:36 Malaria parasites Not Reportable 01/15/22 14:36 Godfrey Bodies Not Reportable 01/15/22 14:36 Hem Pathologist Commnt No 01/15/22 14:36 PT 16.9 Sec. (12.2-14.9) H 01/06/22 04:06 INR 1.23 (0.87-1.13) H 01/06/22 04:06 APTT 29.2 Sec. (24.2-36.6) 11/26/21 05:00 D-Dimer 2655.00 ng/mlDDU (0-234) H 11/11/21 04:28 ABG pH 7.488 pH Units (7.350-7.450) H 01/25/22 12:20 ABG pCO2 38.2 mm Hg 01/25/22 12:20 ABG pO2 58.9 mm Hg (80.0-90.0) L 01/25/22 12:20 ABG HCO3 28.3 mmol/L (20.0-26.0) H 01/25/22 12:20 ABG O2 Saturation 94.9 % (95.0-99.0) L 01/25/22 12:20 ABG O2 Content 11.4 (0.0-44) 01/25/22 12:20 ABG Base Excess 4.7 mmol/L (-2.0-3.0) H 01/25/22 12:20 ABG Hemoglobin 8.7 gm/dl (12.0-16.0) L 01/25/22 12:20 ABG Carboxyhemoglobin 1.8 % (0.0-5.0) 01/25/22 12:20 ABG Methemoglobin 0.5 % (0.0-1.5) 01/25/22 12:20 Oxyhemoglobin 92.7 % (95.0-99.0) L 01/25/22 12:20 FiO2 35 % 01/25/22 12:20 Sodium 138 mmol/L (137-145) 01/26/22 10:16 Potassium 3.6 mmol/L (3.6-5.0) 01/26/22 10:16 Chloride 96.6 mmol/L (98-107) L 01/26/22 10:16 Carbon Dioxide 29 mmol/L (22-30) 01/26/22 10:16 Anion Gap 16 mmol/L 01/26/22 10:16 BUN 29 mg/dL (7-17) H 01/26/22 10:16 Creatinine 0.6 mg/dL (0.6-1.2) 01/26/22 10:16 Estimated GFR > 60 ml/min 01/26/22 10:16 BUN/Creatinine Ratio 48 % 01/26/22 10:16 Glucose 140 mg/dL (65-100) H 01/26/22 10:16 POC Glucose 81 mg/dL (70-105) 01/27/22 05:28 Lactic Acid 3.70 mmol/L (0.7-2.0) H* 11/03/21 22:32 Calcium 9.5 mg/dL (8.4-10.2) 01/26/22 10:16 Phosphorus 4.00 mg/dL (2.5-4.5) 01/26/22 10:16 Magnesium 1.70 mg/dL (1.7-2.3) 01/26/22 10:16 Ferritin 52.6 ng/mL (10.0-200.0) 11/05/21 06:11 Total Bilirubin 0.50 mg/dL (0.1-1.2) 11/17/21 05:56 Direct Bilirubin < 0.2 mg/dL (0-0.2) 11/11/21 04:28 Indirect Bilirubin 0.1 mg/dL 11/11/21 04:28 AST 36 units/L (5-40) 11/17/21 05:56 ALT 47 units/L (7-56) 11/17/21 05:56 Alkaline Phosphatase 107 units/L (35-129) 11/17/21 05:56 Ammonia 42.0 umol/L (25-60) 11/10/21 14:08 Lactate Dehydrogenase 187 units/L (91-180) H 11/05/21 06:11 Troponin T 0.078 ng/mL (0.00-0.029) H 01/15/22 Unknown C-Reactive Protein 22.20 mg/dL (0.00-1.30) H 11/05/21 06:11 NT-Pro-B Natriuret Pep 7895 pg/mL (0-900) H 11/03/21 22:32 Total Protein 5.1 g/dL (6.3-8.2) L 11/17/21 05:56 Albumin 2.2 g/dL (3.9-5) L 11/17/21 05:56 Albumin/Globulin Ratio 0.8 % 11/17/21 05:56 Triglycerides 72 mg/dL (2-149) 01/15/22 21:07 Cholesterol 103 mg/dL (50-199) 01/15/22 21:07 LDL Cholesterol Direct 44 mg/dL (50-130) L 01/15/22 21:07 HDL Cholesterol 46 mg/dL (40-59) 01/15/22 21:07 Cholesterol/HDL Ratio 2.23 % 01/15/22 21:07 Vitamin B12 1823 pg/mL (211-911) H 11/10/21 14:08 TSH 1.510 mlU/mL (0.270-4.200) 11/10/21 14:08 Urine Color Shamika (Yellow) 01/23/22 09:36 Urine Turbidity Turbid (Clear) 01/23/22 09:36 Urine pH 7.0 (5.0-7.0) 01/23/22 09:36 Ur Specific [place] 1.011 (1.003-1.030) 01/23/22 09:36 Urine Protein <15 mg/dl mg/dL (Negative) 01/23/22 09:36 Urine Glucose (UA) Neg mg/dL (Negative) 01/23/22 09:36 Urine Ketones Neg mg/dL (Negative) 01/23/22 09:36 Urine Blood Sm (Negative) 01/23/22 09:36 Urine Nitrite Neg (Negative) 01/23/22 09:36 Urine Bilirubin Neg (Negative) 01/23/22 09:36 Urine Urobilinogen 2.0 mg/dL (<2.0) 01/23/22 09:36 Ur Leukocyte Esterase Lg (Negative) 01/23/22 09:36 Urine WBC (Auto) 16.0 /HPF (0.0-6.0) H 01/23/22 09:36 Urine RBC (Auto) 32.0 /HPF (0.0-6.0) 01/23/22 09:36 U Epithel Cells (Auto) 1.0 /HPF (0-13.0) 01/23/22 09:36 Urine Bacteria (Auto) 4+ /HPF (Negative) 01/23/22 09:36 Urine Mucus Few /HPF 01/23/22 09:36 Urine Yeast (Budding) 3+ /HPF 01/23/22 09:36 Urine Sperm Few /HPF (JOY OPERATOR HELPER) 01/23/22 09:36 Fluid Type Pleural 01/06/22 13:40 Fluid Color Yellow 01/06/22 13:40 Fluid Appearance Hazy 01/06/22 13:40 Fluid WBC 273 /mm3 01/06/22 13:40 Fluid RBC 45 /mm3 01/06/22 13:40 Fluid Seg Neutrophils 47.0 % 01/06/22 13:40 Fluid Lymphocytes 22.0 % 01/06/22 13:40 Fluid Monocytes 10.0 % 01/06/22 13:40 Fluid Eosinophils 19.0 % 01/06/22 13:40 Fluid Basophils 2.0 % 01/06/22 13:40 Fluid Glucose 96 mg/dL (40-70) H 01/06/22 13:40 Fluid Total Protein < 3.0 (15.0-45.0) L 01/06/22 13:40 Fluid LDH 149 01/06/22 13:40 Vancomycin Trough 11.8 ug/mL (5.0-20.0) 01/22/22 10:14 Random Vancomycin 10.5 ug/mL (0-40.0) 01/04/22 05:00 Coronavirus (PCR) Negative (Negative) 11/10/21 08:30 Blood Type O POSITIVE 12/14/21 10:30 Antibody Screen Negative 12/14/21 10:30 Crossmatch See Detail 12/14/21 10:30 Gamble/IV: Voiding Method External Female Catheter Active Medications - Current Medications Current Medications: Generic Name Dose Route Start Last Admin Trade Name Freq PRN Reason Stop Dose Admin Acetaminophen 650 mg 12/14/21 04:12 01/26/22 03:19 Acetaminophen 325 Mg/10.15 Ml Oral Liqd Unit Dose FEEDTUBE 650 mg Q6H PRN Administration Non Cardiac Pain or Temp>100.5 Hydrocodone Bitart/Acetaminophen 1 each 11/21/21 10:00 01/27/22 09:00 Hydrocodone/Acetaminophen 10-325mg Tab FEEDTUBE 1 each TID YOSSI Administration Alprazolam 0.25 mg 01/22/22 03:00 01/26/22 03:19 Alprazolam 0.5 Mg Tab FEEDTUBE 0.25 mg Q8H PRN Administration Agitation Lipase/Protease/Amylase 1 each 11/08/21 11:09 Lipase 10,500/Protease 25,000/Amylase 43,750 (Units) Dr Lema FEEDTUBE PRN PRN For Clogged Feeding Tube Buspirone HCl 7.5 mg 12/30/21 10:00 01/27/22 09:44 Buspirone 5 Mg Tab FEEDTUBE 7.5 mg BID YOSSI Administration Dextrose 50 ml 01/16/22 14:00 Dextrose 50% In Water (25gm) 50 Ml Syringe IV Q30MIN PRN Hypoglycemia Protocol Docusate Sodium 100 mg 12/30/21 10:00 01/27/22 09:46 Docusate Sodium 100 Mg/10 Ml Oral Liqd FEEDTUBE Not Given BID YOSSI Furosemide 20 mg 01/08/22 10:00 01/27/22 09:44 Furosemide 20 Mg Tab PO 20 mg QDAY YOSSI Administration Gabapentin 100 mg 01/22/22 10:00 01/27/22 09:49 Gabapentin 500 Mg/10 Ml Oral Liqd FEEDTUBE 100 mg QDAY YOSSI Administration Hydrophilic Ointment 1 applic 11/06/21 04:02 Lip Therapy Vaseline TP Q2HR PRN Dry Lips Lansoprazole 30 mg 11/24/21 22:00 01/27/22 09:44 Lansoprazole 30 Mg Solutab FEEDTUBE 30 mg BID YOSSI Administration Levothyroxine Sodium 125 mcg 12/31/21 06:00 01/27/22 06:49 Levothyroxine 125 Mcg Tab FEEDTUBE 125 mcg DAILY@0600 YOSSI Administration Melatonin 5 mg 12/05/21 22:00 01/26/22 21:13 Melatonin 5 Mg Tab PO 5 mg QHS YOSSI Administration Metoclopramide HCl 10 mg 01/11/22 13:25 01/21/22 21:43 Metoclopramide 10 Mg/2 Ml Inj IV 10 mg Q6H PRN Administration Nausea And Vomiting Metoprolol Tartrate 6.25 mg 12/30/21 10:00 01/27/22 09:46 Metoprolol Tartrate 25 Mg Tab FEEDTUBE Not Given BID YOSSI Midodrine 10 mg 01/21/22 08:00 01/27/22 09:00 Midodrine 5 Mg Tab FEEDTUBE 10 mg TID@0800,1200,1600 [facility] Administration Multi-Ingred Cream/Lotion/Oil/Oint 1 applic 11/06/21 04:02 Mineral Oil/Petrolatum, White Ophth Oint 3.5 Gm OU Q4HR PRN Dry Eye(s) Ondansetron HCl 4 mg 12/05/21 10:00 01/20/22 22:10 Ondansetron 4 Mg/2 Ml Inj IV 4 mg Q8H PRN Administration Nausea And Vomiting Polyethylene Glycol 17 gm 12/30/21 10:00 01/27/22 09:46 Polyethylene Glycol 3350 17 Gm Powder FEEDTUBE Not Given QDAY YOSSI Pravastatin Sodium 20 mg 12/30/21 22:00 01/26/22 21:13 Pravastatin 20 Mg Tab FEEDTUBE 20 mg QHS [facility] Administration Quetiapine Fumarate 25 mg 12/30/21 10:00 01/27/22 09:44 Quetiapine 25 Mg Tab FEEDTUBE 25 mg QAM YOSSI Administration Quetiapine Fumarate 50 mg 12/30/21 22:00 01/26/22 21:13 Quetiapine 25 Mg Tab FEEDTUBE 50 mg QHS [facility] Administration Senna 17.6 mg 12/29/21 11:00 01/27/22 09:47 Sennosides Oral Liqd 8.8 Mg/5 Ml Oral Liqd FEEDTUBE Not Given Q12HR YOSSI Simethicone 80 mg 01/15/22 15:06 01/15/22 21:10 Simethicone 80 Mg Chew Tab PO 80 mg PC PRN Administration Gas pain Simple Syrup 15 ml 11/08/21 11:09 Simple Syrup 15 Ml FEEDTUBE PRN PRN Hypoglycemia Simple Syrup 30 ml 11/08/21 11:09 Simple Syrup 15 Ml FEEDTUBE PRN PRN Hypoglycemia Sodium Bicarbonate 325 mg 11/08/21 11:09 01/09/22 20:25 Sodium Bicarbonate 325 Mg Tab FEEDTUBE 325 mg PRN PRN Administration For Clogged Feeding Tube Sodium Chloride 10 ml 11/04/21 10:00 01/27/22 09:44 Sodium Chloride 0.9% 10 Ml Flush Syringe IV 10 ml BID YOSSI Administration Sodium Chloride 10 ml 11/04/21 02:03 01/09/22 06:35 Sodium Chloride 0.9% 10 Ml Flush Syringe IV 10 ml PRN PRN Administration LINE FLUSH Spironolactone 25 mg 12/30/21 10:00 01/27/22 09:43 Spironolactone 25 Mg Tab FEEDTUBE 25 mg QDAY YOSSI Administration Sucralfate 1 gm 12/30/21 12:00 01/27/22 06:49 Sucralfate 1 Gm/10 Ml Oral Liqd FEEDTUBE 1 gm Q6HR YOSSI Administration Trazodone HCl 50 mg 12/04/21 22:00 01/26/22 21:13 Trazodone 50 Mg Tab PO 50 mg QHS YOSSI Administration Nutrition/Malnutrition Assess - Dietary Evaluation Nutrition/Malnutrition Findings: Nutrition Notes Start: 11/04/21 17:16 Freq: Status: Active Protocol: Document 01/26/22 14:39 YOVANI (Rec: 01/26/22 14:45 YOVANI [id number]) Nutrition Notes Initial or Follow up Reassessment Current Diagnosis Coronary Artery Disease, Diabetes,Hypertension,Heart Failure,Respiratory Failure Other Pertinent Diagnosis Bilat pleural effusion Current Diet TF - Vital AF 1.2 at 35ml/hr Labs/Tests Reviewed Pertinent Medications 25% Human albumin x 1 dose, Lasix x 1 dose Height 5 ft Weight 62.6 kg [place] Body Weight (kg) 45.45 BMI 26.9 Weight Status Overweight Subjective/Other Information Pt tolerating TF at goal rate. Pt remains on T-piece trials , however, was on vent support at time of visit today; chest tube still in place with substantial output. Percent of energy/protein needs met: 84% energy and pro Burn Absent Trauma Absent #2 Nutrition Diagnosis Inadequate enteral nutrition infusion #1 Nutrition Diagnosis Inadequate oral intake Diagnosis Progress(for reassessment Continues documentation) Is patient on ventilator? Yes Is Patient Ambulatory and/or Out of Bed No REE-([place] Jarek-confined to bed) 1210.212 Calculation Used for Recommendations [facility] Additional Notes Pro needs 1.2-2g/k-125g/ day Fluid needs 1ml/kcal Nutrition Intervention Nutrition Support: Continue Vital AF 1.2 at 35ml/ hr with 50ml water flush q4h. Kcal 1,008 Protein (gm) 63 Carbohydrates (gm) 45 Fat (gm) 45 Fluid (mL) 681 Fiber (gm) 4 Add Supplement/Snack (indicate name/kcal Jaswant BID /protein ) Provides kCal: 190 Provides Protein (gm) 5 Goal #1 TF tolerance Goal #2 TF to meet at least 75% energy and pro needs Goal #3 Wound healing Follow-Up By: 02/02/22 Additional Comments F/U: stable TF, wt, vent status, wound healing/Jaswant administration
[2022-01-27] MEDS: ALPRAZolam 0.5 MG TAB FEEDTUBE PRN ×2 (12:50→20:12)
[2022-01-27] MEDS: SULFAMETHOXAZOLE/TRIMETHOPRIM 200-40 MG/5 ML ORAL LIQD 30 ML PO SCH (13:25)
--- NOTE | 2022-01-27 17:30 | Progress Note ---
Assessment and Plan Severe Sepsis POA vs septic shock- 11/03/2021 blood culture: 2 sets positive for GPC -Repeat cultures positive for MRSA Acute respiratory failure with hypoxia, s/p trach on MVS Acute microcytic anemia Bilateral pneumonia Left pleural effusion Cardiomyopathy EF 30-35% Moderate pulmonary HTN RVSP 49 Acute DVT s/p IVC Anemia Mild hyponatremia Continue ATP to Vapotherm Right chest tube to pleuravac- discussed with hospitalist service, she may benefit from PLurex catheter for intermittent drainage Continue to monitor hemoglobin and transfuse as clinically indicated to keep HgB>7g/dL s/p Antibiotics for MRSA bacteremia. Bactrim for chronic suppression per ID Maintain sleep-wake cycle PT/OT, increase activity Discharge planning - continue to titrate supplemental oxygen to keep SPO2 88-90% - VAP bundle addressed, aspiration precautions, HOB >40 - continue bronchodilators with pulmonary hygiene per RT - continue avoid nephrotoxins, renally dose all medications - Accuchecks with glycemic control per SSI (While critically ill target blood glucose of 140-180 mg/dL; avoid hypoglycemia) - continue to avoid benzodiazepines, reduce the possibility of delirium -trend temperature curve, trend WCC, - Maintenance of sleep-wake cycle, avoid delirium -Stress ulcer prophylaxis (Lansoprazole) -VTE prophylaxis- s/p IVC filter. No anticoagulation 11/18 EGD- Large cratered ulcer in the posterior duodenal bulb about 2 cm in diameter.Visible vessel present. Mild active oozing from the ulcer bed. A total of 3 injections were performed around the ulcer for a total of 2.5 cc of dilute epinephrine and hemostasis was obtained. -mobility, off loading and frequent turning to prevent pressure ulcer -continue with enteric nutritional support via PEG,at goal rate - Continue to monitor hemodynamics closely - continue other care per attending / other consultants CONDITION: FAIR PROGNOSIS: GUARDED CODE STATUS: FULL CODE Subjective Date of service: 01/27/22 Principal diagnosis: Septic shock; AHRF; Anemia; Pneumonia; pleural effusion; HFrEF; Pulm HTN Interval history: Follow up fro acute hypoxemic resp failure s/p tracheostomy to MVS ; Septic and cardiogenic shock; severe anemia; Patient seen and examined. Vitals, labs, medications, chart and imaging reviewed. Discussed with respiratory and nursing care staff. ATP to Vapotherm 25L 35% Chest tube output 1L yesterday Objective Vital Signs - 12hr 01/27/22 01/27/22 01/27/22 06:00 07:00 08:00 Temperature 97.9 F Pulse Rate 60 74 60 Pulse Rate [ 69 From Monitor] Respiratory 10 L 12 13 Rate Blood Pressure 98/41 154/76 116/47 O2 Sat by Pulse 100 100 100 Oximetry O2 Sat by Pulse Oximetry [ Assessment] 01/27/22 01/27/22 01/27/22 08:24 09:00 09:41 Temperature Pulse Rate 61 62 Pulse Rate [ From Monitor] Respiratory 14 Rate Blood Pressure 116/47 132/59 O2 Sat by Pulse 100 100 95 Oximetry O2 Sat by Pulse 99 Oximetry [ Assessment] 01/27/22 01/27/22 01/27/22 09:43 10:00 11:00 Temperature Pulse Rate 69 91 H 82 Pulse Rate [ From Monitor] Respiratory 14 20 Rate Blood Pressure 132/59 174/81 174/81 O2 Sat by Pulse 87 99 Oximetry O2 Sat by Pulse Oximetry [ Assessment] 01/27/22 01/27/22 01/27/22 12:00 15:34 15:35 Temperature 98.2 F Pulse Rate 64 Pulse Rate [ 66 From Monitor] Respiratory 33 H Rate Blood Pressure 149/58 O2 Sat by Pulse 99 100 Oximetry O2 Sat by Pulse 100 Oximetry [ Assessment] 01/27/22 16:07 Temperature Pulse Rate Pulse Rate [ From Monitor] Respiratory Rate Blood Pressure O2 Sat by Pulse 100 Oximetry O2 Sat by Pulse Oximetry [ Assessment] Constitutional: no acute distress, alert, other (trach to full support) Eyes: non-icteric ENT: oropharynx moist, other (+ Midline tracheostomy with minimal secretions) Neck: supple, no lymphadenopathy, no JVD Effort: normal, mildly labored Ascultation: Bilateral: diminished breath sounds, rhonchi, other (Right chest tube) Percussion: Right: not dull, Left: dull (bases) Cardiovascular: regular rate and rhythm, other (S1,S2) Gastrointestinal: normoactive bowel sounds, soft, non-tender, non-distended (protuberant) Integumentary: normal Extremities: no cyanosis, pink and warm, pulses normal, edema (upper etremities), anasarca Neurologic: non-focal exam (grossly), pupils equal and round, CN II-XII normal Psychiatric: affect normal CBC and BMP: 01/26/22 10:16 01/26/22 10:16 ABG, PT/INR, D-dimer: ABG ABG pH 7.488 pH Units (7.350-7.450) H 01/25/22 12:20 ABG pCO2 38.2 mm Hg 01/25/22 12:20 ABG pO2 58.9 mm Hg (80.0-90.0) L 01/25/22 12:20 ABG O2 Saturation 94.9 % (95.0-99.0) L 01/25/22 12:20 PT/INR, D-dimer PT 16.9 Sec. (12.2-14.9) H 01/06/22 04:06 INR 1.23 (0.87-1.13) H 01/06/22 04:06 D-Dimer 2655.00 ng/mlDDU (0-234) H 11/11/21 04:28 Abnormal lab findings: Abnormal Labs 11/03/21 11/03/21 11/03/21 22:32 22:32 22:32 WBC 29.3 H RBC 2.93 L Hgb 6.1 L Hct 21.9 L MCV 75 L MCH 21 L MCHC 28 L RDW 19.7 H Plt Count Eos % (Auto) Eos # (Auto) Seg Neuts % (Manual) 97.0 H Lymphocytes % (Manual) 3.0 L Seg Neutrophils # Seg Neutrophils # Man 28.4 H Lymphocytes # (Manual) 0.9 L Monocytes # (Manual) PT 18.6 H INR 1.40 H D-Dimer ABG pH ABG pO2 ABG HCO3 ABG O2 Saturation ABG Base Excess ABG Hemoglobin Oxyhemoglobin Sodium Potassium Chloride Carbon Dioxide 20 L BUN 33 H Creatinine Glucose 119 H POC Glucose Lactic Acid Calcium 8.3 L Phosphorus Magnesium AST ALT Alkaline Phosphatase Lactate Dehydrogenase Troponin T 0.035 H C-Reactive Protein NT-Pro-B Natriuret Pep Total Protein Albumin LDL Cholesterol Direct 34 L Vitamin B12 Urine WBC (Auto) Fluid Glucose Fluid Total Protein Vancomycin Trough Crossmatch 11/03/21 11/03/21 11/03/21 22:32 22:32 23:57 WBC RBC Hgb Hct MCV MCH MCHC RDW Plt Count Eos % (Auto) Eos # (Auto) Seg Neuts % (Manual) Lymphocytes % (Manual) Seg Neutrophils # Seg Neutrophils # Man Lymphocytes # (Manual) Monocytes # (Manual) PT INR D-Dimer ABG pH ABG pO2 ABG HCO3 ABG O2 Saturation ABG Base Excess ABG Hemoglobin Oxyhemoglobin Sodium Potassium Chloride Carbon Dioxide BUN Creatinine Glucose POC Glucose Lactic Acid 3.70 H* Calcium Phosphorus Magnesium AST ALT Alkaline Phosphatase 139 H Lactate Dehydrogenase Troponin T C-Reactive Protein NT-Pro-B Natriuret Pep 7895 H Total Protein Albumin 3.5 L LDL Cholesterol Direct Vitamin B12 Urine WBC (Auto) Fluid Glucose Fluid Total Protein Vancomycin Trough Crossmatch See Detail 11/04/21 11/04/21 11/05/21 00:59 13:58 00:51 WBC 27.9 H RBC 3.28 L Hgb 7.3 L Hct 25.5 L MCV 78 L MCH 22 L MCHC 29 L RDW 19.1 H Plt Count Eos % (Auto) Eos # (Auto) Seg Neuts % (Manual) 96.0 H Lymphocytes % (Manual) 2.0 L Seg Neutrophils # Seg Neutrophils # Man 26.8 H Lymphocytes # (Manual) 0.6 L Monocytes # (Manual) PT INR D-Dimer ABG pH ABG pO2 ABG HCO3 ABG O2 Saturation ABG Base Excess ABG Hemoglobin Oxyhemoglobin Sodium Potassium Chloride Carbon Dioxide BUN Creatinine Glucose POC Glucose Lactic Acid Calcium Phosphorus Magnesium AST ALT Alkaline Phosphatase Lactate Dehydrogenase Troponin T 0.051 H D 0.032 H D C-Reactive Protein NT-Pro-B Natriuret Pep Total Protein Albumin LDL Cholesterol Direct Vitamin B12 Urine WBC (Auto) Fluid Glucose Fluid Total Protein Vancomycin Trough Crossmatch 11/05/21 11/05/21 11/05/21 06:11 06:11 06:11 WBC 31.8 H RBC 3.57 L Hgb 8.0 L Hct 27.7 L MCV 78 L MCH 22 L MCHC 29 L RDW 19.2 H Plt Count Eos % (Auto) Eos # (Auto) Seg Neuts % (Manual) 91.0 H Lymphocytes % (Manual) 4.5 L Seg Neutrophils # Seg Neutrophils # Man 28.9 H Lymphocytes # (Manual) Monocytes # (Manual) 1.1 H PT INR D-Dimer 1494.53 H ABG pH ABG pO2 ABG HCO3 ABG O2 Saturation ABG Base Excess ABG Hemoglobin Oxyhemoglobin Sodium Potassium Chloride Carbon Dioxide 19 L BUN 42 H Creatinine Glucose 115 H POC Glucose Lactic Acid Calcium Phosphorus Magnesium AST 43 H ALT Alkaline Phosphatase Lactate Dehydrogenase 187 H Troponin T C-Reactive Protein 22.20 H NT-Pro-B Natriuret Pep Total Protein 6.0 L Albumin 3.2 L LDL Cholesterol Direct Vitamin B12 Urine WBC (Auto) Fluid Glucose Fluid Total Protein Vancomycin Trough Crossmatch 11/05/21 11/05/21 11/06/21 06:11 12:15 00:30 WBC RBC Hgb Hct MCV MCH MCHC RDW Plt Count Eos % (Auto) Eos # (Auto) Seg Neuts % (Manual) Lymphocytes % (Manual) Seg Neutrophils # Seg Neutrophils # Man Lymphocytes # (Manual) Monocytes # (Manual) PT INR D-Dimer ABG pH ABG pO2 ABG HCO3 ABG O2 Saturation ABG Base Excess ABG Hemoglobin Oxyhemoglobin Sodium Potassium Chloride Carbon Dioxide BUN Creatinine Glucose POC Glucose 113 H 69 L Lactic Acid Calcium Phosphorus Magnesium AST ALT Alkaline Phosphatase Lactate Dehydrogenase Troponin T 0.033 H C-Reactive Protein NT-Pro-B Natriuret Pep Total Protein Albumin LDL Cholesterol Direct Vitamin B12 Urine WBC (Auto) Fluid Glucose Fluid Total Protein Vancomycin Trough Crossmatch 11/06/21 11/06/21 11/06/21 05:50 15:50 15:50 WBC 25.5 H RBC 3.62 L Hgb 8.0 L Hct 27.5 L MCV 76 L MCH 22 L MCHC 29 L RDW 19.6 H Plt Count Eos % (Auto) Eos # (Auto) Seg Neuts % (Manual) 92.0 H Lymphocytes % (Manual) 5.0 L Seg Neutrophils # Seg Neutrophils # Man 23.5 H Lymphocytes # (Manual) Monocytes # (Manual) PT INR D-Dimer ABG pH 7.305 L ABG pO2 ABG HCO3 15.8 L ABG O2 Saturation ABG Base Excess -9.6 L ABG Hemoglobin 8.6 L Oxyhemoglobin 94.6 L Sodium Potassium Chloride 113.9 H Carbon Dioxide 17 L BUN 56 H Creatinine Glucose 114 H POC Glucose Lactic Acid Calcium 7.9 L Phosphorus Magnesium AST 1410 H ALT 934 H Alkaline Phosphatase 142 H Lactate Dehydrogenase Troponin T C-Reactive Protein NT-Pro-B Natriuret Pep Total Protein 5.0 L Albumin 2.6 L LDL Cholesterol Direct Vitamin B12 Urine WBC (Auto) Fluid Glucose Fluid Total Protein Vancomycin Trough Crossmatch 11/07/21 11/07/21 11/07/21 03:30 04:50 08:07 WBC RBC Hgb Hct MCV MCH MCHC RDW Plt Count Eos % (Auto) Eos # (Auto) Seg Neuts % (Manual) Lymphocytes % (Manual) Seg Neutrophils # Seg Neutrophils # Man Lymphocytes # (Manual) Monocytes # (Manual) PT INR D-Dimer ABG pH ABG pO2 296.9 H ABG HCO3 18.1 L ABG O2 Saturation 99.5 H ABG Base Excess -5.9 L ABG Hemoglobin 7.6 L Oxyhemoglobin Sodium Potassium Chloride Carbon Dioxide BUN Creatinine Glucose POC Glucose 106 H 108 H Lactic Acid Calcium Phosphorus Magnesium AST ALT Alkaline Phosphatase Lactate Dehydrogenase Troponin T C-Reactive Protein NT-Pro-B Natriuret Pep Total Protein Albumin LDL Cholesterol Direct Vitamin B12 Urine WBC (Auto) Fluid Glucose Fluid Total Protein Vancomycin Trough Crossmatch 11/08/21 11/08/21 11/08/21 03:10 18:05 23:43 WBC RBC Hgb Hct MCV MCH MCHC RDW Plt Count Eos % (Auto) Eos # (Auto) Seg Neuts % (Manual) Lymphocytes % (Manual) Seg Neutrophils # Seg Neutrophils # Man Lymphocytes # (Manual) Monocytes # (Manual) PT INR D-Dimer ABG pH ABG pO2 127.4 H ABG HCO3 ABG O2 Saturation ABG Base Excess -3.4 L ABG Hemoglobin 7.4 L Oxyhemoglobin Sodium Potassium Chloride Carbon Dioxide BUN Creatinine Glucose POC Glucose 113 H 141 H Lactic Acid Calcium Phosphorus Magnesium AST ALT Alkaline Phosphatase Lactate Dehydrogenase Troponin T C-Reactive Protein NT-Pro-B Natriuret Pep Total Protein Albumin LDL Cholesterol Direct Vitamin B12 Urine WBC (Auto) Fluid Glucose Fluid Total Protein Vancomycin Trough Crossmatch 11/08/21 11/08/21 11/09/21 Unknown Unknown 02:00 WBC 14.5 H RBC 3.35 L Hgb 7.5 L 8.1 L Hct 25.4 L 27.6 L MCV 76 L 76 L MCH 23 L 22 L MCHC RDW 19.9 H 19.9 H Plt Count Eos % (Auto) Eos # (Auto) Seg Neuts % (Manual) Lymphocytes % (Manual) Seg Neutrophils # Seg Neutrophils # Man Lymphocytes # (Manual) Monocytes # (Manual) PT INR D-Dimer ABG pH ABG pO2 ABG HCO3 ABG O2 Saturation ABG Base Excess ABG Hemoglobin Oxyhemoglobin Sodium 154 H D Potassium 3.3 L Chloride 120.7 H Carbon Dioxide 20 L BUN 38 H Creatinine Glucose POC Glucose Lactic Acid Calcium 8.3 L Phosphorus Magnesium AST ALT Alkaline Phosphatase Lactate Dehydrogenase Troponin T C-Reactive Protein NT-Pro-B Natriuret Pep Total Protein Albumin LDL Cholesterol Direct Vitamin B12 Urine WBC (Auto) Fluid Glucose Fluid Total Protein Vancomycin Trough Crossmatch 11/09/21 11/09/21 11/09/21 02:00 02:31 05:12 WBC RBC Hgb Hct MCV MCH MCHC RDW Plt Count Eos % (Auto) Eos # (Auto) Seg Neuts % (Manual) Lymphocytes % (Manual) Seg Neutrophils # Seg Neutrophils # Man Lymphocytes # (Manual) Monocytes # (Manual) PT INR D-Dimer ABG pH 7.479 H ABG pO2 121.3 H ABG HCO3 ABG O2 Saturation ABG Base Excess ABG Hemoglobin 7.3 L Oxyhemoglobin Sodium Potassium Chloride 112.5 H Carbon Dioxide BUN 33 H Creatinine Glucose 161 H POC Glucose 135 H Lactic Acid Calcium Phosphorus Magnesium AST 251 H ALT 481 H Alkaline Phosphatase Lactate Dehydrogenase Troponin T C-Reactive Protein NT-Pro-B Natriuret Pep Total Protein 5.0 L Albumin 2.8 L LDL Cholesterol Direct Vitamin B12 Urine WBC (Auto) Fluid Glucose Fluid Total Protein Vancomycin Trough Crossmatch 11/09/21 11/09/21 11/09/21 11:33 16:32 23:28 WBC RBC Hgb Hct MCV MCH MCHC RDW Plt Count Eos % (Auto) Eos # (Auto) Seg Neuts % (Manual) Lymphocytes % (Manual) Seg Neutrophils # Seg Neutrophils # Man Lymphocytes # (Manual) Monocytes # (Manual) PT INR D-Dimer ABG pH ABG pO2 ABG HCO3 ABG O2 Saturation ABG Base Excess ABG Hemoglobin Oxyhemoglobin Sodium Potassium Chloride Carbon Dioxide BUN Creatinine Glucose POC Glucose 132 H 133 H 143 H Lactic Acid Calcium Phosphorus Magnesium AST ALT Alkaline Phosphatase Lactate Dehydrogenase Troponin T C-Reactive Protein NT-Pro-B Natriuret Pep Total Protein Albumin LDL Cholesterol Direct Vitamin B12 Urine WBC (Auto) Fluid Glucose Fluid Total Protein Vancomycin Trough Crossmatch 11/10/21 11/10/21 11/10/21 04:00 04:00 05:35 WBC 16.0 H RBC 3.61 L Hgb 8.0 L Hct 27.1 L MCV 75 L MCH 22 L MCHC RDW 20.4 H Plt Count Eos % (Auto) Eos # (Auto) Seg Neuts % (Manual) Lymphocytes % (Manual) Seg Neutrophils # Seg Neutrophils # Man Lymphocytes # (Manual) Monocytes # (Manual) PT INR D-Dimer ABG pH ABG pO2 ABG HCO3 ABG O2 Saturation ABG Base Excess ABG Hemoglobin Oxyhemoglobin Sodium 149 H Potassium Chloride 114.1 H Carbon Dioxide BUN 31 H Creatinine Glucose 148 H POC Glucose 132 H Lactic Acid Calcium 8.2 L Phosphorus Magnesium AST ALT Alkaline Phosphatase Lactate Dehydrogenase Troponin T C-Reactive Protein NT-Pro-B Natriuret Pep Total Protein Albumin LDL Cholesterol Direct Vitamin B12 Urine WBC (Auto) Fluid Glucose Fluid Total Protein Vancomycin Trough Crossmatch 11/10/21 11/10/21 11/10/21 11:31 14:08 15:35 WBC RBC Hgb Hct MCV MCH MCHC RDW Plt Count Eos % (Auto) Eos # (Auto) Seg Neuts % (Manual) Lymphocytes % (Manual) Seg Neutrophils # Seg Neutrophils # Man Lymphocytes # (Manual) Monocytes # (Manual) PT INR D-Dimer ABG pH ABG pO2 126.6 H ABG HCO3 ABG O2 Saturation ABG Base Excess ABG Hemoglobin 7.4 L Oxyhemoglobin Sodium Potassium Chloride Carbon Dioxide BUN Creatinine Glucose POC Glucose 147 H Lactic Acid Calcium Phosphorus Magnesium AST ALT Alkaline Phosphatase Lactate Dehydrogenase Troponin T C-Reactive Protein NT-Pro-B Natriuret Pep Total Protein Albumin LDL Cholesterol Direct Vitamin B12 1823 H Urine WBC (Auto) Fluid Glucose Fluid Total Protein Vancomycin Trough Crossmatch 11/10/21 11/11/21 11/11/21 17:53 00:55 04:28 WBC RBC Hgb Hct MCV MCH MCHC RDW Plt Count Eos % (Auto) Eos # (Auto) Seg Neuts % (Manual) Lymphocytes % (Manual) Seg Neutrophils # Seg Neutrophils # Man Lymphocytes # (Manual) Monocytes # (Manual) PT INR D-Dimer ABG pH ABG pO2 ABG HCO3 ABG O2 Saturation ABG Base Excess ABG Hemoglobin Oxyhemoglobin Sodium 149 H Potassium Chloride 112.2 H Carbon Dioxide BUN 34 H Creatinine Glucose 148 H POC Glucose 140 H 145 H Lactic Acid Calcium 7.9 L Phosphorus Magnesium AST 53 H ALT 203 H Alkaline Phosphatase Lactate Dehydrogenase Troponin T C-Reactive Protein NT-Pro-B Natriuret Pep Total Protein 4.9 L Albumin 2.6 L LDL Cholesterol Direct Vitamin B12 Urine WBC (Auto) Fluid Glucose Fluid Total Protein Vancomycin Trough Crossmatch 11/11/21 11/11/21 11/11/21 04:28 04:28 05:28 WBC 20.9 H RBC 3.47 L Hgb 7.5 L Hct 26.0 L MCV 75 L MCH 22 L MCHC 29 L RDW 21.6 H Plt Count 132 L Eos % (Auto) Eos # (Auto) Seg Neuts % (Manual) Lymphocytes % (Manual) Seg Neutrophils # Seg Neutrophils # Man Lymphocytes # (Manual) Monocytes # (Manual) PT INR D-Dimer 2655.00 H ABG pH ABG pO2 ABG HCO3 ABG O2 Saturation ABG Base Excess ABG Hemoglobin Oxyhemoglobin Sodium Potassium Chloride Carbon Dioxide BUN Creatinine Glucose POC Glucose 154 H Lactic Acid Calcium Phosphorus Magnesium AST ALT Alkaline Phosphatase Lactate Dehydrogenase Troponin T C-Reactive Protein NT-Pro-B Natriuret Pep Total Protein Albumin LDL Cholesterol Direct Vitamin B12 Urine WBC (Auto) Fluid Glucose Fluid Total Protein Vancomycin Trough Crossmatch 11/11/21 11/11/21 11/12/21 12:38 18:13 00:14 WBC RBC Hgb Hct MCV MCH MCHC RDW Plt Count Eos % (Auto) Eos # (Auto) Seg Neuts % (Manual) Lymphocytes % (Manual) Seg Neutrophils # Seg Neutrophils # Man Lymphocytes # (Manual) Monocytes # (Manual) PT INR D-Dimer ABG pH ABG pO2 ABG HCO3 ABG O2 Saturation ABG Base Excess ABG Hemoglobin Oxyhemoglobin Sodium Potassium Chloride Carbon Dioxide BUN Creatinine Glucose POC Glucose 137 H 108 H 137 H Lactic Acid Calcium Phosphorus Magnesium AST ALT Alkaline Phosphatase Lactate Dehydrogenase Troponin T C-Reactive Protein NT-Pro-B Natriuret Pep Total Protein Albumin LDL Cholesterol Direct Vitamin B12 Urine WBC (Auto) Fluid Glucose Fluid Total Protein Vancomycin Trough Crossmatch 11/12/21 11/12/21 11/12/21 05:40 06:24 11:12 WBC RBC Hgb Hct MCV MCH MCHC RDW Plt Count Eos % (Auto) Eos # (Auto) Seg Neuts % (Manual) Lymphocytes % (Manual) Seg Neutrophils # Seg Neutrophils # Man Lymphocytes # (Manual) Monocytes # (Manual) PT INR D-Dimer ABG pH 7.586 H ABG pO2 150.6 H ABG HCO3 27.2 H ABG O2 Saturation 99.1 H ABG Base Excess 5.2 H ABG Hemoglobin 7.5 L Oxyhemoglobin Sodium Potassium Chloride Carbon Dioxide BUN Creatinine Glucose POC Glucose 132 H 140 H Lactic Acid Calcium Phosphorus Magnesium AST ALT Alkaline Phosphatase Lactate Dehydrogenase Troponin T C-Reactive Protein NT-Pro-B Natriuret Pep Total Protein Albumin LDL Cholesterol Direct Vitamin B12 Urine WBC (Auto) Fluid Glucose Fluid Total Protein Vancomycin Trough Crossmatch 11/12/21 11/12/21 11/12/21 14:50 14:50 17:13 WBC 19.8 H RBC 3.27 L Hgb 7.1 L Hct 24.5 L MCV 75 L MCH 22 L MCHC 29 L RDW 22.3 H Plt Count Eos % (Auto) Eos # (Auto) Seg Neuts % (Manual) Lymphocytes % (Manual) Seg Neutrophils # Seg Neutrophils # Man Lymphocytes # (Manual) Monocytes # (Manual) PT INR D-Dimer ABG pH ABG pO2 ABG HCO3 ABG O2 Saturation ABG Base Excess ABG Hemoglobin Oxyhemoglobin Sodium 150 H Potassium 3.3 L Chloride 112.0 H Carbon Dioxide BUN 40 H Creatinine Glucose 151 H POC Glucose 121 H Lactic Acid Calcium 7.4 L Phosphorus 1.70 L Magnesium 1.40 L AST ALT Alkaline Phosphatase Lactate Dehydrogenase Troponin T C-Reactive Protein NT-Pro-B Natriuret Pep Total Protein Albumin LDL Cholesterol Direct Vitamin B12 Urine WBC (Auto) Fluid Glucose Fluid Total Protein Vancomycin Trough Crossmatch 11/12/21 11/13/21 11/13/21 23:19 05:34 06:30 WBC RBC Hgb Hct MCV MCH MCHC RDW Plt Count Eos % (Auto) Eos # (Auto) Seg Neuts % (Manual) Lymphocytes % (Manual) Seg Neutrophils # Seg Neutrophils # Man Lymphocytes # (Manual) Monocytes # (Manual) PT INR D-Dimer ABG pH ABG pO2 ABG HCO3 ABG O2 Saturation ABG Base Excess ABG Hemoglobin Oxyhemoglobin Sodium 149 H Potassium Chloride 60.0 L Carbon Dioxide BUN 40 H Creatinine Glucose 146 H POC Glucose 113 H 132 H Lactic Acid Calcium 7.3 L Phosphorus Magnesium 2.40 H AST ALT 72 H Alkaline Phosphatase Lactate Dehydrogenase Troponin T C-Reactive Protein NT-Pro-B Natriuret Pep Total Protein 5.2 L Albumin 2.2 L LDL Cholesterol Direct Vitamin B12 Urine WBC (Auto) Fluid Glucose Fluid Total Protein Vancomycin Trough Crossmatch 11/13/21 11/13/21 11/13/21 06:30 08:30 11:19 WBC 21.2 H RBC 3.12 L Hgb 6.8 L Hct 23.2 L MCV 74 L MCH 22 L MCHC 29 L RDW 22.2 H Plt Count 135 L Eos % (Auto) Eos # (Auto) Seg Neuts % (Manual) Lymphocytes % (Manual) Seg Neutrophils # Seg Neutrophils # Man Lymphocytes # (Manual) Monocytes # (Manual) PT INR D-Dimer ABG pH ABG pO2 ABG HCO3 ABG O2 Saturation ABG Base Excess ABG Hemoglobin Oxyhemoglobin Sodium Potassium Chloride Carbon Dioxide BUN Creatinine Glucose POC Glucose 136 H Lactic Acid Calcium Phosphorus Magnesium AST ALT Alkaline Phosphatase Lactate Dehydrogenase Troponin T C-Reactive Protein NT-Pro-B Natriuret Pep Total Protein Albumin LDL Cholesterol Direct Vitamin B12 Urine WBC (Auto) Fluid Glucose Fluid Total Protein Vancomycin Trough Crossmatch See Detail 11/13/21 11/14/21 11/14/21 18:21 00:01 04:46 WBC 20.0 H RBC 3.41 L Hgb 7.9 L Hct 26.8 L MCV MCH 23 L MCHC 29 L RDW 24.0 H Plt Count Eos % (Auto) Eos # (Auto) Seg Neuts % (Manual) Lymphocytes % (Manual) Seg Neutrophils # Seg Neutrophils # Man Lymphocytes # (Manual) Monocytes # (Manual) PT INR D-Dimer ABG pH ABG pO2 ABG HCO3 ABG O2 Saturation ABG Base Excess ABG Hemoglobin Oxyhemoglobin Sodium Potassium Chloride Carbon Dioxide BUN Creatinine Glucose POC Glucose 149 H 141 H Lactic Acid Calcium Phosphorus Magnesium AST ALT Alkaline Phosphatase Lactate Dehydrogenase Troponin T C-Reactive Protein NT-Pro-B Natriuret Pep Total Protein Albumin LDL Cholesterol Direct Vitamin B12 Urine WBC (Auto) Fluid Glucose Fluid Total Protein Vancomycin Trough Crossmatch 11/14/21 11/14/21 11/14/21 04:46 05:10 11:10 WBC RBC Hgb Hct MCV MCH MCHC RDW Plt Count Eos % (Auto) Eos # (Auto) Seg Neuts % (Manual) Lymphocytes % (Manual) Seg Neutrophils # Seg Neutrophils # Man Lymphocytes # (Manual) Monocytes # (Manual) PT INR D-Dimer ABG pH ABG pO2 ABG HCO3 ABG O2 Saturation ABG Base Excess ABG Hemoglobin Oxyhemoglobin Sodium 148 H Potassium Chloride 113.1 H Carbon Dioxide BUN 43 H Creatinine Glucose 140 H POC Glucose 132 H 133 H Lactic Acid Calcium 7.5 L Phosphorus Magnesium AST ALT Alkaline Phosphatase Lactate Dehydrogenase Troponin T C-Reactive Protein NT-Pro-B Natriuret Pep Total Protein Albumin LDL Cholesterol Direct Vitamin B12 Urine WBC (Auto) Fluid Glucose Fluid Total Protein Vancomycin Trough Crossmatch 11/14/21 11/14/21 11/14/21 16:14 17:48 23:23 WBC RBC Hgb Hct MCV MCH MCHC RDW Plt Count Eos % (Auto) Eos # (Auto) Seg Neuts % (Manual) Lymphocytes % (Manual) Seg Neutrophils # Seg Neutrophils # Man Lymphocytes # (Manual) Monocytes # (Manual) PT INR D-Dimer ABG pH ABG pO2 ABG HCO3 28.0 H ABG O2 Saturation ABG Base Excess 3.1 H ABG Hemoglobin 5.8 L Oxyhemoglobin 94.8 L Sodium Potassium Chloride Carbon Dioxide BUN Creatinine Glucose POC Glucose 130 H 136 H Lactic Acid Calcium Phosphorus Magnesium AST ALT Alkaline Phosphatase Lactate Dehydrogenase Troponin T C-Reactive Protein NT-Pro-B Natriuret Pep Total Protein Albumin LDL Cholesterol Direct Vitamin B12 Urine WBC (Auto) Fluid Glucose Fluid Total Protein Vancomycin Trough Crossmatch 11/15/21 11/15/21 11/15/21 05:20 05:50 05:50 WBC 19.9 H RBC 3.50 L Hgb 8.2 L Hct 27.9 L MCV MCH 23 L MCHC 29 L RDW 24.9 H Plt Count Eos % (Auto) Eos # (Auto) Seg Neuts % (Manual) Lymphocytes % (Manual) Seg Neutrophils # Seg Neutrophils # Man Lymphocytes # (Manual) Monocytes # (Manual) PT INR D-Dimer ABG pH ABG pO2 ABG HCO3 ABG O2 Saturation ABG Base Excess ABG Hemoglobin Oxyhemoglobin Sodium 149 H Potassium Chloride 112.0 H Carbon Dioxide BUN 48 H Creatinine Glucose 152 H POC Glucose 137 H Lactic Acid Calcium 7.9 L Phosphorus Magnesium AST ALT Alkaline Phosphatase Lactate Dehydrogenase Troponin T C-Reactive Protein NT-Pro-B Natriuret Pep Total Protein Albumin LDL Cholesterol Direct Vitamin B12 Urine WBC (Auto) Fluid Glucose Fluid Total Protein Vancomycin Trough Crossmatch 11/15/21 11/15/21 11/15/21 12:12 17:07 23:24 WBC RBC Hgb Hct MCV MCH MCHC RDW Plt Count Eos % (Auto) Eos # (Auto) Seg Neuts % (Manual) Lymphocytes % (Manual) Seg Neutrophils # Seg Neutrophils # Man Lymphocytes # (Manual) Monocytes # (Manual) PT INR D-Dimer ABG pH ABG pO2 ABG HCO3 ABG O2 Saturation ABG Base Excess ABG Hemoglobin Oxyhemoglobin Sodium Potassium Chloride Carbon Dioxide BUN Creatinine Glucose POC Glucose 114 H 135 H 123 H Lactic Acid Calcium Phosphorus Magnesium AST ALT Alkaline Phosphatase Lactate Dehydrogenase Troponin T C-Reactive Protein NT-Pro-B Natriuret Pep Total Protein Albumin LDL Cholesterol Direct Vitamin B12 Urine WBC (Auto) Fluid Glucose Fluid Total Protein Vancomycin Trough Crossmatch 11/16/21 11/16/21 11/16/21 05:21 10:00 10:00 WBC 21.7 H RBC 2.57 L Hgb 6.0 L Hct 20.2 L D MCV MCH 24 L MCHC RDW 26.3 H Plt Count Eos % (Auto) Eos # (Auto) Seg Neuts % (Manual) Lymphocytes % (Manual) Seg Neutrophils # Seg Neutrophils # Man Lymphocytes # (Manual) Monocytes # (Manual) PT INR D-Dimer ABG pH ABG pO2 ABG HCO3 ABG O2 Saturation ABG Base Excess ABG Hemoglobin Oxyhemoglobin Sodium 153 H Potassium Chloride 114.9 H Carbon Dioxide BUN 74 H Creatinine Glucose 155 H POC Glucose 127 H Lactic Acid Calcium 8.1 L Phosphorus Magnesium AST ALT Alkaline Phosphatase Lactate Dehydrogenase Troponin T C-Reactive Protein NT-Pro-B Natriuret Pep Total Protein Albumin LDL Cholesterol Direct Vitamin B12 Urine WBC (Auto) Fluid Glucose Fluid Total Protein Vancomycin Trough Crossmatch 11/16/21 11/16/21 11/16/21 11:34 14:00 15:25 WBC 17.2 H RBC 2.08 L Hgb 4.7 L* Hct 16.2 L* MCV 78 L MCH 23 L MCHC 29 L RDW 26.0 H Plt Count Eos % (Auto) Eos # (Auto) Seg Neuts % (Manual) 87.0 H Lymphocytes % (Manual) 8.0 L Seg Neutrophils # Seg Neutrophils # Man 15.0 H Lymphocytes # (Manual) Monocytes # (Manual) 0.9 H PT INR D-Dimer ABG pH ABG pO2 ABG HCO3 ABG O2 Saturation ABG Base Excess ABG Hemoglobin Oxyhemoglobin Sodium Potassium Chloride Carbon Dioxide BUN Creatinine Glucose POC Glucose 131 H Lactic Acid Calcium Phosphorus Magnesium AST ALT Alkaline Phosphatase Lactate Dehydrogenase Troponin T C-Reactive Protein NT-Pro-B Natriuret Pep Total Protein Albumin LDL Cholesterol Direct Vitamin B12 Urine WBC (Auto) Fluid Glucose Fluid Total Protein Vancomycin Trough Crossmatch See Detail 11/16/21 11/16/21 11/16/21 15:25 17:21 22:43 WBC RBC Hgb 8.6 L D Hct 27.7 L D MCV MCH MCHC RDW Plt Count Eos % (Auto) Eos # (Auto) Seg Neuts % (Manual) Lymphocytes % (Manual) Seg Neutrophils # Seg Neutrophils # Man Lymphocytes # (Manual) Monocytes # (Manual) PT INR D-Dimer ABG pH ABG pO2 ABG HCO3 ABG O2 Saturation ABG Base Excess ABG Hemoglobin Oxyhemoglobin Sodium 148 H Potassium Chloride 113.2 H Carbon Dioxide BUN 84 H Creatinine Glucose 164 H POC Glucose 124 H Lactic Acid Calcium 7.6 L Phosphorus Magnesium AST ALT Alkaline Phosphatase Lactate Dehydrogenase Troponin T C-Reactive Protein NT-Pro-B Natriuret Pep Total Protein Albumin LDL Cholesterol Direct Vitamin B12 Urine WBC (Auto) Fluid Glucose Fluid Total Protein Vancomycin Trough Crossmatch 11/16/21 11/17/21 11/17/21 23:07 05:33 05:56 WBC 25.1 H RBC 3.47 L Hgb 8.7 L Hct 28.5 L MCV MCH 25 L MCHC RDW 22.3 H Plt Count Eos % (Auto) Eos # (Auto) Seg Neuts % (Manual) Lymphocytes % (Manual) Seg Neutrophils # Seg Neutrophils # Man Lymphocytes # (Manual) Monocytes # (Manual) PT INR D-Dimer ABG pH ABG pO2 ABG HCO3 ABG O2 Saturation ABG Base Excess ABG Hemoglobin Oxyhemoglobin Sodium Potassium Chloride Carbon Dioxide BUN Creatinine Glucose POC Glucose 128 H 133 H Lactic Acid Calcium Phosphorus Magnesium AST ALT Alkaline Phosphatase Lactate Dehydrogenase Troponin T C-Reactive Protein NT-Pro-B Natriuret Pep Total Protein Albumin LDL Cholesterol Direct Vitamin B12 Urine WBC (Auto) Fluid Glucose Fluid Total Protein Vancomycin Trough Crossmatch 11/17/21 11/17/21 11/17/21 05:56 11:00 11:55 WBC RBC Hgb 8.3 L Hct 26.9 L MCV MCH MCHC RDW Plt Count Eos % (Auto) Eos # (Auto) Seg Neuts % (Manual) Lymphocytes % (Manual) Seg Neutrophils # Seg Neutrophils # Man Lymphocytes # (Manual) Monocytes # (Manual) PT INR D-Dimer ABG pH ABG pO2 ABG HCO3 ABG O2 Saturation ABG Base Excess ABG Hemoglobin Oxyhemoglobin Sodium 151 H Potassium Chloride 113.6 H Carbon Dioxide BUN 85 H Creatinine Glucose 132 H POC Glucose 121 H Lactic Acid Calcium 7.8 L Phosphorus Magnesium AST ALT Alkaline Phosphatase Lactate Dehydrogenase Troponin T C-Reactive Protein NT-Pro-B Natriuret Pep Total Protein 5.1 L Albumin 2.2 L LDL Cholesterol Direct Vitamin B12 Urine WBC (Auto) Fluid Glucose Fluid Total Protein Vancomycin Trough Crossmatch 11/17/21 11/17/21 11/18/21 18:04 18:55 00:26 WBC RBC Hgb 7.5 L 7.1 L Hct 24.8 L 23.6 L MCV MCH MCHC RDW Plt Count Eos % (Auto) Eos # (Auto) Seg Neuts % (Manual) Lymphocytes % (Manual) Seg Neutrophils # Seg Neutrophils # Man Lymphocytes # (Manual) Monocytes # (Manual) PT INR D-Dimer ABG pH ABG pO2 ABG HCO3 ABG O2 Saturation ABG Base Excess ABG Hemoglobin Oxyhemoglobin Sodium Potassium Chloride Carbon Dioxide BUN Creatinine Glucose POC Glucose 144 H Lactic Acid Calcium Phosphorus Magnesium AST ALT Alkaline Phosphatase Lactate Dehydrogenase Troponin T C-Reactive Protein NT-Pro-B Natriuret Pep Total Protein Albumin LDL Cholesterol Direct Vitamin B12 Urine WBC (Auto) Fluid Glucose Fluid Total Protein Vancomycin Trough Crossmatch 11/18/21 11/18/21 11/18/21 00:43 05:10 05:10 WBC 12.5 H RBC 2.39 L Hgb 6.1 L Hct 20.2 L MCV MCH 25 L MCHC RDW 23.2 H Plt Count Eos % (Auto) Eos # (Auto) Seg Neuts % (Manual) Lymphocytes % (Manual) Seg Neutrophils # Seg Neutrophils # Man Lymphocytes # (Manual) Monocytes # (Manual) PT INR D-Dimer ABG pH ABG pO2 ABG HCO3 ABG O2 Saturation ABG Base Excess ABG Hemoglobin Oxyhemoglobin Sodium 131 L D Potassium 2.9 L* D Chloride 97.8 L Carbon Dioxide BUN 58 H Creatinine Glucose 665 H* POC Glucose 139 H Lactic Acid Calcium 7.0 L Phosphorus 2.20 L D Magnesium 1.50 L AST ALT Alkaline Phosphatase Lactate Dehydrogenase Troponin T C-Reactive Protein NT-Pro-B Natriuret Pep Total Protein Albumin LDL Cholesterol Direct Vitamin B12 Urine WBC (Auto) Fluid Glucose Fluid Total Protein Vancomycin Trough Crossmatch 11/18/21 11/18/21 11/18/21 05:23 07:10 10:45 WBC RBC Hgb Hct MCV MCH MCHC RDW Plt Count Eos % (Auto) Eos # (Auto) Seg Neuts % (Manual) Lymphocytes % (Manual) Seg Neutrophils # Seg Neutrophils # Man Lymphocytes # (Manual) Monocytes # (Manual) PT INR D-Dimer ABG pH ABG pO2 ABG HCO3 ABG O2 Saturation ABG Base Excess ABG Hemoglobin Oxyhemoglobin Sodium 148 H D Potassium 3.1 L Chloride 111.9 H Carbon Dioxide BUN 63 H Creatinine Glucose 141 H POC Glucose 124 H Lactic Acid Calcium 8.1 L D Phosphorus Magnesium AST ALT Alkaline Phosphatase Lactate Dehydrogenase Troponin T C-Reactive Protein NT-Pro-B Natriuret Pep Total Protein Albumin LDL Cholesterol Direct Vitamin B12 Urine WBC (Auto) Fluid Glucose Fluid Total Protein Vancomycin Trough Crossmatch See Detail 11/18/21 11/19/21 11/19/21 11:57 00:19 04:55 WBC RBC 3.35 L Hgb 9.0 L 8.9 L Hct 28.3 L D 28.1 L MCV MCH 27 L MCHC RDW 20.3 H Plt Count Eos % (Auto) Eos # (Auto) Seg Neuts % (Manual) Lymphocytes % (Manual) Seg Neutrophils # Seg Neutrophils # Man Lymphocytes # (Manual) Monocytes # (Manual) PT INR D-Dimer ABG pH ABG pO2 ABG HCO3 ABG O2 Saturation ABG Base Excess ABG Hemoglobin Oxyhemoglobin Sodium Potassium Chloride Carbon Dioxide BUN Creatinine Glucose POC Glucose 119 H Lactic Acid Calcium Phosphorus Magnesium AST ALT Alkaline Phosphatase Lactate Dehydrogenase Troponin T C-Reactive Protein NT-Pro-B Natriuret Pep Total Protein Albumin LDL Cholesterol Direct Vitamin B12 Urine WBC (Auto) Fluid Glucose Fluid Total Protein Vancomycin Trough Crossmatch 11/19/21 11/19/21 11/20/21 04:55 05:42 00:55 WBC RBC Hgb 9.0 L Hct 28.6 L MCV MCH MCHC RDW Plt Count Eos % (Auto) Eos # (Auto) Seg Neuts % (Manual) Lymphocytes % (Manual) Seg Neutrophils # Seg Neutrophils # Man Lymphocytes # (Manual) Monocytes # (Manual) PT INR D-Dimer ABG pH ABG pO2 ABG HCO3 ABG O2 Saturation ABG Base Excess ABG Hemoglobin Oxyhemoglobin Sodium Potassium 3.5 L Chloride 108.6 H Carbon Dioxide BUN 47 H Creatinine Glucose 207 H POC Glucose 63 L Lactic Acid Calcium 7.1 L Phosphorus Magnesium AST ALT Alkaline Phosphatase Lactate Dehydrogenase Troponin T C-Reactive Protein NT-Pro-B Natriuret Pep Total Protein Albumin LDL Cholesterol Direct Vitamin B12 Urine WBC (Auto) Fluid Glucose Fluid Total Protein Vancomycin Trough Crossmatch 11/20/21 11/20/21 11/20/21 05:40 05:40 Unknown WBC RBC 3.40 L Hgb 9.1 L Hct 28.8 L MCV MCH 27 L MCHC RDW 20.7 H Plt Count Eos % (Auto) Eos # (Auto) Seg Neuts % (Manual) Lymphocytes % (Manual) Seg Neutrophils # Seg Neutrophils # Man Lymphocytes # (Manual) Monocytes # (Manual) PT INR D-Dimer ABG pH ABG pO2 ABG HCO3 ABG O2 Saturation ABG Base Excess -2.7 L ABG Hemoglobin 9.5 L Oxyhemoglobin 94.3 L Sodium Potassium 3.5 L Chloride 108.9 H Carbon Dioxide BUN 37 H Creatinine Glucose 117 H POC Glucose Lactic Acid Calcium 7.5 L Phosphorus Magnesium AST ALT Alkaline Phosphatase Lactate Dehydrogenase Troponin T C-Reactive Protein NT-Pro-B Natriuret Pep Total Protein Albumin LDL Cholesterol Direct Vitamin B12 Urine WBC (Auto) Fluid Glucose Fluid Total Protein Vancomycin Trough Crossmatch 11/21/21 11/21/21 11/21/21 04:30 04:30 16:00 WBC RBC 3.25 L Hgb 8.6 L Hct 28.1 L MCV MCH 26 L MCHC RDW 20.7 H Plt Count Eos % (Auto) Eos # (Auto) Seg Neuts % (Manual) Lymphocytes % (Manual) Seg Neutrophils # Seg Neutrophils # Man Lymphocytes # (Manual) Monocytes # (Manual) PT INR D-Dimer ABG pH ABG pO2 114.2 H ABG HCO3 ABG O2 Saturation ABG Base Excess ABG Hemoglobin 9.1 L Oxyhemoglobin Sodium 134 L Potassium Chloride Carbon Dioxide 20 L BUN 34 H Creatinine Glucose POC Glucose Lactic Acid Calcium 7.1 L Phosphorus Magnesium AST ALT Alkaline Phosphatase Lactate Dehydrogenase Troponin T C-Reactive Protein NT-Pro-B Natriuret Pep Total Protein Albumin LDL Cholesterol Direct Vitamin B12 Urine WBC (Auto) Fluid Glucose Fluid Total Protein Vancomycin Trough Crossmatch 11/22/21 11/22/21 11/22/21 07:07 07:07 23:54 WBC RBC 3.30 L Hgb 9.0 L Hct 28.5 L MCV MCH 27 L MCHC RDW 21.0 H Plt Count Eos % (Auto) Eos # (Auto) Seg Neuts % (Manual) Lymphocytes % (Manual) Seg Neutrophils # Seg Neutrophils # Man Lymphocytes # (Manual) Monocytes # (Manual) PT INR D-Dimer ABG pH ABG pO2 ABG HCO3 ABG O2 Saturation ABG Base Excess ABG Hemoglobin Oxyhemoglobin Sodium Potassium Chloride Carbon Dioxide BUN 32 H Creatinine Glucose 106 H POC Glucose 110 H Lactic Acid Calcium 7.5 L Phosphorus Magnesium AST ALT Alkaline Phosphatase Lactate Dehydrogenase Troponin T C-Reactive Protein NT-Pro-B Natriuret Pep Total Protein Albumin LDL Cholesterol Direct Vitamin B12 Urine WBC (Auto) Fluid Glucose Fluid Total Protein Vancomycin Trough Crossmatch 11/23/21 11/23/21 11/23/21 04:38 04:38 06:01 WBC RBC 3.23 L Hgb 8.8 L Hct 28.0 L MCV MCH 27 L MCHC RDW 21.3 H Plt Count Eos % (Auto) Eos # (Auto) Seg Neuts % (Manual) Lymphocytes % (Manual) Seg Neutrophils # Seg Neutrophils # Man Lymphocytes # (Manual) Monocytes # (Manual) PT INR D-Dimer ABG pH ABG pO2 ABG HCO3 ABG O2 Saturation ABG Base Excess ABG Hemoglobin Oxyhemoglobin Sodium 136 L Potassium Chloride Carbon Dioxide 20 L BUN 32 H Creatinine Glucose 109 H POC Glucose 115 H Lactic Acid Calcium 7.7 L Phosphorus Magnesium AST ALT Alkaline Phosphatase Lactate Dehydrogenase Troponin T C-Reactive Protein NT-Pro-B Natriuret Pep Total Protein Albumin LDL Cholesterol Direct Vitamin B12 Urine WBC (Auto) Fluid Glucose Fluid Total Protein Vancomycin Trough Crossmatch 11/23/21 11/24/21 11/24/21 11:40 00:03 04:13 WBC RBC 3.18 L Hgb 8.5 L Hct 27.5 L MCV MCH 27 L MCHC RDW 21.6 H Plt Count Eos % (Auto) Eos # (Auto) Seg Neuts % (Manual) Lymphocytes % (Manual) Seg Neutrophils # Seg Neutrophils # Man Lymphocytes # (Manual) Monocytes # (Manual) PT INR D-Dimer ABG pH ABG pO2 ABG HCO3 ABG O2 Saturation ABG Base Excess ABG Hemoglobin Oxyhemoglobin Sodium Potassium Chloride Carbon Dioxide BUN Creatinine Glucose POC Glucose 117 H 111 H Lactic Acid Calcium Phosphorus Magnesium AST ALT Alkaline Phosphatase Lactate Dehydrogenase Troponin T C-Reactive Protein NT-Pro-B Natriuret Pep Total Protein Albumin LDL Cholesterol Direct Vitamin B12 Urine WBC (Auto) Fluid Glucose Fluid Total Protein Vancomycin Trough Crossmatch 11/24/21 11/24/21 11/24/21 04:13 05:30 11:10 WBC RBC Hgb Hct MCV MCH MCHC RDW Plt Count Eos % (Auto) Eos # (Auto) Seg Neuts % (Manual) Lymphocytes % (Manual) Seg Neutrophils # Seg Neutrophils # Man Lymphocytes # (Manual) Monocytes # (Manual) PT INR D-Dimer ABG pH ABG pO2 ABG HCO3 ABG O2 Saturation ABG Base Excess ABG Hemoglobin Oxyhemoglobin Sodium Potassium Chloride Carbon Dioxide BUN 31 H Creatinine Glucose 101 H POC Glucose 115 H 107 H Lactic Acid Calcium 7.7 L Phosphorus Magnesium AST ALT Alkaline Phosphatase Lactate Dehydrogenase Troponin T C-Reactive Protein NT-Pro-B Natriuret Pep Total Protein Albumin LDL Cholesterol Direct Vitamin B12 Urine WBC (Auto) Fluid Glucose Fluid Total Protein Vancomycin Trough Crossmatch 11/24/21 11/24/21 11/25/21 16:34 17:57 05:12 WBC RBC 3.11 L Hgb 8.2 L Hct 26.6 L MCV MCH 26 L MCHC RDW 21.3 H Plt Count Eos % (Auto) Eos # (Auto) Seg Neuts % (Manual) Lymphocytes % (Manual) Seg Neutrophils # Seg Neutrophils # Man Lymphocytes # (Manual) Monocytes # (Manual) PT INR D-Dimer ABG pH ABG pO2 ABG HCO3 ABG O2 Saturation ABG Base Excess ABG Hemoglobin Oxyhemoglobin Sodium Potassium Chloride Carbon Dioxide BUN Creatinine Glucose POC Glucose 115 H 110 H Lactic Acid Calcium Phosphorus Magnesium AST ALT Alkaline Phosphatase Lactate Dehydrogenase Troponin T C-Reactive Protein NT-Pro-B Natriuret Pep Total Protein Albumin LDL Cholesterol Direct Vitamin B12 Urine WBC (Auto) Fluid Glucose Fluid Total Protein Vancomycin Trough Crossmatch 11/25/21 11/25/21 11/26/21 05:12 11:20 05:00 WBC RBC 3.30 L Hgb 8.8 L Hct 28.2 L MCV MCH 27 L MCHC RDW 20.7 H Plt Count Eos % (Auto) Eos # (Auto) Seg Neuts % (Manual) Lymphocytes % (Manual) Seg Neutrophils # Seg Neutrophils # Man Lymphocytes # (Manual) Monocytes # (Manual) PT INR D-Dimer ABG pH ABG pO2 ABG HCO3 ABG O2 Saturation ABG Base Excess ABG Hemoglobin Oxyhemoglobin Sodium Potassium Chloride Carbon Dioxide BUN 32 H Creatinine Glucose 118 H POC Glucose 118 H Lactic Acid Calcium 8.2 L Phosphorus Magnesium AST ALT Alkaline Phosphatase Lactate Dehydrogenase Troponin T C-Reactive Protein NT-Pro-B Natriuret Pep Total Protein Albumin LDL Cholesterol Direct Vitamin B12 Urine WBC (Auto) Fluid Glucose Fluid Total Protein Vancomycin Trough Crossmatch 11/26/21 11/26/21 11/26/21 05:00 05:00 05:44 WBC RBC Hgb Hct MCV MCH MCHC RDW Plt Count Eos % (Auto) Eos # (Auto) Seg Neuts % (Manual) Lymphocytes % (Manual) Seg Neutrophils # Seg Neutrophils # Man Lymphocytes # (Manual) Monocytes # (Manual) PT 16.9 H INR 1.24 H D-Dimer ABG pH ABG pO2 ABG HCO3 ABG O2 Saturation ABG Base Excess ABG Hemoglobin Oxyhemoglobin Sodium Potassium Chloride Carbon Dioxide BUN 31 H Creatinine Glucose 104 H POC Glucose 110 H Lactic Acid Calcium 7.9 L Phosphorus Magnesium AST ALT Alkaline Phosphatase Lactate Dehydrogenase Troponin T C-Reactive Protein NT-Pro-B Natriuret Pep Total Protein Albumin LDL Cholesterol Direct Vitamin B12 Urine WBC (Auto) Fluid Glucose Fluid Total Protein Vancomycin Trough Crossmatch 11/26/21 11/27/21 11/27/21 23:55 07:40 07:40 WBC RBC 3.18 L Hgb 8.5 L Hct 27.0 L MCV MCH 27 L MCHC RDW 21.2 H Plt Count Eos % (Auto) Eos # (Auto) Seg Neuts % (Manual) Lymphocytes % (Manual) Seg Neutrophils # Seg Neutrophils # Man Lymphocytes # (Manual) Monocytes # (Manual) PT INR D-Dimer ABG pH ABG pO2 ABG HCO3 ABG O2 Saturation ABG Base Excess ABG Hemoglobin Oxyhemoglobin Sodium Potassium Chloride Carbon Dioxide BUN 27 H Creatinine Glucose 112 H POC Glucose 63 L Lactic Acid Calcium 7.6 L Phosphorus Magnesium AST ALT Alkaline Phosphatase Lactate Dehydrogenase Troponin T C-Reactive Protein NT-Pro-B Natriuret Pep Total Protein Albumin LDL Cholesterol Direct Vitamin B12 Urine WBC (Auto) Fluid Glucose Fluid Total Protein Vancomycin Trough Crossmatch 11/27/21 11/27/21 11/27/21 12:04 13:40 13:40 WBC RBC 3.31 L Hgb 8.7 L Hct 28.0 L MCV MCH 26 L MCHC RDW 20.7 H Plt Count Eos % (Auto) Eos # (Auto) Seg Neuts % (Manual) Lymphocytes % (Manual) Seg Neutrophils # Seg Neutrophils # Man Lymphocytes # (Manual) Monocytes # (Manual) PT INR D-Dimer ABG pH ABG pO2 ABG HCO3 ABG O2 Saturation ABG Base Excess ABG Hemoglobin Oxyhemoglobin Sodium 136 L Potassium Chloride Carbon Dioxide BUN 25 H Creatinine Glucose 127 H POC Glucose 109 H Lactic Acid Calcium 7.6 L Phosphorus Magnesium 1.40 L AST ALT Alkaline Phosphatase Lactate Dehydrogenase Troponin T C-Reactive Protein NT-Pro-B Natriuret Pep Total Protein Albumin LDL Cholesterol Direct Vitamin B12 Urine WBC (Auto) Fluid Glucose Fluid Total Protein Vancomycin Trough Crossmatch 11/27/21 11/27/21 11/28/21 17:44 23:33 12:20 WBC RBC Hgb Hct MCV MCH MCHC RDW Plt Count Eos % (Auto) Eos # (Auto) Seg Neuts % (Manual) Lymphocytes % (Manual) Seg Neutrophils # Seg Neutrophils # Man Lymphocytes # (Manual) Monocytes # (Manual) PT INR D-Dimer ABG pH ABG pO2 ABG HCO3 ABG O2 Saturation ABG Base Excess ABG Hemoglobin Oxyhemoglobin Sodium Potassium Chloride Carbon Dioxide BUN Creatinine Glucose POC Glucose 107 H 108 H 114 H Lactic Acid Calcium Phosphorus Magnesium AST ALT Alkaline Phosphatase Lactate Dehydrogenase Troponin T C-Reactive Protein NT-Pro-B Natriuret Pep Total Protein Albumin LDL Cholesterol Direct Vitamin B12 Urine WBC (Auto) Fluid Glucose Fluid Total Protein Vancomycin Trough Crossmatch 11/29/21 11/29/21 11/29/21 00:09 03:20 03:20 WBC RBC 3.05 L Hgb 8.2 L Hct 25.8 L MCV MCH 27 L MCHC RDW 20.9 H Plt Count Eos % (Auto) Eos # (Auto) Seg Neuts % (Manual) Lymphocytes % (Manual) Seg Neutrophils # Seg Neutrophils # Man Lymphocytes # (Manual) Monocytes # (Manual) PT INR D-Dimer ABG pH ABG pO2 ABG HCO3 ABG O2 Saturation ABG Base Excess ABG Hemoglobin Oxyhemoglobin Sodium 133 L Potassium Chloride Carbon Dioxide BUN 24 H Creatinine Glucose 137 H POC Glucose 134 H Lactic Acid Calcium 7.4 L Phosphorus Magnesium AST ALT Alkaline Phosphatase Lactate Dehydrogenase Troponin T C-Reactive Protein NT-Pro-B Natriuret Pep Total Protein Albumin LDL Cholesterol Direct Vitamin B12 Urine WBC (Auto) Fluid Glucose Fluid Total Protein Vancomycin Trough Crossmatch 11/29/21 11/29/21 11/29/21 05:38 11:39 17:11 WBC RBC Hgb Hct MCV MCH MCHC RDW Plt Count Eos % (Auto) Eos # (Auto) Seg Neuts % (Manual) Lymphocytes % (Manual) Seg Neutrophils # Seg Neutrophils # Man Lymphocytes # (Manual) Monocytes # (Manual) PT INR D-Dimer ABG pH ABG pO2 ABG HCO3 ABG O2 Saturation ABG Base Excess ABG Hemoglobin Oxyhemoglobin Sodium Potassium Chloride Carbon Dioxide BUN Creatinine Glucose POC Glucose 117 H 143 H 124 H Lactic Acid Calcium Phosphorus Magnesium AST ALT Alkaline Phosphatase Lactate Dehydrogenase Troponin T C-Reactive Protein NT-Pro-B Natriuret Pep Total Protein Albumin LDL Cholesterol Direct Vitamin B12 Urine WBC (Auto) Fluid Glucose Fluid Total Protein Vancomycin Trough Crossmatch 11/29/21 11/30/21 11/30/21 20:15 05:40 05:40 WBC 12.6 H RBC 3.41 L Hgb 9.1 L Hct 28.9 L MCV MCH 27 L MCHC RDW 20.4 H Plt Count Eos % (Auto) Eos # (Auto) Seg Neuts % (Manual) Lymphocytes % (Manual) Seg Neutrophils # Seg Neutrophils # Man Lymphocytes # (Manual) Monocytes # (Manual) PT INR D-Dimer ABG pH ABG pO2 ABG HCO3 ABG O2 Saturation ABG Base Excess ABG Hemoglobin Oxyhemoglobin Sodium Potassium Chloride Carbon Dioxide BUN 24 H Creatinine Glucose 131 H POC Glucose Lactic Acid Calcium 7.6 L Phosphorus Magnesium AST ALT Alkaline Phosphatase Lactate Dehydrogenase Troponin T 0.045 H C-Reactive Protein NT-Pro-B Natriuret Pep Total Protein Albumin LDL Cholesterol Direct 25 L Vitamin B12 Urine WBC (Auto) Fluid Glucose Fluid Total Protein Vancomycin Trough Crossmatch 11/30/21 11/30/21 12/01/21 11:29 16:51 05:00 WBC RBC 2.97 L Hgb 8.0 L Hct 25.0 L MCV MCH 27 L MCHC RDW 20.8 H Plt Count Eos % (Auto) Eos # (Auto) Seg Neuts % (Manual) Lymphocytes % (Manual) Seg Neutrophils # Seg Neutrophils # Man Lymphocytes # (Manual) Monocytes # (Manual) PT INR D-Dimer ABG pH ABG pO2 ABG HCO3 ABG O2 Saturation ABG Base Excess ABG Hemoglobin Oxyhemoglobin Sodium Potassium Chloride Carbon Dioxide BUN Creatinine Glucose POC Glucose 123 H 114 H Lactic Acid Calcium Phosphorus Magnesium AST ALT Alkaline Phosphatase Lactate Dehydrogenase Troponin T C-Reactive Protein NT-Pro-B Natriuret Pep Total Protein Albumin LDL Cholesterol Direct Vitamin B12 Urine WBC (Auto) Fluid Glucose Fluid Total Protein Vancomycin Trough Crossmatch 12/01/21 12/01/21 12/01/21 05:00 05:25 11:54 WBC RBC Hgb Hct MCV MCH MCHC RDW Plt Count Eos % (Auto) Eos # (Auto) Seg Neuts % (Manual) Lymphocytes % (Manual) Seg Neutrophils # Seg Neutrophils # Man Lymphocytes # (Manual) Monocytes # (Manual) PT INR D-Dimer ABG pH ABG pO2 ABG HCO3 ABG O2 Saturation ABG Base Excess ABG Hemoglobin Oxyhemoglobin Sodium 136 L Potassium Chloride Carbon Dioxide BUN 24 H Creatinine Glucose 117 H POC Glucose 108 H 107 H Lactic Acid Calcium 7.5 L Phosphorus Magnesium 1.60 L AST ALT Alkaline Phosphatase Lactate Dehydrogenase Troponin T C-Reactive Protein NT-Pro-B Natriuret Pep Total Protein Albumin LDL Cholesterol Direct Vitamin B12 Urine WBC (Auto) Fluid Glucose Fluid Total Protein Vancomycin Trough Crossmatch 12/01/21 12/02/21 12/02/21 17:40 00:07 04:20 WBC RBC 2.92 L Hgb 7.7 L Hct 24.3 L MCV MCH 26 L MCHC RDW 20.5 H Plt Count Eos % (Auto) Eos # (Auto) Seg Neuts % (Manual) Lymphocytes % (Manual) Seg Neutrophils # Seg Neutrophils # Man Lymphocytes # (Manual) Monocytes # (Manual) PT INR D-Dimer ABG pH ABG pO2 ABG HCO3 ABG O2 Saturation ABG Base Excess ABG Hemoglobin Oxyhemoglobin Sodium Potassium Chloride Carbon Dioxide BUN Creatinine Glucose POC Glucose 123 H 110 H Lactic Acid Calcium Phosphorus Magnesium AST ALT Alkaline Phosphatase Lactate Dehydrogenase Troponin T C-Reactive Protein NT-Pro-B Natriuret Pep Total Protein Albumin LDL Cholesterol Direct Vitamin B12 Urine WBC (Auto) Fluid Glucose Fluid Total Protein Vancomycin Trough Crossmatch 12/02/21 12/02/21 12/02/21 04:20 11:17 18:20 WBC RBC Hgb Hct MCV MCH MCHC RDW Plt Count Eos % (Auto) Eos # (Auto) Seg Neuts % (Manual) Lymphocytes % (Manual) Seg Neutrophils # Seg Neutrophils # Man Lymphocytes # (Manual) Monocytes # (Manual) PT INR D-Dimer ABG pH ABG pO2 ABG HCO3 ABG O2 Saturation ABG Base Excess ABG Hemoglobin Oxyhemoglobin Sodium 135 L Potassium Chloride Carbon Dioxide BUN 26 H Creatinine Glucose 121 H POC Glucose 117 H 113 H Lactic Acid Calcium 7.4 L Phosphorus Magnesium AST ALT Alkaline Phosphatase Lactate Dehydrogenase Troponin T C-Reactive Protein NT-Pro-B Natriuret Pep Total Protein Albumin LDL Cholesterol Direct Vitamin B12 Urine WBC (Auto) Fluid Glucose Fluid Total Protein Vancomycin Trough Crossmatch 12/03/21 12/03/21 12/03/21 00:12 04:00 04:00 WBC RBC 2.99 L Hgb 7.8 L Hct 24.6 L MCV MCH 26 L MCHC RDW 20.2 H Plt Count Eos % (Auto) Eos # (Auto) Seg Neuts % (Manual) Lymphocytes % (Manual) Seg Neutrophils # Seg Neutrophils # Man Lymphocytes # (Manual) Monocytes # (Manual) PT INR D-Dimer ABG pH ABG pO2 ABG HCO3 ABG O2 Saturation ABG Base Excess ABG Hemoglobin Oxyhemoglobin Sodium 136 L Potassium Chloride Carbon Dioxide BUN 27 H Creatinine Glucose 133 H POC Glucose 121 H Lactic Acid Calcium 7.5 L Phosphorus Magnesium AST ALT Alkaline Phosphatase Lactate Dehydrogenase Troponin T C-Reactive Protein NT-Pro-B Natriuret Pep Total Protein Albumin LDL Cholesterol Direct Vitamin B12 Urine WBC (Auto) Fluid Glucose Fluid Total Protein Vancomycin Trough Crossmatch 12/03/21 12/03/21 12/03/21 06:30 11:13 16:00 WBC RBC Hgb Hct MCV MCH MCHC RDW Plt Count Eos % (Auto) Eos # (Auto) Seg Neuts % (Manual) Lymphocytes % (Manual) Seg Neutrophils # Seg Neutrophils # Man Lymphocytes # (Manual) Monocytes # (Manual) PT INR D-Dimer ABG pH ABG pO2 ABG HCO3 ABG O2 Saturation ABG Base Excess ABG Hemoglobin Oxyhemoglobin Sodium Potassium Chloride Carbon Dioxide BUN Creatinine Glucose POC Glucose 129 H 125 H 125 H Lactic Acid Calcium Phosphorus Magnesium AST ALT Alkaline Phosphatase Lactate Dehydrogenase Troponin T C-Reactive Protein NT-Pro-B Natriuret Pep Total Protein Albumin LDL Cholesterol Direct Vitamin B12 Urine WBC (Auto) Fluid Glucose Fluid Total Protein Vancomycin Trough Crossmatch 12/03/21 12/04/21 12/04/21 23:32 04:00 05:36 WBC RBC Hgb Hct MCV MCH MCHC RDW Plt Count Eos % (Auto) Eos # (Auto) Seg Neuts % (Manual) Lymphocytes % (Manual) Seg Neutrophils # Seg Neutrophils # Man Lymphocytes # (Manual) Monocytes # (Manual) PT INR D-Dimer ABG pH ABG pO2 ABG HCO3 ABG O2 Saturation ABG Base Excess ABG Hemoglobin Oxyhemoglobin Sodium Potassium 3.5 L Chloride Carbon Dioxide BUN 26 H Creatinine 0.5 L Glucose 151 H POC Glucose 133 H 142 H Lactic Acid Calcium 8.3 L Phosphorus Magnesium AST ALT Alkaline Phosphatase Lactate Dehydrogenase Troponin T C-Reactive Protein NT-Pro-B Natriuret Pep Total Protein Albumin LDL Cholesterol Direct Vitamin B12 Urine WBC (Auto) Fluid Glucose Fluid Total Protein Vancomycin Trough Crossmatch 12/04/21 12/04/21 12/05/21 11:24 15:58 04:36 WBC RBC Hgb Hct MCV MCH MCHC RDW Plt Count Eos % (Auto) Eos # (Auto) Seg Neuts % (Manual) Lymphocytes % (Manual) Seg Neutrophils # Seg Neutrophils # Man Lymphocytes # (Manual) Monocytes # (Manual) PT INR D-Dimer ABG pH ABG pO2 ABG HCO3 ABG O2 Saturation ABG Base Excess ABG Hemoglobin Oxyhemoglobin Sodium Potassium Chloride Carbon Dioxide BUN 21 H Creatinine 0.5 L Glucose 119 H POC Glucose 130 H 111 H Lactic Acid Calcium 8.3 L Phosphorus Magnesium AST ALT Alkaline Phosphatase Lactate Dehydrogenase Troponin T C-Reactive Protein NT-Pro-B Natriuret Pep Total Protein Albumin LDL Cholesterol Direct Vitamin B12 Urine WBC (Auto) Fluid Glucose Fluid Total Protein Vancomycin Trough Crossmatch 12/05/21 12/05/21 12/05/21 05:15 10:40 11:12 WBC RBC 2.98 L Hgb 8.1 L Hct 24.6 L MCV MCH 27 L MCHC RDW 20.8 H Plt Count Eos % (Auto) Eos # (Auto) Seg Neuts % (Manual) Lymphocytes % (Manual) Seg Neutrophils # Seg Neutrophils # Man Lymphocytes # (Manual) Monocytes # (Manual) PT INR D-Dimer ABG pH ABG pO2 ABG HCO3 ABG O2 Saturation ABG Base Excess ABG Hemoglobin Oxyhemoglobin Sodium Potassium Chloride Carbon Dioxide BUN Creatinine Glucose POC Glucose 107 H 110 H Lactic Acid Calcium Phosphorus Magnesium AST ALT Alkaline Phosphatase Lactate Dehydrogenase Troponin T C-Reactive Protein NT-Pro-B Natriuret Pep Total Protein Albumin LDL Cholesterol Direct Vitamin B12 Urine WBC (Auto) Fluid Glucose Fluid Total Protein Vancomycin Trough Crossmatch 12/05/21 12/06/21 12/06/21 23:39 04:25 04:25 WBC RBC 2.95 L Hgb 7.9 L Hct 24.7 L MCV MCH 27 L MCHC RDW 20.9 H Plt Count Eos % (Auto) Eos # (Auto) Seg Neuts % (Manual) Lymphocytes % (Manual) Seg Neutrophils # Seg Neutrophils # Man Lymphocytes # (Manual) Monocytes # (Manual) PT INR D-Dimer ABG pH ABG pO2 ABG HCO3 ABG O2 Saturation ABG Base Excess ABG Hemoglobin Oxyhemoglobin Sodium Potassium Chloride Carbon Dioxide BUN 22 H Creatinine 0.5 L Glucose 136 H POC Glucose 118 H Lactic Acid Calcium 8.2 L Phosphorus Magnesium AST ALT Alkaline Phosphatase Lactate Dehydrogenase Troponin T C-Reactive Protein NT-Pro-B Natriuret Pep Total Protein Albumin LDL Cholesterol Direct Vitamin B12 Urine WBC (Auto) Fluid Glucose Fluid Total Protein Vancomycin Trough Crossmatch 12/06/21 12/06/21 12/07/21 05:28 11:27 04:00 WBC RBC Hgb 7.2 L Hct 21.8 L MCV MCH MCHC RDW Plt Count Eos % (Auto) Eos # (Auto) Seg Neuts % (Manual) Lymphocytes % (Manual) Seg Neutrophils # Seg Neutrophils # Man Lymphocytes # (Manual) Monocytes # (Manual) PT INR D-Dimer ABG pH ABG pO2 ABG HCO3 ABG O2 Saturation ABG Base Excess ABG Hemoglobin Oxyhemoglobin Sodium Potassium Chloride Carbon Dioxide BUN Creatinine Glucose POC Glucose 142 H 126 H Lactic Acid Calcium Phosphorus Magnesium AST ALT Alkaline Phosphatase Lactate Dehydrogenase Troponin T C-Reactive Protein NT-Pro-B Natriuret Pep Total Protein Albumin LDL Cholesterol Direct Vitamin B12 Urine WBC (Auto) Fluid Glucose Fluid Total Protein Vancomycin Trough Crossmatch 12/07/21 12/07/21 12/07/21 04:00 05:30 11:12 WBC RBC Hgb Hct MCV MCH MCHC RDW Plt Count Eos % (Auto) Eos # (Auto) Seg Neuts % (Manual) Lymphocytes % (Manual) Seg Neutrophils # Seg Neutrophils # Man Lymphocytes # (Manual) Monocytes # (Manual) PT INR D-Dimer ABG pH ABG pO2 ABG HCO3 ABG O2 Saturation ABG Base Excess ABG Hemoglobin Oxyhemoglobin Sodium Potassium Chloride Carbon Dioxide BUN 22 H Creatinine Glucose 119 H POC Glucose 121 H 124 H Lactic Acid Calcium 8.0 L Phosphorus Magnesium AST ALT Alkaline Phosphatase Lactate Dehydrogenase Troponin T C-Reactive Protein NT-Pro-B Natriuret Pep Total Protein Albumin LDL Cholesterol Direct Vitamin B12 Urine WBC (Auto) Fluid Glucose Fluid Total Protein Vancomycin Trough Crossmatch 12/08/21 12/08/21 12/08/21 04:00 04:00 05:39 WBC RBC 2.81 L Hgb 7.7 L Hct 23.5 L MCV MCH MCHC RDW 21.2 H Plt Count Eos % (Auto) Eos # (Auto) Seg Neuts % (Manual) Lymphocytes % (Manual) Seg Neutrophils # Seg Neutrophils # Man Lymphocytes # (Manual) Monocytes # (Manual) PT INR D-Dimer ABG pH ABG pO2 ABG HCO3 ABG O2 Saturation ABG Base Excess ABG Hemoglobin Oxyhemoglobin Sodium 135 L Potassium Chloride Carbon Dioxide BUN 23 H Creatinine Glucose 109 H POC Glucose 112 H Lactic Acid Calcium Phosphorus Magnesium AST ALT Alkaline Phosphatase Lactate Dehydrogenase Troponin T C-Reactive Protein NT-Pro-B Natriuret Pep Total Protein Albumin LDL Cholesterol Direct Vitamin B12 Urine WBC (Auto) Fluid Glucose Fluid Total Protein Vancomycin Trough Crossmatch 12/08/21 12/09/21 12/09/21 11:03 04:20 04:20 WBC RBC 2.67 L Hgb 7.6 L Hct 22.1 L MCV MCH MCHC RDW 20.8 H Plt Count Eos % (Auto) Eos # (Auto) Seg Neuts % (Manual) Lymphocytes % (Manual) Seg Neutrophils # Seg Neutrophils # Man Lymphocytes # (Manual) Monocytes # (Manual) PT INR D-Dimer ABG pH ABG pO2 ABG HCO3 ABG O2 Saturation ABG Base Excess ABG Hemoglobin Oxyhemoglobin Sodium 135 L Potassium Chloride 97.8 L Carbon Dioxide BUN 26 H Creatinine Glucose 119 H POC Glucose 108 H Lactic Acid Calcium 7.7 L Phosphorus Magnesium AST ALT Alkaline Phosphatase Lactate Dehydrogenase Troponin T C-Reactive Protein NT-Pro-B Natriuret Pep Total Protein Albumin LDL Cholesterol Direct Vitamin B12 Urine WBC (Auto) Fluid Glucose Fluid Total Protein Vancomycin Trough Crossmatch 12/09/21 12/10/21 12/10/21 11:26 04:33 11:12 WBC RBC Hgb Hct MCV MCH MCHC RDW Plt Count Eos % (Auto) Eos # (Auto) Seg Neuts % (Manual) Lymphocytes % (Manual) Seg Neutrophils # Seg Neutrophils # Man Lymphocytes # (Manual) Monocytes # (Manual) PT INR D-Dimer ABG pH ABG pO2 ABG HCO3 ABG O2 Saturation ABG Base Excess ABG Hemoglobin Oxyhemoglobin Sodium 136 L Potassium Chloride Carbon Dioxide BUN 27 H Creatinine Glucose 117 H POC Glucose 110 H 117 H Lactic Acid Calcium 8.2 L Phosphorus Magnesium AST ALT Alkaline Phosphatase Lactate Dehydrogenase Troponin T C-Reactive Protein NT-Pro-B Natriuret Pep Total Protein Albumin LDL Cholesterol Direct Vitamin B12 Urine WBC (Auto) Fluid Glucose Fluid Total Protein Vancomycin Trough Crossmatch 12/10/21 12/10/21 12/11/21 16:02 23:31 04:35 WBC RBC 2.57 L Hgb 7.0 L Hct 21.4 L MCV MCH 27 L MCHC RDW 21.1 H Plt Count Eos % (Auto) Eos # (Auto) Seg Neuts % (Manual) Lymphocytes % (Manual) Seg Neutrophils # Seg Neutrophils # Man Lymphocytes # (Manual) Monocytes # (Manual) PT INR D-Dimer ABG pH ABG pO2 ABG HCO3 ABG O2 Saturation ABG Base Excess ABG Hemoglobin Oxyhemoglobin Sodium Potassium Chloride Carbon Dioxide BUN Creatinine Glucose POC Glucose 137 H 111 H Lactic Acid Calcium Phosphorus Magnesium AST ALT Alkaline Phosphatase Lactate Dehydrogenase Troponin T C-Reactive Protein NT-Pro-B Natriuret Pep Total Protein Albumin LDL Cholesterol Direct Vitamin B12 Urine WBC (Auto) Fluid Glucose Fluid Total Protein Vancomycin Trough Crossmatch 12/11/21 12/11/21 12/11/21 04:35 12:46 16:07 WBC RBC Hgb Hct MCV MCH MCHC RDW Plt Count Eos % (Auto) Eos # (Auto) Seg Neuts % (Manual) Lymphocytes % (Manual) Seg Neutrophils # Seg Neutrophils # Man Lymphocytes # (Manual) Monocytes # (Manual) PT INR D-Dimer ABG pH ABG pO2 ABG HCO3 ABG O2 Saturation ABG Base Excess ABG Hemoglobin Oxyhemoglobin Sodium 136 L Potassium Chloride Carbon Dioxide BUN 27 H Creatinine Glucose 112 H POC Glucose 115 H 111 H Lactic Acid Calcium 7.6 L Phosphorus Magnesium AST ALT Alkaline Phosphatase Lactate Dehydrogenase Troponin T C-Reactive Protein NT-Pro-B Natriuret Pep Total Protein Albumin LDL Cholesterol Direct Vitamin B12 Urine WBC (Auto) Fluid Glucose Fluid Total Protein Vancomycin Trough Crossmatch 12/11/21 12/12/21 12/12/21 23:42 04:30 04:30 WBC RBC 2.60 L Hgb 7.1 L Hct 21.5 L MCV MCH 27 L MCHC RDW 20.3 H Plt Count Eos % (Auto) Eos # (Auto) Seg Neuts % (Manual) Lymphocytes % (Manual) Seg Neutrophils # Seg Neutrophils # Man Lymphocytes # (Manual) Monocytes # (Manual) PT INR D-Dimer ABG pH ABG pO2 ABG HCO3 ABG O2 Saturation ABG Base Excess ABG Hemoglobin Oxyhemoglobin Sodium 135 L Potassium Chloride 97.9 L Carbon Dioxide BUN 26 H Creatinine 0.5 L Glucose 138 H POC Glucose 115 H Lactic Acid Calcium 8.2 L Phosphorus Magnesium AST ALT Alkaline Phosphatase Lactate Dehydrogenase Troponin T C-Reactive Protein NT-Pro-B Natriuret Pep Total Protein Albumin LDL Cholesterol Direct Vitamin B12 Urine WBC (Auto) Fluid Glucose Fluid Total Protein Vancomycin Trough Crossmatch 12/12/21 12/12/21 12/12/21 04:30 05:10 11:51 WBC RBC Hgb Hct MCV MCH MCHC RDW Plt Count Eos % (Auto) Eos # (Auto) Seg Neuts % (Manual) Lymphocytes % (Manual) Seg Neutrophils # Seg Neutrophils # Man Lymphocytes # (Manual) Monocytes # (Manual) PT INR D-Dimer ABG pH ABG pO2 ABG HCO3 ABG O2 Saturation ABG Base Excess ABG Hemoglobin Oxyhemoglobin Sodium Potassium Chloride Carbon Dioxide BUN Creatinine Glucose POC Glucose 119 H 119 H Lactic Acid Calcium Phosphorus Magnesium AST ALT Alkaline Phosphatase Lactate Dehydrogenase Troponin T C-Reactive Protein NT-Pro-B Natriuret Pep Total Protein Albumin LDL Cholesterol Direct Vitamin B12 Urine WBC (Auto) Fluid Glucose Fluid Total Protein Vancomycin Trough Crossmatch See Detail 12/13/21 12/13/21 12/13/21 00:52 04:00 04:00 WBC RBC 2.73 L Hgb 7.4 L Hct 22.8 L MCV MCH 27 L MCHC RDW 20.5 H Plt Count Eos % (Auto) Eos # (Auto) Seg Neuts % (Manual) Lymphocytes % (Manual) Seg Neutrophils # Seg Neutrophils # Man Lymphocytes # (Manual) Monocytes # (Manual) PT INR D-Dimer ABG pH ABG pO2 ABG HCO3 ABG O2 Saturation ABG Base Excess ABG Hemoglobin Oxyhemoglobin Sodium 134 L Potassium Chloride 96.7 L Carbon Dioxide BUN 23 H Creatinine 0.5 L Glucose 131 H POC Glucose 131 H Lactic Acid Calcium 8.1 L Phosphorus Magnesium AST ALT Alkaline Phosphatase Lactate Dehydrogenase Troponin T C-Reactive Protein NT-Pro-B Natriuret Pep Total Protein Albumin LDL Cholesterol Direct Vitamin B12 Urine WBC (Auto) Fluid Glucose Fluid Total Protein Vancomycin Trough Crossmatch 12/13/21 12/13/21 12/13/21 05:23 12:11 17:18 WBC RBC Hgb Hct MCV MCH MCHC RDW Plt Count Eos % (Auto) Eos # (Auto) Seg Neuts % (Manual) Lymphocytes % (Manual) Seg Neutrophils # Seg Neutrophils # Man Lymphocytes # (Manual) Monocytes # (Manual) PT INR D-Dimer ABG pH ABG pO2 ABG HCO3 ABG O2 Saturation ABG Base Excess ABG Hemoglobin Oxyhemoglobin Sodium Potassium Chloride Carbon Dioxide BUN Creatinine Glucose POC Glucose 121 H 143 H 148 H Lactic Acid Calcium Phosphorus Magnesium AST ALT Alkaline Phosphatase Lactate Dehydrogenase Troponin T C-Reactive Protein NT-Pro-B Natriuret Pep Total Protein Albumin LDL Cholesterol Direct Vitamin B12 Urine WBC (Auto) Fluid Glucose Fluid Total Protein Vancomycin Trough Crossmatch 12/14/21 12/14/21 12/14/21 00:54 04:20 04:20 WBC RBC 2.39 L Hgb 6.5 L Hct 20.3 L MCV MCH 27 L MCHC RDW 20.3 H Plt Count Eos % (Auto) Eos # (Auto) Seg Neuts % (Manual) Lymphocytes % (Manual) Seg Neutrophils # Seg Neutrophils # Man Lymphocytes # (Manual) Monocytes # (Manual) PT INR D-Dimer ABG pH ABG pO2 ABG HCO3 ABG O2 Saturation ABG Base Excess ABG Hemoglobin Oxyhemoglobin Sodium 130 L Potassium Chloride 93.5 L Carbon Dioxide BUN 25 H Creatinine Glucose 123 H POC Glucose 123 H Lactic Acid Calcium 8.0 L Phosphorus Magnesium AST ALT Alkaline Phosphatase Lactate Dehydrogenase Troponin T C-Reactive Protein NT-Pro-B Natriuret Pep Total Protein Albumin LDL Cholesterol Direct Vitamin B12 Urine WBC (Auto) Fluid Glucose Fluid Total Protein Vancomycin Trough Crossmatch 12/14/21 12/14/21 12/14/21 05:06 08:17 10:30 WBC RBC Hgb Hct MCV MCH MCHC RDW Plt Count Eos % (Auto) Eos # (Auto) Seg Neuts % (Manual) Lymphocytes % (Manual) Seg Neutrophils # Seg Neutrophils # Man Lymphocytes # (Manual) Monocytes # (Manual) PT INR D-Dimer ABG pH ABG pO2 ABG HCO3 ABG O2 Saturation ABG Base Excess ABG Hemoglobin Oxyhemoglobin Sodium Potassium Chloride Carbon Dioxide BUN Creatinine Glucose POC Glucose 131 H 119 H Lactic Acid Calcium Phosphorus Magnesium AST ALT Alkaline Phosphatase Lactate Dehydrogenase Troponin T C-Reactive Protein NT-Pro-B Natriuret Pep Total Protein Albumin LDL Cholesterol Direct Vitamin B12 Urine WBC (Auto) Fluid Glucose Fluid Total Protein Vancomycin Trough Crossmatch See Detail 12/14/21 12/14/21 12/14/21 12:15 16:37 23:27 WBC RBC Hgb Hct MCV MCH MCHC RDW Plt Count Eos % (Auto) Eos # (Auto) Seg Neuts % (Manual) Lymphocytes % (Manual) Seg Neutrophils # Seg Neutrophils # Man Lymphocytes # (Manual) Monocytes # (Manual) PT INR D-Dimer ABG pH ABG pO2 ABG HCO3 ABG O2 Saturation ABG Base Excess ABG Hemoglobin Oxyhemoglobin Sodium Potassium Chloride Carbon Dioxide BUN Creatinine Glucose POC Glucose 147 H 141 H 130 H Lactic Acid Calcium Phosphorus Magnesium AST ALT Alkaline Phosphatase Lactate Dehydrogenase Troponin T C-Reactive Protein NT-Pro-B Natriuret Pep Total Protein Albumin LDL Cholesterol Direct Vitamin B12 Urine WBC (Auto) Fluid Glucose Fluid Total Protein Vancomycin Trough Crossmatch 12/15/21 12/15/21 12/15/21 05:00 07:00 07:00 WBC 12.3 H RBC 3.27 L Hgb 8.8 L Hct 27.5 L D MCV MCH 27 L MCHC RDW 19.0 H Plt Count Eos % (Auto) Eos # (Auto) Seg Neuts % (Manual) Lymphocytes % (Manual) Seg Neutrophils # Seg Neutrophils # Man Lymphocytes # (Manual) Monocytes # (Manual) PT INR D-Dimer ABG pH ABG pO2 ABG HCO3 ABG O2 Saturation ABG Base Excess ABG Hemoglobin Oxyhemoglobin Sodium 134 L Potassium Chloride 95.7 L Carbon Dioxide BUN 28 H Creatinine Glucose 129 H POC Glucose 129 H Lactic Acid Calcium 8.2 L Phosphorus Magnesium AST ALT Alkaline Phosphatase Lactate Dehydrogenase Troponin T C-Reactive Protein NT-Pro-B Natriuret Pep Total Protein Albumin LDL Cholesterol Direct Vitamin B12 Urine WBC (Auto) Fluid Glucose Fluid Total Protein Vancomycin Trough Crossmatch 12/15/21 12/15/21 12/15/21 11:18 16:00 23:39 WBC RBC Hgb Hct MCV MCH MCHC RDW Plt Count Eos % (Auto) Eos # (Auto) Seg Neuts % (Manual) Lymphocytes % (Manual) Seg Neutrophils # Seg Neutrophils # Man Lymphocytes # (Manual) Monocytes # (Manual) PT INR D-Dimer ABG pH ABG pO2 ABG HCO3 ABG O2 Saturation ABG Base Excess ABG Hemoglobin Oxyhemoglobin Sodium Potassium Chloride Carbon Dioxide BUN Creatinine Glucose POC Glucose 139 H 137 H 146 H Lactic Acid Calcium Phosphorus Magnesium AST ALT Alkaline Phosphatase Lactate Dehydrogenase Troponin T C-Reactive Protein NT-Pro-B Natriuret Pep Total Protein Albumin LDL Cholesterol Direct Vitamin B12 Urine WBC (Auto) Fluid Glucose Fluid Total Protein Vancomycin Trough Crossmatch 12/16/21 12/16/21 12/16/21 05:24 10:21 10:21 WBC 15.3 H RBC 3.24 L Hgb 8.9 L Hct 27.7 L MCV MCH MCHC RDW 19.0 H Plt Count Eos % (Auto) Eos # (Auto) Seg Neuts % (Manual) Lymphocytes % (Manual) Seg Neutrophils # Seg Neutrophils # Man Lymphocytes # (Manual) Monocytes # (Manual) PT INR D-Dimer ABG pH ABG pO2 ABG HCO3 ABG O2 Saturation ABG Base Excess ABG Hemoglobin Oxyhemoglobin Sodium 131 L Potassium 3.5 L Chloride 92.7 L Carbon Dioxide BUN 36 H Creatinine Glucose 160 H POC Glucose 121 H Lactic Acid Calcium Phosphorus Magnesium 1.60 L AST ALT Alkaline Phosphatase Lactate Dehydrogenase Troponin T C-Reactive Protein NT-Pro-B Natriuret Pep Total Protein Albumin LDL Cholesterol Direct Vitamin B12 Urine WBC (Auto) Fluid Glucose Fluid Total Protein Vancomycin Trough Crossmatch 12/16/21 12/16/21 12/16/21 11:21 18:28 20:52 WBC RBC Hgb Hct MCV MCH MCHC RDW Plt Count Eos % (Auto) Eos # (Auto) Seg Neuts % (Manual) Lymphocytes % (Manual) Seg Neutrophils # Seg Neutrophils # Man Lymphocytes # (Manual) Monocytes # (Manual) PT INR D-Dimer ABG pH 7.479 H ABG pO2 79.3 L ABG HCO3 27.3 H ABG O2 Saturation ABG Base Excess 3.6 H ABG Hemoglobin 9.1 L Oxyhemoglobin 94.9 L Sodium Potassium Chloride Carbon Dioxide BUN Creatinine Glucose POC Glucose 153 H 132 H Lactic Acid Calcium Phosphorus Magnesium AST ALT Alkaline Phosphatase Lactate Dehydrogenase Troponin T C-Reactive Protein NT-Pro-B Natriuret Pep Total Protein Albumin LDL Cholesterol Direct Vitamin B12 Urine WBC (Auto) Fluid Glucose Fluid Total Protein Vancomycin Trough Crossmatch 12/16/21 12/17/21 12/17/21 23:30 04:25 04:25 WBC 12.3 H RBC 2.16 L Hgb 6.0 L Hct 18.1 L* D MCV MCH MCHC RDW 19.4 H Plt Count Eos % (Auto) Eos # (Auto) Seg Neuts % (Manual) Lymphocytes % (Manual) Seg Neutrophils # Seg Neutrophils # Man Lymphocytes # (Manual) Monocytes # (Manual) PT INR D-Dimer ABG pH ABG pO2 ABG HCO3 ABG O2 Saturation ABG Base Excess ABG Hemoglobin Oxyhemoglobin Sodium 132 L Potassium 3.2 L Chloride 112.0 H Carbon Dioxide BUN 32 H Creatinine Glucose 122 H POC Glucose 137 H Lactic Acid Calcium 6.8 L D Phosphorus Magnesium AST ALT Alkaline Phosphatase Lactate Dehydrogenase Troponin T C-Reactive Protein NT-Pro-B Natriuret Pep Total Protein Albumin LDL Cholesterol Direct Vitamin B12 Urine WBC (Auto) Fluid Glucose Fluid Total Protein Vancomycin Trough Crossmatch 12/17/21 12/17/21 12/17/21 05:30 11:49 14:45 WBC RBC Hgb 9.7 L D Hct MCV MCH MCHC RDW Plt Count Eos % (Auto) Eos # (Auto) Seg Neuts % (Manual) Lymphocytes % (Manual) Seg Neutrophils # Seg Neutrophils # Man Lymphocytes # (Manual) Monocytes # (Manual) PT INR D-Dimer ABG pH ABG pO2 ABG HCO3 ABG O2 Saturation ABG Base Excess ABG Hemoglobin Oxyhemoglobin Sodium Potassium Chloride Carbon Dioxide BUN Creatinine Glucose POC Glucose 137 H 143 H Lactic Acid Calcium Phosphorus Magnesium AST ALT Alkaline Phosphatase Lactate Dehydrogenase Troponin T C-Reactive Protein NT-Pro-B Natriuret Pep Total Protein Albumin LDL Cholesterol Direct Vitamin B12 Urine WBC (Auto) Fluid Glucose Fluid Total Protein Vancomycin Trough Crossmatch 12/17/21 12/18/21 12/18/21 17:01 05:04 05:04 WBC 13.8 H RBC 3.44 L Hgb 9.9 L Hct 28.8 L MCV MCH MCHC RDW 18.1 H Plt Count Eos % (Auto) Eos # (Auto) Seg Neuts % (Manual) Lymphocytes % (Manual) Seg Neutrophils # Seg Neutrophils # Man Lymphocytes # (Manual) Monocytes # (Manual) PT INR D-Dimer ABG pH ABG pO2 ABG HCO3 ABG O2 Saturation ABG Base Excess ABG Hemoglobin Oxyhemoglobin Sodium 132 L Potassium Chloride 97.4 L Carbon Dioxide BUN 38 H Creatinine Glucose 134 H POC Glucose 132 H Lactic Acid Calcium Phosphorus Magnesium AST ALT Alkaline Phosphatase Lactate Dehydrogenase Troponin T C-Reactive Protein NT-Pro-B Natriuret Pep Total Protein Albumin LDL Cholesterol Direct Vitamin B12 Urine WBC (Auto) Fluid Glucose Fluid Total Protein Vancomycin Trough Crossmatch 12/18/21 12/18/21 12/18/21 05:28 10:57 16:27 WBC RBC Hgb Hct MCV MCH MCHC RDW Plt Count Eos % (Auto) Eos # (Auto) Seg Neuts % (Manual) Lymphocytes % (Manual) Seg Neutrophils # Seg Neutrophils # Man Lymphocytes # (Manual) Monocytes # (Manual) PT INR D-Dimer ABG pH ABG pO2 ABG HCO3 ABG O2 Saturation ABG Base Excess ABG Hemoglobin Oxyhemoglobin Sodium Potassium Chloride Carbon Dioxide BUN Creatinine Glucose POC Glucose 118 H 132 H 130 H Lactic Acid Calcium Phosphorus Magnesium AST ALT Alkaline Phosphatase Lactate Dehydrogenase Troponin T C-Reactive Protein NT-Pro-B Natriuret Pep Total Protein Albumin LDL Cholesterol Direct Vitamin B12 Urine WBC (Auto) Fluid Glucose Fluid Total Protein Vancomycin Trough Crossmatch 12/19/21 12/19/21 12/19/21 00:02 04:41 04:41 WBC 16.0 H RBC 3.45 L Hgb 9.7 L Hct 29.1 L MCV MCH MCHC RDW 17.8 H Plt Count Eos % (Auto) Eos # (Auto) Seg Neuts % (Manual) Lymphocytes % (Manual) Seg Neutrophils # Seg Neutrophils # Man Lymphocytes # (Manual) Monocytes # (Manual) PT INR D-Dimer ABG pH ABG pO2 ABG HCO3 ABG O2 Saturation ABG Base Excess ABG Hemoglobin Oxyhemoglobin Sodium 133 L Potassium Chloride 97.9 L Carbon Dioxide BUN 36 H Creatinine 0.5 L Glucose 126 H POC Glucose 127 H Lactic Acid Calcium 8.3 L Phosphorus Magnesium AST ALT Alkaline Phosphatase Lactate Dehydrogenase Troponin T C-Reactive Protein NT-Pro-B Natriuret Pep Total Protein Albumin LDL Cholesterol Direct Vitamin B12 Urine WBC (Auto) Fluid Glucose Fluid Total Protein Vancomycin Trough Crossmatch 12/19/21 12/19/21 12/19/21 05:26 12:20 16:43 WBC RBC Hgb Hct MCV MCH MCHC RDW Plt Count Eos % (Auto) Eos # (Auto) Seg Neuts % (Manual) Lymphocytes % (Manual) Seg Neutrophils # Seg Neutrophils # Man Lymphocytes # (Manual) Monocytes # (Manual) PT INR D-Dimer ABG pH ABG pO2 ABG HCO3 ABG O2 Saturation ABG Base Excess ABG Hemoglobin Oxyhemoglobin Sodium Potassium Chloride Carbon Dioxide BUN Creatinine Glucose POC Glucose 119 H 145 H 126 H Lactic Acid Calcium Phosphorus Magnesium AST ALT Alkaline Phosphatase Lactate Dehydrogenase Troponin T C-Reactive Protein NT-Pro-B Natriuret Pep Total Protein Albumin LDL Cholesterol Direct Vitamin B12 Urine WBC (Auto) Fluid Glucose Fluid Total Protein Vancomycin Trough Crossmatch 12/19/21 12/20/21 12/20/21 23:30 04:54 04:54 WBC 12.3 H RBC 3.54 L Hgb 10.0 L Hct 29.5 L MCV MCH MCHC RDW 17.8 H Plt Count Eos % (Auto) Eos # (Auto) Seg Neuts % (Manual) 88.0 H Lymphocytes % (Manual) 6.0 L Seg Neutrophils # Seg Neutrophils # Man 10.8 H Lymphocytes # (Manual) 0.7 L Monocytes # (Manual) PT INR D-Dimer ABG pH ABG pO2 ABG HCO3 ABG O2 Saturation ABG Base Excess ABG Hemoglobin Oxyhemoglobin Sodium 131 L Potassium Chloride 96.2 L Carbon Dioxide BUN 36 H Creatinine 0.5 L Glucose 130 H POC Glucose 117 H Lactic Acid Calcium Phosphorus Magnesium AST ALT Alkaline Phosphatase Lactate Dehydrogenase Troponin T C-Reactive Protein NT-Pro-B Natriuret Pep Total Protein Albumin LDL Cholesterol Direct Vitamin B12 Urine WBC (Auto) Fluid Glucose Fluid Total Protein Vancomycin Trough Crossmatch 12/20/21 12/20/21 12/20/21 05:20 11:51 17:30 WBC RBC Hgb Hct MCV MCH MCHC RDW Plt Count Eos % (Auto) Eos # (Auto) Seg Neuts % (Manual) Lymphocytes % (Manual) Seg Neutrophils # Seg Neutrophils # Man Lymphocytes # (Manual) Monocytes # (Manual) PT INR D-Dimer ABG pH ABG pO2 ABG HCO3 ABG O2 Saturation ABG Base Excess ABG Hemoglobin Oxyhemoglobin Sodium Potassium Chloride Carbon Dioxide BUN Creatinine Glucose POC Glucose 126 H 119 H 127 H Lactic Acid Calcium Phosphorus Magnesium AST ALT Alkaline Phosphatase Lactate Dehydrogenase Troponin T C-Reactive Protein NT-Pro-B Natriuret Pep Total Protein Albumin LDL Cholesterol Direct Vitamin B12 Urine WBC (Auto) Fluid Glucose Fluid Total Protein Vancomycin Trough Crossmatch 12/21/21 12/21/21 12/21/21 00:45 04:21 04:21 WBC RBC 3.47 L Hgb 9.4 L Hct 29.2 L MCV MCH 27 L MCHC RDW 18.1 H Plt Count Eos % (Auto) Eos # (Auto) Seg Neuts % (Manual) Lymphocytes % (Manual) Seg Neutrophils # Seg Neutrophils # Man Lymphocytes # (Manual) Monocytes # (Manual) PT INR D-Dimer ABG pH ABG pO2 ABG HCO3 ABG O2 Saturation ABG Base Excess ABG Hemoglobin Oxyhemoglobin Sodium 134 L Potassium Chloride Carbon Dioxide BUN 35 H Creatinine 0.5 L Glucose 122 H POC Glucose 125 H Lactic Acid Calcium 8.2 L Phosphorus Magnesium AST ALT Alkaline Phosphatase Lactate Dehydrogenase Troponin T C-Reactive Protein NT-Pro-B Natriuret Pep Total Protein Albumin LDL Cholesterol Direct Vitamin B12 Urine WBC (Auto) Fluid Glucose Fluid Total Protein Vancomycin Trough Crossmatch 12/21/21 12/21/21 12/21/21 05:38 11:29 16:16 WBC RBC Hgb Hct MCV MCH MCHC RDW Plt Count Eos % (Auto) Eos # (Auto) Seg Neuts % (Manual) Lymphocytes % (Manual) Seg Neutrophils # Seg Neutrophils # Man Lymphocytes # (Manual) Monocytes # (Manual) PT INR D-Dimer ABG pH ABG pO2 ABG HCO3 ABG O2 Saturation ABG Base Excess ABG Hemoglobin Oxyhemoglobin Sodium Potassium Chloride Carbon Dioxide BUN Creatinine Glucose POC Glucose 127 H 121 H 113 H Lactic Acid Calcium Phosphorus Magnesium AST ALT Alkaline Phosphatase Lactate Dehydrogenase Troponin T C-Reactive Protein NT-Pro-B Natriuret Pep Total Protein Albumin LDL Cholesterol Direct Vitamin B12 Urine WBC (Auto) Fluid Glucose Fluid Total Protein Vancomycin Trough Crossmatch 12/22/21 12/22/21 12/23/21 04:58 04:58 06:40 WBC 11.5 H RBC 3.43 L Hgb 9.8 L Hct 28.7 L MCV MCH MCHC RDW 18.5 H 17.9 H Plt Count Eos % (Auto) Eos # (Auto) Seg Neuts % (Manual) Lymphocytes % (Manual) Seg Neutrophils # Seg Neutrophils # Man Lymphocytes # (Manual) Monocytes # (Manual) PT INR D-Dimer ABG pH ABG pO2 ABG HCO3 ABG O2 Saturation ABG Base Excess ABG Hemoglobin Oxyhemoglobin Sodium 130 L Potassium Chloride 97.8 L Carbon Dioxide BUN 31 H Creatinine 0.5 L Glucose 122 H POC Glucose Lactic Acid Calcium 7.9 L Phosphorus Magnesium AST ALT Alkaline Phosphatase Lactate Dehydrogenase Troponin T C-Reactive Protein NT-Pro-B Natriuret Pep Total Protein Albumin LDL Cholesterol Direct Vitamin B12 Urine WBC (Auto) Fluid Glucose Fluid Total Protein Vancomycin Trough Crossmatch 12/23/21 12/23/21 12/24/21 06:40 23:25 04:24 WBC 11.7 H RBC Hgb 9.8 L Hct MCV MCH 26 L MCHC RDW 18.1 H Plt Count Eos % (Auto) Eos # (Auto) Seg Neuts % (Manual) Lymphocytes % (Manual) Seg Neutrophils # Seg Neutrophils # Man Lymphocytes # (Manual) Monocytes # (Manual) PT INR D-Dimer ABG pH ABG pO2 ABG HCO3 ABG O2 Saturation ABG Base Excess ABG Hemoglobin Oxyhemoglobin Sodium 136 L Potassium Chloride Carbon Dioxide BUN 27 H Creatinine 0.4 L Glucose 107 H POC Glucose 110 H Lactic Acid Calcium 8.1 L Phosphorus Magnesium AST ALT Alkaline Phosphatase Lactate Dehydrogenase Troponin T C-Reactive Protein NT-Pro-B Natriuret Pep Total Protein Albumin LDL Cholesterol Direct Vitamin B12 Urine WBC (Auto) Fluid Glucose Fluid Total Protein Vancomycin Trough Crossmatch 12/24/21 12/24/21 12/24/21 04:24 11:08 15:45 WBC RBC Hgb Hct MCV MCH MCHC RDW Plt Count Eos % (Auto) Eos # (Auto) Seg Neuts % (Manual) Lymphocytes % (Manual) Seg Neutrophils # Seg Neutrophils # Man Lymphocytes # (Manual) Monocytes # (Manual) PT INR D-Dimer ABG pH ABG pO2 ABG HCO3 ABG O2 Saturation ABG Base Excess ABG Hemoglobin Oxyhemoglobin Sodium 132 L Potassium Chloride Carbon Dioxide BUN 27 H Creatinine 0.3 L Glucose 108 H POC Glucose 116 H 107 H Lactic Acid Calcium Phosphorus Magnesium AST ALT Alkaline Phosphatase Lactate Dehydrogenase Troponin T C-Reactive Protein NT-Pro-B Natriuret Pep Total Protein Albumin LDL Cholesterol Direct Vitamin B12 Urine WBC (Auto) Fluid Glucose Fluid Total Protein Vancomycin Trough Crossmatch 12/24/21 12/25/21 12/25/21 23:43 05:29 11:48 WBC RBC Hgb Hct MCV MCH MCHC RDW Plt Count Eos % (Auto) Eos # (Auto) Seg Neuts % (Manual) Lymphocytes % (Manual) Seg Neutrophils # Seg Neutrophils # Man Lymphocytes # (Manual) Monocytes # (Manual) PT INR D-Dimer ABG pH ABG pO2 ABG HCO3 ABG O2 Saturation ABG Base Excess ABG Hemoglobin Oxyhemoglobin Sodium Potassium Chloride Carbon Dioxide BUN Creatinine Glucose POC Glucose 123 H 107 H 119 H Lactic Acid Calcium Phosphorus Magnesium AST ALT Alkaline Phosphatase Lactate Dehydrogenase Troponin T C-Reactive Protein NT-Pro-B Natriuret Pep Total Protein Albumin LDL Cholesterol Direct Vitamin B12 Urine WBC (Auto) Fluid Glucose Fluid Total Protein Vancomycin Trough Crossmatch 12/26/21 12/26/21 12/26/21 00:06 05:56 07:51 WBC 11.4 H RBC 3.40 L Hgb 9.3 L Hct 28.3 L MCV MCH 27 L MCHC RDW 18.2 H Plt Count Eos % (Auto) Eos # (Auto) Seg Neuts % (Manual) Lymphocytes % (Manual) Seg Neutrophils # Seg Neutrophils # Man Lymphocytes # (Manual) Monocytes # (Manual) PT INR D-Dimer ABG pH ABG pO2 ABG HCO3 ABG O2 Saturation ABG Base Excess ABG Hemoglobin Oxyhemoglobin Sodium Potassium Chloride Carbon Dioxide BUN Creatinine Glucose POC Glucose 133 H 107 H Lactic Acid Calcium Phosphorus Magnesium AST ALT Alkaline Phosphatase Lactate Dehydrogenase Troponin T C-Reactive Protein NT-Pro-B Natriuret Pep Total Protein Albumin LDL Cholesterol Direct Vitamin B12 Urine WBC (Auto) Fluid Glucose Fluid Total Protein Vancomycin Trough Crossmatch 12/26/21 12/26/21 12/26/21 07:51 11:43 17:06 WBC RBC Hgb Hct MCV MCH MCHC RDW Plt Count Eos % (Auto) Eos # (Auto) Seg Neuts % (Manual) Lymphocytes % (Manual) Seg Neutrophils # Seg Neutrophils # Man Lymphocytes # (Manual) Monocytes # (Manual) PT INR D-Dimer ABG pH ABG pO2 ABG HCO3 ABG O2 Saturation ABG Base Excess ABG Hemoglobin Oxyhemoglobin Sodium 136 L Potassium Chloride Carbon Dioxide BUN 25 H Creatinine 0.3 L Glucose 131 H POC Glucose 119 H 128 H Lactic Acid Calcium Phosphorus Magnesium AST ALT Alkaline Phosphatase Lactate Dehydrogenase Troponin T C-Reactive Protein NT-Pro-B Natriuret Pep Total Protein Albumin LDL Cholesterol Direct Vitamin B12 Urine WBC (Auto) Fluid Glucose Fluid Total Protein Vancomycin Trough Crossmatch 12/28/21 12/28/21 12/29/21 09:05 09:05 04:40 WBC RBC 3.19 L Hgb 8.9 L Hct 26.4 L MCV MCH 27 L MCHC RDW 18.4 H 17.9 H Plt Count Eos % (Auto) Eos # (Auto) Seg Neuts % (Manual) Lymphocytes % (Manual) Seg Neutrophils # Seg Neutrophils # Man Lymphocytes # (Manual) Monocytes # (Manual) PT INR D-Dimer ABG pH ABG pO2 ABG HCO3 ABG O2 Saturation ABG Base Excess ABG Hemoglobin Oxyhemoglobin Sodium 135 L Potassium Chloride 97.8 L Carbon Dioxide BUN 18 H Creatinine 0.3 L Glucose POC Glucose Lactic Acid Calcium Phosphorus Magnesium AST ALT Alkaline Phosphatase Lactate Dehydrogenase Troponin T C-Reactive Protein NT-Pro-B Natriuret Pep Total Protein Albumin LDL Cholesterol Direct Vitamin B12 Urine WBC (Auto) Fluid Glucose Fluid Total Protein Vancomycin Trough Crossmatch 12/29/21 12/29/21 12/30/21 04:40 12:47 04:05 WBC RBC 3.29 L Hgb 8.7 L Hct 27.6 L MCV MCH 27 L MCHC RDW 17.6 H Plt Count Eos % (Auto) Eos # (Auto) Seg Neuts % (Manual) Lymphocytes % (Manual) Seg Neutrophils # Seg Neutrophils # Man Lymphocytes # (Manual) Monocytes # (Manual) PT INR D-Dimer ABG pH ABG pO2 ABG HCO3 ABG O2 Saturation ABG Base Excess ABG Hemoglobin Oxyhemoglobin Sodium 136 L Potassium Chloride Carbon Dioxide BUN Creatinine 0.3 L Glucose POC Glucose 67 L Lactic Acid Calcium 8.3 L Phosphorus Magnesium AST ALT Alkaline Phosphatase Lactate Dehydrogenase Troponin T C-Reactive Protein NT-Pro-B Natriuret Pep Total Protein Albumin LDL Cholesterol Direct Vitamin B12 Urine WBC (Auto) Fluid Glucose Fluid Total Protein Vancomycin Trough Crossmatch 12/30/21 12/31/21 12/31/21 04:05 00:07 04:00 WBC RBC 3.05 L Hgb 8.5 L Hct 25.5 L MCV MCH MCHC RDW 18.2 H Plt Count Eos % (Auto) Eos # (Auto) Seg Neuts % (Manual) Lymphocytes % (Manual) Seg Neutrophils # Seg Neutrophils # Man Lymphocytes # (Manual) Monocytes # (Manual) PT INR D-Dimer ABG pH ABG pO2 ABG HCO3 ABG O2 Saturation ABG Base Excess ABG Hemoglobin Oxyhemoglobin Sodium 136 L Potassium 3.5 L Chloride Carbon Dioxide BUN Creatinine 0.4 L Glucose POC Glucose 139 H Lactic Acid Calcium Phosphorus Magnesium 1.50 L AST ALT Alkaline Phosphatase Lactate Dehydrogenase Troponin T C-Reactive Protein NT-Pro-B Natriuret Pep Total Protein Albumin LDL Cholesterol Direct Vitamin B12 Urine WBC (Auto) Fluid Glucose Fluid Total Protein Vancomycin Trough Crossmatch 12/31/21 12/31/21 12/31/21 04:00 04:52 11:23 WBC RBC Hgb Hct MCV MCH MCHC RDW Plt Count Eos % (Auto) Eos # (Auto) Seg Neuts % (Manual) Lymphocytes % (Manual) Seg Neutrophils # Seg Neutrophils # Man Lymphocytes # (Manual) Monocytes # (Manual) PT INR D-Dimer ABG pH ABG pO2 ABG HCO3 ABG O2 Saturation ABG Base Excess ABG Hemoglobin Oxyhemoglobin Sodium Potassium Chloride Carbon Dioxide BUN 19 H Creatinine 0.4 L Glucose 116 H POC Glucose 121 H 116 H Lactic Acid Calcium Phosphorus Magnesium AST ALT Alkaline Phosphatase Lactate Dehydrogenase Troponin T C-Reactive Protein NT-Pro-B Natriuret Pep Total Protein Albumin LDL Cholesterol Direct Vitamin B12 Urine WBC (Auto) Fluid Glucose Fluid Total Protein Vancomycin Trough Crossmatch 12/31/21 01/01/22 01/01/22 17:42 04:31 04:31 WBC RBC 2.83 L Hgb 7.7 L Hct 23.2 L MCV MCH 27 L MCHC RDW 18.3 H Plt Count Eos % (Auto) Eos # (Auto) Seg Neuts % (Manual) Lymphocytes % (Manual) Seg Neutrophils # Seg Neutrophils # Man Lymphocytes # (Manual) Monocytes # (Manual) PT INR D-Dimer ABG pH ABG pO2 ABG HCO3 ABG O2 Saturation ABG Base Excess ABG Hemoglobin Oxyhemoglobin Sodium 135 L Potassium Chloride 97.7 L Carbon Dioxide BUN 21 H Creatinine 0.5 L Glucose 127 H POC Glucose 107 H Lactic Acid Calcium 8.0 L Phosphorus Magnesium AST ALT Alkaline Phosphatase Lactate Dehydrogenase Troponin T C-Reactive Protein NT-Pro-B Natriuret Pep Total Protein Albumin LDL Cholesterol Direct Vitamin B12 Urine WBC (Auto) Fluid Glucose Fluid Total Protein Vancomycin Trough Crossmatch 01/01/22 01/01/22 01/01/22 05:24 11:25 18:11 WBC RBC Hgb Hct MCV MCH MCHC RDW Plt Count Eos % (Auto) Eos # (Auto) Seg Neuts % (Manual) Lymphocytes % (Manual) Seg Neutrophils # Seg Neutrophils # Man Lymphocytes # (Manual) Monocytes # (Manual) PT INR D-Dimer ABG pH ABG pO2 ABG HCO3 ABG O2 Saturation ABG Base Excess ABG Hemoglobin Oxyhemoglobin Sodium Potassium Chloride Carbon Dioxide BUN Creatinine Glucose POC Glucose 124 H 140 H 144 H Lactic Acid Calcium Phosphorus Magnesium AST ALT Alkaline Phosphatase Lactate Dehydrogenase Troponin T C-Reactive Protein NT-Pro-B Natriuret Pep Total Protein Albumin LDL Cholesterol Direct Vitamin B12 Urine WBC (Auto) Fluid Glucose Fluid Total Protein Vancomycin Trough Crossmatch 01/01/22 01/02/22 01/02/22 23:26 04:01 04:01 WBC RBC 2.57 L Hgb 7.1 L Hct 21.5 L MCV MCH MCHC RDW 18.1 H Plt Count Eos % (Auto) Eos # (Auto) Seg Neuts % (Manual) Lymphocytes % (Manual) Seg Neutrophils # Seg Neutrophils # Man Lymphocytes # (Manual) Monocytes # (Manual) PT INR D-Dimer ABG pH ABG pO2 ABG HCO3 ABG O2 Saturation ABG Base Excess ABG Hemoglobin Oxyhemoglobin Sodium 131 L Potassium 3.5 L Chloride 94.8 L Carbon Dioxide BUN 27 H Creatinine Glucose 121 H POC Glucose 121 H Lactic Acid Calcium Phosphorus Magnesium AST ALT Alkaline Phosphatase Lactate Dehydrogenase Troponin T C-Reactive Protein NT-Pro-B Natriuret Pep Total Protein Albumin LDL Cholesterol Direct Vitamin B12 Urine WBC (Auto) Fluid Glucose Fluid Total Protein Vancomycin Trough Crossmatch 01/02/22 01/02/22 01/02/22 05:30 11:10 16:08 WBC RBC Hgb Hct MCV MCH MCHC RDW Plt Count Eos % (Auto) Eos # (Auto) Seg Neuts % (Manual) Lymphocytes % (Manual) Seg Neutrophils # Seg Neutrophils # Man Lymphocytes # (Manual) Monocytes # (Manual) PT INR D-Dimer ABG pH ABG pO2 ABG HCO3 ABG O2 Saturation ABG Base Excess ABG Hemoglobin Oxyhemoglobin Sodium Potassium Chloride Carbon Dioxide BUN Creatinine Glucose POC Glucose 124 H 117 H 130 H Lactic Acid Calcium Phosphorus Magnesium AST ALT Alkaline Phosphatase Lactate Dehydrogenase Troponin T C-Reactive Protein NT-Pro-B Natriuret Pep Total Protein Albumin LDL Cholesterol Direct Vitamin B12 Urine WBC (Auto) Fluid Glucose Fluid Total Protein Vancomycin Trough Crossmatch 01/02/22 01/02/2222 17:30 23:26 04:53 WBC RBC 2.82 L Hgb 7.7 L Hct 23.4 L MCV MCH 27 L MCHC RDW 18.0 H Plt Count Eos % (Auto) Eos # (Auto) Seg Neuts % (Manual) Lymphocytes % (Manual) Seg Neutrophils # Seg Neutrophils # Man Lymphocytes # (Manual) Monocytes # (Manual) PT INR D-Dimer ABG pH ABG pO2 ABG HCO3 ABG O2 Saturation ABG Base Excess ABG Hemoglobin Oxyhemoglobin Sodium Potassium Chloride Carbon Dioxide BUN Creatinine Glucose POC Glucose 114 H Lactic Acid Calcium Phosphorus Magnesium AST ALT Alkaline Phosphatase Lactate Dehydrogenase Troponin T C-Reactive Protein NT-Pro-B Natriuret Pep Total Protein Albumin LDL Cholesterol Direct Vitamin B12 Urine WBC (Auto) Fluid Glucose Fluid Total Protein Vancomycin Trough 22.8 H Crossmatch 01/03/22 01/03/22 01/03/22 04:53 06:23 17:35 WBC RBC Hgb Hct MCV MCH MCHC RDW Plt Count Eos % (Auto) Eos # (Auto) Seg Neuts % (Manual) Lymphocytes % (Manual) Seg Neutrophils # Seg Neutrophils # Man Lymphocytes # (Manual) Monocytes # (Manual) PT INR D-Dimer ABG pH ABG pO2 ABG HCO3 ABG O2 Saturation ABG Base Excess ABG Hemoglobin Oxyhemoglobin Sodium 133 L Potassium Chloride 96.2 L Carbon Dioxide BUN 30 H Creatinine Glucose 107 H POC Glucose 122 H 107 H Lactic Acid Calcium Phosphorus Magnesium AST ALT Alkaline Phosphatase Lactate Dehydrogenase Troponin T C-Reactive Protein NT-Pro-B Natriuret Pep Total Protein Albumin LDL Cholesterol Direct Vitamin B12 Urine WBC (Auto) Fluid Glucose Fluid Total Protein Vancomycin Trough Crossmatch 01/04/22 01/04/22 01/04/22 04:00 12:32 16:45 WBC RBC Hgb Hct MCV MCH MCHC RDW Plt Count Eos % (Auto) Eos # (Auto) Seg Neuts % (Manual) Lymphocytes % (Manual) Seg Neutrophils # Seg Neutrophils # Man Lymphocytes # (Manual) Monocytes # (Manual) PT INR D-Dimer ABG pH ABG pO2 ABG HCO3 ABG O2 Saturation ABG Base Excess ABG Hemoglobin Oxyhemoglobin Sodium 132 L Potassium Chloride 92.8 L Carbon Dioxide BUN 30 H Creatinine Glucose 115 H POC Glucose 111 H 111 H Lactic Acid Calcium Phosphorus Magnesium 1.60 L AST ALT Alkaline Phosphatase Lactate Dehydrogenase Troponin T C-Reactive Protein NT-Pro-B Natriuret Pep Total Protein Albumin LDL Cholesterol Direct Vitamin B12 Urine WBC (Auto) Fluid Glucose Fluid Total Protein Vancomycin Trough Crossmatch 01/05/22 01/05/22 01/05/22 04:30 04:30 17:04 WBC RBC 3.11 L Hgb 8.4 L Hct 25.5 L MCV MCH 27 L MCHC RDW 17.6 H Plt Count Eos % (Auto) Eos # (Auto) Seg Neuts % (Manual) Lymphocytes % (Manual) Seg Neutrophils # Seg Neutrophils # Man Lymphocytes # (Manual) Monocytes # (Manual) PT INR D-Dimer ABG pH ABG pO2 ABG HCO3 ABG O2 Saturation ABG Base Excess ABG Hemoglobin Oxyhemoglobin Sodium 135 L Potassium Chloride 93.6 L Carbon Dioxide BUN 29 H Creatinine Glucose POC Glucose 67 L Lactic Acid Calcium Phosphorus Magnesium AST ALT Alkaline Phosphatase Lactate Dehydrogenase Troponin T C-Reactive Protein NT-Pro-B Natriuret Pep Total Protein Albumin LDL Cholesterol Direct Vitamin B12 Urine WBC (Auto) Fluid Glucose Fluid Total Protein Vancomycin Trough Crossmatch 01/05/22 01/06/22 01/06/22 23:27 04:06 04:06 WBC RBC 2.89 L Hgb 7.7 L Hct 23.8 L MCV MCH 27 L MCHC RDW 18.0 H Plt Count Eos % (Auto) Eos # (Auto) Seg Neuts % (Manual) Lymphocytes % (Manual) Seg Neutrophils # Seg Neutrophils # Man Lymphocytes # (Manual) Monocytes # (Manual) PT 16.9 H INR 1.23 H D-Dimer ABG pH ABG pO2 ABG HCO3 ABG O2 Saturation ABG Base Excess ABG Hemoglobin Oxyhemoglobin Sodium Potassium Chloride Carbon Dioxide BUN Creatinine Glucose POC Glucose 110 H Lactic Acid Calcium Phosphorus Magnesium AST ALT Alkaline Phosphatase Lactate Dehydrogenase Troponin T C-Reactive Protein NT-Pro-B Natriuret Pep Total Protein Albumin LDL Cholesterol Direct Vitamin B12 Urine WBC (Auto) Fluid Glucose Fluid Total Protein Vancomycin Trough Crossmatch 01/06/22 01/06/22 01/06/22 04:06 13:40 23:41 WBC RBC Hgb Hct MCV MCH MCHC RDW Plt Count Eos % (Auto) Eos # (Auto) Seg Neuts % (Manual) Lymphocytes % (Manual) Seg Neutrophils # Seg Neutrophils # Man Lymphocytes # (Manual) Monocytes # (Manual) PT INR D-Dimer ABG pH ABG pO2 ABG HCO3 ABG O2 Saturation ABG Base Excess ABG Hemoglobin Oxyhemoglobin Sodium 132 L Potassium Chloride 92.3 L Carbon Dioxide BUN 26 H Creatinine Glucose 111 H POC Glucose 120 H Lactic Acid Calcium Phosphorus Magnesium AST ALT Alkaline Phosphatase Lactate Dehydrogenase Troponin T C-Reactive Protein NT-Pro-B Natriuret Pep Total Protein Albumin LDL Cholesterol Direct Vitamin B12 Urine WBC (Auto) Fluid Glucose 96 H Fluid Total Protein < 3.0 L Vancomycin Trough Crossmatch 01/07/22 01/07/22 01/07/22 05:20 11:30 17:00 WBC RBC Hgb Hct MCV MCH MCHC RDW Plt Count Eos % (Auto) Eos # (Auto) Seg Neuts % (Manual) Lymphocytes % (Manual) Seg Neutrophils # Seg Neutrophils # Man Lymphocytes # (Manual) Monocytes # (Manual) PT INR D-Dimer ABG pH ABG pO2 ABG HCO3 ABG O2 Saturation ABG Base Excess ABG Hemoglobin Oxyhemoglobin Sodium Potassium Chloride Carbon Dioxide BUN Creatinine Glucose POC Glucose 111 H 113 H 121 H Lactic Acid Calcium Phosphorus Magnesium AST ALT Alkaline Phosphatase Lactate Dehydrogenase Troponin T C-Reactive Protein NT-Pro-B Natriuret Pep Total Protein Albumin LDL Cholesterol Direct Vitamin B12 Urine WBC (Auto) Fluid Glucose Fluid Total Protein Vancomycin Trough Crossmatch 01/07/22 01/08/22 01/08/22 23:41 11:26 16:23 WBC RBC Hgb Hct MCV MCH MCHC RDW Plt Count Eos % (Auto) Eos # (Auto) Seg Neuts % (Manual) Lymphocytes % (Manual) Seg Neutrophils # Seg Neutrophils # Man Lymphocytes # (Manual) Monocytes # (Manual) PT INR D-Dimer ABG pH ABG pO2 ABG HCO3 ABG O2 Saturation ABG Base Excess ABG Hemoglobin Oxyhemoglobin Sodium Potassium Chloride Carbon Dioxide BUN Creatinine Glucose POC Glucose 110 H 129 H 118 H Lactic Acid Calcium Phosphorus Magnesium AST ALT Alkaline Phosphatase Lactate Dehydrogenase Troponin T C-Reactive Protein NT-Pro-B Natriuret Pep Total Protein Albumin LDL Cholesterol Direct Vitamin B12 Urine WBC (Auto) Fluid Glucose Fluid Total Protein Vancomycin Trough Crossmatch 01/09/22 01/10/22 01/10/22 18:13 00:27 04:00 WBC RBC Hgb Hct MCV MCH MCHC RDW Plt Count Eos % (Auto) Eos # (Auto) Seg Neuts % (Manual) Lymphocytes % (Manual) Seg Neutrophils # Seg Neutrophils # Man Lymphocytes # (Manual) Monocytes # (Manual) PT INR D-Dimer ABG pH ABG pO2 ABG HCO3 ABG O2 Saturation ABG Base Excess ABG Hemoglobin Oxyhemoglobin Sodium 133 L Potassium Chloride 92.6 L Carbon Dioxide 31 H BUN 29 H Creatinine 0.5 L Glucose 115 H POC Glucose 118 H 111 H Lactic Acid Calcium Phosphorus Magnesium AST ALT Alkaline Phosphatase Lactate Dehydrogenase Troponin T C-Reactive Protein NT-Pro-B Natriuret Pep Total Protein Albumin LDL Cholesterol Direct Vitamin B12 Urine WBC (Auto) Fluid Glucose Fluid Total Protein Vancomycin Trough Crossmatch 01/10/22 01/11/22 01/11/22 05:47 05:10 11:14 WBC RBC Hgb Hct MCV MCH MCHC RDW Plt Count Eos % (Auto) Eos # (Auto) Seg Neuts % (Manual) Lymphocytes % (Manual) Seg Neutrophils # Seg Neutrophils # Man Lymphocytes # (Manual) Monocytes # (Manual) PT INR D-Dimer ABG pH ABG pO2 ABG HCO3 ABG O2 Saturation ABG Base Excess ABG Hemoglobin Oxyhemoglobin Sodium Potassium Chloride Carbon Dioxide BUN Creatinine Glucose POC Glucose 106 H 118 H 136 H Lactic Acid Calcium Phosphorus Magnesium AST ALT Alkaline Phosphatase Lactate Dehydrogenase Troponin T C-Reactive Protein NT-Pro-B Natriuret Pep Total Protein Albumin LDL Cholesterol Direct Vitamin B12 Urine WBC (Auto) Fluid Glucose Fluid Total Protein Vancomycin Trough Crossmatch 01/11/22 01/11/22 01/12/22 17:14 23:52 05:39 WBC RBC Hgb Hct MCV MCH MCHC RDW Plt Count Eos % (Auto) Eos # (Auto) Seg Neuts % (Manual) Lymphocytes % (Manual) Seg Neutrophils # Seg Neutrophils # Man Lymphocytes # (Manual) Monocytes # (Manual) PT INR D-Dimer ABG pH ABG pO2 ABG HCO3 ABG O2 Saturation ABG Base Excess ABG Hemoglobin Oxyhemoglobin Sodium Potassium Chloride Carbon Dioxide BUN Creatinine Glucose POC Glucose 117 H 110 H 110 H Lactic Acid Calcium Phosphorus Magnesium AST ALT Alkaline Phosphatase Lactate Dehydrogenase Troponin T C-Reactive Protein NT-Pro-B Natriuret Pep Total Protein Albumin LDL Cholesterol Direct Vitamin B12 Urine WBC (Auto) Fluid Glucose Fluid Total Protein Vancomycin Trough Crossmatch 01/13/22 01/13/22 01/14/22 11:15 17:21 05:33 WBC RBC Hgb Hct MCV MCH MCHC RDW Plt Count Eos % (Auto) Eos # (Auto) Seg Neuts % (Manual) Lymphocytes % (Manual) Seg Neutrophils # Seg Neutrophils # Man Lymphocytes # (Manual) Monocytes # (Manual) PT INR D-Dimer ABG pH ABG pO2 ABG HCO3 ABG O2 Saturation ABG Base Excess ABG Hemoglobin Oxyhemoglobin Sodium Potassium Chloride Carbon Dioxide BUN Creatinine Glucose POC Glucose 113 H 121 H 136 H Lactic Acid Calcium Phosphorus Magnesium AST ALT Alkaline Phosphatase Lactate Dehydrogenase Troponin T C-Reactive Protein NT-Pro-B Natriuret Pep Total Protein Albumin LDL Cholesterol Direct Vitamin B12 Urine WBC (Auto) Fluid Glucose Fluid Total Protein Vancomycin Trough Crossmatch 01/14/22 01/15/22 01/15/22 11:28 00:13 05:24 WBC RBC Hgb Hct MCV MCH MCHC RDW Plt Count Eos % (Auto) Eos # (Auto) Seg Neuts % (Manual) Lymphocytes % (Manual) Seg Neutrophils # Seg Neutrophils # Man Lymphocytes # (Manual) Monocytes # (Manual) PT INR D-Dimer ABG pH ABG pO2 ABG HCO3 ABG O2 Saturation ABG Base Excess ABG Hemoglobin Oxyhemoglobin Sodium Potassium Chloride Carbon Dioxide BUN Creatinine Glucose POC Glucose 117 H 109 H 117 H Lactic Acid Calcium Phosphorus Magnesium AST ALT Alkaline Phosphatase Lactate Dehydrogenase Troponin T C-Reactive Protein NT-Pro-B Natriuret Pep Total Protein Albumin LDL Cholesterol Direct Vitamin B12 Urine WBC (Auto) Fluid Glucose Fluid Total Protein Vancomycin Trough Crossmatch 01/15/22 01/15/22 01/15/22 11:38 14:36 17:05 WBC RBC 3.11 L Hgb 8.4 L Hct 25.7 L MCV MCH 27 L MCHC RDW 17.2 H Plt Count Eos % (Auto) Eos # (Auto) Seg Neuts % (Manual) 82.0 H Lymphocytes % (Manual) 11.0 L Seg Neutrophils # Seg Neutrophils # Man 8.8 H Lymphocytes # (Manual) Monocytes # (Manual) PT INR D-Dimer ABG pH ABG pO2 ABG HCO3 ABG O2 Saturation ABG Base Excess ABG Hemoglobin Oxyhemoglobin Sodium Potassium Chloride Carbon Dioxide BUN Creatinine Glucose POC Glucose 107 H 108 H Lactic Acid Calcium Phosphorus Magnesium AST ALT Alkaline Phosphatase Lactate Dehydrogenase Troponin T C-Reactive Protein NT-Pro-B Natriuret Pep Total Protein Albumin LDL Cholesterol Direct Vitamin B12 Urine WBC (Auto) Fluid Glucose Fluid Total Protein Vancomycin Trough Crossmatch 0301/15/22 01/15/22 21:07 Unknown Unknown WBC RBC 2.97 L Hgb 8.0 L Hct 24.3 L MCV MCH 27 L MCHC RDW 17.2 H Plt Count Eos % (Auto) Eos # (Auto) Seg Neuts % (Manual) Lymphocytes % (Manual) Seg Neutrophils # Seg Neutrophils # Man Lymphocytes # (Manual) Monocytes # (Manual) PT INR D-Dimer ABG pH ABG pO2 ABG HCO3 ABG O2 Saturation ABG Base Excess ABG Hemoglobin Oxyhemoglobin Sodium 131 L Potassium Chloride 93.1 L Carbon Dioxide BUN 27 H Creatinine Glucose 110 H POC Glucose Lactic Acid Calcium 8.3 L Phosphorus Magnesium AST ALT Alkaline Phosphatase Lactate Dehydrogenase Troponin T 0.088 H C-Reactive Protein NT-Pro-B Natriuret Pep Total Protein Albumin LDL Cholesterol Direct 44 L Vitamin B12 Urine WBC (Auto) Fluid Glucose Fluid Total Protein Vancomycin Trough Crossmatch 01/15/22 01/16/22 01/16/22 Unknown 05:21 12:59 WBC RBC Hgb Hct MCV MCH MCHC RDW Plt Count Eos % (Auto) Eos # (Auto) Seg Neuts % (Manual) Lymphocytes % (Manual) Seg Neutrophils # Seg Neutrophils # Man Lymphocytes # (Manual) Monocytes # (Manual) PT INR D-Dimer ABG pH ABG pO2 ABG HCO3 ABG O2 Saturation ABG Base Excess ABG Hemoglobin Oxyhemoglobin Sodium 134 L 134 L Potassium 3.4 L Chloride 93.9 L 95.4 L Carbon Dioxide BUN 26 H 24 H Creatinine Glucose 168 H POC Glucose 159 H Lactic Acid Calcium 8.1 L Phosphorus Magnesium AST ALT Alkaline Phosphatase Lactate Dehydrogenase Troponin T 0.078 H C-Reactive Protein NT-Pro-B Natriuret Pep Total Protein Albumin LDL Cholesterol Direct Vitamin B12 Urine WBC (Auto) Fluid Glucose Fluid Total Protein Vancomycin Trough Crossmatch 01/16/22 01/17/22 01/17/22 23:22 05:20 14:24 WBC RBC Hgb Hct MCV MCH MCHC RDW Plt Count Eos % (Auto) Eos # (Auto) Seg Neuts % (Manual) Lymphocytes % (Manual) Seg Neutrophils # Seg Neutrophils # Man Lymphocytes # (Manual) Monocytes # (Manual) PT INR D-Dimer ABG pH ABG pO2 55.0 L ABG HCO3 29.5 H ABG O2 Saturation 87.8 L ABG Base Excess 4.5 H ABG Hemoglobin 9.3 L Oxyhemoglobin 86.1 L Sodium Potassium Chloride Carbon Dioxide BUN Creatinine Glucose POC Glucose 113 H 111 H Lactic Acid Calcium Phosphorus Magnesium AST ALT Alkaline Phosphatase Lactate Dehydrogenase Troponin T C-Reactive Protein NT-Pro-B Natriuret Pep Total Protein Albumin LDL Cholesterol Direct Vitamin B12 Urine WBC (Auto) Fluid Glucose Fluid Total Protein Vancomycin Trough Crossmatch 01/17/22 01/18/22 01/18/22 17:14 05:39 11:53 WBC RBC Hgb Hct MCV MCH MCHC RDW Plt Count Eos % (Auto) Eos # (Auto) Seg Neuts % (Manual) Lymphocytes % (Manual) Seg Neutrophils # Seg Neutrophils # Man Lymphocytes # (Manual) Monocytes # (Manual) PT INR D-Dimer ABG pH ABG pO2 ABG HCO3 ABG O2 Saturation ABG Base Excess ABG Hemoglobin Oxyhemoglobin Sodium Potassium Chloride Carbon Dioxide BUN Creatinine Glucose POC Glucose 126 H 108 H 113 H Lactic Acid Calcium Phosphorus Magnesium AST ALT Alkaline Phosphatase Lactate Dehydrogenase Troponin T C-Reactive Protein NT-Pro-B Natriuret Pep Total Protein Albumin LDL Cholesterol Direct Vitamin B12 Urine WBC (Auto) Fluid Glucose Fluid Total Protein Vancomycin Trough Crossmatch 01/18/22 01/19/22 01/19/22 12:50 00:04 04:50 WBC RBC 3.14 L Hgb 8.4 L Hct 26.0 L MCV MCH 27 L MCHC RDW 18.2 H Plt Count Eos % (Auto) Eos # (Auto) Seg Neuts % (Manual) Lymphocytes % (Manual) Seg Neutrophils # Seg Neutrophils # Man Lymphocytes # (Manual) Monocytes # (Manual) PT INR D-Dimer ABG pH ABG pO2 112.3 H ABG HCO3 30.9 H ABG O2 Saturation ABG Base Excess 5.8 H ABG Hemoglobin 8.8 L Oxyhemoglobin Sodium Potassium Chloride Carbon Dioxide BUN Creatinine Glucose POC Glucose 115 H Lactic Acid Calcium Phosphorus Magnesium AST ALT Alkaline Phosphatase Lactate Dehydrogenase Troponin T C-Reactive Protein NT-Pro-B Natriuret Pep Total Protein Albumin LDL Cholesterol Direct Vitamin B12 Urine WBC (Auto) Fluid Glucose Fluid Total Protein Vancomycin Trough Crossmatch 01/19/22 01/19/22 01/19/22 04:50 11:51 20:45 WBC RBC Hgb Hct MCV MCH MCHC RDW Plt Count Eos % (Auto) Eos # (Auto) Seg Neuts % (Manual) Lymphocytes % (Manual) Seg Neutrophils # Seg Neutrophils # Man Lymphocytes # (Manual) Monocytes # (Manual) PT INR D-Dimer ABG pH ABG pO2 95.2 H ABG HCO3 29.8 H ABG O2 Saturation ABG Base Excess 4.3 H ABG Hemoglobin 8.0 L Oxyhemoglobin Sodium 134 L Potassium Chloride 95.4 L Carbon Dioxide BUN 28 H Creatinine Glucose POC Glucose 111 H Lactic Acid Calcium Phosphorus Magnesium AST ALT Alkaline Phosphatase Lactate Dehydrogenase Troponin T C-Reactive Protein NT-Pro-B Natriuret Pep Total Protein Albumin LDL Cholesterol Direct Vitamin B12 Urine WBC (Auto) Fluid Glucose Fluid Total Protein Vancomycin Trough Crossmatch 01/20/22 01/21/22 01/22/22 11:43 23:32 11:12 WBC RBC Hgb Hct MCV MCH MCHC RDW Plt Count Eos % (Auto) Eos # (Auto) Seg Neuts % (Manual) Lymphocytes % (Manual) Seg Neutrophils # Seg Neutrophils # Man Lymphocytes # (Manual) Monocytes # (Manual) PT INR D-Dimer ABG pH ABG pO2 ABG HCO3 ABG O2 Saturation ABG Base Excess ABG Hemoglobin Oxyhemoglobin Sodium Potassium Chloride Carbon Dioxide BUN Creatinine Glucose POC Glucose 118 H 113 H 110 H Lactic Acid Calcium Phosphorus Magnesium AST ALT Alkaline Phosphatase Lactate Dehydrogenase Troponin T C-Reactive Protein NT-Pro-B Natriuret Pep Total Protein Albumin LDL Cholesterol Direct Vitamin B12 Urine WBC (Auto) Fluid Glucose Fluid Total Protein Vancomycin Trough Crossmatch 01/22/22 01/23/22 01/23/22 17:54 09:36 11:49 WBC RBC Hgb Hct MCV MCH MCHC RDW Plt Count Eos % (Auto) Eos # (Auto) Seg Neuts % (Manual) Lymphocytes % (Manual) Seg Neutrophils # Seg Neutrophils # Man Lymphocytes # (Manual) Monocytes # (Manual) PT INR D-Dimer ABG pH ABG pO2 ABG HCO3 ABG O2 Saturation ABG Base Excess ABG Hemoglobin Oxyhemoglobin Sodium Potassium Chloride Carbon Dioxide BUN Creatinine Glucose POC Glucose 115 H 194 H Lactic Acid Calcium Phosphorus Magnesium AST ALT Alkaline Phosphatase Lactate Dehydrogenase Troponin T C-Reactive Protein NT-Pro-B Natriuret Pep Total Protein Albumin LDL Cholesterol Direct Vitamin B12 Urine WBC (Auto) 16.0 H Fluid Glucose Fluid Total Protein Vancomycin Trough Crossmatch 01/23/22 01/24/22 01/24/22 11:50 05:37 11:56 WBC RBC Hgb Hct MCV MCH MCHC RDW Plt Count Eos % (Auto) Eos # (Auto) Seg Neuts % (Manual) Lymphocytes % (Manual) Seg Neutrophils # Seg Neutrophils # Man Lymphocytes # (Manual) Monocytes # (Manual) PT INR D-Dimer ABG pH 7.310 L ABG pO2 43.9 L ABG HCO3 28.0 H ABG O2 Saturation 70.8 L ABG Base Excess ABG Hemoglobin 9.3 L Oxyhemoglobin 69.2 L Sodium Potassium Chloride Carbon Dioxide BUN Creatinine Glucose POC Glucose 118 H 119 H Lactic Acid Calcium Phosphorus Magnesium AST ALT Alkaline Phosphatase Lactate Dehydrogenase Troponin T C-Reactive Protein NT-Pro-B Natriuret Pep Total Protein Albumin LDL Cholesterol Direct Vitamin B12 Urine WBC (Auto) Fluid Glucose Fluid Total Protein Vancomycin Trough Crossmatch 01/25/22 01/25/22 01/26/22 12:20 13:17 05:59 WBC RBC Hgb Hct MCV MCH MCHC RDW Plt Count Eos % (Auto) Eos # (Auto) Seg Neuts % (Manual) Lymphocytes % (Manual) Seg Neutrophils # Seg Neutrophils # Man Lymphocytes # (Manual) Monocytes # (Manual) PT INR D-Dimer ABG pH 7.488 H ABG pO2 58.9 L ABG HCO3 28.3 H ABG O2 Saturation 94.9 L ABG Base Excess 4.7 H ABG Hemoglobin 8.7 L Oxyhemoglobin 92.7 L Sodium Potassium Chloride Carbon Dioxide BUN Creatinine Glucose POC Glucose 126 H 130 H Lactic Acid Calcium Phosphorus Magnesium AST ALT Alkaline Phosphatase Lactate Dehydrogenase Troponin T C-Reactive Protein NT-Pro-B Natriuret Pep Total Protein Albumin LDL Cholesterol Direct Vitamin B12 Urine WBC (Auto) Fluid Glucose Fluid Total Protein Vancomycin Trough Crossmatch 01/26/22 01/26/22 01/26/22 10:16 10:16 11:49 WBC 12.7 H RBC Hgb 9.9 L Hct MCV MCH 27 L MCHC RDW 18.3 H Plt Count Eos % (Auto) 4.5 H Eos # (Auto) 0.6 H Seg Neuts % (Manual) Lymphocytes % (Manual) Seg Neutrophils # 8.2 H Seg Neutrophils # Man Lymphocytes # (Manual) Monocytes # (Manual) PT INR D-Dimer ABG pH ABG pO2 ABG HCO3 ABG O2 Saturation ABG Base Excess ABG Hemoglobin Oxyhemoglobin Sodium Potassium Chloride 96.6 L Carbon Dioxide BUN 29 H Creatinine Glucose 140 H POC Glucose 161 H Lactic Acid Calcium Phosphorus Magnesium AST ALT Alkaline Phosphatase Lactate Dehydrogenase Troponin T C-Reactive Protein NT-Pro-B Natriuret Pep Total Protein Albumin LDL Cholesterol Direct Vitamin B12 Urine WBC (Auto) Fluid Glucose Fluid Total Protein Vancomycin Trough Crossmatch 01/27/22 01/27/22 00:22 12:48 WBC RBC Hgb Hct MCV MCH MCHC RDW Plt Count Eos % (Auto) Eos # (Auto) Seg Neuts % (Manual) Lymphocytes % (Manual) Seg Neutrophils # Seg Neutrophils # Man Lymphocytes # (Manual) Monocytes # (Manual) PT INR D-Dimer ABG pH ABG pO2 ABG HCO3 ABG O2 Saturation ABG Base Excess ABG Hemoglobin Oxyhemoglobin Sodium Potassium Chloride Carbon Dioxide BUN Creatinine Glucose POC Glucose 107 H 131 H Lactic Acid Calcium Phosphorus Magnesium AST ALT Alkaline Phosphatase Lactate Dehydrogenase Troponin T C-Reactive Protein NT-Pro-B Natriuret Pep Total Protein Albumin LDL Cholesterol Direct Vitamin B12 Urine WBC (Auto) Fluid Glucose Fluid Total Protein Vancomycin Trough Crossmatch Allied health notes reviewed: nursing
[2022-01-27] MEDS: PRAVASTATIN 20 MG TAB FEEDTUBE SCH (22:50)
[2022-01-27] MEDS: MELATONIN 5 MG TAB PO SCH (22:50)
[2022-01-27] MEDS: traZODone 50 MG TAB PO SCH (22:52)
[2022-01-28] MEDS: LEVOTHYROXINE 125 MCG TAB FEEDTUBE SCH (05:07)
[2022-01-28] MEDS: ALPRAZolam 0.5 MG TAB FEEDTUBE PRN (05:07)
[2022-01-28] MEDS: SUCRALFATE 1 GM/10 ML ORAL LIQD FEEDTUBE SCH ×3 (05:07→17:42)
[2022-01-28] MEDS: HYDROcodone/ACETAMINOPHEN 10-325MG TAB FEEDTUBE SCH ×3 (08:30→22:58)
[2022-01-28] MEDS: MIDODRINE 5 MG TAB FEEDTUBE SCH ×3 (08:30→15:27)
[2022-01-28] MEDS: SULFAMETHOXAZOLE/TRIMETHOPRIM 200-40 MG/5 ML ORAL LIQD 30 ML PO SCH (11:33)
[2022-01-28] MEDS: BUMETANIDE 1 MG/4 ML INJ IV SCH (11:33)
[2022-01-28] MEDS: METOPROLOL TARTRATE 25 MG TAB FEEDTUBE SCH ×2 (11:33→23:00)
[2022-01-28] MEDS: LANSOPRAZOLE 30 MG SOLUTAB FEEDTUBE SCH ×2 (11:33→23:01)
[2022-01-28] MEDS: busPIRone 5 MG TAB FEEDTUBE SCH ×2 (11:34→22:59)
[2022-01-28] MEDS: DOCUSATE SODIUM 100 MG/10 ML ORAL LIQD FEEDTUBE SCH ×2 (11:34→23:00)
[2022-01-28] MEDS: QUEtiapine 25 MG TAB FEEDTUBE SCH ×2 (11:34→23:02)
[2022-01-28] MEDS: SPIRONOLACTONE 25 MG TAB FEEDTUBE SCH (11:34)
[2022-01-28] MEDS: POLYETHYLENE GLYCOL 3350 17 GM POWDER FEEDTUBE SCH (11:35)
[2022-01-28] MEDS: SENNOSIDES ORAL LIQD 8.8 MG/5 ML ORAL LIQD FEEDTUBE SCH ×2 (11:35→23:01)
[2022-01-28] MEDS: GABAPENTIN 500 MG/10 ML ORAL LIQD FEEDTUBE SCH (11:35)
--- NOTE | 2022-01-28 12:22 | Progress Note ---
Assessment and Plan Assessment and plan: This is an 82-year-old female with DM, HTN , CHB s/p PPM, CAD s/p PCI and arthritis who presented to the emergency department on 11/04 for shortness of breath ongoing for the past 3 days, cough and according to family a fever of 102.2. Upon arrival of EMS patient was found to be tachypneic and hypoxic with SPO2 of 76% on room air which later improved to 88% on nonrebreather. Work-up in the emergency department included a CXR which showed bilateral interstitial pulmonary edema with bilateral pleural effusions and bibasilar opacities, leukocytosis and anemia with a hemoglobin of 6.1. Patient was admitted to the hospitalist service with acute anemia, acute hypoxic respiratory failure, bilateral pneumonia and COVID-19 PUI with consults to pulmonology, infectious disease and later cardiology. Patient was eventually intubated in the emergency department on 11/06. Hospital Course to date: 11/04/2021: Empiric therapy with iv levaquin/vancomycin. COVID PCR pending. Will consult ID. PCCM consulted, will follow recs. Hypotensive this AM, ordered bolus and fluids at 150 cc/hr. May require pressor support if bp does not improve. 11/05/2021: GBS on bcx +, currently on rocephin IV. Currently on bipap due to respiratory distress overnight. Worsening BL opacities on CXR. May be volume overload vs pneumonia. Unfortunately bp too low for lasix at this point. WIll continue levophed and bipap. Once able to tolerate, may do trial of albumin/lasix. Call attempt made to Niraj, no response. Will try again tomorrow to update. 11/06/2021: Decompensated overnight requiring intubation. CXR shows worsening interstitial infiltrates. Currenlty on dopamine, levophed, vasopressin. PICC line ordered. Advised RN to place gamble for I/O monitoring. Would benefit from diuresis but very volume overloaded. Prognosis guarded 11/08: Off sedation this am, remains unresponsive only grimace to pain. Hold all sedatives agents for now, patient is off pressors this am. Hypernatremia from today's lab- D5W X1bag, and low K repleted, repeat lab in the am. Severe constipation also noted from KUB, BR added. 11/09: Sudden SPO2 drop in the 60s this am. Patient was manually bagged and deep suctioned. Patient is currently stable on the vent, repeat CXR with no significant change. D/w CCM Mucomyst and brochodilator added. Patient mentation is unchanged, continue to hold off on sedative agents. Neurology consulted. 11/10: Acute DVT noted on bilateral lower extremity Doppler ultrasound therefore she was started on Lovenox treatment dose. Failed SBT. Hypernatremia and hyperchloremia noted, free water flush adjusted. 11/11: Patient noted to be febrile with increasing of the cytosis, UA/BC sent and CXR ordered. ID escalated antibiotics to cefepime. CXR demonstrated mucous plug, bedside bronchoscopy was performed and O ETT was changed over bougie from 6 cm to 7.5. Patient was noted to have a pneumothorax postprocedure and chest tube was placed. Family updated by [facility]. Free water flush increased and will add Jaswant supplementation. 11/12: Patient not noted to follow commands, hypernatremia worsen/persist, increasing free water flush, potassium and magnesium and phosphorus repleted. Hemoglobin noted to be 7./24.5 from 7.03/12 yesterday. We will continue to trend and monitor. Vent changes per [facility]. Repeat CXR showed no residual pneumothorax. Consider waterseal tomorrow. Given persistent leukocytosis antibiotics escalated to cefepime per ID. 11/13: Remains on cefepime and vancomycin, vent changes per [facility]. Anemia noted and given 1 unit PRBC. And beta-charleen held in setting of Levophed drip infusing. Remains on fentanyl drip. 11/14: Patient put on CPAP trial by [facility], will continue chest tube until after extubation. Will rest on assist control. CT brain was cancelled by rose grader and reordered. 11/15: Patient removed chest tube overnight. Will obtain cxr. remains on low dose levo. CTH completed with no acute findings. RT to place on CPAP. 11/16: Hypernatremia/hyperchloremia noted on the increase of day water flushes. Anemia noted and ordered PRBC. asked RT to place on cpap but not done yet 11/17: Patient remains on the vent, awake and following commands. H&H stable s/p 2units PRBCs. GI on consult, no intervention at this time. Will continue protonix gtt and serial H&H Q6hrs. Keep patient NPO for now, D5w added for hypernatremia and NPO status. Plan for IVC filter placement today by Vascular. 11/18: Patient is s/p IVC filter. H&H continue to trend down, hbg 6.1 this am, 1 unit of PRBCs ordered. Plan for possible EGD today by GI. Keep patient NPO, continue PPI drip and serial H&H Q6hrs. Electrolytes repleted, repeat lab in the am 11/19: S/p EGD- larger duodenal ulcer noted, see operative note. GI recommendations noted also noted. H&H stable this am. Keep patient on protonix gtt for now. Will keep patient NPO, continue IVF and serial H&H for now. Electrolytes repleted, repeat labs in the am 11/20: Very agitated and restless this am, fentanyl gtt resumed. Patient remains on protonix gtt, H&H remains stable. Will switch protonix gtt to IV BID, continue carafate and okay to resume meds at this time. Will F/u with GI to see if TF can be resumed. Gamble was reinserted overnight for retention. Electrolytes repleted, repeat in the am. Plan for possible PST today for possible extubation per CCM. 11/21: Patient is now on seroquel and patient's home buspar resumed. Patient more calm this morning, fentanyl gtt is off. H&H remains stable and patient is tolerating TF. Patient had a runs of Vtach/PVCs this am, BB added per Cardio. Continue daily PS and wean trial for possible extubation. 11/22: Back on fentanyl gtt overnight , RASS o to -1, following commands. Patient failed PST this am due to increased work of breathing and low SPO2, ABG pending. Patient is also with worsen pitting edema, lasix is still on hold. Will discuss with cardio and CCM to possibly resume lasix. 11/23: MARIA DEL CARMEN overnight. Patient failed PST again this am. Per CCM plan for possible trach and PEG, hold off on IV lasix for now. General surgery consulted and family is aware of possible Trach and PEG. 11/24: Trach/PEG pending this week, continue SBT/SAT as tolerated. No acute events reported overnight. 11/25: Patient was n.p.o. overnight and will remain n.p.o. tonight for trach/PEG tomorrow morning. She failed to support trial again. KUB obtained due to distended belly. 11/26: Patient scheduled for tracheostomy and PEG tube placement today, has been n.p.o. since midnight. No acute events reported overnight. [facility] ordered simethicone scheduled. 11/27: No acute events reported overnight, patient received trach/PEG yesterday. Has been on feedings since last night. Still awaiting LTAC placement. 11/28: Patient magnesium repleted, repeat a.m. labs, SBT 11/29: Patient complains of chest pain but ECG obtained which showed no acute findings, ordered troponin. Patient failed CPAP yesterday and was trialed again today. levophed was restarted but will aggressively wean 11/30: Patient failed SBT. Continue supportive care. Started gabapentin today 12/01: MARIA DEL CARMEN overnight. Continue daily PST. Case management to arrange possible placement 12/02: Report of dark stools overnight, patient is hemodynamically stable. H&H stable, patient is on PPI. Will continue to trend H&H. Continue daily PST as tolerated. Awaiting LTAC vs SNF placement. 12/03: Hypotensive overnight, requiring low dose pressors. S/p X3 days of gentle diurese. Will continue to monitor, wean off pressors as tolerated for MAP of 65. Patient Failed PST yesterday, case management to follow up with insurance for possible LTAC placement. Continue daily PST as tolerated. PT eval and treat ordered. 12/04: Increased agitation and anxiety overnight, remains on buspar and seroquel, trazadone added to promote rest. Patient is now working with PT, keep patient engage and awake during the day so she can rest at night. No BM for over 5 days, BR was adjusted. Patient did not tolerate PST again yesterday, continue daily PST as tolerated. Continue to titrate pressor for MAP above 65. Pending possible LTAC placement, case management to arrange. 12/05: Still not getting much rest overnight, will add melatonin for sleep. Continue to engage patient during the day and promote rest at night. TF was held due to concern for possible bleeding, H&H remains stable and stools normal this am. Resume TF and continue PPI and carafate. Remains on low dose levophed, titrate as tolerated. Continue daily PST. Possible LTAC placement, awaiting approval. 12/06: MARIA DEL CARMEN overnight. Patient rested overnight. Continue supportive measures. Daily PST as tolerated. Awaiting possible LTAC placement 12/07: MARIA DEL CARMEN overnight. Plan for Tpiece trial today. Continue current supportive measures. Possible LTAC placement 12/08: Patient placed on pressure support trial again today, started on Xanax, no acute events reported overnight. Awaiting insurance approval for LTAC. 12/09: Levophed discontinued, LTAC transfer denied, started on midodrine and Lasix, ultrasound chest pending, started on Xanax 0.[address] De León updated family at bedside today. Started on Dilaudid every 3 hours as needed. 12/10: Patient placed on CPAP trial this morning, no acute events reported overnight. Will order ultrasound-guided thoracentesis. 12/11: Patient had a thoracentesis today, will decrease Xanax dosage and continue midodrine and diuresing. Patient failed CPAP today. 12/12: Patient not tolerate CPAP trials today, no acute events reported overnight 12/13: No acute events overnight. continue PSV trials as tolerated. Daughter upd ated at bedside 12/14: Patient noted to be anemic today, ordered gastric occult. Patient seems to be oversedated therefore Xanax changed to as needed and fentanyl patch discontinued. We will continue to monitor hyponatremia. 12/15: MARIA DEL CARMEN overnight. s/p 1unit of PRBCs, H&H stable this am, no signs of any active bleeding. Continue daily PST as tolerated. Awaiting placement. 12/16: Hypertensive this am, Midodrine decreased. Continue daily PST. MARIA DEL CARMEN overnight 12/17: Patient Hgb dropped to 6 this am, no s/s of any active bleeding, VSS. Patient received 1unit of PRBC, will continue to trend H&H. Patient was pancultured and back on IV Abx due to persistent fevers yesterday. ID is also back on the case. Continue IV Abx per ID and f/u on cultures data for sensitivity. Patient also failed PST yesterday, continue daily PST as tolerated. Electrolytes repleted, repeat labs in the am. 12/18: Patient blood cultures is growing GPC 4 out 4 bottles. PICC line D/Rivas, patient is already on IV Abx-cefepine and Vanc and ID is following. Patient remains hemodynamically stable. Daily PST as tolerated adn PRN Benzo for anxiety. 12/19: MARIA DEL CARMEN overnight. Culture data noted, continue IV Abx per ID. Orders placed for repeat Bculture. Gamble D/C overnight, patient is voiding. Check bladder scan as needed for retention. Patient failed PST again today. Continue daily PST as tolerated. 12/20: Fevers improved, Cultures +MRSA, on Vanco per ID. Repeat 2D Echo to r/o endocarditis. Patient continue to fail PST, PEEP increased to 8 today. Continue pulmonary hygiene and vent wean per CCM. Sodium tab added for hyponatremia. 12/22: Patient on pressure support trial for approximately 4 hours today, midodrine dosage increased due to hypotension. Lasix discontinued. 12/23: Started on a.m. Seroquel dose, midodrine increased to 10 mg 3 times daily, 500 mL normal saline bolus. 12/24: Seroquel dose changed (25 every morning, 75 nightly). updated at bedside by Dr. De León. CPAP trials as tolerated. Continue vancomycin. Awaiting placement. 12/25: Continue CPAP as tolerated, added gasx for distention. Continue supportive care 12/26: Patient failed PSV this AM. no acute events overnight. 12/27: GI re-consulted due to abdominal distention. No acute events reported overnight. CPAP trials as tolerated. Dr. Mckenna will get a KUB to rule out possible obstruction. 12/28: KUB shows no acute process, CXR shows improvement. CPAP trials as tolerated. 12/29: CT Abd/pelvis noted with moderated bilateral pleural effusion, anasarca, and ascites. X1dose of IV lasix administered. D/w CCM and GI orders plan for thora and paracentesis by IR. Will also start patient on aldactone Qday. Patient is tolerating trickle feeds this am, continue TF and BR adjusted for constipation. Plan of care was discussed with patient and her at the bedside. Thorough discussion on patient's overall poor prognosis and that eddie ent will most likely be vent dependent. Patient's voiced understanding of the info given. All questions and concerns were voiced at this time. 12/30: Patient did not tolerate thoracentesis in IR yesterday due to change in LOC and hypoxia. Plan for possible bedside thoracentesis and paracentesis today. Patient remains afebrile. 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 Patient remains with sign. Piting edema and anasarca, X1 does of PO Zaroxolyn and 2m of IV lasix given. Electrolytes repleted, repeat lab in the am. 12/31: Tolerated Rt. thoracentesis at the bedside yesterday, 1.4L removed. Patient remains stable on the vent this am, tolerating CPAP today PS dropped to 14. Recent CXR noted, left pleural effusion improved. Patient tolerated gentle diurese yesterday, good urine output reported. D/w CCM hold off on Left thoracentesis today, continue PO Aldactone and additonal zaroxolyn and IV lasix again today. F/u CXR in the am. 01/01: This am CXR noted with worsening bilateral pleural effusion. Patient is stable and tolerating PST this am, however PS is back up to 20 this am. BP is soft this am will hold off on IV diuretic for today, continue PO Aldactone. D/w CCM continue gentle diurese as tolerated. Will reassess in the am. Continue s upport care. 01/02: MARIA DEL CARMEN overnight. VSS this am, tolerating PST. X1dose of 25% IV Albumin following with 20mg IV Lasix today. Continue daily gentle diurese if hemodynamics tolerate it. Continue to monitor and replace electrolytes as needed 01/03: Abdominal distention and vomiting overnight, 600cc of gastric residual removed, TF held. KUB with no acute abnormality. Reglan added X2days, resume TF, and continue BR. Patient is tolerating PST this am. Hemodynamics remains stable, will continue gentle IV diurese. close monitoring to renal function and electrolytes. 01/04: Tolerating TF, nausea/vomiting resolved, last BM on 01/03. Continue Reglan X1 more day. Patient continue to tolerate PST. D/W CCM continue gentle diurese. F/U CXR in the am. Possible US thoracentesis tomorrow. 01/05: no acute events overnight. scheduled for thoracentesis today but procedure pushed to tomorrow. TF restarted and will be NPO post MN. 01/06: planned thoracentesis today. Working with CM for ltac/snf approval. 01/07: s/p thoracentesis 120 cc appears to have been removed. Pulm recommendations noted, agree with continued diuresis and weaning. Continued planning with CM for ltac/snf placement. 01/08: No new issues. Continue vent weaning per pulmonary. Continuing to work with CM for placement. 01/09: No new issues. Continue vent weaning per pulmonary. Continuing to work with CM for placement. Ordered BMP for tomorrow to check kidney function as patient is currently being diuresed. 01/10: No new issues. Continue vent weaning/diuresis as directed by pulmonary medicine.BMP demonstrates normal renal function and potassium. Sodium and Chloride consistent with prior labs. Will recheck BMP in 2 days. Placement continues to be an issue as patient has been denied at all facilities. Will reasses with CM on wednesday. 01/11: Emesis overnight. Do not suspect that she is obstructed as she had 2 BM reported. Will order Reglan prn, drop TF rate to goal of 30 cc/hr. Will continue to work on placement. 01/12: Per RN patient had reported that she was tired and did not want to persist in her current state of health. D/w patient Niraj at patient bedside and stated that I recommended the patient/family at least talk with hospice to get a better understanding of their care. He was agreeable. I spoke with Ms. Busby who will help set up referral for hospice service so that family can be educated and, if the patient chooses, can pursue this option. 01/13: Continue supportive care. Family discussing about hospice. Continue reinforcement and continue weaning as tolerated. Prognosis is guarded and poor. Patient is clinically stable to transfer to the next level of care has not required any escalation in management. Has been stable on the vent awake alert following commands. 01/14: [id number]. Considering abdominal distention tube feedings hold along with the fact that the patient vomited yesterday. Will obtain a CT abdomen and pelvis to further evaluate placement. Discussed with nursing staff. Awaiting to have a family conversation with the for goals of care discussion again. 01/15: Continue supportive care, tube feed was restarted yesterday and tolerated, will start on simethicone for gas control and management. Patient is clinically stable for all lower level of care and continued weaning from the ventilator to appropriate facility. Family still undecided about goals of care. We will also check labs intermittently. 01/16: Patient today went for Chest tube placement on the right side for recurrent pleural effusion, with the goal of evaluating to see if we can wean off the vent. She has remained on the vent and with some persistent anxiety. she continues to tolerate tube feed. Again poor prognosis discussed with family. 01/17: Status post chest tube, with output of approximately 1880 cc since placement. Will continue to work with pulmonology for vent weaning. 01/18: Only tolerated 1 hr of t piece trial yesterday per RT. Patient PaO2 50s on abg last night. Will continue to work with pulmonary medicine for vent weaning. abg, cbc, bmp, xr chest ordered for am. 01/19: On t piece trial this AM. labs reviewed. CXR reviewed and appears stable with no new changes. AB.42/47.8/112.3/30.9. Will follow pulmonary recommendations and plan to continue to wean off of vent. 01/20: Per CM, [facility] declined patient admission as there are T stated the patient was not amenable from the vent. Yesterday patient had tolerated T-piece trial for approximately 12 hours. Today patient only tolerated for 45 minutes. Had desatted and stated that she was in pain during today's trial. Output yesterday from chest tube 1000 cc. Today it is 100 cc thus far. Will obtain chest x-ray tomorrow. 01/21: XR chest demonstrate mild improvement in pulmonary edema. Chest tube OP: 400 cc on 01/20 and 450 cc thus far today. On CPAP trial this am. Hopefully patient can eventually be weaned off of vent. Placement continues to be a challenge as patient has been denied at all facilities thus far, working with CM who has been in frequent contact with [facility]. 01/22: Yesterday the patient had lasted approximately 10 hours on T-piece trial. Output from chest tube approximately 525 cc yesterday. Thus far today patient has had 400 cc. Will follow with pulmonology regarding overall plan for chest tube and weaning patient off ventilator. 01/23: chest tube output 838 cc. Follow pulmonology plan re: chest tube and vent weaning. Placement remains challenging. 01/24: Very fatigue on t - piece trial yesterday afternoon, placed on full MV support. Will re-attempt today poss. Patient will complete Vancomycin course for MRSA tx on Friday 01/26. She has been afebrile sine 01/02. Current barriers to placement are weaning patient off of ventilator and removing chest tube as thus far all facilities have declined the patient. 01/25: AM CXR shows worsening pulmonary edema. On t-piece trial this AM. Patient still continues to have output from chest tube. Will follow pulmonary recs today. 01/26: Difficulty breathing this AM. Chest tube OP approx 1L yesterday. Ordered Albumin due to hypotension noted this AM. Lasix 20 mg IV in addition to po lasix ordered for pulmonary edema. Labs ordered. 01/27: Antibiotics completed for MRSA bacteremia yesterday. Will start po bactrim for suppression per ID recommendation. Remains on MV support this AM. Blood pressure improved..actually hypertensive. Chest tube OP 50 cc yesterday. Metabolic profile noted, BUN slightly elevated but Cr in range. Can continue with lasix diuresis. Will likely need pleurx residential at some point in place of the chest tube. 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 01/28: Continue current ATP to vapotherm, agree with possible pluerex catheter for intermittent drainage/ following review of xray will trial Bumex for diuresis. Poor prognosis. Neuro : Anxiety, chronic pain -Neurology consulted, appreciate recommendations -CT brain showed no acute events -EEG interpreted as abnormal record due to diffuse slowing noted throughout the recording, suggestive of encephalopathic process and/or drug effect, possibilities of postictal state cannot be totally excluded. Clinical correlation is in order -MRI brain not obtained-> patient has metal in her body -Repeat CT head with no acute findings -Reorientation as needed -Ammonia 42, B12 1823, TSH 1.5 -BuSpar, Seroquel, [place], gabapentin -prn xanax and Dilaudid Cardio: Acute Heart failure with reduced EF, h/o chronic heart block s/p PPM, HTN, CAD s/p PCI (2004), Moderate pulmonary HTN, cardiomyopathy -s/p vasopressor support with levophed -11/04 echocardiogram shows EF 30 to 35%, Moderate pulmonary HTN RVSP 49 -12/19 echo with 35-40% EF -Cardiology consulted, appreciate recommendations -Continue beta-charleen and statin therapy -Midodrine (titrate as needed) -Not on aspirin due to allergy -Blood pressure monitoring per protocol -As needed nitroglycerin Resp: Acute hypoxic respiratory failure secondary to bilateral pneumonia, recurrent bilateral pleural effusion s/p rt sided chest tube. Right pneumothorax (resolved). -COVID-19 PCR negative -Intubated on 11/06 with 6.00 ETT at 18 at the lip and changed over bougie on 11/11-7.50 ETT at 20 at the lip -See RT notes for titration -PSV as tolerated -Surgery consult for trach -Received trach/PEG on 11/26 -S/p bedside bronchoscopy on 11/11 complicated by pneumothorax -S/p chest tube placement for right pneumothorax and dislodgment by patient on 11/15 -ABG/CXR per [facility] -VAP bundle -Right chest wall ultrasound showed pleural effusion s/p chest tube -12/11 US thoracentesis removed 1L fluid -12/29 US thoracentesis removed 1.4L fluid -01/06 thoracentesis planned -01/16 right-sided chest tube placed by IR -SPO2 monitoring GI: S/p GI bleed, duodenal ulcer, transaminitis -GI consulted, appreciate recommendations-signed off -Nutrition consult for tube feeding, currently on nepro TF 45 cc/hr, dropped to 30 cc/hr due to concerns for emesis. -BR: Senokot -s/p peg 11/26 -H2 charleen -Carafate -24-hour +428 ml -10/2021 Gastric occult positive -> EGD-> duodenal ulcer -12/14 occult stool positive - reglan prn. : Urinary retention (resolved), hyponatremia, hypochloremia -Strict intake and output -Trend BMP ID: Septic shock (POA-resolved), bilateral pneumonia, MRSA bacteremia/pna -Infectious disease consulted, appreciate recommendations -COVID-19 PCR negative -Presented with fevers, leukocytosis and hypotension -11/04 blood cultures positive with a group B strep bacteremia 12/19 however repeat blood cultures on the with no growth to date -Echo showed no evidence of vegetation -repeat echo showed EF 35-40 % with no vegetations -ABX therapy: IV vancomycin for 4 weeks (12/16-01/26) -Monitor WBC and fever curve -Bedside bronchoscopy for mucous plug on CXR 11/11 -f/u blood cultures Heme: Acute DVT in the right external iliac vein, common femoral vein, superior aspect of femoral vein, Acute microcytic anemia -Evidenced on bilateral upper lower extremity ultrasound -S/p 7 unit PRBC -Trend CBC -Transfuse for hemoglobin less than 7 -heparin gtt dc d/t anemia -S/p IVC filter Endo: h/o DM and hypothyroidism -Continue home Synthroid -SSI -Accu-Cheks every 6 -Avoid hypoglycemia The high probability of a clinically significant, sudden or life threatening deterioration of the [multi] system(s) required my full and direct attention, intervention and personal management. The aggregate critical care time was [60] minutes. This time is in addition to time spent performing reported procedures but includes the following: [x] Data Review and interpretation [x] Patient assessment and monitoring of vital signs [x] Documentation [x] Medication orders and management History Interval history: Patient seen and examined, resting comfortable Hospitalist Physical - Physical exam Narrative exam: VITAL SIGNS: Reviewed. GENERAL: The patient appears normally developed, ATP to vapotherm, vital signs as documented. Frail appearing elderly woman. HEAD: No signs of head trauma. EYES: Pupils are equal. Extraocular motions intact. EARS: Hearing grossly intact. MOUTH: Oropharynx is normal. NECK: No adenopathy, no JVD. Trach to VAPOTHERM CHEST: Bl rhonchi, right sided chest tube CARDIAC: Regular rate and rhythm. S1 and S2, without murmurs, gallops, or rubs. VASCULAR: No Edema. Peripheral pulses normal and equal in all extremities. ABDOMEN: Soft, non tender and mildly distended. No rebound or guarding, and no masses palpated. Bowel Sounds normal. MUSCULOSKELETAL: Good range of motion of all major joints. Extremities without clubbing, cyanosis or edema. NEUROLOGIC EXAM: Alert and oriented x 3. No focal sensory or strength deficits. PSYCHIATRIC: stable SKIN: detail exam as documented in skin assessment - Constitutional Vitals: Temp Pulse Resp BP Pulse Ox 97.5 F L 64 17 148/72 97 01/28/22 12:00 01/28/22 12:00 01/28/22 12:00 01/28/22 12:00 01/28/22 12:00 General appearance: Present: no acute distress HEART Score - HEART Score Troponin: Troponin T 0.078 ng/mL (0.00-0.029) H 01/15/22 Unknown Results - Labs CBC & Chem 7: 01/26/22 10:16 01/26/22 10:16 Labs: Laboratory Last Values WBC 12.7 K/mm3 (4.5-11.0) H 01/26/22 10:16 RBC 3.74 M/mm3 (3.65-5.03) 01/26/22 10:16 Hgb 9.9 gm/dl (10.1-14.3) L 01/26/22 10:16 Hct 31.1 % (30.3-42.9) 01/26/22 10:16 MCV 83 fl (79-97) 01/26/22 10:16 MCH 27 pg (28-32) L 01/26/22 10:16 MCHC 32 % (30-34) 01/26/22 10:16 RDW 18.3 % (13.2-15.2) H 01/26/22 10:16 Plt Count 269 K/mm3 (140-440) 01/26/22 10:16 Lymph % (Auto) 25.6 % (13.4-35.0) 01/26/22 10:16 Upson % (Auto) 4.5 % (0.0-7.3) 01/26/22 10:16 Eos % (Auto) 4.5 % (0.0-4.3) H 01/26/22 10:16 Baso % (Auto) 0.7 % (0.0-1.8) 01/26/22 10:16 Lymph # (Auto) 3.2 K/mm3 (1.2-5.4) 01/26/22 10:16 Upson # (Auto) 0.6 K/mm3 (0.0-0.8) 01/26/22 10:16 Eos # (Auto) 0.6 K/mm3 (0.0-0.4) H 01/26/22 10:16 Baso # (Auto) 0.1 K/mm3 (0.0-0.1) 01/26/22 10:16 Add Manual Diff Complete 01/19/22 04:50 Total Counted 100 01/15/22 14:36 Seg Neutrophils % 64.7 % (40.0-70.0) 01/26/22 10:16 Seg Neuts % (Manual) 82.0 % (40.0-70.0) H 01/15/22 14:36 Band Neutrophils % 0 % 01/15/22 14:36 Lymphocytes % (Manual) 11.0 % (13.4-35.0) L 01/15/22 14:36 Reactive Lymphs % (Man) 0 % 01/15/22 14:36 Monocytes % (Manual) 5.0 % (0.0-7.3) 01/15/22 14:36 Eosinophils % (Manual) 1.0 % (0.0-4.3) 01/15/22 14:36 Basophils % (Manual) 1.0 % (0.0-1.8) 01/15/22 14:36 Metamyelocytes % 0 % 01/15/22 14:36 Myelocytes % 0 % 01/15/22 14:36 Promyelocytes % 0 % 01/15/22 14:36 Blast Cells % 0 % 01/15/22 14:36 Nucleated RBC % Not Reportable 01/15/22 14:36 Seg Neutrophils # 8.2 K/mm3 (1.8-7.7) H 01/26/22 10:16 Seg Neutrophils # Man 8.8 K/mm3 (1.8-7.7) H 01/15/22 14:36 Band Neutrophils # 0.0 K/mm3 01/15/22 14:36 Lymphocytes # (Manual) 1.2 K/mm3 (1.2-5.4) 01/15/22 14:36 Abs React Lymphs (Man) 0.0 K/mm3 01/15/22 14:36 Monocytes # (Manual) 0.5 K/mm3 (0.0-0.8) 01/15/22 14:36 Eosinophils # (Manual) 0.1 K/mm3 (0.0-0.4) 01/15/22 14:36 Basophils # (Manual) 0.1 K/mm3 (0.0-0.1) 01/15/22 14:36 Metamyelocytes # 0.0 K/mm3 01/15/22 14:36 Myelocytes # 0.0 K/mm3 01/15/22 14:36 Promyelocytes # 0.0 K/mm3 01/15/22 14:36 Blast Cells # 0.0 K/mm3 01/15/22 14:36 WBC Morphology Not Reportable 01/15/22 14:36 Hypersegmented Neuts Not Reportable 01/15/22 14:36 Hyposegmented Neuts Not Reportable 01/15/22 14:36 Hypogranular Neuts Not Reportable 01/15/22 14:36 Smudge Cells Not Reportable 01/15/22 14:36 Toxic Granulation Not Reportable 01/15/22 14:36 Toxic Vacuolation Not Reportable 01/15/22 14:36 Dohle Bodies Not Reportable 01/15/22 14:36 Pelger-Huet Anomaly Not Reportable 01/15/22 14:36 Irina Rods Not Reportable 01/15/22 14:36 Platelet Estimate Consistent w auto 01/15/22 14:36 Clumped Platelets Not Reportable 01/15/22 14:36 Plt Clumps, EDTA Not Reportable 01/15/22 14:36 Large Platelets Not Reportable 01/15/22 14:36 Giant Platelets Not Reportable 01/15/22 14:36 Platelet Satelliting Not Reportable 01/15/22 14:36 Plt Morphology Comment Not Reportable 01/15/22 14:36 RBC Morphology Not Reportable 01/15/22 14:36 Dimorphic RBCs Not Reportable 01/15/22 14:36 Polychromasia Not Reportable 01/15/22 14:36 Hypochromasia Not Reportable 01/15/22 14:36 Poikilocytosis Not Reportable 01/15/22 14:36 Anisocytosis 1+ 01/15/22 14:36 Microcytosis Not Reportable 01/15/22 14:36 Macrocytosis Not Reportable 01/15/22 14:36 Spherocytes Not Reportable 01/15/22 14:36 Pappenheimer Bodies Not Reportable 01/15/22 14:36 Sickle Cells Not Reportable 01/15/22 14:36 Target Cells Not Reportable 01/15/22 14:36 Tear Drop Cells Not Reportable 01/15/22 14:36 Ovalocytes Not Reportable 01/15/22 14:36 Helmet Cells Not Reportable 01/15/22 14:36 Odonnell-[place] Bodies Not Reportable 01/15/22 14:36 Underwood Rings Not Reportable 01/15/22 14:36 [place] Cells Not Reportable 01/15/22 14:36 Bite Cells Not Reportable 01/15/22 14:36 Crenated Cell Not Reportable 01/15/22 14:36 Elliptocytes Not Reportable 01/15/22 14:36 Acanthocytes (Spur) Not Reportable 01/15/22 14:36 Rouleaux Not Reportable 01/15/22 14:36 Hemoglobin C Crystals Not Reportable 01/15/22 14:36 Schistocytes Not Reportable 01/15/22 14:36 Malaria parasites Not Reportable 01/15/22 14:36 Godfrey Bodies Not Reportable 01/15/22 14:36 Hem Pathologist Commnt No 01/15/22 14:36 PT 16.9 Sec. (12.2-14.9) H 01/06/22 04:06 INR 1.23 (0.87-1.13) H 01/06/22 04:06 APTT 29.2 Sec. (24.2-36.6) 11/26/21 05:00 D-Dimer 2655.00 ng/mlDDU (0-234) H 11/11/21 04:28 ABG pH 7.488 pH Units (7.350-7.450) H 01/25/22 12:20 ABG pCO2 38.2 mm Hg 01/25/22 12:20 ABG pO2 58.9 mm Hg (80.0-90.0) L 01/25/22 12:20 ABG HCO3 28.3 mmol/L (20.0-26.0) H 01/25/22 12:20 ABG O2 Saturation 94.9 % (95.0-99.0) L 01/25/22 12:20 ABG O2 Content 11.4 (0.0-44) 01/25/22 12:20 ABG Base Excess 4.7 mmol/L (-2.0-3.0) H 01/25/22 12:20 ABG Hemoglobin 8.7 gm/dl (12.0-16.0) L 01/25/22 12:20 ABG Carboxyhemoglobin 1.8 % (0.0-5.0) 01/25/22 12:20 ABG Methemoglobin 0.5 % (0.0-1.5) 01/25/22 12:20 Oxyhemoglobin 92.7 % (95.0-99.0) L 01/25/22 12:20 FiO2 35 % 01/25/22 12:20 Sodium 138 mmol/L (137-145) 01/26/22 10:16 Potassium 3.6 mmol/L (3.6-5.0) 01/26/22 10:16 Chloride 96.6 mmol/L (98-107) L 01/26/22 10:16 Carbon Dioxide 29 mmol/L (22-30) 01/26/22 10:16 Anion Gap 16 mmol/L 01/26/22 10:16 BUN 29 mg/dL (7-17) H 01/26/22 10:16 Creatinine 0.6 mg/dL (0.6-1.2) 01/26/22 10:16 Estimated GFR > 60 ml/min 01/26/22 10:16 BUN/Creatinine Ratio 48 % 01/26/22 10:16 Glucose 140 mg/dL (65-100) H 01/26/22 10:16 POC Glucose 97 mg/dL (70-105) 01/28/22 11:21 Lactic Acid 3.70 mmol/L (0.7-2.0) H* 11/03/21 22:32 Calcium 9.5 mg/dL (8.4-10.2) 01/26/22 10:16 Phosphorus 4.00 mg/dL (2.5-4.5) 01/26/22 10:16 Magnesium 1.70 mg/dL (1.7-2.3) 01/26/22 10:16 Ferritin 52.6 ng/mL (10.0-200.0) 11/05/21 06:11 Total Bilirubin 0.50 mg/dL (0.1-1.2) 11/17/21 05:56 Direct Bilirubin < 0.2 mg/dL (0-0.2) 11/11/21 04:28 Indirect Bilirubin 0.1 mg/dL 11/11/21 04:28 AST 36 units/L (5-40) 11/17/21 05:56 ALT 47 units/L (7-56) 11/17/21 05:56 Alkaline Phosphatase 107 units/L (35-129) 11/17/21 05:56 Ammonia 42.0 umol/L (25-60) 11/10/21 14:08 Lactate Dehydrogenase 187 units/L (91-180) H 11/05/21 06:11 Troponin T 0.078 ng/mL (0.00-0.029) H 01/15/22 Unknown C-Reactive Protein 22.20 mg/dL (0.00-1.30) H 11/05/21 06:11 NT-Pro-B Natriuret Pep 7895 pg/mL (0-900) H 11/03/21 22:32 Total Protein 5.1 g/dL (6.3-8.2) L 11/17/21 05:56 Albumin 2.2 g/dL (3.9-5) L 11/17/21 05:56 Albumin/Globulin Ratio 0.8 % 11/17/21 05:56 Triglycerides 72 mg/dL (2-149) 01/15/22 21:07 Cholesterol 103 mg/dL (50-199) 01/15/22 21:07 LDL Cholesterol Direct 44 mg/dL (50-130) L 01/15/22 21:07 HDL Cholesterol 46 mg/dL (40-59) 01/15/22 21:07 Cholesterol/HDL Ratio 2.23 % 01/15/22 21:07 Vitamin B12 1823 pg/mL (211-911) H 11/10/21 14:08 TSH 1.510 mlU/mL (0.270-4.200) 11/10/21 14:08 Urine Color Shamika (Yellow) 01/23/22 09:36 Urine Turbidity Turbid (Clear) 01/23/22 09:36 Urine pH 7.0 (5.0-7.0) 01/23/22 09:36 Ur Specific [place] 1.011 (1.003-1.030) 01/23/22 09:36 Urine Protein <15 mg/dl mg/dL (Negative) 01/23/22 09:36 Urine Glucose (UA) Neg mg/dL (Negative) 01/23/22 09:36 Urine Ketones Neg mg/dL (Negative) 01/23/22 09:36 Urine Blood Sm (Negative) 01/23/22 09:36 Urine Nitrite Neg (Negative) 01/23/22 09:36 Urine Bilirubin Neg (Negative) 01/23/22 09:36 Urine Urobilinogen 2.0 mg/dL (<2.0) 01/23/22 09:36 Ur Leukocyte Esterase Lg (Negative) 01/23/22 09:36 Urine WBC (Auto) 16.0 /HPF (0.0-6.0) H 01/23/22 09:36 Urine RBC (Auto) 32.0 /HPF (0.0-6.0) 01/23/22 09:36 U Epithel Cells (Auto) 1.0 /HPF (0-13.0) 01/23/22 09:36 Urine Bacteria (Auto) 4+ /HPF (Negative) 01/23/22 09:36 Urine Mucus Few /HPF 01/23/22 09:36 Urine Yeast (Budding) 3+ /HPF 01/23/22 09:36 Urine Sperm Few /HPF ([employer] PROFESSIONAL) 01/23/22 09:36 Fluid Type Pleural 01/06/22 13:40 Fluid Color Yellow 01/06/22 13:40 Fluid Appearance Hazy 01/06/22 13:40 Fluid WBC 273 /mm3 01/06/22 13:40 Fluid RBC 45 /mm3 01/06/22 13:40 Fluid Seg Neutrophils 47.0 % 01/06/22 13:40 Fluid Lymphocytes 22.0 % 01/06/22 13:40 Fluid Monocytes 10.0 % 01/06/22 13:40 Fluid Eosinophils 19.0 % 01/06/22 13:40 Fluid Basophils 2.0 % 01/06/22 13:40 Fluid Glucose 96 mg/dL (40-70) H 01/06/22 13:40 Fluid Total Protein < 3.0 (15.0-45.0) L 01/06/22 13:40 Fluid LDH 149 01/06/22 13:40 Vancomycin Trough 11.8 ug/mL (5.0-20.0) 01/22/22 10:14 Random Vancomycin 10.5 ug/mL (0-40.0) 01/04/22 05:00 Coronavirus (PCR) Negative (Negative) 11/10/21 08:30 Blood Type O POSITIVE 12/14/21 10:30 Antibody Screen Negative 12/14/21 10:30 Crossmatch See Detail 12/14/21 10:30 Gamble/IV: Voiding Method External Female Catheter Active Medications - Current Medications Current Medications: Generic Name Dose Route Start Last Admin Trade Name Freq PRN Reason Stop Dose Admin Acetaminophen 650 mg 12/14/21 04:12 01/26/22 03:19 Acetaminophen 325 Mg/10.15 Ml Oral Liqd Unit Dose FEEDTUBE 650 mg Q6H PRN Administration Non Cardiac Pain or Temp>100.5 Hydrocodone Bitart/Acetaminophen 1 each 11/21/21 10:00 01/28/22 08:30 Hydrocodone/Acetaminophen 10-325mg Tab FEEDTUBE 1 each TID YOSSI Administration Alprazolam 0.25 mg 01/22/22 03:00 01/28/22 05:07 Alprazolam 0.5 Mg Tab FEEDTUBE 0.25 mg Q8H PRN Administration Agitation Lipase/Protease/Amylase 1 each 11/08/21 11:09 Lipase 10,500/Protease 25,000/Amylase 43,750 (Units) Dr Lema FEEDTUBE PRN PRN For Clogged Feeding Tube Bumetanide 1 mg 01/28/22 10:00 01/28/22 11:33 Bumetanide 1 Mg/4 Ml Inj IV 01/31/22 09:59 1 mg DAILY YOSSI Administration Buspirone HCl 7.5 mg 12/30/21 10:00 01/28/22 11:34 Buspirone 5 Mg Tab FEEDTUBE 7.5 mg BID YOSSI Administration Dextrose 50 ml 01/16/22 14:00 Dextrose 50% In Water (25gm) 50 Ml Syringe IV Q30MIN PRN Hypoglycemia Protocol Docusate Sodium 100 mg 12/30/21 10:00 01/28/22 11:34 Docusate Sodium 100 Mg/10 Ml Oral Liqd FEEDTUBE Not Given BID YOSSI Gabapentin 100 mg 01/22/22 10:00 01/28/22 11:35 Gabapentin 500 Mg/10 Ml Oral Liqd FEEDTUBE 100 mg QDAY YOSSI Administration Hydrophilic Ointment 1 applic 11/06/21 04:02 Lip Therapy Vaseline TP Q2HR PRN Dry Lips Lansoprazole 30 mg 11/24/21 22:00 01/28/22 11:33 Lansoprazole 30 Mg Solutab FEEDTUBE 30 mg BID YOSSI Administration Levothyroxine Sodium 125 mcg 12/31/21 06:00 01/28/22 05:07 Levothyroxine 125 Mcg Tab FEEDTUBE 125 mcg DAILY@0600 YOSSI Administration Melatonin 5 mg 12/05/21 22:00 01/27/22 22:50 Melatonin 5 Mg Tab PO 5 mg QHS YOSSI Administration Metoclopramide HCl 10 mg 01/11/22 13:25 01/21/22 21:43 Metoclopramide 10 Mg/2 Ml Inj IV 10 mg Q6H PRN Administration Nausea And Vomiting Metoprolol Tartrate 6.25 mg 12/30/21 10:00 01/28/22 11:33 Metoprolol Tartrate 25 Mg Tab FEEDTUBE 6.25 mg BID YOSSI Administration Midodrine 10 mg 01/21/22 08:00 01/28/22 08:30 Midodrine 5 Mg Tab FEEDTUBE 10 mg TID@0800,1200,1600 [facility] Administration Multi-Ingred Cream/Lotion/Oil/Oint 1 applic 11/06/21 04:02 Mineral Oil/Petrolatum, White Ophth Oint 3.5 Gm OU Q4HR PRN Dry Eye(s) Ondansetron HCl 4 mg 12/05/21 10:00 01/20/22 22:10 Ondansetron 4 Mg/2 Ml Inj IV 4 mg Q8H PRN Administration Nausea And Vomiting Polyethylene Glycol 17 gm 12/30/21 10:00 01/28/22 11:35 Polyethylene Glycol 3350 17 Gm Powder FEEDTUBE Not Given QDAY YOSSI Pravastatin Sodium 20 mg 12/30/21 22:00 01/27/22 22:50 Pravastatin 20 Mg Tab FEEDTUBE 20 mg QHS YOSSI Administration Quetiapine Fumarate 25 mg 12/30/21 10:00 01/28/22 11:34 Quetiapine 25 Mg Tab FEEDTUBE 25 mg QAM YOSSI Administration Quetiapine Fumarate 50 mg 12/30/21 22:00 01/27/22 22:50 Quetiapine 25 Mg Tab FEEDTUBE 50 mg QHS [facility] Administration Senna 17.6 mg 12/29/21 11:00 01/28/22 11:35 Sennosides Oral Liqd 8.8 Mg/5 Ml Oral Liqd FEEDTUBE Not Given Q12HR YOSSI Simethicone 80 mg 01/15/22 15:06 01/15/22 21:10 Simethicone 80 Mg Chew Tab PO 80 mg PC PRN Administration Gas pain Simple Syrup 15 ml 11/08/21 11:09 Simple Syrup 15 Ml FEEDTUBE PRN PRN Hypoglycemia Simple Syrup 30 ml 11/08/21 11:09 Simple Syrup 15 Ml FEEDTUBE PRN PRN Hypoglycemia Sodium Bicarbonate 325 mg 11/08/21 11:09 01/09/22 20:25 Sodium Bicarbonate 325 Mg Tab FEEDTUBE 325 mg PRN PRN Administration For Clogged Feeding Tube Sodium Chloride 10 ml 11/04/21 10:00 01/28/22 11:35 Sodium Chloride 0.9% 10 Ml Flush Syringe IV 10 ml BID YOSSI Administration Sodium Chloride 10 ml 11/04/21 02:03 01/09/22 06:35 Sodium Chloride 0.9% 10 Ml Flush Syringe IV 10 ml PRN PRN Administration LINE FLUSH Spironolactone 25 mg 12/30/21 10:00 01/28/22 11:34 Spironolactone 25 Mg Tab FEEDTUBE 25 mg QDAY YOSSI Administration Sucralfate 1 gm 12/30/21 12:00 01/28/22 11:33 Sucralfate 1 Gm/10 Ml Oral Liqd FEEDTUBE 1 gm Q6HR YOSSI Administration Trazodone HCl 50 mg 12/04/21 22:00 01/27/22 22:52 Trazodone 50 Mg Tab PO 50 mg QHS YOSSI Administration Trimethoprim/Sulfamethoxazole 160 mg 01/27/22 13:00 01/28/22 11:33 Sulfamethoxazole/Trimethoprim 200-40 Mg/5 Ml Oral Liqd 30 Ml PO 160 mg Q24HR YOSSI Administration Protocol Nutrition/Malnutrition Assess - Dietary Evaluation Nutrition/Malnutrition Findings: Nutrition Notes Start: 11/04/21 17:16 Freq: Status: Active Protocol: Document 01/26/22 14:39 YOVANI (Rec: 01/26/22 14:45 VISHALALL [id number]) Nutrition Notes Initial or Follow up Reassessment Current Diagnosis Coronary Artery Disease, Diabetes,Hypertension,Heart Failure,Respiratory Failure Other Pertinent Diagnosis Bilat pleural effusion Current Diet TF - Vital AF 1.2 at 35ml/hr Labs/Tests Reviewed Pertinent Medications 25% Human albumin x 1 dose, Lasix x 1 dose Height 5 ft Weight 62.6 kg [place] Body Weight (kg) 45.45 BMI 26.9 Weight Status Overweight Subjective/Other Information Pt tolerating TF at goal rate. Pt remains on T-piece trials , however, was on vent support at time of visit today; chest tube still in place with substantial output. Percent of energy/protein needs met: 84% energy and pro Burn Absent Trauma Absent #2 Nutrition Diagnosis Inadequate enteral nutrition infusion #1 Nutrition Diagnosis Inadequate oral intake Diagnosis Progress(for reassessment Continues documentation) Is patient on ventilator? Yes Is Patient Ambulatory and/or Out of Bed No REE-([facility]-confined to bed) 1210.212 Calculation Used for Recommendations [facility] Additional Notes Pro needs 1.2-2g/k-125g/ day Fluid needs 1ml/kcal Nutrition Intervention Nutrition Support: Continue Vital AF 1.2 at 35ml/ hr with 50ml water flush q4h. Kcal 1,008 Protein (gm) 63 Carbohydrates (gm) 45 Fat (gm) 45 Fluid (mL) 681 Fiber (gm) 4 Add Supplement/Snack (indicate name/kcal Jaswant BID /protein ) Provides kCal: 190 Provides Protein (gm) 5 Goal #1 TF tolerance Goal #2 TF to meet at least 75% energy and pro needs Goal #3 Wound healing Follow-Up By: 02/02/22 Additional Comments F/U: stable TF, wt, vent status, wound healing/Jaswant administration
--- NOTE | 2022-01-28 14:39 | Progress Note ---
Assessment and Plan 81-year-old female with known history of diabetes mellitus, hypertension and arthritis brought to the emergency room via EMS for shortness of breath which has been ongoing for the past 3 days prior to come to the emergency room. Patient has been having some cough and shortness of breath. According to patient's , patient has also been having a fever of about 102.2 F. Upon arrival of EMS patient was found to be tachypneic with O2 saturation of 76% on room air which later improved to 88% on nonrebreather. Work-up in the emergency room , chest x-ray shows bilateral interstitial pulmonary edema with bilateral pleural effusions.. Bibasilar opacities which favors atelectasis. Lab reveals leukocytosis of 29. Hemoglobin of 6.1. Patient received blood transfusion and also checked for COVID-19. Patient Ivy virus test reported negative. Patient intubated and placed on mechanical ventilation. Patient transfered to ICU. Patient undergone thoracentesis and chest tube placement. Patient still on mechanical ventilation. Patient transfered to [facility]. Patient sleeping . Resting on T tube , Vapotherm high flow oxygen , Flow rate 35 attached to T tube. O2 saturation 98%.Tolerating T tube good . No acute respiratory distress. ABG on FIO2 35% ABG pH 7.488 pH Units (7.350-7.450) H 01/25/22 12:20 ABG pCO2 38.2 mm Hg 01/25/22 12:20 ABG pO2 58.9 mm Hg (80.0-90.0) L 01/25/22 12:20 ABG O2 Saturation 94.9 % (95.0-99.0) L 01/25/22 12:20 PT/INR, D-dimer Patient afebrile. Has leukocytosis.Blood pressure 137/63, Pulse 67 , respirations 29 Patients recent HGB 9.9 01/26/22 Chest xray 12/11/21 reported Diffuse bilateral pulmonary opacities most significant in the left lung and right upper lung .No pneumothorax. Chest xray done 01/01/22 reported Worsening bilateral pulmonary opacities and effusions Chest xray 01/05/22 reported Diffuse bilateral pleuroparenchymal opacities, right greater than left, are similar to the prior exam. No pneumothorax. Patient undergone thoracentesis under Ultrasound guidance. Repeat chest xray post thoracentesis 01/06/22 reported Near complete evacuation of the right pleural effusion. No pneumothorax. Pleural fluid cell count wbc 273, RBC 45 Pleural fluid chemistry Protein less than 3, [id number], Glucose 96. Pleural fluid is transudate. Repeat chest xray 01/16/22 reported Diffuse bilateral pulmonary opacities and effusions. Right PICC line tip overlies distal SVC. Small right chest tube is noted without large pneumothorax Chest xray done 01/19/22 reported stable diffuse bilateral interstitial infiltrates and small effusions. Chest xray 01/21/22 reported Mildly improved pulmonary edema and bilateral pleural effusions. No pneumothorax. Chest xray done 01/25/22 reported Moderate-sized left and trace right pleural effusions with patchy underlying airspace disease in the lungs. Patient is on Bactrim, Prevacid and Sucralfate. Recommend SCDs. Patient is on tube feeding. I spent critical care time of 35 minutes, reviewing the chart, examine the patient, review lab results, chest xray and talk to respiratory therapy and nursing staff and work out plan of treatment in this critically ill patient. - Patient Problems (1) Acute respiratory failure with hypoxia Current Visit: Yes Status: Acute Plan to address problem: On T tube, Attached to High flow O2, Vapotherm flow rate 35 Litres. Continue Prevacid. SCDs. (2) Bilateral pneumonia Current Visit: Yes Status: Acute Plan to address problem: Patient is on Bactrim (3) Occult blood positive stool Current Visit: Yes Status: Acute Plan to address problem: Management as per gastroenterology. (4) Acute anemia Current Visit: Yes Status: Acute Plan to address problem: Patient received blood transfusion. HGB 9.9 on 01/26/22. (5) Suspected COVID-19 virus infection Current Visit: Yes Status: Acute Plan to address problem: Ivy virus PCR negative. (6) Pleural effusion Current Visit: Yes Status: Acute Plan to address problem: Patient unergone right thoracentesis under ultrasound guidance. Post thoracentesis chest xray reported Near complete evacuation of the right pleural effusion. No pneumothorax. Pleural fluid cell count wbc 273, RBC 45 Pleural fluid chemistry Protein less than 3, [id number], Glucose 96. Pleural fluid is transudate. Subjective Date of service: 01/28/22 Principal diagnosis: Septic shock; AHRF; Anemia; Pneumonia; pleural effusion; HFrEF; Pulm HTN Interval history: 81-year-old female with known history of diabetes mellitus, hypertension and arthritis brought to the emergency room via EMS for shortness of breath which has been ongoing for the past 3 days prior to come to the emergency room. Patient has been having some cough and shortness of breath. According to patient's , patient has also been having a fever of about 102.2 F. Upon arrival of EMS patient was found to be tachypneic with O2 saturation of 76% on room air which later improved to 88% on nonrebreather. Work-up in the emergency room , chest x-ray shows bilateral interstitial pulmonary edema with bilateral pleural effusions.. Bibasilar opacities which favors atelectasis. Lab reveals leukocytosis of 29. Hemoglobin of 6.1. Patient received blood transfusion and also checked for COVID-19. Patient Ivy virus test reported negative. Patient intubated and placed on mechanical ventilation. Patient transfered to ICU. Patient undergone thoracentesis and chest tube placement. Patient still on mechanical ventilation. Patient transfered to [facility]. Patient sleeping . Resting on T tube , Vapotherm high flow oxygen , Flow rate 35 attached to T tube. O2 saturation 98%.Tolerating T tube good . No acute respiratory distress. ABG on FIO2 35% ABG pH 7.488 pH Units (7.350-7.450) H 01/25/22 12:20 ABG pCO2 38.2 mm Hg 01/25/22 12:20 ABG pO2 58.9 mm Hg (80.0-90.0) L 01/25/22 12:20 ABG O2 Saturation 94.9 % (95.0-99.0) L 01/25/22 12:20 PT/INR, D-dimer Patient afebrile. Has leukocytosis.Blood pressure 137/63, Pulse 67 , respirations 29 Patients recent HGB 9.9 01/26/22 Chest xray 12/11/21 reported Diffuse bilateral pulmonary opacities most significant in the left lung and right upper lung .No pneumothorax. Chest xray done 01/01/22 reported Worsening bilateral pulmonary opacities and effusions Chest xray 01/05/22 reported Diffuse bilateral pleuroparenchymal opacities, right greater than left, are similar to the prior exam. No pneumothorax. Patient undergone thoracentesis under Ultrasound guidance. Repeat chest xray post thoracentesis 01/06/22 reported Near complete evacuation of the right pleural effusion. No pneumothorax. Pleural fluid cell count wbc 273, RBC 45 Pleural fluid chemistry Protein less than 3, [id number], Glucose 96. Pleural fluid is transudate. Repeat chest xray 01/16/22 reported Diffuse bilateral pulmonary opacities and effusions. Right PICC line tip overlies distal SVC. Small right chest tube is noted without large pneumothorax Chest xray done 01/19/22 reported stable diffuse bilateral interstitial infiltrates and small effusions. Chest xray 01/21/22 reported Mildly improved pulmonary edema and bilateral pleural effusions. No pneumothorax. Chest xray done 01/25/22 reported Moderate-sized left and trace right pleural effusions with patchy underlying airspace disease in the lungs. Patient is on Bactrim, Prevacid and Sucralfate . Recommend SCDs. Patient is on tube feeding. Objective Vital Signs - 12hr 01/28/22 01/28/22 01/28/22 03:00 04:00 05:00 Temperature 98.7 F Pulse Rate 65 66 67 Pulse Rate [ From Monitor] Respiratory 11 L 17 14 Rate Blood Pressure 151/79 163/76 158/82 O2 Sat by Pulse 96 99 98 Oximetry O2 Sat by Pulse Oximetry [ Assessment] 01/28/22 01/28/22 01/28/22 05:49 06:00 07:01 Temperature Pulse Rate 67 75 Pulse Rate [ From Monitor] Respiratory 20 13 Rate Blood Pressure 153/66 153/54 O2 Sat by Pulse 100 95 Oximetry O2 Sat by Pulse 98 Oximetry [ Assessment] 01/28/22 01/28/22 01/28/22 08:00 09:00 09:30 Temperature 97.6 F Pulse Rate 66 76 Pulse Rate [ 65 From Monitor] Respiratory 16 29 H Rate Blood Pressure 145/62 161/80 O2 Sat by Pulse 97 96 Oximetry O2 Sat by Pulse 98 Oximetry [ Assessment] 01/28/22 01/28/22 01/28/22 10:00 11:00 11:33 Temperature Pulse Rate 61 66 62 Pulse Rate [ From Monitor] Respiratory 18 22 Rate Blood Pressure 132/60 145/79 145/79 O2 Sat by Pulse 97 100 Oximetry O2 Sat by Pulse Oximetry [ Assessment] 01/28/22 01/28/22 11:34 12:00 Temperature 97.5 F L Pulse Rate 62 66 Pulse Rate [ 68 From Monitor] Respiratory 17 Rate Blood Pressure 145/79 148/72 O2 Sat by Pulse 97 Oximetry O2 Sat by Pulse Oximetry [ Assessment] Constitutional: no acute distress, alert Eyes: non-icteric ENT: oropharynx moist, other (+ Midline tracheostomy with minimal secretions) Neck: supple, no lymphadenopathy, no JVD Effort: normal, mildly labored Ascultation: Bilateral: diminished breath sounds, rhonchi Percussion: Right: not dull, Left: dull (bases) Cardiovascular: regular rate and rhythm, other (S1,S2) Gastrointestinal: normoactive bowel sounds, soft, non-tender, non-distended (protuberant) Integumentary: normal Extremities: no cyanosis, pink and warm, pulses normal, edema (upper etremities), anasarca Neurologic: non-focal exam (grossly), pupils equal and round, CN II-XII normal Psychiatric: affect normal CBC and BMP: 01/26/22 10:16 01/29/22 04:40 ABG, PT/INR, D-dimer: ABG ABG pH 7.488 pH Units (7.350-7.450) H 01/25/22 12:20 ABG pCO2 38.2 mm Hg 01/25/22 12:20 ABG pO2 58.9 mm Hg (80.0-90.0) L 01/25/22 12:20 ABG O2 Saturation 94.9 % (95.0-99.0) L 01/25/22 12:20 PT/INR, D-dimer PT 16.9 Sec. (12.2-14.9) H 01/06/22 04:06 INR 1.23 (0.87-1.13) H 01/06/22 04:06 D-Dimer 2655.00 ng/mlDDU (0-234) H 11/11/21 04:28 Abnormal lab findings: Abnormal Labs 11/03/21 11/03/21 11/03/21 22:32 22:32 22:32 WBC 29.3 H RBC 2.93 L Hgb 6.1 L Hct 21.9 L MCV 75 L MCH 21 L MCHC 28 L RDW 19.7 H Plt Count Eos % (Auto) Eos # (Auto) Seg Neuts % (Manual) 97.0 H Lymphocytes % (Manual) 3.0 L Seg Neutrophils # Seg Neutrophils # Man 28.4 H Lymphocytes # (Manual) 0.9 L Monocytes # (Manual) PT 18.6 H INR 1.40 H D-Dimer ABG pH ABG pO2 ABG HCO3 ABG O2 Saturation ABG Base Excess ABG Hemoglobin Oxyhemoglobin Sodium Potassium Chloride Carbon Dioxide 20 L BUN 33 H Creatinine Glucose 119 H POC Glucose Lactic Acid Calcium 8.3 L Phosphorus Magnesium AST ALT Alkaline Phosphatase Lactate Dehydrogenase Troponin T 0.035 H C-Reactive Protein NT-Pro-B Natriuret Pep Total Protein Albumin LDL Cholesterol Direct 34 L Vitamin B12 Urine WBC (Auto) Fluid Glucose Fluid Total Protein Vancomycin Trough Crossmatch 11/03/21 11/03/21 11/03/21 22:32 22:32 23:57 WBC RBC Hgb Hct MCV MCH MCHC RDW Plt Count Eos % (Auto) Eos # (Auto) Seg Neuts % (Manual) Lymphocytes % (Manual) Seg Neutrophils # Seg Neutrophils # Man Lymphocytes # (Manual) Monocytes # (Manual) PT INR D-Dimer ABG pH ABG pO2 ABG HCO3 ABG O2 Saturation ABG Base Excess ABG Hemoglobin Oxyhemoglobin Sodium Potassium Chloride Carbon Dioxide BUN Creatinine Glucose POC Glucose Lactic Acid 3.70 H* Calcium Phosphorus Magnesium AST ALT Alkaline Phosphatase 139 H Lactate Dehydrogenase Troponin T C-Reactive Protein NT-Pro-B Natriuret Pep 7895 H Total Protein Albumin 3.5 L LDL Cholesterol Direct Vitamin B12 Urine WBC (Auto) Fluid Glucose Fluid Total Protein Vancomycin Trough Crossmatch See Detail 11/04/21 11/04/21 11/05/21 00:59 13:58 00:51 WBC 27.9 H RBC 3.28 L Hgb 7.3 L Hct 25.5 L MCV 78 L MCH 22 L MCHC 29 L RDW 19.1 H Plt Count Eos % (Auto) Eos # (Auto) Seg Neuts % (Manual) 96.0 H Lymphocytes % (Manual) 2.0 L Seg Neutrophils # Seg Neutrophils # Man 26.8 H Lymphocytes # (Manual) 0.6 L Monocytes # (Manual) PT INR D-Dimer ABG pH ABG pO2 ABG HCO3 ABG O2 Saturation ABG Base Excess ABG Hemoglobin Oxyhemoglobin Sodium Potassium Chloride Carbon Dioxide BUN Creatinine Glucose POC Glucose Lactic Acid Calcium Phosphorus Magnesium AST ALT Alkaline Phosphatase Lactate Dehydrogenase Troponin T 0.051 H D 0.032 H D C-Reactive Protein NT-Pro-B Natriuret Pep Total Protein Albumin LDL Cholesterol Direct Vitamin B12 Urine WBC (Auto) Fluid Glucose Fluid Total Protein Vancomycin Trough Crossmatch 11/05/21 11/05/21 11/05/21 06:11 06:11 06:11 WBC 31.8 H RBC 3.57 L Hgb 8.0 L Hct 27.7 L MCV 78 L MCH 22 L MCHC 29 L RDW 19.2 H Plt Count Eos % (Auto) Eos # (Auto) Seg Neuts % (Manual) 91.0 H Lymphocytes % (Manual) 4.5 L Seg Neutrophils # Seg Neutrophils # Man 28.9 H Lymphocytes # (Manual) Monocytes # (Manual) 1.1 H PT INR D-Dimer 1494.53 H ABG pH ABG pO2 ABG HCO3 ABG O2 Saturation ABG Base Excess ABG Hemoglobin Oxyhemoglobin Sodium Potassium Chloride Carbon Dioxide 19 L BUN 42 H Creatinine Glucose 115 H POC Glucose Lactic Acid Calcium Phosphorus Magnesium AST 43 H ALT Alkaline Phosphatase Lactate Dehydrogenase 187 H Troponin T C-Reactive Protein 22.20 H NT-Pro-B Natriuret Pep Total Protein 6.0 L Albumin 3.2 L LDL Cholesterol Direct Vitamin B12 Urine WBC (Auto) Fluid Glucose Fluid Total Protein Vancomycin Trough Crossmatch 11/05/21 11/05/21 11/06/21 06:11 12:15 00:30 WBC RBC Hgb Hct MCV MCH MCHC RDW Plt Count Eos % (Auto) Eos # (Auto) Seg Neuts % (Manual) Lymphocytes % (Manual) Seg Neutrophils # Seg Neutrophils # Man Lymphocytes # (Manual) Monocytes # (Manual) PT INR D-Dimer ABG pH ABG pO2 ABG HCO3 ABG O2 Saturation ABG Base Excess ABG Hemoglobin Oxyhemoglobin Sodium Potassium Chloride Carbon Dioxide BUN Creatinine Glucose POC Glucose 113 H 69 L Lactic Acid Calcium Phosphorus Magnesium AST ALT Alkaline Phosphatase Lactate Dehydrogenase Troponin T 0.033 H C-Reactive Protein NT-Pro-B Natriuret Pep Total Protein Albumin LDL Cholesterol Direct Vitamin B12 Urine WBC (Auto) Fluid Glucose Fluid Total Protein Vancomycin Trough Crossmatch 11/06/21 11/06/21 11/06/21 05:50 15:50 15:50 WBC 25.5 H RBC 3.62 L Hgb 8.0 L Hct 27.5 L MCV 76 L MCH 22 L MCHC 29 L RDW 19.6 H Plt Count Eos % (Auto) Eos # (Auto) Seg Neuts % (Manual) 92.0 H Lymphocytes % (Manual) 5.0 L Seg Neutrophils # Seg Neutrophils # Man 23.5 H Lymphocytes # (Manual) Monocytes # (Manual) PT INR D-Dimer ABG pH 7.305 L ABG pO2 ABG HCO3 15.8 L ABG O2 Saturation ABG Base Excess -9.6 L ABG Hemoglobin 8.6 L Oxyhemoglobin 94.6 L Sodium Potassium Chloride 113.9 H Carbon Dioxide 17 L BUN 56 H Creatinine Glucose 114 H POC Glucose Lactic Acid Calcium 7.9 L Phosphorus Magnesium AST 1410 H ALT 934 H Alkaline Phosphatase 142 H Lactate Dehydrogenase Troponin T C-Reactive Protein NT-Pro-B Natriuret Pep Total Protein 5.0 L Albumin 2.6 L LDL Cholesterol Direct Vitamin B12 Urine WBC (Auto) Fluid Glucose Fluid Total Protein Vancomycin Trough Crossmatch 11/07/21 11/07/21 11/07/21 03:30 04:50 08:07 WBC RBC Hgb Hct MCV MCH MCHC RDW Plt Count Eos % (Auto) Eos # (Auto) Seg Neuts % (Manual) Lymphocytes % (Manual) Seg Neutrophils # Seg Neutrophils # Man Lymphocytes # (Manual) Monocytes # (Manual) PT INR D-Dimer ABG pH ABG pO2 296.9 H ABG HCO3 18.1 L ABG O2 Saturation 99.5 H ABG Base Excess -5.9 L ABG Hemoglobin 7.6 L Oxyhemoglobin Sodium Potassium Chloride Carbon Dioxide BUN Creatinine Glucose POC Glucose 106 H 108 H Lactic Acid Calcium Phosphorus Magnesium AST ALT Alkaline Phosphatase Lactate Dehydrogenase Troponin T C-Reactive Protein NT-Pro-B Natriuret Pep Total Protein Albumin LDL Cholesterol Direct Vitamin B12 Urine WBC (Auto) Fluid Glucose Fluid Total Protein Vancomycin Trough Crossmatch 11/08/21 11/08/21 11/08/21 03:10 18:05 23:43 WBC RBC Hgb Hct MCV MCH MCHC RDW Plt Count Eos % (Auto) Eos # (Auto) Seg Neuts % (Manual) Lymphocytes % (Manual) Seg Neutrophils # Seg Neutrophils # Man Lymphocytes # (Manual) Monocytes # (Manual) PT INR D-Dimer ABG pH ABG pO2 127.4 H ABG HCO3 ABG O2 Saturation ABG Base Excess -3.4 L ABG Hemoglobin 7.4 L Oxyhemoglobin Sodium Potassium Chloride Carbon Dioxide BUN Creatinine Glucose POC Glucose 113 H 141 H Lactic Acid Calcium Phosphorus Magnesium AST ALT Alkaline Phosphatase Lactate Dehydrogenase Troponin T C-Reactive Protein NT-Pro-B Natriuret Pep Total Protein Albumin LDL Cholesterol Direct Vitamin B12 Urine WBC (Auto) Fluid Glucose Fluid Total Protein Vancomycin Trough Crossmatch 11/08/21 11/08/21 11/09/21 Unknown Unknown 02:00 WBC 14.5 H RBC 3.35 L Hgb 7.5 L 8.1 L Hct 25.4 L 27.6 L MCV 76 L 76 L MCH 23 L 22 L MCHC RDW 19.9 H 19.9 H Plt Count Eos % (Auto) Eos # (Auto) Seg Neuts % (Manual) Lymphocytes % (Manual) Seg Neutrophils # Seg Neutrophils # Man Lymphocytes # (Manual) Monocytes # (Manual) PT INR D-Dimer ABG pH ABG pO2 ABG HCO3 ABG O2 Saturation ABG Base Excess ABG Hemoglobin Oxyhemoglobin Sodium 154 H D Potassium 3.3 L Chloride 120.7 H Carbon Dioxide 20 L BUN 38 H Creatinine Glucose POC Glucose Lactic Acid Calcium 8.3 L Phosphorus Magnesium AST ALT Alkaline Phosphatase Lactate Dehydrogenase Troponin T C-Reactive Protein NT-Pro-B Natriuret Pep Total Protein Albumin LDL Cholesterol Direct Vitamin B12 Urine WBC (Auto) Fluid Glucose Fluid Total Protein Vancomycin Trough Crossmatch 11/09/21 11/09/21 11/09/21 02:00 02:31 05:12 WBC RBC Hgb Hct MCV MCH MCHC RDW Plt Count Eos % (Auto) Eos # (Auto) Seg Neuts % (Manual) Lymphocytes % (Manual) Seg Neutrophils # Seg Neutrophils # Man Lymphocytes # (Manual) Monocytes # (Manual) PT INR D-Dimer ABG pH 7.479 H ABG pO2 121.3 H ABG HCO3 ABG O2 Saturation ABG Base Excess ABG Hemoglobin 7.3 L Oxyhemoglobin Sodium Potassium Chloride 112.5 H Carbon Dioxide BUN 33 H Creatinine Glucose 161 H POC Glucose 135 H Lactic Acid Calcium Phosphorus Magnesium AST 251 H ALT 481 H Alkaline Phosphatase Lactate Dehydrogenase Troponin T C-Reactive Protein NT-Pro-B Natriuret Pep Total Protein 5.0 L Albumin 2.8 L LDL Cholesterol Direct Vitamin B12 Urine WBC (Auto) Fluid Glucose Fluid Total Protein Vancomycin Trough Crossmatch 11/09/21 11/09/21 11/09/21 11:33 16:32 23:28 WBC RBC Hgb Hct MCV MCH MCHC RDW Plt Count Eos % (Auto) Eos # (Auto) Seg Neuts % (Manual) Lymphocytes % (Manual) Seg Neutrophils # Seg Neutrophils # Man Lymphocytes # (Manual) Monocytes # (Manual) PT INR D-Dimer ABG pH ABG pO2 ABG HCO3 ABG O2 Saturation ABG Base Excess ABG Hemoglobin Oxyhemoglobin Sodium Potassium Chloride Carbon Dioxide BUN Creatinine Glucose POC Glucose 132 H 133 H 143 H Lactic Acid Calcium Phosphorus Magnesium AST ALT Alkaline Phosphatase Lactate Dehydrogenase Troponin T C-Reactive Protein NT-Pro-B Natriuret Pep Total Protein Albumin LDL Cholesterol Direct Vitamin B12 Urine WBC (Auto) Fluid Glucose Fluid Total Protein Vancomycin Trough Crossmatch 11/10/21 11/10/21 11/10/21 04:00 04:00 05:35 WBC 16.0 H RBC 3.61 L Hgb 8.0 L Hct 27.1 L MCV 75 L MCH 22 L MCHC RDW 20.4 H Plt Count Eos % (Auto) Eos # (Auto) Seg Neuts % (Manual) Lymphocytes % (Manual) Seg Neutrophils # Seg Neutrophils # Man Lymphocytes # (Manual) Monocytes # (Manual) PT INR D-Dimer ABG pH ABG pO2 ABG HCO3 ABG O2 Saturation ABG Base Excess ABG Hemoglobin Oxyhemoglobin Sodium 149 H Potassium Chloride 114.1 H Carbon Dioxide BUN 31 H Creatinine Glucose 148 H POC Glucose 132 H Lactic Acid Calcium 8.2 L Phosphorus Magnesium AST ALT Alkaline Phosphatase Lactate Dehydrogenase Troponin T C-Reactive Protein NT-Pro-B Natriuret Pep Total Protein Albumin LDL Cholesterol Direct Vitamin B12 Urine WBC (Auto) Fluid Glucose Fluid Total Protein Vancomycin Trough Crossmatch 11/10/21 11/10/21 11/10/21 11:31 14:08 15:35 WBC RBC Hgb Hct MCV MCH MCHC RDW Plt Count Eos % (Auto) Eos # (Auto) Seg Neuts % (Manual) Lymphocytes % (Manual) Seg Neutrophils # Seg Neutrophils # Man Lymphocytes # (Manual) Monocytes # (Manual) PT INR D-Dimer ABG pH ABG pO2 126.6 H ABG HCO3 ABG O2 Saturation ABG Base Excess ABG Hemoglobin 7.4 L Oxyhemoglobin Sodium Potassium Chloride Carbon Dioxide BUN Creatinine Glucose POC Glucose 147 H Lactic Acid Calcium Phosphorus Magnesium AST ALT Alkaline Phosphatase Lactate Dehydrogenase Troponin T C-Reactive Protein NT-Pro-B Natriuret Pep Total Protein Albumin LDL Cholesterol Direct Vitamin B12 1823 H Urine WBC (Auto) Fluid Glucose Fluid Total Protein Vancomycin Trough Crossmatch 11/10/21 11/11/21 11/11/21 17:53 00:55 04:28 WBC RBC Hgb Hct MCV MCH MCHC RDW Plt Count Eos % (Auto) Eos # (Auto) Seg Neuts % (Manual) Lymphocytes % (Manual) Seg Neutrophils # Seg Neutrophils # Man Lymphocytes # (Manual) Monocytes # (Manual) PT INR D-Dimer ABG pH ABG pO2 ABG HCO3 ABG O2 Saturation ABG Base Excess ABG Hemoglobin Oxyhemoglobin Sodium 149 H Potassium Chloride 112.2 H Carbon Dioxide BUN 34 H Creatinine Glucose 148 H POC Glucose 140 H 145 H Lactic Acid Calcium 7.9 L Phosphorus Magnesium AST 53 H ALT 203 H Alkaline Phosphatase Lactate Dehydrogenase Troponin T C-Reactive Protein NT-Pro-B Natriuret Pep Total Protein 4.9 L Albumin 2.6 L LDL Cholesterol Direct Vitamin B12 Urine WBC (Auto) Fluid Glucose Fluid Total Protein Vancomycin Trough Crossmatch 11/11/21 11/11/21 11/11/21 04:28 04:28 05:28 WBC 20.9 H RBC 3.47 L Hgb 7.5 L Hct 26.0 L MCV 75 L MCH 22 L MCHC 29 L RDW 21.6 H Plt Count 132 L Eos % (Auto) Eos # (Auto) Seg Neuts % (Manual) Lymphocytes % (Manual) Seg Neutrophils # Seg Neutrophils # Man Lymphocytes # (Manual) Monocytes # (Manual) PT INR D-Dimer 2655.00 H ABG pH ABG pO2 ABG HCO3 ABG O2 Saturation ABG Base Excess ABG Hemoglobin Oxyhemoglobin Sodium Potassium Chloride Carbon Dioxide BUN Creatinine Glucose POC Glucose 154 H Lactic Acid Calcium Phosphorus Magnesium AST ALT Alkaline Phosphatase Lactate Dehydrogenase Troponin T C-Reactive Protein NT-Pro-B Natriuret Pep Total Protein Albumin LDL Cholesterol Direct Vitamin B12 Urine WBC (Auto) Fluid Glucose Fluid Total Protein Vancomycin Trough Crossmatch 11/11/21 11/11/21 11/12/21 12:38 18:13 00:14 WBC RBC Hgb Hct MCV MCH MCHC RDW Plt Count Eos % (Auto) Eos # (Auto) Seg Neuts % (Manual) Lymphocytes % (Manual) Seg Neutrophils # Seg Neutrophils # Man Lymphocytes # (Manual) Monocytes # (Manual) PT INR D-Dimer ABG pH ABG pO2 ABG HCO3 ABG O2 Saturation ABG Base Excess ABG Hemoglobin Oxyhemoglobin Sodium Potassium Chloride Carbon Dioxide BUN Creatinine Glucose POC Glucose 137 H 108 H 137 H Lactic Acid Calcium Phosphorus Magnesium AST ALT Alkaline Phosphatase Lactate Dehydrogenase Troponin T C-Reactive Protein NT-Pro-B Natriuret Pep Total Protein Albumin LDL Cholesterol Direct Vitamin B12 Urine WBC (Auto) Fluid Glucose Fluid Total Protein Vancomycin Trough Crossmatch 11/12/21 11/12/21 11/12/21 05:40 06:24 11:12 WBC RBC Hgb Hct MCV MCH MCHC RDW Plt Count Eos % (Auto) Eos # (Auto) Seg Neuts % (Manual) Lymphocytes % (Manual) Seg Neutrophils # Seg Neutrophils # Man Lymphocytes # (Manual) Monocytes # (Manual) PT INR D-Dimer ABG pH 7.586 H ABG pO2 150.6 H ABG HCO3 27.2 H ABG O2 Saturation 99.1 H ABG Base Excess 5.2 H ABG Hemoglobin 7.5 L Oxyhemoglobin Sodium Potassium Chloride Carbon Dioxide BUN Creatinine Glucose POC Glucose 132 H 140 H Lactic Acid Calcium Phosphorus Magnesium AST ALT Alkaline Phosphatase Lactate Dehydrogenase Troponin T C-Reactive Protein NT-Pro-B Natriuret Pep Total Protein Albumin LDL Cholesterol Direct Vitamin B12 Urine WBC (Auto) Fluid Glucose Fluid Total Protein Vancomycin Trough Crossmatch 11/12/21 11/12/21 11/12/21 14:50 14:50 17:13 WBC 19.8 H RBC 3.27 L Hgb 7.1 L Hct 24.5 L MCV 75 L MCH 22 L MCHC 29 L RDW 22.3 H Plt Count Eos % (Auto) Eos # (Auto) Seg Neuts % (Manual) Lymphocytes % (Manual) Seg Neutrophils # Seg Neutrophils # Man Lymphocytes # (Manual) Monocytes # (Manual) PT INR D-Dimer ABG pH ABG pO2 ABG HCO3 ABG O2 Saturation ABG Base Excess ABG Hemoglobin Oxyhemoglobin Sodium 150 H Potassium 3.3 L Chloride 112.0 H Carbon Dioxide BUN 40 H Creatinine Glucose 151 H POC Glucose 121 H Lactic Acid Calcium 7.4 L Phosphorus 1.70 L Magnesium 1.40 L AST ALT Alkaline Phosphatase Lactate Dehydrogenase Troponin T C-Reactive Protein NT-Pro-B Natriuret Pep Total Protein Albumin LDL Cholesterol Direct Vitamin B12 Urine WBC (Auto) Fluid Glucose Fluid Total Protein Vancomycin Trough Crossmatch 11/12/21 11/13/21 11/13/21 23:19 05:34 06:30 WBC RBC Hgb Hct MCV MCH MCHC RDW Plt Count Eos % (Auto) Eos # (Auto) Seg Neuts % (Manual) Lymphocytes % (Manual) Seg Neutrophils # Seg Neutrophils # Man Lymphocytes # (Manual) Monocytes # (Manual) PT INR D-Dimer ABG pH ABG pO2 ABG HCO3 ABG O2 Saturation ABG Base Excess ABG Hemoglobin Oxyhemoglobin Sodium 149 H Potassium Chloride 60.0 L Carbon Dioxide BUN 40 H Creatinine Glucose 146 H POC Glucose 113 H 132 H Lactic Acid Calcium 7.3 L Phosphorus Magnesium 2.40 H AST ALT 72 H Alkaline Phosphatase Lactate Dehydrogenase Troponin T C-Reactive Protein NT-Pro-B Natriuret Pep Total Protein 5.2 L Albumin 2.2 L LDL Cholesterol Direct Vitamin B12 Urine WBC (Auto) Fluid Glucose Fluid Total Protein Vancomycin Trough Crossmatch 11/13/21 11/13/21 11/13/21 06:30 08:30 11:19 WBC 21.2 H RBC 3.12 L Hgb 6.8 L Hct 23.2 L MCV 74 L MCH 22 L MCHC 29 L RDW 22.2 H Plt Count 135 L Eos % (Auto) Eos # (Auto) Seg Neuts % (Manual) Lymphocytes % (Manual) Seg Neutrophils # Seg Neutrophils # Man Lymphocytes # (Manual) Monocytes # (Manual) PT INR D-Dimer ABG pH ABG pO2 ABG HCO3 ABG O2 Saturation ABG Base Excess ABG Hemoglobin Oxyhemoglobin Sodium Potassium Chloride Carbon Dioxide BUN Creatinine Glucose POC Glucose 136 H Lactic Acid Calcium Phosphorus Magnesium AST ALT Alkaline Phosphatase Lactate Dehydrogenase Troponin T C-Reactive Protein NT-Pro-B Natriuret Pep Total Protein Albumin LDL Cholesterol Direct Vitamin B12 Urine WBC (Auto) Fluid Glucose Fluid Total Protein Vancomycin Trough Crossmatch See Detail 11/13/21 11/14/21 11/14/21 18:21 00:01 04:46 WBC 20.0 H RBC 3.41 L Hgb 7.9 L Hct 26.8 L MCV MCH 23 L MCHC 29 L RDW 24.0 H Plt Count Eos % (Auto) Eos # (Auto) Seg Neuts % (Manual) Lymphocytes % (Manual) Seg Neutrophils # Seg Neutrophils # Man Lymphocytes # (Manual) Monocytes # (Manual) PT INR D-Dimer ABG pH ABG pO2 ABG HCO3 ABG O2 Saturation ABG Base Excess ABG Hemoglobin Oxyhemoglobin Sodium Potassium Chloride Carbon Dioxide BUN Creatinine Glucose POC Glucose 149 H 141 H Lactic Acid Calcium Phosphorus Magnesium AST ALT Alkaline Phosphatase Lactate Dehydrogenase Troponin T C-Reactive Protein NT-Pro-B Natriuret Pep Total Protein Albumin LDL Cholesterol Direct Vitamin B12 Urine WBC (Auto) Fluid Glucose Fluid Total Protein Vancomycin Trough Crossmatch 11/14/21 11/14/21 11/14/21 04:46 05:10 11:10 WBC RBC Hgb Hct MCV MCH MCHC RDW Plt Count Eos % (Auto) Eos # (Auto) Seg Neuts % (Manual) Lymphocytes % (Manual) Seg Neutrophils # Seg Neutrophils # Man Lymphocytes # (Manual) Monocytes # (Manual) PT INR D-Dimer ABG pH ABG pO2 ABG HCO3 ABG O2 Saturation ABG Base Excess ABG Hemoglobin Oxyhemoglobin Sodium 148 H Potassium Chloride 113.1 H Carbon Dioxide BUN 43 H Creatinine Glucose 140 H POC Glucose 132 H 133 H Lactic Acid Calcium 7.5 L Phosphorus Magnesium AST ALT Alkaline Phosphatase Lactate Dehydrogenase Troponin T C-Reactive Protein NT-Pro-B Natriuret Pep Total Protein Albumin LDL Cholesterol Direct Vitamin B12 Urine WBC (Auto) Fluid Glucose Fluid Total Protein Vancomycin Trough Crossmatch 11/14/21 11/14/21 11/14/21 16:14 17:48 23:23 WBC RBC Hgb Hct MCV MCH MCHC RDW Plt Count Eos % (Auto) Eos # (Auto) Seg Neuts % (Manual) Lymphocytes % (Manual) Seg Neutrophils # Seg Neutrophils # Man Lymphocytes # (Manual) Monocytes # (Manual) PT INR D-Dimer ABG pH ABG pO2 ABG HCO3 28.0 H ABG O2 Saturation ABG Base Excess 3.1 H ABG Hemoglobin 5.8 L Oxyhemoglobin 94.8 L Sodium Potassium Chloride Carbon Dioxide BUN Creatinine Glucose POC Glucose 130 H 136 H Lactic Acid Calcium Phosphorus Magnesium AST ALT Alkaline Phosphatase Lactate Dehydrogenase Troponin T C-Reactive Protein NT-Pro-B Natriuret Pep Total Protein Albumin LDL Cholesterol Direct Vitamin B12 Urine WBC (Auto) Fluid Glucose Fluid Total Protein Vancomycin Trough Crossmatch 11/15/21 11/15/21 11/15/21 05:20 05:50 05:50 WBC 19.9 H RBC 3.50 L Hgb 8.2 L Hct 27.9 L MCV MCH 23 L MCHC 29 L RDW 24.9 H Plt Count Eos % (Auto) Eos # (Auto) Seg Neuts % (Manual) Lymphocytes % (Manual) Seg Neutrophils # Seg Neutrophils # Man Lymphocytes # (Manual) Monocytes # (Manual) PT INR D-Dimer ABG pH ABG pO2 ABG HCO3 ABG O2 Saturation ABG Base Excess ABG Hemoglobin Oxyhemoglobin Sodium 149 H Potassium Chloride 112.0 H Carbon Dioxide BUN 48 H Creatinine Glucose 152 H POC Glucose 137 H Lactic Acid Calcium 7.9 L Phosphorus Magnesium AST ALT Alkaline Phosphatase Lactate Dehydrogenase Troponin T C-Reactive Protein NT-Pro-B Natriuret Pep Total Protein Albumin LDL Cholesterol Direct Vitamin B12 Urine WBC (Auto) Fluid Glucose Fluid Total Protein Vancomycin Trough Crossmatch 11/15/21 11/15/21 11/15/21 12:12 17:07 23:24 WBC RBC Hgb Hct MCV MCH MCHC RDW Plt Count Eos % (Auto) Eos # (Auto) Seg Neuts % (Manual) Lymphocytes % (Manual) Seg Neutrophils # Seg Neutrophils # Man Lymphocytes # (Manual) Monocytes # (Manual) PT INR D-Dimer ABG pH ABG pO2 ABG HCO3 ABG O2 Saturation ABG Base Excess ABG Hemoglobin Oxyhemoglobin Sodium Potassium Chloride Carbon Dioxide BUN Creatinine Glucose POC Glucose 114 H 135 H 123 H Lactic Acid Calcium Phosphorus Magnesium AST ALT Alkaline Phosphatase Lactate Dehydrogenase Troponin T C-Reactive Protein NT-Pro-B Natriuret Pep Total Protein Albumin LDL Cholesterol Direct Vitamin B12 Urine WBC (Auto) Fluid Glucose Fluid Total Protein Vancomycin Trough Crossmatch 11/16/21 11/16/21 11/16/21 05:21 10:00 10:00 WBC 21.7 H RBC 2.57 L Hgb 6.0 L Hct 20.2 L D MCV MCH 24 L MCHC RDW 26.3 H Plt Count Eos % (Auto) Eos # (Auto) Seg Neuts % (Manual) Lymphocytes % (Manual) Seg Neutrophils # Seg Neutrophils # Man Lymphocytes # (Manual) Monocytes # (Manual) PT INR D-Dimer ABG pH ABG pO2 ABG HCO3 ABG O2 Saturation ABG Base Excess ABG Hemoglobin Oxyhemoglobin Sodium 153 H Potassium Chloride 114.9 H Carbon Dioxide BUN 74 H Creatinine Glucose 155 H POC Glucose 127 H Lactic Acid Calcium 8.1 L Phosphorus Magnesium AST ALT Alkaline Phosphatase Lactate Dehydrogenase Troponin T C-Reactive Protein NT-Pro-B Natriuret Pep Total Protein Albumin LDL Cholesterol Direct Vitamin B12 Urine WBC (Auto) Fluid Glucose Fluid Total Protein Vancomycin Trough Crossmatch 11/16/21 11/16/21 11/16/21 11:34 14:00 15:25 WBC 17.2 H RBC 2.08 L Hgb 4.7 L* Hct 16.2 L* MCV 78 L MCH 23 L MCHC 29 L RDW 26.0 H Plt Count Eos % (Auto) Eos # (Auto) Seg Neuts % (Manual) 87.0 H Lymphocytes % (Manual) 8.0 L Seg Neutrophils # Seg Neutrophils # Man 15.0 H Lymphocytes # (Manual) Monocytes # (Manual) 0.9 H PT INR D-Dimer ABG pH ABG pO2 ABG HCO3 ABG O2 Saturation ABG Base Excess ABG Hemoglobin Oxyhemoglobin Sodium Potassium Chloride Carbon Dioxide BUN Creatinine Glucose POC Glucose 131 H Lactic Acid Calcium Phosphorus Magnesium AST ALT Alkaline Phosphatase Lactate Dehydrogenase Troponin T C-Reactive Protein NT-Pro-B Natriuret Pep Total Protein Albumin LDL Cholesterol Direct Vitamin B12 Urine WBC (Auto) Fluid Glucose Fluid Total Protein Vancomycin Trough Crossmatch See Detail 11/16/21 11/16/21 11/16/21 15:25 17:21 22:43 WBC RBC Hgb 8.6 L D Hct 27.7 L D MCV MCH MCHC RDW Plt Count Eos % (Auto) Eos # (Auto) Seg Neuts % (Manual) Lymphocytes % (Manual) Seg Neutrophils # Seg Neutrophils # Man Lymphocytes # (Manual) Monocytes # (Manual) PT INR D-Dimer ABG pH ABG pO2 ABG HCO3 ABG O2 Saturation ABG Base Excess ABG Hemoglobin Oxyhemoglobin Sodium 148 H Potassium Chloride 113.2 H Carbon Dioxide BUN 84 H Creatinine Glucose 164 H POC Glucose 124 H Lactic Acid Calcium 7.6 L Phosphorus Magnesium AST ALT Alkaline Phosphatase Lactate Dehydrogenase Troponin T C-Reactive Protein NT-Pro-B Natriuret Pep Total Protein Albumin LDL Cholesterol Direct Vitamin B12 Urine WBC (Auto) Fluid Glucose Fluid Total Protein Vancomycin Trough Crossmatch 11/16/21 11/17/21 11/17/21 23:07 05:33 05:56 WBC 25.1 H RBC 3.47 L Hgb 8.7 L Hct 28.5 L MCV MCH 25 L MCHC RDW 22.3 H Plt Count Eos % (Auto) Eos # (Auto) Seg Neuts % (Manual) Lymphocytes % (Manual) Seg Neutrophils # Seg Neutrophils # Man Lymphocytes # (Manual) Monocytes # (Manual) PT INR D-Dimer ABG pH ABG pO2 ABG HCO3 ABG O2 Saturation ABG Base Excess ABG Hemoglobin Oxyhemoglobin Sodium Potassium Chloride Carbon Dioxide BUN Creatinine Glucose POC Glucose 128 H 133 H Lactic Acid Calcium Phosphorus Magnesium AST ALT Alkaline Phosphatase Lactate Dehydrogenase Troponin T C-Reactive Protein NT-Pro-B Natriuret Pep Total Protein Albumin LDL Cholesterol Direct Vitamin B12 Urine WBC (Auto) Fluid Glucose Fluid Total Protein Vancomycin Trough Crossmatch 11/17/21 11/17/21 11/17/21 05:56 11:00 11:55 WBC RBC Hgb 8.3 L Hct 26.9 L MCV MCH MCHC RDW Plt Count Eos % (Auto) Eos # (Auto) Seg Neuts % (Manual) Lymphocytes % (Manual) Seg Neutrophils # Seg Neutrophils # Man Lymphocytes # (Manual) Monocytes # (Manual) PT INR D-Dimer ABG pH ABG pO2 ABG HCO3 ABG O2 Saturation ABG Base Excess ABG Hemoglobin Oxyhemoglobin Sodium 151 H Potassium Chloride 113.6 H Carbon Dioxide BUN 85 H Creatinine Glucose 132 H POC Glucose 121 H Lactic Acid Calcium 7.8 L Phosphorus Magnesium AST ALT Alkaline Phosphatase Lactate Dehydrogenase Troponin T C-Reactive Protein NT-Pro-B Natriuret Pep Total Protein 5.1 L Albumin 2.2 L LDL Cholesterol Direct Vitamin B12 Urine WBC (Auto) Fluid Glucose Fluid Total Protein Vancomycin Trough Crossmatch 11/17/21 11/17/21 11/18/21 18:04 18:55 00:26 WBC RBC Hgb 7.5 L 7.1 L Hct 24.8 L 23.6 L MCV MCH MCHC RDW Plt Count Eos % (Auto) Eos # (Auto) Seg Neuts % (Manual) Lymphocytes % (Manual) Seg Neutrophils # Seg Neutrophils # Man Lymphocytes # (Manual) Monocytes # (Manual) PT INR D-Dimer ABG pH ABG pO2 ABG HCO3 ABG O2 Saturation ABG Base Excess ABG Hemoglobin Oxyhemoglobin Sodium Potassium Chloride Carbon Dioxide BUN Creatinine Glucose POC Glucose 144 H Lactic Acid Calcium Phosphorus Magnesium AST ALT Alkaline Phosphatase Lactate Dehydrogenase Troponin T C-Reactive Protein NT-Pro-B Natriuret Pep Total Protein Albumin LDL Cholesterol Direct Vitamin B12 Urine WBC (Auto) Fluid Glucose Fluid Total Protein Vancomycin Trough Crossmatch 11/18/21 11/18/21 11/18/21 00:43 05:10 05:10 WBC 12.5 H RBC 2.39 L Hgb 6.1 L Hct 20.2 L MCV MCH 25 L MCHC RDW 23.2 H Plt Count Eos % (Auto) Eos # (Auto) Seg Neuts % (Manual) Lymphocytes % (Manual) Seg Neutrophils # Seg Neutrophils # Man Lymphocytes # (Manual) Monocytes # (Manual) PT INR D-Dimer ABG pH ABG pO2 ABG HCO3 ABG O2 Saturation ABG Base Excess ABG Hemoglobin Oxyhemoglobin Sodium 131 L D Potassium 2.9 L* D Chloride 97.8 L Carbon Dioxide BUN 58 H Creatinine Glucose 665 H* POC Glucose 139 H Lactic Acid Calcium 7.0 L Phosphorus 2.20 L D Magnesium 1.50 L AST ALT Alkaline Phosphatase Lactate Dehydrogenase Troponin T C-Reactive Protein NT-Pro-B Natriuret Pep Total Protein Albumin LDL Cholesterol Direct Vitamin B12 Urine WBC (Auto) Fluid Glucose Fluid Total Protein Vancomycin Trough Crossmatch 11/18/21 11/18/21 11/18/21 05:23 07:10 10:45 WBC RBC Hgb Hct MCV MCH MCHC RDW Plt Count Eos % (Auto) Eos # (Auto) Seg Neuts % (Manual) Lymphocytes % (Manual) Seg Neutrophils # Seg Neutrophils # Man Lymphocytes # (Manual) Monocytes # (Manual) PT INR D-Dimer ABG pH ABG pO2 ABG HCO3 ABG O2 Saturation ABG Base Excess ABG Hemoglobin Oxyhemoglobin Sodium 148 H D Potassium 3.1 L Chloride 111.9 H Carbon Dioxide BUN 63 H Creatinine Glucose 141 H POC Glucose 124 H Lactic Acid Calcium 8.1 L D Phosphorus Magnesium AST ALT Alkaline Phosphatase Lactate Dehydrogenase Troponin T C-Reactive Protein NT-Pro-B Natriuret Pep Total Protein Albumin LDL Cholesterol Direct Vitamin B12 Urine WBC (Auto) Fluid Glucose Fluid Total Protein Vancomycin Trough Crossmatch See Detail 11/18/21 11/19/21 11/19/21 11:57 00:19 04:55 WBC RBC 3.35 L Hgb 9.0 L 8.9 L Hct 28.3 L D 28.1 L MCV MCH 27 L MCHC RDW 20.3 H Plt Count Eos % (Auto) Eos # (Auto) Seg Neuts % (Manual) Lymphocytes % (Manual) Seg Neutrophils # Seg Neutrophils # Man Lymphocytes # (Manual) Monocytes # (Manual) PT INR D-Dimer ABG pH ABG pO2 ABG HCO3 ABG O2 Saturation ABG Base Excess ABG Hemoglobin Oxyhemoglobin Sodium Potassium Chloride Carbon Dioxide BUN Creatinine Glucose POC Glucose 119 H Lactic Acid Calcium Phosphorus Magnesium AST ALT Alkaline Phosphatase Lactate Dehydrogenase Troponin T C-Reactive Protein NT-Pro-B Natriuret Pep Total Protein Albumin LDL Cholesterol Direct Vitamin B12 Urine WBC (Auto) Fluid Glucose Fluid Total Protein Vancomycin Trough Crossmatch 11/19/21 11/19/21 11/20/21 04:55 05:42 00:55 WBC RBC Hgb 9.0 L Hct 28.6 L MCV MCH MCHC RDW Plt Count Eos % (Auto) Eos # (Auto) Seg Neuts % (Manual) Lymphocytes % (Manual) Seg Neutrophils # Seg Neutrophils # Man Lymphocytes # (Manual) Monocytes # (Manual) PT INR D-Dimer ABG pH ABG pO2 ABG HCO3 ABG O2 Saturation ABG Base Excess ABG Hemoglobin Oxyhemoglobin Sodium Potassium 3.5 L Chloride 108.6 H Carbon Dioxide BUN 47 H Creatinine Glucose 207 H POC Glucose 63 L Lactic Acid Calcium 7.1 L Phosphorus Magnesium AST ALT Alkaline Phosphatase Lactate Dehydrogenase Troponin T C-Reactive Protein NT-Pro-B Natriuret Pep Total Protein Albumin LDL Cholesterol Direct Vitamin B12 Urine WBC (Auto) Fluid Glucose Fluid Total Protein Vancomycin Trough Crossmatch 11/20/21 11/20/21 11/20/21 05:40 05:40 Unknown WBC RBC 3.40 L Hgb 9.1 L Hct 28.8 L MCV MCH 27 L MCHC RDW 20.7 H Plt Count Eos % (Auto) Eos # (Auto) Seg Neuts % (Manual) Lymphocytes % (Manual) Seg Neutrophils # Seg Neutrophils # Man Lymphocytes # (Manual) Monocytes # (Manual) PT INR D-Dimer ABG pH ABG pO2 ABG HCO3 ABG O2 Saturation ABG Base Excess -2.7 L ABG Hemoglobin 9.5 L Oxyhemoglobin 94.3 L Sodium Potassium 3.5 L Chloride 108.9 H Carbon Dioxide BUN 37 H Creatinine Glucose 117 H POC Glucose Lactic Acid Calcium 7.5 L Phosphorus Magnesium AST ALT Alkaline Phosphatase Lactate Dehydrogenase Troponin T C-Reactive Protein NT-Pro-B Natriuret Pep Total Protein Albumin LDL Cholesterol Direct Vitamin B12 Urine WBC (Auto) Fluid Glucose Fluid Total Protein Vancomycin Trough Crossmatch 11/21/21 11/21/21 11/21/21 04:30 04:30 16:00 WBC RBC 3.25 L Hgb 8.6 L Hct 28.1 L MCV MCH 26 L MCHC RDW 20.7 H Plt Count Eos % (Auto) Eos # (Auto) Seg Neuts % (Manual) Lymphocytes % (Manual) Seg Neutrophils # Seg Neutrophils # Man Lymphocytes # (Manual) Monocytes # (Manual) PT INR D-Dimer ABG pH ABG pO2 114.2 H ABG HCO3 ABG O2 Saturation ABG Base Excess ABG Hemoglobin 9.1 L Oxyhemoglobin Sodium 134 L Potassium Chloride Carbon Dioxide 20 L BUN 34 H Creatinine Glucose POC Glucose Lactic Acid Calcium 7.1 L Phosphorus Magnesium AST ALT Alkaline Phosphatase Lactate Dehydrogenase Troponin T C-Reactive Protein NT-Pro-B Natriuret Pep Total Protein Albumin LDL Cholesterol Direct Vitamin B12 Urine WBC (Auto) Fluid Glucose Fluid Total Protein Vancomycin Trough Crossmatch 11/22/21 11/22/21 11/22/21 07:07 07:07 23:54 WBC RBC 3.30 L Hgb 9.0 L Hct 28.5 L MCV MCH 27 L MCHC RDW 21.0 H Plt Count Eos % (Auto) Eos # (Auto) Seg Neuts % (Manual) Lymphocytes % (Manual) Seg Neutrophils # Seg Neutrophils # Man Lymphocytes # (Manual) Monocytes # (Manual) PT INR D-Dimer ABG pH ABG pO2 ABG HCO3 ABG O2 Saturation ABG Base Excess ABG Hemoglobin Oxyhemoglobin Sodium Potassium Chloride Carbon Dioxide BUN 32 H Creatinine Glucose 106 H POC Glucose 110 H Lactic Acid Calcium 7.5 L Phosphorus Magnesium AST ALT Alkaline Phosphatase Lactate Dehydrogenase Troponin T C-Reactive Protein NT-Pro-B Natriuret Pep Total Protein Albumin LDL Cholesterol Direct Vitamin B12 Urine WBC (Auto) Fluid Glucose Fluid Total Protein Vancomycin Trough Crossmatch 11/23/21 11/23/21 11/23/21 04:38 04:38 06:01 WBC RBC 3.23 L Hgb 8.8 L Hct 28.0 L MCV MCH 27 L MCHC RDW 21.3 H Plt Count Eos % (Auto) Eos # (Auto) Seg Neuts % (Manual) Lymphocytes % (Manual) Seg Neutrophils # Seg Neutrophils # Man Lymphocytes # (Manual) Monocytes # (Manual) PT INR D-Dimer ABG pH ABG pO2 ABG HCO3 ABG O2 Saturation ABG Base Excess ABG Hemoglobin Oxyhemoglobin Sodium 136 L Potassium Chloride Carbon Dioxide 20 L BUN 32 H Creatinine Glucose 109 H POC Glucose 115 H Lactic Acid Calcium 7.7 L Phosphorus Magnesium AST ALT Alkaline Phosphatase Lactate Dehydrogenase Troponin T C-Reactive Protein NT-Pro-B Natriuret Pep Total Protein Albumin LDL Cholesterol Direct Vitamin B12 Urine WBC (Auto) Fluid Glucose Fluid Total Protein Vancomycin Trough Crossmatch 11/23/21 11/24/21 11/24/21 11:40 00:03 04:13 WBC RBC 3.18 L Hgb 8.5 L Hct 27.5 L MCV MCH 27 L MCHC RDW 21.6 H Plt Count Eos % (Auto) Eos # (Auto) Seg Neuts % (Manual) Lymphocytes % (Manual) Seg Neutrophils # Seg Neutrophils # Man Lymphocytes # (Manual) Monocytes # (Manual) PT INR D-Dimer ABG pH ABG pO2 ABG HCO3 ABG O2 Saturation ABG Base Excess ABG Hemoglobin Oxyhemoglobin Sodium Potassium Chloride Carbon Dioxide BUN Creatinine Glucose POC Glucose 117 H 111 H Lactic Acid Calcium Phosphorus Magnesium AST ALT Alkaline Phosphatase Lactate Dehydrogenase Troponin T C-Reactive Protein NT-Pro-B Natriuret Pep Total Protein Albumin LDL Cholesterol Direct Vitamin B12 Urine WBC (Auto) Fluid Glucose Fluid Total Protein Vancomycin Trough Crossmatch 11/24/21 11/24/21 11/24/21 04:13 05:30 11:10 WBC RBC Hgb Hct MCV MCH MCHC RDW Plt Count Eos % (Auto) Eos # (Auto) Seg Neuts % (Manual) Lymphocytes % (Manual) Seg Neutrophils # Seg Neutrophils # Man Lymphocytes # (Manual) Monocytes # (Manual) PT INR D-Dimer ABG pH ABG pO2 ABG HCO3 ABG O2 Saturation ABG Base Excess ABG Hemoglobin Oxyhemoglobin Sodium Potassium Chloride Carbon Dioxide BUN 31 H Creatinine Glucose 101 H POC Glucose 115 H 107 H Lactic Acid Calcium 7.7 L Phosphorus Magnesium AST ALT Alkaline Phosphatase Lactate Dehydrogenase Troponin T C-Reactive Protein NT-Pro-B Natriuret Pep Total Protein Albumin LDL Cholesterol Direct Vitamin B12 Urine WBC (Auto) Fluid Glucose Fluid Total Protein Vancomycin Trough Crossmatch 11/24/21 11/24/21 11/25/21 16:34 17:57 05:12 WBC RBC 3.11 L Hgb 8.2 L Hct 26.6 L MCV MCH 26 L MCHC RDW 21.3 H Plt Count Eos % (Auto) Eos # (Auto) Seg Neuts % (Manual) Lymphocytes % (Manual) Seg Neutrophils # Seg Neutrophils # Man Lymphocytes # (Manual) Monocytes # (Manual) PT INR D-Dimer ABG pH ABG pO2 ABG HCO3 ABG O2 Saturation ABG Base Excess ABG Hemoglobin Oxyhemoglobin Sodium Potassium Chloride Carbon Dioxide BUN Creatinine Glucose POC Glucose 115 H 110 H Lactic Acid Calcium Phosphorus Magnesium AST ALT Alkaline Phosphatase Lactate Dehydrogenase Troponin T C-Reactive Protein NT-Pro-B Natriuret Pep Total Protein Albumin LDL Cholesterol Direct Vitamin B12 Urine WBC (Auto) Fluid Glucose Fluid Total Protein Vancomycin Trough Crossmatch 11/25/21 11/25/21 11/26/21 05:12 11:20 05:00 WBC RBC 3.30 L Hgb 8.8 L Hct 28.2 L MCV MCH 27 L MCHC RDW 20.7 H Plt Count Eos % (Auto) Eos # (Auto) Seg Neuts % (Manual) Lymphocytes % (Manual) Seg Neutrophils # Seg Neutrophils # Man Lymphocytes # (Manual) Monocytes # (Manual) PT INR D-Dimer ABG pH ABG pO2 ABG HCO3 ABG O2 Saturation ABG Base Excess ABG Hemoglobin Oxyhemoglobin Sodium Potassium Chloride Carbon Dioxide BUN 32 H Creatinine Glucose 118 H POC Glucose 118 H Lactic Acid Calcium 8.2 L Phosphorus Magnesium AST ALT Alkaline Phosphatase Lactate Dehydrogenase Troponin T C-Reactive Protein NT-Pro-B Natriuret Pep Total Protein Albumin LDL Cholesterol Direct Vitamin B12 Urine WBC (Auto) Fluid Glucose Fluid Total Protein Vancomycin Trough Crossmatch 11/26/21 11/26/21 11/26/21 05:00 05:00 05:44 WBC RBC Hgb Hct MCV MCH MCHC RDW Plt Count Eos % (Auto) Eos # (Auto) Seg Neuts % (Manual) Lymphocytes % (Manual) Seg Neutrophils # Seg Neutrophils # Man Lymphocytes # (Manual) Monocytes # (Manual) PT 16.9 H INR 1.24 H D-Dimer ABG pH ABG pO2 ABG HCO3 ABG O2 Saturation ABG Base Excess ABG Hemoglobin Oxyhemoglobin Sodium Potassium Chloride Carbon Dioxide BUN 31 H Creatinine Glucose 104 H POC Glucose 110 H Lactic Acid Calcium 7.9 L Phosphorus Magnesium AST ALT Alkaline Phosphatase Lactate Dehydrogenase Troponin T C-Reactive Protein NT-Pro-B Natriuret Pep Total Protein Albumin LDL Cholesterol Direct Vitamin B12 Urine WBC (Auto) Fluid Glucose Fluid Total Protein Vancomycin Trough Crossmatch 11/26/21 11/27/21 11/27/21 23:55 07:40 07:40 WBC RBC 3.18 L Hgb 8.5 L Hct 27.0 L MCV MCH 27 L MCHC RDW 21.2 H Plt Count Eos % (Auto) Eos # (Auto) Seg Neuts % (Manual) Lymphocytes % (Manual) Seg Neutrophils # Seg Neutrophils # Man Lymphocytes # (Manual) Monocytes # (Manual) PT INR D-Dimer ABG pH ABG pO2 ABG HCO3 ABG O2 Saturation ABG Base Excess ABG Hemoglobin Oxyhemoglobin Sodium Potassium Chloride Carbon Dioxide BUN 27 H Creatinine Glucose 112 H POC Glucose 63 L Lactic Acid Calcium 7.6 L Phosphorus Magnesium AST ALT Alkaline Phosphatase Lactate Dehydrogenase Troponin T C-Reactive Protein NT-Pro-B Natriuret Pep Total Protein Albumin LDL Cholesterol Direct Vitamin B12 Urine WBC (Auto) Fluid Glucose Fluid Total Protein Vancomycin Trough Crossmatch 11/27/21 11/27/21 11/27/21 12:04 13:40 13:40 WBC RBC 3.31 L Hgb 8.7 L Hct 28.0 L MCV MCH 26 L MCHC RDW 20.7 H Plt Count Eos % (Auto) Eos # (Auto) Seg Neuts % (Manual) Lymphocytes % (Manual) Seg Neutrophils # Seg Neutrophils # Man Lymphocytes # (Manual) Monocytes # (Manual) PT INR D-Dimer ABG pH ABG pO2 ABG HCO3 ABG O2 Saturation ABG Base Excess ABG Hemoglobin Oxyhemoglobin Sodium 136 L Potassium Chloride Carbon Dioxide BUN 25 H Creatinine Glucose 127 H POC Glucose 109 H Lactic Acid Calcium 7.6 L Phosphorus Magnesium 1.40 L AST ALT Alkaline Phosphatase Lactate Dehydrogenase Troponin T C-Reactive Protein NT-Pro-B Natriuret Pep Total Protein Albumin LDL Cholesterol Direct Vitamin B12 Urine WBC (Auto) Fluid Glucose Fluid Total Protein Vancomycin Trough Crossmatch 11/27/21 11/27/21 11/28/21 17:44 23:33 12:20 WBC RBC Hgb Hct MCV MCH MCHC RDW Plt Count Eos % (Auto) Eos # (Auto) Seg Neuts % (Manual) Lymphocytes % (Manual) Seg Neutrophils # Seg Neutrophils # Man Lymphocytes # (Manual) Monocytes # (Manual) PT INR D-Dimer ABG pH ABG pO2 ABG HCO3 ABG O2 Saturation ABG Base Excess ABG Hemoglobin Oxyhemoglobin Sodium Potassium Chloride Carbon Dioxide BUN Creatinine Glucose POC Glucose 107 H 108 H 114 H Lactic Acid Calcium Phosphorus Magnesium AST ALT Alkaline Phosphatase Lactate Dehydrogenase Troponin T C-Reactive Protein NT-Pro-B Natriuret Pep Total Protein Albumin LDL Cholesterol Direct Vitamin B12 Urine WBC (Auto) Fluid Glucose Fluid Total Protein Vancomycin Trough Crossmatch 11/29/21 11/29/21 11/29/21 00:09 03:20 03:20 WBC RBC 3.05 L Hgb 8.2 L Hct 25.8 L MCV MCH 27 L MCHC RDW 20.9 H Plt Count Eos % (Auto) Eos # (Auto) Seg Neuts % (Manual) Lymphocytes % (Manual) Seg Neutrophils # Seg Neutrophils # Man Lymphocytes # (Manual) Monocytes # (Manual) PT INR D-Dimer ABG pH ABG pO2 ABG HCO3 ABG O2 Saturation ABG Base Excess ABG Hemoglobin Oxyhemoglobin Sodium 133 L Potassium Chloride Carbon Dioxide BUN 24 H Creatinine Glucose 137 H POC Glucose 134 H Lactic Acid Calcium 7.4 L Phosphorus Magnesium AST ALT Alkaline Phosphatase Lactate Dehydrogenase Troponin T C-Reactive Protein NT-Pro-B Natriuret Pep Total Protein Albumin LDL Cholesterol Direct Vitamin B12 Urine WBC (Auto) Fluid Glucose Fluid Total Protein Vancomycin Trough Crossmatch 11/29/21 11/29/21 11/29/21 05:38 11:39 17:11 WBC RBC Hgb Hct MCV MCH MCHC RDW Plt Count Eos % (Auto) Eos # (Auto) Seg Neuts % (Manual) Lymphocytes % (Manual) Seg Neutrophils # Seg Neutrophils # Man Lymphocytes # (Manual) Monocytes # (Manual) PT INR D-Dimer ABG pH ABG pO2 ABG HCO3 ABG O2 Saturation ABG Base Excess ABG Hemoglobin Oxyhemoglobin Sodium Potassium Chloride Carbon Dioxide BUN Creatinine Glucose POC Glucose 117 H 143 H 124 H Lactic Acid Calcium Phosphorus Magnesium AST ALT Alkaline Phosphatase Lactate Dehydrogenase Troponin T C-Reactive Protein NT-Pro-B Natriuret Pep Total Protein Albumin LDL Cholesterol Direct Vitamin B12 Urine WBC (Auto) Fluid Glucose Fluid Total Protein Vancomycin Trough Crossmatch 11/29/21 11/30/21 11/30/21 20:15 05:40 05:40 WBC 12.6 H RBC 3.41 L Hgb 9.1 L Hct 28.9 L MCV MCH 27 L MCHC RDW 20.4 H Plt Count Eos % (Auto) Eos # (Auto) Seg Neuts % (Manual) Lymphocytes % (Manual) Seg Neutrophils # Seg Neutrophils # Man Lymphocytes # (Manual) Monocytes # (Manual) PT INR D-Dimer ABG pH ABG pO2 ABG HCO3 ABG O2 Saturation ABG Base Excess ABG Hemoglobin Oxyhemoglobin Sodium Potassium Chloride Carbon Dioxide BUN 24 H Creatinine Glucose 131 H POC Glucose Lactic Acid Calcium 7.6 L Phosphorus Magnesium AST ALT Alkaline Phosphatase Lactate Dehydrogenase Troponin T 0.045 H C-Reactive Protein NT-Pro-B Natriuret Pep Total Protein Albumin LDL Cholesterol Direct 25 L Vitamin B12 Urine WBC (Auto) Fluid Glucose Fluid Total Protein Vancomycin Trough Crossmatch 11/30/21 11/30/21 12/01/21 11:29 16:51 05:00 WBC RBC 2.97 L Hgb 8.0 L Hct 25.0 L MCV MCH 27 L MCHC RDW 20.8 H Plt Count Eos % (Auto) Eos # (Auto) Seg Neuts % (Manual) Lymphocytes % (Manual) Seg Neutrophils # Seg Neutrophils # Man Lymphocytes # (Manual) Monocytes # (Manual) PT INR D-Dimer ABG pH ABG pO2 ABG HCO3 ABG O2 Saturation ABG Base Excess ABG Hemoglobin Oxyhemoglobin Sodium Potassium Chloride Carbon Dioxide BUN Creatinine Glucose POC Glucose 123 H 114 H Lactic Acid Calcium Phosphorus Magnesium AST ALT Alkaline Phosphatase Lactate Dehydrogenase Troponin T C-Reactive Protein NT-Pro-B Natriuret Pep Total Protein Albumin LDL Cholesterol Direct Vitamin B12 Urine WBC (Auto) Fluid Glucose Fluid Total Protein Vancomycin Trough Crossmatch 12/01/21 12/01/21 12/01/21 05:00 05:25 11:54 WBC RBC Hgb Hct MCV MCH MCHC RDW Plt Count Eos % (Auto) Eos # (Auto) Seg Neuts % (Manual) Lymphocytes % (Manual) Seg Neutrophils # Seg Neutrophils # Man Lymphocytes # (Manual) Monocytes # (Manual) PT INR D-Dimer ABG pH ABG pO2 ABG HCO3 ABG O2 Saturation ABG Base Excess ABG Hemoglobin Oxyhemoglobin Sodium 136 L Potassium Chloride Carbon Dioxide BUN 24 H Creatinine Glucose 117 H POC Glucose 108 H 107 H Lactic Acid Calcium 7.5 L Phosphorus Magnesium 1.60 L AST ALT Alkaline Phosphatase Lactate Dehydrogenase Troponin T C-Reactive Protein NT-Pro-B Natriuret Pep Total Protein Albumin LDL Cholesterol Direct Vitamin B12 Urine WBC (Auto) Fluid Glucose Fluid Total Protein Vancomycin Trough Crossmatch 12/01/21 12/02/21 12/02/21 17:40 00:07 04:20 WBC RBC 2.92 L Hgb 7.7 L Hct 24.3 L MCV MCH 26 L MCHC RDW 20.5 H Plt Count Eos % (Auto) Eos # (Auto) Seg Neuts % (Manual) Lymphocytes % (Manual) Seg Neutrophils # Seg Neutrophils # Man Lymphocytes # (Manual) Monocytes # (Manual) PT INR D-Dimer ABG pH ABG pO2 ABG HCO3 ABG O2 Saturation ABG Base Excess ABG Hemoglobin Oxyhemoglobin Sodium Potassium Chloride Carbon Dioxide BUN Creatinine Glucose POC Glucose 123 H 110 H Lactic Acid Calcium Phosphorus Magnesium AST ALT Alkaline Phosphatase Lactate Dehydrogenase Troponin T C-Reactive Protein NT-Pro-B Natriuret Pep Total Protein Albumin LDL Cholesterol Direct Vitamin B12 Urine WBC (Auto) Fluid Glucose Fluid Total Protein Vancomycin Trough Crossmatch 12/02/21 12/02/21 12/02/21 04:20 11:17 18:20 WBC RBC Hgb Hct MCV MCH MCHC RDW Plt Count Eos % (Auto) Eos # (Auto) Seg Neuts % (Manual) Lymphocytes % (Manual) Seg Neutrophils # Seg Neutrophils # Man Lymphocytes # (Manual) Monocytes # (Manual) PT INR D-Dimer ABG pH ABG pO2 ABG HCO3 ABG O2 Saturation ABG Base Excess ABG Hemoglobin Oxyhemoglobin Sodium 135 L Potassium Chloride Carbon Dioxide BUN 26 H Creatinine Glucose 121 H POC Glucose 117 H 113 H Lactic Acid Calcium 7.4 L Phosphorus Magnesium AST ALT Alkaline Phosphatase Lactate Dehydrogenase Troponin T C-Reactive Protein NT-Pro-B Natriuret Pep Total Protein Albumin LDL Cholesterol Direct Vitamin B12 Urine WBC (Auto) Fluid Glucose Fluid Total Protein Vancomycin Trough Crossmatch 12/03/21 12/03/21 12/03/21 00:12 04:00 04:00 WBC RBC 2.99 L Hgb 7.8 L Hct 24.6 L MCV MCH 26 L MCHC RDW 20.2 H Plt Count Eos % (Auto) Eos # (Auto) Seg Neuts % (Manual) Lymphocytes % (Manual) Seg Neutrophils # Seg Neutrophils # Man Lymphocytes # (Manual) Monocytes # (Manual) PT INR D-Dimer ABG pH ABG pO2 ABG HCO3 ABG O2 Saturation ABG Base Excess ABG Hemoglobin Oxyhemoglobin Sodium 136 L Potassium Chloride Carbon Dioxide BUN 27 H Creatinine Glucose 133 H POC Glucose 121 H Lactic Acid Calcium 7.5 L Phosphorus Magnesium AST ALT Alkaline Phosphatase Lactate Dehydrogenase Troponin T C-Reactive Protein NT-Pro-B Natriuret Pep Total Protein Albumin LDL Cholesterol Direct Vitamin B12 Urine WBC (Auto) Fluid Glucose Fluid Total Protein Vancomycin Trough Crossmatch 12/03/21 12/03/21 12/03/21 06:30 11:13 16:00 WBC RBC Hgb Hct MCV MCH MCHC RDW Plt Count Eos % (Auto) Eos # (Auto) Seg Neuts % (Manual) Lymphocytes % (Manual) Seg Neutrophils # Seg Neutrophils # Man Lymphocytes # (Manual) Monocytes # (Manual) PT INR D-Dimer ABG pH ABG pO2 ABG HCO3 ABG O2 Saturation ABG Base Excess ABG Hemoglobin Oxyhemoglobin Sodium Potassium Chloride Carbon Dioxide BUN Creatinine Glucose POC Glucose 129 H 125 H 125 H Lactic Acid Calcium Phosphorus Magnesium AST ALT Alkaline Phosphatase Lactate Dehydrogenase Troponin T C-Reactive Protein NT-Pro-B Natriuret Pep Total Protein Albumin LDL Cholesterol Direct Vitamin B12 Urine WBC (Auto) Fluid Glucose Fluid Total Protein Vancomycin Trough Crossmatch 12/03/21 12/04/21 12/04/21 23:32 04:00 05:36 WBC RBC Hgb Hct MCV MCH MCHC RDW Plt Count Eos % (Auto) Eos # (Auto) Seg Neuts % (Manual) Lymphocytes % (Manual) Seg Neutrophils # Seg Neutrophils # Man Lymphocytes # (Manual) Monocytes # (Manual) PT INR D-Dimer ABG pH ABG pO2 ABG HCO3 ABG O2 Saturation ABG Base Excess ABG Hemoglobin Oxyhemoglobin Sodium Potassium 3.5 L Chloride Carbon Dioxide BUN 26 H Creatinine 0.5 L Glucose 151 H POC Glucose 133 H 142 H Lactic Acid Calcium 8.3 L Phosphorus Magnesium AST ALT Alkaline Phosphatase Lactate Dehydrogenase Troponin T C-Reactive Protein NT-Pro-B Natriuret Pep Total Protein Albumin LDL Cholesterol Direct Vitamin B12 Urine WBC (Auto) Fluid Glucose Fluid Total Protein Vancomycin Trough Crossmatch 12/04/21 12/04/21 12/05/21 11:24 15:58 04:36 WBC RBC Hgb Hct MCV MCH MCHC RDW Plt Count Eos % (Auto) Eos # (Auto) Seg Neuts % (Manual) Lymphocytes % (Manual) Seg Neutrophils # Seg Neutrophils # Man Lymphocytes # (Manual) Monocytes # (Manual) PT INR D-Dimer ABG pH ABG pO2 ABG HCO3 ABG O2 Saturation ABG Base Excess ABG Hemoglobin Oxyhemoglobin Sodium Potassium Chloride Carbon Dioxide BUN 21 H Creatinine 0.5 L Glucose 119 H POC Glucose 130 H 111 H Lactic Acid Calcium 8.3 L Phosphorus Magnesium AST ALT Alkaline Phosphatase Lactate Dehydrogenase Troponin T C-Reactive Protein NT-Pro-B Natriuret Pep Total Protein Albumin LDL Cholesterol Direct Vitamin B12 Urine WBC (Auto) Fluid Glucose Fluid Total Protein Vancomycin Trough Crossmatch 12/05/21 12/05/21 12/05/21 05:15 10:40 11:12 WBC RBC 2.98 L Hgb 8.1 L Hct 24.6 L MCV MCH 27 L MCHC RDW 20.8 H Plt Count Eos % (Auto) Eos # (Auto) Seg Neuts % (Manual) Lymphocytes % (Manual) Seg Neutrophils # Seg Neutrophils # Man Lymphocytes # (Manual) Monocytes # (Manual) PT INR D-Dimer ABG pH ABG pO2 ABG HCO3 ABG O2 Saturation ABG Base Excess ABG Hemoglobin Oxyhemoglobin Sodium Potassium Chloride Carbon Dioxide BUN Creatinine Glucose POC Glucose 107 H 110 H Lactic Acid Calcium Phosphorus Magnesium AST ALT Alkaline Phosphatase Lactate Dehydrogenase Troponin T C-Reactive Protein NT-Pro-B Natriuret Pep Total Protein Albumin LDL Cholesterol Direct Vitamin B12 Urine WBC (Auto) Fluid Glucose Fluid Total Protein Vancomycin Trough Crossmatch 12/05/21 12/06/21 12/06/21 23:39 04:25 04:25 WBC RBC 2.95 L Hgb 7.9 L Hct 24.7 L MCV MCH 27 L MCHC RDW 20.9 H Plt Count Eos % (Auto) Eos # (Auto) Seg Neuts % (Manual) Lymphocytes % (Manual) Seg Neutrophils # Seg Neutrophils # Man Lymphocytes # (Manual) Monocytes # (Manual) PT INR D-Dimer ABG pH ABG pO2 ABG HCO3 ABG O2 Saturation ABG Base Excess ABG Hemoglobin Oxyhemoglobin Sodium Potassium Chloride Carbon Dioxide BUN 22 H Creatinine 0.5 L Glucose 136 H POC Glucose 118 H Lactic Acid Calcium 8.2 L Phosphorus Magnesium AST ALT Alkaline Phosphatase Lactate Dehydrogenase Troponin T C-Reactive Protein NT-Pro-B Natriuret Pep Total Protein Albumin LDL Cholesterol Direct Vitamin B12 Urine WBC (Auto) Fluid Glucose Fluid Total Protein Vancomycin Trough Crossmatch 12/06/21 12/06/21 12/07/21 05:28 11:27 04:00 WBC RBC Hgb 7.2 L Hct 21.8 L MCV MCH MCHC RDW Plt Count Eos % (Auto) Eos # (Auto) Seg Neuts % (Manual) Lymphocytes % (Manual) Seg Neutrophils # Seg Neutrophils # Man Lymphocytes # (Manual) Monocytes # (Manual) PT INR D-Dimer ABG pH ABG pO2 ABG HCO3 ABG O2 Saturation ABG Base Excess ABG Hemoglobin Oxyhemoglobin Sodium Potassium Chloride Carbon Dioxide BUN Creatinine Glucose POC Glucose 142 H 126 H Lactic Acid Calcium Phosphorus Magnesium AST ALT Alkaline Phosphatase Lactate Dehydrogenase Troponin T C-Reactive Protein NT-Pro-B Natriuret Pep Total Protein Albumin LDL Cholesterol Direct Vitamin B12 Urine WBC (Auto) Fluid Glucose Fluid Total Protein Vancomycin Trough Crossmatch 12/07/21 12/07/21 12/07/21 04:00 05:30 11:12 WBC RBC Hgb Hct MCV MCH MCHC RDW Plt Count Eos % (Auto) Eos # (Auto) Seg Neuts % (Manual) Lymphocytes % (Manual) Seg Neutrophils # Seg Neutrophils # Man Lymphocytes # (Manual) Monocytes # (Manual) PT INR D-Dimer ABG pH ABG pO2 ABG HCO3 ABG O2 Saturation ABG Base Excess ABG Hemoglobin Oxyhemoglobin Sodium Potassium Chloride Carbon Dioxide BUN 22 H Creatinine Glucose 119 H POC Glucose 121 H 124 H Lactic Acid Calcium 8.0 L Phosphorus Magnesium AST ALT Alkaline Phosphatase Lactate Dehydrogenase Troponin T C-Reactive Protein NT-Pro-B Natriuret Pep Total Protein Albumin LDL Cholesterol Direct Vitamin B12 Urine WBC (Auto) Fluid Glucose Fluid Total Protein Vancomycin Trough Crossmatch 12/08/21 12/08/21 12/08/21 04:00 04:00 05:39 WBC RBC 2.81 L Hgb 7.7 L Hct 23.5 L MCV MCH MCHC RDW 21.2 H Plt Count Eos % (Auto) Eos # (Auto) Seg Neuts % (Manual) Lymphocytes % (Manual) Seg Neutrophils # Seg Neutrophils # Man Lymphocytes # (Manual) Monocytes # (Manual) PT INR D-Dimer ABG pH ABG pO2 ABG HCO3 ABG O2 Saturation ABG Base Excess ABG Hemoglobin Oxyhemoglobin Sodium 135 L Potassium Chloride Carbon Dioxide BUN 23 H Creatinine Glucose 109 H POC Glucose 112 H Lactic Acid Calcium Phosphorus Magnesium AST ALT Alkaline Phosphatase Lactate Dehydrogenase Troponin T C-Reactive Protein NT-Pro-B Natriuret Pep Total Protein Albumin LDL Cholesterol Direct Vitamin B12 Urine WBC (Auto) Fluid Glucose Fluid Total Protein Vancomycin Trough Crossmatch 12/08/21 12/09/21 12/09/21 11:03 04:20 04:20 WBC RBC 2.67 L Hgb 7.6 L Hct 22.1 L MCV MCH MCHC RDW 20.8 H Plt Count Eos % (Auto) Eos # (Auto) Seg Neuts % (Manual) Lymphocytes % (Manual) Seg Neutrophils # Seg Neutrophils # Man Lymphocytes # (Manual) Monocytes # (Manual) PT INR D-Dimer ABG pH ABG pO2 ABG HCO3 ABG O2 Saturation ABG Base Excess ABG Hemoglobin Oxyhemoglobin Sodium 135 L Potassium Chloride 97.8 L Carbon Dioxide BUN 26 H Creatinine Glucose 119 H POC Glucose 108 H Lactic Acid Calcium 7.7 L Phosphorus Magnesium AST ALT Alkaline Phosphatase Lactate Dehydrogenase Troponin T C-Reactive Protein NT-Pro-B Natriuret Pep Total Protein Albumin LDL Cholesterol Direct Vitamin B12 Urine WBC (Auto) Fluid Glucose Fluid Total Protein Vancomycin Trough Crossmatch 12/09/21 12/10/21 12/10/21 11:26 04:33 11:12 WBC RBC Hgb Hct MCV MCH MCHC RDW Plt Count Eos % (Auto) Eos # (Auto) Seg Neuts % (Manual) Lymphocytes % (Manual) Seg Neutrophils # Seg Neutrophils # Man Lymphocytes # (Manual) Monocytes # (Manual) PT INR D-Dimer ABG pH ABG pO2 ABG HCO3 ABG O2 Saturation ABG Base Excess ABG Hemoglobin Oxyhemoglobin Sodium 136 L Potassium Chloride Carbon Dioxide BUN 27 H Creatinine Glucose 117 H POC Glucose 110 H 117 H Lactic Acid Calcium 8.2 L Phosphorus Magnesium AST ALT Alkaline Phosphatase Lactate Dehydrogenase Troponin T C-Reactive Protein NT-Pro-B Natriuret Pep Total Protein Albumin LDL Cholesterol Direct Vitamin B12 Urine WBC (Auto) Fluid Glucose Fluid Total Protein Vancomycin Trough Crossmatch 12/10/21 12/10/21 12/11/21 16:02 23:31 04:35 WBC RBC 2.57 L Hgb 7.0 L Hct 21.4 L MCV MCH 27 L MCHC RDW 21.1 H Plt Count Eos % (Auto) Eos # (Auto) Seg Neuts % (Manual) Lymphocytes % (Manual) Seg Neutrophils # Seg Neutrophils # Man Lymphocytes # (Manual) Monocytes # (Manual) PT INR D-Dimer ABG pH ABG pO2 ABG HCO3 ABG O2 Saturation ABG Base Excess ABG Hemoglobin Oxyhemoglobin Sodium Potassium Chloride Carbon Dioxide BUN Creatinine Glucose POC Glucose 137 H 111 H Lactic Acid Calcium Phosphorus Magnesium AST ALT Alkaline Phosphatase Lactate Dehydrogenase Troponin T C-Reactive Protein NT-Pro-B Natriuret Pep Total Protein Albumin LDL Cholesterol Direct Vitamin B12 Urine WBC (Auto) Fluid Glucose Fluid Total Protein Vancomycin Trough Crossmatch 12/11/21 12/11/21 12/11/21 04:35 12:46 16:07 WBC RBC Hgb Hct MCV MCH MCHC RDW Plt Count Eos % (Auto) Eos # (Auto) Seg Neuts % (Manual) Lymphocytes % (Manual) Seg Neutrophils # Seg Neutrophils # Man Lymphocytes # (Manual) Monocytes # (Manual) PT INR D-Dimer ABG pH ABG pO2 ABG HCO3 ABG O2 Saturation ABG Base Excess ABG Hemoglobin Oxyhemoglobin Sodium 136 L Potassium Chloride Carbon Dioxide BUN 27 H Creatinine Glucose 112 H POC Glucose 115 H 111 H Lactic Acid Calcium 7.6 L Phosphorus Magnesium AST ALT Alkaline Phosphatase Lactate Dehydrogenase Troponin T C-Reactive Protein NT-Pro-B Natriuret Pep Total Protein Albumin LDL Cholesterol Direct Vitamin B12 Urine WBC (Auto) Fluid Glucose Fluid Total Protein Vancomycin Trough Crossmatch 12/11/21 12/12/21 12/12/21 23:42 04:30 04:30 WBC RBC 2.60 L Hgb 7.1 L Hct 21.5 L MCV MCH 27 L MCHC RDW 20.3 H Plt Count Eos % (Auto) Eos # (Auto) Seg Neuts % (Manual) Lymphocytes % (Manual) Seg Neutrophils # Seg Neutrophils # Man Lymphocytes # (Manual) Monocytes # (Manual) PT INR D-Dimer ABG pH ABG pO2 ABG HCO3 ABG O2 Saturation ABG Base Excess ABG Hemoglobin Oxyhemoglobin Sodium 135 L Potassium Chloride 97.9 L Carbon Dioxide BUN 26 H Creatinine 0.5 L Glucose 138 H POC Glucose 115 H Lactic Acid Calcium 8.2 L Phosphorus Magnesium AST ALT Alkaline Phosphatase Lactate Dehydrogenase Troponin T C-Reactive Protein NT-Pro-B Natriuret Pep Total Protein Albumin LDL Cholesterol Direct Vitamin B12 Urine WBC (Auto) Fluid Glucose Fluid Total Protein Vancomycin Trough Crossmatch 12/12/21 12/12/21 12/12/21 04:30 05:10 11:51 WBC RBC Hgb Hct MCV MCH MCHC RDW Plt Count Eos % (Auto) Eos # (Auto) Seg Neuts % (Manual) Lymphocytes % (Manual) Seg Neutrophils # Seg Neutrophils # Man Lymphocytes # (Manual) Monocytes # (Manual) PT INR D-Dimer ABG pH ABG pO2 ABG HCO3 ABG O2 Saturation ABG Base Excess ABG Hemoglobin Oxyhemoglobin Sodium Potassium Chloride Carbon Dioxide BUN Creatinine Glucose POC Glucose 119 H 119 H Lactic Acid Calcium Phosphorus Magnesium AST ALT Alkaline Phosphatase Lactate Dehydrogenase Troponin T C-Reactive Protein NT-Pro-B Natriuret Pep Total Protein Albumin LDL Cholesterol Direct Vitamin B12 Urine WBC (Auto) Fluid Glucose Fluid Total Protein Vancomycin Trough Crossmatch See Detail 12/13/21 12/13/21 12/13/21 00:52 04:00 04:00 WBC RBC 2.73 L Hgb 7.4 L Hct 22.8 L MCV MCH 27 L MCHC RDW 20.5 H Plt Count Eos % (Auto) Eos # (Auto) Seg Neuts % (Manual) Lymphocytes % (Manual) Seg Neutrophils # Seg Neutrophils # Man Lymphocytes # (Manual) Monocytes # (Manual) PT INR D-Dimer ABG pH ABG pO2 ABG HCO3 ABG O2 Saturation ABG Base Excess ABG Hemoglobin Oxyhemoglobin Sodium 134 L Potassium Chloride 96.7 L Carbon Dioxide BUN 23 H Creatinine 0.5 L Glucose 131 H POC Glucose 131 H Lactic Acid Calcium 8.1 L Phosphorus Magnesium AST ALT Alkaline Phosphatase Lactate Dehydrogenase Troponin T C-Reactive Protein NT-Pro-B Natriuret Pep Total Protein Albumin LDL Cholesterol Direct Vitamin B12 Urine WBC (Auto) Fluid Glucose Fluid Total Protein Vancomycin Trough Crossmatch 12/13/21 12/13/21 12/13/21 05:23 12:11 17:18 WBC RBC Hgb Hct MCV MCH MCHC RDW Plt Count Eos % (Auto) Eos # (Auto) Seg Neuts % (Manual) Lymphocytes % (Manual) Seg Neutrophils # Seg Neutrophils # Man Lymphocytes # (Manual) Monocytes # (Manual) PT INR D-Dimer ABG pH ABG pO2 ABG HCO3 ABG O2 Saturation ABG Base Excess ABG Hemoglobin Oxyhemoglobin Sodium Potassium Chloride Carbon Dioxide BUN Creatinine Glucose POC Glucose 121 H 143 H 148 H Lactic Acid Calcium Phosphorus Magnesium AST ALT Alkaline Phosphatase Lactate Dehydrogenase Troponin T C-Reactive Protein NT-Pro-B Natriuret Pep Total Protein Albumin LDL Cholesterol Direct Vitamin B12 Urine WBC (Auto) Fluid Glucose Fluid Total Protein Vancomycin Trough Crossmatch 12/14/21 12/14/21 12/14/21 00:54 04:20 04:20 WBC RBC 2.39 L Hgb 6.5 L Hct 20.3 L MCV MCH 27 L MCHC RDW 20.3 H Plt Count Eos % (Auto) Eos # (Auto) Seg Neuts % (Manual) Lymphocytes % (Manual) Seg Neutrophils # Seg Neutrophils # Man Lymphocytes # (Manual) Monocytes # (Manual) PT INR D-Dimer ABG pH ABG pO2 ABG HCO3 ABG O2 Saturation ABG Base Excess ABG Hemoglobin Oxyhemoglobin Sodium 130 L Potassium Chloride 93.5 L Carbon Dioxide BUN 25 H Creatinine Glucose 123 H POC Glucose 123 H Lactic Acid Calcium 8.0 L Phosphorus Magnesium AST ALT Alkaline Phosphatase Lactate Dehydrogenase Troponin T C-Reactive Protein NT-Pro-B Natriuret Pep Total Protein Albumin LDL Cholesterol Direct Vitamin B12 Urine WBC (Auto) Fluid Glucose Fluid Total Protein Vancomycin Trough Crossmatch 12/14/21 12/14/21 12/14/21 05:06 08:17 10:30 WBC RBC Hgb Hct MCV MCH MCHC RDW Plt Count Eos % (Auto) Eos # (Auto) Seg Neuts % (Manual) Lymphocytes % (Manual) Seg Neutrophils # Seg Neutrophils # Man Lymphocytes # (Manual) Monocytes # (Manual) PT INR D-Dimer ABG pH ABG pO2 ABG HCO3 ABG O2 Saturation ABG Base Excess ABG Hemoglobin Oxyhemoglobin Sodium Potassium Chloride Carbon Dioxide BUN Creatinine Glucose POC Glucose 131 H 119 H Lactic Acid Calcium Phosphorus Magnesium AST ALT Alkaline Phosphatase Lactate Dehydrogenase Troponin T C-Reactive Protein NT-Pro-B Natriuret Pep Total Protein Albumin LDL Cholesterol Direct Vitamin B12 Urine WBC (Auto) Fluid Glucose Fluid Total Protein Vancomycin Trough Crossmatch See Detail 12/14/21 12/14/21 12/14/21 12:15 16:37 23:27 WBC RBC Hgb Hct MCV MCH MCHC RDW Plt Count Eos % (Auto) Eos # (Auto) Seg Neuts % (Manual) Lymphocytes % (Manual) Seg Neutrophils # Seg Neutrophils # Man Lymphocytes # (Manual) Monocytes # (Manual) PT INR D-Dimer ABG pH ABG pO2 ABG HCO3 ABG O2 Saturation ABG Base Excess ABG Hemoglobin Oxyhemoglobin Sodium Potassium Chloride Carbon Dioxide BUN Creatinine Glucose POC Glucose 147 H 141 H 130 H Lactic Acid Calcium Phosphorus Magnesium AST ALT Alkaline Phosphatase Lactate Dehydrogenase Troponin T C-Reactive Protein NT-Pro-B Natriuret Pep Total Protein Albumin LDL Cholesterol Direct Vitamin B12 Urine WBC (Auto) Fluid Glucose Fluid Total Protein Vancomycin Trough Crossmatch 12/15/21 12/15/21 12/15/21 05:00 07:00 07:00 WBC 12.3 H RBC 3.27 L Hgb 8.8 L Hct 27.5 L D MCV MCH 27 L MCHC RDW 19.0 H Plt Count Eos % (Auto) Eos # (Auto) Seg Neuts % (Manual) Lymphocytes % (Manual) Seg Neutrophils # Seg Neutrophils # Man Lymphocytes # (Manual) Monocytes # (Manual) PT INR D-Dimer ABG pH ABG pO2 ABG HCO3 ABG O2 Saturation ABG Base Excess ABG Hemoglobin Oxyhemoglobin Sodium 134 L Potassium Chloride 95.7 L Carbon Dioxide BUN 28 H Creatinine Glucose 129 H POC Glucose 129 H Lactic Acid Calcium 8.2 L Phosphorus Magnesium AST ALT Alkaline Phosphatase Lactate Dehydrogenase Troponin T C-Reactive Protein NT-Pro-B Natriuret Pep Total Protein Albumin LDL Cholesterol Direct Vitamin B12 Urine WBC (Auto) Fluid Glucose Fluid Total Protein Vancomycin Trough Crossmatch 12/15/21 12/15/21 12/15/21 11:18 16:00 23:39 WBC RBC Hgb Hct MCV MCH MCHC RDW Plt Count Eos % (Auto) Eos # (Auto) Seg Neuts % (Manual) Lymphocytes % (Manual) Seg Neutrophils # Seg Neutrophils # Man Lymphocytes # (Manual) Monocytes # (Manual) PT INR D-Dimer ABG pH ABG pO2 ABG HCO3 ABG O2 Saturation ABG Base Excess ABG Hemoglobin Oxyhemoglobin Sodium Potassium Chloride Carbon Dioxide BUN Creatinine Glucose POC Glucose 139 H 137 H 146 H Lactic Acid Calcium Phosphorus Magnesium AST ALT Alkaline Phosphatase Lactate Dehydrogenase Troponin T C-Reactive Protein NT-Pro-B Natriuret Pep Total Protein Albumin LDL Cholesterol Direct Vitamin B12 Urine WBC (Auto) Fluid Glucose Fluid Total Protein Vancomycin Trough Crossmatch 12/16/21 12/16/21 12/16/21 05:24 10:21 10:21 WBC 15.3 H RBC 3.24 L Hgb 8.9 L Hct 27.7 L MCV MCH MCHC RDW 19.0 H Plt Count Eos % (Auto) Eos # (Auto) Seg Neuts % (Manual) Lymphocytes % (Manual) Seg Neutrophils # Seg Neutrophils # Man Lymphocytes # (Manual) Monocytes # (Manual) PT INR D-Dimer ABG pH ABG pO2 ABG HCO3 ABG O2 Saturation ABG Base Excess ABG Hemoglobin Oxyhemoglobin Sodium 131 L Potassium 3.5 L Chloride 92.7 L Carbon Dioxide BUN 36 H Creatinine Glucose 160 H POC Glucose 121 H Lactic Acid Calcium Phosphorus Magnesium 1.60 L AST ALT Alkaline Phosphatase Lactate Dehydrogenase Troponin T C-Reactive Protein NT-Pro-B Natriuret Pep Total Protein Albumin LDL Cholesterol Direct Vitamin B12 Urine WBC (Auto) Fluid Glucose Fluid Total Protein Vancomycin Trough Crossmatch 12/16/21 12/16/21 12/16/21 11:21 18:28 20:52 WBC RBC Hgb Hct MCV MCH MCHC RDW Plt Count Eos % (Auto) Eos # (Auto) Seg Neuts % (Manual) Lymphocytes % (Manual) Seg Neutrophils # Seg Neutrophils # Man Lymphocytes # (Manual) Monocytes # (Manual) PT INR D-Dimer ABG pH 7.479 H ABG pO2 79.3 L ABG HCO3 27.3 H ABG O2 Saturation ABG Base Excess 3.6 H ABG Hemoglobin 9.1 L Oxyhemoglobin 94.9 L Sodium Potassium Chloride Carbon Dioxide BUN Creatinine Glucose POC Glucose 153 H 132 H Lactic Acid Calcium Phosphorus Magnesium AST ALT Alkaline Phosphatase Lactate Dehydrogenase Troponin T C-Reactive Protein NT-Pro-B Natriuret Pep Total Protein Albumin LDL Cholesterol Direct Vitamin B12 Urine WBC (Auto) Fluid Glucose Fluid Total Protein Vancomycin Trough Crossmatch 12/16/21 12/17/21 12/17/21 23:30 04:25 04:25 WBC 12.3 H RBC 2.16 L Hgb 6.0 L Hct 18.1 L* D MCV MCH MCHC RDW 19.4 H Plt Count Eos % (Auto) Eos # (Auto) Seg Neuts % (Manual) Lymphocytes % (Manual) Seg Neutrophils # Seg Neutrophils # Man Lymphocytes # (Manual) Monocytes # (Manual) PT INR D-Dimer ABG pH ABG pO2 ABG HCO3 ABG O2 Saturation ABG Base Excess ABG Hemoglobin Oxyhemoglobin Sodium 132 L Potassium 3.2 L Chloride 112.0 H Carbon Dioxide BUN 32 H Creatinine Glucose 122 H POC Glucose 137 H Lactic Acid Calcium 6.8 L D Phosphorus Magnesium AST ALT Alkaline Phosphatase Lactate Dehydrogenase Troponin T C-Reactive Protein NT-Pro-B Natriuret Pep Total Protein Albumin LDL Cholesterol Direct Vitamin B12 Urine WBC (Auto) Fluid Glucose Fluid Total Protein Vancomycin Trough Crossmatch 12/17/21 12/17/21 12/17/21 05:30 11:49 14:45 WBC RBC Hgb 9.7 L D Hct MCV MCH MCHC RDW Plt Count Eos % (Auto) Eos # (Auto) Seg Neuts % (Manual) Lymphocytes % (Manual) Seg Neutrophils # Seg Neutrophils # Man Lymphocytes # (Manual) Monocytes # (Manual) PT INR D-Dimer ABG pH ABG pO2 ABG HCO3 ABG O2 Saturation ABG Base Excess ABG Hemoglobin Oxyhemoglobin Sodium Potassium Chloride Carbon Dioxide BUN Creatinine Glucose POC Glucose 137 H 143 H Lactic Acid Calcium Phosphorus Magnesium AST ALT Alkaline Phosphatase Lactate Dehydrogenase Troponin T C-Reactive Protein NT-Pro-B Natriuret Pep Total Protein Albumin LDL Cholesterol Direct Vitamin B12 Urine WBC (Auto) Fluid Glucose Fluid Total Protein Vancomycin Trough Crossmatch 12/17/21 12/18/21 12/18/21 17:01 05:04 05:04 WBC 13.8 H RBC 3.44 L Hgb 9.9 L Hct 28.8 L MCV MCH MCHC RDW 18.1 H Plt Count Eos % (Auto) Eos # (Auto) Seg Neuts % (Manual) Lymphocytes % (Manual) Seg Neutrophils # Seg Neutrophils # Man Lymphocytes # (Manual) Monocytes # (Manual) PT INR D-Dimer ABG pH ABG pO2 ABG HCO3 ABG O2 Saturation ABG Base Excess ABG Hemoglobin Oxyhemoglobin Sodium 132 L Potassium Chloride 97.4 L Carbon Dioxide BUN 38 H Creatinine Glucose 134 H POC Glucose 132 H Lactic Acid Calcium Phosphorus Magnesium AST ALT Alkaline Phosphatase Lactate Dehydrogenase Troponin T C-Reactive Protein NT-Pro-B Natriuret Pep Total Protein Albumin LDL Cholesterol Direct Vitamin B12 Urine WBC (Auto) Fluid Glucose Fluid Total Protein Vancomycin Trough Crossmatch 12/18/21 12/18/21 12/18/21 05:28 10:57 16:27 WBC RBC Hgb Hct MCV MCH MCHC RDW Plt Count Eos % (Auto) Eos # (Auto) Seg Neuts % (Manual) Lymphocytes % (Manual) Seg Neutrophils # Seg Neutrophils # Man Lymphocytes # (Manual) Monocytes # (Manual) PT INR D-Dimer ABG pH ABG pO2 ABG HCO3 ABG O2 Saturation ABG Base Excess ABG Hemoglobin Oxyhemoglobin Sodium Potassium Chloride Carbon Dioxide BUN Creatinine Glucose POC Glucose 118 H 132 H 130 H Lactic Acid Calcium Phosphorus Magnesium AST ALT Alkaline Phosphatase Lactate Dehydrogenase Troponin T C-Reactive Protein NT-Pro-B Natriuret Pep Total Protein Albumin LDL Cholesterol Direct Vitamin B12 Urine WBC (Auto) Fluid Glucose Fluid Total Protein Vancomycin Trough Crossmatch 12/19/21 12/19/21 12/19/21 00:02 04:41 04:41 WBC 16.0 H RBC 3.45 L Hgb 9.7 L Hct 29.1 L MCV MCH MCHC RDW 17.8 H Plt Count Eos % (Auto) Eos # (Auto) Seg Neuts % (Manual) Lymphocytes % (Manual) Seg Neutrophils # Seg Neutrophils # Man Lymphocytes # (Manual) Monocytes # (Manual) PT INR D-Dimer ABG pH ABG pO2 ABG HCO3 ABG O2 Saturation ABG Base Excess ABG Hemoglobin Oxyhemoglobin Sodium 133 L Potassium Chloride 97.9 L Carbon Dioxide BUN 36 H Creatinine 0.5 L Glucose 126 H POC Glucose 127 H Lactic Acid Calcium 8.3 L Phosphorus Magnesium AST ALT Alkaline Phosphatase Lactate Dehydrogenase Troponin T C-Reactive Protein NT-Pro-B Natriuret Pep Total Protein Albumin LDL Cholesterol Direct Vitamin B12 Urine WBC (Auto) Fluid Glucose Fluid Total Protein Vancomycin Trough Crossmatch 12/19/21 12/19/21 12/19/21 05:26 12:20 16:43 WBC RBC Hgb Hct MCV MCH MCHC RDW Plt Count Eos % (Auto) Eos # (Auto) Seg Neuts % (Manual) Lymphocytes % (Manual) Seg Neutrophils # Seg Neutrophils # Man Lymphocytes # (Manual) Monocytes # (Manual) PT INR D-Dimer ABG pH ABG pO2 ABG HCO3 ABG O2 Saturation ABG Base Excess ABG Hemoglobin Oxyhemoglobin Sodium Potassium Chloride Carbon Dioxide BUN Creatinine Glucose POC Glucose 119 H 145 H 126 H Lactic Acid Calcium Phosphorus Magnesium AST ALT Alkaline Phosphatase Lactate Dehydrogenase Troponin T C-Reactive Protein NT-Pro-B Natriuret Pep Total Protein Albumin LDL Cholesterol Direct Vitamin B12 Urine WBC (Auto) Fluid Glucose Fluid Total Protein Vancomycin Trough Crossmatch 12/19/21 12/20/21 12/20/21 23:30 04:54 04:54 WBC 12.3 H RBC 3.54 L Hgb 10.0 L Hct 29.5 L MCV MCH MCHC RDW 17.8 H Plt Count Eos % (Auto) Eos # (Auto) Seg Neuts % (Manual) 88.0 H Lymphocytes % (Manual) 6.0 L Seg Neutrophils # Seg Neutrophils # Man 10.8 H Lymphocytes # (Manual) 0.7 L Monocytes # (Manual) PT INR D-Dimer ABG pH ABG pO2 ABG HCO3 ABG O2 Saturation ABG Base Excess ABG Hemoglobin Oxyhemoglobin Sodium 131 L Potassium Chloride 96.2 L Carbon Dioxide BUN 36 H Creatinine 0.5 L Glucose 130 H POC Glucose 117 H Lactic Acid Calcium Phosphorus Magnesium AST ALT Alkaline Phosphatase Lactate Dehydrogenase Troponin T C-Reactive Protein NT-Pro-B Natriuret Pep Total Protein Albumin LDL Cholesterol Direct Vitamin B12 Urine WBC (Auto) Fluid Glucose Fluid Total Protein Vancomycin Trough Crossmatch 12/20/21 12/20/21 12/20/21 05:20 11:51 17:30 WBC RBC Hgb Hct MCV MCH MCHC RDW Plt Count Eos % (Auto) Eos # (Auto) Seg Neuts % (Manual) Lymphocytes % (Manual) Seg Neutrophils # Seg Neutrophils # Man Lymphocytes # (Manual) Monocytes # (Manual) PT INR D-Dimer ABG pH ABG pO2 ABG HCO3 ABG O2 Saturation ABG Base Excess ABG Hemoglobin Oxyhemoglobin Sodium Potassium Chloride Carbon Dioxide BUN Creatinine Glucose POC Glucose 126 H 119 H 127 H Lactic Acid Calcium Phosphorus Magnesium AST ALT Alkaline Phosphatase Lactate Dehydrogenase Troponin T C-Reactive Protein NT-Pro-B Natriuret Pep Total Protein Albumin LDL Cholesterol Direct Vitamin B12 Urine WBC (Auto) Fluid Glucose Fluid Total Protein Vancomycin Trough Crossmatch 12/21/21 12/21/21 12/21/21 00:45 04:21 04:21 WBC RBC 3.47 L Hgb 9.4 L Hct 29.2 L MCV MCH 27 L MCHC RDW 18.1 H Plt Count Eos % (Auto) Eos # (Auto) Seg Neuts % (Manual) Lymphocytes % (Manual) Seg Neutrophils # Seg Neutrophils # Man Lymphocytes # (Manual) Monocytes # (Manual) PT INR D-Dimer ABG pH ABG pO2 ABG HCO3 ABG O2 Saturation ABG Base Excess ABG Hemoglobin Oxyhemoglobin Sodium 134 L Potassium Chloride Carbon Dioxide BUN 35 H Creatinine 0.5 L Glucose 122 H POC Glucose 125 H Lactic Acid Calcium 8.2 L Phosphorus Magnesium AST ALT Alkaline Phosphatase Lactate Dehydrogenase Troponin T C-Reactive Protein NT-Pro-B Natriuret Pep Total Protein Albumin LDL Cholesterol Direct Vitamin B12 Urine WBC (Auto) Fluid Glucose Fluid Total Protein Vancomycin Trough Crossmatch 12/21/21 12/21/21 12/21/21 05:38 11:29 16:16 WBC RBC Hgb Hct MCV MCH MCHC RDW Plt Count Eos % (Auto) Eos # (Auto) Seg Neuts % (Manual) Lymphocytes % (Manual) Seg Neutrophils # Seg Neutrophils # Man Lymphocytes # (Manual) Monocytes # (Manual) PT INR D-Dimer ABG pH ABG pO2 ABG HCO3 ABG O2 Saturation ABG Base Excess ABG Hemoglobin Oxyhemoglobin Sodium Potassium Chloride Carbon Dioxide BUN Creatinine Glucose POC Glucose 127 H 121 H 113 H Lactic Acid Calcium Phosphorus Magnesium AST ALT Alkaline Phosphatase Lactate Dehydrogenase Troponin T C-Reactive Protein NT-Pro-B Natriuret Pep Total Protein Albumin LDL Cholesterol Direct Vitamin B12 Urine WBC (Auto) Fluid Glucose Fluid Total Protein Vancomycin Trough Crossmatch 12/22/21 12/22/21 12/23/21 04:58 04:58 06:40 WBC 11.5 H RBC 3.43 L Hgb 9.8 L Hct 28.7 L MCV MCH MCHC RDW 18.5 H 17.9 H Plt Count Eos % (Auto) Eos # (Auto) Seg Neuts % (Manual) Lymphocytes % (Manual) Seg Neutrophils # Seg Neutrophils # Man Lymphocytes # (Manual) Monocytes # (Manual) PT INR D-Dimer ABG pH ABG pO2 ABG HCO3 ABG O2 Saturation ABG Base Excess ABG Hemoglobin Oxyhemoglobin Sodium 130 L Potassium Chloride 97.8 L Carbon Dioxide BUN 31 H Creatinine 0.5 L Glucose 122 H POC Glucose Lactic Acid Calcium 7.9 L Phosphorus Magnesium AST ALT Alkaline Phosphatase Lactate Dehydrogenase Troponin T C-Reactive Protein NT-Pro-B Natriuret Pep Total Protein Albumin LDL Cholesterol Direct Vitamin B12 Urine WBC (Auto) Fluid Glucose Fluid Total Protein Vancomycin Trough Crossmatch 12/23/21 12/23/21 12/24/21 06:40 23:25 04:24 WBC 11.7 H RBC Hgb 9.8 L Hct MCV MCH 26 L MCHC RDW 18.1 H Plt Count Eos % (Auto) Eos # (Auto) Seg Neuts % (Manual) Lymphocytes % (Manual) Seg Neutrophils # Seg Neutrophils # Man Lymphocytes # (Manual) Monocytes # (Manual) PT INR D-Dimer ABG pH ABG pO2 ABG HCO3 ABG O2 Saturation ABG Base Excess ABG Hemoglobin Oxyhemoglobin Sodium 136 L Potassium Chloride Carbon Dioxide BUN 27 H Creatinine 0.4 L Glucose 107 H POC Glucose 110 H Lactic Acid Calcium 8.1 L Phosphorus Magnesium AST ALT Alkaline Phosphatase Lactate Dehydrogenase Troponin T C-Reactive Protein NT-Pro-B Natriuret Pep Total Protein Albumin LDL Cholesterol Direct Vitamin B12 Urine WBC (Auto) Fluid Glucose Fluid Total Protein Vancomycin Trough Crossmatch 12/24/21 12/24/2112/24/22 04:24 11:08 15:45 WBC RBC Hgb Hct MCV MCH MCHC RDW Plt Count Eos % (Auto) Eos # (Auto) Seg Neuts % (Manual) Lymphocytes % (Manual) Seg Neutrophils # Seg Neutrophils # Man Lymphocytes # (Manual) Monocytes # (Manual) PT INR D-Dimer ABG pH ABG pO2 ABG HCO3 ABG O2 Saturation ABG Base Excess ABG Hemoglobin Oxyhemoglobin Sodium 132 L Potassium Chloride Carbon Dioxide BUN 27 H Creatinine 0.3 L Glucose 108 H POC Glucose 116 H 107 H Lactic Acid Calcium Phosphorus Magnesium AST ALT Alkaline Phosphatase Lactate Dehydrogenase Troponin T C-Reactive Protein NT-Pro-B Natriuret Pep Total Protein Albumin LDL Cholesterol Direct Vitamin B12 Urine WBC (Auto) Fluid Glucose Fluid Total Protein Vancomycin Trough Crossmatch 12/24/21 12/25/21 12/25/21 23:43 05:29 11:48 WBC RBC Hgb Hct MCV MCH MCHC RDW Plt Count Eos % (Auto) Eos # (Auto) Seg Neuts % (Manual) Lymphocytes % (Manual) Seg Neutrophils # Seg Neutrophils # Man Lymphocytes # (Manual) Monocytes # (Manual) PT INR D-Dimer ABG pH ABG pO2 ABG HCO3 ABG O2 Saturation ABG Base Excess ABG Hemoglobin Oxyhemoglobin Sodium Potassium Chloride Carbon Dioxide BUN Creatinine Glucose POC Glucose 123 H 107 H 119 H Lactic Acid Calcium Phosphorus Magnesium AST ALT Alkaline Phosphatase Lactate Dehydrogenase Troponin T C-Reactive Protein NT-Pro-B Natriuret Pep Total Protein Albumin LDL Cholesterol Direct Vitamin B12 Urine WBC (Auto) Fluid Glucose Fluid Total Protein Vancomycin Trough Crossmatch 12/26/21 12/26/21 12/26/21 00:06 05:56 07:51 WBC 11.4 H RBC 3.40 L Hgb 9.3 L Hct 28.3 L MCV MCH 27 L MCHC RDW 18.2 H Plt Count Eos % (Auto) Eos # (Auto) Seg Neuts % (Manual) Lymphocytes % (Manual) Seg Neutrophils # Seg Neutrophils # Man Lymphocytes # (Manual) Monocytes # (Manual) PT INR D-Dimer ABG pH ABG pO2 ABG HCO3 ABG O2 Saturation ABG Base Excess ABG Hemoglobin Oxyhemoglobin Sodium Potassium Chloride Carbon Dioxide BUN Creatinine Glucose POC Glucose 133 H 107 H Lactic Acid Calcium Phosphorus Magnesium AST ALT Alkaline Phosphatase Lactate Dehydrogenase Troponin T C-Reactive Protein NT-Pro-B Natriuret Pep Total Protein Albumin LDL Cholesterol Direct Vitamin B12 Urine WBC (Auto) Fluid Glucose Fluid Total Protein Vancomycin Trough Crossmatch 12/26/21 12/26/21 12/26/21 07:51 11:43 17:06 WBC RBC Hgb Hct MCV MCH MCHC RDW Plt Count Eos % (Auto) Eos # (Auto) Seg Neuts % (Manual) Lymphocytes % (Manual) Seg Neutrophils # Seg Neutrophils # Man Lymphocytes # (Manual) Monocytes # (Manual) PT INR D-Dimer ABG pH ABG pO2 ABG HCO3 ABG O2 Saturation ABG Base Excess ABG Hemoglobin Oxyhemoglobin Sodium 136 L Potassium Chloride Carbon Dioxide BUN 25 H Creatinine 0.3 L Glucose 131 H POC Glucose 119 H 128 H Lactic Acid Calcium Phosphorus Magnesium AST ALT Alkaline Phosphatase Lactate Dehydrogenase Troponin T C-Reactive Protein NT-Pro-B Natriuret Pep Total Protein Albumin LDL Cholesterol Direct Vitamin B12 Urine WBC (Auto) Fluid Glucose Fluid Total Protein Vancomycin Trough Crossmatch 12/28/21 12/28/21 12/29/21 09:05 09:05 04:40 WBC RBC 3.19 L Hgb 8.9 L Hct 26.4 L MCV MCH 27 L MCHC RDW 18.4 H 17.9 H Plt Count Eos % (Auto) Eos # (Auto) Seg Neuts % (Manual) Lymphocytes % (Manual) Seg Neutrophils # Seg Neutrophils # Man Lymphocytes # (Manual) Monocytes # (Manual) PT INR D-Dimer ABG pH ABG pO2 ABG HCO3 ABG O2 Saturation ABG Base Excess ABG Hemoglobin Oxyhemoglobin Sodium 135 L Potassium Chloride 97.8 L Carbon Dioxide BUN 18 H Creatinine 0.3 L Glucose POC Glucose Lactic Acid Calcium Phosphorus Magnesium AST ALT Alkaline Phosphatase Lactate Dehydrogenase Troponin T C-Reactive Protein NT-Pro-B Natriuret Pep Total Protein Albumin LDL Cholesterol Direct Vitamin B12 Urine WBC (Auto) Fluid Glucose Fluid Total Protein Vancomycin Trough Crossmatch 12/29/21 12/29/21 12/30/21 04:40 12:47 04:05 WBC RBC 3.29 L Hgb 8.7 L Hct 27.6 L MCV MCH 27 L MCHC RDW 17.6 H Plt Count Eos % (Auto) Eos # (Auto) Seg Neuts % (Manual) Lymphocytes % (Manual) Seg Neutrophils # Seg Neutrophils # Man Lymphocytes # (Manual) Monocytes # (Manual) PT INR D-Dimer ABG pH ABG pO2 ABG HCO3 ABG O2 Saturation ABG Base Excess ABG Hemoglobin Oxyhemoglobin Sodium 136 L Potassium Chloride Carbon Dioxide BUN Creatinine 0.3 L Glucose POC Glucose 67 L Lactic Acid Calcium 8.3 L Phosphorus Magnesium AST ALT Alkaline Phosphatase Lactate Dehydrogenase Troponin T C-Reactive Protein NT-Pro-B Natriuret Pep Total Protein Albumin LDL Cholesterol Direct Vitamin B12 Urine WBC (Auto) Fluid Glucose Fluid Total Protein Vancomycin Trough Crossmatch 12/30/21 12/31/21 12/31/21 04:05 00:07 04:00 WBC RBC 3.05 L Hgb 8.5 L Hct 25.5 L MCV MCH MCHC RDW 18.2 H Plt Count Eos % (Auto) Eos # (Auto) Seg Neuts % (Manual) Lymphocytes % (Manual) Seg Neutrophils # Seg Neutrophils # Man Lymphocytes # (Manual) Monocytes # (Manual) PT INR D-Dimer ABG pH ABG pO2 ABG HCO3 ABG O2 Saturation ABG Base Excess ABG Hemoglobin Oxyhemoglobin Sodium 136 L Potassium 3.5 L Chloride Carbon Dioxide BUN Creatinine 0.4 L Glucose POC Glucose 139 H Lactic Acid Calcium Phosphorus Magnesium 1.50 L AST ALT Alkaline Phosphatase Lactate Dehydrogenase Troponin T C-Reactive Protein NT-Pro-B Natriuret Pep Total Protein Albumin LDL Cholesterol Direct Vitamin B12 Urine WBC (Auto) Fluid Glucose Fluid Total Protein Vancomycin Trough Crossmatch 12/31/21 12/31/21 12/31/21 04:00 04:52 11:23 WBC RBC Hgb Hct MCV MCH MCHC RDW Plt Count Eos % (Auto) Eos # (Auto) Seg Neuts % (Manual) Lymphocytes % (Manual) Seg Neutrophils # Seg Neutrophils # Man Lymphocytes # (Manual) Monocytes # (Manual) PT INR D-Dimer ABG pH ABG pO2 ABG HCO3 ABG O2 Saturation ABG Base Excess ABG Hemoglobin Oxyhemoglobin Sodium Potassium Chloride Carbon Dioxide BUN 19 H Creatinine 0.4 L Glucose 116 H POC Glucose 121 H 116 H Lactic Acid Calcium Phosphorus Magnesium AST ALT Alkaline Phosphatase Lactate Dehydrogenase Troponin T C-Reactive Protein NT-Pro-B Natriuret Pep Total Protein Albumin LDL Cholesterol Direct Vitamin B12 Urine WBC (Auto) Fluid Glucose Fluid Total Protein Vancomycin Trough Crossmatch 12/31/21 01/01/22 01/01/22 17:42 04:31 04:31 WBC RBC 2.83 L Hgb 7.7 L Hct 23.2 L MCV MCH 27 L MCHC RDW 18.3 H Plt Count Eos % (Auto) Eos # (Auto) Seg Neuts % (Manual) Lymphocytes % (Manual) Seg Neutrophils # Seg Neutrophils # Man Lymphocytes # (Manual) Monocytes # (Manual) PT INR D-Dimer ABG pH ABG pO2 ABG HCO3 ABG O2 Saturation ABG Base Excess ABG Hemoglobin Oxyhemoglobin Sodium 135 L Potassium Chloride 97.7 L Carbon Dioxide BUN 21 H Creatinine 0.5 L Glucose 127 H POC Glucose 107 H Lactic Acid Calcium 8.0 L Phosphorus Magnesium AST ALT Alkaline Phosphatase Lactate Dehydrogenase Troponin T C-Reactive Protein NT-Pro-B Natriuret Pep Total Protein Albumin LDL Cholesterol Direct Vitamin B12 Urine WBC (Auto) Fluid Glucose Fluid Total Protein Vancomycin Trough Crossmatch 01/01/22 01/01/22 01/01/22 05:24 11:25 18:11 WBC RBC Hgb Hct MCV MCH MCHC RDW Plt Count Eos % (Auto) Eos # (Auto) Seg Neuts % (Manual) Lymphocytes % (Manual) Seg Neutrophils # Seg Neutrophils # Man Lymphocytes # (Manual) Monocytes # (Manual) PT INR D-Dimer ABG pH ABG pO2 ABG HCO3 ABG O2 Saturation ABG Base Excess ABG Hemoglobin Oxyhemoglobin Sodium Potassium Chloride Carbon Dioxide BUN Creatinine Glucose POC Glucose 124 H 140 H 144 H Lactic Acid Calcium Phosphorus Magnesium AST ALT Alkaline Phosphatase Lactate Dehydrogenase Troponin T C-Reactive Protein NT-Pro-B Natriuret Pep Total Protein Albumin LDL Cholesterol Direct Vitamin B12 Urine WBC (Auto) Fluid Glucose Fluid Total Protein Vancomycin Trough Crossmatch 01/01/22 01/02/22 01/02/22 23:26 04:01 04:01 WBC RBC 2.57 L Hgb 7.1 L Hct 21.5 L MCV MCH MCHC RDW 18.1 H Plt Count Eos % (Auto) Eos # (Auto) Seg Neuts % (Manual) Lymphocytes % (Manual) Seg Neutrophils # Seg Neutrophils # Man Lymphocytes # (Manual) Monocytes # (Manual) PT INR D-Dimer ABG pH ABG pO2 ABG HCO3 ABG O2 Saturation ABG Base Excess ABG Hemoglobin Oxyhemoglobin Sodium 131 L Potassium 3.5 L Chloride 94.8 L Carbon Dioxide BUN 27 H Creatinine Glucose 121 H POC Glucose 121 H Lactic Acid Calcium Phosphorus Magnesium AST ALT Alkaline Phosphatase Lactate Dehydrogenase Troponin T C-Reactive Protein NT-Pro-B Natriuret Pep Total Protein Albumin LDL Cholesterol Direct Vitamin B12 Urine WBC (Auto) Fluid Glucose Fluid Total Protein Vancomycin Trough Crossmatch 01/02/22 01/02/22 01/02/22 05:30 11:10 16:08 WBC RBC Hgb Hct MCV MCH MCHC RDW Plt Count Eos % (Auto) Eos # (Auto) Seg Neuts % (Manual) Lymphocytes % (Manual) Seg Neutrophils # Seg Neutrophils # Man Lymphocytes # (Manual) Monocytes # (Manual) PT INR D-Dimer ABG pH ABG pO2 ABG HCO3 ABG O2 Saturation ABG Base Excess ABG Hemoglobin Oxyhemoglobin Sodium Potassium Chloride Carbon Dioxide BUN Creatinine Glucose POC Glucose 124 H 117 H 130 H Lactic Acid Calcium Phosphorus Magnesium AST ALT Alkaline Phosphatase Lactate Dehydrogenase Troponin T C-Reactive Protein NT-Pro-B Natriuret Pep Total Protein Albumin LDL Cholesterol Direct Vitamin B12 Urine WBC (Auto) Fluid Glucose Fluid Total Protein Vancomycin Trough Crossmatch 01/02/22 01/02/22 01/03/22 17:30 23:26 04:53 WBC RBC 2.82 L Hgb 7.7 L Hct 23.4 L MCV MCH 27 L MCHC RDW 18.0 H Plt Count Eos % (Auto) Eos # (Auto) Seg Neuts % (Manual) Lymphocytes % (Manual) Seg Neutrophils # Seg Neutrophils # Man Lymphocytes # (Manual) Monocytes # (Manual) PT INR D-Dimer ABG pH ABG pO2 ABG HCO3 ABG O2 Saturation ABG Base Excess ABG Hemoglobin Oxyhemoglobin Sodium Potassium Chloride Carbon Dioxide BUN Creatinine Glucose POC Glucose 114 H Lactic Acid Calcium Phosphorus Magnesium AST ALT Alkaline Phosphatase Lactate Dehydrogenase Troponin T C-Reactive Protein NT-Pro-B Natriuret Pep Total Protein Albumin LDL Cholesterol Direct Vitamin B12 Urine WBC (Auto) Fluid Glucose Fluid Total Protein Vancomycin Trough 22.8 H Crossmatch 01/03/22 01/03/22 01/03/22 04:53 06:23 17:35 WBC RBC Hgb Hct MCV MCH MCHC RDW Plt Count Eos % (Auto) Eos # (Auto) Seg Neuts % (Manual) Lymphocytes % (Manual) Seg Neutrophils # Seg Neutrophils # Man Lymphocytes # (Manual) Monocytes # (Manual) PT INR D-Dimer ABG pH ABG pO2 ABG HCO3 ABG O2 Saturation ABG Base Excess ABG Hemoglobin Oxyhemoglobin Sodium 133 L Potassium Chloride 96.2 L Carbon Dioxide BUN 30 H Creatinine Glucose 107 H POC Glucose 122 H 107 H Lactic Acid Calcium Phosphorus Magnesium AST ALT Alkaline Phosphatase Lactate Dehydrogenase Troponin T C-Reactive Protein NT-Pro-B Natriuret Pep Total Protein Albumin LDL Cholesterol Direct Vitamin B12 Urine WBC (Auto) Fluid Glucose Fluid Total Protein Vancomycin Trough Crossmatch 01/04/22 01/04/22 01/04/22 04:00 12:32 16:45 WBC RBC Hgb Hct MCV MCH MCHC RDW Plt Count Eos % (Auto) Eos # (Auto) Seg Neuts % (Manual) Lymphocytes % (Manual) Seg Neutrophils # Seg Neutrophils # Man Lymphocytes # (Manual) Monocytes # (Manual) PT INR D-Dimer ABG pH ABG pO2 ABG HCO3 ABG O2 Saturation ABG Base Excess ABG Hemoglobin Oxyhemoglobin Sodium 132 L Potassium Chloride 92.8 L Carbon Dioxide BUN 30 H Creatinine Glucose 115 H POC Glucose 111 H 111 H Lactic Acid Calcium Phosphorus Magnesium 1.60 L AST ALT Alkaline Phosphatase Lactate Dehydrogenase Troponin T C-Reactive Protein NT-Pro-B Natriuret Pep Total Protein Albumin LDL Cholesterol Direct Vitamin B12 Urine WBC (Auto) Fluid Glucose Fluid Total Protein Vancomycin Trough Crossmatch 01/05/22 01/05/22 01/05/22 04:30 04:30 17:04 WBC RBC 3.11 L Hgb 8.4 L Hct 25.5 L MCV MCH 27 L MCHC RDW 17.6 H Plt Count Eos % (Auto) Eos # (Auto) Seg Neuts % (Manual) Lymphocytes % (Manual) Seg Neutrophils # Seg Neutrophils # Man Lymphocytes # (Manual) Monocytes # (Manual) PT INR D-Dimer ABG pH ABG pO2 ABG HCO3 ABG O2 Saturation ABG Base Excess ABG Hemoglobin Oxyhemoglobin Sodium 135 L Potassium Chloride 93.6 L Carbon Dioxide BUN 29 H Creatinine Glucose POC Glucose 67 L Lactic Acid Calcium Phosphorus Magnesium AST ALT Alkaline Phosphatase Lactate Dehydrogenase Troponin T C-Reactive Protein NT-Pro-B Natriuret Pep Total Protein Albumin LDL Cholesterol Direct Vitamin B12 Urine WBC (Auto) Fluid Glucose Fluid Total Protein Vancomycin Trough Crossmatch 01/05/22 01/06/22 01/06/22 23:27 04:06 04:06 WBC RBC 2.89 L Hgb 7.7 L Hct 23.8 L MCV MCH 27 L MCHC RDW 18.0 H Plt Count Eos % (Auto) Eos # (Auto) Seg Neuts % (Manual) Lymphocytes % (Manual) Seg Neutrophils # Seg Neutrophils # Man Lymphocytes # (Manual) Monocytes # (Manual) PT 16.9 H INR 1.23 H D-Dimer ABG pH ABG pO2 ABG HCO3 ABG O2 Saturation ABG Base Excess ABG Hemoglobin Oxyhemoglobin Sodium Potassium Chloride Carbon Dioxide BUN Creatinine Glucose POC Glucose 110 H Lactic Acid Calcium Phosphorus Magnesium AST ALT Alkaline Phosphatase Lactate Dehydrogenase Troponin T C-Reactive Protein NT-Pro-B Natriuret Pep Total Protein Albumin LDL Cholesterol Direct Vitamin B12 Urine WBC (Auto) Fluid Glucose Fluid Total Protein Vancomycin Trough Crossmatch 01/06/22 01/06/22 01/06/22 04:06 13:40 23:41 WBC RBC Hgb Hct MCV MCH MCHC RDW Plt Count Eos % (Auto) Eos # (Auto) Seg Neuts % (Manual) Lymphocytes % (Manual) Seg Neutrophils # Seg Neutrophils # Man Lymphocytes # (Manual) Monocytes # (Manual) PT INR D-Dimer ABG pH ABG pO2 ABG HCO3 ABG O2 Saturation ABG Base Excess ABG Hemoglobin Oxyhemoglobin Sodium 132 L Potassium Chloride 92.3 L Carbon Dioxide BUN 26 H Creatinine Glucose 111 H POC Glucose 120 H Lactic Acid Calcium Phosphorus Magnesium AST ALT Alkaline Phosphatase Lactate Dehydrogenase Troponin T C-Reactive Protein NT-Pro-B Natriuret Pep Total Protein Albumin LDL Cholesterol Direct Vitamin B12 Urine WBC (Auto) Fluid Glucose 96 H Fluid Total Protein < 3.0 L Vancomycin Trough Crossmatch 01/07/22 01/07/22 01/07/22 05:20 11:30 17:00 WBC RBC Hgb Hct MCV MCH MCHC RDW Plt Count Eos % (Auto) Eos # (Auto) Seg Neuts % (Manual) Lymphocytes % (Manual) Seg Neutrophils # Seg Neutrophils # Man Lymphocytes # (Manual) Monocytes # (Manual) PT INR D-Dimer ABG pH ABG pO2 ABG HCO3 ABG O2 Saturation ABG Base Excess ABG Hemoglobin Oxyhemoglobin Sodium Potassium Chloride Carbon Dioxide BUN Creatinine Glucose POC Glucose 111 H 113 H 121 H Lactic Acid Calcium Phosphorus Magnesium AST ALT Alkaline Phosphatase Lactate Dehydrogenase Troponin T C-Reactive Protein NT-Pro-B Natriuret Pep Total Protein Albumin LDL Cholesterol Direct Vitamin B12 Urine WBC (Auto) Fluid Glucose Fluid Total Protein Vancomycin Trough Crossmatch 01/07/22 01/08/22 01/08/22 23:41 11:26 16:23 WBC RBC Hgb Hct MCV MCH MCHC RDW Plt Count Eos % (Auto) Eos # (Auto) Seg Neuts % (Manual) Lymphocytes % (Manual) Seg Neutrophils # Seg Neutrophils # Man Lymphocytes # (Manual) Monocytes # (Manual) PT INR D-Dimer ABG pH ABG pO2 ABG HCO3 ABG O2 Saturation ABG Base Excess ABG Hemoglobin Oxyhemoglobin Sodium Potassium Chloride Carbon Dioxide BUN Creatinine Glucose POC Glucose 110 H 129 H 118 H Lactic Acid Calcium Phosphorus Magnesium AST ALT Alkaline Phosphatase Lactate Dehydrogenase Troponin T C-Reactive Protein NT-Pro-B Natriuret Pep Total Protein Albumin LDL Cholesterol Direct Vitamin B12 Urine WBC (Auto) Fluid Glucose Fluid Total Protein Vancomycin Trough Crossmatch 01/09/22 01/10/22 01/10/22 18:13 00:27 04:00 WBC RBC Hgb Hct MCV MCH MCHC RDW Plt Count Eos % (Auto) Eos # (Auto) Seg Neuts % (Manual) Lymphocytes % (Manual) Seg Neutrophils # Seg Neutrophils # Man Lymphocytes # (Manual) Monocytes # (Manual) PT INR D-Dimer ABG pH ABG pO2 ABG HCO3 ABG O2 Saturation ABG Base Excess ABG Hemoglobin Oxyhemoglobin Sodium 133 L Potassium Chloride 92.6 L Carbon Dioxide 31 H BUN 29 H Creatinine 0.5 L Glucose 115 H POC Glucose 118 H 111 H Lactic Acid Calcium Phosphorus Magnesium AST ALT Alkaline Phosphatase Lactate Dehydrogenase Troponin T C-Reactive Protein NT-Pro-B Natriuret Pep Total Protein Albumin LDL Cholesterol Direct Vitamin B12 Urine WBC (Auto) Fluid Glucose Fluid Total Protein Vancomycin Trough Crossmatch 01/10/22 01/11/22 01/11/22 05:47 05:10 11:14 WBC RBC Hgb Hct MCV MCH MCHC RDW Plt Count Eos % (Auto) Eos # (Auto) Seg Neuts % (Manual) Lymphocytes % (Manual) Seg Neutrophils # Seg Neutrophils # Man Lymphocytes # (Manual) Monocytes # (Manual) PT INR D-Dimer ABG pH ABG pO2 ABG HCO3 ABG O2 Saturation ABG Base Excess ABG Hemoglobin Oxyhemoglobin Sodium Potassium Chloride Carbon Dioxide BUN Creatinine Glucose POC Glucose 106 H 118 H 136 H Lactic Acid Calcium Phosphorus Magnesium AST ALT Alkaline Phosphatase Lactate Dehydrogenase Troponin T C-Reactive Protein NT-Pro-B Natriuret Pep Total Protein Albumin LDL Cholesterol Direct Vitamin B12 Urine WBC (Auto) Fluid Glucose Fluid Total Protein Vancomycin Trough Crossmatch 01/11/22 01/11/22 01/12/22 17:14 23:52 05:39 WBC RBC Hgb Hct MCV MCH MCHC RDW Plt Count Eos % (Auto) Eos # (Auto) Seg Neuts % (Manual) Lymphocytes % (Manual) Seg Neutrophils # Seg Neutrophils # Man Lymphocytes # (Manual) Monocytes # (Manual) PT INR D-Dimer ABG pH ABG pO2 ABG HCO3 ABG O2 Saturation ABG Base Excess ABG Hemoglobin Oxyhemoglobin Sodium Potassium Chloride Carbon Dioxide BUN Creatinine Glucose POC Glucose 117 H 110 H 110 H Lactic Acid Calcium Phosphorus Magnesium AST ALT Alkaline Phosphatase Lactate Dehydrogenase Troponin T C-Reactive Protein NT-Pro-B Natriuret Pep Total Protein Albumin LDL Cholesterol Direct Vitamin B12 Urine WBC (Auto) Fluid Glucose Fluid Total Protein Vancomycin Trough Crossmatch 01/13/22 01/13/22 01/14/22 11:15 17:21 05:33 WBC RBC Hgb Hct MCV MCH MCHC RDW Plt Count Eos % (Auto) Eos # (Auto) Seg Neuts % (Manual) Lymphocytes % (Manual) Seg Neutrophils # Seg Neutrophils # Man Lymphocytes # (Manual) Monocytes # (Manual) PT INR D-Dimer ABG pH ABG pO2 ABG HCO3 ABG O2 Saturation ABG Base Excess ABG Hemoglobin Oxyhemoglobin Sodium Potassium Chloride Carbon Dioxide BUN Creatinine Glucose POC Glucose 113 H 121 H 136 H Lactic Acid Calcium Phosphorus Magnesium AST ALT Alkaline Phosphatase Lactate Dehydrogenase Troponin T C-Reactive Protein NT-Pro-B Natriuret Pep Total Protein Albumin LDL Cholesterol Direct Vitamin B12 Urine WBC (Auto) Fluid Glucose Fluid Total Protein Vancomycin Trough Crossmatch 01/14/22 01/15/22 01/15/22 11:28 00:13 05:24 WBC RBC Hgb Hct MCV MCH MCHC RDW Plt Count Eos % (Auto) Eos # (Auto) Seg Neuts % (Manual) Lymphocytes % (Manual) Seg Neutrophils # Seg Neutrophils # Man Lymphocytes # (Manual) Monocytes # (Manual) PT INR D-Dimer ABG pH ABG pO2 ABG HCO3 ABG O2 Saturation ABG Base Excess ABG Hemoglobin Oxyhemoglobin Sodium Potassium Chloride Carbon Dioxide BUN Creatinine Glucose POC Glucose 117 H 109 H 117 H Lactic Acid Calcium Phosphorus Magnesium AST ALT Alkaline Phosphatase Lactate Dehydrogenase Troponin T C-Reactive Protein NT-Pro-B Natriuret Pep Total Protein Albumin LDL Cholesterol Direct Vitamin B12 Urine WBC (Auto) Fluid Glucose Fluid Total Protein Vancomycin Trough Crossmatch 01/15/22 01/15/22 01/15/22 11:38 14:36 17:05 WBC RBC 3.11 L Hgb 8.4 L Hct 25.7 L MCV MCH 27 L MCHC RDW 17.2 H Plt Count Eos % (Auto) Eos # (Auto) Seg Neuts % (Manual) 82.0 H Lymphocytes % (Manual) 11.0 L Seg Neutrophils # Seg Neutrophils # Man 8.8 H Lymphocytes # (Manual) Monocytes # (Manual) PT INR D-Dimer ABG pH ABG pO2 ABG HCO3 ABG O2 Saturation ABG Base Excess ABG Hemoglobin Oxyhemoglobin Sodium Potassium Chloride Carbon Dioxide BUN Creatinine Glucose POC Glucose 107 H 108 H Lactic Acid Calcium Phosphorus Magnesium AST ALT Alkaline Phosphatase Lactate Dehydrogenase Troponin T C-Reactive Protein NT-Pro-B Natriuret Pep Total Protein Albumin LDL Cholesterol Direct Vitamin B12 Urine WBC (Auto) Fluid Glucose Fluid Total Protein Vancomycin Trough Crossmatch 01/15/22 01/15/22 01/15/22 21:07 Unknown Unknown WBC RBC 2.97 L Hgb 8.0 L Hct 24.3 L MCV MCH 27 L MCHC RDW 17.2 H Plt Count Eos % (Auto) Eos # (Auto) Seg Neuts % (Manual) Lymphocytes % (Manual) Seg Neutrophils # Seg Neutrophils # Man Lymphocytes # (Manual) Monocytes # (Manual) PT INR D-Dimer ABG pH ABG pO2 ABG HCO3 ABG O2 Saturation ABG Base Excess ABG Hemoglobin Oxyhemoglobin Sodium 131 L Potassium Chloride 93.1 L Carbon Dioxide BUN 27 H Creatinine Glucose 110 H POC Glucose Lactic Acid Calcium 8.3 L Phosphorus Magnesium AST ALT Alkaline Phosphatase Lactate Dehydrogenase Troponin T 0.088 H C-Reactive Protein NT-Pro-B Natriuret Pep Total Protein Albumin LDL Cholesterol Direct 44 L Vitamin B12 Urine WBC (Auto) Fluid Glucose Fluid Total Protein Vancomycin Trough Crossmatch 01/15/22 01/16/22 01/16/22 Unknown 05:21 12:59 WBC RBC Hgb Hct MCV MCH MCHC RDW Plt Count Eos % (Auto) Eos # (Auto) Seg Neuts % (Manual) Lymphocytes % (Manual) Seg Neutrophils # Seg Neutrophils # Man Lymphocytes # (Manual) Monocytes # (Manual) PT INR D-Dimer ABG pH ABG pO2 ABG HCO3 ABG O2 Saturation ABG Base Excess ABG Hemoglobin Oxyhemoglobin Sodium 134 L 134 L Potassium 3.4 L Chloride 93.9 L 95.4 L Carbon Dioxide BUN 26 H 24 H Creatinine Glucose 168 H POC Glucose 159 H Lactic Acid Calcium 8.1 L Phosphorus Magnesium AST ALT Alkaline Phosphatase Lactate Dehydrogenase Troponin T 0.078 H C-Reactive Protein NT-Pro-B Natriuret Pep Total Protein Albumin LDL Cholesterol Direct Vitamin B12 Urine WBC (Auto) Fluid Glucose Fluid Total Protein Vancomycin Trough Crossmatch 01/16/22 01/17/22 01/17/22 23:22 05:20 14:24 WBC RBC Hgb Hct MCV MCH MCHC RDW Plt Count Eos % (Auto) Eos # (Auto) Seg Neuts % (Manual) Lymphocytes % (Manual) Seg Neutrophils # Seg Neutrophils # Man Lymphocytes # (Manual) Monocytes # (Manual) PT INR D-Dimer ABG pH ABG pO2 55.0 L ABG HCO3 29.5 H ABG O2 Saturation 87.8 L ABG Base Excess 4.5 H ABG Hemoglobin 9.3 L Oxyhemoglobin 86.1 L Sodium Potassium Chloride Carbon Dioxide BUN Creatinine Glucose POC Glucose 113 H 111 H Lactic Acid Calcium Phosphorus Magnesium AST ALT Alkaline Phosphatase Lactate Dehydrogenase Troponin T C-Reactive Protein NT-Pro-B Natriuret Pep Total Protein Albumin LDL Cholesterol Direct Vitamin B12 Urine WBC (Auto) Fluid Glucose Fluid Total Protein Vancomycin Trough Crossmatch 01/17/22 01/18/22 01/18/22 17:14 05:39 11:53 WBC RBC Hgb Hct MCV MCH MCHC RDW Plt Count Eos % (Auto) Eos # (Auto) Seg Neuts % (Manual) Lymphocytes % (Manual) Seg Neutrophils # Seg Neutrophils # Man Lymphocytes # (Manual) Monocytes # (Manual) PT INR D-Dimer ABG pH ABG pO2 ABG HCO3 ABG O2 Saturation ABG Base Excess ABG Hemoglobin Oxyhemoglobin Sodium Potassium Chloride Carbon Dioxide BUN Creatinine Glucose POC Glucose 126 H 108 H 113 H Lactic Acid Calcium Phosphorus Magnesium AST ALT Alkaline Phosphatase Lactate Dehydrogenase Troponin T C-Reactive Protein NT-Pro-B Natriuret Pep Total Protein Albumin LDL Cholesterol Direct Vitamin B12 Urine WBC (Auto) Fluid Glucose Fluid Total Protein Vancomycin Trough Crossmatch 01/18/22 01/19/22 01/19/22 12:50 00:04 04:50 WBC RBC 3.14 L Hgb 8.4 L Hct 26.0 L MCV MCH 27 L MCHC RDW 18.2 H Plt Count Eos % (Auto) Eos # (Auto) Seg Neuts % (Manual) Lymphocytes % (Manual) Seg Neutrophils # Seg Neutrophils # Man Lymphocytes # (Manual) Monocytes # (Manual) PT INR D-Dimer ABG pH ABG pO2 112.3 H ABG HCO3 30.9 H ABG O2 Saturation ABG Base Excess 5.8 H ABG Hemoglobin 8.8 L Oxyhemoglobin Sodium Potassium Chloride Carbon Dioxide BUN Creatinine Glucose POC Glucose 115 H Lactic Acid Calcium Phosphorus Magnesium AST ALT Alkaline Phosphatase Lactate Dehydrogenase Troponin T C-Reactive Protein NT-Pro-B Natriuret Pep Total Protein Albumin LDL Cholesterol Direct Vitamin B12 Urine WBC (Auto) Fluid Glucose Fluid Total Protein Vancomycin Trough Crossmatch 01/19/22 01/19/22 01/19/22 04:50 11:51 20:45 WBC RBC Hgb Hct MCV MCH MCHC RDW Plt Count Eos % (Auto) Eos # (Auto) Seg Neuts % (Manual) Lymphocytes % (Manual) Seg Neutrophils # Seg Neutrophils # Man Lymphocytes # (Manual) Monocytes # (Manual) PT INR D-Dimer ABG pH ABG pO2 95.2 H ABG HCO3 29.8 H ABG O2 Saturation ABG Base Excess 4.3 H ABG Hemoglobin 8.0 L Oxyhemoglobin Sodium 134 L Potassium Chloride 95.4 L Carbon Dioxide BUN 28 H Creatinine Glucose POC Glucose 111 H Lactic Acid Calcium Phosphorus Magnesium AST ALT Alkaline Phosphatase Lactate Dehydrogenase Troponin T C-Reactive Protein NT-Pro-B Natriuret Pep Total Protein Albumin LDL Cholesterol Direct Vitamin B12 Urine WBC (Auto) Fluid Glucose Fluid Total Protein Vancomycin Trough Crossmatch 01/20/22 01/21/22 01/22/22 11:43 23:32 11:12 WBC RBC Hgb Hct MCV MCH MCHC RDW Plt Count Eos % (Auto) Eos # (Auto) Seg Neuts % (Manual) Lymphocytes % (Manual) Seg Neutrophils # Seg Neutrophils # Man Lymphocytes # (Manual) Monocytes # (Manual) PT INR D-Dimer ABG pH ABG pO2 ABG HCO3 ABG O2 Saturation ABG Base Excess ABG Hemoglobin Oxyhemoglobin Sodium Potassium Chloride Carbon Dioxide BUN Creatinine Glucose POC Glucose 118 H 113 H 110 H Lactic Acid Calcium Phosphorus Magnesium AST ALT Alkaline Phosphatase Lactate Dehydrogenase Troponin T C-Reactive Protein NT-Pro-B Natriuret Pep Total Protein Albumin LDL Cholesterol Direct Vitamin B12 Urine WBC (Auto) Fluid Glucose Fluid Total Protein Vancomycin Trough Crossmatch 01/22/22 01/23/22 01/23/22 17:54 09:36 11:49 WBC RBC Hgb Hct MCV MCH MCHC RDW Plt Count Eos % (Auto) Eos # (Auto) Seg Neuts % (Manual) Lymphocytes % (Manual) Seg Neutrophils # Seg Neutrophils # Man Lymphocytes # (Manual) Monocytes # (Manual) PT INR D-Dimer ABG pH ABG pO2 ABG HCO3 ABG O2 Saturation ABG Base Excess ABG Hemoglobin Oxyhemoglobin Sodium Potassium Chloride Carbon Dioxide BUN Creatinine Glucose POC Glucose 115 H 194 H Lactic Acid Calcium Phosphorus Magnesium AST ALT Alkaline Phosphatase Lactate Dehydrogenase Troponin T C-Reactive Protein NT-Pro-B Natriuret Pep Total Protein Albumin LDL Cholesterol Direct Vitamin B12 Urine WBC (Auto) 16.0 H Fluid Glucose Fluid Total Protein Vancomycin Trough Crossmatch 01/23/22 01/24/22 01/24/22 11:50 05:37 11:56 WBC RBC Hgb Hct MCV MCH MCHC RDW Plt Count Eos % (Auto) Eos # (Auto) Seg Neuts % (Manual) Lymphocytes % (Manual) Seg Neutrophils # Seg Neutrophils # Man Lymphocytes # (Manual) Monocytes # (Manual) PT INR D-Dimer ABG pH 7.310 L ABG pO2 43.9 L ABG HCO3 28.0 H ABG O2 Saturation 70.8 L ABG Base Excess ABG Hemoglobin 9.3 L Oxyhemoglobin 69.2 L Sodium Potassium Chloride Carbon Dioxide BUN Creatinine Glucose POC Glucose 118 H 119 H Lactic Acid Calcium Phosphorus Magnesium AST ALT Alkaline Phosphatase Lactate Dehydrogenase Troponin T C-Reactive Protein NT-Pro-B Natriuret Pep Total Protein Albumin LDL Cholesterol Direct Vitamin B12 Urine WBC (Auto) Fluid Glucose Fluid Total Protein Vancomycin Trough Crossmatch 01/25/22 01/25/22 01/26/22 12:20 13:17 05:59 WBC RBC Hgb Hct MCV MCH MCHC RDW Plt Count Eos % (Auto) Eos # (Auto) Seg Neuts % (Manual) Lymphocytes % (Manual) Seg Neutrophils # Seg Neutrophils # Man Lymphocytes # (Manual) Monocytes # (Manual) PT INR D-Dimer ABG pH 7.488 H ABG pO2 58.9 L ABG HCO3 28.3 H ABG O2 Saturation 94.9 L ABG Base Excess 4.7 H ABG Hemoglobin 8.7 L Oxyhemoglobin 92.7 L Sodium Potassium Chloride Carbon Dioxide BUN Creatinine Glucose POC Glucose 126 H 130 H Lactic Acid Calcium Phosphorus Magnesium AST ALT Alkaline Phosphatase Lactate Dehydrogenase Troponin T C-Reactive Protein NT-Pro-B Natriuret Pep Total Protein Albumin LDL Cholesterol Direct Vitamin B12 Urine WBC (Auto) Fluid Glucose Fluid Total Protein Vancomycin Trough Crossmatch 01/26/22 01/26/22 01/26/22 10:16 10:16 11:49 WBC 12.7 H RBC Hgb 9.9 L Hct MCV MCH 27 L MCHC RDW 18.3 H Plt Count Eos % (Auto) 4.5 H Eos # (Auto) 0.6 H Seg Neuts % (Manual) Lymphocytes % (Manual) Seg Neutrophils # 8.2 H Seg Neutrophils # Man Lymphocytes # (Manual) Monocytes # (Manual) PT INR D-Dimer ABG pH ABG pO2 ABG HCO3 ABG O2 Saturation ABG Base Excess ABG Hemoglobin Oxyhemoglobin Sodium Potassium Chloride 96.6 L Carbon Dioxide BUN 29 H Creatinine Glucose 140 H POC Glucose 161 H Lactic Acid Calcium Phosphorus Magnesium AST ALT Alkaline Phosphatase Lactate Dehydrogenase Troponin T C-Reactive Protein NT-Pro-B Natriuret Pep Total Protein Albumin LDL Cholesterol Direct Vitamin B12 Urine WBC (Auto) Fluid Glucose Fluid Total Protein Vancomycin Trough Crossmatch 01/27/22 01/27/22 01/27/22 00:22 12:48 23:08 WBC RBC Hgb Hct MCV MCH MCHC RDW Plt Count Eos % (Auto) Eos # (Auto) Seg Neuts % (Manual) Lymphocytes % (Manual) Seg Neutrophils # Seg Neutrophils # Man Lymphocytes # (Manual) Monocytes # (Manual) PT INR D-Dimer ABG pH ABG pO2 ABG HCO3 ABG O2 Saturation ABG Base Excess ABG Hemoglobin Oxyhemoglobin Sodium Potassium Chloride Carbon Dioxide BUN Creatinine Glucose POC Glucose 107 H 131 H 109 H Lactic Acid Calcium Phosphorus Magnesium AST ALT Alkaline Phosphatase Lactate Dehydrogenase Troponin T C-Reactive Protein NT-Pro-B Natriuret Pep Total Protein Albumin LDL Cholesterol Direct Vitamin B12 Urine WBC (Auto) Fluid Glucose Fluid Total Protein Vancomycin Trough Crossmatch Allied health notes reviewed: nursing
[2022-01-28] MEDS: MELATONIN 5 MG TAB PO SCH (23:00)
[2022-01-28] MEDS: traZODone 50 MG TAB PO SCH (23:00)
[2022-01-28] MEDS: PRAVASTATIN 20 MG TAB FEEDTUBE SCH (23:01)
[2022-01-29 05:51] LABS: Blood Urea Nitrogen 36 mg/dL (7-17); Calcium 8.8 mg/dL (8.4-10.2); Hemolysis Index 1
[2022-01-29 05:57] LABS: BUN/Creatinine Ratio 60
[2022-01-29] MEDS: SUCRALFATE 1 GM/10 ML ORAL LIQD FEEDTUBE SCH ×5 (06:50→23:56)
[2022-01-29] MEDS: LEVOTHYROXINE 125 MCG TAB FEEDTUBE SCH (06:51)
--- NOTE | 2022-01-29 08:47 | Progress Note ---
Assessment and Plan Severe Sepsis POA vs septic shock- 11/03/2021 blood culture: 2 sets positive for GPC -Repeat cultures positive for MRSA Acute respiratory failure with hypoxia, s/p trach on MVS Acute microcytic anemia Bilateral pneumonia Left pleural effusion Cardiomyopathy EF 30-35% Moderate pulmonary HTN RVSP 49 Acute DVT s/p IVC Anemia Mild hyponatremia Continue ATP to Vapotherm Right chest tube to pleuravac- responding to diuresis. Plan to monitor renal function and chest tube output. Will plan on removing the chest tube once the drainage is minimal Continue to monitor hemoglobin and transfuse as clinically indicated to keep HgB>7g/dL s/p Antibiotics for MRSA bacteremia. Bactrim for chronic suppression per ID Maintain sleep-wake cycle PT/OT, increase activity Discharge planning - continue to titrate supplemental oxygen to keep SPO2 88-90% - VAP bundle addressed, aspiration precautions, HOB >40 - continue bronchodilators with pulmonary hygiene per RT - continue avoid nephrotoxins, renally dose all medications - Accuchecks with glycemic control per SSI (While critically ill target blood glucose of 140-180 mg/dL; avoid hypoglycemia) - continue to avoid benzodiazepines, reduce the possibility of delirium -trend temperature curve, trend WCC, - Maintenance of sleep-wake cycle, avoid delirium -Stress ulcer prophylaxis (Lansoprazole) -VTE prophylaxis- s/p IVC filter. No anticoagulation 11/18 EGD- Large cratered ulcer in the posterior duodenal bulb about 2 cm in diameter.Visible vessel present. Mild active oozing from the ulcer bed. A total of 3 injections were performed around the ulcer for a total of 2.5 cc of dilute epinephrine and hemostasis was obtained. -mobility, off loading and frequent turning to prevent pressure ulcer -continue with enteric nutritional support via PEG,at goal rate - Continue to monitor hemodynamics closely - continue other care per attending / other consultants CONDITION: FAIR PROGNOSIS: GUARDED CODE STATUS: FULL CODE Subjective Date of service: 01/29/22 Principal diagnosis: Septic shock; AHRF; Anemia; Pneumonia; pleural effusion; HFrEF; Pulm HTN Interval history: Follow up fro acute hypoxemic resp failure s/p tracheostomy to MVS ; Septic and cardiogenic shock; severe anemia; Patient seen and examined. Vitals, labs, medications, chart and imaging reviewed. Discussed with respiratory and nursing care staff. ATP to Vapotherm 25L 35% Chest tube output 600ml yesterday in response to Bumetanide Objective Vital Signs - 12hr 01/28/22 01/28/22 01/29/22 21:00 21:19 00:00 Temperature 97.5 F L Pulse Rate 61 62 65 Pulse Rate [ 65 From Monitor] Respiratory 18 19 17 Rate Blood Pressure 146/65 146/65 O2 Sat by Pulse 97 98 100 Oximetry O2 Sat by Pulse Oximetry [ Assessment] 01/29/22 01/29/22 01/29/22 01:19 01:20 02:00 Temperature Pulse Rate 61 62 64 Pulse Rate [ From Monitor] Respiratory 25 H 19 Rate Blood Pressure 146/65 138/63 129/71 O2 Sat by Pulse 100 100 93 Oximetry O2 Sat by Pulse Oximetry [ Assessment] 01/29/22 01/29/22 01/29/22 03:00 04:00 04:01 Temperature 97.7 F Pulse Rate 66 69 76 Pulse Rate [ 65 From Monitor] Respiratory 20 17 21 Rate Blood Pressure 136/80 152/77 O2 Sat by Pulse 99 100 99 Oximetry O2 Sat by Pulse Oximetry [ Assessment] 01/29/22 01/29/22 01/29/22 04:38 04:46 05:00 Temperature Pulse Rate 73 70 Pulse Rate [ From Monitor] Respiratory 18 Rate Blood Pressure 152/77 144/67 O2 Sat by Pulse 98 99 Oximetry O2 Sat by Pulse 98 Oximetry [ Assessment] 01/29/22 01/29/22 01/29/22 06:00 07:01 08:00 Temperature 97.7 F Pulse Rate 71 75 Pulse Rate [ From Monitor] Respiratory 21 28 H Rate Blood Pressure 143/72 146/72 O2 Sat by Pulse 100 98 Oximetry O2 Sat by Pulse Oximetry [ Assessment] 01/29/22 01/29/22 08:36 08:40 Temperature Pulse Rate Pulse Rate [ From Monitor] Respiratory Rate Blood Pressure O2 Sat by Pulse 94 Oximetry O2 Sat by Pulse 92 Oximetry [ Assessment] Constitutional: no acute distress, alert, other (trach to full support) Eyes: non-icteric ENT: oropharynx moist, other (+ Midline tracheostomy with minimal secretions) Neck: supple, no lymphadenopathy, no JVD Effort: normal, mildly labored Ascultation: Bilateral: diminished breath sounds, rhonchi, other (Right chest tube) Percussion: Right: not dull, Left: dull (bases) Cardiovascular: regular rate and rhythm, other (S1,S2) Gastrointestinal: normoactive bowel sounds, soft, non-tender, non-distended (protuberant) Integumentary: normal Extremities: no cyanosis, pink and warm, pulses normal, edema (upper etremities), anasarca Neurologic: non-focal exam (grossly), pupils equal and round, CN II-XII normal Psychiatric: affect normal CBC and BMP: 01/26/22 10:16 01/29/22 04:40 ABG, PT/INR, D-dimer: ABG ABG pH 7.488 pH Units (7.350-7.450) H 01/25/22 12:20 ABG pCO2 38.2 mm Hg 01/25/22 12:20 ABG pO2 58.9 mm Hg (80.0-90.0) L 01/25/22 12:20 ABG O2 Saturation 94.9 % (95.0-99.0) L 01/25/22 12:20 PT/INR, D-dimer PT 16.9 Sec. (12.2-14.9) H 01/06/22 04:06 INR 1.23 (0.87-1.13) H 01/06/22 04:06 D-Dimer 2655.00 ng/mlDDU (0-234) H 11/11/21 04:28 Abnormal lab findings: Abnormal Labs 11/03/21 11/03/21 11/03/21 22:32 22:32 22:32 WBC 29.3 H RBC 2.93 L Hgb 6.1 L Hct 21.9 L MCV 75 L MCH 21 L MCHC 28 L RDW 19.7 H Plt Count Eos % (Auto) Eos # (Auto) Seg Neuts % (Manual) 97.0 H Lymphocytes % (Manual) 3.0 L Seg Neutrophils # Seg Neutrophils # Man 28.4 H Lymphocytes # (Manual) 0.9 L Monocytes # (Manual) PT 18.6 H INR 1.40 H D-Dimer ABG pH ABG pO2 ABG HCO3 ABG O2 Saturation ABG Base Excess ABG Hemoglobin Oxyhemoglobin Sodium Potassium Chloride Carbon Dioxide 20 L BUN 33 H Creatinine Glucose 119 H POC Glucose Lactic Acid Calcium 8.3 L Phosphorus Magnesium AST ALT Alkaline Phosphatase Lactate Dehydrogenase Troponin T 0.035 H C-Reactive Protein NT-Pro-B Natriuret Pep Total Protein Albumin LDL Cholesterol Direct 34 L Vitamin B12 Urine WBC (Auto) Fluid Glucose Fluid Total Protein Vancomycin Trough Crossmatch 11/03/21 11/03/21 11/03/21 22:32 22:32 23:57 WBC RBC Hgb Hct MCV MCH MCHC RDW Plt Count Eos % (Auto) Eos # (Auto) Seg Neuts % (Manual) Lymphocytes % (Manual) Seg Neutrophils # Seg Neutrophils # Man Lymphocytes # (Manual) Monocytes # (Manual) PT INR D-Dimer ABG pH ABG pO2 ABG HCO3 ABG O2 Saturation ABG Base Excess ABG Hemoglobin Oxyhemoglobin Sodium Potassium Chloride Carbon Dioxide BUN Creatinine Glucose POC Glucose Lactic Acid 3.70 H* Calcium Phosphorus Magnesium AST ALT Alkaline Phosphatase 139 H Lactate Dehydrogenase Troponin T C-Reactive Protein NT-Pro-B Natriuret Pep 7895 H Total Protein Albumin 3.5 L LDL Cholesterol Direct Vitamin B12 Urine WBC (Auto) Fluid Glucose Fluid Total Protein Vancomycin Trough Crossmatch See Detail 11/04/21 11/04/21 11/05/21 00:59 13:58 00:51 WBC 27.9 H RBC 3.28 L Hgb 7.3 L Hct 25.5 L MCV 78 L MCH 22 L MCHC 29 L RDW 19.1 H Plt Count Eos % (Auto) Eos # (Auto) Seg Neuts % (Manual) 96.0 H Lymphocytes % (Manual) 2.0 L Seg Neutrophils # Seg Neutrophils # Man 26.8 H Lymphocytes # (Manual) 0.6 L Monocytes # (Manual) PT INR D-Dimer ABG pH ABG pO2 ABG HCO3 ABG O2 Saturation ABG Base Excess ABG Hemoglobin Oxyhemoglobin Sodium Potassium Chloride Carbon Dioxide BUN Creatinine Glucose POC Glucose Lactic Acid Calcium Phosphorus Magnesium AST ALT Alkaline Phosphatase Lactate Dehydrogenase Troponin T 0.051 H D 0.032 H D C-Reactive Protein NT-Pro-B Natriuret Pep Total Protein Albumin LDL Cholesterol Direct Vitamin B12 Urine WBC (Auto) Fluid Glucose Fluid Total Protein Vancomycin Trough Crossmatch 11/05/21 11/05/21 11/05/21 06:11 06:11 06:11 WBC 31.8 H RBC 3.57 L Hgb 8.0 L Hct 27.7 L MCV 78 L MCH 22 L MCHC 29 L RDW 19.2 H Plt Count Eos % (Auto) Eos # (Auto) Seg Neuts % (Manual) 91.0 H Lymphocytes % (Manual) 4.5 L Seg Neutrophils # Seg Neutrophils # Man 28.9 H Lymphocytes # (Manual) Monocytes # (Manual) 1.1 H PT INR D-Dimer 1494.53 H ABG pH ABG pO2 ABG HCO3 ABG O2 Saturation ABG Base Excess ABG Hemoglobin Oxyhemoglobin Sodium Potassium Chloride Carbon Dioxide 19 L BUN 42 H Creatinine Glucose 115 H POC Glucose Lactic Acid Calcium Phosphorus Magnesium AST 43 H ALT Alkaline Phosphatase Lactate Dehydrogenase 187 H Troponin T C-Reactive Protein 22.20 H NT-Pro-B Natriuret Pep Total Protein 6.0 L Albumin 3.2 L LDL Cholesterol Direct Vitamin B12 Urine WBC (Auto) Fluid Glucose Fluid Total Protein Vancomycin Trough Crossmatch 11/05/21 11/05/21 11/06/21 06:11 12:15 00:30 WBC RBC Hgb Hct MCV MCH MCHC RDW Plt Count Eos % (Auto) Eos # (Auto) Seg Neuts % (Manual) Lymphocytes % (Manual) Seg Neutrophils # Seg Neutrophils # Man Lymphocytes # (Manual) Monocytes # (Manual) PT INR D-Dimer ABG pH ABG pO2 ABG HCO3 ABG O2 Saturation ABG Base Excess ABG Hemoglobin Oxyhemoglobin Sodium Potassium Chloride Carbon Dioxide BUN Creatinine Glucose POC Glucose 113 H 69 L Lactic Acid Calcium Phosphorus Magnesium AST ALT Alkaline Phosphatase Lactate Dehydrogenase Troponin T 0.033 H C-Reactive Protein NT-Pro-B Natriuret Pep Total Protein Albumin LDL Cholesterol Direct Vitamin B12 Urine WBC (Auto) Fluid Glucose Fluid Total Protein Vancomycin Trough Crossmatch 11/06/21 11/06/21 11/06/21 05:50 15:50 15:50 WBC 25.5 H RBC 3.62 L Hgb 8.0 L Hct 27.5 L MCV 76 L MCH 22 L MCHC 29 L RDW 19.6 H Plt Count Eos % (Auto) Eos # (Auto) Seg Neuts % (Manual) 92.0 H Lymphocytes % (Manual) 5.0 L Seg Neutrophils # Seg Neutrophils # Man 23.5 H Lymphocytes # (Manual) Monocytes # (Manual) PT INR D-Dimer ABG pH 7.305 L ABG pO2 ABG HCO3 15.8 L ABG O2 Saturation ABG Base Excess -9.6 L ABG Hemoglobin 8.6 L Oxyhemoglobin 94.6 L Sodium Potassium Chloride 113.9 H Carbon Dioxide 17 L BUN 56 H Creatinine Glucose 114 H POC Glucose Lactic Acid Calcium 7.9 L Phosphorus Magnesium AST 1410 H ALT 934 H Alkaline Phosphatase 142 H Lactate Dehydrogenase Troponin T C-Reactive Protein NT-Pro-B Natriuret Pep Total Protein 5.0 L Albumin 2.6 L LDL Cholesterol Direct Vitamin B12 Urine WBC (Auto) Fluid Glucose Fluid Total Protein Vancomycin Trough Crossmatch 11/07/21 11/07/21 11/07/21 03:30 04:50 08:07 WBC RBC Hgb Hct MCV MCH MCHC RDW Plt Count Eos % (Auto) Eos # (Auto) Seg Neuts % (Manual) Lymphocytes % (Manual) Seg Neutrophils # Seg Neutrophils # Man Lymphocytes # (Manual) Monocytes # (Manual) PT INR D-Dimer ABG pH ABG pO2 296.9 H ABG HCO3 18.1 L ABG O2 Saturation 99.5 H ABG Base Excess -5.9 L ABG Hemoglobin 7.6 L Oxyhemoglobin Sodium Potassium Chloride Carbon Dioxide BUN Creatinine Glucose POC Glucose 106 H 108 H Lactic Acid Calcium Phosphorus Magnesium AST ALT Alkaline Phosphatase Lactate Dehydrogenase Troponin T C-Reactive Protein NT-Pro-B Natriuret Pep Total Protein Albumin LDL Cholesterol Direct Vitamin B12 Urine WBC (Auto) Fluid Glucose Fluid Total Protein Vancomycin Trough Crossmatch 11/08/21 11/08/21 11/08/21 03:10 18:05 23:43 WBC RBC Hgb Hct MCV MCH MCHC RDW Plt Count Eos % (Auto) Eos # (Auto) Seg Neuts % (Manual) Lymphocytes % (Manual) Seg Neutrophils # Seg Neutrophils # Man Lymphocytes # (Manual) Monocytes # (Manual) PT INR D-Dimer ABG pH ABG pO2 127.4 H ABG HCO3 ABG O2 Saturation ABG Base Excess -3.4 L ABG Hemoglobin 7.4 L Oxyhemoglobin Sodium Potassium Chloride Carbon Dioxide BUN Creatinine Glucose POC Glucose 113 H 141 H Lactic Acid Calcium Phosphorus Magnesium AST ALT Alkaline Phosphatase Lactate Dehydrogenase Troponin T C-Reactive Protein NT-Pro-B Natriuret Pep Total Protein Albumin LDL Cholesterol Direct Vitamin B12 Urine WBC (Auto) Fluid Glucose Fluid Total Protein Vancomycin Trough Crossmatch 11/08/21 11/08/21 11/09/21 Unknown Unknown 02:00 WBC 14.5 H RBC 3.35 L Hgb 7.5 L 8.1 L Hct 25.4 L 27.6 L MCV 76 L 76 L MCH 23 L 22 L MCHC RDW 19.9 H 19.9 H Plt Count Eos % (Auto) Eos # (Auto) Seg Neuts % (Manual) Lymphocytes % (Manual) Seg Neutrophils # Seg Neutrophils # Man Lymphocytes # (Manual) Monocytes # (Manual) PT INR D-Dimer ABG pH ABG pO2 ABG HCO3 ABG O2 Saturation ABG Base Excess ABG Hemoglobin Oxyhemoglobin Sodium 154 H D Potassium 3.3 L Chloride 120.7 H Carbon Dioxide 20 L BUN 38 H Creatinine Glucose POC Glucose Lactic Acid Calcium 8.3 L Phosphorus Magnesium AST ALT Alkaline Phosphatase Lactate Dehydrogenase Troponin T C-Reactive Protein NT-Pro-B Natriuret Pep Total Protein Albumin LDL Cholesterol Direct Vitamin B12 Urine WBC (Auto) Fluid Glucose Fluid Total Protein Vancomycin Trough Crossmatch 11/09/21 11/09/21 11/09/21 02:00 02:31 05:12 WBC RBC Hgb Hct MCV MCH MCHC RDW Plt Count Eos % (Auto) Eos # (Auto) Seg Neuts % (Manual) Lymphocytes % (Manual) Seg Neutrophils # Seg Neutrophils # Man Lymphocytes # (Manual) Monocytes # (Manual) PT INR D-Dimer ABG pH 7.479 H ABG pO2 121.3 H ABG HCO3 ABG O2 Saturation ABG Base Excess ABG Hemoglobin 7.3 L Oxyhemoglobin Sodium Potassium Chloride 112.5 H Carbon Dioxide BUN 33 H Creatinine Glucose 161 H POC Glucose 135 H Lactic Acid Calcium Phosphorus Magnesium AST 251 H ALT 481 H Alkaline Phosphatase Lactate Dehydrogenase Troponin T C-Reactive Protein NT-Pro-B Natriuret Pep Total Protein 5.0 L Albumin 2.8 L LDL Cholesterol Direct Vitamin B12 Urine WBC (Auto) Fluid Glucose Fluid Total Protein Vancomycin Trough Crossmatch 11/09/21 11/09/21 11/09/21 11:33 16:32 23:28 WBC RBC Hgb Hct MCV MCH MCHC RDW Plt Count Eos % (Auto) Eos # (Auto) Seg Neuts % (Manual) Lymphocytes % (Manual) Seg Neutrophils # Seg Neutrophils # Man Lymphocytes # (Manual) Monocytes # (Manual) PT INR D-Dimer ABG pH ABG pO2 ABG HCO3 ABG O2 Saturation ABG Base Excess ABG Hemoglobin Oxyhemoglobin Sodium Potassium Chloride Carbon Dioxide BUN Creatinine Glucose POC Glucose 132 H 133 H 143 H Lactic Acid Calcium Phosphorus Magnesium AST ALT Alkaline Phosphatase Lactate Dehydrogenase Troponin T C-Reactive Protein NT-Pro-B Natriuret Pep Total Protein Albumin LDL Cholesterol Direct Vitamin B12 Urine WBC (Auto) Fluid Glucose Fluid Total Protein Vancomycin Trough Crossmatch 11/10/21 11/10/21 11/10/21 04:00 04:00 05:35 WBC 16.0 H RBC 3.61 L Hgb 8.0 L Hct 27.1 L MCV 75 L MCH 22 L MCHC RDW 20.4 H Plt Count Eos % (Auto) Eos # (Auto) Seg Neuts % (Manual) Lymphocytes % (Manual) Seg Neutrophils # Seg Neutrophils # Man Lymphocytes # (Manual) Monocytes # (Manual) PT INR D-Dimer ABG pH ABG pO2 ABG HCO3 ABG O2 Saturation ABG Base Excess ABG Hemoglobin Oxyhemoglobin Sodium 149 H Potassium Chloride 114.1 H Carbon Dioxide BUN 31 H Creatinine Glucose 148 H POC Glucose 132 H Lactic Acid Calcium 8.2 L Phosphorus Magnesium AST ALT Alkaline Phosphatase Lactate Dehydrogenase Troponin T C-Reactive Protein NT-Pro-B Natriuret Pep Total Protein Albumin LDL Cholesterol Direct Vitamin B12 Urine WBC (Auto) Fluid Glucose Fluid Total Protein Vancomycin Trough Crossmatch 11/10/21 11/10/21 11/10/21 11:31 14:08 15:35 WBC RBC Hgb Hct MCV MCH MCHC RDW Plt Count Eos % (Auto) Eos # (Auto) Seg Neuts % (Manual) Lymphocytes % (Manual) Seg Neutrophils # Seg Neutrophils # Man Lymphocytes # (Manual) Monocytes # (Manual) PT INR D-Dimer ABG pH ABG pO2 126.6 H ABG HCO3 ABG O2 Saturation ABG Base Excess ABG Hemoglobin 7.4 L Oxyhemoglobin Sodium Potassium Chloride Carbon Dioxide BUN Creatinine Glucose POC Glucose 147 H Lactic Acid Calcium Phosphorus Magnesium AST ALT Alkaline Phosphatase Lactate Dehydrogenase Troponin T C-Reactive Protein NT-Pro-B Natriuret Pep Total Protein Albumin LDL Cholesterol Direct Vitamin B12 1823 H Urine WBC (Auto) Fluid Glucose Fluid Total Protein Vancomycin Trough Crossmatch 11/10/21 11/11/21 11/11/21 17:53 00:55 04:28 WBC RBC Hgb Hct MCV MCH MCHC RDW Plt Count Eos % (Auto) Eos # (Auto) Seg Neuts % (Manual) Lymphocytes % (Manual) Seg Neutrophils # Seg Neutrophils # Man Lymphocytes # (Manual) Monocytes # (Manual) PT INR D-Dimer ABG pH ABG pO2 ABG HCO3 ABG O2 Saturation ABG Base Excess ABG Hemoglobin Oxyhemoglobin Sodium 149 H Potassium Chloride 112.2 H Carbon Dioxide BUN 34 H Creatinine Glucose 148 H POC Glucose 140 H 145 H Lactic Acid Calcium 7.9 L Phosphorus Magnesium AST 53 H ALT 203 H Alkaline Phosphatase Lactate Dehydrogenase Troponin T C-Reactive Protein NT-Pro-B Natriuret Pep Total Protein 4.9 L Albumin 2.6 L LDL Cholesterol Direct Vitamin B12 Urine WBC (Auto) Fluid Glucose Fluid Total Protein Vancomycin Trough Crossmatch 11/11/21 11/11/21 11/11/21 04:28 04:28 05:28 WBC 20.9 H RBC 3.47 L Hgb 7.5 L Hct 26.0 L MCV 75 L MCH 22 L MCHC 29 L RDW 21.6 H Plt Count 132 L Eos % (Auto) Eos # (Auto) Seg Neuts % (Manual) Lymphocytes % (Manual) Seg Neutrophils # Seg Neutrophils # Man Lymphocytes # (Manual) Monocytes # (Manual) PT INR D-Dimer 2655.00 H ABG pH ABG pO2 ABG HCO3 ABG O2 Saturation ABG Base Excess ABG Hemoglobin Oxyhemoglobin Sodium Potassium Chloride Carbon Dioxide BUN Creatinine Glucose POC Glucose 154 H Lactic Acid Calcium Phosphorus Magnesium AST ALT Alkaline Phosphatase Lactate Dehydrogenase Troponin T C-Reactive Protein NT-Pro-B Natriuret Pep Total Protein Albumin LDL Cholesterol Direct Vitamin B12 Urine WBC (Auto) Fluid Glucose Fluid Total Protein Vancomycin Trough Crossmatch 11/11/21 11/11/21 11/12/21 12:38 18:13 00:14 WBC RBC Hgb Hct MCV MCH MCHC RDW Plt Count Eos % (Auto) Eos # (Auto) Seg Neuts % (Manual) Lymphocytes % (Manual) Seg Neutrophils # Seg Neutrophils # Man Lymphocytes # (Manual) Monocytes # (Manual) PT INR D-Dimer ABG pH ABG pO2 ABG HCO3 ABG O2 Saturation ABG Base Excess ABG Hemoglobin Oxyhemoglobin Sodium Potassium Chloride Carbon Dioxide BUN Creatinine Glucose POC Glucose 137 H 108 H 137 H Lactic Acid Calcium Phosphorus Magnesium AST ALT Alkaline Phosphatase Lactate Dehydrogenase Troponin T C-Reactive Protein NT-Pro-B Natriuret Pep Total Protein Albumin LDL Cholesterol Direct Vitamin B12 Urine WBC (Auto) Fluid Glucose Fluid Total Protein Vancomycin Trough Crossmatch 11/12/21 11/12/21 11/12/21 05:40 06:24 11:12 WBC RBC Hgb Hct MCV MCH MCHC RDW Plt Count Eos % (Auto) Eos # (Auto) Seg Neuts % (Manual) Lymphocytes % (Manual) Seg Neutrophils # Seg Neutrophils # Man Lymphocytes # (Manual) Monocytes # (Manual) PT INR D-Dimer ABG pH 7.586 H ABG pO2 150.6 H ABG HCO3 27.2 H ABG O2 Saturation 99.1 H ABG Base Excess 5.2 H ABG Hemoglobin 7.5 L Oxyhemoglobin Sodium Potassium Chloride Carbon Dioxide BUN Creatinine Glucose POC Glucose 132 H 140 H Lactic Acid Calcium Phosphorus Magnesium AST ALT Alkaline Phosphatase Lactate Dehydrogenase Troponin T C-Reactive Protein NT-Pro-B Natriuret Pep Total Protein Albumin LDL Cholesterol Direct Vitamin B12 Urine WBC (Auto) Fluid Glucose Fluid Total Protein Vancomycin Trough Crossmatch 11/12/21 11/12/21 11/12/21 14:50 14:50 17:13 WBC 19.8 H RBC 3.27 L Hgb 7.1 L Hct 24.5 L MCV 75 L MCH 22 L MCHC 29 L RDW 22.3 H Plt Count Eos % (Auto) Eos # (Auto) Seg Neuts % (Manual) Lymphocytes % (Manual) Seg Neutrophils # Seg Neutrophils # Man Lymphocytes # (Manual) Monocytes # (Manual) PT INR D-Dimer ABG pH ABG pO2 ABG HCO3 ABG O2 Saturation ABG Base Excess ABG Hemoglobin Oxyhemoglobin Sodium 150 H Potassium 3.3 L Chloride 112.0 H Carbon Dioxide BUN 40 H Creatinine Glucose 151 H POC Glucose 121 H Lactic Acid Calcium 7.4 L Phosphorus 1.70 L Magnesium 1.40 L AST ALT Alkaline Phosphatase Lactate Dehydrogenase Troponin T C-Reactive Protein NT-Pro-B Natriuret Pep Total Protein Albumin LDL Cholesterol Direct Vitamin B12 Urine WBC (Auto) Fluid Glucose Fluid Total Protein Vancomycin Trough Crossmatch 11/12/21 11/13/21 11/13/21 23:19 05:34 06:30 WBC RBC Hgb Hct MCV MCH MCHC RDW Plt Count Eos % (Auto) Eos # (Auto) Seg Neuts % (Manual) Lymphocytes % (Manual) Seg Neutrophils # Seg Neutrophils # Man Lymphocytes # (Manual) Monocytes # (Manual) PT INR D-Dimer ABG pH ABG pO2 ABG HCO3 ABG O2 Saturation ABG Base Excess ABG Hemoglobin Oxyhemoglobin Sodium 149 H Potassium Chloride 60.0 L Carbon Dioxide BUN 40 H Creatinine Glucose 146 H POC Glucose 113 H 132 H Lactic Acid Calcium 7.3 L Phosphorus Magnesium 2.40 H AST ALT 72 H Alkaline Phosphatase Lactate Dehydrogenase Troponin T C-Reactive Protein NT-Pro-B Natriuret Pep Total Protein 5.2 L Albumin 2.2 L LDL Cholesterol Direct Vitamin B12 Urine WBC (Auto) Fluid Glucose Fluid Total Protein Vancomycin Trough Crossmatch 11/13/21 11/13/21 11/13/21 06:30 08:30 11:19 WBC 21.2 H RBC 3.12 L Hgb 6.8 L Hct 23.2 L MCV 74 L MCH 22 L MCHC 29 L RDW 22.2 H Plt Count 135 L Eos % (Auto) Eos # (Auto) Seg Neuts % (Manual) Lymphocytes % (Manual) Seg Neutrophils # Seg Neutrophils # Man Lymphocytes # (Manual) Monocytes # (Manual) PT INR D-Dimer ABG pH ABG pO2 ABG HCO3 ABG O2 Saturation ABG Base Excess ABG Hemoglobin Oxyhemoglobin Sodium Potassium Chloride Carbon Dioxide BUN Creatinine Glucose POC Glucose 136 H Lactic Acid Calcium Phosphorus Magnesium AST ALT Alkaline Phosphatase Lactate Dehydrogenase Troponin T C-Reactive Protein NT-Pro-B Natriuret Pep Total Protein Albumin LDL Cholesterol Direct Vitamin B12 Urine WBC (Auto) Fluid Glucose Fluid Total Protein Vancomycin Trough Crossmatch See Detail 11/13/21 11/14/21 11/14/21 18:21 00:01 04:46 WBC 20.0 H RBC 3.41 L Hgb 7.9 L Hct 26.8 L MCV MCH 23 L MCHC 29 L RDW 24.0 H Plt Count Eos % (Auto) Eos # (Auto) Seg Neuts % (Manual) Lymphocytes % (Manual) Seg Neutrophils # Seg Neutrophils # Man Lymphocytes # (Manual) Monocytes # (Manual) PT INR D-Dimer ABG pH ABG pO2 ABG HCO3 ABG O2 Saturation ABG Base Excess ABG Hemoglobin Oxyhemoglobin Sodium Potassium Chloride Carbon Dioxide BUN Creatinine Glucose POC Glucose 149 H 141 H Lactic Acid Calcium Phosphorus Magnesium AST ALT Alkaline Phosphatase Lactate Dehydrogenase Troponin T C-Reactive Protein NT-Pro-B Natriuret Pep Total Protein Albumin LDL Cholesterol Direct Vitamin B12 Urine WBC (Auto) Fluid Glucose Fluid Total Protein Vancomycin Trough Crossmatch 11/14/21 11/14/21 11/14/21 04:46 05:10 11:10 WBC RBC Hgb Hct MCV MCH MCHC RDW Plt Count Eos % (Auto) Eos # (Auto) Seg Neuts % (Manual) Lymphocytes % (Manual) Seg Neutrophils # Seg Neutrophils # Man Lymphocytes # (Manual) Monocytes # (Manual) PT INR D-Dimer ABG pH ABG pO2 ABG HCO3 ABG O2 Saturation ABG Base Excess ABG Hemoglobin Oxyhemoglobin Sodium 148 H Potassium Chloride 113.1 H Carbon Dioxide BUN 43 H Creatinine Glucose 140 H POC Glucose 132 H 133 H Lactic Acid Calcium 7.5 L Phosphorus Magnesium AST ALT Alkaline Phosphatase Lactate Dehydrogenase Troponin T C-Reactive Protein NT-Pro-B Natriuret Pep Total Protein Albumin LDL Cholesterol Direct Vitamin B12 Urine WBC (Auto) Fluid Glucose Fluid Total Protein Vancomycin Trough Crossmatch 11/14/21 11/14/21 11/14/21 16:14 17:48 23:23 WBC RBC Hgb Hct MCV MCH MCHC RDW Plt Count Eos % (Auto) Eos # (Auto) Seg Neuts % (Manual) Lymphocytes % (Manual) Seg Neutrophils # Seg Neutrophils # Man Lymphocytes # (Manual) Monocytes # (Manual) PT INR D-Dimer ABG pH ABG pO2 ABG HCO3 28.0 H ABG O2 Saturation ABG Base Excess 3.1 H ABG Hemoglobin 5.8 L Oxyhemoglobin 94.8 L Sodium Potassium Chloride Carbon Dioxide BUN Creatinine Glucose POC Glucose 130 H 136 H Lactic Acid Calcium Phosphorus Magnesium AST ALT Alkaline Phosphatase Lactate Dehydrogenase Troponin T C-Reactive Protein NT-Pro-B Natriuret Pep Total Protein Albumin LDL Cholesterol Direct Vitamin B12 Urine WBC (Auto) Fluid Glucose Fluid Total Protein Vancomycin Trough Crossmatch 11/15/21 11/15/21 11/15/21 05:20 05:50 05:50 WBC 19.9 H RBC 3.50 L Hgb 8.2 L Hct 27.9 L MCV MCH 23 L MCHC 29 L RDW 24.9 H Plt Count Eos % (Auto) Eos # (Auto) Seg Neuts % (Manual) Lymphocytes % (Manual) Seg Neutrophils # Seg Neutrophils # Man Lymphocytes # (Manual) Monocytes # (Manual) PT INR D-Dimer ABG pH ABG pO2 ABG HCO3 ABG O2 Saturation ABG Base Excess ABG Hemoglobin Oxyhemoglobin Sodium 149 H Potassium Chloride 112.0 H Carbon Dioxide BUN 48 H Creatinine Glucose 152 H POC Glucose 137 H Lactic Acid Calcium 7.9 L Phosphorus Magnesium AST ALT Alkaline Phosphatase Lactate Dehydrogenase Troponin T C-Reactive Protein NT-Pro-B Natriuret Pep Total Protein Albumin LDL Cholesterol Direct Vitamin B12 Urine WBC (Auto) Fluid Glucose Fluid Total Protein Vancomycin Trough Crossmatch 11/15/21 11/15/21 11/15/21 12:12 17:07 23:24 WBC RBC Hgb Hct MCV MCH MCHC RDW Plt Count Eos % (Auto) Eos # (Auto) Seg Neuts % (Manual) Lymphocytes % (Manual) Seg Neutrophils # Seg Neutrophils # Man Lymphocytes # (Manual) Monocytes # (Manual) PT INR D-Dimer ABG pH ABG pO2 ABG HCO3 ABG O2 Saturation ABG Base Excess ABG Hemoglobin Oxyhemoglobin Sodium Potassium Chloride Carbon Dioxide BUN Creatinine Glucose POC Glucose 114 H 135 H 123 H Lactic Acid Calcium Phosphorus Magnesium AST ALT Alkaline Phosphatase Lactate Dehydrogenase Troponin T C-Reactive Protein NT-Pro-B Natriuret Pep Total Protein Albumin LDL Cholesterol Direct Vitamin B12 Urine WBC (Auto) Fluid Glucose Fluid Total Protein Vancomycin Trough Crossmatch 11/16/21 11/16/21 11/16/21 05:21 10:00 10:00 WBC 21.7 H RBC 2.57 L Hgb 6.0 L Hct 20.2 L D MCV MCH 24 L MCHC RDW 26.3 H Plt Count Eos % (Auto) Eos # (Auto) Seg Neuts % (Manual) Lymphocytes % (Manual) Seg Neutrophils # Seg Neutrophils # Man Lymphocytes # (Manual) Monocytes # (Manual) PT INR D-Dimer ABG pH ABG pO2 ABG HCO3 ABG O2 Saturation ABG Base Excess ABG Hemoglobin Oxyhemoglobin Sodium 153 H Potassium Chloride 114.9 H Carbon Dioxide BUN 74 H Creatinine Glucose 155 H POC Glucose 127 H Lactic Acid Calcium 8.1 L Phosphorus Magnesium AST ALT Alkaline Phosphatase Lactate Dehydrogenase Troponin T C-Reactive Protein NT-Pro-B Natriuret Pep Total Protein Albumin LDL Cholesterol Direct Vitamin B12 Urine WBC (Auto) Fluid Glucose Fluid Total Protein Vancomycin Trough Crossmatch 11/16/21 11/16/21 11/16/21 11:34 14:00 15:25 WBC 17.2 H RBC 2.08 L Hgb 4.7 L* Hct 16.2 L* MCV 78 L MCH 23 L MCHC 29 L RDW 26.0 H Plt Count Eos % (Auto) Eos # (Auto) Seg Neuts % (Manual) 87.0 H Lymphocytes % (Manual) 8.0 L Seg Neutrophils # Seg Neutrophils # Man 15.0 H Lymphocytes # (Manual) Monocytes # (Manual) 0.9 H PT INR D-Dimer ABG pH ABG pO2 ABG HCO3 ABG O2 Saturation ABG Base Excess ABG Hemoglobin Oxyhemoglobin Sodium Potassium Chloride Carbon Dioxide BUN Creatinine Glucose POC Glucose 131 H Lactic Acid Calcium Phosphorus Magnesium AST ALT Alkaline Phosphatase Lactate Dehydrogenase Troponin T C-Reactive Protein NT-Pro-B Natriuret Pep Total Protein Albumin LDL Cholesterol Direct Vitamin B12 Urine WBC (Auto) Fluid Glucose Fluid Total Protein Vancomycin Trough Crossmatch See Detail 11/16/21 11/16/21 11/16/21 15:25 17:21 22:43 WBC RBC Hgb 8.6 L D Hct 27.7 L D MCV MCH MCHC RDW Plt Count Eos % (Auto) Eos # (Auto) Seg Neuts % (Manual) Lymphocytes % (Manual) Seg Neutrophils # Seg Neutrophils # Man Lymphocytes # (Manual) Monocytes # (Manual) PT INR D-Dimer ABG pH ABG pO2 ABG HCO3 ABG O2 Saturation ABG Base Excess ABG Hemoglobin Oxyhemoglobin Sodium 148 H Potassium Chloride 113.2 H Carbon Dioxide BUN 84 H Creatinine Glucose 164 H POC Glucose 124 H Lactic Acid Calcium 7.6 L Phosphorus Magnesium AST ALT Alkaline Phosphatase Lactate Dehydrogenase Troponin T C-Reactive Protein NT-Pro-B Natriuret Pep Total Protein Albumin LDL Cholesterol Direct Vitamin B12 Urine WBC (Auto) Fluid Glucose Fluid Total Protein Vancomycin Trough Crossmatch 11/16/21 11/17/21 11/17/21 23:07 05:33 05:56 WBC 25.1 H RBC 3.47 L Hgb 8.7 L Hct 28.5 L MCV MCH 25 L MCHC RDW 22.3 H Plt Count Eos % (Auto) Eos # (Auto) Seg Neuts % (Manual) Lymphocytes % (Manual) Seg Neutrophils # Seg Neutrophils # Man Lymphocytes # (Manual) Monocytes # (Manual) PT INR D-Dimer ABG pH ABG pO2 ABG HCO3 ABG O2 Saturation ABG Base Excess ABG Hemoglobin Oxyhemoglobin Sodium Potassium Chloride Carbon Dioxide BUN Creatinine Glucose POC Glucose 128 H 133 H Lactic Acid Calcium Phosphorus Magnesium AST ALT Alkaline Phosphatase Lactate Dehydrogenase Troponin T C-Reactive Protein NT-Pro-B Natriuret Pep Total Protein Albumin LDL Cholesterol Direct Vitamin B12 Urine WBC (Auto) Fluid Glucose Fluid Total Protein Vancomycin Trough Crossmatch 11/17/21 11/17/21 11/17/21 05:56 11:00 11:55 WBC RBC Hgb 8.3 L Hct 26.9 L MCV MCH MCHC RDW Plt Count Eos % (Auto) Eos # (Auto) Seg Neuts % (Manual) Lymphocytes % (Manual) Seg Neutrophils # Seg Neutrophils # Man Lymphocytes # (Manual) Monocytes # (Manual) PT INR D-Dimer ABG pH ABG pO2 ABG HCO3 ABG O2 Saturation ABG Base Excess ABG Hemoglobin Oxyhemoglobin Sodium 151 H Potassium Chloride 113.6 H Carbon Dioxide BUN 85 H Creatinine Glucose 132 H POC Glucose 121 H Lactic Acid Calcium 7.8 L Phosphorus Magnesium AST ALT Alkaline Phosphatase Lactate Dehydrogenase Troponin T C-Reactive Protein NT-Pro-B Natriuret Pep Total Protein 5.1 L Albumin 2.2 L LDL Cholesterol Direct Vitamin B12 Urine WBC (Auto) Fluid Glucose Fluid Total Protein Vancomycin Trough Crossmatch 11/17/21 11/17/21 11/18/21 18:04 18:55 00:26 WBC RBC Hgb 7.5 L 7.1 L Hct 24.8 L 23.6 L MCV MCH MCHC RDW Plt Count Eos % (Auto) Eos # (Auto) Seg Neuts % (Manual) Lymphocytes % (Manual) Seg Neutrophils # Seg Neutrophils # Man Lymphocytes # (Manual) Monocytes # (Manual) PT INR D-Dimer ABG pH ABG pO2 ABG HCO3 ABG O2 Saturation ABG Base Excess ABG Hemoglobin Oxyhemoglobin Sodium Potassium Chloride Carbon Dioxide BUN Creatinine Glucose POC Glucose 144 H Lactic Acid Calcium Phosphorus Magnesium AST ALT Alkaline Phosphatase Lactate Dehydrogenase Troponin T C-Reactive Protein NT-Pro-B Natriuret Pep Total Protein Albumin LDL Cholesterol Direct Vitamin B12 Urine WBC (Auto) Fluid Glucose Fluid Total Protein Vancomycin Trough Crossmatch 11/18/21 11/18/21 11/18/21 00:43 05:10 05:10 WBC 12.5 H RBC 2.39 L Hgb 6.1 L Hct 20.2 L MCV MCH 25 L MCHC RDW 23.2 H Plt Count Eos % (Auto) Eos # (Auto) Seg Neuts % (Manual) Lymphocytes % (Manual) Seg Neutrophils # Seg Neutrophils # Man Lymphocytes # (Manual) Monocytes # (Manual) PT INR D-Dimer ABG pH ABG pO2 ABG HCO3 ABG O2 Saturation ABG Base Excess ABG Hemoglobin Oxyhemoglobin Sodium 131 L D Potassium 2.9 L* D Chloride 97.8 L Carbon Dioxide BUN 58 H Creatinine Glucose 665 H* POC Glucose 139 H Lactic Acid Calcium 7.0 L Phosphorus 2.20 L D Magnesium 1.50 L AST ALT Alkaline Phosphatase Lactate Dehydrogenase Troponin T C-Reactive Protein NT-Pro-B Natriuret Pep Total Protein Albumin LDL Cholesterol Direct Vitamin B12 Urine WBC (Auto) Fluid Glucose Fluid Total Protein Vancomycin Trough Crossmatch 11/18/21 11/18/21 11/18/21 05:23 07:10 10:45 WBC RBC Hgb Hct MCV MCH MCHC RDW Plt Count Eos % (Auto) Eos # (Auto) Seg Neuts % (Manual) Lymphocytes % (Manual) Seg Neutrophils # Seg Neutrophils # Man Lymphocytes # (Manual) Monocytes # (Manual) PT INR D-Dimer ABG pH ABG pO2 ABG HCO3 ABG O2 Saturation ABG Base Excess ABG Hemoglobin Oxyhemoglobin Sodium 148 H D Potassium 3.1 L Chloride 111.9 H Carbon Dioxide BUN 63 H Creatinine Glucose 141 H POC Glucose 124 H Lactic Acid Calcium 8.1 L D Phosphorus Magnesium AST ALT Alkaline Phosphatase Lactate Dehydrogenase Troponin T C-Reactive Protein NT-Pro-B Natriuret Pep Total Protein Albumin LDL Cholesterol Direct Vitamin B12 Urine WBC (Auto) Fluid Glucose Fluid Total Protein Vancomycin Trough Crossmatch See Detail 11/18/21 11/19/21 11/19/21 11:57 00:19 04:55 WBC RBC 3.35 L Hgb 9.0 L 8.9 L Hct 28.3 L D 28.1 L MCV MCH 27 L MCHC RDW 20.3 H Plt Count Eos % (Auto) Eos # (Auto) Seg Neuts % (Manual) Lymphocytes % (Manual) Seg Neutrophils # Seg Neutrophils # Man Lymphocytes # (Manual) Monocytes # (Manual) PT INR D-Dimer ABG pH ABG pO2 ABG HCO3 ABG O2 Saturation ABG Base Excess ABG Hemoglobin Oxyhemoglobin Sodium Potassium Chloride Carbon Dioxide BUN Creatinine Glucose POC Glucose 119 H Lactic Acid Calcium Phosphorus Magnesium AST ALT Alkaline Phosphatase Lactate Dehydrogenase Troponin T C-Reactive Protein NT-Pro-B Natriuret Pep Total Protein Albumin LDL Cholesterol Direct Vitamin B12 Urine WBC (Auto) Fluid Glucose Fluid Total Protein Vancomycin Trough Crossmatch 11/19/21 11/19/21 11/20/21 04:55 05:42 00:55 WBC RBC Hgb 9.0 L Hct 28.6 L MCV MCH MCHC RDW Plt Count Eos % (Auto) Eos # (Auto) Seg Neuts % (Manual) Lymphocytes % (Manual) Seg Neutrophils # Seg Neutrophils # Man Lymphocytes # (Manual) Monocytes # (Manual) PT INR D-Dimer ABG pH ABG pO2 ABG HCO3 ABG O2 Saturation ABG Base Excess ABG Hemoglobin Oxyhemoglobin Sodium Potassium 3.5 L Chloride 108.6 H Carbon Dioxide BUN 47 H Creatinine Glucose 207 H POC Glucose 63 L Lactic Acid Calcium 7.1 L Phosphorus Magnesium AST ALT Alkaline Phosphatase Lactate Dehydrogenase Troponin T C-Reactive Protein NT-Pro-B Natriuret Pep Total Protein Albumin LDL Cholesterol Direct Vitamin B12 Urine WBC (Auto) Fluid Glucose Fluid Total Protein Vancomycin Trough Crossmatch 11/20/21 11/20/21 11/20/21 05:40 05:40 Unknown WBC RBC 3.40 L Hgb 9.1 L Hct 28.8 L MCV MCH 27 L MCHC RDW 20.7 H Plt Count Eos % (Auto) Eos # (Auto) Seg Neuts % (Manual) Lymphocytes % (Manual) Seg Neutrophils # Seg Neutrophils # Man Lymphocytes # (Manual) Monocytes # (Manual) PT INR D-Dimer ABG pH ABG pO2 ABG HCO3 ABG O2 Saturation ABG Base Excess -2.7 L ABG Hemoglobin 9.5 L Oxyhemoglobin 94.3 L Sodium Potassium 3.5 L Chloride 108.9 H Carbon Dioxide BUN 37 H Creatinine Glucose 117 H POC Glucose Lactic Acid Calcium 7.5 L Phosphorus Magnesium AST ALT Alkaline Phosphatase Lactate Dehydrogenase Troponin T C-Reactive Protein NT-Pro-B Natriuret Pep Total Protein Albumin LDL Cholesterol Direct Vitamin B12 Urine WBC (Auto) Fluid Glucose Fluid Total Protein Vancomycin Trough Crossmatch 11/21/21 11/21/21 11/21/21 04:30 04:30 16:00 WBC RBC 3.25 L Hgb 8.6 L Hct 28.1 L MCV MCH 26 L MCHC RDW 20.7 H Plt Count Eos % (Auto) Eos # (Auto) Seg Neuts % (Manual) Lymphocytes % (Manual) Seg Neutrophils # Seg Neutrophils # Man Lymphocytes # (Manual) Monocytes # (Manual) PT INR D-Dimer ABG pH ABG pO2 114.2 H ABG HCO3 ABG O2 Saturation ABG Base Excess ABG Hemoglobin 9.1 L Oxyhemoglobin Sodium 134 L Potassium Chloride Carbon Dioxide 20 L BUN 34 H Creatinine Glucose POC Glucose Lactic Acid Calcium 7.1 L Phosphorus Magnesium AST ALT Alkaline Phosphatase Lactate Dehydrogenase Troponin T C-Reactive Protein NT-Pro-B Natriuret Pep Total Protein Albumin LDL Cholesterol Direct Vitamin B12 Urine WBC (Auto) Fluid Glucose Fluid Total Protein Vancomycin Trough Crossmatch 11/22/21 11/22/21 11/22/21 07:07 07:07 23:54 WBC RBC 3.30 L Hgb 9.0 L Hct 28.5 L MCV MCH 27 L MCHC RDW 21.0 H Plt Count Eos % (Auto) Eos # (Auto) Seg Neuts % (Manual) Lymphocytes % (Manual) Seg Neutrophils # Seg Neutrophils # Man Lymphocytes # (Manual) Monocytes # (Manual) PT INR D-Dimer ABG pH ABG pO2 ABG HCO3 ABG O2 Saturation ABG Base Excess ABG Hemoglobin Oxyhemoglobin Sodium Potassium Chloride Carbon Dioxide BUN 32 H Creatinine Glucose 106 H POC Glucose 110 H Lactic Acid Calcium 7.5 L Phosphorus Magnesium AST ALT Alkaline Phosphatase Lactate Dehydrogenase Troponin T C-Reactive Protein NT-Pro-B Natriuret Pep Total Protein Albumin LDL Cholesterol Direct Vitamin B12 Urine WBC (Auto) Fluid Glucose Fluid Total Protein Vancomycin Trough Crossmatch 11/23/21 11/23/21 11/23/21 04:38 04:38 06:01 WBC RBC 3.23 L Hgb 8.8 L Hct 28.0 L MCV MCH 27 L MCHC RDW 21.3 H Plt Count Eos % (Auto) Eos # (Auto) Seg Neuts % (Manual) Lymphocytes % (Manual) Seg Neutrophils # Seg Neutrophils # Man Lymphocytes # (Manual) Monocytes # (Manual) PT INR D-Dimer ABG pH ABG pO2 ABG HCO3 ABG O2 Saturation ABG Base Excess ABG Hemoglobin Oxyhemoglobin Sodium 136 L Potassium Chloride Carbon Dioxide 20 L BUN 32 H Creatinine Glucose 109 H POC Glucose 115 H Lactic Acid Calcium 7.7 L Phosphorus Magnesium AST ALT Alkaline Phosphatase Lactate Dehydrogenase Troponin T C-Reactive Protein NT-Pro-B Natriuret Pep Total Protein Albumin LDL Cholesterol Direct Vitamin B12 Urine WBC (Auto) Fluid Glucose Fluid Total Protein Vancomycin Trough Crossmatch 11/23/21 11/24/21 11/24/21 11:40 00:03 04:13 WBC RBC 3.18 L Hgb 8.5 L Hct 27.5 L MCV MCH 27 L MCHC RDW 21.6 H Plt Count Eos % (Auto) Eos # (Auto) Seg Neuts % (Manual) Lymphocytes % (Manual) Seg Neutrophils # Seg Neutrophils # Man Lymphocytes # (Manual) Monocytes # (Manual) PT INR D-Dimer ABG pH ABG pO2 ABG HCO3 ABG O2 Saturation ABG Base Excess ABG Hemoglobin Oxyhemoglobin Sodium Potassium Chloride Carbon Dioxide BUN Creatinine Glucose POC Glucose 117 H 111 H Lactic Acid Calcium Phosphorus Magnesium AST ALT Alkaline Phosphatase Lactate Dehydrogenase Troponin T C-Reactive Protein NT-Pro-B Natriuret Pep Total Protein Albumin LDL Cholesterol Direct Vitamin B12 Urine WBC (Auto) Fluid Glucose Fluid Total Protein Vancomycin Trough Crossmatch 11/24/21 11/24/21 11/24/21 04:13 05:30 11:10 WBC RBC Hgb Hct MCV MCH MCHC RDW Plt Count Eos % (Auto) Eos # (Auto) Seg Neuts % (Manual) Lymphocytes % (Manual) Seg Neutrophils # Seg Neutrophils # Man Lymphocytes # (Manual) Monocytes # (Manual) PT INR D-Dimer ABG pH ABG pO2 ABG HCO3 ABG O2 Saturation ABG Base Excess ABG Hemoglobin Oxyhemoglobin Sodium Potassium Chloride Carbon Dioxide BUN 31 H Creatinine Glucose 101 H POC Glucose 115 H 107 H Lactic Acid Calcium 7.7 L Phosphorus Magnesium AST ALT Alkaline Phosphatase Lactate Dehydrogenase Troponin T C-Reactive Protein NT-Pro-B Natriuret Pep Total Protein Albumin LDL Cholesterol Direct Vitamin B12 Urine WBC (Auto) Fluid Glucose Fluid Total Protein Vancomycin Trough Crossmatch 11/24/21 11/24/21 11/25/21 16:34 17:57 05:12 WBC RBC 3.11 L Hgb 8.2 L Hct 26.6 L MCV MCH 26 L MCHC RDW 21.3 H Plt Count Eos % (Auto) Eos # (Auto) Seg Neuts % (Manual) Lymphocytes % (Manual) Seg Neutrophils # Seg Neutrophils # Man Lymphocytes # (Manual) Monocytes # (Manual) PT INR D-Dimer ABG pH ABG pO2 ABG HCO3 ABG O2 Saturation ABG Base Excess ABG Hemoglobin Oxyhemoglobin Sodium Potassium Chloride Carbon Dioxide BUN Creatinine Glucose POC Glucose 115 H 110 H Lactic Acid Calcium Phosphorus Magnesium AST ALT Alkaline Phosphatase Lactate Dehydrogenase Troponin T C-Reactive Protein NT-Pro-B Natriuret Pep Total Protein Albumin LDL Cholesterol Direct Vitamin B12 Urine WBC (Auto) Fluid Glucose Fluid Total Protein Vancomycin Trough Crossmatch 11/25/21 11/25/21 11/26/21 05:12 11:20 05:00 WBC RBC 3.30 L Hgb 8.8 L Hct 28.2 L MCV MCH 27 L MCHC RDW 20.7 H Plt Count Eos % (Auto) Eos # (Auto) Seg Neuts % (Manual) Lymphocytes % (Manual) Seg Neutrophils # Seg Neutrophils # Man Lymphocytes # (Manual) Monocytes # (Manual) PT INR D-Dimer ABG pH ABG pO2 ABG HCO3 ABG O2 Saturation ABG Base Excess ABG Hemoglobin Oxyhemoglobin Sodium Potassium Chloride Carbon Dioxide BUN 32 H Creatinine Glucose 118 H POC Glucose 118 H Lactic Acid Calcium 8.2 L Phosphorus Magnesium AST ALT Alkaline Phosphatase Lactate Dehydrogenase Troponin T C-Reactive Protein NT-Pro-B Natriuret Pep Total Protein Albumin LDL Cholesterol Direct Vitamin B12 Urine WBC (Auto) Fluid Glucose Fluid Total Protein Vancomycin Trough Crossmatch 11/26/21 11/26/21 11/26/21 05:00 05:00 05:44 WBC RBC Hgb Hct MCV MCH MCHC RDW Plt Count Eos % (Auto) Eos # (Auto) Seg Neuts % (Manual) Lymphocytes % (Manual) Seg Neutrophils # Seg Neutrophils # Man Lymphocytes # (Manual) Monocytes # (Manual) PT 16.9 H INR 1.24 H D-Dimer ABG pH ABG pO2 ABG HCO3 ABG O2 Saturation ABG Base Excess ABG Hemoglobin Oxyhemoglobin Sodium Potassium Chloride Carbon Dioxide BUN 31 H Creatinine Glucose 104 H POC Glucose 110 H Lactic Acid Calcium 7.9 L Phosphorus Magnesium AST ALT Alkaline Phosphatase Lactate Dehydrogenase Troponin T C-Reactive Protein NT-Pro-B Natriuret Pep Total Protein Albumin LDL Cholesterol Direct Vitamin B12 Urine WBC (Auto) Fluid Glucose Fluid Total Protein Vancomycin Trough Crossmatch 11/26/21 11/27/21 11/27/21 23:55 07:40 07:40 WBC RBC 3.18 L Hgb 8.5 L Hct 27.0 L MCV MCH 27 L MCHC RDW 21.2 H Plt Count Eos % (Auto) Eos # (Auto) Seg Neuts % (Manual) Lymphocytes % (Manual) Seg Neutrophils # Seg Neutrophils # Man Lymphocytes # (Manual) Monocytes # (Manual) PT INR D-Dimer ABG pH ABG pO2 ABG HCO3 ABG O2 Saturation ABG Base Excess ABG Hemoglobin Oxyhemoglobin Sodium Potassium Chloride Carbon Dioxide BUN 27 H Creatinine Glucose 112 H POC Glucose 63 L Lactic Acid Calcium 7.6 L Phosphorus Magnesium AST ALT Alkaline Phosphatase Lactate Dehydrogenase Troponin T C-Reactive Protein NT-Pro-B Natriuret Pep Total Protein Albumin LDL Cholesterol Direct Vitamin B12 Urine WBC (Auto) Fluid Glucose Fluid Total Protein Vancomycin Trough Crossmatch 11/27/21 11/27/21 11/27/21 12:04 13:40 13:40 WBC RBC 3.31 L Hgb 8.7 L Hct 28.0 L MCV MCH 26 L MCHC RDW 20.7 H Plt Count Eos % (Auto) Eos # (Auto) Seg Neuts % (Manual) Lymphocytes % (Manual) Seg Neutrophils # Seg Neutrophils # Man Lymphocytes # (Manual) Monocytes # (Manual) PT INR D-Dimer ABG pH ABG pO2 ABG HCO3 ABG O2 Saturation ABG Base Excess ABG Hemoglobin Oxyhemoglobin Sodium 136 L Potassium Chloride Carbon Dioxide BUN 25 H Creatinine Glucose 127 H POC Glucose 109 H Lactic Acid Calcium 7.6 L Phosphorus Magnesium 1.40 L AST ALT Alkaline Phosphatase Lactate Dehydrogenase Troponin T C-Reactive Protein NT-Pro-B Natriuret Pep Total Protein Albumin LDL Cholesterol Direct Vitamin B12 Urine WBC (Auto) Fluid Glucose Fluid Total Protein Vancomycin Trough Crossmatch 11/27/21 11/27/21 11/28/21 17:44 23:33 12:20 WBC RBC Hgb Hct MCV MCH MCHC RDW Plt Count Eos % (Auto) Eos # (Auto) Seg Neuts % (Manual) Lymphocytes % (Manual) Seg Neutrophils # Seg Neutrophils # Man Lymphocytes # (Manual) Monocytes # (Manual) PT INR D-Dimer ABG pH ABG pO2 ABG HCO3 ABG O2 Saturation ABG Base Excess ABG Hemoglobin Oxyhemoglobin Sodium Potassium Chloride Carbon Dioxide BUN Creatinine Glucose POC Glucose 107 H 108 H 114 H Lactic Acid Calcium Phosphorus Magnesium AST ALT Alkaline Phosphatase Lactate Dehydrogenase Troponin T C-Reactive Protein NT-Pro-B Natriuret Pep Total Protein Albumin LDL Cholesterol Direct Vitamin B12 Urine WBC (Auto) Fluid Glucose Fluid Total Protein Vancomycin Trough Crossmatch 11/29/21 11/29/21 11/29/21 00:09 03:20 03:20 WBC RBC 3.05 L Hgb 8.2 L Hct 25.8 L MCV MCH 27 L MCHC RDW 20.9 H Plt Count Eos % (Auto) Eos # (Auto) Seg Neuts % (Manual) Lymphocytes % (Manual) Seg Neutrophils # Seg Neutrophils # Man Lymphocytes # (Manual) Monocytes # (Manual) PT INR D-Dimer ABG pH ABG pO2 ABG HCO3 ABG O2 Saturation ABG Base Excess ABG Hemoglobin Oxyhemoglobin Sodium 133 L Potassium Chloride Carbon Dioxide BUN 24 H Creatinine Glucose 137 H POC Glucose 134 H Lactic Acid Calcium 7.4 L Phosphorus Magnesium AST ALT Alkaline Phosphatase Lactate Dehydrogenase Troponin T C-Reactive Protein NT-Pro-B Natriuret Pep Total Protein Albumin LDL Cholesterol Direct Vitamin B12 Urine WBC (Auto) Fluid Glucose Fluid Total Protein Vancomycin Trough Crossmatch 11/29/21 11/29/21 11/29/21 05:38 11:39 17:11 WBC RBC Hgb Hct MCV MCH MCHC RDW Plt Count Eos % (Auto) Eos # (Auto) Seg Neuts % (Manual) Lymphocytes % (Manual) Seg Neutrophils # Seg Neutrophils # Man Lymphocytes # (Manual) Monocytes # (Manual) PT INR D-Dimer ABG pH ABG pO2 ABG HCO3 ABG O2 Saturation ABG Base Excess ABG Hemoglobin Oxyhemoglobin Sodium Potassium Chloride Carbon Dioxide BUN Creatinine Glucose POC Glucose 117 H 143 H 124 H Lactic Acid Calcium Phosphorus Magnesium AST ALT Alkaline Phosphatase Lactate Dehydrogenase Troponin T C-Reactive Protein NT-Pro-B Natriuret Pep Total Protein Albumin LDL Cholesterol Direct Vitamin B12 Urine WBC (Auto) Fluid Glucose Fluid Total Protein Vancomycin Trough Crossmatch 11/29/21 11/30/21 11/30/21 20:15 05:40 05:40 WBC 12.6 H RBC 3.41 L Hgb 9.1 L Hct 28.9 L MCV MCH 27 L MCHC RDW 20.4 H Plt Count Eos % (Auto) Eos # (Auto) Seg Neuts % (Manual) Lymphocytes % (Manual) Seg Neutrophils # Seg Neutrophils # Man Lymphocytes # (Manual) Monocytes # (Manual) PT INR D-Dimer ABG pH ABG pO2 ABG HCO3 ABG O2 Saturation ABG Base Excess ABG Hemoglobin Oxyhemoglobin Sodium Potassium Chloride Carbon Dioxide BUN 24 H Creatinine Glucose 131 H POC Glucose Lactic Acid Calcium 7.6 L Phosphorus Magnesium AST ALT Alkaline Phosphatase Lactate Dehydrogenase Troponin T 0.045 H C-Reactive Protein NT-Pro-B Natriuret Pep Total Protein Albumin LDL Cholesterol Direct 25 L Vitamin B12 Urine WBC (Auto) Fluid Glucose Fluid Total Protein Vancomycin Trough Crossmatch 11/30/21 11/30/21 12/01/21 11:29 16:51 05:00 WBC RBC 2.97 L Hgb 8.0 L Hct 25.0 L MCV MCH 27 L MCHC RDW 20.8 H Plt Count Eos % (Auto) Eos # (Auto) Seg Neuts % (Manual) Lymphocytes % (Manual) Seg Neutrophils # Seg Neutrophils # Man Lymphocytes # (Manual) Monocytes # (Manual) PT INR D-Dimer ABG pH ABG pO2 ABG HCO3 ABG O2 Saturation ABG Base Excess ABG Hemoglobin Oxyhemoglobin Sodium Potassium Chloride Carbon Dioxide BUN Creatinine Glucose POC Glucose 123 H 114 H Lactic Acid Calcium Phosphorus Magnesium AST ALT Alkaline Phosphatase Lactate Dehydrogenase Troponin T C-Reactive Protein NT-Pro-B Natriuret Pep Total Protein Albumin LDL Cholesterol Direct Vitamin B12 Urine WBC (Auto) Fluid Glucose Fluid Total Protein Vancomycin Trough Crossmatch 12/01/21 12/01/21 12/01/21 05:00 05:25 11:54 WBC RBC Hgb Hct MCV MCH MCHC RDW Plt Count Eos % (Auto) Eos # (Auto) Seg Neuts % (Manual) Lymphocytes % (Manual) Seg Neutrophils # Seg Neutrophils # Man Lymphocytes # (Manual) Monocytes # (Manual) PT INR D-Dimer ABG pH ABG pO2 ABG HCO3 ABG O2 Saturation ABG Base Excess ABG Hemoglobin Oxyhemoglobin Sodium 136 L Potassium Chloride Carbon Dioxide BUN 24 H Creatinine Glucose 117 H POC Glucose 108 H 107 H Lactic Acid Calcium 7.5 L Phosphorus Magnesium 1.60 L AST ALT Alkaline Phosphatase Lactate Dehydrogenase Troponin T C-Reactive Protein NT-Pro-B Natriuret Pep Total Protein Albumin LDL Cholesterol Direct Vitamin B12 Urine WBC (Auto) Fluid Glucose Fluid Total Protein Vancomycin Trough Crossmatch 12/01/21 12/02/21 12/02/21 17:40 00:07 04:20 WBC RBC 2.92 L Hgb 7.7 L Hct 24.3 L MCV MCH 26 L MCHC RDW 20.5 H Plt Count Eos % (Auto) Eos # (Auto) Seg Neuts % (Manual) Lymphocytes % (Manual) Seg Neutrophils # Seg Neutrophils # Man Lymphocytes # (Manual) Monocytes # (Manual) PT INR D-Dimer ABG pH ABG pO2 ABG HCO3 ABG O2 Saturation ABG Base Excess ABG Hemoglobin Oxyhemoglobin Sodium Potassium Chloride Carbon Dioxide BUN Creatinine Glucose POC Glucose 123 H 110 H Lactic Acid Calcium Phosphorus Magnesium AST ALT Alkaline Phosphatase Lactate Dehydrogenase Troponin T C-Reactive Protein NT-Pro-B Natriuret Pep Total Protein Albumin LDL Cholesterol Direct Vitamin B12 Urine WBC (Auto) Fluid Glucose Fluid Total Protein Vancomycin Trough Crossmatch 12/02/21 12/02/21 12/02/21 04:20 11:17 18:20 WBC RBC Hgb Hct MCV MCH MCHC RDW Plt Count Eos % (Auto) Eos # (Auto) Seg Neuts % (Manual) Lymphocytes % (Manual) Seg Neutrophils # Seg Neutrophils # Man Lymphocytes # (Manual) Monocytes # (Manual) PT INR D-Dimer ABG pH ABG pO2 ABG HCO3 ABG O2 Saturation ABG Base Excess ABG Hemoglobin Oxyhemoglobin Sodium 135 L Potassium Chloride Carbon Dioxide BUN 26 H Creatinine Glucose 121 H POC Glucose 117 H 113 H Lactic Acid Calcium 7.4 L Phosphorus Magnesium AST ALT Alkaline Phosphatase Lactate Dehydrogenase Troponin T C-Reactive Protein NT-Pro-B Natriuret Pep Total Protein Albumin LDL Cholesterol Direct Vitamin B12 Urine WBC (Auto) Fluid Glucose Fluid Total Protein Vancomycin Trough Crossmatch 12/03/21 12/03/21 12/03/21 00:12 04:00 04:00 WBC RBC 2.99 L Hgb 7.8 L Hct 24.6 L MCV MCH 26 L MCHC RDW 20.2 H Plt Count Eos % (Auto) Eos # (Auto) Seg Neuts % (Manual) Lymphocytes % (Manual) Seg Neutrophils # Seg Neutrophils # Man Lymphocytes # (Manual) Monocytes # (Manual) PT INR D-Dimer ABG pH ABG pO2 ABG HCO3 ABG O2 Saturation ABG Base Excess ABG Hemoglobin Oxyhemoglobin Sodium 136 L Potassium Chloride Carbon Dioxide BUN 27 H Creatinine Glucose 133 H POC Glucose 121 H Lactic Acid Calcium 7.5 L Phosphorus Magnesium AST ALT Alkaline Phosphatase Lactate Dehydrogenase Troponin T C-Reactive Protein NT-Pro-B Natriuret Pep Total Protein Albumin LDL Cholesterol Direct Vitamin B12 Urine WBC (Auto) Fluid Glucose Fluid Total Protein Vancomycin Trough Crossmatch 12/03/21 12/03/21 12/03/21 06:30 11:13 16:00 WBC RBC Hgb Hct MCV MCH MCHC RDW Plt Count Eos % (Auto) Eos # (Auto) Seg Neuts % (Manual) Lymphocytes % (Manual) Seg Neutrophils # Seg Neutrophils # Man Lymphocytes # (Manual) Monocytes # (Manual) PT INR D-Dimer ABG pH ABG pO2 ABG HCO3 ABG O2 Saturation ABG Base Excess ABG Hemoglobin Oxyhemoglobin Sodium Potassium Chloride Carbon Dioxide BUN Creatinine Glucose POC Glucose 129 H 125 H 125 H Lactic Acid Calcium Phosphorus Magnesium AST ALT Alkaline Phosphatase Lactate Dehydrogenase Troponin T C-Reactive Protein NT-Pro-B Natriuret Pep Total Protein Albumin LDL Cholesterol Direct Vitamin B12 Urine WBC (Auto) Fluid Glucose Fluid Total Protein Vancomycin Trough Crossmatch 12/03/21 12/04/21 12/04/21 23:32 04:00 05:36 WBC RBC Hgb Hct MCV MCH MCHC RDW Plt Count Eos % (Auto) Eos # (Auto) Seg Neuts % (Manual) Lymphocytes % (Manual) Seg Neutrophils # Seg Neutrophils # Man Lymphocytes # (Manual) Monocytes # (Manual) PT INR D-Dimer ABG pH ABG pO2 ABG HCO3 ABG O2 Saturation ABG Base Excess ABG Hemoglobin Oxyhemoglobin Sodium Potassium 3.5 L Chloride Carbon Dioxide BUN 26 H Creatinine 0.5 L Glucose 151 H POC Glucose 133 H 142 H Lactic Acid Calcium 8.3 L Phosphorus Magnesium AST ALT Alkaline Phosphatase Lactate Dehydrogenase Troponin T C-Reactive Protein NT-Pro-B Natriuret Pep Total Protein Albumin LDL Cholesterol Direct Vitamin B12 Urine WBC (Auto) Fluid Glucose Fluid Total Protein Vancomycin Trough Crossmatch 12/04/21 12/04/21 12/05/21 11:24 15:58 04:36 WBC RBC Hgb Hct MCV MCH MCHC RDW Plt Count Eos % (Auto) Eos # (Auto) Seg Neuts % (Manual) Lymphocytes % (Manual) Seg Neutrophils # Seg Neutrophils # Man Lymphocytes # (Manual) Monocytes # (Manual) PT INR D-Dimer ABG pH ABG pO2 ABG HCO3 ABG O2 Saturation ABG Base Excess ABG Hemoglobin Oxyhemoglobin Sodium Potassium Chloride Carbon Dioxide BUN 21 H Creatinine 0.5 L Glucose 119 H POC Glucose 130 H 111 H Lactic Acid Calcium 8.3 L Phosphorus Magnesium AST ALT Alkaline Phosphatase Lactate Dehydrogenase Troponin T C-Reactive Protein NT-Pro-B Natriuret Pep Total Protein Albumin LDL Cholesterol Direct Vitamin B12 Urine WBC (Auto) Fluid Glucose Fluid Total Protein Vancomycin Trough Crossmatch 12/05/21 12/05/21 12/05/21 05:15 10:40 11:12 WBC RBC 2.98 L Hgb 8.1 L Hct 24.6 L MCV MCH 27 L MCHC RDW 20.8 H Plt Count Eos % (Auto) Eos # (Auto) Seg Neuts % (Manual) Lymphocytes % (Manual) Seg Neutrophils # Seg Neutrophils # Man Lymphocytes # (Manual) Monocytes # (Manual) PT INR D-Dimer ABG pH ABG pO2 ABG HCO3 ABG O2 Saturation ABG Base Excess ABG Hemoglobin Oxyhemoglobin Sodium Potassium Chloride Carbon Dioxide BUN Creatinine Glucose POC Glucose 107 H 110 H Lactic Acid Calcium Phosphorus Magnesium AST ALT Alkaline Phosphatase Lactate Dehydrogenase Troponin T C-Reactive Protein NT-Pro-B Natriuret Pep Total Protein Albumin LDL Cholesterol Direct Vitamin B12 Urine WBC (Auto) Fluid Glucose Fluid Total Protein Vancomycin Trough Crossmatch 12/05/21 12/06/21 12/06/21 23:39 04:25 04:25 WBC RBC 2.95 L Hgb 7.9 L Hct 24.7 L MCV MCH 27 L MCHC RDW 20.9 H Plt Count Eos % (Auto) Eos # (Auto) Seg Neuts % (Manual) Lymphocytes % (Manual) Seg Neutrophils # Seg Neutrophils # Man Lymphocytes # (Manual) Monocytes # (Manual) PT INR D-Dimer ABG pH ABG pO2 ABG HCO3 ABG O2 Saturation ABG Base Excess ABG Hemoglobin Oxyhemoglobin Sodium Potassium Chloride Carbon Dioxide BUN 22 H Creatinine 0.5 L Glucose 136 H POC Glucose 118 H Lactic Acid Calcium 8.2 L Phosphorus Magnesium AST ALT Alkaline Phosphatase Lactate Dehydrogenase Troponin T C-Reactive Protein NT-Pro-B Natriuret Pep Total Protein Albumin LDL Cholesterol Direct Vitamin B12 Urine WBC (Auto) Fluid Glucose Fluid Total Protein Vancomycin Trough Crossmatch 12/06/21 12/06/21 12/07/21 05:28 11:27 04:00 WBC RBC Hgb 7.2 L Hct 21.8 L MCV MCH MCHC RDW Plt Count Eos % (Auto) Eos # (Auto) Seg Neuts % (Manual) Lymphocytes % (Manual) Seg Neutrophils # Seg Neutrophils # Man Lymphocytes # (Manual) Monocytes # (Manual) PT INR D-Dimer ABG pH ABG pO2 ABG HCO3 ABG O2 Saturation ABG Base Excess ABG Hemoglobin Oxyhemoglobin Sodium Potassium Chloride Carbon Dioxide BUN Creatinine Glucose POC Glucose 142 H 126 H Lactic Acid Calcium Phosphorus Magnesium AST ALT Alkaline Phosphatase Lactate Dehydrogenase Troponin T C-Reactive Protein NT-Pro-B Natriuret Pep Total Protein Albumin LDL Cholesterol Direct Vitamin B12 Urine WBC (Auto) Fluid Glucose Fluid Total Protein Vancomycin Trough Crossmatch 12/07/21 12/07/21 12/07/21 04:00 05:30 11:12 WBC RBC Hgb Hct MCV MCH MCHC RDW Plt Count Eos % (Auto) Eos # (Auto) Seg Neuts % (Manual) Lymphocytes % (Manual) Seg Neutrophils # Seg Neutrophils # Man Lymphocytes # (Manual) Monocytes # (Manual) PT INR D-Dimer ABG pH ABG pO2 ABG HCO3 ABG O2 Saturation ABG Base Excess ABG Hemoglobin Oxyhemoglobin Sodium Potassium Chloride Carbon Dioxide BUN 22 H Creatinine Glucose 119 H POC Glucose 121 H 124 H Lactic Acid Calcium 8.0 L Phosphorus Magnesium AST ALT Alkaline Phosphatase Lactate Dehydrogenase Troponin T C-Reactive Protein NT-Pro-B Natriuret Pep Total Protein Albumin LDL Cholesterol Direct Vitamin B12 Urine WBC (Auto) Fluid Glucose Fluid Total Protein Vancomycin Trough Crossmatch 12/08/21 12/08/21 12/08/21 04:00 04:00 05:39 WBC RBC 2.81 L Hgb 7.7 L Hct 23.5 L MCV MCH MCHC RDW 21.2 H Plt Count Eos % (Auto) Eos # (Auto) Seg Neuts % (Manual) Lymphocytes % (Manual) Seg Neutrophils # Seg Neutrophils # Man Lymphocytes # (Manual) Monocytes # (Manual) PT INR D-Dimer ABG pH ABG pO2 ABG HCO3 ABG O2 Saturation ABG Base Excess ABG Hemoglobin Oxyhemoglobin Sodium 135 L Potassium Chloride Carbon Dioxide BUN 23 H Creatinine Glucose 109 H POC Glucose 112 H Lactic Acid Calcium Phosphorus Magnesium AST ALT Alkaline Phosphatase Lactate Dehydrogenase Troponin T C-Reactive Protein NT-Pro-B Natriuret Pep Total Protein Albumin LDL Cholesterol Direct Vitamin B12 Urine WBC (Auto) Fluid Glucose Fluid Total Protein Vancomycin Trough Crossmatch 12/08/21 12/09/21 12/09/21 11:03 04:20 04:20 WBC RBC 2.67 L Hgb 7.6 L Hct 22.1 L MCV MCH MCHC RDW 20.8 H Plt Count Eos % (Auto) Eos # (Auto) Seg Neuts % (Manual) Lymphocytes % (Manual) Seg Neutrophils # Seg Neutrophils # Man Lymphocytes # (Manual) Monocytes # (Manual) PT INR D-Dimer ABG pH ABG pO2 ABG HCO3 ABG O2 Saturation ABG Base Excess ABG Hemoglobin Oxyhemoglobin Sodium 135 L Potassium Chloride 97.8 L Carbon Dioxide BUN 26 H Creatinine Glucose 119 H POC Glucose 108 H Lactic Acid Calcium 7.7 L Phosphorus Magnesium AST ALT Alkaline Phosphatase Lactate Dehydrogenase Troponin T C-Reactive Protein NT-Pro-B Natriuret Pep Total Protein Albumin LDL Cholesterol Direct Vitamin B12 Urine WBC (Auto) Fluid Glucose Fluid Total Protein Vancomycin Trough Crossmatch 12/09/21 12/10/21 12/10/21 11:26 04:33 11:12 WBC RBC Hgb Hct MCV MCH MCHC RDW Plt Count Eos % (Auto) Eos # (Auto) Seg Neuts % (Manual) Lymphocytes % (Manual) Seg Neutrophils # Seg Neutrophils # Man Lymphocytes # (Manual) Monocytes # (Manual) PT INR D-Dimer ABG pH ABG pO2 ABG HCO3 ABG O2 Saturation ABG Base Excess ABG Hemoglobin Oxyhemoglobin Sodium 136 L Potassium Chloride Carbon Dioxide BUN 27 H Creatinine Glucose 117 H POC Glucose 110 H 117 H Lactic Acid Calcium 8.2 L Phosphorus Magnesium AST ALT Alkaline Phosphatase Lactate Dehydrogenase Troponin T C-Reactive Protein NT-Pro-B Natriuret Pep Total Protein Albumin LDL Cholesterol Direct Vitamin B12 Urine WBC (Auto) Fluid Glucose Fluid Total Protein Vancomycin Trough Crossmatch 12/10/21 12/10/21 12/11/21 16:02 23:31 04:35 WBC RBC 2.57 L Hgb 7.0 L Hct 21.4 L MCV MCH 27 L MCHC RDW 21.1 H Plt Count Eos % (Auto) Eos # (Auto) Seg Neuts % (Manual) Lymphocytes % (Manual) Seg Neutrophils # Seg Neutrophils # Man Lymphocytes # (Manual) Monocytes # (Manual) PT INR D-Dimer ABG pH ABG pO2 ABG HCO3 ABG O2 Saturation ABG Base Excess ABG Hemoglobin Oxyhemoglobin Sodium Potassium Chloride Carbon Dioxide BUN Creatinine Glucose POC Glucose 137 H 111 H Lactic Acid Calcium Phosphorus Magnesium AST ALT Alkaline Phosphatase Lactate Dehydrogenase Troponin T C-Reactive Protein NT-Pro-B Natriuret Pep Total Protein Albumin LDL Cholesterol Direct Vitamin B12 Urine WBC (Auto) Fluid Glucose Fluid Total Protein Vancomycin Trough Crossmatch 12/11/21 12/11/21 12/11/21 04:35 12:46 16:07 WBC RBC Hgb Hct MCV MCH MCHC RDW Plt Count Eos % (Auto) Eos # (Auto) Seg Neuts % (Manual) Lymphocytes % (Manual) Seg Neutrophils # Seg Neutrophils # Man Lymphocytes # (Manual) Monocytes # (Manual) PT INR D-Dimer ABG pH ABG pO2 ABG HCO3 ABG O2 Saturation ABG Base Excess ABG Hemoglobin Oxyhemoglobin Sodium 136 L Potassium Chloride Carbon Dioxide BUN 27 H Creatinine Glucose 112 H POC Glucose 115 H 111 H Lactic Acid Calcium 7.6 L Phosphorus Magnesium AST ALT Alkaline Phosphatase Lactate Dehydrogenase Troponin T C-Reactive Protein NT-Pro-B Natriuret Pep Total Protein Albumin LDL Cholesterol Direct Vitamin B12 Urine WBC (Auto) Fluid Glucose Fluid Total Protein Vancomycin Trough Crossmatch 12/11/21 12/12/21 12/12/21 23:42 04:30 04:30 WBC RBC 2.60 L Hgb 7.1 L Hct 21.5 L MCV MCH 27 L MCHC RDW 20.3 H Plt Count Eos % (Auto) Eos # (Auto) Seg Neuts % (Manual) Lymphocytes % (Manual) Seg Neutrophils # Seg Neutrophils # Man Lymphocytes # (Manual) Monocytes # (Manual) PT INR D-Dimer ABG pH ABG pO2 ABG HCO3 ABG O2 Saturation ABG Base Excess ABG Hemoglobin Oxyhemoglobin Sodium 135 L Potassium Chloride 97.9 L Carbon Dioxide BUN 26 H Creatinine 0.5 L Glucose 138 H POC Glucose 115 H Lactic Acid Calcium 8.2 L Phosphorus Magnesium AST ALT Alkaline Phosphatase Lactate Dehydrogenase Troponin T C-Reactive Protein NT-Pro-B Natriuret Pep Total Protein Albumin LDL Cholesterol Direct Vitamin B12 Urine WBC (Auto) Fluid Glucose Fluid Total Protein Vancomycin Trough Crossmatch 12/12/21 12/12/21 12/12/21 04:30 05:10 11:51 WBC RBC Hgb Hct MCV MCH MCHC RDW Plt Count Eos % (Auto) Eos # (Auto) Seg Neuts % (Manual) Lymphocytes % (Manual) Seg Neutrophils # Seg Neutrophils # Man Lymphocytes # (Manual) Monocytes # (Manual) PT INR D-Dimer ABG pH ABG pO2 ABG HCO3 ABG O2 Saturation ABG Base Excess ABG Hemoglobin Oxyhemoglobin Sodium Potassium Chloride Carbon Dioxide BUN Creatinine Glucose POC Glucose 119 H 119 H Lactic Acid Calcium Phosphorus Magnesium AST ALT Alkaline Phosphatase Lactate Dehydrogenase Troponin T C-Reactive Protein NT-Pro-B Natriuret Pep Total Protein Albumin LDL Cholesterol Direct Vitamin B12 Urine WBC (Auto) Fluid Glucose Fluid Total Protein Vancomycin Trough Crossmatch See Detail 12/13/21 12/13/21 12/13/21 00:52 04:00 04:00 WBC RBC 2.73 L Hgb 7.4 L Hct 22.8 L MCV MCH 27 L MCHC RDW 20.5 H Plt Count Eos % (Auto) Eos # (Auto) Seg Neuts % (Manual) Lymphocytes % (Manual) Seg Neutrophils # Seg Neutrophils # Man Lymphocytes # (Manual) Monocytes # (Manual) PT INR D-Dimer ABG pH ABG pO2 ABG HCO3 ABG O2 Saturation ABG Base Excess ABG Hemoglobin Oxyhemoglobin Sodium 134 L Potassium Chloride 96.7 L Carbon Dioxide BUN 23 H Creatinine 0.5 L Glucose 131 H POC Glucose 131 H Lactic Acid Calcium 8.1 L Phosphorus Magnesium AST ALT Alkaline Phosphatase Lactate Dehydrogenase Troponin T C-Reactive Protein NT-Pro-B Natriuret Pep Total Protein Albumin LDL Cholesterol Direct Vitamin B12 Urine WBC (Auto) Fluid Glucose Fluid Total Protein Vancomycin Trough Crossmatch 12/13/21 12/13/21 12/13/21 05:23 12:11 17:18 WBC RBC Hgb Hct MCV MCH MCHC RDW Plt Count Eos % (Auto) Eos # (Auto) Seg Neuts % (Manual) Lymphocytes % (Manual) Seg Neutrophils # Seg Neutrophils # Man Lymphocytes # (Manual) Monocytes # (Manual) PT INR D-Dimer ABG pH ABG pO2 ABG HCO3 ABG O2 Saturation ABG Base Excess ABG Hemoglobin Oxyhemoglobin Sodium Potassium Chloride Carbon Dioxide BUN Creatinine Glucose POC Glucose 121 H 143 H 148 H Lactic Acid Calcium Phosphorus Magnesium AST ALT Alkaline Phosphatase Lactate Dehydrogenase Troponin T C-Reactive Protein NT-Pro-B Natriuret Pep Total Protein Albumin LDL Cholesterol Direct Vitamin B12 Urine WBC (Auto) Fluid Glucose Fluid Total Protein Vancomycin Trough Crossmatch 12/14/21 12/14/21 12/14/21 00:54 04:20 04:20 WBC RBC 2.39 L Hgb 6.5 L Hct 20.3 L MCV MCH 27 L MCHC RDW 20.3 H Plt Count Eos % (Auto) Eos # (Auto) Seg Neuts % (Manual) Lymphocytes % (Manual) Seg Neutrophils # Seg Neutrophils # Man Lymphocytes # (Manual) Monocytes # (Manual) PT INR D-Dimer ABG pH ABG pO2 ABG HCO3 ABG O2 Saturation ABG Base Excess ABG Hemoglobin Oxyhemoglobin Sodium 130 L Potassium Chloride 93.5 L Carbon Dioxide BUN 25 H Creatinine Glucose 123 H POC Glucose 123 H Lactic Acid Calcium 8.0 L Phosphorus Magnesium AST ALT Alkaline Phosphatase Lactate Dehydrogenase Troponin T C-Reactive Protein NT-Pro-B Natriuret Pep Total Protein Albumin LDL Cholesterol Direct Vitamin B12 Urine WBC (Auto) Fluid Glucose Fluid Total Protein Vancomycin Trough Crossmatch 12/14/21 12/14/21 12/14/21 05:06 08:17 10:30 WBC RBC Hgb Hct MCV MCH MCHC RDW Plt Count Eos % (Auto) Eos # (Auto) Seg Neuts % (Manual) Lymphocytes % (Manual) Seg Neutrophils # Seg Neutrophils # Man Lymphocytes # (Manual) Monocytes # (Manual) PT INR D-Dimer ABG pH ABG pO2 ABG HCO3 ABG O2 Saturation ABG Base Excess ABG Hemoglobin Oxyhemoglobin Sodium Potassium Chloride Carbon Dioxide BUN Creatinine Glucose POC Glucose 131 H 119 H Lactic Acid Calcium Phosphorus Magnesium AST ALT Alkaline Phosphatase Lactate Dehydrogenase Troponin T C-Reactive Protein NT-Pro-B Natriuret Pep Total Protein Albumin LDL Cholesterol Direct Vitamin B12 Urine WBC (Auto) Fluid Glucose Fluid Total Protein Vancomycin Trough Crossmatch See Detail 12/14/21 12/14/21 12/14/21 12:15 16:37 23:27 WBC RBC Hgb Hct MCV MCH MCHC RDW Plt Count Eos % (Auto) Eos # (Auto) Seg Neuts % (Manual) Lymphocytes % (Manual) Seg Neutrophils # Seg Neutrophils # Man Lymphocytes # (Manual) Monocytes # (Manual) PT INR D-Dimer ABG pH ABG pO2 ABG HCO3 ABG O2 Saturation ABG Base Excess ABG Hemoglobin Oxyhemoglobin Sodium Potassium Chloride Carbon Dioxide BUN Creatinine Glucose POC Glucose 147 H 141 H 130 H Lactic Acid Calcium Phosphorus Magnesium AST ALT Alkaline Phosphatase Lactate Dehydrogenase Troponin T C-Reactive Protein NT-Pro-B Natriuret Pep Total Protein Albumin LDL Cholesterol Direct Vitamin B12 Urine WBC (Auto) Fluid Glucose Fluid Total Protein Vancomycin Trough Crossmatch 12/15/21 12/15/21 12/15/21 05:00 07:00 07:00 WBC 12.3 H RBC 3.27 L Hgb 8.8 L Hct 27.5 L D MCV MCH 27 L MCHC RDW 19.0 H Plt Count Eos % (Auto) Eos # (Auto) Seg Neuts % (Manual) Lymphocytes % (Manual) Seg Neutrophils # Seg Neutrophils # Man Lymphocytes # (Manual) Monocytes # (Manual) PT INR D-Dimer ABG pH ABG pO2 ABG HCO3 ABG O2 Saturation ABG Base Excess ABG Hemoglobin Oxyhemoglobin Sodium 134 L Potassium Chloride 95.7 L Carbon Dioxide BUN 28 H Creatinine Glucose 129 H POC Glucose 129 H Lactic Acid Calcium 8.2 L Phosphorus Magnesium AST ALT Alkaline Phosphatase Lactate Dehydrogenase Troponin T C-Reactive Protein NT-Pro-B Natriuret Pep Total Protein Albumin LDL Cholesterol Direct Vitamin B12 Urine WBC (Auto) Fluid Glucose Fluid Total Protein Vancomycin Trough Crossmatch 12/15/21 12/15/21 12/15/21 11:18 16:00 23:39 WBC RBC Hgb Hct MCV MCH MCHC RDW Plt Count Eos % (Auto) Eos # (Auto) Seg Neuts % (Manual) Lymphocytes % (Manual) Seg Neutrophils # Seg Neutrophils # Man Lymphocytes # (Manual) Monocytes # (Manual) PT INR D-Dimer ABG pH ABG pO2 ABG HCO3 ABG O2 Saturation ABG Base Excess ABG Hemoglobin Oxyhemoglobin Sodium Potassium Chloride Carbon Dioxide BUN Creatinine Glucose POC Glucose 139 H 137 H 146 H Lactic Acid Calcium Phosphorus Magnesium AST ALT Alkaline Phosphatase Lactate Dehydrogenase Troponin T C-Reactive Protein NT-Pro-B Natriuret Pep Total Protein Albumin LDL Cholesterol Direct Vitamin B12 Urine WBC (Auto) Fluid Glucose Fluid Total Protein Vancomycin Trough Crossmatch 12/16/21 12/16/21 12/16/21 05:24 10:21 10:21 WBC 15.3 H RBC 3.24 L Hgb 8.9 L Hct 27.7 L MCV MCH MCHC RDW 19.0 H Plt Count Eos % (Auto) Eos # (Auto) Seg Neuts % (Manual) Lymphocytes % (Manual) Seg Neutrophils # Seg Neutrophils # Man Lymphocytes # (Manual) Monocytes # (Manual) PT INR D-Dimer ABG pH ABG pO2 ABG HCO3 ABG O2 Saturation ABG Base Excess ABG Hemoglobin Oxyhemoglobin Sodium 131 L Potassium 3.5 L Chloride 92.7 L Carbon Dioxide BUN 36 H Creatinine Glucose 160 H POC Glucose 121 H Lactic Acid Calcium Phosphorus Magnesium 1.60 L AST ALT Alkaline Phosphatase Lactate Dehydrogenase Troponin T C-Reactive Protein NT-Pro-B Natriuret Pep Total Protein Albumin LDL Cholesterol Direct Vitamin B12 Urine WBC (Auto) Fluid Glucose Fluid Total Protein Vancomycin Trough Crossmatch 12/16/21 12/16/21 12/16/21 11:21 18:28 20:52 WBC RBC Hgb Hct MCV MCH MCHC RDW Plt Count Eos % (Auto) Eos # (Auto) Seg Neuts % (Manual) Lymphocytes % (Manual) Seg Neutrophils # Seg Neutrophils # Man Lymphocytes # (Manual) Monocytes # (Manual) PT INR D-Dimer ABG pH 7.479 H ABG pO2 79.3 L ABG HCO3 27.3 H ABG O2 Saturation ABG Base Excess 3.6 H ABG Hemoglobin 9.1 L Oxyhemoglobin 94.9 L Sodium Potassium Chloride Carbon Dioxide BUN Creatinine Glucose POC Glucose 153 H 132 H Lactic Acid Calcium Phosphorus Magnesium AST ALT Alkaline Phosphatase Lactate Dehydrogenase Troponin T C-Reactive Protein NT-Pro-B Natriuret Pep Total Protein Albumin LDL Cholesterol Direct Vitamin B12 Urine WBC (Auto) Fluid Glucose Fluid Total Protein Vancomycin Trough Crossmatch 12/16/21 12/17/21 12/17/21 23:30 04:25 04:25 WBC 12.3 H RBC 2.16 L Hgb 6.0 L Hct 18.1 L* D MCV MCH MCHC RDW 19.4 H Plt Count Eos % (Auto) Eos # (Auto) Seg Neuts % (Manual) Lymphocytes % (Manual) Seg Neutrophils # Seg Neutrophils # Man Lymphocytes # (Manual) Monocytes # (Manual) PT INR D-Dimer ABG pH ABG pO2 ABG HCO3 ABG O2 Saturation ABG Base Excess ABG Hemoglobin Oxyhemoglobin Sodium 132 L Potassium 3.2 L Chloride 112.0 H Carbon Dioxide BUN 32 H Creatinine Glucose 122 H POC Glucose 137 H Lactic Acid Calcium 6.8 L D Phosphorus Magnesium AST ALT Alkaline Phosphatase Lactate Dehydrogenase Troponin T C-Reactive Protein NT-Pro-B Natriuret Pep Total Protein Albumin LDL Cholesterol Direct Vitamin B12 Urine WBC (Auto) Fluid Glucose Fluid Total Protein Vancomycin Trough Crossmatch 12/17/21 12/17/21 12/17/21 05:30 11:49 14:45 WBC RBC Hgb 9.7 L D Hct MCV MCH MCHC RDW Plt Count Eos % (Auto) Eos # (Auto) Seg Neuts % (Manual) Lymphocytes % (Manual) Seg Neutrophils # Seg Neutrophils # Man Lymphocytes # (Manual) Monocytes # (Manual) PT INR D-Dimer ABG pH ABG pO2 ABG HCO3 ABG O2 Saturation ABG Base Excess ABG Hemoglobin Oxyhemoglobin Sodium Potassium Chloride Carbon Dioxide BUN Creatinine Glucose POC Glucose 137 H 143 H Lactic Acid Calcium Phosphorus Magnesium AST ALT Alkaline Phosphatase Lactate Dehydrogenase Troponin T C-Reactive Protein NT-Pro-B Natriuret Pep Total Protein Albumin LDL Cholesterol Direct Vitamin B12 Urine WBC (Auto) Fluid Glucose Fluid Total Protein Vancomycin Trough Crossmatch 12/17/21 12/18/21 12/18/21 17:01 05:04 05:04 WBC 13.8 H RBC 3.44 L Hgb 9.9 L Hct 28.8 L MCV MCH MCHC RDW 18.1 H Plt Count Eos % (Auto) Eos # (Auto) Seg Neuts % (Manual) Lymphocytes % (Manual) Seg Neutrophils # Seg Neutrophils # Man Lymphocytes # (Manual) Monocytes # (Manual) PT INR D-Dimer ABG pH ABG pO2 ABG HCO3 ABG O2 Saturation ABG Base Excess ABG Hemoglobin Oxyhemoglobin Sodium 132 L Potassium Chloride 97.4 L Carbon Dioxide BUN 38 H Creatinine Glucose 134 H POC Glucose 132 H Lactic Acid Calcium Phosphorus Magnesium AST ALT Alkaline Phosphatase Lactate Dehydrogenase Troponin T C-Reactive Protein NT-Pro-B Natriuret Pep Total Protein Albumin LDL Cholesterol Direct Vitamin B12 Urine WBC (Auto) Fluid Glucose Fluid Total Protein Vancomycin Trough Crossmatch 12/18/21 12/18/21 12/18/21 05:28 10:57 16:27 WBC RBC Hgb Hct MCV MCH MCHC RDW Plt Count Eos % (Auto) Eos # (Auto) Seg Neuts % (Manual) Lymphocytes % (Manual) Seg Neutrophils # Seg Neutrophils # Man Lymphocytes # (Manual) Monocytes # (Manual) PT INR D-Dimer ABG pH ABG pO2 ABG HCO3 ABG O2 Saturation ABG Base Excess ABG Hemoglobin Oxyhemoglobin Sodium Potassium Chloride Carbon Dioxide BUN Creatinine Glucose POC Glucose 118 H 132 H 130 H Lactic Acid Calcium Phosphorus Magnesium AST ALT Alkaline Phosphatase Lactate Dehydrogenase Troponin T C-Reactive Protein NT-Pro-B Natriuret Pep Total Protein Albumin LDL Cholesterol Direct Vitamin B12 Urine WBC (Auto) Fluid Glucose Fluid Total Protein Vancomycin Trough Crossmatch 12/19/21 12/19/21 12/19/21 00:02 04:41 04:41 WBC 16.0 H RBC 3.45 L Hgb 9.7 L Hct 29.1 L MCV MCH MCHC RDW 17.8 H Plt Count Eos % (Auto) Eos # (Auto) Seg Neuts % (Manual) Lymphocytes % (Manual) Seg Neutrophils # Seg Neutrophils # Man Lymphocytes # (Manual) Monocytes # (Manual) PT INR D-Dimer ABG pH ABG pO2 ABG HCO3 ABG O2 Saturation ABG Base Excess ABG Hemoglobin Oxyhemoglobin Sodium 133 L Potassium Chloride 97.9 L Carbon Dioxide BUN 36 H Creatinine 0.5 L Glucose 126 H POC Glucose 127 H Lactic Acid Calcium 8.3 L Phosphorus Magnesium AST ALT Alkaline Phosphatase Lactate Dehydrogenase Troponin T C-Reactive Protein NT-Pro-B Natriuret Pep Total Protein Albumin LDL Cholesterol Direct Vitamin B12 Urine WBC (Auto) Fluid Glucose Fluid Total Protein Vancomycin Trough Crossmatch 12/19/21 12/19/21 12/19/21 05:26 12:20 16:43 WBC RBC Hgb Hct MCV MCH MCHC RDW Plt Count Eos % (Auto) Eos # (Auto) Seg Neuts % (Manual) Lymphocytes % (Manual) Seg Neutrophils # Seg Neutrophils # Man Lymphocytes # (Manual) Monocytes # (Manual) PT INR D-Dimer ABG pH ABG pO2 ABG HCO3 ABG O2 Saturation ABG Base Excess ABG Hemoglobin Oxyhemoglobin Sodium Potassium Chloride Carbon Dioxide BUN Creatinine Glucose POC Glucose 119 H 145 H 126 H Lactic Acid Calcium Phosphorus Magnesium AST ALT Alkaline Phosphatase Lactate Dehydrogenase Troponin T C-Reactive Protein NT-Pro-B Natriuret Pep Total Protein Albumin LDL Cholesterol Direct Vitamin B12 Urine WBC (Auto) Fluid Glucose Fluid Total Protein Vancomycin Trough Crossmatch 12/19/21 12/20/21 12/20/21 23:30 04:54 04:54 WBC 12.3 H RBC 3.54 L Hgb 10.0 L Hct 29.5 L MCV MCH MCHC RDW 17.8 H Plt Count Eos % (Auto) Eos # (Auto) Seg Neuts % (Manual) 88.0 H Lymphocytes % (Manual) 6.0 L Seg Neutrophils # Seg Neutrophils # Man 10.8 H Lymphocytes # (Manual) 0.7 L Monocytes # (Manual) PT INR D-Dimer ABG pH ABG pO2 ABG HCO3 ABG O2 Saturation ABG Base Excess ABG Hemoglobin Oxyhemoglobin Sodium 131 L Potassium Chloride 96.2 L Carbon Dioxide BUN 36 H Creatinine 0.5 L Glucose 130 H POC Glucose 117 H Lactic Acid Calcium Phosphorus Magnesium AST ALT Alkaline Phosphatase Lactate Dehydrogenase Troponin T C-Reactive Protein NT-Pro-B Natriuret Pep Total Protein Albumin LDL Cholesterol Direct Vitamin B12 Urine WBC (Auto) Fluid Glucose Fluid Total Protein Vancomycin Trough Crossmatch 12/20/21 12/20/21 12/20/21 05:20 11:51 17:30 WBC RBC Hgb Hct MCV MCH MCHC RDW Plt Count Eos % (Auto) Eos # (Auto) Seg Neuts % (Manual) Lymphocytes % (Manual) Seg Neutrophils # Seg Neutrophils # Man Lymphocytes # (Manual) Monocytes # (Manual) PT INR D-Dimer ABG pH ABG pO2 ABG HCO3 ABG O2 Saturation ABG Base Excess ABG Hemoglobin Oxyhemoglobin Sodium Potassium Chloride Carbon Dioxide BUN Creatinine Glucose POC Glucose 126 H 119 H 127 H Lactic Acid Calcium Phosphorus Magnesium AST ALT Alkaline Phosphatase Lactate Dehydrogenase Troponin T C-Reactive Protein NT-Pro-B Natriuret Pep Total Protein Albumin LDL Cholesterol Direct Vitamin B12 Urine WBC (Auto) Fluid Glucose Fluid Total Protein Vancomycin Trough Crossmatch 12/21/21 12/21/21 12/21/21 00:45 04:21 04:21 WBC RBC 3.47 L Hgb 9.4 L Hct 29.2 L MCV MCH 27 L MCHC RDW 18.1 H Plt Count Eos % (Auto) Eos # (Auto) Seg Neuts % (Manual) Lymphocytes % (Manual) Seg Neutrophils # Seg Neutrophils # Man Lymphocytes # (Manual) Monocytes # (Manual) PT INR D-Dimer ABG pH ABG pO2 ABG HCO3 ABG O2 Saturation ABG Base Excess ABG Hemoglobin Oxyhemoglobin Sodium 134 L Potassium Chloride Carbon Dioxide BUN 35 H Creatinine 0.5 L Glucose 122 H POC Glucose 125 H Lactic Acid Calcium 8.2 L Phosphorus Magnesium AST ALT Alkaline Phosphatase Lactate Dehydrogenase Troponin T C-Reactive Protein NT-Pro-B Natriuret Pep Total Protein Albumin LDL Cholesterol Direct Vitamin B12 Urine WBC (Auto) Fluid Glucose Fluid Total Protein Vancomycin Trough Crossmatch 12/21/21 12/21/21 12/21/21 05:38 11:29 16:16 WBC RBC Hgb Hct MCV MCH MCHC RDW Plt Count Eos % (Auto) Eos # (Auto) Seg Neuts % (Manual) Lymphocytes % (Manual) Seg Neutrophils # Seg Neutrophils # Man Lymphocytes # (Manual) Monocytes # (Manual) PT INR D-Dimer ABG pH ABG pO2 ABG HCO3 ABG O2 Saturation ABG Base Excess ABG Hemoglobin Oxyhemoglobin Sodium Potassium Chloride Carbon Dioxide BUN Creatinine Glucose POC Glucose 127 H 121 H 113 H Lactic Acid Calcium Phosphorus Magnesium AST ALT Alkaline Phosphatase Lactate Dehydrogenase Troponin T C-Reactive Protein NT-Pro-B Natriuret Pep Total Protein Albumin LDL Cholesterol Direct Vitamin B12 Urine WBC (Auto) Fluid Glucose Fluid Total Protein Vancomycin Trough Crossmatch 12/22/21 12/22/21 12/23/21 04:58 04:58 06:40 WBC 11.5 H RBC 3.43 L Hgb 9.8 L Hct 28.7 L MCV MCH MCHC RDW 18.5 H 17.9 H Plt Count Eos % (Auto) Eos # (Auto) Seg Neuts % (Manual) Lymphocytes % (Manual) Seg Neutrophils # Seg Neutrophils # Man Lymphocytes # (Manual) Monocytes # (Manual) PT INR D-Dimer ABG pH ABG pO2 ABG HCO3 ABG O2 Saturation ABG Base Excess ABG Hemoglobin Oxyhemoglobin Sodium 130 L Potassium Chloride 97.8 L Carbon Dioxide BUN 31 H Creatinine 0.5 L Glucose 122 H POC Glucose Lactic Acid Calcium 7.9 L Phosphorus Magnesium AST ALT Alkaline Phosphatase Lactate Dehydrogenase Troponin T C-Reactive Protein NT-Pro-B Natriuret Pep Total Protein Albumin LDL Cholesterol Direct Vitamin B12 Urine WBC (Auto) Fluid Glucose Fluid Total Protein Vancomycin Trough Crossmatch 12/23/21 12/23/21 12/24/21 06:40 23:25 04:24 WBC 11.7 H RBC Hgb 9.8 L Hct MCV MCH 26 L MCHC RDW 18.1 H Plt Count Eos % (Auto) Eos # (Auto) Seg Neuts % (Manual) Lymphocytes % (Manual) Seg Neutrophils # Seg Neutrophils # Man Lymphocytes # (Manual) Monocytes # (Manual) PT INR D-Dimer ABG pH ABG pO2 ABG HCO3 ABG O2 Saturation ABG Base Excess ABG Hemoglobin Oxyhemoglobin Sodium 136 L Potassium Chloride Carbon Dioxide BUN 27 H Creatinine 0.4 L Glucose 107 H POC Glucose 110 H Lactic Acid Calcium 8.1 L Phosphorus Magnesium AST ALT Alkaline Phosphatase Lactate Dehydrogenase Troponin T C-Reactive Protein NT-Pro-B Natriuret Pep Total Protein Albumin LDL Cholesterol Direct Vitamin B12 Urine WBC (Auto) Fluid Glucose Fluid Total Protein Vancomycin Trough Crossmatch 12/24/21 12/24/21 12/24/21 04:24 11:08 15:45 WBC RBC Hgb Hct MCV MCH MCHC RDW Plt Count Eos % (Auto) Eos # (Auto) Seg Neuts % (Manual) Lymphocytes % (Manual) Seg Neutrophils # Seg Neutrophils # Man Lymphocytes # (Manual) Monocytes # (Manual) PT INR D-Dimer ABG pH ABG pO2 ABG HCO3 ABG O2 Saturation ABG Base Excess ABG Hemoglobin Oxyhemoglobin Sodium 132 L Potassium Chloride Carbon Dioxide BUN 27 H Creatinine 0.3 L Glucose 108 H POC Glucose 116 H 107 H Lactic Acid Calcium Phosphorus Magnesium AST ALT Alkaline Phosphatase Lactate Dehydrogenase Troponin T C-Reactive Protein NT-Pro-B Natriuret Pep Total Protein Albumin LDL Cholesterol Direct Vitamin B12 Urine WBC (Auto) Fluid Glucose Fluid Total Protein Vancomycin Trough Crossmatch 12/24/21 12/25/21 12/25/21 23:43 05:29 11:48 WBC RBC Hgb Hct MCV MCH MCHC RDW Plt Count Eos % (Auto) Eos # (Auto) Seg Neuts % (Manual) Lymphocytes % (Manual) Seg Neutrophils # Seg Neutrophils # Man Lymphocytes # (Manual) Monocytes # (Manual) PT INR D-Dimer ABG pH ABG pO2 ABG HCO3 ABG O2 Saturation ABG Base Excess ABG Hemoglobin Oxyhemoglobin Sodium Potassium Chloride Carbon Dioxide BUN Creatinine Glucose POC Glucose 123 H 107 H 119 H Lactic Acid Calcium Phosphorus Magnesium AST ALT Alkaline Phosphatase Lactate Dehydrogenase Troponin T C-Reactive Protein NT-Pro-B Natriuret Pep Total Protein Albumin LDL Cholesterol Direct Vitamin B12 Urine WBC (Auto) Fluid Glucose Fluid Total Protein Vancomycin Trough Crossmatch 12/26/21 12/26/21 12/26/21 00:06 05:56 07:51 WBC 11.4 H RBC 3.40 L Hgb 9.3 L Hct 28.3 L MCV MCH 27 L MCHC RDW 18.2 H Plt Count Eos % (Auto) Eos # (Auto) Seg Neuts % (Manual) Lymphocytes % (Manual) Seg Neutrophils # Seg Neutrophils # Man Lymphocytes # (Manual) Monocytes # (Manual) PT INR D-Dimer ABG pH ABG pO2 ABG HCO3 ABG O2 Saturation ABG Base Excess ABG Hemoglobin Oxyhemoglobin Sodium Potassium Chloride Carbon Dioxide BUN Creatinine Glucose POC Glucose 133 H 107 H Lactic Acid Calcium Phosphorus Magnesium AST ALT Alkaline Phosphatase Lactate Dehydrogenase Troponin T C-Reactive Protein NT-Pro-B Natriuret Pep Total Protein Albumin LDL Cholesterol Direct Vitamin B12 Urine WBC (Auto) Fluid Glucose Fluid Total Protein Vancomycin Trough Crossmatch 12/26/21 12/26/21 12/26/21 07:51 11:43 17:06 WBC RBC Hgb Hct MCV MCH MCHC RDW Plt Count Eos % (Auto) Eos # (Auto) Seg Neuts % (Manual) Lymphocytes % (Manual) Seg Neutrophils # Seg Neutrophils # Man Lymphocytes # (Manual) Monocytes # (Manual) PT INR D-Dimer ABG pH ABG pO2 ABG HCO3 ABG O2 Saturation ABG Base Excess ABG Hemoglobin Oxyhemoglobin Sodium 136 L Potassium Chloride Carbon Dioxide BUN 25 H Creatinine 0.3 L Glucose 131 H POC Glucose 119 H 128 H Lactic Acid Calcium Phosphorus Magnesium AST ALT Alkaline Phosphatase Lactate Dehydrogenase Troponin T C-Reactive Protein NT-Pro-B Natriuret Pep Total Protein Albumin LDL Cholesterol Direct Vitamin B12 Urine WBC (Auto) Fluid Glucose Fluid Total Protein Vancomycin Trough Crossmatch 12/28/21 12/28/21 12/29/21 09:05 09:05 04:40 WBC RBC 3.19 L Hgb 8.9 L Hct 26.4 L MCV MCH 27 L MCHC RDW 18.4 H 17.9 H Plt Count Eos % (Auto) Eos # (Auto) Seg Neuts % (Manual) Lymphocytes % (Manual) Seg Neutrophils # Seg Neutrophils # Man Lymphocytes # (Manual) Monocytes # (Manual) PT INR D-Dimer ABG pH ABG pO2 ABG HCO3 ABG O2 Saturation ABG Base Excess ABG Hemoglobin Oxyhemoglobin Sodium 135 L Potassium Chloride 97.8 L Carbon Dioxide BUN 18 H Creatinine 0.3 L Glucose POC Glucose Lactic Acid Calcium Phosphorus Magnesium AST ALT Alkaline Phosphatase Lactate Dehydrogenase Troponin T C-Reactive Protein NT-Pro-B Natriuret Pep Total Protein Albumin LDL Cholesterol Direct Vitamin B12 Urine WBC (Auto) Fluid Glucose Fluid Total Protein Vancomycin Trough Crossmatch 12/29/21 12/29/21 12/30/21 04:40 12:47 04:05 WBC RBC 3.29 L Hgb 8.7 L Hct 27.6 L MCV MCH 27 L MCHC RDW 17.6 H Plt Count Eos % (Auto) Eos # (Auto) Seg Neuts % (Manual) Lymphocytes % (Manual) Seg Neutrophils # Seg Neutrophils # Man Lymphocytes # (Manual) Monocytes # (Manual) PT INR D-Dimer ABG pH ABG pO2 ABG HCO3 ABG O2 Saturation ABG Base Excess ABG Hemoglobin Oxyhemoglobin Sodium 136 L Potassium Chloride Carbon Dioxide BUN Creatinine 0.3 L Glucose POC Glucose 67 L Lactic Acid Calcium 8.3 L Phosphorus Magnesium AST ALT Alkaline Phosphatase Lactate Dehydrogenase Troponin T C-Reactive Protein NT-Pro-B Natriuret Pep Total Protein Albumin LDL Cholesterol Direct Vitamin B12 Urine WBC (Auto) Fluid Glucose Fluid Total Protein Vancomycin Trough Crossmatch 12/30/21 12/31/21 12/31/21 04:05 00:07 04:00 WBC RBC 3.05 L Hgb 8.5 L Hct 25.5 L MCV MCH MCHC RDW 18.2 H Plt Count Eos % (Auto) Eos # (Auto) Seg Neuts % (Manual) Lymphocytes % (Manual) Seg Neutrophils # Seg Neutrophils # Man Lymphocytes # (Manual) Monocytes # (Manual) PT INR D-Dimer ABG pH ABG pO2 ABG HCO3 ABG O2 Saturation ABG Base Excess ABG Hemoglobin Oxyhemoglobin Sodium 136 L Potassium 3.5 L Chloride Carbon Dioxide BUN Creatinine 0.4 L Glucose POC Glucose 139 H Lactic Acid Calcium Phosphorus Magnesium 1.50 L AST ALT Alkaline Phosphatase Lactate Dehydrogenase Troponin T C-Reactive Protein NT-Pro-B Natriuret Pep Total Protein Albumin LDL Cholesterol Direct Vitamin B12 Urine WBC (Auto) Fluid Glucose Fluid Total Protein Vancomycin Trough Crossmatch 12/31/21 12/31/21 12/31/21 04:00 04:52 11:23 WBC RBC Hgb Hct MCV MCH MCHC RDW Plt Count Eos % (Auto) Eos # (Auto) Seg Neuts % (Manual) Lymphocytes % (Manual) Seg Neutrophils # Seg Neutrophils # Man Lymphocytes # (Manual) Monocytes # (Manual) PT INR D-Dimer ABG pH ABG pO2 ABG HCO3 ABG O2 Saturation ABG Base Excess ABG Hemoglobin Oxyhemoglobin Sodium Potassium Chloride Carbon Dioxide BUN 19 H Creatinine 0.4 L Glucose 116 H POC Glucose 121 H 116 H Lactic Acid Calcium Phosphorus Magnesium AST ALT Alkaline Phosphatase Lactate Dehydrogenase Troponin T C-Reactive Protein NT-Pro-B Natriuret Pep Total Protein Albumin LDL Cholesterol Direct Vitamin B12 Urine WBC (Auto) Fluid Glucose Fluid Total Protein Vancomycin Trough Crossmatch 12/31/21 01/01/22 01/01/22 17:42 04:31 04:31 WBC RBC 2.83 L Hgb 7.7 L Hct 23.2 L MCV MCH 27 L MCHC RDW 18.3 H Plt Count Eos % (Auto) Eos # (Auto) Seg Neuts % (Manual) Lymphocytes % (Manual) Seg Neutrophils # Seg Neutrophils # Man Lymphocytes # (Manual) Monocytes # (Manual) PT INR D-Dimer ABG pH ABG pO2 ABG HCO3 ABG O2 Saturation ABG Base Excess ABG Hemoglobin Oxyhemoglobin Sodium 135 L Potassium Chloride 97.7 L Carbon Dioxide BUN 21 H Creatinine 0.5 L Glucose 127 H POC Glucose 107 H Lactic Acid Calcium 8.0 L Phosphorus Magnesium AST ALT Alkaline Phosphatase Lactate Dehydrogenase Troponin T C-Reactive Protein NT-Pro-B Natriuret Pep Total Protein Albumin LDL Cholesterol Direct Vitamin B12 Urine WBC (Auto) Fluid Glucose Fluid Total Protein Vancomycin Trough Crossmatch 01/01/22 01/01/22 01/01/22 05:24 11:25 18:11 WBC RBC Hgb Hct MCV MCH MCHC RDW Plt Count Eos % (Auto) Eos # (Auto) Seg Neuts % (Manual) Lymphocytes % (Manual) Seg Neutrophils # Seg Neutrophils # Man Lymphocytes # (Manual) Monocytes # (Manual) PT INR D-Dimer ABG pH ABG pO2 ABG HCO3 ABG O2 Saturation ABG Base Excess ABG Hemoglobin Oxyhemoglobin Sodium Potassium Chloride Carbon Dioxide BUN Creatinine Glucose POC Glucose 124 H 140 H 144 H Lactic Acid Calcium Phosphorus Magnesium AST ALT Alkaline Phosphatase Lactate Dehydrogenase Troponin T C-Reactive Protein NT-Pro-B Natriuret Pep Total Protein Albumin LDL Cholesterol Direct Vitamin B12 Urine WBC (Auto) Fluid Glucose Fluid Total Protein Vancomycin Trough Crossmatch 01/01/22 01/02/22 01/02/22 23:26 04:01 04:01 WBC RBC 2.57 L Hgb 7.1 L Hct 21.5 L MCV MCH MCHC RDW 18.1 H Plt Count Eos % (Auto) Eos # (Auto) Seg Neuts % (Manual) Lymphocytes % (Manual) Seg Neutrophils # Seg Neutrophils # Man Lymphocytes # (Manual) Monocytes # (Manual) PT INR D-Dimer ABG pH ABG pO2 ABG HCO3 ABG O2 Saturation ABG Base Excess ABG Hemoglobin Oxyhemoglobin Sodium 131 L Potassium 3.5 L Chloride 94.8 L Carbon Dioxide BUN 27 H Creatinine Glucose 121 H POC Glucose 121 H Lactic Acid Calcium Phosphorus Magnesium AST ALT Alkaline Phosphatase Lactate Dehydrogenase Troponin T C-Reactive Protein NT-Pro-B Natriuret Pep Total Protein Albumin LDL Cholesterol Direct Vitamin B12 Urine WBC (Auto) Fluid Glucose Fluid Total Protein Vancomycin Trough Crossmatch 01/02/22 01/02/22 01/02/22 05:30 11:10 16:08 WBC RBC Hgb Hct MCV MCH MCHC RDW Plt Count Eos % (Auto) Eos # (Auto) Seg Neuts % (Manual) Lymphocytes % (Manual) Seg Neutrophils # Seg Neutrophils # Man Lymphocytes # (Manual) Monocytes # (Manual) PT INR D-Dimer ABG pH ABG pO2 ABG HCO3 ABG O2 Saturation ABG Base Excess ABG Hemoglobin Oxyhemoglobin Sodium Potassium Chloride Carbon Dioxide BUN Creatinine Glucose POC Glucose 124 H 117 H 130 H Lactic Acid Calcium Phosphorus Magnesium AST ALT Alkaline Phosphatase Lactate Dehydrogenase Troponin T C-Reactive Protein NT-Pro-B Natriuret Pep Total Protein Albumin LDL Cholesterol Direct Vitamin B12 Urine WBC (Auto) Fluid Glucose Fluid Total Protein Vancomycin Trough Crossmatch 01/02/22 01/02/22 01/03/22 17:30 23:26 04:53 WBC RBC 2.82 L Hgb 7.7 L Hct 23.4 L MCV MCH 27 L MCHC RDW 18.0 H Plt Count Eos % (Auto) Eos # (Auto) Seg Neuts % (Manual) Lymphocytes % (Manual) Seg Neutrophils # Seg Neutrophils # Man Lymphocytes # (Manual) Monocytes # (Manual) PT INR D-Dimer ABG pH ABG pO2 ABG HCO3 ABG O2 Saturation ABG Base Excess ABG Hemoglobin Oxyhemoglobin Sodium Potassium Chloride Carbon Dioxide BUN Creatinine Glucose POC Glucose 114 H Lactic Acid Calcium Phosphorus Magnesium AST ALT Alkaline Phosphatase Lactate Dehydrogenase Troponin T C-Reactive Protein NT-Pro-B Natriuret Pep Total Protein Albumin LDL Cholesterol Direct Vitamin B12 Urine WBC (Auto) Fluid Glucose Fluid Total Protein Vancomycin Trough 22.8 H Crossmatch 01/03/22 01/03/22 01/03/22 04:53 06:23 17:35 WBC RBC Hgb Hct MCV MCH MCHC RDW Plt Count Eos % (Auto) Eos # (Auto) Seg Neuts % (Manual) Lymphocytes % (Manual) Seg Neutrophils # Seg Neutrophils # Man Lymphocytes # (Manual) Monocytes # (Manual) PT INR D-Dimer ABG pH ABG pO2 ABG HCO3 ABG O2 Saturation ABG Base Excess ABG Hemoglobin Oxyhemoglobin Sodium 133 L Potassium Chloride 96.2 L Carbon Dioxide BUN 30 H Creatinine Glucose 107 H POC Glucose 122 H 107 H Lactic Acid Calcium Phosphorus Magnesium AST ALT Alkaline Phosphatase Lactate Dehydrogenase Troponin T C-Reactive Protein NT-Pro-B Natriuret Pep Total Protein Albumin LDL Cholesterol Direct Vitamin B12 Urine WBC (Auto) Fluid Glucose Fluid Total Protein Vancomycin Trough Crossmatch 01/04/22 01/04/22 01/04/22 04:00 12:32 16:45 WBC RBC Hgb Hct MCV MCH MCHC RDW Plt Count Eos % (Auto) Eos # (Auto) Seg Neuts % (Manual) Lymphocytes % (Manual) Seg Neutrophils # Seg Neutrophils # Man Lymphocytes # (Manual) Monocytes # (Manual) PT INR D-Dimer ABG pH ABG pO2 ABG HCO3 ABG O2 Saturation ABG Base Excess ABG Hemoglobin Oxyhemoglobin Sodium 132 L Potassium Chloride 92.8 L Carbon Dioxide BUN 30 H Creatinine Glucose 115 H POC Glucose 111 H 111 H Lactic Acid Calcium Phosphorus Magnesium 1.60 L AST ALT Alkaline Phosphatase Lactate Dehydrogenase Troponin T C-Reactive Protein NT-Pro-B Natriuret Pep Total Protein Albumin LDL Cholesterol Direct Vitamin B12 Urine WBC (Auto) Fluid Glucose Fluid Total Protein Vancomycin Trough Crossmatch 01/05/22 01/05/22 01/05/22 04:30 04:30 17:04 WBC RBC 3.11 L Hgb 8.4 L Hct 25.5 L MCV MCH 27 L MCHC RDW 17.6 H Plt Count Eos % (Auto) Eos # (Auto) Seg Neuts % (Manual) Lymphocytes % (Manual) Seg Neutrophils # Seg Neutrophils # Man Lymphocytes # (Manual) Monocytes # (Manual) PT INR D-Dimer ABG pH ABG pO2 ABG HCO3 ABG O2 Saturation ABG Base Excess ABG Hemoglobin Oxyhemoglobin Sodium 135 L Potassium Chloride 93.6 L Carbon Dioxide BUN 29 H Creatinine Glucose POC Glucose 67 L Lactic Acid Calcium Phosphorus Magnesium AST ALT Alkaline Phosphatase Lactate Dehydrogenase Troponin T C-Reactive Protein NT-Pro-B Natriuret Pep Total Protein Albumin LDL Cholesterol Direct Vitamin B12 Urine WBC (Auto) Fluid Glucose Fluid Total Protein Vancomycin Trough Crossmatch 01/05/22 01/06/22 01/06/22 23:27 04:06 04:06 WBC RBC 2.89 L Hgb 7.7 L Hct 23.8 L MCV MCH 27 L MCHC RDW 18.0 H Plt Count Eos % (Auto) Eos # (Auto) Seg Neuts % (Manual) Lymphocytes % (Manual) Seg Neutrophils # Seg Neutrophils # Man Lymphocytes # (Manual) Monocytes # (Manual) PT 16.9 H INR 1.23 H D-Dimer ABG pH ABG pO2 ABG HCO3 ABG O2 Saturation ABG Base Excess ABG Hemoglobin Oxyhemoglobin Sodium Potassium Chloride Carbon Dioxide BUN Creatinine Glucose POC Glucose 110 H Lactic Acid Calcium Phosphorus Magnesium AST ALT Alkaline Phosphatase Lactate Dehydrogenase Troponin T C-Reactive Protein NT-Pro-B Natriuret Pep Total Protein Albumin LDL Cholesterol Direct Vitamin B12 Urine WBC (Auto) Fluid Glucose Fluid Total Protein Vancomycin Trough Crossmatch 01/06/22 01/06/22 01/06/22 04:06 13:40 23:41 WBC RBC Hgb Hct MCV MCH MCHC RDW Plt Count Eos % (Auto) Eos # (Auto) Seg Neuts % (Manual) Lymphocytes % (Manual) Seg Neutrophils # Seg Neutrophils # Man Lymphocytes # (Manual) Monocytes # (Manual) PT INR D-Dimer ABG pH ABG pO2 ABG HCO3 ABG O2 Saturation ABG Base Excess ABG Hemoglobin Oxyhemoglobin Sodium 132 L Potassium Chloride 92.3 L Carbon Dioxide BUN 26 H Creatinine Glucose 111 H POC Glucose 120 H Lactic Acid Calcium Phosphorus Magnesium AST ALT Alkaline Phosphatase Lactate Dehydrogenase Troponin T C-Reactive Protein NT-Pro-B Natriuret Pep Total Protein Albumin LDL Cholesterol Direct Vitamin B12 Urine WBC (Auto) Fluid Glucose 96 H Fluid Total Protein < 3.0 L Vancomycin Trough Crossmatch 01/07/22 01/07/22 01/07/22 05:20 11:30 17:00 WBC RBC Hgb Hct MCV MCH MCHC RDW Plt Count Eos % (Auto) Eos # (Auto) Seg Neuts % (Manual) Lymphocytes % (Manual) Seg Neutrophils # Seg Neutrophils # Man Lymphocytes # (Manual) Monocytes # (Manual) PT INR D-Dimer ABG pH ABG pO2 ABG HCO3 ABG O2 Saturation ABG Base Excess ABG Hemoglobin Oxyhemoglobin Sodium Potassium Chloride Carbon Dioxide BUN Creatinine Glucose POC Glucose 111 H 113 H 121 H Lactic Acid Calcium Phosphorus Magnesium AST ALT Alkaline Phosphatase Lactate Dehydrogenase Troponin T C-Reactive Protein NT-Pro-B Natriuret Pep Total Protein Albumin LDL Cholesterol Direct Vitamin B12 Urine WBC (Auto) Fluid Glucose Fluid Total Protein Vancomycin Trough Crossmatch 01/07/22 01/08/22 01/08/22 23:41 11:26 16:23 WBC RBC Hgb Hct MCV MCH MCHC RDW Plt Count Eos % (Auto) Eos # (Auto) Seg Neuts % (Manual) Lymphocytes % (Manual) Seg Neutrophils # Seg Neutrophils # Man Lymphocytes # (Manual) Monocytes # (Manual) PT INR D-Dimer ABG pH ABG pO2 ABG HCO3 ABG O2 Saturation ABG Base Excess ABG Hemoglobin Oxyhemoglobin Sodium Potassium Chloride Carbon Dioxide BUN Creatinine Glucose POC Glucose 110 H 129 H 118 H Lactic Acid Calcium Phosphorus Magnesium AST ALT Alkaline Phosphatase Lactate Dehydrogenase Troponin T C-Reactive Protein NT-Pro-B Natriuret Pep Total Protein Albumin LDL Cholesterol Direct Vitamin B12 Urine WBC (Auto) Fluid Glucose Fluid Total Protein Vancomycin Trough Crossmatch 01/09/22 01/10/22 01/10/22 18:13 00:27 04:00 WBC RBC Hgb Hct MCV MCH MCHC RDW Plt Count Eos % (Auto) Eos # (Auto) Seg Neuts % (Manual) Lymphocytes % (Manual) Seg Neutrophils # Seg Neutrophils # Man Lymphocytes # (Manual) Monocytes # (Manual) PT INR D-Dimer ABG pH ABG pO2 ABG HCO3 ABG O2 Saturation ABG Base Excess ABG Hemoglobin Oxyhemoglobin Sodium 133 L Potassium Chloride 92.6 L Carbon Dioxide 31 H BUN 29 H Creatinine 0.5 L Glucose 115 H POC Glucose 118 H 111 H Lactic Acid Calcium Phosphorus Magnesium AST ALT Alkaline Phosphatase Lactate Dehydrogenase Troponin T C-Reactive Protein NT-Pro-B Natriuret Pep Total Protein Albumin LDL Cholesterol Direct Vitamin B12 Urine WBC (Auto) Fluid Glucose Fluid Total Protein Vancomycin Trough Crossmatch 01/10/22 01/11/22 01/11/22 05:47 05:10 11:14 WBC RBC Hgb Hct MCV MCH MCHC RDW Plt Count Eos % (Auto) Eos # (Auto) Seg Neuts % (Manual) Lymphocytes % (Manual) Seg Neutrophils # Seg Neutrophils # Man Lymphocytes # (Manual) Monocytes # (Manual) PT INR D-Dimer ABG pH ABG pO2 ABG HCO3 ABG O2 Saturation ABG Base Excess ABG Hemoglobin Oxyhemoglobin Sodium Potassium Chloride Carbon Dioxide BUN Creatinine Glucose POC Glucose 106 H 118 H 136 H Lactic Acid Calcium Phosphorus Magnesium AST ALT Alkaline Phosphatase Lactate Dehydrogenase Troponin T C-Reactive Protein NT-Pro-B Natriuret Pep Total Protein Albumin LDL Cholesterol Direct Vitamin B12 Urine WBC (Auto) Fluid Glucose Fluid Total Protein Vancomycin Trough Crossmatch 01/11/22 01/11/22 01/12/22 17:14 23:52 05:39 WBC RBC Hgb Hct MCV MCH MCHC RDW Plt Count Eos % (Auto) Eos # (Auto) Seg Neuts % (Manual) Lymphocytes % (Manual) Seg Neutrophils # Seg Neutrophils # Man Lymphocytes # (Manual) Monocytes # (Manual) PT INR D-Dimer ABG pH ABG pO2 ABG HCO3 ABG O2 Saturation ABG Base Excess ABG Hemoglobin Oxyhemoglobin Sodium Potassium Chloride Carbon Dioxide BUN Creatinine Glucose POC Glucose 117 H 110 H 110 H Lactic Acid Calcium Phosphorus Magnesium AST ALT Alkaline Phosphatase Lactate Dehydrogenase Troponin T C-Reactive Protein NT-Pro-B Natriuret Pep Total Protein Albumin LDL Cholesterol Direct Vitamin B12 Urine WBC (Auto) Fluid Glucose Fluid Total Protein Vancomycin Trough Crossmatch 01/13/22 01/13/22 01/14/22 11:15 17:21 05:33 WBC RBC Hgb Hct MCV MCH MCHC RDW Plt Count Eos % (Auto) Eos # (Auto) Seg Neuts % (Manual) Lymphocytes % (Manual) Seg Neutrophils # Seg Neutrophils # Man Lymphocytes # (Manual) Monocytes # (Manual) PT INR D-Dimer ABG pH ABG pO2 ABG HCO3 ABG O2 Saturation ABG Base Excess ABG Hemoglobin Oxyhemoglobin Sodium Potassium Chloride Carbon Dioxide BUN Creatinine Glucose POC Glucose 113 H 121 H 136 H Lactic Acid Calcium Phosphorus Magnesium AST ALT Alkaline Phosphatase Lactate Dehydrogenase Troponin T C-Reactive Protein NT-Pro-B Natriuret Pep Total Protein Albumin LDL Cholesterol Direct Vitamin B12 Urine WBC (Auto) Fluid Glucose Fluid Total Protein Vancomycin Trough Crossmatch 01/14/22 01/15/22 01/15/22 11:28 00:13 05:24 WBC RBC Hgb Hct MCV MCH MCHC RDW Plt Count Eos % (Auto) Eos # (Auto) Seg Neuts % (Manual) Lymphocytes % (Manual) Seg Neutrophils # Seg Neutrophils # Man Lymphocytes # (Manual) Monocytes # (Manual) PT INR D-Dimer ABG pH ABG pO2 ABG HCO3 ABG O2 Saturation ABG Base Excess ABG Hemoglobin Oxyhemoglobin Sodium Potassium Chloride Carbon Dioxide BUN Creatinine Glucose POC Glucose 117 H 109 H 117 H Lactic Acid Calcium Phosphorus Magnesium AST ALT Alkaline Phosphatase Lactate Dehydrogenase Troponin T C-Reactive Protein NT-Pro-B Natriuret Pep Total Protein Albumin LDL Cholesterol Direct Vitamin B12 Urine WBC (Auto) Fluid Glucose Fluid Total Protein Vancomycin Trough Crossmatch 01/15/22 01/15/22 01/15/22 11:38 14:36 17:05 WBC RBC 3.11 L Hgb 8.4 L Hct 25.7 L MCV MCH 27 L MCHC RDW 17.2 H Plt Count Eos % (Auto) Eos # (Auto) Seg Neuts % (Manual) 82.0 H Lymphocytes % (Manual) 11.0 L Seg Neutrophils # Seg Neutrophils # Man 8.8 H Lymphocytes # (Manual) Monocytes # (Manual) PT INR D-Dimer ABG pH ABG pO2 ABG HCO3 ABG O2 Saturation ABG Base Excess ABG Hemoglobin Oxyhemoglobin Sodium Potassium Chloride Carbon Dioxide BUN Creatinine Glucose POC Glucose 107 H 108 H Lactic Acid Calcium Phosphorus Magnesium AST ALT Alkaline Phosphatase Lactate Dehydrogenase Troponin T C-Reactive Protein NT-Pro-B Natriuret Pep Total Protein Albumin LDL Cholesterol Direct Vitamin B12 Urine WBC (Auto) Fluid Glucose Fluid Total Protein Vancomycin Trough Crossmatch 01/15/22 01/15/22 01/15/22 21:07 Unknown Unknown WBC RBC 2.97 L Hgb 8.0 L Hct 24.3 L MCV MCH 27 L MCHC RDW 17.2 H Plt Count Eos % (Auto) Eos # (Auto) Seg Neuts % (Manual) Lymphocytes % (Manual) Seg Neutrophils # Seg Neutrophils # Man Lymphocytes # (Manual) Monocytes # (Manual) PT INR D-Dimer ABG pH ABG pO2 ABG HCO3 ABG O2 Saturation ABG Base Excess ABG Hemoglobin Oxyhemoglobin Sodium 131 L Potassium Chloride 93.1 L Carbon Dioxide BUN 27 H Creatinine Glucose 110 H POC Glucose Lactic Acid Calcium 8.3 L Phosphorus Magnesium AST ALT Alkaline Phosphatase Lactate Dehydrogenase Troponin T 0.088 H C-Reactive Protein NT-Pro-B Natriuret Pep Total Protein Albumin LDL Cholesterol Direct 44 L Vitamin B12 Urine WBC (Auto) Fluid Glucose Fluid Total Protein Vancomycin Trough Crossmatch 01/15/22 01/16/22 01/16/22 Unknown 05:21 12:59 WBC RBC Hgb Hct MCV MCH MCHC RDW Plt Count Eos % (Auto) Eos # (Auto) Seg Neuts % (Manual) Lymphocytes % (Manual) Seg Neutrophils # Seg Neutrophils # Man Lymphocytes # (Manual) Monocytes # (Manual) PT INR D-Dimer ABG pH ABG pO2 ABG HCO3 ABG O2 Saturation ABG Base Excess ABG Hemoglobin Oxyhemoglobin Sodium 134 L 134 L Potassium 3.4 L Chloride 93.9 L 95.4 L Carbon Dioxide BUN 26 H 24 H Creatinine Glucose 168 H POC Glucose 159 H Lactic Acid Calcium 8.1 L Phosphorus Magnesium AST ALT Alkaline Phosphatase Lactate Dehydrogenase Troponin T 0.078 H C-Reactive Protein NT-Pro-B Natriuret Pep Total Protein Albumin LDL Cholesterol Direct Vitamin B12 Urine WBC (Auto) Fluid Glucose Fluid Total Protein Vancomycin Trough Crossmatch 01/16/22 01/17/22 01/17/22 23:22 05:20 14:24 WBC RBC Hgb Hct MCV MCH MCHC RDW Plt Count Eos % (Auto) Eos # (Auto) Seg Neuts % (Manual) Lymphocytes % (Manual) Seg Neutrophils # Seg Neutrophils # Man Lymphocytes # (Manual) Monocytes # (Manual) PT INR D-Dimer ABG pH ABG pO2 55.0 L ABG HCO3 29.5 H ABG O2 Saturation 87.8 L ABG Base Excess 4.5 H ABG Hemoglobin 9.3 L Oxyhemoglobin 86.1 L Sodium Potassium Chloride Carbon Dioxide BUN Creatinine Glucose POC Glucose 113 H 111 H Lactic Acid Calcium Phosphorus Magnesium AST ALT Alkaline Phosphatase Lactate Dehydrogenase Troponin T C-Reactive Protein NT-Pro-B Natriuret Pep Total Protein Albumin LDL Cholesterol Direct Vitamin B12 Urine WBC (Auto) Fluid Glucose Fluid Total Protein Vancomycin Trough Crossmatch 01/17/22 01/18/22 01/18/22 17:14 05:39 11:53 WBC RBC Hgb Hct MCV MCH MCHC RDW Plt Count Eos % (Auto) Eos # (Auto) Seg Neuts % (Manual) Lymphocytes % (Manual) Seg Neutrophils # Seg Neutrophils # Man Lymphocytes # (Manual) Monocytes # (Manual) PT INR D-Dimer ABG pH ABG pO2 ABG HCO3 ABG O2 Saturation ABG Base Excess ABG Hemoglobin Oxyhemoglobin Sodium Potassium Chloride Carbon Dioxide BUN Creatinine Glucose POC Glucose 126 H 108 H 113 H Lactic Acid Calcium Phosphorus Magnesium AST ALT Alkaline Phosphatase Lactate Dehydrogenase Troponin T C-Reactive Protein NT-Pro-B Natriuret Pep Total Protein Albumin LDL Cholesterol Direct Vitamin B12 Urine WBC (Auto) Fluid Glucose Fluid Total Protein Vancomycin Trough Crossmatch 01/18/22 01/19/22 01/19/22 12:50 00:04 04:50 WBC RBC 3.14 L Hgb 8.4 L Hct 26.0 L MCV MCH 27 L MCHC RDW 18.2 H Plt Count Eos % (Auto) Eos # (Auto) Seg Neuts % (Manual) Lymphocytes % (Manual) Seg Neutrophils # Seg Neutrophils # Man Lymphocytes # (Manual) Monocytes # (Manual) PT INR D-Dimer ABG pH ABG pO2 112.3 H ABG HCO3 30.9 H ABG O2 Saturation ABG Base Excess 5.8 H ABG Hemoglobin 8.8 L Oxyhemoglobin Sodium Potassium Chloride Carbon Dioxide BUN Creatinine Glucose POC Glucose 115 H Lactic Acid Calcium Phosphorus Magnesium AST ALT Alkaline Phosphatase Lactate Dehydrogenase Troponin T C-Reactive Protein NT-Pro-B Natriuret Pep Total Protein Albumin LDL Cholesterol Direct Vitamin B12 Urine WBC (Auto) Fluid Glucose Fluid Total Protein Vancomycin Trough Crossmatch 01/19/22 01/19/22 01/19/22 04:50 11:51 20:45 WBC RBC Hgb Hct MCV MCH MCHC RDW Plt Count Eos % (Auto) Eos # (Auto) Seg Neuts % (Manual) Lymphocytes % (Manual) Seg Neutrophils # Seg Neutrophils # Man Lymphocytes # (Manual) Monocytes # (Manual) PT INR D-Dimer ABG pH ABG pO2 95.2 H ABG HCO3 29.8 H ABG O2 Saturation ABG Base Excess 4.3 H ABG Hemoglobin 8.0 L Oxyhemoglobin Sodium 134 L Potassium Chloride 95.4 L Carbon Dioxide BUN 28 H Creatinine Glucose POC Glucose 111 H Lactic Acid Calcium Phosphorus Magnesium AST ALT Alkaline Phosphatase Lactate Dehydrogenase Troponin T C-Reactive Protein NT-Pro-B Natriuret Pep Total Protein Albumin LDL Cholesterol Direct Vitamin B12 Urine WBC (Auto) Fluid Glucose Fluid Total Protein Vancomycin Trough Crossmatch 01/20/22 01/21/22 01/22/22 11:43 23:32 11:12 WBC RBC Hgb Hct MCV MCH MCHC RDW Plt Count Eos % (Auto) Eos # (Auto) Seg Neuts % (Manual) Lymphocytes % (Manual) Seg Neutrophils # Seg Neutrophils # Man Lymphocytes # (Manual) Monocytes # (Manual) PT INR D-Dimer ABG pH ABG pO2 ABG HCO3 ABG O2 Saturation ABG Base Excess ABG Hemoglobin Oxyhemoglobin Sodium Potassium Chloride Carbon Dioxide BUN Creatinine Glucose POC Glucose 118 H 113 H 110 H Lactic Acid Calcium Phosphorus Magnesium AST ALT Alkaline Phosphatase Lactate Dehydrogenase Troponin T C-Reactive Protein NT-Pro-B Natriuret Pep Total Protein Albumin LDL Cholesterol Direct Vitamin B12 Urine WBC (Auto) Fluid Glucose Fluid Total Protein Vancomycin Trough Crossmatch 01/22/22 01/23/22 01/23/22 17:54 09:36 11:49 WBC RBC Hgb Hct MCV MCH MCHC RDW Plt Count Eos % (Auto) Eos # (Auto) Seg Neuts % (Manual) Lymphocytes % (Manual) Seg Neutrophils # Seg Neutrophils # Man Lymphocytes # (Manual) Monocytes # (Manual) PT INR D-Dimer ABG pH ABG pO2 ABG HCO3 ABG O2 Saturation ABG Base Excess ABG Hemoglobin Oxyhemoglobin Sodium Potassium Chloride Carbon Dioxide BUN Creatinine Glucose POC Glucose 115 H 194 H Lactic Acid Calcium Phosphorus Magnesium AST ALT Alkaline Phosphatase Lactate Dehydrogenase Troponin T C-Reactive Protein NT-Pro-B Natriuret Pep Total Protein Albumin LDL Cholesterol Direct Vitamin B12 Urine WBC (Auto) 16.0 H Fluid Glucose Fluid Total Protein Vancomycin Trough Crossmatch 01/23/22 01/24/22 01/24/22 11:50 05:37 11:56 WBC RBC Hgb Hct MCV MCH MCHC RDW Plt Count Eos % (Auto) Eos # (Auto) Seg Neuts % (Manual) Lymphocytes % (Manual) Seg Neutrophils # Seg Neutrophils # Man Lymphocytes # (Manual) Monocytes # (Manual) PT INR D-Dimer ABG pH 7.310 L ABG pO2 43.9 L ABG HCO3 28.0 H ABG O2 Saturation 70.8 L ABG Base Excess ABG Hemoglobin 9.3 L Oxyhemoglobin 69.2 L Sodium Potassium Chloride Carbon Dioxide BUN Creatinine Glucose POC Glucose 118 H 119 H Lactic Acid Calcium Phosphorus Magnesium AST ALT Alkaline Phosphatase Lactate Dehydrogenase Troponin T C-Reactive Protein NT-Pro-B Natriuret Pep Total Protein Albumin LDL Cholesterol Direct Vitamin B12 Urine WBC (Auto) Fluid Glucose Fluid Total Protein Vancomycin Trough Crossmatch 01/25/22 01/25/22 01/26/22 12:20 13:17 05:59 WBC RBC Hgb Hct MCV MCH MCHC RDW Plt Count Eos % (Auto) Eos # (Auto) Seg Neuts % (Manual) Lymphocytes % (Manual) Seg Neutrophils # Seg Neutrophils # Man Lymphocytes # (Manual) Monocytes # (Manual) PT INR D-Dimer ABG pH 7.488 H ABG pO2 58.9 L ABG HCO3 28.3 H ABG O2 Saturation 94.9 L ABG Base Excess 4.7 H ABG Hemoglobin 8.7 L Oxyhemoglobin 92.7 L Sodium Potassium Chloride Carbon Dioxide BUN Creatinine Glucose POC Glucose 126 H 130 H Lactic Acid Calcium Phosphorus Magnesium AST ALT Alkaline Phosphatase Lactate Dehydrogenase Troponin T C-Reactive Protein NT-Pro-B Natriuret Pep Total Protein Albumin LDL Cholesterol Direct Vitamin B12 Urine WBC (Auto) Fluid Glucose Fluid Total Protein Vancomycin Trough Crossmatch 01/26/22 01/26/22 01/26/22 10:16 10:16 11:49 WBC 12.7 H RBC Hgb 9.9 L Hct MCV MCH 27 L MCHC RDW 18.3 H Plt Count Eos % (Auto) 4.5 H Eos # (Auto) 0.6 H Seg Neuts % (Manual) Lymphocytes % (Manual) Seg Neutrophils # 8.2 H Seg Neutrophils # Man Lymphocytes # (Manual) Monocytes # (Manual) PT INR D-Dimer ABG pH ABG pO2 ABG HCO3 ABG O2 Saturation ABG Base Excess ABG Hemoglobin Oxyhemoglobin Sodium Potassium Chloride 96.6 L Carbon Dioxide BUN 29 H Creatinine Glucose 140 H POC Glucose 161 H Lactic Acid Calcium Phosphorus Magnesium AST ALT Alkaline Phosphatase Lactate Dehydrogenase Troponin T C-Reactive Protein NT-Pro-B Natriuret Pep Total Protein Albumin LDL Cholesterol Direct Vitamin B12 Urine WBC (Auto) Fluid Glucose Fluid Total Protein Vancomycin Trough Crossmatch 01/27/22 01/27/22 01/27/22 00:22 12:48 23:08 WBC RBC Hgb Hct MCV MCH MCHC RDW Plt Count Eos % (Auto) Eos # (Auto) Seg Neuts % (Manual) Lymphocytes % (Manual) Seg Neutrophils # Seg Neutrophils # Man Lymphocytes # (Manual) Monocytes # (Manual) PT INR D-Dimer ABG pH ABG pO2 ABG HCO3 ABG O2 Saturation ABG Base Excess ABG Hemoglobin Oxyhemoglobin Sodium Potassium Chloride Carbon Dioxide BUN Creatinine Glucose POC Glucose 107 H 131 H 109 H Lactic Acid Calcium Phosphorus Magnesium AST ALT Alkaline Phosphatase Lactate Dehydrogenase Troponin T C-Reactive Protein NT-Pro-B Natriuret Pep Total Protein Albumin LDL Cholesterol Direct Vitamin B12 Urine WBC (Auto) Fluid Glucose Fluid Total Protein Vancomycin Trough Crossmatch 01/29/22 01/29/22 04:40 05:52 WBC RBC Hgb Hct MCV MCH MCHC RDW Plt Count Eos % (Auto) Eos # (Auto) Seg Neuts % (Manual) Lymphocytes % (Manual) Seg Neutrophils # Seg Neutrophils # Man Lymphocytes # (Manual) Monocytes # (Manual) PT INR D-Dimer ABG pH ABG pO2 ABG HCO3 ABG O2 Saturation ABG Base Excess ABG Hemoglobin Oxyhemoglobin Sodium Potassium Chloride 95.9 L Carbon Dioxide BUN 36 H Creatinine Glucose 127 H POC Glucose 108 H Lactic Acid Calcium Phosphorus Magnesium AST ALT Alkaline Phosphatase Lactate Dehydrogenase Troponin T C-Reactive Protein NT-Pro-B Natriuret Pep Total Protein Albumin LDL Cholesterol Direct Vitamin B12 Urine WBC (Auto) Fluid Glucose Fluid Total Protein Vancomycin Trough Crossmatch Allied health notes reviewed: nursing
[2022-01-29] MEDS: HYDROcodone/ACETAMINOPHEN 10-325MG TAB FEEDTUBE SCH ×3 (08:58→20:29)
[2022-01-29] MEDS: MIDODRINE 5 MG TAB FEEDTUBE SCH ×3 (08:58→15:43)
[2022-01-29] MEDS: QUEtiapine 25 MG TAB FEEDTUBE SCH ×2 (10:07→21:41)
[2022-01-29] MEDS: SPIRONOLACTONE 25 MG TAB FEEDTUBE SCH (10:07)
[2022-01-29] MEDS: busPIRone 5 MG TAB FEEDTUBE SCH ×2 (10:07→21:40)
[2022-01-29] MEDS: SULFAMETHOXAZOLE/TRIMETHOPRIM 200-40 MG/5 ML ORAL LIQD 30 ML PO SCH (10:07)
[2022-01-29] MEDS: BUMETANIDE 1 MG/4 ML INJ IV SCH (10:07)
[2022-01-29] MEDS: METOPROLOL TARTRATE 25 MG TAB FEEDTUBE SCH ×2 (10:08→21:41)
[2022-01-29] MEDS: LANSOPRAZOLE 30 MG SOLUTAB FEEDTUBE SCH ×2 (10:08→21:41)
[2022-01-29] MEDS: DOCUSATE SODIUM 100 MG/10 ML ORAL LIQD FEEDTUBE SCH ×2 (10:09→21:40)
[2022-01-29] MEDS: SENNOSIDES ORAL LIQD 8.8 MG/5 ML ORAL LIQD FEEDTUBE SCH ×2 (10:09→21:41)
[2022-01-29] MEDS: POLYETHYLENE GLYCOL 3350 17 GM POWDER FEEDTUBE SCH (10:09)
[2022-01-29] MEDS: GABAPENTIN 500 MG/10 ML ORAL LIQD FEEDTUBE SCH (10:13)
--- NOTE | 2022-01-29 11:18 | Progress Note ---
Assessment and Plan Assessment and plan: This is an 82-year-old female with DM, HTN , CHB s/p PPM, CAD s/p PCI and arthritis who presented to the emergency department on 11/04 for shortness of breath ongoing for the past 3 days, cough and according to family a fever of 102.2. Upon arrival of EMS patient was found to be tachypneic and hypoxic with SPO2 of 76% on room air which later improved to 88% on nonrebreather. Work-up in the emergency department included a CXR which showed bilateral interstitial pulmonary edema with bilateral pleural effusions and bibasilar opacities, leukocytosis and anemia with a hemoglobin of 6.1. Patient was admitted to the hospitalist service with acute anemia, acute hypoxic respiratory failure, bilateral pneumonia and COVID-19 PUI with consults to pulmonology, infectious disease and later cardiology. Patient was eventually intubated in the emergency department on 11/06. Hospital Course to date: 11/04/2021: Empiric therapy with iv levaquin/vancomycin. COVID PCR pending. Will consult ID. PCCM consulted, will follow recs. Hypotensive this AM, ordered bolus and fluids at 150 cc/hr. May require pressor support if bp does not improve. 11/05/2021: GBS on bcx +, currently on rocephin IV. Currently on bipap due to respiratory distress overnight. Worsening BL opacities on CXR. May be volume overload vs pneumonia. Unfortunately bp too low for lasix at this point. WIll continue levophed and bipap. Once able to tolerate, may do trial of albumin/lasix. Call attempt made to Niraj, no response. Will try again tomorrow to update. 11/06/2021: Decompensated overnight requiring intubation. CXR shows worsening interstitial infiltrates. Currenlty on dopamine, levophed, vasopressin. PICC line ordered. Advised RN to place gamble for I/O monitoring. Would benefit from diuresis but very volume overloaded. Prognosis guarded 11/08: Off sedation this am, remains unresponsive only grimace to pain. Hold all sedatives agents for now, patient is off pressors this am. Hypernatremia from today's lab- D5W X1bag, and low K repleted, repeat lab in the am. Severe constipation also noted from KUB, BR added. 11/09: Sudden SPO2 drop in the 60s this am. Patient was manually bagged and deep suctioned. Patient is currently stable on the vent, repeat CXR with no significant change. D/w CCM Mucomyst and brochodilator added. Patient mentation is unchanged, continue to hold off on sedative agents. Neurology consulted. 11/10: Acute DVT noted on bilateral lower extremity Doppler ultrasound therefore she was started on Lovenox treatment dose. Failed SBT. Hypernatremia and hyperchloremia noted, free water flush adjusted. 11/11: Patient noted to be febrile with increasing of the cytosis, UA/BC sent and CXR ordered. ID escalated antibiotics to cefepime. CXR demonstrated mucous plug, bedside bronchoscopy was performed and O ETT was changed over bougie from 6 cm to 7.5. Patient was noted to have a pneumothorax postprocedure and chest tube was placed. Family updated by [facility]. Free water flush increased and will add Jaswant supplementation. 11/12: Patient not noted to follow commands, hypernatremia worsen/persist, increasing free water flush, potassium and magnesium and phosphorus repleted. Hemoglobin noted to be 7./24.5 from 7.03/12 yesterday. We will continue to trend and monitor. Vent changes per [facility]. Repeat CXR showed no residual pneumothorax. Consider waterseal tomorrow. Given persistent leukocytosis antibiotics escalated to cefepime per ID. 11/13: Remains on cefepime and vancomycin, vent changes per [facility]. Anemia noted and given 1 unit PRBC. And beta-charleen held in setting of Levophed drip infusing. Remains on fentanyl drip. 11/14: Patient put on CPAP trial by [facility], will continue chest tube until after extubation. Will rest on assist control. CT brain was cancelled by supervisor grading and reordered. 11/15: Patient removed chest tube overnight. Will obtain cxr. remains on low dose levo. CTH completed with no acute findings. RT to place on CPAP. 11/16: Hypernatremia/hyperchloremia noted on the increase of day water flushes. Anemia noted and ordered PRBC. asked RT to place on cpap but not done yet 11/17: Patient remains on the vent, awake and following commands. H&H stable s/p 2units PRBCs. GI on consult, no intervention at this time. Will continue protonix gtt and serial H&H Q6hrs. Keep patient NPO for now, D5w added for hypernatremia and NPO status. Plan for IVC filter placement today by Vascular. 11/18: Patient is s/p IVC filter. H&H continue to trend down, hbg 6.1 this am, 1 unit of PRBCs ordered. Plan for possible EGD today by GI. Keep patient NPO, continue PPI drip and serial H&H Q6hrs. Electrolytes repleted, repeat lab in the am 11/19: S/p EGD- larger duodenal ulcer noted, see operative note. GI recommendations noted also noted. H&H stable this am. Keep patient on protonix gtt for now. Will keep patient NPO, continue IVF and serial H&H for now. Electrolytes repleted, repeat labs in the am 11/20: Very agitated and restless this am, fentanyl gtt resumed. Patient remains on protonix gtt, H&H remains stable. Will switch protonix gtt to IV BID, continue carafate and okay to resume meds at this time. Will F/u with GI to see if TF can be resumed. Gamble was reinserted overnight for retention. Electrolytes repleted, repeat in the am. Plan for possible PST today for possible extubation per CCM. 11/21: Patient is now on seroquel and patient's home buspar resumed. Patient more calm this morning, fentanyl gtt is off. H&H remains stable and patient is tolerating TF. Patient had a runs of Vtach/PVCs this am, BB added per Cardio. Continue daily PS and wean trial for possible extubation. 11/22: Back on fentanyl gtt overnight , RASS o to -1, following commands. Patient failed PST this am due to increased work of breathing and low SPO2, ABG pending. Patient is also with worsen pitting edema, lasix is still on hold. Will discuss with cardio and CCM to possibly resume lasix. 11/23: [facility] overnight. Patient failed PST again this am. Per CCM plan for possible trach and PEG, hold off on IV lasix for now. General surgery consulted and family is aware of possible Trach and PEG. 11/24: Trach/PEG pending this week, continue SBT/SAT as tolerated. No acute events reported overnight. 11/25: Patient was n.p.o. overnight and will remain n.p.o. tonight for trach/PEG tomorrow morning. She failed to support trial again. KUB obtained due to distended belly. 11/26: Patient scheduled for tracheostomy and PEG tube placement today, has been n.p.o. since midnight. No acute events reported overnight. [facility] ordered simethicone scheduled. 11/27: No acute events reported overnight, patient received trach/PEG yesterday. Has been on feedings since last night. Still awaiting LTAC placement. 11/28: Patient magnesium repleted, repeat a.m. labs, SBT 11/29: Patient complains of chest pain but ECG obtained which showed no acute findings, ordered troponin. Patient failed CPAP yesterday and was trialed again today. levophed was restarted but will aggressively wean 11/30: Patient failed SBT. Continue supportive care. Started gabapentin today 12/01: [facility] DEL [facility] overnight. Continue daily PST. Case management to arrange possible placement 12/02: Report of dark stools overnight, patient is hemodynamically stable. H&H stable, patient is on PPI. Will continue to trend H&H. Continue daily PST as tolerated. Awaiting LTAC vs SNF placement. 12/03: Hypotensive overnight, requiring low dose pressors. S/p X3 days of gentle diurese. Will continue to monitor, wean off pressors as tolerated for MAP of 65. Patient Failed PST yesterday, case management to follow up with insurance for possible LTAC placement. Continue daily PST as tolerated. PT eval and treat ordered. 12/04: Increased agitation and anxiety overnight, remains on buspar and seroquel, trazadone added to promote rest. Patient is now working with PT, keep patient engage and awake during the day so she can rest at night. No BM for over 5 days, BR was adjusted. Patient did not tolerate PST again yesterday, continue daily PST as tolerated. Continue to titrate pressor for MAP above 65. Pending possible LTAC placement, case management to arrange. 12/05: Still not getting much rest overnight, will add melatonin for sleep. Continue to engage patient during the day and promote rest at night. TF was held due to concern for possible bleeding, H&H remains stable and stools normal this am. Resume TF and continue PPI and carafate. Remains on low dose levophed, titrate as tolerated. Continue daily PST. Possible LTAC placement, awaiting approval. 12/06: [facility] overnight. Patient rested overnight. Continue supportive measures. Daily PST as tolerated. Awaiting possible LTAC placement 12/07: [facility] overnight. Plan for Tpiece trial today. Continue current supportive measures. Possible LTAC placement 12/08: Patient placed on pressure support trial again today, started on Xanax, no acute events reported overnight. Awaiting insurance approval for LTAC. 12/09: Levophed discontinued, LTAC transfer denied, started on midodrine and Lasix, ultrasound chest pending, started on Xanax 0.[address] De León updated family at bedside today. Started on Dilaudid every 3 hours as needed. 12/10: Patient placed on CPAP trial this morning, no acute events reported overnight. Will order ultrasound-guided thoracentesis. 12/11: Patient had a thoracentesis today, will decrease Xanax dosage and continue midodrine and diuresing. Patient failed CPAP today. 12/12: Patient not tolerate CPAP trials today, no acute events reported overnight 12/13: No acute events overnight. continue PSV trials as tolerated. Daughter upd ated at bedside 12/14: Patient noted to be anemic today, ordered gastric occult. Patient seems to be oversedated therefore Xanax changed to as needed and fentanyl patch discontinued. We will continue to monitor hyponatremia. 12/15: [facility] DEL CARMEN overnight. s/p 1unit of PRBCs, H&H stable this am, no signs of any active bleeding. Continue daily PST as tolerated. Awaiting placement. 12/16: Hypertensive this am, Midodrine decreased. Continue daily PST. [facility] overnight 12/17: Patient Hgb dropped to 6 this am, no s/s of any active bleeding, VSS. Patient received 1unit of PRBC, will continue to trend H&H. Patient was pancultured and back on IV Abx due to persistent fevers yesterday. ID is also back on the case. Continue IV Abx per ID and f/u on cultures data for sensitivity. Patient also failed PST yesterday, continue daily PST as tolerated. Electrolytes repleted, repeat labs in the am. 12/18: Patient blood cultures is growing GPC 4 out 4 bottles. PICC line D/Rivas, patient is already on IV Abx-cefepine and Vanc and ID is following. Patient remains hemodynamically stable. Daily PST as tolerated adn PRN Benzo for anxiety. 12/19: [facility] DEL CARMEN overnight. Culture data noted, continue IV Abx per ID. Orders placed for repeat Bculture. Gamble D/C overnight, patient is voiding. Check bladder scan as needed for retention. Patient failed PST again today. Continue daily PST as tolerated. 12/20: Fevers improved, Cultures +MRSA, on Vanco per ID. Repeat 2D Echo to r/o endocarditis. Patient continue to fail PST, PEEP increased to 8 today. Continue pulmonary hygiene and vent wean per CCM. Sodium tab added for hyponatremia. 12/22: Patient on pressure support trial for approximately 4 hours today, midodrine dosage increased due to hypotension. Lasix discontinued. 12/23: Started on a.m. Seroquel dose, midodrine increased to 10 mg 3 times daily, 500 mL normal saline bolus. 12/24: Seroquel dose changed (25 every morning, 75 nightly). updated at bedside by Dr. De León. CPAP trials as tolerated. Continue vancomycin. Awaiting placement. 12/25: Continue CPAP as tolerated, added gasx for distention. Continue supportive care 12/26: Patient failed PSV this AM. no acute events overnight. 12/27: GI re-consulted due to abdominal distention. No acute events reported overnight. CPAP trials as tolerated. Dr. Mckenna will get a KUB to rule out possible obstruction. 12/28: KUB shows no acute process, CXR shows improvement. CPAP trials as tolerated. 12/29: CT Abd/pelvis noted with moderated bilateral pleural effusion, anasarca, and ascites. X1dose of IV lasix administered. D/w CCM and GI orders plan for thora and paracentesis by IR. Will also start patient on aldactone Qday. Patient is tolerating trickle feeds this am, continue TF and BR adjusted for constipation. Plan of care was discussed with patient and her at the bedside. Thorough discussion on patient's overall poor prognosis and that eddie ent will most likely be vent dependent. Patient's voiced understanding of the info given. All questions and concerns were voiced at this time. 12/30: Patient did not tolerate thoracentesis in IR yesterday due to change in LOC and hypoxia. Plan for possible bedside thoracentesis and paracentesis today. Patient remains afebrile. Patient required terminal press operator IV abx therapy [id number] left, orders placed for a PICC. Patient remains with sign. Piting edema and anasarca, X1 does of PO Zaroxolyn and 2m of IV lasix given. Electrolytes repleted, repeat lab in the am. 12/31: Tolerated Rt. thoracentesis at the bedside yesterday, 1.4L removed. Patient remains stable on the vent this am, tolerating CPAP today PS dropped to 14. Recent CXR noted, left pleural effusion improved. Patient tolerated gentle diurese yesterday, good urine output reported. D/w CCM hold off on Left thoracentesis today, continue PO Aldactone and additonal zaroxolyn and IV lasix again today. F/u CXR in the am. 01/01: This am CXR noted with worsening bilateral pleural effusion. Patient is stable and tolerating PST this am, however PS is back up to 20 this am. BP is soft this am will hold off on IV diuretic for today, continue PO Aldactone. D/w CCM continue gentle diurese as tolerated. Will reassess in the am. Continue s upport care. 01/02: [facility]MEN overnight. VSS this am, tolerating PST. X1dose of 25% IV Albumin following with 20mg IV Lasix today. Continue daily gentle diurese if hemodynamics tolerate it. Continue to monitor and replace electrolytes as needed 01/03: Abdominal distention and vomiting overnight, 600cc of gastric residual removed, TF held. KUB with no acute abnormality. Reglan added X2days, resume TF, and continue BR. Patient is tolerating PST this am. Hemodynamics remains stable, will continue gentle IV diurese. close monitoring to renal function and electrolytes. 01/04: Tolerating TF, nausea/vomiting resolved, last BM on 01/03. Continue Reglan X1 more day. Patient continue to tolerate PST. D/W CCM continue gentle diurese. F/U CXR in the am. Possible US thoracentesis tomorrow. 01/05: no acute events overnight. scheduled for thoracentesis today but procedure pushed to tomorrow. TF restarted and will be NPO post MN. 01/06: planned thoracentesis today. Working with CM for ltac/snf approval. 01/07: s/p thoracentesis 120 cc appears to have been removed. Pulm recommendations noted, agree with continued diuresis and weaning. Continued planning with CM for ltac/snf placement. 01/08: No new issues. Continue vent weaning per pulmonary. Continuing to work with CM for placement. 01/09: No new issues. Continue vent weaning per pulmonary. Continuing to work with CM for placement. Ordered BMP for tomorrow to check kidney function as patient is currently being diuresed. 01/10: No new issues. Continue vent weaning/diuresis as directed by pulmonary medicine.BMP demonstrates normal renal function and potassium. Sodium and Chloride consistent with prior labs. Will recheck BMP in 2 days. Placement continues to be an issue as patient has been denied at all facilities. Will reasses with CM on wednesday. 01/11: Emesis overnight. Do not suspect that she is obstructed as she had 2 BM reported. Will order Reglan prn, drop TF rate to goal of 30 cc/hr. Will continue to work on placement. 01/12: Per RN patient had reported that she was tired and did not want to persist in her current state of health. D/w patient Niraj at patient bedside and stated that I recommended the patient/family at least talk with hospice to get a better understanding of their care. He was agreeable. I spoke with Ms. Busby who will help set up referral for hospice service so that family can be educated and, if the patient chooses, can pursue this option. 01/13: Continue supportive care. Family discussing about hospice. Continue reinforcement and continue weaning as tolerated. Prognosis is guarded and poor. Patient is clinically stable to transfer to the next level of care has not required any escalation in management. Has been stable on the vent awake alert following commands. 01/14: Relep-ib-[id number]. Considering abdominal distention tube feedings hold along with the fact that the patient vomited yesterday. Will obtain a CT abdomen and pelvis to further evaluate placement. Discussed with nursing staff. Awaiting to have a family conversation with the for goals of care discussion again. 01/15: Continue supportive care, tube feed was restarted yesterday and tolerated, will start on simethicone for gas control and management. Patient is clinically stable for all lower level of care and continued weaning from the ventilator to appropriate facility. Family still undecided about goals of care. We will also check labs intermittently. 01/16: Patient today went for Chest tube placement on the right side for recurrent pleural effusion, with the goal of evaluating to see if we can wean off the vent. She has remained on the vent and with some persistent anxiety. she continues to tolerate tube feed. Again poor prognosis discussed with family. 01/17: Status post chest tube, with output of approximately 1880 cc since placement. Will continue to work with pulmonology for vent weaning. 01/18: Only tolerated 1 hr of t piece trial yesterday per RT. Patient PaO2 50s on abg last night. Will continue to work with pulmonary medicine for vent weaning. abg, cbc, bmp, xr chest ordered for am. 01/19: On t piece trial this AM. labs reviewed. CXR reviewed and appears stable with no new changes. AB.42/47.8/112.3/30.9. Will follow pulmonary recommendations and plan to continue to wean off of vent. 01/20: Per CM, [facility] declined patient admission as there are T stated the patient was not amenable from the vent. Yesterday patient had tolerated T-piece trial for approximately 12 hours. Today patient only tolerated for 45 minutes. Had desatted and stated that she was in pain during today's trial. Output yesterday from chest tube 1000 cc. Today it is 100 cc thus far. Will obtain chest x-ray tomorrow. 01/21: XR chest demonstrate mild improvement in pulmonary edema. Chest tube OP: 400 cc on 01/20 and 450 cc thus far today. On CPAP trial this am. Hopefully patient can eventually be weaned off of vent. Placement continues to be a challenge as patient has been denied at all facilities thus far, working with CM who has been in frequent contact with [facility]. 01/22: Yesterday the patient had lasted approximately 10 hours on T-piece trial. Output from chest tube approximately 525 cc yesterday. Thus far today patient has had 400 cc. Will follow with pulmonology regarding overall plan for chest tube and weaning patient off ventilator. 01/23: chest tube output 838 cc. Follow pulmonology plan re: chest tube and vent weaning. Placement remains challenging. 01/24: Very fatigue on t - piece trial yesterday afternoon, placed on full MV support. Will re-attempt today poss. Patient will complete Vancomycin course for MRSA tx on Friday 01/26. She has been afebrile sine 01/02. Current barriers to placement are weaning patient off of ventilator and removing chest tube as thus far all facilities have declined the patient. 01/25: AM CXR shows worsening pulmonary edema. On t-piece trial this AM. Patient still continues to have output from chest tube. Will follow pulmonary recs today. 01/26: Difficulty breathing this AM. Chest tube OP approx 1L yesterday. Ordered Albumin due to hypotension noted this AM. Lasix 20 mg IV in addition to po lasix ordered for pulmonary edema. Labs ordered. 01/27: Antibiotics completed for MRSA bacteremia yesterday. Will start po bactrim for suppression per ID recommendation. Remains on MV support this AM. Blood pressure improved..actually hypertensive. Chest tube OP 50 cc yesterday. Metabolic profile noted, BUN slightly elevated but Cr in range. Can continue with lasix diuresis. Will likely need pleurx nursing home at some point in place of the chest tube. intermediate manager prognosis remains guarded to poor. 01/28: Continue current ATP to vapotherm, agree with possible pluerex catheter for intermittent drainage/ following review of xray will trial Bumex for diuresis. Poor prognosis. 01/29: Patient seen and examined doing well diuresing appropriately with a change to Bumex therapy. Discussed with anthropology faculty member still with good volume output fluid overload will try to diurese over the weekend. We will check a chest x- ray in the morning to see improvement in the lungs and probably repeat on Wednesday. Anticipate discharge to SNF on Wednesday clinically she is improving likely will not need a Pleurx catheter on discharge. Prognosis remains guarded Neuro : Anxiety, chronic pain -Neurology consulted, appreciate recommendations -CT brain showed no acute events -EEG interpreted as abnormal record due to diffuse slowing noted throughout the recording, suggestive of encephalopathic process and/or drug effect, possibilities of postictal state cannot be totally excluded. Clinical correlation is in order -MRI brain not obtained-> patient has metal in her body -Repeat CT head with no acute findings -Reorientation as needed -Ammonia 42, B12 1823, TSH 1.5 -BuSpar, Seroquel, [place], gabapentin -prn xanax and Dilaudid Cardio: Acute Heart failure with reduced EF, h/o chronic heart block s/p PPM, HTN, CAD s/p PCI (2004), Moderate pulmonary HTN, cardiomyopathy -s/p vasopressor support with levophed -11/04 echocardiogram shows EF 30 to 35%, Moderate pulmonary HTN RVSP 49 -3/4 echo with 35-40% EF -Cardiology consulted, appreciate recommendations -Continue beta-charleen and statin therapy -Midodrine (titrate as needed) -Not on aspirin due to allergy -Blood pressure monitoring per protocol -As needed nitroglycerin Resp: Acute hypoxic respiratory failure secondary to bilateral pneumonia, recurrent bilateral pleural effusion s/p rt sided chest tube. Right pneumothorax (resolved). -COVID-19 PCR negative -Intubated on 11/06 with 6.00 ETT at 18 at the lip and changed over bougie on 11/11-7.50 ETT at 20 at the lip -See RT notes for titration -PSV as tolerated -Surgery consult for trach -Received trach/PEG on 11/26 -S/p bedside bronchoscopy on 11/11 complicated by pneumothorax -S/p chest tube placement for right pneumothorax and dislodgment by patient on 11/15 -ABG/CXR per CCM -VAP bundle -Right chest wall ultrasound showed pleural effusion s/p chest tube -12/11 US thoracentesis removed 1L fluid -12/29 US thoracentesis removed 1.4L fluid -01/06 thoracentesis planned -01/16 right-sided chest tube placed by IR -SPO2 monitoring GI: S/p GI bleed, duodenal ulcer, transaminitis -GI consulted, appreciate recommendations-signed off -Nutrition consult for tube feeding, currently on nepro TF 45 cc/hr, dropped to 30 cc/hr due to concerns for emesis. -BR: Senokot -s/p peg 11/26 -H2 charleen -Carafate -24-hour +428 ml -10/2021 Gastric occult positive -> EGD-> duodenal ulcer -12/14 occult stool positive - reglan prn. : Urinary retention (resolved), hyponatremia, hypochloremia -Strict intake and output -Trend BMP ID: Septic shock (POA-resolved), bilateral pneumonia, MRSA bacteremia/pna -Infectious disease consulted, appreciate recommendations -COVID-19 PCR negative -Presented with fevers, leukocytosis and hypotension -11/04 blood cultures positive with a group B strep bacteremia 12/19 however repeat blood cultures on the with no growth to date -Echo showed no evidence of vegetation -repeat echo showed EF 35-40 % with no vegetations -ABX therapy: IV vancomycin for 4 weeks (12/16-01/26) -Monitor WBC and fever curve -Bedside bronchoscopy for mucous plug on CXR 11/11 -f/u blood cultures Heme: Acute DVT in the right external iliac vein, common femoral vein, superior aspect of femoral vein, Acute microcytic anemia -Evidenced on bilateral upper lower extremity ultrasound -S/p 7 unit PRBC -Trend CBC -Transfuse for hemoglobin less than 7 -heparin gtt dc d/t anemia -S/p IVC filter Endo: h/o DM and hypothyroidism -Continue home Synthroid -SSI -Accu-Cheks every 6 -Avoid hypoglycemia History Interval history: Patient seen and examined, resting comfortable. Discussed with nursing staff patient had an 800 cc output on the chest tube and 600 [facility] exam Narrative exam: VITAL SIGNS: Reviewed. GENERAL: The patient appears normally developed, ATP to vapotherm, vital signs as documented. Frail appearing elderly woman. HEAD: No signs of head trauma. EYES: Pupils are equal. Extraocular motions intact. EARS: Hearing grossly intact. MOUTH: Oropharynx is normal. NECK: No adenopathy, no JVD. Trach to VAPOTHERM CHEST: Bl rhonchi, right sided chest tube CARDIAC: Regular rate and rhythm. S1 and S2, without murmurs, gallops, or rubs. VASCULAR: No Edema. Peripheral pulses normal and equal in all extremities. ABDOMEN: Soft, non tender and mildly distended. No rebound or guarding, and no masses palpated. Bowel Sounds normal. MUSCULOSKELETAL: Good range of motion of all major joints. Extremities without clubbing, cyanosis or edema. NEUROLOGIC EXAM: Alert and oriented x 3. No focal sensory or strength deficits. PSYCHIATRIC: stable SKIN: detail exam as documented in skin assessment - Constitutional Vitals: Temp Pulse Resp BP Pulse Ox 97.7 F 72 28 H 132/63 94 01/29/22 08:00 01/29/22 10:08 01/29/22 07:01 01/29/22 10:08 01/29/22 08:40 General appearance: Present: no acute distress HEART Score - HEART Score Troponin: Troponin T 0.078 ng/mL (0.00-0.029) H 01/15/22 Unknown Results - Labs CBC & Chem 7: 01/26/22 10:16 01/29/22 04:40 Labs: Laboratory Last Values WBC 12.7 K/mm3 (4.5-11.0) H 01/26/22 10:16 RBC 3.74 M/mm3 (3.65-5.03) 01/26/22 10:16 Hgb 9.9 gm/dl (10.1-14.3) L 01/26/22 10:16 Hct 31.1 % (30.3-42.9) 01/26/22 10:16 MCV 83 fl (79-97) 01/26/22 10:16 MCH 27 pg (28-32) L 01/26/22 10:16 MCHC 32 % (30-34) 01/26/22 10:16 RDW 18.3 % (13.2-15.2) H 01/26/22 10:16 Plt Count 269 K/mm3 (140-440) 01/26/22 10:16 Lymph % (Auto) 25.6 % (13.4-35.0) 01/26/22 10:16 [place] % (Auto) 4.5 % (0.0-7.3) 01/26/22 10:16 Eos % (Auto) 4.5 % (0.0-4.3) H 01/26/22 10:16 Baso % (Auto) 0.7 % (0.0-1.8) 01/26/22 10:16 Lymph # (Auto) 3.2 K/mm3 (1.2-5.4) 01/26/22 10:16 [place] # (Auto) 0.6 K/mm3 (0.0-0.8) 01/26/22 10:16 Eos # (Auto) 0.6 K/mm3 (0.0-0.4) H 01/26/22 10:16 Baso # (Auto) 0.1 K/mm3 (0.0-0.1) 01/26/22 10:16 Add Manual Diff Complete 01/19/22 04:50 Total Counted 100 01/15/22 14:36 Seg Neutrophils % 64.7 % (40.0-70.0) 01/26/22 10:16 Seg Neuts % (Manual) 82.0 % (40.0-70.0) H 01/15/22 14:36 Band Neutrophils % 0 % 01/15/22 14:36 Lymphocytes % (Manual) 11.0 % (13.4-35.0) L 01/15/22 14:36 Reactive Lymphs % (Man) 0 % 01/15/22 14:36 Monocytes % (Manual) 5.0 % (0.0-7.3) 01/15/22 14:36 Eosinophils % (Manual) 1.0 % (0.0-4.3) 01/15/22 14:36 Basophils % (Manual) 1.0 % (0.0-1.8) 01/15/22 14:36 Metamyelocytes % 0 % 01/15/22 14:36 Myelocytes % 0 % 01/15/22 14:36 Promyelocytes % 0 % 01/15/22 14:36 Blast Cells % 0 % 01/15/22 14:36 Nucleated RBC % Not Reportable 01/15/22 14:36 Seg Neutrophils # 8.2 K/mm3 (1.8-7.7) H 01/26/22 10:16 Seg Neutrophils # Man 8.8 K/mm3 (1.8-7.7) H 01/15/22 14:36 Band Neutrophils # 0.0 K/mm3 01/15/22 14:36 Lymphocytes # (Manual) 1.2 K/mm3 (1.2-5.4) 01/15/22 14:36 Abs React Lymphs (Man) 0.0 K/mm3 01/15/22 14:36 Monocytes # (Manual) 0.5 K/mm3 (0.0-0.8) 01/15/22 14:36 Eosinophils # (Manual) 0.1 K/mm3 (0.0-0.4) 01/15/22 14:36 Basophils # (Manual) 0.1 K/mm3 (0.0-0.1) 01/15/22 14:36 Metamyelocytes # 0.0 K/mm3 01/15/22 14:36 Myelocytes # 0.0 K/mm3 01/15/22 14:36 Promyelocytes # 0.0 K/mm3 01/15/22 14:36 Blast Cells # 0.0 K/mm3 01/15/22 14:36 WBC Morphology Not Reportable 01/15/22 14:36 Hypersegmented Neuts Not Reportable 01/15/22 14:36 Hyposegmented Neuts Not Reportable 01/15/22 14:36 Hypogranular Neuts Not Reportable 01/15/22 14:36 Smudge Cells Not Reportable 01/15/22 14:36 Toxic Granulation Not Reportable 01/15/22 14:36 Toxic Vacuolation Not Reportable 01/15/22 14:36 Dohle Bodies Not Reportable 01/15/22 14:36 Pelger-Huet Anomaly Not Reportable 01/15/22 14:36 Irina Rods Not Reportable 01/15/22 14:36 Platelet Estimate Consistent w auto 01/15/22 14:36 Clumped Platelets Not Reportable 01/15/22 14:36 Plt Clumps, EDTA Not Reportable 01/15/22 14:36 Large Platelets Not Reportable 01/15/22 14:36 Giant Platelets Not Reportable 01/15/22 14:36 Platelet Satelliting Not Reportable 01/15/22 14:36 Plt Morphology Comment Not Reportable 01/15/22 14:36 RBC Morphology Not Reportable 01/15/22 14:36 Dimorphic RBCs Not Reportable 01/15/22 14:36 Polychromasia Not Reportable 01/15/22 14:36 Hypochromasia Not Reportable 01/15/22 14:36 Poikilocytosis Not Reportable 01/15/22 14:36 Anisocytosis 1+ 01/15/22 14:36 Microcytosis Not Reportable 01/15/22 14:36 Macrocytosis Not Reportable 01/15/22 14:36 Spherocytes Not Reportable 01/15/22 14:36 Pappenheimer Bodies Not Reportable 01/15/22 14:36 Sickle Cells Not Reportable 01/15/22 14:36 Target Cells Not Reportable 01/15/22 14:36 Tear Drop Cells Not Reportable 01/15/22 14:36 Ovalocytes Not Reportable 01/15/22 14:36 Helmet Cells Not Reportable 01/15/22 14:36 [place] Bodies Not Reportable 01/15/22 14:36 Dudley Rings Not Reportable 01/15/22 14:36 Malcom Cells Not Reportable 01/15/22 14:36 Bite Cells Not Reportable 01/15/22 14:36 Crenated Cell Not Reportable 01/15/22 14:36 Elliptocytes Not Reportable 01/15/22 14:36 Acanthocytes (Spur) Not Reportable 01/15/22 14:36 Rouleaux Not Reportable 01/15/22 14:36 Hemoglobin C Crystals Not Reportable 01/15/22 14:36 Schistocytes Not Reportable 01/15/22 14:36 Malaria parasites Not Reportable 01/15/22 14:36 Godfrey Bodies Not Reportable 01/15/22 14:36 Hem Pathologist Commnt No 01/15/22 14:36 PT 16.9 Sec. (12.2-14.9) H 01/06/22 04:06 INR 1.23 (0.87-1.13) H 01/06/22 04:06 APTT 29.2 Sec. (24.2-36.6) 11/26/21 05:00 D-Dimer 2655.00 ng/mlDDU (0-234) H 11/11/21 04:28 ABG pH 7.488 pH Units (7.350-7.450) H 01/25/22 12:20 ABG pCO2 38.2 mm Hg 01/25/22 12:20 ABG pO2 58.9 mm Hg (80.0-90.0) L 01/25/22 12:20 ABG HCO3 28.3 mmol/L (20.0-26.0) H 01/25/22 12:20 ABG O2 Saturation 94.9 % (95.0-99.0) L 01/25/22 12:20 ABG O2 Content 11.4 (0.0-44) 01/25/22 12:20 ABG Base Excess 4.7 mmol/L (-2.0-3.0) H 01/25/22 12:20 ABG Hemoglobin 8.7 gm/dl (12.0-16.0) L 01/25/22 12:20 ABG Carboxyhemoglobin 1.8 % (0.0-5.0) 01/25/22 12:20 ABG Methemoglobin 0.5 % (0.0-1.5) 01/25/22 12:20 Oxyhemoglobin 92.7 % (95.0-99.0) L 01/25/22 12:20 FiO2 35 % 01/25/22 12:20 Sodium 137 mmol/L (137-145) 01/29/22 04:40 Potassium 4.1 mmol/L (3.6-5.0) 01/29/22 04:40 Chloride 95.9 mmol/L (98-107) L 01/29/22 04:40 Carbon Dioxide 29 mmol/L (22-30) 01/29/22 04:40 Anion Gap 16 mmol/L 01/29/22 04:40 BUN 36 mg/dL (7-17) H 01/29/22 04:40 Creatinine 0.6 mg/dL (0.6-1.2) 01/29/22 04:40 Estimated GFR > 60 ml/min 01/29/22 04:40 BUN/Creatinine Ratio 60 % 01/29/22 04:40 Glucose 127 mg/dL (65-100) H 01/29/22 04:40 POC Glucose 108 mg/dL (70-105) H 01/29/22 05:52 Lactic Acid 3.70 mmol/L (0.7-2.0) H* 11/03/21 22:32 Calcium 8.8 mg/dL (8.4-10.2) 01/29/22 04:40 Phosphorus 4.00 mg/dL (2.5-4.5) 01/26/22 10:16 Magnesium 1.70 mg/dL (1.7-2.3) 01/26/22 10:16 Ferritin 52.6 ng/mL (10.0-200.0) 11/05/21 06:11 Total Bilirubin 0.50 mg/dL (0.1-1.2) 11/17/21 05:56 Direct Bilirubin < 0.2 mg/dL (0-0.2) 11/11/21 04:28 Indirect Bilirubin 0.1 mg/dL 11/11/21 04:28 AST 36 units/L (5-40) 11/17/21 05:56 ALT 47 units/L (7-56) 11/17/21 05:56 Alkaline Phosphatase 107 units/L (35-129) 11/17/21 05:56 Ammonia 42.0 umol/L (25-60) 11/10/21 14:08 Lactate Dehydrogenase 187 units/L (91-180) H 11/05/21 06:11 Troponin T 0.078 ng/mL (0.00-0.029) H 01/15/22 Unknown C-Reactive Protein 22.20 mg/dL (0.00-1.30) H 11/05/21 06:11 NT-Pro-B Natriuret Pep 7895 pg/mL (0-900) H 11/03/21 22:32 Total Protein 5.1 g/dL (6.3-8.2) L 11/17/21 05:56 Albumin 2.2 g/dL (3.9-5) L 11/17/21 05:56 Albumin/Globulin Ratio 0.8 % 11/17/21 05:56 Triglycerides 72 mg/dL (2-149) 01/15/22 21:07 Cholesterol 103 mg/dL (50-199) 01/15/22 21:07 LDL Cholesterol Direct 44 mg/dL (50-130) L 01/15/22 21:07 HDL Cholesterol 46 mg/dL (40-59) 01/15/22 21:07 Cholesterol/HDL Ratio 2.23 % 01/15/22 21:07 Vitamin B12 1823 pg/mL (211-911) H 11/10/21 14:08 TSH 1.510 mlU/mL (0.270-4.200) 11/10/21 14:08 Urine Color Shamika (Yellow) 01/23/22 09:36 Urine Turbidity Turbid (Clear) 01/23/22 09:36 Urine pH 7.0 (5.0-7.0) 01/23/22 09:36 Ur Specific [place] 1.011 (1.003-1.030) 01/23/22 09:36 Urine Protein <15 mg/dl mg/dL (Negative) 01/23/22 09:36 Urine Glucose (UA) Neg mg/dL (Negative) 01/23/22 09:36 Urine Ketones Neg mg/dL (Negative) 01/23/22 09:36 Urine Blood Sm (Negative) 01/23/22 09:36 Urine Nitrite Neg (Negative) 01/23/22 09:36 Urine Bilirubin Neg (Negative) 01/23/22 09:36 Urine Urobilinogen 2.0 mg/dL (<2.0) 01/23/22 09:36 Ur Leukocyte Esterase Lg (Negative) 01/23/22 09:36 Urine WBC (Auto) 16.0 /HPF (0.0-6.0) H 01/23/22 09:36 Urine RBC (Auto) 32.0 /HPF (0.0-6.0) 01/23/22 09:36 U Epithel Cells (Auto) 1.0 /HPF (0-13.0) 01/23/22 09:36 Urine Bacteria (Auto) 4+ /HPF (Negative) 01/23/22 09:36 Urine Mucus Few /HPF 01/23/22 09:36 Urine Yeast (Budding) 3+ /HPF 01/23/22 09:36 Urine Sperm Few /HPF (TECHNICAL BUSINESS ANALYST) 01/23/22 09:36 Fluid Type Pleural 01/06/22 13:40 Fluid Color Yellow 01/06/22 13:40 Fluid Appearance Hazy 01/06/22 13:40 Fluid WBC 273 /mm3 01/06/22 13:40 Fluid RBC 45 /mm3 01/06/22 13:40 Fluid Seg Neutrophils 47.0 % 01/06/22 13:40 Fluid Lymphocytes 22.0 % 01/06/22 13:40 Fluid Monocytes 10.0 % 01/06/22 13:40 Fluid Eosinophils 19.0 % 01/06/22 13:40 Fluid Basophils 2.0 % 01/06/22 13:40 Fluid Glucose 96 mg/dL (40-70) H 01/06/22 13:40 Fluid Total Protein < 3.0 (15.0-45.0) L 01/06/22 13:40 Fluid LDH 149 01/06/22 13:40 Vancomycin Trough 11.8 ug/mL (5.0-20.0) 01/22/22 10:14 Random Vancomycin 10.5 ug/mL (0-40.0) 01/04/22 05:00 Coronavirus (PCR) Negative (Negative) 11/10/21 08:30 Blood Type O POSITIVE 12/14/21 10:30 Antibody Screen Negative 12/14/21 10:30 Crossmatch See Detail 12/14/21 10:30 Gamble/IV: Voiding Method External Female Catheter Active Medications - Current Medications Current Medications: Generic Name Dose Route Start Last Admin Trade Name Freq PRN Reason Stop Dose Admin Acetaminophen 650 mg 12/14/21 04:12 01/26/22 03:19 Acetaminophen 325 Mg/10.15 Ml Oral Liqd Unit Dose FEEDTUBE 650 mg Q6H PRN Administration Non Cardiac Pain or Temp>100.5 Hydrocodone Bitart/Acetaminophen 1 each 11/21/21 10:00 01/29/22 08:58 Hydrocodone/Acetaminophen 10-325mg Tab FEEDTUBE 1 each TID YOSSI Administration Alprazolam 0.25 mg 01/22/22 03:00 01/28/22 05:07 Alprazolam 0.5 Mg Tab FEEDTUBE 0.25 mg Q8H PRN Administration Agitation Lipase/Protease/Amylase 1 each 11/08/21 11:09 Lipase 10,500/Protease 25,000/Amylase 43,750 (Units) Dr Lema FEEDTUBE PRN PRN For Clogged Feeding Tube Bumetanide 1 mg 01/28/22 10:00 01/29/22 10:07 Bumetanide 1 Mg/4 Ml Inj IV 01/31/22 09:59 1 mg DAILY YOSSI Administration Buspirone HCl 7.5 mg 12/30/21 10:00 01/29/22 10:07 Buspirone 5 Mg Tab FEEDTUBE 7.5 mg BID YOSSI Administration Dextrose 50 ml 01/16/22 14:00 Dextrose 50% In Water (25gm) 50 Ml Syringe IV Q30MIN PRN Hypoglycemia Protocol Docusate Sodium 100 mg 12/30/21 10:00 01/29/22 10:09 Docusate Sodium 100 Mg/10 Ml Oral Liqd FEEDTUBE Not Given BID YOSSI Gabapentin 100 mg 01/22/22 10:00 01/29/22 10:13 Gabapentin 500 Mg/10 Ml Oral Liqd FEEDTUBE 100 mg QDAY YOSSI Administration Hydrophilic Ointment 1 applic 11/06/21 04:02 Lip Therapy Vaseline TP Q2HR PRN Dry Lips Lansoprazole 30 mg 11/24/21 22:00 01/29/22 10:08 Lansoprazole 30 Mg Solutab FEEDTUBE 30 mg BID YOSSI Administration Levothyroxine Sodium 125 mcg 12/31/21 06:00 01/29/22 06:51 Levothyroxine 125 Mcg Tab FEEDTUBE 125 mcg DAILY@0600 YOSSI Administration Melatonin 5 mg 12/05/21 22:00 01/28/22 23:00 Melatonin 5 Mg Tab PO 5 mg QHS YOSSI Administration Metoclopramide HCl 10 mg 01/11/22 13:25 01/21/22 21:43 Metoclopramide 10 Mg/2 Ml Inj IV 10 mg Q6H PRN Administration Nausea And Vomiting Metoprolol Tartrate 6.25 mg 12/30/21 10:00 01/29/22 10:08 Metoprolol Tartrate 25 Mg Tab FEEDTUBE 6.25 mg BID YOSSI Administration Midodrine 10 mg 01/21/22 08:00 01/29/22 08:58 Midodrine 5 Mg Tab FEEDTUBE 10 mg TID@0800,1200,1600 [facility] Administration Multi-Ingred Cream/Lotion/Oil/Oint 1 applic 11/06/21 04:02 Mineral Oil/Petrolatum, White Ophth Oint 3.5 Gm OU Q4HR PRN Dry Eye(s) Ondansetron HCl 4 mg 12/05/21 10:00 01/20/22 22:10 Ondansetron 4 Mg/2 Ml Inj IV 4 mg Q8H PRN Administration Nausea And Vomiting Polyethylene Glycol 17 gm 12/30/21 10:00 01/29/22 10:09 Polyethylene Glycol 3350 17 Gm Powder FEEDTUBE Not Given QDAY [facility] Pravastatin Sodium 20 mg 12/30/21 22:00 01/28/22 23:01 Pravastatin 20 Mg Tab FEEDTUBE 20 mg QHS [facility] Administration Quetiapine Fumarate 25 mg 12/30/21 10:00 01/29/22 10:07 Quetiapine 25 Mg Tab FEEDTUBE 25 mg QAM YOSSI Administration Quetiapine Fumarate 50 mg 12/30/21 22:00 01/28/22 23:02 Quetiapine 25 Mg Tab FEEDTUBE 50 mg QHS YOSSI Administration Senna 17.6 mg 12/29/21 11:00 01/29/22 10:09 Sennosides Oral Liqd 8.8 Mg/5 Ml Oral Liqd FEEDTUBE Not Given Q12HR [facility] Simethicone 80 mg 01/15/22 15:06 01/15/22 21:10 Simethicone 80 Mg Chew Tab PO 80 mg PC PRN Administration Gas pain Simple Syrup 15 ml 11/08/21 11:09 Simple Syrup 15 Ml FEEDTUBE PRN PRN Hypoglycemia Simple Syrup 30 ml 11/08/21 11:09 Simple Syrup 15 Ml FEEDTUBE PRN PRN Hypoglycemia Sodium Bicarbonate 325 mg 11/08/21 11:09 01/09/22 20:25 Sodium Bicarbonate 325 Mg Tab FEEDTUBE 325 mg PRN PRN Administration For Clogged Feeding Tube Sodium Chloride 10 ml 11/04/21 10:00 01/29/22 10:09 Sodium Chloride 0.9% 10 Ml Flush Syringe IV 10 ml BID YOSSI Administration Sodium Chloride 10 ml 11/04/21 02:03 01/09/22 06:35 Sodium Chloride 0.9% 10 Ml Flush Syringe IV 10 ml PRN PRN Administration LINE FLUSH Spironolactone 25 mg 12/30/21 10:00 01/29/22 10:07 Spironolactone 25 Mg Tab FEEDTUBE 25 mg QDAY YOSSI Administration Sucralfate 1 gm 12/30/21 12:00 01/29/22 06:50 Sucralfate 1 Gm/10 Ml Oral Liqd FEEDTUBE 1 gm Q6HR YOSSI Administration Trazodone HCl 50 mg 12/04/21 22:00 01/28/22 23:00 Trazodone 50 Mg Tab PO 50 mg QHS YOSSI Administration Trimethoprim/Sulfamethoxazole 160 mg 01/27/22 13:00 01/29/22 10:07 Sulfamethoxazole/Trimethoprim 200-40 Mg/5 Ml Oral Liqd 30 Ml PO 160 mg Q24HR YOSSI Administration Protocol Nutrition/Malnutrition Assess - Dietary Evaluation Nutrition/Malnutrition Findings: Nutrition Notes Start: 11/04/21 17:16 Freq: Status: Active Protocol: Document 01/26/22 14:39 YOVANI (Rec: 01/26/22 14:45 YOVANI [id number]) Nutrition Notes Initial or Follow up Reassessment Current Diagnosis Coronary Artery Disease, Diabetes,Hypertension,Heart Failure,Respiratory Failure Other Pertinent Diagnosis Bilat pleural effusion Current Diet TF - Vital AF 1.2 at 35ml/hr Labs/Tests Reviewed Pertinent Medications 25% Human albumin x 1 dose, Lasix x 1 dose Height 5 ft Weight 62.6 kg [place] Body Weight (kg) 45.45 BMI 26.9 Weight Status Overweight Subjective/Other Information Pt tolerating TF at goal rate. Pt remains on T-piece trials , however, was on vent support at time of visit today; chest tube still in place with substantial output. Percent of energy/protein needs met: 84% energy and pro Burn Absent Trauma Absent #2 Nutrition Diagnosis Inadequate enteral nutrition infusion #1 Nutrition Diagnosis Inadequate oral intake Diagnosis Progress(for reassessment Continues documentation) Is patient on ventilator? Yes Is Patient Ambulatory and/or Out of Bed No REE-([facility]-confined to bed) 1210.212 Calculation Used for Recommendations [facility] Additional Notes Pro needs 1.2-2g/k-125g/ day Fluid needs 1ml/kcal Nutrition Intervention Nutrition Support: Continue Vital AF 1.2 at 35ml/ hr with 50ml water flush q4h. Kcal 1,008 Protein (gm) 63 Carbohydrates (gm) 45 Fat (gm) 45 Fluid (mL) 681 Fiber (gm) 4 Add Supplement/Snack (indicate name/kcal Jaswant BID /protein ) Provides kCal: 190 Provides Protein (gm) 5 Goal #1 TF tolerance Goal #2 TF to meet at least 75% energy and pro needs Goal #3 Wound healing Follow-Up By: 02/02/22 Additional Comments F/U: stable TF, wt, vent status, wound healing/Jaswant administration
[2022-01-29] MEDS: traZODone 50 MG TAB PO SCH (21:40)
[2022-01-29] MEDS: MELATONIN 5 MG TAB PO SCH (21:41)
[2022-01-29] MEDS: PRAVASTATIN 20 MG TAB FEEDTUBE SCH (21:41)
--- NOTE | 2022-01-30 04:35 | XRay Report ---
CHEST 1 VIEW INDICATION / CLINICAL INFORMATION: pleural effusion. FINDINGS: SUPPORT DEVICES: No significant change in position. HEART / MEDIASTINUM: The cardiomediastinal silhouette has not significantly changed in the interim. LUNGS / PLEURA: Bilateral airspace disease/edema and tiny pleural effusions are not changed from 01/25. Signer Name: Leroy Garcia MD Signed: 01/30/2022 4:31 AM Workstation Name: [employer]
[2022-01-30] MEDS: SUCRALFATE 1 GM/10 ML ORAL LIQD FEEDTUBE SCH ×4 (06:07→23:41)
[2022-01-30] MEDS: LEVOTHYROXINE 125 MCG TAB FEEDTUBE SCH (06:07)
[2022-01-30] MEDS: HYDROcodone/ACETAMINOPHEN 10-325MG TAB FEEDTUBE SCH ×3 (08:50→22:20)
[2022-01-30] MEDS: MIDODRINE 5 MG TAB FEEDTUBE SCH ×3 (08:50→16:55)
[2022-01-30] MEDS: busPIRone 5 MG TAB FEEDTUBE SCH ×2 (09:30→22:20)
[2022-01-30] MEDS: SPIRONOLACTONE 25 MG TAB FEEDTUBE SCH (09:39)
[2022-01-30] MEDS: LANSOPRAZOLE 30 MG SOLUTAB FEEDTUBE SCH ×2 (09:39→22:20)
[2022-01-30] MEDS: METOPROLOL TARTRATE 25 MG TAB FEEDTUBE SCH ×2 (09:39→22:21)
[2022-01-30] MEDS: QUEtiapine 25 MG TAB FEEDTUBE SCH ×2 (09:40→22:20)
[2022-01-30] MEDS: SULFAMETHOXAZOLE/TRIMETHOPRIM 200-40 MG/5 ML ORAL LIQD 30 ML PO SCH (09:40)
[2022-01-30] MEDS: BUMETANIDE 1 MG/4 ML INJ IV SCH (09:40)
[2022-01-30] MEDS: DOCUSATE SODIUM 100 MG/10 ML ORAL LIQD FEEDTUBE SCH ×2 (09:40→22:20)
[2022-01-30] MEDS: POLYETHYLENE GLYCOL 3350 17 GM POWDER FEEDTUBE SCH (09:40)
[2022-01-30] MEDS: SENNOSIDES ORAL LIQD 8.8 MG/5 ML ORAL LIQD FEEDTUBE SCH ×2 (09:41→22:21)
[2022-01-30] MEDS: GABAPENTIN 500 MG/10 ML ORAL LIQD FEEDTUBE SCH (09:50)
--- NOTE | 2022-01-30 09:51 | Progress Note ---
Assessment and Plan Assessment and plan: This is an 82-year-old female with DM, HTN , CHB s/p PPM, CAD s/p PCI and arthritis who presented to the emergency department on 11/04 for shortness of breath ongoing for the past 3 days, cough and according to family a fever of 102.2. Upon arrival of EMS patient was found to be tachypneic and hypoxic with SPO2 of 76% on room air which later improved to 88% on nonrebreather. Work-up in the emergency department included a CXR which showed bilateral interstitial pulmonary edema with bilateral pleural effusions and bibasilar opacities, leukocytosis and anemia with a hemoglobin of 6.1. Patient was admitted to the hospitalist service with acute anemia, acute hypoxic respiratory failure, bilateral pneumonia and COVID-19 PUI with consults to pulmonology, infectious disease and later cardiology. Patient was eventually intubated in the emergency department on 11/06. Hospital Course to date: 11/04/2021: Empiric therapy with iv levaquin/vancomycin. COVID PCR pending. Will consult ID. PCCM consulted, will follow recs. Hypotensive this AM, ordered bolus and fluids at 150 cc/hr. May require pressor support if bp does not improve. 11/05/2021: GBS on bcx +, currently on rocephin IV. Currently on bipap due to respiratory distress overnight. Worsening BL opacities on CXR. May be volume overload vs pneumonia. Unfortunately bp too low for lasix at this point. WIll continue levophed and bipap. Once able to tolerate, may do trial of albumin/lasix. Call attempt made to Niraj, no response. Will try again tomorrow to update. 11/06/2021: Decompensated overnight requiring intubation. CXR shows worsening interstitial infiltrates. Currenlty on dopamine, levophed, vasopressin. PICC line ordered. Advised RN to place gamble for I/O monitoring. Would benefit from diuresis but very volume overloaded. Prognosis guarded 11/08: Off sedation this am, remains unresponsive only grimace to pain. Hold all sedatives agents for now, patient is off pressors this am. Hypernatremia from today's lab- D5W X1bag, and low K repleted, repeat lab in the am. Severe constipation also noted from KUB, BR added. 11/09: Sudden SPO2 drop in the 60s this am. Patient was manually bagged and deep suctioned. Patient is currently stable on the vent, repeat CXR with no significant change. D/w CCM Mucomyst and brochodilator added. Patient mentation is unchanged, continue to hold off on sedative agents. Neurology consulted. 11/10: Acute DVT noted on bilateral lower extremity Doppler ultrasound therefore she was started on Lovenox treatment dose. Failed SBT. Hypernatremia and hyperchloremia noted, free water flush adjusted. 11/11: Patient noted to be febrile with increasing of the cytosis, UA/BC sent and CXR ordered. ID escalated antibiotics to cefepime. CXR demonstrated mucous plug, bedside bronchoscopy was performed and O ETT was changed over bougie from 6 cm to 7.5. Patient was noted to have a pneumothorax postprocedure and chest tube was placed. Family updated by [facility]. Free water flush increased and will add Jaswant supplementation. 11/12: Patient not noted to follow commands, hypernatremia worsen/persist, increasing free water flush, potassium and magnesium and phosphorus repleted. Hemoglobin noted to be 7./24.5 from 7.03/12 yesterday. We will continue to trend and monitor. Vent changes per [facility]. Repeat CXR showed no residual pneumothorax. Consider waterseal tomorrow. Given persistent leukocytosis antibiotics escalated to cefepime per ID. 11/13: Remains on cefepime and vancomycin, vent changes per [facility]. Anemia noted and given 1 unit PRBC. And beta-charleen held in setting of Levophed drip infusing. Remains on fentanyl drip. 11/14: Patient put on CPAP trial by [facility], will continue chest tube until after extubation. Will rest on assist control. CT brain was cancelled by veneer stock grader and reordered. 11/15: Patient removed chest tube overnight. Will obtain cxr. remains on low dose levo. CTH completed with no acute findings. RT to place on CPAP. 11/16: Hypernatremia/hyperchloremia noted on the increase of day water flushes. Anemia noted and ordered PRBC. asked RT to place on cpap but not done yet 11/17: Patient remains on the vent, awake and following commands. H&H stable s/p 2units PRBCs. GI on consult, no intervention at this time. Will continue protonix gtt and serial H&H Q6hrs. Keep patient NPO for now, D5w added for hypernatremia and NPO status. Plan for IVC filter placement today by Vascular. 11/18: Patient is s/p IVC filter. H&H continue to trend down, hbg 6.1 this am, 1 unit of PRBCs ordered. Plan for possible EGD today by GI. Keep patient NPO, continue PPI drip and serial H&H Q6hrs. Electrolytes repleted, repeat lab in the am 11/19: S/p EGD- larger duodenal ulcer noted, see operative note. GI recommendations noted also noted. H&H stable this am. Keep patient on protonix gtt for now. Will keep patient NPO, continue IVF and serial H&H for now. Electrolytes repleted, repeat labs in the am 11/20: Very agitated and restless this am, fentanyl gtt resumed. Patient remains on protonix gtt, H&H remains stable. Will switch protonix gtt to IV BID, continue carafate and okay to resume meds at this time. Will F/u with GI to see if TF can be resumed. Gamble was reinserted overnight for retention. Electrolytes repleted, repeat in the am. Plan for possible PST today for possible extubation per CCM. 11/21: Patient is now on seroquel and patient's home buspar resumed. Patient more calm this morning, fentanyl gtt is off. H&H remains stable and patient is tolerating TF. Patient had a runs of Vtach/PVCs this am, BB added per Cardio. Continue daily PS and wean trial for possible extubation. 11/22: Back on fentanyl gtt overnight , RASS o to -1, following commands. Patient failed PST this am due to increased work of breathing and low SPO2, ABG pending. Patient is also with worsen pitting edema, lasix is still on hold. Will discuss with cardio and CCM to possibly resume lasix. 11/23: MARIA DEL CARMEN overnight. Patient failed PST again this am. Per CCM plan for possible trach and PEG, hold off on IV lasix for now. General surgery consulted and family is aware of possible Trach and PEG. 11/24: Trach/PEG pending this week, continue SBT/SAT as tolerated. No acute events reported overnight. 11/25: Patient was n.p.o. overnight and will remain n.p.o. tonight for trach/PEG tomorrow morning. She failed to support trial again. KUB obtained due to distended belly. 11/26: Patient scheduled for tracheostomy and PEG tube placement today, has been n.p.o. since midnight. No acute events reported overnight. [facility] ordered simethicone scheduled. 11/27: No acute events reported overnight, patient received trach/PEG yesterday. Has been on feedings since last night. Still awaiting LTAC placement. 11/28: Patient magnesium repleted, repeat a.m. labs, SBT 11/29: Patient complains of chest pain but ECG obtained which showed no acute findings, ordered troponin. Patient failed CPAP yesterday and was trialed again today. levophed was restarted but will aggressively wean 11/30: Patient failed SBT. Continue supportive care. Started gabapentin today 12/01: MARIA DEL CARMEN overnight. Continue daily PST. Case management to arrange possible placement 12/02: Report of dark stools overnight, patient is hemodynamically stable. H&H stable, patient is on PPI. Will continue to trend H&H. Continue daily PST as tolerated. Awaiting LTAC vs SNF placement. 12/03: Hypotensive overnight, requiring low dose pressors. S/p X3 days of gentle diurese. Will continue to monitor, wean off pressors as tolerated for MAP of 65. Patient Failed PST yesterday, case management to follow up with insurance for possible LTAC placement. Continue daily PST as tolerated. PT eval and treat ordered. 12/04: Increased agitation and anxiety overnight, remains on buspar and seroquel, trazadone added to promote rest. Patient is now working with PT, keep patient engage and awake during the day so she can rest at night. No BM for over 5 days, BR was adjusted. Patient did not tolerate PST again yesterday, continue daily PST as tolerated. Continue to titrate pressor for MAP above 65. Pending possible LTAC placement, case management to arrange. 12/05: Still not getting much rest overnight, will add melatonin for sleep. Continue to engage patient during the day and promote rest at night. TF was held due to concern for possible bleeding, H&H remains stable and stools normal this am. Resume TF and continue PPI and carafate. Remains on low dose levophed, titrate as tolerated. Continue daily PST. Possible LTAC placement, awaiting approval. 12/06: MARIA DEL CARMEN overnight. Patient rested overnight. Continue supportive measures. Daily PST as tolerated. Awaiting possible LTAC placement 12/07: MARIA DEL CARMEN overnight. Plan for Tpiece trial today. Continue current supportive measures. Possible LTAC placement 12/08: Patient placed on pressure support trial again today, started on Xanax, no acute events reported overnight. Awaiting insurance approval for LTAC. 12/09: Levophed discontinued, LTAC transfer denied, started on midodrine and Lasix, ultrasound chest pending, started on Xanax 0.[address] De León updated family at bedside today. Started on Dilaudid every 3 hours as needed. 12/10: Patient placed on CPAP trial this morning, no acute events reported overnight. Will order ultrasound-guided thoracentesis. 12/11: Patient had a thoracentesis today, will decrease Xanax dosage and continue midodrine and diuresing. Patient failed CPAP today. 12/12: Patient not tolerate CPAP trials today, no acute events reported overnight 12/13: No acute events overnight. continue PSV trials as tolerated. Daughter upd ated at bedside 12/14: Patient noted to be anemic today, ordered gastric occult. Patient seems to be oversedated therefore Xanax changed to as needed and fentanyl patch discontinued. We will continue to monitor hyponatremia. 12/15: MARIA DEL CARMEN overnight. s/p 1unit of PRBCs, H&H stable this am, no signs of any active bleeding. Continue daily PST as tolerated. Awaiting placement. 12/16: Hypertensive this am, Midodrine decreased. Continue daily PST. MARIA DEL CARMEN overnight 12/17: Patient Hgb dropped to 6 this am, no s/s of any active bleeding, VSS. Patient received 1unit of PRBC, will continue to trend H&H. Patient was pancultured and back on IV Abx due to persistent fevers yesterday. ID is also back on the case. Continue IV Abx per ID and f/u on cultures data for sensitivity. Patient also failed PST yesterday, continue daily PST as tolerated. Electrolytes repleted, repeat labs in the am. 12/18: Patient blood cultures is growing GPC 4 out 4 bottles. PICC line D/Rivas, patient is already on IV Abx-cefepine and Vanc and ID is following. Patient remains hemodynamically stable. Daily PST as tolerated adn PRN Benzo for anxiety. 12/19: MARIA DEL CARMEN overnight. Culture data noted, continue IV Abx per ID. Orders placed for repeat Bculture. Agmble D/C overnight, patient is voiding. Check bladder scan as needed for retention. Patient failed PST again today. Continue daily PST as tolerated. 12/20: Fevers improved, Cultures +MRSA, on Vanco per ID. Repeat 2D Echo to r/o endocarditis. Patient continue to fail PST, PEEP increased to 8 today. Continue pulmonary hygiene and vent wean per CCM. Sodium tab added for hyponatremia. 12/22: Patient on pressure support trial for approximately 4 hours today, midodrine dosage increased due to hypotension. Lasix discontinued. 12/23: Started on a.m. Seroquel dose, midodrine increased to 10 mg 3 times daily, 500 mL normal saline bolus. 12/24: Seroquel dose changed (25 every morning, 75 nightly). updated at bedside by Dr. De León. CPAP trials as tolerated. Continue vancomycin. Awaiting placement. 12/25: Continue CPAP as tolerated, added gasx for distention. Continue supportive care 12/26: Patient failed PSV this AM. no acute events overnight. 12/27: GI re-consulted due to abdominal distention. No acute events reported overnight. CPAP trials as tolerated. Dr. Mckenna will get a KUB to rule out possible obstruction. 12/28: KUB shows no acute process, CXR shows improvement. CPAP trials as tolerated. 12/29: CT Abd/pelvis noted with moderated bilateral pleural effusion, anasarca, and ascites. X1dose of IV lasix administered. D/w CCM and GI orders plan for thora and paracentesis by IR. Will also start patient on aldactone Qday. Patient is tolerating trickle feeds this am, continue TF and BR adjusted for constipation. Plan of care was discussed with patient and her at the bedside. Thorough discussion on patient's overall poor prognosis and that eddie ent will most likely be vent dependent. Patient's voiced understanding of the info given. All questions and concerns were voiced at this time. 12/30: Patient did not tolerate thoracentesis in IR yesterday due to change in LOC and hypoxia. Plan for possible bedside thoracentesis and paracentesis today. Patient remains afebrile. Patient required oil heaterman IV abx therapy [id number] left, orders placed for a PICC. Patient remains with sign. Piting edema and anasarca, X1 does of PO Zaroxolyn and 2m of IV lasix given. Electrolytes repleted, repeat lab in the am. 12/31: Tolerated Rt. thoracentesis at the bedside yesterday, 1.4L removed. Patient remains stable on the vent this am, tolerating CPAP today PS dropped to 14. Recent CXR noted, left pleural effusion improved. Patient tolerated gentle diurese yesterday, good urine output reported. D/w CCM hold off on Left thoracentesis today, continue PO Aldactone and additonal zaroxolyn and IV lasix again today. F/u CXR in the am. 01/01: This am CXR noted with worsening bilateral pleural effusion. Patient is stable and tolerating PST this am, however PS is back up to 20 this am. BP is soft this am will hold off on IV diuretic for today, continue PO Aldactone. D/w CCM continue gentle diurese as tolerated. Will reassess in the am. Continue s upport care. 01/02: MARIA DEL CARMEN overnight. VSS this am, tolerating PST. X1dose of 25% IV Albumin following with 20mg IV Lasix today. Continue daily gentle diurese if hemodynamics tolerate it. Continue to monitor and replace electrolytes as needed 01/03: Abdominal distention and vomiting overnight, 600cc of gastric residual removed, TF held. KUB with no acute abnormality. Reglan added X2days, resume TF, and continue BR. Patient is tolerating PST this am. Hemodynamics remains stable, will continue gentle IV diurese. close monitoring to renal function and electrolytes. 01/04: Tolerating TF, nausea/vomiting resolved, last BM on 01/03. Continue Reglan X1 more day. Patient continue to tolerate PST. D/W CCM continue gentle diurese. F/U CXR in the am. Possible US thoracentesis tomorrow. 01/05: no acute events overnight. scheduled for thoracentesis today but procedure pushed to tomorrow. TF restarted and will be NPO post MN. 01/06: planned thoracentesis today. Working with CM for ltac/snf approval. 01/07: s/p thoracentesis 120 cc appears to have been removed. Pulm recommendations noted, agree with continued diuresis and weaning. Continued planning with CM for ltac/snf placement. 01/08: No new issues. Continue vent weaning per pulmonary. Continuing to work with CM for placement. 01/09: No new issues. Continue vent weaning per pulmonary. Continuing to work with CM for placement. Ordered BMP for tomorrow to check kidney function as patient is currently being diuresed. 01/10: No new issues. Continue vent weaning/diuresis as directed by pulmonary medicine.BMP demonstrates normal renal function and potassium. Sodium and Chloride consistent with prior labs. Will recheck BMP in 2 days. Placement continues to be an issue as patient has been denied at all facilities. Will reasses with CM on wednesday. 01/11: Emesis overnight. Do not suspect that she is obstructed as she had 2 BM reported. Will order Reglan prn, drop TF rate to goal of 30 cc/hr. Will continue to work on placement. 01/12: Per RN patient had reported that she was tired and did not want to persist in her current state of health. D/w patient Niraj at patient bedside and stated that I recommended the patient/family at least talk with hospice to get a better understanding of their care. He was agreeable. I spoke with Ms. Busby who will help set up referral for hospice service so that family can be educated and, if the patient chooses, can pursue this option. 01/13: Continue supportive care. Family discussing about hospice. Continue reinforcement and continue weaning as tolerated. Prognosis is guarded and poor. Patient is clinically stable to transfer to the next level of care has not required any escalation in management. Has been stable on the vent awake alert following commands. 01/14: [id number]. Considering abdominal distention tube feedings hold along with the fact that the patient vomited yesterday. Will obtain a CT abdomen and pelvis to further evaluate placement. Discussed with nursing staff. Awaiting to have a family conversation with the for goals of care discussion again. 01/15: Continue supportive care, tube feed was restarted yesterday and tolerated, will start on simethicone for gas control and management. Patient is clinically stable for all lower level of care and continued weaning from the ventilator to appropriate facility. Family still undecided about goals of care. We will also check labs intermittently. 01/16: Patient today went for Chest tube placement on the right side for recurrent pleural effusion, with the goal of evaluating to see if we can wean off the vent. She has remained on the vent and with some persistent anxiety. she continues to tolerate tube feed. Again poor prognosis discussed with family. 01/17: Status post chest tube, with output of approximately 1880 cc since placement. Will continue to work with pulmonology for vent weaning. 01/18: Only tolerated 1 hr of t piece trial yesterday per RT. Patient PaO2 50s on abg last night. Will continue to work with pulmonary medicine for vent weaning. abg, cbc, bmp, xr chest ordered for am. 01/19: On t piece trial this AM. labs reviewed. CXR reviewed and appears stable with no new changes. AB.42/47.8/112.3/30.9. Will follow pulmonary recommendations and plan to continue to wean off of vent. 01/20: Per CM, [facility] declined patient admission as there are T stated the patient was not amenable from the vent. Yesterday patient had tolerated T-piece trial for approximately 12 hours. Today patient only tolerated for 45 minutes. Had desatted and stated that she was in pain during today's trial. Output yesterday from chest tube 1000 cc. Today it is 100 cc thus far. Will obtain chest x-ray tomorrow. 01/21: XR chest demonstrate mild improvement in pulmonary edema. Chest tube OP: 400 cc on 01/20 and 450 cc thus far today. On CPAP trial this am. Hopefully patient can eventually be weaned off of vent. Placement continues to be a challenge as patient has been denied at all facilities thus far, working with CM who has been in frequent contact with [facility]. 01/22: Yesterday the patient had lasted approximately 10 hours on T-piece trial. Output from chest tube approximately 525 cc yesterday. Thus far today patient has had 400 cc. Will follow with pulmonology regarding overall plan for chest tube and weaning patient off ventilator. 01/23: chest tube output 838 cc. Follow pulmonology plan re: chest tube and vent weaning. Placement remains challenging. 01/24: Very fatigue on t - piece trial yesterday afternoon, placed on full MV support. Will re-attempt today poss. Patient will complete Vancomycin course for MRSA tx on Friday 01/26. She has been afebrile sine 01/02. Current barriers to placement are weaning patient off of ventilator and removing chest tube as thus far all facilities have declined the patient. 01/25: AM CXR shows worsening pulmonary edema. On t-piece trial this AM. Patient still continues to have output from chest tube. Will follow pulmonary recs today. 01/26: Difficulty breathing this AM. Chest tube OP approx 1L yesterday. Ordered Albumin due to hypotension noted this AM. Lasix 20 mg IV in addition to po lasix ordered for pulmonary edema. Labs ordered. 01/27: Antibiotics completed for MRSA bacteremia yesterday. Will start po bactrim for suppression per ID recommendation. Remains on MV support this AM. Blood pressure improved..actually hypertensive. Chest tube OP 50 cc yesterday. Metabolic profile noted, BUN slightly elevated but Cr in range. Can continue with lasix diuresis. Will likely need pleurx mcc at some point in place of the chest tube. long term acute care registered nurse prognosis remains guarded to poor. 01/28: Continue current ATP to vapotherm, agree with possible pluerex catheter for intermittent drainage/ following review of xray will trial Bumex for diuresis. Poor prognosis. 01/29: Patient seen and examined doing well diuresing appropriately with a change to Bumex therapy. Discussed with cord tire builder still with good volume output fluid overload will try to diurese over the weekend. We will check a chest x- ray in the morning to see improvement in the lungs and probably repeat on Wednesday. Anticipate discharge to SNF on Wednesday clinically she is improving likely will not need a Pleurx catheter on discharge. Prognosis remains guarded. 01/30: cxr shows unchanged, but clinically patient is stable, no increase oxygen demand, also negative fluid balance. Will continue bumex, monitor electrolytes and renal function, check cxr again on wednesday with anticipation to remove Chest tube soon and hopefully discharge to SNF on wednesday Neuro : Anxiety, chronic pain -Neurology consulted, appreciate recommendations -CT brain showed no acute events -EEG interpreted as abnormal record due to diffuse slowing noted throughout the recording, suggestive of encephalopathic process and/or drug effect, possibilities of postictal state cannot be totally excluded. Clinical correlation is in order -MRI brain not obtained-> patient has metal in her body -Repeat CT head with no acute findings -Reorientation as needed -Ammonia 42, B12 1823, TSH 1.5 -BuSpar, Seroquel, [place], gabapentin -prn xanax and Dilaudid Cardio: Acute Heart failure with reduced EF, h/o chronic heart block s/p PPM, HTN, CAD s/p PCI (2004), Moderate pulmonary HTN, cardiomyopathy -s/p vasopressor support with levophed -11/04 echocardiogram shows EF 30 to 35%, Moderate pulmonary HTN RVSP 49 -12/19 echo with 35-40% EF -Cardiology consulted, appreciate recommendations -Continue beta-charleen and statin therapy -Midodrine (titrate as needed) -Not on aspirin due to allergy -Blood pressure monitoring per protocol -As needed nitroglycerin Resp: Acute hypoxic respiratory failure secondary to bilateral pneumonia, recurrent bilateral pleural effusion s/p rt sided chest tube. Right pneumothorax (resolved). -COVID-19 PCR negative -Intubated on 11/06 with 6.00 ETT at 18 at the lip and changed over bougie on 11/11-7.50 ETT at 20 at the lip -See RT notes for titration -PSV as tolerated -Surgery consult for trach -Received trach/PEG on 11/26 -S/p bedside bronchoscopy on 11/11 complicated by pneumothorax -S/p chest tube placement for right pneumothorax and dislodgment by patient on 11/15 -ABG/CXR per [facility] -VAP bundle -Right chest wall ultrasound showed pleural effusion s/p chest tube -12/11 US thoracentesis removed 1L fluid -12/29 US thoracentesis removed 1.4L fluid -01/06 thoracentesis planned -01/16 right-sided chest tube placed by IR -SPO2 monitoring GI: S/p GI bleed, duodenal ulcer, transaminitis -GI consulted, appreciate recommendations-signed off -Nutrition consult for tube feeding, currently on nepro TF 45 cc/hr, dropped to 30 cc/hr due to concerns for emesis. -BR: Senokot -s/p peg 11/26 -H2 charleen -Carafate -24-hour +428 ml -10/2021 Gastric occult positive -> EGD-> duodenal ulcer -12/14 occult stool positive - reglan prn. : Urinary retention (resolved), hyponatremia, hypochloremia -Strict intake and output -Trend BMP ID: Septic shock (POA-resolved), bilateral pneumonia, MRSA bacteremia/pna -Infectious disease consulted, appreciate recommendations -COVID-19 PCR negative -Presented with fevers, leukocytosis and hypotension -11/04 blood cultures positive with a group B strep bacteremia 12/19 however repeat blood cultures on the with no growth to date -Echo showed no evidence of vegetation -repeat echo showed EF 35-40 % with no vegetations -ABX therapy: IV vancomycin for 4 weeks (12/16-01/26) -Monitor WBC and fever curve -Bedside bronchoscopy for mucous plug on CXR 11/11 -f/u blood cultures Heme: Acute DVT in the right external iliac vein, common femoral vein, superior aspect of femoral vein, Acute microcytic anemia -Evidenced on bilateral upper lower extremity ultrasound -S/p 7 unit PRBC -Trend CBC -Transfuse for hemoglobin less than 7 -heparin gtt dc d/t anemia -S/p IVC filter Endo: h/o DM and hypothyroidism -Continue home Synthroid -SSI -Accu-Cheks every 6 -Avoid hypoglycemia History Interval history: Patient seen and examined, resting comfortable. Still with good Hospitalist Physical - Physical exam Narrative exam: VITAL SIGNS: Reviewed. GENERAL: The patient appears normally developed, ATP to vapotherm, vital signs as documented. Frail appearing elderly woman. HEAD: No signs of head trauma. EYES: Pupils are equal. Extraocular motions intact. EARS: Hearing grossly intact. MOUTH: Oropharynx is normal. NECK: No adenopathy, no JVD. Trach to VAPOTHERM CHEST: Bl rhonchi, right sided chest tube CARDIAC: Regular rate and rhythm. S1 and S2, without murmurs, gallops, or rubs. VASCULAR: No Edema. Peripheral pulses normal and equal in all extremities. ABDOMEN: Soft, non tender and mildly distended. No rebound or guarding, and no masses palpated. Bowel Sounds normal. MUSCULOSKELETAL: Good range of motion of all major joints. Extremities without clubbing, cyanosis or edema. NEUROLOGIC EXAM: Alert and oriented x 3. Holding her paper and writing, No focal sensory or strength deficits. PSYCHIATRIC: stable SKIN: detail exam as documented in skin assessment - Constitutional Vitals: Temp Pulse Resp BP Pulse Ox 98.0 F 65 13 126/60 99 01/30/22 03:46 01/30/22 06:00 01/30/22 06:00 01/30/22 06:00 01/30/22 08:00 General appearance: Present: no acute distress HEART Score - HEART Score Troponin: Troponin T 0.078 ng/mL (0.00-0.029) H 01/15/22 Unknown Results - Labs CBC & Chem 7: 01/26/22 10:16 01/29/22 04:40 Labs: Laboratory Last Values WBC 12.7 K/mm3 (4.5-11.0) H 01/26/22 10:16 RBC 3.74 M/mm3 (3.65-5.03) 01/26/22 10:16 Hgb 9.9 gm/dl (10.1-14.3) L 01/26/22 10:16 Hct 31.1 % (30.3-42.9) 01/26/22 10:16 MCV 83 fl (79-97) 01/26/22 10:16 MCH 27 pg (28-32) L 01/26/22 10:16 MCHC 32 % (30-34) 01/26/22 10:16 RDW 18.3 % (13.2-15.2) H 01/26/22 10:16 Plt Count 269 K/mm3 (140-440) 01/26/22 10:16 Lymph % (Auto) 25.6 % (13.4-35.0) 01/26/22 10:16 [place] % (Auto) 4.5 % (0.0-7.3) 01/26/22 10:16 Eos % (Auto) 4.5 % (0.0-4.3) H 01/26/22 10:16 Baso % (Auto) 0.7 % (0.0-1.8) 01/26/22 10:16 Lymph # (Auto) 3.2 K/mm3 (1.2-5.4) 01/26/22 10:16 [place] # (Auto) 0.6 K/mm3 (0.0-0.8) 01/26/22 10:16 Eos # (Auto) 0.6 K/mm3 (0.0-0.4) H 01/26/22 10:16 Baso # (Auto) 0.1 K/mm3 (0.0-0.1) 01/26/22 10:16 Add Manual Diff Complete 01/19/22 04:50 Total Counted 100 01/15/22 14:36 Seg Neutrophils % 64.7 % (40.0-70.0) 01/26/22 10:16 Seg Neuts % (Manual) 82.0 % (40.0-70.0) H 01/15/22 14:36 Band Neutrophils % 0 % 01/15/22 14:36 Lymphocytes % (Manual) 11.0 % (13.4-35.0) L 01/15/22 14:36 Reactive Lymphs % (Man) 0 % 01/15/22 14:36 Monocytes % (Manual) 5.0 % (0.0-7.3) 01/15/22 14:36 Eosinophils % (Manual) 1.0 % (0.0-4.3) 01/15/22 14:36 Basophils % (Manual) 1.0 % (0.0-1.8) 01/15/22 14:36 Metamyelocytes % 0 % 01/15/22 14:36 Myelocytes % 0 % 01/15/22 14:36 Promyelocytes % 0 % 01/15/22 14:36 Blast Cells % 0 % 01/15/22 14:36 Nucleated RBC % Not Reportable 01/15/22 14:36 Seg Neutrophils # 8.2 K/mm3 (1.8-7.7) H 01/26/22 10:16 Seg Neutrophils # Man 8.8 K/mm3 (1.8-7.7) H 01/15/22 14:36 Band Neutrophils # 0.0 K/mm3 01/15/22 14:36 Lymphocytes # (Manual) 1.2 K/mm3 (1.2-5.4) 01/15/22 14:36 Abs React Lymphs (Man) 0.0 K/mm3 01/15/22 14:36 Monocytes # (Manual) 0.5 K/mm3 (0.0-0.8) 01/15/22 14:36 Eosinophils # (Manual) 0.1 K/mm3 (0.0-0.4) 01/15/22 14:36 Basophils # (Manual) 0.1 K/mm3 (0.0-0.1) 01/15/22 14:36 Metamyelocytes # 0.0 K/mm3 01/15/22 14:36 Myelocytes # 0.0 K/mm3 01/15/22 14:36 Promyelocytes # 0.0 K/mm3 01/15/22 14:36 Blast Cells # 0.0 K/mm3 01/15/22 14:36 WBC Morphology Not Reportable 01/15/22 14:36 Hypersegmented Neuts Not Reportable 01/15/22 14:36 Hyposegmented Neuts Not Reportable 01/15/22 14:36 Hypogranular Neuts Not Reportable 01/15/22 14:36 Smudge Cells Not Reportable 01/15/22 14:36 Toxic Granulation Not Reportable 01/15/22 14:36 Toxic Vacuolation Not Reportable 01/15/22 14:36 Dohle Bodies Not Reportable 01/15/22 14:36 Pelger-Huet Anomaly Not Reportable 01/15/22 14:36 Irina Rods Not Reportable 01/15/22 14:36 Platelet Estimate Consistent w auto 01/15/22 14:36 Clumped Platelets Not Reportable 01/15/22 14:36 Plt Clumps, EDTA Not Reportable 01/15/22 14:36 Large Platelets Not Reportable 01/15/22 14:36 Giant Platelets Not Reportable 01/15/22 14:36 Platelet Satelliting Not Reportable 01/15/22 14:36 Plt Morphology Comment Not Reportable 01/15/22 14:36 RBC Morphology Not Reportable 01/15/22 14:36 Dimorphic RBCs Not Reportable 01/15/22 14:36 Polychromasia Not Reportable 01/15/22 14:36 Hypochromasia Not Reportable 01/15/22 14:36 Poikilocytosis Not Reportable 01/15/22 14:36 Anisocytosis 1+ 01/15/22 14:36 Microcytosis Not Reportable 01/15/22 14:36 Macrocytosis Not Reportable 01/15/22 14:36 Spherocytes Not Reportable 01/15/22 14:36 Pappenheimer Bodies Not Reportable 01/15/22 14:36 Sickle Cells Not Reportable 01/15/22 14:36 Target Cells Not Reportable 01/15/22 14:36 Tear Drop Cells Not Reportable 01/15/22 14:36 Ovalocytes Not Reportable 01/15/22 14:36 Helmet Cells Not Reportable 01/15/22 14:36 [place] Bodies Not Reportable 01/15/22 14:36 [place] Rings Not Reportable 01/15/22 14:36 Powers Cells Not Reportable 01/15/22 14:36 Bite Cells Not Reportable 01/15/22 14:36 Crenated Cell Not Reportable 01/15/22 14:36 Elliptocytes Not Reportable 01/15/22 14:36 Acanthocytes (Spur) Not Reportable 01/15/22 14:36 Rouleaux Not Reportable 01/15/22 14:36 Hemoglobin C Crystals Not Reportable 01/15/22 14:36 Schistocytes Not Reportable 01/15/22 14:36 Malaria parasites Not Reportable 01/15/22 14:36 Godfrey Bodies Not Reportable 01/15/22 14:36 Hem Pathologist Commnt No 01/15/22 14:36 PT 16.9 Sec. (12.2-14.9) H 01/06/22 04:06 INR 1.23 (0.87-1.13) H 01/06/22 04:06 APTT 29.2 Sec. (24.2-36.6) 11/26/21 05:00 D-Dimer 2655.00 ng/mlDDU (0-234) H 11/11/21 04:28 ABG pH 7.488 pH Units (7.350-7.450) H 01/25/22 12:20 ABG pCO2 38.2 mm Hg 01/25/22 12:20 ABG pO2 58.9 mm Hg (80.0-90.0) L 01/25/22 12:20 ABG HCO3 28.3 mmol/L (20.0-26.0) H 01/25/22 12:20 ABG O2 Saturation 94.9 % (95.0-99.0) L 01/25/22 12:20 ABG O2 Content 11.4 (0.0-44) 01/25/22 12:20 ABG Base Excess 4.7 mmol/L (-2.0-3.0) H 01/25/22 12:20 ABG Hemoglobin 8.7 gm/dl (12.0-16.0) L 01/25/22 12:20 ABG Carboxyhemoglobin 1.8 % (0.0-5.0) 01/25/22 12:20 ABG Methemoglobin 0.5 % (0.0-1.5) 01/25/22 12:20 Oxyhemoglobin 92.7 % (95.0-99.0) L 01/25/22 12:20 FiO2 35 % 01/25/22 12:20 Sodium 137 mmol/L (137-145) 01/29/22 04:40 Potassium 4.1 mmol/L (3.6-5.0) 01/29/22 04:40 Chloride 95.9 mmol/L (98-107) L 01/29/22 04:40 Carbon Dioxide 29 mmol/L (22-30) 01/29/22 04:40 Anion Gap 16 mmol/L 01/29/22 04:40 BUN 36 mg/dL (7-17) H 01/29/22 04:40 Creatinine 0.6 mg/dL (0.6-1.2) 01/29/22 04:40 Estimated GFR > 60 ml/min 01/29/22 04:40 BUN/Creatinine Ratio 60 % 01/29/22 04:40 Glucose 127 mg/dL (65-100) H 01/29/22 04:40 POC Glucose 109 mg/dL (70-105) H 01/30/22 05:29 Lactic Acid 3.70 mmol/L (0.7-2.0) H* 11/03/21 22:32 Calcium 8.8 mg/dL (8.4-10.2) 01/29/22 04:40 Phosphorus 4.00 mg/dL (2.5-4.5) 01/26/22 10:16 Magnesium 1.70 mg/dL (1.7-2.3) 01/26/22 10:16 Ferritin 52.6 ng/mL (10.0-200.0) 11/05/21 06:11 Total Bilirubin 0.50 mg/dL (0.1-1.2) 11/17/21 05:56 Direct Bilirubin < 0.2 mg/dL (0-0.2) 11/11/21 04:28 Indirect Bilirubin 0.1 mg/dL 11/11/21 04:28 AST 36 units/L (5-40) 11/17/21 05:56 ALT 47 units/L (7-56) 11/17/21 05:56 Alkaline Phosphatase 107 units/L (35-129) 11/17/21 05:56 Ammonia 42.0 umol/L (25-60) 11/10/21 14:08 Lactate Dehydrogenase 187 units/L (91-180) H 11/05/21 06:11 Troponin T 0.078 ng/mL (0.00-0.029) H 01/15/22 Unknown C-Reactive Protein 22.20 mg/dL (0.00-1.30) H 11/05/21 06:11 NT-Pro-B Natriuret Pep 7895 pg/mL (0-900) H 11/03/21 22:32 Total Protein 5.1 g/dL (6.3-8.2) L 11/17/21 05:56 Albumin 2.2 g/dL (3.9-5) L 11/17/21 05:56 Albumin/Globulin Ratio 0.8 % 11/17/21 05:56 Triglycerides 72 mg/dL (2-149) 01/15/22 21:07 Cholesterol 103 mg/dL (50-199) 01/15/22 21:07 LDL Cholesterol Direct 44 mg/dL (50-130) L 01/15/22 21:07 HDL Cholesterol 46 mg/dL (40-59) 01/15/22 21:07 Cholesterol/HDL Ratio 2.23 % 01/15/22 21:07 Vitamin B12 1823 pg/mL (211-911) H 11/10/21 14:08 TSH 1.510 mlU/mL (0.270-4.200) 11/10/21 14:08 Urine Color [place] (Yellow) 01/23/22 09:36 Urine Turbidity Turbid (Clear) 01/23/22 09:36 Urine pH 7.0 (5.0-7.0) 01/23/22 09:36 Ur Specific [place] 1.011 (1.003-1.030) 01/23/22 09:36 Urine Protein <15 mg/dl mg/dL (Negative) 01/23/22 09:36 Urine Glucose (UA) Neg mg/dL (Negative) 01/23/22 09:36 Urine Ketones Neg mg/dL (Negative) 01/23/22 09:36 Urine Blood Sm (Negative) 01/23/22 09:36 Urine Nitrite Neg (Negative) 01/23/22 09:36 Urine Bilirubin Neg (Negative) 01/23/22 09:36 Urine Urobilinogen 2.0 mg/dL (<2.0) 01/23/22 09:36 Ur Leukocyte Esterase Lg (Negative) 01/23/22 09:36 Urine WBC (Auto) 16.0 /HPF (0.0-6.0) H 01/23/22 09:36 Urine RBC (Auto) 32.0 /HPF (0.0-6.0) 01/23/22 09:36 U Epithel Cells (Auto) 1.0 /HPF (0-13.0) 01/23/22 09:36 Urine Bacteria (Auto) 4+ /HPF (Negative) 01/23/22 09:36 Urine Mucus Few /HPF 01/23/22 09:36 Urine Yeast (Budding) 3+ /HPF 01/23/22 09:36 Urine Sperm Few /HPF ([employer] BLINDSTITCH) 01/23/22 09:36 Fluid Type Pleural 01/06/22 13:40 Fluid Color Yellow 01/06/22 13:40 Fluid Appearance Hazy 01/06/22 13:40 Fluid WBC 273 /mm3 01/06/22 13:40 Fluid RBC 45 /mm3 01/06/22 13:40 Fluid Seg Neutrophils 47.0 % 01/06/22 13:40 Fluid Lymphocytes 22.0 % 01/06/22 13:40 Fluid Monocytes 10.0 % 01/06/22 13:40 Fluid Eosinophils 19.0 % 01/06/22 13:40 Fluid Basophils 2.0 % 01/06/22 13:40 Fluid Glucose 96 mg/dL (40-70) H 01/06/22 13:40 Fluid Total Protein < 3.0 (15.0-45.0) L 01/06/22 13:40 Fluid LDH 149 01/06/22 13:40 Vancomycin Trough 11.8 ug/mL (5.0-20.0) 01/22/22 10:14 Random Vancomycin 10.5 ug/mL (0-40.0) 01/04/22 05:00 Coronavirus (PCR) Negative (Negative) 11/10/21 08:30 Blood Type O POSITIVE 12/14/21 10:30 Antibody Screen Negative 12/14/21 10:30 Crossmatch See Detail 12/14/21 10:30 Gamble/IV: Voiding Method External Female Catheter Active Medications - Current Medications Current Medications: Generic Name Dose Route Start Last Admin Trade Name Freq PRN Reason Stop Dose Admin Acetaminophen 650 mg 12/14/21 04:12 01/26/22 03:19 Acetaminophen 325 Mg/10.15 Ml Oral Liqd Unit Dose FEEDTUBE 650 mg Q6H PRN Administration Non Cardiac Pain or Temp>100.5 Hydrocodone Bitart/Acetaminophen 1 each 11/21/21 10:00 01/29/22 20:29 Hydrocodone/Acetaminophen 10-325mg Tab FEEDTUBE 1 each TID YOSSI Administration Alprazolam 0.25 mg 01/22/22 03:00 01/28/22 05:07 Alprazolam 0.5 Mg Tab FEEDTUBE 0.25 mg Q8H PRN Administration Agitation Lipase/Protease/Amylase 1 each 11/08/21 11:09 Lipase 10,500/Protease 25,000/Amylase 43,750 (Units) Dr Lema FEEDTUBE PRN PRN For Clogged Feeding Tube Bumetanide 1 mg 01/28/22 10:00 01/29/22 10:07 Bumetanide 1 Mg/4 Ml Inj IV 02/02/22 09:59 1 mg DAILY YOSSI Administration Buspirone HCl 7.5 mg 12/30/21 10:00 01/29/22 21:40 Buspirone 5 Mg Tab FEEDTUBE 7.5 mg BID YOSSI Administration Dextrose 50 ml 01/16/22 14:00 Dextrose 50% In Water (25gm) 50 Ml Syringe IV Q30MIN PRN Hypoglycemia Protocol Docusate Sodium 100 mg 12/30/21 10:00 01/29/22 21:40 Docusate Sodium 100 Mg/10 Ml Oral Liqd FEEDTUBE 100 mg BID YOSSI Administration Gabapentin 100 mg 01/22/22 10:00 01/29/22 10:13 Gabapentin 500 Mg/10 Ml Oral Liqd FEEDTUBE 100 mg QDAY YOSSI Administration Hydrophilic Ointment 1 applic 11/06/21 04:02 Lip Therapy Vaseline TP Q2HR PRN Dry Lips Lansoprazole 30 mg 11/24/21 22:00 01/29/22 21:41 Lansoprazole 30 Mg Solutab FEEDTUBE 30 mg BID YOSSI Administration Levothyroxine Sodium 125 mcg 12/31/21 06:00 01/30/22 06:07 Levothyroxine 125 Mcg Tab FEEDTUBE 125 mcg DAILY@0600 YOSSI Administration Melatonin 5 mg 12/05/21 22:00 01/29/22 21:41 Melatonin 5 Mg Tab PO 5 mg QHS YOSSI Administration Metoclopramide HCl 10 mg 01/11/22 13:25 01/21/22 21:43 Metoclopramide 10 Mg/2 Ml Inj IV 10 mg Q6H PRN Administration Nausea And Vomiting Metoprolol Tartrate 6.25 mg 12/30/21 10:00 01/29/22 21:41 Metoprolol Tartrate 25 Mg Tab FEEDTUBE 6.25 mg BID YOSSI Administration Midodrine 10 mg 01/21/22 08:00 01/29/22 15:43 Midodrine 5 Mg Tab FEEDTUBE 10 mg TID@0800,1200,1600 YOSSI Administration Multi-Ingred Cream/Lotion/Oil/Oint 1 applic 11/06/21 04:02 Mineral Oil/Petrolatum, White Ophth Oint 3.5 Gm OU Q4HR PRN Dry Eye(s) Ondansetron HCl 4 mg 12/05/21 10:00 01/20/22 22:10 Ondansetron 4 Mg/2 Ml Inj IV 4 mg Q8H PRN Administration Nausea And Vomiting Polyethylene Glycol 17 gm 12/30/21 10:00 01/29/22 10:09 Polyethylene Glycol 3350 17 Gm Powder FEEDTUBE Not Given QDAY [facility] Pravastatin Sodium 20 mg 12/30/21 22:00 01/29/22 21:41 Pravastatin 20 Mg Tab FEEDTUBE 20 mg QHS YOSSI Administration Quetiapine Fumarate 25 mg 12/30/21 10:00 01/29/22 10:07 Quetiapine 25 Mg Tab FEEDTUBE 25 mg QAM YOSSI Administration Quetiapine Fumarate 50 mg 12/30/21 22:00 01/29/22 21:41 Quetiapine 25 Mg Tab FEEDTUBE 50 mg QHS YOSSI Administration Senna 17.6 mg 12/29/21 11:00 01/29/22 21:41 Sennosides Oral Liqd 8.8 Mg/5 Ml Oral Liqd FEEDTUBE 17.6 mg Q12HR YOSSI Administration Simethicone 80 mg 01/15/22 15:06 01/15/22 21:10 Simethicone 80 Mg Chew Tab PO 80 mg PC PRN Administration Gas pain Simple Syrup 15 ml 11/08/21 11:09 Simple Syrup 15 Ml FEEDTUBE PRN PRN Hypoglycemia Simple Syrup 30 ml 11/08/21 11:09 Simple Syrup 15 Ml FEEDTUBE PRN PRN Hypoglycemia Sodium Bicarbonate 325 mg 11/08/21 11:09 01/09/22 20:25 Sodium Bicarbonate 325 Mg Tab FEEDTUBE 325 mg PRN PRN Administration For Clogged Feeding Tube Sodium Chloride 10 ml 11/04/21 10:00 01/29/22 21:42 Sodium Chloride 0.9% 10 Ml Flush Syringe IV 10 ml BID YOSSI Administration Sodium Chloride 10 ml 11/04/21 02:03 01/09/22 06:35 Sodium Chloride 0.9% 10 Ml Flush Syringe IV 10 ml PRN PRN Administration LINE FLUSH Spironolactone 25 mg 12/30/21 10:00 01/29/22 10:07 Spironolactone 25 Mg Tab FEEDTUBE 25 mg QDAY YOSSI Administration Sucralfate 1 gm 12/30/21 12:00 01/30/22 06:07 Sucralfate 1 Gm/10 Ml Oral Liqd FEEDTUBE 1 gm Q6HR YOSSI Administration Trazodone HCl 50 mg 12/04/21 22:00 01/29/22 21:40 Trazodone 50 Mg Tab PO 50 mg QHS YOSSI Administration Trimethoprim/Sulfamethoxazole 160 mg 01/27/22 13:00 01/29/22 10:07 Sulfamethoxazole/Trimethoprim 200-40 Mg/5 Ml Oral Liqd 30 Ml PO 160 mg Q24HR YOSSI Administration Protocol Nutrition/Malnutrition Assess - Dietary Evaluation Nutrition/Malnutrition Findings: Nutrition Notes Start: 11/04/21 17:16 Freq: Status: Active Protocol: Document 01/26/22 14:39 NHALL (Rec: 01/26/22 14:45 YOVANI [email or web address]) Nutrition Notes Initial or Follow up Reassessment Current Diagnosis Coronary Artery Disease, Diabetes,Hypertension,Heart Failure,Respiratory Failure Other Pertinent Diagnosis Bilat pleural effusion Current Diet TF - Vital AF 1.2 at 35ml/hr Labs/Tests Reviewed Pertinent Medications 25% Human albumin x 1 dose, Lasix x 1 dose Height 5 ft Weight 62.6 kg [place] Body Weight (kg) 45.45 BMI 26.9 Weight Status Overweight Subjective/Other Information Pt tolerating TF at goal rate. Pt remains on T-piece trials , however, was on vent support at time of visit today; chest tube still in place with substantial output. Percent of energy/protein needs met: 84% energy and pro Burn Absent Trauma Absent #2 Nutrition Diagnosis Inadequate enteral nutrition infusion #1 Nutrition Diagnosis Inadequate oral intake Diagnosis Progress(for reassessment Continues documentation) Is patient on ventilator? Yes Is Patient Ambulatory and/or Out of Bed No REE-([facility]-confined to bed) 1210.212 Calculation Used for Recommendations [facility] Additional Notes Pro needs 1.2-2g/k-125g/ day Fluid needs 1ml/kcal Nutrition Intervention Nutrition Support: Continue Vital AF 1.2 at 35ml/ hr with 50ml water flush q4h. Kcal 1,008 Protein (gm) 63 Carbohydrates (gm) 45 Fat (gm) 45 Fluid (mL) 681 Fiber (gm) 4 Add Supplement/Snack (indicate name/kcal Jaswant BID /protein ) Provides kCal: 190 Provides Protein (gm) 5 Goal #1 TF tolerance Goal #2 TF to meet at least 75% energy and pro needs Goal #3 Wound healing Follow-Up By: 02/02/22 Additional Comments F/U: stable TF, wt, vent status, wound healing/Jaswant administration
[2022-01-30] MEDS: MELATONIN 5 MG TAB PO SCH (22:20)
[2022-01-30] MEDS: traZODone 50 MG TAB PO SCH (22:21)
[2022-01-30] MEDS: PRAVASTATIN 20 MG TAB FEEDTUBE SCH (22:21)
[2022-01-31] MEDS: ALPRAZolam 0.5 MG TAB FEEDTUBE PRN ×2 (02:40→21:05)
[2022-01-31 04:50] LABS: Blood Urea Nitrogen 41 mg/dL (7-17); Calcium 8.8 mg/dL (8.4-10.2); Hemolysis Index 3
[2022-01-31 04:54] LABS: BUN/Creatinine Ratio 59
[2022-01-31] MEDS: SUCRALFATE 1 GM/10 ML ORAL LIQD FEEDTUBE SCH ×3 (05:32→17:40)
[2022-01-31] MEDS: LEVOTHYROXINE 125 MCG TAB FEEDTUBE SCH (05:32)
[2022-01-31] MEDS: MIDODRINE 5 MG TAB FEEDTUBE SCH ×3 (08:49→15:50)
[2022-01-31] MEDS: HYDROcodone/ACETAMINOPHEN 10-325MG TAB FEEDTUBE SCH ×3 (08:50→20:53)
[2022-01-31] MEDS: SULFAMETHOXAZOLE/TRIMETHOPRIM 200-40 MG/5 ML ORAL LIQD 30 ML PO SCH (09:58)
[2022-01-31] MEDS: DOCUSATE SODIUM 100 MG/10 ML ORAL LIQD FEEDTUBE SCH ×2 (09:58→21:06)
[2022-01-31] MEDS: SENNOSIDES ORAL LIQD 8.8 MG/5 ML ORAL LIQD FEEDTUBE SCH ×2 (09:59→21:08)
[2022-01-31] MEDS: METOPROLOL TARTRATE 25 MG TAB FEEDTUBE SCH ×2 (09:59→21:07)
[2022-01-31] MEDS: LANSOPRAZOLE 30 MG SOLUTAB FEEDTUBE SCH ×2 (10:00→21:05)
[2022-01-31] MEDS: SPIRONOLACTONE 25 MG TAB FEEDTUBE SCH (10:00)
[2022-01-31] MEDS: busPIRone 5 MG TAB FEEDTUBE SCH ×2 (10:00→21:05)
[2022-01-31] MEDS: QUEtiapine 25 MG TAB FEEDTUBE SCH ×2 (10:00→21:05)
[2022-01-31] MEDS: POLYETHYLENE GLYCOL 3350 17 GM POWDER FEEDTUBE SCH (10:01)
[2022-01-31] MEDS: BUMETANIDE 1 MG/4 ML INJ IV SCH (10:01)
--- NOTE | 2022-01-31 10:31 | Progress Note ---
Assessment and Plan Assessment and plan: This is an 82-year-old female with DM, HTN , CHB s/p PPM, CAD s/p PCI and arthritis who presented to the emergency department on 11/04 for shortness of breath ongoing for the past 3 days, cough and according to family a fever of 102.2. Upon arrival of EMS patient was found to be tachypneic and hypoxic with SPO2 of 76% on room air which later improved to 88% on nonrebreather. Work-up in the emergency department included a CXR which showed bilateral interstitial pulmonary edema with bilateral pleural effusions and bibasilar opacities, leukocytosis and anemia with a hemoglobin of 6.1. Patient was admitted to the hospitalist service with acute anemia, acute hypoxic respiratory failure, bilateral pneumonia and COVID-19 PUI with consults to pulmonology, infectious disease and later cardiology. Patient was eventually intubated in the emergency department on 11/06. Hospital Course to date: 11/04/2021: Empiric therapy with iv levaquin/vancomycin. COVID PCR pending. Will consult ID. PCCM consulted, will follow recs. Hypotensive this AM, ordered bolus and fluids at 150 cc/hr. May require pressor support if bp does not improve. 11/05/2021: GBS on bcx +, currently on rocephin IV. Currently on bipap due to respiratory distress overnight. Worsening BL opacities on CXR. May be volume overload vs pneumonia. Unfortunately bp too low for lasix at this point. WIll continue levophed and bipap. Once able to tolerate, may do trial of albumin/lasix. Call attempt made to Niraj, no response. Will try again tomorrow to update. 11/06/2021: Decompensated overnight requiring intubation. CXR shows worsening interstitial infiltrates. Currenlty on dopamine, levophed, vasopressin. PICC line ordered. Advised RN to place gamble for I/O monitoring. Would benefit from diuresis but very volume overloaded. Prognosis guarded 11/08: Off sedation this am, remains unresponsive only grimace to pain. Hold all sedatives agents for now, patient is off pressors this am. Hypernatremia from today's lab- D5W X1bag, and low K repleted, repeat lab in the am. Severe constipation also noted from KUB, BR added. 11/09: Sudden SPO2 drop in the 60s this am. Patient was manually bagged and deep suctioned. Patient is currently stable on the vent, repeat CXR with no significant change. D/w CCM Mucomyst and brochodilator added. Patient mentation is unchanged, continue to hold off on sedative agents. Neurology consulted. 11/10: Acute DVT noted on bilateral lower extremity Doppler ultrasound therefore she was started on Lovenox treatment dose. Failed SBT. Hypernatremia and hyperchloremia noted, free water flush adjusted. 11/11: Patient noted to be febrile with increasing of the cytosis, UA/BC sent and CXR ordered. ID escalated antibiotics to cefepime. CXR demonstrated mucous plug, bedside bronchoscopy was performed and O ETT was changed over bougie from 6 cm to 7.5. Patient was noted to have a pneumothorax postprocedure and chest tube was placed. Family updated by [facility]. Free water flush increased and will add Jaswant supplementation. 11/12: Patient not noted to follow commands, hypernatremia worsen/persist, increasing free water flush, potassium and magnesium and phosphorus repleted. Hemoglobin noted to be 7./24.5 from 7.03/12 yesterday. We will continue to trend and monitor. Vent changes per [facility]. Repeat CXR showed no residual pneumothorax. Consider waterseal tomorrow. Given persistent leukocytosis antibiotics escalated to cefepime per ID. 11/13: Remains on cefepime and vancomycin, vent changes per [facility]. Anemia noted and given 1 unit PRBC. And beta-charleen held in setting of Levophed drip infusing. Remains on fentanyl drip. 11/14: Patient put on CPAP trial by [facility], will continue chest tube until after extubation. Will rest on assist control. CT brain was cancelled by grade school teacher and reordered. 11/15: Patient removed chest tube overnight. Will obtain cxr. remains on low dose levo. CTH completed with no acute findings. RT to place on CPAP. 11/16: Hypernatremia/hyperchloremia noted on the increase of day water flushes. Anemia noted and ordered PRBC. asked RT to place on cpap but not done yet 11/17: Patient remains on the vent, awake and following commands. H&H stable s/p 2units PRBCs. GI on consult, no intervention at this time. Will continue protonix gtt and serial H&H Q6hrs. Keep patient NPO for now, D5w added for hypernatremia and NPO status. Plan for IVC filter placement today by Vascular. 11/18: Patient is s/p IVC filter. H&H continue to trend down, hbg 6.1 this am, 1 unit of PRBCs ordered. Plan for possible EGD today by GI. Keep patient NPO, continue PPI drip and serial H&H Q6hrs. Electrolytes repleted, repeat lab in the am 11/19: S/p EGD- larger duodenal ulcer noted, see operative note. GI recommendations noted also noted. H&H stable this am. Keep patient on protonix gtt for now. Will keep patient NPO, continue IVF and serial H&H for now. Electrolytes repleted, repeat labs in the am 11/20: Very agitated and restless this am, fentanyl gtt resumed. Patient remains on protonix gtt, H&H remains stable. Will switch protonix gtt to IV BID, continue carafate and okay to resume meds at this time. Will F/u with GI to see if TF can be resumed. Gamble was reinserted overnight for retention. Electrolytes repleted, repeat in the am. Plan for possible PST today for possible extubation per CCM. 11/21: Patient is now on seroquel and patient's home buspar resumed. Patient more calm this morning, fentanyl gtt is off. H&H remains stable and patient is tolerating TF. Patient had a runs of Vtach/PVCs this am, BB added per Cardio. Continue daily PS and wean trial for possible extubation. 11/22: Back on fentanyl gtt overnight , RASS o to -1, following commands. Patient failed PST this am due to increased work of breathing and low SPO2, ABG pending. Patient is also with worsen pitting edema, lasix is still on hold. Will discuss with cardio and CCM to possibly resume lasix. 11/23: MARIA DEL CARMEN overnight. Patient failed PST again this am. Per CCM plan for possible trach and PEG, hold off on IV lasix for now. General surgery consulted and family is aware of possible Trach and PEG. 11/24: Trach/PEG pending this week, continue SBT/SAT as tolerated. No acute events reported overnight. 11/25: Patient was n.p.o. overnight and will remain n.p.o. tonight for trach/PEG tomorrow morning. She failed to support trial again. KUB obtained due to distended belly. 11/26: Patient scheduled for tracheostomy and PEG tube placement today, has been n.p.o. since midnight. No acute events reported overnight. [facility] ordered simethicone scheduled. 11/27: No acute events reported overnight, patient received trach/PEG yesterday. Has been on feedings since last night. Still awaiting LTAC placement. 11/28: Patient magnesium repleted, repeat a.m. labs, SBT 11/29: Patient complains of chest pain but ECG obtained which showed no acute findings, ordered troponin. Patient failed CPAP yesterday and was trialed again today. levophed was restarted but will aggressively wean 11/30: Patient failed SBT. Continue supportive care. Started gabapentin today 12/01: MARIA DEL CARMEN overnight. Continue daily PST. Case management to arrange possible placement 12/02: Report of dark stools overnight, patient is hemodynamically stable. H&H stable, patient is on PPI. Will continue to trend H&H. Continue daily PST as tolerated. Awaiting LTAC vs SNF placement. 12/03: Hypotensive overnight, requiring low dose pressors. S/p X3 days of gentle diurese. Will continue to monitor, wean off pressors as tolerated for MAP of 65. Patient Failed PST yesterday, case management to follow up with insurance for possible LTAC placement. Continue daily PST as tolerated. PT eval and treat ordered. 12/04: Increased agitation and anxiety overnight, remains on buspar and seroquel, trazadone added to promote rest. Patient is now working with PT, keep patient engage and awake during the day so she can rest at night. No BM for over 5 days, BR was adjusted. Patient did not tolerate PST again yesterday, continue daily PST as tolerated. Continue to titrate pressor for MAP above 65. Pending possible LTAC placement, case management to arrange. 12/05: Still not getting much rest overnight, will add melatonin for sleep. Continue to engage patient during the day and promote rest at night. TF was held due to concern for possible bleeding, H&H remains stable and stools normal this am. Resume TF and continue PPI and carafate. Remains on low dose levophed, titrate as tolerated. Continue daily PST. Possible LTAC placement, awaiting approval. 12/06: MARIA DEL CARMEN overnight. Patient rested overnight. Continue supportive measures. Daily PST as tolerated. Awaiting possible LTAC placement 12/07: MARIA DEL CARMEN overnight. Plan for Tpiece trial today. Continue current supportive measures. Possible LTAC placement 12/08: Patient placed on pressure support trial again today, started on Xanax, no acute events reported overnight. Awaiting insurance approval for LTAC. 12/09: Levophed discontinued, LTAC transfer denied, started on midodrine and Lasix, ultrasound chest pending, started on Xanax 0.[address] De León updated family at bedside today. Started on Dilaudid every 3 hours as needed. 12/10: Patient placed on CPAP trial this morning, no acute events reported overnight. Will order ultrasound-guided thoracentesis. 12/11: Patient had a thoracentesis today, will decrease Xanax dosage and continue midodrine and diuresing. Patient failed CPAP today. 12/12: Patient not tolerate CPAP trials today, no acute events reported overnight 12/13: No acute events overnight. continue PSV trials as tolerated. Daughter upd ated at bedside 12/14: Patient noted to be anemic today, ordered gastric occult. Patient seems to be oversedated therefore Xanax changed to as needed and fentanyl patch discontinued. We will continue to monitor hyponatremia. 12/15: MARIA DEL CARMEN overnight. s/p 1unit of PRBCs, H&H stable this am, no signs of any active bleeding. Continue daily PST as tolerated. Awaiting placement. 12/16: Hypertensive this am, Midodrine decreased. Continue daily PST. MARIA DEL CARMEN overnight 12/17: Patient Hgb dropped to 6 this am, no s/s of any active bleeding, VSS. Patient received 1unit of PRBC, will continue to trend H&H. Patient was pancultured and back on IV Abx due to persistent fevers yesterday. ID is also back on the case. Continue IV Abx per ID and f/u on cultures data for sensitivity. Patient also failed PST yesterday, continue daily PST as tolerated. Electrolytes repleted, repeat labs in the am. 12/18: Patient blood cultures is growing GPC 4 out 4 bottles. PICC line D/Rivas, patient is already on IV Abx-cefepine and Vanc and ID is following. Patient remains hemodynamically stable. Daily PST as tolerated adn PRN Benzo for anxiety. 12/19: MARIA DEL CARMEN overnight. Culture data noted, continue IV Abx per ID. Orders placed for repeat Bculture. Gamble D/C overnight, patient is voiding. Check bladder scan as needed for retention. Patient failed PST again today. Continue daily PST as tolerated. 12/20: Fevers improved, Cultures +MRSA, on Vanco per ID. Repeat 2D Echo to r/o endocarditis. Patient continue to fail PST, PEEP increased to 8 today. Continue pulmonary hygiene and vent wean per CCM. Sodium tab added for hyponatremia. 12/22: Patient on pressure support trial for approximately 4 hours today, midodrine dosage increased due to hypotension. Lasix discontinued. 12/23: Started on a.m. Seroquel dose, midodrine increased to 10 mg 3 times daily, 500 mL normal saline bolus. 12/24: Seroquel dose changed (25 every morning, 75 nightly). updated at bedside by Dr. De León. CPAP trials as tolerated. Continue vancomycin. Awaiting placement. 12/25: Continue CPAP as tolerated, added gasx for distention. Continue supportive care 12/26: Patient failed PSV this AM. no acute events overnight. 12/27: GI re-consulted due to abdominal distention. No acute events reported overnight. CPAP trials as tolerated. Dr. Mckenna will get a KUB to rule out possible obstruction. 12/28: KUB shows no acute process, CXR shows improvement. CPAP trials as tolerated. 12/29: CT Abd/pelvis noted with moderated bilateral pleural effusion, anasarca, and ascites. X1dose of IV lasix administered. D/w CCM and GI orders plan for thora and paracentesis by IR. Will also start patient on aldactone Qday. Patient is tolerating trickle feeds this am, continue TF and BR adjusted for constipation. Plan of care was discussed with patient and her at the bedside. Thorough discussion on patient's overall poor prognosis and that eddie ent will most likely be vent dependent. Patient's voiced understanding of the info given. All questions and concerns were voiced at this time. 12/30: Patient did not tolerate thoracentesis in IR yesterday due to change in LOC and hypoxia. Plan for possible bedside thoracentesis and paracentesis today. Patient remains afebrile. Patient required long term care administrator IV abx therapy [id number] left, orders placed for a PICC. Patient remains with sign. Piting edema and anasarca, X1 does of PO Zaroxolyn and 2m of IV lasix given. Electrolytes repleted, repeat lab in the am. 12/31: Tolerated Rt. thoracentesis at the bedside yesterday, 1.4L removed. Patient remains stable on the vent this am, tolerating CPAP today PS dropped to 14. Recent CXR noted, left pleural effusion improved. Patient tolerated gentle diurese yesterday, good urine output reported. D/w CCM hold off on Left thoracentesis today, continue PO Aldactone and additonal zaroxolyn and IV lasix again today. F/u CXR in the am. 01/01: This am CXR noted with worsening bilateral pleural effusion. Patient is stable and tolerating PST this am, however PS is back up to 20 this am. BP is soft this am will hold off on IV diuretic for today, continue PO Aldactone. D/w CCM continue gentle diurese as tolerated. Will reassess in the am. Continue s upport care. 01/02: MARIA DEL CARMEN overnight. VSS this am, tolerating PST. X1dose of 25% IV Albumin following with 20mg IV Lasix today. Continue daily gentle diurese if hemodynamics tolerate it. Continue to monitor and replace electrolytes as needed 01/03: Abdominal distention and vomiting overnight, 600cc of gastric residual removed, TF held. KUB with no acute abnormality. Reglan added X2days, resume TF, and continue BR. Patient is tolerating PST this am. Hemodynamics remains stable, will continue gentle IV diurese. close monitoring to renal function and electrolytes. 01/04: Tolerating TF, nausea/vomiting resolved, last BM on 01/03. Continue Reglan X1 more day. Patient continue to tolerate PST. D/W CCM continue gentle diurese. F/U CXR in the am. Possible US thoracentesis tomorrow. 01/05: no acute events overnight. scheduled for thoracentesis today but procedure pushed to tomorrow. TF restarted and will be NPO post MN. 01/06: planned thoracentesis today. Working with CM for ltac/snf approval. 01/07: s/p thoracentesis 120 cc appears to have been removed. Pulm recommendations noted, agree with continued diuresis and weaning. Continued planning with CM for ltac/snf placement. 01/08: No new issues. Continue vent weaning per pulmonary. Continuing to work with CM for placement. 01/09: No new issues. Continue vent weaning per pulmonary. Continuing to work with CM for placement. Ordered BMP for tomorrow to check kidney function as patient is currently being diuresed. 01/10: No new issues. Continue vent weaning/diuresis as directed by pulmonary medicine.BMP demonstrates normal renal function and potassium. Sodium and Chloride consistent with prior labs. Will recheck BMP in 2 days. Placement continues to be an issue as patient has been denied at all facilities. Will reasses with CM on wednesday. 01/11: Emesis overnight. Do not suspect that she is obstructed as she had 2 BM reported. Will order Reglan prn, drop TF rate to goal of 30 cc/hr. Will continue to work on placement. 01/12: Per RN patient had reported that she was tired and did not want to persist in her current state of health. D/w patient Niraj at patient bedside and stated that I recommended the patient/family at least talk with hospice to get a better understanding of their care. He was agreeable. I spoke with Ms. Busby who will help set up referral for hospice service so that family can be educated and, if the patient chooses, can pursue this option. 01/13: Continue supportive care. Family discussing about hospice. Continue reinforcement and continue weaning as tolerated. Prognosis is guarded and poor. Patient is clinically stable to transfer to the next level of care has not required any escalation in management. Has been stable on the vent awake alert following commands. 01/14: Ermta-vb-affy. Considering abdominal distention tube feedings hold along with the fact that the patient vomited yesterday. Will obtain a CT abdomen and pelvis to further evaluate placement. Discussed with nursing staff. Awaiting to have a family conversation with the for goals of care discussion again. 01/15: Continue supportive care, tube feed was restarted yesterday and tolerated, will start on simethicone for gas control and management. Patient is clinically stable for all lower level of care and continued weaning from the ventilator to appropriate facility. Family still undecided about goals of care. We will also check labs intermittently. 01/16: Patient today went for Chest tube placement on the right side for recurrent pleural effusion, with the goal of evaluating to see if we can wean off the vent. She has remained on the vent and with some persistent anxiety. she continues to tolerate tube feed. Again poor prognosis discussed with family. 01/17: Status post chest tube, with output of approximately 1880 cc since placement. Will continue to work with pulmonology for vent weaning. 01/18: Only tolerated 1 hr of t piece trial yesterday per RT. Patient PaO2 50s on abg last night. Will continue to work with pulmonary medicine for vent weaning. abg, cbc, bmp, xr chest ordered for am. 01/19: On t piece trial this AM. labs reviewed. CXR reviewed and appears stable with no new changes. AB.42/47.8/112.3/30.9. Will follow pulmonary recommendations and plan to continue to wean off of vent. 01/20: Per CM, [facility] declined patient admission as there are T stated the patient was not amenable from the vent. Yesterday patient had tolerated T-piece trial for approximately 12 hours. Today patient only tolerated for 45 minutes. Had desatted and stated that she was in pain during today's trial. Output yesterday from chest tube 1000 cc. Today it is 100 cc thus far. Will obtain chest x-ray tomorrow. 01/21: XR chest demonstrate mild improvement in pulmonary edema. Chest tube OP: 400 cc on 01/20 and 450 cc thus far today. On CPAP trial this am. Hopefully patient can eventually be weaned off of vent. Placement continues to be a challenge as patient has been denied at all facilities thus far, working with CM who has been in frequent contact with [facility]. 01/22: Yesterday the patient had lasted approximately 10 hours on T-piece trial. Output from chest tube approximately 525 cc yesterday. Thus far today patient has had 400 cc. Will follow with pulmonology regarding overall plan for chest tube and weaning patient off ventilator. 01/23: chest tube output 838 cc. Follow pulmonology plan re: chest tube and vent weaning. Placement remains challenging. 01/24: Very fatigue on t - piece trial yesterday afternoon, placed on full MV support. Will re-attempt today poss. Patient will complete Vancomycin course for MRSA tx on Friday 01/26. She has been afebrile sine 01/02. Current barriers to placement are weaning patient off of ventilator and removing chest tube as thus far all facilities have declined the patient. 01/25: AM CXR shows worsening pulmonary edema. On t-piece trial this AM. Patient still continues to have output from chest tube. Will follow pulmonary recs today. 01/26: Difficulty breathing this AM. Chest tube OP approx 1L yesterday. Ordered Albumin due to hypotension noted this AM. Lasix 20 mg IV in addition to po lasix ordered for pulmonary edema. Labs ordered. 01/27: Antibiotics completed for MRSA bacteremia yesterday. Will start po bactrim for suppression per ID recommendation. Remains on MV support this AM. Blood pressure improved..actually hypertensive. Chest tube OP 50 cc yesterday. Metabolic profile noted, BUN slightly elevated but Cr in range. Can continue with lasix diuresis. Will likely need pleurx usp at some point in place of the chest tube. remote computer terminal operator prognosis remains guarded to poor. 01/28: Continue current ATP to vapotherm, agree with possible pluerex catheter for intermittent drainage/ following review of xray will trial Bumex for diuresis. Poor prognosis. 01/29: Patient seen and examined doing well diuresing appropriately with a change to Bumex therapy. Discussed with housekeeping room inspector still with good volume output fluid overload will try to diurese over the weekend. We will check a chest x- ray in the morning to see improvement in the lungs and probably repeat on Wednesday. Anticipate discharge to SNF on Wednesday clinically she is improving likely will not need a Pleurx catheter on discharge. Prognosis remains guarded. 01/30: cxr shows unchanged, but clinically patient is stable, no increase oxygen demand, also negative fluid balance. Will continue bumex, monitor electrolytes and renal function, check cxr again on wednesday with anticipation to remove Chest tube soon and hopefully discharge to SNF on wednesday 01/31: Patient doing clinically well, will recheck chest xray in am, continue bumex, monitor electrolytes, wean off oxygen as tolerated. Neuro : Anxiety, chronic pain -Neurology consulted, appreciate recommendations -CT brain showed no acute events -EEG interpreted as abnormal record due to diffuse slowing noted throughout the recording, suggestive of encephalopathic process and/or drug effect, possibilities of postictal state cannot be totally excluded. Clinical correlation is in order -MRI brain not obtained-> patient has metal in her body -Repeat CT head with no acute findings -Reorientation as needed -Ammonia 42, B12 1823, TSH 1.5 -BuSpar, Seroquel, Durand, gabapentin -prn xanax and Dilaudid Cardio: Acute Heart failure with reduced EF, h/o chronic heart block s/p PPM, HTN, CAD s/p PCI (2004), Moderate pulmonary HTN, cardiomyopathy -s/p vasopressor support with levophed -11/04 echocardiogram shows EF 30 to 35%, Moderate pulmonary HTN RVSP 49 -12/19 echo with 35-40% EF -Cardiology consulted, appreciate recommendations -Continue beta-charleen and statin therapy -Midodrine (titrate as needed) -Not on aspirin due to allergy -Blood pressure monitoring per protocol -As needed nitroglycerin Resp: Acute hypoxic respiratory failure secondary to bilateral pneumonia, recurrent bilateral pleural effusion s/p rt sided chest tube. Right pneumothorax (resolved). -COVID-19 PCR negative -Intubated on 11/06 with 6.00 ETT at 18 at the lip and changed over bougie on 11/11-7.50 ETT at 20 at the lip -See RT notes for titration -PSV as tolerated -Surgery consult for trach -Received trach/PEG on 11/26 -S/p bedside bronchoscopy on 11/11 complicated by pneumothorax -S/p chest tube placement for right pneumothorax and dislodgment by patient on 11/15 -ABG/CXR per CCM -VAP bundle -Right chest wall ultrasound showed pleural effusion s/p chest tube -12/11 US thoracentesis removed 1L fluid -12/29 US thoracentesis removed 1.4L fluid -01/06 thoracentesis planned -01/16 right-sided chest tube placed by IR -SPO2 monitoring GI: S/p GI bleed, duodenal ulcer, transaminitis -GI consulted, appreciate recommendations-signed off -Nutrition consult for tube feeding, currently on nepro TF 45 cc/hr, dropped to 30 cc/hr due to concerns for emesis. -BR: Senokot -s/p peg 11/26 -H2 charleen -Carafate -24-hour +428 ml -10/2021 Gastric occult positive -> EGD-> duodenal ulcer -12/14 occult stool positive - reglan prn. : Urinary retention (resolved), hyponatremia, hypochloremia -Strict intake and output -Trend BMP ID: Septic shock (POA-resolved), bilateral pneumonia, MRSA bacteremia/pna -Infectious disease consulted, appreciate recommendations -COVID-19 PCR negative -Presented with fevers, leukocytosis and hypotension -11/04 blood cultures positive with a group B strep bacteremia 12/19 however repeat blood cultures on the with no growth to date -Echo showed no evidence of vegetation -repeat echo showed EF 35-40 % with no vegetations -ABX therapy: IV vancomycin for 4 weeks (12/16-01/26) -Monitor WBC and fever curve -Bedside bronchoscopy for mucous plug on CXR 11/11 -f/u blood cultures Heme: Acute DVT in the right external iliac vein, common femoral vein, superior aspect of femoral vein, Acute microcytic anemia -Evidenced on bilateral upper lower extremity ultrasound -S/p 7 unit PRBC -Trend CBC -Transfuse for hemoglobin less than 7 -heparin gtt dc d/t anemia -S/p IVC filter Endo: h/o DM and hypothyroidism -Continue home Synthroid -SSI -Accu-Cheks every 6 -Avoid hypoglycemia History Interval history: Patient seen and examined, resting comfortable. Now off High flow and on ATC doing well. Hospitalist Physical - Physical exam Narrative exam: VITAL SIGNS: Reviewed. GENERAL: The patient appears normally developed, ATP to vapotherm, vital signs as documented. Frail appearing elderly woman. HEAD: No signs of head trauma. EYES: Pupils are equal. Extraocular motions intact. EARS: Hearing grossly intact. MOUTH: Oropharynx is normal. NECK: No adenopathy, no JVD. Trach to ATC CHEST: Bl rhonchi, right sided chest tube CARDIAC: Regular rate and rhythm. S1 and S2, without murmurs, gallops, or rubs. VASCULAR: No Edema. Peripheral pulses normal and equal in all extremities. ABDOMEN: Soft, non tender and mildly distended. No rebound or guarding, and no masses palpated. Bowel Sounds normal. MUSCULOSKELETAL: Good range of motion of all major joints. Extremities without clubbing, cyanosis or edema. NEUROLOGIC EXAM: Alert and oriented x 3. Holding her paper and writing, No focal sensory or strength deficits. PSYCHIATRIC: stable SKIN: detail exam as documented in skin assessment - Constitutional Vitals: Temp Pulse Resp BP Pulse Ox 98.1 F 60 20 124/53 99 01/31/22 03:56 01/31/22 10:00 01/31/22 06:00 01/31/22 10:00 01/31/22 07:46 General appearance: Present: no acute distress HEART Score - HEART Score Troponin: Troponin T 0.078 ng/mL (0.00-0.029) H 01/15/22 Unknown Results - Labs CBC & Chem 7: 01/26/22 10:16 01/31/22 04:08 Labs: Laboratory Last Values WBC 12.7 K/mm3 (4.5-11.0) H 01/26/22 10:16 RBC 3.74 M/mm3 (3.65-5.03) 01/26/22 10:16 Hgb 9.9 gm/dl (10.1-14.3) L 01/26/22 10:16 Hct 31.1 % (30.3-42.9) 01/26/22 10:16 MCV 83 fl (79-97) 01/26/22 10:16 MCH 27 pg (28-32) L 01/26/22 10:16 MCHC 32 % (30-34) 01/26/22 10:16 RDW 18.3 % (13.2-15.2) H 01/26/22 10:16 Plt Count 269 K/mm3 (140-440) 01/26/22 10:16 Lymph % (Auto) 25.6 % (13.4-35.0) 01/26/22 10:16 Cooke % (Auto) 4.5 % (0.0-7.3) 01/26/22 10:16 Eos % (Auto) 4.5 % (0.0-4.3) H 01/26/22 10:16 Baso % (Auto) 0.7 % (0.0-1.8) 01/26/22 10:16 Lymph # (Auto) 3.2 K/mm3 (1.2-5.4) 01/26/22 10:16 Cooke # (Auto) 0.6 K/mm3 (0.0-0.8) 01/26/22 10:16 Eos # (Auto) 0.6 K/mm3 (0.0-0.4) H 01/26/22 10:16 Baso # (Auto) 0.1 K/mm3 (0.0-0.1) 01/26/22 10:16 Add Manual Diff Complete 01/19/22 04:50 Total Counted 100 01/15/22 14:36 Seg Neutrophils % 64.7 % (40.0-70.0) 01/26/22 10:16 Seg Neuts % (Manual) 82.0 % (40.0-70.0) H 01/15/22 14:36 Band Neutrophils % 0 % 01/15/22 14:36 Lymphocytes % (Manual) 11.0 % (13.4-35.0) L 01/15/22 14:36 Reactive Lymphs % (Man) 0 % 01/15/22 14:36 Monocytes % (Manual) 5.0 % (0.0-7.3) 01/15/22 14:36 Eosinophils % (Manual) 1.0 % (0.0-4.3) 01/15/22 14:36 Basophils % (Manual) 1.0 % (0.0-1.8) 01/15/22 14:36 Metamyelocytes % 0 % 01/15/22 14:36 Myelocytes % 0 % 01/15/22 14:36 Promyelocytes % 0 % 01/15/22 14:36 Blast Cells % 0 % 01/15/22 14:36 Nucleated RBC % Not Reportable 01/15/22 14:36 Seg Neutrophils # 8.2 K/mm3 (1.8-7.7) H 01/26/22 10:16 Seg Neutrophils # Man 8.8 K/mm3 (1.8-7.7) H 01/15/22 14:36 Band Neutrophils # 0.0 K/mm3 01/15/22 14:36 Lymphocytes # (Manual) 1.2 K/mm3 (1.2-5.4) 01/15/22 14:36 Abs React Lymphs (Man) 0.0 K/mm3 01/15/22 14:36 Monocytes # (Manual) 0.5 K/mm3 (0.0-0.8) 01/15/22 14:36 Eosinophils # (Manual) 0.1 K/mm3 (0.0-0.4) 01/15/22 14:36 Basophils # (Manual) 0.1 K/mm3 (0.0-0.1) 01/15/22 14:36 Metamyelocytes # 0.0 K/mm3 01/15/22 14:36 Myelocytes # 0.0 K/mm3 01/15/22 14:36 Promyelocytes # 0.0 K/mm3 01/15/22 14:36 Blast Cells # 0.0 K/mm3 01/15/22 14:36 WBC Morphology Not Reportable 01/15/22 14:36 Hypersegmented Neuts Not Reportable 01/15/22 14:36 Hyposegmented Neuts Not Reportable 01/15/22 14:36 Hypogranular Neuts Not Reportable 01/15/22 14:36 Smudge Cells Not Reportable 01/15/22 14:36 Toxic Granulation Not Reportable 01/15/22 14:36 Toxic Vacuolation Not Reportable 01/15/22 14:36 Dohle Bodies Not Reportable 01/15/22 14:36 Pelger-Huet Anomaly Not Reportable 01/15/22 14:36 Irina Rods Not Reportable 01/15/22 14:36 Platelet Estimate Consistent w auto 01/15/22 14:36 Clumped Platelets Not Reportable 01/15/22 14:36 Plt Clumps, EDTA Not Reportable 01/15/22 14:36 Large Platelets Not Reportable 01/15/22 14:36 Giant Platelets Not Reportable 01/15/22 14:36 Platelet Satelliting Not Reportable 01/15/22 14:36 Plt Morphology Comment Not Reportable 01/15/22 14:36 RBC Morphology Not Reportable 01/15/22 14:36 Dimorphic RBCs Not Reportable 01/15/22 14:36 Polychromasia Not Reportable 01/15/22 14:36 Hypochromasia Not Reportable 01/15/22 14:36 Poikilocytosis Not Reportable 01/15/22 14:36 Anisocytosis 1+ 01/15/22 14:36 Microcytosis Not Reportable 01/15/22 14:36 Macrocytosis Not Reportable 01/15/22 14:36 Spherocytes Not Reportable 01/15/22 14:36 Pappenheimer Bodies Not Reportable 01/15/22 14:36 Sickle Cells Not Reportable 01/15/22 14:36 Target Cells Not Reportable 01/15/22 14:36 Tear Drop Cells Not Reportable 01/15/22 14:36 Ovalocytes Not Reportable 01/15/22 14:36 Helmet Cells Not Reportable 01/15/22 14:36 Odonnell-Greer Bodies Not Reportable 01/15/22 14:36 Butler Rings Not Reportable 01/15/22 14:36 Stuyvesant Cells Not Reportable 01/15/22 14:36 Bite Cells Not Reportable 01/15/22 14:36 Crenated Cell Not Reportable 01/15/22 14:36 Elliptocytes Not Reportable 01/15/22 14:36 Acanthocytes (Spur) Not Reportable 01/15/22 14:36 Rouleaux Not Reportable 01/15/22 14:36 Hemoglobin C Crystals Not Reportable 01/15/22 14:36 Schistocytes Not Reportable 01/15/22 14:36 Malaria parasites Not Reportable 01/15/22 14:36 Godfrey Bodies Not Reportable 01/15/22 14:36 Hem Pathologist Commnt No 01/15/22 14:36 PT 16.9 Sec. (12.2-14.9) H 01/06/22 04:06 INR 1.23 (0.87-1.13) H 01/06/22 04:06 APTT 29.2 Sec. (24.2-36.6) 11/26/21 05:00 D-Dimer 2655.00 ng/mlDDU (0-234) H 11/11/21 04:28 ABG pH 7.488 pH Units (7.350-7.450) H 01/25/22 12:20 ABG pCO2 38.2 mm Hg 01/25/22 12:20 ABG pO2 58.9 mm Hg (80.0-90.0) L 01/25/22 12:20 ABG HCO3 28.3 mmol/L (20.0-26.0) H 01/25/22 12:20 ABG O2 Saturation 94.9 % (95.0-99.0) L 01/25/22 12:20 ABG O2 Content 11.4 (0.0-44) 01/25/22 12:20 ABG Base Excess 4.7 mmol/L (-2.0-3.0) H 01/25/22 12:20 ABG Hemoglobin 8.7 gm/dl (12.0-16.0) L 01/25/22 12:20 ABG Carboxyhemoglobin 1.8 % (0.0-5.0) 01/25/22 12:20 ABG Methemoglobin 0.5 % (0.0-1.5) 01/25/22 12:20 Oxyhemoglobin 92.7 % (95.0-99.0) L 01/25/22 12:20 FiO2 35 % 01/25/22 12:20 Sodium 136 mmol/L (137-145) L 01/31/22 04:08 Potassium 4.1 mmol/L (3.6-5.0) 01/31/22 04:08 Chloride 97.6 mmol/L (98-107) L 01/31/22 04:08 Carbon Dioxide 30 mmol/L (22-30) 01/31/22 04:08 Anion Gap 13 mmol/L 01/31/22 04:08 BUN 41 mg/dL (7-17) H 01/31/22 04:08 Creatinine 0.7 mg/dL (0.6-1.2) 01/31/22 04:08 Estimated GFR > 60 ml/min 01/31/22 04:08 BUN/Creatinine Ratio 59 % 01/31/22 04:08 Glucose 120 mg/dL (65-100) H 01/31/22 04:08 POC Glucose 111 mg/dL (70-105) H 01/31/22 05:12 Lactic Acid 3.70 mmol/L (0.7-2.0) H* 11/03/21 22:32 Calcium 8.8 mg/dL (8.4-10.2) 01/31/22 04:08 Phosphorus 4.00 mg/dL (2.5-4.5) 01/26/22 10:16 Magnesium 1.70 mg/dL (1.7-2.3) 01/26/22 10:16 Ferritin 52.6 ng/mL (10.0-200.0) 11/05/21 06:11 Total Bilirubin 0.50 mg/dL (0.1-1.2) 11/17/21 05:56 Direct Bilirubin < 0.2 mg/dL (0-0.2) 11/11/21 04:28 Indirect Bilirubin 0.1 mg/dL 11/11/21 04:28 AST 36 units/L (5-40) 11/17/21 05:56 ALT 47 units/L (7-56) 11/17/21 05:56 Alkaline Phosphatase 107 units/L (35-129) 11/17/21 05:56 Ammonia 42.0 umol/L (25-60) 11/10/21 14:08 Lactate Dehydrogenase 187 units/L (91-180) H 11/05/21 06:11 Troponin T 0.078 ng/mL (0.00-0.029) H 01/15/22 Unknown C-Reactive Protein 22.20 mg/dL (0.00-1.30) H 11/05/21 06:11 NT-Pro-B Natriuret Pep 7895 pg/mL (0-900) H 11/03/21 22:32 Total Protein 5.1 g/dL (6.3-8.2) L 11/17/21 05:56 Albumin 2.2 g/dL (3.9-5) L 11/17/21 05:56 Albumin/Globulin Ratio 0.8 % 11/17/21 05:56 Triglycerides 72 mg/dL (2-149) 01/15/22 21:07 Cholesterol 103 mg/dL (50-199) 01/15/22 21:07 LDL Cholesterol Direct 44 mg/dL (50-130) L 01/15/22 21:07 HDL Cholesterol 46 mg/dL (40-59) 01/15/22 21:07 Cholesterol/HDL Ratio 2.23 % 01/15/22 21:07 Vitamin B12 1823 pg/mL (211-911) H 11/10/21 14:08 TSH 1.510 mlU/mL (0.270-4.200) 11/10/21 14:08 Urine Color Shamika (Yellow) 01/23/22 09:36 Urine Turbidity Turbid (Clear) 01/23/22 09:36 Urine pH 7.0 (5.0-7.0) 01/23/22 09:36 Ur Specific [place] 1.011 (1.003-1.030) 01/23/22 09:36 Urine Protein <15 mg/dl mg/dL (Negative) 01/23/22 09:36 Urine Glucose (UA) Neg mg/dL (Negative) 01/23/22 09:36 Urine Ketones Neg mg/dL (Negative) 01/23/22 09:36 Urine Blood Sm (Negative) 01/23/22 09:36 Urine Nitrite Neg (Negative) 01/23/22 09:36 Urine Bilirubin Neg (Negative) 01/23/22 09:36 Urine Urobilinogen 2.0 mg/dL (<2.0) 01/23/22 09:36 Ur Leukocyte Esterase Lg (Negative) 01/23/22 09:36 Urine WBC (Auto) 16.0 /HPF (0.0-6.0) H 01/23/22 09:36 Urine RBC (Auto) 32.0 /HPF (0.0-6.0) 01/23/22 09:36 U Epithel Cells (Auto) 1.0 /HPF (0-13.0) 01/23/22 09:36 Urine Bacteria (Auto) 4+ /HPF (Negative) 01/23/22 09:36 Urine Mucus Few /HPF 01/23/22 09:36 Urine Yeast (Budding) 3+ /HPF 01/23/22 09:36 Urine Sperm Few /HPF (LINOLEUM FLOOR INSTALLER) 01/23/22 09:36 Fluid Type Pleural 01/06/22 13:40 Fluid Color Yellow 01/06/22 13:40 Fluid Appearance Hazy 01/06/22 13:40 Fluid WBC 273 /mm3 01/06/22 13:40 Fluid RBC 45 /mm3 01/06/22 13:40 Fluid Seg Neutrophils 47.0 % 01/06/22 13:40 Fluid Lymphocytes 22.0 % 01/06/22 13:40 Fluid Monocytes 10.0 % 01/06/22 13:40 Fluid Eosinophils 19.0 % 01/06/22 13:40 Fluid Basophils 2.0 % 01/06/22 13:40 Fluid Glucose 96 mg/dL (40-70) H 01/06/22 13:40 Fluid Total Protein < 3.0 (15.0-45.0) L 01/06/22 13:40 Fluid LDH 149 01/06/22 13:40 Vancomycin Trough 11.8 ug/mL (5.0-20.0) 01/22/22 10:14 Random Vancomycin 10.5 ug/mL (0-40.0) 01/04/22 05:00 Coronavirus (PCR) Negative (Negative) 11/10/21 08:30 Blood Type O POSITIVE 12/14/21 10:30 Antibody Screen Negative 12/14/21 10:30 Crossmatch See Detail 12/14/21 10:30 Gamble/IV: Voiding Method External Female Catheter Active Medications - Current Medications Current Medications: Generic Name Dose Route Start Last Admin Trade Name Freq PRN Reason Stop Dose Admin Acetaminophen 650 mg 12/14/21 04:12 01/26/22 03:19 Acetaminophen 325 Mg/10.15 Ml Oral Liqd Unit Dose FEEDTUBE 650 mg Q6H PRN Administration Non Cardiac Pain or Temp>100.5 Hydrocodone Bitart/Acetaminophen 1 each 11/21/21 10:00 01/31/22 08:50 Hydrocodone/Acetaminophen 10-325mg Tab FEEDTUBE 1 each TID YOSSI Administration Alprazolam 0.25 mg 01/22/22 03:00 01/31/22 02:40 Alprazolam 0.5 Mg Tab FEEDTUBE 0.25 mg Q8H PRN Administration Agitation Lipase/Protease/Amylase 1 each 11/08/21 11:09 Lipase 10,500/Protease 25,000/Amylase 43,750 (Units) Dr Lema FEEDTUBE PRN PRN For Clogged Feeding Tube Bumetanide 1 mg 01/28/22 10:00 01/31/22 10:01 Bumetanide 1 Mg/4 Ml Inj IV 02/02/22 09:59 1 mg DAILY YOSSI Administration Buspirone HCl 7.5 mg 12/30/21 10:00 01/31/22 10:00 Buspirone 5 Mg Tab FEEDTUBE 7.5 mg BID YOSSI Administration Dextrose 50 ml 01/16/22 14:00 Dextrose 50% In Water (25gm) 50 Ml Syringe IV Q30MIN PRN Hypoglycemia Protocol Docusate Sodium 100 mg 12/30/21 10:00 01/31/22 09:58 Docusate Sodium 100 Mg/10 Ml Oral Liqd FEEDTUBE 100 mg BID YOSSI Administration Gabapentin 100 mg 01/22/22 10:00 01/30/22 09:50 Gabapentin 500 Mg/10 Ml Oral Liqd FEEDTUBE 100 mg QDAY YOSSI Administration Hydrophilic Ointment 1 applic 11/06/21 04:02 Lip Therapy Vaseline TP Q2HR PRN Dry Lips Lansoprazole 30 mg 11/24/21 22:00 01/31/22 10:00 Lansoprazole 30 Mg Solutab FEEDTUBE 30 mg BID YOSSI Administration Levothyroxine Sodium 125 mcg 12/31/21 06:00 01/31/22 05:32 Levothyroxine 125 Mcg Tab FEEDTUBE 125 mcg DAILY@0600 YOSSI Administration Melatonin 5 mg 12/05/21 22:00 01/30/22 22:20 Melatonin 5 Mg Tab PO 5 mg QHS YOSSI Administration Metoclopramide HCl 10 mg 01/11/22 13:25 01/21/22 21:43 Metoclopramide 10 Mg/2 Ml Inj IV 10 mg Q6H PRN Administration Nausea And Vomiting Metoprolol Tartrate 6.25 mg 12/30/21 10:00 01/31/22 09:59 Metoprolol Tartrate 25 Mg Tab FEEDTUBE 6.25 mg BID YOSSI Administration Midodrine 10 mg 01/21/22 08:00 01/31/22 08:49 Midodrine 5 Mg Tab FEEDTUBE 10 mg TID@0800,1200,1600 [facility] Administration Multi-Ingred Cream/Lotion/Oil/Oint 1 applic 11/06/21 04:02 Mineral Oil/Petrolatum, White Ophth Oint 3.5 Gm OU Q4HR PRN Dry Eye(s) Ondansetron HCl 4 mg 12/05/21 10:00 01/20/22 22:10 Ondansetron 4 Mg/2 Ml Inj IV 4 mg Q8H PRN Administration Nausea And Vomiting Polyethylene Glycol 17 gm 12/30/21 10:00 01/31/22 10:01 Polyethylene Glycol 3350 17 Gm Powder FEEDTUBE Not Given QDAY [facility] Pravastatin Sodium 20 mg 12/30/21 22:00 01/30/22 22:21 Pravastatin 20 Mg Tab FEEDTUBE 20 mg QHS YOSSI Administration Quetiapine Fumarate 25 mg 12/30/21 10:00 01/31/22 10:00 Quetiapine 25 Mg Tab FEEDTUBE 25 mg QAM YOSSI Administration Quetiapine Fumarate 50 mg 12/30/21 22:00 01/30/22 22:20 Quetiapine 25 Mg Tab FEEDTUBE 50 mg QHS YOSSI Administration Senna 17.6 mg 12/29/21 11:00 01/31/22 09:59 Sennosides Oral Liqd 8.8 Mg/5 Ml Oral Liqd FEEDTUBE 17.6 mg Q12HR YOSSI Administration Simethicone 80 mg 01/15/22 15:06 01/15/22 21:10 Simethicone 80 Mg Chew Tab PO 80 mg PC PRN Administration Gas pain Simple Syrup 15 ml 11/08/21 11:09 Simple Syrup 15 Ml FEEDTUBE PRN PRN Hypoglycemia Simple Syrup 30 ml 11/08/21 11:09 Simple Syrup 15 Ml FEEDTUBE PRN PRN Hypoglycemia Sodium Bicarbonate 325 mg 11/08/21 11:09 01/09/22 20:25 Sodium Bicarbonate 325 Mg Tab FEEDTUBE 325 mg PRN PRN Administration For Clogged Feeding Tube Sodium Chloride 10 ml 11/04/21 10:00 01/31/22 10:15 Sodium Chloride 0.9% 10 Ml Flush Syringe IV 10 ml BID YOSSI Administration Sodium Chloride 10 ml 11/04/21 02:03 01/09/22 06:35 Sodium Chloride 0.9% 10 Ml Flush Syringe IV 10 ml PRN PRN Administration LINE FLUSH Spironolactone 25 mg 12/30/21 10:00 01/31/22 10:00 Spironolactone 25 Mg Tab FEEDTUBE 25 mg QDAY YOSSI Administration Sucralfate 1 gm 12/30/21 12:00 01/31/22 05:32 Sucralfate 1 Gm/10 Ml Oral Liqd FEEDTUBE 1 gm Q6HR YOSSI Administration Trazodone HCl 50 mg 12/04/21 22:00 01/30/22 22:21 Trazodone 50 Mg Tab PO 50 mg QHS YOSSI Administration Trimethoprim/Sulfamethoxazole 160 mg 01/27/22 13:00 01/31/22 09:58 Sulfamethoxazole/Trimethoprim 200-40 Mg/5 Ml Oral Liqd 30 Ml PO 160 mg Q24HR YOSSI Administration Protocol Nutrition/Malnutrition Assess - Dietary Evaluation Nutrition/Malnutrition Findings: Nutrition Notes Start: 11/04/21 17:16 Freq: Status: Active Protocol: Document 01/26/22 14:39 NHALL (Rec: 01/26/22 14:45 [facility] [id number]) Nutrition Notes Initial or Follow up Reassessment Current Diagnosis Coronary Artery Disease, Diabetes,Hypertension,Heart Failure,Respiratory Failure Other Pertinent Diagnosis Bilat pleural effusion Current Diet TF - Vital AF 1.2 at 35ml/hr Labs/Tests Reviewed Pertinent Medications 25% Human albumin x 1 dose, Lasix x 1 dose Height 5 ft Weight 62.6 kg [place] Body Weight (kg) 45.45 BMI 26.9 Weight Status Overweight Subjective/Other Information Pt tolerating TF at goal rate. Pt remains on T-piece trials , however, was on vent support at time of visit today; chest tube still in place with substantial output. Percent of energy/protein needs met: 84% energy and pro Burn Absent Trauma Absent #2 Nutrition Diagnosis Inadequate enteral nutrition infusion #1 Nutrition Diagnosis Inadequate oral intake Diagnosis Progress(for reassessment Continues documentation) Is patient on ventilator? Yes Is Patient Ambulatory and/or Out of Bed No REE-([facility]-confined to bed) 1210.212 Calculation Used for Recommendations [facility] Additional Notes Pro needs 1.2-2g/k-125g/ day Fluid needs 1ml/kcal Nutrition Intervention Nutrition Support: Continue Vital AF 1.2 at 35ml/ hr with 50ml water flush q4h. Kcal 1,008 Protein (gm) 63 Carbohydrates (gm) 45 Fat (gm) 45 Fluid (mL) 681 Fiber (gm) 4 Add Supplement/Snack (indicate name/kcal Jaswant BID /protein ) Provides kCal: 190 Provides Protein (gm) 5 Goal #1 TF tolerance Goal #2 TF to meet at least 75% energy and pro needs Goal #3 Wound healing Follow-Up By: 02/02/22 Additional Comments F/U: stable TF, wt, vent status, wound healing/Jaswant administration
[2022-01-31] MEDS: GABAPENTIN 500 MG/10 ML ORAL LIQD FEEDTUBE SCH (12:38)
--- NOTE | 2022-01-31 13:40 | Progress Note ---
Assessment and Plan Severe Sepsis POA vs septic shock- 11/03/2021 blood culture: 2 sets positive for GPC -Repeat cultures positive for MRSA Acute respiratory failure with hypoxia, s/p trach on MVS Acute microcytic anemia Bilateral pneumonia Left pleural effusion Cardiomyopathy EF 30-35% Moderate pulmonary HTN RVSP 49 Acute DVT s/p IVC Anemia Mild hyponatremia Continue ATP to Vapotherm Right chest tube to pleuravac- responding to diuresis. Plan to monitor renal function and chest tube output. Will plan on removing the chest tube once the drainage is minimal Continue to monitor hemoglobin and transfuse as clinically indicated to keep HgB>7g/dL s/p Antibiotics for MRSA bacteremia. Bactrim for chronic suppression per ID Maintain sleep-wake cycle PT/OT, increase activity Discharge planning - continue to titrate supplemental oxygen to keep SPO2 88-90% - VAP bundle addressed, aspiration precautions, HOB >40 - continue bronchodilators with pulmonary hygiene per RT - continue avoid nephrotoxins, renally dose all medications - Accuchecks with glycemic control per SSI (While critically ill target blood glucose of 140-180 mg/dL; avoid hypoglycemia) - continue to avoid benzodiazepines, reduce the possibility of delirium -trend temperature curve, trend WCC, - Maintenance of sleep-wake cycle, avoid delirium -Stress ulcer prophylaxis (Lansoprazole) -VTE prophylaxis- s/p IVC filter. No anticoagulation 11/18 EGD- Large cratered ulcer in the posterior duodenal bulb about 2 cm in diameter.Visible vessel present. Mild active oozing from the ulcer bed. A total of 3 injections were performed around the ulcer for a total of 2.5 cc of dilute epinephrine and hemostasis was obtained. -mobility, off loading and frequent turning to prevent pressure ulcer -continue with enteric nutritional support via PEG,at goal rate - Continue to monitor hemodynamics closely - continue other care per attending / other consultants CONDITION: FAIR PROGNOSIS: GUARDED CODE STATUS: FULL CODE Subjective Date of service: 01/31/22 Principal diagnosis: Septic shock; AHRF; Anemia; Pneumonia; pleural effusion; HFrEF; Pulm HTN Interval history: Follow up fro acute hypoxemic resp failure s/p tracheostomy to MVS ; Septic and cardiogenic shock; severe anemia; Patient seen and examined. Vitals, labs, medications, chart and imaging reviewed. Discussed with respiratory and nursing care staff. ATP to Vapotherm 25L 35% Chest tube output 600ml yesterday in response to Bumetanide Objective Vital Signs - 12hr 01/31/22 01/31/22 01/31/22 02:00 03:00 03:53 Temperature 98.1 F Pulse Rate 60 60 Pulse Rate [ From Monitor] Respiratory 14 15 Rate Blood Pressure 105/41 99/36 O2 Sat by Pulse 99 98 Oximetry O2 Sat by Pulse Oximetry [ Assessment] 01/31/22 01/31/22 01/31/22 03:56 04:00 04:21 Temperature 98.1 F Pulse Rate 60 61 Pulse Rate [ From Monitor] Respiratory 16 Rate Blood Pressure 107/39 O2 Sat by Pulse 99 Oximetry O2 Sat by Pulse Oximetry [ Assessment] 01/31/22 01/31/22 01/31/22 05:00 06:00 07:00 Temperature Pulse Rate 60 65 64 Pulse Rate [ From Monitor] Respiratory 16 20 13 Rate Blood Pressure 100/37 121/52 120/50 O2 Sat by Pulse 100 100 100 Oximetry O2 Sat by Pulse Oximetry [ Assessment] 01/31/22 01/31/22 01/31/22 07:45 07:46 08:00 Temperature Pulse Rate 60 Pulse Rate [ 60 From Monitor] Respiratory 18 Rate Blood Pressure 108/41 O2 Sat by Pulse 98 99 Oximetry O2 Sat by Pulse 99 Oximetry [ Assessment] 01/31/22 01/31/22 01/31/22 09:00 09:59 10:00 Temperature Pulse Rate 60 61 60 Pulse Rate [ From Monitor] Respiratory 18 19 Rate Blood Pressure 117/47 117/47 124/53 O2 Sat by Pulse 99 100 Oximetry O2 Sat by Pulse Oximetry [ Assessment] 01/31/22 01/31/22 01/31/22 11:00 12:00 12:01 Temperature Pulse Rate 60 60 63 Pulse Rate [ 61 From Monitor] Respiratory 15 12 18 Rate Blood Pressure 112/44 127/49 O2 Sat by Pulse 100 100 91 Oximetry O2 Sat by Pulse Oximetry [ Assessment] 01/31/22 13:00 Temperature Pulse Rate 61 Pulse Rate [ From Monitor] Respiratory 15 Rate Blood Pressure 114/45 O2 Sat by Pulse 95 Oximetry O2 Sat by Pulse Oximetry [ Assessment] Constitutional: no acute distress, alert, other (trach to full support) Eyes: non-icteric ENT: oropharynx moist, other (+ Midline tracheostomy with minimal secretions) Neck: supple, no lymphadenopathy, no JVD Effort: normal, mildly labored Ascultation: Bilateral: diminished breath sounds, rhonchi, other (Right chest tube) Percussion: Right: not dull, Left: dull (bases) Cardiovascular: regular rate and rhythm, other (S1,S2) Gastrointestinal: normoactive bowel sounds, soft, non-tender, non-distended (protuberant) Integumentary: normal Extremities: no cyanosis, pink and warm, pulses normal, edema (upper etremities), anasarca Neurologic: non-focal exam (grossly), pupils equal and round, CN II-XII normal Psychiatric: affect normal CBC and BMP: 01/26/22 10:16 01/31/22 04:08 ABG, PT/INR, D-dimer: ABG ABG pH 7.488 pH Units (7.350-7.450) H 01/25/22 12:20 ABG pCO2 38.2 mm Hg 01/25/22 12:20 ABG pO2 58.9 mm Hg (80.0-90.0) L 01/25/22 12:20 ABG O2 Saturation 94.9 % (95.0-99.0) L 01/25/22 12:20 PT/INR, D-dimer PT 16.9 Sec. (12.2-14.9) H 01/06/22 04:06 INR 1.23 (0.87-1.13) H 01/06/22 04:06 D-Dimer 2655.00 ng/mlDDU (0-234) H 11/11/21 04:28 Abnormal lab findings: Abnormal Labs 11/03/21 11/03/21 11/03/21 22:32 22:32 22:32 WBC 29.3 H RBC 2.93 L Hgb 6.1 L Hct 21.9 L MCV 75 L MCH 21 L MCHC 28 L RDW 19.7 H Plt Count Eos % (Auto) Eos # (Auto) Seg Neuts % (Manual) 97.0 H Lymphocytes % (Manual) 3.0 L Seg Neutrophils # Seg Neutrophils # Man 28.4 H Lymphocytes # (Manual) 0.9 L Monocytes # (Manual) PT 18.6 H INR 1.40 H D-Dimer ABG pH ABG pO2 ABG HCO3 ABG O2 Saturation ABG Base Excess ABG Hemoglobin Oxyhemoglobin Sodium Potassium Chloride Carbon Dioxide 20 L BUN 33 H Creatinine Glucose 119 H POC Glucose Lactic Acid Calcium 8.3 L Phosphorus Magnesium AST ALT Alkaline Phosphatase Lactate Dehydrogenase Troponin T 0.035 H C-Reactive Protein NT-Pro-B Natriuret Pep Total Protein Albumin LDL Cholesterol Direct 34 L Vitamin B12 Urine WBC (Auto) Fluid Glucose Fluid Total Protein Vancomycin Trough Crossmatch 11/03/21 11/03/21 11/03/21 22:32 22:32 23:57 WBC RBC Hgb Hct MCV MCH MCHC RDW Plt Count Eos % (Auto) Eos # (Auto) Seg Neuts % (Manual) Lymphocytes % (Manual) Seg Neutrophils # Seg Neutrophils # Man Lymphocytes # (Manual) Monocytes # (Manual) PT INR D-Dimer ABG pH ABG pO2 ABG HCO3 ABG O2 Saturation ABG Base Excess ABG Hemoglobin Oxyhemoglobin Sodium Potassium Chloride Carbon Dioxide BUN Creatinine Glucose POC Glucose Lactic Acid 3.70 H* Calcium Phosphorus Magnesium AST ALT Alkaline Phosphatase 139 H Lactate Dehydrogenase Troponin T C-Reactive Protein NT-Pro-B Natriuret Pep 7895 H Total Protein Albumin 3.5 L LDL Cholesterol Direct Vitamin B12 Urine WBC (Auto) Fluid Glucose Fluid Total Protein Vancomycin Trough Crossmatch See Detail 11/04/21 11/04/21 11/05/21 00:59 13:58 00:51 WBC 27.9 H RBC 3.28 L Hgb 7.3 L Hct 25.5 L MCV 78 L MCH 22 L MCHC 29 L RDW 19.1 H Plt Count Eos % (Auto) Eos # (Auto) Seg Neuts % (Manual) 96.0 H Lymphocytes % (Manual) 2.0 L Seg Neutrophils # Seg Neutrophils # Man 26.8 H Lymphocytes # (Manual) 0.6 L Monocytes # (Manual) PT INR D-Dimer ABG pH ABG pO2 ABG HCO3 ABG O2 Saturation ABG Base Excess ABG Hemoglobin Oxyhemoglobin Sodium Potassium Chloride Carbon Dioxide BUN Creatinine Glucose POC Glucose Lactic Acid Calcium Phosphorus Magnesium AST ALT Alkaline Phosphatase Lactate Dehydrogenase Troponin T 0.051 H D 0.032 H D C-Reactive Protein NT-Pro-B Natriuret Pep Total Protein Albumin LDL Cholesterol Direct Vitamin B12 Urine WBC (Auto) Fluid Glucose Fluid Total Protein Vancomycin Trough Crossmatch 11/05/21 11/05/21 11/05/21 06:11 06:11 06:11 WBC 31.8 H RBC 3.57 L Hgb 8.0 L Hct 27.7 L MCV 78 L MCH 22 L MCHC 29 L RDW 19.2 H Plt Count Eos % (Auto) Eos # (Auto) Seg Neuts % (Manual) 91.0 H Lymphocytes % (Manual) 4.5 L Seg Neutrophils # Seg Neutrophils # Man 28.9 H Lymphocytes # (Manual) Monocytes # (Manual) 1.1 H PT INR D-Dimer 1494.53 H ABG pH ABG pO2 ABG HCO3 ABG O2 Saturation ABG Base Excess ABG Hemoglobin Oxyhemoglobin Sodium Potassium Chloride Carbon Dioxide 19 L BUN 42 H Creatinine Glucose 115 H POC Glucose Lactic Acid Calcium Phosphorus Magnesium AST 43 H ALT Alkaline Phosphatase Lactate Dehydrogenase 187 H Troponin T C-Reactive Protein 22.20 H NT-Pro-B Natriuret Pep Total Protein 6.0 L Albumin 3.2 L LDL Cholesterol Direct Vitamin B12 Urine WBC (Auto) Fluid Glucose Fluid Total Protein Vancomycin Trough Crossmatch 11/05/21 11/05/21 11/06/21 06:11 12:15 00:30 WBC RBC Hgb Hct MCV MCH MCHC RDW Plt Count Eos % (Auto) Eos # (Auto) Seg Neuts % (Manual) Lymphocytes % (Manual) Seg Neutrophils # Seg Neutrophils # Man Lymphocytes # (Manual) Monocytes # (Manual) PT INR D-Dimer ABG pH ABG pO2 ABG HCO3 ABG O2 Saturation ABG Base Excess ABG Hemoglobin Oxyhemoglobin Sodium Potassium Chloride Carbon Dioxide BUN Creatinine Glucose POC Glucose 113 H 69 L Lactic Acid Calcium Phosphorus Magnesium AST ALT Alkaline Phosphatase Lactate Dehydrogenase Troponin T 0.033 H C-Reactive Protein NT-Pro-B Natriuret Pep Total Protein Albumin LDL Cholesterol Direct Vitamin B12 Urine WBC (Auto) Fluid Glucose Fluid Total Protein Vancomycin Trough Crossmatch 11/06/21 11/06/21 11/06/21 05:50 15:50 15:50 WBC 25.5 H RBC 3.62 L Hgb 8.0 L Hct 27.5 L MCV 76 L MCH 22 L MCHC 29 L RDW 19.6 H Plt Count Eos % (Auto) Eos # (Auto) Seg Neuts % (Manual) 92.0 H Lymphocytes % (Manual) 5.0 L Seg Neutrophils # Seg Neutrophils # Man 23.5 H Lymphocytes # (Manual) Monocytes # (Manual) PT INR D-Dimer ABG pH 7.305 L ABG pO2 ABG HCO3 15.8 L ABG O2 Saturation ABG Base Excess -9.6 L ABG Hemoglobin 8.6 L Oxyhemoglobin 94.6 L Sodium Potassium Chloride 113.9 H Carbon Dioxide 17 L BUN 56 H Creatinine Glucose 114 H POC Glucose Lactic Acid Calcium 7.9 L Phosphorus Magnesium AST 1410 H ALT 934 H Alkaline Phosphatase 142 H Lactate Dehydrogenase Troponin T C-Reactive Protein NT-Pro-B Natriuret Pep Total Protein 5.0 L Albumin 2.6 L LDL Cholesterol Direct Vitamin B12 Urine WBC (Auto) Fluid Glucose Fluid Total Protein Vancomycin Trough Crossmatch 11/07/21 11/07/21 11/07/21 03:30 04:50 08:07 WBC RBC Hgb Hct MCV MCH MCHC RDW Plt Count Eos % (Auto) Eos # (Auto) Seg Neuts % (Manual) Lymphocytes % (Manual) Seg Neutrophils # Seg Neutrophils # Man Lymphocytes # (Manual) Monocytes # (Manual) PT INR D-Dimer ABG pH ABG pO2 296.9 H ABG HCO3 18.1 L ABG O2 Saturation 99.5 H ABG Base Excess -5.9 L ABG Hemoglobin 7.6 L Oxyhemoglobin Sodium Potassium Chloride Carbon Dioxide BUN Creatinine Glucose POC Glucose 106 H 108 H Lactic Acid Calcium Phosphorus Magnesium AST ALT Alkaline Phosphatase Lactate Dehydrogenase Troponin T C-Reactive Protein NT-Pro-B Natriuret Pep Total Protein Albumin LDL Cholesterol Direct Vitamin B12 Urine WBC (Auto) Fluid Glucose Fluid Total Protein Vancomycin Trough Crossmatch 11/08/21 11/08/21 11/08/21 03:10 18:05 23:43 WBC RBC Hgb Hct MCV MCH MCHC RDW Plt Count Eos % (Auto) Eos # (Auto) Seg Neuts % (Manual) Lymphocytes % (Manual) Seg Neutrophils # Seg Neutrophils # Man Lymphocytes # (Manual) Monocytes # (Manual) PT INR D-Dimer ABG pH ABG pO2 127.4 H ABG HCO3 ABG O2 Saturation ABG Base Excess -3.4 L ABG Hemoglobin 7.4 L Oxyhemoglobin Sodium Potassium Chloride Carbon Dioxide BUN Creatinine Glucose POC Glucose 113 H 141 H Lactic Acid Calcium Phosphorus Magnesium AST ALT Alkaline Phosphatase Lactate Dehydrogenase Troponin T C-Reactive Protein NT-Pro-B Natriuret Pep Total Protein Albumin LDL Cholesterol Direct Vitamin B12 Urine WBC (Auto) Fluid Glucose Fluid Total Protein Vancomycin Trough Crossmatch 11/08/21 11/08/2111/09/22 Unknown Unknown 02:00 WBC 14.5 H RBC 3.35 L Hgb 7.5 L 8.1 L Hct 25.4 L 27.6 L MCV 76 L 76 L MCH 23 L 22 L MCHC RDW 19.9 H 19.9 H Plt Count Eos % (Auto) Eos # (Auto) Seg Neuts % (Manual) Lymphocytes % (Manual) Seg Neutrophils # Seg Neutrophils # Man Lymphocytes # (Manual) Monocytes # (Manual) PT INR D-Dimer ABG pH ABG pO2 ABG HCO3 ABG O2 Saturation ABG Base Excess ABG Hemoglobin Oxyhemoglobin Sodium 154 H D Potassium 3.3 L Chloride 120.7 H Carbon Dioxide 20 L BUN 38 H Creatinine Glucose POC Glucose Lactic Acid Calcium 8.3 L Phosphorus Magnesium AST ALT Alkaline Phosphatase Lactate Dehydrogenase Troponin T C-Reactive Protein NT-Pro-B Natriuret Pep Total Protein Albumin LDL Cholesterol Direct Vitamin B12 Urine WBC (Auto) Fluid Glucose Fluid Total Protein Vancomycin Trough Crossmatch 11/09/21 11/09/21 11/09/21 02:00 02:31 05:12 WBC RBC Hgb Hct MCV MCH MCHC RDW Plt Count Eos % (Auto) Eos # (Auto) Seg Neuts % (Manual) Lymphocytes % (Manual) Seg Neutrophils # Seg Neutrophils # Man Lymphocytes # (Manual) Monocytes # (Manual) PT INR D-Dimer ABG pH 7.479 H ABG pO2 121.3 H ABG HCO3 ABG O2 Saturation ABG Base Excess ABG Hemoglobin 7.3 L Oxyhemoglobin Sodium Potassium Chloride 112.5 H Carbon Dioxide BUN 33 H Creatinine Glucose 161 H POC Glucose 135 H Lactic Acid Calcium Phosphorus Magnesium AST 251 H ALT 481 H Alkaline Phosphatase Lactate Dehydrogenase Troponin T C-Reactive Protein NT-Pro-B Natriuret Pep Total Protein 5.0 L Albumin 2.8 L LDL Cholesterol Direct Vitamin B12 Urine WBC (Auto) Fluid Glucose Fluid Total Protein Vancomycin Trough Crossmatch 11/09/21 11/09/21 11/09/21 11:33 16:32 23:28 WBC RBC Hgb Hct MCV MCH MCHC RDW Plt Count Eos % (Auto) Eos # (Auto) Seg Neuts % (Manual) Lymphocytes % (Manual) Seg Neutrophils # Seg Neutrophils # Man Lymphocytes # (Manual) Monocytes # (Manual) PT INR D-Dimer ABG pH ABG pO2 ABG HCO3 ABG O2 Saturation ABG Base Excess ABG Hemoglobin Oxyhemoglobin Sodium Potassium Chloride Carbon Dioxide BUN Creatinine Glucose POC Glucose 132 H 133 H 143 H Lactic Acid Calcium Phosphorus Magnesium AST ALT Alkaline Phosphatase Lactate Dehydrogenase Troponin T C-Reactive Protein NT-Pro-B Natriuret Pep Total Protein Albumin LDL Cholesterol Direct Vitamin B12 Urine WBC (Auto) Fluid Glucose Fluid Total Protein Vancomycin Trough Crossmatch 11/10/21 11/10/21 11/10/21 04:00 04:00 05:35 WBC 16.0 H RBC 3.61 L Hgb 8.0 L Hct 27.1 L MCV 75 L MCH 22 L MCHC RDW 20.4 H Plt Count Eos % (Auto) Eos # (Auto) Seg Neuts % (Manual) Lymphocytes % (Manual) Seg Neutrophils # Seg Neutrophils # Man Lymphocytes # (Manual) Monocytes # (Manual) PT INR D-Dimer ABG pH ABG pO2 ABG HCO3 ABG O2 Saturation ABG Base Excess ABG Hemoglobin Oxyhemoglobin Sodium 149 H Potassium Chloride 114.1 H Carbon Dioxide BUN 31 H Creatinine Glucose 148 H POC Glucose 132 H Lactic Acid Calcium 8.2 L Phosphorus Magnesium AST ALT Alkaline Phosphatase Lactate Dehydrogenase Troponin T C-Reactive Protein NT-Pro-B Natriuret Pep Total Protein Albumin LDL Cholesterol Direct Vitamin B12 Urine WBC (Auto) Fluid Glucose Fluid Total Protein Vancomycin Trough Crossmatch 11/10/21 11/10/21 11/10/21 11:31 14:08 15:35 WBC RBC Hgb Hct MCV MCH MCHC RDW Plt Count Eos % (Auto) Eos # (Auto) Seg Neuts % (Manual) Lymphocytes % (Manual) Seg Neutrophils # Seg Neutrophils # Man Lymphocytes # (Manual) Monocytes # (Manual) PT INR D-Dimer ABG pH ABG pO2 126.6 H ABG HCO3 ABG O2 Saturation ABG Base Excess ABG Hemoglobin 7.4 L Oxyhemoglobin Sodium Potassium Chloride Carbon Dioxide BUN Creatinine Glucose POC Glucose 147 H Lactic Acid Calcium Phosphorus Magnesium AST ALT Alkaline Phosphatase Lactate Dehydrogenase Troponin T C-Reactive Protein NT-Pro-B Natriuret Pep Total Protein Albumin LDL Cholesterol Direct Vitamin B12 1823 H Urine WBC (Auto) Fluid Glucose Fluid Total Protein Vancomycin Trough Crossmatch 11/10/21 11/11/21 11/11/21 17:53 00:55 04:28 WBC RBC Hgb Hct MCV MCH MCHC RDW Plt Count Eos % (Auto) Eos # (Auto) Seg Neuts % (Manual) Lymphocytes % (Manual) Seg Neutrophils # Seg Neutrophils # Man Lymphocytes # (Manual) Monocytes # (Manual) PT INR D-Dimer ABG pH ABG pO2 ABG HCO3 ABG O2 Saturation ABG Base Excess ABG Hemoglobin Oxyhemoglobin Sodium 149 H Potassium Chloride 112.2 H Carbon Dioxide BUN 34 H Creatinine Glucose 148 H POC Glucose 140 H 145 H Lactic Acid Calcium 7.9 L Phosphorus Magnesium AST 53 H ALT 203 H Alkaline Phosphatase Lactate Dehydrogenase Troponin T C-Reactive Protein NT-Pro-B Natriuret Pep Total Protein 4.9 L Albumin 2.6 L LDL Cholesterol Direct Vitamin B12 Urine WBC (Auto) Fluid Glucose Fluid Total Protein Vancomycin Trough Crossmatch 11/11/21 11/11/21 11/11/21 04:28 04:28 05:28 WBC 20.9 H RBC 3.47 L Hgb 7.5 L Hct 26.0 L MCV 75 L MCH 22 L MCHC 29 L RDW 21.6 H Plt Count 132 L Eos % (Auto) Eos # (Auto) Seg Neuts % (Manual) Lymphocytes % (Manual) Seg Neutrophils # Seg Neutrophils # Man Lymphocytes # (Manual) Monocytes # (Manual) PT INR D-Dimer 2655.00 H ABG pH ABG pO2 ABG HCO3 ABG O2 Saturation ABG Base Excess ABG Hemoglobin Oxyhemoglobin Sodium Potassium Chloride Carbon Dioxide BUN Creatinine Glucose POC Glucose 154 H Lactic Acid Calcium Phosphorus Magnesium AST ALT Alkaline Phosphatase Lactate Dehydrogenase Troponin T C-Reactive Protein NT-Pro-B Natriuret Pep Total Protein Albumin LDL Cholesterol Direct Vitamin B12 Urine WBC (Auto) Fluid Glucose Fluid Total Protein Vancomycin Trough Crossmatch 11/11/21 11/11/21 11/12/21 12:38 18:13 00:14 WBC RBC Hgb Hct MCV MCH MCHC RDW Plt Count Eos % (Auto) Eos # (Auto) Seg Neuts % (Manual) Lymphocytes % (Manual) Seg Neutrophils # Seg Neutrophils # Man Lymphocytes # (Manual) Monocytes # (Manual) PT INR D-Dimer ABG pH ABG pO2 ABG HCO3 ABG O2 Saturation ABG Base Excess ABG Hemoglobin Oxyhemoglobin Sodium Potassium Chloride Carbon Dioxide BUN Creatinine Glucose POC Glucose 137 H 108 H 137 H Lactic Acid Calcium Phosphorus Magnesium AST ALT Alkaline Phosphatase Lactate Dehydrogenase Troponin T C-Reactive Protein NT-Pro-B Natriuret Pep Total Protein Albumin LDL Cholesterol Direct Vitamin B12 Urine WBC (Auto) Fluid Glucose Fluid Total Protein Vancomycin Trough Crossmatch 11/12/21 11/12/21 11/12/21 05:40 06:24 11:12 WBC RBC Hgb Hct MCV MCH MCHC RDW Plt Count Eos % (Auto) Eos # (Auto) Seg Neuts % (Manual) Lymphocytes % (Manual) Seg Neutrophils # Seg Neutrophils # Man Lymphocytes # (Manual) Monocytes # (Manual) PT INR D-Dimer ABG pH 7.586 H ABG pO2 150.6 H ABG HCO3 27.2 H ABG O2 Saturation 99.1 H ABG Base Excess 5.2 H ABG Hemoglobin 7.5 L Oxyhemoglobin Sodium Potassium Chloride Carbon Dioxide BUN Creatinine Glucose POC Glucose 132 H 140 H Lactic Acid Calcium Phosphorus Magnesium AST ALT Alkaline Phosphatase Lactate Dehydrogenase Troponin T C-Reactive Protein NT-Pro-B Natriuret Pep Total Protein Albumin LDL Cholesterol Direct Vitamin B12 Urine WBC (Auto) Fluid Glucose Fluid Total Protein Vancomycin Trough Crossmatch 11/12/21 11/12/21 11/12/21 14:50 14:50 17:13 WBC 19.8 H RBC 3.27 L Hgb 7.1 L Hct 24.5 L MCV 75 L MCH 22 L MCHC 29 L RDW 22.3 H Plt Count Eos % (Auto) Eos # (Auto) Seg Neuts % (Manual) Lymphocytes % (Manual) Seg Neutrophils # Seg Neutrophils # Man Lymphocytes # (Manual) Monocytes # (Manual) PT INR D-Dimer ABG pH ABG pO2 ABG HCO3 ABG O2 Saturation ABG Base Excess ABG Hemoglobin Oxyhemoglobin Sodium 150 H Potassium 3.3 L Chloride 112.0 H Carbon Dioxide BUN 40 H Creatinine Glucose 151 H POC Glucose 121 H Lactic Acid Calcium 7.4 L Phosphorus 1.70 L Magnesium 1.40 L AST ALT Alkaline Phosphatase Lactate Dehydrogenase Troponin T C-Reactive Protein NT-Pro-B Natriuret Pep Total Protein Albumin LDL Cholesterol Direct Vitamin B12 Urine WBC (Auto) Fluid Glucose Fluid Total Protein Vancomycin Trough Crossmatch 11/12/21 11/13/21 11/13/21 23:19 05:34 06:30 WBC RBC Hgb Hct MCV MCH MCHC RDW Plt Count Eos % (Auto) Eos # (Auto) Seg Neuts % (Manual) Lymphocytes % (Manual) Seg Neutrophils # Seg Neutrophils # Man Lymphocytes # (Manual) Monocytes # (Manual) PT INR D-Dimer ABG pH ABG pO2 ABG HCO3 ABG O2 Saturation ABG Base Excess ABG Hemoglobin Oxyhemoglobin Sodium 149 H Potassium Chloride 60.0 L Carbon Dioxide BUN 40 H Creatinine Glucose 146 H POC Glucose 113 H 132 H Lactic Acid Calcium 7.3 L Phosphorus Magnesium 2.40 H AST ALT 72 H Alkaline Phosphatase Lactate Dehydrogenase Troponin T C-Reactive Protein NT-Pro-B Natriuret Pep Total Protein 5.2 L Albumin 2.2 L LDL Cholesterol Direct Vitamin B12 Urine WBC (Auto) Fluid Glucose Fluid Total Protein Vancomycin Trough Crossmatch 11/13/21 11/13/21 11/13/21 06:30 08:30 11:19 WBC 21.2 H RBC 3.12 L Hgb 6.8 L Hct 23.2 L MCV 74 L MCH 22 L MCHC 29 L RDW 22.2 H Plt Count 135 L Eos % (Auto) Eos # (Auto) Seg Neuts % (Manual) Lymphocytes % (Manual) Seg Neutrophils # Seg Neutrophils # Man Lymphocytes # (Manual) Monocytes # (Manual) PT INR D-Dimer ABG pH ABG pO2 ABG HCO3 ABG O2 Saturation ABG Base Excess ABG Hemoglobin Oxyhemoglobin Sodium Potassium Chloride Carbon Dioxide BUN Creatinine Glucose POC Glucose 136 H Lactic Acid Calcium Phosphorus Magnesium AST ALT Alkaline Phosphatase Lactate Dehydrogenase Troponin T C-Reactive Protein NT-Pro-B Natriuret Pep Total Protein Albumin LDL Cholesterol Direct Vitamin B12 Urine WBC (Auto) Fluid Glucose Fluid Total Protein Vancomycin Trough Crossmatch See Detail 11/13/21 11/14/21 11/14/21 18:21 00:01 04:46 WBC 20.0 H RBC 3.41 L Hgb 7.9 L Hct 26.8 L MCV MCH 23 L MCHC 29 L RDW 24.0 H Plt Count Eos % (Auto) Eos # (Auto) Seg Neuts % (Manual) Lymphocytes % (Manual) Seg Neutrophils # Seg Neutrophils # Man Lymphocytes # (Manual) Monocytes # (Manual) PT INR D-Dimer ABG pH ABG pO2 ABG HCO3 ABG O2 Saturation ABG Base Excess ABG Hemoglobin Oxyhemoglobin Sodium Potassium Chloride Carbon Dioxide BUN Creatinine Glucose POC Glucose 149 H 141 H Lactic Acid Calcium Phosphorus Magnesium AST ALT Alkaline Phosphatase Lactate Dehydrogenase Troponin T C-Reactive Protein NT-Pro-B Natriuret Pep Total Protein Albumin LDL Cholesterol Direct Vitamin B12 Urine WBC (Auto) Fluid Glucose Fluid Total Protein Vancomycin Trough Crossmatch 11/14/21 11/14/21 11/14/21 04:46 05:10 11:10 WBC RBC Hgb Hct MCV MCH MCHC RDW Plt Count Eos % (Auto) Eos # (Auto) Seg Neuts % (Manual) Lymphocytes % (Manual) Seg Neutrophils # Seg Neutrophils # Man Lymphocytes # (Manual) Monocytes # (Manual) PT INR D-Dimer ABG pH ABG pO2 ABG HCO3 ABG O2 Saturation ABG Base Excess ABG Hemoglobin Oxyhemoglobin Sodium 148 H Potassium Chloride 113.1 H Carbon Dioxide BUN 43 H Creatinine Glucose 140 H POC Glucose 132 H 133 H Lactic Acid Calcium 7.5 L Phosphorus Magnesium AST ALT Alkaline Phosphatase Lactate Dehydrogenase Troponin T C-Reactive Protein NT-Pro-B Natriuret Pep Total Protein Albumin LDL Cholesterol Direct Vitamin B12 Urine WBC (Auto) Fluid Glucose Fluid Total Protein Vancomycin Trough Crossmatch 11/14/21 11/14/21 11/14/21 16:14 17:48 23:23 WBC RBC Hgb Hct MCV MCH MCHC RDW Plt Count Eos % (Auto) Eos # (Auto) Seg Neuts % (Manual) Lymphocytes % (Manual) Seg Neutrophils # Seg Neutrophils # Man Lymphocytes # (Manual) Monocytes # (Manual) PT INR D-Dimer ABG pH ABG pO2 ABG HCO3 28.0 H ABG O2 Saturation ABG Base Excess 3.1 H ABG Hemoglobin 5.8 L Oxyhemoglobin 94.8 L Sodium Potassium Chloride Carbon Dioxide BUN Creatinine Glucose POC Glucose 130 H 136 H Lactic Acid Calcium Phosphorus Magnesium AST ALT Alkaline Phosphatase Lactate Dehydrogenase Troponin T C-Reactive Protein NT-Pro-B Natriuret Pep Total Protein Albumin LDL Cholesterol Direct Vitamin B12 Urine WBC (Auto) Fluid Glucose Fluid Total Protein Vancomycin Trough Crossmatch 11/15/21 11/15/21 11/15/21 05:20 05:50 05:50 WBC 19.9 H RBC 3.50 L Hgb 8.2 L Hct 27.9 L MCV MCH 23 L MCHC 29 L RDW 24.9 H Plt Count Eos % (Auto) Eos # (Auto) Seg Neuts % (Manual) Lymphocytes % (Manual) Seg Neutrophils # Seg Neutrophils # Man Lymphocytes # (Manual) Monocytes # (Manual) PT INR D-Dimer ABG pH ABG pO2 ABG HCO3 ABG O2 Saturation ABG Base Excess ABG Hemoglobin Oxyhemoglobin Sodium 149 H Potassium Chloride 112.0 H Carbon Dioxide BUN 48 H Creatinine Glucose 152 H POC Glucose 137 H Lactic Acid Calcium 7.9 L Phosphorus Magnesium AST ALT Alkaline Phosphatase Lactate Dehydrogenase Troponin T C-Reactive Protein NT-Pro-B Natriuret Pep Total Protein Albumin LDL Cholesterol Direct Vitamin B12 Urine WBC (Auto) Fluid Glucose Fluid Total Protein Vancomycin Trough Crossmatch 11/15/21 11/15/21 11/15/21 12:12 17:07 23:24 WBC RBC Hgb Hct MCV MCH MCHC RDW Plt Count Eos % (Auto) Eos # (Auto) Seg Neuts % (Manual) Lymphocytes % (Manual) Seg Neutrophils # Seg Neutrophils # Man Lymphocytes # (Manual) Monocytes # (Manual) PT INR D-Dimer ABG pH ABG pO2 ABG HCO3 ABG O2 Saturation ABG Base Excess ABG Hemoglobin Oxyhemoglobin Sodium Potassium Chloride Carbon Dioxide BUN Creatinine Glucose POC Glucose 114 H 135 H 123 H Lactic Acid Calcium Phosphorus Magnesium AST ALT Alkaline Phosphatase Lactate Dehydrogenase Troponin T C-Reactive Protein NT-Pro-B Natriuret Pep Total Protein Albumin LDL Cholesterol Direct Vitamin B12 Urine WBC (Auto) Fluid Glucose Fluid Total Protein Vancomycin Trough Crossmatch 11/16/21 11/16/21 11/16/21 05:21 10:00 10:00 WBC 21.7 H RBC 2.57 L Hgb 6.0 L Hct 20.2 L D MCV MCH 24 L MCHC RDW 26.3 H Plt Count Eos % (Auto) Eos # (Auto) Seg Neuts % (Manual) Lymphocytes % (Manual) Seg Neutrophils # Seg Neutrophils # Man Lymphocytes # (Manual) Monocytes # (Manual) PT INR D-Dimer ABG pH ABG pO2 ABG HCO3 ABG O2 Saturation ABG Base Excess ABG Hemoglobin Oxyhemoglobin Sodium 153 H Potassium Chloride 114.9 H Carbon Dioxide BUN 74 H Creatinine Glucose 155 H POC Glucose 127 H Lactic Acid Calcium 8.1 L Phosphorus Magnesium AST ALT Alkaline Phosphatase Lactate Dehydrogenase Troponin T C-Reactive Protein NT-Pro-B Natriuret Pep Total Protein Albumin LDL Cholesterol Direct Vitamin B12 Urine WBC (Auto) Fluid Glucose Fluid Total Protein Vancomycin Trough Crossmatch 11/16/21 11/16/21 11/16/21 11:34 14:00 15:25 WBC 17.2 H RBC 2.08 L Hgb 4.7 L* Hct 16.2 L* MCV 78 L MCH 23 L MCHC 29 L RDW 26.0 H Plt Count Eos % (Auto) Eos # (Auto) Seg Neuts % (Manual) 87.0 H Lymphocytes % (Manual) 8.0 L Seg Neutrophils # Seg Neutrophils # Man 15.0 H Lymphocytes # (Manual) Monocytes # (Manual) 0.9 H PT INR D-Dimer ABG pH ABG pO2 ABG HCO3 ABG O2 Saturation ABG Base Excess ABG Hemoglobin Oxyhemoglobin Sodium Potassium Chloride Carbon Dioxide BUN Creatinine Glucose POC Glucose 131 H Lactic Acid Calcium Phosphorus Magnesium AST ALT Alkaline Phosphatase Lactate Dehydrogenase Troponin T C-Reactive Protein NT-Pro-B Natriuret Pep Total Protein Albumin LDL Cholesterol Direct Vitamin B12 Urine WBC (Auto) Fluid Glucose Fluid Total Protein Vancomycin Trough Crossmatch See Detail 11/16/21 11/16/21 11/16/21 15:25 17:21 22:43 WBC RBC Hgb 8.6 L D Hct 27.7 L D MCV MCH MCHC RDW Plt Count Eos % (Auto) Eos # (Auto) Seg Neuts % (Manual) Lymphocytes % (Manual) Seg Neutrophils # Seg Neutrophils # Man Lymphocytes # (Manual) Monocytes # (Manual) PT INR D-Dimer ABG pH ABG pO2 ABG HCO3 ABG O2 Saturation ABG Base Excess ABG Hemoglobin Oxyhemoglobin Sodium 148 H Potassium Chloride 113.2 H Carbon Dioxide BUN 84 H Creatinine Glucose 164 H POC Glucose 124 H Lactic Acid Calcium 7.6 L Phosphorus Magnesium AST ALT Alkaline Phosphatase Lactate Dehydrogenase Troponin T C-Reactive Protein NT-Pro-B Natriuret Pep Total Protein Albumin LDL Cholesterol Direct Vitamin B12 Urine WBC (Auto) Fluid Glucose Fluid Total Protein Vancomycin Trough Crossmatch 11/16/21 11/17/21 11/17/21 23:07 05:33 05:56 WBC 25.1 H RBC 3.47 L Hgb 8.7 L Hct 28.5 L MCV MCH 25 L MCHC RDW 22.3 H Plt Count Eos % (Auto) Eos # (Auto) Seg Neuts % (Manual) Lymphocytes % (Manual) Seg Neutrophils # Seg Neutrophils # Man Lymphocytes # (Manual) Monocytes # (Manual) PT INR D-Dimer ABG pH ABG pO2 ABG HCO3 ABG O2 Saturation ABG Base Excess ABG Hemoglobin Oxyhemoglobin Sodium Potassium Chloride Carbon Dioxide BUN Creatinine Glucose POC Glucose 128 H 133 H Lactic Acid Calcium Phosphorus Magnesium AST ALT Alkaline Phosphatase Lactate Dehydrogenase Troponin T C-Reactive Protein NT-Pro-B Natriuret Pep Total Protein Albumin LDL Cholesterol Direct Vitamin B12 Urine WBC (Auto) Fluid Glucose Fluid Total Protein Vancomycin Trough Crossmatch 11/17/21 11/17/21 11/17/21 05:56 11:00 11:55 WBC RBC Hgb 8.3 L Hct 26.9 L MCV MCH MCHC RDW Plt Count Eos % (Auto) Eos # (Auto) Seg Neuts % (Manual) Lymphocytes % (Manual) Seg Neutrophils # Seg Neutrophils # Man Lymphocytes # (Manual) Monocytes # (Manual) PT INR D-Dimer ABG pH ABG pO2 ABG HCO3 ABG O2 Saturation ABG Base Excess ABG Hemoglobin Oxyhemoglobin Sodium 151 H Potassium Chloride 113.6 H Carbon Dioxide BUN 85 H Creatinine Glucose 132 H POC Glucose 121 H Lactic Acid Calcium 7.8 L Phosphorus Magnesium AST ALT Alkaline Phosphatase Lactate Dehydrogenase Troponin T C-Reactive Protein NT-Pro-B Natriuret Pep Total Protein 5.1 L Albumin 2.2 L LDL Cholesterol Direct Vitamin B12 Urine WBC (Auto) Fluid Glucose Fluid Total Protein Vancomycin Trough Crossmatch 11/17/21 11/17/21 11/18/21 18:04 18:55 00:26 WBC RBC Hgb 7.5 L 7.1 L Hct 24.8 L 23.6 L MCV MCH MCHC RDW Plt Count Eos % (Auto) Eos # (Auto) Seg Neuts % (Manual) Lymphocytes % (Manual) Seg Neutrophils # Seg Neutrophils # Man Lymphocytes # (Manual) Monocytes # (Manual) PT INR D-Dimer ABG pH ABG pO2 ABG HCO3 ABG O2 Saturation ABG Base Excess ABG Hemoglobin Oxyhemoglobin Sodium Potassium Chloride Carbon Dioxide BUN Creatinine Glucose POC Glucose 144 H Lactic Acid Calcium Phosphorus Magnesium AST ALT Alkaline Phosphatase Lactate Dehydrogenase Troponin T C-Reactive Protein NT-Pro-B Natriuret Pep Total Protein Albumin LDL Cholesterol Direct Vitamin B12 Urine WBC (Auto) Fluid Glucose Fluid Total Protein Vancomycin Trough Crossmatch 11/18/21 11/18/21 11/18/21 00:43 05:10 05:10 WBC 12.5 H RBC 2.39 L Hgb 6.1 L Hct 20.2 L MCV MCH 25 L MCHC RDW 23.2 H Plt Count Eos % (Auto) Eos # (Auto) Seg Neuts % (Manual) Lymphocytes % (Manual) Seg Neutrophils # Seg Neutrophils # Man Lymphocytes # (Manual) Monocytes # (Manual) PT INR D-Dimer ABG pH ABG pO2 ABG HCO3 ABG O2 Saturation ABG Base Excess ABG Hemoglobin Oxyhemoglobin Sodium 131 L D Potassium 2.9 L* D Chloride 97.8 L Carbon Dioxide BUN 58 H Creatinine Glucose 665 H* POC Glucose 139 H Lactic Acid Calcium 7.0 L Phosphorus 2.20 L D Magnesium 1.50 L AST ALT Alkaline Phosphatase Lactate Dehydrogenase Troponin T C-Reactive Protein NT-Pro-B Natriuret Pep Total Protein Albumin LDL Cholesterol Direct Vitamin B12 Urine WBC (Auto) Fluid Glucose Fluid Total Protein Vancomycin Trough Crossmatch 11/18/21 11/18/21 11/18/21 05:23 07:10 10:45 WBC RBC Hgb Hct MCV MCH MCHC RDW Plt Count Eos % (Auto) Eos # (Auto) Seg Neuts % (Manual) Lymphocytes % (Manual) Seg Neutrophils # Seg Neutrophils # Man Lymphocytes # (Manual) Monocytes # (Manual) PT INR D-Dimer ABG pH ABG pO2 ABG HCO3 ABG O2 Saturation ABG Base Excess ABG Hemoglobin Oxyhemoglobin Sodium 148 H D Potassium 3.1 L Chloride 111.9 H Carbon Dioxide BUN 63 H Creatinine Glucose 141 H POC Glucose 124 H Lactic Acid Calcium 8.1 L D Phosphorus Magnesium AST ALT Alkaline Phosphatase Lactate Dehydrogenase Troponin T C-Reactive Protein NT-Pro-B Natriuret Pep Total Protein Albumin LDL Cholesterol Direct Vitamin B12 Urine WBC (Auto) Fluid Glucose Fluid Total Protein Vancomycin Trough Crossmatch See Detail 11/18/21 11/19/21 11/19/21 11:57 00:19 04:55 WBC RBC 3.35 L Hgb 9.0 L 8.9 L Hct 28.3 L D 28.1 L MCV MCH 27 L MCHC RDW 20.3 H Plt Count Eos % (Auto) Eos # (Auto) Seg Neuts % (Manual) Lymphocytes % (Manual) Seg Neutrophils # Seg Neutrophils # Man Lymphocytes # (Manual) Monocytes # (Manual) PT INR D-Dimer ABG pH ABG pO2 ABG HCO3 ABG O2 Saturation ABG Base Excess ABG Hemoglobin Oxyhemoglobin Sodium Potassium Chloride Carbon Dioxide BUN Creatinine Glucose POC Glucose 119 H Lactic Acid Calcium Phosphorus Magnesium AST ALT Alkaline Phosphatase Lactate Dehydrogenase Troponin T C-Reactive Protein NT-Pro-B Natriuret Pep Total Protein Albumin LDL Cholesterol Direct Vitamin B12 Urine WBC (Auto) Fluid Glucose Fluid Total Protein Vancomycin Trough Crossmatch 11/19/21 11/19/21 11/20/21 04:55 05:42 00:55 WBC RBC Hgb 9.0 L Hct 28.6 L MCV MCH MCHC RDW Plt Count Eos % (Auto) Eos # (Auto) Seg Neuts % (Manual) Lymphocytes % (Manual) Seg Neutrophils # Seg Neutrophils # Man Lymphocytes # (Manual) Monocytes # (Manual) PT INR D-Dimer ABG pH ABG pO2 ABG HCO3 ABG O2 Saturation ABG Base Excess ABG Hemoglobin Oxyhemoglobin Sodium Potassium 3.5 L Chloride 108.6 H Carbon Dioxide BUN 47 H Creatinine Glucose 207 H POC Glucose 63 L Lactic Acid Calcium 7.1 L Phosphorus Magnesium AST ALT Alkaline Phosphatase Lactate Dehydrogenase Troponin T C-Reactive Protein NT-Pro-B Natriuret Pep Total Protein Albumin LDL Cholesterol Direct Vitamin B12 Urine WBC (Auto) Fluid Glucose Fluid Total Protein Vancomycin Trough Crossmatch 11/20/21 11/20/21 11/20/21 05:40 05:40 Unknown WBC RBC 3.40 L Hgb 9.1 L Hct 28.8 L MCV MCH 27 L MCHC RDW 20.7 H Plt Count Eos % (Auto) Eos # (Auto) Seg Neuts % (Manual) Lymphocytes % (Manual) Seg Neutrophils # Seg Neutrophils # Man Lymphocytes # (Manual) Monocytes # (Manual) PT INR D-Dimer ABG pH ABG pO2 ABG HCO3 ABG O2 Saturation ABG Base Excess -2.7 L ABG Hemoglobin 9.5 L Oxyhemoglobin 94.3 L Sodium Potassium 3.5 L Chloride 108.9 H Carbon Dioxide BUN 37 H Creatinine Glucose 117 H POC Glucose Lactic Acid Calcium 7.5 L Phosphorus Magnesium AST ALT Alkaline Phosphatase Lactate Dehydrogenase Troponin T C-Reactive Protein NT-Pro-B Natriuret Pep Total Protein Albumin LDL Cholesterol Direct Vitamin B12 Urine WBC (Auto) Fluid Glucose Fluid Total Protein Vancomycin Trough Crossmatch 11/21/21 11/21/21 11/21/21 04:30 04:30 16:00 WBC RBC 3.25 L Hgb 8.6 L Hct 28.1 L MCV MCH 26 L MCHC RDW 20.7 H Plt Count Eos % (Auto) Eos # (Auto) Seg Neuts % (Manual) Lymphocytes % (Manual) Seg Neutrophils # Seg Neutrophils # Man Lymphocytes # (Manual) Monocytes # (Manual) PT INR D-Dimer ABG pH ABG pO2 114.2 H ABG HCO3 ABG O2 Saturation ABG Base Excess ABG Hemoglobin 9.1 L Oxyhemoglobin Sodium 134 L Potassium Chloride Carbon Dioxide 20 L BUN 34 H Creatinine Glucose POC Glucose Lactic Acid Calcium 7.1 L Phosphorus Magnesium AST ALT Alkaline Phosphatase Lactate Dehydrogenase Troponin T C-Reactive Protein NT-Pro-B Natriuret Pep Total Protein Albumin LDL Cholesterol Direct Vitamin B12 Urine WBC (Auto) Fluid Glucose Fluid Total Protein Vancomycin Trough Crossmatch 11/22/21 11/22/21 11/22/21 07:07 07:07 23:54 WBC RBC 3.30 L Hgb 9.0 L Hct 28.5 L MCV MCH 27 L MCHC RDW 21.0 H Plt Count Eos % (Auto) Eos # (Auto) Seg Neuts % (Manual) Lymphocytes % (Manual) Seg Neutrophils # Seg Neutrophils # Man Lymphocytes # (Manual) Monocytes # (Manual) PT INR D-Dimer ABG pH ABG pO2 ABG HCO3 ABG O2 Saturation ABG Base Excess ABG Hemoglobin Oxyhemoglobin Sodium Potassium Chloride Carbon Dioxide BUN 32 H Creatinine Glucose 106 H POC Glucose 110 H Lactic Acid Calcium 7.5 L Phosphorus Magnesium AST ALT Alkaline Phosphatase Lactate Dehydrogenase Troponin T C-Reactive Protein NT-Pro-B Natriuret Pep Total Protein Albumin LDL Cholesterol Direct Vitamin B12 Urine WBC (Auto) Fluid Glucose Fluid Total Protein Vancomycin Trough Crossmatch 11/23/21 11/23/21 11/23/21 04:38 04:38 06:01 WBC RBC 3.23 L Hgb 8.8 L Hct 28.0 L MCV MCH 27 L MCHC RDW 21.3 H Plt Count Eos % (Auto) Eos # (Auto) Seg Neuts % (Manual) Lymphocytes % (Manual) Seg Neutrophils # Seg Neutrophils # Man Lymphocytes # (Manual) Monocytes # (Manual) PT INR D-Dimer ABG pH ABG pO2 ABG HCO3 ABG O2 Saturation ABG Base Excess ABG Hemoglobin Oxyhemoglobin Sodium 136 L Potassium Chloride Carbon Dioxide 20 L BUN 32 H Creatinine Glucose 109 H POC Glucose 115 H Lactic Acid Calcium 7.7 L Phosphorus Magnesium AST ALT Alkaline Phosphatase Lactate Dehydrogenase Troponin T C-Reactive Protein NT-Pro-B Natriuret Pep Total Protein Albumin LDL Cholesterol Direct Vitamin B12 Urine WBC (Auto) Fluid Glucose Fluid Total Protein Vancomycin Trough Crossmatch 11/23/21 11/24/21 11/24/21 11:40 00:03 04:13 WBC RBC 3.18 L Hgb 8.5 L Hct 27.5 L MCV MCH 27 L MCHC RDW 21.6 H Plt Count Eos % (Auto) Eos # (Auto) Seg Neuts % (Manual) Lymphocytes % (Manual) Seg Neutrophils # Seg Neutrophils # Man Lymphocytes # (Manual) Monocytes # (Manual) PT INR D-Dimer ABG pH ABG pO2 ABG HCO3 ABG O2 Saturation ABG Base Excess ABG Hemoglobin Oxyhemoglobin Sodium Potassium Chloride Carbon Dioxide BUN Creatinine Glucose POC Glucose 117 H 111 H Lactic Acid Calcium Phosphorus Magnesium AST ALT Alkaline Phosphatase Lactate Dehydrogenase Troponin T C-Reactive Protein NT-Pro-B Natriuret Pep Total Protein Albumin LDL Cholesterol Direct Vitamin B12 Urine WBC (Auto) Fluid Glucose Fluid Total Protein Vancomycin Trough Crossmatch 11/24/21 11/24/21 11/24/21 04:13 05:30 11:10 WBC RBC Hgb Hct MCV MCH MCHC RDW Plt Count Eos % (Auto) Eos # (Auto) Seg Neuts % (Manual) Lymphocytes % (Manual) Seg Neutrophils # Seg Neutrophils # Man Lymphocytes # (Manual) Monocytes # (Manual) PT INR D-Dimer ABG pH ABG pO2 ABG HCO3 ABG O2 Saturation ABG Base Excess ABG Hemoglobin Oxyhemoglobin Sodium Potassium Chloride Carbon Dioxide BUN 31 H Creatinine Glucose 101 H POC Glucose 115 H 107 H Lactic Acid Calcium 7.7 L Phosphorus Magnesium AST ALT Alkaline Phosphatase Lactate Dehydrogenase Troponin T C-Reactive Protein NT-Pro-B Natriuret Pep Total Protein Albumin LDL Cholesterol Direct Vitamin B12 Urine WBC (Auto) Fluid Glucose Fluid Total Protein Vancomycin Trough Crossmatch 11/24/21 11/24/21 11/25/21 16:34 17:57 05:12 WBC RBC 3.11 L Hgb 8.2 L Hct 26.6 L MCV MCH 26 L MCHC RDW 21.3 H Plt Count Eos % (Auto) Eos # (Auto) Seg Neuts % (Manual) Lymphocytes % (Manual) Seg Neutrophils # Seg Neutrophils # Man Lymphocytes # (Manual) Monocytes # (Manual) PT INR D-Dimer ABG pH ABG pO2 ABG HCO3 ABG O2 Saturation ABG Base Excess ABG Hemoglobin Oxyhemoglobin Sodium Potassium Chloride Carbon Dioxide BUN Creatinine Glucose POC Glucose 115 H 110 H Lactic Acid Calcium Phosphorus Magnesium AST ALT Alkaline Phosphatase Lactate Dehydrogenase Troponin T C-Reactive Protein NT-Pro-B Natriuret Pep Total Protein Albumin LDL Cholesterol Direct Vitamin B12 Urine WBC (Auto) Fluid Glucose Fluid Total Protein Vancomycin Trough Crossmatch 11/25/21 11/25/21 11/26/21 05:12 11:20 05:00 WBC RBC 3.30 L Hgb 8.8 L Hct 28.2 L MCV MCH 27 L MCHC RDW 20.7 H Plt Count Eos % (Auto) Eos # (Auto) Seg Neuts % (Manual) Lymphocytes % (Manual) Seg Neutrophils # Seg Neutrophils # Man Lymphocytes # (Manual) Monocytes # (Manual) PT INR D-Dimer ABG pH ABG pO2 ABG HCO3 ABG O2 Saturation ABG Base Excess ABG Hemoglobin Oxyhemoglobin Sodium Potassium Chloride Carbon Dioxide BUN 32 H Creatinine Glucose 118 H POC Glucose 118 H Lactic Acid Calcium 8.2 L Phosphorus Magnesium AST ALT Alkaline Phosphatase Lactate Dehydrogenase Troponin T C-Reactive Protein NT-Pro-B Natriuret Pep Total Protein Albumin LDL Cholesterol Direct Vitamin B12 Urine WBC (Auto) Fluid Glucose Fluid Total Protein Vancomycin Trough Crossmatch 11/26/21 11/26/21 11/26/21 05:00 05:00 05:44 WBC RBC Hgb Hct MCV MCH MCHC RDW Plt Count Eos % (Auto) Eos # (Auto) Seg Neuts % (Manual) Lymphocytes % (Manual) Seg Neutrophils # Seg Neutrophils # Man Lymphocytes # (Manual) Monocytes # (Manual) PT 16.9 H INR 1.24 H D-Dimer ABG pH ABG pO2 ABG HCO3 ABG O2 Saturation ABG Base Excess ABG Hemoglobin Oxyhemoglobin Sodium Potassium Chloride Carbon Dioxide BUN 31 H Creatinine Glucose 104 H POC Glucose 110 H Lactic Acid Calcium 7.9 L Phosphorus Magnesium AST ALT Alkaline Phosphatase Lactate Dehydrogenase Troponin T C-Reactive Protein NT-Pro-B Natriuret Pep Total Protein Albumin LDL Cholesterol Direct Vitamin B12 Urine WBC (Auto) Fluid Glucose Fluid Total Protein Vancomycin Trough Crossmatch 11/26/21 11/27/21 11/27/21 23:55 07:40 07:40 WBC RBC 3.18 L Hgb 8.5 L Hct 27.0 L MCV MCH 27 L MCHC RDW 21.2 H Plt Count Eos % (Auto) Eos # (Auto) Seg Neuts % (Manual) Lymphocytes % (Manual) Seg Neutrophils # Seg Neutrophils # Man Lymphocytes # (Manual) Monocytes # (Manual) PT INR D-Dimer ABG pH ABG pO2 ABG HCO3 ABG O2 Saturation ABG Base Excess ABG Hemoglobin Oxyhemoglobin Sodium Potassium Chloride Carbon Dioxide BUN 27 H Creatinine Glucose 112 H POC Glucose 63 L Lactic Acid Calcium 7.6 L Phosphorus Magnesium AST ALT Alkaline Phosphatase Lactate Dehydrogenase Troponin T C-Reactive Protein NT-Pro-B Natriuret Pep Total Protein Albumin LDL Cholesterol Direct Vitamin B12 Urine WBC (Auto) Fluid Glucose Fluid Total Protein Vancomycin Trough Crossmatch 11/27/21 11/27/21 11/27/21 12:04 13:40 13:40 WBC RBC 3.31 L Hgb 8.7 L Hct 28.0 L MCV MCH 26 L MCHC RDW 20.7 H Plt Count Eos % (Auto) Eos # (Auto) Seg Neuts % (Manual) Lymphocytes % (Manual) Seg Neutrophils # Seg Neutrophils # Man Lymphocytes # (Manual) Monocytes # (Manual) PT INR D-Dimer ABG pH ABG pO2 ABG HCO3 ABG O2 Saturation ABG Base Excess ABG Hemoglobin Oxyhemoglobin Sodium 136 L Potassium Chloride Carbon Dioxide BUN 25 H Creatinine Glucose 127 H POC Glucose 109 H Lactic Acid Calcium 7.6 L Phosphorus Magnesium 1.40 L AST ALT Alkaline Phosphatase Lactate Dehydrogenase Troponin T C-Reactive Protein NT-Pro-B Natriuret Pep Total Protein Albumin LDL Cholesterol Direct Vitamin B12 Urine WBC (Auto) Fluid Glucose Fluid Total Protein Vancomycin Trough Crossmatch 11/27/21 11/27/21 11/28/21 17:44 23:33 12:20 WBC RBC Hgb Hct MCV MCH MCHC RDW Plt Count Eos % (Auto) Eos # (Auto) Seg Neuts % (Manual) Lymphocytes % (Manual) Seg Neutrophils # Seg Neutrophils # Man Lymphocytes # (Manual) Monocytes # (Manual) PT INR D-Dimer ABG pH ABG pO2 ABG HCO3 ABG O2 Saturation ABG Base Excess ABG Hemoglobin Oxyhemoglobin Sodium Potassium Chloride Carbon Dioxide BUN Creatinine Glucose POC Glucose 107 H 108 H 114 H Lactic Acid Calcium Phosphorus Magnesium AST ALT Alkaline Phosphatase Lactate Dehydrogenase Troponin T C-Reactive Protein NT-Pro-B Natriuret Pep Total Protein Albumin LDL Cholesterol Direct Vitamin B12 Urine WBC (Auto) Fluid Glucose Fluid Total Protein Vancomycin Trough Crossmatch 11/29/21 11/29/21 11/29/21 00:09 03:20 03:20 WBC RBC 3.05 L Hgb 8.2 L Hct 25.8 L MCV MCH 27 L MCHC RDW 20.9 H Plt Count Eos % (Auto) Eos # (Auto) Seg Neuts % (Manual) Lymphocytes % (Manual) Seg Neutrophils # Seg Neutrophils # Man Lymphocytes # (Manual) Monocytes # (Manual) PT INR D-Dimer ABG pH ABG pO2 ABG HCO3 ABG O2 Saturation ABG Base Excess ABG Hemoglobin Oxyhemoglobin Sodium 133 L Potassium Chloride Carbon Dioxide BUN 24 H Creatinine Glucose 137 H POC Glucose 134 H Lactic Acid Calcium 7.4 L Phosphorus Magnesium AST ALT Alkaline Phosphatase Lactate Dehydrogenase Troponin T C-Reactive Protein NT-Pro-B Natriuret Pep Total Protein Albumin LDL Cholesterol Direct Vitamin B12 Urine WBC (Auto) Fluid Glucose Fluid Total Protein Vancomycin Trough Crossmatch 11/29/21 11/29/21 11/29/21 05:38 11:39 17:11 WBC RBC Hgb Hct MCV MCH MCHC RDW Plt Count Eos % (Auto) Eos # (Auto) Seg Neuts % (Manual) Lymphocytes % (Manual) Seg Neutrophils # Seg Neutrophils # Man Lymphocytes # (Manual) Monocytes # (Manual) PT INR D-Dimer ABG pH ABG pO2 ABG HCO3 ABG O2 Saturation ABG Base Excess ABG Hemoglobin Oxyhemoglobin Sodium Potassium Chloride Carbon Dioxide BUN Creatinine Glucose POC Glucose 117 H 143 H 124 H Lactic Acid Calcium Phosphorus Magnesium AST ALT Alkaline Phosphatase Lactate Dehydrogenase Troponin T C-Reactive Protein NT-Pro-B Natriuret Pep Total Protein Albumin LDL Cholesterol Direct Vitamin B12 Urine WBC (Auto) Fluid Glucose Fluid Total Protein Vancomycin Trough Crossmatch 11/29/21 11/30/21 11/30/21 20:15 05:40 05:40 WBC 12.6 H RBC 3.41 L Hgb 9.1 L Hct 28.9 L MCV MCH 27 L MCHC RDW 20.4 H Plt Count Eos % (Auto) Eos # (Auto) Seg Neuts % (Manual) Lymphocytes % (Manual) Seg Neutrophils # Seg Neutrophils # Man Lymphocytes # (Manual) Monocytes # (Manual) PT INR D-Dimer ABG pH ABG pO2 ABG HCO3 ABG O2 Saturation ABG Base Excess ABG Hemoglobin Oxyhemoglobin Sodium Potassium Chloride Carbon Dioxide BUN 24 H Creatinine Glucose 131 H POC Glucose Lactic Acid Calcium 7.6 L Phosphorus Magnesium AST ALT Alkaline Phosphatase Lactate Dehydrogenase Troponin T 0.045 H C-Reactive Protein NT-Pro-B Natriuret Pep Total Protein Albumin LDL Cholesterol Direct 25 L Vitamin B12 Urine WBC (Auto) Fluid Glucose Fluid Total Protein Vancomycin Trough Crossmatch 11/30/21 11/30/21 12/01/21 11:29 16:51 05:00 WBC RBC 2.97 L Hgb 8.0 L Hct 25.0 L MCV MCH 27 L MCHC RDW 20.8 H Plt Count Eos % (Auto) Eos # (Auto) Seg Neuts % (Manual) Lymphocytes % (Manual) Seg Neutrophils # Seg Neutrophils # Man Lymphocytes # (Manual) Monocytes # (Manual) PT INR D-Dimer ABG pH ABG pO2 ABG HCO3 ABG O2 Saturation ABG Base Excess ABG Hemoglobin Oxyhemoglobin Sodium Potassium Chloride Carbon Dioxide BUN Creatinine Glucose POC Glucose 123 H 114 H Lactic Acid Calcium Phosphorus Magnesium AST ALT Alkaline Phosphatase Lactate Dehydrogenase Troponin T C-Reactive Protein NT-Pro-B Natriuret Pep Total Protein Albumin LDL Cholesterol Direct Vitamin B12 Urine WBC (Auto) Fluid Glucose Fluid Total Protein Vancomycin Trough Crossmatch 12/01/21 12/01/21 12/01/21 05:00 05:25 11:54 WBC RBC Hgb Hct MCV MCH MCHC RDW Plt Count Eos % (Auto) Eos # (Auto) Seg Neuts % (Manual) Lymphocytes % (Manual) Seg Neutrophils # Seg Neutrophils # Man Lymphocytes # (Manual) Monocytes # (Manual) PT INR D-Dimer ABG pH ABG pO2 ABG HCO3 ABG O2 Saturation ABG Base Excess ABG Hemoglobin Oxyhemoglobin Sodium 136 L Potassium Chloride Carbon Dioxide BUN 24 H Creatinine Glucose 117 H POC Glucose 108 H 107 H Lactic Acid Calcium 7.5 L Phosphorus Magnesium 1.60 L AST ALT Alkaline Phosphatase Lactate Dehydrogenase Troponin T C-Reactive Protein NT-Pro-B Natriuret Pep Total Protein Albumin LDL Cholesterol Direct Vitamin B12 Urine WBC (Auto) Fluid Glucose Fluid Total Protein Vancomycin Trough Crossmatch 12/01/21 12/02/21 12/02/21 17:40 00:07 04:20 WBC RBC 2.92 L Hgb 7.7 L Hct 24.3 L MCV MCH 26 L MCHC RDW 20.5 H Plt Count Eos % (Auto) Eos # (Auto) Seg Neuts % (Manual) Lymphocytes % (Manual) Seg Neutrophils # Seg Neutrophils # Man Lymphocytes # (Manual) Monocytes # (Manual) PT INR D-Dimer ABG pH ABG pO2 ABG HCO3 ABG O2 Saturation ABG Base Excess ABG Hemoglobin Oxyhemoglobin Sodium Potassium Chloride Carbon Dioxide BUN Creatinine Glucose POC Glucose 123 H 110 H Lactic Acid Calcium Phosphorus Magnesium AST ALT Alkaline Phosphatase Lactate Dehydrogenase Troponin T C-Reactive Protein NT-Pro-B Natriuret Pep Total Protein Albumin LDL Cholesterol Direct Vitamin B12 Urine WBC (Auto) Fluid Glucose Fluid Total Protein Vancomycin Trough Crossmatch 12/02/21 12/02/21 12/02/21 04:20 11:17 18:20 WBC RBC Hgb Hct MCV MCH MCHC RDW Plt Count Eos % (Auto) Eos # (Auto) Seg Neuts % (Manual) Lymphocytes % (Manual) Seg Neutrophils # Seg Neutrophils # Man Lymphocytes # (Manual) Monocytes # (Manual) PT INR D-Dimer ABG pH ABG pO2 ABG HCO3 ABG O2 Saturation ABG Base Excess ABG Hemoglobin Oxyhemoglobin Sodium 135 L Potassium Chloride Carbon Dioxide BUN 26 H Creatinine Glucose 121 H POC Glucose 117 H 113 H Lactic Acid Calcium 7.4 L Phosphorus Magnesium AST ALT Alkaline Phosphatase Lactate Dehydrogenase Troponin T C-Reactive Protein NT-Pro-B Natriuret Pep Total Protein Albumin LDL Cholesterol Direct Vitamin B12 Urine WBC (Auto) Fluid Glucose Fluid Total Protein Vancomycin Trough Crossmatch 12/03/21 12/03/21 12/03/21 00:12 04:00 04:00 WBC RBC 2.99 L Hgb 7.8 L Hct 24.6 L MCV MCH 26 L MCHC RDW 20.2 H Plt Count Eos % (Auto) Eos # (Auto) Seg Neuts % (Manual) Lymphocytes % (Manual) Seg Neutrophils # Seg Neutrophils # Man Lymphocytes # (Manual) Monocytes # (Manual) PT INR D-Dimer ABG pH ABG pO2 ABG HCO3 ABG O2 Saturation ABG Base Excess ABG Hemoglobin Oxyhemoglobin Sodium 136 L Potassium Chloride Carbon Dioxide BUN 27 H Creatinine Glucose 133 H POC Glucose 121 H Lactic Acid Calcium 7.5 L Phosphorus Magnesium AST ALT Alkaline Phosphatase Lactate Dehydrogenase Troponin T C-Reactive Protein NT-Pro-B Natriuret Pep Total Protein Albumin LDL Cholesterol Direct Vitamin B12 Urine WBC (Auto) Fluid Glucose Fluid Total Protein Vancomycin Trough Crossmatch 12/03/21 12/03/21 12/03/21 06:30 11:13 16:00 WBC RBC Hgb Hct MCV MCH MCHC RDW Plt Count Eos % (Auto) Eos # (Auto) Seg Neuts % (Manual) Lymphocytes % (Manual) Seg Neutrophils # Seg Neutrophils # Man Lymphocytes # (Manual) Monocytes # (Manual) PT INR D-Dimer ABG pH ABG pO2 ABG HCO3 ABG O2 Saturation ABG Base Excess ABG Hemoglobin Oxyhemoglobin Sodium Potassium Chloride Carbon Dioxide BUN Creatinine Glucose POC Glucose 129 H 125 H 125 H Lactic Acid Calcium Phosphorus Magnesium AST ALT Alkaline Phosphatase Lactate Dehydrogenase Troponin T C-Reactive Protein NT-Pro-B Natriuret Pep Total Protein Albumin LDL Cholesterol Direct Vitamin B12 Urine WBC (Auto) Fluid Glucose Fluid Total Protein Vancomycin Trough Crossmatch 12/03/21 12/04/21 12/04/21 23:32 04:00 05:36 WBC RBC Hgb Hct MCV MCH MCHC RDW Plt Count Eos % (Auto) Eos # (Auto) Seg Neuts % (Manual) Lymphocytes % (Manual) Seg Neutrophils # Seg Neutrophils # Man Lymphocytes # (Manual) Monocytes # (Manual) PT INR D-Dimer ABG pH ABG pO2 ABG HCO3 ABG O2 Saturation ABG Base Excess ABG Hemoglobin Oxyhemoglobin Sodium Potassium 3.5 L Chloride Carbon Dioxide BUN 26 H Creatinine 0.5 L Glucose 151 H POC Glucose 133 H 142 H Lactic Acid Calcium 8.3 L Phosphorus Magnesium AST ALT Alkaline Phosphatase Lactate Dehydrogenase Troponin T C-Reactive Protein NT-Pro-B Natriuret Pep Total Protein Albumin LDL Cholesterol Direct Vitamin B12 Urine WBC (Auto) Fluid Glucose Fluid Total Protein Vancomycin Trough Crossmatch 12/04/21 12/04/21 12/05/21 11:24 15:58 04:36 WBC RBC Hgb Hct MCV MCH MCHC RDW Plt Count Eos % (Auto) Eos # (Auto) Seg Neuts % (Manual) Lymphocytes % (Manual) Seg Neutrophils # Seg Neutrophils # Man Lymphocytes # (Manual) Monocytes # (Manual) PT INR D-Dimer ABG pH ABG pO2 ABG HCO3 ABG O2 Saturation ABG Base Excess ABG Hemoglobin Oxyhemoglobin Sodium Potassium Chloride Carbon Dioxide BUN 21 H Creatinine 0.5 L Glucose 119 H POC Glucose 130 H 111 H Lactic Acid Calcium 8.3 L Phosphorus Magnesium AST ALT Alkaline Phosphatase Lactate Dehydrogenase Troponin T C-Reactive Protein NT-Pro-B Natriuret Pep Total Protein Albumin LDL Cholesterol Direct Vitamin B12 Urine WBC (Auto) Fluid Glucose Fluid Total Protein Vancomycin Trough Crossmatch 12/05/21 12/05/21 12/05/21 05:15 10:40 11:12 WBC RBC 2.98 L Hgb 8.1 L Hct 24.6 L MCV MCH 27 L MCHC RDW 20.8 H Plt Count Eos % (Auto) Eos # (Auto) Seg Neuts % (Manual) Lymphocytes % (Manual) Seg Neutrophils # Seg Neutrophils # Man Lymphocytes # (Manual) Monocytes # (Manual) PT INR D-Dimer ABG pH ABG pO2 ABG HCO3 ABG O2 Saturation ABG Base Excess ABG Hemoglobin Oxyhemoglobin Sodium Potassium Chloride Carbon Dioxide BUN Creatinine Glucose POC Glucose 107 H 110 H Lactic Acid Calcium Phosphorus Magnesium AST ALT Alkaline Phosphatase Lactate Dehydrogenase Troponin T C-Reactive Protein NT-Pro-B Natriuret Pep Total Protein Albumin LDL Cholesterol Direct Vitamin B12 Urine WBC (Auto) Fluid Glucose Fluid Total Protein Vancomycin Trough Crossmatch 12/05/21 12/06/21 12/06/21 23:39 04:25 04:25 WBC RBC 2.95 L Hgb 7.9 L Hct 24.7 L MCV MCH 27 L MCHC RDW 20.9 H Plt Count Eos % (Auto) Eos # (Auto) Seg Neuts % (Manual) Lymphocytes % (Manual) Seg Neutrophils # Seg Neutrophils # Man Lymphocytes # (Manual) Monocytes # (Manual) PT INR D-Dimer ABG pH ABG pO2 ABG HCO3 ABG O2 Saturation ABG Base Excess ABG Hemoglobin Oxyhemoglobin Sodium Potassium Chloride Carbon Dioxide BUN 22 H Creatinine 0.5 L Glucose 136 H POC Glucose 118 H Lactic Acid Calcium 8.2 L Phosphorus Magnesium AST ALT Alkaline Phosphatase Lactate Dehydrogenase Troponin T C-Reactive Protein NT-Pro-B Natriuret Pep Total Protein Albumin LDL Cholesterol Direct Vitamin B12 Urine WBC (Auto) Fluid Glucose Fluid Total Protein Vancomycin Trough Crossmatch 12/06/21 12/06/21 12/07/21 05:28 11:27 04:00 WBC RBC Hgb 7.2 L Hct 21.8 L MCV MCH MCHC RDW Plt Count Eos % (Auto) Eos # (Auto) Seg Neuts % (Manual) Lymphocytes % (Manual) Seg Neutrophils # Seg Neutrophils # Man Lymphocytes # (Manual) Monocytes # (Manual) PT INR D-Dimer ABG pH ABG pO2 ABG HCO3 ABG O2 Saturation ABG Base Excess ABG Hemoglobin Oxyhemoglobin Sodium Potassium Chloride Carbon Dioxide BUN Creatinine Glucose POC Glucose 142 H 126 H Lactic Acid Calcium Phosphorus Magnesium AST ALT Alkaline Phosphatase Lactate Dehydrogenase Troponin T C-Reactive Protein NT-Pro-B Natriuret Pep Total Protein Albumin LDL Cholesterol Direct Vitamin B12 Urine WBC (Auto) Fluid Glucose Fluid Total Protein Vancomycin Trough Crossmatch 12/07/21 12/07/21 12/07/21 04:00 05:30 11:12 WBC RBC Hgb Hct MCV MCH MCHC RDW Plt Count Eos % (Auto) Eos # (Auto) Seg Neuts % (Manual) Lymphocytes % (Manual) Seg Neutrophils # Seg Neutrophils # Man Lymphocytes # (Manual) Monocytes # (Manual) PT INR D-Dimer ABG pH ABG pO2 ABG HCO3 ABG O2 Saturation ABG Base Excess ABG Hemoglobin Oxyhemoglobin Sodium Potassium Chloride Carbon Dioxide BUN 22 H Creatinine Glucose 119 H POC Glucose 121 H 124 H Lactic Acid Calcium 8.0 L Phosphorus Magnesium AST ALT Alkaline Phosphatase Lactate Dehydrogenase Troponin T C-Reactive Protein NT-Pro-B Natriuret Pep Total Protein Albumin LDL Cholesterol Direct Vitamin B12 Urine WBC (Auto) Fluid Glucose Fluid Total Protein Vancomycin Trough Crossmatch 12/08/21 12/08/21 12/08/21 04:00 04:00 05:39 WBC RBC 2.81 L Hgb 7.7 L Hct 23.5 L MCV MCH MCHC RDW 21.2 H Plt Count Eos % (Auto) Eos # (Auto) Seg Neuts % (Manual) Lymphocytes % (Manual) Seg Neutrophils # Seg Neutrophils # Man Lymphocytes # (Manual) Monocytes # (Manual) PT INR D-Dimer ABG pH ABG pO2 ABG HCO3 ABG O2 Saturation ABG Base Excess ABG Hemoglobin Oxyhemoglobin Sodium 135 L Potassium Chloride Carbon Dioxide BUN 23 H Creatinine Glucose 109 H POC Glucose 112 H Lactic Acid Calcium Phosphorus Magnesium AST ALT Alkaline Phosphatase Lactate Dehydrogenase Troponin T C-Reactive Protein NT-Pro-B Natriuret Pep Total Protein Albumin LDL Cholesterol Direct Vitamin B12 Urine WBC (Auto) Fluid Glucose Fluid Total Protein Vancomycin Trough Crossmatch 12/08/21 12/09/21 12/09/21 11:03 04:20 04:20 WBC RBC 2.67 L Hgb 7.6 L Hct 22.1 L MCV MCH MCHC RDW 20.8 H Plt Count Eos % (Auto) Eos # (Auto) Seg Neuts % (Manual) Lymphocytes % (Manual) Seg Neutrophils # Seg Neutrophils # Man Lymphocytes # (Manual) Monocytes # (Manual) PT INR D-Dimer ABG pH ABG pO2 ABG HCO3 ABG O2 Saturation ABG Base Excess ABG Hemoglobin Oxyhemoglobin Sodium 135 L Potassium Chloride 97.8 L Carbon Dioxide BUN 26 H Creatinine Glucose 119 H POC Glucose 108 H Lactic Acid Calcium 7.7 L Phosphorus Magnesium AST ALT Alkaline Phosphatase Lactate Dehydrogenase Troponin T C-Reactive Protein NT-Pro-B Natriuret Pep Total Protein Albumin LDL Cholesterol Direct Vitamin B12 Urine WBC (Auto) Fluid Glucose Fluid Total Protein Vancomycin Trough Crossmatch 12/09/21 12/10/21 12/10/21 11:26 04:33 11:12 WBC RBC Hgb Hct MCV MCH MCHC RDW Plt Count Eos % (Auto) Eos # (Auto) Seg Neuts % (Manual) Lymphocytes % (Manual) Seg Neutrophils # Seg Neutrophils # Man Lymphocytes # (Manual) Monocytes # (Manual) PT INR D-Dimer ABG pH ABG pO2 ABG HCO3 ABG O2 Saturation ABG Base Excess ABG Hemoglobin Oxyhemoglobin Sodium 136 L Potassium Chloride Carbon Dioxide BUN 27 H Creatinine Glucose 117 H POC Glucose 110 H 117 H Lactic Acid Calcium 8.2 L Phosphorus Magnesium AST ALT Alkaline Phosphatase Lactate Dehydrogenase Troponin T C-Reactive Protein NT-Pro-B Natriuret Pep Total Protein Albumin LDL Cholesterol Direct Vitamin B12 Urine WBC (Auto) Fluid Glucose Fluid Total Protein Vancomycin Trough Crossmatch 12/10/21 12/10/21 12/11/21 16:02 23:31 04:35 WBC RBC 2.57 L Hgb 7.0 L Hct 21.4 L MCV MCH 27 L MCHC RDW 21.1 H Plt Count Eos % (Auto) Eos # (Auto) Seg Neuts % (Manual) Lymphocytes % (Manual) Seg Neutrophils # Seg Neutrophils # Man Lymphocytes # (Manual) Monocytes # (Manual) PT INR D-Dimer ABG pH ABG pO2 ABG HCO3 ABG O2 Saturation ABG Base Excess ABG Hemoglobin Oxyhemoglobin Sodium Potassium Chloride Carbon Dioxide BUN Creatinine Glucose POC Glucose 137 H 111 H Lactic Acid Calcium Phosphorus Magnesium AST ALT Alkaline Phosphatase Lactate Dehydrogenase Troponin T C-Reactive Protein NT-Pro-B Natriuret Pep Total Protein Albumin LDL Cholesterol Direct Vitamin B12 Urine WBC (Auto) Fluid Glucose Fluid Total Protein Vancomycin Trough Crossmatch 12/11/21 12/11/21 12/11/21 04:35 12:46 16:07 WBC RBC Hgb Hct MCV MCH MCHC RDW Plt Count Eos % (Auto) Eos # (Auto) Seg Neuts % (Manual) Lymphocytes % (Manual) Seg Neutrophils # Seg Neutrophils # Man Lymphocytes # (Manual) Monocytes # (Manual) PT INR D-Dimer ABG pH ABG pO2 ABG HCO3 ABG O2 Saturation ABG Base Excess ABG Hemoglobin Oxyhemoglobin Sodium 136 L Potassium Chloride Carbon Dioxide BUN 27 H Creatinine Glucose 112 H POC Glucose 115 H 111 H Lactic Acid Calcium 7.6 L Phosphorus Magnesium AST ALT Alkaline Phosphatase Lactate Dehydrogenase Troponin T C-Reactive Protein NT-Pro-B Natriuret Pep Total Protein Albumin LDL Cholesterol Direct Vitamin B12 Urine WBC (Auto) Fluid Glucose Fluid Total Protein Vancomycin Trough Crossmatch 12/11/21 12/12/21 12/12/21 23:42 04:30 04:30 WBC RBC 2.60 L Hgb 7.1 L Hct 21.5 L MCV MCH 27 L MCHC RDW 20.3 H Plt Count Eos % (Auto) Eos # (Auto) Seg Neuts % (Manual) Lymphocytes % (Manual) Seg Neutrophils # Seg Neutrophils # Man Lymphocytes # (Manual) Monocytes # (Manual) PT INR D-Dimer ABG pH ABG pO2 ABG HCO3 ABG O2 Saturation ABG Base Excess ABG Hemoglobin Oxyhemoglobin Sodium 135 L Potassium Chloride 97.9 L Carbon Dioxide BUN 26 H Creatinine 0.5 L Glucose 138 H POC Glucose 115 H Lactic Acid Calcium 8.2 L Phosphorus Magnesium AST ALT Alkaline Phosphatase Lactate Dehydrogenase Troponin T C-Reactive Protein NT-Pro-B Natriuret Pep Total Protein Albumin LDL Cholesterol Direct Vitamin B12 Urine WBC (Auto) Fluid Glucose Fluid Total Protein Vancomycin Trough Crossmatch 12/12/21 12/12/21 12/12/21 04:30 05:10 11:51 WBC RBC Hgb Hct MCV MCH MCHC RDW Plt Count Eos % (Auto) Eos # (Auto) Seg Neuts % (Manual) Lymphocytes % (Manual) Seg Neutrophils # Seg Neutrophils # Man Lymphocytes # (Manual) Monocytes # (Manual) PT INR D-Dimer ABG pH ABG pO2 ABG HCO3 ABG O2 Saturation ABG Base Excess ABG Hemoglobin Oxyhemoglobin Sodium Potassium Chloride Carbon Dioxide BUN Creatinine Glucose POC Glucose 119 H 119 H Lactic Acid Calcium Phosphorus Magnesium AST ALT Alkaline Phosphatase Lactate Dehydrogenase Troponin T C-Reactive Protein NT-Pro-B Natriuret Pep Total Protein Albumin LDL Cholesterol Direct Vitamin B12 Urine WBC (Auto) Fluid Glucose Fluid Total Protein Vancomycin Trough Crossmatch See Detail 12/13/21 12/13/21 12/13/21 00:52 04:00 04:00 WBC RBC 2.73 L Hgb 7.4 L Hct 22.8 L MCV MCH 27 L MCHC RDW 20.5 H Plt Count Eos % (Auto) Eos # (Auto) Seg Neuts % (Manual) Lymphocytes % (Manual) Seg Neutrophils # Seg Neutrophils # Man Lymphocytes # (Manual) Monocytes # (Manual) PT INR D-Dimer ABG pH ABG pO2 ABG HCO3 ABG O2 Saturation ABG Base Excess ABG Hemoglobin Oxyhemoglobin Sodium 134 L Potassium Chloride 96.7 L Carbon Dioxide BUN 23 H Creatinine 0.5 L Glucose 131 H POC Glucose 131 H Lactic Acid Calcium 8.1 L Phosphorus Magnesium AST ALT Alkaline Phosphatase Lactate Dehydrogenase Troponin T C-Reactive Protein NT-Pro-B Natriuret Pep Total Protein Albumin LDL Cholesterol Direct Vitamin B12 Urine WBC (Auto) Fluid Glucose Fluid Total Protein Vancomycin Trough Crossmatch 12/13/21 12/13/21 12/13/21 05:23 12:11 17:18 WBC RBC Hgb Hct MCV MCH MCHC RDW Plt Count Eos % (Auto) Eos # (Auto) Seg Neuts % (Manual) Lymphocytes % (Manual) Seg Neutrophils # Seg Neutrophils # Man Lymphocytes # (Manual) Monocytes # (Manual) PT INR D-Dimer ABG pH ABG pO2 ABG HCO3 ABG O2 Saturation ABG Base Excess ABG Hemoglobin Oxyhemoglobin Sodium Potassium Chloride Carbon Dioxide BUN Creatinine Glucose POC Glucose 121 H 143 H 148 H Lactic Acid Calcium Phosphorus Magnesium AST ALT Alkaline Phosphatase Lactate Dehydrogenase Troponin T C-Reactive Protein NT-Pro-B Natriuret Pep Total Protein Albumin LDL Cholesterol Direct Vitamin B12 Urine WBC (Auto) Fluid Glucose Fluid Total Protein Vancomycin Trough Crossmatch 12/14/21 12/14/21 12/14/21 00:54 04:20 04:20 WBC RBC 2.39 L Hgb 6.5 L Hct 20.3 L MCV MCH 27 L MCHC RDW 20.3 H Plt Count Eos % (Auto) Eos # (Auto) Seg Neuts % (Manual) Lymphocytes % (Manual) Seg Neutrophils # Seg Neutrophils # Man Lymphocytes # (Manual) Monocytes # (Manual) PT INR D-Dimer ABG pH ABG pO2 ABG HCO3 ABG O2 Saturation ABG Base Excess ABG Hemoglobin Oxyhemoglobin Sodium 130 L Potassium Chloride 93.5 L Carbon Dioxide BUN 25 H Creatinine Glucose 123 H POC Glucose 123 H Lactic Acid Calcium 8.0 L Phosphorus Magnesium AST ALT Alkaline Phosphatase Lactate Dehydrogenase Troponin T C-Reactive Protein NT-Pro-B Natriuret Pep Total Protein Albumin LDL Cholesterol Direct Vitamin B12 Urine WBC (Auto) Fluid Glucose Fluid Total Protein Vancomycin Trough Crossmatch 12/14/21 12/14/21 12/14/21 05:06 08:17 10:30 WBC RBC Hgb Hct MCV MCH MCHC RDW Plt Count Eos % (Auto) Eos # (Auto) Seg Neuts % (Manual) Lymphocytes % (Manual) Seg Neutrophils # Seg Neutrophils # Man Lymphocytes # (Manual) Monocytes # (Manual) PT INR D-Dimer ABG pH ABG pO2 ABG HCO3 ABG O2 Saturation ABG Base Excess ABG Hemoglobin Oxyhemoglobin Sodium Potassium Chloride Carbon Dioxide BUN Creatinine Glucose POC Glucose 131 H 119 H Lactic Acid Calcium Phosphorus Magnesium AST ALT Alkaline Phosphatase Lactate Dehydrogenase Troponin T C-Reactive Protein NT-Pro-B Natriuret Pep Total Protein Albumin LDL Cholesterol Direct Vitamin B12 Urine WBC (Auto) Fluid Glucose Fluid Total Protein Vancomycin Trough Crossmatch See Detail 12/14/21 12/14/21 12/14/21 12:15 16:37 23:27 WBC RBC Hgb Hct MCV MCH MCHC RDW Plt Count Eos % (Auto) Eos # (Auto) Seg Neuts % (Manual) Lymphocytes % (Manual) Seg Neutrophils # Seg Neutrophils # Man Lymphocytes # (Manual) Monocytes # (Manual) PT INR D-Dimer ABG pH ABG pO2 ABG HCO3 ABG O2 Saturation ABG Base Excess ABG Hemoglobin Oxyhemoglobin Sodium Potassium Chloride Carbon Dioxide BUN Creatinine Glucose POC Glucose 147 H 141 H 130 H Lactic Acid Calcium Phosphorus Magnesium AST ALT Alkaline Phosphatase Lactate Dehydrogenase Troponin T C-Reactive Protein NT-Pro-B Natriuret Pep Total Protein Albumin LDL Cholesterol Direct Vitamin B12 Urine WBC (Auto) Fluid Glucose Fluid Total Protein Vancomycin Trough Crossmatch 12/15/21 12/15/21 12/15/21 05:00 07:00 07:00 WBC 12.3 H RBC 3.27 L Hgb 8.8 L Hct 27.5 L D MCV MCH 27 L MCHC RDW 19.0 H Plt Count Eos % (Auto) Eos # (Auto) Seg Neuts % (Manual) Lymphocytes % (Manual) Seg Neutrophils # Seg Neutrophils # Man Lymphocytes # (Manual) Monocytes # (Manual) PT INR D-Dimer ABG pH ABG pO2 ABG HCO3 ABG O2 Saturation ABG Base Excess ABG Hemoglobin Oxyhemoglobin Sodium 134 L Potassium Chloride 95.7 L Carbon Dioxide BUN 28 H Creatinine Glucose 129 H POC Glucose 129 H Lactic Acid Calcium 8.2 L Phosphorus Magnesium AST ALT Alkaline Phosphatase Lactate Dehydrogenase Troponin T C-Reactive Protein NT-Pro-B Natriuret Pep Total Protein Albumin LDL Cholesterol Direct Vitamin B12 Urine WBC (Auto) Fluid Glucose Fluid Total Protein Vancomycin Trough Crossmatch 12/15/21 12/15/21 12/15/21 11:18 16:00 23:39 WBC RBC Hgb Hct MCV MCH MCHC RDW Plt Count Eos % (Auto) Eos # (Auto) Seg Neuts % (Manual) Lymphocytes % (Manual) Seg Neutrophils # Seg Neutrophils # Man Lymphocytes # (Manual) Monocytes # (Manual) PT INR D-Dimer ABG pH ABG pO2 ABG HCO3 ABG O2 Saturation ABG Base Excess ABG Hemoglobin Oxyhemoglobin Sodium Potassium Chloride Carbon Dioxide BUN Creatinine Glucose POC Glucose 139 H 137 H 146 H Lactic Acid Calcium Phosphorus Magnesium AST ALT Alkaline Phosphatase Lactate Dehydrogenase Troponin T C-Reactive Protein NT-Pro-B Natriuret Pep Total Protein Albumin LDL Cholesterol Direct Vitamin B12 Urine WBC (Auto) Fluid Glucose Fluid Total Protein Vancomycin Trough Crossmatch 12/16/21 12/16/21 12/16/21 05:24 10:21 10:21 WBC 15.3 H RBC 3.24 L Hgb 8.9 L Hct 27.7 L MCV MCH MCHC RDW 19.0 H Plt Count Eos % (Auto) Eos # (Auto) Seg Neuts % (Manual) Lymphocytes % (Manual) Seg Neutrophils # Seg Neutrophils # Man Lymphocytes # (Manual) Monocytes # (Manual) PT INR D-Dimer ABG pH ABG pO2 ABG HCO3 ABG O2 Saturation ABG Base Excess ABG Hemoglobin Oxyhemoglobin Sodium 131 L Potassium 3.5 L Chloride 92.7 L Carbon Dioxide BUN 36 H Creatinine Glucose 160 H POC Glucose 121 H Lactic Acid Calcium Phosphorus Magnesium 1.60 L AST ALT Alkaline Phosphatase Lactate Dehydrogenase Troponin T C-Reactive Protein NT-Pro-B Natriuret Pep Total Protein Albumin LDL Cholesterol Direct Vitamin B12 Urine WBC (Auto) Fluid Glucose Fluid Total Protein Vancomycin Trough Crossmatch 12/16/21 12/16/21 12/16/21 11:21 18:28 20:52 WBC RBC Hgb Hct MCV MCH MCHC RDW Plt Count Eos % (Auto) Eos # (Auto) Seg Neuts % (Manual) Lymphocytes % (Manual) Seg Neutrophils # Seg Neutrophils # Man Lymphocytes # (Manual) Monocytes # (Manual) PT INR D-Dimer ABG pH 7.479 H ABG pO2 79.3 L ABG HCO3 27.3 H ABG O2 Saturation ABG Base Excess 3.6 H ABG Hemoglobin 9.1 L Oxyhemoglobin 94.9 L Sodium Potassium Chloride Carbon Dioxide BUN Creatinine Glucose POC Glucose 153 H 132 H Lactic Acid Calcium Phosphorus Magnesium AST ALT Alkaline Phosphatase Lactate Dehydrogenase Troponin T C-Reactive Protein NT-Pro-B Natriuret Pep Total Protein Albumin LDL Cholesterol Direct Vitamin B12 Urine WBC (Auto) Fluid Glucose Fluid Total Protein Vancomycin Trough Crossmatch 12/16/21 12/17/21 12/17/21 23:30 04:25 04:25 WBC 12.3 H RBC 2.16 L Hgb 6.0 L Hct 18.1 L* D MCV MCH MCHC RDW 19.4 H Plt Count Eos % (Auto) Eos # (Auto) Seg Neuts % (Manual) Lymphocytes % (Manual) Seg Neutrophils # Seg Neutrophils # Man Lymphocytes # (Manual) Monocytes # (Manual) PT INR D-Dimer ABG pH ABG pO2 ABG HCO3 ABG O2 Saturation ABG Base Excess ABG Hemoglobin Oxyhemoglobin Sodium 132 L Potassium 3.2 L Chloride 112.0 H Carbon Dioxide BUN 32 H Creatinine Glucose 122 H POC Glucose 137 H Lactic Acid Calcium 6.8 L D Phosphorus Magnesium AST ALT Alkaline Phosphatase Lactate Dehydrogenase Troponin T C-Reactive Protein NT-Pro-B Natriuret Pep Total Protein Albumin LDL Cholesterol Direct Vitamin B12 Urine WBC (Auto) Fluid Glucose Fluid Total Protein Vancomycin Trough Crossmatch 12/17/21 12/17/21 12/17/21 05:30 11:49 14:45 WBC RBC Hgb 9.7 L D Hct MCV MCH MCHC RDW Plt Count Eos % (Auto) Eos # (Auto) Seg Neuts % (Manual) Lymphocytes % (Manual) Seg Neutrophils # Seg Neutrophils # Man Lymphocytes # (Manual) Monocytes # (Manual) PT INR D-Dimer ABG pH ABG pO2 ABG HCO3 ABG O2 Saturation ABG Base Excess ABG Hemoglobin Oxyhemoglobin Sodium Potassium Chloride Carbon Dioxide BUN Creatinine Glucose POC Glucose 137 H 143 H Lactic Acid Calcium Phosphorus Magnesium AST ALT Alkaline Phosphatase Lactate Dehydrogenase Troponin T C-Reactive Protein NT-Pro-B Natriuret Pep Total Protein Albumin LDL Cholesterol Direct Vitamin B12 Urine WBC (Auto) Fluid Glucose Fluid Total Protein Vancomycin Trough Crossmatch 12/17/21 12/18/21 12/18/21 17:01 05:04 05:04 WBC 13.8 H RBC 3.44 L Hgb 9.9 L Hct 28.8 L MCV MCH MCHC RDW 18.1 H Plt Count Eos % (Auto) Eos # (Auto) Seg Neuts % (Manual) Lymphocytes % (Manual) Seg Neutrophils # Seg Neutrophils # Man Lymphocytes # (Manual) Monocytes # (Manual) PT INR D-Dimer ABG pH ABG pO2 ABG HCO3 ABG O2 Saturation ABG Base Excess ABG Hemoglobin Oxyhemoglobin Sodium 132 L Potassium Chloride 97.4 L Carbon Dioxide BUN 38 H Creatinine Glucose 134 H POC Glucose 132 H Lactic Acid Calcium Phosphorus Magnesium AST ALT Alkaline Phosphatase Lactate Dehydrogenase Troponin T C-Reactive Protein NT-Pro-B Natriuret Pep Total Protein Albumin LDL Cholesterol Direct Vitamin B12 Urine WBC (Auto) Fluid Glucose Fluid Total Protein Vancomycin Trough Crossmatch 12/18/21 12/18/21 12/18/21 05:28 10:57 16:27 WBC RBC Hgb Hct MCV MCH MCHC RDW Plt Count Eos % (Auto) Eos # (Auto) Seg Neuts % (Manual) Lymphocytes % (Manual) Seg Neutrophils # Seg Neutrophils # Man Lymphocytes # (Manual) Monocytes # (Manual) PT INR D-Dimer ABG pH ABG pO2 ABG HCO3 ABG O2 Saturation ABG Base Excess ABG Hemoglobin Oxyhemoglobin Sodium Potassium Chloride Carbon Dioxide BUN Creatinine Glucose POC Glucose 118 H 132 H 130 H Lactic Acid Calcium Phosphorus Magnesium AST ALT Alkaline Phosphatase Lactate Dehydrogenase Troponin T C-Reactive Protein NT-Pro-B Natriuret Pep Total Protein Albumin LDL Cholesterol Direct Vitamin B12 Urine WBC (Auto) Fluid Glucose Fluid Total Protein Vancomycin Trough Crossmatch 12/19/21 12/19/21 12/19/21 00:02 04:41 04:41 WBC 16.0 H RBC 3.45 L Hgb 9.7 L Hct 29.1 L MCV MCH MCHC RDW 17.8 H Plt Count Eos % (Auto) Eos # (Auto) Seg Neuts % (Manual) Lymphocytes % (Manual) Seg Neutrophils # Seg Neutrophils # Man Lymphocytes # (Manual) Monocytes # (Manual) PT INR D-Dimer ABG pH ABG pO2 ABG HCO3 ABG O2 Saturation ABG Base Excess ABG Hemoglobin Oxyhemoglobin Sodium 133 L Potassium Chloride 97.9 L Carbon Dioxide BUN 36 H Creatinine 0.5 L Glucose 126 H POC Glucose 127 H Lactic Acid Calcium 8.3 L Phosphorus Magnesium AST ALT Alkaline Phosphatase Lactate Dehydrogenase Troponin T C-Reactive Protein NT-Pro-B Natriuret Pep Total Protein Albumin LDL Cholesterol Direct Vitamin B12 Urine WBC (Auto) Fluid Glucose Fluid Total Protein Vancomycin Trough Crossmatch 12/19/21 12/19/21 12/19/21 05:26 12:20 16:43 WBC RBC Hgb Hct MCV MCH MCHC RDW Plt Count Eos % (Auto) Eos # (Auto) Seg Neuts % (Manual) Lymphocytes % (Manual) Seg Neutrophils # Seg Neutrophils # Man Lymphocytes # (Manual) Monocytes # (Manual) PT INR D-Dimer ABG pH ABG pO2 ABG HCO3 ABG O2 Saturation ABG Base Excess ABG Hemoglobin Oxyhemoglobin Sodium Potassium Chloride Carbon Dioxide BUN Creatinine Glucose POC Glucose 119 H 145 H 126 H Lactic Acid Calcium Phosphorus Magnesium AST ALT Alkaline Phosphatase Lactate Dehydrogenase Troponin T C-Reactive Protein NT-Pro-B Natriuret Pep Total Protein Albumin LDL Cholesterol Direct Vitamin B12 Urine WBC (Auto) Fluid Glucose Fluid Total Protein Vancomycin Trough Crossmatch 12/19/21 12/20/21 12/20/21 23:30 04:54 04:54 WBC 12.3 H RBC 3.54 L Hgb 10.0 L Hct 29.5 L MCV MCH MCHC RDW 17.8 H Plt Count Eos % (Auto) Eos # (Auto) Seg Neuts % (Manual) 88.0 H Lymphocytes % (Manual) 6.0 L Seg Neutrophils # Seg Neutrophils # Man 10.8 H Lymphocytes # (Manual) 0.7 L Monocytes # (Manual) PT INR D-Dimer ABG pH ABG pO2 ABG HCO3 ABG O2 Saturation ABG Base Excess ABG Hemoglobin Oxyhemoglobin Sodium 131 L Potassium Chloride 96.2 L Carbon Dioxide BUN 36 H Creatinine 0.5 L Glucose 130 H POC Glucose 117 H Lactic Acid Calcium Phosphorus Magnesium AST ALT Alkaline Phosphatase Lactate Dehydrogenase Troponin T C-Reactive Protein NT-Pro-B Natriuret Pep Total Protein Albumin LDL Cholesterol Direct Vitamin B12 Urine WBC (Auto) Fluid Glucose Fluid Total Protein Vancomycin Trough Crossmatch 12/20/21 12/20/21 12/20/21 05:20 11:51 17:30 WBC RBC Hgb Hct MCV MCH MCHC RDW Plt Count Eos % (Auto) Eos # (Auto) Seg Neuts % (Manual) Lymphocytes % (Manual) Seg Neutrophils # Seg Neutrophils # Man Lymphocytes # (Manual) Monocytes # (Manual) PT INR D-Dimer ABG pH ABG pO2 ABG HCO3 ABG O2 Saturation ABG Base Excess ABG Hemoglobin Oxyhemoglobin Sodium Potassium Chloride Carbon Dioxide BUN Creatinine Glucose POC Glucose 126 H 119 H 127 H Lactic Acid Calcium Phosphorus Magnesium AST ALT Alkaline Phosphatase Lactate Dehydrogenase Troponin T C-Reactive Protein NT-Pro-B Natriuret Pep Total Protein Albumin LDL Cholesterol Direct Vitamin B12 Urine WBC (Auto) Fluid Glucose Fluid Total Protein Vancomycin Trough Crossmatch 12/21/21 12/21/21 12/21/21 00:45 04:21 04:21 WBC RBC 3.47 L Hgb 9.4 L Hct 29.2 L MCV MCH 27 L MCHC RDW 18.1 H Plt Count Eos % (Auto) Eos # (Auto) Seg Neuts % (Manual) Lymphocytes % (Manual) Seg Neutrophils # Seg Neutrophils # Man Lymphocytes # (Manual) Monocytes # (Manual) PT INR D-Dimer ABG pH ABG pO2 ABG HCO3 ABG O2 Saturation ABG Base Excess ABG Hemoglobin Oxyhemoglobin Sodium 134 L Potassium Chloride Carbon Dioxide BUN 35 H Creatinine 0.5 L Glucose 122 H POC Glucose 125 H Lactic Acid Calcium 8.2 L Phosphorus Magnesium AST ALT Alkaline Phosphatase Lactate Dehydrogenase Troponin T C-Reactive Protein NT-Pro-B Natriuret Pep Total Protein Albumin LDL Cholesterol Direct Vitamin B12 Urine WBC (Auto) Fluid Glucose Fluid Total Protein Vancomycin Trough Crossmatch 12/21/21 12/21/21 12/21/21 05:38 11:29 16:16 WBC RBC Hgb Hct MCV MCH MCHC RDW Plt Count Eos % (Auto) Eos # (Auto) Seg Neuts % (Manual) Lymphocytes % (Manual) Seg Neutrophils # Seg Neutrophils # Man Lymphocytes # (Manual) Monocytes # (Manual) PT INR D-Dimer ABG pH ABG pO2 ABG HCO3 ABG O2 Saturation ABG Base Excess ABG Hemoglobin Oxyhemoglobin Sodium Potassium Chloride Carbon Dioxide BUN Creatinine Glucose POC Glucose 127 H 121 H 113 H Lactic Acid Calcium Phosphorus Magnesium AST ALT Alkaline Phosphatase Lactate Dehydrogenase Troponin T C-Reactive Protein NT-Pro-B Natriuret Pep Total Protein Albumin LDL Cholesterol Direct Vitamin B12 Urine WBC (Auto) Fluid Glucose Fluid Total Protein Vancomycin Trough Crossmatch 12/22/21 12/22/21 12/23/21 04:58 04:58 06:40 WBC 11.5 H RBC 3.43 L Hgb 9.8 L Hct 28.7 L MCV MCH MCHC RDW 18.5 H 17.9 H Plt Count Eos % (Auto) Eos # (Auto) Seg Neuts % (Manual) Lymphocytes % (Manual) Seg Neutrophils # Seg Neutrophils # Man Lymphocytes # (Manual) Monocytes # (Manual) PT INR D-Dimer ABG pH ABG pO2 ABG HCO3 ABG O2 Saturation ABG Base Excess ABG Hemoglobin Oxyhemoglobin Sodium 130 L Potassium Chloride 97.8 L Carbon Dioxide BUN 31 H Creatinine 0.5 L Glucose 122 H POC Glucose Lactic Acid Calcium 7.9 L Phosphorus Magnesium AST ALT Alkaline Phosphatase Lactate Dehydrogenase Troponin T C-Reactive Protein NT-Pro-B Natriuret Pep Total Protein Albumin LDL Cholesterol Direct Vitamin B12 Urine WBC (Auto) Fluid Glucose Fluid Total Protein Vancomycin Trough Crossmatch 12/23/21 12/23/21 12/24/21 06:40 23:25 04:24 WBC 11.7 H RBC Hgb 9.8 L Hct MCV MCH 26 L MCHC RDW 18.1 H Plt Count Eos % (Auto) Eos # (Auto) Seg Neuts % (Manual) Lymphocytes % (Manual) Seg Neutrophils # Seg Neutrophils # Man Lymphocytes # (Manual) Monocytes # (Manual) PT INR D-Dimer ABG pH ABG pO2 ABG HCO3 ABG O2 Saturation ABG Base Excess ABG Hemoglobin Oxyhemoglobin Sodium 136 L Potassium Chloride Carbon Dioxide BUN 27 H Creatinine 0.4 L Glucose 107 H POC Glucose 110 H Lactic Acid Calcium 8.1 L Phosphorus Magnesium AST ALT Alkaline Phosphatase Lactate Dehydrogenase Troponin T C-Reactive Protein NT-Pro-B Natriuret Pep Total Protein Albumin LDL Cholesterol Direct Vitamin B12 Urine WBC (Auto) Fluid Glucose Fluid Total Protein Vancomycin Trough Crossmatch 12/24/21 12/24/21 12/24/21 04:24 11:08 15:45 WBC RBC Hgb Hct MCV MCH MCHC RDW Plt Count Eos % (Auto) Eos # (Auto) Seg Neuts % (Manual) Lymphocytes % (Manual) Seg Neutrophils # Seg Neutrophils # Man Lymphocytes # (Manual) Monocytes # (Manual) PT INR D-Dimer ABG pH ABG pO2 ABG HCO3 ABG O2 Saturation ABG Base Excess ABG Hemoglobin Oxyhemoglobin Sodium 132 L Potassium Chloride Carbon Dioxide BUN 27 H Creatinine 0.3 L Glucose 108 H POC Glucose 116 H 107 H Lactic Acid Calcium Phosphorus Magnesium AST ALT Alkaline Phosphatase Lactate Dehydrogenase Troponin T C-Reactive Protein NT-Pro-B Natriuret Pep Total Protein Albumin LDL Cholesterol Direct Vitamin B12 Urine WBC (Auto) Fluid Glucose Fluid Total Protein Vancomycin Trough Crossmatch 12/24/21 12/25/21 12/25/21 23:43 05:29 11:48 WBC RBC Hgb Hct MCV MCH MCHC RDW Plt Count Eos % (Auto) Eos # (Auto) Seg Neuts % (Manual) Lymphocytes % (Manual) Seg Neutrophils # Seg Neutrophils # Man Lymphocytes # (Manual) Monocytes # (Manual) PT INR D-Dimer ABG pH ABG pO2 ABG HCO3 ABG O2 Saturation ABG Base Excess ABG Hemoglobin Oxyhemoglobin Sodium Potassium Chloride Carbon Dioxide BUN Creatinine Glucose POC Glucose 123 H 107 H 119 H Lactic Acid Calcium Phosphorus Magnesium AST ALT Alkaline Phosphatase Lactate Dehydrogenase Troponin T C-Reactive Protein NT-Pro-B Natriuret Pep Total Protein Albumin LDL Cholesterol Direct Vitamin B12 Urine WBC (Auto) Fluid Glucose Fluid Total Protein Vancomycin Trough Crossmatch 12/26/21 12/26/21 12/26/21 00:06 05:56 07:51 WBC 11.4 H RBC 3.40 L Hgb 9.3 L Hct 28.3 L MCV MCH 27 L MCHC RDW 18.2 H Plt Count Eos % (Auto) Eos # (Auto) Seg Neuts % (Manual) Lymphocytes % (Manual) Seg Neutrophils # Seg Neutrophils # Man Lymphocytes # (Manual) Monocytes # (Manual) PT INR D-Dimer ABG pH ABG pO2 ABG HCO3 ABG O2 Saturation ABG Base Excess ABG Hemoglobin Oxyhemoglobin Sodium Potassium Chloride Carbon Dioxide BUN Creatinine Glucose POC Glucose 133 H 107 H Lactic Acid Calcium Phosphorus Magnesium AST ALT Alkaline Phosphatase Lactate Dehydrogenase Troponin T C-Reactive Protein NT-Pro-B Natriuret Pep Total Protein Albumin LDL Cholesterol Direct Vitamin B12 Urine WBC (Auto) Fluid Glucose Fluid Total Protein Vancomycin Trough Crossmatch 12/26/21 12/26/21 12/26/21 07:51 11:43 17:06 WBC RBC Hgb Hct MCV MCH MCHC RDW Plt Count Eos % (Auto) Eos # (Auto) Seg Neuts % (Manual) Lymphocytes % (Manual) Seg Neutrophils # Seg Neutrophils # Man Lymphocytes # (Manual) Monocytes # (Manual) PT INR D-Dimer ABG pH ABG pO2 ABG HCO3 ABG O2 Saturation ABG Base Excess ABG Hemoglobin Oxyhemoglobin Sodium 136 L Potassium Chloride Carbon Dioxide BUN 25 H Creatinine 0.3 L Glucose 131 H POC Glucose 119 H 128 H Lactic Acid Calcium Phosphorus Magnesium AST ALT Alkaline Phosphatase Lactate Dehydrogenase Troponin T C-Reactive Protein NT-Pro-B Natriuret Pep Total Protein Albumin LDL Cholesterol Direct Vitamin B12 Urine WBC (Auto) Fluid Glucose Fluid Total Protein Vancomycin Trough Crossmatch 12/28/21 12/28/21 12/29/21 09:05 09:05 04:40 WBC RBC 3.19 L Hgb 8.9 L Hct 26.4 L MCV MCH 27 L MCHC RDW 18.4 H 17.9 H Plt Count Eos % (Auto) Eos # (Auto) Seg Neuts % (Manual) Lymphocytes % (Manual) Seg Neutrophils # Seg Neutrophils # Man Lymphocytes # (Manual) Monocytes # (Manual) PT INR D-Dimer ABG pH ABG pO2 ABG HCO3 ABG O2 Saturation ABG Base Excess ABG Hemoglobin Oxyhemoglobin Sodium 135 L Potassium Chloride 97.8 L Carbon Dioxide BUN 18 H Creatinine 0.3 L Glucose POC Glucose Lactic Acid Calcium Phosphorus Magnesium AST ALT Alkaline Phosphatase Lactate Dehydrogenase Troponin T C-Reactive Protein NT-Pro-B Natriuret Pep Total Protein Albumin LDL Cholesterol Direct Vitamin B12 Urine WBC (Auto) Fluid Glucose Fluid Total Protein Vancomycin Trough Crossmatch 12/29/21 12/29/21 12/30/21 04:40 12:47 04:05 WBC RBC 3.29 L Hgb 8.7 L Hct 27.6 L MCV MCH 27 L MCHC RDW 17.6 H Plt Count Eos % (Auto) Eos # (Auto) Seg Neuts % (Manual) Lymphocytes % (Manual) Seg Neutrophils # Seg Neutrophils # Man Lymphocytes # (Manual) Monocytes # (Manual) PT INR D-Dimer ABG pH ABG pO2 ABG HCO3 ABG O2 Saturation ABG Base Excess ABG Hemoglobin Oxyhemoglobin Sodium 136 L Potassium Chloride Carbon Dioxide BUN Creatinine 0.3 L Glucose POC Glucose 67 L Lactic Acid Calcium 8.3 L Phosphorus Magnesium AST ALT Alkaline Phosphatase Lactate Dehydrogenase Troponin T C-Reactive Protein NT-Pro-B Natriuret Pep Total Protein Albumin LDL Cholesterol Direct Vitamin B12 Urine WBC (Auto) Fluid Glucose Fluid Total Protein Vancomycin Trough Crossmatch 12/30/21 12/31/21 12/31/21 04:05 00:07 04:00 WBC RBC 3.05 L Hgb 8.5 L Hct 25.5 L MCV MCH MCHC RDW 18.2 H Plt Count Eos % (Auto) Eos # (Auto) Seg Neuts % (Manual) Lymphocytes % (Manual) Seg Neutrophils # Seg Neutrophils # Man Lymphocytes # (Manual) Monocytes # (Manual) PT INR D-Dimer ABG pH ABG pO2 ABG HCO3 ABG O2 Saturation ABG Base Excess ABG Hemoglobin Oxyhemoglobin Sodium 136 L Potassium 3.5 L Chloride Carbon Dioxide BUN Creatinine 0.4 L Glucose POC Glucose 139 H Lactic Acid Calcium Phosphorus Magnesium 1.50 L AST ALT Alkaline Phosphatase Lactate Dehydrogenase Troponin T C-Reactive Protein NT-Pro-B Natriuret Pep Total Protein Albumin LDL Cholesterol Direct Vitamin B12 Urine WBC (Auto) Fluid Glucose Fluid Total Protein Vancomycin Trough Crossmatch 12/31/21 12/31/21 12/31/21 04:00 04:52 11:23 WBC RBC Hgb Hct MCV MCH MCHC RDW Plt Count Eos % (Auto) Eos # (Auto) Seg Neuts % (Manual) Lymphocytes % (Manual) Seg Neutrophils # Seg Neutrophils # Man Lymphocytes # (Manual) Monocytes # (Manual) PT INR D-Dimer ABG pH ABG pO2 ABG HCO3 ABG O2 Saturation ABG Base Excess ABG Hemoglobin Oxyhemoglobin Sodium Potassium Chloride Carbon Dioxide BUN 19 H Creatinine 0.4 L Glucose 116 H POC Glucose 121 H 116 H Lactic Acid Calcium Phosphorus Magnesium AST ALT Alkaline Phosphatase Lactate Dehydrogenase Troponin T C-Reactive Protein NT-Pro-B Natriuret Pep Total Protein Albumin LDL Cholesterol Direct Vitamin B12 Urine WBC (Auto) Fluid Glucose Fluid Total Protein Vancomycin Trough Crossmatch 12/31/21 01/01/22 01/01/22 17:42 04:31 04:31 WBC RBC 2.83 L Hgb 7.7 L Hct 23.2 L MCV MCH 27 L MCHC RDW 18.3 H Plt Count Eos % (Auto) Eos # (Auto) Seg Neuts % (Manual) Lymphocytes % (Manual) Seg Neutrophils # Seg Neutrophils # Man Lymphocytes # (Manual) Monocytes # (Manual) PT INR D-Dimer ABG pH ABG pO2 ABG HCO3 ABG O2 Saturation ABG Base Excess ABG Hemoglobin Oxyhemoglobin Sodium 135 L Potassium Chloride 97.7 L Carbon Dioxide BUN 21 H Creatinine 0.5 L Glucose 127 H POC Glucose 107 H Lactic Acid Calcium 8.0 L Phosphorus Magnesium AST ALT Alkaline Phosphatase Lactate Dehydrogenase Troponin T C-Reactive Protein NT-Pro-B Natriuret Pep Total Protein Albumin LDL Cholesterol Direct Vitamin B12 Urine WBC (Auto) Fluid Glucose Fluid Total Protein Vancomycin Trough Crossmatch 01/01/22 01/01/22 01/01/22 05:24 11:25 18:11 WBC RBC Hgb Hct MCV MCH MCHC RDW Plt Count Eos % (Auto) Eos # (Auto) Seg Neuts % (Manual) Lymphocytes % (Manual) Seg Neutrophils # Seg Neutrophils # Man Lymphocytes # (Manual) Monocytes # (Manual) PT INR D-Dimer ABG pH ABG pO2 ABG HCO3 ABG O2 Saturation ABG Base Excess ABG Hemoglobin Oxyhemoglobin Sodium Potassium Chloride Carbon Dioxide BUN Creatinine Glucose POC Glucose 124 H 140 H 144 H Lactic Acid Calcium Phosphorus Magnesium AST ALT Alkaline Phosphatase Lactate Dehydrogenase Troponin T C-Reactive Protein NT-Pro-B Natriuret Pep Total Protein Albumin LDL Cholesterol Direct Vitamin B12 Urine WBC (Auto) Fluid Glucose Fluid Total Protein Vancomycin Trough Crossmatch 01/01/22 01/02/22 01/02/22 23:26 04:01 04:01 WBC RBC 2.57 L Hgb 7.1 L Hct 21.5 L MCV MCH MCHC RDW 18.1 H Plt Count Eos % (Auto) Eos # (Auto) Seg Neuts % (Manual) Lymphocytes % (Manual) Seg Neutrophils # Seg Neutrophils # Man Lymphocytes # (Manual) Monocytes # (Manual) PT INR D-Dimer ABG pH ABG pO2 ABG HCO3 ABG O2 Saturation ABG Base Excess ABG Hemoglobin Oxyhemoglobin Sodium 131 L Potassium 3.5 L Chloride 94.8 L Carbon Dioxide BUN 27 H Creatinine Glucose 121 H POC Glucose 121 H Lactic Acid Calcium Phosphorus Magnesium AST ALT Alkaline Phosphatase Lactate Dehydrogenase Troponin T C-Reactive Protein NT-Pro-B Natriuret Pep Total Protein Albumin LDL Cholesterol Direct Vitamin B12 Urine WBC (Auto) Fluid Glucose Fluid Total Protein Vancomycin Trough Crossmatch 01/02/22 01/02/22 01/02/22 05:30 11:10 16:08 WBC RBC Hgb Hct MCV MCH MCHC RDW Plt Count Eos % (Auto) Eos # (Auto) Seg Neuts % (Manual) Lymphocytes % (Manual) Seg Neutrophils # Seg Neutrophils # Man Lymphocytes # (Manual) Monocytes # (Manual) PT INR D-Dimer ABG pH ABG pO2 ABG HCO3 ABG O2 Saturation ABG Base Excess ABG Hemoglobin Oxyhemoglobin Sodium Potassium Chloride Carbon Dioxide BUN Creatinine Glucose POC Glucose 124 H 117 H 130 H Lactic Acid Calcium Phosphorus Magnesium AST ALT Alkaline Phosphatase Lactate Dehydrogenase Troponin T C-Reactive Protein NT-Pro-B Natriuret Pep Total Protein Albumin LDL Cholesterol Direct Vitamin B12 Urine WBC (Auto) Fluid Glucose Fluid Total Protein Vancomycin Trough Crossmatch 01/02/22 01/02/22 01/03/22 17:30 23:26 04:53 WBC RBC 2.82 L Hgb 7.7 L Hct 23.4 L MCV MCH 27 L MCHC RDW 18.0 H Plt Count Eos % (Auto) Eos # (Auto) Seg Neuts % (Manual) Lymphocytes % (Manual) Seg Neutrophils # Seg Neutrophils # Man Lymphocytes # (Manual) Monocytes # (Manual) PT INR D-Dimer ABG pH ABG pO2 ABG HCO3 ABG O2 Saturation ABG Base Excess ABG Hemoglobin Oxyhemoglobin Sodium Potassium Chloride Carbon Dioxide BUN Creatinine Glucose POC Glucose 114 H Lactic Acid Calcium Phosphorus Magnesium AST ALT Alkaline Phosphatase Lactate Dehydrogenase Troponin T C-Reactive Protein NT-Pro-B Natriuret Pep Total Protein Albumin LDL Cholesterol Direct Vitamin B12 Urine WBC (Auto) Fluid Glucose Fluid Total Protein Vancomycin Trough 22.8 H Crossmatch 01/03/22 01/03/22 01/03/22 04:53 06:23 17:35 WBC RBC Hgb Hct MCV MCH MCHC RDW Plt Count Eos % (Auto) Eos # (Auto) Seg Neuts % (Manual) Lymphocytes % (Manual) Seg Neutrophils # Seg Neutrophils # Man Lymphocytes # (Manual) Monocytes # (Manual) PT INR D-Dimer ABG pH ABG pO2 ABG HCO3 ABG O2 Saturation ABG Base Excess ABG Hemoglobin Oxyhemoglobin Sodium 133 L Potassium Chloride 96.2 L Carbon Dioxide BUN 30 H Creatinine Glucose 107 H POC Glucose 122 H 107 H Lactic Acid Calcium Phosphorus Magnesium AST ALT Alkaline Phosphatase Lactate Dehydrogenase Troponin T C-Reactive Protein NT-Pro-B Natriuret Pep Total Protein Albumin LDL Cholesterol Direct Vitamin B12 Urine WBC (Auto) Fluid Glucose Fluid Total Protein Vancomycin Trough Crossmatch 01/04/22 01/04/22 01/04/22 04:00 12:32 16:45 WBC RBC Hgb Hct MCV MCH MCHC RDW Plt Count Eos % (Auto) Eos # (Auto) Seg Neuts % (Manual) Lymphocytes % (Manual) Seg Neutrophils # Seg Neutrophils # Man Lymphocytes # (Manual) Monocytes # (Manual) PT INR D-Dimer ABG pH ABG pO2 ABG HCO3 ABG O2 Saturation ABG Base Excess ABG Hemoglobin Oxyhemoglobin Sodium 132 L Potassium Chloride 92.8 L Carbon Dioxide BUN 30 H Creatinine Glucose 115 H POC Glucose 111 H 111 H Lactic Acid Calcium Phosphorus Magnesium 1.60 L AST ALT Alkaline Phosphatase Lactate Dehydrogenase Troponin T C-Reactive Protein NT-Pro-B Natriuret Pep Total Protein Albumin LDL Cholesterol Direct Vitamin B12 Urine WBC (Auto) Fluid Glucose Fluid Total Protein Vancomycin Trough Crossmatch 01/05/22 01/05/22 01/05/22 04:30 04:30 17:04 WBC RBC 3.11 L Hgb 8.4 L Hct 25.5 L MCV MCH 27 L MCHC RDW 17.6 H Plt Count Eos % (Auto) Eos # (Auto) Seg Neuts % (Manual) Lymphocytes % (Manual) Seg Neutrophils # Seg Neutrophils # Man Lymphocytes # (Manual) Monocytes # (Manual) PT INR D-Dimer ABG pH ABG pO2 ABG HCO3 ABG O2 Saturation ABG Base Excess ABG Hemoglobin Oxyhemoglobin Sodium 135 L Potassium Chloride 93.6 L Carbon Dioxide BUN 29 H Creatinine Glucose POC Glucose 67 L Lactic Acid Calcium Phosphorus Magnesium AST ALT Alkaline Phosphatase Lactate Dehydrogenase Troponin T C-Reactive Protein NT-Pro-B Natriuret Pep Total Protein Albumin LDL Cholesterol Direct Vitamin B12 Urine WBC (Auto) Fluid Glucose Fluid Total Protein Vancomycin Trough Crossmatch 01/05/22 01/06/22 01/06/22 23:27 04:06 04:06 WBC RBC 2.89 L Hgb 7.7 L Hct 23.8 L MCV MCH 27 L MCHC RDW 18.0 H Plt Count Eos % (Auto) Eos # (Auto) Seg Neuts % (Manual) Lymphocytes % (Manual) Seg Neutrophils # Seg Neutrophils # Man Lymphocytes # (Manual) Monocytes # (Manual) PT 16.9 H INR 1.23 H D-Dimer ABG pH ABG pO2 ABG HCO3 ABG O2 Saturation ABG Base Excess ABG Hemoglobin Oxyhemoglobin Sodium Potassium Chloride Carbon Dioxide BUN Creatinine Glucose POC Glucose 110 H Lactic Acid Calcium Phosphorus Magnesium AST ALT Alkaline Phosphatase Lactate Dehydrogenase Troponin T C-Reactive Protein NT-Pro-B Natriuret Pep Total Protein Albumin LDL Cholesterol Direct Vitamin B12 Urine WBC (Auto) Fluid Glucose Fluid Total Protein Vancomycin Trough Crossmatch 01/06/22 01/06/22 01/06/22 04:06 13:40 23:41 WBC RBC Hgb Hct MCV MCH MCHC RDW Plt Count Eos % (Auto) Eos # (Auto) Seg Neuts % (Manual) Lymphocytes % (Manual) Seg Neutrophils # Seg Neutrophils # Man Lymphocytes # (Manual) Monocytes # (Manual) PT INR D-Dimer ABG pH ABG pO2 ABG HCO3 ABG O2 Saturation ABG Base Excess ABG Hemoglobin Oxyhemoglobin Sodium 132 L Potassium Chloride 92.3 L Carbon Dioxide BUN 26 H Creatinine Glucose 111 H POC Glucose 120 H Lactic Acid Calcium Phosphorus Magnesium AST ALT Alkaline Phosphatase Lactate Dehydrogenase Troponin T C-Reactive Protein NT-Pro-B Natriuret Pep Total Protein Albumin LDL Cholesterol Direct Vitamin B12 Urine WBC (Auto) Fluid Glucose 96 H Fluid Total Protein < 3.0 L Vancomycin Trough Crossmatch 01/07/22 01/07/22 01/07/22 05:20 11:30 17:00 WBC RBC Hgb Hct MCV MCH MCHC RDW Plt Count Eos % (Auto) Eos # (Auto) Seg Neuts % (Manual) Lymphocytes % (Manual) Seg Neutrophils # Seg Neutrophils # Man Lymphocytes # (Manual) Monocytes # (Manual) PT INR D-Dimer ABG pH ABG pO2 ABG HCO3 ABG O2 Saturation ABG Base Excess ABG Hemoglobin Oxyhemoglobin Sodium Potassium Chloride Carbon Dioxide BUN Creatinine Glucose POC Glucose 111 H 113 H 121 H Lactic Acid Calcium Phosphorus Magnesium AST ALT Alkaline Phosphatase Lactate Dehydrogenase Troponin T C-Reactive Protein NT-Pro-B Natriuret Pep Total Protein Albumin LDL Cholesterol Direct Vitamin B12 Urine WBC (Auto) Fluid Glucose Fluid Total Protein Vancomycin Trough Crossmatch 01/07/22 01/08/22 01/08/22 23:41 11:26 16:23 WBC RBC Hgb Hct MCV MCH MCHC RDW Plt Count Eos % (Auto) Eos # (Auto) Seg Neuts % (Manual) Lymphocytes % (Manual) Seg Neutrophils # Seg Neutrophils # Man Lymphocytes # (Manual) Monocytes # (Manual) PT INR D-Dimer ABG pH ABG pO2 ABG HCO3 ABG O2 Saturation ABG Base Excess ABG Hemoglobin Oxyhemoglobin Sodium Potassium Chloride Carbon Dioxide BUN Creatinine Glucose POC Glucose 110 H 129 H 118 H Lactic Acid Calcium Phosphorus Magnesium AST ALT Alkaline Phosphatase Lactate Dehydrogenase Troponin T C-Reactive Protein NT-Pro-B Natriuret Pep Total Protein Albumin LDL Cholesterol Direct Vitamin B12 Urine WBC (Auto) Fluid Glucose Fluid Total Protein Vancomycin Trough Crossmatch 01/09/22 01/10/22 01/10/22 18:13 00:27 04:00 WBC RBC Hgb Hct MCV MCH MCHC RDW Plt Count Eos % (Auto) Eos # (Auto) Seg Neuts % (Manual) Lymphocytes % (Manual) Seg Neutrophils # Seg Neutrophils # Man Lymphocytes # (Manual) Monocytes # (Manual) PT INR D-Dimer ABG pH ABG pO2 ABG HCO3 ABG O2 Saturation ABG Base Excess ABG Hemoglobin Oxyhemoglobin Sodium 133 L Potassium Chloride 92.6 L Carbon Dioxide 31 H BUN 29 H Creatinine 0.5 L Glucose 115 H POC Glucose 118 H 111 H Lactic Acid Calcium Phosphorus Magnesium AST ALT Alkaline Phosphatase Lactate Dehydrogenase Troponin T C-Reactive Protein NT-Pro-B Natriuret Pep Total Protein Albumin LDL Cholesterol Direct Vitamin B12 Urine WBC (Auto) Fluid Glucose Fluid Total Protein Vancomycin Trough Crossmatch 01/10/22 01/11/22 01/11/22 05:47 05:10 11:14 WBC RBC Hgb Hct MCV MCH MCHC RDW Plt Count Eos % (Auto) Eos # (Auto) Seg Neuts % (Manual) Lymphocytes % (Manual) Seg Neutrophils # Seg Neutrophils # Man Lymphocytes # (Manual) Monocytes # (Manual) PT INR D-Dimer ABG pH ABG pO2 ABG HCO3 ABG O2 Saturation ABG Base Excess ABG Hemoglobin Oxyhemoglobin Sodium Potassium Chloride Carbon Dioxide BUN Creatinine Glucose POC Glucose 106 H 118 H 136 H Lactic Acid Calcium Phosphorus Magnesium AST ALT Alkaline Phosphatase Lactate Dehydrogenase Troponin T C-Reactive Protein NT-Pro-B Natriuret Pep Total Protein Albumin LDL Cholesterol Direct Vitamin B12 Urine WBC (Auto) Fluid Glucose Fluid Total Protein Vancomycin Trough Crossmatch 01/11/22 01/11/22 01/12/22 17:14 23:52 05:39 WBC RBC Hgb Hct MCV MCH MCHC RDW Plt Count Eos % (Auto) Eos # (Auto) Seg Neuts % (Manual) Lymphocytes % (Manual) Seg Neutrophils # Seg Neutrophils # Man Lymphocytes # (Manual) Monocytes # (Manual) PT INR D-Dimer ABG pH ABG pO2 ABG HCO3 ABG O2 Saturation ABG Base Excess ABG Hemoglobin Oxyhemoglobin Sodium Potassium Chloride Carbon Dioxide BUN Creatinine Glucose POC Glucose 117 H 110 H 110 H Lactic Acid Calcium Phosphorus Magnesium AST ALT Alkaline Phosphatase Lactate Dehydrogenase Troponin T C-Reactive Protein NT-Pro-B Natriuret Pep Total Protein Albumin LDL Cholesterol Direct Vitamin B12 Urine WBC (Auto) Fluid Glucose Fluid Total Protein Vancomycin Trough Crossmatch 01/13/22 01/13/22 01/14/22 11:15 17:21 05:33 WBC RBC Hgb Hct MCV MCH MCHC RDW Plt Count Eos % (Auto) Eos # (Auto) Seg Neuts % (Manual) Lymphocytes % (Manual) Seg Neutrophils # Seg Neutrophils # Man Lymphocytes # (Manual) Monocytes # (Manual) PT INR D-Dimer ABG pH ABG pO2 ABG HCO3 ABG O2 Saturation ABG Base Excess ABG Hemoglobin Oxyhemoglobin Sodium Potassium Chloride Carbon Dioxide BUN Creatinine Glucose POC Glucose 113 H 121 H 136 H Lactic Acid Calcium Phosphorus Magnesium AST ALT Alkaline Phosphatase Lactate Dehydrogenase Troponin T C-Reactive Protein NT-Pro-B Natriuret Pep Total Protein Albumin LDL Cholesterol Direct Vitamin B12 Urine WBC (Auto) Fluid Glucose Fluid Total Protein Vancomycin Trough Crossmatch 01/14/22 01/15/22 01/15/22 11:28 00:13 05:24 WBC RBC Hgb Hct MCV MCH MCHC RDW Plt Count Eos % (Auto) Eos # (Auto) Seg Neuts % (Manual) Lymphocytes % (Manual) Seg Neutrophils # Seg Neutrophils # Man Lymphocytes # (Manual) Monocytes # (Manual) PT INR D-Dimer ABG pH ABG pO2 ABG HCO3 ABG O2 Saturation ABG Base Excess ABG Hemoglobin Oxyhemoglobin Sodium Potassium Chloride Carbon Dioxide BUN Creatinine Glucose POC Glucose 117 H 109 H 117 H Lactic Acid Calcium Phosphorus Magnesium AST ALT Alkaline Phosphatase Lactate Dehydrogenase Troponin T C-Reactive Protein NT-Pro-B Natriuret Pep Total Protein Albumin LDL Cholesterol Direct Vitamin B12 Urine WBC (Auto) Fluid Glucose Fluid Total Protein Vancomycin Trough Crossmatch 01/15/22 01/15/22 01/15/22 11:38 14:36 17:05 WBC RBC 3.11 L Hgb 8.4 L Hct 25.7 L MCV MCH 27 L MCHC RDW 17.2 H Plt Count Eos % (Auto) Eos # (Auto) Seg Neuts % (Manual) 82.0 H Lymphocytes % (Manual) 11.0 L Seg Neutrophils # Seg Neutrophils # Man 8.8 H Lymphocytes # (Manual) Monocytes # (Manual) PT INR D-Dimer ABG pH ABG pO2 ABG HCO3 ABG O2 Saturation ABG Base Excess ABG Hemoglobin Oxyhemoglobin Sodium Potassium Chloride Carbon Dioxide BUN Creatinine Glucose POC Glucose 107 H 108 H Lactic Acid Calcium Phosphorus Magnesium AST ALT Alkaline Phosphatase Lactate Dehydrogenase Troponin T C-Reactive Protein NT-Pro-B Natriuret Pep Total Protein Albumin LDL Cholesterol Direct Vitamin B12 Urine WBC (Auto) Fluid Glucose Fluid Total Protein Vancomycin Trough Crossmatch 01/15/22 01/15/22 01/15/22 21:07 Unknown Unknown WBC RBC 2.97 L Hgb 8.0 L Hct 24.3 L MCV MCH 27 L MCHC RDW 17.2 H Plt Count Eos % (Auto) Eos # (Auto) Seg Neuts % (Manual) Lymphocytes % (Manual) Seg Neutrophils # Seg Neutrophils # Man Lymphocytes # (Manual) Monocytes # (Manual) PT INR D-Dimer ABG pH ABG pO2 ABG HCO3 ABG O2 Saturation ABG Base Excess ABG Hemoglobin Oxyhemoglobin Sodium 131 L Potassium Chloride 93.1 L Carbon Dioxide BUN 27 H Creatinine Glucose 110 H POC Glucose Lactic Acid Calcium 8.3 L Phosphorus Magnesium AST ALT Alkaline Phosphatase Lactate Dehydrogenase Troponin T 0.088 H C-Reactive Protein NT-Pro-B Natriuret Pep Total Protein Albumin LDL Cholesterol Direct 44 L Vitamin B12 Urine WBC (Auto) Fluid Glucose Fluid Total Protein Vancomycin Trough Crossmatch 01/15/22 01/16/22 01/16/22 Unknown 05:21 12:59 WBC RBC Hgb Hct MCV MCH MCHC RDW Plt Count Eos % (Auto) Eos # (Auto) Seg Neuts % (Manual) Lymphocytes % (Manual) Seg Neutrophils # Seg Neutrophils # Man Lymphocytes # (Manual) Monocytes # (Manual) PT INR D-Dimer ABG pH ABG pO2 ABG HCO3 ABG O2 Saturation ABG Base Excess ABG Hemoglobin Oxyhemoglobin Sodium 134 L 134 L Potassium 3.4 L Chloride 93.9 L 95.4 L Carbon Dioxide BUN 26 H 24 H Creatinine Glucose 168 H POC Glucose 159 H Lactic Acid Calcium 8.1 L Phosphorus Magnesium AST ALT Alkaline Phosphatase Lactate Dehydrogenase Troponin T 0.078 H C-Reactive Protein NT-Pro-B Natriuret Pep Total Protein Albumin LDL Cholesterol Direct Vitamin B12 Urine WBC (Auto) Fluid Glucose Fluid Total Protein Vancomycin Trough Crossmatch 01/16/22 01/17/22 01/17/22 23:22 05:20 14:24 WBC RBC Hgb Hct MCV MCH MCHC RDW Plt Count Eos % (Auto) Eos # (Auto) Seg Neuts % (Manual) Lymphocytes % (Manual) Seg Neutrophils # Seg Neutrophils # Man Lymphocytes # (Manual) Monocytes # (Manual) PT INR D-Dimer ABG pH ABG pO2 55.0 L ABG HCO3 29.5 H ABG O2 Saturation 87.8 L ABG Base Excess 4.5 H ABG Hemoglobin 9.3 L Oxyhemoglobin 86.1 L Sodium Potassium Chloride Carbon Dioxide BUN Creatinine Glucose POC Glucose 113 H 111 H Lactic Acid Calcium Phosphorus Magnesium AST ALT Alkaline Phosphatase Lactate Dehydrogenase Troponin T C-Reactive Protein NT-Pro-B Natriuret Pep Total Protein Albumin LDL Cholesterol Direct Vitamin B12 Urine WBC (Auto) Fluid Glucose Fluid Total Protein Vancomycin Trough Crossmatch 01/17/22 01/18/22 01/18/22 17:14 05:39 11:53 WBC RBC Hgb Hct MCV MCH MCHC RDW Plt Count Eos % (Auto) Eos # (Auto) Seg Neuts % (Manual) Lymphocytes % (Manual) Seg Neutrophils # Seg Neutrophils # Man Lymphocytes # (Manual) Monocytes # (Manual) PT INR D-Dimer ABG pH ABG pO2 ABG HCO3 ABG O2 Saturation ABG Base Excess ABG Hemoglobin Oxyhemoglobin Sodium Potassium Chloride Carbon Dioxide BUN Creatinine Glucose POC Glucose 126 H 108 H 113 H Lactic Acid Calcium Phosphorus Magnesium AST ALT Alkaline Phosphatase Lactate Dehydrogenase Troponin T C-Reactive Protein NT-Pro-B Natriuret Pep Total Protein Albumin LDL Cholesterol Direct Vitamin B12 Urine WBC (Auto) Fluid Glucose Fluid Total Protein Vancomycin Trough Crossmatch 01/18/22 01/19/22 01/19/22 12:50 00:04 04:50 WBC RBC 3.14 L Hgb 8.4 L Hct 26.0 L MCV MCH 27 L MCHC RDW 18.2 H Plt Count Eos % (Auto) Eos # (Auto) Seg Neuts % (Manual) Lymphocytes % (Manual) Seg Neutrophils # Seg Neutrophils # Man Lymphocytes # (Manual) Monocytes # (Manual) PT INR D-Dimer ABG pH ABG pO2 112.3 H ABG HCO3 30.9 H ABG O2 Saturation ABG Base Excess 5.8 H ABG Hemoglobin 8.8 L Oxyhemoglobin Sodium Potassium Chloride Carbon Dioxide BUN Creatinine Glucose POC Glucose 115 H Lactic Acid Calcium Phosphorus Magnesium AST ALT Alkaline Phosphatase Lactate Dehydrogenase Troponin T C-Reactive Protein NT-Pro-B Natriuret Pep Total Protein Albumin LDL Cholesterol Direct Vitamin B12 Urine WBC (Auto) Fluid Glucose Fluid Total Protein Vancomycin Trough Crossmatch 01/19/22 01/19/22 01/19/22 04:50 11:51 20:45 WBC RBC Hgb Hct MCV MCH MCHC RDW Plt Count Eos % (Auto) Eos # (Auto) Seg Neuts % (Manual) Lymphocytes % (Manual) Seg Neutrophils # Seg Neutrophils # Man Lymphocytes # (Manual) Monocytes # (Manual) PT INR D-Dimer ABG pH ABG pO2 95.2 H ABG HCO3 29.8 H ABG O2 Saturation ABG Base Excess 4.3 H ABG Hemoglobin 8.0 L Oxyhemoglobin Sodium 134 L Potassium Chloride 95.4 L Carbon Dioxide BUN 28 H Creatinine Glucose POC Glucose 111 H Lactic Acid Calcium Phosphorus Magnesium AST ALT Alkaline Phosphatase Lactate Dehydrogenase Troponin T C-Reactive Protein NT-Pro-B Natriuret Pep Total Protein Albumin LDL Cholesterol Direct Vitamin B12 Urine WBC (Auto) Fluid Glucose Fluid Total Protein Vancomycin Trough Crossmatch 01/20/22 01/21/22 01/22/22 11:43 23:32 11:12 WBC RBC Hgb Hct MCV MCH MCHC RDW Plt Count Eos % (Auto) Eos # (Auto) Seg Neuts % (Manual) Lymphocytes % (Manual) Seg Neutrophils # Seg Neutrophils # Man Lymphocytes # (Manual) Monocytes # (Manual) PT INR D-Dimer ABG pH ABG pO2 ABG HCO3 ABG O2 Saturation ABG Base Excess ABG Hemoglobin Oxyhemoglobin Sodium Potassium Chloride Carbon Dioxide BUN Creatinine Glucose POC Glucose 118 H 113 H 110 H Lactic Acid Calcium Phosphorus Magnesium AST ALT Alkaline Phosphatase Lactate Dehydrogenase Troponin T C-Reactive Protein NT-Pro-B Natriuret Pep Total Protein Albumin LDL Cholesterol Direct Vitamin B12 Urine WBC (Auto) Fluid Glucose Fluid Total Protein Vancomycin Trough Crossmatch 01/22/22 01/23/22 01/23/22 17:54 09:36 11:49 WBC RBC Hgb Hct MCV MCH MCHC RDW Plt Count Eos % (Auto) Eos # (Auto) Seg Neuts % (Manual) Lymphocytes % (Manual) Seg Neutrophils # Seg Neutrophils # Man Lymphocytes # (Manual) Monocytes # (Manual) PT INR D-Dimer ABG pH ABG pO2 ABG HCO3 ABG O2 Saturation ABG Base Excess ABG Hemoglobin Oxyhemoglobin Sodium Potassium Chloride Carbon Dioxide BUN Creatinine Glucose POC Glucose 115 H 194 H Lactic Acid Calcium Phosphorus Magnesium AST ALT Alkaline Phosphatase Lactate Dehydrogenase Troponin T C-Reactive Protein NT-Pro-B Natriuret Pep Total Protein Albumin LDL Cholesterol Direct Vitamin B12 Urine WBC (Auto) 16.0 H Fluid Glucose Fluid Total Protein Vancomycin Trough Crossmatch 01/23/22 01/24/22 01/24/22 11:50 05:37 11:56 WBC RBC Hgb Hct MCV MCH MCHC RDW Plt Count Eos % (Auto) Eos # (Auto) Seg Neuts % (Manual) Lymphocytes % (Manual) Seg Neutrophils # Seg Neutrophils # Man Lymphocytes # (Manual) Monocytes # (Manual) PT INR D-Dimer ABG pH 7.310 L ABG pO2 43.9 L ABG HCO3 28.0 H ABG O2 Saturation 70.8 L ABG Base Excess ABG Hemoglobin 9.3 L Oxyhemoglobin 69.2 L Sodium Potassium Chloride Carbon Dioxide BUN Creatinine Glucose POC Glucose 118 H 119 H Lactic Acid Calcium Phosphorus Magnesium AST ALT Alkaline Phosphatase Lactate Dehydrogenase Troponin T C-Reactive Protein NT-Pro-B Natriuret Pep Total Protein Albumin LDL Cholesterol Direct Vitamin B12 Urine WBC (Auto) Fluid Glucose Fluid Total Protein Vancomycin Trough Crossmatch 01/25/22 01/25/22 01/26/22 12:20 13:17 05:59 WBC RBC Hgb Hct MCV MCH MCHC RDW Plt Count Eos % (Auto) Eos # (Auto) Seg Neuts % (Manual) Lymphocytes % (Manual) Seg Neutrophils # Seg Neutrophils # Man Lymphocytes # (Manual) Monocytes # (Manual) PT INR D-Dimer ABG pH 7.488 H ABG pO2 58.9 L ABG HCO3 28.3 H ABG O2 Saturation 94.9 L ABG Base Excess 4.7 H ABG Hemoglobin 8.7 L Oxyhemoglobin 92.7 L Sodium Potassium Chloride Carbon Dioxide BUN Creatinine Glucose POC Glucose 126 H 130 H Lactic Acid Calcium Phosphorus Magnesium AST ALT Alkaline Phosphatase Lactate Dehydrogenase Troponin T C-Reactive Protein NT-Pro-B Natriuret Pep Total Protein Albumin LDL Cholesterol Direct Vitamin B12 Urine WBC (Auto) Fluid Glucose Fluid Total Protein Vancomycin Trough Crossmatch 01/26/22 01/26/22 01/26/22 10:16 10:16 11:49 WBC 12.7 H RBC Hgb 9.9 L Hct MCV MCH 27 L MCHC RDW 18.3 H Plt Count Eos % (Auto) 4.5 H Eos # (Auto) 0.6 H Seg Neuts % (Manual) Lymphocytes % (Manual) Seg Neutrophils # 8.2 H Seg Neutrophils # Man Lymphocytes # (Manual) Monocytes # (Manual) PT INR D-Dimer ABG pH ABG pO2 ABG HCO3 ABG O2 Saturation ABG Base Excess ABG Hemoglobin Oxyhemoglobin Sodium Potassium Chloride 96.6 L Carbon Dioxide BUN 29 H Creatinine Glucose 140 H POC Glucose 161 H Lactic Acid Calcium Phosphorus Magnesium AST ALT Alkaline Phosphatase Lactate Dehydrogenase Troponin T C-Reactive Protein NT-Pro-B Natriuret Pep Total Protein Albumin LDL Cholesterol Direct Vitamin B12 Urine WBC (Auto) Fluid Glucose Fluid Total Protein Vancomycin Trough Crossmatch 01/27/22 01/27/22 01/27/22 00:22 12:48 23:08 WBC RBC Hgb Hct MCV MCH MCHC RDW Plt Count Eos % (Auto) Eos # (Auto) Seg Neuts % (Manual) Lymphocytes % (Manual) Seg Neutrophils # Seg Neutrophils # Man Lymphocytes # (Manual) Monocytes # (Manual) PT INR D-Dimer ABG pH ABG pO2 ABG HCO3 ABG O2 Saturation ABG Base Excess ABG Hemoglobin Oxyhemoglobin Sodium Potassium Chloride Carbon Dioxide BUN Creatinine Glucose POC Glucose 107 H 131 H 109 H Lactic Acid Calcium Phosphorus Magnesium AST ALT Alkaline Phosphatase Lactate Dehydrogenase Troponin T C-Reactive Protein NT-Pro-B Natriuret Pep Total Protein Albumin LDL Cholesterol Direct Vitamin B12 Urine WBC (Auto) Fluid Glucose Fluid Total Protein Vancomycin Trough Crossmatch 01/29/22 01/29/22 01/29/22 04:40 05:52 11:26 WBC RBC Hgb Hct MCV MCH MCHC RDW Plt Count Eos % (Auto) Eos # (Auto) Seg Neuts % (Manual) Lymphocytes % (Manual) Seg Neutrophils # Seg Neutrophils # Man Lymphocytes # (Manual) Monocytes # (Manual) PT INR D-Dimer ABG pH ABG pO2 ABG HCO3 ABG O2 Saturation ABG Base Excess ABG Hemoglobin Oxyhemoglobin Sodium Potassium Chloride 95.9 L Carbon Dioxide BUN 36 H Creatinine Glucose 127 H POC Glucose 108 H 119 H Lactic Acid Calcium Phosphorus Magnesium AST ALT Alkaline Phosphatase Lactate Dehydrogenase Troponin T C-Reactive Protein NT-Pro-B Natriuret Pep Total Protein Albumin LDL Cholesterol Direct Vitamin B12 Urine WBC (Auto) Fluid Glucose Fluid Total Protein Vancomycin Trough Crossmatch 01/30/22 01/30/22 01/30/22 05:29 12:44 23:34 WBC RBC Hgb Hct MCV MCH MCHC RDW Plt Count Eos % (Auto) Eos # (Auto) Seg Neuts % (Manual) Lymphocytes % (Manual) Seg Neutrophils # Seg Neutrophils # Man Lymphocytes # (Manual) Monocytes # (Manual) PT INR D-Dimer ABG pH ABG pO2 ABG HCO3 ABG O2 Saturation ABG Base Excess ABG Hemoglobin Oxyhemoglobin Sodium Potassium Chloride Carbon Dioxide BUN Creatinine Glucose POC Glucose 109 H 108 H 109 H Lactic Acid Calcium Phosphorus Magnesium AST ALT Alkaline Phosphatase Lactate Dehydrogenase Troponin T C-Reactive Protein NT-Pro-B Natriuret Pep Total Protein Albumin LDL Cholesterol Direct Vitamin B12 Urine WBC (Auto) Fluid Glucose Fluid Total Protein Vancomycin Trough Crossmatch 01/31/22 01/31/22 04:08 05:12 WBC RBC Hgb Hct MCV MCH MCHC RDW Plt Count Eos % (Auto) Eos # (Auto) Seg Neuts % (Manual) Lymphocytes % (Manual) Seg Neutrophils # Seg Neutrophils # Man Lymphocytes # (Manual) Monocytes # (Manual) PT INR D-Dimer ABG pH ABG pO2 ABG HCO3 ABG O2 Saturation ABG Base Excess ABG Hemoglobin Oxyhemoglobin Sodium 136 L Potassium Chloride 97.6 L Carbon Dioxide BUN 41 H Creatinine Glucose 120 H POC Glucose 111 H Lactic Acid Calcium Phosphorus Magnesium AST ALT Alkaline Phosphatase Lactate Dehydrogenase Troponin T C-Reactive Protein NT-Pro-B Natriuret Pep Total Protein Albumin LDL Cholesterol Direct Vitamin B12 Urine WBC (Auto) Fluid Glucose Fluid Total Protein Vancomycin Trough Crossmatch Allied health notes reviewed: nursing
[2022-01-31] MEDS: traZODone 50 MG TAB PO SCH (21:05)
[2022-01-31] MEDS: PRAVASTATIN 20 MG TAB FEEDTUBE SCH (21:05)
[2022-01-31] MEDS: MELATONIN 5 MG TAB PO SCH (21:07)
[2022-02-01] MEDS: SUCRALFATE 1 GM/10 ML ORAL LIQD FEEDTUBE SCH ×5 (00:58→23:11)
[2022-02-01] MEDS: LEVOTHYROXINE 125 MCG TAB FEEDTUBE SCH (05:31)
[2022-02-01 06:41] LABS: BUN/Creatinine Ratio 51; Blood Urea Nitrogen 41 mg/dL (7-17); Hemolysis Index 1
[2022-02-01] MEDS: MIDODRINE 5 MG TAB FEEDTUBE SCH ×3 (08:02→16:02)
[2022-02-01] MEDS: HYDROcodone/ACETAMINOPHEN 10-325MG TAB FEEDTUBE SCH ×3 (08:02→21:03)
--- NOTE | 2022-02-01 08:15 | XRay Report ---
CHEST 1 VIEW INDICATION / CLINICAL INFORMATION: pleural effusion. COMPARISON: 01/30/2022 FINDINGS: SUPPORT DEVICES: Tracheostomy tube, PICC line both remain in stable and satisfactory position. HEART / MEDIASTINUM: Stable. Pacemaker device is unchanged in position. 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 The lungs are better aerated, however. Right lung is grossly clear. Previously noted pulmonary edema has significantly imp roved. No pneumothorax. ADDITIONAL FINDINGS: No significant additional findings. IMPRESSION: 1. Overall improvement in the appearance of the chest radiograph. The lungs are better aerated and pu lmonary edema has improved. 2. Stable appearance of left lower lobe pleural-parenchymal disease. Signer Name: Irma Gomez MD Signed: 02/01/2022 8:11 AM Workstation Name: [id number]
[2022-02-01] MEDS: SULFAMETHOXAZOLE/TRIMETHOPRIM 200-40 MG/5 ML ORAL LIQD 30 ML PO SCH (10:15)
[2022-02-01] MEDS: SENNOSIDES ORAL LIQD 8.8 MG/5 ML ORAL LIQD FEEDTUBE SCH ×2 (10:15→21:02)
[2022-02-01] MEDS: DOCUSATE SODIUM 100 MG/10 ML ORAL LIQD FEEDTUBE SCH ×2 (10:15→21:02)
[2022-02-01] MEDS: LANSOPRAZOLE 30 MG SOLUTAB FEEDTUBE SCH ×2 (10:16→21:02)
[2022-02-01] MEDS: GABAPENTIN 500 MG/10 ML ORAL LIQD FEEDTUBE SCH (10:16)
[2022-02-01] MEDS: QUEtiapine 25 MG TAB FEEDTUBE SCH ×2 (10:16→21:02)
[2022-02-01] MEDS: SPIRONOLACTONE 25 MG TAB FEEDTUBE SCH (10:16)
[2022-02-01] MEDS: METOPROLOL TARTRATE 25 MG TAB FEEDTUBE SCH ×2 (10:16→21:03)
[2022-02-01] MEDS: BUMETANIDE 1 MG/4 ML INJ IV SCH (10:17)
[2022-02-01] MEDS: POLYETHYLENE GLYCOL 3350 17 GM POWDER FEEDTUBE SCH (10:17)
[2022-02-01] MEDS: busPIRone 5 MG TAB FEEDTUBE SCH ×2 (10:19→21:03)
--- NOTE | 2022-02-01 10:27 | Progress Note ---
Assessment and Plan Assessment and plan: This is an 82-year-old female with DM, HTN , CHB s/p PPM, CAD s/p PCI and arthritis who presented to the emergency department on 11/04 for shortness of breath ongoing for the past 3 days, cough and according to family a fever of 102.2. Upon arrival of EMS patient was found to be tachypneic and hypoxic with SPO2 of 76% on room air which later improved to 88% on nonrebreather. Work-up in the emergency department included a CXR which showed bilateral interstitial pulmonary edema with bilateral pleural effusions and bibasilar opacities, leukocytosis and anemia with a hemoglobin of 6.1. Patient was admitted to the hospitalist service with acute anemia, acute hypoxic respiratory failure, bilateral pneumonia and COVID-19 PUI with consults to pulmonology, infectious disease and later cardiology. Patient was eventually intubated in the emergency department on 11/06. Hospital Course to date: 11/04/2021: Empiric therapy with iv levaquin/vancomycin. COVID PCR pending. Will consult ID. PCCM consulted, will follow recs. Hypotensive this AM, ordered bolus and fluids at 150 cc/hr. May require pressor support if bp does not improve. 11/05/2021: GBS on bcx +, currently on rocephin IV. Currently on bipap due to respiratory distress overnight. Worsening BL opacities on CXR. May be volume overload vs pneumonia. Unfortunately bp too low for lasix at this point. WIll continue levophed and bipap. Once able to tolerate, may do trial of albumin/lasix. Call attempt made to Niraj, no response. Will try again tomorrow to update. 11/06/2021: Decompensated overnight requiring intubation. CXR shows worsening interstitial infiltrates. Currenlty on dopamine, levophed, vasopressin. PICC line ordered. Advised RN to place gamble for I/O monitoring. Would benefit from diuresis but very volume overloaded. Prognosis guarded 11/08: Off sedation this am, remains unresponsive only grimace to pain. Hold all sedatives agents for now, patient is off pressors this am. Hypernatremia from today's lab- D5W X1bag, and low K repleted, repeat lab in the am. Severe constipation also noted from KUB, BR added. 11/09: Sudden SPO2 drop in the 60s this am. Patient was manually bagged and deep suctioned. Patient is currently stable on the vent, repeat CXR with no significant change. D/w CCM Mucomyst and brochodilator added. Patient mentation is unchanged, continue to hold off on sedative agents. Neurology consulted. 11/10: Acute DVT noted on bilateral lower extremity Doppler ultrasound therefore she was started on Lovenox treatment dose. Failed SBT. Hypernatremia and hyperchloremia noted, free water flush adjusted. 11/11: Patient noted to be febrile with increasing of the cytosis, UA/BC sent and CXR ordered. ID escalated antibiotics to cefepime. CXR demonstrated mucous plug, bedside bronchoscopy was performed and O ETT was changed over bougie from 6 cm to 7.5. Patient was noted to have a pneumothorax postprocedure and chest tube was placed. Family updated by [facility]. Free water flush increased and will add Jaswant supplementation. 11/12: Patient not noted to follow commands, hypernatremia worsen/persist, increasing free water flush, potassium and magnesium and phosphorus repleted. Hemoglobin noted to be 7./24.5 from 7.03/12 yesterday. We will continue to trend and monitor. Vent changes per [facility]. Repeat CXR showed no residual pneumothorax. Consider waterseal tomorrow. Given persistent leukocytosis antibiotics escalated to cefepime per ID. 11/13: Remains on cefepime and vancomycin, vent changes per [facility]. Anemia noted and given 1 unit PRBC. And beta-charleen held in setting of Levophed drip infusing. Remains on fentanyl drip. 11/14: Patient put on CPAP trial by [facility], will continue chest tube until after extubation. Will rest on assist control. CT brain was cancelled by straddle buggy operator and reordered. 11/15: Patient removed chest tube overnight. Will obtain cxr. remains on low dose levo. CTH completed with no acute findings. RT to place on CPAP. 11/16: Hypernatremia/hyperchloremia noted on the increase of day water flushes. Anemia noted and ordered PRBC. asked RT to place on cpap but not done yet 11/17: Patient remains on the vent, awake and following commands. H&H stable s/p 2units PRBCs. GI on consult, no intervention at this time. Will continue protonix gtt and serial H&H Q6hrs. Keep patient NPO for now, D5w added for hypernatremia and NPO status. Plan for IVC filter placement today by Vascular. 11/18: Patient is s/p IVC filter. H&H continue to trend down, hbg 6.1 this am, 1 unit of PRBCs ordered. Plan for possible EGD today by GI. Keep patient NPO, continue PPI drip and serial H&H Q6hrs. Electrolytes repleted, repeat lab in the am 11/19: S/p EGD- larger duodenal ulcer noted, see operative note. GI recommendations noted also noted. H&H stable this am. Keep patient on protonix gtt for now. Will keep patient NPO, continue IVF and serial H&H for now. Electrolytes repleted, repeat labs in the am 11/20: Very agitated and restless this am, fentanyl gtt resumed. Patient remains on protonix gtt, H&H remains stable. Will switch protonix gtt to IV BID, continue carafate and okay to resume meds at this time. Will F/u with GI to see if TF can be resumed. Gamble was reinserted overnight for retention. Electrolytes repleted, repeat in the am. Plan for possible PST today for possible extubation per CCM. 11/21: Patient is now on seroquel and patient's home buspar resumed. Patient more calm this morning, fentanyl gtt is off. H&H remains stable and patient is tolerating TF. Patient had a runs of Vtach/PVCs this am, BB added per Cardio. Continue daily PS and wean trial for possible extubation. 11/22: Back on fentanyl gtt overnight , RASS o to -1, following commands. Patient failed PST this am due to increased work of breathing and low SPO2, ABG pending. Patient is also with worsen pitting edema, lasix is still on hold. Will discuss with cardio and CCM to possibly resume lasix. 11/23: MARIA DEL CARMEN overnight. Patient failed PST again this am. Per CCM plan for possible trach and PEG, hold off on IV lasix for now. General surgery consulted and family is aware of possible Trach and PEG. 11/24: Trach/PEG pending this week, continue SBT/SAT as tolerated. No acute events reported overnight. 11/25: Patient was n.p.o. overnight and will remain n.p.o. tonight for trach/PEG tomorrow morning. She failed to support trial again. KUB obtained due to distended belly. 11/26: Patient scheduled for tracheostomy and PEG tube placement today, has been n.p.o. since midnight. No acute events reported overnight. [facility] ordered simethicone scheduled. 11/27: No acute events reported overnight, patient received trach/PEG yesterday. Has been on feedings since last night. Still awaiting LTAC placement. 11/28: Patient magnesium repleted, repeat a.m. labs, SBT 11/29: Patient complains of chest pain but ECG obtained which showed no acute findings, ordered troponin. Patient failed CPAP yesterday and was trialed again today. levophed was restarted but will aggressively wean 11/30: Patient failed SBT. Continue supportive care. Started gabapentin today 12/01: MARIA DEL CARMEN overnight. Continue daily PST. Case management to arrange possible placement 12/02: Report of dark stools overnight, patient is hemodynamically stable. H&H stable, patient is on PPI. Will continue to trend H&H. Continue daily PST as tolerated. Awaiting LTAC vs SNF placement. 12/03: Hypotensive overnight, requiring low dose pressors. S/p X3 days of gentle diurese. Will continue to monitor, wean off pressors as tolerated for MAP of 65. Patient Failed PST yesterday, case management to follow up with insurance for possible LTAC placement. Continue daily PST as tolerated. PT eval and treat ordered. 12/04: Increased agitation and anxiety overnight, remains on buspar and seroquel, trazadone added to promote rest. Patient is now working with PT, keep patient engage and awake during the day so she can rest at night. No BM for over 5 days, BR was adjusted. Patient did not tolerate PST again yesterday, continue daily PST as tolerated. Continue to titrate pressor for MAP above 65. Pending possible LTAC placement, case management to arrange. 12/05: Still not getting much rest overnight, will add melatonin for sleep. Continue to engage patient during the day and promote rest at night. TF was held due to concern for possible bleeding, H&H remains stable and stools normal this am. Resume TF and continue PPI and carafate. Remains on low dose levophed, titrate as tolerated. Continue daily PST. Possible LTAC placement, awaiting approval. 12/06: MARIA DEL CARMEN overnight. Patient rested overnight. Continue supportive measures. Daily PST as tolerated. Awaiting possible LTAC placement 12/07: MARIA DEL CARMEN overnight. Plan for Tpiece trial today. Continue current supportive measures. Possible LTAC placement 12/08: Patient placed on pressure support trial again today, started on Xanax, no acute events reported overnight. Awaiting insurance approval for LTAC. 12/09: Levophed discontinued, LTAC transfer denied, started on midodrine and Lasix, ultrasound chest pending, started on Xanax 0.[address] De León updated family at bedside today. Started on Dilaudid every 3 hours as needed. 12/10: Patient placed on CPAP trial this morning, no acute events reported overnight. Will order ultrasound-guided thoracentesis. 12/11: Patient had a thoracentesis today, will decrease Xanax dosage and continue midodrine and diuresing. Patient failed CPAP today. 12/12: Patient not tolerate CPAP trials today, no acute events reported overnight 12/13: No acute events overnight. continue PSV trials as tolerated. Daughter upd ated at bedside 12/14: Patient noted to be anemic today, ordered gastric occult. Patient seems to be oversedated therefore Xanax changed to as needed and fentanyl patch discontinued. We will continue to monitor hyponatremia. 12/15: MARIA DEL CARMEN overnight. s/p 1unit of PRBCs, H&H stable this am, no signs of any active bleeding. Continue daily PST as tolerated. Awaiting placement. 12/16: Hypertensive this am, Midodrine decreased. Continue daily PST. MARIA DEL CARMEN overnight 12/17: Patient Hgb dropped to 6 this am, no s/s of any active bleeding, VSS. Patient received 1unit of PRBC, will continue to trend H&H. Patient was pancultured and back on IV Abx due to persistent fevers yesterday. ID is also back on the case. Continue IV Abx per ID and f/u on cultures data for sensitivity. Patient also failed PST yesterday, continue daily PST as tolerated. Electrolytes repleted, repeat labs in the am. 12/18: Patient blood cultures is growing GPC 4 out 4 bottles. PICC line D/Rivas, patient is already on IV Abx-cefepine and Vanc and ID is following. Patient remains hemodynamically stable. Daily PST as tolerated adn PRN Benzo for anxiety. 12/19: MARIA DEL CARMEN overnight. Culture data noted, continue IV Abx per ID. Orders placed for repeat Bculture. Gamble D/C overnight, patient is voiding. Check bladder scan as needed for retention. Patient failed PST again today. Continue daily PST as tolerated. 12/20: Fevers improved, Cultures +MRSA, on Vanco per ID. Repeat 2D Echo to r/o endocarditis. Patient continue to fail PST, PEEP increased to 8 today. Continue pulmonary hygiene and vent wean per CCM. Sodium tab added for hyponatremia. 12/22: Patient on pressure support trial for approximately 4 hours today, midodrine dosage increased due to hypotension. Lasix discontinued. 12/23: Started on a.m. Seroquel dose, midodrine increased to 10 mg 3 times daily, 500 mL normal saline bolus. 12/24: Seroquel dose changed (25 every morning, 75 nightly). updated at bedside by Dr. De León. CPAP trials as tolerated. Continue vancomycin. Awaiting placement. 12/25: Continue CPAP as tolerated, added gasx for distention. Continue supportive care 12/26: Patient failed PSV this AM. no acute events overnight. 12/27: GI re-consulted due to abdominal distention. No acute events reported overnight. CPAP trials as tolerated. Dr. Mckenna will get a KUB to rule out possible obstruction. 12/28: KUB shows no acute process, CXR shows improvement. CPAP trials as tolerated. 12/29: CT Abd/pelvis noted with moderated bilateral pleural effusion, anasarca, and ascites. X1dose of IV lasix administered. D/w CCM and GI orders plan for thora and paracentesis by IR. Will also start patient on aldactone Qday. Patient is tolerating trickle feeds this am, continue TF and BR adjusted for constipation. Plan of care was discussed with patient and her at the bedside. Thorough discussion on patient's overall poor prognosis and that eddie ent will most likely be vent dependent. Patient's voiced understanding of the info given. All questions and concerns were voiced at this time. 12/30: Patient did not tolerate thoracentesis in IR yesterday due to change in LOC and hypoxia. Plan for possible bedside thoracentesis and paracentesis today. Patient remains afebrile. Patient required halfway house counselor IV abx therapy [id number] left, orders placed for a PICC. Patient remains with sign. Piting edema and anasarca, X1 does of PO Zaroxolyn and 2m of IV lasix given. Electrolytes repleted, repeat lab in the am. 12/31: Tolerated Rt. thoracentesis at the bedside yesterday, 1.4L removed. Patient remains stable on the vent this am, tolerating CPAP today PS dropped to 14. Recent CXR noted, left pleural effusion improved. Patient tolerated gentle diurese yesterday, good urine output reported. D/w CCM hold off on Left thoracentesis today, continue PO Aldactone and additonal zaroxolyn and IV lasix again today. F/u CXR in the am. 01/01: This am CXR noted with worsening bilateral pleural effusion. Patient is stable and tolerating PST this am, however PS is back up to 20 this am. BP is soft this am will hold off on IV diuretic for today, continue PO Aldactone. D/w CCM continue gentle diurese as tolerated. Will reassess in the am. Continue s upport care. 01/02: MARIA DEL CARMEN overnight. VSS this am, tolerating PST. X1dose of 25% IV Albumin following with 20mg IV Lasix today. Continue daily gentle diurese if hemodynamics tolerate it. Continue to monitor and replace electrolytes as needed 01/03: Abdominal distention and vomiting overnight, 600cc of gastric residual removed, TF held. KUB with no acute abnormality. Reglan added X2days, resume TF, and continue BR. Patient is tolerating PST this am. Hemodynamics remains stable, will continue gentle IV diurese. close monitoring to renal function and electrolytes. 01/04: Tolerating TF, nausea/vomiting resolved, last BM on 01/03. Continue Reglan X1 more day. Patient continue to tolerate PST. D/W CCM continue gentle diurese. F/U CXR in the am. Possible US thoracentesis tomorrow. 01/05: no acute events overnight. scheduled for thoracentesis today but procedure pushed to tomorrow. TF restarted and will be NPO post MN. 01/06: planned thoracentesis today. Working with CM for ltac/snf approval. 01/07: s/p thoracentesis 120 cc appears to have been removed. Pulm recommendations noted, agree with continued diuresis and weaning. Continued planning with CM for ltac/snf placement. 01/08: No new issues. Continue vent weaning per pulmonary. Continuing to work with CM for placement. 01/09: No new issues. Continue vent weaning per pulmonary. Continuing to work with CM for placement. Ordered BMP for tomorrow to check kidney function as patient is currently being diuresed. 01/10: No new issues. Continue vent weaning/diuresis as directed by pulmonary medicine.BMP demonstrates normal renal function and potassium. Sodium and Chloride consistent with prior labs. Will recheck BMP in 2 days. Placement continues to be an issue as patient has been denied at all facilities. Will reasses with CM on wednesday. 01/11: Emesis overnight. Do not suspect that she is obstructed as she had 2 BM reported. Will order Reglan prn, drop TF rate to goal of 30 cc/hr. Will continue to work on placement. 01/12: Per RN patient had reported that she was tired and did not want to persist in her current state of health. D/w patient Niraj at patient bedside and stated that I recommended the patient/family at least talk with hospice to get a better understanding of their care. He was agreeable. I spoke with Ms. Busby who will help set up referral for hospice service so that family can be educated and, if the patient chooses, can pursue this option. 01/13: Continue supportive care. Family discussing about hospice. Continue reinforcement and continue weaning as tolerated. Prognosis is guarded and poor. Patient is clinically stable to transfer to the next level of care has not required any escalation in management. Has been stable on the vent awake alert following commands. 01/14: [id number]. Considering abdominal distention tube feedings hold along with the fact that the patient vomited yesterday. Will obtain a CT abdomen and pelvis to further evaluate placement. Discussed with nursing staff. Awaiting to have a family conversation with the for goals of care discussion again. 01/15: Continue supportive care, tube feed was restarted yesterday and tolerated, will start on simethicone for gas control and management. Patient is clinically stable for all lower level of care and continued weaning from the ventilator to appropriate facility. Family still undecided about goals of care. We will also check labs intermittently. 01/16: Patient today went for Chest tube placement on the right side for recurrent pleural effusion, with the goal of evaluating to see if we can wean off the vent. She has remained on the vent and with some persistent anxiety. she continues to tolerate tube feed. Again poor prognosis discussed with family. 01/17: Status post chest tube, with output of approximately 1880 cc since placement. Will continue to work with pulmonology for vent weaning. 01/18: Only tolerated 1 hr of t piece trial yesterday per RT. Patient PaO2 50s on abg last night. Will continue to work with pulmonary medicine for vent weaning. abg, cbc, bmp, xr chest ordered for am. 01/19: On t piece trial this AM. labs reviewed. CXR reviewed and appears stable with no new changes. AB.42/47.8/112.3/30.9. Will follow pulmonary recommendations and plan to continue to wean off of vent. 01/20: Per CM, [facility] declined patient admission as there are T stated the patient was not amenable from the vent. Yesterday patient had tolerated T-piece trial for approximately 12 hours. Today patient only tolerated for 45 minutes. Had desatted and stated that she was in pain during today's trial. Output yesterday from chest tube 1000 cc. Today it is 100 cc thus far. Will obtain chest x-ray tomorrow. 01/21: XR chest demonstrate mild improvement in pulmonary edema. Chest tube OP: 400 cc on 01/20 and 450 cc thus far today. On CPAP trial this am. Hopefully patient can eventually be weaned off of vent. Placement continues to be a challenge as patient has been denied at all facilities thus far, working with CM who has been in frequent contact with [facility]. 01/22: Yesterday the patient had lasted approximately 10 hours on T-piece trial. Output from chest tube approximately 525 cc yesterday. Thus far today patient has had 400 cc. Will follow with pulmonology regarding overall plan for chest tube and weaning patient off ventilator. 01/23: chest tube output 838 cc. Follow pulmonology plan re: chest tube and vent weaning. Placement remains challenging. 01/24: Very fatigue on t - piece trial yesterday afternoon, placed on full MV support. Will re-attempt today poss. Patient will complete Vancomycin course for MRSA tx on Friday 01/26. She has been afebrile sine 01/02. Current barriers to placement are weaning patient off of ventilator and removing chest tube as thus far all facilities have declined the patient. 01/25: AM CXR shows worsening pulmonary edema. On t-piece trial this AM. Patient still continues to have output from chest tube. Will follow pulmonary recs today. 01/26: Difficulty breathing this AM. Chest tube OP approx 1L yesterday. Ordered Albumin due to hypotension noted this AM. Lasix 20 mg IV in addition to po lasix ordered for pulmonary edema. Labs ordered. 01/27: Antibiotics completed for MRSA bacteremia yesterday. Will start po bactrim for suppression per ID recommendation. Remains on MV support this AM. Blood pressure improved..actually hypertensive. Chest tube OP 50 cc yesterday. Metabolic profile noted, BUN slightly elevated but Cr in range. Can continue with lasix diuresis. Will likely need pleurx [facility] at some point in place of the chest tube. mass spectrometry specialist prognosis remains guarded to poor. 01/28: Continue current ATP to vapotherm, agree with possible pluerex catheter for intermittent drainage/ following review of xray will trial Bumex for diuresis. Poor prognosis. 01/29: Patient seen and examined doing well diuresing appropriately with a change to Bumex therapy. Discussed with finishing lab technician still with good volume output fluid overload will try to diurese over the weekend. We will check a chest x- ray in the morning to see improvement in the lungs and probably repeat on Wednesday. Anticipate discharge to SNF on Wednesday clinically she is improving likely will not need a Pleurx catheter on discharge. Prognosis remains guarded. 01/30: cxr shows unchanged, but clinically patient is stable, no increase oxygen demand, also negative fluid balance. Will continue bumex, monitor electrolytes and renal function, check cxr again on wednesday with anticipation to remove Chest tube soon and hopefully discharge to SNF on wednesday 01/31: Patient doing clinically well, will recheck chest xray in am, continue bumex, monitor electrolytes, wean off oxygen as tolerated. 02/01: Continue supportive care, will change Bumex to PO in anticipation for discharge, Await pulmonary input if chest tube can be clamped today for possible removal tomorrow. Neuro : Anxiety, chronic pain -Neurology consulted, appreciate recommendations -CT brain showed no acute events -EEG interpreted as abnormal record due to diffuse slowing noted throughout the recording, suggestive of encephalopathic process and/or drug effect, possibilities of postictal state cannot be totally excluded. Clinical correlation is in order -MRI brain not obtained-> patient has metal in her body -Repeat CT head with no acute findings -Reorientation as needed -Ammonia 42, B12 1823, TSH 1.5 -BuSpar, Seroquel, [place], gabapentin -prn xanax and Dilaudid Cardio: Acute Heart failure with reduced EF, h/o chronic heart block s/p PPM, HTN, CAD s/p PCI (2004), Moderate pulmonary HTN, cardiomyopathy -s/p vasopressor support with levophed -11/04 echocardiogram shows EF 30 to 35%, Moderate pulmonary HTN RVSP 49 -12/19 echo with 35-40% EF -Cardiology consulted, appreciate recommendations -Continue beta-charleen and statin therapy -Midodrine (titrate as needed) -Not on aspirin due to allergy -Blood pressure monitoring per protocol -As needed nitroglycerin Resp: Acute hypoxic respiratory failure secondary to bilateral pneumonia, recurrent bilateral pleural effusion s/p rt sided chest tube. Right pneumothorax (resolved). -COVID-19 PCR negative -Intubated on 11/06 with 6.00 ETT at 18 at the lip and changed over bougie on 11/11-7.50 ETT at 20 at the lip -See RT notes for titration -PSV as tolerated -Surgery consult for trach -Received trach/PEG on 11/26 -S/p bedside bronchoscopy on 11/11 complicated by pneumothorax -S/p chest tube placement for right pneumothorax and dislodgment by patient on 11/15 -ABG/CXR per CCM -VAP bundle -Right chest wall ultrasound showed pleural effusion s/p chest tube -12/11 US thoracentesis removed 1L fluid -12/29 US thoracentesis removed 1.4L fluid -01/06 thoracentesis planned -01/16 right-sided chest tube placed by IR -SPO2 monitoring GI: S/p GI bleed, duodenal ulcer, transaminitis -GI consulted, appreciate recommendations-signed off -Nutrition consult for tube feeding, currently on nepro TF 45 cc/hr, dropped to 30 cc/hr due to concerns for emesis. -BR: Senokot -s/p peg 11/26 -H2 charleen -Carafate -24-hour +428 ml -10/2021 Gastric occult positive -> EGD-> duodenal ulcer -12/14 occult stool positive - reglan prn. : Urinary retention (resolved), hyponatremia, hypochloremia -Strict intake and output -Trend BMP ID: Septic shock (POA-resolved), bilateral pneumonia, MRSA bacteremia/pna -Infectious disease consulted, appreciate recommendations -COVID-19 PCR negative -Presented with fevers, leukocytosis and hypotension -11/04 blood cultures positive with a group B strep bacteremia 12/19 however repeat blood cultures on the with no growth to date -Echo showed no evidence of vegetation -repeat echo showed EF 35-40 % with no vegetations -ABX therapy: IV vancomycin for 4 weeks (12/16-01/26) -Monitor WBC and fever curve -Bedside bronchoscopy for mucous plug on CXR 11/11 -f/u blood cultures Heme: Acute DVT in the right external iliac vein, common femoral vein, superior aspect of femoral vein, Acute microcytic anemia -Evidenced on bilateral upper lower extremity ultrasound -S/p 7 unit PRBC -Trend CBC -Transfuse for hemoglobin less than 7 -heparin gtt dc d/t anemia -S/p IVC filter Endo: h/o DM and hypothyroidism -Continue home Synthroid -SSI -Accu-Cheks every 6 -Avoid hypoglycemia History Interval history: Patient seen and examined, resting comfortable. Now off High flow and on ATC doing well. Still with good urine output and negative fluid balance with no worsening respiratory distress Hospitalist Physical - Physical exam Narrative exam: VITAL SIGNS: Reviewed. GENERAL: The patient appears normally developed, ATP to vapotherm, vital signs as documented. Frail appearing elderly woman. HEAD: No signs of head trauma. EYES: Pupils are equal. Extraocular motions intact. EARS: Hearing grossly intact. MOUTH: Oropharynx is normal. NECK: No adenopathy, no JVD. Trach to ATC CHEST: Bl rhonchi, right sided chest tube CARDIAC: Regular rate and rhythm. S1 and S2, without murmurs, gallops, or rubs. VASCULAR: No Edema. Peripheral pulses normal and equal in all extremities. ABDOMEN: Soft, non tender and mildly distended. No rebound or guarding, and no masses palpated. Bowel Sounds normal. MUSCULOSKELETAL: Good range of motion of all major joints. Extremities without clubbing, cyanosis or edema. NEUROLOGIC EXAM: Alert and oriented x 3. Holding her paper and writing, No focal sensory or strength deficits. PSYCHIATRIC: stable SKIN: detail exam as documented in skin assessment - Constitutional Vitals: Temp Pulse Resp BP Pulse Ox 97.4 F L 60 17 110/70 96 02/01/22 10:10 02/01/22 10:16 02/01/22 07:00 02/01/22 10:16 02/01/22 08:00 General appearance: Present: no acute distress HEART Score - HEART Score Troponin: Troponin T 0.078 ng/mL (0.00-0.029) H 01/15/22 Unknown Results - Labs CBC & Chem 7: 01/26/22 10:16 02/01/22 04:00 Labs: Laboratory Last Values WBC 12.7 K/mm3 (4.5-11.0) H 01/26/22 10:16 RBC 3.74 M/mm3 (3.65-5.03) 01/26/22 10:16 Hgb 9.9 gm/dl (10.1-14.3) L 01/26/22 10:16 Hct 31.1 % (30.3-42.9) 01/26/22 10:16 MCV 83 fl (79-97) 01/26/22 10:16 MCH 27 pg (28-32) L 01/26/22 10:16 MCHC 32 % (30-34) 01/26/22 10:16 RDW 18.3 % (13.2-15.2) H 01/26/22 10:16 Plt Count 269 K/mm3 (140-440) 01/26/22 10:16 Lymph % (Auto) 25.6 % (13.4-35.0) 01/26/22 10:16 [place] % (Auto) 4.5 % (0.0-7.3) 01/26/22 10:16 Eos % (Auto) 4.5 % (0.0-4.3) H 01/26/22 10:16 Baso % (Auto) 0.7 % (0.0-1.8) 01/26/22 10:16 Lymph # (Auto) 3.2 K/mm3 (1.2-5.4) 01/26/22 10:16 [place] # (Auto) 0.6 K/mm3 (0.0-0.8) 01/26/22 10:16 Eos # (Auto) 0.6 K/mm3 (0.0-0.4) H 01/26/22 10:16 Baso # (Auto) 0.1 K/mm3 (0.0-0.1) 01/26/22 10:16 Add Manual Diff Complete 01/19/22 04:50 Total Counted 100 01/15/22 14:36 Seg Neutrophils % 64.7 % (40.0-70.0) 01/26/22 10:16 Seg Neuts % (Manual) 82.0 % (40.0-70.0) H 01/15/22 14:36 Band Neutrophils % 0 % 01/15/22 14:36 Lymphocytes % (Manual) 11.0 % (13.4-35.0) L 01/15/22 14:36 Reactive Lymphs % (Man) 0 % 01/15/22 14:36 Monocytes % (Manual) 5.0 % (0.0-7.3) 01/15/22 14:36 Eosinophils % (Manual) 1.0 % (0.0-4.3) 01/15/22 14:36 Basophils % (Manual) 1.0 % (0.0-1.8) 01/15/22 14:36 Metamyelocytes % 0 % 01/15/22 14:36 Myelocytes % 0 % 01/15/22 14:36 Promyelocytes % 0 % 01/15/22 14:36 Blast Cells % 0 % 01/15/22 14:36 Nucleated RBC % Not Reportable 01/15/22 14:36 Seg Neutrophils # 8.2 K/mm3 (1.8-7.7) H 01/26/22 10:16 Seg Neutrophils # Man 8.8 K/mm3 (1.8-7.7) H 01/15/22 14:36 Band Neutrophils # 0.0 K/mm3 01/15/22 14:36 Lymphocytes # (Manual) 1.2 K/mm3 (1.2-5.4) 01/15/22 14:36 Abs React Lymphs (Man) 0.0 K/mm3 01/15/22 14:36 Monocytes # (Manual) 0.5 K/mm3 (0.0-0.8) 01/15/22 14:36 Eosinophils # (Manual) 0.1 K/mm3 (0.0-0.4) 01/15/22 14:36 Basophils # (Manual) 0.1 K/mm3 (0.0-0.1) 01/15/22 14:36 Metamyelocytes # 0.0 K/mm3 01/15/22 14:36 Myelocytes # 0.0 K/mm3 01/15/22 14:36 Promyelocytes # 0.0 K/mm3 01/15/22 14:36 Blast Cells # 0.0 K/mm3 01/15/22 14:36 WBC Morphology Not Reportable 01/15/22 14:36 Hypersegmented Neuts Not Reportable 01/15/22 14:36 Hyposegmented Neuts Not Reportable 01/15/22 14:36 Hypogranular Neuts Not Reportable 01/15/22 14:36 Smudge Cells Not Reportable 01/15/22 14:36 Toxic Granulation Not Reportable 01/15/22 14:36 Toxic Vacuolation Not Reportable 01/15/22 14:36 Dohle Bodies Not Reportable 01/15/22 14:36 Pelger-Huet Anomaly Not Reportable 01/15/22 14:36 Irina Rods Not Reportable 01/15/22 14:36 Platelet Estimate Consistent w auto 01/15/22 14:36 Clumped Platelets Not Reportable 01/15/22 14:36 Plt Clumps, EDTA Not Reportable 01/15/22 14:36 Large Platelets Not Reportable 01/15/22 14:36 Giant Platelets Not Reportable 01/15/22 14:36 Platelet Satelliting Not Reportable 01/15/22 14:36 Plt Morphology Comment Not Reportable 01/15/22 14:36 RBC Morphology Not Reportable 01/15/22 14:36 Dimorphic RBCs Not Reportable 01/15/22 14:36 Polychromasia Not Reportable 01/15/22 14:36 Hypochromasia Not Reportable 01/15/22 14:36 Poikilocytosis Not Reportable 01/15/22 14:36 Anisocytosis 1+ 01/15/22 14:36 Microcytosis Not Reportable 01/15/22 14:36 Macrocytosis Not Reportable 01/15/22 14:36 Spherocytes Not Reportable 01/15/22 14:36 Pappenheimer Bodies Not Reportable 01/15/22 14:36 Sickle Cells Not Reportable 01/15/22 14:36 Target Cells Not Reportable 01/15/22 14:36 Tear Drop Cells Not Reportable 01/15/22 14:36 Ovalocytes Not Reportable 01/15/22 14:36 Helmet Cells Not Reportable 01/15/22 14:36 [place] Bodies Not Reportable 01/15/22 14:36 [place] Rings Not Reportable 01/15/22 14:36 [place] Cells Not Reportable 01/15/22 14:36 Bite Cells Not Reportable 01/15/22 14:36 Crenated Cell Not Reportable 01/15/22 14:36 Elliptocytes Not Reportable 01/15/22 14:36 Acanthocytes (Spur) Not Reportable 01/15/22 14:36 Rouleaux Not Reportable 01/15/22 14:36 Hemoglobin C Crystals Not Reportable 01/15/22 14:36 Schistocytes Not Reportable 01/15/22 14:36 Malaria parasites Not Reportable 01/15/22 14:36 [place]frey Bodies Not Reportable 01/15/22 14:36 Hem Pathologist Commnt No 01/15/22 14:36 PT 16.9 Sec. (12.2-14.9) H 01/06/22 04:06 INR 1.23 (0.87-1.13) H 01/06/22 04:06 APTT 29.2 Sec. (24.2-36.6) 11/26/21 05:00 D-Dimer 2655.00 ng/mlDDU (0-234) H 11/11/21 04:28 ABG pH 7.488 pH Units (7.350-7.450) H 01/25/22 12:20 ABG pCO2 38.2 mm Hg 01/25/22 12:20 ABG pO2 58.9 mm Hg (80.0-90.0) L 01/25/22 12:20 ABG HCO3 28.3 mmol/L (20.0-26.0) H 01/25/22 12:20 ABG O2 Saturation 94.9 % (95.0-99.0) L 01/25/22 12:20 ABG O2 Content 11.4 (0.0-44) 01/25/22 12:20 ABG Base Excess 4.7 mmol/L (-2.0-3.0) H 01/25/22 12:20 ABG Hemoglobin 8.7 gm/dl (12.0-16.0) L 01/25/22 12:20 ABG Carboxyhemoglobin 1.8 % (0.0-5.0) 01/25/22 12:20 ABG Methemoglobin 0.5 % (0.0-1.5) 01/25/22 12: Oxyhemoglobin 92.7 % (95.0-99.0) L 01/25/22 12:20 FiO2 35 % 01/25/22 12:20 Sodium 136 mmol/L (137-145) L 02/01/22 04:00 Potassium 3.9 mmol/L (3.6-5.0) 02/01/22 04:00 Chloride 94.1 mmol/L (98-107) L 02/01/22 04:00 Carbon Dioxide 29 mmol/L (22-30) 02/01/22 04:00 Anion Gap 17 mmol/L 02/01/22 04:00 BUN 41 mg/dL (7-17) H 02/01/22 04:00 Creatinine 0.8 mg/dL (0.6-1.2) 02/01/22 04:00 Estimated GFR > 60 ml/min 02/01/22 04:00 BUN/Creatinine Ratio 51 % 02/01/22 04:00 Glucose 118 mg/dL (65-100) H 02/01/22 04:00 POC Glucose 111 mg/dL (70-105) H 01/31/22 05:12 Lactic Acid 3.70 mmol/L (0.7-2.0) H* 11/03/21 22:32 Calcium 9.0 mg/dL (8.4-10.2) 02/01/22 04:00 Phosphorus 4.00 mg/dL (2.5-4.5) 01/26/22 10:16 Magnesium 1.70 mg/dL (1.7-2.3) 01/26/22 10:16 Ferritin 52.6 ng/mL (10.0-200.0) 11/05/21 06:11 Total Bilirubin 0.50 mg/dL (0.1-1.2) 11/17/21 05:56 Direct Bilirubin < 0.2 mg/dL (0-0.2) 11/11/21 04:28 Indirect Bilirubin 0.1 mg/dL 11/11/21 04:28 AST 36 units/L (5-40) 11/17/21 05:56 ALT 47 units/L (7-56) 11/17/21 05:56 Alkaline Phosphatase 107 units/L (35-129) 11/17/21 05:56 Ammonia 42.0 umol/L (25-60) 11/10/21 14:08 Lactate Dehydrogenase 187 units/L (91-180) H 11/05/21 06:11 Troponin T 0.078 ng/mL (0.00-0.029) H 01/15/22 Unknown C-Reactive Protein 22.20 mg/dL (0.00-1.30) H 11/05/21 06:11 NT-Pro-B Natriuret Pep 7895 pg/mL (0-900) H 11/03/21 22:32 Total Protein 5.1 g/dL (6.3-8.2) L 11/17/21 05:56 Albumin 2.2 g/dL (3.9-5) L 11/17/21 05:56 Albumin/Globulin Ratio 0.8 % 11/17/21 05:56 Triglycerides 72 mg/dL (2-149) 01/15/22 21:07 Cholesterol 103 mg/dL (50-199) 01/15/22 21:07 LDL Cholesterol Direct 44 mg/dL (50-130) L 01/15/22 21:07 HDL Cholesterol 46 mg/dL (40-59) 01/15/22 21:07 Cholesterol/HDL Ratio 2.23 % 01/15/22 21:07 Vitamin B12 1823 pg/mL (211-911) H 11/10/21 14:08 TSH 1.510 mlU/mL (0.270-4.200) 11/10/21 14:08 Urine Color [place] (Yellow) 01/23/22 09:36 Urine Turbidity Turbid (Clear) 01/23/22 09:36 Urine pH 7.0 (5.0-7.0) 01/23/22 09:36 Ur Specific [place] 1.011 (1.003-1.030) 01/23/22 09:36 Urine Protein <15 mg/dl mg/dL (Negative) 01/23/22 09:36 Urine Glucose (UA) Neg mg/dL (Negative) 01/23/22 09:36 Urine Ketones Neg mg/dL (Negative) 01/23/22 09:36 Urine Blood Sm (Negative) 01/23/22 09:36 Urine Nitrite Neg (Negative) 01/23/22 09:36 Urine Bilirubin Neg (Negative) 01/23/22 09:36 Urine Urobilinogen 2.0 mg/dL (<2.0) 01/23/22 09:36 Ur Leukocyte Esterase Lg (Negative) 01/23/22 09:36 Urine WBC (Auto) 16.0 /HPF (0.0-6.0) H 01/23/22 09:36 Urine RBC (Auto) 32.0 /HPF (0.0-6.0) 01/23/22 09:36 U Epithel Cells (Auto) 1.0 /HPF (0-13.0) 01/23/22 09:36 Urine Bacteria (Auto) 4+ /HPF (Negative) 01/23/22 09:36 Urine Mucus Few /HPF 01/23/22 09:36 Urine Yeast (Budding) 3+ /HPF 01/23/22 09:36 Urine Sperm Few /HPF (DRIVER EXAMINER) 01/23/22 09:36 Fluid Type Pleural 01/06/22 13:40 Fluid Color Yellow 01/06/22 13:40 Fluid Appearance Hazy 01/06/22 13:40 Fluid WBC 273 /mm3 01/06/22 13:40 Fluid RBC 45 /mm3 01/06/22 13:40 Fluid Seg Neutrophils 47.0 % 01/06/22 13:40 Fluid Lymphocytes 22.0 % 01/06/22 13:40 Fluid Monocytes 10.0 % 01/06/22 13:40 Fluid Eosinophils 19.0 % 01/06/22 13:40 Fluid Basophils 2.0 % 01/06/22 13:40 Fluid Glucose 96 mg/dL (40-70) H 01/06/22 13:40 Fluid Total Protein < 3.0 (15.0-45.0) L 01/06/22 13:40 Fluid LDH 149 01/06/22 13:40 Vancomycin Trough 11.8 ug/mL (5.0-20.0) 01/22/22 10:14 Random Vancomycin 10.5 ug/mL (0-40.0) 01/04/22 05:00 Coronavirus (PCR) Negative (Negative) 11/10/21 08:30 Blood Type O POSITIVE 12/14/21 10:30 Antibody Screen Negative 12/14/21 10:30 Crossmatch See Detail 12/14/21 10:30 Gamble/IV: Voiding Method External Female Catheter Active Medications - Current Medications Current Medications: Generic Name Dose Route Start Last Admin Trade Name Freq PRN Reason Stop Dose Admin Acetaminophen 650 mg 12/14/21 04:12 01/26/22 03:19 Acetaminophen 325 Mg/10.15 Ml Oral Liqd Unit Dose FEEDTUBE 650 mg Q6H PRN Administration Non Cardiac Pain or Temp>100.5 Hydrocodone Bitart/Acetaminophen 1 each 11/21/21 10:00 02/01/22 08:02 Hydrocodone/Acetaminophen 10-325mg Tab FEEDTUBE 1 each TID YOSSI Administration Alprazolam 0.25 mg 01/22/22 03:00 01/31/22 21:05 Alprazolam 0.5 Mg Tab FEEDTUBE 0.25 mg Q8H PRN Administration Agitation Lipase/Protease/Amylase 1 each 11/08/21 11:09 Lipase 10,500/Protease 25,000/Amylase 43,750 (Units) Dr Lema FEEDTUBE PRN PRN For Clogged Feeding Tube Bumetanide 1 mg 01/28/22 10:00 02/01/22 10:17 Bumetanide 1 Mg/4 Ml Inj IV 02/02/22 09:59 1 mg DAILY YOSSI Administration Buspirone HCl 7.5 mg 12/30/21 10:00 02/01/22 10:19 Buspirone 5 Mg Tab FEEDTUBE 7.5 mg BID YOSSI Administration Dextrose 50 ml 01/16/22 14:00 Dextrose 50% In Water (25gm) 50 Ml Syringe IV Q30MIN PRN Hypoglycemia Protocol Docusate Sodium 100 mg 12/30/21 10:00 02/01/22 10:15 Docusate Sodium 100 Mg/10 Ml Oral Liqd FEEDTUBE 100 mg BID YOSSI Administration Gabapentin 100 mg 01/22/22 10:00 02/01/22 10:16 Gabapentin 500 Mg/10 Ml Oral Liqd FEEDTUBE 100 mg QDAY YOSSI Administration Hydrophilic Ointment 1 applic 11/06/21 04:02 Lip Therapy Vaseline TP Q2HR PRN Dry Lips Lansoprazole 30 mg 11/24/21 22:00 02/01/22 10:16 Lansoprazole 30 Mg Solutab FEEDTUBE 30 mg BID YOSSI Administration Levothyroxine Sodium 125 mcg 12/31/21 06:00 02/01/22 05:31 Levothyroxine 125 Mcg Tab FEEDTUBE 125 mcg DAILY@0600 YOSSI Administration Melatonin 5 mg 12/05/21 22:00 01/31/22 21:07 Melatonin 5 Mg Tab PO 5 mg QHS YOSSI Administration Metoclopramide HCl 10 mg 01/11/22 13:25 01/21/22 21:43 Metoclopramide 10 Mg/2 Ml Inj IV 10 mg Q6H PRN Administration Nausea And Vomiting Metoprolol Tartrate 6.25 mg 12/30/21 10:00 02/01/22 10:16 Metoprolol Tartrate 25 Mg Tab FEEDTUBE 6.25 mg BID YOSSI Administration Midodrine 10 mg 01/21/22 08:00 02/01/22 08:02 Midodrine 5 Mg Tab FEEDTUBE 10 mg TID@0800,1200,1600 YOSSI Administration Multi-Ingred Cream/Lotion/Oil/Oint 1 applic 11/06/21 04:02 Mineral Oil/Petrolatum, White Ophth Oint 3.5 Gm OU Q4HR PRN Dry Eye(s) Ondansetron HCl 4 mg 12/05/21 10:00 01/20/22 22:10 Ondansetron 4 Mg/2 Ml Inj IV 4 mg Q8H PRN Administration Nausea And Vomiting Polyethylene Glycol 17 gm 12/30/21 10:00 02/01/22 10:17 Polyethylene Glycol 3350 17 Gm Powder FEEDTUBE Not Given QDAY [facility] Pravastatin Sodium 20 mg 12/30/21 22:00 01/31/22 21:05 Pravastatin 20 Mg Tab FEEDTUBE 20 mg QHS YOSSI Administration Quetiapine Fumarate 25 mg 12/30/21 10:00 02/01/22 10:16 Quetiapine 25 Mg Tab FEEDTUBE 25 mg QAM YOSSI Administration Quetiapine Fumarate 50 mg 12/30/21 22:00 01/31/22 21:05 Quetiapine 25 Mg Tab FEEDTUBE 50 mg QHS YOSSI Administration Senna 17.6 mg 12/29/21 11:00 02/01/22 10:15 Sennosides Oral Liqd 8.8 Mg/5 Ml Oral Liqd FEEDTUBE 17.6 mg Q12HR YOSSI Administration Simethicone 80 mg 01/15/22 15:06 01/15/22 21:10 Simethicone 80 Mg Chew Tab PO 80 mg PC PRN Administration Gas pain Simple Syrup 15 ml 11/08/21 11:09 Simple Syrup 15 Ml FEEDTUBE PRN PRN Hypoglycemia Simple Syrup 30 ml 11/08/21 11:09 Simple Syrup 15 Ml FEEDTUBE PRN PRN Hypoglycemia Sodium Bicarbonate 325 mg 11/08/21 11:09 01/09/22 20:25 Sodium Bicarbonate 325 Mg Tab FEEDTUBE 325 mg PRN PRN Administration For Clogged Feeding Tube Sodium Chloride 10 ml 11/04/21 10:00 02/01/22 10:16 Sodium Chloride 0.9% 10 Ml Flush Syringe IV 10 ml BID YOSSI Administration Sodium Chloride 10 ml 11/04/21 02:03 01/09/22 06:35 Sodium Chloride 0.9% 10 Ml Flush Syringe IV 10 ml PRN PRN Administration LINE FLUSH Spironolactone 25 mg 12/30/21 10:00 02/01/22 10:16 Spironolactone 25 Mg Tab FEEDTUBE 25 mg QDAY YOSSI Administration Sucralfate 1 gm 12/30/21 12:00 02/01/22 05:32 Sucralfate 1 Gm/10 Ml Oral Liqd FEEDTUBE 1 gm Q6HR YOSSI Administration Trazodone HCl 50 mg 12/04/21 22:00 01/31/22 21:05 Trazodone 50 Mg Tab PO 50 mg QHS YOSSI Administration Trimethoprim/Sulfamethoxazole 160 mg 01/27/22 13:00 02/01/22 10:15 Sulfamethoxazole/Trimethoprim 200-40 Mg/5 Ml Oral Liqd 30 Ml PO 160 mg Q24HR YOSSI Administration Protocol Nutrition/Malnutrition Assess - Dietary Evaluation Nutrition/Malnutrition Findings: Nutrition Notes Start: 11/04/21 17:16 Freq: Status: Active Protocol: Document 01/26/22 14:39 YOVANI (Rec: 01/26/22 14:45 YOVANI [email or web address]) Nutrition Notes Initial or Follow up Reassessment Current Diagnosis Coronary Artery Disease, Diabetes,Hypertension,Heart Failure,Respiratory Failure Other Pertinent Diagnosis Bilat pleural effusion Current Diet TF - Vital AF 1.2 at 35ml/hr Labs/Tests Reviewed Pertinent Medications 25% Human albumin x 1 dose, Lasix x 1 dose Height 5 ft Weight 62.6 kg [place] Body Weight (kg) 45.45 BMI 26.9 Weight Status Overweight Subjective/Other Information Pt tolerating TF at goal rate. Pt remains on T-piece trials , however, was on vent support at time of visit today; chest tube still in place with substantial output. Percent of energy/protein needs met: 84% energy and pro Burn Absent Trauma Absent #2 Nutrition Diagnosis Inadequate enteral nutrition infusion #1 Nutrition Diagnosis Inadequate oral intake Diagnosis Progress(for reassessment Continues documentation) Is patient on ventilator? Yes Is Patient Ambulatory and/or Out of Bed No REE-([facility]-confined to bed) 1210.212 Calculation Used for Recommendations [facility] Additional Notes Pro needs 1.2-2g/k-125g/ day Fluid needs 1ml/kcal Nutrition Intervention Nutrition Support: Continue Vital AF 1.2 at 35ml/ hr with 50ml water flush q4h. Kcal 1,008 Protein (gm) 63 Carbohydrates (gm) 45 Fat (gm) 45 Fluid (mL) 681 Fiber (gm) 4 Add Supplement/Snack (indicate name/kcal Jaswant BID /protein ) Provides kCal: 190 Provides Protein (gm) 5 Goal #1 TF tolerance Goal #2 TF to meet at least 75% energy and pro needs Goal #3 Wound healing Follow-Up By: 02/02/22 Additional Comments F/U: stable TF, wt, vent status, wound healing/Jaswant administration
--- NOTE | 2022-02-01 14:05 | Progress Note ---
Subjective Date of service: 02/01/22 Principal diagnosis: Septic shock; AHRF; Anemia; Pneumonia; pleural effusion; HFrEF; Pulm HTN Interval history: Follow up fro acute hypoxemic resp failure s/p tracheostomy to MVS ; Septic and cardiogenic shock; severe anemia; Patient seen and examined. Vitals, labs, medications, chart and imaging reviewed. Discussed with respiratory and nursing care staff. ATP to Vapotherm 25L 35% Chest tube output 600ml yesterday in response to Bumetanide Objective Vital Signs - 12hr 02/01/22 02/01/22 02/01/22 03:00 03:10 04:00 Temperature 97.5 F L Pulse Rate 70 60 Pulse Rate [ From Monitor] Respiratory 16 22 Rate Blood Pressure 122/70 120/45 O2 Sat by Pulse 95 89 Oximetry O2 Sat by Pulse 100 Oximetry [ Assessment] 02/01/22 02/01/22 02/01/22 05:00 06:00 07:00 Temperature Pulse Rate 60 60 61 Pulse Rate [ From Monitor] Respiratory 24 14 17 Rate Blood Pressure 126/55 122/50 124/52 O2 Sat by Pulse 95 95 100 Oximetry O2 Sat by Pulse Oximetry [ Assessment] 02/01/22 02/01/22 02/01/22 08:00 08:22 09:00 Temperature Pulse Rate 65 60 64 Pulse Rate [ 60 From Monitor] Respiratory 19 12 Rate Blood Pressure 118/47 135/61 O2 Sat by Pulse 98 98 Oximetry O2 Sat by Pulse 96 Oximetry [ Assessment] 02/01/22 02/01/22 02/01/22 10:00 10:10 10:16 Temperature 97.4 F L Pulse Rate 62 60 Pulse Rate [ From Monitor] Respiratory 13 Rate Blood Pressure 110/70 110/70 O2 Sat by Pulse 97 Oximetry O2 Sat by Pulse Oximetry [ Assessment] 02/01/22 02/01/22 02/01/22 11:00 12:00 13:00 Temperature 97.2 F L Pulse Rate 60 65 60 Pulse Rate [ From Monitor] Respiratory 15 21 21 Rate Blood Pressure 128/50 128/53 117/57 O2 Sat by Pulse 98 98 97 Oximetry O2 Sat by Pulse Oximetry [ Assessment] 02/01/22 14:00 Temperature Pulse Rate 63 Pulse Rate [ From Monitor] Respiratory 18 Rate Blood Pressure 117/57 O2 Sat by Pulse 97 Oximetry O2 Sat by Pulse Oximetry [ Assessment] Constitutional: no acute distress, alert, other (trach to full support) Eyes: non-icteric ENT: oropharynx moist, other (+ Midline tracheostomy with minimal secretions) Neck: supple, no lymphadenopathy, no JVD Effort: normal, mildly labored Ascultation: Bilateral: diminished breath sounds, rhonchi, other (Right chest tube) Percussion: Right: not dull, Left: dull (bases) Cardiovascular: regular rate and rhythm, other (S1,S2) Gastrointestinal: normoactive bowel sounds, soft, non-tender, non-distended (protuberant) Integumentary: normal Extremities: no cyanosis, pink and warm, pulses normal, edema (upper etremities), anasarca Neurologic: non-focal exam (grossly), pupils equal and round, CN II-XII normal Psychiatric: affect normal CBC and BMP: 01/26/22 10:16 02/01/22 04:00 ABG, PT/INR, D-dimer: ABG ABG pH 7.488 pH Units (7.350-7.450) H 01/25/22 12:20 ABG pCO2 38.2 mm Hg 01/25/22 12:20 ABG pO2 58.9 mm Hg (80.0-90.0) L 01/25/22 12:20 ABG O2 Saturation 94.9 % (95.0-99.0) L 01/25/22 12:20 PT/INR, D-dimer PT 16.9 Sec. (12.2-14.9) H 01/06/22 04:06 INR 1.23 (0.87-1.13) H 01/06/22 04:06 D-Dimer 2655.00 ng/mlDDU (0-234) H 11/11/21 04:28 Abnormal lab findings: Abnormal Labs 11/03/21 11/03/21 11/03/21 22:32 22:32 22:32 WBC 29.3 H RBC 2.93 L Hgb 6.1 L Hct 21.9 L MCV 75 L MCH 21 L MCHC 28 L RDW 19.7 H Plt Count Eos % (Auto) Eos # (Auto) Seg Neuts % (Manual) 97.0 H Lymphocytes % (Manual) 3.0 L Seg Neutrophils # Seg Neutrophils # Man 28.4 H Lymphocytes # (Manual) 0.9 L Monocytes # (Manual) PT 18.6 H INR 1.40 H D-Dimer ABG pH ABG pO2 ABG HCO3 ABG O2 Saturation ABG Base Excess ABG Hemoglobin Oxyhemoglobin Sodium Potassium Chloride Carbon Dioxide 20 L BUN 33 H Creatinine Glucose 119 H POC Glucose Lactic Acid Calcium 8.3 L Phosphorus Magnesium AST ALT Alkaline Phosphatase Lactate Dehydrogenase Troponin T 0.035 H C-Reactive Protein NT-Pro-B Natriuret Pep Total Protein Albumin LDL Cholesterol Direct 34 L Vitamin B12 Urine WBC (Auto) Fluid Glucose Fluid Total Protein Vancomycin Trough Crossmatch 11/03/21 11/03/21 11/03/21 22:32 22:32 23:57 WBC RBC Hgb Hct MCV MCH MCHC RDW Plt Count Eos % (Auto) Eos # (Auto) Seg Neuts % (Manual) Lymphocytes % (Manual) Seg Neutrophils # Seg Neutrophils # Man Lymphocytes # (Manual) Monocytes # (Manual) PT INR D-Dimer ABG pH ABG pO2 ABG HCO3 ABG O2 Saturation ABG Base Excess ABG Hemoglobin Oxyhemoglobin Sodium Potassium Chloride Carbon Dioxide BUN Creatinine Glucose POC Glucose Lactic Acid 3.70 H* Calcium Phosphorus Magnesium AST ALT Alkaline Phosphatase 139 H Lactate Dehydrogenase Troponin T C-Reactive Protein NT-Pro-B Natriuret Pep 7895 H Total Protein Albumin 3.5 L LDL Cholesterol Direct Vitamin B12 Urine WBC (Auto) Fluid Glucose Fluid Total Protein Vancomycin Trough Crossmatch See Detail 11/04/21 11/04/21 11/05/21 00:59 13:58 00:51 WBC 27.9 H RBC 3.28 L Hgb 7.3 L Hct 25.5 L MCV 78 L MCH 22 L MCHC 29 L RDW 19.1 H Plt Count Eos % (Auto) Eos # (Auto) Seg Neuts % (Manual) 96.0 H Lymphocytes % (Manual) 2.0 L Seg Neutrophils # Seg Neutrophils # Man 26.8 H Lymphocytes # (Manual) 0.6 L Monocytes # (Manual) PT INR D-Dimer ABG pH ABG pO2 ABG HCO3 ABG O2 Saturation ABG Base Excess ABG Hemoglobin Oxyhemoglobin Sodium Potassium Chloride Carbon Dioxide BUN Creatinine Glucose POC Glucose Lactic Acid Calcium Phosphorus Magnesium AST ALT Alkaline Phosphatase Lactate Dehydrogenase Troponin T 0.051 H D 0.032 H D C-Reactive Protein NT-Pro-B Natriuret Pep Total Protein Albumin LDL Cholesterol Direct Vitamin B12 Urine WBC (Auto) Fluid Glucose Fluid Total Protein Vancomycin Trough Crossmatch 11/05/21 11/05/21 11/05/21 06:11 06:11 06:11 WBC 31.8 H RBC 3.57 L Hgb 8.0 L Hct 27.7 L MCV 78 L MCH 22 L MCHC 29 L RDW 19.2 H Plt Count Eos % (Auto) Eos # (Auto) Seg Neuts % (Manual) 91.0 H Lymphocytes % (Manual) 4.5 L Seg Neutrophils # Seg Neutrophils # Man 28.9 H Lymphocytes # (Manual) Monocytes # (Manual) 1.1 H PT INR D-Dimer 1494.53 H ABG pH ABG pO2 ABG HCO3 ABG O2 Saturation ABG Base Excess ABG Hemoglobin Oxyhemoglobin Sodium Potassium Chloride Carbon Dioxide 19 L BUN 42 H Creatinine Glucose 115 H POC Glucose Lactic Acid Calcium Phosphorus Magnesium AST 43 H ALT Alkaline Phosphatase Lactate Dehydrogenase 187 H Troponin T C-Reactive Protein 22.20 H NT-Pro-B Natriuret Pep Total Protein 6.0 L Albumin 3.2 L LDL Cholesterol Direct Vitamin B12 Urine WBC (Auto) Fluid Glucose Fluid Total Protein Vancomycin Trough Crossmatch 11/05/21 11/05/21 11/06/21 06:11 12:15 00:30 WBC RBC Hgb Hct MCV MCH MCHC RDW Plt Count Eos % (Auto) Eos # (Auto) Seg Neuts % (Manual) Lymphocytes % (Manual) Seg Neutrophils # Seg Neutrophils # Man Lymphocytes # (Manual) Monocytes # (Manual) PT INR D-Dimer ABG pH ABG pO2 ABG HCO3 ABG O2 Saturation ABG Base Excess ABG Hemoglobin Oxyhemoglobin Sodium Potassium Chloride Carbon Dioxide BUN Creatinine Glucose POC Glucose 113 H 69 L Lactic Acid Calcium Phosphorus Magnesium AST ALT Alkaline Phosphatase Lactate Dehydrogenase Troponin T 0.033 H C-Reactive Protein NT-Pro-B Natriuret Pep Total Protein Albumin LDL Cholesterol Direct Vitamin B12 Urine WBC (Auto) Fluid Glucose Fluid Total Protein Vancomycin Trough Crossmatch 11/06/21 11/06/21 11/06/21 05:50 15:50 15:50 WBC 25.5 H RBC 3.62 L Hgb 8.0 L Hct 27.5 L MCV 76 L MCH 22 L MCHC 29 L RDW 19.6 H Plt Count Eos % (Auto) Eos # (Auto) Seg Neuts % (Manual) 92.0 H Lymphocytes % (Manual) 5.0 L Seg Neutrophils # Seg Neutrophils # Man 23.5 H Lymphocytes # (Manual) Monocytes # (Manual) PT INR D-Dimer ABG pH 7.305 L ABG pO2 ABG HCO3 15.8 L ABG O2 Saturation ABG Base Excess -9.6 L ABG Hemoglobin 8.6 L Oxyhemoglobin 94.6 L Sodium Potassium Chloride 113.9 H Carbon Dioxide 17 L BUN 56 H Creatinine Glucose 114 H POC Glucose Lactic Acid Calcium 7.9 L Phosphorus Magnesium AST 1410 H ALT 934 H Alkaline Phosphatase 142 H Lactate Dehydrogenase Troponin T C-Reactive Protein NT-Pro-B Natriuret Pep Total Protein 5.0 L Albumin 2.6 L LDL Cholesterol Direct Vitamin B12 Urine WBC (Auto) Fluid Glucose Fluid Total Protein Vancomycin Trough Crossmatch 11/07/21 11/07/21 11/07/21 03:30 04:50 08:07 WBC RBC Hgb Hct MCV MCH MCHC RDW Plt Count Eos % (Auto) Eos # (Auto) Seg Neuts % (Manual) Lymphocytes % (Manual) Seg Neutrophils # Seg Neutrophils # Man Lymphocytes # (Manual) Monocytes # (Manual) PT INR D-Dimer ABG pH ABG pO2 296.9 H ABG HCO3 18.1 L ABG O2 Saturation 99.5 H ABG Base Excess -5.9 L ABG Hemoglobin 7.6 L Oxyhemoglobin Sodium Potassium Chloride Carbon Dioxide BUN Creatinine Glucose POC Glucose 106 H 108 H Lactic Acid Calcium Phosphorus Magnesium AST ALT Alkaline Phosphatase Lactate Dehydrogenase Troponin T C-Reactive Protein NT-Pro-B Natriuret Pep Total Protein Albumin LDL Cholesterol Direct Vitamin B12 Urine WBC (Auto) Fluid Glucose Fluid Total Protein Vancomycin Trough Crossmatch 11/08/21 11/08/21 11/08/21 03:10 18:05 23:43 WBC RBC Hgb Hct MCV MCH MCHC RDW Plt Count Eos % (Auto) Eos # (Auto) Seg Neuts % (Manual) Lymphocytes % (Manual) Seg Neutrophils # Seg Neutrophils # Man Lymphocytes # (Manual) Monocytes # (Manual) PT INR D-Dimer ABG pH ABG pO2 127.4 H ABG HCO3 ABG O2 Saturation ABG Base Excess -3.4 L ABG Hemoglobin 7.4 L Oxyhemoglobin Sodium Potassium Chloride Carbon Dioxide BUN Creatinine Glucose POC Glucose 113 H 141 H Lactic Acid Calcium Phosphorus Magnesium AST ALT Alkaline Phosphatase Lactate Dehydrogenase Troponin T C-Reactive Protein NT-Pro-B Natriuret Pep Total Protein Albumin LDL Cholesterol Direct Vitamin B12 Urine WBC (Auto) Fluid Glucose Fluid Total Protein Vancomycin Trough Crossmatch 11/08/21 11/08/21 11/09/21 Unknown Unknown 02:00 WBC 14.5 H RBC 3.35 L Hgb 7.5 L 8.1 L Hct 25.4 L 27.6 L MCV 76 L 76 L MCH 23 L 22 L MCHC RDW 19.9 H 19.9 H Plt Count Eos % (Auto) Eos # (Auto) Seg Neuts % (Manual) Lymphocytes % (Manual) Seg Neutrophils # Seg Neutrophils # Man Lymphocytes # (Manual) Monocytes # (Manual) PT INR D-Dimer ABG pH ABG pO2 ABG HCO3 ABG O2 Saturation ABG Base Excess ABG Hemoglobin Oxyhemoglobin Sodium 154 H D Potassium 3.3 L Chloride 120.7 H Carbon Dioxide 20 L BUN 38 H Creatinine Glucose POC Glucose Lactic Acid Calcium 8.3 L Phosphorus Magnesium AST ALT Alkaline Phosphatase Lactate Dehydrogenase Troponin T C-Reactive Protein NT-Pro-B Natriuret Pep Total Protein Albumin LDL Cholesterol Direct Vitamin B12 Urine WBC (Auto) Fluid Glucose Fluid Total Protein Vancomycin Trough Crossmatch 11/09/21 11/09/21 11/09/21 02:00 02:31 05:12 WBC RBC Hgb Hct MCV MCH MCHC RDW Plt Count Eos % (Auto) Eos # (Auto) Seg Neuts % (Manual) Lymphocytes % (Manual) Seg Neutrophils # Seg Neutrophils # Man Lymphocytes # (Manual) Monocytes # (Manual) PT INR D-Dimer ABG pH 7.479 H ABG pO2 121.3 H ABG HCO3 ABG O2 Saturation ABG Base Excess ABG Hemoglobin 7.3 L Oxyhemoglobin Sodium Potassium Chloride 112.5 H Carbon Dioxide BUN 33 H Creatinine Glucose 161 H POC Glucose 135 H Lactic Acid Calcium Phosphorus Magnesium AST 251 H ALT 481 H Alkaline Phosphatase Lactate Dehydrogenase Troponin T C-Reactive Protein NT-Pro-B Natriuret Pep Total Protein 5.0 L Albumin 2.8 L LDL Cholesterol Direct Vitamin B12 Urine WBC (Auto) Fluid Glucose Fluid Total Protein Vancomycin Trough Crossmatch 11/09/21 11/09/21 11/09/21 11:33 16:32 23:28 WBC RBC Hgb Hct MCV MCH MCHC RDW Plt Count Eos % (Auto) Eos # (Auto) Seg Neuts % (Manual) Lymphocytes % (Manual) Seg Neutrophils # Seg Neutrophils # Man Lymphocytes # (Manual) Monocytes # (Manual) PT INR D-Dimer ABG pH ABG pO2 ABG HCO3 ABG O2 Saturation ABG Base Excess ABG Hemoglobin Oxyhemoglobin Sodium Potassium Chloride Carbon Dioxide BUN Creatinine Glucose POC Glucose 132 H 133 H 143 H Lactic Acid Calcium Phosphorus Magnesium AST ALT Alkaline Phosphatase Lactate Dehydrogenase Troponin T C-Reactive Protein NT-Pro-B Natriuret Pep Total Protein Albumin LDL Cholesterol Direct Vitamin B12 Urine WBC (Auto) Fluid Glucose Fluid Total Protein Vancomycin Trough Crossmatch 11/10/21 11/10/21 11/10/21 04:00 04:00 05:35 WBC 16.0 H RBC 3.61 L Hgb 8.0 L Hct 27.1 L MCV 75 L MCH 22 L MCHC RDW 20.4 H Plt Count Eos % (Auto) Eos # (Auto) Seg Neuts % (Manual) Lymphocytes % (Manual) Seg Neutrophils # Seg Neutrophils # Man Lymphocytes # (Manual) Monocytes # (Manual) PT INR D-Dimer ABG pH ABG pO2 ABG HCO3 ABG O2 Saturation ABG Base Excess ABG Hemoglobin Oxyhemoglobin Sodium 149 H Potassium Chloride 114.1 H Carbon Dioxide BUN 31 H Creatinine Glucose 148 H POC Glucose 132 H Lactic Acid Calcium 8.2 L Phosphorus Magnesium AST ALT Alkaline Phosphatase Lactate Dehydrogenase Troponin T C-Reactive Protein NT-Pro-B Natriuret Pep Total Protein Albumin LDL Cholesterol Direct Vitamin B12 Urine WBC (Auto) Fluid Glucose Fluid Total Protein Vancomycin Trough Crossmatch 11/10/21 11/10/21 11/10/21 11:31 14:08 15:35 WBC RBC Hgb Hct MCV MCH MCHC RDW Plt Count Eos % (Auto) Eos # (Auto) Seg Neuts % (Manual) Lymphocytes % (Manual) Seg Neutrophils # Seg Neutrophils # Man Lymphocytes # (Manual) Monocytes # (Manual) PT INR D-Dimer ABG pH ABG pO2 126.6 H ABG HCO3 ABG O2 Saturation ABG Base Excess ABG Hemoglobin 7.4 L Oxyhemoglobin Sodium Potassium Chloride Carbon Dioxide BUN Creatinine Glucose POC Glucose 147 H Lactic Acid Calcium Phosphorus Magnesium AST ALT Alkaline Phosphatase Lactate Dehydrogenase Troponin T C-Reactive Protein NT-Pro-B Natriuret Pep Total Protein Albumin LDL Cholesterol Direct Vitamin B12 1823 H Urine WBC (Auto) Fluid Glucose Fluid Total Protein Vancomycin Trough Crossmatch 11/10/21 11/11/21 11/11/21 17:53 00:55 04:28 WBC RBC Hgb Hct MCV MCH MCHC RDW Plt Count Eos % (Auto) Eos # (Auto) Seg Neuts % (Manual) Lymphocytes % (Manual) Seg Neutrophils # Seg Neutrophils # Man Lymphocytes # (Manual) Monocytes # (Manual) PT INR D-Dimer ABG pH ABG pO2 ABG HCO3 ABG O2 Saturation ABG Base Excess ABG Hemoglobin Oxyhemoglobin Sodium 149 H Potassium Chloride 112.2 H Carbon Dioxide BUN 34 H Creatinine Glucose 148 H POC Glucose 140 H 145 H Lactic Acid Calcium 7.9 L Phosphorus Magnesium AST 53 H ALT 203 H Alkaline Phosphatase Lactate Dehydrogenase Troponin T C-Reactive Protein NT-Pro-B Natriuret Pep Total Protein 4.9 L Albumin 2.6 L LDL Cholesterol Direct Vitamin B12 Urine WBC (Auto) Fluid Glucose Fluid Total Protein Vancomycin Trough Crossmatch 11/11/21 11/11/21 11/11/21 04:28 04:28 05:28 WBC 20.9 H RBC 3.47 L Hgb 7.5 L Hct 26.0 L MCV 75 L MCH 22 L MCHC 29 L RDW 21.6 H Plt Count 132 L Eos % (Auto) Eos # (Auto) Seg Neuts % (Manual) Lymphocytes % (Manual) Seg Neutrophils # Seg Neutrophils # Man Lymphocytes # (Manual) Monocytes # (Manual) PT INR D-Dimer 2655.00 H ABG pH ABG pO2 ABG HCO3 ABG O2 Saturation ABG Base Excess ABG Hemoglobin Oxyhemoglobin Sodium Potassium Chloride Carbon Dioxide BUN Creatinine Glucose POC Glucose 154 H Lactic Acid Calcium Phosphorus Magnesium AST ALT Alkaline Phosphatase Lactate Dehydrogenase Troponin T C-Reactive Protein NT-Pro-B Natriuret Pep Total Protein Albumin LDL Cholesterol Direct Vitamin B12 Urine WBC (Auto) Fluid Glucose Fluid Total Protein Vancomycin Trough Crossmatch 11/11/21 11/11/21 11/12/21 12:38 18:13 00:14 WBC RBC Hgb Hct MCV MCH MCHC RDW Plt Count Eos % (Auto) Eos # (Auto) Seg Neuts % (Manual) Lymphocytes % (Manual) Seg Neutrophils # Seg Neutrophils # Man Lymphocytes # (Manual) Monocytes # (Manual) PT INR D-Dimer ABG pH ABG pO2 ABG HCO3 ABG O2 Saturation ABG Base Excess ABG Hemoglobin Oxyhemoglobin Sodium Potassium Chloride Carbon Dioxide BUN Creatinine Glucose POC Glucose 137 H 108 H 137 H Lactic Acid Calcium Phosphorus Magnesium AST ALT Alkaline Phosphatase Lactate Dehydrogenase Troponin T C-Reactive Protein NT-Pro-B Natriuret Pep Total Protein Albumin LDL Cholesterol Direct Vitamin B12 Urine WBC (Auto) Fluid Glucose Fluid Total Protein Vancomycin Trough Crossmatch 11/12/21 11/12/21 11/12/21 05:40 06:24 11:12 WBC RBC Hgb Hct MCV MCH MCHC RDW Plt Count Eos % (Auto) Eos # (Auto) Seg Neuts % (Manual) Lymphocytes % (Manual) Seg Neutrophils # Seg Neutrophils # Man Lymphocytes # (Manual) Monocytes # (Manual) PT INR D-Dimer ABG pH 7.586 H ABG pO2 150.6 H ABG HCO3 27.2 H ABG O2 Saturation 99.1 H ABG Base Excess 5.2 H ABG Hemoglobin 7.5 L Oxyhemoglobin Sodium Potassium Chloride Carbon Dioxide BUN Creatinine Glucose POC Glucose 132 H 140 H Lactic Acid Calcium Phosphorus Magnesium AST ALT Alkaline Phosphatase Lactate Dehydrogenase Troponin T C-Reactive Protein NT-Pro-B Natriuret Pep Total Protein Albumin LDL Cholesterol Direct Vitamin B12 Urine WBC (Auto) Fluid Glucose Fluid Total Protein Vancomycin Trough Crossmatch 11/12/21 11/12/21 11/12/21 14:50 14:50 17:13 WBC 19.8 H RBC 3.27 L Hgb 7.1 L Hct 24.5 L MCV 75 L MCH 22 L MCHC 29 L RDW 22.3 H Plt Count Eos % (Auto) Eos # (Auto) Seg Neuts % (Manual) Lymphocytes % (Manual) Seg Neutrophils # Seg Neutrophils # Man Lymphocytes # (Manual) Monocytes # (Manual) PT INR D-Dimer ABG pH ABG pO2 ABG HCO3 ABG O2 Saturation ABG Base Excess ABG Hemoglobin Oxyhemoglobin Sodium 150 H Potassium 3.3 L Chloride 112.0 H Carbon Dioxide BUN 40 H Creatinine Glucose 151 H POC Glucose 121 H Lactic Acid Calcium 7.4 L Phosphorus 1.70 L Magnesium 1.40 L AST ALT Alkaline Phosphatase Lactate Dehydrogenase Troponin T C-Reactive Protein NT-Pro-B Natriuret Pep Total Protein Albumin LDL Cholesterol Direct Vitamin B12 Urine WBC (Auto) Fluid Glucose Fluid Total Protein Vancomycin Trough Crossmatch 11/12/21 11/13/21 11/13/21 23:19 05:34 06:30 WBC RBC Hgb Hct MCV MCH MCHC RDW Plt Count Eos % (Auto) Eos # (Auto) Seg Neuts % (Manual) Lymphocytes % (Manual) Seg Neutrophils # Seg Neutrophils # Man Lymphocytes # (Manual) Monocytes # (Manual) PT INR D-Dimer ABG pH ABG pO2 ABG HCO3 ABG O2 Saturation ABG Base Excess ABG Hemoglobin Oxyhemoglobin Sodium 149 H Potassium Chloride 60.0 L Carbon Dioxide BUN 40 H Creatinine Glucose 146 H POC Glucose 113 H 132 H Lactic Acid Calcium 7.3 L Phosphorus Magnesium 2.40 H AST ALT 72 H Alkaline Phosphatase Lactate Dehydrogenase Troponin T C-Reactive Protein NT-Pro-B Natriuret Pep Total Protein 5.2 L Albumin 2.2 L LDL Cholesterol Direct Vitamin B12 Urine WBC (Auto) Fluid Glucose Fluid Total Protein Vancomycin Trough Crossmatch 11/13/21 11/13/21 11/13/21 06:30 08:30 11:19 WBC 21.2 H RBC 3.12 L Hgb 6.8 L Hct 23.2 L MCV 74 L MCH 22 L MCHC 29 L RDW 22.2 H Plt Count 135 L Eos % (Auto) Eos # (Auto) Seg Neuts % (Manual) Lymphocytes % (Manual) Seg Neutrophils # Seg Neutrophils # Man Lymphocytes # (Manual) Monocytes # (Manual) PT INR D-Dimer ABG pH ABG pO2 ABG HCO3 ABG O2 Saturation ABG Base Excess ABG Hemoglobin Oxyhemoglobin Sodium Potassium Chloride Carbon Dioxide BUN Creatinine Glucose POC Glucose 136 H Lactic Acid Calcium Phosphorus Magnesium AST ALT Alkaline Phosphatase Lactate Dehydrogenase Troponin T C-Reactive Protein NT-Pro-B Natriuret Pep Total Protein Albumin LDL Cholesterol Direct Vitamin B12 Urine WBC (Auto) Fluid Glucose Fluid Total Protein Vancomycin Trough Crossmatch See Detail 11/13/21 11/14/21 11/14/21 18:21 00:01 04:46 WBC 20.0 H RBC 3.41 L Hgb 7.9 L Hct 26.8 L MCV MCH 23 L MCHC 29 L RDW 24.0 H Plt Count Eos % (Auto) Eos # (Auto) Seg Neuts % (Manual) Lymphocytes % (Manual) Seg Neutrophils # Seg Neutrophils # Man Lymphocytes # (Manual) Monocytes # (Manual) PT INR D-Dimer ABG pH ABG pO2 ABG HCO3 ABG O2 Saturation ABG Base Excess ABG Hemoglobin Oxyhemoglobin Sodium Potassium Chloride Carbon Dioxide BUN Creatinine Glucose POC Glucose 149 H 141 H Lactic Acid Calcium Phosphorus Magnesium AST ALT Alkaline Phosphatase Lactate Dehydrogenase Troponin T C-Reactive Protein NT-Pro-B Natriuret Pep Total Protein Albumin LDL Cholesterol Direct Vitamin B12 Urine WBC (Auto) Fluid Glucose Fluid Total Protein Vancomycin Trough Crossmatch 11/14/21 11/14/21 11/14/21 04:46 05:10 11:10 WBC RBC Hgb Hct MCV MCH MCHC RDW Plt Count Eos % (Auto) Eos # (Auto) Seg Neuts % (Manual) Lymphocytes % (Manual) Seg Neutrophils # Seg Neutrophils # Man Lymphocytes # (Manual) Monocytes # (Manual) PT INR D-Dimer ABG pH ABG pO2 ABG HCO3 ABG O2 Saturation ABG Base Excess ABG Hemoglobin Oxyhemoglobin Sodium 148 H Potassium Chloride 113.1 H Carbon Dioxide BUN 43 H Creatinine Glucose 140 H POC Glucose 132 H 133 H Lactic Acid Calcium 7.5 L Phosphorus Magnesium AST ALT Alkaline Phosphatase Lactate Dehydrogenase Troponin T C-Reactive Protein NT-Pro-B Natriuret Pep Total Protein Albumin LDL Cholesterol Direct Vitamin B12 Urine WBC (Auto) Fluid Glucose Fluid Total Protein Vancomycin Trough Crossmatch 11/14/21 11/14/21 11/14/21 16:14 17:48 23:23 WBC RBC Hgb Hct MCV MCH MCHC RDW Plt Count Eos % (Auto) Eos # (Auto) Seg Neuts % (Manual) Lymphocytes % (Manual) Seg Neutrophils # Seg Neutrophils # Man Lymphocytes # (Manual) Monocytes # (Manual) PT INR D-Dimer ABG pH ABG pO2 ABG HCO3 28.0 H ABG O2 Saturation ABG Base Excess 3.1 H ABG Hemoglobin 5.8 L Oxyhemoglobin 94.8 L Sodium Potassium Chloride Carbon Dioxide BUN Creatinine Glucose POC Glucose 130 H 136 H Lactic Acid Calcium Phosphorus Magnesium AST ALT Alkaline Phosphatase Lactate Dehydrogenase Troponin T C-Reactive Protein NT-Pro-B Natriuret Pep Total Protein Albumin LDL Cholesterol Direct Vitamin B12 Urine WBC (Auto) Fluid Glucose Fluid Total Protein Vancomycin Trough Crossmatch 11/15/21 11/15/21 11/15/21 05:20 05:50 05:50 WBC 19.9 H RBC 3.50 L Hgb 8.2 L Hct 27.9 L MCV MCH 23 L MCHC 29 L RDW 24.9 H Plt Count Eos % (Auto) Eos # (Auto) Seg Neuts % (Manual) Lymphocytes % (Manual) Seg Neutrophils # Seg Neutrophils # Man Lymphocytes # (Manual) Monocytes # (Manual) PT INR D-Dimer ABG pH ABG pO2 ABG HCO3 ABG O2 Saturation ABG Base Excess ABG Hemoglobin Oxyhemoglobin Sodium 149 H Potassium Chloride 112.0 H Carbon Dioxide BUN 48 H Creatinine Glucose 152 H POC Glucose 137 H Lactic Acid Calcium 7.9 L Phosphorus Magnesium AST ALT Alkaline Phosphatase Lactate Dehydrogenase Troponin T C-Reactive Protein NT-Pro-B Natriuret Pep Total Protein Albumin LDL Cholesterol Direct Vitamin B12 Urine WBC (Auto) Fluid Glucose Fluid Total Protein Vancomycin Trough Crossmatch 11/15/21 11/15/21 11/15/21 12:12 17:07 23:24 WBC RBC Hgb Hct MCV MCH MCHC RDW Plt Count Eos % (Auto) Eos # (Auto) Seg Neuts % (Manual) Lymphocytes % (Manual) Seg Neutrophils # Seg Neutrophils # Man Lymphocytes # (Manual) Monocytes # (Manual) PT INR D-Dimer ABG pH ABG pO2 ABG HCO3 ABG O2 Saturation ABG Base Excess ABG Hemoglobin Oxyhemoglobin Sodium Potassium Chloride Carbon Dioxide BUN Creatinine Glucose POC Glucose 114 H 135 H 123 H Lactic Acid Calcium Phosphorus Magnesium AST ALT Alkaline Phosphatase Lactate Dehydrogenase Troponin T C-Reactive Protein NT-Pro-B Natriuret Pep Total Protein Albumin LDL Cholesterol Direct Vitamin B12 Urine WBC (Auto) Fluid Glucose Fluid Total Protein Vancomycin Trough Crossmatch 11/16/21 11/16/21 11/16/21 05:21 10:00 10:00 WBC 21.7 H RBC 2.57 L Hgb 6.0 L Hct 20.2 L D MCV MCH 24 L MCHC RDW 26.3 H Plt Count Eos % (Auto) Eos # (Auto) Seg Neuts % (Manual) Lymphocytes % (Manual) Seg Neutrophils # Seg Neutrophils # Man Lymphocytes # (Manual) Monocytes # (Manual) PT INR D-Dimer ABG pH ABG pO2 ABG HCO3 ABG O2 Saturation ABG Base Excess ABG Hemoglobin Oxyhemoglobin Sodium 153 H Potassium Chloride 114.9 H Carbon Dioxide BUN 74 H Creatinine Glucose 155 H POC Glucose 127 H Lactic Acid Calcium 8.1 L Phosphorus Magnesium AST ALT Alkaline Phosphatase Lactate Dehydrogenase Troponin T C-Reactive Protein NT-Pro-B Natriuret Pep Total Protein Albumin LDL Cholesterol Direct Vitamin B12 Urine WBC (Auto) Fluid Glucose Fluid Total Protein Vancomycin Trough Crossmatch 11/16/21 11/16/21 11/16/21 11:34 14:00 15:25 WBC 17.2 H RBC 2.08 L Hgb 4.7 L* Hct 16.2 L* MCV 78 L MCH 23 L MCHC 29 L RDW 26.0 H Plt Count Eos % (Auto) Eos # (Auto) Seg Neuts % (Manual) 87.0 H Lymphocytes % (Manual) 8.0 L Seg Neutrophils # Seg Neutrophils # Man 15.0 H Lymphocytes # (Manual) Monocytes # (Manual) 0.9 H PT INR D-Dimer ABG pH ABG pO2 ABG HCO3 ABG O2 Saturation ABG Base Excess ABG Hemoglobin Oxyhemoglobin Sodium Potassium Chloride Carbon Dioxide BUN Creatinine Glucose POC Glucose 131 H Lactic Acid Calcium Phosphorus Magnesium AST ALT Alkaline Phosphatase Lactate Dehydrogenase Troponin T C-Reactive Protein NT-Pro-B Natriuret Pep Total Protein Albumin LDL Cholesterol Direct Vitamin B12 Urine WBC (Auto) Fluid Glucose Fluid Total Protein Vancomycin Trough Crossmatch See Detail 11/16/21 11/16/21 11/16/21 15:25 17:21 22:43 WBC RBC Hgb 8.6 L D Hct 27.7 L D MCV MCH MCHC RDW Plt Count Eos % (Auto) Eos # (Auto) Seg Neuts % (Manual) Lymphocytes % (Manual) Seg Neutrophils # Seg Neutrophils # Man Lymphocytes # (Manual) Monocytes # (Manual) PT INR D-Dimer ABG pH ABG pO2 ABG HCO3 ABG O2 Saturation ABG Base Excess ABG Hemoglobin Oxyhemoglobin Sodium 148 H Potassium Chloride 113.2 H Carbon Dioxide BUN 84 H Creatinine Glucose 164 H POC Glucose 124 H Lactic Acid Calcium 7.6 L Phosphorus Magnesium AST ALT Alkaline Phosphatase Lactate Dehydrogenase Troponin T C-Reactive Protein NT-Pro-B Natriuret Pep Total Protein Albumin LDL Cholesterol Direct Vitamin B12 Urine WBC (Auto) Fluid Glucose Fluid Total Protein Vancomycin Trough Crossmatch 11/16/21 11/17/21 11/17/21 23:07 05:33 05:56 WBC 25.1 H RBC 3.47 L Hgb 8.7 L Hct 28.5 L MCV MCH 25 L MCHC RDW 22.3 H Plt Count Eos % (Auto) Eos # (Auto) Seg Neuts % (Manual) Lymphocytes % (Manual) Seg Neutrophils # Seg Neutrophils # Man Lymphocytes # (Manual) Monocytes # (Manual) PT INR D-Dimer ABG pH ABG pO2 ABG HCO3 ABG O2 Saturation ABG Base Excess ABG Hemoglobin Oxyhemoglobin Sodium Potassium Chloride Carbon Dioxide BUN Creatinine Glucose POC Glucose 128 H 133 H Lactic Acid Calcium Phosphorus Magnesium AST ALT Alkaline Phosphatase Lactate Dehydrogenase Troponin T C-Reactive Protein NT-Pro-B Natriuret Pep Total Protein Albumin LDL Cholesterol Direct Vitamin B12 Urine WBC (Auto) Fluid Glucose Fluid Total Protein Vancomycin Trough Crossmatch 11/17/21 11/17/21 11/17/21 05:56 11:00 11:55 WBC RBC Hgb 8.3 L Hct 26.9 L MCV MCH MCHC RDW Plt Count Eos % (Auto) Eos # (Auto) Seg Neuts % (Manual) Lymphocytes % (Manual) Seg Neutrophils # Seg Neutrophils # Man Lymphocytes # (Manual) Monocytes # (Manual) PT INR D-Dimer ABG pH ABG pO2 ABG HCO3 ABG O2 Saturation ABG Base Excess ABG Hemoglobin Oxyhemoglobin Sodium 151 H Potassium Chloride 113.6 H Carbon Dioxide BUN 85 H Creatinine Glucose 132 H POC Glucose 121 H Lactic Acid Calcium 7.8 L Phosphorus Magnesium AST ALT Alkaline Phosphatase Lactate Dehydrogenase Troponin T C-Reactive Protein NT-Pro-B Natriuret Pep Total Protein 5.1 L Albumin 2.2 L LDL Cholesterol Direct Vitamin B12 Urine WBC (Auto) Fluid Glucose Fluid Total Protein Vancomycin Trough Crossmatch 11/17/21 11/17/21 11/18/21 18:04 18:55 00:26 WBC RBC Hgb 7.5 L 7.1 L Hct 24.8 L 23.6 L MCV MCH MCHC RDW Plt Count Eos % (Auto) Eos # (Auto) Seg Neuts % (Manual) Lymphocytes % (Manual) Seg Neutrophils # Seg Neutrophils # Man Lymphocytes # (Manual) Monocytes # (Manual) PT INR D-Dimer ABG pH ABG pO2 ABG HCO3 ABG O2 Saturation ABG Base Excess ABG Hemoglobin Oxyhemoglobin Sodium Potassium Chloride Carbon Dioxide BUN Creatinine Glucose POC Glucose 144 H Lactic Acid Calcium Phosphorus Magnesium AST ALT Alkaline Phosphatase Lactate Dehydrogenase Troponin T C-Reactive Protein NT-Pro-B Natriuret Pep Total Protein Albumin LDL Cholesterol Direct Vitamin B12 Urine WBC (Auto) Fluid Glucose Fluid Total Protein Vancomycin Trough Crossmatch 11/18/21 11/18/21 11/18/21 00:43 05:10 05:10 WBC 12.5 H RBC 2.39 L Hgb 6.1 L Hct 20.2 L MCV MCH 25 L MCHC RDW 23.2 H Plt Count Eos % (Auto) Eos # (Auto) Seg Neuts % (Manual) Lymphocytes % (Manual) Seg Neutrophils # Seg Neutrophils # Man Lymphocytes # (Manual) Monocytes # (Manual) PT INR D-Dimer ABG pH ABG pO2 ABG HCO3 ABG O2 Saturation ABG Base Excess ABG Hemoglobin Oxyhemoglobin Sodium 131 L D Potassium 2.9 L* D Chloride 97.8 L Carbon Dioxide BUN 58 H Creatinine Glucose 665 H* POC Glucose 139 H Lactic Acid Calcium 7.0 L Phosphorus 2.20 L D Magnesium 1.50 L AST ALT Alkaline Phosphatase Lactate Dehydrogenase Troponin T C-Reactive Protein NT-Pro-B Natriuret Pep Total Protein Albumin LDL Cholesterol Direct Vitamin B12 Urine WBC (Auto) Fluid Glucose Fluid Total Protein Vancomycin Trough Crossmatch 11/18/21 11/18/21 11/18/21 05:23 07:10 10:45 WBC RBC Hgb Hct MCV MCH MCHC RDW Plt Count Eos % (Auto) Eos # (Auto) Seg Neuts % (Manual) Lymphocytes % (Manual) Seg Neutrophils # Seg Neutrophils # Man Lymphocytes # (Manual) Monocytes # (Manual) PT INR D-Dimer ABG pH ABG pO2 ABG HCO3 ABG O2 Saturation ABG Base Excess ABG Hemoglobin Oxyhemoglobin Sodium 148 H D Potassium 3.1 L Chloride 111.9 H Carbon Dioxide BUN 63 H Creatinine Glucose 141 H POC Glucose 124 H Lactic Acid Calcium 8.1 L D Phosphorus Magnesium AST ALT Alkaline Phosphatase Lactate Dehydrogenase Troponin T C-Reactive Protein NT-Pro-B Natriuret Pep Total Protein Albumin LDL Cholesterol Direct Vitamin B12 Urine WBC (Auto) Fluid Glucose Fluid Total Protein Vancomycin Trough Crossmatch See Detail 11/18/21 11/19/21 11/19/21 11:57 00:19 04:55 WBC RBC 3.35 L Hgb 9.0 L 8.9 L Hct 28.3 L D 28.1 L MCV MCH 27 L MCHC RDW 20.3 H Plt Count Eos % (Auto) Eos # (Auto) Seg Neuts % (Manual) Lymphocytes % (Manual) Seg Neutrophils # Seg Neutrophils # Man Lymphocytes # (Manual) Monocytes # (Manual) PT INR D-Dimer ABG pH ABG pO2 ABG HCO3 ABG O2 Saturation ABG Base Excess ABG Hemoglobin Oxyhemoglobin Sodium Potassium Chloride Carbon Dioxide BUN Creatinine Glucose POC Glucose 119 H Lactic Acid Calcium Phosphorus Magnesium AST ALT Alkaline Phosphatase Lactate Dehydrogenase Troponin T C-Reactive Protein NT-Pro-B Natriuret Pep Total Protein Albumin LDL Cholesterol Direct Vitamin B12 Urine WBC (Auto) Fluid Glucose Fluid Total Protein Vancomycin Trough Crossmatch 11/19/21 11/19/21 11/20/21 04:55 05:42 00:55 WBC RBC Hgb 9.0 L Hct 28.6 L MCV MCH MCHC RDW Plt Count Eos % (Auto) Eos # (Auto) Seg Neuts % (Manual) Lymphocytes % (Manual) Seg Neutrophils # Seg Neutrophils # Man Lymphocytes # (Manual) Monocytes # (Manual) PT INR D-Dimer ABG pH ABG pO2 ABG HCO3 ABG O2 Saturation ABG Base Excess ABG Hemoglobin Oxyhemoglobin Sodium Potassium 3.5 L Chloride 108.6 H Carbon Dioxide BUN 47 H Creatinine Glucose 207 H POC Glucose 63 L Lactic Acid Calcium 7.1 L Phosphorus Magnesium AST ALT Alkaline Phosphatase Lactate Dehydrogenase Troponin T C-Reactive Protein NT-Pro-B Natriuret Pep Total Protein Albumin LDL Cholesterol Direct Vitamin B12 Urine WBC (Auto) Fluid Glucose Fluid Total Protein Vancomycin Trough Crossmatch 11/20/21 11/20/21 11/20/21 05:40 05:40 Unknown WBC RBC 3.40 L Hgb 9.1 L Hct 28.8 L MCV MCH 27 L MCHC RDW 20.7 H Plt Count Eos % (Auto) Eos # (Auto) Seg Neuts % (Manual) Lymphocytes % (Manual) Seg Neutrophils # Seg Neutrophils # Man Lymphocytes # (Manual) Monocytes # (Manual) PT INR D-Dimer ABG pH ABG pO2 ABG HCO3 ABG O2 Saturation ABG Base Excess -2.7 L ABG Hemoglobin 9.5 L Oxyhemoglobin 94.3 L Sodium Potassium 3.5 L Chloride 108.9 H Carbon Dioxide BUN 37 H Creatinine Glucose 117 H POC Glucose Lactic Acid Calcium 7.5 L Phosphorus Magnesium AST ALT Alkaline Phosphatase Lactate Dehydrogenase Troponin T C-Reactive Protein NT-Pro-B Natriuret Pep Total Protein Albumin LDL Cholesterol Direct Vitamin B12 Urine WBC (Auto) Fluid Glucose Fluid Total Protein Vancomycin Trough Crossmatch 11/21/21 11/21/21 11/21/21 04:30 04:30 16:00 WBC RBC 3.25 L Hgb 8.6 L Hct 28.1 L MCV MCH 26 L MCHC RDW 20.7 H Plt Count Eos % (Auto) Eos # (Auto) Seg Neuts % (Manual) Lymphocytes % (Manual) Seg Neutrophils # Seg Neutrophils # Man Lymphocytes # (Manual) Monocytes # (Manual) PT INR D-Dimer ABG pH ABG pO2 114.2 H ABG HCO3 ABG O2 Saturation ABG Base Excess ABG Hemoglobin 9.1 L Oxyhemoglobin Sodium 134 L Potassium Chloride Carbon Dioxide 20 L BUN 34 H Creatinine Glucose POC Glucose Lactic Acid Calcium 7.1 L Phosphorus Magnesium AST ALT Alkaline Phosphatase Lactate Dehydrogenase Troponin T C-Reactive Protein NT-Pro-B Natriuret Pep Total Protein Albumin LDL Cholesterol Direct Vitamin B12 Urine WBC (Auto) Fluid Glucose Fluid Total Protein Vancomycin Trough Crossmatch 11/22/21 11/22/21 11/22/21 07:07 07:07 23:54 WBC RBC 3.30 L Hgb 9.0 L Hct 28.5 L MCV MCH 27 L MCHC RDW 21.0 H Plt Count Eos % (Auto) Eos # (Auto) Seg Neuts % (Manual) Lymphocytes % (Manual) Seg Neutrophils # Seg Neutrophils # Man Lymphocytes # (Manual) Monocytes # (Manual) PT INR D-Dimer ABG pH ABG pO2 ABG HCO3 ABG O2 Saturation ABG Base Excess ABG Hemoglobin Oxyhemoglobin Sodium Potassium Chloride Carbon Dioxide BUN 32 H Creatinine Glucose 106 H POC Glucose 110 H Lactic Acid Calcium 7.5 L Phosphorus Magnesium AST ALT Alkaline Phosphatase Lactate Dehydrogenase Troponin T C-Reactive Protein NT-Pro-B Natriuret Pep Total Protein Albumin LDL Cholesterol Direct Vitamin B12 Urine WBC (Auto) Fluid Glucose Fluid Total Protein Vancomycin Trough Crossmatch 11/23/21 11/23/21 11/23/21 04:38 04:38 06:01 WBC RBC 3.23 L Hgb 8.8 L Hct 28.0 L MCV MCH 27 L MCHC RDW 21.3 H Plt Count Eos % (Auto) Eos # (Auto) Seg Neuts % (Manual) Lymphocytes % (Manual) Seg Neutrophils # Seg Neutrophils # Man Lymphocytes # (Manual) Monocytes # (Manual) PT INR D-Dimer ABG pH ABG pO2 ABG HCO3 ABG O2 Saturation ABG Base Excess ABG Hemoglobin Oxyhemoglobin Sodium 136 L Potassium Chloride Carbon Dioxide 20 L BUN 32 H Creatinine Glucose 109 H POC Glucose 115 H Lactic Acid Calcium 7.7 L Phosphorus Magnesium AST ALT Alkaline Phosphatase Lactate Dehydrogenase Troponin T C-Reactive Protein NT-Pro-B Natriuret Pep Total Protein Albumin LDL Cholesterol Direct Vitamin B12 Urine WBC (Auto) Fluid Glucose Fluid Total Protein Vancomycin Trough Crossmatch 11/23/21 11/24/21 11/24/21 11:40 00:03 04:13 WBC RBC 3.18 L Hgb 8.5 L Hct 27.5 L MCV MCH 27 L MCHC RDW 21.6 H Plt Count Eos % (Auto) Eos # (Auto) Seg Neuts % (Manual) Lymphocytes % (Manual) Seg Neutrophils # Seg Neutrophils # Man Lymphocytes # (Manual) Monocytes # (Manual) PT INR D-Dimer ABG pH ABG pO2 ABG HCO3 ABG O2 Saturation ABG Base Excess ABG Hemoglobin Oxyhemoglobin Sodium Potassium Chloride Carbon Dioxide BUN Creatinine Glucose POC Glucose 117 H 111 H Lactic Acid Calcium Phosphorus Magnesium AST ALT Alkaline Phosphatase Lactate Dehydrogenase Troponin T C-Reactive Protein NT-Pro-B Natriuret Pep Total Protein Albumin LDL Cholesterol Direct Vitamin B12 Urine WBC (Auto) Fluid Glucose Fluid Total Protein Vancomycin Trough Crossmatch 11/24/21 11/24/21 11/24/21 04:13 05:30 11:10 WBC RBC Hgb Hct MCV MCH MCHC RDW Plt Count Eos % (Auto) Eos # (Auto) Seg Neuts % (Manual) Lymphocytes % (Manual) Seg Neutrophils # Seg Neutrophils # Man Lymphocytes # (Manual) Monocytes # (Manual) PT INR D-Dimer ABG pH ABG pO2 ABG HCO3 ABG O2 Saturation ABG Base Excess ABG Hemoglobin Oxyhemoglobin Sodium Potassium Chloride Carbon Dioxide BUN 31 H Creatinine Glucose 101 H POC Glucose 115 H 107 H Lactic Acid Calcium 7.7 L Phosphorus Magnesium AST ALT Alkaline Phosphatase Lactate Dehydrogenase Troponin T C-Reactive Protein NT-Pro-B Natriuret Pep Total Protein Albumin LDL Cholesterol Direct Vitamin B12 Urine WBC (Auto) Fluid Glucose Fluid Total Protein Vancomycin Trough Crossmatch 11/24/21 11/24/21 11/25/21 16:34 17:57 05:12 WBC RBC 3.11 L Hgb 8.2 L Hct 26.6 L MCV MCH 26 L MCHC RDW 21.3 H Plt Count Eos % (Auto) Eos # (Auto) Seg Neuts % (Manual) Lymphocytes % (Manual) Seg Neutrophils # Seg Neutrophils # Man Lymphocytes # (Manual) Monocytes # (Manual) PT INR D-Dimer ABG pH ABG pO2 ABG HCO3 ABG O2 Saturation ABG Base Excess ABG Hemoglobin Oxyhemoglobin Sodium Potassium Chloride Carbon Dioxide BUN Creatinine Glucose POC Glucose 115 H 110 H Lactic Acid Calcium Phosphorus Magnesium AST ALT Alkaline Phosphatase Lactate Dehydrogenase Troponin T C-Reactive Protein NT-Pro-B Natriuret Pep Total Protein Albumin LDL Cholesterol Direct Vitamin B12 Urine WBC (Auto) Fluid Glucose Fluid Total Protein Vancomycin Trough Crossmatch 11/25/21 11/25/21 11/26/21 05:12 11:20 05:00 WBC RBC 3.30 L Hgb 8.8 L Hct 28.2 L MCV MCH 27 L MCHC RDW 20.7 H Plt Count Eos % (Auto) Eos # (Auto) Seg Neuts % (Manual) Lymphocytes % (Manual) Seg Neutrophils # Seg Neutrophils # Man Lymphocytes # (Manual) Monocytes # (Manual) PT INR D-Dimer ABG pH ABG pO2 ABG HCO3 ABG O2 Saturation ABG Base Excess ABG Hemoglobin Oxyhemoglobin Sodium Potassium Chloride Carbon Dioxide BUN 32 H Creatinine Glucose 118 H POC Glucose 118 H Lactic Acid Calcium 8.2 L Phosphorus Magnesium AST ALT Alkaline Phosphatase Lactate Dehydrogenase Troponin T C-Reactive Protein NT-Pro-B Natriuret Pep Total Protein Albumin LDL Cholesterol Direct Vitamin B12 Urine WBC (Auto) Fluid Glucose Fluid Total Protein Vancomycin Trough Crossmatch 11/26/21 11/26/21 11/26/21 05:00 05:00 05:44 WBC RBC Hgb Hct MCV MCH MCHC RDW Plt Count Eos % (Auto) Eos # (Auto) Seg Neuts % (Manual) Lymphocytes % (Manual) Seg Neutrophils # Seg Neutrophils # Man Lymphocytes # (Manual) Monocytes # (Manual) PT 16.9 H INR 1.24 H D-Dimer ABG pH ABG pO2 ABG HCO3 ABG O2 Saturation ABG Base Excess ABG Hemoglobin Oxyhemoglobin Sodium Potassium Chloride Carbon Dioxide BUN 31 H Creatinine Glucose 104 H POC Glucose 110 H Lactic Acid Calcium 7.9 L Phosphorus Magnesium AST ALT Alkaline Phosphatase Lactate Dehydrogenase Troponin T C-Reactive Protein NT-Pro-B Natriuret Pep Total Protein Albumin LDL Cholesterol Direct Vitamin B12 Urine WBC (Auto) Fluid Glucose Fluid Total Protein Vancomycin Trough Crossmatch 11/26/21 11/27/21 11/27/21 23:55 07:40 07:40 WBC RBC 3.18 L Hgb 8.5 L Hct 27.0 L MCV MCH 27 L MCHC RDW 21.2 H Plt Count Eos % (Auto) Eos # (Auto) Seg Neuts % (Manual) Lymphocytes % (Manual) Seg Neutrophils # Seg Neutrophils # Man Lymphocytes # (Manual) Monocytes # (Manual) PT INR D-Dimer ABG pH ABG pO2 ABG HCO3 ABG O2 Saturation ABG Base Excess ABG Hemoglobin Oxyhemoglobin Sodium Potassium Chloride Carbon Dioxide BUN 27 H Creatinine Glucose 112 H POC Glucose 63 L Lactic Acid Calcium 7.6 L Phosphorus Magnesium AST ALT Alkaline Phosphatase Lactate Dehydrogenase Troponin T C-Reactive Protein NT-Pro-B Natriuret Pep Total Protein Albumin LDL Cholesterol Direct Vitamin B12 Urine WBC (Auto) Fluid Glucose Fluid Total Protein Vancomycin Trough Crossmatch 11/27/21 11/27/21 11/27/21 12:04 13:40 13:40 WBC RBC 3.31 L Hgb 8.7 L Hct 28.0 L MCV MCH 26 L MCHC RDW 20.7 H Plt Count Eos % (Auto) Eos # (Auto) Seg Neuts % (Manual) Lymphocytes % (Manual) Seg Neutrophils # Seg Neutrophils # Man Lymphocytes # (Manual) Monocytes # (Manual) PT INR D-Dimer ABG pH ABG pO2 ABG HCO3 ABG O2 Saturation ABG Base Excess ABG Hemoglobin Oxyhemoglobin Sodium 136 L Potassium Chloride Carbon Dioxide BUN 25 H Creatinine Glucose 127 H POC Glucose 109 H Lactic Acid Calcium 7.6 L Phosphorus Magnesium 1.40 L AST ALT Alkaline Phosphatase Lactate Dehydrogenase Troponin T C-Reactive Protein NT-Pro-B Natriuret Pep Total Protein Albumin LDL Cholesterol Direct Vitamin B12 Urine WBC (Auto) Fluid Glucose Fluid Total Protein Vancomycin Trough Crossmatch 11/27/21 11/27/21 11/28/21 17:44 23:33 12:20 WBC RBC Hgb Hct MCV MCH MCHC RDW Plt Count Eos % (Auto) Eos # (Auto) Seg Neuts % (Manual) Lymphocytes % (Manual) Seg Neutrophils # Seg Neutrophils # Man Lymphocytes # (Manual) Monocytes # (Manual) PT INR D-Dimer ABG pH ABG pO2 ABG HCO3 ABG O2 Saturation ABG Base Excess ABG Hemoglobin Oxyhemoglobin Sodium Potassium Chloride Carbon Dioxide BUN Creatinine Glucose POC Glucose 107 H 108 H 114 H Lactic Acid Calcium Phosphorus Magnesium AST ALT Alkaline Phosphatase Lactate Dehydrogenase Troponin T C-Reactive Protein NT-Pro-B Natriuret Pep Total Protein Albumin LDL Cholesterol Direct Vitamin B12 Urine WBC (Auto) Fluid Glucose Fluid Total Protein Vancomycin Trough Crossmatch 11/29/21 11/29/21 11/29/21 00:09 03:20 03:20 WBC RBC 3.05 L Hgb 8.2 L Hct 25.8 L MCV MCH 27 L MCHC RDW 20.9 H Plt Count Eos % (Auto) Eos # (Auto) Seg Neuts % (Manual) Lymphocytes % (Manual) Seg Neutrophils # Seg Neutrophils # Man Lymphocytes # (Manual) Monocytes # (Manual) PT INR D-Dimer ABG pH ABG pO2 ABG HCO3 ABG O2 Saturation ABG Base Excess ABG Hemoglobin Oxyhemoglobin Sodium 133 L Potassium Chloride Carbon Dioxide BUN 24 H Creatinine Glucose 137 H POC Glucose 134 H Lactic Acid Calcium 7.4 L Phosphorus Magnesium AST ALT Alkaline Phosphatase Lactate Dehydrogenase Troponin T C-Reactive Protein NT-Pro-B Natriuret Pep Total Protein Albumin LDL Cholesterol Direct Vitamin B12 Urine WBC (Auto) Fluid Glucose Fluid Total Protein Vancomycin Trough Crossmatch 11/29/21 11/29/21 11/29/21 05:38 11:39 17:11 WBC RBC Hgb Hct MCV MCH MCHC RDW Plt Count Eos % (Auto) Eos # (Auto) Seg Neuts % (Manual) Lymphocytes % (Manual) Seg Neutrophils # Seg Neutrophils # Man Lymphocytes # (Manual) Monocytes # (Manual) PT INR D-Dimer ABG pH ABG pO2 ABG HCO3 ABG O2 Saturation ABG Base Excess ABG Hemoglobin Oxyhemoglobin Sodium Potassium Chloride Carbon Dioxide BUN Creatinine Glucose POC Glucose 117 H 143 H 124 H Lactic Acid Calcium Phosphorus Magnesium AST ALT Alkaline Phosphatase Lactate Dehydrogenase Troponin T C-Reactive Protein NT-Pro-B Natriuret Pep Total Protein Albumin LDL Cholesterol Direct Vitamin B12 Urine WBC (Auto) Fluid Glucose Fluid Total Protein Vancomycin Trough Crossmatch 11/29/21 11/30/21 11/30/21 20:15 05:40 05:40 WBC 12.6 H RBC 3.41 L Hgb 9.1 L Hct 28.9 L MCV MCH 27 L MCHC RDW 20.4 H Plt Count Eos % (Auto) Eos # (Auto) Seg Neuts % (Manual) Lymphocytes % (Manual) Seg Neutrophils # Seg Neutrophils # Man Lymphocytes # (Manual) Monocytes # (Manual) PT INR D-Dimer ABG pH ABG pO2 ABG HCO3 ABG O2 Saturation ABG Base Excess ABG Hemoglobin Oxyhemoglobin Sodium Potassium Chloride Carbon Dioxide BUN 24 H Creatinine Glucose 131 H POC Glucose Lactic Acid Calcium 7.6 L Phosphorus Magnesium AST ALT Alkaline Phosphatase Lactate Dehydrogenase Troponin T 0.045 H C-Reactive Protein NT-Pro-B Natriuret Pep Total Protein Albumin LDL Cholesterol Direct 25 L Vitamin B12 Urine WBC (Auto) Fluid Glucose Fluid Total Protein Vancomycin Trough Crossmatch 11/30/21 11/30/21 12/01/21 11:29 16:51 05:00 WBC RBC 2.97 L Hgb 8.0 L Hct 25.0 L MCV MCH 27 L MCHC RDW 20.8 H Plt Count Eos % (Auto) Eos # (Auto) Seg Neuts % (Manual) Lymphocytes % (Manual) Seg Neutrophils # Seg Neutrophils # Man Lymphocytes # (Manual) Monocytes # (Manual) PT INR D-Dimer ABG pH ABG pO2 ABG HCO3 ABG O2 Saturation ABG Base Excess ABG Hemoglobin Oxyhemoglobin Sodium Potassium Chloride Carbon Dioxide BUN Creatinine Glucose POC Glucose 123 H 114 H Lactic Acid Calcium Phosphorus Magnesium AST ALT Alkaline Phosphatase Lactate Dehydrogenase Troponin T C-Reactive Protein NT-Pro-B Natriuret Pep Total Protein Albumin LDL Cholesterol Direct Vitamin B12 Urine WBC (Auto) Fluid Glucose Fluid Total Protein Vancomycin Trough Crossmatch 12/01/21 12/01/21 12/01/21 05:00 05:25 11:54 WBC RBC Hgb Hct MCV MCH MCHC RDW Plt Count Eos % (Auto) Eos # (Auto) Seg Neuts % (Manual) Lymphocytes % (Manual) Seg Neutrophils # Seg Neutrophils # Man Lymphocytes # (Manual) Monocytes # (Manual) PT INR D-Dimer ABG pH ABG pO2 ABG HCO3 ABG O2 Saturation ABG Base Excess ABG Hemoglobin Oxyhemoglobin Sodium 136 L Potassium Chloride Carbon Dioxide BUN 24 H Creatinine Glucose 117 H POC Glucose 108 H 107 H Lactic Acid Calcium 7.5 L Phosphorus Magnesium 1.60 L AST ALT Alkaline Phosphatase Lactate Dehydrogenase Troponin T C-Reactive Protein NT-Pro-B Natriuret Pep Total Protein Albumin LDL Cholesterol Direct Vitamin B12 Urine WBC (Auto) Fluid Glucose Fluid Total Protein Vancomycin Trough Crossmatch 12/01/21 12/02/21 12/02/21 17:40 00:07 04:20 WBC RBC 2.92 L Hgb 7.7 L Hct 24.3 L MCV MCH 26 L MCHC RDW 20.5 H Plt Count Eos % (Auto) Eos # (Auto) Seg Neuts % (Manual) Lymphocytes % (Manual) Seg Neutrophils # Seg Neutrophils # Man Lymphocytes # (Manual) Monocytes # (Manual) PT INR D-Dimer ABG pH ABG pO2 ABG HCO3 ABG O2 Saturation ABG Base Excess ABG Hemoglobin Oxyhemoglobin Sodium Potassium Chloride Carbon Dioxide BUN Creatinine Glucose POC Glucose 123 H 110 H Lactic Acid Calcium Phosphorus Magnesium AST ALT Alkaline Phosphatase Lactate Dehydrogenase Troponin T C-Reactive Protein NT-Pro-B Natriuret Pep Total Protein Albumin LDL Cholesterol Direct Vitamin B12 Urine WBC (Auto) Fluid Glucose Fluid Total Protein Vancomycin Trough Crossmatch 12/02/21 12/02/21 12/02/21 04:20 11:17 18:20 WBC RBC Hgb Hct MCV MCH MCHC RDW Plt Count Eos % (Auto) Eos # (Auto) Seg Neuts % (Manual) Lymphocytes % (Manual) Seg Neutrophils # Seg Neutrophils # Man Lymphocytes # (Manual) Monocytes # (Manual) PT INR D-Dimer ABG pH ABG pO2 ABG HCO3 ABG O2 Saturation ABG Base Excess ABG Hemoglobin Oxyhemoglobin Sodium 135 L Potassium Chloride Carbon Dioxide BUN 26 H Creatinine Glucose 121 H POC Glucose 117 H 113 H Lactic Acid Calcium 7.4 L Phosphorus Magnesium AST ALT Alkaline Phosphatase Lactate Dehydrogenase Troponin T C-Reactive Protein NT-Pro-B Natriuret Pep Total Protein Albumin LDL Cholesterol Direct Vitamin B12 Urine WBC (Auto) Fluid Glucose Fluid Total Protein Vancomycin Trough Crossmatch 12/03/21 12/03/21 12/03/21 00:12 04:00 04:00 WBC RBC 2.99 L Hgb 7.8 L Hct 24.6 L MCV MCH 26 L MCHC RDW 20.2 H Plt Count Eos % (Auto) Eos # (Auto) Seg Neuts % (Manual) Lymphocytes % (Manual) Seg Neutrophils # Seg Neutrophils # Man Lymphocytes # (Manual) Monocytes # (Manual) PT INR D-Dimer ABG pH ABG pO2 ABG HCO3 ABG O2 Saturation ABG Base Excess ABG Hemoglobin Oxyhemoglobin Sodium 136 L Potassium Chloride Carbon Dioxide BUN 27 H Creatinine Glucose 133 H POC Glucose 121 H Lactic Acid Calcium 7.5 L Phosphorus Magnesium AST ALT Alkaline Phosphatase Lactate Dehydrogenase Troponin T C-Reactive Protein NT-Pro-B Natriuret Pep Total Protein Albumin LDL Cholesterol Direct Vitamin B12 Urine WBC (Auto) Fluid Glucose Fluid Total Protein Vancomycin Trough Crossmatch 12/03/21 12/03/21 12/03/21 06:30 11:13 16:00 WBC RBC Hgb Hct MCV MCH MCHC RDW Plt Count Eos % (Auto) Eos # (Auto) Seg Neuts % (Manual) Lymphocytes % (Manual) Seg Neutrophils # Seg Neutrophils # Man Lymphocytes # (Manual) Monocytes # (Manual) PT INR D-Dimer ABG pH ABG pO2 ABG HCO3 ABG O2 Saturation ABG Base Excess ABG Hemoglobin Oxyhemoglobin Sodium Potassium Chloride Carbon Dioxide BUN Creatinine Glucose POC Glucose 129 H 125 H 125 H Lactic Acid Calcium Phosphorus Magnesium AST ALT Alkaline Phosphatase Lactate Dehydrogenase Troponin T C-Reactive Protein NT-Pro-B Natriuret Pep Total Protein Albumin LDL Cholesterol Direct Vitamin B12 Urine WBC (Auto) Fluid Glucose Fluid Total Protein Vancomycin Trough Crossmatch 12/03/21 12/04/21 12/04/21 23:32 04:00 05:36 WBC RBC Hgb Hct MCV MCH MCHC RDW Plt Count Eos % (Auto) Eos # (Auto) Seg Neuts % (Manual) Lymphocytes % (Manual) Seg Neutrophils # Seg Neutrophils # Man Lymphocytes # (Manual) Monocytes # (Manual) PT INR D-Dimer ABG pH ABG pO2 ABG HCO3 ABG O2 Saturation ABG Base Excess ABG Hemoglobin Oxyhemoglobin Sodium Potassium 3.5 L Chloride Carbon Dioxide BUN 26 H Creatinine 0.5 L Glucose 151 H POC Glucose 133 H 142 H Lactic Acid Calcium 8.3 L Phosphorus Magnesium AST ALT Alkaline Phosphatase Lactate Dehydrogenase Troponin T C-Reactive Protein NT-Pro-B Natriuret Pep Total Protein Albumin LDL Cholesterol Direct Vitamin B12 Urine WBC (Auto) Fluid Glucose Fluid Total Protein Vancomycin Trough Crossmatch 12/04/21 12/04/21 12/05/21 11:24 15:58 04:36 WBC RBC Hgb Hct MCV MCH MCHC RDW Plt Count Eos % (Auto) Eos # (Auto) Seg Neuts % (Manual) Lymphocytes % (Manual) Seg Neutrophils # Seg Neutrophils # Man Lymphocytes # (Manual) Monocytes # (Manual) PT INR D-Dimer ABG pH ABG pO2 ABG HCO3 ABG O2 Saturation ABG Base Excess ABG Hemoglobin Oxyhemoglobin Sodium Potassium Chloride Carbon Dioxide BUN 21 H Creatinine 0.5 L Glucose 119 H POC Glucose 130 H 111 H Lactic Acid Calcium 8.3 L Phosphorus Magnesium AST ALT Alkaline Phosphatase Lactate Dehydrogenase Troponin T C-Reactive Protein NT-Pro-B Natriuret Pep Total Protein Albumin LDL Cholesterol Direct Vitamin B12 Urine WBC (Auto) Fluid Glucose Fluid Total Protein Vancomycin Trough Crossmatch 12/05/21 12/05/21 12/05/21 05:15 10:40 11:12 WBC RBC 2.98 L Hgb 8.1 L Hct 24.6 L MCV MCH 27 L MCHC RDW 20.8 H Plt Count Eos % (Auto) Eos # (Auto) Seg Neuts % (Manual) Lymphocytes % (Manual) Seg Neutrophils # Seg Neutrophils # Man Lymphocytes # (Manual) Monocytes # (Manual) PT INR D-Dimer ABG pH ABG pO2 ABG HCO3 ABG O2 Saturation ABG Base Excess ABG Hemoglobin Oxyhemoglobin Sodium Potassium Chloride Carbon Dioxide BUN Creatinine Glucose POC Glucose 107 H 110 H Lactic Acid Calcium Phosphorus Magnesium AST ALT Alkaline Phosphatase Lactate Dehydrogenase Troponin T C-Reactive Protein NT-Pro-B Natriuret Pep Total Protein Albumin LDL Cholesterol Direct Vitamin B12 Urine WBC (Auto) Fluid Glucose Fluid Total Protein Vancomycin Trough Crossmatch 12/05/21 12/06/21 12/06/21 23:39 04:25 04:25 WBC RBC 2.95 L Hgb 7.9 L Hct 24.7 L MCV MCH 27 L MCHC RDW 20.9 H Plt Count Eos % (Auto) Eos # (Auto) Seg Neuts % (Manual) Lymphocytes % (Manual) Seg Neutrophils # Seg Neutrophils # Man Lymphocytes # (Manual) Monocytes # (Manual) PT INR D-Dimer ABG pH ABG pO2 ABG HCO3 ABG O2 Saturation ABG Base Excess ABG Hemoglobin Oxyhemoglobin Sodium Potassium Chloride Carbon Dioxide BUN 22 H Creatinine 0.5 L Glucose 136 H POC Glucose 118 H Lactic Acid Calcium 8.2 L Phosphorus Magnesium AST ALT Alkaline Phosphatase Lactate Dehydrogenase Troponin T C-Reactive Protein NT-Pro-B Natriuret Pep Total Protein Albumin LDL Cholesterol Direct Vitamin B12 Urine WBC (Auto) Fluid Glucose Fluid Total Protein Vancomycin Trough Crossmatch 12/06/21 12/06/21 12/07/21 05:28 11:27 04:00 WBC RBC Hgb 7.2 L Hct 21.8 L MCV MCH MCHC RDW Plt Count Eos % (Auto) Eos # (Auto) Seg Neuts % (Manual) Lymphocytes % (Manual) Seg Neutrophils # Seg Neutrophils # Man Lymphocytes # (Manual) Monocytes # (Manual) PT INR D-Dimer ABG pH ABG pO2 ABG HCO3 ABG O2 Saturation ABG Base Excess ABG Hemoglobin Oxyhemoglobin Sodium Potassium Chloride Carbon Dioxide BUN Creatinine Glucose POC Glucose 142 H 126 H Lactic Acid Calcium Phosphorus Magnesium AST ALT Alkaline Phosphatase Lactate Dehydrogenase Troponin T C-Reactive Protein NT-Pro-B Natriuret Pep Total Protein Albumin LDL Cholesterol Direct Vitamin B12 Urine WBC (Auto) Fluid Glucose Fluid Total Protein Vancomycin Trough Crossmatch 12/07/21 12/07/21 12/07/21 04:00 05:30 11:12 WBC RBC Hgb Hct MCV MCH MCHC RDW Plt Count Eos % (Auto) Eos # (Auto) Seg Neuts % (Manual) Lymphocytes % (Manual) Seg Neutrophils # Seg Neutrophils # Man Lymphocytes # (Manual) Monocytes # (Manual) PT INR D-Dimer ABG pH ABG pO2 ABG HCO3 ABG O2 Saturation ABG Base Excess ABG Hemoglobin Oxyhemoglobin Sodium Potassium Chloride Carbon Dioxide BUN 22 H Creatinine Glucose 119 H POC Glucose 121 H 124 H Lactic Acid Calcium 8.0 L Phosphorus Magnesium AST ALT Alkaline Phosphatase Lactate Dehydrogenase Troponin T C-Reactive Protein NT-Pro-B Natriuret Pep Total Protein Albumin LDL Cholesterol Direct Vitamin B12 Urine WBC (Auto) Fluid Glucose Fluid Total Protein Vancomycin Trough Crossmatch 12/08/21 12/08/21 12/08/21 04:00 04:00 05:39 WBC RBC 2.81 L Hgb 7.7 L Hct 23.5 L MCV MCH MCHC RDW 21.2 H Plt Count Eos % (Auto) Eos # (Auto) Seg Neuts % (Manual) Lymphocytes % (Manual) Seg Neutrophils # Seg Neutrophils # Man Lymphocytes # (Manual) Monocytes # (Manual) PT INR D-Dimer ABG pH ABG pO2 ABG HCO3 ABG O2 Saturation ABG Base Excess ABG Hemoglobin Oxyhemoglobin Sodium 135 L Potassium Chloride Carbon Dioxide BUN 23 H Creatinine Glucose 109 H POC Glucose 112 H Lactic Acid Calcium Phosphorus Magnesium AST ALT Alkaline Phosphatase Lactate Dehydrogenase Troponin T C-Reactive Protein NT-Pro-B Natriuret Pep Total Protein Albumin LDL Cholesterol Direct Vitamin B12 Urine WBC (Auto) Fluid Glucose Fluid Total Protein Vancomycin Trough Crossmatch 12/08/21 12/09/21 12/09/21 11:03 04:20 04:20 WBC RBC 2.67 L Hgb 7.6 L Hct 22.1 L MCV MCH MCHC RDW 20.8 H Plt Count Eos % (Auto) Eos # (Auto) Seg Neuts % (Manual) Lymphocytes % (Manual) Seg Neutrophils # Seg Neutrophils # Man Lymphocytes # (Manual) Monocytes # (Manual) PT INR D-Dimer ABG pH ABG pO2 ABG HCO3 ABG O2 Saturation ABG Base Excess ABG Hemoglobin Oxyhemoglobin Sodium 135 L Potassium Chloride 97.8 L Carbon Dioxide BUN 26 H Creatinine Glucose 119 H POC Glucose 108 H Lactic Acid Calcium 7.7 L Phosphorus Magnesium AST ALT Alkaline Phosphatase Lactate Dehydrogenase Troponin T C-Reactive Protein NT-Pro-B Natriuret Pep Total Protein Albumin LDL Cholesterol Direct Vitamin B12 Urine WBC (Auto) Fluid Glucose Fluid Total Protein Vancomycin Trough Crossmatch 12/09/21 12/10/21 12/10/21 11:26 04:33 11:12 WBC RBC Hgb Hct MCV MCH MCHC RDW Plt Count Eos % (Auto) Eos # (Auto) Seg Neuts % (Manual) Lymphocytes % (Manual) Seg Neutrophils # Seg Neutrophils # Man Lymphocytes # (Manual) Monocytes # (Manual) PT INR D-Dimer ABG pH ABG pO2 ABG HCO3 ABG O2 Saturation ABG Base Excess ABG Hemoglobin Oxyhemoglobin Sodium 136 L Potassium Chloride Carbon Dioxide BUN 27 H Creatinine Glucose 117 H POC Glucose 110 H 117 H Lactic Acid Calcium 8.2 L Phosphorus Magnesium AST ALT Alkaline Phosphatase Lactate Dehydrogenase Troponin T C-Reactive Protein NT-Pro-B Natriuret Pep Total Protein Albumin LDL Cholesterol Direct Vitamin B12 Urine WBC (Auto) Fluid Glucose Fluid Total Protein Vancomycin Trough Crossmatch 12/10/21 12/10/21 12/11/21 16:02 23:31 04:35 WBC RBC 2.57 L Hgb 7.0 L Hct 21.4 L MCV MCH 27 L MCHC RDW 21.1 H Plt Count Eos % (Auto) Eos # (Auto) Seg Neuts % (Manual) Lymphocytes % (Manual) Seg Neutrophils # Seg Neutrophils # Man Lymphocytes # (Manual) Monocytes # (Manual) PT INR D-Dimer ABG pH ABG pO2 ABG HCO3 ABG O2 Saturation ABG Base Excess ABG Hemoglobin Oxyhemoglobin Sodium Potassium Chloride Carbon Dioxide BUN Creatinine Glucose POC Glucose 137 H 111 H Lactic Acid Calcium Phosphorus Magnesium AST ALT Alkaline Phosphatase Lactate Dehydrogenase Troponin T C-Reactive Protein NT-Pro-B Natriuret Pep Total Protein Albumin LDL Cholesterol Direct Vitamin B12 Urine WBC (Auto) Fluid Glucose Fluid Total Protein Vancomycin Trough Crossmatch 12/11/21 12/11/21 12/11/21 04:35 12:46 16:07 WBC RBC Hgb Hct MCV MCH MCHC RDW Plt Count Eos % (Auto) Eos # (Auto) Seg Neuts % (Manual) Lymphocytes % (Manual) Seg Neutrophils # Seg Neutrophils # Man Lymphocytes # (Manual) Monocytes # (Manual) PT INR D-Dimer ABG pH ABG pO2 ABG HCO3 ABG O2 Saturation ABG Base Excess ABG Hemoglobin Oxyhemoglobin Sodium 136 L Potassium Chloride Carbon Dioxide BUN 27 H Creatinine Glucose 112 H POC Glucose 115 H 111 H Lactic Acid Calcium 7.6 L Phosphorus Magnesium AST ALT Alkaline Phosphatase Lactate Dehydrogenase Troponin T C-Reactive Protein NT-Pro-B Natriuret Pep Total Protein Albumin LDL Cholesterol Direct Vitamin B12 Urine WBC (Auto) Fluid Glucose Fluid Total Protein Vancomycin Trough Crossmatch 12/11/21 12/12/21 12/12/21 23:42 04:30 04:30 WBC RBC 2.60 L Hgb 7.1 L Hct 21.5 L MCV MCH 27 L MCHC RDW 20.3 H Plt Count Eos % (Auto) Eos # (Auto) Seg Neuts % (Manual) Lymphocytes % (Manual) Seg Neutrophils # Seg Neutrophils # Man Lymphocytes # (Manual) Monocytes # (Manual) PT INR D-Dimer ABG pH ABG pO2 ABG HCO3 ABG O2 Saturation ABG Base Excess ABG Hemoglobin Oxyhemoglobin Sodium 135 L Potassium Chloride 97.9 L Carbon Dioxide BUN 26 H Creatinine 0.5 L Glucose 138 H POC Glucose 115 H Lactic Acid Calcium 8.2 L Phosphorus Magnesium AST ALT Alkaline Phosphatase Lactate Dehydrogenase Troponin T C-Reactive Protein NT-Pro-B Natriuret Pep Total Protein Albumin LDL Cholesterol Direct Vitamin B12 Urine WBC (Auto) Fluid Glucose Fluid Total Protein Vancomycin Trough Crossmatch 12/12/21 12/12/21 12/12/21 04:30 05:10 11:51 WBC RBC Hgb Hct MCV MCH MCHC RDW Plt Count Eos % (Auto) Eos # (Auto) Seg Neuts % (Manual) Lymphocytes % (Manual) Seg Neutrophils # Seg Neutrophils # Man Lymphocytes # (Manual) Monocytes # (Manual) PT INR D-Dimer ABG pH ABG pO2 ABG HCO3 ABG O2 Saturation ABG Base Excess ABG Hemoglobin Oxyhemoglobin Sodium Potassium Chloride Carbon Dioxide BUN Creatinine Glucose POC Glucose 119 H 119 H Lactic Acid Calcium Phosphorus Magnesium AST ALT Alkaline Phosphatase Lactate Dehydrogenase Troponin T C-Reactive Protein NT-Pro-B Natriuret Pep Total Protein Albumin LDL Cholesterol Direct Vitamin B12 Urine WBC (Auto) Fluid Glucose Fluid Total Protein Vancomycin Trough Crossmatch See Detail 12/13/21 12/13/21 12/13/21 00:52 04:00 04:00 WBC RBC 2.73 L Hgb 7.4 L Hct 22.8 L MCV MCH 27 L MCHC RDW 20.5 H Plt Count Eos % (Auto) Eos # (Auto) Seg Neuts % (Manual) Lymphocytes % (Manual) Seg Neutrophils # Seg Neutrophils # Man Lymphocytes # (Manual) Monocytes # (Manual) PT INR D-Dimer ABG pH ABG pO2 ABG HCO3 ABG O2 Saturation ABG Base Excess ABG Hemoglobin Oxyhemoglobin Sodium 134 L Potassium Chloride 96.7 L Carbon Dioxide BUN 23 H Creatinine 0.5 L Glucose 131 H POC Glucose 131 H Lactic Acid Calcium 8.1 L Phosphorus Magnesium AST ALT Alkaline Phosphatase Lactate Dehydrogenase Troponin T C-Reactive Protein NT-Pro-B Natriuret Pep Total Protein Albumin LDL Cholesterol Direct Vitamin B12 Urine WBC (Auto) Fluid Glucose Fluid Total Protein Vancomycin Trough Crossmatch 12/13/21 12/13/21 12/13/21 05:23 12:11 17:18 WBC RBC Hgb Hct MCV MCH MCHC RDW Plt Count Eos % (Auto) Eos # (Auto) Seg Neuts % (Manual) Lymphocytes % (Manual) Seg Neutrophils # Seg Neutrophils # Man Lymphocytes # (Manual) Monocytes # (Manual) PT INR D-Dimer ABG pH ABG pO2 ABG HCO3 ABG O2 Saturation ABG Base Excess ABG Hemoglobin Oxyhemoglobin Sodium Potassium Chloride Carbon Dioxide BUN Creatinine Glucose POC Glucose 121 H 143 H 148 H Lactic Acid Calcium Phosphorus Magnesium AST ALT Alkaline Phosphatase Lactate Dehydrogenase Troponin T C-Reactive Protein NT-Pro-B Natriuret Pep Total Protein Albumin LDL Cholesterol Direct Vitamin B12 Urine WBC (Auto) Fluid Glucose Fluid Total Protein Vancomycin Trough Crossmatch 12/14/21 12/14/21 12/14/21 00:54 04:20 04:20 WBC RBC 2.39 L Hgb 6.5 L Hct 20.3 L MCV MCH 27 L MCHC RDW 20.3 H Plt Count Eos % (Auto) Eos # (Auto) Seg Neuts % (Manual) Lymphocytes % (Manual) Seg Neutrophils # Seg Neutrophils # Man Lymphocytes # (Manual) Monocytes # (Manual) PT INR D-Dimer ABG pH ABG pO2 ABG HCO3 ABG O2 Saturation ABG Base Excess ABG Hemoglobin Oxyhemoglobin Sodium 130 L Potassium Chloride 93.5 L Carbon Dioxide BUN 25 H Creatinine Glucose 123 H POC Glucose 123 H Lactic Acid Calcium 8.0 L Phosphorus Magnesium AST ALT Alkaline Phosphatase Lactate Dehydrogenase Troponin T C-Reactive Protein NT-Pro-B Natriuret Pep Total Protein Albumin LDL Cholesterol Direct Vitamin B12 Urine WBC (Auto) Fluid Glucose Fluid Total Protein Vancomycin Trough Crossmatch 12/14/21 12/14/21 12/14/21 05:06 08:17 10:30 WBC RBC Hgb Hct MCV MCH MCHC RDW Plt Count Eos % (Auto) Eos # (Auto) Seg Neuts % (Manual) Lymphocytes % (Manual) Seg Neutrophils # Seg Neutrophils # Man Lymphocytes # (Manual) Monocytes # (Manual) PT INR D-Dimer ABG pH ABG pO2 ABG HCO3 ABG O2 Saturation ABG Base Excess ABG Hemoglobin Oxyhemoglobin Sodium Potassium Chloride Carbon Dioxide BUN Creatinine Glucose POC Glucose 131 H 119 H Lactic Acid Calcium Phosphorus Magnesium AST ALT Alkaline Phosphatase Lactate Dehydrogenase Troponin T C-Reactive Protein NT-Pro-B Natriuret Pep Total Protein Albumin LDL Cholesterol Direct Vitamin B12 Urine WBC (Auto) Fluid Glucose Fluid Total Protein Vancomycin Trough Crossmatch See Detail 12/14/21 12/14/21 12/14/21 12:15 16:37 23:27 WBC RBC Hgb Hct MCV MCH MCHC RDW Plt Count Eos % (Auto) Eos # (Auto) Seg Neuts % (Manual) Lymphocytes % (Manual) Seg Neutrophils # Seg Neutrophils # Man Lymphocytes # (Manual) Monocytes # (Manual) PT INR D-Dimer ABG pH ABG pO2 ABG HCO3 ABG O2 Saturation ABG Base Excess ABG Hemoglobin Oxyhemoglobin Sodium Potassium Chloride Carbon Dioxide BUN Creatinine Glucose POC Glucose 147 H 141 H 130 H Lactic Acid Calcium Phosphorus Magnesium AST ALT Alkaline Phosphatase Lactate Dehydrogenase Troponin T C-Reactive Protein NT-Pro-B Natriuret Pep Total Protein Albumin LDL Cholesterol Direct Vitamin B12 Urine WBC (Auto) Fluid Glucose Fluid Total Protein Vancomycin Trough Crossmatch 12/15/21 12/15/21 12/15/21 05:00 07:00 07:00 WBC 12.3 H RBC 3.27 L Hgb 8.8 L Hct 27.5 L D MCV MCH 27 L MCHC RDW 19.0 H Plt Count Eos % (Auto) Eos # (Auto) Seg Neuts % (Manual) Lymphocytes % (Manual) Seg Neutrophils # Seg Neutrophils # Man Lymphocytes # (Manual) Monocytes # (Manual) PT INR D-Dimer ABG pH ABG pO2 ABG HCO3 ABG O2 Saturation ABG Base Excess ABG Hemoglobin Oxyhemoglobin Sodium 134 L Potassium Chloride 95.7 L Carbon Dioxide BUN 28 H Creatinine Glucose 129 H POC Glucose 129 H Lactic Acid Calcium 8.2 L Phosphorus Magnesium AST ALT Alkaline Phosphatase Lactate Dehydrogenase Troponin T C-Reactive Protein NT-Pro-B Natriuret Pep Total Protein Albumin LDL Cholesterol Direct Vitamin B12 Urine WBC (Auto) Fluid Glucose Fluid Total Protein Vancomycin Trough Crossmatch 12/15/21 12/15/21 12/15/21 11:18 16:00 23:39 WBC RBC Hgb Hct MCV MCH MCHC RDW Plt Count Eos % (Auto) Eos # (Auto) Seg Neuts % (Manual) Lymphocytes % (Manual) Seg Neutrophils # Seg Neutrophils # Man Lymphocytes # (Manual) Monocytes # (Manual) PT INR D-Dimer ABG pH ABG pO2 ABG HCO3 ABG O2 Saturation ABG Base Excess ABG Hemoglobin Oxyhemoglobin Sodium Potassium Chloride Carbon Dioxide BUN Creatinine Glucose POC Glucose 139 H 137 H 146 H Lactic Acid Calcium Phosphorus Magnesium AST ALT Alkaline Phosphatase Lactate Dehydrogenase Troponin T C-Reactive Protein NT-Pro-B Natriuret Pep Total Protein Albumin LDL Cholesterol Direct Vitamin B12 Urine WBC (Auto) Fluid Glucose Fluid Total Protein Vancomycin Trough Crossmatch 12/16/21 12/16/21 12/16/21 05:24 10:21 10:21 WBC 15.3 H RBC 3.24 L Hgb 8.9 L Hct 27.7 L MCV MCH MCHC RDW 19.0 H Plt Count Eos % (Auto) Eos # (Auto) Seg Neuts % (Manual) Lymphocytes % (Manual) Seg Neutrophils # Seg Neutrophils # Man Lymphocytes # (Manual) Monocytes # (Manual) PT INR D-Dimer ABG pH ABG pO2 ABG HCO3 ABG O2 Saturation ABG Base Excess ABG Hemoglobin Oxyhemoglobin Sodium 131 L Potassium 3.5 L Chloride 92.7 L Carbon Dioxide BUN 36 H Creatinine Glucose 160 H POC Glucose 121 H Lactic Acid Calcium Phosphorus Magnesium 1.60 L AST ALT Alkaline Phosphatase Lactate Dehydrogenase Troponin T C-Reactive Protein NT-Pro-B Natriuret Pep Total Protein Albumin LDL Cholesterol Direct Vitamin B12 Urine WBC (Auto) Fluid Glucose Fluid Total Protein Vancomycin Trough Crossmatch 12/16/21 12/16/21 12/16/21 11:21 18:28 20:52 WBC RBC Hgb Hct MCV MCH MCHC RDW Plt Count Eos % (Auto) Eos # (Auto) Seg Neuts % (Manual) Lymphocytes % (Manual) Seg Neutrophils # Seg Neutrophils # Man Lymphocytes # (Manual) Monocytes # (Manual) PT INR D-Dimer ABG pH 7.479 H ABG pO2 79.3 L ABG HCO3 27.3 H ABG O2 Saturation ABG Base Excess 3.6 H ABG Hemoglobin 9.1 L Oxyhemoglobin 94.9 L Sodium Potassium Chloride Carbon Dioxide BUN Creatinine Glucose POC Glucose 153 H 132 H Lactic Acid Calcium Phosphorus Magnesium AST ALT Alkaline Phosphatase Lactate Dehydrogenase Troponin T C-Reactive Protein NT-Pro-B Natriuret Pep Total Protein Albumin LDL Cholesterol Direct Vitamin B12 Urine WBC (Auto) Fluid Glucose Fluid Total Protein Vancomycin Trough Crossmatch 12/16/21 12/17/21 12/17/21 23:30 04:25 04:25 WBC 12.3 H RBC 2.16 L Hgb 6.0 L Hct 18.1 L* D MCV MCH MCHC RDW 19.4 H Plt Count Eos % (Auto) Eos # (Auto) Seg Neuts % (Manual) Lymphocytes % (Manual) Seg Neutrophils # Seg Neutrophils # Man Lymphocytes # (Manual) Monocytes # (Manual) PT INR D-Dimer ABG pH ABG pO2 ABG HCO3 ABG O2 Saturation ABG Base Excess ABG Hemoglobin Oxyhemoglobin Sodium 132 L Potassium 3.2 L Chloride 112.0 H Carbon Dioxide BUN 32 H Creatinine Glucose 122 H POC Glucose 137 H Lactic Acid Calcium 6.8 L D Phosphorus Magnesium AST ALT Alkaline Phosphatase Lactate Dehydrogenase Troponin T C-Reactive Protein NT-Pro-B Natriuret Pep Total Protein Albumin LDL Cholesterol Direct Vitamin B12 Urine WBC (Auto) Fluid Glucose Fluid Total Protein Vancomycin Trough Crossmatch 12/17/21 12/17/21 12/17/21 05:30 11:49 14:45 WBC RBC Hgb 9.7 L D Hct MCV MCH MCHC RDW Plt Count Eos % (Auto) Eos # (Auto) Seg Neuts % (Manual) Lymphocytes % (Manual) Seg Neutrophils # Seg Neutrophils # Man Lymphocytes # (Manual) Monocytes # (Manual) PT INR D-Dimer ABG pH ABG pO2 ABG HCO3 ABG O2 Saturation ABG Base Excess ABG Hemoglobin Oxyhemoglobin Sodium Potassium Chloride Carbon Dioxide BUN Creatinine Glucose POC Glucose 137 H 143 H Lactic Acid Calcium Phosphorus Magnesium AST ALT Alkaline Phosphatase Lactate Dehydrogenase Troponin T C-Reactive Protein NT-Pro-B Natriuret Pep Total Protein Albumin LDL Cholesterol Direct Vitamin B12 Urine WBC (Auto) Fluid Glucose Fluid Total Protein Vancomycin Trough Crossmatch 12/17/21 12/18/21 12/18/21 17:01 05:04 05:04 WBC 13.8 H RBC 3.44 L Hgb 9.9 L Hct 28.8 L MCV MCH MCHC RDW 18.1 H Plt Count Eos % (Auto) Eos # (Auto) Seg Neuts % (Manual) Lymphocytes % (Manual) Seg Neutrophils # Seg Neutrophils # Man Lymphocytes # (Manual) Monocytes # (Manual) PT INR D-Dimer ABG pH ABG pO2 ABG HCO3 ABG O2 Saturation ABG Base Excess ABG Hemoglobin Oxyhemoglobin Sodium 132 L Potassium Chloride 97.4 L Carbon Dioxide BUN 38 H Creatinine Glucose 134 H POC Glucose 132 H Lactic Acid Calcium Phosphorus Magnesium AST ALT Alkaline Phosphatase Lactate Dehydrogenase Troponin T C-Reactive Protein NT-Pro-B Natriuret Pep Total Protein Albumin LDL Cholesterol Direct Vitamin B12 Urine WBC (Auto) Fluid Glucose Fluid Total Protein Vancomycin Trough Crossmatch 12/18/21 12/18/21 12/18/21 05:28 10:57 16:27 WBC RBC Hgb Hct MCV MCH MCHC RDW Plt Count Eos % (Auto) Eos # (Auto) Seg Neuts % (Manual) Lymphocytes % (Manual) Seg Neutrophils # Seg Neutrophils # Man Lymphocytes # (Manual) Monocytes # (Manual) PT INR D-Dimer ABG pH ABG pO2 ABG HCO3 ABG O2 Saturation ABG Base Excess ABG Hemoglobin Oxyhemoglobin Sodium Potassium Chloride Carbon Dioxide BUN Creatinine Glucose POC Glucose 118 H 132 H 130 H Lactic Acid Calcium Phosphorus Magnesium AST ALT Alkaline Phosphatase Lactate Dehydrogenase Troponin T C-Reactive Protein NT-Pro-B Natriuret Pep Total Protein Albumin LDL Cholesterol Direct Vitamin B12 Urine WBC (Auto) Fluid Glucose Fluid Total Protein Vancomycin Trough Crossmatch 12/19/21 12/19/21 12/19/21 00:02 04:41 04:41 WBC 16.0 H RBC 3.45 L Hgb 9.7 L Hct 29.1 L MCV MCH MCHC RDW 17.8 H Plt Count Eos % (Auto) Eos # (Auto) Seg Neuts % (Manual) Lymphocytes % (Manual) Seg Neutrophils # Seg Neutrophils # Man Lymphocytes # (Manual) Monocytes # (Manual) PT INR D-Dimer ABG pH ABG pO2 ABG HCO3 ABG O2 Saturation ABG Base Excess ABG Hemoglobin Oxyhemoglobin Sodium 133 L Potassium Chloride 97.9 L Carbon Dioxide BUN 36 H Creatinine 0.5 L Glucose 126 H POC Glucose 127 H Lactic Acid Calcium 8.3 L Phosphorus Magnesium AST ALT Alkaline Phosphatase Lactate Dehydrogenase Troponin T C-Reactive Protein NT-Pro-B Natriuret Pep Total Protein Albumin LDL Cholesterol Direct Vitamin B12 Urine WBC (Auto) Fluid Glucose Fluid Total Protein Vancomycin Trough Crossmatch 12/19/21 12/19/21 12/19/21 05:26 12:20 16:43 WBC RBC Hgb Hct MCV MCH MCHC RDW Plt Count Eos % (Auto) Eos # (Auto) Seg Neuts % (Manual) Lymphocytes % (Manual) Seg Neutrophils # Seg Neutrophils # Man Lymphocytes # (Manual) Monocytes # (Manual) PT INR D-Dimer ABG pH ABG pO2 ABG HCO3 ABG O2 Saturation ABG Base Excess ABG Hemoglobin Oxyhemoglobin Sodium Potassium Chloride Carbon Dioxide BUN Creatinine Glucose POC Glucose 119 H 145 H 126 H Lactic Acid Calcium Phosphorus Magnesium AST ALT Alkaline Phosphatase Lactate Dehydrogenase Troponin T C-Reactive Protein NT-Pro-B Natriuret Pep Total Protein Albumin LDL Cholesterol Direct Vitamin B12 Urine WBC (Auto) Fluid Glucose Fluid Total Protein Vancomycin Trough Crossmatch 12/19/21 12/20/21 12/20/21 23:30 04:54 04:54 WBC 12.3 H RBC 3.54 L Hgb 10.0 L Hct 29.5 L MCV MCH MCHC RDW 17.8 H Plt Count Eos % (Auto) Eos # (Auto) Seg Neuts % (Manual) 88.0 H Lymphocytes % (Manual) 6.0 L Seg Neutrophils # Seg Neutrophils # Man 10.8 H Lymphocytes # (Manual) 0.7 L Monocytes # (Manual) PT INR D-Dimer ABG pH ABG pO2 ABG HCO3 ABG O2 Saturation ABG Base Excess ABG Hemoglobin Oxyhemoglobin Sodium 131 L Potassium Chloride 96.2 L Carbon Dioxide BUN 36 H Creatinine 0.5 L Glucose 130 H POC Glucose 117 H Lactic Acid Calcium Phosphorus Magnesium AST ALT Alkaline Phosphatase Lactate Dehydrogenase Troponin T C-Reactive Protein NT-Pro-B Natriuret Pep Total Protein Albumin LDL Cholesterol Direct Vitamin B12 Urine WBC (Auto) Fluid Glucose Fluid Total Protein Vancomycin Trough Crossmatch 12/20/21 12/20/21 12/20/21 05:20 11:51 17:30 WBC RBC Hgb Hct MCV MCH MCHC RDW Plt Count Eos % (Auto) Eos # (Auto) Seg Neuts % (Manual) Lymphocytes % (Manual) Seg Neutrophils # Seg Neutrophils # Man Lymphocytes # (Manual) Monocytes # (Manual) PT INR D-Dimer ABG pH ABG pO2 ABG HCO3 ABG O2 Saturation ABG Base Excess ABG Hemoglobin Oxyhemoglobin Sodium Potassium Chloride Carbon Dioxide BUN Creatinine Glucose POC Glucose 126 H 119 H 127 H Lactic Acid Calcium Phosphorus Magnesium AST ALT Alkaline Phosphatase Lactate Dehydrogenase Troponin T C-Reactive Protein NT-Pro-B Natriuret Pep Total Protein Albumin LDL Cholesterol Direct Vitamin B12 Urine WBC (Auto) Fluid Glucose Fluid Total Protein Vancomycin Trough Crossmatch 12/21/21 12/21/21 12/21/21 00:45 04:21 04:21 WBC RBC 3.47 L Hgb 9.4 L Hct 29.2 L MCV MCH 27 L MCHC RDW 18.1 H Plt Count Eos % (Auto) Eos # (Auto) Seg Neuts % (Manual) Lymphocytes % (Manual) Seg Neutrophils # Seg Neutrophils # Man Lymphocytes # (Manual) Monocytes # (Manual) PT INR D-Dimer ABG pH ABG pO2 ABG HCO3 ABG O2 Saturation ABG Base Excess ABG Hemoglobin Oxyhemoglobin Sodium 134 L Potassium Chloride Carbon Dioxide BUN 35 H Creatinine 0.5 L Glucose 122 H POC Glucose 125 H Lactic Acid Calcium 8.2 L Phosphorus Magnesium AST ALT Alkaline Phosphatase Lactate Dehydrogenase Troponin T C-Reactive Protein NT-Pro-B Natriuret Pep Total Protein Albumin LDL Cholesterol Direct Vitamin B12 Urine WBC (Auto) Fluid Glucose Fluid Total Protein Vancomycin Trough Crossmatch 12/21/21 12/21/21 12/21/21 05:38 11:29 16:16 WBC RBC Hgb Hct MCV MCH MCHC RDW Plt Count Eos % (Auto) Eos # (Auto) Seg Neuts % (Manual) Lymphocytes % (Manual) Seg Neutrophils # Seg Neutrophils # Man Lymphocytes # (Manual) Monocytes # (Manual) PT INR D-Dimer ABG pH ABG pO2 ABG HCO3 ABG O2 Saturation ABG Base Excess ABG Hemoglobin Oxyhemoglobin Sodium Potassium Chloride Carbon Dioxide BUN Creatinine Glucose POC Glucose 127 H 121 H 113 H Lactic Acid Calcium Phosphorus Magnesium AST ALT Alkaline Phosphatase Lactate Dehydrogenase Troponin T C-Reactive Protein NT-Pro-B Natriuret Pep Total Protein Albumin LDL Cholesterol Direct Vitamin B12 Urine WBC (Auto) Fluid Glucose Fluid Total Protein Vancomycin Trough Crossmatch 12/22/21 12/22/21 12/23/21 04:58 04:58 06:40 WBC 11.5 H RBC 3.43 L Hgb 9.8 L Hct 28.7 L MCV MCH MCHC RDW 18.5 H 17.9 H Plt Count Eos % (Auto) Eos # (Auto) Seg Neuts % (Manual) Lymphocytes % (Manual) Seg Neutrophils # Seg Neutrophils # Man Lymphocytes # (Manual) Monocytes # (Manual) PT INR D-Dimer ABG pH ABG pO2 ABG HCO3 ABG O2 Saturation ABG Base Excess ABG Hemoglobin Oxyhemoglobin Sodium 130 L Potassium Chloride 97.8 L Carbon Dioxide BUN 31 H Creatinine 0.5 L Glucose 122 H POC Glucose Lactic Acid Calcium 7.9 L Phosphorus Magnesium AST ALT Alkaline Phosphatase Lactate Dehydrogenase Troponin T C-Reactive Protein NT-Pro-B Natriuret Pep Total Protein Albumin LDL Cholesterol Direct Vitamin B12 Urine WBC (Auto) Fluid Glucose Fluid Total Protein Vancomycin Trough Crossmatch 12/23/21 12/23/21 12/24/21 06:40 23:25 04:24 WBC 11.7 H RBC Hgb 9.8 L Hct MCV MCH 26 L MCHC RDW 18.1 H Plt Count Eos % (Auto) Eos # (Auto) Seg Neuts % (Manual) Lymphocytes % (Manual) Seg Neutrophils # Seg Neutrophils # Man Lymphocytes # (Manual) Monocytes # (Manual) PT INR D-Dimer ABG pH ABG pO2 ABG HCO3 ABG O2 Saturation ABG Base Excess ABG Hemoglobin Oxyhemoglobin Sodium 136 L Potassium Chloride Carbon Dioxide BUN 27 H Creatinine 0.4 L Glucose 107 H POC Glucose 110 H Lactic Acid Calcium 8.1 L Phosphorus Magnesium AST ALT Alkaline Phosphatase Lactate Dehydrogenase Troponin T C-Reactive Protein NT-Pro-B Natriuret Pep Total Protein Albumin LDL Cholesterol Direct Vitamin B12 Urine WBC (Auto) Fluid Glucose Fluid Total Protein Vancomycin Trough Crossmatch 12/24/21 12/24/21 12/24/21 04:24 11:08 15:45 WBC RBC Hgb Hct MCV MCH MCHC RDW Plt Count Eos % (Auto) Eos # (Auto) Seg Neuts % (Manual) Lymphocytes % (Manual) Seg Neutrophils # Seg Neutrophils # Man Lymphocytes # (Manual) Monocytes # (Manual) PT INR D-Dimer ABG pH ABG pO2 ABG HCO3 ABG O2 Saturation ABG Base Excess ABG Hemoglobin Oxyhemoglobin Sodium 132 L Potassium Chloride Carbon Dioxide BUN 27 H Creatinine 0.3 L Glucose 108 H POC Glucose 116 H 107 H Lactic Acid Calcium Phosphorus Magnesium AST ALT Alkaline Phosphatase Lactate Dehydrogenase Troponin T C-Reactive Protein NT-Pro-B Natriuret Pep Total Protein Albumin LDL Cholesterol Direct Vitamin B12 Urine WBC (Auto) Fluid Glucose Fluid Total Protein Vancomycin Trough Crossmatch 12/24/21 12/25/21 12/25/21 23:43 05:29 11:48 WBC RBC Hgb Hct MCV MCH MCHC RDW Plt Count Eos % (Auto) Eos # (Auto) Seg Neuts % (Manual) Lymphocytes % (Manual) Seg Neutrophils # Seg Neutrophils # Man Lymphocytes # (Manual) Monocytes # (Manual) PT INR D-Dimer ABG pH ABG pO2 ABG HCO3 ABG O2 Saturation ABG Base Excess ABG Hemoglobin Oxyhemoglobin Sodium Potassium Chloride Carbon Dioxide BUN Creatinine Glucose POC Glucose 123 H 107 H 119 H Lactic Acid Calcium Phosphorus Magnesium AST ALT Alkaline Phosphatase Lactate Dehydrogenase Troponin T C-Reactive Protein NT-Pro-B Natriuret Pep Total Protein Albumin LDL Cholesterol Direct Vitamin B12 Urine WBC (Auto) Fluid Glucose Fluid Total Protein Vancomycin Trough Crossmatch 12/26/21 12/26/21 12/26/21 00:06 05:56 07:51 WBC 11.4 H RBC 3.40 L Hgb 9.3 L Hct 28.3 L MCV MCH 27 L MCHC RDW 18.2 H Plt Count Eos % (Auto) Eos # (Auto) Seg Neuts % (Manual) Lymphocytes % (Manual) Seg Neutrophils # Seg Neutrophils # Man Lymphocytes # (Manual) Monocytes # (Manual) PT INR D-Dimer ABG pH ABG pO2 ABG HCO3 ABG O2 Saturation ABG Base Excess ABG Hemoglobin Oxyhemoglobin Sodium Potassium Chloride Carbon Dioxide BUN Creatinine Glucose POC Glucose 133 H 107 H Lactic Acid Calcium Phosphorus Magnesium AST ALT Alkaline Phosphatase Lactate Dehydrogenase Troponin T C-Reactive Protein NT-Pro-B Natriuret Pep Total Protein Albumin LDL Cholesterol Direct Vitamin B12 Urine WBC (Auto) Fluid Glucose Fluid Total Protein Vancomycin Trough Crossmatch 12/26/21 12/26/21 12/26/21 07:51 11:43 17:06 WBC RBC Hgb Hct MCV MCH MCHC RDW Plt Count Eos % (Auto) Eos # (Auto) Seg Neuts % (Manual) Lymphocytes % (Manual) Seg Neutrophils # Seg Neutrophils # Man Lymphocytes # (Manual) Monocytes # (Manual) PT INR D-Dimer ABG pH ABG pO2 ABG HCO3 ABG O2 Saturation ABG Base Excess ABG Hemoglobin Oxyhemoglobin Sodium 136 L Potassium Chloride Carbon Dioxide BUN 25 H Creatinine 0.3 L Glucose 131 H POC Glucose 119 H 128 H Lactic Acid Calcium Phosphorus Magnesium AST ALT Alkaline Phosphatase Lactate Dehydrogenase Troponin T C-Reactive Protein NT-Pro-B Natriuret Pep Total Protein Albumin LDL Cholesterol Direct Vitamin B12 Urine WBC (Auto) Fluid Glucose Fluid Total Protein Vancomycin Trough Crossmatch 12/28/21 12/28/21 12/29/21 09:05 09:05 04:40 WBC RBC 3.19 L Hgb 8.9 L Hct 26.4 L MCV MCH 27 L MCHC RDW 18.4 H 17.9 H Plt Count Eos % (Auto) Eos # (Auto) Seg Neuts % (Manual) Lymphocytes % (Manual) Seg Neutrophils # Seg Neutrophils # Man Lymphocytes # (Manual) Monocytes # (Manual) PT INR D-Dimer ABG pH ABG pO2 ABG HCO3 ABG O2 Saturation ABG Base Excess ABG Hemoglobin Oxyhemoglobin Sodium 135 L Potassium Chloride 97.8 L Carbon Dioxide BUN 18 H Creatinine 0.3 L Glucose POC Glucose Lactic Acid Calcium Phosphorus Magnesium AST ALT Alkaline Phosphatase Lactate Dehydrogenase Troponin T C-Reactive Protein NT-Pro-B Natriuret Pep Total Protein Albumin LDL Cholesterol Direct Vitamin B12 Urine WBC (Auto) Fluid Glucose Fluid Total Protein Vancomycin Trough Crossmatch 12/29/21 12/29/21 12/30/21 04:40 12:47 04:05 WBC RBC 3.29 L Hgb 8.7 L Hct 27.6 L MCV MCH 27 L MCHC RDW 17.6 H Plt Count Eos % (Auto) Eos # (Auto) Seg Neuts % (Manual) Lymphocytes % (Manual) Seg Neutrophils # Seg Neutrophils # Man Lymphocytes # (Manual) Monocytes # (Manual) PT INR D-Dimer ABG pH ABG pO2 ABG HCO3 ABG O2 Saturation ABG Base Excess ABG Hemoglobin Oxyhemoglobin Sodium 136 L Potassium Chloride Carbon Dioxide BUN Creatinine 0.3 L Glucose POC Glucose 67 L Lactic Acid Calcium 8.3 L Phosphorus Magnesium AST ALT Alkaline Phosphatase Lactate Dehydrogenase Troponin T C-Reactive Protein NT-Pro-B Natriuret Pep Total Protein Albumin LDL Cholesterol Direct Vitamin B12 Urine WBC (Auto) Fluid Glucose Fluid Total Protein Vancomycin Trough Crossmatch 12/30/21 12/31/21 12/31/21 04:05 00:07 04:00 WBC RBC 3.05 L Hgb 8.5 L Hct 25.5 L MCV MCH MCHC RDW 18.2 H Plt Count Eos % (Auto) Eos # (Auto) Seg Neuts % (Manual) Lymphocytes % (Manual) Seg Neutrophils # Seg Neutrophils # Man Lymphocytes # (Manual) Monocytes # (Manual) PT INR D-Dimer ABG pH ABG pO2 ABG HCO3 ABG O2 Saturation ABG Base Excess ABG Hemoglobin Oxyhemoglobin Sodium 136 L Potassium 3.5 L Chloride Carbon Dioxide BUN Creatinine 0.4 L Glucose POC Glucose 139 H Lactic Acid Calcium Phosphorus Magnesium 1.50 L AST ALT Alkaline Phosphatase Lactate Dehydrogenase Troponin T C-Reactive Protein NT-Pro-B Natriuret Pep Total Protein Albumin LDL Cholesterol Direct Vitamin B12 Urine WBC (Auto) Fluid Glucose Fluid Total Protein Vancomycin Trough Crossmatch 12/31/21 12/31/21 12/31/21 04:00 04:52 11:23 WBC RBC Hgb Hct MCV MCH MCHC RDW Plt Count Eos % (Auto) Eos # (Auto) Seg Neuts % (Manual) Lymphocytes % (Manual) Seg Neutrophils # Seg Neutrophils # Man Lymphocytes # (Manual) Monocytes # (Manual) PT INR D-Dimer ABG pH ABG pO2 ABG HCO3 ABG O2 Saturation ABG Base Excess ABG Hemoglobin Oxyhemoglobin Sodium Potassium Chloride Carbon Dioxide BUN 19 H Creatinine 0.4 L Glucose 116 H POC Glucose 121 H 116 H Lactic Acid Calcium Phosphorus Magnesium AST ALT Alkaline Phosphatase Lactate Dehydrogenase Troponin T C-Reactive Protein NT-Pro-B Natriuret Pep Total Protein Albumin LDL Cholesterol Direct Vitamin B12 Urine WBC (Auto) Fluid Glucose Fluid Total Protein Vancomycin Trough Crossmatch 12/31/21 01/01/22 01/01/22 17:42 04:31 04:31 WBC RBC 2.83 L Hgb 7.7 L Hct 23.2 L MCV MCH 27 L MCHC RDW 18.3 H Plt Count Eos % (Auto) Eos # (Auto) Seg Neuts % (Manual) Lymphocytes % (Manual) Seg Neutrophils # Seg Neutrophils # Man Lymphocytes # (Manual) Monocytes # (Manual) PT INR D-Dimer ABG pH ABG pO2 ABG HCO3 ABG O2 Saturation ABG Base Excess ABG Hemoglobin Oxyhemoglobin Sodium 135 L Potassium Chloride 97.7 L Carbon Dioxide BUN 21 H Creatinine 0.5 L Glucose 127 H POC Glucose 107 H Lactic Acid Calcium 8.0 L Phosphorus Magnesium AST ALT Alkaline Phosphatase Lactate Dehydrogenase Troponin T C-Reactive Protein NT-Pro-B Natriuret Pep Total Protein Albumin LDL Cholesterol Direct Vitamin B12 Urine WBC (Auto) Fluid Glucose Fluid Total Protein Vancomycin Trough Crossmatch 01/01/22 01/01/22 01/01/22 05:24 11:25 18:11 WBC RBC Hgb Hct MCV MCH MCHC RDW Plt Count Eos % (Auto) Eos # (Auto) Seg Neuts % (Manual) Lymphocytes % (Manual) Seg Neutrophils # Seg Neutrophils # Man Lymphocytes # (Manual) Monocytes # (Manual) PT INR D-Dimer ABG pH ABG pO2 ABG HCO3 ABG O2 Saturation ABG Base Excess ABG Hemoglobin Oxyhemoglobin Sodium Potassium Chloride Carbon Dioxide BUN Creatinine Glucose POC Glucose 124 H 140 H 144 H Lactic Acid Calcium Phosphorus Magnesium AST ALT Alkaline Phosphatase Lactate Dehydrogenase Troponin T C-Reactive Protein NT-Pro-B Natriuret Pep Total Protein Albumin LDL Cholesterol Direct Vitamin B12 Urine WBC (Auto) Fluid Glucose Fluid Total Protein Vancomycin Trough Crossmatch 01/01/22 01/02/22 01/02/22 23:26 04:01 04:01 WBC RBC 2.57 L Hgb 7.1 L Hct 21.5 L MCV MCH MCHC RDW 18.1 H Plt Count Eos % (Auto) Eos # (Auto) Seg Neuts % (Manual) Lymphocytes % (Manual) Seg Neutrophils # Seg Neutrophils # Man Lymphocytes # (Manual) Monocytes # (Manual) PT INR D-Dimer ABG pH ABG pO2 ABG HCO3 ABG O2 Saturation ABG Base Excess ABG Hemoglobin Oxyhemoglobin Sodium 131 L Potassium 3.5 L Chloride 94.8 L Carbon Dioxide BUN 27 H Creatinine Glucose 121 H POC Glucose 121 H Lactic Acid Calcium Phosphorus Magnesium AST ALT Alkaline Phosphatase Lactate Dehydrogenase Troponin T C-Reactive Protein NT-Pro-B Natriuret Pep Total Protein Albumin LDL Cholesterol Direct Vitamin B12 Urine WBC (Auto) Fluid Glucose Fluid Total Protein Vancomycin Trough Crossmatch 01/02/22 01/02/22 01/02/22 05:30 11:10 16:08 WBC RBC Hgb Hct MCV MCH MCHC RDW Plt Count Eos % (Auto) Eos # (Auto) Seg Neuts % (Manual) Lymphocytes % (Manual) Seg Neutrophils # Seg Neutrophils # Man Lymphocytes # (Manual) Monocytes # (Manual) PT INR D-Dimer ABG pH ABG pO2 ABG HCO3 ABG O2 Saturation ABG Base Excess ABG Hemoglobin Oxyhemoglobin Sodium Potassium Chloride Carbon Dioxide BUN Creatinine Glucose POC Glucose 124 H 117 H 130 H Lactic Acid Calcium Phosphorus Magnesium AST ALT Alkaline Phosphatase Lactate Dehydrogenase Troponin T C-Reactive Protein NT-Pro-B Natriuret Pep Total Protein Albumin LDL Cholesterol Direct Vitamin B12 Urine WBC (Auto) Fluid Glucose Fluid Total Protein Vancomycin Trough Crossmatch 01/02/22 01/02/22 01/03/22 17:30 23:26 04:53 WBC RBC 2.82 L Hgb 7.7 L Hct 23.4 L MCV MCH 27 L MCHC RDW 18.0 H Plt Count Eos % (Auto) Eos # (Auto) Seg Neuts % (Manual) Lymphocytes % (Manual) Seg Neutrophils # Seg Neutrophils # Man Lymphocytes # (Manual) Monocytes # (Manual) PT INR D-Dimer ABG pH ABG pO2 ABG HCO3 ABG O2 Saturation ABG Base Excess ABG Hemoglobin Oxyhemoglobin Sodium Potassium Chloride Carbon Dioxide BUN Creatinine Glucose POC Glucose 114 H Lactic Acid Calcium Phosphorus Magnesium AST ALT Alkaline Phosphatase Lactate Dehydrogenase Troponin T C-Reactive Protein NT-Pro-B Natriuret Pep Total Protein Albumin LDL Cholesterol Direct Vitamin B12 Urine WBC (Auto) Fluid Glucose Fluid Total Protein Vancomycin Trough 22.8 H Crossmatch 01/03/22 01/03/22 01/03/22 04:53 06:23 17:35 WBC RBC Hgb Hct MCV MCH MCHC RDW Plt Count Eos % (Auto) Eos # (Auto) Seg Neuts % (Manual) Lymphocytes % (Manual) Seg Neutrophils # Seg Neutrophils # Man Lymphocytes # (Manual) Monocytes # (Manual) PT INR D-Dimer ABG pH ABG pO2 ABG HCO3 ABG O2 Saturation ABG Base Excess ABG Hemoglobin Oxyhemoglobin Sodium 133 L Potassium Chloride 96.2 L Carbon Dioxide BUN 30 H Creatinine Glucose 107 H POC Glucose 122 H 107 H Lactic Acid Calcium Phosphorus Magnesium AST ALT Alkaline Phosphatase Lactate Dehydrogenase Troponin T C-Reactive Protein NT-Pro-B Natriuret Pep Total Protein Albumin LDL Cholesterol Direct Vitamin B12 Urine WBC (Auto) Fluid Glucose Fluid Total Protein Vancomycin Trough Crossmatch 01/04/22 01/04/22 01/04/22 04:00 12:32 16:45 WBC RBC Hgb Hct MCV MCH MCHC RDW Plt Count Eos % (Auto) Eos # (Auto) Seg Neuts % (Manual) Lymphocytes % (Manual) Seg Neutrophils # Seg Neutrophils # Man Lymphocytes # (Manual) Monocytes # (Manual) PT INR D-Dimer ABG pH ABG pO2 ABG HCO3 ABG O2 Saturation ABG Base Excess ABG Hemoglobin Oxyhemoglobin Sodium 132 L Potassium Chloride 92.8 L Carbon Dioxide BUN 30 H Creatinine Glucose 115 H POC Glucose 111 H 111 H Lactic Acid Calcium Phosphorus Magnesium 1.60 L AST ALT Alkaline Phosphatase Lactate Dehydrogenase Troponin T C-Reactive Protein NT-Pro-B Natriuret Pep Total Protein Albumin LDL Cholesterol Direct Vitamin B12 Urine WBC (Auto) Fluid Glucose Fluid Total Protein Vancomycin Trough Crossmatch 01/05/22 01/05/22 01/05/22 04:30 04:30 17:04 WBC RBC 3.11 L Hgb 8.4 L Hct 25.5 L MCV MCH 27 L MCHC RDW 17.6 H Plt Count Eos % (Auto) Eos # (Auto) Seg Neuts % (Manual) Lymphocytes % (Manual) Seg Neutrophils # Seg Neutrophils # Man Lymphocytes # (Manual) Monocytes # (Manual) PT INR D-Dimer ABG pH ABG pO2 ABG HCO3 ABG O2 Saturation ABG Base Excess ABG Hemoglobin Oxyhemoglobin Sodium 135 L Potassium Chloride 93.6 L Carbon Dioxide BUN 29 H Creatinine Glucose POC Glucose 67 L Lactic Acid Calcium Phosphorus Magnesium AST ALT Alkaline Phosphatase Lactate Dehydrogenase Troponin T C-Reactive Protein NT-Pro-B Natriuret Pep Total Protein Albumin LDL Cholesterol Direct Vitamin B12 Urine WBC (Auto) Fluid Glucose Fluid Total Protein Vancomycin Trough Crossmatch 01/05/22 01/06/22 01/06/22 23:27 04:06 04:06 WBC RBC 2.89 L Hgb 7.7 L Hct 23.8 L MCV MCH 27 L MCHC RDW 18.0 H Plt Count Eos % (Auto) Eos # (Auto) Seg Neuts % (Manual) Lymphocytes % (Manual) Seg Neutrophils # Seg Neutrophils # Man Lymphocytes # (Manual) Monocytes # (Manual) PT 16.9 H INR 1.23 H D-Dimer ABG pH ABG pO2 ABG HCO3 ABG O2 Saturation ABG Base Excess ABG Hemoglobin Oxyhemoglobin Sodium Potassium Chloride Carbon Dioxide BUN Creatinine Glucose POC Glucose 110 H Lactic Acid Calcium Phosphorus Magnesium AST ALT Alkaline Phosphatase Lactate Dehydrogenase Troponin T C-Reactive Protein NT-Pro-B Natriuret Pep Total Protein Albumin LDL Cholesterol Direct Vitamin B12 Urine WBC (Auto) Fluid Glucose Fluid Total Protein Vancomycin Trough Crossmatch 01/06/22 01/06/22 01/06/22 04:06 13:40 23:41 WBC RBC Hgb Hct MCV MCH MCHC RDW Plt Count Eos % (Auto) Eos # (Auto) Seg Neuts % (Manual) Lymphocytes % (Manual) Seg Neutrophils # Seg Neutrophils # Man Lymphocytes # (Manual) Monocytes # (Manual) PT INR D-Dimer ABG pH ABG pO2 ABG HCO3 ABG O2 Saturation ABG Base Excess ABG Hemoglobin Oxyhemoglobin Sodium 132 L Potassium Chloride 92.3 L Carbon Dioxide BUN 26 H Creatinine Glucose 111 H POC Glucose 120 H Lactic Acid Calcium Phosphorus Magnesium AST ALT Alkaline Phosphatase Lactate Dehydrogenase Troponin T C-Reactive Protein NT-Pro-B Natriuret Pep Total Protein Albumin LDL Cholesterol Direct Vitamin B12 Urine WBC (Auto) Fluid Glucose 96 H Fluid Total Protein < 3.0 L Vancomycin Trough Crossmatch 01/07/22 01/07/22 01/07/22 05:20 11:30 17:00 WBC RBC Hgb Hct MCV MCH MCHC RDW Plt Count Eos % (Auto) Eos # (Auto) Seg Neuts % (Manual) Lymphocytes % (Manual) Seg Neutrophils # Seg Neutrophils # Man Lymphocytes # (Manual) Monocytes # (Manual) PT INR D-Dimer ABG pH ABG pO2 ABG HCO3 ABG O2 Saturation ABG Base Excess ABG Hemoglobin Oxyhemoglobin Sodium Potassium Chloride Carbon Dioxide BUN Creatinine Glucose POC Glucose 111 H 113 H 121 H Lactic Acid Calcium Phosphorus Magnesium AST ALT Alkaline Phosphatase Lactate Dehydrogenase Troponin T C-Reactive Protein NT-Pro-B Natriuret Pep Total Protein Albumin LDL Cholesterol Direct Vitamin B12 Urine WBC (Auto) Fluid Glucose Fluid Total Protein Vancomycin Trough Crossmatch 01/07/22 01/08/22 01/08/22 23:41 11:26 16:23 WBC RBC Hgb Hct MCV MCH MCHC RDW Plt Count Eos % (Auto) Eos # (Auto) Seg Neuts % (Manual) Lymphocytes % (Manual) Seg Neutrophils # Seg Neutrophils # Man Lymphocytes # (Manual) Monocytes # (Manual) PT INR D-Dimer ABG pH ABG pO2 ABG HCO3 ABG O2 Saturation ABG Base Excess ABG Hemoglobin Oxyhemoglobin Sodium Potassium Chloride Carbon Dioxide BUN Creatinine Glucose POC Glucose 110 H 129 H 118 H Lactic Acid Calcium Phosphorus Magnesium AST ALT Alkaline Phosphatase Lactate Dehydrogenase Troponin T C-Reactive Protein NT-Pro-B Natriuret Pep Total Protein Albumin LDL Cholesterol Direct Vitamin B12 Urine WBC (Auto) Fluid Glucose Fluid Total Protein Vancomycin Trough Crossmatch 01/09/22 01/10/22 01/10/22 18:13 00:27 04:00 WBC RBC Hgb Hct MCV MCH MCHC RDW Plt Count Eos % (Auto) Eos # (Auto) Seg Neuts % (Manual) Lymphocytes % (Manual) Seg Neutrophils # Seg Neutrophils # Man Lymphocytes # (Manual) Monocytes # (Manual) PT INR D-Dimer ABG pH ABG pO2 ABG HCO3 ABG O2 Saturation ABG Base Excess ABG Hemoglobin Oxyhemoglobin Sodium 133 L Potassium Chloride 92.6 L Carbon Dioxide 31 H BUN 29 H Creatinine 0.5 L Glucose 115 H POC Glucose 118 H 111 H Lactic Acid Calcium Phosphorus Magnesium AST ALT Alkaline Phosphatase Lactate Dehydrogenase Troponin T C-Reactive Protein NT-Pro-B Natriuret Pep Total Protein Albumin LDL Cholesterol Direct Vitamin B12 Urine WBC (Auto) Fluid Glucose Fluid Total Protein Vancomycin Trough Crossmatch 01/10/22 01/11/22 01/11/22 05:47 05:10 11:14 WBC RBC Hgb Hct MCV MCH MCHC RDW Plt Count Eos % (Auto) Eos # (Auto) Seg Neuts % (Manual) Lymphocytes % (Manual) Seg Neutrophils # Seg Neutrophils # Man Lymphocytes # (Manual) Monocytes # (Manual) PT INR D-Dimer ABG pH ABG pO2 ABG HCO3 ABG O2 Saturation ABG Base Excess ABG Hemoglobin Oxyhemoglobin Sodium Potassium Chloride Carbon Dioxide BUN Creatinine Glucose POC Glucose 106 H 118 H 136 H Lactic Acid Calcium Phosphorus Magnesium AST ALT Alkaline Phosphatase Lactate Dehydrogenase Troponin T C-Reactive Protein NT-Pro-B Natriuret Pep Total Protein Albumin LDL Cholesterol Direct Vitamin B12 Urine WBC (Auto) Fluid Glucose Fluid Total Protein Vancomycin Trough Crossmatch 01/11/22 01/11/22 01/12/22 17:14 23:52 05:39 WBC RBC Hgb Hct MCV MCH MCHC RDW Plt Count Eos % (Auto) Eos # (Auto) Seg Neuts % (Manual) Lymphocytes % (Manual) Seg Neutrophils # Seg Neutrophils # Man Lymphocytes # (Manual) Monocytes # (Manual) PT INR D-Dimer ABG pH ABG pO2 ABG HCO3 ABG O2 Saturation ABG Base Excess ABG Hemoglobin Oxyhemoglobin Sodium Potassium Chloride Carbon Dioxide BUN Creatinine Glucose POC Glucose 117 H 110 H 110 H Lactic Acid Calcium Phosphorus Magnesium AST ALT Alkaline Phosphatase Lactate Dehydrogenase Troponin T C-Reactive Protein NT-Pro-B Natriuret Pep Total Protein Albumin LDL Cholesterol Direct Vitamin B12 Urine WBC (Auto) Fluid Glucose Fluid Total Protein Vancomycin Trough Crossmatch 01/13/22 01/13/22 01/14/22 11:15 17:21 05:33 WBC RBC Hgb Hct MCV MCH MCHC RDW Plt Count Eos % (Auto) Eos # (Auto) Seg Neuts % (Manual) Lymphocytes % (Manual) Seg Neutrophils # Seg Neutrophils # Man Lymphocytes # (Manual) Monocytes # (Manual) PT INR D-Dimer ABG pH ABG pO2 ABG HCO3 ABG O2 Saturation ABG Base Excess ABG Hemoglobin Oxyhemoglobin Sodium Potassium Chloride Carbon Dioxide BUN Creatinine Glucose POC Glucose 113 H 121 H 136 H Lactic Acid Calcium Phosphorus Magnesium AST ALT Alkaline Phosphatase Lactate Dehydrogenase Troponin T C-Reactive Protein NT-Pro-B Natriuret Pep Total Protein Albumin LDL Cholesterol Direct Vitamin B12 Urine WBC (Auto) Fluid Glucose Fluid Total Protein Vancomycin Trough Crossmatch 01/14/22 01/15/22 01/15/22 11:28 00:13 05:24 WBC RBC Hgb Hct MCV MCH MCHC RDW Plt Count Eos % (Auto) Eos # (Auto) Seg Neuts % (Manual) Lymphocytes % (Manual) Seg Neutrophils # Seg Neutrophils # Man Lymphocytes # (Manual) Monocytes # (Manual) PT INR D-Dimer ABG pH ABG pO2 ABG HCO3 ABG O2 Saturation ABG Base Excess ABG Hemoglobin Oxyhemoglobin Sodium Potassium Chloride Carbon Dioxide BUN Creatinine Glucose POC Glucose 117 H 109 H 117 H Lactic Acid Calcium Phosphorus Magnesium AST ALT Alkaline Phosphatase Lactate Dehydrogenase Troponin T C-Reactive Protein NT-Pro-B Natriuret Pep Total Protein Albumin LDL Cholesterol Direct Vitamin B12 Urine WBC (Auto) Fluid Glucose Fluid Total Protein Vancomycin Trough Crossmatch 01/15/22 01/15/22 01/15/22 11:38 14:36 17:05 WBC RBC 3.11 L Hgb 8.4 L Hct 25.7 L MCV MCH 27 L MCHC RDW 17.2 H Plt Count Eos % (Auto) Eos # (Auto) Seg Neuts % (Manual) 82.0 H Lymphocytes % (Manual) 11.0 L Seg Neutrophils # Seg Neutrophils # Man 8.8 H Lymphocytes # (Manual) Monocytes # (Manual) PT INR D-Dimer ABG pH ABG pO2 ABG HCO3 ABG O2 Saturation ABG Base Excess ABG Hemoglobin Oxyhemoglobin Sodium Potassium Chloride Carbon Dioxide BUN Creatinine Glucose POC Glucose 107 H 108 H Lactic Acid Calcium Phosphorus Magnesium AST ALT Alkaline Phosphatase Lactate Dehydrogenase Troponin T C-Reactive Protein NT-Pro-B Natriuret Pep Total Protein Albumin LDL Cholesterol Direct Vitamin B12 Urine WBC (Auto) Fluid Glucose Fluid Total Protein Vancomycin Trough Crossmatch 01/15/22 01/15/22 01/15/22 21:07 Unknown Unknown WBC RBC 2.97 L Hgb 8.0 L Hct 24.3 L MCV MCH 27 L MCHC RDW 17.2 H Plt Count Eos % (Auto) Eos # (Auto) Seg Neuts % (Manual) Lymphocytes % (Manual) Seg Neutrophils # Seg Neutrophils # Man Lymphocytes # (Manual) Monocytes # (Manual) PT INR D-Dimer ABG pH ABG pO2 ABG HCO3 ABG O2 Saturation ABG Base Excess ABG Hemoglobin Oxyhemoglobin Sodium 131 L Potassium Chloride 93.1 L Carbon Dioxide BUN 27 H Creatinine Glucose 110 H POC Glucose Lactic Acid Calcium 8.3 L Phosphorus Magnesium AST ALT Alkaline Phosphatase Lactate Dehydrogenase Troponin T 0.088 H C-Reactive Protein NT-Pro-B Natriuret Pep Total Protein Albumin LDL Cholesterol Direct 44 L Vitamin B12 Urine WBC (Auto) Fluid Glucose Fluid Total Protein Vancomycin Trough Crossmatch 01/15/22 01/16/22 01/16/22 Unknown 05:21 12:59 WBC RBC Hgb Hct MCV MCH MCHC RDW Plt Count Eos % (Auto) Eos # (Auto) Seg Neuts % (Manual) Lymphocytes % (Manual) Seg Neutrophils # Seg Neutrophils # Man Lymphocytes # (Manual) Monocytes # (Manual) PT INR D-Dimer ABG pH ABG pO2 ABG HCO3 ABG O2 Saturation ABG Base Excess ABG Hemoglobin Oxyhemoglobin Sodium 134 L 134 L Potassium 3.4 L Chloride 93.9 L 95.4 L Carbon Dioxide BUN 26 H 24 H Creatinine Glucose 168 H POC Glucose 159 H Lactic Acid Calcium 8.1 L Phosphorus Magnesium AST ALT Alkaline Phosphatase Lactate Dehydrogenase Troponin T 0.078 H C-Reactive Protein NT-Pro-B Natriuret Pep Total Protein Albumin LDL Cholesterol Direct Vitamin B12 Urine WBC (Auto) Fluid Glucose Fluid Total Protein Vancomycin Trough Crossmatch 01/16/22 01/17/22 01/17/22 23:22 05:20 14:24 WBC RBC Hgb Hct MCV MCH MCHC RDW Plt Count Eos % (Auto) Eos # (Auto) Seg Neuts % (Manual) Lymphocytes % (Manual) Seg Neutrophils # Seg Neutrophils # Man Lymphocytes # (Manual) Monocytes # (Manual) PT INR D-Dimer ABG pH ABG pO2 55.0 L ABG HCO3 29.5 H ABG O2 Saturation 87.8 L ABG Base Excess 4.5 H ABG Hemoglobin 9.3 L Oxyhemoglobin 86.1 L Sodium Potassium Chloride Carbon Dioxide BUN Creatinine Glucose POC Glucose 113 H 111 H Lactic Acid Calcium Phosphorus Magnesium AST ALT Alkaline Phosphatase Lactate Dehydrogenase Troponin T C-Reactive Protein NT-Pro-B Natriuret Pep Total Protein Albumin LDL Cholesterol Direct Vitamin B12 Urine WBC (Auto) Fluid Glucose Fluid Total Protein Vancomycin Trough Crossmatch 01/17/22 01/18/22 01/18/22 17:14 05:39 11:53 WBC RBC Hgb Hct MCV MCH MCHC RDW Plt Count Eos % (Auto) Eos # (Auto) Seg Neuts % (Manual) Lymphocytes % (Manual) Seg Neutrophils # Seg Neutrophils # Man Lymphocytes # (Manual) Monocytes # (Manual) PT INR D-Dimer ABG pH ABG pO2 ABG HCO3 ABG O2 Saturation ABG Base Excess ABG Hemoglobin Oxyhemoglobin Sodium Potassium Chloride Carbon Dioxide BUN Creatinine Glucose POC Glucose 126 H 108 H 113 H Lactic Acid Calcium Phosphorus Magnesium AST ALT Alkaline Phosphatase Lactate Dehydrogenase Troponin T C-Reactive Protein NT-Pro-B Natriuret Pep Total Protein Albumin LDL Cholesterol Direct Vitamin B12 Urine WBC (Auto) Fluid Glucose Fluid Total Protein Vancomycin Trough Crossmatch 01/18/22 01/19/22 01/19/22 12:50 00:04 04:50 WBC RBC 3.14 L Hgb 8.4 L Hct 26.0 L MCV MCH 27 L MCHC RDW 18.2 H Plt Count Eos % (Auto) Eos # (Auto) Seg Neuts % (Manual) Lymphocytes % (Manual) Seg Neutrophils # Seg Neutrophils # Man Lymphocytes # (Manual) Monocytes # (Manual) PT INR D-Dimer ABG pH ABG pO2 112.3 H ABG HCO3 30.9 H ABG O2 Saturation ABG Base Excess 5.8 H ABG Hemoglobin 8.8 L Oxyhemoglobin Sodium Potassium Chloride Carbon Dioxide BUN Creatinine Glucose POC Glucose 115 H Lactic Acid Calcium Phosphorus Magnesium AST ALT Alkaline Phosphatase Lactate Dehydrogenase Troponin T C-Reactive Protein NT-Pro-B Natriuret Pep Total Protein Albumin LDL Cholesterol Direct Vitamin B12 Urine WBC (Auto) Fluid Glucose Fluid Total Protein Vancomycin Trough Crossmatch 01/19/22 01/19/22 01/19/22 04:50 11:51 20:45 WBC RBC Hgb Hct MCV MCH MCHC RDW Plt Count Eos % (Auto) Eos # (Auto) Seg Neuts % (Manual) Lymphocytes % (Manual) Seg Neutrophils # Seg Neutrophils # Man Lymphocytes # (Manual) Monocytes # (Manual) PT INR D-Dimer ABG pH ABG pO2 95.2 H ABG HCO3 29.8 H ABG O2 Saturation ABG Base Excess 4.3 H ABG Hemoglobin 8.0 L Oxyhemoglobin Sodium 134 L Potassium Chloride 95.4 L Carbon Dioxide BUN 28 H Creatinine Glucose POC Glucose 111 H Lactic Acid Calcium Phosphorus Magnesium AST ALT Alkaline Phosphatase Lactate Dehydrogenase Troponin T C-Reactive Protein NT-Pro-B Natriuret Pep Total Protein Albumin LDL Cholesterol Direct Vitamin B12 Urine WBC (Auto) Fluid Glucose Fluid Total Protein Vancomycin Trough Crossmatch 01/20/22 01/21/22 01/22/22 11:43 23:32 11:12 WBC RBC Hgb Hct MCV MCH MCHC RDW Plt Count Eos % (Auto) Eos # (Auto) Seg Neuts % (Manual) Lymphocytes % (Manual) Seg Neutrophils # Seg Neutrophils # Man Lymphocytes # (Manual) Monocytes # (Manual) PT INR D-Dimer ABG pH ABG pO2 ABG HCO3 ABG O2 Saturation ABG Base Excess ABG Hemoglobin Oxyhemoglobin Sodium Potassium Chloride Carbon Dioxide BUN Creatinine Glucose POC Glucose 118 H 113 H 110 H Lactic Acid Calcium Phosphorus Magnesium AST ALT Alkaline Phosphatase Lactate Dehydrogenase Troponin T C-Reactive Protein NT-Pro-B Natriuret Pep Total Protein Albumin LDL Cholesterol Direct Vitamin B12 Urine WBC (Auto) Fluid Glucose Fluid Total Protein Vancomycin Trough Crossmatch 01/22/22 01/23/22 01/23/22 17:54 09:36 11:49 WBC RBC Hgb Hct MCV MCH MCHC RDW Plt Count Eos % (Auto) Eos # (Auto) Seg Neuts % (Manual) Lymphocytes % (Manual) Seg Neutrophils # Seg Neutrophils # Man Lymphocytes # (Manual) Monocytes # (Manual) PT INR D-Dimer ABG pH ABG pO2 ABG HCO3 ABG O2 Saturation ABG Base Excess ABG Hemoglobin Oxyhemoglobin Sodium Potassium Chloride Carbon Dioxide BUN Creatinine Glucose POC Glucose 115 H 194 H Lactic Acid Calcium Phosphorus Magnesium AST ALT Alkaline Phosphatase Lactate Dehydrogenase Troponin T C-Reactive Protein NT-Pro-B Natriuret Pep Total Protein Albumin LDL Cholesterol Direct Vitamin B12 Urine WBC (Auto) 16.0 H Fluid Glucose Fluid Total Protein Vancomycin Trough Crossmatch 01/23/22 01/24/22 01/24/22 11:50 05:37 11:56 WBC RBC Hgb Hct MCV MCH MCHC RDW Plt Count Eos % (Auto) Eos # (Auto) Seg Neuts % (Manual) Lymphocytes % (Manual) Seg Neutrophils # Seg Neutrophils # Man Lymphocytes # (Manual) Monocytes # (Manual) PT INR D-Dimer ABG pH 7.310 L ABG pO2 43.9 L ABG HCO3 28.0 H ABG O2 Saturation 70.8 L ABG Base Excess ABG Hemoglobin 9.3 L Oxyhemoglobin 69.2 L Sodium Potassium Chloride Carbon Dioxide BUN Creatinine Glucose POC Glucose 118 H 119 H Lactic Acid Calcium Phosphorus Magnesium AST ALT Alkaline Phosphatase Lactate Dehydrogenase Troponin T C-Reactive Protein NT-Pro-B Natriuret Pep Total Protein Albumin LDL Cholesterol Direct Vitamin B12 Urine WBC (Auto) Fluid Glucose Fluid Total Protein Vancomycin Trough Crossmatch 01/25/22 01/25/22 01/26/22 12:20 13:17 05:59 WBC RBC Hgb Hct MCV MCH MCHC RDW Plt Count Eos % (Auto) Eos # (Auto) Seg Neuts % (Manual) Lymphocytes % (Manual) Seg Neutrophils # Seg Neutrophils # Man Lymphocytes # (Manual) Monocytes # (Manual) PT INR D-Dimer ABG pH 7.488 H ABG pO2 58.9 L ABG HCO3 28.3 H ABG O2 Saturation 94.9 L ABG Base Excess 4.7 H ABG Hemoglobin 8.7 L Oxyhemoglobin 92.7 L Sodium Potassium Chloride Carbon Dioxide BUN Creatinine Glucose POC Glucose 126 H 130 H Lactic Acid Calcium Phosphorus Magnesium AST ALT Alkaline Phosphatase Lactate Dehydrogenase Troponin T C-Reactive Protein NT-Pro-B Natriuret Pep Total Protein Albumin LDL Cholesterol Direct Vitamin B12 Urine WBC (Auto) Fluid Glucose Fluid Total Protein Vancomycin Trough Crossmatch 01/26/22 01/26/22 01/26/22 10:16 10:16 11:49 WBC 12.7 H RBC Hgb 9.9 L Hct MCV MCH 27 L MCHC RDW 18.3 H Plt Count Eos % (Auto) 4.5 H Eos # (Auto) 0.6 H Seg Neuts % (Manual) Lymphocytes % (Manual) Seg Neutrophils # 8.2 H Seg Neutrophils # Man Lymphocytes # (Manual) Monocytes # (Manual) PT INR D-Dimer ABG pH ABG pO2 ABG HCO3 ABG O2 Saturation ABG Base Excess ABG Hemoglobin Oxyhemoglobin Sodium Potassium Chloride 96.6 L Carbon Dioxide BUN 29 H Creatinine Glucose 140 H POC Glucose 161 H Lactic Acid Calcium Phosphorus Magnesium AST ALT Alkaline Phosphatase Lactate Dehydrogenase Troponin T C-Reactive Protein NT-Pro-B Natriuret Pep Total Protein Albumin LDL Cholesterol Direct Vitamin B12 Urine WBC (Auto) Fluid Glucose Fluid Total Protein Vancomycin Trough Crossmatch 01/27/22 01/27/22 01/27/22 00:22 12:48 23:08 WBC RBC Hgb Hct MCV MCH MCHC RDW Plt Count Eos % (Auto) Eos # (Auto) Seg Neuts % (Manual) Lymphocytes % (Manual) Seg Neutrophils # Seg Neutrophils # Man Lymphocytes # (Manual) Monocytes # (Manual) PT INR D-Dimer ABG pH ABG pO2 ABG HCO3 ABG O2 Saturation ABG Base Excess ABG Hemoglobin Oxyhemoglobin Sodium Potassium Chloride Carbon Dioxide BUN Creatinine Glucose POC Glucose 107 H 131 H 109 H Lactic Acid Calcium Phosphorus Magnesium AST ALT Alkaline Phosphatase Lactate Dehydrogenase Troponin T C-Reactive Protein NT-Pro-B Natriuret Pep Total Protein Albumin LDL Cholesterol Direct Vitamin B12 Urine WBC (Auto) Fluid Glucose Fluid Total Protein Vancomycin Trough Crossmatch 01/29/22 01/29/22 01/29/22 04:40 05:52 11:26 WBC RBC Hgb Hct MCV MCH MCHC RDW Plt Count Eos % (Auto) Eos # (Auto) Seg Neuts % (Manual) Lymphocytes % (Manual) Seg Neutrophils # Seg Neutrophils # Man Lymphocytes # (Manual) Monocytes # (Manual) PT INR D-Dimer ABG pH ABG pO2 ABG HCO3 ABG O2 Saturation ABG Base Excess ABG Hemoglobin Oxyhemoglobin Sodium Potassium Chloride 95.9 L Carbon Dioxide BUN 36 H Creatinine Glucose 127 H POC Glucose 108 H 119 H Lactic Acid Calcium Phosphorus Magnesium AST ALT Alkaline Phosphatase Lactate Dehydrogenase Troponin T C-Reactive Protein NT-Pro-B Natriuret Pep Total Protein Albumin LDL Cholesterol Direct Vitamin B12 Urine WBC (Auto) Fluid Glucose Fluid Total Protein Vancomycin Trough Crossmatch 01/30/22 01/30/22 01/30/22 05:29 12:44 23:34 WBC RBC Hgb Hct MCV MCH MCHC RDW Plt Count Eos % (Auto) Eos # (Auto) Seg Neuts % (Manual) Lymphocytes % (Manual) Seg Neutrophils # Seg Neutrophils # Man Lymphocytes # (Manual) Monocytes # (Manual) PT INR D-Dimer ABG pH ABG pO2 ABG HCO3 ABG O2 Saturation ABG Base Excess ABG Hemoglobin Oxyhemoglobin Sodium Potassium Chloride Carbon Dioxide BUN Creatinine Glucose POC Glucose 109 H 108 H 109 H Lactic Acid Calcium Phosphorus Magnesium AST ALT Alkaline Phosphatase Lactate Dehydrogenase Troponin T C-Reactive Protein NT-Pro-B Natriuret Pep Total Protein Albumin LDL Cholesterol Direct Vitamin B12 Urine WBC (Auto) Fluid Glucose Fluid Total Protein Vancomycin Trough Crossmatch 01/31/22 01/31/22 02/01/22 04:08 05:12 04:00 WBC RBC Hgb Hct MCV MCH MCHC RDW Plt Count Eos % (Auto) Eos # (Auto) Seg Neuts % (Manual) Lymphocytes % (Manual) Seg Neutrophils # Seg Neutrophils # Man Lymphocytes # (Manual) Monocytes # (Manual) PT INR D-Dimer ABG pH ABG pO2 ABG HCO3 ABG O2 Saturation ABG Base Excess ABG Hemoglobin Oxyhemoglobin Sodium 136 L 136 L Potassium Chloride 97.6 L 94.1 L Carbon Dioxide BUN 41 H 41 H Creatinine Glucose 120 H 118 H POC Glucose 111 H Lactic Acid Calcium Phosphorus Magnesium AST ALT Alkaline Phosphatase Lactate Dehydrogenase Troponin T C-Reactive Protein NT-Pro-B Natriuret Pep Total Protein Albumin LDL Cholesterol Direct Vitamin B12 Urine WBC (Auto) Fluid Glucose Fluid Total Protein Vancomycin Trough Crossmatch Allied health notes reviewed: nursing
[2022-02-01] MEDS: ALPRAZolam 0.5 MG TAB FEEDTUBE PRN (17:40)
[2022-02-01] MEDS: traZODone 50 MG TAB PO SCH (21:02)
[2022-02-01] MEDS: MELATONIN 5 MG TAB PO SCH (21:03)
[2022-02-01] MEDS: PRAVASTATIN 20 MG TAB FEEDTUBE SCH (21:03)
[2022-02-02] MEDS: ALPRAZolam 0.5 MG TAB FEEDTUBE PRN ×2 (03:31→23:58)
[2022-02-02] MEDS: LEVOTHYROXINE 125 MCG TAB FEEDTUBE SCH (05:08)
[2022-02-02] MEDS: SUCRALFATE 1 GM/10 ML ORAL LIQD FEEDTUBE SCH ×4 (05:08→23:52)
--- NOTE | 2022-02-02 08:29 | Progress Note ---
Assessment and Plan Assessment and plan: This is an 82-year-old female with DM, HTN , CHB s/p PPM, CAD s/p PCI and arthritis who presented to the emergency department on 11/04 for shortness of breath ongoing for the past 3 days, cough and according to family a fever of 102.2. Upon arrival of EMS patient was found to be tachypneic and hypoxic with SPO2 of 76% on room air which later improved to 88% on nonrebreather. Work-up in the emergency department included a CXR which showed bilateral interstitial pulmonary edema with bilateral pleural effusions and bibasilar opacities, leukocytosis and anemia with a hemoglobin of 6.1. Patient was admitted to the hospitalist service with acute anemia, acute hypoxic respiratory failure, bilateral pneumonia and COVID-19 PUI with consults to pulmonology, infectious disease and later cardiology. Patient was eventually intubated in the emergency department on 11/06. Hospital Course to date: 11/04/2021: Empiric therapy with iv levaquin/vancomycin. COVID PCR pending. Will consult ID. PCCM consulted, will follow recs. Hypotensive this AM, ordered bolus and fluids at 150 cc/hr. May require pressor support if bp does not improve. 11/05/2021: GBS on bcx +, currently on rocephin IV. Currently on bipap due to respiratory distress overnight. Worsening BL opacities on CXR. May be volume overload vs pneumonia. Unfortunately bp too low for lasix at this point. WIll continue levophed and bipap. Once able to tolerate, may do trial of albumin/lasix. Call attempt made to Niraj, no response. Will try again tomorrow to update. 11/06/2021: Decompensated overnight requiring intubation. CXR shows worsening interstitial infiltrates. Currenlty on dopamine, levophed, vasopressin. PICC line ordered. Advised RN to place gamble for I/O monitoring. Would benefit from diuresis but very volume overloaded. Prognosis guarded 11/08: Off sedation this am, remains unresponsive only grimace to pain. Hold all sedatives agents for now, patient is off pressors this am. Hypernatremia from today's lab- D5W X1bag, and low K repleted, repeat lab in the am. Severe constipation also noted from KUB, BR added. 11/09: Sudden SPO2 drop in the 60s this am. Patient was manually bagged and deep suctioned. Patient is currently stable on the vent, repeat CXR with no significant change. D/w CCM Mucomyst and brochodilator added. Patient mentation is unchanged, continue to hold off on sedative agents. Neurology consulted. 11/10: Acute DVT noted on bilateral lower extremity Doppler ultrasound therefore she was started on Lovenox treatment dose. Failed SBT. Hypernatremia and hyperchloremia noted, free water flush adjusted. 11/11: Patient noted to be febrile with increasing of the cytosis, UA/BC sent and CXR ordered. ID escalated antibiotics to cefepime. CXR demonstrated mucous plug, bedside bronchoscopy was performed and O ETT was changed over bougie from 6 cm to 7.5. Patient was noted to have a pneumothorax postprocedure and chest tube was placed. Family updated by [facility]. Free water flush increased and will add Jaswant supplementation. 11/12: Patient not noted to follow commands, hypernatremia worsen/persist, increasing free water flush, potassium and magnesium and phosphorus repleted. Hemoglobin noted to be 7./24.5 from 7.03/12 yesterday. We will continue to trend and monitor. Vent changes per [facility]. Repeat CXR showed no residual pneumothorax. Consider waterseal tomorrow. Given persistent leukocytosis antibiotics escalated to cefepime per ID. 11/13: Remains on cefepime and vancomycin, vent changes per [facility]. Anemia noted and given 1 unit PRBC. And beta-charleen held in setting of Levophed drip infusing. Remains on fentanyl drip. 11/14: Patient put on CPAP trial by [facility], will continue chest tube until after extubation. Will rest on assist control. CT brain was cancelled by radiologic technologist mammogram and reordered. 11/15: Patient removed chest tube overnight. Will obtain cxr. remains on low dose levo. CTH completed with no acute findings. RT to place on CPAP. 11/16: Hypernatremia/hyperchloremia noted on the increase of day water flushes. Anemia noted and ordered PRBC. asked RT to place on cpap but not done yet 11/17: Patient remains on the vent, awake and following commands. H&H stable s/p 2units PRBCs. GI on consult, no intervention at this time. Will continue protonix gtt and serial H&H Q6hrs. Keep patient NPO for now, D5w added for hypernatremia and NPO status. Plan for IVC filter placement today by Vascular. 11/18: Patient is s/p IVC filter. H&H continue to trend down, hbg 6.1 this am, 1 unit of PRBCs ordered. Plan for possible EGD today by GI. Keep patient NPO, continue PPI drip and serial H&H Q6hrs. Electrolytes repleted, repeat lab in the am 11/19: S/p EGD- larger duodenal ulcer noted, see operative note. GI recommendations noted also noted. H&H stable this am. Keep patient on protonix gtt for now. Will keep patient NPO, continue IVF and serial H&H for now. Electrolytes repleted, repeat labs in the am 11/20: Very agitated and restless this am, fentanyl gtt resumed. Patient remains on protonix gtt, H&H remains stable. Will switch protonix gtt to IV BID, continue carafate and okay to resume meds at this time. Will F/u with GI to see if TF can be resumed. Gamble was reinserted overnight for retention. Electrolytes repleted, repeat in the am. Plan for possible PST today for possible extubation per CCM. 11/21: Patient is now on seroquel and patient's home buspar resumed. Patient more calm this morning, fentanyl gtt is off. H&H remains stable and patient is tolerating TF. Patient had a runs of Vtach/PVCs this am, BB added per Cardio. Continue daily PS and wean trial for possible extubation. 11/22: Back on fentanyl gtt overnight , RASS o to -1, following commands. Patient failed PST this am due to increased work of breathing and low SPO2, ABG pending. Patient is also with worsen pitting edema, lasix is still on hold. Will discuss with cardio and CCM to possibly resume lasix. 11/23: MARIA DEL CARMEN overnight. Patient failed PST again this am. Per CCM plan for possible trach and PEG, hold off on IV lasix for now. General surgery consulted and family is aware of possible Trach and PEG. 11/24: Trach/PEG pending this week, continue SBT/SAT as tolerated. No acute events reported overnight. 11/25: Patient was n.p.o. overnight and will remain n.p.o. tonight for trach/PEG tomorrow morning. She failed to support trial again. KUB obtained due to distended belly. 11/26: Patient scheduled for tracheostomy and PEG tube placement today, has been n.p.o. since midnight. No acute events reported overnight. [facility] ordered simethicone scheduled. 11/27: No acute events reported overnight, patient received trach/PEG yesterday. Has been on feedings since last night. Still awaiting LTAC placement. 11/28: Patient magnesium repleted, repeat a.m. labs, SBT 11/29: Patient complains of chest pain but ECG obtained which showed no acute findings, ordered troponin. Patient failed CPAP yesterday and was trialed again today. levophed was restarted but will aggressively wean 11/30: Patient failed SBT. Continue supportive care. Started gabapentin today 12/01: MARIA DEL CARMEN overnight. Continue daily PST. Case management to arrange possible placement 12/02: Report of dark stools overnight, patient is hemodynamically stable. H&H stable, patient is on PPI. Will continue to trend H&H. Continue daily PST as tolerated. Awaiting LTAC vs SNF placement. 12/03: Hypotensive overnight, requiring low dose pressors. S/p X3 days of gentle diurese. Will continue to monitor, wean off pressors as tolerated for MAP of 65. Patient Failed PST yesterday, case management to follow up with insurance for possible LTAC placement. Continue daily PST as tolerated. PT eval and treat ordered. 12/04: Increased agitation and anxiety overnight, remains on buspar and seroquel, trazadone added to promote rest. Patient is now working with PT, keep patient engage and awake during the day so she can rest at night. No BM for over 5 days, BR was adjusted. Patient did not tolerate PST again yesterday, continue daily PST as tolerated. Continue to titrate pressor for MAP above 65. Pending possible LTAC placement, case management to arrange. 12/05: Still not getting much rest overnight, will add melatonin for sleep. Continue to engage patient during the day and promote rest at night. TF was held due to concern for possible bleeding, H&H remains stable and stools normal this am. Resume TF and continue PPI and carafate. Remains on low dose levophed, titrate as tolerated. Continue daily PST. Possible LTAC placement, awaiting approval. 12/06: MARIA DEL CARMEN overnight. Patient rested overnight. Continue supportive measures. Daily PST as tolerated. Awaiting possible LTAC placement 12/07: MARIA DEL CARMEN overnight. Plan for Tpiece trial today. Continue current supportive measures. Possible LTAC placement 12/08: Patient placed on pressure support trial again today, started on Xanax, no acute events reported overnight. Awaiting insurance approval for LTAC. 12/09: Levophed discontinued, LTAC transfer denied, started on midodrine and Lasix, ultrasound chest pending, started on Xanax 0.[address] De León updated family at bedside today. Started on Dilaudid every 3 hours as needed. 12/10: Patient placed on CPAP trial this morning, no acute events reported overnight. Will order ultrasound-guided thoracentesis. 12/11: Patient had a thoracentesis today, will decrease Xanax dosage and continue midodrine and diuresing. Patient failed CPAP today. 12/12: Patient not tolerate CPAP trials today, no acute events reported overnight 12/13: No acute events overnight. continue PSV trials as tolerated. Daughter upd ated at bedside 12/14: Patient noted to be anemic today, ordered gastric occult. Patient seems to be oversedated therefore Xanax changed to as needed and fentanyl patch discontinued. We will continue to monitor hyponatremia. 12/15: MARIA DEL CARMEN overnight. s/p 1unit of PRBCs, H&H stable this am, no signs of any active bleeding. Continue daily PST as tolerated. Awaiting placement. 12/16: Hypertensive this am, Midodrine decreased. Continue daily PST. MARIA DEL CARMEN overnight 12/17: Patient Hgb dropped to 6 this am, no s/s of any active bleeding, VSS. Patient received 1unit of PRBC, will continue to trend H&H. Patient was pancultured and back on IV Abx due to persistent fevers yesterday. ID is also back on the case. Continue IV Abx per ID and f/u on cultures data for sensitivity. Patient also failed PST yesterday, continue daily PST as tolerated. Electrolytes repleted, repeat labs in the am. 12/18: Patient blood cultures is growing GPC 4 out 4 bottles. PICC line D/Rivas, patient is already on IV Abx-cefepine and Vanc and ID is following. Patient remains hemodynamically stable. Daily PST as tolerated adn PRN Benzo for anxiety. 12/19: MARIA DEL CARMEN overnight. Culture data noted, continue IV Abx per ID. Orders placed for repeat Bculture. Gambel D/C overnight, patient is voiding. Check bladder scan as needed for retention. Patient failed PST again today. Continue daily PST as tolerated. 12/20: Fevers improved, Cultures +MRSA, on Vanco per ID. Repeat 2D Echo to r/o endocarditis. Patient continue to fail PST, PEEP increased to 8 today. Continue pulmonary hygiene and vent wean per CCM. Sodium tab added for hyponatremia. 12/22: Patient on pressure support trial for approximately 4 hours today, midodrine dosage increased due to hypotension. Lasix discontinued. 12/23: Started on a.m. Seroquel dose, midodrine increased to 10 mg 3 times daily, 500 mL normal saline bolus. 12/24: Seroquel dose changed (25 every morning, 75 nightly). updated at bedside by Dr. De León. CPAP trials as tolerated. Continue vancomycin. Awaiting placement. 12/25: Continue CPAP as tolerated, added gasx for distention. Continue supportive care 12/26: Patient failed PSV this AM. no acute events overnight. 12/27: GI re-consulted due to abdominal distention. No acute events reported overnight. CPAP trials as tolerated. Dr. Mckenna will get a KUB to rule out possible obstruction. 12/28: KUB shows no acute process, CXR shows improvement. CPAP trials as tolerated. 12/29: CT Abd/pelvis noted with moderated bilateral pleural effusion, anasarca, and ascites. X1dose of IV lasix administered. D/w CCM and GI orders plan for thora and paracentesis by IR. Will also start patient on aldactone Qday. Patient is tolerating trickle feeds this am, continue TF and BR adjusted for constipation. Plan of care was discussed with patient and her at the bedside. Thorough discussion on patient's overall poor prognosis and that eddie ent will most likely be vent dependent. Patient's voiced understanding of the info given. All questions and concerns were voiced at this time. 12/30: Patient did not tolerate thoracentesis in IR yesterday due to change in LOC and hypoxia. Plan for possible bedside thoracentesis and paracentesis today. Patient remains afebrile. Patient required manager long term care IV abx therapy [id number] left, orders placed for a PICC. Patient remains with sign. Piting edema and anasarca, X1 does of PO Zaroxolyn and 2m of IV lasix given. Electrolytes repleted, repeat lab in the am. 12/31: Tolerated Rt. thoracentesis at the bedside yesterday, 1.4L removed. Patient remains stable on the vent this am, tolerating CPAP today PS dropped to 14. Recent CXR noted, left pleural effusion improved. Patient tolerated gentle diurese yesterday, good urine output reported. D/w CCM hold off on Left thoracentesis today, continue PO Aldactone and additonal zaroxolyn and IV lasix again today. F/u CXR in the am. 01/01: This am CXR noted with worsening bilateral pleural effusion. Patient is stable and tolerating PST this am, however PS is back up to 20 this am. BP is soft this am will hold off on IV diuretic for today, continue PO Aldactone. D/w CCM continue gentle diurese as tolerated. Will reassess in the am. Continue s upport care. 01/02: MARIA DEL CARMEN overnight. VSS this am, tolerating PST. X1dose of 25% IV Albumin following with 20mg IV Lasix today. Continue daily gentle diurese if hemodynamics tolerate it. Continue to monitor and replace electrolytes as needed 01/03: Abdominal distention and vomiting overnight, 600cc of gastric residual removed, TF held. KUB with no acute abnormality. Reglan added X2days, resume TF, and continue BR. Patient is tolerating PST this am. Hemodynamics remains stable, will continue gentle IV diurese. close monitoring to renal function and electrolytes. 01/04: Tolerating TF, nausea/vomiting resolved, last BM on 01/03. Continue Reglan X1 more day. Patient continue to tolerate PST. D/W CCM continue gentle diurese. F/U CXR in the am. Possible US thoracentesis tomorrow. 01/05: no acute events overnight. scheduled for thoracentesis today but procedure pushed to tomorrow. TF restarted and will be NPO post MN. 01/06: planned thoracentesis today. Working with CM for ltac/snf approval. 01/07: s/p thoracentesis 120 cc appears to have been removed. Pulm recommendations noted, agree with continued diuresis and weaning. Continued planning with CM for ltac/snf placement. 01/08: No new issues. Continue vent weaning per pulmonary. Continuing to work with CM for placement. 01/09: No new issues. Continue vent weaning per pulmonary. Continuing to work with CM for placement. Ordered BMP for tomorrow to check kidney function as patient is currently being diuresed. 01/10: No new issues. Continue vent weaning/diuresis as directed by pulmonary medicine.BMP demonstrates normal renal function and potassium. Sodium and Chloride consistent with prior labs. Will recheck BMP in 2 days. Placement continues to be an issue as patient has been denied at all facilities. Will reasses with CM on wednesday. 01/11: Emesis overnight. Do not suspect that she is obstructed as she had 2 BM reported. Will order Reglan prn, drop TF rate to goal of 30 cc/hr. Will continue to work on placement. 01/12: Per RN patient had reported that she was tired and did not want to persist in her current state of health. D/w patient Niraj at patient bedside and stated that I recommended the patient/family at least talk with hospice to get a better understanding of their care. He was agreeable. I spoke with Ms. Busby who will help set up referral for hospice service so that family can be educated and, if the patient chooses, can pursue this option. 01/13: Continue supportive care. Family discussing about hospice. Continue reinforcement and continue weaning as tolerated. Prognosis is guarded and poor. Patient is clinically stable to transfer to the next level of care has not required any escalation in management. Has been stable on the vent awake alert following commands. 01/14: [id number]. Considering abdominal distention tube feedings hold along with the fact that the patient vomited yesterday. Will obtain a CT abdomen and pelvis to further evaluate placement. Discussed with nursing staff. Awaiting to have a family conversation with the for goals of care discussion again. 01/15: Continue supportive care, tube feed was restarted yesterday and tolerated, will start on simethicone for gas control and management. Patient is clinically stable for all lower level of care and continued weaning from the ventilator to appropriate facility. Family still undecided about goals of care. We will also check labs intermittently. 01/16: Patient today went for Chest tube placement on the right side for recurrent pleural effusion, with the goal of evaluating to see if we can wean off the vent. She has remained on the vent and with some persistent anxiety. she continues to tolerate tube feed. Again poor prognosis discussed with family. 01/17: Status post chest tube, with output of approximately 1880 cc since placement. Will continue to work with pulmonology for vent weaning. 01/18: Only tolerated 1 hr of t piece trial yesterday per RT. Patient PaO2 50s on abg last night. Will continue to work with pulmonary medicine for vent weaning. abg, cbc, bmp, xr chest ordered for am. 01/19: On t piece trial this AM. labs reviewed. CXR reviewed and appears stable with no new changes. AB.42/47.8/112.3/30.9. Will follow pulmonary recommendations and plan to continue to wean off of vent. 01/20: Per CM, [facility] declined patient admission as there are T stated the patient was not amenable from the vent. Yesterday patient had tolerated T-piece trial for approximately 12 hours. Today patient only tolerated for 45 minutes. Had desatted and stated that she was in pain during today's trial. Output yesterday from chest tube 1000 cc. Today it is 100 cc thus far. Will obtain chest x-ray tomorrow. 01/21: XR chest demonstrate mild improvement in pulmonary edema. Chest tube OP: 400 cc on 01/20 and 450 cc thus far today. On CPAP trial this am. Hopefully patient can eventually be weaned off of vent. Placement continues to be a challenge as patient has been denied at all facilities thus far, working with CM who has been in frequent contact with [facility]. 01/22: Yesterday the patient had lasted approximately 10 hours on T-piece trial. Output from chest tube approximately 525 cc yesterday. Thus far today patient has had 400 cc. Will follow with pulmonology regarding overall plan for chest tube and weaning patient off ventilator. 01/23: chest tube output 838 cc. Follow pulmonology plan re: chest tube and vent weaning. Placement remains challenging. 01/24: Very fatigue on t - piece trial yesterday afternoon, placed on full MV support. Will re-attempt today poss. Patient will complete Vancomycin course for MRSA tx on Friday 01/26. She has been afebrile sine 01/02. Current barriers to placement are weaning patient off of ventilator and removing chest tube as thus far all facilities have declined the patient. 01/25: AM CXR shows worsening pulmonary edema. On t-piece trial this AM. Patient still continues to have output from chest tube. Will follow pulmonary recs today. 01/26: Difficulty breathing this AM. Chest tube OP approx 1L yesterday. Ordered Albumin due to hypotension noted this AM. Lasix 20 mg IV in addition to po lasix ordered for pulmonary edema. Labs ordered. 01/27: Antibiotics completed for MRSA bacteremia yesterday. Will start po bactrim for suppression per ID recommendation. Remains on MV support this AM. Blood pressure improved..actually hypertensive. Chest tube OP 50 cc yesterday. Metabolic profile noted, BUN slightly elevated but Cr in range. Can continue with lasix diuresis. Will likely need pleurx mcc at some point in place of the chest tube. terminal operations manager prognosis remains guarded to poor. 01/28: Continue current ATP to vapotherm, agree with possible pluerex catheter for intermittent drainage/ following review of xray will trial Bumex for diuresis. Poor prognosis. 01/29: Patient seen and examined doing well diuresing appropriately with a change to Bumex therapy. Discussed with materials analyst still with good volume output fluid overload will try to diurese over the weekend. We will check a chest x- ray in the morning to see improvement in the lungs and probably repeat on Wednesday. Anticipate discharge to SNF on Wednesday clinically she is improving likely will not need a Pleurx catheter on discharge. Prognosis remains guarded. 01/30: cxr shows unchanged, but clinically patient is stable, no increase oxygen demand, also negative fluid balance. Will continue bumex, monitor electrolytes and renal function, check cxr again on wednesday with anticipation to remove Chest tube soon and hopefully discharge to SNF on wednesday 01/31: Patient doing clinically well, will recheck chest xray in am, continue bumex, monitor electrolytes, wean off oxygen as tolerated. 02/01: Continue supportive care, will change Bumex to PO in anticipation for discharge, Await pulmonary input if chest tube can be clamped today for possible removal tomorrow. 02/02: Patient seen and examined, awaiting Chest tube removal. If patient continues to show improvement will plan for discharge in 24 to 48hrs after Chest tube removed Can be discharged to SNF with Bumex PO. Neuro : Anxiety, chronic pain -Neurology consulted, appreciate recommendations -CT brain showed no acute events -EEG interpreted as abnormal record due to diffuse slowing noted throughout the recording, suggestive of encephalopathic process and/or drug effect, possibilities of postictal state cannot be totally excluded. Clinical correlation is in order -MRI brain not obtained-> patient has metal in her body -Repeat CT head with no acute findings -Reorientation as needed -Ammonia 42, B12 1823, TSH 1.5 -BuSpar, Seroquel, [place], gabapentin -prn xanax and Dilaudid Cardio: Acute Heart failure with reduced EF, h/o chronic heart block s/p PPM, HTN, CAD s/p PCI (2004), Moderate pulmonary HTN, cardiomyopathy -s/p vasopressor support with levophed -11/04 echocardiogram shows EF 30 to 35%, Moderate pulmonary HTN RVSP 49 -3/4 echo with 35-40% EF -Cardiology consulted, appreciate recommendations -Continue beta-charleen and statin therapy -Midodrine (titrate as needed) -Not on aspirin due to allergy -Blood pressure monitoring per protocol -As needed nitroglycerin Resp: Acute hypoxic respiratory failure secondary to bilateral pneumonia, recurrent bilateral pleural effusion s/p rt sided chest tube. Right pneumothorax (resolved). -COVID-19 PCR negative -Intubated on 11/06 with 6.00 ETT at 18 at the lip and changed over bougie on 11/11-7.50 ETT at 20 at the lip -See RT notes for titration -PSV as tolerated -Surgery consult for trach -Received trach/PEG on 11/26 -S/p bedside bronchoscopy on 11/11 complicated by pneumothorax -S/p chest tube placement for right pneumothorax and dislodgment by patient on 11/15 -ABG/CXR per [facility] -VAP bundle -Right chest wall ultrasound showed pleural effusion s/p chest tube -12/11 US thoracentesis removed 1L fluid -12/29 US thoracentesis removed 1.4L fluid -01/06 thoracentesis planned -01/16 right-sided chest tube placed by IR -SPO2 monitoring GI: S/p GI bleed, duodenal ulcer, transaminitis -GI consulted, appreciate recommendations-signed off -Nutrition consult for tube feeding, currently on nepro TF 45 cc/hr, dropped to 30 cc/hr due to concerns for emesis. -BR: Senokot -s/p peg 11/26 -H2 charleen -Carafate -24-hour +428 ml -10/2021 Gastric occult positive -> EGD-> duodenal ulcer -12/14 occult stool positive - reglan prn. : Urinary retention (resolved), hyponatremia, hypochloremia -Strict intake and output -Trend BMP ID: Septic shock (POA-resolved), bilateral pneumonia, MRSA bacteremia/pna -Infectious disease consulted, appreciate recommendations -COVID-19 PCR negative -Presented with fevers, leukocytosis and hypotension -11/04 blood cultures positive with a group B strep bacteremia 12/19 however repeat blood cultures on the with no growth to date -Echo showed no evidence of vegetation -repeat echo showed EF 35-40 % with no vegetations -ABX therapy: IV vancomycin for 4 weeks (12/16-01/26) -Monitor WBC and fever curve -Bedside bronchoscopy for mucous plug on CXR 11/11 -f/u blood cultures Heme: Acute DVT in the right external iliac vein, common femoral vein, superior aspect of femoral vein, Acute microcytic anemia -Evidenced on bilateral upper lower extremity ultrasound -S/p 7 unit PRBC -Trend CBC -Transfuse for hemoglobin less than 7 -heparin gtt dc d/t anemia -S/p IVC filter Endo: h/o DM and hypothyroidism -Continue home Synthroid -SSI -Accu-Cheks every 6 -Avoid hypoglycemia History Interval history: Patient seen and examined, resting comfortable. Now off High flow and on ATC doing well. Still with good urine output and negative fluid balance with no worsening respiratory distress Hospitalist Physical - Physical exam Narrative exam: VITAL SIGNS: Reviewed. GENERAL: The patient appears normally developed, ATP to vapotherm, vital signs as documented. Frail appearing elderly woman. HEAD: No signs of head trauma. EYES: Pupils are equal. Extraocular motions intact. EARS: Hearing grossly intact. MOUTH: Oropharynx is normal. NECK: No adenopathy, no JVD. Trach to ATC CHEST: Bl rhonchi, right sided chest tube CARDIAC: Regular rate and rhythm. S1 and S2, without murmurs, gallops, or rub s. VASCULAR: No Edema. Peripheral pulses normal and equal in all extremities. ABDOMEN: Soft, non tender and mildly distended. No rebound or guarding, and no masses palpated. Bowel Sounds normal. MUSCULOSKELETAL: Good range of motion of all major joints. Extremities without clubbing, cyanosis or edema. NEUROLOGIC EXAM: Alert and oriented x 3. Holding her paper and writing, No focal sensory or strength deficits. PSYCHIATRIC: stable SKIN: detail exam as documented in skin assessment - Constitutional Vitals: Temp Pulse Resp BP Pulse Ox 97.7 F 69 10 L 133/44 100 02/02/22 07:29 02/02/22 06:00 02/02/22 06:00 02/02/22 06:00 02/02/22 06:00 General appearance: Present: no acute distress HEART Score - HEART Score Troponin: Troponin T 0.078 ng/mL (0.00-0.029) H 01/15/22 Unknown Results - Labs CBC & Chem 7: 01/26/22 10:16 02/02/22 08:36 Labs: Laboratory Last Values WBC 12.7 K/mm3 (4.5-11.0) H 01/26/22 10:16 RBC 3.74 M/mm3 (3.65-5.03) 01/26/22 10:16 Hgb 9.9 gm/dl (10.1-14.3) L 01/26/22 10:16 Hct 31.1 % (30.3-42.9) 01/26/22 10:16 MCV 83 fl (79-97) 01/26/22 10:16 MCH 27 pg (28-32) L 01/26/22 10:16 MCHC 32 % (30-34) 01/26/22 10:16 RDW 18.3 % (13.2-15.2) H 01/26/22 10:16 Plt Count 269 K/mm3 (140-440) 01/26/22 10:16 Lymph % (Auto) 25.6 % (13.4-35.0) 01/26/22 10:16 [place] % (Auto) 4.5 % (0.0-7.3) 01/26/22 10:16 Eos % (Auto) 4.5 % (0.0-4.3) H 01/26/22 10:16 Baso % (Auto) 0.7 % (0.0-1.8) 01/26/22 10:16 Lymph # (Auto) 3.2 K/mm3 (1.2-5.4) 01/26/22 10:16 [place] # (Auto) 0.6 K/mm3 (0.0-0.8) 01/26/22 10:16 Eos # (Auto) 0.6 K/mm3 (0.0-0.4) H 01/26/22 10:16 Baso # (Auto) 0.1 K/mm3 (0.0-0.1) 01/26/22 10:16 Add Manual Diff Complete 01/19/22 04:50 Total Counted 100 01/15/22 14:36 Seg Neutrophils % 64.7 % (40.0-70.0) 01/26/22 10:16 Seg Neuts % (Manual) 82.0 % (40.0-70.0) H 01/15/22 14:36 Band Neutrophils % 0 % 01/15/22 14:36 Lymphocytes % (Manual) 11.0 % (13.4-35.0) L 01/15/22 14:36 Reactive Lymphs % (Man) 0 % 01/15/22 14:36 Monocytes % (Manual) 5.0 % (0.0-7.3) 01/15/22 14:36 Eosinophils % (Manual) 1.0 % (0.0-4.3) 01/15/22 14:36 Basophils % (Manual) 1.0 % (0.0-1.8) 01/15/22 14:36 Metamyelocytes % 0 % 01/15/22 14:36 Myelocytes % 0 % 01/15/22 14:36 Promyelocytes % 0 % 01/15/22 14:36 Blast Cells % 0 % 01/15/22 14:36 Nucleated RBC % Not Reportable 01/15/22 14:36 Seg Neutrophils # 8.2 K/mm3 (1.8-7.7) H 01/26/22 10:16 Seg Neutrophils # Man 8.8 K/mm3 (1.8-7.7) H 01/15/22 14:36 Band Neutrophils # 0.0 K/mm3 01/15/22 14:36 Lymphocytes # (Manual) 1.2 K/mm3 (1.2-5.4) 01/15/22 14:36 Abs React Lymphs (Man) 0.0 K/mm3 01/15/22 14:36 Monocytes # (Manual) 0.5 K/mm3 (0.0-0.8) 01/15/22 14:36 Eosinophils # (Manual) 0.1 K/mm3 (0.0-0.4) 01/15/22 14:36 Basophils # (Manual) 0.1 K/mm3 (0.0-0.1) 01/15/22 14:36 Metamyelocytes # 0.0 K/mm3 01/15/22 14:36 Myelocytes # 0.0 K/mm3 01/15/22 14:36 Promyelocytes # 0.0 K/mm3 01/15/22 14:36 Blast Cells # 0.0 K/mm3 01/15/22 14:36 WBC Morphology Not Reportable 01/15/22 14:36 Hypersegmented Neuts Not Reportable 01/15/22 14:36 Hyposegmented Neuts Not Reportable 01/15/22 14:36 Hypogranular Neuts Not Reportable 01/15/22 14:36 Smudge Cells Not Reportable 01/15/22 14:36 Toxic Granulation Not Reportable 01/15/22 14:36 Toxic Vacuolation Not Reportable 01/15/22 14:36 Dohle Bodies Not Reportable 01/15/22 14:36 Pelger-Huet Anomaly Not Reportable 01/15/22 14:36 Irina Rods Not Reportable 01/15/22 14:36 Platelet Estimate Consistent w auto 01/15/22 14:36 Clumped Platelets Not Reportable 01/15/22 14:36 Plt Clumps, EDTA Not Reportable 01/15/22 14:36 Large Platelets Not Reportable 01/15/22 14:36 Giant Platelets Not Reportable 01/15/22 14:36 Platelet Satelliting Not Reportable 01/15/22 14:36 Plt Morphology Comment Not Reportable 01/15/22 14:36 RBC Morphology Not Reportable 01/15/22 14:36 Dimorphic RBCs Not Reportable 01/15/22 14:36 Polychromasia Not Reportable 01/15/22 14:36 Hypochromasia Not Reportable 01/15/22 14:36 Poikilocytosis Not Reportable 01/15/22 14:36 Anisocytosis 1+ 01/15/22 14:36 Microcytosis Not Reportable 01/15/22 14:36 Macrocytosis Not Reportable 01/15/22 14:36 Spherocytes Not Reportable 01/15/22 14:36 Pappenheimer Bodies Not Reportable 01/15/22 14:36 Sickle Cells Not Reportable 01/15/22 14:36 Target Cells Not Reportable 01/15/22 14:36 Tear Drop Cells Not Reportable 01/15/22 14:36 Ovalocytes Not Reportable 01/15/22 14:36 Helmet Cells Not Reportable 01/15/22 14:36 [place] Bodies Not Reportable 01/15/22 14:36 Vernalis Rings Not Reportable 01/15/22 14:36 Malcom Cells Not Reportable 01/15/22 14:36 Bite Cells Not Reportable 01/15/22 14:36 Crenated Cell Not Reportable 01/15/22 14:36 Elliptocytes Not Reportable 01/15/22 14:36 Acanthocytes (Spur) Not Reportable 01/15/22 14:36 Rouleaux Not Reportable 01/15/22 14:36 Hemoglobin C Crystals Not Reportable 01/15/22 14:36 Schistocytes Not Reportable 01/15/22 14:36 Malaria parasites Not Reportable 01/15/22 14:36 Godfrey Bodies Not Reportable 01/15/22 14:36 Hem Pathologist Commnt No 01/15/22 14:36 PT 16.9 Sec. (12.2-14.9) H 01/06/22 04:06 INR 1.23 (0.87-1.13) H 01/06/22 04:06 APTT 29.2 Sec. (24.2-36.6) 11/26/21 05:00 D-Dimer 2655.00 ng/mlDDU (0-234) H 11/11/21 04:28 ABG pH 7.488 pH Units (7.350-7.450) H 01/25/22 12:20 ABG pCO2 38.2 mm Hg 01/25/22 12:20 ABG pO2 58.9 mm Hg (80.0-90.0) L 01/25/22 12:20 ABG HCO3 28.3 mmol/L (20.0-26.0) H 01/25/22 12:20 ABG O2 Saturation 94.9 % (95.0-99.0) L 01/25/22 12:20 ABG O2 Content 11.4 (0.0-44) 01/25/22 12:20 ABG Base Excess 4.7 mmol/L (-2.0-3.0) H 01/25/22 12:20 ABG Hemoglobin 8.7 gm/dl (12.0-16.0) L 01/25/22 12:20 ABG Carboxyhemoglobin 1.8 % (0.0-5.0) 01/25/22 12:20 ABG Methemoglobin 0.5 % (0.0-1.5) 01/25/22 12:20 Oxyhemoglobin 92.7 % (95.0-99.0) L 01/25/22 12:20 FiO2 35 % 01/25/22 12:20 Sodium 136 mmol/L (137-145) L 02/01/22 04:00 Potassium 3.9 mmol/L (3.6-5.0) 02/01/22 04:00 Chloride 94.1 mmol/L (98-107) L 02/01/22 04:00 Carbon Dioxide 29 mmol/L (22-30) 02/01/22 04:00 Anion Gap 17 mmol/L 02/01/22 04:00 BUN 41 mg/dL (7-17) H 02/01/22 04:00 Creatinine 0.8 mg/dL (0.6-1.2) 02/01/22 04:00 Estimated GFR > 60 ml/min 02/01/22 04:00 BUN/Creatinine Ratio 51 % 02/01/22 04:00 Glucose 118 mg/dL (65-100) H 02/01/22 04:00 POC Glucose 81 mg/dL (70-105) 02/01/22 23:56 Lactic Acid 3.70 mmol/L (0.7-2.0) H* 11/03/21 22:32 Calcium 9.0 mg/dL (8.4-10.2) 02/01/22 04:00 Phosphorus 4.00 mg/dL (2.5-4.5) 01/26/22 10:16 Magnesium 1.70 mg/dL (1.7-2.3) 01/26/22 10:16 Ferritin 52.6 ng/mL (10.0-200.0) 11/05/21 06:11 Total Bilirubin 0.50 mg/dL (0.1-1.2) 11/17/21 05:56 Direct Bilirubin < 0.2 mg/dL (0-0.2) 11/11/21 04:28 Indirect Bilirubin 0.1 mg/dL 11/11/21 04:28 AST 36 units/L (5-40) 11/17/21 05:56 ALT 47 units/L (7-56) 11/17/21 05:56 Alkaline Phosphatase 107 units/L (35-129) 11/17/21 05:56 Ammonia 42.0 umol/L (25-60) 11/10/21 14:08 Lactate Dehydrogenase 187 units/L (91-180) H 11/05/21 06:11 Troponin T 0.078 ng/mL (0.00-0.029) H 01/15/22 Unknown C-Reactive Protein 22.20 mg/dL (0.00-1.30) H 11/05/21 06:11 NT-Pro-B Natriuret Pep 7895 pg/mL (0-900) H 11/03/21 22:32 Total Protein 5.1 g/dL (6.3-8.2) L 11/17/21 05:56 Albumin 2.2 g/dL (3.9-5) L 11/17/21 05:56 Albumin/Globulin Ratio 0.8 % 11/17/21 05:56 Triglycerides 72 mg/dL (2-149) 01/15/22 21:07 Cholesterol 103 mg/dL (50-199) 01/15/22 21:07 LDL Cholesterol Direct 44 mg/dL (50-130) L 01/15/22 21:07 HDL Cholesterol 46 mg/dL (40-59) 01/15/22 21:07 Cholesterol/HDL Ratio 2.23 % 01/15/22 21:07 Vitamin B12 1823 pg/mL (211-911) H 11/10/21 14:08 TSH 1.510 mlU/mL (0.270-4.200) 11/10/21 14:08 Urine Color [place] (Yellow) 01/23/22 09:36 Urine Turbidity Turbid (Clear) 01/23/22 09:36 Urine pH 7.0 (5.0-7.0) 01/23/22 09:36 Ur Specific [place] 1.011 (1.003-1.030) 01/23/22 09:36 Urine Protein <15 mg/dl mg/dL (Negative) 01/23/22 09:36 Urine Glucose (UA) Neg mg/dL (Negative) 01/23/22 09:36 Urine Ketones Neg mg/dL (Negative) 01/23/22 09:36 Urine Blood Sm (Negative) 01/23/22 09:36 Urine Nitrite Neg (Negative) 01/23/22 09:36 Urine Bilirubin Neg (Negative) 01/23/22 09:36 Urine Urobilinogen 2.0 mg/dL (<2.0) 01/23/22 09:36 Ur Leukocyte Esterase Lg (Negative) 01/23/22 09:36 Urine WBC (Auto) 16.0 /HPF (0.0-6.0) H 01/23/22 09:36 Urine RBC (Auto) 32.0 /HPF (0.0-6.0) 01/23/22 09:36 U Epithel Cells (Auto) 1.0 /HPF (0-13.0) 01/23/22 09:36 Urine Bacteria (Auto) 4+ /HPF (Negative) 01/23/22 09:36 Urine Mucus Few /HPF 01/23/22 09:36 Urine Yeast (Budding) 3+ /HPF 01/23/22 09:36 Urine Sperm Few /HPF ([employer]) 01/23/22 09:36 Fluid Type Pleural 01/06/22 13:40 Fluid Color Yellow 01/06/22 13:40 Fluid Appearance Hazy 01/06/22 13:40 Fluid WBC 273 /mm3 01/06/22 13:40 Fluid RBC 45 /mm3 01/06/22 13:40 Fluid Seg Neutrophils 47.0 % 01/06/22 13:40 Fluid Lymphocytes 22.0 % 01/06/22 13:40 Fluid Monocytes 10.0 % 01/06/22 13:40 Fluid Eosinophils 19.0 % 01/06/22 13:40 Fluid Basophils 2.0 % 01/06/22 13:40 Fluid Glucose 96 mg/dL (40-70) H 01/06/22 13:40 Fluid Total Protein < 3.0 (15.0-45.0) L 01/06/22 13:40 Fluid LDH 149 01/06/22 13:40 Vancomycin Trough 11.8 ug/mL (5.0-20.0) 01/22/22 10:14 Random Vancomycin 10.5 ug/mL (0-40.0) 01/04/22 05:00 Coronavirus (PCR) Negative (Negative) 11/10/21 08:30 Blood Type O POSITIVE 12/14/21 10:30 Antibody Screen Negative 12/14/21 10:30 Crossmatch See Detail 12/14/21 10:30 Gamble/IV: Voiding Method External Female Catheter Active Medications - Current Medications Current Medications: Generic Name Dose Route Start Last Admin Trade Name Freq PRN Reason Stop Dose Admin Acetaminophen 650 mg 12/14/21 04:12 01/26/22 03:19 Acetaminophen 325 Mg/10.15 Ml Oral Liqd Unit Dose FEEDTUBE 650 mg Q6H PRN Administration Non Cardiac Pain or Temp>100.5 Hydrocodone Bitart/Acetaminophen 1 each 11/21/21 10:00 02/01/22 21:03 Hydrocodone/Acetaminophen 10-325mg Tab FEEDTUBE 1 each TID YOSSI Administration Alprazolam 0.25 mg 01/22/22 03:00 02/02/22 03:31 Alprazolam 0.5 Mg Tab FEEDTUBE 0.25 mg Q8H PRN Administration Agitation Lipase/Protease/Amylase 1 each 11/08/21 11:09 Lipase 10,500/Protease 25,000/Amylase 43,750 (Units) Dr Lema FEEDTUBE PRN PRN For Clogged Feeding Tube Bumetanide 1 mg 02/02/22 10:00 Bumetanide 1 Mg Tab FEEDTUBE QDAY YOSSI Buspirone HCl 7.5 mg 12/30/21 10:00 02/01/22 21:03 Buspirone 5 Mg Tab FEEDTUBE 7.5 mg BID YOSSI Administration Dextrose 50 ml 01/16/22 14:00 Dextrose 50% In Water (25gm) 50 Ml Syringe IV Q30MIN PRN Hypoglycemia Protocol Docusate Sodium 100 mg 12/30/21 10:00 02/01/22 21:02 Docusate Sodium 100 Mg/10 Ml Oral Liqd FEEDTUBE 100 mg BID YOSSI Administration Gabapentin 100 mg 01/22/22 10:00 02/01/22 10:16 Gabapentin 500 Mg/10 Ml Oral Liqd FEEDTUBE 100 mg QDAY YOSSI Administration Hydrophilic Ointment 1 applic 11/06/21 04:02 Lip Therapy Vaseline TP Q2HR PRN Dry Lips Lansoprazole 30 mg 11/24/21 22:00 02/01/22 21:02 Lansoprazole 30 Mg Solutab FEEDTUBE 30 mg BID YOSSI Administration Levothyroxine Sodium 125 mcg 12/31/21 06:00 02/02/22 05:08 Levothyroxine 125 Mcg Tab FEEDTUBE 125 mcg DAILY@0600 YOSSI Administration Melatonin 5 mg 12/05/21 22:00 02/01/22 21:03 Melatonin 5 Mg Tab PO 5 mg QHS YOSSI Administration Metoclopramide HCl 10 mg 01/11/22 13:25 01/21/22 21:43 Metoclopramide 10 Mg/2 Ml Inj IV 10 mg Q6H PRN Administration Nausea And Vomiting Metoprolol Tartrate 6.25 mg 12/30/21 10:00 02/01/22 21:03 Metoprolol Tartrate 25 Mg Tab FEEDTUBE 6.25 mg BID YOSSI Administration Midodrine 10 mg 01/21/22 08:00 02/01/22 16:02 Midodrine 5 Mg Tab FEEDTUBE Not Given TID@0800,1200,1600 [facility] Multi-Ingred Cream/Lotion/Oil/Oint 1 applic 11/06/21 04:02 Mineral Oil/Petrolatum, White Ophth Oint 3.5 Gm OU Q4HR PRN Dry Eye(s) Ondansetron HCl 4 mg 12/05/21 10:00 01/20/22 22:10 Ondansetron 4 Mg/2 Ml Inj IV 4 mg Q8H PRN Administration Nausea And Vomiting Polyethylene Glycol 17 gm 12/30/21 10:00 02/01/22 10:17 Polyethylene Glycol 3350 17 Gm Powder FEEDTUBE Not Given QDAY [facility] Pravastatin Sodium 20 mg 12/30/21 22:00 02/01/22 21:03 Pravastatin 20 Mg Tab FEEDTUBE 20 mg QHS YOSSI Administration Quetiapine Fumarate 25 mg 12/30/21 10:00 02/01/22 10:16 Quetiapine 25 Mg Tab FEEDTUBE 25 mg QAM YOSSI Administration Quetiapine Fumarate 50 mg 12/30/21 22:00 02/01/22 21:02 Quetiapine 25 Mg Tab FEEDTUBE 50 mg QHS YOSSI Administration Senna 17.6 mg 12/29/21 11:00 02/01/22 21:02 Sennosides Oral Liqd 8.8 Mg/5 Ml Oral Liqd FEEDTUBE 17.6 mg Q12HR YOSSI Administration Simethicone 80 mg 01/15/22 15:06 01/15/22 21:10 Simethicone 80 Mg Chew Tab PO 80 mg PC PRN Administration Gas pain Simple Syrup 15 ml 11/08/21 11:09 Simple Syrup 15 Ml FEEDTUBE PRN PRN Hypoglycemia Simple Syrup 30 ml 11/08/21 11:09 Simple Syrup 15 Ml FEEDTUBE PRN PRN Hypoglycemia Sodium Bicarbonate 325 mg 11/08/21 11:09 01/09/22 20:25 Sodium Bicarbonate 325 Mg Tab FEEDTUBE 325 mg PRN PRN Administration For Clogged Feeding Tube Sodium Chloride 10 ml 11/04/21 10:00 02/01/22 21:03 Sodium Chloride 0.9% 10 Ml Flush Syringe IV 10 ml BID YOSSI Administration Sodium Chloride 10 ml 11/04/21 02:03 01/09/22 06:35 Sodium Chloride 0.9% 10 Ml Flush Syringe IV 10 ml PRN PRN Administration LINE FLUSH Spironolactone 25 mg 12/30/21 10:00 02/01/22 10:16 Spironolactone 25 Mg Tab FEEDTUBE 25 mg QDAY YOSSI Administration Sucralfate 1 gm 12/30/21 12:00 02/02/22 05:08 Sucralfate 1 Gm/10 Ml Oral Liqd FEEDTUBE 1 gm Q6HR YOSSI Administration Trazodone HCl 50 mg 12/04/21 22:00 02/01/22 21:02 Trazodone 50 Mg Tab PO 50 mg QHS YOSSI Administration Trimethoprim/Sulfamethoxazole 160 mg 01/27/22 13:00 02/01/22 10:15 Sulfamethoxazole/Trimethoprim 200-40 Mg/5 Ml Oral Liqd 30 Ml PO 160 mg Q24HR YOSSI Administration Protocol Nutrition/Malnutrition Assess - Dietary Evaluation Nutrition/Malnutrition Findings: Nutrition Notes Start: 11/04/21 17:16 Freq: Status: Active Protocol: Document 01/26/22 14:39 NHARMEN (Rec: 01/26/22 14:45 NHALL [id number]) Nutrition Notes Initial or Follow up Reassessment Current Diagnosis Coronary Artery Disease, Diabetes,Hypertension,Heart Failure,Respiratory Failure Other Pertinent Diagnosis Bilat pleural effusion Current Diet TF - Vital AF 1.2 at 35ml/hr Labs/Tests Reviewed Pertinent Medications 25% Human albumin x 1 dose, Lasix x 1 dose Height 5 ft Weight 62.6 kg [place] Body Weight (kg) 45.45 BMI 26.9 Weight Status Overweight Subjective/Other Information Pt tolerating TF at goal rate. Pt remains on T-piece trials , however, was on vent support at time of visit today; chest tube still in place with substantial output. Percent of energy/protein needs met: 84% energy and pro Burn Absent Trauma Absent #2 Nutrition Diagnosis Inadequate enteral nutrition infusion #1 Nutrition Diagnosis Inadequate oral intake Diagnosis Progress(for reassessment Continues documentation) Is patient on ventilator? Yes Is Patient Ambulatory and/or Out of Bed No REE-([facility]-confined to bed) 1210.212 Calculation Used for Recommendations [facility] Additional Notes Pro needs 1.2-2g/k-125g/ day Fluid needs 1ml/kcal Nutrition Intervention Nutrition Support: Continue Vital AF 1.2 at 35ml/ hr with 50ml water flush q4h. Kcal 1,008 Protein (gm) 63 Carbohydrates (gm) 45 Fat (gm) 45 Fluid (mL) 681 Fiber (gm) 4 Add Supplement/Snack (indicate name/kcal Jaswant BID /protein ) Provides kCal: 190 Provides Protein (gm) 5 Goal #1 TF tolerance Goal #2 TF to meet at least 75% energy and pro needs Goal #3 Wound healing Follow-Up By: 02/02/22 Additional Comments F/U: stable TF, wt, vent status, wound healing/Jaswant administration
[2022-02-02 08:57] LABS: Blood Urea Nitrogen 38 mg/dL (7-17); Calcium 9.5 mg/dL (8.4-10.2); Hemolysis Index 29
[2022-02-02 08:58] LABS: BUN/Creatinine Ratio 54
[2022-02-02] MEDS: DOCUSATE SODIUM 100 MG/10 ML ORAL LIQD FEEDTUBE SCH ×2 (09:27→21:03)
[2022-02-02] MEDS: HYDROcodone/ACETAMINOPHEN 10-325MG TAB FEEDTUBE SCH ×3 (09:27→20:11)
[2022-02-02] MEDS: busPIRone 5 MG TAB FEEDTUBE SCH ×2 (09:27→21:02)
[2022-02-02] MEDS: SENNOSIDES ORAL LIQD 8.8 MG/5 ML ORAL LIQD FEEDTUBE SCH ×2 (09:27→21:03)
[2022-02-02] MEDS: LANSOPRAZOLE 30 MG SOLUTAB FEEDTUBE SCH ×2 (09:28→21:03)
[2022-02-02] MEDS: SPIRONOLACTONE 25 MG TAB FEEDTUBE SCH (09:28)
[2022-02-02] MEDS: SULFAMETHOXAZOLE/TRIMETHOPRIM 200-40 MG/5 ML ORAL LIQD 30 ML PO SCH (09:28)
[2022-02-02] MEDS: MIDODRINE 5 MG TAB FEEDTUBE SCH ×3 (09:28→17:36)
[2022-02-02] MEDS: METOPROLOL TARTRATE 25 MG TAB FEEDTUBE SCH ×2 (09:28→21:03)
[2022-02-02] MEDS: GABAPENTIN 500 MG/10 ML ORAL LIQD FEEDTUBE SCH (09:29)
[2022-02-02] MEDS: POLYETHYLENE GLYCOL 3350 17 GM POWDER FEEDTUBE SCH (09:29)
[2022-02-02] MEDS: QUEtiapine 25 MG TAB FEEDTUBE SCH ×2 (09:29→21:03)
[2022-02-02] MEDS: BUMETANIDE 1 MG TAB FEEDTUBE SCH (09:29)
--- NOTE | 2022-02-02 10:58 | Progress Note ---
Assessment and Plan Gram positive Bacteremia (MRSA) Acute respiratory failure with hypoxia, now on MVS Acute microcytic anemia Bilateral pneumonia DVT Left pleural effusion Cardiomyopathy EF 30-35% Moderate pulmonary HTN - get CXR and address - clamp chest tube now and pull tomorrow if no clinical deterioration - [facility] evaluation ordered - no new issues otherwise, continue care as below; - continue thyroid replacement therapy with Levoxyl - continue Bumex 1 mg p.o. daily - follow I's & O's and monitor electrolytes - continue Seroquel - Vancomycin carmita-escalated to Bactrim - continue to wean supplemental oxygen for target O2 sat's > 90% acutely - aspiration precautions - continue bronchodilators with routine trach care and pulmonary hygiene per RT - wean per pulmonary driven protocols otherwise - avoid nephrotoxins, renally dose all medications - continue accuchecks with glycemic control per SSI for target blood glucose < 180 mg/dL - continue to avoid benzodiazepine's, reduce the possibility of delirium - prn analgesia per pain score - Maintenance of sleep-wake cycle, avoid delirium - continue enteral nutritional support at goal rate as tolerated - G.I. & VTE prophylaxis - PT/OT/ROM exercises - continue mobility protocols for pressure ulcer prophylaxis - Monitor hemodynamics closely - continue other care per attending / other consultants - discharge planning ongoing concurrently COVID SPECIFIC INTERVENTIONS - COVID-19 PCR negative .... Re-evaluate in am & prn Subjective Date of service: 02/02/22 Principal diagnosis: Septic shock; AHRF; Anemia; Pneumonia; pleural effusion; HFrEF; Pulm HTN Interval history: Patient is seen today for: Septic shock; Acute hypoxemic respiratory failure; Anemia; Bilateral pneumonia; Left pleural effusion; HFrEF 30-35%; Pulm HTN RVSP 49 Seen and examined at bedside; 24hour events reviewed; nursing and respiratory care staff consulted; no adverse overnight events reported to me; resting in bed; now off MVS and tolerating RTC t-piece trials; denies acute chest pains; chest tube in place; denies N/V/F/C Objective Vital Signs - 12hr 02/01/22 02/02/22 02/02/22 23:00 00:00 01:00 Temperature 97.6 F Pulse Rate 60 60 63 Pulse Rate [ From Monitor] Respiratory 15 15 14 Rate Blood Pressure 106/44 107/45 110/50 O2 Sat by Pulse 99 98 100 Oximetry O2 Sat by Pulse 100 Oximetry [ Assessment] 02/02/22 02/02/22 02/02/22 02:00 03:00 03:09 Temperature Pulse Rate 60 79 60 Pulse Rate [ 60 From Monitor] Respiratory 14 14 Rate Blood Pressure 100/47 100/47 O2 Sat by Pulse 98 100 Oximetry O2 Sat by Pulse Oximetry [ Assessment] 02/02/22 02/02/22 02/02/22 03:47 04:00 05:00 Temperature 98.2 F Pulse Rate 68 61 Pulse Rate [ From Monitor] Respiratory 13 15 Rate Blood Pressure 142/50 89/32 O2 Sat by Pulse 100 99 Oximetry O2 Sat by Pulse Oximetry [ Assessment] 02/02/22 02/02/22 02/02/22 06:00 07:00 07:29 Temperature 97.7 F Pulse Rate 69 71 Pulse Rate [ From Monitor] Respiratory 10 L 14 Rate Blood Pressure 133/44 135/67 O2 Sat by Pulse 100 100 Oximetry O2 Sat by Pulse Oximetry [ Assessment] 02/02/22 02/02/22 02/02/22 08:00 08:11 09:00 Temperature Pulse Rate 71 84 Pulse Rate [ From Monitor] Respiratory 17 19 Rate Blood Pressure 122/59 115/73 O2 Sat by Pulse 100 100 99 Oximetry O2 Sat by Pulse Oximetry [ Assessment] 02/02/22 02/02/22 09:28 10:00 Temperature Pulse Rate 73 64 Pulse Rate [ 64 From Monitor] Respiratory 16 Rate Blood Pressure 115/73 108/42 O2 Sat by Pulse 100 Oximetry O2 Sat by Pulse Oximetry [ Assessment] Constitutional: alert, appears uncomfortable, other (normal respiratory effort at rest) Eyes: non-icteric ENT: oropharynx moist, other (+ Midline tracheostomy with minimal secretions) Neck: supple, no lymphadenopathy, no JVD Effort: mildly labored Ascultation: Bilateral: diminished breath sounds (bases), other (Right chest tube) Cardiovascular: regular rate and rhythm, other (S1,S2) Gastrointestinal: normoactive bowel sounds, soft, non-tender, non-distended (protuberant) Integumentary: normal Extremities: no cyanosis, no edema, pink and warm, pulses normal Neurologic: non-focal exam (grossly), pupils equal and round, CN II-XII normal Psychiatric: mood appropriate, affect normal CBC and BMP: 02/03/22 04:00 02/03/22 04:00 ABG, PT/INR, D-dimer: ABG ABG pH 7.488 pH Units (7.350-7.450) H 01/25/22 12:20 ABG pCO2 38.2 mm Hg 01/25/22 12:20 ABG pO2 58.9 mm Hg (80.0-90.0) L 01/25/22 12:20 ABG O2 Saturation 94.9 % (95.0-99.0) L 01/25/22 12:20 PT/INR, D-dimer PT 16.9 Sec. (12.2-14.9) H 01/06/22 04:06 INR 1.23 (0.87-1.13) H 01/06/22 04:06 D-Dimer 2655.00 ng/mlDDU (0-234) H 11/11/21 04:28 Abnormal lab findings: Abnormal Labs 11/03/21 11/03/21 11/03/21 22:32 22:32 22:32 WBC 29.3 H RBC 2.93 L Hgb 6.1 L Hct 21.9 L MCV 75 L MCH 21 L MCHC 28 L RDW 19.7 H Plt Count Eos % (Auto) Eos # (Auto) Seg Neuts % (Manual) 97.0 H Lymphocytes % (Manual) 3.0 L Seg Neutrophils # Seg Neutrophils # Man 28.4 H Lymphocytes # (Manual) 0.9 L Monocytes # (Manual) PT 18.6 H INR 1.40 H D-Dimer ABG pH ABG pO2 ABG HCO3 ABG O2 Saturation ABG Base Excess ABG Hemoglobin Oxyhemoglobin Sodium Potassium Chloride Carbon Dioxide 20 L BUN 33 H Creatinine Glucose 119 H POC Glucose Lactic Acid Calcium 8.3 L Phosphorus Magnesium AST ALT Alkaline Phosphatase Lactate Dehydrogenase Troponin T 0.035 H C-Reactive Protein NT-Pro-B Natriuret Pep Total Protein Albumin LDL Cholesterol Direct 34 L Vitamin B12 Urine WBC (Auto) Fluid Glucose Fluid Total Protein Vancomycin Trough Crossmatch 11/03/21 11/03/21 11/03/21 22:32 22:32 23:57 WBC RBC Hgb Hct MCV MCH MCHC RDW Plt Count Eos % (Auto) Eos # (Auto) Seg Neuts % (Manual) Lymphocytes % (Manual) Seg Neutrophils # Seg Neutrophils # Man Lymphocytes # (Manual) Monocytes # (Manual) PT INR D-Dimer ABG pH ABG pO2 ABG HCO3 ABG O2 Saturation ABG Base Excess ABG Hemoglobin Oxyhemoglobin Sodium Potassium Chloride Carbon Dioxide BUN Creatinine Glucose POC Glucose Lactic Acid 3.70 H* Calcium Phosphorus Magnesium AST ALT Alkaline Phosphatase 139 H Lactate Dehydrogenase Troponin T C-Reactive Protein NT-Pro-B Natriuret Pep 7895 H Total Protein Albumin 3.5 L LDL Cholesterol Direct Vitamin B12 Urine WBC (Auto) Fluid Glucose Fluid Total Protein Vancomycin Trough Crossmatch See Detail 11/04/21 11/04/21 11/05/21 00:59 13:58 00:51 WBC 27.9 H RBC 3.28 L Hgb 7.3 L Hct 25.5 L MCV 78 L MCH 22 L MCHC 29 L RDW 19.1 H Plt Count Eos % (Auto) Eos # (Auto) Seg Neuts % (Manual) 96.0 H Lymphocytes % (Manual) 2.0 L Seg Neutrophils # Seg Neutrophils # Man 26.8 H Lymphocytes # (Manual) 0.6 L Monocytes # (Manual) PT INR D-Dimer ABG pH ABG pO2 ABG HCO3 ABG O2 Saturation ABG Base Excess ABG Hemoglobin Oxyhemoglobin Sodium Potassium Chloride Carbon Dioxide BUN Creatinine Glucose POC Glucose Lactic Acid Calcium Phosphorus Magnesium AST ALT Alkaline Phosphatase Lactate Dehydrogenase Troponin T 0.051 H D 0.032 H D C-Reactive Protein NT-Pro-B Natriuret Pep Total Protein Albumin LDL Cholesterol Direct Vitamin B12 Urine WBC (Auto) Fluid Glucose Fluid Total Protein Vancomycin Trough Crossmatch 11/05/21 11/05/21 11/05/21 06:11 06:11 06:11 WBC 31.8 H RBC 3.57 L Hgb 8.0 L Hct 27.7 L MCV 78 L MCH 22 L MCHC 29 L RDW 19.2 H Plt Count Eos % (Auto) Eos # (Auto) Seg Neuts % (Manual) 91.0 H Lymphocytes % (Manual) 4.5 L Seg Neutrophils # Seg Neutrophils # Man 28.9 H Lymphocytes # (Manual) Monocytes # (Manual) 1.1 H PT INR D-Dimer 1494.53 H ABG pH ABG pO2 ABG HCO3 ABG O2 Saturation ABG Base Excess ABG Hemoglobin Oxyhemoglobin Sodium Potassium Chloride Carbon Dioxide 19 L BUN 42 H Creatinine Glucose 115 H POC Glucose Lactic Acid Calcium Phosphorus Magnesium AST 43 H ALT Alkaline Phosphatase Lactate Dehydrogenase 187 H Troponin T C-Reactive Protein 22.20 H NT-Pro-B Natriuret Pep Total Protein 6.0 L Albumin 3.2 L LDL Cholesterol Direct Vitamin B12 Urine WBC (Auto) Fluid Glucose Fluid Total Protein Vancomycin Trough Crossmatch 11/05/21 11/05/21 11/06/21 06:11 12:15 00:30 WBC RBC Hgb Hct MCV MCH MCHC RDW Plt Count Eos % (Auto) Eos # (Auto) Seg Neuts % (Manual) Lymphocytes % (Manual) Seg Neutrophils # Seg Neutrophils # Man Lymphocytes # (Manual) Monocytes # (Manual) PT INR D-Dimer ABG pH ABG pO2 ABG HCO3 ABG O2 Saturation ABG Base Excess ABG Hemoglobin Oxyhemoglobin Sodium Potassium Chloride Carbon Dioxide BUN Creatinine Glucose POC Glucose 113 H 69 L Lactic Acid Calcium Phosphorus Magnesium AST ALT Alkaline Phosphatase Lactate Dehydrogenase Troponin T 0.033 H C-Reactive Protein NT-Pro-B Natriuret Pep Total Protein Albumin LDL Cholesterol Direct Vitamin B12 Urine WBC (Auto) Fluid Glucose Fluid Total Protein Vancomycin Trough Crossmatch 11/06/21 11/06/21 11/06/21 05:50 15:50 15:50 WBC 25.5 H RBC 3.62 L Hgb 8.0 L Hct 27.5 L MCV 76 L MCH 22 L MCHC 29 L RDW 19.6 H Plt Count Eos % (Auto) Eos # (Auto) Seg Neuts % (Manual) 92.0 H Lymphocytes % (Manual) 5.0 L Seg Neutrophils # Seg Neutrophils # Man 23.5 H Lymphocytes # (Manual) Monocytes # (Manual) PT INR D-Dimer ABG pH 7.305 L ABG pO2 ABG HCO3 15.8 L ABG O2 Saturation ABG Base Excess -9.6 L ABG Hemoglobin 8.6 L Oxyhemoglobin 94.6 L Sodium Potassium Chloride 113.9 H Carbon Dioxide 17 L BUN 56 H Creatinine Glucose 114 H POC Glucose Lactic Acid Calcium 7.9 L Phosphorus Magnesium AST 1410 H ALT 934 H Alkaline Phosphatase 142 H Lactate Dehydrogenase Troponin T C-Reactive Protein NT-Pro-B Natriuret Pep Total Protein 5.0 L Albumin 2.6 L LDL Cholesterol Direct Vitamin B12 Urine WBC (Auto) Fluid Glucose Fluid Total Protein Vancomycin Trough Crossmatch 11/07/21 11/07/21 11/07/21 03:30 04:50 08:07 WBC RBC Hgb Hct MCV MCH MCHC RDW Plt Count Eos % (Auto) Eos # (Auto) Seg Neuts % (Manual) Lymphocytes % (Manual) Seg Neutrophils # Seg Neutrophils # Man Lymphocytes # (Manual) Monocytes # (Manual) PT INR D-Dimer ABG pH ABG pO2 296.9 H ABG HCO3 18.1 L ABG O2 Saturation 99.5 H ABG Base Excess -5.9 L ABG Hemoglobin 7.6 L Oxyhemoglobin Sodium Potassium Chloride Carbon Dioxide BUN Creatinine Glucose POC Glucose 106 H 108 H Lactic Acid Calcium Phosphorus Magnesium AST ALT Alkaline Phosphatase Lactate Dehydrogenase Troponin T C-Reactive Protein NT-Pro-B Natriuret Pep Total Protein Albumin LDL Cholesterol Direct Vitamin B12 Urine WBC (Auto) Fluid Glucose Fluid Total Protein Vancomycin Trough Crossmatch 11/08/21 11/08/21 11/08/21 03:10 18:05 23:43 WBC RBC Hgb Hct MCV MCH MCHC RDW Plt Count Eos % (Auto) Eos # (Auto) Seg Neuts % (Manual) Lymphocytes % (Manual) Seg Neutrophils # Seg Neutrophils # Man Lymphocytes # (Manual) Monocytes # (Manual) PT INR D-Dimer ABG pH ABG pO2 127.4 H ABG HCO3 ABG O2 Saturation ABG Base Excess -3.4 L ABG Hemoglobin 7.4 L Oxyhemoglobin Sodium Potassium Chloride Carbon Dioxide BUN Creatinine Glucose POC Glucose 113 H 141 H Lactic Acid Calcium Phosphorus Magnesium AST ALT Alkaline Phosphatase Lactate Dehydrogenase Troponin T C-Reactive Protein NT-Pro-B Natriuret Pep Total Protein Albumin LDL Cholesterol Direct Vitamin B12 Urine WBC (Auto) Fluid Glucose Fluid Total Protein Vancomycin Trough Crossmatch 11/08/21 11/08/21 11/09/21 Unknown Unknown 02:00 WBC 14.5 H RBC 3.35 L Hgb 7.5 L 8.1 L Hct 25.4 L 27.6 L MCV 76 L 76 L MCH 23 L 22 L MCHC RDW 19.9 H 19.9 H Plt Count Eos % (Auto) Eos # (Auto) Seg Neuts % (Manual) Lymphocytes % (Manual) Seg Neutrophils # Seg Neutrophils # Man Lymphocytes # (Manual) Monocytes # (Manual) PT INR D-Dimer ABG pH ABG pO2 ABG HCO3 ABG O2 Saturation ABG Base Excess ABG Hemoglobin Oxyhemoglobin Sodium 154 H D Potassium 3.3 L Chloride 120.7 H Carbon Dioxide 20 L BUN 38 H Creatinine Glucose POC Glucose Lactic Acid Calcium 8.3 L Phosphorus Magnesium AST ALT Alkaline Phosphatase Lactate Dehydrogenase Troponin T C-Reactive Protein NT-Pro-B Natriuret Pep Total Protein Albumin LDL Cholesterol Direct Vitamin B12 Urine WBC (Auto) Fluid Glucose Fluid Total Protein Vancomycin Trough Crossmatch 11/09/21 11/09/21 11/09/21 02:00 02:31 05:12 WBC RBC Hgb Hct MCV MCH MCHC RDW Plt Count Eos % (Auto) Eos # (Auto) Seg Neuts % (Manual) Lymphocytes % (Manual) Seg Neutrophils # Seg Neutrophils # Man Lymphocytes # (Manual) Monocytes # (Manual) PT INR D-Dimer ABG pH 7.479 H ABG pO2 121.3 H ABG HCO3 ABG O2 Saturation ABG Base Excess ABG Hemoglobin 7.3 L Oxyhemoglobin Sodium Potassium Chloride 112.5 H Carbon Dioxide BUN 33 H Creatinine Glucose 161 H POC Glucose 135 H Lactic Acid Calcium Phosphorus Magnesium AST 251 H ALT 481 H Alkaline Phosphatase Lactate Dehydrogenase Troponin T C-Reactive Protein NT-Pro-B Natriuret Pep Total Protein 5.0 L Albumin 2.8 L LDL Cholesterol Direct Vitamin B12 Urine WBC (Auto) Fluid Glucose Fluid Total Protein Vancomycin Trough Crossmatch 11/09/21 11/09/21 11/09/21 11:33 16:32 23:28 WBC RBC Hgb Hct MCV MCH MCHC RDW Plt Count Eos % (Auto) Eos # (Auto) Seg Neuts % (Manual) Lymphocytes % (Manual) Seg Neutrophils # Seg Neutrophils # Man Lymphocytes # (Manual) Monocytes # (Manual) PT INR D-Dimer ABG pH ABG pO2 ABG HCO3 ABG O2 Saturation ABG Base Excess ABG Hemoglobin Oxyhemoglobin Sodium Potassium Chloride Carbon Dioxide BUN Creatinine Glucose POC Glucose 132 H 133 H 143 H Lactic Acid Calcium Phosphorus Magnesium AST ALT Alkaline Phosphatase Lactate Dehydrogenase Troponin T C-Reactive Protein NT-Pro-B Natriuret Pep Total Protein Albumin LDL Cholesterol Direct Vitamin B12 Urine WBC (Auto) Fluid Glucose Fluid Total Protein Vancomycin Trough Crossmatch 11/10/21 11/10/21 11/10/21 04:00 04:00 05:35 WBC 16.0 H RBC 3.61 L Hgb 8.0 L Hct 27.1 L MCV 75 L MCH 22 L MCHC RDW 20.4 H Plt Count Eos % (Auto) Eos # (Auto) Seg Neuts % (Manual) Lymphocytes % (Manual) Seg Neutrophils # Seg Neutrophils # Man Lymphocytes # (Manual) Monocytes # (Manual) PT INR D-Dimer ABG pH ABG pO2 ABG HCO3 ABG O2 Saturation ABG Base Excess ABG Hemoglobin Oxyhemoglobin Sodium 149 H Potassium Chloride 114.1 H Carbon Dioxide BUN 31 H Creatinine Glucose 148 H POC Glucose 132 H Lactic Acid Calcium 8.2 L Phosphorus Magnesium AST ALT Alkaline Phosphatase Lactate Dehydrogenase Troponin T C-Reactive Protein NT-Pro-B Natriuret Pep Total Protein Albumin LDL Cholesterol Direct Vitamin B12 Urine WBC (Auto) Fluid Glucose Fluid Total Protein Vancomycin Trough Crossmatch 11/10/21 11/10/21 11/10/21 11:31 14:08 15:35 WBC RBC Hgb Hct MCV MCH MCHC RDW Plt Count Eos % (Auto) Eos # (Auto) Seg Neuts % (Manual) Lymphocytes % (Manual) Seg Neutrophils # Seg Neutrophils # Man Lymphocytes # (Manual) Monocytes # (Manual) PT INR D-Dimer ABG pH ABG pO2 126.6 H ABG HCO3 ABG O2 Saturation ABG Base Excess ABG Hemoglobin 7.4 L Oxyhemoglobin Sodium Potassium Chloride Carbon Dioxide BUN Creatinine Glucose POC Glucose 147 H Lactic Acid Calcium Phosphorus Magnesium AST ALT Alkaline Phosphatase Lactate Dehydrogenase Troponin T C-Reactive Protein NT-Pro-B Natriuret Pep Total Protein Albumin LDL Cholesterol Direct Vitamin B12 1823 H Urine WBC (Auto) Fluid Glucose Fluid Total Protein Vancomycin Trough Crossmatch 11/10/21 11/11/21 11/11/21 17:53 00:55 04:28 WBC RBC Hgb Hct MCV MCH MCHC RDW Plt Count Eos % (Auto) Eos # (Auto) Seg Neuts % (Manual) Lymphocytes % (Manual) Seg Neutrophils # Seg Neutrophils # Man Lymphocytes # (Manual) Monocytes # (Manual) PT INR D-Dimer ABG pH ABG pO2 ABG HCO3 ABG O2 Saturation ABG Base Excess ABG Hemoglobin Oxyhemoglobin Sodium 149 H Potassium Chloride 112.2 H Carbon Dioxide BUN 34 H Creatinine Glucose 148 H POC Glucose 140 H 145 H Lactic Acid Calcium 7.9 L Phosphorus Magnesium AST 53 H ALT 203 H Alkaline Phosphatase Lactate Dehydrogenase Troponin T C-Reactive Protein NT-Pro-B Natriuret Pep Total Protein 4.9 L Albumin 2.6 L LDL Cholesterol Direct Vitamin B12 Urine WBC (Auto) Fluid Glucose Fluid Total Protein Vancomycin Trough Crossmatch 11/11/21 11/11/21 11/11/21 04:28 04:28 05:28 WBC 20.9 H RBC 3.47 L Hgb 7.5 L Hct 26.0 L MCV 75 L MCH 22 L MCHC 29 L RDW 21.6 H Plt Count 132 L Eos % (Auto) Eos # (Auto) Seg Neuts % (Manual) Lymphocytes % (Manual) Seg Neutrophils # Seg Neutrophils # Man Lymphocytes # (Manual) Monocytes # (Manual) PT INR D-Dimer 2655.00 H ABG pH ABG pO2 ABG HCO3 ABG O2 Saturation ABG Base Excess ABG Hemoglobin Oxyhemoglobin Sodium Potassium Chloride Carbon Dioxide BUN Creatinine Glucose POC Glucose 154 H Lactic Acid Calcium Phosphorus Magnesium AST ALT Alkaline Phosphatase Lactate Dehydrogenase Troponin T C-Reactive Protein NT-Pro-B Natriuret Pep Total Protein Albumin LDL Cholesterol Direct Vitamin B12 Urine WBC (Auto) Fluid Glucose Fluid Total Protein Vancomycin Trough Crossmatch 11/11/21 11/11/21 11/12/21 12:38 18:13 00:14 WBC RBC Hgb Hct MCV MCH MCHC RDW Plt Count Eos % (Auto) Eos # (Auto) Seg Neuts % (Manual) Lymphocytes % (Manual) Seg Neutrophils # Seg Neutrophils # Man Lymphocytes # (Manual) Monocytes # (Manual) PT INR D-Dimer ABG pH ABG pO2 ABG HCO3 ABG O2 Saturation ABG Base Excess ABG Hemoglobin Oxyhemoglobin Sodium Potassium Chloride Carbon Dioxide BUN Creatinine Glucose POC Glucose 137 H 108 H 137 H Lactic Acid Calcium Phosphorus Magnesium AST ALT Alkaline Phosphatase Lactate Dehydrogenase Troponin T C-Reactive Protein NT-Pro-B Natriuret Pep Total Protein Albumin LDL Cholesterol Direct Vitamin B12 Urine WBC (Auto) Fluid Glucose Fluid Total Protein Vancomycin Trough Crossmatch 11/12/21 11/12/21 11/12/21 05:40 06:24 11:12 WBC RBC Hgb Hct MCV MCH MCHC RDW Plt Count Eos % (Auto) Eos # (Auto) Seg Neuts % (Manual) Lymphocytes % (Manual) Seg Neutrophils # Seg Neutrophils # Man Lymphocytes # (Manual) Monocytes # (Manual) PT INR D-Dimer ABG pH 7.586 H ABG pO2 150.6 H ABG HCO3 27.2 H ABG O2 Saturation 99.1 H ABG Base Excess 5.2 H ABG Hemoglobin 7.5 L Oxyhemoglobin Sodium Potassium Chloride Carbon Dioxide BUN Creatinine Glucose POC Glucose 132 H 140 H Lactic Acid Calcium Phosphorus Magnesium AST ALT Alkaline Phosphatase Lactate Dehydrogenase Troponin T C-Reactive Protein NT-Pro-B Natriuret Pep Total Protein Albumin LDL Cholesterol Direct Vitamin B12 Urine WBC (Auto) Fluid Glucose Fluid Total Protein Vancomycin Trough Crossmatch 11/12/21 11/12/21 11/12/21 14:50 14:50 17:13 WBC 19.8 H RBC 3.27 L Hgb 7.1 L Hct 24.5 L MCV 75 L MCH 22 L MCHC 29 L RDW 22.3 H Plt Count Eos % (Auto) Eos # (Auto) Seg Neuts % (Manual) Lymphocytes % (Manual) Seg Neutrophils # Seg Neutrophils # Man Lymphocytes # (Manual) Monocytes # (Manual) PT INR D-Dimer ABG pH ABG pO2 ABG HCO3 ABG O2 Saturation ABG Base Excess ABG Hemoglobin Oxyhemoglobin Sodium 150 H Potassium 3.3 L Chloride 112.0 H Carbon Dioxide BUN 40 H Creatinine Glucose 151 H POC Glucose 121 H Lactic Acid Calcium 7.4 L Phosphorus 1.70 L Magnesium 1.40 L AST ALT Alkaline Phosphatase Lactate Dehydrogenase Troponin T C-Reactive Protein NT-Pro-B Natriuret Pep Total Protein Albumin LDL Cholesterol Direct Vitamin B12 Urine WBC (Auto) Fluid Glucose Fluid Total Protein Vancomycin Trough Crossmatch 11/12/21 11/13/21 11/13/21 23:19 05:34 06:30 WBC RBC Hgb Hct MCV MCH MCHC RDW Plt Count Eos % (Auto) Eos # (Auto) Seg Neuts % (Manual) Lymphocytes % (Manual) Seg Neutrophils # Seg Neutrophils # Man Lymphocytes # (Manual) Monocytes # (Manual) PT INR D-Dimer ABG pH ABG pO2 ABG HCO3 ABG O2 Saturation ABG Base Excess ABG Hemoglobin Oxyhemoglobin Sodium 149 H Potassium Chloride 60.0 L Carbon Dioxide BUN 40 H Creatinine Glucose 146 H POC Glucose 113 H 132 H Lactic Acid Calcium 7.3 L Phosphorus Magnesium 2.40 H AST ALT 72 H Alkaline Phosphatase Lactate Dehydrogenase Troponin T C-Reactive Protein NT-Pro-B Natriuret Pep Total Protein 5.2 L Albumin 2.2 L LDL Cholesterol Direct Vitamin B12 Urine WBC (Auto) Fluid Glucose Fluid Total Protein Vancomycin Trough Crossmatch 11/13/21 11/13/21 11/13/21 06:30 08:30 11:19 WBC 21.2 H RBC 3.12 L Hgb 6.8 L Hct 23.2 L MCV 74 L MCH 22 L MCHC 29 L RDW 22.2 H Plt Count 135 L Eos % (Auto) Eos # (Auto) Seg Neuts % (Manual) Lymphocytes % (Manual) Seg Neutrophils # Seg Neutrophils # Man Lymphocytes # (Manual) Monocytes # (Manual) PT INR D-Dimer ABG pH ABG pO2 ABG HCO3 ABG O2 Saturation ABG Base Excess ABG Hemoglobin Oxyhemoglobin Sodium Potassium Chloride Carbon Dioxide BUN Creatinine Glucose POC Glucose 136 H Lactic Acid Calcium Phosphorus Magnesium AST ALT Alkaline Phosphatase Lactate Dehydrogenase Troponin T C-Reactive Protein NT-Pro-B Natriuret Pep Total Protein Albumin LDL Cholesterol Direct Vitamin B12 Urine WBC (Auto) Fluid Glucose Fluid Total Protein Vancomycin Trough Crossmatch See Detail 11/13/21 11/14/21 11/14/21 18:21 00:01 04:46 WBC 20.0 H RBC 3.41 L Hgb 7.9 L Hct 26.8 L MCV MCH 23 L MCHC 29 L RDW 24.0 H Plt Count Eos % (Auto) Eos # (Auto) Seg Neuts % (Manual) Lymphocytes % (Manual) Seg Neutrophils # Seg Neutrophils # Man Lymphocytes # (Manual) Monocytes # (Manual) PT INR D-Dimer ABG pH ABG pO2 ABG HCO3 ABG O2 Saturation ABG Base Excess ABG Hemoglobin Oxyhemoglobin Sodium Potassium Chloride Carbon Dioxide BUN Creatinine Glucose POC Glucose 149 H 141 H Lactic Acid Calcium Phosphorus Magnesium AST ALT Alkaline Phosphatase Lactate Dehydrogenase Troponin T C-Reactive Protein NT-Pro-B Natriuret Pep Total Protein Albumin LDL Cholesterol Direct Vitamin B12 Urine WBC (Auto) Fluid Glucose Fluid Total Protein Vancomycin Trough Crossmatch 11/14/21 11/14/21 11/14/21 04:46 05:10 11:10 WBC RBC Hgb Hct MCV MCH MCHC RDW Plt Count Eos % (Auto) Eos # (Auto) Seg Neuts % (Manual) Lymphocytes % (Manual) Seg Neutrophils # Seg Neutrophils # Man Lymphocytes # (Manual) Monocytes # (Manual) PT INR D-Dimer ABG pH ABG pO2 ABG HCO3 ABG O2 Saturation ABG Base Excess ABG Hemoglobin Oxyhemoglobin Sodium 148 H Potassium Chloride 113.1 H Carbon Dioxide BUN 43 H Creatinine Glucose 140 H POC Glucose 132 H 133 H Lactic Acid Calcium 7.5 L Phosphorus Magnesium AST ALT Alkaline Phosphatase Lactate Dehydrogenase Troponin T C-Reactive Protein NT-Pro-B Natriuret Pep Total Protein Albumin LDL Cholesterol Direct Vitamin B12 Urine WBC (Auto) Fluid Glucose Fluid Total Protein Vancomycin Trough Crossmatch 11/14/21 11/14/21 11/14/21 16:14 17:48 23:23 WBC RBC Hgb Hct MCV MCH MCHC RDW Plt Count Eos % (Auto) Eos # (Auto) Seg Neuts % (Manual) Lymphocytes % (Manual) Seg Neutrophils # Seg Neutrophils # Man Lymphocytes # (Manual) Monocytes # (Manual) PT INR D-Dimer ABG pH ABG pO2 ABG HCO3 28.0 H ABG O2 Saturation ABG Base Excess 3.1 H ABG Hemoglobin 5.8 L Oxyhemoglobin 94.8 L Sodium Potassium Chloride Carbon Dioxide BUN Creatinine Glucose POC Glucose 130 H 136 H Lactic Acid Calcium Phosphorus Magnesium AST ALT Alkaline Phosphatase Lactate Dehydrogenase Troponin T C-Reactive Protein NT-Pro-B Natriuret Pep Total Protein Albumin LDL Cholesterol Direct Vitamin B12 Urine WBC (Auto) Fluid Glucose Fluid Total Protein Vancomycin Trough Crossmatch 11/15/21 11/15/21 11/15/21 05:20 05:50 05:50 WBC 19.9 H RBC 3.50 L Hgb 8.2 L Hct 27.9 L MCV MCH 23 L MCHC 29 L RDW 24.9 H Plt Count Eos % (Auto) Eos # (Auto) Seg Neuts % (Manual) Lymphocytes % (Manual) Seg Neutrophils # Seg Neutrophils # Man Lymphocytes # (Manual) Monocytes # (Manual) PT INR D-Dimer ABG pH ABG pO2 ABG HCO3 ABG O2 Saturation ABG Base Excess ABG Hemoglobin Oxyhemoglobin Sodium 149 H Potassium Chloride 112.0 H Carbon Dioxide BUN 48 H Creatinine Glucose 152 H POC Glucose 137 H Lactic Acid Calcium 7.9 L Phosphorus Magnesium AST ALT Alkaline Phosphatase Lactate Dehydrogenase Troponin T C-Reactive Protein NT-Pro-B Natriuret Pep Total Protein Albumin LDL Cholesterol Direct Vitamin B12 Urine WBC (Auto) Fluid Glucose Fluid Total Protein Vancomycin Trough Crossmatch 11/15/21 11/15/21 11/15/21 12:12 17:07 23:24 WBC RBC Hgb Hct MCV MCH MCHC RDW Plt Count Eos % (Auto) Eos # (Auto) Seg Neuts % (Manual) Lymphocytes % (Manual) Seg Neutrophils # Seg Neutrophils # Man Lymphocytes # (Manual) Monocytes # (Manual) PT INR D-Dimer ABG pH ABG pO2 ABG HCO3 ABG O2 Saturation ABG Base Excess ABG Hemoglobin Oxyhemoglobin Sodium Potassium Chloride Carbon Dioxide BUN Creatinine Glucose POC Glucose 114 H 135 H 123 H Lactic Acid Calcium Phosphorus Magnesium AST ALT Alkaline Phosphatase Lactate Dehydrogenase Troponin T C-Reactive Protein NT-Pro-B Natriuret Pep Total Protein Albumin LDL Cholesterol Direct Vitamin B12 Urine WBC (Auto) Fluid Glucose Fluid Total Protein Vancomycin Trough Crossmatch 11/16/21 11/16/21 11/16/21 05:21 10:00 10:00 WBC 21.7 H RBC 2.57 L Hgb 6.0 L Hct 20.2 L D MCV MCH 24 L MCHC RDW 26.3 H Plt Count Eos % (Auto) Eos # (Auto) Seg Neuts % (Manual) Lymphocytes % (Manual) Seg Neutrophils # Seg Neutrophils # Man Lymphocytes # (Manual) Monocytes # (Manual) PT INR D-Dimer ABG pH ABG pO2 ABG HCO3 ABG O2 Saturation ABG Base Excess ABG Hemoglobin Oxyhemoglobin Sodium 153 H Potassium Chloride 114.9 H Carbon Dioxide BUN 74 H Creatinine Glucose 155 H POC Glucose 127 H Lactic Acid Calcium 8.1 L Phosphorus Magnesium AST ALT Alkaline Phosphatase Lactate Dehydrogenase Troponin T C-Reactive Protein NT-Pro-B Natriuret Pep Total Protein Albumin LDL Cholesterol Direct Vitamin B12 Urine WBC (Auto) Fluid Glucose Fluid Total Protein Vancomycin Trough Crossmatch 11/16/21 11/16/21 11/16/21 11:34 14:00 15:25 WBC 17.2 H RBC 2.08 L Hgb 4.7 L* Hct 16.2 L* MCV 78 L MCH 23 L MCHC 29 L RDW 26.0 H Plt Count Eos % (Auto) Eos # (Auto) Seg Neuts % (Manual) 87.0 H Lymphocytes % (Manual) 8.0 L Seg Neutrophils # Seg Neutrophils # Man 15.0 H Lymphocytes # (Manual) Monocytes # (Manual) 0.9 H PT INR D-Dimer ABG pH ABG pO2 ABG HCO3 ABG O2 Saturation ABG Base Excess ABG Hemoglobin Oxyhemoglobin Sodium Potassium Chloride Carbon Dioxide BUN Creatinine Glucose POC Glucose 131 H Lactic Acid Calcium Phosphorus Magnesium AST ALT Alkaline Phosphatase Lactate Dehydrogenase Troponin T C-Reactive Protein NT-Pro-B Natriuret Pep Total Protein Albumin LDL Cholesterol Direct Vitamin B12 Urine WBC (Auto) Fluid Glucose Fluid Total Protein Vancomycin Trough Crossmatch See Detail 11/16/21 11/16/21 11/16/21 15:25 17:21 22:43 WBC RBC Hgb 8.6 L D Hct 27.7 L D MCV MCH MCHC RDW Plt Count Eos % (Auto) Eos # (Auto) Seg Neuts % (Manual) Lymphocytes % (Manual) Seg Neutrophils # Seg Neutrophils # Man Lymphocytes # (Manual) Monocytes # (Manual) PT INR D-Dimer ABG pH ABG pO2 ABG HCO3 ABG O2 Saturation ABG Base Excess ABG Hemoglobin Oxyhemoglobin Sodium 148 H Potassium Chloride 113.2 H Carbon Dioxide BUN 84 H Creatinine Glucose 164 H POC Glucose 124 H Lactic Acid Calcium 7.6 L Phosphorus Magnesium AST ALT Alkaline Phosphatase Lactate Dehydrogenase Troponin T C-Reactive Protein NT-Pro-B Natriuret Pep Total Protein Albumin LDL Cholesterol Direct Vitamin B12 Urine WBC (Auto) Fluid Glucose Fluid Total Protein Vancomycin Trough Crossmatch 11/16/21 11/17/21 11/17/21 23:07 05:33 05:56 WBC 25.1 H RBC 3.47 L Hgb 8.7 L Hct 28.5 L MCV MCH 25 L MCHC RDW 22.3 H Plt Count Eos % (Auto) Eos # (Auto) Seg Neuts % (Manual) Lymphocytes % (Manual) Seg Neutrophils # Seg Neutrophils # Man Lymphocytes # (Manual) Monocytes # (Manual) PT INR D-Dimer ABG pH ABG pO2 ABG HCO3 ABG O2 Saturation ABG Base Excess ABG Hemoglobin Oxyhemoglobin Sodium Potassium Chloride Carbon Dioxide BUN Creatinine Glucose POC Glucose 128 H 133 H Lactic Acid Calcium Phosphorus Magnesium AST ALT Alkaline Phosphatase Lactate Dehydrogenase Troponin T C-Reactive Protein NT-Pro-B Natriuret Pep Total Protein Albumin LDL Cholesterol Direct Vitamin B12 Urine WBC (Auto) Fluid Glucose Fluid Total Protein Vancomycin Trough Crossmatch 11/17/21 11/17/21 11/17/21 05:56 11:00 11:55 WBC RBC Hgb 8.3 L Hct 26.9 L MCV MCH MCHC RDW Plt Count Eos % (Auto) Eos # (Auto) Seg Neuts % (Manual) Lymphocytes % (Manual) Seg Neutrophils # Seg Neutrophils # Man Lymphocytes # (Manual) Monocytes # (Manual) PT INR D-Dimer ABG pH ABG pO2 ABG HCO3 ABG O2 Saturation ABG Base Excess ABG Hemoglobin Oxyhemoglobin Sodium 151 H Potassium Chloride 113.6 H Carbon Dioxide BUN 85 H Creatinine Glucose 132 H POC Glucose 121 H Lactic Acid Calcium 7.8 L Phosphorus Magnesium AST ALT Alkaline Phosphatase Lactate Dehydrogenase Troponin T C-Reactive Protein NT-Pro-B Natriuret Pep Total Protein 5.1 L Albumin 2.2 L LDL Cholesterol Direct Vitamin B12 Urine WBC (Auto) Fluid Glucose Fluid Total Protein Vancomycin Trough Crossmatch 11/17/21 11/17/21 11/18/21 18:04 18:55 00:26 WBC RBC Hgb 7.5 L 7.1 L Hct 24.8 L 23.6 L MCV MCH MCHC RDW Plt Count Eos % (Auto) Eos # (Auto) Seg Neuts % (Manual) Lymphocytes % (Manual) Seg Neutrophils # Seg Neutrophils # Man Lymphocytes # (Manual) Monocytes # (Manual) PT INR D-Dimer ABG pH ABG pO2 ABG HCO3 ABG O2 Saturation ABG Base Excess ABG Hemoglobin Oxyhemoglobin Sodium Potassium Chloride Carbon Dioxide BUN Creatinine Glucose POC Glucose 144 H Lactic Acid Calcium Phosphorus Magnesium AST ALT Alkaline Phosphatase Lactate Dehydrogenase Troponin T C-Reactive Protein NT-Pro-B Natriuret Pep Total Protein Albumin LDL Cholesterol Direct Vitamin B12 Urine WBC (Auto) Fluid Glucose Fluid Total Protein Vancomycin Trough Crossmatch 11/18/21 11/18/21 11/18/21 00:43 05:10 05:10 WBC 12.5 H RBC 2.39 L Hgb 6.1 L Hct 20.2 L MCV MCH 25 L MCHC RDW 23.2 H Plt Count Eos % (Auto) Eos # (Auto) Seg Neuts % (Manual) Lymphocytes % (Manual) Seg Neutrophils # Seg Neutrophils # Man Lymphocytes # (Manual) Monocytes # (Manual) PT INR D-Dimer ABG pH ABG pO2 ABG HCO3 ABG O2 Saturation ABG Base Excess ABG Hemoglobin Oxyhemoglobin Sodium 131 L D Potassium 2.9 L* D Chloride 97.8 L Carbon Dioxide BUN 58 H Creatinine Glucose 665 H* POC Glucose 139 H Lactic Acid Calcium 7.0 L Phosphorus 2.20 L D Magnesium 1.50 L AST ALT Alkaline Phosphatase Lactate Dehydrogenase Troponin T C-Reactive Protein NT-Pro-B Natriuret Pep Total Protein Albumin LDL Cholesterol Direct Vitamin B12 Urine WBC (Auto) Fluid Glucose Fluid Total Protein Vancomycin Trough Crossmatch 11/18/21 11/18/21 11/18/21 05:23 07:10 10:45 WBC RBC Hgb Hct MCV MCH MCHC RDW Plt Count Eos % (Auto) Eos # (Auto) Seg Neuts % (Manual) Lymphocytes % (Manual) Seg Neutrophils # Seg Neutrophils # Man Lymphocytes # (Manual) Monocytes # (Manual) PT INR D-Dimer ABG pH ABG pO2 ABG HCO3 ABG O2 Saturation ABG Base Excess ABG Hemoglobin Oxyhemoglobin Sodium 148 H D Potassium 3.1 L Chloride 111.9 H Carbon Dioxide BUN 63 H Creatinine Glucose 141 H POC Glucose 124 H Lactic Acid Calcium 8.1 L D Phosphorus Magnesium AST ALT Alkaline Phosphatase Lactate Dehydrogenase Troponin T C-Reactive Protein NT-Pro-B Natriuret Pep Total Protein Albumin LDL Cholesterol Direct Vitamin B12 Urine WBC (Auto) Fluid Glucose Fluid Total Protein Vancomycin Trough Crossmatch See Detail 11/18/21 11/19/21 11/19/21 11:57 00:19 04:55 WBC RBC 3.35 L Hgb 9.0 L 8.9 L Hct 28.3 L D 28.1 L MCV MCH 27 L MCHC RDW 20.3 H Plt Count Eos % (Auto) Eos # (Auto) Seg Neuts % (Manual) Lymphocytes % (Manual) Seg Neutrophils # Seg Neutrophils # Man Lymphocytes # (Manual) Monocytes # (Manual) PT INR D-Dimer ABG pH ABG pO2 ABG HCO3 ABG O2 Saturation ABG Base Excess ABG Hemoglobin Oxyhemoglobin Sodium Potassium Chloride Carbon Dioxide BUN Creatinine Glucose POC Glucose 119 H Lactic Acid Calcium Phosphorus Magnesium AST ALT Alkaline Phosphatase Lactate Dehydrogenase Troponin T C-Reactive Protein NT-Pro-B Natriuret Pep Total Protein Albumin LDL Cholesterol Direct Vitamin B12 Urine WBC (Auto) Fluid Glucose Fluid Total Protein Vancomycin Trough Crossmatch 11/19/21 11/19/21 11/20/21 04:55 05:42 00:55 WBC RBC Hgb 9.0 L Hct 28.6 L MCV MCH MCHC RDW Plt Count Eos % (Auto) Eos # (Auto) Seg Neuts % (Manual) Lymphocytes % (Manual) Seg Neutrophils # Seg Neutrophils # Man Lymphocytes # (Manual) Monocytes # (Manual) PT INR D-Dimer ABG pH ABG pO2 ABG HCO3 ABG O2 Saturation ABG Base Excess ABG Hemoglobin Oxyhemoglobin Sodium Potassium 3.5 L Chloride 108.6 H Carbon Dioxide BUN 47 H Creatinine Glucose 207 H POC Glucose 63 L Lactic Acid Calcium 7.1 L Phosphorus Magnesium AST ALT Alkaline Phosphatase Lactate Dehydrogenase Troponin T C-Reactive Protein NT-Pro-B Natriuret Pep Total Protein Albumin LDL Cholesterol Direct Vitamin B12 Urine WBC (Auto) Fluid Glucose Fluid Total Protein Vancomycin Trough Crossmatch 11/20/21 11/20/21 11/20/21 05:40 05:40 Unknown WBC RBC 3.40 L Hgb 9.1 L Hct 28.8 L MCV MCH 27 L MCHC RDW 20.7 H Plt Count Eos % (Auto) Eos # (Auto) Seg Neuts % (Manual) Lymphocytes % (Manual) Seg Neutrophils # Seg Neutrophils # Man Lymphocytes # (Manual) Monocytes # (Manual) PT INR D-Dimer ABG pH ABG pO2 ABG HCO3 ABG O2 Saturation ABG Base Excess -2.7 L ABG Hemoglobin 9.5 L Oxyhemoglobin 94.3 L Sodium Potassium 3.5 L Chloride 108.9 H Carbon Dioxide BUN 37 H Creatinine Glucose 117 H POC Glucose Lactic Acid Calcium 7.5 L Phosphorus Magnesium AST ALT Alkaline Phosphatase Lactate Dehydrogenase Troponin T C-Reactive Protein NT-Pro-B Natriuret Pep Total Protein Albumin LDL Cholesterol Direct Vitamin B12 Urine WBC (Auto) Fluid Glucose Fluid Total Protein Vancomycin Trough Crossmatch 11/21/21 11/21/21 11/21/21 04:30 04:30 16:00 WBC RBC 3.25 L Hgb 8.6 L Hct 28.1 L MCV MCH 26 L MCHC RDW 20.7 H Plt Count Eos % (Auto) Eos # (Auto) Seg Neuts % (Manual) Lymphocytes % (Manual) Seg Neutrophils # Seg Neutrophils # Man Lymphocytes # (Manual) Monocytes # (Manual) PT INR D-Dimer ABG pH ABG pO2 114.2 H ABG HCO3 ABG O2 Saturation ABG Base Excess ABG Hemoglobin 9.1 L Oxyhemoglobin Sodium 134 L Potassium Chloride Carbon Dioxide 20 L BUN 34 H Creatinine Glucose POC Glucose Lactic Acid Calcium 7.1 L Phosphorus Magnesium AST ALT Alkaline Phosphatase Lactate Dehydrogenase Troponin T C-Reactive Protein NT-Pro-B Natriuret Pep Total Protein Albumin LDL Cholesterol Direct Vitamin B12 Urine WBC (Auto) Fluid Glucose Fluid Total Protein Vancomycin Trough Crossmatch 11/22/21 11/22/21 11/22/21 07:07 07:07 23:54 WBC RBC 3.30 L Hgb 9.0 L Hct 28.5 L MCV MCH 27 L MCHC RDW 21.0 H Plt Count Eos % (Auto) Eos # (Auto) Seg Neuts % (Manual) Lymphocytes % (Manual) Seg Neutrophils # Seg Neutrophils # Man Lymphocytes # (Manual) Monocytes # (Manual) PT INR D-Dimer ABG pH ABG pO2 ABG HCO3 ABG O2 Saturation ABG Base Excess ABG Hemoglobin Oxyhemoglobin Sodium Potassium Chloride Carbon Dioxide BUN 32 H Creatinine Glucose 106 H POC Glucose 110 H Lactic Acid Calcium 7.5 L Phosphorus Magnesium AST ALT Alkaline Phosphatase Lactate Dehydrogenase Troponin T C-Reactive Protein NT-Pro-B Natriuret Pep Total Protein Albumin LDL Cholesterol Direct Vitamin B12 Urine WBC (Auto) Fluid Glucose Fluid Total Protein Vancomycin Trough Crossmatch 11/23/21 11/23/21 11/23/21 04:38 04:38 06:01 WBC RBC 3.23 L Hgb 8.8 L Hct 28.0 L MCV MCH 27 L MCHC RDW 21.3 H Plt Count Eos % (Auto) Eos # (Auto) Seg Neuts % (Manual) Lymphocytes % (Manual) Seg Neutrophils # Seg Neutrophils # Man Lymphocytes # (Manual) Monocytes # (Manual) PT INR D-Dimer ABG pH ABG pO2 ABG HCO3 ABG O2 Saturation ABG Base Excess ABG Hemoglobin Oxyhemoglobin Sodium 136 L Potassium Chloride Carbon Dioxide 20 L BUN 32 H Creatinine Glucose 109 H POC Glucose 115 H Lactic Acid Calcium 7.7 L Phosphorus Magnesium AST ALT Alkaline Phosphatase Lactate Dehydrogenase Troponin T C-Reactive Protein NT-Pro-B Natriuret Pep Total Protein Albumin LDL Cholesterol Direct Vitamin B12 Urine WBC (Auto) Fluid Glucose Fluid Total Protein Vancomycin Trough Crossmatch 11/23/21 11/24/21 11/24/21 11:40 00:03 04:13 WBC RBC 3.18 L Hgb 8.5 L Hct 27.5 L MCV MCH 27 L MCHC RDW 21.6 H Plt Count Eos % (Auto) Eos # (Auto) Seg Neuts % (Manual) Lymphocytes % (Manual) Seg Neutrophils # Seg Neutrophils # Man Lymphocytes # (Manual) Monocytes # (Manual) PT INR D-Dimer ABG pH ABG pO2 ABG HCO3 ABG O2 Saturation ABG Base Excess ABG Hemoglobin Oxyhemoglobin Sodium Potassium Chloride Carbon Dioxide BUN Creatinine Glucose POC Glucose 117 H 111 H Lactic Acid Calcium Phosphorus Magnesium AST ALT Alkaline Phosphatase Lactate Dehydrogenase Troponin T C-Reactive Protein NT-Pro-B Natriuret Pep Total Protein Albumin LDL Cholesterol Direct Vitamin B12 Urine WBC (Auto) Fluid Glucose Fluid Total Protein Vancomycin Trough Crossmatch 11/24/21 11/24/21 11/24/21 04:13 05:30 11:10 WBC RBC Hgb Hct MCV MCH MCHC RDW Plt Count Eos % (Auto) Eos # (Auto) Seg Neuts % (Manual) Lymphocytes % (Manual) Seg Neutrophils # Seg Neutrophils # Man Lymphocytes # (Manual) Monocytes # (Manual) PT INR D-Dimer ABG pH ABG pO2 ABG HCO3 ABG O2 Saturation ABG Base Excess ABG Hemoglobin Oxyhemoglobin Sodium Potassium Chloride Carbon Dioxide BUN 31 H Creatinine Glucose 101 H POC Glucose 115 H 107 H Lactic Acid Calcium 7.7 L Phosphorus Magnesium AST ALT Alkaline Phosphatase Lactate Dehydrogenase Troponin T C-Reactive Protein NT-Pro-B Natriuret Pep Total Protein Albumin LDL Cholesterol Direct Vitamin B12 Urine WBC (Auto) Fluid Glucose Fluid Total Protein Vancomycin Trough Crossmatch 11/24/21 11/24/21 11/25/21 16:34 17:57 05:12 WBC RBC 3.11 L Hgb 8.2 L Hct 26.6 L MCV MCH 26 L MCHC RDW 21.3 H Plt Count Eos % (Auto) Eos # (Auto) Seg Neuts % (Manual) Lymphocytes % (Manual) Seg Neutrophils # Seg Neutrophils # Man Lymphocytes # (Manual) Monocytes # (Manual) PT INR D-Dimer ABG pH ABG pO2 ABG HCO3 ABG O2 Saturation ABG Base Excess ABG Hemoglobin Oxyhemoglobin Sodium Potassium Chloride Carbon Dioxide BUN Creatinine Glucose POC Glucose 115 H 110 H Lactic Acid Calcium Phosphorus Magnesium AST ALT Alkaline Phosphatase Lactate Dehydrogenase Troponin T C-Reactive Protein NT-Pro-B Natriuret Pep Total Protein Albumin LDL Cholesterol Direct Vitamin B12 Urine WBC (Auto) Fluid Glucose Fluid Total Protein Vancomycin Trough Crossmatch 11/25/21 11/25/21 11/26/21 05:12 11:20 05:00 WBC RBC 3.30 L Hgb 8.8 L Hct 28.2 L MCV MCH 27 L MCHC RDW 20.7 H Plt Count Eos % (Auto) Eos # (Auto) Seg Neuts % (Manual) Lymphocytes % (Manual) Seg Neutrophils # Seg Neutrophils # Man Lymphocytes # (Manual) Monocytes # (Manual) PT INR D-Dimer ABG pH ABG pO2 ABG HCO3 ABG O2 Saturation ABG Base Excess ABG Hemoglobin Oxyhemoglobin Sodium Potassium Chloride Carbon Dioxide BUN 32 H Creatinine Glucose 118 H POC Glucose 118 H Lactic Acid Calcium 8.2 L Phosphorus Magnesium AST ALT Alkaline Phosphatase Lactate Dehydrogenase Troponin T C-Reactive Protein NT-Pro-B Natriuret Pep Total Protein Albumin LDL Cholesterol Direct Vitamin B12 Urine WBC (Auto) Fluid Glucose Fluid Total Protein Vancomycin Trough Crossmatch 11/26/21 11/26/21 11/26/21 05:00 05:00 05:44 WBC RBC Hgb Hct MCV MCH MCHC RDW Plt Count Eos % (Auto) Eos # (Auto) Seg Neuts % (Manual) Lymphocytes % (Manual) Seg Neutrophils # Seg Neutrophils # Man Lymphocytes # (Manual) Monocytes # (Manual) PT 16.9 H INR 1.24 H D-Dimer ABG pH ABG pO2 ABG HCO3 ABG O2 Saturation ABG Base Excess ABG Hemoglobin Oxyhemoglobin Sodium Potassium Chloride Carbon Dioxide BUN 31 H Creatinine Glucose 104 H POC Glucose 110 H Lactic Acid Calcium 7.9 L Phosphorus Magnesium AST ALT Alkaline Phosphatase Lactate Dehydrogenase Troponin T C-Reactive Protein NT-Pro-B Natriuret Pep Total Protein Albumin LDL Cholesterol Direct Vitamin B12 Urine WBC (Auto) Fluid Glucose Fluid Total Protein Vancomycin Trough Crossmatch 11/26/21 11/27/21 11/27/21 23:55 07:40 07:40 WBC RBC 3.18 L Hgb 8.5 L Hct 27.0 L MCV MCH 27 L MCHC RDW 21.2 H Plt Count Eos % (Auto) Eos # (Auto) Seg Neuts % (Manual) Lymphocytes % (Manual) Seg Neutrophils # Seg Neutrophils # Man Lymphocytes # (Manual) Monocytes # (Manual) PT INR D-Dimer ABG pH ABG pO2 ABG HCO3 ABG O2 Saturation ABG Base Excess ABG Hemoglobin Oxyhemoglobin Sodium Potassium Chloride Carbon Dioxide BUN 27 H Creatinine Glucose 112 H POC Glucose 63 L Lactic Acid Calcium 7.6 L Phosphorus Magnesium AST ALT Alkaline Phosphatase Lactate Dehydrogenase Troponin T C-Reactive Protein NT-Pro-B Natriuret Pep Total Protein Albumin LDL Cholesterol Direct Vitamin B12 Urine WBC (Auto) Fluid Glucose Fluid Total Protein Vancomycin Trough Crossmatch 11/27/21 11/27/21 11/27/21 12:04 13:40 13:40 WBC RBC 3.31 L Hgb 8.7 L Hct 28.0 L MCV MCH 26 L MCHC RDW 20.7 H Plt Count Eos % (Auto) Eos # (Auto) Seg Neuts % (Manual) Lymphocytes % (Manual) Seg Neutrophils # Seg Neutrophils # Man Lymphocytes # (Manual) Monocytes # (Manual) PT INR D-Dimer ABG pH ABG pO2 ABG HCO3 ABG O2 Saturation ABG Base Excess ABG Hemoglobin Oxyhemoglobin Sodium 136 L Potassium Chloride Carbon Dioxide BUN 25 H Creatinine Glucose 127 H POC Glucose 109 H Lactic Acid Calcium 7.6 L Phosphorus Magnesium 1.40 L AST ALT Alkaline Phosphatase Lactate Dehydrogenase Troponin T C-Reactive Protein NT-Pro-B Natriuret Pep Total Protein Albumin LDL Cholesterol Direct Vitamin B12 Urine WBC (Auto) Fluid Glucose Fluid Total Protein Vancomycin Trough Crossmatch 11/27/21 11/27/21 11/28/21 17:44 23:33 12:20 WBC RBC Hgb Hct MCV MCH MCHC RDW Plt Count Eos % (Auto) Eos # (Auto) Seg Neuts % (Manual) Lymphocytes % (Manual) Seg Neutrophils # Seg Neutrophils # Man Lymphocytes # (Manual) Monocytes # (Manual) PT INR D-Dimer ABG pH ABG pO2 ABG HCO3 ABG O2 Saturation ABG Base Excess ABG Hemoglobin Oxyhemoglobin Sodium Potassium Chloride Carbon Dioxide BUN Creatinine Glucose POC Glucose 107 H 108 H 114 H Lactic Acid Calcium Phosphorus Magnesium AST ALT Alkaline Phosphatase Lactate Dehydrogenase Troponin T C-Reactive Protein NT-Pro-B Natriuret Pep Total Protein Albumin LDL Cholesterol Direct Vitamin B12 Urine WBC (Auto) Fluid Glucose Fluid Total Protein Vancomycin Trough Crossmatch 11/29/21 11/29/21 11/29/21 00:09 03:20 03:20 WBC RBC 3.05 L Hgb 8.2 L Hct 25.8 L MCV MCH 27 L MCHC RDW 20.9 H Plt Count Eos % (Auto) Eos # (Auto) Seg Neuts % (Manual) Lymphocytes % (Manual) Seg Neutrophils # Seg Neutrophils # Man Lymphocytes # (Manual) Monocytes # (Manual) PT INR D-Dimer ABG pH ABG pO2 ABG HCO3 ABG O2 Saturation ABG Base Excess ABG Hemoglobin Oxyhemoglobin Sodium 133 L Potassium Chloride Carbon Dioxide BUN 24 H Creatinine Glucose 137 H POC Glucose 134 H Lactic Acid Calcium 7.4 L Phosphorus Magnesium AST ALT Alkaline Phosphatase Lactate Dehydrogenase Troponin T C-Reactive Protein NT-Pro-B Natriuret Pep Total Protein Albumin LDL Cholesterol Direct Vitamin B12 Urine WBC (Auto) Fluid Glucose Fluid Total Protein Vancomycin Trough Crossmatch 11/29/21 11/29/21 11/29/21 05:38 11:39 17:11 WBC RBC Hgb Hct MCV MCH MCHC RDW Plt Count Eos % (Auto) Eos # (Auto) Seg Neuts % (Manual) Lymphocytes % (Manual) Seg Neutrophils # Seg Neutrophils # Man Lymphocytes # (Manual) Monocytes # (Manual) PT INR D-Dimer ABG pH ABG pO2 ABG HCO3 ABG O2 Saturation ABG Base Excess ABG Hemoglobin Oxyhemoglobin Sodium Potassium Chloride Carbon Dioxide BUN Creatinine Glucose POC Glucose 117 H 143 H 124 H Lactic Acid Calcium Phosphorus Magnesium AST ALT Alkaline Phosphatase Lactate Dehydrogenase Troponin T C-Reactive Protein NT-Pro-B Natriuret Pep Total Protein Albumin LDL Cholesterol Direct Vitamin B12 Urine WBC (Auto) Fluid Glucose Fluid Total Protein Vancomycin Trough Crossmatch 11/29/21 11/30/21 11/30/21 20:15 05:40 05:40 WBC 12.6 H RBC 3.41 L Hgb 9.1 L Hct 28.9 L MCV MCH 27 L MCHC RDW 20.4 H Plt Count Eos % (Auto) Eos # (Auto) Seg Neuts % (Manual) Lymphocytes % (Manual) Seg Neutrophils # Seg Neutrophils # Man Lymphocytes # (Manual) Monocytes # (Manual) PT INR D-Dimer ABG pH ABG pO2 ABG HCO3 ABG O2 Saturation ABG Base Excess ABG Hemoglobin Oxyhemoglobin Sodium Potassium Chloride Carbon Dioxide BUN 24 H Creatinine Glucose 131 H POC Glucose Lactic Acid Calcium 7.6 L Phosphorus Magnesium AST ALT Alkaline Phosphatase Lactate Dehydrogenase Troponin T 0.045 H C-Reactive Protein NT-Pro-B Natriuret Pep Total Protein Albumin LDL Cholesterol Direct 25 L Vitamin B12 Urine WBC (Auto) Fluid Glucose Fluid Total Protein Vancomycin Trough Crossmatch 11/30/21 11/30/21 12/01/21 11:29 16:51 05:00 WBC RBC 2.97 L Hgb 8.0 L Hct 25.0 L MCV MCH 27 L MCHC RDW 20.8 H Plt Count Eos % (Auto) Eos # (Auto) Seg Neuts % (Manual) Lymphocytes % (Manual) Seg Neutrophils # Seg Neutrophils # Man Lymphocytes # (Manual) Monocytes # (Manual) PT INR D-Dimer ABG pH ABG pO2 ABG HCO3 ABG O2 Saturation ABG Base Excess ABG Hemoglobin Oxyhemoglobin Sodium Potassium Chloride Carbon Dioxide BUN Creatinine Glucose POC Glucose 123 H 114 H Lactic Acid Calcium Phosphorus Magnesium AST ALT Alkaline Phosphatase Lactate Dehydrogenase Troponin T C-Reactive Protein NT-Pro-B Natriuret Pep Total Protein Albumin LDL Cholesterol Direct Vitamin B12 Urine WBC (Auto) Fluid Glucose Fluid Total Protein Vancomycin Trough Crossmatch 12/01/21 12/01/21 12/01/21 05:00 05:25 11:54 WBC RBC Hgb Hct MCV MCH MCHC RDW Plt Count Eos % (Auto) Eos # (Auto) Seg Neuts % (Manual) Lymphocytes % (Manual) Seg Neutrophils # Seg Neutrophils # Man Lymphocytes # (Manual) Monocytes # (Manual) PT INR D-Dimer ABG pH ABG pO2 ABG HCO3 ABG O2 Saturation ABG Base Excess ABG Hemoglobin Oxyhemoglobin Sodium 136 L Potassium Chloride Carbon Dioxide BUN 24 H Creatinine Glucose 117 H POC Glucose 108 H 107 H Lactic Acid Calcium 7.5 L Phosphorus Magnesium 1.60 L AST ALT Alkaline Phosphatase Lactate Dehydrogenase Troponin T C-Reactive Protein NT-Pro-B Natriuret Pep Total Protein Albumin LDL Cholesterol Direct Vitamin B12 Urine WBC (Auto) Fluid Glucose Fluid Total Protein Vancomycin Trough Crossmatch 12/01/21 12/02/21 12/02/21 17:40 00:07 04:20 WBC RBC 2.92 L Hgb 7.7 L Hct 24.3 L MCV MCH 26 L MCHC RDW 20.5 H Plt Count Eos % (Auto) Eos # (Auto) Seg Neuts % (Manual) Lymphocytes % (Manual) Seg Neutrophils # Seg Neutrophils # Man Lymphocytes # (Manual) Monocytes # (Manual) PT INR D-Dimer ABG pH ABG pO2 ABG HCO3 ABG O2 Saturation ABG Base Excess ABG Hemoglobin Oxyhemoglobin Sodium Potassium Chloride Carbon Dioxide BUN Creatinine Glucose POC Glucose 123 H 110 H Lactic Acid Calcium Phosphorus Magnesium AST ALT Alkaline Phosphatase Lactate Dehydrogenase Troponin T C-Reactive Protein NT-Pro-B Natriuret Pep Total Protein Albumin LDL Cholesterol Direct Vitamin B12 Urine WBC (Auto) Fluid Glucose Fluid Total Protein Vancomycin Trough Crossmatch 12/02/21 12/02/21 12/02/21 04:20 11:17 18:20 WBC RBC Hgb Hct MCV MCH MCHC RDW Plt Count Eos % (Auto) Eos # (Auto) Seg Neuts % (Manual) Lymphocytes % (Manual) Seg Neutrophils # Seg Neutrophils # Man Lymphocytes # (Manual) Monocytes # (Manual) PT INR D-Dimer ABG pH ABG pO2 ABG HCO3 ABG O2 Saturation ABG Base Excess ABG Hemoglobin Oxyhemoglobin Sodium 135 L Potassium Chloride Carbon Dioxide BUN 26 H Creatinine Glucose 121 H POC Glucose 117 H 113 H Lactic Acid Calcium 7.4 L Phosphorus Magnesium AST ALT Alkaline Phosphatase Lactate Dehydrogenase Troponin T C-Reactive Protein NT-Pro-B Natriuret Pep Total Protein Albumin LDL Cholesterol Direct Vitamin B12 Urine WBC (Auto) Fluid Glucose Fluid Total Protein Vancomycin Trough Crossmatch 12/03/21 12/03/21 12/03/21 00:12 04:00 04:00 WBC RBC 2.99 L Hgb 7.8 L Hct 24.6 L MCV MCH 26 L MCHC RDW 20.2 H Plt Count Eos % (Auto) Eos # (Auto) Seg Neuts % (Manual) Lymphocytes % (Manual) Seg Neutrophils # Seg Neutrophils # Man Lymphocytes # (Manual) Monocytes # (Manual) PT INR D-Dimer ABG pH ABG pO2 ABG HCO3 ABG O2 Saturation ABG Base Excess ABG Hemoglobin Oxyhemoglobin Sodium 136 L Potassium Chloride Carbon Dioxide BUN 27 H Creatinine Glucose 133 H POC Glucose 121 H Lactic Acid Calcium 7.5 L Phosphorus Magnesium AST ALT Alkaline Phosphatase Lactate Dehydrogenase Troponin T C-Reactive Protein NT-Pro-B Natriuret Pep Total Protein Albumin LDL Cholesterol Direct Vitamin B12 Urine WBC (Auto) Fluid Glucose Fluid Total Protein Vancomycin Trough Crossmatch 12/03/21 12/03/21 12/03/21 06:30 11:13 16:00 WBC RBC Hgb Hct MCV MCH MCHC RDW Plt Count Eos % (Auto) Eos # (Auto) Seg Neuts % (Manual) Lymphocytes % (Manual) Seg Neutrophils # Seg Neutrophils # Man Lymphocytes # (Manual) Monocytes # (Manual) PT INR D-Dimer ABG pH ABG pO2 ABG HCO3 ABG O2 Saturation ABG Base Excess ABG Hemoglobin Oxyhemoglobin Sodium Potassium Chloride Carbon Dioxide BUN Creatinine Glucose POC Glucose 129 H 125 H 125 H Lactic Acid Calcium Phosphorus Magnesium AST ALT Alkaline Phosphatase Lactate Dehydrogenase Troponin T C-Reactive Protein NT-Pro-B Natriuret Pep Total Protein Albumin LDL Cholesterol Direct Vitamin B12 Urine WBC (Auto) Fluid Glucose Fluid Total Protein Vancomycin Trough Crossmatch 12/03/21 12/04/21 12/04/21 23:32 04:00 05:36 WBC RBC Hgb Hct MCV MCH MCHC RDW Plt Count Eos % (Auto) Eos # (Auto) Seg Neuts % (Manual) Lymphocytes % (Manual) Seg Neutrophils # Seg Neutrophils # Man Lymphocytes # (Manual) Monocytes # (Manual) PT INR D-Dimer ABG pH ABG pO2 ABG HCO3 ABG O2 Saturation ABG Base Excess ABG Hemoglobin Oxyhemoglobin Sodium Potassium 3.5 L Chloride Carbon Dioxide BUN 26 H Creatinine 0.5 L Glucose 151 H POC Glucose 133 H 142 H Lactic Acid Calcium 8.3 L Phosphorus Magnesium AST ALT Alkaline Phosphatase Lactate Dehydrogenase Troponin T C-Reactive Protein NT-Pro-B Natriuret Pep Total Protein Albumin LDL Cholesterol Direct Vitamin B12 Urine WBC (Auto) Fluid Glucose Fluid Total Protein Vancomycin Trough Crossmatch 12/04/21 12/04/21 12/05/21 11:24 15:58 04:36 WBC RBC Hgb Hct MCV MCH MCHC RDW Plt Count Eos % (Auto) Eos # (Auto) Seg Neuts % (Manual) Lymphocytes % (Manual) Seg Neutrophils # Seg Neutrophils # Man Lymphocytes # (Manual) Monocytes # (Manual) PT INR D-Dimer ABG pH ABG pO2 ABG HCO3 ABG O2 Saturation ABG Base Excess ABG Hemoglobin Oxyhemoglobin Sodium Potassium Chloride Carbon Dioxide BUN 21 H Creatinine 0.5 L Glucose 119 H POC Glucose 130 H 111 H Lactic Acid Calcium 8.3 L Phosphorus Magnesium AST ALT Alkaline Phosphatase Lactate Dehydrogenase Troponin T C-Reactive Protein NT-Pro-B Natriuret Pep Total Protein Albumin LDL Cholesterol Direct Vitamin B12 Urine WBC (Auto) Fluid Glucose Fluid Total Protein Vancomycin Trough Crossmatch 12/05/21 12/05/21 12/05/21 05:15 10:40 11:12 WBC RBC 2.98 L Hgb 8.1 L Hct 24.6 L MCV MCH 27 L MCHC RDW 20.8 H Plt Count Eos % (Auto) Eos # (Auto) Seg Neuts % (Manual) Lymphocytes % (Manual) Seg Neutrophils # Seg Neutrophils # Man Lymphocytes # (Manual) Monocytes # (Manual) PT INR D-Dimer ABG pH ABG pO2 ABG HCO3 ABG O2 Saturation ABG Base Excess ABG Hemoglobin Oxyhemoglobin Sodium Potassium Chloride Carbon Dioxide BUN Creatinine Glucose POC Glucose 107 H 110 H Lactic Acid Calcium Phosphorus Magnesium AST ALT Alkaline Phosphatase Lactate Dehydrogenase Troponin T C-Reactive Protein NT-Pro-B Natriuret Pep Total Protein Albumin LDL Cholesterol Direct Vitamin B12 Urine WBC (Auto) Fluid Glucose Fluid Total Protein Vancomycin Trough Crossmatch 12/05/21 12/06/21 12/06/21 23:39 04:25 04:25 WBC RBC 2.95 L Hgb 7.9 L Hct 24.7 L MCV MCH 27 L MCHC RDW 20.9 H Plt Count Eos % (Auto) Eos # (Auto) Seg Neuts % (Manual) Lymphocytes % (Manual) Seg Neutrophils # Seg Neutrophils # Man Lymphocytes # (Manual) Monocytes # (Manual) PT INR D-Dimer ABG pH ABG pO2 ABG HCO3 ABG O2 Saturation ABG Base Excess ABG Hemoglobin Oxyhemoglobin Sodium Potassium Chloride Carbon Dioxide BUN 22 H Creatinine 0.5 L Glucose 136 H POC Glucose 118 H Lactic Acid Calcium 8.2 L Phosphorus Magnesium AST ALT Alkaline Phosphatase Lactate Dehydrogenase Troponin T C-Reactive Protein NT-Pro-B Natriuret Pep Total Protein Albumin LDL Cholesterol Direct Vitamin B12 Urine WBC (Auto) Fluid Glucose Fluid Total Protein Vancomycin Trough Crossmatch 12/06/21 12/06/21 12/07/21 05:28 11:27 04:00 WBC RBC Hgb 7.2 L Hct 21.8 L MCV MCH MCHC RDW Plt Count Eos % (Auto) Eos # (Auto) Seg Neuts % (Manual) Lymphocytes % (Manual) Seg Neutrophils # Seg Neutrophils # Man Lymphocytes # (Manual) Monocytes # (Manual) PT INR D-Dimer ABG pH ABG pO2 ABG HCO3 ABG O2 Saturation ABG Base Excess ABG Hemoglobin Oxyhemoglobin Sodium Potassium Chloride Carbon Dioxide BUN Creatinine Glucose POC Glucose 142 H 126 H Lactic Acid Calcium Phosphorus Magnesium AST ALT Alkaline Phosphatase Lactate Dehydrogenase Troponin T C-Reactive Protein NT-Pro-B Natriuret Pep Total Protein Albumin LDL Cholesterol Direct Vitamin B12 Urine WBC (Auto) Fluid Glucose Fluid Total Protein Vancomycin Trough Crossmatch 12/07/21 12/07/21 12/07/21 04:00 05:30 11:12 WBC RBC Hgb Hct MCV MCH MCHC RDW Plt Count Eos % (Auto) Eos # (Auto) Seg Neuts % (Manual) Lymphocytes % (Manual) Seg Neutrophils # Seg Neutrophils # Man Lymphocytes # (Manual) Monocytes # (Manual) PT INR D-Dimer ABG pH ABG pO2 ABG HCO3 ABG O2 Saturation ABG Base Excess ABG Hemoglobin Oxyhemoglobin Sodium Potassium Chloride Carbon Dioxide BUN 22 H Creatinine Glucose 119 H POC Glucose 121 H 124 H Lactic Acid Calcium 8.0 L Phosphorus Magnesium AST ALT Alkaline Phosphatase Lactate Dehydrogenase Troponin T C-Reactive Protein NT-Pro-B Natriuret Pep Total Protein Albumin LDL Cholesterol Direct Vitamin B12 Urine WBC (Auto) Fluid Glucose Fluid Total Protein Vancomycin Trough Crossmatch 12/08/21 12/08/21 12/08/21 04:00 04:00 05:39 WBC RBC 2.81 L Hgb 7.7 L Hct 23.5 L MCV MCH MCHC RDW 21.2 H Plt Count Eos % (Auto) Eos # (Auto) Seg Neuts % (Manual) Lymphocytes % (Manual) Seg Neutrophils # Seg Neutrophils # Man Lymphocytes # (Manual) Monocytes # (Manual) PT INR D-Dimer ABG pH ABG pO2 ABG HCO3 ABG O2 Saturation ABG Base Excess ABG Hemoglobin Oxyhemoglobin Sodium 135 L Potassium Chloride Carbon Dioxide BUN 23 H Creatinine Glucose 109 H POC Glucose 112 H Lactic Acid Calcium Phosphorus Magnesium AST ALT Alkaline Phosphatase Lactate Dehydrogenase Troponin T C-Reactive Protein NT-Pro-B Natriuret Pep Total Protein Albumin LDL Cholesterol Direct Vitamin B12 Urine WBC (Auto) Fluid Glucose Fluid Total Protein Vancomycin Trough Crossmatch 12/08/21 12/09/21 12/09/21 11:03 04:20 04:20 WBC RBC 2.67 L Hgb 7.6 L Hct 22.1 L MCV MCH MCHC RDW 20.8 H Plt Count Eos % (Auto) Eos # (Auto) Seg Neuts % (Manual) Lymphocytes % (Manual) Seg Neutrophils # Seg Neutrophils # Man Lymphocytes # (Manual) Monocytes # (Manual) PT INR D-Dimer ABG pH ABG pO2 ABG HCO3 ABG O2 Saturation ABG Base Excess ABG Hemoglobin Oxyhemoglobin Sodium 135 L Potassium Chloride 97.8 L Carbon Dioxide BUN 26 H Creatinine Glucose 119 H POC Glucose 108 H Lactic Acid Calcium 7.7 L Phosphorus Magnesium AST ALT Alkaline Phosphatase Lactate Dehydrogenase Troponin T C-Reactive Protein NT-Pro-B Natriuret Pep Total Protein Albumin LDL Cholesterol Direct Vitamin B12 Urine WBC (Auto) Fluid Glucose Fluid Total Protein Vancomycin Trough Crossmatch 12/09/21 12/10/21 12/10/21 11:26 04:33 11:12 WBC RBC Hgb Hct MCV MCH MCHC RDW Plt Count Eos % (Auto) Eos # (Auto) Seg Neuts % (Manual) Lymphocytes % (Manual) Seg Neutrophils # Seg Neutrophils # Man Lymphocytes # (Manual) Monocytes # (Manual) PT INR D-Dimer ABG pH ABG pO2 ABG HCO3 ABG O2 Saturation ABG Base Excess ABG Hemoglobin Oxyhemoglobin Sodium 136 L Potassium Chloride Carbon Dioxide BUN 27 H Creatinine Glucose 117 H POC Glucose 110 H 117 H Lactic Acid Calcium 8.2 L Phosphorus Magnesium AST ALT Alkaline Phosphatase Lactate Dehydrogenase Troponin T C-Reactive Protein NT-Pro-B Natriuret Pep Total Protein Albumin LDL Cholesterol Direct Vitamin B12 Urine WBC (Auto) Fluid Glucose Fluid Total Protein Vancomycin Trough Crossmatch 12/10/21 12/10/21 12/11/21 16:02 23:31 04:35 WBC RBC 2.57 L Hgb 7.0 L Hct 21.4 L MCV MCH 27 L MCHC RDW 21.1 H Plt Count Eos % (Auto) Eos # (Auto) Seg Neuts % (Manual) Lymphocytes % (Manual) Seg Neutrophils # Seg Neutrophils # Man Lymphocytes # (Manual) Monocytes # (Manual) PT INR D-Dimer ABG pH ABG pO2 ABG HCO3 ABG O2 Saturation ABG Base Excess ABG Hemoglobin Oxyhemoglobin Sodium Potassium Chloride Carbon Dioxide BUN Creatinine Glucose POC Glucose 137 H 111 H Lactic Acid Calcium Phosphorus Magnesium AST ALT Alkaline Phosphatase Lactate Dehydrogenase Troponin T C-Reactive Protein NT-Pro-B Natriuret Pep Total Protein Albumin LDL Cholesterol Direct Vitamin B12 Urine WBC (Auto) Fluid Glucose Fluid Total Protein Vancomycin Trough Crossmatch 12/11/21 12/11/21 12/11/21 04:35 12:46 16:07 WBC RBC Hgb Hct MCV MCH MCHC RDW Plt Count Eos % (Auto) Eos # (Auto) Seg Neuts % (Manual) Lymphocytes % (Manual) Seg Neutrophils # Seg Neutrophils # Man Lymphocytes # (Manual) Monocytes # (Manual) PT INR D-Dimer ABG pH ABG pO2 ABG HCO3 ABG O2 Saturation ABG Base Excess ABG Hemoglobin Oxyhemoglobin Sodium 136 L Potassium Chloride Carbon Dioxide BUN 27 H Creatinine Glucose 112 H POC Glucose 115 H 111 H Lactic Acid Calcium 7.6 L Phosphorus Magnesium AST ALT Alkaline Phosphatase Lactate Dehydrogenase Troponin T C-Reactive Protein NT-Pro-B Natriuret Pep Total Protein Albumin LDL Cholesterol Direct Vitamin B12 Urine WBC (Auto) Fluid Glucose Fluid Total Protein Vancomycin Trough Crossmatch 12/11/21 12/12/21 12/12/21 23:42 04:30 04:30 WBC RBC 2.60 L Hgb 7.1 L Hct 21.5 L MCV MCH 27 L MCHC RDW 20.3 H Plt Count Eos % (Auto) Eos # (Auto) Seg Neuts % (Manual) Lymphocytes % (Manual) Seg Neutrophils # Seg Neutrophils # Man Lymphocytes # (Manual) Monocytes # (Manual) PT INR D-Dimer ABG pH ABG pO2 ABG HCO3 ABG O2 Saturation ABG Base Excess ABG Hemoglobin Oxyhemoglobin Sodium 135 L Potassium Chloride 97.9 L Carbon Dioxide BUN 26 H Creatinine 0.5 L Glucose 138 H POC Glucose 115 H Lactic Acid Calcium 8.2 L Phosphorus Magnesium AST ALT Alkaline Phosphatase Lactate Dehydrogenase Troponin T C-Reactive Protein NT-Pro-B Natriuret Pep Total Protein Albumin LDL Cholesterol Direct Vitamin B12 Urine WBC (Auto) Fluid Glucose Fluid Total Protein Vancomycin Trough Crossmatch 12/12/21 12/12/21 12/12/21 04:30 05:10 11:51 WBC RBC Hgb Hct MCV MCH MCHC RDW Plt Count Eos % (Auto) Eos # (Auto) Seg Neuts % (Manual) Lymphocytes % (Manual) Seg Neutrophils # Seg Neutrophils # Man Lymphocytes # (Manual) Monocytes # (Manual) PT INR D-Dimer ABG pH ABG pO2 ABG HCO3 ABG O2 Saturation ABG Base Excess ABG Hemoglobin Oxyhemoglobin Sodium Potassium Chloride Carbon Dioxide BUN Creatinine Glucose POC Glucose 119 H 119 H Lactic Acid Calcium Phosphorus Magnesium AST ALT Alkaline Phosphatase Lactate Dehydrogenase Troponin T C-Reactive Protein NT-Pro-B Natriuret Pep Total Protein Albumin LDL Cholesterol Direct Vitamin B12 Urine WBC (Auto) Fluid Glucose Fluid Total Protein Vancomycin Trough Crossmatch See Detail 12/13/21 12/13/21 12/13/21 00:52 04:00 04:00 WBC RBC 2.73 L Hgb 7.4 L Hct 22.8 L MCV MCH 27 L MCHC RDW 20.5 H Plt Count Eos % (Auto) Eos # (Auto) Seg Neuts % (Manual) Lymphocytes % (Manual) Seg Neutrophils # Seg Neutrophils # Man Lymphocytes # (Manual) Monocytes # (Manual) PT INR D-Dimer ABG pH ABG pO2 ABG HCO3 ABG O2 Saturation ABG Base Excess ABG Hemoglobin Oxyhemoglobin Sodium 134 L Potassium Chloride 96.7 L Carbon Dioxide BUN 23 H Creatinine 0.5 L Glucose 131 H POC Glucose 131 H Lactic Acid Calcium 8.1 L Phosphorus Magnesium AST ALT Alkaline Phosphatase Lactate Dehydrogenase Troponin T C-Reactive Protein NT-Pro-B Natriuret Pep Total Protein Albumin LDL Cholesterol Direct Vitamin B12 Urine WBC (Auto) Fluid Glucose Fluid Total Protein Vancomycin Trough Crossmatch 12/13/21 12/13/21 12/13/21 05:23 12:11 17:18 WBC RBC Hgb Hct MCV MCH MCHC RDW Plt Count Eos % (Auto) Eos # (Auto) Seg Neuts % (Manual) Lymphocytes % (Manual) Seg Neutrophils # Seg Neutrophils # Man Lymphocytes # (Manual) Monocytes # (Manual) PT INR D-Dimer ABG pH ABG pO2 ABG HCO3 ABG O2 Saturation ABG Base Excess ABG Hemoglobin Oxyhemoglobin Sodium Potassium Chloride Carbon Dioxide BUN Creatinine Glucose POC Glucose 121 H 143 H 148 H Lactic Acid Calcium Phosphorus Magnesium AST ALT Alkaline Phosphatase Lactate Dehydrogenase Troponin T C-Reactive Protein NT-Pro-B Natriuret Pep Total Protein Albumin LDL Cholesterol Direct Vitamin B12 Urine WBC (Auto) Fluid Glucose Fluid Total Protein Vancomycin Trough Crossmatch 12/14/21 12/14/21 12/14/21 00:54 04:20 04:20 WBC RBC 2.39 L Hgb 6.5 L Hct 20.3 L MCV MCH 27 L MCHC RDW 20.3 H Plt Count Eos % (Auto) Eos # (Auto) Seg Neuts % (Manual) Lymphocytes % (Manual) Seg Neutrophils # Seg Neutrophils # Man Lymphocytes # (Manual) Monocytes # (Manual) PT INR D-Dimer ABG pH ABG pO2 ABG HCO3 ABG O2 Saturation ABG Base Excess ABG Hemoglobin Oxyhemoglobin Sodium 130 L Potassium Chloride 93.5 L Carbon Dioxide BUN 25 H Creatinine Glucose 123 H POC Glucose 123 H Lactic Acid Calcium 8.0 L Phosphorus Magnesium AST ALT Alkaline Phosphatase Lactate Dehydrogenase Troponin T C-Reactive Protein NT-Pro-B Natriuret Pep Total Protein Albumin LDL Cholesterol Direct Vitamin B12 Urine WBC (Auto) Fluid Glucose Fluid Total Protein Vancomycin Trough Crossmatch 12/14/21 12/14/21 12/14/21 05:06 08:17 10:30 WBC RBC Hgb Hct MCV MCH MCHC RDW Plt Count Eos % (Auto) Eos # (Auto) Seg Neuts % (Manual) Lymphocytes % (Manual) Seg Neutrophils # Seg Neutrophils # Man Lymphocytes # (Manual) Monocytes # (Manual) PT INR D-Dimer ABG pH ABG pO2 ABG HCO3 ABG O2 Saturation ABG Base Excess ABG Hemoglobin Oxyhemoglobin Sodium Potassium Chloride Carbon Dioxide BUN Creatinine Glucose POC Glucose 131 H 119 H Lactic Acid Calcium Phosphorus Magnesium AST ALT Alkaline Phosphatase Lactate Dehydrogenase Troponin T C-Reactive Protein NT-Pro-B Natriuret Pep Total Protein Albumin LDL Cholesterol Direct Vitamin B12 Urine WBC (Auto) Fluid Glucose Fluid Total Protein Vancomycin Trough Crossmatch See Detail 12/14/21 12/14/21 12/14/21 12:15 16:37 23:27 WBC RBC Hgb Hct MCV MCH MCHC RDW Plt Count Eos % (Auto) Eos # (Auto) Seg Neuts % (Manual) Lymphocytes % (Manual) Seg Neutrophils # Seg Neutrophils # Man Lymphocytes # (Manual) Monocytes # (Manual) PT INR D-Dimer ABG pH ABG pO2 ABG HCO3 ABG O2 Saturation ABG Base Excess ABG Hemoglobin Oxyhemoglobin Sodium Potassium Chloride Carbon Dioxide BUN Creatinine Glucose POC Glucose 147 H 141 H 130 H Lactic Acid Calcium Phosphorus Magnesium AST ALT Alkaline Phosphatase Lactate Dehydrogenase Troponin T C-Reactive Protein NT-Pro-B Natriuret Pep Total Protein Albumin LDL Cholesterol Direct Vitamin B12 Urine WBC (Auto) Fluid Glucose Fluid Total Protein Vancomycin Trough Crossmatch 12/15/21 12/15/21 12/15/21 05:00 07:00 07:00 WBC 12.3 H RBC 3.27 L Hgb 8.8 L Hct 27.5 L D MCV MCH 27 L MCHC RDW 19.0 H Plt Count Eos % (Auto) Eos # (Auto) Seg Neuts % (Manual) Lymphocytes % (Manual) Seg Neutrophils # Seg Neutrophils # Man Lymphocytes # (Manual) Monocytes # (Manual) PT INR D-Dimer ABG pH ABG pO2 ABG HCO3 ABG O2 Saturation ABG Base Excess ABG Hemoglobin Oxyhemoglobin Sodium 134 L Potassium Chloride 95.7 L Carbon Dioxide BUN 28 H Creatinine Glucose 129 H POC Glucose 129 H Lactic Acid Calcium 8.2 L Phosphorus Magnesium AST ALT Alkaline Phosphatase Lactate Dehydrogenase Troponin T C-Reactive Protein NT-Pro-B Natriuret Pep Total Protein Albumin LDL Cholesterol Direct Vitamin B12 Urine WBC (Auto) Fluid Glucose Fluid Total Protein Vancomycin Trough Crossmatch 12/15/21 12/15/21 12/15/21 11:18 16:00 23:39 WBC RBC Hgb Hct MCV MCH MCHC RDW Plt Count Eos % (Auto) Eos # (Auto) Seg Neuts % (Manual) Lymphocytes % (Manual) Seg Neutrophils # Seg Neutrophils # Man Lymphocytes # (Manual) Monocytes # (Manual) PT INR D-Dimer ABG pH ABG pO2 ABG HCO3 ABG O2 Saturation ABG Base Excess ABG Hemoglobin Oxyhemoglobin Sodium Potassium Chloride Carbon Dioxide BUN Creatinine Glucose POC Glucose 139 H 137 H 146 H Lactic Acid Calcium Phosphorus Magnesium AST ALT Alkaline Phosphatase Lactate Dehydrogenase Troponin T C-Reactive Protein NT-Pro-B Natriuret Pep Total Protein Albumin LDL Cholesterol Direct Vitamin B12 Urine WBC (Auto) Fluid Glucose Fluid Total Protein Vancomycin Trough Crossmatch 12/16/21 12/16/21 12/16/21 05:24 10:21 10:21 WBC 15.3 H RBC 3.24 L Hgb 8.9 L Hct 27.7 L MCV MCH MCHC RDW 19.0 H Plt Count Eos % (Auto) Eos # (Auto) Seg Neuts % (Manual) Lymphocytes % (Manual) Seg Neutrophils # Seg Neutrophils # Man Lymphocytes # (Manual) Monocytes # (Manual) PT INR D-Dimer ABG pH ABG pO2 ABG HCO3 ABG O2 Saturation ABG Base Excess ABG Hemoglobin Oxyhemoglobin Sodium 131 L Potassium 3.5 L Chloride 92.7 L Carbon Dioxide BUN 36 H Creatinine Glucose 160 H POC Glucose 121 H Lactic Acid Calcium Phosphorus Magnesium 1.60 L AST ALT Alkaline Phosphatase Lactate Dehydrogenase Troponin T C-Reactive Protein NT-Pro-B Natriuret Pep Total Protein Albumin LDL Cholesterol Direct Vitamin B12 Urine WBC (Auto) Fluid Glucose Fluid Total Protein Vancomycin Trough Crossmatch 12/16/21 12/16/21 12/16/21 11:21 18:28 20:52 WBC RBC Hgb Hct MCV MCH MCHC RDW Plt Count Eos % (Auto) Eos # (Auto) Seg Neuts % (Manual) Lymphocytes % (Manual) Seg Neutrophils # Seg Neutrophils # Man Lymphocytes # (Manual) Monocytes # (Manual) PT INR D-Dimer ABG pH 7.479 H ABG pO2 79.3 L ABG HCO3 27.3 H ABG O2 Saturation ABG Base Excess 3.6 H ABG Hemoglobin 9.1 L Oxyhemoglobin 94.9 L Sodium Potassium Chloride Carbon Dioxide BUN Creatinine Glucose POC Glucose 153 H 132 H Lactic Acid Calcium Phosphorus Magnesium AST ALT Alkaline Phosphatase Lactate Dehydrogenase Troponin T C-Reactive Protein NT-Pro-B Natriuret Pep Total Protein Albumin LDL Cholesterol Direct Vitamin B12 Urine WBC (Auto) Fluid Glucose Fluid Total Protein Vancomycin Trough Crossmatch 12/16/21 12/17/21 12/17/21 23:30 04:25 04:25 WBC 12.3 H RBC 2.16 L Hgb 6.0 L Hct 18.1 L* D MCV MCH MCHC RDW 19.4 H Plt Count Eos % (Auto) Eos # (Auto) Seg Neuts % (Manual) Lymphocytes % (Manual) Seg Neutrophils # Seg Neutrophils # Man Lymphocytes # (Manual) Monocytes # (Manual) PT INR D-Dimer ABG pH ABG pO2 ABG HCO3 ABG O2 Saturation ABG Base Excess ABG Hemoglobin Oxyhemoglobin Sodium 132 L Potassium 3.2 L Chloride 112.0 H Carbon Dioxide BUN 32 H Creatinine Glucose 122 H POC Glucose 137 H Lactic Acid Calcium 6.8 L D Phosphorus Magnesium AST ALT Alkaline Phosphatase Lactate Dehydrogenase Troponin T C-Reactive Protein NT-Pro-B Natriuret Pep Total Protein Albumin LDL Cholesterol Direct Vitamin B12 Urine WBC (Auto) Fluid Glucose Fluid Total Protein Vancomycin Trough Crossmatch 12/17/21 12/17/21 12/17/21 05:30 11:49 14:45 WBC RBC Hgb 9.7 L D Hct MCV MCH MCHC RDW Plt Count Eos % (Auto) Eos # (Auto) Seg Neuts % (Manual) Lymphocytes % (Manual) Seg Neutrophils # Seg Neutrophils # Man Lymphocytes # (Manual) Monocytes # (Manual) PT INR D-Dimer ABG pH ABG pO2 ABG HCO3 ABG O2 Saturation ABG Base Excess ABG Hemoglobin Oxyhemoglobin Sodium Potassium Chloride Carbon Dioxide BUN Creatinine Glucose POC Glucose 137 H 143 H Lactic Acid Calcium Phosphorus Magnesium AST ALT Alkaline Phosphatase Lactate Dehydrogenase Troponin T C-Reactive Protein NT-Pro-B Natriuret Pep Total Protein Albumin LDL Cholesterol Direct Vitamin B12 Urine WBC (Auto) Fluid Glucose Fluid Total Protein Vancomycin Trough Crossmatch 12/17/21 12/18/21 12/18/21 17:01 05:04 05:04 WBC 13.8 H RBC 3.44 L Hgb 9.9 L Hct 28.8 L MCV MCH MCHC RDW 18.1 H Plt Count Eos % (Auto) Eos # (Auto) Seg Neuts % (Manual) Lymphocytes % (Manual) Seg Neutrophils # Seg Neutrophils # Man Lymphocytes # (Manual) Monocytes # (Manual) PT INR D-Dimer ABG pH ABG pO2 ABG HCO3 ABG O2 Saturation ABG Base Excess ABG Hemoglobin Oxyhemoglobin Sodium 132 L Potassium Chloride 97.4 L Carbon Dioxide BUN 38 H Creatinine Glucose 134 H POC Glucose 132 H Lactic Acid Calcium Phosphorus Magnesium AST ALT Alkaline Phosphatase Lactate Dehydrogenase Troponin T C-Reactive Protein NT-Pro-B Natriuret Pep Total Protein Albumin LDL Cholesterol Direct Vitamin B12 Urine WBC (Auto) Fluid Glucose Fluid Total Protein Vancomycin Trough Crossmatch 12/18/21 12/18/21 12/18/21 05:28 10:57 16:27 WBC RBC Hgb Hct MCV MCH MCHC RDW Plt Count Eos % (Auto) Eos # (Auto) Seg Neuts % (Manual) Lymphocytes % (Manual) Seg Neutrophils # Seg Neutrophils # Man Lymphocytes # (Manual) Monocytes # (Manual) PT INR D-Dimer ABG pH ABG pO2 ABG HCO3 ABG O2 Saturation ABG Base Excess ABG Hemoglobin Oxyhemoglobin Sodium Potassium Chloride Carbon Dioxide BUN Creatinine Glucose POC Glucose 118 H 132 H 130 H Lactic Acid Calcium Phosphorus Magnesium AST ALT Alkaline Phosphatase Lactate Dehydrogenase Troponin T C-Reactive Protein NT-Pro-B Natriuret Pep Total Protein Albumin LDL Cholesterol Direct Vitamin B12 Urine WBC (Auto) Fluid Glucose Fluid Total Protein Vancomycin Trough Crossmatch 12/19/21 12/19/21 12/19/21 00:02 04:41 04:41 WBC 16.0 H RBC 3.45 L Hgb 9.7 L Hct 29.1 L MCV MCH MCHC RDW 17.8 H Plt Count Eos % (Auto) Eos # (Auto) Seg Neuts % (Manual) Lymphocytes % (Manual) Seg Neutrophils # Seg Neutrophils # Man Lymphocytes # (Manual) Monocytes # (Manual) PT INR D-Dimer ABG pH ABG pO2 ABG HCO3 ABG O2 Saturation ABG Base Excess ABG Hemoglobin Oxyhemoglobin Sodium 133 L Potassium Chloride 97.9 L Carbon Dioxide BUN 36 H Creatinine 0.5 L Glucose 126 H POC Glucose 127 H Lactic Acid Calcium 8.3 L Phosphorus Magnesium AST ALT Alkaline Phosphatase Lactate Dehydrogenase Troponin T C-Reactive Protein NT-Pro-B Natriuret Pep Total Protein Albumin LDL Cholesterol Direct Vitamin B12 Urine WBC (Auto) Fluid Glucose Fluid Total Protein Vancomycin Trough Crossmatch 12/19/21 12/19/21 12/19/21 05:26 12:20 16:43 WBC RBC Hgb Hct MCV MCH MCHC RDW Plt Count Eos % (Auto) Eos # (Auto) Seg Neuts % (Manual) Lymphocytes % (Manual) Seg Neutrophils # Seg Neutrophils # Man Lymphocytes # (Manual) Monocytes # (Manual) PT INR D-Dimer ABG pH ABG pO2 ABG HCO3 ABG O2 Saturation ABG Base Excess ABG Hemoglobin Oxyhemoglobin Sodium Potassium Chloride Carbon Dioxide BUN Creatinine Glucose POC Glucose 119 H 145 H 126 H Lactic Acid Calcium Phosphorus Magnesium AST ALT Alkaline Phosphatase Lactate Dehydrogenase Troponin T C-Reactive Protein NT-Pro-B Natriuret Pep Total Protein Albumin LDL Cholesterol Direct Vitamin B12 Urine WBC (Auto) Fluid Glucose Fluid Total Protein Vancomycin Trough Crossmatch 12/19/21 12/20/21 12/20/21 23:30 04:54 04:54 WBC 12.3 H RBC 3.54 L Hgb 10.0 L Hct 29.5 L MCV MCH MCHC RDW 17.8 H Plt Count Eos % (Auto) Eos # (Auto) Seg Neuts % (Manual) 88.0 H Lymphocytes % (Manual) 6.0 L Seg Neutrophils # Seg Neutrophils # Man 10.8 H Lymphocytes # (Manual) 0.7 L Monocytes # (Manual) PT INR D-Dimer ABG pH ABG pO2 ABG HCO3 ABG O2 Saturation ABG Base Excess ABG Hemoglobin Oxyhemoglobin Sodium 131 L Potassium Chloride 96.2 L Carbon Dioxide BUN 36 H Creatinine 0.5 L Glucose 130 H POC Glucose 117 H Lactic Acid Calcium Phosphorus Magnesium AST ALT Alkaline Phosphatase Lactate Dehydrogenase Troponin T C-Reactive Protein NT-Pro-B Natriuret Pep Total Protein Albumin LDL Cholesterol Direct Vitamin B12 Urine WBC (Auto) Fluid Glucose Fluid Total Protein Vancomycin Trough Crossmatch 12/20/21 12/20/21 12/20/21 05:20 11:51 17:30 WBC RBC Hgb Hct MCV MCH MCHC RDW Plt Count Eos % (Auto) Eos # (Auto) Seg Neuts % (Manual) Lymphocytes % (Manual) Seg Neutrophils # Seg Neutrophils # Man Lymphocytes # (Manual) Monocytes # (Manual) PT INR D-Dimer ABG pH ABG pO2 ABG HCO3 ABG O2 Saturation ABG Base Excess ABG Hemoglobin Oxyhemoglobin Sodium Potassium Chloride Carbon Dioxide BUN Creatinine Glucose POC Glucose 126 H 119 H 127 H Lactic Acid Calcium Phosphorus Magnesium AST ALT Alkaline Phosphatase Lactate Dehydrogenase Troponin T C-Reactive Protein NT-Pro-B Natriuret Pep Total Protein Albumin LDL Cholesterol Direct Vitamin B12 Urine WBC (Auto) Fluid Glucose Fluid Total Protein Vancomycin Trough Crossmatch 12/21/21 12/21/21 12/21/21 00:45 04:21 04:21 WBC RBC 3.47 L Hgb 9.4 L Hct 29.2 L MCV MCH 27 L MCHC RDW 18.1 H Plt Count Eos % (Auto) Eos # (Auto) Seg Neuts % (Manual) Lymphocytes % (Manual) Seg Neutrophils # Seg Neutrophils # Man Lymphocytes # (Manual) Monocytes # (Manual) PT INR D-Dimer ABG pH ABG pO2 ABG HCO3 ABG O2 Saturation ABG Base Excess ABG Hemoglobin Oxyhemoglobin Sodium 134 L Potassium Chloride Carbon Dioxide BUN 35 H Creatinine 0.5 L Glucose 122 H POC Glucose 125 H Lactic Acid Calcium 8.2 L Phosphorus Magnesium AST ALT Alkaline Phosphatase Lactate Dehydrogenase Troponin T C-Reactive Protein NT-Pro-B Natriuret Pep Total Protein Albumin LDL Cholesterol Direct Vitamin B12 Urine WBC (Auto) Fluid Glucose Fluid Total Protein Vancomycin Trough Crossmatch 12/21/21 12/21/21 12/21/21 05:38 11:29 16:16 WBC RBC Hgb Hct MCV MCH MCHC RDW Plt Count Eos % (Auto) Eos # (Auto) Seg Neuts % (Manual) Lymphocytes % (Manual) Seg Neutrophils # Seg Neutrophils # Man Lymphocytes # (Manual) Monocytes # (Manual) PT INR D-Dimer ABG pH ABG pO2 ABG HCO3 ABG O2 Saturation ABG Base Excess ABG Hemoglobin Oxyhemoglobin Sodium Potassium Chloride Carbon Dioxide BUN Creatinine Glucose POC Glucose 127 H 121 H 113 H Lactic Acid Calcium Phosphorus Magnesium AST ALT Alkaline Phosphatase Lactate Dehydrogenase Troponin T C-Reactive Protein NT-Pro-B Natriuret Pep Total Protein Albumin LDL Cholesterol Direct Vitamin B12 Urine WBC (Auto) Fluid Glucose Fluid Total Protein Vancomycin Trough Crossmatch 12/22/21 12/22/21 12/23/21 04:58 04:58 06:40 WBC 11.5 H RBC 3.43 L Hgb 9.8 L Hct 28.7 L MCV MCH MCHC RDW 18.5 H 17.9 H Plt Count Eos % (Auto) Eos # (Auto) Seg Neuts % (Manual) Lymphocytes % (Manual) Seg Neutrophils # Seg Neutrophils # Man Lymphocytes # (Manual) Monocytes # (Manual) PT INR D-Dimer ABG pH ABG pO2 ABG HCO3 ABG O2 Saturation ABG Base Excess ABG Hemoglobin Oxyhemoglobin Sodium 130 L Potassium Chloride 97.8 L Carbon Dioxide BUN 31 H Creatinine 0.5 L Glucose 122 H POC Glucose Lactic Acid Calcium 7.9 L Phosphorus Magnesium AST ALT Alkaline Phosphatase Lactate Dehydrogenase Troponin T C-Reactive Protein NT-Pro-B Natriuret Pep Total Protein Albumin LDL Cholesterol Direct Vitamin B12 Urine WBC (Auto) Fluid Glucose Fluid Total Protein Vancomycin Trough Crossmatch 12/23/21 12/23/21 12/24/21 06:40 23:25 04:24 WBC 11.7 H RBC Hgb 9.8 L Hct MCV MCH 26 L MCHC RDW 18.1 H Plt Count Eos % (Auto) Eos # (Auto) Seg Neuts % (Manual) Lymphocytes % (Manual) Seg Neutrophils # Seg Neutrophils # Man Lymphocytes # (Manual) Monocytes # (Manual) PT INR D-Dimer ABG pH ABG pO2 ABG HCO3 ABG O2 Saturation ABG Base Excess ABG Hemoglobin Oxyhemoglobin Sodium 136 L Potassium Chloride Carbon Dioxide BUN 27 H Creatinine 0.4 L Glucose 107 H POC Glucose 110 H Lactic Acid Calcium 8.1 L Phosphorus Magnesium AST ALT Alkaline Phosphatase Lactate Dehydrogenase Troponin T C-Reactive Protein NT-Pro-B Natriuret Pep Total Protein Albumin LDL Cholesterol Direct Vitamin B12 Urine WBC (Auto) Fluid Glucose Fluid Total Protein Vancomycin Trough Crossmatch 12/24/21 12/24/21 12/24/21 04:24 11:08 15:45 WBC RBC Hgb Hct MCV MCH MCHC RDW Plt Count Eos % (Auto) Eos # (Auto) Seg Neuts % (Manual) Lymphocytes % (Manual) Seg Neutrophils # Seg Neutrophils # Man Lymphocytes # (Manual) Monocytes # (Manual) PT INR D-Dimer ABG pH ABG pO2 ABG HCO3 ABG O2 Saturation ABG Base Excess ABG Hemoglobin Oxyhemoglobin Sodium 132 L Potassium Chloride Carbon Dioxide BUN 27 H Creatinine 0.3 L Glucose 108 H POC Glucose 116 H 107 H Lactic Acid Calcium Phosphorus Magnesium AST ALT Alkaline Phosphatase Lactate Dehydrogenase Troponin T C-Reactive Protein NT-Pro-B Natriuret Pep Total Protein Albumin LDL Cholesterol Direct Vitamin B12 Urine WBC (Auto) Fluid Glucose Fluid Total Protein Vancomycin Trough Crossmatch 12/24/21 12/25/21 12/25/21 23:43 05:29 11:48 WBC RBC Hgb Hct MCV MCH MCHC RDW Plt Count Eos % (Auto) Eos # (Auto) Seg Neuts % (Manual) Lymphocytes % (Manual) Seg Neutrophils # Seg Neutrophils # Man Lymphocytes # (Manual) Monocytes # (Manual) PT INR D-Dimer ABG pH ABG pO2 ABG HCO3 ABG O2 Saturation ABG Base Excess ABG Hemoglobin Oxyhemoglobin Sodium Potassium Chloride Carbon Dioxide BUN Creatinine Glucose POC Glucose 123 H 107 H 119 H Lactic Acid Calcium Phosphorus Magnesium AST ALT Alkaline Phosphatase Lactate Dehydrogenase Troponin T C-Reactive Protein NT-Pro-B Natriuret Pep Total Protein Albumin LDL Cholesterol Direct Vitamin B12 Urine WBC (Auto) Fluid Glucose Fluid Total Protein Vancomycin Trough Crossmatch 12/26/21 12/26/21 12/26/21 00:06 05:56 07:51 WBC 11.4 H RBC 3.40 L Hgb 9.3 L Hct 28.3 L MCV MCH 27 L MCHC RDW 18.2 H Plt Count Eos % (Auto) Eos # (Auto) Seg Neuts % (Manual) Lymphocytes % (Manual) Seg Neutrophils # Seg Neutrophils # Man Lymphocytes # (Manual) Monocytes # (Manual) PT INR D-Dimer ABG pH ABG pO2 ABG HCO3 ABG O2 Saturation ABG Base Excess ABG Hemoglobin Oxyhemoglobin Sodium Potassium Chloride Carbon Dioxide BUN Creatinine Glucose POC Glucose 133 H 107 H Lactic Acid Calcium Phosphorus Magnesium AST ALT Alkaline Phosphatase Lactate Dehydrogenase Troponin T C-Reactive Protein NT-Pro-B Natriuret Pep Total Protein Albumin LDL Cholesterol Direct Vitamin B12 Urine WBC (Auto) Fluid Glucose Fluid Total Protein Vancomycin Trough Crossmatch 12/26/21 12/26/21 12/26/21 07:51 11:43 17:06 WBC RBC Hgb Hct MCV MCH MCHC RDW Plt Count Eos % (Auto) Eos # (Auto) Seg Neuts % (Manual) Lymphocytes % (Manual) Seg Neutrophils # Seg Neutrophils # Man Lymphocytes # (Manual) Monocytes # (Manual) PT INR D-Dimer ABG pH ABG pO2 ABG HCO3 ABG O2 Saturation ABG Base Excess ABG Hemoglobin Oxyhemoglobin Sodium 136 L Potassium Chloride Carbon Dioxide BUN 25 H Creatinine 0.3 L Glucose 131 H POC Glucose 119 H 128 H Lactic Acid Calcium Phosphorus Magnesium AST ALT Alkaline Phosphatase Lactate Dehydrogenase Troponin T C-Reactive Protein NT-Pro-B Natriuret Pep Total Protein Albumin LDL Cholesterol Direct Vitamin B12 Urine WBC (Auto) Fluid Glucose Fluid Total Protein Vancomycin Trough Crossmatch 12/28/21 12/28/21 12/29/21 09:05 09:05 04:40 WBC RBC 3.19 L Hgb 8.9 L Hct 26.4 L MCV MCH 27 L MCHC RDW 18.4 H 17.9 H Plt Count Eos % (Auto) Eos # (Auto) Seg Neuts % (Manual) Lymphocytes % (Manual) Seg Neutrophils # Seg Neutrophils # Man Lymphocytes # (Manual) Monocytes # (Manual) PT INR D-Dimer ABG pH ABG pO2 ABG HCO3 ABG O2 Saturation ABG Base Excess ABG Hemoglobin Oxyhemoglobin Sodium 135 L Potassium Chloride 97.8 L Carbon Dioxide BUN 18 H Creatinine 0.3 L Glucose POC Glucose Lactic Acid Calcium Phosphorus Magnesium AST ALT Alkaline Phosphatase Lactate Dehydrogenase Troponin T C-Reactive Protein NT-Pro-B Natriuret Pep Total Protein Albumin LDL Cholesterol Direct Vitamin B12 Urine WBC (Auto) Fluid Glucose Fluid Total Protein Vancomycin Trough Crossmatch 12/29/21 12/29/21 12/30/21 04:40 12:47 04:05 WBC RBC 3.29 L Hgb 8.7 L Hct 27.6 L MCV MCH 27 L MCHC RDW 17.6 H Plt Count Eos % (Auto) Eos # (Auto) Seg Neuts % (Manual) Lymphocytes % (Manual) Seg Neutrophils # Seg Neutrophils # Man Lymphocytes # (Manual) Monocytes # (Manual) PT INR D-Dimer ABG pH ABG pO2 ABG HCO3 ABG O2 Saturation ABG Base Excess ABG Hemoglobin Oxyhemoglobin Sodium 136 L Potassium Chloride Carbon Dioxide BUN Creatinine 0.3 L Glucose POC Glucose 67 L Lactic Acid Calcium 8.3 L Phosphorus Magnesium AST ALT Alkaline Phosphatase Lactate Dehydrogenase Troponin T C-Reactive Protein NT-Pro-B Natriuret Pep Total Protein Albumin LDL Cholesterol Direct Vitamin B12 Urine WBC (Auto) Fluid Glucose Fluid Total Protein Vancomycin Trough Crossmatch 12/30/21 12/31/21 12/31/21 04:05 00:07 04:00 WBC RBC 3.05 L Hgb 8.5 L Hct 25.5 L MCV MCH MCHC RDW 18.2 H Plt Count Eos % (Auto) Eos # (Auto) Seg Neuts % (Manual) Lymphocytes % (Manual) Seg Neutrophils # Seg Neutrophils # Man Lymphocytes # (Manual) Monocytes # (Manual) PT INR D-Dimer ABG pH ABG pO2 ABG HCO3 ABG O2 Saturation ABG Base Excess ABG Hemoglobin Oxyhemoglobin Sodium 136 L Potassium 3.5 L Chloride Carbon Dioxide BUN Creatinine 0.4 L Glucose POC Glucose 139 H Lactic Acid Calcium Phosphorus Magnesium 1.50 L AST ALT Alkaline Phosphatase Lactate Dehydrogenase Troponin T C-Reactive Protein NT-Pro-B Natriuret Pep Total Protein Albumin LDL Cholesterol Direct Vitamin B12 Urine WBC (Auto) Fluid Glucose Fluid Total Protein Vancomycin Trough Crossmatch 12/31/21 12/31/21 12/31/21 04:00 04:52 11:23 WBC RBC Hgb Hct MCV MCH MCHC RDW Plt Count Eos % (Auto) Eos # (Auto) Seg Neuts % (Manual) Lymphocytes % (Manual) Seg Neutrophils # Seg Neutrophils # Man Lymphocytes # (Manual) Monocytes # (Manual) PT INR D-Dimer ABG pH ABG pO2 ABG HCO3 ABG O2 Saturation ABG Base Excess ABG Hemoglobin Oxyhemoglobin Sodium Potassium Chloride Carbon Dioxide BUN 19 H Creatinine 0.4 L Glucose 116 H POC Glucose 121 H 116 H Lactic Acid Calcium Phosphorus Magnesium AST ALT Alkaline Phosphatase Lactate Dehydrogenase Troponin T C-Reactive Protein NT-Pro-B Natriuret Pep Total Protein Albumin LDL Cholesterol Direct Vitamin B12 Urine WBC (Auto) Fluid Glucose Fluid Total Protein Vancomycin Trough Crossmatch 12/31/21 01/01/22 01/01/22 17:42 04:31 04:31 WBC RBC 2.83 L Hgb 7.7 L Hct 23.2 L MCV MCH 27 L MCHC RDW 18.3 H Plt Count Eos % (Auto) Eos # (Auto) Seg Neuts % (Manual) Lymphocytes % (Manual) Seg Neutrophils # Seg Neutrophils # Man Lymphocytes # (Manual) Monocytes # (Manual) PT INR D-Dimer ABG pH ABG pO2 ABG HCO3 ABG O2 Saturation ABG Base Excess ABG Hemoglobin Oxyhemoglobin Sodium 135 L Potassium Chloride 97.7 L Carbon Dioxide BUN 21 H Creatinine 0.5 L Glucose 127 H POC Glucose 107 H Lactic Acid Calcium 8.0 L Phosphorus Magnesium AST ALT Alkaline Phosphatase Lactate Dehydrogenase Troponin T C-Reactive Protein NT-Pro-B Natriuret Pep Total Protein Albumin LDL Cholesterol Direct Vitamin B12 Urine WBC (Auto) Fluid Glucose Fluid Total Protein Vancomycin Trough Crossmatch 01/01/22 01/01/22 01/01/22 05:24 11:25 18:11 WBC RBC Hgb Hct MCV MCH MCHC RDW Plt Count Eos % (Auto) Eos # (Auto) Seg Neuts % (Manual) Lymphocytes % (Manual) Seg Neutrophils # Seg Neutrophils # Man Lymphocytes # (Manual) Monocytes # (Manual) PT INR D-Dimer ABG pH ABG pO2 ABG HCO3 ABG O2 Saturation ABG Base Excess ABG Hemoglobin Oxyhemoglobin Sodium Potassium Chloride Carbon Dioxide BUN Creatinine Glucose POC Glucose 124 H 140 H 144 H Lactic Acid Calcium Phosphorus Magnesium AST ALT Alkaline Phosphatase Lactate Dehydrogenase Troponin T C-Reactive Protein NT-Pro-B Natriuret Pep Total Protein Albumin LDL Cholesterol Direct Vitamin B12 Urine WBC (Auto) Fluid Glucose Fluid Total Protein Vancomycin Trough Crossmatch 01/01/22 01/02/22 01/02/22 23:26 04:01 04:01 WBC RBC 2.57 L Hgb 7.1 L Hct 21.5 L MCV MCH MCHC RDW 18.1 H Plt Count Eos % (Auto) Eos # (Auto) Seg Neuts % (Manual) Lymphocytes % (Manual) Seg Neutrophils # Seg Neutrophils # Man Lymphocytes # (Manual) Monocytes # (Manual) PT INR D-Dimer ABG pH ABG pO2 ABG HCO3 ABG O2 Saturation ABG Base Excess ABG Hemoglobin Oxyhemoglobin Sodium 131 L Potassium 3.5 L Chloride 94.8 L Carbon Dioxide BUN 27 H Creatinine Glucose 121 H POC Glucose 121 H Lactic Acid Calcium Phosphorus Magnesium AST ALT Alkaline Phosphatase Lactate Dehydrogenase Troponin T C-Reactive Protein NT-Pro-B Natriuret Pep Total Protein Albumin LDL Cholesterol Direct Vitamin B12 Urine WBC (Auto) Fluid Glucose Fluid Total Protein Vancomycin Trough Crossmatch 01/02/22 01/02/22 01/02/22 05:30 11:10 16:08 WBC RBC Hgb Hct MCV MCH MCHC RDW Plt Count Eos % (Auto) Eos # (Auto) Seg Neuts % (Manual) Lymphocytes % (Manual) Seg Neutrophils # Seg Neutrophils # Man Lymphocytes # (Manual) Monocytes # (Manual) PT INR D-Dimer ABG pH ABG pO2 ABG HCO3 ABG O2 Saturation ABG Base Excess ABG Hemoglobin Oxyhemoglobin Sodium Potassium Chloride Carbon Dioxide BUN Creatinine Glucose POC Glucose 124 H 117 H 130 H Lactic Acid Calcium Phosphorus Magnesium AST ALT Alkaline Phosphatase Lactate Dehydrogenase Troponin T C-Reactive Protein NT-Pro-B Natriuret Pep Total Protein Albumin LDL Cholesterol Direct Vitamin B12 Urine WBC (Auto) Fluid Glucose Fluid Total Protein Vancomycin Trough Crossmatch 0301/02/22 01/03/22 17:30 23:26 04:53 WBC RBC 2.82 L Hgb 7.7 L Hct 23.4 L MCV MCH 27 L MCHC RDW 18.0 H Plt Count Eos % (Auto) Eos # (Auto) Seg Neuts % (Manual) Lymphocytes % (Manual) Seg Neutrophils # Seg Neutrophils # Man Lymphocytes # (Manual) Monocytes # (Manual) PT INR D-Dimer ABG pH ABG pO2 ABG HCO3 ABG O2 Saturation ABG Base Excess ABG Hemoglobin Oxyhemoglobin Sodium Potassium Chloride Carbon Dioxide BUN Creatinine Glucose POC Glucose 114 H Lactic Acid Calcium Phosphorus Magnesium AST ALT Alkaline Phosphatase Lactate Dehydrogenase Troponin T C-Reactive Protein NT-Pro-B Natriuret Pep Total Protein Albumin LDL Cholesterol Direct Vitamin B12 Urine WBC (Auto) Fluid Glucose Fluid Total Protein Vancomycin Trough 22.8 H Crossmatch 01/03/22 01/03/22 01/03/22 04:53 06:23 17:35 WBC RBC Hgb Hct MCV MCH MCHC RDW Plt Count Eos % (Auto) Eos # (Auto) Seg Neuts % (Manual) Lymphocytes % (Manual) Seg Neutrophils # Seg Neutrophils # Man Lymphocytes # (Manual) Monocytes # (Manual) PT INR D-Dimer ABG pH ABG pO2 ABG HCO3 ABG O2 Saturation ABG Base Excess ABG Hemoglobin Oxyhemoglobin Sodium 133 L Potassium Chloride 96.2 L Carbon Dioxide BUN 30 H Creatinine Glucose 107 H POC Glucose 122 H 107 H Lactic Acid Calcium Phosphorus Magnesium AST ALT Alkaline Phosphatase Lactate Dehydrogenase Troponin T C-Reactive Protein NT-Pro-B Natriuret Pep Total Protein Albumin LDL Cholesterol Direct Vitamin B12 Urine WBC (Auto) Fluid Glucose Fluid Total Protein Vancomycin Trough Crossmatch 01/04/22 01/04/22 01/04/22 04:00 12:32 16:45 WBC RBC Hgb Hct MCV MCH MCHC RDW Plt Count Eos % (Auto) Eos # (Auto) Seg Neuts % (Manual) Lymphocytes % (Manual) Seg Neutrophils # Seg Neutrophils # Man Lymphocytes # (Manual) Monocytes # (Manual) PT INR D-Dimer ABG pH ABG pO2 ABG HCO3 ABG O2 Saturation ABG Base Excess ABG Hemoglobin Oxyhemoglobin Sodium 132 L Potassium Chloride 92.8 L Carbon Dioxide BUN 30 H Creatinine Glucose 115 H POC Glucose 111 H 111 H Lactic Acid Calcium Phosphorus Magnesium 1.60 L AST ALT Alkaline Phosphatase Lactate Dehydrogenase Troponin T C-Reactive Protein NT-Pro-B Natriuret Pep Total Protein Albumin LDL Cholesterol Direct Vitamin B12 Urine WBC (Auto) Fluid Glucose Fluid Total Protein Vancomycin Trough Crossmatch 01/05/22 01/05/22 01/05/22 04:30 04:30 17:04 WBC RBC 3.11 L Hgb 8.4 L Hct 25.5 L MCV MCH 27 L MCHC RDW 17.6 H Plt Count Eos % (Auto) Eos # (Auto) Seg Neuts % (Manual) Lymphocytes % (Manual) Seg Neutrophils # Seg Neutrophils # Man Lymphocytes # (Manual) Monocytes # (Manual) PT INR D-Dimer ABG pH ABG pO2 ABG HCO3 ABG O2 Saturation ABG Base Excess ABG Hemoglobin Oxyhemoglobin Sodium 135 L Potassium Chloride 93.6 L Carbon Dioxide BUN 29 H Creatinine Glucose POC Glucose 67 L Lactic Acid Calcium Phosphorus Magnesium AST ALT Alkaline Phosphatase Lactate Dehydrogenase Troponin T C-Reactive Protein NT-Pro-B Natriuret Pep Total Protein Albumin LDL Cholesterol Direct Vitamin B12 Urine WBC (Auto) Fluid Glucose Fluid Total Protein Vancomycin Trough Crossmatch 01/05/22 01/06/22 01/06/22 23:27 04:06 04:06 WBC RBC 2.89 L Hgb 7.7 L Hct 23.8 L MCV MCH 27 L MCHC RDW 18.0 H Plt Count Eos % (Auto) Eos # (Auto) Seg Neuts % (Manual) Lymphocytes % (Manual) Seg Neutrophils # Seg Neutrophils # Man Lymphocytes # (Manual) Monocytes # (Manual) PT 16.9 H INR 1.23 H D-Dimer ABG pH ABG pO2 ABG HCO3 ABG O2 Saturation ABG Base Excess ABG Hemoglobin Oxyhemoglobin Sodium Potassium Chloride Carbon Dioxide BUN Creatinine Glucose POC Glucose 110 H Lactic Acid Calcium Phosphorus Magnesium AST ALT Alkaline Phosphatase Lactate Dehydrogenase Troponin T C-Reactive Protein NT-Pro-B Natriuret Pep Total Protein Albumin LDL Cholesterol Direct Vitamin B12 Urine WBC (Auto) Fluid Glucose Fluid Total Protein Vancomycin Trough Crossmatch 01/06/22 01/06/22 01/06/22 04:06 13:40 23:41 WBC RBC Hgb Hct MCV MCH MCHC RDW Plt Count Eos % (Auto) Eos # (Auto) Seg Neuts % (Manual) Lymphocytes % (Manual) Seg Neutrophils # Seg Neutrophils # Man Lymphocytes # (Manual) Monocytes # (Manual) PT INR D-Dimer ABG pH ABG pO2 ABG HCO3 ABG O2 Saturation ABG Base Excess ABG Hemoglobin Oxyhemoglobin Sodium 132 L Potassium Chloride 92.3 L Carbon Dioxide BUN 26 H Creatinine Glucose 111 H POC Glucose 120 H Lactic Acid Calcium Phosphorus Magnesium AST ALT Alkaline Phosphatase Lactate Dehydrogenase Troponin T C-Reactive Protein NT-Pro-B Natriuret Pep Total Protein Albumin LDL Cholesterol Direct Vitamin B12 Urine WBC (Auto) Fluid Glucose 96 H Fluid Total Protein < 3.0 L Vancomycin Trough Crossmatch 01/07/22 01/07/22 01/07/22 05:20 11:30 17:00 WBC RBC Hgb Hct MCV MCH MCHC RDW Plt Count Eos % (Auto) Eos # (Auto) Seg Neuts % (Manual) Lymphocytes % (Manual) Seg Neutrophils # Seg Neutrophils # Man Lymphocytes # (Manual) Monocytes # (Manual) PT INR D-Dimer ABG pH ABG pO2 ABG HCO3 ABG O2 Saturation ABG Base Excess ABG Hemoglobin Oxyhemoglobin Sodium Potassium Chloride Carbon Dioxide BUN Creatinine Glucose POC Glucose 111 H 113 H 121 H Lactic Acid Calcium Phosphorus Magnesium AST ALT Alkaline Phosphatase Lactate Dehydrogenase Troponin T C-Reactive Protein NT-Pro-B Natriuret Pep Total Protein Albumin LDL Cholesterol Direct Vitamin B12 Urine WBC (Auto) Fluid Glucose Fluid Total Protein Vancomycin Trough Crossmatch 01/07/22 01/08/22 01/08/22 23:41 11:26 16:23 WBC RBC Hgb Hct MCV MCH MCHC RDW Plt Count Eos % (Auto) Eos # (Auto) Seg Neuts % (Manual) Lymphocytes % (Manual) Seg Neutrophils # Seg Neutrophils # Man Lymphocytes # (Manual) Monocytes # (Manual) PT INR D-Dimer ABG pH ABG pO2 ABG HCO3 ABG O2 Saturation ABG Base Excess ABG Hemoglobin Oxyhemoglobin Sodium Potassium Chloride Carbon Dioxide BUN Creatinine Glucose POC Glucose 110 H 129 H 118 H Lactic Acid Calcium Phosphorus Magnesium AST ALT Alkaline Phosphatase Lactate Dehydrogenase Troponin T C-Reactive Protein NT-Pro-B Natriuret Pep Total Protein Albumin LDL Cholesterol Direct Vitamin B12 Urine WBC (Auto) Fluid Glucose Fluid Total Protein Vancomycin Trough Crossmatch 01/09/22 01/10/22 01/10/22 18:13 00:27 04:00 WBC RBC Hgb Hct MCV MCH MCHC RDW Plt Count Eos % (Auto) Eos # (Auto) Seg Neuts % (Manual) Lymphocytes % (Manual) Seg Neutrophils # Seg Neutrophils # Man Lymphocytes # (Manual) Monocytes # (Manual) PT INR D-Dimer ABG pH ABG pO2 ABG HCO3 ABG O2 Saturation ABG Base Excess ABG Hemoglobin Oxyhemoglobin Sodium 133 L Potassium Chloride 92.6 L Carbon Dioxide 31 H BUN 29 H Creatinine 0.5 L Glucose 115 H POC Glucose 118 H 111 H Lactic Acid Calcium Phosphorus Magnesium AST ALT Alkaline Phosphatase Lactate Dehydrogenase Troponin T C-Reactive Protein NT-Pro-B Natriuret Pep Total Protein Albumin LDL Cholesterol Direct Vitamin B12 Urine WBC (Auto) Fluid Glucose Fluid Total Protein Vancomycin Trough Crossmatch 01/10/22 01/11/22 01/11/22 05:47 05:10 11:14 WBC RBC Hgb Hct MCV MCH MCHC RDW Plt Count Eos % (Auto) Eos # (Auto) Seg Neuts % (Manual) Lymphocytes % (Manual) Seg Neutrophils # Seg Neutrophils # Man Lymphocytes # (Manual) Monocytes # (Manual) PT INR D-Dimer ABG pH ABG pO2 ABG HCO3 ABG O2 Saturation ABG Base Excess ABG Hemoglobin Oxyhemoglobin Sodium Potassium Chloride Carbon Dioxide BUN Creatinine Glucose POC Glucose 106 H 118 H 136 H Lactic Acid Calcium Phosphorus Magnesium AST ALT Alkaline Phosphatase Lactate Dehydrogenase Troponin T C-Reactive Protein NT-Pro-B Natriuret Pep Total Protein Albumin LDL Cholesterol Direct Vitamin B12 Urine WBC (Auto) Fluid Glucose Fluid Total Protein Vancomycin Trough Crossmatch 01/11/22 01/11/22 01/12/22 17:14 23:52 05:39 WBC RBC Hgb Hct MCV MCH MCHC RDW Plt Count Eos % (Auto) Eos # (Auto) Seg Neuts % (Manual) Lymphocytes % (Manual) Seg Neutrophils # Seg Neutrophils # Man Lymphocytes # (Manual) Monocytes # (Manual) PT INR D-Dimer ABG pH ABG pO2 ABG HCO3 ABG O2 Saturation ABG Base Excess ABG Hemoglobin Oxyhemoglobin Sodium Potassium Chloride Carbon Dioxide BUN Creatinine Glucose POC Glucose 117 H 110 H 110 H Lactic Acid Calcium Phosphorus Magnesium AST ALT Alkaline Phosphatase Lactate Dehydrogenase Troponin T C-Reactive Protein NT-Pro-B Natriuret Pep Total Protein Albumin LDL Cholesterol Direct Vitamin B12 Urine WBC (Auto) Fluid Glucose Fluid Total Protein Vancomycin Trough Crossmatch 01/13/22 01/13/22 01/14/22 11:15 17:21 05:33 WBC RBC Hgb Hct MCV MCH MCHC RDW Plt Count Eos % (Auto) Eos # (Auto) Seg Neuts % (Manual) Lymphocytes % (Manual) Seg Neutrophils # Seg Neutrophils # Man Lymphocytes # (Manual) Monocytes # (Manual) PT INR D-Dimer ABG pH ABG pO2 ABG HCO3 ABG O2 Saturation ABG Base Excess ABG Hemoglobin Oxyhemoglobin Sodium Potassium Chloride Carbon Dioxide BUN Creatinine Glucose POC Glucose 113 H 121 H 136 H Lactic Acid Calcium Phosphorus Magnesium AST ALT Alkaline Phosphatase Lactate Dehydrogenase Troponin T C-Reactive Protein NT-Pro-B Natriuret Pep Total Protein Albumin LDL Cholesterol Direct Vitamin B12 Urine WBC (Auto) Fluid Glucose Fluid Total Protein Vancomycin Trough Crossmatch 01/14/22 01/15/22 01/15/22 11:28 00:13 05:24 WBC RBC Hgb Hct MCV MCH MCHC RDW Plt Count Eos % (Auto) Eos # (Auto) Seg Neuts % (Manual) Lymphocytes % (Manual) Seg Neutrophils # Seg Neutrophils # Man Lymphocytes # (Manual) Monocytes # (Manual) PT INR D-Dimer ABG pH ABG pO2 ABG HCO3 ABG O2 Saturation ABG Base Excess ABG Hemoglobin Oxyhemoglobin Sodium Potassium Chloride Carbon Dioxide BUN Creatinine Glucose POC Glucose 117 H 109 H 117 H Lactic Acid Calcium Phosphorus Magnesium AST ALT Alkaline Phosphatase Lactate Dehydrogenase Troponin T C-Reactive Protein NT-Pro-B Natriuret Pep Total Protein Albumin LDL Cholesterol Direct Vitamin B12 Urine WBC (Auto) Fluid Glucose Fluid Total Protein Vancomycin Trough Crossmatch 01/15/22 01/15/22 01/15/22 11:38 14:36 17:05 WBC RBC 3.11 L Hgb 8.4 L Hct 25.7 L MCV MCH 27 L MCHC RDW 17.2 H Plt Count Eos % (Auto) Eos # (Auto) Seg Neuts % (Manual) 82.0 H Lymphocytes % (Manual) 11.0 L Seg Neutrophils # Seg Neutrophils # Man 8.8 H Lymphocytes # (Manual) Monocytes # (Manual) PT INR D-Dimer ABG pH ABG pO2 ABG HCO3 ABG O2 Saturation ABG Base Excess ABG Hemoglobin Oxyhemoglobin Sodium Potassium Chloride Carbon Dioxide BUN Creatinine Glucose POC Glucose 107 H 108 H Lactic Acid Calcium Phosphorus Magnesium AST ALT Alkaline Phosphatase Lactate Dehydrogenase Troponin T C-Reactive Protein NT-Pro-B Natriuret Pep Total Protein Albumin LDL Cholesterol Direct Vitamin B12 Urine WBC (Auto) Fluid Glucose Fluid Total Protein Vancomycin Trough Crossmatch 01/15/22 01/15/22 01/15/22 21:07 Unknown Unknown WBC RBC 2.97 L Hgb 8.0 L Hct 24.3 L MCV MCH 27 L MCHC RDW 17.2 H Plt Count Eos % (Auto) Eos # (Auto) Seg Neuts % (Manual) Lymphocytes % (Manual) Seg Neutrophils # Seg Neutrophils # Man Lymphocytes # (Manual) Monocytes # (Manual) PT INR D-Dimer ABG pH ABG pO2 ABG HCO3 ABG O2 Saturation ABG Base Excess ABG Hemoglobin Oxyhemoglobin Sodium 131 L Potassium Chloride 93.1 L Carbon Dioxide BUN 27 H Creatinine Glucose 110 H POC Glucose Lactic Acid Calcium 8.3 L Phosphorus Magnesium AST ALT Alkaline Phosphatase Lactate Dehydrogenase Troponin T 0.088 H C-Reactive Protein NT-Pro-B Natriuret Pep Total Protein Albumin LDL Cholesterol Direct 44 L Vitamin B12 Urine WBC (Auto) Fluid Glucose Fluid Total Protein Vancomycin Trough Crossmatch 01/15/22 01/16/22 01/16/22 Unknown 05:21 12:59 WBC RBC Hgb Hct MCV MCH MCHC RDW Plt Count Eos % (Auto) Eos # (Auto) Seg Neuts % (Manual) Lymphocytes % (Manual) Seg Neutrophils # Seg Neutrophils # Man Lymphocytes # (Manual) Monocytes # (Manual) PT INR D-Dimer ABG pH ABG pO2 ABG HCO3 ABG O2 Saturation ABG Base Excess ABG Hemoglobin Oxyhemoglobin Sodium 134 L 134 L Potassium 3.4 L Chloride 93.9 L 95.4 L Carbon Dioxide BUN 26 H 24 H Creatinine Glucose 168 H POC Glucose 159 H Lactic Acid Calcium 8.1 L Phosphorus Magnesium AST ALT Alkaline Phosphatase Lactate Dehydrogenase Troponin T 0.078 H C-Reactive Protein NT-Pro-B Natriuret Pep Total Protein Albumin LDL Cholesterol Direct Vitamin B12 Urine WBC (Auto) Fluid Glucose Fluid Total Protein Vancomycin Trough Crossmatch 01/16/22 01/17/22 01/17/22 23:22 05:20 14:24 WBC RBC Hgb Hct MCV MCH MCHC RDW Plt Count Eos % (Auto) Eos # (Auto) Seg Neuts % (Manual) Lymphocytes % (Manual) Seg Neutrophils # Seg Neutrophils # Man Lymphocytes # (Manual) Monocytes # (Manual) PT INR D-Dimer ABG pH ABG pO2 55.0 L ABG HCO3 29.5 H ABG O2 Saturation 87.8 L ABG Base Excess 4.5 H ABG Hemoglobin 9.3 L Oxyhemoglobin 86.1 L Sodium Potassium Chloride Carbon Dioxide BUN Creatinine Glucose POC Glucose 113 H 111 H Lactic Acid Calcium Phosphorus Magnesium AST ALT Alkaline Phosphatase Lactate Dehydrogenase Troponin T C-Reactive Protein NT-Pro-B Natriuret Pep Total Protein Albumin LDL Cholesterol Direct Vitamin B12 Urine WBC (Auto) Fluid Glucose Fluid Total Protein Vancomycin Trough Crossmatch 01/17/22 01/18/22 01/18/22 17:14 05:39 11:53 WBC RBC Hgb Hct MCV MCH MCHC RDW Plt Count Eos % (Auto) Eos # (Auto) Seg Neuts % (Manual) Lymphocytes % (Manual) Seg Neutrophils # Seg Neutrophils # Man Lymphocytes # (Manual) Monocytes # (Manual) PT INR D-Dimer ABG pH ABG pO2 ABG HCO3 ABG O2 Saturation ABG Base Excess ABG Hemoglobin Oxyhemoglobin Sodium Potassium Chloride Carbon Dioxide BUN Creatinine Glucose POC Glucose 126 H 108 H 113 H Lactic Acid Calcium Phosphorus Magnesium AST ALT Alkaline Phosphatase Lactate Dehydrogenase Troponin T C-Reactive Protein NT-Pro-B Natriuret Pep Total Protein Albumin LDL Cholesterol Direct Vitamin B12 Urine WBC (Auto) Fluid Glucose Fluid Total Protein Vancomycin Trough Crossmatch 01/18/22 01/19/22 01/19/22 12:50 00:04 04:50 WBC RBC 3.14 L Hgb 8.4 L Hct 26.0 L MCV MCH 27 L MCHC RDW 18.2 H Plt Count Eos % (Auto) Eos # (Auto) Seg Neuts % (Manual) Lymphocytes % (Manual) Seg Neutrophils # Seg Neutrophils # Man Lymphocytes # (Manual) Monocytes # (Manual) PT INR D-Dimer ABG pH ABG pO2 112.3 H ABG HCO3 30.9 H ABG O2 Saturation ABG Base Excess 5.8 H ABG Hemoglobin 8.8 L Oxyhemoglobin Sodium Potassium Chloride Carbon Dioxide BUN Creatinine Glucose POC Glucose 115 H Lactic Acid Calcium Phosphorus Magnesium AST ALT Alkaline Phosphatase Lactate Dehydrogenase Troponin T C-Reactive Protein NT-Pro-B Natriuret Pep Total Protein Albumin LDL Cholesterol Direct Vitamin B12 Urine WBC (Auto) Fluid Glucose Fluid Total Protein Vancomycin Trough Crossmatch 01/19/22 01/19/22 01/19/22 04:50 11:51 20:45 WBC RBC Hgb Hct MCV MCH MCHC RDW Plt Count Eos % (Auto) Eos # (Auto) Seg Neuts % (Manual) Lymphocytes % (Manual) Seg Neutrophils # Seg Neutrophils # Man Lymphocytes # (Manual) Monocytes # (Manual) PT INR D-Dimer ABG pH ABG pO2 95.2 H ABG HCO3 29.8 H ABG O2 Saturation ABG Base Excess 4.3 H ABG Hemoglobin 8.0 L Oxyhemoglobin Sodium 134 L Potassium Chloride 95.4 L Carbon Dioxide BUN 28 H Creatinine Glucose POC Glucose 111 H Lactic Acid Calcium Phosphorus Magnesium AST ALT Alkaline Phosphatase Lactate Dehydrogenase Troponin T C-Reactive Protein NT-Pro-B Natriuret Pep Total Protein Albumin LDL Cholesterol Direct Vitamin B12 Urine WBC (Auto) Fluid Glucose Fluid Total Protein Vancomycin Trough Crossmatch 01/20/22 01/21/22 01/22/22 11:43 23:32 11:12 WBC RBC Hgb Hct MCV MCH MCHC RDW Plt Count Eos % (Auto) Eos # (Auto) Seg Neuts % (Manual) Lymphocytes % (Manual) Seg Neutrophils # Seg Neutrophils # Man Lymphocytes # (Manual) Monocytes # (Manual) PT INR D-Dimer ABG pH ABG pO2 ABG HCO3 ABG O2 Saturation ABG Base Excess ABG Hemoglobin Oxyhemoglobin Sodium Potassium Chloride Carbon Dioxide BUN Creatinine Glucose POC Glucose 118 H 113 H 110 H Lactic Acid Calcium Phosphorus Magnesium AST ALT Alkaline Phosphatase Lactate Dehydrogenase Troponin T C-Reactive Protein NT-Pro-B Natriuret Pep Total Protein Albumin LDL Cholesterol Direct Vitamin B12 Urine WBC (Auto) Fluid Glucose Fluid Total Protein Vancomycin Trough Crossmatch 01/22/22 01/23/22 01/23/22 17:54 09:36 11:49 WBC RBC Hgb Hct MCV MCH MCHC RDW Plt Count Eos % (Auto) Eos # (Auto) Seg Neuts % (Manual) Lymphocytes % (Manual) Seg Neutrophils # Seg Neutrophils # Man Lymphocytes # (Manual) Monocytes # (Manual) PT INR D-Dimer ABG pH ABG pO2 ABG HCO3 ABG O2 Saturation ABG Base Excess ABG Hemoglobin Oxyhemoglobin Sodium Potassium Chloride Carbon Dioxide BUN Creatinine Glucose POC Glucose 115 H 194 H Lactic Acid Calcium Phosphorus Magnesium AST ALT Alkaline Phosphatase Lactate Dehydrogenase Troponin T C-Reactive Protein NT-Pro-B Natriuret Pep Total Protein Albumin LDL Cholesterol Direct Vitamin B12 Urine WBC (Auto) 16.0 H Fluid Glucose Fluid Total Protein Vancomycin Trough Crossmatch 01/23/22 01/24/22 01/24/22 11:50 05:37 11:56 WBC RBC Hgb Hct MCV MCH MCHC RDW Plt Count Eos % (Auto) Eos # (Auto) Seg Neuts % (Manual) Lymphocytes % (Manual) Seg Neutrophils # Seg Neutrophils # Man Lymphocytes # (Manual) Monocytes # (Manual) PT INR D-Dimer ABG pH 7.310 L ABG pO2 43.9 L ABG HCO3 28.0 H ABG O2 Saturation 70.8 L ABG Base Excess ABG Hemoglobin 9.3 L Oxyhemoglobin 69.2 L Sodium Potassium Chloride Carbon Dioxide BUN Creatinine Glucose POC Glucose 118 H 119 H Lactic Acid Calcium Phosphorus Magnesium AST ALT Alkaline Phosphatase Lactate Dehydrogenase Troponin T C-Reactive Protein NT-Pro-B Natriuret Pep Total Protein Albumin LDL Cholesterol Direct Vitamin B12 Urine WBC (Auto) Fluid Glucose Fluid Total Protein Vancomycin Trough Crossmatch 01/25/22 01/25/22 01/26/22 12:20 13:17 05:59 WBC RBC Hgb Hct MCV MCH MCHC RDW Plt Count Eos % (Auto) Eos # (Auto) Seg Neuts % (Manual) Lymphocytes % (Manual) Seg Neutrophils # Seg Neutrophils # Man Lymphocytes # (Manual) Monocytes # (Manual) PT INR D-Dimer ABG pH 7.488 H ABG pO2 58.9 L ABG HCO3 28.3 H ABG O2 Saturation 94.9 L ABG Base Excess 4.7 H ABG Hemoglobin 8.7 L Oxyhemoglobin 92.7 L Sodium Potassium Chloride Carbon Dioxide BUN Creatinine Glucose POC Glucose 126 H 130 H Lactic Acid Calcium Phosphorus Magnesium AST ALT Alkaline Phosphatase Lactate Dehydrogenase Troponin T C-Reactive Protein NT-Pro-B Natriuret Pep Total Protein Albumin LDL Cholesterol Direct Vitamin B12 Urine WBC (Auto) Fluid Glucose Fluid Total Protein Vancomycin Trough Crossmatch 01/26/22 01/26/22 01/26/22 10:16 10:16 11:49 WBC 12.7 H RBC Hgb 9.9 L Hct MCV MCH 27 L MCHC RDW 18.3 H Plt Count Eos % (Auto) 4.5 H Eos # (Auto) 0.6 H Seg Neuts % (Manual) Lymphocytes % (Manual) Seg Neutrophils # 8.2 H Seg Neutrophils # Man Lymphocytes # (Manual) Monocytes # (Manual) PT INR D-Dimer ABG pH ABG pO2 ABG HCO3 ABG O2 Saturation ABG Base Excess ABG Hemoglobin Oxyhemoglobin Sodium Potassium Chloride 96.6 L Carbon Dioxide BUN 29 H Creatinine Glucose 140 H POC Glucose 161 H Lactic Acid Calcium Phosphorus Magnesium AST ALT Alkaline Phosphatase Lactate Dehydrogenase Troponin T C-Reactive Protein NT-Pro-B Natriuret Pep Total Protein Albumin LDL Cholesterol Direct Vitamin B12 Urine WBC (Auto) Fluid Glucose Fluid Total Protein Vancomycin Trough Crossmatch 01/27/22 01/27/22 01/27/22 00:22 12:48 23:08 WBC RBC Hgb Hct MCV MCH MCHC RDW Plt Count Eos % (Auto) Eos # (Auto) Seg Neuts % (Manual) Lymphocytes % (Manual) Seg Neutrophils # Seg Neutrophils # Man Lymphocytes # (Manual) Monocytes # (Manual) PT INR D-Dimer ABG pH ABG pO2 ABG HCO3 ABG O2 Saturation ABG Base Excess ABG Hemoglobin Oxyhemoglobin Sodium Potassium Chloride Carbon Dioxide BUN Creatinine Glucose POC Glucose 107 H 131 H 109 H Lactic Acid Calcium Phosphorus Magnesium AST ALT Alkaline Phosphatase Lactate Dehydrogenase Troponin T C-Reactive Protein NT-Pro-B Natriuret Pep Total Protein Albumin LDL Cholesterol Direct Vitamin B12 Urine WBC (Auto) Fluid Glucose Fluid Total Protein Vancomycin Trough Crossmatch 01/29/22 01/29/22 01/29/22 04:40 05:52 11:26 WBC RBC Hgb Hct MCV MCH MCHC RDW Plt Count Eos % (Auto) Eos # (Auto) Seg Neuts % (Manual) Lymphocytes % (Manual) Seg Neutrophils # Seg Neutrophils # Man Lymphocytes # (Manual) Monocytes # (Manual) PT INR D-Dimer ABG pH ABG pO2 ABG HCO3 ABG O2 Saturation ABG Base Excess ABG Hemoglobin Oxyhemoglobin Sodium Potassium Chloride 95.9 L Carbon Dioxide BUN 36 H Creatinine Glucose 127 H POC Glucose 108 H 119 H Lactic Acid Calcium Phosphorus Magnesium AST ALT Alkaline Phosphatase Lactate Dehydrogenase Troponin T C-Reactive Protein NT-Pro-B Natriuret Pep Total Protein Albumin LDL Cholesterol Direct Vitamin B12 Urine WBC (Auto) Fluid Glucose Fluid Total Protein Vancomycin Trough Crossmatch 01/30/22 01/30/22 01/30/22 05:29 12:44 23:34 WBC RBC Hgb Hct MCV MCH MCHC RDW Plt Count Eos % (Auto) Eos # (Auto) Seg Neuts % (Manual) Lymphocytes % (Manual) Seg Neutrophils # Seg Neutrophils # Man Lymphocytes # (Manual) Monocytes # (Manual) PT INR D-Dimer ABG pH ABG pO2 ABG HCO3 ABG O2 Saturation ABG Base Excess ABG Hemoglobin Oxyhemoglobin Sodium Potassium Chloride Carbon Dioxide BUN Creatinine Glucose POC Glucose 109 H 108 H 109 H Lactic Acid Calcium Phosphorus Magnesium AST ALT Alkaline Phosphatase Lactate Dehydrogenase Troponin T C-Reactive Protein NT-Pro-B Natriuret Pep Total Protein Albumin LDL Cholesterol Direct Vitamin B12 Urine WBC (Auto) Fluid Glucose Fluid Total Protein Vancomycin Trough Crossmatch 01/31/22 01/31/22 02/01/22 04:08 05:12 04:00 WBC RBC Hgb Hct MCV MCH MCHC RDW Plt Count Eos % (Auto) Eos # (Auto) Seg Neuts % (Manual) Lymphocytes % (Manual) Seg Neutrophils # Seg Neutrophils # Man Lymphocytes # (Manual) Monocytes # (Manual) PT INR D-Dimer ABG pH ABG pO2 ABG HCO3 ABG O2 Saturation ABG Base Excess ABG Hemoglobin Oxyhemoglobin Sodium 136 L 136 L Potassium Chloride 97.6 L 94.1 L Carbon Dioxide BUN 41 H 41 H Creatinine Glucose 120 H 118 H POC Glucose 111 H Lactic Acid Calcium Phosphorus Magnesium AST ALT Alkaline Phosphatase Lactate Dehydrogenase Troponin T C-Reactive Protein NT-Pro-B Natriuret Pep Total Protein Albumin LDL Cholesterol Direct Vitamin B12 Urine WBC (Auto) Fluid Glucose Fluid Total Protein Vancomycin Trough Crossmatch 02/02/22 08:36 WBC RBC Hgb Hct MCV MCH MCHC RDW Plt Count Eos % (Auto) Eos # (Auto) Seg Neuts % (Manual) Lymphocytes % (Manual) Seg Neutrophils # Seg Neutrophils # Man Lymphocytes # (Manual) Monocytes # (Manual) PT INR D-Dimer ABG pH ABG pO2 ABG HCO3 ABG O2 Saturation ABG Base Excess ABG Hemoglobin Oxyhemoglobin Sodium 135 L Potassium Chloride 94.6 L Carbon Dioxide BUN 38 H Creatinine Glucose POC Glucose Lactic Acid Calcium Phosphorus Magnesium AST ALT Alkaline Phosphatase Lactate Dehydrogenase Troponin T C-Reactive Protein NT-Pro-B Natriuret Pep Total Protein Albumin LDL Cholesterol Direct Vitamin B12 Urine WBC (Auto) Fluid Glucose Fluid Total Protein Vancomycin Trough Crossmatch Chest x-ray: pending Allied health notes reviewed: nursing
[2022-02-02 12:14] LABS: INR 1.02 (0.87-1.13)
[2022-02-02 12:18] LABS: Partial Thromboplastin Time 41.8 Sec. (24.2-36.6)
--- NOTE | 2022-02-02 12:32 | XRay Report ---
CHEST 1 VIEW INDICATION / CLINICAL INFORMATION: pleural effusion. COMPARISON: 02/01/2022 FINDINGS: SUPPORT DEVICES: Right PICC line, pigtail right chest tube, tracheostomy tube and left subclavian pac emaker, unchanged HEART / MEDIASTINUM: Stable cardiomegaly. LUNGS / PLEURA: Moderate increased interstitial markings and bilateral pleural effusions have worsene d. Worsening suboptimal inspiration. No pneumothorax. ADDITIONAL FINDINGS: No significant additional findings. IMPRESSION: 1. Worsening bilateral pleural-parenchymal disease Signer Name: Mathew Rogers MD Signed: 02/02/2022 12:27 PM Workstation Name: [id number]
[2022-02-02] MEDS: MELATONIN 5 MG TAB PO SCH (21:03)
[2022-02-02] MEDS: PRAVASTATIN 20 MG TAB FEEDTUBE SCH (21:03)
[2022-02-02] MEDS: traZODone 50 MG TAB PO SCH (21:03)
[2022-02-03] MEDS: LEVOTHYROXINE 125 MCG TAB FEEDTUBE SCH (05:01)
[2022-02-03] MEDS: SUCRALFATE 1 GM/10 ML ORAL LIQD FEEDTUBE SCH ×4 (05:01→23:45)
[2022-02-03 05:02] LABS: Hematocrit 26.5 % (30.3-42.9); Hemoglobin 8.9 gm/dl (10.1-14.3); Mean Corpuscular HGB Conc 33 % (30-34); Mean Corpuscular Volume 83 fl (79-97); Platelet Count 229 K/mm3 (140-440); Red Cell Distribution Width 18.6 % (13.2-15.2)
[2022-02-03 05:16] LABS: BUN/Creatinine Ratio 53; Blood Urea Nitrogen 42 mg/dL (7-17); Calcium 9.1 mg/dL (8.4-10.2); Hemolysis Index 16
[2022-02-03] MEDS: MIDODRINE 5 MG TAB FEEDTUBE SCH ×3 (08:24→17:04)
[2022-02-03] MEDS: HYDROcodone/ACETAMINOPHEN 10-325MG TAB FEEDTUBE SCH ×3 (08:24→20:32)
[2022-02-03] MEDS: POLYETHYLENE GLYCOL 3350 17 GM POWDER FEEDTUBE SCH (09:20)
[2022-02-03] MEDS: DOCUSATE SODIUM 100 MG/10 ML ORAL LIQD FEEDTUBE SCH ×2 (09:20→21:46)
[2022-02-03] MEDS: SENNOSIDES ORAL LIQD 8.8 MG/5 ML ORAL LIQD FEEDTUBE SCH ×2 (09:21→21:47)
[2022-02-03] MEDS: SULFAMETHOXAZOLE/TRIMETHOPRIM 200-40 MG/5 ML ORAL LIQD 30 ML PO SCH (09:27)
[2022-02-03] MEDS: busPIRone 5 MG TAB FEEDTUBE SCH ×2 (09:30→21:45)
[2022-02-03] MEDS: BUMETANIDE 1 MG TAB FEEDTUBE SCH (09:30)
[2022-02-03] MEDS: METOPROLOL TARTRATE 25 MG TAB FEEDTUBE SCH ×2 (09:30→21:47)
[2022-02-03] MEDS: GABAPENTIN 500 MG/10 ML ORAL LIQD FEEDTUBE SCH (09:30)
[2022-02-03] MEDS: LANSOPRAZOLE 30 MG SOLUTAB FEEDTUBE SCH ×2 (09:30→21:46)
[2022-02-03] MEDS: SPIRONOLACTONE 25 MG TAB FEEDTUBE SCH (09:31)
[2022-02-03] MEDS: QUEtiapine 25 MG TAB FEEDTUBE SCH ×2 (09:31→21:46)
[2022-02-03] MEDS: ALPRAZolam 0.5 MG TAB FEEDTUBE PRN ×2 (09:31→21:48)
--- NOTE | 2022-02-03 12:27 | Progress Note ---
Assessment and Plan Gram positive Bacteremia (MRSA) Acute respiratory failure with hypoxia, now on MVS Acute microcytic anemia Bilateral pneumonia DVT Left pleural effusion Cardiomyopathy EF 30-35% Moderate pulmonary HTN - chest tube pulled at bedside - unable to pull out tracheostomy tube for change-out; she will need ENT evaluation - PT/OT re-ordered - will hold MBS for now (she does not want to do it today) - no new issues otherwise, continue care as below; - continue thyroid replacement therapy with Levoxyl - continue Bumex 1 mg p.o. daily - follow I's & O's and monitor electrolytes - continue Seroquel - Vancomycin carmita-escalated to Bactrim - continue to wean supplemental oxygen for target O2 sat's > 90% acutely - aspiration precautions - continue bronchodilators with routine trach care and pulmonary hygiene per RT - wean per pulmonary driven protocols otherwise - avoid nephrotoxins, renally dose all medications - continue accuchecks with glycemic control per SSI for target blood glucose < 180 mg/dL - continue to avoid benzodiazepine's, reduce the possibility of delirium - prn analgesia per pain score - Maintenance of sleep-wake cycle, avoid delirium - continue enteral nutritional support at goal rate as tolerated - G.I. & VTE prophylaxis - PT/OT/ROM exercises - continue mobility protocols for pressure ulcer prophylaxis - Monitor hemodynamics closely - continue other care per attending / other consultants - discharge planning ongoing concurrently COVID SPECIFIC INTERVENTIONS - COVID-19 PCR negative .... Re-evaluate in am & prn Subjective Date of service: 02/03/22 Principal diagnosis: Septic shock; AHRF; Anemia; Pneumonia; pleural effusion; HFrEF; Pulm HTN Interval history: Patient is seen today for: Septic shock; Acute hypoxemic respiratory failure; Anemia; Bilateral pneumonia; Left pleural effusion; HFrEF 30-35%; Pulm HTN RVSP 49 Seen and examined at bedside; 24hour events reviewed; nursing and respiratory care staff consulted; no adverse overnight events reported to me; resting in bed; refused MBS; doing well despite clamped chest tube; denies N/V/F/C Objective Vital Signs - 12hr 02/03/22 02/03/22 02/03/22 01:00 02:00 03:00 Temperature Pulse Rate 60 60 61 Pulse Rate [ From Monitor] Respiratory 18 14 17 Rate Blood Pressure 102/40 110/44 126/59 O2 Sat by Pulse 98 99 100 Oximetry O2 Sat by Pulse Oximetry [ Assessment] 02/03/22 02/03/22 02/03/22 04:00 05:00 06:00 Temperature 97.2 F L Pulse Rate 64 63 63 Pulse Rate [ From Monitor] Respiratory 10 L 17 9 L Rate Blood Pressure 131/56 126/52 124/49 O2 Sat by Pulse 100 100 100 Oximetry O2 Sat by Pulse Oximetry [ Assessment] 02/03/22 02/03/22 02/03/22 07:00 07:13 08:00 Temperature 97.7 F Pulse Rate 63 63 Pulse Rate [ 62 From Monitor] Respiratory 14 15 Rate Blood Pressure 128/52 134/55 O2 Sat by Pulse 100 100 Oximetry O2 Sat by Pulse Oximetry [ Assessment] 02/03/22 02/03/22 02/03/22 08:34 08:58 09:00 Temperature Pulse Rate 65 Pulse Rate [ From Monitor] Respiratory 13 Rate Blood Pressure 136/59 O2 Sat by Pulse 100 100 Oximetry O2 Sat by Pulse 99 Oximetry [ Assessment] 02/03/22 02/03/22 02/03/22 09:30 09:31 10:00 Temperature Pulse Rate 63 66 63 Pulse Rate [ From Monitor] Respiratory 18 Rate Blood Pressure 136/59 136/59 136/59 O2 Sat by Pulse 99 Oximetry O2 Sat by Pulse Oximetry [ Assessment] 02/03/22 02/03/22 02/03/22 10:13 11:00 11:05 Temperature Pulse Rate 60 60 Pulse Rate [ 62 60 From Monitor] Respiratory 18 18 21 Rate Blood Pressure 118/50 O2 Sat by Pulse 100 99 100 Oximetry O2 Sat by Pulse Oximetry [ Assessment] 02/03/22 11:49 Temperature 98.7 F Pulse Rate Pulse Rate [ From Monitor] Respiratory Rate Blood Pressure O2 Sat by Pulse Oximetry O2 Sat by Pulse Oximetry [ Assessment] Constitutional: alert, appears uncomfortable, other (normal respiratory effort at rest) Eyes: non-icteric ENT: oropharynx moist, other (+ Midline tracheostomy with minimal secretions) Neck: supple, no lymphadenopathy, no JVD Effort: mildly labored Ascultation: Bilateral: diminished breath sounds (bases), rhonchi, other (Right chest tube) Percussion: Right: not dull, Left: dull (bases) Cardiovascular: regular rate and rhythm, other (S1,S2) Gastrointestinal: normoactive bowel sounds, soft, non-tender, non-distended (protuberant) Integumentary: normal Extremities: no cyanosis, no edema, pink and warm, pulses normal Neurologic: non-focal exam (grossly), pupils equal and round, CN II-XII normal Psychiatric: mood appropriate, affect normal CBC and BMP: 02/03/22 04:00 02/03/22 04:00 ABG, PT/INR, D-dimer: ABG ABG pH 7.488 pH Units (7.350-7.450) H 01/25/22 12:20 ABG pCO2 38.2 mm Hg 01/25/22 12:20 ABG pO2 58.9 mm Hg (80.0-90.0) L 01/25/22 12:20 ABG O2 Saturation 94.9 % (95.0-99.0) L 01/25/22 12:20 PT/INR, D-dimer PT 16.9 Sec. (12.2-14.9) H 01/06/22 04:06 INR 1.23 (0.87-1.13) H 01/06/22 04:06 D-Dimer 2655.00 ng/mlDDU (0-234) H 11/11/21 04:28 Abnormal lab findings: Abnormal Labs 11/03/21 11/03/21 11/03/21 22:32 22:32 22:32 WBC 29.3 H RBC 2.93 L Hgb 6.1 L Hct 21.9 L MCV 75 L MCH 21 L MCHC 28 L RDW 19.7 H Plt Count Eos % (Auto) Eos # (Auto) Seg Neuts % (Manual) 97.0 H Lymphocytes % (Manual) 3.0 L Seg Neutrophils # Seg Neutrophils # Man 28.4 H Lymphocytes # (Manual) 0.9 L Monocytes # (Manual) PT 18.6 H INR 1.40 H APTT D-Dimer ABG pH ABG pO2 ABG HCO3 ABG O2 Saturation ABG Base Excess ABG Hemoglobin Oxyhemoglobin Sodium Potassium Chloride Carbon Dioxide 20 L BUN 33 H Creatinine Glucose 119 H POC Glucose Lactic Acid Calcium 8.3 L Phosphorus Magnesium AST ALT Alkaline Phosphatase Lactate Dehydrogenase Troponin T 0.035 H C-Reactive Protein NT-Pro-B Natriuret Pep Total Protein Albumin LDL Cholesterol Direct 34 L Vitamin B12 Urine WBC (Auto) Fluid Glucose Fluid Total Protein Vancomycin Trough Crossmatch 11/03/21 11/03/21 11/03/21 22:32 22:32 23:57 WBC RBC Hgb Hct MCV MCH MCHC RDW Plt Count Eos % (Auto) Eos # (Auto) Seg Neuts % (Manual) Lymphocytes % (Manual) Seg Neutrophils # Seg Neutrophils # Man Lymphocytes # (Manual) Monocytes # (Manual) PT INR APTT D-Dimer ABG pH ABG pO2 ABG HCO3 ABG O2 Saturation ABG Base Excess ABG Hemoglobin Oxyhemoglobin Sodium Potassium Chloride Carbon Dioxide BUN Creatinine Glucose POC Glucose Lactic Acid 3.70 H* Calcium Phosphorus Magnesium AST ALT Alkaline Phosphatase 139 H Lactate Dehydrogenase Troponin T C-Reactive Protein NT-Pro-B Natriuret Pep 7895 H Total Protein Albumin 3.5 L LDL Cholesterol Direct Vitamin B12 Urine WBC (Auto) Fluid Glucose Fluid Total Protein Vancomycin Trough Crossmatch See Detail 11/04/21 11/04/21 11/05/21 00:59 13:58 00:51 WBC 27.9 H RBC 3.28 L Hgb 7.3 L Hct 25.5 L MCV 78 L MCH 22 L MCHC 29 L RDW 19.1 H Plt Count Eos % (Auto) Eos # (Auto) Seg Neuts % (Manual) 96.0 H Lymphocytes % (Manual) 2.0 L Seg Neutrophils # Seg Neutrophils # Man 26.8 H Lymphocytes # (Manual) 0.6 L Monocytes # (Manual) PT INR APTT D-Dimer ABG pH ABG pO2 ABG HCO3 ABG O2 Saturation ABG Base Excess ABG Hemoglobin Oxyhemoglobin Sodium Potassium Chloride Carbon Dioxide BUN Creatinine Glucose POC Glucose Lactic Acid Calcium Phosphorus Magnesium AST ALT Alkaline Phosphatase Lactate Dehydrogenase Troponin T 0.051 H D 0.032 H D C-Reactive Protein NT-Pro-B Natriuret Pep Total Protein Albumin LDL Cholesterol Direct Vitamin B12 Urine WBC (Auto) Fluid Glucose Fluid Total Protein Vancomycin Trough Crossmatch 11/05/21 11/05/21 11/05/21 06:11 06:11 06:11 WBC 31.8 H RBC 3.57 L Hgb 8.0 L Hct 27.7 L MCV 78 L MCH 22 L MCHC 29 L RDW 19.2 H Plt Count Eos % (Auto) Eos # (Auto) Seg Neuts % (Manual) 91.0 H Lymphocytes % (Manual) 4.5 L Seg Neutrophils # Seg Neutrophils # Man 28.9 H Lymphocytes # (Manual) Monocytes # (Manual) 1.1 H PT INR APTT D-Dimer 1494.53 H ABG pH ABG pO2 ABG HCO3 ABG O2 Saturation ABG Base Excess ABG Hemoglobin Oxyhemoglobin Sodium Potassium Chloride Carbon Dioxide 19 L BUN 42 H Creatinine Glucose 115 H POC Glucose Lactic Acid Calcium Phosphorus Magnesium AST 43 H ALT Alkaline Phosphatase Lactate Dehydrogenase 187 H Troponin T C-Reactive Protein 22.20 H NT-Pro-B Natriuret Pep Total Protein 6.0 L Albumin 3.2 L LDL Cholesterol Direct Vitamin B12 Urine WBC (Auto) Fluid Glucose Fluid Total Protein Vancomycin Trough Crossmatch 11/05/21 11/05/21 11/06/21 06:11 12:15 00:30 WBC RBC Hgb Hct MCV MCH MCHC RDW Plt Count Eos % (Auto) Eos # (Auto) Seg Neuts % (Manual) Lymphocytes % (Manual) Seg Neutrophils # Seg Neutrophils # Man Lymphocytes # (Manual) Monocytes # (Manual) PT INR APTT D-Dimer ABG pH ABG pO2 ABG HCO3 ABG O2 Saturation ABG Base Excess ABG Hemoglobin Oxyhemoglobin Sodium Potassium Chloride Carbon Dioxide BUN Creatinine Glucose POC Glucose 113 H 69 L Lactic Acid Calcium Phosphorus Magnesium AST ALT Alkaline Phosphatase Lactate Dehydrogenase Troponin T 0.033 H C-Reactive Protein NT-Pro-B Natriuret Pep Total Protein Albumin LDL Cholesterol Direct Vitamin B12 Urine WBC (Auto) Fluid Glucose Fluid Total Protein Vancomycin Trough Crossmatch 11/06/21 11/06/21 11/06/21 05:50 15:50 15:50 WBC 25.5 H RBC 3.62 L Hgb 8.0 L Hct 27.5 L MCV 76 L MCH 22 L MCHC 29 L RDW 19.6 H Plt Count Eos % (Auto) Eos # (Auto) Seg Neuts % (Manual) 92.0 H Lymphocytes % (Manual) 5.0 L Seg Neutrophils # Seg Neutrophils # Man 23.5 H Lymphocytes # (Manual) Monocytes # (Manual) PT INR APTT D-Dimer ABG pH 7.305 L ABG pO2 ABG HCO3 15.8 L ABG O2 Saturation ABG Base Excess -9.6 L ABG Hemoglobin 8.6 L Oxyhemoglobin 94.6 L Sodium Potassium Chloride 113.9 H Carbon Dioxide 17 L BUN 56 H Creatinine Glucose 114 H POC Glucose Lactic Acid Calcium 7.9 L Phosphorus Magnesium AST 1410 H ALT 934 H Alkaline Phosphatase 142 H Lactate Dehydrogenase Troponin T C-Reactive Protein NT-Pro-B Natriuret Pep Total Protein 5.0 L Albumin 2.6 L LDL Cholesterol Direct Vitamin B12 Urine WBC (Auto) Fluid Glucose Fluid Total Protein Vancomycin Trough Crossmatch 11/07/21 11/07/21 11/07/21 03:30 04:50 08:07 WBC RBC Hgb Hct MCV MCH MCHC RDW Plt Count Eos % (Auto) Eos # (Auto) Seg Neuts % (Manual) Lymphocytes % (Manual) Seg Neutrophils # Seg Neutrophils # Man Lymphocytes # (Manual) Monocytes # (Manual) PT INR APTT D-Dimer ABG pH ABG pO2 296.9 H ABG HCO3 18.1 L ABG O2 Saturation 99.5 H ABG Base Excess -5.9 L ABG Hemoglobin 7.6 L Oxyhemoglobin Sodium Potassium Chloride Carbon Dioxide BUN Creatinine Glucose POC Glucose 106 H 108 H Lactic Acid Calcium Phosphorus Magnesium AST ALT Alkaline Phosphatase Lactate Dehydrogenase Troponin T C-Reactive Protein NT-Pro-B Natriuret Pep Total Protein Albumin LDL Cholesterol Direct Vitamin B12 Urine WBC (Auto) Fluid Glucose Fluid Total Protein Vancomycin Trough Crossmatch 11/08/21 11/08/21 11/08/21 03:10 18:05 23:43 WBC RBC Hgb Hct MCV MCH MCHC RDW Plt Count Eos % (Auto) Eos # (Auto) Seg Neuts % (Manual) Lymphocytes % (Manual) Seg Neutrophils # Seg Neutrophils # Man Lymphocytes # (Manual) Monocytes # (Manual) PT INR APTT D-Dimer ABG pH ABG pO2 127.4 H ABG HCO3 ABG O2 Saturation ABG Base Excess -3.4 L ABG Hemoglobin 7.4 L Oxyhemoglobin Sodium Potassium Chloride Carbon Dioxide BUN Creatinine Glucose POC Glucose 113 H 141 H Lactic Acid Calcium Phosphorus Magnesium AST ALT Alkaline Phosphatase Lactate Dehydrogenase Troponin T C-Reactive Protein NT-Pro-B Natriuret Pep Total Protein Albumin LDL Cholesterol Direct Vitamin B12 Urine WBC (Auto) Fluid Glucose Fluid Total Protein Vancomycin Trough Crossmatch 11/08/21 11/08/21 11/09/21 Unknown Unknown 02:00 WBC 14.5 H RBC 3.35 L Hgb 7.5 L 8.1 L Hct 25.4 L 27.6 L MCV 76 L 76 L MCH 23 L 22 L MCHC RDW 19.9 H 19.9 H Plt Count Eos % (Auto) Eos # (Auto) Seg Neuts % (Manual) Lymphocytes % (Manual) Seg Neutrophils # Seg Neutrophils # Man Lymphocytes # (Manual) Monocytes # (Manual) PT INR APTT D-Dimer ABG pH ABG pO2 ABG HCO3 ABG O2 Saturation ABG Base Excess ABG Hemoglobin Oxyhemoglobin Sodium 154 H D Potassium 3.3 L Chloride 120.7 H Carbon Dioxide 20 L BUN 38 H Creatinine Glucose POC Glucose Lactic Acid Calcium 8.3 L Phosphorus Magnesium AST ALT Alkaline Phosphatase Lactate Dehydrogenase Troponin T C-Reactive Protein NT-Pro-B Natriuret Pep Total Protein Albumin LDL Cholesterol Direct Vitamin B12 Urine WBC (Auto) Fluid Glucose Fluid Total Protein Vancomycin Trough Crossmatch 11/09/21 11/09/21 11/09/21 02:00 02:31 05:12 WBC RBC Hgb Hct MCV MCH MCHC RDW Plt Count Eos % (Auto) Eos # (Auto) Seg Neuts % (Manual) Lymphocytes % (Manual) Seg Neutrophils # Seg Neutrophils # Man Lymphocytes # (Manual) Monocytes # (Manual) PT INR APTT D-Dimer ABG pH 7.479 H ABG pO2 121.3 H ABG HCO3 ABG O2 Saturation ABG Base Excess ABG Hemoglobin 7.3 L Oxyhemoglobin Sodium Potassium Chloride 112.5 H Carbon Dioxide BUN 33 H Creatinine Glucose 161 H POC Glucose 135 H Lactic Acid Calcium Phosphorus Magnesium AST 251 H ALT 481 H Alkaline Phosphatase Lactate Dehydrogenase Troponin T C-Reactive Protein NT-Pro-B Natriuret Pep Total Protein 5.0 L Albumin 2.8 L LDL Cholesterol Direct Vitamin B12 Urine WBC (Auto) Fluid Glucose Fluid Total Protein Vancomycin Trough Crossmatch 11/09/21 11/09/21 11/09/21 11:33 16:32 23:28 WBC RBC Hgb Hct MCV MCH MCHC RDW Plt Count Eos % (Auto) Eos # (Auto) Seg Neuts % (Manual) Lymphocytes % (Manual) Seg Neutrophils # Seg Neutrophils # Man Lymphocytes # (Manual) Monocytes # (Manual) PT INR APTT D-Dimer ABG pH ABG pO2 ABG HCO3 ABG O2 Saturation ABG Base Excess ABG Hemoglobin Oxyhemoglobin Sodium Potassium Chloride Carbon Dioxide BUN Creatinine Glucose POC Glucose 132 H 133 H 143 H Lactic Acid Calcium Phosphorus Magnesium AST ALT Alkaline Phosphatase Lactate Dehydrogenase Troponin T C-Reactive Protein NT-Pro-B Natriuret Pep Total Protein Albumin LDL Cholesterol Direct Vitamin B12 Urine WBC (Auto) Fluid Glucose Fluid Total Protein Vancomycin Trough Crossmatch 11/10/21 11/10/21 11/10/21 04:00 04:00 05:35 WBC 16.0 H RBC 3.61 L Hgb 8.0 L Hct 27.1 L MCV 75 L MCH 22 L MCHC RDW 20.4 H Plt Count Eos % (Auto) Eos # (Auto) Seg Neuts % (Manual) Lymphocytes % (Manual) Seg Neutrophils # Seg Neutrophils # Man Lymphocytes # (Manual) Monocytes # (Manual) PT INR APTT D-Dimer ABG pH ABG pO2 ABG HCO3 ABG O2 Saturation ABG Base Excess ABG Hemoglobin Oxyhemoglobin Sodium 149 H Potassium Chloride 114.1 H Carbon Dioxide BUN 31 H Creatinine Glucose 148 H POC Glucose 132 H Lactic Acid Calcium 8.2 L Phosphorus Magnesium AST ALT Alkaline Phosphatase Lactate Dehydrogenase Troponin T C-Reactive Protein NT-Pro-B Natriuret Pep Total Protein Albumin LDL Cholesterol Direct Vitamin B12 Urine WBC (Auto) Fluid Glucose Fluid Total Protein Vancomycin Trough Crossmatch 11/10/21 11/10/21 11/10/21 11:31 14:08 15:35 WBC RBC Hgb Hct MCV MCH MCHC RDW Plt Count Eos % (Auto) Eos # (Auto) Seg Neuts % (Manual) Lymphocytes % (Manual) Seg Neutrophils # Seg Neutrophils # Man Lymphocytes # (Manual) Monocytes # (Manual) PT INR APTT D-Dimer ABG pH ABG pO2 126.6 H ABG HCO3 ABG O2 Saturation ABG Base Excess ABG Hemoglobin 7.4 L Oxyhemoglobin Sodium Potassium Chloride Carbon Dioxide BUN Creatinine Glucose POC Glucose 147 H Lactic Acid Calcium Phosphorus Magnesium AST ALT Alkaline Phosphatase Lactate Dehydrogenase Troponin T C-Reactive Protein NT-Pro-B Natriuret Pep Total Protein Albumin LDL Cholesterol Direct Vitamin B12 1823 H Urine WBC (Auto) Fluid Glucose Fluid Total Protein Vancomycin Trough Crossmatch 11/10/21 11/11/21 11/11/21 17:53 00:55 04:28 WBC RBC Hgb Hct MCV MCH MCHC RDW Plt Count Eos % (Auto) Eos # (Auto) Seg Neuts % (Manual) Lymphocytes % (Manual) Seg Neutrophils # Seg Neutrophils # Man Lymphocytes # (Manual) Monocytes # (Manual) PT INR APTT D-Dimer ABG pH ABG pO2 ABG HCO3 ABG O2 Saturation ABG Base Excess ABG Hemoglobin Oxyhemoglobin Sodium 149 H Potassium Chloride 112.2 H Carbon Dioxide BUN 34 H Creatinine Glucose 148 H POC Glucose 140 H 145 H Lactic Acid Calcium 7.9 L Phosphorus Magnesium AST 53 H ALT 203 H Alkaline Phosphatase Lactate Dehydrogenase Troponin T C-Reactive Protein NT-Pro-B Natriuret Pep Total Protein 4.9 L Albumin 2.6 L LDL Cholesterol Direct Vitamin B12 Urine WBC (Auto) Fluid Glucose Fluid Total Protein Vancomycin Trough Crossmatch 11/11/21 11/11/21 11/11/21 04:28 04:28 05:28 WBC 20.9 H RBC 3.47 L Hgb 7.5 L Hct 26.0 L MCV 75 L MCH 22 L MCHC 29 L RDW 21.6 H Plt Count 132 L Eos % (Auto) Eos # (Auto) Seg Neuts % (Manual) Lymphocytes % (Manual) Seg Neutrophils # Seg Neutrophils # Man Lymphocytes # (Manual) Monocytes # (Manual) PT INR APTT D-Dimer 2655.00 H ABG pH ABG pO2 ABG HCO3 ABG O2 Saturation ABG Base Excess ABG Hemoglobin Oxyhemoglobin Sodium Potassium Chloride Carbon Dioxide BUN Creatinine Glucose POC Glucose 154 H Lactic Acid Calcium Phosphorus Magnesium AST ALT Alkaline Phosphatase Lactate Dehydrogenase Troponin T C-Reactive Protein NT-Pro-B Natriuret Pep Total Protein Albumin LDL Cholesterol Direct Vitamin B12 Urine WBC (Auto) Fluid Glucose Fluid Total Protein Vancomycin Trough Crossmatch 11/11/21 11/11/21 11/12/21 12:38 18:13 00:14 WBC RBC Hgb Hct MCV MCH MCHC RDW Plt Count Eos % (Auto) Eos # (Auto) Seg Neuts % (Manual) Lymphocytes % (Manual) Seg Neutrophils # Seg Neutrophils # Man Lymphocytes # (Manual) Monocytes # (Manual) PT INR APTT D-Dimer ABG pH ABG pO2 ABG HCO3 ABG O2 Saturation ABG Base Excess ABG Hemoglobin Oxyhemoglobin Sodium Potassium Chloride Carbon Dioxide BUN Creatinine Glucose POC Glucose 137 H 108 H 137 H Lactic Acid Calcium Phosphorus Magnesium AST ALT Alkaline Phosphatase Lactate Dehydrogenase Troponin T C-Reactive Protein NT-Pro-B Natriuret Pep Total Protein Albumin LDL Cholesterol Direct Vitamin B12 Urine WBC (Auto) Fluid Glucose Fluid Total Protein Vancomycin Trough Crossmatch 11/12/21 11/12/21 11/12/21 05:40 06:24 11:12 WBC RBC Hgb Hct MCV MCH MCHC RDW Plt Count Eos % (Auto) Eos # (Auto) Seg Neuts % (Manual) Lymphocytes % (Manual) Seg Neutrophils # Seg Neutrophils # Man Lymphocytes # (Manual) Monocytes # (Manual) PT INR APTT D-Dimer ABG pH 7.586 H ABG pO2 150.6 H ABG HCO3 27.2 H ABG O2 Saturation 99.1 H ABG Base Excess 5.2 H ABG Hemoglobin 7.5 L Oxyhemoglobin Sodium Potassium Chloride Carbon Dioxide BUN Creatinine Glucose POC Glucose 132 H 140 H Lactic Acid Calcium Phosphorus Magnesium AST ALT Alkaline Phosphatase Lactate Dehydrogenase Troponin T C-Reactive Protein NT-Pro-B Natriuret Pep Total Protein Albumin LDL Cholesterol Direct Vitamin B12 Urine WBC (Auto) Fluid Glucose Fluid Total Protein Vancomycin Trough Crossmatch 11/12/21 11/12/21 11/12/21 14:50 14:50 17:13 WBC 19.8 H RBC 3.27 L Hgb 7.1 L Hct 24.5 L MCV 75 L MCH 22 L MCHC 29 L RDW 22.3 H Plt Count Eos % (Auto) Eos # (Auto) Seg Neuts % (Manual) Lymphocytes % (Manual) Seg Neutrophils # Seg Neutrophils # Man Lymphocytes # (Manual) Monocytes # (Manual) PT INR APTT D-Dimer ABG pH ABG pO2 ABG HCO3 ABG O2 Saturation ABG Base Excess ABG Hemoglobin Oxyhemoglobin Sodium 150 H Potassium 3.3 L Chloride 112.0 H Carbon Dioxide BUN 40 H Creatinine Glucose 151 H POC Glucose 121 H Lactic Acid Calcium 7.4 L Phosphorus 1.70 L Magnesium 1.40 L AST ALT Alkaline Phosphatase Lactate Dehydrogenase Troponin T C-Reactive Protein NT-Pro-B Natriuret Pep Total Protein Albumin LDL Cholesterol Direct Vitamin B12 Urine WBC (Auto) Fluid Glucose Fluid Total Protein Vancomycin Trough Crossmatch 11/12/21 11/13/21 11/13/21 23:19 05:34 06:30 WBC RBC Hgb Hct MCV MCH MCHC RDW Plt Count Eos % (Auto) Eos # (Auto) Seg Neuts % (Manual) Lymphocytes % (Manual) Seg Neutrophils # Seg Neutrophils # Man Lymphocytes # (Manual) Monocytes # (Manual) PT INR APTT D-Dimer ABG pH ABG pO2 ABG HCO3 ABG O2 Saturation ABG Base Excess ABG Hemoglobin Oxyhemoglobin Sodium 149 H Potassium Chloride 60.0 L Carbon Dioxide BUN 40 H Creatinine Glucose 146 H POC Glucose 113 H 132 H Lactic Acid Calcium 7.3 L Phosphorus Magnesium 2.40 H AST ALT 72 H Alkaline Phosphatase Lactate Dehydrogenase Troponin T C-Reactive Protein NT-Pro-B Natriuret Pep Total Protein 5.2 L Albumin 2.2 L LDL Cholesterol Direct Vitamin B12 Urine WBC (Auto) Fluid Glucose Fluid Total Protein Vancomycin Trough Crossmatch 11/13/21 11/13/21 11/13/21 06:30 08:30 11:19 WBC 21.2 H RBC 3.12 L Hgb 6.8 L Hct 23.2 L MCV 74 L MCH 22 L MCHC 29 L RDW 22.2 H Plt Count 135 L Eos % (Auto) Eos # (Auto) Seg Neuts % (Manual) Lymphocytes % (Manual) Seg Neutrophils # Seg Neutrophils # Man Lymphocytes # (Manual) Monocytes # (Manual) PT INR APTT D-Dimer ABG pH ABG pO2 ABG HCO3 ABG O2 Saturation ABG Base Excess ABG Hemoglobin Oxyhemoglobin Sodium Potassium Chloride Carbon Dioxide BUN Creatinine Glucose POC Glucose 136 H Lactic Acid Calcium Phosphorus Magnesium AST ALT Alkaline Phosphatase Lactate Dehydrogenase Troponin T C-Reactive Protein NT-Pro-B Natriuret Pep Total Protein Albumin LDL Cholesterol Direct Vitamin B12 Urine WBC (Auto) Fluid Glucose Fluid Total Protein Vancomycin Trough Crossmatch See Detail 11/13/21 11/14/21 11/14/21 18:21 00:01 04:46 WBC 20.0 H RBC 3.41 L Hgb 7.9 L Hct 26.8 L MCV MCH 23 L MCHC 29 L RDW 24.0 H Plt Count Eos % (Auto) Eos # (Auto) Seg Neuts % (Manual) Lymphocytes % (Manual) Seg Neutrophils # Seg Neutrophils # Man Lymphocytes # (Manual) Monocytes # (Manual) PT INR APTT D-Dimer ABG pH ABG pO2 ABG HCO3 ABG O2 Saturation ABG Base Excess ABG Hemoglobin Oxyhemoglobin Sodium Potassium Chloride Carbon Dioxide BUN Creatinine Glucose POC Glucose 149 H 141 H Lactic Acid Calcium Phosphorus Magnesium AST ALT Alkaline Phosphatase Lactate Dehydrogenase Troponin T C-Reactive Protein NT-Pro-B Natriuret Pep Total Protein Albumin LDL Cholesterol Direct Vitamin B12 Urine WBC (Auto) Fluid Glucose Fluid Total Protein Vancomycin Trough Crossmatch 11/14/21 11/14/21 11/14/21 04:46 05:10 11:10 WBC RBC Hgb Hct MCV MCH MCHC RDW Plt Count Eos % (Auto) Eos # (Auto) Seg Neuts % (Manual) Lymphocytes % (Manual) Seg Neutrophils # Seg Neutrophils # Man Lymphocytes # (Manual) Monocytes # (Manual) PT INR APTT D-Dimer ABG pH ABG pO2 ABG HCO3 ABG O2 Saturation ABG Base Excess ABG Hemoglobin Oxyhemoglobin Sodium 148 H Potassium Chloride 113.1 H Carbon Dioxide BUN 43 H Creatinine Glucose 140 H POC Glucose 132 H 133 H Lactic Acid Calcium 7.5 L Phosphorus Magnesium AST ALT Alkaline Phosphatase Lactate Dehydrogenase Troponin T C-Reactive Protein NT-Pro-B Natriuret Pep Total Protein Albumin LDL Cholesterol Direct Vitamin B12 Urine WBC (Auto) Fluid Glucose Fluid Total Protein Vancomycin Trough Crossmatch 11/14/21 11/14/21 11/14/21 16:14 17:48 23:23 WBC RBC Hgb Hct MCV MCH MCHC RDW Plt Count Eos % (Auto) Eos # (Auto) Seg Neuts % (Manual) Lymphocytes % (Manual) Seg Neutrophils # Seg Neutrophils # Man Lymphocytes # (Manual) Monocytes # (Manual) PT INR APTT D-Dimer ABG pH ABG pO2 ABG HCO3 28.0 H ABG O2 Saturation ABG Base Excess 3.1 H ABG Hemoglobin 5.8 L Oxyhemoglobin 94.8 L Sodium Potassium Chloride Carbon Dioxide BUN Creatinine Glucose POC Glucose 130 H 136 H Lactic Acid Calcium Phosphorus Magnesium AST ALT Alkaline Phosphatase Lactate Dehydrogenase Troponin T C-Reactive Protein NT-Pro-B Natriuret Pep Total Protein Albumin LDL Cholesterol Direct Vitamin B12 Urine WBC (Auto) Fluid Glucose Fluid Total Protein Vancomycin Trough Crossmatch 11/15/21 11/15/21 11/15/21 05:20 05:50 05:50 WBC 19.9 H RBC 3.50 L Hgb 8.2 L Hct 27.9 L MCV MCH 23 L MCHC 29 L RDW 24.9 H Plt Count Eos % (Auto) Eos # (Auto) Seg Neuts % (Manual) Lymphocytes % (Manual) Seg Neutrophils # Seg Neutrophils # Man Lymphocytes # (Manual) Monocytes # (Manual) PT INR APTT D-Dimer ABG pH ABG pO2 ABG HCO3 ABG O2 Saturation ABG Base Excess ABG Hemoglobin Oxyhemoglobin Sodium 149 H Potassium Chloride 112.0 H Carbon Dioxide BUN 48 H Creatinine Glucose 152 H POC Glucose 137 H Lactic Acid Calcium 7.9 L Phosphorus Magnesium AST ALT Alkaline Phosphatase Lactate Dehydrogenase Troponin T C-Reactive Protein NT-Pro-B Natriuret Pep Total Protein Albumin LDL Cholesterol Direct Vitamin B12 Urine WBC (Auto) Fluid Glucose Fluid Total Protein Vancomycin Trough Crossmatch 11/15/21 11/15/21 11/15/21 12:12 17:07 23:24 WBC RBC Hgb Hct MCV MCH MCHC RDW Plt Count Eos % (Auto) Eos # (Auto) Seg Neuts % (Manual) Lymphocytes % (Manual) Seg Neutrophils # Seg Neutrophils # Man Lymphocytes # (Manual) Monocytes # (Manual) PT INR APTT D-Dimer ABG pH ABG pO2 ABG HCO3 ABG O2 Saturation ABG Base Excess ABG Hemoglobin Oxyhemoglobin Sodium Potassium Chloride Carbon Dioxide BUN Creatinine Glucose POC Glucose 114 H 135 H 123 H Lactic Acid Calcium Phosphorus Magnesium AST ALT Alkaline Phosphatase Lactate Dehydrogenase Troponin T C-Reactive Protein NT-Pro-B Natriuret Pep Total Protein Albumin LDL Cholesterol Direct Vitamin B12 Urine WBC (Auto) Fluid Glucose Fluid Total Protein Vancomycin Trough Crossmatch 11/16/21 11/16/21 11/16/21 05:21 10:00 10:00 WBC 21.7 H RBC 2.57 L Hgb 6.0 L Hct 20.2 L D MCV MCH 24 L MCHC RDW 26.3 H Plt Count Eos % (Auto) Eos # (Auto) Seg Neuts % (Manual) Lymphocytes % (Manual) Seg Neutrophils # Seg Neutrophils # Man Lymphocytes # (Manual) Monocytes # (Manual) PT INR APTT D-Dimer ABG pH ABG pO2 ABG HCO3 ABG O2 Saturation ABG Base Excess ABG Hemoglobin Oxyhemoglobin Sodium 153 H Potassium Chloride 114.9 H Carbon Dioxide BUN 74 H Creatinine Glucose 155 H POC Glucose 127 H Lactic Acid Calcium 8.1 L Phosphorus Magnesium AST ALT Alkaline Phosphatase Lactate Dehydrogenase Troponin T C-Reactive Protein NT-Pro-B Natriuret Pep Total Protein Albumin LDL Cholesterol Direct Vitamin B12 Urine WBC (Auto) Fluid Glucose Fluid Total Protein Vancomycin Trough Crossmatch 11/16/21 11/16/21 11/16/21 11:34 14:00 15:25 WBC 17.2 H RBC 2.08 L Hgb 4.7 L* Hct 16.2 L* MCV 78 L MCH 23 L MCHC 29 L RDW 26.0 H Plt Count Eos % (Auto) Eos # (Auto) Seg Neuts % (Manual) 87.0 H Lymphocytes % (Manual) 8.0 L Seg Neutrophils # Seg Neutrophils # Man 15.0 H Lymphocytes # (Manual) Monocytes # (Manual) 0.9 H PT INR APTT D-Dimer ABG pH ABG pO2 ABG HCO3 ABG O2 Saturation ABG Base Excess ABG Hemoglobin Oxyhemoglobin Sodium Potassium Chloride Carbon Dioxide BUN Creatinine Glucose POC Glucose 131 H Lactic Acid Calcium Phosphorus Magnesium AST ALT Alkaline Phosphatase Lactate Dehydrogenase Troponin T C-Reactive Protein NT-Pro-B Natriuret Pep Total Protein Albumin LDL Cholesterol Direct Vitamin B12 Urine WBC (Auto) Fluid Glucose Fluid Total Protein Vancomycin Trough Crossmatch See Detail 11/16/21 11/16/21 11/16/21 15:25 17:21 22:43 WBC RBC Hgb 8.6 L D Hct 27.7 L D MCV MCH MCHC RDW Plt Count Eos % (Auto) Eos # (Auto) Seg Neuts % (Manual) Lymphocytes % (Manual) Seg Neutrophils # Seg Neutrophils # Man Lymphocytes # (Manual) Monocytes # (Manual) PT INR APTT D-Dimer ABG pH ABG pO2 ABG HCO3 ABG O2 Saturation ABG Base Excess ABG Hemoglobin Oxyhemoglobin Sodium 148 H Potassium Chloride 113.2 H Carbon Dioxide BUN 84 H Creatinine Glucose 164 H POC Glucose 124 H Lactic Acid Calcium 7.6 L Phosphorus Magnesium AST ALT Alkaline Phosphatase Lactate Dehydrogenase Troponin T C-Reactive Protein NT-Pro-B Natriuret Pep Total Protein Albumin LDL Cholesterol Direct Vitamin B12 Urine WBC (Auto) Fluid Glucose Fluid Total Protein Vancomycin Trough Crossmatch 11/16/21 11/17/21 11/17/21 23:07 05:33 05:56 WBC 25.1 H RBC 3.47 L Hgb 8.7 L Hct 28.5 L MCV MCH 25 L MCHC RDW 22.3 H Plt Count Eos % (Auto) Eos # (Auto) Seg Neuts % (Manual) Lymphocytes % (Manual) Seg Neutrophils # Seg Neutrophils # Man Lymphocytes # (Manual) Monocytes # (Manual) PT INR APTT D-Dimer ABG pH ABG pO2 ABG HCO3 ABG O2 Saturation ABG Base Excess ABG Hemoglobin Oxyhemoglobin Sodium Potassium Chloride Carbon Dioxide BUN Creatinine Glucose POC Glucose 128 H 133 H Lactic Acid Calcium Phosphorus Magnesium AST ALT Alkaline Phosphatase Lactate Dehydrogenase Troponin T C-Reactive Protein NT-Pro-B Natriuret Pep Total Protein Albumin LDL Cholesterol Direct Vitamin B12 Urine WBC (Auto) Fluid Glucose Fluid Total Protein Vancomycin Trough Crossmatch 11/17/21 11/17/21 11/17/21 05:56 11:00 11:55 WBC RBC Hgb 8.3 L Hct 26.9 L MCV MCH MCHC RDW Plt Count Eos % (Auto) Eos # (Auto) Seg Neuts % (Manual) Lymphocytes % (Manual) Seg Neutrophils # Seg Neutrophils # Man Lymphocytes # (Manual) Monocytes # (Manual) PT INR APTT D-Dimer ABG pH ABG pO2 ABG HCO3 ABG O2 Saturation ABG Base Excess ABG Hemoglobin Oxyhemoglobin Sodium 151 H Potassium Chloride 113.6 H Carbon Dioxide BUN 85 H Creatinine Glucose 132 H POC Glucose 121 H Lactic Acid Calcium 7.8 L Phosphorus Magnesium AST ALT Alkaline Phosphatase Lactate Dehydrogenase Troponin T C-Reactive Protein NT-Pro-B Natriuret Pep Total Protein 5.1 L Albumin 2.2 L LDL Cholesterol Direct Vitamin B12 Urine WBC (Auto) Fluid Glucose Fluid Total Protein Vancomycin Trough Crossmatch 11/17/21 11/17/21 11/18/21 18:04 18:55 00:26 WBC RBC Hgb 7.5 L 7.1 L Hct 24.8 L 23.6 L MCV MCH MCHC RDW Plt Count Eos % (Auto) Eos # (Auto) Seg Neuts % (Manual) Lymphocytes % (Manual) Seg Neutrophils # Seg Neutrophils # Man Lymphocytes # (Manual) Monocytes # (Manual) PT INR APTT D-Dimer ABG pH ABG pO2 ABG HCO3 ABG O2 Saturation ABG Base Excess ABG Hemoglobin Oxyhemoglobin Sodium Potassium Chloride Carbon Dioxide BUN Creatinine Glucose POC Glucose 144 H Lactic Acid Calcium Phosphorus Magnesium AST ALT Alkaline Phosphatase Lactate Dehydrogenase Troponin T C-Reactive Protein NT-Pro-B Natriuret Pep Total Protein Albumin LDL Cholesterol Direct Vitamin B12 Urine WBC (Auto) Fluid Glucose Fluid Total Protein Vancomycin Trough Crossmatch 11/18/21 11/18/21 11/18/21 00:43 05:10 05:10 WBC 12.5 H RBC 2.39 L Hgb 6.1 L Hct 20.2 L MCV MCH 25 L MCHC RDW 23.2 H Plt Count Eos % (Auto) Eos # (Auto) Seg Neuts % (Manual) Lymphocytes % (Manual) Seg Neutrophils # Seg Neutrophils # Man Lymphocytes # (Manual) Monocytes # (Manual) PT INR APTT D-Dimer ABG pH ABG pO2 ABG HCO3 ABG O2 Saturation ABG Base Excess ABG Hemoglobin Oxyhemoglobin Sodium 131 L D Potassium 2.9 L* D Chloride 97.8 L Carbon Dioxide BUN 58 H Creatinine Glucose 665 H* POC Glucose 139 H Lactic Acid Calcium 7.0 L Phosphorus 2.20 L D Magnesium 1.50 L AST ALT Alkaline Phosphatase Lactate Dehydrogenase Troponin T C-Reactive Protein NT-Pro-B Natriuret Pep Total Protein Albumin LDL Cholesterol Direct Vitamin B12 Urine WBC (Auto) Fluid Glucose Fluid Total Protein Vancomycin Trough Crossmatch 11/18/21 11/18/21 11/18/21 05:23 07:10 10:45 WBC RBC Hgb Hct MCV MCH MCHC RDW Plt Count Eos % (Auto) Eos # (Auto) Seg Neuts % (Manual) Lymphocytes % (Manual) Seg Neutrophils # Seg Neutrophils # Man Lymphocytes # (Manual) Monocytes # (Manual) PT INR APTT D-Dimer ABG pH ABG pO2 ABG HCO3 ABG O2 Saturation ABG Base Excess ABG Hemoglobin Oxyhemoglobin Sodium 148 H D Potassium 3.1 L Chloride 111.9 H Carbon Dioxide BUN 63 H Creatinine Glucose 141 H POC Glucose 124 H Lactic Acid Calcium 8.1 L D Phosphorus Magnesium AST ALT Alkaline Phosphatase Lactate Dehydrogenase Troponin T C-Reactive Protein NT-Pro-B Natriuret Pep Total Protein Albumin LDL Cholesterol Direct Vitamin B12 Urine WBC (Auto) Fluid Glucose Fluid Total Protein Vancomycin Trough Crossmatch See Detail 11/18/21 11/19/21 11/19/21 11:57 00:19 04:55 WBC RBC 3.35 L Hgb 9.0 L 8.9 L Hct 28.3 L D 28.1 L MCV MCH 27 L MCHC RDW 20.3 H Plt Count Eos % (Auto) Eos # (Auto) Seg Neuts % (Manual) Lymphocytes % (Manual) Seg Neutrophils # Seg Neutrophils # Man Lymphocytes # (Manual) Monocytes # (Manual) PT INR APTT D-Dimer ABG pH ABG pO2 ABG HCO3 ABG O2 Saturation ABG Base Excess ABG Hemoglobin Oxyhemoglobin Sodium Potassium Chloride Carbon Dioxide BUN Creatinine Glucose POC Glucose 119 H Lactic Acid Calcium Phosphorus Magnesium AST ALT Alkaline Phosphatase Lactate Dehydrogenase Troponin T C-Reactive Protein NT-Pro-B Natriuret Pep Total Protein Albumin LDL Cholesterol Direct Vitamin B12 Urine WBC (Auto) Fluid Glucose Fluid Total Protein Vancomycin Trough Crossmatch 11/19/21 11/19/21 11/20/21 04:55 05:42 00:55 WBC RBC Hgb 9.0 L Hct 28.6 L MCV MCH MCHC RDW Plt Count Eos % (Auto) Eos # (Auto) Seg Neuts % (Manual) Lymphocytes % (Manual) Seg Neutrophils # Seg Neutrophils # Man Lymphocytes # (Manual) Monocytes # (Manual) PT INR APTT D-Dimer ABG pH ABG pO2 ABG HCO3 ABG O2 Saturation ABG Base Excess ABG Hemoglobin Oxyhemoglobin Sodium Potassium 3.5 L Chloride 108.6 H Carbon Dioxide BUN 47 H Creatinine Glucose 207 H POC Glucose 63 L Lactic Acid Calcium 7.1 L Phosphorus Magnesium AST ALT Alkaline Phosphatase Lactate Dehydrogenase Troponin T C-Reactive Protein NT-Pro-B Natriuret Pep Total Protein Albumin LDL Cholesterol Direct Vitamin B12 Urine WBC (Auto) Fluid Glucose Fluid Total Protein Vancomycin Trough Crossmatch 11/20/21 11/20/21 11/20/21 05:40 05:40 Unknown WBC RBC 3.40 L Hgb 9.1 L Hct 28.8 L MCV MCH 27 L MCHC RDW 20.7 H Plt Count Eos % (Auto) Eos # (Auto) Seg Neuts % (Manual) Lymphocytes % (Manual) Seg Neutrophils # Seg Neutrophils # Man Lymphocytes # (Manual) Monocytes # (Manual) PT INR APTT D-Dimer ABG pH ABG pO2 ABG HCO3 ABG O2 Saturation ABG Base Excess -2.7 L ABG Hemoglobin 9.5 L Oxyhemoglobin 94.3 L Sodium Potassium 3.5 L Chloride 108.9 H Carbon Dioxide BUN 37 H Creatinine Glucose 117 H POC Glucose Lactic Acid Calcium 7.5 L Phosphorus Magnesium AST ALT Alkaline Phosphatase Lactate Dehydrogenase Troponin T C-Reactive Protein NT-Pro-B Natriuret Pep Total Protein Albumin LDL Cholesterol Direct Vitamin B12 Urine WBC (Auto) Fluid Glucose Fluid Total Protein Vancomycin Trough Crossmatch 11/21/21 11/21/21 11/21/21 04:30 04:30 16:00 WBC RBC 3.25 L Hgb 8.6 L Hct 28.1 L MCV MCH 26 L MCHC RDW 20.7 H Plt Count Eos % (Auto) Eos # (Auto) Seg Neuts % (Manual) Lymphocytes % (Manual) Seg Neutrophils # Seg Neutrophils # Man Lymphocytes # (Manual) Monocytes # (Manual) PT INR APTT D-Dimer ABG pH ABG pO2 114.2 H ABG HCO3 ABG O2 Saturation ABG Base Excess ABG Hemoglobin 9.1 L Oxyhemoglobin Sodium 134 L Potassium Chloride Carbon Dioxide 20 L BUN 34 H Creatinine Glucose POC Glucose Lactic Acid Calcium 7.1 L Phosphorus Magnesium AST ALT Alkaline Phosphatase Lactate Dehydrogenase Troponin T C-Reactive Protein NT-Pro-B Natriuret Pep Total Protein Albumin LDL Cholesterol Direct Vitamin B12 Urine WBC (Auto) Fluid Glucose Fluid Total Protein Vancomycin Trough Crossmatch 11/22/21 11/22/21 11/22/21 07:07 07:07 23:54 WBC RBC 3.30 L Hgb 9.0 L Hct 28.5 L MCV MCH 27 L MCHC RDW 21.0 H Plt Count Eos % (Auto) Eos # (Auto) Seg Neuts % (Manual) Lymphocytes % (Manual) Seg Neutrophils # Seg Neutrophils # Man Lymphocytes # (Manual) Monocytes # (Manual) PT INR APTT D-Dimer ABG pH ABG pO2 ABG HCO3 ABG O2 Saturation ABG Base Excess ABG Hemoglobin Oxyhemoglobin Sodium Potassium Chloride Carbon Dioxide BUN 32 H Creatinine Glucose 106 H POC Glucose 110 H Lactic Acid Calcium 7.5 L Phosphorus Magnesium AST ALT Alkaline Phosphatase Lactate Dehydrogenase Troponin T C-Reactive Protein NT-Pro-B Natriuret Pep Total Protein Albumin LDL Cholesterol Direct Vitamin B12 Urine WBC (Auto) Fluid Glucose Fluid Total Protein Vancomycin Trough Crossmatch 11/23/21 11/23/21 11/23/21 04:38 04:38 06:01 WBC RBC 3.23 L Hgb 8.8 L Hct 28.0 L MCV MCH 27 L MCHC RDW 21.3 H Plt Count Eos % (Auto) Eos # (Auto) Seg Neuts % (Manual) Lymphocytes % (Manual) Seg Neutrophils # Seg Neutrophils # Man Lymphocytes # (Manual) Monocytes # (Manual) PT INR APTT D-Dimer ABG pH ABG pO2 ABG HCO3 ABG O2 Saturation ABG Base Excess ABG Hemoglobin Oxyhemoglobin Sodium 136 L Potassium Chloride Carbon Dioxide 20 L BUN 32 H Creatinine Glucose 109 H POC Glucose 115 H Lactic Acid Calcium 7.7 L Phosphorus Magnesium AST ALT Alkaline Phosphatase Lactate Dehydrogenase Troponin T C-Reactive Protein NT-Pro-B Natriuret Pep Total Protein Albumin LDL Cholesterol Direct Vitamin B12 Urine WBC (Auto) Fluid Glucose Fluid Total Protein Vancomycin Trough Crossmatch 11/23/21 11/24/21 11/24/21 11:40 00:03 04:13 WBC RBC 3.18 L Hgb 8.5 L Hct 27.5 L MCV MCH 27 L MCHC RDW 21.6 H Plt Count Eos % (Auto) Eos # (Auto) Seg Neuts % (Manual) Lymphocytes % (Manual) Seg Neutrophils # Seg Neutrophils # Man Lymphocytes # (Manual) Monocytes # (Manual) PT INR APTT D-Dimer ABG pH ABG pO2 ABG HCO3 ABG O2 Saturation ABG Base Excess ABG Hemoglobin Oxyhemoglobin Sodium Potassium Chloride Carbon Dioxide BUN Creatinine Glucose POC Glucose 117 H 111 H Lactic Acid Calcium Phosphorus Magnesium AST ALT Alkaline Phosphatase Lactate Dehydrogenase Troponin T C-Reactive Protein NT-Pro-B Natriuret Pep Total Protein Albumin LDL Cholesterol Direct Vitamin B12 Urine WBC (Auto) Fluid Glucose Fluid Total Protein Vancomycin Trough Crossmatch 11/24/21 11/24/21 11/24/21 04:13 05:30 11:10 WBC RBC Hgb Hct MCV MCH MCHC RDW Plt Count Eos % (Auto) Eos # (Auto) Seg Neuts % (Manual) Lymphocytes % (Manual) Seg Neutrophils # Seg Neutrophils # Man Lymphocytes # (Manual) Monocytes # (Manual) PT INR APTT D-Dimer ABG pH ABG pO2 ABG HCO3 ABG O2 Saturation ABG Base Excess ABG Hemoglobin Oxyhemoglobin Sodium Potassium Chloride Carbon Dioxide BUN 31 H Creatinine Glucose 101 H POC Glucose 115 H 107 H Lactic Acid Calcium 7.7 L Phosphorus Magnesium AST ALT Alkaline Phosphatase Lactate Dehydrogenase Troponin T C-Reactive Protein NT-Pro-B Natriuret Pep Total Protein Albumin LDL Cholesterol Direct Vitamin B12 Urine WBC (Auto) Fluid Glucose Fluid Total Protein Vancomycin Trough Crossmatch 11/24/21 11/24/21 11/25/21 16:34 17:57 05:12 WBC RBC 3.11 L Hgb 8.2 L Hct 26.6 L MCV MCH 26 L MCHC RDW 21.3 H Plt Count Eos % (Auto) Eos # (Auto) Seg Neuts % (Manual) Lymphocytes % (Manual) Seg Neutrophils # Seg Neutrophils # Man Lymphocytes # (Manual) Monocytes # (Manual) PT INR APTT D-Dimer ABG pH ABG pO2 ABG HCO3 ABG O2 Saturation ABG Base Excess ABG Hemoglobin Oxyhemoglobin Sodium Potassium Chloride Carbon Dioxide BUN Creatinine Glucose POC Glucose 115 H 110 H Lactic Acid Calcium Phosphorus Magnesium AST ALT Alkaline Phosphatase Lactate Dehydrogenase Troponin T C-Reactive Protein NT-Pro-B Natriuret Pep Total Protein Albumin LDL Cholesterol Direct Vitamin B12 Urine WBC (Auto) Fluid Glucose Fluid Total Protein Vancomycin Trough Crossmatch 11/25/21 11/25/21 11/26/21 05:12 11:20 05:00 WBC RBC 3.30 L Hgb 8.8 L Hct 28.2 L MCV MCH 27 L MCHC RDW 20.7 H Plt Count Eos % (Auto) Eos # (Auto) Seg Neuts % (Manual) Lymphocytes % (Manual) Seg Neutrophils # Seg Neutrophils # Man Lymphocytes # (Manual) Monocytes # (Manual) PT INR APTT D-Dimer ABG pH ABG pO2 ABG HCO3 ABG O2 Saturation ABG Base Excess ABG Hemoglobin Oxyhemoglobin Sodium Potassium Chloride Carbon Dioxide BUN 32 H Creatinine Glucose 118 H POC Glucose 118 H Lactic Acid Calcium 8.2 L Phosphorus Magnesium AST ALT Alkaline Phosphatase Lactate Dehydrogenase Troponin T C-Reactive Protein NT-Pro-B Natriuret Pep Total Protein Albumin LDL Cholesterol Direct Vitamin B12 Urine WBC (Auto) Fluid Glucose Fluid Total Protein Vancomycin Trough Crossmatch 11/26/21 11/26/21 11/26/21 05:00 05:00 05:44 WBC RBC Hgb Hct MCV MCH MCHC RDW Plt Count Eos % (Auto) Eos # (Auto) Seg Neuts % (Manual) Lymphocytes % (Manual) Seg Neutrophils # Seg Neutrophils # Man Lymphocytes # (Manual) Monocytes # (Manual) PT 16.9 H INR 1.24 H APTT D-Dimer ABG pH ABG pO2 ABG HCO3 ABG O2 Saturation ABG Base Excess ABG Hemoglobin Oxyhemoglobin Sodium Potassium Chloride Carbon Dioxide BUN 31 H Creatinine Glucose 104 H POC Glucose 110 H Lactic Acid Calcium 7.9 L Phosphorus Magnesium AST ALT Alkaline Phosphatase Lactate Dehydrogenase Troponin T C-Reactive Protein NT-Pro-B Natriuret Pep Total Protein Albumin LDL Cholesterol Direct Vitamin B12 Urine WBC (Auto) Fluid Glucose Fluid Total Protein Vancomycin Trough Crossmatch 11/26/21 11/27/21 11/27/21 23:55 07:40 07:40 WBC RBC 3.18 L Hgb 8.5 L Hct 27.0 L MCV MCH 27 L MCHC RDW 21.2 H Plt Count Eos % (Auto) Eos # (Auto) Seg Neuts % (Manual) Lymphocytes % (Manual) Seg Neutrophils # Seg Neutrophils # Man Lymphocytes # (Manual) Monocytes # (Manual) PT INR APTT D-Dimer ABG pH ABG pO2 ABG HCO3 ABG O2 Saturation ABG Base Excess ABG Hemoglobin Oxyhemoglobin Sodium Potassium Chloride Carbon Dioxide BUN 27 H Creatinine Glucose 112 H POC Glucose 63 L Lactic Acid Calcium 7.6 L Phosphorus Magnesium AST ALT Alkaline Phosphatase Lactate Dehydrogenase Troponin T C-Reactive Protein NT-Pro-B Natriuret Pep Total Protein Albumin LDL Cholesterol Direct Vitamin B12 Urine WBC (Auto) Fluid Glucose Fluid Total Protein Vancomycin Trough Crossmatch 11/27/21 11/27/21 11/27/21 12:04 13:40 13:40 WBC RBC 3.31 L Hgb 8.7 L Hct 28.0 L MCV MCH 26 L MCHC RDW 20.7 H Plt Count Eos % (Auto) Eos # (Auto) Seg Neuts % (Manual) Lymphocytes % (Manual) Seg Neutrophils # Seg Neutrophils # Man Lymphocytes # (Manual) Monocytes # (Manual) PT INR APTT D-Dimer ABG pH ABG pO2 ABG HCO3 ABG O2 Saturation ABG Base Excess ABG Hemoglobin Oxyhemoglobin Sodium 136 L Potassium Chloride Carbon Dioxide BUN 25 H Creatinine Glucose 127 H POC Glucose 109 H Lactic Acid Calcium 7.6 L Phosphorus Magnesium 1.40 L AST ALT Alkaline Phosphatase Lactate Dehydrogenase Troponin T C-Reactive Protein NT-Pro-B Natriuret Pep Total Protein Albumin LDL Cholesterol Direct Vitamin B12 Urine WBC (Auto) Fluid Glucose Fluid Total Protein Vancomycin Trough Crossmatch 11/27/21 11/27/21 11/28/21 17:44 23:33 12:20 WBC RBC Hgb Hct MCV MCH MCHC RDW Plt Count Eos % (Auto) Eos # (Auto) Seg Neuts % (Manual) Lymphocytes % (Manual) Seg Neutrophils # Seg Neutrophils # Man Lymphocytes # (Manual) Monocytes # (Manual) PT INR APTT D-Dimer ABG pH ABG pO2 ABG HCO3 ABG O2 Saturation ABG Base Excess ABG Hemoglobin Oxyhemoglobin Sodium Potassium Chloride Carbon Dioxide BUN Creatinine Glucose POC Glucose 107 H 108 H 114 H Lactic Acid Calcium Phosphorus Magnesium AST ALT Alkaline Phosphatase Lactate Dehydrogenase Troponin T C-Reactive Protein NT-Pro-B Natriuret Pep Total Protein Albumin LDL Cholesterol Direct Vitamin B12 Urine WBC (Auto) Fluid Glucose Fluid Total Protein Vancomycin Trough Crossmatch 02/10/0811/29/21 11/29/21 00:09 03:20 03:20 WBC RBC 3.05 L Hgb 8.2 L Hct 25.8 L MCV MCH 27 L MCHC RDW 20.9 H Plt Count Eos % (Auto) Eos # (Auto) Seg Neuts % (Manual) Lymphocytes % (Manual) Seg Neutrophils # Seg Neutrophils # Man Lymphocytes # (Manual) Monocytes # (Manual) PT INR APTT D-Dimer ABG pH ABG pO2 ABG HCO3 ABG O2 Saturation ABG Base Excess ABG Hemoglobin Oxyhemoglobin Sodium 133 L Potassium Chloride Carbon Dioxide BUN 24 H Creatinine Glucose 137 H POC Glucose 134 H Lactic Acid Calcium 7.4 L Phosphorus Magnesium AST ALT Alkaline Phosphatase Lactate Dehydrogenase Troponin T C-Reactive Protein NT-Pro-B Natriuret Pep Total Protein Albumin LDL Cholesterol Direct Vitamin B12 Urine WBC (Auto) Fluid Glucose Fluid Total Protein Vancomycin Trough Crossmatch 11/29/21 11/29/21 11/29/21 05:38 11:39 17:11 WBC RBC Hgb Hct MCV MCH MCHC RDW Plt Count Eos % (Auto) Eos # (Auto) Seg Neuts % (Manual) Lymphocytes % (Manual) Seg Neutrophils # Seg Neutrophils # Man Lymphocytes # (Manual) Monocytes # (Manual) PT INR APTT D-Dimer ABG pH ABG pO2 ABG HCO3 ABG O2 Saturation ABG Base Excess ABG Hemoglobin Oxyhemoglobin Sodium Potassium Chloride Carbon Dioxide BUN Creatinine Glucose POC Glucose 117 H 143 H 124 H Lactic Acid Calcium Phosphorus Magnesium AST ALT Alkaline Phosphatase Lactate Dehydrogenase Troponin T C-Reactive Protein NT-Pro-B Natriuret Pep Total Protein Albumin LDL Cholesterol Direct Vitamin B12 Urine WBC (Auto) Fluid Glucose Fluid Total Protein Vancomycin Trough Crossmatch 11/29/21 11/30/21 11/30/21 20:15 05:40 05:40 WBC 12.6 H RBC 3.41 L Hgb 9.1 L Hct 28.9 L MCV MCH 27 L MCHC RDW 20.4 H Plt Count Eos % (Auto) Eos # (Auto) Seg Neuts % (Manual) Lymphocytes % (Manual) Seg Neutrophils # Seg Neutrophils # Man Lymphocytes # (Manual) Monocytes # (Manual) PT INR APTT D-Dimer ABG pH ABG pO2 ABG HCO3 ABG O2 Saturation ABG Base Excess ABG Hemoglobin Oxyhemoglobin Sodium Potassium Chloride Carbon Dioxide BUN 24 H Creatinine Glucose 131 H POC Glucose Lactic Acid Calcium 7.6 L Phosphorus Magnesium AST ALT Alkaline Phosphatase Lactate Dehydrogenase Troponin T 0.045 H C-Reactive Protein NT-Pro-B Natriuret Pep Total Protein Albumin LDL Cholesterol Direct 25 L Vitamin B12 Urine WBC (Auto) Fluid Glucose Fluid Total Protein Vancomycin Trough Crossmatch 11/30/21 11/30/21 12/01/21 11:29 16:51 05:00 WBC RBC 2.97 L Hgb 8.0 L Hct 25.0 L MCV MCH 27 L MCHC RDW 20.8 H Plt Count Eos % (Auto) Eos # (Auto) Seg Neuts % (Manual) Lymphocytes % (Manual) Seg Neutrophils # Seg Neutrophils # Man Lymphocytes # (Manual) Monocytes # (Manual) PT INR APTT D-Dimer ABG pH ABG pO2 ABG HCO3 ABG O2 Saturation ABG Base Excess ABG Hemoglobin Oxyhemoglobin Sodium Potassium Chloride Carbon Dioxide BUN Creatinine Glucose POC Glucose 123 H 114 H Lactic Acid Calcium Phosphorus Magnesium AST ALT Alkaline Phosphatase Lactate Dehydrogenase Troponin T C-Reactive Protein NT-Pro-B Natriuret Pep Total Protein Albumin LDL Cholesterol Direct Vitamin B12 Urine WBC (Auto) Fluid Glucose Fluid Total Protein Vancomycin Trough Crossmatch 12/01/21 12/01/21 12/01/21 05:00 05:25 11:54 WBC RBC Hgb Hct MCV MCH MCHC RDW Plt Count Eos % (Auto) Eos # (Auto) Seg Neuts % (Manual) Lymphocytes % (Manual) Seg Neutrophils # Seg Neutrophils # Man Lymphocytes # (Manual) Monocytes # (Manual) PT INR APTT D-Dimer ABG pH ABG pO2 ABG HCO3 ABG O2 Saturation ABG Base Excess ABG Hemoglobin Oxyhemoglobin Sodium 136 L Potassium Chloride Carbon Dioxide BUN 24 H Creatinine Glucose 117 H POC Glucose 108 H 107 H Lactic Acid Calcium 7.5 L Phosphorus Magnesium 1.60 L AST ALT Alkaline Phosphatase Lactate Dehydrogenase Troponin T C-Reactive Protein NT-Pro-B Natriuret Pep Total Protein Albumin LDL Cholesterol Direct Vitamin B12 Urine WBC (Auto) Fluid Glucose Fluid Total Protein Vancomycin Trough Crossmatch 12/01/21 12/02/21 12/02/21 17:40 00:07 04:20 WBC RBC 2.92 L Hgb 7.7 L Hct 24.3 L MCV MCH 26 L MCHC RDW 20.5 H Plt Count Eos % (Auto) Eos # (Auto) Seg Neuts % (Manual) Lymphocytes % (Manual) Seg Neutrophils # Seg Neutrophils # Man Lymphocytes # (Manual) Monocytes # (Manual) PT INR APTT D-Dimer ABG pH ABG pO2 ABG HCO3 ABG O2 Saturation ABG Base Excess ABG Hemoglobin Oxyhemoglobin Sodium Potassium Chloride Carbon Dioxide BUN Creatinine Glucose POC Glucose 123 H 110 H Lactic Acid Calcium Phosphorus Magnesium AST ALT Alkaline Phosphatase Lactate Dehydrogenase Troponin T C-Reactive Protein NT-Pro-B Natriuret Pep Total Protein Albumin LDL Cholesterol Direct Vitamin B12 Urine WBC (Auto) Fluid Glucose Fluid Total Protein Vancomycin Trough Crossmatch 12/02/21 12/02/21 12/02/21 04:20 11:17 18:20 WBC RBC Hgb Hct MCV MCH MCHC RDW Plt Count Eos % (Auto) Eos # (Auto) Seg Neuts % (Manual) Lymphocytes % (Manual) Seg Neutrophils # Seg Neutrophils # Man Lymphocytes # (Manual) Monocytes # (Manual) PT INR APTT D-Dimer ABG pH ABG pO2 ABG HCO3 ABG O2 Saturation ABG Base Excess ABG Hemoglobin Oxyhemoglobin Sodium 135 L Potassium Chloride Carbon Dioxide BUN 26 H Creatinine Glucose 121 H POC Glucose 117 H 113 H Lactic Acid Calcium 7.4 L Phosphorus Magnesium AST ALT Alkaline Phosphatase Lactate Dehydrogenase Troponin T C-Reactive Protein NT-Pro-B Natriuret Pep Total Protein Albumin LDL Cholesterol Direct Vitamin B12 Urine WBC (Auto) Fluid Glucose Fluid Total Protein Vancomycin Trough Crossmatch 12/03/21 12/03/21 12/03/21 00:12 04:00 04:00 WBC RBC 2.99 L Hgb 7.8 L Hct 24.6 L MCV MCH 26 L MCHC RDW 20.2 H Plt Count Eos % (Auto) Eos # (Auto) Seg Neuts % (Manual) Lymphocytes % (Manual) Seg Neutrophils # Seg Neutrophils # Man Lymphocytes # (Manual) Monocytes # (Manual) PT INR APTT D-Dimer ABG pH ABG pO2 ABG HCO3 ABG O2 Saturation ABG Base Excess ABG Hemoglobin Oxyhemoglobin Sodium 136 L Potassium Chloride Carbon Dioxide BUN 27 H Creatinine Glucose 133 H POC Glucose 121 H Lactic Acid Calcium 7.5 L Phosphorus Magnesium AST ALT Alkaline Phosphatase Lactate Dehydrogenase Troponin T C-Reactive Protein NT-Pro-B Natriuret Pep Total Protein Albumin LDL Cholesterol Direct Vitamin B12 Urine WBC (Auto) Fluid Glucose Fluid Total Protein Vancomycin Trough Crossmatch 12/03/21 12/03/2122 06:30 11:13 16:00 WBC RBC Hgb Hct MCV MCH MCHC RDW Plt Count Eos % (Auto) Eos # (Auto) Seg Neuts % (Manual) Lymphocytes % (Manual) Seg Neutrophils # Seg Neutrophils # Man Lymphocytes # (Manual) Monocytes # (Manual) PT INR APTT D-Dimer ABG pH ABG pO2 ABG HCO3 ABG O2 Saturation ABG Base Excess ABG Hemoglobin Oxyhemoglobin Sodium Potassium Chloride Carbon Dioxide BUN Creatinine Glucose POC Glucose 129 H 125 H 125 H Lactic Acid Calcium Phosphorus Magnesium AST ALT Alkaline Phosphatase Lactate Dehydrogenase Troponin T C-Reactive Protein NT-Pro-B Natriuret Pep Total Protein Albumin LDL Cholesterol Direct Vitamin B12 Urine WBC (Auto) Fluid Glucose Fluid Total Protein Vancomycin Trough Crossmatch 12/03/21 12/04/21 12/04/21 23:32 04:00 05:36 WBC RBC Hgb Hct MCV MCH MCHC RDW Plt Count Eos % (Auto) Eos # (Auto) Seg Neuts % (Manual) Lymphocytes % (Manual) Seg Neutrophils # Seg Neutrophils # Man Lymphocytes # (Manual) Monocytes # (Manual) PT INR APTT D-Dimer ABG pH ABG pO2 ABG HCO3 ABG O2 Saturation ABG Base Excess ABG Hemoglobin Oxyhemoglobin Sodium Potassium 3.5 L Chloride Carbon Dioxide BUN 26 H Creatinine 0.5 L Glucose 151 H POC Glucose 133 H 142 H Lactic Acid Calcium 8.3 L Phosphorus Magnesium AST ALT Alkaline Phosphatase Lactate Dehydrogenase Troponin T C-Reactive Protein NT-Pro-B Natriuret Pep Total Protein Albumin LDL Cholesterol Direct Vitamin B12 Urine WBC (Auto) Fluid Glucose Fluid Total Protein Vancomycin Trough Crossmatch 12/04/21 12/04/21 12/05/21 11:24 15:58 04:36 WBC RBC Hgb Hct MCV MCH MCHC RDW Plt Count Eos % (Auto) Eos # (Auto) Seg Neuts % (Manual) Lymphocytes % (Manual) Seg Neutrophils # Seg Neutrophils # Man Lymphocytes # (Manual) Monocytes # (Manual) PT INR APTT D-Dimer ABG pH ABG pO2 ABG HCO3 ABG O2 Saturation ABG Base Excess ABG Hemoglobin Oxyhemoglobin Sodium Potassium Chloride Carbon Dioxide BUN 21 H Creatinine 0.5 L Glucose 119 H POC Glucose 130 H 111 H Lactic Acid Calcium 8.3 L Phosphorus Magnesium AST ALT Alkaline Phosphatase Lactate Dehydrogenase Troponin T C-Reactive Protein NT-Pro-B Natriuret Pep Total Protein Albumin LDL Cholesterol Direct Vitamin B12 Urine WBC (Auto) Fluid Glucose Fluid Total Protein Vancomycin Trough Crossmatch 12/05/21 12/05/21 12/05/21 05:15 10:40 11:12 WBC RBC 2.98 L Hgb 8.1 L Hct 24.6 L MCV MCH 27 L MCHC RDW 20.8 H Plt Count Eos % (Auto) Eos # (Auto) Seg Neuts % (Manual) Lymphocytes % (Manual) Seg Neutrophils # Seg Neutrophils # Man Lymphocytes # (Manual) Monocytes # (Manual) PT INR APTT D-Dimer ABG pH ABG pO2 ABG HCO3 ABG O2 Saturation ABG Base Excess ABG Hemoglobin Oxyhemoglobin Sodium Potassium Chloride Carbon Dioxide BUN Creatinine Glucose POC Glucose 107 H 110 H Lactic Acid Calcium Phosphorus Magnesium AST ALT Alkaline Phosphatase Lactate Dehydrogenase Troponin T C-Reactive Protein NT-Pro-B Natriuret Pep Total Protein Albumin LDL Cholesterol Direct Vitamin B12 Urine WBC (Auto) Fluid Glucose Fluid Total Protein Vancomycin Trough Crossmatch 12/05/21 12/06/21 12/06/21 23:39 04:25 04:25 WBC RBC 2.95 L Hgb 7.9 L Hct 24.7 L MCV MCH 27 L MCHC RDW 20.9 H Plt Count Eos % (Auto) Eos # (Auto) Seg Neuts % (Manual) Lymphocytes % (Manual) Seg Neutrophils # Seg Neutrophils # Man Lymphocytes # (Manual) Monocytes # (Manual) PT INR APTT D-Dimer ABG pH ABG pO2 ABG HCO3 ABG O2 Saturation ABG Base Excess ABG Hemoglobin Oxyhemoglobin Sodium Potassium Chloride Carbon Dioxide BUN 22 H Creatinine 0.5 L Glucose 136 H POC Glucose 118 H Lactic Acid Calcium 8.2 L Phosphorus Magnesium AST ALT Alkaline Phosphatase Lactate Dehydrogenase Troponin T C-Reactive Protein NT-Pro-B Natriuret Pep Total Protein Albumin LDL Cholesterol Direct Vitamin B12 Urine WBC (Auto) Fluid Glucose Fluid Total Protein Vancomycin Trough Crossmatch 12/06/21 12/06/21 12/07/21 05:28 11:27 04:00 WBC RBC Hgb 7.2 L Hct 21.8 L MCV MCH MCHC RDW Plt Count Eos % (Auto) Eos # (Auto) Seg Neuts % (Manual) Lymphocytes % (Manual) Seg Neutrophils # Seg Neutrophils # Man Lymphocytes # (Manual) Monocytes # (Manual) PT INR APTT D-Dimer ABG pH ABG pO2 ABG HCO3 ABG O2 Saturation ABG Base Excess ABG Hemoglobin Oxyhemoglobin Sodium Potassium Chloride Carbon Dioxide BUN Creatinine Glucose POC Glucose 142 H 126 H Lactic Acid Calcium Phosphorus Magnesium AST ALT Alkaline Phosphatase Lactate Dehydrogenase Troponin T C-Reactive Protein NT-Pro-B Natriuret Pep Total Protein Albumin LDL Cholesterol Direct Vitamin B12 Urine WBC (Auto) Fluid Glucose Fluid Total Protein Vancomycin Trough Crossmatch 12/07/21 12/07/21 12/07/21 04:00 05:30 11:12 WBC RBC Hgb Hct MCV MCH MCHC RDW Plt Count Eos % (Auto) Eos # (Auto) Seg Neuts % (Manual) Lymphocytes % (Manual) Seg Neutrophils # Seg Neutrophils # Man Lymphocytes # (Manual) Monocytes # (Manual) PT INR APTT D-Dimer ABG pH ABG pO2 ABG HCO3 ABG O2 Saturation ABG Base Excess ABG Hemoglobin Oxyhemoglobin Sodium Potassium Chloride Carbon Dioxide BUN 22 H Creatinine Glucose 119 H POC Glucose 121 H 124 H Lactic Acid Calcium 8.0 L Phosphorus Magnesium AST ALT Alkaline Phosphatase Lactate Dehydrogenase Troponin T C-Reactive Protein NT-Pro-B Natriuret Pep Total Protein Albumin LDL Cholesterol Direct Vitamin B12 Urine WBC (Auto) Fluid Glucose Fluid Total Protein Vancomycin Trough Crossmatch 12/08/21 12/08/21 12/08/21 04:00 04:00 05:39 WBC RBC 2.81 L Hgb 7.7 L Hct 23.5 L MCV MCH MCHC RDW 21.2 H Plt Count Eos % (Auto) Eos # (Auto) Seg Neuts % (Manual) Lymphocytes % (Manual) Seg Neutrophils # Seg Neutrophils # Man Lymphocytes # (Manual) Monocytes # (Manual) PT INR APTT D-Dimer ABG pH ABG pO2 ABG HCO3 ABG O2 Saturation ABG Base Excess ABG Hemoglobin Oxyhemoglobin Sodium 135 L Potassium Chloride Carbon Dioxide BUN 23 H Creatinine Glucose 109 H POC Glucose 112 H Lactic Acid Calcium Phosphorus Magnesium AST ALT Alkaline Phosphatase Lactate Dehydrogenase Troponin T C-Reactive Protein NT-Pro-B Natriuret Pep Total Protein Albumin LDL Cholesterol Direct Vitamin B12 Urine WBC (Auto) Fluid Glucose Fluid Total Protein Vancomycin Trough Crossmatch 12/08/21 12/09/21 12/09/21 11:03 04:20 04:20 WBC RBC 2.67 L Hgb 7.6 L Hct 22.1 L MCV MCH MCHC RDW 20.8 H Plt Count Eos % (Auto) Eos # (Auto) Seg Neuts % (Manual) Lymphocytes % (Manual) Seg Neutrophils # Seg Neutrophils # Man Lymphocytes # (Manual) Monocytes # (Manual) PT INR APTT D-Dimer ABG pH ABG pO2 ABG HCO3 ABG O2 Saturation ABG Base Excess ABG Hemoglobin Oxyhemoglobin Sodium 135 L Potassium Chloride 97.8 L Carbon Dioxide BUN 26 H Creatinine Glucose 119 H POC Glucose 108 H Lactic Acid Calcium 7.7 L Phosphorus Magnesium AST ALT Alkaline Phosphatase Lactate Dehydrogenase Troponin T C-Reactive Protein NT-Pro-B Natriuret Pep Total Protein Albumin LDL Cholesterol Direct Vitamin B12 Urine WBC (Auto) Fluid Glucose Fluid Total Protein Vancomycin Trough Crossmatch 12/09/21 12/10/21 12/10/21 11:26 04:33 11:12 WBC RBC Hgb Hct MCV MCH MCHC RDW Plt Count Eos % (Auto) Eos # (Auto) Seg Neuts % (Manual) Lymphocytes % (Manual) Seg Neutrophils # Seg Neutrophils # Man Lymphocytes # (Manual) Monocytes # (Manual) PT INR APTT D-Dimer ABG pH ABG pO2 ABG HCO3 ABG O2 Saturation ABG Base Excess ABG Hemoglobin Oxyhemoglobin Sodium 136 L Potassium Chloride Carbon Dioxide BUN 27 H Creatinine Glucose 117 H POC Glucose 110 H 117 H Lactic Acid Calcium 8.2 L Phosphorus Magnesium AST ALT Alkaline Phosphatase Lactate Dehydrogenase Troponin T C-Reactive Protein NT-Pro-B Natriuret Pep Total Protein Albumin LDL Cholesterol Direct Vitamin B12 Urine WBC (Auto) Fluid Glucose Fluid Total Protein Vancomycin Trough Crossmatch 12/10/21 12/10/21 12/11/21 16:02 23:31 04:35 WBC RBC 2.57 L Hgb 7.0 L Hct 21.4 L MCV MCH 27 L MCHC RDW 21.1 H Plt Count Eos % (Auto) Eos # (Auto) Seg Neuts % (Manual) Lymphocytes % (Manual) Seg Neutrophils # Seg Neutrophils # Man Lymphocytes # (Manual) Monocytes # (Manual) PT INR APTT D-Dimer ABG pH ABG pO2 ABG HCO3 ABG O2 Saturation ABG Base Excess ABG Hemoglobin Oxyhemoglobin Sodium Potassium Chloride Carbon Dioxide BUN Creatinine Glucose POC Glucose 137 H 111 H Lactic Acid Calcium Phosphorus Magnesium AST ALT Alkaline Phosphatase Lactate Dehydrogenase Troponin T C-Reactive Protein NT-Pro-B Natriuret Pep Total Protein Albumin LDL Cholesterol Direct Vitamin B12 Urine WBC (Auto) Fluid Glucose Fluid Total Protein Vancomycin Trough Crossmatch 12/11/21 12/11/21 12/11/21 04:35 12:46 16:07 WBC RBC Hgb Hct MCV MCH MCHC RDW Plt Count Eos % (Auto) Eos # (Auto) Seg Neuts % (Manual) Lymphocytes % (Manual) Seg Neutrophils # Seg Neutrophils # Man Lymphocytes # (Manual) Monocytes # (Manual) PT INR APTT D-Dimer ABG pH ABG pO2 ABG HCO3 ABG O2 Saturation ABG Base Excess ABG Hemoglobin Oxyhemoglobin Sodium 136 L Potassium Chloride Carbon Dioxide BUN 27 H Creatinine Glucose 112 H POC Glucose 115 H 111 H Lactic Acid Calcium 7.6 L Phosphorus Magnesium AST ALT Alkaline Phosphatase Lactate Dehydrogenase Troponin T C-Reactive Protein NT-Pro-B Natriuret Pep Total Protein Albumin LDL Cholesterol Direct Vitamin B12 Urine WBC (Auto) Fluid Glucose Fluid Total Protein Vancomycin Trough Crossmatch 12/11/21 12/12/21 12/12/21 23:42 04:30 04:30 WBC RBC 2.60 L Hgb 7.1 L Hct 21.5 L MCV MCH 27 L MCHC RDW 20.3 H Plt Count Eos % (Auto) Eos # (Auto) Seg Neuts % (Manual) Lymphocytes % (Manual) Seg Neutrophils # Seg Neutrophils # Man Lymphocytes # (Manual) Monocytes # (Manual) PT INR APTT D-Dimer ABG pH ABG pO2 ABG HCO3 ABG O2 Saturation ABG Base Excess ABG Hemoglobin Oxyhemoglobin Sodium 135 L Potassium Chloride 97.9 L Carbon Dioxide BUN 26 H Creatinine 0.5 L Glucose 138 H POC Glucose 115 H Lactic Acid Calcium 8.2 L Phosphorus Magnesium AST ALT Alkaline Phosphatase Lactate Dehydrogenase Troponin T C-Reactive Protein NT-Pro-B Natriuret Pep Total Protein Albumin LDL Cholesterol Direct Vitamin B12 Urine WBC (Auto) Fluid Glucose Fluid Total Protein Vancomycin Trough Crossmatch 12/12/21 12/12/21 12/12/21 04:30 05:10 11:51 WBC RBC Hgb Hct MCV MCH MCHC RDW Plt Count Eos % (Auto) Eos # (Auto) Seg Neuts % (Manual) Lymphocytes % (Manual) Seg Neutrophils # Seg Neutrophils # Man Lymphocytes # (Manual) Monocytes # (Manual) PT INR APTT D-Dimer ABG pH ABG pO2 ABG HCO3 ABG O2 Saturation ABG Base Excess ABG Hemoglobin Oxyhemoglobin Sodium Potassium Chloride Carbon Dioxide BUN Creatinine Glucose POC Glucose 119 H 119 H Lactic Acid Calcium Phosphorus Magnesium AST ALT Alkaline Phosphatase Lactate Dehydrogenase Troponin T C-Reactive Protein NT-Pro-B Natriuret Pep Total Protein Albumin LDL Cholesterol Direct Vitamin B12 Urine WBC (Auto) Fluid Glucose Fluid Total Protein Vancomycin Trough Crossmatch See Detail 12/13/21 12/13/21 12/13/21 00:52 04:00 04:00 WBC RBC 2.73 L Hgb 7.4 L Hct 22.8 L MCV MCH 27 L MCHC RDW 20.5 H Plt Count Eos % (Auto) Eos # (Auto) Seg Neuts % (Manual) Lymphocytes % (Manual) Seg Neutrophils # Seg Neutrophils # Man Lymphocytes # (Manual) Monocytes # (Manual) PT INR APTT D-Dimer ABG pH ABG pO2 ABG HCO3 ABG O2 Saturation ABG Base Excess ABG Hemoglobin Oxyhemoglobin Sodium 134 L Potassium Chloride 96.7 L Carbon Dioxide BUN 23 H Creatinine 0.5 L Glucose 131 H POC Glucose 131 H Lactic Acid Calcium 8.1 L Phosphorus Magnesium AST ALT Alkaline Phosphatase Lactate Dehydrogenase Troponin T C-Reactive Protein NT-Pro-B Natriuret Pep Total Protein Albumin LDL Cholesterol Direct Vitamin B12 Urine WBC (Auto) Fluid Glucose Fluid Total Protein Vancomycin Trough Crossmatch 12/13/21 12/13/21 12/13/21 05:23 12:11 17:18 WBC RBC Hgb Hct MCV MCH MCHC RDW Plt Count Eos % (Auto) Eos # (Auto) Seg Neuts % (Manual) Lymphocytes % (Manual) Seg Neutrophils # Seg Neutrophils # Man Lymphocytes # (Manual) Monocytes # (Manual) PT INR APTT D-Dimer ABG pH ABG pO2 ABG HCO3 ABG O2 Saturation ABG Base Excess ABG Hemoglobin Oxyhemoglobin Sodium Potassium Chloride Carbon Dioxide BUN Creatinine Glucose POC Glucose 121 H 143 H 148 H Lactic Acid Calcium Phosphorus Magnesium AST ALT Alkaline Phosphatase Lactate Dehydrogenase Troponin T C-Reactive Protein NT-Pro-B Natriuret Pep Total Protein Albumin LDL Cholesterol Direct Vitamin B12 Urine WBC (Auto) Fluid Glucose Fluid Total Protein Vancomycin Trough Crossmatch 12/14/21 12/14/21 12/14/21 00:54 04:20 04:20 WBC RBC 2.39 L Hgb 6.5 L Hct 20.3 L MCV MCH 27 L MCHC RDW 20.3 H Plt Count Eos % (Auto) Eos # (Auto) Seg Neuts % (Manual) Lymphocytes % (Manual) Seg Neutrophils # Seg Neutrophils # Man Lymphocytes # (Manual) Monocytes # (Manual) PT INR APTT D-Dimer ABG pH ABG pO2 ABG HCO3 ABG O2 Saturation ABG Base Excess ABG Hemoglobin Oxyhemoglobin Sodium 130 L Potassium Chloride 93.5 L Carbon Dioxide BUN 25 H Creatinine Glucose 123 H POC Glucose 123 H Lactic Acid Calcium 8.0 L Phosphorus Magnesium AST ALT Alkaline Phosphatase Lactate Dehydrogenase Troponin T C-Reactive Protein NT-Pro-B Natriuret Pep Total Protein Albumin LDL Cholesterol Direct Vitamin B12 Urine WBC (Auto) Fluid Glucose Fluid Total Protein Vancomycin Trough Crossmatch 12/14/21 12/14/21 12/14/21 05:06 08:17 10:30 WBC RBC Hgb Hct MCV MCH MCHC RDW Plt Count Eos % (Auto) Eos # (Auto) Seg Neuts % (Manual) Lymphocytes % (Manual) Seg Neutrophils # Seg Neutrophils # Man Lymphocytes # (Manual) Monocytes # (Manual) PT INR APTT D-Dimer ABG pH ABG pO2 ABG HCO3 ABG O2 Saturation ABG Base Excess ABG Hemoglobin Oxyhemoglobin Sodium Potassium Chloride Carbon Dioxide BUN Creatinine Glucose POC Glucose 131 H 119 H Lactic Acid Calcium Phosphorus Magnesium AST ALT Alkaline Phosphatase Lactate Dehydrogenase Troponin T C-Reactive Protein NT-Pro-B Natriuret Pep Total Protein Albumin LDL Cholesterol Direct Vitamin B12 Urine WBC (Auto) Fluid Glucose Fluid Total Protein Vancomycin Trough Crossmatch See Detail 12/14/21 12/14/21 12/14/21 12:15 16:37 23:27 WBC RBC Hgb Hct MCV MCH MCHC RDW Plt Count Eos % (Auto) Eos # (Auto) Seg Neuts % (Manual) Lymphocytes % (Manual) Seg Neutrophils # Seg Neutrophils # Man Lymphocytes # (Manual) Monocytes # (Manual) PT INR APTT D-Dimer ABG pH ABG pO2 ABG HCO3 ABG O2 Saturation ABG Base Excess ABG Hemoglobin Oxyhemoglobin Sodium Potassium Chloride Carbon Dioxide BUN Creatinine Glucose POC Glucose 147 H 141 H 130 H Lactic Acid Calcium Phosphorus Magnesium AST ALT Alkaline Phosphatase Lactate Dehydrogenase Troponin T C-Reactive Protein NT-Pro-B Natriuret Pep Total Protein Albumin LDL Cholesterol Direct Vitamin B12 Urine WBC (Auto) Fluid Glucose Fluid Total Protein Vancomycin Trough Crossmatch 12/15/21 12/15/21 12/15/21 05:00 07:00 07:00 WBC 12.3 H RBC 3.27 L Hgb 8.8 L Hct 27.5 L D MCV MCH 27 L MCHC RDW 19.0 H Plt Count Eos % (Auto) Eos # (Auto) Seg Neuts % (Manual) Lymphocytes % (Manual) Seg Neutrophils # Seg Neutrophils # Man Lymphocytes # (Manual) Monocytes # (Manual) PT INR APTT D-Dimer ABG pH ABG pO2 ABG HCO3 ABG O2 Saturation ABG Base Excess ABG Hemoglobin Oxyhemoglobin Sodium 134 L Potassium Chloride 95.7 L Carbon Dioxide BUN 28 H Creatinine Glucose 129 H POC Glucose 129 H Lactic Acid Calcium 8.2 L Phosphorus Magnesium AST ALT Alkaline Phosphatase Lactate Dehydrogenase Troponin T C-Reactive Protein NT-Pro-B Natriuret Pep Total Protein Albumin LDL Cholesterol Direct Vitamin B12 Urine WBC (Auto) Fluid Glucose Fluid Total Protein Vancomycin Trough Crossmatch 12/15/21 12/15/21 12/15/21 11:18 16:00 23:39 WBC RBC Hgb Hct MCV MCH MCHC RDW Plt Count Eos % (Auto) Eos # (Auto) Seg Neuts % (Manual) Lymphocytes % (Manual) Seg Neutrophils # Seg Neutrophils # Man Lymphocytes # (Manual) Monocytes # (Manual) PT INR APTT D-Dimer ABG pH ABG pO2 ABG HCO3 ABG O2 Saturation ABG Base Excess ABG Hemoglobin Oxyhemoglobin Sodium Potassium Chloride Carbon Dioxide BUN Creatinine Glucose POC Glucose 139 H 137 H 146 H Lactic Acid Calcium Phosphorus Magnesium AST ALT Alkaline Phosphatase Lactate Dehydrogenase Troponin T C-Reactive Protein NT-Pro-B Natriuret Pep Total Protein Albumin LDL Cholesterol Direct Vitamin B12 Urine WBC (Auto) Fluid Glucose Fluid Total Protein Vancomycin Trough Crossmatch 12/16/21 12/16/21 12/16/21 05:24 10:21 10:21 WBC 15.3 H RBC 3.24 L Hgb 8.9 L Hct 27.7 L MCV MCH MCHC RDW 19.0 H Plt Count Eos % (Auto) Eos # (Auto) Seg Neuts % (Manual) Lymphocytes % (Manual) Seg Neutrophils # Seg Neutrophils # Man Lymphocytes # (Manual) Monocytes # (Manual) PT INR APTT D-Dimer ABG pH ABG pO2 ABG HCO3 ABG O2 Saturation ABG Base Excess ABG Hemoglobin Oxyhemoglobin Sodium 131 L Potassium 3.5 L Chloride 92.7 L Carbon Dioxide BUN 36 H Creatinine Glucose 160 H POC Glucose 121 H Lactic Acid Calcium Phosphorus Magnesium 1.60 L AST ALT Alkaline Phosphatase Lactate Dehydrogenase Troponin T C-Reactive Protein NT-Pro-B Natriuret Pep Total Protein Albumin LDL Cholesterol Direct Vitamin B12 Urine WBC (Auto) Fluid Glucose Fluid Total Protein Vancomycin Trough Crossmatch 12/16/21 12/16/21 12/16/21 11:21 18:28 20:52 WBC RBC Hgb Hct MCV MCH MCHC RDW Plt Count Eos % (Auto) Eos # (Auto) Seg Neuts % (Manual) Lymphocytes % (Manual) Seg Neutrophils # Seg Neutrophils # Man Lymphocytes # (Manual) Monocytes # (Manual) PT INR APTT D-Dimer ABG pH 7.479 H ABG pO2 79.3 L ABG HCO3 27.3 H ABG O2 Saturation ABG Base Excess 3.6 H ABG Hemoglobin 9.1 L Oxyhemoglobin 94.9 L Sodium Potassium Chloride Carbon Dioxide BUN Creatinine Glucose POC Glucose 153 H 132 H Lactic Acid Calcium Phosphorus Magnesium AST ALT Alkaline Phosphatase Lactate Dehydrogenase Troponin T C-Reactive Protein NT-Pro-B Natriuret Pep Total Protein Albumin LDL Cholesterol Direct Vitamin B12 Urine WBC (Auto) Fluid Glucose Fluid Total Protein Vancomycin Trough Crossmatch 12/16/21 12/17/21 12/17/21 23:30 04:25 04:25 WBC 12.3 H RBC 2.16 L Hgb 6.0 L Hct 18.1 L* D MCV MCH MCHC RDW 19.4 H Plt Count Eos % (Auto) Eos # (Auto) Seg Neuts % (Manual) Lymphocytes % (Manual) Seg Neutrophils # Seg Neutrophils # Man Lymphocytes # (Manual) Monocytes # (Manual) PT INR APTT D-Dimer ABG pH ABG pO2 ABG HCO3 ABG O2 Saturation ABG Base Excess ABG Hemoglobin Oxyhemoglobin Sodium 132 L Potassium 3.2 L Chloride 112.0 H Carbon Dioxide BUN 32 H Creatinine Glucose 122 H POC Glucose 137 H Lactic Acid Calcium 6.8 L D Phosphorus Magnesium AST ALT Alkaline Phosphatase Lactate Dehydrogenase Troponin T C-Reactive Protein NT-Pro-B Natriuret Pep Total Protein Albumin LDL Cholesterol Direct Vitamin B12 Urine WBC (Auto) Fluid Glucose Fluid Total Protein Vancomycin Trough Crossmatch 12/17/21 12/17/21 12/17/21 05:30 11:49 14:45 WBC RBC Hgb 9.7 L D Hct MCV MCH MCHC RDW Plt Count Eos % (Auto) Eos # (Auto) Seg Neuts % (Manual) Lymphocytes % (Manual) Seg Neutrophils # Seg Neutrophils # Man Lymphocytes # (Manual) Monocytes # (Manual) PT INR APTT D-Dimer ABG pH ABG pO2 ABG HCO3 ABG O2 Saturation ABG Base Excess ABG Hemoglobin Oxyhemoglobin Sodium Potassium Chloride Carbon Dioxide BUN Creatinine Glucose POC Glucose 137 H 143 H Lactic Acid Calcium Phosphorus Magnesium AST ALT Alkaline Phosphatase Lactate Dehydrogenase Troponin T C-Reactive Protein NT-Pro-B Natriuret Pep Total Protein Albumin LDL Cholesterol Direct Vitamin B12 Urine WBC (Auto) Fluid Glucose Fluid Total Protein Vancomycin Trough Crossmatch 12/17/21 12/18/21 12/18/21 17:01 05:04 05:04 WBC 13.8 H RBC 3.44 L Hgb 9.9 L Hct 28.8 L MCV MCH MCHC RDW 18.1 H Plt Count Eos % (Auto) Eos # (Auto) Seg Neuts % (Manual) Lymphocytes % (Manual) Seg Neutrophils # Seg Neutrophils # Man Lymphocytes # (Manual) Monocytes # (Manual) PT INR APTT D-Dimer ABG pH ABG pO2 ABG HCO3 ABG O2 Saturation ABG Base Excess ABG Hemoglobin Oxyhemoglobin Sodium 132 L Potassium Chloride 97.4 L Carbon Dioxide BUN 38 H Creatinine Glucose 134 H POC Glucose 132 H Lactic Acid Calcium Phosphorus Magnesium AST ALT Alkaline Phosphatase Lactate Dehydrogenase Troponin T C-Reactive Protein NT-Pro-B Natriuret Pep Total Protein Albumin LDL Cholesterol Direct Vitamin B12 Urine WBC (Auto) Fluid Glucose Fluid Total Protein Vancomycin Trough Crossmatch 12/18/21 12/18/21 12/18/21 05:28 10:57 16:27 WBC RBC Hgb Hct MCV MCH MCHC RDW Plt Count Eos % (Auto) Eos # (Auto) Seg Neuts % (Manual) Lymphocytes % (Manual) Seg Neutrophils # Seg Neutrophils # Man Lymphocytes # (Manual) Monocytes # (Manual) PT INR APTT D-Dimer ABG pH ABG pO2 ABG HCO3 ABG O2 Saturation ABG Base Excess ABG Hemoglobin Oxyhemoglobin Sodium Potassium Chloride Carbon Dioxide BUN Creatinine Glucose POC Glucose 118 H 132 H 130 H Lactic Acid Calcium Phosphorus Magnesium AST ALT Alkaline Phosphatase Lactate Dehydrogenase Troponin T C-Reactive Protein NT-Pro-B Natriuret Pep Total Protein Albumin LDL Cholesterol Direct Vitamin B12 Urine WBC (Auto) Fluid Glucose Fluid Total Protein Vancomycin Trough Crossmatch 12/19/21 12/19/21 12/19/21 00:02 04:41 04:41 WBC 16.0 H RBC 3.45 L Hgb 9.7 L Hct 29.1 L MCV MCH MCHC RDW 17.8 H Plt Count Eos % (Auto) Eos # (Auto) Seg Neuts % (Manual) Lymphocytes % (Manual) Seg Neutrophils # Seg Neutrophils # Man Lymphocytes # (Manual) Monocytes # (Manual) PT INR APTT D-Dimer ABG pH ABG pO2 ABG HCO3 ABG O2 Saturation ABG Base Excess ABG Hemoglobin Oxyhemoglobin Sodium 133 L Potassium Chloride 97.9 L Carbon Dioxide BUN 36 H Creatinine 0.5 L Glucose 126 H POC Glucose 127 H Lactic Acid Calcium 8.3 L Phosphorus Magnesium AST ALT Alkaline Phosphatase Lactate Dehydrogenase Troponin T C-Reactive Protein NT-Pro-B Natriuret Pep Total Protein Albumin LDL Cholesterol Direct Vitamin B12 Urine WBC (Auto) Fluid Glucose Fluid Total Protein Vancomycin Trough Crossmatch 12/19/21 12/19/21 12/19/21 05:26 12:20 16:43 WBC RBC Hgb Hct MCV MCH MCHC RDW Plt Count Eos % (Auto) Eos # (Auto) Seg Neuts % (Manual) Lymphocytes % (Manual) Seg Neutrophils # Seg Neutrophils # Man Lymphocytes # (Manual) Monocytes # (Manual) PT INR APTT D-Dimer ABG pH ABG pO2 ABG HCO3 ABG O2 Saturation ABG Base Excess ABG Hemoglobin Oxyhemoglobin Sodium Potassium Chloride Carbon Dioxide BUN Creatinine Glucose POC Glucose 119 H 145 H 126 H Lactic Acid Calcium Phosphorus Magnesium AST ALT Alkaline Phosphatase Lactate Dehydrogenase Troponin T C-Reactive Protein NT-Pro-B Natriuret Pep Total Protein Albumin LDL Cholesterol Direct Vitamin B12 Urine WBC (Auto) Fluid Glucose Fluid Total Protein Vancomycin Trough Crossmatch 12/19/21 12/20/21 12/20/21 23:30 04:54 04:54 WBC 12.3 H RBC 3.54 L Hgb 10.0 L Hct 29.5 L MCV MCH MCHC RDW 17.8 H Plt Count Eos % (Auto) Eos # (Auto) Seg Neuts % (Manual) 88.0 H Lymphocytes % (Manual) 6.0 L Seg Neutrophils # Seg Neutrophils # Man 10.8 H Lymphocytes # (Manual) 0.7 L Monocytes # (Manual) PT INR APTT D-Dimer ABG pH ABG pO2 ABG HCO3 ABG O2 Saturation ABG Base Excess ABG Hemoglobin Oxyhemoglobin Sodium 131 L Potassium Chloride 96.2 L Carbon Dioxide BUN 36 H Creatinine 0.5 L Glucose 130 H POC Glucose 117 H Lactic Acid Calcium Phosphorus Magnesium AST ALT Alkaline Phosphatase Lactate Dehydrogenase Troponin T C-Reactive Protein NT-Pro-B Natriuret Pep Total Protein Albumin LDL Cholesterol Direct Vitamin B12 Urine WBC (Auto) Fluid Glucose Fluid Total Protein Vancomycin Trough Crossmatch 12/20/21 12/20/21 12/20/21 05:20 11:51 17:30 WBC RBC Hgb Hct MCV MCH MCHC RDW Plt Count Eos % (Auto) Eos # (Auto) Seg Neuts % (Manual) Lymphocytes % (Manual) Seg Neutrophils # Seg Neutrophils # Man Lymphocytes # (Manual) Monocytes # (Manual) PT INR APTT D-Dimer ABG pH ABG pO2 ABG HCO3 ABG O2 Saturation ABG Base Excess ABG Hemoglobin Oxyhemoglobin Sodium Potassium Chloride Carbon Dioxide BUN Creatinine Glucose POC Glucose 126 H 119 H 127 H Lactic Acid Calcium Phosphorus Magnesium AST ALT Alkaline Phosphatase Lactate Dehydrogenase Troponin T C-Reactive Protein NT-Pro-B Natriuret Pep Total Protein Albumin LDL Cholesterol Direct Vitamin B12 Urine WBC (Auto) Fluid Glucose Fluid Total Protein Vancomycin Trough Crossmatch 12/21/21 12/21/21 12/21/21 00:45 04:21 04:21 WBC RBC 3.47 L Hgb 9.4 L Hct 29.2 L MCV MCH 27 L MCHC RDW 18.1 H Plt Count Eos % (Auto) Eos # (Auto) Seg Neuts % (Manual) Lymphocytes % (Manual) Seg Neutrophils # Seg Neutrophils # Man Lymphocytes # (Manual) Monocytes # (Manual) PT INR APTT D-Dimer ABG pH ABG pO2 ABG HCO3 ABG O2 Saturation ABG Base Excess ABG Hemoglobin Oxyhemoglobin Sodium 134 L Potassium Chloride Carbon Dioxide BUN 35 H Creatinine 0.5 L Glucose 122 H POC Glucose 125 H Lactic Acid Calcium 8.2 L Phosphorus Magnesium AST ALT Alkaline Phosphatase Lactate Dehydrogenase Troponin T C-Reactive Protein NT-Pro-B Natriuret Pep Total Protein Albumin LDL Cholesterol Direct Vitamin B12 Urine WBC (Auto) Fluid Glucose Fluid Total Protein Vancomycin Trough Crossmatch 12/21/21 12/21/21 12/21/21 05:38 11:29 16:16 WBC RBC Hgb Hct MCV MCH MCHC RDW Plt Count Eos % (Auto) Eos # (Auto) Seg Neuts % (Manual) Lymphocytes % (Manual) Seg Neutrophils # Seg Neutrophils # Man Lymphocytes # (Manual) Monocytes # (Manual) PT INR APTT D-Dimer ABG pH ABG pO2 ABG HCO3 ABG O2 Saturation ABG Base Excess ABG Hemoglobin Oxyhemoglobin Sodium Potassium Chloride Carbon Dioxide BUN Creatinine Glucose POC Glucose 127 H 121 H 113 H Lactic Acid Calcium Phosphorus Magnesium AST ALT Alkaline Phosphatase Lactate Dehydrogenase Troponin T C-Reactive Protein NT-Pro-B Natriuret Pep Total Protein Albumin LDL Cholesterol Direct Vitamin B12 Urine WBC (Auto) Fluid Glucose Fluid Total Protein Vancomycin Trough Crossmatch 12/22/21 12/22/21 12/23/21 04:58 04:58 06:40 WBC 11.5 H RBC 3.43 L Hgb 9.8 L Hct 28.7 L MCV MCH MCHC RDW 18.5 H 17.9 H Plt Count Eos % (Auto) Eos # (Auto) Seg Neuts % (Manual) Lymphocytes % (Manual) Seg Neutrophils # Seg Neutrophils # Man Lymphocytes # (Manual) Monocytes # (Manual) PT INR APTT D-Dimer ABG pH ABG pO2 ABG HCO3 ABG O2 Saturation ABG Base Excess ABG Hemoglobin Oxyhemoglobin Sodium 130 L Potassium Chloride 97.8 L Carbon Dioxide BUN 31 H Creatinine 0.5 L Glucose 122 H POC Glucose Lactic Acid Calcium 7.9 L Phosphorus Magnesium AST ALT Alkaline Phosphatase Lactate Dehydrogenase Troponin T C-Reactive Protein NT-Pro-B Natriuret Pep Total Protein Albumin LDL Cholesterol Direct Vitamin B12 Urine WBC (Auto) Fluid Glucose Fluid Total Protein Vancomycin Trough Crossmatch 12/23/21 12/23/21 12/24/21 06:40 23:25 04:24 WBC 11.7 H RBC Hgb 9.8 L Hct MCV MCH 26 L MCHC RDW 18.1 H Plt Count Eos % (Auto) Eos # (Auto) Seg Neuts % (Manual) Lymphocytes % (Manual) Seg Neutrophils # Seg Neutrophils # Man Lymphocytes # (Manual) Monocytes # (Manual) PT INR APTT D-Dimer ABG pH ABG pO2 ABG HCO3 ABG O2 Saturation ABG Base Excess ABG Hemoglobin Oxyhemoglobin Sodium 136 L Potassium Chloride Carbon Dioxide BUN 27 H Creatinine 0.4 L Glucose 107 H POC Glucose 110 H Lactic Acid Calcium 8.1 L Phosphorus Magnesium AST ALT Alkaline Phosphatase Lactate Dehydrogenase Troponin T C-Reactive Protein NT-Pro-B Natriuret Pep Total Protein Albumin LDL Cholesterol Direct Vitamin B12 Urine WBC (Auto) Fluid Glucose Fluid Total Protein Vancomycin Trough Crossmatch 12/24/21 12/24/21 12/24/21 04:24 11:08 15:45 WBC RBC Hgb Hct MCV MCH MCHC RDW Plt Count Eos % (Auto) Eos # (Auto) Seg Neuts % (Manual) Lymphocytes % (Manual) Seg Neutrophils # Seg Neutrophils # Man Lymphocytes # (Manual) Monocytes # (Manual) PT INR APTT D-Dimer ABG pH ABG pO2 ABG HCO3 ABG O2 Saturation ABG Base Excess ABG Hemoglobin Oxyhemoglobin Sodium 132 L Potassium Chloride Carbon Dioxide BUN 27 H Creatinine 0.3 L Glucose 108 H POC Glucose 116 H 107 H Lactic Acid Calcium Phosphorus Magnesium AST ALT Alkaline Phosphatase Lactate Dehydrogenase Troponin T C-Reactive Protein NT-Pro-B Natriuret Pep Total Protein Albumin LDL Cholesterol Direct Vitamin B12 Urine WBC (Auto) Fluid Glucose Fluid Total Protein Vancomycin Trough Crossmatch 12/24/21 12/25/21 12/25/21 23:43 05:29 11:48 WBC RBC Hgb Hct MCV MCH MCHC RDW Plt Count Eos % (Auto) Eos # (Auto) Seg Neuts % (Manual) Lymphocytes % (Manual) Seg Neutrophils # Seg Neutrophils # Man Lymphocytes # (Manual) Monocytes # (Manual) PT INR APTT D-Dimer ABG pH ABG pO2 ABG HCO3 ABG O2 Saturation ABG Base Excess ABG Hemoglobin Oxyhemoglobin Sodium Potassium Chloride Carbon Dioxide BUN Creatinine Glucose POC Glucose 123 H 107 H 119 H Lactic Acid Calcium Phosphorus Magnesium AST ALT Alkaline Phosphatase Lactate Dehydrogenase Troponin T C-Reactive Protein NT-Pro-B Natriuret Pep Total Protein Albumin LDL Cholesterol Direct Vitamin B12 Urine WBC (Auto) Fluid Glucose Fluid Total Protein Vancomycin Trough Crossmatch 12/26/21 12/26/21 12/26/21 00:06 05:56 07:51 WBC 11.4 H RBC 3.40 L Hgb 9.3 L Hct 28.3 L MCV MCH 27 L MCHC RDW 18.2 H Plt Count Eos % (Auto) Eos # (Auto) Seg Neuts % (Manual) Lymphocytes % (Manual) Seg Neutrophils # Seg Neutrophils # Man Lymphocytes # (Manual) Monocytes # (Manual) PT INR APTT D-Dimer ABG pH ABG pO2 ABG HCO3 ABG O2 Saturation ABG Base Excess ABG Hemoglobin Oxyhemoglobin Sodium Potassium Chloride Carbon Dioxide BUN Creatinine Glucose POC Glucose 133 H 107 H Lactic Acid Calcium Phosphorus Magnesium AST ALT Alkaline Phosphatase Lactate Dehydrogenase Troponin T C-Reactive Protein NT-Pro-B Natriuret Pep Total Protein Albumin LDL Cholesterol Direct Vitamin B12 Urine WBC (Auto) Fluid Glucose Fluid Total Protein Vancomycin Trough Crossmatch 12/26/21 12/26/21 12/26/21 07:51 11:43 17:06 WBC RBC Hgb Hct MCV MCH MCHC RDW Plt Count Eos % (Auto) Eos # (Auto) Seg Neuts % (Manual) Lymphocytes % (Manual) Seg Neutrophils # Seg Neutrophils # Man Lymphocytes # (Manual) Monocytes # (Manual) PT INR APTT D-Dimer ABG pH ABG pO2 ABG HCO3 ABG O2 Saturation ABG Base Excess ABG Hemoglobin Oxyhemoglobin Sodium 136 L Potassium Chloride Carbon Dioxide BUN 25 H Creatinine 0.3 L Glucose 131 H POC Glucose 119 H 128 H Lactic Acid Calcium Phosphorus Magnesium AST ALT Alkaline Phosphatase Lactate Dehydrogenase Troponin T C-Reactive Protein NT-Pro-B Natriuret Pep Total Protein Albumin LDL Cholesterol Direct Vitamin B12 Urine WBC (Auto) Fluid Glucose Fluid Total Protein Vancomycin Trough Crossmatch 12/28/21 12/28/21 12/29/21 09:05 09:05 04:40 WBC RBC 3.19 L Hgb 8.9 L Hct 26.4 L MCV MCH 27 L MCHC RDW 18.4 H 17.9 H Plt Count Eos % (Auto) Eos # (Auto) Seg Neuts % (Manual) Lymphocytes % (Manual) Seg Neutrophils # Seg Neutrophils # Man Lymphocytes # (Manual) Monocytes # (Manual) PT INR APTT D-Dimer ABG pH ABG pO2 ABG HCO3 ABG O2 Saturation ABG Base Excess ABG Hemoglobin Oxyhemoglobin Sodium 135 L Potassium Chloride 97.8 L Carbon Dioxide BUN 18 H Creatinine 0.3 L Glucose POC Glucose Lactic Acid Calcium Phosphorus Magnesium AST ALT Alkaline Phosphatase Lactate Dehydrogenase Troponin T C-Reactive Protein NT-Pro-B Natriuret Pep Total Protein Albumin LDL Cholesterol Direct Vitamin B12 Urine WBC (Auto) Fluid Glucose Fluid Total Protein Vancomycin Trough Crossmatch 12/29/21 12/29/21 12/30/21 04:40 12:47 04:05 WBC RBC 3.29 L Hgb 8.7 L Hct 27.6 L MCV MCH 27 L MCHC RDW 17.6 H Plt Count Eos % (Auto) Eos # (Auto) Seg Neuts % (Manual) Lymphocytes % (Manual) Seg Neutrophils # Seg Neutrophils # Man Lymphocytes # (Manual) Monocytes # (Manual) PT INR APTT D-Dimer ABG pH ABG pO2 ABG HCO3 ABG O2 Saturation ABG Base Excess ABG Hemoglobin Oxyhemoglobin Sodium 136 L Potassium Chloride Carbon Dioxide BUN Creatinine 0.3 L Glucose POC Glucose 67 L Lactic Acid Calcium 8.3 L Phosphorus Magnesium AST ALT Alkaline Phosphatase Lactate Dehydrogenase Troponin T C-Reactive Protein NT-Pro-B Natriuret Pep Total Protein Albumin LDL Cholesterol Direct Vitamin B12 Urine WBC (Auto) Fluid Glucose Fluid Total Protein Vancomycin Trough Crossmatch 12/30/21 12/30/21 12/31/21 04:05 08:30 00:07 WBC RBC Hgb Hct MCV MCH MCHC RDW Plt Count Eos % (Auto) Eos # (Auto) Seg Neuts % (Manual) Lymphocytes % (Manual) Seg Neutrophils # Seg Neutrophils # Man Lymphocytes # (Manual) Monocytes # (Manual) PT INR APTT 41.8 H D-Dimer ABG pH ABG pO2 ABG HCO3 ABG O2 Saturation ABG Base Excess ABG Hemoglobin Oxyhemoglobin Sodium 136 L Potassium 3.5 L Chloride Carbon Dioxide BUN Creatinine 0.4 L Glucose POC Glucose 139 H Lactic Acid Calcium Phosphorus Magnesium 1.50 L AST ALT Alkaline Phosphatase Lactate Dehydrogenase Troponin T C-Reactive Protein NT-Pro-B Natriuret Pep Total Protein Albumin LDL Cholesterol Direct Vitamin B12 Urine WBC (Auto) Fluid Glucose Fluid Total Protein Vancomycin Trough Crossmatch 12/31/21 12/31/21 12/31/21 04:00 04:00 04:52 WBC RBC 3.05 L Hgb 8.5 L Hct 25.5 L MCV MCH MCHC RDW 18.2 H Plt Count Eos % (Auto) Eos # (Auto) Seg Neuts % (Manual) Lymphocytes % (Manual) Seg Neutrophils # Seg Neutrophils # Man Lymphocytes # (Manual) Monocytes # (Manual) PT INR APTT D-Dimer ABG pH ABG pO2 ABG HCO3 ABG O2 Saturation ABG Base Excess ABG Hemoglobin Oxyhemoglobin Sodium Potassium Chloride Carbon Dioxide BUN 19 H Creatinine 0.4 L Glucose 116 H POC Glucose 121 H Lactic Acid Calcium Phosphorus Magnesium AST ALT Alkaline Phosphatase Lactate Dehydrogenase Troponin T C-Reactive Protein NT-Pro-B Natriuret Pep Total Protein Albumin LDL Cholesterol Direct Vitamin B12 Urine WBC (Auto) Fluid Glucose Fluid Total Protein Vancomycin Trough Crossmatch 12/31/21 12/31/21 01/01/22 11:23 17:42 04:31 WBC RBC 2.83 L Hgb 7.7 L Hct 23.2 L MCV MCH 27 L MCHC RDW 18.3 H Plt Count Eos % (Auto) Eos # (Auto) Seg Neuts % (Manual) Lymphocytes % (Manual) Seg Neutrophils # Seg Neutrophils # Man Lymphocytes # (Manual) Monocytes # (Manual) PT INR APTT D-Dimer ABG pH ABG pO2 ABG HCO3 ABG O2 Saturation ABG Base Excess ABG Hemoglobin Oxyhemoglobin Sodium Potassium Chloride Carbon Dioxide BUN Creatinine Glucose POC Glucose 116 H 107 H Lactic Acid Calcium Phosphorus Magnesium AST ALT Alkaline Phosphatase Lactate Dehydrogenase Troponin T C-Reactive Protein NT-Pro-B Natriuret Pep Total Protein Albumin LDL Cholesterol Direct Vitamin B12 Urine WBC (Auto) Fluid Glucose Fluid Total Protein Vancomycin Trough Crossmatch 01/01/22 01/01/22 01/01/22 04:31 05:24 11:25 WBC RBC Hgb Hct MCV MCH MCHC RDW Plt Count Eos % (Auto) Eos # (Auto) Seg Neuts % (Manual) Lymphocytes % (Manual) Seg Neutrophils # Seg Neutrophils # Man Lymphocytes # (Manual) Monocytes # (Manual) PT INR APTT D-Dimer ABG pH ABG pO2 ABG HCO3 ABG O2 Saturation ABG Base Excess ABG Hemoglobin Oxyhemoglobin Sodium 135 L Potassium Chloride 97.7 L Carbon Dioxide BUN 21 H Creatinine 0.5 L Glucose 127 H POC Glucose 124 H 140 H Lactic Acid Calcium 8.0 L Phosphorus Magnesium AST ALT Alkaline Phosphatase Lactate Dehydrogenase Troponin T C-Reactive Protein NT-Pro-B Natriuret Pep Total Protein Albumin LDL Cholesterol Direct Vitamin B12 Urine WBC (Auto) Fluid Glucose Fluid Total Protein Vancomycin Trough Crossmatch 01/01/22 01/01/22 01/02/22 18:11 23:26 04:01 WBC RBC Hgb Hct MCV MCH MCHC RDW Plt Count Eos % (Auto) Eos # (Auto) Seg Neuts % (Manual) Lymphocytes % (Manual) Seg Neutrophils # Seg Neutrophils # Man Lymphocytes # (Manual) Monocytes # (Manual) PT INR APTT D-Dimer ABG pH ABG pO2 ABG HCO3 ABG O2 Saturation ABG Base Excess ABG Hemoglobin Oxyhemoglobin Sodium 131 L Potassium 3.5 L Chloride 94.8 L Carbon Dioxide BUN 27 H Creatinine Glucose 121 H POC Glucose 144 H 121 H Lactic Acid Calcium Phosphorus Magnesium AST ALT Alkaline Phosphatase Lactate Dehydrogenase Troponin T C-Reactive Protein NT-Pro-B Natriuret Pep Total Protein Albumin LDL Cholesterol Direct Vitamin B12 Urine WBC (Auto) Fluid Glucose Fluid Total Protein Vancomycin Trough Crossmatch 01/02/22 01/02/22 01/02/22 04:01 05:30 11:10 WBC RBC 2.57 L Hgb 7.1 L Hct 21.5 L MCV MCH MCHC RDW 18.1 H Plt Count Eos % (Auto) Eos # (Auto) Seg Neuts % (Manual) Lymphocytes % (Manual) Seg Neutrophils # Seg Neutrophils # Man Lymphocytes # (Manual) Monocytes # (Manual) PT INR APTT D-Dimer ABG pH ABG pO2 ABG HCO3 ABG O2 Saturation ABG Base Excess ABG Hemoglobin Oxyhemoglobin Sodium Potassium Chloride Carbon Dioxide BUN Creatinine Glucose POC Glucose 124 H 117 H Lactic Acid Calcium Phosphorus Magnesium AST ALT Alkaline Phosphatase Lactate Dehydrogenase Troponin T C-Reactive Protein NT-Pro-B Natriuret Pep Total Protein Albumin LDL Cholesterol Direct Vitamin B12 Urine WBC (Auto) Fluid Glucose Fluid Total Protein Vancomycin Trough Crossmatch 01/02/22 01/02/22 01/02/22 16:08 17:30 23:26 WBC RBC Hgb Hct MCV MCH MCHC RDW Plt Count Eos % (Auto) Eos # (Auto) Seg Neuts % (Manual) Lymphocytes % (Manual) Seg Neutrophils # Seg Neutrophils # Man Lymphocytes # (Manual) Monocytes # (Manual) PT INR APTT D-Dimer ABG pH ABG pO2 ABG HCO3 ABG O2 Saturation ABG Base Excess ABG Hemoglobin Oxyhemoglobin Sodium Potassium Chloride Carbon Dioxide BUN Creatinine Glucose POC Glucose 130 H 114 H Lactic Acid Calcium Phosphorus Magnesium AST ALT Alkaline Phosphatase Lactate Dehydrogenase Troponin T C-Reactive Protein NT-Pro-B Natriuret Pep Total Protein Albumin LDL Cholesterol Direct Vitamin B12 Urine WBC (Auto) Fluid Glucose Fluid Total Protein Vancomycin Trough 22.8 H Crossmatch 01/03/22 01/03/22 01/03/22 04:53 04:53 06:23 WBC RBC 2.82 L Hgb 7.7 L Hct 23.4 L MCV MCH 27 L MCHC RDW 18.0 H Plt Count Eos % (Auto) Eos # (Auto) Seg Neuts % (Manual) Lymphocytes % (Manual) Seg Neutrophils # Seg Neutrophils # Man Lymphocytes # (Manual) Monocytes # (Manual) PT INR APTT D-Dimer ABG pH ABG pO2 ABG HCO3 ABG O2 Saturation ABG Base Excess ABG Hemoglobin Oxyhemoglobin Sodium 133 L Potassium Chloride 96.2 L Carbon Dioxide BUN 30 H Creatinine Glucose 107 H POC Glucose 122 H Lactic Acid Calcium Phosphorus Magnesium AST ALT Alkaline Phosphatase Lactate Dehydrogenase Troponin T C-Reactive Protein NT-Pro-B Natriuret Pep Total Protein Albumin LDL Cholesterol Direct Vitamin B12 Urine WBC (Auto) Fluid Glucose Fluid Total Protein Vancomycin Trough Crossmatch 01/03/22 01/04/22 01/04/22 17:35 04:00 12:32 WBC RBC Hgb Hct MCV MCH MCHC RDW Plt Count Eos % (Auto) Eos # (Auto) Seg Neuts % (Manual) Lymphocytes % (Manual) Seg Neutrophils # Seg Neutrophils # Man Lymphocytes # (Manual) Monocytes # (Manual) PT INR APTT D-Dimer ABG pH ABG pO2 ABG HCO3 ABG O2 Saturation ABG Base Excess ABG Hemoglobin Oxyhemoglobin Sodium 132 L Potassium Chloride 92.8 L Carbon Dioxide BUN 30 H Creatinine Glucose 115 H POC Glucose 107 H 111 H Lactic Acid Calcium Phosphorus Magnesium 1.60 L AST ALT Alkaline Phosphatase Lactate Dehydrogenase Troponin T C-Reactive Protein NT-Pro-B Natriuret Pep Total Protein Albumin LDL Cholesterol Direct Vitamin B12 Urine WBC (Auto) Fluid Glucose Fluid Total Protein Vancomycin Trough Crossmatch 01/04/22 01/05/22 01/05/22 16:45 04:30 04:30 WBC RBC 3.11 L Hgb 8.4 L Hct 25.5 L MCV MCH 27 L MCHC RDW 17.6 H Plt Count Eos % (Auto) Eos # (Auto) Seg Neuts % (Manual) Lymphocytes % (Manual) Seg Neutrophils # Seg Neutrophils # Man Lymphocytes # (Manual) Monocytes # (Manual) PT INR APTT D-Dimer ABG pH ABG pO2 ABG HCO3 ABG O2 Saturation ABG Base Excess ABG Hemoglobin Oxyhemoglobin Sodium 135 L Potassium Chloride 93.6 L Carbon Dioxide BUN 29 H Creatinine Glucose POC Glucose 111 H Lactic Acid Calcium Phosphorus Magnesium AST ALT Alkaline Phosphatase Lactate Dehydrogenase Troponin T C-Reactive Protein NT-Pro-B Natriuret Pep Total Protein Albumin LDL Cholesterol Direct Vitamin B12 Urine WBC (Auto) Fluid Glucose Fluid Total Protein Vancomycin Trough Crossmatch 01/05/22 01/05/22 01/06/22 17:04 23:27 04:06 WBC RBC 2.89 L Hgb 7.7 L Hct 23.8 L MCV MCH 27 L MCHC RDW 18.0 H Plt Count Eos % (Auto) Eos # (Auto) Seg Neuts % (Manual) Lymphocytes % (Manual) Seg Neutrophils # Seg Neutrophils # Man Lymphocytes # (Manual) Monocytes # (Manual) PT INR APTT D-Dimer ABG pH ABG pO2 ABG HCO3 ABG O2 Saturation ABG Base Excess ABG Hemoglobin Oxyhemoglobin Sodium Potassium Chloride Carbon Dioxide BUN Creatinine Glucose POC Glucose 67 L 110 H Lactic Acid Calcium Phosphorus Magnesium AST ALT Alkaline Phosphatase Lactate Dehydrogenase Troponin T C-Reactive Protein NT-Pro-B Natriuret Pep Total Protein Albumin LDL Cholesterol Direct Vitamin B12 Urine WBC (Auto) Fluid Glucose Fluid Total Protein Vancomycin Trough Crossmatch 01/06/22 01/06/22 01/06/22 04:06 04:06 13:40 WBC RBC Hgb Hct MCV MCH MCHC RDW Plt Count Eos % (Auto) Eos # (Auto) Seg Neuts % (Manual) Lymphocytes % (Manual) Seg Neutrophils # Seg Neutrophils # Man Lymphocytes # (Manual) Monocytes # (Manual) PT 16.9 H INR 1.23 H APTT D-Dimer ABG pH ABG pO2 ABG HCO3 ABG O2 Saturation ABG Base Excess ABG Hemoglobin Oxyhemoglobin Sodium 132 L Potassium Chloride 92.3 L Carbon Dioxide BUN 26 H Creatinine Glucose 111 H POC Glucose Lactic Acid Calcium Phosphorus Magnesium AST ALT Alkaline Phosphatase Lactate Dehydrogenase Troponin T C-Reactive Protein NT-Pro-B Natriuret Pep Total Protein Albumin LDL Cholesterol Direct Vitamin B12 Urine WBC (Auto) Fluid Glucose 96 H Fluid Total Protein < 3.0 L Vancomycin Trough Crossmatch 01/06/22 01/07/22 01/07/22 23:41 05:20 11:30 WBC RBC Hgb Hct MCV MCH MCHC RDW Plt Count Eos % (Auto) Eos # (Auto) Seg Neuts % (Manual) Lymphocytes % (Manual) Seg Neutrophils # Seg Neutrophils # Man Lymphocytes # (Manual) Monocytes # (Manual) PT INR APTT D-Dimer ABG pH ABG pO2 ABG HCO3 ABG O2 Saturation ABG Base Excess ABG Hemoglobin Oxyhemoglobin Sodium Potassium Chloride Carbon Dioxide BUN Creatinine Glucose POC Glucose 120 H 111 H 113 H Lactic Acid Calcium Phosphorus Magnesium AST ALT Alkaline Phosphatase Lactate Dehydrogenase Troponin T C-Reactive Protein NT-Pro-B Natriuret Pep Total Protein Albumin LDL Cholesterol Direct Vitamin B12 Urine WBC (Auto) Fluid Glucose Fluid Total Protein Vancomycin Trough Crossmatch 01/07/22 01/07/22 01/08/22 17:00 23:41 11:26 WBC RBC Hgb Hct MCV MCH MCHC RDW Plt Count Eos % (Auto) Eos # (Auto) Seg Neuts % (Manual) Lymphocytes % (Manual) Seg Neutrophils # Seg Neutrophils # Man Lymphocytes # (Manual) Monocytes # (Manual) PT INR APTT D-Dimer ABG pH ABG pO2 ABG HCO3 ABG O2 Saturation ABG Base Excess ABG Hemoglobin Oxyhemoglobin Sodium Potassium Chloride Carbon Dioxide BUN Creatinine Glucose POC Glucose 121 H 110 H 129 H Lactic Acid Calcium Phosphorus Magnesium AST ALT Alkaline Phosphatase Lactate Dehydrogenase Troponin T C-Reactive Protein NT-Pro-B Natriuret Pep Total Protein Albumin LDL Cholesterol Direct Vitamin B12 Urine WBC (Auto) Fluid Glucose Fluid Total Protein Vancomycin Trough Crossmatch 01/08/22 01/09/22 01/10/22 16:23 18:13 00:27 WBC RBC Hgb Hct MCV MCH MCHC RDW Plt Count Eos % (Auto) Eos # (Auto) Seg Neuts % (Manual) Lymphocytes % (Manual) Seg Neutrophils # Seg Neutrophils # Man Lymphocytes # (Manual) Monocytes # (Manual) PT INR APTT D-Dimer ABG pH ABG pO2 ABG HCO3 ABG O2 Saturation ABG Base Excess ABG Hemoglobin Oxyhemoglobin Sodium Potassium Chloride Carbon Dioxide BUN Creatinine Glucose POC Glucose 118 H 118 H 111 H Lactic Acid Calcium Phosphorus Magnesium AST ALT Alkaline Phosphatase Lactate Dehydrogenase Troponin T C-Reactive Protein NT-Pro-B Natriuret Pep Total Protein Albumin LDL Cholesterol Direct Vitamin B12 Urine WBC (Auto) Fluid Glucose Fluid Total Protein Vancomycin Trough Crossmatch 01/10/22 01/10/22 01/11/22 04:00 05:47 05:10 WBC RBC Hgb Hct MCV MCH MCHC RDW Plt Count Eos % (Auto) Eos # (Auto) Seg Neuts % (Manual) Lymphocytes % (Manual) Seg Neutrophils # Seg Neutrophils # Man Lymphocytes # (Manual) Monocytes # (Manual) PT INR APTT D-Dimer ABG pH ABG pO2 ABG HCO3 ABG O2 Saturation ABG Base Excess ABG Hemoglobin Oxyhemoglobin Sodium 133 L Potassium Chloride 92.6 L Carbon Dioxide 31 H BUN 29 H Creatinine 0.5 L Glucose 115 H POC Glucose 106 H 118 H Lactic Acid Calcium Phosphorus Magnesium AST ALT Alkaline Phosphatase Lactate Dehydrogenase Troponin T C-Reactive Protein NT-Pro-B Natriuret Pep Total Protein Albumin LDL Cholesterol Direct Vitamin B12 Urine WBC (Auto) Fluid Glucose Fluid Total Protein Vancomycin Trough Crossmatch 01/11/22 01/11/22 01/11/22 11:14 17:14 23:52 WBC RBC Hgb Hct MCV MCH MCHC RDW Plt Count Eos % (Auto) Eos # (Auto) Seg Neuts % (Manual) Lymphocytes % (Manual) Seg Neutrophils # Seg Neutrophils # Man Lymphocytes # (Manual) Monocytes # (Manual) PT INR APTT D-Dimer ABG pH ABG pO2 ABG HCO3 ABG O2 Saturation ABG Base Excess ABG Hemoglobin Oxyhemoglobin Sodium Potassium Chloride Carbon Dioxide BUN Creatinine Glucose POC Glucose 136 H 117 H 110 H Lactic Acid Calcium Phosphorus Magnesium AST ALT Alkaline Phosphatase Lactate Dehydrogenase Troponin T C-Reactive Protein NT-Pro-B Natriuret Pep Total Protein Albumin LDL Cholesterol Direct Vitamin B12 Urine WBC (Auto) Fluid Glucose Fluid Total Protein Vancomycin Trough Crossmatch 01/12/22 01/13/22 01/13/22 05:39 11:15 17:21 WBC RBC Hgb Hct MCV MCH MCHC RDW Plt Count Eos % (Auto) Eos # (Auto) Seg Neuts % (Manual) Lymphocytes % (Manual) Seg Neutrophils # Seg Neutrophils # Man Lymphocytes # (Manual) Monocytes # (Manual) PT INR APTT D-Dimer ABG pH ABG pO2 ABG HCO3 ABG O2 Saturation ABG Base Excess ABG Hemoglobin Oxyhemoglobin Sodium Potassium Chloride Carbon Dioxide BUN Creatinine Glucose POC Glucose 110 H 113 H 121 H Lactic Acid Calcium Phosphorus Magnesium AST ALT Alkaline Phosphatase Lactate Dehydrogenase Troponin T C-Reactive Protein NT-Pro-B Natriuret Pep Total Protein Albumin LDL Cholesterol Direct Vitamin B12 Urine WBC (Auto) Fluid Glucose Fluid Total Protein Vancomycin Trough Crossmatch 01/14/22 01/14/22 01/15/22 05:33 11:28 00:13 WBC RBC Hgb Hct MCV MCH MCHC RDW Plt Count Eos % (Auto) Eos # (Auto) Seg Neuts % (Manual) Lymphocytes % (Manual) Seg Neutrophils # Seg Neutrophils # Man Lymphocytes # (Manual) Monocytes # (Manual) PT INR APTT D-Dimer ABG pH ABG pO2 ABG HCO3 ABG O2 Saturation ABG Base Excess ABG Hemoglobin Oxyhemoglobin Sodium Potassium Chloride Carbon Dioxide BUN Creatinine Glucose POC Glucose 136 H 117 H 109 H Lactic Acid Calcium Phosphorus Magnesium AST ALT Alkaline Phosphatase Lactate Dehydrogenase Troponin T C-Reactive Protein NT-Pro-B Natriuret Pep Total Protein Albumin LDL Cholesterol Direct Vitamin B12 Urine WBC (Auto) Fluid Glucose Fluid Total Protein Vancomycin Trough Crossmatch 01/15/22 01/15/22 01/15/22 05:24 11:38 14:36 WBC RBC 3.11 L Hgb 8.4 L Hct 25.7 L MCV MCH 27 L MCHC RDW 17.2 H Plt Count Eos % (Auto) Eos # (Auto) Seg Neuts % (Manual) 82.0 H Lymphocytes % (Manual) 11.0 L Seg Neutrophils # Seg Neutrophils # Man 8.8 H Lymphocytes # (Manual) Monocytes # (Manual) PT INR APTT D-Dimer ABG pH ABG pO2 ABG HCO3 ABG O2 Saturation ABG Base Excess ABG Hemoglobin Oxyhemoglobin Sodium Potassium Chloride Carbon Dioxide BUN Creatinine Glucose POC Glucose 117 H 107 H Lactic Acid Calcium Phosphorus Magnesium AST ALT Alkaline Phosphatase Lactate Dehydrogenase Troponin T C-Reactive Protein NT-Pro-B Natriuret Pep Total Protein Albumin LDL Cholesterol Direct Vitamin B12 Urine WBC (Auto) Fluid Glucose Fluid Total Protein Vancomycin Trough Crossmatch 01/15/22 01/15/22 01/15/22 17:05 21:07 Unknown WBC RBC 2.97 L Hgb 8.0 L Hct 24.3 L MCV MCH 27 L MCHC RDW 17.2 H Plt Count Eos % (Auto) Eos # (Auto) Seg Neuts % (Manual) Lymphocytes % (Manual) Seg Neutrophils # Seg Neutrophils # Man Lymphocytes # (Manual) Monocytes # (Manual) PT INR APTT D-Dimer ABG pH ABG pO2 ABG HCO3 ABG O2 Saturation ABG Base Excess ABG Hemoglobin Oxyhemoglobin Sodium Potassium Chloride Carbon Dioxide BUN Creatinine Glucose POC Glucose 108 H Lactic Acid Calcium Phosphorus Magnesium AST ALT Alkaline Phosphatase Lactate Dehydrogenase Troponin T 0.088 H C-Reactive Protein NT-Pro-B Natriuret Pep Total Protein Albumin LDL Cholesterol Direct 44 L Vitamin B12 Urine WBC (Auto) Fluid Glucose Fluid Total Protein Vancomycin Trough Crossmatch 01/15/22 01/15/22 01/16/22 Unknown Unknown 05:21 WBC RBC Hgb Hct MCV MCH MCHC RDW Plt Count Eos % (Auto) Eos # (Auto) Seg Neuts % (Manual) Lymphocytes % (Manual) Seg Neutrophils # Seg Neutrophils # Man Lymphocytes # (Manual) Monocytes # (Manual) PT INR APTT D-Dimer ABG pH ABG pO2 ABG HCO3 ABG O2 Saturation ABG Base Excess ABG Hemoglobin Oxyhemoglobin Sodium 131 L 134 L 134 L Potassium 3.4 L Chloride 93.1 L 93.9 L 95.4 L Carbon Dioxide BUN 27 H 26 H 24 H Creatinine Glucose 110 H 168 H POC Glucose Lactic Acid Calcium 8.3 L 8.1 L Phosphorus Magnesium AST ALT Alkaline Phosphatase Lactate Dehydrogenase Troponin T 0.078 H C-Reactive Protein NT-Pro-B Natriuret Pep Total Protein Albumin LDL Cholesterol Direct Vitamin B12 Urine WBC (Auto) Fluid Glucose Fluid Total Protein Vancomycin Trough Crossmatch 01/16/22 01/16/22 01/17/22 12:59 23:22 05:20 WBC RBC Hgb Hct MCV MCH MCHC RDW Plt Count Eos % (Auto) Eos # (Auto) Seg Neuts % (Manual) Lymphocytes % (Manual) Seg Neutrophils # Seg Neutrophils # Man Lymphocytes # (Manual) Monocytes # (Manual) PT INR APTT D-Dimer ABG pH ABG pO2 ABG HCO3 ABG O2 Saturation ABG Base Excess ABG Hemoglobin Oxyhemoglobin Sodium Potassium Chloride Carbon Dioxide BUN Creatinine Glucose POC Glucose 159 H 113 H 111 H Lactic Acid Calcium Phosphorus Magnesium AST ALT Alkaline Phosphatase Lactate Dehydrogenase Troponin T C-Reactive Protein NT-Pro-B Natriuret Pep Total Protein Albumin LDL Cholesterol Direct Vitamin B12 Urine WBC (Auto) Fluid Glucose Fluid Total Protein Vancomycin Trough Crossmatch 01/17/22 01/17/22 01/18/22 14:24 17:14 05:39 WBC RBC Hgb Hct MCV MCH MCHC RDW Plt Count Eos % (Auto) Eos # (Auto) Seg Neuts % (Manual) Lymphocytes % (Manual) Seg Neutrophils # Seg Neutrophils # Man Lymphocytes # (Manual) Monocytes # (Manual) PT INR APTT D-Dimer ABG pH ABG pO2 55.0 L ABG HCO3 29.5 H ABG O2 Saturation 87.8 L ABG Base Excess 4.5 H ABG Hemoglobin 9.3 L Oxyhemoglobin 86.1 L Sodium Potassium Chloride Carbon Dioxide BUN Creatinine Glucose POC Glucose 126 H 108 H Lactic Acid Calcium Phosphorus Magnesium AST ALT Alkaline Phosphatase Lactate Dehydrogenase Troponin T C-Reactive Protein NT-Pro-B Natriuret Pep Total Protein Albumin LDL Cholesterol Direct Vitamin B12 Urine WBC (Auto) Fluid Glucose Fluid Total Protein Vancomycin Trough Crossmatch 01/18/22 01/18/22 01/19/22 11:53 12:50 00:04 WBC RBC Hgb Hct MCV MCH MCHC RDW Plt Count Eos % (Auto) Eos # (Auto) Seg Neuts % (Manual) Lymphocytes % (Manual) Seg Neutrophils # Seg Neutrophils # Man Lymphocytes # (Manual) Monocytes # (Manual) PT INR APTT D-Dimer ABG pH ABG pO2 112.3 H ABG HCO3 30.9 H ABG O2 Saturation ABG Base Excess 5.8 H ABG Hemoglobin 8.8 L Oxyhemoglobin Sodium Potassium Chloride Carbon Dioxide BUN Creatinine Glucose POC Glucose 113 H 115 H Lactic Acid Calcium Phosphorus Magnesium AST ALT Alkaline Phosphatase Lactate Dehydrogenase Troponin T C-Reactive Protein NT-Pro-B Natriuret Pep Total Protein Albumin LDL Cholesterol Direct Vitamin B12 Urine WBC (Auto) Fluid Glucose Fluid Total Protein Vancomycin Trough Crossmatch 01/19/22 01/19/22 01/19/22 04:50 04:50 11:51 WBC RBC 3.14 L Hgb 8.4 L Hct 26.0 L MCV MCH 27 L MCHC RDW 18.2 H Plt Count Eos % (Auto) Eos # (Auto) Seg Neuts % (Manual) Lymphocytes % (Manual) Seg Neutrophils # Seg Neutrophils # Man Lymphocytes # (Manual) Monocytes # (Manual) PT INR APTT D-Dimer ABG pH ABG pO2 ABG HCO3 ABG O2 Saturation ABG Base Excess ABG Hemoglobin Oxyhemoglobin Sodium 134 L Potassium Chloride 95.4 L Carbon Dioxide BUN 28 H Creatinine Glucose POC Glucose 111 H Lactic Acid Calcium Phosphorus Magnesium AST ALT Alkaline Phosphatase Lactate Dehydrogenase Troponin T C-Reactive Protein NT-Pro-B Natriuret Pep Total Protein Albumin LDL Cholesterol Direct Vitamin B12 Urine WBC (Auto) Fluid Glucose Fluid Total Protein Vancomycin Trough Crossmatch 01/19/22 01/20/22 01/21/22 20:45 11:43 23:32 WBC RBC Hgb Hct MCV MCH MCHC RDW Plt Count Eos % (Auto) Eos # (Auto) Seg Neuts % (Manual) Lymphocytes % (Manual) Seg Neutrophils # Seg Neutrophils # Man Lymphocytes # (Manual) Monocytes # (Manual) PT INR APTT D-Dimer ABG pH ABG pO2 95.2 H ABG HCO3 29.8 H ABG O2 Saturation ABG Base Excess 4.3 H ABG Hemoglobin 8.0 L Oxyhemoglobin Sodium Potassium Chloride Carbon Dioxide BUN Creatinine Glucose POC Glucose 118 H 113 H Lactic Acid Calcium Phosphorus Magnesium AST ALT Alkaline Phosphatase Lactate Dehydrogenase Troponin T C-Reactive Protein NT-Pro-B Natriuret Pep Total Protein Albumin LDL Cholesterol Direct Vitamin B12 Urine WBC (Auto) Fluid Glucose Fluid Total Protein Vancomycin Trough Crossmatch 01/22/22 01/22/22 01/23/22 11:12 17:54 09:36 WBC RBC Hgb Hct MCV MCH MCHC RDW Plt Count Eos % (Auto) Eos # (Auto) Seg Neuts % (Manual) Lymphocytes % (Manual) Seg Neutrophils # Seg Neutrophils # Man Lymphocytes # (Manual) Monocytes # (Manual) PT INR APTT D-Dimer ABG pH ABG pO2 ABG HCO3 ABG O2 Saturation ABG Base Excess ABG Hemoglobin Oxyhemoglobin Sodium Potassium Chloride Carbon Dioxide BUN Creatinine Glucose POC Glucose 110 H 115 H Lactic Acid Calcium Phosphorus Magnesium AST ALT Alkaline Phosphatase Lactate Dehydrogenase Troponin T C-Reactive Protein NT-Pro-B Natriuret Pep Total Protein Albumin LDL Cholesterol Direct Vitamin B12 Urine WBC (Auto) 16.0 H Fluid Glucose Fluid Total Protein Vancomycin Trough Crossmatch 01/23/22 01/23/22 01/24/22 11:49 11:50 05:37 WBC RBC Hgb Hct MCV MCH MCHC RDW Plt Count Eos % (Auto) Eos # (Auto) Seg Neuts % (Manual) Lymphocytes % (Manual) Seg Neutrophils # Seg Neutrophils # Man Lymphocytes # (Manual) Monocytes # (Manual) PT INR APTT D-Dimer ABG pH 7.310 L ABG pO2 43.9 L ABG HCO3 28.0 H ABG O2 Saturation 70.8 L ABG Base Excess ABG Hemoglobin 9.3 L Oxyhemoglobin 69.2 L Sodium Potassium Chloride Carbon Dioxide BUN Creatinine Glucose POC Glucose 194 H 118 H Lactic Acid Calcium Phosphorus Magnesium AST ALT Alkaline Phosphatase Lactate Dehydrogenase Troponin T C-Reactive Protein NT-Pro-B Natriuret Pep Total Protein Albumin LDL Cholesterol Direct Vitamin B12 Urine WBC (Auto) Fluid Glucose Fluid Total Protein Vancomycin Trough Crossmatch 01/24/22 01/25/22 01/25/22 11:56 12:20 13:17 WBC RBC Hgb Hct MCV MCH MCHC RDW Plt Count Eos % (Auto) Eos # (Auto) Seg Neuts % (Manual) Lymphocytes % (Manual) Seg Neutrophils # Seg Neutrophils # Man Lymphocytes # (Manual) Monocytes # (Manual) PT INR APTT D-Dimer ABG pH 7.488 H ABG pO2 58.9 L ABG HCO3 28.3 H ABG O2 Saturation 94.9 L ABG Base Excess 4.7 H ABG Hemoglobin 8.7 L Oxyhemoglobin 92.7 L Sodium Potassium Chloride Carbon Dioxide BUN Creatinine Glucose POC Glucose 119 H 126 H Lactic Acid Calcium Phosphorus Magnesium AST ALT Alkaline Phosphatase Lactate Dehydrogenase Troponin T C-Reactive Protein NT-Pro-B Natriuret Pep Total Protein Albumin LDL Cholesterol Direct Vitamin B12 Urine WBC (Auto) Fluid Glucose Fluid Total Protein Vancomycin Trough Crossmatch 01/26/22 01/26/22 01/26/22 05:59 10:16 10:16 WBC 12.7 H RBC Hgb 9.9 L Hct MCV MCH 27 L MCHC RDW 18.3 H Plt Count Eos % (Auto) 4.5 H Eos # (Auto) 0.6 H Seg Neuts % (Manual) Lymphocytes % (Manual) Seg Neutrophils # 8.2 H Seg Neutrophils # Man Lymphocytes # (Manual) Monocytes # (Manual) PT INR APTT D-Dimer ABG pH ABG pO2 ABG HCO3 ABG O2 Saturation ABG Base Excess ABG Hemoglobin Oxyhemoglobin Sodium Potassium Chloride 96.6 L Carbon Dioxide BUN 29 H Creatinine Glucose 140 H POC Glucose 130 H Lactic Acid Calcium Phosphorus Magnesium AST ALT Alkaline Phosphatase Lactate Dehydrogenase Troponin T C-Reactive Protein NT-Pro-B Natriuret Pep Total Protein Albumin LDL Cholesterol Direct Vitamin B12 Urine WBC (Auto) Fluid Glucose Fluid Total Protein Vancomycin Trough Crossmatch 01/26/22 01/27/22 01/27/22 11:49 00:22 12:48 WBC RBC Hgb Hct MCV MCH MCHC RDW Plt Count Eos % (Auto) Eos # (Auto) Seg Neuts % (Manual) Lymphocytes % (Manual) Seg Neutrophils # Seg Neutrophils # Man Lymphocytes # (Manual) Monocytes # (Manual) PT INR APTT D-Dimer ABG pH ABG pO2 ABG HCO3 ABG O2 Saturation ABG Base Excess ABG Hemoglobin Oxyhemoglobin Sodium Potassium Chloride Carbon Dioxide BUN Creatinine Glucose POC Glucose 161 H 107 H 131 H Lactic Acid Calcium Phosphorus Magnesium AST ALT Alkaline Phosphatase Lactate Dehydrogenase Troponin T C-Reactive Protein NT-Pro-B Natriuret Pep Total Protein Albumin LDL Cholesterol Direct Vitamin B12 Urine WBC (Auto) Fluid Glucose Fluid Total Protein Vancomycin Trough Crossmatch 01/27/22 01/29/22 01/29/22 23:08 04:40 05:52 WBC RBC Hgb Hct MCV MCH MCHC RDW Plt Count Eos % (Auto) Eos # (Auto) Seg Neuts % (Manual) Lymphocytes % (Manual) Seg Neutrophils # Seg Neutrophils # Man Lymphocytes # (Manual) Monocytes # (Manual) PT INR APTT D-Dimer ABG pH ABG pO2 ABG HCO3 ABG O2 Saturation ABG Base Excess ABG Hemoglobin Oxyhemoglobin Sodium Potassium Chloride 95.9 L Carbon Dioxide BUN 36 H Creatinine Glucose 127 H POC Glucose 109 H 108 H Lactic Acid Calcium Phosphorus Magnesium AST ALT Alkaline Phosphatase Lactate Dehydrogenase Troponin T C-Reactive Protein NT-Pro-B Natriuret Pep Total Protein Albumin LDL Cholesterol Direct Vitamin B12 Urine WBC (Auto) Fluid Glucose Fluid Total Protein Vancomycin Trough Crossmatch 01/29/22 01/30/22 01/30/22 11:26 05:29 12:44 WBC RBC Hgb Hct MCV MCH MCHC RDW Plt Count Eos % (Auto) Eos # (Auto) Seg Neuts % (Manual) Lymphocytes % (Manual) Seg Neutrophils # Seg Neutrophils # Man Lymphocytes # (Manual) Monocytes # (Manual) PT INR APTT D-Dimer ABG pH ABG pO2 ABG HCO3 ABG O2 Saturation ABG Base Excess ABG Hemoglobin Oxyhemoglobin Sodium Potassium Chloride Carbon Dioxide BUN Creatinine Glucose POC Glucose 119 H 109 H 108 H Lactic Acid Calcium Phosphorus Magnesium AST ALT Alkaline Phosphatase Lactate Dehydrogenase Troponin T C-Reactive Protein NT-Pro-B Natriuret Pep Total Protein Albumin LDL Cholesterol Direct Vitamin B12 Urine WBC (Auto) Fluid Glucose Fluid Total Protein Vancomycin Trough Crossmatch 01/30/22 01/31/22 01/31/22 23:34 04:08 05:12 WBC RBC Hgb Hct MCV MCH MCHC RDW Plt Count Eos % (Auto) Eos # (Auto) Seg Neuts % (Manual) Lymphocytes % (Manual) Seg Neutrophils # Seg Neutrophils # Man Lymphocytes # (Manual) Monocytes # (Manual) PT INR APTT D-Dimer ABG pH ABG pO2 ABG HCO3 ABG O2 Saturation ABG Base Excess ABG Hemoglobin Oxyhemoglobin Sodium 136 L Potassium Chloride 97.6 L Carbon Dioxide BUN 41 H Creatinine Glucose 120 H POC Glucose 109 H 111 H Lactic Acid Calcium Phosphorus Magnesium AST ALT Alkaline Phosphatase Lactate Dehydrogenase Troponin T C-Reactive Protein NT-Pro-B Natriuret Pep Total Protein Albumin LDL Cholesterol Direct Vitamin B12 Urine WBC (Auto) Fluid Glucose Fluid Total Protein Vancomycin Trough Crossmatch 02/01/22 02/02/22 02/03/22 04:00 08:36 04:00 WBC RBC 3.20 L Hgb 8.9 L Hct 26.5 L MCV MCH MCHC RDW 18.6 H Plt Count Eos % (Auto) Eos # (Auto) Seg Neuts % (Manual) Lymphocytes % (Manual) Seg Neutrophils # Seg Neutrophils # Man Lymphocytes # (Manual) Monocytes # (Manual) PT INR APTT D-Dimer ABG pH ABG pO2 ABG HCO3 ABG O2 Saturation ABG Base Excess ABG Hemoglobin Oxyhemoglobin Sodium 136 L 135 L Potassium Chloride 94.1 L 94.6 L Carbon Dioxide BUN 41 H 38 H Creatinine Glucose 118 H POC Glucose Lactic Acid Calcium Phosphorus Magnesium AST ALT Alkaline Phosphatase Lactate Dehydrogenase Troponin T C-Reactive Protein NT-Pro-B Natriuret Pep Total Protein Albumin LDL Cholesterol Direct Vitamin B12 Urine WBC (Auto) Fluid Glucose Fluid Total Protein Vancomycin Trough Crossmatch 02/03/22 04:00 WBC RBC Hgb Hct MCV MCH MCHC RDW Plt Count Eos % (Auto) Eos # (Auto) Seg Neuts % (Manual) Lymphocytes % (Manual) Seg Neutrophils # Seg Neutrophils # Man Lymphocytes # (Manual) Monocytes # (Manual) PT INR APTT D-Dimer ABG pH ABG pO2 ABG HCO3 ABG O2 Saturation ABG Base Excess ABG Hemoglobin Oxyhemoglobin Sodium 136 L Potassium Chloride 95.7 L Carbon Dioxide BUN 42 H Creatinine Glucose 114 H POC Glucose Lactic Acid Calcium Phosphorus Magnesium AST ALT Alkaline Phosphatase Lactate Dehydrogenase Troponin T C-Reactive Protein NT-Pro-B Natriuret Pep Total Protein Albumin LDL Cholesterol Direct Vitamin B12 Urine WBC (Auto) Fluid Glucose Fluid Total Protein Vancomycin Trough Crossmatch Allied health notes reviewed: nursing
--- NOTE | 2022-02-03 13:27 | Progress Note ---
Assessment and Plan Assessment and plan: This is an 82-year-old female with DM, HTN , CHB s/p PPM, CAD s/p PCI and arthritis who presented to the emergency department on 11/04 for shortness of breath ongoing for the past 3 days, cough and according to family a fever of 102.2. Upon arrival of EMS patient was found to be tachypneic and hypoxic with SPO2 of 76% on room air which later improved to 88% on nonrebreather. Work-up in the emergency department included a CXR which showed bilateral interstitial pulmonary edema with bilateral pleural effusions and bibasilar opacities, leukocytosis and anemia with a hemoglobin of 6.1. Patient was admitted to the hospitalist service with acute anemia, acute hypoxic respiratory failure, bilateral pneumonia and COVID-19 PUI with consults to pulmonology, infectious disease and later cardiology. Patient was eventually intubated in the emergency department on 11/06. Hospital Course to date: 11/04/2021: Empiric therapy with iv levaquin/vancomycin. COVID PCR pending. Will consult ID. PCCM consulted, will follow recs. Hypotensive this AM, ordered bolus and fluids at 150 cc/hr. May require pressor support if bp does not improve. 11/05/2021: GBS on bcx +, currently on rocephin IV. Currently on bipap due to respiratory distress overnight. Worsening BL opacities on CXR. May be volume overload vs pneumonia. Unfortunately bp too low for lasix at this point. WIll continue levophed and bipap. Once able to tolerate, may do trial of albumin/lasix. Call attempt made to Niraj, no response. Will try again tomorrow to update. 11/06/2021: Decompensated overnight requiring intubation. CXR shows worsening interstitial infiltrates. Currenlty on dopamine, levophed, vasopressin. PICC line ordered. Advised RN to place gamble for I/O monitoring. Would benefit from diuresis but very volume overloaded. Prognosis guarded 11/08: Off sedation this am, remains unresponsive only grimace to pain. Hold all sedatives agents for now, patient is off pressors this am. Hypernatremia from today's lab- D5W X1bag, and low K repleted, repeat lab in the am. Severe constipation also noted from KUB, BR added. 11/09: Sudden SPO2 drop in the 60s this am. Patient was manually bagged and deep suctioned. Patient is currently stable on the vent, repeat CXR with no significant change. D/w CCM Mucomyst and brochodilator added. Patient mentation is unchanged, continue to hold off on sedative agents. Neurology consulted. 11/10: Acute DVT noted on bilateral lower extremity Doppler ultrasound therefore she was started on Lovenox treatment dose. Failed SBT. Hypernatremia and hyperchloremia noted, free water flush adjusted. 11/11: Patient noted to be febrile with increasing of the cytosis, UA/BC sent and CXR ordered. ID escalated antibiotics to cefepime. CXR demonstrated mucous plug, bedside bronchoscopy was performed and O ETT was changed over bougie from 6 cm to 7.5. Patient was noted to have a pneumothorax postprocedure and chest tube was placed. Family updated by [facility]. Free water flush increased and will add Jaswant supplementation. 11/12: Patient not noted to follow commands, hypernatremia worsen/persist, increasing free water flush, potassium and magnesium and phosphorus repleted. Hemoglobin noted to be 7./24.5 from 7.03/12 yesterday. We will continue to trend and monitor. Vent changes per [facility]. Repeat CXR showed no residual pneumothorax. Consider waterseal tomorrow. Given persistent leukocytosis antibiotics escalated to cefepime per ID. 11/13: Remains on cefepime and vancomycin, vent changes per [facility]. Anemia noted and given 1 unit PRBC. And beta-charleen held in setting of Levophed drip infusing. Remains on fentanyl drip. 11/14: Patient put on CPAP trial by [facility], will continue chest tube until after extubation. Will rest on assist control. CT brain was cancelled by radiologist diagnostic and reordered. 11/15: Patient removed chest tube overnight. Will obtain cxr. remains on low dose levo. CTH completed with no acute findings. RT to place on CPAP. 11/16: Hypernatremia/hyperchloremia noted on the increase of day water flushes. Anemia noted and ordered PRBC. asked RT to place on cpap but not done yet 11/17: Patient remains on the vent, awake and following commands. H&H stable s/p 2units PRBCs. GI on consult, no intervention at this time. Will continue protonix gtt and serial H&H Q6hrs. Keep patient NPO for now, D5w added for hypernatremia and NPO status. Plan for IVC filter placement today by Vascular. 11/18: Patient is s/p IVC filter. H&H continue to trend down, hbg 6.1 this am, 1 unit of PRBCs ordered. Plan for possible EGD today by GI. Keep patient NPO, continue PPI drip and serial H&H Q6hrs. Electrolytes repleted, repeat lab in the am 11/19: S/p EGD- larger duodenal ulcer noted, see operative note. GI recommendations noted also noted. H&H stable this am. Keep patient on protonix gtt for now. Will keep patient NPO, continue IVF and serial H&H for now. Electrolytes repleted, repeat labs in the am 11/20: Very agitated and restless this am, fentanyl gtt resumed. Patient remains on protonix gtt, H&H remains stable. Will switch protonix gtt to IV BID, continue carafate and okay to resume meds at this time. Will F/u with GI to see if TF can be resumed. Gamble was reinserted overnight for retention. Electrolytes repleted, repeat in the am. Plan for possible PST today for possible extubation per CCM. 11/21: Patient is now on seroquel and patient's home buspar resumed. Patient more calm this morning, fentanyl gtt is off. H&H remains stable and patient is tolerating TF. Patient had a runs of Vtach/PVCs this am, BB added per Cardio. Continue daily PS and wean trial for possible extubation. 11/22: Back on fentanyl gtt overnight , RASS o to -1, following commands. Patient failed PST this am due to increased work of breathing and low SPO2, ABG pending. Patient is also with worsen pitting edema, lasix is still on hold. Will discuss with cardio and CCM to possibly resume lasix. 11/23: MARIA DEL CARMEN overnight. Patient failed PST again this am. Per CCM plan for possible trach and PEG, hold off on IV lasix for now. General surgery consulted and family is aware of possible Trach and PEG. 11/24: Trach/PEG pending this week, continue SBT/SAT as tolerated. No acute events reported overnight. 11/25: Patient was n.p.o. overnight and will remain n.p.o. tonight for trach/PEG tomorrow morning. She failed to support trial again. KUB obtained due to distended belly. 11/26: Patient scheduled for tracheostomy and PEG tube placement today, has been n.p.o. since midnight. No acute events reported overnight. [facility] ordered simethicone scheduled. 11/27: No acute events reported overnight, patient received trach/PEG yesterday. Has been on feedings since last night. Still awaiting LTAC placement. 11/28: Patient magnesium repleted, repeat a.m. labs, SBT 11/29: Patient complains of chest pain but ECG obtained which showed no acute findings, ordered troponin. Patient failed CPAP yesterday and was trialed again today. levophed was restarted but will aggressively wean 11/30: Patient failed SBT. Continue supportive care. Started gabapentin today 12/01: MARIA DEL CARMEN overnight. Continue daily PST. Case management to arrange possible placement 12/02: Report of dark stools overnight, patient is hemodynamically stable. H&H stable, patient is on PPI. Will continue to trend H&H. Continue daily PST as tolerated. Awaiting LTAC vs SNF placement. 12/03: Hypotensive overnight, requiring low dose pressors. S/p X3 days of gentle diurese. Will continue to monitor, wean off pressors as tolerated for MAP of 65. Patient Failed PST yesterday, case management to follow up with insurance for po ssible LTAC placement. Continue daily PST as tolerated. PT eval and treat ordered. 12/04: Increased agitation and anxiety overnight, remains on buspar and seroquel, trazadone added to promote rest. Patient is now working with PT, keep patient engage and awake during the day so she can rest at night. No BM for over 5 days, BR was adjusted. Patient did not tolerate PST again yesterday, continue daily PST as tolerated. Continue to titrate pressor for MAP above 65. Pending possible LTAC placement, case management to arrange. 12/05: Still not getting much rest overnight, will add melatonin for sleep. Continue to engage patient during the day and promote rest at night. TF was held due to concern for possible bleeding, H&H remains stable and stools normal this am. Resume TF and continue PPI and carafate. Remains on low dose levophed, titrate as tolerated. Continue daily PST. Possible LTAC placement, awaiting approval. 12/06: MARIA DEL CARMEN overnight. Patient rested overnight. Continue supportive measures. Daily PST as tolerated. Awaiting possible LTAC placement 12/07: MARIA DEL CARMEN overnight. Plan for Tpiece trial today. Continue current supportive measures. Possible LTAC placement 12/08: Patient placed on pressure support trial again today, started on Xanax, no acute events reported overnight. Awaiting insurance approval for LTAC. 12/09: Levophed discontinued, LTAC transfer denied, started on midodrine and Lasix, ultrasound chest pending, started on Xanax 0.[address] De León updated family at bedside today. Started on Dilaudid every 3 hours as needed. 12/10: Patient placed on CPAP trial this morning, no acute events reported overnight. Will order ultrasound-guided thoracentesis. 12/11: Patient had a thoracentesis today, will decrease Xanax dosage and continue midodrine and diuresing. Patient failed CPAP today. 12/12: Patient not tolerate CPAP trials today, no acute events reported overnight 12/13: No acute events overnight. continue PSV trials as tolerated. Daughter up dated at bedside 12/14: Patient noted to be anemic today, ordered gastric occult. Patient seems to be oversedated therefore Xanax changed to as needed and fentanyl patch discontinued. We will continue to monitor hyponatremia. 12/15: MARIA DEL CARMEN overnight. s/p 1unit of PRBCs, H&H stable this am, no signs of any active bleeding. Continue daily PST as tolerated. Awaiting placement. 12/16: Hypertensive this am, Midodrine decreased. Continue daily PST. MARIA DEL CARMEN overnight 12/17: Patient Hgb dropped to 6 this am, no s/s of any active bleeding, VSS. Patient received 1unit of PRBC, will continue to trend H&H. Patient was pancultured and back on IV Abx due to persistent fevers yesterday. ID is also back on the case. Continue IV Abx per ID and f/u on cultures data for sensitivity. Patient also failed PST yesterday, continue daily PST as tolerated. Electrolytes repleted, repeat labs in the am. 12/18: Patient blood cultures is growing GPC 4 out 4 bottles. PICC line D/Rivas, patient is already on IV Abx-cefepine and Vanc and ID is following. Patient remains hemodynamically stable. Daily PST as tolerated adn PRN Benzo for anxiety. 12/19: MARIA DEL CARMEN overnight. Culture data noted, continue IV Abx per ID. Orders placed for repeat Bculture. Gamble D/C overnight, patient is voiding. Check bladder scan as needed for retention. Patient failed PST again today. Continue daily PST as tolerated. 12/20: Fevers improved, Cultures +MRSA, on Vanco per ID. Repeat 2D Echo to r/o endocarditis. Patient continue to fail PST, PEEP increased to 8 today. Continue pulmonary hygiene and vent wean per CCM. Sodium tab added for hyponatremia. 12/22: Patient on pressure support trial for approximately 4 hours today, midodrine dosage increased due to hypotension. Lasix discontinued. 12/23: Started on a.m. Seroquel dose, midodrine increased to 10 mg 3 times daily, 500 mL normal saline bolus. 12/24: Seroquel dose changed (25 every morning, 75 nightly). updated at bedside by Dr. De León. CPAP trials as tolerated. Continue vancomycin. Awaiting placement. 12/25: Continue CPAP as tolerated, added gasx for distention. Continue supportive care 12/26: Patient failed PSV this AM. no acute events overnight. 12/27: GI re-consulted due to abdominal distention. No acute events reported overnight. CPAP trials as tolerated. Dr. Mckenna will get a KUB to rule out possible obstruction. 12/28: KUB shows no acute process, CXR shows improvement. CPAP trials as tolerated. 12/29: CT Abd/pelvis noted with moderated bilateral pleural effusion, anasarca, and ascites. X1dose of IV lasix administered. D/w CCM and GI orders plan for thora and paracentesis by IR. Will also start patient on aldactone Qday. Patient is tolerating trickle feeds this am, continue TF and BR adjusted for constipation. Plan of care was discussed with patient and her at the bedside. Thorough discussion on patient's overall poor prognosis and that pat ient will most likely be vent dependent. Patient's voiced understanding of the info given. All questions and concerns were voiced at this time. 12/30: Patient did not tolerate thoracentesis in IR yesterday due to change in LOC and hypoxia. Plan for possible bedside thoracentesis and paracentesis today. Patient remains afebrile. Patient required rn long term care IV abx therapy [id number] left, orders placed for a PICC. Patient remains with sign. Piting edema and anasarca, X1 does of PO Zaroxolyn and 2m of IV lasix given. Electrolytes repleted, repeat lab in the am. 12/31: Tolerated Rt. thoracentesis at the bedside yesterday, 1.4L removed. Patient remains stable on the vent this am, tolerating CPAP today PS dropped to 14. Recent CXR noted, left pleural effusion improved. Patient tolerated gentle diurese yesterday, good urine output reported. D/w CCM hold off on Left thoracentesis today, continue PO Aldactone and additonal zaroxolyn and IV lasix again today. F/u CXR in the am. 01/01: This am CXR noted with worsening bilateral pleural effusion. Patient is stable and tolerating PST this am, however PS is back up to 20 this am. BP is soft this am will hold off on IV diuretic for today, continue PO Aldactone. D/w CCM continue gentle diurese as tolerated. Will reassess in the am. Continue support care. 01/02: MARIA DEL CARMEN overnight. VSS this am, tolerating PST. X1dose of 25% IV Albumin following with 20mg IV Lasix today. Continue daily gentle diurese if hemodynamics tolerate it. Continue to monitor and replace electrolytes as needed 01/03: Abdominal distention and vomiting overnight, 600cc of gastric residual removed, TF held. KUB with no acute abnormality. Reglan added X2days, resume TF, and continue BR. Patient is tolerating PST this am. Hemodynamics remains stable, will continue gentle IV diurese. close monitoring to renal function and electrolytes. 01/04: Tolerating TF, nausea/vomiting resolved, last BM on 01/03. Continue Reglan X1 more day. Patient continue to tolerate PST. D/W CCM continue gentle diurese. F/U CXR in the am. Possible US thoracentesis tomorrow. 01/05: no acute events overnight. scheduled for thoracentesis today but procedure pushed to tomorrow. TF restarted and will be NPO post MN. 01/06: planned thoracentesis today. Working with CM for ltac/snf approval. 01/07: s/p thoracentesis 120 cc appears to have been removed. Pulm recommendations noted, agree with continued diuresis and weaning. Continued planning with CM for ltac/snf placement. 01/08: No new issues. Continue vent weaning per pulmonary. Continuing to work with CM for placement. 01/09: No new issues. Continue vent weaning per pulmonary. Continuing to work with CM for placement. Ordered BMP for tomorrow to check kidney function as patient is currently being diuresed. 01/10: No new issues. Continue vent weaning/diuresis as directed by pulmonary medicine.BMP demonstrates normal renal function and potassium. Sodium and Chloride consistent with prior labs. Will recheck BMP in 2 days. Placement continues to be an issue as patient has been denied at all facilities. Will reasses with CM on wednesday. 01/11: Emesis overnight. Do not suspect that she is obstructed as she had 2 BM reported. Will order Reglan prn, drop TF rate to goal of 30 cc/hr. Will continue to work on placement. 01/12: Per RN patient had reported that she was tired and did not want to persist in her current state of health. D/w patient Niraj at patient bedside and stated that I recommended the patient/family at least talk with hospice to get a better understanding of their care. He was agreeable. I spoke with Ms. Busby who will help set up referral for hospice service so that family can be educated and, if the patient chooses, can pursue this option. 01/13: Continue supportive care. Family discussing about hospice. Continue reinforcement and continue weaning as tolerated. Prognosis is guarded and poor. Patient is clinically stable to transfer to the next level of care has not required any escalation in management. Has been stable on the vent awake alert following commands. 01/14: [id number]. Considering abdominal distention tube feedings hold along with the fact that the patient vomited yesterday. Will obtain a CT abdomen and pelvis to further evaluate placement. Discussed with nursing staff. Awaiting to have a family conversation with the for goals of care discussion again. 01/15: Continue supportive care, tube feed was restarted yesterday and tolerated, will start on simethicone for gas control and management. Patient is clinically stable for all lower level of care and continued weaning from the ventilator to appropriate facility. Family still undecided about goals of care. We will also check labs intermittently. 01/16: Patient today went for Chest tube placement on the right side for recurrent pleural effusion, with the goal of evaluating to see if we can wean off the vent. She has remained on the vent and with some persistent anxiety. she continues to tolerate tube feed. Again poor prognosis discussed with family. 01/17: Status post chest tube, with output of approximately 1880 cc since placement. Will continue to work with pulmonology for vent weaning. 01/18: Only tolerated 1 hr of t piece trial yesterday per RT. Patient PaO2 50s on abg last night. Will continue to work with pulmonary medicine for vent weaning. abg, cbc, bmp, xr chest ordered for am. 01/19: On t piece trial this AM. labs reviewed. CXR reviewed and appears stable with no new changes. AB.42/47.8/112.3/30.9. Will follow pulmonary recommendations and plan to continue to wean off of vent. 01/20: Per CM, [facility] declined patient admission as there are T stated the patient was not amenable from the vent. Yesterday patient had tolerated T-piece trial for approximately 12 hours. Today patient only tolerated for 45 minutes. Had desatted and stated that she was in pain during today's trial. Output yesterday from chest tube 1000 cc. Today it is 100 cc thus far. Will obtain chest x-ray tomorrow. 01/21: XR chest demonstrate mild improvement in pulmonary edema. Chest tube OP: 400 cc on 01/20 and 450 cc thus far today. On CPAP trial this am. Hopefully patient can eventually be weaned off of vent. Placement continues to be a challenge as patient has been denied at all facilities thus far, working with CM who has been in frequent contact with [facility]. 01/22: Yesterday the patient had lasted approximately 10 hours on T-piece trial. Output from chest tube approximately 525 cc yesterday. Thus far today patient has had 400 cc. Will follow with pulmonology regarding overall plan for chest tube and weaning patient off ventilator. 01/23: chest tube output 838 cc. Follow pulmonology plan re: chest tube and vent weaning. Placement remains challenging. 01/24: Very fatigue on t - piece trial yesterday afternoon, placed on full MV support. Will re-attempt today poss. Patient will complete Vancomycin course for MRSA tx on Friday 01/26. She has been afebrile sine 01/02. Current barriers to placement are weaning patient off of ventilator and removing chest tube as thus far all facilities have declined the patient. 01/25: AM CXR shows worsening pulmonary edema. On t-piece trial this AM. Patient still continues to have output from chest tube. Will follow pulmonary recs today. 01/26: Difficulty breathing this AM. Chest tube OP approx 1L yesterday. Ordered Albumin due to hypotension noted this AM. Lasix 20 mg IV in addition to po lasix ordered for pulmonary edema. Labs ordered. 01/27: Antibiotics completed for MRSA bacteremia yesterday. Will start po bactrim for suppression per ID recommendation. Remains on MV support this AM. Blood pressure improved..actually hypertensive. Chest tube OP 50 cc yesterday. Metabolic profile noted, BUN slightly elevated but Cr in range. Can continue with lasix diuresis. Will likely need pleurx longterm at some point in place of the chest tube. 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 01/28: Continue current ATP to vapotherm, agree with possible pluerex catheter for intermittent drainage/ following review of xray will trial Bumex for diuresis. Poor prognosis. 01/29: Patient seen and examined doing well diuresing appropriately with a change to Bumex therapy. Discussed with administrative and program specialist still with good volume output fluid overload will try to diurese over the weekend. We will check a chest x- ray in the morning to see improvement in the lungs and probably repeat on Wednesday. Anticipate discharge to SNF on Wednesday clinically she is improving likely will not need a Pleurx catheter on discharge. Prognosis remains guarded. 01/30: cxr shows unchanged, but clinically patient is stable, no increase oxygen demand, also negative fluid balance. Will continue bumex, monitor electrolytes and renal function, check cxr again on wednesday with anticipation to remove Chest tube soon and hopefully discharge to SNF on wednesday 01/31: Patient doing clinically well, will recheck chest xray in am, continue bumex, monitor electrolytes, wean off oxygen as tolerated. 02/01: Continue supportive care, will change Bumex to PO in anticipation for discharge, Await pulmonary input if chest tube can be clamped today for possible removal tomorrow. 02/02: Patient seen and examined, awaiting Chest tube removal. If patient continues to show improvement will plan for discharge in 24 to 48hrs after Chest tube removed Can be discharged to SNF with Bumex PO. 02/03: D/w pulmonology Dr Mendoza. Plan to remove chest tube today. Trach to be downsized. CM working on snf placement. Neuro : Anxiety, chronic pain -Neurology consulted, appreciate recommendations -CT brain showed no acute events -EEG interpreted as abnormal record due to diffuse slowing noted throughout the recording, suggestive of encephalopathic process and/or drug effect, possibilities of postictal state cannot be totally excluded. Clinical correlation is in order -MRI brain not obtained-> patient has metal in her body -Repeat CT head with no acute findings -Reorientation as needed -Ammonia 42, B12 1823, TSH 1.5 -BuSpar, Seroquel, [place], gabapentin -prn xanax and Dilaudid Cardio: Acute Heart failure with reduced EF, h/o chronic heart block s/p PPM, HTN, CAD s/p PCI (2004), Moderate pulmonary HTN, cardiomyopathy -s/p vasopressor support with levophed -11/04 echocardiogram shows EF 30 to 35%, Moderate pulmonary HTN RVSP 49 -3/4 echo with 35-40% EF -Cardiology consulted, appreciate recommendations -Continue beta-charleen and statin therapy -Midodrine (titrate as needed) -Not on aspirin due to allergy -Blood pressure monitoring per protocol -As needed nitroglycerin Resp: Acute hypoxic respiratory failure secondary to bilateral pneumonia, recur rent bilateral pleural effusion s/p rt sided chest tube. Right pneumothorax (resolved). -COVID-19 PCR negative -Intubated on 11/06 with 6.00 ETT at 18 at the lip and changed over bougie on 11/11-7.50 ETT at 20 at the lip -See RT notes for titration -PSV as tolerated -Surgery consult for trach -Received trach/PEG on 11/26 -S/p bedside bronchoscopy on 11/11 complicated by pneumothorax -S/p chest tube placement for right pneumothorax and dislodgment by patient on -ABG/CXR per CCM -VAP bundle -Right chest wall ultrasound showed pleural effusion s/p chest tube -12/11 US thoracentesis removed 1L fluid -12/29 US thoracentesis removed 1.4L fluid -01/06 thoracentesis planned -01/16 right-sided chest tube placed by IR -SPO2 monitoring GI: S/p GI bleed, duodenal ulcer, transaminitis -GI consulted, appreciate recommendations-signed off -Nutrition consult for tube feeding, currently on nepro TF 45 cc/hr, dropped to 30 cc/hr due to concerns for emesis. -BR: Senokot -s/p peg 11/26 -H2 charleen -Carafate -24-hour +428 ml -10/2021 Gastric occult positive -> EGD-> duodenal ulcer -12/14 occult stool positive - reglan prn. : Urinary retention (resolved), hyponatremia, hypochloremia -Strict intake and output -Trend BMP ID: Septic shock (POA-resolved), bilateral pneumonia, MRSA bacteremia/pna -Infectious disease consulted, appreciate recommendations -COVID-19 PCR negative -Presented with fevers, leukocytosis and hypotension -11/04 blood cultures positive with a group B strep bacteremia 12/19 however repeat blood cultures on the with no growth to date -Echo showed no evidence of vegetation -repeat echo showed EF 35-40 % with no vegetations -ABX therapy: IV vancomycin for 4 weeks (12/16-01/26) -Monitor WBC and fever curve -Bedside bronchoscopy for mucous plug on CXR 11/11 -f/u blood cultures Heme: Acute DVT in the right external iliac vein, common femoral vein, superior aspect of femoral vein, Acute microcytic anemia -Evidenced on bilateral upper lower extremity ultrasound -S/p 7 unit PRBC -Trend CBC -Transfuse for hemoglobin less than 7 -heparin gtt dc d/t anemia -S/p IVC filter Endo: h/o DM and hypothyroidism -Continue home Synthroid -SSI -Accu-Cheks every 6 -Avoid hypoglycemia The high probability of a clinically significant, sudden or life threatening deterioration of the [multi] system(s) required my full and direct attention, intervention and personal management. The aggregate critical care time was [60] minutes. This time is in addition to time spent performing reported procedures but includes the following: [x] Data Review and interpretation [x] Patient assessment and monitoring of vital signs [x] Documentation [x] Medication orders and management History Interval history: Patient seen and examined, resting comfortable. On ATC doing well. Still with good urine output and negative fluid balance with no worsening respiratory dist ress. Slightly anxious this AM on bedside encounter . RN to admin joannex. Hospitalist Physical - Physical exam Narrative exam: Physical Exam: VITAL SIGNS: Reviewed. GENERAL: The patient appears normally developed, Vital signs as documented. Frail appearing elderly woman. HEAD: No signs of head trauma. EYES: Pupils are equal. Extraocular motions intact. EARS: Hearing grossly intact. MOUTH: Oropharynx is normal. NECK: No adenopathy, no JVD. trach collar overlying tracheostomy tube in place. CHEST: Bl rhonchi. rt sided chest tube in place. CARDIAC: Regular rate and rhythm. S1 and S2, without murmurs, gallops, or rubs. VASCULAR: No Edema. Peripheral pulses normal and equal in all extremities. ABDOMEN: Soft, non tender and non distended. No rebound or guarding, and no masses palpated. Bowel Sounds normal. peg tube in place MUSCULOSKELETAL: Good range of motion of all major joints. Extremities without clubbing, cyanosis or edema. NEUROLOGIC EXAM: Alert and oriented x 4. no focal sensory or strength deficits. PSYCHIATRIC: anxious appearing SKIN: detail exam as documented in skin assessment - Constitutional Vitals: Temp Pulse Resp BP Pulse Ox 98.7 F 69 14 144/37 100 02/03/22 11:49 02/03/22 13:00 02/03/22 13:00 02/03/22 13:00 02/03/22 13:00 General appearance: Present: no acute distress HEART Score - HEART Score Troponin: Troponin T 0.078 ng/mL (0.00-0.029) H 01/15/22 Unknown Results - Labs CBC & Chem 7: 02/03/22 04:00 02/03/22 04:00 Labs: Laboratory Last Values WBC 8.7 K/mm3 (4.5-11.0) 02/03/22 04:00 RBC 3.20 M/mm3 (3.65-5.03) L 02/03/22 04:00 Hgb 8.9 gm/dl (10.1-14.3) L 02/03/22 04:00 Hct 26.5 % (30.3-42.9) L 02/03/22 04:00 MCV 83 fl (79-97) 02/03/22 04:00 MCH 28 pg (28-32) 02/03/22 04:00 MCHC 33 % (30-34) 02/03/22 04:00 RDW 18.6 % (13.2-15.2) H 02/03/22 04:00 Plt Count 229 K/mm3 (140-440) 02/03/22 04:00 Lymph % (Auto) 25.6 % (13.4-35.0) 01/26/22 10:16 [place] % (Auto) 4.5 % (0.0-7.3) 01/26/22 10:16 Eos % (Auto) 4.5 % (0.0-4.3) H 01/26/22 10:16 Baso % (Auto) 0.7 % (0.0-1.8) 01/26/22 10:16 Lymph # (Auto) 3.2 K/mm3 (1.2-5.4) 01/26/22 10:16 [place] # (Auto) 0.6 K/mm3 (0.0-0.8) 01/26/22 10:16 Eos # (Auto) 0.6 K/mm3 (0.0-0.4) H 01/26/22 10:16 Baso # (Auto) 0.1 K/mm3 (0.0-0.1) 01/26/22 10:16 Add Manual Diff Complete 01/19/22 04:50 Total Counted 100 01/15/22 14:36 Seg Neutrophils % 64.7 % (40.0-70.0) 01/26/22 10:16 Seg Neuts % (Manual) 82.0 % (40.0-70.0) H 01/15/22 14:36 Band Neutrophils % 0 % 01/15/22 14:36 Lymphocytes % (Manual) 11.0 % (13.4-35.0) L 01/15/22 14:36 Reactive Lymphs % (Man) 0 % 01/15/22 14:36 Monocytes % (Manual) 5.0 % (0.0-7.3) 01/15/22 14:36 Eosinophils % (Manual) 1.0 % (0.0-4.3) 01/15/22 14:36 Basophils % (Manual) 1.0 % (0.0-1.8) 01/15/22 14:36 Metamyelocytes % 0 % 01/15/22 14:36 Myelocytes % 0 % 01/15/22 14:36 Promyelocytes % 0 % 01/15/22 14:36 Blast Cells % 0 % 01/15/22 14:36 Nucleated RBC % Not Reportable 01/15/22 14:36 Seg Neutrophils # 8.2 K/mm3 (1.8-7.7) H 01/26/22 10:16 Seg Neutrophils # Man 8.8 K/mm3 (1.8-7.7) H 01/15/22 14:36 Band Neutrophils # 0.0 K/mm3 01/15/22 14:36 Lymphocytes # (Manual) 1.2 K/mm3 (1.2-5.4) 01/15/22 14:36 Abs React Lymphs (Man) 0.0 K/mm3 01/15/22 14:36 Monocytes # (Manual) 0.5 K/mm3 (0.0-0.8) 01/15/22 14:36 Eosinophils # (Manual) 0.1 K/mm3 (0.0-0.4) 01/15/22 14:36 Basophils # (Manual) 0.1 K/mm3 (0.0-0.1) 01/15/22 14:36 Metamyelocytes # 0.0 K/mm3 01/15/22 14:36 Myelocytes # 0.0 K/mm3 01/15/22 14:36 Promyelocytes # 0.0 K/mm3 01/15/22 14:36 Blast Cells # 0.0 K/mm3 01/15/22 14:36 WBC Morphology Not Reportable 01/15/22 14:36 Hypersegmented Neuts Not Reportable 01/15/22 14:36 Hyposegmented Neuts Not Reportable 01/15/22 14:36 Hypogranular Neuts Not Reportable 01/15/22 14:36 Smudge Cells Not Reportable 01/15/22 14:36 Toxic Granulation Not Reportable 01/15/22 14:36 Toxic Vacuolation Not Reportable 01/15/22 14:36 Dohle Bodies Not Reportable 01/15/22 14:36 Pelger-Huet Anomaly Not Reportable 01/15/22 14:36 Irina Rods Not Reportable 01/15/22 14:36 Platelet Estimate Consistent w auto 01/15/22 14:36 Clumped Platelets Not Reportable 01/15/22 14:36 Plt Clumps, EDTA Not Reportable 01/15/22 14:36 Large Platelets Not Reportable 01/15/22 14:36 Giant Platelets Not Reportable 01/15/22 14:36 Platelet Satelliting Not Reportable 01/15/22 14:36 Plt Morphology Comment Not Reportable 01/15/22 14:36 RBC Morphology Not Reportable 01/15/22 14:36 Dimorphic RBCs Not Reportable 01/15/22 14:36 Polychromasia Not Reportable 01/15/22 14:36 Hypochromasia Not Reportable 01/15/22 14:36 Poikilocytosis Not Reportable 01/15/22 14:36 Anisocytosis 1+ 01/15/22 14:36 Microcytosis Not Reportable 01/15/22 14:36 Macrocytosis Not Reportable 01/15/22 14:36 Spherocytes Not Reportable 01/15/22 14:36 Pappenheimer Bodies Not Reportable 01/15/22 14:36 Sickle Cells Not Reportable 01/15/22 14:36 Target Cells Not Reportable 01/15/22 14:36 Tear Drop Cells Not Reportable 01/15/22 14:36 Ovalocytes Not Reportable 01/15/22 14:36 Helmet Cells Not Reportable 01/15/22 14:36 Odonnell-Powderly Bodies Not Reportable 01/15/22 14:36 [place] Rings Not Reportable 01/15/22 14:36 Malcom Cells Not Reportable 01/15/22 14:36 Bite Cells Not Reportable 01/15/22 14:36 Crenated Cell Not Reportable 01/15/22 14:36 Elliptocytes Not Reportable 01/15/22 14:36 Acanthocytes (Spur) Not Reportable 01/15/22 14:36 Rouleaux Not Reportable 01/15/22 14:36 Hemoglobin C Crystals Not Reportable 01/15/22 14:36 Schistocytes Not Reportable 01/15/22 14:36 Malaria parasites Not Reportable 01/15/22 14:36 Godfrey Bodies Not Reportable 01/15/22 14:36 Hem Pathologist Commnt No 01/15/22 14:36 PT 16.9 Sec. (12.2-14.9) H 01/06/22 04:06 INR 1.23 (0.87-1.13) H 01/06/22 04:06 APTT 41.8 Sec. (24.2-36.6) H 12/30/21 08:30 D-Dimer 2655.00 ng/mlDDU (0-234) H 11/11/21 04:28 ABG pH 7.488 pH Units (7.350-7.450) H 01/25/22 12:20 ABG pCO2 38.2 mm Hg 01/25/22 12:20 ABG pO2 58.9 mm Hg (80.0-90.0) L 01/25/22 12:20 ABG HCO3 28.3 mmol/L (20.0-26.0) H 01/25/22 12:20 ABG O2 Saturation 94.9 % (95.0-99.0) L 01/25/22 12:20 ABG O2 Content 11.4 (0.0-44) 01/25/22 12:20 ABG Base Excess 4.7 mmol/L (-2.0-3.0) H 01/25/22 12:20 ABG Hemoglobin 8.7 gm/dl (12.0-16.0) L 01/25/22 12:20 ABG Carboxyhemoglobin 1.8 % (0.0-5.0) 01/25/22 12:20 ABG Methemoglobin 0.5 % (0.0-1.5) 01/25/22 12:20 Oxyhemoglobin 92.7 % (95.0-99.0) L 01/25/22 12:20 FiO2 35 % 01/25/22 12:20 Sodium 136 mmol/L (137-145) L 02/03/22 04:00 Potassium 4.4 mmol/L (3.6-5.0) 02/03/22 04:00 Chloride 95.7 mmol/L (98-107) L 02/03/22 04:00 Carbon Dioxide 28 mmol/L (22-30) 02/03/22 04:00 Anion Gap 17 mmol/L 02/03/22 04:00 BUN 42 mg/dL (7-17) H 02/03/22 04:00 Creatinine 0.8 mg/dL (0.6-1.2) 02/03/22 04:00 Estimated GFR > 60 ml/min 02/03/22 04:00 BUN/Creatinine Ratio 53 % 02/03/22 04:00 Glucose 114 mg/dL (65-100) H 02/03/22 04:00 POC Glucose 88 mg/dL (70-105) 02/03/22 11:36 Lactic Acid 3.70 mmol/L (0.7-2.0) H* 11/03/21 22:32 Calcium 9.1 mg/dL (8.4-10.2) 02/03/22 04:00 Phosphorus 4.00 mg/dL (2.5-4.5) 01/26/22 10:16 Magnesium 1.70 mg/dL (1.7-2.3) 01/26/22 10:16 Ferritin 52.6 ng/mL (10.0-200.0) 11/05/21 06:11 Total Bilirubin 0.50 mg/dL (0.1-1.2) 11/17/21 05:56 Direct Bilirubin < 0.2 mg/dL (0-0.2) 11/11/21 04:28 Indirect Bilirubin 0.1 mg/dL 11/11/21 04:28 AST 36 units/L (5-40) 11/17/21 05:56 ALT 47 units/L (7-56) 11/17/21 05:56 Alkaline Phosphatase 107 units/L (35-129) 11/17/21 05:56 Ammonia 42.0 umol/L (25-60) 11/10/21 14:08 Lactate Dehydrogenase 187 units/L (91-180) H 11/05/21 06:11 Troponin T 0.078 ng/mL (0.00-0.029) H 01/15/22 Unknown C-Reactive Protein 22.20 mg/dL (0.00-1.30) H 11/05/21 06:11 NT-Pro-B Natriuret Pep 7895 pg/mL (0-900) H 11/03/21 22:32 Total Protein 5.1 g/dL (6.3-8.2) L 11/17/21 05:56 Albumin 2.2 g/dL (3.9-5) L 11/17/21 05:56 Albumin/Globulin Ratio 0.8 % 11/17/21 05:56 Triglycerides 72 mg/dL (2-149) 01/15/22 21:07 Cholesterol 103 mg/dL (50-199) 01/15/22 21:07 LDL Cholesterol Direct 44 mg/dL (50-130) L 01/15/22 21:07 HDL Cholesterol 46 mg/dL (40-59) 01/15/22 21:07 Cholesterol/HDL Ratio 2.23 % 01/15/22 21:07 Vitamin B12 1823 pg/mL (211-911) H 11/10/21 14:08 TSH 1.510 mlU/mL (0.270-4.200) 11/10/21 14:08 Urine Color Shamika (Yellow) 01/23/22 09:36 Urine Turbidity Turbid (Clear) 01/23/22 09:36 Urine pH 7.0 (5.0-7.0) 01/23/22 09:36 Ur Specific Leslie 1.011 (1.003-1.030) 01/23/22 09:36 Urine Protein <15 mg/dl mg/dL (Negative) 01/23/22 09:36 Urine Glucose (UA) Neg mg/dL (Negative) 01/23/22 09:36 Urine Ketones Neg mg/dL (Negative) 01/23/22 09:36 Urine Blood Sm (Negative) 01/23/22 09:36 Urine Nitrite Neg (Negative) 01/23/22 09:36 Urine Bilirubin Neg (Negative) 01/23/22 09:36 Urine Urobilinogen 2.0 mg/dL (<2.0) 01/23/22 09:36 Ur Leukocyte Esterase Lg (Negative) 01/23/22 09:36 Urine WBC (Auto) 16.0 /HPF (0.0-6.0) H 01/23/22 09:36 Urine RBC (Auto) 32.0 /HPF (0.0-6.0) 01/23/22 09:36 U Epithel Cells (Auto) 1.0 /HPF (0-13.0) 01/23/22 09:36 Urine Bacteria (Auto) 4+ /HPF (Negative) 01/23/22 09:36 Urine Mucus Few /HPF 01/23/22 09:36 Urine Yeast (Budding) 3+ /HPF 01/23/22 09:36 Urine Sperm Few /HPF ([employer]) 01/23/22 09:36 Fluid Type Pleural 01/06/22 13:40 Fluid Color Yellow 01/06/22 13:40 Fluid Appearance Hazy 01/06/22 13:40 Fluid WBC 273 /mm3 01/06/22 13:40 Fluid RBC 45 /mm3 01/06/22 13:40 Fluid Seg Neutrophils 47.0 % 01/06/22 13:40 Fluid Lymphocytes 22.0 % 01/06/22 13:40 Fluid Monocytes 10.0 % 01/06/22 13:40 Fluid Eosinophils 19.0 % 01/06/22 13:40 Fluid Basophils 2.0 % 01/06/22 13:40 Fluid Glucose 96 mg/dL (40-70) H 01/06/22 13:40 Fluid Total Protein < 3.0 (15.0-45.0) L 01/06/22 13:40 Fluid LDH 149 01/06/22 13:40 Vancomycin Trough 11.8 ug/mL (5.0-20.0) 01/22/22 10:14 Random Vancomycin 10.5 ug/mL (0-40.0) 01/04/22 05:00 Coronavirus (PCR) Negative (Negative) 11/10/21 08:30 Blood Type O POSITIVE 12/14/21 10:30 Antibody Screen Negative 12/14/21 10:30 Crossmatch See Detail 12/14/21 10:30 Gamble/IV: Voiding Method External Female Catheter Active Medications - Current Medications Current Medications: Generic Name Dose Route Start Last Admin Trade Name Freq PRN Reason Stop Dose Admin Acetaminophen 650 mg 12/14/21 04:12 01/26/22 03:19 Acetaminophen 325 Mg/10.15 Ml Oral Liqd Unit Dose FEEDTUBE 650 mg Q6H PRN Administration Non Cardiac Pain or Temp>100.5 Hydrocodone Bitart/Acetaminophen 1 each 11/21/21 10:00 02/03/22 13:09 Hydrocodone/Acetaminophen 10-325mg Tab FEEDTUBE 1 each TID YOSSI Administration Alprazolam 0.25 mg 01/22/22 03:00 02/03/22 09:31 Alprazolam 0.5 Mg Tab FEEDTUBE 0.25 mg Q8H PRN Administration Agitation Lipase/Protease/Amylase 1 each 11/08/21 11:09 Lipase 10,500/Protease 25,000/Amylase 43,750 (Units) Dr Lema FEEDTUBE PRN PRN For Clogged Feeding Tube Bumetanide 1 mg 02/02/22 10:00 02/03/22 09:30 Bumetanide 1 Mg Tab FEEDTUBE 1 mg QDAY YOSSI Administration Buspirone HCl 7.5 mg 12/30/21 10:00 02/03/22 09:30 Buspirone 5 Mg Tab FEEDTUBE 7.5 mg BID YOSSI Administration Dextrose 50 ml 01/16/22 14:00 Dextrose 50% In Water (25gm) 50 Ml Syringe IV Q30MIN PRN Hypoglycemia Protocol Docusate Sodium 100 mg 12/30/21 10:00 02/03/22 09:20 Docusate Sodium 100 Mg/10 Ml Oral Liqd FEEDTUBE Not Given BID YOSSI Gabapentin 100 mg 01/22/22 10:00 02/03/22 09:30 Gabapentin 500 Mg/10 Ml Oral Liqd FEEDTUBE 100 mg QDAY YOSSI Administration Hydrophilic Ointment 1 applic 11/06/21 04:02 Lip Therapy Vaseline TP Q2HR PRN Dry Lips Lansoprazole 30 mg 11/24/21 22:00 02/03/22 09:30 Lansoprazole 30 Mg Solutab FEEDTUBE 30 mg BID YOSSI Administration Levothyroxine Sodium 125 mcg 12/31/21 06:00 02/03/22 05:01 Levothyroxine 125 Mcg Tab FEEDTUBE 125 mcg DAILY@0600 YOSSI Administration Melatonin 5 mg 12/05/21 22:00 02/02/22 21:03 Melatonin 5 Mg Tab PO 5 mg QHS YOSSI Administration Metoclopramide HCl 10 mg 01/11/22 13:25 01/21/22 21:43 Metoclopramide 10 Mg/2 Ml Inj IV 10 mg Q6H PRN Administration Nausea And Vomiting Metoprolol Tartrate 6.25 mg 12/30/21 10:00 02/03/22 09:30 Metoprolol Tartrate 25 Mg Tab FEEDTUBE 6.25 mg BID YOSSI Administration Midodrine 10 mg 01/21/22 08:00 02/03/22 13:10 Midodrine 5 Mg Tab FEEDTUBE Not Given TID@0800,1200,1600 YOSSI Multi-Ingred Cream/Lotion/Oil/Oint 1 applic 11/06/21 04:02 Mineral Oil/Petrolatum, White Ophth Oint 3.5 Gm OU Q4HR PRN Dry Eye(s) Ondansetron HCl 4 mg 12/05/21 10:00 01/20/22 22:10 Ondansetron 4 Mg/2 Ml Inj IV 4 mg Q8H PRN Administration Nausea And Vomiting Polyethylene Glycol 17 gm 12/30/21 10:00 02/03/22 09:20 Polyethylene Glycol 3350 17 Gm Powder FEEDTUBE Not Given QDAY YOSSI Pravastatin Sodium 20 mg 12/30/21 22:00 02/02/22 21:03 Pravastatin 20 Mg Tab FEEDTUBE 20 mg QHS YOSSI Administration Quetiapine Fumarate 25 mg 12/30/21 10:00 02/03/22 09:31 Quetiapine 25 Mg Tab FEEDTUBE 25 mg QAM YOSSI Administration Quetiapine Fumarate 50 mg 12/30/21 22:00 02/02/22 21:03 Quetiapine 25 Mg Tab FEEDTUBE 50 mg QHS YOSSI Administration Senna 17.6 mg 12/29/21 11:00 02/03/22 09:21 Sennosides Oral Liqd 8.8 Mg/5 Ml Oral Liqd FEEDTUBE Not Given Q12HR YOSSI Simethicone 80 mg 01/15/22 15:06 01/15/22 21:10 Simethicone 80 Mg Chew Tab PO 80 mg PC PRN Administration Gas pain Simple Syrup 15 ml 11/08/21 11:09 Simple Syrup 15 Ml FEEDTUBE PRN PRN Hypoglycemia Simple Syrup 30 ml 11/08/21 11:09 Simple Syrup 15 Ml FEEDTUBE PRN PRN Hypoglycemia Sodium Bicarbonate 325 mg 11/08/21 11:09 01/09/22 20:25 Sodium Bicarbonate 325 Mg Tab FEEDTUBE 325 mg PRN PRN Administration For Clogged Feeding Tube Sodium Chloride 10 ml 11/04/21 10:00 02/03/22 09:32 Sodium Chloride 0.9% 10 Ml Flush Syringe IV 10 ml BID YOSSI Administration Sodium Chloride 10 ml 11/04/21 02:03 01/09/22 06:35 Sodium Chloride 0.9% 10 Ml Flush Syringe IV 10 ml PRN PRN Administration LINE FLUSH Spironolactone 25 mg 12/30/21 10:00 02/03/22 09:31 Spironolactone 25 Mg Tab FEEDTUBE 25 mg QDAY YOSSI Administration Sucralfate 1 gm 12/30/21 12:00 02/03/22 13:09 Sucralfate 1 Gm/10 Ml Oral Liqd FEEDTUBE 1 gm Q6HR YOSSI Administration Trazodone HCl 50 mg 12/04/21 22:00 02/02/22 21:03 Trazodone 50 Mg Tab PO 50 mg QHS YOSSI Administration Trimethoprim/Sulfamethoxazole 160 mg 01/27/22 13:00 02/03/22 09:27 Sulfamethoxazole/Trimethoprim 200-40 Mg/5 Ml Oral Liqd 30 Ml PO 160 mg Q24HR YOSSI Administration Protocol Nutrition/Malnutrition Assess - Dietary Evaluation Nutrition/Malnutrition Findings: Nutrition Notes Start: 11/04/21 17:16 Freq: Status: Active Protocol: Document 02/02/22 17:00 ISABELL (Rec: 02/02/22 17:46 ISABELL [id number]) Nutrition Notes Initial or Follow up Reassessment Current Diagnosis Coronary Artery Disease, Diabetes,Hypertension Other Pertinent Diagnosis CHB s/p PPM, HFrEF, s/p COVID- 19/Pneumonia, DVT R-EIV/CFV, Anxiety. Current Diet TF-Vital AF 1.2 @ 35ml/hr ( since D 01/16). Labs/Tests 02/02: Na 135, Cl 94.6, BUN 38 . Pertinent Medications 75659: Levothyroxine, others nutritionally unremarkable. Height 5 ft Weight 56.9 kg [place] Body Weight (kg) 45.45 BMI 24.5 Weight change and time frame 5.7 Kg body weight loss in 1 week reported. Weight Status Appropriate Subjective/Other Information RD consult for routine F/U on TF tolerance. TF continues as prescribed and well tolerated, according to ADL notes. [employer] note on 02/02/22 14:32: Received orders to perform a MBS for immediate results of the patient's swallowing function. MBS is deferred for this date as the Radiologist is not available. Will perform in 2 hours. Pt clinically stable, plans to remove chest tube and discharge to SNF on 02/03-, according to Progress notes. Percent of energy/protein needs met: Prescribed Vital AF 1.2 Tamir @ 35 ml/hr provides for energy/ protein needs (1,008 Kcal/63 g ) during LOS, 88% Kcal; 88% AA ; additionally, Dietary Supplements will support wound healing processes with 190 Kcal and 5 g of protein. Burn Absent Trauma Absent GI Symptoms None Difficulty In Swallowing Food Allergy No Skin Integrity/Comment Lower Extremities Pressure Ulcer. Current % PO Other Minimum of two criteria No Interpretation of Weight Loss (severe) >10% in 6 months #1 Nutrition Diagnosis Inadequate oral intake Diagnosis Progress(for reassessment Continues documentation) Is patient on ventilator? Yes Is Patient Ambulatory and/or Out of Bed No REE-([facility]-confined to bed) 1141.247 Calculation Used for Recommendations [facility] Additional Notes Protein: 1.2-2 g/Kg ABW; 72- 120 g/day. Fluids: 1 ml/Kcal, or as per MD. Nutrition Intervention Nutrition Support: Continue Vital AF 1.2 Tamir @ 35 ml/hr. Flush: 50 ml water Q 4 hr, or as per MD. Kcal 1,008 Protein (gm) 63 Carbohydrates (gm) 45 Fat (gm) 45 Fluid (mL) 681 Fiber (gm) 4 % RDI: 88% Kcal; 88% AA. Add Supplement/Snack (indicate name/kcal 28.8 g Jaswant; BID /protein ) Provides kCal: 190 Provides Protein (gm) 5 Goal #1 Provide at least 75% of energy /protein needs through Enteral Feeding during LOS. Goal #2 Support, through dietary supplementation, wound healing processes during LOS. Goal #3 Maintain body weight within +/ -3% of admission body weight during LOS. Follow-Up By: 02/09/22 Additional Comments Continue monitoring TF tolerance and BM, and Mechanical Ventilation status.
[2022-02-03] MEDS: traZODone 50 MG TAB PO SCH (21:46)
[2022-02-03] MEDS: PRAVASTATIN 20 MG TAB FEEDTUBE SCH (21:46)
[2022-02-03] MEDS: MELATONIN 5 MG TAB PO SCH (21:46)
[2022-02-04] MEDS: SUCRALFATE 1 GM/10 ML ORAL LIQD FEEDTUBE SCH ×4 (05:50→23:00)
[2022-02-04] MEDS: LEVOTHYROXINE 125 MCG TAB FEEDTUBE SCH (05:50)
[2022-02-04] MEDS: GABAPENTIN 500 MG/10 ML ORAL LIQD FEEDTUBE SCH (09:12)
[2022-02-04] MEDS: LANSOPRAZOLE 30 MG SOLUTAB FEEDTUBE SCH ×2 (09:13→22:01)
[2022-02-04] MEDS: METOPROLOL TARTRATE 25 MG TAB FEEDTUBE SCH ×2 (09:13→22:03)
[2022-02-04] MEDS: DOCUSATE SODIUM 100 MG/10 ML ORAL LIQD FEEDTUBE SCH ×2 (09:13→22:02)
[2022-02-04] MEDS: QUEtiapine 25 MG TAB FEEDTUBE SCH ×2 (09:14→22:01)
[2022-02-04] MEDS: HYDROcodone/ACETAMINOPHEN 10-325MG TAB FEEDTUBE SCH ×3 (09:14→22:00)
[2022-02-04] MEDS: SPIRONOLACTONE 25 MG TAB FEEDTUBE SCH (09:14)
[2022-02-04] MEDS: BUMETANIDE 1 MG TAB FEEDTUBE SCH (09:15)
[2022-02-04] MEDS: busPIRone 5 MG TAB FEEDTUBE SCH ×2 (09:15→22:01)
[2022-02-04] MEDS: MIDODRINE 5 MG TAB FEEDTUBE SCH ×3 (09:15→17:34)
[2022-02-04] MEDS: SULFAMETHOXAZOLE/TRIMETHOPRIM 200-40 MG/5 ML ORAL LIQD 30 ML PO SCH (09:15)
[2022-02-04] MEDS: SENNOSIDES ORAL LIQD 8.8 MG/5 ML ORAL LIQD FEEDTUBE SCH ×2 (09:16→22:03)
[2022-02-04] MEDS: POLYETHYLENE GLYCOL 3350 17 GM POWDER FEEDTUBE SCH (09:44)
--- NOTE | 2022-02-04 13:00 | Progress Note ---
Assessment and Plan Gram positive Bacteremia (MRSA) Acute respiratory failure with hypoxia, now on MVS Acute microcytic anemia Bilateral pneumonia DVT Left pleural effusion Cardiomyopathy EF 30-35% Moderate pulmonary HTN - encouraged increased ambulation - needs outpatient ENT evaluation re: tracheostomy tube change out - no new issues otherwise, continue care as below; - continue thyroid replacement therapy with Levoxyl - continue Bumex 1 mg p.o. daily - follow I's & O's and monitor electrolytes - continue Seroquel - Vancomycin carmita-escalated to Bactrim - continue to wean supplemental oxygen for target O2 sat's > 90% acutely - aspiration precautions - continue bronchodilators with routine trach care and pulmonary hygiene per RT - wean per pulmonary driven protocols otherwise - avoid nephrotoxins, renally dose all medications - continue accuchecks with glycemic control per SSI for target blood glucose < 180 mg/dL - continue to avoid benzodiazepine's, reduce the possibility of delirium - prn analgesia per pain score - Maintenance of sleep-wake cycle, avoid delirium - continue enteral nutritional support at goal rate as tolerated - G.I. & VTE prophylaxis - PT/OT/ROM exercises - continue mobility protocols for pressure ulcer prophylaxis - Monitor hemodynamics closely - continue other care per attending / other consultants - discharge planning ongoing concurrently COVID SPECIFIC INTERVENTIONS - COVID-19 PCR negative .... Re-evaluate in am & prn Subjective Date of service: 02/04/22 Principal diagnosis: Septic shock; AHRF; Anemia; Pneumonia; pleural effusion; HFrEF; Pulm HTN Interval history: Patient is seen today for: Septic shock; Acute hypoxemic respiratory failure; Anemia; Bilateral pneumonia; Left pleural effusion; HFrEF 30-35%; Pulm HTN RVSP 49 Seen and examined at bedside; 24hour events reviewed; nursing and respiratory care staff consulted; no adverse overnight events reported to me; resting in bed; remains on t-piece; denies acute chest pains or palpitations; s/p PT/OT today and sat on side of bed assisted; No N/V/F/C Objective Vital Signs - 12hr 02/04/22 02/04/22 02/04/22 01:00 02:00 03:00 Temperature Pulse Rate 60 60 60 Pulse Rate [ From Monitor] Respiratory 9 L 15 14 Rate Blood Pressure 111/47 112/50 107/42 O2 Sat by Pulse 100 100 100 Oximetry O2 Sat by Pulse Oximetry [ Assessment] 02/04/22 02/04/22 02/04/22 04:00 04:13 05:00 Temperature 97.2 F L Pulse Rate 60 64 Pulse Rate [ 60 From Monitor] Respiratory 14 13 Rate Blood Pressure 117/51 119/68 O2 Sat by Pulse 100 100 Oximetry O2 Sat by Pulse 100 Oximetry [ Assessment] 02/04/22 02/04/22 02/04/22 06:00 07:00 07:30 Temperature 97.6 F Pulse Rate 60 61 Pulse Rate [ From Monitor] Respiratory 13 11 L Rate Blood Pressure 116/46 122/50 O2 Sat by Pulse 100 100 Oximetry O2 Sat by Pulse Oximetry [ Assessment] 02/04/22 02/04/22 02/04/22 08:00 09:00 10:00 Temperature 97.6 F Pulse Rate 64 60 61 Pulse Rate [ 64 From Monitor] Respiratory 13 13 13 Rate Blood Pressure 107/43 111/48 118/49 O2 Sat by Pulse 100 100 99 Oximetry O2 Sat by Pulse 100 Oximetry [ Assessment] 02/04/22 02/04/22 11:00 12:00 Temperature Pulse Rate 60 61 Pulse Rate [ From Monitor] Respiratory 15 17 Rate Blood Pressure 118/51 118/51 O2 Sat by Pulse 100 100 Oximetry O2 Sat by Pulse Oximetry [ Assessment] Constitutional: alert, appears uncomfortable, other (normal respiratory effort at rest) Eyes: non-icteric ENT: oropharynx moist, other (+ Midline tracheostomy with minimal secretions) Neck: supple, no lymphadenopathy, no JVD Effort: mildly labored Ascultation: Bilateral: diminished breath sounds, rhonchi Percussion: Bilateral: not dull Cardiovascular: regular rate and rhythm, other (S1,S2) Gastrointestinal: normoactive bowel sounds, soft, non-tender, non-distended (protuberant) Integumentary: normal Extremities: no cyanosis, no edema, pink and warm, pulses normal Neurologic: non-focal exam (grossly), pupils equal and round, CN II-XII normal, other (motor strength weak but symmetric; also limited by pain) Psychiatric: mood appropriate, affect normal CBC and BMP: 02/03/22 04:00 02/03/22 04:00 ABG, PT/INR, D-dimer: ABG ABG pH 7.488 pH Units (7.350-7.450) H 01/25/22 12:20 ABG pCO2 38.2 mm Hg 01/25/22 12:20 ABG pO2 58.9 mm Hg (80.0-90.0) L 01/25/22 12:20 ABG O2 Saturation 94.9 % (95.0-99.0) L 01/25/22 12:20 PT/INR, D-dimer PT 16.9 Sec. (12.2-14.9) H 01/06/22 04:06 INR 1.23 (0.87-1.13) H 01/06/22 04:06 D-Dimer 2655.00 ng/mlDDU (0-234) H 11/11/21 04:28 Abnormal lab findings: Abnormal Labs 11/03/21 11/03/21 11/03/21 22:32 22:32 22:32 WBC 29.3 H RBC 2.93 L Hgb 6.1 L Hct 21.9 L MCV 75 L MCH 21 L MCHC 28 L RDW 19.7 H Plt Count Eos % (Auto) Eos # (Auto) Seg Neuts % (Manual) 97.0 H Lymphocytes % (Manual) 3.0 L Seg Neutrophils # Seg Neutrophils # Man 28.4 H Lymphocytes # (Manual) 0.9 L Monocytes # (Manual) PT 18.6 H INR 1.40 H APTT D-Dimer ABG pH ABG pO2 ABG HCO3 ABG O2 Saturation ABG Base Excess ABG Hemoglobin Oxyhemoglobin Sodium Potassium Chloride Carbon Dioxide 20 L BUN 33 H Creatinine Glucose 119 H POC Glucose Lactic Acid Calcium 8.3 L Phosphorus Magnesium AST ALT Alkaline Phosphatase Lactate Dehydrogenase Troponin T 0.035 H C-Reactive Protein NT-Pro-B Natriuret Pep Total Protein Albumin LDL Cholesterol Direct 34 L Vitamin B12 Urine WBC (Auto) Fluid Glucose Fluid Total Protein Vancomycin Trough Crossmatch 11/03/21 11/03/21 11/03/21 22:32 22:32 23:57 WBC RBC Hgb Hct MCV MCH MCHC RDW Plt Count Eos % (Auto) Eos # (Auto) Seg Neuts % (Manual) Lymphocytes % (Manual) Seg Neutrophils # Seg Neutrophils # Man Lymphocytes # (Manual) Monocytes # (Manual) PT INR APTT D-Dimer ABG pH ABG pO2 ABG HCO3 ABG O2 Saturation ABG Base Excess ABG Hemoglobin Oxyhemoglobin Sodium Potassium Chloride Carbon Dioxide BUN Creatinine Glucose POC Glucose Lactic Acid 3.70 H* Calcium Phosphorus Magnesium AST ALT Alkaline Phosphatase 139 H Lactate Dehydrogenase Troponin T C-Reactive Protein NT-Pro-B Natriuret Pep 7895 H Total Protein Albumin 3.5 L LDL Cholesterol Direct Vitamin B12 Urine WBC (Auto) Fluid Glucose Fluid Total Protein Vancomycin Trough Crossmatch See Detail 11/04/21 11/04/21 11/05/21 00:59 13:58 00:51 WBC 27.9 H RBC 3.28 L Hgb 7.3 L Hct 25.5 L MCV 78 L MCH 22 L MCHC 29 L RDW 19.1 H Plt Count Eos % (Auto) Eos # (Auto) Seg Neuts % (Manual) 96.0 H Lymphocytes % (Manual) 2.0 L Seg Neutrophils # Seg Neutrophils # Man 26.8 H Lymphocytes # (Manual) 0.6 L Monocytes # (Manual) PT INR APTT D-Dimer ABG pH ABG pO2 ABG HCO3 ABG O2 Saturation ABG Base Excess ABG Hemoglobin Oxyhemoglobin Sodium Potassium Chloride Carbon Dioxide BUN Creatinine Glucose POC Glucose Lactic Acid Calcium Phosphorus Magnesium AST ALT Alkaline Phosphatase Lactate Dehydrogenase Troponin T 0.051 H D 0.032 H D C-Reactive Protein NT-Pro-B Natriuret Pep Total Protein Albumin LDL Cholesterol Direct Vitamin B12 Urine WBC (Auto) Fluid Glucose Fluid Total Protein Vancomycin Trough Crossmatch 11/05/21 11/05/21 11/05/21 06:11 06:11 06:11 WBC 31.8 H RBC 3.57 L Hgb 8.0 L Hct 27.7 L MCV 78 L MCH 22 L MCHC 29 L RDW 19.2 H Plt Count Eos % (Auto) Eos # (Auto) Seg Neuts % (Manual) 91.0 H Lymphocytes % (Manual) 4.5 L Seg Neutrophils # Seg Neutrophils # Man 28.9 H Lymphocytes # (Manual) Monocytes # (Manual) 1.1 H PT INR APTT D-Dimer 1494.53 H ABG pH ABG pO2 ABG HCO3 ABG O2 Saturation ABG Base Excess ABG Hemoglobin Oxyhemoglobin Sodium Potassium Chloride Carbon Dioxide 19 L BUN 42 H Creatinine Glucose 115 H POC Glucose Lactic Acid Calcium Phosphorus Magnesium AST 43 H ALT Alkaline Phosphatase Lactate Dehydrogenase 187 H Troponin T C-Reactive Protein 22.20 H NT-Pro-B Natriuret Pep Total Protein 6.0 L Albumin 3.2 L LDL Cholesterol Direct Vitamin B12 Urine WBC (Auto) Fluid Glucose Fluid Total Protein Vancomycin Trough Crossmatch 11/05/21 11/05/21 11/06/21 06:11 12:15 00:30 WBC RBC Hgb Hct MCV MCH MCHC RDW Plt Count Eos % (Auto) Eos # (Auto) Seg Neuts % (Manual) Lymphocytes % (Manual) Seg Neutrophils # Seg Neutrophils # Man Lymphocytes # (Manual) Monocytes # (Manual) PT INR APTT D-Dimer ABG pH ABG pO2 ABG HCO3 ABG O2 Saturation ABG Base Excess ABG Hemoglobin Oxyhemoglobin Sodium Potassium Chloride Carbon Dioxide BUN Creatinine Glucose POC Glucose 113 H 69 L Lactic Acid Calcium Phosphorus Magnesium AST ALT Alkaline Phosphatase Lactate Dehydrogenase Troponin T 0.033 H C-Reactive Protein NT-Pro-B Natriuret Pep Total Protein Albumin LDL Cholesterol Direct Vitamin B12 Urine WBC (Auto) Fluid Glucose Fluid Total Protein Vancomycin Trough Crossmatch 11/06/21 11/06/21 11/06/21 05:50 15:50 15:50 WBC 25.5 H RBC 3.62 L Hgb 8.0 L Hct 27.5 L MCV 76 L MCH 22 L MCHC 29 L RDW 19.6 H Plt Count Eos % (Auto) Eos # (Auto) Seg Neuts % (Manual) 92.0 H Lymphocytes % (Manual) 5.0 L Seg Neutrophils # Seg Neutrophils # Man 23.5 H Lymphocytes # (Manual) Monocytes # (Manual) PT INR APTT D-Dimer ABG pH 7.305 L ABG pO2 ABG HCO3 15.8 L ABG O2 Saturation ABG Base Excess -9.6 L ABG Hemoglobin 8.6 L Oxyhemoglobin 94.6 L Sodium Potassium Chloride 113.9 H Carbon Dioxide 17 L BUN 56 H Creatinine Glucose 114 H POC Glucose Lactic Acid Calcium 7.9 L Phosphorus Magnesium AST 1410 H ALT 934 H Alkaline Phosphatase 142 H Lactate Dehydrogenase Troponin T C-Reactive Protein NT-Pro-B Natriuret Pep Total Protein 5.0 L Albumin 2.6 L LDL Cholesterol Direct Vitamin B12 Urine WBC (Auto) Fluid Glucose Fluid Total Protein Vancomycin Trough Crossmatch 11/07/21 11/07/21 11/07/21 03:30 04:50 08:07 WBC RBC Hgb Hct MCV MCH MCHC RDW Plt Count Eos % (Auto) Eos # (Auto) Seg Neuts % (Manual) Lymphocytes % (Manual) Seg Neutrophils # Seg Neutrophils # Man Lymphocytes # (Manual) Monocytes # (Manual) PT INR APTT D-Dimer ABG pH ABG pO2 296.9 H ABG HCO3 18.1 L ABG O2 Saturation 99.5 H ABG Base Excess -5.9 L ABG Hemoglobin 7.6 L Oxyhemoglobin Sodium Potassium Chloride Carbon Dioxide BUN Creatinine Glucose POC Glucose 106 H 108 H Lactic Acid Calcium Phosphorus Magnesium AST ALT Alkaline Phosphatase Lactate Dehydrogenase Troponin T C-Reactive Protein NT-Pro-B Natriuret Pep Total Protein Albumin LDL Cholesterol Direct Vitamin B12 Urine WBC (Auto) Fluid Glucose Fluid Total Protein Vancomycin Trough Crossmatch 11/08/21 11/08/21 11/08/21 03:10 18:05 23:43 WBC RBC Hgb Hct MCV MCH MCHC RDW Plt Count Eos % (Auto) Eos # (Auto) Seg Neuts % (Manual) Lymphocytes % (Manual) Seg Neutrophils # Seg Neutrophils # Man Lymphocytes # (Manual) Monocytes # (Manual) PT INR APTT D-Dimer ABG pH ABG pO2 127.4 H ABG HCO3 ABG O2 Saturation ABG Base Excess -3.4 L ABG Hemoglobin 7.4 L Oxyhemoglobin Sodium Potassium Chloride Carbon Dioxide BUN Creatinine Glucose POC Glucose 113 H 141 H Lactic Acid Calcium Phosphorus Magnesium AST ALT Alkaline Phosphatase Lactate Dehydrogenase Troponin T C-Reactive Protein NT-Pro-B Natriuret Pep Total Protein Albumin LDL Cholesterol Direct Vitamin B12 Urine WBC (Auto) Fluid Glucose Fluid Total Protein Vancomycin Trough Crossmatch 11/08/21 11/08/21 11/09/21 Unknown Unknown 02:00 WBC 14.5 H RBC 3.35 L Hgb 7.5 L 8.1 L Hct 25.4 L 27.6 L MCV 76 L 76 L MCH 23 L 22 L MCHC RDW 19.9 H 19.9 H Plt Count Eos % (Auto) Eos # (Auto) Seg Neuts % (Manual) Lymphocytes % (Manual) Seg Neutrophils # Seg Neutrophils # Man Lymphocytes # (Manual) Monocytes # (Manual) PT INR APTT D-Dimer ABG pH ABG pO2 ABG HCO3 ABG O2 Saturation ABG Base Excess ABG Hemoglobin Oxyhemoglobin Sodium 154 H D Potassium 3.3 L Chloride 120.7 H Carbon Dioxide 20 L BUN 38 H Creatinine Glucose POC Glucose Lactic Acid Calcium 8.3 L Phosphorus Magnesium AST ALT Alkaline Phosphatase Lactate Dehydrogenase Troponin T C-Reactive Protein NT-Pro-B Natriuret Pep Total Protein Albumin LDL Cholesterol Direct Vitamin B12 Urine WBC (Auto) Fluid Glucose Fluid Total Protein Vancomycin Trough Crossmatch 11/09/21 11/09/21 11/09/21 02:00 02:31 05:12 WBC RBC Hgb Hct MCV MCH MCHC RDW Plt Count Eos % (Auto) Eos # (Auto) Seg Neuts % (Manual) Lymphocytes % (Manual) Seg Neutrophils # Seg Neutrophils # Man Lymphocytes # (Manual) Monocytes # (Manual) PT INR APTT D-Dimer ABG pH 7.479 H ABG pO2 121.3 H ABG HCO3 ABG O2 Saturation ABG Base Excess ABG Hemoglobin 7.3 L Oxyhemoglobin Sodium Potassium Chloride 112.5 H Carbon Dioxide BUN 33 H Creatinine Glucose 161 H POC Glucose 135 H Lactic Acid Calcium Phosphorus Magnesium AST 251 H ALT 481 H Alkaline Phosphatase Lactate Dehydrogenase Troponin T C-Reactive Protein NT-Pro-B Natriuret Pep Total Protein 5.0 L Albumin 2.8 L LDL Cholesterol Direct Vitamin B12 Urine WBC (Auto) Fluid Glucose Fluid Total Protein Vancomycin Trough Crossmatch 11/09/21 11/09/21 11/09/21 11:33 16:32 23:28 WBC RBC Hgb Hct MCV MCH MCHC RDW Plt Count Eos % (Auto) Eos # (Auto) Seg Neuts % (Manual) Lymphocytes % (Manual) Seg Neutrophils # Seg Neutrophils # Man Lymphocytes # (Manual) Monocytes # (Manual) PT INR APTT D-Dimer ABG pH ABG pO2 ABG HCO3 ABG O2 Saturation ABG Base Excess ABG Hemoglobin Oxyhemoglobin Sodium Potassium Chloride Carbon Dioxide BUN Creatinine Glucose POC Glucose 132 H 133 H 143 H Lactic Acid Calcium Phosphorus Magnesium AST ALT Alkaline Phosphatase Lactate Dehydrogenase Troponin T C-Reactive Protein NT-Pro-B Natriuret Pep Total Protein Albumin LDL Cholesterol Direct Vitamin B12 Urine WBC (Auto) Fluid Glucose Fluid Total Protein Vancomycin Trough Crossmatch 11/10/21 11/10/21 11/10/21 04:00 04:00 05:35 WBC 16.0 H RBC 3.61 L Hgb 8.0 L Hct 27.1 L MCV 75 L MCH 22 L MCHC RDW 20.4 H Plt Count Eos % (Auto) Eos # (Auto) Seg Neuts % (Manual) Lymphocytes % (Manual) Seg Neutrophils # Seg Neutrophils # Man Lymphocytes # (Manual) Monocytes # (Manual) PT INR APTT D-Dimer ABG pH ABG pO2 ABG HCO3 ABG O2 Saturation ABG Base Excess ABG Hemoglobin Oxyhemoglobin Sodium 149 H Potassium Chloride 114.1 H Carbon Dioxide BUN 31 H Creatinine Glucose 148 H POC Glucose 132 H Lactic Acid Calcium 8.2 L Phosphorus Magnesium AST ALT Alkaline Phosphatase Lactate Dehydrogenase Troponin T C-Reactive Protein NT-Pro-B Natriuret Pep Total Protein Albumin LDL Cholesterol Direct Vitamin B12 Urine WBC (Auto) Fluid Glucose Fluid Total Protein Vancomycin Trough Crossmatch 11/10/21 11/10/21 11/10/21 11:31 14:08 15:35 WBC RBC Hgb Hct MCV MCH MCHC RDW Plt Count Eos % (Auto) Eos # (Auto) Seg Neuts % (Manual) Lymphocytes % (Manual) Seg Neutrophils # Seg Neutrophils # Man Lymphocytes # (Manual) Monocytes # (Manual) PT INR APTT D-Dimer ABG pH ABG pO2 126.6 H ABG HCO3 ABG O2 Saturation ABG Base Excess ABG Hemoglobin 7.4 L Oxyhemoglobin Sodium Potassium Chloride Carbon Dioxide BUN Creatinine Glucose POC Glucose 147 H Lactic Acid Calcium Phosphorus Magnesium AST ALT Alkaline Phosphatase Lactate Dehydrogenase Troponin T C-Reactive Protein NT-Pro-B Natriuret Pep Total Protein Albumin LDL Cholesterol Direct Vitamin B12 1823 H Urine WBC (Auto) Fluid Glucose Fluid Total Protein Vancomycin Trough Crossmatch 11/10/21 11/11/21 11/11/21 17:53 00:55 04:28 WBC RBC Hgb Hct MCV MCH MCHC RDW Plt Count Eos % (Auto) Eos # (Auto) Seg Neuts % (Manual) Lymphocytes % (Manual) Seg Neutrophils # Seg Neutrophils # Man Lymphocytes # (Manual) Monocytes # (Manual) PT INR APTT D-Dimer ABG pH ABG pO2 ABG HCO3 ABG O2 Saturation ABG Base Excess ABG Hemoglobin Oxyhemoglobin Sodium 149 H Potassium Chloride 112.2 H Carbon Dioxide BUN 34 H Creatinine Glucose 148 H POC Glucose 140 H 145 H Lactic Acid Calcium 7.9 L Phosphorus Magnesium AST 53 H ALT 203 H Alkaline Phosphatase Lactate Dehydrogenase Troponin T C-Reactive Protein NT-Pro-B Natriuret Pep Total Protein 4.9 L Albumin 2.6 L LDL Cholesterol Direct Vitamin B12 Urine WBC (Auto) Fluid Glucose Fluid Total Protein Vancomycin Trough Crossmatch 11/11/21 11/11/21 11/11/21 04:28 04:28 05:28 WBC 20.9 H RBC 3.47 L Hgb 7.5 L Hct 26.0 L MCV 75 L MCH 22 L MCHC 29 L RDW 21.6 H Plt Count 132 L Eos % (Auto) Eos # (Auto) Seg Neuts % (Manual) Lymphocytes % (Manual) Seg Neutrophils # Seg Neutrophils # Man Lymphocytes # (Manual) Monocytes # (Manual) PT INR APTT D-Dimer 2655.00 H ABG pH ABG pO2 ABG HCO3 ABG O2 Saturation ABG Base Excess ABG Hemoglobin Oxyhemoglobin Sodium Potassium Chloride Carbon Dioxide BUN Creatinine Glucose POC Glucose 154 H Lactic Acid Calcium Phosphorus Magnesium AST ALT Alkaline Phosphatase Lactate Dehydrogenase Troponin T C-Reactive Protein NT-Pro-B Natriuret Pep Total Protein Albumin LDL Cholesterol Direct Vitamin B12 Urine WBC (Auto) Fluid Glucose Fluid Total Protein Vancomycin Trough Crossmatch 11/11/21 11/11/21 11/12/21 12:38 18:13 00:14 WBC RBC Hgb Hct MCV MCH MCHC RDW Plt Count Eos % (Auto) Eos # (Auto) Seg Neuts % (Manual) Lymphocytes % (Manual) Seg Neutrophils # Seg Neutrophils # Man Lymphocytes # (Manual) Monocytes # (Manual) PT INR APTT D-Dimer ABG pH ABG pO2 ABG HCO3 ABG O2 Saturation ABG Base Excess ABG Hemoglobin Oxyhemoglobin Sodium Potassium Chloride Carbon Dioxide BUN Creatinine Glucose POC Glucose 137 H 108 H 137 H Lactic Acid Calcium Phosphorus Magnesium AST ALT Alkaline Phosphatase Lactate Dehydrogenase Troponin T C-Reactive Protein NT-Pro-B Natriuret Pep Total Protein Albumin LDL Cholesterol Direct Vitamin B12 Urine WBC (Auto) Fluid Glucose Fluid Total Protein Vancomycin Trough Crossmatch 11/12/21 11/12/21 11/12/21 05:40 06:24 11:12 WBC RBC Hgb Hct MCV MCH MCHC RDW Plt Count Eos % (Auto) Eos # (Auto) Seg Neuts % (Manual) Lymphocytes % (Manual) Seg Neutrophils # Seg Neutrophils # Man Lymphocytes # (Manual) Monocytes # (Manual) PT INR APTT D-Dimer ABG pH 7.586 H ABG pO2 150.6 H ABG HCO3 27.2 H ABG O2 Saturation 99.1 H ABG Base Excess 5.2 H ABG Hemoglobin 7.5 L Oxyhemoglobin Sodium Potassium Chloride Carbon Dioxide BUN Creatinine Glucose POC Glucose 132 H 140 H Lactic Acid Calcium Phosphorus Magnesium AST ALT Alkaline Phosphatase Lactate Dehydrogenase Troponin T C-Reactive Protein NT-Pro-B Natriuret Pep Total Protein Albumin LDL Cholesterol Direct Vitamin B12 Urine WBC (Auto) Fluid Glucose Fluid Total Protein Vancomycin Trough Crossmatch 11/12/21 11/12/21 11/12/21 14:50 14:50 17:13 WBC 19.8 H RBC 3.27 L Hgb 7.1 L Hct 24.5 L MCV 75 L MCH 22 L MCHC 29 L RDW 22.3 H Plt Count Eos % (Auto) Eos # (Auto) Seg Neuts % (Manual) Lymphocytes % (Manual) Seg Neutrophils # Seg Neutrophils # Man Lymphocytes # (Manual) Monocytes # (Manual) PT INR APTT D-Dimer ABG pH ABG pO2 ABG HCO3 ABG O2 Saturation ABG Base Excess ABG Hemoglobin Oxyhemoglobin Sodium 150 H Potassium 3.3 L Chloride 112.0 H Carbon Dioxide BUN 40 H Creatinine Glucose 151 H POC Glucose 121 H Lactic Acid Calcium 7.4 L Phosphorus 1.70 L Magnesium 1.40 L AST ALT Alkaline Phosphatase Lactate Dehydrogenase Troponin T C-Reactive Protein NT-Pro-B Natriuret Pep Total Protein Albumin LDL Cholesterol Direct Vitamin B12 Urine WBC (Auto) Fluid Glucose Fluid Total Protein Vancomycin Trough Crossmatch 11/12/21 11/13/21 11/13/21 23:19 05:34 06:30 WBC RBC Hgb Hct MCV MCH MCHC RDW Plt Count Eos % (Auto) Eos # (Auto) Seg Neuts % (Manual) Lymphocytes % (Manual) Seg Neutrophils # Seg Neutrophils # Man Lymphocytes # (Manual) Monocytes # (Manual) PT INR APTT D-Dimer ABG pH ABG pO2 ABG HCO3 ABG O2 Saturation ABG Base Excess ABG Hemoglobin Oxyhemoglobin Sodium 149 H Potassium Chloride 60.0 L Carbon Dioxide BUN 40 H Creatinine Glucose 146 H POC Glucose 113 H 132 H Lactic Acid Calcium 7.3 L Phosphorus Magnesium 2.40 H AST ALT 72 H Alkaline Phosphatase Lactate Dehydrogenase Troponin T C-Reactive Protein NT-Pro-B Natriuret Pep Total Protein 5.2 L Albumin 2.2 L LDL Cholesterol Direct Vitamin B12 Urine WBC (Auto) Fluid Glucose Fluid Total Protein Vancomycin Trough Crossmatch 11/13/21 11/13/21 11/13/21 06:30 08:30 11:19 WBC 21.2 H RBC 3.12 L Hgb 6.8 L Hct 23.2 L MCV 74 L MCH 22 L MCHC 29 L RDW 22.2 H Plt Count 135 L Eos % (Auto) Eos # (Auto) Seg Neuts % (Manual) Lymphocytes % (Manual) Seg Neutrophils # Seg Neutrophils # Man Lymphocytes # (Manual) Monocytes # (Manual) PT INR APTT D-Dimer ABG pH ABG pO2 ABG HCO3 ABG O2 Saturation ABG Base Excess ABG Hemoglobin Oxyhemoglobin Sodium Potassium Chloride Carbon Dioxide BUN Creatinine Glucose POC Glucose 136 H Lactic Acid Calcium Phosphorus Magnesium AST ALT Alkaline Phosphatase Lactate Dehydrogenase Troponin T C-Reactive Protein NT-Pro-B Natriuret Pep Total Protein Albumin LDL Cholesterol Direct Vitamin B12 Urine WBC (Auto) Fluid Glucose Fluid Total Protein Vancomycin Trough Crossmatch See Detail 11/13/21 11/14/21 11/14/21 18:21 00:01 04:46 WBC 20.0 H RBC 3.41 L Hgb 7.9 L Hct 26.8 L MCV MCH 23 L MCHC 29 L RDW 24.0 H Plt Count Eos % (Auto) Eos # (Auto) Seg Neuts % (Manual) Lymphocytes % (Manual) Seg Neutrophils # Seg Neutrophils # Man Lymphocytes # (Manual) Monocytes # (Manual) PT INR APTT D-Dimer ABG pH ABG pO2 ABG HCO3 ABG O2 Saturation ABG Base Excess ABG Hemoglobin Oxyhemoglobin Sodium Potassium Chloride Carbon Dioxide BUN Creatinine Glucose POC Glucose 149 H 141 H Lactic Acid Calcium Phosphorus Magnesium AST ALT Alkaline Phosphatase Lactate Dehydrogenase Troponin T C-Reactive Protein NT-Pro-B Natriuret Pep Total Protein Albumin LDL Cholesterol Direct Vitamin B12 Urine WBC (Auto) Fluid Glucose Fluid Total Protein Vancomycin Trough Crossmatch 11/14/21 11/14/21 11/14/21 04:46 05:10 11:10 WBC RBC Hgb Hct MCV MCH MCHC RDW Plt Count Eos % (Auto) Eos # (Auto) Seg Neuts % (Manual) Lymphocytes % (Manual) Seg Neutrophils # Seg Neutrophils # Man Lymphocytes # (Manual) Monocytes # (Manual) PT INR APTT D-Dimer ABG pH ABG pO2 ABG HCO3 ABG O2 Saturation ABG Base Excess ABG Hemoglobin Oxyhemoglobin Sodium 148 H Potassium Chloride 113.1 H Carbon Dioxide BUN 43 H Creatinine Glucose 140 H POC Glucose 132 H 133 H Lactic Acid Calcium 7.5 L Phosphorus Magnesium AST ALT Alkaline Phosphatase Lactate Dehydrogenase Troponin T C-Reactive Protein NT-Pro-B Natriuret Pep Total Protein Albumin LDL Cholesterol Direct Vitamin B12 Urine WBC (Auto) Fluid Glucose Fluid Total Protein Vancomycin Trough Crossmatch 11/14/21 11/14/21 11/14/21 16:14 17:48 23:23 WBC RBC Hgb Hct MCV MCH MCHC RDW Plt Count Eos % (Auto) Eos # (Auto) Seg Neuts % (Manual) Lymphocytes % (Manual) Seg Neutrophils # Seg Neutrophils # Man Lymphocytes # (Manual) Monocytes # (Manual) PT INR APTT D-Dimer ABG pH ABG pO2 ABG HCO3 28.0 H ABG O2 Saturation ABG Base Excess 3.1 H ABG Hemoglobin 5.8 L Oxyhemoglobin 94.8 L Sodium Potassium Chloride Carbon Dioxide BUN Creatinine Glucose POC Glucose 130 H 136 H Lactic Acid Calcium Phosphorus Magnesium AST ALT Alkaline Phosphatase Lactate Dehydrogenase Troponin T C-Reactive Protein NT-Pro-B Natriuret Pep Total Protein Albumin LDL Cholesterol Direct Vitamin B12 Urine WBC (Auto) Fluid Glucose Fluid Total Protein Vancomycin Trough Crossmatch 11/15/21 11/15/21 11/15/21 05:20 05:50 05:50 WBC 19.9 H RBC 3.50 L Hgb 8.2 L Hct 27.9 L MCV MCH 23 L MCHC 29 L RDW 24.9 H Plt Count Eos % (Auto) Eos # (Auto) Seg Neuts % (Manual) Lymphocytes % (Manual) Seg Neutrophils # Seg Neutrophils # Man Lymphocytes # (Manual) Monocytes # (Manual) PT INR APTT D-Dimer ABG pH ABG pO2 ABG HCO3 ABG O2 Saturation ABG Base Excess ABG Hemoglobin Oxyhemoglobin Sodium 149 H Potassium Chloride 112.0 H Carbon Dioxide BUN 48 H Creatinine Glucose 152 H POC Glucose 137 H Lactic Acid Calcium 7.9 L Phosphorus Magnesium AST ALT Alkaline Phosphatase Lactate Dehydrogenase Troponin T C-Reactive Protein NT-Pro-B Natriuret Pep Total Protein Albumin LDL Cholesterol Direct Vitamin B12 Urine WBC (Auto) Fluid Glucose Fluid Total Protein Vancomycin Trough Crossmatch 11/15/21 11/15/21 11/15/21 12:12 17:07 23:24 WBC RBC Hgb Hct MCV MCH MCHC RDW Plt Count Eos % (Auto) Eos # (Auto) Seg Neuts % (Manual) Lymphocytes % (Manual) Seg Neutrophils # Seg Neutrophils # Man Lymphocytes # (Manual) Monocytes # (Manual) PT INR APTT D-Dimer ABG pH ABG pO2 ABG HCO3 ABG O2 Saturation ABG Base Excess ABG Hemoglobin Oxyhemoglobin Sodium Potassium Chloride Carbon Dioxide BUN Creatinine Glucose POC Glucose 114 H 135 H 123 H Lactic Acid Calcium Phosphorus Magnesium AST ALT Alkaline Phosphatase Lactate Dehydrogenase Troponin T C-Reactive Protein NT-Pro-B Natriuret Pep Total Protein Albumin LDL Cholesterol Direct Vitamin B12 Urine WBC (Auto) Fluid Glucose Fluid Total Protein Vancomycin Trough Crossmatch 11/16/21 11/16/21 11/16/21 05:21 10:00 10:00 WBC 21.7 H RBC 2.57 L Hgb 6.0 L Hct 20.2 L D MCV MCH 24 L MCHC RDW 26.3 H Plt Count Eos % (Auto) Eos # (Auto) Seg Neuts % (Manual) Lymphocytes % (Manual) Seg Neutrophils # Seg Neutrophils # Man Lymphocytes # (Manual) Monocytes # (Manual) PT INR APTT D-Dimer ABG pH ABG pO2 ABG HCO3 ABG O2 Saturation ABG Base Excess ABG Hemoglobin Oxyhemoglobin Sodium 153 H Potassium Chloride 114.9 H Carbon Dioxide BUN 74 H Creatinine Glucose 155 H POC Glucose 127 H Lactic Acid Calcium 8.1 L Phosphorus Magnesium AST ALT Alkaline Phosphatase Lactate Dehydrogenase Troponin T C-Reactive Protein NT-Pro-B Natriuret Pep Total Protein Albumin LDL Cholesterol Direct Vitamin B12 Urine WBC (Auto) Fluid Glucose Fluid Total Protein Vancomycin Trough Crossmatch 11/16/21 11/16/21 11/16/21 11:34 14:00 15:25 WBC 17.2 H RBC 2.08 L Hgb 4.7 L* Hct 16.2 L* MCV 78 L MCH 23 L MCHC 29 L RDW 26.0 H Plt Count Eos % (Auto) Eos # (Auto) Seg Neuts % (Manual) 87.0 H Lymphocytes % (Manual) 8.0 L Seg Neutrophils # Seg Neutrophils # Man 15.0 H Lymphocytes # (Manual) Monocytes # (Manual) 0.9 H PT INR APTT D-Dimer ABG pH ABG pO2 ABG HCO3 ABG O2 Saturation ABG Base Excess ABG Hemoglobin Oxyhemoglobin Sodium Potassium Chloride Carbon Dioxide BUN Creatinine Glucose POC Glucose 131 H Lactic Acid Calcium Phosphorus Magnesium AST ALT Alkaline Phosphatase Lactate Dehydrogenase Troponin T C-Reactive Protein NT-Pro-B Natriuret Pep Total Protein Albumin LDL Cholesterol Direct Vitamin B12 Urine WBC (Auto) Fluid Glucose Fluid Total Protein Vancomycin Trough Crossmatch See Detail 11/16/21 11/16/21 11/16/21 15:25 17:21 22:43 WBC RBC Hgb 8.6 L D Hct 27.7 L D MCV MCH MCHC RDW Plt Count Eos % (Auto) Eos # (Auto) Seg Neuts % (Manual) Lymphocytes % (Manual) Seg Neutrophils # Seg Neutrophils # Man Lymphocytes # (Manual) Monocytes # (Manual) PT INR APTT D-Dimer ABG pH ABG pO2 ABG HCO3 ABG O2 Saturation ABG Base Excess ABG Hemoglobin Oxyhemoglobin Sodium 148 H Potassium Chloride 113.2 H Carbon Dioxide BUN 84 H Creatinine Glucose 164 H POC Glucose 124 H Lactic Acid Calcium 7.6 L Phosphorus Magnesium AST ALT Alkaline Phosphatase Lactate Dehydrogenase Troponin T C-Reactive Protein NT-Pro-B Natriuret Pep Total Protein Albumin LDL Cholesterol Direct Vitamin B12 Urine WBC (Auto) Fluid Glucose Fluid Total Protein Vancomycin Trough Crossmatch 11/16/21 11/17/21 11/17/21 23:07 05:33 05:56 WBC 25.1 H RBC 3.47 L Hgb 8.7 L Hct 28.5 L MCV MCH 25 L MCHC RDW 22.3 H Plt Count Eos % (Auto) Eos # (Auto) Seg Neuts % (Manual) Lymphocytes % (Manual) Seg Neutrophils # Seg Neutrophils # Man Lymphocytes # (Manual) Monocytes # (Manual) PT INR APTT D-Dimer ABG pH ABG pO2 ABG HCO3 ABG O2 Saturation ABG Base Excess ABG Hemoglobin Oxyhemoglobin Sodium Potassium Chloride Carbon Dioxide BUN Creatinine Glucose POC Glucose 128 H 133 H Lactic Acid Calcium Phosphorus Magnesium AST ALT Alkaline Phosphatase Lactate Dehydrogenase Troponin T C-Reactive Protein NT-Pro-B Natriuret Pep Total Protein Albumin LDL Cholesterol Direct Vitamin B12 Urine WBC (Auto) Fluid Glucose Fluid Total Protein Vancomycin Trough Crossmatch 11/17/21 11/17/21 11/17/21 05:56 11:00 11:55 WBC RBC Hgb 8.3 L Hct 26.9 L MCV MCH MCHC RDW Plt Count Eos % (Auto) Eos # (Auto) Seg Neuts % (Manual) Lymphocytes % (Manual) Seg Neutrophils # Seg Neutrophils # Man Lymphocytes # (Manual) Monocytes # (Manual) PT INR APTT D-Dimer ABG pH ABG pO2 ABG HCO3 ABG O2 Saturation ABG Base Excess ABG Hemoglobin Oxyhemoglobin Sodium 151 H Potassium Chloride 113.6 H Carbon Dioxide BUN 85 H Creatinine Glucose 132 H POC Glucose 121 H Lactic Acid Calcium 7.8 L Phosphorus Magnesium AST ALT Alkaline Phosphatase Lactate Dehydrogenase Troponin T C-Reactive Protein NT-Pro-B Natriuret Pep Total Protein 5.1 L Albumin 2.2 L LDL Cholesterol Direct Vitamin B12 Urine WBC (Auto) Fluid Glucose Fluid Total Protein Vancomycin Trough Crossmatch 11/17/21 11/17/21 11/18/21 18:04 18:55 00:26 WBC RBC Hgb 7.5 L 7.1 L Hct 24.8 L 23.6 L MCV MCH MCHC RDW Plt Count Eos % (Auto) Eos # (Auto) Seg Neuts % (Manual) Lymphocytes % (Manual) Seg Neutrophils # Seg Neutrophils # Man Lymphocytes # (Manual) Monocytes # (Manual) PT INR APTT D-Dimer ABG pH ABG pO2 ABG HCO3 ABG O2 Saturation ABG Base Excess ABG Hemoglobin Oxyhemoglobin Sodium Potassium Chloride Carbon Dioxide BUN Creatinine Glucose POC Glucose 144 H Lactic Acid Calcium Phosphorus Magnesium AST ALT Alkaline Phosphatase Lactate Dehydrogenase Troponin T C-Reactive Protein NT-Pro-B Natriuret Pep Total Protein Albumin LDL Cholesterol Direct Vitamin B12 Urine WBC (Auto) Fluid Glucose Fluid Total Protein Vancomycin Trough Crossmatch 11/18/21 11/18/21 11/18/21 00:43 05:10 05:10 WBC 12.5 H RBC 2.39 L Hgb 6.1 L Hct 20.2 L MCV MCH 25 L MCHC RDW 23.2 H Plt Count Eos % (Auto) Eos # (Auto) Seg Neuts % (Manual) Lymphocytes % (Manual) Seg Neutrophils # Seg Neutrophils # Man Lymphocytes # (Manual) Monocytes # (Manual) PT INR APTT D-Dimer ABG pH ABG pO2 ABG HCO3 ABG O2 Saturation ABG Base Excess ABG Hemoglobin Oxyhemoglobin Sodium 131 L D Potassium 2.9 L* D Chloride 97.8 L Carbon Dioxide BUN 58 H Creatinine Glucose 665 H* POC Glucose 139 H Lactic Acid Calcium 7.0 L Phosphorus 2.20 L D Magnesium 1.50 L AST ALT Alkaline Phosphatase Lactate Dehydrogenase Troponin T C-Reactive Protein NT-Pro-B Natriuret Pep Total Protein Albumin LDL Cholesterol Direct Vitamin B12 Urine WBC (Auto) Fluid Glucose Fluid Total Protein Vancomycin Trough Crossmatch 11/18/21 11/18/21 11/18/21 05:23 07:10 10:45 WBC RBC Hgb Hct MCV MCH MCHC RDW Plt Count Eos % (Auto) Eos # (Auto) Seg Neuts % (Manual) Lymphocytes % (Manual) Seg Neutrophils # Seg Neutrophils # Man Lymphocytes # (Manual) Monocytes # (Manual) PT INR APTT D-Dimer ABG pH ABG pO2 ABG HCO3 ABG O2 Saturation ABG Base Excess ABG Hemoglobin Oxyhemoglobin Sodium 148 H D Potassium 3.1 L Chloride 111.9 H Carbon Dioxide BUN 63 H Creatinine Glucose 141 H POC Glucose 124 H Lactic Acid Calcium 8.1 L D Phosphorus Magnesium AST ALT Alkaline Phosphatase Lactate Dehydrogenase Troponin T C-Reactive Protein NT-Pro-B Natriuret Pep Total Protein Albumin LDL Cholesterol Direct Vitamin B12 Urine WBC (Auto) Fluid Glucose Fluid Total Protein Vancomycin Trough Crossmatch See Detail 11/18/21 11/19/21 11/19/21 11:57 00:19 04:55 WBC RBC 3.35 L Hgb 9.0 L 8.9 L Hct 28.3 L D 28.1 L MCV MCH 27 L MCHC RDW 20.3 H Plt Count Eos % (Auto) Eos # (Auto) Seg Neuts % (Manual) Lymphocytes % (Manual) Seg Neutrophils # Seg Neutrophils # Man Lymphocytes # (Manual) Monocytes # (Manual) PT INR APTT D-Dimer ABG pH ABG pO2 ABG HCO3 ABG O2 Saturation ABG Base Excess ABG Hemoglobin Oxyhemoglobin Sodium Potassium Chloride Carbon Dioxide BUN Creatinine Glucose POC Glucose 119 H Lactic Acid Calcium Phosphorus Magnesium AST ALT Alkaline Phosphatase Lactate Dehydrogenase Troponin T C-Reactive Protein NT-Pro-B Natriuret Pep Total Protein Albumin LDL Cholesterol Direct Vitamin B12 Urine WBC (Auto) Fluid Glucose Fluid Total Protein Vancomycin Trough Crossmatch 11/19/21 11/19/21 11/20/21 04:55 05:42 00:55 WBC RBC Hgb 9.0 L Hct 28.6 L MCV MCH MCHC RDW Plt Count Eos % (Auto) Eos # (Auto) Seg Neuts % (Manual) Lymphocytes % (Manual) Seg Neutrophils # Seg Neutrophils # Man Lymphocytes # (Manual) Monocytes # (Manual) PT INR APTT D-Dimer ABG pH ABG pO2 ABG HCO3 ABG O2 Saturation ABG Base Excess ABG Hemoglobin Oxyhemoglobin Sodium Potassium 3.5 L Chloride 108.6 H Carbon Dioxide BUN 47 H Creatinine Glucose 207 H POC Glucose 63 L Lactic Acid Calcium 7.1 L Phosphorus Magnesium AST ALT Alkaline Phosphatase Lactate Dehydrogenase Troponin T C-Reactive Protein NT-Pro-B Natriuret Pep Total Protein Albumin LDL Cholesterol Direct Vitamin B12 Urine WBC (Auto) Fluid Glucose Fluid Total Protein Vancomycin Trough Crossmatch 11/20/21 11/20/21 11/20/21 05:40 05:40 Unknown WBC RBC 3.40 L Hgb 9.1 L Hct 28.8 L MCV MCH 27 L MCHC RDW 20.7 H Plt Count Eos % (Auto) Eos # (Auto) Seg Neuts % (Manual) Lymphocytes % (Manual) Seg Neutrophils # Seg Neutrophils # Man Lymphocytes # (Manual) Monocytes # (Manual) PT INR APTT D-Dimer ABG pH ABG pO2 ABG HCO3 ABG O2 Saturation ABG Base Excess -2.7 L ABG Hemoglobin 9.5 L Oxyhemoglobin 94.3 L Sodium Potassium 3.5 L Chloride 108.9 H Carbon Dioxide BUN 37 H Creatinine Glucose 117 H POC Glucose Lactic Acid Calcium 7.5 L Phosphorus Magnesium AST ALT Alkaline Phosphatase Lactate Dehydrogenase Troponin T C-Reactive Protein NT-Pro-B Natriuret Pep Total Protein Albumin LDL Cholesterol Direct Vitamin B12 Urine WBC (Auto) Fluid Glucose Fluid Total Protein Vancomycin Trough Crossmatch 11/21/21 11/21/21 11/21/21 04:30 04:30 16:00 WBC RBC 3.25 L Hgb 8.6 L Hct 28.1 L MCV MCH 26 L MCHC RDW 20.7 H Plt Count Eos % (Auto) Eos # (Auto) Seg Neuts % (Manual) Lymphocytes % (Manual) Seg Neutrophils # Seg Neutrophils # Man Lymphocytes # (Manual) Monocytes # (Manual) PT INR APTT D-Dimer ABG pH ABG pO2 114.2 H ABG HCO3 ABG O2 Saturation ABG Base Excess ABG Hemoglobin 9.1 L Oxyhemoglobin Sodium 134 L Potassium Chloride Carbon Dioxide 20 L BUN 34 H Creatinine Glucose POC Glucose Lactic Acid Calcium 7.1 L Phosphorus Magnesium AST ALT Alkaline Phosphatase Lactate Dehydrogenase Troponin T C-Reactive Protein NT-Pro-B Natriuret Pep Total Protein Albumin LDL Cholesterol Direct Vitamin B12 Urine WBC (Auto) Fluid Glucose Fluid Total Protein Vancomycin Trough Crossmatch 11/22/21 11/22/21 11/22/21 07:07 07:07 23:54 WBC RBC 3.30 L Hgb 9.0 L Hct 28.5 L MCV MCH 27 L MCHC RDW 21.0 H Plt Count Eos % (Auto) Eos # (Auto) Seg Neuts % (Manual) Lymphocytes % (Manual) Seg Neutrophils # Seg Neutrophils # Man Lymphocytes # (Manual) Monocytes # (Manual) PT INR APTT D-Dimer ABG pH ABG pO2 ABG HCO3 ABG O2 Saturation ABG Base Excess ABG Hemoglobin Oxyhemoglobin Sodium Potassium Chloride Carbon Dioxide BUN 32 H Creatinine Glucose 106 H POC Glucose 110 H Lactic Acid Calcium 7.5 L Phosphorus Magnesium AST ALT Alkaline Phosphatase Lactate Dehydrogenase Troponin T C-Reactive Protein NT-Pro-B Natriuret Pep Total Protein Albumin LDL Cholesterol Direct Vitamin B12 Urine WBC (Auto) Fluid Glucose Fluid Total Protein Vancomycin Trough Crossmatch 11/23/21 11/23/21 11/23/21 04:38 04:38 06:01 WBC RBC 3.23 L Hgb 8.8 L Hct 28.0 L MCV MCH 27 L MCHC RDW 21.3 H Plt Count Eos % (Auto) Eos # (Auto) Seg Neuts % (Manual) Lymphocytes % (Manual) Seg Neutrophils # Seg Neutrophils # Man Lymphocytes # (Manual) Monocytes # (Manual) PT INR APTT D-Dimer ABG pH ABG pO2 ABG HCO3 ABG O2 Saturation ABG Base Excess ABG Hemoglobin Oxyhemoglobin Sodium 136 L Potassium Chloride Carbon Dioxide 20 L BUN 32 H Creatinine Glucose 109 H POC Glucose 115 H Lactic Acid Calcium 7.7 L Phosphorus Magnesium AST ALT Alkaline Phosphatase Lactate Dehydrogenase Troponin T C-Reactive Protein NT-Pro-B Natriuret Pep Total Protein Albumin LDL Cholesterol Direct Vitamin B12 Urine WBC (Auto) Fluid Glucose Fluid Total Protein Vancomycin Trough Crossmatch 11/23/21 11/24/21 11/24/21 11:40 00:03 04:13 WBC RBC 3.18 L Hgb 8.5 L Hct 27.5 L MCV MCH 27 L MCHC RDW 21.6 H Plt Count Eos % (Auto) Eos # (Auto) Seg Neuts % (Manual) Lymphocytes % (Manual) Seg Neutrophils # Seg Neutrophils # Man Lymphocytes # (Manual) Monocytes # (Manual) PT INR APTT D-Dimer ABG pH ABG pO2 ABG HCO3 ABG O2 Saturation ABG Base Excess ABG Hemoglobin Oxyhemoglobin Sodium Potassium Chloride Carbon Dioxide BUN Creatinine Glucose POC Glucose 117 H 111 H Lactic Acid Calcium Phosphorus Magnesium AST ALT Alkaline Phosphatase Lactate Dehydrogenase Troponin T C-Reactive Protein NT-Pro-B Natriuret Pep Total Protein Albumin LDL Cholesterol Direct Vitamin B12 Urine WBC (Auto) Fluid Glucose Fluid Total Protein Vancomycin Trough Crossmatch 11/24/21 11/24/21 11/24/21 04:13 05:30 11:10 WBC RBC Hgb Hct MCV MCH MCHC RDW Plt Count Eos % (Auto) Eos # (Auto) Seg Neuts % (Manual) Lymphocytes % (Manual) Seg Neutrophils # Seg Neutrophils # Man Lymphocytes # (Manual) Monocytes # (Manual) PT INR APTT D-Dimer ABG pH ABG pO2 ABG HCO3 ABG O2 Saturation ABG Base Excess ABG Hemoglobin Oxyhemoglobin Sodium Potassium Chloride Carbon Dioxide BUN 31 H Creatinine Glucose 101 H POC Glucose 115 H 107 H Lactic Acid Calcium 7.7 L Phosphorus Magnesium AST ALT Alkaline Phosphatase Lactate Dehydrogenase Troponin T C-Reactive Protein NT-Pro-B Natriuret Pep Total Protein Albumin LDL Cholesterol Direct Vitamin B12 Urine WBC (Auto) Fluid Glucose Fluid Total Protein Vancomycin Trough Crossmatch 11/24/21 11/24/21 11/25/21 16:34 17:57 05:12 WBC RBC 3.11 L Hgb 8.2 L Hct 26.6 L MCV MCH 26 L MCHC RDW 21.3 H Plt Count Eos % (Auto) Eos # (Auto) Seg Neuts % (Manual) Lymphocytes % (Manual) Seg Neutrophils # Seg Neutrophils # Man Lymphocytes # (Manual) Monocytes # (Manual) PT INR APTT D-Dimer ABG pH ABG pO2 ABG HCO3 ABG O2 Saturation ABG Base Excess ABG Hemoglobin Oxyhemoglobin Sodium Potassium Chloride Carbon Dioxide BUN Creatinine Glucose POC Glucose 115 H 110 H Lactic Acid Calcium Phosphorus Magnesium AST ALT Alkaline Phosphatase Lactate Dehydrogenase Troponin T C-Reactive Protein NT-Pro-B Natriuret Pep Total Protein Albumin LDL Cholesterol Direct Vitamin B12 Urine WBC (Auto) Fluid Glucose Fluid Total Protein Vancomycin Trough Crossmatch 11/25/21 11/25/21 11/26/21 05:12 11:20 05:00 WBC RBC 3.30 L Hgb 8.8 L Hct 28.2 L MCV MCH 27 L MCHC RDW 20.7 H Plt Count Eos % (Auto) Eos # (Auto) Seg Neuts % (Manual) Lymphocytes % (Manual) Seg Neutrophils # Seg Neutrophils # Man Lymphocytes # (Manual) Monocytes # (Manual) PT INR APTT D-Dimer ABG pH ABG pO2 ABG HCO3 ABG O2 Saturation ABG Base Excess ABG Hemoglobin Oxyhemoglobin Sodium Potassium Chloride Carbon Dioxide BUN 32 H Creatinine Glucose 118 H POC Glucose 118 H Lactic Acid Calcium 8.2 L Phosphorus Magnesium AST ALT Alkaline Phosphatase Lactate Dehydrogenase Troponin T C-Reactive Protein NT-Pro-B Natriuret Pep Total Protein Albumin LDL Cholesterol Direct Vitamin B12 Urine WBC (Auto) Fluid Glucose Fluid Total Protein Vancomycin Trough Crossmatch 11/26/21 11/26/21 11/26/21 05:00 05:00 05:44 WBC RBC Hgb Hct MCV MCH MCHC RDW Plt Count Eos % (Auto) Eos # (Auto) Seg Neuts % (Manual) Lymphocytes % (Manual) Seg Neutrophils # Seg Neutrophils # Man Lymphocytes # (Manual) Monocytes # (Manual) PT 16.9 H INR 1.24 H APTT D-Dimer ABG pH ABG pO2 ABG HCO3 ABG O2 Saturation ABG Base Excess ABG Hemoglobin Oxyhemoglobin Sodium Potassium Chloride Carbon Dioxide BUN 31 H Creatinine Glucose 104 H POC Glucose 110 H Lactic Acid Calcium 7.9 L Phosphorus Magnesium AST ALT Alkaline Phosphatase Lactate Dehydrogenase Troponin T C-Reactive Protein NT-Pro-B Natriuret Pep Total Protein Albumin LDL Cholesterol Direct Vitamin B12 Urine WBC (Auto) Fluid Glucose Fluid Total Protein Vancomycin Trough Crossmatch 11/26/21 11/27/21 11/27/21 23:55 07:40 07:40 WBC RBC 3.18 L Hgb 8.5 L Hct 27.0 L MCV MCH 27 L MCHC RDW 21.2 H Plt Count Eos % (Auto) Eos # (Auto) Seg Neuts % (Manual) Lymphocytes % (Manual) Seg Neutrophils # Seg Neutrophils # Man Lymphocytes # (Manual) Monocytes # (Manual) PT INR APTT D-Dimer ABG pH ABG pO2 ABG HCO3 ABG O2 Saturation ABG Base Excess ABG Hemoglobin Oxyhemoglobin Sodium Potassium Chloride Carbon Dioxide BUN 27 H Creatinine Glucose 112 H POC Glucose 63 L Lactic Acid Calcium 7.6 L Phosphorus Magnesium AST ALT Alkaline Phosphatase Lactate Dehydrogenase Troponin T C-Reactive Protein NT-Pro-B Natriuret Pep Total Protein Albumin LDL Cholesterol Direct Vitamin B12 Urine WBC (Auto) Fluid Glucose Fluid Total Protein Vancomycin Trough Crossmatch 11/27/21 11/27/21 11/27/21 12:04 13:40 13:40 WBC RBC 3.31 L Hgb 8.7 L Hct 28.0 L MCV MCH 26 L MCHC RDW 20.7 H Plt Count Eos % (Auto) Eos # (Auto) Seg Neuts % (Manual) Lymphocytes % (Manual) Seg Neutrophils # Seg Neutrophils # Man Lymphocytes # (Manual) Monocytes # (Manual) PT INR APTT D-Dimer ABG pH ABG pO2 ABG HCO3 ABG O2 Saturation ABG Base Excess ABG Hemoglobin Oxyhemoglobin Sodium 136 L Potassium Chloride Carbon Dioxide BUN 25 H Creatinine Glucose 127 H POC Glucose 109 H Lactic Acid Calcium 7.6 L Phosphorus Magnesium 1.40 L AST ALT Alkaline Phosphatase Lactate Dehydrogenase Troponin T C-Reactive Protein NT-Pro-B Natriuret Pep Total Protein Albumin LDL Cholesterol Direct Vitamin B12 Urine WBC (Auto) Fluid Glucose Fluid Total Protein Vancomycin Trough Crossmatch 11/27/21 11/27/21 11/28/21 17:44 23:33 12:20 WBC RBC Hgb Hct MCV MCH MCHC RDW Plt Count Eos % (Auto) Eos # (Auto) Seg Neuts % (Manual) Lymphocytes % (Manual) Seg Neutrophils # Seg Neutrophils # Man Lymphocytes # (Manual) Monocytes # (Manual) PT INR APTT D-Dimer ABG pH ABG pO2 ABG HCO3 ABG O2 Saturation ABG Base Excess ABG Hemoglobin Oxyhemoglobin Sodium Potassium Chloride Carbon Dioxide BUN Creatinine Glucose POC Glucose 107 H 108 H 114 H Lactic Acid Calcium Phosphorus Magnesium AST ALT Alkaline Phosphatase Lactate Dehydrogenase Troponin T C-Reactive Protein NT-Pro-B Natriuret Pep Total Protein Albumin LDL Cholesterol Direct Vitamin B12 Urine WBC (Auto) Fluid Glucose Fluid Total Protein Vancomycin Trough Crossmatch 11/29/21 11/29/21 11/29/21 00:09 03:20 03:20 WBC RBC 3.05 L Hgb 8.2 L Hct 25.8 L MCV MCH 27 L MCHC RDW 20.9 H Plt Count Eos % (Auto) Eos # (Auto) Seg Neuts % (Manual) Lymphocytes % (Manual) Seg Neutrophils # Seg Neutrophils # Man Lymphocytes # (Manual) Monocytes # (Manual) PT INR APTT D-Dimer ABG pH ABG pO2 ABG HCO3 ABG O2 Saturation ABG Base Excess ABG Hemoglobin Oxyhemoglobin Sodium 133 L Potassium Chloride Carbon Dioxide BUN 24 H Creatinine Glucose 137 H POC Glucose 134 H Lactic Acid Calcium 7.4 L Phosphorus Magnesium AST ALT Alkaline Phosphatase Lactate Dehydrogenase Troponin T C-Reactive Protein NT-Pro-B Natriuret Pep Total Protein Albumin LDL Cholesterol Direct Vitamin B12 Urine WBC (Auto) Fluid Glucose Fluid Total Protein Vancomycin Trough Crossmatch 11/29/21 11/29/21 11/29/21 05:38 11:39 17:11 WBC RBC Hgb Hct MCV MCH MCHC RDW Plt Count Eos % (Auto) Eos # (Auto) Seg Neuts % (Manual) Lymphocytes % (Manual) Seg Neutrophils # Seg Neutrophils # Man Lymphocytes # (Manual) Monocytes # (Manual) PT INR APTT D-Dimer ABG pH ABG pO2 ABG HCO3 ABG O2 Saturation ABG Base Excess ABG Hemoglobin Oxyhemoglobin Sodium Potassium Chloride Carbon Dioxide BUN Creatinine Glucose POC Glucose 117 H 143 H 124 H Lactic Acid Calcium Phosphorus Magnesium AST ALT Alkaline Phosphatase Lactate Dehydrogenase Troponin T C-Reactive Protein NT-Pro-B Natriuret Pep Total Protein Albumin LDL Cholesterol Direct Vitamin B12 Urine WBC (Auto) Fluid Glucose Fluid Total Protein Vancomycin Trough Crossmatch 11/29/21 11/30/21 11/30/21 20:15 05:40 05:40 WBC 12.6 H RBC 3.41 L Hgb 9.1 L Hct 28.9 L MCV MCH 27 L MCHC RDW 20.4 H Plt Count Eos % (Auto) Eos # (Auto) Seg Neuts % (Manual) Lymphocytes % (Manual) Seg Neutrophils # Seg Neutrophils # Man Lymphocytes # (Manual) Monocytes # (Manual) PT INR APTT D-Dimer ABG pH ABG pO2 ABG HCO3 ABG O2 Saturation ABG Base Excess ABG Hemoglobin Oxyhemoglobin Sodium Potassium Chloride Carbon Dioxide BUN 24 H Creatinine Glucose 131 H POC Glucose Lactic Acid Calcium 7.6 L Phosphorus Magnesium AST ALT Alkaline Phosphatase Lactate Dehydrogenase Troponin T 0.045 H C-Reactive Protein NT-Pro-B Natriuret Pep Total Protein Albumin LDL Cholesterol Direct 25 L Vitamin B12 Urine WBC (Auto) Fluid Glucose Fluid Total Protein Vancomycin Trough Crossmatch 11/30/21 11/30/21 12/01/21 11:29 16:51 05:00 WBC RBC 2.97 L Hgb 8.0 L Hct 25.0 L MCV MCH 27 L MCHC RDW 20.8 H Plt Count Eos % (Auto) Eos # (Auto) Seg Neuts % (Manual) Lymphocytes % (Manual) Seg Neutrophils # Seg Neutrophils # Man Lymphocytes # (Manual) Monocytes # (Manual) PT INR APTT D-Dimer ABG pH ABG pO2 ABG HCO3 ABG O2 Saturation ABG Base Excess ABG Hemoglobin Oxyhemoglobin Sodium Potassium Chloride Carbon Dioxide BUN Creatinine Glucose POC Glucose 123 H 114 H Lactic Acid Calcium Phosphorus Magnesium AST ALT Alkaline Phosphatase Lactate Dehydrogenase Troponin T C-Reactive Protein NT-Pro-B Natriuret Pep Total Protein Albumin LDL Cholesterol Direct Vitamin B12 Urine WBC (Auto) Fluid Glucose Fluid Total Protein Vancomycin Trough Crossmatch 12/01/21 12/01/21 12/01/21 05:00 05:25 11:54 WBC RBC Hgb Hct MCV MCH MCHC RDW Plt Count Eos % (Auto) Eos # (Auto) Seg Neuts % (Manual) Lymphocytes % (Manual) Seg Neutrophils # Seg Neutrophils # Man Lymphocytes # (Manual) Monocytes # (Manual) PT INR APTT D-Dimer ABG pH ABG pO2 ABG HCO3 ABG O2 Saturation ABG Base Excess ABG Hemoglobin Oxyhemoglobin Sodium 136 L Potassium Chloride Carbon Dioxide BUN 24 H Creatinine Glucose 117 H POC Glucose 108 H 107 H Lactic Acid Calcium 7.5 L Phosphorus Magnesium 1.60 L AST ALT Alkaline Phosphatase Lactate Dehydrogenase Troponin T C-Reactive Protein NT-Pro-B Natriuret Pep Total Protein Albumin LDL Cholesterol Direct Vitamin B12 Urine WBC (Auto) Fluid Glucose Fluid Total Protein Vancomycin Trough Crossmatch 12/01/21 12/02/21 12/02/21 17:40 00:07 04:20 WBC RBC 2.92 L Hgb 7.7 L Hct 24.3 L MCV MCH 26 L MCHC RDW 20.5 H Plt Count Eos % (Auto) Eos # (Auto) Seg Neuts % (Manual) Lymphocytes % (Manual) Seg Neutrophils # Seg Neutrophils # Man Lymphocytes # (Manual) Monocytes # (Manual) PT INR APTT D-Dimer ABG pH ABG pO2 ABG HCO3 ABG O2 Saturation ABG Base Excess ABG Hemoglobin Oxyhemoglobin Sodium Potassium Chloride Carbon Dioxide BUN Creatinine Glucose POC Glucose 123 H 110 H Lactic Acid Calcium Phosphorus Magnesium AST ALT Alkaline Phosphatase Lactate Dehydrogenase Troponin T C-Reactive Protein NT-Pro-B Natriuret Pep Total Protein Albumin LDL Cholesterol Direct Vitamin B12 Urine WBC (Auto) Fluid Glucose Fluid Total Protein Vancomycin Trough Crossmatch 12/02/21 12/02/21 12/02/21 04:20 11:17 18:20 WBC RBC Hgb Hct MCV MCH MCHC RDW Plt Count Eos % (Auto) Eos # (Auto) Seg Neuts % (Manual) Lymphocytes % (Manual) Seg Neutrophils # Seg Neutrophils # Man Lymphocytes # (Manual) Monocytes # (Manual) PT INR APTT D-Dimer ABG pH ABG pO2 ABG HCO3 ABG O2 Saturation ABG Base Excess ABG Hemoglobin Oxyhemoglobin Sodium 135 L Potassium Chloride Carbon Dioxide BUN 26 H Creatinine Glucose 121 H POC Glucose 117 H 113 H Lactic Acid Calcium 7.4 L Phosphorus Magnesium AST ALT Alkaline Phosphatase Lactate Dehydrogenase Troponin T C-Reactive Protein NT-Pro-B Natriuret Pep Total Protein Albumin LDL Cholesterol Direct Vitamin B12 Urine WBC (Auto) Fluid Glucose Fluid Total Protein Vancomycin Trough Crossmatch 12/03/21 12/03/21 12/03/21 00:12 04:00 04:00 WBC RBC 2.99 L Hgb 7.8 L Hct 24.6 L MCV MCH 26 L MCHC RDW 20.2 H Plt Count Eos % (Auto) Eos # (Auto) Seg Neuts % (Manual) Lymphocytes % (Manual) Seg Neutrophils # Seg Neutrophils # Man Lymphocytes # (Manual) Monocytes # (Manual) PT INR APTT D-Dimer ABG pH ABG pO2 ABG HCO3 ABG O2 Saturation ABG Base Excess ABG Hemoglobin Oxyhemoglobin Sodium 136 L Potassium Chloride Carbon Dioxide BUN 27 H Creatinine Glucose 133 H POC Glucose 121 H Lactic Acid Calcium 7.5 L Phosphorus Magnesium AST ALT Alkaline Phosphatase Lactate Dehydrogenase Troponin T C-Reactive Protein NT-Pro-B Natriuret Pep Total Protein Albumin LDL Cholesterol Direct Vitamin B12 Urine WBC (Auto) Fluid Glucose Fluid Total Protein Vancomycin Trough Crossmatch 12/03/21 12/03/21 12/03/21 06:30 11:13 16:00 WBC RBC Hgb Hct MCV MCH MCHC RDW Plt Count Eos % (Auto) Eos # (Auto) Seg Neuts % (Manual) Lymphocytes % (Manual) Seg Neutrophils # Seg Neutrophils # Man Lymphocytes # (Manual) Monocytes # (Manual) PT INR APTT D-Dimer ABG pH ABG pO2 ABG HCO3 ABG O2 Saturation ABG Base Excess ABG Hemoglobin Oxyhemoglobin Sodium Potassium Chloride Carbon Dioxide BUN Creatinine Glucose POC Glucose 129 H 125 H 125 H Lactic Acid Calcium Phosphorus Magnesium AST ALT Alkaline Phosphatase Lactate Dehydrogenase Troponin T C-Reactive Protein NT-Pro-B Natriuret Pep Total Protein Albumin LDL Cholesterol Direct Vitamin B12 Urine WBC (Auto) Fluid Glucose Fluid Total Protein Vancomycin Trough Crossmatch 12/03/21 12/04/21 12/04/21 23:32 04:00 05:36 WBC RBC Hgb Hct MCV MCH MCHC RDW Plt Count Eos % (Auto) Eos # (Auto) Seg Neuts % (Manual) Lymphocytes % (Manual) Seg Neutrophils # Seg Neutrophils # Man Lymphocytes # (Manual) Monocytes # (Manual) PT INR APTT D-Dimer ABG pH ABG pO2 ABG HCO3 ABG O2 Saturation ABG Base Excess ABG Hemoglobin Oxyhemoglobin Sodium Potassium 3.5 L Chloride Carbon Dioxide BUN 26 H Creatinine 0.5 L Glucose 151 H POC Glucose 133 H 142 H Lactic Acid Calcium 8.3 L Phosphorus Magnesium AST ALT Alkaline Phosphatase Lactate Dehydrogenase Troponin T C-Reactive Protein NT-Pro-B Natriuret Pep Total Protein Albumin LDL Cholesterol Direct Vitamin B12 Urine WBC (Auto) Fluid Glucose Fluid Total Protein Vancomycin Trough Crossmatch 12/04/21 12/04/21 12/05/21 11:24 15:58 04:36 WBC RBC Hgb Hct MCV MCH MCHC RDW Plt Count Eos % (Auto) Eos # (Auto) Seg Neuts % (Manual) Lymphocytes % (Manual) Seg Neutrophils # Seg Neutrophils # Man Lymphocytes # (Manual) Monocytes # (Manual) PT INR APTT D-Dimer ABG pH ABG pO2 ABG HCO3 ABG O2 Saturation ABG Base Excess ABG Hemoglobin Oxyhemoglobin Sodium Potassium Chloride Carbon Dioxide BUN 21 H Creatinine 0.5 L Glucose 119 H POC Glucose 130 H 111 H Lactic Acid Calcium 8.3 L Phosphorus Magnesium AST ALT Alkaline Phosphatase Lactate Dehydrogenase Troponin T C-Reactive Protein NT-Pro-B Natriuret Pep Total Protein Albumin LDL Cholesterol Direct Vitamin B12 Urine WBC (Auto) Fluid Glucose Fluid Total Protein Vancomycin Trough Crossmatch 12/05/21 12/05/21 12/05/21 05:15 10:40 11:12 WBC RBC 2.98 L Hgb 8.1 L Hct 24.6 L MCV MCH 27 L MCHC RDW 20.8 H Plt Count Eos % (Auto) Eos # (Auto) Seg Neuts % (Manual) Lymphocytes % (Manual) Seg Neutrophils # Seg Neutrophils # Man Lymphocytes # (Manual) Monocytes # (Manual) PT INR APTT D-Dimer ABG pH ABG pO2 ABG HCO3 ABG O2 Saturation ABG Base Excess ABG Hemoglobin Oxyhemoglobin Sodium Potassium Chloride Carbon Dioxide BUN Creatinine Glucose POC Glucose 107 H 110 H Lactic Acid Calcium Phosphorus Magnesium AST ALT Alkaline Phosphatase Lactate Dehydrogenase Troponin T C-Reactive Protein NT-Pro-B Natriuret Pep Total Protein Albumin LDL Cholesterol Direct Vitamin B12 Urine WBC (Auto) Fluid Glucose Fluid Total Protein Vancomycin Trough Crossmatch 12/05/21 12/06/21 12/06/21 23:39 04:25 04:25 WBC RBC 2.95 L Hgb 7.9 L Hct 24.7 L MCV MCH 27 L MCHC RDW 20.9 H Plt Count Eos % (Auto) Eos # (Auto) Seg Neuts % (Manual) Lymphocytes % (Manual) Seg Neutrophils # Seg Neutrophils # Man Lymphocytes # (Manual) Monocytes # (Manual) PT INR APTT D-Dimer ABG pH ABG pO2 ABG HCO3 ABG O2 Saturation ABG Base Excess ABG Hemoglobin Oxyhemoglobin Sodium Potassium Chloride Carbon Dioxide BUN 22 H Creatinine 0.5 L Glucose 136 H POC Glucose 118 H Lactic Acid Calcium 8.2 L Phosphorus Magnesium AST ALT Alkaline Phosphatase Lactate Dehydrogenase Troponin T C-Reactive Protein NT-Pro-B Natriuret Pep Total Protein Albumin LDL Cholesterol Direct Vitamin B12 Urine WBC (Auto) Fluid Glucose Fluid Total Protein Vancomycin Trough Crossmatch 12/06/21 12/06/21 12/07/21 05:28 11:27 04:00 WBC RBC Hgb 7.2 L Hct 21.8 L MCV MCH MCHC RDW Plt Count Eos % (Auto) Eos # (Auto) Seg Neuts % (Manual) Lymphocytes % (Manual) Seg Neutrophils # Seg Neutrophils # Man Lymphocytes # (Manual) Monocytes # (Manual) PT INR APTT D-Dimer ABG pH ABG pO2 ABG HCO3 ABG O2 Saturation ABG Base Excess ABG Hemoglobin Oxyhemoglobin Sodium Potassium Chloride Carbon Dioxide BUN Creatinine Glucose POC Glucose 142 H 126 H Lactic Acid Calcium Phosphorus Magnesium AST ALT Alkaline Phosphatase Lactate Dehydrogenase Troponin T C-Reactive Protein NT-Pro-B Natriuret Pep Total Protein Albumin LDL Cholesterol Direct Vitamin B12 Urine WBC (Auto) Fluid Glucose Fluid Total Protein Vancomycin Trough Crossmatch 12/07/21 12/07/21 12/07/21 04:00 05:30 11:12 WBC RBC Hgb Hct MCV MCH MCHC RDW Plt Count Eos % (Auto) Eos # (Auto) Seg Neuts % (Manual) Lymphocytes % (Manual) Seg Neutrophils # Seg Neutrophils # Man Lymphocytes # (Manual) Monocytes # (Manual) PT INR APTT D-Dimer ABG pH ABG pO2 ABG HCO3 ABG O2 Saturation ABG Base Excess ABG Hemoglobin Oxyhemoglobin Sodium Potassium Chloride Carbon Dioxide BUN 22 H Creatinine Glucose 119 H POC Glucose 121 H 124 H Lactic Acid Calcium 8.0 L Phosphorus Magnesium AST ALT Alkaline Phosphatase Lactate Dehydrogenase Troponin T C-Reactive Protein NT-Pro-B Natriuret Pep Total Protein Albumin LDL Cholesterol Direct Vitamin B12 Urine WBC (Auto) Fluid Glucose Fluid Total Protein Vancomycin Trough Crossmatch 12/08/21 12/08/21 12/08/21 04:00 04:00 05:39 WBC RBC 2.81 L Hgb 7.7 L Hct 23.5 L MCV MCH MCHC RDW 21.2 H Plt Count Eos % (Auto) Eos # (Auto) Seg Neuts % (Manual) Lymphocytes % (Manual) Seg Neutrophils # Seg Neutrophils # Man Lymphocytes # (Manual) Monocytes # (Manual) PT INR APTT D-Dimer ABG pH ABG pO2 ABG HCO3 ABG O2 Saturation ABG Base Excess ABG Hemoglobin Oxyhemoglobin Sodium 135 L Potassium Chloride Carbon Dioxide BUN 23 H Creatinine Glucose 109 H POC Glucose 112 H Lactic Acid Calcium Phosphorus Magnesium AST ALT Alkaline Phosphatase Lactate Dehydrogenase Troponin T C-Reactive Protein NT-Pro-B Natriuret Pep Total Protein Albumin LDL Cholesterol Direct Vitamin B12 Urine WBC (Auto) Fluid Glucose Fluid Total Protein Vancomycin Trough Crossmatch 12/08/21 12/09/21 12/09/21 11:03 04:20 04:20 WBC RBC 2.67 L Hgb 7.6 L Hct 22.1 L MCV MCH MCHC RDW 20.8 H Plt Count Eos % (Auto) Eos # (Auto) Seg Neuts % (Manual) Lymphocytes % (Manual) Seg Neutrophils # Seg Neutrophils # Man Lymphocytes # (Manual) Monocytes # (Manual) PT INR APTT D-Dimer ABG pH ABG pO2 ABG HCO3 ABG O2 Saturation ABG Base Excess ABG Hemoglobin Oxyhemoglobin Sodium 135 L Potassium Chloride 97.8 L Carbon Dioxide BUN 26 H Creatinine Glucose 119 H POC Glucose 108 H Lactic Acid Calcium 7.7 L Phosphorus Magnesium AST ALT Alkaline Phosphatase Lactate Dehydrogenase Troponin T C-Reactive Protein NT-Pro-B Natriuret Pep Total Protein Albumin LDL Cholesterol Direct Vitamin B12 Urine WBC (Auto) Fluid Glucose Fluid Total Protein Vancomycin Trough Crossmatch 12/09/21 12/10/21 12/10/21 11:26 04:33 11:12 WBC RBC Hgb Hct MCV MCH MCHC RDW Plt Count Eos % (Auto) Eos # (Auto) Seg Neuts % (Manual) Lymphocytes % (Manual) Seg Neutrophils # Seg Neutrophils # Man Lymphocytes # (Manual) Monocytes # (Manual) PT INR APTT D-Dimer ABG pH ABG pO2 ABG HCO3 ABG O2 Saturation ABG Base Excess ABG Hemoglobin Oxyhemoglobin Sodium 136 L Potassium Chloride Carbon Dioxide BUN 27 H Creatinine Glucose 117 H POC Glucose 110 H 117 H Lactic Acid Calcium 8.2 L Phosphorus Magnesium AST ALT Alkaline Phosphatase Lactate Dehydrogenase Troponin T C-Reactive Protein NT-Pro-B Natriuret Pep Total Protein Albumin LDL Cholesterol Direct Vitamin B12 Urine WBC (Auto) Fluid Glucose Fluid Total Protein Vancomycin Trough Crossmatch 12/10/21 12/10/21 12/11/21 16:02 23:31 04:35 WBC RBC 2.57 L Hgb 7.0 L Hct 21.4 L MCV MCH 27 L MCHC RDW 21.1 H Plt Count Eos % (Auto) Eos # (Auto) Seg Neuts % (Manual) Lymphocytes % (Manual) Seg Neutrophils # Seg Neutrophils # Man Lymphocytes # (Manual) Monocytes # (Manual) PT INR APTT D-Dimer ABG pH ABG pO2 ABG HCO3 ABG O2 Saturation ABG Base Excess ABG Hemoglobin Oxyhemoglobin Sodium Potassium Chloride Carbon Dioxide BUN Creatinine Glucose POC Glucose 137 H 111 H Lactic Acid Calcium Phosphorus Magnesium AST ALT Alkaline Phosphatase Lactate Dehydrogenase Troponin T C-Reactive Protein NT-Pro-B Natriuret Pep Total Protein Albumin LDL Cholesterol Direct Vitamin B12 Urine WBC (Auto) Fluid Glucose Fluid Total Protein Vancomycin Trough Crossmatch 12/11/21 12/11/21 12/11/21 04:35 12:46 16:07 WBC RBC Hgb Hct MCV MCH MCHC RDW Plt Count Eos % (Auto) Eos # (Auto) Seg Neuts % (Manual) Lymphocytes % (Manual) Seg Neutrophils # Seg Neutrophils # Man Lymphocytes # (Manual) Monocytes # (Manual) PT INR APTT D-Dimer ABG pH ABG pO2 ABG HCO3 ABG O2 Saturation ABG Base Excess ABG Hemoglobin Oxyhemoglobin Sodium 136 L Potassium Chloride Carbon Dioxide BUN 27 H Creatinine Glucose 112 H POC Glucose 115 H 111 H Lactic Acid Calcium 7.6 L Phosphorus Magnesium AST ALT Alkaline Phosphatase Lactate Dehydrogenase Troponin T C-Reactive Protein NT-Pro-B Natriuret Pep Total Protein Albumin LDL Cholesterol Direct Vitamin B12 Urine WBC (Auto) Fluid Glucose Fluid Total Protein Vancomycin Trough Crossmatch 12/11/21 12/12/21 12/12/21 23:42 04:30 04:30 WBC RBC 2.60 L Hgb 7.1 L Hct 21.5 L MCV MCH 27 L MCHC RDW 20.3 H Plt Count Eos % (Auto) Eos # (Auto) Seg Neuts % (Manual) Lymphocytes % (Manual) Seg Neutrophils # Seg Neutrophils # Man Lymphocytes # (Manual) Monocytes # (Manual) PT INR APTT D-Dimer ABG pH ABG pO2 ABG HCO3 ABG O2 Saturation ABG Base Excess ABG Hemoglobin Oxyhemoglobin Sodium 135 L Potassium Chloride 97.9 L Carbon Dioxide BUN 26 H Creatinine 0.5 L Glucose 138 H POC Glucose 115 H Lactic Acid Calcium 8.2 L Phosphorus Magnesium AST ALT Alkaline Phosphatase Lactate Dehydrogenase Troponin T C-Reactive Protein NT-Pro-B Natriuret Pep Total Protein Albumin LDL Cholesterol Direct Vitamin B12 Urine WBC (Auto) Fluid Glucose Fluid Total Protein Vancomycin Trough Crossmatch 12/12/21 12/12/21 12/12/21 04:30 05:10 11:51 WBC RBC Hgb Hct MCV MCH MCHC RDW Plt Count Eos % (Auto) Eos # (Auto) Seg Neuts % (Manual) Lymphocytes % (Manual) Seg Neutrophils # Seg Neutrophils # Man Lymphocytes # (Manual) Monocytes # (Manual) PT INR APTT D-Dimer ABG pH ABG pO2 ABG HCO3 ABG O2 Saturation ABG Base Excess ABG Hemoglobin Oxyhemoglobin Sodium Potassium Chloride Carbon Dioxide BUN Creatinine Glucose POC Glucose 119 H 119 H Lactic Acid Calcium Phosphorus Magnesium AST ALT Alkaline Phosphatase Lactate Dehydrogenase Troponin T C-Reactive Protein NT-Pro-B Natriuret Pep Total Protein Albumin LDL Cholesterol Direct Vitamin B12 Urine WBC (Auto) Fluid Glucose Fluid Total Protein Vancomycin Trough Crossmatch See Detail 12/13/21 12/13/21 12/13/21 00:52 04:00 04:00 WBC RBC 2.73 L Hgb 7.4 L Hct 22.8 L MCV MCH 27 L MCHC RDW 20.5 H Plt Count Eos % (Auto) Eos # (Auto) Seg Neuts % (Manual) Lymphocytes % (Manual) Seg Neutrophils # Seg Neutrophils # Man Lymphocytes # (Manual) Monocytes # (Manual) PT INR APTT D-Dimer ABG pH ABG pO2 ABG HCO3 ABG O2 Saturation ABG Base Excess ABG Hemoglobin Oxyhemoglobin Sodium 134 L Potassium Chloride 96.7 L Carbon Dioxide BUN 23 H Creatinine 0.5 L Glucose 131 H POC Glucose 131 H Lactic Acid Calcium 8.1 L Phosphorus Magnesium AST ALT Alkaline Phosphatase Lactate Dehydrogenase Troponin T C-Reactive Protein NT-Pro-B Natriuret Pep Total Protein Albumin LDL Cholesterol Direct Vitamin B12 Urine WBC (Auto) Fluid Glucose Fluid Total Protein Vancomycin Trough Crossmatch 12/13/21 12/13/21 12/13/21 05:23 12:11 17:18 WBC RBC Hgb Hct MCV MCH MCHC RDW Plt Count Eos % (Auto) Eos # (Auto) Seg Neuts % (Manual) Lymphocytes % (Manual) Seg Neutrophils # Seg Neutrophils # Man Lymphocytes # (Manual) Monocytes # (Manual) PT INR APTT D-Dimer ABG pH ABG pO2 ABG HCO3 ABG O2 Saturation ABG Base Excess ABG Hemoglobin Oxyhemoglobin Sodium Potassium Chloride Carbon Dioxide BUN Creatinine Glucose POC Glucose 121 H 143 H 148 H Lactic Acid Calcium Phosphorus Magnesium AST ALT Alkaline Phosphatase Lactate Dehydrogenase Troponin T C-Reactive Protein NT-Pro-B Natriuret Pep Total Protein Albumin LDL Cholesterol Direct Vitamin B12 Urine WBC (Auto) Fluid Glucose Fluid Total Protein Vancomycin Trough Crossmatch 12/14/21 12/14/21 12/14/21 00:54 04:20 04:20 WBC RBC 2.39 L Hgb 6.5 L Hct 20.3 L MCV MCH 27 L MCHC RDW 20.3 H Plt Count Eos % (Auto) Eos # (Auto) Seg Neuts % (Manual) Lymphocytes % (Manual) Seg Neutrophils # Seg Neutrophils # Man Lymphocytes # (Manual) Monocytes # (Manual) PT INR APTT D-Dimer ABG pH ABG pO2 ABG HCO3 ABG O2 Saturation ABG Base Excess ABG Hemoglobin Oxyhemoglobin Sodium 130 L Potassium Chloride 93.5 L Carbon Dioxide BUN 25 H Creatinine Glucose 123 H POC Glucose 123 H Lactic Acid Calcium 8.0 L Phosphorus Magnesium AST ALT Alkaline Phosphatase Lactate Dehydrogenase Troponin T C-Reactive Protein NT-Pro-B Natriuret Pep Total Protein Albumin LDL Cholesterol Direct Vitamin B12 Urine WBC (Auto) Fluid Glucose Fluid Total Protein Vancomycin Trough Crossmatch 12/14/21 12/14/21 12/14/21 05:06 08:17 10:30 WBC RBC Hgb Hct MCV MCH MCHC RDW Plt Count Eos % (Auto) Eos # (Auto) Seg Neuts % (Manual) Lymphocytes % (Manual) Seg Neutrophils # Seg Neutrophils # Man Lymphocytes # (Manual) Monocytes # (Manual) PT INR APTT D-Dimer ABG pH ABG pO2 ABG HCO3 ABG O2 Saturation ABG Base Excess ABG Hemoglobin Oxyhemoglobin Sodium Potassium Chloride Carbon Dioxide BUN Creatinine Glucose POC Glucose 131 H 119 H Lactic Acid Calcium Phosphorus Magnesium AST ALT Alkaline Phosphatase Lactate Dehydrogenase Troponin T C-Reactive Protein NT-Pro-B Natriuret Pep Total Protein Albumin LDL Cholesterol Direct Vitamin B12 Urine WBC (Auto) Fluid Glucose Fluid Total Protein Vancomycin Trough Crossmatch See Detail 12/14/21 12/14/21 12/14/21 12:15 16:37 23:27 WBC RBC Hgb Hct MCV MCH MCHC RDW Plt Count Eos % (Auto) Eos # (Auto) Seg Neuts % (Manual) Lymphocytes % (Manual) Seg Neutrophils # Seg Neutrophils # Man Lymphocytes # (Manual) Monocytes # (Manual) PT INR APTT D-Dimer ABG pH ABG pO2 ABG HCO3 ABG O2 Saturation ABG Base Excess ABG Hemoglobin Oxyhemoglobin Sodium Potassium Chloride Carbon Dioxide BUN Creatinine Glucose POC Glucose 147 H 141 H 130 H Lactic Acid Calcium Phosphorus Magnesium AST ALT Alkaline Phosphatase Lactate Dehydrogenase Troponin T C-Reactive Protein NT-Pro-B Natriuret Pep Total Protein Albumin LDL Cholesterol Direct Vitamin B12 Urine WBC (Auto) Fluid Glucose Fluid Total Protein Vancomycin Trough Crossmatch 12/15/21 12/15/21 12/15/21 05:00 07:00 07:00 WBC 12.3 H RBC 3.27 L Hgb 8.8 L Hct 27.5 L D MCV MCH 27 L MCHC RDW 19.0 H Plt Count Eos % (Auto) Eos # (Auto) Seg Neuts % (Manual) Lymphocytes % (Manual) Seg Neutrophils # Seg Neutrophils # Man Lymphocytes # (Manual) Monocytes # (Manual) PT INR APTT D-Dimer ABG pH ABG pO2 ABG HCO3 ABG O2 Saturation ABG Base Excess ABG Hemoglobin Oxyhemoglobin Sodium 134 L Potassium Chloride 95.7 L Carbon Dioxide BUN 28 H Creatinine Glucose 129 H POC Glucose 129 H Lactic Acid Calcium 8.2 L Phosphorus Magnesium AST ALT Alkaline Phosphatase Lactate Dehydrogenase Troponin T C-Reactive Protein NT-Pro-B Natriuret Pep Total Protein Albumin LDL Cholesterol Direct Vitamin B12 Urine WBC (Auto) Fluid Glucose Fluid Total Protein Vancomycin Trough Crossmatch 12/15/21 12/15/21 12/15/21 11:18 16:00 23:39 WBC RBC Hgb Hct MCV MCH MCHC RDW Plt Count Eos % (Auto) Eos # (Auto) Seg Neuts % (Manual) Lymphocytes % (Manual) Seg Neutrophils # Seg Neutrophils # Man Lymphocytes # (Manual) Monocytes # (Manual) PT INR APTT D-Dimer ABG pH ABG pO2 ABG HCO3 ABG O2 Saturation ABG Base Excess ABG Hemoglobin Oxyhemoglobin Sodium Potassium Chloride Carbon Dioxide BUN Creatinine Glucose POC Glucose 139 H 137 H 146 H Lactic Acid Calcium Phosphorus Magnesium AST ALT Alkaline Phosphatase Lactate Dehydrogenase Troponin T C-Reactive Protein NT-Pro-B Natriuret Pep Total Protein Albumin LDL Cholesterol Direct Vitamin B12 Urine WBC (Auto) Fluid Glucose Fluid Total Protein Vancomycin Trough Crossmatch 12/16/21 12/16/21 12/16/21 05:24 10:21 10:21 WBC 15.3 H RBC 3.24 L Hgb 8.9 L Hct 27.7 L MCV MCH MCHC RDW 19.0 H Plt Count Eos % (Auto) Eos # (Auto) Seg Neuts % (Manual) Lymphocytes % (Manual) Seg Neutrophils # Seg Neutrophils # Man Lymphocytes # (Manual) Monocytes # (Manual) PT INR APTT D-Dimer ABG pH ABG pO2 ABG HCO3 ABG O2 Saturation ABG Base Excess ABG Hemoglobin Oxyhemoglobin Sodium 131 L Potassium 3.5 L Chloride 92.7 L Carbon Dioxide BUN 36 H Creatinine Glucose 160 H POC Glucose 121 H Lactic Acid Calcium Phosphorus Magnesium 1.60 L AST ALT Alkaline Phosphatase Lactate Dehydrogenase Troponin T C-Reactive Protein NT-Pro-B Natriuret Pep Total Protein Albumin LDL Cholesterol Direct Vitamin B12 Urine WBC (Auto) Fluid Glucose Fluid Total Protein Vancomycin Trough Crossmatch 12/16/21 12/16/21 12/16/21 11:21 18:28 20:52 WBC RBC Hgb Hct MCV MCH MCHC RDW Plt Count Eos % (Auto) Eos # (Auto) Seg Neuts % (Manual) Lymphocytes % (Manual) Seg Neutrophils # Seg Neutrophils # Man Lymphocytes # (Manual) Monocytes # (Manual) PT INR APTT D-Dimer ABG pH 7.479 H ABG pO2 79.3 L ABG HCO3 27.3 H ABG O2 Saturation ABG Base Excess 3.6 H ABG Hemoglobin 9.1 L Oxyhemoglobin 94.9 L Sodium Potassium Chloride Carbon Dioxide BUN Creatinine Glucose POC Glucose 153 H 132 H Lactic Acid Calcium Phosphorus Magnesium AST ALT Alkaline Phosphatase Lactate Dehydrogenase Troponin T C-Reactive Protein NT-Pro-B Natriuret Pep Total Protein Albumin LDL Cholesterol Direct Vitamin B12 Urine WBC (Auto) Fluid Glucose Fluid Total Protein Vancomycin Trough Crossmatch 12/16/21 12/17/21 12/17/21 23:30 04:25 04:25 WBC 12.3 H RBC 2.16 L Hgb 6.0 L Hct 18.1 L* D MCV MCH MCHC RDW 19.4 H Plt Count Eos % (Auto) Eos # (Auto) Seg Neuts % (Manual) Lymphocytes % (Manual) Seg Neutrophils # Seg Neutrophils # Man Lymphocytes # (Manual) Monocytes # (Manual) PT INR APTT D-Dimer ABG pH ABG pO2 ABG HCO3 ABG O2 Saturation ABG Base Excess ABG Hemoglobin Oxyhemoglobin Sodium 132 L Potassium 3.2 L Chloride 112.0 H Carbon Dioxide BUN 32 H Creatinine Glucose 122 H POC Glucose 137 H Lactic Acid Calcium 6.8 L D Phosphorus Magnesium AST ALT Alkaline Phosphatase Lactate Dehydrogenase Troponin T C-Reactive Protein NT-Pro-B Natriuret Pep Total Protein Albumin LDL Cholesterol Direct Vitamin B12 Urine WBC (Auto) Fluid Glucose Fluid Total Protein Vancomycin Trough Crossmatch 12/17/21 12/17/21 12/17/21 05:30 11:49 14:45 WBC RBC Hgb 9.7 L D Hct MCV MCH MCHC RDW Plt Count Eos % (Auto) Eos # (Auto) Seg Neuts % (Manual) Lymphocytes % (Manual) Seg Neutrophils # Seg Neutrophils # Man Lymphocytes # (Manual) Monocytes # (Manual) PT INR APTT D-Dimer ABG pH ABG pO2 ABG HCO3 ABG O2 Saturation ABG Base Excess ABG Hemoglobin Oxyhemoglobin Sodium Potassium Chloride Carbon Dioxide BUN Creatinine Glucose POC Glucose 137 H 143 H Lactic Acid Calcium Phosphorus Magnesium AST ALT Alkaline Phosphatase Lactate Dehydrogenase Troponin T C-Reactive Protein NT-Pro-B Natriuret Pep Total Protein Albumin LDL Cholesterol Direct Vitamin B12 Urine WBC (Auto) Fluid Glucose Fluid Total Protein Vancomycin Trough Crossmatch 12/17/21 12/18/21 12/18/21 17:01 05:04 05:04 WBC 13.8 H RBC 3.44 L Hgb 9.9 L Hct 28.8 L MCV MCH MCHC RDW 18.1 H Plt Count Eos % (Auto) Eos # (Auto) Seg Neuts % (Manual) Lymphocytes % (Manual) Seg Neutrophils # Seg Neutrophils # Man Lymphocytes # (Manual) Monocytes # (Manual) PT INR APTT D-Dimer ABG pH ABG pO2 ABG HCO3 ABG O2 Saturation ABG Base Excess ABG Hemoglobin Oxyhemoglobin Sodium 132 L Potassium Chloride 97.4 L Carbon Dioxide BUN 38 H Creatinine Glucose 134 H POC Glucose 132 H Lactic Acid Calcium Phosphorus Magnesium AST ALT Alkaline Phosphatase Lactate Dehydrogenase Troponin T C-Reactive Protein NT-Pro-B Natriuret Pep Total Protein Albumin LDL Cholesterol Direct Vitamin B12 Urine WBC (Auto) Fluid Glucose Fluid Total Protein Vancomycin Trough Crossmatch 12/18/21 12/18/21 12/18/21 05:28 10:57 16:27 WBC RBC Hgb Hct MCV MCH MCHC RDW Plt Count Eos % (Auto) Eos # (Auto) Seg Neuts % (Manual) Lymphocytes % (Manual) Seg Neutrophils # Seg Neutrophils # Man Lymphocytes # (Manual) Monocytes # (Manual) PT INR APTT D-Dimer ABG pH ABG pO2 ABG HCO3 ABG O2 Saturation ABG Base Excess ABG Hemoglobin Oxyhemoglobin Sodium Potassium Chloride Carbon Dioxide BUN Creatinine Glucose POC Glucose 118 H 132 H 130 H Lactic Acid Calcium Phosphorus Magnesium AST ALT Alkaline Phosphatase Lactate Dehydrogenase Troponin T C-Reactive Protein NT-Pro-B Natriuret Pep Total Protein Albumin LDL Cholesterol Direct Vitamin B12 Urine WBC (Auto) Fluid Glucose Fluid Total Protein Vancomycin Trough Crossmatch 12/19/21 12/19/21 12/19/21 00:02 04:41 04:41 WBC 16.0 H RBC 3.45 L Hgb 9.7 L Hct 29.1 L MCV MCH MCHC RDW 17.8 H Plt Count Eos % (Auto) Eos # (Auto) Seg Neuts % (Manual) Lymphocytes % (Manual) Seg Neutrophils # Seg Neutrophils # Man Lymphocytes # (Manual) Monocytes # (Manual) PT INR APTT D-Dimer ABG pH ABG pO2 ABG HCO3 ABG O2 Saturation ABG Base Excess ABG Hemoglobin Oxyhemoglobin Sodium 133 L Potassium Chloride 97.9 L Carbon Dioxide BUN 36 H Creatinine 0.5 L Glucose 126 H POC Glucose 127 H Lactic Acid Calcium 8.3 L Phosphorus Magnesium AST ALT Alkaline Phosphatase Lactate Dehydrogenase Troponin T C-Reactive Protein NT-Pro-B Natriuret Pep Total Protein Albumin LDL Cholesterol Direct Vitamin B12 Urine WBC (Auto) Fluid Glucose Fluid Total Protein Vancomycin Trough Crossmatch 12/19/21 12/19/21 12/19/21 05:26 12:20 16:43 WBC RBC Hgb Hct MCV MCH MCHC RDW Plt Count Eos % (Auto) Eos # (Auto) Seg Neuts % (Manual) Lymphocytes % (Manual) Seg Neutrophils # Seg Neutrophils # Man Lymphocytes # (Manual) Monocytes # (Manual) PT INR APTT D-Dimer ABG pH ABG pO2 ABG HCO3 ABG O2 Saturation ABG Base Excess ABG Hemoglobin Oxyhemoglobin Sodium Potassium Chloride Carbon Dioxide BUN Creatinine Glucose POC Glucose 119 H 145 H 126 H Lactic Acid Calcium Phosphorus Magnesium AST ALT Alkaline Phosphatase Lactate Dehydrogenase Troponin T C-Reactive Protein NT-Pro-B Natriuret Pep Total Protein Albumin LDL Cholesterol Direct Vitamin B12 Urine WBC (Auto) Fluid Glucose Fluid Total Protein Vancomycin Trough Crossmatch 12/19/21 12/20/21 12/20/21 23:30 04:54 04:54 WBC 12.3 H RBC 3.54 L Hgb 10.0 L Hct 29.5 L MCV MCH MCHC RDW 17.8 H Plt Count Eos % (Auto) Eos # (Auto) Seg Neuts % (Manual) 88.0 H Lymphocytes % (Manual) 6.0 L Seg Neutrophils # Seg Neutrophils # Man 10.8 H Lymphocytes # (Manual) 0.7 L Monocytes # (Manual) PT INR APTT D-Dimer ABG pH ABG pO2 ABG HCO3 ABG O2 Saturation ABG Base Excess ABG Hemoglobin Oxyhemoglobin Sodium 131 L Potassium Chloride 96.2 L Carbon Dioxide BUN 36 H Creatinine 0.5 L Glucose 130 H POC Glucose 117 H Lactic Acid Calcium Phosphorus Magnesium AST ALT Alkaline Phosphatase Lactate Dehydrogenase Troponin T C-Reactive Protein NT-Pro-B Natriuret Pep Total Protein Albumin LDL Cholesterol Direct Vitamin B12 Urine WBC (Auto) Fluid Glucose Fluid Total Protein Vancomycin Trough Crossmatch 12/20/21 12/20/21 12/20/21 05:20 11:51 17:30 WBC RBC Hgb Hct MCV MCH MCHC RDW Plt Count Eos % (Auto) Eos # (Auto) Seg Neuts % (Manual) Lymphocytes % (Manual) Seg Neutrophils # Seg Neutrophils # Man Lymphocytes # (Manual) Monocytes # (Manual) PT INR APTT D-Dimer ABG pH ABG pO2 ABG HCO3 ABG O2 Saturation ABG Base Excess ABG Hemoglobin Oxyhemoglobin Sodium Potassium Chloride Carbon Dioxide BUN Creatinine Glucose POC Glucose 126 H 119 H 127 H Lactic Acid Calcium Phosphorus Magnesium AST ALT Alkaline Phosphatase Lactate Dehydrogenase Troponin T C-Reactive Protein NT-Pro-B Natriuret Pep Total Protein Albumin LDL Cholesterol Direct Vitamin B12 Urine WBC (Auto) Fluid Glucose Fluid Total Protein Vancomycin Trough Crossmatch 12/21/21 12/21/21 12/21/21 00:45 04:21 04:21 WBC RBC 3.47 L Hgb 9.4 L Hct 29.2 L MCV MCH 27 L MCHC RDW 18.1 H Plt Count Eos % (Auto) Eos # (Auto) Seg Neuts % (Manual) Lymphocytes % (Manual) Seg Neutrophils # Seg Neutrophils # Man Lymphocytes # (Manual) Monocytes # (Manual) PT INR APTT D-Dimer ABG pH ABG pO2 ABG HCO3 ABG O2 Saturation ABG Base Excess ABG Hemoglobin Oxyhemoglobin Sodium 134 L Potassium Chloride Carbon Dioxide BUN 35 H Creatinine 0.5 L Glucose 122 H POC Glucose 125 H Lactic Acid Calcium 8.2 L Phosphorus Magnesium AST ALT Alkaline Phosphatase Lactate Dehydrogenase Troponin T C-Reactive Protein NT-Pro-B Natriuret Pep Total Protein Albumin LDL Cholesterol Direct Vitamin B12 Urine WBC (Auto) Fluid Glucose Fluid Total Protein Vancomycin Trough Crossmatch 12/21/21 12/21/21 12/21/21 05:38 11:29 16:16 WBC RBC Hgb Hct MCV MCH MCHC RDW Plt Count Eos % (Auto) Eos # (Auto) Seg Neuts % (Manual) Lymphocytes % (Manual) Seg Neutrophils # Seg Neutrophils # Man Lymphocytes # (Manual) Monocytes # (Manual) PT INR APTT D-Dimer ABG pH ABG pO2 ABG HCO3 ABG O2 Saturation ABG Base Excess ABG Hemoglobin Oxyhemoglobin Sodium Potassium Chloride Carbon Dioxide BUN Creatinine Glucose POC Glucose 127 H 121 H 113 H Lactic Acid Calcium Phosphorus Magnesium AST ALT Alkaline Phosphatase Lactate Dehydrogenase Troponin T C-Reactive Protein NT-Pro-B Natriuret Pep Total Protein Albumin LDL Cholesterol Direct Vitamin B12 Urine WBC (Auto) Fluid Glucose Fluid Total Protein Vancomycin Trough Crossmatch 12/22/21 12/22/21 12/23/21 04:58 04:58 06:40 WBC 11.5 H RBC 3.43 L Hgb 9.8 L Hct 28.7 L MCV MCH MCHC RDW 18.5 H 17.9 H Plt Count Eos % (Auto) Eos # (Auto) Seg Neuts % (Manual) Lymphocytes % (Manual) Seg Neutrophils # Seg Neutrophils # Man Lymphocytes # (Manual) Monocytes # (Manual) PT INR APTT D-Dimer ABG pH ABG pO2 ABG HCO3 ABG O2 Saturation ABG Base Excess ABG Hemoglobin Oxyhemoglobin Sodium 130 L Potassium Chloride 97.8 L Carbon Dioxide BUN 31 H Creatinine 0.5 L Glucose 122 H POC Glucose Lactic Acid Calcium 7.9 L Phosphorus Magnesium AST ALT Alkaline Phosphatase Lactate Dehydrogenase Troponin T C-Reactive Protein NT-Pro-B Natriuret Pep Total Protein Albumin LDL Cholesterol Direct Vitamin B12 Urine WBC (Auto) Fluid Glucose Fluid Total Protein Vancomycin Trough Crossmatch 12/23/21 12/23/21 12/24/21 06:40 23:25 04:24 WBC 11.7 H RBC Hgb 9.8 L Hct MCV MCH 26 L MCHC RDW 18.1 H Plt Count Eos % (Auto) Eos # (Auto) Seg Neuts % (Manual) Lymphocytes % (Manual) Seg Neutrophils # Seg Neutrophils # Man Lymphocytes # (Manual) Monocytes # (Manual) PT INR APTT D-Dimer ABG pH ABG pO2 ABG HCO3 ABG O2 Saturation ABG Base Excess ABG Hemoglobin Oxyhemoglobin Sodium 136 L Potassium Chloride Carbon Dioxide BUN 27 H Creatinine 0.4 L Glucose 107 H POC Glucose 110 H Lactic Acid Calcium 8.1 L Phosphorus Magnesium AST ALT Alkaline Phosphatase Lactate Dehydrogenase Troponin T C-Reactive Protein NT-Pro-B Natriuret Pep Total Protein Albumin LDL Cholesterol Direct Vitamin B12 Urine WBC (Auto) Fluid Glucose Fluid Total Protein Vancomycin Trough Crossmatch 12/24/21 12/24/21 12/24/21 04:24 11:08 15:45 WBC RBC Hgb Hct MCV MCH MCHC RDW Plt Count Eos % (Auto) Eos # (Auto) Seg Neuts % (Manual) Lymphocytes % (Manual) Seg Neutrophils # Seg Neutrophils # Man Lymphocytes # (Manual) Monocytes # (Manual) PT INR APTT D-Dimer ABG pH ABG pO2 ABG HCO3 ABG O2 Saturation ABG Base Excess ABG Hemoglobin Oxyhemoglobin Sodium 132 L Potassium Chloride Carbon Dioxide BUN 27 H Creatinine 0.3 L Glucose 108 H POC Glucose 116 H 107 H Lactic Acid Calcium Phosphorus Magnesium AST ALT Alkaline Phosphatase Lactate Dehydrogenase Troponin T C-Reactive Protein NT-Pro-B Natriuret Pep Total Protein Albumin LDL Cholesterol Direct Vitamin B12 Urine WBC (Auto) Fluid Glucose Fluid Total Protein Vancomycin Trough Crossmatch 12/24/21 12/25/21 12/25/21 23:43 05:29 11:48 WBC RBC Hgb Hct MCV MCH MCHC RDW Plt Count Eos % (Auto) Eos # (Auto) Seg Neuts % (Manual) Lymphocytes % (Manual) Seg Neutrophils # Seg Neutrophils # Man Lymphocytes # (Manual) Monocytes # (Manual) PT INR APTT D-Dimer ABG pH ABG pO2 ABG HCO3 ABG O2 Saturation ABG Base Excess ABG Hemoglobin Oxyhemoglobin Sodium Potassium Chloride Carbon Dioxide BUN Creatinine Glucose POC Glucose 123 H 107 H 119 H Lactic Acid Calcium Phosphorus Magnesium AST ALT Alkaline Phosphatase Lactate Dehydrogenase Troponin T C-Reactive Protein NT-Pro-B Natriuret Pep Total Protein Albumin LDL Cholesterol Direct Vitamin B12 Urine WBC (Auto) Fluid Glucose Fluid Total Protein Vancomycin Trough Crossmatch 12/26/21 12/26/21 12/26/21 00:06 05:56 07:51 WBC 11.4 H RBC 3.40 L Hgb 9.3 L Hct 28.3 L MCV MCH 27 L MCHC RDW 18.2 H Plt Count Eos % (Auto) Eos # (Auto) Seg Neuts % (Manual) Lymphocytes % (Manual) Seg Neutrophils # Seg Neutrophils # Man Lymphocytes # (Manual) Monocytes # (Manual) PT INR APTT D-Dimer ABG pH ABG pO2 ABG HCO3 ABG O2 Saturation ABG Base Excess ABG Hemoglobin Oxyhemoglobin Sodium Potassium Chloride Carbon Dioxide BUN Creatinine Glucose POC Glucose 133 H 107 H Lactic Acid Calcium Phosphorus Magnesium AST ALT Alkaline Phosphatase Lactate Dehydrogenase Troponin T C-Reactive Protein NT-Pro-B Natriuret Pep Total Protein Albumin LDL Cholesterol Direct Vitamin B12 Urine WBC (Auto) Fluid Glucose Fluid Total Protein Vancomycin Trough Crossmatch 12/26/21 12/26/21 12/26/21 07:51 11:43 17:06 WBC RBC Hgb Hct MCV MCH MCHC RDW Plt Count Eos % (Auto) Eos # (Auto) Seg Neuts % (Manual) Lymphocytes % (Manual) Seg Neutrophils # Seg Neutrophils # Man Lymphocytes # (Manual) Monocytes # (Manual) PT INR APTT D-Dimer ABG pH ABG pO2 ABG HCO3 ABG O2 Saturation ABG Base Excess ABG Hemoglobin Oxyhemoglobin Sodium 136 L Potassium Chloride Carbon Dioxide BUN 25 H Creatinine 0.3 L Glucose 131 H POC Glucose 119 H 128 H Lactic Acid Calcium Phosphorus Magnesium AST ALT Alkaline Phosphatase Lactate Dehydrogenase Troponin T C-Reactive Protein NT-Pro-B Natriuret Pep Total Protein Albumin LDL Cholesterol Direct Vitamin B12 Urine WBC (Auto) Fluid Glucose Fluid Total Protein Vancomycin Trough Crossmatch 12/28/21 12/28/21 12/29/21 09:05 09:05 04:40 WBC RBC 3.19 L Hgb 8.9 L Hct 26.4 L MCV MCH 27 L MCHC RDW 18.4 H 17.9 H Plt Count Eos % (Auto) Eos # (Auto) Seg Neuts % (Manual) Lymphocytes % (Manual) Seg Neutrophils # Seg Neutrophils # Man Lymphocytes # (Manual) Monocytes # (Manual) PT INR APTT D-Dimer ABG pH ABG pO2 ABG HCO3 ABG O2 Saturation ABG Base Excess ABG Hemoglobin Oxyhemoglobin Sodium 135 L Potassium Chloride 97.8 L Carbon Dioxide BUN 18 H Creatinine 0.3 L Glucose POC Glucose Lactic Acid Calcium Phosphorus Magnesium AST ALT Alkaline Phosphatase Lactate Dehydrogenase Troponin T C-Reactive Protein NT-Pro-B Natriuret Pep Total Protein Albumin LDL Cholesterol Direct Vitamin B12 Urine WBC (Auto) Fluid Glucose Fluid Total Protein Vancomycin Trough Crossmatch 12/29/21 12/29/21 12/30/21 04:40 12:47 04:05 WBC RBC 3.29 L Hgb 8.7 L Hct 27.6 L MCV MCH 27 L MCHC RDW 17.6 H Plt Count Eos % (Auto) Eos # (Auto) Seg Neuts % (Manual) Lymphocytes % (Manual) Seg Neutrophils # Seg Neutrophils # Man Lymphocytes # (Manual) Monocytes # (Manual) PT INR APTT D-Dimer ABG pH ABG pO2 ABG HCO3 ABG O2 Saturation ABG Base Excess ABG Hemoglobin Oxyhemoglobin Sodium 136 L Potassium Chloride Carbon Dioxide BUN Creatinine 0.3 L Glucose POC Glucose 67 L Lactic Acid Calcium 8.3 L Phosphorus Magnesium AST ALT Alkaline Phosphatase Lactate Dehydrogenase Troponin T C-Reactive Protein NT-Pro-B Natriuret Pep Total Protein Albumin LDL Cholesterol Direct Vitamin B12 Urine WBC (Auto) Fluid Glucose Fluid Total Protein Vancomycin Trough Crossmatch 12/30/21 12/30/21 12/31/21 04:05 08:30 00:07 WBC RBC Hgb Hct MCV MCH MCHC RDW Plt Count Eos % (Auto) Eos # (Auto) Seg Neuts % (Manual) Lymphocytes % (Manual) Seg Neutrophils # Seg Neutrophils # Man Lymphocytes # (Manual) Monocytes # (Manual) PT INR APTT 41.8 H D-Dimer ABG pH ABG pO2 ABG HCO3 ABG O2 Saturation ABG Base Excess ABG Hemoglobin Oxyhemoglobin Sodium 136 L Potassium 3.5 L Chloride Carbon Dioxide BUN Creatinine 0.4 L Glucose POC Glucose 139 H Lactic Acid Calcium Phosphorus Magnesium 1.50 L AST ALT Alkaline Phosphatase Lactate Dehydrogenase Troponin T C-Reactive Protein NT-Pro-B Natriuret Pep Total Protein Albumin LDL Cholesterol Direct Vitamin B12 Urine WBC (Auto) Fluid Glucose Fluid Total Protein Vancomycin Trough Crossmatch 12/31/21 12/31/21 12/31/21 04:00 04:00 04:52 WBC RBC 3.05 L Hgb 8.5 L Hct 25.5 L MCV MCH MCHC RDW 18.2 H Plt Count Eos % (Auto) Eos # (Auto) Seg Neuts % (Manual) Lymphocytes % (Manual) Seg Neutrophils # Seg Neutrophils # Man Lymphocytes # (Manual) Monocytes # (Manual) PT INR APTT D-Dimer ABG pH ABG pO2 ABG HCO3 ABG O2 Saturation ABG Base Excess ABG Hemoglobin Oxyhemoglobin Sodium Potassium Chloride Carbon Dioxide BUN 19 H Creatinine 0.4 L Glucose 116 H POC Glucose 121 H Lactic Acid Calcium Phosphorus Magnesium AST ALT Alkaline Phosphatase Lactate Dehydrogenase Troponin T C-Reactive Protein NT-Pro-B Natriuret Pep Total Protein Albumin LDL Cholesterol Direct Vitamin B12 Urine WBC (Auto) Fluid Glucose Fluid Total Protein Vancomycin Trough Crossmatch 12/31/21 12/31/21 01/01/22 11:23 17:42 04:31 WBC RBC 2.83 L Hgb 7.7 L Hct 23.2 L MCV MCH 27 L MCHC RDW 18.3 H Plt Count Eos % (Auto) Eos # (Auto) Seg Neuts % (Manual) Lymphocytes % (Manual) Seg Neutrophils # Seg Neutrophils # Man Lymphocytes # (Manual) Monocytes # (Manual) PT INR APTT D-Dimer ABG pH ABG pO2 ABG HCO3 ABG O2 Saturation ABG Base Excess ABG Hemoglobin Oxyhemoglobin Sodium Potassium Chloride Carbon Dioxide BUN Creatinine Glucose POC Glucose 116 H 107 H Lactic Acid Calcium Phosphorus Magnesium AST ALT Alkaline Phosphatase Lactate Dehydrogenase Troponin T C-Reactive Protein NT-Pro-B Natriuret Pep Total Protein Albumin LDL Cholesterol Direct Vitamin B12 Urine WBC (Auto) Fluid Glucose Fluid Total Protein Vancomycin Trough Crossmatch 01/01/22 01/01/22 01/01/22 04:31 05:24 11:25 WBC RBC Hgb Hct MCV MCH MCHC RDW Plt Count Eos % (Auto) Eos # (Auto) Seg Neuts % (Manual) Lymphocytes % (Manual) Seg Neutrophils # Seg Neutrophils # Man Lymphocytes # (Manual) Monocytes # (Manual) PT INR APTT D-Dimer ABG pH ABG pO2 ABG HCO3 ABG O2 Saturation ABG Base Excess ABG Hemoglobin Oxyhemoglobin Sodium 135 L Potassium Chloride 97.7 L Carbon Dioxide BUN 21 H Creatinine 0.5 L Glucose 127 H POC Glucose 124 H 140 H Lactic Acid Calcium 8.0 L Phosphorus Magnesium AST ALT Alkaline Phosphatase Lactate Dehydrogenase Troponin T C-Reactive Protein NT-Pro-B Natriuret Pep Total Protein Albumin LDL Cholesterol Direct Vitamin B12 Urine WBC (Auto) Fluid Glucose Fluid Total Protein Vancomycin Trough Crossmatch 01/01/22 01/01/22 01/02/22 18:11 23:26 04:01 WBC RBC Hgb Hct MCV MCH MCHC RDW Plt Count Eos % (Auto) Eos # (Auto) Seg Neuts % (Manual) Lymphocytes % (Manual) Seg Neutrophils # Seg Neutrophils # Man Lymphocytes # (Manual) Monocytes # (Manual) PT INR APTT D-Dimer ABG pH ABG pO2 ABG HCO3 ABG O2 Saturation ABG Base Excess ABG Hemoglobin Oxyhemoglobin Sodium 131 L Potassium 3.5 L Chloride 94.8 L Carbon Dioxide BUN 27 H Creatinine Glucose 121 H POC Glucose 144 H 121 H Lactic Acid Calcium Phosphorus Magnesium AST ALT Alkaline Phosphatase Lactate Dehydrogenase Troponin T C-Reactive Protein NT-Pro-B Natriuret Pep Total Protein Albumin LDL Cholesterol Direct Vitamin B12 Urine WBC (Auto) Fluid Glucose Fluid Total Protein Vancomycin Trough Crossmatch 01/02/22 01/02/22 01/02/22 04:01 05:30 11:10 WBC RBC 2.57 L Hgb 7.1 L Hct 21.5 L MCV MCH MCHC RDW 18.1 H Plt Count Eos % (Auto) Eos # (Auto) Seg Neuts % (Manual) Lymphocytes % (Manual) Seg Neutrophils # Seg Neutrophils # Man Lymphocytes # (Manual) Monocytes # (Manual) PT INR APTT D-Dimer ABG pH ABG pO2 ABG HCO3 ABG O2 Saturation ABG Base Excess ABG Hemoglobin Oxyhemoglobin Sodium Potassium Chloride Carbon Dioxide BUN Creatinine Glucose POC Glucose 124 H 117 H Lactic Acid Calcium Phosphorus Magnesium AST ALT Alkaline Phosphatase Lactate Dehydrogenase Troponin T C-Reactive Protein NT-Pro-B Natriuret Pep Total Protein Albumin LDL Cholesterol Direct Vitamin B12 Urine WBC (Auto) Fluid Glucose Fluid Total Protein Vancomycin Trough Crossmatch 01/02/22 01/02/22 01/02/22 16:08 17:30 23:26 WBC RBC Hgb Hct MCV MCH MCHC RDW Plt Count Eos % (Auto) Eos # (Auto) Seg Neuts % (Manual) Lymphocytes % (Manual) Seg Neutrophils # Seg Neutrophils # Man Lymphocytes # (Manual) Monocytes # (Manual) PT INR APTT D-Dimer ABG pH ABG pO2 ABG HCO3 ABG O2 Saturation ABG Base Excess ABG Hemoglobin Oxyhemoglobin Sodium Potassium Chloride Carbon Dioxide BUN Creatinine Glucose POC Glucose 130 H 114 H Lactic Acid Calcium Phosphorus Magnesium AST ALT Alkaline Phosphatase Lactate Dehydrogenase Troponin T C-Reactive Protein NT-Pro-B Natriuret Pep Total Protein Albumin LDL Cholesterol Direct Vitamin B12 Urine WBC (Auto) Fluid Glucose Fluid Total Protein Vancomycin Trough 22.8 H Crossmatch 01/03/22 01/03/22 01/03/22 04:53 04:53 06:23 WBC RBC 2.82 L Hgb 7.7 L Hct 23.4 L MCV MCH 27 L MCHC RDW 18.0 H Plt Count Eos % (Auto) Eos # (Auto) Seg Neuts % (Manual) Lymphocytes % (Manual) Seg Neutrophils # Seg Neutrophils # Man Lymphocytes # (Manual) Monocytes # (Manual) PT INR APTT D-Dimer ABG pH ABG pO2 ABG HCO3 ABG O2 Saturation ABG Base Excess ABG Hemoglobin Oxyhemoglobin Sodium 133 L Potassium Chloride 96.2 L Carbon Dioxide BUN 30 H Creatinine Glucose 107 H POC Glucose 122 H Lactic Acid Calcium Phosphorus Magnesium AST ALT Alkaline Phosphatase Lactate Dehydrogenase Troponin T C-Reactive Protein NT-Pro-B Natriuret Pep Total Protein Albumin LDL Cholesterol Direct Vitamin B12 Urine WBC (Auto) Fluid Glucose Fluid Total Protein Vancomycin Trough Crossmatch 01/03/22 01/04/22 01/04/22 17:35 04:00 12:32 WBC RBC Hgb Hct MCV MCH MCHC RDW Plt Count Eos % (Auto) Eos # (Auto) Seg Neuts % (Manual) Lymphocytes % (Manual) Seg Neutrophils # Seg Neutrophils # Man Lymphocytes # (Manual) Monocytes # (Manual) PT INR APTT D-Dimer ABG pH ABG pO2 ABG HCO3 ABG O2 Saturation ABG Base Excess ABG Hemoglobin Oxyhemoglobin Sodium 132 L Potassium Chloride 92.8 L Carbon Dioxide BUN 30 H Creatinine Glucose 115 H POC Glucose 107 H 111 H Lactic Acid Calcium Phosphorus Magnesium 1.60 L AST ALT Alkaline Phosphatase Lactate Dehydrogenase Troponin T C-Reactive Protein NT-Pro-B Natriuret Pep Total Protein Albumin LDL Cholesterol Direct Vitamin B12 Urine WBC (Auto) Fluid Glucose Fluid Total Protein Vancomycin Trough Crossmatch 01/04/22 01/05/22 01/05/22 16:45 04:30 04:30 WBC RBC 3.11 L Hgb 8.4 L Hct 25.5 L MCV MCH 27 L MCHC RDW 17.6 H Plt Count Eos % (Auto) Eos # (Auto) Seg Neuts % (Manual) Lymphocytes % (Manual) Seg Neutrophils # Seg Neutrophils # Man Lymphocytes # (Manual) Monocytes # (Manual) PT INR APTT D-Dimer ABG pH ABG pO2 ABG HCO3 ABG O2 Saturation ABG Base Excess ABG Hemoglobin Oxyhemoglobin Sodium 135 L Potassium Chloride 93.6 L Carbon Dioxide BUN 29 H Creatinine Glucose POC Glucose 111 H Lactic Acid Calcium Phosphorus Magnesium AST ALT Alkaline Phosphatase Lactate Dehydrogenase Troponin T C-Reactive Protein NT-Pro-B Natriuret Pep Total Protein Albumin LDL Cholesterol Direct Vitamin B12 Urine WBC (Auto) Fluid Glucose Fluid Total Protein Vancomycin Trough Crossmatch 01/05/22 01/05/22 01/06/22 17:04 23:27 04:06 WBC RBC 2.89 L Hgb 7.7 L Hct 23.8 L MCV MCH 27 L MCHC RDW 18.0 H Plt Count Eos % (Auto) Eos # (Auto) Seg Neuts % (Manual) Lymphocytes % (Manual) Seg Neutrophils # Seg Neutrophils # Man Lymphocytes # (Manual) Monocytes # (Manual) PT INR APTT D-Dimer ABG pH ABG pO2 ABG HCO3 ABG O2 Saturation ABG Base Excess ABG Hemoglobin Oxyhemoglobin Sodium Potassium Chloride Carbon Dioxide BUN Creatinine Glucose POC Glucose 67 L 110 H Lactic Acid Calcium Phosphorus Magnesium AST ALT Alkaline Phosphatase Lactate Dehydrogenase Troponin T C-Reactive Protein NT-Pro-B Natriuret Pep Total Protein Albumin LDL Cholesterol Direct Vitamin B12 Urine WBC (Auto) Fluid Glucose Fluid Total Protein Vancomycin Trough Crossmatch 01/06/22 01/06/22 01/06/22 04:06 04:06 13:40 WBC RBC Hgb Hct MCV MCH MCHC RDW Plt Count Eos % (Auto) Eos # (Auto) Seg Neuts % (Manual) Lymphocytes % (Manual) Seg Neutrophils # Seg Neutrophils # Man Lymphocytes # (Manual) Monocytes # (Manual) PT 16.9 H INR 1.23 H APTT D-Dimer ABG pH ABG pO2 ABG HCO3 ABG O2 Saturation ABG Base Excess ABG Hemoglobin Oxyhemoglobin Sodium 132 L Potassium Chloride 92.3 L Carbon Dioxide BUN 26 H Creatinine Glucose 111 H POC Glucose Lactic Acid Calcium Phosphorus Magnesium AST ALT Alkaline Phosphatase Lactate Dehydrogenase Troponin T C-Reactive Protein NT-Pro-B Natriuret Pep Total Protein Albumin LDL Cholesterol Direct Vitamin B12 Urine WBC (Auto) Fluid Glucose 96 H Fluid Total Protein < 3.0 L Vancomycin Trough Crossmatch 01/06/22 01/07/22 01/07/22 23:41 05:20 11:30 WBC RBC Hgb Hct MCV MCH MCHC RDW Plt Count Eos % (Auto) Eos # (Auto) Seg Neuts % (Manual) Lymphocytes % (Manual) Seg Neutrophils # Seg Neutrophils # Man Lymphocytes # (Manual) Monocytes # (Manual) PT INR APTT D-Dimer ABG pH ABG pO2 ABG HCO3 ABG O2 Saturation ABG Base Excess ABG Hemoglobin Oxyhemoglobin Sodium Potassium Chloride Carbon Dioxide BUN Creatinine Glucose POC Glucose 120 H 111 H 113 H Lactic Acid Calcium Phosphorus Magnesium AST ALT Alkaline Phosphatase Lactate Dehydrogenase Troponin T C-Reactive Protein NT-Pro-B Natriuret Pep Total Protein Albumin LDL Cholesterol Direct Vitamin B12 Urine WBC (Auto) Fluid Glucose Fluid Total Protein Vancomycin Trough Crossmatch 01/07/22 01/07/22 01/08/22 17:00 23:41 11:26 WBC RBC Hgb Hct MCV MCH MCHC RDW Plt Count Eos % (Auto) Eos # (Auto) Seg Neuts % (Manual) Lymphocytes % (Manual) Seg Neutrophils # Seg Neutrophils # Man Lymphocytes # (Manual) Monocytes # (Manual) PT INR APTT D-Dimer ABG pH ABG pO2 ABG HCO3 ABG O2 Saturation ABG Base Excess ABG Hemoglobin Oxyhemoglobin Sodium Potassium Chloride Carbon Dioxide BUN Creatinine Glucose POC Glucose 121 H 110 H 129 H Lactic Acid Calcium Phosphorus Magnesium AST ALT Alkaline Phosphatase Lactate Dehydrogenase Troponin T C-Reactive Protein NT-Pro-B Natriuret Pep Total Protein Albumin LDL Cholesterol Direct Vitamin B12 Urine WBC (Auto) Fluid Glucose Fluid Total Protein Vancomycin Trough Crossmatch 01/08/22 01/09/22 01/10/22 16:23 18:13 00:27 WBC RBC Hgb Hct MCV MCH MCHC RDW Plt Count Eos % (Auto) Eos # (Auto) Seg Neuts % (Manual) Lymphocytes % (Manual) Seg Neutrophils # Seg Neutrophils # Man Lymphocytes # (Manual) Monocytes # (Manual) PT INR APTT D-Dimer ABG pH ABG pO2 ABG HCO3 ABG O2 Saturation ABG Base Excess ABG Hemoglobin Oxyhemoglobin Sodium Potassium Chloride Carbon Dioxide BUN Creatinine Glucose POC Glucose 118 H 118 H 111 H Lactic Acid Calcium Phosphorus Magnesium AST ALT Alkaline Phosphatase Lactate Dehydrogenase Troponin T C-Reactive Protein NT-Pro-B Natriuret Pep Total Protein Albumin LDL Cholesterol Direct Vitamin B12 Urine WBC (Auto) Fluid Glucose Fluid Total Protein Vancomycin Trough Crossmatch 01/10/22 01/10/22 01/11/22 04:00 05:47 05:10 WBC RBC Hgb Hct MCV MCH MCHC RDW Plt Count Eos % (Auto) Eos # (Auto) Seg Neuts % (Manual) Lymphocytes % (Manual) Seg Neutrophils # Seg Neutrophils # Man Lymphocytes # (Manual) Monocytes # (Manual) PT INR APTT D-Dimer ABG pH ABG pO2 ABG HCO3 ABG O2 Saturation ABG Base Excess ABG Hemoglobin Oxyhemoglobin Sodium 133 L Potassium Chloride 92.6 L Carbon Dioxide 31 H BUN 29 H Creatinine 0.5 L Glucose 115 H POC Glucose 106 H 118 H Lactic Acid Calcium Phosphorus Magnesium AST ALT Alkaline Phosphatase Lactate Dehydrogenase Troponin T C-Reactive Protein NT-Pro-B Natriuret Pep Total Protein Albumin LDL Cholesterol Direct Vitamin B12 Urine WBC (Auto) Fluid Glucose Fluid Total Protein Vancomycin Trough Crossmatch 01/11/22 01/11/22 01/11/22 11:14 17:14 23:52 WBC RBC Hgb Hct MCV MCH MCHC RDW Plt Count Eos % (Auto) Eos # (Auto) Seg Neuts % (Manual) Lymphocytes % (Manual) Seg Neutrophils # Seg Neutrophils # Man Lymphocytes # (Manual) Monocytes # (Manual) PT INR APTT D-Dimer ABG pH ABG pO2 ABG HCO3 ABG O2 Saturation ABG Base Excess ABG Hemoglobin Oxyhemoglobin Sodium Potassium Chloride Carbon Dioxide BUN Creatinine Glucose POC Glucose 136 H 117 H 110 H Lactic Acid Calcium Phosphorus Magnesium AST ALT Alkaline Phosphatase Lactate Dehydrogenase Troponin T C-Reactive Protein NT-Pro-B Natriuret Pep Total Protein Albumin LDL Cholesterol Direct Vitamin B12 Urine WBC (Auto) Fluid Glucose Fluid Total Protein Vancomycin Trough Crossmatch 01/12/22 01/13/22 01/13/22 05:39 11:15 17:21 WBC RBC Hgb Hct MCV MCH MCHC RDW Plt Count Eos % (Auto) Eos # (Auto) Seg Neuts % (Manual) Lymphocytes % (Manual) Seg Neutrophils # Seg Neutrophils # Man Lymphocytes # (Manual) Monocytes # (Manual) PT INR APTT D-Dimer ABG pH ABG pO2 ABG HCO3 ABG O2 Saturation ABG Base Excess ABG Hemoglobin Oxyhemoglobin Sodium Potassium Chloride Carbon Dioxide BUN Creatinine Glucose POC Glucose 110 H 113 H 121 H Lactic Acid Calcium Phosphorus Magnesium AST ALT Alkaline Phosphatase Lactate Dehydrogenase Troponin T C-Reactive Protein NT-Pro-B Natriuret Pep Total Protein Albumin LDL Cholesterol Direct Vitamin B12 Urine WBC (Auto) Fluid Glucose Fluid Total Protein Vancomycin Trough Crossmatch 01/14/22 01/14/22 01/15/22 05:33 11:28 00:13 WBC RBC Hgb Hct MCV MCH MCHC RDW Plt Count Eos % (Auto) Eos # (Auto) Seg Neuts % (Manual) Lymphocytes % (Manual) Seg Neutrophils # Seg Neutrophils # Man Lymphocytes # (Manual) Monocytes # (Manual) PT INR APTT D-Dimer ABG pH ABG pO2 ABG HCO3 ABG O2 Saturation ABG Base Excess ABG Hemoglobin Oxyhemoglobin Sodium Potassium Chloride Carbon Dioxide BUN Creatinine Glucose POC Glucose 136 H 117 H 109 H Lactic Acid Calcium Phosphorus Magnesium AST ALT Alkaline Phosphatase Lactate Dehydrogenase Troponin T C-Reactive Protein NT-Pro-B Natriuret Pep Total Protein Albumin LDL Cholesterol Direct Vitamin B12 Urine WBC (Auto) Fluid Glucose Fluid Total Protein Vancomycin Trough Crossmatch 01/15/22 01/15/2201/15/22 05:24 11:38 14:36 WBC RBC 3.11 L Hgb 8.4 L Hct 25.7 L MCV MCH 27 L MCHC RDW 17.2 H Plt Count Eos % (Auto) Eos # (Auto) Seg Neuts % (Manual) 82.0 H Lymphocytes % (Manual) 11.0 L Seg Neutrophils # Seg Neutrophils # Man 8.8 H Lymphocytes # (Manual) Monocytes # (Manual) PT INR APTT D-Dimer ABG pH ABG pO2 ABG HCO3 ABG O2 Saturation ABG Base Excess ABG Hemoglobin Oxyhemoglobin Sodium Potassium Chloride Carbon Dioxide BUN Creatinine Glucose POC Glucose 117 H 107 H Lactic Acid Calcium Phosphorus Magnesium AST ALT Alkaline Phosphatase Lactate Dehydrogenase Troponin T C-Reactive Protein NT-Pro-B Natriuret Pep Total Protein Albumin LDL Cholesterol Direct Vitamin B12 Urine WBC (Auto) Fluid Glucose Fluid Total Protein Vancomycin Trough Crossmatch 01/15/22 01/15/22 01/15/22 17:05 21:07 Unknown WBC RBC 2.97 L Hgb 8.0 L Hct 24.3 L MCV MCH 27 L MCHC RDW 17.2 H Plt Count Eos % (Auto) Eos # (Auto) Seg Neuts % (Manual) Lymphocytes % (Manual) Seg Neutrophils # Seg Neutrophils # Man Lymphocytes # (Manual) Monocytes # (Manual) PT INR APTT D-Dimer ABG pH ABG pO2 ABG HCO3 ABG O2 Saturation ABG Base Excess ABG Hemoglobin Oxyhemoglobin Sodium Potassium Chloride Carbon Dioxide BUN Creatinine Glucose POC Glucose 108 H Lactic Acid Calcium Phosphorus Magnesium AST ALT Alkaline Phosphatase Lactate Dehydrogenase Troponin T 0.088 H C-Reactive Protein NT-Pro-B Natriuret Pep Total Protein Albumin LDL Cholesterol Direct 44 L Vitamin B12 Urine WBC (Auto) Fluid Glucose Fluid Total Protein Vancomycin Trough Crossmatch 01/15/22 01/15/22 01/16/22 Unknown Unknown 05:21 WBC RBC Hgb Hct MCV MCH MCHC RDW Plt Count Eos % (Auto) Eos # (Auto) Seg Neuts % (Manual) Lymphocytes % (Manual) Seg Neutrophils # Seg Neutrophils # Man Lymphocytes # (Manual) Monocytes # (Manual) PT INR APTT D-Dimer ABG pH ABG pO2 ABG HCO3 ABG O2 Saturation ABG Base Excess ABG Hemoglobin Oxyhemoglobin Sodium 131 L 134 L 134 L Potassium 3.4 L Chloride 93.1 L 93.9 L 95.4 L Carbon Dioxide BUN 27 H 26 H 24 H Creatinine Glucose 110 H 168 H POC Glucose Lactic Acid Calcium 8.3 L 8.1 L Phosphorus Magnesium AST ALT Alkaline Phosphatase Lactate Dehydrogenase Troponin T 0.078 H C-Reactive Protein NT-Pro-B Natriuret Pep Total Protein Albumin LDL Cholesterol Direct Vitamin B12 Urine WBC (Auto) Fluid Glucose Fluid Total Protein Vancomycin Trough Crossmatch 01/16/22 01/16/22 01/17/22 12:59 23:22 05:20 WBC RBC Hgb Hct MCV MCH MCHC RDW Plt Count Eos % (Auto) Eos # (Auto) Seg Neuts % (Manual) Lymphocytes % (Manual) Seg Neutrophils # Seg Neutrophils # Man Lymphocytes # (Manual) Monocytes # (Manual) PT INR APTT D-Dimer ABG pH ABG pO2 ABG HCO3 ABG O2 Saturation ABG Base Excess ABG Hemoglobin Oxyhemoglobin Sodium Potassium Chloride Carbon Dioxide BUN Creatinine Glucose POC Glucose 159 H 113 H 111 H Lactic Acid Calcium Phosphorus Magnesium AST ALT Alkaline Phosphatase Lactate Dehydrogenase Troponin T C-Reactive Protein NT-Pro-B Natriuret Pep Total Protein Albumin LDL Cholesterol Direct Vitamin B12 Urine WBC (Auto) Fluid Glucose Fluid Total Protein Vancomycin Trough Crossmatch 01/17/22 01/17/22 01/18/22 14:24 17:14 05:39 WBC RBC Hgb Hct MCV MCH MCHC RDW Plt Count Eos % (Auto) Eos # (Auto) Seg Neuts % (Manual) Lymphocytes % (Manual) Seg Neutrophils # Seg Neutrophils # Man Lymphocytes # (Manual) Monocytes # (Manual) PT INR APTT D-Dimer ABG pH ABG pO2 55.0 L ABG HCO3 29.5 H ABG O2 Saturation 87.8 L ABG Base Excess 4.5 H ABG Hemoglobin 9.3 L Oxyhemoglobin 86.1 L Sodium Potassium Chloride Carbon Dioxide BUN Creatinine Glucose POC Glucose 126 H 108 H Lactic Acid Calcium Phosphorus Magnesium AST ALT Alkaline Phosphatase Lactate Dehydrogenase Troponin T C-Reactive Protein NT-Pro-B Natriuret Pep Total Protein Albumin LDL Cholesterol Direct Vitamin B12 Urine WBC (Auto) Fluid Glucose Fluid Total Protein Vancomycin Trough Crossmatch 01/18/22 01/18/22 01/19/22 11:53 12:50 00:04 WBC RBC Hgb Hct MCV MCH MCHC RDW Plt Count Eos % (Auto) Eos # (Auto) Seg Neuts % (Manual) Lymphocytes % (Manual) Seg Neutrophils # Seg Neutrophils # Man Lymphocytes # (Manual) Monocytes # (Manual) PT INR APTT D-Dimer ABG pH ABG pO2 112.3 H ABG HCO3 30.9 H ABG O2 Saturation ABG Base Excess 5.8 H ABG Hemoglobin 8.8 L Oxyhemoglobin Sodium Potassium Chloride Carbon Dioxide BUN Creatinine Glucose POC Glucose 113 H 115 H Lactic Acid Calcium Phosphorus Magnesium AST ALT Alkaline Phosphatase Lactate Dehydrogenase Troponin T C-Reactive Protein NT-Pro-B Natriuret Pep Total Protein Albumin LDL Cholesterol Direct Vitamin B12 Urine WBC (Auto) Fluid Glucose Fluid Total Protein Vancomycin Trough Crossmatch 01/19/22 01/19/22 01/19/22 04:50 04:50 11:51 WBC RBC 3.14 L Hgb 8.4 L Hct 26.0 L MCV MCH 27 L MCHC RDW 18.2 H Plt Count Eos % (Auto) Eos # (Auto) Seg Neuts % (Manual) Lymphocytes % (Manual) Seg Neutrophils # Seg Neutrophils # Man Lymphocytes # (Manual) Monocytes # (Manual) PT INR APTT D-Dimer ABG pH ABG pO2 ABG HCO3 ABG O2 Saturation ABG Base Excess ABG Hemoglobin Oxyhemoglobin Sodium 134 L Potassium Chloride 95.4 L Carbon Dioxide BUN 28 H Creatinine Glucose POC Glucose 111 H Lactic Acid Calcium Phosphorus Magnesium AST ALT Alkaline Phosphatase Lactate Dehydrogenase Troponin T C-Reactive Protein NT-Pro-B Natriuret Pep Total Protein Albumin LDL Cholesterol Direct Vitamin B12 Urine WBC (Auto) Fluid Glucose Fluid Total Protein Vancomycin Trough Crossmatch 01/19/22 01/20/22 01/21/22 20:45 11:43 23:32 WBC RBC Hgb Hct MCV MCH MCHC RDW Plt Count Eos % (Auto) Eos # (Auto) Seg Neuts % (Manual) Lymphocytes % (Manual) Seg Neutrophils # Seg Neutrophils # Man Lymphocytes # (Manual) Monocytes # (Manual) PT INR APTT D-Dimer ABG pH ABG pO2 95.2 H ABG HCO3 29.8 H ABG O2 Saturation ABG Base Excess 4.3 H ABG Hemoglobin 8.0 L Oxyhemoglobin Sodium Potassium Chloride Carbon Dioxide BUN Creatinine Glucose POC Glucose 118 H 113 H Lactic Acid Calcium Phosphorus Magnesium AST ALT Alkaline Phosphatase Lactate Dehydrogenase Troponin T C-Reactive Protein NT-Pro-B Natriuret Pep Total Protein Albumin LDL Cholesterol Direct Vitamin B12 Urine WBC (Auto) Fluid Glucose Fluid Total Protein Vancomycin Trough Crossmatch 01/22/22 01/22/22 01/23/22 11:12 17:54 09:36 WBC RBC Hgb Hct MCV MCH MCHC RDW Plt Count Eos % (Auto) Eos # (Auto) Seg Neuts % (Manual) Lymphocytes % (Manual) Seg Neutrophils # Seg Neutrophils # Man Lymphocytes # (Manual) Monocytes # (Manual) PT INR APTT D-Dimer ABG pH ABG pO2 ABG HCO3 ABG O2 Saturation ABG Base Excess ABG Hemoglobin Oxyhemoglobin Sodium Potassium Chloride Carbon Dioxide BUN Creatinine Glucose POC Glucose 110 H 115 H Lactic Acid Calcium Phosphorus Magnesium AST ALT Alkaline Phosphatase Lactate Dehydrogenase Troponin T C-Reactive Protein NT-Pro-B Natriuret Pep Total Protein Albumin LDL Cholesterol Direct Vitamin B12 Urine WBC (Auto) 16.0 H Fluid Glucose Fluid Total Protein Vancomycin Trough Crossmatch 01/23/22 01/23/22 01/24/22 11:49 11:50 05:37 WBC RBC Hgb Hct MCV MCH MCHC RDW Plt Count Eos % (Auto) Eos # (Auto) Seg Neuts % (Manual) Lymphocytes % (Manual) Seg Neutrophils # Seg Neutrophils # Man Lymphocytes # (Manual) Monocytes # (Manual) PT INR APTT D-Dimer ABG pH 7.310 L ABG pO2 43.9 L ABG HCO3 28.0 H ABG O2 Saturation 70.8 L ABG Base Excess ABG Hemoglobin 9.3 L Oxyhemoglobin 69.2 L Sodium Potassium Chloride Carbon Dioxide BUN Creatinine Glucose POC Glucose 194 H 118 H Lactic Acid Calcium Phosphorus Magnesium AST ALT Alkaline Phosphatase Lactate Dehydrogenase Troponin T C-Reactive Protein NT-Pro-B Natriuret Pep Total Protein Albumin LDL Cholesterol Direct Vitamin B12 Urine WBC (Auto) Fluid Glucose Fluid Total Protein Vancomycin Trough Crossmatch 01/24/22 01/25/22 01/25/22 11:56 12:20 13:17 WBC RBC Hgb Hct MCV MCH MCHC RDW Plt Count Eos % (Auto) Eos # (Auto) Seg Neuts % (Manual) Lymphocytes % (Manual) Seg Neutrophils # Seg Neutrophils # Man Lymphocytes # (Manual) Monocytes # (Manual) PT INR APTT D-Dimer ABG pH 7.488 H ABG pO2 58.9 L ABG HCO3 28.3 H ABG O2 Saturation 94.9 L ABG Base Excess 4.7 H ABG Hemoglobin 8.7 L Oxyhemoglobin 92.7 L Sodium Potassium Chloride Carbon Dioxide BUN Creatinine Glucose POC Glucose 119 H 126 H Lactic Acid Calcium Phosphorus Magnesium AST ALT Alkaline Phosphatase Lactate Dehydrogenase Troponin T C-Reactive Protein NT-Pro-B Natriuret Pep Total Protein Albumin LDL Cholesterol Direct Vitamin B12 Urine WBC (Auto) Fluid Glucose Fluid Total Protein Vancomycin Trough Crossmatch 01/26/22 01/26/22 01/26/22 05:59 10:16 10:16 WBC 12.7 H RBC Hgb 9.9 L Hct MCV MCH 27 L MCHC RDW 18.3 H Plt Count Eos % (Auto) 4.5 H Eos # (Auto) 0.6 H Seg Neuts % (Manual) Lymphocytes % (Manual) Seg Neutrophils # 8.2 H Seg Neutrophils # Man Lymphocytes # (Manual) Monocytes # (Manual) PT INR APTT D-Dimer ABG pH ABG pO2 ABG HCO3 ABG O2 Saturation ABG Base Excess ABG Hemoglobin Oxyhemoglobin Sodium Potassium Chloride 96.6 L Carbon Dioxide BUN 29 H Creatinine Glucose 140 H POC Glucose 130 H Lactic Acid Calcium Phosphorus Magnesium AST ALT Alkaline Phosphatase Lactate Dehydrogenase Troponin T C-Reactive Protein NT-Pro-B Natriuret Pep Total Protein Albumin LDL Cholesterol Direct Vitamin B12 Urine WBC (Auto) Fluid Glucose Fluid Total Protein Vancomycin Trough Crossmatch 01/26/22 01/27/22 01/27/22 11:49 00:22 12:48 WBC RBC Hgb Hct MCV MCH MCHC RDW Plt Count Eos % (Auto) Eos # (Auto) Seg Neuts % (Manual) Lymphocytes % (Manual) Seg Neutrophils # Seg Neutrophils # Man Lymphocytes # (Manual) Monocytes # (Manual) PT INR APTT D-Dimer ABG pH ABG pO2 ABG HCO3 ABG O2 Saturation ABG Base Excess ABG Hemoglobin Oxyhemoglobin Sodium Potassium Chloride Carbon Dioxide BUN Creatinine Glucose POC Glucose 161 H 107 H 131 H Lactic Acid Calcium Phosphorus Magnesium AST ALT Alkaline Phosphatase Lactate Dehydrogenase Troponin T C-Reactive Protein NT-Pro-B Natriuret Pep Total Protein Albumin LDL Cholesterol Direct Vitamin B12 Urine WBC (Auto) Fluid Glucose Fluid Total Protein Vancomycin Trough Crossmatch 01/27/22 01/29/22 01/29/22 23:08 04:40 05:52 WBC RBC Hgb Hct MCV MCH MCHC RDW Plt Count Eos % (Auto) Eos # (Auto) Seg Neuts % (Manual) Lymphocytes % (Manual) Seg Neutrophils # Seg Neutrophils # Man Lymphocytes # (Manual) Monocytes # (Manual) PT INR APTT D-Dimer ABG pH ABG pO2 ABG HCO3 ABG O2 Saturation ABG Base Excess ABG Hemoglobin Oxyhemoglobin Sodium Potassium Chloride 95.9 L Carbon Dioxide BUN 36 H Creatinine Glucose 127 H POC Glucose 109 H 108 H Lactic Acid Calcium Phosphorus Magnesium AST ALT Alkaline Phosphatase Lactate Dehydrogenase Troponin T C-Reactive Protein NT-Pro-B Natriuret Pep Total Protein Albumin LDL Cholesterol Direct Vitamin B12 Urine WBC (Auto) Fluid Glucose Fluid Total Protein Vancomycin Trough Crossmatch 01/29/22 01/30/22 01/30/22 11:26 05:29 12:44 WBC RBC Hgb Hct MCV MCH MCHC RDW Plt Count Eos % (Auto) Eos # (Auto) Seg Neuts % (Manual) Lymphocytes % (Manual) Seg Neutrophils # Seg Neutrophils # Man Lymphocytes # (Manual) Monocytes # (Manual) PT INR APTT D-Dimer ABG pH ABG pO2 ABG HCO3 ABG O2 Saturation ABG Base Excess ABG Hemoglobin Oxyhemoglobin Sodium Potassium Chloride Carbon Dioxide BUN Creatinine Glucose POC Glucose 119 H 109 H 108 H Lactic Acid Calcium Phosphorus Magnesium AST ALT Alkaline Phosphatase Lactate Dehydrogenase Troponin T C-Reactive Protein NT-Pro-B Natriuret Pep Total Protein Albumin LDL Cholesterol Direct Vitamin B12 Urine WBC (Auto) Fluid Glucose Fluid Total Protein Vancomycin Trough Crossmatch 01/30/22 01/31/22 01/31/22 23:34 04:08 05:12 WBC RBC Hgb Hct MCV MCH MCHC RDW Plt Count Eos % (Auto) Eos # (Auto) Seg Neuts % (Manual) Lymphocytes % (Manual) Seg Neutrophils # Seg Neutrophils # Man Lymphocytes # (Manual) Monocytes # (Manual) PT INR APTT D-Dimer ABG pH ABG pO2 ABG HCO3 ABG O2 Saturation ABG Base Excess ABG Hemoglobin Oxyhemoglobin Sodium 136 L Potassium Chloride 97.6 L Carbon Dioxide BUN 41 H Creatinine Glucose 120 H POC Glucose 109 H 111 H Lactic Acid Calcium Phosphorus Magnesium AST ALT Alkaline Phosphatase Lactate Dehydrogenase Troponin T C-Reactive Protein NT-Pro-B Natriuret Pep Total Protein Albumin LDL Cholesterol Direct Vitamin B12 Urine WBC (Auto) Fluid Glucose Fluid Total Protein Vancomycin Trough Crossmatch 02/01/22 02/02/22 02/03/22 04:00 08:36 04:00 WBC RBC 3.20 L Hgb 8.9 L Hct 26.5 L MCV MCH MCHC RDW 18.6 H Plt Count Eos % (Auto) Eos # (Auto) Seg Neuts % (Manual) Lymphocytes % (Manual) Seg Neutrophils # Seg Neutrophils # Man Lymphocytes # (Manual) Monocytes # (Manual) PT INR APTT D-Dimer ABG pH ABG pO2 ABG HCO3 ABG O2 Saturation ABG Base Excess ABG Hemoglobin Oxyhemoglobin Sodium 136 L 135 L Potassium Chloride 94.1 L 94.6 L Carbon Dioxide BUN 41 H 38 H Creatinine Glucose 118 H POC Glucose Lactic Acid Calcium Phosphorus Magnesium AST ALT Alkaline Phosphatase Lactate Dehydrogenase Troponin T C-Reactive Protein NT-Pro-B Natriuret Pep Total Protein Albumin LDL Cholesterol Direct Vitamin B12 Urine WBC (Auto) Fluid Glucose Fluid Total Protein Vancomycin Trough Crossmatch 02/03/22 04:00 WBC RBC Hgb Hct MCV MCH MCHC RDW Plt Count Eos % (Auto) Eos # (Auto) Seg Neuts % (Manual) Lymphocytes % (Manual) Seg Neutrophils # Seg Neutrophils # Man Lymphocytes # (Manual) Monocytes # (Manual) PT INR APTT D-Dimer ABG pH ABG pO2 ABG HCO3 ABG O2 Saturation ABG Base Excess ABG Hemoglobin Oxyhemoglobin Sodium 136 L Potassium Chloride 95.7 L Carbon Dioxide BUN 42 H Creatinine Glucose 114 H POC Glucose Lactic Acid Calcium Phosphorus Magnesium AST ALT Alkaline Phosphatase Lactate Dehydrogenase Troponin T C-Reactive Protein NT-Pro-B Natriuret Pep Total Protein Albumin LDL Cholesterol Direct Vitamin B12 Urine WBC (Auto) Fluid Glucose Fluid Total Protein Vancomycin Trough Crossmatch Allied health notes reviewed: nursing
[2022-02-04] MEDS: DEXTROSE 50% IN WATER (25GM) 50 ML SYRINGE IV PRN ×3 (13:29→19:06)
[2022-02-04] MEDS: ALPRAZolam 0.5 MG TAB FEEDTUBE PRN ×2 (16:04→22:02)
--- NOTE | 2022-02-04 16:25 | Progress Note ---
Assessment and Plan Assessment and plan: This is an 82-year-old female with DM, HTN , CHB s/p PPM, CAD s/p PCI and arthritis who presented to the emergency department on 11/04 for shortness of breath ongoing for the past 3 days, cough and according to family a fever of 102.2. Upon arrival of EMS patient was found to be tachypneic and hypoxic with SPO2 of 76% on room air which later improved to 88% on nonrebreather. Work-up in the emergency department included a CXR which showed bilateral interstitial pulmonary edema with bilateral pleural effusions and bibasilar opacities, leukocytosis and anemia with a hemoglobin of 6.1. Patient was admitted to the hospitalist service with acute anemia, acute hypoxic respiratory failure, bilateral pneumonia and COVID-19 PUI with consults to pulmonology, infectious disease and later cardiology. Patient was eventually intubated in the emergency department on 11/06. Hospital Course to date: 11/04/2021: Empiric therapy with iv levaquin/vancomycin. COVID PCR pending. Will consult ID. PCCM consulted, will follow recs. Hypotensive this AM, ordered bolus and fluids at 150 cc/hr. May require pressor support if bp does not improve. 11/05/2021: GBS on bcx +, currently on rocephin IV. Currently on bipap due to respiratory distress overnight. Worsening BL opacities on CXR. May be volume overload vs pneumonia. Unfortunately bp too low for lasix at this point. WIll continue levophed and bipap. Once able to tolerate, may do trial of albumin/lasix. Call attempt made to Niraj, no response. Will try again tomorrow to update. 11/06/2021: Decompensated overnight requiring intubation. CXR shows worsening interstitial infiltrates. Currenlty on dopamine, levophed, vasopressin. PICC line ordered. Advised RN to place gamble for I/O monitoring. Would benefit from diuresis but very volume overloaded. Prognosis guarded 11/08: Off sedation this am, remains unresponsive only grimace to pain. Hold all sedatives agents for now, patient is off pressors this am. Hypernatremia from today's lab- D5W X1bag, and low K repleted, repeat lab in the am. Severe constipation also noted from KUB, BR added. 11/09: Sudden SPO2 drop in the 60s this am. Patient was manually bagged and deep suctioned. Patient is currently stable on the vent, repeat CXR with no significant change. D/w CCM Mucomyst and brochodilator added. Patient mentation is unchanged, continue to hold off on sedative agents. Neurology consulted. 11/10: Acute DVT noted on bilateral lower extremity Doppler ultrasound therefore she was started on Lovenox treatment dose. Failed SBT. Hypernatremia and hyperchloremia noted, free water flush adjusted. 11/11: Patient noted to be febrile with increasing of the cytosis, UA/BC sent and CXR ordered. ID escalated antibiotics to cefepime. CXR demonstrated mucous plug, bedside bronchoscopy was performed and O ETT was changed over bougie from 6 cm to 7.5. Patient was noted to have a pneumothorax postprocedure and chest tube was placed. Family updated by [facility]. Free water flush increased and will add Jaswant supplementation. 11/12: Patient not noted to follow commands, hypernatremia worsen/persist, increasing free water flush, potassium and magnesium and phosphorus repleted. Hemoglobin noted to be 7./24.5 from 7.03/12 yesterday. We will continue to trend and monitor. Vent changes per [facility]. Repeat CXR showed no residual pneumothorax. Consider waterseal tomorrow. Given persistent leukocytosis antibiotics escalated to cefepime per ID. 11/13: Remains on cefepime and vancomycin, vent changes per [facility]. Anemia noted and given 1 unit PRBC. And beta-charleen held in setting of Levophed drip infusing. Remains on fentanyl drip. 11/14: Patient put on CPAP trial by [facility], will continue chest tube until after extubation. Will rest on assist control. CT brain was cancelled by tomato grader and reordered. 11/15: Patient removed chest tube overnight. Will obtain cxr. remains on low dose levo. CTH completed with no acute findings. RT to place on CPAP. 11/16: Hypernatremia/hyperchloremia noted on the increase of day water flushes. Anemia noted and ordered PRBC. asked RT to place on cpap but not done yet 11/17: Patient remains on the vent, awake and following commands. H&H stable s/p 2units PRBCs. GI on consult, no intervention at this time. Will continue protonix gtt and serial H&H Q6hrs. Keep patient NPO for now, D5w added for hypernatremia and NPO status. Plan for IVC filter placement today by Vascular. 11/18: Patient is s/p IVC filter. H&H continue to trend down, hbg 6.1 this am, 1 unit of PRBCs ordered. Plan for possible EGD today by GI. Keep patient NPO, continue PPI drip and serial H&H Q6hrs. Electrolytes repleted, repeat lab in the am 11/19: S/p EGD- larger duodenal ulcer noted, see operative note. GI recommendations noted also noted. H&H stable this am. Keep patient on protonix gtt for now. Will keep patient NPO, continue IVF and serial H&H for now. Electrolytes repleted, repeat labs in the am 11/20: Very agitated and restless this am, fentanyl gtt resumed. Patient remains on protonix gtt, H&H remains stable. Will switch protonix gtt to IV BID, continue carafate and okay to resume meds at this time. Will F/u with GI to see if TF can be resumed. Gamble was reinserted overnight for retention. Electrolytes repleted, repeat in the am. Plan for possible PST today for possible extubation per CCM. 11/21: Patient is now on seroquel and patient's home buspar resumed. Patient more calm this morning, fentanyl gtt is off. H&H remains stable and patient is tolerating TF. Patient had a runs of Vtach/PVCs this am, BB added per Cardio. Continue daily PS and wean trial for possible extubation. 11/22: Back on fentanyl gtt overnight , RASS o to -1, following commands. Patient failed PST this am due to increased work of breathing and low SPO2, ABG pending. Patient is also with worsen pitting edema, lasix is still on hold. Will discuss with cardio and CCM to possibly resume lasix. 11/23: MARIA DEL CARMEN overnight. Patient failed PST again this am. Per CCM plan for possible trach and PEG, hold off on IV lasix for now. General surgery consulted and family is aware of possible Trach and PEG. 11/24: Trach/PEG pending this week, continue SBT/SAT as tolerated. No acute events reported overnight. 11/25: Patient was n.p.o. overnight and will remain n.p.o. tonight for trach/PEG tomorrow morning. She failed to support trial again. KUB obtained due to distended belly. 11/26: Patient scheduled for tracheostomy and PEG tube placement today, has been n.p.o. since midnight. No acute events reported overnight. [facility] ordered simethicone scheduled. 11/27: No acute events reported overnight, patient received trach/PEG yesterday. Has been on feedings since last night. Still awaiting LTAC placement. 11/28: Patient magnesium repleted, repeat a.m. labs, SBT 11/29: Patient complains of chest pain but ECG obtained which showed no acute findings, ordered troponin. Patient failed CPAP yesterday and was trialed again today. levophed was restarted but will aggressively wean 11/30: Patient failed SBT. Continue supportive care. Started gabapentin today 12/01: MARIA DEL CARMEN overnight. Continue daily PST. Case management to arrange possible placement 12/02: Report of dark stools overnight, patient is hemodynamically stable. H&H stable, patient is on PPI. Will continue to trend H&H. Continue daily PST as tolerated. Awaiting LTAC vs SNF placement. 12/03: Hypotensive overnight, requiring low dose pressors. S/p X3 days of gentle diurese. Will continue to monitor, wean off pressors as tolerated for MAP of 65. Patient Failed PST yesterday, case management to follow up with insurance for po ssible LTAC placement. Continue daily PST as tolerated. PT eval and treat ordered. 12/04: Increased agitation and anxiety overnight, remains on buspar and seroquel, trazadone added to promote rest. Patient is now working with PT, keep patient engage and awake during the day so she can rest at night. No BM for over 5 days, BR was adjusted. Patient did not tolerate PST again yesterday, continue daily PST as tolerated. Continue to titrate pressor for MAP above 65. Pending possible LTAC placement, case management to arrange. 12/05: Still not getting much rest overnight, will add melatonin for sleep. Continue to engage patient during the day and promote rest at night. TF was held due to concern for possible bleeding, H&H remains stable and stools normal this am. Resume TF and continue PPI and carafate. Remains on low dose levophed, titrate as tolerated. Continue daily PST. Possible LTAC placement, awaiting approval. 12/06: MARIA DEL CARMEN overnight. Patient rested overnight. Continue supportive measures. Daily PST as tolerated. Awaiting possible LTAC placement 12/07: MARIA DEL CARMEN overnight. Plan for Tpiece trial today. Continue current supportive measures. Possible LTAC placement 12/08: Patient placed on pressure support trial again today, started on Xanax, no acute events reported overnight. Awaiting insurance approval for LTAC. 12/09: Levophed discontinued, LTAC transfer denied, started on midodrine and Lasix, ultrasound chest pending, started on Xanax 0.[address] De León updated family at bedside today. Started on Dilaudid every 3 hours as needed. 12/10: Patient placed on CPAP trial this morning, no acute events reported overnight. Will order ultrasound-guided thoracentesis. 12/11: Patient had a thoracentesis today, will decrease Xanax dosage and continue midodrine and diuresing. Patient failed CPAP today. 12/12: Patient not tolerate CPAP trials today, no acute events reported overnight 12/13: No acute events overnight. continue PSV trials as tolerated. Daughter up dated at bedside 12/14: Patient noted to be anemic today, ordered gastric occult. Patient seems to be oversedated therefore Xanax changed to as needed and fentanyl patch discontinued. We will continue to monitor hyponatremia. 12/15: MARIA DEL CARMEN overnight. s/p 1unit of PRBCs, H&H stable this am, no signs of any active bleeding. Continue daily PST as tolerated. Awaiting placement. 12/16: Hypertensive this am, Midodrine decreased. Continue daily PST. MARIA DEL CARMEN overnight 12/17: Patient Hgb dropped to 6 this am, no s/s of any active bleeding, VSS. Patient received 1unit of PRBC, will continue to trend H&H. Patient was pancultured and back on IV Abx due to persistent fevers yesterday. ID is also back on the case. Continue IV Abx per ID and f/u on cultures data for sensitivity. Patient also failed PST yesterday, continue daily PST as tolerated. Electrolytes repleted, repeat labs in the am. 12/18: Patient blood cultures is growing GPC 4 out 4 bottles. PICC line D/Rivas, patient is already on IV Abx-cefepine and Vanc and ID is following. Patient remains hemodynamically stable. Daily PST as tolerated adn PRN Benzo for anxiety. 12/19: MARIA DEL CARMEN overnight. Culture data noted, continue IV Abx per ID. Orders placed for repeat Bculture. Gamble D/C overnight, patient is voiding. Check bladder scan as needed for retention. Patient failed PST again today. Continue daily PST as tolerated. 12/20: Fevers improved, Cultures +MRSA, on Vanco per ID. Repeat 2D Echo to r/o endocarditis. Patient continue to fail PST, PEEP increased to 8 today. Continue pulmonary hygiene and vent wean per CCM. Sodium tab added for hyponatremia. 12/22: Patient on pressure support trial for approximately 4 hours today, midodrine dosage increased due to hypotension. Lasix discontinued. 12/23: Started on a.m. Seroquel dose, midodrine increased to 10 mg 3 times daily, 500 mL normal saline bolus. 12/24: Seroquel dose changed (25 every morning, 75 nightly). updated at bedside by Dr. De León. CPAP trials as tolerated. Continue vancomycin. Awaiting placement. 12/25: Continue CPAP as tolerated, added gasx for distention. Continue supportive care 12/26: Patient failed PSV this AM. no acute events overnight. 12/27: GI re-consulted due to abdominal distention. No acute events reported overnight. CPAP trials as tolerated. Dr. Mckenna will get a KUB to rule out possible obstruction. 12/28: KUB shows no acute process, CXR shows improvement. CPAP trials as tolerated. 12/29: CT Abd/pelvis noted with moderated bilateral pleural effusion, anasarca, and ascites. X1dose of IV lasix administered. D/w CCM and GI orders plan for thora and paracentesis by IR. Will also start patient on aldactone Qday. Patient is tolerating trickle feeds this am, continue TF and BR adjusted for constipation. Plan of care was discussed with patient and her at the bedside. Thorough discussion on patient's overall poor prognosis and that pat ient will most likely be vent dependent. Patient's voiced understanding of the info given. All questions and concerns were voiced at this time. 12/30: Patient did not tolerate thoracentesis in IR yesterday due to change in LOC and hypoxia. Plan for possible bedside thoracentesis and paracentesis today. Patient remains afebrile. Patient required intermodal dispatcher IV abx therapy [id number] left, orders placed for a PICC. Patient remains with sign. Piting edema and anasarca, X1 does of PO Zaroxolyn and 2m of IV lasix given. Electrolytes repleted, repeat lab in the am. 12/31: Tolerated Rt. thoracentesis at the bedside yesterday, 1.4L removed. Patient remains stable on the vent this am, tolerating CPAP today PS dropped to 14. Recent CXR noted, left pleural effusion improved. Patient tolerated gentle diurese yesterday, good urine output reported. D/w CCM hold off on Left thoracentesis today, continue PO Aldactone and additonal zaroxolyn and IV lasix again today. F/u CXR in the am. 01/01: This am CXR noted with worsening bilateral pleural effusion. Patient is stable and tolerating PST this am, however PS is back up to 20 this am. BP is soft this am will hold off on IV diuretic for today, continue PO Aldactone. D/w CCM continue gentle diurese as tolerated. Will reassess in the am. Continue support care. 01/02: MARIA DEL CARMEN overnight. VSS this am, tolerating PST. X1dose of 25% IV Albumin following with 20mg IV Lasix today. Continue daily gentle diurese if hemodynamics tolerate it. Continue to monitor and replace electrolytes as needed 01/03: Abdominal distention and vomiting overnight, 600cc of gastric residual removed, TF held. KUB with no acute abnormality. Reglan added X2days, resume TF, and continue BR. Patient is tolerating PST this am. Hemodynamics remains stable, will continue gentle IV diurese. close monitoring to renal function and electrolytes. 01/04: Tolerating TF, nausea/vomiting resolved, last BM on 01/03. Continue Reglan X1 more day. Patient continue to tolerate PST. D/W CCM continue gentle diurese. F/U CXR in the am. Possible US thoracentesis tomorrow. 01/05: no acute events overnight. scheduled for thoracentesis today but procedure pushed to tomorrow. TF restarted and will be NPO post MN. 01/06: planned thoracentesis today. Working with CM for ltac/snf approval. 01/07: s/p thoracentesis 120 cc appears to have been removed. Pulm recommendations noted, agree with continued diuresis and weaning. Continued planning with CM for ltac/snf placement. 01/08: No new issues. Continue vent weaning per pulmonary. Continuing to work with CM for placement. 01/09: No new issues. Continue vent weaning per pulmonary. Continuing to work with CM for placement. Ordered BMP for tomorrow to check kidney function as patient is currently being diuresed. 01/10: No new issues. Continue vent weaning/diuresis as directed by pulmonary medicine.BMP demonstrates normal renal function and potassium. Sodium and Chloride consistent with prior labs. Will recheck BMP in 2 days. Placement continues to be an issue as patient has been denied at all facilities. Will reasses with CM on wednesday. 01/11: Emesis overnight. Do not suspect that she is obstructed as she had 2 BM reported. Will order Reglan prn, drop TF rate to goal of 30 cc/hr. Will continue to work on placement. 01/12: Per RN patient had reported that she was tired and did not want to persist in her current state of health. D/w patient Niraj at patient bedside and stated that I recommended the patient/family at least talk with hospice to get a better understanding of their care. He was agreeable. I spoke with Ms. Busby who will help set up referral for hospice service so that family can be educated and, if the patient chooses, can pursue this option. 01/13: Continue supportive care. Family discussing about hospice. Continue reinforcement and continue weaning as tolerated. Prognosis is guarded and poor. Patient is clinically stable to transfer to the next level of care has not required any escalation in management. Has been stable on the vent awake alert following commands. 01/14: [id number]. Considering abdominal distention tube feedings hold along with the fact that the patient vomited yesterday. Will obtain a CT abdomen and pelvis to further evaluate placement. Discussed with nursing staff. Awaiting to have a family conversation with the for goals of care discussion again. 01/15: Continue supportive care, tube feed was restarted yesterday and tolerated, will start on simethicone for gas control and management. Patient is clinically stable for all lower level of care and continued weaning from the ventilator to appropriate facility. Family still undecided about goals of care. We will also check labs intermittently. 01/16: Patient today went for Chest tube placement on the right side for recurrent pleural effusion, with the goal of evaluating to see if we can wean off the vent. She has remained on the vent and with some persistent anxiety. she continues to tolerate tube feed. Again poor prognosis discussed with family. 01/17: Status post chest tube, with output of approximately 1880 cc since placement. Will continue to work with pulmonology for vent weaning. 01/18: Only tolerated 1 hr of t piece trial yesterday per RT. Patient PaO2 50s on abg last night. Will continue to work with pulmonary medicine for vent weaning. abg, cbc, bmp, xr chest ordered for am. 01/19: On t piece trial this AM. labs reviewed. CXR reviewed and appears stable with no new changes. AB.42/47.8/112.3/30.9. Will follow pulmonary recommendations and plan to continue to wean off of vent. 01/20: Per CM, [facility] declined patient admission as there are T stated the patient was not amenable from the vent. Yesterday patient had tolerated T-piece trial for approximately 12 hours. Today patient only tolerated for 45 minutes. Had desatted and stated that she was in pain during today's trial. Output yesterday from chest tube 1000 cc. Today it is 100 cc thus far. Will obtain chest x-ray tomorrow. 01/21: XR chest demonstrate mild improvement in pulmonary edema. Chest tube OP: 400 cc on 01/20 and 450 cc thus far today. On CPAP trial this am. Hopefully patient can eventually be weaned off of vent. Placement continues to be a challenge as patient has been denied at all facilities thus far, working with CM who has been in frequent contact with [facility]. 01/22: Yesterday the patient had lasted approximately 10 hours on T-piece trial. Output from chest tube approximately 525 cc yesterday. Thus far today patient has had 400 cc. Will follow with pulmonology regarding overall plan for chest tube and weaning patient off ventilator. 01/23: chest tube output 838 cc. Follow pulmonology plan re: chest tube and vent weaning. Placement remains challenging. 01/24: Very fatigue on t - piece trial yesterday afternoon, placed on full MV support. Will re-attempt today poss. Patient will complete Vancomycin course for MRSA tx on Friday 01/26. She has been afebrile sine 01/02. Current barriers to placement are weaning patient off of ventilator and removing chest tube as thus far all facilities have declined the patient. 01/25: AM CXR shows worsening pulmonary edema. On t-piece trial this AM. Patient still continues to have output from chest tube. Will follow pulmonary recs today. 01/26: Difficulty breathing this AM. Chest tube OP approx 1L yesterday. Ordered Albumin due to hypotension noted this AM. Lasix 20 mg IV in addition to po lasix ordered for pulmonary edema. Labs ordered. 01/27: Antibiotics completed for MRSA bacteremia yesterday. Will start po bactrim for suppression per ID recommendation. Remains on MV support this AM. Blood pressure improved..actually hypertensive. Chest tube OP 50 cc yesterday. Metabolic profile noted, BUN slightly elevated but Cr in range. Can continue with lasix diuresis. Will likely need pleurx penitentiary at some point in place of the chest tube. oysterman prognosis remains guarded to poor. 01/28: Continue current ATP to vapotherm, agree with possible pluerex catheter for intermittent drainage/ following review of xray will trial Bumex for diuresis. Poor prognosis. 01/29: Patient seen and examined doing well diuresing appropriately with a change to Bumex therapy. Discussed with leather skinner still with good volume output fluid overload will try to diurese over the weekend. We will check a chest x- ray in the morning to see improvement in the lungs and probably repeat on Wednesday. Anticipate discharge to SNF on Wednesday clinically she is improving likely will not need a Pleurx catheter on discharge. Prognosis remains guarded. 01/30: cxr shows unchanged, but clinically patient is stable, no increase oxygen demand, also negative fluid balance. Will continue bumex, monitor electrolytes and renal function, check cxr again on wednesday with anticipation to remove Chest tube soon and hopefully discharge to SNF on wednesday 01/31: Patient doing clinically well, will recheck chest xray in am, continue bumex, monitor electrolytes, wean off oxygen as tolerated. 02/01: Continue supportive care, will change Bumex to PO in anticipation for discharge, Await pulmonary input if chest tube can be clamped today for possible removal tomorrow. 02/02: Patient seen and examined, awaiting Chest tube removal. If patient continues to show improvement will plan for discharge in 24 to 48hrs after Chest tube removed Can be discharged to SNF with Bumex PO. 02/03: D/w pulmonology Dr Mendoza. Plan to remove chest tube today. Trach to be downsized. CM working on snf placement. 02/04: Home hospice arrangements made by CM. Scheduled to leave tomorrow afternoon. Neuro : Anxiety, chronic pain -Neurology consulted, appreciate recommendations -CT brain showed no acute events -EEG interpreted as abnormal record due to diffuse slowing noted throughout the recording, suggestive of encephalopathic process and/or drug effect, possibilities of postictal state cannot be totally excluded. Clinical correlation is in order -MRI brain not obtained-> patient has metal in her body -Repeat CT head with no acute findings -Reorientation as needed -Ammonia 42, B12 1823, TSH 1.5 -BuSpar, Seroquel, [place], gabapentin -prn xanax and Dilaudid Cardio: Acute Heart failure with reduced EF, h/o chronic heart block s/p PPM, HTN, CAD s/p PCI (2004), Moderate pulmonary HTN, cardiomyopathy -s/p vasopressor support with levophed -11/04 echocardiogram shows EF 30 to 35%, Moderate pulmonary HTN RVSP 49 -3/4 echo with 35-40% EF -Cardiology consulted, appreciate recommendations -Continue beta-charleen and statin therapy -Midodrine (titrate as needed) -Not on aspirin due to allergy -Blood pressure monitoring per protocol -As needed nitroglycerin Resp: Acute hypoxic respiratory failure secondary to bilateral pneumonia, recurrent bilateral pleural effusion s/p rt sided chest tube. Right pneumothorax (resolved). -COVID-19 PCR negative -Intubated on 11/06 with 6.00 ETT at 18 at the lip and changed over bougie on 11/11-7.50 ETT at 20 at the lip -See RT notes for titration -PSV as tolerated -Surgery consult for trach -Received trach/PEG on 11/26 -S/p bedside bronchoscopy on 11/11 complicated by pneumothorax -S/p chest tube placement for right pneumothorax and dislodgment by patient on 11/15 -ABG/CXR per CCM -VAP bundle -Right chest wall ultrasound showed pleural effusion s/p chest tube -12/11 US thoracentesis removed 1L fluid -12/29 US thoracentesis removed 1.4L fluid -01/06 thoracentesis planned -01/16 right-sided chest tube placed by IR -SPO2 monitoring GI: S/p GI bleed, duodenal ulcer, transaminitis -GI consulted, appreciate recommendations-signed off -Nutrition consult for tube feeding, currently on nepro TF 45 cc/hr, dropped to 30 cc/hr due to concerns for emesis. -BR: Senokot -s/p peg 11/26 -H2 charleen -Carafate -24-hour +428 ml -10/2021 Gastric occult positive -> EGD-> duodenal ulcer -12/14 occult stool positive - reglan prn. : Urinary retention (resolved), hyponatremia, hypochloremia -Strict intake and output -Trend BMP ID: Septic shock (POA-resolved), bilateral pneumonia, MRSA bacteremia/pna -Infectious disease consulted, appreciate recommendations -COVID-19 PCR negative -Presented with fevers, leukocytosis and hypotension -11/04 blood cultures positive with a group B strep bacteremia 12/19 however repeat blood cultures on the with no growth to date -Echo showed no evidence of vegetation -repeat echo showed EF 35-40 % with no vegetations -ABX therapy: IV vancomycin for 4 weeks (12/16-01/26) -Monitor WBC and fever curve -Bedside bronchoscopy for mucous plug on CXR 11/11 -f/u blood cultures Heme: Acute DVT in the right external iliac vein, common femoral vein, superior aspect of femoral vein, Acute microcytic anemia -Evidenced on bilateral upper lower extremity ultrasound -S/p 7 unit PRBC -Trend CBC -Transfuse for hemoglobin less than 7 -heparin gtt dc d/t anemia -S/p IVC filter Endo: h/o DM and hypothyroidism -Continue home Synthroid -SSI -Accu-Cheks every 6 -Avoid hypoglycemia The high probability of a clinically significant, sudden or life threatening deterioration of the [multi] system(s) required my full and direct attention, intervention and personal management. The aggregate critical care time was [60] minutes. This time is in addition to time spent performing reported procedures but includes the following: [x] Data Review and interpretation [x] Patient assessment and monitoring of vital signs [x] Documentation [x] Medication orders and management History Interval history: Patient seen and examined, resting comfortable. On ATC doing well. Hospitalist Physical - Physical exam Narrative exam: Physical Exam: VITAL SIGNS: Reviewed. GENERAL: The patient appears normally developed, Vital signs as documented. Frail appearing elderly woman. HEAD: No signs of head trauma. EYES: Pupils are equal. Extraocular motions intact. EARS: Hearing grossly intact. MOUTH: Oropharynx is normal. NECK: No adenopathy, no JVD. trach collar overlying tracheostomy tube in place. CHEST: Bl rhonchi. rt sided chest tube in place. CARDIAC: Regular rate and rhythm. S1 and S2, without murmurs, gallops, or rubs. VASCULAR: No Edema. Peripheral pulses normal and equal in all extremities. ABDOMEN: Soft, non tender and non distended. No rebound or guarding, and no masses palpated. Bowel Sounds normal. peg tube in place MUSCULOSKELETAL: Good range of motion of all major joints. Extremities without clubbing, cyanosis or edema. NEUROLOGIC EXAM: Alert and oriented x 4. no focal sensory or strength deficits. PSYCHIATRIC: anxious appearing SKIN: detail exam as documented in skin assessment - Constitutional Vitals: Temp Pulse Resp BP Pulse Ox 95 F L 61 11 L 146/56 100 02/04/22 12:00 02/04/22 16:00 02/04/22 16:00 02/04/22 16:00 02/04/22 16:00 General appearance: Present: no acute distress HEART Score - HEART Score Troponin: Troponin T 0.078 ng/mL (0.00-0.029) H 01/15/22 Unknown Results - Labs CBC & Chem 7: 02/03/22 04:00 02/03/22 04:00 Labs: Laboratory Last Values WBC 8.7 K/mm3 (4.5-11.0) 02/03/22 04:00 RBC 3.20 M/mm3 (3.65-5.03) L 02/03/22 04:00 Hgb 8.9 gm/dl (10.1-14.3) L 02/03/22 04:00 Hct 26.5 % (30.3-42.9) L 02/03/22 04:00 MCV 83 fl (79-97) 02/03/22 04:00 MCH 28 pg (28-32) 02/03/22 04:00 MCHC 33 % (30-34) 02/03/22 04:00 RDW 18.6 % (13.2-15.2) H 02/03/22 04:00 Plt Count 229 K/mm3 (140-440) 02/03/22 04:00 Lymph % (Auto) 25.6 % (13.4-35.0) 01/26/22 10:16 [place] % (Auto) 4.5 % (0.0-7.3) 01/26/22 10:16 Eos % (Auto) 4.5 % (0.0-4.3) H 01/26/22 10:16 Baso % (Auto) 0.7 % (0.0-1.8) 01/26/22 10:16 Lymph # (Auto) 3.2 K/mm3 (1.2-5.4) 01/26/22 10:16 [place] # (Auto) 0.6 K/mm3 (0.0-0.8) 01/26/22 10:16 Eos # (Auto) 0.6 K/mm3 (0.0-0.4) H 01/26/22 10:16 Baso # (Auto) 0.1 K/mm3 (0.0-0.1) 01/26/22 10:16 Add Manual Diff Complete 01/19/22 04:50 Total Counted 100 01/15/22 14:36 Seg Neutrophils % 64.7 % (40.0-70.0) 01/26/22 10:16 Seg Neuts % (Manual) 82.0 % (40.0-70.0) H 01/15/22 14:36 Band Neutrophils % 0 % 01/15/22 14:36 Lymphocytes % (Manual) 11.0 % (13.4-35.0) L 01/15/22 14:36 Reactive Lymphs % (Man) 0 % 01/15/22 14:36 Monocytes % (Manual) 5.0 % (0.0-7.3) 01/15/22 14:36 Eosinophils % (Manual) 1.0 % (0.0-4.3) 01/15/22 14:36 Basophils % (Manual) 1.0 % (0.0-1.8) 01/15/22 14:36 Metamyelocytes % 0 % 01/15/22 14:36 Myelocytes % 0 % 01/15/22 14:36 Promyelocytes % 0 % 01/15/22 14:36 Blast Cells % 0 % 01/15/22 14:36 Nucleated RBC % Not Reportable 01/15/22 14:36 Seg Neutrophils # 8.2 K/mm3 (1.8-7.7) H 01/26/22 10:16 Seg Neutrophils # Man 8.8 K/mm3 (1.8-7.7) H 01/15/22 14:36 Band Neutrophils # 0.0 K/mm3 01/15/22 14:36 Lymphocytes # (Manual) 1.2 K/mm3 (1.2-5.4) 01/15/22 14:36 Abs React Lymphs (Man) 0.0 K/mm3 01/15/22 14:36 Monocytes # (Manual) 0.5 K/mm3 (0.0-0.8) 01/15/22 14:36 Eosinophils # (Manual) 0.1 K/mm3 (0.0-0.4) 01/15/22 14:36 Basophils # (Manual) 0.1 K/mm3 (0.0-0.1) 01/15/22 14:36 Metamyelocytes # 0.0 K/mm3 01/15/22 14:36 Myelocytes # 0.0 K/mm3 01/15/22 14:36 Promyelocytes # 0.0 K/mm3 01/15/22 14:36 Blast Cells # 0.0 K/mm3 01/15/22 14:36 WBC Morphology Not Reportable 01/15/22 14:36 Hypersegmented Neuts Not Reportable 01/15/22 14:36 Hyposegmented Neuts Not Reportable 01/15/22 14:36 Hypogranular Neuts Not Reportable 01/15/22 14:36 Smudge Cells Not Reportable 01/15/22 14:36 Toxic Granulation Not Reportable 01/15/22 14:36 Toxic Vacuolation Not Reportable 01/15/22 14:36 Dohle Bodies Not Reportable 01/15/22 14:36 Pelger-Huet Anomaly Not Reportable 01/15/22 14:36 Irina Rods Not Reportable 01/15/22 14:36 Platelet Estimate Consistent w auto 01/15/22 14:36 Clumped Platelets Not Reportable 01/15/22 14:36 Plt Clumps, EDTA Not Reportable 01/15/22 14:36 Large Platelets Not Reportable 01/15/22 14:36 Giant Platelets Not Reportable 01/15/22 14:36 Platelet Satelliting Not Reportable 01/15/22 14:36 Plt Morphology Comment Not Reportable 01/15/22 14:36 RBC Morphology Not Reportable 01/15/22 14:36 Dimorphic RBCs Not Reportable 01/15/22 14:36 Polychromasia Not Reportable 01/15/22 14:36 Hypochromasia Not Reportable 01/15/22 14:36 Poikilocytosis Not Reportable 01/15/22 14:36 Anisocytosis 1+ 01/15/22 14:36 Microcytosis Not Reportable 01/15/22 14:36 Macrocytosis Not Reportable 01/15/22 14:36 Spherocytes Not Reportable 01/15/22 14:36 Pappenheimer Bodies Not Reportable 01/15/22 14:36 Sickle Cells Not Reportable 01/15/22 14:36 Target Cells Not Reportable 01/15/22 14:36 Tear Drop Cells Not Reportable 01/15/22 14:36 Ovalocytes Not Reportable 01/15/22 14:36 Helmet Cells Not Reportable 01/15/22 14:36 [place] Bodies Not Reportable 01/15/22 14:36 [place] Rings Not Reportable 01/15/22 14:36 Mal[place] Cells Not Reportable 01/15/22 14:36 Bite Cells Not Reportable 01/15/22 14:36 Crenated Cell Not Reportable 01/15/22 14:36 Elliptocytes Not Reportable 01/15/22 14:36 Acanthocytes (Spur) Not Reportable 01/15/22 14:36 Rouleaux Not Reportable 01/15/22 14:36 Hemoglobin C Crystals Not Reportable 01/15/22 14:36 Schistocytes Not Reportable 01/15/22 14:36 Malaria parasites Not Reportable 01/15/22 14:36 Godfrey Bodies Not Reportable 01/15/22 14:36 Hem Pathologist Commnt No 01/15/22 14:36 PT 16.9 Sec. (12.2-14.9) H 01/06/22 04:06 INR 1.23 (0.87-1.13) H 01/06/22 04:06 APTT 41.8 Sec. (24.2-36.6) H 12/30/21 08:30 D-Dimer 2655.00 ng/mlDDU (0-234) H 11/11/21 04:28 ABG pH 7.488 pH Units (7.350-7.450) H 01/25/22 12:20 ABG pCO2 38.2 mm Hg 01/25/22 12:20 ABG pO2 58.9 mm Hg (80.0-90.0) L 01/25/22 12:20 ABG HCO3 28.3 mmol/L (20.0-26.0) H 01/25/22 12:20 ABG O2 Saturation 94.9 % (95.0-99.0) L 01/25/22 12:20 ABG O2 Content 11.4 (0.0-44) 01/25/22 12:20 ABG Base Excess 4.7 mmol/L (-2.0-3.0) H 01/25/22 12:20 ABG Hemoglobin 8.7 gm/dl (12.0-16.0) L 01/25/22 12:20 ABG Carboxyhemoglobin 1.8 % (0.0-5.0) 01/25/22 12:20 ABG Methemoglobin 0.5 % (0.0-1.5) 01/25/22 12:20 Oxyhemoglobin 92.7 % (95.0-99.0) L 01/25/22 12:20 FiO2 35 % 01/25/22 12:20 Sodium 136 mmol/L (137-145) L 02/03/22 04:00 Potassium 4.4 mmol/L (3.6-5.0) 02/03/22 04:00 Chloride 95.7 mmol/L (98-107) L 02/03/22 04:00 Carbon Dioxide 28 mmol/L (22-30) 02/03/22 04:00 Anion Gap 17 mmol/L 02/03/22 04:00 BUN 42 mg/dL (7-17) H 02/03/22 04:00 Creatinine 0.8 mg/dL (0.6-1.2) 02/03/22 04:00 Estimated GFR > 60 ml/min 02/03/22 04:00 BUN/Creatinine Ratio 53 % 02/03/22 04:00 Glucose 114 mg/dL (65-100) H 02/03/22 04:00 POC Glucose 104 mg/dL (70-105) 02/04/22 13:54 Lactic Acid 3.70 mmol/L (0.7-2.0) H* 11/03/21 22:32 Calcium 9.1 mg/dL (8.4-10.2) 02/03/22 04:00 Phosphorus 4.00 mg/dL (2.5-4.5) 01/26/22 10:16 Magnesium 1.70 mg/dL (1.7-2.3) 01/26/22 10:16 Ferritin 52.6 ng/mL (10.0-200.0) 11/05/21 06:11 Total Bilirubin 0.50 mg/dL (0.1-1.2) 11/17/21 05:56 Direct Bilirubin < 0.2 mg/dL (0-0.2) 11/11/21 04:28 Indirect Bilirubin 0.1 mg/dL 11/11/21 04:28 AST 36 units/L (5-40) 11/17/21 05:56 ALT 47 units/L (7-56) 11/17/21 05:56 Alkaline Phosphatase 107 units/L (35-129) 11/17/21 05:56 Ammonia 42.0 umol/L (25-60) 11/10/21 14:08 Lactate Dehydrogenase 187 units/L (91-180) H 11/05/21 06:11 Troponin T 0.078 ng/mL (0.00-0.029) H 01/15/22 Unknown C-Reactive Protein 22.20 mg/dL (0.00-1.30) H 11/05/21 06:11 NT-Pro-B Natriuret Pep 7895 pg/mL (0-900) H 11/03/21 22:32 Total Protein 5.1 g/dL (6.3-8.2) L 11/17/21 05:56 Albumin 2.2 g/dL (3.9-5) L 11/17/21 05:56 Albumin/Globulin Ratio 0.8 % 11/17/21 05:56 Triglycerides 72 mg/dL (2-149) 01/15/22 21:07 Cholesterol 103 mg/dL (50-199) 01/15/22 21:07 LDL Cholesterol Direct 44 mg/dL (50-130) L 01/15/22 21:07 HDL Cholesterol 46 mg/dL (40-59) 01/15/22 21:07 Cholesterol/HDL Ratio 2.23 % 01/15/22 21:07 Vitamin B12 1823 pg/mL (211-911) H 11/10/21 14:08 TSH 1.510 mlU/mL (0.270-4.200) 11/10/21 14:08 Urine Color [place]ika (Yellow) 01/23/22 09:36 Urine Turbidity Turbid (Clear) 01/23/22 09:36 Urine pH 7.0 (5.0-7.0) 01/23/22 09:36 Ur Specific [place] 1.011 (1.003-1.030) 01/23/22 09:36 Urine Protein <15 mg/dl mg/dL (Negative) 01/23/22 09:36 Urine Glucose (UA) Neg mg/dL (Negative) 01/23/22 09:36 Urine Ketones Neg mg/dL (Negative) 01/23/22 09:36 Urine Blood Sm (Negative) 01/23/22 09:36 Urine Nitrite Neg (Negative) 01/23/22 09:36 Urine Bilirubin Neg (Negative) 01/23/22 09:36 Urine Urobilinogen 2.0 mg/dL (<2.0) 01/23/22 09:36 Ur Leukocyte Esterase Lg (Negative) 01/23/22 09:36 Urine WBC (Auto) 16.0 /HPF (0.0-6.0) H 01/23/22 09:36 Urine RBC (Auto) 32.0 /HPF (0.0-6.0) 01/23/22 09:36 U Epithel Cells (Auto) 1.0 /HPF (0-13.0) 01/23/22 09:36 Urine Bacteria (Auto) 4+ /HPF (Negative) 01/23/22 09:36 Urine Mucus Few /HPF 01/23/22 09:36 Urine Yeast (Budding) 3+ /HPF 01/23/22 09:36 Urine Sperm Few /HPF (SERVICE [facility] SPECIALIST) 01/23/22 09:36 Fluid Type Pleural 01/06/22 13:40 Fluid Color Yellow 01/06/22 13:40 Fluid Appearance Hazy 01/06/22 13:40 Fluid WBC 273 /mm3 01/06/22 13:40 Fluid RBC 45 /mm3 01/06/22 13:40 Fluid Seg Neutrophils 47.0 % 01/06/22 13:40 Fluid Lymphocytes 22.0 % 01/06/22 13:40 Fluid Monocytes 10.0 % 01/06/22 13:40 Fluid Eosinophils 19.0 % 01/06/22 13:40 Fluid Basophils 2.0 % 01/06/22 13:40 Fluid Glucose 96 mg/dL (40-70) H 01/06/22 13:40 Fluid Total Protein < 3.0 (15.0-45.0) L 01/06/22 13:40 Fluid LDH 149 01/06/22 13:40 Vancomycin Trough 11.8 ug/mL (5.0-20.0) 01/22/22 10:14 Random Vancomycin 10.5 ug/mL (0-40.0) 01/04/22 05:00 Coronavirus (PCR) Negative (Negative) 11/10/21 08:30 Blood Type O POSITIVE 12/14/21 10:30 Antibody Screen Negative 12/14/21 10:30 Crossmatch See Detail 12/14/21 10:30 Gamble/IV: Voiding Method External Female Catheter Active Medications - Current Medications Current Medications: Generic Name Dose Route Start Last Admin Trade Name Freq PRN Reason Stop Dose Admin Acetaminophen 650 mg 12/14/21 04:12 01/26/22 03:19 Acetaminophen 325 Mg/10.15 Ml Oral Liqd Unit Dose FEEDTUBE 650 mg Q6H PRN Administration Non Cardiac Pain or Temp>100.5 Hydrocodone Bitart/Acetaminophen 1 each 11/21/21 10:00 02/04/22 13:14 Hydrocodone/Acetaminophen 10-325mg Tab FEEDTUBE 1 each TID YOSSI Administration Alprazolam 0.25 mg 01/22/22 03:00 02/04/22 16:04 Alprazolam 0.5 Mg Tab FEEDTUBE 0.25 mg Q8H PRN Administration Agitation Lipase/Protease/Amylase 1 each 11/08/21 11:09 Lipase 10,500/Protease 25,000/Amylase 43,750 (Units) Dr Lema FEEDTUBE PRN PRN For Clogged Feeding Tube Bumetanide 1 mg 02/02/22 10:00 02/04/22 09:15 Bumetanide 1 Mg Tab FEEDTUBE 1 mg QDAY YOSSI Administration Buspirone HCl 7.5 mg 12/30/21 10:00 02/04/22 09:15 Buspirone 5 Mg Tab FEEDTUBE 7.5 mg BID YOSSI Administration Dextrose 50 ml 01/16/22 14:00 02/04/22 13:29 Dextrose 50% In Water (25gm) 50 Ml Syringe IV 15 ml Q30MIN PRN Administration Hypoglycemia Protocol Docusate Sodium 100 mg 12/30/21 10:00 02/04/22 09:13 Docusate Sodium 100 Mg/10 Ml Oral Liqd FEEDTUBE 100 mg BID YOSSI Administration Gabapentin 100 mg 01/22/22 10:00 02/04/22 09:12 Gabapentin 500 Mg/10 Ml Oral Liqd FEEDTUBE 100 mg QDAY YOSSI Administration Hydrophilic Ointment 1 applic 11/06/21 04:02 Lip Therapy Vaseline TP Q2HR PRN Dry Lips Lansoprazole 30 mg 11/24/21 22:00 02/04/22 09:13 Lansoprazole 30 Mg Solutab FEEDTUBE 30 mg BID YOSSI Administration Levothyroxine Sodium 125 mcg 12/31/21 06:00 02/04/22 05:50 Levothyroxine 125 Mcg Tab FEEDTUBE 125 mcg DAILY@0600 YOSSI Administration Melatonin 5 mg 12/05/21 22:00 02/03/22 21:46 Melatonin 5 Mg Tab PO 5 mg QHS YOSSI Administration Metoclopramide HCl 10 mg 01/11/22 13:25 01/21/22 21:43 Metoclopramide 10 Mg/2 Ml Inj IV 10 mg Q6H PRN Administration Nausea And Vomiting Metoprolol Tartrate 6.25 mg 12/30/21 10:00 02/04/22 09:13 Metoprolol Tartrate 25 Mg Tab FEEDTUBE 6.25 mg BID YOSSI Administration Midodrine 10 mg 01/21/22 08:00 02/04/22 13:13 Midodrine 5 Mg Tab FEEDTUBE 10 mg TID@0800,1200,1600 YOSSI Administration Multi-Ingred Cream/Lotion/Oil/Oint 1 applic 11/06/21 04:02 Mineral Oil/Petrolatum, White Ophth Oint 3.5 Gm OU Q4HR PRN Dry Eye(s) Ondansetron HCl 4 mg 12/05/21 10:00 01/20/22 22:10 Ondansetron 4 Mg/2 Ml Inj IV 4 mg Q8H PRN Administration Nausea And Vomiting Polyethylene Glycol 17 gm 12/30/21 10:00 02/04/22 09:44 Polyethylene Glycol 3350 17 Gm Powder FEEDTUBE Not Given QDAY YOSSI Pravastatin Sodium 20 mg 12/30/21 22:00 02/03/22 21:46 Pravastatin 20 Mg Tab FEEDTUBE 20 mg QHS YOSSI Administration Quetiapine Fumarate 25 mg 12/30/21 10:00 02/04/22 09:14 Quetiapine 25 Mg Tab FEEDTUBE 25 mg QAM YOSSI Administration Quetiapine Fumarate 50 mg 12/30/21 22:00 02/03/22 21:46 Quetiapine 25 Mg Tab FEEDTUBE 50 mg QHS YOSSI Administration Senna 17.6 mg 12/29/21 11:00 02/04/22 09:16 Sennosides Oral Liqd 8.8 Mg/5 Ml Oral Liqd FEEDTUBE 17.6 mg Q12HR YOSSI Administration Simethicone 80 mg 01/15/22 15:06 01/15/22 21:10 Simethicone 80 Mg Chew Tab PO 80 mg PC PRN Administration Gas pain Simple Syrup 15 ml 11/08/21 11:09 Simple Syrup 15 Ml FEEDTUBE PRN PRN Hypoglycemia Simple Syrup 30 ml 11/08/21 11:09 Simple Syrup 15 Ml FEEDTUBE PRN PRN Hypoglycemia Sodium Bicarbonate 325 mg 11/08/21 11:09 01/09/22 20:25 Sodium Bicarbonate 325 Mg Tab FEEDTUBE 325 mg PRN PRN Administration For Clogged Feeding Tube Sodium Chloride 10 ml 11/04/21 10:00 02/04/22 09:16 Sodium Chloride 0.9% 10 Ml Flush Syringe IV 10 ml BID YOSSI Administration Sodium Chloride 10 ml 11/04/21 02:03 01/09/22 06:35 Sodium Chloride 0.9% 10 Ml Flush Syringe IV 10 ml PRN PRN Administration LINE FLUSH Spironolactone 25 mg 12/30/21 10:00 02/04/22 09:14 Spironolactone 25 Mg Tab FEEDTUBE 25 mg QDAY YOSSI Administration Sucralfate 1 gm 12/30/21 12:00 02/04/22 13:13 Sucralfate 1 Gm/10 Ml Oral Liqd FEEDTUBE 1 gm Q6HR YOSSI Administration Trazodone HCl 50 mg 12/04/21 22:00 02/03/22 21:46 Trazodone 50 Mg Tab PO 50 mg QHS YOSSI Administration Trimethoprim/Sulfamethoxazole 160 mg 01/27/22 13:00 02/04/22 09:15 Sulfamethoxazole/Trimethoprim 200-40 Mg/5 Ml Oral Liqd 30 Ml PO 160 mg Q24HR YOSSI Administration Protocol Nutrition/Malnutrition Assess - Dietary Evaluation Nutrition/Malnutrition Findings: Nutrition Notes Start: 11/04/21 17:16 Freq: Status: Active Protocol: Document 02/02/22 17:00 ISABELL (Rec: 02/02/22 17:46 ISABELL [id number]) Nutrition Notes Initial or Follow up Reassessment Current Diagnosis Coronary Artery Disease, Diabetes,Hypertension Other Pertinent Diagnosis CHB s/p PPM, HFrEF, s/p COVID- 19/Pneumonia, DVT R-EIV/CFV, Anxiety. Current Diet TF-Vital AF 1.2 @ 35ml/hr ( since D 01/16). Labs/Tests 02/02: Na 135, Cl 94.6, BUN 38 . Pertinent Medications 52465: Levothyroxine, others nutritionally unremarkable. Height 5 ft Weight 56.9 kg [place] Body Weight (kg) 45.45 BMI 24.5 Weight change and time frame 5.7 Kg body weight loss in 1 week reported. Weight Status Appropriate Subjective/Other Information RD consult for routine F/U on TF tolerance. TF continues as prescribed and well tolerated, according to ADL notes. RESERVE OFFICER note on 02/02/22 14:32: Received orders to perform a MBS for immediate results of the patient's swallowing function. MBS is deferred for this date as the Radiologist is not available. Will perform in 2 hours. Pt clinically stable, plans to remove chest tube and discharge to SNF on 02/03-, according to Progress notes. Percent of energy/protein needs met: Prescribed Vital AF 1.2 Tamir @ 35 ml/hr provides for energy/ protein needs (1,008 Kcal/63 g ) during LOS, 88% Kcal; 88% AA ; additionally, Dietary Supplements will support wound healing processes with 190 Kcal and 5 g of protein. Burn Absent Trauma Absent GI Symptoms None Difficulty In Swallowing Food Allergy No Skin Integrity/Comment Lower Extremities Pressure Ulcer. Current % PO Other Minimum of two criteria No Interpretation of Weight Loss (severe) >10% in 6 months #1 Nutrition Diagnosis Inadequate oral intake Diagnosis Progress(for reassessment Continues documentation) Is patient on ventilator? Yes Is Patient Ambulatory and/or Out of Bed No REE-([facility]-confined to bed) 1141.945 Calculation Used for Recommendations [facility] Additional Notes Protein: 1.2-2 g/Kg ABW; 72- 120 g/day. Fluids: 1 ml/Kcal, or as per MD. Nutrition Intervention Nutrition Support: Continue Vital AF 1.2 Tamir @ 35 ml/hr. Flush: 50 ml water Q 4 hr, or as per MD. Kcal 1,008 Protein (gm) 63 Carbohydrates (gm) 45 Fat (gm) 45 Fluid (mL) 681 Fiber (gm) 4 % RDI: 88% Kcal; 88% AA. Add Supplement/Snack (indicate name/kcal 28.8 g Jaswant; BID /protein ) Provides kCal: 190 Provides Protein (gm) 5 Goal #1 Provide at least 75% of energy /protein needs through Enteral Feeding during LOS. Goal #2 Support, through dietary supplementation, wound healing processes during LOS. Goal #3 Maintain body weight within +/ -3% of admission body weight during LOS. Follow-Up By: 02/09/22 Additional Comments Continue monitoring TF tolerance and BM, and Mechanical Ventilation status.
[2022-02-04] MEDS: MELATONIN 5 MG TAB PO SCH (22:01)
[2022-02-04] MEDS: PRAVASTATIN 20 MG TAB FEEDTUBE SCH (22:03)
[2022-02-04] MEDS: traZODone 50 MG TAB PO SCH (22:03)
[2022-02-05] MEDS: LEVOTHYROXINE 125 MCG TAB FEEDTUBE SCH (05:50)
[2022-02-05] MEDS: SUCRALFATE 1 GM/10 ML ORAL LIQD FEEDTUBE SCH ×3 (05:50→17:05)
[2022-02-05] MEDS: ALPRAZolam 0.5 MG TAB FEEDTUBE PRN (06:56)
--- NOTE | 2022-02-05 08:59 | Discharge Summary ---
Providers - Providers Date of Admission: 11/04/21 02:05 Date of discharge: 02/05/22 Attending physician: FREDERICK DE LEÓN MD 11/04/21 02:05 Consult to Dietitian/Nutrition [CONS] Routine Physician Instructions: Reason For Exam: Reason for Consult: Diet education Consult to Dietitian/Nutrition [CONS] Routine Physician Instructions: Reason For Exam: Reason for Consult: Diet education 11/04/21 13:28 Consult to Physician [CONS] Routine Comment: Consulting Provider: TRUNG BUSTOS Physician Instructions: Reason For Exam: pui covid 19, pneumonia 11/04/21 17:02 Consult to Physician [CONS] Routine Comment: Consulting Provider: POLLY EVERETT Physician Instructions: Reason For Exam: pna, respiratory distress, hypotension 11/05/21 08:28 PICC Line Insertion [Consult to PICC Line RN] [CONS] Urgent Reason For Exam: hypotension, resp failure Type Line:: PICC 11/08/21 13:56 Consult to Physician [CONS] Routine Comment: Consulting Provider: JOSE JUAN GUTIERRES Physician Instructions: Reason For Exam: CHF 11/09/21 17:45 Consult to Physician [CONS] Routine Comment: Consulting Provider: HUBERT MARTE Physician Instructions: Reason For Exam: Acute Encephalopathy 11/16/21 14:45 Consult to Physician [CONS] Routine Comment: dr. promise odonnell Consulting Provider: STEPHANIE CATALAN Physician Instructions: Reason For Exam: anemia, dvt; ivc filter 11/16/21 16:11 Consult to Physician [CONS] Urgent Comment: dr. jamey odonnell Consulting Provider: TIFF ROCHE Physician Instructions: Reason For Exam: Acute GI Bleed 11/20/21 15:27 Consult to Dietitian/Nutrition [CONS] Routine Physician Instructions: Assess nutrtn needs, initiate, modify, manage TF Reason For Exam: Reason for Consult: Write/Manage Tube Feeding Reason for Consult: Write/Manage Tube Feeding 11/22/21 15:44 Consult to Physician [CONS] Routine Comment: Consulting Provider: HUYEN HIGHTOWER Physician Instructions: Reason For Exam: Tracheostomy placement 12/02/21 17:10 Physical Therapy Evaluation and Treat [CONS] Routine Comment: Reason For Exam: Conditioning 12/16/21 13:35 Consult to Physician [CONS] Routine Comment: Consulting Provider: SHAE JAMES Physician Instructions: Reason For Exam: fevers 12/26/21 10:53 Consult to Case Management [CONS] Routine Services Needed at Discharge: Home Health Services Notified:: cm notified Additional Physician Instructions: Mahogany James MD [facility] ([facility]) M: [phone] O: [phone] F: [phone] Outpatient parenteral antibiotic therapy orders Diagnosis: MRSA bacteremia Antibiotic administration: vancomycin 1 g daily until 01/30/2022 Line: PICC line Lab monitoring: CBC with differential, BUN, creatinine, LFTs, vancomycin trough once per week preferably on Wednesday or Wednesday Vancomycin: Check creatinine and vancomycin trough every Wednesday and , fax results to [phone] For critical labs, call office: [phone] Mahogany James 12/27/21 13:21 Consult to Physician [CONS] Routine Comment: Consulting Provider: MILLIE MCKENNA Physician Instructions: Reason For Exam: abd distention 12/27/21 13:26 Consult to Physician [CONS] Routine Comment: called answ. serv./ belle Consulting Provider: WILBERT HERNÁNDEZ Physician Instructions: Reason For Exam: abdominal swelling and pain 12/28/21 12:11 Midline [Consult to PICC Line RN] [CONS] Routine Reason For Exam: midline, hard iv stick Type Line:: Midline 12/29/21 10:19 Occupational Therapy Evaluate and Treat [CONS] Routine Comment: Reason For Exam: Debility 12/30/21 11:52 Consult to PICC Line RN [CONS] Routine Reason For Exam: nursing home IV Abx Type Line:: PICC 01/04/22 18:49 Consult to Wound/ET Nurse [CONS] Routine Reason For Exam: wound eval 01/15/22 13:02 Consult to Interventional Radiology [CONS] Routine Consulting Provider: STEPHANIE CATALAN Reason For Exam: recurrent right pleural effusion; need chest tube Place consult to:: office Notified:: yes Phone number called:: [phone] Was contact made?: Yes If yes, spoke with:: franklin Time called:: 13:10 Comment:: belle 01/15/22 14:38 Consult to Cardiology [CONS] Stat Consulting Provider: MANDADI,MEGAN R Reason For Exam: ABNORMAL EKG SHOWING ISCHEMIA 02/02/22 08:00 Speech Therapy Eval for Passy-Prescott Valve [CONS] Routine Reason For Exam: Passy-Prescott Valve eval post tracheal downsize 02/03/22 12:27 Physical Therapy Evaluation and Treat [CONS] Urgent Comment: Reason For Exam: please ambulate SEKOU, thank you Primary care physician: [facility] Hospitalization Reason for admission: Shortness of breath Condition: Stable Hospital course: Assessment and plan: This is an 82-year-old female with DM, HTN , CHB s/p PPM, CAD s/p PCI and arthritis who presented to the emergency department on 11/04 for shortness of breath ongoing for the past 3 days, cough and according to family a fever of 102.2. Upon arrival of EMS patient was found to be tachypneic and hypoxic with SPO2 of 76% on room air which later improved to 88% on nonrebreather. Work-up in the emergency department included a CXR which showed bilateral interstitial pulmonary edema with bilateral pleural effusions and bibasilar opacities, leukocytosis and anemia with a hemoglobin of 6.1. Patient was admitted to the hospitalist service with acute anemia, acute hypoxic respiratory failure, bilateral pneumonia and COVID-19 PUI with consults to pulmonology, infectious disease and later cardiology. Patient was eventually intubated in the emergency department on 11/06. Hospital Course to date: 11/04/2021: Empiric therapy with iv levaquin/vancomycin. COVID PCR pending. Will consult ID. PCCM consulted, will follow recs. Hypotensive this AM, ordered bolus and fluids at 150 cc/hr. May require pressor support if bp does not improve. 11/05/2021: GBS on bcx +, currently on rocephin IV. Currently on bipap due to respiratory distress overnight. Worsening BL opacities on CXR. May be volume overload vs pneumonia. Unfortunately bp too low for lasix at this point. WIll continue levophed and bipap. Once able to tolerate, may do trial of albumin/lasix. Call attempt made to Niraj, no response. Will try again tomorrow to update. 11/06/2021: Decompensated overnight requiring intubation. CXR shows worsening interstitial infiltrates. Currenlty on dopamine, levophed, vasopressin. PICC line ordered. Advised RN to place gamble for I/O monitoring. Would benefit from diuresis but very volume overloaded. Prognosis guarded 11/08: Off sedation this am, remains unresponsive only grimace to pain. Hold all sedatives agents for now, patient is off pressors this am. Hypernatremia from today's lab- D5W X1bag, and low K repleted, repeat lab in the am. Severe constipation also noted from KUB, BR added. 11/09: Sudden SPO2 drop in the 60s this am. Patient was manually bagged and deep suctioned. Patient is currently stable on the vent, repeat CXR with no significant change. D/w CCM Mucomyst and brochodilator added. Patient mentation is unchanged, continue to hold off on sedative agents. Neurology consulted. 11/10: Acute DVT noted on bilateral lower extremity Doppler ultrasound therefore she was started on Lovenox treatment dose. Failed SBT. Hypernatremia and hyperchloremia noted, free water flush adjusted. 11/11: Patient noted to be febrile with increasing of the cytosis, UA/BC sent and CXR ordered. ID escalated antibiotics to cefepime. CXR demonstrated mucous plug, bedside bronchoscopy was performed and O ETT was changed over bougie from 6 cm to 7.5. Patient was noted to have a pneumothorax postprocedure and chest tube was placed. Family updated by [facility]. Free water flush increased and will add Jaswant supplementation. 11/12: Patient not noted to follow commands, hypernatremia worsen/persist, increasing free water flush, potassium and magnesium and phosphorus repleted. Hemoglobin noted to be 7.1/24.5 from 7.03/12 yesterday. We will continue to trend and monitor. Vent changes per [facility]. Repeat CXR showed no residual pneumothorax. Consider waterseal tomorrow. Given persistent leukocytosis antibiotics escalated to cefepime per ID. 11/13: Remains on cefepime and vancomycin, vent changes per [facility]. Anemia noted and given 1 unit PRBC. And beta-charleen held in setting of Levophed drip infusing. Remains on fentanyl drip. 11/14: Patient put on CPAP trial by [facility], will continue chest tube until after extubation. Will rest on assist control. CT brain was cancelled by painting trades worker and reordered. 11/15: Patient removed chest tube overnight. Will obtain cxr. remains on low dose levo. CTH completed with no acute findings. RT to place on CPAP. 11/16: Hypernatremia/hyperchloremia noted on the increase of day water flushes. Anemia noted and ordered PRBC. asked RT to place on cpap but not done yet 11/17: Patient remains on the vent, awake and following commands. H&H stable s/p 2units PRBCs. GI on consult, no intervention at this time. Will continue protonix gtt and serial H&H Q6hrs. Keep patient NPO for now, D5w added for hypernatremia and NPO status. Plan for IVC filter placement today by Vascular. 11/18: Patient is s/p IVC filter. H&H continue to trend down, hbg 6.1 this am, 1 unit of PRBCs ordered. Plan for possible EGD today by GI. Keep patient NPO, continue PPI drip and serial H&H Q6hrs. Electrolytes repleted, repeat lab in the am 11/19: S/p EGD- larger duodenal ulcer noted, see operative note. GI recommendations noted also noted. H&H stable this am. Keep patient on protonix gtt for now. Will keep patient NPO, continue IVF and serial H&H for now. Electrolytes repleted, repeat labs in the am 11/20: Very agitated and restless this am, fentanyl gtt resumed. Patient remains on protonix gtt, H&H remains stable. Will switch protonix gtt to IV BID, continue carafate and okay to resume meds at this time. Will F/u with GI to see if TF can be resumed. Gamble was reinserted overnight for retention. Electrolytes repleted, repeat in the am. Plan for possible PST today for possible extubation per CCM. 11/21: Patient is now on seroquel and patient's home buspar resumed. Patient more calm this morning, fentanyl gtt is off. H&H remains stable and patient is tolerating TF. Patient had a runs of Vtach/PVCs this am, BB added per Cardio. Continue daily PS and wean trial for possible extubation. 11/22: Back on fentanyl gtt overnight , RASS o to -1, following commands. Patient failed PST this am due to increased work of breathing and low SPO2, ABG pending. Patient is also with worsen pitting edema, lasix is still on hold. Will discuss with cardio and CCM to possibly resume lasix. 11/23: MARIA DEL CARMEN overnight. Patient failed PST again this am. Per [facility] plan for possible trach and PEG, hold off on IV lasix for now. General surgery consulted and family is aware of possible Trach and PEG. 11/24: Trach/PEG pending this week, continue SBT/SAT as tolerated. No acute events reported overnight. 11/25: Patient was n.p.o. overnight and will remain n.p.o. tonight for trach/PEG tomorrow morning. She failed to support trial again. KUB obtained due to distended belly. 11/26: Patient scheduled for tracheostomy and PEG tube placement today, has been n.p.o. since midnight. No acute events reported overnight. [facility] ordered simethicone scheduled. 11/27: No acute events reported overnight, patient received trach/PEG yesterday. Has been on feedings since last night. Still awaiting LTAC placement. 11/28: Patient magnesium repleted, repeat a.m. labs, SBT 11/29: Patient complains of chest pain but ECG obtained which showed no acute findings, ordered troponin. Patient failed CPAP yesterday and was trialed again today. levophed was restarted but will aggressively wean 11/30: Patient failed SBT. Continue supportive care. Started gabapentin today 12/01: MARIA DEL CARMEN overnight. Continue daily PST. Case management to arrange possible placement 12/02: Report of dark stools overnight, patient is hemodynamically stable. H&H stable, patient is on PPI. Will continue to trend H&H. Continue daily PST as tolerated. Awaiting LTAC vs SNF placement. 12/03: Hypotensive overnight, requiring low dose pressors. S/p X3 days of gentle diurese. Will continue to monitor, wean off pressors as tolerated for MAP of 65. Patient Failed PST yesterday, case management to follow up with insurance for possible LTAC placement. Continue daily PST as tolerated. PT eval and treat ordered. 12/04: Increased agitation and anxiety overnight, remains on buspar and seroquel, trazadone added to promote rest. Patient is now working with PT, keep patient engage and awake during the day so she can rest at night. No BM for over 5 days, BR was adjusted. Patient did not tolerate PST again yesterday, continue daily PST as tolerated. Continue to titrate pressor for MAP above 65. Pending possible LTAC placement, case management to arrange. 12/05: Still not getting much rest overnight, will add melatonin for sleep. Continue to engage patient during the day and promote rest at night. TF was held due to concern for possible bleeding, H&H remains stable and stools normal this am. Resume TF and continue PPI and carafate. Remains on low dose levophed, titrate as tolerated. Continue daily PST. Possible LTAC placement, awaiting approval. 12/06: MARIA DEL CARMEN overnight. Patient rested overnight. Continue supportive measures. Daily PST as tolerated. Awaiting possible LTAC placement 12/07: MARIA DEL CARMEN overnight. Plan for Tpiece trial today. Continue current supportive measures. Possible LTAC placement 12/08: Patient placed on pressure support trial again today, started on Xanax, no acute events reported overnight. Awaiting insurance approval for LTAC. 12/09: Levophed discontinued, LTAC transfer denied, started on midodrine and Lasix, ultrasound chest pending, started on Xanax 0.[address] De León updated family at bedside today. Started on Dilaudid every 3 hours as needed. 12/10: Patient placed on CPAP trial this morning, no acute events reported overnight. Will order ultrasound-guided thoracentesis. 12/11: Patient had a thoracentesis today, will decrease Xanax dosage and continue midodrine and diuresing. Patient failed CPAP today. 12/12: Patient not tolerate CPAP trials today, no acute events reported overnight 12/13: No acute events overnight. continue PSV trials as tolerated. Daughter updated at bedside 12/14: Patient noted to be anemic today, ordered gastric occult. Patient seems to be oversedated therefore Xanax changed to as needed and fentanyl patch discontinued. We will continue to monitor hyponatremia. 12/15: MARIA DEL CARMEN overnight. s/p 1unit of PRBCs, H&H stable this am, no signs of any active bleeding. Continue daily PST as tolerated. Awaiting placement. 12/16: Hypertensive this am, Midodrine decreased. Continue daily PST. MARIA DEL CARMEN overnight 12/17: Patient Hgb dropped to 6 this am, no s/s of any active bleeding, VSS. Patient received 1unit of PRBC, will continue to trend H&H. Patient was pancultured and back on IV Abx due to persistent fevers yesterday. ID is also back on the case. Continue IV Abx per ID and f/u on cultures data for sensitivity. Patient also failed PST yesterday, continue daily PST as tolerated. Electrolytes repleted, repeat labs in the am. 12/18: Patient blood cultures is growing GPC 4 out 4 bottles. PICC line D/Rivas, patient is already on IV Abx-cefepine and Vanc and ID is following. Patient remains hemodynamically stable. Daily PST as tolerated adn PRN Benzo for anxiety. 12/19: MARIA DEL CARMEN overnight. Culture data noted, continue IV Abx per ID. Orders placed for repeat Bculture. Gamble D/C overnight, patient is voiding. Check bladder scan as needed for retention. Patient failed PST again today. Continue daily PST as tolerated. 12/20: Fevers improved, Cultures +MRSA, on Vanco per ID. Repeat 2D Echo to r/o endocarditis. Patient continue to fail PST, PEEP increased to 8 today. Continue pulmonary hygiene and vent wean per [facility]. Sodium tab added for hyponatremia. 12/22: Patient on pressure support trial for approximately 4 hours today, mi dodrine dosage increased due to hypotension. Lasix discontinued. 12/23: Started on a.m. Seroquel dose, midodrine increased to 10 mg 3 times daily, 500 mL normal saline bolus. 12/24: Seroquel dose changed (25 every morning, 75 nightly). updated at bedside by Dr. De León. CPAP trials as tolerated. Continue vancomycin. Awaiting placement. 12/25: Continue CPAP as tolerated, added gasx for distention. Continue supportive care 12/26: Patient failed PSV this AM. no acute events overnight. 12/27: GI re-consulted due to abdominal distention. No acute events reported overnight. CPAP trials as tolerated. Dr. Mckenna will get a KUB to rule out possible obstruction. 12/28: KUB shows no acute process, CXR shows improvement. CPAP trials as tolerated. 12/29: CT Abd/pelvis noted with moderated bilateral pleural effusion, anasarca, and ascites. X1dose of IV lasix administered. D/w CCM and GI orders plan for thora and paracentesis by IR. Will also start patient on aldactone Qday. Patient is tolerating trickle feeds this am, continue TF and BR adjusted for constipation. Plan of care was discussed with patient and her at the bedside. Thorough discussion on patient's overall poor prognosis and that patient will most likely be vent dependent. Patient's voiced understanding of the info given. All questions and concerns were voiced at this time. 12/30: Patient did not tolerate thoracentesis in IR yesterday due to change in LOC and hypoxia. Plan for possible bedside thoracentesis and paracentesis today. Patient remains afebrile. Patient required mcfp IV abx therapy [id number] left, orders placed for a PICC. Patient remains with sign. Piting edema and anasarca, X1 does of PO Zaroxolyn and 2m of IV lasix given. Electrolytes repleted, repeat lab in the am. 12/31: Tolerated Rt. thoracentesis at the bedside yesterday, 1.4L removed. Patient remains stable on the vent this am, tolerating CPAP today PS dropped to 14. Recent CXR noted, left pleural effusion improved. Patient tolerated gentle diurese yesterday, good urine output reported. D/w CCM hold off on Left thoracentesis today, continue PO Aldactone and additonal zaroxolyn and IV lasix again today. F/u CXR in the am. 01/01: This am CXR noted with worsening bilateral pleural effusion. Patient is stable and tolerating PST this am, however PS is back up to 20 this am. BP is soft this am will hold off on IV diuretic for today, continue PO Aldactone. D/w CCM continue gentle diurese as tolerated. Will reassess in the am. Continue support care. 01/02: MARIA DEL CARMEN overnight. VSS this am, tolerating PST. X1dose of 25% IV Albumin following with 20mg IV Lasix today. Continue daily gentle diurese if hemodynamics tolerate it. Continue to monitor and replace electrolytes as needed 01/03: Abdominal distention and vomiting overnight, 600cc of gastric residual removed, TF held. KUB with no acute abnormality. Reglan added X2days, resume TF, and continue BR. Patient is tolerating PST this am. Hemodynamics remains stable, will continue gentle IV diurese. close monitoring to renal function and electrolytes. 01/04: Tolerating TF, nausea/vomiting resolved, last BM on 01/03. Continue Reglan X1 more day. Patient continue to tolerate PST. D/W CCM continue gentle diurese. F/U CXR in the am. Possible US thoracentesis tomorrow. 01/05: no acute events overnight. scheduled for thoracentesis today but procedure pushed to tomorrow. TF restarted and will be NPO post MN. 01/06: planned thoracentesis today. Working with CM for ltac/snf approval. 01/07: s/p thoracentesis 120 cc appears to have been removed. Pulm recommendations noted, agree with continued diuresis and weaning. Continued planning with CM for ltac/snf placement. 01/08: No new issues. Continue vent weaning per pulmonary. Continuing to work with CM for placement. 01/09: No new issues. Continue vent weaning per pulmonary. Continuing to work with CM for placement. Ordered BMP for tomorrow to check kidney function as patient is currently being diuresed. 01/10: No new issues. Continue vent weaning/diuresis as directed by pulmonary medicine.BMP demonstrates normal renal function and potassium. Sodium and Chloride consistent with prior labs. Will recheck BMP in 2 days. Placement continues to be an issue as patient has been denied at all facilities. Will reasses with CM on wednesday. 01/11: Emesis overnight. Do not suspect that she is obstructed as she had 2 BM reported. Will order Reglan prn, drop TF rate to goal of 30 cc/hr. Will continue to work on placement. 01/12: Per RN patient had reported that she was tired and did not want to persist in her current state of health. D/w patient Niraj at patient bedside and stated that I recommended the patient/family at least talk with hospice to get a better understanding of their care. He was agreeable. I spoke with Ms. Busby who will help set up referral for hospice service so that family can be educated and, if the patient chooses, can pursue this option. 01/13: Continue supportive care. Family discussing about hospice. Continue reinforcement and continue weaning as tolerated. Prognosis is guarded and poor. Patient is clinically stable to transfer to the next level of care has not required any escalation in management. Has been stable on the vent awake alert following commands. 01/14: [id number]. Considering abdominal distention tube feedings hold along with the fact that the patient vomited yesterday. Will obtain a CT abdomen and pelvis to further evaluate placement. Discussed with nursing staff. Awaiting to have a family conversation with the for goals of care discussion again. 01/15: Continue supportive care, tube feed was restarted yesterday and tolerated, will start on simethicone for gas control and management. Patient is clinically stable for all lower level of care and continued weaning from the ventilator to appropriate facility. Family still undecided about goals of care. We will also check labs intermittently. 01/16: Patient today went for Chest tube placement on the right side for recurrent pleural effusion, with the goal of evaluating to see if we can wean off the vent. She has remained on the vent and with some persistent anxiety. she continues to tolerate tube feed. Again poor prognosis discussed with family. 01/17: Status post chest tube, with output of approximately 1880 cc since placement. Will continue to work with pulmonology for vent weaning. 01/18: Only tolerated 1 hr of t piece trial yesterday per RT. Patient PaO2 50s on abg last night. Will continue to work with pulmonary medicine for vent weaning. abg, cbc, bmp, xr chest ordered for am. 01/19: On t piece trial this AM. labs reviewed. CXR reviewed and appears stable with no new changes. AB.42/47.8/112.3/30.9. Will follow pulmonary recommendations and plan to continue to wean off of vent. 01/20: Per CM, [facility] declined patient admission as there are T stated the patient was not amenable from the vent. Yesterday patient had tolerated T-piece trial for approximately 12 hours. Today patient only tolerated for 45 minutes. Had desatted and stated that she was in pain during today's trial. Output yesterday from chest tube 1000 cc. Today it is 100 cc thus far. Will obtain chest x-ray tomorrow. 01/21: XR chest demonstrate mild improvement in pulmonary edema. Chest tube OP: 400 cc on 01/20 and 450 cc thus far today. On CPAP trial this am. Hopefully patient can eventually be weaned off of vent. Placement continues to be a challenge as patient has been denied at all facilities thus far, working with CM who has been in frequent contact with [facility]. 01/22: Yesterday the patient had lasted approximately 10 hours on T-piece trial. Output from chest tube approximately 525 cc yesterday. Thus far today patient has had 400 cc. Will follow with pulmonology regarding overall plan for chest tube and weaning patient off ventilator. 01/23: chest tube output 838 cc. Follow pulmonology plan re: chest tube and vent weaning. Placement remains challenging. 01/24: Very fatigue on t - piece trial yesterday afternoon, placed on full MV support. Will re-attempt today poss. Patient will complete Vancomycin course for MRSA tx on Friday 01/26. She has been afebrile sine 01/02. Current barriers to placement are weaning patient off of ventilator and removing chest tube as thus far all facilities have declined the patient. 01/25: AM CXR shows worsening pulmonary edema. On t-piece trial this AM. Patient still continues to have output from chest tube. Will follow pulmonary recs today. 01/26: Difficulty breathing this AM. Chest tube OP approx 1L yesterday. Ordered Albumin due to hypotension noted this AM. Lasix 20 mg IV in addition to po lasix ordered for pulmonary edema. Labs ordered. 01/27: Antibiotics completed for MRSA bacteremia yesterday. Will start po bactrim for suppression per ID recommendation. Remains on MV support this AM. Blood pressure improved..actually hypertensive. Chest tube OP 50 cc yesterday. Metabolic profile noted, BUN slightly elevated but Cr in range. Can continue with lasix diuresis. Will likely need pleurx mcfp at some point in place of the chest tube. nursing home prognosis remains guarded to poor. 01/28: Continue current ATP to vapotherm, agree with possible pluerex catheter for intermittent drainage/ following review of xray will trial Bumex for diuresis. Poor prognosis. 01/29: Patient seen and examined doing well diuresing appropriately with a change to Bumex therapy. Discussed with cad draftsman still with good volume output fluid overload will try to diurese over the weekend. We will check a chest x- ray in the morning to see improvement in the lungs and probably repeat on Wednesday. Anticipate discharge to SNF on Wednesday clinically she is improving likely will not need a Pleurx catheter on discharge. Prognosis remains guarded. 01/30: cxr shows unchanged, but clinically patient is stable, no increase oxygen demand, also negative fluid balance. Will continue bumex, monitor electrolytes and renal function, check cxr again on wednesday with anticipation to remove Chest tube soon and hopefully discharge to SNF on wednesday 01/31: Patient doing clinically well, will recheck chest xray in am, continue bumex, monitor electrolytes, wean off oxygen as tolerated. 02/01: Continue supportive care, will change Bumex to PO in anticipation for discharge, Await pulmonary input if chest tube can be clamped today for possible removal tomorrow. 02/02: Patient seen and examined, awaiting Chest tube removal. If patient continues to show improvement will plan for discharge in 24 to 48hrs after Chest tube removed Can be discharged to SNF with Bumex PO. 02/03: D/w pulmonology Dr Mendoza. Plan to remove chest tube today. Trach to be downsized. CM working on snf placement. 02/04: Home hospice arrangements made by CM. Scheduled to leave tomorrow afternoon. 02/05: Plan for transport home with hospice. Anticipate patient will be leaving late this afternoon. Medication management as per hospice physician. Neuro : Anxiety, chronic pain -Neurology consulted, appreciate recommendations -CT brain showed no acute events -EEG interpreted as abnormal record due to diffuse slowing noted throughout the recording, suggestive of encephalopathic process and/or drug effect, possibilities of postictal state cannot be totally excluded. Clinical correlation is in order -MRI brain not obtained-> patient has metal in her body -Repeat CT head with no acute findings -Reorientation as needed -Ammonia 42, B12 1823, TSH 1.5 -BuSpar, Seroquel, [place], gabapentin -prn xanax and Dilaudid Cardio: Acute Heart failure with reduced EF, h/o chronic heart block s/p PPM, HTN, CAD s/p PCI (2004), Moderate pulmonary HTN, cardiomyopathy -s/p vasopressor support with levophed -11/04 echocardiogram shows EF 30 to 35%, Moderate pulmonary HTN RVSP 49 -3/ echo with 35-40% EF -Cardiology consulted, appreciate recommendations -Continue beta-charleen and statin therapy -Midodrine (titrate as needed) -Not on aspirin due to allergy -Blood pressure monitoring per protocol -As needed nitroglycerin Resp: Acute hypoxic respiratory failure secondary to bilateral pneumonia, recurrent bilateral pleural effusion s/p rt sided chest tube. Right pneumothorax (resolved). -COVID-19 PCR negative -Intubated on 11/06 with 6.00 ETT at 18 at the lip and changed over bougie on 11/11-7.50 ETT at 20 at the lip -See RT notes for titration -PSV as tolerated -Surgery consult for trach -Received trach/PEG on 11/26 -S/p bedside bronchoscopy on 11/11 complicated by pneumothorax -S/p chest tube placement for right pneumothorax and dislodgment by patient on 11/15 -ABG/CXR per CCM -VAP bundle -Right chest wall ultrasound showed pleural effusion s/p chest tube -12/11 US thoracentesis removed 1L fluid -12/29 US thoracentesis removed 1.4L fluid -01/06 thoracentesis planned -01/16 right-sided chest tube placed by IR -SPO2 monitoring GI: S/p GI bleed, duodenal ulcer, transaminitis -GI consulted, appreciate recommendations-signed off -Nutrition consult for tube feeding, currently on nepro TF 45 cc/hr, dropped to 30 cc/hr due to concerns for emesis. -BR: Senokot -s/p peg 11/26 -H2 charleen -Carafate -24-hour +428 ml -10/2021 Gastric occult positive -> EGD-> duodenal ulcer -12/14 occult stool positive - reglan prn. : Urinary retention (resolved), hyponatremia, hypochloremia -Strict intake and output -Trend BMP ID: Septic shock (POA-resolved), bilateral pneumonia, MRSA bacteremia/pna -Infectious disease consulted, appreciate recommendations -COVID-19 PCR negative -Presented with fevers, leukocytosis and hypotension -11/04 blood cultures positive with a group B strep bacteremia 12/19 however repeat blood cultures on the with no growth to date -Echo showed no evidence of vegetation -repeat echo showed EF 35-40 % with no vegetations -ABX therapy: IV vancomycin for 4 weeks (12/16-01/26) -Monitor WBC and fever curve -Bedside bronchoscopy for mucous plug on CXR 11/11 -f/u blood cultures Heme: Acute DVT in the right external iliac vein, common femoral vein, superior aspect of femoral vein, Acute microcytic anemia -Evidenced on bilateral upper lower extremity ultrasound -S/p 7 unit PRBC -Trend CBC -Transfuse for hemoglobin less than 7 -heparin gtt dc d/t anemia -S/p IVC filter Endo: h/o DM and hypothyroidism -Continue home Synthroid -SSI -Accu-Cheks every 6 -Avoid hypoglycemia Disposition: 50 HOSPICE/HOME Final Discharge Diagnosis (Prints w/discharge instructions): Sepsis POA, MRSA bacteremia, pneumothorax, recurrent pleural effusion, acute respiratory failure with hypoxia, pneumonia Time spent for discharge: 35 Core Measure Documentation - Palliative Care Palliative Care/ Comfort Measures: Hospice Care - Core Measures Any of the following diagnoses?: none Exam - Physical Exam Narrative exam: Physical Exam: VITAL SIGNS: Reviewed. GENERAL: The patient appears normally developed, Vital signs as documented. Frail appearing elderly woman. HEAD: No signs of head trauma. EYES: Pupils are equal. Extraocular motions intact. EARS: Hearing grossly intact. MOUTH: Oropharynx is normal. NECK: No adenopathy, no JVD. trach collar overlying tracheostomy tube in place. CHEST: Bl rhonchi. rt sided chest tube removed. CARDIAC: Regular rate and rhythm. S1 and S2, without murmurs, gallops, or rubs. VASCULAR: No Edema. Peripheral pulses normal and equal in all extremities. ABDOMEN: Soft, non tender and non distended. No rebound or guarding, and no masses palpated. Bowel Sounds normal. peg tube in place MUSCULOSKELETAL: Good range of motion of all major joints. Extremities without clubbing, cyanosis or edema. NEUROLOGIC EXAM: Alert and oriented x 4. no focal sensory or strength deficits. PSYCHIATRIC: anxious appearing SKIN: detail exam as documented in skin assessment - Constitutional Vitals: Temp Pulse Resp BP Pulse Ox 97.5 F L 62 11 L 139/64 100 02/05/22 08:00 02/05/22 06:00 02/05/22 06:00 02/05/22 06:00 02/05/22 06:00 Plan Follow up with: PRIMARY MD EVELIO [Primary Care Provider] - 3-5 Days
[2022-02-05] MEDS: GABAPENTIN 500 MG/10 ML ORAL LIQD FEEDTUBE SCH (10:14)
[2022-02-05] MEDS: DOCUSATE SODIUM 100 MG/10 ML ORAL LIQD FEEDTUBE SCH (10:15)
[2022-02-05] MEDS: busPIRone 5 MG TAB FEEDTUBE SCH (10:15)
[2022-02-05] MEDS: METOPROLOL TARTRATE 25 MG TAB FEEDTUBE SCH (10:15)
[2022-02-05] MEDS: SPIRONOLACTONE 25 MG TAB FEEDTUBE SCH (10:15)
[2022-02-05] MEDS: QUEtiapine 25 MG TAB FEEDTUBE SCH (10:15)
[2022-02-05] MEDS: POLYETHYLENE GLYCOL 3350 17 GM POWDER FEEDTUBE SCH (10:16)
[2022-02-05] MEDS: MIDODRINE 5 MG TAB FEEDTUBE SCH ×3 (10:16→17:05)
[2022-02-05] MEDS: LANSOPRAZOLE 30 MG SOLUTAB FEEDTUBE SCH (10:16)
[2022-02-05] MEDS: BUMETANIDE 1 MG TAB FEEDTUBE SCH (10:16)
[2022-02-05] MEDS: HYDROcodone/ACETAMINOPHEN 10-325MG TAB FEEDTUBE SCH ×2 (10:16→15:06)
[2022-02-05] MEDS: SENNOSIDES ORAL LIQD 8.8 MG/5 ML ORAL LIQD FEEDTUBE SCH (10:21)
[2022-02-05] MEDS: SULFAMETHOXAZOLE/TRIMETHOPRIM 200-40 MG/5 ML ORAL LIQD 30 ML PO SCH (10:21)
--- NOTE | 2022-02-05 10:48 | Progress Note ---
Assessment and Plan Gram positive Bacteremia (MRSA) Acute respiratory failure with hypoxia, now on MVS Acute microcytic anemia Bilateral pneumonia DVT Bilateral pleural effusions Cardiomyopathy EF 30-35% Moderate pulmonary HTN - needs outpatient ENT evaluation re: tracheostomy tube change out - CM to attempt to set up outpatient ENT appointment but the family has also been advised of need for ENT evaluation - no new issues otherwise, continue care as below; - continue thyroid replacement therapy with Levoxyl - follow I's & O's and monitor electrolytes - continue Seroquel - Vancomycin de-escalated to Bactrim - continue to wean supplemental oxygen for target O2 sat's > 90% acutely - aspiration precautions - continue bronchodilators with routine trach care and pulmonary hygiene per RT - wean per pulmonary driven protocols otherwise - avoid nephrotoxins, renally dose all medications - continue accuchecks with glycemic control per SSI for target blood glucose < 180 mg/dL - continue to avoid benzodiazepine's, reduce the possibility of delirium - prn analgesia per pain score - Maintenance of sleep-wake cycle, avoid delirium - continue enteral nutritional support at goal rate as tolerated - G.I. & VTE prophylaxis - PT/OT/ROM exercises - continue mobility protocols for pressure ulcer prophylaxis - Monitor hemodynamics closely - continue other care per attending / other consultants - discharge planning ongoing concurrently COVID SPECIFIC INTERVENTIONS - COVID-19 PCR negative .... Re-evaluate in am & prn Subjective Date of service: 02/05/22 Principal diagnosis: Septic shock; AHRF; Anemia; Pneumonia; pleural effusion; HFrEF; Pulm HTN Interval history: Patient is seen today for: Septic shock; Acute hypoxemic respiratory failure; Anemia; Bilateral pneumonia; bilateral pleural effusions; HFrEF 30-35%; Pulm HTN RVSP 49 Seen and examined at bedside; 24hour events reviewed; nursing and respiratory care staff consulted; no adverse overnight events reported to me; resting in bed; remains on t-collar and tolerating well; tentatively for discharge today Objective Vital Signs - 12hr 02/04/22 02/05/22 02/05/22 23:00 00:00 00:01 Temperature Pulse Rate 60 60 60 Pulse Rate [ From Monitor] Respiratory 15 15 12 Rate Blood Pressure 86/40 114/54 114/54 O2 Sat by Pulse 99 99 99 Oximetry O2 Sat by Pulse Oximetry [ Assessment] 02/05/22 02/05/22 02/05/22 00:15 01:00 02:00 Temperature Pulse Rate 60 60 60 Pulse Rate [ From Monitor] Respiratory 18 15 Rate Blood Pressure 124/48 106/42 O2 Sat by Pulse 99 100 Oximetry O2 Sat by Pulse Oximetry [ Assessment] 02/05/22 02/05/22 02/05/22 03:00 04:00 05:00 Temperature 97.5 F L Pulse Rate 60 60 60 Pulse Rate [ 60 From Monitor] Respiratory 13 14 15 Rate Blood Pressure 128/55 125/56 126/57 O2 Sat by Pulse 100 98 98 Oximetry O2 Sat by Pulse Oximetry [ Assessment] 02/05/22 02/05/22 02/05/22 05:05 06:00 07:01 Temperature Pulse Rate 62 67 Pulse Rate [ From Monitor] Respiratory 11 L 12 Rate Blood Pressure 139/64 133/62 O2 Sat by Pulse 100 100 Oximetry O2 Sat by Pulse 100 Oximetry [ Assessment] 02/05/22 02/05/22 02/05/22 08:00 09:00 10:00 Temperature 97.5 F L Pulse Rate 66 61 63 Pulse Rate [ 64 From Monitor] Respiratory 12 17 12 Rate Blood Pressure 147/60 126/56 142/70 O2 Sat by Pulse 100 100 100 Oximetry O2 Sat by Pulse Oximetry [ Assessment] 02/05/22 10:15 Temperature Pulse Rate 68 Pulse Rate [ From Monitor] Respiratory Rate Blood Pressure 142/70 O2 Sat by Pulse 99 Oximetry O2 Sat by Pulse Oximetry [ Assessment] Constitutional: no acute distress, alert, other (normal respiratory effort at rest) Eyes: non-icteric ENT: oropharynx moist, other (+ Midline tracheostomy with minimal secretions) Neck: supple, no lymphadenopathy, no JVD Effort: mildly labored Ascultation: Bilateral: diminished breath sounds, rhonchi Cardiovascular: regular rate and rhythm, other (S1,S2) Gastrointestinal: normoactive bowel sounds, soft, non-tender, non-distended (protuberant) Integumentary: normal Extremities: no cyanosis, no edema, pink and warm, pulses normal Neurologic: non-focal exam (grossly), pupils equal and round, CN II-XII normal, other (motor strength weak but symmetric; also limited by pain) Psychiatric: mood appropriate, affect normal CBC and BMP: 02/03/22 04:00 02/03/22 04:00 ABG, PT/INR, D-dimer: ABG ABG pH 7.488 pH Units (7.350-7.450) H 01/25/22 12:20 ABG pCO2 38.2 mm Hg 01/25/22 12:20 ABG pO2 58.9 mm Hg (80.0-90.0) L 01/25/22 12:20 ABG O2 Saturation 94.9 % (95.0-99.0) L 01/25/22 12:20 PT/INR, D-dimer PT 16.9 Sec. (12.2-14.9) H 01/06/22 04:06 INR 1.23 (0.87-1.13) H 01/06/22 04:06 D-Dimer 2655.00 ng/mlDDU (0-234) H 11/11/21 04:28 Abnormal lab findings: Abnormal Labs 11/03/21 11/03/21 11/03/21 22:32 22:32 22:32 WBC 29.3 H RBC 2.93 L Hgb 6.1 L Hct 21.9 L MCV 75 L MCH 21 L MCHC 28 L RDW 19.7 H Plt Count Eos % (Auto) Eos # (Auto) Seg Neuts % (Manual) 97.0 H Lymphocytes % (Manual) 3.0 L Seg Neutrophils # Seg Neutrophils # Man 28.4 H Lymphocytes # (Manual) 0.9 L Monocytes # (Manual) PT 18.6 H INR 1.40 H APTT D-Dimer ABG pH ABG pO2 ABG HCO3 ABG O2 Saturation ABG Base Excess ABG Hemoglobin Oxyhemoglobin Sodium Potassium Chloride Carbon Dioxide 20 L BUN 33 H Creatinine Glucose 119 H POC Glucose Lactic Acid Calcium 8.3 L Phosphorus Magnesium AST ALT Alkaline Phosphatase Lactate Dehydrogenase Troponin T 0.035 H C-Reactive Protein NT-Pro-B Natriuret Pep Total Protein Albumin LDL Cholesterol Direct 34 L Vitamin B12 Urine WBC (Auto) Fluid Glucose Fluid Total Protein Vancomycin Trough Crossmatch 11/03/21 11/03/21 11/03/21 22:32 22:32 23:57 WBC RBC Hgb Hct MCV MCH MCHC RDW Plt Count Eos % (Auto) Eos # (Auto) Seg Neuts % (Manual) Lymphocytes % (Manual) Seg Neutrophils # Seg Neutrophils # Man Lymphocytes # (Manual) Monocytes # (Manual) PT INR APTT D-Dimer ABG pH ABG pO2 ABG HCO3 ABG O2 Saturation ABG Base Excess ABG Hemoglobin Oxyhemoglobin Sodium Potassium Chloride Carbon Dioxide BUN Creatinine Glucose POC Glucose Lactic Acid 3.70 H* Calcium Phosphorus Magnesium AST ALT Alkaline Phosphatase 139 H Lactate Dehydrogenase Troponin T C-Reactive Protein NT-Pro-B Natriuret Pep 7895 H Total Protein Albumin 3.5 L LDL Cholesterol Direct Vitamin B12 Urine WBC (Auto) Fluid Glucose Fluid Total Protein Vancomycin Trough Crossmatch See Detail 11/04/21 11/04/21 11/05/21 00:59 13:58 00:51 WBC 27.9 H RBC 3.28 L Hgb 7.3 L Hct 25.5 L MCV 78 L MCH 22 L MCHC 29 L RDW 19.1 H Plt Count Eos % (Auto) Eos # (Auto) Seg Neuts % (Manual) 96.0 H Lymphocytes % (Manual) 2.0 L Seg Neutrophils # Seg Neutrophils # Man 26.8 H Lymphocytes # (Manual) 0.6 L Monocytes # (Manual) PT INR APTT D-Dimer ABG pH ABG pO2 ABG HCO3 ABG O2 Saturation ABG Base Excess ABG Hemoglobin Oxyhemoglobin Sodium Potassium Chloride Carbon Dioxide BUN Creatinine Glucose POC Glucose Lactic Acid Calcium Phosphorus Magnesium AST ALT Alkaline Phosphatase Lactate Dehydrogenase Troponin T 0.051 H D 0.032 H D C-Reactive Protein NT-Pro-B Natriuret Pep Total Protein Albumin LDL Cholesterol Direct Vitamin B12 Urine WBC (Auto) Fluid Glucose Fluid Total Protein Vancomycin Trough Crossmatch 11/05/21 11/05/21 11/05/21 06:11 06:11 06:11 WBC 31.8 H RBC 3.57 L Hgb 8.0 L Hct 27.7 L MCV 78 L MCH 22 L MCHC 29 L RDW 19.2 H Plt Count Eos % (Auto) Eos # (Auto) Seg Neuts % (Manual) 91.0 H Lymphocytes % (Manual) 4.5 L Seg Neutrophils # Seg Neutrophils # Man 28.9 H Lymphocytes # (Manual) Monocytes # (Manual) 1.1 H PT INR APTT D-Dimer 1494.53 H ABG pH ABG pO2 ABG HCO3 ABG O2 Saturation ABG Base Excess ABG Hemoglobin Oxyhemoglobin Sodium Potassium Chloride Carbon Dioxide 19 L BUN 42 H Creatinine Glucose 115 H POC Glucose Lactic Acid Calcium Phosphorus Magnesium AST 43 H ALT Alkaline Phosphatase Lactate Dehydrogenase 187 H Troponin T C-Reactive Protein 22.20 H NT-Pro-B Natriuret Pep Total Protein 6.0 L Albumin 3.2 L LDL Cholesterol Direct Vitamin B12 Urine WBC (Auto) Fluid Glucose Fluid Total Protein Vancomycin Trough Crossmatch 11/05/21 11/05/21 11/06/21 06:11 12:15 00:30 WBC RBC Hgb Hct MCV MCH MCHC RDW Plt Count Eos % (Auto) Eos # (Auto) Seg Neuts % (Manual) Lymphocytes % (Manual) Seg Neutrophils # Seg Neutrophils # Man Lymphocytes # (Manual) Monocytes # (Manual) PT INR APTT D-Dimer ABG pH ABG pO2 ABG HCO3 ABG O2 Saturation ABG Base Excess ABG Hemoglobin Oxyhemoglobin Sodium Potassium Chloride Carbon Dioxide BUN Creatinine Glucose POC Glucose 113 H 69 L Lactic Acid Calcium Phosphorus Magnesium AST ALT Alkaline Phosphatase Lactate Dehydrogenase Troponin T 0.033 H C-Reactive Protein NT-Pro-B Natriuret Pep Total Protein Albumin LDL Cholesterol Direct Vitamin B12 Urine WBC (Auto) Fluid Glucose Fluid Total Protein Vancomycin Trough Crossmatch 11/06/21 11/06/21 11/06/21 05:50 15:50 15:50 WBC 25.5 H RBC 3.62 L Hgb 8.0 L Hct 27.5 L MCV 76 L MCH 22 L MCHC 29 L RDW 19.6 H Plt Count Eos % (Auto) Eos # (Auto) Seg Neuts % (Manual) 92.0 H Lymphocytes % (Manual) 5.0 L Seg Neutrophils # Seg Neutrophils # Man 23.5 H Lymphocytes # (Manual) Monocytes # (Manual) PT INR APTT D-Dimer ABG pH 7.305 L ABG pO2 ABG HCO3 15.8 L ABG O2 Saturation ABG Base Excess -9.6 L ABG Hemoglobin 8.6 L Oxyhemoglobin 94.6 L Sodium Potassium Chloride 113.9 H Carbon Dioxide 17 L BUN 56 H Creatinine Glucose 114 H POC Glucose Lactic Acid Calcium 7.9 L Phosphorus Magnesium AST 1410 H ALT 934 H Alkaline Phosphatase 142 H Lactate Dehydrogenase Troponin T C-Reactive Protein NT-Pro-B Natriuret Pep Total Protein 5.0 L Albumin 2.6 L LDL Cholesterol Direct Vitamin B12 Urine WBC (Auto) Fluid Glucose Fluid Total Protein Vancomycin Trough Crossmatch 11/07/21 11/07/21 11/07/21 03:30 04:50 08:07 WBC RBC Hgb Hct MCV MCH MCHC RDW Plt Count Eos % (Auto) Eos # (Auto) Seg Neuts % (Manual) Lymphocytes % (Manual) Seg Neutrophils # Seg Neutrophils # Man Lymphocytes # (Manual) Monocytes # (Manual) PT INR APTT D-Dimer ABG pH ABG pO2 296.9 H ABG HCO3 18.1 L ABG O2 Saturation 99.5 H ABG Base Excess -5.9 L ABG Hemoglobin 7.6 L Oxyhemoglobin Sodium Potassium Chloride Carbon Dioxide BUN Creatinine Glucose POC Glucose 106 H 108 H Lactic Acid Calcium Phosphorus Magnesium AST ALT Alkaline Phosphatase Lactate Dehydrogenase Troponin T C-Reactive Protein NT-Pro-B Natriuret Pep Total Protein Albumin LDL Cholesterol Direct Vitamin B12 Urine WBC (Auto) Fluid Glucose Fluid Total Protein Vancomycin Trough Crossmatch 11/08/21 11/08/21 11/08/21 03:10 18:05 23:43 WBC RBC Hgb Hct MCV MCH MCHC RDW Plt Count Eos % (Auto) Eos # (Auto) Seg Neuts % (Manual) Lymphocytes % (Manual) Seg Neutrophils # Seg Neutrophils # Man Lymphocytes # (Manual) Monocytes # (Manual) PT INR APTT D-Dimer ABG pH ABG pO2 127.4 H ABG HCO3 ABG O2 Saturation ABG Base Excess -3.4 L ABG Hemoglobin 7.4 L Oxyhemoglobin Sodium Potassium Chloride Carbon Dioxide BUN Creatinine Glucose POC Glucose 113 H 141 H Lactic Acid Calcium Phosphorus Magnesium AST ALT Alkaline Phosphatase Lactate Dehydrogenase Troponin T C-Reactive Protein NT-Pro-B Natriuret Pep Total Protein Albumin LDL Cholesterol Direct Vitamin B12 Urine WBC (Auto) Fluid Glucose Fluid Total Protein Vancomycin Trough Crossmatch 11/08/21 11/08/21 11/09/21 Unknown Unknown 02:00 WBC 14.5 H RBC 3.35 L Hgb 7.5 L 8.1 L Hct 25.4 L 27.6 L MCV 76 L 76 L MCH 23 L 22 L MCHC RDW 19.9 H 19.9 H Plt Count Eos % (Auto) Eos # (Auto) Seg Neuts % (Manual) Lymphocytes % (Manual) Seg Neutrophils # Seg Neutrophils # Man Lymphocytes # (Manual) Monocytes # (Manual) PT INR APTT D-Dimer ABG pH ABG pO2 ABG HCO3 ABG O2 Saturation ABG Base Excess ABG Hemoglobin Oxyhemoglobin Sodium 154 H D Potassium 3.3 L Chloride 120.7 H Carbon Dioxide 20 L BUN 38 H Creatinine Glucose POC Glucose Lactic Acid Calcium 8.3 L Phosphorus Magnesium AST ALT Alkaline Phosphatase Lactate Dehydrogenase Troponin T C-Reactive Protein NT-Pro-B Natriuret Pep Total Protein Albumin LDL Cholesterol Direct Vitamin B12 Urine WBC (Auto) Fluid Glucose Fluid Total Protein Vancomycin Trough Crossmatch 11/09/21 11/09/21 11/09/21 02:00 02:31 05:12 WBC RBC Hgb Hct MCV MCH MCHC RDW Plt Count Eos % (Auto) Eos # (Auto) Seg Neuts % (Manual) Lymphocytes % (Manual) Seg Neutrophils # Seg Neutrophils # Man Lymphocytes # (Manual) Monocytes # (Manual) PT INR APTT D-Dimer ABG pH 7.479 H ABG pO2 121.3 H ABG HCO3 ABG O2 Saturation ABG Base Excess ABG Hemoglobin 7.3 L Oxyhemoglobin Sodium Potassium Chloride 112.5 H Carbon Dioxide BUN 33 H Creatinine Glucose 161 H POC Glucose 135 H Lactic Acid Calcium Phosphorus Magnesium AST 251 H ALT 481 H Alkaline Phosphatase Lactate Dehydrogenase Troponin T C-Reactive Protein NT-Pro-B Natriuret Pep Total Protein 5.0 L Albumin 2.8 L LDL Cholesterol Direct Vitamin B12 Urine WBC (Auto) Fluid Glucose Fluid Total Protein Vancomycin Trough Crossmatch 11/09/21 11/09/21 11/09/21 11:33 16:32 23:28 WBC RBC Hgb Hct MCV MCH MCHC RDW Plt Count Eos % (Auto) Eos # (Auto) Seg Neuts % (Manual) Lymphocytes % (Manual) Seg Neutrophils # Seg Neutrophils # Man Lymphocytes # (Manual) Monocytes # (Manual) PT INR APTT D-Dimer ABG pH ABG pO2 ABG HCO3 ABG O2 Saturation ABG Base Excess ABG Hemoglobin Oxyhemoglobin Sodium Potassium Chloride Carbon Dioxide BUN Creatinine Glucose POC Glucose 132 H 133 H 143 H Lactic Acid Calcium Phosphorus Magnesium AST ALT Alkaline Phosphatase Lactate Dehydrogenase Troponin T C-Reactive Protein NT-Pro-B Natriuret Pep Total Protein Albumin LDL Cholesterol Direct Vitamin B12 Urine WBC (Auto) Fluid Glucose Fluid Total Protein Vancomycin Trough Crossmatch 11/10/21 11/10/21 11/10/21 04:00 04:00 05:35 WBC 16.0 H RBC 3.61 L Hgb 8.0 L Hct 27.1 L MCV 75 L MCH 22 L MCHC RDW 20.4 H Plt Count Eos % (Auto) Eos # (Auto) Seg Neuts % (Manual) Lymphocytes % (Manual) Seg Neutrophils # Seg Neutrophils # Man Lymphocytes # (Manual) Monocytes # (Manual) PT INR APTT D-Dimer ABG pH ABG pO2 ABG HCO3 ABG O2 Saturation ABG Base Excess ABG Hemoglobin Oxyhemoglobin Sodium 149 H Potassium Chloride 114.1 H Carbon Dioxide BUN 31 H Creatinine Glucose 148 H POC Glucose 132 H Lactic Acid Calcium 8.2 L Phosphorus Magnesium AST ALT Alkaline Phosphatase Lactate Dehydrogenase Troponin T C-Reactive Protein NT-Pro-B Natriuret Pep Total Protein Albumin LDL Cholesterol Direct Vitamin B12 Urine WBC (Auto) Fluid Glucose Fluid Total Protein Vancomycin Trough Crossmatch 11/10/21 11/10/21 11/10/21 11:31 14:08 15:35 WBC RBC Hgb Hct MCV MCH MCHC RDW Plt Count Eos % (Auto) Eos # (Auto) Seg Neuts % (Manual) Lymphocytes % (Manual) Seg Neutrophils # Seg Neutrophils # Man Lymphocytes # (Manual) Monocytes # (Manual) PT INR APTT D-Dimer ABG pH ABG pO2 126.6 H ABG HCO3 ABG O2 Saturation ABG Base Excess ABG Hemoglobin 7.4 L Oxyhemoglobin Sodium Potassium Chloride Carbon Dioxide BUN Creatinine Glucose POC Glucose 147 H Lactic Acid Calcium Phosphorus Magnesium AST ALT Alkaline Phosphatase Lactate Dehydrogenase Troponin T C-Reactive Protein NT-Pro-B Natriuret Pep Total Protein Albumin LDL Cholesterol Direct Vitamin B12 1823 H Urine WBC (Auto) Fluid Glucose Fluid Total Protein Vancomycin Trough Crossmatch 11/10/21 11/11/21 11/11/21 17:53 00:55 04:28 WBC RBC Hgb Hct MCV MCH MCHC RDW Plt Count Eos % (Auto) Eos # (Auto) Seg Neuts % (Manual) Lymphocytes % (Manual) Seg Neutrophils # Seg Neutrophils # Man Lymphocytes # (Manual) Monocytes # (Manual) PT INR APTT D-Dimer ABG pH ABG pO2 ABG HCO3 ABG O2 Saturation ABG Base Excess ABG Hemoglobin Oxyhemoglobin Sodium 149 H Potassium Chloride 112.2 H Carbon Dioxide BUN 34 H Creatinine Glucose 148 H POC Glucose 140 H 145 H Lactic Acid Calcium 7.9 L Phosphorus Magnesium AST 53 H ALT 203 H Alkaline Phosphatase Lactate Dehydrogenase Troponin T C-Reactive Protein NT-Pro-B Natriuret Pep Total Protein 4.9 L Albumin 2.6 L LDL Cholesterol Direct Vitamin B12 Urine WBC (Auto) Fluid Glucose Fluid Total Protein Vancomycin Trough Crossmatch 11/11/21 11/11/21 11/11/21 04:28 04:28 05:28 WBC 20.9 H RBC 3.47 L Hgb 7.5 L Hct 26.0 L MCV 75 L MCH 22 L MCHC 29 L RDW 21.6 H Plt Count 132 L Eos % (Auto) Eos # (Auto) Seg Neuts % (Manual) Lymphocytes % (Manual) Seg Neutrophils # Seg Neutrophils # Man Lymphocytes # (Manual) Monocytes # (Manual) PT INR APTT D-Dimer 2655.00 H ABG pH ABG pO2 ABG HCO3 ABG O2 Saturation ABG Base Excess ABG Hemoglobin Oxyhemoglobin Sodium Potassium Chloride Carbon Dioxide BUN Creatinine Glucose POC Glucose 154 H Lactic Acid Calcium Phosphorus Magnesium AST ALT Alkaline Phosphatase Lactate Dehydrogenase Troponin T C-Reactive Protein NT-Pro-B Natriuret Pep Total Protein Albumin LDL Cholesterol Direct Vitamin B12 Urine WBC (Auto) Fluid Glucose Fluid Total Protein Vancomycin Trough Crossmatch 11/11/21 11/11/21 11/12/21 12:38 18:13 00:14 WBC RBC Hgb Hct MCV MCH MCHC RDW Plt Count Eos % (Auto) Eos # (Auto) Seg Neuts % (Manual) Lymphocytes % (Manual) Seg Neutrophils # Seg Neutrophils # Man Lymphocytes # (Manual) Monocytes # (Manual) PT INR APTT D-Dimer ABG pH ABG pO2 ABG HCO3 ABG O2 Saturation ABG Base Excess ABG Hemoglobin Oxyhemoglobin Sodium Potassium Chloride Carbon Dioxide BUN Creatinine Glucose POC Glucose 137 H 108 H 137 H Lactic Acid Calcium Phosphorus Magnesium AST ALT Alkaline Phosphatase Lactate Dehydrogenase Troponin T C-Reactive Protein NT-Pro-B Natriuret Pep Total Protein Albumin LDL Cholesterol Direct Vitamin B12 Urine WBC (Auto) Fluid Glucose Fluid Total Protein Vancomycin Trough Crossmatch 11/12/21 11/12/21 11/12/21 05:40 06:24 11:12 WBC RBC Hgb Hct MCV MCH MCHC RDW Plt Count Eos % (Auto) Eos # (Auto) Seg Neuts % (Manual) Lymphocytes % (Manual) Seg Neutrophils # Seg Neutrophils # Man Lymphocytes # (Manual) Monocytes # (Manual) PT INR APTT D-Dimer ABG pH 7.586 H ABG pO2 150.6 H ABG HCO3 27.2 H ABG O2 Saturation 99.1 H ABG Base Excess 5.2 H ABG Hemoglobin 7.5 L Oxyhemoglobin Sodium Potassium Chloride Carbon Dioxide BUN Creatinine Glucose POC Glucose 132 H 140 H Lactic Acid Calcium Phosphorus Magnesium AST ALT Alkaline Phosphatase Lactate Dehydrogenase Troponin T C-Reactive Protein NT-Pro-B Natriuret Pep Total Protein Albumin LDL Cholesterol Direct Vitamin B12 Urine WBC (Auto) Fluid Glucose Fluid Total Protein Vancomycin Trough Crossmatch 11/12/21 11/12/21 11/12/21 14:50 14:50 17:13 WBC 19.8 H RBC 3.27 L Hgb 7.1 L Hct 24.5 L MCV 75 L MCH 22 L MCHC 29 L RDW 22.3 H Plt Count Eos % (Auto) Eos # (Auto) Seg Neuts % (Manual) Lymphocytes % (Manual) Seg Neutrophils # Seg Neutrophils # Man Lymphocytes # (Manual) Monocytes # (Manual) PT INR APTT D-Dimer ABG pH ABG pO2 ABG HCO3 ABG O2 Saturation ABG Base Excess ABG Hemoglobin Oxyhemoglobin Sodium 150 H Potassium 3.3 L Chloride 112.0 H Carbon Dioxide BUN 40 H Creatinine Glucose 151 H POC Glucose 121 H Lactic Acid Calcium 7.4 L Phosphorus 1.70 L Magnesium 1.40 L AST ALT Alkaline Phosphatase Lactate Dehydrogenase Troponin T C-Reactive Protein NT-Pro-B Natriuret Pep Total Protein Albumin LDL Cholesterol Direct Vitamin B12 Urine WBC (Auto) Fluid Glucose Fluid Total Protein Vancomycin Trough Crossmatch 11/12/21 11/13/21 11/13/21 23:19 05:34 06:30 WBC RBC Hgb Hct MCV MCH MCHC RDW Plt Count Eos % (Auto) Eos # (Auto) Seg Neuts % (Manual) Lymphocytes % (Manual) Seg Neutrophils # Seg Neutrophils # Man Lymphocytes # (Manual) Monocytes # (Manual) PT INR APTT D-Dimer ABG pH ABG pO2 ABG HCO3 ABG O2 Saturation ABG Base Excess ABG Hemoglobin Oxyhemoglobin Sodium 149 H Potassium Chloride 60.0 L Carbon Dioxide BUN 40 H Creatinine Glucose 146 H POC Glucose 113 H 132 H Lactic Acid Calcium 7.3 L Phosphorus Magnesium 2.40 H AST ALT 72 H Alkaline Phosphatase Lactate Dehydrogenase Troponin T C-Reactive Protein NT-Pro-B Natriuret Pep Total Protein 5.2 L Albumin 2.2 L LDL Cholesterol Direct Vitamin B12 Urine WBC (Auto) Fluid Glucose Fluid Total Protein Vancomycin Trough Crossmatch 11/13/21 11/13/21 11/13/21 06:30 08:30 11:19 WBC 21.2 H RBC 3.12 L Hgb 6.8 L Hct 23.2 L MCV 74 L MCH 22 L MCHC 29 L RDW 22.2 H Plt Count 135 L Eos % (Auto) Eos # (Auto) Seg Neuts % (Manual) Lymphocytes % (Manual) Seg Neutrophils # Seg Neutrophils # Man Lymphocytes # (Manual) Monocytes # (Manual) PT INR APTT D-Dimer ABG pH ABG pO2 ABG HCO3 ABG O2 Saturation ABG Base Excess ABG Hemoglobin Oxyhemoglobin Sodium Potassium Chloride Carbon Dioxide BUN Creatinine Glucose POC Glucose 136 H Lactic Acid Calcium Phosphorus Magnesium AST ALT Alkaline Phosphatase Lactate Dehydrogenase Troponin T C-Reactive Protein NT-Pro-B Natriuret Pep Total Protein Albumin LDL Cholesterol Direct Vitamin B12 Urine WBC (Auto) Fluid Glucose Fluid Total Protein Vancomycin Trough Crossmatch See Detail 11/13/21 11/14/21 11/14/21 18:21 00:01 04:46 WBC 20.0 H RBC 3.41 L Hgb 7.9 L Hct 26.8 L MCV MCH 23 L MCHC 29 L RDW 24.0 H Plt Count Eos % (Auto) Eos # (Auto) Seg Neuts % (Manual) Lymphocytes % (Manual) Seg Neutrophils # Seg Neutrophils # Man Lymphocytes # (Manual) Monocytes # (Manual) PT INR APTT D-Dimer ABG pH ABG pO2 ABG HCO3 ABG O2 Saturation ABG Base Excess ABG Hemoglobin Oxyhemoglobin Sodium Potassium Chloride Carbon Dioxide BUN Creatinine Glucose POC Glucose 149 H 141 H Lactic Acid Calcium Phosphorus Magnesium AST ALT Alkaline Phosphatase Lactate Dehydrogenase Troponin T C-Reactive Protein NT-Pro-B Natriuret Pep Total Protein Albumin LDL Cholesterol Direct Vitamin B12 Urine WBC (Auto) Fluid Glucose Fluid Total Protein Vancomycin Trough Crossmatch 11/14/21 11/14/21 11/14/21 04:46 05:10 11:10 WBC RBC Hgb Hct MCV MCH MCHC RDW Plt Count Eos % (Auto) Eos # (Auto) Seg Neuts % (Manual) Lymphocytes % (Manual) Seg Neutrophils # Seg Neutrophils # Man Lymphocytes # (Manual) Monocytes # (Manual) PT INR APTT D-Dimer ABG pH ABG pO2 ABG HCO3 ABG O2 Saturation ABG Base Excess ABG Hemoglobin Oxyhemoglobin Sodium 148 H Potassium Chloride 113.1 H Carbon Dioxide BUN 43 H Creatinine Glucose 140 H POC Glucose 132 H 133 H Lactic Acid Calcium 7.5 L Phosphorus Magnesium AST ALT Alkaline Phosphatase Lactate Dehydrogenase Troponin T C-Reactive Protein NT-Pro-B Natriuret Pep Total Protein Albumin LDL Cholesterol Direct Vitamin B12 Urine WBC (Auto) Fluid Glucose Fluid Total Protein Vancomycin Trough Crossmatch 11/14/21 11/14/21 11/14/21 16:14 17:48 23:23 WBC RBC Hgb Hct MCV MCH MCHC RDW Plt Count Eos % (Auto) Eos # (Auto) Seg Neuts % (Manual) Lymphocytes % (Manual) Seg Neutrophils # Seg Neutrophils # Man Lymphocytes # (Manual) Monocytes # (Manual) PT INR APTT D-Dimer ABG pH ABG pO2 ABG HCO3 28.0 H ABG O2 Saturation ABG Base Excess 3.1 H ABG Hemoglobin 5.8 L Oxyhemoglobin 94.8 L Sodium Potassium Chloride Carbon Dioxide BUN Creatinine Glucose POC Glucose 130 H 136 H Lactic Acid Calcium Phosphorus Magnesium AST ALT Alkaline Phosphatase Lactate Dehydrogenase Troponin T C-Reactive Protein NT-Pro-B Natriuret Pep Total Protein Albumin LDL Cholesterol Direct Vitamin B12 Urine WBC (Auto) Fluid Glucose Fluid Total Protein Vancomycin Trough Crossmatch 11/15/21 11/15/21 11/15/21 05:20 05:50 05:50 WBC 19.9 H RBC 3.50 L Hgb 8.2 L Hct 27.9 L MCV MCH 23 L MCHC 29 L RDW 24.9 H Plt Count Eos % (Auto) Eos # (Auto) Seg Neuts % (Manual) Lymphocytes % (Manual) Seg Neutrophils # Seg Neutrophils # Man Lymphocytes # (Manual) Monocytes # (Manual) PT INR APTT D-Dimer ABG pH ABG pO2 ABG HCO3 ABG O2 Saturation ABG Base Excess ABG Hemoglobin Oxyhemoglobin Sodium 149 H Potassium Chloride 112.0 H Carbon Dioxide BUN 48 H Creatinine Glucose 152 H POC Glucose 137 H Lactic Acid Calcium 7.9 L Phosphorus Magnesium AST ALT Alkaline Phosphatase Lactate Dehydrogenase Troponin T C-Reactive Protein NT-Pro-B Natriuret Pep Total Protein Albumin LDL Cholesterol Direct Vitamin B12 Urine WBC (Auto) Fluid Glucose Fluid Total Protein Vancomycin Trough Crossmatch 11/15/21 11/15/21 11/15/21 12:12 17:07 23:24 WBC RBC Hgb Hct MCV MCH MCHC RDW Plt Count Eos % (Auto) Eos # (Auto) Seg Neuts % (Manual) Lymphocytes % (Manual) Seg Neutrophils # Seg Neutrophils # Man Lymphocytes # (Manual) Monocytes # (Manual) PT INR APTT D-Dimer ABG pH ABG pO2 ABG HCO3 ABG O2 Saturation ABG Base Excess ABG Hemoglobin Oxyhemoglobin Sodium Potassium Chloride Carbon Dioxide BUN Creatinine Glucose POC Glucose 114 H 135 H 123 H Lactic Acid Calcium Phosphorus Magnesium AST ALT Alkaline Phosphatase Lactate Dehydrogenase Troponin T C-Reactive Protein NT-Pro-B Natriuret Pep Total Protein Albumin LDL Cholesterol Direct Vitamin B12 Urine WBC (Auto) Fluid Glucose Fluid Total Protein Vancomycin Trough Crossmatch 11/16/21 11/16/21 11/16/21 05:21 10:00 10:00 WBC 21.7 H RBC 2.57 L Hgb 6.0 L Hct 20.2 L D MCV MCH 24 L MCHC RDW 26.3 H Plt Count Eos % (Auto) Eos # (Auto) Seg Neuts % (Manual) Lymphocytes % (Manual) Seg Neutrophils # Seg Neutrophils # Man Lymphocytes # (Manual) Monocytes # (Manual) PT INR APTT D-Dimer ABG pH ABG pO2 ABG HCO3 ABG O2 Saturation ABG Base Excess ABG Hemoglobin Oxyhemoglobin Sodium 153 H Potassium Chloride 114.9 H Carbon Dioxide BUN 74 H Creatinine Glucose 155 H POC Glucose 127 H Lactic Acid Calcium 8.1 L Phosphorus Magnesium AST ALT Alkaline Phosphatase Lactate Dehydrogenase Troponin T C-Reactive Protein NT-Pro-B Natriuret Pep Total Protein Albumin LDL Cholesterol Direct Vitamin B12 Urine WBC (Auto) Fluid Glucose Fluid Total Protein Vancomycin Trough Crossmatch 11/16/21 11/16/21 11/16/21 11:34 14:00 15:25 WBC 17.2 H RBC 2.08 L Hgb 4.7 L* Hct 16.2 L* MCV 78 L MCH 23 L MCHC 29 L RDW 26.0 H Plt Count Eos % (Auto) Eos # (Auto) Seg Neuts % (Manual) 87.0 H Lymphocytes % (Manual) 8.0 L Seg Neutrophils # Seg Neutrophils # Man 15.0 H Lymphocytes # (Manual) Monocytes # (Manual) 0.9 H PT INR APTT D-Dimer ABG pH ABG pO2 ABG HCO3 ABG O2 Saturation ABG Base Excess ABG Hemoglobin Oxyhemoglobin Sodium Potassium Chloride Carbon Dioxide BUN Creatinine Glucose POC Glucose 131 H Lactic Acid Calcium Phosphorus Magnesium AST ALT Alkaline Phosphatase Lactate Dehydrogenase Troponin T C-Reactive Protein NT-Pro-B Natriuret Pep Total Protein Albumin LDL Cholesterol Direct Vitamin B12 Urine WBC (Auto) Fluid Glucose Fluid Total Protein Vancomycin Trough Crossmatch See Detail 11/16/21 11/16/21 11/16/21 15:25 17:21 22:43 WBC RBC Hgb 8.6 L D Hct 27.7 L D MCV MCH MCHC RDW Plt Count Eos % (Auto) Eos # (Auto) Seg Neuts % (Manual) Lymphocytes % (Manual) Seg Neutrophils # Seg Neutrophils # Man Lymphocytes # (Manual) Monocytes # (Manual) PT INR APTT D-Dimer ABG pH ABG pO2 ABG HCO3 ABG O2 Saturation ABG Base Excess ABG Hemoglobin Oxyhemoglobin Sodium 148 H Potassium Chloride 113.2 H Carbon Dioxide BUN 84 H Creatinine Glucose 164 H POC Glucose 124 H Lactic Acid Calcium 7.6 L Phosphorus Magnesium AST ALT Alkaline Phosphatase Lactate Dehydrogenase Troponin T C-Reactive Protein NT-Pro-B Natriuret Pep Total Protein Albumin LDL Cholesterol Direct Vitamin B12 Urine WBC (Auto) Fluid Glucose Fluid Total Protein Vancomycin Trough Crossmatch 11/16/21 11/17/21 11/17/21 23:07 05:33 05:56 WBC 25.1 H RBC 3.47 L Hgb 8.7 L Hct 28.5 L MCV MCH 25 L MCHC RDW 22.3 H Plt Count Eos % (Auto) Eos # (Auto) Seg Neuts % (Manual) Lymphocytes % (Manual) Seg Neutrophils # Seg Neutrophils # Man Lymphocytes # (Manual) Monocytes # (Manual) PT INR APTT D-Dimer ABG pH ABG pO2 ABG HCO3 ABG O2 Saturation ABG Base Excess ABG Hemoglobin Oxyhemoglobin Sodium Potassium Chloride Carbon Dioxide BUN Creatinine Glucose POC Glucose 128 H 133 H Lactic Acid Calcium Phosphorus Magnesium AST ALT Alkaline Phosphatase Lactate Dehydrogenase Troponin T C-Reactive Protein NT-Pro-B Natriuret Pep Total Protein Albumin LDL Cholesterol Direct Vitamin B12 Urine WBC (Auto) Fluid Glucose Fluid Total Protein Vancomycin Trough Crossmatch 11/17/21 11/17/21 11/17/21 05:56 11:00 11:55 WBC RBC Hgb 8.3 L Hct 26.9 L MCV MCH MCHC RDW Plt Count Eos % (Auto) Eos # (Auto) Seg Neuts % (Manual) Lymphocytes % (Manual) Seg Neutrophils # Seg Neutrophils # Man Lymphocytes # (Manual) Monocytes # (Manual) PT INR APTT D-Dimer ABG pH ABG pO2 ABG HCO3 ABG O2 Saturation ABG Base Excess ABG Hemoglobin Oxyhemoglobin Sodium 151 H Potassium Chloride 113.6 H Carbon Dioxide BUN 85 H Creatinine Glucose 132 H POC Glucose 121 H Lactic Acid Calcium 7.8 L Phosphorus Magnesium AST ALT Alkaline Phosphatase Lactate Dehydrogenase Troponin T C-Reactive Protein NT-Pro-B Natriuret Pep Total Protein 5.1 L Albumin 2.2 L LDL Cholesterol Direct Vitamin B12 Urine WBC (Auto) Fluid Glucose Fluid Total Protein Vancomycin Trough Crossmatch 11/17/21 11/17/21 11/18/21 18:04 18:55 00:26 WBC RBC Hgb 7.5 L 7.1 L Hct 24.8 L 23.6 L MCV MCH MCHC RDW Plt Count Eos % (Auto) Eos # (Auto) Seg Neuts % (Manual) Lymphocytes % (Manual) Seg Neutrophils # Seg Neutrophils # Man Lymphocytes # (Manual) Monocytes # (Manual) PT INR APTT D-Dimer ABG pH ABG pO2 ABG HCO3 ABG O2 Saturation ABG Base Excess ABG Hemoglobin Oxyhemoglobin Sodium Potassium Chloride Carbon Dioxide BUN Creatinine Glucose POC Glucose 144 H Lactic Acid Calcium Phosphorus Magnesium AST ALT Alkaline Phosphatase Lactate Dehydrogenase Troponin T C-Reactive Protein NT-Pro-B Natriuret Pep Total Protein Albumin LDL Cholesterol Direct Vitamin B12 Urine WBC (Auto) Fluid Glucose Fluid Total Protein Vancomycin Trough Crossmatch 11/18/21 11/18/21 11/18/21 00:43 05:10 05:10 WBC 12.5 H RBC 2.39 L Hgb 6.1 L Hct 20.2 L MCV MCH 25 L MCHC RDW 23.2 H Plt Count Eos % (Auto) Eos # (Auto) Seg Neuts % (Manual) Lymphocytes % (Manual) Seg Neutrophils # Seg Neutrophils # Man Lymphocytes # (Manual) Monocytes # (Manual) PT INR APTT D-Dimer ABG pH ABG pO2 ABG HCO3 ABG O2 Saturation ABG Base Excess ABG Hemoglobin Oxyhemoglobin Sodium 131 L D Potassium 2.9 L* D Chloride 97.8 L Carbon Dioxide BUN 58 H Creatinine Glucose 665 H* POC Glucose 139 H Lactic Acid Calcium 7.0 L Phosphorus 2.20 L D Magnesium 1.50 L AST ALT Alkaline Phosphatase Lactate Dehydrogenase Troponin T C-Reactive Protein NT-Pro-B Natriuret Pep Total Protein Albumin LDL Cholesterol Direct Vitamin B12 Urine WBC (Auto) Fluid Glucose Fluid Total Protein Vancomycin Trough Crossmatch 11/18/21 11/18/21 11/18/21 05:23 07:10 10:45 WBC RBC Hgb Hct MCV MCH MCHC RDW Plt Count Eos % (Auto) Eos # (Auto) Seg Neuts % (Manual) Lymphocytes % (Manual) Seg Neutrophils # Seg Neutrophils # Man Lymphocytes # (Manual) Monocytes # (Manual) PT INR APTT D-Dimer ABG pH ABG pO2 ABG HCO3 ABG O2 Saturation ABG Base Excess ABG Hemoglobin Oxyhemoglobin Sodium 148 H D Potassium 3.1 L Chloride 111.9 H Carbon Dioxide BUN 63 H Creatinine Glucose 141 H POC Glucose 124 H Lactic Acid Calcium 8.1 L D Phosphorus Magnesium AST ALT Alkaline Phosphatase Lactate Dehydrogenase Troponin T C-Reactive Protein NT-Pro-B Natriuret Pep Total Protein Albumin LDL Cholesterol Direct Vitamin B12 Urine WBC (Auto) Fluid Glucose Fluid Total Protein Vancomycin Trough Crossmatch See Detail 11/18/21 11/19/21 11/19/21 11:57 00:19 04:55 WBC RBC 3.35 L Hgb 9.0 L 8.9 L Hct 28.3 L D 28.1 L MCV MCH 27 L MCHC RDW 20.3 H Plt Count Eos % (Auto) Eos # (Auto) Seg Neuts % (Manual) Lymphocytes % (Manual) Seg Neutrophils # Seg Neutrophils # Man Lymphocytes # (Manual) Monocytes # (Manual) PT INR APTT D-Dimer ABG pH ABG pO2 ABG HCO3 ABG O2 Saturation ABG Base Excess ABG Hemoglobin Oxyhemoglobin Sodium Potassium Chloride Carbon Dioxide BUN Creatinine Glucose POC Glucose 119 H Lactic Acid Calcium Phosphorus Magnesium AST ALT Alkaline Phosphatase Lactate Dehydrogenase Troponin T C-Reactive Protein NT-Pro-B Natriuret Pep Total Protein Albumin LDL Cholesterol Direct Vitamin B12 Urine WBC (Auto) Fluid Glucose Fluid Total Protein Vancomycin Trough Crossmatch 11/19/21 11/19/21 11/20/21 04:55 05:42 00:55 WBC RBC Hgb 9.0 L Hct 28.6 L MCV MCH MCHC RDW Plt Count Eos % (Auto) Eos # (Auto) Seg Neuts % (Manual) Lymphocytes % (Manual) Seg Neutrophils # Seg Neutrophils # Man Lymphocytes # (Manual) Monocytes # (Manual) PT INR APTT D-Dimer ABG pH ABG pO2 ABG HCO3 ABG O2 Saturation ABG Base Excess ABG Hemoglobin Oxyhemoglobin Sodium Potassium 3.5 L Chloride 108.6 H Carbon Dioxide BUN 47 H Creatinine Glucose 207 H POC Glucose 63 L Lactic Acid Calcium 7.1 L Phosphorus Magnesium AST ALT Alkaline Phosphatase Lactate Dehydrogenase Troponin T C-Reactive Protein NT-Pro-B Natriuret Pep Total Protein Albumin LDL Cholesterol Direct Vitamin B12 Urine WBC (Auto) Fluid Glucose Fluid Total Protein Vancomycin Trough Crossmatch 11/20/21 11/20/21 11/20/21 05:40 05:40 Unknown WBC RBC 3.40 L Hgb 9.1 L Hct 28.8 L MCV MCH 27 L MCHC RDW 20.7 H Plt Count Eos % (Auto) Eos # (Auto) Seg Neuts % (Manual) Lymphocytes % (Manual) Seg Neutrophils # Seg Neutrophils # Man Lymphocytes # (Manual) Monocytes # (Manual) PT INR APTT D-Dimer ABG pH ABG pO2 ABG HCO3 ABG O2 Saturation ABG Base Excess -2.7 L ABG Hemoglobin 9.5 L Oxyhemoglobin 94.3 L Sodium Potassium 3.5 L Chloride 108.9 H Carbon Dioxide BUN 37 H Creatinine Glucose 117 H POC Glucose Lactic Acid Calcium 7.5 L Phosphorus Magnesium AST ALT Alkaline Phosphatase Lactate Dehydrogenase Troponin T C-Reactive Protein NT-Pro-B Natriuret Pep Total Protein Albumin LDL Cholesterol Direct Vitamin B12 Urine WBC (Auto) Fluid Glucose Fluid Total Protein Vancomycin Trough Crossmatch 11/21/21 11/21/21 11/21/21 04:30 04:30 16:00 WBC RBC 3.25 L Hgb 8.6 L Hct 28.1 L MCV MCH 26 L MCHC RDW 20.7 H Plt Count Eos % (Auto) Eos # (Auto) Seg Neuts % (Manual) Lymphocytes % (Manual) Seg Neutrophils # Seg Neutrophils # Man Lymphocytes # (Manual) Monocytes # (Manual) PT INR APTT D-Dimer ABG pH ABG pO2 114.2 H ABG HCO3 ABG O2 Saturation ABG Base Excess ABG Hemoglobin 9.1 L Oxyhemoglobin Sodium 134 L Potassium Chloride Carbon Dioxide 20 L BUN 34 H Creatinine Glucose POC Glucose Lactic Acid Calcium 7.1 L Phosphorus Magnesium AST ALT Alkaline Phosphatase Lactate Dehydrogenase Troponin T C-Reactive Protein NT-Pro-B Natriuret Pep Total Protein Albumin LDL Cholesterol Direct Vitamin B12 Urine WBC (Auto) Fluid Glucose Fluid Total Protein Vancomycin Trough Crossmatch 11/22/21 11/22/21 11/22/21 07:07 07:07 23:54 WBC RBC 3.30 L Hgb 9.0 L Hct 28.5 L MCV MCH 27 L MCHC RDW 21.0 H Plt Count Eos % (Auto) Eos # (Auto) Seg Neuts % (Manual) Lymphocytes % (Manual) Seg Neutrophils # Seg Neutrophils # Man Lymphocytes # (Manual) Monocytes # (Manual) PT INR APTT D-Dimer ABG pH ABG pO2 ABG HCO3 ABG O2 Saturation ABG Base Excess ABG Hemoglobin Oxyhemoglobin Sodium Potassium Chloride Carbon Dioxide BUN 32 H Creatinine Glucose 106 H POC Glucose 110 H Lactic Acid Calcium 7.5 L Phosphorus Magnesium AST ALT Alkaline Phosphatase Lactate Dehydrogenase Troponin T C-Reactive Protein NT-Pro-B Natriuret Pep Total Protein Albumin LDL Cholesterol Direct Vitamin B12 Urine WBC (Auto) Fluid Glucose Fluid Total Protein Vancomycin Trough Crossmatch 11/23/21 11/23/21 11/23/21 04:38 04:38 06:01 WBC RBC 3.23 L Hgb 8.8 L Hct 28.0 L MCV MCH 27 L MCHC RDW 21.3 H Plt Count Eos % (Auto) Eos # (Auto) Seg Neuts % (Manual) Lymphocytes % (Manual) Seg Neutrophils # Seg Neutrophils # Man Lymphocytes # (Manual) Monocytes # (Manual) PT INR APTT D-Dimer ABG pH ABG pO2 ABG HCO3 ABG O2 Saturation ABG Base Excess ABG Hemoglobin Oxyhemoglobin Sodium 136 L Potassium Chloride Carbon Dioxide 20 L BUN 32 H Creatinine Glucose 109 H POC Glucose 115 H Lactic Acid Calcium 7.7 L Phosphorus Magnesium AST ALT Alkaline Phosphatase Lactate Dehydrogenase Troponin T C-Reactive Protein NT-Pro-B Natriuret Pep Total Protein Albumin LDL Cholesterol Direct Vitamin B12 Urine WBC (Auto) Fluid Glucose Fluid Total Protein Vancomycin Trough Crossmatch 11/23/21 11/24/21 11/24/21 11:40 00:03 04:13 WBC RBC 3.18 L Hgb 8.5 L Hct 27.5 L MCV MCH 27 L MCHC RDW 21.6 H Plt Count Eos % (Auto) Eos # (Auto) Seg Neuts % (Manual) Lymphocytes % (Manual) Seg Neutrophils # Seg Neutrophils # Man Lymphocytes # (Manual) Monocytes # (Manual) PT INR APTT D-Dimer ABG pH ABG pO2 ABG HCO3 ABG O2 Saturation ABG Base Excess ABG Hemoglobin Oxyhemoglobin Sodium Potassium Chloride Carbon Dioxide BUN Creatinine Glucose POC Glucose 117 H 111 H Lactic Acid Calcium Phosphorus Magnesium AST ALT Alkaline Phosphatase Lactate Dehydrogenase Troponin T C-Reactive Protein NT-Pro-B Natriuret Pep Total Protein Albumin LDL Cholesterol Direct Vitamin B12 Urine WBC (Auto) Fluid Glucose Fluid Total Protein Vancomycin Trough Crossmatch 11/24/21 11/24/21 11/24/21 04:13 05:30 11:10 WBC RBC Hgb Hct MCV MCH MCHC RDW Plt Count Eos % (Auto) Eos # (Auto) Seg Neuts % (Manual) Lymphocytes % (Manual) Seg Neutrophils # Seg Neutrophils # Man Lymphocytes # (Manual) Monocytes # (Manual) PT INR APTT D-Dimer ABG pH ABG pO2 ABG HCO3 ABG O2 Saturation ABG Base Excess ABG Hemoglobin Oxyhemoglobin Sodium Potassium Chloride Carbon Dioxide BUN 31 H Creatinine Glucose 101 H POC Glucose 115 H 107 H Lactic Acid Calcium 7.7 L Phosphorus Magnesium AST ALT Alkaline Phosphatase Lactate Dehydrogenase Troponin T C-Reactive Protein NT-Pro-B Natriuret Pep Total Protein Albumin LDL Cholesterol Direct Vitamin B12 Urine WBC (Auto) Fluid Glucose Fluid Total Protein Vancomycin Trough Crossmatch 11/24/21 11/24/21 11/25/21 16:34 17:57 05:12 WBC RBC 3.11 L Hgb 8.2 L Hct 26.6 L MCV MCH 26 L MCHC RDW 21.3 H Plt Count Eos % (Auto) Eos # (Auto) Seg Neuts % (Manual) Lymphocytes % (Manual) Seg Neutrophils # Seg Neutrophils # Man Lymphocytes # (Manual) Monocytes # (Manual) PT INR APTT D-Dimer ABG pH ABG pO2 ABG HCO3 ABG O2 Saturation ABG Base Excess ABG Hemoglobin Oxyhemoglobin Sodium Potassium Chloride Carbon Dioxide BUN Creatinine Glucose POC Glucose 115 H 110 H Lactic Acid Calcium Phosphorus Magnesium AST ALT Alkaline Phosphatase Lactate Dehydrogenase Troponin T C-Reactive Protein NT-Pro-B Natriuret Pep Total Protein Albumin LDL Cholesterol Direct Vitamin B12 Urine WBC (Auto) Fluid Glucose Fluid Total Protein Vancomycin Trough Crossmatch 11/25/21 11/25/21 11/26/21 05:12 11:20 05:00 WBC RBC 3.30 L Hgb 8.8 L Hct 28.2 L MCV MCH 27 L MCHC RDW 20.7 H Plt Count Eos % (Auto) Eos # (Auto) Seg Neuts % (Manual) Lymphocytes % (Manual) Seg Neutrophils # Seg Neutrophils # Man Lymphocytes # (Manual) Monocytes # (Manual) PT INR APTT D-Dimer ABG pH ABG pO2 ABG HCO3 ABG O2 Saturation ABG Base Excess ABG Hemoglobin Oxyhemoglobin Sodium Potassium Chloride Carbon Dioxide BUN 32 H Creatinine Glucose 118 H POC Glucose 118 H Lactic Acid Calcium 8.2 L Phosphorus Magnesium AST ALT Alkaline Phosphatase Lactate Dehydrogenase Troponin T C-Reactive Protein NT-Pro-B Natriuret Pep Total Protein Albumin LDL Cholesterol Direct Vitamin B12 Urine WBC (Auto) Fluid Glucose Fluid Total Protein Vancomycin Trough Crossmatch 11/26/21 11/26/21 11/26/21 05:00 05:00 05:44 WBC RBC Hgb Hct MCV MCH MCHC RDW Plt Count Eos % (Auto) Eos # (Auto) Seg Neuts % (Manual) Lymphocytes % (Manual) Seg Neutrophils # Seg Neutrophils # Man Lymphocytes # (Manual) Monocytes # (Manual) PT 16.9 H INR 1.24 H APTT D-Dimer ABG pH ABG pO2 ABG HCO3 ABG O2 Saturation ABG Base Excess ABG Hemoglobin Oxyhemoglobin Sodium Potassium Chloride Carbon Dioxide BUN 31 H Creatinine Glucose 104 H POC Glucose 110 H Lactic Acid Calcium 7.9 L Phosphorus Magnesium AST ALT Alkaline Phosphatase Lactate Dehydrogenase Troponin T C-Reactive Protein NT-Pro-B Natriuret Pep Total Protein Albumin LDL Cholesterol Direct Vitamin B12 Urine WBC (Auto) Fluid Glucose Fluid Total Protein Vancomycin Trough Crossmatch 11/26/21 11/27/21 11/27/21 23:55 07:40 07:40 WBC RBC 3.18 L Hgb 8.5 L Hct 27.0 L MCV MCH 27 L MCHC RDW 21.2 H Plt Count Eos % (Auto) Eos # (Auto) Seg Neuts % (Manual) Lymphocytes % (Manual) Seg Neutrophils # Seg Neutrophils # Man Lymphocytes # (Manual) Monocytes # (Manual) PT INR APTT D-Dimer ABG pH ABG pO2 ABG HCO3 ABG O2 Saturation ABG Base Excess ABG Hemoglobin Oxyhemoglobin Sodium Potassium Chloride Carbon Dioxide BUN 27 H Creatinine Glucose 112 H POC Glucose 63 L Lactic Acid Calcium 7.6 L Phosphorus Magnesium AST ALT Alkaline Phosphatase Lactate Dehydrogenase Troponin T C-Reactive Protein NT-Pro-B Natriuret Pep Total Protein Albumin LDL Cholesterol Direct Vitamin B12 Urine WBC (Auto) Fluid Glucose Fluid Total Protein Vancomycin Trough Crossmatch 11/27/21 11/27/21 11/27/21 12:04 13:40 13:40 WBC RBC 3.31 L Hgb 8.7 L Hct 28.0 L MCV MCH 26 L MCHC RDW 20.7 H Plt Count Eos % (Auto) Eos # (Auto) Seg Neuts % (Manual) Lymphocytes % (Manual) Seg Neutrophils # Seg Neutrophils # Man Lymphocytes # (Manual) Monocytes # (Manual) PT INR APTT D-Dimer ABG pH ABG pO2 ABG HCO3 ABG O2 Saturation ABG Base Excess ABG Hemoglobin Oxyhemoglobin Sodium 136 L Potassium Chloride Carbon Dioxide BUN 25 H Creatinine Glucose 127 H POC Glucose 109 H Lactic Acid Calcium 7.6 L Phosphorus Magnesium 1.40 L AST ALT Alkaline Phosphatase Lactate Dehydrogenase Troponin T C-Reactive Protein NT-Pro-B Natriuret Pep Total Protein Albumin LDL Cholesterol Direct Vitamin B12 Urine WBC (Auto) Fluid Glucose Fluid Total Protein Vancomycin Trough Crossmatch 11/27/21 11/27/21 11/28/21 17:44 23:33 12:20 WBC RBC Hgb Hct MCV MCH MCHC RDW Plt Count Eos % (Auto) Eos # (Auto) Seg Neuts % (Manual) Lymphocytes % (Manual) Seg Neutrophils # Seg Neutrophils # Man Lymphocytes # (Manual) Monocytes # (Manual) PT INR APTT D-Dimer ABG pH ABG pO2 ABG HCO3 ABG O2 Saturation ABG Base Excess ABG Hemoglobin Oxyhemoglobin Sodium Potassium Chloride Carbon Dioxide BUN Creatinine Glucose POC Glucose 107 H 108 H 114 H Lactic Acid Calcium Phosphorus Magnesium AST ALT Alkaline Phosphatase Lactate Dehydrogenase Troponin T C-Reactive Protein NT-Pro-B Natriuret Pep Total Protein Albumin LDL Cholesterol Direct Vitamin B12 Urine WBC (Auto) Fluid Glucose Fluid Total Protein Vancomycin Trough Crossmatch 11/29/21 11/29/21 11/29/21 00:09 03:20 03:20 WBC RBC 3.05 L Hgb 8.2 L Hct 25.8 L MCV MCH 27 L MCHC RDW 20.9 H Plt Count Eos % (Auto) Eos # (Auto) Seg Neuts % (Manual) Lymphocytes % (Manual) Seg Neutrophils # Seg Neutrophils # Man Lymphocytes # (Manual) Monocytes # (Manual) PT INR APTT D-Dimer ABG pH ABG pO2 ABG HCO3 ABG O2 Saturation ABG Base Excess ABG Hemoglobin Oxyhemoglobin Sodium 133 L Potassium Chloride Carbon Dioxide BUN 24 H Creatinine Glucose 137 H POC Glucose 134 H Lactic Acid Calcium 7.4 L Phosphorus Magnesium AST ALT Alkaline Phosphatase Lactate Dehydrogenase Troponin T C-Reactive Protein NT-Pro-B Natriuret Pep Total Protein Albumin LDL Cholesterol Direct Vitamin B12 Urine WBC (Auto) Fluid Glucose Fluid Total Protein Vancomycin Trough Crossmatch 11/29/21 11/29/21 11/29/21 05:38 11:39 17:11 WBC RBC Hgb Hct MCV MCH MCHC RDW Plt Count Eos % (Auto) Eos # (Auto) Seg Neuts % (Manual) Lymphocytes % (Manual) Seg Neutrophils # Seg Neutrophils # Man Lymphocytes # (Manual) Monocytes # (Manual) PT INR APTT D-Dimer ABG pH ABG pO2 ABG HCO3 ABG O2 Saturation ABG Base Excess ABG Hemoglobin Oxyhemoglobin Sodium Potassium Chloride Carbon Dioxide BUN Creatinine Glucose POC Glucose 117 H 143 H 124 H Lactic Acid Calcium Phosphorus Magnesium AST ALT Alkaline Phosphatase Lactate Dehydrogenase Troponin T C-Reactive Protein NT-Pro-B Natriuret Pep Total Protein Albumin LDL Cholesterol Direct Vitamin B12 Urine WBC (Auto) Fluid Glucose Fluid Total Protein Vancomycin Trough Crossmatch 11/29/21 11/30/21 11/30/21 20:15 05:40 05:40 WBC 12.6 H RBC 3.41 L Hgb 9.1 L Hct 28.9 L MCV MCH 27 L MCHC RDW 20.4 H Plt Count Eos % (Auto) Eos # (Auto) Seg Neuts % (Manual) Lymphocytes % (Manual) Seg Neutrophils # Seg Neutrophils # Man Lymphocytes # (Manual) Monocytes # (Manual) PT INR APTT D-Dimer ABG pH ABG pO2 ABG HCO3 ABG O2 Saturation ABG Base Excess ABG Hemoglobin Oxyhemoglobin Sodium Potassium Chloride Carbon Dioxide BUN 24 H Creatinine Glucose 131 H POC Glucose Lactic Acid Calcium 7.6 L Phosphorus Magnesium AST ALT Alkaline Phosphatase Lactate Dehydrogenase Troponin T 0.045 H C-Reactive Protein NT-Pro-B Natriuret Pep Total Protein Albumin LDL Cholesterol Direct 25 L Vitamin B12 Urine WBC (Auto) Fluid Glucose Fluid Total Protein Vancomycin Trough Crossmatch 11/30/21 11/30/21 12/01/21 11:29 16:51 05:00 WBC RBC 2.97 L Hgb 8.0 L Hct 25.0 L MCV MCH 27 L MCHC RDW 20.8 H Plt Count Eos % (Auto) Eos # (Auto) Seg Neuts % (Manual) Lymphocytes % (Manual) Seg Neutrophils # Seg Neutrophils # Man Lymphocytes # (Manual) Monocytes # (Manual) PT INR APTT D-Dimer ABG pH ABG pO2 ABG HCO3 ABG O2 Saturation ABG Base Excess ABG Hemoglobin Oxyhemoglobin Sodium Potassium Chloride Carbon Dioxide BUN Creatinine Glucose POC Glucose 123 H 114 H Lactic Acid Calcium Phosphorus Magnesium AST ALT Alkaline Phosphatase Lactate Dehydrogenase Troponin T C-Reactive Protein NT-Pro-B Natriuret Pep Total Protein Albumin LDL Cholesterol Direct Vitamin B12 Urine WBC (Auto) Fluid Glucose Fluid Total Protein Vancomycin Trough Crossmatch 12/01/21 12/01/21 12/01/21 05:00 05:25 11:54 WBC RBC Hgb Hct MCV MCH MCHC RDW Plt Count Eos % (Auto) Eos # (Auto) Seg Neuts % (Manual) Lymphocytes % (Manual) Seg Neutrophils # Seg Neutrophils # Man Lymphocytes # (Manual) Monocytes # (Manual) PT INR APTT D-Dimer ABG pH ABG pO2 ABG HCO3 ABG O2 Saturation ABG Base Excess ABG Hemoglobin Oxyhemoglobin Sodium 136 L Potassium Chloride Carbon Dioxide BUN 24 H Creatinine Glucose 117 H POC Glucose 108 H 107 H Lactic Acid Calcium 7.5 L Phosphorus Magnesium 1.60 L AST ALT Alkaline Phosphatase Lactate Dehydrogenase Troponin T C-Reactive Protein NT-Pro-B Natriuret Pep Total Protein Albumin LDL Cholesterol Direct Vitamin B12 Urine WBC (Auto) Fluid Glucose Fluid Total Protein Vancomycin Trough Crossmatch 12/01/21 12/02/21 12/02/21 17:40 00:07 04:20 WBC RBC 2.92 L Hgb 7.7 L Hct 24.3 L MCV MCH 26 L MCHC RDW 20.5 H Plt Count Eos % (Auto) Eos # (Auto) Seg Neuts % (Manual) Lymphocytes % (Manual) Seg Neutrophils # Seg Neutrophils # Man Lymphocytes # (Manual) Monocytes # (Manual) PT INR APTT D-Dimer ABG pH ABG pO2 ABG HCO3 ABG O2 Saturation ABG Base Excess ABG Hemoglobin Oxyhemoglobin Sodium Potassium Chloride Carbon Dioxide BUN Creatinine Glucose POC Glucose 123 H 110 H Lactic Acid Calcium Phosphorus Magnesium AST ALT Alkaline Phosphatase Lactate Dehydrogenase Troponin T C-Reactive Protein NT-Pro-B Natriuret Pep Total Protein Albumin LDL Cholesterol Direct Vitamin B12 Urine WBC (Auto) Fluid Glucose Fluid Total Protein Vancomycin Trough Crossmatch 12/02/21 12/02/21 12/02/21 04:20 11:17 18:20 WBC RBC Hgb Hct MCV MCH MCHC RDW Plt Count Eos % (Auto) Eos # (Auto) Seg Neuts % (Manual) Lymphocytes % (Manual) Seg Neutrophils # Seg Neutrophils # Man Lymphocytes # (Manual) Monocytes # (Manual) PT INR APTT D-Dimer ABG pH ABG pO2 ABG HCO3 ABG O2 Saturation ABG Base Excess ABG Hemoglobin Oxyhemoglobin Sodium 135 L Potassium Chloride Carbon Dioxide BUN 26 H Creatinine Glucose 121 H POC Glucose 117 H 113 H Lactic Acid Calcium 7.4 L Phosphorus Magnesium AST ALT Alkaline Phosphatase Lactate Dehydrogenase Troponin T C-Reactive Protein NT-Pro-B Natriuret Pep Total Protein Albumin LDL Cholesterol Direct Vitamin B12 Urine WBC (Auto) Fluid Glucose Fluid Total Protein Vancomycin Trough Crossmatch 12/03/21 12/03/21 12/03/21 00:12 04:00 04:00 WBC RBC 2.99 L Hgb 7.8 L Hct 24.6 L MCV MCH 26 L MCHC RDW 20.2 H Plt Count Eos % (Auto) Eos # (Auto) Seg Neuts % (Manual) Lymphocytes % (Manual) Seg Neutrophils # Seg Neutrophils # Man Lymphocytes # (Manual) Monocytes # (Manual) PT INR APTT D-Dimer ABG pH ABG pO2 ABG HCO3 ABG O2 Saturation ABG Base Excess ABG Hemoglobin Oxyhemoglobin Sodium 136 L Potassium Chloride Carbon Dioxide BUN 27 H Creatinine Glucose 133 H POC Glucose 121 H Lactic Acid Calcium 7.5 L Phosphorus Magnesium AST ALT Alkaline Phosphatase Lactate Dehydrogenase Troponin T C-Reactive Protein NT-Pro-B Natriuret Pep Total Protein Albumin LDL Cholesterol Direct Vitamin B12 Urine WBC (Auto) Fluid Glucose Fluid Total Protein Vancomycin Trough Crossmatch 12/03/21 12/03/21 12/03/21 06:30 11:13 16:00 WBC RBC Hgb Hct MCV MCH MCHC RDW Plt Count Eos % (Auto) Eos # (Auto) Seg Neuts % (Manual) Lymphocytes % (Manual) Seg Neutrophils # Seg Neutrophils # Man Lymphocytes # (Manual) Monocytes # (Manual) PT INR APTT D-Dimer ABG pH ABG pO2 ABG HCO3 ABG O2 Saturation ABG Base Excess ABG Hemoglobin Oxyhemoglobin Sodium Potassium Chloride Carbon Dioxide BUN Creatinine Glucose POC Glucose 129 H 125 H 125 H Lactic Acid Calcium Phosphorus Magnesium AST ALT Alkaline Phosphatase Lactate Dehydrogenase Troponin T C-Reactive Protein NT-Pro-B Natriuret Pep Total Protein Albumin LDL Cholesterol Direct Vitamin B12 Urine WBC (Auto) Fluid Glucose Fluid Total Protein Vancomycin Trough Crossmatch 12/03/21 12/04/21 12/04/21 23:32 04:00 05:36 WBC RBC Hgb Hct MCV MCH MCHC RDW Plt Count Eos % (Auto) Eos # (Auto) Seg Neuts % (Manual) Lymphocytes % (Manual) Seg Neutrophils # Seg Neutrophils # Man Lymphocytes # (Manual) Monocytes # (Manual) PT INR APTT D-Dimer ABG pH ABG pO2 ABG HCO3 ABG O2 Saturation ABG Base Excess ABG Hemoglobin Oxyhemoglobin Sodium Potassium 3.5 L Chloride Carbon Dioxide BUN 26 H Creatinine 0.5 L Glucose 151 H POC Glucose 133 H 142 H Lactic Acid Calcium 8.3 L Phosphorus Magnesium AST ALT Alkaline Phosphatase Lactate Dehydrogenase Troponin T C-Reactive Protein NT-Pro-B Natriuret Pep Total Protein Albumin LDL Cholesterol Direct Vitamin B12 Urine WBC (Auto) Fluid Glucose Fluid Total Protein Vancomycin Trough Crossmatch 12/04/21 12/04/21 12/05/21 11:24 15:58 04:36 WBC RBC Hgb Hct MCV MCH MCHC RDW Plt Count Eos % (Auto) Eos # (Auto) Seg Neuts % (Manual) Lymphocytes % (Manual) Seg Neutrophils # Seg Neutrophils # Man Lymphocytes # (Manual) Monocytes # (Manual) PT INR APTT D-Dimer ABG pH ABG pO2 ABG HCO3 ABG O2 Saturation ABG Base Excess ABG Hemoglobin Oxyhemoglobin Sodium Potassium Chloride Carbon Dioxide BUN 21 H Creatinine 0.5 L Glucose 119 H POC Glucose 130 H 111 H Lactic Acid Calcium 8.3 L Phosphorus Magnesium AST ALT Alkaline Phosphatase Lactate Dehydrogenase Troponin T C-Reactive Protein NT-Pro-B Natriuret Pep Total Protein Albumin LDL Cholesterol Direct Vitamin B12 Urine WBC (Auto) Fluid Glucose Fluid Total Protein Vancomycin Trough Crossmatch 12/05/21 12/05/21 12/05/21 05:15 10:40 11:12 WBC RBC 2.98 L Hgb 8.1 L Hct 24.6 L MCV MCH 27 L MCHC RDW 20.8 H Plt Count Eos % (Auto) Eos # (Auto) Seg Neuts % (Manual) Lymphocytes % (Manual) Seg Neutrophils # Seg Neutrophils # Man Lymphocytes # (Manual) Monocytes # (Manual) PT INR APTT D-Dimer ABG pH ABG pO2 ABG HCO3 ABG O2 Saturation ABG Base Excess ABG Hemoglobin Oxyhemoglobin Sodium Potassium Chloride Carbon Dioxide BUN Creatinine Glucose POC Glucose 107 H 110 H Lactic Acid Calcium Phosphorus Magnesium AST ALT Alkaline Phosphatase Lactate Dehydrogenase Troponin T C-Reactive Protein NT-Pro-B Natriuret Pep Total Protein Albumin LDL Cholesterol Direct Vitamin B12 Urine WBC (Auto) Fluid Glucose Fluid Total Protein Vancomycin Trough Crossmatch 12/05/21 12/06/21 12/06/21 23:39 04:25 04:25 WBC RBC 2.95 L Hgb 7.9 L Hct 24.7 L MCV MCH 27 L MCHC RDW 20.9 H Plt Count Eos % (Auto) Eos # (Auto) Seg Neuts % (Manual) Lymphocytes % (Manual) Seg Neutrophils # Seg Neutrophils # Man Lymphocytes # (Manual) Monocytes # (Manual) PT INR APTT D-Dimer ABG pH ABG pO2 ABG HCO3 ABG O2 Saturation ABG Base Excess ABG Hemoglobin Oxyhemoglobin Sodium Potassium Chloride Carbon Dioxide BUN 22 H Creatinine 0.5 L Glucose 136 H POC Glucose 118 H Lactic Acid Calcium 8.2 L Phosphorus Magnesium AST ALT Alkaline Phosphatase Lactate Dehydrogenase Troponin T C-Reactive Protein NT-Pro-B Natriuret Pep Total Protein Albumin LDL Cholesterol Direct Vitamin B12 Urine WBC (Auto) Fluid Glucose Fluid Total Protein Vancomycin Trough Crossmatch 12/06/21 12/06/21 12/07/21 05:28 11:27 04:00 WBC RBC Hgb 7.2 L Hct 21.8 L MCV MCH MCHC RDW Plt Count Eos % (Auto) Eos # (Auto) Seg Neuts % (Manual) Lymphocytes % (Manual) Seg Neutrophils # Seg Neutrophils # Man Lymphocytes # (Manual) Monocytes # (Manual) PT INR APTT D-Dimer ABG pH ABG pO2 ABG HCO3 ABG O2 Saturation ABG Base Excess ABG Hemoglobin Oxyhemoglobin Sodium Potassium Chloride Carbon Dioxide BUN Creatinine Glucose POC Glucose 142 H 126 H Lactic Acid Calcium Phosphorus Magnesium AST ALT Alkaline Phosphatase Lactate Dehydrogenase Troponin T C-Reactive Protein NT-Pro-B Natriuret Pep Total Protein Albumin LDL Cholesterol Direct Vitamin B12 Urine WBC (Auto) Fluid Glucose Fluid Total Protein Vancomycin Trough Crossmatch 0212/07/21 12/07/21 04:00 05:30 11:12 WBC RBC Hgb Hct MCV MCH MCHC RDW Plt Count Eos % (Auto) Eos # (Auto) Seg Neuts % (Manual) Lymphocytes % (Manual) Seg Neutrophils # Seg Neutrophils # Man Lymphocytes # (Manual) Monocytes # (Manual) PT INR APTT D-Dimer ABG pH ABG pO2 ABG HCO3 ABG O2 Saturation ABG Base Excess ABG Hemoglobin Oxyhemoglobin Sodium Potassium Chloride Carbon Dioxide BUN 22 H Creatinine Glucose 119 H POC Glucose 121 H 124 H Lactic Acid Calcium 8.0 L Phosphorus Magnesium AST ALT Alkaline Phosphatase Lactate Dehydrogenase Troponin T C-Reactive Protein NT-Pro-B Natriuret Pep Total Protein Albumin LDL Cholesterol Direct Vitamin B12 Urine WBC (Auto) Fluid Glucose Fluid Total Protein Vancomycin Trough Crossmatch 12/08/21 12/08/21 12/08/21 04:00 04:00 05:39 WBC RBC 2.81 L Hgb 7.7 L Hct 23.5 L MCV MCH MCHC RDW 21.2 H Plt Count Eos % (Auto) Eos # (Auto) Seg Neuts % (Manual) Lymphocytes % (Manual) Seg Neutrophils # Seg Neutrophils # Man Lymphocytes # (Manual) Monocytes # (Manual) PT INR APTT D-Dimer ABG pH ABG pO2 ABG HCO3 ABG O2 Saturation ABG Base Excess ABG Hemoglobin Oxyhemoglobin Sodium 135 L Potassium Chloride Carbon Dioxide BUN 23 H Creatinine Glucose 109 H POC Glucose 112 H Lactic Acid Calcium Phosphorus Magnesium AST ALT Alkaline Phosphatase Lactate Dehydrogenase Troponin T C-Reactive Protein NT-Pro-B Natriuret Pep Total Protein Albumin LDL Cholesterol Direct Vitamin B12 Urine WBC (Auto) Fluid Glucose Fluid Total Protein Vancomycin Trough Crossmatch 12/08/21 12/09/21 12/09/21 11:03 04:20 04:20 WBC RBC 2.67 L Hgb 7.6 L Hct 22.1 L MCV MCH MCHC RDW 20.8 H Plt Count Eos % (Auto) Eos # (Auto) Seg Neuts % (Manual) Lymphocytes % (Manual) Seg Neutrophils # Seg Neutrophils # Man Lymphocytes # (Manual) Monocytes # (Manual) PT INR APTT D-Dimer ABG pH ABG pO2 ABG HCO3 ABG O2 Saturation ABG Base Excess ABG Hemoglobin Oxyhemoglobin Sodium 135 L Potassium Chloride 97.8 L Carbon Dioxide BUN 26 H Creatinine Glucose 119 H POC Glucose 108 H Lactic Acid Calcium 7.7 L Phosphorus Magnesium AST ALT Alkaline Phosphatase Lactate Dehydrogenase Troponin T C-Reactive Protein NT-Pro-B Natriuret Pep Total Protein Albumin LDL Cholesterol Direct Vitamin B12 Urine WBC (Auto) Fluid Glucose Fluid Total Protein Vancomycin Trough Crossmatch 12/09/21 12/10/21 12/10/21 11:26 04:33 11:12 WBC RBC Hgb Hct MCV MCH MCHC RDW Plt Count Eos % (Auto) Eos # (Auto) Seg Neuts % (Manual) Lymphocytes % (Manual) Seg Neutrophils # Seg Neutrophils # Man Lymphocytes # (Manual) Monocytes # (Manual) PT INR APTT D-Dimer ABG pH ABG pO2 ABG HCO3 ABG O2 Saturation ABG Base Excess ABG Hemoglobin Oxyhemoglobin Sodium 136 L Potassium Chloride Carbon Dioxide BUN 27 H Creatinine Glucose 117 H POC Glucose 110 H 117 H Lactic Acid Calcium 8.2 L Phosphorus Magnesium AST ALT Alkaline Phosphatase Lactate Dehydrogenase Troponin T C-Reactive Protein NT-Pro-B Natriuret Pep Total Protein Albumin LDL Cholesterol Direct Vitamin B12 Urine WBC (Auto) Fluid Glucose Fluid Total Protein Vancomycin Trough Crossmatch 12/10/21 12/10/21 12/11/21 16:02 23:31 04:35 WBC RBC 2.57 L Hgb 7.0 L Hct 21.4 L MCV MCH 27 L MCHC RDW 21.1 H Plt Count Eos % (Auto) Eos # (Auto) Seg Neuts % (Manual) Lymphocytes % (Manual) Seg Neutrophils # Seg Neutrophils # Man Lymphocytes # (Manual) Monocytes # (Manual) PT INR APTT D-Dimer ABG pH ABG pO2 ABG HCO3 ABG O2 Saturation ABG Base Excess ABG Hemoglobin Oxyhemoglobin Sodium Potassium Chloride Carbon Dioxide BUN Creatinine Glucose POC Glucose 137 H 111 H Lactic Acid Calcium Phosphorus Magnesium AST ALT Alkaline Phosphatase Lactate Dehydrogenase Troponin T C-Reactive Protein NT-Pro-B Natriuret Pep Total Protein Albumin LDL Cholesterol Direct Vitamin B12 Urine WBC (Auto) Fluid Glucose Fluid Total Protein Vancomycin Trough Crossmatch 12/11/21 12/11/21 12/11/21 04:35 12:46 16:07 WBC RBC Hgb Hct MCV MCH MCHC RDW Plt Count Eos % (Auto) Eos # (Auto) Seg Neuts % (Manual) Lymphocytes % (Manual) Seg Neutrophils # Seg Neutrophils # Man Lymphocytes # (Manual) Monocytes # (Manual) PT INR APTT D-Dimer ABG pH ABG pO2 ABG HCO3 ABG O2 Saturation ABG Base Excess ABG Hemoglobin Oxyhemoglobin Sodium 136 L Potassium Chloride Carbon Dioxide BUN 27 H Creatinine Glucose 112 H POC Glucose 115 H 111 H Lactic Acid Calcium 7.6 L Phosphorus Magnesium AST ALT Alkaline Phosphatase Lactate Dehydrogenase Troponin T C-Reactive Protein NT-Pro-B Natriuret Pep Total Protein Albumin LDL Cholesterol Direct Vitamin B12 Urine WBC (Auto) Fluid Glucose Fluid Total Protein Vancomycin Trough Crossmatch 12/11/21 12/12/21 12/12/21 23:42 04:30 04:30 WBC RBC 2.60 L Hgb 7.1 L Hct 21.5 L MCV MCH 27 L MCHC RDW 20.3 H Plt Count Eos % (Auto) Eos # (Auto) Seg Neuts % (Manual) Lymphocytes % (Manual) Seg Neutrophils # Seg Neutrophils # Man Lymphocytes # (Manual) Monocytes # (Manual) PT INR APTT D-Dimer ABG pH ABG pO2 ABG HCO3 ABG O2 Saturation ABG Base Excess ABG Hemoglobin Oxyhemoglobin Sodium 135 L Potassium Chloride 97.9 L Carbon Dioxide BUN 26 H Creatinine 0.5 L Glucose 138 H POC Glucose 115 H Lactic Acid Calcium 8.2 L Phosphorus Magnesium AST ALT Alkaline Phosphatase Lactate Dehydrogenase Troponin T C-Reactive Protein NT-Pro-B Natriuret Pep Total Protein Albumin LDL Cholesterol Direct Vitamin B12 Urine WBC (Auto) Fluid Glucose Fluid Total Protein Vancomycin Trough Crossmatch 12/12/21 12/12/21 12/12/21 04:30 05:10 11:51 WBC RBC Hgb Hct MCV MCH MCHC RDW Plt Count Eos % (Auto) Eos # (Auto) Seg Neuts % (Manual) Lymphocytes % (Manual) Seg Neutrophils # Seg Neutrophils # Man Lymphocytes # (Manual) Monocytes # (Manual) PT INR APTT D-Dimer ABG pH ABG pO2 ABG HCO3 ABG O2 Saturation ABG Base Excess ABG Hemoglobin Oxyhemoglobin Sodium Potassium Chloride Carbon Dioxide BUN Creatinine Glucose POC Glucose 119 H 119 H Lactic Acid Calcium Phosphorus Magnesium AST ALT Alkaline Phosphatase Lactate Dehydrogenase Troponin T C-Reactive Protein NT-Pro-B Natriuret Pep Total Protein Albumin LDL Cholesterol Direct Vitamin B12 Urine WBC (Auto) Fluid Glucose Fluid Total Protein Vancomycin Trough Crossmatch See Detail 12/13/21 12/13/21 12/13/21 00:52 04:00 04:00 WBC RBC 2.73 L Hgb 7.4 L Hct 22.8 L MCV MCH 27 L MCHC RDW 20.5 H Plt Count Eos % (Auto) Eos # (Auto) Seg Neuts % (Manual) Lymphocytes % (Manual) Seg Neutrophils # Seg Neutrophils # Man Lymphocytes # (Manual) Monocytes # (Manual) PT INR APTT D-Dimer ABG pH ABG pO2 ABG HCO3 ABG O2 Saturation ABG Base Excess ABG Hemoglobin Oxyhemoglobin Sodium 134 L Potassium Chloride 96.7 L Carbon Dioxide BUN 23 H Creatinine 0.5 L Glucose 131 H POC Glucose 131 H Lactic Acid Calcium 8.1 L Phosphorus Magnesium AST ALT Alkaline Phosphatase Lactate Dehydrogenase Troponin T C-Reactive Protein NT-Pro-B Natriuret Pep Total Protein Albumin LDL Cholesterol Direct Vitamin B12 Urine WBC (Auto) Fluid Glucose Fluid Total Protein Vancomycin Trough Crossmatch 12/13/21 12/13/21 12/13/21 05:23 12:11 17:18 WBC RBC Hgb Hct MCV MCH MCHC RDW Plt Count Eos % (Auto) Eos # (Auto) Seg Neuts % (Manual) Lymphocytes % (Manual) Seg Neutrophils # Seg Neutrophils # Man Lymphocytes # (Manual) Monocytes # (Manual) PT INR APTT D-Dimer ABG pH ABG pO2 ABG HCO3 ABG O2 Saturation ABG Base Excess ABG Hemoglobin Oxyhemoglobin Sodium Potassium Chloride Carbon Dioxide BUN Creatinine Glucose POC Glucose 121 H 143 H 148 H Lactic Acid Calcium Phosphorus Magnesium AST ALT Alkaline Phosphatase Lactate Dehydrogenase Troponin T C-Reactive Protein NT-Pro-B Natriuret Pep Total Protein Albumin LDL Cholesterol Direct Vitamin B12 Urine WBC (Auto) Fluid Glucose Fluid Total Protein Vancomycin Trough Crossmatch 12/14/21 12/14/21 12/14/21 00:54 04:20 04:20 WBC RBC 2.39 L Hgb 6.5 L Hct 20.3 L MCV MCH 27 L MCHC RDW 20.3 H Plt Count Eos % (Auto) Eos # (Auto) Seg Neuts % (Manual) Lymphocytes % (Manual) Seg Neutrophils # Seg Neutrophils # Man Lymphocytes # (Manual) Monocytes # (Manual) PT INR APTT D-Dimer ABG pH ABG pO2 ABG HCO3 ABG O2 Saturation ABG Base Excess ABG Hemoglobin Oxyhemoglobin Sodium 130 L Potassium Chloride 93.5 L Carbon Dioxide BUN 25 H Creatinine Glucose 123 H POC Glucose 123 H Lactic Acid Calcium 8.0 L Phosphorus Magnesium AST ALT Alkaline Phosphatase Lactate Dehydrogenase Troponin T C-Reactive Protein NT-Pro-B Natriuret Pep Total Protein Albumin LDL Cholesterol Direct Vitamin B12 Urine WBC (Auto) Fluid Glucose Fluid Total Protein Vancomycin Trough Crossmatch 12/14/21 12/14/21 12/14/21 05:06 08:17 10:30 WBC RBC Hgb Hct MCV MCH MCHC RDW Plt Count Eos % (Auto) Eos # (Auto) Seg Neuts % (Manual) Lymphocytes % (Manual) Seg Neutrophils # Seg Neutrophils # Man Lymphocytes # (Manual) Monocytes # (Manual) PT INR APTT D-Dimer ABG pH ABG pO2 ABG HCO3 ABG O2 Saturation ABG Base Excess ABG Hemoglobin Oxyhemoglobin Sodium Potassium Chloride Carbon Dioxide BUN Creatinine Glucose POC Glucose 131 H 119 H Lactic Acid Calcium Phosphorus Magnesium AST ALT Alkaline Phosphatase Lactate Dehydrogenase Troponin T C-Reactive Protein NT-Pro-B Natriuret Pep Total Protein Albumin LDL Cholesterol Direct Vitamin B12 Urine WBC (Auto) Fluid Glucose Fluid Total Protein Vancomycin Trough Crossmatch See Detail 12/14/21 12/14/21 12/14/21 12:15 16:37 23:27 WBC RBC Hgb Hct MCV MCH MCHC RDW Plt Count Eos % (Auto) Eos # (Auto) Seg Neuts % (Manual) Lymphocytes % (Manual) Seg Neutrophils # Seg Neutrophils # Man Lymphocytes # (Manual) Monocytes # (Manual) PT INR APTT D-Dimer ABG pH ABG pO2 ABG HCO3 ABG O2 Saturation ABG Base Excess ABG Hemoglobin Oxyhemoglobin Sodium Potassium Chloride Carbon Dioxide BUN Creatinine Glucose POC Glucose 147 H 141 H 130 H Lactic Acid Calcium Phosphorus Magnesium AST ALT Alkaline Phosphatase Lactate Dehydrogenase Troponin T C-Reactive Protein NT-Pro-B Natriuret Pep Total Protein Albumin LDL Cholesterol Direct Vitamin B12 Urine WBC (Auto) Fluid Glucose Fluid Total Protein Vancomycin Trough Crossmatch 12/15/21 12/15/21 12/15/21 05:00 07:00 07:00 WBC 12.3 H RBC 3.27 L Hgb 8.8 L Hct 27.5 L D MCV MCH 27 L MCHC RDW 19.0 H Plt Count Eos % (Auto) Eos # (Auto) Seg Neuts % (Manual) Lymphocytes % (Manual) Seg Neutrophils # Seg Neutrophils # Man Lymphocytes # (Manual) Monocytes # (Manual) PT INR APTT D-Dimer ABG pH ABG pO2 ABG HCO3 ABG O2 Saturation ABG Base Excess ABG Hemoglobin Oxyhemoglobin Sodium 134 L Potassium Chloride 95.7 L Carbon Dioxide BUN 28 H Creatinine Glucose 129 H POC Glucose 129 H Lactic Acid Calcium 8.2 L Phosphorus Magnesium AST ALT Alkaline Phosphatase Lactate Dehydrogenase Troponin T C-Reactive Protein NT-Pro-B Natriuret Pep Total Protein Albumin LDL Cholesterol Direct Vitamin B12 Urine WBC (Auto) Fluid Glucose Fluid Total Protein Vancomycin Trough Crossmatch 12/15/21 12/15/21 12/15/21 11:18 16:00 23:39 WBC RBC Hgb Hct MCV MCH MCHC RDW Plt Count Eos % (Auto) Eos # (Auto) Seg Neuts % (Manual) Lymphocytes % (Manual) Seg Neutrophils # Seg Neutrophils # Man Lymphocytes # (Manual) Monocytes # (Manual) PT INR APTT D-Dimer ABG pH ABG pO2 ABG HCO3 ABG O2 Saturation ABG Base Excess ABG Hemoglobin Oxyhemoglobin Sodium Potassium Chloride Carbon Dioxide BUN Creatinine Glucose POC Glucose 139 H 137 H 146 H Lactic Acid Calcium Phosphorus Magnesium AST ALT Alkaline Phosphatase Lactate Dehydrogenase Troponin T C-Reactive Protein NT-Pro-B Natriuret Pep Total Protein Albumin LDL Cholesterol Direct Vitamin B12 Urine WBC (Auto) Fluid Glucose Fluid Total Protein Vancomycin Trough Crossmatch 12/16/21 12/16/21 12/16/21 05:24 10:21 10:21 WBC 15.3 H RBC 3.24 L Hgb 8.9 L Hct 27.7 L MCV MCH MCHC RDW 19.0 H Plt Count Eos % (Auto) Eos # (Auto) Seg Neuts % (Manual) Lymphocytes % (Manual) Seg Neutrophils # Seg Neutrophils # Man Lymphocytes # (Manual) Monocytes # (Manual) PT INR APTT D-Dimer ABG pH ABG pO2 ABG HCO3 ABG O2 Saturation ABG Base Excess ABG Hemoglobin Oxyhemoglobin Sodium 131 L Potassium 3.5 L Chloride 92.7 L Carbon Dioxide BUN 36 H Creatinine Glucose 160 H POC Glucose 121 H Lactic Acid Calcium Phosphorus Magnesium 1.60 L AST ALT Alkaline Phosphatase Lactate Dehydrogenase Troponin T C-Reactive Protein NT-Pro-B Natriuret Pep Total Protein Albumin LDL Cholesterol Direct Vitamin B12 Urine WBC (Auto) Fluid Glucose Fluid Total Protein Vancomycin Trough Crossmatch 12/16/21 12/16/21 12/16/21 11:21 18:28 20:52 WBC RBC Hgb Hct MCV MCH MCHC RDW Plt Count Eos % (Auto) Eos # (Auto) Seg Neuts % (Manual) Lymphocytes % (Manual) Seg Neutrophils # Seg Neutrophils # Man Lymphocytes # (Manual) Monocytes # (Manual) PT INR APTT D-Dimer ABG pH 7.479 H ABG pO2 79.3 L ABG HCO3 27.3 H ABG O2 Saturation ABG Base Excess 3.6 H ABG Hemoglobin 9.1 L Oxyhemoglobin 94.9 L Sodium Potassium Chloride Carbon Dioxide BUN Creatinine Glucose POC Glucose 153 H 132 H Lactic Acid Calcium Phosphorus Magnesium AST ALT Alkaline Phosphatase Lactate Dehydrogenase Troponin T C-Reactive Protein NT-Pro-B Natriuret Pep Total Protein Albumin LDL Cholesterol Direct Vitamin B12 Urine WBC (Auto) Fluid Glucose Fluid Total Protein Vancomycin Trough Crossmatch 12/16/21 12/17/21 12/17/21 23:30 04:25 04:25 WBC 12.3 H RBC 2.16 L Hgb 6.0 L Hct 18.1 L* D MCV MCH MCHC RDW 19.4 H Plt Count Eos % (Auto) Eos # (Auto) Seg Neuts % (Manual) Lymphocytes % (Manual) Seg Neutrophils # Seg Neutrophils # Man Lymphocytes # (Manual) Monocytes # (Manual) PT INR APTT D-Dimer ABG pH ABG pO2 ABG HCO3 ABG O2 Saturation ABG Base Excess ABG Hemoglobin Oxyhemoglobin Sodium 132 L Potassium 3.2 L Chloride 112.0 H Carbon Dioxide BUN 32 H Creatinine Glucose 122 H POC Glucose 137 H Lactic Acid Calcium 6.8 L D Phosphorus Magnesium AST ALT Alkaline Phosphatase Lactate Dehydrogenase Troponin T C-Reactive Protein NT-Pro-B Natriuret Pep Total Protein Albumin LDL Cholesterol Direct Vitamin B12 Urine WBC (Auto) Fluid Glucose Fluid Total Protein Vancomycin Trough Crossmatch 12/17/21 12/17/21 12/17/21 05:30 11:49 14:45 WBC RBC Hgb 9.7 L D Hct MCV MCH MCHC RDW Plt Count Eos % (Auto) Eos # (Auto) Seg Neuts % (Manual) Lymphocytes % (Manual) Seg Neutrophils # Seg Neutrophils # Man Lymphocytes # (Manual) Monocytes # (Manual) PT INR APTT D-Dimer ABG pH ABG pO2 ABG HCO3 ABG O2 Saturation ABG Base Excess ABG Hemoglobin Oxyhemoglobin Sodium Potassium Chloride Carbon Dioxide BUN Creatinine Glucose POC Glucose 137 H 143 H Lactic Acid Calcium Phosphorus Magnesium AST ALT Alkaline Phosphatase Lactate Dehydrogenase Troponin T C-Reactive Protein NT-Pro-B Natriuret Pep Total Protein Albumin LDL Cholesterol Direct Vitamin B12 Urine WBC (Auto) Fluid Glucose Fluid Total Protein Vancomycin Trough Crossmatch 12/17/21 12/18/21 12/18/21 17:01 05:04 05:04 WBC 13.8 H RBC 3.44 L Hgb 9.9 L Hct 28.8 L MCV MCH MCHC RDW 18.1 H Plt Count Eos % (Auto) Eos # (Auto) Seg Neuts % (Manual) Lymphocytes % (Manual) Seg Neutrophils # Seg Neutrophils # Man Lymphocytes # (Manual) Monocytes # (Manual) PT INR APTT D-Dimer ABG pH ABG pO2 ABG HCO3 ABG O2 Saturation ABG Base Excess ABG Hemoglobin Oxyhemoglobin Sodium 132 L Potassium Chloride 97.4 L Carbon Dioxide BUN 38 H Creatinine Glucose 134 H POC Glucose 132 H Lactic Acid Calcium Phosphorus Magnesium AST ALT Alkaline Phosphatase Lactate Dehydrogenase Troponin T C-Reactive Protein NT-Pro-B Natriuret Pep Total Protein Albumin LDL Cholesterol Direct Vitamin B12 Urine WBC (Auto) Fluid Glucose Fluid Total Protein Vancomycin Trough Crossmatch 12/18/21 12/18/21 12/18/21 05:28 10:57 16:27 WBC RBC Hgb Hct MCV MCH MCHC RDW Plt Count Eos % (Auto) Eos # (Auto) Seg Neuts % (Manual) Lymphocytes % (Manual) Seg Neutrophils # Seg Neutrophils # Man Lymphocytes # (Manual) Monocytes # (Manual) PT INR APTT D-Dimer ABG pH ABG pO2 ABG HCO3 ABG O2 Saturation ABG Base Excess ABG Hemoglobin Oxyhemoglobin Sodium Potassium Chloride Carbon Dioxide BUN Creatinine Glucose POC Glucose 118 H 132 H 130 H Lactic Acid Calcium Phosphorus Magnesium AST ALT Alkaline Phosphatase Lactate Dehydrogenase Troponin T C-Reactive Protein NT-Pro-B Natriuret Pep Total Protein Albumin LDL Cholesterol Direct Vitamin B12 Urine WBC (Auto) Fluid Glucose Fluid Total Protein Vancomycin Trough Crossmatch 12/19/21 12/19/21 12/19/21 00:02 04:41 04:41 WBC 16.0 H RBC 3.45 L Hgb 9.7 L Hct 29.1 L MCV MCH MCHC RDW 17.8 H Plt Count Eos % (Auto) Eos # (Auto) Seg Neuts % (Manual) Lymphocytes % (Manual) Seg Neutrophils # Seg Neutrophils # Man Lymphocytes # (Manual) Monocytes # (Manual) PT INR APTT D-Dimer ABG pH ABG pO2 ABG HCO3 ABG O2 Saturation ABG Base Excess ABG Hemoglobin Oxyhemoglobin Sodium 133 L Potassium Chloride 97.9 L Carbon Dioxide BUN 36 H Creatinine 0.5 L Glucose 126 H POC Glucose 127 H Lactic Acid Calcium 8.3 L Phosphorus Magnesium AST ALT Alkaline Phosphatase Lactate Dehydrogenase Troponin T C-Reactive Protein NT-Pro-B Natriuret Pep Total Protein Albumin LDL Cholesterol Direct Vitamin B12 Urine WBC (Auto) Fluid Glucose Fluid Total Protein Vancomycin Trough Crossmatch 12/19/21 12/19/21 12/19/21 05:26 12:20 16:43 WBC RBC Hgb Hct MCV MCH MCHC RDW Plt Count Eos % (Auto) Eos # (Auto) Seg Neuts % (Manual) Lymphocytes % (Manual) Seg Neutrophils # Seg Neutrophils # Man Lymphocytes # (Manual) Monocytes # (Manual) PT INR APTT D-Dimer ABG pH ABG pO2 ABG HCO3 ABG O2 Saturation ABG Base Excess ABG Hemoglobin Oxyhemoglobin Sodium Potassium Chloride Carbon Dioxide BUN Creatinine Glucose POC Glucose 119 H 145 H 126 H Lactic Acid Calcium Phosphorus Magnesium AST ALT Alkaline Phosphatase Lactate Dehydrogenase Troponin T C-Reactive Protein NT-Pro-B Natriuret Pep Total Protein Albumin LDL Cholesterol Direct Vitamin B12 Urine WBC (Auto) Fluid Glucose Fluid Total Protein Vancomycin Trough Crossmatch 12/19/21 12/20/21 12/20/21 23:30 04:54 04:54 WBC 12.3 H RBC 3.54 L Hgb 10.0 L Hct 29.5 L MCV MCH MCHC RDW 17.8 H Plt Count Eos % (Auto) Eos # (Auto) Seg Neuts % (Manual) 88.0 H Lymphocytes % (Manual) 6.0 L Seg Neutrophils # Seg Neutrophils # Man 10.8 H Lymphocytes # (Manual) 0.7 L Monocytes # (Manual) PT INR APTT D-Dimer ABG pH ABG pO2 ABG HCO3 ABG O2 Saturation ABG Base Excess ABG Hemoglobin Oxyhemoglobin Sodium 131 L Potassium Chloride 96.2 L Carbon Dioxide BUN 36 H Creatinine 0.5 L Glucose 130 H POC Glucose 117 H Lactic Acid Calcium Phosphorus Magnesium AST ALT Alkaline Phosphatase Lactate Dehydrogenase Troponin T C-Reactive Protein NT-Pro-B Natriuret Pep Total Protein Albumin LDL Cholesterol Direct Vitamin B12 Urine WBC (Auto) Fluid Glucose Fluid Total Protein Vancomycin Trough Crossmatch 12/20/21 12/20/21 12/20/21 05:20 11:51 17:30 WBC RBC Hgb Hct MCV MCH MCHC RDW Plt Count Eos % (Auto) Eos # (Auto) Seg Neuts % (Manual) Lymphocytes % (Manual) Seg Neutrophils # Seg Neutrophils # Man Lymphocytes # (Manual) Monocytes # (Manual) PT INR APTT D-Dimer ABG pH ABG pO2 ABG HCO3 ABG O2 Saturation ABG Base Excess ABG Hemoglobin Oxyhemoglobin Sodium Potassium Chloride Carbon Dioxide BUN Creatinine Glucose POC Glucose 126 H 119 H 127 H Lactic Acid Calcium Phosphorus Magnesium AST ALT Alkaline Phosphatase Lactate Dehydrogenase Troponin T C-Reactive Protein NT-Pro-B Natriuret Pep Total Protein Albumin LDL Cholesterol Direct Vitamin B12 Urine WBC (Auto) Fluid Glucose Fluid Total Protein Vancomycin Trough Crossmatch 12/21/21 12/21/21 12/21/21 00:45 04:21 04:21 WBC RBC 3.47 L Hgb 9.4 L Hct 29.2 L MCV MCH 27 L MCHC RDW 18.1 H Plt Count Eos % (Auto) Eos # (Auto) Seg Neuts % (Manual) Lymphocytes % (Manual) Seg Neutrophils # Seg Neutrophils # Man Lymphocytes # (Manual) Monocytes # (Manual) PT INR APTT D-Dimer ABG pH ABG pO2 ABG HCO3 ABG O2 Saturation ABG Base Excess ABG Hemoglobin Oxyhemoglobin Sodium 134 L Potassium Chloride Carbon Dioxide BUN 35 H Creatinine 0.5 L Glucose 122 H POC Glucose 125 H Lactic Acid Calcium 8.2 L Phosphorus Magnesium AST ALT Alkaline Phosphatase Lactate Dehydrogenase Troponin T C-Reactive Protein NT-Pro-B Natriuret Pep Total Protein Albumin LDL Cholesterol Direct Vitamin B12 Urine WBC (Auto) Fluid Glucose Fluid Total Protein Vancomycin Trough Crossmatch 12/21/21 12/21/21 12/21/21 05:38 11:29 16:16 WBC RBC Hgb Hct MCV MCH MCHC RDW Plt Count Eos % (Auto) Eos # (Auto) Seg Neuts % (Manual) Lymphocytes % (Manual) Seg Neutrophils # Seg Neutrophils # Man Lymphocytes # (Manual) Monocytes # (Manual) PT INR APTT D-Dimer ABG pH ABG pO2 ABG HCO3 ABG O2 Saturation ABG Base Excess ABG Hemoglobin Oxyhemoglobin Sodium Potassium Chloride Carbon Dioxide BUN Creatinine Glucose POC Glucose 127 H 121 H 113 H Lactic Acid Calcium Phosphorus Magnesium AST ALT Alkaline Phosphatase Lactate Dehydrogenase Troponin T C-Reactive Protein NT-Pro-B Natriuret Pep Total Protein Albumin LDL Cholesterol Direct Vitamin B12 Urine WBC (Auto) Fluid Glucose Fluid Total Protein Vancomycin Trough Crossmatch 12/22/21 12/22/21 12/23/21 04:58 04:58 06:40 WBC 11.5 H RBC 3.43 L Hgb 9.8 L Hct 28.7 L MCV MCH MCHC RDW 18.5 H 17.9 H Plt Count Eos % (Auto) Eos # (Auto) Seg Neuts % (Manual) Lymphocytes % (Manual) Seg Neutrophils # Seg Neutrophils # Man Lymphocytes # (Manual) Monocytes # (Manual) PT INR APTT D-Dimer ABG pH ABG pO2 ABG HCO3 ABG O2 Saturation ABG Base Excess ABG Hemoglobin Oxyhemoglobin Sodium 130 L Potassium Chloride 97.8 L Carbon Dioxide BUN 31 H Creatinine 0.5 L Glucose 122 H POC Glucose Lactic Acid Calcium 7.9 L Phosphorus Magnesium AST ALT Alkaline Phosphatase Lactate Dehydrogenase Troponin T C-Reactive Protein NT-Pro-B Natriuret Pep Total Protein Albumin LDL Cholesterol Direct Vitamin B12 Urine WBC (Auto) Fluid Glucose Fluid Total Protein Vancomycin Trough Crossmatch 12/23/21 12/23/21 12/24/21 06:40 23:25 04:24 WBC 11.7 H RBC Hgb 9.8 L Hct MCV MCH 26 L MCHC RDW 18.1 H Plt Count Eos % (Auto) Eos # (Auto) Seg Neuts % (Manual) Lymphocytes % (Manual) Seg Neutrophils # Seg Neutrophils # Man Lymphocytes # (Manual) Monocytes # (Manual) PT INR APTT D-Dimer ABG pH ABG pO2 ABG HCO3 ABG O2 Saturation ABG Base Excess ABG Hemoglobin Oxyhemoglobin Sodium 136 L Potassium Chloride Carbon Dioxide BUN 27 H Creatinine 0.4 L Glucose 107 H POC Glucose 110 H Lactic Acid Calcium 8.1 L Phosphorus Magnesium AST ALT Alkaline Phosphatase Lactate Dehydrogenase Troponin T C-Reactive Protein NT-Pro-B Natriuret Pep Total Protein Albumin LDL Cholesterol Direct Vitamin B12 Urine WBC (Auto) Fluid Glucose Fluid Total Protein Vancomycin Trough Crossmatch 12/24/21 12/24/21 12/24/21 04:24 11:08 15:45 WBC RBC Hgb Hct MCV MCH MCHC RDW Plt Count Eos % (Auto) Eos # (Auto) Seg Neuts % (Manual) Lymphocytes % (Manual) Seg Neutrophils # Seg Neutrophils # Man Lymphocytes # (Manual) Monocytes # (Manual) PT INR APTT D-Dimer ABG pH ABG pO2 ABG HCO3 ABG O2 Saturation ABG Base Excess ABG Hemoglobin Oxyhemoglobin Sodium 132 L Potassium Chloride Carbon Dioxide BUN 27 H Creatinine 0.3 L Glucose 108 H POC Glucose 116 H 107 H Lactic Acid Calcium Phosphorus Magnesium AST ALT Alkaline Phosphatase Lactate Dehydrogenase Troponin T C-Reactive Protein NT-Pro-B Natriuret Pep Total Protein Albumin LDL Cholesterol Direct Vitamin B12 Urine WBC (Auto) Fluid Glucose Fluid Total Protein Vancomycin Trough Crossmatch 12/24/21 12/25/21 12/25/21 23:43 05:29 11:48 WBC RBC Hgb Hct MCV MCH MCHC RDW Plt Count Eos % (Auto) Eos # (Auto) Seg Neuts % (Manual) Lymphocytes % (Manual) Seg Neutrophils # Seg Neutrophils # Man Lymphocytes # (Manual) Monocytes # (Manual) PT INR APTT D-Dimer ABG pH ABG pO2 ABG HCO3 ABG O2 Saturation ABG Base Excess ABG Hemoglobin Oxyhemoglobin Sodium Potassium Chloride Carbon Dioxide BUN Creatinine Glucose POC Glucose 123 H 107 H 119 H Lactic Acid Calcium Phosphorus Magnesium AST ALT Alkaline Phosphatase Lactate Dehydrogenase Troponin T C-Reactive Protein NT-Pro-B Natriuret Pep Total Protein Albumin LDL Cholesterol Direct Vitamin B12 Urine WBC (Auto) Fluid Glucose Fluid Total Protein Vancomycin Trough Crossmatch 12/26/21 12/26/21 12/26/21 00:06 05:56 07:51 WBC 11.4 H RBC 3.40 L Hgb 9.3 L Hct 28.3 L MCV MCH 27 L MCHC RDW 18.2 H Plt Count Eos % (Auto) Eos # (Auto) Seg Neuts % (Manual) Lymphocytes % (Manual) Seg Neutrophils # Seg Neutrophils # Man Lymphocytes # (Manual) Monocytes # (Manual) PT INR APTT D-Dimer ABG pH ABG pO2 ABG HCO3 ABG O2 Saturation ABG Base Excess ABG Hemoglobin Oxyhemoglobin Sodium Potassium Chloride Carbon Dioxide BUN Creatinine Glucose POC Glucose 133 H 107 H Lactic Acid Calcium Phosphorus Magnesium AST ALT Alkaline Phosphatase Lactate Dehydrogenase Troponin T C-Reactive Protein NT-Pro-B Natriuret Pep Total Protein Albumin LDL Cholesterol Direct Vitamin B12 Urine WBC (Auto) Fluid Glucose Fluid Total Protein Vancomycin Trough Crossmatch 12/26/21 12/26/2112/26/22 07:51 11:43 17:06 WBC RBC Hgb Hct MCV MCH MCHC RDW Plt Count Eos % (Auto) Eos # (Auto) Seg Neuts % (Manual) Lymphocytes % (Manual) Seg Neutrophils # Seg Neutrophils # Man Lymphocytes # (Manual) Monocytes # (Manual) PT INR APTT D-Dimer ABG pH ABG pO2 ABG HCO3 ABG O2 Saturation ABG Base Excess ABG Hemoglobin Oxyhemoglobin Sodium 136 L Potassium Chloride Carbon Dioxide BUN 25 H Creatinine 0.3 L Glucose 131 H POC Glucose 119 H 128 H Lactic Acid Calcium Phosphorus Magnesium AST ALT Alkaline Phosphatase Lactate Dehydrogenase Troponin T C-Reactive Protein NT-Pro-B Natriuret Pep Total Protein Albumin LDL Cholesterol Direct Vitamin B12 Urine WBC (Auto) Fluid Glucose Fluid Total Protein Vancomycin Trough Crossmatch 12/28/21 12/28/21 12/29/21 09:05 09:05 04:40 WBC RBC 3.19 L Hgb 8.9 L Hct 26.4 L MCV MCH 27 L MCHC RDW 18.4 H 17.9 H Plt Count Eos % (Auto) Eos # (Auto) Seg Neuts % (Manual) Lymphocytes % (Manual) Seg Neutrophils # Seg Neutrophils # Man Lymphocytes # (Manual) Monocytes # (Manual) PT INR APTT D-Dimer ABG pH ABG pO2 ABG HCO3 ABG O2 Saturation ABG Base Excess ABG Hemoglobin Oxyhemoglobin Sodium 135 L Potassium Chloride 97.8 L Carbon Dioxide BUN 18 H Creatinine 0.3 L Glucose POC Glucose Lactic Acid Calcium Phosphorus Magnesium AST ALT Alkaline Phosphatase Lactate Dehydrogenase Troponin T C-Reactive Protein NT-Pro-B Natriuret Pep Total Protein Albumin LDL Cholesterol Direct Vitamin B12 Urine WBC (Auto) Fluid Glucose Fluid Total Protein Vancomycin Trough Crossmatch 12/29/21 12/29/21 12/30/21 04:40 12:47 04:05 WBC RBC 3.29 L Hgb 8.7 L Hct 27.6 L MCV MCH 27 L MCHC RDW 17.6 H Plt Count Eos % (Auto) Eos # (Auto) Seg Neuts % (Manual) Lymphocytes % (Manual) Seg Neutrophils # Seg Neutrophils # Man Lymphocytes # (Manual) Monocytes # (Manual) PT INR APTT D-Dimer ABG pH ABG pO2 ABG HCO3 ABG O2 Saturation ABG Base Excess ABG Hemoglobin Oxyhemoglobin Sodium 136 L Potassium Chloride Carbon Dioxide BUN Creatinine 0.3 L Glucose POC Glucose 67 L Lactic Acid Calcium 8.3 L Phosphorus Magnesium AST ALT Alkaline Phosphatase Lactate Dehydrogenase Troponin T C-Reactive Protein NT-Pro-B Natriuret Pep Total Protein Albumin LDL Cholesterol Direct Vitamin B12 Urine WBC (Auto) Fluid Glucose Fluid Total Protein Vancomycin Trough Crossmatch 12/30/21 12/30/21 12/31/21 04:05 08:30 00:07 WBC RBC Hgb Hct MCV MCH MCHC RDW Plt Count Eos % (Auto) Eos # (Auto) Seg Neuts % (Manual) Lymphocytes % (Manual) Seg Neutrophils # Seg Neutrophils # Man Lymphocytes # (Manual) Monocytes # (Manual) PT INR APTT 41.8 H D-Dimer ABG pH ABG pO2 ABG HCO3 ABG O2 Saturation ABG Base Excess ABG Hemoglobin Oxyhemoglobin Sodium 136 L Potassium 3.5 L Chloride Carbon Dioxide BUN Creatinine 0.4 L Glucose POC Glucose 139 H Lactic Acid Calcium Phosphorus Magnesium 1.50 L AST ALT Alkaline Phosphatase Lactate Dehydrogenase Troponin T C-Reactive Protein NT-Pro-B Natriuret Pep Total Protein Albumin LDL Cholesterol Direct Vitamin B12 Urine WBC (Auto) Fluid Glucose Fluid Total Protein Vancomycin Trough Crossmatch 12/31/21 12/31/21 12/31/21 04:00 04:00 04:52 WBC RBC 3.05 L Hgb 8.5 L Hct 25.5 L MCV MCH MCHC RDW 18.2 H Plt Count Eos % (Auto) Eos # (Auto) Seg Neuts % (Manual) Lymphocytes % (Manual) Seg Neutrophils # Seg Neutrophils # Man Lymphocytes # (Manual) Monocytes # (Manual) PT INR APTT D-Dimer ABG pH ABG pO2 ABG HCO3 ABG O2 Saturation ABG Base Excess ABG Hemoglobin Oxyhemoglobin Sodium Potassium Chloride Carbon Dioxide BUN 19 H Creatinine 0.4 L Glucose 116 H POC Glucose 121 H Lactic Acid Calcium Phosphorus Magnesium AST ALT Alkaline Phosphatase Lactate Dehydrogenase Troponin T C-Reactive Protein NT-Pro-B Natriuret Pep Total Protein Albumin LDL Cholesterol Direct Vitamin B12 Urine WBC (Auto) Fluid Glucose Fluid Total Protein Vancomycin Trough Crossmatch 12/31/21 12/31/21 01/01/22 11:23 17:42 04:31 WBC RBC 2.83 L Hgb 7.7 L Hct 23.2 L MCV MCH 27 L MCHC RDW 18.3 H Plt Count Eos % (Auto) Eos # (Auto) Seg Neuts % (Manual) Lymphocytes % (Manual) Seg Neutrophils # Seg Neutrophils # Man Lymphocytes # (Manual) Monocytes # (Manual) PT INR APTT D-Dimer ABG pH ABG pO2 ABG HCO3 ABG O2 Saturation ABG Base Excess ABG Hemoglobin Oxyhemoglobin Sodium Potassium Chloride Carbon Dioxide BUN Creatinine Glucose POC Glucose 116 H 107 H Lactic Acid Calcium Phosphorus Magnesium AST ALT Alkaline Phosphatase Lactate Dehydrogenase Troponin T C-Reactive Protein NT-Pro-B Natriuret Pep Total Protein Albumin LDL Cholesterol Direct Vitamin B12 Urine WBC (Auto) Fluid Glucose Fluid Total Protein Vancomycin Trough Crossmatch 01/01/22 01/01/22 01/01/22 04:31 05:24 11:25 WBC RBC Hgb Hct MCV MCH MCHC RDW Plt Count Eos % (Auto) Eos # (Auto) Seg Neuts % (Manual) Lymphocytes % (Manual) Seg Neutrophils # Seg Neutrophils # Man Lymphocytes # (Manual) Monocytes # (Manual) PT INR APTT D-Dimer ABG pH ABG pO2 ABG HCO3 ABG O2 Saturation ABG Base Excess ABG Hemoglobin Oxyhemoglobin Sodium 135 L Potassium Chloride 97.7 L Carbon Dioxide BUN 21 H Creatinine 0.5 L Glucose 127 H POC Glucose 124 H 140 H Lactic Acid Calcium 8.0 L Phosphorus Magnesium AST ALT Alkaline Phosphatase Lactate Dehydrogenase Troponin T C-Reactive Protein NT-Pro-B Natriuret Pep Total Protein Albumin LDL Cholesterol Direct Vitamin B12 Urine WBC (Auto) Fluid Glucose Fluid Total Protein Vancomycin Trough Crossmatch 01/01/22 01/01/22 01/02/22 18:11 23:26 04:01 WBC RBC Hgb Hct MCV MCH MCHC RDW Plt Count Eos % (Auto) Eos # (Auto) Seg Neuts % (Manual) Lymphocytes % (Manual) Seg Neutrophils # Seg Neutrophils # Man Lymphocytes # (Manual) Monocytes # (Manual) PT INR APTT D-Dimer ABG pH ABG pO2 ABG HCO3 ABG O2 Saturation ABG Base Excess ABG Hemoglobin Oxyhemoglobin Sodium 131 L Potassium 3.5 L Chloride 94.8 L Carbon Dioxide BUN 27 H Creatinine Glucose 121 H POC Glucose 144 H 121 H Lactic Acid Calcium Phosphorus Magnesium AST ALT Alkaline Phosphatase Lactate Dehydrogenase Troponin T C-Reactive Protein NT-Pro-B Natriuret Pep Total Protein Albumin LDL Cholesterol Direct Vitamin B12 Urine WBC (Auto) Fluid Glucose Fluid Total Protein Vancomycin Trough Crossmatch 01/02/22 01/02/22 01/02/22 04:01 05:30 11:10 WBC RBC 2.57 L Hgb 7.1 L Hct 21.5 L MCV MCH MCHC RDW 18.1 H Plt Count Eos % (Auto) Eos # (Auto) Seg Neuts % (Manual) Lymphocytes % (Manual) Seg Neutrophils # Seg Neutrophils # Man Lymphocytes # (Manual) Monocytes # (Manual) PT INR APTT D-Dimer ABG pH ABG pO2 ABG HCO3 ABG O2 Saturation ABG Base Excess ABG Hemoglobin Oxyhemoglobin Sodium Potassium Chloride Carbon Dioxide BUN Creatinine Glucose POC Glucose 124 H 117 H Lactic Acid Calcium Phosphorus Magnesium AST ALT Alkaline Phosphatase Lactate Dehydrogenase Troponin T C-Reactive Protein NT-Pro-B Natriuret Pep Total Protein Albumin LDL Cholesterol Direct Vitamin B12 Urine WBC (Auto) Fluid Glucose Fluid Total Protein Vancomycin Trough Crossmatch 01/02/22 01/02/22 01/02/22 16:08 17:30 23:26 WBC RBC Hgb Hct MCV MCH MCHC RDW Plt Count Eos % (Auto) Eos # (Auto) Seg Neuts % (Manual) Lymphocytes % (Manual) Seg Neutrophils # Seg Neutrophils # Man Lymphocytes # (Manual) Monocytes # (Manual) PT INR APTT D-Dimer ABG pH ABG pO2 ABG HCO3 ABG O2 Saturation ABG Base Excess ABG Hemoglobin Oxyhemoglobin Sodium Potassium Chloride Carbon Dioxide BUN Creatinine Glucose POC Glucose 130 H 114 H Lactic Acid Calcium Phosphorus Magnesium AST ALT Alkaline Phosphatase Lactate Dehydrogenase Troponin T C-Reactive Protein NT-Pro-B Natriuret Pep Total Protein Albumin LDL Cholesterol Direct Vitamin B12 Urine WBC (Auto) Fluid Glucose Fluid Total Protein Vancomycin Trough 22.8 H Crossmatch 01/03/22 01/03/22 01/03/22 04:53 04:53 06:23 WBC RBC 2.82 L Hgb 7.7 L Hct 23.4 L MCV MCH 27 L MCHC RDW 18.0 H Plt Count Eos % (Auto) Eos # (Auto) Seg Neuts % (Manual) Lymphocytes % (Manual) Seg Neutrophils # Seg Neutrophils # Man Lymphocytes # (Manual) Monocytes # (Manual) PT INR APTT D-Dimer ABG pH ABG pO2 ABG HCO3 ABG O2 Saturation ABG Base Excess ABG Hemoglobin Oxyhemoglobin Sodium 133 L Potassium Chloride 96.2 L Carbon Dioxide BUN 30 H Creatinine Glucose 107 H POC Glucose 122 H Lactic Acid Calcium Phosphorus Magnesium AST ALT Alkaline Phosphatase Lactate Dehydrogenase Troponin T C-Reactive Protein NT-Pro-B Natriuret Pep Total Protein Albumin LDL Cholesterol Direct Vitamin B12 Urine WBC (Auto) Fluid Glucose Fluid Total Protein Vancomycin Trough Crossmatch 01/03/22 01/04/22 01/04/22 17:35 04:00 12:32 WBC RBC Hgb Hct MCV MCH MCHC RDW Plt Count Eos % (Auto) Eos # (Auto) Seg Neuts % (Manual) Lymphocytes % (Manual) Seg Neutrophils # Seg Neutrophils # Man Lymphocytes # (Manual) Monocytes # (Manual) PT INR APTT D-Dimer ABG pH ABG pO2 ABG HCO3 ABG O2 Saturation ABG Base Excess ABG Hemoglobin Oxyhemoglobin Sodium 132 L Potassium Chloride 92.8 L Carbon Dioxide BUN 30 H Creatinine Glucose 115 H POC Glucose 107 H 111 H Lactic Acid Calcium Phosphorus Magnesium 1.60 L AST ALT Alkaline Phosphatase Lactate Dehydrogenase Troponin T C-Reactive Protein NT-Pro-B Natriuret Pep Total Protein Albumin LDL Cholesterol Direct Vitamin B12 Urine WBC (Auto) Fluid Glucose Fluid Total Protein Vancomycin Trough Crossmatch 01/04/22 01/05/22 01/05/22 16:45 04:30 04:30 WBC RBC 3.11 L Hgb 8.4 L Hct 25.5 L MCV MCH 27 L MCHC RDW 17.6 H Plt Count Eos % (Auto) Eos # (Auto) Seg Neuts % (Manual) Lymphocytes % (Manual) Seg Neutrophils # Seg Neutrophils # Man Lymphocytes # (Manual) Monocytes # (Manual) PT INR APTT D-Dimer ABG pH ABG pO2 ABG HCO3 ABG O2 Saturation ABG Base Excess ABG Hemoglobin Oxyhemoglobin Sodium 135 L Potassium Chloride 93.6 L Carbon Dioxide BUN 29 H Creatinine Glucose POC Glucose 111 H Lactic Acid Calcium Phosphorus Magnesium AST ALT Alkaline Phosphatase Lactate Dehydrogenase Troponin T C-Reactive Protein NT-Pro-B Natriuret Pep Total Protein Albumin LDL Cholesterol Direct Vitamin B12 Urine WBC (Auto) Fluid Glucose Fluid Total Protein Vancomycin Trough Crossmatch 01/05/22 01/05/22 01/06/22 17:04 23:27 04:06 WBC RBC 2.89 L Hgb 7.7 L Hct 23.8 L MCV MCH 27 L MCHC RDW 18.0 H Plt Count Eos % (Auto) Eos # (Auto) Seg Neuts % (Manual) Lymphocytes % (Manual) Seg Neutrophils # Seg Neutrophils # Man Lymphocytes # (Manual) Monocytes # (Manual) PT INR APTT D-Dimer ABG pH ABG pO2 ABG HCO3 ABG O2 Saturation ABG Base Excess ABG Hemoglobin Oxyhemoglobin Sodium Potassium Chloride Carbon Dioxide BUN Creatinine Glucose POC Glucose 67 L 110 H Lactic Acid Calcium Phosphorus Magnesium AST ALT Alkaline Phosphatase Lactate Dehydrogenase Troponin T C-Reactive Protein NT-Pro-B Natriuret Pep Total Protein Albumin LDL Cholesterol Direct Vitamin B12 Urine WBC (Auto) Fluid Glucose Fluid Total Protein Vancomycin Trough Crossmatch 01/06/22 01/06/22 01/06/22 04:06 04:06 13:40 WBC RBC Hgb Hct MCV MCH MCHC RDW Plt Count Eos % (Auto) Eos # (Auto) Seg Neuts % (Manual) Lymphocytes % (Manual) Seg Neutrophils # Seg Neutrophils # Man Lymphocytes # (Manual) Monocytes # (Manual) PT 16.9 H INR 1.23 H APTT D-Dimer ABG pH ABG pO2 ABG HCO3 ABG O2 Saturation ABG Base Excess ABG Hemoglobin Oxyhemoglobin Sodium 132 L Potassium Chloride 92.3 L Carbon Dioxide BUN 26 H Creatinine Glucose 111 H POC Glucose Lactic Acid Calcium Phosphorus Magnesium AST ALT Alkaline Phosphatase Lactate Dehydrogenase Troponin T C-Reactive Protein NT-Pro-B Natriuret Pep Total Protein Albumin LDL Cholesterol Direct Vitamin B12 Urine WBC (Auto) Fluid Glucose 96 H Fluid Total Protein < 3.0 L Vancomycin Trough Crossmatch 01/06/22 01/07/22 01/07/22 23:41 05:20 11:30 WBC RBC Hgb Hct MCV MCH MCHC RDW Plt Count Eos % (Auto) Eos # (Auto) Seg Neuts % (Manual) Lymphocytes % (Manual) Seg Neutrophils # Seg Neutrophils # Man Lymphocytes # (Manual) Monocytes # (Manual) PT INR APTT D-Dimer ABG pH ABG pO2 ABG HCO3 ABG O2 Saturation ABG Base Excess ABG Hemoglobin Oxyhemoglobin Sodium Potassium Chloride Carbon Dioxide BUN Creatinine Glucose POC Glucose 120 H 111 H 113 H Lactic Acid Calcium Phosphorus Magnesium AST ALT Alkaline Phosphatase Lactate Dehydrogenase Troponin T C-Reactive Protein NT-Pro-B Natriuret Pep Total Protein Albumin LDL Cholesterol Direct Vitamin B12 Urine WBC (Auto) Fluid Glucose Fluid Total Protein Vancomycin Trough Crossmatch 01/07/22 01/07/22 01/08/22 17:00 23:41 11:26 WBC RBC Hgb Hct MCV MCH MCHC RDW Plt Count Eos % (Auto) Eos # (Auto) Seg Neuts % (Manual) Lymphocytes % (Manual) Seg Neutrophils # Seg Neutrophils # Man Lymphocytes # (Manual) Monocytes # (Manual) PT INR APTT D-Dimer ABG pH ABG pO2 ABG HCO3 ABG O2 Saturation ABG Base Excess ABG Hemoglobin Oxyhemoglobin Sodium Potassium Chloride Carbon Dioxide BUN Creatinine Glucose POC Glucose 121 H 110 H 129 H Lactic Acid Calcium Phosphorus Magnesium AST ALT Alkaline Phosphatase Lactate Dehydrogenase Troponin T C-Reactive Protein NT-Pro-B Natriuret Pep Total Protein Albumin LDL Cholesterol Direct Vitamin B12 Urine WBC (Auto) Fluid Glucose Fluid Total Protein Vancomycin Trough Crossmatch 01/08/22 01/09/22 01/10/22 16:23 18:13 00:27 WBC RBC Hgb Hct MCV MCH MCHC RDW Plt Count Eos % (Auto) Eos # (Auto) Seg Neuts % (Manual) Lymphocytes % (Manual) Seg Neutrophils # Seg Neutrophils # Man Lymphocytes # (Manual) Monocytes # (Manual) PT INR APTT D-Dimer ABG pH ABG pO2 ABG HCO3 ABG O2 Saturation ABG Base Excess ABG Hemoglobin Oxyhemoglobin Sodium Potassium Chloride Carbon Dioxide BUN Creatinine Glucose POC Glucose 118 H 118 H 111 H Lactic Acid Calcium Phosphorus Magnesium AST ALT Alkaline Phosphatase Lactate Dehydrogenase Troponin T C-Reactive Protein NT-Pro-B Natriuret Pep Total Protein Albumin LDL Cholesterol Direct Vitamin B12 Urine WBC (Auto) Fluid Glucose Fluid Total Protein Vancomycin Trough Crossmatch 01/10/22 01/10/22 01/11/22 04:00 05:47 05:10 WBC RBC Hgb Hct MCV MCH MCHC RDW Plt Count Eos % (Auto) Eos # (Auto) Seg Neuts % (Manual) Lymphocytes % (Manual) Seg Neutrophils # Seg Neutrophils # Man Lymphocytes # (Manual) Monocytes # (Manual) PT INR APTT D-Dimer ABG pH ABG pO2 ABG HCO3 ABG O2 Saturation ABG Base Excess ABG Hemoglobin Oxyhemoglobin Sodium 133 L Potassium Chloride 92.6 L Carbon Dioxide 31 H BUN 29 H Creatinine 0.5 L Glucose 115 H POC Glucose 106 H 118 H Lactic Acid Calcium Phosphorus Magnesium AST ALT Alkaline Phosphatase Lactate Dehydrogenase Troponin T C-Reactive Protein NT-Pro-B Natriuret Pep Total Protein Albumin LDL Cholesterol Direct Vitamin B12 Urine WBC (Auto) Fluid Glucose Fluid Total Protein Vancomycin Trough Crossmatch 01/11/22 01/11/22 01/11/22 11:14 17:14 23:52 WBC RBC Hgb Hct MCV MCH MCHC RDW Plt Count Eos % (Auto) Eos # (Auto) Seg Neuts % (Manual) Lymphocytes % (Manual) Seg Neutrophils # Seg Neutrophils # Man Lymphocytes # (Manual) Monocytes # (Manual) PT INR APTT D-Dimer ABG pH ABG pO2 ABG HCO3 ABG O2 Saturation ABG Base Excess ABG Hemoglobin Oxyhemoglobin Sodium Potassium Chloride Carbon Dioxide BUN Creatinine Glucose POC Glucose 136 H 117 H 110 H Lactic Acid Calcium Phosphorus Magnesium AST ALT Alkaline Phosphatase Lactate Dehydrogenase Troponin T C-Reactive Protein NT-Pro-B Natriuret Pep Total Protein Albumin LDL Cholesterol Direct Vitamin B12 Urine WBC (Auto) Fluid Glucose Fluid Total Protein Vancomycin Trough Crossmatch 01/12/22 01/13/22 01/13/22 05:39 11:15 17:21 WBC RBC Hgb Hct MCV MCH MCHC RDW Plt Count Eos % (Auto) Eos # (Auto) Seg Neuts % (Manual) Lymphocytes % (Manual) Seg Neutrophils # Seg Neutrophils # Man Lymphocytes # (Manual) Monocytes # (Manual) PT INR APTT D-Dimer ABG pH ABG pO2 ABG HCO3 ABG O2 Saturation ABG Base Excess ABG Hemoglobin Oxyhemoglobin Sodium Potassium Chloride Carbon Dioxide BUN Creatinine Glucose POC Glucose 110 H 113 H 121 H Lactic Acid Calcium Phosphorus Magnesium AST ALT Alkaline Phosphatase Lactate Dehydrogenase Troponin T C-Reactive Protein NT-Pro-B Natriuret Pep Total Protein Albumin LDL Cholesterol Direct Vitamin B12 Urine WBC (Auto) Fluid Glucose Fluid Total Protein Vancomycin Trough Crossmatch 01/14/22 01/14/22 01/15/22 05:33 11:28 00:13 WBC RBC Hgb Hct MCV MCH MCHC RDW Plt Count Eos % (Auto) Eos # (Auto) Seg Neuts % (Manual) Lymphocytes % (Manual) Seg Neutrophils # Seg Neutrophils # Man Lymphocytes # (Manual) Monocytes # (Manual) PT INR APTT D-Dimer ABG pH ABG pO2 ABG HCO3 ABG O2 Saturation ABG Base Excess ABG Hemoglobin Oxyhemoglobin Sodium Potassium Chloride Carbon Dioxide BUN Creatinine Glucose POC Glucose 136 H 117 H 109 H Lactic Acid Calcium Phosphorus Magnesium AST ALT Alkaline Phosphatase Lactate Dehydrogenase Troponin T C-Reactive Protein NT-Pro-B Natriuret Pep Total Protein Albumin LDL Cholesterol Direct Vitamin B12 Urine WBC (Auto) Fluid Glucose Fluid Total Protein Vancomycin Trough Crossmatch 01/15/22 01/15/22 01/15/22 05:24 11:38 14:36 WBC RBC 3.11 L Hgb 8.4 L Hct 25.7 L MCV MCH 27 L MCHC RDW 17.2 H Plt Count Eos % (Auto) Eos # (Auto) Seg Neuts % (Manual) 82.0 H Lymphocytes % (Manual) 11.0 L Seg Neutrophils # Seg Neutrophils # Man 8.8 H Lymphocytes # (Manual) Monocytes # (Manual) PT INR APTT D-Dimer ABG pH ABG pO2 ABG HCO3 ABG O2 Saturation ABG Base Excess ABG Hemoglobin Oxyhemoglobin Sodium Potassium Chloride Carbon Dioxide BUN Creatinine Glucose POC Glucose 117 H 107 H Lactic Acid Calcium Phosphorus Magnesium AST ALT Alkaline Phosphatase Lactate Dehydrogenase Troponin T C-Reactive Protein NT-Pro-B Natriuret Pep Total Protein Albumin LDL Cholesterol Direct Vitamin B12 Urine WBC (Auto) Fluid Glucose Fluid Total Protein Vancomycin Trough Crossmatch 01/15/22 01/15/22 01/15/22 17:05 21:07 Unknown WBC RBC 2.97 L Hgb 8.0 L Hct 24.3 L MCV MCH 27 L MCHC RDW 17.2 H Plt Count Eos % (Auto) Eos # (Auto) Seg Neuts % (Manual) Lymphocytes % (Manual) Seg Neutrophils # Seg Neutrophils # Man Lymphocytes # (Manual) Monocytes # (Manual) PT INR APTT D-Dimer ABG pH ABG pO2 ABG HCO3 ABG O2 Saturation ABG Base Excess ABG Hemoglobin Oxyhemoglobin Sodium Potassium Chloride Carbon Dioxide BUN Creatinine Glucose POC Glucose 108 H Lactic Acid Calcium Phosphorus Magnesium AST ALT Alkaline Phosphatase Lactate Dehydrogenase Troponin T 0.088 H C-Reactive Protein NT-Pro-B Natriuret Pep Total Protein Albumin LDL Cholesterol Direct 44 L Vitamin B12 Urine WBC (Auto) Fluid Glucose Fluid Total Protein Vancomycin Trough Crossmatch 01/15/22 01/15/22 01/16/22 Unknown Unknown 05:21 WBC RBC Hgb Hct MCV MCH MCHC RDW Plt Count Eos % (Auto) Eos # (Auto) Seg Neuts % (Manual) Lymphocytes % (Manual) Seg Neutrophils # Seg Neutrophils # Man Lymphocytes # (Manual) Monocytes # (Manual) PT INR APTT D-Dimer ABG pH ABG pO2 ABG HCO3 ABG O2 Saturation ABG Base Excess ABG Hemoglobin Oxyhemoglobin Sodium 131 L 134 L 134 L Potassium 3.4 L Chloride 93.1 L 93.9 L 95.4 L Carbon Dioxide BUN 27 H 26 H 24 H Creatinine Glucose 110 H 168 H POC Glucose Lactic Acid Calcium 8.3 L 8.1 L Phosphorus Magnesium AST ALT Alkaline Phosphatase Lactate Dehydrogenase Troponin T 0.078 H C-Reactive Protein NT-Pro-B Natriuret Pep Total Protein Albumin LDL Cholesterol Direct Vitamin B12 Urine WBC (Auto) Fluid Glucose Fluid Total Protein Vancomycin Trough Crossmatch 01/16/22 01/16/22 01/17/22 12:59 23:22 05:20 WBC RBC Hgb Hct MCV MCH MCHC RDW Plt Count Eos % (Auto) Eos # (Auto) Seg Neuts % (Manual) Lymphocytes % (Manual) Seg Neutrophils # Seg Neutrophils # Man Lymphocytes # (Manual) Monocytes # (Manual) PT INR APTT D-Dimer ABG pH ABG pO2 ABG HCO3 ABG O2 Saturation ABG Base Excess ABG Hemoglobin Oxyhemoglobin Sodium Potassium Chloride Carbon Dioxide BUN Creatinine Glucose POC Glucose 159 H 113 H 111 H Lactic Acid Calcium Phosphorus Magnesium AST ALT Alkaline Phosphatase Lactate Dehydrogenase Troponin T C-Reactive Protein NT-Pro-B Natriuret Pep Total Protein Albumin LDL Cholesterol Direct Vitamin B12 Urine WBC (Auto) Fluid Glucose Fluid Total Protein Vancomycin Trough Crossmatch 01/17/22 01/17/22 01/18/22 14:24 17:14 05:39 WBC RBC Hgb Hct MCV MCH MCHC RDW Plt Count Eos % (Auto) Eos # (Auto) Seg Neuts % (Manual) Lymphocytes % (Manual) Seg Neutrophils # Seg Neutrophils # Man Lymphocytes # (Manual) Monocytes # (Manual) PT INR APTT D-Dimer ABG pH ABG pO2 55.0 L ABG HCO3 29.5 H ABG O2 Saturation 87.8 L ABG Base Excess 4.5 H ABG Hemoglobin 9.3 L Oxyhemoglobin 86.1 L Sodium Potassium Chloride Carbon Dioxide BUN Creatinine Glucose POC Glucose 126 H 108 H Lactic Acid Calcium Phosphorus Magnesium AST ALT Alkaline Phosphatase Lactate Dehydrogenase Troponin T C-Reactive Protein NT-Pro-B Natriuret Pep Total Protein Albumin LDL Cholesterol Direct Vitamin B12 Urine WBC (Auto) Fluid Glucose Fluid Total Protein Vancomycin Trough Crossmatch 01/18/22 01/18/22 01/19/22 11:53 12:50 00:04 WBC RBC Hgb Hct MCV MCH MCHC RDW Plt Count Eos % (Auto) Eos # (Auto) Seg Neuts % (Manual) Lymphocytes % (Manual) Seg Neutrophils # Seg Neutrophils # Man Lymphocytes # (Manual) Monocytes # (Manual) PT INR APTT D-Dimer ABG pH ABG pO2 112.3 H ABG HCO3 30.9 H ABG O2 Saturation ABG Base Excess 5.8 H ABG Hemoglobin 8.8 L Oxyhemoglobin Sodium Potassium Chloride Carbon Dioxide BUN Creatinine Glucose POC Glucose 113 H 115 H Lactic Acid Calcium Phosphorus Magnesium AST ALT Alkaline Phosphatase Lactate Dehydrogenase Troponin T C-Reactive Protein NT-Pro-B Natriuret Pep Total Protein Albumin LDL Cholesterol Direct Vitamin B12 Urine WBC (Auto) Fluid Glucose Fluid Total Protein Vancomycin Trough Crossmatch 01/19/22 01/19/22 01/19/22 04:50 04:50 11:51 WBC RBC 3.14 L Hgb 8.4 L Hct 26.0 L MCV MCH 27 L MCHC RDW 18.2 H Plt Count Eos % (Auto) Eos # (Auto) Seg Neuts % (Manual) Lymphocytes % (Manual) Seg Neutrophils # Seg Neutrophils # Man Lymphocytes # (Manual) Monocytes # (Manual) PT INR APTT D-Dimer ABG pH ABG pO2 ABG HCO3 ABG O2 Saturation ABG Base Excess ABG Hemoglobin Oxyhemoglobin Sodium 134 L Potassium Chloride 95.4 L Carbon Dioxide BUN 28 H Creatinine Glucose POC Glucose 111 H Lactic Acid Calcium Phosphorus Magnesium AST ALT Alkaline Phosphatase Lactate Dehydrogenase Troponin T C-Reactive Protein NT-Pro-B Natriuret Pep Total Protein Albumin LDL Cholesterol Direct Vitamin B12 Urine WBC (Auto) Fluid Glucose Fluid Total Protein Vancomycin Trough Crossmatch 01/19/22 01/20/22 01/21/22 20:45 11:43 23:32 WBC RBC Hgb Hct MCV MCH MCHC RDW Plt Count Eos % (Auto) Eos # (Auto) Seg Neuts % (Manual) Lymphocytes % (Manual) Seg Neutrophils # Seg Neutrophils # Man Lymphocytes # (Manual) Monocytes # (Manual) PT INR APTT D-Dimer ABG pH ABG pO2 95.2 H ABG HCO3 29.8 H ABG O2 Saturation ABG Base Excess 4.3 H ABG Hemoglobin 8.0 L Oxyhemoglobin Sodium Potassium Chloride Carbon Dioxide BUN Creatinine Glucose POC Glucose 118 H 113 H Lactic Acid Calcium Phosphorus Magnesium AST ALT Alkaline Phosphatase Lactate Dehydrogenase Troponin T C-Reactive Protein NT-Pro-B Natriuret Pep Total Protein Albumin LDL Cholesterol Direct Vitamin B12 Urine WBC (Auto) Fluid Glucose Fluid Total Protein Vancomycin Trough Crossmatch 01/22/22 01/22/22 01/23/22 11:12 17:54 09:36 WBC RBC Hgb Hct MCV MCH MCHC RDW Plt Count Eos % (Auto) Eos # (Auto) Seg Neuts % (Manual) Lymphocytes % (Manual) Seg Neutrophils # Seg Neutrophils # Man Lymphocytes # (Manual) Monocytes # (Manual) PT INR APTT D-Dimer ABG pH ABG pO2 ABG HCO3 ABG O2 Saturation ABG Base Excess ABG Hemoglobin Oxyhemoglobin Sodium Potassium Chloride Carbon Dioxide BUN Creatinine Glucose POC Glucose 110 H 115 H Lactic Acid Calcium Phosphorus Magnesium AST ALT Alkaline Phosphatase Lactate Dehydrogenase Troponin T C-Reactive Protein NT-Pro-B Natriuret Pep Total Protein Albumin LDL Cholesterol Direct Vitamin B12 Urine WBC (Auto) 16.0 H Fluid Glucose Fluid Total Protein Vancomycin Trough Crossmatch 01/23/22 01/23/22 01/24/22 11:49 11:50 05:37 WBC RBC Hgb Hct MCV MCH MCHC RDW Plt Count Eos % (Auto) Eos # (Auto) Seg Neuts % (Manual) Lymphocytes % (Manual) Seg Neutrophils # Seg Neutrophils # Man Lymphocytes # (Manual) Monocytes # (Manual) PT INR APTT D-Dimer ABG pH 7.310 L ABG pO2 43.9 L ABG HCO3 28.0 H ABG O2 Saturation 70.8 L ABG Base Excess ABG Hemoglobin 9.3 L Oxyhemoglobin 69.2 L Sodium Potassium Chloride Carbon Dioxide BUN Creatinine Glucose POC Glucose 194 H 118 H Lactic Acid Calcium Phosphorus Magnesium AST ALT Alkaline Phosphatase Lactate Dehydrogenase Troponin T C-Reactive Protein NT-Pro-B Natriuret Pep Total Protein Albumin LDL Cholesterol Direct Vitamin B12 Urine WBC (Auto) Fluid Glucose Fluid Total Protein Vancomycin Trough Crossmatch 01/24/22 01/25/22 01/25/22 11:56 12:20 13:17 WBC RBC Hgb Hct MCV MCH MCHC RDW Plt Count Eos % (Auto) Eos # (Auto) Seg Neuts % (Manual) Lymphocytes % (Manual) Seg Neutrophils # Seg Neutrophils # Man Lymphocytes # (Manual) Monocytes # (Manual) PT INR APTT D-Dimer ABG pH 7.488 H ABG pO2 58.9 L ABG HCO3 28.3 H ABG O2 Saturation 94.9 L ABG Base Excess 4.7 H ABG Hemoglobin 8.7 L Oxyhemoglobin 92.7 L Sodium Potassium Chloride Carbon Dioxide BUN Creatinine Glucose POC Glucose 119 H 126 H Lactic Acid Calcium Phosphorus Magnesium AST ALT Alkaline Phosphatase Lactate Dehydrogenase Troponin T C-Reactive Protein NT-Pro-B Natriuret Pep Total Protein Albumin LDL Cholesterol Direct Vitamin B12 Urine WBC (Auto) Fluid Glucose Fluid Total Protein Vancomycin Trough Crossmatch 01/26/22 01/26/22 01/26/22 05:59 10:16 10:16 WBC 12.7 H RBC Hgb 9.9 L Hct MCV MCH 27 L MCHC RDW 18.3 H Plt Count Eos % (Auto) 4.5 H Eos # (Auto) 0.6 H Seg Neuts % (Manual) Lymphocytes % (Manual) Seg Neutrophils # 8.2 H Seg Neutrophils # Man Lymphocytes # (Manual) Monocytes # (Manual) PT INR APTT D-Dimer ABG pH ABG pO2 ABG HCO3 ABG O2 Saturation ABG Base Excess ABG Hemoglobin Oxyhemoglobin Sodium Potassium Chloride 96.6 L Carbon Dioxide BUN 29 H Creatinine Glucose 140 H POC Glucose 130 H Lactic Acid Calcium Phosphorus Magnesium AST ALT Alkaline Phosphatase Lactate Dehydrogenase Troponin T C-Reactive Protein NT-Pro-B Natriuret Pep Total Protein Albumin LDL Cholesterol Direct Vitamin B12 Urine WBC (Auto) Fluid Glucose Fluid Total Protein Vancomycin Trough Crossmatch 01/26/22 01/27/22 01/27/22 11:49 00:22 12:48 WBC RBC Hgb Hct MCV MCH MCHC RDW Plt Count Eos % (Auto) Eos # (Auto) Seg Neuts % (Manual) Lymphocytes % (Manual) Seg Neutrophils # Seg Neutrophils # Man Lymphocytes # (Manual) Monocytes # (Manual) PT INR APTT D-Dimer ABG pH ABG pO2 ABG HCO3 ABG O2 Saturation ABG Base Excess ABG Hemoglobin Oxyhemoglobin Sodium Potassium Chloride Carbon Dioxide BUN Creatinine Glucose POC Glucose 161 H 107 H 131 H Lactic Acid Calcium Phosphorus Magnesium AST ALT Alkaline Phosphatase Lactate Dehydrogenase Troponin T C-Reactive Protein NT-Pro-B Natriuret Pep Total Protein Albumin LDL Cholesterol Direct Vitamin B12 Urine WBC (Auto) Fluid Glucose Fluid Total Protein Vancomycin Trough Crossmatch 01/27/22 01/29/22 01/29/22 23:08 04:40 05:52 WBC RBC Hgb Hct MCV MCH MCHC RDW Plt Count Eos % (Auto) Eos # (Auto) Seg Neuts % (Manual) Lymphocytes % (Manual) Seg Neutrophils # Seg Neutrophils # Man Lymphocytes # (Manual) Monocytes # (Manual) PT INR APTT D-Dimer ABG pH ABG pO2 ABG HCO3 ABG O2 Saturation ABG Base Excess ABG Hemoglobin Oxyhemoglobin Sodium Potassium Chloride 95.9 L Carbon Dioxide BUN 36 H Creatinine Glucose 127 H POC Glucose 109 H 108 H Lactic Acid Calcium Phosphorus Magnesium AST ALT Alkaline Phosphatase Lactate Dehydrogenase Troponin T C-Reactive Protein NT-Pro-B Natriuret Pep Total Protein Albumin LDL Cholesterol Direct Vitamin B12 Urine WBC (Auto) Fluid Glucose Fluid Total Protein Vancomycin Trough Crossmatch 01/29/22 01/30/22 01/30/22 11:26 05:29 12:44 WBC RBC Hgb Hct MCV MCH MCHC RDW Plt Count Eos % (Auto) Eos # (Auto) Seg Neuts % (Manual) Lymphocytes % (Manual) Seg Neutrophils # Seg Neutrophils # Man Lymphocytes # (Manual) Monocytes # (Manual) PT INR APTT D-Dimer ABG pH ABG pO2 ABG HCO3 ABG O2 Saturation ABG Base Excess ABG Hemoglobin Oxyhemoglobin Sodium Potassium Chloride Carbon Dioxide BUN Creatinine Glucose POC Glucose 119 H 109 H 108 H Lactic Acid Calcium Phosphorus Magnesium AST ALT Alkaline Phosphatase Lactate Dehydrogenase Troponin T C-Reactive Protein NT-Pro-B Natriuret Pep Total Protein Albumin LDL Cholesterol Direct Vitamin B12 Urine WBC (Auto) Fluid Glucose Fluid Total Protein Vancomycin Trough Crossmatch 01/30/22 01/31/22 01/31/22 23:34 04:08 05:12 WBC RBC Hgb Hct MCV MCH MCHC RDW Plt Count Eos % (Auto) Eos # (Auto) Seg Neuts % (Manual) Lymphocytes % (Manual) Seg Neutrophils # Seg Neutrophils # Man Lymphocytes # (Manual) Monocytes # (Manual) PT INR APTT D-Dimer ABG pH ABG pO2 ABG HCO3 ABG O2 Saturation ABG Base Excess ABG Hemoglobin Oxyhemoglobin Sodium 136 L Potassium Chloride 97.6 L Carbon Dioxide BUN 41 H Creatinine Glucose 120 H POC Glucose 109 H 111 H Lactic Acid Calcium Phosphorus Magnesium AST ALT Alkaline Phosphatase Lactate Dehydrogenase Troponin T C-Reactive Protein NT-Pro-B Natriuret Pep Total Protein Albumin LDL Cholesterol Direct Vitamin B12 Urine WBC (Auto) Fluid Glucose Fluid Total Protein Vancomycin Trough Crossmatch 02/01/22 02/02/22 02/03/22 04:00 08:36 04:00 WBC RBC 3.20 L Hgb 8.9 L Hct 26.5 L MCV MCH MCHC RDW 18.6 H Plt Count Eos % (Auto) Eos # (Auto) Seg Neuts % (Manual) Lymphocytes % (Manual) Seg Neutrophils # Seg Neutrophils # Man Lymphocytes # (Manual) Monocytes # (Manual) PT INR APTT D-Dimer ABG pH ABG pO2 ABG HCO3 ABG O2 Saturation ABG Base Excess ABG Hemoglobin Oxyhemoglobin Sodium 136 L 135 L Potassium Chloride 94.1 L 94.6 L Carbon Dioxide BUN 41 H 38 H Creatinine Glucose 118 H POC Glucose Lactic Acid Calcium Phosphorus Magnesium AST ALT Alkaline Phosphatase Lactate Dehydrogenase Troponin T C-Reactive Protein NT-Pro-B Natriuret Pep Total Protein Albumin LDL Cholesterol Direct Vitamin B12 Urine WBC (Auto) Fluid Glucose Fluid Total Protein Vancomycin Trough Crossmatch 02/03/22 02/04/22 04:00 13:07 WBC RBC Hgb Hct MCV MCH MCHC RDW Plt Count Eos % (Auto) Eos # (Auto) Seg Neuts % (Manual) Lymphocytes % (Manual) Seg Neutrophils # Seg Neutrophils # Man Lymphocytes # (Manual) Monocytes # (Manual) PT INR APTT D-Dimer ABG pH ABG pO2 ABG HCO3 ABG O2 Saturation ABG Base Excess ABG Hemoglobin Oxyhemoglobin Sodium 136 L Potassium Chloride 95.7 L Carbon Dioxide BUN 42 H Creatinine Glucose 114 H POC Glucose 61 L Lactic Acid Calcium Phosphorus Magnesium AST ALT Alkaline Phosphatase Lactate Dehydrogenase Troponin T C-Reactive Protein NT-Pro-B Natriuret Pep Total Protein Albumin LDL Cholesterol Direct Vitamin B12 Urine WBC (Auto) Fluid Glucose Fluid Total Protein Vancomycin Trough Crossmatch Allied health notes reviewed: nursing
[2022-02-05 17:07] VITALS: BP 127/49
== END 2022-02-05 17:49 | disposition hospice, home (50) | DRG 4 ==
LOC: ED 21:43 → CC1 11-04 02:05 → IMCU 01-01 00:22
PROVIDERS: ADMIT Internal Medicine Geriatric Medicine; ATTEND Internal Medicine
PROC: 30233N1 Transfusion of Nonautologous Red Blood Cells into Peripheral Vein, Percutaneous Approach (ICD-10-PCS; principal; 2021-11-04)
PROC: 06HM33Z Insertion of Infusion Device into Right Femoral Vein, Percutaneous Approach (ICD-10-PCS; 2021-11-05)
PROC: B54BZZA Ultrasonography of Right Lower Extremity Veins, Guidance (ICD-10-PCS; 2021-11-05)
PROC: 02HV33Z Insertion of Infusion Device into Superior Vena Cava, Percutaneous Approach (ICD-10-PCS; 2021-11-05)
PROC: 5A09357 Assistance with Respiratory Ventilation, Less than 24 Consecutive Hours, Continuous Positive Airway Pressure (ICD-10-PCS; 2021-11-05)
PROC: 5A1955Z Respiratory Ventilation, Greater than 96 Consecutive Hours (ICD-10-PCS; 2021-11-06)
PROC: 0BH17EZ Insertion of Endotracheal Airway into Trachea, Via Natural or Artificial Opening (ICD-10-PCS; 2021-11-06)
PROC: 4A033R1 Measurement of Arterial Saturation, Peripheral, Percutaneous Approach (ICD-10-PCS; 2021-11-08)
PROC: 0W9930Z Drainage of Right Pleural Cavity with Drainage Device, Percutaneous Approach (ICD-10-PCS; 2021-11-11)
PROC: 0B9L8ZX Drainage of Left Lung, Via Natural or Artificial Opening Endoscopic, Diagnostic (ICD-10-PCS; 2021-11-11)
PROC: 06H03DZ Insertion of Intraluminal Device into Inferior Vena Cava, Percutaneous Approach (ICD-10-PCS; 2021-11-17)
PROC: 05HM33Z Insertion of Infusion Device into Right Internal Jugular Vein, Percutaneous Approach (ICD-10-PCS; 2021-11-17)
PROC: B543ZZA Ultrasonography of Right Jugular Veins, Guidance (ICD-10-PCS; 2021-11-17)
PROC: B51G1ZZ Fluoroscopy of Left Pelvic (Iliac) Veins using Low Osmolar Contrast (ICD-10-PCS; 2021-11-17)
PROC: B51L1ZZ Fluoroscopy of Bilateral Renal Veins using Low Osmolar Contrast (ICD-10-PCS; 2021-11-17)
PROC: 0W3P8ZZ Control Bleeding in Gastrointestinal Tract, Via Natural or Artificial Opening Endoscopic (ICD-10-PCS; 2021-11-18)
PROC: 0DB48ZX Excision of Esophagogastric Junction, Via Natural or Artificial Opening Endoscopic, Diagnostic (ICD-10-PCS; 2021-11-18)
PROC: 0B113F4 Bypass Trachea to Cutaneous with Tracheostomy Device, Percutaneous Approach (ICD-10-PCS; 2021-11-26)
PROC: 0DH63UZ Insertion of Feeding Device into Stomach, Percutaneous Approach (ICD-10-PCS; 2021-11-26)
PROC: 0W9930Z Drainage of Right Pleural Cavity with Drainage Device, Percutaneous Approach (ICD-10-PCS; 2021-12-11)
PROC: 0W9930Z Drainage of Right Pleural Cavity with Drainage Device, Percutaneous Approach (ICD-10-PCS; 2021-12-30)
PROC: 02HV33Z Insertion of Infusion Device into Superior Vena Cava, Percutaneous Approach (ICD-10-PCS; 2021-12-31)
PROC: B548ZZA Ultrasonography of Superior Vena Cava, Guidance (ICD-10-PCS; 2021-12-31)
PROC: 0W9930Z Drainage of Right Pleural Cavity with Drainage Device, Percutaneous Approach (ICD-10-PCS; 2022-01-06)
PROC: 0W9B30Z Drainage of Left Pleural Cavity with Drainage Device, Percutaneous Approach (ICD-10-PCS; 2022-01-16)
PROC: 0W9930Z Drainage of Right Pleural Cavity with Drainage Device, Percutaneous Approach (ICD-10-PCS; 2022-01-16)
DX: A40.1 Sepsis due to streptococcus, group B (principal); J96.01 Acute respiratory failure with hypoxia; R65.21 Severe sepsis with septic shock; J15.212 Pneumonia due to Methicillin resistant Staphylococcus aureus; I50.21 Acute systolic (congestive) heart failure; K29.71 Gastritis, unspecified, with bleeding; K26.4 Chronic or unspecified duodenal ulcer with hemorrhage; E87.0 Hyperosmolality and hypernatremia; I82.421 Acute embolism and thrombosis of right iliac vein; I82.419 Acute embolism and thrombosis of unspecified femoral vein; E87.1 Hypo-osmolality and hyponatremia; I42.9 Cardiomyopathy, unspecified; J93.9 Pneumothorax, unspecified; J91.8 Pleural effusion in other conditions classified elsewhere; I11.0 Hypertensive heart disease with heart failure; K44.9 Diaphragmatic hernia without obstruction or gangrene; Z20.822 Contact with and (suspected) exposure to COVID-19; E11.9 Type 2 diabetes mellitus without complications; D50.9 Iron deficiency anemia, unspecified; E87.8 Other disorders of electrolyte and fluid balance, not elsewhere classified; M19.90 Unspecified osteoarthritis, unspecified site; I27.20 Pulmonary hypertension, unspecified; E03.9 Hypothyroidism, unspecified; K26.9 Duodenal ulcer, unspecified as acute or chronic, without hemorrhage or perforation; I25.10 Atherosclerotic heart disease of native coronary artery without angina pectoris; F41.9 Anxiety disorder, unspecified; E87.6 Hypokalemia; Z95.1 Presence of aortocoronary bypass graft; Z98.61 Coronary angioplasty status; Z88.5 Allergy status to narcotic agent; Z88.0 Allergy status to penicillin; Z82.49 Family history of ischemic heart disease and other diseases of the circulatory system; Z80.9 Family history of malignant neoplasm, unspecified; Z95.5 Presence of coronary angioplasty implant and graft
CPT/HCPCS: 32551; 32555; 36415; 36600; 37191; 70450; 71045; 71275; 74018; 74176; 74177; 76604; 76705; 80048; 80053; 80061; 80076; 80202; 81001; 82140; 82270; 82271; 82607; 82728; 82803; 82947; 82962; 83605; 83615; 83735; 83880; 84100; 84160; 84443; 84484; 85007; 85014; 85018; 85025; 85027; 85379; 85610; 85730; 86140; 86850; 86900; 86901; 86920; 87040; 87070; 87076; 87086; 87116; 87186; 87205; 88112; 88305; 88312; 89051; 93005; 93010; 93306; 93970; 94002; 94003; 94640; 94660; 94760; 95819; G0378; J1815; J2354; J3490; J7502; J7510; Q9967; C1729; C1769; C1880; C8929; C9113; J0171; J0330; J0692; J0696; J1100; J1170; J1265; J1644; J1650; J1885; J1940; J1956; J2060; J2250; J2270; J2370; J2405; J2704; J2710; J2765; J2997; J3010; J3370; J3475; J3480; J7030; J7040; J7050; J7070; J7120; P9016; P9047; U0003